=== PATIENT | male | born 1960 | race Caucasian/White ===

== ENCOUNTER 2021-09-01 17:40 | Emergency (ER) | payer BC, SELFPAY ==
--- NOTE | ~2021-09-01 | XR_ITS ---
XR shoulder RT min 2V DATE: 09/01/2021 18:16 INDICATION: Fall. Right shoulder injury, pain TECHNIQUE: 3 views COMPARISON: None FINDINGS: No fracture or dislocation, periosteal reaction or bone destruction or abnormal soft tissue calcification is detected. Status post sternotomy and coronary bypass graft surgery. IMPRESSION: No fracture or dislocation of right shoulder is detected Reviewed, dictated and finalized at location [facility].
--- NOTE | ~2021-09-01 | CT_ITS ---
EXAMINATION: CT brain wo con DATE: 09/01/2021 18:08 INDICATION: Fall last night TECHNIQUE: Computed tomography (CT) of the head was performed without intravenous contrast. The mA wa s adjusted according to patient size. Iterative reconstruction technique was employed. Exam dose: 12 10.67 mGy-cm total exam DLP. COMPARISON: None FINDINGS: There is diminished attenuation of the right occipital lobe with irregular hemorrhage scatt ered through this area, suggesting a hemorrhagic infarct. Alternatively, hematoma and contusion would be a consideration. No intracranial mass lesion is evident. No midline shift or mass effect is noted. Bilateral carotid siphon and supraclinoid internal carotid artery calcifications and bilateral verteb ral artery and basilar artery calcifications. There is nonspecific diminished attenuation cerebral wh ite matter, likely due to chronic small vessel ischemic changes. No fracture or bone destruction of the cranial vault is detected. IMPRESSION: Right occipital hemorrhagic infarct or hematoma Cerebral atherosclerosis and chronic small vessel ischemic changes of the cerebral white matter The report was given by telephone from Dr. Watkins to emergency room physician Dr. Georges on 09/01/2021 at 1845 hours. Reviewed, dictated and finalized at [facility]. Reviewed, dictated and finalized at location A. IMPRESSION: Right occipital hemorrhagic infarct or hematoma Cerebral atherosclerosis and chronic small vessel ischemic changes of the cereb ral white matter The report was given by telephone from Dr. Watkins to emergency room physician Dr. Georges on 09/01/2021 at 1845 hours.
[2021-09-01 17:35] VITALS: BP 124/75; PULSE 94; RESP 18; TEMP 36.8; O2SAT 95
--- NOTE | 2021-09-01 17:55 | ECG_ITS ---
Measurements Intervals [place] Rate: 91 P: 34 OK: 179 QRS: -51 QRSD: 106 T: 95 QT: 366 QTc: 451 Interpretive Statements SINUS RHYTHM MARKED LEFT AXIS DEVIATION [QRS AXIS < -30] ANTERIOR MYOCARDIAL INFARCTION , OF INDETERMINATE AGE [40+ ms Q WAVE AND/OR ST/T ABNORMALITY IN V3/V4] NO PREVIOUS ECG AVAILABLE FOR COMPARISON Electronically Signed On 09-02-2021 13:00:41 CDT by Stefania Owens M.D.
--- NOTE | 2021-09-01 17:56 | ED.GENADULT ---
HPI - General Adult General Chief complaint: Altered Mental Status Stated complaint: psych Time Seen by Provider: 09/01/21 17:47 History of Present Illness HPI narrative: 61-year-old male presents emergency department by EMS for psychiatric evaluation. EMS and family states that the patient was recently at [facility] and had a negative work-up. They feel that nothing is changed but they wanted him brought here for evaluation. Patient does admit to having a fall last night, states he may have struck his head but denies any loss of consciousness. Patient does complain of right shoulder pain. Patient is alert and oriented x4. Related Data Allergies Allergy/AdvReac Type Severity Reaction Status Date / Time METOCLOPRAMIDE HCL Allergy Mild Vomiting Uncoded 09/01/21 17:45 Review of Systems Review of Systems: CONSTITUTIONAL: Denies fever, chills, or sweats. EYES: Denies visual changes, redness, or discharge. ENT: Denies rhinorrhea, congestion, sore throat, or otalgia. CARDIOVASCULAR: Denies chest pain, palpitations, or edema. RESPIRATORY: Denies cough or dyspnea. GASTROINTESTINAL: Denies abdominal pain, nausea, vomiting, or diarrhea. GENITOURINARY: Denies dysuria or hematuria. SKIN: Denies rash or itching. MUSCULOSKELETAL: Denies back pain, joint pain, or myalgia. NEUROLOGIC: Denies headache, numbness, or weakness. PMFSH Past Medical History Medical History (Updated 09/04/21 @ 19:53 by Johnny Martin MD) COPD (chronic obstructive pulmonary disease) Coronary artery disease CVA (cerebral vascular accident) Diabetes Hypertension Kidney stones Surgical History Surgical History (Updated 09/04/21 @ 19:48 by Johnny Martin MD) History of percutaneous coronary intervention x3 Family History Family History (Updated 01/16/16 @ 23:19 by DOCTOR UNKNOWN) Mother Family history of diabetes mellitus in first degree relative Other Diabetes mellitus Hypertension Social History Social History (Updated 09/04/21 @ 19:49 by Johnny Martin MD) Smoking status: Current some day smoker Alcohol intake: never Substance use type: does not use Exam Narrative: APPEARANCE: Well appearing, no pain, no distress, well-nourished. HEAD: normocephalic, atraumatic. EYES: PERRLA/EOMI, conjunctivae clear. NOSE: Normal no drainage NECK: Supple. No adenopathy, no masses. RESPIRATORY: Airway patent, respirations nonlabored. Clear to auscultation bilaterally, no rales, rhonchi, wheezing. CARDIOVASCULAR: Regular rate and rhythm without murmurs rubs or gallops. ABDOMINAL: Soft, nontender, nondistended, normal bowel sounds MUSCULOSKELETAL: Moves all extremities. Strength/ROM intact, No edema, No calf tenderness. NEURO: Alert. Cranial nerves II through XII intact. Good gait. Good coordination SKIN: Warm, dry. Normal Color PSYCHIATRIC: labile affect. confused at times and becomes tearful Course Course Emergency Course: case was discussed with neurology at [facility] due to CT finding of a possible hemorrhagic infarction. Due to the possibility of this being a result of trauma patient was accepted as an ED to ED transfer. Patient was updated on the results of his CT. Patient was requesting to sign out AMA so that he could go home to his . Patient's was requesting transfer. I had a long discussion with the patient and ultimately patient did agree to transfer. Patient was stable at time of transfer. Vital Signs Vital signs: Vital Signs Temperature 98.2 F 09/01/21 17:35 Pulse Rate 94 09/01/21 17:35 Respiratory Rate 18 09/01/21 17:35 Blood Pressure 124/75 09/01/21 17:35 Pulse Oximetry 95 09/01/21 17:35 Temperature 98.2 F 09/01/21 17:35 Pulse Rate 94 09/01/21 19:10 Respiratory Rate 18 09/01/21 19:10 Blood Pressure 128/99 H 09/01/21 19:10 Pulse Oximetry 100 09/01/21 19:10 Medical Decision Making Vital Signs Vital Signs: Vital Signs Temperature 98.2 F 09/01/21 17:35 Pulse Rate 94
[2021-09-01 18:30] LABS: Basophils Percent Auto 0.4 % (0.2-1.2); Eosinophils Absolute Auto 0.1 K/mm3 (0-0.3); Eosinophils Percent Auto 1.1 % (0-4.4); Hematocrit 34.8 % (42.0-52.0); Hemoglobin 11.4 g/dL (14.0-18.0); Immature Granulocyte Absolute 0.04 K/mm3 (0.00-0.031); Immature Granulocyte Percent A 0.4 % (0-0.5); Lymphocytes Absolute Auto 1.85 K/mm3 (0.9-3.2); Lymphocytes Percent Auto 18.1 % (18.3-44.2); Mean Corpuscular HGB Conc 32.8 g/dl (32-36); Mean Corpuscular Hemoglobin 31.1 pg (26-34); Mean Corpuscular Volume 94.8 fl (80-100); Mean Platelet Volume 11.6 fl (7.4-10.4); Monocytes Absolute Auto 1.1 K/mm3 (0.1-0.6); Monocytes Percent Auto 10.8 % (2.6-8.5); Neutrophils Absolute Auto 7.1 K/mm3 (1.3-6.7); Neutrophils Percent Auto 69.2 % (45.5-73.1); Platelet Count Result 290 k/mm3 (150-375); Red Blood Count 3.67 M/mm3 (4.6-6.20); Red Cell Distribution Width 13.8 % (11.5-14.5); White Blood Count 10.2 K/mm3 (4.5-10.0)
[2021-09-01 18:35] VITALS: O2SAT 96
[2021-09-01 18:37] VITALS: BP 123/85; PULSE 89; RESP 16; O2SAT 96
[2021-09-01 18:40] LABS: Add Urine Microscopic? YES; Appearance Urine Clear (Clear); Bacteria Urine Trace /hpf; Bilirubin Urine Negative (Negative); Blood Urine Negative (Negative); Color Urine Yellow (Yellow); Glucose Urine UA 3+ mg/dL (Negative); Ketones Urine 1+ mg/dL (Negative); Leukocyte Esterase Ur Negative LEU/UL (Negative); Mucus Urine Rare /lpf; Nitrate Urine Negative (Negative); Protein Urine Negative (Negative); RBC Urine 0-2 /hpf (0-2); Urobilinogen Urine Negative mg/dL (<2.0); WBC Urine 0-3 /hpf
[2021-09-01 18:41] LABS: Acetaminophen < 10 ug/mL (10-30); Ethanol < 10 mg/dL (<10); Salicylate < 1.0 mg/dL (2-20)
[2021-09-01 18:45] VITALS: PULSE 87; RESP 17; O2SAT 96
[2021-09-01 18:52] LABS: INR 1.1; Prothrombin Time 13.6 Seconds (11.1-14.7)
[2021-09-01 18:54] LABS: Partial Thromboplastin Time 45.7 SECONDS (22.3-36.8)
[2021-09-01 18:57] LABS: Alanine Aminotransferase 11 U/L (4-50); Albumin Level 4.1 g/dL (3.5-5.1); Alkaline Phosphatase 97 U/L (38-126); Anion Gap 11 mmol/L (8-16); Aspartate Amino Transferase 18 U/L (17-59); Bilirubin,Total 0.6 mg/dL (0.2-1.3); Blood Urea Nitrogen 8 mg/dL (9-20); Calcium 8.9 mg/dL (8.4-10.2); Carbon Dioxide 21 mmol/L (22-30); Chloride 106 mmol/L (98-107); Estimated CRCL calculation 94 ml/min; Estimated Glomerular Filt Rate > 60; Glucose 217 mg/dL (65-110); Potassium 3.5 mmol/L (3.4-5.0); Sodium 138 mmol/L (137-145)
[2021-09-01 19:10] VITALS: BP 128/99; PULSE 94; RESP 18; O2SAT 100
[2021-09-01 19:27] LABS: Thyroid Stimulating Hormone 0.903 uIU/mL (0.465-4.680)
--- NOTE | 2021-09-01 19:59 | PC.NURSE ---
1720 pt refusing transfer to [facility] states he wants to go home and will come back to hospital tomorrow. Advised to go to [facility] erp notified of patient request will talk with patient
--- NOTE | 2021-09-01 20:01 | PC.NURSE ---
pt dressed and sitting on end of stretcher requesting to leave does not have ride home
--- NOTE | 2021-09-01 20:08 | PC.NURSE ---
spoke with she agrees he should stay in the hospital and will ask him to stay
--- NOTE | 2021-09-01 20:10 | PC.NURSE ---
called [facility] for ETA update. ETA 04-03
--- NOTE | 2021-09-01 20:20 | PC.NURSE ---
pt insisting on leaving advised to stay A&O x 2 does not recall what day it is states he does not play the day game anymore. Spoke with again she wants pt to go to [facility] and will not be able to pick him up. Erp notified will talk with patient.
--- NOTE | 2021-09-01 20:27 | PC.NURSE ---
pt agrees to transfer
[2021-09-01 21:03] LABS: Amphetamine Screen Urine Negative (Negative); Barbiturate Screen Urine Negative (Negative); Benzodiazepines Screen Urine Negative (Negative); Cannabinoid Screen Urine Negative (Negative); Cocaine Screen Urine Negative (Negative); Methadone Screen Urine Negative (Negative); Opiate Screen Urine Negative (Negative); Phencyclidine Screen Urine Negative (Negative)
== END 2021-09-01 20:30 | disposition short-term general hospital (02) ==
PROVIDERS: Emergency Provider Emergency Medicine
DX: S06.360A Traumatic hemorrhage of cerebrum, unspecified, without loss of consciousness, initial encounter (principal); S49.91XA Unspecified injury of right shoulder and upper arm, initial encounter; R94.31 Abnormal electrocardiogram [ECG] [EKG]; W19.XXXA Unspecified fall, initial encounter
CPT/HCPCS: 36415; 70450; 73030; 80053; 80307; 81001; 84443; 85025; 85610; 85730; 86850; 86900; 86901; 93005; 99285

== ENCOUNTER 2021-09-04 14:47 | Observation (INO) | payer BC, SELFPAY ==
[2021-09-04] VITALS (8 sets, daily range): BP systolic 110–122; BP diastolic 69–77; PULSE 80–93; RESP 15–22; TEMP 36.6; O2SAT 97–100; BMI 23.7
--- NOTE | ~2021-09-04 | XR_ITS ---
XR chest 2V DATE: 09/04/2021 15:47 INDICATION: Hallucinations TECHNIQUE: AP and lateral views COMPARISON: 11/22/2013 PA and lateral chest FINDINGS: Status post sternotomy. Heart size is within normal range. No hilar or mediastinal enlargement. Bilateral hyperinflation. No pulmonary infiltrate or consolidation, pleural effusion or pulmonary vas cular congestion or pneumothorax is detected. There is mild dextroscoliosis of the thoracolumbar spine. Diffuse osteopenia. IMPRESSION: Status post sternotomy No active cardiopulmonary disease Moderate hyperinflation Reviewed, dictated and finalized at location A.
--- NOTE | 2021-09-04 15:29 | ED.PSYCH ---
HPI - Psych General Chief Complaint: Psychiatric Symptoms Stated Complaint: mental evaluation? Time Seen by Provider: 09/04/21 15:02 History of Present Illness HPI Narrative: Patient is a 61-year-old male who presents ER for psychiatric evaluation by his . Patient's reports that over the last 2 months since patient had a stroke in June 2021 patient has had confusion. She reports that he was wandering outside in his loss. Please keep being called by neighbors due to his generalized confusion and wandering. He has been starting to cut open pillows and sheets with scissors at night because he thinks there are people trying to sleep with his . He currently endorses that there is a clown standing against wall in the room and that there are 2 other individuals there. Patient's reports that he is also been leaving the gas on the oven on in the home and was found messing with the water heater today. Patient does not remember these instances. He was seen here on 09/01 and was found to have a hemorrhagic stroke. From what I can understand from the patient then went to [facility], they were told that this was stable and he was discharged from the hospital yesterday. She reports he did not engage on his hallucinations and they told her that he merely had cognitive decline. From conversation sounds like patient has been to multiple hospitals for this including [facility] which is where all the symptoms began several months back. Related Data Allergies Allergy/AdvReac Type Severity Reaction Status Date / Time METOCLOPRAMIDE HCL Allergy Mild Vomiting Uncoded 09/01/21 17:45 Review of Systems Review of Systems: ROS unobtainable: Yes unobtainable due to mental status PMFSH Past Medical History Medical History (Updated 09/04/21 @ 19:53 by Johnny Martin MD) COPD (chronic obstructive pulmonary disease) Coronary artery disease CVA (cerebral vascular accident) Diabetes Hypertension Kidney stones Surgical History Surgical History (Updated 09/04/21 @ 19:48 by Johnny Martin MD) History of percutaneous coronary intervention x3 Family History Family History (Updated 01/16/16 @ 23:19 by DOCTOR UNKNOWN) Mother Family history of diabetes mellitus in first degree relative Other Diabetes mellitus Hypertension Social History Social History (Updated 09/04/21 @ 19:49 by Johnny Martin MD) Smoking status: Current some day smoker Alcohol intake: never Substance use type: does not use Exam Narrative: GENERAL: Well-appearing, well-nourished, and in no acute distress. HEAD: Normocephalic, atraumatic. EYES: PERRLA and EOMI. ENT: Mucous membranes moist. CHEST: Clear to auscultation. No respiratory distress. HEART: Regular rate and rhythm. Normal peripheral pulses. ABDOMEN: Soft, nontender, nondistended. EXTREMITIES: Normal range of motion. No edema. SKIN: Warm, dry, no rash. NEURO: Patient intermittently alert and oriented x3 but usually confused after repeated questioning. No facial droop or word searching. No dysarthria. Moves all extremities well. Patient has difficulty following lines of questioning. PSYCH: Slight anxiousness, endorses seeing people in the room that are not actually there. He is not interacting with these visual hallucinations. No SI/HI. Course Course Emergency Course: Patient with some increased agitation. May be related to time of day or due to the Ativan. Patient is taken off his close was now laying on his side in the bed. Admit to hospitalist service. Vital Signs Vital signs: Vital Signs Pulse Oximetry 100 09/04/21 15:03 Temperature 98 F 09/04/21 15:45 Pulse Rate 80 09/04/21 16:00 Respiratory Rate 15 09/04/21 16:00 Blood Pressure 113/77 09/04/21 15:16 Pulse Oximetry 100 09/04/21 16:00 MDM - Psych Lab Data Result diagrams: 09/04/21 15:50 09/04/21 15:50 Labs: Lab Results 09/04
--- NOTE | 2021-09-04 15:56 | PC.NURSE ---
Records request faxed to [facility].
[2021-09-04 16:01] LABS: Add Urine Microscopic? YES; Appearance Urine Clear (Clear); Bilirubin Urine Negative (Negative); Blood Urine Negative (Negative); Color Urine Straw (Yellow); Glucose Urine UA 3+ mg/dL (Negative); Ketones Urine Negative (Negative); Leukocyte Esterase Ur Negative LEU/UL (Negative); Mucus Urine Rare /lpf; Nitrate Urine Negative (Negative); Protein Urine Negative (Negative); Squamous Epithelial Cell Urine Rare /hpf (Few); Urobilinogen Urine Negative mg/dL (<2.0); WBC Urine 0-3 /hpf
[2021-09-04 16:03] LABS: Basophils Absolute Auto 0.1 K/mm3 (0.0-0.1); Basophils Percent Auto 0.7 % (0.2-1.2); Eosinophils Absolute Auto 0.2 K/mm3 (0-0.3); Hematocrit 35.9 % (42.0-52.0); Hemoglobin 11.8 g/dL (14.0-18.0); Immature Granulocyte Absolute 0.02 K/mm3 (0.00-0.031); Immature Granulocyte Percent A 0.2 % (0-0.5); Lymphocytes Absolute Auto 1.96 K/mm3 (0.9-3.2); Lymphocytes Percent Auto 22.2 % (18.3-44.2); Mean Corpuscular HGB Conc 32.9 g/dl (32-36); Mean Corpuscular Hemoglobin 31.3 pg (26-34); Mean Corpuscular Volume 95.2 fl (80-100); Mean Platelet Volume 11.2 fl (7.4-10.4); Monocytes Percent Auto 11.8 % (2.6-8.5); Neutrophils Absolute Auto 5.6 K/mm3 (1.3-6.7); Neutrophils Percent Auto 63.1 % (45.5-73.1); Platelet Count Result 306 k/mm3 (150-375); Red Blood Count 3.77 M/mm3 (4.6-6.20); Red Cell Distribution Width 13.7 % (11.5-14.5); White Blood Count 8.8 K/mm3 (4.5-10.0)
[2021-09-04 16:04] LABS: Specific Grav Ur 1.035 (1.001-1.035)
[2021-09-04 16:07] LABS: Amphetamine Screen Urine Negative (Negative); Barbiturate Screen Urine Negative (Negative); Benzodiazepines Screen Urine Negative (Negative); Cannabinoid Screen Urine Negative (Negative); Cocaine Screen Urine Negative (Negative); Methadone Screen Urine Negative (Negative); Opiate Screen Urine Negative (Negative); Phencyclidine Screen Urine Negative (Negative)
[2021-09-04 16:13] LABS: Alanine Aminotransferase 12 U/L (4-50); Alkaline Phosphatase 93 U/L (38-126); Anion Gap 9 mmol/L (8-16); Aspartate Amino Transferase 20 U/L (17-59); Bilirubin,Total 0.3 mg/dL (0.2-1.3); Blood Urea Nitrogen 9 mg/dL (9-20); Calcium 8.6 mg/dL (8.4-10.2); Carbon Dioxide 23 mmol/L (22-30); Chloride 104 mmol/L (98-107); Estimated Glomerular Filt Rate > 60; Glucose 259 mg/dL (65-110); Potassium 3.8 mmol/L (3.4-5.0); Sodium 136 mmol/L (137-145)
[2021-09-04 16:14] LABS: Ethanol < 10 mg/dL (<10)
[2021-09-04 16:28] LABS: Valproic Acid 12.3 ug/mL (50-120)
[2021-09-04] MEDS: LORazepam INJ (*CRX) 2 MG/ML VIAL 1 MG IV PUSH (17:24)
--- NOTE | 2021-09-04 19:15 | PM.IMHP ---
H&P: HPI History of Present Illness Date/Time: 09/04/21 19:15 Chief Complaint: Behavioral issues. Narrative: This is an unfortunate 61-year-old male with coronary artery disease, hypertension, dyslipidemia, diabetes, and ischemic stroke in June 2021 with hemorrhagic conversion who presented to the emergency department via private vehicle accompanied by his for evaluation of behavioral issues. Given his current clinical condition, he is unable to provide an accurate history and as such all of the following is obtained via a review of his electronic medical records as well as lengthy discussions with his . Near the end of June he started to complain of vision changes and vertigo at which time he was seen at [place] and transferred to [facility] for what sounds like an ischemic stroke where he was admitted for a couple of days and was discharged home. A week or so thereafter he developed confusion and was once again seen in the ER and at that time he was transferred to [place] due to what sounds like hemorrhagic conversion of his stroke. He was at [place] for several days and he was started on Keppra given concerns for possible seizure related to the stroke. He was once again discharged home however since that time states he has just not been his usual self. Apparently he has been suffering from hallucinations (seeing things that are not there and imagining bizarre scenarios) and confusion (he has been turning on the gas stove in their home and has been wandering outside of the house and giving false reports to neighbors and encouraging them to call the please). Several days ago while out walking he sustained a fall and he was brought to this facility where a brain CT showed a right occipital hemorrhagic infarct or hematoma and he was transferred to [facility]. He was started on trazodone at that facility for and his Keppra dose was decreased as there were concerns that his confusion was related to this drug. He was discharged home just yesterday evening and unfortunately he continues to have behavioral disturbances. In addition to hallucinations and confusion, he is occasionally aggressive to his and teenage sons and his is just not able to handle him at home in this state. The symptoms seem to be worse in the evening and at nighttime. The patient is still continent and able to dress himself and eat without assistance. Prior to his bypass surgery in April 2021, he never demonstrated bizarre behavior though he had episodes of delirium during that stay though he was his usual self when he went home after the bypass. At the time my evaluation he is constantly trying to get out of bed and reports that he seems to be more confused after receiving Ativan in the ER. Ultimately he decided to sit cross-legged in bed and he has pulled the sheet up over his head. He gave me one-word answers to a couple of my questions and did not really participate. Review of Systems Review of Systems: A review of systems is unable to be obtained given his current clinical condition as detailed above. denies recent illnesses. He has not voiced any complaints to his . [facility] Past Medical History Medical History (Updated 09/04/21 @ 22:06 by Rosita Lyons PA-C) Cerebrovascular accident (06/2021) It sounds as though he had an ischemic stroke (symptoms include vertigo and visual changes) with hemorrhagic conversion. Chronic obstructive pulmonary disease Coronary artery disease Status post bifurcation stents to the LAD and diagonal in 2006, stent to the LAD for in-stent restenoses in 2009, and CABG in April 2021 at [facility]. Gastroesophageal reflux disease Hypertension Kidney stones Type 2 diabetes mellitus Surgical History Surgical History (Updated 09/04/21 @ 21:48 by Rosita Lyons PA-C) History of coronary artery bypass graft (04/2021) Done at [facility]. History of inguinal dane
--- NOTE | 2021-09-04 19:37 | PC.NURSE ---
1824 Called to patient's room by and tech. Patient had removed all of his clothing and had grabbed his by the shirt collar. Resettled patient in bed with bed alarm. Removed secured entrance monitor, pulse ox, and blood pressure cuff due to patient's confusion. Notified Dr. Martin.
--- NOTE | 2021-09-04 20:25 | ADMGEN ---
This patient, Baldev Qiu, was admitted to [facility] Surg Room 317-02. Patient/family oriented to hospital policies and general routines including ID bracelet, bed and alarms, visiting hours, pain management, procedures, bathroom and other care routines, personal items, smoking policy, room service/diet, and visiting hours. Information on how to activate the Rapid Response Team has been discussed. Patient/Family are encouraged to report perceived risks to care and to ask questions if they do not understand what they are told or what they should do.
[2021-09-05 05:48] VITALS: BP 117/76; PULSE 87; RESP 18; TEMP 36.2; O2SAT 96
[2021-09-05 05:59] LABS: Hematocrit 39.3 % (42.0-52.0); Hemoglobin 12.9 g/dL (14.0-18.0); Mean Corpuscular HGB Conc 32.8 g/dl (32-36); Mean Corpuscular Hemoglobin 30.4 pg (26-34); Mean Corpuscular Volume 92.7 fl (80-100); Platelet Count Result 311 k/mm3 (150-375); Red Blood Count 4.24 M/mm3 (4.6-6.20); Red Cell Distribution Width 13.4 % (11.5-14.5); White Blood Count 7.8 K/mm3 (4.5-10.0)
[2021-09-05 06:11] LABS: Hemoglobin A1C 10.5 % (<5.7)
[2021-09-05 06:13] LABS: Alanine Aminotransferase 13 U/L (4-50); Albumin Level 3.9 g/dL (3.5-5.1); Alkaline Phosphatase 90 U/L (38-126); Anion Gap 7 mmol/L (8-16); Aspartate Amino Transferase 21 U/L (17-59); Bilirubin,Total 0.3 mg/dL (0.2-1.3); Blood Urea Nitrogen 8 mg/dL (9-20); Calcium 8.7 mg/dL (8.4-10.2); Carbon Dioxide 24 mmol/L (22-30); Chloride 107 mmol/L (98-107); Estimated CRCL calculation 119 ml/min; Estimated Glomerular Filt Rate > 60; Glucose 137 mg/dL (65-110); Magnesium 1.9 mg/dL (1.6-2.3); Potassium 3.7 mmol/L (3.4-5.0); Sodium 138 mmol/L (137-145)
[2021-09-05 06:49] LABS: Ammonia < 9 umol/L (9-30)
[2021-09-05 07:57] LABS: Glucose Point of Care 142 mg/dl (65-105)
[2021-09-05 08:47] VITALS: O2SAT 96
[2021-09-05 11:42] LABS: Glucose Point of Care 185 mg/dl (65-105)
--- NOTE | 2021-09-05 12:47 | WPDNEURCNPN ---
Consult date: 09/05/21 HPI: Baldev Qiu is a 61 year old male brought to the emergency room for the mental evaluation by his reportedly over the last 2 months, ever since the patient had a stroke in June of 2021 he has confusion. He was reportedly wandering outside . He kept calling his neighbors due to his generalized confusion and wandering and has started to cut open pillows and sheets with seizures at night because he was thinking there are people trying to sleep with his he was currently in dosing that there is a prolonged standing against the wall in the room and the 2 other individuals there he has been leaving the gas on the oven and was also found messing with water heater day of admission though patient is unable to remember these instances he was found to have a hemorrhagic stroke on 09/01 then he was transferred to [facility] and was discharged after being told that he was stable from the conversation in the emergency room his sounded like patient had been to multiple hospitals including [facility] way all the symptoms began several months ago. Patient is reportedly allergic to metoclopramide, has the history of COPD, coronary artery disease, diabetes mellitus, hypertension, and cerebrovascular accident. He has also undergone percutaneous coronary intervention, he is currently some day smoker he is not alcohol consumer at present, initial lab evaluation was unrewarding valproic acid level 12.3 alcohol level less than [address] scan of the head documented right occipital hemorrhagic infarct with chronic small vessel ischemic changes, evidently shoulder x-rays revealed no fracture or dislocation of the right shoulder and chest x-ray documented status post sternotomy with no acute cardiopulmonary disease. Routine lab was consistent of only hyperglycemia and glycosuria Review of Systems Review of Systems: All systems reviewed & are unremarkable except as noted in HPI and below [facility] Past Medical History Medical History Cerebrovascular accident (06/2021) It sounds as though he had an ischemic stroke (symptoms include vertigo and visual changes) with hemorrhagic conversion. Chronic obstructive pulmonary disease Coronary artery disease Status post bifurcation stents to the LAD and diagonal in 2006, stent to the LAD for in-stent restenoses in 2009, and CABG in April 2021 at [facility]. Gastroesophageal reflux disease Hypertension Kidney stones Type 2 diabetes mellitus Surgical History Surgical History History of coronary artery bypass graft (04/2021) Done at [facility]. History of inguinal hernia repair History of myringoplasty History of percutaneous coronary intervention Bifurcation stents to LAD and diagonal in 2006. Stent to the LAD in 2009. Family History Family History Mother Family history of diabetes mellitus in first degree relative Other Diabetes mellitus Hypertension Social History Social History Social History: The patient lives with his and 2 teenage sons in [place]. 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 He smoked about a pack a day and quit at the time of his bypass in April 2021. No alcohol or illicit substance abuse. Fadumo Qiu, , is his surrogate decision maker. Code status: Full code. Years smoked: 45 Tobacco type: cigarettes Other substance usage details: Alcholic in his 20's Spiritual care concerns: No Meds Home Medications and Allergies Home Medications Medication Instructions Recorded Confirmed Type albuterol sulfate [ProAir HFA] 90 mcg INHALATION QID 09/05/21 09/05/21 History aspirin [Adult Low Dose Aspirin] 81 mg PO DAILY 09/05/21 09/05/21 History atorvastatin [Lipitor] 40 mg PO DAILY 09/05/21
--- NOTE | 2021-09-05 13:28 | PM.IMPN ---
Progress Note: A&P Assessment and Plan (1) Behavior disturbance: Code(s): F91.9 - Conduct disorder, unspecified Status: Acute Assessment and Plan: He may very well have vascular dementia though some behavioral changes may have stemmed from his stroke. reports that his confusion and hallucinations were much worse after he was started on Keppra and it may be prudent to try a different anti seizure medication thus will ask Dr. Davidson to see him in consultation. There are no focal deficits on exam and his labs are not concerning for a metabolic cause of his behavior. He seemed to get more confused with Ativan given in the ER thus I would avoid benzodiazepines in this gentleman. Trazodone is probably not the best drug if we were worried about seizures. If he is difficult to control with reorientation or becomes a harm to himself, Seroquel or another antipsychotic may be appropriate. Initiate fall precautions. (2) Delirium: Code(s): R41.0 - Disorientation, unspecified Status: Acute Assessment and Plan: An ongoing problem over the last several weeks as detailed above. Hopefully we can find a medication regimen that is beneficial for the patient and keep him safe however he is unable to go home in this state. Plan is as detailed above. (3) Hypertension: Code(s): I10 - Essential (primary) hypertension Status: Acute Assessment and Plan: Blood pressures were reviewed and they are stable. Continue antihypertensives and monitor closely. (4) Type 2 diabetes mellitus: Code(s): E11.9 - Type 2 diabetes mellitus without complications Status: Acute Assessment and Plan: Random glucose was over 200. Patient's hemoglobin A1c is 10.5. It appears the patient was on Jardiance at home, but unsure of compliance at this time. Will resume patient's home Jardiance and continue with blood glucose monitoring before meals and at bedtime sliding scale insulin. (5) Chronic obstructive pulmonary disease: Code(s): J44.9 - Chronic obstructive pulmonary disease, unspecified Status: Acute Assessment and Plan: No acute issues. (6) Recent cerebrovascular accident: Code(s): Z86.73 - Personal history of transient ischemic attack (TIA), and cerebral infarction without residual deficits Status: Acute Assessment and Plan: It sounds as though the patient suffered an ischemic stroke with hemorrhagic conversion. Records requested for review. (7) Coronary artery disease: Code(s): I25.10 - Atherosclerotic heart disease of [place] coronary artery without angina pectoris Status: Acute Assessment and Plan: Status post CABG in April 2021. No acute issues. Subjective Date/time seen: 09/05/21 13:28 Patient resting in bed states he feels fine and would like to go home. Patient remains confused thinking he is at [facility]. Patient is able to say that the year is 2021. Patient denies seeing any people in his room or having any hallucinations at this time. Review of Systems Review of Systems: Unsure of how accurate review of systems are secondary to patient's confusion. Exam Narrative: Constitutional: Patient is a cachectic unkempt 61-year-old gentleman who is in no acute distress. Patient is alert and oriented x3 HEENT: Moist mucous membranes. No scleral icterus. No lymphadenopathy. Neck: No carotid bruits noted no JVD noted Lungs: Lung sounds are clear to auscultation bilaterally. No accessory muscle use. No rhonchi, rales, or wheezes noted. Cardiovascular: Apical pulse is regular rate and rhythm. S1-S2 noted, no S3 or S4 noted. No gallops, murmurs, or rubs noted. Abdomen: Soft, round, and nontender. No palpable masses. Extremities: No edema. Nontender. Skin: No rashes or lesions. Warm and dry. Skin is intact. Neurological: No focal neurological deficits. Cranial nerves II-XII grossly intact.
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
[2021-09-05 14:00] VITALS: BP 143/79; PULSE 89; RESP 16; TEMP 36.2; O2SAT 100
[2021-09-05] MEDS: ATORVASTATIN 40 MG TABLET PO (14:14)
[2021-09-05] MEDS: ASPIRIN 81 MG ENTERIC TABLET PO (14:14)
[2021-09-05] MEDS: EMPAGLIFLOZIN 10 MG TABLET PO (14:15)
[2021-09-05] MEDS: lisinopriL 5 MG TABLET PO (14:15)
[2021-09-05] MEDS: CLOPIDOGREL BISULFATE 75 MG TABLET PO (14:15)
[2021-09-05] MEDS: DIVALPROEX SODIUM ER 500 MG TAB.24H PO (14:15)
[2021-09-05] MEDS: FENOFIBRATE 160 MG TABLET PO (14:15)
[2021-09-05] MEDS: carBAMazepine 200 MG TABLET PO ×2 (15:32→19:51)
[2021-09-05] MEDS: ALBUTEROL SULFATE (*SP) AEROSOL 1 PUFF INHALATION ×2 (16:00→21:01)
[2021-09-05 16:46] LABS: Glucose Point of Care 150 mg/dl (65-105)
[2021-09-05 19:50] VITALS: PULSE 74
[2021-09-05] MEDS: carvediloL 3.125 MG TABLET PO (19:50)
[2021-09-05] MEDS: levETIRAcetam Tablet 250 MG, levETIRAcetam Tablet 500 MG 750 MG PO (19:50)
[2021-09-05] MEDS: QUEtiapine FUMARATE 25 MG TABLET PO (20:18)
[2021-09-05 21:03] VITALS: O2SAT 97
[2021-09-05 21:35] VITALS: BP 130/82; PULSE 98; RESP 20; TEMP 36.6; O2SAT 100
[2021-09-05 23:25] LABS: Glucose Point of Care 158 mg/dl (65-105)
[2021-09-06] VITALS (7 sets, daily range): BP systolic 93–104; BP diastolic 60–65; PULSE 66–85; RESP 16–20; TEMP 36.1–36.6; O2SAT 92–99
[2021-09-06 06:08] LABS: Basophils Absolute Auto 0.1 K/mm3 (0.0-0.1); Basophils Percent Auto 0.7 % (0.2-1.2); Eosinophils Absolute Auto 0.3 K/mm3 (0-0.3); Eosinophils Percent Auto 2.6 % (0-4.4); Hematocrit 38.7 % (42.0-52.0); Hemoglobin 12.6 g/dL (14.0-18.0); Immature Granulocyte Absolute 0.04 K/mm3 (0.00-0.031); Immature Granulocyte Percent A 0.4 % (0-0.5); Lymphocytes Percent Auto 25.1 % (18.3-44.2); Mean Corpuscular HGB Conc 32.6 g/dl (32-36); Mean Corpuscular Volume 95.1 fl (80-100); Mean Platelet Volume 11.2 fl (7.4-10.4); Monocytes Absolute Auto 1.1 K/mm3 (0.1-0.6); Monocytes Percent Auto 10.9 % (2.6-8.5); Neutrophils Percent Auto 60.3 % (45.5-73.1); Platelet Count Result 306 k/mm3 (150-375); Red Blood Count 4.07 M/mm3 (4.6-6.20); Red Cell Distribution Width 13.6 % (11.5-14.5)
[2021-09-06 06:21] LABS: Anion Gap 10 mmol/L (8-16); Blood Urea Nitrogen 12 mg/dL (9-20); Calcium 8.4 mg/dL (8.4-10.2); Carbon Dioxide 22 mmol/L (22-30); Chloride 104 mmol/L (98-107); Estimated CRCL calculation 91 ml/min; Estimated Glomerular Filt Rate > 60; Glucose 183 mg/dL (65-110); Magnesium 1.9 mg/dL (1.6-2.3); Potassium 3.9 mmol/L (3.4-5.0); Sodium 136 mmol/L (137-145)
[2021-09-06] MEDS: ALBUTEROL SULFATE (*SP) AEROSOL 1 PUFF INHALATION ×4 (08:33→19:55)
[2021-09-06 08:35] LABS: Glucose Point of Care 174 mg/dl (65-105)
[2021-09-06] MEDS: carvediloL 3.125 MG TABLET PO ×2 (08:36→20:10)
[2021-09-06] MEDS: ATORVASTATIN 40 MG TABLET PO (08:36)
[2021-09-06] MEDS: lisinopriL 5 MG TABLET PO (08:36)
[2021-09-06] MEDS: carBAMazepine 200 MG TABLET PO ×2 (08:36→20:10)
[2021-09-06] MEDS: CLOPIDOGREL BISULFATE 75 MG TABLET PO (08:36)
[2021-09-06] MEDS: DIVALPROEX SODIUM ER 500 MG TAB.24H PO (08:36)
[2021-09-06] MEDS: ASPIRIN 81 MG ENTERIC TABLET PO (08:36)
[2021-09-06] MEDS: EMPAGLIFLOZIN 10 MG TABLET PO (08:36)
[2021-09-06] MEDS: FENOFIBRATE 160 MG TABLET PO (08:36)
--- NOTE | 2021-09-06 10:00 | PM.IMPN ---
Progress Note: A&P Assessment and Plan (1) Behavior disturbance: Code(s): F91.9 - Conduct disorder, unspecified Status: Acute Assessment and Plan: He may very well have vascular dementia though some behavioral changes may have stemmed from his stroke. reports that his confusion and hallucinations were much worse after he was started on Keppra and it may be prudent to try a different anti seizure medication. Neurology consulted ativan worsned his confusion. fall precautions. seroquel at night. will scheudle for this evening. he is started on tegretal with depakote. furthe rworkup per neurology. EEG in am. has undelryhing ct evdience of right temporooccipital hematoma with local mass effect and some vasogenic edema. (2) Delirium: Code(s): R41.0 - Disorientation, unspecified Status: Acute Assessment and Plan: An ongoing problem over the last several weeks as detailed above. Hopefully we can find a medication regimen that is beneficial for the patient and keep him safe however he is unable to go home in this state. Plan is as detailed above. (3) Hypertension: Code(s): I10 - Essential (primary) hypertension Status: Acute Assessment and Plan: Blood pressures were reviewed and they are stable. Continue antihypertensives and monitor closely. (4) Type 2 diabetes mellitus: Code(s): E11.9 - Type 2 diabetes mellitus without complications Status: Acute Assessment and Plan: Random glucose was over 200. Patient's hemoglobin A1c is 10.5. It appears the patient was on Jardiance at home, but unsure of compliance at this time. Will resume patient's home Jardiance and continue with blood glucose monitoring before meals and at bedtime sliding scale insulin. (5) Chronic obstructive pulmonary disease: Code(s): J44.9 - Chronic obstructive pulmonary disease, unspecified Status: Acute Assessment and Plan: No acute issues. (6) Recent cerebrovascular accident: Code(s): Z86.73 - Personal history of transient ischemic attack (TIA), and cerebral infarction without residual deficits Status: Acute Assessment and Plan: It sounds as though the patient suffered an ischemic stroke with hemorrhagic conversion. Records requested for review. (7) Coronary artery disease: Code(s): I25.10 - Atherosclerotic heart disease of [place] coronary artery without angina pectoris Status: Acute Assessment and Plan: Status post CABG in April 2021. No acute issues. on aspirin only which was restarted. plavix stopped from recent hospital stay. cotninue on atorvastatin Subjective Date/time seen: 09/06/21 10:00 Interval history: HPI:This is an unfortunate 61-year-old male with coronary artery disease, hypertension, dyslipidemia, diabetes, and ischemic stroke in June 2021 with hemorrhagic conversion who presented to the emergency department via private vehicle accompanied by his for evaluation of behavioral issues. Given his current clinical condition, he is unable to provide an accurate history and as such all of the following is obtained via a review of his electronic medical records as well as lengthy discussions with his . Near the end of June he started to complain of vision changes and vertigo at which time he was seen at [place] and transferred to [facility] for what sounds like an ischemic stroke where he was admitted for a couple of days and was discharged home. A week or so thereafter he developed confusion and was once again seen in the ER and at that time he was transferred to [place] due to what sounds like hemorrhagic conversion of his stroke. He was at [place] for several days and he was started on Keppra given concerns for possible seizure related to the stroke. He was once again discharged home however since that time states he has just not been his usual self. Apparently he has been sufferin
[2021-09-06 11:59] LABS: Glucose Point of Care 174 mg/dl (65-105)
[2021-09-06 16:55] LABS: Glucose Point of Care 157 mg/dl (65-105)
[2021-09-06 19:34] LABS: Glucose Point of Care 150 mg/dl (65-105)
[2021-09-06] MEDS: QUEtiapine FUMARATE 12.5 MG TABLET PO (20:09)
[2021-09-07 05:53] LABS: Basophils Absolute Auto 0.1 K/mm3 (0.0-0.1); Basophils Percent Auto 0.7 % (0.2-1.2); Eosinophils Absolute Auto 0.3 K/mm3 (0-0.3); Eosinophils Percent Auto 2.5 % (0-4.4); Hematocrit 41.4 % (42.0-52.0); Hemoglobin 13.5 g/dL (14.0-18.0); Immature Granulocyte Absolute 0.04 K/mm3 (0.00-0.031); Immature Granulocyte Percent A 0.4 % (0-0.5); Lymphocytes Absolute Auto 2.37 K/mm3 (0.9-3.2); Lymphocytes Percent Auto 23.8 % (18.3-44.2); Mean Corpuscular HGB Conc 32.6 g/dl (32-36); Mean Corpuscular Volume 95.2 fl (80-100); Mean Platelet Volume 11.2 fl (7.4-10.4); Monocytes Absolute Auto 1.2 K/mm3 (0.1-0.6); Monocytes Percent Auto 11.6 % (2.6-8.5); Neutrophils Absolute Auto 6.1 K/mm3 (1.3-6.7); Platelet Count Result 326 k/mm3 (150-375); Red Blood Count 4.35 M/mm3 (4.6-6.20); Red Cell Distribution Width 13.7 % (11.5-14.5)
[2021-09-07 06:00] VITALS: BP 95/62; PULSE 88; RESP 16; TEMP 36.1; O2SAT 99
[2021-09-07 06:11] LABS: Alanine Aminotransferase 12 U/L (4-50); Alkaline Phosphatase 88 U/L (38-126); Anion Gap 8 mmol/L (8-16); Aspartate Amino Transferase 19 U/L (17-59); Bilirubin,Total 0.2 mg/dL (0.2-1.3); Blood Urea Nitrogen 14 mg/dL (9-20); Calcium 8.8 mg/dL (8.4-10.2); Carbon Dioxide 24 mmol/L (22-30); Chloride 106 mmol/L (98-107); Estimated CRCL calculation 91 ml/min; Estimated Glomerular Filt Rate > 60; Glucose 161 mg/dL (65-110); Potassium 3.9 mmol/L (3.4-5.0); Sodium 138 mmol/L (137-145)
[2021-09-07 07:43] LABS: Glucose Point of Care 189 mg/dl (65-105)
[2021-09-07] MEDS: ALBUTEROL SULFATE (*SP) AEROSOL 1 PUFF INHALATION (08:57)
[2021-09-07 08:58] VITALS: O2SAT 95
[2021-09-07] MEDS: ASPIRIN 81 MG ENTERIC TABLET PO (09:27)
[2021-09-07] MEDS: DIVALPROEX SODIUM ER 500 MG TAB.24H PO (09:27)
[2021-09-07] MEDS: ATORVASTATIN 40 MG TABLET PO (09:27)
[2021-09-07] MEDS: CLOPIDOGREL BISULFATE 75 MG TABLET PO (09:28)
[2021-09-07] MEDS: EMPAGLIFLOZIN 10 MG TABLET PO (09:28)
[2021-09-07] MEDS: FENOFIBRATE 160 MG TABLET PO (09:28)
[2021-09-07 09:29] VITALS: PULSE 96
[2021-09-07] MEDS: carvediloL 3.125 MG TABLET PO (09:29)
[2021-09-07] MEDS: lisinopriL 5 MG TABLET PO (09:29)
[2021-09-07 09:34] VITALS: BP 114/68; PULSE 96; O2SAT 100
--- NOTE | 2021-09-07 10:59 | WPDNEUROPN ---
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 has been treated with carbamazepine which will be increased [id number] 3 times a day has been continued on aspirin Plavix taken off because of the hemorrhage will have an EEG this morning and subsequently will be discharge and followed up in the office in 6 weeks Time Spent With Patient Time with patient: less than 15 minutes Subjective Date/time seen: 09/07/21 10:59 history of recurrent hallucination and multiple hospital visits in addition to the history of right occipital hemorrhagic infarct considering the possibility of the localization-related recurrent epilepsy patient was started on carbamazepine and has done extremely well the medication has been increased [id number] 3 times a day he is supposed to have an EEG done this morning and after that he can be discharged Review of Systems Review of Systems: All systems reviewed & are unremarkable except as noted in HPI and below Exam Narrative: awake alert cooperative in no obvious acute distress, is speech nor dysphasic no dysarthric not dysphonic, oriented being in the hospital with the nurses and the physician and extremely pleasant at this particular time pupils round regular, extraocular movements full face symmetrical tongue midline motor examination revealed no drift of one-sided other side reflexes symmetrical plantars downgoing there is no evidence of gross cerebellar deficit. Objective Data Vital Signs Vital Signs: Vital Signs - 24 hr 09/06/21 14:00 09/06/21 19:55 09/06/21 20:10 Temperature 36.1 C L Pulse Rate 66 77 Respiratory Rate 20 Blood Pressure 104/65 Pulse Oximetry 99 97 09/06/21 22:00 09/07/21 06:00 09/07/21 08:58 Temperature 36.2 C L 36.1 C L Pulse Rate 80 88 Respiratory Rate 16 16 Blood Pressure 93/60 L 95/62 L Pulse Oximetry 96 99 95 09/07/21 09:29 09/07/21 09:34 Temperature Pulse Rate 96 96 Respiratory Rate Blood Pressure 114/68 Pulse Oximetry 100 Intake/Output Intake/Output: Intake & Output 09/04/21 09/05/21 09/06/21 09/07/21 23:59 23:59 23:59 23:59 Intake Total 1120 1630 480 Output Total 550 1340 Balance 570 290 480 Meds/Results Medications: Active Medications Generic Name Dose Route Start Last Admin Trade Name Freq PRN Reason Stop Dose Admin Acetaminophen 650 mg 09/04/21 19:03 Acetaminophen 325 Mg Tablet PO Q4H PRN Mild Pain (1-3) or Fever Albuterol 1 puff 09/05/21 16:00 09/07/21 08:57 Albuterol Sulfate (*Sp) Aerosol 1 Puff INHALATION 1 puff QIDRT LEAH Administration Aspirin 81 mg 09/05/21 09:00 09/07/21 09:27 Aspirin 81 Mg Enteric Tablet PO 81 mg DAILY LEAH Administration Atorvastatin Calcium 40 mg 09/05/21 09:00 09/07/21 09:27 Atorvastatin 40 Mg Tablet PO 40 mg DAILY LEAH Administration Carbamazepine 200 mg 09/07/21 14:00 Carbamazepine 200 Mg Tablet PO Q8HR LEAH Carvedilol 3.125 mg 09/05/21 21:00 09/07/21 09:29 Carvedilol 3.125 Mg Tablet PO 3.125 mg Q12HR LEAH Administration Dextrose 12.5 gm 09/04/21 23:38 Dextrose 50% 25 Gm/50 Ml Syringe IV PUSH PRN PRN Hypoglycemia Protocol Divalproex Sodium 500 mg 09/05/21 09:00 09/07/21 09:27 Divalproex Sodium Er 500 Mg Tab.24h PO 500 mg DAILY LEAH Administration Empagliflozin 10 mg 09/05/21 09:00 09/07/21 09:28 Empagliflozin 10 Mg Tablet PO 10 mg DAILY LEAH Administration Fenofibrate 160 mg 09/05/21 09:00 09/07/21 09:28 Fenofibrate 160 Mg Tablet PO 160 mg DAILY LEAH Administration Glucagon 1 mg 09/04/21 23:38 Glucagon For Inj 1 Mg Vial IM PRN PRN Hypoglycemia Protocol Glucose 15 gm 09/04/21 23:38 Glucose Oral Gel 15 Gm Of Glucse In 37.5 Gm Tube PO PRN PRN Hypoglycemia Protocol Dextrose 1,000 mls @ 100 mls/hr 09/04/21 23:38 Dextrose 5% 1,000 Ml IVPB PRN PRN Hypoglycemia
[2021-09-07 12:07] LABS: Glucose Point of Care 211 mg/dl (65-105)
[2021-09-07] MEDS: INSULIN ASPART (*BKC) 100 UNITS/ML SUB-Q (12:39)
--- NOTE | 2021-09-07 13:17 | PM.DS ---
DS: Admitting Diagnosis Discharge Date 09/07/2021 Admitting Diagnosis Behavioral Disturbances DS: Discharge Diagnosis Discharge Diagnosis (1) Behavior disturbance: Code(s): F91.9 - Conduct disorder, unspecified Status: Acute DS: Summary Hospital Course Reason for hospitalization: Behavioral Disturbance Hospital Course: 61-year-old male with coronary artery disease, hypertension, dyslipidemia, diabetes, and ischemic stroke in June 2021 with hemorrhagic conversion who presented to the emergency department via private vehicle accompanied by his for evaluation of behavioral issues Neurology was consulted, with history of recurrent hallucination and multiple hospital visits in addition to the history of right occipital hemorrhagic infarct the possibility of the localization-related recurrent epilepsy was high, patient was started on carbamazepine,along with continuing divalproex, EEG was done, report was pending at time of discharge, advised to follow up with Neurology as outpatient. Status at Discharge Functional status at discharge: independent ambulation Time Spent with Patient Time attestation: Total time spent providing and/or coordinating discharge services: Time spent: Greater than 30 minutes Exam Const: General: no acute distress HENMT: Mouth: Yes Abnormal oral and palatal mucosa present Eyes: Sclera: sclerae normal Pupils: Equal, round and reactive pupils present Neck: Neck: supple Resp: Auscultation: clear to auscultation bilaterally Cardio: Rate: regular rate Rhythm: regular rhythm GI: GI Palp: Yes Soft to palpation Auscultation: normal bowel sounds Skin: General skin exam: normal color Psych: Mental Status: mental status grossly normal DS: Data Data Completed and Pending Labs on day of discharge: Labs from last 24 hours 09/07/21 09/07/21 09/07/21 12:05 07:35 05:30 WBC RBC Hgb Hct MCV MCH MCHC RDW Plt Count MPV Immature Gran % (Auto) Neut % (Auto) Lymph % (Auto) [place] % (Auto) Eos % (Auto) Baso % (Auto) Lymph # (Auto) [place] # (Auto) Eos # (Auto) Baso # (Auto) Abs Immat Gran (auto) Absolute Neuts (auto) Absolute Nucleated RBC Nucleated RBC % Sodium 138 Potassium 3.9 Chloride 106 Carbon Dioxide 24 Anion Gap 8 BUN 14 Creatinine 0.80 Estim Creat Clear Calc 91 Estimated GFR > 60 Glucose 161 H POC Capillary Glucose 211 H 189 H Calcium 8.8 Total Bilirubin 0.2 AST 19 ALT 12 Alkaline Phosphatase 88 Total Protein 7.0 Albumin 4.0 09/07/21 09/06/21 09/06/21 05:30 19:24 16:53 WBC 10.0 RBC 4.35 L Hgb 13.5 L Hct 41.4 L MCV 95.2 MCH 31.0 MCHC 32.6 RDW 13.7 Plt Count 326 MPV 11.2 H Immature Gran % (Auto) 0.4 Neut % (Auto) 61.0 Lymph % (Auto) 23.8 [place] % (Auto) 11.6 H Eos % (Auto) 2.5 Baso % (Auto) 0.7 Lymph # (Auto) 2.37 [place] # (Auto) 1.2 H Eos # (Auto) 0.3 Baso # (Auto) 0.1 Abs Immat Gran (auto) 0.04 H Absolute Neuts (auto) 6.1 Absolute Nucleated RBC 0.0 Nucleated RBC % 0.0 Sodium Potassium Chloride Carbon Dioxide Anion Gap BUN Creatinine Estim Creat Clear Calc Estimated GFR Glucose POC Capillary Glucose 150 H 157 H Calcium Total Bilirubin AST ALT Alkaline Phosphatase Total Protein Albumin Discharge Plan Discharge Attending physician on discharge: Nancy Weinberg Consulting providers: Karthikeyan Davidson Discharging Clinician: Nnacy Weinberg Anticipated Discharge Date/Time: 09/07/21 13:11 Patient Disposition: Home, Self-Care Activity: no driving and as tolerated Diet: diabetic Patient Instructions: Antibiotic Form, Carbamazepine (By mouth), Pain Management (GEN), Acute Delirium (GEN), Altered Mental Status (GEN) Stand Alone Forms: General Discharge Information Follow
[2021-09-07] MEDS: carBAMazepine 200 MG TABLET PO (13:33)
--- NOTE | 2021-09-07 14:20 | PC.NURSE ---
Called Shahrzad Qiu about discharge instructions. She verbalized understanding.
--- NOTE | 2021-09-08 10:52 | WPDNEUROLOGY ---
Neurology EEG Report General Information Date of Study: 09/07/21 TEST eeg
--- NOTE | 2021-09-08 10:55 | WPDNEUROLOGY ---
Neurology EEG Report General Information Date of Study: 09/07/21 TEST eeg DIAGNOSIS Possible seizures CONDITION OF RECORDING drowsy and sleep EEG NUMBER [id number] CLINICAL HISTORY patient was admitted 3 days ago for confusion seems better at the time of EEG but does have history of seizures EEG DESCRIPTION basic resting occipital frequency consists of well-organized low to medium voltage 8 to 9 hertz per 2nd alpha admixed with low-voltage 15 to 18 hertz per 2nd beta. Low-voltage beta activity seen diffusely during drowsiness bilateral symmetrical sleep activity seen during sleep. Intermittently throughout the tracing low voltage activity is noted over the right occipital languages. hyperventilation not done. Photic stimulation not done. Non paroxysmal. Focal. Lateralizing. IMPRESSION Abnormal record due to the presence of low-voltage activity over the right occipital language as compared to the left. There is no evidence of any paroxysmal activity throughout the tracing. These abnormalities are suggestive of underlying organic or metabolic encephalopathy with focal structural lesion. clinical correlation recommended.
== END 2021-09-07 14:15 | disposition home or self-care (01) ==
LOC: ANHED 15:58 → ANH3MEDSUR 19:19
PROVIDERS: Internal Medicine; Nurse Practitioner Adult Health; Physician Assistant; Psychiatry & Neurology Neurology; Admitting Provider Family Medicine; Emergency Provider Emergency Medicine; PCP Family Medicine; Visit Provider Internal Medicine
DX: F91.9 Conduct disorder, unspecified (principal); R41.0 Disorientation, unspecified; J44.9 Chronic obstructive pulmonary disease, unspecified; I25.10 Atherosclerotic heart disease of native coronary artery without angina pectoris; I10 Essential (primary) hypertension; E11.9 Type 2 diabetes mellitus without complications; Z86.73 Personal history of transient ischemic attack (TIA), and cerebral infarction without residual deficits; E78.5 Hyperlipidemia, unspecified; Z95.1 Presence of aortocoronary bypass graft; Z95.5 Presence of coronary angioplasty implant and graft; Z79.02 Long term (current) use of antithrombotics/antiplatelets; Z79.51 Long term (current) use of inhaled steroids; Z79.82 Long term (current) use of aspirin; Z79.84 Long term (current) use of oral hypoglycemic drugs; Z79.899 Other long term (current) drug therapy
CPT/HCPCS: 36415; 71046; 80048; 80053; 80164; 80177; 80307; 81001; 82140; 82607; 82948; 83036; 83735; 84443; 85025; 85027; 94640; 95816; 96374; 97116; 97161; 97165; 99285; A9270; G0378; G0379; J1815; J2060

== ENCOUNTER 2021-09-18 08:09 | Emergency (ER) | payer BC, SELFPAY ==
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
[2021-09-18 08:18] VITALS: BP 136/87; PULSE 99; RESP 18; TEMP 36.8; O2SAT 99
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
[2021-09-18 08:46] LABS: Basophils Absolute Auto 0.1 K/mm3 (0.0-0.1); Eosinophils Absolute Auto 0.4 K/mm3 (0-0.3); Eosinophils Percent Auto 3.6 % (0-4.4); Hematocrit 38.7 % (42.0-52.0); Hemoglobin 12.5 g/dL (14.0-18.0); Immature Granulocyte Absolute 0.04 K/mm3 (0.00-0.031); Immature Granulocyte Percent A 0.4 % (0-0.5); Lymphocytes Absolute Auto 1.65 K/mm3 (0.9-3.2); Lymphocytes Percent Auto 14.5 % (18.3-44.2); Mean Corpuscular HGB Conc 32.3 g/dl (32-36); Mean Corpuscular Hemoglobin 31.1 pg (26-34); Mean Corpuscular Volume 96.3 fl (80-100); Monocytes Absolute Auto 1.2 K/mm3 (0.1-0.6); Monocytes Percent Auto 10.8 % (2.6-8.5); Neutrophils Absolute Auto 7.9 K/mm3 (1.3-6.7); Neutrophils Percent Auto 69.7 % (45.5-73.1); Platelet Count Result 282 k/mm3 (150-375); Red Blood Count 4.02 M/mm3 (4.6-6.20); Red Cell Distribution Width 13.8 % (11.5-14.5); White Blood Count 11.4 K/mm3 (4.5-10.0)
[2021-09-18 08:54] LABS: Ethanol < 10 mg/dL (<10)
[2021-09-18 08:55] LABS: Alanine Aminotransferase 15 U/L (4-50); Albumin Level 4.4 g/dL (3.5-5.1); Alkaline Phosphatase 111 U/L (38-126); Anion Gap 13 mmol/L (8-16); Aspartate Amino Transferase 18 U/L (17-59); Bilirubin,Total 0.3 mg/dL (0.2-1.3); Blood Urea Nitrogen 11 mg/dL (9-20); Calcium 8.8 mg/dL (8.4-10.2); Carbon Dioxide 19 mmol/L (22-30); Chloride 105 mmol/L (98-107); Estimated CRCL calculation 94 ml/min; Estimated Glomerular Filt Rate > 60; Glucose 351 mg/dL (65-110); Potassium 4.1 mmol/L (3.4-5.0); Sodium 137 mmol/L (137-145)
[2021-09-18 08:56] LABS: Add Urine Microscopic? YES; Appearance Urine Clear (Clear); Bilirubin Urine Negative (Negative); Blood Urine Negative (Negative); Color Urine Straw (Yellow); Glucose Urine UA 3+ mg/dL (Negative); Ketones Urine Negative (Negative); Leukocyte Esterase Ur Negative LEU/UL (Negative); Mucus Urine Rare /lpf; Nitrate Urine Negative (Negative); Protein Urine Negative (Negative); Squamous Epithelial Cell Urine Rare /hpf (Few); Urobilinogen Urine Negative mg/dL (<2.0); WBC Urine 0-3 /hpf
[2021-09-18 08:57] LABS: Specific Grav Ur 1.035 (1.001-1.035)
[2021-09-18 09:07] LABS: Amphetamine Screen Urine Negative (Negative); Barbiturate Screen Urine Negative (Negative); Benzodiazepines Screen Urine Negative (Negative); Cannabinoid Screen Urine Negative (Negative); Cocaine Screen Urine Negative (Negative); Methadone Screen Urine Negative (Negative); Opiate Screen Urine Negative (Negative); Phencyclidine Screen Urine Negative (Negative)
[2021-09-18] MEDS: DIVALPROEX SODIUM ER 500 MG TAB.24H PO (09:48)
[2021-09-18] MEDS: EMPAGLIFLOZIN 10 MG TABLET PO (09:49)
[2021-09-18] MEDS: lisinopriL 5 MG TABLET PO (09:49)
[2021-09-18] MEDS: carBAMazepine 200 MG TABLET PO (09:49)
[2021-09-18 10:06] LABS: SARS-CoV-2 RNA PCR Negative
[2021-09-18 12:15] VITALS: BP 140/82; PULSE 97; RESP 18; O2SAT 99
== END 2021-09-18 12:18 | disposition home or self-care (01) ==
PROVIDERS: Emergency Provider Emergency Medicine; PCP Family Medicine
DX: R44.1 Visual hallucinations (principal); Z20.822 Contact with and (suspected) exposure to COVID-19; E11.9 Type 2 diabetes mellitus without complications; J44.9 Chronic obstructive pulmonary disease, unspecified; I25.10 Atherosclerotic heart disease of native coronary artery without angina pectoris; I10 Essential (primary) hypertension; K21.9 Gastro-esophageal reflux disease without esophagitis; Z95.5 Presence of coronary angioplasty implant and graft; Z95.1 Presence of aortocoronary bypass graft; Z86.73 Personal history of transient ischemic attack (TIA), and cerebral infarction without residual deficits; Z87.442 Personal history of urinary calculi; Z79.84 Long term (current) use of oral hypoglycemic drugs; Z79.82 Long term (current) use of aspirin; Z87.891 Personal history of nicotine dependence; I73.9 Peripheral vascular disease, unspecified
CPT/HCPCS: 36415; 70450; 80053; 80307; 81001; 84443; 85025; 99284; A9270; C9803; U0003; U0005

== ENCOUNTER 2021-09-23 21:34 | Emergency (ER) | payer OTHER, BC, SELFPAY ==
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
[2021-09-23 21:43] VITALS: BP 154/97; PULSE 102; RESP 16; TEMP 36.2; O2SAT 100
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
[2021-09-23 22:30] VITALS: BP 129/80; PULSE 100; RESP 12
[2021-09-23 22:51] LABS: Basophils Absolute Auto 0.1 K/mm3 (0.0-0.1); Basophils Percent Auto 0.5 % (0.2-1.2); Eosinophils Absolute Auto 0.3 K/mm3 (0-0.3); Eosinophils Percent Auto 1.4 % (0-4.4); Hemoglobin 12.8 g/dL (14.0-18.0); Immature Granulocyte Absolute 0.28 K/mm3 (0.00-0.031); Immature Granulocyte Percent A 1.3 % (0-0.5); Lymphocytes Percent Auto 5.4 % (18.3-44.2); Mean Corpuscular HGB Conc 32.8 g/dl (32-36); Mean Corpuscular Hemoglobin 31.6 pg (26-34); Mean Corpuscular Volume 96.3 fl (80-100); Monocytes Absolute Auto 1.3 K/mm3 (0.1-0.6); Monocytes Percent Auto 5.8 % (2.6-8.5); Neutrophils Absolute Auto 18.9 K/mm3 (1.3-6.7); Neutrophils Percent Auto 85.6 % (45.5-73.1); Platelet Count Result 301 k/mm3 (150-375); Red Blood Count 4.05 M/mm3 (4.6-6.20); Red Cell Distribution Width 13.9 % (11.5-14.5)
[2021-09-23 22:58] LABS: Alanine Aminotransferase 20 U/L (4-50); Albumin Level 4.3 g/dL (3.5-5.1); Alkaline Phosphatase 115 U/L (38-126); Anion Gap 8 mmol/L (8-16); Aspartate Amino Transferase 29 U/L (17-59); Bilirubin,Total 0.2 mg/dL (0.2-1.3); Blood Urea Nitrogen 13 mg/dL (9-20); Calcium 8.3 mg/dL (8.4-10.2); Carbon Dioxide 23 mmol/L (22-30); Chloride 105 mmol/L (98-107); Estimated CRCL calculation 77 ml/min; Estimated Glomerular Filt Rate > 60; Glucose 207 mg/dL (65-110); Prothrombin Time 12.8 Seconds (11.1-14.7); Sodium 136 mmol/L (137-145)
[2021-09-23 22:59] LABS: Partial Thromboplastin Time 39.4 SECONDS (22.3-36.8)
[2021-09-23 23:03] VITALS: BP 107/79; PULSE 105; PULSE 106; RESP 18; O2SAT 98
[2021-09-23 23:15] VITALS: BP 121/85; PULSE 98; RESP 17; O2SAT 97
[2021-09-23 23:45] VITALS: BP 123/87; PULSE 93; RESP 17; O2SAT 98
--- NOTE | 2021-09-24 00:01 | PC.NURSE ---
Pt not compliant with c collar. Pt has removed it x 2 himself, reporting that it is uncomfortable and choking him. PA notified.
[2021-09-24 00:15] VITALS: BP 127/85; PULSE 94; RESP 13; O2SAT 98
[2021-09-24 00:30] VITALS: BP 123/85; PULSE 93; RESP 17; O2SAT 100
[2021-09-24 00:32] LABS: Add Urine Microscopic? YES; Appearance Urine Clear (Clear); Bilirubin Urine Negative (Negative); Blood Urine Negative (Negative); Color Urine Yellow (Yellow); Glucose Urine UA 3+ mg/dL (Negative); Ketones Urine Trace mg/dL (Negative); Leukocyte Esterase Ur Negative LEU/UL (Negative); Nitrate Urine Negative (Negative); Protein Urine Negative (Negative); RBC Urine 0-2 /hpf (0-2); Urobilinogen Urine Negative mg/dL (<2.0); WBC Urine 0-3 /hpf
[2021-09-24 00:36] LABS: Lipase 46 U/L (23-300)
[2021-09-24 00:42] LABS: Amphetamine Screen Urine Negative (Negative); Barbiturate Screen Urine Negative (Negative); Benzodiazepines Screen Urine Negative (Negative); Cannabinoid Screen Urine Negative (Negative); Cocaine Screen Urine Negative (Negative); Methadone Screen Urine Negative (Negative); Opiate Screen Urine Negative (Negative); Phencyclidine Screen Urine Negative (Negative)
[2021-09-24 00:45] VITALS: BP 105/61; PULSE 93; RESP 15; O2SAT 98
[2021-09-24 00:54] LABS: Specific Grav Ur 1.037 (1.001-1.035)
[2021-09-24 01:01] VITALS: BP 125/94; PULSE 86; RESP 20
--- NOTE | 2021-09-24 01:37 | PC.NURSE ---
Pt has been re directed to stay in bed multiple times. This RN and HEIDY Worthy at the bedside telling pt we still need imaging results. Pt returned to bed.
--- NOTE | 2021-09-24 01:42 | PC.NURSE ---
HEIDY Worthy just spoke with on the phone to update her of imaging and lab findings. Pt concerned about hallucinations he has been having which he thinks are related to new medications. Pt has been advised to follow up with his neurologist about any medication changes.
[2021-09-24 01:54] VITALS: BP 131/85; PULSE 93; RESP 18; O2SAT 100
== END 2021-09-24 01:55 | disposition home or self-care (01) ==
PROVIDERS: Physician Assistant; Emergency Provider General Practice; PCP Family Medicine
DX: S01.111A Laceration without foreign body of right eyelid and periocular area, initial encounter (principal); R44.1 Visual hallucinations; J44.9 Chronic obstructive pulmonary disease, unspecified; I10 Essential (primary) hypertension; E11.9 Type 2 diabetes mellitus without complications; I25.10 Atherosclerotic heart disease of native coronary artery without angina pectoris; K21.9 Gastro-esophageal reflux disease without esophagitis; F17.210 Nicotine dependence, cigarettes, uncomplicated; Z86.73 Personal history of transient ischemic attack (TIA), and cerebral infarction without residual deficits; Z95.1 Presence of aortocoronary bypass graft; Z95.5 Presence of coronary angioplasty implant and graft; Z87.442 Personal history of urinary calculi; Z79.84 Long term (current) use of oral hypoglycemic drugs; Z79.82 Long term (current) use of aspirin; R90.82 White matter disease, unspecified; E27.9 Disorder of adrenal gland, unspecified; M47.816 Spondylosis without myelopathy or radiculopathy, lumbar region; M47.814 Spondylosis without myelopathy or radiculopathy, thoracic region; M47.812 Spondylosis without myelopathy or radiculopathy, cervical region; V13.4XXA Pedal cycle driver injured in collision with car, pick-up truck or van in traffic accident, initial encounter; Y93.55 Activity, bike riding
CPT/HCPCS: 36415; 70450; 71260; 72125; 72129; 72132; 73564; 74177; 80053; 80307; 81001; 83690; 85025; 85610; 85730; 96374; 99284; J0131; L0140; Q9967

== ENCOUNTER 2021-10-16 13:50 | Outpatient (RCR) | payer BC, SELFPAY ==
--- NOTE | 2021-10-16 16:47 | STOPEVAL ---
SPEECH THERAPY EVALUATION FOR COGNITION AND VISUAL SCANNING Thank you for referring Baldev Qiu to [facility].? The patient is scheduled to be seen for therapy? 1-2x/week for 4 weeks. Please review, sign, date and return this plan of care PARISH. I agree with and certify that the following plan of care is medically necessary. Referring Physician Date Attending Provider: Rylee Islas, Therapy Assessment Status Assessment Status Assessment Status Evaluation Outpatient Past Medical History Neurological History Hx Cerebrovascular Accident (CVA) Yes Cardiovascular History Hx Cardiac Catheterization Yes Hx Coronary Artery Disease Yes Hx Coronary Stent Yes Hx Hypertension Yes Respiratory History Hx Chronic Obstructive Pulmonary Disease Yes (COPD) Gastrointestinal History Hx Gastroesophageal Reflux Disease Yes Endocrine History Hx Diabetes Yes Evaluation Information Problem Subjective Information See Clinical Summary. Query Text:As Reported By Patient/ Family Pain Assessment Timing of Pain Assessment Timing of Pain Assessment Assessment Self Report Self Report Pain Level 0 Pain Score Pain Score 0: Self Report ST Clinical Summary Clinical Summary ST Clinical Summary COGNITIVE AND VISUAL SCANNING EVALUATION This patient reported a history of bladder tumor/ surgery, heart attack with stents placed, quadruple bypass and while he was recovering from these issues, began to have a small brain bleed in the back of his head that eventually resolved. He stated this occurred in June of 2021. Patient reports that in the past he has had visions that are improved but aggravating to him; he indicates he knows they are not real but also at least two remaining visions that frustrate him. He wondered if this could be addressed within the confines of a Speech Therapy setting as he finds the visions frustrating. None of this patient's history and backgroun could be confirmed with or family members
--- NOTE | 2021-11-12 16:17 | PCSTNOTE ---
Attending Provider: Rylee Islas, Patient:Baldev Qiu Date of :1960 Patient was evaluated initially for Speech Therapy on 10/16/21 and has not returned for any further treatments since 10/16/2021, therefore he will be discharged at this time. The goals have been not been addressed or met. He may return in the future for a re-evaluation and further Speech Therapy if indicated and if interested. Thank you for referring this patient to [facility]. Please review, sign, date and return this discharge summary PARISH. I have been updated about the patient's current status and I agree with discharge from the above service at this time. Referring Physician Date
== END 2021-11-13 11:06 | disposition home or self-care (01) ==
LOC: ANHST 13:50
PROVIDERS: PCP Family Medicine; Visit Provider Family Medicine
DX: I63.9 Cerebral infarction, unspecified (principal)
CPT/HCPCS: 92523

== ENCOUNTER 2021-11-01 12:10 | Emergency (ER) | payer BC, SELFPAY ==
[2021-11-01] VITALS (15 sets, daily range): BP systolic 88–114; BP diastolic 64–80; PULSE 77–89; RESP 14–24; TEMP 36.2; O2SAT 97–99
--- NOTE | ~2021-11-01 | CT_ITS ---
EXAMINATION: CT brain wo con DATE: 11/01/2021 12:37 INDICATION: Altered mental state. Slurred speech. TECHNIQUE: Computed tomography (CT) of the head was performed without intravenous contrast. The mA wa s adjusted according to patient size. Iterative reconstruction technique was employed. Exam dose: 60 5.33 mGy-cm total exam DLP. COMPARISON: 09/23/2021 CT head FINDINGS: Bilateral vertebral artery, basilar artery and carotid siphon internal carotid artery promi nent calcifications. There is nonspecific diminished attenuation cerebral white matter, likely due to chronic small vessel ischemic changes. Right occipital encephalomalacia consistent with recent infarct. No intracranial hemorrhage, midline shift or mass effect is noted. There is moderate cerebral volume loss. No subdural or epidural hematoma is detected. No fracture or bone destruction of the cranial vault. Included mastoid air cells and paranasal sinuses are normally developed and aerated. IMPRESSION: Recent right occipital cerebrovascular accident. Cerebral atherosclerosis and chronic small vessel ischemic changes of the cerebral white matter Reviewed, dictated and finalized at Location A. Reviewed, dictated and finalized at location A. IMPRESSION: Recent right occipital cerebrovascular accident. Cerebral atherosclerosis and chronic small vessel ischemic changes of the cereb ral white matter
--- NOTE | ~2021-11-01 | XR_ITS ---
XR chest 1V portable DATE: 11/01/2021 12:23 INDICATION: Altered mental status TECHNIQUE: Portable upright AP chest on 10/30/2021 at 1219 hours COMPARISON: 09/04/2021 AP and lateral chest FINDINGS: Status post sternotomy and coronary artery bypass graft surgery. Heart size appears within normal range. Mild infiltrate or atelectasis is suggested in the lower lung zones primarily. No pleural effusion. No pneumothorax. IMPRESSION: Mild infiltrate or atelectasis involving primarily the lower lung zones Reviewed, dictated and finalized at location A. IMPRESSION: Mild infiltrate or atelectasis involving primarily the lower lung z ones
--- NOTE | 2021-11-01 12:14 | ECG_ITS ---
Measurements Intervals [place] Rate: 74 P: 72 HI: 199 QRS: -42 QRSD: 108 T: 114 QT: 385 QTc: 429 Interpretive Statements SINUS RHYTHM LEFT AXIS DEVIATION MINIMAL Q WAVES- HIGH LATERAL LEADS ANTEROSEPTAL INFARCT, AGE INDETERMINATE ST-T WAVE ABNORMALITY IN HIGH LATERAL LEADS- CONSIDER ISCHEMIA ABNORMAL ECG Electronically Signed On 11-01-2021 13:34:20 CDT by Cole Roland D.O.
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
[2021-11-01 12:28] LABS: Basophils Absolute Auto 0.1 K/mm3 (0.0-0.1); Basophils Percent Auto 0.4 % (0.2-1.2); Eosinophils Absolute Auto 1.2 K/mm3 (0-0.3); Eosinophils Percent Auto 9.1 % (0-4.4); Hematocrit 34.1 % (42.0-52.0); Hemoglobin 10.8 g/dL (14.0-18.0); Immature Granulocyte Absolute 0.05 K/mm3 (0.00-0.031); Immature Granulocyte Percent A 0.4 % (0-0.5); Mean Corpuscular HGB Conc 31.7 g/dl (32-36); Mean Corpuscular Hemoglobin 30.9 pg (26-34); Mean Corpuscular Volume 97.7 fl (80-100); Mean Platelet Volume 9.9 fl (7.4-10.4); Monocytes Absolute Auto 1.1 K/mm3 (0.1-0.6); Monocytes Percent Auto 8.3 % (2.6-8.5); Neutrophils Absolute Auto 10.1 K/mm3 (1.3-6.7); Neutrophils Percent Auto 73.8 % (45.5-73.1); Platelet Count Result 271 k/mm3 (150-375); Red Blood Count 3.49 M/mm3 (4.6-6.20); Red Cell Distribution Width 15.5 % (11.5-14.5); White Blood Count 13.7 K/mm3 (4.5-10.0)
[2021-11-01 12:42] LABS: Alanine Aminotransferase 9 U/L (6-50); Albumin Level 3.8 g/dL (3.5-5.1); Alkaline Phosphatase 88 U/L (38-126); Anion Gap 7 mmol/L (8-16); Aspartate Amino Transferase 14 U/L (17-59); Bilirubin,Total 0.3 mg/dL (0.2-1.3); Blood Urea Nitrogen 10 mg/dL (9-20); Calcium 8.1 mg/dL (8.4-10.2); Carbon Dioxide 23 mmol/L (22-30); Chloride 109 mmol/L (98-107); Estimated CRCL calculation 106 ml/min; Estimated Glomerular Filt Rate > 60; Glucose 165 mg/dL (65-110); INR 1.1; Potassium 4.1 mmol/L (3.4-5.0); Prothrombin Time 13.7 Seconds (11.1-14.7); Sodium 139 mmol/L (137-145)
[2021-11-01 12:43] LABS: Partial Thromboplastin Time 42.1 SECONDS (22.3-36.8)
[2021-11-01 12:54] LABS: Troponin I < 0.012 ng/mL (0.000-0.034)
[2021-11-01 13:21] LABS: Appearance Urine Clear (Clear); Bilirubin Urine Negative (Negative); Blood Urine Negative (Negative); Color Urine Yellow (Yellow); Glucose Urine UA 3+ mg/dL (Negative); Ketones Urine Negative (Negative); Leukocyte Esterase Ur Negative LEU/UL (Negative); Nitrate Urine Negative (Negative); Protein Urine Negative (Negative); Urobilinogen Urine 0.2 mg/dL (<2.0); pH Urine 5.5 (5.0-9.0)
[2021-11-01 13:27] LABS: Amphetamine Screen Urine Negative (Negative); Barbiturate Screen Urine Negative (Negative); Benzodiazepines Screen Urine Negative (Negative); Cannabinoid Screen Urine Negative (Negative); Cocaine Screen Urine Negative (Negative); Methadone Screen Urine Negative (Negative); Opiate Screen Urine Negative (Negative); Phencyclidine Screen Urine Negative (Negative)
[2021-11-01 13:43] LABS: Mucus Urine Rare /lpf; RBC Urine 0-2 /hpf (0-2); Squamous Epithelial Cell Urine Rare /hpf (Few); WBC Urine 0-3 /hpf
[2021-11-01 13:51] LABS: Add Urine Microscopic? YES
[2021-11-01 13:55] LABS: SARS-CoV-2 RNA PCR Negative
[2021-11-01] MEDS: SODIUM CHLORIDE 0.9% IV 1,000 ML 999 ML IV CONT (14:31)
[2021-11-01] MEDS: levoFLOXacin 750 MG TABLET PO (14:31)
== END 2021-11-01 14:49 | disposition home or self-care (01) ==
PROVIDERS: Emergency Medicine; Emergency Provider Emergency Medicine; PCP Family Medicine
DX: T67.5XXA Heat exhaustion, unspecified, initial encounter (principal); J18.9 Pneumonia, unspecified organism; Z20.822 Contact with and (suspected) exposure to COVID-19; E78.5 Hyperlipidemia, unspecified; E11.9 Type 2 diabetes mellitus without complications; I69.912 Visuospatial deficit and spatial neglect following unspecified cerebrovascular disease; I69.928 Other speech and language deficits following unspecified cerebrovascular disease; R26.89 Other abnormalities of gait and mobility; R44.1 Visual hallucinations; J44.9 Chronic obstructive pulmonary disease, unspecified; I10 Essential (primary) hypertension; I25.10 Atherosclerotic heart disease of native coronary artery without angina pectoris; K21.9 Gastro-esophageal reflux disease without esophagitis; Z95.5 Presence of coronary angioplasty implant and graft; Z79.84 Long term (current) use of oral hypoglycemic drugs; Z79.82 Long term (current) use of aspirin; Z87.442 Personal history of urinary calculi; Z87.891 Personal history of nicotine dependence; I67.2 Cerebral atherosclerosis; R94.31 Abnormal electrocardiogram [ECG] [EKG]
CPT/HCPCS: 36415; 70450; 71045; 80053; 80307; 81001; 84484; 85025; 85610; 85730; 93005; 99284; A9270; C9803; J7030; U0003; U0005

== ENCOUNTER 2022-03-10 21:29 | Inpatient (IN) | payer BC, SELFPAY ==
--- NOTE | ~2022-03-10 | XR_ITS ---
EXAMINATION: XR foot LT min 3V DATE: 03/19/2022 10:13 INDICATION: Worsening wound at the left foot TECHNIQUE: Dorsoplantar, two oblique and lateral views of the left foot were obtained. COMPARISON: 03/10/2022 FINDINGS: Bone alignment is normal. No fracture. Again seen is osteolysis involving the head of the fourth midd le phalanx and significant portion of the third and fourth distal phalanges consistent with osteomyel itis. The cortical margin at the medial aspect of the head of the second metatarsal and base of the s econd proximal phalanx appears indistinct and there is some gas projecting over the second metatarsop halangeal joint space raising concern for septic arthritis and additional associated osteomyelitis. S evere osteoarthritis at the first metatarsophalangeal joint. Mild osteoarthritis at a few of the prof iled interphalangeal joints. IMPRESSION: 1. No significant change in osteolysis consistent with osteolysis involving the third distal phalanx and the fourth middle and distal phalanges. 2. Suggestion of early osteolysis and small amount of adjacent soft tissue gas at the medial aspect o f the head of the second metatarsal and base of the second proximal phalanx suspicious for new region of osteomyelitis. Reviewed, dictated and finalized at location A. IMPRESSION: 1. No significant change in osteolysis consistent with osteolysis involving the third distal phalanx and the fourth middle and distal phalanges. 2. Suggestion of early osteolysis and small amount of adjacent soft tissue gas at the medial aspect of the head of the second metatarsal and base of the secon d proximal phalanx suspicious for new region of osteomyelitis.
--- NOTE | ~2022-03-10 | XR_ITS ---
EXAM: XR foot LT 2V DATE: 03/10/2022 22:28 HISTORY: swelling . COMPARISON: None available. FINDINGS: Decreased mineralization. No fracture or dislocation. No lytic or blastic lesion. Severe d egenerative change at the first MTP. Moderate degenerative change at the tibiotalar joint. Osseous er osions involving the distal phalange of the third digit and the middle and distal phalanges of the fo urth digit. Soft tissue swelling over the dorsum of the foot and the third and fourth toes. Vascular calcifications. IMPRESSION: Osteomyelitis of the right third and fourth toes. Reviewed, dictated and finalized at location K.
--- NOTE | ~2022-03-10 | CT_ITS ---
EXAMINATION: CT brain wo con DATE: 03/10/2022 23:10 INDICATION: Confusion. TECHNIQUE: Computed tomography (CT) of the head was performed without intravenous contrast. The mA wa s adjusted according to patient size. Iterative reconstruction technique was employed. The dose-lengt h product was 605.33 mGy-cm. COMPARISON: Head CT 11/01/2021 FINDINGS: There are small old infarcts in the cerebellum bilaterally. There is an old infarct in righ t temporal occipital region in the expected distribution of right posterior cerebral artery. There ar e scattered areas of low attenuation in the cerebral white matter, which is within normal limits for the patient's age. There is no intracranial hemorrhage, acute infarction, or abnormal intracranial ma ss lesion. There is ex vacuo dilatation of occipital horn of right lateral ventricle. The orbits are normal. There is mild mucosal thickening in the ethmoid sinuses. The mastoid air cells are normal. IMPRESSION: 1. Old infarcts in the cerebellum and right temporal occipital region. Reviewed, dictated and finalized at location A.
--- NOTE | ~2022-03-10 | XR_ITS ---
EXAMINATION: XR surgery orthopedic DATE: 03/20/2022 8:35 CDT INDICATION: LEFT FOOT DEBRIDEMENT, OSTEOMYELITIS . TECHNIQUE: 3 fluoroscopic images of the left foot were obtained during left foot debridement for oste omyelitis, performed by the surgeon. I was not present in the operating room. Fluoroscopy exposure ti me was 5 seconds. Air Kerma 0.0444 mGy. DAP 0.6705 mGym2. COMPARISON: X-ray foot 03/19/2022 FINDINGS: Partial resection of the distal second metatarsal and proximal aspect of the second proximal phalange . Cross joint osteolysis in the fourth DIP. IMPRESSION: Fluoroscopic documentation of left foot debridement for osteomyelitis. Please refer to the operative note for complete procedural details. Reviewed, dictated and finalized at location K. IMPRESSION: Fluoroscopic documentation of left foot debridement for osteomyelitis. Please r efer to the operative note for complete procedural details.
--- NOTE | ~2022-03-10 | XR_ITS ---
EXAMINATION: XR surgery orthopedic DATE: 03/25/2022 07:38 INDICATION: Planned debridement versus amputation post recent osteotomies at both sides of the second metatarsophalangeal joint TECHNIQUE: A fluoroscopic images of the left forefoot were obtained during procedure performed by Dr. Flower. Radiologist was not present for the imaging or procedure. The amount of fluoroscopy time us ed during this procedure was 0.1 minutes. COMPARISON: 03/20/2022 and 03/19/2022 FINDINGS: Again seen are osteotomies of the head of the second metatarsal and base of the second proximal phala nx. There is been some additional debridement along both osteotomy margins. Interval placement of a p ercutaneous fixation pin which extends across the second distal, middle and proximal phalanges and th roughout the second metatarsal with distal tip at the proximal metaphyseal region. There is some resi dual postoperative gas at the widened second metatarsophalangeal joint space. Moderate osteoarthritis at the first metatarsophalangeal joint. There is also a chronically widened fourth distal interphala ngeal joint with change of likely osteotomies involving the head of the fourth middle phalanx and haley ority of the distal phalanx. No acute fracture. IMPRESSION: 1. Fluoroscopy utilized during debridement of second metatarsal and second proximal phalangeal osteot omies for treatment of second metatarsophalangeal septic arthritis and with placement of a percutaneo us fixation pin along the axis of the second ray. Reviewed, dictated and finalized at location A. IMPRESSION: 1. Fluoroscopy utilized during debridement of second metatarsal and second prox imal phalangeal osteotomies for treatment of second metatarsophalangeal septic arthritis and with placement of a percutaneous fixation pin along the axis of t he second ray.
--- NOTE | ~2022-03-10 | MR_ITS ---
EXAMINATION: MR foot LT wo/w con DATE: 03/11/2022 10:56 INDICATION: Left foot osteomyelitis. Wound at plantar aspect of second metatarsal. TECHNIQUE: Magnetic resonance imaging (MRI) of the left foot was performed without and with 18 mL Mul tiHance intravenous contrast. COMPARISON: Left foot radiographs 03/10/2022 FINDINGS: Bone alignment is normal. No fracture. There is severe osteoarthritis of first metatarsopha langeal joint and mild osteoarthritis of some of the interphalangeal joints. There is an ulcer planta r to second metatarsophalangeal joint. There is edema in head of second metatarsal and second proxima l phalanx characterized by increased T2-weighted signal intensity and normal T1-weighted signal inten sity, consistent with reactive osteitis. There are erosions of third distal phalanx with bone marrow edema. There are erosions of fourth middle and distal phalanges centered at the distal interphalangea l joint with bone marrow edema. There is mild fatty atrophy of the musculature. There is diffusely in creased T2-weighted signal intensity contrast enhancement involving the musculature, consistent with subacute on chronic elevation without or with myositis. There is nonenhancement of soft tissue around second metatarsophalangeal joint and in the plantar soft tissues of the second-fifth rays. There is diffuse edema of the foot with a dorsal predominance. IMPRESSION: 1. Osteomyelitis involving third distal phalanx and fourth middle and distal phalanges. 2. Reactive osteitis involving second proximal phalanx and head of second metatarsal. Early osteomyel itis cannot be excluded. 3. Widespread cellulitis of the forefoot with nonenhancement of much of the soft tissue at the forefo ot involving the second-fifth rays with a plantar predominance, consistent with necrosis. Reviewed, dictated and finalized at location A. IMPRESSION: 1. Osteomyelitis involving third distal phalanx and fourth middle and distal ph alanges. 2. Reactive osteitis involving second proximal phalanx and head of second metat arsal. Early osteomyelitis cannot be excluded. 3. Widespread cellulitis of the forefoot with nonenhancement of much of the sof t tissue at the forefoot involving the second-fifth rays with a plantar predomi nance, consistent with necrosis.
--- NOTE | ~2022-03-10 | XR_ITS ---
EXAMINATION: XR chest 1V portable INDICATION: PICC insertion TECHNIQUE: Portable AP chest at 1158 hours COMPARISON: 03/10/2022 FINDINGS: The right upper extremity PICC has been inserted which ends with its tip at the superior ca voatrial junction. Cardiomegaly is noted. There are patchy interstitial and airspace opacities. No pl eural effusion or pneumothorax. Median sternotomy wires and mediastinal surgical clips are seen, like ly from prior coronary artery bypass grafting. IMPRESSION: 1. Right upper extremity PICC ending with its tip at the superior cavoatrial junction. 2. Diffuse lung disease, consistent with atelectasis versus pneumonia versus pulmonary edema. 3. Cardiomegaly. Reviewed, dictated and finalized at location A. IMPRESSION: 1. Right upper extremity PICC ending with its tip at the superior cavoatrial ju nction. 2. Diffuse lung disease, consistent with atelectasis versus pneumonia versus pu lmonary edema. 3. Cardiomegaly.
--- NOTE | ~2022-03-10 | XR_ITS ---
EXAMINATION: XR chest 1V portable Exam Date/Time: 03/10/2022 22:18 CDT HISTORY: altered mental status Comparison: 11/01/2021, 09/04/2021, CT 09/23/2021. RESULT: Lines, tubes, and devices: Intact sternotomy wires. Surgical clips over the mediastinum and GE junct ion.. Lungs and pleura: Emphysematous and senescent change. Bibasilar atelectasis/scar. Cardiomediastinal silhouette: Stable. Other: No acute osseous or upper abdominal finding. IMPRESSION: No acute cardiopulmonary process. Reviewed, dictated and finalized at location K.
--- NOTE | 2022-03-10 21:34 | ECG_ITS ---
Measurements Intervals [place] Rate: 109 P: 47 ND: 198 QRS: -47 QRSD: 89 T: 88 QT: 309 QTc: 417 Interpretive Statements SINUS TACHYCARDIA LEFT ANTERIOR FASCICULAR BLOCK ANTEROSEPTAL INFARCT, AGE INDETERMINATE BORDERLINE ST-T WAVE ABNORMALITY- HIGH LATERAL LEADS BASELINE ARTIFACT- I, III, AVR, AVL ABNORMAL ECG COMPARED TO ECG 11/01/2021 12:18:08 SINUS TACHYCARDIA NOW PRESENT LEFT ANTERIOR FASCICULAR BLOCK NOW PRESENT Electronically Signed On 03-11-2022 6:53:01 CDT by Cole Roland D.O.
[2022-03-10 21:44] VITALS: BP 111/59; PULSE 111; RESP 18; TEMP 37.3; O2SAT 97
--- NOTE | 2022-03-10 21:56 | ED.AMS ---
HPI - Altered Mental Status General Chief Complaint: Altered Mental Status <Anoop Zhu III, DO - Last Filed: 03/15/22 15:40> Stated Complaint: altered, drowsy <Anoop Zhu III, DO - Last Filed: 03/15/22 15:40> Time Seen by Provider: 03/10/22 21:46 <Anoop Zhu III, DO - Last Filed: 03/15/22 15:40> History of Present Illness HPI narrative: pt presents with altered mental status per family who said he has been making bizarre statements and not making sense. Family is not here at the moment. Pt says he is here because he is dizzy and has difficulty walking because he is unsteady. Pt denies BARRON or blurred vision or weakness. Pt denies pain of any type. <Anoop Zhu III, DO - Last Filed: 03/15/22 15:40> Related Data Home Medications: Home Medications Medication Instructions Recorded Confirmed albuterol sulfate 90 mcg/actuation 90 mcg inhalation QID PRN 09/05/21 03/11/22 aerosol inhaler (ProAir HFA) Shortness Of Breath aspirin 81 mg tablet,delayed 81 mg PO DAILY 09/05/21 03/11/22 release (Adult Low Dose Aspirin) atorvastatin 40 mg tablet (Lipitor) 40 mg PO DAILY 09/05/21 03/11/22 carvedilol 3.125 mg tablet (Coreg) 3.125 mg PO Q12H 09/05/21 03/11/22 empagliflozin 10 mg tablet 10 mg PO DAILY 09/05/21 03/11/22 (Jardiance) fenofibrate 160 mg tablet 160 mg PO DAILY 09/05/21 03/11/22 lisinopril 5 mg tablet (Zestril) 5 mg PO DAILY 09/05/21 03/11/22 acetaminophen 300 mg-codeine 30 mg 1 tablet PO Q12H PRN Pain 03/11/22 03/11/22 tablet doxycycline monohydrate 100 mg 100 mg Q12H 03/11/22 03/11/22 capsule insulin glargine 100 unit/mL (3 45 unit subcut HS 03/11/22 03/11/22 mL) subcutaneous pen (Lantus Solostar U-100 Insulin) olanzapine 20 mg tablet 10 mg PO Q12H 03/11/22 03/11/22 <Anoop Zhu III, DO - Last Filed: 03/15/22 15:40> Allergies/Adverse Reactions: Allergies Allergy/AdvReac Type Severity Reaction Status Date / Time metoclopramide AdvReac Mild Vomiting Verified 03/10/22 21:31 <Anoop Zhu III, DO - Last Filed: 03/15/22 15:40> Review of Systems Review of Systems: All systems reviewed & are unremarkable except as noted in HPI and below <Anoop Zhu III, DO - Last Filed: 03/15/22 15:40> [facility] Past Medical History Medical History: Medical History Cerebrovascular accident (06/2021) It sounds as though he had an ischemic stroke (symptoms include vertigo and visual changes) with hemorrhagic conversion. Chronic anemia Chronic obstructive pulmonary disease Coronary artery disease Status post bifurcation stents to the LAD and diagonal in 2006, stent to the LAD for in-stent restenoses in 2009, and CABG in April 2021 at [facility]. Diabetic foot ulcer Gastroesophageal reflux disease Hypertension Kidney stones Seizure disorder Type 2 diabetes mellitus <Anoop Zhu III, DO - Last Filed: 03/15/22 15:40> Surgical History Surgical History: Surgical History History of coronary artery bypass graft (04/2021) Done at [facility]. History of inguinal hernia repair History of myringoplasty History of percutaneous coronary intervention Bifurcation stents to LAD and diagonal in 2006. Stent to the LAD in 2009. <Anoop Zhu III, DO - Last Filed: 03/15/22 15:40> Family History Family History: Family History Mother Family history of diabetes mellitus in first degree relative Other Diabetes mellitus Hypertension <Anoop Zhu III, DO - Last Filed: 03/15/22 15:40> Social History Social History: Social History Social History: The patient lives with his and 2 teenage sons in [place]. 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 He smoked a
[2022-03-10 22:06] VITALS: BP 125/77; PULSE 111; RESP 20; TEMP 38.8; O2SAT 95
[2022-03-10 22:17] LABS: Hematocrit 31.2 % (42.0-52.0); Hemoglobin 10.2 g/dL (14.0-18.0); Mean Corpuscular HGB Conc 32.7 g/dl (32-36); Mean Corpuscular Volume 97.8 fl (80-100); Mean Platelet Volume 10.9 fl (7.4-10.4); Platelet Count Result 332 k/mm3 (150-375); Red Blood Count 3.19 M/mm3 (4.6-6.20); Red Cell Distribution Width 13.4 % (11.5-14.5); White Blood Count 21.2 K/mm3 (4.5-10.0)
[2022-03-10 22:26] LABS: Alanine Aminotransferase 31 U/L (6-50); Albumin Level 4.3 g/dL (3.5-5.1); Alkaline Phosphatase 87 U/L (38-126); Anion Gap 16 mmol/L (8-16); Aspartate Amino Transferase 27 U/L (17-59); Bilirubin,Total 0.5 mg/dL (0.2-1.3); Blood Urea Nitrogen 11 mg/dL (9-20); Calcium 8.7 mg/dL (8.4-10.2); Carbon Dioxide 21 mmol/L (22-30); Chloride 101 mmol/L (98-107); Estimated CRCL calculation 70 ml/min; Estimated Glomerular Filt Rate > 60; Glucose 226 mg/dL (65-110); Potassium 3.4 mmol/L (3.4-5.0); Sodium 138 mmol/L (137-145)
[2022-03-10 22:27] LABS: Lactic Acid Reflex 1.3 mmol/L (0.7-2.0)
[2022-03-10 22:38] LABS: INR 1.2
[2022-03-10 22:39] LABS: Partial Thromboplastin Time 56.5 SECONDS (22.3-36.8)
[2022-03-10 22:47] LABS: Band Neutrophils Percent 4 % (0-6); Eosinophils Absolute Manual 0.84 K/mm3 (0.02-0.5); Eosinophils Percent Manual 4 % (0-4); Lymphocytes Absolute Manual 0.84 K/mm3 (1.1-4.5); Monocytes Absolute Manual 0.63 K/mm3 (0.1-0.90); Monocytes Percent Manual 3 % (3-9); Neutrophils Absolute Manual 18.86 K/mm3 (1.3-6.7); Neutrophils Percent Manual 85 % (46-73); Total Cells Counted 100
[2022-03-10 22:48] LABS: Anisocytosis 1+ (NORMAL); Macrocytosis 1+ (NORMAL); Microcytosis 1+ (NORMAL); Platelet Clumps Present; Poikilocytosis 2+ (NORMAL); Spherocytes 1+ (NORMAL)
[2022-03-10 22:49] LABS: Hypochromasia 1+ (NORMAL); Schistocytes None Seen (NORMAL)
[2022-03-10] MEDS: SODIUM CHLORIDE 0.9% IV 1,000 ML 999 ML IV CONT ×2 (23:40→23:51)
--- NOTE | 2022-03-10 23:52 | PC.NURSE ---
Cefepime not scanning RN and Chantel RN verified medicaiton and dosage.
[2022-03-11] VITALS (20 sets, daily range): BP systolic 105–128; BP diastolic 61–67; PULSE 78–90; RESP 16–30; TEMP 36.7–37.6; O2SAT 90–95; BMI 27.1
--- NOTE | 2022-03-11 00:10 | PC.NURSE ---
Pt unable to provide urine sample after 2x attempts. This RN and Siobhan RN tried 3 separate straight catheter attempts without success. [place] as if was hitting a wall half way during insertion with no urine return. 15 malagasy 15 malagasy coude 10 malagasy
--- NOTE | 2022-03-11 00:30 | PM.IMHP ---
H&P: HPI History of Present Illness Date/Time: 03/11/22 00:30 Chief Complaint: Confusion, fever. Narrative: This is a 61-year-old male with type 2 diabetes, hypertension, dyslipidemia, coronary artery disease, and history of ischemic stroke in June 2021 with hemorrhagic conversion who presented to the ED from home for evaluation of confusion and fever. He has a wound on the plantar aspect of his left foot which is being tended to by a glazier supervisor in [place]. A couple of days ago he was prescribed doxycycline after the wound was debrided but unfortunately since that time, the area has become increasingly red, swollen, and painful. His reports that he seems to be increasingly confused (making unusual statements) and he has been febrile with a temperature up to 102?. Left foot x-ray shoes osteomyelitis of the right third and fourth toes and he is being admitted in this setting for IV antibiotics. At the time of my evaluation, he complains of only mild pain in the foot as he has neuropathy. Review of Systems Review of Systems: Twelve systems were reviewed. He has not had any falls or head trauma. No cold or flu symptoms. No sick contacts. He denies chest pain shortness a breath. No nausea, vomiting, diarrhea, or dysuria. No blurry vision. Glucose is historically poorly controlled. Except as documented, all other systems were reviewed and are negative. [facility] Past Medical History Medical History (Updated 03/11/22 @ 02:39 by Rosita Lyons PA-C) Cerebrovascular accident (06/2021) It sounds as though he had an ischemic stroke (symptoms include vertigo and visual changes) with hemorrhagic conversion. Chronic anemia Chronic obstructive pulmonary disease Coronary artery disease Status post bifurcation stents to the LAD and diagonal in 2006, stent to the LAD for in-stent restenoses in 2009, and CABG in April 2021 at [facility]. Gastroesophageal reflux disease Hypertension Kidney stones Seizure disorder Type 2 diabetes mellitus Surgical History Surgical History History of coronary artery bypass graft (04/2021) Done at [facility]. History of inguinal hernia repair History of myringoplasty History of percutaneous coronary intervention Bifurcation stents to LAD and diagonal in 2006. Stent to the LAD in 2009. Family History Family History Mother Family history of diabetes mellitus in first degree relative Other Diabetes mellitus Hypertension Social History Social History (Updated 03/11/22 @ 02:37 by Rosita Lyons PA-C) Social History: The patient lives with his and 2 teenage sons in [place]. 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 He smoked about a pack a day for nearly 45 years and he quit at the time of his bypass in April 2021. He was a heavier drinker in his younger years. No illicit substance use. Surrogate medical decision maker: Shahrzad Qiu, . Code status: Full code. Spiritual care concerns: No Meds Home Medications and Allergies Home Medications Medication Instructions Recorded Confirmed Type albuterol sulfate 90 mcg/actuation 90 mcg inhalation QID 09/05/21 09/18/21 History aerosol inhaler (ProAir HFA) aspirin 81 mg tablet,delayed 81 mg PO DAILY 09/05/21 09/18/21 History release (Adult Low Dose Aspirin) atorvastatin 40 mg tablet (Lipitor) 40 mg PO DAILY 09/05/21 09/18/21 History carvedilol 3.125 mg tablet (Coreg) 3.125 mg PO BID 09/05/21 09/18/21 History divalproex 500 mg tablet,extended 500 mg PO DAILY 09/05/21 09/18/21 History release 24 hr (Depakote ER) empagliflozin 10 mg tablet 10 mg PO DAILY 09/05/21 09/18/21 History (Jardiance) fenofibrate 160 mg tablet 160 mg PO DAILY 09/05/21 09/18/21 History lisinopril 5 mg tablet (Zestril) 5 mg PO DAILY 09/05/21 09/18/21 History carbamazepine 200 mg t
[2022-03-11 00:57] LABS: SARS-CoV-2 RNA PCR Negative
--- NOTE | 2022-03-11 01:27 | PC.NURSE ---
pt given sandwich, chips, and diet farzaneh mist
--- NOTE | 2022-03-11 01:34 | PC.NURSE ---
pt report called to [facility] POE room 254
[2022-03-11 01:47] LABS: Valproic Acid < 10.0 ug/mL (50-120)
[2022-03-11] MEDS: SODIUM CHLORIDE 0.9% IV 1,000 ML 125 ML IV CONT (02:18)
[2022-03-11 03:40] LABS: Hemoglobin A1C 6.9 % (<5.7)
[2022-03-11] MEDS: metroNIDAZOLE 500 MG/ISO 100ML 500 MG/100 ML BAG 100 MG IVPB ×3 (03:41→22:07)
[2022-03-11 04:42] LABS: CRP 34.6 mg/dL (<1.0)
[2022-03-11 05:41] LABS: Estimated CRCL calculation 76 ml/min; Estimated Glomerular Filt Rate > 60
[2022-03-11 07:38] LABS: Basophils Absolute Auto 0.1 K/mm3 (0.0-0.1); Basophils Percent Auto 0.3 % (0.2-1.2); Eosinophils Absolute Auto 0.1 K/mm3 (0-0.3); Eosinophils Percent Auto 0.4 % (0-4.4); Hematocrit 28.9 % (42.0-52.0); Hemoglobin 9.3 g/dL (14.0-18.0); Immature Granulocyte Percent A 0.5 % (0-0.5); Lymphocytes Absolute Auto 1.21 K/mm3 (0.9-3.2); Lymphocytes Percent Auto 6.4 % (18.3-44.2); Mean Corpuscular HGB Conc 32.2 g/dl (32-36); Mean Corpuscular Hemoglobin 31.8 pg (26-34); Mean Platelet Volume 11.5 fl (7.4-10.4); Monocytes Absolute Auto 2.5 K/mm3 (0.1-0.6); Monocytes Percent Auto 13.2 % (2.6-8.5); Neutrophils Absolute Auto 14.9 K/mm3 (1.3-6.7); Neutrophils Percent Auto 79.2 % (45.5-73.1); Platelet Count Result 311 k/mm3 (150-375); Red Blood Count 2.92 M/mm3 (4.6-6.20); Red Cell Distribution Width 13.6 % (11.5-14.5); White Blood Count 18.8 K/mm3 (4.5-10.0)
[2022-03-11 07:47] LABS: Alanine Aminotransferase 31 U/L (6-50); Albumin Level 3.5 g/dL (3.5-5.1); Alkaline Phosphatase 89 U/L (38-126); Anion Gap 12 mmol/L (8-16); Aspartate Amino Transferase 37 U/L (17-59); Bilirubin,Total 0.6 mg/dL (0.2-1.3); Blood Urea Nitrogen 11 mg/dL (9-20); Calcium 8.3 mg/dL (8.4-10.2); Carbon Dioxide 19 mmol/L (22-30); Chloride 109 mmol/L (98-107); Estimated CRCL calculation 76 ml/min; Estimated Glomerular Filt Rate > 60; Glucose 144 mg/dL (65-110); Potassium 3.2 mmol/L (3.4-5.0); Sodium 140 mmol/L (137-145)
[2022-03-11 07:49] LABS: Immature Reticulocyte Fraction 12.6 % (3.0-15.9); Reticulocyte Hemoglobin Conten 27.7 pg (28.2-35.7); Reticulocyte Percent 1.18 % (0.7-4.3); Reticulocytes Absolute 0.03 B/L (32.2-175.7)
[2022-03-11 07:56] LABS: Iron 11 ug/dL (49-181)
[2022-03-11 08:05] LABS: Percent Iron Saturation 5 % (20-50); Transferrin 138 mg/dL (206-381)
--- NOTE | 2022-03-11 08:15 | PM.IMPN ---
Progress Note: A&P Assessment and Plan (1) Severe sepsis: Code(s): A41.9 - Sepsis, unspecified organism; R65.20 - Severe sepsis without septic shock Status: Acute Assessment and Plan: Meets sepsis criteria with tachycardia, tachypnea, fever, leukocytosis, mental changes Source of infection is his left foot wound Lactic acid 1.3 Blood cultures pending Wound culture pending Continue vanc, cefepime, and Flagyl at this time White blood cells 21.2 upon arrival, currently 18.8 IV fluids 2L bolus and continuous IV fluid Trend labs Adjust therapy as indicated (2) Cellulitis of foot, left: Code(s): L03.116 - Cellulitis of left lower limb Status: Acute Assessment and Plan: See above (3) Acute osteomyelitis of foot: Code(s): M86.179 - Other acute osteomyelitis, unspecified ankle and foot Status: Acute Assessment and Plan: X-rays left foot shows osteomyelitis of the left 3rd and 4th toes Ortho consulted thank you for your help Will probably need to be on termite control representative antibiotics Wound care consult Continue recommended dressing changes ID Pharm Consult Wound culture pending adjust antibiotics to sensitivities MRI osteomyelitis of the third distal phalanx, and fourth middle distal phalanges, osteitis involving second proximal phalanx an head of second metatarsal, wide spread cellulitis of the forefoot with nonenhancement of much of the soft tissue Continue cefepime and vaco (4) Chronic anemia: Code(s): D64.9 - Anemia, unspecified Status: Acute Assessment and Plan: Current H/H 9.3/28.9 Anemia labs Supplement as indicated trend H/H Transfuse as as indicated (5) Coronary artery disease: Code(s): I25.10 - Atherosclerotic heart disease of [place] coronary artery without angina pectoris Status: Acute Assessment and Plan: No active chest pain Continue Jardiance, aspirin, and carvedilol Telemonitor for now EKG No significant changes (6) Hypertension: Code(s): I10 - Essential (primary) hypertension Status: Acute Assessment and Plan: Current BP 128/67 Continue home carvedilol and lisinopril Trend BP adjust therapy as indicated (7) Type 2 diabetes mellitus: Code(s): E11.9 - Type 2 diabetes mellitus without complications Status: Acute Assessment and Plan: Current glucose 144 A1c 6.9 Continue home Jardiance, and lantus Trend glucose Hypoglycemia protocol Accu-cheks AC/HS ISS Adjust as indicated (8) Seizure disorder: Code(s): G40.909 - Epilepsy, unspecified, not intractable, without status epilepticus Status: Acute Assessment and Plan: Continue home medications Seems to be ok (9) Chronic obstructive pulmonary disease: Code(s): J44.9 - Chronic obstructive pulmonary disease, unspecified Status: Acute Assessment and Plan: Not in acute exacerbation Continue home medications Stable (10) Acute metabolic encephalopathy: Code(s): G93.41 - Metabolic encephalopathy Status: Acute Assessment and Plan: Head CT does not show any acute findings, does show some old infarcts Probably related to infection Has a foot wound WBC elevated at 21.1 upon admission, current 18.8 continue to trend mental status (11) Diabetic foot ulcer: Qualifiers: Diabetes mellitus type: type 2 Diabetic foot ulcer location: toe Laterality: left Non-pressure ulcer stage: with muscle involvement without evidence of necrosis Qualified Code(s): E11.621 - Type 2 diabetes mellitus with foot ulcer; L97.525 - Non-pressure chronic ulcer of other part of left foot with muscle involvement without evidence of necrosis Code(s): E11.621 - Type 2 diabetes mellitus with foot ulcer; L97.509 - Non-pressure chronic u
--- NOTE | 2022-03-11 08:15 | P.PNIM_ITS ---
Progress Note: A&P Assessment and Plan (1) Severe sepsis: Code(s): A41.9 - Sepsis, unspecified organism; R65.20 - Severe sepsis without septic shock Status: Acute Assessment and Plan: * Meets sepsis criteria with tachycardia, tachypnea, fever, leukocytosis, mental changes * Source of infection is his left foot wound * Lactic acid 1.3 * Blood cultures pending * Wound culture pending * Continue vanc, cefepime, and Flagyl at this time * White blood cells 21.2 upon arrival, currently 18.8 * IV fluids 2L bolus and continuous IV fluid * Trend labs * Adjust therapy as indicated (2) Cellulitis of foot, left: Code(s): L03.116 - Cellulitis of left lower limb Status: Acute Assessment and Plan: * See above (3) Acute osteomyelitis of foot: Code(s): M86.179 - Other acute osteomyelitis, unspecified ankle and foot Status: Acute Assessment and Plan: * X-rays left foot shows osteomyelitis of the left 3rd and 4th toes * Ortho consulted thank you for your help * Will probably need to be on terminal makeup operator antibiotics * Wound care consult * Continue recommended dressing changes * ID Pharm Consult * Wound culture pending * adjust antibiotics to sensitivities * MRI osteomyelitis of the third distal phalanx, and fourth middle distal phalanges, osteitis involving second proximal phalanx an head of second metatarsal, wide spread cellulitis of the forefoot with nonenhancement of much of the soft tissue * Continue cefepime and vaco (4) Chronic anemia: Code(s): D64.9 - Anemia, unspecified Status: Acute Assessment and Plan: * Current H/H 9.3/28.9 * Anemia labs * Supplement as indicated * trend H/H * Transfuse as as indicated (5) Coronary artery disease: Code(s): I25.10 - Atherosclerotic heart disease of [place] coronary artery without angina pectoris Status: Acute Assessment and Plan: * No active chest pain * Continue Jardiance, aspirin, and carvedilol * Telemonitor for now * EKG No significant changes (6) Hypertension: Code(s): I10 - Essential (primary) hypertension Status: Acute Assessment and Plan: * Current BP 128/67 * Continue home carvedilol and lisinopril * Trend BP * adjust therapy as indicated (7) Type 2 diabetes mellitus: Code(s): E11.9 - Type 2 diabetes mellitus without complications Status: Acute Assessment and Plan: * Current glucose 144 * A1c 6.9 * Continue home Jardiance, and lantus * Trend glucose * Hypoglycemia protocol * Accu-cheks AC/HS * ISS * Adjust as indicated (8) Seizure disorder: Code(s): G40.909 - Epilepsy, unspecified, not intractable, without status epilepticus Status: Acute Assessment and Plan: * Continue home medications * Seems to be ok (9) Chronic obstructive pulmonary disease: Code(s): J44.9 - Chronic obstructive pulmonary disease, unspecified Status: Acute Assessment and Plan: * Not in acute exacerbation * Continue home medications * Stable (10) Acute metabolic encephalopathy: Code(s): G93.41 - Metabolic encephalopathy Status: Acute Assessment and Plan: * Head CT does not show any acute findings, does show some old i
[2022-03-11 08:39] LABS: Appearance Urine Slightly Cloudy (Clear); Bilirubin Urine Negative (Negative); Blood Urine Negative (Negative); Color Urine Yellow (Yellow); Glucose Urine UA 3+ mg/dL (Negative); Ketones Urine Negative (Negative); Leukocyte Esterase Ur Negative LEU/UL (Negative); Nitrate Urine Negative (Negative); Protein Urine Negative (Negative); Specific Grav Ur 1.015 (1.001-1.035); Urobilinogen Urine 0.2 mg/dL (<2.0); pH Urine 5.5 (5.0-9.0)
[2022-03-11] MEDS: POTASSIUM CHLORIDE 20 MEQ TABLET 40 MEQ PO (08:43)
[2022-03-11] MEDS: ENOXAPARIN 40 MG/0.4 ML SYRINGE SUB-Q (08:44)
[2022-03-11 08:48] LABS: Add Urine Microscopic? YES; Mucus Urine Rare /lpf; RBC Urine 0-2 /hpf (0-2)
[2022-03-11 09:03] LABS: Folic Acid 6.6 ng/mL (2.76->20)
[2022-03-11 09:19] LABS: Glucose Point of Care 121 mg/dl (65-105)
--- NOTE | 2022-03-11 09:19 | PM.CNOR ---
Assessment and Plan Assessment and plan (1) Diabetic foot ulcer: Qualifiers: Diabetic foot ulcer location: toe Diabetes mellitus type: type 2 Laterality: left Non-pressure ulcer stage: with muscle involvement without evidence of necrosis Qualified Code(s): E11.621 - Type 2 diabetes mellitus with foot ulcer; L97.525 - Non-pressure chronic ulcer of other part of left foot with muscle involvement without evidence of necrosis Code(s): E11.621 - Type 2 diabetes mellitus with foot ulcer; L97.509 - Non-pressure chronic ulcer of other part of unspecified foot with unspecified severity Status: Acute Assessment and Plan: Orthopedic consult for this 61-year-old male with an acute onset worsening left diabetic foot ulcer. Patient is followed by a political researcher in [place]. He has a wound on the plantar aspect of the left foot which measures 1.0 x 0.5 x 1.5 cm with tunneling at the 12 o'clock position towards the 2nd metatarsal to 2 cm. Unable to palpate bone. Hallux with significant swelling and erythema. Small dorsal ulcer over the MTP joint which measures 0.5 x 0.2 x 0.2 cm. Malodor noted. Blistering between the 1st and 2nd ray noted. Recommended MRI of the left foot at this time for further evaluation. Patient may also require ABIs given inability to palpate pedal pulses bilaterally, pulses Doppler at the bedside. In the interim, continue IV antibiotics under the direction of the medicine team. Covered dry with gauze and Kerlix. We will determine further plan of care, conservative vs. operative, pending MRI results and evaluation by Dr. Flower. (2) Cellulitis of foot, left: Code(s): L03.116 - Cellulitis of left lower limb Status: Acute Assessment and Plan: IV antibiotics initiated. Wound cultures pending. (3) Severe sepsis: Code(s): A41.9 - Sepsis, unspecified organism; R65.20 - Severe sepsis without septic shock Status: Acute Assessment and Plan: IV antibiotics initiated. Wound and blood cultures pending. (4) Acute osteomyelitis of foot: Code(s): M86.179 - Other acute osteomyelitis, unspecified ankle and foot Status: Acute Assessment and Plan: Radiographs the left foot revealed osseous erosions at the distal phalange of the 3rd and middle and distal phalanges of the 4th digit. No open wounds at these sites. Concern for osteomyelitis of these toes; however no open wounds or signs of infection arising from these areas. Yellow thickened toenails noted. (5) Acute metabolic encephalopathy: Code(s): G93.41 - Metabolic encephalopathy Status: Acute History of Present Illness HPI Consult date: 03/11/22 Chief complaint: Severe Sepsis,Left Foot Cellulitis,Osteomyelitis Narrative: 61-year-old male admitted through the emergency room for left foot osteomyelitis and cellulitis. The patient is a mildly confused today in a poor historian in regards to his foot. History of ulcer obtained from the medical chart as no family is at bedside currently. Per the patient's , the patient was seen by a political researcher in [place]. He had a wound debrided with started on oral antibiotics. His foot became increasingly red and warm and the patient became confused at home. These symptoms prompted his arrival to the emergency room for further evaluation. Radiographs in the emergency room revealed osteomyelitis of the 3rd and 4th toes. Orthopedic consult requested. Review of Systems Review of Systems: All systems reviewed & are unremarkable except as noted in HPI and below ROS unobtainable: Yes unobtainable due to mental status ( Patient mildly confused today, denied recent fevers previously reported ) [facility] Past Medical History Medical History (Updated 03/11/22 @ 10:05 by MARIPOSA Payton) Cerebrovascular accident (06/2021) It sounds as though he had an ischemic stroke (symptoms include vertigo and visual changes) with hemorrhagic conversion. Chron
[2022-03-11] MEDS: EMPAGLIFLOZIN 10 MG TABLET PO (09:32)
[2022-03-11] MEDS: OLANZapine 5 MG TABLET 10 MG PO ×2 (09:32→20:32)
[2022-03-11] MEDS: lisinopriL 5 MG TABLET PO (09:32)
[2022-03-11] MEDS: ATORVASTATIN 40 MG TABLET PO (09:32)
[2022-03-11] MEDS: carvediloL 3.125 MG TABLET PO ×2 (09:33→20:32)
[2022-03-11] MEDS: ASPIRIN 81 MG ENTERIC TABLET PO (09:33)
[2022-03-11] MEDS: FENOFIBRATE 160 MG TABLET PO (09:33)
[2022-03-11 12:24] LABS: Glucose Point of Care 123 mg/dl (65-105)
--- NOTE | 2022-03-11 14:05 | WPDURCON ---
Assessment and Plan Assessment and plan (1) BPH (benign prostatic hyperplasia): Code(s): N40.0 - Benign prostatic hyperplasia without lower urinary tract symptoms Status: Acute Assessment and Plan: Start Finasteride and Flomax. (2) Retention of urine: Code(s): R33.9 - Retention of urine, unspecified Status: Acute (3) Difficult Osorio catheter placement: Code(s): T83.9XXA - Unspecified complication of genitourinary prosthetic device, implant and graft, initial encounter Status: Acute Assessment and Plan: I attempted to place both a 16fr and 18fr coude catheter and was unable to pass it. The patient experienced moderate pain and refused to let me continue without sedation. I have discussed this with Dr. Hinojosa and he agrees to do a Cystoscopy with urethral dilation and catheter placement in the OR under sedation. Keep NPO. Obtain Consent: Cystoscopy, possible urethral dilation and difficult catheter insertion. Urology Consult Note HPI Date Seen: 03/11/22 Time Seen: 12:30 Requesting Physician: Brice Byrne MD Primary Care Provider: Rylee Islas, Consult Narrative Reason for consult: Retention/Difficult Catheter insertion Narrative: Baldev Qiu is a 61 year old male who presented to the ER with symptoms of dizziness and confusion and was found to be septic d/t osteomyelitis in his foot. Upon admission in the ER his bladder scan was 1200cc, but the ER was unable to straight catheterize him. He was then transferred to the floor where he was able to urinate >400cc independently this morning, however his bladder scan was still 600cc. The nursing staff and hospitalist have all tried and failed attempts at placing an 18fr coude catheter. The patient is uncomfortable and states he is having urgency, incontinence, frequency and pelvic pain as well as dysuria. He states he has never been diagnosed with BPH, but was seen in 06/09 at [facility] for a bladder tumor removal that was found secondary to gross hematuria. He is unsure of the Urologist he see's there. He has never had retention or required a catheter in the past. WBC is 18.8 and creatinine is 1.00. No abdominal scans have been done this admission. Review of Systems Cardiovascular: Cardiovascular: Denies chest pain Respiratory: Respiratory: Reports no additional respiratory complaints Gastrointestinal: Gastrointestinal: Reports abdominal pain, Denies nausea and Denies vomiting Genitourinary: Genitourinary: Denies hematuria, Reports dysuria, Denies flank pain, Reports urinary frequency, Reports urinary hesitancy, Reports urinary incontinence and Reports urinary urgency [facility] Past Medical History Medical History Cerebrovascular accident (06/2021) It sounds as though he had an ischemic stroke (symptoms include vertigo and visual changes) with hemorrhagic conversion. Chronic anemia Chronic obstructive pulmonary disease Coronary artery disease Status post bifurcation stents to the LAD and diagonal in 2006, stent to the LAD for in-stent restenoses in 2009, and CABG in April 2021 at [facility]. Diabetic foot ulcer Gastroesophageal reflux disease Hypertension Kidney stones Seizure disorder Type 2 diabetes mellitus Surgical History Surgical History History of coronary artery bypass graft (04/2021) Done at [facility]. History of inguinal hernia repair History of myringoplasty History of percutaneous coronary intervention Bifurcation stents to LAD and diagonal in 2006. Stent to the LAD in 2009. Family History Family History Mother Family history of diabetes mellitus in first degree relative Other Diabetes mellitus Hypertension Social History Social History Social
--- NOTE | 2022-03-11 14:28 | WPDHPUPDATE1 ---
History and Physical Update Update Date/Time: 03/11/22 14:28 Chart reviewed, discussed with pt. and Brandi Buitrago NP. Agree with plans for cysto/catheterization under sedation. History and Physical has been reviewed, including an updated exam of the patient. There are NO changes in the patient's condition. Risks, benefits, and alternatives have been discussed and questions answered. Patient agrees to proceed with procedure.
[2022-03-11] MEDS: LACTATED RINGERS 1,000 ML 30 ML IV CONT (15:00)
[2022-03-11 15:06] LABS: Glucose Point of Care 114 mg/dl (65-105)
--- NOTE | 2022-03-11 15:06 | WPDANESEPPF ---
Anes - Initial Pre Proc Eval Procedure: Operation Date: 03/11/22 14:30 Proposed Procedures p Cystoscopy, Urethral Dilatation, Osorio Catheter Placement - Omero Hinojosa MD Date/Time: 03/11/22 15:06 Surgeon: Brice Byrne MD Pre Op Diagnosis: Severe Sepsis,Left Foot Cellulitis,Osteomyelitis Patient Data Age: 61 Gender: M Height: 1.83 m Weight: 89.8 kg Last Vital Signs Temp 37.1 C 03/11/22 14:11 Pulse 81 03/11/22 14:11 Resp 18 03/11/22 14:11 BP 109/63 03/11/22 14:11 Pulse Ox 95 03/11/22 14:11 O2 Del Method Room Air 03/11/22 08:52 Allergies Allergy/AdvReac Type Severity Reaction Status Date / Time metoclopramide AdvReac Mild Vomiting Verified 03/10/22 21:31 Home Medications Medication Instructions Recorded Confirmed Type albuterol sulfate 90 mcg/actuation 90 mcg inhalation QID PRN 09/05/21 03/11/22 History aerosol inhaler (ProAir HFA) Shortness Of Breath aspirin 81 mg tablet,delayed 81 mg PO DAILY 09/05/21 03/11/22 History release (Adult Low Dose Aspirin) atorvastatin 40 mg tablet (Lipitor) 40 mg PO DAILY 09/05/21 03/11/22 History carvedilol 3.125 mg tablet (Coreg) 3.125 mg PO Q12H 09/05/21 03/11/22 History empagliflozin 10 mg tablet 10 mg PO DAILY 09/05/21 03/11/22 History (Jardiance) fenofibrate 160 mg tablet 160 mg PO DAILY 09/05/21 03/11/22 History lisinopril 5 mg tablet (Zestril) 5 mg PO DAILY 09/05/21 03/11/22 History carbamazepine 200 mg tablet 200 mg PO Q8HR #90 tabs 09/07/21 03/11/22 Rx acetaminophen 300 mg-codeine 30 mg 1 tablet PO Q12H PRN Pain 03/11/22 03/11/22 History tablet doxycycline monohydrate 100 mg 100 mg Q12H 03/11/22 03/11/22 History capsule insulin glargine 100 unit/mL (3 45 unit subcut HS 03/11/22 03/11/22 History mL) subcutaneous pen (Lantus Solostar U-100 Insulin) olanzapine 20 mg tablet 10 mg PO Q12H 03/11/22 03/11/22 History Laboratory Tests 03/10/22 03/10/22 03/10/22 22:07 22:08 22:08 WBC Cancelled RBC Cancelled Hgb Cancelled Hct Cancelled MCV Cancelled MCH Cancelled MCHC Cancelled RDW Cancelled Plt Count Cancelled MPV Cancelled Immature Gran % (Auto) Cancelled Neut % (Auto) Cancelled Lymph % (Auto) Cancelled [place] % (Auto) Cancelled Eos % (Auto) Cancelled Baso % (Auto) Cancelled Lymph # (Auto) Cancelled [place] # (Auto) Cancelled Eos # (Auto) Cancelled Baso # (Auto) Cancelled Abs Immat Gran (auto) Cancelled Absolute Neuts (auto) Cancelled Absolute Nucleated RBC Cancelled Total Counted Neutrophils % (Manual) Band Neutrophils % Lymphocytes % (Manual) Monocytes % (Manual) Eosinophils % (Manual) Nucleated RBC % Cancelled Abs Neuts (Manual) Abs Lymphs (Manual) Abs Monocytes (Manual) Absolute Eos (Manual) Platelet Estimate Clumped Platelets % Immature Plt Fraction Cancelled Hypochromasia Poikilocytosis Anisocytosis Microcytosis Macrocytosis Spherocytes Schistocytes Absolute Retic Percent Retic Immature Retic Fraction Retic Hgb Content PT INR APTT Sodium 138 mmol/L mmol/L (137-145) Potassium 3.4 mmol/L mmol/L (3.4-5.0) Chloride 101 mmol/L mmol/L (98-107) Carbon Dioxide 21 mmol/L L mmol/L (22-30) Anion Gap 16 mmol/L mmol/L (8-16) BUN 11 mg/dL mg/dL (9-20) Creatinine 1.10 mg/dL mg/dL (0.7-1.3) Estim Creat Clear Calc 70 m
[2022-03-11] MEDS: FAMOTIDINE 20 MG/2 ML VIAL IV PUSH (15:14)
[2022-03-11] MEDS: ONDANSETRON INJ 4 MG/2 ML VIAL IV PUSH (15:14)
--- NOTE | 2022-03-11 15:18 | PC.NURSE ---
Patient to OR per bed at 1455.
[2022-03-11] MEDS: LIDOCAINE HCL 2% GEL UROJET 10 ML PKG MUCOUS MEM (15:39)
--- NOTE | 2022-03-11 15:53 | W.PM.PROC2 ---
Procedure Note - Detailed Date of Procedure 03/11/22 Pre-op Diagnosis Severe Sepsis,Left Foot Cellulitis,Osteomyelitis, Urinary Retention Post-op Diagnosis Same (Urinary retention due to BPH) Procedure Performed Cystoscopy, urethral dilatation Surgeon Omero Hinojosa MD Findings Very tight bulbous urethral stricture Description of Procedure The patient was brought to the operative suite where he was prepped and draped in a routine sterile fashion while in a dorsal lithotomy position after the uneventful administration of systemic sedation. 2% Lidocaine gel is introduced into the urethra and allowed to stand for an appropriate period of time. Cystoscopy was undertaken with a 16F flexible cystoscope. Ther is a very tight (~8F) stricture of the bulbous urethral. The prostatic urethral estimated length was 2.0cm. There was mild obstruction of the prostatic urethra with no median lobe enlargement. The bladder itself was endoscopically normal without foreign body or neoplasm. The bladder mucosa was without hyperemia. There was a single orthotopic ureteral orifice bilaterally with clear efflux of urine. Using the Amplatz dilators over a 0.035 glidewire I dilated the urethra and bladder neck from 8->22F. An 18F [place]-tip catheter was introduced into the bladder and clear urine drained. He was taken to PACU having tolerated well. Urine Output 0 Drains Yes Packing Yes Pathology None sent Complications No immediate complications Condition Stable
[2022-03-11 16:04] LABS: Glucose Point of Care 99 mg/dl (65-105)
[2022-03-11] MEDS: carBAMazepine 200 MG TABLET PO ×2 (17:24→20:33)
[2022-03-11] MEDS: TAMSULOSIN HCL 0.4 MG CAPSULE PO (17:24)
[2022-03-11 17:32] LABS: Glucose Point of Care 88 mg/dl (65-105)
[2022-03-11] MEDS: SODIUM CHLORIDE 0.9% IV 1,000 ML 100 ML IV CONT (20:32)
[2022-03-11 21:51] LABS: Glucose Point of Care 99 mg/dl (65-105)
[2022-03-12] VITALS (9 sets, daily range): BP systolic 116–155; BP diastolic 62–80; PULSE 81–92; RESP 18–20; TEMP 36.8–37.2; O2SAT 95
[2022-03-12] MEDS: metroNIDAZOLE 500 MG/ISO 100ML 500 MG/100 ML BAG 100 MG IVPB ×3 (03:57→20:45)
[2022-03-12] MEDS: SODIUM CHLORIDE 0.9% IV 1,000 ML 100 ML IV CONT ×2 (05:45→23:07)
[2022-03-12] MEDS: carBAMazepine 200 MG TABLET PO ×3 (05:46→22:08)
[2022-03-12 07:12] LABS: Basophils Absolute Auto 0.1 K/mm3 (0.0-0.1); Basophils Percent Auto 0.3 % (0.2-1.2); Eosinophils Absolute Auto 0.2 K/mm3 (0-0.3); Eosinophils Percent Auto 1.1 % (0-4.4); Hematocrit 27.1 % (42.0-52.0); Hemoglobin 8.9 g/dL (14.0-18.0); Immature Granulocyte Absolute 0.08 K/mm3 (0.00-0.031); Immature Granulocyte Percent A 0.5 % (0-0.5); Lymphocytes Absolute Auto 1.08 K/mm3 (0.9-3.2); Lymphocytes Percent Auto 6.3 % (18.3-44.2); Mean Corpuscular HGB Conc 32.8 g/dl (32-36); Mean Corpuscular Volume 97.5 fl (80-100); Mean Platelet Volume 11.3 fl (7.4-10.4); Monocytes Absolute Auto 2.1 K/mm3 (0.1-0.6); Monocytes Percent Auto 12.1 % (2.6-8.5); Neutrophils Absolute Auto 13.6 K/mm3 (1.3-6.7); Neutrophils Percent Auto 79.7 % (45.5-73.1); Platelet Count Result 333 k/mm3 (150-375); Red Blood Count 2.78 M/mm3 (4.6-6.20); Red Cell Distribution Width 13.4 % (11.5-14.5)
--- NOTE | 2022-03-12 07:22 | WPDUROPN2 ---
Progress Note: A&P Assessment and Plan (1) Difficult Osorio catheter placement: Code(s): T83.9XXA - Unspecified complication of genitourinary prosthetic device, implant and graft, initial encounter Status: Acute (2) Urethral stricture: Code(s): N35.919 - Unspecified urethral stricture, male, unspecified site Status: Acute Assessment and Plan: S/P dilatation tight urethral stricture Thur. 03/11 Would leave indwelling catheter until Tuesday morning -> can be discharge with leg bag if otherwise ready. Subjective Subjective Date/Time Seen: 03/12/22 07:22 Tolerating catheter well Review of Systems Cardiovascular: Cardiovascular: Denies chest pain, Denies lightheadedness, Denies palpitations and Denies dyspnea Respiratory: Respiratory: Denies dyspnea Gastrointestinal: Gastrointestinal: Denies diarrhea, Denies nausea and Denies vomiting Genitourinary: Genitourinary: Denies hematuria and Denies dysuria Endocrine: Endocrine: Denies palpitations Exam Const: General: no acute distress Resp: Effort & Inspection: normal respiratory effort GI: Inspection: non-distended GI Palp: No abdominal tenderness and No Guarding due to palpation present (GI) Auscultation: normal bowel sounds Urinary Catheter: Urinary Catheter: patent and draining and urine clear Objective Data Vital Signs Vital Signs: Vital Signs - 24 hr 03/11/22 09:33 03/11/22 08:52 03/11/22 14:11 Temperature 98.8 F Pulse Rate 87 81 Respiratory Rate 18 Blood Pressure 109/63 Pulse Oximetry 95 Oxygen Delivery Room Air 03/11/22 15:17 03/11/22 15:53 03/11/22 16:05 Temperature 99.6 F 99.2 F Pulse Rate 81 89 86 Respiratory Rate 16 22 H 22 H Blood Pressure 109/64 107/61 105/63 Pulse Oximetry 93 91 93 Oxygen Delivery Room Air Room Air Room Air 03/11/22 16:20 03/11/22 16:35 03/11/22 16:50 Temperature Pulse Rate 83 88 82 Respiratory Rate 21 H 21 H 24 H Blood Pressure 110/63 106/65 116/67 Pulse Oximetry 93 93 93 Oxygen Delivery Room Air Room Air Room Air 03/11/22 17:05 03/11/22 09:36 03/11/22 12:04 Temperature Pulse Rate 83 88 80 Respiratory Rate 24 H Blood Pressure 116/65 Pulse Oximetry 92 Oxygen Delivery Room Air 03/11/22 17:25 03/11/22 17:14 03/11/22 19:47 Temperature 98.7 F Pulse Rate 88 88 Respiratory Rate 30 H 16 Blood Pressure 114/61 Pulse Oximetry 90 94 Oxygen Delivery Room Air 03/11/22 20:32 03/11/22 20:00 03/11/22 20:00 Temperature Pulse Rate 78 78 Respiratory Rate Blood Pressure Pulse Oximetry Oxygen Delivery Room Air 03/12/22 04:21 03/12/22 00:00 03/12/22 04:00 Temperature 98.9 F Pulse Rate 89 88 86 Respiratory Rate 20 Blood Pressure 116/64 Pulse Oximetry 95 Oxygen Delivery Intake/Output Intake/Output: Intake & Output 03/09/22 03/10/22 03/11/22 03/12/22 23:59 23:59 23:59 23:59 Intake Total 5420 1270 Output Total 1395 3100 Balance 4025 -1830 Meds/Results Medications: Active Medications Generic Name Dose Route Start Last Admin Trade Name Freq PRN Reason Stop Dose Admin Albuterol 1 puff 03/11/22 07:50 Albuterol Sulfate (*Sp) Aerosol 1 Puff INHALATION QIDRT PRN Shortness Of Breath Aspirin 81 mg 03/11/22 09:00 03/11/22 09:33 Aspirin 81 Mg Enteric Tablet PO 81 mg DAILY LEAH Administration Atorvastatin Calcium 40 mg 03/11/22 09:00 03/11/22 09:32 Atorvastatin 40 Mg Tablet PO 40 mg DAILY LEAH Administration Carbamazepine 200 mg 03/11/22 14:00 03/12/22 05:46 Carbamazepine 200 Mg Tablet PO 200 mg Q8HR LEAH Administration Carvedilol 3.125 mg 03/11/22 09:00 03/11/22 20:32 Carvedilol 3.125 Mg Tablet PO 3.125 mg Q12HR LEAH Administration Dextrose 12.5 gm 03/11/22 02:45 Dextrose 50% 25 Gm/50 Ml Syringe IV PUSH PRN PRN Hypoglycemia Protocol Empagliflozin 10 mg 03/11/22 09:00 03/11/22 09:32 Empagliflozin 10 Mg Ta
[2022-03-12 07:49] LABS: Alanine Aminotransferase 39 U/L (6-50); Albumin Level 3.1 g/dL (3.5-5.1); Alkaline Phosphatase 125 U/L (38-126); Anion Gap 11 mmol/L (8-16); Aspartate Amino Transferase 42 U/L (17-59); Bilirubin,Total 0.7 mg/dL (0.2-1.3); Blood Urea Nitrogen 8 mg/dL (9-20); Calcium 8.2 mg/dL (8.4-10.2); Carbon Dioxide 18 mmol/L (22-30); Chloride 108 mmol/L (98-107); Estimated CRCL calculation 94 ml/min; Estimated Glomerular Filt Rate > 60; Glucose 65 mg/dL (65-110); Magnesium 1.8 mg/dL (1.6-2.3); Potassium 3.4 mmol/L (3.4-5.0); Sodium 137 mmol/L (137-145)
[2022-03-12 08:06] LABS: Glucose Point of Care 71 mg/dl (65-105)
[2022-03-12] MEDS: carvediloL 3.125 MG TABLET PO ×2 (08:29→20:50)
[2022-03-12] MEDS: FINASTERIDE 5 MG TABLET PO (08:29)
[2022-03-12] MEDS: ATORVASTATIN 40 MG TABLET PO (08:29)
[2022-03-12] MEDS: FENOFIBRATE 160 MG TABLET PO (08:30)
[2022-03-12] MEDS: lisinopriL 5 MG TABLET PO (08:30)
[2022-03-12] MEDS: ENOXAPARIN 40 MG/0.4 ML SYRINGE SUB-Q (08:30)
[2022-03-12] MEDS: ASPIRIN 81 MG ENTERIC TABLET PO (08:30)
[2022-03-12] MEDS: EMPAGLIFLOZIN 10 MG TABLET PO (08:30)
[2022-03-12] MEDS: TAMSULOSIN HCL 0.4 MG CAPSULE PO (08:30)
--- NOTE | 2022-03-12 10:45 | PM.IMPN ---
Progress Note: A&P Assessment and Plan (1) Severe sepsis: Code(s): A41.9 - Sepsis, unspecified organism; R65.20 - Severe sepsis without septic shock Status: Acute Assessment and Plan: Meets sepsis criteria with tachycardia, tachypnea, fever, leukocytosis, mental changes Source of infection is his left foot wound Lactic acid 1.3 Blood cultures grew Staphylococcus aureus with sensitivities pending Wound culture gram positive cocci in clusters Continue vanc, cefepime, and Flagyl at this time White blood cells 21.2 upon arrival, currently 17.0 IV fluids 2L bolus and continuous IV fluid Trend labs Adjust therapy as indicated (2) Cellulitis of foot, left: Code(s): L03.116 - Cellulitis of left lower limb Status: Acute Assessment and Plan: See above (3) Acute osteomyelitis of foot: Code(s): M86.179 - Other acute osteomyelitis, unspecified ankle and foot Status: Acute Assessment and Plan: X-rays left foot shows osteomyelitis of the left 3rd and 4th toes Ortho consulted thank you for your help Will probably need to be on product management analyst antibiotics Wound care consult Continue recommended dressing changes ID Pharm Consult Wound culture gram positive cocci in clusters adjust antibiotics to sensitivities MRI osteomyelitis of the third distal phalanx, and fourth middle distal phalanges, osteitis involving second proximal phalanx an head of second metatarsal, wide spread cellulitis of the forefoot with nonenhancement of much of the soft tissue Continue cefepime, flagyl, and vaco (4) Chronic anemia: Code(s): D64.9 - Anemia, unspecified Status: Acute Assessment and Plan: Current H/H 8.9/27.1 Anemia labs iron 11, TIBC 216, % sat 138, ferritin 348, B12 261, folate 6.6 Supplement as indicated Initiate ferrous sulfate PO trend H/H Transfuse as as indicated (5) Coronary artery disease: Code(s): I25.10 - Atherosclerotic heart disease of [place] coronary artery without angina pectoris Status: Acute Assessment and Plan: No active chest pain Continue Jardiance, aspirin, and carvedilol Telemonitor for now EKG No significant changes (6) Hypertension: Code(s): I10 - Essential (primary) hypertension Status: Acute Assessment and Plan: Current BP 116/64 Continue home carvedilol and lisinopril Trend BP adjust therapy as indicated (7) Type 2 diabetes mellitus: Code(s): E11.9 - Type 2 diabetes mellitus without complications Status: Acute Assessment and Plan: Current glucose 65 A1c 6.9 Continue home Jardiance, and lantus Trend glucose Hypoglycemia protocol Accu-cheks AC/HS ISS Adjust as indicated (8) Seizure disorder: Code(s): G40.909 - Epilepsy, unspecified, not intractable, without status epilepticus Status: Acute Assessment and Plan: Continue home medications Seems to be ok (9) Chronic obstructive pulmonary disease: Code(s): J44.9 - Chronic obstructive pulmonary disease, unspecified Status: Acute Assessment and Plan: Not in acute exacerbation Continue home medications Stable (10) Acute metabolic encephalopathy: Code(s): G93.41 - Metabolic encephalopathy Status: Acute Assessment and Plan: Head CT does not show any acute findings, does show some old infarcts Probably related to infection Has a foot wound WBC elevated at 21.1 upon admission, current 17.0 continue to trend mental status (11) Diabetic foot ulcer: Qualifiers: Diabetes mellitus type: type 2 Diabetic foot ulcer location: toe Laterality: left Non-pressure ulcer stage: with muscle involvement without evidence of necrosis Qualified Code(s): E11.621 - Type 2 diabetes mellitus with foot ulcer; L97.525 - Non-pressu
--- NOTE | 2022-03-12 10:45 | P.PNIM_ITS ---
Progress Note: A&P Assessment and Plan (1) Severe sepsis: Code(s): A41.9 - Sepsis, unspecified organism; R65.20 - Severe sepsis without septic shock Status: Acute Assessment and Plan: * Meets sepsis criteria with tachycardia, tachypnea, fever, leukocytosis, mental changes * Source of infection is his left foot wound * Lactic acid 1.3 * Blood cultures grew Staphylococcus aureus with sensitivities pending * Wound culture gram positive cocci in clusters * Continue vanc, cefepime, and Flagyl at this time * White blood cells 21.2 upon arrival, currently 17.0 * IV fluids 2L bolus and continuous IV fluid * Trend labs * Adjust therapy as indicated (2) Cellulitis of foot, left: Code(s): L03.116 - Cellulitis of left lower limb Status: Acute Assessment and Plan: * See above (3) Acute osteomyelitis of foot: Code(s): M86.179 - Other acute osteomyelitis, unspecified ankle and foot Status: Acute Assessment and Plan: * X-rays left foot shows osteomyelitis of the left 3rd and 4th toes * Ortho consulted thank you for your help * Will probably need to be on top hat body maker antibiotics * Wound care consult * Continue recommended dressing changes * ID Pharm Consult * Wound culture gram positive cocci in clusters * adjust antibiotics to sensitivities * MRI osteomyelitis of the third distal phalanx, and fourth middle distal phalanges, osteitis involving second proximal phalanx an head of second metatarsal, wide spread cellulitis of the forefoot with nonenhancement of much of the soft tissue * Continue cefepime, flagyl, and vaco (4) Chronic anemia: Code(s): D64.9 - Anemia, unspecified Status: Acute Assessment and Plan: * Current H/H 8.9/27.1 * Anemia labs iron 11, TIBC 216, % sat 138, ferritin 348, B12 261, folate 6.6 * Supplement as indicated * Initiate ferrous sulfate PO * trend H/H * Transfuse as as indicated (5) Coronary artery disease: Code(s): I25.10 - Atherosclerotic heart disease of [place] coronary artery without angina pectoris Status: Acute Assessment and Plan: * No active chest pain * Continue Jardiance, aspirin, and carvedilol * Telemonitor for now * EKG No significant changes (6) Hypertension: Code(s): I10 - Essential (primary) hypertension Status: Acute Assessment and Plan: * Current BP 116/64 * Continue home carvedilol and lisinopril * Trend BP * adjust therapy as indicated (7) Type 2 diabetes mellitus: Code(s): E11.9 - Type 2 diabetes mellitus without complications Status: Acute Assessment and Plan: * Current glucose 65 * A1c 6.9 * Continue home Jardiance, and lantus * Trend glucose * Hypoglycemia protocol * Accu-cheks AC/HS * ISS * Adjust as indicated (8) Seizure disorder: Code(s): G40.909 - Epilepsy, unspecified, not intractable, without status epilepticus Status: Acute Assessment and Plan: * Continue home medications * Seems to be ok (9) Chronic obstructive pulmonary disease: Code(s): J44.9 - Chronic obstructive pulmonary disease, unspecified Status: Acute Assessment and Plan: * Not in acute exacerbation * Continue home medications * Stable (10) Acute metabolic
--- NOTE | 2022-03-12 11:28 | WPDANESPN ---
Anes - Prog Note Post-Op Date/Time: 03/12/22 11:28 Cardiovascular status: normal Respiratory status: normal Airway patency: baseline Mental status: baseline Post-Op hydration status: normal Vital Signs: Last Vital Signs Temp 37.2 C 03/12/22 04:21 Pulse 87 03/12/22 08:29 Resp 20 03/12/22 04:21 BP 116/64 03/12/22 04:21 Pulse Ox 95 03/12/22 04:21 O2 Del Method Room Air 03/11/22 20:00 Pain Score (VAS): 0/10 I/O: Intake & Output 03/11/22 03/12/22 03/12/22 23:59 07:59 15:59 Intake Total 1290 1270 290 Output Total 1395 3100 Balance -105 -1830 290 Laboratory Tests 03/12/22 06:10 03/12/22 06:10 03/11/22 03/11/22 03/11/22 12:17 15:03 16:01 WBC RBC Hgb Hct MCV MCH MCHC RDW Plt Count MPV Immature Gran % (Auto) Neut % (Auto) Lymph % (Auto) [place] % (Auto) Eos % (Auto) Baso % (Auto) Lymph # (Auto) [place] # (Auto) Eos # (Auto) Baso # (Auto) Abs Immat Gran (auto) Absolute Neuts (auto) Absolute Nucleated RBC Nucleated RBC % Sodium Potassium Chloride Carbon Dioxide Anion Gap BUN Creatinine Estim Creat Clear Calc Estimated GFR Glucose POC Capillary Glucose 123 H 114 H 99 Calcium Magnesium Total Bilirubin AST ALT Alkaline Phosphatase Total Protein Albumin 03/11/22 03/11/22 03/12/22 17:29 20:27 06:10 WBC 17.0 H RBC 2.78 L Hgb 8.9 L Hct 27.1 L MCV 97.5 MCH 32.0 MCHC 32.8 RDW 13.4 Plt Count 333 MPV 11.3 H Immature Gran % (Auto) 0.5 Neut % (Auto) 79.7 H Lymph % (Auto) 6.3 L [place] % (Auto) 12.1 H Eos % (Auto) 1.1 Baso % (Auto) 0.3 Lymph # (Auto) 1.08 [place] # (Auto) 2.1 H Eos # (Auto) 0.2 Baso # (Auto) 0.1 Abs Immat Gran (auto) 0.08 H Absolute Neuts (auto) 13.6 H Absolute Nucleated RBC 0.0 Nucleated RBC % 0.0 Sodium Potassium Chloride Carbon Dioxide Anion Gap BUN Creatinine Estim Creat Clear Calc Estimated GFR Glucose POC Capillary Glucose 88 99 Calcium Magnesium Total Bilirubin AST ALT Alkaline Phosphatase Total Protein Albumin 03/12/22 03/12/22 06:10 08:04 WBC RBC Hgb Hct MCV MCH MCHC RDW Plt Count MPV Immature Gran % (Auto) Neut % (Auto) Lymph % (Auto) [place] % (Auto) Eos % (Auto) Baso % (Auto) Lymph # (Auto) [place] # (Auto) Eos # (Auto) Baso # (Auto) Abs Immat Gran (auto) Absolute Neuts (auto) Absolute Nucleated RBC Nucleated RBC % Sodium 137 Potassium 3.4 Chloride 108 H Carbon Dioxide 18 L Anion Gap 11 BUN 8 L Creatinine 0.80 Estim Creat Clear Calc 94 Estimated GFR > 60 Glucose 65 POC Capillary Glucose 71 Calcium 8.2 L Magnesium 1.8 Total Bilirubin 0.7 AST 42 ALT 39 Alkaline Phosphatase 125 Total Protein 6.0 L Albumin 3.1 L Microbiology 03/10/22 22:40 Blood Blood Culture - Preliminary 03/10/22 22:08 Blood Blood Culture - Preliminary 03/11/22 00:16 Foot Left Wound Culture - Preliminary Post-procedural complaints: none Patient Feedback: Patient satisfied with anesthetic care.
[2022-03-12 12:17] LABS: Glucose Point of Care 115 mg/dl (65-105)
--- NOTE | 2022-03-12 14:18 | PM.PNORT ---
Progress Note: A&P Assessment and Plan (1) Diabetic foot ulcer: Qualifiers: Diabetic foot ulcer location: toe Diabetes mellitus type: type 2 Laterality: left Non-pressure ulcer stage: with muscle involvement without evidence of necrosis Qualified Code(s): E11.621 - Type 2 diabetes mellitus with foot ulcer; L97.525 - Non-pressure chronic ulcer of other part of left foot with muscle involvement without evidence of necrosis Code(s): E11.621 - Type 2 diabetes mellitus with foot ulcer; L97.509 - Non-pressure chronic ulcer of other part of unspecified foot with unspecified severity Status: Acute Assessment and Plan: Wound on the plantar aspect of the left foot which measures 1.0 x 0.5 x 1.5 cm with tunneling at the 12 o'clock position towards the 2nd metatarsal to 2 cm. Unable to palpate bone. Hallux with improvement in swelling and erythema. Small dorsal ulcer over the MTP joint which measures 0.5 x 0.2 x 0.2 cm. Malodor noted. Blistering between the 1st and 2nd ray resolved today. MRI of the left foot reveals reactive changes at the 2nd metatarsophalangeal joint which may be early osteomyelitis versus cellulitis with reactive osteitis. Changes seen on the radiographs/MRI at the distal 3rd and 4th toe as well as on the MRI. Do not correlate with the clinical picture has there is no swelling, erythema or skin break at the 3rd or 4th toe. May be auto necrosis due to poor blood flow and neuropathy. Wound cultures with staph, pending sensitivities. Blood cultures with preliminary results of Staph, pending final results. Continue IV antibiotics under the direction of the medicine team. Begin daily dressing changes with Aquacel AG rope and cover dry. Patient may require operative treatment if he does not continue to show signs of improvement in the overall appearance of the left foot/wounds. May need debridement of the 2nd metatarsophalangeal joint. (2) Cellulitis of foot, left: Code(s): L03.116 - Cellulitis of left lower limb Status: Acute Assessment and Plan: IV antibiotics continued. (3) Severe sepsis: Code(s): A41.9 - Sepsis, unspecified organism; R65.20 - Severe sepsis without septic shock Status: Acute Assessment and Plan: IV antibiotics continued. Subjective Subjective Date/Time Seen: 03/12/22 14:18 Interval history: No new complaints. No complaints of pain. Review of Systems Review of Systems: All systems reviewed & are unremarkable except as noted in HPI and below (HPI ) Exam Const: General: comfortable and no acute distress HENMT: Mouth: Yes moist mucous membranes Eyes: General: appearance normal, both eyes and all related structures Neck: Neck: supple and no JVD Resp: Effort & Inspection: normal respiratory effort Cardio: Rate: regular rate Rhythm: regular rhythm GI: Inspection: non-distended GI Palp: Yes Soft to palpation and No Tenderness to palpation present (GI) Neuro: General: gait normal Speech: normal speech Extrem: Right lower extremity: foot ( no open wounds, sluggish capillary refill. No erythema or swelling. ) Details: motor-sensory exam Details: light-touch abnormal Left lower extremity: foot ( Yellow thickened toenails) Details: toes with normal ROM, warmth, edema ( entire foot, 4+ pitting edema), vascular exam Details: dorsalis pedis pulse present ( unable to be palpated, required Doppler) and abnormal capillary refill Location: of all toes and motor-sensory exam light-touch abnormal ( to ankle) in all toes; no tenderness ( neuropathic) Other: wound on the plantar aspect of the left foot at the 2nd metatarsal measures 1.0 x 0.5 x 1.5 cm with a 2 cm tunnel in the 12 o'clock position. Slough tissue covering wound bed. Purulence drainage. Mild malodor. Wound on the dorsal aspect of the 1st MTP joint measures 0.5 x 0.2 x 0.2 cm. 100% red/ pink wound bed. Sanguinous drainage. Scant. Entire left foot has 2+ pitting ed
[2022-03-12 17:33] LABS: Glucose Point of Care 71 mg/dl (65-105)
[2022-03-12] MEDS: OLANZapine 5 MG TABLET 10 MG PO (20:49)
[2022-03-12] MEDS: INSULIN GLARGINE (*BKC) 100 UNITS/ML 45 UNITS SUB-Q (20:50)
[2022-03-13] VITALS (10 sets, daily range): BP systolic 107–150; BP diastolic 49–89; PULSE 76–92; RESP 16–20; TEMP 36.3–37.2; O2SAT 94–99
[2022-03-13] MEDS: metroNIDAZOLE 500 MG/ISO 100ML 500 MG/100 ML BAG 100 MG IVPB ×3 (04:31→20:09)
[2022-03-13 05:54] LABS: Glucose Point of Care 74 mg/dl (65-105)
--- NOTE | 2022-03-13 06:42 | PC.NURSE ---
Patient had two emesis at 0600, notified Hospitalist about patient and patient was given Zofran, Will continue to monitor.
[2022-03-13] MEDS: ONDANSETRON INJ 4 MG/2 ML VIAL IV PUSH (06:52)
[2022-03-13 06:56] LABS: Basophils Absolute Auto 0.1 K/mm3 (0.0-0.1); Basophils Percent Auto 0.3 % (0.2-1.2); Eosinophils Absolute Auto 0.3 K/mm3 (0-0.3); Hematocrit 26.9 % (42.0-52.0); Hemoglobin 8.9 g/dL (14.0-18.0); Immature Granulocyte Absolute 0.07 K/mm3 (0.00-0.031); Immature Granulocyte Percent A 0.4 % (0-0.5); Lymphocytes Absolute Auto 0.71 K/mm3 (0.9-3.2); Lymphocytes Percent Auto 4.5 % (18.3-44.2); Mean Corpuscular HGB Conc 33.1 g/dl (32-36); Mean Corpuscular Hemoglobin 32.1 pg (26-34); Mean Corpuscular Volume 97.1 fl (80-100); Mean Platelet Volume 10.6 fl (7.4-10.4); Monocytes Percent Auto 12.5 % (2.6-8.5); Neutrophils Absolute Auto 12.7 K/mm3 (1.3-6.7); Neutrophils Percent Auto 80.3 % (45.5-73.1); Platelet Count Result 361 k/mm3 (150-375); Red Blood Count 2.77 M/mm3 (4.6-6.20); Red Cell Distribution Width 13.4 % (11.5-14.5); White Blood Count 15.9 K/mm3 (4.5-10.0)
[2022-03-13 07:07] LABS: Alanine Aminotransferase 34 U/L (6-50); Albumin Level 3.1 g/dL (3.5-5.1); Alkaline Phosphatase 116 U/L (38-126); Anion Gap 12 mmol/L (8-16); Aspartate Amino Transferase 38 U/L (17-59); Bilirubin,Total 0.4 mg/dL (0.2-1.3); Blood Urea Nitrogen 8 mg/dL (9-20); Calcium 7.8 mg/dL (8.4-10.2); Carbon Dioxide 20 mmol/L (22-30); Chloride 104 mmol/L (98-107); Estimated CRCL calculation 106 ml/min; Estimated Glomerular Filt Rate > 60; Glucose 75 mg/dL (65-110); Magnesium 1.8 mg/dL (1.6-2.3); Potassium 3.1 mmol/L (3.4-5.0); Sodium 136 mmol/L (137-145)
[2022-03-13 08:47] LABS: Glucose Point of Care 85 mg/dl (65-105)
[2022-03-13] MEDS: SODIUM CHLORIDE 0.9% IV 1,000 ML 100 ML IV CONT ×2 (09:12→20:09)
[2022-03-13] MEDS: ASPIRIN 81 MG ENTERIC TABLET PO (09:20)
[2022-03-13] MEDS: EMPAGLIFLOZIN 10 MG TABLET PO (09:20)
[2022-03-13] MEDS: carvediloL 3.125 MG TABLET PO ×2 (09:20→20:10)
[2022-03-13] MEDS: ATORVASTATIN 40 MG TABLET PO (09:20)
[2022-03-13] MEDS: lisinopriL 5 MG TABLET PO (09:21)
[2022-03-13] MEDS: ENOXAPARIN 40 MG/0.4 ML SYRINGE SUB-Q (09:21)
[2022-03-13] MEDS: OLANZapine 5 MG TABLET 10 MG PO ×2 (09:21→20:10)
[2022-03-13] MEDS: FENOFIBRATE 160 MG TABLET PO (09:21)
[2022-03-13] MEDS: FINASTERIDE 5 MG TABLET PO (09:21)
[2022-03-13] MEDS: TAMSULOSIN HCL 0.4 MG CAPSULE PO (09:21)
--- NOTE | 2022-03-13 09:45 | PM.IMPN ---
Progress Note: A&P Assessment and Plan (1) Severe sepsis: Code(s): A41.9 - Sepsis, unspecified organism; R65.20 - Severe sepsis without septic shock Status: Acute Assessment and Plan: Meets sepsis criteria with tachycardia, tachypnea, fever, leukocytosis, mental changes Source of infection is his left foot wound Lactic acid 1.3 Blood cultures grew Staphylococcus epidermis, which is likely a contaminate Wound culture grew Staphylococcus aureus and pseudomonas aeruginosa Continue vanc, cefepime, and Flagyl at this time White blood cells 21.2 upon arrival, currently 15.9 IV fluids 2L bolus and continuous IV fluid Trend labs Adjust therapy as indicated (2) Cellulitis of foot, left: Code(s): L03.116 - Cellulitis of left lower limb Status: Acute Assessment and Plan: See above (3) Acute osteomyelitis of foot: Code(s): M86.179 - Other acute osteomyelitis, unspecified ankle and foot Status: Acute Assessment and Plan: X-rays left foot shows osteomyelitis of the left 3rd and 4th toes Ortho consulted thank you for your help Will probably need to be on long term acute care registered nurse antibiotics Wound care consult Continue recommended dressing changes ID Pharm Consult Wound culture Staphylococcus aureus, Pseudomonas aeruginosa adjust antibiotics to sensitivities MRI osteomyelitis of the third distal phalanx, and fourth middle distal phalanges, osteitis involving second proximal phalanx an head of second metatarsal, wide spread cellulitis of the forefoot with nonenhancement of much of the soft tissue Continue cefepime, flagyl, and vaco (4) Chronic anemia: Code(s): D64.9 - Anemia, unspecified Status: Acute Assessment and Plan: Current H/H 8.9/26.9 Anemia labs iron 11, TIBC 216, % sat 138, ferritin 348, B12 261, folate 6.6 Supplement as indicated Initiate ferrous sulfate PO trend H/H Transfuse as as indicated (5) Coronary artery disease: Code(s): I25.10 - Atherosclerotic heart disease of [place] coronary artery without angina pectoris Status: Acute Assessment and Plan: No active chest pain Continue Jardiance, aspirin, and carvedilol Telemonitor for now EKG No significant changes (6) Hypertension: Code(s): I10 - Essential (primary) hypertension Status: Acute Assessment and Plan: Current BP 149/89 Continue home carvedilol and lisinopril Trend BP adjust therapy as indicated (7) Type 2 diabetes mellitus: Code(s): E11.9 - Type 2 diabetes mellitus without complications Status: Acute Assessment and Plan: Current glucose 74 A1c 6.9 Continue home Jardiance, and lantus Trend glucose Hypoglycemia protocol Accu-cheks AC/HS ISS Adjust as indicated (8) Seizure disorder: Code(s): G40.909 - Epilepsy, unspecified, not intractable, without status epilepticus Status: Acute Assessment and Plan: Continue home medications Seems to be ok (9) Chronic obstructive pulmonary disease: Code(s): J44.9 - Chronic obstructive pulmonary disease, unspecified Status: Acute Assessment and Plan: Not in acute exacerbation Continue home medications Stable (10) Acute metabolic encephalopathy: Code(s): G93.41 - Metabolic encephalopathy Status: Acute Assessment and Plan: Head CT does not show any acute findings, does show some old infarcts Probably related to infection Has a foot wound WBC elevated at 21.1 upon admission, current 15.9 continue to trend mental status Wound culture has multiple organisms growing (11) Diabetic foot ulcer: Qualifiers: Diabetes mellitus type: type 2 Diabetic foot ulcer location: toe Laterality: left Non-pressure ulcer stage: with muscle involvement without evidence of necrosis Qual
--- NOTE | 2022-03-13 09:45 | P.PNIM_ITS ---
Progress Note: A&P Assessment and Plan (1) Severe sepsis: Code(s): A41.9 - Sepsis, unspecified organism; R65.20 - Severe sepsis without septic shock Status: Acute Assessment and Plan: * Meets sepsis criteria with tachycardia, tachypnea, fever, leukocytosis, mental changes * Source of infection is his left foot wound * Lactic acid 1.3 * Blood cultures grew Staphylococcus epidermis, which is likely a contaminate * Wound culture grew Staphylococcus aureus and pseudomonas aeruginosa * Continue vanc, cefepime, and Flagyl at this time * White blood cells 21.2 upon arrival, currently 15.9 * IV fluids 2L bolus and continuous IV fluid * Trend labs * Adjust therapy as indicated (2) Cellulitis of foot, left: Code(s): L03.116 - Cellulitis of left lower limb Status: Acute Assessment and Plan: * See above (3) Acute osteomyelitis of foot: Code(s): M86.179 - Other acute osteomyelitis, unspecified ankle and foot Status: Acute Assessment and Plan: * X-rays left foot shows osteomyelitis of the left 3rd and 4th toes * Ortho consulted thank you for your help * Will probably need to be on group home antibiotics * Wound care consult * Continue recommended dressing changes * ID Pharm Consult * Wound culture Staphylococcus aureus, Pseudomonas aeruginosa * adjust antibiotics to sensitivities * MRI osteomyelitis of the third distal phalanx, and fourth middle distal phalanges, osteitis involving second proximal phalanx an head of second metatarsal, wide spread cellulitis of the forefoot with nonenhancement of much of the soft tissue * Continue cefepime, flagyl, and vaco (4) Chronic anemia: Code(s): D64.9 - Anemia, unspecified Status: Acute Assessment and Plan: * Current H/H 8.9/26.9 * Anemia labs iron 11, TIBC 216, % sat 138, ferritin 348, B12 261, folate 6.6 * Supplement as indicated * Initiate ferrous sulfate PO * trend H/H * Transfuse as as indicated (5) Coronary artery disease: Code(s): I25.10 - Atherosclerotic heart disease of [place] coronary artery without angina pectoris Status: Acute Assessment and Plan: * No active chest pain * Continue Jardiance, aspirin, and carvedilol * Telemonitor for now * EKG No significant changes (6) Hypertension: Code(s): I10 - Essential (primary) hypertension Status: Acute Assessment and Plan: * Current BP 149/89 * Continue home carvedilol and lisinopril * Trend BP * adjust therapy as indicated (7) Type 2 diabetes mellitus: Code(s): E11.9 - Type 2 diabetes mellitus without complications Status: Acute Assessment and Plan: * Current glucose 74 * A1c 6.9 * Continue home Jardiance, and lantus * Trend glucose * Hypoglycemia protocol * Accu-cheks AC/HS * ISS * Adjust as indicated (8) Seizure disorder: Code(s): G40.909 - Epilepsy, unspecified, not intractable, without status epilepticus Status: Acute Assessment and Plan: * Continue home medications * Seems to be ok (9) Chronic obstructive pulmonary disease: Code(s): J44.9 - Chronic obstructive pulmonary disease, unspecified Status: Acute Assessment and Plan: * Not in acute exacerbation * Continue home medications * Stable
[2022-03-13 12:02] LABS: Glucose Point of Care 112 mg/dl (65-105)
[2022-03-13] MEDS: carBAMazepine 200 MG TABLET PO ×2 (13:04→21:11)
[2022-03-13 17:04] LABS: Glucose Point of Care 62 mg/dl (65-105)
[2022-03-13 17:43] LABS: Glucose Point of Care 73 mg/dl (65-105)
[2022-03-13 18:48] LABS: Glucose Point of Care 129 mg/dl (65-105)
[2022-03-13 19:21] LABS: Vancomycin Trough 13.6 ug/mL (10.0-20.0)
[2022-03-13] MEDS: ACETAMINOPHEN 325 MG TABLET 650 MG PO (20:08)
[2022-03-13 20:58] LABS: Glucose Point of Care 117 mg/dl (65-105)
[2022-03-14] VITALS (12 sets, daily range): BP systolic 112–116; BP diastolic 55–70; PULSE 73–85; RESP 16–20; TEMP 36.6–37.2; O2SAT 91–96
[2022-03-14] MEDS: ONDANSETRON INJ 4 MG/2 ML VIAL IV PUSH (00:10)
[2022-03-14] MEDS: metroNIDAZOLE 500 MG/ISO 100ML 500 MG/100 ML BAG 100 MG IVPB ×3 (03:33→20:47)
[2022-03-14] MEDS: carBAMazepine 200 MG TABLET PO ×3 (05:28→21:45)
[2022-03-14 06:22] LABS: Estimated CRCL calculation 106 ml/min; Estimated Glomerular Filt Rate > 60
--- NOTE | 2022-03-14 07:45 | P.PNIM_ITS ---
Progress Note: A&P Assessment and Plan (1) Severe sepsis: Code(s): A41.9 - Sepsis, unspecified organism; R65.20 - Severe sepsis without septic shock Status: Acute Assessment and Plan: * Meets sepsis criteria with tachycardia, tachypnea, fever, leukocytosis, mental changes * Source of infection is his left foot wound * Lactic acid 1.3 * Blood cultures grew Staphylococcus epidermis, which is likely a contaminate * Wound culture grew Staphylococcus aureus and pseudomonas aeruginosa * Continue vanc, cefepime, and Flagyl at this time * White blood cells 21.2 upon arrival, currently 14.2 * IV fluids 2L bolus * continuous IV fluid DC'd as the patient is eating and drinking well * Trend labs * Adjust therapy as indicated (2) Cellulitis of foot, left: Code(s): L03.116 - Cellulitis of left lower limb Status: Acute Assessment and Plan: * See above (3) Acute osteomyelitis of foot: Code(s): M86.179 - Other acute osteomyelitis, unspecified ankle and foot Status: Acute Assessment and Plan: * X-rays left foot shows osteomyelitis of the left 3rd and 4th toes * Ortho consulted thank you for your help * Will probably need to be on intermediate antibiotics * Wound care consult * Continue recommended dressing changes * ID Pharm Consult * Wound culture Staphylococcus aureus, Pseudomonas aeruginosa * adjust antibiotics to sensitivities * MRI osteomyelitis of the third distal phalanx, and fourth middle distal phalanges, osteitis involving second proximal phalanx an head of second metatarsal, wide spread cellulitis of the forefoot with nonenhancement of much of the soft tissue * Continue cefepime, flagyl, and vaco (4) Chronic anemia: Code(s): D64.9 - Anemia, unspecified Status: Acute Assessment and Plan: * Current H/H 8.7/26.7 * Anemia labs iron 11, TIBC 216, % sat 138, ferritin 348, B12 261, folate 6.6 * Supplement as indicated * Initiate ferrous sulfate PO * trend H/H * Transfuse as as indicated (5) Coronary artery disease: Code(s): I25.10 - Atherosclerotic heart disease of [place] coronary artery without angina pectoris Status: Acute Assessment and Plan: * No active chest pain * Continue Jardiance, aspirin, and carvedilol * Telemonitor for now * EKG No significant changes (6) Hypertension: Code(s): I10 - Essential (primary) hypertension Status: Acute Assessment and Plan: * Current BP 116/63 * Continue home carvedilol and lisinopril * Trend BP * adjust therapy as indicated (7) Type 2 diabetes mellitus: Code(s): E11.9 - Type 2 diabetes mellitus without complications Status: Acute Assessment and Plan: * Current glucose 86 * A1c 6.9 * Continue home Jardiance, and lantus * Trend glucose * Hypoglycemia protocol * Accu-cheks AC/HS * ISS * Adjust as indicated (8) Seizure disorder: Code(s): G40.909 - Epilepsy, unspecified, not intractable, without status epilepticus Status: Acute Assessment and Plan: * Continue home medications * Seems to be ok (9) Chronic obstructive pulmonary disease: Code(s): J44.9 - Chronic obstructive pulmonary disease, unspecified Status: Acute Assessment and Plan: * Not in acute exacerbation * Co
--- NOTE | 2022-03-14 07:45 | PM.IMPN ---
Progress Note: A&P Assessment and Plan (1) Severe sepsis: Code(s): A41.9 - Sepsis, unspecified organism; R65.20 - Severe sepsis without septic shock Status: Acute Assessment and Plan: Meets sepsis criteria with tachycardia, tachypnea, fever, leukocytosis, mental changes Source of infection is his left foot wound Lactic acid 1.3 Blood cultures grew Staphylococcus epidermis, which is likely a contaminate Wound culture grew Staphylococcus aureus and pseudomonas aeruginosa Continue vanc, cefepime, and Flagyl at this time White blood cells 21.2 upon arrival, currently 14.2 IV fluids 2L bolus continuous IV fluid DC'd as the patient is eating and drinking well Trend labs Adjust therapy as indicated (2) Cellulitis of foot, left: Code(s): L03.116 - Cellulitis of left lower limb Status: Acute Assessment and Plan: See above (3) Acute osteomyelitis of foot: Code(s): M86.179 - Other acute osteomyelitis, unspecified ankle and foot Status: Acute Assessment and Plan: X-rays left foot shows osteomyelitis of the left 3rd and 4th toes Ortho consulted thank you for your help Will probably need to be on tank terminal gauger antibiotics Wound care consult Continue recommended dressing changes ID Pharm Consult Wound culture Staphylococcus aureus, Pseudomonas aeruginosa adjust antibiotics to sensitivities MRI osteomyelitis of the third distal phalanx, and fourth middle distal phalanges, osteitis involving second proximal phalanx an head of second metatarsal, wide spread cellulitis of the forefoot with nonenhancement of much of the soft tissue Continue cefepime, flagyl, and vaco (4) Chronic anemia: Code(s): D64.9 - Anemia, unspecified Status: Acute Assessment and Plan: Current H/H 8.7/26.7 Anemia labs iron 11, TIBC 216, % sat 138, ferritin 348, B12 261, folate 6.6 Supplement as indicated Initiate ferrous sulfate PO trend H/H Transfuse as as indicated (5) Coronary artery disease: Code(s): I25.10 - Atherosclerotic heart disease of [place] coronary artery without angina pectoris Status: Acute Assessment and Plan: No active chest pain Continue Jardiance, aspirin, and carvedilol Telemonitor for now EKG No significant changes (6) Hypertension: Code(s): I10 - Essential (primary) hypertension Status: Acute Assessment and Plan: Current BP 116/63 Continue home carvedilol and lisinopril Trend BP adjust therapy as indicated (7) Type 2 diabetes mellitus: Code(s): E11.9 - Type 2 diabetes mellitus without complications Status: Acute Assessment and Plan: Current glucose 86 A1c 6.9 Continue home Jardiance, and lantus Trend glucose Hypoglycemia protocol Accu-cheks AC/HS ISS Adjust as indicated (8) Seizure disorder: Code(s): G40.909 - Epilepsy, unspecified, not intractable, without status epilepticus Status: Acute Assessment and Plan: Continue home medications Seems to be ok (9) Chronic obstructive pulmonary disease: Code(s): J44.9 - Chronic obstructive pulmonary disease, unspecified Status: Acute Assessment and Plan: Not in acute exacerbation Continue home medications Stable (10) Acute metabolic encephalopathy: Code(s): G93.41 - Metabolic encephalopathy Status: Acute Assessment and Plan: Head CT does not show any acute findings, does show some old infarcts Probably related to infection Has a foot wound WBC elevated at 21.1 upon admission, current 14.2 continue to trend mental status Wound culture has multiple organisms growing Not getting better nor is this getting worse (11) Diabetic foot ulcer: Qualifiers: Diabetes mellitus type: type 2 Diabetic foot ulcer location: toe Lateral
[2022-03-14 08:34] LABS: Glucose Point of Care 86 mg/dl (65-105)
[2022-03-14 09:09] LABS: Basophils Absolute Auto 0.1 K/mm3 (0.0-0.1); Basophils Percent Auto 0.4 % (0.2-1.2); Eosinophils Absolute Auto 0.3 K/mm3 (0-0.3); Eosinophils Percent Auto 2.4 % (0-4.4); Hematocrit 26.7 % (42.0-52.0); Hemoglobin 8.7 g/dL (14.0-18.0); Immature Granulocyte Absolute 0.06 K/mm3 (0.00-0.031); Immature Granulocyte Percent A 0.4 % (0-0.5); Lymphocytes Absolute Auto 1.14 K/mm3 (0.9-3.2); Mean Corpuscular HGB Conc 32.6 g/dl (32-36); Mean Corpuscular Hemoglobin 31.8 pg (26-34); Mean Corpuscular Volume 97.4 fl (80-100); Mean Platelet Volume 10.9 fl (7.4-10.4); Monocytes Absolute Auto 1.8 K/mm3 (0.1-0.6); Monocytes Percent Auto 12.8 % (2.6-8.5); Neutrophils Absolute Auto 10.8 K/mm3 (1.3-6.7); Platelet Count Result 414 k/mm3 (150-375); Red Blood Count 2.74 M/mm3 (4.6-6.20); Red Cell Distribution Width 13.7 % (11.5-14.5); White Blood Count 14.2 K/mm3 (4.5-10.0)
[2022-03-14 09:39] LABS: Alanine Aminotransferase 28 U/L (6-50); Albumin Level 2.8 g/dL (3.5-5.1); Alkaline Phosphatase 111 U/L (38-126); Anion Gap 9 mmol/L (8-16); Aspartate Amino Transferase 29 U/L (17-59); Bilirubin,Total 0.3 mg/dL (0.2-1.3); Blood Urea Nitrogen 8 mg/dL (9-20); Calcium 7.9 mg/dL (8.4-10.2); Carbon Dioxide 20 mmol/L (22-30); Chloride 105 mmol/L (98-107); Estimated CRCL calculation 106 ml/min; Estimated Glomerular Filt Rate > 60; Glucose 88 mg/dL (65-110); Potassium 3.3 mmol/L (3.4-5.0); Sodium 134 mmol/L (137-145)
[2022-03-14] MEDS: ASPIRIN 81 MG ENTERIC TABLET PO (09:46)
[2022-03-14] MEDS: lisinopriL 5 MG TABLET PO (09:46)
[2022-03-14] MEDS: ATORVASTATIN 40 MG TABLET PO (09:46)
[2022-03-14] MEDS: OLANZapine 5 MG TABLET 10 MG PO ×2 (09:46→21:45)
[2022-03-14] MEDS: carvediloL 3.125 MG TABLET PO ×2 (09:46→21:44)
[2022-03-14] MEDS: ENOXAPARIN 40 MG/0.4 ML SYRINGE SUB-Q (09:46)
[2022-03-14] MEDS: FENOFIBRATE 160 MG TABLET PO (09:46)
[2022-03-14] MEDS: EMPAGLIFLOZIN 10 MG TABLET PO (09:46)
[2022-03-14] MEDS: FINASTERIDE 5 MG TABLET PO (09:46)
[2022-03-14] MEDS: TAMSULOSIN HCL 0.4 MG CAPSULE PO (09:47)
[2022-03-14 12:06] LABS: Glucose Point of Care 145 mg/dl (65-105)
[2022-03-14] MEDS: ACETAMINOPHEN 325 MG TABLET 650 MG PO ×2 (13:44→22:47)
[2022-03-14] MEDS: SODIUM CHLORIDE 0.9% IV 1,000 ML 100 ML IV CONT (16:57)
[2022-03-14 17:01] LABS: Glucose Point of Care 88 mg/dl (65-105)
[2022-03-14 21:54] LABS: Glucose Point of Care 94 mg/dl (65-105)
[2022-03-15] VITALS (12 sets, daily range): BP systolic 117–127; BP diastolic 53–59; PULSE 60–98; RESP 16–18; TEMP 36.6–37; O2SAT 93–97
[2022-03-15] MEDS: metroNIDAZOLE 500 MG/ISO 100ML 500 MG/100 ML BAG 100 MG IVPB (04:15)
[2022-03-15] MEDS: carBAMazepine 200 MG TABLET PO ×3 (06:13→21:11)
[2022-03-15] MEDS: SODIUM CHLORIDE 0.9% IV 1,000 ML 100 ML IV CONT ×2 (06:13→23:40)
[2022-03-15] MEDS: lisinopriL 5 MG TABLET PO (08:14)
[2022-03-15] MEDS: carvediloL 3.125 MG TABLET PO ×2 (08:14→21:10)
[2022-03-15] MEDS: EMPAGLIFLOZIN 10 MG TABLET PO (08:14)
[2022-03-15] MEDS: TAMSULOSIN HCL 0.4 MG CAPSULE PO (08:14)
[2022-03-15] MEDS: FENOFIBRATE 160 MG TABLET PO (08:14)
[2022-03-15] MEDS: OLANZapine 5 MG TABLET 10 MG PO ×2 (08:14→21:11)
[2022-03-15] MEDS: FINASTERIDE 5 MG TABLET PO (08:14)
[2022-03-15] MEDS: ATORVASTATIN 40 MG TABLET PO (08:15)
[2022-03-15] MEDS: ENOXAPARIN 40 MG/0.4 ML SYRINGE SUB-Q (08:15)
[2022-03-15] MEDS: ASPIRIN 81 MG ENTERIC TABLET PO (08:15)
--- NOTE | 2022-03-15 08:31 | PCPTNOTE ---
Patient refused treatment this session. Patient reported he wanted to see the M.D. first and insisted he see the M.D. prior to working with PT.
[2022-03-15 08:32] LABS: Glucose Point of Care 105 mg/dl (65-105)
[2022-03-15 09:45] LABS: Basophils Absolute Auto 0.1 K/mm3 (0.0-0.1); Basophils Percent Auto 0.5 % (0.2-1.2); Eosinophils Absolute Auto 0.5 K/mm3 (0-0.3); Eosinophils Percent Auto 2.9 % (0-4.4); Hematocrit 28.5 % (42.0-52.0); Hemoglobin 9.3 g/dL (14.0-18.0); Immature Granulocyte Absolute 0.13 K/mm3 (0.00-0.031); Immature Granulocyte Percent A 0.8 % (0-0.5); Lymphocytes Absolute Auto 1.13 K/mm3 (0.9-3.2); Lymphocytes Percent Auto 7.3 % (18.3-44.2); Mean Corpuscular HGB Conc 32.6 g/dl (32-36); Mean Corpuscular Hemoglobin 31.4 pg (26-34); Mean Corpuscular Volume 96.3 fl (80-100); Mean Platelet Volume 10.5 fl (7.4-10.4); Monocytes Absolute Auto 1.8 K/mm3 (0.1-0.6); Monocytes Percent Auto 11.6 % (2.6-8.5); Neutrophils Percent Auto 76.9 % (45.5-73.1); Platelet Count Result 494 k/mm3 (150-375); Red Blood Count 2.96 M/mm3 (4.6-6.20); Red Cell Distribution Width 13.6 % (11.5-14.5); White Blood Count 15.5 K/mm3 (4.5-10.0)
[2022-03-15] MEDS: ACETAMINOPHEN 325 MG TABLET 650 MG PO (09:56)
[2022-03-15 09:58] LABS: Alanine Aminotransferase 26 U/L (6-50); Alkaline Phosphatase 113 U/L (38-126); Anion Gap 10 mmol/L (8-16); Aspartate Amino Transferase 29 U/L (17-59); Bilirubin,Total 0.4 mg/dL (0.2-1.3); Blood Urea Nitrogen 7 mg/dL (9-20); Calcium 7.8 mg/dL (8.4-10.2); Carbon Dioxide 21 mmol/L (22-30); Chloride 103 mmol/L (98-107); Estimated CRCL calculation 106 ml/min; Estimated Glomerular Filt Rate > 60; Glucose 98 mg/dL (65-110); Magnesium 1.9 mg/dL (1.6-2.3); Potassium 3.5 mmol/L (3.4-5.0); Sodium 134 mmol/L (137-145)
[2022-03-15 10:14] LABS: Vancomycin Trough 13.2 ug/mL (10.0-20.0)
--- NOTE | 2022-03-15 11:30 | P.PNIM_ITS ---
Progress Note: A&P Assessment and Plan (1) Severe sepsis: Code(s): A41.9 - Sepsis, unspecified organism; R65.20 - Severe sepsis without septic shock Status: Acute Assessment and Plan: * Meets sepsis criteria with tachycardia, tachypnea, fever, leukocytosis, mental changes * Source of infection is his left foot wound * Lactic acid 1.3 * Blood cultures grew Staphylococcus epidermis, which is likely a contaminate * Wound culture grew Staphylococcus aureus and pseudomonas aeruginosa * Change vanc, cefepime, and Flagyl, levaquin and ancef for now * White blood cells 21.2 upon arrival, currently 15.5 * IV fluids 2L bolus * continuous IV fluid DC'd as the patient is eating and drinking well * Trend labs * Adjust therapy as indicated (2) Cellulitis of foot, left: Code(s): L03.116 - Cellulitis of left lower limb Status: Acute Assessment and Plan: * See above (3) Acute osteomyelitis of foot: Code(s): M86.179 - Other acute osteomyelitis, unspecified ankle and foot Status: Acute Assessment and Plan: * X-rays left foot shows osteomyelitis of the left 3rd and 4th toes * Ortho consulted thank you for your help * Will probably need to be on senior care antibiotics * Wound care consult * Continue recommended dressing changes * ID Pharm Consult * Wound culture Staphylococcus aureus, Pseudomonas aeruginosa * adjust antibiotics to sensitivities * MRI osteomyelitis of the third distal phalanx, and fourth middle distal phalanges, osteitis involving second proximal phalanx an head of second metatarsal, wide spread cellulitis of the forefoot with nonenhancement of much of the soft tissue * Change vanc, cefepime, and Flagyl, to Levaquin and Ancef for now (4) Chronic anemia: Code(s): D64.9 - Anemia, unspecified Status: Acute Assessment and Plan: * Current H/H 9.3/28.5 * Anemia labs iron 11, TIBC 216, % sat 138, ferritin 348, B12 261, folate 6.6 * Supplement as indicated * Initiate ferrous sulfate PO * trend H/H * Transfuse as as indicated (5) Coronary artery disease: Code(s): I25.10 - Atherosclerotic heart disease of [place] coronary artery without angina pectoris Status: Acute Assessment and Plan: * No active chest pain * Continue Jardiance, aspirin, and carvedilol * Telemonitor for now * EKG No significant changes (6) Hypertension: Code(s): I10 - Essential (primary) hypertension Status: Acute Assessment and Plan: * Current BP 122/53 * Continue home carvedilol and lisinopril * Trend BP * adjust therapy as indicated (7) Type 2 diabetes mellitus: Code(s): E11.9 - Type 2 diabetes mellitus without complications Status: Acute Assessment and Plan: * Current glucose 105 * A1c 6.9 * Continue home Jardiance, and lantus * Trend glucose * Hypoglycemia protocol * Accu-cheks AC/HS * ISS * Adjust as indicated (8) Seizure disorder: Code(s): G40.909 - Epilepsy, unspecified, not intractable, without status epilepticus Status: Acute Assessment and Plan: * Continue home medications * Seems to be ok (9) Chronic obstructive pulmonary disease: Code(s): J44.9 - Chronic obstructive pulmonary disease, unspecified Status: Acute Assessment and Plan:
--- NOTE | 2022-03-15 11:30 | PM.IMPN ---
Progress Note: A&P Assessment and Plan (1) Severe sepsis: Code(s): A41.9 - Sepsis, unspecified organism; R65.20 - Severe sepsis without septic shock Status: Acute Assessment and Plan: Meets sepsis criteria with tachycardia, tachypnea, fever, leukocytosis, mental changes Source of infection is his left foot wound Lactic acid 1.3 Blood cultures grew Staphylococcus epidermis, which is likely a contaminate Wound culture grew Staphylococcus aureus and pseudomonas aeruginosa Change vanc, cefepime, and Flagyl, levaquin and ancef for now White blood cells 21.2 upon arrival, currently 15.5 IV fluids 2L bolus continuous IV fluid DC'd as the patient is eating and drinking well Trend labs Adjust therapy as indicated (2) Cellulitis of foot, left: Code(s): L03.116 - Cellulitis of left lower limb Status: Acute Assessment and Plan: See above (3) Acute osteomyelitis of foot: Code(s): M86.179 - Other acute osteomyelitis, unspecified ankle and foot Status: Acute Assessment and Plan: X-rays left foot shows osteomyelitis of the left 3rd and 4th toes Ortho consulted thank you for your help Will probably need to be on halfway antibiotics Wound care consult Continue recommended dressing changes ID Pharm Consult Wound culture Staphylococcus aureus, Pseudomonas aeruginosa adjust antibiotics to sensitivities MRI osteomyelitis of the third distal phalanx, and fourth middle distal phalanges, osteitis involving second proximal phalanx an head of second metatarsal, wide spread cellulitis of the forefoot with nonenhancement of much of the soft tissue Change vanc, cefepime, and Flagyl, to Levaquin and Ancef for now (4) Chronic anemia: Code(s): D64.9 - Anemia, unspecified Status: Acute Assessment and Plan: Current H/H 9.3/28.5 Anemia labs iron 11, TIBC 216, % sat 138, ferritin 348, B12 261, folate 6.6 Supplement as indicated Initiate ferrous sulfate PO trend H/H Transfuse as as indicated (5) Coronary artery disease: Code(s): I25.10 - Atherosclerotic heart disease of [place] coronary artery without angina pectoris Status: Acute Assessment and Plan: No active chest pain Continue Jardiance, aspirin, and carvedilol Telemonitor for now EKG No significant changes (6) Hypertension: Code(s): I10 - Essential (primary) hypertension Status: Acute Assessment and Plan: Current BP 122/53 Continue home carvedilol and lisinopril Trend BP adjust therapy as indicated (7) Type 2 diabetes mellitus: Code(s): E11.9 - Type 2 diabetes mellitus without complications Status: Acute Assessment and Plan: Current glucose 105 A1c 6.9 Continue home Jardiance, and lantus Trend glucose Hypoglycemia protocol Accu-cheks AC/HS ISS Adjust as indicated (8) Seizure disorder: Code(s): G40.909 - Epilepsy, unspecified, not intractable, without status epilepticus Status: Acute Assessment and Plan: Continue home medications Seems to be ok (9) Chronic obstructive pulmonary disease: Code(s): J44.9 - Chronic obstructive pulmonary disease, unspecified Status: Acute Assessment and Plan: Not in acute exacerbation Continue home medications Stable (10) Acute metabolic encephalopathy: Code(s): G93.41 - Metabolic encephalopathy Status: Acute Assessment and Plan: Head CT does not show any acute findings, 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
--- NOTE | 2022-03-15 12:03 | PM.PNORT ---
Progress Note: A&P Assessment and Plan (1) Diabetic foot ulcer: Qualifiers: Diabetic foot ulcer location: toe Diabetes mellitus type: type 2 Laterality: left Non-pressure ulcer stage: with muscle involvement without evidence of necrosis Qualified Code(s): E11.621 - Type 2 diabetes mellitus with foot ulcer; L97.525 - Non-pressure chronic ulcer of other part of left foot with muscle involvement without evidence of necrosis Code(s): E11.621 - Type 2 diabetes mellitus with foot ulcer; L97.509 - Non-pressure chronic ulcer of other part of unspecified foot with unspecified severity Status: Acute Assessment and Plan: Wound on the plantar aspect of the left foot which measures 1.0 x 0.5 x 1.5 cm with tunneling at the 12 o'clock position towards the 2nd metatarsal to 2 cm and now between the 1st and 2nd interspace of the left foot. Still unable to palpate bone. Hallux with continued improvement in swelling and erythema. Small dorsal ulcer over the MTP joint which measures 0.5 x 0.2 x 0.2 cm, now with scab. Mild malodor noted. MRI of the left foot revealed reactive changes at the 2nd metatarsophalangeal joint which may be early osteomyelitis versus cellulitis with reactive osteitis. Changes seen on the radiographs/MRI at the distal 3rd and 4th toe as well as on the MRI. Do not correlate with the clinical picture as there is no swelling, erythema or skin break at the 3rd or 4th toe. May be auto necrosis due to poor blood flow and neuropathy. Wound cultures with staph and Pseudomonas aeruginosa. Initial blood cultures revealed staphylococcus epidermis. Continue IV antibiotics under the direction of the medicine team and PharmID. Continue daily dressing changes with Aquacel AG rope and cover dry. Patient may require operative treatment for debridement. May also need debridement of the 2nd metatarsophalangeal joint. Will await evaluation by Dr. Flower to determine final plan of care. Continue current care. (2) Bacteremia: Code(s): R78.81 - Bacteremia Status: Acute (3) Severe sepsis: Code(s): A41.9 - Sepsis, unspecified organism; R65.20 - Severe sepsis without septic shock Status: Acute Assessment and Plan: IV antibiotics continued. (4) Cellulitis of foot, left: Code(s): L03.116 - Cellulitis of left lower limb Status: Acute Assessment and Plan: IV antibiotics continued. (5) Acute osteomyelitis of foot: Code(s): M86.179 - Other acute osteomyelitis, unspecified ankle and foot Status: Acute Subjective Subjective Date/Time Seen: 03/15/22 12:03 Interval history: Patient states he feels generally unwell. No complaints of pain to the left foot. Review of Systems Review of Systems: All systems reviewed & are unremarkable except as noted in HPI and below (HPI ) Exam Const: General: comfortable and no acute distress HENMT: Mouth: Yes moist mucous membranes Eyes: General: appearance normal, both eyes and all related structures Neck: Neck: supple and no JVD Resp: Effort & Inspection: normal respiratory effort Cardio: Rate: regular rate Rhythm: regular rhythm GI: Inspection: non-distended GI Palp: Yes Soft to palpation and No Tenderness to palpation present (GI) Neuro: General: gait normal Speech: normal speech Extrem: Right lower extremity: foot ( no open wounds, sluggish capillary refill. No erythema or swelling. ) Details: motor-sensory exam Details: light-touch abnormal Left lower extremity: foot ( Yellow thickened toenails) Details: toes with normal ROM, warmth, edema ( entire foot, 4+ pitting edema), vascular exam Details: dorsalis pedis pulse present ( unable to be palpated, required Doppler) and abnormal capillary refill Location: of all toes and motor-sensory exam light-touch abnormal ( to ankle) in all toes; no tenderness ( neuropathic) Other: Wound on the plantar aspect of the left foot at the 2nd metatarsal measures 1.0
[2022-03-15 12:20] LABS: Glucose Point of Care 114 mg/dl (65-105)
--- NOTE | 2022-03-15 12:29 | WPDUROPN2 ---
Progress Note: A&P Assessment and Plan (1) Urethral stricture: Code(s): N35.919 - Unspecified urethral stricture, male, unspecified site Status: Acute Assessment and Plan: Dilated to a 22fr on 03/11/[address] Hinojosa. Ok to remove saldaña and do a voiding trial today. Bladder scan after first void and call with results. (2) Retention of urine: Code(s): R33.9 - Retention of urine, unspecified Status: Acute Assessment and Plan: Continue Flomax and Finasteride d/t BPH which was likely also contributing to retention. (3) Difficult Saldaña catheter placement: Code(s): T83.9XXA - Unspecified complication of genitourinary prosthetic device, implant and graft, initial encounter Status: Acute Subjective Subjective Date/Time Seen: 03/15/22 12:29 S/P Cystoscopy with urethral dilation to 22F. Patient doing well, urine is clear. Will do a voiding trial today. Post Op day: 4 Review of Systems Respiratory: Respiratory: Reports no additional respiratory complaints Gastrointestinal: Gastrointestinal: Denies abdominal pain, Denies nausea and Denies vomiting Genitourinary: Genitourinary: Denies hematuria and Denies flank pain Exam Const: General: cooperative Resp: Effort & Inspection: normal respiratory effort Cardio: Rate: regular rate GI: GI Palp: Yes Soft to palpation and No Tenderness to palpation present (GI) : General: Yes no CVA tenderness Extrem: Right lower extremity: no edema Left lower extremity: no edema Objective Data Vital Signs Vital Signs: Vital Signs - 24 hr 03/14/22 14:00 03/14/22 16:00 03/14/22 19:31 Temperature 99 F 98.3 F Pulse Rate 79 73 82 Respiratory Rate 20 18 Blood Pressure 113/58 L 114/55 L Pulse Oximetry 96 96 Oxygen Delivery 03/14/22 21:44 03/15/22 03:12 03/14/22 20:00 Temperature 97.9 F Pulse Rate 85 60 77 Respiratory Rate 17 Blood Pressure 122/53 L Pulse Oximetry 93 Oxygen Delivery 03/15/22 00:00 03/15/22 04:00 03/15/22 08:14 Temperature Pulse Rate 81 72 72 Respiratory Rate Blood Pressure Pulse Oximetry Oxygen Delivery 03/15/22 08:25 03/15/22 08:00 03/15/22 09:40 Temperature Pulse Rate 89 Respiratory Rate Blood Pressure Pulse Oximetry 94 Oxygen Delivery Room Air Room Air 03/15/22 12:00 Temperature Pulse Rate 83 Respiratory Rate Blood Pressure Pulse Oximetry Oxygen Delivery Intake/Output Intake/Output: Intake & Output 03/12/22 03/13/22 03/14/22 03/15/22 23:59 23:59 23:59 23:59 Intake Total 3370 3990 2940 1750 Output Total 4275 3400 2875 2800 Balance -905 590 65 -1050 Meds/Results Medications: Active Medications Generic Name Dose Route Start Last Admin Trade Name Freq PRN Reason Stop Dose Admin Acetaminophen 650 mg 03/12/22 21:33 03/15/22 09:56 Acetaminophen 325 Mg Tablet PO 650 mg Q4H PRN Administration Mild Pain (1-3) or Fever Albuterol 1 puff 03/11/22 07:50 Albuterol Sulfate (*Sp) Aerosol 1 Puff INHALATION QIDRT PRN Shortness Of Breath Aspirin 81 mg 03/11/22 09:00 03/15/22 08:15 Aspirin 81 Mg Enteric Tablet PO 81 mg DAILY LEAH Administration Atorvastatin Calcium 40 mg 03/11/22 09:00 03/15/22 08:15 Atorvastatin 40 Mg Tablet PO 40 mg DAILY LEAH Administration Carbamazepine 200 mg 03/11/22 14:00 03/15/22 06:13 Carbamazepine 200 Mg Tablet PO 200 mg Q8HR LEAH Administration Carvedilol 3.125 mg 03/11/22 09:00 03/15/22 08:14 Carvedilol 3.125 Mg Tablet PO 3.125 mg Q12HR LEAH Administration Dextrose 12.5 gm 03/11/22 02:45 Dextrose 50% 25 Gm/50 Ml Syringe IV PUSH PRN PRN Hypoglycemia Protocol Empagliflozin 10 mg 03/11/22 09:00 03/15/22 08:14 Empagliflozin 10 Mg Tablet PO 10 mg DAILY LEAH Administration Enoxaparin Sodium 40 mg 03/11/22 09:00 03/15/22 08:15 Enoxaparin 40 Mg/0.4 Ml Syringe SUB-Q 40 mg DAILY LEAH Adm
--- NOTE | 2022-03-15 14:19 | PCPTNOTE ---
Attempted to see patient for PT this afternoon, however patient with OT for treatment. PT will continue to follow per plan of care.
[2022-03-15] MEDS: ceFAZolin 2 GM/D5W 50 ML 2 GM/50 ML BAG IVPB ×2 (16:05→21:08)
[2022-03-15 17:00] LABS: Glucose Point of Care 140 mg/dl (65-105)
[2022-03-15] MEDS: ALBUTEROL SULFATE (*SP) AEROSOL 1 PUFF INHALATION (17:49)
[2022-03-15] MEDS: INSULIN GLARGINE (*BKC) 100 UNITS/ML 45 UNITS SUB-Q (21:18)
[2022-03-15 21:21] LABS: Glucose Point of Care 135 mg/dl (65-105)
[2022-03-15] MEDS: ONDANSETRON INJ 4 MG/2 ML VIAL IV PUSH (21:24)
[2022-03-16] VITALS (12 sets, daily range): BP systolic 116–137; BP diastolic 59–72; PULSE 78–92; RESP 14–21; TEMP 36.2–36.9; O2SAT 92–100
[2022-03-16] MEDS: ceFAZolin 2 GM/D5W 50 ML 2 GM/50 ML BAG IVPB ×3 (05:44→22:17)
[2022-03-16] MEDS: carBAMazepine 200 MG TABLET PO ×3 (05:45→22:18)
[2022-03-16] MEDS: CALCIUM CARBONATE (TUMS) 500 MG (200 MG ELEMENTAL) PO ×2 (06:20→17:18)
[2022-03-16] MEDS: ONDANSETRON INJ 4 MG/2 ML VIAL IV PUSH ×2 (06:32→13:12)
[2022-03-16 08:04] LABS: Alanine Aminotransferase 24 U/L (6-50); Alkaline Phosphatase 105 U/L (38-126); Anion Gap 10 mmol/L (8-16); Aspartate Amino Transferase 33 U/L (17-59); Bilirubin,Total 0.2 mg/dL (0.2-1.3); Blood Urea Nitrogen 7 mg/dL (9-20); Carbon Dioxide 22 mmol/L (22-30); Chloride 103 mmol/L (98-107); Estimated CRCL calculation 138 ml/min; Estimated Glomerular Filt Rate > 60; Glucose 116 mg/dL (65-110); Magnesium 1.8 mg/dL (1.6-2.3); Potassium 3.5 mmol/L (3.4-5.0); Sodium 135 mmol/L (137-145)
[2022-03-16 08:09] LABS: Glucose Point of Care 119 mg/dl (65-105)
--- NOTE | 2022-03-16 08:22 | PM.PNORT ---
Progress Note: A&P Assessment and Plan (1) Diabetic foot ulcer: Qualifiers: Diabetic foot ulcer location: toe Diabetes mellitus type: type 2 Laterality: left Non-pressure ulcer stage: with muscle involvement without evidence of necrosis Qualified Code(s): E11.621 - Type 2 diabetes mellitus with foot ulcer; L97.525 - Non-pressure chronic ulcer of other part of left foot with muscle involvement without evidence of necrosis Code(s): E11.621 - Type 2 diabetes mellitus with foot ulcer; L97.509 - Non-pressure chronic ulcer of other part of unspecified foot with unspecified severity Status: Acute Assessment and Plan: Wound on the plantar aspect of the left foot which measures 1.0 x 0.5 x 1.5 cm with tunneling at the 12 o'clock position towards the 2nd metatarsal to 2 cm and now between the 1st and 2nd interspace of the left foot. Still unable to palpate bone. Hallux with continued improvement in swelling and erythema. Small dorsal ulcer over the MTP joint which measures 0.5 x 0.2 x 0.2 cm, now with scab. Mild malodor noted. MRI of the left foot revealed reactive changes at the 2nd metatarsophalangeal joint which may be early osteomyelitis versus cellulitis with reactive osteitis. Changes seen on the radiographs/MRI at the distal 3rd and 4th toe as well as on the MRI. Do not correlate with the clinical picture as there is no swelling, erythema or skin break at the 3rd or 4th toe. May be auto necrosis due to poor blood flow and neuropathy. Wound cultures with staph and Pseudomonas aeruginosa. Initial blood cultures revealed staphylococcus epidermis. Continue IV antibiotics under the direction of the medicine team and PharmID. Continue daily dressing changes with Aquacel AG rope and cover dry. Left foot continues to show improvement with IV antibiotic and local wound care. Recommend continue with same. No operative plans at this time. Regard to left foot may be discharged when medically stable. Recommend fracture boot at time of discharge. (2) Bacteremia: Code(s): R78.81 - Bacteremia Status: Acute (3) Severe sepsis: Code(s): A41.9 - Sepsis, unspecified organism; R65.20 - Severe sepsis without septic shock Status: Acute Assessment and Plan: IV antibiotics continued. (4) Cellulitis of foot, left: Code(s): L03.116 - Cellulitis of left lower limb Status: Acute Assessment and Plan: IV antibiotics continued. (5) Acute osteomyelitis of foot: Code(s): M86.179 - Other acute osteomyelitis, unspecified ankle and foot Status: Acute Subjective Subjective Date/Time Seen: 03/16/22 08:22 Principal diagnosis: Left diabetic foot ulcer Interval history: patient resting comfortably. Awakens to voice. No new complaints. Review of Systems Constitutional: Constitutional: Denies fever(s) Eyes: Eyes: Denies blurry vision ENT: Reports Normal hearing present Cardiovascular: Cardiovascular: Denies chest pain and Denies dyspnea Respiratory: Respiratory: Denies dyspnea and Denies wheezing Gastrointestinal: Gastrointestinal: Denies abdominal pain Genitourinary: Genitourinary: Denies urinary urgency Musculoskeletal: Musculoskeletal: Reports as per HPI and Denies numbness Integumentary/Breasts: Skin/Breast: Denies changing lesions and Denies sores Neurologic: Reports Normal hearing present, Denies behavioral changes, Denies confusion, Denies numbness and Denies convulsions Psychiatric: Psychiatric: Denies behavioral changes, Denies confusion and Denies hallucinations Endocrine: Endocrine: Denies heat intolerance Hematologic/Lymphatic: Hematologic/Lymphatic: Denies easy bleeding Allergic/Immunologic: Allergic/Immunologic: Denies wheezing Exam Const: General: comfortable and no acute distress HENMT: Mouth: Yes moist mucous membranes Eyes: General: appearance normal, both eyes and all related structures Neck: Neck: supple and
[2022-03-16 08:23] LABS: Basophils Absolute Auto 0.1 K/mm3 (0.0-0.1); Basophils Percent Auto 0.3 % (0.2-1.2); Eosinophils Absolute Auto 0.4 K/mm3 (0-0.3); Eosinophils Percent Auto 2.1 % (0-4.4); Hematocrit 26.7 % (42.0-52.0); Hemoglobin 8.8 g/dL (14.0-18.0); Immature Granulocyte Absolute 0.16 K/mm3 (0.00-0.031); Immature Granulocyte Percent A 0.9 % (0-0.5); Lymphocytes Absolute Auto 1.04 K/mm3 (0.9-3.2); Mean Corpuscular Hemoglobin 31.4 pg (26-34); Mean Corpuscular Volume 95.4 fl (80-100); Mean Platelet Volume 10.2 fl (7.4-10.4); Monocytes Absolute Auto 1.9 K/mm3 (0.1-0.6); Monocytes Percent Auto 10.8 % (2.6-8.5); Neutrophils Absolute Auto 13.8 K/mm3 (1.3-6.7); Neutrophils Percent Auto 79.9 % (45.5-73.1); Platelet Count Result 541 k/mm3 (150-375); Red Cell Distribution Width 13.7 % (11.5-14.5); White Blood Count 17.3 K/mm3 (4.5-10.0)
[2022-03-16] MEDS: ASPIRIN 81 MG ENTERIC TABLET PO (08:34)
[2022-03-16] MEDS: carvediloL 3.125 MG TABLET PO ×2 (08:34→20:26)
[2022-03-16] MEDS: ATORVASTATIN 40 MG TABLET PO (08:34)
[2022-03-16] MEDS: EMPAGLIFLOZIN 10 MG TABLET PO (08:35)
[2022-03-16] MEDS: FENOFIBRATE 160 MG TABLET PO (08:35)
[2022-03-16] MEDS: ENOXAPARIN 40 MG/0.4 ML SYRINGE SUB-Q (08:35)
[2022-03-16] MEDS: FINASTERIDE 5 MG TABLET PO (08:35)
[2022-03-16] MEDS: lisinopriL 5 MG TABLET PO (08:35)
[2022-03-16] MEDS: OLANZapine 5 MG TABLET 10 MG PO ×2 (08:35→20:26)
[2022-03-16] MEDS: TAMSULOSIN HCL 0.4 MG CAPSULE PO (08:35)
--- NOTE | 2022-03-16 10:12 | PCOTNOTE ---
Attempted to see patient for OT, patient sleeping upon entry with nose sitting on tray table. Patient encouraged to participate with therapy for improved strength and wellness, patient reports not sleeping last night and requested therapist try again later to see patient. Patient told no opportunities to return to see patient likely this PM due to caseload and again encouraged patient to participate in therapy at this time. Patient continued to refuse and was assisted to reposition for improved comfort in bed. Will attempt to see patient this PM and continue plan of care for OT.
[2022-03-16] MEDS: SODIUM CHLORIDE 0.9% IV 1,000 ML 100 ML IV CONT (10:27)
--- NOTE | 2022-03-16 10:27 | PCPTNOTE ---
Patient refused treatment this session. Patient reported he did not sleep good last night and that he is not doing anything today. Gave patient encouragement to participate, patient continued to refuse.
--- NOTE | 2022-03-16 11:30 | P.PNIM_ITS ---
Progress Note: A&P Assessment and Plan (1) Severe sepsis: Code(s): A41.9 - Sepsis, unspecified organism; R65.20 - Severe sepsis without septic shock Status: Acute Assessment and Plan: * Meets sepsis criteria with tachycardia, tachypnea, fever, leukocytosis, mental changes * Source of infection is his left foot wound * Lactic acid 1.3 * Blood cultures grew Staphylococcus epidermis, which is likely a contaminate * Wound culture grew Staphylococcus aureus and pseudomonas aeruginosa * Continue levaquin and ancef for now * White blood cells 21.2 upon arrival, currently 17.3 * Trend labs * Adjust therapy as indicated * Will need adjunct faculty for medical terminology antibiotics (2) Cellulitis of foot, left: Code(s): L03.116 - Cellulitis of left lower limb Status: Acute Assessment and Plan: * See above (3) Acute osteomyelitis of foot: Code(s): M86.179 - Other acute osteomyelitis, unspecified ankle and foot Status: Acute Assessment and Plan: * X-rays left foot shows osteomyelitis of the left 3rd and 4th toes * Ortho consulted thank you for your help * Will probably need to be on custodial antibiotics * Wound care consult * Continue recommended dressing changes * ID Pharm Consult * Wound culture Staphylococcus aureus, Pseudomonas aeruginosa * adjust antibiotics to sensitivities * MRI osteomyelitis of the third distal phalanx, and fourth middle distal phalanges, osteitis involving second proximal phalanx an head of second metatarsal, wide spread cellulitis of the forefoot with nonenhancement of much of the soft tissue * Continue Levaquin and Ancef for now (4) Chronic anemia: Code(s): D64.9 - Anemia, unspecified Status: Acute Assessment and Plan: * Current H/H 8.8/26.7 * Anemia labs iron 11, TIBC 216, % sat 138, ferritin 348, B12 261, folate 6.6 * Supplement as indicated * Initiate ferrous sulfate PO * trend H/H * Transfuse as as indicated (5) Coronary artery disease: Code(s): I25.10 - Atherosclerotic heart disease of [place] coronary artery without angina pectoris Status: Acute Assessment and Plan: * No active chest pain * Continue Jardiance, aspirin, and carvedilol * Telemonitor for now * EKG No significant changes (6) Hypertension: Code(s): I10 - Essential (primary) hypertension Status: Acute Assessment and Plan: * Current BP 124/61 * Continue home carvedilol and lisinopril * Trend BP * adjust therapy as indicated (7) Type 2 diabetes mellitus: Code(s): E11.9 - Type 2 diabetes mellitus without complications Status: Acute Assessment and Plan: * Current glucose 116 * A1c 6.9 * Continue home Jardiance, and lantus * Trend glucose * Hypoglycemia protocol * Accu-cheks AC/HS * ISS * Adjust as indicated (8) Seizure disorder: Code(s): G40.909 - Epilepsy, unspecified, not intractable, without status epilepticus Status: Acute Assessment and Plan: * Continue home medications * Seems to be ok (9) Chronic obstructive pulmonary disease: Code(s): J44.9 - Chronic obstructive pulmonary disease, unspecified Status: Acute Assessment and Plan: * Not in acute exacerbation * Continue home medications * Stable (10) Acu
--- NOTE | 2022-03-16 11:30 | PM.IMPN ---
Progress Note: A&P Assessment and Plan (1) Severe sepsis: Code(s): A41.9 - Sepsis, unspecified organism; R65.20 - Severe sepsis without septic shock Status: Acute Assessment and Plan: Meets sepsis criteria with tachycardia, tachypnea, fever, leukocytosis, mental changes Source of infection is his left foot wound Lactic acid 1.3 Blood cultures grew Staphylococcus epidermis, which is likely a contaminate Wound culture grew Staphylococcus aureus and pseudomonas aeruginosa Continue levaquin and ancef for now White blood cells 21.2 upon arrival, currently 17.3 Trend labs Adjust therapy as indicated Will need retirement antibiotics (2) Cellulitis of foot, left: Code(s): L03.116 - Cellulitis of left lower limb Status: Acute Assessment and Plan: See above (3) Acute osteomyelitis of foot: Code(s): M86.179 - Other acute osteomyelitis, unspecified ankle and foot Status: Acute Assessment and Plan: X-rays left foot shows osteomyelitis of the left 3rd and 4th toes Ortho consulted thank you for your help Will probably need to be on machine long goods helper antibiotics Wound care consult Continue recommended dressing changes ID Pharm Consult Wound culture Staphylococcus aureus, Pseudomonas aeruginosa adjust antibiotics to sensitivities MRI osteomyelitis of the third distal phalanx, and fourth middle distal phalanges, osteitis involving second proximal phalanx an head of second metatarsal, wide spread cellulitis of the forefoot with nonenhancement of much of the soft tissue Continue Levaquin and Ancef for now (4) Chronic anemia: Code(s): D64.9 - Anemia, unspecified Status: Acute Assessment and Plan: Current H/H 8.8/26.7 Anemia labs iron 11, TIBC 216, % sat 138, ferritin 348, B12 261, folate 6.6 Supplement as indicated Initiate ferrous sulfate PO trend H/H Transfuse as as indicated (5) Coronary artery disease: Code(s): I25.10 - Atherosclerotic heart disease of [place] coronary artery without angina pectoris Status: Acute Assessment and Plan: No active chest pain Continue Jardiance, aspirin, and carvedilol Telemonitor for now EKG No significant changes (6) Hypertension: Code(s): I10 - Essential (primary) hypertension Status: Acute Assessment and Plan: Current BP 124/61 Continue home carvedilol and lisinopril Trend BP adjust therapy as indicated (7) Type 2 diabetes mellitus: Code(s): E11.9 - Type 2 diabetes mellitus without complications Status: Acute Assessment and Plan: Current glucose 116 A1c 6.9 Continue home Jardiance, and lantus Trend glucose Hypoglycemia protocol Accu-cheks AC/HS ISS Adjust as indicated (8) Seizure disorder: Code(s): G40.909 - Epilepsy, unspecified, not intractable, without status epilepticus Status: Acute Assessment and Plan: Continue home medications Seems to be ok (9) Chronic obstructive pulmonary disease: Code(s): J44.9 - Chronic obstructive pulmonary disease, unspecified Status: Acute Assessment and Plan: Not in acute exacerbation Continue home medications Stable (10) Acute metabolic encephalopathy: Code(s): G93.41 - Metabolic encephalopathy Status: Acute Assessment and Plan: Head CT does not show any acute findings, does show some old infarcts Probably related to infection Has a foot wound WBC elevated at 21.1 upon admission, current 17.3 continue to trend mental status Wound culture has multiple organisms growing Not getting better nor is this getting worse He knows where he is and who he is, however he does not know why he is here (11) Diabetic foot ulcer: Qualifiers: Diabetes mellitus type: type 2 Diabetic foot ulcer location: toe L
[2022-03-16 12:14] LABS: Glucose Point of Care 107 mg/dl (65-105)
[2022-03-16] MEDS: ACETAMINOPHEN 325 MG TABLET 650 MG PO ×2 (13:12→20:25)
[2022-03-16 17:13] LABS: Glucose Point of Care 78 mg/dl (65-105)
[2022-03-16] MEDS: INSULIN GLARGINE (*BKC) 100 UNITS/ML 45 UNITS SUB-Q (20:28)
[2022-03-16 20:42] LABS: Glucose Point of Care 142 mg/dl (65-105)
[2022-03-17] VITALS (12 sets, daily range): BP systolic 121–134; BP diastolic 60–74; PULSE 68–85; RESP 18–20; TEMP 36.3–36.6; O2SAT 92–98
[2022-03-17] MEDS: ACETAMINOPHEN 325 MG TABLET 650 MG PO ×2 (01:00→04:59)
[2022-03-17 01:31] LABS: Carbamazepine Tegretol 5.7 mcg/mL (4.0-12.0)
[2022-03-17 04:53] LABS: Basophils Absolute Auto 0.1 K/mm3 (0.0-0.1); Basophils Percent Auto 0.3 % (0.2-1.2); Eosinophils Absolute Auto 0.4 K/mm3 (0-0.3); Eosinophils Percent Auto 2.7 % (0-4.4); Hematocrit 28.6 % (42.0-52.0); Hemoglobin 9.3 g/dL (14.0-18.0); Immature Granulocyte Percent A 1.3 % (0-0.5); Lymphocytes Absolute Auto 1.97 K/mm3 (0.9-3.2); Lymphocytes Percent Auto 13.1 % (18.3-44.2); Mean Corpuscular HGB Conc 32.5 g/dl (32-36); Mean Corpuscular Volume 98.3 fl (80-100); Mean Platelet Volume 9.8 fl (7.4-10.4); Monocytes Absolute Auto 1.7 K/mm3 (0.1-0.6); Monocytes Percent Auto 11.6 % (2.6-8.5); Neutrophils Absolute Auto 10.7 K/mm3 (1.3-6.7); Platelet Count Result 555 k/mm3 (150-375); Red Blood Count 2.91 M/mm3 (4.6-6.20); Red Cell Distribution Width 13.7 % (11.5-14.5)
[2022-03-17 05:12] LABS: Alanine Aminotransferase 25 U/L (6-50); Albumin Level 3.1 g/dL (3.5-5.1); Alkaline Phosphatase 104 U/L (38-126); Anion Gap 9 mmol/L (8-16); Aspartate Amino Transferase 39 U/L (17-59); Bilirubin,Total 0.2 mg/dL (0.2-1.3); Blood Urea Nitrogen 5 mg/dL (9-20); Calcium 8.5 mg/dL (8.4-10.2); Carbon Dioxide 24 mmol/L (22-30); Chloride 104 mmol/L (98-107); Estimated CRCL calculation 106 ml/min; Estimated Glomerular Filt Rate > 60; Glucose 70 mg/dL (65-110); Potassium 3.6 mmol/L (3.4-5.0); Sodium 137 mmol/L (137-145)
[2022-03-17] MEDS: ceFAZolin 2 GM/D5W 50 ML 2 GM/50 ML BAG IVPB ×3 (05:30→22:27)
[2022-03-17] MEDS: carBAMazepine 200 MG TABLET PO ×3 (05:31→20:58)
--- NOTE | 2022-03-17 08:33 | PM.IMPN ---
Progress Note: A&P Assessment and Plan (1) Severe sepsis: Code(s): A41.9 - Sepsis, unspecified organism; R65.20 - Severe sepsis without septic shock Status: Acute Assessment and Plan: Resolved, place PICC line, continue Levaquin and Ancef (2) Cellulitis of foot, left: Code(s): L03.116 - Cellulitis of left lower limb Status: Acute Assessment and Plan: as above (3) Acute osteomyelitis of foot: Code(s): M86.179 - Other acute osteomyelitis, unspecified ankle and foot Status: Acute Assessment and Plan: Appreciate orthopedic surgery consultation, infectious disease pharmacist consult as well, PICC line being placed for long-term antibiotics, will need to follow up with Orthopedics versus podiatry outpatient for debridement and possible surgical intervention if necessary (4) Chronic anemia: Code(s): D64.9 - Anemia, unspecified Status: Acute Assessment and Plan: Iron deficiency anemia, continue ferrous sulfate, stable (5) Coronary artery disease: Code(s): I25.10 - Atherosclerotic heart disease of [place] coronary artery without angina pectoris Status: Acute Assessment and Plan: Stable, continue current management (6) Hypertension: Code(s): I10 - Essential (primary) hypertension Status: Acute Assessment and Plan: Stable, continue current management (7) Type 2 diabetes mellitus: Code(s): E11.9 - Type 2 diabetes mellitus without complications Status: Acute Assessment and Plan: Controlled, continue current management (8) Seizure disorder: Code(s): G40.909 - Epilepsy, unspecified, not intractable, without status epilepticus Status: Acute Assessment and Plan: Stable on no medications (9) Chronic obstructive pulmonary disease: Code(s): J44.9 - Chronic obstructive pulmonary disease, unspecified Status: Acute Assessment and Plan: Stable (10) Acute metabolic encephalopathy: Code(s): G93.41 - Metabolic encephalopathy Status: Acute Assessment and Plan: Improving, likely secondary to osteomyelitis, essentially resolved, reassess tomorrow (11) Diabetic foot ulcer: Qualifiers: Diabetic foot ulcer location: toe Diabetes mellitus type: type 2 Laterality: left Non-pressure ulcer stage: with muscle involvement without evidence of necrosis Qualified Code(s): E11.621 - Type 2 diabetes mellitus with foot ulcer; L97.525 - Non-pressure chronic ulcer of other part of left foot with muscle involvement without evidence of necrosis Code(s): E11.621 - Type 2 diabetes mellitus with foot ulcer; L97.509 - Non-pressure chronic ulcer of other part of unspecified foot with unspecified severity Status: Acute Assessment and Plan: Stable (12) BPH (benign prostatic hyperplasia): Code(s): N40.0 - Benign prostatic hyperplasia without lower urinary tract symptoms Status: Acute Assessment and Plan: Osorio removed, voiding okay (13) Bacteremia: Code(s): R78.81 - Bacteremia Status: Acute Assessment and Plan: Continue IV antibiotics, follow-up repeat blood cultures Plan DVT prophylaxis with SCDs GI prophylaxis not indicated Code status full code Subjective Date/time seen: 03/17/22 08:33 Interval history: Patient resting comfortably, here to go home. No complaints. No overnight events noted. No chest pain or shortness of breath. No nausea, vomiting or diarrhea. No fevers or chills. Review of Systems Review of Systems: No overnight events noted. No chest pain or shortness of breath. No nausea, vomiting or diarrhea. No fevers or chills. Exam Narrative: General: No acute distress, alert and oriented per baseline HEENT: Atraumatic, normocephalic, mucous membranes moist CV: Regular rate and rhythm, S1, S2 Lungs: [place]
[2022-03-17 09:35] LABS: Glucose Point of Care 98 mg/dl (65-105)
[2022-03-17] MEDS: OLANZapine 5 MG TABLET 10 MG PO ×2 (09:52→20:58)
[2022-03-17] MEDS: ATORVASTATIN 40 MG TABLET PO (09:52)
[2022-03-17] MEDS: TAMSULOSIN HCL 0.4 MG CAPSULE PO (09:53)
[2022-03-17] MEDS: FENOFIBRATE 160 MG TABLET PO (09:53)
[2022-03-17] MEDS: ASPIRIN 81 MG ENTERIC TABLET PO (09:53)
[2022-03-17] MEDS: EMPAGLIFLOZIN 10 MG TABLET PO (09:53)
[2022-03-17] MEDS: FINASTERIDE 5 MG TABLET PO (09:53)
[2022-03-17] MEDS: lisinopriL 5 MG TABLET PO (09:53)
[2022-03-17] MEDS: carvediloL 3.125 MG TABLET PO ×2 (09:53→20:57)
[2022-03-17] MEDS: ENOXAPARIN 40 MG/0.4 ML SYRINGE SUB-Q (09:55)
[2022-03-17 11:56] LABS: Glucose Point of Care 87 mg/dl (65-105)
--- NOTE | 2022-03-17 14:59 | PC.NURSE ---
On 03/17/22, the student, [Anastasiia Ruvalcaba], provided care and completed [facility] documentation on this patient. I have reviewed the student's documentation and agree with the findings.
[2022-03-17] MEDS: CALCIUM CARBONATE (TUMS) 500 MG (200 MG ELEMENTAL) PO (15:07)
[2022-03-17] MEDS: HYDROcodone/acetaminophen (*CRX) 5-325 MG TABLET 1 TAB PO (16:07)
[2022-03-17 16:48] LABS: Glucose Point of Care 87 mg/dl (65-105)
[2022-03-17] MEDS: LIDOCAINE 5% PATCH 1 PATCH TRANSDERM (17:17)
[2022-03-17 20:57] LABS: Glucose Point of Care 128 mg/dl (65-105)
[2022-03-17] MEDS: INSULIN GLARGINE (*BKC) 100 UNITS/ML 45 UNITS SUB-Q (20:58)
[2022-03-18] VITALS (9 sets, daily range): BP systolic 115–123; BP diastolic 63–74; PULSE 72–85; RESP 16–18; TEMP 36.6–36.9; O2SAT 94–98
[2022-03-18] MEDS: ceFAZolin 2 GM/D5W 50 ML 2 GM/50 ML BAG IVPB ×3 (05:47→23:49)
[2022-03-18] MEDS: carBAMazepine 200 MG TABLET PO ×3 (05:48→23:49)
--- NOTE | 2022-03-18 07:08 | WPDUROPN2 ---
Progress Note: A&P Assessment and Plan (1) Urethral stricture: Code(s): N35.919 - Unspecified urethral stricture, male, unspecified site Status: Acute Assessment and Plan: Voiding well after dilatation tight urethral stricture. No need for f/u with us after discharge from hospital. Subjective Subjective Date/Time Seen: 03/18/22 07:08 V[place] very well, no complaints Review of Systems Cardiovascular: Cardiovascular: Denies chest pain, Denies lightheadedness, Denies palpitations and Denies dyspnea Respiratory: Respiratory: Denies dyspnea Gastrointestinal: Gastrointestinal: Denies diarrhea, Denies nausea and Denies vomiting Genitourinary: Genitourinary: Denies hematuria and Denies dysuria Endocrine: Endocrine: Denies palpitations Exam Const: General: no acute distress Resp: Effort & Inspection: normal respiratory effort GI: Inspection: non-distended GI Palp: No abdominal tenderness and No Guarding due to palpation present (GI) Auscultation: normal bowel sounds Objective Data Vital Signs Vital Signs: Vital Signs - 24 hr 03/17/22 07:31 03/17/22 08:30 03/17/22 09:53 Temperature 97.3 F L 97.8 F Pulse Rate 69 84 68 Respiratory Rate 20 19 Blood Pressure 121/60 131/74 Pulse Oximetry 98 92 Oxygen Delivery 03/17/22 08:35 03/17/22 08:00 03/17/22 12:00 Temperature Pulse Rate 70 84 Respiratory Rate Blood Pressure Pulse Oximetry Oxygen Delivery Room Air 03/17/22 13:54 03/17/22 16:00 03/17/22 20:57 Temperature 98 F Pulse Rate 81 84 84 Respiratory Rate 20 Blood Pressure 134/71 Pulse Oximetry 98 Oxygen Delivery 03/17/22 21:33 03/17/22 20:00 03/18/22 00:00 Temperature 97.7 F Pulse Rate 85 84 85 Respiratory Rate 18 Blood Pressure 130/72 Pulse Oximetry 97 Oxygen Delivery 03/18/22 04:00 03/18/22 06:14 Temperature 97.8 F Pulse Rate 81 72 Respiratory Rate 16 Blood Pressure 119/63 Pulse Oximetry 94 Oxygen Delivery Intake/Output Intake/Output: Intake & Output 03/15/22 03/16/22 03/17/22 03/18/22 23:59 23:59 23:59 23:59 Intake Total 4830 2250 1950 300 Output Total 3900 3000 1500 1400 Balance 930 -750 450 -1100 Meds/Results Medications: Active Medications Generic Name Dose Route Start Last Admin Trade Name Freq PRN Reason Stop Dose Admin Acetaminophen 650 mg 03/12/22 21:33 03/17/22 04:59 Acetaminophen 325 Mg Tablet PO 650 mg Q4H PRN Administration Mild Pain (1-3) or Fever Hydrocodone Bitart/Acetaminophen 1 tab 03/17/22 15:55 03/17/22 16:07 Hydrocodone/Acetaminophen (*Crx) 5-325 Mg Tablet PO 1 tab Q6H PRN Administration Pain Rated 4-10 Albuterol 1 puff 03/11/22 07:50 03/15/22 17:49 Albuterol Sulfate (*Sp) Aerosol 1 Puff INHALATION 1 puff QIDRT PRN Administration Shortness Of Breath Aspirin 81 mg 03/11/22 09:00 03/17/22 09:53 Aspirin 81 Mg Enteric Tablet PO 81 mg DAILY LEAH Administration Atorvastatin Calcium 40 mg 03/11/22 09:00 03/17/22 09:52 Atorvastatin 40 Mg Tablet PO 40 mg DAILY LEAH Administration Calcium Carbonate 200 mg 03/15/22 23:44 03/17/22 15:07 Calcium Carbonate (Tums) 500 Mg (200 Mg Elemental) PO 200 mg Q6H PRN Administration Indigestion Carbamazepine 200 mg 03/11/22 14:00 03/18/22 05:48 Carbamazepine 200 Mg Tablet PO 200 mg Q8HR LEAH Administration Carvedilol 3.125 mg 03/11/22 09:00 03/17/22 20:57 Carvedilol 3.125 Mg Tablet PO 3.125 mg Q12HR LEAH Administration Dextrose 12.5 gm 03/11/22 02:45 Dextrose 50% 25 Gm/50 Ml Syringe IV PUSH PRN PRN Hypoglycemia Protocol Empagliflozin 10 mg 03/11/22 09:00 03/17/22 09:53 Empagliflozin 10 Mg Tablet PO 10 mg DAILY LEAH Administration Enoxaparin Sodium 40 mg 03/11/22 09:00 03/17/22 09:55 Enoxaparin 40 Mg/0.4 Ml Syringe SUB-Q 40 mg DAILY LEAH Administration Fenofibrate 160 mg 03/11/22 09:00 09
[2022-03-18 08:08] LABS: Glucose Point of Care 75 mg/dl (65-105)
[2022-03-18] MEDS: LIDOCAINE 5% PATCH 1 PATCH TRANSDERM (08:10)
[2022-03-18] MEDS: ENOXAPARIN 40 MG/0.4 ML SYRINGE SUB-Q (08:10)
[2022-03-18] MEDS: FINASTERIDE 5 MG TABLET PO (08:11)
[2022-03-18] MEDS: carvediloL 3.125 MG TABLET PO ×2 (08:11→20:29)
[2022-03-18] MEDS: FENOFIBRATE 160 MG TABLET PO (08:11)
[2022-03-18] MEDS: ATORVASTATIN 40 MG TABLET PO (08:11)
[2022-03-18] MEDS: TAMSULOSIN HCL 0.4 MG CAPSULE PO (08:11)
[2022-03-18] MEDS: ASPIRIN 81 MG ENTERIC TABLET PO (08:11)
[2022-03-18] MEDS: OLANZapine 5 MG TABLET 10 MG PO ×2 (08:11→20:30)
[2022-03-18] MEDS: lisinopriL 5 MG TABLET PO (08:12)
[2022-03-18 08:16] LABS: Basophils Absolute Auto 0.1 K/mm3 (0.0-0.1); Basophils Percent Auto 0.4 % (0.2-1.2); Eosinophils Absolute Auto 0.3 K/mm3 (0-0.3); Eosinophils Percent Auto 1.9 % (0-4.4); Hematocrit 30.9 % (42.0-52.0); Hemoglobin 10.1 g/dL (14.0-18.0); Immature Granulocyte Percent A 1.9 % (0-0.5); Lymphocytes Absolute Auto 1.84 K/mm3 (0.9-3.2); Lymphocytes Percent Auto 11.5 % (18.3-44.2); Mean Corpuscular HGB Conc 32.7 g/dl (32-36); Mean Corpuscular Hemoglobin 31.9 pg (26-34); Mean Corpuscular Volume 97.5 fl (80-100); Mean Platelet Volume 9.7 fl (7.4-10.4); Monocytes Absolute Auto 1.7 K/mm3 (0.1-0.6); Monocytes Percent Auto 10.3 % (2.6-8.5); Neutrophils Absolute Auto 11.8 K/mm3 (1.3-6.7); Platelet Count Result 665 k/mm3 (150-375); Red Blood Count 3.17 M/mm3 (4.6-6.20); Red Cell Distribution Width 13.8 % (11.5-14.5)
[2022-03-18 08:30] LABS: Alanine Aminotransferase 25 U/L (6-50); Albumin Level 3.4 g/dL (3.5-5.1); Alkaline Phosphatase 116 U/L (38-126); Anion Gap 11 mmol/L (8-16); Aspartate Amino Transferase 39 U/L (17-59); Bilirubin,Total 0.3 mg/dL (0.2-1.3); Blood Urea Nitrogen 6 mg/dL (9-20); Calcium 8.5 mg/dL (8.4-10.2); Carbon Dioxide 22 mmol/L (22-30); Chloride 103 mmol/L (98-107); Estimated CRCL calculation 114 ml/min; Estimated Glomerular Filt Rate > 60; Glucose 67 mg/dL (65-110); Potassium 3.5 mmol/L (3.4-5.0); Sodium 136 mmol/L (137-145)
[2022-03-18 12:00] LABS: Glucose Point of Care 94 mg/dl (65-105)
--- NOTE | 2022-03-18 13:10 | PCNWS ---
Weekly nutritional screen. Patient is tolerating current diet with adequate intake. No weight loss reported. No nutritional needs at this time.
--- NOTE | 2022-03-18 13:14 | PCNSR ---
On 03/18/22, the student, Andrew Lovelace, provided care and completed [employer] documentation on this patient. I have reviewed the student's documentation and agree with the findings.
[2022-03-18] MEDS: CENTRAL LINE FLUSH 10 ML IV PUSH ×2 (14:04→23:50)
--- NOTE | 2022-03-18 16:00 | PM.IMPN ---
Progress Note: A&P Assessment and Plan (1) Severe sepsis: Code(s): A41.9 - Sepsis, unspecified organism; R65.20 - Severe sepsis without septic shock Status: Acute Assessment and Plan: Resolved, place PICC line, continue Levaquin for an additional 5 weeks, discontinue Ancef (2) Cellulitis of foot, left: Code(s): L03.116 - Cellulitis of left lower limb Status: Acute Assessment and Plan: as above (3) Acute osteomyelitis of foot: Code(s): M86.179 - Other acute osteomyelitis, unspecified ankle and foot Status: Acute Assessment and Plan: Appreciate orthopedic surgery consultation, infectious disease pharmacist consult as well, PICC line being placed for long-term antibiotics, will need to follow up with Orthopedics versus podiatry outpatient for debridement and possible surgical intervention if necessary (4) Chronic anemia: Code(s): D64.9 - Anemia, unspecified Status: Acute Assessment and Plan: Iron deficiency anemia, continue ferrous sulfate, stable (5) Coronary artery disease: Code(s): I25.10 - Atherosclerotic heart disease of [place] coronary artery without angina pectoris Status: Acute Assessment and Plan: Stable, continue current management (6) Hypertension: Code(s): I10 - Essential (primary) hypertension Status: Acute Assessment and Plan: Stable, continue current management (7) Type 2 diabetes mellitus: Code(s): E11.9 - Type 2 diabetes mellitus without complications Status: Acute Assessment and Plan: Controlled, continue current management (8) Seizure disorder: Code(s): G40.909 - Epilepsy, unspecified, not intractable, without status epilepticus Status: Acute Assessment and Plan: Stable on no medications (9) Chronic obstructive pulmonary disease: Code(s): J44.9 - Chronic obstructive pulmonary disease, unspecified Status: Acute Assessment and Plan: Stable (10) Acute metabolic encephalopathy: Code(s): G93.41 - Metabolic encephalopathy Status: Acute Assessment and Plan: Improving, likely secondary to osteomyelitis, essentially resolved, reassess tomorrow (11) Diabetic foot ulcer: Qualifiers: Diabetic foot ulcer location: toe Diabetes mellitus type: type 2 Laterality: left Non-pressure ulcer stage: with muscle involvement without evidence of necrosis Qualified Code(s): E11.621 - Type 2 diabetes mellitus with foot ulcer; L97.525 - Non-pressure chronic ulcer of other part of left foot with muscle involvement without evidence of necrosis Code(s): E11.621 - Type 2 diabetes mellitus with foot ulcer; L97.509 - Non-pressure chronic ulcer of other part of unspecified foot with unspecified severity Status: Acute Assessment and Plan: Stable (12) BPH (benign prostatic hyperplasia): Code(s): N40.0 - Benign prostatic hyperplasia without lower urinary tract symptoms Status: Acute Assessment and Plan: Osorio removed, voiding okay (13) Bacteremia: Code(s): R78.81 - Bacteremia Status: Acute Assessment and Plan: Continue IV antibiotics, follow-up repeat blood cultures Plan DVT prophylaxis with SCDs GI prophylaxis not indicated Code status full code Subjective Date/time seen: 03/18/22 16:00 Interval history: Patient resting comfortably, here to go home. No complaints. No overnight events noted. No chest pain or shortness of breath. No nausea, vomiting or diarrhea. No fevers or chills. Exam Narrative: General: No acute distress, alert and oriented per baseline HEENT: Atraumatic, normocephalic, mucous membranes moist CV: Regular rate and rhythm, S1, S2 Lungs: Clear to auscultation bilaterally, no rales or crackles noted, no wheezes, good air entry Abdomen: Soft, nontender, nondistended Ex
[2022-03-18] MEDS: HYDROcodone/acetaminophen (*CRX) 5-325 MG TABLET 1 TAB PO (16:33)
[2022-03-18 16:44] LABS: Glucose Point of Care 153 mg/dl (65-105)
[2022-03-18] MEDS: CALCIUM CARBONATE (TUMS) 500 MG (200 MG ELEMENTAL) PO (17:39)
[2022-03-18] MEDS: INSULIN GLARGINE (*BKC) 100 UNITS/ML 45 UNITS SUB-Q (20:28)
[2022-03-18 20:55] LABS: Glucose Point of Care 188 mg/dl (65-105)
[2022-03-19 06:00] VITALS: BP 117/57; PULSE 90; RESP 18; TEMP 36.5; O2SAT 93
[2022-03-19] MEDS: ceFAZolin 2 GM/D5W 50 ML 2 GM/50 ML BAG IVPB ×3 (06:58→22:03)
[2022-03-19] MEDS: carBAMazepine 200 MG TABLET PO ×3 (06:59→21:59)
[2022-03-19] MEDS: CENTRAL LINE FLUSH 10 ML IV PUSH ×3 (06:59→22:05)
[2022-03-19 07:04] LABS: Basophils Absolute Auto 0.1 K/mm3 (0.0-0.1); Basophils Percent Auto 0.4 % (0.2-1.2); Eosinophils Absolute Auto 0.3 K/mm3 (0-0.3); Eosinophils Percent Auto 1.7 % (0-4.4); Hematocrit 29.2 % (42.0-52.0); Hemoglobin 9.3 g/dL (14.0-18.0); Immature Granulocyte Percent A 2.3 % (0-0.5); Lymphocytes Absolute Auto 1.94 K/mm3 (0.9-3.2); Lymphocytes Percent Auto 11.3 % (18.3-44.2); Mean Corpuscular HGB Conc 31.8 g/dl (32-36); Mean Corpuscular Hemoglobin 30.9 pg (26-34); Mean Platelet Volume 9.7 fl (7.4-10.4); Monocytes Absolute Auto 1.7 K/mm3 (0.1-0.6); Monocytes Percent Auto 9.6 % (2.6-8.5); Neutrophils Absolute Auto 12.9 K/mm3 (1.3-6.7); Neutrophils Percent Auto 74.7 % (45.5-73.1); Platelet Count Result 671 k/mm3 (150-375); Red Blood Count 3.01 M/mm3 (4.6-6.20); Red Cell Distribution Width 14.2 % (11.5-14.5); White Blood Count 17.2 K/mm3 (4.5-10.0)
[2022-03-19 07:14] LABS: Alanine Aminotransferase 21 U/L (6-50); Albumin Level 3.2 g/dL (3.5-5.1); Alkaline Phosphatase 103 U/L (38-126); Anion Gap 9 mmol/L (8-16); Aspartate Amino Transferase 29 U/L (17-59); Bilirubin,Total 0.2 mg/dL (0.2-1.3); Blood Urea Nitrogen 7 mg/dL (9-20); Calcium 8.4 mg/dL (8.4-10.2); Carbon Dioxide 24 mmol/L (22-30); Chloride 104 mmol/L (98-107); Estimated CRCL calculation 129 ml/min; Estimated Glomerular Filt Rate > 60; Glucose 78 mg/dL (65-110); Potassium 3.6 mmol/L (3.4-5.0); Sodium 137 mmol/L (137-145)
[2022-03-19 08:24] LABS: Glucose Point of Care 77 mg/dl (65-105)
[2022-03-19 08:56] VITALS: BP 124/74; PULSE 91; RESP 18; O2SAT 94
[2022-03-19] MEDS: ASPIRIN 81 MG ENTERIC TABLET PO (09:04)
[2022-03-19 09:05] VITALS: PULSE 90
[2022-03-19] MEDS: EMPAGLIFLOZIN 10 MG TABLET PO (09:05)
[2022-03-19] MEDS: FINASTERIDE 5 MG TABLET PO (09:05)
[2022-03-19] MEDS: ATORVASTATIN 40 MG TABLET PO (09:05)
[2022-03-19] MEDS: FENOFIBRATE 160 MG TABLET PO (09:05)
[2022-03-19] MEDS: lisinopriL 5 MG TABLET PO (09:05)
[2022-03-19] MEDS: OLANZapine 5 MG TABLET 10 MG PO ×2 (09:05→21:59)
[2022-03-19] MEDS: TAMSULOSIN HCL 0.4 MG CAPSULE PO (09:05)
[2022-03-19] MEDS: carvediloL 3.125 MG TABLET PO ×2 (09:05→21:59)
[2022-03-19] MEDS: LIDOCAINE 5% PATCH 1 PATCH TRANSDERM (09:05)
[2022-03-19] MEDS: ENOXAPARIN 40 MG/0.4 ML SYRINGE SUB-Q (09:05)
--- NOTE | 2022-03-19 09:27 | PCOTNOTE ---
Attempted to see patient for OT treatment this AM. Patient refusing any/all activity stating he just got bad news and he isn't doing any therapy today.
--- NOTE | 2022-03-19 09:33 | PM.PNORT ---
Progress Note: A&P Assessment and Plan (1) Diabetic foot ulcer: Qualifiers: Diabetes mellitus type: type 2 Diabetic foot ulcer location: toe Laterality: left Non-pressure ulcer stage: with muscle involvement without evidence of necrosis Qualified Code(s): E11.621 - Type 2 diabetes mellitus with foot ulcer; L97.525 - Non-pressure chronic ulcer of other part of left foot with muscle involvement without evidence of necrosis <Apryl Calzadajunito, AUTHOR AGENT - Last Filed: 03/19/22 09:39> Code(s): E11.621 - Type 2 diabetes mellitus with foot ulcer; L97.509 - Non-pressure chronic ulcer of other part of unspecified foot with unspecified severity <Apryl Ludy Calzadajunito, AUTHOR AGENT - Last Filed: 03/19/22 09:39> Status: Acute <Apryl TcAldo Zhengjunito, AUTHOR AGENT - Last Filed: 03/19/22 09:39> Assessment and Plan: Wound on the plantar aspect of the left foot which measures 1.0 x 0.5 x 1.5 cm with tunneling at the 12 o'clock position towards the 2nd metatarsal to 2 cm and now between the 1st and 2nd interspace of the left foot. Still unable to palpate bone. New fluctuance on the dorsal forefoot concerning for abscess. Wound cultures with staph and Pseudomonas aeruginosa. Initial blood cultures revealed staphylococcus epidermis. Continue IV antibiotics under the direction of the medicine team and [facility]. Continue daily dressing changes with Aquacel AG rope and cover dry. Given new fluctuance, increasing purulent drainage and rising WBC, would recommend repeat radiographs of the left foot. Patient will likely need to return to OR for debridement. Patient has eaten already today. <Apryl MAldo Zhengjunito, AUTHOR AGENT - Last Filed: 03/19/22 09:39> (2) Severe sepsis: Code(s): A41.9 - Sepsis, unspecified organism; R65.20 - Severe sepsis without septic shock <Apryl TcAldo Joyce, AUTHOR AGENT - Last Filed: 03/19/22 09:39> Status: Acute <Apryl TcAldo Zhengjunito, AUTHOR AGENT - Last Filed: 03/19/22 09:39> Assessment and Plan: WBC rising today. <Apryl TcAldo Joyce, AUTHOR AGENT - Last Filed: 03/19/22 09:39> (3) Cellulitis of foot, left: Code(s): L03.116 - Cellulitis of left lower limb <LOBO PaytonP - Last Filed: 03/19/22 09:39> Status: Acute <Apryl Joyce AUTHOR AGENT - Last Filed: 03/19/22 09:39> (4) Acute osteomyelitis of foot: Code(s): M86.179 - Other acute osteomyelitis, unspecified ankle and foot <Apryl Ludy Joyce, AUTHOR AGENT - Last Filed: 03/19/22 09:39> Status: Acute <Apryl Joyce, AUTHOR AGENT - Last Filed: 03/19/22 09:39> Assessment and Plan: MRI of the left foot revealed reactive changes at the 2nd metatarsophalangeal joint which may be early osteomyelitis versus cellulitis with reactive osteitis. Changes seen on the radiographs/MRI at the distal 3rd and 4th toe as well as on the MRI. Do not correlate with the clinical picture as there is no swelling, erythema or skin break at the 3rd or 4th toe. May be auto necrosis due to poor blood flow and neuropathy. <Apryl Joyce, AUTHOR AGENT - Last Filed: 03/19/22 09:39> (5) Bacteremia: Code(s): R78.81 - Bacteremia <Apryl Joyce, AUTHOR AGENT - Last Filed: 03/19/22 09:39> Status: Acute <Apryl Joyce, AUTHOR AGENT - Last Filed: 03/19/22 09:39> Assessment and Plan: patient seen and examined. Dressing change left foot. New purulence drainage able to be expressed from the plantar ulcer. Increased fluctuance and erythema on the dorsum of the foot. Given change in condition would recommend I&D of left foot when stable. <Rashid Flower MD - Last Filed: 03/19/22 10:04> Subjective Subjective Date/Time Seen: 03/19/22 09:33 <Apryl MontezAldo Zhengjunito AUTHOR AGENT - Last Filed: 03/19/22 09:39> Interval history: Patient awake/alert. Sitting up in bed. No new concerns today. <Apryl MontezAldo Zhengjunito AUTHOR AGENT - Last Filed: 03/19/22 09:39> Review of Systems Review of Systems: All systems reviewed & are unremarkable except as noted in HPI and below (HPI ) <Apryl Joyce, MARIPOSA - Last Filed: 03/19/22
[2022-03-19 11:48] LABS: Glucose Point of Care 105 mg/dl (65-105)
[2022-03-19 14:00] VITALS: BP 115/72; PULSE 88; RESP 18; TEMP 36.6; O2SAT 97
[2022-03-19] MEDS: HYDROcodone/acetaminophen (*CRX) 5-325 MG TABLET 1 TAB PO (14:18)
--- NOTE | 2022-03-19 16:35 | PC.NURSE ---
Spoke with Dr. Gallego about patient discharge. Patient to have debridement done tomorrow per Dr. Flower. Dr. Gallego okay with me cancelling discharge
[2022-03-19] MEDS: CALCIUM CARBONATE (TUMS) 500 MG (200 MG ELEMENTAL) PO (17:00)
[2022-03-19 17:03] LABS: Glucose Point of Care 105 mg/dl (65-105)
[2022-03-19] MEDS: ACETAMINOPHEN 325 MG TABLET 650 MG PO (18:36)
[2022-03-19 20:15] VITALS: BP 114/75; PULSE 82; RESP 16; TEMP 36.8; O2SAT 96
[2022-03-19 20:34] LABS: Glucose Point of Care 146 mg/dl (65-105)
[2022-03-19 21:59] VITALS: PULSE 82
[2022-03-19] MEDS: INSULIN GLARGINE (*BKC) 100 UNITS/ML 45 UNITS SUB-Q (22:03)
[2022-03-20] VITALS (14 sets, daily range): BP systolic 104–132; BP diastolic 63–82; PULSE 75–92; RESP 13–20; TEMP 36.3–36.9; O2SAT 95–100
[2022-03-20 05:19] LABS: Basophils Absolute Auto 0.1 K/mm3 (0.0-0.1); Basophils Percent Auto 0.5 % (0.2-1.2); Eosinophils Absolute Auto 0.4 K/mm3 (0-0.3); Eosinophils Percent Auto 2.7 % (0-4.4); Hemoglobin 9.8 g/dL (14.0-18.0); Immature Granulocyte Absolute 0.48 K/mm3 (0.00-0.031); Lymphocytes Absolute Auto 2.11 K/mm3 (0.9-3.2); Mean Corpuscular HGB Conc 32.7 g/dl (32-36); Mean Corpuscular Hemoglobin 32.1 pg (26-34); Mean Corpuscular Volume 98.4 fl (80-100); Mean Platelet Volume 9.3 fl (7.4-10.4); Monocytes Absolute Auto 1.8 K/mm3 (0.1-0.6); Neutrophils Absolute Auto 11.3 K/mm3 (1.3-6.7); Neutrophils Percent Auto 69.8 % (45.5-73.1); Platelet Count Result 676 k/mm3 (150-375); Red Blood Count 3.05 M/mm3 (4.6-6.20); Red Cell Distribution Width 14.3 % (11.5-14.5); White Blood Count 16.2 K/mm3 (4.5-10.0)
[2022-03-20 05:30] LABS: Alanine Aminotransferase 18 U/L (6-50); Albumin Level 3.4 g/dL (3.5-5.1); Alkaline Phosphatase 99 U/L (38-126); Anion Gap 9 mmol/L (8-16); Aspartate Amino Transferase 23 U/L (17-59); Bilirubin,Total 0.2 mg/dL (0.2-1.3); Blood Urea Nitrogen 8 mg/dL (9-20); Calcium 8.6 mg/dL (8.4-10.2); Carbon Dioxide 23 mmol/L (22-30); Chloride 103 mmol/L (98-107); Estimated CRCL calculation 112 ml/min; Estimated Glomerular Filt Rate > 60; Glucose 74 mg/dL (65-110); Potassium 3.6 mmol/L (3.4-5.0); Sodium 135 mmol/L (137-145)
[2022-03-20] MEDS: ceFAZolin 2 GM/D5W 50 ML 2 GM/50 ML BAG IVPB ×3 (05:30→21:33)
[2022-03-20] MEDS: CENTRAL LINE FLUSH 10 ML IV PUSH ×3 (05:30→21:36)
[2022-03-20 07:44] LABS: Glucose Point of Care 60 mg/dl (65-105)
--- NOTE | 2022-03-20 07:48 | PM.IMPN ---
Progress Note: A&P Assessment and Plan (1) Severe sepsis: Code(s): A41.9 - Sepsis, unspecified organism; R65.20 - Severe sepsis without septic shock Status: Acute Assessment and Plan: Resolved, place PICC line, continue Levaquin for an additional 5 weeks, discontinue Ancef (2) Cellulitis of foot, left: Code(s): L03.116 - Cellulitis of left lower limb Status: Acute Assessment and Plan: as above (3) Acute osteomyelitis of foot: Code(s): M86.179 - Other acute osteomyelitis, unspecified ankle and foot Status: Acute Assessment and Plan: Appreciate orthopedic surgery consultation, infectious disease pharmacist consult as well, PICC line being placed for long-term antibiotics, will need to follow up with Orthopedics versus podiatry outpatient for debridement and possible surgical intervention if necessary Leukocytosis still fluctuating, plan for debridement of wound today in the OR, agree with this, will monitor after surgery (4) Chronic anemia: Code(s): D64.9 - Anemia, unspecified Status: Acute Assessment and Plan: Iron deficiency anemia, continue ferrous sulfate, stable (5) Coronary artery disease: Code(s): I25.10 - Atherosclerotic heart disease of [place] coronary artery without angina pectoris Status: Acute Assessment and Plan: Stable, continue current management (6) Hypertension: Code(s): I10 - Essential (primary) hypertension Status: Acute Assessment and Plan: Stable, continue current management (7) Type 2 diabetes mellitus: Code(s): E11.9 - Type 2 diabetes mellitus without complications Status: Acute Assessment and Plan: Controlled, continue current management (8) Seizure disorder: Code(s): G40.909 - Epilepsy, unspecified, not intractable, without status epilepticus Status: Acute Assessment and Plan: Stable on no medications (9) Chronic obstructive pulmonary disease: Code(s): J44.9 - Chronic obstructive pulmonary disease, unspecified Status: Acute Assessment and Plan: Stable (10) Acute metabolic encephalopathy: Code(s): G93.41 - Metabolic encephalopathy Status: Acute Assessment and Plan: resolved (11) Diabetic foot ulcer: Qualifiers: Diabetes mellitus type: type 2 Diabetic foot ulcer location: toe Laterality: left Non-pressure ulcer stage: with muscle involvement without evidence of necrosis Qualified Code(s): E11.621 - Type 2 diabetes mellitus with foot ulcer; L97.525 - Non-pressure chronic ulcer of other part of left foot with muscle involvement without evidence of necrosis Code(s): E11.621 - Type 2 diabetes mellitus with foot ulcer; L97.509 - Non-pressure chronic ulcer of other part of unspecified foot with unspecified severity Status: Acute Assessment and Plan: as above (12) BPH (benign prostatic hyperplasia): Code(s): N40.0 - Benign prostatic hyperplasia without lower urinary tract symptoms Status: Acute Assessment and Plan: Osorio removed, voiding okay (13) Bacteremia: Code(s): R78.81 - Bacteremia Status: Acute Assessment and Plan: Continue IV antibiotics, repeat blood cx from 03/14 NGTD Plan DVT prophylaxis with SCDs GI prophylaxis not indicated Code status full code Subjective Date/time seen: 03/20/22 07:48 Interval history: Somnolent after the OR today. No overnight events noted. No chest pain or shortness of breath. No nausea, vomiting or diarrhea. No fevers or chills. Review of Systems Review of Systems: 12 point review of systems was assessed and was negative except as noted in the HPI Exam Narrative: General: No acute distress, alert and oriented per baseline HEENT: Atraumatic, normocephalic, mucous membranes moist CV: Regular rate and rhythm, S1, S2
--- NOTE | 2022-03-20 07:51 | WPDHPUPDATE1 ---
History and Physical Update Update Date/Time: 03/20/22 07:51 History and Physical has been reviewed, including an updated exam of the patient. There are NO changes in the patient's condition. Risks, benefits, and alternatives have been discussed and questions answered. Patient agrees to proceed with procedure.
[2022-03-20] MEDS: DEXTROSE 50% 25 GM/50 ML SYRINGE IV PUSH (07:56)
--- NOTE | 2022-03-20 08:04 | WPDANESEPPF ---
Anes - Initial Pre Proc Eval Procedure: Operation Date: 03/20/22 08:00 Proposed Procedures p Incision and Drainage Left Foot, Pinning Left Second Toe - Rashid Flower MD Date/Time: 03/20/22 08:04 Surgeon: Celestino Pre Op Diagnosis: Severe Sepsis,Left Foot Cellulitis,Osteomyelitis Patient Data Age: 61 Gender: M Height: 1.83 m Weight: 114.4 kg Last Vital Signs Temp 36.4 C 03/20/22 05:28 Pulse 79 03/20/22 05:28 Resp 20 03/20/22 05:28 BP 109/65 03/20/22 05:28 Pulse Ox 97 03/20/22 05:28 O2 Del Method Room Air 03/19/22 19:50 Allergies Allergy/AdvReac Type Severity Reaction Status Date / Time metoclopramide AdvReac Mild Vomiting Verified 03/10/22 21:31 Home Medications Medication Instructions Recorded Confirmed Type albuterol sulfate 90 mcg/actuation 90 mcg inhalation QID PRN 09/05/21 03/11/22 History aerosol inhaler (ProAir HFA) Shortness Of Breath aspirin 81 mg tablet,delayed 81 mg PO DAILY 09/05/21 03/11/22 History release (Adult Low Dose Aspirin) atorvastatin 40 mg tablet (Lipitor) 40 mg PO DAILY 09/05/21 03/11/22 History carvedilol 3.125 mg tablet (Coreg) 3.125 mg PO Q12H 09/05/21 03/11/22 History empagliflozin 10 mg tablet 10 mg PO DAILY 09/05/21 03/11/22 History (Jardiance) fenofibrate 160 mg tablet 160 mg PO DAILY 09/05/21 03/11/22 History lisinopril 5 mg tablet (Zestril) 5 mg PO DAILY 09/05/21 03/11/22 History carbamazepine 200 mg tablet 200 mg PO Q8HR #90 tabs 09/07/21 03/11/22 Rx acetaminophen 300 mg-codeine 30 mg 1 tablet PO Q12H PRN Pain 03/11/22 03/11/22 History tablet doxycycline monohydrate 100 mg 100 mg Q12H 03/11/22 03/11/22 History capsule insulin glargine 100 unit/mL (3 45 unit subcut HS 03/11/22 03/11/22 History mL) subcutaneous pen (Lantus Solostar U-100 Insulin) olanzapine 20 mg tablet 10 mg PO Q12H 03/11/22 03/11/22 History levofloxacin 750 mg/150 mL in 5 % 750 mg IV Q24H 5 weeks #3,600 mL 03/18/22 Rx dextrose intravenous piggyback Laboratory Tests 03/19/22 03/19/22 03/19/22 08:21 11:45 16:59 WBC RBC Hgb Hct MCV MCH MCHC RDW Plt Count MPV Immature Gran % (Auto) Neut % (Auto) Lymph % (Auto) [place] % (Auto) Eos % (Auto) Baso % (Auto) Lymph # (Auto) [place] # (Auto) Eos # (Auto) Baso # (Auto) Abs Immat Gran (auto) Absolute Neuts (auto) Absolute Nucleated RBC Nucleated RBC % Sodium Potassium Chloride Carbon Dioxide Anion Gap BUN Creatinine Estim Creat Clear Calc Estimated GFR Glucose POC Capillary Glucose 77 mg/dl mg/dl 105 mg/dl mg/dl 105 mg/dl mg/dl (65-105) (65-105) (65-105) Calcium Total Bilirubin AST ALT Alkaline Phosphatase Total Protein Albumin 03/19/22 03/20/22 03/20/22 20:23 04:59 04:59 WBC 16.2 K/mm3 H K/mm3 (4.5-10.0) RBC 3.05 M/mm3 L M/mm3 (4.6-6.20) Hgb 9.8 g/dL L g/dL (14.0-18.0) Hct 30.0 % L % (42.0-52.0) MCV 98.4 fl fl (80-100) MCH 32.1 pg pg (26-34) MCHC 32.7 g/dl g/dl (32-36) RDW 14.3 % % (11.5-14.5) Plt Count 676 k/mm3 H k/mm3 (150-375) MPV 9.3 fl fl (7.4-10.4) Immature Gran % (Auto) 3.0 % H % (0-0.5) Neut % (Auto) 69.8 % % (45.5-73.1) Lymph % (Auto) 13.0 % L % (18.3-44.2) [place] % (Auto) 11.0 % H % (2.6-8.5) Eos % (Auto) 2.7 % % (0-4.4) Baso % (Auto) 0.5 % % (0.2-1.2) Lymph # (Auto) 2.11 K/mm3 K/mm3
[2022-03-20 08:13] LABS: Glucose Point of Care 133 mg/dl (65-105)
[2022-03-20 08:32] LABS: Glucose Point of Care 113 mg/dl (65-105)
[2022-03-20] MEDS: LACTATED RINGERS 1,000 ML 30 ML IV CONT (08:36)
[2022-03-20] MEDS: VANCOMYCIN HCL 1,000 MG VIAL 1000 MG TOPICAL (09:27)
[2022-03-20 09:52] LABS: Glucose Point of Care 91 mg/dl (65-105)
--- NOTE | 2022-03-20 10:09 | P.OP_ITS ---
Procedure Note - Detailed Date of Procedure 03/20/22 Pre-op Diagnosis Severe Sepsis,Left Foot Cellulitis,Osteomyelitis Post-op Diagnosis Same Procedure Performed Left foot excision osteomyelitis, excisional debridement diabetic foot ulcer muscle layer Surgeon Rashid Flower MD Production Clerk assistant health educator Anesthesia General Indications 61-year-old gentleman with uncontrolled diabetes, peripheral neuropathy and peripheral vascular disease has been in the hospital with left foot diabetic ulcer and cellulitis. Foot noted to be worse despite IV antibiotics with increased swelling, redness and purulent drainage. Brought to the operating room for debridement of left foot and treatment of infection. Findings Abscess in the 1st web space extending to the dorsum of the foot over the 2nd metatarsal. Involvement of the 2nd metatarsophalangeal joint with septic arthritis. Extension under the hallux to the interphalangeal joint plantar surface. Description of Procedure Patient identified in the preoperative holding. Informed consent given. Operative extremity marked. Patient received intravenous antibiotics. Patient brought to the operating room where underwent general anesthetic by anesthesia team. Positioned supine on operating room table. Time-out performed confirming the patient, site of the surgery and the plan. Left foot prepped and draped in the usual sterile surgical fashion using a Betadine prep solution. A calf tourniquet was inflated to 250 mmHg without exsanguination. There is a 1.5 cm ulcer on the plantar aspect of the left foot under the 2nd metatarsal head. This had purulent drainage and probed through the webspace to the dorsum of the foot. Cultures from the purulent material were taken and passed off. Dorsal longitudinal incision made with a 15 blade knife over the 2nd metatarsophalangeal joint. A subcutaneous abscess was encountered with purulent material extending over the 2nd metatarsal and metatarsophalangeal joint, 1st webspace and plantar word under the hallux proximal phalanx to the interphalangeal level. Did not appear to involve the hallux metatarsophalangeal or interphalangeal joints. There was involvement of the 2nd metatarsophalangeal joint. Necrotic material was excised. Dorsal capsulotomy of the 2nd metatarsophalangeal joint performed. Sagittal saw used to resect the distal end of the 2nd metatarsal and the proximal phalangeal articular surfaces. These were removed with a rongeur. There was noted to be gross purulence involving the articular surface and the bone. Wound thoroughly irrigated and closed with 0 Prolene interrupted suture over vancomycin powder applied to the soft tissue. Plantar ulcer was extended proximally and distally. Fifteen blade knife used to sharply excise skin, subcutaneous tissue and muscle that was infected. This was excised and passed off. Rongeur and curette used to debride the soft tissue. This extended under the hallux as noted. This was thoroughly irrigated with saline. Vancomycin powder was applied to the wound and the wound was packed with a Betadine gauze. Sterile dressing applied. The patient was then woken from anesthesia, extubated and taken to the recovery room in stable condition. All sponge, needle, instrument counts were correct at the end of the case. Estimated Blood Loss 10 Tourniquet Time 45 Urine Output 450 Drains No Packing Yes (Plantar left foot) Pathology Other (Wound cultures and stat Gram stain) Complications None Condition Stable Disposition PACU
--- NOTE | 2022-03-20 10:44 | PCOTNOTE ---
Pt is currently out of room having a procedure completed at this time. Will continue per poc duration/frequency tomorrow.
[2022-03-20 12:13] LABS: Glucose Point of Care 79 mg/dl (65-105)
[2022-03-20] MEDS: ATORVASTATIN 40 MG TABLET PO (12:35)
[2022-03-20] MEDS: EMPAGLIFLOZIN 10 MG TABLET PO (12:35)
[2022-03-20] MEDS: carvediloL 3.125 MG TABLET PO ×2 (12:35→21:32)
[2022-03-20] MEDS: ASPIRIN 81 MG ENTERIC TABLET PO (12:35)
[2022-03-20] MEDS: FINASTERIDE 5 MG TABLET PO (12:36)
[2022-03-20] MEDS: OLANZapine 5 MG TABLET 10 MG PO ×2 (12:36→21:33)
[2022-03-20] MEDS: FENOFIBRATE 160 MG TABLET PO (12:36)
[2022-03-20] MEDS: LIDOCAINE 5% PATCH 1 PATCH TRANSDERM (12:36)
[2022-03-20] MEDS: ENOXAPARIN 40 MG/0.4 ML SYRINGE SUB-Q (12:36)
[2022-03-20] MEDS: KCL 20MEQ/0.9% SOD CHL 1,000 ML 125 ML IV CONT (12:37)
[2022-03-20] MEDS: lisinopriL 5 MG TABLET PO (12:37)
[2022-03-20] MEDS: TAMSULOSIN HCL 0.4 MG CAPSULE PO (12:37)
[2022-03-20] MEDS: HYDROcodone/acetaminophen (*CRX) 5-325 MG TABLET 1 TAB PO ×2 (14:40→21:34)
[2022-03-20] MEDS: carBAMazepine 200 MG TABLET PO ×2 (14:41→21:32)
[2022-03-20 17:16] LABS: Glucose Point of Care 147 mg/dl (65-105)
[2022-03-20] MEDS: ACETAMINOPHEN 325 MG TABLET 650 MG PO (17:34)
[2022-03-20 20:39] LABS: Glucose Point of Care 102 mg/dl (65-105)
[2022-03-21] VITALS (8 sets, daily range): BP systolic 101–127; BP diastolic 57–70; PULSE 80–91; RESP 17–19; TEMP 36.5–36.9; O2SAT 94–97
[2022-03-21] MEDS: ceFAZolin 2 GM/D5W 50 ML 2 GM/50 ML BAG IVPB ×3 (06:56→21:28)
[2022-03-21] MEDS: carBAMazepine 200 MG TABLET PO ×3 (06:56→21:28)
[2022-03-21] MEDS: CENTRAL LINE FLUSH 10 ML IV PUSH ×3 (06:57→21:29)
--- NOTE | 2022-03-21 07:32 | PM.PNORT ---
Progress Note: A&P Assessment and Plan (1) Diabetic foot ulcer: Qualifiers: Diabetic foot ulcer location: toe Diabetes mellitus type: type 2 Laterality: left Non-pressure ulcer stage: with necrosis of bone Qualified Code(s): E11.621 - Type 2 diabetes mellitus with foot ulcer; L97.524 - Non-pressure chronic ulcer of other 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 Code(s): E11.621 - Type 2 diabetes mellitus with foot ulcer; L97.509 - Non-pressure chronic ulcer of other part of unspecified foot with unspecified severity Status: Acute Assessment and Plan: Postoperative day 1 left foot debridement and excision of osteo. Discussed with patient and his . Operative findings reviewed. Concern for adequate blood flow to the left foot. Will leave sterile dressing in place. Discussed plan for return to the operating room tomorrow for debridement and possible toe amputation. Risks, benefits and alternatives reviewed. Questions answered. Discussed nonoperative and operative treatment options with the patient. Risks and benefits of each as well as alternatives were reviewed. All of the patient's questions were answered. The risks of surgery reviewed including but not limited to: Neurovascular damage, wound complication, infection, blood clot, pulmonary embolus, stroke, myocardial infarction, and anesthetic risks up to and including . Continued pain and possible dysfunction were explained. Specific risks of the procedure including later recurrence of deformity. No guarantees were offered. If complications occur, the patient understands the need for further treatment, possible further surgery. Patient verbalizes understanding and wishes to proceed. PLAN: Left foot debridement with possible transmetatarsal amputation (2) Cellulitis of foot, left: Code(s): L03.116 - Cellulitis of left lower limb Status: Acute Assessment and Plan: Cultures pending from operating room. Continue with IV antibiotics. (3) Acute osteomyelitis of foot: Code(s): M86.179 - Other acute osteomyelitis, unspecified ankle and foot Status: Acute (4) Peripheral arterial occlusive disease: Code(s): I77.9 - Disorder of arteries and arterioles, unspecified Status: Acute Assessment and Plan: Discussed poor blood flow contributing to wound healing and continued infection. We will reassess at the time of surgery tomorrow. Subjective Subjective Date/Time Seen: 03/21/22 07:32 Post Op day: 1 Principal diagnosis: Left diabetic foot ulcer with infection Interval history: Patient awake and alert. Complains of some mild pain at the toes. No problems overnight. Exam Const: General: comfortable and no acute distress HENMT: Mouth: Yes moist mucous membranes Eyes: General: appearance normal, both eyes and all related structures Neck: Neck: supple and no JVD Resp: Effort & Inspection: normal respiratory effort Cardio: Rate: regular rate Rhythm: regular rhythm GI: Inspection: non-distended GI Palp: Yes Soft to palpation and No Tenderness to palpation present (GI) Neuro: General: gait normal Speech: normal speech Extrem: Right lower extremity: foot ( no open wounds, sluggish capillary refill. No erythema or swelling. ) Details: motor-sensory exam Details: light-touch abnormal Left lower extremity: foot Details: edema ( entire foot, 4+ pitting edema) and other (Dressing in place left foot. Clean dry and intact. No drainage or bleeding noted.) Psych: Affect: normal affect Objective Data Vital Signs Vital Signs: Vital Signs - 24 hr 03/20/22 08:00 03/20/22 08:25 03/20/22 09:50 Temperature 98.4 F 97.8 F Pulse Rate 86 80 Respiratory Rate 20 13 Blood Pressure 132/82 116/79 Pulse Oximetry 96 99 Oxygen Delivery Room Air Room Air Simple Face Mask Oxygen Flow Rate 8 03/20/22 10:05 03/20/22 10:20 03/20/22 10:35 Temperature Pulse Rate 79 77 80 Respiratory Ra
[2022-03-21 08:03] LABS: Basophils Absolute Auto 0.1 K/mm3 (0.0-0.1); Basophils Percent Auto 0.5 % (0.2-1.2); Eosinophils Absolute Auto 0.5 K/mm3 (0-0.3); Eosinophils Percent Auto 3.4 % (0-4.4); Hematocrit 30.8 % (42.0-52.0); Immature Granulocyte Absolute 0.44 K/mm3 (0.00-0.031); Immature Granulocyte Percent A 2.8 % (0-0.5); Lymphocytes Percent Auto 12.9 % (18.3-44.2); Mean Corpuscular HGB Conc 32.5 g/dl (32-36); Mean Corpuscular Hemoglobin 31.7 pg (26-34); Mean Corpuscular Volume 97.8 fl (80-100); Mean Platelet Volume 9.1 fl (7.4-10.4); Monocytes Absolute Auto 1.6 K/mm3 (0.1-0.6); Monocytes Percent Auto 10.1 % (2.6-8.5); Neutrophils Absolute Auto 10.9 K/mm3 (1.3-6.7); Neutrophils Percent Auto 70.3 % (45.5-73.1); Platelet Count Result 711 k/mm3 (150-375); Red Blood Count 3.15 M/mm3 (4.6-6.20); Red Cell Distribution Width 14.5 % (11.5-14.5); White Blood Count 15.5 K/mm3 (4.5-10.0)
[2022-03-21 08:18] LABS: Alanine Aminotransferase 15 U/L (6-50); Albumin Level 3.6 g/dL (3.5-5.1); Alkaline Phosphatase 101 U/L (38-126); Anion Gap 9 mmol/L (8-16); Aspartate Amino Transferase 22 U/L (17-59); Bilirubin,Total 0.2 mg/dL (0.2-1.3); Blood Urea Nitrogen 7 mg/dL (9-20); Calcium 8.7 mg/dL (8.4-10.2); Carbon Dioxide 22 mmol/L (22-30); Chloride 104 mmol/L (98-107); Estimated CRCL calculation 126 ml/min; Estimated Glomerular Filt Rate > 60; Glucose 106 mg/dL (65-110); Potassium 4.1 mmol/L (3.4-5.0); Sodium 135 mmol/L (137-145)
[2022-03-21 08:28] LABS: Glucose Point of Care 114 mg/dl (65-105)
[2022-03-21] MEDS: carvediloL 3.125 MG TABLET PO ×2 (08:50→20:01)
[2022-03-21] MEDS: SENNA/DOCUSATE SODIUM TABLET 2 TAB PO (08:50)
[2022-03-21] MEDS: OLANZapine 5 MG TABLET 10 MG PO ×2 (08:50→20:02)
[2022-03-21] MEDS: FINASTERIDE 5 MG TABLET PO (08:50)
[2022-03-21] MEDS: ATORVASTATIN 40 MG TABLET PO (08:50)
[2022-03-21] MEDS: lisinopriL 5 MG TABLET PO (08:50)
[2022-03-21] MEDS: EMPAGLIFLOZIN 10 MG TABLET PO (08:50)
[2022-03-21] MEDS: TAMSULOSIN HCL 0.4 MG CAPSULE PO (08:50)
[2022-03-21] MEDS: ASPIRIN 81 MG ENTERIC TABLET PO (08:50)
[2022-03-21] MEDS: FENOFIBRATE 160 MG TABLET PO (08:50)
[2022-03-21] MEDS: ENOXAPARIN 40 MG/0.4 ML SYRINGE SUB-Q (08:51)
[2022-03-21] MEDS: LIDOCAINE 5% PATCH 1 PATCH TRANSDERM (08:52)
[2022-03-21] MEDS: polyethylene glycoL 3350 17 GM POWD.PACK PO (08:52)
[2022-03-21 11:46] LABS: Glucose Point of Care 148 mg/dl (65-105)
--- NOTE | 2022-03-21 15:47 | PCPTNOTE ---
Patient refused therapy at this time due to not feeling up to it. Patient was educated on the benefits of therapy however continues to decline services.
[2022-03-21] MEDS: HYDROcodone/acetaminophen (*CRX) 5-325 MG TABLET 1 TAB PO ×2 (15:53→21:29)
--- NOTE | 2022-03-21 16:05 | PM.IMPN ---
Progress Note: A&P Assessment and Plan (1) Severe sepsis: Code(s): A41.9 - Sepsis, unspecified organism; R65.20 - Severe sepsis without septic shock Status: Acute Assessment and Plan: Resolved, place PICC line, continue Levaquin for an additional 5 weeks, discontinue Ancef (2) Cellulitis of foot, left: Code(s): L03.116 - Cellulitis of left lower limb Status: Acute Assessment and Plan: as above (3) Acute osteomyelitis of foot: Code(s): M86.179 - Other acute osteomyelitis, unspecified ankle and foot Status: Acute Assessment and Plan: Appreciate orthopedic surgery consultation, infectious disease pharmacist consult as well, PICC line being placed for long-term antibiotics, will need to follow up with Orthopedics versus podiatry outpatient for debridement and possible surgical intervention if necessary Debridement went well, plan to go back to the OR for further revision and possible amputation (4) Chronic anemia: Code(s): D64.9 - Anemia, unspecified Status: Acute Assessment and Plan: Iron deficiency anemia, continue ferrous sulfate, stable (5) Coronary artery disease: Code(s): I25.10 - Atherosclerotic heart disease of [place] coronary artery without angina pectoris Status: Acute Assessment and Plan: Stable, continue current management (6) Hypertension: Code(s): I10 - Essential (primary) hypertension Status: Acute Assessment and Plan: Stable, continue current management (7) Type 2 diabetes mellitus: Code(s): E11.9 - Type 2 diabetes mellitus without complications Status: Acute Assessment and Plan: Controlled, continue current management (8) Seizure disorder: Code(s): G40.909 - Epilepsy, unspecified, not intractable, without status epilepticus Status: Acute Assessment and Plan: Stable on no medications (9) Chronic obstructive pulmonary disease: Code(s): J44.9 - Chronic obstructive pulmonary disease, unspecified Status: Acute Assessment and Plan: Stable (10) Acute metabolic encephalopathy: Code(s): G93.41 - Metabolic encephalopathy Status: Acute Assessment and Plan: resolved (11) Diabetic foot ulcer: Qualifiers: Diabetic foot ulcer location: toe Diabetes mellitus type: type 2 Laterality: left Non-pressure ulcer stage: with necrosis of bone Qualified Code(s): E11.621 - Type 2 diabetes mellitus with foot ulcer; L97.524 - Non-pressure chronic ulcer of other 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 Code(s): E11.621 - Type 2 diabetes mellitus with foot ulcer; L97.509 - Non-pressure chronic ulcer of other part of unspecified foot with unspecified severity Status: Acute Assessment and Plan: as above (12) BPH (benign prostatic hyperplasia): Code(s): N40.0 - Benign prostatic hyperplasia without lower urinary tract symptoms Status: Acute Assessment and Plan: Osorio removed, voiding okay (13) Bacteremia: Code(s): R78.81 - Bacteremia Status: Acute Assessment and Plan: Continue IV antibiotics, repeat blood cx from 03/14 NGTD Plan DVT prophylaxis with SCDs GI prophylaxis not indicated Code status full code Subjective Date/time seen: 03/21/22 16:05 Interval history: Patient states he is worried that they were going to take his whole foot is that of just his toe. No overnight events noted. No chest pain or shortness of breath. No nausea, vomiting or diarrhea. No fevers or chills. Review of Systems Review of Systems: 12 point review of systems was assessed and was negative except as noted in the HPI Exam Narrative: General: No acute distress, alert and oriented per baseline HEENT: Atraumatic, normocephalic, mucous membranes moist CV: Regular rate and rhythm, S1, S2 Lungs: Clear to auscul
[2022-03-21] MEDS: CALCIUM CARBONATE (TUMS) 500 MG (200 MG ELEMENTAL) PO ×2 (16:35→21:28)
[2022-03-21 16:52] LABS: Glucose Point of Care 102 mg/dl (65-105)
[2022-03-21] MEDS: INSULIN GLARGINE (*BKC) 100 UNITS/ML 45 UNITS SUB-Q (20:01)
[2022-03-21 21:09] LABS: Glucose Point of Care 161 mg/dl (65-105)
[2022-03-22] VITALS (15 sets, daily range): BP systolic 91–118; BP diastolic 57–83; PULSE 74–98; RESP 12–20; TEMP 36.3–37.1; O2SAT 95–100
[2022-03-22] MEDS: HYDROcodone/acetaminophen (*CRX) 5-325 MG TABLET 1 TAB PO ×3 (03:52→19:53)
[2022-03-22] MEDS: ceFAZolin 2 GM/D5W 50 ML 2 GM/50 ML BAG IVPB ×3 (05:40→21:00)
[2022-03-22] MEDS: CENTRAL LINE FLUSH 10 ML IV PUSH ×3 (05:40→21:00)
[2022-03-22 05:43] LABS: Basophils Absolute Auto 0.1 K/mm3 (0.0-0.1); Basophils Percent Auto 0.7 % (0.2-1.2); Eosinophils Absolute Auto 0.6 K/mm3 (0-0.3); Hematocrit 29.9 % (42.0-52.0); Hemoglobin 9.7 g/dL (14.0-18.0); Immature Granulocyte Absolute 0.48 K/mm3 (0.00-0.031); Immature Granulocyte Percent A 4.3 % (0-0.5); Lymphocytes Absolute Auto 2.42 K/mm3 (0.9-3.2); Lymphocytes Percent Auto 21.5 % (18.3-44.2); Mean Corpuscular HGB Conc 32.4 g/dl (32-36); Mean Corpuscular Hemoglobin 31.2 pg (26-34); Mean Corpuscular Volume 96.1 fl (80-100); Mean Platelet Volume 9.2 fl (7.4-10.4); Monocytes Absolute Auto 1.5 K/mm3 (0.1-0.6); Monocytes Percent Auto 13.1 % (2.6-8.5); Neutrophils Absolute Auto 6.3 K/mm3 (1.3-6.7); Neutrophils Percent Auto 55.4 % (45.5-73.1); Platelet Count Result 682 k/mm3 (150-375); Red Blood Count 3.11 M/mm3 (4.6-6.20); Red Cell Distribution Width 14.2 % (11.5-14.5); White Blood Count 11.3 K/mm3 (4.5-10.0)
[2022-03-22 06:08] LABS: Alanine Aminotransferase 15 U/L (6-50); Albumin Level 3.5 g/dL (3.5-5.1); Alkaline Phosphatase 90 U/L (38-126); Anion Gap 11 mmol/L (8-16); Aspartate Amino Transferase 19 U/L (17-59); Bilirubin,Total 0.2 mg/dL (0.2-1.3); Blood Urea Nitrogen 9 mg/dL (9-20); Calcium 8.3 mg/dL (8.4-10.2); Carbon Dioxide 20 mmol/L (22-30); Chloride 105 mmol/L (98-107); Estimated CRCL calculation 112 ml/min; Estimated Glomerular Filt Rate > 60; Glucose 102 mg/dL (65-110); Potassium 3.9 mmol/L (3.4-5.0); Sodium 136 mmol/L (137-145)
--- NOTE | 2022-03-22 06:52 | PC.NURSE ---
0630 PT WAS TRANSFERRED TO PRE OP IN BED. CHART WITH PT. CONSENT SIGNED AND FAMILY NOTIFIED. SURGICAL SBAR GIVEN TO PRE OP NURSES
--- NOTE | 2022-03-22 07:08 | WPDANESEPPF ---
Anes - Initial Pre Proc Eval Procedure: Operation Date: 03/11/22 14:30 Proposed Procedures p Cystoscopy, Urethral Dilatation, Osorio Catheter Placement - Omero Hinojosa MD Operation Date: 03/20/22 08:00 Proposed Procedures p Incision and Drainage Left Foot, Pinning Left Second Toe - Rashid Flower MD Operation Date: 03/22/22 07:30 Proposed Procedures p Left Foot Debridement With Possible Transmetatarsal Amputation - Rashid Flower MD Date/Time: 03/22/22 07:08 Surgeon: Brice Byrne MD Pre Op Diagnosis: Severe Sepsis,Left Foot Cellulitis,Osteomyelitis Patient Data Age: 61 Gender: M Height: 1.83 m Weight: 114.8 kg Last Vital Signs Temp 37.1 C 03/22/22 06:50 Pulse 80 03/22/22 06:50 Resp 16 03/22/22 06:50 BP 115/71 03/22/22 06:50 Pulse Ox 98 03/22/22 06:50 O2 Del Method Room Air 03/22/22 06:50 O2 Flow Rate 8 03/20/22 10:05 Allergies Allergy/AdvReac Type Severity Reaction Status Date / Time metoclopramide AdvReac Mild Vomiting Verified 03/10/22 21:31 Home Medications Medication Instructions Recorded Confirmed Type albuterol sulfate 90 mcg/actuation 90 mcg inhalation QID PRN 09/05/21 03/11/22 History aerosol inhaler (ProAir HFA) Shortness Of Breath aspirin 81 mg tablet,delayed 81 mg PO DAILY 09/05/21 03/11/22 History release (Adult Low Dose Aspirin) atorvastatin 40 mg tablet (Lipitor) 40 mg PO DAILY 09/05/21 03/11/22 History carvedilol 3.125 mg tablet (Coreg) 3.125 mg PO Q12H 09/05/21 03/11/22 History empagliflozin 10 mg tablet 10 mg PO DAILY 09/05/21 03/11/22 History (Jardiance) fenofibrate 160 mg tablet 160 mg PO DAILY 09/05/21 03/11/22 History lisinopril 5 mg tablet (Zestril) 5 mg PO DAILY 09/05/21 03/11/22 History carbamazepine 200 mg tablet 200 mg PO Q8HR #90 tabs 09/07/21 03/11/22 Rx acetaminophen 300 mg-codeine 30 mg 1 tablet PO Q12H PRN Pain 03/11/22 03/11/22 History tablet doxycycline monohydrate 100 mg 100 mg Q12H 03/11/22 03/11/22 History capsule insulin glargine 100 unit/mL (3 45 unit subcut HS 03/11/22 03/11/22 History mL) subcutaneous pen (Lantus Solostar U-100 Insulin) olanzapine 20 mg tablet 10 mg PO Q12H 03/11/22 03/11/22 History levofloxacin 750 mg/150 mL in 5 % 750 mg IV Q24H 5 weeks #3,600 mL 03/18/22 Rx dextrose intravenous piggyback Laboratory Tests 03/21/22 03/21/22 03/21/22 07:51 07:51 08:24 WBC 15.5 K/mm3 H K/mm3 (4.5-10.0) RBC 3.15 M/mm3 L M/mm3 (4.6-6.20) Hgb 10.0 g/dL L g/dL (14.0-18.0) Hct 30.8 % L % (42.0-52.0) MCV 97.8 fl fl (80-100) MCH 31.7 pg pg (26-34) MCHC 32.5 g/dl g/dl (32-36) RDW 14.5 % % (11.5-14.5) Plt Count 711 k/mm3 H k/mm3 (150-375) MPV 9.1 fl fl (7.4-10.4) Immature Gran % (Auto) 2.8 % H % (0-0.5) Neut % (Auto) 70.3 % % (45.5-73.1) Lymph % (Auto) 12.9 % L % (18.3-44.2) [place] % (Auto) 10.1 % H % (2.6-8.5) Eos % (Auto) 3.4 % % (0-4.4) Baso % (Auto) 0.5 % % (0.2-1.2) Lymph # (Auto) 2.00 K/mm3 K/mm3 (0.9-3.2) [place] # (Auto) 1.6 K/mm3 H K/mm3 (0.1-0.6) Eos # (Auto) 0.5 K/mm3 H K/mm3 (0-0.3) Baso # (Auto) 0.1 K/mm3 K/mm3 (0.0-0.1) Abs Immat Gran (auto) 0.44 K/mm3 H K/mm3 (0.00-0.031) Absolute Neuts (auto) 10.9 K/mm3 H K/mm3 (1.3-6.7) Absolute Nucleated RBC 0.0 K/mm3 K/mm3 (0.0-0.012) Nucleated RBC % 0.0 % % (0.0-0.2) Sodium 135 mmol/L L mmol/L (137-145) Potassium 4.1 mmol/L mmol/L (3.4-5.0) Chloride 104 mmol/L mmol/L (98-107) Carbon Dioxide 22 mmol/L mmol/L (22-30) Anion Gap 9 mmol/L mmol/L (8-16) BUN 7 mg/dL L mg/dL (9-20) Creatinine 0.70 mg/dL mg/dL (0.7-1.3) Estim Creat Clear Calc 126 ml/min ml/min Estimated GFR
[2022-03-22] MEDS: LACTATED RINGERS 1,000 ML 30 ML IV CONT (07:13)
--- NOTE | 2022-03-22 07:36 | PCOTNOTE ---
Patient in procedure, will try to see patient for OT this PM.
--- NOTE | 2022-03-22 07:48 | WPDHPUPDATE1 ---
History and Physical Update Update Date/Time: 03/22/22 07:48 History and Physical has been reviewed, including an updated exam of the patient. There are NO changes in the patient's condition. Risks, benefits, and alternatives have been discussed and questions answered. Patient agrees to proceed with procedure.
[2022-03-22 08:45] LABS: Glucose Point of Care 94 mg/dl (65-105)
--- NOTE | 2022-03-22 08:59 | W.PM.PROC2 ---
Procedure Note - Detailed Date of Procedure 03/22/22 Pre-op Diagnosis Severe Sepsis,Left Foot Cellulitis,Osteomyelitis Post-op Diagnosis Same Procedure Performed Excisional Debridement left foot including bone. Percutaneous pin fixation 2nd toe. Surgeon Rashid Flower MD Telegraphic Service Dispatcher assistant unit forester Anesthesia General Indications 61-year-old gentleman with diabetes, neuropathy and peripheral arterial disease. Underwent debridement of his left foot 2 days prior. Noted to have extensive purulence and deep infection as well as osteomyelitis. Brought back today for repeat debridement evaluation of the wound and decision as to limb salvage versus amputation. Findings No areas of purulence or new infection noted. Good capillary refill in the toes. Description of Procedure Patient identified in the preoperative holding. Informed consent given. Operative extremity marked. Patient received intravenous antibiotics. Patient brought to the operating room where underwent general anesthetic by anesthesia team. Positioned supine on operating room table. Time-out performed confirming the patient, site of the surgery and the plan. Left foot prepped draped usual sterile surgical fashion using a Betadine prep solution. The previous sutures that were placed at surgery 2 days ago were removed with a suture scissor. The wound was then inspected. There was no purulent fluid or new areas of infection noted in the wound itself. There was some necrotic tissue including the subcutaneous tissue and muscle as well as the end of the 2nd metatarsal. Excisional debridement done with a rongeur and 15 blade knife. Any loose or nonviable tissue was sharply excised and passed off. The distal end of the 2nd metatarsal in the proximal end of the 2nd toe proximal phalanx was debrided with a rongeur. Wound thoroughly irrigated with saline solution. 0.062 in K-wire then used to fix the 2nd toe. This was placed antegrade fashion from the proximal phalanx out the end of the toe and then retrograded into the intramedullary canal of the 2nd metatarsal. This was verified with image intensification. Wound then closed with 0 Prolene interrupted suture. Sterile dressing applied. The patient was then woken from anesthesia, extubated and taken to the recovery room in stable condition. All sponge, needle, instrument counts were correct at the end of the case. Estimated Blood Loss 10 Tourniquet Time 0 Urine Output 350 Drains No Packing No Pathology None sent Complications None Condition Stable Disposition PACU
--- NOTE | 2022-03-22 09:35 | PC.NURSE ---
patient returned from surgery
[2022-03-22] MEDS: SENNA/DOCUSATE SODIUM TABLET 2 TAB PO (09:42)
[2022-03-22] MEDS: ATORVASTATIN 40 MG TABLET PO (09:43)
[2022-03-22] MEDS: OLANZapine 5 MG TABLET 10 MG PO ×2 (09:43→20:11)
[2022-03-22] MEDS: polyethylene glycoL 3350 17 GM POWD.PACK PO (09:43)
[2022-03-22] MEDS: FINASTERIDE 5 MG TABLET PO (09:43)
[2022-03-22] MEDS: LIDOCAINE 5% PATCH 1 PATCH TRANSDERM (09:43)
[2022-03-22] MEDS: carvediloL 3.125 MG TABLET PO ×2 (09:43→20:12)
[2022-03-22] MEDS: TAMSULOSIN HCL 0.4 MG CAPSULE PO (09:44)
[2022-03-22] MEDS: FENOFIBRATE 160 MG TABLET PO (09:44)
[2022-03-22] MEDS: lisinopriL 5 MG TABLET PO (09:44)
[2022-03-22 11:49] LABS: Glucose Point of Care 189 mg/dl (65-105)
--- NOTE | 2022-03-22 13:00 | PCOTNOTE ---
Attempted to see patient, too groggy post debridement procedure earlier in order to actively participate. Will continue per plan of care to see for OT.
[2022-03-22] MEDS: carBAMazepine 200 MG TABLET PO ×2 (13:32→21:00)
[2022-03-22 16:40] LABS: Glucose Point of Care 153 mg/dl (65-105)
--- NOTE | 2022-03-22 16:42 | PM.IMPN ---
Progress Note: A&P Assessment and Plan (1) Severe sepsis: Code(s): A41.9 - Sepsis, unspecified organism; R65.20 - Severe sepsis without septic shock Status: Acute Assessment and Plan: Resolved, place PICC line, continue Levaquin for an additional 5 weeks (2) Cellulitis of foot, left: Code(s): L03.116 - Cellulitis of left lower limb Status: Acute Assessment and Plan: as above (3) Acute osteomyelitis of foot: Code(s): M86.179 - Other acute osteomyelitis, unspecified ankle and foot Status: Acute Assessment and Plan: Appreciate orthopedic surgery consultation, infectious disease pharmacist consult as well, PICC line being placed for long-term antibiotics, has gone to the OR twice for debridement, washout and pin fixation (4) Chronic anemia: Code(s): D64.9 - Anemia, unspecified Status: Acute Assessment and Plan: Iron deficiency anemia, continue ferrous sulfate, stable (5) Coronary artery disease: Code(s): I25.10 - Atherosclerotic heart disease of [place] coronary artery without angina pectoris Status: Acute Assessment and Plan: Stable, continue current management (6) Hypertension: Code(s): I10 - Essential (primary) hypertension Status: Acute Assessment and Plan: Stable, continue current management (7) Type 2 diabetes mellitus: Code(s): E11.9 - Type 2 diabetes mellitus without complications Status: Acute Assessment and Plan: Controlled, continue current management (8) Seizure disorder: Code(s): G40.909 - Epilepsy, unspecified, not intractable, without status epilepticus Status: Acute Assessment and Plan: Stable on no medications (9) Chronic obstructive pulmonary disease: Code(s): J44.9 - Chronic obstructive pulmonary disease, unspecified Status: Acute Assessment and Plan: Stable (10) Acute metabolic encephalopathy: Code(s): G93.41 - Metabolic encephalopathy Status: Acute Assessment and Plan: resolved (11) Diabetic foot ulcer: Qualifiers: Diabetic foot ulcer location: toe Diabetes mellitus type: type 2 Laterality: left Non-pressure ulcer stage: with necrosis of bone Qualified Code(s): E11.621 - Type 2 diabetes mellitus with foot ulcer; L97.524 - Non-pressure chronic ulcer of other 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 Code(s): E11.621 - Type 2 diabetes mellitus with foot ulcer; L97.509 - Non-pressure chronic ulcer of other part of unspecified foot with unspecified severity Status: Acute Assessment and Plan: as above (12) BPH (benign prostatic hyperplasia): Code(s): N40.0 - Benign prostatic hyperplasia without lower urinary tract symptoms Status: Acute Assessment and Plan: Osorio removed, voiding okay (13) Bacteremia: Code(s): R78.81 - Bacteremia Status: Acute Assessment and Plan: Continue IV antibiotics, repeat blood cx from 03/14 NGTD Plan DVT prophylaxis with SCDs GI prophylaxis not indicated Code status full code Subjective Date/time seen: 03/22/22 16:42 Interval history: Patient back to the OR today. No overnight events noted. No chest pain or shortness of breath. No nausea, vomiting or diarrhea. No fevers or chills. Review of Systems Review of Systems: 12 point review of systems was assessed and was negative except as noted in the HPI Exam Narrative: General: No acute distress, alert and oriented per baseline HEENT: Atraumatic, normocephalic, mucous membranes moist CV: Regular rate and rhythm, S1, S2 Lungs: Clear to auscultation bilaterally, no rales or crackles noted, no wheezes, good air entry Abdomen: Soft, nontender, nondistended Extremities: Normal to inspection, left lower extremity in wrapping, dressing is clean dry and intact Psych: Euthymic, candy
[2022-03-22] MEDS: INSULIN GLARGINE (*BKC) 100 UNITS/ML 45 UNITS SUB-Q (20:12)
[2022-03-22 20:49] LABS: Glucose Point of Care 141 mg/dl (65-105)
[2022-03-22] MEDS: ACETAMINOPHEN 325 MG TABLET 650 MG PO (21:31)
[2022-03-23] VITALS (7 sets, daily range): BP systolic 96–109; BP diastolic 54–62; PULSE 71–84; RESP 16–18; TEMP 36.1–36.9; O2SAT 94–97
[2022-03-23] MEDS: ceFAZolin 2 GM/D5W 50 ML 2 GM/50 ML BAG IVPB ×3 (05:07→21:24)
[2022-03-23] MEDS: CENTRAL LINE FLUSH 10 ML IV PUSH ×3 (05:08→22:25)
[2022-03-23] MEDS: carBAMazepine 200 MG TABLET PO ×3 (06:30→21:22)
[2022-03-23 06:37] LABS: Basophils Absolute Auto 0.1 K/mm3 (0.0-0.1); Basophils Percent Auto 0.7 % (0.2-1.2); Eosinophils Absolute Auto 0.4 K/mm3 (0-0.3); Hematocrit 31.8 % (42.0-52.0); Hemoglobin 10.2 g/dL (14.0-18.0); Immature Granulocyte Absolute 0.37 K/mm3 (0.00-0.031); Immature Granulocyte Percent A 3.9 % (0-0.5); Lymphocytes Absolute Auto 2.61 K/mm3 (0.9-3.2); Lymphocytes Percent Auto 27.8 % (18.3-44.2); Mean Corpuscular HGB Conc 32.1 g/dl (32-36); Mean Corpuscular Hemoglobin 31.3 pg (26-34); Mean Corpuscular Volume 97.5 fl (80-100); Mean Platelet Volume 9.1 fl (7.4-10.4); Monocytes Absolute Auto 1.2 K/mm3 (0.1-0.6); Monocytes Percent Auto 12.7 % (2.6-8.5); Neutrophils Absolute Auto 4.8 K/mm3 (1.3-6.7); Neutrophils Percent Auto 50.9 % (45.5-73.1); Platelet Count Result 725 k/mm3 (150-375); Red Blood Count 3.26 M/mm3 (4.6-6.20); Red Cell Distribution Width 14.1 % (11.5-14.5); White Blood Count 9.4 K/mm3 (4.5-10.0)
[2022-03-23 06:49] LABS: Alanine Aminotransferase 15 U/L (6-50); Albumin Level 3.6 g/dL (3.5-5.1); Alkaline Phosphatase 88 U/L (38-126); Anion Gap 8 mmol/L (8-16); Aspartate Amino Transferase 22 U/L (17-59); Bilirubin,Total 0.2 mg/dL (0.2-1.3); Blood Urea Nitrogen 8 mg/dL (9-20); Calcium 8.5 mg/dL (8.4-10.2); Carbon Dioxide 23 mmol/L (22-30); Chloride 102 mmol/L (98-107); Estimated CRCL calculation 111 ml/min; Estimated Glomerular Filt Rate > 60; Glucose 95 mg/dL (65-110); Potassium 3.7 mmol/L (3.4-5.0); Sodium 133 mmol/L (137-145)
[2022-03-23 08:35] LABS: Glucose Point of Care 105 mg/dl (65-105)
[2022-03-23] MEDS: LIDOCAINE 5% PATCH 1 PATCH TRANSDERM (08:54)
[2022-03-23] MEDS: ATORVASTATIN 40 MG TABLET PO (08:54)
[2022-03-23] MEDS: FENOFIBRATE 160 MG TABLET PO (08:54)
[2022-03-23] MEDS: TAMSULOSIN HCL 0.4 MG CAPSULE PO (08:54)
[2022-03-23] MEDS: carvediloL 3.125 MG TABLET PO ×2 (08:54→21:22)
[2022-03-23] MEDS: ENOXAPARIN 40 MG/0.4 ML SYRINGE SUB-Q (08:54)
[2022-03-23] MEDS: FINASTERIDE 5 MG TABLET PO (08:55)
[2022-03-23] MEDS: EMPAGLIFLOZIN 10 MG TABLET PO (08:55)
[2022-03-23] MEDS: OLANZapine 5 MG TABLET 10 MG PO ×2 (08:55→21:23)
[2022-03-23] MEDS: lisinopriL 5 MG TABLET PO (08:55)
[2022-03-23] MEDS: ASPIRIN 81 MG ENTERIC TABLET PO (08:55)
[2022-03-23] MEDS: SENNA/DOCUSATE SODIUM TABLET 2 TAB PO (08:55)
--- NOTE | 2022-03-23 09:40 | PM.PNORT ---
Progress Note: A&P Assessment and Plan (1) Diabetic foot ulcer: Qualifiers: Diabetic foot ulcer location: toe Diabetes mellitus type: type 2 Laterality: left Non-pressure ulcer stage: with necrosis of bone Qualified Code(s): E11.621 - Type 2 diabetes mellitus with foot ulcer; L97.524 - Non-pressure chronic ulcer of other 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 Code(s): E11.621 - Type 2 diabetes mellitus with foot ulcer; L97.509 - Non-pressure chronic ulcer of other part of unspecified foot with unspecified severity Status: Acute Assessment and Plan: POD #1: Excisional Debridement left foot including bone.? Percutaneous pin fixation 2nd toe. POD #3: Left foot excision osteomyelitis, excisional debridement diabetic foot ulcer muscle layer WBC with improvement today. Post op shoe with weight bearing on heel if needed. Continue IV antibiotics. Intraoperative cultures pending, preliminary results with no organisms. Await final. Plan for incisional wound VAC placement today by [facility] wound care nurses. Keep in place until discharge. Will plan for transition to dry dressings with Transfer at discharge. Plan: SNF for dressing assistance and IV antibiotics pending wound culture results to ensure appropriate antibiotic choice. Patient will require follow up in the outpatient orthopedic clinic and eventual transfer back to [facility] due to insurance constraints. (2) Cellulitis of foot, left: Code(s): L03.116 - Cellulitis of left lower limb Status: Acute Assessment and Plan: Improved redness/warmth/swelling s/p operative intervention by Dr. Flower. Incision and plantar wound support at this time. (3) Bacteremia: Code(s): R78.81 - Bacteremia Status: Acute Assessment and Plan: IV Levaquin currently. Awaiting intraoperative cultures. (4) Peripheral arterial occlusive disease: Code(s): I77.9 - Disorder of arteries and arterioles, unspecified Status: Acute Assessment and Plan: Will benefit from vascular workup and evaluation as an outpatient. (5) Osteomyelitis of toe of left foot: Code(s): M86.9 - Osteomyelitis, unspecified Status: Acute Assessment and Plan: s/p surgical intervention. IV antibiotics. Subjective Subjective Date/Time Seen: 03/23/22 09:40 Post Op day: 1 Interval history: POD #1: Excisional Debridement left foot including bone. Percutaneous pin fixation 2nd toe. POD #3: Left foot excision osteomyelitis, excisional debridement diabetic foot ulcer muscle layer Patient doing well. States he feels better, pain well controlled. Sitting up at the side of the bed. Concerned about long-term outcome of his left foot. Review of Systems Review of Systems: All systems reviewed & are unremarkable except as noted in HPI and below (HPI ) Exam Const: General: comfortable and no acute distress Resp: Effort & Inspection: normal respiratory effort GI: Inspection: non-distended GI Palp: Yes Soft to palpation Skin: Wounds: wounds noted (See extremity ) Extrem: Left lower extremity: foot Details: vascular exam Details: dorsalis pedis pulse present (requires doppler ) and abnormal capillary refill (sluggish ) Location: of all toes and motor-sensory exam two point discrimination abnormal and light-touch abnormal Other: Incision on the dorsal aspect of the forefoot over the 2nd metatarsal, well-approximated. Sutures intact. Mild serosanguineous drainage. No purulence. Wound/ulcer on the plantar aspect approximated with sutures. Pin fixation in the 2nd toe in place. Pin site cleaned. Psych: Mental Status: mental status grossly normal Affect: normal affect Objective Data Vital Signs Vital Signs: Vital Signs - 24 hr 03/22/22 09:43 03/22/22 09:50 03/22/22 10:20 Temperature 36.3 C L 36.3 C L Pulse Rate 86 78 87 Respiratory Rate 14 14 Blood Pressure 104/68 102/73 Pulse Oximetry 97 98 Oxygen D
--- NOTE | 2022-03-23 10:29 | PM.IMPN ---
Progress Note: A&P Assessment and Plan (1) Acute osteomyelitis of foot: Code(s): M86.179 - Other acute osteomyelitis, unspecified ankle and foot Status: Acute Assessment and Plan: Appreciate orthopedic surgery consultation, infectious disease pharmacist consult as well, PICC line being placed for long-term antibiotics due to osteomyelitis POD #1: Excisional Debridement left foot including bone.? Percutaneous pin fixation 2nd toe. POD #3: Left foot excision osteomyelitis, excisional debridement diabetic foot ulcer muscle layer PICC line placed, continue Levaquin for a total of 6 weeks from negative blood cultures follow-up intraoperative cultures to confirm appropriate antibiotic leukocytosis down to 9 today (2) Chronic anemia: Code(s): D64.9 - Anemia, unspecified Status: Acute Assessment and Plan: Iron deficiency anemia, continue ferrous sulfate, stable (3) Coronary artery disease: Code(s): I25.10 - Atherosclerotic heart disease of [place] coronary artery without angina pectoris Status: Acute Assessment and Plan: Stable, continue current management (4) Hypertension: Code(s): I10 - Essential (primary) hypertension Status: Acute Assessment and Plan: Stable, continue current management (5) Type 2 diabetes mellitus: Code(s): E11.9 - Type 2 diabetes mellitus without complications Status: Acute Assessment and Plan: Controlled, continue current management (6) Seizure disorder: Code(s): G40.909 - Epilepsy, unspecified, not intractable, without status epilepticus Status: Acute Assessment and Plan: Stable on no medications (7) Severe sepsis: Code(s): A41.9 - Sepsis, unspecified organism; R65.20 - Severe sepsis without septic shock Status: Acute Assessment and Plan: Resolved (8) Chronic obstructive pulmonary disease: Code(s): J44.9 - Chronic obstructive pulmonary disease, unspecified Status: Acute Assessment and Plan: Stable (9) Acute metabolic encephalopathy: Code(s): G93.41 - Metabolic encephalopathy Status: Acute Assessment and Plan: resolved (10) Diabetic foot ulcer: Qualifiers: Diabetes mellitus type: type 2 Diabetic foot ulcer location: toe Laterality: left Non-pressure ulcer stage: with necrosis of bone Qualified Code(s): E11.621 - Type 2 diabetes mellitus with foot ulcer; L97.524 - Non-pressure chronic ulcer of other 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 Code(s): E11.621 - Type 2 diabetes mellitus with foot ulcer; L97.509 - Non-pressure chronic ulcer of other part of unspecified foot with unspecified severity Status: Acute Assessment and Plan: as above (11) BPH (benign prostatic hyperplasia): Code(s): N40.0 - Benign prostatic hyperplasia without lower urinary tract symptoms Status: Acute Assessment and Plan: Osorio removed, voiding okay (12) Bacteremia: Code(s): R78.81 - Bacteremia Status: Acute Assessment and Plan: Continue IV antibiotics, repeat blood cx from 03/14 NGTD Intraoperative cultures pending Wound culture from March 20 gram stain shows no organisms seen (13) Hyponatremia: Code(s): E87.1 - Hypo-osmolality and hyponatremia Status: Acute Assessment and Plan: Sodium down to 133 from 136 today, suspect this is due to fluid infused during the OR, will hold IV fluids and reassess later today Plan DVT prophylaxis with SCDs GI prophylaxis not indicated Code status full code Subjective Date/time seen: 03/23/22 10:29 Interval history: Patient resting comfortably, no complaints. No overnight events noted. No chest pain or shortness of breath. No nausea, vomiting or diarrhea. No fevers or chills. Review of Systems Review of Systems: 12 point review of systems was assessed and was negative except as noted in the HPI Exam Narrat
--- NOTE | 2022-03-23 11:01 | PCOTNOTE ---
Attempted to see patient this AM, patient unable to arouse. Will continue OT per plan of care.
--- NOTE | 2022-03-23 11:31 | PCPTNOTE ---
Patient refused treatment this session. Patient reported the orthopedic [facility] PA told him not to put any weight on his (L) foot so he is not getting up. RN aware.
[2022-03-23 12:05] LABS: Glucose Point of Care 119 mg/dl (65-105)
[2022-03-23 12:42] LABS: Creatinine Urine 61.5 mg/dL
[2022-03-23 12:44] LABS: Sodium Urine Random 81 meq/L
--- NOTE | 2022-03-23 14:37 | WPDANESPN ---
Anes - Prog Note Post-Op Date/Time: 03/23/22 14:37 Cardiovascular status: normal Respiratory status: normal Airway patency: baseline Mental status: baseline Post-Op hydration status: normal Vital Signs: Last Vital Signs Temp 98.5 F 03/23/22 14:04 Pulse 77 03/23/22 14:04 Resp 16 03/23/22 14:04 BP 109/54 L 03/23/22 14:04 Pulse Ox 97 03/23/22 14:04 O2 Del Method Room Air 03/23/22 08:50 O2 Flow Rate 6 03/22/22 08:50 Pain Score (VAS): 06/29 I/O: Intake & Output 03/22/22 03/23/22 03/23/22 23:59 07:59 15:59 Intake Total 710 50 540 Output Total 1300 500 200 Balance -590 -450 340 Laboratory Tests 03/23/22 06:29 03/22/22 03/22/22 03/23/22 16:34 20:10 06:29 WBC 9.4 RBC 3.26 L Hgb 10.2 L Hct 31.8 L MCV 97.5 MCH 31.3 MCHC 32.1 RDW 14.1 Plt Count 725 H MPV 9.1 Immature Gran % (Auto) 3.9 H Neut % (Auto) 50.9 Lymph % (Auto) 27.8 Cloud % (Auto) 12.7 H Eos % (Auto) 4.0 Baso % (Auto) 0.7 Lymph # (Auto) 2.61 Cloud # (Auto) 1.2 H Eos # (Auto) 0.4 H Baso # (Auto) 0.1 Abs Immat Gran (auto) 0.37 H Absolute Neuts (auto) 4.8 Absolute Nucleated RBC 0.0 Nucleated RBC % 0.0 Sodium Potassium Chloride Carbon Dioxide Anion Gap BUN Creatinine Estim Creat Clear Calc Estimated GFR Glucose POC Capillary Glucose 153 H 141 H Calcium Total Bilirubin AST ALT Alkaline Phosphatase Total Protein Albumin Ur Random Sodium Urine Creatinine 03/23/22 03/23/22 03/23/22 06:29 08:31 12:00 WBC RBC Hgb Hct MCV MCH MCHC RDW Plt Count MPV Immature Gran % (Auto) Neut % (Auto) Lymph % (Auto) Cloud % (Auto) Eos % (Auto) Baso % (Auto) Lymph # (Auto) Cloud # (Auto) Eos # (Auto) Baso # (Auto) Abs Immat Gran (auto) Absolute Neuts (auto) Absolute Nucleated RBC Nucleated RBC % Sodium 133 L Potassium 3.7 Chloride 102 Carbon Dioxide 23 Anion Gap 8 BUN 8 L Creatinine 0.80 Estim Creat Clear Calc 111 Estimated GFR > 60 Glucose 95 POC Capillary Glucose 105 119 H Calcium 8.5 Total Bilirubin 0.2 AST 22 ALT 15 Alkaline Phosphatase 88 Total Protein 7.0 Albumin 3.6 Ur Random Sodium Urine Creatinine 03/23/22 03/23/22 12:02 12:02 WBC RBC Hgb Hct MCV MCH MCHC RDW Plt Count MPV Immature Gran % (Auto) Neut % (Auto) Lymph % (Auto) Cloud % (Auto) Eos % (Auto) Baso % (Auto) Lymph # (Auto) Cloud # (Auto) Eos # (Auto) Baso # (Auto) Abs Immat Gran (auto) Absolute Neuts (auto) Absolute Nucleated RBC Nucleated RBC % Sodium Pending Potassium Pending Chloride Pending Carbon Dioxide Pending Anion Gap Pending BUN Pending Creatinine Pending Estim Creat Clear Calc Pending Estimated GFR Pending Glucose Pending POC Capillary Glucose Calcium Pending Total Bilirubin AST ALT Alkaline Phosphatase Total Protein Albumin Ur Random Sodium 81 Urine Creatinine 61.5 Microbiology 03/20/22 09:00 Foot Left Wound Culture - Preliminary Staphylococcus aureus Post-procedural complaints: none Patient Feedback: Patient satisfied with anesthetic care.
[2022-03-23] MEDS: HYDROcodone/acetaminophen (*CRX) 5-325 MG TABLET 1 TAB PO ×2 (15:29→21:23)
[2022-03-23] MEDS: CENTRAL LINE FLUSH 20 ML IV PUSH (15:29)
[2022-03-23 15:49] LABS: Anion Gap 14 mmol/L (8-16); Blood Urea Nitrogen 11 mg/dL (9-20); Carbon Dioxide 23 mmol/L (22-30); Chloride 99 mmol/L (98-107); Estimated CRCL calculation 90 ml/min; Estimated Glomerular Filt Rate > 60; Glucose 138 mg/dL (65-110); Potassium 4.3 mmol/L (3.4-5.0); Sodium 136 mmol/L (137-145)
[2022-03-23 16:33] LABS: Glucose Point of Care 119 mg/dl (65-105)
[2022-03-23 20:07] LABS: Glucose Point of Care 171 mg/dl (65-105)
[2022-03-23] MEDS: CALCIUM CARBONATE (TUMS) 500 MG (200 MG ELEMENTAL) PO (21:22)
[2022-03-23] MEDS: INSULIN GLARGINE (*BKC) 100 UNITS/ML 45 UNITS SUB-Q (21:24)
[2022-03-24] VITALS (8 sets, daily range): BP systolic 95–120; BP diastolic 59–83; PULSE 76–94; RESP 14–18; TEMP 36.5–36.8; O2SAT 97–99
[2022-03-24] MEDS: carBAMazepine 200 MG TABLET PO ×3 (05:50→21:16)
[2022-03-24] MEDS: ceFAZolin 2 GM/D5W 50 ML 2 GM/50 ML BAG IVPB ×3 (05:50→21:17)
[2022-03-24 06:14] LABS: Basophils Absolute Auto 0.1 K/mm3 (0.0-0.1); Basophils Percent Auto 0.8 % (0.2-1.2); Eosinophils Absolute Auto 0.4 K/mm3 (0-0.3); Eosinophils Percent Auto 4.5 % (0-4.4); Hematocrit 32.6 % (42.0-52.0); Hemoglobin 10.6 g/dL (14.0-18.0); Immature Granulocyte Absolute 0.22 K/mm3 (0.00-0.031); Immature Granulocyte Percent A 2.6 % (0-0.5); Lymphocytes Absolute Auto 2.32 K/mm3 (0.9-3.2); Lymphocytes Percent Auto 26.9 % (18.3-44.2); Mean Corpuscular HGB Conc 32.5 g/dl (32-36); Mean Corpuscular Hemoglobin 31.5 pg (26-34); Mean Corpuscular Volume 96.7 fl (80-100); Mean Platelet Volume 9.2 fl (7.4-10.4); Monocytes Absolute Auto 1.2 K/mm3 (0.1-0.6); Monocytes Percent Auto 13.4 % (2.6-8.5); Neutrophils Absolute Auto 4.5 K/mm3 (1.3-6.7); Neutrophils Percent Auto 51.8 % (45.5-73.1); Platelet Count Result 686 k/mm3 (150-375); Red Blood Count 3.37 M/mm3 (4.6-6.20); Red Cell Distribution Width 14.2 % (11.5-14.5); White Blood Count 8.6 K/mm3 (4.5-10.0)
[2022-03-24 06:25] LABS: Alanine Aminotransferase 14 U/L (6-50); Albumin Level 3.8 g/dL (3.5-5.1); Alkaline Phosphatase 85 U/L (38-126); Anion Gap 10 mmol/L (8-16); Aspartate Amino Transferase 23 U/L (17-59); Bilirubin,Total 0.2 mg/dL (0.2-1.3); Blood Urea Nitrogen 15 mg/dL (9-20); Calcium 8.8 mg/dL (8.4-10.2); Carbon Dioxide 22 mmol/L (22-30); Chloride 102 mmol/L (98-107); Estimated CRCL calculation 99 ml/min; Estimated Glomerular Filt Rate > 60; Glucose 104 mg/dL (65-110); Potassium 4.2 mmol/L (3.4-5.0); Sodium 134 mmol/L (137-145)
[2022-03-24 08:34] LABS: Glucose Point of Care 102 mg/dl (65-105)
[2022-03-24] MEDS: ENOXAPARIN 40 MG/0.4 ML SYRINGE SUB-Q (08:57)
[2022-03-24] MEDS: polyethylene glycoL 3350 17 GM POWD.PACK PO (08:57)
[2022-03-24] MEDS: CENTRAL LINE FLUSH 10 ML IV PUSH ×3 (08:57→21:17)
[2022-03-24] MEDS: carvediloL 3.125 MG TABLET PO ×2 (08:58→21:15)
[2022-03-24] MEDS: SENNA/DOCUSATE SODIUM TABLET 2 TAB PO ×2 (08:58→17:38)
[2022-03-24] MEDS: ASPIRIN 81 MG ENTERIC TABLET PO (08:58)
[2022-03-24] MEDS: OLANZapine 5 MG TABLET 10 MG PO ×2 (08:58→21:15)
[2022-03-24] MEDS: ATORVASTATIN 40 MG TABLET PO (08:58)
[2022-03-24] MEDS: FENOFIBRATE 160 MG TABLET PO (08:58)
[2022-03-24] MEDS: TAMSULOSIN HCL 0.4 MG CAPSULE PO (08:59)
[2022-03-24] MEDS: FINASTERIDE 5 MG TABLET PO (08:59)
[2022-03-24] MEDS: LIDOCAINE 5% PATCH 1 PATCH TRANSDERM (08:59)
[2022-03-24] MEDS: lisinopriL 5 MG TABLET PO (08:59)
[2022-03-24] MEDS: EMPAGLIFLOZIN 10 MG TABLET PO (09:00)
[2022-03-24 11:49] LABS: Glucose Point of Care 132 mg/dl (65-105)
[2022-03-24] MEDS: ALTEPLASE 2 MG VIAL (CATHFLO) IV PUSH ×2 (12:21→14:47)
[2022-03-24] MEDS: HYDROcodone/acetaminophen (*CRX) 5-325 MG TABLET 1 TAB PO ×2 (12:26→18:28)
--- NOTE | 2022-03-24 12:37 | PM.IMPN ---
Progress Note: A&P Assessment and Plan (1) Acute osteomyelitis of foot: Code(s): M86.179 - Other acute osteomyelitis, unspecified ankle and foot Status: Acute Assessment and Plan: Appreciate orthopedic surgery consultation, infectious disease pharmacist consult as well, PICC line being placed for long-term antibiotics due to osteomyelitis POD #1: Excisional Debridement left foot including bone.? Percutaneous pin fixation 2nd toe. POD #3: Left foot excision osteomyelitis, excisional debridement diabetic foot ulcer muscle layer PICC line placed, continue Levaquin for a total of 6 weeks from negative blood cultures cx noted will need to speak with ortho re procedure to make decision regarding abx (2) Chronic anemia: Code(s): D64.9 - Anemia, unspecified Status: Acute Assessment and Plan: Iron deficiency anemia, continue ferrous sulfate, stable (3) Coronary artery disease: Code(s): I25.10 - Atherosclerotic heart disease of [place] coronary artery without angina pectoris Status: Acute Assessment and Plan: Stable, continue current management (4) Hypertension: Code(s): I10 - Essential (primary) hypertension Status: Acute Assessment and Plan: Stable, continue current management (5) Type 2 diabetes mellitus: Code(s): E11.9 - Type 2 diabetes mellitus without complications Status: Acute Assessment and Plan: Controlled, continue current management (6) Seizure disorder: Code(s): G40.909 - Epilepsy, unspecified, not intractable, without status epilepticus Status: Acute Assessment and Plan: Stable on no medications (7) Severe sepsis: Code(s): A41.9 - Sepsis, unspecified organism; R65.20 - Severe sepsis without septic shock Status: Acute Assessment and Plan: Resolved (8) Chronic obstructive pulmonary disease: Code(s): J44.9 - Chronic obstructive pulmonary disease, unspecified Status: Acute Assessment and Plan: Stable (9) Acute metabolic encephalopathy: Code(s): G93.41 - Metabolic encephalopathy Status: Acute Assessment and Plan: resolved (10) Diabetic foot ulcer: Qualifiers: Diabetic foot ulcer location: toe Diabetes mellitus type: type 2 Laterality: left Non-pressure ulcer stage: with necrosis of bone Qualified Code(s): E11.621 - Type 2 diabetes mellitus with foot ulcer; L97.524 - Non-pressure chronic ulcer of other 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 Code(s): E11.621 - Type 2 diabetes mellitus with foot ulcer; L97.509 - Non-pressure chronic ulcer of other part of unspecified foot with unspecified severity Status: Acute Assessment and Plan: as above (11) BPH (benign prostatic hyperplasia): Code(s): N40.0 - Benign prostatic hyperplasia without lower urinary tract symptoms Status: Acute Assessment and Plan: Osorio removed, voiding okay (12) Bacteremia: Code(s): R78.81 - Bacteremia Status: Acute Assessment and Plan: Continue IV antibiotics, repeat blood cx from 03/14 NGTD Intraoperative cultures pending Wound culture from March 20 gram stain shows no organisms seen (13) Hyponatremia: Code(s): E87.1 - Hypo-osmolality and hyponatremia Status: Acute Assessment and Plan: Sodium down to 133 from 136 today, suspect this is due to fluid infused during the OR, will hold IV fluids and reassess later today Plan DVT prophylaxis with SCDs GI prophylaxis not indicated Code status full code Subjective Date/time seen: 03/24/22 12:37 no new complaints Exam Narrative: General: No acute distress, alert and oriented per baseline HEENT: Atraumatic, normocephalic, mucous membranes moist CV: Regular rate and rhythm, S1, S2 Lungs: Clear to auscultation bilaterally, no rales or crackles noted, no wheezes, good air entry Abdomen: Soft, nontender, nondistended Extre
[2022-03-24] MEDS: CALCIUM CARBONATE (TUMS) 500 MG (200 MG ELEMENTAL) PO ×2 (15:51→21:23)
[2022-03-24 16:55] LABS: Glucose Point of Care 151 mg/dl (65-105)
--- NOTE | 2022-03-24 17:10 | PM.PNORT ---
Progress Note: A&P Assessment and Plan (1) Diabetic foot ulcer: Qualifiers: Diabetic foot ulcer location: toe Diabetes mellitus type: type 2 Laterality: left Non-pressure ulcer stage: with necrosis of bone Qualified Code(s): E11.621 - Type 2 diabetes mellitus with foot ulcer; L97.524 - Non-pressure chronic ulcer of other 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 Code(s): E11.621 - Type 2 diabetes mellitus with foot ulcer; L97.509 - Non-pressure chronic ulcer of other part of unspecified foot with unspecified severity Status: Acute Assessment and Plan: POD #1: Excisional Debridement left foot including bone.? Percutaneous pin fixation 2nd toe. POD #3: Left foot excision osteomyelitis, excisional debridement diabetic foot ulcer muscle layer Wound VAC placed yesterday. Cultures reviewed. Staph aureus on repeat cultures from wound March 20. Sensitivities pending. Continue Ancef and Levaquin until sensitivities resulted. (2) Cellulitis of foot, left: Code(s): L03.116 - Cellulitis of left lower limb Status: Acute Assessment and Plan: Improved redness/warmth/swelling s/p operative intervention by Dr. Flower. Incision and plantar wound support at this time. (3) Bacteremia: Code(s): R78.81 - Bacteremia Status: Acute Assessment and Plan: IV Levaquin currently. Awaiting intraoperative cultures. (4) Peripheral arterial occlusive disease: Code(s): I77.9 - Disorder of arteries and arterioles, unspecified Status: Acute Assessment and Plan: Will benefit from vascular workup and evaluation as an outpatient. (5) Osteomyelitis of toe of left foot: Code(s): M86.9 - Osteomyelitis, unspecified Status: Acute Assessment and Plan: s/p surgical intervention. IV antibiotics. Subjective Subjective Date/Time Seen: 03/24/22 17:10 Post Op day: 2 Principal diagnosis: Left diabetic foot ulcer with osteo Interval history: wound VAC yesterday. No new complaints. Exam Const: General: comfortable and no acute distress Resp: Effort & Inspection: normal respiratory effort GI: Inspection: non-distended GI Palp: Yes Soft to palpation Skin: Wounds: wounds noted (See extremity ) Extrem: Left lower extremity: foot Details: vascular exam Details: dorsalis pedis pulse present (requires doppler ) and abnormal capillary refill (sluggish ) Location: of all toes and motor-sensory exam two point discrimination abnormal and light-touch abnormal Other: Incision on the dorsal aspect of the forefoot over the 2nd metatarsal, well-approximated. Sutures intact. Mild serosanguineous drainage. No purulence. Wound/ulcer on the plantar aspect approximated with sutures. Pin fixation in the 2nd toe in place. Pin site cleaned. Psych: Mental Status: mental status grossly normal Affect: normal affect Objective Data Vital Signs Vital Signs: Vital Signs - 24 hr 03/23/22 18:00 03/23/22 20:41 03/23/22 21:22 Temperature 97 F L 97.7 F Pulse Rate 71 81 81 Respiratory Rate 16 16 Blood Pressure 104/55 L 101/57 L Pulse Oximetry 94 96 Oxygen Delivery 03/24/22 01:01 03/24/22 05:56 03/24/22 08:58 Temperature 97.8 F 98.1 F Pulse Rate 76 82 82 Respiratory Rate 18 18 Blood Pressure 109/59 L 100/68 Pulse Oximetry 97 98 Oxygen Delivery 03/24/22 09:40 03/24/22 09:17 03/24/22 13:39 Temperature 98.2 F 97.9 F Pulse Rate 94 90 Respiratory Rate 16 16 Blood Pressure 120/83 95/60 L Pulse Oximetry 97 99 Oxygen Delivery Room Air Intake/Output Intake/Output: Intake & Output 03/21/22 03/22/22 03/23/22 03/24/22 23:59 23:59 23:59 23:59 Intake Total 1220 1620 1600 1130 Output Total 3300 2800 1100 950 Balance -2080 -1180 500 180 Meds/Results Medications: Active Medications Generic Name Dose Route Start Last Admin Trade Name Freq PRN Reason Stop Dose Admin Acetaminophen 650 mg 03/20/22 10:43 03/22/22 21:31 Ac
[2022-03-24] MEDS: ONDANSETRON INJ 4 MG/2 ML VIAL IV PUSH (18:27)
[2022-03-24] MEDS: ACETAMINOPHEN 325 MG TABLET 650 MG PO (21:00)
[2022-03-24] MEDS: INSULIN GLARGINE (*BKC) 100 UNITS/ML 45 UNITS SUB-Q (21:09)
[2022-03-25 00:05] LABS: Glucose Point of Care 175 mg/dl (65-105)
[2022-03-25 01:00] VITALS: BP 112/60; PULSE 78; RESP 16; TEMP 36.9; O2SAT 97
[2022-03-25] MEDS: CENTRAL LINE FLUSH 10 ML IV PUSH (05:27)
[2022-03-25] MEDS: carBAMazepine 200 MG TABLET PO (05:27)
[2022-03-25] MEDS: ceFAZolin 2 GM/D5W 50 ML 2 GM/50 ML BAG IVPB (05:27)
[2022-03-25 05:38] LABS: Basophils Absolute Auto 0.1 K/mm3 (0.0-0.1); Eosinophils Absolute Auto 0.3 K/mm3 (0-0.3); Eosinophils Percent Auto 3.3 % (0-4.4); Hematocrit 31.2 % (42.0-52.0); Hemoglobin 10.2 g/dL (14.0-18.0); Immature Granulocyte Absolute 0.13 K/mm3 (0.00-0.031); Immature Granulocyte Percent A 1.6 % (0-0.5); Lymphocytes Absolute Auto 2.41 K/mm3 (0.9-3.2); Lymphocytes Percent Auto 30.5 % (18.3-44.2); Mean Corpuscular HGB Conc 32.7 g/dl (32-36); Mean Corpuscular Hemoglobin 31.7 pg (26-34); Mean Corpuscular Volume 96.9 fl (80-100); Mean Platelet Volume 9.2 fl (7.4-10.4); Monocytes Absolute Auto 1.1 K/mm3 (0.1-0.6); Monocytes Percent Auto 13.7 % (2.6-8.5); Neutrophils Absolute Auto 3.9 K/mm3 (1.3-6.7); Neutrophils Percent Auto 49.9 % (45.5-73.1); Platelet Count Result 645 k/mm3 (150-375); Red Blood Count 3.22 M/mm3 (4.6-6.20); White Blood Count 7.9 K/mm3 (4.5-10.0)
[2022-03-25 05:39] VITALS: BP 118/76; PULSE 60; RESP 14; TEMP 36.5; O2SAT 94
[2022-03-25 05:54] LABS: Alanine Aminotransferase 13 U/L (6-50); Albumin Level 3.7 g/dL (3.5-5.1); Alkaline Phosphatase 77 U/L (38-126); Anion Gap 14 mmol/L (8-16); Aspartate Amino Transferase 23 U/L (17-59); Bilirubin,Total 0.2 mg/dL (0.2-1.3); Blood Urea Nitrogen 17 mg/dL (9-20); Calcium 8.5 mg/dL (8.4-10.2); Carbon Dioxide 22 mmol/L (22-30); Chloride 98 mmol/L (98-107); Estimated CRCL calculation 81 ml/min; Estimated Glomerular Filt Rate > 60; Glucose 120 mg/dL (65-110); Potassium 4.1 mmol/L (3.4-5.0); Sodium 134 mmol/L (137-145)
--- NOTE | 2022-03-25 08:29 | PCNWS ---
Weekly nutritional screen. Patient is tolerating current diet with adequate intake. No weight loss reported. No nutritional needs at this time.
[2022-03-25 09:01] LABS: Glucose Point of Care 110 mg/dl (65-105)
[2022-03-25] MEDS: ASPIRIN 81 MG ENTERIC TABLET PO (09:12)
[2022-03-25] MEDS: ATORVASTATIN 40 MG TABLET PO (09:12)
[2022-03-25] MEDS: SENNA/DOCUSATE SODIUM TABLET 2 TAB PO (09:12)
[2022-03-25] MEDS: TAMSULOSIN HCL 0.4 MG CAPSULE PO (09:13)
[2022-03-25] MEDS: FENOFIBRATE 160 MG TABLET PO (09:13)
[2022-03-25] MEDS: lisinopriL 5 MG TABLET PO (09:13)
[2022-03-25] MEDS: ENOXAPARIN 40 MG/0.4 ML SYRINGE SUB-Q (09:13)
[2022-03-25] MEDS: LIDOCAINE 5% PATCH 1 PATCH TRANSDERM (09:13)
[2022-03-25] MEDS: FINASTERIDE 5 MG TABLET PO (09:13)
[2022-03-25] MEDS: EMPAGLIFLOZIN 10 MG TABLET PO (09:13)
[2022-03-25] MEDS: OLANZapine 5 MG TABLET 10 MG PO (09:13)
[2022-03-25 09:14] VITALS: PULSE 93
[2022-03-25] MEDS: carvediloL 3.125 MG TABLET PO (09:14)
[2022-03-25 09:15] VITALS: O2SAT 92
--- NOTE | 2022-03-25 09:32 | PM.PNORT ---
Progress Note: A&P Assessment and Plan (1) Diabetic foot ulcer: Qualifiers: Diabetic foot ulcer location: toe Diabetes mellitus type: type 2 Laterality: left Non-pressure ulcer stage: with necrosis of bone Qualified Code(s): E11.621 - Type 2 diabetes mellitus with foot ulcer; L97.524 - Non-pressure chronic ulcer of other 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 Code(s): E11.621 - Type 2 diabetes mellitus with foot ulcer; L97.509 - Non-pressure chronic ulcer of other part of unspecified foot with unspecified severity Status: Acute Assessment and Plan: POD #3: Excisional Debridement left foot including bone.? Percutaneous pin fixation 2nd toe. POD #5: Left foot excision osteomyelitis, excisional debridement diabetic foot ulcer muscle layer Wound VAC removed. Plan to transition to daily dressings at this time with discharge planning. Cultures reviewed. Staph aureus on repeat cultures from wound March 20. Sensitivities final. Sensitive to Levaquin which was previously planned for discharge with IV antibiotics. Appreciate pharm ID and medicine team final decision. Dispo: SNF for wound care and IV antibiotics at discharge. Will arrange for outpatient follow up and suture/pin removal. (2) Cellulitis of foot, left: Code(s): L03.116 - Cellulitis of left lower limb Status: Acute Assessment and Plan: Improved redness/warmth/swelling s/p operative intervention by Dr. Flower. Incision and plantar wound support at this time. (3) Bacteremia: Code(s): R78.81 - Bacteremia Status: Acute Assessment and Plan: IV Levaquin currently. Intraoperative cultures with Staph Aureus, sensitive to Levaquin (4) Peripheral arterial occlusive disease: Code(s): I77.9 - Disorder of arteries and arterioles, unspecified Status: Acute Assessment and Plan: Will benefit from vascular workup and evaluation as an outpatient. (5) Osteomyelitis of toe of left foot: Code(s): M86.9 - Osteomyelitis, unspecified Status: Acute Assessment and Plan: s/p surgical intervention. IV antibiotics. Subjective Subjective Date/Time Seen: 03/25/22 09:32 Post Op day: 3 Principal diagnosis: Left diabetic foot ulcer with osteo Interval history: No new complaints. Still with concern about his foot. No complaints of pain. Review of Systems Review of Systems: All systems reviewed & are unremarkable except as noted in HPI and below (HPI ) Exam Const: General: comfortable and no acute distress Resp: Effort & Inspection: normal respiratory effort GI: Inspection: non-distended GI Palp: Yes Soft to palpation Skin: Wounds: wounds noted (See extremity ) Extrem: Left lower extremity: foot Details: vascular exam Details: dorsalis pedis pulse present (requires doppler ) and abnormal capillary refill (sluggish ) Location: of all toes and motor-sensory exam two point discrimination abnormal and light-touch abnormal Other: Wound VAC removed. Serosanguineous drainage in the chamber. Incision on the dorsal aspect of the forefoot over the 2nd metatarsal, well-approximated. Sutures intact. Mild serosanguineous drainage. No purulence. Wound/ulcer on the plantar aspect approximated with sutures. Pin fixation in the 2nd toe in place. Pin site cleaned. Psych: Mental Status: mental status grossly normal Affect: normal affect Objective Data Vital Signs Vital Signs: Vital Signs - 24 hr 03/24/22 09:40 03/24/22 13:39 03/24/22 17:00 Temperature 36.8 C 36.6 C 36.6 C Pulse Rate 94 90 94 Respiratory Rate 16 16 16 Blood Pressure 120/83 95/60 L 101/71 Pulse Oximetry 97 99 97 Oxygen Delivery 03/24/22 21:15 03/24/22 21:00 03/25/22 01:00 Temperature 36.5 C 36.9 C Pulse Rate 90 88 78 Respiratory Rate 14 16 Blood Pressure 99/61 L 112/60 Pulse Oximetry 97 97 Oxygen Delivery 03/24/22 21:00 03/25/22 05:39 03/25/22 09:14 Temperature 36.5 C Pulse Rate 60
[2022-03-25 10:33] VITALS: BP 105/71; PULSE 86; RESP 18; TEMP 36.4; O2SAT 98
--- NOTE | 2022-03-25 10:47 | PM.DS ---
DS: Admitting Diagnosis Discharge Date March 25, 2022 Admitting Diagnosis foot cellulitis/osteomyelitis DS: Discharge Diagnosis Discharge Diagnosis (1) Acute osteomyelitis of foot: Code(s): M86.179 - Other acute osteomyelitis, unspecified ankle and foot Status: Acute Assessment and Plan: Appreciate orthopedic surgery consultation, infectious disease pharmacist consult as well, PICC line being placed for long-term antibiotics due to osteomyelitis POD #1: Excisional Debridement left foot including bone.? Percutaneous pin fixation 2nd toe. POD #3: Left foot excision osteomyelitis, excisional debridement diabetic foot ulcer muscle layer PICC line placed, continue Levaquin for a total of 6 weeks from negative blood cultures cx noted will need to speak with ortho re procedure to make decision regarding abx (2) Chronic anemia: Code(s): D64.9 - Anemia, unspecified Status: Acute Assessment and Plan: Iron deficiency anemia, continue ferrous sulfate, stable (3) Coronary artery disease: Code(s): I25.10 - Atherosclerotic heart disease of [place] coronary artery without angina pectoris Status: Acute Assessment and Plan: Stable, continue current management (4) Hypertension: Code(s): I10 - Essential (primary) hypertension Status: Acute Assessment and Plan: Stable, continue current management (5) Type 2 diabetes mellitus: Code(s): E11.9 - Type 2 diabetes mellitus without complications Status: Acute Assessment and Plan: Controlled, continue current management (6) Seizure disorder: Code(s): G40.909 - Epilepsy, unspecified, not intractable, without status epilepticus Status: Acute Assessment and Plan: Stable on no medications (7) Severe sepsis: Code(s): A41.9 - Sepsis, unspecified organism; R65.20 - Severe sepsis without septic shock Status: Acute Assessment and Plan: Resolved (8) Chronic obstructive pulmonary disease: Code(s): J44.9 - Chronic obstructive pulmonary disease, unspecified Status: Acute Assessment and Plan: Stable (9) Acute metabolic encephalopathy: Code(s): G93.41 - Metabolic encephalopathy Status: Acute Assessment and Plan: resolved (10) Diabetic foot ulcer: Qualifiers: Diabetic foot ulcer location: toe Diabetes mellitus type: type 2 Laterality: left Non-pressure ulcer stage: with necrosis of bone Qualified Code(s): E11.621 - Type 2 diabetes mellitus with foot ulcer; L97.524 - Non-pressure chronic ulcer of other 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 Code(s): E11.621 - Type 2 diabetes mellitus with foot ulcer; L97.509 - Non-pressure chronic ulcer of other part of unspecified foot with unspecified severity Status: Acute Assessment and Plan: as above (11) BPH (benign prostatic hyperplasia): Code(s): N40.0 - Benign prostatic hyperplasia without lower urinary tract symptoms Status: Acute Assessment and Plan: Osorio removed, voiding okay (12) Bacteremia: Code(s): R78.81 - Bacteremia Status: Acute Assessment and Plan: Continue IV antibiotics, repeat blood cx from 03/14 NGTD Intraoperative cultures pending Wound culture from March 20 gram stain shows no organisms seen (13) Hyponatremia: Code(s): E87.1 - Hypo-osmolality and hyponatremia Status: Acute Assessment and Plan: Sodium down to 133 from 136 today, suspect this is due to fluid infused during the OR, will hold IV fluids and reassess later today Plan DVT prophylaxis with SCDs GI prophylaxis not indicated Code status full code DS: Summary Hospital Course Hospital Course: patient was admitted for cellulitis and osteomyelitis of the left foot. He did have surgical debridement. He will need 6 weeks of antibiotics on discharge. He will be continued on Levaquin per cultures. Stop date for Le
[2022-03-25 12:15] LABS: EDCOVIDSCREEN Negative (Negative)
[2022-03-25 12:20] LABS: Glucose Point of Care 125 mg/dl (65-105)
[2022-03-25] MEDS: HYDROcodone/acetaminophen (*CRX) 5-325 MG TABLET 1 TAB PO (12:42)
== END 2022-03-25 14:20 | DRG 710 ==
LOC: ANHED 23:24 → ANH3MED 03-11 01:09 → ANH2MED 03-11 01:45
PROVIDERS: Emergency Medicine; Nurse Practitioner; Orthopaedic Surgery; Physician Assistant; Student in an Organized Health Care Education/Training Program; Urology; Admitting Provider Internal Medicine; Emergency Provider General Practice; PCP Family Medicine; Visit Provider Chiropractor
PROC: 0T7D8ZZ Dilation of Urethra, Via Natural or Artificial Opening Endoscopic (ICD-10-PCS; CPT 52281; principal; 2022-03-11 14:30)
PROC: 0KBW0ZZ Excision of Left Foot Muscle, Open Approach (ICD-10-PCS; principal; 2022-03-20 08:00)
PROC: 0QBP0ZZ Excision of Left Metatarsal, Open Approach (ICD-10-PCS; CPT 28805; principal; 2022-03-22 07:30)
DX: A41.9 Sepsis, unspecified organism (principal); G93.41 Metabolic encephalopathy; E11.42 Type 2 diabetes mellitus with diabetic polyneuropathy; M00.072 Staphylococcal arthritis, left ankle and foot; M86.172 Other acute osteomyelitis, left ankle and foot; E11.621 Type 2 diabetes mellitus with foot ulcer; L03.116 Cellulitis of left lower limb; E87.1 Hypo-osmolality and hyponatremia; R65.20 Severe sepsis without septic shock; E11.69 Type 2 diabetes mellitus with other specified complication; E11.628 Type 2 diabetes mellitus with other skin complications; B95.61 Methicillin susceptible Staphylococcus aureus infection as the cause of diseases classified elsewhere; L97.529 Non-pressure chronic ulcer of other part of left foot with unspecified severity; J44.9 Chronic obstructive pulmonary disease, unspecified; Z20.822 Contact with and (suspected) exposure to COVID-19; K21.9 Gastro-esophageal reflux disease without esophagitis; G40.909 Epilepsy, unspecified, not intractable, without status epilepticus; I25.10 Atherosclerotic heart disease of native coronary artery without angina pectoris; N40.1 Benign prostatic hyperplasia with lower urinary tract symptoms; B96.5 Pseudomonas (aeruginosa) (mallei) (pseudomallei) as the cause of diseases classified elsewhere; R33.8 Other retention of urine; I10 Essential (primary) hypertension; E78.5 Hyperlipidemia, unspecified; I73.9 Peripheral vascular disease, unspecified; N35.819 Other urethral stricture, male, unspecified site; Z79.82 Long term (current) use of aspirin; Z86.73 Personal history of transient ischemic attack (TIA), and cerebral infarction without residual deficits; Z95.5 Presence of coronary angioplasty implant and graft; Z87.442 Personal history of urinary calculi; Z95.1 Presence of aortocoronary bypass graft; Z87.891 Personal history of nicotine dependence; E66.9 Obesity, unspecified; Z68.38 Body mass index [BMI] 38.0-38.9, adult; D50.9 Iron deficiency anemia, unspecified
CPT/HCPCS: 36415; 36569; 51701; 70450; 71045; 73620; 73630; 73720; 80048; 80053; 80156; 80164; 80202; 81001; 82565; 82570; 82607; 82728; 82746; 82948; 83036; 83540; 83550; 83605; 83735; 84300; 84443; 84466; 85025; 85046; 85610; 85730; 86140; 87040; 87070; 87077; 87147; 87181; 87186; 87205; 87426; 93005; 94640; 96365; 97110; 97116; 97162; 97165; 97530; 97535; 99199; 99285; A9270; A9577; C1713; C1726; C1751; C1769; C9803; J0131; J0690; J0692; J1100; J1580; J1650; J1815; J1956; J2250; J2405; J2704; J2997; J3010; J3370; J3480; J7030; J7120; U0003; U0005

== ENCOUNTER 2022-04-24 19:20 | Emergency (ER) | payer BC, SELFPAY ==
[2022-04-24 19:26] VITALS: BP 111/70; PULSE 68; RESP 19; TEMP 37.1; O2SAT 97
--- NOTE | 2022-04-24 19:59 | PC.NURSE ---
this nurse has tried to call facility of the pt many, many times. no answer there. have attempted to speak with arts administrator, again no answer. tried to speak with director- no answer supercharger repair supervisor to call [facility], to do drive by and inform facility of patient return, when DC order is in
--- NOTE | 2022-04-24 20:09 | ED.RECABL ---
HPI - Recheck/Abnormal Lab/Rx General Chief Complaint: Recheck/Abnormal Lab/Rx <Brielle Worthy PA-C - Last Filed: 04/24/22 20:23> Stated Complaint: NON WORKING PICC LINE <Brielle Worthy PA-C - Last Filed: 04/24/22 20:23> Time Seen by Provider: 04/24/22 20:09 <Brielle Worthy PA-C - Last Filed: 04/24/22 20:23> Source: patient <CHASITY King Last Filed: 04/24/22 20:23> Mode of arrival: EMS <CHASITY King Last Filed: 04/24/22 20:23> Limitations: no limitations <CHASITY King Last Filed: 04/24/22 20:23> History of Present Illness HPI narrative: This is a 61-year-old male that presents emergency department for PICC line issues. Reports that he sentiment because they were having trouble flushing his PICC line. He is receiving IV antibiotics for an infection in his foot. Currently resides at [facility]. He has no complaints currently. Denies fevers, erythema, edema, or abnormal drainage from the area. <Brielle Worthy PA-C - Last Filed: 04/24/22 20:23> Related Data Home Medications: Home Medications Medication Instructions Recorded Confirmed albuterol sulfate 90 mcg/actuation 90 mcg inhalation QID PRN 09/05/21 04/20/22 aerosol inhaler (ProAir HFA) Shortness Of Breath aspirin 81 mg tablet,delayed 81 mg PO DAILY 09/05/21 04/20/22 release (Adult Low Dose Aspirin) atorvastatin 40 mg tablet (Lipitor) 40 mg PO DAILY 09/05/21 04/20/22 carvedilol 3.125 mg tablet (Coreg) 3.125 mg PO Q12H 09/05/21 04/20/22 empagliflozin 10 mg tablet 10 mg PO DAILY 09/05/21 04/20/22 (Jardiance) fenofibrate 160 mg tablet 160 mg PO DAILY 09/05/21 04/20/22 lisinopril 5 mg tablet (Zestril) 5 mg PO DAILY 09/05/21 04/20/22 insulin glargine 100 unit/mL (3 45 unit subcut HS 03/11/22 04/20/22 mL) subcutaneous pen (Lantus Solostar U-100 Insulin) olanzapine 20 mg tablet 10 mg PO Q12H 03/11/22 04/20/22 <CHASITY King Last Filed: 04/24/22 20:23> Allergies/Adverse Reactions: Allergies Allergy/AdvReac Type Severity Reaction Status Date / Time metoclopramide AdvReac Mild Vomiting Verified 04/20/22 09:10 <CHASITY King Last Filed: 04/24/22 20:23> Review of Systems Review of Systems: CONSTITUTIONAL: Denies fever SKIN: Denies rash <CHASITY King Last Filed: 04/24/22 20:23> All systems reviewed & are unremarkable except as noted in HPI and below <CHASITY King Last Filed: 04/24/22 20:23> [facility] Past Medical History Medical History: Medical History Cerebrovascular accident (06/2021) It sounds as though he had an ischemic stroke (symptoms include vertigo and visual changes) with hemorrhagic conversion. Chronic anemia Chronic obstructive pulmonary disease Coronary artery disease Status post bifurcation stents to the LAD and diagonal in 2006, stent to the LAD for in-stent restenoses in 2009, and CABG in April 2021 at [facility]. Diabetic foot ulcer Gastroesophageal reflux disease Hypertension Kidney stones Peripheral arterial occlusive disease Seizure disorder Type 2 diabetes mellitus <CHASITY King Last Filed: 04/24/22 20:23> Surgical History Surgical History: Surgical History History of coronary artery bypass graft (04/2021) Done at [facility]. History of inguinal hernia repair History of myringoplasty History of percutaneous coronary intervention Bifurcation stents to LAD and diagonal in 2006. Stent to the LAD in 2009. <CHASITY King Last Filed: 04/24/22 20:23> Family History Family History: Family History Mother Family history of diabetes mellitus in first degree relative Other Diabetes mellitus Hypertension <Brielle Worthy PA-C - Last Filed: 04/24/22 20:2
--- NOTE | 2022-04-24 20:09 | PC.NURSE ---
[facility] attempted to be notified that pt would be returning to facility. Multiple phone calls made over last 40 minutes with no answer at facility. This RN called [place] [employer] non-emergency phone line to request that officer perform wellness check on facility and inform them that pt would be returning.
--- NOTE | 2022-04-24 20:16 | PC.NURSE ---
[facility] at [facility] called the ER, spoke with this RN. I informed her that pt would be returning to facility.
--- NOTE | 2022-04-24 20:44 | PC.NURSE ---
[facility] ETA 1045 to 11pm for transport back to facility.
--- NOTE | 2022-04-24 20:46 | PC.NURSE ---
called [facility] to request transport. ETA [id number]
--- NOTE | 2022-04-24 21:30 | PC.NURSE ---
[facility] here
== END 2022-04-24 21:30 ==
LOC: ANHED 20:29
PROVIDERS: Emergency Provider Emergency Medicine; PCP Family Medicine
DX: Z45.2 Encounter for adjustment and management of vascular access device (principal); J44.9 Chronic obstructive pulmonary disease, unspecified; I25.10 Atherosclerotic heart disease of native coronary artery without angina pectoris; I10 Essential (primary) hypertension; E11.9 Type 2 diabetes mellitus without complications; G40.909 Epilepsy, unspecified, not intractable, without status epilepticus; D64.9 Anemia, unspecified; I77.9 Disorder of arteries and arterioles, unspecified; K21.9 Gastro-esophageal reflux disease without esophagitis; Z87.442 Personal history of urinary calculi; Z86.73 Personal history of transient ischemic attack (TIA), and cerebral infarction without residual deficits; Z95.1 Presence of aortocoronary bypass graft; Z95.5 Presence of coronary angioplasty implant and graft; Z87.891 Personal history of nicotine dependence; Z79.4 Long term (current) use of insulin; Z79.82 Long term (current) use of aspirin
CPT/HCPCS: 99282

== ENCOUNTER 2023-01-22 12:02 | Inpatient (IN) | payer BC, SELFPAY ==
[2023-01-22] VITALS (14 sets, daily range): BP systolic 109–124; BP diastolic 73–79; PULSE 66–77; RESP 12–20; TEMP 36.3–36.6; O2SAT 95–100
--- NOTE | ~2023-01-22 | XR_ITS ---
EXAMINATION: XR foot LT min 3V DATE: 01/22/2023 12:26 INDICATION: Diabetic presenting with left foot wounds TECHNIQUE: Dorsoplantar, two oblique and lateral views of the left foot were obtained. COMPARISON: None. FINDINGS: Smooth osteotomy margins at the neck of the left first metatarsal and base of the third proximal phal anx. Additional smooth corticated margins at the site of prior osteolysis at the head of the fourth m iddle phalanx and base of the fourth distal phalanx. There are also cortical margins and increased jacques ne density of the head of the third distal phalanx. Each of these findings likely related to chronic osteomyelitis. There is marked osteolysis and fragmentation of all but the base of the first distal p halanx. Consistent with advanced osteomyelitis. Secondary minimally displaced pathologic fracture at the lateral margin of the remaining base of the distal phalanx. Unchanged moderate to severe osteoart hritis at the first metatarsophalangeal joint and mild osteoarthritis at the ankle and a few tarsal m etatarsal joints.. No fractures. Small plantar calcaneal spur. Soft tissue swelling about the distal lower leg, ankle and foot. No radiopaque foreign bodies. IMPRESSION: 1. Advanced osteomyelitis with osteolysis involving the majority the mid to distal left first distal phalanx with secondary likely pathologic the intra-articular fracture at the lateral side of the gosia ining base of the first distal phalanx. 2. Changes consistent with chronic osteomyelitis at the third and fourth toes and with osteotomies ap ical size of a now widened second metatarsophalangeal joint. Reviewed, dictated and finalized at location A. IMPRESSION: 1. Advanced osteomyelitis with osteolysis involving the majority the mid to dis carmen left first distal phalanx with secondary likely pathologic the intra-articu lar fracture at the lateral side of the remaining base of the first distal phal anx. 2. Changes consistent with chronic osteomyelitis at the third and fourth toes a nd with osteotomies apical size of a now widened second metatarsophalangeal tono nt.
--- NOTE | ~2023-01-22 | US_ITS ---
EXAMINATION: US art doppler w press LE BI DATE: 01/23/2023 09:24 INDICATION: Osteomyelitis at the left foot TECHNIQUE: Segmental pressures and plethysmographic and Doppler waveforms of the brachial and lower e xtremity arteries were obtained. COMPARISON: None. FINDINGS: Right and left brachial artery pressures of 95 mm Hg and 107 mm Hg, respectively, are concordant (nor mal difference <= 30 mmHg). The right and left high-thigh pressure indices are 1.32 and 1.27, respect ively (normal > 1.2). The right ankle-brachial index (PRETTY) is 1.09 (normal >= 0.9-1). The right great toe-brachial index (T BI) is 0.35 (normal >= 0.6-0.8). The right lower extremity segmental pressure gradients are normal (n ormal gradients <= 20-30 mmHg between adjacent levels on the same leg or the same levels on the two l egs). Arterial waveforms are biphasic with brisk systolic upstrokes throughout the arteries of the ri ght lower limb. The left PRETTY is 0.80. The left TBI is unable to be obtained due to wound at the great toe. The left l ower extremity segmental pressure gradients are increased between the left [id number] popliteal a rtery and the arteries at the left ankle. Arterial waveforms are biphasic with brisk systolic upstrok es at the left common femoral, superficial femoral and dorsalis pedis arteries. Biphasic waveform wit h mildly delayed upstrokes and broadened systolic peaks at the left posterior tibial artery. The wave form recorded for the left popliteal artery does not demonstrate definitively repetitive arterial wav eform and remains indeterminate. IMPRESSION: 1. Mild arterial occlusive disease to the right lower limb with normal right PRETTY but decreased right TBI. 2. Arterial occlusive disease to the left lower limb with mildly decreased left PRETTY and significant p ressure gradient between the left [id number]-pde-ljsu popliteal artery and the arteries at the left ankle. Reviewed, dictated and finalized at location A. IMPRESSION: 1. Mild arterial occlusive disease to the right lower limb with normal right AB I but decreased right TBI. 2. Arterial occlusive disease to the left lower limb with mildly decreased left PRETTY and significant pressure gradient between the left cfzzh-ewx-zmzr poplitea l artery and the arteries at the left ankle.
--- NOTE | ~2023-01-22 | XR_ITS ---
EXAMINATION: XR urethrocystogram DATE: 01/26/2023 13:50 CDT INDICATION: Urethrogram. TECHNIQUE: 2 fluoroscopic images of the urethra were obtained during retrograde urethrography for ure thral stricture performed by the surgeon. I was not present in the operating room. Fluoroscopy exposu re time was 9 seconds. Air Kerma 1.59 mGy. DAP [id number] mGym2. COMPARISON: None FINDINGS: Contrast fills a normal penile, distal bulbous, membranous, and prostatic urethra. Focal narrowing at the proximal bulbous urethra/bulbomembranous junction likely representing a stricture. IMPRESSION: Fluoroscopic documentation of retrograde urethrography. Please refer to the operative note for comple te procedural details . Reviewed, dictated and finalized at location K. IMPRESSION: Fluoroscopic documentation of retrograde urethrography. Please refer to the ope rative note for complete procedural details .
--- NOTE | 2023-01-22 12:21 | ED.EXTPRO ---
HPI - Extremity Problem General Chief complaint: Extremity Problem,Nontraumatic Stated complaint: L toe injury Time Seen by Provider: 01/22/23 12:20 Source: patient and family Mode of arrival: ambulatory Limitations: no limitations History of Present Illness HPI Narrative: 62 years old white male came to the emergency room with his son was telling me that patient been having swelling left lower leg over the last few days, last night had complete left big toe nail avulsion spontaneously without trauma. The son is telling me that he had a hole at the plantar side of the left big toe for unknown duration. Also history me that the patient takes his medication occasionally when he remembers. History of hypertension, hyperlipidemia, diabetes, COPD, coronary artery disease, diabetic foot ulcer and metabolic encephalopathy. Patient denies any fever, chills, nausea, vomiting, any pain, patient is awake, alert oriented x4. Related Data Home Medications Medication Instructions Recorded Confirmed albuterol sulfate 90 mcg/actuation 90 mcg inhalation QID PRN 09/05/21 05/25/22 aerosol inhaler (ProAir HFA) Shortness Of Breath aspirin 81 mg tablet,delayed 81 mg PO DAILY 09/05/21 05/25/22 release (Adult Low Dose Aspirin) atorvastatin 40 mg tablet (Lipitor) 40 mg PO DAILY 09/05/21 05/25/22 carvedilol 3.125 mg tablet (Coreg) 3.125 mg PO Q12H 09/05/21 05/25/22 empagliflozin 10 mg tablet 10 mg PO DAILY 09/05/21 05/25/22 (Jardiance) fenofibrate 160 mg tablet 160 mg PO DAILY 09/05/21 05/25/22 lisinopril 5 mg tablet (Zestril) 5 mg PO DAILY 09/05/21 05/25/22 insulin glargine 100 unit/mL (3 45 unit subcut HS 03/11/22 05/25/22 mL) subcutaneous pen (Lantus Solostar U-100 Insulin) olanzapine 20 mg tablet 10 mg PO Q12H 03/11/22 05/25/22 Allergies Allergy/AdvReac Type Severity Reaction Status Date / Time metoclopramide AdvReac Mild Vomiting Verified 05/25/22 13:14 Review of Systems Review of Systems: All systems reviewed & are unremarkable except as noted in HPI and below PMFSH Past Medical History Medical History Cerebrovascular accident (06/2021) It sounds as though he had an ischemic stroke (symptoms include vertigo and visual changes) with hemorrhagic conversion. Chronic anemia Chronic obstructive pulmonary disease Coronary artery disease Status post bifurcation stents to the LAD and diagonal in 2006, stent to the LAD for in-stent restenoses in 2009, and CABG in April [address] [facility]. Diabetic foot ulcer Gastroesophageal reflux disease Hypertension Kidney stones Peripheral arterial occlusive disease Seizure disorder Type 2 diabetes mellitus Surgical History Surgical History History of coronary artery bypass graft (04/2021) Done at [facility]. History of inguinal hernia repair History of myringoplasty History of percutaneous coronary intervention Bifurcation stents to LAD and diagonal in 2006. Stent to the LAD in 2009. Family History Family History Mother Family history of diabetes mellitus in first degree relative Other Diabetes mellitus Hypertension Social History Social History Social History: The patient lives with his and 2 teenage sons in [place]. 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 He smoked about a pack a day for nearly 45 years and he quit at the time of his bypass in April 2021. He was a heavier drinker in his younger years. No illicit substance use. Surrogate medical decision maker: Shahrzad Qiu, . Code status: Full code. Smoking status: Former smoker Spiritual care concerns: No Exam Narrative: General appearance: Well-developed, well-nourished, looks ill Skin: Normal color Head: Normocephalic, nontraumatic Eyes: Jett
[2023-01-22] MEDS: SODIUM CHLORIDE 0.9% IV 1,000 ML 999 ML IV CONT (12:44)
[2023-01-22 12:58] LABS: Basophils Absolute Auto 0.1 K/mm3 (0.0-0.1); Basophils Percent Auto 0.6 % (0.2-1.2); Eosinophils Absolute Auto 0.5 K/mm3 (0-0.3); Eosinophils Percent Auto 3.4 % (0-4.4); Hemoglobin 12.5 g/dL (14.0-18.0); Immature Granulocyte Absolute 0.06 K/mm3 (0.00-0.031); Immature Granulocyte Percent A 0.4 % (0-0.5); Lymphocytes Absolute Auto 1.35 K/mm3 (0.9-3.2); Lymphocytes Percent Auto 9.9 % (18.3-44.2); Mean Corpuscular HGB Conc 32.1 g/dl (32-36); Mean Corpuscular Hemoglobin 30.6 pg (26-34); Mean Corpuscular Volume 95.6 fl (80-100); Mean Platelet Volume 10.2 fl (7.4-10.4); Monocytes Absolute Auto 1.2 K/mm3 (0.1-0.6); Monocytes Percent Auto 9.1 % (2.6-8.5); Neutrophils Absolute Auto 10.5 K/mm3 (1.3-6.7); Neutrophils Percent Auto 76.6 % (45.5-73.1); Platelet Count Result 426 k/mm3 (150-375); Red Blood Count 4.08 M/mm3 (4.6-6.20); Red Cell Distribution Width 13.5 % (11.5-14.5); White Blood Count 13.7 K/mm3 (4.5-10.0)
[2023-01-22 13:01] LABS: Alveolar/Arterial O2 Gradient 33.6 mmHg; Base Excess ABG -4.4 mEq/l (+/-2.0); Fractional Inspired Oxygen 21 %; HCO3 ABG 19.3 mEq/l (22.0-26.0); Oxygen Content ABG 16.7 %vol (16.0-22.0); Oxygen Saturation ABG 95.9 % (95.0-100.0); Oxyhemoglobin 94.5 % THb (90.0-100.0); PCO2 ABG 31.3 mmHg (35.0-45.0); PO2 ABG 78.7 mmHg (80.0-100.0); PO2 FiO2 Ratio Arterial Blood 3.75 %; Total Hemoglobin 12.5 g/dL (12.0-18.0); pH ABG 7.407 (7.350-7.450)
[2023-01-22 13:02] LABS: Device ROOM AIR; Modified Allen's Test Pass; Site Drawn RIGHT RADIAL
[2023-01-22 13:05] LABS: Lactic Acid Reflex 0.7 mmol/L (0.7-2.0)
[2023-01-22 13:08] LABS: INR 1.1; Prothrombin Time 14.9 Seconds (11.1-14.7)
[2023-01-22 13:09] LABS: Alanine Aminotransferase 13 U/L (6-50); Albumin Level 4.4 g/dL (3.5-5.1); Alkaline Phosphatase 67 U/L (38-126); Anion Gap 7 mmol/L (8-16); Aspartate Amino Transferase 19 U/L (17-59); Bilirubin,Total 0.4 mg/dL (0.2-1.3); Blood Urea Nitrogen 12 mg/dL (9-20); CRP 1.7 mg/dL (<1.0); Carbon Dioxide 23 mmol/L (22-30); Chloride 103 mmol/L (98-107); Estimated CRCL calculation 75 ml/min; Estimated Glomerular Filt Rate > 60; Glucose 114 mg/dL (65-110); Potassium 4.5 mmol/L (3.4-5.0); Sodium 133 mmol/L (137-145)
[2023-01-22 13:10] LABS: Partial Thromboplastin Time 52.3 SECONDS (22.3-36.8)
[2023-01-22] MEDS: PIPERACILLN/TAZ 3.375GM/NS50ML 3.375 GM/50 ML BAG IVPB ×2 (13:48→18:40)
--- NOTE | 2023-01-22 16:12 | PM.IMHP ---
H&P: HPI History of Present Illness Date/Time: 01/22/23 16:12 Chief Complaint: Infection to left hip Narrative: This is a 62-year-old male patient came to the emergency room complaining of swelling to his left lower leg or last few days. The patient has had the entire left big toenail evolution spontaneously without trauma. He has a history of hypertension, hyperlipidemia diabetes COPD coronary artery disease and diabetic foot ulcer. The patient denies any fevers or chills. His white count is 13.7. H&H is 12.5 and 39.0. Sodium 133 today with a previous level of 134 in the past. C reactive protein 1.7. Foot x-ray read as. Advanced osteomyelitis with osteolysis involving the majority the mid to distal left first distal phalanx with secondary likely pathologic the intra-articular fracture at the lateral side of the remaining base of the first distal phalanx. 2. Changes consistent with chronic osteomyelitis at the third and fourth toes and with osteotomies apical size of a now widened second metatarsophalangeal joint. The patient had previously been treated for osteomyelitis and had a PICC line in the past. However the patient stated that he does not want a PICC line again. He has been seeing Dr. Flower. The patient had difficulty answering questions for us. Dr. Barron has been consulted for today's left great toe osteomyelitis. The patient was started on Zosyn and vanco. Blood cultures are pending. The patient is being admitted to inpatient status on the date of service of 01/22/2023. Review of Systems Review of Systems: All systems reviewed & are unremarkable except as noted in HPI and below Constitutional: Constitutional: Reports as per HPI and Reports no additional constitutional complaints Eyes: Eyes: Reports as per HPI and Reports no additional eye complaints ENT: Reports system reviewed and no additional complaints, except as documented and Reports Normal hearing present Cardiovascular: Cardiovascular: Reports no additional cardiovascular complaints Respiratory: Respiratory: Reports no additional respiratory complaints and Reports no additional respiratory complaints Gastrointestinal: Gastrointestinal: Reports as per HPI and Reports no additional gastrointestinal complaints Musculoskeletal: Musculoskeletal: Reports no additional musculoskeletal complaints Integumentary/Breasts: Skin/Breast: Reports system reviewed and no additional complaints, except as docu and Reports as per HPI Neurologic: Reports system reviewed and no additional complaints, except as documented, Reports as per HPI and Reports Normal hearing present Psychiatric: Psychiatric: Reports no additional psychiatric complaints and Reports as per HPI Endocrine: Endocrine: Reports no additional endocrine complaints Hematologic/Lymphatic: Hematologic/Lymphatic: Reports no additional hematologic/lymphatic complaints Allergic/Immunologic: Allergic/Immunologic: Reports no additional allergic/immunologic complaints [facility] Past Medical History Medical History (Updated 01/23/23 @ 00:09 by Mahsa Maher NP) Cerebrovascular accident (06/2021) It sounds as though he had an ischemic stroke (symptoms include vertigo and visual changes) with hemorrhagic conversion. Chronic anemia Chronic obstructive pulmonary disease Coronary artery disease Status post bifurcation stents to the LAD and diagonal in 2006, stent to the LAD for in-stent restenoses in 2009, and CABG in April 2021 at [facility]. Diabetic foot ulcer Gastroesophageal reflux disease Hypertension Kidney stones ILANA on CPAP Peripheral arterial occlusive disease Seizure disorder Type 2 diabetes mellitus Surgical History Surgical History (Updated 01/23/23 @ 00:09 by Mahsa Maher NP) History of coronary artery bypass graft (04/2021) Done at [facility]. History of inguinal hernia repair times 2 History of myringoplasty History of percutaneous coronary intervention Bifurc
--- NOTE | 2023-01-22 16:29 | ADMGEN ---
This patient, Baldev Qiu, was admitted to Medical Room 240-01. Patient/family oriented to hospital policies and general routines including ID bracelet, bed and alarms, visiting hours, pain management, procedures, bathroom and other care routines, personal items, smoking policy, room service/diet, and visiting hours. Information on how to activate the Rapid Response Team has been discussed. Patient/Family are encouraged to report perceived risks to care and to ask questions if they do not understand what they are told or what they should do.
[2023-01-23] VITALS (8 sets, daily range): BP systolic 105–116; BP diastolic 69–74; PULSE 74–82; RESP 16–17; TEMP 36.4; O2SAT 93–100
[2023-01-23] MEDS: PIPERACILLN/TAZ 3.375GM/NS50ML 3.375 GM/50 ML BAG IVPB ×4 (00:34→17:46)
--- NOTE | 2023-01-23 00:37 | PCRCNOTE ---
Pt states he does not have CPAP at home and has never had a sleep study, does not want one
[2023-01-23] MEDS: carvediloL 3.125 MG TABLET PO ×3 (00:38→21:07)
[2023-01-23] MEDS: lisinopriL 5 MG TABLET PO ×2 (00:40→09:29)
[2023-01-23] MEDS: OLANZapine 5 MG TABLET 10 MG PO ×3 (00:40→21:07)
[2023-01-23] MEDS: carBAMazepine 200 MG TABLET PO ×4 (00:41→21:07)
[2023-01-23] MEDS: INSULIN GLARGINE (*BKC) 100 UNITS/ML 45 UNITS SUB-Q ×2 (00:44→21:08)
[2023-01-23 00:52] LABS: Glucose Point of Care 126 mg/dl (65-105)
[2023-01-23 08:06] LABS: Glucose Point of Care 108 mg/dl (65-105)
[2023-01-23] MEDS: ATORVASTATIN 40 MG TABLET PO (09:29)
[2023-01-23] MEDS: FENOFIBRATE 160 MG TABLET PO (09:29)
[2023-01-23] MEDS: ASPIRIN 81 MG ENTERIC TABLET PO (09:29)
[2023-01-23] MEDS: EMPAGLIFLOZIN 10 MG TABLET PO (09:29)
[2023-01-23 11:34] LABS: Basophils Absolute Auto 0.1 K/mm3 (0.0-0.1); Basophils Percent Auto 0.5 % (0.2-1.2); Eosinophils Absolute Auto 0.4 K/mm3 (0-0.3); Eosinophils Percent Auto 3.2 % (0-4.4); Hematocrit 38.8 % (42.0-52.0); Hemoglobin 12.3 g/dL (14.0-18.0); Immature Granulocyte Absolute 0.06 K/mm3 (0.00-0.031); Immature Granulocyte Percent A 0.5 % (0-0.5); Lactic Acid Reflex 1.1 mmol/L (0.7-2.0); Lymphocytes Absolute Auto 1.25 K/mm3 (0.9-3.2); Lymphocytes Percent Auto 10.1 % (18.3-44.2); Mean Corpuscular HGB Conc 31.7 g/dl (32-36); Mean Corpuscular Hemoglobin 30.1 pg (26-34); Mean Corpuscular Volume 95.1 fl (80-100); Mean Platelet Volume 10.3 fl (7.4-10.4); Monocytes Absolute Auto 1.2 K/mm3 (0.1-0.6); Monocytes Percent Auto 9.3 % (2.6-8.5); Neutrophils Absolute Auto 9.4 K/mm3 (1.3-6.7); Neutrophils Percent Auto 76.4 % (45.5-73.1); Platelet Count Result 421 k/mm3 (150-375); Red Blood Count 4.08 M/mm3 (4.6-6.20); Red Cell Distribution Width 13.3 % (11.5-14.5); White Blood Count 12.3 K/mm3 (4.5-10.0)
[2023-01-23 11:38] LABS: Alanine Aminotransferase 13 U/L (6-50); Albumin Level 4.1 g/dL (3.5-5.1); Alkaline Phosphatase 58 U/L (38-126); Anion Gap 7 mmol/L (8-16); Aspartate Amino Transferase 19 U/L (17-59); Bilirubin,Total 0.4 mg/dL (0.2-1.3); Blood Urea Nitrogen 11 mg/dL (9-20); CRP 1.9 mg/dL (<1.0); Calcium 8.3 mg/dL (8.4-10.2); Carbon Dioxide 21 mmol/L (22-30); Chloride 102 mmol/L (98-107); Estimated CRCL calculation 83 ml/min; Estimated Glomerular Filt Rate > 60; Glucose 158 mg/dL (65-110); Potassium 4.2 mmol/L (3.4-5.0); Sodium 130 mmol/L (137-145)
[2023-01-23 11:55] LABS: Hemoglobin A1C 7.4 % (<5.7)
[2023-01-23 12:05] LABS: Glucose Point of Care 148 mg/dl (65-105)
--- NOTE | 2023-01-23 12:35 | PM.IMPN ---
Progress Note: A&P Assessment and Plan (1) Osteomyelitis of great toe of left foot: Code(s): M86.9 - Osteomyelitis, unspecified Status: Acute Assessment and Plan: The patient was started on Zosyn and vancomycin. Blood cultures are pending. Dr. Flower has been consulted. Check arterial Dopplers. His white count is 13.7. History of having osteomyelitis in the past and had a PICC line in the past. The patient stated that he would not have another PICC line. Foot X-Ray 01/22/23 12:44 IMPRESSION: 1. Advanced osteomyelitis with osteolysis involving the majority the mid to distal left first distal phalanx with secondary likely pathologic the intra-articular fracture at the lateral side of the remaining base of the first distal phalanx. 2. Changes consistent with chronic osteomyelitis at the third and fourth toes and with osteotomies apical size of a now widened second metatarsophalangeal joint. Continue with analgesics. Monitor CBC lactic. (2) ILANA on CPAP: Code(s): G47.33 - Obstructive sleep apnea (adult) (pediatric) Status: Acute Assessment and Plan: Continue with home settings. (3) Peripheral arterial occlusive disease: Code(s): I77.9 - Disorder of arteries and arterioles, unspecified Status: Acute Assessment and Plan: Arterial Dopplers were ordered. (4) BPH (benign prostatic hyperplasia): Code(s): N40.0 - Benign prostatic hyperplasia without lower urinary tract symptoms Status: Acute Assessment and Plan: Continue with home medications. (5) Coronary artery disease: Code(s): I25.10 - Atherosclerotic heart disease of [place] coronary artery without angina pectoris Status: Acute Assessment and Plan: Continue with aspirin Coreg and fenofibrate (6) Hypertension: Code(s): I10 - Essential (primary) hypertension Status: Acute Assessment and Plan: Continue with Coreg (7) Type 2 diabetes mellitus: Code(s): E11.9 - Type 2 diabetes mellitus without complications Status: Acute Assessment and Plan: Accu-Cheks AC and HS check A1c. Sliding scale insulin with hypoglycemic protocol. Continue with glargine. Continue Jardiance (8) Chronic obstructive pulmonary disease: Code(s): J44.9 - Chronic obstructive pulmonary disease, unspecified Status: Acute Assessment and Plan: P.r.n. albuterol Subjective Date/time seen: 01/23/23 12:35 Interval history: No new complaints Exam Const: General: cooperative, healthy appearing, comfortable, no acute distress, well developed, alert, awake, Physically active, average body habitus and well nourished Nutritional Appearance: average body habitus and well nourished Orientation/consciousness: oriented to person, oriented to place, oriented to time and patient oriented x3 Limitations: no limitations Other: The patient is a poor historian. HENMT: Head: normal to inspection, No palpable skull fracture present, normocephalic and atraumatic Ears: hearing grossly normal bilaterally and external ears normal Face/Nose/Sinus: Normal external nose present and Normal nares present Eyes: General: appearance normal, both eyes and all related structures Alignment and Position: alignment normal Periorbital: periorbital findings normal Eyelids: eyelids normal Sclera: sclerae normal Pupils: Equal, round and reactive pupils present EOM: EOMs intact bilaterally Neck: Neck: normal visual inspection, full ROM, no lymphadenopathy, trachea midline and supple Chest: Chest palpation & inspection: normal inspection of the chest Resp: Effort & Inspection: normal respiratory effort Auscultation: clear to auscultation bilaterally Cardio: Palpation: normal PMI Rate: tachycardic Rhythm: regular rhythm Heart sounds: S1 normal heart sound present and S2 normal heart sound present Peripheral pulses: Peripheral pulses 2+ throughout GI: Inspection: normal to inspecti
--- NOTE | 2023-01-23 13:57 | PM.CNOR ---
Assessment and Plan Assessment and plan (1) Osteomyelitis of great toe of left foot: Code(s): M86.9 - Osteomyelitis, unspecified Status: Acute Assessment and Plan: DEEPAK IS HERE LEFT GREAT TOE ULCER AND PROBABLE OSTEOMYELITIS OF THE DISTAL PHALANX PER XRAY EVALUATION. HE HAS UNCONTROLLED DM. HE WILL REQUIRE IV ABX AND DEBRIDEMENT OF THE FIRST TOE AND MOST LIKELY AMPUTATION OF THE GREAT TOE AND POSSIBLY PART OF THE FIRST RAY. HE WILL REEVALUATED IN THE TOMORROW FOR PREOP PLANNING. AGREE WITH CURRENT TREATMENT PLAN. WILL FOLLOW. HISTORY, EXAM AND RADIOGRAPHS REVIEWED WITH THE PATIENT. REFERRING PHYSICIAN RECORDS AND IMAGES REVIEWED. CONDITION, NATURE, ETIOLOGY AND COURSE OF NATURAL HISTORY REVIEWED. CONSERVATIVE AND OPERATIVE TREATMENT OPTIONS REVIEWED WELL THE RISKS AND BENEFITS OF EACH. DISCUSSED NONOPERATIVE AND OPERATIVE TREATMENT OPTIONS WITH THE PATIENT. THE PATIENT'S QUESTIONS WERE ANSWERED. THE PATIENT DESIRES OPERATIVE TREATMENT. RISKS OF SURGERY INCLUDING BUT NOT LIMITED TO NEUROVASCULAR DAMAGE, WOUND COMPLICATIONS, BLOOD CLOT, PULMONARY EMBOLUS, STROKE, GA, ANESTHETIC RISKS UP TO AND INCLUDING WERE REVIEWED. CONTINUED PAIN AND POSSIBLE DYSFUNCTION WERE EXPLAINED. NO GUARANTEES WERE OFFERED. THE PATIENT UNDERSTANDS AND WISHES TO PROCEED. History of Present Illness HPI Consult date: 01/23/23 Chief complaint: diabetic foot,left big toe osteomyelitis Narrative: 61-year-old male admitted through the emergency room for left foot and cellulitis. The patient is a mildly confused today in a poor historian in regards to his foot. History of left great toe osteotomy in the past. Per the patient's , the patient was recently seen by a [employer] in [place]. He had developed an ulcer and wound then debrided and started on oral antibiotics. His left great toe started to get red and warm. he was taken to the ED for evaluation. Xrays in the ED showed suspicion osteomyelitis of the great toe. There was an obvious wound and ulceration as well. Orthopedic consultation was requested from the ED physician. Today the patient does not appear confused which he apparently was in the ED and with elevated wbc count. Review of Systems Review of Systems: All systems reviewed & are unremarkable except as noted in HPI and below PMFSH Past Medical History Medical History Cerebrovascular accident (06/2021) It sounds as though he had an ischemic stroke (symptoms include vertigo and visual changes) with hemorrhagic conversion. Chronic anemia Chronic obstructive pulmonary disease Coronary artery disease Status post bifurcation stents to the LAD and diagonal in 2006, stent to the LAD for in-stent restenoses in 2009, and CABG in April 2021 at [facility]. Diabetic foot ulcer Gastroesophageal reflux disease Hypertension Kidney stones ILANA on CPAP Peripheral arterial occlusive disease Seizure disorder Type 2 diabetes mellitus Surgical History Surgical History History of coronary artery bypass graft (04/2021) Done at [facility]. History of inguinal hernia repair times 2 History of myringoplasty History of percutaneous coronary intervention Bifurcation stents to LAD and diagonal in 2006. Stent to the LAD in 2009. (three stents) Family History Family History Mother Family history of diabetes mellitus in first degree relative Other Diabetes mellitus Hypertension Social History Social History Social History: The patient lives with his and 2 sons in [place]. His sons help him out. 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 He smoked about a pack a day for nearly 45 years and he quit at the time of his bypass in April 2021. He was a heavier
[2023-01-23 16:59] LABS: Glucose Point of Care 136 mg/dl (65-105)
[2023-01-23 20:31] LABS: Glucose Point of Care 183 mg/dl (65-105)
[2023-01-24] MEDS: PIPERACILLN/TAZ 3.375GM/NS50ML 3.375 GM/50 ML BAG IVPB ×4 (00:50→19:30)
[2023-01-24 03:11] LABS: Estimated CRCL calculation 75 ml/min; Estimated Glomerular Filt Rate > 60
[2023-01-24 03:28] LABS: Vancomycin Trough 11.3 ug/mL (10.0-20.0)
[2023-01-24 06:00] VITALS: BP 103/58; PULSE 72; RESP 16; TEMP 36.8; O2SAT 99
[2023-01-24] MEDS: carBAMazepine 200 MG TABLET PO ×3 (06:45→21:00)
[2023-01-24 07:55] LABS: Glucose Point of Care 95 mg/dl (65-105)
[2023-01-24 09:15] VITALS: PULSE 84
[2023-01-24] MEDS: carvediloL 3.125 MG TABLET PO ×2 (09:15→21:00)
[2023-01-24] MEDS: FENOFIBRATE 160 MG TABLET PO (09:17)
[2023-01-24] MEDS: OLANZapine 5 MG TABLET 10 MG PO ×2 (09:18→21:00)
[2023-01-24] MEDS: lisinopriL 5 MG TABLET PO (09:18)
[2023-01-24] MEDS: EMPAGLIFLOZIN 10 MG TABLET PO (09:18)
[2023-01-24] MEDS: ASPIRIN 81 MG ENTERIC TABLET PO (09:18)
[2023-01-24] MEDS: ATORVASTATIN 40 MG TABLET PO (09:18)
--- NOTE | 2023-01-24 10:27 | PM.IMPN ---
Progress Note: A&P Assessment and Plan (1) Osteomyelitis of great toe of left foot: Code(s): M86.9 - Osteomyelitis, unspecified Status: Acute Assessment and Plan: The patient was started on Zosyn and vancomycin. Blood cultures are pending. Dr. Flower has been consulted. Check arterial Dopplers. His white count is 13.7. History of having osteomyelitis in the past and had a PICC line in the past. The patient stated that he would not have another PICC line. Foot X-Ray 01/22/23 12:44 IMPRESSION: 1. Advanced osteomyelitis with osteolysis involving the majority the mid to distal left first distal phalanx with secondary likely pathologic the intra-articular fracture at the lateral side of the remaining base of the first distal phalanx. 2. Changes consistent with chronic osteomyelitis at the third and fourth toes and with osteotomies apical size of a now widened second metatarsophalangeal joint. Continue with analgesics. Await surgical plan (2) ILANA on CPAP: Code(s): G47.33 - Obstructive sleep apnea (adult) (pediatric) Status: Acute Assessment and Plan: Continue with home settings. (3) Peripheral arterial occlusive disease: Code(s): I77.9 - Disorder of arteries and arterioles, unspecified Status: Acute Assessment and Plan: Arterial Dopplers were ordered. (4) BPH (benign prostatic hyperplasia): Code(s): N40.0 - Benign prostatic hyperplasia without lower urinary tract symptoms Status: Acute Assessment and Plan: Continue with home medications. (5) Coronary artery disease: Code(s): I25.10 - Atherosclerotic heart disease of [place] coronary artery without angina pectoris Status: Acute Assessment and Plan: Continue with aspirin Coreg and fenofibrate (6) Hypertension: Code(s): I10 - Essential (primary) hypertension Status: Acute Assessment and Plan: Continue with Coreg (7) Type 2 diabetes mellitus: Code(s): E11.9 - Type 2 diabetes mellitus without complications Status: Acute Assessment and Plan: Accu-Cheks AC and HS check A1c. Sliding scale insulin with hypoglycemic protocol. Continue with glargine. Continue Jardiance (8) Chronic obstructive pulmonary disease: Code(s): J44.9 - Chronic obstructive pulmonary disease, unspecified Status: Acute Assessment and Plan: P.r.n. albuterol Subjective Date/time seen: 01/24/23 10:27 Interval history: No complaints Exam Const: General: cooperative, healthy appearing, comfortable, no acute distress, well developed, alert, awake, Physically active, average body habitus and well nourished Nutritional Appearance: average body habitus and well nourished Orientation/consciousness: oriented to person, oriented to place, oriented to time and patient oriented x3 Limitations: no limitations Other: The patient is a poor historian. HENMT: Head: normal to inspection, No palpable skull fracture present, normocephalic and atraumatic Ears: hearing grossly normal bilaterally and external ears normal Face/Nose/Sinus: Normal external nose present and Normal nares present Eyes: General: appearance normal, both eyes and all related structures Alignment and Position: alignment normal Periorbital: periorbital findings normal Eyelids: eyelids normal Sclera: sclerae normal Pupils: Equal, round and reactive pupils present EOM: EOMs intact bilaterally Neck: Neck: normal visual inspection, full ROM, no lymphadenopathy, trachea midline and supple Chest: Chest palpation & inspection: normal inspection of the chest Resp: Effort & Inspection: normal respiratory effort Auscultation: clear to auscultation bilaterally Cardio: Palpation: normal PMI Rate: tachycardic Rhythm: regular rhythm Heart sounds: S1 normal heart sound present and S2 normal heart sound present Peripheral pulses: Peripheral pulses 2+ throughout GI: Inspection: normal to inspection
--- NOTE | 2023-01-24 11:52 | PC.NURSE ---
I reviewed the License Pending Nurse's documentation, Manuela Young, and agree with the findings.
[2023-01-24 12:00] VITALS: BMI 25.3
[2023-01-24 12:14] LABS: Glucose Point of Care 117 mg/dl (65-105)
[2023-01-24 14:45] VITALS: BP 114/66; PULSE 68; RESP 18; TEMP 36.3; O2SAT 98
[2023-01-24 17:00] LABS: Glucose Point of Care 152 mg/dl (65-105)
[2023-01-24 19:26] LABS: Glucose Point of Care 168 mg/dl (65-105)
--- NOTE | 2023-01-24 19:43 | PC.NURSE ---
On 01/24/23, the graduate nurse, Manuela Patino, provided care and completed [facility] documentation on this patient. I have reviewed the student's documentation and agree with the findings.
[2023-01-24 20:16] VITALS: BP 111/69; PULSE 80; RESP 18; TEMP 36.4; O2SAT 100
[2023-01-24 21:00] VITALS: PULSE 80
[2023-01-24] MEDS: INSULIN GLARGINE (*BKC) 100 UNITS/ML 45 UNITS SUB-Q (21:00)
[2023-01-25] VITALS (7 sets, daily range): BP systolic 102–129; BP diastolic 65–82; PULSE 78–95; RESP 14–20; TEMP 36.1–36.4; O2SAT 94–99
[2023-01-25] MEDS: PIPERACILLN/TAZ 3.375GM/NS50ML 3.375 GM/50 ML BAG IVPB ×4 (00:21→17:53)
[2023-01-25] MEDS: carBAMazepine 200 MG TABLET PO ×3 (05:03→20:55)
[2023-01-25 05:56] LABS: Estimated CRCL calculation 69 ml/min; Estimated Glomerular Filt Rate > 60
[2023-01-25 09:11] LABS: Glucose Point of Care 80 mg/dl (65-105)
[2023-01-25] MEDS: EMPAGLIFLOZIN 10 MG TABLET PO (10:33)
[2023-01-25] MEDS: OLANZapine 5 MG TABLET 10 MG PO ×2 (10:34→20:50)
[2023-01-25] MEDS: FENOFIBRATE 160 MG TABLET PO (10:37)
[2023-01-25] MEDS: lisinopriL 5 MG TABLET PO (10:37)
[2023-01-25] MEDS: ASPIRIN 81 MG ENTERIC TABLET PO (10:37)
[2023-01-25] MEDS: ATORVASTATIN 40 MG TABLET PO (10:37)
--- NOTE | 2023-01-25 11:22 | PM.IMPN ---
Progress Note: A&P Assessment and Plan (1) Osteomyelitis of great toe of left foot: Code(s): M86.9 - Osteomyelitis, unspecified Status: Acute Assessment and Plan: The patient was started on Zosyn and vancomycin. Blood cultures are pending. Ortho consulted, awaiting surgical plan. Foot X-Ray 01/22/23 12:44 IMPRESSION: 1. Advanced osteomyelitis with osteolysis involving the majority the mid to distal left first distal phalanx with secondary likely pathologic the intra-articular fracture at the lateral side of the remaining base of the first distal phalanx. 2. Changes consistent with chronic osteomyelitis at the third and fourth toes and with osteotomies apical size of a now widened second metatarsophalangeal joint. Continue with analgesics. Await surgical plan (2) ILANA on CPAP: Code(s): G47.33 - Obstructive sleep apnea (adult) (pediatric) Status: Acute Assessment and Plan: Continue with home settings. (3) Peripheral arterial occlusive disease: Code(s): I77.9 - Disorder of arteries and arterioles, unspecified Status: Acute Assessment and Plan: Arterial Dopplers were ordered. (4) BPH (benign prostatic hyperplasia): Code(s): N40.0 - Benign prostatic hyperplasia without lower urinary tract symptoms Status: Acute Assessment and Plan: Continue with home medications. (5) Coronary artery disease: Code(s): I25.10 - Atherosclerotic heart disease of [place] coronary artery without angina pectoris Status: Acute Assessment and Plan: Continue with aspirin Coreg and fenofibrate (6) Hypertension: Code(s): I10 - Essential (primary) hypertension Status: Acute Assessment and Plan: Continue with Coreg (7) Type 2 diabetes mellitus: Code(s): E11.9 - Type 2 diabetes mellitus without complications Status: Acute Assessment and Plan: Accu-Cheks AC and HS check A1c. Sliding scale insulin with hypoglycemic protocol. Continue with glargine. Continue Jardiance (8) Chronic obstructive pulmonary disease: Code(s): J44.9 - Chronic obstructive pulmonary disease, unspecified Status: Acute Assessment and Plan: P.r.n. albuterol Subjective Date/time seen: 01/25/23 11:22 Interval history: no new complaints doing ok today Exam Const: General: cooperative, healthy appearing, comfortable, no acute distress, well developed, alert, awake, Physically active, average body habitus and well nourished Nutritional Appearance: average body habitus and well nourished Orientation/consciousness: oriented to person, oriented to place, oriented to time and patient oriented x3 Limitations: no limitations Other: The patient is a poor historian. HENMT: Head: normal to inspection, No palpable skull fracture present, normocephalic and atraumatic Ears: hearing grossly normal bilaterally and external ears normal Face/Nose/Sinus: Normal external nose present and Normal nares present Eyes: General: appearance normal, both eyes and all related structures Alignment and Position: alignment normal Periorbital: periorbital findings normal Eyelids: eyelids normal Sclera: sclerae normal Pupils: Equal, round and reactive pupils present EOM: EOMs intact bilaterally Neck: Neck: normal visual inspection, full ROM, no lymphadenopathy, trachea midline and supple Chest: Chest palpation & inspection: normal inspection of the chest Resp: Effort & Inspection: normal respiratory effort Auscultation: clear to auscultation bilaterally Cardio: Palpation: normal PMI Rate: tachycardic Rhythm: regular rhythm Heart sounds: S1 normal heart sound present and S2 normal heart sound present Peripheral pulses: Peripheral pulses 2+ throughout GI: Inspection: normal to inspection Auscultation: normal bowel sounds Rectal Exam: deferred Back/Spine/Pelvis: Cervical Spine: cervical ROM normal Skin: General skin exam: normal color Lesions:
[2023-01-25 11:48] LABS: Glucose Point of Care 155 mg/dl (65-105)
--- NOTE | 2023-01-25 14:04 | PM.CNOR ---
Assessment and Plan Assessment and plan (1) Osteomyelitis of great toe of left foot: Code(s): M86.9 - Osteomyelitis, unspecified Status: Acute Assessment and Plan: Orthopedic consultation reviewed. Patient is known to the Orthopedic service for previous left foot osteomyelitis and diabetic foot ulcer appears to be doing well. He has a new ulcer and osteo of the hallux. He was started on IV antibiotics. Limited ability for healing without surgical treatment. Discussed with patient. Risks, benefits and alternatives reviewed. He would like to proceed. Discussed nonoperative and operative treatment options with the patient. Risks and benefits of each as well as alternatives were reviewed. All of the patient's questions were answered. The risks of surgery reviewed including but not limited to: Neurovascular damage, wound complication, infection, blood clot, pulmonary embolus, stroke, myocardial infarction, and anesthetic risks up to and including . Continued pain and possible dysfunction were explained. Specific risks of the procedure including later recurrence of deformity. No guarantees were offered. If hardware used, discussed risk of failure/ breakage and possible need for removal. If complications occur, the patient understands the need for further treatment, possible further surgery. Patient verbalizes understanding and wishes to proceed. PLAN: Left hallux amputation. (2) Diabetic foot ulcer: Qualifiers: Diabetic foot ulcer location: toe Diabetes mellitus type: type 2 Laterality: left Non-pressure ulcer stage: with necrosis of bone Qualified Code(s): E11.621 - Type 2 diabetes mellitus with foot ulcer; L97.524 - Non-pressure chronic ulcer of other 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 Code(s): E11.621 - Type 2 diabetes mellitus with foot ulcer; L97.509 - Non-pressure chronic ulcer of other part of unspecified foot with unspecified severity Status: Acute (3) Type 2 diabetes mellitus: Qualifiers: Diabetes mellitus fpc insulin use: with fpc use Diabetes mellitus complication status: with circulatory complication Diabetes mellitus complication detail: with other circulatory complications Qualified Code(s): E11.59 - Type 2 diabetes mellitus with other circulatory complications; Z79.4 - intermediate designer (current) use of insulin Code(s): E11.9 - Type 2 diabetes mellitus without complications Status: Acute History of Present Illness HPI Consult date: 01/25/23 Requesting physician: Darci Rodriguez MD Chief complaint: diabetic foot,left big toe osteomyelitis Narrative: 62-year-old with peripheral neuropathy history of previous osteomyelitis left foot was admitted through the emergency room with the chronic ulcer of the hallux. Patient difficult with history with states he and his noticed it several weeks ago. He had been on oral antibiotics. Denies pain. Noticed increased drainage and foul odor and presented to the emergency room. Review of Systems Constitutional: Constitutional: Denies fever(s) Eyes: Eyes: Denies blurry vision ENT: Reports Normal hearing present Cardiovascular: Cardiovascular: Denies chest pain and Denies dyspnea Respiratory: Respiratory: Denies dyspnea and Denies wheezing Gastrointestinal: Gastrointestinal: Denies abdominal pain Genitourinary: Genitourinary: Denies urinary urgency Musculoskeletal: Musculoskeletal: Reports as per HPI and Denies numbness Integumentary/Breasts: Skin/Breast: Denies changing lesions and Denies sores Neurologic: Reports Normal hearing present, Denies behavioral changes, Denies confusion, Denies numbness and Denies convulsions Psychiatric: Psychiatric: Denies behavioral changes, Denies confusion and Denies hallucinations Endocrine: Endocrine: Denies heat intolerance Hematologic/Lymphatic: Hematologic/Lymphatic: Denies easy bleeding Allergic/Immunologic: Allergic/Immunologic:
[2023-01-25 15:22] LABS: Vancomycin Trough 20.7 ug/mL (10.0-20.0)
[2023-01-25 17:13] LABS: Glucose Point of Care 117 mg/dl (65-105)
--- NOTE | 2023-01-25 19:00 | PC.NURSE ---
01/25/[address] Malik for unsuccessful attempts to straight catheterize patient. Asked to use a coude catheter. Myself and other nurses had many unsuccessful attempts using a coude tip catheter. Had to call Dr. Malik again for further orders. He ordered to consult Urology.
--- NOTE | 2023-01-25 19:05 | PC.NURSE ---
1845 01/25/23 Shahrzad who is the of patient gave consent over the phone to perform the surgical procedure scheduled for 01/26/23. Consent was verified by another nurse.
[2023-01-25] MEDS: VANCOMYCIN 1,250 MG/NS 250 ML 1,250 MG/250 ML BAG 166.67 MG IVPB (19:31)
[2023-01-25] MEDS: carvediloL 3.125 MG TABLET PO (20:50)
[2023-01-25] MEDS: INSULIN GLARGINE (*BKC) 100 UNITS/ML 45 UNITS SUB-Q (20:51)
[2023-01-25 20:59] LABS: Glucose Point of Care 137 mg/dl (65-105)
[2023-01-26] VITALS (24 sets, daily range): BP systolic 87–120; BP diastolic 57–81; PULSE 74–95; RESP 14–20; TEMP 36.1–36.8; O2SAT 93–100
[2023-01-26] MEDS: PIPERACILLN/TAZ 3.375GM/NS50ML 3.375 GM/50 ML BAG IVPB ×5 (00:57→23:28)
[2023-01-26 06:23] LABS: Glucose Point of Care 72 mg/dl (65-105)
[2023-01-26] MEDS: LACTATED RINGERS 1,000 ML 30 ML IV CONT ×2 (06:27→12:49)
[2023-01-26] MEDS: VANCOMYCIN 1,250 MG/NS 250 ML 1,250 MG/250 ML BAG 166.67 MG IVPB (06:38)
--- NOTE | 2023-01-26 07:03 | WPDHPUPDATE1 ---
History and Physical Update Update Date/Time: 01/26/23 07:03 History and Physical has been reviewed, including an updated exam of the patient. There are NO changes in the patient's condition. Risks, benefits, and alternatives have been discussed and questions answered. Patient agrees to proceed with procedure.
--- NOTE | 2023-01-26 07:13 | WPDANESEPPF ---
Anes - Initial Pre Proc Eval Procedure: Operation Date: 01/26/23 07:30 Proposed Procedures p Left Hallux Amputation - Rashid Flower MD Date/Time: 01/26/23 07:13 Surgeon: Jeffrey Tran MD Pre Op Diagnosis: diabetic foot,left big toe osteomyelitis Patient Data Age: 62 Gender: M Height: 1.83 m Weight: 84.8 kg Last Vital Signs Temp 97.7 F 01/26/23 03:57 Pulse 77 01/26/23 03:57 Resp 18 01/26/23 03:57 BP 109/76 01/26/23 03:57 Pulse Ox 97 01/26/23 03:57 O2 Del Method Room Air 01/25/23 10:35 Allergies Allergy/AdvReac Type Severity Reaction Status Date / Time metoclopramide AdvReac Mild Vomiting Verified 01/26/23 06:27 Home Medications Medication Instructions Recorded Confirmed Type aspirin 81 mg tablet,delayed 81 mg PO DAILY 09/05/21 01/22/23 History release (Adult Low Dose Aspirin) atorvastatin 40 mg tablet (Lipitor) 40 mg PO DAILY 09/05/21 01/22/23 History carvedilol 3.125 mg tablet (Coreg) 3.125 mg PO Q12H 09/05/21 01/22/23 History empagliflozin 10 mg tablet 10 mg PO DAILY 09/05/21 01/22/23 History (Jardiance) fenofibrate 160 mg tablet 160 mg PO DAILY 09/05/21 01/22/23 History lisinopril 5 mg tablet (Zestril) 5 mg PO DAILY 09/05/21 01/22/23 History carbamazepine 200 mg tablet 200 mg PO Q8HR #90 tabs 09/07/21 01/22/23 Rx insulin glargine 100 unit/mL (3 45 unit subcut HS 03/11/22 01/22/23 History mL) subcutaneous pen (Lantus Solostar U-100 Insulin) olanzapine 20 mg tablet 10 mg PO Q12H 03/11/22 01/22/23 History Laboratory Tests 01/25/23 01/25/23 01/25/23 09:03 11:43 14:49 POC Capillary Glucose 80 mg/dl 155 H mg/dl (65-105) (65-105) Vancomycin Trough 20.7 H ug/mL (10.0-20.0) 01/25/23 01/25/23 01/26/23 16:56 19:59 06:19 POC Capillary Glucose 117 H mg/dl 137 H mg/dl 72 mg/dl (65-105) (65-105) (65-105) Vancomycin Trough Patient hx anesthesia problems: none Family hx anesthesia problems: none Results Review: All pre-operative results and documents have been reviewed as part of the pre-operative evaluation. [facility] Past Medical History Medical History Cerebrovascular accident (06/2021) It sounds as though he had an ischemic stroke (symptoms include vertigo and visual changes) with hemorrhagic conversion. Chronic anemia Chronic obstructive pulmonary disease Coronary artery disease Status post bifurcation stents to the LAD and diagonal in 2006, stent to the LAD for in-stent restenoses in 2009, and CABG in [place] [facility]. Diabetic foot ulcer Gastroesophageal reflux disease Hypertension Kidney stones ILANA on CPAP Peripheral arterial occlusive disease Seizure disorder Type 2 diabetes mellitus Surgical History Surgical History History of coronary artery bypass graft (04/2021) Done at [facility]. History of inguinal hernia repair times 2 History of myringoplasty History of percutaneous coronary intervention Bifurcation stents to LAD and diagonal in 2006. Stent to the LAD in 2009. (three stents) Family History Family History Mother Family history of diabetes mellitus in first degree relative Other Diabetes mellitus Hypertension Social History Social History Social History: The patient lives with his and 2 sons in [place]. His sons help him out. 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 He smoked about a pack a day for nearly 45 years and he quit at the time of his bypass in April 2021. He was a heavier drinker in his younger years. No illicit substance use. Surrogate medical decision maker: Shahrzad Qiu, . Code status: Full code. Smoking packs per day: 1.5 Smoking cigarettes per day: 30.0 Years s
[2023-01-26] MEDS: DEXTROSE 50% 25 GM/50 ML SYRINGE IV PUSH ×2 (07:25→14:36)
[2023-01-26] MEDS: BUPivacaine HCL 0.5% 10 ML AMP INFILTRATE (07:57)
--- NOTE | 2023-01-26 08:08 | W.PM.PROC2 ---
Procedure Note - Detailed Date of Procedure 01/26/23 Pre-op Diagnosis diabetic foot,left big toe osteomyelitis Post-op Diagnosis Same Procedure Performed Left hallux amputation Surgeon Rashid Flower MD Manager Corporate Strategy 1st assist Anesthesia General Indications 62-year-old with diabetes, peripheral neuropathy admitted with osteomyelitis left hallux with diabetic toe ulcer. Presents for operative treatment with hallux amputation. Findings Osteomyelitis distal phalanx of the hallux which did not proceed proximal to the interphalangeal joint. Description of Procedure Patient identified in the preoperative holding. Informed consent given. Operative extremity marked. Patient received intravenous antibiotics. Patient brought to the operating room where underwent general anesthetic by anesthesia team. Positioned supine on operating room table. Time-out performed confirming the patient, site of the surgery and the plan. Left foot prepped and draped in usual sterile surgical fashion using Betadine prep solution. foot exsanguinated with an Esmarch bandage which was secured at the ankle as a tourniquet. There was an 2.5cm ulcer over the plantar distal aspect of the hallux which revealed full-thickness necrosis with exposed bone of the distal phalanx. No ability to heal the wound and no soft tissue coverage of the bone, amputation of the hallux was indicated. Fifteen blade knife used to make fishmouth shaped incision at the base of the hallux. Hemostasis controlled with electrocautery. Interphalangeal-Joint incised circumferentially with a 15 blade knife and hallux removed and passed off the table. Distal end of the proximal phalanx removed with bone cutter and smoothed with a rongeur. Thorough irrigation done. Wound thoroughly irrigated again. Wound closed with 2 0 Vicryl interrupted suture for the deep tissue, 3 O Monocryl interrupted suture for the subcutaneous tissue and O Prolene interrupted sutures for the skin. Sterile dressings applied. Patient awoke from anesthesia, extubated and taken to the recovery room in stable condition. All sponge needle and instrument counts correct at the end the case. Estimated Blood Loss 2 Tourniquet Time 20 Drains No Packing No Pathology Yes ( distal hallux left foot) Complications None Condition Stable Disposition PACU [facility] Billing Surgery - Charge Forward: Surgery Billing ([id number])
[2023-01-26 08:13] LABS: Glucose Point of Care 95 mg/dl (65-105)
--- NOTE | 2023-01-26 09:08 | WPDURCON ---
Assessment and Plan Assessment and plan (1) BPH (benign prostatic hyperplasia): Code(s): N40.0 - Benign prostatic hyperplasia without lower urinary tract symptoms Status: Acute Assessment and Plan: Start Flomax and Finasteride. (2) Retention of urine: Code(s): R33.9 - Retention of urine, unspecified Status: Acute Assessment and Plan: PVR on bladder scan was >600cc. Straight cath unable to be placed. (3) Difficult Saldaña catheter placement: Code(s): T83.9XXA - Unspecified complication of genitourinary prosthetic device, implant and graft, initial encounter Status: Acute Assessment and Plan: I attempted a 16fr coude and straight catheter placement at the bedside but was unsuccessful. The patient tolerated well. He will go to the OR today with Dr. Morales for: Cystoscopy with urethral dilation and complex catheter placement. Obtain consent. Keep NPO. Urology Consult Note HPI Date Seen: 01/26/23 Time Seen: 09:08 Requesting Physician: Jeffrey Tran MD Primary Care Provider: Rylee Islas, Consult Narrative Reason for consult: Retention/BPH Narrative: Baldev Qiu is a 62 year old male who was initially seen for osteomyelitis of the left great toe in the ER on 01/22/23. Since his admission he has developed difficulty with urination. He strains and has the urge to urinate but cannot. He had a bladder scan last night that measured about 600cc but is only able to urinate 50cc at a time. He was attempted to be straight catheterized several times overnight with a coude catheter, but they were unsuccessful d/t obstruction in the urethra from what is believed to be BPH. His WBC is 12.3, creatinine is 1.10, blood cultures are preliminarily negative, no symptoms of a UTI at this time. He had a left Hallux Amputation this morning with Dr. Tirado secondary to his osteomyelitis and continued to have difficultly urinating in a urinal in recovery this morning. Dr. Hinojosa performed a dilation of a urethral stricture in 03/11 on the patient d/t a similar incident while hospitalized at that time. The patient states that he has struggled with urination for years, but has never taken any BPH medications. He is reluctant to have a saldaña catheter at this time, but has a strong urge to urinate although he cannot. Review of Systems Cardiovascular: Cardiovascular: Denies chest pain Respiratory: Respiratory: Reports no additional respiratory complaints Gastrointestinal: Gastrointestinal: Denies abdominal pain, Denies nausea and Denies vomiting Genitourinary: Genitourinary: Denies hematuria, Reports oliguria, Denies dysuria, Denies flank pain, Reports urinary frequency, Reports urinary hesitancy, Denies urinary incontinence and Reports urinary urgency [facility] Past Medical History Medical History Cerebrovascular accident (06/2021) It sounds as though he had an ischemic stroke (symptoms include vertigo and visual changes) with hemorrhagic conversion. Chronic anemia Chronic obstructive pulmonary disease Coronary artery disease Status post bifurcation stents to the LAD and diagonal in 2006, stent to the LAD for in-stent restenoses in 2009, and CABG in April 2021 at [facility]. Diabetic foot ulcer Gastroesophageal reflux disease Hypertension Kidney stones ILANA on CPAP Peripheral arterial occlusive disease Seizure disorder Type 2 diabetes mellitus Surgical History Surgical History History of coronary artery bypass graft (04/2021) Done at [facility]. History of inguinal hernia repair times 2 History of myringoplasty History of percutaneous coronary intervention Bifurcation stents to LAD and diagonal in 2006. Stent to the LAD in 2009. (three stents) Family History Family History Mother Fam
[2023-01-26] MEDS: FENOFIBRATE 160 MG TABLET PO (09:18)
[2023-01-26] MEDS: lisinopriL 5 MG TABLET PO (09:18)
[2023-01-26] MEDS: OLANZapine 5 MG TABLET 10 MG PO ×2 (09:18→20:13)
[2023-01-26] MEDS: ASPIRIN 81 MG ENTERIC TABLET PO (09:18)
[2023-01-26] MEDS: EMPAGLIFLOZIN 10 MG TABLET PO (09:18)
[2023-01-26] MEDS: ATORVASTATIN 40 MG TABLET PO (09:18)
[2023-01-26] MEDS: carvediloL 3.125 MG TABLET PO ×2 (09:19→20:13)
--- NOTE | 2023-01-26 10:33 | PM.IMPN ---
Progress Note: A&P Assessment and Plan (1) Osteomyelitis of great toe of left foot: Code(s): M86.9 - Osteomyelitis, unspecified Status: Acute Assessment and Plan: The patient was started on Zosyn and vancomycin. Blood cultures are pending. Ortho consulted, awaiting surgical plan. Foot X-Ray 01/22/23 12:44 IMPRESSION: 1. Advanced osteomyelitis with osteolysis involving the majority the mid to distal left first distal phalanx with secondary likely pathologic the intra-articular fracture at the lateral side of the remaining base of the first distal phalanx. 2. Changes consistent with chronic osteomyelitis at the third and fourth toes and with osteotomies apical size of a now widened second metatarsophalangeal joint. Continue with analgesics. Await surgical plan (2) ILANA on CPAP: Code(s): G47.33 - Obstructive sleep apnea (adult) (pediatric) Status: Acute Assessment and Plan: Continue with home settings. (3) Peripheral arterial occlusive disease: Code(s): I77.9 - Disorder of arteries and arterioles, unspecified Status: Acute Assessment and Plan: Arterial Dopplers were ordered. (4) BPH (benign prostatic hyperplasia): Code(s): N40.0 - Benign prostatic hyperplasia without lower urinary tract symptoms Status: Acute Assessment and Plan: Continue with home medications. (5) Coronary artery disease: Code(s): I25.10 - Atherosclerotic heart disease of [place] coronary artery without angina pectoris Status: Acute Assessment and Plan: Continue with aspirin Coreg and fenofibrate (6) Hypertension: Code(s): I10 - Essential (primary) hypertension Status: Acute Assessment and Plan: Continue with Coreg (7) Type 2 diabetes mellitus: Qualifiers: Diabetes mellitus technician terminal and repeater insulin use: with technician terminal and repeater use Diabetes mellitus complication status: with circulatory complication Diabetes mellitus complication detail: with other circulatory complications Qualified Code(s): E11.59 - Type 2 diabetes mellitus with other circulatory complications; Z79.4 - continuous churn buttermaker (current) use of insulin Code(s): E11.9 - Type 2 diabetes mellitus without complications Status: Acute Assessment and Plan: Accu-Cheks AC and HS check A1c. Sliding scale insulin with hypoglycemic protocol. Continue with glargine. Continue Jardiance (8) Chronic obstructive pulmonary disease: Code(s): J44.9 - Chronic obstructive pulmonary disease, unspecified Status: Acute Assessment and Plan: P.r.n. albuterol Subjective Date/time seen: 01/26/23 10:33 Interval history: no complaints Exam Narrative: General appearance: Well-developed, well-nourished, looks ill Skin: Normal color Head: Normocephalic, nontraumatic Eyes: Clear conjunctiva ENT: Oropharynx normal, ears normal, nose normal Neck: Supple, nontender Chest and respiratory: Airway patent, no respiratory distress, no accessory muscle use Heart: Regular rate/rhythm Abdomen: Soft, nontender, no organomegaly, quiet bowel sounds Vascular: Decreased capillary refill, peripheral pulses, intact Musculoskeletal: Left foot exam showed swelling, erythematous changes around the big toe, complete big toe nail avulsion, 1 x 1 cm deep ulcer with black necrotic tissue. Neurologic: Alert and oriented ?3, HIGH S[employer] ACADEMIC COACH is normal as tested, no gross motor deficit Const: General: cooperative, healthy appearing, comfortable, no acute distress, well developed, alert, awake, Physically active, average body habitus and well nourished Nutritional Appearance: average body habitus and well nourished Orientation/consciou
--- NOTE | 2023-01-26 11:00 | PCOTNOTE ---
Per RN and chart, pt is going back to the OR later today due to urinary retention. Will continue to follow for OT evaluation.
--- NOTE | 2023-01-26 11:18 | PCPTNOTE ---
PER OT: Per RN and chart, pt is going back to the OR later today due to urinary retention. Will follow.
[2023-01-26 11:43] LABS: Glucose Point of Care 86 mg/dl (65-105)
--- NOTE | 2023-01-26 12:26 | WPDHPUPDATE1 ---
History and Physical Update Update Date/Time: 01/26/23 12:26 History and Physical has been reviewed, including an updated exam of the patient. There are NO changes in the patient's condition. Risks, benefits, and alternatives have been discussed and questions answered. Patient agrees to proceed with procedure. Proceed with cystoscopy, retrograde, urethrogram, urethral dilation , saldaña placement.
--- NOTE | 2023-01-26 12:49 | WPDANESEPPF ---
Anes - Initial Pre Proc Eval Procedure: Operation Date: 01/26/23 07:30 Proposed Procedures p Left Hallux Amputation - Rashid Flower MD Operation Date: 01/26/23 14:15 Proposed Procedures p Cystoscopy, Urethral Dilatation, Complex Catheter Insertion - Manuel Morales MD Date/Time: 01/26/23 12:49 Surgeon: Jeffrey Tran MD Pre Op Diagnosis: diabetic foot,left big toe osteomyelitis Patient Data Age: 62 Gender: M Height: 1.83 m Weight: 84.8 kg Last Vital Signs Temp 97.6 F 01/26/23 08:08 Pulse 95 01/26/23 09:19 Resp 14 01/26/23 09:00 BP 112/74 01/26/23 09:00 Pulse Ox 93 01/26/23 09:00 O2 Del Method Room Air 01/26/23 09:00 O2 Flow Rate 6 01/26/23 08:20 Allergies Allergy/AdvReac Type Severity Reaction Status Date / Time metoclopramide AdvReac Mild Vomiting Verified 01/26/23 06:27 Home Medications Medication Instructions Recorded Confirmed Type aspirin 81 mg tablet,delayed 81 mg PO DAILY 09/05/21 01/22/23 History release (Adult Low Dose Aspirin) atorvastatin 40 mg tablet (Lipitor) 40 mg PO DAILY 09/05/21 01/22/23 History carvedilol 3.125 mg tablet (Coreg) 3.125 mg PO Q12H 09/05/21 01/22/23 History empagliflozin 10 mg tablet 10 mg PO DAILY 09/05/21 01/22/23 History (Jardiance) fenofibrate 160 mg tablet 160 mg PO DAILY 09/05/21 01/22/23 History lisinopril 5 mg tablet (Zestril) 5 mg PO DAILY 09/05/21 01/22/23 History carbamazepine 200 mg tablet 200 mg PO Q8HR #90 tabs 09/07/21 01/22/23 Rx insulin glargine 100 unit/mL (3 45 unit subcut HS 03/11/22 01/22/23 History mL) subcutaneous pen (Lantus Solostar U-100 Insulin) olanzapine 20 mg tablet 10 mg PO Q12H 03/11/22 01/22/23 History Laboratory Tests 01/25/23 01/25/23 01/25/23 14:49 16:56 19:59 POC Capillary Glucose 117 H mg/dl 137 H mg/dl (65-105) (65-105) Vancomycin Trough 20.7 H ug/mL (10.0-20.0) 01/26/23 01/26/23 01/26/23 06:19 08:11 11:37 POC Capillary Glucose 72 mg/dl 95 mg/dl 86 mg/dl (65-105) (65-105) (65-105) Vancomycin Trough Patient hx anesthesia problems: none Family hx anesthesia problems: none Results Review: All pre-operative results and documents have been reviewed as part of the pre-operative evaluation. [facility] Past Medical History Medical History Cerebrovascular accident (06/2021) It sounds as though he had an ischemic stroke (symptoms include vertigo and visual changes) with hemorrhagic conversion. Chronic anemia Chronic obstructive pulmonary disease Coronary artery disease Status post bifurcation stents to the LAD and diagonal in 2006, stent to the LAD for in-stent restenoses in 2009, and CABG in April 2021 at [facility]. Diabetic foot ulcer Gastroesophageal reflux disease Hypertension Kidney stones ILANA on CPAP Peripheral arterial occlusive disease Seizure disorder Type 2 diabetes mellitus Surgical History Surgical History History of coronary artery bypass graft (04/2021) Done at [facility]. History of inguinal hernia repair times 2 History of myringoplasty History of percutaneous coronary intervention Bifurcation stents to LAD and diagonal in 2006. Stent to the LAD in 2009. (three stents) Family History Family History Mother Family history of diabetes mellitus in first degree relative Other Diabetes mellitus Hypertension Social History Social History Social History: The patient lives with his and 2 sons in [place]. His sons help him out. 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 He smoked about a pack a day for nearly 45 years and he quit at the time of his bypass in April 2021. He was a heavier drinker in his younger y
--- NOTE | 2023-01-26 12:54 | SUR.PREOP ---
RIGHT LOWER LEG ELEVATED ON 2 PILLOWS
--- NOTE | 2023-01-26 14:17 | P.OP_ITS ---
Procedure Note - Detailed Date of Procedure 01/26/23 Pre-op Diagnosis Urinary retention with urethral stricture Post-op Diagnosis Same Procedure Performed Retrograde urethrogram, urethral dilation using Amplantz dilators to 24 fr, cystoscopy, complex Osorio catheter placement 18 [place] tip Surgeon Manuel Morales MD Anesthesia General Findings Approximately 8 [place] bulbar urethral stricture Description of Procedure Patient was taken to the operative suite correctly identified. Once anesthesia was obtained was placed in dorsal lithotomy position and prepped draped usual sterile fashion. Twenty-two [place] scope was inserted into the urethra. He has a bulbar urethral stricture measuring approximately 8 [place]. [place] tip catheter was then placed in meatus and retrograde was performed. Contrast made its way into the bladder. Sensor wire was then inserted through the stricture. Using Amplantz dilators the stricture was dilated up to 24 [place]. Cysto was then performed. The urethra was patent. Prostate was nonobstructive. Bladder is without any evidence of tumors but does have 1+ trabeculation. 2% viscous lidocaine was inserted into urethra. Eighteen [place] tip catheter was inserted over the guidewire into the bladder. Balloon was inflated with 10 cc of sterile water. Patient is taken recovery stable condition. Will recommend leaving the Osorio catheter in until Tuesday for a voiding trial at that time. He should follow-up in the office with our nurse practitioner in 3-4 weeks time. This completes to take a daley on this patient. Please send a copy of op note to my office Estimated Blood Loss 0 Drains Yes Packing No Pathology None sent Complications No immediate complications Condition Stable Disposition PACU
[2023-01-26 14:32] LABS: Glucose Point of Care 72 mg/dl (65-105)
[2023-01-26 15:12] LABS: Glucose Point of Care 97 mg/dl (65-105)
--- NOTE | 2023-01-26 15:36 | PC.NURSE ---
Patient to floor from recovery @ 1419.
[2023-01-26 17:04] LABS: Glucose Point of Care 94 mg/dl (65-105)
[2023-01-26] MEDS: VANCOMYCIN 1,250 MG/NS 250 ML 1,250 MG/250 ML BAG 125 MG IVPB (18:16)
[2023-01-26] MEDS: ACETAMINOPHEN 325 MG TABLET 650 MG PO (20:16)
[2023-01-26] MEDS: carBAMazepine 200 MG TABLET PO (20:16)
[2023-01-26 20:21] LABS: Glucose Point of Care 128 mg/dl (65-105)
[2023-01-26] MEDS: INSULIN GLARGINE (*BKC) 100 UNITS/ML 45 UNITS SUB-Q (20:22)
[2023-01-26] MEDS: HYDROcodone/acetaminophen (*CRX) 5-325 MG TABLET 1 TAB PO (23:36)
[2023-01-27] MEDS: carBAMazepine 200 MG TABLET PO ×3 (05:03→20:53)
[2023-01-27] MEDS: PIPERACILLN/TAZ 3.375GM/NS50ML 3.375 GM/50 ML BAG IVPB ×2 (05:03→12:06)
[2023-01-27 05:15] VITALS: BP 118/65; PULSE 68; RESP 16; TEMP 36.6; O2SAT 98
[2023-01-27 05:40] LABS: Estimated CRCL calculation 39 ml/min; Estimated Glomerular Filt Rate 34
[2023-01-27 05:58] LABS: Vancomycin Trough 26.9 ug/mL (10.0-20.0)
--- NOTE | 2023-01-27 07:21 | PM.PNORT ---
Progress Note: A&P Assessment and Plan (1) Osteomyelitis of great toe of left foot: Code(s): M86.9 - Osteomyelitis, unspecified Status: Acute Assessment and Plan: Postoperative day 1 left hallux amputation. Patient comfortable. Dressing in place. Plan dressing change tomorrow. Partial weight-bearing with postoperative shoe. Continue IV antibiotics. Subjective Subjective Date/Time Seen: 01/27/23 07:21 Post Op day: 1 Principal diagnosis: LT hallux osteo Interval history: Resting comfortably. No new complaints. Exam Const: General: No in distress Orientation/consciousness: patient oriented x3 HENMT: Head: normal to inspection, normocephalic and atraumatic Eyes: Conjunctivae: conjunctivae normal Sclera: sclerae normal Resp: Effort & Inspection: normal respiratory effort and no audible wheezes Extrem: Other: left foot dressing clean and dry. Objective Data Vital Signs Vital Signs: Vital Signs - 24 hr 01/26/23 08:08 01/26/23 08:20 01/26/23 08:35 Temperature 97.6 F Pulse Rate 74 76 74 Respiratory Rate 14 16 14 Blood Pressure 114/70 115/81 113/74 Pulse Oximetry 100 100 100 Oxygen Delivery Simple Face Mask Simple Face Mask Room Air Oxygen Flow Rate 6 6 01/26/23 08:50 01/26/23 09:00 01/26/23 09:19 Temperature Pulse Rate 76 74 95 Respiratory Rate 14 14 Blood Pressure 113/76 112/74 Pulse Oximetry 95 93 Oxygen Delivery Room Air Room Air Oxygen Flow Rate 01/26/23 12:41 01/26/23 14:20 01/26/23 14:30 Temperature 97.5 F L 97.6 F Pulse Rate 82 75 75 Respiratory Rate 18 17 15 Blood Pressure 119/70 87/62 L 89/64 L Pulse Oximetry 99 100 100 Oxygen Delivery Room Air Simple Face Mask Simple Face Mask Oxygen Flow Rate 10 10 01/26/23 14:45 01/26/23 15:00 01/26/23 15:10 Temperature Pulse Rate 77 78 79 Respiratory Rate 14 16 14 Blood Pressure 95/63 L 102/65 106/77 Pulse Oximetry 99 96 96 Oxygen Delivery Room Air Room Air Room Air Oxygen Flow Rate 01/26/23 15:15 01/26/23 15:22 01/26/23 16:00 Temperature 97.5 F L Pulse Rate 80 77 74 Respiratory Rate 14 16 18 Blood Pressure 114/77 110/71 94/57 L Pulse Oximetry 95 98 98 Oxygen Delivery Room Air Room Air Oxygen Flow Rate 01/26/23 16:30 01/26/23 16:45 01/26/23 17:00 Temperature 97.6 F 97.5 F L 97.5 F L Pulse Rate 78 80 78 Respiratory Rate 16 16 16 Blood Pressure 113/71 104/64 118/75 Pulse Oximetry 94 95 95 Oxygen Delivery Oxygen Flow Rate 01/26/23 20:00 01/26/23 20:13 01/26/23 23:16 Temperature 97.6 F 97.6 F Pulse Rate 91 84 88 Respiratory Rate 14 16 Blood Pressure 101/64 120/63 Pulse Oximetry 93 95 Oxygen Delivery Oxygen Flow Rate 01/27/23 05:15 Temperature 97.8 F Pulse Rate 68 Respiratory Rate 16 Blood Pressure 118/65 Pulse Oximetry 98 Oxygen Delivery Oxygen Flow Rate Intake/Output Intake/Output: Intake & Output 01/24/23 01/25/23 01/26/23 01/27/23 23:59 23:59 23:59 23:59 Intake Total 2980 1780 1340 350 Output Total 0 500 1200 Balance 2980 1780 840 -850 Meds/Results Medications: Active Medications Generic Name Dose Route Start Last Admin Trade Name Freq PRN Reason Stop Dose Admin Acetaminophen 650 mg 01/22/23 13:39 01/26/23 20:16 Acetaminophen 325 Mg Tablet PO 650 mg Q4H PRN Administration Mild Pain (1-3) or Fever Hydrocodone Bitart/Acetaminophen 1 tab 01/26/23 18:43 01/26/23 23:36 Hydrocodone/Acetaminophen (*Crx) 5-325 Mg Tablet PO 1 tab Q4H PRN Administration Pain Rated 4-6 Albuterol 2 puff 01/23/23 00:18 Albuterol Sulfate (*Sp) Aerosol 1 Puff INHALATION Q6HRT PRN Shortness Of Breath Aspirin 81 mg 01/23/23 09:00 01/26/23 09:18 Aspirin 81 Mg Enteric Tablet PO 81 mg DAILY LEAH Administration Atorvastatin Calcium 40 mg 01/23/23 09:00 01/26/23 09:18 Atorvastatin 40 Mg Tablet PO 40 mg DAILY LEAH Administration Carbamazepine 200 mg 01/23/23 00:10
[2023-01-27 08:00] VITALS: BP 107/50; PULSE 85; RESP 18; TEMP 36.6; O2SAT 94
[2023-01-27] MEDS: GLUCOSE ORAL GEL 15 GM OF GLUCSE IN 37.5 GM TUBE PO (08:38)
[2023-01-27] MEDS: FINASTERIDE 5 MG TABLET PO (08:44)
[2023-01-27] MEDS: ASPIRIN 81 MG ENTERIC TABLET PO (08:45)
[2023-01-27] MEDS: ATORVASTATIN 40 MG TABLET PO (08:45)
[2023-01-27] MEDS: lisinopriL 5 MG TABLET PO (08:45)
[2023-01-27] MEDS: FENOFIBRATE 160 MG TABLET PO (08:45)
[2023-01-27 08:46] VITALS: PULSE 72
[2023-01-27] MEDS: TAMSULOSIN HCL 0.4 MG CAPSULE PO (08:46)
[2023-01-27] MEDS: OLANZapine 5 MG TABLET 10 MG PO ×2 (08:46→20:51)
[2023-01-27] MEDS: carvediloL 3.125 MG TABLET PO ×2 (08:46→20:52)
[2023-01-27 09:00] LABS: Glucose Point of Care 75 mg/dl (65-105)
[2023-01-27 09:00] LABS: Glucose Point of Care 62 mg/dl (65-105)
--- NOTE | 2023-01-27 11:10 | PM.IMPN ---
Progress Note: A&P Assessment and Plan (1) Osteomyelitis of great toe of left foot: Code(s): M86.9 - Osteomyelitis, unspecified Status: Acute Assessment and Plan: The patient was started on Zosyn and vancomycin. sp amputation - per ortho (2) ILANA on CPAP: Code(s): G47.33 - Obstructive sleep apnea (adult) (pediatric) Status: Acute Assessment and Plan: Continue with home settings. (3) Peripheral arterial occlusive disease: Code(s): I77.9 - Disorder of arteries and arterioles, unspecified Status: Acute Assessment and Plan: Arterial Dopplers were ordered. (4) BPH (benign prostatic hyperplasia): Code(s): N40.0 - Benign prostatic hyperplasia without lower urinary tract symptoms Status: Acute Assessment and Plan: Continue with home medications. (5) Coronary artery disease: Code(s): I25.10 - Atherosclerotic heart disease of [place] coronary artery without angina pectoris Status: Acute Assessment and Plan: Continue with aspirin Coreg and fenofibrate (6) Hypertension: Code(s): I10 - Essential (primary) hypertension Status: Acute Assessment and Plan: Continue with Coreg (7) Type 2 diabetes mellitus: Qualifiers: Diabetes mellitus assistant terminal manager insulin use: with assistant terminal manager use Diabetes mellitus complication status: with circulatory complication Diabetes mellitus complication detail: with other circulatory complications Qualified Code(s): E11.59 - Type 2 diabetes mellitus with other circulatory complications; Z79.4 - extermination supervisor (current) use of insulin Code(s): E11.9 - Type 2 diabetes mellitus without complications Status: Acute Assessment and Plan: Accu-Cheks AC and HS check A1c. Sliding scale insulin with hypoglycemic protocol. Continue with glargine. Continue Jardiance (8) Chronic obstructive pulmonary disease: Code(s): J44.9 - Chronic obstructive pulmonary disease, unspecified Status: Acute Assessment and Plan: P.r.n. albuterol Subjective Date/time seen: 01/27/23 11:10 Interval history: No new complaints Exam Narrative: General appearance: Well-developed, well-nourished, looks ill Skin: Normal color Head: Normocephalic, nontraumatic Eyes: Clear conjunctiva ENT: Oropharynx normal, ears normal, nose normal Neck: Supple, nontender Chest and respiratory: Airway patent, no respiratory distress, no accessory muscle use Heart: Regular rate/rhythm Abdomen: Soft, nontender, no organomegaly, quiet bowel sounds Vascular: Decreased capillary refill, peripheral pulses, intact Musculoskeletal: Left foot exam showed swelling, erythematous changes around the big toe, complete big toe nail avulsion, 1 x 1 cm deep ulcer with black necrotic tissue. Neurologic: Alert and oriented ?3, LAWN CARETAKER is normal as tested, no gross motor deficit Objective Data Vital Signs Vital Signs: Vital Signs - 24 hr 01/26/23 12:41 01/26/23 14:20 01/26/23 14:30 Temperature 97.5 F L 97.6 F Pulse Rate 82 75 75 Respiratory Rate 18 17 15 Blood Pressure 119/70 87/62 L 89/64 L Pulse Oximetry 99 100 100 Oxygen Delivery Room Air Simple Face Mask Simple Face Mask Oxygen Flow Rate 10 10 01/26/23 14:45 01/26/23 15:00 01/26/23 15:10 Temperature Pulse Rate 77 78 79 Respiratory Rate 14 16 14 Blood Pressure 95/63 L 102/65 106/77 Pulse Oximetry 99 96 96 Oxygen Delivery Room Air Room Air Room Air Oxygen Flow Rate 01/26/23 15:15 01/26/23 15:22 01/26/23 16:00 Temperature 97.5 F L Pulse Rate 80 77 74 Respiratory Rate 14 16 18 Blood Pressure 114/77 110/71 94/57 L Pulse Oximetry 95 98 98 Oxygen De
[2023-01-27 12:01] LABS: Glucose Point of Care 109 mg/dl (65-105)
[2023-01-27] MEDS: VANCOMYCIN 1,250 MG/NS 250 ML 1,250 MG/250 ML BAG 166.67 MG IVPB (12:49)
--- NOTE | 2023-01-27 13:39 | WPDUROPN2 ---
Progress Note: A&P Assessment and Plan (1) Bacteremia: Code(s): R78.81 - Bacteremia Status: Acute (2) Urethral stricture: Code(s): N35.919 - Unspecified urethral stricture, male, unspecified site Status: Acute Assessment and Plan: Dilated to 24fr. yesterday. Leave saldaña in place for 7-10 days then remove in the office. No further follow up needed at this time. (3) Difficult Saldaña catheter placement: Code(s): T83.9XXA - Unspecified complication of genitourinary prosthetic device, implant and graft, initial encounter Status: Acute (4) Retention of urine: Code(s): R33.9 - Retention of urine, unspecified Status: Acute Assessment and Plan: Continue FInasteride and Flomax. Pt. c/o urethral itching, will try Pyridium. (5) BPH (benign prostatic hyperplasia): Code(s): N40.0 - Benign prostatic hyperplasia without lower urinary tract symptoms Status: Acute Subjective Subjective Date/Time Seen: 01/27/23 13:39 Interval history: POD #1 Retrograde Urethrogram, Urethral Dilation to 24fr, cystoscopy, complex saldaña placement. Patient is doing well, urine is clear and draining to gravity. He c/o urethral itching, internally. Review of Systems Cardiovascular: Cardiovascular: Denies chest pain Respiratory: Respiratory: Reports no additional respiratory complaints Gastrointestinal: Gastrointestinal: Denies abdominal pain, Denies nausea and Denies vomiting Genitourinary: Genitourinary: Denies hematuria, Reports genital pain, Reports dysuria, Denies flank pain, Denies scrotal swelling, Denies urinary frequency, Denies urinary hesitancy, Denies urinary incontinence and Denies urinary urgency Exam Const: General: cooperative and comfortable Resp: Effort & Inspection: normal respiratory effort Cardio: Rate: regular rate GI: GI Palp: Yes Soft to palpation and No Tenderness to palpation present (GI) : General: Yes no CVA tenderness Meatus: meatus normal Urinary Catheter: Urinary Catheter: patent and draining and urine clear Objective Data Vital Signs Vital Signs: Vital Signs - 24 hr 01/26/23 14:20 01/26/23 14:30 01/26/23 14:45 Temperature 97.6 F Pulse Rate 75 75 77 Respiratory Rate 17 15 14 Blood Pressure 87/62 L 89/64 L 95/63 L Pulse Oximetry 100 100 99 Oxygen Delivery Simple Face Mask Simple Face Mask Room Air Oxygen Flow Rate 10 10 01/26/23 15:00 01/26/23 15:10 01/26/23 15:15 Temperature Pulse Rate 78 79 80 Respiratory Rate 16 14 14 Blood Pressure 102/65 106/77 114/77 Pulse Oximetry 96 96 95 Oxygen Delivery Room Air Room Air Room Air Oxygen Flow Rate 01/26/23 15:22 01/26/23 16:00 01/26/23 16:30 Temperature 97.5 F L 97.6 F Pulse Rate 77 74 78 Respiratory Rate 16 18 16 Blood Pressure 110/71 94/57 L 113/71 Pulse Oximetry 98 98 94 Oxygen Delivery Room Air Oxygen Flow Rate 01/26/23 16:45 01/26/23 17:00 01/26/23 20:00 Temperature 97.5 F L 97.5 F L 97.6 F Pulse Rate 80 78 91 Respiratory Rate 16 16 14 Blood Pressure 104/64 118/75 101/64 Pulse Oximetry 95 95 93 Oxygen Delivery Oxygen Flow Rate 01/26/23 20:13 01/26/23 23:16 01/27/23 05:15 Temperature 97.6 F 97.8 F Pulse Rate 84 88 68 Respiratory Rate 16 16 Blood Pressure 120/63 118/65 Pulse Oximetry 95 98 Oxygen Delivery Oxygen Flow Rate 01/27/23 08:46 01/27/23 08:00 01/27/23 12:03 Temperature 97.9 F Pulse Rate 72 85 Respiratory Rate 18 Blood Pressure 107/50 L Pulse Oximetry 94 Oxygen Delivery Room Air Oxygen Flow Rate Intake/Output Intake/Output: Intake & Output 01/24/23 01/25/23 01/26/23 01/27/23 23:59 23:59 23:59 23:59 Intake Total 2980 1780 1340 790 Output Total 0 500 1200 Balance 2980 1780 840 -410 Meds/Results Medications: Active Medications Generic Name Dose Route Start Last Admin Trade Name Freq PRN Reason Stop Dose Admin Acetaminophen 650 mg 01/22/23 13:39 01/26/23 20
[2023-01-27 14:09] VITALS: BP 112/62; PULSE 61; RESP 18; TEMP 36.4; O2SAT 95
--- NOTE | 2023-01-27 15:07 | WPDANESPN ---
Anes - Prog Note Post-Op Date/Time: 01/27/23 15:07 Cardiovascular status: normal Respiratory status: normal Airway patency: baseline Mental status: baseline Post-Op hydration status: normal Vital Signs: Last Vital Signs Temp 36.4 C L 01/27/23 14:09 Pulse 61 01/27/23 14:09 Resp 18 01/27/23 14:09 BP 112/62 01/27/23 14:09 Pulse Ox 95 01/27/23 14:09 O2 Del Method Room Air 01/27/23 12:03 O2 Flow Rate 10 01/26/23 14:30 Pain Score (VAS): 08/27 I/O: Intake & Output 01/26/23 01/27/23 01/27/23 23:59 07:59 15:59 Intake Total 420 350 440 Output Total 1200 Balance 420 -850 440 Laboratory Tests 01/23/23 11:12 01/27/23 04:59 01/26/23 01/26/23 01/26/23 15:09 17:00 20:07 Creatinine Estim Creat Clear Calc Estimated GFR POC Capillary Glucose 97 94 128 H Vancomycin Trough 01/27/23 01/27/23 01/27/23 04:59 08:29 08:58 Creatinine 2.00 H Estim Creat Clear Calc 39 Estimated GFR 34 L POC Capillary Glucose 62 L 75 Vancomycin Trough 26.9 H 01/27/23 11:57 Creatinine Estim Creat Clear Calc Estimated GFR POC Capillary Glucose 109 H Vancomycin Trough Post-procedural complaints: none Patient Feedback: Patient satisfied with anesthetic care.
[2023-01-27 16:51] LABS: Glucose Point of Care 80 mg/dl (65-105)
[2023-01-27] MEDS: PHENAZOPYRIDINE HCL 100 MG TABLET 200 MG PO (17:12)
--- NOTE | 2023-01-27 18:16 | PC.NURSE ---
On 01/27/23, the Licence pending nurse, Manuela Patino, provided care and completed [facility] documentation on this patient. I have reviewed the nurse's documentation and agree with the findings.
[2023-01-27 20:39] VITALS: BP 114/72; PULSE 80; RESP 16; TEMP 36.4; O2SAT 98
[2023-01-27 20:52] VITALS: PULSE 76
[2023-01-27] MEDS: DOXYCYCLINE HYCLATE 100 MG TABLET PO (20:52)
[2023-01-27] MEDS: AMOXICILLIN/CLAVULANATE K 875-125 MG TAB 1 TABLET PO (20:52)
[2023-01-27 22:19] LABS: Glucose Point of Care 118 mg/dl (65-105)
[2023-01-28] MEDS: carBAMazepine 200 MG TABLET PO ×3 (05:28→20:46)
--- NOTE | 2023-01-28 07:46 | PM.PNORT ---
Progress Note: A&P Assessment and Plan (1) Osteomyelitis of great toe of left foot: Code(s): M86.9 - Osteomyelitis, unspecified Status: Acute Assessment and Plan: Postoperative day 2 left hallux amputation. Patient comfortable. Dressing changed. Dressing change daily. Partial weight-bearing with postoperative shoe. Continue IV antibiotics. Subjective Subjective Date/Time Seen: 01/28/23 07:46 Post Op day: 2 Principal diagnosis: LT hallux osteo Interval history: Awake, no complaints Exam Const: General: No in distress Orientation/consciousness: patient oriented x3 HENMT: Head: normal to inspection, normocephalic and atraumatic Eyes: Conjunctivae: conjunctivae normal Sclera: sclerae normal Resp: Effort & Inspection: normal respiratory effort and no audible wheezes Extrem: Other: left foot dressing removed. Incision dry. Objective Data Vital Signs Vital Signs: Vital Signs - 24 hr 01/27/23 08:46 01/27/23 08:00 01/27/23 12:03 Temperature 97.9 F Pulse Rate 72 85 Respiratory Rate 18 Blood Pressure 107/50 L Pulse Oximetry 94 Oxygen Delivery Room Air 01/27/23 14:09 01/27/23 20:39 01/27/23 20:52 Temperature 97.5 F L 97.6 F Pulse Rate 61 80 76 Respiratory Rate 18 16 Blood Pressure 112/62 114/72 Pulse Oximetry 95 98 Oxygen Delivery Intake/Output Intake/Output: Intake & Output 01/25/23 01/26/23 01/27/23 01/28/23 23:59 23:59 23:59 23:59 Intake Total 1780 1340 1530 300 Output Total 0 500 2250 1450 Balance 1780 840 -720 -1150 Meds/Results Medications: Active Medications Generic Name Dose Route Start Last Admin Trade Name Freq PRN Reason Stop Dose Admin Acetaminophen 650 mg 01/22/23 13:39 01/26/23 20:16 Acetaminophen 325 Mg Tablet PO 650 mg Q4H PRN Administration Mild Pain (1-3) or Fever Hydrocodone Bitart/Acetaminophen 1 tab 01/26/23 18:43 01/26/23 23:36 Hydrocodone/Acetaminophen (*Crx) 5-325 Mg Tablet PO 1 tab Q4H PRN Administration Pain Rated 4-6 Albuterol 2 puff 01/23/23 00:18 Albuterol Sulfate (*Sp) Aerosol 1 Puff INHALATION Q6HRT PRN Shortness Of Breath Amoxicillin/Clavulanate Potassium 1 tablet 01/27/23 21:00 01/27/23 20:52 Amoxicillin/Clavulanate K 875-125 Mg Tab PO 1 tablet Q12HR LEAH Administration Aspirin 81 mg 01/23/23 09:00 01/27/23 08:45 Aspirin 81 Mg Enteric Tablet PO 81 mg DAILY LEAH Administration Atorvastatin Calcium 40 mg 01/23/23 09:00 01/27/23 08:45 Atorvastatin 40 Mg Tablet PO 40 mg DAILY LEAH Administration Carbamazepine 200 mg 01/23/23 00:10 01/28/23 05:28 Carbamazepine 200 Mg Tablet PO 200 mg Q8HR LEAH Administration Carvedilol 3.125 mg 01/22/23 23:45 01/27/23 20:52 Carvedilol 3.125 Mg Tablet PO 3.125 mg Q12HR LEAH Administration Doxycycline Hyclate 100 mg 01/27/23 21:00 01/27/23 20:52 Doxycycline Hyclate 100 Mg Tablet PO 100 mg Q12HR LEAH Administration Empagliflozin 10 mg 01/23/23 09:00 01/27/23 08:52 Empagliflozin 10 Mg Tablet PO Not Given DAILY [facility] Fenofibrate 160 mg 01/23/23 09:00 01/27/23 08:45 Fenofibrate 160 Mg Tablet PO 160 mg DAILY LEAH Administration Fentanyl Citrate 25 mcg 01/26/23 12:43 Fentanyl Citrate Inj (*Crx) 100 Mcg/2 Ml Vial IV PUSH Q2M PRN Pain Finasteride 5 mg 01/27/23 09:00 01/27/23 08:44 Finasteride 5 Mg Tablet PO 5 mg QAM LEAH Administration Glucagon 1 mg 01/23/23 00:00 Glucagon For Inj 1 Mg Vial IM PRN PRN Hypoglycemia Protocol Glucose 15 gm 01/23/23 00:00 01/27/23 08:38 Glucose Oral Gel 15 Gm Of Glucse In 37.5 Gm Tube PO 15 gm PRN PRN Administration Hypoglycemia Protocol Dextrose 1,000 mls @ 100 mls/hr 01/23/23 00:00 Dextrose 5% 1,000 Ml IVPB PRN PRN Hypoglycemia Protocol Insulin Aspart 2 - 5 units 01/23/23 08:00 01/27/23 17:08 Insulin Aspart (*Bkc) 10
[2023-01-28 08:00] VITALS: PULSE 81; RESP 16; O2SAT 98
[2023-01-28 08:29] LABS: Anion Gap 4 mmol/L (8-16); Blood Urea Nitrogen 15 mg/dL (9-20); Calcium 8.4 mg/dL (8.4-10.2); Carbon Dioxide 22 mmol/L (22-30); Chloride 108 mmol/L (98-107); Estimated CRCL calculation 45 ml/min; Estimated Glomerular Filt Rate 41; Glucose 78 mg/dL (65-110); Potassium 3.8 mmol/L (3.4-5.0); Sodium 134 mmol/L (137-145)
[2023-01-28 08:31] LABS: Glucose Point of Care 78 mg/dl (65-105)
--- NOTE | 2023-01-28 08:44 | PCPTNOTE ---
Attempted to see patient for PT, however patient refused. Patient asleep prior to PT, patient woke up and reported no to therapy and went back to sleep.
[2023-01-28] MEDS: AMOXICILLIN/CLAVULANATE K 875-125 MG TAB 1 TABLET PO ×2 (09:21→20:43)
[2023-01-28] MEDS: ASPIRIN 81 MG ENTERIC TABLET PO (09:21)
[2023-01-28] MEDS: OLANZapine 5 MG TABLET 10 MG PO ×2 (09:21→20:43)
[2023-01-28 09:22] VITALS: PULSE 85
[2023-01-28] MEDS: ATORVASTATIN 40 MG TABLET PO (09:22)
[2023-01-28] MEDS: DOXYCYCLINE HYCLATE 100 MG TABLET PO ×2 (09:22→20:44)
[2023-01-28] MEDS: TAMSULOSIN HCL 0.4 MG CAPSULE PO (09:22)
[2023-01-28] MEDS: EMPAGLIFLOZIN 10 MG TABLET PO (09:22)
[2023-01-28] MEDS: carvediloL 3.125 MG TABLET PO ×2 (09:22→20:43)
[2023-01-28] MEDS: lisinopriL 5 MG TABLET PO (09:22)
[2023-01-28] MEDS: PHENAZOPYRIDINE HCL 100 MG TABLET 200 MG PO ×3 (09:22→16:59)
[2023-01-28] MEDS: FENOFIBRATE 160 MG TABLET PO (09:22)
[2023-01-28] MEDS: FINASTERIDE 5 MG TABLET PO (09:23)
--- NOTE | 2023-01-28 09:51 | PCNWS ---
Weekly nutritional screen. Patient is tolerating current diet with adequate intake. No weight loss reported. No nutritional needs at this time.
[2023-01-28 12:16] LABS: Glucose Point of Care 94 mg/dl (65-105)
--- NOTE | 2023-01-28 13:17 | PM.IMPN ---
Progress Note: A&P Assessment and Plan (1) Osteomyelitis of great toe of left foot: Code(s): M86.9 - Osteomyelitis, unspecified Status: Acute Assessment and Plan: The patient was started on oral antibiotics sp amputation - per ortho (2) ILANA on CPAP: Code(s): G47.33 - Obstructive sleep apnea (adult) (pediatric) Status: Acute Assessment and Plan: Continue with home settings. (3) Peripheral arterial occlusive disease: Code(s): I77.9 - Disorder of arteries and arterioles, unspecified Status: Acute Assessment and Plan: Arterial Dopplers were ordered. (4) BPH (benign prostatic hyperplasia): Code(s): N40.0 - Benign prostatic hyperplasia without lower urinary tract symptoms Status: Acute Assessment and Plan: Continue with home medications. (5) Coronary artery disease: Code(s): I25.10 - Atherosclerotic heart disease of [place] coronary artery without angina pectoris Status: Acute Assessment and Plan: Continue with aspirin Coreg and fenofibrate (6) Hypertension: Code(s): I10 - Essential (primary) hypertension Status: Acute Assessment and Plan: Continue with Coreg (7) Type 2 diabetes mellitus: Qualifiers: Diabetes mellitus medical terminologist insulin use: with senior living use Diabetes mellitus complication status: with circulatory complication Diabetes mellitus complication detail: with other circulatory complications Qualified Code(s): E11.59 - Type 2 diabetes mellitus with other circulatory complications; Z79.4 - nursing home (current) use of insulin Code(s): E11.9 - Type 2 diabetes mellitus without complications Status: Acute Assessment and Plan: Accu-Cheks AC and HS check A1c. Sliding scale insulin with hypoglycemic protocol. Continue with glargine. Continue Jardiance (8) Chronic obstructive pulmonary disease: Code(s): J44.9 - Chronic obstructive pulmonary disease, unspecified Status: Acute Assessment and Plan: P.r.n. albuterol Subjective Date/time seen: 01/28/23 13:17 Interval history: No complaints Exam Narrative: General appearance: Well-developed, well-nourished, looks ill Skin: Normal color Head: Normocephalic, nontraumatic Eyes: Clear conjunctiva ENT: Oropharynx normal, ears normal, nose normal Neck: Supple, nontender Chest and respiratory: Airway patent, no respiratory distress, no accessory muscle use Heart: Regular rate/rhythm Abdomen: Soft, nontender, no organomegaly, quiet bowel sounds Vascular: Decreased capillary refill, peripheral pulses, intact Musculoskeletal: Left foot exam showed swelling, erythematous changes around the big toe, complete big toe nail avulsion, 1 x 1 cm deep ulcer with black necrotic tissue. Neurologic: Alert and oriented ?3, TEA TASTER is normal as tested, no gross motor deficit Objective Data Vital Signs Vital Signs: Vital Signs - 24 hr 01/27/23 14:09 01/27/23 20:39 01/27/23 20:52 Temperature 97.5 F L 97.6 F Pulse Rate 61 80 76 Respiratory Rate 18 16 Blood Pressure 112/62 114/72 Pulse Oximetry 95 98 01/28/23 09:22 Temperature Pulse Rate 85 Respiratory Rate Blood Pressure Pulse Oximetry Intake/Output Intake/Output: Intake & Output 01/25/23 01/26/23 01/27/23 01/28/23 23:59 23:59 23:59 23:59 Intake Total 1780 1340 1530 780 Output Total 0 500 2250 1450 Balance 1780 840 -720 -670 Meds/Results Medications: Active Medications Generic Name Dose Route Start Last Admin Trade Name Hansq PRN Reason Stop Dose Admin Acetaminophen 650 mg 01/22/23 13:39 01/26/23 20:16 Acetaminophen 325 Mg Tablet PO 650 m
[2023-01-28 14:12] VITALS: BP 109/75; PULSE 81; RESP 16; TEMP 36.1; O2SAT 98
[2023-01-28 14:52] LABS: Hematocrit 35.1 % (42.0-52.0); Hemoglobin 11.2 g/dL (14.0-18.0); Mean Corpuscular HGB Conc 31.9 g/dl (32-36); Mean Corpuscular Hemoglobin 30.7 pg (26-34); Mean Corpuscular Volume 96.2 fl (80-100); Mean Platelet Volume 10.2 fl (7.4-10.4); Platelet Count Result 329 k/mm3 (150-375); Red Blood Count 3.65 M/mm3 (4.6-6.20); Red Cell Distribution Width 14.3 % (11.5-14.5); White Blood Count 11.3 K/mm3 (4.5-10.0)
[2023-01-28 16:57] LABS: Glucose Point of Care 94 mg/dl (65-105)
[2023-01-28 20:00] VITALS: PULSE 81; RESP 16; O2SAT 98
[2023-01-28 20:25] LABS: Glucose Point of Care 231 mg/dl (65-105)
[2023-01-28] MEDS: HYDROcodone/acetaminophen (*CRX) 5-325 MG TABLET 1 TAB PO (20:43)
[2023-01-28] MEDS: CALCIUM CARBONATE (TUMS) 500 MG (200 MG ELEMENTAL) PO (20:44)
[2023-01-28] MEDS: INSULIN GLARGINE (*BKC) 100 UNITS/ML 45 UNITS SUB-Q (20:46)
[2023-01-28] MEDS: INSULIN ASPART (*BKC) 100 UNITS/ML SUB-Q (20:47)
[2023-01-28 21:50] VITALS: BP 112/72; PULSE 78; RESP 16; TEMP 36.6; O2SAT 97
[2023-01-29] MEDS: HYDROcodone/acetaminophen (*CRX) 5-325 MG TABLET 1 TAB PO (04:01)
[2023-01-29] MEDS: carBAMazepine 200 MG TABLET PO ×2 (06:52→13:41)
[2023-01-29 07:00] VITALS: BP 104/65; PULSE 69; RESP 16; TEMP 36.4; O2SAT 98
[2023-01-29 08:22] LABS: Glucose Point of Care 81 mg/dl (65-105)
[2023-01-29] MEDS: OLANZapine 5 MG TABLET 10 MG PO (09:22)
[2023-01-29] MEDS: ATORVASTATIN 40 MG TABLET PO (09:22)
[2023-01-29 09:23] VITALS: PULSE 88
[2023-01-29] MEDS: DOXYCYCLINE HYCLATE 100 MG TABLET PO (09:23)
[2023-01-29] MEDS: carvediloL 3.125 MG TABLET PO (09:23)
[2023-01-29] MEDS: EMPAGLIFLOZIN 10 MG TABLET PO (09:23)
[2023-01-29] MEDS: PHENAZOPYRIDINE HCL 100 MG TABLET 200 MG PO ×2 (09:23→13:41)
[2023-01-29] MEDS: FENOFIBRATE 160 MG TABLET PO (09:23)
[2023-01-29] MEDS: AMOXICILLIN/CLAVULANATE K 875-125 MG TAB 1 TABLET PO (09:23)
[2023-01-29] MEDS: ASPIRIN 81 MG ENTERIC TABLET PO (09:24)
[2023-01-29] MEDS: FINASTERIDE 5 MG TABLET PO (09:24)
[2023-01-29] MEDS: lisinopriL 5 MG TABLET PO (09:25)
[2023-01-29] MEDS: TAMSULOSIN HCL 0.4 MG CAPSULE PO (09:25)
[2023-01-29 11:36] LABS: Glucose Point of Care 121 mg/dl (65-105)
--- NOTE | 2023-01-29 13:09 | PM.DS ---
DS: Admitting Diagnosis Discharge Date 1222 Admitting Diagnosis Diabetic foot ulcer DS: Discharge Diagnosis Discharge Diagnosis (1) Osteomyelitis of great toe of left foot: Code(s): M86.9 - Osteomyelitis, unspecified Status: Acute Assessment and Plan: The patient was started on oral antibiotics sp amputation - per ortho (2) ILANA on CPAP: Code(s): G47.33 - Obstructive sleep apnea (adult) (pediatric) Status: Acute Assessment and Plan: Continue with home settings. (3) Peripheral arterial occlusive disease: Code(s): I77.9 - Disorder of arteries and arterioles, unspecified Status: Acute Assessment and Plan: Arterial Dopplers were ordered. (4) BPH (benign prostatic hyperplasia): Code(s): N40.0 - Benign prostatic hyperplasia without lower urinary tract symptoms Status: Acute Assessment and Plan: Continue with home medications. (5) Coronary artery disease: Code(s): I25.10 - Atherosclerotic heart disease of [place] coronary artery without angina pectoris Status: Acute Assessment and Plan: Continue with aspirin Coreg and fenofibrate (6) Hypertension: Code(s): I10 - Essential (primary) hypertension Status: Acute Assessment and Plan: Continue with Coreg (7) Type 2 diabetes mellitus: Qualifiers: Diabetes mellitus long term care phlebotomist insulin use: with long term care phlebotomist use Diabetes mellitus complication status: with circulatory complication Diabetes mellitus complication detail: with other circulatory complications Qualified Code(s): E11.59 - Type 2 diabetes mellitus with other circulatory complications; Z79.4 - long term care phlebotomist (current) use of insulin Code(s): E11.9 - Type 2 diabetes mellitus without complications Status: Acute Assessment and Plan: Accu-Cheks AC and HS check A1c. Sliding scale insulin with hypoglycemic protocol. Continue with glargine. Continue Jardiance (8) Chronic obstructive pulmonary disease: Code(s): J44.9 - Chronic obstructive pulmonary disease, unspecified Status: Acute Assessment and Plan: P.r.n. albuterol DS: Summary Hospital Course Hospital Course: Patient was admitted for diabetic foot ulcer status post amputation. Antibiotics on discharge. Follow-up with orthopedics. Time Spent with Patient Time attestation: Total time spent providing and/or coordinating discharge services: Exam Narrative: General appearance: Well-developed, well-nourished, looks ill Skin: Normal color Head: Normocephalic, nontraumatic Eyes: Clear conjunctiva ENT: Oropharynx normal, ears normal, nose normal Neck: Supple, nontender Chest and respiratory: Airway patent, no respiratory distress, no accessory muscle use Heart: Regular rate/rhythm Abdomen: Soft, nontender, no organomegaly, quiet bowel sounds Vascular: Decreased capillary refill, peripheral pulses, intact Musculoskeletal: Left foot exam showed swelling, erythematous changes around the big toe, complete big toe nail avulsion, 1 x 1 cm deep ulcer with black necrotic tissue. Neurologic: Alert and oriented ?3, ECOMMER[employer] MANAGER is normal as tested, no gross motor deficit DS: Data Data Completed and Pending Pending studies at discharge: Pending at discharge 01/26/23 07:54 Surgical [PTH] Routine Labs on day of discharge: Labs from last 24 hours 01/29/23 01/29/23 01/28/23 11:30 08:20 20:17 WBC RBC Hgb Hct MCV MCH MCHC RDW Plt Count MPV POC Capillary Glucose 121 H 81 231 H 01/28/23 01/28/23 16:54 14:39 WBC 11.3 H RBC 3.65 L Hgb 11.2 L Hct 35.1 L MCV 96.2 MCH 30.7 MCHC
[2023-01-29] MEDS: CALCIUM CARBONATE (TUMS) 500 MG (200 MG ELEMENTAL) PO (14:11)
--- NOTE | 2023-01-29 15:43 | PC.NURSE ---
On 01/29/23, the Licence pending nurse, Manuela Patino, provided care and completed [facility] documentation on this patient. I have reviewed the Licence pending nurse's documentation and agree with the findings.
== END 2023-01-29 14:40 | disposition home or self-care (01) | DRG 314 ==
LOC: ANHED 13:38 → ANH2MED 14:31
PROVIDERS: Nurse Practitioner; Orthopaedic Surgery; Urology; Admitting Provider Family Medicine; Emergency Provider Emergency Medicine; PCP Family Medicine; Visit Provider Chiropractor
PROC: 0Y6Q0Z3 Detachment at Left 1st Toe, Low, Open Approach (ICD-10-PCS; principal; 2023-01-26 07:30)
PROC: 0T7D8ZZ Dilation of Urethra, Via Natural or Artificial Opening Endoscopic (ICD-10-PCS; CPT 52281; principal; 2023-01-26 14:15)
DX: E11.621 Type 2 diabetes mellitus with foot ulcer (principal); G93.41 Metabolic encephalopathy; M86.172 Other acute osteomyelitis, left ankle and foot; L97.524 Non-pressure chronic ulcer of other 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; E11.51 Type 2 diabetes mellitus with diabetic peripheral angiopathy without gangrene; E11.65 Type 2 diabetes mellitus with hyperglycemia; D64.9 Anemia, unspecified; N35.919 Unspecified urethral stricture, male, unspecified site; N40.1 Benign prostatic hyperplasia with lower urinary tract symptoms; R33.8 Other retention of urine; E78.5 Hyperlipidemia, unspecified; G40.909 Epilepsy, unspecified, not intractable, without status epilepticus; G47.33 Obstructive sleep apnea (adult) (pediatric); I10 Essential (primary) hypertension; I25.10 Atherosclerotic heart disease of native coronary artery without angina pectoris; J44.9 Chronic obstructive pulmonary disease, unspecified; K21.9 Gastro-esophageal reflux disease without esophagitis; M89.572 Osteolysis, left ankle and foot; Z79.4 Long term (current) use of insulin; Z86.73 Personal history of transient ischemic attack (TIA), and cerebral infarction without residual deficits; Z95.5 Presence of coronary angioplasty implant and graft; Z95.1 Presence of aortocoronary bypass graft; Z99.89 Dependence on other enabling machines and devices; Z87.891 Personal history of nicotine dependence; Z79.82 Long term (current) use of aspirin
CPT/HCPCS: 36415; 36600; 51610; 73630; 74450; 80048; 80053; 80202; 82565; 82805; 82948; 83036; 83605; 83735; 85025; 85027; 85610; 85730; 86140; 87040; 88305; 88311; 93923; 96360; 97116; 97162; 97165; 97530; 97535; 99285; A9270; C1726; C1769; J1100; J1815; J2250; J2371; J2405; J2543; J2704; J3010; J3370; J7030; J7120; Q9966

== ENCOUNTER 2023-03-09 19:30 | Emergency (ER) | payer BC, SELFPAY ==
[2023-03-09 19:50] VITALS: BP 118/67; PULSE 89; RESP 13; TEMP 36.7; O2SAT 100
--- NOTE | 2023-03-09 22:02 | PC.NURSE ---
Patient came up to triage area with family member and stated that they were leaving.
== END 2023-03-09 22:02 | disposition left against medical advice (07) ==
PROVIDERS: PCP Family Medicine
DX: M79.675 Pain in left toe(s) (principal)
CPT/HCPCS: 99199

== ENCOUNTER 2023-03-10 13:45 | Inpatient (IN) | payer BC, SELFPAY ==
[2023-03-10] VITALS (22 sets, daily range): BP systolic 101–121; BP diastolic 64–80; PULSE 72–81; RESP 17–20; TEMP 36.6–36.8; O2SAT 93–100; BMI 28.7
--- NOTE | ~2023-03-10 | US_ITS ---
US venous doppler LE RT DATE: 03/10/2023 19:58 INDICATION: Diffuse lower leg swelling and erythema. Open lesion at right great toe. TECHNIQUE: Real-time and color flow imaging and Doppler analysis of the veins of the right lower extr emity COMPARISON: None FINDINGS: The right greater saphenous vein is patent. There is spontaneous and phasic flow and normal augmentation and color flow signal and normal compression of the deep veins of the right lower extre mity. IMPRESSION: No evidence of deep venous thrombosis of right lower extremity Reviewed, dictated and finalized at [facility]. Reviewed, dictated and finalized at location [facility].
--- NOTE | ~2023-03-10 | XR_ITS ---
EXAMINATION: XR toe 1st RT min 2V INDICATION: Pain and redness of the first toe TECHNIQUE: Three views of the right first toe are obtained. COMPARISON: None available FINDINGS: Bone alignment is normal. There is no fracture. There is mild osteoarthritis. There is swel ling of soft tissue gas in the distal aspect of the first toe. There is a questionable laceration in the plantar aspect of the tip of the toe. IMPRESSION: 1. Soft tissue gas and swelling and possible laceration in the distal aspect of the first toe without definite osseous abnormality identified. Reviewed, dictated and finalized at location [facility].
[2023-03-10 16:45] LABS: Basophils Absolute Auto 0.1 K/mm3 (0.0-0.1); Basophils Percent Auto 0.6 % (0.2-1.2); Eosinophils Absolute Auto 0.6 K/mm3 (0-0.3); Hemoglobin 9.2 g/dL (14.0-18.0); Immature Granulocyte Absolute 0.06 K/mm3 (0.00-0.031); Immature Granulocyte Percent A 0.5 % (0-0.5); Lymphocytes Absolute Auto 1.62 K/mm3 (0.9-3.2); Lymphocytes Percent Auto 12.9 % (18.3-44.2); Mean Corpuscular HGB Conc 31.7 g/dl (32-36); Mean Corpuscular Hemoglobin 30.2 pg (26-34); Mean Corpuscular Volume 95.1 fl (80-100); Mean Platelet Volume 11.1 fl (7.4-10.4); Monocytes Absolute Auto 1.7 K/mm3 (0.1-0.6); Monocytes Percent Auto 13.5 % (2.6-8.5); Neutrophils Absolute Auto 8.4 K/mm3 (1.3-6.7); Neutrophils Percent Auto 67.5 % (45.5-73.1); Platelet Count Result 361 k/mm3 (150-375); Red Blood Count 3.05 M/mm3 (4.6-6.20); Red Cell Distribution Width 14.6 % (11.5-14.5); White Blood Count 12.5 K/mm3 (4.5-10.0)
[2023-03-10 16:49] LABS: Lactic Acid Reflex 0.9 mmol/L (0.7-2.0)
[2023-03-10 16:59] LABS: Alanine Aminotransferase 28 U/L (6-50); Albumin Level 3.9 g/dL (3.5-5.1); Alkaline Phosphatase 72 U/L (38-126); Anion Gap 11 mmol/L (8-16); Aspartate Amino Transferase 22 U/L (17-59); Bilirubin,Total 0.5 mg/dL (0.2-1.3); Blood Urea Nitrogen 16 mg/dL (9-20); Calcium 8.9 mg/dL (8.4-10.2); Carbon Dioxide 22 mmol/L (22-30); Chloride 104 mmol/L (98-107); Estimated CRCL calculation 63 ml/min; Estimated Glomerular Filt Rate > 60; Glucose 114 mg/dL (65-110); Potassium 3.9 mmol/L (3.4-5.0); Sodium 137 mmol/L (137-145)
[2023-03-10 17:10] LABS: CRP 17.5 mg/dL (<1.0)
[2023-03-10 17:17] LABS: Erythrocyte Sedimentation Rate > 140 mm/hr (0-20)
--- NOTE | 2023-03-10 17:17 | ED.WOUNDLAC ---
HPI - Wound/Laceration General Chief Complaint: Wound/Laceration <Varsha Dewey PA-C - Last Filed: 03/10/23 19:35> Stated Complaint: right great toe infection <Varsha Dewey PA-C - Last Filed: 03/10/23 19:35> Time Seen by Provider: 03/10/23 16:18 <CHASITY Delvalle Last Filed: 03/10/23 19:35> Source: patient and old records reviewed <Varsha Dewey PA-C - Last Filed: 03/10/23 19:35> Mode of arrival: ambulatory <CHASITY Delvalle Last Filed: 03/10/23 19:35> Limitations: no limitations <CHASITY Delvalle Last Filed: 03/10/23 19:35> History of Present Illness HPI narrative: Patient is a 62-year-old male, with past medical history of CVA and DM, presents ED with report of right foot and first toe infection. Patient reports he first noticed his right foot and lower leg to be swollen on Tuesday. He states since then, the swelling has continued to worsen and his leg and foot have become red and warm. He has also noticed some sloughing of the skin to his first toe. He denies any known direct injury to his toe or foot. He has previously seen Dr. Flower last month when he underwent partial amputation of his left first toe for similar symptoms. Patient does not check his blood sugars and is unsure what they have been running. He is unsure what medication he takes for his diabetes. He denies any fever, nausea, vomiting. He does still have sensation to his right foot. Denies significant pain. Patient has documented noncompliance with his records. Previously stated that he only takes his diabetic medications when he remembers. <CHASITY Delvalle Last Filed: 03/10/23 19:35> Related Data Home Medications: Home Medications Medication Instructions Recorded Confirmed aspirin 81 mg tablet,delayed 81 mg PO DAILY 09/05/21 03/10/23 release (Adult Low Dose Aspirin) atorvastatin 40 mg tablet (Lipitor) 40 mg PO DAILY 09/05/21 03/10/23 carvedilol 3.125 mg tablet (Coreg) 3.125 mg PO Q12H 09/05/21 03/10/23 empagliflozin 10 mg tablet 10 mg PO DAILY 09/05/21 03/10/23 (Jardiance) fenofibrate 160 mg tablet 160 mg PO DAILY 09/05/21 03/10/23 lisinopril 5 mg tablet (Zestril) 5 mg PO DAILY 09/05/21 03/10/23 insulin glargine 100 unit/mL (3 45 unit subcut HS 03/11/22 03/10/23 mL) subcutaneous pen (Lantus Solostar U-100 Insulin) olanzapine 20 mg tablet 10 mg PO Q12H 03/11/22 03/10/23 <Varsha Dewey PA-C - Last Filed: 03/10/23 19:35> Allergies/Adverse Reactions: Allergies Allergy/AdvReac Type Severity Reaction Status Date / Time metoclopramide AdvReac Mild Vomiting Verified 03/11/23 13:07 <Varsha Dewey PA-C - Last Filed: 03/10/23 19:35> Review of Systems Review of Systems: CONSTITUTIONAL: Denies fever, chills, or sweats. CARDIOVASCULAR: Denies chest pain. RESPIRATORY: Denies dyspnea. GASTROINTESTINAL: Denies nausea, vomiting. SKIN: See HPI. MUSCULOSKELETAL: See HPI. NEUROLOGIC: Denies headache, numbness, or weakness. <CHASITY Delvalle Last Filed: 03/10/23 19:35> All systems reviewed & are unremarkable except as noted in HPI and below <Varsha Dewey PA-C - Last Filed: 03/10/23 19:35> [facility] Past Medical History Medical History: Medical History Cerebrovascular accident (06/2021) It sounds as though he had an ischemic stroke (symptoms include vertigo and visual changes) with hemorrhagic conversion. Chronic anemia Chronic obstructive pulmonary disease Coronary artery disease Status post bifurcation stents to the LAD and diagonal in 2006, stent to the LAD for in-stent restenoses in 2009, and CABG in April 2021 at [facility]. Diabetic foot ulcer Encounter for postoperative care Gastroesophageal reflux disease Hypertension Kidney stones ILANA on CPAP Peripheral arterial occlusive disease Personal history of noncom
[2023-03-10] MEDS: CEFEPIME 2 GM/NS 50 ML 2 GM/50 ML BAG IVPB (18:34)
[2023-03-10] MEDS: metroNIDAZOLE 500 MG/ISO 100ML 500 MG/100 ML BAG 100 MG IVPB (18:35)
[2023-03-10 18:40] LABS: Hemoglobin A1C 6.7 % (<5.7)
--- NOTE | 2023-03-10 19:10 | PC.NURSE ---
This RN assumed care of patient. This RN took patient report from DEEPIKA Regan.
[2023-03-10 19:27] LABS: INR 1.1; Prothrombin Time 14.8 Seconds (11.1-14.7)
[2023-03-10 19:28] LABS: Partial Thromboplastin Time 47.4 SECONDS (22.3-36.8)
--- NOTE | 2023-03-10 19:49 | PM.IMHP ---
H&P: HPI History of Present Illness Date/Time: 03/10/23 19:49 Chief Complaint: Patient presents to the ED for evaluation for his right 1st toe and foot infection Narrative: Our patient is a very unfortunate 62 years old white male with diabetes and chronic medical issues with a history of noncompliance. He came to the ER for evaluation complaining of right foot and 1st toe infection. He noticed a swelling of the right big toe and the foot on Tuesday, and since then it has continued to worsen. The foot and lower leg has become red and warm. He also noticed some sloughing of his 1st toe. He denies any injury to the foot or toe. He underwent partial amputation of the left 1st toe last month. He has been diagnosed with diabetic foot ulcer and cellulitis, and was started on IV antibiotics. General surgery was consulted who want to keep him NPO for wound debridement or amputation in a.m. Review of Systems Review of Systems: denies any chest pain palpitations fever rigor chills nausea vomiting dizziness loss of consciousness All systems reviewed & are unremarkable except as noted in HPI and below PMFSH Past Medical History Medical History (Updated 03/10/23 @ 21:47 by Alonso Santo MD) Cerebrovascular accident (06/2021) It sounds as though he had an ischemic stroke (symptoms include vertigo and visual changes) with hemorrhagic conversion. Chronic anemia Chronic obstructive pulmonary disease Coronary artery disease Status post bifurcation stents to the LAD and diagonal in 2006, stent to the LAD for in-stent restenoses in 2009, and CABG in April 2021 at [facility]. Diabetic foot ulcer Encounter for postoperative care Gastroesophageal reflux disease Hypertension Kidney stones ILANA on CPAP Peripheral arterial occlusive disease Personal history of noncompliance with medical treatment and regimen Seizure disorder Type 2 diabetes mellitus Surgical History Surgical History History of coronary artery bypass graft (04/2021) Done at [facility]. History of inguinal hernia repair times 2 History of myringoplasty History of percutaneous coronary intervention Bifurcation stents to LAD and diagonal in 2006. Stent to the LAD in 2009. (three stents) Family History Family History Mother Family history of diabetes mellitus in first degree relative Other Diabetes mellitus Hypertension Social History Social History Social History: The patient lives with his and 2 sons in [place]. His sons help him out. 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 He smoked about a pack a day for nearly 45 years and he quit at the time of his bypass in April 2021. He was a heavier drinker in his younger years. No illicit substance use. Surrogate medical decision maker: Shahrzad Qiu, . Code status: Full code. Smoking packs per day: 1.5 Smoking cigarettes per day: 30.0 Years smoked: 30 Smoking pack-years: 45.00 Smoking status: Former smoker Tobacco type: cigarettes Second hand tobacco smoke exposure: Yes Alcohol intake: never Substance use: never Substance use type: does not use Lack of Transportation: No Lack of Food: Never True Current Housing: I Have Housing Concerned About Future Housing: No Difficulty Paying Gas/Electric Bills: No Difficulty Paying for Meds: No Currently Unemployed: No Education: High School Diploma/GED Difficulty w/ Childcare or Family Care: No Spiritual care concerns: No Meds Home Medications and Allergies Home Medications Medication Instructions Recorded Confirmed Type aspirin 81 mg tablet,delayed 81 mg PO DAILY 09/05/21 03/10/23 History release (Adult Low Dose Aspirin) atorvastatin 40 mg tablet (Lipitor) 40 mg PO DAILY 09/05/21 03/10/23 History carvedilol 3
[2023-03-10] MEDS: SODIUM CHLORIDE 0.9% IV 1,000 ML 100 ML IV CONT (22:13)
[2023-03-10 22:25] LABS: Glucose Point of Care 219 mg/dl (65-105)
--- NOTE | 2023-03-10 23:07 | PC.NURSE ---
Pt demanding a shower and when arrived to room went into the shower before allowing staff to admit her.
[2023-03-11] VITALS (16 sets, daily range): BP systolic 96–118; BP diastolic 58–78; PULSE 69–85; RESP 14–20; TEMP 36.1–38.1; O2SAT 93–100
[2023-03-11] MEDS: metroNIDAZOLE 500 MG/ISO 100ML 500 MG/100 ML BAG 100 MG IVPB ×3 (01:55→17:43)
[2023-03-11] MEDS: CEFEPIME 2 GM/NS 50 ML 2 GM/50 ML BAG IVPB ×2 (05:03→17:14)
[2023-03-11 06:06] LABS: Basophils Absolute Auto 0.1 K/mm3 (0.0-0.1); Basophils Percent Auto 0.7 % (0.2-1.2); Eosinophils Absolute Auto 0.6 K/mm3 (0-0.3); Eosinophils Percent Auto 4.6 % (0-4.4); Hematocrit 30.1 % (42.0-52.0); Hemoglobin 9.7 g/dL (14.0-18.0); Immature Granulocyte Absolute 0.05 K/mm3 (0.00-0.031); Immature Granulocyte Percent A 0.4 % (0-0.5); Lymphocytes Absolute Auto 0.94 K/mm3 (0.9-3.2); Lymphocytes Percent Auto 7.6 % (18.3-44.2); Mean Corpuscular HGB Conc 32.2 g/dl (32-36); Mean Corpuscular Hemoglobin 30.2 pg (26-34); Mean Corpuscular Volume 93.8 fl (80-100); Mean Platelet Volume 10.8 fl (7.4-10.4); Monocytes Absolute Auto 1.5 K/mm3 (0.1-0.6); Monocytes Percent Auto 12.4 % (2.6-8.5); Neutrophils Absolute Auto 9.2 K/mm3 (1.3-6.7); Neutrophils Percent Auto 74.3 % (45.5-73.1); Platelet Count Result 367 k/mm3 (150-375); Red Blood Count 3.21 M/mm3 (4.6-6.20); Red Cell Distribution Width 14.4 % (11.5-14.5); White Blood Count 12.4 K/mm3 (4.5-10.0)
[2023-03-11 06:16] LABS: Anion Gap 9 mmol/L (8-16); Blood Urea Nitrogen 14 mg/dL (9-20); Calcium 8.5 mg/dL (8.4-10.2); Carbon Dioxide 22 mmol/L (22-30); Chloride 107 mmol/L (98-107); Estimated CRCL calculation 63 ml/min; Estimated Glomerular Filt Rate > 60; Glucose 103 mg/dL (65-110); Phosphorus 3.9 mg/dL (2.5-4.5); Potassium 4.5 mmol/L (3.4-5.0); Sodium 138 mmol/L (137-145)
--- NOTE | 2023-03-11 07:23 | PCWOUND ---
Received wound consult for right 1st toe. Patient being followed by Dr. Ram who is planning to take patient to surgery for I&D possible amputation of the right 1st toe today 03/11/23. Will not assess patient at this time. Will follow as needed post surgical.
[2023-03-11 08:18] LABS: Glucose Point of Care 99 mg/dl (65-105)
[2023-03-11] MEDS: SODIUM CHLORIDE 0.9% IV 1,000 ML 100 ML IV CONT (09:29)
--- NOTE | 2023-03-11 10:15 | P.PNIM_ITS ---
Progress Note: A&P Assessment and Plan (1) Cellulitis of right lower extremity: Code(s): L03.115 - Cellulitis of right lower limb Status: Acute Assessment and Plan: * Presented to the ED with complaints of right foot and toe infection * Toe xray shows soft tissue and swelling and possible laceration in the distal aspect of the first toe without definite osseous abnormality * Venous doppler: no DVT noted * Continue IV antibiotics vanco, flagyl, cefepime * WBC slightly elevated at 12.5 on admission currently 12.4 * General surgery consulted thank you for your help * Surgical intervention scheduled for this afternoon * Pain medications ordered * PT/OT when appropriate * NPO for now (2) Diabetic ulcer of toe associated with type 2 diabetes mellitus: Qualifiers: Laterality: right Non-pressure ulcer stage: unspecified non-pressure ulcer stage Qualified Code(s): E11.621 - Type 2 diabetes mellitus with foot ulcer; L97.519 - Non-pressure chronic ulcer of other part of right foot with unspecified severity Code(s): E11.621 - Type 2 diabetes mellitus with foot ulcer; L97.509 - Non-pressure chronic ulcer of other part of unspecified foot with unspecified severity Status: Acute Assessment and Plan: * Presented for a foot/toe infection * Glucose is stable at 114 * A1c 6.7 * Continue home Jardiance * ISS * Hypoglycemia protocol * Trend glucose * Adjust therapy as indicated (3) ILANA on CPAP: Code(s): G47.33 - Obstructive sleep apnea (adult) (pediatric) Status: Chronic Assessment and Plan: * Continue CPAP/BiPAP at home settings (4) BPH (benign prostatic hyperplasia): Qualifiers: Lower urinary tract symptom detail: unspecified Lower urinary tract symptom presence: symptoms present Qualified Code(s): N40.1 - Benign prostatic hyperplasia with lower urinary tract symptoms Code(s): N40.0 - Benign prostatic hyperplasia without lower urinary tract symptoms Status: Acute Assessment and Plan: * Recent cystoscopy * Continue home tamsulosin, and finasteride * Trend urine output * Bladder scan PRN if needed (5) Seizure disorder: Code(s): G40.909 - Epilepsy, unspecified, not intractable, without status epilepticus Status: Acute Assessment and Plan: * Continue home carbamazepine * Seizure precautions * stable (6) Hypertension: Qualifiers: Hypertension type: primary hypertension Qualified Code(s): I10 - Essential (primary) hypertension Code(s): I10 - Essential (primary) hypertension Status: Acute Assessment and Plan: * Current BP 113/62 * Continue Home carvedilol, lisinopril * Trend Blood pressure * Adjust therapy as indicated (7) Chronic obstructive pulmonary disease: Qualifiers: COPD type: unspecified COPD Qualified Code(s): J44.9 - Chronic obstructive pulmonary disease, unspecified Code(s): J44.9 - Chronic obstructive pulmonary disease, unspecified Status: Acute Assessment and Plan: * Chronic, not in acute exacerbation * No home medications * Consider neb treatments if problems arise * stable (8) Personal history of noncompliance with medical treatment and regimen: Code(s): Z91.199 - Patient's noncompliance with other medical treatment and regimen due to unspecified reason Sta
--- NOTE | 2023-03-11 10:15 | PM.IMPN ---
Progress Note: A&P Assessment and Plan (1) Cellulitis of right lower extremity: Code(s): L03.115 - Cellulitis of right lower limb Status: Acute Assessment and Plan: Presented to the ED with complaints of right foot and toe infection Toe xray shows soft tissue and swelling and possible laceration in the distal aspect of the first toe without definite osseous abnormality Venous doppler: no DVT noted Continue IV antibiotics vanco, flagyl, cefepime WBC slightly elevated at 12.5 on admission currently 12.4 General surgery consulted thank you for your help Surgical intervention scheduled for this afternoon Pain medications ordered PT/OT when appropriate NPO for now (2) Diabetic ulcer of toe associated with type 2 diabetes mellitus: Qualifiers: Laterality: right Non-pressure ulcer stage: unspecified non-pressure ulcer stage Qualified Code(s): E11.621 - Type 2 diabetes mellitus with foot ulcer; L97.519 - Non-pressure chronic ulcer of other part of right foot with unspecified severity Code(s): E11.621 - Type 2 diabetes mellitus with foot ulcer; L97.509 - Non-pressure chronic ulcer of other part of unspecified foot with unspecified severity Status: Acute Assessment and Plan: Presented for a foot/toe infection Glucose is stable at 114 A1c 6.7 Continue home Jardiance ISS Hypoglycemia protocol Trend glucose Adjust therapy as indicated (3) ILANA on CPAP: Code(s): G47.33 - Obstructive sleep apnea (adult) (pediatric) Status: Chronic Assessment and Plan: Continue CPAP/BiPAP at home settings (4) BPH (benign prostatic hyperplasia): Qualifiers: Lower urinary tract symptom detail: unspecified Lower urinary tract symptom presence: symptoms present Qualified Code(s): N40.1 - Benign prostatic hyperplasia with lower urinary tract symptoms Code(s): N40.0 - Benign prostatic hyperplasia without lower urinary tract symptoms Status: Acute Assessment and Plan: Recent cystoscopy Continue home tamsulosin, and finasteride Trend urine output Bladder scan PRN if needed (5) Seizure disorder: Code(s): G40.909 - Epilepsy, unspecified, not intractable, without status epilepticus Status: Acute Assessment and Plan: Continue home carbamazepine Seizure precautions stable (6) Hypertension: Qualifiers: Hypertension type: primary hypertension Qualified Code(s): I10 - Essential (primary) hypertension Code(s): I10 - Essential (primary) hypertension Status: Acute Assessment and Plan: Current BP 113/62 Continue Home carvedilol, lisinopril Trend Blood pressure Adjust therapy as indicated (7) Chronic obstructive pulmonary disease: Qualifiers: COPD type: unspecified COPD Qualified Code(s): J44.9 - Chronic obstructive pulmonary disease, unspecified Code(s): J44.9 - Chronic obstructive pulmonary disease, unspecified Status: Acute Assessment and Plan: Chronic, not in acute exacerbation No home medications Consider neb treatments if problems arise stable (8) Personal history of noncompliance with medical treatment and regimen: Code(s): Z91.199 - Patient's noncompliance with other medical treatment and regimen due to unspecified reason Status: Chronic Assessment and Plan: Education given for greater than 15 minutes (9) Anxiety: Code(s): F41.9 - Anxiety disorder, unspecified Status: Acute Assessment and Plan: Anxious about his procedure Will give a one time dose of Ativan for comfort Time Spent With Patient Time: 53 minutes Time with patient: Greater than 35 minutes Subjective Date/time seen: 03/11/23 1015 Interval history: 03/11/23 1015 Patient was lying in bed. Patient stated that he is very anx
--- NOTE | 2023-03-11 10:22 | PM.CNGS ---
Assessment and Plan Assessment and plan (1) Type 2 diabetes mellitus with right diabetic foot infection: Code(s): E11.628 - Type 2 diabetes mellitus with other skin complications; L08.9 - Local infection of the skin and subcutaneous tissue, unspecified Status: Acute Assessment and Plan: Patient has evidence of a gas-forming infection in the distal right 1st toe. On exam it appears that only the distal portion of the toe is involved. Will proceed to surgery today for debridement. Cultures will be obtained. I explained that the wound will be left open. There is also the possibility of further amputation being necessary depending on his vascular perfusion and extent of the infection. (2) Cellulitis of right lower extremity: Code(s): L03.115 - Cellulitis of right lower limb Status: Acute Assessment and Plan: Should improve with antibiotics and debridement of the toe. (3) Peripheral arterial occlusive disease: Code(s): I77.9 - Disorder of arteries and arterioles, unspecified Status: Chronic Assessment and Plan: No pulses palpable in the right foot. Could be because patient has severe edema but will need segmental Dopplers eventually. (4) Coronary artery disease: Code(s): I25.10 - Atherosclerotic heart disease of [place] coronary artery without angina pectoris Status: Chronic Assessment and Plan: Has had stenting with restenoses and eventually had coronary artery bypass grafting in 2020. (5) Cerebrovascular accident: Onset Date: 06/2021 Code(s): I63.9 - Cerebral infarction, unspecified Status: Chronic Assessment and Plan: Occurred in June 2021 (6) Personal history of noncompliance with medical treatment and regimen: Code(s): Z91.199 - Patient's noncompliance with other medical treatment and regimen due to unspecified reason Status: Chronic Assessment and Plan: Blood sugars surprisingly good considering he does not follow diabetic diet or monitor his blood sugars. (7) ILANA on CPAP: Code(s): G47.33 - Obstructive sleep apnea (adult) (pediatric) Status: Chronic History of Present Illness Consult details Consult date: 03/11/23 Reason for consult: other (Infection right great toe) Requesting physician: Varsha Dewey PA-C Narrative: Patient is a 62-year-old man who came to the emergency room yesterday with a swollen right foot and changes consistent with infection of his right great toe. Plain films of the toe showed subcutaneous gas. He reports that this started about 5 days ago. He had an infection of his left great toe that was managed by Dr. Tirado. This was eventually treated with a distal left toe amputation that was closed primarily. Patient is a diabetic but does not follow was blood sugar nor follow a special diet. He also has a history of previous stroke in 2021, coronary artery disease with stenting and eventual coronary artery bypass grafting in 2020, COPD and obstructive sleep apnea. He does use CPAP. He has been admitted and started on broad-spectrum antibiotics. He is seen now in consultation regarding his diabetic foot infection focused on the right great toe. Plain films of the right great toe did not show evidence of osteomyelitis. Review of Systems Review of Systems: All systems reviewed & are unremarkable except as noted in HPI and below (Per HPI and those items noted below) Constitutional: Constitutional: Denies chills and Denies fever(s) Cardiovascular: Cardiovascular: Denies chest pain, Denies diaphoresis, Denies dyspnea and Denies paroxysmal nocturnal dyspnea Respiratory: Respiratory: Denies chest congestion, Denies cough and Denies dyspnea Integumentary/Breasts: Skin/Breast: Denies lesions and Denies rash [facility] Past Medical History Medical History (Updated 03/11/23 @ 10:43 by Aubrey Ram MD) Cerebrovascular accident (06/2021) It sounds as though he had an isch
--- NOTE | 2023-03-11 10:43 | WPDHPUPDATE1 ---
History and Physical Update Update Date/Time: 03/11/23 10:43 History and Physical has been reviewed, including an updated exam of the patient. There are NO changes in the patient's condition. Risks, benefits, and alternatives have been discussed and questions answered. Patient agrees to proceed with procedure.
[2023-03-11] MEDS: LORazepam INJ (*CRX) 2 MG/ML VIAL 0.5 MG IV PUSH (12:09)
[2023-03-11 12:53] LABS: Glucose Point of Care 83 mg/dl (65-105)
[2023-03-11] MEDS: LACTATED RINGERS 1,000 ML 30 ML IV CONT (13:00)
--- NOTE | 2023-03-11 13:09 | WPDANESEPPF ---
Anes - Initial Pre Proc Eval Procedure: Operation Date: 03/11/23 13:15 Proposed Procedures p Incision and Debridement Right Great Toe, Possible Amputation Right Great Toe(Right) - Aubrey Ram MD Date/Time: 03/11/23 13:09 Surgeon: Alonso Santo MD Pre Op Diagnosis: DIABETIC FOOT ULCER,CELLULITIS RLE Patient Data Age: 62 Gender: M Height: 1.75 m Weight: 88.2 kg Last Vital Signs Temp 38.1 C H 03/11/23 12:39 Pulse 85 03/11/23 12:39 Resp 14 03/11/23 12:39 BP 113/78 03/11/23 12:39 Pulse Ox 98 03/11/23 12:39 O2 Del Method Room Air 03/11/23 12:39 Allergies Allergy/AdvReac Type Severity Reaction Status Date / Time metoclopramide AdvReac Mild Vomiting Verified 03/11/23 13:07 Home Medications Medication Instructions Recorded Confirmed Type aspirin 81 mg tablet,delayed 81 mg PO DAILY 09/05/21 03/10/23 History release (Adult Low Dose Aspirin) atorvastatin 40 mg tablet (Lipitor) 40 mg PO DAILY 09/05/21 03/10/23 History carvedilol 3.125 mg tablet (Coreg) 3.125 mg PO Q12H 09/05/21 03/10/23 History empagliflozin 10 mg tablet 10 mg PO DAILY 09/05/21 03/10/23 History (Jardiance) fenofibrate 160 mg tablet 160 mg PO DAILY 09/05/21 03/10/23 History lisinopril 5 mg tablet (Zestril) 5 mg PO DAILY 09/05/21 03/10/23 History carbamazepine 200 mg tablet 200 mg PO Q8HR #90 tabs 09/07/21 03/10/23 Rx insulin glargine 100 unit/mL (3 45 unit subcut HS 03/11/22 03/10/23 History mL) subcutaneous pen (Lantus Solostar U-100 Insulin) olanzapine 20 mg tablet 10 mg PO Q12H 03/11/22 03/10/23 History finasteride 5 mg tablet (Proscar) 5 mg PO QAM 30 days #30 tabs 01/29/23 03/10/23 Rx tamsulosin 0.4 mg capsule 0.4 mg PO QAM 30 days #30 caps 01/29/23 03/10/23 Rx Laboratory Tests 03/10/23 03/10/23 03/11/23 16:19 22:22 05:21 WBC 12.5 H K/mm3 12.4 H K/mm3 (4.5-10.0) (4.5-10.0) RBC 3.05 L M/mm3 3.21 L M/mm3 (4.6-6.20) (4.6-6.20) Hgb 9.2 L g/dL 9.7 L g/dL (14.0-18.0) (14.0-18.0) Hct 29.0 L % 30.1 L % (42.0-52.0) (42.0-52.0) MCV 95.1 fl 93.8 fl (80-100) (80-100) MCH 30.2 pg 30.2 pg (26-34) (26-34) MCHC 31.7 L g/dl 32.2 g/dl (32-36) (32-36) RDW 14.6 H % 14.4 % (11.5-14.5) (11.5-14.5) Plt Count 361 k/mm3 367 k/mm3 (150-375) (150-375) MPV 11.1 H fl 10.8 H fl (7.4-10.4) (7.4-10.4) Immature Gran % (Auto) 0.5 % 0.4 % (0-0.5) (0-0.5) Neut % (Auto) 67.5 % 74.3 H % (45.5-73.1) (45.5-73.1) Lymph % (Auto) 12.9 L % 7.6 L % (18.3-44.2) (18.3-44.2) Payne % (Auto) 13.5 H % 12.4 H % (2.6-8.5) (2.6-8.5) Eos % (Auto) 5.0 H % 4.6 H % (0-4.4) (0-4.4) Baso % (Auto) 0.6 % 0.7 % (0.2-1.2) (0.2-1.2) Lymph # (Auto) 1.62 K/mm3 0.94 K/mm3 (0.9-3.2) (0.9-3.2) Payne # (Auto) 1.7 H K/mm3 1.5 H K/mm3 (0.1-0.6) (0.1-0.6) Eos # (Auto) 0.6 H K/mm3 0.6 H K/mm3 (0-0.3) (0-0.3) Baso # (Auto) 0.1 K/mm3 0.1 K/mm3 (0.0-0.1) (0.0-0.1) Abs Immat Gran (auto) 0.06 H K/mm3 0.05 H K/mm3 (0.00-0.031) (0.00-0.031) Absolute Neuts (auto) 8.4 H K/mm3 9.2 H K/mm3 (1.3-6.7) (1.3-6.7) Absolute Nucleated RBC 0.0 K/mm3 0.0 K/mm3 (0.0-0.012) (0.0-0.012) Nucleated RBC % 0.0 % 0.0 % (0.0-0.2) (0.0-0.2) ESR > 140 H mm/hr (0-20) PT 14.8 H Seconds (11.1-14.7) INR 1.1 APTT 47.4 H SECONDS (22.3-36.8) Sodium 137 mmol/L 138 mmol/L (137-145) (137-145) Potassium 3.9 mmol/L 4.5 mmol/L (3.4-5.0) (3.4-5.0) Chloride 104 mmol/L 107 mmol/L (98-107) (98-107) Carbon Dioxide 22 mmol/L 22 mmol/L (22-30) (22-30) Anion Gap 11 mmol/L 9 mmol/L (8-16) (8-16) BUN 16 mg/dL 14 mg/dL (9-20) (9-20) Creatinine 1.10 mg/dL 1.10 mg/dL (0.7-1.3) (0.7-1.3) Estim Creat Clear Calc 63 ml/min 63 m
[2023-03-11] MEDS: BUPivacaine HCL 0.5% 10 ML AMP 20 ML INFILTRATE (13:56)
[2023-03-11 15:03] LABS: Glucose Point of Care 108 mg/dl (65-105)
--- NOTE | 2023-03-11 15:14 | W.PM.PROC2 ---
Procedure Note - Detailed Date of Procedure 03/11/23 Pre-op Diagnosis Diabetic foot infection right great toe with abscess and necrosis Post-op Diagnosis Same Procedure Performed Open amputation distal right 1st toe Surgeon Aubrey Ram MD Repulping Supervisor Nawaf panchal [employer]PER[employer] Anesthesia MAC and Local (0.5% Marcaine) Indications Patient presented to the emergency room yesterday with a swollen and foul-smelling right great toe with some purulent drainage. The right foot and ankle were also swollen and warm. Plain films were negative for osteomyelitis. He has probably had some mental status changes associated with this as well. Plain films did show some gas in the soft tissues of the distal toe as well. He is taken to surgery now for debridement and possible amputation of part or all of the right 1st toe. Findings Patient did have a triphasic Doppler signal at the right posterior tibial artery. However there was very little bleeding associated with the dissection so perfusion of the great toe is suspect. He had purulent fluid and necrotic tissue over all of the posterior or plantar great toe. This extended anteriorly leaving only a little bit of skin on each side of the most proximal aspect of the cuticle. Additional debridement showed extensive necrotic change in infection. To eradicate the infection, distal open 1st toe amputation was required. Description of Procedure The patient was taken to surgery and IV sedation was administered. The right foot and great toe were prepped and draped as were the other toes. Local anesthetic was infiltrated to anesthetize the right 1st toe. I then started debriding some of the superficial skin slough. The great toenail was very loose and was easily removed. There was an area at the very into the toe the reach to cross the lateral to medial aspect and was obviously necrotic tissue. There was also necrotic ulcer at the medial but a slightly more proximal area of the toe. I excised this necrotic tissue and all connected. Was more necrotic tissue on posterior in mostly the plantar but also some of them anterior aspect the toe. I had to continued dissecting proximally to try to remove all this tissue. I ran into a couple of purulent collections. I cultured this abscess. I also sent some affected tissue for tissue culture. As I continued debriding, it was obvious that at least the distal phalanx would need to be removed. I used a periosteal elevator and then a bone cutter to remove the distal phalanx. I still had debrided a bit more proximal and then removed the proximal phalanx distal aspect. By this time I was able to remove all the infected tissue and debride skin that had no residual subcutaneous tissue. This resulted in an open amputation that had skin flaps anterior and superior. All of the nail bed had to be removed. I notice there was very little bleeding and we brought a Doppler or into the sterile field. The posterior tibial signal was only monophasic. The ankle had a reasonable posterior tibial biphasic signal. The right posterior tibial artery however had a triphasic brisk a signal indicating good perfusion. I had not had to use any cautery on the wound as there was little or no bleeding. I packed the wound with 1 in iodoform Nu gauze and then dressed over the top with fluffs. The foot was wrapped with Kerlix roll. Patient was awakened and taken to recovery in good condition. Estimated Blood Loss -2 Urine Output 275 Drains No Packing Yes (1 in iodoform Nu Gauze) Pathology Yes (Distal phalanx and distal proximal phalanx right 1st toe, cultures) Complications No immediate complications Condition Stable Disposition PACU [facility] Billing Surgery - Charge Forward: Surgery Billing (Open amputation distal right 1st toe)
[2023-03-11] MEDS: carBAMazepine 200 MG TABLET PO ×2 (15:46→21:32)
[2023-03-11 16:59] LABS: Glucose Point of Care 119 mg/dl (65-105)
[2023-03-11 20:58] LABS: Glucose Point of Care 125 mg/dl (65-105)
[2023-03-11] MEDS: ENOXAPARIN 30 MG/0.3 ML SYRINGE SUB-Q (21:32)
[2023-03-11] MEDS: carvediloL 3.125 MG TABLET PO (21:32)
[2023-03-11] MEDS: OLANZapine 5 MG TABLET 10 MG PO (21:32)
[2023-03-11] MEDS: SENNA/DOCUSATE SODIUM TABLET 2 TAB PO (21:32)
[2023-03-12] MEDS: metroNIDAZOLE 500 MG/ISO 100ML 500 MG/100 ML BAG 100 MG IVPB ×3 (01:51→19:04)
[2023-03-12 03:49] VITALS: BP 125/69; PULSE 73; RESP 20; TEMP 36.6; O2SAT 96
[2023-03-12] MEDS: carBAMazepine 200 MG TABLET PO ×3 (05:16→21:59)
[2023-03-12] MEDS: CEFEPIME 2 GM/NS 50 ML 2 GM/50 ML BAG IVPB ×2 (05:17→17:13)
[2023-03-12] MEDS: SODIUM CHLORIDE 0.9% IV 1,000 ML 100 ML IV CONT (05:22)
[2023-03-12 06:53] LABS: Basophils Absolute Auto 0.1 K/mm3 (0.0-0.1); Basophils Percent Auto 0.4 % (0.2-1.2); Eosinophils Absolute Auto 0.6 K/mm3 (0-0.3); Eosinophils Percent Auto 4.6 % (0-4.4); Hemoglobin 9.4 g/dL (14.0-18.0); Immature Granulocyte Absolute 0.05 K/mm3 (0.00-0.031); Immature Granulocyte Percent A 0.4 % (0-0.5); Lymphocytes Absolute Auto 0.85 K/mm3 (0.9-3.2); Lymphocytes Percent Auto 6.9 % (18.3-44.2); Mean Corpuscular HGB Conc 31.3 g/dl (32-36); Mean Corpuscular Hemoglobin 29.9 pg (26-34); Mean Corpuscular Volume 95.5 fl (80-100); Mean Platelet Volume 10.3 fl (7.4-10.4); Monocytes Absolute Auto 1.4 K/mm3 (0.1-0.6); Monocytes Percent Auto 11.1 % (2.6-8.5); Neutrophils Absolute Auto 9.4 K/mm3 (1.3-6.7); Neutrophils Percent Auto 76.6 % (45.5-73.1); Platelet Count Result 419 k/mm3 (150-375); Red Blood Count 3.14 M/mm3 (4.6-6.20); Red Cell Distribution Width 14.4 % (11.5-14.5); White Blood Count 12.2 K/mm3 (4.5-10.0)
[2023-03-12 07:07] LABS: Anion Gap 7 mmol/L (8-16); Blood Urea Nitrogen 10 mg/dL (9-20); Calcium 8.1 mg/dL (8.4-10.2); Carbon Dioxide 22 mmol/L (22-30); Chloride 106 mmol/L (98-107); Estimated CRCL calculation 84 ml/min; Estimated Glomerular Filt Rate > 60; Glucose 101 mg/dL (65-110); Potassium 4.2 mmol/L (3.4-5.0); Sodium 135 mmol/L (137-145)
[2023-03-12 07:21] LABS: Vancomycin Trough 14.7 ug/mL (10.0-20.0)
[2023-03-12 08:45] VITALS: BP 129/52; PULSE 88; RESP 16; TEMP 37; O2SAT 97
[2023-03-12 08:46] VITALS: PULSE 88
[2023-03-12] MEDS: TAMSULOSIN HCL 0.4 MG CAPSULE PO (08:46)
[2023-03-12] MEDS: carvediloL 3.125 MG TABLET PO ×2 (08:46→21:59)
[2023-03-12] MEDS: OLANZapine 5 MG TABLET 10 MG PO ×2 (08:46→21:59)
[2023-03-12] MEDS: FINASTERIDE 5 MG TABLET PO (08:46)
[2023-03-12] MEDS: lisinopriL 5 MG TABLET PO (08:46)
[2023-03-12] MEDS: FENOFIBRATE 160 MG TABLET PO (08:46)
[2023-03-12] MEDS: EMPAGLIFLOZIN 10 MG TABLET PO (08:46)
[2023-03-12] MEDS: ATORVASTATIN 40 MG TABLET PO (08:46)
[2023-03-12] MEDS: ENOXAPARIN 30 MG/0.3 ML SYRINGE SUB-Q ×2 (08:47→21:59)
[2023-03-12 08:58] LABS: Glucose Point of Care 101 mg/dl (65-105)
--- NOTE | 2023-03-12 10:41 | P.PNIM_ITS ---
Progress Note: A&P Assessment and Plan (1) Cellulitis of right lower extremity: Code(s): L03.115 - Cellulitis of right lower limb Status: Acute Assessment and Plan: * Presented to the ED with complaints of right foot and toe infection * Toe xray shows soft tissue and swelling and possible laceration in the distal aspect of the first toe without definite osseous abnormality * Venous doppler: no DVT noted * Continue IV antibiotics vanco, flagyl, cefepime * WBC slightly elevated at 12.5 on admission currently 12.4 * Will continue with IV antibiotics. 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 (3) ILANA on CPAP: Code(s): G47.33 - Obstructive sleep apnea (adult) (pediatric) Status: Chronic Assessment and Plan: * Continue CPAP/BiPAP at home settings (4) BPH (benign prostatic hyperplasia): Qualifiers: Lower urinary tract symptom presence: symptoms present Lower urinary tract symptom detail: unspecified Qualified Code(s): N40.1 - Benign prostatic hyperplasia with lower urinary tract symptoms Code(s): N40.0 - Benign prostatic hyperplasia without lower urinary tract symptoms Status: Acute Assessment and Plan: * Recent cystoscopy * Continue home tamsulosin, and finasteride * Trend urine output * Bladder scan PRN if needed (5) Seizure disorder: Code(s): G40.909 - Epilepsy, unspecified, not intractable, without status epilepticus Status: Acute Assessment and Plan: * Continue home carbamazepine * Seizure precautions * stable (6) Hypertension: Qualifiers: Hypertension type: primary hypertension Qualified Code(s): I10 - Essential (primary) hypertension Code(s): I10 - Essential (primary) hypertension Status: Acute Assessment and Plan: * Current BP 113/62 * Continue Home carvedilol, lisinopril * Trend Blood pressure * Adjust therapy as indicated (7) Chronic obstructive pulmonary disease: Qualifiers: COPD type: unspecified COPD Qualified Code(s): J44.9 - Chronic obstructive pulmonary disease, unspecified Code(s): J44.9 - Chronic obstructive pulmonary disease, unspecified Status: Acute Assessment and Plan: * Chronic, not in acute exacerbation * No home medications * Consider neb treatments if problems arise * stable (8) Personal history of noncompliance with medical treatment and regimen: Code(s): Z91.199 - Patient's noncompliance with other medical treatment and regimen due to unspecified reason Status: Chronic Assessment and Plan: * Education given for greater than 15 minutes (9) Anxiety: Code(s):
--- NOTE | 2023-03-12 10:41 | PM.IMPN ---
Progress Note: A&P Assessment and Plan (1) Cellulitis of right lower extremity: Code(s): L03.115 - Cellulitis of right lower limb Status: Acute Assessment and Plan: Presented to the ED with complaints of right foot and toe infection Toe xray shows soft tissue and swelling and possible laceration in the distal aspect of the first toe without definite osseous abnormality Venous doppler: no DVT noted Continue IV antibiotics vanco, flagyl, cefepime WBC slightly elevated at 12.5 on admission currently 12.4 Will continue with IV antibiotics. 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 (3) ILANA on CPAP: Code(s): G47.33 - Obstructive sleep apnea (adult) (pediatric) Status: Chronic Assessment and Plan: Continue CPAP/BiPAP at home settings (4) BPH (benign prostatic hyperplasia): Qualifiers: Lower urinary tract symptom presence: symptoms present Lower urinary tract symptom detail: unspecified Qualified Code(s): N40.1 - Benign prostatic hyperplasia with lower urinary tract symptoms Code(s): N40.0 - Benign prostatic hyperplasia without lower urinary tract symptoms Status: Acute Assessment and Plan: Recent cystoscopy Continue home tamsulosin, and finasteride Trend urine output Bladder scan PRN if needed (5) Seizure disorder: Code(s): G40.909 - Epilepsy, unspecified, not intractable, without status epilepticus Status: Acute Assessment and Plan: Continue home carbamazepine Seizure precautions stable (6) Hypertension: Qualifiers: Hypertension type: primary hypertension Qualified Code(s): I10 - Essential (primary) hypertension Code(s): I10 - Essential (primary) hypertension Status: Acute Assessment and Plan: Current BP 113/62 Continue Home carvedilol, lisinopril Trend Blood pressure Adjust therapy as indicated (7) Chronic obstructive pulmonary disease: Qualifiers: COPD type: unspecified COPD Qualified Code(s): J44.9 - Chronic obstructive pulmonary disease, unspecified Code(s): J44.9 - Chronic obstructive pulmonary disease, unspecified Status: Acute Assessment and Plan: Chronic, not in acute exacerbation No home medications Consider neb treatments if problems arise stable (8) Personal history of noncompliance with medical treatment and regimen: Code(s): Z91.199 - Patient's noncompliance with other medical treatment and regimen due to unspecified reason Status: Chronic Assessment and Plan: Education given for greater than 15 minutes (9) Anxiety: Code(s): F41.9 - Anxiety disorder, unspecified Status: Acute Assessment and Plan: Stable, continue current treatment. Subjective Date/time seen: 03/12/23 10:41 Interval history: Patient was seen during morning rounds today. Patient pain is under control. No shortness of breath or chest pain. No abdominal pain, nausea, no vomiting. Mood stable. Review of Systems Review of Systems: denies any chest pain palpitations fever rigor chills nausea vomiting dizziness loss of consciousness All systems reviewed & are unremarkable
[2023-03-12 12:28] LABS: Glucose Point of Care 136 mg/dl (65-105)
--- NOTE | 2023-03-12 14:00 | WPDANESPN ---
Anes - Prog Note Post-Op Date/Time: 03/12/23 14:00 Cardiovascular status: normal Respiratory status: normal Airway patency: baseline Mental status: baseline Post-Op hydration status: normal Vital Signs: Last Vital Signs Temp 98.6 F 03/12/23 08:45 Pulse 88 03/12/23 08:46 Resp 16 03/12/23 08:45 BP 129/52 L 03/12/23 08:45 Pulse Ox 97 03/12/23 08:45 O2 Del Method Room Air 03/12/23 08:40 O2 Flow Rate 8 03/11/23 15:00 Pain Score (VAS): 0 I/O: Intake & Output 03/11/23 03/12/23 03/12/23 23:59 07:59 15:59 Intake Total 3858 656 8926 Output Total 900 1650 Balance 1231 -522 -439 Laboratory Tests 03/12/23 06:40 03/12/23 06:40 03/11/23 03/11/23 03/11/23 14:49 16:53 20:55 WBC RBC Hgb Hct MCV MCH MCHC RDW Plt Count MPV Immature Gran % (Auto) Neut % (Auto) Lymph % (Auto) [place] % (Auto) Eos % (Auto) Baso % (Auto) Lymph # (Auto) [place] # (Auto) Eos # (Auto) Baso # (Auto) Abs Immat Gran (auto) Absolute Neuts (auto) Absolute Nucleated RBC Nucleated RBC % Sodium Potassium Chloride Carbon Dioxide Anion Gap BUN Creatinine Estim Creat Clear Calc Estimated GFR Glucose POC Capillary Glucose 108 H 119 H 125 H Calcium Vancomycin Trough 03/12/23 03/12/23 03/12/23 06:40 06:41 08:23 WBC 12.2 H RBC 3.14 L Hgb 9.4 L Hct 30.0 L MCV 95.5 MCH 29.9 MCHC 31.3 L RDW 14.4 Plt Count 419 H MPV 10.3 Immature Gran % (Auto) 0.4 Neut % (Auto) 76.6 H Lymph % (Auto) 6.9 L [place] % (Auto) 11.1 H Eos % (Auto) 4.6 H Baso % (Auto) 0.4 Lymph # (Auto) 0.85 L [place] # (Auto) 1.4 H Eos # (Auto) 0.6 H Baso # (Auto) 0.1 Abs Immat Gran (auto) 0.05 H Absolute Neuts (auto) 9.4 H Absolute Nucleated RBC 0.0 Nucleated RBC % 0.0 Sodium 135 L Potassium 4.2 Chloride 106 Carbon Dioxide 22 Anion Gap 7 L BUN 10 Creatinine 0.80 Estim Creat Clear Calc 84 Estimated GFR > 60 Glucose 101 POC Capillary Glucose 101 Calcium 8.1 L Vancomycin Trough 14.7 03/12/23 12:17 WBC RBC Hgb Hct MCV MCH MCHC RDW Plt Count MPV Immature Gran % (Auto) Neut % (Auto) Lymph % (Auto) [place] % (Auto) Eos % (Auto) Baso % (Auto) Lymph # (Auto) [place] # (Auto) Eos # (Auto) Baso # (Auto) Abs Immat Gran (auto) Absolute Neuts (auto) Absolute Nucleated RBC Nucleated RBC % Sodium Potassium Chloride Carbon Dioxide Anion Gap BUN Creatinine Estim Creat Clear Calc Estimated GFR Glucose POC Capillary Glucose 136 H Calcium Vancomycin Trough Microbiology 03/11/23 14:04 Toe Right Great Wound Culture - Preliminary 03/11/23 14:09 Toe Right Great Anaerobic Culture - Preliminary Post-procedural complaints: none Patient Feedback: Patient satisfied with anesthetic care.
[2023-03-12 15:14] VITALS: BP 130/80; PULSE 78; RESP 18; TEMP 36.9; O2SAT 97
--- NOTE | 2023-03-12 16:26 | PM.PNGS ---
Progress Note: A&P Assessment and Plan (1) Type 2 diabetes mellitus with right diabetic foot infection: Code(s): E11.628 - Type 2 diabetes mellitus with other skin complications; L08.9 - Local infection of the skin and subcutaneous tissue, unspecified Status: Acute Assessment and Plan: Great toe amputation site looks good. No purulence or additional necrotic tissue in the wound. Anterior skin flap may not be viable but will watch. Foot is lot less edematous than yesterday. Gram-negative rods growing in wound culture. Follow for identification and antibiotic sensitivities. Continue broad-spectrum antibiotics for now (2) Peripheral arterial occlusive disease: Code(s): I77.9 - Disorder of arteries and arterioles, unspecified Status: Chronic Assessment and Plan: Has triphasic posterior tibial Doppler signal. Appears to have adequate blood supply by exam today (3) Cellulitis of right lower extremity: Code(s): L03.115 - Cellulitis of right lower limb Status: Acute Assessment and Plan: Improving. Continue antibiotics. Subjective Subjective Date/Time Seen: 03/12/23 16:26 Post Op day: 1 Patient reports: feels better, tolerating a regular diet and afebrile Exam Const: General: cooperative, comfortable, no acute distress, alert and awake Extrem: General: no calf tenderness and no edema Right lower extremity: foot (Amputation wound clean and well vascularized. No purulence.) Details: tenderness, warmth, edema (Less edema of the foot than yesterday) Location: diffusely and other (Anterior flap questionably viable); no crepitus Objective Data Vital Signs Vital Signs: Vital Signs - 24 hr 03/11/23 17:20 03/11/23 19:32 03/11/23 21:32 Temperature 36.4 C L 36.6 C Pulse Rate 75 73 73 Respiratory Rate 18 20 Blood Pressure 102/66 118/58 L Pulse Oximetry 95 97 Oxygen Delivery 03/11/23 21:15 03/11/23 23:47 03/12/23 03:49 Temperature 36.4 C 36.6 C Pulse Rate 69 73 Respiratory Rate 20 20 Blood Pressure 102/60 125/69 Pulse Oximetry 95 96 Oxygen Delivery Room Air 03/12/23 08:45 03/12/23 08:46 03/12/23 08:40 Temperature 37.0 C Pulse Rate 88 88 Respiratory Rate 16 Blood Pressure 129/52 L Pulse Oximetry 97 Oxygen Delivery Room Air 03/12/23 15:14 Temperature 36.9 C Pulse Rate 78 Respiratory Rate 18 Blood Pressure 130/80 Pulse Oximetry 97 Oxygen Delivery Intake/Output Intake/Output: Intake & Output 03/09/23 03/10/23 03/11/23 03/12/23 23:59 23:59 23:59 23:59 Intake Total 150 3390 1920 Output Total 2125 3450 Balance 150 1265 -1530 Meds/Results Medications: Active Medications Generic Name Dose Route Start Last Admin Trade Name Freq PRN Reason Stop Dose Admin Acetaminophen 500 mg 03/11/23 15:25 Acetaminophen 500 Mg Tablet PO Q6H PRN Mild Pain (1-3) or Fever Hydrocodone Bitart/Acetaminophen 1 tab 03/11/23 15:25 Hydrocodone/Acetaminophen (*Crx) 5-325 Mg Tablet PO Q4H PRN Pain Rated 4-6 Al Hydrox/Mg Hydrox/Simethicone 30 ml 03/10/23 21:42 Mag Hydrox/Al Hydrox/Simeth 30 Ml Udc PO QID PRN Dyspepsia Atorvastatin Calcium 40 mg 03/11/23 09:00 03/12/23 08:46 Atorvastatin 40 Mg Tablet PO 40 mg DAILY LEAH Administration Carbamazepine 200 mg 03/10/23 22:00 03/12/23 15:16 Carbamazepine 200 Mg Tablet PO 200 mg Q8HR LEAH Administration Carvedilol 3.125 mg 03/10/23 21:50 03/12/23 08:46 Carvedilol 3.125 Mg Tablet PO 3.125 mg Q12HR LEAH Administration Dextrose 12.5 gm 03/10/23 21:50 Dextrose 50% 25 Gm/50 Ml Syringe IV PUSH PRN PRN Hypoglycemia Protocol Empagliflozin 10 mg 03/11/23 09:00 03/12/23 08:46 Empagliflozin 10 Mg Tablet PO 10 mg DAILY LEAH Administration Enoxaparin Sodium 30 mg 03/11/23 21:00 03/12/23 08:47 Enoxaparin 30 Mg/0.3 Ml Syringe SUB-Q 30 mg Q12HR LEAH Administration Fenofibrate
[2023-03-12 16:42] LABS: Glucose Point of Care 114 mg/dl (65-105)
[2023-03-12 19:47] VITALS: BP 104/65; PULSE 77; RESP 16; TEMP 37.1; O2SAT 94
[2023-03-12 21:07] LABS: Glucose Point of Care 111 mg/dl (65-105)
[2023-03-12 21:59] VITALS: PULSE 77
[2023-03-12] MEDS: SENNA/DOCUSATE SODIUM TABLET 2 TAB PO (21:59)
[2023-03-13] VITALS (8 sets, daily range): BP systolic 94–147; BP diastolic 54–87; PULSE 63–78; RESP 14–20; TEMP 36.1–37.2; O2SAT 94–100
[2023-03-13] MEDS: SODIUM CHLORIDE 0.9% IV 1,000 ML 100 ML IV CONT ×2 (01:40→16:10)
[2023-03-13] MEDS: metroNIDAZOLE 500 MG/ISO 100ML 500 MG/100 ML BAG 100 MG IVPB ×3 (02:02→18:23)
[2023-03-13 05:57] LABS: Basophils Absolute Auto 0.1 K/mm3 (0.0-0.1); Basophils Percent Auto 0.6 % (0.2-1.2); Eosinophils Absolute Auto 0.5 K/mm3 (0-0.3); Eosinophils Percent Auto 5.2 % (0-4.4); Hematocrit 29.1 % (42.0-52.0); Hemoglobin 9.5 g/dL (14.0-18.0); Immature Granulocyte Absolute 0.07 K/mm3 (0.00-0.031); Immature Granulocyte Percent A 0.7 % (0-0.5); Lymphocytes Absolute Auto 1.19 K/mm3 (0.9-3.2); Lymphocytes Percent Auto 11.4 % (18.3-44.2); Mean Corpuscular HGB Conc 32.6 g/dl (32-36); Mean Corpuscular Hemoglobin 30.4 pg (26-34); Mean Corpuscular Volume 93.3 fl (80-100); Mean Platelet Volume 10.6 fl (7.4-10.4); Monocytes Absolute Auto 1.3 K/mm3 (0.1-0.6); Monocytes Percent Auto 12.2 % (2.6-8.5); Neutrophils Absolute Auto 7.3 K/mm3 (1.3-6.7); Neutrophils Percent Auto 69.9 % (45.5-73.1); Platelet Count Result 441 k/mm3 (150-375); Red Blood Count 3.12 M/mm3 (4.6-6.20); White Blood Count 10.4 K/mm3 (4.5-10.0)
[2023-03-13 06:08] LABS: Anion Gap 9 mmol/L (8-16); Blood Urea Nitrogen 10 mg/dL (9-20); Calcium 8.3 mg/dL (8.4-10.2); Carbon Dioxide 21 mmol/L (22-30); Chloride 104 mmol/L (98-107); Estimated CRCL calculation 76 ml/min; Estimated Glomerular Filt Rate > 60; Glucose 125 mg/dL (65-110); Sodium 134 mmol/L (137-145)
[2023-03-13] MEDS: carBAMazepine 200 MG TABLET PO ×3 (06:42→21:45)
[2023-03-13] MEDS: CEFEPIME 2 GM/NS 50 ML 2 GM/50 ML BAG IVPB ×2 (06:42→17:40)
[2023-03-13 08:30] LABS: Glucose Point of Care 105 mg/dl (65-105)
[2023-03-13] MEDS: FENOFIBRATE 160 MG TABLET PO (08:49)
[2023-03-13] MEDS: carvediloL 3.125 MG TABLET PO ×2 (08:49→21:41)
[2023-03-13] MEDS: FINASTERIDE 5 MG TABLET PO (08:49)
[2023-03-13] MEDS: TAMSULOSIN HCL 0.4 MG CAPSULE PO (08:49)
[2023-03-13] MEDS: OLANZapine 5 MG TABLET 10 MG PO ×2 (08:49→21:42)
[2023-03-13] MEDS: EMPAGLIFLOZIN 10 MG TABLET PO (08:49)
[2023-03-13] MEDS: ATORVASTATIN 40 MG TABLET PO (08:49)
[2023-03-13] MEDS: ENOXAPARIN 30 MG/0.3 ML SYRINGE SUB-Q ×2 (08:49→21:42)
[2023-03-13] MEDS: lisinopriL 5 MG TABLET PO (08:54)
--- NOTE | 2023-03-13 11:11 | PM.IMPN ---
Progress Note: A&P Assessment and Plan (1) Cellulitis of right lower extremity: Code(s): L03.115 - Cellulitis of right lower limb Status: Acute Assessment and Plan: Presented to the ED with complaints of right foot and toe infection Toe xray shows soft tissue and swelling and possible laceration in the distal aspect of the first toe without definite osseous abnormality Venous doppler: no DVT noted Continue IV antibiotics vanco, flagyl, cefepime WBC slightly elevated at 12.5 on admission currently 12.4 Will continue with IV antibiotics. 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 (3) ILANA on CPAP: Code(s): G47.33 - Obstructive sleep apnea (adult) (pediatric) Status: Chronic Assessment and Plan: Continue CPAP/BiPAP at home settings (4) BPH (benign prostatic hyperplasia): Qualifiers: Lower urinary tract symptom presence: symptoms present Lower urinary tract symptom detail: unspecified Qualified Code(s): N40.1 - Benign prostatic hyperplasia with lower urinary tract symptoms Code(s): N40.0 - Benign prostatic hyperplasia without lower urinary tract symptoms Status: Acute Assessment and Plan: Recent cystoscopy Continue home tamsulosin, and finasteride (5) Seizure disorder: Code(s): G40.909 - Epilepsy, unspecified, not intractable, without status epilepticus Status: Acute Assessment and Plan: Continue home carbamazepine Seizure precautions stable (6) Hypertension: Qualifiers: Hypertension type: primary hypertension Qualified Code(s): I10 - Essential (primary) hypertension Code(s): I10 - Essential (primary) hypertension Status: Acute Assessment and Plan: Current BP 113/62 Continue Home carvedilol, lisinopril Trend Blood pressure Adjust therapy as indicated (7) Chronic obstructive pulmonary disease: Qualifiers: COPD type: unspecified COPD Qualified Code(s): J44.9 - Chronic obstructive pulmonary disease, unspecified Code(s): J44.9 - Chronic obstructive pulmonary disease, unspecified Status: Acute Assessment and Plan: Chronic, not in acute exacerbation No home medications Consider neb treatments if problems arise stable (8) Personal history of noncompliance with medical treatment and regimen: Code(s): Z91.199 - Patient's noncompliance with other medical treatment and regimen due to unspecified reason Status: Chronic Assessment and Plan: Education given for greater than 15 minutes (9) Anxiety: Code(s): F41.9 - Anxiety disorder, unspecified Status: Acute Assessment and Plan: Stable, continue current treatment. Subjective Date/time seen: 03/13/23 11:11 Interval history: Patient was seen during morning rounds today. No new overnight complaints. Patient pain is under control. No shortness of breath or chest pain. No abdominal pain, nausea, no vomiting. Mood stable. Review of Systems Review of Systems: denies any chest pain palpitations fever rigor chills nausea vomiting dizziness loss of consciousness All systems reviewed & are unremarkable except as noted in
[2023-03-13 12:30] LABS: Glucose Point of Care 175 mg/dl (65-105)
--- NOTE | 2023-03-13 13:22 | PM.PNGS ---
Subjective Subjective Date/Time Seen: 03/13/23 13:22 Post Op day: 2 Patient reports: no new complaints, pain is less and afebrile Exam Extrem: Right lower extremity: foot (1st toe amputation wound clean and granulating) Details: warmth and edema (Improved again from yesterday) Location: diffusely; no crepitus Objective Data Vital Signs Vital Signs: Vital Signs - 24 hr 03/12/23 15:14 03/12/23 19:47 03/12/23 21:59 Temperature 36.9 C 37.1 C Pulse Rate 78 77 77 Respiratory Rate 18 16 Blood Pressure 130/80 104/65 Pulse Oximetry 97 94 Oxygen Delivery 03/13/23 00:03 03/13/23 04:11 03/12/23 21:40 Temperature 37.2 C 36.8 C Pulse Rate 68 73 Respiratory Rate 20 16 Blood Pressure 111/65 123/84 Pulse Oximetry 94 98 Oxygen Delivery Room Air 03/13/23 08:49 03/13/23 08:56 03/13/23 08:00 Temperature 36.3 C L Pulse Rate 73 77 Respiratory Rate 18 Blood Pressure 147/87 H Pulse Oximetry 100 Oxygen Delivery Room Air Intake/Output Intake/Output: Intake & Output 03/10/23 03/11/23 03/12/23 03/13/23 23:59 23:59 23:59 23:59 Intake Total 150 3390 3540 1380 Output Total 2125 4350 1250 Balance 150 1265 -810 130 Meds/Results Medications: Active Medications Generic Name Dose Route Start Last Admin Trade Name Freq PRN Reason Stop Dose Admin Acetaminophen 500 mg 03/11/23 15:25 Acetaminophen 500 Mg Tablet PO Q6H PRN Mild Pain (1-3) or Fever Hydrocodone Bitart/Acetaminophen 1 tab 03/11/23 15:25 Hydrocodone/Acetaminophen (*Crx) 5-325 Mg Tablet PO Q4H PRN Pain Rated 4-6 Al Hydrox/Mg Hydrox/Simethicone 30 ml 03/10/23 21:42 Mag Hydrox/Al Hydrox/Simeth 30 Ml Udc PO QID PRN Dyspepsia Atorvastatin Calcium 40 mg 03/11/23 09:00 03/13/23 08:49 Atorvastatin 40 Mg Tablet PO 40 mg DAILY LEAH Administration Carbamazepine 200 mg 03/10/23 22:00 03/13/23 13:12 Carbamazepine 200 Mg Tablet PO 200 mg Q8HR LEAH Administration Carvedilol 3.125 mg 03/10/23 21:50 03/13/23 08:49 Carvedilol 3.125 Mg Tablet PO 3.125 mg Q12HR LEAH Administration Dextrose 12.5 gm 03/10/23 21:50 Dextrose 50% 25 Gm/50 Ml Syringe IV PUSH PRN PRN Hypoglycemia Protocol Empagliflozin 10 mg 03/11/23 09:00 03/13/23 08:49 Empagliflozin 10 Mg Tablet PO 10 mg DAILY LEAH Administration Enoxaparin Sodium 30 mg 03/11/23 21:00 03/13/23 08:49 Enoxaparin 30 Mg/0.3 Ml Syringe SUB-Q 30 mg Q12HR LEAH Administration Fenofibrate 160 mg 03/11/23 09:00 03/13/23 08:49 Fenofibrate 160 Mg Tablet PO 160 mg DAILY LEAH Administration Finasteride 5 mg 03/11/23 09:00 03/13/23 08:49 Finasteride 5 Mg Tablet PO 5 mg QAM LEAH Administration Glucagon 1 mg 03/10/23 21:50 Glucagon For Inj 1 Mg Vial IM PRN PRN Hypoglycemia Protocol Glucose 15 gm 03/10/23 21:50 Glucose Oral Gel 15 Gm Of Glucse In 37.5 Gm Tube PO PRN PRN Hypoglycemia Protocol Cefepime HCl 2 gm in 50 mls @ 100 mls/hr 03/11/23 06:00 03/13/23 07:12 Maxipime 2 Gm/Ns 50 Ml IVPB Infused Q12H [facility] Infusion Metronidazole 500 mg in 100 mls @ 100 mls/hr 03/11/23 02:00 03/13/23 10:00 Flagyl 500 Mg/Iso Soln 100 Ml IVPB Infused Q8H [facility] Infusion Sodium Chloride 1,000 mls @ 100 mls/hr 03/10/23 21:50 03/13/23 01:40 Normal Saline Iv IV CONT 100 mls/hr .Q10H LEAH Administration Dextrose 1,000 mls @ 100 mls/hr 03/10/23 21:50 Dextrose 5% 1,000 Ml IVPB PRN PRN Hypoglycemia Protocol Vancomycin HCl 1,750 mg in 500 mls @ 250 mls/hr 03/12/23 08:00 03/13/23 05:02 Vancomycin 1,750 Mg/D5w 500 Ml IVPB Infused Q18H [facility] Infusion Insulin Aspart 2 - 5 units 03/11/23 08:00 03/13/23 08:48 Insulin Aspart (*Bk) 100 Units/Ml SUB-Q Not Given TIDWM [facility] Protocol Lisinopril 5 mg 03/11/23 09:00 03/13/23 08:54 Lisinopril 5 Mg Tablet PO 5 mg DAILY [facility] Administrat
[2023-03-13 17:42] LABS: Glucose Point of Care 134 mg/dl (65-105)
[2023-03-13 19:46] LABS: Vancomycin Trough 16.9 ug/mL (10.0-20.0)
[2023-03-14] MEDS: metroNIDAZOLE 500 MG/ISO 100ML 500 MG/100 ML BAG 100 MG IVPB ×2 (02:30→09:35)
[2023-03-14] MEDS: carBAMazepine 200 MG TABLET PO ×3 (05:21→20:48)
[2023-03-14] MEDS: CEFEPIME 2 GM/NS 50 ML 2 GM/50 ML BAG IVPB (05:21)
[2023-03-14] MEDS: SODIUM CHLORIDE 0.9% IV 1,000 ML 100 ML IV CONT ×2 (07:49→20:01)
[2023-03-14 07:58] LABS: Glucose Point of Care 121 mg/dl (65-105)
[2023-03-14 08:00] VITALS: BP 132/72; PULSE 70; RESP 14; TEMP 36.4; O2SAT 99
[2023-03-14 09:24] VITALS: PULSE 65
[2023-03-14] MEDS: FENOFIBRATE 160 MG TABLET PO (09:24)
[2023-03-14] MEDS: lisinopriL 5 MG TABLET PO (09:24)
[2023-03-14] MEDS: carvediloL 3.125 MG TABLET PO ×2 (09:24→20:48)
[2023-03-14] MEDS: OLANZapine 5 MG TABLET 10 MG PO ×2 (09:24→20:47)
[2023-03-14] MEDS: EMPAGLIFLOZIN 10 MG TABLET PO (09:24)
[2023-03-14] MEDS: ENOXAPARIN 30 MG/0.3 ML SYRINGE SUB-Q ×2 (09:26→20:49)
[2023-03-14] MEDS: TAMSULOSIN HCL 0.4 MG CAPSULE PO (09:26)
[2023-03-14] MEDS: ATORVASTATIN 40 MG TABLET PO (09:26)
[2023-03-14] MEDS: FINASTERIDE 5 MG TABLET PO (09:26)
--- NOTE | 2023-03-14 10:30 | PM.PNGS ---
Progress Note: A&P Assessment and Plan (1) Type 2 diabetes mellitus with right diabetic foot infection: Code(s): E11.628 - Type 2 diabetes mellitus with other skin complications; L08.9 - Local infection of the skin and subcutaneous tissue, unspecified Status: Acute Assessment and Plan: S/p right distal great toe amputation and healing well. Wound looks clean today. Wound care nurses were consulted and recommend silver gel dressing changes and packing with dry gauze. No purulent or additional necrotic tissue in the wound. Cellulitis continues to improve. Post-op shoe ordered for ambulation and transfers. Will switch to silver gel dressing changes. Patient plans to have his son help him with daily dressing changes at home, which is who helped him when he had surgery on his left great toe. Okay from a surgical standpoint to discharge the patient when medically stable and transition to oral antibiotics for another 7 days. (2) Peripheral arterial occlusive disease: Code(s): I77.9 - Disorder of arteries and arterioles, unspecified Status: Chronic (3) Cellulitis of right lower extremity: Code(s): L03.115 - Cellulitis of right lower limb Status: Acute Assessment and Plan: Improving. See plan above. Plan I have discussed the patient's case and plan of care with Dr. Ram. Subjective Subjective Date/Time Seen: 03/14/23 10:30 Post Op day: 3 (Open amputation distal right 1st toe) Patient reports: no new complaints and afebrile Interval history: This is a 62-year-old male who presented to the ER with a swollen and foul-smelling right great toe. He was admitted for the toe wound and cellulitis. Plain films were negative for osteomyelitis. He underwent open amputation distal right first toe on 03/11/2023. Chart reviewed. He is now seen this morning. Patient reports ambulating in the room without any issues. Denies any pain in his right foot. Reports the swelling and redness in his right foot has improved significantly since admission. Wound care has evaluated the patient today and recommended silver gel dressing changes and packed with dry gauze. Patient reports his son will be able to help with dressing changes at home daily. His son helps take care of his left foot when he had a great toe amputation in the past. Exam Const: General: comfortable, no acute distress and awake Orientation/consciousness: patient oriented x3 Extrem: Other: Right foot dressing removed. Right great toe amputation healing well with granulating tissue, no purulent drainage or necrotic tissue noted. Unable to palpate DP or PT pulses, but there are mccormick where they have been dopplered. Overall erythema and edema appears to be improving, minimal if any erythema remaining. Objective Data Vital Signs Vital Signs: Vital Signs - 24 hr 03/13/23 15:05 03/13/23 18:38 03/13/23 19:22 Temperature 97.8 F 98.2 F 97.0 F L Pulse Rate 73 78 67 Respiratory Rate 20 14 18 Blood Pressure 111/72 111/68 94/54 L Pulse Oximetry 94 96 97 Oxygen Delivery 03/13/23 21:41 03/13/23 20:00 03/14/23 08:00 Temperature 97.5 F L Pulse Rate 63 70 Respiratory Rate 14 Blood Pressure 132/72 Pulse Oximetry 99 Oxygen Delivery Room Air 03/14/23 09:24 Temperature Pulse Rate 65 Respiratory Rate Blood Pressure Pulse Oximetry Oxygen Delivery Intake/Output Intake/Output: Intake & Output 03/11/23 03/12/23 03/13/23 03/14/23 23:59 23:59 23:59 23:59 Intake Total 3390 3540 3510 1340 Output Total 2125 4350 2750 4530 Balance 1265 -810 760 -3190 Meds/Results Medications: Active Medications Generic Name Dose Route Start Last Admin Trade Name Freq PRN Reason Stop Dose Admin Acetaminophen 500 mg 03/11/23 15:25 Acetaminophen 500 Mg Tablet PO Q6H PRN Mild Pain (1-3) or Fever Hydrocodone Bitart/Acetaminophen 1 tab 03/11/23 15:25 Hydrocodone/Acetaminophen (*Crx) 5-325 Mg
[2023-03-14] MEDS: SILVERGEL (ELTA) 45 ML 1 APPLIC TOPICAL (11:16)
--- NOTE | 2023-03-14 11:41 | PC.NURSE ---
Physical assessment by Student Nurse Rashmi Vizcaino/[facility] reviewed. Agree with same. Any procedures, care or medications that were given by student nurse were completed under direct supervision of this instructor or assigned staff nurse
[2023-03-14 12:05] LABS: Glucose Point of Care 125 mg/dl (65-105)
[2023-03-14 13:38] VITALS: BP 119/68; PULSE 77; RESP 16; TEMP 36.3; O2SAT 97
--- NOTE | 2023-03-14 14:13 | P.PNIM_ITS ---
Progress Note: A&P Assessment and Plan (1) Cellulitis of right lower extremity: Code(s): L03.115 - Cellulitis of right lower limb Status: Acute Assessment and Plan: * Presented to the ED with complaints of right foot and toe infection * Toe xray shows soft tissue and swelling and possible laceration in the distal aspect of the first toe without definite osseous abnormality * Venous doppler: no DVT noted * Continue IV antibiotics vanco, flagyl, cefepime * WBC slightly elevated at 12.5 on admission currently 12.4 * Will continue with IV antibiotics. 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 03/14: Status post open distal phalanx amputation, improving cellulitis, deescalting to Levaquin and Bactrim oral today, pending sensitivities for Myroides (3) ILANA on CPAP: Code(s): G47.33 - Obstructive sleep apnea (adult) (pediatric) Status: Chronic Assessment and Plan: * Continue CPAP/BiPAP at home settings (4) BPH (benign prostatic hyperplasia): Qualifiers: Lower urinary tract symptom presence: symptoms present Lower urinary tract symptom detail: unspecified Qualified Code(s): N40.1 - Benign prostatic hyperplasia with lower urinary tract symptoms Code(s): N40.0 - Benign prostatic hyperplasia without lower urinary tract symptoms Status: Acute Assessment and Plan: * Recent cystoscopy * Continue home tamsulosin, and finasteride (5) Seizure disorder: Code(s): G40.909 - Epilepsy, unspecified, not intractable, without status epilepticus Status: Acute Assessment and Plan: * Continue home carbamazepine * Seizure precautions * stable (6) Hypertension: Qualifiers: Hypertension type: primary hypertension Qualified Code(s): I10 - Essential (primary) hypertension Code(s): I10 - Essential (primary) hypertension Status: Acute Assessment and Plan: Stable, Blood pressure reviewed 03/14 (7) Chronic obstructive pulmonary disease: Qualifiers: COPD type: unspecified COPD Qualified Code(s): J44.9 - Chronic obstructive pulmonary disease, unspecified Code(s): J44.9 - Chronic obstructive pulmonary disease, unspecified Status: Acute Assessment and Plan: * Chronic, not in acute exacerbation * No home medications * Consider neb treatments if problems arise * stable (8) Personal history of noncompliance with medical treatment and regimen: Code(s): Z91.199 - Patient's noncompliance with other medical treatment and regimen due to unspecified reason
--- NOTE | 2023-03-14 14:13 | PM.IMPN ---
Progress Note: A&P Assessment and Plan (1) Cellulitis of right lower extremity: Code(s): L03.115 - Cellulitis of right lower limb Status: Acute Assessment and Plan: Presented to the ED with complaints of right foot and toe infection Toe xray shows soft tissue and swelling and possible laceration in the distal aspect of the first toe without definite osseous abnormality Venous doppler: no DVT noted Continue IV antibiotics vanco, flagyl, cefepime WBC slightly elevated at 12.5 on admission currently 12.4 Will continue with IV antibiotics. 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 03/14: Status post open distal phalanx amputation, improving cellulitis, deescalting to Levaquin and Bactrim oral today, pending sensitivities for Myroides (3) ILANA on CPAP: Code(s): G47.33 - Obstructive sleep apnea (adult) (pediatric) Status: Chronic Assessment and Plan: Continue CPAP/BiPAP at home settings (4) BPH (benign prostatic hyperplasia): Qualifiers: Lower urinary tract symptom presence: symptoms present Lower urinary tract symptom detail: unspecified Qualified Code(s): N40.1 - Benign prostatic hyperplasia with lower urinary tract symptoms Code(s): N40.0 - Benign prostatic hyperplasia without lower urinary tract symptoms Status: Acute Assessment and Plan: Recent cystoscopy Continue home tamsulosin, and finasteride (5) Seizure disorder: Code(s): G40.909 - Epilepsy, unspecified, not intractable, without status epilepticus Status: Acute Assessment and Plan: Continue home carbamazepine Seizure precautions stable (6) Hypertension: Qualifiers: Hypertension type: primary hypertension Qualified Code(s): I10 - Essential (primary) hypertension Code(s): I10 - Essential (primary) hypertension Status: Acute Assessment and Plan: Stable, Blood pressure reviewed 03/14 (7) Chronic obstructive pulmonary disease: Qualifiers: COPD type: unspecified COPD Qualified Code(s): J44.9 - Chronic obstructive pulmonary disease, unspecified Code(s): J44.9 - Chronic obstructive pulmonary disease, unspecified Status: Acute Assessment and Plan: Chronic, not in acute exacerbation No home medications Consider neb treatments if problems arise stable (8) Personal history of noncompliance with medical treatment and regimen: Code(s): Z91.199 - Patient's noncompliance with other medical treatment and regimen due to unspecified reason Status: Chronic Assessment and Plan: Education given for greater than 15 minutes (9) Anxiety: Code(s): F41.9 - Anxiety disorder, unspecified Status: Acute Assessment and Plan: Stable, continue current treatment. Plan OK for discharge per surgery Wound culture is now growing Myroides with sensitivities to come, MRSA, Group G Strep and Psuedomonas aeruginosa Deescalate to oral Levaquin and Bactrim pending Myroides sensitivities Confusion reported by bipin
[2023-03-14] MEDS: levoFLOXacin 750 MG TABLET PO (14:59)
[2023-03-14 17:01] LABS: Glucose Point of Care 112 mg/dl (65-105)
[2023-03-14 19:38] VITALS: BP 113/71; PULSE 75; RESP 18; TEMP 36.7; O2SAT 94
[2023-03-14 20:48] VITALS: PULSE 75
[2023-03-14] MEDS: SENNA/DOCUSATE SODIUM TABLET 2 TAB PO (20:48)
[2023-03-14] MEDS: SULFAMETHOXAZOLE/TRIMETHOPRIM 800/160 MG DS TABLET 1 TAB PO (20:48)
[2023-03-15] MEDS: carBAMazepine 200 MG TABLET PO (06:21)
[2023-03-15 06:22] LABS: Basophils Absolute Auto 0.1 K/mm3 (0.0-0.1); Basophils Percent Auto 0.7 % (0.2-1.2); Eosinophils Absolute Auto 0.6 K/mm3 (0-0.3); Eosinophils Percent Auto 6.7 % (0-4.4); Hematocrit 32.6 % (42.0-52.0); Hemoglobin 10.4 g/dL (14.0-18.0); Immature Granulocyte Absolute 0.09 K/mm3 (0.00-0.031); Immature Granulocyte Percent A 1.1 % (0-0.5); Lymphocytes Absolute Auto 1.37 K/mm3 (0.9-3.2); Lymphocytes Percent Auto 16.3 % (18.3-44.2); Mean Corpuscular HGB Conc 31.9 g/dl (32-36); Mean Corpuscular Hemoglobin 30.2 pg (26-34); Mean Corpuscular Volume 94.8 fl (80-100); Mean Platelet Volume 10.3 fl (7.4-10.4); Monocytes Percent Auto 11.4 % (2.6-8.5); Neutrophils Absolute Auto 5.4 K/mm3 (1.3-6.7); Neutrophils Percent Auto 63.8 % (45.5-73.1); Platelet Count Result 524 k/mm3 (150-375); Red Blood Count 3.44 M/mm3 (4.6-6.20); Red Cell Distribution Width 14.3 % (11.5-14.5); White Blood Count 8.4 K/mm3 (4.5-10.0)
[2023-03-15] MEDS: SODIUM CHLORIDE 0.9% IV 1,000 ML 100 ML IV CONT (06:26)
[2023-03-15 06:28] LABS: Alanine Aminotransferase 27 U/L (6-50); Albumin Level 3.6 g/dL (3.5-5.1); Alkaline Phosphatase 66 U/L (38-126); Anion Gap 10 mmol/L (8-16); Aspartate Amino Transferase 44 U/L (17-59); Bilirubin,Total 0.3 mg/dL (0.2-1.3); Blood Urea Nitrogen 10 mg/dL (9-20); Calcium 8.5 mg/dL (8.4-10.2); Carbon Dioxide 20 mmol/L (22-30); Chloride 106 mmol/L (98-107); Estimated CRCL calculation 84 ml/min; Estimated Glomerular Filt Rate > 60; Glucose 111 mg/dL (65-110); Potassium 4.2 mmol/L (3.4-5.0); Sodium 136 mmol/L (137-145)
[2023-03-15 08:13] LABS: Glucose Point of Care 97 mg/dl (65-105)
[2023-03-15 09:35] VITALS: BP 128/86; PULSE 78; O2SAT 97
[2023-03-15] MEDS: OLANZapine 5 MG TABLET 10 MG PO (09:37)
[2023-03-15] MEDS: lisinopriL 5 MG TABLET PO (09:37)
[2023-03-15] MEDS: SULFAMETHOXAZOLE/TRIMETHOPRIM 800/160 MG DS TABLET 1 TAB PO (09:37)
[2023-03-15] MEDS: SILVERGEL (ELTA) 45 ML 1 APPLIC TOPICAL (09:37)
[2023-03-15 09:38] VITALS: PULSE 78
[2023-03-15] MEDS: EMPAGLIFLOZIN 10 MG TABLET PO (09:38)
[2023-03-15] MEDS: carvediloL 3.125 MG TABLET PO (09:38)
[2023-03-15] MEDS: TAMSULOSIN HCL 0.4 MG CAPSULE PO (09:38)
[2023-03-15] MEDS: FENOFIBRATE 160 MG TABLET PO (09:38)
[2023-03-15] MEDS: FINASTERIDE 5 MG TABLET PO (09:39)
[2023-03-15] MEDS: ATORVASTATIN 40 MG TABLET PO (09:39)
--- NOTE | 2023-03-15 11:17 | PM.PNGS ---
Progress Note: A&P Assessment and Plan (1) Type 2 diabetes mellitus with right diabetic foot infection: Code(s): E11.628 - Type 2 diabetes mellitus with other skin complications; L08.9 - Local infection of the skin and subcutaneous tissue, unspecified Status: Acute Assessment and Plan: S/p right distal great toe amputation and healing well. Cultures growing staph aureus and myroides species. Final sensitivities came back this morning and appears he could be discharged on a fluoroquinolone with sensitivity of both organisms to levofloxacin. Continue silver gel dressing changes, which his son will help with at home. Ambulate with postop shoe. Okay to transition to oral antibiotics and discharge from our standpoint. Follow-up with Dr. Ram in 2 weeks. (2) Peripheral arterial occlusive disease: Code(s): I77.9 - Disorder of arteries and arterioles, unspecified Status: Chronic (3) Cellulitis of right lower extremity: Code(s): L03.115 - Cellulitis of right lower limb Status: Acute Assessment and Plan: Nearly resolved. Plan I have discussed the patient's case and plan of care with Dr. Ram. Subjective Subjective Date/Time Seen: 03/15/23 11:17 Patient reports: no new complaints and afebrile Interval history: Patient seen today. No acute events overnight. He has his postop shoe and is doing well using this. He was kept yesterday due to his wound cultures showing growth of an additional organism and waiting sensitivities. Review of Systems Review of Systems: ROS unchanged Exam Const: General: comfortable Orientation/consciousness: patient oriented x3 Extrem: Other: Right foot dressing removed. Right great toe amputation healing well with granulating tissue, no purulent drainage or necrotic tissue noted. Unable to palpate DP or PT pulses, but there are mccormick where they have been dopplered. Erythema resolved, edema resolving Objective Data Vital Signs Vital Signs: Vital Signs - 24 hr 03/14/23 13:38 03/14/23 19:38 03/14/23 20:48 Temperature 97.4 F L 98.0 F Pulse Rate 77 75 75 Respiratory Rate 16 18 Blood Pressure 119/68 113/71 Pulse Oximetry 97 94 Oxygen Delivery 03/14/23 20:00 03/15/23 09:35 03/15/23 09:38 Temperature Pulse Rate 78 78 Respiratory Rate Blood Pressure 128/86 Pulse Oximetry 97 Oxygen Delivery Room Air Intake/Output Intake/Output: Intake & Output 03/12/23 03/13/23 03/14/23 03/15/23 23:59 23:59 23:59 23:59 Intake Total 3540 3510 4130 1240 Output Total 4350 2759 0836 3400 Balance -810 817 -1370 -2094 Meds/Results Medications: Active Medications Generic Name Dose Route Start Last Admin Trade Name Freq PRN Reason Stop Dose Admin Acetaminophen 500 mg 03/11/23 15:25 Acetaminophen 500 Mg Tablet PO Q6H PRN Mild Pain (1-3) or Fever Hydrocodone Bitart/Acetaminophen 1 tab 03/11/23 15:25 Hydrocodone/Acetaminophen (*Crx) 5-325 Mg Tablet PO Q4H PRN Pain Rated 4-6 Al Hydrox/Mg Hydrox/Simethicone 30 ml 03/10/23 21:42 Mag Hydrox/Al Hydrox/Simeth 30 Ml Udc PO QID PRN Dyspepsia Atorvastatin Calcium 40 mg 03/11/23 09:00 03/15/23 09:39 Atorvastatin 40 Mg Tablet PO 40 mg DAILY LEAH Administration Carbamazepine 200 mg 03/10/23 22:00 03/15/23 06:21 Carbamazepine 200 Mg Tablet PO 200 mg Q8HR LEAH Administration Carvedilol 3.125 mg 03/10/23 21:50 03/15/23 09:38 Carvedilol 3.125 Mg Tablet PO 3.125 mg Q12HR LEAH Administration Dextrose 12.5 gm 03/10/23 21:50 Dextrose 50% 25 Gm/50 Ml Syringe IV PUSH PRN PRN Hypoglycemia Protocol Empagliflozin 10 mg 03/11/23 09:00 03/15/23 09:38 Empagliflozin 10 Mg Tablet PO 10 mg DAILY LEAH Administration Enoxaparin Sodium 30 mg 03/11/23 21:00 03/14/23 20:49 Enoxaparin 30 Mg/0.3 Ml Syringe SUB-Q 30 mg Q12HR LEAH Administration Fenofibrate 160 mg 03/11/23 0
[2023-03-15 11:44] LABS: Glucose Point of Care 103 mg/dl (65-105)
--- NOTE | 2023-03-15 12:09 | PM.DS ---
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: Qualifiers: Laterality: right Non-pressure ulcer stage: unspecified non-pressure ulcer stage Qualified Code(s): E11.621 - Type 2 diabetes mellitus with foot ulcer; L97.519 - Non-pressure chronic ulcer of other part of right foot with unspecified severity Code(s): E11.621 - Type 2 diabetes mellitus with foot ulcer; L97.509 - Non-pressure chronic ulcer of other part of unspecified foot with unspecified severity Status: Acute (3) ILANA on CPAP: Code(s): G47.33 - Obstructive sleep apnea (adult) (pediatric) Status: Chronic (4) BPH (benign prostatic hyperplasia): Qualifiers: Lower urinary tract symptom presence: symptoms present Lower urinary tract symptom detail: unspecified Qualified Code(s): N40.1 - Benign prostatic hyperplasia with lower urinary tract symptoms Code(s): N40.0 - Benign prostatic hyperplasia without lower urinary tract symptoms Status: Acute (5) Seizure disorder: Code(s): G40.909 - Epilepsy, unspecified, not intractable, without status epilepticus Status: Acute (6) Hypertension: Qualifiers: Hypertension type: primary hypertension Qualified Code(s): I10 - Essential (primary) hypertension Code(s): I10 - Essential (primary) hypertension Status: Acute (7) Chronic obstructive pulmonary disease: Qualifiers: COPD type: unspecified COPD Qualified Code(s): J44.9 - Chronic obstructive pulmonary disease, unspecified Code(s): J44.9 - Chronic obstructive pulmonary disease, unspecified Status: Acute (8) Personal history of noncompliance with medical treatment and regimen: Code(s): Z91.199 - Patient's noncompliance with other medical treatment and regimen due to unspecified reason Status: Chronic (9) Anxiety: Code(s): F41.9 - Anxiety disorder, unspecified Status: Acute DS: Summary Hospital Course Reason for hospitalization: patient was admitted for right foot cellulitis and diabetic ulcer on right great toe Hospital Course: Patient was admitted treated with broad-spectrum antibiotics for diabetic foot infection. General surgery was consulted and proceeded with an open partial amputation the distal phalanx of the right great toe. Patient instructed on wound care. Patient Instructed on diabetes care. patient instructed on the importance of medical compliance. He was continued on IV antibiotics pending wound culture. Ultimately culture was positive for MRSA, MSSA, Pseudomonas, Myroides and group G Streptococcus. he was transitioned to Levaquin and Bactrim for oral antibiotics and discharged home with wound care instructions. Patient is to see the surgeon in 2 weeks. Status at Discharge Cognitive/behavioral status at discharge: awake alert seems oriented Functional status at discharge: independent ambulation Overall status at discharge: patient is progressing back to baseline Time Spent with Patient Time attestation: Total time spent providing and/or coordinating discharge services:35 minutes Time spent: Greater than 30 minutes Exam Narrative: General: well-nourished, chronically ill appearing 62-year-old male, seated in bed, comfortable, NARD Neuro: awake, alert and oriented x2-3, speech clear, no focal neuro deficits noted HEENMT: normocephalic, atraumatic, EOMI, sclerae an
[2023-03-15] MEDS: levoFLOXacin 750 MG TABLET PO (12:22)
[2023-03-15] MEDS: ENOXAPARIN 30 MG/0.3 ML SYRINGE SUB-Q (12:22)
--- NOTE | 2023-03-15 13:27 | PC.NURSE ---
On 03/15/23, the student, [Norma Bonds], provided care and completed [facility] documentation on this patient. I have reviewed the student's documentation and agree with the findings.
== END 2023-03-15 13:30 | disposition home or self-care (01) | DRG 314 ==
LOC: ANHED 19:03 → ANH2MED 20:29
PROVIDERS: Surgery; Admitting Provider Family Medicine; Emergency Provider Physician Assistant; PCP Family Medicine; Visit Provider Nurse Practitioner
PROC: 0Y6P0Z3 Detachment at Right 1st Toe, Low, Open Approach (ICD-10-PCS; principal; 2023-03-11 13:15)
DX: E11.628 Type 2 diabetes mellitus with other skin complications (principal); L97.519 Non-pressure chronic ulcer of other part of right foot with unspecified severity; E11.621 Type 2 diabetes mellitus with foot ulcer; F41.9 Anxiety disorder, unspecified; D64.9 Anemia, unspecified; L03.031 Cellulitis of right toe; G40.909 Epilepsy, unspecified, not intractable, without status epilepticus; G47.33 Obstructive sleep apnea (adult) (pediatric); N40.0 Benign prostatic hyperplasia without lower urinary tract symptoms; I10 Essential (primary) hypertension; I25.10 Atherosclerotic heart disease of native coronary artery without angina pectoris; J44.9 Chronic obstructive pulmonary disease, unspecified; I73.9 Peripheral vascular disease, unspecified; K21.9 Gastro-esophageal reflux disease without esophagitis; B96.5 Pseudomonas (aeruginosa) (mallei) (pseudomallei) as the cause of diseases classified elsewhere; B95.4 Other streptococcus as the cause of diseases classified elsewhere; B95.61 Methicillin susceptible Staphylococcus aureus infection as the cause of diseases classified elsewhere; Z91.199 Patient's noncompliance with other medical treatment and regimen due to unspecified reason; Z95.5 Presence of coronary angioplasty implant and graft; Z95.1 Presence of aortocoronary bypass graft; Z79.82 Long term (current) use of aspirin; Z86.73 Personal history of transient ischemic attack (TIA), and cerebral infarction without residual deficits; Z87.891 Personal history of nicotine dependence
CPT/HCPCS: 36415; 73660; 80048; 80053; 80202; 82948; 83036; 83605; 83735; 84100; 85025; 85610; 85652; 85730; 86140; 86850; 86900; 86901; 87070; 87075; 87077; 87147; 87181; 87186; 87205; 88305; 88311; 93971; 96365; 96375; 99285; A9270; J0692; J1170; J1650; J1836; J2060; J2250; J2704; J3010; J3370; J7030; J7120

== ENCOUNTER 2023-06-27 07:12 | Outpatient (RCR) | payer BC, SELFPAY ==
[2023-04-11 08:45] VITALS: BMI 28.7
--- NOTE | 2023-05-16 08:48 | PCWOUND ---
WOCN NOTE patient called and cancelled due to ride issues. notified surgeon and will let patient know of new appointment date and time.
--- NOTE | 2023-05-19 09:20 | PCWOUND ---
WOCN NOTE patient did not show up for appointment
== END 2023-07-10 23:59 | disposition home or self-care (01) ==
LOC: ANHWOC 07:12
PROVIDERS: PCP Family Medicine; Visit Provider Surgery
DX: S98.131D Complete traumatic amputation of one right lesser toe, subsequent encounter (principal); M86.9 Osteomyelitis, unspecified
CPT/HCPCS: 99213; 99214; G0463

== ENCOUNTER 2023-07-20 08:40 | Outpatient (RCR) | payer BC, SELFPAY ==
[2023-07-11 00:02] VITALS: BMI 28.7
--- NOTE | 2023-07-20 10:29 | WPDWOUNDNOTE ---
Wound Care Note Date/Time: 07/20/23 10:29 History: Baldev returns to the wound clinic for another recheck following open amputation distal right 1st toe performed 03/11/2023 and delayed closure with placement 1/2 [place] drain in the office 04/21/2023. Patient states he is feeling well. He denies any pain and is not currently taking any prescribed pain medication. He has been cleaning the wound daily with soap and water. Denies any redness or drainage. Wound approximation: Yes Drainage: None Surrounding tissue appearance: Normal and healthy Dressings: Open to air Assessment and Plan Assessment and plan (1) Open wound of right great toe: Qualifiers: Encounter type: sequela Qualified Code(s): S91.101S - Unspecified open wound of right great toe without damage to nail, sequela Code(s): S91.101A - Unspecified open wound of right great toe without damage to nail, initial encounter Status: Acute Assessment and Plan: Patient returns to the wound clinic for wound recheck following open amputation distal right 1st toe performed 03/11/2023 and delayed closure with placement 1/2 [place] drain in the office 04/21/2023. His right great toe wound has healed and is completely closed. Instructed him to continue to wash with soap and water daily. Follow-up only as needed. (2) History of amputation of right great toe: Code(s): Z89.411 - Acquired absence of right great toe Status: Acute (3) Osteomyelitis of toe of right foot: Code(s): M86.9 - Osteomyelitis, unspecified Status: Acute Exam Narrative: Right 1st toe wound is completely closed with all surrounding skin appearing healthy. No erythema or swelling. Const: General: comfortable and no acute distress Orientation/consciousness: patient oriented x3
== END 2023-09-06 14:07 | disposition home or self-care (01) ==
LOC: ANHWOC 08:40
PROVIDERS: PCP Family Medicine; Visit Provider Surgery
DX: S98.131D Complete traumatic amputation of one right lesser toe, subsequent encounter (principal); M86.9 Osteomyelitis, unspecified
CPT/HCPCS: 99213; G0463

== ENCOUNTER 2023-07-31 16:32 | Emergency (ER) | payer BC, SELFPAY ==
--- NOTE | ~2023-07-31 | XR_ITS ---
Right foot Technique: AP, oblique, and lateral views were obtained. Clinical History: Diabetic ulcer Findings: No acute fracture or dislocation is seen. Patient is status post prior partial limitation t he great toe at the level of the midportion of the proximal phalanx. Joint spaces are preserved witho ut erosive or degenerative change. Soft tissues are unremarkable. Impression: No acute abnormality evident. Prior partial indication of the great toe, as detailed above. Reviewed, dictated and finalized at location M. Y LEVEL ACCOUNT EXECUTIVE Impression: No acute abnormality evident. Prior partial indication of the great toe, as detailed above.
[2023-07-31 16:34] VITALS: BP 130/79; PULSE 81; RESP 18; TEMP 36.4; O2SAT 100
--- NOTE | 2023-07-31 17:32 | ED.GENADULT ---
HPI - General Adult General Chief complaint: Skin/Abscess/Foreign Body Stated complaint: Rt foot pain Time Seen by Provider: 07/31/23 17:10 Source: patient Mode of arrival: ambulatory Limitations: no limitations History of Present Illness HPI narrative: This is a 63-year-old male with PMH of T2 dm, CAD, COPD, PAD who presents to the ED with chief complaint of right heel pain for the past couple of days. Patient is with his family member who is concerned that the foot may be infected. Family states the area around the heel and ankle looks a little more swollen than normal. Patient reports that he saw Dr. Ram earlier this year for right great toe infection and partial amputation. Today he states he just has a sore to the heel that is mildly painful. Patient's son states that the patient almost never takes his boot soft. Denies fevers, chills, nausea, vomiting. States he has felt otherwise fine. Denies any drainage from the wound or redness or swelling. Denies numbness or weakness. Related Data Home Medications Medication Instructions Recorded Confirmed aspirin 81 mg tablet,delayed 81 mg PO DAILY 09/05/21 05/02/23 release (Adult Low Dose Aspirin) atorvastatin 40 mg tablet (Lipitor) 40 mg PO DAILY 09/05/21 05/02/23 carvedilol 3.125 mg tablet (Coreg) 3.125 mg PO Q12H 09/05/21 05/02/23 empagliflozin 10 mg tablet 10 mg PO DAILY 09/05/21 05/02/23 (Jardiance) fenofibrate 160 mg tablet 160 mg PO DAILY 09/05/21 05/02/23 lisinopril 5 mg tablet (Zestril) 5 mg PO DAILY 09/05/21 05/02/23 insulin glargine 100 unit/mL (3 45 unit subcut HS 03/11/22 05/02/23 mL) subcutaneous pen (Lantus Solostar U-100 Insulin) Allergies Allergy/AdvReac Type Severity Reaction Status Date / Time metoclopramide AdvReac Mild Vomiting Verified 05/02/23 10:02 Review of Systems Review of Systems: All systems as dictated in [facility] Past Medical History Medical History Cerebrovascular accident (06/2021) It sounds as though he had an ischemic stroke (symptoms include vertigo and visual changes) with hemorrhagic conversion. Chronic anemia Chronic obstructive pulmonary disease Coronary artery disease Status post bifurcation stents to the LAD and diagonal in 2006, stent to the LAD for in-stent restenoses in 2009, and CABG in April 2021 at [facility]. Diabetic foot ulcer Encounter for postoperative care Gastroesophageal reflux disease Hypertension Kidney stones ILANA on CPAP Osteomyelitis of toe of right foot Peripheral arterial occlusive disease Personal history of noncompliance with medical treatment and regimen Seizure disorder Type 2 diabetes mellitus Surgical History Surgical History History of amputation of right great toe History of coronary artery bypass graft (04/2021) Done at [facility]. History of inguinal hernia repair times 2 History of myringoplasty History of percutaneous coronary intervention Bifurcation stents to LAD and diagonal in 2006. Stent to the LAD in 2009. (three stents) Family History Family History Mother Family history of diabetes mellitus in first degree relative Other Diabetes mellitus Hypertension Social History Social History Social History: The patient lives with his and 2 sons in [place]. His sons help him out. 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 He smoked about a pack a day for nearly 45 years and he quit at the time of his bypass in April 2021. He was a heavier drinker in his younger years. No illicit substance use. Surrogate medical decision maker: Shahrzad Qiu, . Code status: Full code. Smoking packs per day: 1.5 Smoking cigarettes per day: 30.0 Years smoked: 30 Smoking pack-years: 45.00 Smoking status
[2023-07-31 17:45] LABS: Basophils Absolute Auto 0.1 K/mm3 (0.0-0.1); Basophils Percent Auto 0.5 % (0.2-1.2); Eosinophils Absolute Auto 0.5 K/mm3 (0-0.3); Eosinophils Percent Auto 3.6 % (0-4.4); Hematocrit 35.1 % (42.0-52.0); Hemoglobin 11.3 g/dL (14.0-18.0); Immature Granulocyte Absolute 0.05 K/mm3 (0.00-0.031); Immature Granulocyte Percent A 0.4 % (0-0.5); Lymphocytes Absolute Auto 1.48 K/mm3 (0.9-3.2); Lymphocytes Percent Auto 11.3 % (18.3-44.2); Mean Corpuscular HGB Conc 32.2 g/dl (32-36); Mean Corpuscular Hemoglobin 30.5 pg (26-34); Mean Corpuscular Volume 94.9 fl (80-100); Mean Platelet Volume 9.9 fl (7.4-10.4); Monocytes Absolute Auto 1.7 K/mm3 (0.1-0.6); Monocytes Percent Auto 12.8 % (2.6-8.5); Neutrophils Absolute Auto 9.4 K/mm3 (1.3-6.7); Neutrophils Percent Auto 71.4 % (45.5-73.1); Platelet Count Result 319 k/mm3 (150-375); Red Cell Distribution Width 14.3 % (11.5-14.5); White Blood Count 13.2 K/mm3 (4.5-10.0)
[2023-07-31 18:07] LABS: Alanine Aminotransferase 25 U/L (6-50); Albumin Level 4.2 g/dL (3.5-5.1); Alkaline Phosphatase 69 U/L (38-126); Anion Gap 9 mmol/L (8-16); Aspartate Amino Transferase 39 U/L (17-59); Bilirubin,Total 0.4 mg/dL (0.2-1.3); Blood Urea Nitrogen 25 mg/dL (9-20); Calcium 9.1 mg/dL (8.4-10.2); Carbon Dioxide 22 mmol/L (22-30); Chloride 106 mmol/L (98-107); Estimated CRCL calculation 58 ml/min; Estimated Glomerular Filt Rate 56; Glucose 174 mg/dL (65-110); Potassium 4.2 mmol/L (3.4-5.0); Sodium 137 mmol/L (137-145)
== END 2023-07-31 18:50 | disposition home or self-care (01) ==
PROVIDERS: Emergency Provider Physician Assistant; PCP Family Medicine
DX: L89.612 Pressure ulcer of right heel, stage 2 (principal); E11.628 Type 2 diabetes mellitus with other skin complications; I25.10 Atherosclerotic heart disease of native coronary artery without angina pectoris; J44.9 Chronic obstructive pulmonary disease, unspecified; E11.51 Type 2 diabetes mellitus with diabetic peripheral angiopathy without gangrene; I73.9 Peripheral vascular disease, unspecified; G40.909 Epilepsy, unspecified, not intractable, without status epilepticus; G47.33 Obstructive sleep apnea (adult) (pediatric); D64.9 Anemia, unspecified; K21.9 Gastro-esophageal reflux disease without esophagitis; Z95.1 Presence of aortocoronary bypass graft; Z95.5 Presence of coronary angioplasty implant and graft; Z86.73 Personal history of transient ischemic attack (TIA), and cerebral infarction without residual deficits; Z87.442 Personal history of urinary calculi; Z87.891 Personal history of nicotine dependence; Z79.4 Long term (current) use of insulin; Z79.82 Long term (current) use of aspirin; Z89.411 Acquired absence of right great toe
CPT/HCPCS: 36415; 73630; 80053; 85025; 99283

== ENCOUNTER 2023-09-16 22:19 | Inpatient (IN) | payer BC, SELFPAY ==
--- NOTE | ~2023-09-16 | XR_ITS ---
EXAMINATION: XR lumbar puncture diagnostic DATE: 09/22/2023 15:17 INDICATION: Altered mental status. TECHNIQUE: Consent was provided by the family. The skin overlying the L4-L5 level was prepped and nguyễn ped in usual sterile fashion. Subcutaneous 1% lidocaine was used for local anesthesia. A 20 gauge s moreno needle was advanced under fluoroscopic guidance. The needle was removed and the entry site was cleaned and dressed. There were no immediate complications. Fluoroscopy exposure time was 0.1 minute s. The total number of images was 1. FINDINGS: Real-time fluoroscopy demonstrates the needle at the L4-L5 level. The opening pressure was 11 cm water (Normal range is variably defined as 6-20 cm water and up to 25 cm water in obese patient s. Pressure >25 cm water is one of the modified Dandy criteria for idiopathic intracranial hypertensi on). 12 mL of clear, colorless fluid was collected in 4 tubes. IMPRESSION: 1. Successful fluoro-guided lumbar puncture. Reviewed, dictated and finalized at location A.
--- NOTE | ~2023-09-16 | XR_ITS ---
XR fluoroscopy no charge Indication: Urethral dilation TECHNIQUE: Fluoroscopy used during Urethral dilation performed by [Kisha Taylor MD] on 2023. 20 seconds of fluoroscopy with 52 fluoroscopic images captured. FINDINGS: Correlate with procedure note. IMPRESSION: Fluoroscopy used during Urethral dilation. Reviewed, dictated and finalized at location A.
--- NOTE | ~2023-09-16 | CT_ITS ---
EXAMINATION: CT brain wo con DATE: 09/20/2023 18:12 INDICATION: ALTERED MENTAL STATUS . TECHNIQUE: Computed tomography (CT) of the head was performed without intravenous contrast. The mA wa s adjusted according to patient size. Iterative reconstruction technique was employed. The dose-lengt h product was 756.67 mGy-cm. COMPARISON: None. FINDINGS: Moderate motion artifact. No acute intracranial hemorrhage or extra-axial fluid collection. No hydrocephalus, mass, or herniation. No acute ischemic infarct. Unremarkable dural venous sinus attenuation. No acute osseous abnormality. The aerated spaces are clear. Mild atrophy and chronic white matter change. Atherosclerotic intracranial calcification. 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 IMPRESSION: No acute intracranial process. Reviewed, dictated and finalized at location K.
--- NOTE | ~2023-09-16 | XR_ITS ---
XR foot RT min 3V DATE: 09/17/2023 02:13 INDICATION: History of osteomyelitis, amputations TECHNIQUE: 3 views COMPARISON: July 31, 2023 right foot FINDINGS: Prominent posterior tibial artery calcification. There is soft tissue swelling particularly at the dorsum of the forefoot. Moderate plantar calcaneal enthesopathy. There is prominent subcutaneous emphysema at the heel, suggestion of possible soft tissue ulceration of the heel. No fracture, dislocation, periosteal reaction or bone destruction is evident. Status post amputation of the first digit at the shaft of the proximal phalanx. IMPRESSION: Subcutaneous emphysema of the heel suggesting cellulitis, possible inferior heel soft tis richmond ulceration Plantar calcaneal enthesopathy Prominent posterior tibial artery calcifications suggesting diabetes Status post partial amputation of first digit Reviewed, dictated and finalized at location A. IMPRESSION: Subcutaneous emphysema of the heel suggesting cellulitis, possible inferior heel soft tissue ulceration Plantar calcaneal enthesopathy Prominent posterior tibial artery calcifications suggesting diabetes Status post partial amputation of first digit
--- NOTE | ~2023-09-16 | MR_ITS ---
EXAMINATION: MR brain/brain stem wo con DATE: 09/21/2023 15:02 INDICATION: Altered mental status. TECHNIQUE: Magnetic resonance imaging (MRI) of the brain and brainstem was performed without intraven ous contrast. COMPARISON: Head CT 09/20/2023 FINDINGS: There are old infarcts in the cerebellum bilaterally. There is an old infarct in right temp oral occipital region with old blood products. There is no acute ischemic infarct or abnormal mass le otto. There is an old infarct in right thalamus. There are scattered areas of nonspecific increased T 2-weighted signal intensity in the cerebral white matter and westley. There is ex vacuo dilatation of oc cipital horn of right lateral ventricle. The paranasal sinuses are clear. There is are normal. There is a trace left mastoid effusion. IMPRESSION: 1. Old infarcts involving the right temporal occipital region, right thalamus, and bilateral cerebell um. 2. Mild nonspecific cerebral white matter disease and pontine disease, which likely represents chroni c small vessel ischemic disease. Reviewed, dictated and finalized at location A. IMPRESSION: 1. Old infarcts involving the right temporal occipital region, right thalamus, and bilateral cerebellum. 2. Mild nonspecific cerebral white matter disease and pontine disease, which scooter grimm represents chronic small vessel ischemic disease.
--- NOTE | ~2023-09-16 | CT_ITS ---
EXAMINATION: CT brain wo con DATE: 09/23/2023 12:57 INDICATION: Mental status change. TECHNIQUE: Computed tomography (CT) of the head was performed without intravenous contrast. The mA wa s adjusted according to patient size. Iterative reconstruction technique was employed. The dose-lengt h product was 1059.33 mGy-cm. COMPARISON: Head CT 09/20/2023 FINDINGS: There are old infarcts in the cerebellum bilaterally. There is an old infarct involving rig ht temporal occipital region. There is an old infarct in right thalamus. There is an old infarct in t he left basal ganglia. There are scattered areas of low attenuation in the cerebral white matter. The re is no intracranial hemorrhage, acute infarction, or abnormal intracranial mass lesion. There is ex vacuo dilatation of occipital right lateral ventricle. The orbits are normal. There is mild mucosal thickening in the ethmoid sinuses. The mastoid air cells are normal. IMPRESSION: 1. Old infarcts in the brain. 2. Mild nonspecific cerebral white matter disease, which likely represents chronic small vessel ische dilma disease. Reviewed, dictated and finalized at location A. IMPRESSION: 1. Old infarcts in the brain. 2. 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
--- NOTE | ~2023-09-16 | XR_ITS ---
Clinical Indication: Aspiration PA and lateral views of the chest: Comparison: 09/22/2023 Findings: Hazy left basilar airspace disease present. Right lung clear. Cardiomediastinal silhouette is stable, status post CABG. Bones and soft tissues are unremarkable. Impression: Hazy left basilar airspace disease, which could reflect pneumonia. Reviewed, dictated and finalized at location . Impression: Hazy left basilar airspace disease, which could reflect pneumonia.
--- NOTE | ~2023-09-16 | XR_ITS ---
Portable chest x-ray Comparison: 03/18/2022 Clinical History: Shortness of breath Findings: Possible minimal central congestive change. No consolidation or pleural effusion. Cardiom ediastinal silhouette is stable. Bones and soft tissues are unremarkable. Impression: Possible minimal central congestive change. Reviewed, dictated and finalized at location . Impression: Possible minimal central congestive change.
--- NOTE | ~2023-09-16 | CT_ITS ---
EXAMINATION: CT chest abdomen pelvis w con DATE: 09/23/2023 12:59 INDICATION: Change in mental status. Sepsis. TECHNIQUE: Computed tomography (CT) of the chest, abdomen, and pelvis was performed with 100 mL Omnip aque 350 intravenous contrast. Automated exposure control and iterative reconstruction technique were employed. The dose-length product was 1507.17 mGy-cm. COMPARISON: CT chest, abdomen, and pelvis 09/23/2021 FINDINGS: CHEST CT: There is mild emphysema. There is mild atelectasis in the lungs. There are mild airspace opacities in the lower lobes. There are small pleural effusions. Cardiomegaly is noted. There is a large old infa rct in left ventricle. There are coronary artery calcifications. There are changes of coronary bypass grafting. No pericardial effusion. There is a small sliding hiatal hernia. There is mild thoracic sp ondylosis. There is mild chronic anterior wedging of multiple vertebral bodies. ABDOMEN/PELVIS CT: The liver, gallbladder, spleen, and pancreas and normal. There is chronic thickening of the adrenal g lands, likely benign. There are cysts in the kidneys measuring up to 2.7 cm on the left. There is cor tical thinning of left kidney. There is a striated contrast nephrogram on the left. The prostate is m ildly enlarged. There are no dilated loops of bowel. The appendix is normal. Aortic atherosclerosis i s noted. There are no pathologically enlarged lymph nodes. There is no free intraperitoneal fluid. Th ere is mild lumbar spondylosis. IMPRESSION: 1. Mild airspace opacities in the lower lobes, consistent with atelectasis versus pneumonia. 2. Mild emphysema. 3. Small pleural effusions. 4. Small sliding hiatal hernia. 5. Striated contrast nephrogram in left kidney, which may be seen with pyelonephritis or infarcts. Reviewed, dictated and finalized at location A. IMPRESSION: 1. Mild airspace opacities in the lower lobes, consistent with atelectasis vers us pneumonia. 2. Mild emphysema. 3. Small pleural effusions. 4. Small sliding hiatal hernia. 5. Striated contrast nephrogram in left kidney, which may be seen with pyelonep hritis or infarcts.
--- NOTE | ~2023-09-16 | US_ITS ---
EXAMINATION: US venous doppler LE RT DATE: 09/19/2023 15:38 INDICATION: Swallowing, need to rule out DVT . TECHNIQUE: Grayscale images without and with compression and Doppler images of the right lower extrem ity veins were obtained. COMPARISON: None FINDINGS: The right common femoral vein, profunda (deep) femoral vein, femoral vein, popliteal vein, proximal p osterior tibial veins, gastrocnemius vein, and greater saphenous vein are patent. Peroneal and distal posterior tibial veins not visualized due to overlying wound suction and bandage material. IMPRESSION: Peroneal and distal posterior tibial veins not visualized, otherwise patent right lower extremity vei ns, without evidence of deep venous thrombosis. Reviewed, dictated and finalized at location K. IMPRESSION: Peroneal and distal posterior tibial veins not visualized, otherwise patent rig ht lower extremity veins, without evidence of deep venous thrombosis.
--- NOTE | ~2023-09-16 | MR_ITS ---
EXAMINATION: MR brain/brain stem wo con DATE: 10/06/2023 15:03 INDICATION: AMS TECHNIQUE: Magnetic resonance imaging (MRI) of the brain and brainstem was performed without intraven ous contrast. Sequences included sagittal and axial T1-weighted SE, axial diffusion-weighted FS EPI A SSET, axial T2*-weighted GRE, axial T2-weighted FLAIR Propeller, and axial T2-weighted Propeller. Lisbet arent diffusion coefficient (ADC) maps were created. COMPARISON: 09/21/2023, CT brain 09/23/2023. FINDINGS: Multiple sequences are motion limited. No abnormal restricted diffusion to suggest acute ischemic inf arct. Old focal bilateral cerebellar hemisphere infarcts. Right occipital lobe encephalomalacia with associated blood products, likely prior infarct. No MRI evidence of hemorrhage or extra-axial collect ion. Scattered foci of white matter hyperintensity, likely representing mild-moderate small vessel is chemic disease. No evidence of advanced or lobar predominant parenchymal volume loss. The basilar cis terns are patent. Flow voids are preserved. Paranasal sinuses are within normal limits. Globes and or bital contents are within normal limits. IMPRESSION: No acute intracranial process. Reviewed, dictated and finalized at location K.
[2023-09-16 22:26] VITALS: BP 114/68; PULSE 103; RESP 20; TEMP 36.6; O2SAT 96
[2023-09-16 23:38] VITALS: BP 129/70; PULSE 99; RESP 16; O2SAT 94
[2023-09-17] VITALS (12 sets, daily range): BP systolic 102–154; BP diastolic 57–81; PULSE 76–90; RESP 14–24; TEMP 36.6–36.9; O2SAT 90–100; BMI 28.5
--- NOTE | 2023-09-17 00:33 | PC.NURSE ---
Pt requesting pain medication. Pt educated that pain medication cannot be given without an order from EDP, who has not seen pt yet. EDP barba notified of pt request.
--- NOTE | 2023-09-17 00:38 | ED.WOUNDLAC ---
HPI - Wound/Laceration General Chief Complaint: Wound/Laceration Stated Complaint: wound right foot Time Seen by Provider: 09/17/23 00:15 Source: patient and family (son) Mode of arrival: ambulatory Limitations: no limitations History of Present Illness HPI narrative: Pt presents with R foot wound at the bottom of heel. Seen for the same in July 2023. Had been advised at that time to follow up with Dr Ram but that did not occur. Prior to that, he had been followed in wound care clinic. Denies fevers. Son helps care for patient. States patient wears the same pair of shoes all the time. Had been on a course of PO antibiotics. Son does state he helps give dad insulin injections but has been busy so hasn't been available to do so all the time so there have been some missed doses. Supposed to be on 40U of a long acting insulin QHS. Related Data Home Medications Medication Instructions Recorded Confirmed aspirin 81 mg tablet,delayed 81 mg PO DAILY 09/05/21 09/17/23 release (Adult Low Dose Aspirin) atorvastatin 40 mg tablet (Lipitor) 40 mg PO DAILY 09/05/21 09/17/23 carvedilol 3.125 mg tablet (Coreg) 3.125 mg PO Q12H 09/05/21 09/17/23 empagliflozin 10 mg tablet 10 mg PO DAILY 09/05/21 09/17/23 (Jardiance) fenofibrate 160 mg tablet 160 mg PO DAILY 09/05/21 09/17/23 lisinopril 5 mg tablet (Zestril) 5 mg PO DAILY 09/05/21 09/17/23 insulin glargine 100 unit/mL (3 45 unit subcut HS 03/11/22 09/17/23 mL) subcutaneous pen (Lantus Solostar U-100 Insulin) Allergies Allergy/AdvReac Type Severity Reaction Status Date / Time metoclopramide AdvReac Mild Vomiting Verified 09/16/23 23:39 [facility] Past Medical History Medical History (Updated 09/18/23 @ 10:02 by Alondra Onofre MD) Cerebrovascular accident (06/2021) It sounds as though he had an ischemic stroke (symptoms include vertigo and visual changes) with hemorrhagic conversion. Chronic anemia Chronic obstructive pulmonary disease Coronary artery disease Status post bifurcation stents to the LAD and diagonal in 2006, stent to the LAD for in-stent restenoses in 2009, and CABG in April 2021 at [facility]. Diabetic foot ulcer Diabetic ulcer of right heel Encounter for postoperative care Gastroesophageal reflux disease Hypertension Kidney stones ILANA on CPAP Osteomyelitis of toe of right foot Peripheral arterial occlusive disease Personal history of noncompliance with medical treatment and regimen Seizure disorder Type 2 diabetes mellitus Surgical History Surgical History (Updated 09/18/23 @ 10:02 by Alondra Onofre MD) History of amputation of left great toe History of amputation of right great toe 03/11/23 History of coronary artery bypass graft (04/2021) Done at [facility]. History of inguinal hernia repair times 2 History of myringoplasty History of percutaneous coronary intervention Bifurcation stents to LAD and diagonal in 2006. Stent to the LAD in 2009. (three stents) Family History Family History Mother Family history of diabetes mellitus in first degree relative Other Diabetes mellitus Hypertension Social History Social History Social History: The patient lives with his and 2 sons in [place]. His sons help him out. 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 He smoked about a pack a day for nearly 45 years and he quit at the time of his bypass in April 2021. He was a heavier drinker in his younger years. No illicit substance use. Surrogate medical decision maker: Shahrzad Qiu, . Code status: Full code. Smoking packs per day: 1.5 Smoking cigarettes per day: 30.0 Years smoked: 30 Smoking pack-years: 45.00 Smoking status: Former smoker Second hand tobacco smoke exposure: Yes Alcohol intake: never Substance use: never Substance use type: does not use
[2023-09-17] MEDS: ACETAMINOPHEN 325 MG TABLET 650 MG PO ×2 (00:50→09:32)
[2023-09-17] MEDS: HYDROcodone/acetaminophen (*CRX) 5-325 MG TABLET 1 TAB PO (00:50)
[2023-09-17 01:06] LABS: Hematocrit 30.5 % (42.0-52.0); Mean Corpuscular HGB Conc 32.8 g/dl (32-36); Mean Corpuscular Hemoglobin 30.6 pg (26-34); Mean Corpuscular Volume 93.3 fl (80-100); Mean Platelet Volume 10.2 fl (7.4-10.4); Platelet Count Result 344 k/mm3 (150-375); Red Blood Count 3.27 M/mm3 (4.6-6.20); Red Cell Distribution Width 14.6 % (11.5-14.5); White Blood Count 26.3 K/mm3 (4.5-10.0)
[2023-09-17 01:23] LABS: Anisocytosis 1+; Band Neutrophils Percent 11 % (0-6); Lymphocytes Absolute Manual 1.84 K/mm3 (1.1-4.5); Monocytes Absolute Manual 0.78 K/mm3 (0.1-0.90); Monocytes Percent Manual 3 % (3-9); Neutrophils Absolute Manual 23.67 K/mm3 (1.3-6.7); Neutrophils Percent Manual 79 % (46-73); Platelet Estimate Slightly Increased (Adequate); Total Cells Counted 100
[2023-09-17 01:24] LABS: Hypochromasia 1+; Schistocytes Rare
[2023-09-17 01:28] LABS: Alanine Aminotransferase 24 U/L (6-50); Albumin Level 3.8 g/dL (3.5-5.1); Alkaline Phosphatase 67 U/L (38-126); Anion Gap 11 mmol/L (4-12); Aspartate Amino Transferase 29 U/L (17-59); Bilirubin,Total 0.7 mg/dL (0.2-1.3); Blood Urea Nitrogen 16 mg/dL (9-20); Calcium 8.6 mg/dL (8.4-10.2); Carbon Dioxide 19 mmol/L (22-30); Chloride 109 mmol/L (98-107); Estimated CRCL calculation 54 ml/min; Estimated Glomerular Filt Rate 51; Glucose 171 mg/dL (65-110); Potassium 3.2 mmol/L (3.4-5.0); Sodium 139 mmol/L (137-145)
[2023-09-17 01:32] LABS: Erythrocyte Sedimentation Rate > 140 mm/hr (0-20)
[2023-09-17 01:44] LABS: CRP 19.1 mg/dL (<1.0)
[2023-09-17] MEDS: KETOROLAC 15 MG/ML VIAL (*BKC) IV PUSH (02:19)
[2023-09-17] MEDS: SODIUM CHLORIDE 0.9% IV 1,000 ML 999 ML IV CONT (02:19)
[2023-09-17] MEDS: POTASSIUM BICARBONATE 25 MEQ TABEF 50 MEQ PO (02:20)
[2023-09-17] MEDS: CEFEPIME 1 GM/NS 50 ML 1 GM/50 ML BAG IVPB (06:27)
--- NOTE | 2023-09-17 07:20 | PM.IMHP ---
H&P: HPI History of Present Illness Date/Time: 09/17/23 07:20 Chief Complaint: Right foot wound Narrative: 63years old gentleman with history of CAD status post stent, and bypass, right toe amputation, type 2 diabetes, hypertension, COPD, present ED with a chief complaint of right foot wound. Patient has been having on healed ulcer of right heel more than 2 weeks. In passive days, patient has worsening pain of right heel, and also has worsening swelling, erythema around the ulcer. In past 2 days, patient noticed black skin around ulcer and deep tissue. Patient denies fever, chills. Patient also denies chest pain, shortness a breath, abdomen pain, nausea vomiting diarrhea dysuria. Patient came to ED for evaluation treatment. Upon arrival in ED, patient was afebrile, but has tachypnea tachycardia, blood pressure soft 102/57, lab showed white blood cell 26,300 with left shift, 11% band neutrophil,, hypokalemia potassium 3 .2 creatinine 1.4 PMFSH Past Medical History Medical History (Updated 09/17/23 @ 09:39 by Rashid Flower MD) Cerebrovascular accident (06/2021) It sounds as though he had an ischemic stroke (symptoms include vertigo and visual changes) with hemorrhagic conversion. Chronic anemia Chronic obstructive pulmonary disease Coronary artery disease Status post bifurcation stents to the LAD and diagonal in 2006, stent to the LAD for in-stent restenoses in 2009, and CABG in April 2021 at [facility]. Diabetic foot ulcer Diabetic ulcer of right heel Encounter for postoperative care Gastroesophageal reflux disease Hypertension Kidney stones ILANA on CPAP Osteomyelitis of toe of right foot Peripheral arterial occlusive disease Personal history of noncompliance with medical treatment and regimen Seizure disorder Type 2 diabetes mellitus Surgical History Surgical History History of amputation of right great toe History of coronary artery bypass graft (04/2021) Done at [facility]. History of inguinal hernia repair times 2 History of myringoplasty History of percutaneous coronary intervention Bifurcation stents to LAD and diagonal in 2006. Stent to the LAD in 2009. (three stents) Family History Family History Mother Family history of diabetes mellitus in first degree relative Other Diabetes mellitus Hypertension Social History Social History Social History: The patient lives with his and 2 sons in [place]. His sons help him out. 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 He smoked about a pack a day for nearly 45 years and he quit at the time of his bypass in April 2021. He was a heavier drinker in his younger years. No illicit substance use. Surrogate medical decision maker: Shahrzad Qiu, . Code status: Full code. Smoking packs per day: 1.5 Smoking cigarettes per day: 30.0 Years smoked: 30 Smoking pack-years: 45.00 Smoking status: Former smoker Second hand tobacco smoke exposure: Yes Alcohol intake: never Substance use: never Substance use type: does not use Do You Feel Safe in your Home?: Yes Lack of Transportation: No Lack of Food: Never True Current Housing: I Have Housing Concerned About Future Housing: No Difficulty Paying Gas/Electric Bills: No Difficulty Paying for Meds: No Currently Unemployed: No Education: High School Diploma/GED Difficulty w/ Childcare or Family Care: No Spiritual care concerns: No Meds Home Medications and Allergies Home Medications Medication Instructions Recorded Confirmed Type aspirin 81 mg tablet,delayed 81 mg PO DAILY 09/05/21 09/17/23 History release (Adult Low Dose Aspirin) atorvastatin 40 mg tablet (Lipitor) 40 mg PO DAILY 09/05/21 09/17/23 History carvedilol 3.125 mg tablet (Coreg) 3.125
[2023-09-17] MEDS: VANCOMYCIN 1,250 MG/NS 250 ML 1,250 MG/250 ML BAG 166.67 MG IVPB ×2 (07:28→09:29)
--- NOTE | 2023-09-17 09:30 | PM.CNOR ---
Assessment and Plan Assessment and plan (1) Type 2 diabetes mellitus with right diabetic foot infection: Code(s): E11.628 - Type 2 diabetes mellitus with other skin complications; L08.9 - Local infection of the skin and subcutaneous tissue, unspecified Status: Acute (2) Diabetic ulcer of right heel: Qualifiers: Diabetes mellitus type: type 2 Non-pressure ulcer stage: with necrosis of muscle Qualified Code(s): E11.621 - Type 2 diabetes mellitus with foot ulcer; L97.413 - Non-pressure chronic ulcer of right heel and midfoot with necrosis of muscle Code(s): E11.621 - Type 2 diabetes mellitus with foot ulcer; L97.419 - Non-pressure chronic ulcer of right heel and midfoot with unspecified severity Status: Acute Assessment and Plan: New evaluation for chief complaint Worsening right heel ulcer. History, physical exam and radiographs reviewed with the patient. patient known to service for previous left hallux osteomyelitis and amputation. Also subsequent right hallux amputation by general surgical team. Peripheral vascular and central vascular disease, peripheral neuropathy, poorly controlled diabetes. Discussed the condition, nature, etiology and course of natural history with the patient. Treatment options including surgical and nonoperative treatment were reviewed. Risks and benefits of each as well as alternatives reviewed. The patient's questions were answered. Pressure reduction. Start dressing changes with silver gel. Wound care consult. Allow antibiotics to circulate for 24 hours. Will re-evaluate. May require surgical debridement. Discussed with patient. Questions answered. History of Present Illness HPI Consult date: 09/17/23 Requesting physician: Alondra Onofre MD Chief complaint: Diabetic Foot Wound/Hypokalemia Narrative: 63-year-old gentleman with history of diabetes, peripheral neuropathy and peripheral as well as central vascular disease admitted for worsening right heel ulcer. Patient states he noticed heel ulcer from shoe wear 6 weeks ago. Was seen in the emergency room at that time. Since then he states ulcer worse with increased size and depth. Increased pain and patient presented to emergency room. History of bilateral hallux amputations. Review of Systems Constitutional: Constitutional: Denies fever(s) Eyes: Eyes: Denies blurry vision ENT: Reports Normal hearing present Cardiovascular: Cardiovascular: Denies chest pain and Denies dyspnea Respiratory: Respiratory: Denies dyspnea and Denies wheezing Gastrointestinal: Gastrointestinal: Denies abdominal pain Genitourinary: Genitourinary: Denies urinary urgency Musculoskeletal: Musculoskeletal: Reports as per HPI and Denies numbness Integumentary/Breasts: Skin/Breast: Denies changing lesions and Denies sores Neurologic: Reports Normal hearing present, Denies behavioral changes, Denies confusion, Denies numbness and Denies convulsions Psychiatric: Psychiatric: Denies behavioral changes, Denies confusion and Denies hallucinations Endocrine: Endocrine: Denies heat intolerance Hematologic/Lymphatic: Hematologic/Lymphatic: Denies easy bleeding Allergic/Immunologic: Allergic/Immunologic: Denies wheezing [facility] Past Medical History Medical History (Updated 09/17/23 @ 09:39 by Rashid Flower MD) Cerebrovascular accident (06/2021) It sounds as though he had an ischemic stroke (symptoms include vertigo and visual changes) with hemorrhagic conversion. Chronic anemia Chronic obstructive pulmonary disease Coronary artery disease Status post bifurcation stents to the LAD and diagonal in 2006, stent to the LAD for in-stent restenoses in 2009, and CABG in April 2021 at [facility]. Diabetic foot ulcer Diabetic ulcer of right heel Encounter for postoperative care Gastroesophageal reflux disease Hypertension Kidney stones ILANA on CPAP Osteomyelitis of toe of right foot Peripheral arterial occ
[2023-09-17] MEDS: HYDROcodone/acetaminophen (*CRX) 7.5-325 MG TABLET 1 TAB PO ×3 (10:01→20:49)
--- NOTE | 2023-09-17 10:05 | ADMGEN ---
This patient, Baldev Qiu, was admitted to [facility] Surg Room 311-01. Patient/family oriented to hospital policies and general routines including ID bracelet, bed and alarms, visiting hours, pain management, procedures, bathroom and other care routines, personal items, smoking policy, room service/diet, and visiting hours. Information on how to activate the Rapid Response Team has been discussed. Patient/Family are encouraged to report perceived risks to care and to ask questions if they do not understand what they are told or what they should do.
--- NOTE | 2023-09-17 11:20 | PC.NURSE ---
Called patient's Shahrzad per patient's request and updated her on patient's room number and current plan of care.
[2023-09-17 11:47] LABS: Glucose Point of Care 180 mg/dl (65-105)
[2023-09-17] MEDS: carBAMazepine 200 MG TABLET PO ×2 (16:40→20:49)
[2023-09-17] MEDS: CEFEPIME 2 GM/NS 50 ML 2 GM/50 ML BAG IVPB (16:40)
[2023-09-17 16:44] LABS: Glucose Point of Care 141 mg/dl (65-105)
[2023-09-17] MEDS: carvediloL 3.125 MG TABLET PO (20:49)
[2023-09-17 22:16] LABS: Glucose Point of Care 116 mg/dl (65-105)
[2023-09-18] MEDS: HYDROcodone/acetaminophen (*CRX) 7.5-325 MG TABLET 1 TAB PO ×3 (02:00→10:11)
[2023-09-18] MEDS: carBAMazepine 200 MG TABLET PO ×3 (06:11→22:07)
[2023-09-18] MEDS: CEFEPIME 2 GM/NS 50 ML 2 GM/50 ML BAG IVPB ×2 (06:11→18:24)
[2023-09-18] MEDS: VANCOMYCIN 1,500 MG/NS 500 ML 1,500 MG/500 ML BAG 250 MG IVPB (06:12)
[2023-09-18 06:15] VITALS: BP 122/98; PULSE 95; RESP 20; TEMP 36.3; O2SAT 93
[2023-09-18] MEDS: MORPHINE SULFATE (*CRX) 4 MG/ML INJ IV PUSH (06:24)
[2023-09-18 07:19] LABS: Estimated CRCL calculation 68 ml/min; Estimated Glomerular Filt Rate > 60
[2023-09-18 08:23] LABS: Glucose Point of Care 84 mg/dl (65-105)
[2023-09-18 08:30] VITALS: PULSE 90; RESP 20; O2SAT 93
--- NOTE | 2023-09-18 08:50 | PM.IMPN ---
Progress Note: A&P Assessment and Plan (1) Hypokalemia: Code(s): E87.6 - Hypokalemia Status: Acute (2) Osteomyelitis of toe of right foot: Code(s): M86.9 - Osteomyelitis, unspecified Status: Acute (3) Amputation of toe of right foot: Code(s): S98.131A - Complete traumatic amputation of one right lesser toe, initial encounter Status: Acute (4) Type 2 diabetes mellitus with right diabetic foot infection: Code(s): E11.628 - Type 2 diabetes mellitus with other skin complications; L08.9 - Local infection of the skin and subcutaneous tissue, unspecified Status: Acute (5) Cellulitis of right lower extremity: Code(s): L03.115 - Cellulitis of right lower limb Status: Acute (6) Sepsis: Code(s): A41.9 - Sepsis, unspecified organism Status: Acute (7) Coronary artery disease: Code(s): I25.10 - Atherosclerotic heart disease of [place] coronary artery without angina pectoris Status: Chronic (8) Chronic obstructive pulmonary disease: Qualifiers: COPD type: unspecified COPD Qualified Code(s): J44.9 - Chronic obstructive pulmonary disease, unspecified Code(s): J44.9 - Chronic obstructive pulmonary disease, unspecified Status: Acute Plan Cellulitis, nonhealing ulcer of right heel Patient has been having a nonhealing ulcer of right heel more than 2 weeks, daily cellulitis in past few days, xr of right foot unremarkable Recent wound culture grows a staphylococcal aureus, Pseudomonas aeruginosa, susceptible to cefepime and vancomycin Continue cefepime and vancomycin IV Consult Wound Care, orthopedic surgeon Plan debridement Sepsis Patient has leukocytosis, white blood cell 26.3K with a left shift, tachycardia tachypnea, meeting criteria of sepsis Follow-up wound culture, Start fluid resuscitation [place], hypokalemia Follow-up urinalysis, replete potassium chloride Fluid resuscitation Avoid nephrotoxic patient Follow-up BMP Essential hypertension Continue home medication lisinopril 5 mg daily p.o., carvedilol 3.125 mg b.i.d. p.o. Blood pressure is better controlled Diabetes Continue Lantus 45 units q.h.s. Start insulin sliding scale to a.c. and q.h.s. Continue Jardiance 10 mg daily p.o. BPH Continue tamsulosin 0.4 mg daily p.o. Patient may stay more than 2 midnights in the hospital Subjective Date/time seen: 09/18/23 08:50 Interval history: I saw exam patient today, patient still has severe right foot pain, patient is afebrile, blood pressure stable. Patient denies chest pain, shortness of breath abdomen pain, nausea vomiting diarrhea Exam Narrative: GENERAL: Pleasant, in no acute distress. Well-nourished. - EYES: EOMI. Anicteric. - HENT: Moist mucous membranes. - LUNGS: Clear to auscultation bilaterally, no wheezing, rhonchi, or rales. - CARDIOVASCULAR: Regular rate and rhythm. No murmur. No JVD. - ABDOMEN: Soft, non-tender and non-distended. No palpable masses. - EXTREMITIES: No edema. Peripheral pulses 2+. Non-tender. - NEUROLOGIC: No focal neurological deficits. CN II-XII grossly intact. - PSYCHIATRIC: Awake, Alert and oriented x 3. Appropriate mood and affect. - SKIN: Nonhealing right heel ulcer on the plantar, erythema, swelling around wound, dark skin and tissue of nonhealing wound - LYMPH: No cervical lymphadenopathy. Objective Data Vital Signs Vital Signs: Vital Signs - 24 hr 09/17/23 10:40 09/17/23 10:36 09/17/23 10:59 Temperature 98.2 F Pulse Rate 87 Respiratory Rate 19 Blood Pressure 121/59 L Pulse Oximetry 96 90 Oxygen Delivery Room Air Room Air 09/17/23 14:32 09/17/23 20:49 09/17/23 20:00 Temperature 98.3 F Pulse Rate 78 87 Respiratory Rate 16 Blood Pressure 124/68 Pulse Oximetry 100 Oxygen Delivery Room Air 09/17/23 20:45 09/18/23 06:15 Temperature 98.4 F 97.3 F L Pulse Rate 87 95 Respiratory Rate 24 H 20 Blood Pressure 154/76 H 1
[2023-09-18 09:42] VITALS: PULSE 90
[2023-09-18] MEDS: EMPAGLIFLOZIN 10 MG TABLET PO (09:42)
[2023-09-18] MEDS: TAMSULOSIN HCL 0.4 MG CAPSULE PO (09:42)
[2023-09-18] MEDS: carvediloL 3.125 MG TABLET PO ×2 (09:42→22:06)
[2023-09-18] MEDS: FINASTERIDE 5 MG TABLET PO (09:43)
[2023-09-18] MEDS: ASPIRIN 81 MG ENTERIC TABLET PO (09:43)
[2023-09-18] MEDS: lisinopriL 5 MG TABLET PO (09:43)
[2023-09-18] MEDS: ATORVASTATIN 40 MG TABLET PO (09:43)
[2023-09-18] MEDS: FENOFIBRATE 160 MG TABLET PO (09:43)
[2023-09-18] MEDS: ENOXAPARIN 40 MG/0.4 ML SYRINGE SUB-Q (09:43)
[2023-09-18] MEDS: ONDANSETRON INJ 4 MG/2 ML VIAL IV PUSH (10:18)
[2023-09-18] MEDS: CALCIUM CARBONATE (TUMS) 500 MG (200 MG ELEMENTAL) 400 MG PO (11:11)
[2023-09-18 12:05] LABS: Glucose Point of Care 104 mg/dl (65-105)
--- NOTE | 2023-09-18 12:05 | PCOTNOTE ---
Attmepted OT eval. Pt refuses stating that he has been throwing up and is having heart burn. Benefits of OT explained and pt asks to check back later. Will follow.
[2023-09-18 14:26] VITALS: BP 125/66; PULSE 84; RESP 17; TEMP 36.8; O2SAT 100
[2023-09-18 17:17] LABS: Glucose Point of Care 126 mg/dl (65-105)
[2023-09-18 20:50] LABS: Glucose Point of Care 117 mg/dl (65-105)
[2023-09-18 21:14] VITALS: BP 142/73; PULSE 82; RESP 18; TEMP 36.7; O2SAT 100
[2023-09-18 22:06] VITALS: PULSE 84
[2023-09-19] VITALS (9 sets, daily range): BP systolic 104–130; BP diastolic 55–77; PULSE 64–91; RESP 12–20; TEMP 36.2–37.7; O2SAT 92–100
[2023-09-19] MEDS: MORPHINE SULFATE (*CRX) 4 MG/ML INJ IV PUSH ×2 (01:32→05:56)
[2023-09-19] MEDS: CALCIUM CARBONATE (TUMS) 500 MG (200 MG ELEMENTAL) 400 MG PO (01:35)
[2023-09-19] MEDS: ONDANSETRON INJ 4 MG/2 ML VIAL IV PUSH (01:37)
[2023-09-19] MEDS: carBAMazepine 200 MG TABLET PO ×3 (05:33→19:37)
[2023-09-19] MEDS: CEFEPIME 2 GM/NS 50 ML 2 GM/50 ML BAG IVPB ×2 (05:33→17:07)
[2023-09-19] MEDS: HYDROcodone/acetaminophen (*CRX) 7.5-325 MG TABLET 1 TAB PO ×2 (05:33→19:37)
[2023-09-19 06:22] LABS: Estimated CRCL calculation 68 ml/min; Estimated Glomerular Filt Rate > 60
[2023-09-19 06:55] LABS: Vancomycin Trough 12.5 ug/mL (10.0-20.0)
--- NOTE | 2023-09-19 07:35 | PM.PNORT ---
Progress Note: A&P Assessment and Plan (1) Diabetic ulcer of right heel: Qualifiers: Diabetes mellitus type: type 2 Non-pressure ulcer stage: with necrosis of muscle Qualified Code(s): E11.621 - Type 2 diabetes mellitus with foot ulcer; L97.413 - Non-pressure chronic ulcer of right heel and midfoot with necrosis of muscle Code(s): E11.621 - Type 2 diabetes mellitus with foot ulcer; L97.419 - Non-pressure chronic ulcer of right heel and midfoot with unspecified severity Status: Acute Assessment and Plan: Discussed nonoperative and operative treatment options with the patient. Risks and benefits of each as well as alternatives were reviewed. All of the patient's questions were answered. The risks of surgery reviewed including but not limited to: Neurovascular damage, wound complication, infection, blood clot, pulmonary embolus, stroke, myocardial infarction, and anesthetic risks up to and including . Continued pain and possible dysfunction were explained. Specific risks of the procedure including later recurrence of deformity. No guarantees were offered. Patient verbalizes understanding and wishes to proceed. PLAN:Right foot debridement Subjective Subjective Date/Time Seen: 09/19/23 07:35 Principal diagnosis: RT heel ulcer Interval history: No new c/o Exam Const: General: No in distress or confusion Orientation/consciousness: oriented to person, oriented to place, oriented to time and No confusion HENMT: Head: normal to inspection, normocephalic and atraumatic Eyes: Conjunctivae: conjunctivae normal Sclera: sclerae normal Neck: Neck: supple and nontender Resp: Effort & Inspection: normal respiratory effort and no audible wheezes Cardio: Rhythm: regular rhythm Neuro: General: oriented to person, oriented to place, oriented to time and No confusion Extrem: Right upper extremity: normal to inspection Left upper extremity: normal to inspection Right lower extremity: edema Details: pitting and 3+, ankle Details: normal to inspection, abnormal ROM Details: with range as follows (ankle dorsiflexion -10 degrees, plantar flexion 40?, inversion 15?, eversion 15?) and other ( good stability all directions); no tenderness, no swelling and no ecchymosis and foot Details: abnormal to inspection ( Heel ulcer, hallux amputation), tenderness Location: of the calcaneus Details: point tenderness, abnormal ROM of toe ( hallux MTP dorsiflexion 40, plantar flexion 20?), vascular exam Details: abnormal capillary refill Location: of all toes; dorsalis pedis pulse absent, posterior tibial pulse absent and capillary refill abnormal, tendon exam Details: active flexion abnormal and active extension abnormal, motor-sensory exam Details: two point discrimination abnormal Location: in all toes and light-touch abnormal Location: in all toes and other (Hallux metatarsophalangeal motion 20? dorsiflexion/10? plantar flexion) Left lower extremity: edema Details: pitting and 3+, ankle Details: normal to inspection and abnormal ROM Details: with range as follows (ankle dorsiflexion -10 degrees, plantar flexion 40?, inversion 15?, eversion 15?); no tenderness and no swelling and foot Details: abnormal to inspection ( hallux amputation), abnormal ROM of toe, vascular exam Details: abnormal capillary refill Location: of all toes; dorsalis pedis pulse absent, posterior tivial pulse absent and capillary refill abnormal, tendon exam active flexion abnormal of the great toe and active extension abnormal of the great toe and motor-sensory exam two point discrimination abnormal and light-touch abnormal in all toes; no tenderness and no crepitus Other: nickel sized ulcer plantar right heel. No active drainage. Minimal surrounding erythema. Probes to sub fascial layer. No exposed bone or tendon Psych: Affect: normal affect Objective Data Vital Signs Vital Signs: Vital Signs - 24 hr 09/18/23 09:41 09/18/23 09:42 09/18/23 0
--- NOTE | 2023-09-19 07:37 | WPDHPUPDATE1 ---
History and Physical Update Update Date/Time: 09/19/23 07:37 History and Physical has been reviewed, including an updated exam of the patient. There are NO changes in the patient's condition. Risks, benefits, and alternatives have been discussed and questions answered. Patient agrees to proceed with procedure.
[2023-09-19 07:46] LABS: Glucose Point of Care 117 mg/dl (65-105)
[2023-09-19] MEDS: FINASTERIDE 5 MG TABLET PO (08:02)
[2023-09-19] MEDS: ATORVASTATIN 40 MG TABLET PO (08:02)
[2023-09-19] MEDS: lisinopriL 5 MG TABLET PO (08:02)
[2023-09-19] MEDS: EMPAGLIFLOZIN 10 MG TABLET PO (08:02)
[2023-09-19] MEDS: VANCOMYCIN 1,750 MG/NS 500 ML 1,750 MG/500 ML BAG 250 MG IVPB (08:02)
[2023-09-19] MEDS: TAMSULOSIN HCL 0.4 MG CAPSULE PO (08:02)
[2023-09-19] MEDS: carvediloL 3.125 MG TABLET PO ×2 (08:02→19:37)
[2023-09-19] MEDS: FENOFIBRATE 160 MG TABLET PO (08:02)
--- NOTE | 2023-09-19 08:26 | WPDANESEPPF ---
Anes - Initial Pre Proc Eval Procedure: Operation Date: 09/19/23 10:00 Proposed Procedures p Debridement Right Foot Ulcer - Rashdi Flower MD Date/Time: 09/19/23 08:26 Surgeon: Marivel Roberson DO Pre Op Diagnosis: Diabetic Foot Wound/Hypokalemia Patient Data Age: 63 Gender: M Height: 1.83 m Weight: 95.4 kg Last Vital Signs Temp 36.9 C 09/19/23 06:00 Pulse 64 09/19/23 06:00 Resp 18 09/19/23 06:00 BP 104/62 09/19/23 06:00 Pulse Ox 94 09/19/23 06:00 O2 Del Method Room Air 09/18/23 20:00 Allergies Allergy/AdvReac Type Severity Reaction Status Date / Time metoclopramide AdvReac Mild Vomiting Verified 09/16/23 23:39 Home Medications Medication Instructions Recorded Confirmed Type aspirin 81 mg tablet,delayed 81 mg PO DAILY 09/05/21 09/17/23 History release (Adult Low Dose Aspirin) atorvastatin 40 mg tablet (Lipitor) 40 mg PO DAILY 09/05/21 09/17/23 History carvedilol 3.125 mg tablet (Coreg) 3.125 mg PO Q12H 09/05/21 09/17/23 History empagliflozin 10 mg tablet 10 mg PO DAILY 09/05/21 09/17/23 History (Jardiance) fenofibrate 160 mg tablet 160 mg PO DAILY 09/05/21 09/17/23 History lisinopril 5 mg tablet (Zestril) 5 mg PO DAILY 09/05/21 09/17/23 History carbamazepine 200 mg tablet 200 mg PO Q8HR #90 tabs 09/07/21 09/17/23 Rx insulin glargine 100 unit/mL (3 45 unit subcut HS 03/11/22 09/17/23 History mL) subcutaneous pen (Lantus Solostar U-100 Insulin) finasteride 5 mg tablet (Proscar) 5 mg PO QAM 30 days #30 tabs 01/29/23 09/17/23 Rx tamsulosin 0.4 mg capsule 0.4 mg PO QAM 30 days #30 caps 01/29/23 09/17/23 Rx Laboratory Tests 09/18/23 09/18/23 09/18/23 11:55 17:04 20:18 Creatinine Estim Creat Clear Calc Estimated GFR POC Capillary Glucose 104 mg/dl 126 H mg/dl 117 H mg/dl (65-105) (65-105) (65-105) Vancomycin Trough 09/19/23 09/19/23 06:05 07:45 Creatinine 1.10 mg/dL (0.7-1.3) Estim Creat Clear Calc 68 ml/min Estimated GFR > 60 (59 - ) POC Capillary Glucose 117 H mg/dl (65-105) Vancomycin Trough 12.5 ug/mL (10.0-20.0) Patient hx anesthesia problems: none Family hx anesthesia problems: none Results Review: All pre-operative results and documents have been reviewed as part of the pre-operative evaluation. [facility] Past Medical History Medical History (Updated 09/19/23 @ 07:36 by Rashid Flower MD) Cerebrovascular accident (06/2021) It sounds as though he had an ischemic stroke (symptoms include vertigo and visual changes) with hemorrhagic conversion. Chronic anemia Chronic obstructive pulmonary disease Coronary artery disease Status post bifurcation stents to the LAD and diagonal in 2006, stent to the LAD for in-stent restenoses in 2009, and CABG in April 2021 at [facility]. Diabetic foot ulcer Diabetic ulcer of right heel Encounter for postoperative care Gastroesophageal reflux disease Hypertension Kidney stones ILANA on CPAP Osteomyelitis of toe of right foot Peripheral arterial occlusive disease Personal history of noncompliance with medical treatment and regimen Seizure disorder Type 2 diabetes mellitus Surgical History Surgical History (Updated 09/18/23 @ 10:02 by Alondra Onofre MD) History of amputation of left great toe History of amputation of right great toe 03/11/23 History of coronary artery bypass graft (04/2021) Done at [facility]. History of inguinal hernia repair times 2 History of myringoplasty History of percutaneous coronary intervention Bifurcation stents to LAD and diagonal in 2006. Stent to the LAD in 2009. (three stents) Family History Family History Mother Family history of diabetes mellitus in first degree relative Other Diabetes mellitus Hypertension Social History Social History (Reviewed 09/17/23 @ 09:32 by
--- NOTE | 2023-09-19 08:41 | PM.IMPN ---
Progress Note: A&P Assessment and Plan (1) Hypokalemia: Code(s): E87.6 - Hypokalemia Status: Acute (2) Osteomyelitis of toe of right foot: Code(s): M86.9 - Osteomyelitis, unspecified Status: Acute (3) Amputation of toe of right foot: Code(s): S98.131A - Complete traumatic amputation of one right lesser toe, initial encounter Status: Acute (4) Type 2 diabetes mellitus with right diabetic foot infection: Code(s): E11.628 - Type 2 diabetes mellitus with other skin complications; L08.9 - Local infection of the skin and subcutaneous tissue, unspecified Status: Acute (5) Cellulitis of right lower extremity: Code(s): L03.115 - Cellulitis of right lower limb Status: Acute (6) Sepsis: Code(s): A41.9 - Sepsis, unspecified organism Status: Acute (7) Coronary artery disease: Code(s): I25.10 - Atherosclerotic heart disease of [place] coronary artery without angina pectoris Status: Chronic (8) Chronic obstructive pulmonary disease: Qualifiers: COPD type: unspecified COPD Qualified Code(s): J44.9 - Chronic obstructive pulmonary disease, unspecified Code(s): J44.9 - Chronic obstructive pulmonary disease, unspecified Status: Acute Plan Cellulitis, nonhealing ulcer of right heel Patient has been having a nonhealing ulcer of right heel more than 2 weeks, daily cellulitis in past few days, xr of right foot unremarkable Recent wound culture grows a staphylococcal aureus, Pseudomonas aeruginosa, susceptible to cefepime and vancomycin Continue cefepime and vancomycin IV Consult Wound Care, orthopedic surgeon Status post debridement day 0, on Hemovac 09/18 Sepsis Patient has leukocytosis, white blood cell 26.3K with a left shift, tachycardia tachypnea, meeting criteria of sepsis Follow-up wound culture, Start fluid resuscitation now afeb wbc trends down [place], hypokalemia Follow-up urinalysis, replete potassium chloride Fluid resuscitation Avoid nephrotoxic patient Follow-up BMP, Cr down to 1.0 resolves Essential hypertension Continue home medication lisinopril 5 mg daily p.o., carvedilol 3.125 mg b.i.d. p.o. Blood pressure is better controlled Diabetes Continue Lantus 45 units q.h.s. Start insulin sliding scale to a.c. and q.h.s. Continue Jardiance 10 mg daily p.o. BPH Continue tamsulosin 0.4 mg daily p.o. Patient may stay more than 2 midnights in the hospital Subjective Date/time seen: 09/19/23 08:41 Interval history: Debridement Right Foot Ulcer D0, patient is somnolent arousable, no obvious distress Afebrile, blood pressure stable, pulse of 94 on room air Exam Narrative: GENERAL: Pleasant, in no acute distress. Well-nourished. - EYES: EOMI. Anicteric. - HENT: Moist mucous membranes. - LUNGS: Clear to auscultation bilaterally, no wheezing, rhonchi, or rales. - CARDIOVASCULAR: Regular rate and rhythm. No murmur. No JVD. - ABDOMEN: Soft, non-tender and non-distended. No palpable masses. - EXTREMITIES: No edema. Peripheral pulses 2+. Non-tender. - NEUROLOGIC: No focal neurological deficits. CN II-XII grossly intact. - PSYCHIATRIC: Awake, Alert and oriented x 3. Appropriate mood and affect. - SKIN: Nonhealing right heel ulcer on the plantar, status post debridement, on Hemovac - LYMPH: No cervical lymphadenopathy. Objective Data Vital Signs Vital Signs: Vital Signs - 24 hr 09/18/23 09:41 09/18/23 09:42 09/18/23 14:26 Temperature 98.3 F Pulse Rate 90 84 Respiratory Rate 17 Blood Pressure 125/66 Pulse Oximetry 100 Oxygen Delivery Room Air 09/18/23 21:14 09/18/23 22:06 09/18/23 20:00 Temperature 98.1 F Pulse Rate 82 84 Respiratory Rate 18 Blood Pressure 142/73 H Pulse Oximetry 100 Oxygen Delivery Room Air 09/19/23 06:00 Temperature 98.4 F Pulse Rate 64 Respiratory Rate 18 Blood Pressure 104/62 Pulse Oximetry 94 Oxygen Delivery Intak
--- NOTE | 2023-09-19 08:41 | PCOTNOTE ---
Attempted to see pt. for occupational therapy evaluation. Pt. being taken for surgery at this time. Nursing aware.
[2023-09-19] MEDS: LACTATED RINGERS 1,000 ML 30 ML IV CONT ×2 (09:03→10:31)
[2023-09-19 09:11] LABS: Glucose Point of Care 95 mg/dl (65-105)
[2023-09-19 09:19] LABS: Basophils Absolute Auto 0.1 K/mm3 (0.0-0.1); Basophils Percent Auto 0.2 % (0.2-1.2); Eosinophils Percent Auto 0.1 % (0-4.4); Hematocrit 32.4 % (42.0-52.0); Hemoglobin 10.2 g/dL (14.0-18.0); Immature Granulocyte Absolute 0.14 K/mm3 (0.00-0.031); Immature Granulocyte Percent A 0.7 % (0-0.5); Lymphocytes Absolute Auto 1.06 K/mm3 (0.9-3.2); Lymphocytes Percent Auto 4.9 % (18.3-44.2); Mean Corpuscular HGB Conc 31.5 g/dl (32-36); Mean Corpuscular Hemoglobin 30.8 pg (26-34); Mean Corpuscular Volume 97.9 fl (80-100); Mean Platelet Volume 11.5 fl (7.4-10.4); Monocytes Absolute Auto 1.9 K/mm3 (0.1-0.6); Monocytes Percent Auto 8.7 % (2.6-8.5); Neutrophils Absolute Auto 18.3 K/mm3 (1.3-6.7); Neutrophils Percent Auto 85.4 % (45.5-73.1); Platelet Count Result 416 k/mm3 (150-375); Red Blood Count 3.31 M/mm3 (4.6-6.20); Red Cell Distribution Width 14.8 % (11.5-14.5); White Blood Count 21.4 K/mm3 (4.5-10.0)
[2023-09-19 09:21] LABS: Anion Gap 15 mmol/L (4-12); Blood Urea Nitrogen 17 mg/dL (9-20); Calcium 8.6 mg/dL (8.4-10.2); Carbon Dioxide 12 mmol/L (22-30); Chloride 108 mmol/L (98-107); Estimated CRCL calculation 68 ml/min; Estimated Glomerular Filt Rate > 60; Glucose 120 mg/dL (65-110); Potassium 4.2 mmol/L (3.4-5.0); Sodium 135 mmol/L (137-145)
--- NOTE | 2023-09-19 10:16 | SUR.OPER ---
Culture taken to lab by Brielle Forbes RN. Delivered to and received by Xiomy.
[2023-09-19] MEDS: VANCOMYCIN HCL 1,000 MG VIAL 1000 MG TOPICAL (10:17)
[2023-09-19] MEDS: fentaNYL CITRATE INJ (*CRX) 100 MCG/2 ML VIAL 25 MCG IV PUSH ×3 (10:40→10:52)
[2023-09-19 10:46] LABS: Glucose Point of Care 104 mg/dl (65-105)
--- NOTE | 2023-09-19 11:22 | W.PM.PROC2 ---
Procedure Note - Detailed Date of Procedure 09/19/23 Pre-op Diagnosis Diabetic Foot Wound/Hypokalemia Post-op Diagnosis Same Procedure Performed Right foot excisional debridement Surgeon Rashid Flower MD [employer] Anesthesia General Indications 63-year-old with diabetes, peripheral neuropathy, peripheral vascular disease with right plantar heel ulcer which is worsening. Extending now with fluctuation over the medial heel pad. Presents for operative treatment. Findings 1.5 cm plantar heel ulcer right foot with necrotic tissue extending to the plantar calcaneus periosteum. Medial heel pad blister with purulent material and necrotic tissue underlying extending to the medial posterior calcaneum. Finished debridement ulcer size 5 x 4.5 cm x 1.2 cm. Necrotic tissue involving the periosteum but no erosion of the calcaneus bone. Description of Procedure Patient identified in the preoperative holding. Informed consent given. Operative extremity marked. Patient received intravenous antibiotics. Patient brought to the operating room where underwent general anesthetic by anesthesia team. Positioned supine on operating room table. Time-out performed confirming the patient, site of the surgery and the plan. Right foot prepped draped usual sterile surgical fashion using a Betadine prep solution. Tourniquet placed at the calf level and inflated to 250 mmHg. Plantar ulcer evaluated. 1.5 cm original ulcer with central necrotic tissue and purulent drainage extending to the plantar calcaneus bone. Communication with a large medial heel pad blister containing purulent material. Blister unroofed and noted to have necrotic tissue underlying the blister. Cultures taken. 15 blade knife used to sharply excise skin, subcutaneous tissue, muscle from the plantar ulcer and the medial heel. Finished wound 5 x 4.5 cm extending to the plantar calcaneus and medial calcaneus. Osteotome used to resect the plantar and medial calcaneal cortical bone. Smoothed with a rongeur. Thorough irrigation with vancomycin saline. Wound VAC dressing at continues 150 mmHg applied with black foam. Tourniquet released. The patient was then woken from anesthesia, extubated and taken to the recovery room in stable condition. All sponge, needle, instrument counts were correct at the end of the case. Estimated Blood Loss 20 Tourniquet Time Total Tourniquet Time: 45 Urine Output 350 Drains Yes Packing Yes (wound vac) Pathology Other (cultures) Complications None Condition Stable Disposition PACU [facility] Billing Surgery - Charge Forward: Surgery Billing ([id number])
[2023-09-19 12:02] LABS: Glucose Point of Care 93 mg/dl (65-105)
[2023-09-19] MEDS: polyethylene glycoL 3350 17 GM POWD.PACK PO (13:29)
[2023-09-19 16:42] LABS: Glucose Point of Care 97 mg/dl (65-105)
[2023-09-19] MEDS: SENNA/DOCUSATE SODIUM TABLET 2 TAB PO (17:07)
[2023-09-19 21:08] LABS: Glucose Point of Care 127 mg/dl (65-105)
[2023-09-20] VITALS (7 sets, daily range): BP systolic 127–139; BP diastolic 62–72; PULSE 79–96; RESP 16–18; TEMP 36.1–36.8; O2SAT 93–100
[2023-09-20] MEDS: CEFEPIME 2 GM/NS 50 ML 2 GM/50 ML BAG IVPB ×2 (05:20→16:33)
[2023-09-20 06:54] LABS: Basophils Absolute Auto 0.1 K/mm3 (0.0-0.1); Basophils Percent Auto 0.4 % (0.2-1.2); Eosinophils Absolute Auto 0.3 K/mm3 (0-0.3); Eosinophils Percent Auto 1.8 % (0-4.4); Hematocrit 32.2 % (42.0-52.0); Hemoglobin 9.9 g/dL (14.0-18.0); Immature Granulocyte Percent A 0.6 % (0-0.5); Lymphocytes Absolute Auto 1.17 K/mm3 (0.9-3.2); Lymphocytes Percent Auto 6.9 % (18.3-44.2); Mean Corpuscular HGB Conc 30.7 g/dl (32-36); Mean Corpuscular Hemoglobin 29.8 pg (26-34); Mean Platelet Volume 11.1 fl (7.4-10.4); Monocytes Absolute Auto 1.8 K/mm3 (0.1-0.6); Monocytes Percent Auto 10.9 % (2.6-8.5); Neutrophils Absolute Auto 13.4 K/mm3 (1.3-6.7); Neutrophils Percent Auto 79.4 % (45.5-73.1); Platelet Count Result 440 k/mm3 (150-375); Red Blood Count 3.32 M/mm3 (4.6-6.20); White Blood Count 16.9 K/mm3 (4.5-10.0)
[2023-09-20 07:12] LABS: Anion Gap 15 mmol/L (4-12); Blood Urea Nitrogen 16 mg/dL (9-20); Calcium 8.5 mg/dL (8.4-10.2); Carbon Dioxide 14 mmol/L (22-30); Chloride 109 mmol/L (98-107); Estimated CRCL calculation 82 ml/min; Estimated Glomerular Filt Rate > 60; Glucose 103 mg/dL (65-110); Potassium 4.1 mmol/L (3.4-5.0); Sodium 138 mmol/L (137-145)
--- NOTE | 2023-09-20 07:48 | WPDANESPN ---
Anes - Prog Note Post-Op Date/Time: 09/20/23 07:48 Cardiovascular status: normal Respiratory status: normal Airway patency: baseline Mental status: baseline Post-Op hydration status: normal Vital Signs: Last Vital Signs Temp 98.2 F 09/20/23 03:33 Pulse 80 09/20/23 03:33 Resp 17 09/20/23 03:33 BP 129/68 09/20/23 03:33 Pulse Ox 97 09/20/23 03:33 O2 Del Method Room Air 09/19/23 20:00 O2 Flow Rate 10 09/19/23 10:30 Pain Score (VAS): 0/10 I/O: Intake & Output 09/19/23 09/19/23 09/20/23 15:59 23:59 07:59 Intake Total 50 160 Output Total 350 Balance -300 160 Laboratory Tests 09/20/23 05:59 09/20/23 05:59 09/19/23 09/19/23 09/19/23 06:05 09:08 10:44 WBC 21.4 H RBC 3.31 L Hgb 10.2 L Hct 32.4 L MCV 97.9 MCH 30.8 MCHC 31.5 L RDW 14.8 H Plt Count 416 H MPV 11.5 H Immature Gran % (Auto) 0.7 H Neut % (Auto) 85.4 H Lymph % (Auto) 4.9 L Bent % (Auto) 8.7 H Eos % (Auto) 0.1 Baso % (Auto) 0.2 Lymph # (Auto) 1.06 Bent # (Auto) 1.9 H Eos # (Auto) 0.0 Baso # (Auto) 0.1 Abs Immat Gran (auto) 0.14 H Absolute Neuts (auto) 18.3 H Absolute Nucleated RBC 0.000 Nucleated RBC % 0.0 Sodium 135 L Potassium 4.2 Chloride 108 H Carbon Dioxide 12 L Anion Gap 15 BUN 17 Creatinine 1.10 Estim Creat Clear Calc 68 Estimated GFR > 60 Glucose 120 H POC Capillary Glucose 95 104 Calcium 8.6 09/19/23 09/19/23 09/19/23 11:57 16:37 21:05 WBC RBC Hgb Hct MCV MCH MCHC RDW Plt Count MPV Immature Gran % (Auto) Neut % (Auto) Lymph % (Auto) Bent % (Auto) Eos % (Auto) Baso % (Auto) Lymph # (Auto) Bent # (Auto) Eos # (Auto) Baso # (Auto) Abs Immat Gran (auto) Absolute Neuts (auto) Absolute Nucleated RBC Nucleated RBC % Sodium Potassium Chloride Carbon Dioxide Anion Gap BUN Creatinine Estim Creat Clear Calc Estimated GFR Glucose POC Capillary Glucose 93 97 127 H Calcium 09/20/23 05:59 WBC 16.9 H RBC 3.32 L Hgb 9.9 L Hct 32.2 L MCV 97.0 MCH 29.8 MCHC 30.7 L RDW 15.0 H Plt Count 440 H MPV 11.1 H Immature Gran % (Auto) 0.6 H Neut % (Auto) 79.4 H Lymph % (Auto) 6.9 L Bent % (Auto) 10.9 H Eos % (Auto) 1.8 Baso % (Auto) 0.4 Lymph # (Auto) 1.17 Bent # (Auto) 1.8 H Eos # (Auto) 0.3 Baso # (Auto) 0.1 Abs Immat Gran (auto) 0.10 H Absolute Neuts (auto) 13.4 H Absolute Nucleated RBC 0.000 Nucleated RBC % 0.0 Sodium 138 Potassium 4.1 Chloride 109 H Carbon Dioxide 14 L Anion Gap 15 BUN 16 Creatinine 0.90 Estim Creat Clear Calc 82 Estimated GFR > 60 Glucose 103 POC Capillary Glucose Calcium 8.5 Post-procedural complaints: none Patient Feedback: Patient satisfied with anesthetic care.
[2023-09-20 08:04] LABS: Glucose Point of Care 120 mg/dl (65-105)
--- NOTE | 2023-09-20 08:36 | PCOTNOTE ---
Attempted to see pt. for occupational therapy evaluation. Pt. sleeping and unable to be aroused to alertness for therapy services. Nursing aware. Following,
[2023-09-20] MEDS: VANCOMYCIN 1,750 MG/NS 500 ML 1,750 MG/500 ML BAG 250 MG IVPB (09:23)
[2023-09-20] MEDS: carvediloL 3.125 MG TABLET PO ×2 (09:29→22:03)
[2023-09-20] MEDS: lisinopriL 5 MG TABLET PO (09:29)
[2023-09-20] MEDS: TAMSULOSIN HCL 0.4 MG CAPSULE PO (09:30)
[2023-09-20] MEDS: FENOFIBRATE 160 MG TABLET PO (09:30)
[2023-09-20] MEDS: EMPAGLIFLOZIN 10 MG TABLET PO (09:30)
[2023-09-20] MEDS: FINASTERIDE 5 MG TABLET PO (09:30)
[2023-09-20] MEDS: ASPIRIN 81 MG ENTERIC TABLET PO (09:30)
[2023-09-20] MEDS: ATORVASTATIN 40 MG TABLET PO (09:30)
[2023-09-20] MEDS: polyethylene glycoL 3350 17 GM POWD.PACK PO (09:32)
[2023-09-20 11:15] LABS: Glucose Point of Care 109 mg/dl (65-105)
--- NOTE | 2023-09-20 13:10 | PM.PNORT ---
Progress Note: A&P Assessment and Plan (1) Diabetic ulcer of right heel: Qualifiers: Diabetes mellitus type: type 2 Non-pressure ulcer stage: with necrosis of muscle Qualified Code(s): E11.621 - Type 2 diabetes mellitus with foot ulcer; L97.413 - Non-pressure chronic ulcer of right heel and midfoot with necrosis of muscle Code(s): E11.621 - Type 2 diabetes mellitus with foot ulcer; L97.419 - Non-pressure chronic ulcer of right heel and midfoot with unspecified severity Status: Acute Assessment and Plan: POD #1: Right foot excisional debridement Wound VAC removed. Wound appears viable. Surrounding tissue with minimal cellulitis. Patient would benefit from reapplicaiton of wound VAC at this time. He would also benefit from graft application in the OR by Dr. Flower. The patients questions were answered. The patient desires operative treatment. Discussed Return to OR for debridement and graft application of the right heel as well repeat wound VAC application. Risks of surgery including but not limited to neurovascular damage, wound complications, blood clot, pulmonary embolus, stroke, myocardial infarction, anesthetic risks up to and including were reviewed. Continued pain and possible dysfunction were explained. No guarantees were offered. The patient understands and wishes to proceed. Plan: OR for debridement and graft application of the right heel as well repeat wound VAC application NPO at midnight . IV antibiotics per the medicine team. Pain control. NWB RLE. Plan Reviewed history, exam, radiographs and current labs with attending MD and covering surgeon, Dr. Flower, who agrees with current plan as indicated above. No further recommendations from Dr. Flower at this time. Subjective Subjective Date/Time Seen: 09/20/23 13:10 Post Op day: 1 Interval history: POD #1: Right foot excisional debridement Patient lethargic. He does respond to painful stimuli. Not following commands or answering questions appropriately. Per RN, patient was agitated overnight. RN reports patient has been somewhat lethargic throughout the day. No narcotics given today. Vitals requested while at bedside, stable. RN to discuss with medicine team as well. Review of Systems Review of Systems: ROS unobtainable: Yes unobtainable due to mental status Exam Const: General: lethargic and average body habitus; No combative or diaphoretic Orientation/consciousness: oriented to person Resp: Effort & Inspection: normal respiratory effort Other: Yawning frequently. GI: GI Palp: Yes Soft to palpation Skin: Wounds: wounds noted (RIGHT Medial Heel Wound ) Extrem: Other: Wound VAC removed right medial heel wound. Wound is 100% red/pink. Bone exposure noted but covered with thin layer of tissue. Psych: Speech and movement: Slowed movement present (Neuro) Objective Data Vital Signs Vital Signs: Vital Signs - 24 hr 09/19/23 19:37 09/19/23 21:08 09/20/23 00:01 Temperature 36.9 C 36.5 C Pulse Rate 91 91 84 Respiratory Rate 16 16 Blood Pressure 130/77 127/62 Pulse Oximetry 96 93 Oxygen Delivery 09/19/23 20:00 09/20/23 03:33 09/20/23 09:29 Temperature 36.8 C Pulse Rate 80 80 Respiratory Rate 17 Blood Pressure 129/68 Pulse Oximetry 97 Oxygen Delivery Room Air 09/20/23 09:32 Temperature Pulse Rate 80 Respiratory Rate 18 Blood Pressure Pulse Oximetry 97 Oxygen Delivery Room Air Intake/Output Intake/Output: Intake & Output 09/17/23 09/18/23 09/19/23 09/20/23 23:59 23:59 23:59 23:59 Intake Total 2660 2900 760 500 Output Total 500 350 350 Balance 2160 2550 410 500 Meds/Results Medications: Active Medications Generic Name Dose Route Start Last Admin Trade Name Freq PRN Reason Stop Dose Admin Acetaminophen 650 mg 09/17/23 06:25 09/17/23 09:32 Acetaminophen 325 Mg Tablet PO 650 mg Q4H PRN Administration Mild Pain (1-3
--- NOTE | 2023-09-20 13:28 | PCWOUND ---
LEONARDO NOTE Walked into patients room with Apryl Knox BREADING MACHINE TENDER for orthopedics to assess patient and his Right heel ulcer. Patient very confused, just staring off. Patient unable to follow simple commands when asked, just keeps yawning and sporadically sitting up. Patient very familiar to wound care as we followed him from end of 2022 to July of 2023 for a Right 1st toe amputation. Patient normally alert and oriented x3. Today patient can't say what his name is, when asked to smile, patient unable to perform task. When dressing was taken off, patient yelled out It's cold . BREADING MACHINE TENDER requested that patient's RN come to room due to patient's confusion, RN arrived and states that he has been drowsy all day but did work with therapy and received his morning medications at 0930. When asked if any neurological checks or tests have been performed, she stated no. BREADING MACHINE TENDER to reach out to hospitalist for further discussion on care.
[2023-09-20] MEDS: carBAMazepine 200 MG TABLET PO ×2 (13:29→22:03)
[2023-09-20 16:34] LABS: Glucose Point of Care 100 mg/dl (65-105)
--- NOTE | 2023-09-20 17:07 | PM.IMPN ---
Progress Note: A&P Assessment and Plan (1) Hypokalemia: Code(s): E87.6 - Hypokalemia Status: Acute (2) Osteomyelitis of toe of right foot: Code(s): M86.9 - Osteomyelitis, unspecified Status: Acute (3) Amputation of toe of right foot: Code(s): S98.131A - Complete traumatic amputation of one right lesser toe, initial encounter Status: Acute (4) Type 2 diabetes mellitus with right diabetic foot infection: Code(s): E11.628 - Type 2 diabetes mellitus with other skin complications; L08.9 - Local infection of the skin and subcutaneous tissue, unspecified Status: Acute (5) Cellulitis of right lower extremity: Code(s): L03.115 - Cellulitis of right lower limb Status: Acute (6) Sepsis: Code(s): A41.9 - Sepsis, unspecified organism Status: Acute (7) Coronary artery disease: Code(s): I25.10 - Atherosclerotic heart disease of [place] coronary artery without angina pectoris Status: Chronic (8) Chronic obstructive pulmonary disease: Qualifiers: COPD type: unspecified COPD Qualified Code(s): J44.9 - Chronic obstructive pulmonary disease, unspecified Code(s): J44.9 - Chronic obstructive pulmonary disease, unspecified Status: Acute Plan Cellulitis, nonhealing ulcer of right heel Patient has been having a nonhealing ulcer of right heel more than 2 weeks, daily cellulitis in past few days, xr of right foot unremarkable Recent wound culture grows a staphylococcal aureus, Pseudomonas aeruginosa, susceptible to cefepime and vancomycin Continue cefepime and vancomycin IV Consult Wound Care, orthopedic surgeon Status post debridement day 1, on Hemovac 09/19, scant sanguinous fluid drained out Sepsis Patient has leukocytosis, white blood cell 26.3K with a left shift, tachycardia tachypnea, meeting criteria of sepsis Follow-up wound culture, Start fluid resuscitation now afeb wbc trends down 16.9 Altered mental status Patient is somnolent, arousable, moving all extremities Patient is afebrile, no hypoglycemia Patient was agitated when patient was sent back to patient from PACU. Patient will work closely with a sitter. And today patient was somnolent, but not agitated, suspecting postop delirium Order CT head of brain Neuro check [place], hypokalemia Follow-up urinalysis, replete potassium chloride Fluid resuscitation Avoid nephrotoxic patient Follow-up BMP, Cr down to 1.0 resolves Essential hypertension Continue home medication lisinopril 5 mg daily p.o., carvedilol 3.125 mg b.i.d. p.o. Blood pressure is better controlled Diabetes Continue Lantus 45 units q.h.s. Start insulin sliding scale to a.c. and q.h.s. Continue Jardiance 10 mg daily p.o. BPH Continue tamsulosin 0.4 mg daily p.o. Patient may stay more than 2 midnights in the hospital Subjective Date/time seen: 09/20/23 17:07 Interval history: I saw and examined patient today. Patient was somnolent, arousable, moving all extremities, denies chest pain, abdomen pain nausea vomiting Exam Narrative: GENERAL: Sleepy in no acute distress. Well-nourished. - EYES: EOMI. Anicteric. - HENT: Moist mucous membranes. - LUNGS: Clear to auscultation bilaterally, no wheezing, rhonchi, or rales. - CARDIOVASCULAR: Regular rate and rhythm. No murmur. No JVD. - ABDOMEN: Soft, non-tender and non-distended. No palpable masses. - EXTREMITIES: No edema. Peripheral pulses 2+. Non-tender. - NEUROLOGIC: Somnolent, arousable, unable to evaluate orientation, patient moving all extremities - PSYCHIATRIC: Awake, Alert and oriented x 3. Appropriate mood and affect. - SKIN: Nonhealing right heel ulcer on the plantar, status post debridement, on Hemovac - LYMPH: No cervical lymphadenopathy. Objective Data Vital Signs Vital Signs: Vital Signs - 24 hr 09/19/23 19:37 09/19/23 21:08 09/20/23 00:01 Temperature 98.4 F 97.7 F Pulse Rate 91 91 84 Respiratory Rate
[2023-09-20 20:57] LABS: Glucose Point of Care 130 mg/dl (65-105)
[2023-09-20] MEDS: MORPHINE SULFATE (*CRX) 4 MG/ML INJ IV PUSH (23:11)
[2023-09-21] MEDS: MORPHINE SULFATE (*CRX) 4 MG/ML INJ IV PUSH ×3 (02:54→21:44)
[2023-09-21 05:26] VITALS: BP 142/75; PULSE 85; RESP 22; TEMP 36.5; O2SAT 95
[2023-09-21 06:41] LABS: Basophils Absolute Auto 0.1 K/mm3 (0.0-0.1); Basophils Percent Auto 0.3 % (0.2-1.2); Eosinophils Percent Auto 0.1 % (0-4.4); Hematocrit 35.1 % (42.0-52.0); Hemoglobin 11.1 g/dL (14.0-18.0); Immature Granulocyte Absolute 0.31 K/mm3 (0.00-0.031); Immature Granulocyte Percent A 1.7 % (0-0.5); Lymphocytes Absolute Auto 1.14 K/mm3 (0.9-3.2); Lymphocytes Percent Auto 6.3 % (18.3-44.2); Mean Corpuscular HGB Conc 31.6 g/dl (32-36); Mean Corpuscular Hemoglobin 30.2 pg (26-34); Mean Corpuscular Volume 95.6 fl (80-100); Mean Platelet Volume 10.7 fl (7.4-10.4); Monocytes Absolute Auto 1.4 K/mm3 (0.1-0.6); Monocytes Percent Auto 7.4 % (2.6-8.5); Neutrophils Absolute Auto 15.3 K/mm3 (1.3-6.7); Neutrophils Percent Auto 84.2 % (45.5-73.1); Platelet Count Result 549 k/mm3 (150-375); Red Blood Count 3.67 M/mm3 (4.6-6.20); Red Cell Distribution Width 15.1 % (11.5-14.5); White Blood Count 18.2 K/mm3 (4.5-10.0)
[2023-09-21] MEDS: CEFEPIME 2 GM/NS 50 ML 2 GM/50 ML BAG IVPB (06:46)
[2023-09-21] MEDS: carBAMazepine 200 MG TABLET PO ×2 (06:46→21:43)
[2023-09-21 06:48] LABS: Anion Gap 21 mmol/L (4-12); Blood Urea Nitrogen 17 mg/dL (9-20); Calcium 8.9 mg/dL (8.4-10.2); Carbon Dioxide 11 mmol/L (22-30); Chloride 111 mmol/L (98-107); Estimated CRCL calculation 74 ml/min; Estimated Glomerular Filt Rate > 60; Glucose 128 mg/dL (65-110); Sodium 143 mmol/L (137-145)
[2023-09-21 07:43] LABS: Glucose Point of Care 128 mg/dl (65-105)
--- NOTE | 2023-09-21 07:58 | PM.IMPN ---
Progress Note: A&P Assessment and Plan (1) Hypokalemia: Code(s): E87.6 - Hypokalemia Status: Acute (2) Osteomyelitis of toe of right foot: Code(s): M86.9 - Osteomyelitis, unspecified Status: Acute (3) Amputation of toe of right foot: Code(s): S98.131A - Complete traumatic amputation of one right lesser toe, initial encounter Status: Acute (4) Type 2 diabetes mellitus with right diabetic foot infection: Code(s): E11.628 - Type 2 diabetes mellitus with other skin complications; L08.9 - Local infection of the skin and subcutaneous tissue, unspecified Status: Acute (5) Cellulitis of right lower extremity: Code(s): L03.115 - Cellulitis of right lower limb Status: Acute (6) Sepsis: Code(s): A41.9 - Sepsis, unspecified organism Status: Acute (7) Coronary artery disease: Code(s): I25.10 - Atherosclerotic heart disease of [place] coronary artery without angina pectoris Status: Chronic (8) Chronic obstructive pulmonary disease: Qualifiers: COPD type: unspecified COPD Qualified Code(s): J44.9 - Chronic obstructive pulmonary disease, unspecified Code(s): J44.9 - Chronic obstructive pulmonary disease, unspecified Status: Acute (9) Metabolic acidosis: Code(s): E87.20 - Acidosis, unspecified Status: Acute Plan Cellulitis, nonhealing ulcer of right heel Patient has been having a nonhealing ulcer of right heel more than 2 weeks, daily cellulitis in past few days, xr of right foot unremarkable Recent wound culture grows a staphylococcal aureus, Pseudomonas aeruginosa, susceptible to cefepime and vancomycin Continue cefepime and vancomycin IV Consult Wound Care, orthopedic surgeon Status post debridement day 1, on Hemovac 09/19, scant sanguinous fluid drained out Wound culture on 09/18 grows mixed bacteria Sepsis Patient has leukocytosis, white blood cell 26.3K with a left shift, tachycardia tachypnea, meeting criteria of sepsis Follow-up wound culture, Start fluid resuscitation now afeb, leukocytosis persists Altered mental status Patient somnolent, arousable, moving all extremities Patient is afebrile, no hypoglycemia Patient was agitated when patient was sent back to patient from PACU. Patient will work closely with a sitter. And today patient was somnolent, but not agitated, suspecting postop delirium Order CT head of brain: no acute issues Neuro check Appreciate neurology's consultation, consider possible postop encephalopathy [place], hypokalemia Follow-up urinalysis, replete potassium chloride Fluid resuscitation Avoid nephrotoxic patient Follow-up BMP, Cr down to 1.0 resolves Metabolic acidosis ABG suggests decompensated metabolic acidosis, Bicarb P 11, is trending down gradually Lactic acid within normal limit, renal function within normal limit ? Possible lactic acidosis due to medications do general anaesthesia s/w sodium bicarbonate 150 mg went 50 mL/hour Follow-up BMP q.6 hours Consult putty mixer Essential hypertension Continue home medication lisinopril 5 mg daily p.o., carvedilol 3.125 mg b.i.d. p.o. Blood pressure is better controlled Diabetes Continue Lantus 45 units q.h.s. Start insulin sliding scale to a.c. and q.h.s. Continue Jardiance 10 mg daily p.o. BPH Continue tamsulosin 0.4 mg daily p.o. Patient may stay more than 2 midnights in the hospital Subjective Date/time seen: 09/21/23 07:58 Interval history: I saw and examined the patient in presents of neurologist and patient's nurse. Patient was confused, not oriented x3, patient moving all extremities, tried to climb out of bed. Patient does not have obvious distress. Patient is afebrile, blood pressure stable. Labs reviewed, patient still has leukocytosis 18,200, lactic acid within normal limit, ammonia level normal. Bicarbonate 11 Exam Narrative: GENERAL: Sleepy in no acute distress.
[2023-09-21 08:00] VITALS: PULSE 85; RESP 22; O2SAT 95
[2023-09-21 09:18] LABS: Procalcitonin 0.1 ng/mL
[2023-09-21] MEDS: VANCOMYCIN 1,750 MG/NS 500 ML 1,750 MG/500 ML BAG 125 MG IVPB (09:23)
--- NOTE | 2023-09-21 10:19 | PC.NURSE ---
Patient is very altered this AM, not able to answer questions or make eye contact when asked. Upon neuro exam, pt has no hand size worker bilaterally, cannot push/dorsiflex, pupils are mostly non-reactive. No facial drooping or drooling is noted. Unable to assess speech due to lack of communication. Pt tries to sit straight up in bed but quickly lays back down and goes to sleep. bed bug exterminator and MD Baez notified, Nestor informed RN to consult neurology. Neuro has been notified, VS stable. Will continue to monitor. Code stroke protocol has been reviewed and will be called if necessary.
--- NOTE | 2023-09-21 11:25 | WPDNEURCNPN ---
Assessment and Plan Assessment and plan (1) Encephalopathy: Code(s): G93.40 - Encephalopathy, unspecified Status: Acute Plan Encephalopathy, post anesthesia, will need observation being continued on all his medication including carbamazepine 200mg p.o. Q 8hours but he was taking for initially, will reexamine him again to see whether we need to have the EEG are not or any further intervention. Consult date: 09/21/23 HPI: Baldev Qiu is a 63 year old maleAdmitted to the hospital through the emergency room for the complaints of right foot Lavina at the bottom of the for which he was seen in July of 2023 as well and was advised to follow with Dr. Ram which he did not do so. His medications were listed aspirin 81mg daily, atorvastatin 40mg daily, carvedilol 3.125mg q.12 hours Jardiance 10mg daily, lisinopril 5mg daily, and insulin 45units subQ at night. He carries the diagnosis of stroke in the past, chronic obstructive pulmonary disease, coronary artery disease with history of stenting and subsequently CABG in April 2021, diabetic foot ulcer history of osteomyelitis of the toe of the right foot peripheral vascular disease and seizure disorder as well he has also undergone myringoplasty, he has history of 1.5 smoking packs per day ears smoke 30 with pack-years 45 no alcohol intake and initial exam in the emergency room was without any acute distress and he was oriented x3 with normal vital signs CBC with WBC is 26.3 and hemoglobin 10.0 C-reactive protein 19.[address] scan of the head on 4 2- for the bleed or space-occupying lesion, seen by orthopedic physician and underwent right foot excision and debridement, treated with the antibiotic for the possible wound culture, underwent debridement and graft application of right heel and wound VAC application, neuro consult obtained because not waking up initially he was agitated and CT scan of the head was obtained on 09/19 which is without any space-occupying lesion or bleed. [facility] Past Medical History Medical History (Updated 09/21/23 @ 11:37 by Karthikeyan Davidson MD) Cerebrovascular accident (06/2021) It sounds as though he had an ischemic stroke (symptoms include vertigo and visual changes) with hemorrhagic conversion. Chronic anemia Chronic obstructive pulmonary disease Coronary artery disease Status post bifurcation stents to the LAD and diagonal in 2006, stent to the LAD for in-stent restenoses in 2009, and CABG in April 2021 at [facility]. Diabetic foot ulcer Diabetic ulcer of right heel Encounter for postoperative care Gastroesophageal reflux disease Hypertension Kidney stones ILANA on CPAP Osteomyelitis of toe of right foot Peripheral arterial occlusive disease Personal history of noncompliance with medical treatment and regimen Seizure disorder Type 2 diabetes mellitus Surgical History Surgical History (Updated 09/18/23 @ 10:02 by Alondra Onofre MD) History of amputation of left great toe History of amputation of right great toe 03/11/23 History of coronary artery bypass graft (04/2021) Done at [facility]. History of inguinal hernia repair times 2 History of myringoplasty History of percutaneous coronary intervention Bifurcation stents to LAD and diagonal in 2006. Stent to the LAD in 2009. (three stents) Family History Family History Mother Family history of diabetes mellitus in first degree relative Other Diabetes mellitus Hypertension Social History Social History Social History: The patient lives with his and 2 sons in [place]. His sons help him out. 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 He smoked about a pack a day for nearly 45 years and he quit at the time of his bypass in April 2021. He was a heavier drinker in his younger years. No illicit substance use.
[2023-09-21 11:30] LABS: Glucose Point of Care 125 mg/dl (65-105)
[2023-09-21 11:57] LABS: Alveolar/Arterial O2 Gradient 59.4 mmHg; Base Excess ABG -11.9 mEq/l (+/-2.0); Fractional Inspired Oxygen 21 %; HCO3 ABG 12.3 mEq/l (22.0-26.0); Oxygen Content ABG 15.1 %vol (16.0-22.0); Oxygen Saturation ABG 90.7 % (95.0-100.0); Oxyhemoglobin 89.5 % THb (90.0-100.0); PO2 ABG 61.8 mmHg (80.0-100.0); PO2 FiO2 Ratio Arterial Blood 2.94 %
[2023-09-21 12:05] LABS: Modified Allen's Test Pass; PCO2 ABG 23.8 mmHg (35.0-45.0); Site Drawn LEFT RADIAL
[2023-09-21 12:07] LABS: Ammonia < 9 umol/L (9-30)
[2023-09-21 13:52] VITALS: BP 138/64; PULSE 84; RESP 16; TEMP 36.6; O2SAT 97
--- NOTE | 2023-09-21 15:14 | PM.CNNEP ---
Assessment and Plan Assessment and plan (1) Metabolic acidosis: Code(s): E87.20 - Acidosis, unspecified Status: Acute Assessment and Plan: etiology not clear... 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 Code(s): E11.621 - Type 2 diabetes mellitus with foot ulcer; L97.419 - Non-pressure chronic ulcer of right heel and midfoot with unspecified severity Status: Acute Assessment and Plan: s/p excisional debridement on 09/19/23 on antibiotics local wound care may require further surgical intervention Orthopedics following (3) Altered mental status: Code(s): R41.82 - Altered mental status, unspecified Status: Acute Assessment and Plan: etiology not clear Neurology following imaging to date noted continue supportive therapy I will continue to follow the patient with you while he remains hospitalized and make further recommendations as deemed necessary. Thank you for allowing me to participate in the care of this patient. History of Present Illness Reason for Consult Consult date: 09/21/23 Reason for consult: metabolic acidosis Chief Complaint Chief complaint: Diabetic Foot Wound/Hypokalemia History of Present Illness Narrative: All of the information of obtained is from review of the electronic medical record as well as discussion with the physician / nurses involved in the patient's care as the patient is unable to provide me with any meaningful history due to his current altered mentation. The patient is a 63-year-old male with a past medical history as outlined below who presented to [facility] Emergency Room for further evaluation of a right foot wound. The patient apparently has had a right heel ulcer that has been present for the last few weeks. He actually presented to the emergency room previously for this issue and was recommended that he follow-up with General surgery for further wound management but this apparently has not really occurred. In the past few days, he reportedly had increasing pain in his right heel area in association with worsening swelling and erythema around the ulceration. He apparently has noted more black skin around the ulcer and in the deep tissue as well. No reported fevers or chills or for that matter chest pain, shortness of breath, nausea, vomiting, or diarrhea. Given the nature of the wound and the worsening appearance in association with pain, he came to the emergency room for further assessment. Workup and evaluation emergency room demonstrated the patient be hemodynamically stable and afebrile but was noted be tachycardic and mildly tachypneic. His blood pressure was on the soft side in the 100 systolic range but he appeared to be mentating fairly well. Routine blood test demonstrated an elevated white blood cell count of 26 with a left shift in association with mild hypokalemia and a mildly elevated creatinine at 1.4 mg/dL. Given the worsening appearance of the wound in the emergency room in association with the high white blood cell count, orthopedic surgery was consulted in the emergency room and after appropriate cultures were obtained, IV fluids and IV antibiotics were initiated and he was subsequently admitted to the hospital for further evaluation and therapy. Since his admission, he was taken to the OR for right foot excisional debridement on 09/19/2023. He tolerated this procedure reasonably well but since that operative intervention, he has been having ongoing issues and problems
[2023-09-21 15:42] LABS: Anion Gap 17 mmol/L (4-12); Blood Urea Nitrogen 19 mg/dL (9-20); Carbon Dioxide 14 mmol/L (22-30); Chloride 111 mmol/L (98-107); Estimated CRCL calculation 82 ml/min; Estimated Glomerular Filt Rate > 60; Glucose 141 mg/dL (65-110); Potassium 4.4 mmol/L (3.4-5.0); Sodium 142 mmol/L (137-145)
[2023-09-21] MEDS: SODIUM BICARBONATE 8.4% 150 MEQ in WATER, STERILE FOR INJECTION 950 ML 50 MEQ IV CONT (16:21)
[2023-09-21 16:30] LABS: Glucose Point of Care 146 mg/dl (65-105)
[2023-09-21 21:19] LABS: Anion Gap 19 mmol/L (4-12); Blood Urea Nitrogen 20 mg/dL (9-20); Calcium 9.4 mg/dL (8.4-10.2); Carbon Dioxide 13 mmol/L (22-30); Chloride 111 mmol/L (98-107); Estimated CRCL calculation 74 ml/min; Estimated Glomerular Filt Rate > 60; Glucose 164 mg/dL (65-110); Potassium 4.7 mmol/L (3.4-5.0); Sodium 143 mmol/L (137-145)
[2023-09-21 21:35] VITALS: BP 142/78; PULSE 89; RESP 28; TEMP 37.1; O2SAT 98
[2023-09-21 21:40] VITALS: PULSE 88
[2023-09-21] MEDS: carvediloL 3.125 MG TABLET PO (21:40)
[2023-09-21] MEDS: INSULIN GLARGINE (*BKC) 100 UNITS/ML 45 UNITS SUB-Q (21:44)
[2023-09-21 21:52] LABS: Glucose Point of Care 154 mg/dl (65-105)
[2023-09-21 22:57] VITALS: RESP 20
[2023-09-22] VITALS (8 sets, daily range): BP systolic 140–162; BP diastolic 72–86; PULSE 78–95; RESP 12–22; TEMP 36.8–37.9; O2SAT 92–97
[2023-09-22 00:40] LABS: Glucose Point of Care 147 mg/dl (65-105)
[2023-09-22 02:36] LABS: Anion Gap 17 mmol/L (4-12); Blood Urea Nitrogen 20 mg/dL (9-20); Carbon Dioxide 15 mmol/L (22-30); Chloride 111 mmol/L (98-107); Estimated CRCL calculation 82 ml/min; Estimated Glomerular Filt Rate > 60; Glucose 147 mg/dL (65-110); Potassium 4.2 mmol/L (3.4-5.0); Sodium 143 mmol/L (137-145)
[2023-09-22] MEDS: CEFEPIME 2 GM/NS 50 ML 2 GM/50 ML BAG IVPB ×2 (06:00→18:02)
--- NOTE | 2023-09-22 06:55 | PC.NURSE ---
Pt transported to pre op via bed.
[2023-09-22 07:13] LABS: Glucose Point of Care 116 mg/dl (65-105)
--- NOTE | 2023-09-22 07:20 | SUR.PREOP ---
0720- Per Dr. Flower and Dr. Kramer patient procedure cancelled for today due to current medical status after evaluation of patient at bedside. Patient vitals at 0658- temperature 100.2, HR 81, RR 20, BP 151/73 and oxygen saturation 97% on room air. 0722- Call to DEEPIKA Rivera to notify that patient is cancelled for today. 0740- Patient transported via bed on room air with hard chart by DEEPIKA Roche and MARISA Hannah with wound vac in place and sodium bicarb infusing via IV pump.
--- NOTE | 2023-09-22 07:35 | PM.PNORT ---
Progress Note: A&P Assessment and Plan (1) Metabolic acidosis: Code(s): E87.20 - Acidosis, unspecified Status: Acute (2) Encephalopathy: Code(s): G93.40 - Encephalopathy, unspecified Status: Acute Assessment and Plan: Presented to preoperative holding unresponsive to verbal questioning. Arterial blood gas shows acidosis. Breath sounds coarse. MRI yesterday negative. CT of the head negative. Discussed with Anesthesiology. Not medically stable to proceed with surgery at this time. Plan for patient to return to floor to continue medical workup. Continue with wound vac to right foot. Possible return to operating for debridement and application graft when medically stable (3) Diabetic ulcer of right heel: Qualifiers: Diabetes mellitus type: type 2 Non-pressure ulcer stage: with necrosis of muscle Qualified Code(s): E11.621 - Type 2 diabetes mellitus with foot ulcer; L97.413 - Non-pressure chronic ulcer of right heel and midfoot with necrosis of muscle Code(s): E11.621 - Type 2 diabetes mellitus with foot ulcer; L97.419 - Non-pressure chronic ulcer of right heel and midfoot with unspecified severity Status: Acute Assessment and Plan: Delay surgery until medically stable. Continue with wound VAC in the interim. Planned wound VAC dressing tomorrow. Subjective Subjective Date/Time Seen: 09/22/23 07:35 Post Op day: 3 Principal diagnosis: Right foot diabetic foot ulcer Interval history: patient brought to preop holding for planned surgical debridement of the right foot. Patient noted to be in no acute distress but not responsive to questions or surrounding. Breathing on own. Exam Const: General: lethargic and average body habitus; No combative or diaphoretic Resp: Effort & Inspection: normal respiratory effort Skin: Wounds: wounds noted (RIGHT Medial Heel Wound ) Extrem: Other: Wound VAC In place right heel. Dressing clean. Remaining toes with capillary refill. Objective Data Vital Signs Vital Signs: Vital Signs - 24 hr 09/21/23 08:00 09/21/23 13:52 09/21/23 21:40 Temperature 97.9 F Pulse Rate 85 84 88 Respiratory Rate 22 H 16 Blood Pressure 138/64 Pulse Oximetry 95 97 Oxygen Delivery Room Air 09/21/23 21:35 09/21/23 22:57 09/22/23 04:45 Temperature 98.8 F 98.3 F Pulse Rate 89 83 Respiratory Rate 28 H 20 22 H Blood Pressure 142/78 H 148/72 H Pulse Oximetry 98 96 Oxygen Delivery Intake/Output Intake/Output: Intake & Output 09/19/23 09/20/23 09/21/23 09/22/23 23:59 23:59 23:59 23:59 Intake Total 760 600 50 0 Output Total 350 Balance 410 600 50 0 Meds/Results Medications: Active Medications Generic Name Dose Route Start Last Admin Trade Name Freq PRN Reason Stop Dose Admin Acetaminophen 650 mg 09/17/23 06:25 09/17/23 09:32 Acetaminophen 325 Mg Tablet PO 650 mg Q4H PRN Administration Mild Pain (1-3) or Fever Hydrocodone Bitart/Acetaminophen 1 tab 09/17/23 09:27 09/19/23 19:37 Hydrocodone/Acetaminophen (*Crx) 7.5-325 Mg Tablet PO 1 tab Q4H PRN Administration Pain Rated 4-6 Aspirin 81 mg 09/18/23 09:00 09/21/23 15:17 Aspirin 81 Mg Enteric Tablet PO Not Given DAILY [facility] Atorvastatin Calcium 40 mg 09/18/23 09:00 09/21/23 15:17 Atorvastatin 40 Mg Tablet PO Not Given DAILY LEAH Calcium Carbonate 400 mg 09/18/23 11:04 09/19/23 01:35 Calcium Carbonate (Tums) 500 Mg (200 Mg Elemental) PO 400 mg Q6H PRN Administration Indigestion Carbamazepine 200 mg 09/21/23 06:30 09/22/23 05:31 Carbamazepine 200 Mg Tablet PO Not Given Q8HR LEAH Carvedilol 3.125 mg 09/17/23 21:00 09/21/23 21:40 Carvedilol 3.125 Mg Tablet PO 3.125 mg Q12HR LEAH Administration Dextrose 12.5 gm 09/17/23 06:25 Dextrose 50% 25 Gm/50 Ml Syringe IV PUSH PRN PRN Hypoglycemia Protocol Empagliflozin 10 mg 09/18/23 09:00
--- NOTE | 2023-09-22 07:40 | PC.NURSE ---
Pt returned to floor due to procedure cancellation
--- NOTE | 2023-09-22 07:59 | PM.IMPN ---
Progress Note: A&P Assessment and Plan (1) Hypokalemia: Code(s): E87.6 - Hypokalemia Status: Acute (2) Osteomyelitis of toe of right foot: Code(s): M86.9 - Osteomyelitis, unspecified Status: Acute (3) Amputation of toe of right foot: Code(s): S98.131A - Complete traumatic amputation of one right lesser toe, initial encounter Status: Acute (4) Type 2 diabetes mellitus with right diabetic foot infection: Code(s): E11.628 - Type 2 diabetes mellitus with other skin complications; L08.9 - Local infection of the skin and subcutaneous tissue, unspecified Status: Acute (5) Cellulitis of right lower extremity: Code(s): L03.115 - Cellulitis of right lower limb Status: Acute (6) Sepsis: Code(s): A41.9 - Sepsis, unspecified organism Status: Acute (7) Coronary artery disease: Code(s): I25.10 - Atherosclerotic heart disease of [place] coronary artery without angina pectoris Status: Chronic (8) Chronic obstructive pulmonary disease: Qualifiers: COPD type: unspecified COPD Qualified Code(s): J44.9 - Chronic obstructive pulmonary disease, unspecified Code(s): J44.9 - Chronic obstructive pulmonary disease, unspecified Status: Acute (9) Metabolic acidosis: Code(s): E87.20 - Acidosis, unspecified Status: Acute Plan Cellulitis, nonhealing ulcer of right heel Patient has been having a nonhealing ulcer of right heel more than 2 weeks, daily cellulitis in past few days, xr of right foot unremarkable Recent wound culture grows a staphylococcal aureus, Pseudomonas aeruginosa, susceptible to cefepime and vancomycin Continue cefepime and vancomycin IV Consult Wound Care, orthopedic surgeon Status post debridement day 1, on Hemovac 09/19, scant sanguinous fluid drained out Wound culture on 09/18 grows mixed bacteria Sepsis Patient has leukocytosis, white blood cell 26.3K with a left shift, tachycardia tachypnea, meeting criteria of sepsis Follow-up wound culture, Start fluid resuscitation now afeb, leukocytosis persists 09/21: fever 100.2 WBC 18K, chest x-ray shows minimal congestion, UA unremarkable, repeated blood culture pending Altered mental status Patient somnolent, arousable, moving all extremities Patient is afebrile, no hypoglycemia Patient was agitated when patient was sent back to patient from PACU. Patient will work closely with a sitter. And today patient was somnolent, but not agitated, suspecting postop delirium Order CT head of brain: no acute issues Brain MRI shows no acute issues Neuro check Appreciate neurology's consultation, consider possible postop encephalopathy 4:4; given fever and persisted confusion, request lumbar puncture today, studies of CSF pending. pt does not have nausea vomiting Continue vancomycin cefepime Flagyl add ampicillin 2 g q.4 hours IV waiting for neurologist evaluation [place], hypokalemia Follow-up urinalysis, replete potassium chloride Fluid resuscitation Avoid nephrotoxic patient Follow-up BMP, Cr down to 1.0 resolves Metabolic acidosis ABG suggests decompensated metabolic acidosis, Bicarb P 11, is trending down gradually Lactic acid within normal limit, renal function within normal limit ? Possible lactic acidosis due to medications do general anaesthesia s/w sodium bicarbonate 150 mg went 50 mL/hour Follow-up BMP q.6 hours Consult spinner hand 09/21: Sodium bicarbonate 15 a.m., continue sodium bicarbonate IV drip, Essential hypertension Continue home medication lisinopril 5 mg daily p.o., carvedilol 3.125 mg b.i.d. p.o. Blood pressure is better controlled Diabetes No hypoglycemia since admission dc Lantus 45 units q.h.s. because of poor oral intake dc Jardiance 10 mg daily p.o. Continue insulin sliding scale to a.c. and q.h.s. BPH Continue tamsulosin 0.4 mg daily p.o. Patient may stay more than 2 midnights in the hospital Subjective Date/t
[2023-09-22 08:02] LABS: Glucose Point of Care 128 mg/dl (65-105)
--- NOTE | 2023-09-22 08:07 | PC.NURSE ---
SNT at bedside to get BG, SNT asked this rn to see patient as he was slow to respond. Upon assessment patient is laying still, not responsive to verbal, this rn began light sternal rub to get patient response, patient opened eyes and moved head. pt has pinpoint unreactive pupils. pulse 89, o2 98 at this time. Pt unable to swallow or follow instruction, no oral medications given. MD notified, new orders put in my MD.
[2023-09-22 08:58] LABS: Basophils Absolute Auto 0.1 K/mm3 (0.0-0.1); Basophils Percent Auto 0.3 % (0.2-1.2); Eosinophils Percent Auto 0.1 % (0-4.4); Hematocrit 32.2 % (42.0-52.0); Hemoglobin 10.7 g/dL (14.0-18.0); Immature Granulocyte Absolute 0.33 K/mm3 (0.00-0.031); Immature Granulocyte Percent A 1.8 % (0-0.5); Lymphocytes Absolute Auto 1.36 K/mm3 (0.9-3.2); Lymphocytes Percent Auto 7.5 % (18.3-44.2); Mean Corpuscular HGB Conc 33.2 g/dl (32-36); Mean Corpuscular Hemoglobin 30.7 pg (26-34); Mean Corpuscular Volume 92.5 fl (80-100); Mean Platelet Volume 10.2 fl (7.4-10.4); Monocytes Absolute Auto 1.6 K/mm3 (0.1-0.6); Neutrophils Absolute Auto 14.7 K/mm3 (1.3-6.7); Neutrophils Percent Auto 81.3 % (45.5-73.1); Platelet Count Result 564 k/mm3 (150-375); Red Blood Count 3.48 M/mm3 (4.6-6.20); Red Cell Distribution Width 15.1 % (11.5-14.5); White Blood Count 18.1 K/mm3 (4.5-10.0)
[2023-09-22 09:00] LABS: Alveolar/Arterial O2 Gradient 41.7 mmHg; Base Excess ABG -3.5 mEq/l (+/-2.0); Fractional Inspired Oxygen 21 %; HCO3 ABG 19.1 mEq/l (22.0-26.0); Oxygen Content ABG 15.9 %vol (16.0-22.0); Oxyhemoglobin 94.6 % THb (90.0-100.0); PCO2 ABG 27.4 mmHg (35.0-45.0); PO2 ABG 75.2 mmHg (80.0-100.0); PO2 FiO2 Ratio Arterial Blood 3.58 %; Total Hemoglobin 11.9 g/dL (12.0-18.0); pH ABG 7.461 (7.350-7.450)
[2023-09-22 09:00] LABS: Lactic Acid Reflex 0.9 mmol/L (0.7-2.0)
[2023-09-22 09:02] LABS: Modified Allen's Test Pass; Site Drawn LEFT RADIAL
[2023-09-22 09:05] LABS: Anion Gap 12 mmol/L (4-12); Blood Urea Nitrogen 21 mg/dL (9-20); Calcium 8.9 mg/dL (8.4-10.2); Carbon Dioxide 19 mmol/L (22-30); Chloride 111 mmol/L (98-107); Estimated CRCL calculation 91 ml/min; Estimated Glomerular Filt Rate > 60; Glucose 132 mg/dL (65-110); Magnesium 2.3 mg/dL (1.6-2.3); Phosphorus 1.4 mg/dL (2.5-4.5); Potassium 3.9 mmol/L (3.4-5.0); Sodium 142 mmol/L (137-145)
[2023-09-22 09:18] LABS: Vancomycin Trough 12.1 ug/mL (10.0-20.0)
[2023-09-22 09:33] LABS: Alanine Aminotransferase 17 U/L (6-50); Albumin Level 3.5 g/dL (3.5-5.1); Alkaline Phosphatase 68 U/L (38-126); Anion Gap 13 mmol/L (4-12); Aspartate Amino Transferase 21 U/L (17-59); Bilirubin,Total 0.5 mg/dL (0.2-1.3); Blood Urea Nitrogen 21 mg/dL (9-20); Carbon Dioxide 18 mmol/L (22-30); Chloride 111 mmol/L (98-107); Estimated CRCL calculation 91 ml/min; Estimated Glomerular Filt Rate > 60; Glucose 131 mg/dL (65-110); Sodium 142 mmol/L (137-145)
[2023-09-22] MEDS: VANCOMYCIN 1,750 MG/NS 500 ML 1,750 MG/500 ML BAG 250 MG IVPB (09:58)
[2023-09-22 10:14] LABS: Procalcitonin 0.1 ng/mL
[2023-09-22 12:03] LABS: Glucose Point of Care 126 mg/dl (65-105)
--- NOTE | 2023-09-22 12:08 | PCOTNOTE ---
Per RN, Patient not to be seen this date. Patient unable to participate in services
[2023-09-22 13:48] LABS: Anion Gap 12 mmol/L (4-12); Blood Urea Nitrogen 20 mg/dL (9-20); Calcium 9.1 mg/dL (8.4-10.2); Carbon Dioxide 21 mmol/L (22-30); Chloride 110 mmol/L (98-107); Estimated CRCL calculation 91 ml/min; Estimated Glomerular Filt Rate > 60; Glucose 131 mg/dL (65-110); Potassium 3.9 mmol/L (3.4-5.0); Sodium 143 mmol/L (137-145)
--- NOTE | 2023-09-22 13:51 | PM.PNNEP ---
Progress Note: A&P Assessment and Plan (1) Metabolic acidosis: Code(s): E87.20 - Acidosis, unspecified Status: Acute Assessment and Plan: resolving etiology not clear... 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 Code(s): E11.621 - Type 2 diabetes mellitus with foot ulcer; L97.419 - Non-pressure chronic ulcer of right heel and midfoot with unspecified severity Status: Acute Assessment and Plan: s/p excisional debridement on 09/19/23 on antibiotics local wound care may require further surgical intervention Orthopedics following (3) Altered mental status: Code(s): R41.82 - Altered mental status, unspecified Status: Acute Assessment and Plan: etiology not clear Neurology following imaging to date noted continue supportive therapy Will continueto follow Subjective Date/time seen: 09/22/23 13:51 Interval history: Follow-up for metabolic acidosis. Scheduled repeat surgical debridement of right foot canceled today due to ongoing altered mental status/encephalopathy; mentation remains the same -- noncommunicative/nonverbal but awake; no apparent distress noted. Exam Narrative: General: ill appearing male - sleepy/lethargic (and difficult to arouse) Heart: normal S1 and S2; no rub Lungs: clear to auscultation Abdomen: soft, nontender, nondistended, positive bowel sounds Extremities: no cyanosis or clubbing; no edema Skin: right heel wound vac noted Objective Data Vital Signs Vital Signs: Vital Signs Temp Pulse Resp BP Pulse Ox O2 Del Method 09/22/23 13:09 95 20 140/82 92 09/22/23 08:10 98.6 F 86 12 162/80 H 97 09/22/23 06:57 100.2 F H 81 20 151/73 H 97 Room Air 09/22/23 04:45 98.3 F 83 22 H 148/72 H 96 09/21/23 22:57 20 09/21/23 21:35 98.8 F 89 28 H 142/78 H 98 09/21/23 21:40 88 Intake/Output Intake/Output: Intake & Output 09/19/23 09/20/23 09/21/23 09/22/23 23:59 23:59 23:59 23:59 Intake Total 760 600 50 500 Output Total 350 Balance 410 600 50 500 Meds/Results Medications: Active Medications Generic Name Dose Route Start Last Admin Trade Name Freq PRN Reason Stop Dose Admin Acetaminophen 650 mg 09/17/23 06:25 09/17/23 09:32 Acetaminophen 325 Mg Tablet PO 650 mg Q4H PRN Administration Mild Pain (1-3) or Fever Hydrocodone Bitart/Acetaminophen 1 tab 09/17/23 09:27 09/19/23 19:37 Hydrocodone/Acetaminophen (*Crx) 7.5-325 Mg Tablet PO 1 tab Q4H PRN Administration Pain Rated 4-6 Aspirin 81 mg 09/18/23 09:00 09/22/23 10:08 Aspirin 81 Mg Enteric Tablet PO Not Given DAILY LEAH Atorvastatin Calcium 40 mg 09/18/23 09:00 09/22/23 10:07 Atorvastatin 40 Mg Tablet PO Not Given DAILY LEAH Calcium Carbonate 400 mg 09/18/23 11:04 09/19/23 01:35 Calcium Carbonate (Tums) 500 Mg (200 Mg Elemental) PO 400 mg Q6H PRN Administration Indigestion Carbamazepine 200 mg 09/21/23 06:30 09/22/23 14:00 Carbamazepine 200 Mg Tablet PO Not Given Q8HR LEAH Carvedilol 3.125 mg 09/17/23 21:00 09/22/23 10:08 Carvedilol 3.125 Mg Tablet PO Not Given Q12HR LEAH Dextrose 12.5 gm 09/17/23 06:25 Dextrose 50% 25 Gm/50 Ml Syringe IV PUSH PRN PRN Hypoglycemia Protocol Fenofibrate 160 mg 09/18/23 09:00 09/22/23 10:07 Fenofibrate 160 Mg Tablet PO Not Given DAILY LEAH Fentanyl Citrate 25 mcg 09/21/23 16:02 Fentanyl Citrate Inj
[2023-09-22 13:57] LABS: INR 1.3; Prothrombin Time 16.9 Seconds (11.1-14.7)
[2023-09-22 13:58] LABS: Partial Thromboplastin Time 49.4 Seconds (22.3-36.8)
[2023-09-22 15:21] LABS: Appearance Urine Clear (Clear); Bacteria Urine None Seen /hpf; Bilirubin Urine Negative (Negative); Blood Urine Non-Hemolyzed Trace (Negative); Color Urine Yellow (Yellow); Glucose Urine UA 3+ mg/dL (Negative); Ketones Urine 2+ mg/dL (Negative); Leukocyte Esterase Ur Negative LEU/UL (Negative); Nitrate Urine Negative (Negative); Protein Urine Trace mg/dL (Negative); RBC Urine 0-2 /hpf (0-2); Specific Grav Ur 1.024 (1.001-1.035); Squamous Epithelial Cell Urine None Seen /hpf (Few); Urobilinogen Urine 0.2 mg/dL (<2.0); WBC Urine 0-5 /hpf (0-3); pH Urine 5.5 (5.0-9.0)
[2023-09-22 15:40] LABS: Add Urine Microscopic? YES
[2023-09-22 15:51] LABS: Glucose CSF 94 mg/dL (40-70); Total Protein CSF 38 mg/dL (12-60)
[2023-09-22 16:22] LABS: Appearance CSF Clear (Clear); CSF source CSF; Color CSF Colorless (Colorless); Lymphocytes CSF 90 % (40-80); Nucleated Cell CSF 1 /uL (0-5); Red Blood Cell CSF 60 (0-2)
[2023-09-22 16:23] LABS: Monocytes CSF 3 % (15-45); Neutrophils CSF 7 % (0-6)
[2023-09-22 16:41] LABS: Glucose Point of Care 137 mg/dl (65-105)
[2023-09-22] MEDS: AMPICILLIN 2 GM/NS 100 ML 2 GM/100 ML BAG IVPB ×2 (18:11→20:20)
--- NOTE | 2023-09-22 18:11 | WPDNEUROPN ---
Progress Note: A&P Assessment and Plan (1) Seizure disorder: Code(s): G40.909 - Epilepsy, unspecified, not intractable, without status epilepticus Status: Acute (2) Coronary artery disease: Code(s): I25.10 - Atherosclerotic heart disease of [place] coronary artery without angina pectoris Status: Chronic (3) Type 2 diabetes mellitus: Qualifiers: Diabetes mellitus manager long term care insulin use: with manager long term care use Diabetes mellitus complication status: with circulatory complication Diabetes mellitus complication detail: with other circulatory complications Qualified Code(s): E11.59 - Type 2 diabetes mellitus with other circulatory complications; Z79.4 - intermediate teacher (current) use of insulin Code(s): E11.9 - Type 2 diabetes mellitus without complications Status: Acute (4) Delirium: Code(s): R41.0 - Disorientation, unspecified Status: Acute (5) Chronic obstructive pulmonary disease: Qualifiers: COPD type: unspecified COPD Qualified Code(s): J44.9 - Chronic obstructive pulmonary disease, unspecified Code(s): J44.9 - Chronic obstructive pulmonary disease, unspecified Status: Acute Plan I advised the nursing staff find out of if he there is any history of alcoholism. Dramatic treatment of the underlying sepsis and follow-up the results of the spinal fluid. So far the protein and WBC count in the spinal fluid appeared to within normal range. I doubt this to be encephalitis or meningitis. White cell count was very high at 18.2. I suspect sepsis as the predominantly culprit for the encephalopathy. The differential diagnosis in case there is any history of alcoholism would be with the alcohol withdrawal syndrome, but we do not have any clear history such as this. Subjective Date/time seen: 09/22/23 18:11 Interval history: History of surgery on the right great toe on 09/19/2023 and thereafter he was the somewhat unresponsive and now very confused. The patient rises from the bed and looks around the right side but did not make any eye contact or talk to anyone. There is history of for seizure disorder however details were not available. He is on Tegretol 200 mg 3 times a day. His is disabled unable to come to visit. She is trying to convince her son visits him but apparently this has not been successful yet. 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 He also smokes heavily. He has history of diabetes mellitus and coronary artery bypass grafting. 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 Spinal tap has been done the primary findings are unremarkable. Review of Systems Review of Systems: ROS unobtainable: Yes unobtainable due to mental status Exam Narrative: Awake but confused does not make any verbalization no respond to questions asked. Difficult evaluation. No posturing was noted. He does tend to moving both sides and had no apparent facial asymmetry. Eye movements appear to be in all directions during the course of observation. Objective Data Vital Signs Vital Signs: Vital Signs - 24 hr 09/21/23 21:40 09/21/23 21:35 09/21/23 22:57 Temperature 37.1 C Pulse Rate 88 89 Respiratory Rate 28 H 20 Blood Pressure 142/78 H Pulse Oximetry 98 Oxygen Delivery 09/22/23 04:45 09/22/23 06:57 09/22/23 08:10 Temperature 36.8 C 37.9 C H 37.0 C Pulse Rate 83 81 86 Respiratory Rate 22 H 20 12 Blood Pressure 148/72 H 151/73 H 162/80 H Pulse Oximetry 96 97 97 Oxygen Delivery Room Air 09/22/23 15:09 09/22/23 15:11 09/22/23 15:14 Temperature 37.0 C Pulse Rate 95 88 88 Respiratory Rate 20 20 20 Blood Pressure 140/82 140/73 154/86 H Pulse Oximetry 92 94 97 Oxygen Delivery Intake/Output Intake/Output: Intake & Outpu
[2023-09-22 19:51] LABS: Glucose Point of Care 126 mg/dl (65-105)
--- NOTE | 2023-09-22 20:47 | PCRCNOTE ---
Pt very confused and tries to climb out of bed. Unable to do Vest therapy at this time.
[2023-09-22] MEDS: POTASSIUM PHOS,M-BASIC-D-BASIC 20 MMOL in SODIUM CHLORIDE 0.9% IV 250 ML 64.17 MMOL IVPB (21:05)
[2023-09-22 23:32] LABS: Beta-Hydroxybutyrate/Acetoacetate 4.88 mmol/L (0.02-0.27)
[2023-09-23] MEDS: MORPHINE SULFATE (*CRX) 4 MG/ML INJ IV PUSH (00:18)
[2023-09-23] MEDS: AMPICILLIN 2 GM/NS 100 ML 2 GM/100 ML BAG IVPB ×5 (01:10→20:46)
[2023-09-23] MEDS: VANCOMYCIN 1,750 MG/NS 500 ML 1,750 MG/500 ML BAG 250 MG IVPB ×2 (02:00→21:46)
[2023-09-23 05:41] VITALS: BP 137/71; PULSE 84; RESP 24; TEMP 36.7; O2SAT 95
[2023-09-23] MEDS: CEFEPIME 2 GM/NS 50 ML 2 GM/50 ML BAG IVPB ×2 (06:33→20:36)
[2023-09-23 07:22] LABS: Alanine Aminotransferase 17 U/L (6-50); Albumin Level 3.6 g/dL (3.5-5.1); Alkaline Phosphatase 65 U/L (38-126); Anion Gap 12 mmol/L (4-12); Aspartate Amino Transferase 25 U/L (17-59); Bilirubin,Total 0.6 mg/dL (0.2-1.3); Blood Urea Nitrogen 20 mg/dL (9-20); Calcium 8.8 mg/dL (8.4-10.2); Carbon Dioxide 19 mmol/L (22-30); Chloride 112 mmol/L (98-107); Estimated CRCL calculation 103 ml/min; Estimated Glomerular Filt Rate > 60; Glucose 121 mg/dL (65-110); Magnesium 2.4 mg/dL (1.6-2.3); Potassium 3.5 mmol/L (3.4-5.0); Sodium 143 mmol/L (137-145)
[2023-09-23 07:28] LABS: Glucose Point of Care 124 mg/dl (65-105)
[2023-09-23 08:00] VITALS: PULSE 66; RESP 19; O2SAT 90
--- NOTE | 2023-09-23 08:06 | WPDANESPN ---
Anes - Prog Note Post-Op Date/Time: 09/23/23 08:06 Cardiovascular status: normal Respiratory status: normal Airway patency: baseline Mental status: other (Patient not alert and oriented, sitter at bedside) Post-Op hydration status: normal Vital Signs: Last Vital Signs Temp 36.7 C 09/23/23 05:41 Pulse 84 09/23/23 05:41 Resp 24 H 09/23/23 05:41 BP 137/71 09/23/23 05:41 Pulse Ox 95 09/23/23 05:41 O2 Del Method Room Air 09/22/23 20:15 O2 Flow Rate 10 09/19/23 10:30 Pain Score (VAS): No nonverbal signs of pain present at this time. I/O: Intake & Output 09/22/23 09/23/23 09/23/23 23:59 07:59 15:59 Intake Total 250 700 Output Total 900 Balance 250 -200 Laboratory Tests 09/23/23 06:53 09/22/23 09/22/23 09/22/23 08:38 08:39 09:13 WBC 18.1 H RBC 3.48 L Hgb 10.7 L Hct 32.2 L MCV 92.5 MCH 30.7 MCHC 33.2 RDW 15.1 H Plt Count 564 H MPV 10.2 Immature Gran % (Auto) 1.8 H Neut % (Auto) 81.3 H Lymph % (Auto) 7.5 L Fleming % (Auto) 9.0 H Eos % (Auto) 0.1 Baso % (Auto) 0.3 Lymph # (Auto) 1.36 Fleming # (Auto) 1.6 H Eos # (Auto) 0.0 Baso # (Auto) 0.1 Abs Immat Gran (auto) 0.33 H Absolute Neuts (auto) 14.7 H Absolute Nucleated RBC 0.000 Nucleated RBC % 0.0 PT INR APTT Puncture Site Left radial ABG pH 7.461 H ABG pCO2 27.4 L ABG pO2 75.2 L ABG PO2/FiO2 Ratio 3.58 ABG HCO3 19.1 L ABG O2 Saturation 96.0 ABG O2 Content 15.9 L ABG Base Excess -3.5 A-a Gradient 41.7 Oxyhemoglobin 94.6 Total Hemoglobin 11.9 L O2 Delivery Device Not Reportable O2 Liters/Min Not Reportable FiO2 21 Sodium 142 142 Potassium 3.9 4.0 Chloride 111 H 111 H Carbon Dioxide 19 L 18 L Anion Gap 12 13 H BUN 21 H 21 H Creatinine 0.80 0.80 Estim Creat Clear Calc 91 91 Estimated GFR > 60 > 60 Glucose 132 H 131 H POC Capillary Glucose Lactic Acid 0.9 Calcium 8.9 9.0 Phosphorus 1.4 L Magnesium 2.3 Total Bilirubin 0.5 AST 21 ALT 17 Alkaline Phosphatase 68 Total Protein 7.0 Albumin 3.5 Beta-Hydroxybutyrate/Acetoacetate 4.88 H Procalcitonin 0.1 Urine Color Urine Appearance Urine pH Ur Specific [place] Urine Protein Urine Glucose (UA) Urine Ketones Ur Blood (Man) Urine Nitrate Urine Bilirubin Urine Urobilinogen Ur Leukocyte Esterase Urine RBC Urine WBC Ur Squamous Epith Cells Urine Bacteria Urine Casts Fluid EBV Source CSF Source CSF Appearance CSF Color CSF RBC CSF Tot Nucleated Cells CSF Neutrophils CSF Lymphocytes CSF Monocytes CSF Glucose CSF Lactic Acid CSF Total Protein CSF VDRL CSF Lyme IgG Antibody CSF Lyme IgG (Immblot) CSF Lyme IgM Antibody CSF Lyme IgM (Immblot) CSF EBV DNA (PCR) CSF Herpes I DNA (PCR) CSF Herpes II DNA (PCR) Vancomycin Trough 12.1 Lyme IgG Bands Present Lyme IgM Bands Present HSV (PCR) Source VZV IgG Antibody VZV IgM Antibody 09/22/23 09/22/23 09/22/23 12:00 13:29 14:02 WBC RBC Hgb Hct MCV MCH MCHC RDW Plt Count MPV Immature Gran % (Auto) Neut % (Auto) Lymph % (Auto) Fleming % (Auto) Eos % (Auto) Baso % (Auto) Lymph # (Auto) Fleming # (Auto) Eos # (Auto) Baso # (Auto) Abs Immat Gran (auto) Absolute Neuts (auto) Absolute Nucleated RBC Nucleated RBC % PT 16.9 H INR 1.3 APTT 49.4 H Puncture Site ABG pH ABG pCO2 ABG pO2 ABG PO2/FiO2 Ratio ABG HCO3 ABG O2 Saturation ABG O2 Content ABG Base Excess A-a Gradient Oxyhemoglobin Total Hemoglobin O2 Delivery Device O2 Liters/Min FiO2 Sodium 143 Potassium 3.9 Chloride 110 H Carbon Dioxide 21 L Anion Gap 12 BUN 20 Creatinine 0.80
[2023-09-23 08:09] LABS: Procalcitonin 0.1 ng/mL
--- NOTE | 2023-09-23 08:33 | PM.IMPN ---
Progress Note: A&P Assessment and Plan (1) Hypokalemia: Code(s): E87.6 - Hypokalemia Status: Acute (2) Osteomyelitis of toe of right foot: Code(s): M86.9 - Osteomyelitis, unspecified Status: Acute (3) Amputation of toe of right foot: Code(s): S98.131A - Complete traumatic amputation of one right lesser toe, initial encounter Status: Acute (4) Type 2 diabetes mellitus with right diabetic foot infection: Code(s): E11.628 - Type 2 diabetes mellitus with other skin complications; L08.9 - Local infection of the skin and subcutaneous tissue, unspecified Status: Acute (5) Cellulitis of right lower extremity: Code(s): L03.115 - Cellulitis of right lower limb Status: Acute (6) Sepsis: Code(s): A41.9 - Sepsis, unspecified organism Status: Acute (7) Coronary artery disease: Code(s): I25.10 - Atherosclerotic heart disease of [place] coronary artery without angina pectoris Status: Chronic (8) Chronic obstructive pulmonary disease: Qualifiers: COPD type: unspecified COPD Qualified Code(s): J44.9 - Chronic obstructive pulmonary disease, unspecified Code(s): J44.9 - Chronic obstructive pulmonary disease, unspecified Status: Acute (9) Metabolic acidosis: Code(s): E87.20 - Acidosis, unspecified Status: Acute Plan Cellulitis, nonhealing ulcer of right heel Patient has been having a nonhealing ulcer of right heel more than 2 weeks, daily cellulitis in past few days, xr of right foot unremarkable Recent wound culture grows a staphylococcal aureus, Pseudomonas aeruginosa, susceptible to cefepime and vancomycin Continue cefepime and vancomycin IV Consult Wound Care, orthopedic surgeon Status post debridement day 1, on Hemovac 09/19, scant sanguinous fluid drained out Wound culture on 09/18 grows mixed bacteria Sepsis Patient has leukocytosis, white blood cell 26.3K with a left shift, tachycardia tachypnea, meeting criteria of sepsis Follow-up wound culture, Start fluid resuscitation now afeb, leukocytosis persists 09/21: fever 100.2 WBC 18K, chest x-ray shows minimal congestion, UA unremarkable, repeated blood culture pending 09/22: Cerebral fluid culture negative of bacteria, leukocytosis 20,000 Follow-up CT chest, abdomen pelvis, need to rule out possible source of sepsis in chest abdomen pelvis Altered mental status Patient somnolent, arousable, moving all extremities Patient is afebrile, no hypoglycemia Patient was agitated when patient was sent back to patient from PACU. Patient will work closely with a sitter. And today patient was somnolent, but not agitated, suspecting postop delirium Order CT head of brain: no acute issues Brain MRI shows no acute issues Neuro check Appreciate neurology's consultation, consider possible postop encephalopathy 4:4; given fever and persisted confusion, request lumbar puncture today, studies of CSF pending. pt does not have nausea vomiting Continue vancomycin cefepime Flagyl add ampicillin 2 g q.4 hours IV waiting for neurologist evaluation 09/22. CSF culture pending, Gram stain shows no bacteria, rest of CSF study pending. Not sure if patient has alcohol abuse history. Start folic acid thiamine IV. Continue current antibiotics, start acyclovir IV per neurologist recommendation [place], hypokalemia Follow-up urinalysis, replete potassium chloride Fluid resuscitation Avoid nephrotoxic patient Follow-up BMP, Cr down to 1.0 resolves Metabolic acidosis ABG suggests decompensated metabolic acidosis, Bicarb P 11, is trending down gradually Lactic acid within normal limit, renal function within normal limit ? Possible lactic acidosis due to medications do general anaesthesia s/w sodium bicarbonate 150 mg went 50 mL/hour Follow-up BMP q.6 hours Consult web production designer 09/21: Sodium bicarbonate 15 a.m., continue sodium bicarbonate IV drip, 09/22: Bicarbonate level is improving, disc
[2023-09-23 08:56] LABS: Basophils Absolute Auto 0.1 K/mm3 (0.0-0.1); Basophils Percent Auto 0.4 % (0.2-1.2); Eosinophils Percent Auto 0.1 % (0-4.4); Hemoglobin 10.7 g/dL (14.0-18.0); Immature Granulocyte Absolute 0.45 K/mm3 (0.00-0.031); Immature Granulocyte Percent A 2.2 % (0-0.5); Lymphocytes Absolute Auto 1.77 K/mm3 (0.9-3.2); Lymphocytes Percent Auto 8.8 % (18.3-44.2); Mean Corpuscular HGB Conc 32.4 g/dl (32-36); Mean Corpuscular Hemoglobin 30.2 pg (26-34); Mean Corpuscular Volume 93.2 fl (80-100); Mean Platelet Volume 10.2 fl (7.4-10.4); Monocytes Absolute Auto 2.4 K/mm3 (0.1-0.6); Monocytes Percent Auto 11.8 % (2.6-8.5); Neutrophils Absolute Auto 15.4 K/mm3 (1.3-6.7); Neutrophils Percent Auto 76.7 % (45.5-73.1); Platelet Count Result 565 k/mm3 (150-375); Red Blood Count 3.54 M/mm3 (4.6-6.20); White Blood Count 20.1 K/mm3 (4.5-10.0)
--- NOTE | 2023-09-23 09:25 | PCOTNOTE ---
Attempted to see Patient at this time. Per RN and MD at this time, Patient is unarousable, not appropriate for services at this time. Patient will be getting testing done.
[2023-09-23] MEDS: FOLIC ACID 1 MG/0.2 ML INJ IV PUSH (09:36)
[2023-09-23] MEDS: THIAMINE HCL 200 MG/2 ML VIAL 100 MG IV PUSH (09:36)
--- NOTE | 2023-09-23 09:47 | PM.PNORT ---
Progress Note: A&P Assessment and Plan (1) Metabolic acidosis: Code(s): E87.20 - Acidosis, unspecified Status: Acute (2) Encephalopathy: Code(s): G93.40 - Encephalopathy, unspecified Status: Acute Assessment and Plan: Continues to be nonverbal and unresponsive. No purposeful extremity movement. Medical team planning EEG today. Nothing significant on workup to date including lumbar puncture, brain MRI and CT scan, urinalysis. Wound culture growing peptostreptococcus. Other cultures pending. Altered mental status noted prior to surgery September 18. 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 Ulcer stable at this point with no signs of active infection. Continue IV antibiotics. Continue wound VAC. Will follow. Subjective Subjective Date/Time Seen: 09/23/23 09:47 Post Op day: 4 Principal diagnosis: Right diabetic foot ulcer with infection Interval history: patient in bed. Eyes open but no response to verbal stimuli. Nonverbal. No purposeful extremity movement. Exam Const: General: lethargic and average body habitus; No combative or diaphoretic Resp: Effort & Inspection: normal respiratory effort Skin: Wounds: wounds noted (RIGHT Medial Heel Wound ) Extrem: Other: Wound VAC In place right heel. Dressing clean. Remaining toes with capillary refill. Wound VAC dressing removed. Right heel ulcer clean, no signs of purulence or drainage. Viable surrounding tissue. Objective Data Vital Signs Vital Signs: Vital Signs - 24 hr 09/22/23 15:09 09/22/23 15:11 09/22/23 15:14 Temperature 98.6 F Pulse Rate 95 88 88 Respiratory Rate 20 20 20 Blood Pressure 140/82 140/73 154/86 H Pulse Oximetry 92 94 97 Oxygen Delivery 09/22/23 20:53 09/22/23 22:04 09/22/23 20:15 Temperature 98.4 F Pulse Rate 78 78 Respiratory Rate 20 Blood Pressure 151/75 H Pulse Oximetry 97 Oxygen Delivery Room Air 09/23/23 05:41 Temperature 98.0 F Pulse Rate 84 Respiratory Rate 24 H Blood Pressure 137/71 Pulse Oximetry 95 Oxygen Delivery Intake/Output Intake/Output: Intake & Output 09/20/23 09/21/23 09/22/23 09/23/23 23:59 23:59 23:59 23:59 Intake Total 928 43 7374 700 Output Total 900 Balance 005 95 9549 -200 Meds/Results Medications: Active Medications Generic Name Dose Route Start Last Admin Trade Name Freq PRN Reason Stop Dose Admin Acetaminophen 650 mg 09/17/23 06:25 09/17/23 09:32 Acetaminophen 325 Mg Tablet PO 650 mg Q4H PRN Administration Mild Pain (1-3) or Fever Hydrocodone Bitart/Acetaminophen 1 tab 09/17/23 09:27 09/19/23 19:37 Hydrocodone/Acetaminophen (*Crx) 7.5-325 Mg Tablet PO 1 tab Q4H PRN Administration Pain Rated 4-6 Aspirin 81 mg 09/18/23 09:00 09/23/23 07:57 Aspirin 81 Mg Enteric Tablet PO Not Given DAILY [facility] Atorvastatin Calcium 40 mg 09/18/23 09:00 09/23/23 07:57 Atorvastatin 40 Mg Tablet PO Not Given DAILY [facility] Calcium Carbonate 400 mg 09/18/23 11:04 09/19/23 01:35 Calcium Carbonate (Tums) 500 Mg (200 Mg Elemental) PO 400 mg Q6H PRN Administration Indigestion Carbamazepine 200 mg 09/21/23 06:30 09/23/23 05:48 Carbamazepine 200 Mg Tablet PO Not Given Q8HR [facility] Carvedilol 3.125 mg 09/17/23 21:00 09/23/23 07:57 Carvedilol 3.125 Mg Tablet PO Not Given Q12HR [facility] Dextrose 12.5 gm 09/17/23 06:25 Dextrose 50% 25 Gm/50 Ml Syringe IV PUSH P
--- NOTE | 2023-09-23 10:15 | WPDNEUROPN ---
Progress Note: A&P Assessment and Plan (1) Encephalopathy: Code(s): G93.40 - Encephalopathy, unspecified Status: Acute (2) Leukocytosis: Code(s): D72.829 - Elevated white blood cell count, unspecified Status: Acute Plan Mr. Qiu is a 63 year old male with a history of diabetes, prior stroke, ILANA, peripheral artery disease, BPH, HTN, COPD, epilepsy. He underwent debridement of R foot wound on 09/19/23 with general anesthesia. He has had MRI brain which did not show any acute changes, LP with CSF evaluation with only cell count of 1 and normal protein/negative culture, and routine EEG which showed nonspecific diffuse slowing. Etiology is unclear but concern is infectious. His WBC is uptrending again (20 today). Blood cultures pending. I have low suspicion for meningitic process given CSF results. However, considering lack of improvement with triple antibiotics, and persistent encephalopathy, would empirically start acyclovir as HSV PCR is still pending. Would also recommend discontinuation of any sedating medications such as current PRN pain medications ordered. Subjective Date/time seen: 09/23/23 10:15 Interval history: Mr. Qiu is a 63 year old male with a history of diabetes, prior stroke, ILANA, peripheral artery disease, BPH, HTN, COPD, epilepsy. He underwent debridement of R foot wound on 09/19/23 with general anesthesia. Since then he has been kathie confused. Work-up so far includes MRI of the brain which shows an old infarct in the R thalamic and occpital regions as well as bilateral cerebellar. Spinal tap has been done -- CSF cell count only 1 and normal protein. CSF culture negative for organism. Blood culture has not grown anything yet. He is currently being treated for presumed underlying infection with ampicillin, cefepime, vancomycin. I also see some PRN pain medications listed including fentanyl, hydrocodone, and oxycodone. He has received morphine PRN the past few days. Review of Systems Review of Systems: ROS unobtainable: Yes unobtainable due to mental status Exam Narrative: Awake but confused does not make any verbalization, does not follow commands or respond to any questions asked. He appears to be moving all extremities equally against gravity, trying to get out of bed. Gaze appears to be conjugate, face appears to be symmetric. Const: General: comfortable Eyes: Pupils: Equal, round and reactive pupils present Resp: Effort & Inspection: normal respiratory effort Skin: General skin exam: normal color Extrem: Other: R foot bandaged Objective Data Vital Signs Vital Signs: Vital Signs - 24 hr 09/22/23 15:09 09/22/23 15:11 09/22/23 15:14 Temperature 37.0 C Pulse Rate 95 88 88 Respiratory Rate 20 20 20 Blood Pressure 140/82 140/73 154/86 H Pulse Oximetry 92 94 97 Oxygen Delivery 09/22/23 20:53 09/22/23 22:04 09/22/23 20:15 Temperature 36.9 C Pulse Rate 78 78 Respiratory Rate 20 Blood Pressure 151/75 H Pulse Oximetry 97 Oxygen Delivery Room Air 09/23/23 05:41 Temperature 36.7 C Pulse Rate 84 Respiratory Rate 24 H Blood Pressure 137/71 Pulse Oximetry 95 Oxygen Delivery Intake/Output Intake/Output: Intake & Output 09/20/23 09/21/23 09/22/23 09/23/23 23:59 23:59 23:59 23:59 Intake Total 764 88 2602 700 Output Total 900 Balance 796 52 5628 -200 Meds/Results Medications: Active Medications Generic Name Dose Route Start Last Admin Trade Name Freq PRN Reason Stop Dose Admin Acetaminophen 650 mg 09/17/23 06:25 09/17/23 09:32 Acetaminophen 325 Mg Tablet PO 650 mg Q4H PRN Administration Mild Pain (1-3) or Fever Hydrocodone Bitart/Acetaminophen 1 tab 09/17/23 09:27 09/19/23 19:37 Hydrocodone/Acetaminophen (*Crx) 7.5-325 Mg Tablet PO 1 tab Q4H PRN Administration Pain Rated 4-6 Aspirin 81 mg 09/18/23 09:00 09/23/23 07:57 Aspirin 81 Mg Enteric Tablet PO Not Given DAILY [facility]
--- NOTE | 2023-09-23 10:32 | P.PNNP_ITS ---
Progress Note: A&P Assessment and Plan (1) Metabolic acidosis: Code(s): E87.20 - Acidosis, unspecified Status: Acute Assessment and Plan: * resolving * etiology not clear... * + gap noted initially * no history of intoxication * lactic acid normal * no evidence of DKA * however elevated BHOB -- due to poor/limited oral intake * anesthesia (?) and/or infection (?) contributing factors * s/p bicarb fluids to compensate * follow repeat labs (2) Diabetic ulcer of right heel: Qualifiers: Diabetes mellitus type: type 2 Non-pressure ulcer stage: with necrosis of muscle Qualified Code(s): E11.621 - Type 2 diabetes mellitus with foot ulcer; L97.413 - Non-pressure chronic ulcer of right heel and midfoot with necrosis of muscle Code(s): E11.621 - Type 2 diabetes mellitus with foot ulcer; L97.419 - Non-pressure chronic ulcer of right heel and midfoot with unspecified severity Status: Acute Assessment and Plan: * s/p excisional debridement on 09/19/23 * on antibiotics * local wound care * may require further surgical intervention * Orthopedics following (3) Altered mental status: Code(s): R41.82 - Altered mental status, unspecified Status: Acute Assessment and Plan: * etiology not clear * Neurology following * imaging to date noted * CSF/LP done -- cultures pending * on antibiotics * continue supportive therapy Will continue to follow Subjective Date/time seen: 09/23/23 10:32 Interval history: Follow-up for metabolic acidosis. Mentation seems about the same as when I saw him yesterday -- awake but not responding to questions or simple commands; s/p lumbar puncture yesterday with findings noted; acidosis is better s/p bicarbonate IVFs (but has since been discontinued); no apparent distress. Exam Narrative: General: ill appearing male - awake but non-communication/nonverbal Heart: normal S1 and S2; no rub Lungs: clear to auscultation Abdomen: soft, nontender, nondistended, positive bowel sounds Extremities: no cyanosis or clubbing; no edema Skin: right heel wound vac noted Objective Data Vital Signs Vital Signs: Vital Signs Temp Pulse Resp BP Pulse Ox O2 Del Method 09/23/23 05:41 98.0 F 84 24 H 137/71 95 09/22/23 20:15 Room Air 04/04/24 22:04 78 09/22/23 20:53 98.4 F 78 20 151/75 H 97 09/22/23 15:14 98.6 F 88 20 154/86 H 97 09/22/23 15:11 88 20 140/73 94 09/22/23 15:09 95 20 140/82 92 Intake/Output Intake/Output: Intake & Output 09/20/23 09/21/23 09/22/23 09/23/23 23:59 23:59 23:59 23:59 Intake Total 144 92 7225 700 Output Total 900 Balance 483 11 9164 -200 Meds/Results Medications: Active Medications Generic Name Dose Route Start Last Admin Trade Name Freq PRN Reason Stop Dose Admin Acetaminophen 650 mg 09/17/23 06:25 09/17/23 09:32 Acetaminophen 325 Mg Tablet PO 650 mg Q4H PRN Administration Mild Pain (1-3) or Fever Hydrocodone Bitart/Acetaminophen 1 tab 09/17/23 09:27 09/19/23 19:37 Hydrocodone/Acetaminophen (*Crx) 7.5-325 Mg Tablet PO 1 tab Q4H PRN Administration
--- NOTE | 2023-09-23 10:32 | PM.PNNEP ---
Progress Note: A&P Assessment and Plan (1) Metabolic acidosis: Code(s): E87.20 - Acidosis, unspecified Status: Acute Assessment and Plan: resolving etiology not clear... 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 Code(s): E11.621 - Type 2 diabetes mellitus with foot ulcer; L97.419 - Non-pressure chronic ulcer of right heel and midfoot with unspecified severity Status: Acute Assessment and Plan: s/p excisional debridement on 09/19/23 on antibiotics local wound care may require further surgical intervention Orthopedics following (3) Altered mental status: Code(s): R41.82 - Altered mental status, unspecified Status: Acute Assessment and Plan: etiology not clear Neurology following imaging to date noted CSF/LP done -- cultures pending on antibiotics continue supportive therapy Will continue to follow Subjective Date/time seen: 09/23/23 10:32 Interval history: Follow-up for metabolic acidosis. Mentation seems about the same as when I saw him yesterday -- awake but not responding to questions or simple commands; s/p lumbar puncture yesterday with findings noted; acidosis is better s/p bicarbonate IVFs (but has since been discontinued); no apparent distress. Exam Narrative: General: ill appearing male - awake but non-communication/nonverbal Heart: normal S1 and S2; no rub Lungs: clear to auscultation Abdomen: soft, nontender, nondistended, positive bowel sounds Extremities: no cyanosis or clubbing; no edema Skin: right heel wound vac noted Objective Data Vital Signs Vital Signs: Vital Signs Temp Pulse Resp BP Pulse Ox O2 Del Method 09/23/23 05:41 98.0 F 84 24 H 137/71 95 09/22/23 20:15 Room Air 09/22/23 22:04 78 09/22/23 20:53 98.4 F 78 20 151/75 H 97 09/22/23 15:14 98.6 F 88 20 154/86 H 97 09/22/23 15:11 88 20 140/73 94 09/22/23 15:09 95 20 140/82 92 Intake/Output Intake/Output: Intake & Output 09/20/23 09/21/23 09/22/23 09/23/23 23:59 23:59 23:59 23:59 Intake Total 045 49 0870 700 Output Total 900 Balance 920 08 3322 -200 Meds/Results Medications: Active Medications Generic Name Dose Route Start Last Admin Trade Name Freq PRN Reason Stop Dose Admin Acetaminophen 650 mg 09/17/23 06:25 09/17/23 09:32 Acetaminophen 325 Mg Tablet PO 650 mg Q4H PRN Administration Mild Pain (1-3) or Fever Hydrocodone Bitart/Acetaminophen 1 tab 09/17/23 09:27 09/19/23 19:37 Hydrocodone/Acetaminophen (*Crx) 7.5-325 Mg Tablet PO 1 tab Q4H PRN Administration Pain Rated 4-6 Aspirin 81 mg 09/18/23 09:00 09/23/23 07:57 Aspirin 81 Mg Enteric Tablet PO Not Given DAILY [facility] Atorvastatin Calcium 40 mg 09/18/23 09:00 09/23/23 07:57 Atorvastatin 40 Mg Tablet PO Not Given DAILY [facility] Calcium Carbonate 400 mg 09/18/23 11:04 09/19/23 01:35 Calcium Carbonate (Tums) 500 Mg (200 Mg Elemental) PO 400 mg Q6H PRN Administration Indigestion Carbamazepine 200 mg 09/21/23 06:30 09/23/23 05:48 Carbamazepine 200 Mg Tablet PO Not Given Q8HR [facility] Carvedilol 3.125 mg 09/17/23 21:00 09/23/23 07:57 Carvedilol 3.125 Mg Tablet PO Not Given Q12HR [facility] Dextrose 12.5 gm 09/17/23 06:25 Dextrose 50% 25 Gm/50 Ml Syringe IV PUSH PRN PRN Hypoglycemia Protocol Fenofibrate 160 mg 03
[2023-09-23 11:25] LABS: Glucose Point of Care 142 mg/dl (65-105)
[2023-09-23] MEDS: NALOXONE HCL 0.4 MG/ML VIAL IV PUSH (11:32)
[2023-09-23] MEDS: POTASSIUM PHOS,M-BASIC-D-BASIC 20 MMOL in SODIUM CHLORIDE 0.9% IV 250 ML 64.17 MMOL IVPB (11:34)
--- NOTE | 2023-09-23 11:44 | P.NEURO_ITS ---
Neurology EEG Report General Information Date of Study: 09/23/23 TEST Routine EEG DIAGNOSIS Altered mental status CONDITION OF RECORDING Awake, confused, trying to get out of bed EEG NUMBER [id number] CLINICAL HISTORY Patient underwent surgerical debridement of R foot on 09/19/23. Since the procedur e he has been altered. EEG DESCRIPTION The recording is continuous. The background consists of theta and delta range rhythm. No posterior dominant rhythm is observed. Well formed anterior-posterior gradient is also not observed. Normal sleep architecture not present during the recording. No epileptiform discharges or electrographic seizures noted. IMPRESSION This is an abnormal routine EEG due to the presence of diffuse slowing of background. These findings can be seen in the setting of encephalopathy due to unspecified etiology. No electrographic seizures were noted. Clinical correlation recommended.
[2023-09-23 13:55] VITALS: BP 145/54; PULSE 80; RESP 22; TEMP 37.8; O2SAT 93
[2023-09-23 14:08] VITALS: BP 144/78; PULSE 66; RESP 19; TEMP 37.1; O2SAT 90
[2023-09-23 16:34] LABS: Glucose Point of Care 134 mg/dl (65-105)
[2023-09-23 18:00] LABS: Amphetamine Screen Urine Negative (Negative); Barbiturate Screen Urine Negative (Negative); Benzodiazepines Screen Urine Negative (Negative); Cannabinoid Screen Urine Negative (Negative); Cocaine Screen Urine Negative (Negative); Methadone Screen Urine Negative (Negative); Opiate Screen Urine Positive (Negative); Phencyclidine Screen Urine Negative (Negative)
[2023-09-23 21:33] LABS: Glucose Point of Care 138 mg/dl (65-105)
[2023-09-23 21:51] VITALS: BP 133/59; PULSE 81; RESP 22; TEMP 37; O2SAT 94
[2023-09-24] MEDS: AMPICILLIN 2 GM/NS 100 ML 2 GM/100 ML BAG IVPB ×4 (00:03→12:43)
[2023-09-24] MEDS: CEFEPIME 2 GM/NS 50 ML 2 GM/50 ML BAG IVPB ×2 (05:06→18:18)
[2023-09-24 05:41] LABS: Basophils Absolute Auto 0.1 K/mm3 (0.0-0.1); Basophils Percent Auto 0.4 % (0.2-1.2); Eosinophils Percent Auto 0.2 % (0-4.4); Hematocrit 34.5 % (42.0-52.0); Immature Granulocyte Absolute 0.38 K/mm3 (0.00-0.031); Lymphocytes Absolute Auto 2.17 K/mm3 (0.9-3.2); Lymphocytes Percent Auto 11.2 % (18.3-44.2); Mean Corpuscular HGB Conc 31.9 g/dl (32-36); Mean Corpuscular Hemoglobin 29.6 pg (26-34); Mean Platelet Volume 10.3 fl (7.4-10.4); Monocytes Absolute Auto 2.4 K/mm3 (0.1-0.6); Monocytes Percent Auto 12.3 % (2.6-8.5); Neutrophils Absolute Auto 14.3 K/mm3 (1.3-6.7); Neutrophils Percent Auto 73.9 % (45.5-73.1); Platelet Count Result 517 k/mm3 (150-375); Red Blood Count 3.71 M/mm3 (4.6-6.20); Red Cell Distribution Width 15.3 % (11.5-14.5); White Blood Count 19.3 K/mm3 (4.5-10.0)
[2023-09-24 05:56] LABS: Alanine Aminotransferase 21 U/L (6-50); Albumin Level 3.6 g/dL (3.5-5.1); Alkaline Phosphatase 68 U/L (38-126); Anion Gap 7 mmol/L (4-12); Aspartate Amino Transferase 35 U/L (17-59); Bilirubin,Total 0.6 mg/dL (0.2-1.3); Blood Urea Nitrogen 19 mg/dL (9-20); Calcium 8.9 mg/dL (8.4-10.2); Carbon Dioxide 28 mmol/L (22-30); Chloride 110 mmol/L (98-107); Estimated CRCL calculation 82 ml/min; Estimated Glomerular Filt Rate > 60; Glucose 121 mg/dL (65-110); Magnesium 2.2 mg/dL (1.6-2.3); Phosphorus 1.9 mg/dL (2.5-4.5); Potassium 3.3 mmol/L (3.4-5.0); Sodium 145 mmol/L (137-145)
[2023-09-24 06:16] VITALS: BP 140/60; PULSE 93; RESP 22; TEMP 36.9; O2SAT 95
[2023-09-24 07:35] LABS: Glucose Point of Care 175 mg/dl (65-105)
[2023-09-24 08:00] VITALS: PULSE 93; RESP 22; O2SAT 95
--- NOTE | 2023-09-24 08:48 | PM.PNNEP ---
Progress Note: A&P Assessment and Plan (1) Metabolic acidosis: Code(s): E87.20 - Acidosis, unspecified Status: Acute Assessment and Plan: Mixed acidosis: delta bicarb about 15 and delta AG was about 5. beta hydroxry butyrate was 4, explaining the AG part of the issue. etiology of NAGMA part is not clear. anesthesia (?) and/or infection (?) contributing factors CO2 is now back to normal. 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 low grade temp yesterday. WBC still 19. local wound care may require further surgical intervention Orthopedics following (3) Altered mental status: Code(s): R41.82 - Altered mental status, unspecified Status: Acute Assessment and Plan: etiology not clear Neurology following imaging to date noted CSF/LP done -- cultures pending on antibiotics continue supportive therapy (4) Hypokalemia: Code(s): E87.6 - Hypokalemia Status: Acute Assessment and Plan: K is low. as is the phosphorus. probably related to correction of acidosis. Phos low as well, maybe due to same thing. Ca is on low side of normal. will check vit d will supplement again. Subjective Date/time seen: 09/24/23 08:48 Interval history: Pt is resting in bed, lying on his left side. no complaints but not very verbal. in with a sitter who says he has been like this. Exam Narrative: General: ill appearing male - awake but non-communication/nonverbal Heart: normal S1 and S2; no rub Lungs: clear to auscultation Abdomen: soft, nontender, nondistended, positive bowel sounds Extremities: no cyanosis or clubbing; no edema Skin: right heel wound vac noted Objective Data Vital Signs Vital Signs: Vital Signs - 24 hr 09/23/23 13:55 09/23/23 14:08 09/23/23 21:51 Temperature 100.0 F H 98.8 F 98.6 F Pulse Rate 80 66 81 Respiratory Rate 22 H 19 22 H Blood Pressure 145/54 H 144/78 H 133/59 L Pulse Oximetry 93 90 94 Oxygen Delivery 09/23/23 20:00 09/24/23 06:16 Temperature 98.4 F Pulse Rate 93 Respiratory Rate 22 H Blood Pressure 140/60 Pulse Oximetry 95 Oxygen Delivery Room Air Intake/Output Intake/Output: Intake & Output 09/21/23 09/22/23 09/23/23 09/24/23 23:59 23:59 23:59 23:59 Intake Total 50 1900 1638.2 100 Output Total 1999 925 Balance 50 1900 -361.8 -825 Meds/Results Medications: Active Medications Generic Name Dose Route Start Last Admin Trade Name Freq PRN Reason Stop Dose Admin Acetaminophen 650 mg 09/17/23 06:25 09/17/23 09:32 Acetaminophen 325 Mg Tablet PO 650 mg Q4H PRN Administration Mild Pain (1-3) or Fever Hydrocodone Bitart/Acetaminophen 1 tab 09/17/23 09:27 09/19/23 19:37 Hydrocodone/Acetaminophen (*Crx) 7.5-325 Mg Tablet PO 1 tab Q4H PRN Administration Pain Rated 4-6 Aspirin 81 mg 09/18/23 09:00 09/24/23 07:41 Aspirin 81 Mg Enteric Tablet PO Not Given DAILY [facility] BEDS AT [facility] Atorvastatin Calcium 40 mg 09/18/23 09:00 09/24/23 07:41 Atorvastatin 40 Mg Tablet PO Not Given DAILY [facility] INCLUDE 234 BEDS AT [facility] Calcium Carbonate 400 mg 09/18/23 11:04 09/19/23 01:35 Calcium Carbonate (Tums) 500 Mg (200 Mg Elemental) PO 400 mg Q6H PRN Administration Indigestion Carbamazepine 200 mg 09/21/23 06:30 09/24/23 05:29 Carbamazepine 200 Mg Tablet PO Not Given Q8HR COUNTS INCLUDE 234 BEDS AT [facility] Carvedilol 3.125 mg 09/17/23 21:00
[2023-09-24] MEDS: THIAMINE HCL 200 MG/2 ML VIAL 100 MG IV PUSH (08:59)
--- NOTE | 2023-09-24 09:48 | PCOTNOTE ---
Attempted to see pt for Occupational therapy. Per RN, pt is not appropriate for therapy today.
[2023-09-24 11:12] LABS: Glucose Point of Care 178 mg/dl (65-105)
[2023-09-24] MEDS: FOLIC ACID 1 MG/0.2 ML INJ IV PUSH (11:40)
[2023-09-24 14:00] VITALS: BP 154/78; PULSE 72; RESP 18; TEMP 36.8; O2SAT 96
--- NOTE | 2023-09-24 14:02 | PM.IMPN ---
Progress Note: A&P Assessment and Plan (1) Acute metabolic encephalopathy: Code(s): G93.41 - Metabolic encephalopathy Status: Acute Assessment and Plan: Await viral PCR's Continue acyclovir / clinically improved, so began clear liquids with Ensure Clear QID, ST eval and tx (2) Osteomyelitis of toe of right foot: Code(s): M86.9 - Osteomyelitis, unspecified Status: Acute Assessment and Plan: Continue vancomycin and cefepime (3) Amputation of toe of right foot: Code(s): S98.131A - Complete traumatic amputation of one right lesser toe, initial encounter Status: Acute Assessment and Plan: Per ortho (4) Type 2 diabetes mellitus with right diabetic foot infection: Code(s): E11.628 - Type 2 diabetes mellitus with other skin complications; L08.9 - Local infection of the skin and subcutaneous tissue, unspecified Status: Acute Assessment and Plan: Continue glycemic management (5) Cellulitis of right lower extremity: Code(s): L03.115 - Cellulitis of right lower limb Status: Acute Assessment and Plan: Responded to cefepime, vancomycin (6) Sepsis: Code(s): A41.9 - Sepsis, unspecified organism Status: Acute Assessment and Plan: Resolved (7) Coronary artery disease: Code(s): I25.10 - Atherosclerotic heart disease of [place] coronary artery without angina pectoris Status: Chronic Assessment and Plan: Clinicall stable (8) Chronic obstructive pulmonary disease: Qualifiers: COPD type: unspecified COPD Qualified Code(s): J44.9 - Chronic obstructive pulmonary disease, unspecified Code(s): J44.9 - Chronic obstructive pulmonary disease, unspecified Status: Acute Assessment and Plan: Clinically stable (9) Metabolic acidosis: Code(s): E87.20 - Acidosis, unspecified Status: Acute Assessment and Plan: Resolved (10) Diabetic foot ulcer: Qualifiers: Diabetic foot ulcer location: toe Diabetes mellitus type: type 2 Laterality: left Non-pressure ulcer stage: with necrosis of bone Qualified Code(s): E11.621 - Type 2 diabetes mellitus with foot ulcer; L97.524 - Non-pressure chronic ulcer of other 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 Code(s): E11.621 - Type 2 diabetes mellitus with foot ulcer; L97.509 - Non-pressure chronic ulcer of other part of unspecified foot with unspecified severity Status: Acute Assessment and Plan: Continue would care (11) History of completed stroke: Code(s): Z86.73 - Personal history of transient ischemic attack (TIA), and cerebral infarction without residual deficits Status: Acute Assessment and Plan: Focal neuro findings likely due to old strokes (12) Seizure disorder: Code(s): G40.909 - Epilepsy, unspecified, not intractable, without status epilepticus Status: Acute Assessment and Plan: No observed seizures recently Carbamazepine level Subjective Date/time seen: 09/24/23 14:02 Interval history: More alert this afternoon. Tolerated drinking fluid through a straw. Review of Systems Review of Systems: ROS unobtainable: Yes unobtainable due to medical condition Exam Narrative: Late middle-aged gentleman appears older than his stated age is lying comfortably in his hospital bed. Pupils round reactive light. Sclerae nonicteric. Oral mucosa dry. Neck without JVD. Chest with coarse of breath sounds. Normal effort. Heart normal S1 and S2. Rate regular. No audible murmur or gallop. Abdomen bowel sounds active soft nontender no palpable mass. Extremities no edema. Musculoskeletal multiple surgically removed digits bilateral lower extremities. Neurologic cranial nerves symmetric to inspection. Does not respond to noxious stimuli right upper extremity. Does respond to noxious stimuli left upper extremity. Babinski's negative. Minimal
[2023-09-24 14:38] LABS: Vancomycin Trough 16.1 ug/mL (10.0-20.0)
[2023-09-24] MEDS: POTASSIUM PHOS,M-BASIC-D-BASIC 20 MMOL in SODIUM CHLORIDE 0.9% IV 250 ML 64.17 MMOL IVPB (15:25)
[2023-09-24 17:14] LABS: Glucose Point of Care 182 mg/dl (65-105)
[2023-09-24] MEDS: VANCOMYCIN 1,750 MG/NS 500 ML 1,750 MG/500 ML BAG 250 MG IVPB (18:18)
[2023-09-24] MEDS: carvediloL 3.125 MG TABLET PO (20:24)
[2023-09-24] MEDS: ACETAMINOPHEN 325 MG TABLET 650 MG PO (20:24)
[2023-09-24 21:22] LABS: Glucose Point of Care 199 mg/dl (65-105)
[2023-09-24 21:30] VITALS: BP 148/93; PULSE 82; RESP 22; TEMP 37.1; O2SAT 94
[2023-09-24] MEDS: SODIUM CHLORIDE 0.9% IV 100 ML (22:37)
[2023-09-25] MEDS: CEFEPIME 2 GM/NS 50 ML 2 GM/50 ML BAG IVPB ×2 (04:45→17:52)
[2023-09-25 06:00] VITALS: BP 163/74; PULSE 75; RESP 20; TEMP 36.8; O2SAT 95
[2023-09-25 06:21] LABS: Basophils Absolute Auto 0.1 K/mm3 (0.0-0.1); Basophils Percent Auto 0.5 % (0.2-1.2); Eosinophils Absolute Auto 0.1 K/mm3 (0-0.3); Eosinophils Percent Auto 0.8 % (0-4.4); Hematocrit 34.7 % (42.0-52.0); Immature Granulocyte Absolute 0.35 K/mm3 (0.00-0.031); Lymphocytes Percent Auto 11.9 % (18.3-44.2); Mean Corpuscular HGB Conc 31.7 g/dl (32-36); Mean Corpuscular Hemoglobin 30.3 pg (26-34); Mean Corpuscular Volume 95.6 fl (80-100); Mean Platelet Volume 10.3 fl (7.4-10.4); Monocytes Absolute Auto 1.8 K/mm3 (0.1-0.6); Monocytes Percent Auto 10.3 % (2.6-8.5); Neutrophils Absolute Auto 13.2 K/mm3 (1.3-6.7); Neutrophils Percent Auto 74.5 % (45.5-73.1); Platelet Count Result 490 k/mm3 (150-375); Red Blood Count 3.63 M/mm3 (4.6-6.20); Red Cell Distribution Width 15.2 % (11.5-14.5); White Blood Count 17.7 K/mm3 (4.5-10.0)
[2023-09-25 06:31] LABS: Alanine Aminotransferase 23 U/L (6-50); Albumin Level 3.6 g/dL (3.5-5.1); Alkaline Phosphatase 65 U/L (38-126); Anion Gap 5 mmol/L (4-12); Aspartate Amino Transferase 33 U/L (17-59); Bilirubin,Total 0.6 mg/dL (0.2-1.3); Blood Urea Nitrogen 17 mg/dL (9-20); Calcium 8.7 mg/dL (8.4-10.2); Carbon Dioxide 29 mmol/L (22-30); Chloride 109 mmol/L (98-107); Estimated CRCL calculation 91 ml/min; Estimated Glomerular Filt Rate > 60; Glucose 160 mg/dL (65-110); Magnesium 2.1 mg/dL (1.6-2.3); Potassium 3.2 mmol/L (3.4-5.0); Sodium 143 mmol/L (137-145)
[2023-09-25 07:09] LABS: Vitamin D 25 Hydroxy < 12.8 ng/mL
[2023-09-25 07:39] LABS: Glucose Point of Care 169 mg/dl (65-105)
[2023-09-25] MEDS: polyethylene glycoL 3350 17 GM POWD.PACK PO (07:58)
[2023-09-25] MEDS: POTASSIUM CHLORIDE 20 MEQ PACKET (FOR LIQUID) 40 MEQ PO ×2 (07:58→14:33)
[2023-09-25] MEDS: ASPIRIN 81 MG ENTERIC TABLET PO (07:58)
[2023-09-25] MEDS: ATORVASTATIN 40 MG TABLET PO (07:58)
[2023-09-25] MEDS: carvediloL 3.125 MG TABLET PO ×2 (07:58→21:09)
[2023-09-25 08:00] VITALS: PULSE 75; RESP 20; O2SAT 95
[2023-09-25] MEDS: THIAMINE HCL 200 MG/2 ML VIAL 100 MG IV PUSH (08:03)
[2023-09-25] MEDS: FOLIC ACID 1 MG/0.2 ML INJ IV PUSH (08:03)
--- NOTE | 2023-09-25 10:14 | PCSTNOTE ---
Please refer to the Bedside Swallow Evaluation in the EMR. Please note, silent aspiration cannot be ruled out at bedside.
[2023-09-25] MEDS: VANCOMYCIN 1,750 MG/NS 500 ML 1,750 MG/500 ML BAG 250 MG IVPB (11:40)
[2023-09-25 12:44] LABS: Herpes Simplex Type 1 DNA PCR Not Detected (Not Detected); Herpes Simplex Type 2 DNA PCR Not Detected (Not Detected)
[2023-09-25 12:54] LABS: Glucose Point of Care 174 mg/dl (65-105)
[2023-09-25 14:00] VITALS: BP 152/78; PULSE 73; RESP 24; TEMP 36.6; O2SAT 95
[2023-09-25] MEDS: carBAMazepine 200 MG TABLET PO ×2 (15:07→21:09)
--- NOTE | 2023-09-25 16:03 | P.PNIM_ITS ---
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: Code(s): E11.628 - Type 2 diabetes mellitus with other skin complications; L08.9 - Local infection of the skin and subcutaneous tissue, unspecified Status: Acute Assessment and Plan: * Continue glycemic management * /7 FBS 160 (5) Cellulitis of right lower extremity: Code(s): L03.115 - Cellulitis of right lower limb Status: Acute Assessment and Plan: * Responded to cefepime, vancomycin (6) Sepsis: Code(s): A41.9 - Sepsis, unspecified organism Status: Acute Assessment and Plan: * Resolved (7) Coronary artery disease: Code(s): I25.10 - Atherosclerotic heart disease of [place] coronary artery without angina pectoris Status: Chronic Assessment and Plan: * Clinicall stable (8) Chronic obstructive pulmonary disease: Qualifiers: COPD type: unspecified COPD Qualified Code(s): J44.9 - Chronic obstructive pulmonary disease, unspecified Code(s): J44.9 - Chronic obstructive pulmonary disease, unspecified Status: Acute Assessment and Plan: * Clinically stable (9) Metabolic acidosis: Code(s): E87.20 - Acidosis, unspecified Status: Acute Assessment and Plan: * Resolved (10) Diabetic foot ulcer: Qualifiers: Diabetic foot ulcer location: toe Diabetes mellitus type: type 2 Laterality: left Non-pressure ulcer stage: with necrosis of bone Qualified Code(s): E11.621 - Type 2 diabetes mellitus with foot ulcer; L97.524 - Non- pressure chronic ulcer of other 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 Code(s): E11.621 - Type 2 diabetes mellitus with foot ulcer; L97.509 - Non-pressure chronic ulcer of other part of unspecified foot with unspecified severity Status: Acute Assessment and Plan: * Continue would care (11) History of completed stroke: Code(s): Z86.73 - Personal history of transient ischemic attack (TIA), and cerebral infarction without residual deficits Status: Acute Assessment and Plan: * Focal neuro findings likely due to old strokes (right side weakness) (12) Seizure disorder: Code(s): G40.909 - Epilepsy, unspecified, not intractable, without status epilepticus Status: Acute Assessment and Plan: * No observed seizures recently * Carbamazepine level pending Subjective Date/time seen: 09/25/23 16:03 Interval history: Tolerating pureed diet with thin liquids as recommended by ST. Wants to get out of bed. Denied pain. Review of Systems Review of Systems: ROS unobtainable: Yes unobtainable due to medical condition Exam Narrative: Late middle-aged gentleman appears older than his stated age is sitting comfortably in his hospital bed. Pupils round reactive light. Sclerae nonicteric.
--- NOTE | 2023-09-25 16:03 | PM.IMPN ---
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: Code(s): E11.628 - Type 2 diabetes mellitus with other skin complications; L08.9 - Local infection of the skin and subcutaneous tissue, unspecified Status: Acute Assessment and Plan: Continue glycemic management 09/24 FBS 160 (5) Cellulitis of right lower extremity: Code(s): L03.115 - Cellulitis of right lower limb Status: Acute Assessment and Plan: Responded to cefepime, vancomycin (6) Sepsis: Code(s): A41.9 - Sepsis, unspecified organism Status: Acute Assessment and Plan: Resolved (7) Coronary artery disease: Code(s): I25.10 - Atherosclerotic heart disease of [place] coronary artery without angina pectoris Status: Chronic Assessment and Plan: Clinicall stable (8) Chronic obstructive pulmonary disease: Qualifiers: COPD type: unspecified COPD Qualified Code(s): J44.9 - Chronic obstructive pulmonary disease, unspecified Code(s): J44.9 - Chronic obstructive pulmonary disease, unspecified Status: Acute Assessment and Plan: Clinically stable (9) Metabolic acidosis: Code(s): E87.20 - Acidosis, unspecified Status: Acute Assessment and Plan: Resolved (10) Diabetic foot ulcer: Qualifiers: Diabetic foot ulcer location: toe Diabetes mellitus type: type 2 Laterality: left Non-pressure ulcer stage: with necrosis of bone Qualified Code(s): E11.621 - Type 2 diabetes mellitus with foot ulcer; L97.524 - Non-pressure chronic ulcer of other 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 Code(s): E11.621 - Type 2 diabetes mellitus with foot ulcer; L97.509 - Non-pressure chronic ulcer of other part of unspecified foot with unspecified severity Status: Acute Assessment and Plan: Continue would care (11) History of completed stroke: Code(s): Z86.73 - Personal history of transient ischemic attack (TIA), and cerebral infarction without residual deficits Status: Acute Assessment and Plan: Focal neuro findings likely due to old strokes (right side weakness) (12) Seizure disorder: Code(s): G40.909 - Epilepsy, unspecified, not intractable, without status epilepticus Status: Acute Assessment and Plan: No observed seizures recently Carbamazepine level pending Subjective Date/time seen: 09/25/23 16:03 Interval history: Tolerating pureed diet with thin liquids as recommended by ST. Wants to get out of bed. Denied pain. Review of Systems Review of Systems: ROS unobtainable: Yes unobtainable due to medical condition Exam Narrative: Late middle-aged gentleman appears older than his stated age is sitting comfortably in his hospital bed. Pupils round reactive light. Sclerae nonicteric. Oral mucosa dry. Neck without JVD. Chest with coarse of breath sounds. Normal effort. Heart normal S1 and S2. Rate regular. No audible murmur or gallop. Abdomen bowel sounds active soft nontender no palpable mass. Extremities no edema. Musculoskeletal multiple surgically removed digits bilateral lower extremities. Neurologic Mild right facial droop, speech slightly slurred. Psych Alert. Ox1. Objective Data Vital Signs Vital Signs: Vital Signs - 24 h
--- NOTE | 2023-09-25 16:39 | P.PNNP_ITS ---
Progress Note: A&P Assessment and Plan (1) Metabolic acidosis: Code(s): E87.20 - Acidosis, unspecified Status: Acute Assessment and Plan: * Mixed acidosis: delta bicarb about 15 and delta AG was about 5. beta hydroxry butyrate was 4, explaining the AG part of the issue. * etiology of NAGMA part is not clear. * anesthesia (?) and/or infection (?) contributing factors * CO2 is now normal (2) Diabetic ulcer of right heel: Qualifiers: Diabetes mellitus type: type 2 Non-pressure ulcer stage: with necrosis of muscle Qualified Code(s): E11.621 - Type 2 diabetes mellitus with foot ulcer; L97.413 - Non-pressure chronic ulcer of right heel and midfoot with necr osis of muscle Code(s): E11.621 - Type 2 diabetes mellitus with foot ulcer; L97.419 - Non-pressure chronic ulcer of right heel and midfoot with unspecified severity Status: Acute Assessment and Plan: * s/p excisional debridement on 09/19/23 * on ampicillin, cefipime, and vanco. * low grade temp yesterday. WBC still 19. * local wound care * may require further surgical intervention * Orthopedics following (3) Altered mental status: Code(s): R41.82 - Altered mental status, unspecified Status: Acute Assessment and Plan: * etiology not clear * Neurology following * imaging to date noted * CSF/LP done -- cultures pending * on antibiotics * continue supportive therapy (4) Hypokalemia: Code(s): E87.6 - Hypokalemia Status: Acute Assessment and Plan: Radha saini. supplemented Subjective Date/time seen: 09/25/23 16:39 Interval history: not interactive verbally. Exam Narrative: General: ill appearing male - awake but non-communication/nonverbal Heart: normal S1 and S2; no rub Lungs: clear bilaterally Abdomen: soft, nontender, nondistended, positive bowel sounds Extremities: no edema Skin: right heel wound vac noted Objective Data Vital Signs Vital Signs: Vital Signs - 24 hr 09/24/23 21:30 09/24/23 20:00 09/25/23 06:00 Temperature 98.7 F 98.2 F Pulse Rate 82 75 Respiratory Rate 22 H 20 Blood Pressure 148/93 H 163/74 H Pulse Oximetry 94 95 Oxygen Delivery Room Air 09/25/23 08:00 09/25/23 14:00 Temperature 97.8 F Pulse Rate 75 73 Respiratory Rate 20 24 H Blood Pressure 152/78 H Pulse Oximetry 95 95 Oxygen Delivery Room Air Intake/Output Intake/Output: Intake & Output 09/22/23 09/23/23 09/24/23 09/25/23 23:59 23:59 23:59 23:59 Intake Total 1899 1638.2 2407.3 450 Output Total 19995 Balance 1900 -361.8 182.3 450 Meds/Results Medications: Active Medications Generic Name Dose Route Start Last Admin Trade Name Freq PRN Reason Stop Dose Admin Acetaminophen 650 mg 09/17/23 06:25 09/24/23 20:24 Acetaminophen 325 Mg Tablet PO 650 mg Q4H PRN Administration Mild Pain (1-3) or Fever Aspirin 81 mg 09/18/23 09:00 09/25/23 07:58 Aspirin 81 Mg Enteric Tablet PO 81 mg DAILY LEAH Administration Atorvastatin Calcium 40 mg 09/18/23 09:00 09/25/23 07:58 Atorvastatin 40 Mg Table
--- NOTE | 2023-09-25 16:39 | PM.PNNEP ---
Progress Note: A&P Assessment and Plan (1) Metabolic acidosis: Code(s): E87.20 - Acidosis, unspecified Status: Acute Assessment and Plan: Mixed acidosis: delta bicarb about 15 and delta AG was about 5. beta hydroxry butyrate was 4, explaining the AG part of the issue. etiology of NAGMA part is not clear. anesthesia (?) and/or infection (?) contributing factors CO2 is now normal (2) Diabetic ulcer of right heel: Qualifiers: Diabetes mellitus type: type 2 Non-pressure ulcer stage: with necrosis of muscle Qualified Code(s): E11.621 - Type 2 diabetes mellitus with foot ulcer; L97.413 - Non-pressure chronic ulcer of right heel and midfoot with necrosis of muscle Code(s): E11.621 - Type 2 diabetes mellitus with foot ulcer; L97.419 - Non-pressure chronic ulcer of right heel and midfoot with unspecified severity Status: Acute Assessment and Plan: s/p excisional debridement on 09/19/23 on ampicillin, cefipime, and vanco. low grade temp yesterday. WBC still 19. local wound care may require further surgical intervention Orthopedics following (3) Altered mental status: Code(s): R41.82 - Altered mental status, unspecified Status: Acute Assessment and Plan: etiology not clear Neurology following imaging to date noted CSF/LP done -- cultures pending on antibiotics continue supportive therapy (4) Hypokalemia: Code(s): E87.6 - Hypokalemia Status: Acute Assessment and Plan: K slt low. supplemented Subjective Date/time seen: 09/25/23 16:39 Interval history: not interactive verbally. Exam Narrative: General: ill appearing male - awake but non-communication/nonverbal Heart: normal S1 and S2; no rub Lungs: clear bilaterally Abdomen: soft, nontender, nondistended, positive bowel sounds Extremities: no edema Skin: right heel wound vac noted Objective Data Vital Signs Vital Signs: Vital Signs - 24 hr 09/24/23 21:30 09/24/23 20:00 09/25/23 06:00 Temperature 98.7 F 98.2 F Pulse Rate 82 75 Respiratory Rate 22 H 20 Blood Pressure 148/93 H 163/74 H Pulse Oximetry 94 95 Oxygen Delivery Room Air 09/25/23 08:00 09/25/23 14:00 Temperature 97.8 F Pulse Rate 75 73 Respiratory Rate 20 24 H Blood Pressure 152/78 H Pulse Oximetry 95 95 Oxygen Delivery Room Air Intake/Output Intake/Output: Intake & Output 09/22/23 09/23/23 09/24/23 09/25/23 23:59 23:59 23:59 23:59 Intake Total 1900 1638.2 2407.3 450 Output Total 1999 2225 Balance 1900 -361.8 182.3 450 Meds/Results Medications: Active Medications Generic Name Dose Route Start Last Admin Trade Name Freq PRN Reason Stop Dose Admin Acetaminophen 650 mg 09/17/23 06:25 09/24/23 20:24 Acetaminophen 325 Mg Tablet PO 650 mg Q4H PRN Administration Mild Pain (1-3) or Fever Aspirin 81 mg 09/18/23 09:00 09/25/23 07:58 Aspirin 81 Mg Enteric Tablet PO 81 mg DAILY LEAH Administration Atorvastatin Calcium 40 mg 09/18/23 09:00 09/25/23 07:58 Atorvastatin 40 Mg Tablet PO 40 mg DAILY LEAH Administration Calcium Carbonate 400 mg 09/18/23 11:04 09/19/23 01:35 Calcium Carbonate (Tums) 500 Mg (200 Mg Elemental) PO 400 mg Q6H PRN Administration Indigestion Carbamazepine 200 mg 09/21/23 06:30 09/25/23 15:07 Carbamazepine 200 Mg Tablet PO 200 mg Q8HR LEAH Administration Carvedilol 3.125 mg 09/17/23 21:00 09/25/23 07:58 Carvedilol 3.125 Mg Tablet PO 3.125 mg Q12HR LEAH Administration Dextrose 12.5 gm 09/17/23 06:25 Dextrose 50% 25 Gm/50 Ml Syringe IV PUSH PRN PRN Hypoglycemia Protocol Glucagon 1 mg 09/17/23 06:25 Glucagon For Inj 1 Mg Vial IM PRN PRN Hypoglycemia Protocol Glucose 15 gm 09/17/23 06:25 Glucose Oral Gel 15 Gm Of Glucse In 37.5 Gm Tube PO PRN PRN Hypoglycemia Protocol Dextrose 1,00
[2023-09-25 16:58] LABS: Glucose Point of Care 151 mg/dl (65-105)
[2023-09-25 21:09] VITALS: PULSE 72
[2023-09-25 22:00] VITALS: BP 142/76; PULSE 74; RESP 18; TEMP 37; O2SAT 95
[2023-09-26] MEDS: ACETAMINOPHEN 325 MG TABLET 650 MG PO ×2 (00:42→23:34)
[2023-09-26 01:30] LABS: Epstein Barr Virus DNA PCR Not Detected (Not Detected); Source Epstein Barr Virus CSF
[2023-09-26] MEDS: traMADol HCL (*CRX) 50 MG TABLET PO (02:31)
[2023-09-26] MEDS: HYDROmorphone HCL INJ (*CRX) 1 MG/ML SYR IV PUSH (02:32)
[2023-09-26] MEDS: VANCOMYCIN 1,750 MG/NS 500 ML 1,750 MG/500 ML BAG 250 MG IVPB (03:20)
[2023-09-26] MEDS: CEFEPIME 2 GM/NS 50 ML 2 GM/50 ML BAG IVPB (05:00)
[2023-09-26 05:54] VITALS: BP 144/64; PULSE 64; RESP 18; TEMP 36.8; O2SAT 93
[2023-09-26] MEDS: carBAMazepine 200 MG TABLET PO ×3 (06:16→20:06)
[2023-09-26 06:33] LABS: Basophils Absolute Auto 0.1 K/mm3 (0.0-0.1); Basophils Percent Auto 0.4 % (0.2-1.2); Eosinophils Absolute Auto 0.4 K/mm3 (0-0.3); Eosinophils Percent Auto 2.2 % (0-4.4); Hematocrit 31.6 % (42.0-52.0); Immature Granulocyte Absolute 0.31 K/mm3 (0.00-0.031); Immature Granulocyte Percent A 1.8 % (0-0.5); Lymphocytes Absolute Auto 3.33 K/mm3 (0.9-3.2); Lymphocytes Percent Auto 19.7 % (18.3-44.2); Mean Corpuscular HGB Conc 31.6 g/dl (32-36); Mean Corpuscular Hemoglobin 29.9 pg (26-34); Mean Corpuscular Volume 94.3 fl (80-100); Mean Platelet Volume 10.4 fl (7.4-10.4); Monocytes Absolute Auto 1.6 K/mm3 (0.1-0.6); Monocytes Percent Auto 9.7 % (2.6-8.5); Neutrophils Absolute Auto 11.2 K/mm3 (1.3-6.7); Neutrophils Percent Auto 66.2 % (45.5-73.1); Platelet Count Result 375 k/mm3 (150-375); Red Blood Count 3.35 M/mm3 (4.6-6.20); Red Cell Distribution Width 15.2 % (11.5-14.5); White Blood Count 16.9 K/mm3 (4.5-10.0)
[2023-09-26 06:39] LABS: Alanine Aminotransferase 21 U/L (6-50); Albumin Level 3.2 g/dL (3.5-5.1); Alkaline Phosphatase 59 U/L (38-126); Anion Gap 3 mmol/L (4-12); Aspartate Amino Transferase 33 U/L (17-59); Bilirubin,Total 0.6 mg/dL (0.2-1.3); Blood Urea Nitrogen 16 mg/dL (9-20); Calcium 8.4 mg/dL (8.4-10.2); Carbon Dioxide 29 mmol/L (22-30); Chloride 104 mmol/L (98-107); Estimated CRCL calculation 91 ml/min; Estimated Glomerular Filt Rate > 60; Glucose 125 mg/dL (65-110); Magnesium 2.1 mg/dL (1.6-2.3); Phosphorus 2.4 mg/dL (2.5-4.5); Potassium 3.5 mmol/L (3.4-5.0); Sodium 136 mmol/L (137-145)
[2023-09-26 06:59] LABS: Glucose Point of Care 119 mg/dl (65-105)
[2023-09-26] MEDS: polyethylene glycoL 3350 17 GM POWD.PACK PO (09:18)
--- NOTE | 2023-09-26 09:18 | PM.PNORT ---
Progress Note: A&P Assessment and Plan (1) Diabetic ulcer of right heel: Qualifiers: Diabetes mellitus type: type 2 Non-pressure ulcer stage: with necrosis of muscle Qualified Code(s): E11.621 - Type 2 diabetes mellitus with foot ulcer; L97.413 - Non-pressure chronic ulcer of right heel and midfoot with necrosis of muscle Code(s): E11.621 - Type 2 diabetes mellitus with foot ulcer; L97.419 - Non-pressure chronic ulcer of right heel and midfoot with unspecified severity Status: Acute Assessment and Plan: Wound VAC dressing change today. Ulcer stable at this point with no signs of active infection. Continue IV antibiotics. Continue wound VAC. Will follow. May be a candidate for graft application pending improvement in overall medical condition. Could be performed as an outpatient as well. (2) Encephalopathy: Code(s): G93.40 - Encephalopathy, unspecified Status: Acute Assessment and Plan: Medicine team following. Neurology following. (3) Metabolic acidosis: Code(s): E87.20 - Acidosis, unspecified Status: Acute Assessment and Plan: Medicine team following. Nephrology following. Subjective Subjective Date/Time Seen: 09/26/23 09:18 Post Op day: 7 Principal diagnosis: Right diabetic foot ulcer with infection Interval history: Patient in bed. Responds to verbal cues. Still not following commands. Mild improvement in mentation. Review of Systems Review of Systems: ROS unobtainable: Yes unobtainable due to medical condition Exam Const: General: lethargic and average body habitus; No combative or diaphoretic Resp: Effort & Inspection: normal respiratory effort Skin: Wounds: wounds noted (RIGHT Medial Heel Wound ) Extrem: Other: Wound VAC dressing removed. Right heel ulcer clean, no signs of purulence or drainage. Viable surrounding tissue. Objective Data Vital Signs Vital Signs: Vital Signs - 24 hr 09/25/23 14:00 09/25/23 21:09 09/25/23 20:00 Temperature 36.6 C Pulse Rate 73 72 Respiratory Rate 24 H Blood Pressure 152/78 H Pulse Oximetry 95 Oxygen Delivery Room Air 09/25/23 22:00 09/26/23 05:54 Temperature 37.0 C 36.8 C Pulse Rate 74 64 Respiratory Rate 18 18 Blood Pressure 142/76 H 144/64 H Pulse Oximetry 95 93 Oxygen Delivery Intake/Output Intake/Output: Intake & Output 09/23/23 09/24/23 09/25/23 09/26/23 23:59 23:59 23:59 23:59 Intake Total 1638.2 2407.3 3930 1250 Output Total 1999 2225 750 400 Balance -361.8 182.3 3180 850 Meds/Results Medications: Active Medications Generic Name Dose Route Start Last Admin Trade Name Freq PRN Reason Stop Dose Admin Acetaminophen 650 mg 09/17/23 06:25 09/26/23 00:42 Acetaminophen 325 Mg Tablet PO 650 mg Q4H PRN Administration Mild Pain (1-3) or Fever Aspirin 81 mg 09/18/23 09:00 09/25/23 07:58 Aspirin 81 Mg Enteric Tablet PO 81 mg DAILY LEAH Administration Atorvastatin Calcium 40 mg 09/18/23 09:00 09/25/23 07:58 Atorvastatin 40 Mg Tablet PO 40 mg DAILY LEAH Administration Calcium Carbonate 400 mg 09/18/23 11:04 09/19/23 01:35 Calcium Carbonate (Tums) 500 Mg (200 Mg Elemental) PO 400 mg Q6H PRN Administration Indigestion Carbamazepine 200 mg 09/21/23 06:30 09/26/23 06:16 Carbamazepine 200 Mg Tablet PO 200 mg Q8HR LEAH Administration Carvedilol 3.125 mg 09/17/23 21:00 09/25/23 21:09 Carvedilol 3.125 Mg Tablet PO 3.125 mg Q12HR LEAH Administration Dextrose 12.5 gm 09/17/23 06:25 Dextrose 50% 25 Gm/50 Ml Syringe IV PUSH PRN PRN Hypoglycemia Protocol Glucagon 1 mg 09/17/23 06:25 Glucagon For Inj 1 Mg Vial IM PRN PRN Hypoglycemia Protocol Glucose 15 gm 09/17/23 06:25 Glucose Oral Gel 15 Gm Of Glucse In 37.5 Gm Tube PO PRN PRN Hypoglycemia Protocol Dextrose 1,000 mls @ 100 mls/hr 09/17/23 06:25 Dext
[2023-09-26 09:19] VITALS: PULSE 72
[2023-09-26] MEDS: ASPIRIN 81 MG ENTERIC TABLET PO (09:19)
[2023-09-26] MEDS: ATORVASTATIN 40 MG TABLET PO (09:19)
[2023-09-26] MEDS: THERAPEUTIC MULTIVITAMINS/MINERALS TAB (*BKC) 1 TABLET PO (09:19)
[2023-09-26] MEDS: carvediloL 3.125 MG TABLET PO ×2 (09:19→20:06)
--- NOTE | 2023-09-26 09:45 | PM.PNNEP ---
Progress Note: A&P Assessment and Plan (1) Metabolic acidosis: Code(s): E87.20 - Acidosis, unspecified Status: Acute Assessment and Plan: resolved noted combination of [place] and gap metabolic acidosis delta bicarb about 15 and delta AG was about 5 gap acidosis due to elevated BHOB etiology of NAGMA part is not clear anesthesia (?) and/or infection (?) contributing factors CO2 is now normalized (2) Diabetic ulcer of right heel: Qualifiers: Diabetes mellitus type: type 2 Non-pressure ulcer stage: with necrosis of muscle Qualified Code(s): E11.621 - Type 2 diabetes mellitus with foot ulcer; L97.413 - Non-pressure chronic ulcer of right heel and midfoot with necrosis of muscle Code(s): E11.621 - Type 2 diabetes mellitus with foot ulcer; L97.419 - Non-pressure chronic ulcer of right heel and midfoot with unspecified severity Status: Acute Assessment and Plan: s/p excisional debridement on 09/19/23 on antibiotics local wound care may require further surgical intervention Orthopedics following (3) Altered mental status: Code(s): R41.82 - Altered mental status, unspecified Status: Acute Assessment and Plan: etiology not clear Neurology following imaging to date noted CSF/LP done -- cultures pending on antibiotics continue supportive therapy Not much else to add -- will continue to follow from a distance. Subjective Date/time seen: 09/26/23 09:45 Interval history: Follow-up for metabolic acidosis. Chart reviewed since last seen -- mentation seems about the same as when I last saw him -- sitting up in chair asleep; remains nonverbal and noncommunicative; per sitter, was able to eat breakfast with assistance; no apparent distress. Exam Narrative: General: ill appearing male - non-communicative/nonverbal Heart: normal S1 and S2; no rub Lungs: clear bilaterally Abdomen: soft, nontender, nondistended, positive bowel sounds Extremities: no edema Skin: right heel wound present Objective Data Vital Signs Vital Signs: Vital Signs Temp Pulse Resp BP Pulse Ox O2 Del Method 09/26/23 09:38 Room Air 09/26/23 09:19 72 09/26/23 05:54 98.3 F 64 18 144/64 H 93 09/25/23 22:00 98.6 F 74 18 142/76 H 95 09/25/23 20:00 Room Air 09/25/23 21:09 72 09/25/23 14:00 97.8 F 73 24 H 152/78 H 95 Intake/Output Intake/Output: Intake & Output 09/23/23 09/24/23 09/25/23 09/26/23 23:59 23:59 23:59 23:59 Intake Total 1638.2 2407.3 3930 1250 Output Total 1999 2225 750 400 Balance -361.8 182.3 3180 850 Meds/Results Medications: Active Medications Generic Name Dose Route Start Last Admin Trade Name Freq PRN Reason Stop Dose Admin Acetaminophen 650 mg 09/17/23 06:25 09/26/23 00:42 Acetaminophen 325 Mg Tablet PO 650 mg Q4H PRN Administration Mild Pain (1-3) or Fever Aspirin 81 mg 09/18/23 09:00 09/26/23 09:19 Aspirin 81 Mg Enteric Tablet PO 81 mg DAILY LEAH Administration Atorvastatin Calcium 40 mg 09/18/23 09:00 09/26/23 09:19 Atorvastatin 40 Mg Tablet PO 40 mg DAILY LEAH Administration Calcium Carbonate 400 mg 09/18/23 11:04 09/19/23 01:35 Calcium Carbonate (Tums) 500 Mg (200 Mg Elemental) PO 400 mg Q6H PRN Administration Indigestion Carbamazepine 200 mg 09/21/23 06:30 09/26/23 06:16 Carbamazepine 200 Mg Tablet PO 200 mg Q8HR LEAH Administration Carvedilol 3.125 mg 09/17/23 21:00 09/26/23 09:19 Carvedilol 3.125 Mg Tablet PO 3.125 mg Q12HR LEAH Administration Dextrose 12.5 gm 09/17/23 06:25 Dextrose 50% 25 Gm/50 Ml Syringe IV PUSH PRN PRN Hypoglycemia Protocol Glucagon 1 mg 09/17/23 06:25 Glucagon For Inj 1 Mg Vial IM PRN PRN Hypoglycemia Protocol Glucose 15 gm 09/17/23 06:25 Glucose Oral Gel 15 Gm Of Glucse In 37.5 Gm Tube PO PRN PRN
[2023-09-26 11:16] LABS: Glucose Point of Care 172 mg/dl (65-105)
[2023-09-26 12:38] VITALS: BMI 28.5
[2023-09-26 12:55] LABS: VDRL Quantitative CSF Nonreactive (Nonreactive)
[2023-09-26 14:00] VITALS: BP 138/79; PULSE 69; RESP 24; TEMP 36.3; O2SAT 100
[2023-09-26 14:32] LABS: Varicella IgM Antibody <=0.90 (<=0.90)
[2023-09-26 16:29] LABS: Glucose Point of Care 169 mg/dl (65-105)
[2023-09-26] MEDS: AMPICILLIN SULB 3 GM/NS 100 ML 3 GM/100 ML VIAL IVPB (17:18)
[2023-09-26 20:06] VITALS: PULSE 73
[2023-09-26 20:38] VITALS: BP 127/76; PULSE 70; RESP 16; TEMP 36.4; O2SAT 98
[2023-09-26 20:44] LABS: Glucose Point of Care 186 mg/dl (65-105)
--- NOTE | 2023-09-26 21:20 | PM.IMPN ---
Progress Note: A&P Assessment and Plan (1) History of completed stroke: Code(s): Z86.73 - Personal history of transient ischemic attack (TIA), and cerebral infarction without residual deficits Status: Acute (2) Coronary artery disease: Code(s): I25.10 - Atherosclerotic heart disease of samish coronary artery without angina pectoris Status: Chronic (3) Hypertension: Qualifiers: Hypertension type: primary hypertension Qualified Code(s): I10 - Essential (primary) hypertension Code(s): I10 - Essential (primary) hypertension Status: Acute (4) Delirium: Code(s): R41.0 - Disorientation, unspecified Status: Acute (5) Chronic obstructive pulmonary disease: Qualifiers: COPD type: unspecified COPD Qualified Code(s): J44.9 - Chronic obstructive pulmonary disease, unspecified Code(s): J44.9 - Chronic obstructive pulmonary disease, unspecified Status: Acute (6) Cerebrovascular accident: Onset Date: 06/2021 Code(s): I63.9 - Cerebral infarction, unspecified Status: Chronic (7) Type 2 diabetes mellitus: Qualifiers: 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 use Diabetes mellitus complication status: with circulatory complication Diabetes mellitus complication detail: with other circulatory complications Qualified Code(s): E11.59 - Type 2 diabetes mellitus with other circulatory complications; Z79.4 - terminal make up operator (current) use of insulin Code(s): E11.9 - Type 2 diabetes mellitus without complications Status: Acute (8) Osteomyelitis of toe of left foot: Code(s): M86.9 - Osteomyelitis, unspecified Status: Acute Plan #osteomylelitis, cellulitis -descalate to unasyn 09/25 -continue antibiotics, will need to f/u with ortho for length of treatment -cultures pending -PT/OT/SP #dysphagia -worsening symptoms from old CVA? -advance to pureed diet with thin liquids today #chronic conditions -HLD: aspirin, statin -seizure disorder? on tegretol. maybe his aphasia, will see if he still has episodes tomorrow -HTN: coreg -DMII: sliding scale insulin, accucheck ACHS, hypoglycemia protocol, a1c 6.7 last checked Diet: advance to pureed diet with thin liquids as per speech therapy DVT ppx: will reassess and likely start DVTppx in AM Code status: Full code Disposition: >3 days Subjective Date/time seen: 09/26/23 21:20 Interval history: Patient seen and examined. He is doing well. We are advancing to pureed diet as he did well with speech therapy yesterday. His mentation continues to wax and wane. He does have brief episodes of aphasia which apparently has been happening. Otherwise on vanc, cefepime for osteomyelitis and cellulitis which we will de-escalate to unasyn. He denies fever, chills, N/V/D, chest pain. Review of Systems Review of Systems: 10 point ROS complete, negative other than what is specified in HPI. Exam Narrative: - GENERAL: Pleasant male in no acute distress. Well-nourished. - EYES: EOMI. Anicteric. - HENT: Moist mucous membranes. - LUNGS: Clear to auscultation bilaterally, no wheezing, rhonchi, or rales. - CARDIOVASCULAR: Regular rate and rhythm. No murmur. No JVD. - ABDOMEN: Soft, non-tender and non-distended. No palpable masses. - EXTREMITIES: right heel wrapped, appears to have dry gangrene near heel - NEUROLOGIC: No focal neurological deficits. CN II-XII grossly intact. - PSYCHIATRIC: Awake, Alert and oriented. Appropriate mood and affect, brief moments of aphasia - SKIN: No rashes or lesions. Warm. - LYMPH: No cervical lymphadenopathy. Objective Data Vital Signs Vital Signs: Vital Signs - 24 hr 09/25/23 22:00 09/26/23 05:54 09/26/23 09:19 Temperature 37.0 C 36.8 C Pulse Rate 74 64 72 Respiratory Rate 18 18 Blood Pressure 142/76 H 144/64 H Pulse Oximetry 95 93 Oxygen Delivery 09/26/23 09:38 09/26/23 08:00 09/26/23 14:00 Temperature
[2023-09-27] MEDS: AMPICILLIN SULB 3 GM/NS 100 ML 3 GM/100 ML VIAL IVPB ×5 (00:50→23:56)
[2023-09-27 04:55] VITALS: BP 110/54; PULSE 77; RESP 14; TEMP 36.6; O2SAT 98
[2023-09-27] MEDS: carBAMazepine 200 MG TABLET PO ×3 (05:21→20:17)
[2023-09-27 06:31] LABS: Hematocrit 35.6 % (42.0-52.0); Hemoglobin 11.3 g/dL (14.0-18.0); Mean Corpuscular HGB Conc 31.7 g/dl (32-36); Mean Corpuscular Hemoglobin 29.8 pg (26-34); Mean Corpuscular Volume 93.9 fl (80-100); Mean Platelet Volume 10.7 fl (7.4-10.4); Platelet Count Result 369 k/mm3 (150-375); Red Blood Count 3.79 M/mm3 (4.6-6.20); Red Cell Distribution Width 15.1 % (11.5-14.5); White Blood Count 15.1 K/mm3 (4.5-10.0)
[2023-09-27 07:16] LABS: Anion Gap 7 mmol/L (4-12); Blood Urea Nitrogen 14 mg/dL (9-20); Calcium 8.3 mg/dL (8.4-10.2); Carbon Dioxide 22 mmol/L (22-30); Chloride 104 mmol/L (98-107); Estimated CRCL calculation 103 ml/min; Estimated Glomerular Filt Rate > 60; Glucose 165 mg/dL (65-110); Potassium 3.4 mmol/L (3.4-5.0); Sodium 133 mmol/L (137-145)
[2023-09-27 08:09] LABS: Glucose Point of Care 169 mg/dl (65-105)
[2023-09-27] MEDS: ASPIRIN 81 MG ENTERIC TABLET PO (10:42)
[2023-09-27] MEDS: ACETAMINOPHEN 325 MG TABLET 650 MG PO (10:42)
[2023-09-27] MEDS: THERAPEUTIC MULTIVITAMINS/MINERALS TAB (*BKC) 1 TABLET PO (10:42)
[2023-09-27] MEDS: ATORVASTATIN 40 MG TABLET PO (10:42)
[2023-09-27 10:51] VITALS: PULSE 77
[2023-09-27] MEDS: carvediloL 3.125 MG TABLET PO ×2 (10:51→20:17)
[2023-09-27] MEDS: polyethylene glycoL 3350 17 GM POWD.PACK PO (10:51)
[2023-09-27 11:54] LABS: Glucose Point of Care 194 mg/dl (65-105)
[2023-09-27] MEDS: HYDROcodone/acetaminophen (*CRX) 5-325 MG TABLET 1 TAB PO ×2 (13:11→20:17)
[2023-09-27 14:00] VITALS: BP 126/54; PULSE 77; RESP 18; TEMP 36.6; O2SAT 98
--- NOTE | 2023-09-27 15:20 | PM.PNORT ---
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 Ulcer stable at this point with no signs of active infection. Continue IV antibiotics. Continue wound VAC. Will follow. May be a candidate for graft application pending improvement in overall medical condition. Could be performed as an outpatient as well. (2) Encephalopathy: Code(s): G93.40 - Encephalopathy, unspecified Status: Acute Assessment and Plan: Medicine team following. Neurology following. (3) Metabolic acidosis: Code(s): E87.20 - Acidosis, unspecified Status: Acute Assessment and Plan: Medicine team following. Nephrology following. Subjective Subjective Date/Time Seen: 09/27/23 15:20 Post Op day: 8 Principal diagnosis: Right diabetic foot ulcer with infection Interval history: Patient sitting up in chair. Response to name but not answering questions appropriately. does not speak. Review of Systems Review of Systems: ROS unobtainable: Yes unobtainable due to mental status Exam Const: General: lethargic and average body habitus; No combative or diaphoretic Resp: Effort & Inspection: normal respiratory effort Skin: Wounds: wounds noted (RIGHT Medial Heel Wound ) Extrem: Other: Wound VAC dressing intact. Right heel ulcer clean, no signs of purulence or drainage. Viable surrounding tissue. Objective Data Vital Signs Vital Signs: Vital Signs - 24 hr 09/26/23 20:06 09/26/23 20:38 09/26/23 20:00 Temperature 36.4 C L Pulse Rate 73 70 Respiratory Rate 16 Blood Pressure 127/76 Pulse Oximetry 98 Oxygen Delivery Room Air 09/27/23 04:55 09/27/23 10:51 09/27/23 14:00 Temperature 36.6 C 36.6 C Pulse Rate 77 77 77 Respiratory Rate 14 18 Blood Pressure 110/54 L 126/54 L Pulse Oximetry 98 98 Oxygen Delivery Intake/Output Intake/Output: Intake & Output 09/24/23 09/25/23 09/26/23 09/27/23 23:59 23:59 23:59 23:59 Intake Total 2407.3 3930 1701 920 Output Total 2225 750 1200 350 Balance 182.3 3180 501 570 Meds/Results Medications: Active Medications Generic Name Dose Route Start Last Admin Trade Name Freq PRN Reason Stop Dose Admin Acetaminophen 650 mg 09/17/23 06:25 09/27/23 10:42 Acetaminophen 325 Mg Tablet PO 650 mg Q4H PRN Administration Mild Pain (1-3) or Fever Hydrocodone Bitart/Acetaminophen 1 tab 09/27/23 12:41 09/27/23 13:11 Hydrocodone/Acetaminophen (*Crx) 5-325 Mg Tablet PO 1 tab Q6H PRN Administration Pain Rated 4-6 Aspirin 81 mg 09/18/23 09:00 09/27/23 10:42 Aspirin 81 Mg Enteric Tablet PO 81 mg DAILY LEAH Administration Atorvastatin Calcium 40 mg 09/18/23 09:00 09/27/23 10:42 Atorvastatin 40 Mg Tablet PO 40 mg DAILY LEAH Administration Calcium Carbonate 400 mg 09/18/23 11:04 09/19/23 01:35 Calcium Carbonate (Tums) 500 Mg (200 Mg Elemental) PO 400 mg Q6H PRN Administration Indigestion Carbamazepine 200 mg 09/21/23 06:30 09/27/23 13:11 Carbamazepine 200 Mg Tablet PO 200 mg Q8HR LEAH Administration Carvedilol 3.125 mg 09/17/23 21:00 09/27/23 10:51 Carvedilol 3.125 Mg Tablet PO 3.125 mg Q12HR LEAH Administration Dextrose 12.5 gm 09/17/23 06:25 Dextrose 50% 25 Gm/50 Ml Syringe IV PUSH PRN PRN Hypoglycemia Protocol Glucagon 1 mg 09/17/23 06:25 Glucagon For Inj 1 Mg Vial IM PRN PRN Hypoglycemia Protocol Glu
--- NOTE | 2023-09-27 16:06 | PM.IMPN ---
Progress Note: A&P Assessment and Plan (1) Delirium: Code(s): R41.0 - Disorientation, unspecified Status: Acute (2) Hypertension: Qualifiers: Hypertension type: primary hypertension Qualified Code(s): I10 - Essential (primary) hypertension Code(s): I10 - Essential (primary) hypertension Status: Acute (3) Chronic obstructive pulmonary disease: Qualifiers: COPD type: unspecified COPD Qualified Code(s): J44.9 - Chronic obstructive pulmonary disease, unspecified Code(s): J44.9 - Chronic obstructive pulmonary disease, unspecified Status: Acute (4) Diabetic foot ulcer: Qualifiers: Diabetic foot ulcer location: toe Diabetes mellitus type: type 2 Laterality: left Non-pressure ulcer stage: with necrosis of bone Qualified Code(s): E11.621 - Type 2 diabetes mellitus with foot ulcer; L97.524 - Non-pressure chronic ulcer of other 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 Code(s): E11.621 - Type 2 diabetes mellitus with foot ulcer; L97.509 - Non-pressure chronic ulcer of other part of unspecified foot with unspecified severity Status: Acute (5) Osteomyelitis of toe of right foot: Code(s): M86.9 - Osteomyelitis, unspecified Status: Acute Plan #right heel osteomylelitis, cellulitis -ABx: unasyn 09/25 -continue antibiotics IV, we have deescalated -with continue wound VAC dressing changes -patient may need a graft application right heel in the future -cultures pending -PT/OT/SP # delirium -patient appears to have increasing confusion today -we have done delirium workup with LP cultures -patient removing his gown, continue with sitter -will continue monitor with delirium precautions -patient's be negative, acyclovir was discontinued #dysphagia -worsening symptoms from old CVA? -yesterday was advanced to pureed diet, will continue monitor #chronic conditions -HLD: aspirin, statin -seizure disorder: on tegretol -HTN: coreg -DMII: sliding scale insulin, accucheck ACHS, hypoglycemia protocol, a1c 6.7 last checked Diet:?pureed diet with thin liquids as per speech therapy DVT ppx:?SQ heparin Code status:?Full code Disposition:?>3 days Subjective Date/time seen: 09/27/23 16:06 Interval history: Patient seen and examined. Is not very easy understand, garbled speech. he does want to advance his diet however we will to wait for speech therapy to re-evaluate. He wishes change a pureed diet yesterday. But speaking continuing follow-up with VAC. patient may need an outpatient graft application. Appears to be getting increasingly confused, removing gown. Patient denies fever, chills, nausea, vomiting or diarrhea. Review of Systems Review of Systems: 10 point ROS complete, negative other than what is specified in HPI. Exam Narrative: - GENERAL:? Confused male in no acute distress. - EYES: EOMI. Anicteric. - HENT: Moist mucous membranes. - LUNGS: Clear to auscultation bilaterally, no wheezing, rhonchi, or rales. - CARDIOVASCULAR: Regular rate and rhythm. No murmur. No JVD. - ABDOMEN: Soft, non-tender and non-distended. No palpable masses. - EXTREMITIES: right heel wrapped, appears to have dry gangrene near heel. Status post history of right great toe amputation, wound VAC in play - NEUROLOGIC: No obvious neurological deficits. Patient - PSYCHIATRIC: Awake, Alert, disoriented. brief moments of aphasia, flat affect - SKIN: No rashes or lesions. Warm. - LYMPH: No cervical lymphadenopathy. Objective Data Vital Signs Vital Signs: Vital Signs - 24 hr 09/26/23 20:06 09/26/23 20:38 09/26/23 20:00 Temperature 36.4 C L Pulse Rate 73 70 Respiratory Rate 16 Blood Pressure 127/76 Pulse Oximetry 98 Oxygen Delivery Room Air 09/27/23 04:55 09/27/23 10:51 09/27/23 14:00 Temperature 36.6 C 36.6 C Pulse Rate 77 77 77 Respiratory Rate 14 18 Blood Pressure 110/54 L 126/54 L Pulse Oximetry 98 98 Oxygen De
[2023-09-27 16:08] LABS: Glucose Point of Care 221 mg/dl (65-105)
[2023-09-27] MEDS: INSULIN ASPART (*BKC) 100 UNITS/ML SUB-Q (17:09)
[2023-09-27 18:45] LABS: Carbamazepine Tegretol 0.4 mcg/mL (4.0-12.0)
[2023-09-27 20:17] VITALS: PULSE 86
[2023-09-27 20:30] VITALS: BP 125/60; PULSE 75; RESP 40; TEMP 36.3; O2SAT 97
[2023-09-27 21:49] LABS: Glucose Point of Care 208 mg/dl (65-105)
[2023-09-27] MEDS: HEPARIN SODIUM 5,000 UNITS/ML VIAL 5000 UNITS SUB-Q (23:55)
[2023-09-28 06:00] VITALS: BP 115/54; PULSE 73; RESP 24; TEMP 36.3; O2SAT 100
[2023-09-28 06:07] LABS: Basophils Absolute Auto 0.1 K/mm3 (0.0-0.1); Basophils Percent Auto 0.6 % (0.2-1.2); Eosinophils Absolute Auto 0.4 K/mm3 (0-0.3); Eosinophils Percent Auto 3.2 % (0-4.4); Hematocrit 33.4 % (42.0-52.0); Hemoglobin 10.7 g/dL (14.0-18.0); Immature Granulocyte Absolute 0.21 K/mm3 (0.00-0.031); Immature Granulocyte Percent A 1.8 % (0-0.5); Lymphocytes Absolute Auto 2.38 K/mm3 (0.9-3.2); Lymphocytes Percent Auto 20.3 % (18.3-44.2); Mean Corpuscular Hemoglobin 30.3 pg (26-34); Mean Corpuscular Volume 94.6 fl (80-100); Mean Platelet Volume 11.1 fl (7.4-10.4); Monocytes Absolute Auto 1.3 K/mm3 (0.1-0.6); Monocytes Percent Auto 11.4 % (2.6-8.5); Neutrophils Absolute Auto 7.3 K/mm3 (1.3-6.7); Neutrophils Percent Auto 62.7 % (45.5-73.1); Platelet Count Result 289 k/mm3 (150-375); Red Blood Count 3.53 M/mm3 (4.6-6.20); Red Cell Distribution Width 15.6 % (11.5-14.5); White Blood Count 11.7 K/mm3 (4.5-10.0)
[2023-09-28] MEDS: AMPICILLIN SULB 3 GM/NS 100 ML 3 GM/100 ML VIAL IVPB ×3 (06:11→18:06)
[2023-09-28] MEDS: HEPARIN SODIUM 5,000 UNITS/ML VIAL 5000 UNITS SUB-Q ×3 (06:11→21:56)
[2023-09-28] MEDS: carBAMazepine 200 MG TABLET PO ×3 (06:11→21:56)
[2023-09-28 06:18] LABS: Alanine Aminotransferase 20 U/L (6-50); Albumin Level 3.3 g/dL (3.5-5.1); Alkaline Phosphatase 61 U/L (38-126); Anion Gap 7 mmol/L (4-12); Aspartate Amino Transferase 26 U/L (17-59); Bilirubin,Total 0.4 mg/dL (0.2-1.3); Blood Urea Nitrogen 14 mg/dL (9-20); Calcium 8.2 mg/dL (8.4-10.2); Carbon Dioxide 23 mmol/L (22-30); Chloride 106 mmol/L (98-107); Estimated CRCL calculation 91 ml/min; Estimated Glomerular Filt Rate > 60; Glucose 149 mg/dL (65-110); Potassium 3.5 mmol/L (3.4-5.0); Sodium 136 mmol/L (137-145)
--- NOTE | 2023-09-28 09:06 | PCPTNOTE ---
Attempted to se patient for PT however patient sleeping soundly and briefly opens eyes before falling back asleep. VIDEO EFFECTS EDITOR states patient woke up for vitals but went back to sleep. PT will continue to follow per plan of care.
--- NOTE | 2023-09-28 11:27 | PCSTNOTE ---
Dr. Walker requested Speech Therapy follow up with this patient secondary to possible new issues swallowing and reduced verbal expression.
--- NOTE | 2023-09-28 11:32 | PM.IMPN ---
Progress Note: A&P Assessment and Plan (1) Delirium: Code(s): R41.0 - Disorientation, unspecified Status: Acute (2) Hypertension: Qualifiers: Hypertension type: primary hypertension Qualified Code(s): I10 - Essential (primary) hypertension Code(s): I10 - Essential (primary) hypertension Status: Acute (3) Chronic obstructive pulmonary disease: Qualifiers: COPD type: unspecified COPD Qualified Code(s): J44.9 - Chronic obstructive pulmonary disease, unspecified Code(s): J44.9 - Chronic obstructive pulmonary disease, unspecified Status: Acute (4) Diabetic foot ulcer: Qualifiers: Diabetic foot ulcer location: toe Diabetes mellitus type: type 2 Laterality: left Non-pressure ulcer stage: with necrosis of bone Qualified Code(s): E11.621 - Type 2 diabetes mellitus with foot ulcer; L97.524 - Non-pressure chronic ulcer of other 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 Code(s): E11.621 - Type 2 diabetes mellitus with foot ulcer; L97.509 - Non-pressure chronic ulcer of other part of unspecified foot with unspecified severity Status: Acute (5) Osteomyelitis of toe of right foot: Code(s): M86.9 - Osteomyelitis, unspecified Status: Acute Plan #right heel osteomylelitis, cellulitis -ABx: unasyn 09/25 -continue antibiotics IV, leukocytosis improving -continue wound VAC dressing changes with Ortho team -patient may need a graft application right heel in the future -cultures NGTD -PT/OT/SP # delirium - confusion may be better than yesterday - his mentation appears to be waxing and waning, continue delirium precautions - I ordered labs for delirium work up: ammonia, vit d, hep, LA, procal, RPR, VBG, B12/folic #dysphagia -worsening symptoms from old CVA? - speech therapy will follow up today # constipation - patient has MiraLax, bowel recently -patient does have some bowel sounds -Added senna and Dulcolax supp #chronic conditions -HLD: aspirin, statin -seizure disorder: on tegretol -HTN: coreg -DMII: sliding scale insulin, accucheck ACHS, hypoglycemia protocol, a1c 6.7 last checked Diet:?pureed diet with thin liquids DVT ppx:?SQ heparin Code status:?Full code Disposition:?>3 days Subjective Date/time seen: 09/28/23 11:32 Interval history: patient seen and examined. He still confused, I have ordered delirium workup. With IV antibiotics his leukocytosis is improving. I will add some more laxatives to his regimen as he has not had a bowel movement documented. He does have some bowel sounds. I have requested speech therapy to follow-up on his diet as he is on a pureed diet. patient denies fever, chills, nausea, vomiting, diarrhea. He answers some questions appropriately. Review of Systems Review of Systems: 10 point ROS complete, negative other than what is specified in HPI. Exam Narrative: - GENERAL:? Confused male in no acute distress. - EYES: EOMI. Anicteric. - HENT: Moist mucous membranes. - LUNGS: Clear to auscultation bilaterally, no wheezing, rhonchi, or rales. - CARDIOVASCULAR: Regular rate and rhythm. No murmur. No JVD. - ABDOMEN: Soft, non-tender and non-distended. No palpable masses. - EXTREMITIES: right heel wrapped, appears to have dry gangrene near heel. Status post history of right great toe amputation, wound VAC in place - NEUROLOGIC: No obvious neurological deficits. - PSYCHIATRIC: Awake, Alert, disoriented. brief moments of aphasia - SKIN: No rashes or lesions. Warm. - LYMPH: No cervical lymphadenopathy. Objective Data Vital Signs Vital Signs: Vital Signs - 24 hr 09/27/23 14:00 09/27/23 20:17 09/27/23 20:30 Temperature 36.6 C 36.3 C L Pulse Rate 77 86 75 Respiratory Rate 18 40 H Blood Pressure 126/54 L 125/60 Pulse Oximetry 98 97 Oxygen Delivery 09/27/23 20:00 09/28/23 06:00 Temperature 36.3 C L Pulse Rate 73 Respiratory Rate 24 H Blood Pressure 115/54
[2023-09-28 11:58] LABS: Procalcitonin 0.1 ng/mL
--- NOTE | 2023-09-28 12:06 | PM.PNORT ---
Progress Note: A&P Assessment and Plan (1) Diabetic ulcer of right heel: Qualifiers: Diabetes mellitus type: type 2 Non-pressure ulcer stage: with necrosis of muscle Qualified Code(s): E11.621 - Type 2 diabetes mellitus with foot ulcer; L97.413 - Non-pressure chronic ulcer of right heel and midfoot with necrosis of muscle Code(s): E11.621 - Type 2 diabetes mellitus with foot ulcer; L97.419 - Non-pressure chronic ulcer of right heel and midfoot with unspecified severity Status: Acute Assessment and Plan: Postoperative day 9 right heel debridement. Wound VAC dressing intact. Ulcer stable at this point with no signs of active infection. Continue IV antibiotics. Wound VAC dressing change today. Continue with Tuesday regimen this week. Will continue to wait for mental status to improve prior to proceeding with more surgery. May be up to chair as tolerated. (2) Encephalopathy: Code(s): G93.40 - Encephalopathy, unspecified Status: Acute Assessment and Plan: Medicine team following. Neurology following. (3) Metabolic acidosis: Code(s): E87.20 - Acidosis, unspecified Status: Acute Assessment and Plan: Medicine team following. Nephrology following. Subjective Subjective Date/Time Seen: 09/28/23 12:06 Post Op day: 9 Principal diagnosis: Right diabetic heel ulcer Interval history: patient in bed. Continues to be nonverbal but more active at this time. Per nurse report shows some purposeful movement and has been eating since the weekend. Exam Const: General: lethargic and average body habitus; No combative or diaphoretic Resp: Effort & Inspection: normal respiratory effort Skin: Wounds: wounds noted (RIGHT Medial Heel Wound ) Extrem: Other: Wound VAC dressing intact. Right heel ulcer clean, no signs of purulence or drainage. Viable surrounding tissue. Dressing removed. Exposed bone appears viable. No evidence of active infection or drainage. Moderate increased slough soft tissue surrounding bone. 50% granulation tissue. Objective Data Vital Signs Vital Signs: Vital Signs - 24 hr 09/27/23 14:00 09/27/23 20:17 09/27/23 20:30 Temperature 97.8 F 97.4 F L Pulse Rate 77 86 75 Respiratory Rate 18 40 H Blood Pressure 126/54 L 125/60 Pulse Oximetry 98 97 Oxygen Delivery 09/27/23 20:00 09/28/23 06:00 Temperature 97.3 F L Pulse Rate 73 Respiratory Rate 24 H Blood Pressure 115/54 L Pulse Oximetry 100 Oxygen Delivery Room Air Intake/Output Intake/Output: Intake & Output 09/25/23 09/26/23 09/27/23 09/28/23 23:59 23:59 23:59 23:59 Intake Total 3930 1701 1799 200 Output Total 750 1200 350 Balance 3180 501 1449 200 Meds/Results Medications: Active Medications Generic Name Dose Route Start Last Admin Trade Name Freq PRN Reason Stop Dose Admin Acetaminophen 650 mg 09/17/23 06:25 09/27/23 10:42 Acetaminophen 325 Mg Tablet PO 650 mg Q4H PRN Administration Mild Pain (1-3) or Fever Hydrocodone Bitart/Acetaminophen 1 tab 09/27/23 12:41 09/27/23 20:17 Hydrocodone/Acetaminophen (*Crx) 5-325 Mg Tablet PO 1 tab Q6H PRN Administration Pain Rated 4-6 Aspirin 81 mg 09/18/23 09:00 09/27/23 10:42 Aspirin 81 Mg Enteric Tablet PO 81 mg DAILY LEAH Administration Atorvastatin Calcium 40 mg 09/18/23 09:00 09/27/23 10:42 Atorvastatin 40 Mg Tablet PO 40 mg DAILY LEAH Administration Calcium Carbonate 400 mg 09/18/23 11:04 09/19/23 01:35 Calcium Carbonate (Tums) 500 Mg (200 Mg Elemental) PO 400 mg Q6H PRN Administration Indigestion Carbamazepine 200 mg 09/21/23 06:30 09/28/23 06:11 Carbamazepine 200 Mg Tablet PO 200 mg Q8HR LEAH Administration Carvedilol 3.125 mg 09/17/23 21:00 09/27/23 20:17 Carvedilol 3.125 Mg Tablet PO 3.125 mg Q12HR LEAH Administration Dextrose 12.5 gm 09/17/23 06:25 Dextrose 50% 25 Gm/
[2023-09-28 12:16] LABS: Hepatitis B Surface Antigen Negative (Negative)
[2023-09-28 12:21] LABS: Ammonia < 9 umol/L (9-30)
[2023-09-28 12:22] LABS: Fractional Inspired Oxygen 24 %; HCO3 VBG 26.4 mEq/l (24.0-30.0); PCO2 VBG 41.8 mmHg (42.0-48.0)
[2023-09-28 12:22] LABS: HAV RESULT Negative (Negative); Hepatitis B Core IgM Result Negative (Negative)
[2023-09-28 12:23] LABS: Device NASAL CANNULA; PO2 VBG < 27.0 mmHg (35.0-45.0); pH VBG 7.419 (7.300-7.400)
[2023-09-28 12:34] LABS: Hepatitis C Virus Antibody Negative (Negative)
[2023-09-28 12:43] VITALS: PULSE 84
[2023-09-28] MEDS: ATORVASTATIN 40 MG TABLET PO (12:43)
[2023-09-28] MEDS: polyethylene glycoL 3350 17 GM POWD.PACK PO (12:43)
[2023-09-28] MEDS: ASPIRIN 81 MG ENTERIC TABLET PO (12:43)
[2023-09-28] MEDS: carvediloL 3.125 MG TABLET PO ×2 (12:43→21:56)
[2023-09-28] MEDS: THERAPEUTIC MULTIVITAMINS/MINERALS TAB (*BKC) 1 TABLET PO (12:43)
[2023-09-28] MEDS: BISACODYL 10 MG SUPPOSITORY RECTAL (12:47)
[2023-09-28 12:48] LABS: Folic Acid 10.8 ng/mL (2.76->20)
[2023-09-28] MEDS: HYDROcodone/acetaminophen (*CRX) 5-325 MG TABLET 1 TAB PO (13:52)
[2023-09-28 14:00] VITALS: BP 112/59; PULSE 68; RESP 20; TEMP 36.3; O2SAT 98
[2023-09-28 14:40] LABS: Rapid Plasma Reagin Non-Reactive (NonReactive)
--- NOTE | 2023-09-28 15:50 | PCSTNOTE ---
Please refer to the Bedside Swallow Evaluation in the EMR. Please note, silent aspiration cannot be ruled out at bedside.
[2023-09-28 16:38] LABS: Glucose Point of Care 163 mg/dl (65-105)
[2023-09-28 16:38] LABS: Glucose Point of Care 154 mg/dl (65-105)
[2023-09-28 16:38] LABS: Glucose Point of Care 229 mg/dl (65-105)
[2023-09-28] MEDS: MORPHINE SULFATE (*CRX) 2 MG/ML INJ IV PUSH ×2 (16:41→21:57)
[2023-09-28] MEDS: INSULIN ASPART (*BKC) 100 UNITS/ML SUB-Q (16:50)
[2023-09-28] MEDS: LORazepam INJ (*CRX) 2 MG/ML VIAL (19:02)
[2023-09-28 20:00] VITALS: PULSE 73; RESP 20; O2SAT 98
[2023-09-28 21:20] VITALS: BP 155/82; PULSE 73; RESP 20; TEMP 36.3; O2SAT 98
[2023-09-28 21:51] LABS: Glucose Point of Care 181 mg/dl (65-105)
[2023-09-28] MEDS: SENNA/DOCUSATE SODIUM TABLET 1 TAB PO (21:57)
[2023-09-29] MEDS: LORazepam INJ (*CRX) 2 MG/ML VIAL 0.5 MG IV PUSH (00:30)
[2023-09-29] MEDS: HYDROcodone/acetaminophen (*CRX) 10-325 MG TABLET 1 TAB PO (00:31)
[2023-09-29] MEDS: AMPICILLIN SULB 3 GM/NS 100 ML 3 GM/100 ML VIAL IVPB ×5 (00:31→23:09)
[2023-09-29] MEDS: HEPARIN SODIUM 5,000 UNITS/ML VIAL 5000 UNITS SUB-Q ×3 (05:16→21:42)
[2023-09-29] MEDS: carBAMazepine 200 MG TABLET PO ×3 (05:16→21:40)
[2023-09-29 05:55] VITALS: BP 133/82; PULSE 75; RESP 18; TEMP 36.1; O2SAT 99
[2023-09-29 06:53] LABS: Hematocrit 35.4 % (42.0-52.0); Hemoglobin 11.2 g/dL (14.0-18.0); Mean Corpuscular HGB Conc 31.6 g/dl (32-36); Mean Corpuscular Hemoglobin 29.9 pg (26-34); Mean Corpuscular Volume 94.4 fl (80-100); Mean Platelet Volume 11.4 fl (7.4-10.4); Platelet Count Result 277 k/mm3 (150-375); Red Blood Count 3.75 M/mm3 (4.6-6.20); Red Cell Distribution Width 16.4 % (11.5-14.5); White Blood Count 11.4 K/mm3 (4.5-10.0)
[2023-09-29 07:02] LABS: Anion Gap 4 mmol/L (4-12); Blood Urea Nitrogen 10 mg/dL (9-20); Calcium 8.5 mg/dL (8.4-10.2); Carbon Dioxide 25 mmol/L (22-30); Chloride 103 mmol/L (98-107); Estimated CRCL calculation 82 ml/min; Estimated Glomerular Filt Rate > 60; Glucose 140 mg/dL (65-110); Potassium 3.9 mmol/L (3.4-5.0); Sodium 132 mmol/L (137-145)
[2023-09-29 07:41] VITALS: BP 120/77; PULSE 82; O2SAT 96
[2023-09-29] MEDS: carvediloL 3.125 MG TABLET PO ×2 (07:41→21:41)
[2023-09-29] MEDS: ASPIRIN 81 MG ENTERIC TABLET PO (07:41)
[2023-09-29] MEDS: THERAPEUTIC MULTIVITAMINS/MINERALS TAB (*BKC) 1 TABLET PO (07:41)
[2023-09-29] MEDS: ATORVASTATIN 40 MG TABLET PO (07:41)
[2023-09-29] MEDS: polyethylene glycoL 3350 17 GM POWD.PACK PO (07:42)
[2023-09-29 08:41] LABS: Glucose Point of Care 138 mg/dl (65-105)
--- NOTE | 2023-09-29 08:45 | PCOTNOTE ---
Attempted to see Patient at this time. Patient having difficulty staying aroused/alert. Patient unable to assist in feeding himself or being fed at this time. RN present and aware
--- NOTE | 2023-09-29 11:42 | PCNFU ---
Nutrition Follow-Up Complete: Inadequate energy intake related to diet order as evidenced by clear liquid status Goal:Diet advanced PO intake 75% of meals Pt meeting goals, continue with same goal of 75% intake of meals. Pt current nutrition is Minced and moist level 5, Ensure Clear QID. Nutrition recommendation: continue with current plan of care Last recorded weight is 95.4 kg. Bowel Motility: +BM 09/27 Labs Reviewed: Hgb:11.2, HCT:35.4, NA:132 Meds Noted: novolog, zofran, heparin Skin: no skin issues noted Additional Notes: Pt diet advanced to minced and moist level 5 per TECHNICAL OPERATIONS MANAGER recommendations. Ensure clear QID ordered. Intake 75-100% most meals at this time. Agree with diet orders Monitor diet orders, intake, wt, labs. Follow up in 5 days
--- NOTE | 2023-09-29 11:58 | PM.IMPN ---
Progress Note: A&P Assessment and Plan (1) Delirium: Code(s): R41.0 - Disorientation, unspecified Status: Acute (2) Hypertension: Qualifiers: Hypertension type: primary hypertension Qualified Code(s): I10 - Essential (primary) hypertension Code(s): I10 - Essential (primary) hypertension Status: Acute (3) Chronic obstructive pulmonary disease: Qualifiers: COPD type: unspecified COPD Qualified Code(s): J44.9 - Chronic obstructive pulmonary disease, unspecified Code(s): J44.9 - Chronic obstructive pulmonary disease, unspecified Status: Acute (4) Diabetic foot ulcer: Qualifiers: Diabetic foot ulcer location: toe Diabetes mellitus type: type 2 Laterality: left Non-pressure ulcer stage: with necrosis of bone Qualified Code(s): E11.621 - Type 2 diabetes mellitus with foot ulcer; L97.524 - Non-pressure chronic ulcer of other 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 Code(s): E11.621 - Type 2 diabetes mellitus with foot ulcer; L97.509 - Non-pressure chronic ulcer of other part of unspecified foot with unspecified severity Status: Acute (5) Osteomyelitis of toe of right foot: Code(s): M86.9 - Osteomyelitis, unspecified Status: Acute Plan #right heel osteomylelitis, cellulitis -ABx: unasyn 09/25 -continue antibiotics IV, leukocytosis improving -continue wound VAC dressing changes with Ortho team, MWF. ortho anticipating possible repeat debridement -patient may need a graft application right heel in the future -cultures NGTD -PT/OT/SP # delirium - persistent confusion - his mentation appears to be waxing and waning, continue delirium precautions - I ordered labs for delirium work up: ammonia, vit d, hep, LA, procal, RPR, VBG, B12/folic - started PRN ativan #dysphagia -worsening symptoms from old CVA? -evaluated by speech 09/27, advanced to minced and moist diet # constipation - patient has MiraLax, senna, responded to dulcolax #chronic conditions -HLD: aspirin, statin -seizure disorder: on tegretol -HTN: coreg -DMII: sliding scale insulin, accucheck ACHS, hypoglycemia protocol, a1c 6.7 last checked Diet: minced and moist diet DVT ppx:?SQ heparin Code status:?Full code Disposition:?>3 days, possibly further debridement Subjective Date/time seen: 09/29/23 11:58 Interval history: patient seen and examined. his delirium appears to be stable. Wound dressing changes again tomorrow. he is tolerating his meds and moist diet. He was getting increasing confused overnight the needed p.r.n. Ativan. We will continue IV antibiotics. Patient's mentation waxes and wanes. He denies fever, chills, nausea vomiting, diarrhea. Review of Systems Review of Systems: 10 point ROS complete, negative other than what is specified in HPI. Exam Narrative: - GENERAL:? Confused male in no acute distress. - EYES: EOMI. Anicteric. - HENT: Moist mucous membranes. - LUNGS: Clear to auscultation bilaterally, no wheezing, rhonchi, or rales. - CARDIOVASCULAR: Regular rate and rhythm. No murmur. No JVD. - ABDOMEN: Soft, non-tender and non-distended. No palpable masses. - EXTREMITIES: right heel wrapped, appears to have dry gangrene near heel. Status post history of right great toe amputation, wound VAC in place - NEUROLOGIC: No obvious neurological deficits. - PSYCHIATRIC: Awake, Alert, disoriented. brief moments of aphasia continue to happen - SKIN: No rashes or lesions. Warm. - LYMPH: No cervical lymphadenopathy. Objective Data Vital Signs Vital Signs: Vital Signs - 24 hr 09/28/23 12:43 09/28/23 14:00 09/28/23 21:20 Temperature 36.3 C L 36.3 C L Pulse Rate 84 68 73 Respiratory Rate 20 20 Blood Pressure 112/59 L 155/82 H Pulse Oximetry 98 98 Oxygen Delivery 09/28/23 20:00 09/29/23 07:41 09/29/23 07:41 Temperature Pulse Rate 73 82 82 Respiratory Rate 20 Blood Pressure 120/77 Pulse Oximetry 98 96
[2023-09-29 12:08] LABS: Glucose Point of Care 169 mg/dl (65-105)
--- NOTE | 2023-09-29 12:27 | PM.PNORT ---
Progress Note: A&P Assessment and Plan (1) Diabetic ulcer of right heel: Qualifiers: Diabetes mellitus type: type 2 Non-pressure ulcer stage: with necrosis of muscle Qualified Code(s): E11.621 - Type 2 diabetes mellitus with foot ulcer; L97.413 - Non-pressure chronic ulcer of right heel and midfoot with necrosis of muscle Code(s): E11.621 - Type 2 diabetes mellitus with foot ulcer; L97.419 - Non-pressure chronic ulcer of right heel and midfoot with unspecified severity Status: Acute Assessment and Plan: Postoperative day 10 right heel debridement. Wound VAC dressing intact. Ulcer stable at this point with no signs of active infection. Continue IV antibiotics. Wound VAC dressing change Tuesday regimen. Will continue to wait for mental status to improve prior to proceeding with more surgery. May be up to chair as tolerated. (2) Encephalopathy: Code(s): G93.40 - Encephalopathy, unspecified Status: Acute Assessment and Plan: Medicine team following. Neurology following. (3) Metabolic acidosis: Code(s): E87.20 - Acidosis, unspecified Status: Acute Assessment and Plan: Medicine team following. Nephrology following. Subjective Subjective Date/Time Seen: 09/29/23 12:27 Post Op day: 10 Principal diagnosis: Right diabetic heel ulcer Interval history: Patient is in bed. He remains lethargic but did respond to verbal stimuli and reported that he was thirsty to me today. Otherwise, not answering questions appropriately. Review of Systems Review of Systems: ROS unobtainable: Yes unobtainable due to mental status Exam Const: General: lethargic and average body habitus; No combative or diaphoretic Resp: Effort & Inspection: normal respiratory effort Skin: Wounds: wounds noted (RIGHT Medial Heel Wound ) Extrem: Other: Wound VAC dressing intact. Right heel ulcer clean, no signs of purulence or drainage. Viable surrounding tissue. Objective Data Vital Signs Vital Signs: Vital Signs - 24 hr 09/28/23 12:43 09/28/23 14:00 09/28/23 21:20 Temperature 36.3 C L 36.3 C L Pulse Rate 84 68 73 Respiratory Rate 20 20 Blood Pressure 112/59 L 155/82 H Pulse Oximetry 98 98 Oxygen Delivery 09/28/23 20:00 09/29/23 07:41 09/29/23 07:41 Temperature Pulse Rate 73 82 82 Respiratory Rate 20 Blood Pressure 120/77 Pulse Oximetry 98 96 Oxygen Delivery Room Air 09/29/23 05:55 Temperature 36.1 C L Pulse Rate 75 Respiratory Rate 18 Blood Pressure 133/82 Pulse Oximetry 99 Oxygen Delivery Intake/Output Intake/Output: Intake & Output 09/26/23 09/27/23 09/28/23 09/29/23 23:59 23:59 23:59 23:59 Intake Total 1701 1799 1510 200 Output Total 1200 350 475 Balance 501 1449 1510 -275 Meds/Results Medications: Active Medications Generic Name Dose Route Start Last Admin Trade Name Freq PRN Reason Stop Dose Admin Acetaminophen 650 mg 09/17/23 06:25 09/27/23 10:42 Acetaminophen 325 Mg Tablet PO 650 mg Q4H PRN Administration Mild Pain (1-3) or Fever Hydrocodone Bitart/Acetaminophen 1 tab 09/27/23 12:41 09/28/23 13:52 Hydrocodone/Acetaminophen (*Crx) 5-325 Mg Tablet PO 1 tab Q6H PRN Administration Pain Rated 4-6 Hydrocodone Bitart/Acetaminophen 1 tab 09/28/23 16:16 09/29/23 00:31 Hydrocodone/Acetaminophen (*Crx) 10-325 Mg Tablet PO 1 tab Q6H PRN Administration Pain Rated 7-10 Aspirin 81 mg 09/18/23 09:00 09/29/23 07:41 Aspirin 81 Mg Enteric Tablet PO 81 mg DAILY LEAH Administration Atorvastatin Calcium 40 mg 09/18/23 09:00 09/29/23 07:41 Atorvastatin 40 Mg Tablet PO 40 mg DAILY LEAH Administration Calcium Carbonate 400 mg 09/18/23 11:04 09/19/23 01:35 Calcium Carbonate (Tums) 500 Mg (200 Mg Elemental) PO 400 mg Q6H PRN Administration Indigestion Carbamazepine 200 mg 09/21/23 06:30 09/29/23 05:16 Carbamazepine 2
--- NOTE | 2023-09-29 12:48 | PCSTNOTE ---
Attempted to see patient for speech therapy at bedside. He appeared confused and was unable to answer questions. Will remain on schedule to be seen tomorrow.
[2023-09-29 14:00] VITALS: BP 158/57; PULSE 78; RESP 18; TEMP 35.9; O2SAT 100
[2023-09-29 16:21] LABS: Glucose Point of Care 199 mg/dl (65-105)
[2023-09-29] MEDS: HALOPERIDOL LACTATE 5 MG/ML VIAL IV PUSH (19:00)
[2023-09-29] MEDS: diphenhydrAMINE HCl INJ 50 MG/ML VIAL IV PUSH (19:38)
[2023-09-29] MEDS: LORazepam INJ (*CRX) 2 MG/ML VIAL 1 MG IV PUSH (19:39)
[2023-09-29 20:00] VITALS: PULSE 113; RESP 24; O2SAT 97
--- NOTE | 2023-09-29 20:03 | PC.NURSE ---
Pt frequently non-redirectable throughout day. Approx 1600, pt became agitated, on all fours in bed. Sitter to bedside. Dose of PRN ativan given. Called MD as pt still trying to climb out of bed. Received order for 1 time dose IV haldol and start of seroquel. Pt asleep approx 90 minutes. 1850 pt awakened again trying to climb out bed and pulling at wound vac. Pt yelling and fighting. Call to MD for soft restraints; order received. Handed over to night charge who called for additional meds.
[2023-09-29] MEDS: SENNA/DOCUSATE SODIUM TABLET 1 TAB PO (21:40)
[2023-09-29 21:41] VITALS: PULSE 90
[2023-09-29] MEDS: QUEtiapine FUMARATE 25 MG TABLET PO (21:42)
[2023-09-29 22:00] VITALS: PULSE 113; RESP 24; TEMP 36.1; O2SAT 97
--- NOTE | 2023-09-29 23:33 | PC.NURSE ---
Pt was bladder scanned after urination. Bladder scan read 390. Straight cath attempted by this rn, another rn, and the house detective all were unable to advance the catheter passed the prostate to relieve the urine. Will attempt again with another size straight cath.
[2023-09-30] VITALS (8 sets, daily range): BP systolic 102–140; BP diastolic 77–87; PULSE 66–98; RESP 13–21; TEMP 36.4–36.8; O2SAT 97–100
--- NOTE | 2023-09-30 02:45 | PC.NURSE ---
Pt bladder scanned by pct. Pt retaining 670 mL of urine. Will attempt straight cath once more before obtaining urology consult and calling online marketing manager urologist.
--- NOTE | 2023-09-30 03:56 | PC.NURSE ---
Urology consult order obtained. Urology exchange was called by this RN. Dr Levine returned the phone call and stated that he will pass the pt along to the day team. Dr requested urojet be ordered and urology cart placed at bedside. front desk supervisor aware.
[2023-09-30] MEDS: AMPICILLIN SULB 3 GM/NS 100 ML 3 GM/100 ML VIAL IVPB ×4 (05:13→23:15)
[2023-09-30] MEDS: carBAMazepine 200 MG TABLET PO ×2 (05:13→21:10)
[2023-09-30] MEDS: HEPARIN SODIUM 5,000 UNITS/ML VIAL 5000 UNITS SUB-Q ×2 (05:13→21:09)
[2023-09-30 07:13] LABS: Hematocrit 36.7 % (42.0-52.0); Hemoglobin 11.9 g/dL (14.0-18.0); Mean Corpuscular HGB Conc 32.4 g/dl (32-36); Mean Corpuscular Hemoglobin 30.1 pg (26-34); Mean Corpuscular Volume 92.9 fl (80-100); Mean Platelet Volume 11.7 fl (7.4-10.4); Platelet Count Result 293 k/mm3 (150-375); Red Blood Count 3.95 M/mm3 (4.6-6.20); Red Cell Distribution Width 16.2 % (11.5-14.5); White Blood Count 14.9 K/mm3 (4.5-10.0)
[2023-09-30 07:24] LABS: Anion Gap 9 mmol/L (4-12); Blood Urea Nitrogen 11 mg/dL (9-20); Calcium 8.9 mg/dL (8.4-10.2); Carbon Dioxide 19 mmol/L (22-30); Chloride 107 mmol/L (98-107); Estimated CRCL calculation 82 ml/min; Estimated Glomerular Filt Rate > 60; Glucose 171 mg/dL (65-110); Potassium 3.9 mmol/L (3.4-5.0); Sodium 135 mmol/L (137-145)
--- NOTE | 2023-09-30 07:57 | PC.NURSE ---
Per report, urology was consulted last PM due to unsuccessful attempts at straight cath. Will hold AM medications until contact with urology is made.
[2023-09-30 08:01] LABS: Glucose Point of Care 167 mg/dl (65-105)
--- NOTE | 2023-09-30 08:15 | WPDURCON ---
Assessment and Plan Assessment and plan (1) Retention of urine: Code(s): R33.9 - Retention of urine, unspecified Status: Acute Assessment and Plan: Bladder scan >[address] catheter at bedside He will go to OR today for cystoscopy, urethral dilation, and complex catheter placement with Dr. Taylor. Obtain consent. Continue NPO diet. (2) Urethral stricture: Code(s): N35.919 - Unspecified urethral stricture, male, unspecified site Status: Acute Assessment and Plan: History of urethral stricture requiring dilation in 02/2022 and 01/2023 Plan for OR today for urethral dilation (3) BPH (benign prostatic hyperplasia): Qualifiers: Lower urinary tract symptom detail: unspecified Lower urinary tract symptom presence: symptoms present Qualified Code(s): N40.1 - Benign prostatic hyperplasia with lower urinary tract symptoms Code(s): N40.0 - Benign prostatic hyperplasia without lower urinary tract symptoms Status: Acute Assessment and Plan: Maintained on tamsulosin and finasteride; discontinued during this admission on 09/24/23. Will resume Urology Consult Note HPI Date Seen: 09/30/23 Requesting Physician: Marivel Roberson DO Primary Care Provider: Rylee IslasMD Consult Narrative Narrative: Baldev Qiu is a 63 year old male with complex medical history who is admitted for osteomyelitis and altered mental status and is being seen in consultation for evauation of urinary retention. He is poorly responsive and not able to provide any history. Review of EMR demonstrates a history of urethral stricture requiring dilation in 02/2022 and 01/2023 as well as a history of BPH, maintained on tamsulosin and finasteride. He has reportedly had difficulty urinating for several days and had been monitored with q6h bladder scans. It was noted that his last bladder scan showed 600 cc of urine. Several attempts were made at catheterization by nursing staff which were unsuccessful. The patient has not indicated any pain or discomfort and has been sleeping. His WBC is 14.9. Creatinine 0.9. UA on admission was unremarkable. CT on presentation showed mildly enlarged prostate. I was unable to place a 16 Fr coude catheter at the bedside. Review of Systems Review of Systems: ROS unobtainable: Yes unobtainable due to mental status PMFSH Past Medical History Medical History (Updated 04/06/24 @ 15:12 by Sal Mnote MD) Cerebrovascular accident (06/2021) It sounds as though he had an ischemic stroke (symptoms include vertigo and visual changes) with hemorrhagic conversion. Chronic anemia Chronic obstructive pulmonary disease Coronary artery disease Status post bifurcation stents to the LAD and diagonal in 2006, stent to the LAD for in-stent restenoses in 2009, and CABG in April 2021 at [facility]. Diabetic foot ulcer Diabetic ulcer of right heel Encounter for postoperative care Gastroesophageal reflux disease Hypertension Kidney stones ILANA on CPAP Osteomyelitis of toe of right foot Peripheral arterial occlusive disease Personal history of noncompliance with medical treatment and regimen Seizure disorder Type 2 diabetes mellitus Surgical History Surgical History (Updated 09/18/23 @ 10:02 by Alondra Onofre MD) History of amputation of left great toe History of amputation of right great toe 03/11/23 History of coronary artery bypass graft (04/2021) Done at [facility]. History of inguinal hernia repair times 2 History of myringoplasty History of percutaneous coronary intervention Bifurcation stents to LAD and diagonal in 2006. Stent to the LAD in 2009. (three stents) Family History Family History Mother Family history of diabetes mellitus in first degree relative Other Diabetes mellitus Hypertension Social History Social History (Reviewed 09/17/23 @
--- NOTE | 2023-09-30 09:35 | ECG_ITS ---
SEE SCANNED COPY FOR CONFIRMED REPORT MTDD
[2023-09-30 12:02] LABS: Glucose Point of Care 178 mg/dl (65-105)
--- NOTE | 2023-09-30 12:04 | PC.NURSE ---
Surgery in to take patient to OR
--- NOTE | 2023-09-30 12:12 | PCPTNOTE ---
The patient treatment was not able to be completed at this time due to going to surgery to have catheter placed. Will plan to continue treatment per plan of care.
--- NOTE | 2023-09-30 12:13 | PC.NURSE ---
Patient off of unit to surgery
[2023-09-30] MEDS: LACTATED RINGERS 1,000 ML 30 ML IV CONT (12:15)
--- NOTE | 2023-09-30 12:44 | WPDANESEPPF ---
Anes - Initial Pre Proc Eval Procedure: Operation Date: 09/19/23 10:00 Proposed Procedures p Debridement Right Foot Ulcer - Rashid Flower MD Operation Date: 09/22/23 07:30 Proposed Procedures p Right Foot Debridement, Graft Application - Rashid Flower MD Operation Date: 09/30/23 13:00 Proposed Procedures p Cystoscopy, Urethral Dilatation - Kisha Taylor MD Date/Time: 09/30/23 12:44 Surgeon: Marivel Roberson DO Pre Op Diagnosis: Diabetic Foot Wound/Hypokalemia Patient Data Age: 63 Gender: M Height: 1.83 m Weight: 95.4 kg Last Vital Signs Temp 36.4 C L 09/30/23 06:00 Pulse 78 09/30/23 06:00 Resp 20 09/30/23 06:00 BP 132/79 09/30/23 06:00 Pulse Ox 97 09/30/23 06:00 O2 Del Method Room Air 09/29/23 20:00 O2 Flow Rate 10 09/19/23 10:30 Allergies Allergy/AdvReac Type Severity Reaction Status Date / Time metoclopramide AdvReac Mild Vomiting Verified 09/16/23 23:39 Home Medications Medication Instructions Recorded Confirmed Type aspirin 81 mg tablet,delayed 81 mg PO DAILY 09/05/21 09/17/23 History release (Adult Low Dose Aspirin) atorvastatin 40 mg tablet (Lipitor) 40 mg PO DAILY 09/05/21 09/17/23 History carvedilol 3.125 mg tablet (Coreg) 3.125 mg PO Q12H 09/05/21 09/17/23 History empagliflozin 10 mg tablet 10 mg PO DAILY 09/05/21 09/17/23 History (Jardiance) fenofibrate 160 mg tablet 160 mg PO DAILY 09/05/21 09/17/23 History lisinopril 5 mg tablet (Zestril) 5 mg PO DAILY 09/05/21 09/17/23 History carbamazepine 200 mg tablet 200 mg PO Q8HR #90 tabs 09/07/21 09/17/23 Rx insulin glargine 100 unit/mL (3 45 unit subcut HS 03/11/22 09/17/23 History mL) subcutaneous pen (Lantus Solostar U-100 Insulin) finasteride 5 mg tablet (Proscar) 5 mg PO QAM 30 days #30 tabs 01/29/23 09/17/23 Rx tamsulosin 0.4 mg capsule 0.4 mg PO QAM 30 days #30 caps 01/29/23 09/17/23 Rx Laboratory Tests 09/22/23 09/29/23 09/30/23 14:55 16:18 06:49 WBC RBC Hgb Hct MCV MCH MCHC RDW Plt Count MPV Sodium Potassium Chloride Carbon Dioxide Anion Gap BUN Creatinine Estim Creat Clear Calc Estimated GFR Glucose POC Capillary Glucose 199 H mg/dl (65-105) Calcium Magnesium Vitamin B1 TSH 2.280 uIU/mL (0.465-4.680) CSF Lyme IgG Antibody see below CSF Lyme IgG (Immblot) see below CSF Lyme IgM Antibody see below CSF Lyme IgM (Immblot) see below Lyme IgG Bands Present Not Reportable Lyme IgM Bands Present 09/30/23 09/30/23 09/30/23 06:51 07:54 10:13 WBC 14.9 H K/mm3 (4.5-10.0) RBC 3.95 L M/mm3 (4.6-6.20) Hgb 11.9 L g/dL (14.0-18.0) Hct 36.7 L % (42.0-52.0) MCV 92.9 fl (80-100) MCH 30.1 pg (26-34) MCHC 32.4 g/dl (32-36) RDW 16.2 H % (11.5-14.5) Plt Count 293 k/mm3 (150-375) MPV 11.7 H fl (7.4-10.4) Sodium 135 L mmol/L (137-145) Potassium 3.9 mmol/L (3.4-5.0) Chloride 107 mmol/L (98-107) Carbon Dioxide 19 L mmol/L (22-30) Anion Gap 9 mmol/L (4-12) BUN 11 mg/dL (9-20) Creatinine 0.90 mg/dL (0.7-1.3) Estim Creat Clear Calc 82 ml/min Estimated GFR > 60 (59 - ) Glucose 171 H mg/dL (65-110) POC Capillary Glucose 167 H mg/dl (65-105) Calcium 8.9 mg/dL (8.4-10.2) Magnesium 2.0 mg/dL (1.6-2.3) Vitamin B1 Pending TSH CSF Lyme IgG Antibody CSF Lyme IgG (Immblot) CSF Lyme IgM Antibody CS
--- NOTE | 2023-09-30 12:46 | WPDHPUPDATE1 ---
History and Physical Update Update Date/Time: 09/30/23 12:46 History and Physical has been reviewed, including an updated exam of the patient. There are NO changes in the patient's condition. Risks, benefits, and alternatives have been discussed and questions answered. Patient agrees to proceed with procedure.
--- NOTE | 2023-09-30 13:18 | PM.PNORT ---
Progress Note: A&P Assessment and Plan (1) Diabetic ulcer of right heel: Qualifiers: Diabetes mellitus type: type 2 Non-pressure ulcer stage: with necrosis of muscle Qualified Code(s): E11.621 - Type 2 diabetes mellitus with foot ulcer; L97.413 - Non-pressure chronic ulcer of right heel and midfoot with necrosis of muscle Code(s): E11.621 - Type 2 diabetes mellitus with foot ulcer; L97.419 - Non-pressure chronic ulcer of right heel and midfoot with unspecified severity Status: Acute Assessment and Plan: Postoperative day 11 right heel debridement. Wound VAC dressing changed today. Ulcer stable at this point with no signs of active infection. Continue IV antibiotics. Wound VAC dressing to be changed Tuesday. Will continue to wait for mental status to improve prior to proceeding with more surgery. May be up to chair as tolerated. Antibiotics to be determined by medicine team in regards to discharge planning. (2) Encephalopathy: Code(s): G93.40 - Encephalopathy, unspecified Status: Acute Assessment and Plan: Medicine team following. Neurology following. (3) Metabolic acidosis: Code(s): E87.20 - Acidosis, unspecified Status: Acute Assessment and Plan: Medicine team following. Nephrology following. Subjective Subjective Date/Time Seen: 09/30/23 13:18 Post Op day: 11 Principal diagnosis: Right diabetic heel ulcer Interval history: Patient is in bed. Now in restraints. Awake but not responding to questions appropriately. Review of Systems Review of Systems: ROS unobtainable: Yes unobtainable due to mental status Exam Const: General: lethargic and average body habitus; No combative or diaphoretic Resp: Effort & Inspection: normal respiratory effort Skin: Wounds: wounds noted (RIGHT Medial Heel Wound ) Extrem: Other: Wound VAC dressing intact. Dressing changed. Right heel ulcer clean, no signs of purulence or drainage. Viable surrounding tissue. Objective Data Vital Signs Vital Signs: Vital Signs - 24 hr 09/29/23 14:00 09/29/23 21:41 09/29/23 22:00 Temperature 35.9 C L 36.1 C L Pulse Rate 78 90 113 H Respiratory Rate 18 24 H Blood Pressure 158/57 H Pulse Oximetry 100 97 Oxygen Delivery 09/29/23 20:00 09/30/23 06:00 09/30/23 12:17 Temperature 36.4 C L 36.8 C Pulse Rate 113 H 78 87 Respiratory Rate 24 H 20 18 Blood Pressure 132/79 137/77 Pulse Oximetry 97 97 97 Oxygen Delivery Room Air Room Air Intake/Output Intake/Output: Intake & Output 09/27/23 09/28/23 09/29/23 09/30/23 23:59 23:59 23:59 23:59 Intake Total 1799 1510 1100 100 Output Total 350 475 Balance 1449 1510 625 100 Meds/Results Medications: Active Medications Generic Name Dose Route Start Last Admin Trade Name Freq PRN Reason Stop Dose Admin Acetaminophen 650 mg 09/17/23 06:25 09/27/23 10:42 Acetaminophen 325 Mg Tablet PO 650 mg Q4H PRN Administration Mild Pain (1-3) or Fever Hydrocodone Bitart/Acetaminophen 1 tab 09/27/23 12:41 09/28/23 13:52 Hydrocodone/Acetaminophen (*Crx) 5-325 Mg Tablet PO 1 tab Q6H PRN Administration Pain Rated 4-6 Hydrocodone Bitart/Acetaminophen 1 tab 09/28/23 16:16 09/29/23 00:31 Hydrocodone/Acetaminophen (*Crx) 10-325 Mg Tablet PO 1 tab Q6H PRN Administration Pain Rated 7-10 Aspirin 81 mg 09/18/23 09:00 09/30/23 10:40 Aspirin 81 Mg Enteric Tablet PO Not Given DAILY LEAH Atorvastatin Calcium 40 mg 09/18/23 09:00 09/30/23 10:40 Atorvastatin 40 Mg Tablet PO Not Given DAILY LEAH Calcium Carbonate 400 mg 09/18/23 11:04 09/19/23 01:35 Calcium Carbonate (Tums) 500 Mg (200 Mg Elemental) PO 400 mg Q6H PRN Administration Indigestion Carbamazepine 200 mg 09/21/23 06:30 09/30/23 05:13 Carbamazepine 200 Mg Tablet PO 200 mg Q8HR LEAH Administration Carvedilol 3.125 mg 09/17/23 21:00 09/30/23 09:
[2023-09-30] MEDS: LIDOCAINE HCL 2% GEL UROJET 10 ML PKG MUCOUS MEM (13:28)
--- NOTE | 2023-09-30 13:44 | W.PM.PROC2 ---
Procedure Note - Detailed Date of Procedure 09/30/23 Pre-op Diagnosis Urethral stricture Post-op Diagnosis Same Procedure Performed Cystoscopy, urethral dilation, complex Osorio catheter insertion, retrograde urethrogram, cystogram Surgeon Kisha Taylor MD Anesthesia MAC Findings 8 F bulbar urethral stricture Description of Procedure Informed consent was obtained. Patient taken the operating room. He was given sedation. A lidocaine Uro jet was used. We then performed a retrograde urethrogram that revealed a bulbar urethral stricture. We then advanced a flexible cystoscope to the level of the stricture which is approximately 8 F. we were able to manipulate a wire through the stricture into the bladder confirmed on fluoroscopy. Over the wire we used Amplatz urethral dilating set to dilate from 8 F to 20 F. We then inserted a flexible cystoscope and were able to be placed into the bladder. The patient had mild bladder trabeculation, mild prostatic hyperplasia, bulbar urethral stricture was noted to be dilated and have a length of approximately 1 to 2 cm. Over the wire we then advanced a 16 F Osorio catheter. Catheter placement was confirmed with a cystogram. The catheter was then left to gravity drainage patient was taken to recovery room in stable condition Estimated Blood Loss 20 Urine Output 475 Drains Yes (Sixteen F [place] tip catheter) Complications No immediate complications Condition Stable Disposition PACU
--- NOTE | 2023-09-30 15:08 | PM.IMPN ---
Progress Note: A&P Assessment and Plan (1) Delirium: Code(s): R41.0 - Disorientation, unspecified Status: Acute (2) Hypertension: Qualifiers: Hypertension type: primary hypertension Qualified Code(s): I10 - Essential (primary) hypertension Code(s): I10 - Essential (primary) hypertension Status: Acute (3) Chronic obstructive pulmonary disease: Qualifiers: COPD type: unspecified COPD Qualified Code(s): J44.9 - Chronic obstructive pulmonary disease, unspecified Code(s): J44.9 - Chronic obstructive pulmonary disease, unspecified Status: Acute (4) Diabetic foot ulcer: Qualifiers: Diabetic foot ulcer location: toe Diabetes mellitus type: type 2 Laterality: left Non-pressure ulcer stage: with necrosis of bone Qualified Code(s): E11.621 - Type 2 diabetes mellitus with foot ulcer; L97.524 - Non-pressure chronic ulcer of other 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 Code(s): E11.621 - Type 2 diabetes mellitus with foot ulcer; L97.509 - Non-pressure chronic ulcer of other part of unspecified foot with unspecified severity Status: Acute (5) Osteomyelitis of toe of right foot: Code(s): M86.9 - Osteomyelitis, unspecified Status: Acute Plan #right heel osteomylelitis, cellulitis -ABx: unasyn 09/25 -continue antibiotics IV, with worsening leukocytosis may need to re-assess ABx -continue wound VAC dressing changes with Ortho team, MWF. ortho anticipating possible repeat debridement -patient may need a graft application right heel in the future -cultures NGTD -PT/OT/SP # delirium - persistent confusion - his mentation appears to be waxing and waning, continue delirium precautions - I ordered labs for delirium work up: ammonia, vit d, hep, LA, procal, RPR, VBG, B12/folic - started seroquel nightly will increase dose to 50mg, PRN ativan. At times needs a sitter and/or restraints #dysphagia -worsening symptoms from old CVA? -evaluated by speech 09/27, advanced to minced and moist diet # constipation - patient has MiraLax, senna, responded to dulcolax #chronic conditions -HLD: aspirin, statin -seizure disorder: on tegretol -HTN: coreg -DMII: sliding scale insulin, accucheck ACHS, hypoglycemia protocol, a1c 6.7 last checked Diet: minced and moist diet DVT ppx:?SQ heparin Code status:?Full code Disposition:?SNF in >3 days Subjective Date/time seen: 09/30/23 15:08 Interval history: Patient seen and examined. Patient having urinary retention and urology team was unable to place Osorio catheter. Plan for OR for ureteral dilation, cystoscopy, Osorio catheter placement. We are resuming finasterid and flomax. patient's leukocytosis is worsening up to 14,000, he still is very confused and delirious. Will need to continue trending leukocytosis over the weekend to evaluate which antibiotics are most appropriate for long-term management. Patient is currently on unasyn. Review of Systems Review of Systems: 10 point ROS complete, negative other than what is specified in HPI. Exam Narrative: - GENERAL:? Confused male in no acute distress. - EYES: EOMI. Anicteric. - HENT: Moist mucous membranes. - LUNGS: Clear to auscultation bilaterally, no wheezing, rhonchi, or rales. - CARDIOVASCULAR: Regular rate and rhythm. No murmur. No JVD. - ABDOMEN: Soft, non-tender and non-distended. No palpable masses. - EXTREMITIES: right heel wrapped, appears to have dry gangrene near heel. Status post history of right great toe amputation, wound VAC in place - NEUROLOGIC: No obvious neurological deficits. - PSYCHIATRIC: Awake, Alert, disoriented. brief moments of aphasia continue to happen - SKIN: No rashes or lesions. Warm. - LYMPH: No cervical lymphadenopathy. Objective Data Vital Signs Vital Signs: Vital Signs - 24 hr 09/29/23 21:41 09/29/23 22:00 09/29/23 20:00 Temperature 36.1 C L Pulse Rate 90 113 H 113 H Respiratory Rate 2
--- NOTE | 2023-09-30 15:25 | PC.NURSE ---
Patient returned from the OR at this time patient alert and oriented x 2, bed bath given at this time.
[2023-09-30 16:28] LABS: Glucose Point of Care 160 mg/dl (65-105)
[2023-09-30] MEDS: HYDROcodone/acetaminophen (*CRX) 5-325 MG TABLET 1 TAB PO (20:55)
[2023-09-30] MEDS: LORazepam INJ (*CRX) 2 MG/ML VIAL 0.5 MG IV PUSH (20:56)
[2023-09-30] MEDS: SENNA/DOCUSATE SODIUM TABLET 1 TAB PO (21:10)
[2023-09-30] MEDS: carvediloL 3.125 MG TABLET PO (21:10)
[2023-09-30] MEDS: QUEtiapine FUMARATE 25 MG TABLET 50 MG PO (21:11)
[2023-09-30 21:18] LABS: Glucose Point of Care 195 mg/dl (65-105)
[2023-10-01] MEDS: MORPHINE SULFATE (*CRX) 2 MG/ML INJ IV PUSH (01:53)
[2023-10-01 05:15] VITALS: BP 124/80; PULSE 78; RESP 24; TEMP 36.2; O2SAT 98
[2023-10-01] MEDS: AMPICILLIN SULB 3 GM/NS 100 ML 3 GM/100 ML VIAL IVPB ×3 (05:30→16:56)
[2023-10-01] MEDS: carBAMazepine 200 MG TABLET PO ×3 (05:31→20:49)
[2023-10-01] MEDS: HEPARIN SODIUM 5,000 UNITS/ML VIAL 5000 UNITS SUB-Q ×3 (05:31→20:50)
[2023-10-01 06:37] LABS: Hematocrit 36.1 % (42.0-52.0); Hemoglobin 11.6 g/dL (14.0-18.0); Mean Corpuscular HGB Conc 32.1 g/dl (32-36); Mean Corpuscular Hemoglobin 30.4 pg (26-34); Mean Corpuscular Volume 94.5 fl (80-100); Mean Platelet Volume 12.2 fl (7.4-10.4); Platelet Count Result 281 k/mm3 (150-375); Red Blood Count 3.82 M/mm3 (4.6-6.20); Red Cell Distribution Width 16.8 % (11.5-14.5); White Blood Count 12.3 K/mm3 (4.5-10.0)
[2023-10-01 06:56] LABS: Anion Gap 11 mmol/L (4-12); Blood Urea Nitrogen 13 mg/dL (9-20); Calcium 8.8 mg/dL (8.4-10.2); Carbon Dioxide 18 mmol/L (22-30); Chloride 106 mmol/L (98-107); Estimated CRCL calculation 74 ml/min; Estimated Glomerular Filt Rate > 60; Glucose 140 mg/dL (65-110); Magnesium 2.1 mg/dL (1.6-2.3); Potassium 3.9 mmol/L (3.4-5.0); Sodium 135 mmol/L (137-145)
[2023-10-01 07:47] LABS: Glucose Point of Care 147 mg/dl (65-105)
[2023-10-01] MEDS: THERAPEUTIC MULTIVITAMINS/MINERALS TAB (*BKC) 1 TABLET PO (08:49)
[2023-10-01] MEDS: ASPIRIN 81 MG ENTERIC TABLET PO (08:49)
[2023-10-01] MEDS: ATORVASTATIN 40 MG TABLET PO (08:49)
[2023-10-01] MEDS: TAMSULOSIN HCL 0.4 MG CAPSULE PO (08:49)
[2023-10-01] MEDS: FINASTERIDE 5 MG TABLET PO (08:49)
[2023-10-01] MEDS: polyethylene glycoL 3350 17 GM POWD.PACK PO (08:49)
[2023-10-01 08:50] VITALS: PULSE 78
[2023-10-01] MEDS: carvediloL 3.125 MG TABLET PO ×2 (08:50→20:50)
[2023-10-01 08:52] VITALS: PULSE 78; O2SAT 93
--- NOTE | 2023-10-01 09:39 | PC.NURSE ---
Patient placed in soft wrist restraints overnight at 0200 due to impulsiveness, pulling out IV lines and attempting to pull out saldaña catheter/wound vac.
--- NOTE | 2023-10-01 10:49 | PCPTNOTE ---
Attempted to see pt- pt was unable to follow any cues for participation at this time. Will cont per POC
[2023-10-01 11:10] LABS: Glucose Point of Care 174 mg/dl (65-105)
--- NOTE | 2023-10-01 12:43 | PCOTNOTE ---
Per RN, pt is not appropriate at this time for participation in therapy treatment due to poor alertness/awareness. Will attempt tomorrow if appropriate.
[2023-10-01 14:00] VITALS: BP 122/103; PULSE 82; RESP 14; TEMP 36.3; O2SAT 96
--- NOTE | 2023-10-01 16:14 | PM.IMPN ---
Progress Note: A&P Assessment and Plan (1) Delirium: Code(s): R41.0 - Disorientation, unspecified Status: Acute (2) Sepsis: Code(s): A41.9 - Sepsis, unspecified organism Status: Acute (3) Altered mental status: Code(s): R41.82 - Altered mental status, unspecified Status: Acute Plan Leukocytosis down trending. His delirium is improved since 1st onset but not yet resolved. Continue to treat with antibiotics and consider expanding the differential and workup tomorrow if no better. Have also discontinued his [place] and morphine as these can precipitate and worsen delirium. Seroquel had been started nightly at 50 mg we can continue that for now. Full code. Stable. Heparin subcutaneous. Subjective Date/time seen: 10/01/23 16:14 Interval history: No acute overnight events. The patient remains in restraints. He reports he would like to eat dinner otherwise has no complaints. Review of Systems Review of Systems: All systems reviewed & are unremarkable except as noted in HPI and below (Subjective) Exam Const: General: comfortable and no acute distress Other: At times can be agitated and has outbursts. Has to be redirected often Eyes: Pupils: Equal, round and reactive pupils present Resp: Effort & Inspection: normal respiratory effort Auscultation: clear to auscultation bilaterally Cardio: Rate: regular rate Rhythm: regular rhythm GI: GI Palp: Yes Soft to palpation and No Tenderness to palpation present (GI) Extrem: General: no edema Objective Data Vital Signs Vital Signs: Vital Signs - 24 hr 09/30/23 21:10 09/30/23 21:15 10/01/23 05:15 Temperature 97.5 F L 97.2 F L Pulse Rate 66 91 78 Respiratory Rate 16 24 H Blood Pressure 132/84 124/80 Pulse Oximetry 98 98 Oxygen Delivery 10/01/23 08:50 10/01/23 08:52 10/01/23 08:00 Temperature Pulse Rate 78 78 Respiratory Rate Blood Pressure Pulse Oximetry 93 Oxygen Delivery Room Air Room Air 10/01/23 14:00 Temperature 97.4 F L Pulse Rate 82 Respiratory Rate 14 Blood Pressure 122/103 H Pulse Oximetry 96 Oxygen Delivery Intake/Output Intake/Output: Intake & Output 09/28/23 09/29/23 09/30/23 10/01/23 23:59 23:59 23:59 23:59 Intake Total 1510 1100 1152 640 Output Total 475 605 500 Balance 1510 625 547 140 Meds/Results Medications: Active Medications Generic Name Dose Route Start Last Admin Trade Name Freq PRN Reason Stop Dose Admin Acetaminophen 650 mg 09/17/23 06:25 09/27/23 10:42 Acetaminophen 325 Mg Tablet PO 650 mg Q4H PRN Administration Mild Pain (1-3) or Fever Aspirin 81 mg 09/18/23 09:00 10/01/23 08:49 Aspirin 81 Mg Enteric Tablet PO 81 mg DAILY LEAH Administration Atorvastatin Calcium 40 mg 09/18/23 09:00 10/01/23 08:49 Atorvastatin 40 Mg Tablet PO 40 mg DAILY LEAH Administration Calcium Carbonate 400 mg 09/18/23 11:04 09/19/23 01:35 Calcium Carbonate (Tums) 500 Mg (200 Mg Elemental) PO 400 mg Q6H PRN Administration Indigestion Carbamazepine 200 mg 09/21/23 06:30 10/01/23 14:02 Carbamazepine 200 Mg Tablet PO 200 mg Q8HR LEAH Administration Carvedilol 3.125 mg 09/17/23 21:00 10/01/23 08:50 Carvedilol 3.125 Mg Tablet PO 3.125 mg Q12HR LEAH Administration Dextrose 12.5 gm 09/17/23 06:25 Dextrose 50% 25 Gm/50 Ml Syringe IV PUSH PRN PRN Hypoglycemia Protocol Finasteride 5 mg 10/01/23 09:00 10/01/23 08:49 Finasteride 5 Mg Tablet PO 5 mg QAM LEAH Administration Glucagon 1 mg 09/17/23 06:25 Glucagon For Inj 1 Mg Vial IM PRN PRN Hypoglycemia Protocol Glucose 15 gm 09/17/23 06:25 Glucose Oral Gel 15 Gm Of Glucse In 37.5 Gm Tube PO PRN PRN Hypoglycemia Protocol Heparin Sodium (Porcine) 5,000 units 09/27/23 22:00 10/01/23 14:02 Heparin Sodium 5,000 Units/Ml Vial SUB-Q 5,000 units Q8HR LEAH Administr
[2023-10-01 16:24] LABS: Glucose Point of Care 221 mg/dl (65-105)
[2023-10-01] MEDS: INSULIN ASPART (*BKC) 100 UNITS/ML SUB-Q (16:56)
--- NOTE | 2023-10-01 17:32 | PC.NURSE ---
Verbal order obtained from Dr. Mead at 1730 on 10/01/2023 to renew order for soft restraints.
[2023-10-01] MEDS: SENNA/DOCUSATE SODIUM TABLET 1 TAB PO (20:50)
[2023-10-01] MEDS: QUEtiapine FUMARATE 25 MG TABLET 50 MG PO (20:50)
[2023-10-01 21:00] LABS: Glucose Point of Care 127 mg/dl (65-105)
[2023-10-01 22:00] VITALS: BP 104/69; PULSE 88; RESP 18; TEMP 36.6; O2SAT 97
[2023-10-02] MEDS: AMPICILLIN SULB 3 GM/NS 100 ML 3 GM/100 ML VIAL IVPB ×5 (00:54→23:38)
[2023-10-02 05:49] LABS: Basophils Absolute Auto 0.1 K/mm3 (0.0-0.1); Basophils Percent Auto 0.7 % (0.2-1.2); Eosinophils Absolute Auto 0.4 K/mm3 (0-0.3); Eosinophils Percent Auto 3.1 % (0-4.4); Hematocrit 37.5 % (42.0-52.0); Hemoglobin 11.8 g/dL (14.0-18.0); Immature Granulocyte Absolute 0.09 K/mm3 (0.00-0.031); Immature Granulocyte Percent A 0.7 % (0-0.5); Lymphocytes Absolute Auto 3.25 K/mm3 (0.9-3.2); Lymphocytes Percent Auto 26.9 % (18.3-44.2); Mean Corpuscular HGB Conc 31.5 g/dl (32-36); Mean Corpuscular Hemoglobin 30.3 pg (26-34); Mean Corpuscular Volume 96.4 fl (80-100); Mean Platelet Volume 12.1 fl (7.4-10.4); Monocytes Percent Auto 16.3 % (2.6-8.5); Neutrophils Absolute Auto 6.3 K/mm3 (1.3-6.7); Neutrophils Percent Auto 52.3 % (45.5-73.1); Platelet Count Result 300 k/mm3 (150-375); Red Blood Count 3.89 M/mm3 (4.6-6.20); Red Cell Distribution Width 17.2 % (11.5-14.5); White Blood Count 12.1 K/mm3 (4.5-10.0)
[2023-10-02 06:00] VITALS: BP 112/70; PULSE 87; RESP 18; TEMP 36.3; O2SAT 98
[2023-10-02 06:08] LABS: Alanine Aminotransferase 39 U/L (6-50); Albumin Level 3.7 g/dL (3.5-5.1); Alkaline Phosphatase 82 U/L (38-126); Anion Gap 10 mmol/L (4-12); Aspartate Amino Transferase 38 U/L (17-59); Bilirubin,Total 0.5 mg/dL (0.2-1.3); Blood Urea Nitrogen 16 mg/dL (9-20); Calcium 9.2 mg/dL (8.4-10.2); Carbon Dioxide 19 mmol/L (22-30); Chloride 107 mmol/L (98-107); Estimated CRCL calculation 74 ml/min; Estimated Glomerular Filt Rate > 60; Glucose 141 mg/dL (65-110); Magnesium 2.1 mg/dL (1.6-2.3); Potassium 4.2 mmol/L (3.4-5.0); Sodium 136 mmol/L (137-145)
[2023-10-02] MEDS: carBAMazepine 200 MG TABLET PO ×3 (06:11→22:14)
[2023-10-02] MEDS: HEPARIN SODIUM 5,000 UNITS/ML VIAL 5000 UNITS SUB-Q ×3 (06:11→22:14)
[2023-10-02 06:32] LABS: Procalcitonin 0.1 ng/mL
[2023-10-02 07:25] LABS: Glucose Point of Care 140 mg/dl (65-105)
[2023-10-02 08:00] VITALS: PULSE 95; RESP 18; O2SAT 98
[2023-10-02 09:30] VITALS: BP 112/55; PULSE 95
[2023-10-02] MEDS: FINASTERIDE 5 MG TABLET PO (09:30)
[2023-10-02] MEDS: ATORVASTATIN 40 MG TABLET PO (09:30)
[2023-10-02] MEDS: THERAPEUTIC MULTIVITAMINS/MINERALS TAB (*BKC) 1 TABLET PO (09:30)
[2023-10-02] MEDS: carvediloL 3.125 MG TABLET PO ×2 (09:30→20:23)
[2023-10-02] MEDS: polyethylene glycoL 3350 17 GM POWD.PACK PO (09:31)
[2023-10-02] MEDS: TAMSULOSIN HCL 0.4 MG CAPSULE PO (09:31)
[2023-10-02] MEDS: ASPIRIN 81 MG ENTERIC TABLET PO (09:32)
--- NOTE | 2023-10-02 10:59 | PC.NURSE ---
On 10/02/23, the student, Brielle, provided care and completed [facility] on [facility]. I have reviewed the student's documentation and agree with the findings.
[2023-10-02 11:30] LABS: Glucose Point of Care 240 mg/dl (65-105)
--- NOTE | 2023-10-02 11:33 | WPDNEUROPN ---
Progress Note: A&P Assessment and Plan (1) Encephalopathy: Code(s): G93.40 - Encephalopathy, unspecified Status: Acute (2) Leukocytosis: Code(s): D72.829 - Elevated white blood cell count, unspecified Status: Acute Plan Mr. Qiu is a 63 year old male with a history of diabetes, prior stroke, ILANA, peripheral artery disease, BPH, HTN, COPD, epilepsy. He underwent debridement of R foot wound on 09/19/23 with general anesthesia. He has had MRI brain which did not show any acute changes, LP with CSF evaluation with only cell count of 1 and normal protein/negative culture, and routine EEG which showed nonspecific diffuse slowing. CSF HSV PCR was negative. Overall he appears to have improved since the last time I saw him on 09/22, but not completely back to baseline. He denied any daily alcohol use to me today, so alcohol withdrawal encephalopathy unlikely. Seems most consistent with delirium and possibly medication effect (had still been receiving pain meds until yesterday). If mental status does not continue to improve, consider repeating MRI and routine EEG. CSF results can be unrevealing in autoimmune encephalitis panel, which I think is less likely in him given the improvement so far, but still a a consideration. Subjective Date/time seen: 10/02/23 11:33 Interval history: Mr. Qiu is a 63 year old male with a history of diabetes, prior stroke, ILANA, peripheral artery disease, BPH, HTN, COPD, epilepsy. He underwent debridement of R foot wound on 09/19/23 with general anesthesia. Since then he has been veryconfused. Work-up so far includes MRI of the brain which shows an old infarct in the R thalamic and occpital regions as well as bilateral cerebellar. Spinal tap has been done -- CSF cell count only 1 and normal protein. CSF culture negative for organism. HSV PCR negative as well. Routine EEG showed diffuse slowing, but non specific. Pain medications were recommended to be discontinued at the time of my last evaluation, but in the past week it seems he has received PRN morphine and hydrocodone. Review of Systems Review of Systems: ROS unobtainable: Yes unobtainable due to mental status Exam Const: General: comfortable and no acute distress HENMT: Mouth: Yes moist mucous membranes Eyes: Other: conjugate gaze Resp: Effort & Inspection: normal respiratory effort Skin: General skin exam: normal color Neuro: Other: Awake, alert, sitting up in bed, eating lunch, oriented to self and location. Able to follow commands with some redirection, speech somewhat slurred but understandable. Mentioned that he was still hungry after his lunch and that he has to go to the bathroom. Moving upper and lower extremities against gravity. Extrem: Other: R foot bandaged Objective Data Vital Signs Vital Signs: Vital Signs - 24 hr 10/01/23 14:00 10/01/23 22:00 10/02/23 06:00 Temperature 36.3 C L 36.6 C 36.3 C L Pulse Rate 82 88 87 Respiratory Rate 14 18 18 Blood Pressure 122/103 H 104/69 112/70 Pulse Oximetry 96 97 98 Oxygen Delivery 10/02/23 09:30 10/02/23 08:00 Temperature Pulse Rate 95 95 Respiratory Rate 18 Blood Pressure Pulse Oximetry 98 Oxygen Delivery Room Air Intake/Output Intake/Output: Intake & Output 09/29/23 09/30/23 10/01/23 10/02/23 23:59 23:59 23:59 23:59 Intake Total 1100 1152 980 420 Output Total 734 746 3302 975 Balance 625 440 -428 -946 Meds/Results Medications: Active Medications Generic Name Dose Route Start Last Admin Trade Name Freq PRN Reason Stop Dose Admin Acetaminophen 650 mg 09/17/23 06:25 09/27/23 10:42 Acetaminophen 325 Mg Tablet PO 650 mg Q4H PRN Administration Mild Pain (1-3) or Fever Aspirin 81 mg 09/18/23 09:00 10/02/23 09:32 Aspirin 81 Mg Enteric Tablet PO 81 mg DAILY LEAH Administration Atorvastatin Calcium 40 mg 09/18/23 09:00 10/02/23 09:30 Atorvastatin 40 Mg Tablet PO 40 mg DAILY LEAH
[2023-10-02] MEDS: INSULIN ASPART (*BKC) 100 UNITS/ML SUB-Q ×2 (11:45→18:11)
--- NOTE | 2023-10-02 13:21 | PM.IMPN ---
Progress Note: A&P Assessment and Plan (1) Delirium: Code(s): R41.0 - Disorientation, unspecified Status: Acute (2) Cerebrovascular accident: Onset Date: 06/2021 Code(s): I63.9 - Cerebral infarction, unspecified Status: Chronic Plan This is a 63-year-old male with history of CAD status post stent and bypass, right toe amputation, insulin-dependent diabetes mellitus, hypertension, COPD, ILANA, peripheral artery disease, BPH, epilepsy. Patient presented with right foot pain. He is status post debridement of right foot wound on 09/18 with general anesthesia and now has a wound VAC. the patient has no previously recorded dementia or cognitive disturbance and has had delirium while inpatient. #Delirium -improved status post discontinuation of narcotics and sedatives. He was also started on Seroquel 50 mg q.h.s.. Avoid pharmacological restraints at all cause. Use physical restraints 1st. -neurology following. Appreciate recommendations. Due to monitoring consider repeat MRI an EEG. -promote good sleep-wake cycle. Instructions have been placed in the system for the nursing team. #Right heel osteomyelitis/cellulitis -leukocytosis down trending. -culture from debridement on 09/18 demonstrating mixed bacterial timoteo with heavy growth of peptostreptococcus species. Continue ampicillin. -continue wound VAC and wound care per surgery and Wound Care team. Dressing to be changed Tuesday. May need repeat surgery. -continue PT OT #Urinary retention -status post cystoscopy urethral dilation complex Osorio catheter insertion retrograde urethrogram cystogram on 09/30/2023. Urology plans to keep Osorio in for 7 in 10 days and voiding trial in the outpatient setting. -continue Flomax and Proscar #Dysphagia -unclear etiology although may be worsening symptoms from old CVA. -evaluated by speech therapy on 09/27. Advanced amidst a moist diet #Constipation -continue bowel regimen with MiraLax and Senokot S tablet #Seizure disorder -continue carbamazepine. -carbamazepine serum level low. Likely to be causing his delirium #Hypertension -currently controlled #Insulin-dependent type 2 diabetes mellitus -blood sugars controlled. Continue Accu-Cheks with sliding scale and hypoglycemia protocol FEN: Diet. Saline lock IV. GI prophylaxis: Not indicated DVT prophylaxis: Heparin subQ 5000 units t.i.d. Lines: Peripheral IV. Osorio catheter Code Status: Full code Dispo: Stable. Previously lived at home with his and son and was independent. Likely will go for group home placement for wound VAC care and the antibiotics. Subjective Date/time seen: 10/02/23 13:21 Interval history: No acute overnight events. Patient is slow to respond to questions but eventually gets there. No complaints. He was able to transfer to the chair with guard assist from the [employer]. He is eating and feeding himself. Review of Systems Review of Systems: All systems reviewed & are unremarkable except as noted in HPI and below (Subjective) Exam Const: General: comfortable and no acute distress Other: Follows commands. A&O x1. Delayed cognitive response Eyes: Pupils: Equal, round and reactive pupils present Resp: Effort & Inspection: normal respiratory effort Auscultation: clear to auscultation bilaterally Cardio: Rate: regular rate Rhythm: regular rhythm GI: GI Palp: Yes Soft to palpation and No Tenderness to palpation present (GI) Extrem: General: no edema Objective Data Vital Signs Vital Signs: Vital Signs - 24 hr 10/01/23 14:00 10/01/23 22:00 10/02/23 06:00 Temperature 97.4 F L 97.8 F 97.3 F L Pulse Rate 82 88 87 Respiratory Rate 14 18 18 Blood Pressure 122/103 H 104/69 112/70 Pulse Oximetry 96 97 98 Oxygen Delivery 10/02/23 09:30 10/02/23 08:00 Temperature Pulse Rate 95 95 Respiratory Rate 18 Blood Pressure Pulse Oximetry 98 Oxygen Delivery Room Air Intake/O
[2023-10-02 14:47] VITALS: BP 112/55; PULSE 82; RESP 20; TEMP 36.4; O2SAT 98
[2023-10-02 16:10] LABS: Glucose Point of Care 207 mg/dl (65-105)
[2023-10-02] MEDS: ACETAMINOPHEN 325 MG TABLET 650 MG PO (20:22)
[2023-10-02 20:23] VITALS: PULSE 80
[2023-10-02] MEDS: QUEtiapine FUMARATE 25 MG TABLET 50 MG PO (20:23)
[2023-10-02] MEDS: SENNA/DOCUSATE SODIUM TABLET 1 TAB PO (20:23)
[2023-10-02 21:12] LABS: Glucose Point of Care 116 mg/dl (65-105)
[2023-10-02 22:00] VITALS: BP 118/76; PULSE 79; RESP 22; TEMP 36.5; O2SAT 97
[2023-10-03] MEDS: AMPICILLIN SULB 3 GM/NS 100 ML 3 GM/100 ML VIAL IVPB (05:25)
[2023-10-03] MEDS: carBAMazepine 200 MG TABLET PO ×3 (05:25→20:39)
[2023-10-03] MEDS: HEPARIN SODIUM 5,000 UNITS/ML VIAL 5000 UNITS SUB-Q ×3 (05:25→20:39)
[2023-10-03 06:00] VITALS: BP 116/65; PULSE 97; RESP 20; TEMP 36.4; O2SAT 100
[2023-10-03 06:01] LABS: Basophils Absolute Auto 0.1 K/mm3 (0.0-0.1); Basophils Percent Auto 0.6 % (0.2-1.2); Eosinophils Absolute Auto 0.4 K/mm3 (0-0.3); Eosinophils Percent Auto 3.4 % (0-4.4); Hemoglobin 11.6 g/dL (14.0-18.0); Immature Granulocyte Percent A 0.9 % (0-0.5); Lymphocytes Absolute Auto 2.62 K/mm3 (0.9-3.2); Lymphocytes Percent Auto 23.2 % (18.3-44.2); Mean Corpuscular HGB Conc 31.4 g/dl (32-36); Mean Corpuscular Hemoglobin 29.9 pg (26-34); Mean Corpuscular Volume 95.4 fl (80-100); Mean Platelet Volume 12.5 fl (7.4-10.4); Monocytes Absolute Auto 2.3 K/mm3 (0.1-0.6); Monocytes Percent Auto 20.2 % (2.6-8.5); Neutrophils Absolute Auto 5.8 K/mm3 (1.3-6.7); Neutrophils Percent Auto 51.7 % (45.5-73.1); Platelet Count Result 306 k/mm3 (150-375); Red Blood Count 3.88 M/mm3 (4.6-6.20); Red Cell Distribution Width 16.9 % (11.5-14.5); White Blood Count 11.3 K/mm3 (4.5-10.0)
[2023-10-03 06:10] LABS: Alanine Aminotransferase 33 U/L (6-50); Alkaline Phosphatase 90 U/L (38-126); Anion Gap 10 mmol/L (4-12); Aspartate Amino Transferase 30 U/L (17-59); Bilirubin,Total 0.4 mg/dL (0.2-1.3); Blood Urea Nitrogen 13 mg/dL (9-20); Calcium 9.3 mg/dL (8.4-10.2); Carbon Dioxide 20 mmol/L (22-30); Chloride 107 mmol/L (98-107); Estimated CRCL calculation 74 ml/min; Estimated Glomerular Filt Rate > 60; Glucose 167 mg/dL (65-110); Magnesium 2.1 mg/dL (1.6-2.3); Potassium 4.6 mmol/L (3.4-5.0); Sodium 137 mmol/L (137-145)
[2023-10-03 07:48] LABS: Glucose Point of Care 164 mg/dl (65-105)
[2023-10-03 09:23] VITALS: PULSE 100
[2023-10-03] MEDS: TAMSULOSIN HCL 0.4 MG CAPSULE PO (09:23)
[2023-10-03] MEDS: ASPIRIN 81 MG ENTERIC TABLET PO (09:23)
[2023-10-03] MEDS: FINASTERIDE 5 MG TABLET PO (09:23)
[2023-10-03] MEDS: carvediloL 3.125 MG TABLET PO ×2 (09:23→20:40)
[2023-10-03] MEDS: ATORVASTATIN 40 MG TABLET PO (09:23)
[2023-10-03] MEDS: THERAPEUTIC MULTIVITAMINS/MINERALS TAB (*BKC) 1 TABLET PO (09:23)
[2023-10-03] MEDS: polyethylene glycoL 3350 17 GM POWD.PACK PO (09:24)
[2023-10-03 11:34] LABS: Glucose Point of Care 246 mg/dl (65-105)
[2023-10-03] MEDS: levoFLOXacin 750 MG TABLET PO (12:24)
[2023-10-03] MEDS: DOXYCYCLINE HYCLATE 100 MG TABLET PO ×2 (12:24→20:39)
--- NOTE | 2023-10-03 13:27 | PM.PNORT ---
Progress Note: A&P Assessment and Plan (1) Diabetic ulcer of right heel: Qualifiers: Diabetes mellitus type: type 2 Non-pressure ulcer stage: with necrosis of muscle Qualified Code(s): E11.621 - Type 2 diabetes mellitus with foot ulcer; L97.413 - Non-pressure chronic ulcer of right heel and midfoot with necrosis of muscle Code(s): E11.621 - Type 2 diabetes mellitus with foot ulcer; L97.419 - Non-pressure chronic ulcer of right heel and midfoot with unspecified severity Status: Acute Assessment and Plan: 2 weeks s/p right heel debridement. Wound VAC dressing changed today. Ulcer stable at this point with no signs of active infection. Continue antibiotics, defer treatment to the medicine team given overall medical status. Wound VAC dressing to be changed Tuesday, Tuesday, Tuesday. May be up to chair as tolerated. Antibiotics to be determined by medicine team in regards to discharge planning. Will continue to follow wound in the outpatient setting in the [facility] wound clinic follow up. (2) Encephalopathy: Code(s): G93.40 - Encephalopathy, unspecified Status: Acute Assessment and Plan: Medicine team following. Neurology following. (3) Metabolic acidosis: Code(s): E87.20 - Acidosis, unspecified Status: Acute Assessment and Plan: Medicine team following. Nephrology following. Subjective Subjective Date/Time Seen: 10/03/23 13:27 Post Op day: 2 weeks Principal diagnosis: Right diabetic heel ulcer Interval history: Patient awake, alert. Not answering questions appropriately but talking now. Review of Systems Review of Systems: ROS unobtainable: Yes unobtainable due to mental status Exam Const: General: lethargic and average body habitus; No combative or diaphoretic Resp: Effort & Inspection: normal respiratory effort Skin: Wounds: wounds noted (RIGHT Medial Heel Wound ) Extrem: Other: Wound VAC dressing intact. Dressing changed. Right heel ulcer clean, no signs of purulence or drainage. Viable surrounding tissue. Objective Data Vital Signs Vital Signs: Vital Signs - 24 hr 10/02/23 14:47 10/02/23 20:23 10/02/23 22:00 Temperature 36.4 C 36.5 C Pulse Rate 82 80 79 Respiratory Rate 20 22 H Blood Pressure 112/55 L 118/76 Pulse Oximetry 98 97 Oxygen Delivery 10/02/23 20:00 10/03/23 06:00 10/03/23 09:23 Temperature 36.4 C Pulse Rate 97 100 Respiratory Rate 20 Blood Pressure 116/65 Pulse Oximetry 100 Oxygen Delivery Room Air Intake/Output Intake/Output: Intake & Output 09/30/23 10/01/23 10/02/23 10/03/23 23:59 23:59 23:59 23:59 Intake Total 3197 786 5196 440 Output Total 605 1300 1375 2700 Balance 547 320 205 -5410 Meds/Results Medications: Active Medications Generic Name Dose Route Start Last Admin Trade Name Freq PRN Reason Stop Dose Admin Acetaminophen 650 mg 09/17/23 06:25 10/02/23 20:22 Acetaminophen 325 Mg Tablet PO 650 mg Q4H PRN Administration Mild Pain (1-3) or Fever Aspirin 81 mg 09/18/23 09:00 10/03/23 09:23 Aspirin 81 Mg Enteric Tablet PO 81 mg DAILY LEAH Administration Atorvastatin Calcium 40 mg 09/18/23 09:00 10/03/23 09:23 Atorvastatin 40 Mg Tablet PO 40 mg DAILY LEAH Administration Calcium Carbonate 400 mg 09/18/23 11:04 09/19/23 01:35 Calcium Carbonate (Tums) 500 Mg (200 Mg Elemental) PO 400 mg Q6H PRN Administration Indigestion Carbamazepine 200 mg 09/21/23 06:30 10/03/23 12:24 Carbamazepine 200 Mg Tablet PO 200 mg Q8HR LEAH Administration Carvedilol 3.125 mg 09/17/23 21:00 10/03/23 09:23 Carvedilol 3.125 Mg Tablet PO 3.125 mg Q12HR LEAH Administration Dextrose 12.5 gm 09/17/23 06:25 Dextrose 50% 25 Gm/50 Ml Syringe IV PUSH PRN PRN Hypoglycemia Protocol Doxycycline Hyclate 100 mg 10/03/23 12:00 10/03/23 12:24 Doxycycline Hyclate 100 Mg Tablet PO 10/31/23 23:5
[2023-10-03 14:00] VITALS: BP 123/62; PULSE 88; RESP 16; TEMP 37.1; O2SAT 98
--- NOTE | 2023-10-03 15:33 | PCSTNOTE ---
Therapist observed at breakfast meal. Patient required patient care staff to feed patient as he tended to look around or get distracted in between each bite. No difficulty with mastication or swallowing was noted however patient did not appear to be independent at all with feedings.
--- NOTE | 2023-10-03 16:13 | PM.IMPN ---
Progress Note: A&P Assessment and Plan (1) Delirium: Code(s): R41.0 - Disorientation, unspecified Status: Acute (2) Cerebrovascular accident: Onset Date: 06/2021 Code(s): I63.9 - Cerebral infarction, unspecified Status: Chronic Plan This is a 63-year-old male with history of CAD status post stent and bypass, right toe amputation, insulin-dependent diabetes mellitus, hypertension, COPD, ILANA, peripheral artery disease, BPH, epilepsy. Patient presented with right foot pain. He is status post debridement of right foot wound on 09/18 with general anesthesia and now has a wound VAC. the patient has no previously recorded dementia or cognitive disturbance and has had delirium while inpatient. October 02 update: While over the past few weeks the patient's mentation has slowly improved from anesthesia, past 24 hours have worsened. He now requires physical restraints. He is still aggressive with staff and is a harm to himself while being in restraints. At this point in time it is prudent to calm him. Haldol 1 mg IV x1 and held all 1 mg IM x1. Continue to give antipsychotics and sedatives as necessary but judiciously. Neurology returns tomorrow and we can consider repeat MRI and other studies. Psychiatry consult pending will attempt to call Dr. Cesar again. His encephalopathy appears to be most likely related to osteomyelitis, fortunately his leukocytosis is improving and almost back to normal. The other important consideration is prolonged emergence delirium from seizure. He had anesthesia 3 years ago and reportedly this same episode happened. Continue to appreciate surgery recommendations. Antibiotics from IV to p.o. levofloxacin and doxycycline. He will need to be on this for another 4 weeks which will be 6 weeks post debridement. #Delirium -improved status post discontinuation of narcotics and sedatives. He was also started on Seroquel 50 mg q.h.s.. Avoid pharmacological restraints at all cause. Use physical restraints 1st. -neurology following. Appreciate recommendations. Due to monitoring consider repeat MRI an EEG. -promote good sleep-wake cycle. Instructions have been placed in the system for the nursing team. #Right heel osteomyelitis/cellulitis -leukocytosis down trending. -culture from debridement on 09/18 demonstrating mixed bacterial timoteo with heavy growth of peptostreptococcus species. Continue ampicillin. -continue wound VAC and wound care per surgery and Wound Care team. Dressing to be changed Tuesday. May need repeat surgery. -continue PT OT #Urinary retention -status post cystoscopy urethral dilation complex Osorio catheter insertion retrograde urethrogram cystogram on 09/30/2023. Urology plans to keep Osorio in for 7 in 10 days and voiding trial in the outpatient setting. -continue Flomax and Proscar #Dysphagia -unclear etiology although may be worsening symptoms from old CVA. -evaluated by speech therapy on 09/27. Advanced amidst a moist diet #Constipation -continue bowel regimen with MiraLax and Senokot S tablet #Seizure disorder -continue carbamazepine. -carbamazepine serum level low. Likely to be causing his delirium #Hypertension -currently controlled #Insulin-dependent type 2 diabetes mellitus -blood sugars controlled. Continue Accu-Cheks with sliding scale and hypoglycemia protocol FEN: Diet. Saline lock IV. GI prophylaxis: Not indicated DVT prophylaxis: Heparin subQ 5000 units t.i.d. Lines: Peripheral IV. Osorio catheter Code Status: Full code Dispo: Stable. Previously lived at home with his and son and was independent. Likely will go for [facility] placement for wound VAC care and the antibiotics. Subjective Date/time seen: 10/03/23 16:13 Interval history: Patient becoming increasingly more aggressive and agitated. In spite of being placed on physical restraints he is still trying to climb out of bed. Patient is confused and he wa
[2023-10-03] MEDS: HALOPERIDOL LACTATE 5 MG/ML VIAL 1 MG IV PUSH (16:20)
[2023-10-03] MEDS: HALOPERIDOL LACTATE 5 MG/ML VIAL 1 MG IM (16:20)
[2023-10-03 16:42] LABS: Glucose Point of Care 213 mg/dl (65-105)
[2023-10-03] MEDS: HALOPERIDOL LACTATE 5 MG/ML VIAL 2 MG IV PUSH (18:35)
[2023-10-03] MEDS: INSULIN ASPART (*BKC) 100 UNITS/ML SUB-Q (18:35)
--- NOTE | 2023-10-03 18:40 | PC.NURSE ---
Pt had a sitter until 1500. He had become increasingly more non-redirectable. This RN applied pt restraints to keep him from pulling his saldaña, his wound vac, and climbing out of bed. Physician came by and heard pt yelling for help, attempting to get out of bed, and pulling on tubes/lines. Received order for 1mg IVP AND 1mg IM of haldol one time dose. Sitter still needed at pt bedside. Called MD again. Received order for 2mg haldol IVP one time dose again. At time of administration, pt having visual hallucinations. MD made aware and came to pt bedside.
[2023-10-03 20:19] VITALS: BP 111/75; PULSE 95; RESP 18; TEMP 36.7; O2SAT 99
[2023-10-03 20:24] LABS: Glucose Point of Care 89 mg/dl (65-105)
[2023-10-03] MEDS: QUEtiapine FUMARATE 25 MG TABLET 50 MG PO (20:39)
[2023-10-03] MEDS: SENNA/DOCUSATE SODIUM TABLET 1 TAB PO (20:39)
[2023-10-03 20:40] VITALS: PULSE 95
[2023-10-04 05:31] VITALS: BP 114/72; PULSE 84; RESP 18; TEMP 36.7; O2SAT 96
[2023-10-04] MEDS: HEPARIN SODIUM 5,000 UNITS/ML VIAL 5000 UNITS SUB-Q ×3 (05:54→21:36)
[2023-10-04] MEDS: carBAMazepine 200 MG TABLET PO ×3 (05:54→21:36)
[2023-10-04 06:42] LABS: Basophils Absolute Auto 0.1 K/mm3 (0.0-0.1); Basophils Percent Auto 0.4 % (0.2-1.2); Eosinophils Absolute Auto 0.2 K/mm3 (0-0.3); Eosinophils Percent Auto 1.7 % (0-4.4); Hematocrit 33.8 % (42.0-52.0); Hemoglobin 11.1 g/dL (14.0-18.0); Immature Granulocyte Absolute 0.05 K/mm3 (0.00-0.031); Immature Granulocyte Percent A 0.4 % (0-0.5); Lymphocytes Absolute Auto 1.67 K/mm3 (0.9-3.2); Lymphocytes Percent Auto 13.1 % (18.3-44.2); Mean Corpuscular HGB Conc 32.8 g/dl (32-36); Mean Corpuscular Hemoglobin 30.6 pg (26-34); Mean Corpuscular Volume 93.1 fl (80-100); Mean Platelet Volume 12.1 fl (7.4-10.4); Monocytes Absolute Auto 2.1 K/mm3 (0.1-0.6); Monocytes Percent Auto 16.4 % (2.6-8.5); Neutrophils Absolute Auto 8.7 K/mm3 (1.3-6.7); Platelet Count Result 322 k/mm3 (150-375); Red Blood Count 3.63 M/mm3 (4.6-6.20); Red Cell Distribution Width 16.7 % (11.5-14.5); White Blood Count 12.7 K/mm3 (4.5-10.0)
[2023-10-04 06:57] LABS: Alanine Aminotransferase 27 U/L (6-50); Albumin Level 3.9 g/dL (3.5-5.1); Alkaline Phosphatase 90 U/L (38-126); Anion Gap 12 mmol/L (4-12); Aspartate Amino Transferase 24 U/L (17-59); Bilirubin,Total 0.6 mg/dL (0.2-1.3); Blood Urea Nitrogen 13 mg/dL (9-20); Calcium 9.1 mg/dL (8.4-10.2); Carbon Dioxide 17 mmol/L (22-30); Chloride 106 mmol/L (98-107); Estimated CRCL calculation 74 ml/min; Estimated Glomerular Filt Rate > 60; Glucose 153 mg/dL (65-110); Magnesium 1.9 mg/dL (1.6-2.3); Potassium 3.9 mmol/L (3.4-5.0); Sodium 135 mmol/L (137-145)
[2023-10-04 07:46] LABS: Glucose Point of Care 168 mg/dl (65-105)
--- NOTE | 2023-10-04 09:11 | PM.PNORT ---
Progress Note: A&P Assessment and Plan (1) Diabetic ulcer of right heel: Qualifiers: Diabetes mellitus type: type 2 Non-pressure ulcer stage: with necrosis of muscle Qualified Code(s): E11.621 - Type 2 diabetes mellitus with foot ulcer; L97.413 - Non-pressure chronic ulcer of right heel and midfoot with necrosis of muscle Code(s): E11.621 - Type 2 diabetes mellitus with foot ulcer; L97.419 - Non-pressure chronic ulcer of right heel and midfoot with unspecified severity Status: Acute Assessment and Plan: 2 weeks s/p right heel debridement. Wound VAC dressing changed yesterday. Continue wound VAC and IV antibiotics. Consider plan for debridement with graft application when medically and mentally stable. (2) Encephalopathy: Code(s): G93.40 - Encephalopathy, unspecified Status: Acute Assessment and Plan: Slowly showing signs of improvement including awake and alert, answering questions. Subjective Subjective Date/Time Seen: 10/04/23 09:11 Post Op day: 15 Principal diagnosis: Right diabetic heel ulcer Interval history: patient more awake this morning. Answering questions appropriately. Minimal complaints of right heel pain. Feeding self but oral intake decreased. Exam Const: General: lethargic and average body habitus; No combative or diaphoretic Resp: Effort & Inspection: normal respiratory effort Skin: Wounds: wounds noted (RIGHT Medial Heel Wound ) Extrem: Other: Wound VAC dressing intact. Right heel ulcer clean, no signs of purulence or drainage. Viable surrounding tissue. Foot/ leg without erythema, mild swelling. Objective Data Vital Signs Vital Signs: Vital Signs - 24 hr 10/03/23 09:23 10/03/23 14:00 10/03/23 20:19 Temperature 98.7 F 98.0 F Pulse Rate 100 88 95 Respiratory Rate 16 18 Blood Pressure 123/62 111/75 Pulse Oximetry 98 99 Oxygen Delivery 10/03/23 20:40 10/03/23 20:00 10/04/23 05:31 Temperature 98.0 F Pulse Rate 95 84 Respiratory Rate 18 Blood Pressure 114/72 Pulse Oximetry 96 Oxygen Delivery Room Air Intake/Output Intake/Output: Intake & Output 10/01/23 10/02/23 10/03/23 10/04/23 23:59 23:59 23:59 23:59 Intake Total 980 1580 600 Output Total 1300 1375 3400 450 Balance -320 205 -2800 -450 Meds/Results Medications: Active Medications Generic Name Dose Route Start Last Admin Trade Name Freq PRN Reason Stop Dose Admin Acetaminophen 650 mg 09/17/23 06:25 10/02/23 20:22 Acetaminophen 325 Mg Tablet PO 650 mg Q4H PRN Administration Mild Pain (1-3) or Fever Aspirin 81 mg 09/18/23 09:00 10/03/23 09:23 Aspirin 81 Mg Enteric Tablet PO 81 mg DAILY LEAH Administration Atorvastatin Calcium 40 mg 09/18/23 09:00 10/03/23 09:23 Atorvastatin 40 Mg Tablet PO 40 mg DAILY LEAH Administration Calcium Carbonate 400 mg 09/18/23 11:04 09/19/23 01:35 Calcium Carbonate (Tums) 500 Mg (200 Mg Elemental) PO 400 mg Q6H PRN Administration Indigestion Carbamazepine 200 mg 09/21/23 06:30 10/04/23 05:54 Carbamazepine 200 Mg Tablet PO 200 mg Q8HR LEAH Administration Carvedilol 3.125 mg 09/17/23 21:00 10/03/23 20:40 Carvedilol 3.125 Mg Tablet PO 3.125 mg Q12HR LEAH Administration Dextrose 12.5 gm 09/17/23 06:25 Dextrose 50% 25 Gm/50 Ml Syringe IV PUSH PRN PRN Hypoglycemia Protocol Doxycycline Hyclate 100 mg 10/03/23 12:00 10/03/23 20:39 Doxycycline Hyclate 100 Mg Tablet PO 10/31/23 23:59 100 mg Q12HR LEAH Administration Finasteride 5 mg 10/01/23 09:00 10/03/23 09:23 Finasteride 5 Mg Tablet PO 5 mg QAM LEAH Administration Glucagon 1 mg 09/17/23 06:25 Glucagon For Inj 1 Mg Vial IM PRN PRN Hypoglycemia Protocol Glucose 15 gm 09/17/23 06:25 Glucose Oral Gel 15 Gm Of Glucse In 37.5 Gm Tube PO PRN PRN Hypoglycemia Protocol Heparin Sodium (Porcine) 5
[2023-10-04 09:39] VITALS: PULSE 80
[2023-10-04] MEDS: carvediloL 3.125 MG TABLET PO ×2 (09:39→21:36)
[2023-10-04] MEDS: levoFLOXacin 750 MG TABLET PO (09:40)
[2023-10-04] MEDS: FINASTERIDE 5 MG TABLET PO (09:40)
[2023-10-04] MEDS: DOXYCYCLINE HYCLATE 100 MG TABLET PO ×2 (09:40→21:36)
[2023-10-04] MEDS: ATORVASTATIN 40 MG TABLET PO (09:40)
[2023-10-04 11:33] LABS: Glucose Point of Care 198 mg/dl (65-105)
--- NOTE | 2023-10-04 12:11 | PCNFU ---
Nutrition Follow-Up Complete: Inadequate energy intake related to diet order as evidenced by clear liquid status Goal:Diet advanced PO intake 75% of meals Pt was meeting goal, has since become more agitated and confused Pt current nutrition is Minced and Moist level 5, Ensure compact BID. Nutrition recommendation: continue with current plan of care Last recorded weight is 95.4 kg. Bowel Motility: No BM recorded at this time - on miralax and senakot Labs Reviewed: Hgb:11.1, HCT:33.8, NA:135, Glu:153 Meds Noted: novolog, zofran, heparin Skin: WNL Additional Notes: Pt was upgraded to a soft and bite sized level 6 diet, now downgraded to a minced and moist level 5 today / Diabetic consistent carb diet. Intake was good, has reduced some as of yesterday due to increased confusion and agitation. Encourage intake of meals and supplements. Monitor diet orders, intake, wt, labs. Follow up in 3 days
--- NOTE | 2023-10-04 12:53 | ECG_ITS ---
SEE SCANNED COPY FOR CONFIRMED REPORT MTDD
--- NOTE | 2023-10-04 13:00 | PM.IMPN ---
Progress Note: A&P Assessment and Plan (1) History of completed stroke: Code(s): Z86.73 - Personal history of transient ischemic attack (TIA), and cerebral infarction without residual deficits Status: Acute (2) Coronary artery disease: Code(s): I25.10 - Atherosclerotic heart disease of [place] coronary artery without angina pectoris Status: Chronic (3) Hypertension: Qualifiers: Hypertension type: primary hypertension Qualified Code(s): I10 - Essential (primary) hypertension Code(s): I10 - Essential (primary) hypertension Status: Acute (4) Delirium: Code(s): R41.0 - Disorientation, unspecified Status: Acute (5) Cerebrovascular accident: Onset Date: 06/2021 Code(s): I63.9 - Cerebral infarction, unspecified Status: Chronic (6) Type 2 diabetes mellitus: Qualifiers: Diabetes mellitus half-way insulin use: with intermodal customer service use Diabetes mellitus complication status: with circulatory complication Diabetes mellitus complication detail: with other circulatory complications Qualified Code(s): E11.59 - Type 2 diabetes mellitus with other circulatory complications; Z79.4 - parts counterman (current) use of insulin Code(s): E11.9 - Type 2 diabetes mellitus without complications Status: Acute (7) Seizure disorder: Code(s): G40.909 - Epilepsy, unspecified, not intractable, without status epilepticus Status: Acute (8) BPH (benign prostatic hyperplasia): Qualifiers: Lower urinary tract symptom presence: symptoms present Lower urinary tract symptom detail: unspecified Qualified Code(s): N40.1 - Benign prostatic hyperplasia with lower urinary tract symptoms Code(s): N40.0 - Benign prostatic hyperplasia without lower urinary tract symptoms Status: Acute (9) Encephalopathy: Code(s): G93.40 - Encephalopathy, unspecified Status: Acute (10) Leukocytosis: Code(s): D72.829 - Elevated white blood cell count, unspecified Status: Acute Plan This is a 63-year-old male with history of CAD status post stent and bypass, right toe amputation, history of CVA, insulin-dependent diabetes mellitus, hypertension, COPD, ILANA, peripheral artery disease, BPH, epilepsy.? Patient presented with right foot pain.? He is status post debridement of right foot wound on 09/18 with general anesthesia and now has a wound VAC. the patient became increasingly agitated and delirious post debridement on 09/18. He also underwent urethral dilation with Urology on 09/29 with MAC. #Delirium -reported history of prolonged postop delirium anesthesia many years ago. Underwent foot debridement and urethral dilation on 09/18 and 09/29 respectively. Of course, patient has osteomyelitis and that is a confounding factor. -neurology consulted. Exhaustive workup conducted, they continue to follow. -Seroquel 50 mg q.h.s. started on 09/29. On 09/30 [place] was discontinued and the patient appeared to become more lucid however that did not last long. He was not requiring restraints 10/02 became increasingly aggressive and due to potential harm to himself he has required physical restraints and Haldol. -on 10/03 the patient's delirium has not improved. Dr. Cesar has been contacted, recommendations given: Start sertraline 25 mg p.o. q.day increase Seroquel from 50 mg to 100 mg q.h.s. repeat wide workup for the evaluation of delirium: RPR, UA, blood cultures, hepatitis panel, HIV, ammonia level, B12 and folate, vitamin D, carbamazepine level, repeat MRI if possible. -the differential remains wide. Check EKG again ensure the QTC is still low enough to administer the above medications. He also continues require Haldol in spite of the risk to ensure the benefit of patient and staff safety. Avoid sedatives if possible, antipsychotics are more beneficial for postop delirium. Continue to promote good sleep-wake cycle. Continue to treat osteomyelitis. Please
[2023-10-04] MEDS: HALOPERIDOL LACTATE 5 MG/ML VIAL 4 MG IM (13:29)
[2023-10-04 13:57] LABS: Ammonia < 9 umol/L (9-30)
[2023-10-04 14:00] VITALS: BP 123/79; PULSE 96; RESP 16; TEMP 36.1; O2SAT 100
[2023-10-04 14:38] LABS: HIV 1/2 Ab P24 Ag Result Negative (Negative)
[2023-10-04 14:40] LABS: Hepatitis B Surface Antigen Negative (Negative)
[2023-10-04 14:46] LABS: HAV RESULT Negative (Negative); Hepatitis B Core IgM Result Negative (Negative)
[2023-10-04 14:48] LABS: Vitamin D 25 Hydroxy < 12.8 ng/mL
[2023-10-04 14:58] LABS: Hepatitis C Virus Antibody Negative (Negative)
[2023-10-04] MEDS: SERTRALINE HCL 25 MG TABLET PO (15:14)
[2023-10-04 15:22] LABS: Folic Acid 8.9 ng/mL (2.76->20)
[2023-10-04 15:40] LABS: Appearance Urine Clear (Clear); Bacteria Urine None Seen /hpf; Bilirubin Urine Negative (Negative); Blood Urine 2+ (Negative); Color Urine Yellow (Yellow); Glucose Urine UA 2+ mg/dL (Negative); Ketones Urine Trace mg/dL (Negative); Leukocyte Esterase Ur 1+ LEU/UL (Negative); Need Manual Microscopic Reviewed; Nitrate Urine Negative (Negative); Non Pathogenic Casts 0-2; Protein Urine Trace mg/dL (Negative); RBC Urine 51-100 /hpf (0-2); Squamous Epithelial Cell Urine None Seen /hpf (Few); WBC Urine 0-5 /hpf (0-3); pH Urine 5.5 (5.0-9.0)
[2023-10-04 15:41] LABS: Add Urine Microscopic? YES
[2023-10-04 16:06] LABS: Influenza A QL RT-PCR Negative (Negative); Influenza B QL RT-PCR Negative (Negative); RSV RNA, RT-PCR Negative (Negative); SARS-CoV-2 RNA PCR Negative (Negative)
--- NOTE | 2023-10-04 16:24 | PCPTNOTE ---
Patient demonstrates increased confusion today and unable to participate in PT. PT will continue to follow per plan of care.
[2023-10-04 16:38] LABS: Glucose Point of Care 218 mg/dl (65-105)
[2023-10-04 21:36] VITALS: PULSE 94
[2023-10-04] MEDS: QUEtiapine FUMARATE 100 MG TABLET PO (21:36)
[2023-10-04] MEDS: SENNA/DOCUSATE SODIUM TABLET 1 TAB PO (21:36)
[2023-10-04 21:45] LABS: Glucose Point of Care 211 mg/dl (65-105)
[2023-10-04 22:00] VITALS: BP 120/74; PULSE 96; RESP 20; TEMP 36.4; O2SAT 97
[2023-10-05] MEDS: HEPARIN SODIUM 5,000 UNITS/ML VIAL 5000 UNITS SUB-Q ×3 (05:43→21:53)
[2023-10-05] MEDS: carBAMazepine 200 MG TABLET PO ×2 (05:44→21:52)
[2023-10-05 06:00] VITALS: BP 96/60; PULSE 87; RESP 18; TEMP 36.1; O2SAT 98
[2023-10-05 06:36] LABS: Basophils Absolute Auto 0.1 K/mm3 (0.0-0.1); Basophils Percent Auto 0.6 % (0.2-1.2); Eosinophils Absolute Auto 0.3 K/mm3 (0-0.3); Hematocrit 35.7 % (42.0-52.0); Hemoglobin 11.5 g/dL (14.0-18.0); Immature Granulocyte Absolute 0.07 K/mm3 (0.00-0.031); Immature Granulocyte Percent A 0.6 % (0-0.5); Lymphocytes Percent Auto 19.4 % (18.3-44.2); Mean Corpuscular HGB Conc 32.2 g/dl (32-36); Mean Corpuscular Hemoglobin 30.8 pg (26-34); Mean Corpuscular Volume 95.7 fl (80-100); Monocytes Absolute Auto 2.3 K/mm3 (0.1-0.6); Monocytes Percent Auto 18.5 % (2.6-8.5); Neutrophils Absolute Auto 7.3 K/mm3 (1.3-6.7); Neutrophils Percent Auto 58.9 % (45.5-73.1); Platelet Count Result 338 k/mm3 (150-375); Red Blood Count 3.73 M/mm3 (4.6-6.20); Red Cell Distribution Width 17.1 % (11.5-14.5); White Blood Count 12.4 K/mm3 (4.5-10.0)
[2023-10-05 06:37] VITALS: BP 118/80
[2023-10-05 06:51] LABS: Alanine Aminotransferase 25 U/L (6-50); Alkaline Phosphatase 96 U/L (38-126); Anion Gap 9 mmol/L (4-12); Aspartate Amino Transferase 25 U/L (17-59); Bilirubin,Total 0.6 mg/dL (0.2-1.3); Blood Urea Nitrogen 14 mg/dL (9-20); Calcium 9.2 mg/dL (8.4-10.2); Carbon Dioxide 19 mmol/L (22-30); Chloride 107 mmol/L (98-107); Estimated CRCL calculation 74 ml/min; Estimated Glomerular Filt Rate > 60; Glucose 174 mg/dL (65-110); Potassium 3.9 mmol/L (3.4-5.0); Sodium 135 mmol/L (137-145)
[2023-10-05 07:12] LABS: Procalcitonin 0.1 ng/mL
[2023-10-05 07:35] LABS: Glucose Point of Care 172 mg/dl (65-105)
[2023-10-05 08:00] VITALS: PULSE 77; RESP 16; O2SAT 99
[2023-10-05] MEDS: levoFLOXacin 750 MG TABLET PO (08:32)
[2023-10-05] MEDS: TAMSULOSIN HCL 0.4 MG CAPSULE PO (08:32)
[2023-10-05] MEDS: DOXYCYCLINE HYCLATE 100 MG TABLET PO ×2 (08:32→21:53)
[2023-10-05] MEDS: ASPIRIN 81 MG ENTERIC TABLET PO (08:32)
[2023-10-05] MEDS: FINASTERIDE 5 MG TABLET PO (08:32)
[2023-10-05] MEDS: SERTRALINE HCL 25 MG TABLET PO (08:32)
[2023-10-05] MEDS: ATORVASTATIN 40 MG TABLET PO (08:32)
[2023-10-05] MEDS: THERAPEUTIC MULTIVITAMINS/MINERALS TAB (*BKC) 1 TABLET PO (08:32)
[2023-10-05] MEDS: carvediloL 3.125 MG TABLET PO ×2 (08:32→21:52)
--- NOTE | 2023-10-05 09:03 | PM.IMPN ---
Progress Note: A&P Assessment and Plan (1) History of completed stroke: Code(s): Z86.73 - Personal history of transient ischemic attack (TIA), and cerebral infarction without residual deficits Status: Acute (2) Coronary artery disease: Code(s): I25.10 - Atherosclerotic heart disease of [place] coronary artery without angina pectoris Status: Chronic (3) Hypertension: Qualifiers: Hypertension type: primary hypertension Qualified Code(s): I10 - Essential (primary) hypertension Code(s): I10 - Essential (primary) hypertension Status: Acute (4) Delirium: Code(s): R41.0 - Disorientation, unspecified Status: Acute (5) Cerebrovascular accident: Onset Date: 06/2021 Code(s): I63.9 - Cerebral infarction, unspecified Status: Chronic (6) Type 2 diabetes mellitus: Qualifiers: Diabetes mellitus complication detail: with other circulatory complications Diabetes mellitus complication status: with circulatory complication Diabetes mellitus intermediate insulin use: with intermediate use Qualified Code(s): E11.59 - Type 2 diabetes mellitus with other circulatory complications; Z79.4 - buttermaker (current) use of insulin Code(s): E11.9 - Type 2 diabetes mellitus without complications Status: Acute (7) Seizure disorder: Code(s): G40.909 - Epilepsy, unspecified, not intractable, without status epilepticus Status: Acute (8) BPH (benign prostatic hyperplasia): Qualifiers: Lower urinary tract symptom detail: unspecified Lower urinary tract symptom presence: symptoms present Qualified Code(s): N40.1 - Benign prostatic hyperplasia with lower urinary tract symptoms Code(s): N40.0 - Benign prostatic hyperplasia without lower urinary tract symptoms Status: Acute (9) Encephalopathy: Code(s): G93.40 - Encephalopathy, unspecified Status: Acute (10) Leukocytosis: Code(s): D72.829 - Elevated white blood cell count, unspecified Status: Acute Plan This is a 63-year-old male with history of CAD status post stent and bypass, right toe amputation, history of CVA, insulin-dependent diabetes mellitus, hypertension, COPD, ILANA, peripheral artery disease, BPH, epilepsy.? Patient presented with right foot pain.? He is status post debridement of right foot wound on 09/18 with general anesthesia and now has a wound VAC. the patient became increasingly agitated and delirious post debridement on 09/18. He also underwent urethral dilation with Urology on 09/29 with MAC. #Delirium -reported history of prolonged postop delirium anesthesia many years ago. Underwent foot debridement and urethral dilation on 09/18 and 09/29 respectively. Of course, patient has osteomyelitis and that is a confounding factor. -neurology consulted. Exhaustive workup conducted, they continue to follow. -Seroquel 50 mg q.h.s. started on 09/29. On 09/30 [place] was discontinued and the patient appeared to become more lucid however that did not last long. He was not requiring restraints 10/02 became increasingly aggressive and due to potential harm to himself he has required physical restraints and Haldol. -on 10/03 the patient's delirium has not improved. Dr. Cesar has been contacted, recommendations given: Start sertraline 25 mg p.o. q.day increase Seroquel from 50 mg to 100 mg q.h.s. repeat wide workup for the evaluation of delirium: RPR, UA, blood cultures, hepatitis panel, HIV, ammonia level, B12 and folate, vitamin D, carbamazepine level, repeat MRI if possible. -the differential remains wide. Check EKG again ensure the QTC is still low enough to administer the above medications. He also continues require Haldol in spite of the risk to ensure the benefit of patient and staff safety. Avoid sedatives if possible, antipsychotics are more beneficial for postop delirium. Continue to promote good sleep-wake cycle. Continue to treat osteomyelitis. Please
[2023-10-05 11:51] LABS: Glucose Point of Care 201 mg/dl (65-105)
--- NOTE | 2023-10-05 12:35 | PM.PNORT ---
Progress Note: A&P Assessment and Plan (1) Diabetic ulcer of right heel: Qualifiers: Diabetes mellitus type: type 2 Non-pressure ulcer stage: with necrosis of muscle Qualified Code(s): E11.621 - Type 2 diabetes mellitus with foot ulcer; L97.413 - Non-pressure chronic ulcer of right heel and midfoot with necrosis of muscle Code(s): E11.621 - Type 2 diabetes mellitus with foot ulcer; L97.419 - Non-pressure chronic ulcer of right heel and midfoot with unspecified severity Status: Acute Assessment and Plan: 2 weeks s/p right heel debridement. Wound VAC dressing changed today. Indicated for debridement with application of graft to assist with wound healing. And decrease risk of osteomyelitis. Labs improved. Good protein and albumin consistent with proper nutrition. Discussed nonoperative and operative treatment options with the patient. Risks and benefits of each as well as alternatives were reviewed. All of the patient's questions were answered. The risks of surgery reviewed including but not limited to: Neurovascular damage, wound complication, infection, blood clot, pulmonary embolus, stroke, myocardial infarction, and anesthetic risks up to and including . Continued pain and possible dysfunction were explained. Specific risks of the procedure including later recurrence of deformity. No guarantees were offered. If hardware used, discussed risk of failure/ breakage and possible need for removal. If complications occur, the patient understands the need for further treatment, possible further surgery. Patient verbalizes understanding and wishes to proceed. PLAN: Right foot debridement with application of graft. (2) Encephalopathy: Code(s): G93.40 - Encephalopathy, unspecified Status: Acute Assessment and Plan: Slowly showing signs of improvement including awake and alert, answering questions. Subjective Subjective Date/Time Seen: 10/05/23 12:35 Post Op day: 16 (16) Principal diagnosis: Right diabetic heel ulcer Interval history: patient more awake this morning. Answering questions appropriately. Minimal complaints of right heel pain. Feeding self but oral intake decreased. Soft restraints in place. Review of Systems Constitutional: Constitutional: Denies fever(s) Eyes: Eyes: Denies blurry vision ENT: Reports Normal hearing present Cardiovascular: Cardiovascular: Denies chest pain and Denies dyspnea Respiratory: Respiratory: Denies dyspnea and Denies wheezing Gastrointestinal: Gastrointestinal: Denies abdominal pain Genitourinary: Genitourinary: Denies urinary urgency Musculoskeletal: Musculoskeletal: Reports as per HPI and Denies numbness Integumentary/Breasts: Skin/Breast: Denies changing lesions and Denies sores Neurologic: Reports Normal hearing present, Denies behavioral changes, Denies confusion, Denies numbness and Denies convulsions Psychiatric: Psychiatric: Denies behavioral changes, Denies confusion and Denies hallucinations Endocrine: Endocrine: Denies heat intolerance Hematologic/Lymphatic: Hematologic/Lymphatic: Denies easy bleeding Allergic/Immunologic: Allergic/Immunologic: Denies wheezing Exam Const: General: lethargic and average body habitus; No combative or diaphoretic Resp: Effort & Inspection: normal respiratory effort Skin: Wounds: wounds noted (RIGHT Medial Heel Wound ) Extrem: Other: Wound VAC dressing intact. Right heel ulcer clean, no signs of purulence or drainage. Viable surrounding tissue. Foot/ leg without erythema, mild swelling. Objective Data Vital Signs Vital Signs: Vital Signs - 24 hr 10/04/23 14:00 10/04/23 21:36 10/04/23 22:00 Temperature 97.0 F L 97.6 F Pulse Rate 96 94 96 Respiratory Rate 16 20 Blood Pressure 123/79 120/74 Pulse Oximetry 100 97 10/05/23 06:00 10/05/23 06:37 Temperature 97.0 F L Pulse Rate 87 Respiratory Rate 18 Blood Pressure 96/60 L 118/
[2023-10-05 13:52] LABS: Rapid Plasma Reagin Non-Reactive (NonReactive)
[2023-10-05 14:00] VITALS: BP 94/67; PULSE 77; RESP 16; TEMP 36.7; O2SAT 99
[2023-10-05 16:55] LABS: Glucose Point of Care 180 mg/dl (65-105)
[2023-10-05 20:00] LABS: Glucose Point of Care 182 mg/dl (65-105)
[2023-10-05 21:39] VITALS: BP 106/79; PULSE 87; RESP 18; TEMP 36.4; O2SAT 99
[2023-10-05 21:52] VITALS: PULSE 87
[2023-10-05] MEDS: QUEtiapine FUMARATE 100 MG TABLET PO (21:52)
[2023-10-05] MEDS: SENNA/DOCUSATE SODIUM TABLET 1 TAB PO (21:53)
[2023-10-06] VITALS (9 sets, daily range): BP systolic 92–124; BP diastolic 70–80; PULSE 64–85; RESP 13–18; TEMP 35.9–36.3; O2SAT 99–100
[2023-10-06] MEDS: carBAMazepine 200 MG TABLET PO ×3 (05:47→21:00)
[2023-10-06 08:04] LABS: Glucose Point of Care 153 mg/dl (65-105)
--- NOTE | 2023-10-06 08:30 | PCOTNOTE ---
Pt. expected to undergo surgery today. Pt. to be reevaluatied by occupaitonal therapy when medically and psychologically appropriate. Following
--- NOTE | 2023-10-06 09:29 | PC.NURSE ---
pt NPO for scheduled procedure, sleeping soundly, will continue to monitor
--- NOTE | 2023-10-06 09:45 | P.PNIM_ITS ---
Progress Note: A&P Assessment and Plan (1) History of completed stroke: Code(s): Z86.73 - Personal history of transient ischemic attack (TIA), and cerebral infarction without residual deficits Status: Acute (2) Coronary artery disease: Code(s): I25.10 - Atherosclerotic heart disease of [place] coronary artery without angina pectoris Status: Chronic (3) Hypertension: Qualifiers: Hypertension type: primary hypertension Qualified Code(s): I10 - Essential (primary) hypertension Code(s): I10 - Essential (primary) hypertension Status: Acute (4) Delirium: Code(s): R41.0 - Disorientation, unspecified Status: Acute (5) Cerebrovascular accident: Onset Date: 06/2021 Code(s): I63.9 - Cerebral infarction, unspecified Status: Chronic (6) Type 2 diabetes mellitus: Qualifiers: Diabetes mellitus complication detail: with other circulatory complications Diabetes mellitus complication status: with circulatory complication Diabetes mellitus long-term insulin use: with long-term use Qualified Code(s): E11.59 - Type 2 diabetes mellitus with other circulatory complications; Z79.4 - intermediate project manager (current) use of insulin Code(s): E11.9 - Type 2 diabetes mellitus without complications Status: Acute (7) Seizure disorder: Code(s): G40.909 - Epilepsy, unspecified, not intractable, without status epilepticus Status: Acute (8) BPH (benign prostatic hyperplasia): Qualifiers: Lower urinary tract symptom detail: unspecified Lower urinary tract symptom presence: symptoms present Qualified Code(s): N40.1 - Benign prostatic hyperplasia with lower urinary tract symptoms Code(s): N40.0 - Benign prostatic hyperplasia without lower urinary tract symptoms Status: Acute (9) Encephalopathy: Code(s): G93.40 - Encephalopathy, unspecified Status: Acute (10) Leukocytosis: Code(s): D72.829 - Elevated white blood cell count, unspecified Status: Acute Plan This is a 63-year-old male with history of CAD status post stent and bypass, right toe amputation, history of CVA, insulin-dependent diabetes mellitus, hypertension, COPD, ILANA, peripheral artery disease, BPH, epilepsy.? Patient presented with right foot pain.? He is status post debridement of right foot wound on 09/18 with general anesthesia and now has a wound VAC. the patient became increasingly agitated and delirious post debridement on 09/18. He also underwent urethral dilation with Urology on 09/29 with MAC. #Delirium -reported history of prolonged postop delirium anesthesia many years ago. Underwent foot debridement and urethral dilation on 09/18 and 09/29 respectively. Of course, patient has osteomyelitis and that is a confounding factor. -neurology consulted. Exhaustive workup conducted, they continue to follow. -Seroquel 50 mg q.h.s. started on 09/29. On 09/30 [place] was discontinued and the patient appeared to become more lucid however that did not last long. He was not requiring restraints 10/02 became increasingly aggressive and due to potential harm to himself he has required physical restraints and Haldol. -on 10/03 the patient's delirium has not improved. Dr. Cesar has been contacted, recommendations given: Start sertraline 25 mg p.o. q.day increase Seroquel from 50 mg to 100 mg q.h.s. repeat wide workup for the evaluation of delirium: RPR, UA, blood cultures, hepatitis panel, HIV, ammonia level, B12 and folate, vitamin D, carbamazepine level, repeat MRI if possible. -the differential remains wide. Check EKG again ensure the QTC is still low enou
--- NOTE | 2023-10-06 10:50 | WPDHPUPDATE1 ---
History and Physical Update Update Date/Time: 10/06/23 10:50 History and Physical has been reviewed, including an updated exam of the patient. There are NO changes in the patient's condition. Risks, benefits, and alternatives have been discussed and questions answered. Patient agrees to proceed with procedure.
--- NOTE | 2023-10-06 10:54 | WPDANESEPPF ---
Anes - Initial Pre Proc Eval Procedure: Operation Date: 09/19/23 10:00 Proposed Procedures p Debridement Right Foot Ulcer - Rashid Flower MD Operation Date: 09/22/23 07:30 Proposed Procedures p Right Foot Debridement, Graft Application - Rashid Flower MD Operation Date: 09/30/23 13:00 Proposed Procedures p Cystoscopy, Urethral Dilatation - Kisha Taylor MD Operation Date: 10/06/23 11:00 Proposed Procedures p Debridement of Right Foot with Application Graft - Rashid Flower MD Date/Time: 10/06/23 10:54 Surgeon: Marivel Roberson DO Pre Op Diagnosis: Diabetic Foot Wound/Hypokalemia Patient Data Age: 63 Gender: M Height: 1.83 m Weight: 95.4 kg Last Vital Signs Temp 97.3 F L 10/06/23 06:00 Pulse 79 10/06/23 06:00 Resp 18 10/06/23 06:00 BP 112/77 10/06/23 06:00 Pulse Ox 100 10/06/23 06:00 O2 Del Method Room Air 10/05/23 08:00 O2 Flow Rate 10 09/30/23 13:49 Allergies Allergy/AdvReac Type Severity Reaction Status Date / Time metoclopramide AdvReac Mild Vomiting Verified 09/16/23 23:39 Home Medications Medication Instructions Recorded Confirmed Type aspirin 81 mg tablet,delayed 81 mg PO DAILY 09/05/21 09/17/23 History release (Adult Low Dose Aspirin) atorvastatin 40 mg tablet (Lipitor) 40 mg PO DAILY 09/05/21 09/17/23 History carvedilol 3.125 mg tablet (Coreg) 3.125 mg PO Q12H 09/05/21 09/17/23 History empagliflozin 10 mg tablet 10 mg PO DAILY 09/05/21 09/17/23 History (Jardiance) fenofibrate 160 mg tablet 160 mg PO DAILY 09/05/21 09/17/23 History lisinopril 5 mg tablet (Zestril) 5 mg PO DAILY 09/05/21 09/17/23 History carbamazepine 200 mg tablet 200 mg PO Q8HR #90 tabs 09/07/21 09/17/23 Rx insulin glargine 100 unit/mL (3 45 unit subcut HS 03/11/22 09/17/23 History mL) subcutaneous pen (Lantus Solostar U-100 Insulin) finasteride 5 mg tablet (Proscar) 5 mg PO QAM 30 days #30 tabs 01/29/23 09/17/23 Rx tamsulosin 0.4 mg capsule 0.4 mg PO QAM 30 days #30 caps 01/29/23 09/17/23 Rx Laboratory Tests 10/04/23 10/05/23 10/05/23 13:27 11:31 16:53 POC Capillary Glucose 201 H mg/dl 180 H mg/dl (65-105) (65-105) RPR Non-reactive (NonReactive) 10/05/23 10/06/23 19:57 07:58 POC Capillary Glucose 182 H mg/dl 153 H mg/dl (65-105) (65-105) RPR Patient hx anesthesia problems: none Family hx anesthesia problems: none Results Review: All pre-operative results and documents have been reviewed as part of the pre-operative evaluation. [facility] Past Medical History Medical History Cerebrovascular accident (06/2021) It sounds as though he had an ischemic stroke (symptoms include vertigo and visual changes) with hemorrhagic conversion. Chronic anemia Chronic obstructive pulmonary disease Coronary artery disease Status post bifurcation stents to the LAD and diagonal in 2006, stent to the LAD for in-stent restenoses in 2009, and CABG in April 2021 at [facility]. Diabetic foot ulcer Diabetic ulcer of right heel Encounter for postoperative care Gastroesophageal reflux disease Hypertension Kidney stones ILANA on CPAP Osteomyelitis of toe of right foot Peripheral arterial occlusive disease Personal history of noncompliance with medical treatment and regimen Seizure disorder Type 2 diabetes mellitus Surgical History Surgical History History of amputation of left great toe History of amputation of right great toe 03/11/23 History of coronary artery bypass graft (04/2021) Done at [facility]. History of inguinal hernia repair times 2 History of myringoplasty History of percutaneous coronary intervention Bifurcation stents to LAD and diagonal in 2006. Stent to the LAD in 2009. (three stents) Family History Family History Mother F
[2023-10-06] MEDS: LACTATED RINGERS 1,000 ML 30 ML IV CONT (11:40)
--- NOTE | 2023-10-06 11:52 | P.OP_ITS ---
Procedure Note - Detailed Date of Procedure 10/06/23 Pre-op Diagnosis Diabetic Foot Wound/Hypokalemia Post-op Diagnosis Same Procedure Performed Right foot excisional debridement down to bone, wound 5 x 5.5 cm. Application graft Surgeon Rashid Flower MD Ecdis N Navigation Operator 1st sugar laboratory assistant Anesthesia MAC Indications 63-year-old with diabetes, peripheral neuropathy and diabetic heel ulcer. Has been on the wound VAC. Wound VAC assisted improvement in overall wound appearance. Now presents for further debridement application graft. Findings Wound 5 x 5.5 cm with 1.5 cm depth. Good granulation tissue. 10% slough noted. surrounding tissue with good vascularity. Description of Procedure Patient identified in the preoperative holding.? Informed consent given.? Operative extremity marked.? Patient received intravenous antibiotics.? Patient brought to the operating room where underwent general anesthetic by anesthesia team.? Positioned supine on operating room table.? Time-out performed confirming the patient, site of the surgery and the plan.? Right foot prepped draped usual sterile surgical fashion using a Betadine prep solution.? Plantar ulcer evaluated. 5 x 5.5 cm ulcer with central bone exposed from the medial calcaneal tuberosity no active drainage.? 15 blade knife used to sharply excise skin, subcutaneous tissue, muscle from the plantar ulcer and the medial heel. bone d ebrided with rongeur. Devitalized bone tissue excised and passed off.? Finished wound 5 x 5.5 cm extending to the plantar calcaneus and medial calcaneus With 1.5 cm depth. Thorough irrigation with vancomycin saline.? graph then applied. micronized particulate micro matrix prepared on the back table with saline. This was applied to the bed. This was covered with the amnio XL layer. Mashed dermal regenerative template then positioned and secured with patricia. Sterile dressing applied. Patient taken recovery room in stable condition. Implants Integra micro matrix flex 1 g, 5 cc lot [id number], expiration 03/19/2026. Integra amnio XL +5 x 8 cm, lot [id number], expiration 08/01/2028. Integra meshed dermal regenerative template lot [id number], expiration 07/20/2025. Estimated Blood Loss 2 Tourniquet Time Total Tourniquet Time: 0 Urine Output 475 Drains No Packing No Pathology None sent Complications None Condition Stable Disposition PACU [facility] Billing Surgery - Charge Forward: Surgery Billing ([id number], [id number])
[2023-10-06] MEDS: fentaNYL CITRATE INJ (*CRX) 100 MCG/2 ML VIAL 25 MCG IV PUSH (11:56)
[2023-10-06 12:11] LABS: Glucose Point of Care 184 mg/dl (65-105)
--- NOTE | 2023-10-06 12:45 | PC.NURSE ---
pt returned from surgery via bed
[2023-10-06] MEDS: DOXYCYCLINE HYCLATE 100 MG TABLET PO ×2 (14:05→20:01)
[2023-10-06] MEDS: FINASTERIDE 5 MG TABLET PO (14:05)
[2023-10-06] MEDS: SERTRALINE HCL 25 MG TABLET PO (14:05)
[2023-10-06] MEDS: TAMSULOSIN HCL 0.4 MG CAPSULE PO (14:05)
[2023-10-06] MEDS: ATORVASTATIN 40 MG TABLET PO (14:05)
[2023-10-06] MEDS: carvediloL 3.125 MG TABLET PO ×2 (14:05→20:08)
--- NOTE | 2023-10-06 14:05 | PCPTNOTE ---
The patient treatment was not able to be completed due to out of room for surgey this A.M. and then eating lunch this afternoon. Will plan to continue treatment per plan of care. Patient has new order for CHARLEY BAIG
[2023-10-06] MEDS: HEPARIN SODIUM 5,000 UNITS/ML VIAL 5000 UNITS SUB-Q ×2 (14:06→21:00)
[2023-10-06] MEDS: THERAPEUTIC MULTIVITAMINS/MINERALS TAB (*BKC) 1 TABLET PO (14:06)
[2023-10-06] MEDS: ASPIRIN 81 MG ENTERIC TABLET PO (14:09)
[2023-10-06 17:02] LABS: Glucose Point of Care 187 mg/dl (65-105)
[2023-10-06] MEDS: ACETAMINOPHEN 325 MG TABLET 650 MG PO (20:00)
[2023-10-06] MEDS: QUEtiapine FUMARATE 100 MG TABLET PO (20:01)
[2023-10-06] MEDS: SENNA/DOCUSATE SODIUM TABLET 1 TAB PO (20:01)
[2023-10-06 20:31] LABS: Glucose Point of Care 176 mg/dl (65-105)
[2023-10-06 21:17] LABS: Hematocrit 36.9 % (42.0-52.0); Mean Corpuscular HGB Conc 32.5 g/dl (32-36); Mean Corpuscular Hemoglobin 30.6 pg (26-34); Mean Corpuscular Volume 94.1 fl (80-100); Mean Platelet Volume 11.8 fl (7.4-10.4); Platelet Count Result 340 k/mm3 (150-375); Red Blood Count 3.92 M/mm3 (4.6-6.20); Red Cell Distribution Width 17.4 % (11.5-14.5); White Blood Count 9.3 K/mm3 (4.5-10.0)
[2023-10-06 21:28] LABS: Alanine Aminotransferase 23 U/L (6-50); Albumin Level 4.1 g/dL (3.5-5.1); Alkaline Phosphatase 97 U/L (38-126); Anion Gap 10 mmol/L (4-12); Aspartate Amino Transferase 23 U/L (17-59); Bilirubin,Total 0.4 mg/dL (0.2-1.3); Blood Urea Nitrogen 21 mg/dL (9-20); Calcium 9.2 mg/dL (8.4-10.2); Carbon Dioxide 21 mmol/L (22-30); Chloride 104 mmol/L (98-107); Estimated CRCL calculation 63 ml/min; Estimated Glomerular Filt Rate > 60; Glucose 156 mg/dL (65-110); Potassium 4.4 mmol/L (3.4-5.0); Sodium 135 mmol/L (137-145)
[2023-10-07] VITALS (7 sets, daily range): BP systolic 105–125; BP diastolic 55–68; PULSE 80–99; RESP 18–20; TEMP 36.2–36.9; O2SAT 97–99
[2023-10-07] MEDS: HEPARIN SODIUM 5,000 UNITS/ML VIAL 5000 UNITS SUB-Q ×3 (06:32→22:58)
[2023-10-07] MEDS: carBAMazepine 200 MG TABLET PO ×3 (06:32→20:20)
--- NOTE | 2023-10-07 08:15 | WPDANESPN ---
Anes - Prog Note Post-Op Date/Time: 10/07/23 08:15 Cardiovascular status: normal Respiratory status: normal Airway patency: baseline Mental status: other (Patient not alert and oriented, sitter at bedside) Post-Op hydration status: normal Vital Signs: Last Vital Signs Temp 36.2 C L 10/07/23 06:10 Pulse 99 10/07/23 06:10 Resp 20 10/07/23 06:10 BP 125/58 L 10/07/23 06:10 Pulse Ox 97 10/07/23 06:10 O2 Del Method Room Air 10/06/23 12:38 O2 Flow Rate 8 10/06/23 11:40 Pain Score (VAS): 0/10, resting quietly in bed I/O: Intake & Output 10/06/23 10/07/23 10/07/23 23:59 07:59 15:59 Intake Total 118 210 Output Total 150 400 Balance -32 -190 Laboratory Tests 10/06/23 20:59 10/06/23 20:59 10/06/23 10/06/23 10/06/23 12:07 16:54 20:16 WBC RBC Hgb Hct MCV MCH MCHC RDW Plt Count MPV Sodium Potassium Chloride Carbon Dioxide Anion Gap BUN Creatinine Estim Creat Clear Calc Estimated GFR Glucose POC Capillary Glucose 184 H 187 H 176 H Calcium Total Bilirubin AST ALT Alkaline Phosphatase Total Protein Albumin 10/06/23 20:59 WBC 9.3 RBC 3.92 L Hgb 12.0 L Hct 36.9 L MCV 94.1 MCH 30.6 MCHC 32.5 RDW 17.4 H Plt Count 340 MPV 11.8 H Sodium 135 L Potassium 4.4 Chloride 104 Carbon Dioxide 21 L Anion Gap 10 BUN 21 H Creatinine 1.20 Estim Creat Clear Calc 63 Estimated GFR > 60 Glucose 156 H POC Capillary Glucose Calcium 9.2 Total Bilirubin 0.4 AST 23 ALT 23 Alkaline Phosphatase 97 Total Protein 7.0 Albumin 4.1 Post-procedural complaints: none Patient Feedback: Patient satisfied with anesthetic care.
[2023-10-07] MEDS: THERAPEUTIC MULTIVITAMINS/MINERALS TAB (*BKC) 1 TABLET PO (08:21)
[2023-10-07] MEDS: ASPIRIN 81 MG ENTERIC TABLET PO (08:21)
[2023-10-07] MEDS: ATORVASTATIN 40 MG TABLET PO (08:21)
[2023-10-07] MEDS: FINASTERIDE 5 MG TABLET PO (08:21)
[2023-10-07] MEDS: levoFLOXacin 750 MG TABLET PO (08:21)
[2023-10-07] MEDS: DOXYCYCLINE HYCLATE 100 MG TABLET PO ×2 (08:21→20:20)
[2023-10-07] MEDS: TAMSULOSIN HCL 0.4 MG CAPSULE PO (08:21)
[2023-10-07] MEDS: polyethylene glycoL 3350 17 GM POWD.PACK PO (08:21)
[2023-10-07] MEDS: carvediloL 3.125 MG TABLET PO ×2 (08:21→20:20)
[2023-10-07] MEDS: SERTRALINE HCL 25 MG TABLET PO (08:22)
[2023-10-07 08:41] LABS: Glucose Point of Care 165 mg/dl (65-105)
--- NOTE | 2023-10-07 09:02 | PM.IMPN ---
Progress Note: A&P Assessment and Plan (1) History of completed stroke: Code(s): Z86.73 - Personal history of transient ischemic attack (TIA), and cerebral infarction without residual deficits Status: Acute (2) Coronary artery disease: Code(s): I25.10 - Atherosclerotic heart disease of [place] coronary artery without angina pectoris Status: Chronic (3) Hypertension: Qualifiers: Hypertension type: primary hypertension Qualified Code(s): I10 - Essential (primary) hypertension Code(s): I10 - Essential (primary) hypertension Status: Acute (4) Delirium: Code(s): R41.0 - Disorientation, unspecified Status: Acute (5) Cerebrovascular accident: Onset Date: 06/2021 Code(s): I63.9 - Cerebral infarction, unspecified Status: Chronic (6) Type 2 diabetes mellitus: Qualifiers: Diabetes mellitus complication detail: with other circulatory complications Diabetes mellitus complication status: with circulatory complication Diabetes mellitus alf insulin use: with alf use Qualified Code(s): E11.59 - Type 2 diabetes mellitus with other circulatory complications; Z79.4 - terminal make up operator (current) use of insulin Code(s): E11.9 - Type 2 diabetes mellitus without complications Status: Acute (7) Seizure disorder: Code(s): G40.909 - Epilepsy, unspecified, not intractable, without status epilepticus Status: Acute (8) BPH (benign prostatic hyperplasia): Qualifiers: Lower urinary tract symptom detail: unspecified Lower urinary tract symptom presence: symptoms present Qualified Code(s): N40.1 - Benign prostatic hyperplasia with lower urinary tract symptoms Code(s): N40.0 - Benign prostatic hyperplasia without lower urinary tract symptoms Status: Acute (9) Encephalopathy: Code(s): G93.40 - Encephalopathy, unspecified Status: Acute (10) Leukocytosis: Code(s): D72.829 - Elevated white blood cell count, unspecified Status: Acute Plan This is a 63-year-old male with history of CAD status post stent and bypass, right toe amputation, history of CVA, insulin-dependent diabetes mellitus, hypertension, COPD, ILANA, peripheral artery disease, BPH, epilepsy.? Patient presented with right foot pain.? He is status post debridement of right foot wound on 09/18 with general anesthesia and now has a wound VAC. the patient became increasingly agitated and delirious post debridement on 09/18. He also underwent urethral dilation with Urology on 09/29 with MAC. #Delirium -reported history of prolonged postop delirium anesthesia many years ago. Underwent foot debridement and urethral dilation on 09/18 and 09/29 respectively. Of course, patient has osteomyelitis and that is a confounding factor. -neurology consulted. Exhaustive workup conducted, they continue to follow. -Seroquel 50 mg q.h.s. started on 09/29. On 09/30 [place] was discontinued and the patient appeared to become more lucid however that did not last long. He was not requiring restraints 10/02 became increasingly aggressive and due to potential harm to himself he has required physical restraints and Haldol. -on 10/03 the patient's delirium has not improved. Dr. Cesar has been contacted, recommendations given: Start sertraline 25 mg p.o. q.day increase Seroquel from 50 mg to 100 mg q.h.s. repeat wide workup for the evaluation of delirium: RPR, UA, blood cultures, hepatitis panel, HIV, ammonia level, B12 and folate, vitamin D, carbamazepine level, repeat MRI if possible. -the differential remains wide. Check EKG again ensure the QTC is still low enough to administer the above medications. He also continues require Haldol in spite of the risk to ensure the benefit of patient and staff safety. Avoid sedatives if possible, antipsychotics are more beneficial for postop delirium. Continue to promote good sleep-wake cycle. Continue to treat osteomyelitis. Please
--- NOTE | 2023-10-07 10:03 | PM.PNORT ---
Progress Note: A&P Assessment and Plan (1) Diabetic foot ulcer: Qualifiers: Diabetic foot ulcer location: heel Diabetes mellitus type: type 2 Laterality: right Non-pressure ulcer stage: with necrosis of muscle Qualified Code(s): E11.621 - Type 2 diabetes mellitus with foot ulcer; L97.413 - Non-pressure chronic ulcer of right heel and midfoot with necrosis of muscle Code(s): E11.621 - Type 2 diabetes mellitus with foot ulcer; L97.509 - Non-pressure chronic ulcer of other part of unspecified foot with unspecified severity Status: Acute Assessment and Plan: Postoperative day 1 right diabetic heel ulcer debridement with application graft. Operative findings and treatment reviewed with the patient. Plan to reapply wound VAC to right foot. Nonweightbearing activity restrictions. Continue medical care. Patient mental status appears to be improving. Oral antibiotics. Subjective Subjective Date/Time Seen: 10/07/23 10:03 Post Op day: 1 Principal diagnosis: right diabetic foot ulcer Interval history: patient more awake and alert today. Oriented to self and place, time. No complaints of pain. Reviewed treatment yesterday with patient. Exam Const: General: lethargic and average body habitus; No combative or diaphoretic Orientation/consciousness: oriented to person, oriented to place and oriented to time Resp: Effort & Inspection: normal respiratory effort Skin: Wounds: wounds noted (RIGHT Medial Heel Wound ) Extrem: Other: Right heel ulcer Dressing in place. Foot/ leg without erythema, mild swelling. Objective Data Vital Signs Vital Signs: Vital Signs - 24 hr 10/06/23 11:40 10/06/23 11:55 10/06/23 12:10 Temperature 96.7 F L Pulse Rate 84 76 75 Respiratory Rate 15 15 13 Blood Pressure 100/80 99/70 L 92/73 L Pulse Oximetry 100 99 99 Oxygen Delivery Simple Face Mask Room Air Room Air Oxygen Flow Rate 8 10/06/23 12:25 10/06/23 12:38 10/06/23 14:05 Temperature Pulse Rate 77 83 83 Respiratory Rate 14 14 Blood Pressure 98/72 L 112/74 Pulse Oximetry 99 99 Oxygen Delivery Room Air Room Air Oxygen Flow Rate 10/06/23 20:08 10/06/23 21:05 10/07/23 06:10 Temperature 97.4 F L 97.2 F L Pulse Rate 64 85 99 Respiratory Rate 18 20 Blood Pressure 124/74 125/58 L Pulse Oximetry 100 97 Oxygen Delivery Oxygen Flow Rate 10/07/23 08:00 Temperature Pulse Rate Respiratory Rate Blood Pressure Pulse Oximetry Oxygen Delivery Room Air Oxygen Flow Rate Intake/Output Intake/Output: Intake & Output 10/04/23 10/05/23 10/06/23 10/07/23 23:59 23:59 23:59 23:59 Intake Total 340 0 288 210 Output Total 203 655 1680 400 Balance -640 -675 -737 -190 Meds/Results Medications: Active Medications Generic Name Dose Route Start Last Admin Trade Name Freq PRN Reason Stop Dose Admin Acetaminophen 650 mg 09/17/23 06:25 10/06/23 20:00 Acetaminophen 325 Mg Tablet PO 650 mg Q4H PRN Administration Mild Pain (1-3) or Fever Aspirin 81 mg 09/18/23 09:00 10/07/23 08:21 Aspirin 81 Mg Enteric Tablet PO 81 mg DAILY LEAH Administration Atorvastatin Calcium 40 mg 09/18/23 09:00 10/07/23 08:21 Atorvastatin 40 Mg Tablet PO 40 mg DAILY LEAH Administration Calcium Carbonate 400 mg 09/18/23 11:04 09/19/23 01:35 Calcium Carbonate (Tums) 500 Mg (200 Mg Elemental) PO 400 mg Q6H PRN Administration Indigestion Carbamazepine 200 mg 09/21/23 06:30 10/07/23 06:32 Carbamazepine 200 Mg Tablet PO 200 mg Q8HR LEAH Administration Carvedilol 3.125 mg 09/17/23 21:00 10/07/23 08:21 Carvedilol 3.125 Mg Tablet PO 3.125 mg Q12HR LEAH Administration Dextrose 12.5 gm 09/17/23 06:25 Dextrose 50% 25 Gm/50 Ml Syringe IV PUSH PRN PRN Hypoglycemia Protocol Doxycycline Hyclate 100 mg 10/03/23 12:00 10/07/23 08:21 Doxycycline Hyclate 100 Mg Tablet PO 10/31/23 23:59 100 mg Q1
[2023-10-07 12:14] LABS: Glucose Point of Care 225 mg/dl (65-105)
[2023-10-07] MEDS: INSULIN ASPART (*BKC) 100 UNITS/ML SUB-Q (12:46)
[2023-10-07 14:08] LABS: Vitamin D 1,25 (OH)2 Total 38 pg/mL (18-72); Vitamin D2 1,25 (OH)2 <8 pg/mL; Vitamin D3 1,25 (OH)2 38 pg/mL
[2023-10-07 16:50] LABS: Glucose Point of Care 165 mg/dl (65-105)
[2023-10-07] MEDS: ACETAMINOPHEN 325 MG TABLET 650 MG PO (18:19)
--- NOTE | 2023-10-07 18:54 | ECG_ITS ---
SEE SCANNED COPY FOR CONFIRMED REPORT MTDD
[2023-10-07 19:32] LABS: Troponin I < 0.012 ng/mL (0.000-0.034)
--- NOTE | 2023-10-07 19:43 | ECG_ITS ---
SEE SCANNED COPY FOR CONFIRMED REPORT MTDD
[2023-10-07] MEDS: QUEtiapine FUMARATE 100 MG TABLET PO (20:20)
[2023-10-07] MEDS: SENNA/DOCUSATE SODIUM TABLET 1 TAB PO (20:20)
[2023-10-07 20:47] LABS: Glucose Point of Care 203 mg/dl (65-105)
[2023-10-07 22:39] LABS: Troponin I < 0.012 ng/mL (0.000-0.034)
[2023-10-08] VITALS (9 sets, daily range): BP systolic 101–123; BP diastolic 60–74; PULSE 72–87; RESP 12–18; TEMP 36.4–36.9; O2SAT 99–100
[2023-10-08] MEDS: traZODone HCL 50 MG TABLET PO (00:10)
[2023-10-08 01:40] LABS: Troponin I < 0.012 ng/mL (0.000-0.034)
[2023-10-08 07:28] LABS: Glucose Point of Care 162 mg/dl (65-105)
[2023-10-08] MEDS: ATORVASTATIN 40 MG TABLET PO (08:58)
[2023-10-08] MEDS: DOXYCYCLINE HYCLATE 100 MG TABLET PO ×2 (08:58→19:58)
[2023-10-08] MEDS: carBAMazepine 200 MG TABLET PO ×3 (08:58→19:58)
[2023-10-08] MEDS: FINASTERIDE 5 MG TABLET PO (08:58)
[2023-10-08] MEDS: SERTRALINE HCL 25 MG TABLET PO (08:58)
[2023-10-08] MEDS: levoFLOXacin 750 MG TABLET PO (08:58)
[2023-10-08] MEDS: HEPARIN SODIUM 5,000 UNITS/ML VIAL 5000 UNITS SUB-Q ×3 (08:58→19:58)
[2023-10-08] MEDS: ASPIRIN 81 MG ENTERIC TABLET PO (08:58)
[2023-10-08] MEDS: THERAPEUTIC MULTIVITAMINS/MINERALS TAB (*BKC) 1 TABLET PO (08:58)
[2023-10-08] MEDS: TAMSULOSIN HCL 0.4 MG CAPSULE PO (08:58)
[2023-10-08] MEDS: carvediloL 3.125 MG TABLET PO ×2 (08:59→19:57)
[2023-10-08 09:49] LABS: Carbamazepine Tegretol 6.6 mcg/mL (4.0-12.0)
[2023-10-08 11:21] LABS: Glucose Point of Care 230 mg/dl (65-105)
[2023-10-08] MEDS: INSULIN ASPART (*BKC) 100 UNITS/ML SUB-Q (11:55)
[2023-10-08 16:34] LABS: Glucose Point of Care 177 mg/dl (65-105)
--- NOTE | 2023-10-08 16:38 | PM.IMPN ---
Progress Note: A&P Assessment and Plan (1) History of completed stroke: Code(s): Z86.73 - Personal history of transient ischemic attack (TIA), and cerebral infarction without residual deficits Status: Acute (2) Coronary artery disease: Code(s): I25.10 - Atherosclerotic heart disease of [place] coronary artery without angina pectoris Status: Chronic (3) Hypertension: Qualifiers: Hypertension type: primary hypertension Qualified Code(s): I10 - Essential (primary) hypertension Code(s): I10 - Essential (primary) hypertension Status: Acute (4) Delirium: Code(s): R41.0 - Disorientation, unspecified Status: Acute (5) Cerebrovascular accident: Onset Date: 06/2021 Code(s): I63.9 - Cerebral infarction, unspecified Status: Chronic (6) Type 2 diabetes mellitus: Qualifiers: Diabetes mellitus detention insulin use: with loft worker head use Diabetes mellitus complication status: with circulatory complication Diabetes mellitus complication detail: with other circulatory complications Qualified Code(s): E11.59 - Type 2 diabetes mellitus with other circulatory complications; Z79.4 - button sawyer (current) use of insulin Code(s): E11.9 - Type 2 diabetes mellitus without complications Status: Acute (7) Seizure disorder: Code(s): G40.909 - Epilepsy, unspecified, not intractable, without status epilepticus Status: Acute (8) BPH (benign prostatic hyperplasia): Qualifiers: Lower urinary tract symptom presence: symptoms present Lower urinary tract symptom detail: unspecified Qualified Code(s): N40.1 - Benign prostatic hyperplasia with lower urinary tract symptoms Code(s): N40.0 - Benign prostatic hyperplasia without lower urinary tract symptoms Status: Acute (9) Encephalopathy: Code(s): G93.40 - Encephalopathy, unspecified Status: Acute (10) Leukocytosis: Code(s): D72.829 - Elevated white blood cell count, unspecified Status: Acute Plan This is a 63-year-old male with history of CAD status post stent and bypass, right toe amputation, history of CVA, insulin-dependent diabetes mellitus, hypertension, COPD, ILANA, peripheral artery disease, BPH, epilepsy.? Patient presented with right foot pain.? He is status post debridement of right foot wound on 09/18 with general anesthesia and now has a wound VAC. the patient became increasingly agitated and delirious post debridement on 09/18. He also underwent urethral dilation with Urology on 09/29 with MAC. #Delirium -reported history of prolonged postop delirium anesthesia many years ago. Underwent foot debridement and urethral dilation on 09/18 and 09/29 respectively. Of course, patient has osteomyelitis and that is a confounding factor. -neurology consulted. Exhaustive workup conducted, they continue to follow. -Seroquel 50 mg q.h.s. started on 09/29. On 09/30 [place] was discontinued and the patient appeared to become more lucid however that did not last long. He was not requiring restraints 10/02 became increasingly aggressive and due to potential harm to himself he has required physical restraints and Haldol. -on 10/03 the patient's delirium has not improved. Dr. Cesar has been contacted, recommendations given: Start sertraline 25 mg p.o. q.day increase Seroquel from 50 mg to 100 mg q.h.s. repeat wide workup for the evaluation of delirium: RPR, UA, blood cultures, hepatitis panel, HIV, ammonia level, B12 and folate, vitamin D, carbamazepine level, repeat MRI if possible. -the differential remains wide. Check EKG again ensure the QTC is still low enough to administer the above medications. He also continues require Haldol in spite of the risk to ensure the benefit of patient and staff safety. Avoid sedatives if possible, antipsychotics are more beneficial for postop delirium. Continue to promote good sleep-wake cycle. Continue to treat osteomyelitis. Please
[2023-10-08 19:40] LABS: Glucose Point of Care 192 mg/dl (65-105)
[2023-10-08] MEDS: QUEtiapine FUMARATE 100 MG TABLET PO (19:58)
[2023-10-09 05:54] VITALS: BP 113/68; PULSE 78; RESP 18; TEMP 36.1; O2SAT 99
[2023-10-09] MEDS: HEPARIN SODIUM 5,000 UNITS/ML VIAL 5000 UNITS SUB-Q ×3 (05:55→19:57)
[2023-10-09] MEDS: carBAMazepine 200 MG TABLET PO ×3 (05:55→19:57)
[2023-10-09 06:23] LABS: Basophils Absolute Auto 0.1 K/mm3 (0.0-0.1); Basophils Percent Auto 0.8 % (0.2-1.2); Eosinophils Absolute Auto 0.4 K/mm3 (0-0.3); Eosinophils Percent Auto 4.2 % (0-4.4); Hematocrit 37.3 % (42.0-52.0); Immature Granulocyte Absolute 0.03 K/mm3 (0.00-0.031); Immature Granulocyte Percent A 0.3 % (0-0.5); Lymphocytes Absolute Auto 2.48 K/mm3 (0.9-3.2); Lymphocytes Percent Auto 28.4 % (18.3-44.2); Mean Corpuscular HGB Conc 32.2 g/dl (32-36); Mean Corpuscular Hemoglobin 30.8 pg (26-34); Mean Corpuscular Volume 95.9 fl (80-100); Mean Platelet Volume 11.3 fl (7.4-10.4); Monocytes Absolute Auto 0.9 K/mm3 (0.1-0.6); Monocytes Percent Auto 10.7 % (2.6-8.5); Neutrophils Absolute Auto 4.9 K/mm3 (1.3-6.7); Neutrophils Percent Auto 55.6 % (45.5-73.1); Platelet Count Result 304 k/mm3 (150-375); Red Blood Count 3.89 M/mm3 (4.6-6.20); Red Cell Distribution Width 16.8 % (11.5-14.5); White Blood Count 8.7 K/mm3 (4.5-10.0)
[2023-10-09 06:47] LABS: Anion Gap 9 mmol/L (4-12); Blood Urea Nitrogen 14 mg/dL (9-20); Calcium 9.5 mg/dL (8.4-10.2); Carbon Dioxide 21 mmol/L (22-30); Chloride 105 mmol/L (98-107); Estimated CRCL calculation 68 ml/min; Estimated Glomerular Filt Rate > 60; Glucose 140 mg/dL (65-110); Potassium 4.3 mmol/L (3.4-5.0); Sodium 135 mmol/L (137-145)
[2023-10-09 07:40] LABS: Glucose Point of Care 134 mg/dl (65-105)
[2023-10-09 08:00] VITALS: PULSE 78; RESP 18; O2SAT 99
[2023-10-09] MEDS: ASPIRIN 81 MG ENTERIC TABLET PO (08:12)
[2023-10-09] MEDS: SERTRALINE HCL 25 MG TABLET PO (08:12)
[2023-10-09] MEDS: levoFLOXacin 750 MG TABLET PO (08:12)
[2023-10-09] MEDS: THERAPEUTIC MULTIVITAMINS/MINERALS TAB (*BKC) 1 TABLET PO (08:12)
[2023-10-09] MEDS: ATORVASTATIN 40 MG TABLET PO (08:12)
[2023-10-09] MEDS: FINASTERIDE 5 MG TABLET PO (08:12)
[2023-10-09] MEDS: TAMSULOSIN HCL 0.4 MG CAPSULE PO (08:12)
[2023-10-09] MEDS: carvediloL 3.125 MG TABLET PO ×2 (08:18→20:35)
[2023-10-09] MEDS: polyethylene glycoL 3350 17 GM POWD.PACK PO (08:18)
[2023-10-09] MEDS: DOXYCYCLINE HYCLATE 100 MG TABLET PO ×2 (08:18→19:57)
[2023-10-09] MEDS: ONDANSETRON INJ 4 MG/2 ML VIAL IV PUSH ×2 (08:34→19:52)
--- NOTE | 2023-10-09 09:58 | PCOTNOTE ---
Attempted to see pt for Occupational Therapy treatment. Pt was sleeping upon arrival and was able to wake up with therapist arrival. Pt is reporting increase nausea and states he is waiting for RN to give him anti-nausea meds. Pt states that all he wants is to sleep. Will attempt at a later time per poc duration/frequency.
--- NOTE | 2023-10-09 11:00 | PCPTNOTE ---
11:00 Pt refused treatment due to feel sick. Pt is in bed with emesis bag. Pt stated he has been sick all morning.
[2023-10-09 11:16] LABS: Glucose Point of Care 190 mg/dl (65-105)
--- NOTE | 2023-10-09 12:21 | PCOTNOTE ---
2nd attempt was made to have pt participate in Occupational therapy treatment. Pt reports continued nausea and states that anti-nausea meds made it worse for him. Pt also declined any white soda and/or crackers as well as sitting up in the recline. Pt expresses that he was to continued taking his nap. Pt is educated on the importance of continued therapy participation for independence with daily tasks. Will attempt tomorrow per POC duration/frequency.
--- NOTE | 2023-10-09 13:44 | PCSTNOTE ---
Attempted to see patient for speech therapy during lunch to assess appropriateness of diet texture change, but he refused therapy and lunch, states he feels to sick to eat today. Will remain on list to be seen tomorrow.
[2023-10-09 14:00] VITALS: BP 116/61; PULSE 68; RESP 18; TEMP 36.1; O2SAT 98
--- NOTE | 2023-10-09 15:41 | PM.IMPN ---
Progress Note: A&P Assessment and Plan (1) History of completed stroke: Code(s): Z86.73 - Personal history of transient ischemic attack (TIA), and cerebral infarction without residual deficits Status: Acute (2) Coronary artery disease: Code(s): I25.10 - Atherosclerotic heart disease of [place] coronary artery without angina pectoris Status: Chronic (3) Hypertension: Qualifiers: Hypertension type: primary hypertension Qualified Code(s): I10 - Essential (primary) hypertension Code(s): I10 - Essential (primary) hypertension Status: Acute (4) Delirium: Code(s): R41.0 - Disorientation, unspecified Status: Acute (5) Cerebrovascular accident: Onset Date: 06/2021 Code(s): I63.9 - Cerebral infarction, unspecified Status: Chronic (6) Type 2 diabetes mellitus: Qualifiers: Diabetes mellitus fdc insulin use: with truck terminal manager use Diabetes mellitus complication status: with circulatory complication Diabetes mellitus complication detail: with other circulatory complications Qualified Code(s): E11.59 - Type 2 diabetes mellitus with other circulatory complications; Z79.4 - petroleum terminal plant operator (current) use of insulin Code(s): E11.9 - Type 2 diabetes mellitus without complications Status: Acute (7) Seizure disorder: Code(s): G40.909 - Epilepsy, unspecified, not intractable, without status epilepticus Status: Acute (8) BPH (benign prostatic hyperplasia): Qualifiers: Lower urinary tract symptom presence: symptoms present Lower urinary tract symptom detail: unspecified Qualified Code(s): N40.1 - Benign prostatic hyperplasia with lower urinary tract symptoms Code(s): N40.0 - Benign prostatic hyperplasia without lower urinary tract symptoms Status: Acute (9) Encephalopathy: Code(s): G93.40 - Encephalopathy, unspecified Status: Acute (10) Leukocytosis: Code(s): D72.829 - Elevated white blood cell count, unspecified Status: Acute Plan This is a 63-year-old male with history of CAD status post stent and bypass, right toe amputation, history of CVA, insulin-dependent diabetes mellitus, hypertension, COPD, ILANA, peripheral artery disease, BPH, epilepsy.? Patient presented with right foot pain.? He is status post debridement of right foot wound on 09/18 with general anesthesia and now has a wound VAC. the patient became increasingly agitated and delirious post debridement on 09/18. He also underwent urethral dilation with Urology on 09/29 with MAC. October 08: He is doing great relative to his prior delirium. He has slow movement can carry a conversation and at times is A&O x3. Continue oral antibiotics and continue to appreciate surgery recommendations. Leukocytosis has resolved. Continue oral antibiotics for at least 6 weeks status post debridement. He complains of constipation so Senokot S tablet 1 tab b.i.d. has been added. Continue to monitor for improvement. #Delirium -reported history of prolonged postop delirium anesthesia many years ago. Underwent foot debridement and urethral dilation on 09/18 and 09/29 respectively. Of course, patient has osteomyelitis and that is a confounding factor. -neurology consulted. Exhaustive workup conducted, they continue to follow. -Seroquel 50 mg q.h.s. started on 09/29. On 09/30 [place] was discontinued and the patient appeared to become more lucid however that did not last long. He was not requiring restraints 10/02 became increasingly aggressive and due to potential harm to himself he has required physical restraints and Haldol. -on 10/03 the patient's delirium has not improved. Dr. Cesar has been contacted, recommendations given: Start sertraline 25 mg p.o. q.day increase Seroquel from 50 mg to 100 mg q.h.s. repeat wide workup for the evaluation of delirium: RPR, UA, blood cultures, hepatitis panel, HIV, ammonia level, B12 and folate, vitamin D, carbamazep
[2023-10-09] MEDS: SENNA/DOCUSATE SODIUM TABLET 1 TAB BY MOUTH (15:45)
[2023-10-09 16:24] LABS: Glucose Point of Care 189 mg/dl (65-105)
[2023-10-09] MEDS: ZOLPIDEM TARTRATE (*CRX) 5 MG TABLET PO (19:57)
[2023-10-09] MEDS: QUEtiapine FUMARATE 100 MG TABLET PO (19:57)
[2023-10-09] MEDS: SENNA/DOCUSATE SODIUM TABLET 1 TAB PO (19:57)
[2023-10-09 19:58] LABS: Glucose Point of Care 203 mg/dl (65-105)
[2023-10-09 20:05] VITALS: BP 119/77; PULSE 85; RESP 18; TEMP 36.9; O2SAT 100
[2023-10-09] MEDS: CALCIUM CARBONATE (TUMS) 500 MG (200 MG ELEMENTAL) 400 MG PO (22:38)
[2023-10-09] MEDS: traZODone HCL 50 MG TABLET PO (23:22)
[2023-10-10 05:31] VITALS: BP 110/58; PULSE 75; RESP 16; TEMP 36.4; O2SAT 100
[2023-10-10] MEDS: HEPARIN SODIUM 5,000 UNITS/ML VIAL 5000 UNITS SUB-Q (05:56)
[2023-10-10] MEDS: carBAMazepine 200 MG TABLET PO (05:56)
[2023-10-10 07:54] LABS: Glucose Point of Care 156 mg/dl (65-105)
[2023-10-10 08:00] VITALS: PULSE 75; RESP 16; O2SAT 100
[2023-10-10] MEDS: levoFLOXacin 750 MG TABLET PO (09:03)
[2023-10-10] MEDS: SENNA/DOCUSATE SODIUM TABLET 1 TAB BY MOUTH (09:04)
[2023-10-10] MEDS: FINASTERIDE 5 MG TABLET PO (09:04)
[2023-10-10] MEDS: polyethylene glycoL 3350 17 GM POWD.PACK PO (09:04)
[2023-10-10] MEDS: THERAPEUTIC MULTIVITAMINS/MINERALS TAB (*BKC) 1 TABLET PO (09:04)
[2023-10-10] MEDS: TAMSULOSIN HCL 0.4 MG CAPSULE PO (09:04)
[2023-10-10] MEDS: ATORVASTATIN 40 MG TABLET PO (09:04)
[2023-10-10] MEDS: carvediloL 3.125 MG TABLET PO (09:04)
[2023-10-10] MEDS: ASPIRIN 81 MG ENTERIC TABLET PO (09:04)
[2023-10-10] MEDS: DOXYCYCLINE HYCLATE 100 MG TABLET PO (09:04)
[2023-10-10] MEDS: SERTRALINE HCL 25 MG TABLET PO (09:04)
--- NOTE | 2023-10-10 09:20 | PM.PNORT ---
Progress Note: A&P Assessment and Plan (1) Diabetic foot ulcer: Qualifiers: Diabetic foot ulcer location: heel Diabetes mellitus type: type 2 Laterality: right Non-pressure ulcer stage: with necrosis of muscle Qualified Code(s): E11.621 - Type 2 diabetes mellitus with foot ulcer; L97.413 - Non-pressure chronic ulcer of right heel and midfoot with necrosis of muscle Code(s): E11.621 - Type 2 diabetes mellitus with foot ulcer; L97.509 - Non-pressure chronic ulcer of other part of unspecified foot with unspecified severity Status: Acute Assessment and Plan: Postop day 3, right diabetic foot ulcer debridement with graft application. Wound VAC dressing removed today. Graft appears viable and appears to be incorporating. Remains intact. Plan to remove wound VAC dressing today and place patient in a total contact cast. Patient should continue nonweightbearing activities. Continue medical care. Patient plans to be [facility]. Will follow in the outpatient wound care setting for serial cast changes and post graft care. Subjective Subjective Date/Time Seen: 10/10/23 09:20 Post Op day: 3 Principal diagnosis: right diabetic foot ulcer Interval history: Patient with continued improvement in mentation but still not answering all questions appropriately. Denies pain. Reviewed treatment plan for the right diabetic foot ulcer Review of Systems Constitutional: Constitutional: Denies fever(s) Eyes: Eyes: Denies blurry vision ENT: Reports Normal hearing present Cardiovascular: Cardiovascular: Denies chest pain and Denies dyspnea Respiratory: Respiratory: Denies dyspnea and Denies wheezing Gastrointestinal: Gastrointestinal: Denies abdominal pain Genitourinary: Genitourinary: Denies urinary urgency Musculoskeletal: Musculoskeletal: Reports as per HPI and Denies numbness Integumentary/Breasts: Skin/Breast: Denies changing lesions and Denies sores Neurologic: Reports Normal hearing present, Denies behavioral changes, Denies confusion, Denies numbness and Denies convulsions Psychiatric: Psychiatric: Denies behavioral changes, Denies confusion and Denies hallucinations Endocrine: Endocrine: Denies heat intolerance Hematologic/Lymphatic: Hematologic/Lymphatic: Denies easy bleeding Allergic/Immunologic: Allergic/Immunologic: Denies wheezing Exam Const: General: lethargic and average body habitus; No combative or diaphoretic Orientation/consciousness: oriented to person, oriented to place and oriented to time Resp: Effort & Inspection: normal respiratory effort Skin: Wounds: wounds noted (RIGHT Medial Heel Wound ) Extrem: Other: Right heel ulcer Dressing in place. Foot/ leg without erythema, mild swelling. Objective Data Vital Signs Vital Signs: Vital Signs - 24 hr 10/09/23 14:00 10/09/23 20:05 10/09/23 20:00 Temperature 36.1 C L 36.9 C Pulse Rate 68 85 Respiratory Rate 18 18 Blood Pressure 116/61 119/77 Pulse Oximetry 98 100 Oxygen Delivery Room Air 10/10/23 05:31 Temperature 36.4 C Pulse Rate 75 Respiratory Rate 16 Blood Pressure 110/58 L Pulse Oximetry 100 Oxygen Delivery Intake/Output Intake/Output: Intake & Output 10/07/23 10/08/23 10/09/23 10/10/23 23:59 23:59 23:59 23:59 Intake Total 1290 1144 950 684 Output Total 543 718 4628 600 Balance 540 244 -1250 84 Meds/Results Medications: Active Medications Generic Name Dose Route Start Last Admin Trade Name Freq PRN Reason Stop Dose Admin Acetaminophen 650 mg 09/17/23 06:25 10/07/23 18:19 Acetaminophen 325 Mg Tablet PO 650 mg Q4H PRN Administration Mild Pain (1-3) or Fever Aspirin 81 mg 09/18/23 09:00 10/10/23 09:04 Aspirin 81 Mg Enteric Tablet PO 81 mg DAILY LEAH Administration Atorvastatin Calcium 40 mg 09/18/23 09:00 10/10/23 09:04 Atorvastatin 40 Mg Tablet PO 40 mg DAILY LEAH Administration Calcium Car
--- NOTE | 2023-10-10 10:30 | PM.IMPN ---
Progress Note: A&P Assessment and Plan (1) History of completed stroke: Code(s): Z86.73 - Personal history of transient ischemic attack (TIA), and cerebral infarction without residual deficits Status: Acute (2) Coronary artery disease: Code(s): I25.10 - Atherosclerotic heart disease of [place] coronary artery without angina pectoris Status: Chronic (3) Hypertension: Qualifiers: Hypertension type: primary hypertension Qualified Code(s): I10 - Essential (primary) hypertension Code(s): I10 - Essential (primary) hypertension Status: Acute (4) Delirium: Code(s): R41.0 - Disorientation, unspecified Status: Acute (5) Cerebrovascular accident: Onset Date: 06/2021 Code(s): I63.9 - Cerebral infarction, unspecified Status: Chronic (6) Type 2 diabetes mellitus: Qualifiers: Diabetes mellitus complication detail: with other circulatory complications Diabetes mellitus complication status: with circulatory complication Diabetes mellitus care home insulin use: with care home use Qualified Code(s): E11.59 - Type 2 diabetes mellitus with other circulatory complications; Z79.4 - roasterman (current) use of insulin Code(s): E11.9 - Type 2 diabetes mellitus without complications Status: Acute (7) Seizure disorder: Code(s): G40.909 - Epilepsy, unspecified, not intractable, without status epilepticus Status: Acute (8) BPH (benign prostatic hyperplasia): Qualifiers: Lower urinary tract symptom detail: unspecified Lower urinary tract symptom presence: symptoms present Qualified Code(s): N40.1 - Benign prostatic hyperplasia with lower urinary tract symptoms Code(s): N40.0 - Benign prostatic hyperplasia without lower urinary tract symptoms Status: Acute (9) Encephalopathy: Code(s): G93.40 - Encephalopathy, unspecified Status: Acute (10) Leukocytosis: Code(s): D72.829 - Elevated white blood cell count, unspecified Status: Acute Plan This is a 63-year-old male with history of CAD status post stent and bypass, right toe amputation, history of CVA, insulin-dependent diabetes mellitus, hypertension, COPD, ILANA, peripheral artery disease, BPH, epilepsy.? Patient presented with right foot pain.? He is status post debridement of right foot wound on 09/18 with general anesthesia and now has a wound VAC. the patient became increasingly agitated and delirious post debridement on 09/18. He also underwent urethral dilation with Urology on 09/29 with MAC. October 08: He is doing great relative to his prior delirium. He has slow movement can carry a conversation and at times is A&O x3. Continue oral antibiotics and continue to appreciate surgery recommendations. Leukocytosis has resolved. Continue oral antibiotics for at least 6 weeks status post debridement. He complains of constipation so Senokot S tablet 1 tab b.i.d. has been added. Continue to monitor for improvement. #Delirium -reported history of prolonged postop delirium anesthesia many years ago. Underwent foot debridement and urethral dilation on 09/18 and 09/29 respectively. Of course, patient has osteomyelitis and that is a confounding factor. -neurology consulted. Exhaustive workup conducted, they continue to follow. -Seroquel 50 mg q.h.s. started on 09/29. On 09/30 [place] was discontinued and the patient appeared to become more lucid however that did not last long. He was not requiring restraints 10/02 became increasingly aggressive and due to potential harm to himself he has required physical restraints and Haldol. -on 10/03 the patient's delirium has not improved. Dr. Cesar has been contacted, recommendations given: Start sertraline 25 mg p.o. q.day increase Seroquel from 50 mg to 100 mg q.h.s. repeat wide workup for the evaluation of delirium: RPR, UA, blood cultures, hepatitis panel, HIV, ammonia level, B12 and folate, vitamin D, carbamazep
[2023-10-10 10:54] LABS: Basophils Absolute Auto 0.1 K/mm3 (0.0-0.1); Basophils Percent Auto 0.8 % (0.2-1.2); Eosinophils Absolute Auto 0.2 K/mm3 (0-0.3); Eosinophils Percent Auto 2.2 % (0-4.4); Hematocrit 36.1 % (42.0-52.0); Hemoglobin 11.7 g/dL (14.0-18.0); Immature Granulocyte Absolute 0.02 K/mm3 (0.00-0.031); Immature Granulocyte Percent A 0.2 % (0-0.5); Lymphocytes Percent Auto 17.6 % (18.3-44.2); Mean Corpuscular HGB Conc 32.4 g/dl (32-36); Mean Corpuscular Hemoglobin 30.5 pg (26-34); Mean Platelet Volume 11.2 fl (7.4-10.4); Monocytes Absolute Auto 0.9 K/mm3 (0.1-0.6); Monocytes Percent Auto 10.6 % (2.6-8.5); Neutrophils Absolute Auto 5.8 K/mm3 (1.3-6.7); Neutrophils Percent Auto 68.6 % (45.5-73.1); Platelet Count Result 299 k/mm3 (150-375); Red Blood Count 3.84 M/mm3 (4.6-6.20); Red Cell Distribution Width 16.8 % (11.5-14.5); White Blood Count 8.5 K/mm3 (4.5-10.0)
[2023-10-10 11:14] LABS: Anion Gap 8 mmol/L (4-12); Blood Urea Nitrogen 14 mg/dL (9-20); Calcium 9.5 mg/dL (8.4-10.2); Carbon Dioxide 20 mmol/L (22-30); Chloride 103 mmol/L (98-107); Estimated CRCL calculation 68 ml/min; Estimated Glomerular Filt Rate > 60; Glucose 222 mg/dL (65-110); Potassium 4.4 mmol/L (3.4-5.0); Sodium 131 mmol/L (137-145)
[2023-10-10 11:25] LABS: Glucose Point of Care 229 mg/dl (65-105)
--- NOTE | 2023-10-10 11:41 | PCNFU ---
Nutrition Follow-Up Complete: Inadequate energy intake related to diet order as evidenced by clear liquid status Goal:Diet advanced PO intake 75% of meals Pt meeting goals at this time. Continue with same goals. Pt current nutrition is Diabetic consistent carb/ minced and moist level 5. Nutrition recommendation: Add Glucerna shakes BID Last recorded weight is 81 kg. Bowel Motility: No BM recorded at this time Labs Reviewed: Hgb:12, HCT:37.5, NA:135, Glu:140 Meds Noted: novolog, zofran, heparin, MVI Skin: WNL Additional Notes: pt continues on a minced and moist level 5 diabetic diet. Pt is more alert and oriented now, intake improved some. Agreed to Glucerna shakes BID. Will order Monitor diet orders, intake, wt, labs. Follow up in 5 days
[2023-10-10 14:00] VITALS: BP 113/75; PULSE 82; RESP 16; TEMP 36; O2SAT 99
[2023-10-10 14:05] LABS: SARS-CoV-2 RNA PCR Negative (Negative)
--- NOTE | 2023-10-11 07:34 | PM.DS ---
DS: Admitting Diagnosis Discharge Date 10/10/23 Admitting Diagnosis (1) History of completed stroke: ?Code(s): Z86.73 - Personal history of transient ischemic attack (TIA), and cerebral infarction without residual deficits ?Status:?Acute (2) Coronary artery disease: ?Code(s): I25.10 - Atherosclerotic heart disease of [place] coronary artery without angina pectoris ?Status:?Chronic (3) Hypertension: ?Qualifiers: ?Hypertension type:?primary hypertension? Qualified Code(s):?I10 - Essential (primary) hypertension ?Code(s): I10 - Essential (primary) hypertension ?Status:?Acute (4) Delirium: ?Code(s): R41.0 - Disorientation, unspecified ?Status:?Acute (5) Cerebrovascular accident: ?Onset Date:?06/2021 ?Code(s): I63.9 - Cerebral infarction, unspecified ?Status:?Chronic (6) Type 2 diabetes mellitus: ?Qualifiers: ?Diabetes mellitus complication detail:?with other circulatory complications??Diabetes mellitus complication status:?with circulatory complication??Diabetes mellitus watermelon harvesting supervisor insulin use:?with custodial use? Qualified Code(s):?E11.59 - Type 2 diabetes mellitus with other circulatory complications; Z79.4 - continuous churn buttermaker (current) use of insulin ?Code(s): E11.9 - Type 2 diabetes mellitus without complications ?Status:?Acute (7) Seizure disorder: ?Code(s): G40.909 - Epilepsy, unspecified, not intractable, without status epilepticus ?Status:?Acute (8) BPH (benign prostatic hyperplasia): ?Qualifiers: ?Lower urinary tract symptom detail:?unspecified??Lower urinary tract symptom presence:?symptoms present? Qualified Code(s):?N40.1 - Benign prostatic hyperplasia with lower urinary tract symptoms ?Code(s): N40.0 - Benign prostatic hyperplasia without lower urinary tract symptoms ?Status:?Acute (9) Encephalopathy: ?Code(s): G93.40 - Encephalopathy, unspecified ?Status:?Acute (10) Leukocytosis: ?Code(s): D72.829 - Elevated white blood cell count, unspecified ?Status:?Acute DS: Discharge Diagnosis Discharge Diagnosis (1) History of completed stroke: Code(s): Z86.73 - Personal history of transient ischemic attack (TIA), and cerebral infarction without residual deficits Status: Acute (2) Coronary artery disease: Code(s): I25.10 - Atherosclerotic heart disease of [place] coronary artery without angina pectoris Status: Chronic (3) Hypertension: Qualifiers: Hypertension type: primary hypertension Qualified Code(s): I10 - Essential (primary) hypertension Code(s): I10 - Essential (primary) hypertension Status: Acute (4) Delirium: Code(s): R41.0 - Disorientation, unspecified Status: Acute (5) Cerebrovascular accident: Onset Date: 06/2021 Code(s): I63.9 - Cerebral infarction, unspecified Status: Chronic (6) Type 2 diabetes mellitus: Qualifiers: Diabetes mellitus watermelon harvesting supervisor insulin use: with custodial use Diabetes mellitus complication status: with circulatory complication Diabetes mellitus complication detail: with other circulatory complications Qualified Code(s): E11.59 - Type 2 diabetes mellitus with other circulatory complications; Z79.4 - continuous churn buttermaker (current) use of insulin Code(s): E11.9 - Type 2 diabetes mellitus without complications Status: Acute (7) Seizure disorder: Code(s): G40.909 - Epilepsy, unspecified, not intractable, without status epilepticus Status: Acute (8) BPH (benign prostatic hyperplasia): Qualifiers: Lower urinary tract symptom presence: symptoms present Lower urinary tract symptom detail: unspecified Qualified Code(s): N40.1 - Benign prostatic hyperplasia with lower urinary tract symptoms Code(s): N40.0 - Benign prostatic hyperplasia without lower urinary tract symptoms Status: Acute (9) Encephalopathy: Code(s): G93.40
[2023-10-23 22:04] LABS: Vitamin B1 14 nmol/L (8-30)
== END 2023-10-10 15:04 | DRG 710 ==
LOC: ANHED 09-17 01:25 → ANH3MEDSUR 09-17 08:48
PROVIDERS: General Practice; Internal Medicine; Internal Medicine Nephrology; Orthopaedic Surgery; Physician Assistant; Student in an Organized Health Care Education/Training Program; Urology; Admitting Provider Internal Medicine; Emergency Provider Student in an Organized Health Care Education/Training Program; PCP Family Medicine; Visit Provider Hospitalist
PROC: 0KBV0ZZ Excision of Right Foot Muscle, Open Approach (ICD-10-PCS; principal; 2023-09-19 10:00)
PROC: 0T7D8ZZ Dilation of Urethra, Via Natural or Artificial Opening Endoscopic (ICD-10-PCS; CPT 52281; principal; 2023-09-30 13:00)
PROC: 0QBL0ZZ Excision of Right Tarsal, Open Approach (ICD-10-PCS; principal; 2023-10-06 11:00)
DX: A41.9 Sepsis, unspecified organism (principal); E11.621 Type 2 diabetes mellitus with foot ulcer; L97.419 Non-pressure chronic ulcer of right heel and midfoot with unspecified severity; Z20.822 Contact with and (suspected) exposure to COVID-19; J44.9 Chronic obstructive pulmonary disease, unspecified; D64.9 Anemia, unspecified; K21.9 Gastro-esophageal reflux disease without esophagitis; G93.41 Metabolic encephalopathy; G47.33 Obstructive sleep apnea (adult) (pediatric); B95.4 Other streptococcus as the cause of diseases classified elsewhere; L03.115 Cellulitis of right lower limb; I10 Essential (primary) hypertension; E87.6 Hypokalemia; D72.829 Elevated white blood cell count, unspecified; N40.0 Benign prostatic hyperplasia without lower urinary tract symptoms; M86.9 Osteomyelitis, unspecified; E11.628 Type 2 diabetes mellitus with other skin complications; G40.909 Epilepsy, unspecified, not intractable, without status epilepticus; E11.42 Type 2 diabetes mellitus with diabetic polyneuropathy; K59.00 Constipation, unspecified; I73.9 Peripheral vascular disease, unspecified; R45.1 Restlessness and agitation; R41.0 Disorientation, unspecified; I69.398 Other sequelae of cerebral infarction; N35.919 Unspecified urethral stricture, male, unspecified site; R33.9 Retention of urine, unspecified; H53.9 Unspecified visual disturbance; R42 Dizziness and giddiness; I69.391 Dysphagia following cerebral infarction; Z95.5 Presence of coronary angioplasty implant and graft; Z95.1 Presence of aortocoronary bypass graft; Z89.412 Acquired absence of left great toe; Z89.411 Acquired absence of right great toe; Z87.891 Personal history of nicotine dependence; Z79.4 Long term (current) use of insulin; Z78.1 Physical restraint status
CPT/HCPCS: 36415; 36600; 62328; 70450; 70551; 71045; 71046; 71260; 73630; 74177; 80048; 80053; 80074; 80156; 80202; 80307; 81001; 82010; 82140; 82306; 82565; 82607; 82652; 82746; 82803; 82805; 82945; 82948; 83605; 83735; 84100; 84145; 84157; 84425; 84443; 84484; 85025; 85027; 85610; 85652; 85730; 86140; 86592; 86617; 86703; 86787; 87040; 87070; 87075; 87102; 87205; 87206; 87529; 87635; 87637; 87798; 89051; 92610; 93005; 93971; 94669; 95816; 96361; 96365; 96366; 96367; 96375; 97110; 97161; 97162; 97164; 97166; 97530; 97535; 99199; 99285; A9270; C1726; C1769; G0378; G0379; G0432; J0133; J0290; J0295; J0692; J1170; J1200; J1630; J1644; J1650; J1815; J1885; J2001; J2060; J2250; J2270; J2310; J2405; J2704; J3010; J3370; J3411; J7030; J7050; J7060; J7120; Q9967

== ENCOUNTER 2023-10-13 22:15 | Observation (INO) | payer BC, SELFPAY ==
--- NOTE | ~2023-10-13 | XR_ITS ---
XR foot RT 2V 10/14/2023 01:22 Indication: Osteomyelitis. Recent foot surgery. Procedure: 3 views right foot pain Comparison: 09/17/2023 Findings: Status post recent partial resection of the calcaneus posteriorly inferiorly with overlying staple lines and soft tissue irregularity. Cannot exclude underlying osteomyelitis. Status post part ial amputation of the right first toe. There is atherosclerosis. Impression: 1: Postoperative changes of the calcaneus. Cannot exclude underlying osteomyelitis. Consider correlat ion with MRI with contrast. Reviewed, dictated and finalized at location B. Impression: 1: Postoperative changes of the calcaneus. Cannot exclude underlying osteomyeli tis. Consider correlation with MRI with contrast.
--- NOTE | ~2023-10-13 | CT_ITS ---
EXAMINATION: CT brain wo con DATE: 10/13/2023 23:48 INDICATION: Altered mental status. TECHNIQUE: Computed tomography (CT) of the head was performed without intravenous contrast. The mA wa s adjusted according to patient size. Iterative reconstruction technique was employed. The dose-lengt h product was 605.33 mGy-cm. COMPARISON: Head CT 09/23/2023 FINDINGS: There is an old infarct in right cerebellum. There is an old infarct in left cerebellum. Th ere is an old infarct in the left basal ganglia. There is an old infarct involving right temporal occ ipital region. There are scattered areas of low attenuation in the cerebral white matter. There is an old infarct in right thalamus. There is no intracranial hemorrhage, acute infarction, or abnormal in tracranial mass lesion. There is ex vacuo dilatation of occipital horn of right lateral ventricle. Th e orbits are normal. There is mild mucosal thickening in the paranasal sinuses. The mastoid air cells are normal. There is cerumen in left external auditory canal. IMPRESSION: 1. Old infarcts in the brain. 2. Stable mild nonspecific cerebral white matter disease, which likely represents chronic small vesse l ischemic disease. Reviewed, dictated and finalized at location E. IMPRESSION: 1. Old infarcts in the brain. 2. Stable mild nonspecific cerebral white matter disease, which likely represen ts chronic small vessel ischemic disease.
--- NOTE | ~2023-10-13 | XR_ITS ---
EXAMINATION: XR chest 2V DATE: 10/13/2023 23:52 INDICATION: Weakness. TECHNIQUE: Frontal and lateral views of the chest were obtained. COMPARISON: Chest 2 views 10/05/2023, chest CT 09/23/2023 FINDINGS: There are airspace opacities in left lower lung zone. No pleural effusion or pneumothorax. Cardiomegaly is noted. Median sternotomy wires and mediastinal surgical clips are seen, likely from p rior coronary artery bypass grafting. IMPRESSION: 1. Airspace opacities in left lower lung zone, consistent with atelectasis versus pneumonia. 2. Cardiomegaly. Reviewed, dictated and finalized at location E. IMPRESSION: 1. Airspace opacities in left lower lung zone, consistent with atelectasis vers us pneumonia. 2. Cardiomegaly.
[2023-10-13 22:25] VITALS: BP 91/57; PULSE 90; RESP 19; TEMP 36.8; O2SAT 99
[2023-10-13 23:16] VITALS: BP 100/64; PULSE 93; RESP 21; O2SAT 98
[2023-10-13 23:40] LABS: Basophils Absolute Auto 0.1 K/mm3 (0.0-0.1); Basophils Percent Auto 0.4 % (0.2-1.2); Eosinophils Absolute Auto 0.3 K/mm3 (0-0.3); Eosinophils Percent Auto 2.3 % (0-4.4); Hematocrit 32.4 % (42.0-52.0); Hemoglobin 10.8 g/dL (14.0-18.0); Immature Granulocyte Absolute 0.03 K/mm3 (0.00-0.031); Immature Granulocyte Percent A 0.2 % (0-0.5); Lymphocytes Absolute Auto 2.17 K/mm3 (0.9-3.2); Lymphocytes Percent Auto 15.9 % (18.3-44.2); Mean Corpuscular HGB Conc 33.3 g/dl (32-36); Mean Corpuscular Hemoglobin 31.2 pg (26-34); Mean Corpuscular Volume 93.6 fl (80-100); Mean Platelet Volume 11.2 fl (7.4-10.4); Monocytes Absolute Auto 1.6 K/mm3 (0.1-0.6); Monocytes Percent Auto 11.7 % (2.6-8.5); Neutrophils Absolute Auto 9.5 K/mm3 (1.3-6.7); Neutrophils Percent Auto 69.5 % (45.5-73.1); Platelet Count Result 218 k/mm3 (150-375); Red Blood Count 3.46 M/mm3 (4.6-6.20); Red Cell Distribution Width 17.5 % (11.5-14.5); White Blood Count 13.7 K/mm3 (4.5-10.0)
[2023-10-13 23:50] LABS: Alanine Aminotransferase 17 U/L (6-50); Albumin Level 3.9 g/dL (3.5-5.1); Alkaline Phosphatase 90 U/L (38-126); Anion Gap 8 mmol/L (4-12); Aspartate Amino Transferase 18 U/L (17-59); Bilirubin,Total 0.4 mg/dL (0.2-1.3); Blood Urea Nitrogen 25 mg/dL (9-20); Calcium 8.6 mg/dL (8.4-10.2); Carbon Dioxide 22 mmol/L (22-30); Chloride 105 mmol/L (98-107); Estimated CRCL calculation 47 ml/min; Estimated Glomerular Filt Rate 44; Glucose 137 mg/dL (65-110); Potassium 4.2 mmol/L (3.4-5.0); Sodium 135 mmol/L (137-145)
[2023-10-13 23:50] LABS: INR 1.1; Prothrombin Time 14.5 Seconds (11.1-14.7)
[2023-10-13 23:51] LABS: Partial Thromboplastin Time 43.8 Seconds (22.3-36.8)
[2023-10-13 23:54] LABS: Appearance Urine Clear (Clear); Bacteria Urine None Seen /hpf; Bilirubin Urine Negative (Negative); Blood Urine 2+ (Negative); Budding Yeast Urine Present /hpf; Color Urine Yellow (Yellow); Glucose Urine UA 3+ mg/dL (Negative); Ketones Urine Negative (Negative); Leukocyte Esterase Ur 1+ LEU/UL (Negative); Need Manual Microscopic Reviewed; Nitrate Urine Negative (Negative); Protein Urine 1+ mg/dL (Negative); RBC Urine 21-50 /hpf (0-2); Specific Grav Ur 1.022 (1.001-1.035); Squamous Epithelial Cell Urine None Seen /hpf (Few); Urobilinogen Urine 0.2 mg/dL (<2.0); WBC Urine 51-100 /hpf (0-3); pH Urine 5.5 (5.0-9.0)
[2023-10-13 23:55] LABS: Add Urine Microscopic? YES
[2023-10-14] VITALS (11 sets, daily range): BP systolic 92–149; BP diastolic 59–76; PULSE 70–93; RESP 15–18; TEMP 36.2–36.5; O2SAT 97–100; BMI 24.4
[2023-10-14] MEDS: SODIUM CHLORIDE 0.9% IV 1,000 ML 999 ML IV CONT ×2 (00:01→01:53)
--- NOTE | 2023-10-14 00:42 | ED.GENADULT ---
HPI - General Adult General Chief complaint: Unspecified <Lisbeth Gonzales PA-C - Last Filed: 10/14/23 03:41> Stated complaint: low bp <Lisbeth Gonzales PA-C - Last Filed: 10/14/23 03:41> Time Seen by Provider: 10/13/23 23:43 <Lisbeth Gonzales PA-C - Last Filed: 10/14/23 03:41> History of Present Illness HPI narrative: 63-year-old male with history of CAD, s/p stenting and bypass, right toe amputation, CVA, insulin-dependent diabetes, hypertension, COPD, ILANA and PUD, BPH and epilepsy presents via ED from [facility] for low blood pressure. Facility staff states the patient was admitted there recovering from a foot ulcer. He was found to be hypotensive 70s over 30s. Upon arrival to our ER he is 91/57 after receiving 250 mL of normal saline EN route. He is A&O x1 upon my evaluation, is normally A&O x3. He denies any complaints. He arrives with a hard cast on his right lower extremity. Per chart review, the patient was admitted to our hospital on 09/17/2023 for a infected diabetic foot ulcer and osteomyelitis. Patient had a debridement of the foot wound on 09/18 and had a wound VAC placed. He became delirious after debridement and after many days in the hospital his delirium improved of around October 08. On October 05, the orthopedic surgeon performed a foot debridement with application of the graft. Patient was discharged home with p.o. Levaquin and doxycycline. Patient also arrived with a Osorio. Per chart review he had a cystoscopy and urethral dilation with plans to have a Osorio in for 7-10 days. Osorio changed by nursing staff upon arrival. Patient has received total of 1700 cc of normal saline upon my evaluation. <Lisbeth Gonzales PA-C - Last Filed: 10/14/23 03:41> Related Data Home medications: Home Medications Medication Instructions Recorded Confirmed aspirin 81 mg tablet,delayed 81 mg PO DAILY 09/05/21 09/17/23 release (Adult Low Dose Aspirin) atorvastatin 40 mg tablet (Lipitor) 40 mg PO DAILY 09/05/21 09/17/23 carvedilol 3.125 mg tablet (Coreg) 3.125 mg PO Q12H 09/05/21 09/17/23 empagliflozin 10 mg tablet 10 mg PO DAILY 09/05/21 09/17/23 (Jardiance) fenofibrate 160 mg tablet 160 mg PO DAILY 09/05/21 09/17/23 lisinopril 5 mg tablet (Zestril) 5 mg PO DAILY 09/05/21 09/17/23 insulin glargine 100 unit/mL (3 45 unit subcut HS 03/11/22 09/17/23 mL) subcutaneous pen (Lantus Solostar U-100 Insulin) <Lisbeth Gonzales PA-C - Last Filed: 10/14/23 03:41> Allergies/adverse reactions: Allergies Allergy/AdvReac Type Severity Reaction Status Date / Time metoclopramide AdvReac Mild Vomiting Verified 09/16/23 23:39 <Lisbeth Gonzales PA-C - Last Filed: 10/14/23 03:41> Review of Systems Review of Systems: ROS unobtainable: Yes unobtainable due to mental status <Lisbeth Gonzales PA-C - Last Filed: 10/14/23 03:41> [facility] Past Medical History Medical History: Medical History Cerebrovascular accident (06/2021) It sounds as though he had an ischemic stroke (symptoms include vertigo and visual changes) with hemorrhagic conversion. Chronic anemia Chronic obstructive pulmonary disease Coronary artery disease Status post bifurcation stents to the LAD and diagonal in 2006, stent to the LAD for in-stent restenoses in 2009, and CABG in April 2021 at [facility]. Diabetic foot ulcer Diabetic ulcer of right heel Encounter for postoperative care Gastroesophageal reflux disease Hypertension Kidney stones ILANA on CPAP Osteomyelitis of toe of right foot Peripheral arterial occlusive disease Personal history of noncompliance with medical treatment and regimen Seizure disorder Type 2 diabetes mellitus <Lisbeth Gonzales PA-C - Last Filed: 10/14/23 03:41> Surgical History Surgical History: Surgical History History of amputation of lef
[2023-10-14] MEDS: LORazepam INJ (*CRX) 2 MG/ML VIAL 1 MG IV PUSH ×2 (00:46→01:40)
[2023-10-14 01:09] LABS: Creatine Kinase 93 U/L (55-170)
[2023-10-14 01:13] LABS: CRP 2.3 mg/dL (<1.0)
[2023-10-14 01:22] LABS: Troponin I < 0.012 ng/mL (0.000-0.034)
[2023-10-14] MEDS: HALOPERIDOL LACTATE 5 MG/ML VIAL IM (01:38)
--- NOTE | 2023-10-14 01:49 | PC.NURSE ---
Pt has continued to try to get out of bed several times. Orders for ativan, haldol, and zyprexa have been obtained and administered. Blood cultures and EKG have not been completed because of pt's agitattion/non-compliance. Provider aware of all of this. Sitter is at bedside. Pt's vitals stable at this time.
[2023-10-14] MEDS: OLANZapine 5 MG, WATER, STERILE FOR INJECTION 2.1 ML IM (02:30)
--- NOTE | 2023-10-14 03:35 | ECG_ITS ---
SEE SCANNED COPY FOR CONFIRMED REPORT MTDD
[2023-10-14] MEDS: PIPERACILLN/TAZ 3.375GM/NS50ML 3.375 GM/50 ML BAG IVPB (03:53)
--- NOTE | 2023-10-14 04:43 | ADMGEN ---
This patient, Baldev Qiu, was admitted to Medical Room 260-01. Patient/family oriented to hospital policies and general routines including ID bracelet, bed and alarms, visiting hours, pain management, procedures, bathroom and other care routines, personal items, smoking policy, room service/diet, and visiting hours. Information on how to activate the Rapid Response Team has been discussed. Patient/Family are encouraged to report perceived risks to care and to ask questions if they do not understand what they are told or what they should do.
[2023-10-14] MEDS: VANCOMYCIN 2,000 MG/NS 500 ML 2,000 MG/500 ML BAG 250 MG IVPB (05:00)
[2023-10-14 08:05] LABS: Glucose Point of Care 121 mg/dl (65-105)
[2023-10-14] MEDS: FINASTERIDE 5 MG TABLET PO (09:07)
[2023-10-14] MEDS: FENOFIBRATE 160 MG TABLET PO (09:07)
[2023-10-14] MEDS: TAMSULOSIN HCL 0.4 MG CAPSULE PO (09:07)
[2023-10-14] MEDS: SENNA/DOCUSATE SODIUM TABLET 1 TAB BY MOUTH ×2 (09:07→18:28)
[2023-10-14] MEDS: polyethylene glycoL 3350 17 GM POWD.PACK PO (09:08)
[2023-10-14] MEDS: ATORVASTATIN 40 MG TABLET PO (09:08)
[2023-10-14] MEDS: carvediloL 3.125 MG TABLET PO ×2 (09:08→20:17)
[2023-10-14] MEDS: ASPIRIN 81 MG ENTERIC TABLET PO (09:08)
--- NOTE | 2023-10-14 11:05 | PM.CNOR ---
Assessment and Plan Assessment and plan (1) Abnormal urinalysis: Code(s): R82.90 - Unspecified abnormal findings in urine Status: Acute Assessment and Plan: discussed with hospitalist. Empirically start Rocephin. Follow cultures for results. Discontinue Levaquin as his labs show decreased renal function. We will plan to change oral antibiotics at the time of discharge if needed. (2) Right foot ulcer: Qualifiers: Non-pressure ulcer stage: unspecified non-pressure ulcer stage Qualified Code(s): L97.519 - Non-pressure chronic ulcer of other part of right foot with unspecified severity Code(s): L97.519 - Non-pressure chronic ulcer of other part of right foot with unspecified severity Status: Acute Assessment and Plan: Status post debridement and graft application. Dressing changed today. Graft in place and wound appears as expected. No evidence of infection. Plan to leave dressing in place and recast right lower extremity when appropriate. (3) Type 2 diabetes mellitus: Qualifiers: Diabetes mellitus custodial insulin use: with extermination supervisor use Diabetes mellitus complication status: with circulatory complication Diabetes mellitus complication detail: with other circulatory complications Qualified Code(s): E11.59 - Type 2 diabetes mellitus with other circulatory complications; Z79.4 - predatory animal exterminator (current) use of insulin Code(s): E11.9 - Type 2 diabetes mellitus without complications Status: Acute (4) Behavior disturbance: Code(s): F91.9 - Conduct disorder, unspecified Status: Acute Assessment and Plan: Patient at baseline from when discharged 3 days ago. Oriented to self. Minimally verbal. Continue to monitor and limit medication that alters mentation. History of Present Illness HPI Consult date: 10/14/23 Requesting physician: Lisbeth Gonzales PA-C Chief complaint: Osteomyelitis Narrative: 63-year-old gentleman known to the Orthopedic service for right diabetic foot ulcer. Discharged earlier this week to correction. Return to the ER last night with hypotension. Cast on the right lower extremity which had been placed at the last admission was removed in the emergency room. Graft over the ulcer Visualized. By history, patient originally admitted 4 weeks ago with right diabetic foot ulcer that did not involve the calcaneus or bone. He underwent 2 debridements of the foot and application of graft without evidence of bone involvement. Mental status changes noted prior to the 1st surgery and continued for approximately 1 week after the surgery. At the time of discharge 3 days ago he was oriented to self and intermittently oriented to place and time. Minimally verbal. Wound VAC was initially started after the debridement and graft application and was transition to a cast prior to discharge. Review of Systems Constitutional: Constitutional: Denies fever(s) Eyes: Eyes: Denies blurry vision ENT: Reports Normal hearing present Cardiovascular: Cardiovascular: Denies chest pain and Denies dyspnea Respiratory: Respiratory: Denies dyspnea and Denies wheezing Gastrointestinal: Gastrointestinal: Denies abdominal pain Genitourinary: Genitourinary: Denies urinary urgency Musculoskeletal: Musculoskeletal: Reports as per HPI and Denies numbness Integumentary/Breasts: Skin/Breast: Denies changing lesions and Denies sores Neurologic: Reports Normal hearing present, Denies behavioral changes, Denies confusion, Denies numbness and Denies convulsions Psychiatric: Psychiatric: Denies behavioral changes, Denies confusion and Denies hallucinations Endocrine: Endocrine: Denies heat intolerance Hematologic/Lymphatic: Hematologic/Lymphatic: Denies easy bleeding Allergic/Immunologic: Allergic/Immunologic: Denies wheezing PMFSH Past Medical History Medical History Cerebrovascular acc
--- NOTE | 2023-10-14 11:06 | PM.IMHP ---
H&P: HPI History of Present Illness Date/Time: 10/14/23 11:06 Chief Complaint: Hypotension Narrative: This is a 63-year-old male with history of CAD, s/p stenting and bypass, right toe amputation, CVA, insulin-dependent diabetes, hypertension, COPD, ILANA and PUD, BPH and epilepsy presents via ED from [facility] for low blood pressure.? Patient was recently hospitalized from 09/17/2023 fruit 10/11/2023 due to a diabetic foot ulcer.?Patient had a debridement of the foot wound on 09/18 and had a wound VAC placed.? He became delirious after debridement and after many days in the hospital his delirium improved of around October 08.? On October 05, the orthopedic surgeon performed a foot debridement with application of the graft.? Patient was discharged home with p.o. Levaquin and doxycycline.?I have discussed with with orthopedic surgeon and he stated that patient did not have osteomyelitis during his last hospitalization. Also according to orthopedic surgeon during his approximate 1 month of treating him patient is typically alert oriented x1-2. Patient was brought into the hospital on 10/14/2023 due to hypotension. He was found to be 70s over 30s at his facility and 91/57 in the ED. Patient was given a bolus of fluids and repeat blood pressure was improved. Patient had a hard cast on his right lower extremity and when this was removed there was a foul odor coming from a surgical site as well as some drainage. When I discussed this with the orthopedic surgeon he said that this is typical for graft placement and he does not believe that it is currently infected at this time. Vitals in the ED: BP 91/57, pulse 90, respirations 19, temp 98.3?, O2 saturation 99 Workup in the ED: white blood cell count 13.7, H&H 10.8/32.4, BUN and creatinine 25/1.6 (above patient's baseline), elevated CRP 2.3, troponin WNL, CK 93, UA 1+ protein, 3+ glucose, 2+ blood, 1+ LE, 21-50 rbc's, 51-100 wbc's, yeast present. head CT old infarcts in the brain, nonspecific white matter disease. Chest x-ray consistent with atelectasis versus pneumonia foot x-ray postoperative changes of the calcaneus. Most of this HPI was taken from previous medical records and discussion with orthopedic surgeon as the patient was not alert nor oriented upon my examination. [facility] Past Medical History Medical History Cerebrovascular accident (06/2021) It sounds as though he had an ischemic stroke (symptoms include vertigo and visual changes) with hemorrhagic conversion. Chronic anemia Chronic obstructive pulmonary disease Coronary artery disease Status post bifurcation stents to the LAD and diagonal in 2006, stent to the LAD for in-stent restenoses in 2009, and CABG in April 2021 at [facility]. Diabetic foot ulcer Diabetic ulcer of right heel Encounter for postoperative care Gastroesophageal reflux disease Hypertension Kidney stones ILANA on CPAP Osteomyelitis of toe of right foot Peripheral arterial occlusive disease Personal history of noncompliance with medical treatment and regimen Seizure disorder Type 2 diabetes mellitus Surgical History Surgical History History of amputation of left great toe History of amputation of right great toe 03/11/23 History of coronary artery bypass graft (04/2021) Done at [facility]. History of inguinal hernia repair times 2 History of myringoplasty History of percutaneous coronary intervention Bifurcation stents to LAD and diagonal in 2006. Stent to the LAD in 2009. (three stents) Family History Family History Mother Family history of diabetes mellitus in first degree relative Other Diabetes mellitus Hypertension Social History Social History Social History: The patient lives with his
[2023-10-14 12:20] LABS: Glucose Point of Care 133 mg/dl (65-105)
[2023-10-14] MEDS: carBAMazepine 200 MG TABLET PO ×2 (13:41→21:35)
[2023-10-14] MEDS: SODIUM CHLORIDE 0.9% IV 1,000 ML 100 ML IV CONT (13:44)
[2023-10-14] MEDS: ZOLPIDEM TARTRATE (*CRX) 5 MG TABLET PO (20:17)
[2023-10-14] MEDS: DOXYCYCLINE HYCLATE 100 MG TABLET PO (20:17)
[2023-10-14] MEDS: INSULIN GLARGINE (*BKC) 100 UNITS/ML 45 UNITS SUB-Q (20:17)
[2023-10-14 20:57] LABS: Glucose Point of Care 109 mg/dl (65-105)
[2023-10-15] MEDS: SODIUM CHLORIDE 0.9% IV 1,000 ML 100 ML IV CONT ×2 (03:08→20:20)
[2023-10-15 05:23] VITALS: BP 105/61; PULSE 81; RESP 18; TEMP 36.1; O2SAT 99
[2023-10-15 05:25] LABS: Basophils Absolute Auto 0.1 K/mm3 (0.0-0.1); Basophils Percent Auto 0.8 % (0.2-1.2); Eosinophils Absolute Auto 0.5 K/mm3 (0-0.3); Eosinophils Percent Auto 5.9 % (0-4.4); Hematocrit 33.5 % (42.0-52.0); Hemoglobin 10.7 g/dL (14.0-18.0); Immature Granulocyte Absolute 0.03 K/mm3 (0.00-0.031); Immature Granulocyte Percent A 0.4 % (0-0.5); Immature Platelet Fraction Pct 8.6 % (0.9-11.2); Lymphocytes Absolute Auto 1.98 K/mm3 (0.9-3.2); Lymphocytes Percent Auto 23.4 % (18.3-44.2); Mean Corpuscular HGB Conc 31.9 g/dl (32-36); Mean Corpuscular Hemoglobin 30.7 pg (26-34); Mean Corpuscular Volume 96.3 fl (80-100); Mean Platelet Volume 11.5 fl (7.4-10.4); Monocytes Percent Auto 11.6 % (2.6-8.5); Neutrophils Absolute Auto 4.9 K/mm3 (1.3-6.7); Neutrophils Percent Auto 57.9 % (45.5-73.1); Platelet Count Result 173 k/mm3 (150-375); Red Blood Count 3.48 M/mm3 (4.6-6.20); Red Cell Distribution Width 17.5 % (11.5-14.5); White Blood Count 8.5 K/mm3 (4.5-10.0)
[2023-10-15 05:38] LABS: Alanine Aminotransferase 15 U/L (6-50); Albumin Level 3.4 g/dL (3.5-5.1); Alkaline Phosphatase 71 U/L (38-126); Anion Gap 6 mmol/L (4-12); Aspartate Amino Transferase 18 U/L (17-59); Bilirubin,Total 0.4 mg/dL (0.2-1.3); Blood Urea Nitrogen 16 mg/dL (9-20); Calcium 8.4 mg/dL (8.4-10.2); Carbon Dioxide 18 mmol/L (22-30); Chloride 110 mmol/L (98-107); Estimated CRCL calculation 82 ml/min; Estimated Glomerular Filt Rate > 60; Glucose 156 mg/dL (65-110); Magnesium 1.9 mg/dL (1.6-2.3); Potassium 4.4 mmol/L (3.4-5.0); Sodium 134 mmol/L (137-145)
[2023-10-15 08:04] LABS: Glucose Point of Care 108 mg/dl (65-105)
[2023-10-15] MEDS: polyethylene glycoL 3350 17 GM POWD.PACK PO (09:32)
[2023-10-15] MEDS: carvediloL 3.125 MG TABLET PO ×2 (09:32→20:20)
[2023-10-15] MEDS: TAMSULOSIN HCL 0.4 MG CAPSULE PO (09:33)
[2023-10-15] MEDS: DOXYCYCLINE HYCLATE 100 MG TABLET PO ×2 (09:33→20:20)
[2023-10-15] MEDS: FINASTERIDE 5 MG TABLET PO (09:33)
[2023-10-15] MEDS: FENOFIBRATE 160 MG TABLET PO (09:33)
[2023-10-15] MEDS: ASPIRIN 81 MG ENTERIC TABLET PO (09:33)
[2023-10-15] MEDS: SENNA/DOCUSATE SODIUM TABLET 1 TAB BY MOUTH (09:33)
[2023-10-15] MEDS: ATORVASTATIN 40 MG TABLET PO (09:33)
[2023-10-15 12:17] LABS: Glucose Point of Care 112 mg/dl (65-105)
--- NOTE | 2023-10-15 12:30 | P.PNIM_ITS ---
Progress Note: A&P Assessment and Plan (1) Abnormal urinalysis: Code(s): R82.90 - Unspecified abnormal findings in urine Status: Acute Assessment and Plan: UA 1+ protein, 3+ glucose, 2+ blood, 1+ LE, 21-50 rbc's, 51-100 wbc's, yeast present. * Patient was originally started on vanc and Zosyn on 10/13, this was transition to Rocephin 10/13 * Urine culture pending * No previous urine cultures for comparison. * Adjust antibiotic therapy to culture results (2) Pneumonia: Qualifiers: Laterality: left Lung location: lower lobe of lung Pneumonia type: due to unspecified organism Qualified Code(s): J18.9 - Pneumonia, unspecified organ ism Code(s): J18.9 - Pneumonia, unspecified organism Status: Acute Assessment and Plan: Chest x-ray consistent with atelectasis versus pneumonia. * Obtain sputum culture if possible. * Blood cultures pending. * Patient was originally started on vanc and Zosyn on 10/13, this was transition to Rocephin and Doxycycline 10/13 * Albuterol p.r.n. (3) Acute kidney injury: Code(s): N17.9 - Acute kidney failure, unspecified Status: Acute Assessment and Plan: BUN and creatinine of 25/1.6. * Patient's urine does look infected this could be cause of his ISR[place]. * Patient could also be having some dehydration. * IV fluids initiated on 10/13 * Continue to trend BMP * 10/14 BUN and creatinine 16/0 point Resolved. (4) Type 2 diabetes mellitus: Qualifiers: Diabetes mellitus chcf insulin use: with intermodal customer service use Diabetes mellitus complication status: with circulatory complication Diabetes mellitus complication detail: with other circulatory complications Qualified Code(s): E11.59 - Type 2 diabetes mellitus with other circulatory complications; Z79.4 - termite treater helper (current) use of insulin Code(s): E11.9 - Type 2 diabetes mellitus without complications Status: Acute Assessment and Plan: Insulin Lispro sliding scale, Accu-checks qAc and HS and Hold oral hypoglycemics Initiate hypoglycemic precautions (5) Diabetic foot ulcer: Qualifiers: Diabetic foot ulcer location: heel Diabetes mellitus type: type 2 Laterality: right Non-pressure ulcer stage: with necrosis of muscle Qualified Code(s): E11.621 - Type 2 diabetes mellitus with foot ulcer; L97.413 - 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 Patient had a hard cast on his right lower extremity and when this was removed there was a foul odor coming from a surgical site as well as some drainage. When I discussed this with the orthopedic surgeon he said that this is typical for graft placement and he does not believe that it is currently infected at this time. * Orthopedic surgeon consulted and has agreed to follow. * Plan to re-cast patient's foot in the next couple days. * Due to [place] will stop Levaquin. Will add adjunct therapy to doxycycline at discharge. (6) ILANA on CPAP: Code(s): G47.33 - Obstructive sleep apnea (adult) (pediatric) Status: Chronic Assessment and Plan: Home CPAP settings (7) Hypertension: Qualifiers: Hypertension type: primary hypertension Qualified Code(s): I10 -
--- NOTE | 2023-10-15 12:30 | PM.IMPN ---
Progress Note: A&P Assessment and Plan (1) Abnormal urinalysis: Code(s): R82.90 - Unspecified abnormal findings in urine Status: Acute Assessment and Plan: UA 1+ protein, 3+ glucose, 2+ blood, 1+ LE, 21-50 rbc's, 51-100 wbc's, yeast present. Patient was originally started on vanc and Zosyn on 10/13, this was transition to Rocephin 10/13 Urine culture pending No previous urine cultures for comparison. Adjust antibiotic therapy to culture results (2) Pneumonia: Qualifiers: Laterality: left Lung location: lower lobe of lung Pneumonia type: due to unspecified organism Qualified Code(s): J18.9 - Pneumonia, unspecified organism Code(s): J18.9 - Pneumonia, unspecified organism Status: Acute Assessment and Plan: Chest x-ray consistent with atelectasis versus pneumonia. Obtain sputum culture if possible. Blood cultures pending. Patient was originally started on vanc and Zosyn on 10/13, this was transition to Rocephin and Doxycycline 10/13 Albuterol p.r.n. (3) Acute kidney injury: Code(s): N17.9 - Acute kidney failure, unspecified Status: Acute Assessment and Plan: BUN and creatinine of 25/1.6. Patient's urine does look infected this could be cause of his [place]. Patient could also be having some dehydration. IV fluids initiated on 10/13 Continue to trend BMP 10/14 BUN and creatinine 16/0 point Resolved. 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: with laborer marine terminal use Diabetes mellitus complication status: with circulatory complication Diabetes mellitus complication detail: with other circulatory complications Qualified Code(s): E11.59 - Type 2 diabetes mellitus with other circulatory complications; Z79.4 - prison (current) use of insulin Code(s): E11.9 - Type 2 diabetes mellitus without complications Status: Acute Assessment and Plan: Insulin Lispro sliding scale, Accu-checks qAc and HS and Hold oral hypoglycemics Initiate hypoglycemic precautions (5) Diabetic foot ulcer: Qualifiers: Diabetic foot ulcer location: heel Diabetes mellitus type: type 2 Laterality: right Non-pressure ulcer stage: with necrosis of muscle Qualified Code(s): E11.621 - Type 2 diabetes mellitus with foot ulcer; L97.413 - Non-pressure chronic ulcer of right heel and midfoot with necrosis of muscle Code(s): E11.621 - Type 2 diabetes mellitus with foot ulcer; L97.509 - Non-pressure chronic ulcer of other part of unspecified foot with unspecified severity Status: Acute Assessment and Plan: Foot x-ray showing postoperative changes. Patient had a hard cast on his right lower extremity and when this was removed there was a foul odor coming from a surgical site as well as some drainage. When I discussed this with the orthopedic surgeon he said that this is typical for graft placement and he does not believe that it is currently infected at this time. Orthopedic surgeon consulted and has agreed to follow. Plan to re-cast patient's foot in the next couple days. Due to [place] will stop Levaquin. Will add adjunct therapy to doxycycline at discharge. (6) ILANA on CPAP: Code(s): G47.33 - Obstructive sleep apnea (adult) (pediatric) Status: Chronic Assessment and Plan: Home CPAP settings (7) Hypertension: Qualifiers: Hypertension type: primary hypertension Qualified Code(s): I10 - Essential (primary) hypertension Code(s): I10 - Essential (primary) hypertension Status: Acute Assessment and Plan: Hold antihypertensive medications due to hypotension. Subjective Date/time seen: 10/15/23 12:30 Interval history: patient is alert oriented x3. His mental status is much improved. He denies any pain, coughing, dysuria, chest pain shortness a breath. We are waiting for cultures to
[2023-10-15] MEDS: carBAMazepine 200 MG TABLET PO ×2 (12:46→20:20)
[2023-10-15 14:00] VITALS: BP 119/67; PULSE 74; RESP 18; TEMP 35.9; O2SAT 100
[2023-10-15 17:09] LABS: Glucose Point of Care 136 mg/dl (65-105)
[2023-10-15 20:00] VITALS: PULSE 84; RESP 18; O2SAT 100
[2023-10-15 20:00] LABS: Glucose Point of Care 174 mg/dl (65-105)
[2023-10-15] MEDS: ZOLPIDEM TARTRATE (*CRX) 5 MG TABLET PO (20:20)
[2023-10-15] MEDS: hydrOXYzine pamoate 25 MG CAPSULE 50 MG PO (20:20)
[2023-10-15] MEDS: INSULIN GLARGINE (*BKC) 100 UNITS/ML 45 UNITS SUB-Q (20:21)
[2023-10-15 20:35] VITALS: BP 125/72; PULSE 84; RESP 18; TEMP 35.9; O2SAT 100
[2023-10-16] MEDS: ONDANSETRON INJ 4 MG/2 ML VIAL IV PUSH (00:28)
[2023-10-16 05:05] LABS: Glucose Point of Care 145 mg/dl (65-105)
[2023-10-16 05:28] VITALS: BP 130/77; PULSE 76; RESP 16; TEMP 36.1; O2SAT 98
[2023-10-16 05:32] VITALS: BP 130/77; PULSE 76; RESP 16; TEMP 36.1; O2SAT 98
[2023-10-16] MEDS: SODIUM CHLORIDE 0.9% IV 1,000 ML 100 ML IV CONT ×2 (05:41→08:04)
[2023-10-16 05:46] LABS: Hematocrit 32.7 % (42.0-52.0); Hemoglobin 10.6 g/dL (14.0-18.0); Mean Corpuscular HGB Conc 32.4 g/dl (32-36); Mean Corpuscular Hemoglobin 31.1 pg (26-34); Mean Corpuscular Volume 95.9 fl (80-100); Mean Platelet Volume 11.5 fl (7.4-10.4); Platelet Count Result 197 k/mm3 (150-375); Red Blood Count 3.41 M/mm3 (4.6-6.20); Red Cell Distribution Width 17.5 % (11.5-14.5)
[2023-10-16 06:14] LABS: Anion Gap 7 mmol/L (4-12); Blood Urea Nitrogen 18 mg/dL (9-20); Calcium 8.7 mg/dL (8.4-10.2); Carbon Dioxide 18 mmol/L (22-30); Chloride 108 mmol/L (98-107); Estimated CRCL calculation 82 ml/min; Estimated Glomerular Filt Rate > 60; Glucose 142 mg/dL (65-110); Potassium 4.3 mmol/L (3.4-5.0); Sodium 133 mmol/L (137-145)
[2023-10-16] MEDS: carBAMazepine 200 MG TABLET PO ×3 (07:34→21:30)
[2023-10-16] MEDS: SODIUM BICARBONATE TAB 650 MG TABLET PO ×2 (07:59→16:25)
[2023-10-16] MEDS: FENOFIBRATE 160 MG TABLET PO (07:59)
[2023-10-16] MEDS: FINASTERIDE 5 MG TABLET PO (07:59)
[2023-10-16] MEDS: DOXYCYCLINE HYCLATE 100 MG TABLET PO ×2 (07:59→21:30)
[2023-10-16] MEDS: TAMSULOSIN HCL 0.4 MG CAPSULE PO (07:59)
[2023-10-16] MEDS: ATORVASTATIN 40 MG TABLET PO (07:59)
[2023-10-16] MEDS: polyethylene glycoL 3350 17 GM POWD.PACK PO (07:59)
[2023-10-16] MEDS: ASPIRIN 81 MG ENTERIC TABLET PO (07:59)
[2023-10-16] MEDS: SENNA/DOCUSATE SODIUM TABLET 1 TAB BY MOUTH ×2 (07:59→16:25)
[2023-10-16] MEDS: carvediloL 3.125 MG TABLET PO ×2 (07:59→21:30)
[2023-10-16 08:44] LABS: Glucose Point of Care 128 mg/dl (65-105)
[2023-10-16 11:56] LABS: Glucose Point of Care 137 mg/dl (65-105)
--- NOTE | 2023-10-16 12:00 | P.PNIM_ITS ---
Progress Note: A&P Assessment and Plan (1) Abnormal urinalysis: Code(s): R82.90 - Unspecified abnormal findings in urine Status: Acute Assessment and Plan: UA 1+ protein, 3+ glucose, 2+ blood, 1+ LE, 21-50 rbc's, 51-100 wbc's, yeast present. * Patient was originally started on vanc and Zosyn on 10/13, this was transition to Rocephin 10/13 * Urine culture pending * No previous urine cultures for comparison. * Adjust antibiotic therapy to culture results (2) Pneumonia: Qualifiers: Laterality: left Lung location: lower lobe of lung Pneumonia type: due to unspecified organism Qualified Code(s): J18.9 - Pneumonia, unspecified organ ism Code(s): J18.9 - Pneumonia, unspecified organism Status: Acute Assessment and Plan: Chest x-ray consistent with atelectasis versus pneumonia. * Obtain sputum culture if possible. * Blood cultures pending. * Patient was originally started on vanc and Zosyn on 10/13, this was transition to Rocephin and Doxycycline 10/13 * Albuterol p.r.n. (3) Acute kidney injury: Code(s): N17.9 - Acute kidney failure, unspecified Status: Acute Assessment and Plan: BUN and creatinine of 25/1.6. * Patient's urine does look infected this could be cause of his [place]. * Patient could also be having some dehydration. * IV fluids initiated on 10/13, IV fluids discontinued on 10/15 * Continue to trend BMP * 10/14 BUN and creatinine 16/0 point Resolved. (4) Type 2 diabetes mellitus: Qualifiers: Diabetes mellitus terminal clerk insulin use: with terminal clerk use Diabetes mellitus complication status: with circulatory complication Diabetes mellitus complication detail: with other circulatory complications Qualified Code(s): E11.59 - Type 2 diabetes mellitus with other circulatory complications; Z79.4 - [facility] (current) use of insulin Code(s): E11.9 - Type 2 diabetes mellitus without complications Status: Acute Assessment and Plan: Insulin Lispro sliding scale, Accu-checks qAc and HS and Hold oral hypoglycemics Initiate hypoglycemic precautions (5) Diabetic foot ulcer: Qualifiers: Diabetic foot ulcer location: heel Diabetes mellitus type: type 2 Late rality: right Non-pressure ulcer stage: with necrosis of muscle Qualified Code(s): E11.621 - Type 2 diabetes mellitus with foot ulcer; L97.413 - 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 Patient had a hard cast on his right lower extremity and when this was removed there was a foul odor coming from a surgical site as well as some drainage. When I discussed this with the orthopedic surgeon he said that this is typical for graft placement and he does not believe that it is currently infected at this time. * Orthopedic surgeon consulted and has agreed to follow. * Due to [place] will stop Levaquin. Will add adjunct therapy to doxycycline at discharge. * Hopefully can re-cast foot tomorrow. (6) ILANA on CPAP: Code(s): G47.33 - Obstructive sleep apnea (adult) (pediatric) Status: Chronic Assessment and Plan: Home CPAP settings (7) Hypertension: Qualifiers: Hypertension type: primary hypertension Qualified Code
--- NOTE | 2023-10-16 12:00 | PM.IMPN ---
Progress Note: A&P Assessment and Plan (1) Abnormal urinalysis: Code(s): R82.90 - Unspecified abnormal findings in urine Status: Acute Assessment and Plan: UA 1+ protein, 3+ glucose, 2+ blood, 1+ LE, 21-50 rbc's, 51-100 wbc's, yeast present. Patient was originally started on vanc and Zosyn on 10/13, this was transition to Rocephin 10/13 Urine culture pending No previous urine cultures for comparison. Adjust antibiotic therapy to culture results (2) Pneumonia: Qualifiers: Laterality: left Lung location: lower lobe of lung Pneumonia type: due to unspecified organism Qualified Code(s): J18.9 - Pneumonia, unspecified organism Code(s): J18.9 - Pneumonia, unspecified organism Status: Acute Assessment and Plan: Chest x-ray consistent with atelectasis versus pneumonia. Obtain sputum culture if possible. Blood cultures pending. Patient was originally started on vanc and Zosyn on 10/13, this was transition to Rocephin and Doxycycline 10/13 Albuterol p.r.n. (3) Acute kidney injury: Code(s): N17.9 - Acute kidney failure, unspecified Status: Acute Assessment and Plan: BUN and creatinine of 25/1.6. Patient's urine does look infected this could be cause of his [place]. Patient could also be having some dehydration. IV fluids initiated on 10/13, IV fluids discontinued on 10/15 Continue to trend BMP 10/14 BUN and creatinine 16/0 point Resolved. (4) Type 2 diabetes mellitus: Qualifiers: Diabetes mellitus alf insulin use: with long term care social worker use Diabetes mellitus complication status: with circulatory complication Diabetes mellitus complication detail: with other circulatory complications Qualified Code(s): E11.59 - Type 2 diabetes mellitus with other circulatory complications; Z79.4 - termite control servicer (current) use of insulin Code(s): E11.9 - Type 2 diabetes mellitus without complications Status: Acute Assessment and Plan: Insulin Lispro sliding scale, Accu-checks qAc and HS and Hold oral hypoglycemics Initiate hypoglycemic precautions (5) Diabetic foot ulcer: Qualifiers: Diabetic foot ulcer location: heel Diabetes mellitus type: type 2 Laterality: right Non-pressure ulcer stage: with necrosis of muscle Qualified Code(s): E11.621 - Type 2 diabetes mellitus with foot ulcer; L97.413 - Non-pressure chronic ulcer of right heel and midfoot with necrosis of muscle Code(s): E11.621 - Type 2 diabetes mellitus with foot ulcer; L97.509 - Non-pressure chronic ulcer of other part of unspecified foot with unspecified severity Status: Acute Assessment and Plan: Foot x-ray showing postoperative changes. Patient had a hard cast on his right lower extremity and when this was removed there was a foul odor coming from a surgical site as well as some drainage. When I discussed this with the orthopedic surgeon he said that this is typical for graft placement and he does not believe that it is currently infected at this time. Orthopedic surgeon consulted and has agreed to follow. Due to [place] will stop Levaquin. Will add adjunct therapy to doxycycline at discharge. Hopefully can re-cast foot tomorrow. (6) ILANA on CPAP: Code(s): G47.33 - Obstructive sleep apnea (adult) (pediatric) Status: Chronic Assessment and Plan: Home CPAP settings (7) Hypertension: Qualifiers: Hypertension type: primary hypertension Qualified Code(s): I10 - Essential (primary) hypertension Code(s): I10 - Essential (primary) hypertension Status: Acute Assessment and Plan: Hold antihypertensive medications due to hypotension. Subjective Date/time seen: 10/16/23 12:00 Interval history: patient's urine and blood cultures still not returned. He is alert and oriented x3. He is doing much better and denies any pain. He states that he is re
[2023-10-16 13:49] VITALS: BP 117/76; PULSE 78; RESP 18; TEMP 36.4; O2SAT 100
[2023-10-16 17:14] LABS: Glucose Point of Care 153 mg/dl (65-105)
[2023-10-16] MEDS: ACETAMINOPHEN 325 MG TABLET 650 MG PO (18:51)
[2023-10-16 19:50] LABS: Glucose Point of Care 183 mg/dl (65-105)
[2023-10-16 20:02] VITALS: BP 114/68; PULSE 84; RESP 16; TEMP 35.9; O2SAT 98
[2023-10-16 21:30] VITALS: PULSE 84
[2023-10-16] MEDS: ZOLPIDEM TARTRATE (*CRX) 5 MG TABLET PO (21:30)
[2023-10-16] MEDS: INSULIN GLARGINE (*BKC) 100 UNITS/ML 45 UNITS SUB-Q (21:31)
[2023-10-17 05:34] VITALS: BP 106/65; PULSE 74; RESP 18; TEMP 36; O2SAT 97
[2023-10-17 05:45] LABS: Hemoglobin 10.7 g/dL (14.0-18.0); Mean Corpuscular HGB Conc 32.4 g/dl (32-36); Mean Corpuscular Hemoglobin 30.8 pg (26-34); Mean Corpuscular Volume 95.1 fl (80-100); Platelet Count Result 204 k/mm3 (150-375); Red Blood Count 3.47 M/mm3 (4.6-6.20); Red Cell Distribution Width 17.5 % (11.5-14.5)
[2023-10-17 05:55] LABS: Anion Gap 6 mmol/L (4-12); Blood Urea Nitrogen 17 mg/dL (9-20); Calcium 8.9 mg/dL (8.4-10.2); Carbon Dioxide 19 mmol/L (22-30); Chloride 108 mmol/L (98-107); Estimated CRCL calculation 82 ml/min; Estimated Glomerular Filt Rate > 60; Glucose 117 mg/dL (65-110); Potassium 4.3 mmol/L (3.4-5.0); Sodium 133 mmol/L (137-145)
[2023-10-17] MEDS: carBAMazepine 200 MG TABLET PO ×2 (06:00→13:11)
[2023-10-17 08:10] LABS: Glucose Point of Care 85 mg/dl (65-105)
[2023-10-17] MEDS: SODIUM BICARBONATE TAB 650 MG TABLET PO ×2 (08:53→16:42)
[2023-10-17] MEDS: SENNA/DOCUSATE SODIUM TABLET 1 TAB BY MOUTH (08:53)
[2023-10-17] MEDS: ASPIRIN 81 MG ENTERIC TABLET PO (08:53)
[2023-10-17] MEDS: carvediloL 3.125 MG TABLET PO (08:53)
[2023-10-17] MEDS: TAMSULOSIN HCL 0.4 MG CAPSULE PO (08:53)
[2023-10-17] MEDS: DOXYCYCLINE HYCLATE 100 MG TABLET PO (08:53)
[2023-10-17] MEDS: FENOFIBRATE 160 MG TABLET PO (08:53)
[2023-10-17] MEDS: FINASTERIDE 5 MG TABLET PO (08:53)
[2023-10-17] MEDS: ATORVASTATIN 40 MG TABLET PO (08:54)
--- NOTE | 2023-10-17 09:08 | PM.PNORT ---
Progress Note: A&P Assessment and Plan (1) Diabetic foot ulcer: Qualifiers: Diabetic foot ulcer location: heel Diabetes mellitus type: type 2 Laterality: right Non-pressure ulcer stage: with necrosis of muscle Qualified Code(s): E11.621 - Type 2 diabetes mellitus with foot ulcer; L97.413 - Non-pressure chronic ulcer of right heel and midfoot with necrosis of muscle Code(s): E11.621 - Type 2 diabetes mellitus with foot ulcer; L97.509 - Non-pressure chronic ulcer of other part of unspecified foot with unspecified severity Status: Acute (2) Abnormal urinalysis: Code(s): R82.90 - Unspecified abnormal findings in urine Status: Acute Assessment and Plan: Discussed with hospitalist. Empirically start Rocephin. Follow cultures for results. Discontinue Levaquin as his labs show decreased renal function. We will plan to change oral antibiotics at the time of discharge, likely Keflex (3) Right foot ulcer: Qualifiers: Non-pressure ulcer stage: unspecified non-pressure ulcer stage Qualified Code(s): L97.519 - Non-pressure chronic ulcer of other part of right foot with unspecified severity Code(s): L97.519 - Non-pressure chronic ulcer of other part of right foot with unspecified severity Status: Acute Assessment and Plan: Status post debridement and graft application. Dressing changed today. Graft in place and wound appears as expected. No evidence of infection. Plan to leave dressing in place and recast right lower extremity prior to discharge. (4) Type 2 diabetes mellitus: Qualifiers: Diabetes mellitus termite technician insulin use: with termite technician use Diabetes mellitus complication status: with circulatory complication Diabetes mellitus complication detail: with other circulatory complications Qualified Code(s): E11.59 - Type 2 diabetes mellitus with other circulatory complications; Z79.4 - petroleum terminal plant operator (current) use of insulin Code(s): E11.9 - Type 2 diabetes mellitus without complications Status: Acute (5) Behavior disturbance: Code(s): F91.9 - Conduct disorder, unspecified Status: Acute Assessment and Plan: Patient at baseline from when discharged previously. Oriented to self, place today. Continue to monitor and limit medication that alters mentation. Subjective Subjective Date/Time Seen: 10/17/23 09:08 Interval history: Patient alert and oriented to person and place today. Confused to time and situation. Review of Systems Review of Systems: All systems reviewed & are unremarkable except as noted in HPI and below Exam Const: General: lethargic and average body habitus; No combative or diaphoretic Orientation/consciousness: oriented to person, No oriented to place and No oriented to time Limitations: altered mental status HENMT: Head: normal to inspection, normocephalic and atraumatic Ears: hearing grossly normal bilaterally Neck: Neck: normal visual inspection, supple and other ( Nontender) Resp: Effort & Inspection: normal respiratory effort Skin: Wounds: wounds noted (RIGHT Medial Heel Wound ) Extrem: Other: Right heel ulcer Dressing in place. dressing changed. Graft in place. Minimal serous drainage. No purulence. Odor consistent with the type of graft in place. No erythema. Previous hallux amputation. Foot/ leg without erythema, mild swelling. Objective Data Vital Signs Vital Signs: Vital Signs - 24 hr 10/16/23 13:49 10/16/23 20:02 10/16/23 21:30 Temperature 36.4 C L 35.9 C L Pulse Rate 78 84 84 Respiratory Rate 18 16 Blood Pressure 117/76 114/68 Pulse Oximetry 100 98 Oxygen Delivery 10/16/23 21:30 10/17/23 05:34 Temperature 36.0 C L Pulse Rate 74 Respiratory Rate 18 Blood Pressure 106/65 Pulse Oximetry 97 Oxygen Delivery Room Air Intake/Output Intake/Output: Intake & Output 10/14/23 10/15/23 10/16/23 10/17/23 23:59 23:59 23:59 23:59 Intake
[2023-10-17] MEDS: ACETAMINOPHEN 325 MG TABLET 650 MG PO (11:41)
[2023-10-17 11:48] LABS: Glucose Point of Care 146 mg/dl (65-105)
[2023-10-17] MEDS: hydrOXYzine pamoate 25 MG CAPSULE 50 MG PO (13:12)
--- NOTE | 2023-10-17 13:49 | PM.DS ---
DS: Admitting Diagnosis Discharge Date 10/17/23 Admitting Diagnosis UTI, PNA DS: Discharge Diagnosis Discharge Diagnosis (1) Abnormal urinalysis: Code(s): R82.90 - Unspecified abnormal findings in urine Status: Acute (2) Pneumonia: Qualifiers: Laterality: left Lung location: lower lobe of lung Pneumonia type: due to unspecified organism Qualified Code(s): J18.9 - Pneumonia, unspecified organism Code(s): J18.9 - Pneumonia, unspecified organism Status: Acute (3) Acute kidney injury: Code(s): N17.9 - Acute kidney failure, unspecified Status: Acute (4) Type 2 diabetes mellitus: Qualifiers: Diabetes mellitus complication detail: with other circulatory complications Diabetes mellitus complication status: with circulatory complication Diabetes mellitus terminal operations supervisor insulin use: with usp use Qualified Code(s): E11.59 - Type 2 diabetes mellitus with other circulatory complications; Z79.4 - terminal operations supervisor (current) use of insulin Code(s): E11.9 - Type 2 diabetes mellitus without complications Status: Acute (5) Diabetic foot ulcer: Qualifiers: Diabetes mellitus type: type 2 Diabetic foot ulcer location: heel Laterality: right Non-pressure ulcer stage: with necrosis of muscle Qualified Code(s): E11.621 - Type 2 diabetes mellitus with foot ulcer; L97.413 - Non-pressure chronic ulcer of right heel and midfoot with necrosis of muscle Code(s): E11.621 - Type 2 diabetes mellitus with foot ulcer; L97.509 - Non-pressure chronic ulcer of other part of unspecified foot with unspecified severity Status: Acute (6) ILANA on CPAP: Code(s): G47.33 - Obstructive sleep apnea (adult) (pediatric) Status: Chronic (7) Hypertension: Qualifiers: Hypertension type: primary hypertension Qualified Code(s): I10 - Essential (primary) hypertension Code(s): I10 - Essential (primary) hypertension Status: Acute DS: Summary Hospital Course Hospital Course: This is a 63-year-old male with history of CAD, s/p stenting and bypass, right toe amputation, CVA, insulin-dependent diabetes, hypertension, COPD, ILANA and PUD, BPH and epilepsy presents via ED from [facility] for low blood pressure.? Patient was recently hospitalized from 09/17/2023 fruit 10/11/2023 due to a diabetic foot ulcer.?Patient had a debridement of the foot wound on 09/18 and had a wound VAC placed.? He became delirious after debridement and after many days in the hospital his delirium improved of around October 08.? On October 05, the orthopedic surgeon performed a foot debridement with application of the graft.? Patient was discharged home with p.o. Levaquin and doxycycline.?I have discussed with with orthopedic surgeon and he stated that patient did not have osteomyelitis during his last hospitalization.? Also according to orthopedic surgeon during his approximate 1 month of treating him patient is typically alert oriented x1-2.? Patient was brought into the hospital on 10/14/2023 due to hypotension.? He was found to be 70s over 30s at his facility and 91/57 in the ED.? Patient was given a bolus of fluids and repeat blood pressure was improved.? Patient had a hard cast on his right lower extremity and when this was removed there was a foul odor coming from a surgical site as well as some drainage.? When I discussed this with the orthopedic surgeon he said that this is typical for graft placement and he does not believe that it is currently infected at this time. Workup in the ED: white blood cell count 13.7, H&H 10.8/32.4, BUN and creatinine 25/1.6 (above patient's baseline), elevated CRP 2.3, troponin WNL, CK 93, UA 1+ protein, 3+ glucose, 2+ blood, 1+ LE, 21-50 rbc's, 51-100 wbc's, yeast present. head CT old infarcts in the brain, nonspecific white matter disease.? Chest x-ray consistent with atelectasis versus pneumonia foot x-ray postoperative changes of the calcaneus.
[2023-10-17 15:55] LABS: SARS-CoV-2 RNA PCR Negative (Negative)
[2023-10-17 16:30] VITALS: BP 123/75; PULSE 85; RESP 16; TEMP 37.1; O2SAT 99
== END 2023-10-17 17:45 ==
LOC: ANHED 10-14 03:27 → ANH2MED 10-14 05:56
PROVIDERS: Emergency Medicine; Internal Medicine Critical Care Medicine; Admitting Provider Internal Medicine; Emergency Provider Physician Assistant; PCP Family Medicine; Visit Provider Internal Medicine
DX: J18.9 Pneumonia, unspecified organism (principal); N17.9 Acute kidney failure, unspecified; E11.621 Type 2 diabetes mellitus with foot ulcer; L97.419 Non-pressure chronic ulcer of right heel and midfoot with unspecified severity; L97.519 Non-pressure chronic ulcer of other part of right foot with unspecified severity; R82.90 Unspecified abnormal findings in urine; F91.9 Conduct disorder, unspecified; I25.10 Atherosclerotic heart disease of native coronary artery without angina pectoris; E11.51 Type 2 diabetes mellitus with diabetic peripheral angiopathy without gangrene; I10 Essential (primary) hypertension; J44.9 Chronic obstructive pulmonary disease, unspecified; G47.33 Obstructive sleep apnea (adult) (pediatric); D64.9 Anemia, unspecified; K21.9 Gastro-esophageal reflux disease without esophagitis; N40.0 Benign prostatic hyperplasia without lower urinary tract symptoms; G40.909 Epilepsy, unspecified, not intractable, without status epilepticus; Z11.52 Encounter for screening for COVID-19; Z95.5 Presence of coronary angioplasty implant and graft; Z95.1 Presence of aortocoronary bypass graft; Z89.421 Acquired absence of other right toe(s); Z86.73 Personal history of transient ischemic attack (TIA), and cerebral infarction without residual deficits; Z79.82 Long term (current) use of aspirin; Z79.84 Long term (current) use of oral hypoglycemic drugs; Z79.4 Long term (current) use of insulin
CPT/HCPCS: 36415; 70450; 71046; 73620; 80048; 80053; 81001; 82550; 82948; 83605; 83735; 84484; 85025; 85027; 85055; 85610; 85730; 86140; 87040; 87086; 87088; 87106; 87635; 93005; 96361; 96365; 96367; 96372; 96374; 96375; 99285; A9270; G0378; G0379; J0696; J1630; J1815; J2060; J2359; J2405; J2543; J3370; J7030

== ENCOUNTER 2023-10-20 01:28 | Emergency (ER) | payer BC, SELFPAY ==
--- NOTE | ~2023-10-20 | CT_ITS ---
Noncontrast CT scan of the cervical spine Technique: Multiple contiguous axial [address] images of the cervical spine were obtained and rec onstructed in 2D sagittal and coronal planes on the acquisition scanner. Dose reduction technique was used on this scan by utilizing automated exposure control, adjustment of the mA and/or kV according to patient size. The dose-length product (DLP) was 509.25 mGy-cm. Clinical History: Pain COMPARISON: 09/23/2021 Findings: No fractures or dislocations. Osseous alignment is unchanged. There is partial fusion acro ss the C2-C3 disc space. There is fusion of the bilateral C2-C3 facet joints. There is mild to modera te facet arthropathy bilaterally at C3-C4 and C4-C5. There is left neural foraminal narrowing at C3-C 4. No prevertebral soft tissue swelling. There is moderate emphysema in the lung apices. Impression: No fracture or subluxation of the cervical spine. Reviewed, dictated and finalized at [facility]. Impression: No fracture or subluxation of the cervical spine.
--- NOTE | ~2023-10-20 | CT_ITS ---
Non-contrast Head CT History: Status post fall COMPARISON: 10/13/2023 Technique: Axial non-contrast imaging of the brain was performed. Dose reduction technique was used on this scan by utilizing automated exposure control and iterative reconstruction technique. The dose -length product (DLP) was 681.00 mGy-cm. Findings: There is no evidence of intracranial hemorrhage, mass lesion, or acute infarct. Stable rig ht occipital lobe encephalomalacia. The ventricles and subarachnoid spaces are normal in size. The calvarium appears normal. The visualized paranasal sinuses and mastoid air cells are clear. Impression: No acute abnormality seen. Stable right occipital lobe encephalomalacia. Reviewed, dictated and finalized at location . Impression: No acute abnormality seen. Stable right occipital lobe encephalomalacia.
[2023-10-20 01:35] VITALS: BP 98/57; PULSE 88; RESP 15; TEMP 36.6; O2SAT 100
--- NOTE | 2023-10-20 02:44 | ED.GENADULT ---
HPI - General Adult General Chief complaint: Fall Stated complaint: fall, hit head Time Seen by Provider: 10/20/23 01:33 History of Present Illness HPI narrative: This is a 63-year-old male with history dementia from a memory care center presenting after a ground level fall. Patient says he fell out of bed and struck his head on the ground. He then got up and put himself back into bed. He has no other complaints at this time other than groin pain. When I asked where he points at the Osorio sticker attached to his thigh. Related Data Home Medications Medication Instructions Recorded Confirmed aspirin 81 mg tablet,delayed 81 mg PO DAILY 09/05/21 10/14/23 release (Adult Low Dose Aspirin) atorvastatin 40 mg tablet (Lipitor) 40 mg PO DAILY 09/05/21 10/14/23 carvedilol 3.125 mg tablet (Coreg) 3.125 mg PO Q12H 09/05/21 10/14/23 empagliflozin 10 mg tablet 10 mg PO DAILY 09/05/21 10/14/23 (Jardiance) fenofibrate 160 mg tablet 160 mg PO DAILY 09/05/21 10/14/23 lisinopril 5 mg tablet (Zestril) 5 mg PO DAILY 09/05/21 10/14/23 insulin glargine 100 unit/mL (3 45 unit subcut HS 03/11/22 10/14/23 mL) subcutaneous pen (Lantus Solostar U-100 Insulin) bisacodyl 10 mg rectal suppository 10 mg RECTAL DAILY PRN Constipation 10/14/23 10/14/23 hydroxyzine pamoate 50 mg capsule 50 mg PO Q6H PRN Anxiety 10/14/23 10/14/23 insulin lispro 100 unit/mL 0 sliding scale dose subcut QID 10/14/23 10/14/23 subcutaneous pen (Humalog KwikPen PRN Hyperglycemia (U-100) Insulin) magnesium citrate 300 ml PO DAILY PRN Constipation 10/14/23 10/14/23 magnesium hydroxide 400 mg/5 mL 30 ml PO HS PRN Constipation 10/14/23 10/14/23 oral suspension (Milk of Magnesia) Allergies Allergy/AdvReac Type Severity Reaction Status Date / Time metoclopramide AdvReac Mild Vomiting Verified 09/16/23 23:39 [facility] Past Medical History Medical History Cerebrovascular accident (06/2021) It sounds as though he had an ischemic stroke (symptoms include vertigo and visual changes) with hemorrhagic conversion. Chronic anemia Chronic obstructive pulmonary disease Coronary artery disease Status post bifurcation stents to the LAD and diagonal in 2006, stent to the LAD for in-stent restenoses in 2009, and CABG in April [address] [facility]. Diabetic foot ulcer Diabetic ulcer of right heel Encounter for postoperative care Gastroesophageal reflux disease Hypertension Kidney stones ILANA on CPAP Osteomyelitis of toe of right foot Peripheral arterial occlusive disease Personal history of noncompliance with medical treatment and regimen Seizure disorder Type 2 diabetes mellitus Surgical History Surgical History History of amputation of left great toe History of amputation of right great toe 03/11/23 History of coronary artery bypass graft (04/2021) Done at [facility]. History of inguinal hernia repair times 2 History of myringoplasty History of percutaneous coronary intervention Bifurcation stents to LAD and diagonal in 2006. Stent to the LAD in 2009. (three stents) Family History Family History Mother Family history of diabetes mellitus in first degree relative Other Diabetes mellitus Hypertension Social History Social History Social History: The patient lives with his and 2 sons in [place]. His sons help him out. 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 He smoked about a pack a day for nearly 45 years and he quit at the time of his bypass in April 2021. He was a heavier drinker in his younger years. No illicit substance use. Surrogate medical decision maker: Shahrzad Qiu, . Code status: Full code. Smoking packs per day: 1.5 Smoking cigarettes per day: 30.0 Years smoked: 30 Smokin
== END 2023-10-20 03:33 ==
PROVIDERS: Emergency Provider Emergency Medicine; PCP Family Medicine
DX: S09.90XA Unspecified injury of head, initial encounter (principal); F03.90 Unspecified dementia, unspecified severity, without behavioral disturbance, psychotic disturbance, mood disturbance, and anxiety; J44.9 Chronic obstructive pulmonary disease, unspecified; I25.10 Atherosclerotic heart disease of native coronary artery without angina pectoris; E11.51 Type 2 diabetes mellitus with diabetic peripheral angiopathy without gangrene; I73.9 Peripheral vascular disease, unspecified; G40.909 Epilepsy, unspecified, not intractable, without status epilepticus; G47.33 Obstructive sleep apnea (adult) (pediatric); D64.9 Anemia, unspecified; K21.9 Gastro-esophageal reflux disease without esophagitis; Z95.5 Presence of coronary angioplasty implant and graft; Z95.1 Presence of aortocoronary bypass graft; Z86.73 Personal history of transient ischemic attack (TIA), and cerebral infarction without residual deficits; Z87.442 Personal history of urinary calculi; Z87.891 Personal history of nicotine dependence; Z89.412 Acquired absence of left great toe; Z89.411 Acquired absence of right great toe; Z79.4 Long term (current) use of insulin; Z79.82 Long term (current) use of aspirin; W06.XXXA Fall from bed, initial encounter
CPT/HCPCS: 70450; 72125; 99284

== ENCOUNTER 2023-11-06 15:02 | Emergency (ER) | payer BC, SELFPAY ==
--- NOTE | ~2023-11-06 | XR_ITS ---
EXAMINATION: XR chest 1V portable Exam Date/Time: 11/06/2023 15:55 CDT HISTORY: shortness of breath Comparison: 10/13/2023. RESULT: Lines, tubes, and devices: Intact sternotomy wires. Mediastinal surgical clips. Lungs and pleura: Moderate diffuse reticular opacities. Subsegmental left basilar airspace disease. Cardiomediastinal silhouette: Stable. Other: No acute osseous or upper abdominal finding. IMPRESSION: Subsegmental right basilar atelectasis/consolidation. Moderate interstitial edema. Reviewed, dictated and finalized at location K. IMPRESSION: Subsegmental right basilar atelectasis/consolidation. Moderate interstitial dusty cordoba
--- NOTE | ~2023-11-06 | CT_ITS ---
EXAMINATION: CT brain wo con DATE: 11/06/2023 16:13 INDICATION: headache . TECHNIQUE: Computed tomography (CT) of the head was performed without intravenous contrast. The mA wa s adjusted according to patient size. Iterative reconstruction technique was employed. The dose-lengt h product was 605.33 mGy-cm. COMPARISON: 10/20/2023. FINDINGS: No acute intracranial hemorrhage or extra-axial fluid collection. No hydrocephalus, mass, or herniation. No acute ischemic infarct. Unremarkable dural venous sinus attenuation. No acute osseous abnormality. The aerated spaces are clear. Mild atrophy and chronic white matter change. Atherosclerotic intracranial calcification. Focal bilat eral basal ganglia and right thalamic lacunar infarcts. Right occipital lobe encephalomalacia. Old ri ght cerebellar infarct. IMPRESSION: No acute intracranial process. Reviewed, dictated and finalized at location K.
[2023-11-06 15:11] VITALS: BP 127/73; PULSE 92; RESP 18; O2SAT 100
--- NOTE | 2023-11-06 15:42 | ECG_ITS ---
SEE SCANNED COPY FOR CONFIRMED REPORT. MTDD
[2023-11-06] MEDS: ACETAMINOPHEN 500 MG TABLET 1000 MG PO (15:53)
[2023-11-06 15:59] LABS: Basophils Absolute Auto 0.1 K/mm3 (0.0-0.1); Basophils Percent Auto 0.2 % (0.2-1.2); Eosinophils Absolute Auto 0.3 K/mm3 (0-0.3); Eosinophils Percent Auto 1.4 % (0-4.4); Hematocrit 28.9 % (42.0-52.0); Hemoglobin 9.6 g/dL (14.0-18.0); Immature Granulocyte Absolute 0.17 K/mm3 (0.00-0.031); Immature Granulocyte Percent A 0.8 % (0-0.5); Lymphocytes Absolute Auto 1.79 K/mm3 (0.9-3.2); Lymphocytes Percent Auto 8.6 % (18.3-44.2); Mean Corpuscular HGB Conc 33.2 g/dl (32-36); Mean Corpuscular Hemoglobin 31.6 pg (26-34); Mean Corpuscular Volume 95.1 fl (80-100); Mean Platelet Volume 10.2 fl (7.4-10.4); Monocytes Absolute Auto 1.6 K/mm3 (0.1-0.6); Monocytes Percent Auto 7.7 % (2.6-8.5); Neutrophils Absolute Auto 16.9 K/mm3 (1.3-6.7); Neutrophils Percent Auto 81.3 % (45.5-73.1); Platelet Count Result 319 k/mm3 (150-375); Red Blood Count 3.04 M/mm3 (4.6-6.20); Red Cell Distribution Width 17.6 % (11.5-14.5); White Blood Count 20.8 K/mm3 (4.5-10.0)
[2023-11-06 16:12] LABS: Ethanol < 10 mg/dL (<10)
[2023-11-06 16:13] LABS: Alanine Aminotransferase 13 U/L (6-50); Albumin Level 3.9 g/dL (3.5-5.1); Alkaline Phosphatase 63 U/L (38-126); Anion Gap 8 mmol/L (4-12); Aspartate Amino Transferase 17 U/L (17-59); Bilirubin,Total 0.5 mg/dL (0.2-1.3); Blood Urea Nitrogen 17 mg/dL (9-20); Calcium 8.8 mg/dL (8.4-10.2); Carbon Dioxide 21 mmol/L (22-30); Chloride 108 mmol/L (98-107); Estimated CRCL calculation 74 ml/min; Estimated Glomerular Filt Rate > 60; Glucose 118 mg/dL (65-110); Potassium 3.8 mmol/L (3.4-5.0); Sodium 137 mmol/L (137-145)
--- NOTE | 2023-11-06 16:19 | ED.GENADULT ---
HPI - General Adult General Chief complaint: Headache Stated complaint: headache Time Seen by Provider: 11/06/23 15:29 History of Present Illness HPI narrative: Baldev Qiu is a 63 y/o male with PMHx of CVA/ dementia / DM / HLD/ BPH/ who is brought in today by his son. Son states that pt does have some confusion off and on but seems to be getting better since the stroke [id number]- He was d/c from a rehab facility this past Tuesday after having an operation to his right foot wound to home and son states things have been going well but he states that the pt woke up this morning at 0400 with hallucinations / complained of a headache and he feels that his speech might be a little more slurred Previous charts - states pt is oriented X1 On exam here he is alert and oriented to self/ place/ year/ situation - he states he does have a headache but otherwise feels well - no hallucinations at this time but son states its been off and on today and he had hallucinations about a year ago that lasted a long time but went away. Denies chest pain/ SOB/ fever/chills Related Data Home Medications Medication Instructions Recorded Confirmed aspirin 81 mg tablet,delayed 81 mg PO DAILY 09/05/21 10/25/23 release (Adult Low Dose Aspirin) atorvastatin 40 mg tablet (Lipitor) 40 mg PO DAILY 09/05/21 10/25/23 carvedilol 3.125 mg tablet (Coreg) 3.125 mg PO Q12H 09/05/21 10/25/23 empagliflozin 10 mg tablet 10 mg PO DAILY 09/05/21 10/25/23 (Jardiance) fenofibrate 160 mg tablet 160 mg PO DAILY 09/05/21 10/25/23 lisinopril 5 mg tablet (Zestril) 5 mg PO DAILY 09/05/21 10/25/23 insulin glargine 100 unit/mL (3 45 unit subcut HS 03/11/22 10/25/23 mL) subcutaneous pen (Lantus Solostar U-100 Insulin) bisacodyl 10 mg rectal suppository 10 mg RECTAL DAILY PRN Constipation 10/14/23 10/25/23 hydroxyzine pamoate 50 mg capsule 50 mg PO Q6H PRN Anxiety 10/14/23 10/25/23 insulin lispro 100 unit/mL 0 sliding scale dose subcut QID 10/14/23 10/25/23 subcutaneous pen (Humalog KwikPen PRN Hyperglycemia (U-100) Insulin) magnesium citrate 300 ml PO DAILY PRN Constipation 10/14/23 10/25/23 magnesium hydroxide 400 mg/5 mL 30 ml PO HS PRN Constipation 10/14/23 10/25/23 oral suspension (Milk of Magnesia) zolpidem 5 mg tablet 5 mg PO HS Insomnia 10/25/23 10/25/23 ergocalciferol (vitamin D2) 1,250 1,250 mcg PO WEEKLY 11/01/23 11/01/23 mcg (50,000 unit) capsule Allergies Allergy/AdvReac Type Severity Reaction Status Date / Time metoclopramide AdvReac Mild Vomiting Verified 11/06/23 15:25 Review of Systems Review of Systems: CONSTITUTIONAL: Denies fever, chills, or sweats. EYES: Denies visual changes, redness, or discharge. ENT: Denies rhinorrhea, congestion, sore throat, or otalgia. CARDIOVASCULAR: Denies chest pain, palpitations, or edema. RESPIRATORY: Denies cough or dyspnea. GASTROINTESTINAL: Denies abdominal pain, nausea, vomiting, or diarrhea. GENITOURINARY: Denies dysuria or hematuria. SKIN: Denies rash or itching. MUSCULOSKELETAL: Denies back pain, joint pain, or myalgia. NEUROLOGIC: Reports headache that started today PSYCHIATRIC: Denies anxiety or depression. [facility] Past Medical History Medical History Cerebrovascular accident (06/2021) It sounds as though he had an ischemic stroke (symptoms include vertigo and visual changes) with hemorrhagic conversion. Chronic anemia Chronic obstructive pulmonary disease Coronary artery disease Status post bifurcation stents to the LAD and diagonal in 2006, stent to the LAD for in-stent restenoses in 2009, and CABG in April 2021 at [facility]. Diabetic foot ulcer Diabetic ulcer of right heel Encounter for postoperative care Gastroesophageal reflux disease Hypertension Kidney stones ILANA on CPAP Osteomyelitis of toe of right foot Peripheral arterial occlusive disease Personal history of noncompliance with medical treatment and regimen [place]
[2023-11-06 16:24] LABS: Troponin I < 0.012 ng/mL (0.000-0.034)
[2023-11-06 16:44] LABS: Appearance Urine Clear (Clear); Bilirubin Urine Negative (Negative); Blood Urine Negative (Negative); Color Urine Yellow (Yellow); Glucose Urine UA 2+ mg/dL (Negative); Ketones Urine Negative (Negative); Leukocyte Esterase Ur Negative LEU/UL (Negative); Nitrate Urine Negative (Negative); Protein Urine Negative (Negative); Specific Grav Ur 1.023 (1.001-1.035); Urobilinogen Urine 0.2 mg/dL (<2.0); pH Urine 7.5 (5.0-9.0)
[2023-11-06 16:50] LABS: Add Urine Microscopic? NO
[2023-11-06 17:02] LABS: Amphetamine Screen Urine Negative (Negative); Barbiturate Screen Urine Negative (Negative); Benzodiazepines Screen Urine Negative (Negative); Cannabinoid Screen Urine Negative (Negative); Cocaine Screen Urine Negative (Negative); Methadone Screen Urine Negative (Negative); Opiate Screen Urine Negative (Negative); Phencyclidine Screen Urine Negative (Negative)
== END 2023-11-06 19:42 | disposition home or self-care (01) ==
PROVIDERS: Emergency Provider Nurse Practitioner Family; PCP Family Medicine
DX: D72.829 Elevated white blood cell count, unspecified (principal); Z86.73 Personal history of transient ischemic attack (TIA), and cerebral infarction without residual deficits; D64.9 Anemia, unspecified; J44.9 Chronic obstructive pulmonary disease, unspecified; K21.9 Gastro-esophageal reflux disease without esophagitis; I10 Essential (primary) hypertension; Z87.442 Personal history of urinary calculi; G47.30 Sleep apnea, unspecified; G40.909 Epilepsy, unspecified, not intractable, without status epilepticus; E11.9 Type 2 diabetes mellitus without complications; Z79.4 Long term (current) use of insulin
CPT/HCPCS: 36415; 70450; 71045; 80053; 80307; 81003; 84484; 85025; 93005; 99284; A9270

== ENCOUNTER 2023-11-15 07:15 | Outpatient (RCR) | payer BC, MEDICAID, SELFPAY ==
[2023-10-25 08:01] VITALS: BMI 21.7
--- NOTE | 2023-10-25 09:07 | PM.PNORT ---
Progress Note: A&P Assessment and Plan (1) Diabetic foot ulcer: Qualifiers: Diabetic foot ulcer location: heel Diabetes mellitus type: type 2 Laterality: right Non-pressure ulcer stage: with necrosis of muscle Qualified Code(s): E11.621 - Type 2 diabetes mellitus with foot ulcer; L97.413 - Non-pressure chronic ulcer of right heel and midfoot with necrosis of muscle Code(s): E11.621 - Type 2 diabetes mellitus with foot ulcer; L97.509 - Non-pressure chronic ulcer of other part of unspecified foot with unspecified severity Status: Acute Assessment and Plan: Patient returns to outpatient [facility] wound clinic today for TCC removal. Graft covering removed. Incorporating well. Recommended repeat TCC application today. Patient would benefit from outpatient grafting. Will begin insurance authorization. Continue PWB with TCC in the interim. Follow up in 1 week. (2) Right foot ulcer: Qualifiers: Non-pressure ulcer stage: unspecified non-pressure ulcer stage Qualified Code(s): L97.519 - Non-pressure chronic ulcer of other part of right foot with unspecified severity Code(s): L97.519 - Non-pressure chronic ulcer of other part of right foot with unspecified severity Status: Acute (3) Type 2 diabetes mellitus: Qualifiers: Diabetes mellitus custodial insulin use: with custodial use Diabetes mellitus complication status: with circulatory complication Diabetes mellitus complication detail: with other circulatory complications Qualified Code(s): E11.59 - Type 2 diabetes mellitus with other circulatory complications; Z79.4 - half-way (current) use of insulin Code(s): E11.9 - Type 2 diabetes mellitus without complications Status: Acute Assessment and Plan: Discussed importance of proper nutrition, diabetic diet and medication compliance for optimal healing. Reviewed signs and symptoms of infection including fever, chills, night sweats, nausea, vomiting, diarrhea, changes to the wound bed or purulent drainage to report to the ED immediately. Patient verbalized understanding. (4) Behavior disturbance: Code(s): F91.9 - Conduct disorder, unspecified Status: Acute Plan Reviewed history, exam, radiographs and current labs with attending MD and covering surgeon, Dr. Flower, who agrees with current plan as indicated above. No further recommendations from Dr. Flower at this time. Subjective Subjective Date/Time Seen: 10/25/23 09:07 Interval history: 2 weeks, 5 days s/p Right foot excisional debridement down to bone, wound 5 x 5.5 cm and application of graft. No new complaints. Tolerating TCC well. Review of Systems Review of Systems: All systems reviewed & are unremarkable except as noted in HPI and below Exam Const: General: lethargic and average body habitus; No combative or diaphoretic Orientation/consciousness: oriented to person, No oriented to place and No oriented to time Limitations: altered mental status HENMT: Head: normal to inspection, normocephalic and atraumatic Ears: hearing grossly normal bilaterally Neck: Neck: normal visual inspection, supple and other ( Nontender) Resp: Effort & Inspection: normal respiratory effort Skin: Wounds: wounds noted (RIGHT Medial Heel Wound ) Extrem: Other: Right heel ulcer dressing in place. Dressing removed. Graft covering removed. [place] removed. Wound with 100% red/pink tissue. Wound measuring 5x6x0.7cm. Graft incorporating well. Moderate serosanguineous drainage. No purulence. Odor consistent with the type of graft in place. No erythema. Previous hallux amputation. Foot/leg without erythema, mild swelling. Recommended repeat silver gel, chintan, transfer and Xtrasorb. Repeat TCC Graft Application. Follow up in 1 week for TCC change. Begin outpatient grafting authorization. Psych: Mental Status: mental status grossly normal Affect: normal affect Fracture/Casting/Strapping Pre Pro
--- NOTE | 2023-11-01 08:58 | PM.PNORT ---
Progress Note: A&P Assessment and Plan (1) Diabetic foot ulcer: Qualifiers: Diabetic foot ulcer location: heel Diabetes mellitus type: type 2 Laterality: right Non-pressure ulcer stage: with necrosis of muscle Qualified Code(s): E11.621 - Type 2 diabetes mellitus with foot ulcer; L97.413 - Non-pressure chronic ulcer of right heel and midfoot with necrosis of muscle Code(s): E11.621 - Type 2 diabetes mellitus with foot ulcer; L97.509 - Non-pressure chronic ulcer of other part of unspecified foot with unspecified severity Status: Acute Assessment and Plan: Patient returns to outpatient [facility] wound clinic today for TCC removal. Graft covering removed. Incorporating well. Recommended repeat TCC application today. Patient would benefit from outpatient grafting. Will begin insurance authorization. Continue PWB with TCC in the interim. Follow up in 1 week. (2) Right foot ulcer: Qualifiers: Non-pressure ulcer stage: unspecified non-pressure ulcer stage Qualified Code(s): L97.519 - Non-pressure chronic ulcer of other part of right foot with unspecified severity Code(s): L97.519 - Non-pressure chronic ulcer of other part of right foot with unspecified severity Status: Acute (3) Type 2 diabetes mellitus: Qualifiers: Diabetes mellitus group home insulin use: with group home use Diabetes mellitus complication status: with circulatory complication Diabetes mellitus complication detail: with other circulatory complications Qualified Code(s): E11.59 - Type 2 diabetes mellitus with other circulatory complications; Z79.4 - alf (current) use of insulin Code(s): E11.9 - Type 2 diabetes mellitus without complications Status: Acute Assessment and Plan: Discussed importance of proper nutrition, diabetic diet and medication compliance for optimal healing. Reviewed signs and symptoms of infection including fever, chills, night sweats, nausea, vomiting, diarrhea, changes to the wound bed or purulent drainage to report to the ED immediately. Patient verbalized understanding. (4) Behavior disturbance: Code(s): F91.9 - Conduct disorder, unspecified Status: Acute Plan Reviewed history, exam, radiographs and current labs with attending MD and covering surgeon, Dr. Flower, who agrees with current plan as indicated above. No further recommendations from Dr. Flower at this time. Subjective Subjective Date/Time Seen: 11/01/23 08:58 Interval history: 3 weeks, 5 days s/p Right foot excisional debridement down to bone and application of graft. No new complaints. Tolerating TCC well. Review of Systems Review of Systems: All systems reviewed & are unremarkable except as noted in HPI and below Exam Const: General: lethargic and average body habitus; No combative or diaphoretic Orientation/consciousness: oriented to person, No oriented to place and No oriented to time Limitations: altered mental status HENMT: Head: normal to inspection, normocephalic and atraumatic Ears: hearing grossly normal bilaterally Neck: Neck: normal visual inspection, supple and other ( Nontender) Resp: Effort & Inspection: normal respiratory effort Skin: Wounds: wounds noted (RIGHT Medial Heel Wound ) Extrem: Other: Right heel ulcer dressing in place. Dressing removed. Graft covering removed. [place] removed. Wound with 100% red/pink tissue. Wound measuring 4.8x5.2x1.0 cm. Graft incorporating well. Moderate serosanguineous drainage. No purulence. Odor improved. No erythema. Previous hallux amputation. Foot/leg without erythema, mild swelling. Recommended repeat silver gel, chintan, transfer and Xtrasorb. Repeat TCC Graft Application. Psych: Mental Status: mental status grossly normal Affect: normal affect Fracture/Casting/Strapping Pre Procedure Consent was obtained, Procedures/risks were explained, Questions were answered, Correct patient identified and Corre
--- NOTE | 2023-11-08 09:10 | PM.PNORT ---
Progress Note: A&P Assessment and Plan (1) Diabetic foot ulcer: Qualifiers: Diabetic foot ulcer location: heel Diabetes mellitus type: type 2 Laterality: right Non-pressure ulcer stage: with necrosis of muscle Qualified Code(s): E11.621 - Type 2 diabetes mellitus with foot ulcer; L97.413 - Non-pressure chronic ulcer of right heel and midfoot with necrosis of muscle Code(s): E11.621 - Type 2 diabetes mellitus with foot ulcer; L97.509 - Non-pressure chronic ulcer of other part of unspecified foot with unspecified severity Status: Acute Assessment and Plan: Patient returns to outpatient [facility] wound clinic today for TCC removal. Graft incorporating well. Recommended repeat TCC application today. Patient would benefit from outpatient grafting. Will begin insurance authorization. Continue PWB with TCC in the interim. Follow up in 1 week. (2) Right foot ulcer: Qualifiers: Non-pressure ulcer stage: unspecified non-pressure ulcer stage Qualified Code(s): L97.519 - Non-pressure chronic ulcer of other part of right foot with unspecified severity Code(s): L97.519 - Non-pressure chronic ulcer of other part of right foot with unspecified severity Status: Acute (3) Type 2 diabetes mellitus: Qualifiers: Diabetes mellitus fdc insulin use: with fdc use Diabetes mellitus complication status: with circulatory complication Diabetes mellitus complication detail: with other circulatory complications Qualified Code(s): E11.59 - Type 2 diabetes mellitus with other circulatory complications; Z79.4 - moth exterminator (current) use of insulin Code(s): E11.9 - Type 2 diabetes mellitus without complications Status: Acute Assessment and Plan: Discussed importance of proper nutrition, diabetic diet and medication compliance for optimal healing. Reviewed signs and symptoms of infection including fever, chills, night sweats, nausea, vomiting, diarrhea, changes to the wound bed or purulent drainage to report to the ED immediately. Patient verbalized understanding. (4) Behavior disturbance: Code(s): F91.9 - Conduct disorder, unspecified Status: Acute Plan Subjective Subjective Date/Time Seen: 11/08/23 09:10 Principal diagnosis: RT DFU Interval history: 4 weeks, 5 days s/p Right foot excisional debridement down to bone and application of graft. Tolerating TCC well. Was admitted to the hospital over the weekend overnight for mental status changes. Apparently stabilized and was cleared for discharge home. Review of Systems Constitutional: Constitutional: Denies fever(s) Eyes: Eyes: Denies blurry vision ENT: Reports Normal hearing present Cardiovascular: Cardiovascular: Denies chest pain and Denies dyspnea Respiratory: Respiratory: Denies dyspnea and Denies wheezing Gastrointestinal: Gastrointestinal: Denies abdominal pain Genitourinary: Genitourinary: Denies urinary urgency Musculoskeletal: Musculoskeletal: Reports as per HPI and Denies numbness Integumentary/Breasts: Skin/Breast: Denies changing lesions and Denies sores Neurologic: Reports Normal hearing present, Denies behavioral changes, Denies confusion, Denies numbness and Denies convulsions Psychiatric: Psychiatric: Denies behavioral changes, Denies confusion and Denies hallucinations Endocrine: Endocrine: Denies heat intolerance Hematologic/Lymphatic: Hematologic/Lymphatic: Denies easy bleeding Allergic/Immunologic: Allergic/Immunologic: Denies wheezing Exam Const: General: lethargic and average body habitus; No combative or diaphoretic Orientation/consciousness: oriented to person, No oriented to place and No oriented to time Limitations: altered mental status HENMT: Head: normal to inspection, normocephalic and atraumatic Ears: hearing grossly normal bilaterally Neck: Neck: normal visual inspection, supple and other ( Nontender) Resp: Effort & Inspection: normal re
--- NOTE | 2023-11-15 09:40 | PM.IMHP ---
H&P: HPI History of Present Illness Date/Time: 11/15/23 09:40 Chief Complaint: 5 weeks, 5 days s/p right foot excisional debridement with graft application Narrative: 63-year-old male returns today for re-evaluation of his right foot status post excisional debridement with graft application and total contact casting. Patient is now residing at home. He is losing his health insurance and will not be able to return to the Wound Clinic after today until further insurance verification. He denies fever, chills, night sweats, nausea, vomiting or diarrhea. He notes an increase in left lower extremity swelling since being sent home from the halfway facility. Review of Systems Constitutional: Constitutional: Denies fever(s) Eyes: Eyes: Denies blurry vision ENT: Reports Normal hearing present Cardiovascular: Cardiovascular: Denies chest pain and Denies dyspnea Respiratory: Respiratory: Denies dyspnea and Denies wheezing Gastrointestinal: Gastrointestinal: Denies abdominal pain Genitourinary: Genitourinary: Denies urinary urgency Musculoskeletal: Musculoskeletal: Reports as per HPI and Denies numbness Integumentary/Breasts: Skin/Breast: Denies changing lesions and Denies sores Neurologic: Reports Normal hearing present, Denies behavioral changes, Denies confusion, Denies numbness and Denies convulsions Psychiatric: Psychiatric: Denies behavioral changes, Denies confusion and Denies hallucinations Endocrine: Endocrine: Denies heat intolerance Hematologic/Lymphatic: Hematologic/Lymphatic: Denies easy bleeding Allergic/Immunologic: Allergic/Immunologic: Denies wheezing [facility] Past Medical History Medical History Cerebrovascular accident (06/2021) It sounds as though he had an ischemic stroke (symptoms include vertigo and visual changes) with hemorrhagic conversion. Chronic anemia Chronic obstructive pulmonary disease Coronary artery disease Status post bifurcation stents to the LAD and diagonal in 2006, stent to the LAD for in-stent restenoses in 2009, and CABG in April 2021 at [facility]. Diabetic foot ulcer Diabetic ulcer of right heel Encounter for postoperative care Gastroesophageal reflux disease Hypertension Kidney stones ILANA on CPAP Osteomyelitis of toe of right foot Peripheral arterial occlusive disease Personal history of noncompliance with medical treatment and regimen Seizure disorder Swelling of lower extremity Type 2 diabetes mellitus Surgical History Surgical History History of amputation of left great toe History of amputation of right great toe 03/11/23 History of coronary artery bypass graft (04/2021) Done at [facility]. History of inguinal hernia repair times 2 History of myringoplasty History of percutaneous coronary intervention Bifurcation stents to LAD and diagonal in 2006. Stent to the LAD in 2009. (three stents) Family History Family History Mother Family history of diabetes mellitus in first degree relative Other Diabetes mellitus Hypertension Social History Social History Social History: The patient lives with his and 2 sons in [place]. His sons help him out. 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 He smoked about a pack a day for nearly 45 years and he quit at the time of his bypass in April 2021. He was a heavier drinker in his younger years. No illicit substance use. Surrogate medical decision maker: Shahrzad Qiu, . Code status: Full code. Smoking packs per day: 1.5 Smoking cigarettes per day: 30.0 Years smoked: 30 Smoking pack-years: 45.00 Smoking status: Former smoker Second hand tobacco smoke exposure: Yes Alcohol intake: never Substance use: never Substance use
== END 2023-12-08 14:59 | disposition home or self-care (01) ==
LOC: ANHWOC 07:15
PROVIDERS: PCP Family Medicine; Visit Provider Orthopaedic Surgery
DX: E11.621 Type 2 diabetes mellitus with foot ulcer (principal); E11.59 Type 2 diabetes mellitus with other circulatory complications; L97.413 Non-pressure chronic ulcer of right heel and midfoot with necrosis of muscle; Z79.4 Long term (current) use of insulin
CPT/HCPCS: 29445; 99214; G0463; L2116

== ENCOUNTER 2023-11-15 13:49 | Outpatient (CLI) | payer BC, SELFPAY ==
--- NOTE | ~2023-11-15 | US_ITS ---
EXAMINATION: US venous doppler [facility] DATE: 11/15/2023 14:17 INDICATION: Left lower limb swelling. TECHNIQUE: Grayscale ultrasound images without and with compression and Doppler ultrasound images of the left lower extremity veins were obtained. COMPARISON: None. FINDINGS: The visualized portions of left common femoral vein, profunda (deep) femoral vein, femoral vein, popl iteal vein, peroneal veins, and greater saphenous vein outflow are patent. There is deep vein thrombo sis of a left posterior tibial vein. IMPRESSION: 1. Deep vein thrombosis involving a left posterior tibial vein. Reviewed, dictated and finalized at location A.
== END 2023-11-15 13:50 | disposition home or self-care (01) ==
PROVIDERS: PCP Family Medicine; Visit Provider Nurse Practitioner Family
DX: I82.442 Acute embolism and thrombosis of left tibial vein (principal); M79.89 Other specified soft tissue disorders
CPT/HCPCS: 93971

== ENCOUNTER 2023-11-15 15:02 | Emergency (ER) | payer BC, SELFPAY ==
[2023-11-15 15:06] VITALS: BP 118/98; PULSE 80; RESP 16; TEMP 36.4; O2SAT 97
--- NOTE | 2023-11-15 16:07 | ED.EXTPRO ---
HPI - Extremity Problem General Chief complaint: Extremity Problem,Nontraumatic Stated complaint: blood clot Time Seen by Provider: 11/15/23 15:25 Source: patient Mode of arrival: ambulatory Limitations: no limitations History of Present Illness HPI Narrative: This is a 63-year-old male with PMH of DM, CAD, COPD, CVA, HTN who presents today from the wound care clinic for chief complaint of DVT seen on ultrasound. They ordered an ultrasound today after seeing that his leg was swollen. Patient reports that his leg has been red and swollen for the past 5 days. He is insulin-dependent and receiving wound care for diabetic foot ulcer. He denies any chest pain, shortness of breath, cough, back pain. Not on a blood thinners. Related Data Home Medications Medication Instructions Recorded Confirmed aspirin 81 mg tablet,delayed 81 mg PO DAILY 09/05/21 10/25/23 release (Adult Low Dose Aspirin) atorvastatin 40 mg tablet (Lipitor) 40 mg PO DAILY 09/05/21 10/25/23 carvedilol 3.125 mg tablet (Coreg) 3.125 mg PO Q12H 09/05/21 10/25/23 empagliflozin 10 mg tablet 10 mg PO DAILY 09/05/21 10/25/23 (Jardiance) fenofibrate 160 mg tablet 160 mg PO DAILY 09/05/21 10/25/23 lisinopril 5 mg tablet (Zestril) 5 mg PO DAILY 09/05/21 10/25/23 insulin glargine 100 unit/mL (3 45 unit subcut HS 03/11/22 10/25/23 mL) subcutaneous pen (Lantus Solostar U-100 Insulin) bisacodyl 10 mg rectal suppository 10 mg RECTAL DAILY PRN Constipation 10/14/23 10/25/23 hydroxyzine pamoate 50 mg capsule 50 mg PO Q6H PRN Anxiety 10/14/23 10/25/23 insulin lispro 100 unit/mL 0 sliding scale dose subcut QID 10/14/23 10/25/23 subcutaneous pen (Humalog KwikPen PRN Hyperglycemia (U-100) Insulin) magnesium citrate 300 ml PO DAILY PRN Constipation 10/14/23 10/25/23 magnesium hydroxide 400 mg/5 mL 30 ml PO HS PRN Constipation 10/14/23 10/25/23 oral suspension (Milk of Magnesia) zolpidem 5 mg tablet 5 mg PO HS Insomnia 10/25/23 10/25/23 ergocalciferol (vitamin D2) 1,250 1,250 mcg PO WEEKLY 11/01/23 11/01/23 mcg (50,000 unit) capsule Allergies Allergy/AdvReac Type Severity Reaction Status Date / Time metoclopramide AdvReac Mild Vomiting Verified 11/15/23 15:06 Review of Systems Review of Systems: All systems as dictated in [facility] Past Medical History Medical History Cerebrovascular accident (06/2021) It sounds as though he had an ischemic stroke (symptoms include vertigo and visual changes) with hemorrhagic conversion. Chronic anemia Chronic obstructive pulmonary disease Coronary artery disease Status post bifurcation stents to the LAD and diagonal in 2006, stent to the LAD for in-stent restenoses in 2009, and CABG in April 2021 at [facility]. Diabetic foot ulcer Diabetic ulcer of right heel Encounter for postoperative care Gastroesophageal reflux disease Hypertension Kidney stones ILANA on CPAP Osteomyelitis of toe of right foot Peripheral arterial occlusive disease Personal history of noncompliance with medical treatment and regimen Seizure disorder Swelling of lower extremity Type 2 diabetes mellitus Surgical History Surgical History History of amputation of left great toe History of amputation of right great toe 03/11/23 History of coronary artery bypass graft (04/2021) Done at [facility]. History of inguinal hernia repair times 2 History of myringoplasty History of percutaneous coronary intervention Bifurcation stents to LAD and diagonal in 2006. Stent to the LAD in 2009. (three stents) Family History Family History Mother Family history of diabetes mellitus in first degree relative Other Diabetes mellitus Hypertension Social History Social History Social History: The patient lives with his
[2023-11-15 16:35] LABS: Basophils Percent Auto 0.4 % (0.2-1.2); Eosinophils Absolute Auto 0.6 K/mm3 (0-0.3); Eosinophils Percent Auto 5.6 % (0-4.4); Hematocrit 31.3 % (42.0-52.0); Immature Granulocyte Absolute 0.08 K/mm3 (0.00-0.031); Immature Granulocyte Percent A 0.8 % (0-0.5); Lymphocytes Absolute Auto 1.29 K/mm3 (0.9-3.2); Lymphocytes Percent Auto 12.9 % (18.3-44.2); Mean Corpuscular HGB Conc 31.9 g/dl (32-36); Mean Corpuscular Hemoglobin 31.3 pg (26-34); Mean Corpuscular Volume 98.1 fl (80-100); Mean Platelet Volume 9.8 fl (7.4-10.4); Monocytes Absolute Auto 1.2 K/mm3 (0.1-0.6); Monocytes Percent Auto 11.7 % (2.6-8.5); Neutrophils Absolute Auto 6.9 K/mm3 (1.3-6.7); Neutrophils Percent Auto 68.6 % (45.5-73.1); Platelet Count Result 300 k/mm3 (150-375); Red Blood Count 3.19 M/mm3 (4.6-6.20); Red Cell Distribution Width 17.2 % (11.5-14.5)
[2023-11-15 16:45] LABS: Anion Gap 6 mmol/L (4-12); Blood Urea Nitrogen 15 mg/dL (9-20); Calcium 9.1 mg/dL (8.4-10.2); Carbon Dioxide 23 mmol/L (22-30); Chloride 109 mmol/L (98-107); Estimated CRCL calculation 68 ml/min; Estimated Glomerular Filt Rate > 60; Glucose 190 mg/dL (65-110); Potassium 4.1 mmol/L (3.4-5.0); Sodium 138 mmol/L (137-145)
[2023-11-15 16:59] LABS: INR 1.1; Prothrombin Time 14.5 Seconds (11.1-14.7)
[2023-11-15 17:00] LABS: Partial Thromboplastin Time 44.9 Seconds (22.3-36.8)
[2023-11-15 17:23] VITALS: BP 111/70; PULSE 82; RESP 20; O2SAT 98
== END 2023-11-15 17:24 | disposition home or self-care (01) ==
PROVIDERS: Emergency Provider Physician Assistant
DX: I82.442 Acute embolism and thrombosis of left tibial vein (principal); E11.621 Type 2 diabetes mellitus with foot ulcer; L97.419 Non-pressure chronic ulcer of right heel and midfoot with unspecified severity; I25.10 Atherosclerotic heart disease of native coronary artery without angina pectoris; I10 Essential (primary) hypertension; E11.51 Type 2 diabetes mellitus with diabetic peripheral angiopathy without gangrene; I73.9 Peripheral vascular disease, unspecified; J44.9 Chronic obstructive pulmonary disease, unspecified; G40.909 Epilepsy, unspecified, not intractable, without status epilepticus; G47.33 Obstructive sleep apnea (adult) (pediatric); D64.9 Anemia, unspecified; K21.9 Gastro-esophageal reflux disease without esophagitis; Z95.1 Presence of aortocoronary bypass graft; Z87.442 Personal history of urinary calculi; Z87.891 Personal history of nicotine dependence; Z89.412 Acquired absence of left great toe; Z89.411 Acquired absence of right great toe; Z79.82 Long term (current) use of aspirin; Z79.84 Long term (current) use of oral hypoglycemic drugs; Z79.4 Long term (current) use of insulin; Z79.899 Other long term (current) drug therapy
CPT/HCPCS: 36415; 80048; 85025; 85610; 85730; 93971; 99283

== ENCOUNTER 2023-12-31 19:53 | Emergency (ER) | payer BC, SELFPAY ==
[2023-12-31 20:09] VITALS: BP 134/76; PULSE 83; RESP 16; TEMP 36.5; O2SAT 99
--- NOTE | 2023-12-31 20:52 | ED.GENADULT ---
HPI - General Adult General Chief complaint: Wound/Laceration Stated complaint: foot pain Time Seen by Provider: 12/31/23 20:37 History of Present Illness HPI narrative: 63-year-old male presenting to the emergency department for evaluation for wound care. Patient has had a chronic wound on his right foot for approximately 3 months. Patient had been having follow-up with wound care. Patient states he had an issue with his insurance over the course of the last week and had not seen wound care for approximately 1 week and did not change his dressing. Patient states he now does have insurance again, he will have follow-up with Wound Care but he wanted the wound evaluated today. patient is currently on Xarelto Related Data Home Medications Medication Instructions Recorded Confirmed aspirin 81 mg tablet,delayed 81 mg PO DAILY 09/05/21 11/25/23 release (Adult Low Dose Aspirin) atorvastatin 40 mg tablet (Lipitor) 40 mg PO DAILY 09/05/21 11/25/23 carvedilol 3.125 mg tablet (Coreg) 3.125 mg PO Q12H 09/05/21 11/25/23 empagliflozin 10 mg tablet 10 mg PO DAILY 09/05/21 11/25/23 (Jardiance) fenofibrate 160 mg tablet 160 mg PO DAILY 09/05/21 11/25/23 lisinopril 5 mg tablet (Zestril) 5 mg PO DAILY 09/05/21 11/25/23 insulin glargine 100 unit/mL (3 45 unit subcut HS 03/11/22 11/25/23 mL) subcutaneous pen (Lantus Solostar U-100 Insulin) Allergies Allergy/AdvReac Type Severity Reaction Status Date / Time metoclopramide AdvReac Mild Vomiting Verified 12/31/23 20:12 Review of Systems Review of Systems: All systems reviewed & are unremarkable except as noted in HPI and below PMFSH Past Medical History Medical History Cerebrovascular accident (06/2021) It sounds as though he had an ischemic stroke (symptoms include vertigo and visual changes) with hemorrhagic conversion. Chronic anemia Chronic obstructive pulmonary disease Coronary artery disease Status post bifurcation stents to the LAD and diagonal in 2006, stent to the LAD for in-stent restenoses in 2009, and CABG in April 2021 at [facility]. Diabetic foot ulcer Diabetic ulcer of right heel Encounter for postoperative care Gastroesophageal reflux disease Hypertension Kidney stones ILANA on CPAP Osteomyelitis of toe of right foot Peripheral arterial occlusive disease Personal history of noncompliance with medical treatment and regimen Seizure disorder Swelling of lower extremity Type 2 diabetes mellitus Surgical History Surgical History History of amputation of left great toe History of amputation of right great toe 03/11/23 History of coronary artery bypass graft (04/2021) Done at [facility]. History of inguinal hernia repair times 2 History of myringoplasty History of percutaneous coronary intervention Bifurcation stents to LAD and diagonal in 2006. Stent to the LAD in 2009. (three stents) Family History Family History Mother Family history of diabetes mellitus in first degree relative Other Diabetes mellitus Hypertension Social History Social History Social History: The patient lives with his and 2 sons in [place]. His sons help him out. 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 He smoked about a pack a day for nearly 45 years and he quit at the time of his bypass in April 2021. He was a heavier drinker in his younger years. No illicit substance use. Surrogate medical decision maker: Shahrzad Qiu, . Code status: Full code. Smoking packs per day: 1.5 Smoking cigarettes per day: 30.0 Years smoked: 30 Smoking pack-years: 45.00 Smoking status: Former smoker Second hand tobacco smoke exposure: Yes Alcohol intake: never Substance use: never Substance use type: d
--- NOTE | 2023-12-31 21:12 | PC.NURSE ---
patient educated on dressing care. wound cleansed with wound cleanser- tefla guaze applied, 4x4 guaze applied, wrapped in kerlex. and walking shoe placed. patient denies any discomfort.
[2023-12-31 21:32] VITALS: BP 137/82; PULSE 84; RESP 18; TEMP 36.4; O2SAT 97
== END 2023-12-31 21:34 | disposition home or self-care (01) ==
PROVIDERS: Emergency Provider Emergency Medicine
DX: E11.621 Type 2 diabetes mellitus with foot ulcer (principal); L97.419 Non-pressure chronic ulcer of right heel and midfoot with unspecified severity; I25.10 Atherosclerotic heart disease of native coronary artery without angina pectoris; I10 Essential (primary) hypertension; E11.51 Type 2 diabetes mellitus with diabetic peripheral angiopathy without gangrene; I73.9 Peripheral vascular disease, unspecified; G40.909 Epilepsy, unspecified, not intractable, without status epilepticus; J44.9 Chronic obstructive pulmonary disease, unspecified; K21.9 Gastro-esophageal reflux disease without esophagitis; D64.9 Anemia, unspecified; G47.33 Obstructive sleep apnea (adult) (pediatric); Z95.1 Presence of aortocoronary bypass graft; Z95.5 Presence of coronary angioplasty implant and graft; Z86.73 Personal history of transient ischemic attack (TIA), and cerebral infarction without residual deficits; Z87.442 Personal history of urinary calculi; Z87.891 Personal history of nicotine dependence; Z89.412 Acquired absence of left great toe; Z89.411 Acquired absence of right great toe; Z79.82 Long term (current) use of aspirin; Z79.4 Long term (current) use of insulin; Z79.84 Long term (current) use of oral hypoglycemic drugs; Z79.01 Long term (current) use of anticoagulants
CPT/HCPCS: 99282

== ENCOUNTER 2024-03-04 20:53 | Emergency (ER) | payer OTHER, SELFPAY ==
--- NOTE | ~2024-03-04 | CT_ITS ---
CT head without contrast Indication: Slurred speech COMPARISON: 11/06/2023 Technique: Serial scans were obtained through the brain without the administration of contrast. Dose reduction technique was used on this scan by utilizing automated exposure control and iterative recon struction technique. The dose-length product (DLP) was 681.00 mGy-cm. Findings: There is no evidence of intracranial hemorrhage, mass lesion, or acute infarct. Chronic rig ht occipital/posterior temporal infarct is unchanged. The ventricles and subarachnoid spaces are othe rwise unremarkable. Low attenuation regions are seen within the periventricular white matter bilater ally, likely representing changes from chronic microvascular ischemic disease. There is no evidence o f edema, mass effect or midline shift. The visualized paranasal sinuses and mastoid air cells are c lear. Impression: No intracranial hemorrhage, mass, or acute infarct. Stable chronic right occipital/posterior temporal infarct. Stable chronic microvascular ischemic changes. Reviewed, dictated and finalized at location . Impression: No intracranial hemorrhage, mass, or acute infarct. Stable chronic right occipital/posterior temporal infarct. Stable chronic microvascular ischemic changes.
--- NOTE | ~2024-03-04 | CT_ITS ---
CT ANGIOGRAM NECK AND HEAD History: Slurred speech, unsteady gait. Technique: Serial spiral axial images through the head and neck were obtained during arterial phase I V injection of 100 cc of Omnipaque 350. 3-D postprocessing and MIP images were then reconstructed on the remote workstation. Dose reduction technique was used on this scan by utilizing automated exposur e control and iterative reconstruction technique. The dose-length product (DLP) was 989.76 mGy-cm. CTA neck findings: Bilateral vertebral arteries are patent. Bilateral common carotid, internal carot id, and external carotid arteries are patent. No large vessel occlusion. There are small calcified pl aques at the proximal internal carotid arteries bilaterally, but no significant stenosis. No aneurysm evident. The proximal right internal carotid artery demonstrates 0% stenosis relative to the normal distal artery lumen diameter. The proximal left internal carotid artery demonstrates 0% stenosis rela tive to the normal distal artery lumen diameter. CTA head findings: Distal vertebral, basilar artery, and posterior cerebral arteries are patent. Dist al internal carotid arteries, middle cerebral arteries, and anterior cerebral arteries are patent. Th ere are moderate calcifications of the cavernous portions of the distal internal carotid arteries homar aterally. No significant stenosis or large vessel occlusion seen. No aneurysm. Impression: No significant vascular abnormality evident. Reviewed, dictated and finalized at location . Impression: No significant vascular abnormality evident.
[2024-03-04 21:42] VITALS: BP 114/65; PULSE 79; RESP 18; TEMP 36.6; O2SAT 98
[2024-03-04 22:28] LABS: INR 1.3; Prothrombin Time 16.4 Seconds (11.1-14.7)
[2024-03-04 22:29] LABS: Partial Thromboplastin Time 47.4 Seconds (22.3-36.8)
[2024-03-04 22:30] LABS: Alanine Aminotransferase 16 U/L (6-50); Albumin Level 4.4 g/dL (3.5-5.1); Alkaline Phosphatase 58 U/L (38-126); Anion Gap 13 mmol/L (4-12); Aspartate Amino Transferase 20 U/L (17-59); Bilirubin,Total 0.2 mg/dL (0.2-1.3); Blood Urea Nitrogen 34 mg/dL (9-20); Calcium 9.1 mg/dL (8.4-10.2); Carbon Dioxide 20 mmol/L (22-30); Chloride 104 mmol/L (98-107); Estimated CRCL calculation 54 ml/min; Estimated Glomerular Filt Rate 51; Ethanol < 10 mg/dL (<10); Glucose 204 mg/dL (65-110); Lactic Acid Reflex 0.9 mmol/L (0.7-2.0); Magnesium 2.1 mg/dL (1.6-2.3); Potassium 4.3 mmol/L (3.4-5.0); Sodium 137 mmol/L (137-145)
--- NOTE | 2024-03-04 22:32 | PC.NURSE ---
Patient in CT at this time.
[2024-03-04 22:41] LABS: Troponin I < 0.012 ng/mL (0.000-0.034)
[2024-03-04 23:03] LABS: Basophils Absolute Auto 0.1 K/mm3 (0.0-0.1); Basophils Percent Auto 0.7 % (0.2-1.2); Eosinophils Absolute Auto 0.3 K/mm3 (0-0.3); Eosinophils Percent Auto 3.3 % (0-4.4); Hemoglobin 11.3 g/dL (14.0-18.0); Immature Granulocyte Absolute 0.03 K/mm3 (0.00-0.031); Immature Granulocyte Percent A 0.3 % (0-0.5); Lymphocytes Absolute Auto 1.85 K/mm3 (0.9-3.2); Lymphocytes Percent Auto 21.2 % (18.3-44.2); Mean Corpuscular HGB Conc 33.2 g/dl (32-36); Mean Corpuscular Volume 93.4 fl (80-100); Mean Platelet Volume 10.7 fl (7.4-10.4); Monocytes Percent Auto 11.1 % (2.6-8.5); Neutrophils Absolute Auto 5.5 K/mm3 (1.3-6.7); Neutrophils Percent Auto 63.4 % (45.5-73.1); Platelet Count Result 292 k/mm3 (150-375); Red Blood Count 3.64 M/mm3 (4.6-6.20); Red Cell Distribution Width 15.4 % (11.5-14.5); White Blood Count 8.7 K/mm3 (4.5-10.0)
[2024-03-04 23:56] VITALS: BP 112/72; PULSE 79; RESP 16; O2SAT 99
--- NOTE | 2024-03-05 00:15 | ED.GENADULT ---
HPI - General Adult General Chief complaint: Neuro Symptoms/Deficit Stated complaint: Slurred speech for 2 days Time Seen by Provider: 03/04/24 23:57 History of Present Illness HPI narrative: Patient is a 61-year-old gentleman who presents emergency department chief complaint of slurred speech and unsteady gait. The family reports that his symptoms have been going since yesterday but then also states that since 5:00 p.m. christiano dean had significant difficulty with speech. The patient has prior history of stroke is on daily aspirin and has been on Xarelto in the past. Related Data Home Medications Medication Instructions Recorded Confirmed aspirin 81 mg tablet,delayed 81 mg PO DAILY 09/05/21 02/24/24 release (Adult Low Dose Aspirin) atorvastatin 40 mg tablet (Lipitor) 40 mg PO DAILY 09/05/21 02/24/24 carvedilol 3.125 mg tablet (Coreg) 3.125 mg PO Q12H 09/05/21 02/24/24 empagliflozin 10 mg tablet 10 mg PO DAILY 09/05/21 02/24/24 (Jardiance) fenofibrate 160 mg tablet 160 mg PO DAILY 09/05/21 02/24/24 lisinopril 5 mg tablet (Zestril) 5 mg PO DAILY 09/05/21 02/24/24 insulin glargine 100 unit/mL (3 45 unit subcut HS 03/11/22 02/24/24 mL) subcutaneous pen (Lantus Solostar U-100 Insulin) famotidine 40 mg tablet mg PO 02/24/24 02/24/24 olanzapine 20 mg tablet mg PO 02/24/24 02/24/24 Allergies Allergy/AdvReac Type Severity Reaction Status Date / Time metoclopramide AdvReac Mild Vomiting Verified 03/04/24 21:51 Review of Systems Review of Systems: A 10 system review of systems was completed on the patient and is negative except for what is stated in the HPI. Nursing and ancillary documentation was reviewed. [facility] Past Medical History Medical History Cerebrovascular accident (06/2021) It sounds as though he had an ischemic stroke (symptoms include vertigo and visual changes) with hemorrhagic conversion. Chronic anemia Chronic obstructive pulmonary disease Coronary artery disease Status post bifurcation stents to the LAD and diagonal in 2006, stent to the LAD for in-stent restenoses in 2009, and CABG in April 2021 at [facility]. Diabetic foot ulcer Diabetic ulcer of right heel Encounter for postoperative care Gastroesophageal reflux disease Hypertension Kidney stones ILANA on CPAP Osteomyelitis of toe of right foot Peripheral arterial occlusive disease Personal history of noncompliance with medical treatment and regimen Seizure disorder Swelling of lower extremity Type 2 diabetes mellitus Surgical History Surgical History History of amputation of left great toe History of amputation of right great toe 03/11/23 History of coronary artery bypass graft (04/2021) Done at [facility]. History of inguinal hernia repair times 2 History of myringoplasty History of percutaneous coronary intervention Bifurcation stents to LAD and diagonal in 2006. Stent to the LAD in 2009. (three stents) Family History Family History Mother Family history of diabetes mellitus in first degree relative Other Diabetes mellitus Hypertension Social History Social History Social History: The patient lives with his and 2 sons in [place]. His sons help him out. 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 He smoked about a pack a day for nearly 45 years and he quit at the time of his bypass in April 2021. He was a heavier drinker in his younger years. No illicit substance use. Surrogate medical decision maker: Shahrzad Qiu, . Code status: Full code. Smoking packs per day: 1.5 Smoking cigarettes per day: 30.0 Years smoked: 30 Smoking pack-years: 45.00 Smoking status: Former smoker Second hand tobacco smoke exposure:
[2024-03-05 00:28] VITALS: BP 122/79; PULSE 72; RESP 16; O2SAT 97
[2024-03-05 00:44] LABS: Add Urine Microscopic? YES; Appearance Urine Clear (Clear); Bacteria Urine None Seen /hpf; Bilirubin Urine Negative (Negative); Blood Urine Negative (Negative); Color Urine Yellow (Yellow); Glucose Urine UA 3+ mg/dL (Negative); Ketones Urine Negative (Negative); Leukocyte Esterase Ur Trace LEU/UL (Negative); Nitrate Urine Negative (Negative); Non Pathogenic Casts 0-2; Protein Urine Negative (Negative); RBC Urine 0-2 /hpf (0-2); Specific Grav Ur 1.038 (1.001-1.035); Squamous Epithelial Cell Urine None Seen /hpf (Few); Urobilinogen Urine 0.2 mg/dL (<2.0); WBC Urine 0-5 /hpf (0-3); pH Urine 6.5 (5.0-9.0)
[2024-03-05 00:55] LABS: Amphetamine Screen Urine Negative (Negative); Barbiturate Screen Urine Negative (Negative); Benzodiazepines Screen Urine Negative (Negative); Cannabinoid Screen Urine Negative (Negative); Cocaine Screen Urine Negative (Negative); Methadone Screen Urine Negative (Negative); Opiate Screen Urine Negative (Negative); Phencyclidine Screen Urine Negative (Negative)
[2024-03-09 12:51] LABS: Estimated CRCL calculation 47 ml/min; Estimated Glomerular Filt Rate 44
== END 2024-03-05 00:30 | disposition left against medical advice (07) ==
PROVIDERS: Emergency Provider Emergency Medicine; PCP Family Medicine
DX: R47.1 Dysarthria and anarthria (principal); Z86.73 Personal history of transient ischemic attack (TIA), and cerebral infarction without residual deficits; D64.9 Anemia, unspecified; J44.9 Chronic obstructive pulmonary disease, unspecified; I25.10 Atherosclerotic heart disease of native coronary artery without angina pectoris; K21.9 Gastro-esophageal reflux disease without esophagitis; I10 Essential (primary) hypertension; Z87.442 Personal history of urinary calculi; G47.30 Sleep apnea, unspecified; G40.909 Epilepsy, unspecified, not intractable, without status epilepticus; E11.9 Type 2 diabetes mellitus without complications; Z79.4 Long term (current) use of insulin
CPT/HCPCS: 36415; 70450; 70496; 70498; 80053; 80307; 81001; 82565; 83605; 83735; 84484; 85025; 85610; 85730; 99284; Q9967

== ENCOUNTER 2024-04-13 07:29 | Outpatient (RCR) | payer OTHER, SELFPAY ==
[2024-03-08 10:04] VITALS: BMI 24.4
== END 2024-05-02 12:48 | disposition home or self-care (01) ==
LOC: ANHWOC 07:29
PROVIDERS: PCP Family Medicine; Visit Provider Family Medicine
DX: L97.519 Non-pressure chronic ulcer of other part of right foot with unspecified severity (principal)
CPT/HCPCS: 99212; 99213; 99214; G0463; L2116

== ENCOUNTER 2024-04-17 22:58 | Emergency (ER) | payer OTHER, SELFPAY ==
--- NOTE | ~2024-04-17 | CT_ITS ---
EXAMINATION: CT brain wo con DATE: 04/17/2024 23:26 INDICATION: headache . TECHNIQUE: Computed tomography (CT) of the head was performed without intravenous contrast. The mA wa s adjusted according to patient size. Iterative reconstruction technique was employed. The dose-lengt h product was 756.67 mGy-cm. COMPARISON: CT brain 03/04/2024. FINDINGS: No acute intracranial hemorrhage or extra-axial fluid collection. No hydrocephalus, mass, or herniation. No acute ischemic infarct. Unremarkable dural venous sinus attenuation. No acute osseous abnormality. Mild ethmoid mucosal thickening, the remaining aerated spaces are clear. Moderate atrophy and chronic white matter change. Atherosclerotic intracranial calcification. Old rig ht occipital/posterior temporal infarct. Old right cerebellar infarct. Small old lacunar infarct in t he right thalamus. IMPRESSION: No acute intracranial process. Results reported telephonically to Dr. Wallace by Dr. Ray at 11:32 PM on 04/17/2024. Reviewed, dictated and finalized at location K. IMPRESSION: No acute intracranial process. Results reported telephonically to Dr. Wallace by Dr. Ray at 11:32 PM on .
--- NOTE | ~2024-04-17 | XR_ITS ---
EXAMINATION: XR chest 1V portable Exam Date/Time: 04/17/2024 23:37 CDT HISTORY: weakness Comparison: 11/06/2023. RESULT: Lines, tubes, and devices: Intact sternotomy wires. Surgical clips and ostial markers. Lungs and pleura: Emphysematous change. Moderate diffuse reticular opacities. Indistinct vascular ma rgins. Subsegmental left basilar airspace disease with mild left arthritic angle blunting. Cardiomediastinal silhouette: Stable. Other: No acute osseous or upper abdominal finding. IMPRESSION: Moderate interstitial edema. Subsegmental left basilar atelectasis/consolidation. Possible small left pleural effusion. Reviewed, dictated and finalized at location K. IMPRESSION: Moderate interstitial edema. Subsegmental left basilar atelectasis/consolidatio n. Possible small left pleural effusion.
--- NOTE | ~2024-04-17 | CT_ITS ---
EXAMINATION: CTA brain carotid DATE: 04/17/2024 23:34 INDICATION: severe headache, hx of CVA TECHNIQUE: Computed tomographic angiography (CTA) of the head and neck was performed without and with 100 mL Omnipaque-350 intravenous contrast. Automated exposure control and iterative reconstruction t echnique were employed. The dose-length product was 1084.90 mGy-cm. Maximum intensity projection and volume rendered 3D-reconstructions were created by the technologist on a separate workstation. COMPARISON: CT brain, same date; CTA brain carotid 03/04/2024. FINDINGS: CTA HEAD: No large vessel occlusion, aneurysm, high flow vascular malformation, nidus or extravasation. Moderat e calcifications in the cavernous carotids, without significant stenosis. Small old right thalamic an d cerebellar infarcts. Old right occipital/posterior temporal infarct. Otherwise symmetric parenchyma l enhancement. Patent cerebral veins. CTA NECK: Aortic arch and proximal great vessels: Normal arch anatomy. Mild arch calcification. Right common carotid, carotid bifurcation, and internal carotid artery: Mild calcification at the bif urcation.There is 0% stenosis of the proximal right internal carotid artery relative to normal distal artery lumen diameter (NASCET criteria). Left common carotid, carotid bifurcation, and internal carotid artery: Mild consultation at the bifur cation.There is 0% stenosis of the proximal left internal carotid artery relative to normal distal ar mag lumen diameter (NASCET criteria). Vertebral arteries: No significant plaque or stenosis. Left vertebral artery is dominant. Other findings: Multiple missing teeth. Cervical spondylosis. Biapical pleural scarring. Emphysematou s change. Mild pulmonary edema. Status post CABG. IMPRESSION: No large vessel intracranial occlusion, high-grade intracranial stenosis, or aneurysm. No carotid or vertebral artery occlusion, dissection, or significant stenosis. Emphysematous change with mild pulmonary edema. Reviewed, dictated and finalized at location K. IMPRESSION: No large vessel intracranial occlusion, high-grade intracranial stenosis, or an eurysm. No carotid or vertebral artery occlusion, dissection, or significant stenosis. Emphysematous change with mild pulmonary edema.
[2024-04-17 23:03] VITALS: BP 122/65; PULSE 77; RESP 14; TEMP 36.4; O2SAT 96
--- NOTE | 2024-04-17 23:15 | ECG_ITS ---
Test Date: 2024-04-17 23:54:15 Measurements Intervals [place] Rate: 72 P: 24 RI: 228 QRS: -49 QRSD: 103 T: 109 QT: 369 QTc: 404 Interpretive Statements SINUS RHYTHM WITH FIRST DEGREE AV BLOCK LOW QRS VOLTAGE IN PRECORDIAL LEADS [QRS DEFLECTION < 1.0 mV IN CHEST LEADS] LEFT ANTERIOR FASCICULAR BLOCK [QRS AXIS <= -45, QR IN I, RS IN II] ANTEROSEPTAL MYOCARDIAL INFARCTION , OF INDETERMINATE AGE [40+ ms Q WAVE IN V1-V4] MODERATE T-WAVE ABNORMALITY, CONSIDER LATERAL ISCHEMIA [-0.1+ mV T WAVE IN I/aVL/V5/V6] No previous ECG available for comparison Electronically Signed On 04-18-2024 14:29:07 CDT by Richard Fletcher M.D.
[2024-04-17 23:17] LABS: Glucose Point of Care 183 mg/dl (65-105)
[2024-04-17 23:26] LABS: Estimated CRCL calculation 47 ml/min; Estimated Glomerular Filt Rate 47
[2024-04-17 23:39] VITALS: BP 108/66; PULSE 72; PULSE 74; RESP 17; O2SAT 96
[2024-04-17] MEDS: SODIUM CHLORIDE 0.9% IV 1,000 ML 999 ML IV CONT (23:39)
[2024-04-17 23:40] LABS: Basophils Absolute Auto 0.1 K/mm3 (0.0-0.1); Basophils Percent Auto 0.5 % (0.2-1.2); Eosinophils Absolute Auto 0.3 K/mm3 (0-0.3); Eosinophils Percent Auto 2.9 % (0-4.4); Hematocrit 32.4 % (42.0-52.0); Hemoglobin 10.7 g/dL (14.0-18.0); Immature Granulocyte Absolute 0.04 K/mm3 (0.00-0.031); Immature Granulocyte Percent A 0.4 % (0-0.5); Lymphocytes Absolute Auto 2.13 K/mm3 (0.9-3.2); Lymphocytes Percent Auto 22.1 % (18.3-44.2); Mean Corpuscular Hemoglobin 31.4 pg (26-34); Mean Platelet Volume 10.7 fl (7.4-10.4); Monocytes Absolute Auto 1.2 K/mm3 (0.1-0.6); Monocytes Percent Auto 12.5 % (2.6-8.5); Neutrophils Absolute Auto 5.9 K/mm3 (1.3-6.7); Neutrophils Percent Auto 61.6 % (45.5-73.1); Platelet Count Result 272 k/mm3 (150-375); Red Blood Count 3.41 M/mm3 (4.6-6.20); Red Cell Distribution Width 15.6 % (11.5-14.5); White Blood Count 9.6 K/mm3 (4.5-10.0)
[2024-04-17 23:41] VITALS: BP 108/66; PULSE 75; RESP 15; O2SAT 97
[2024-04-17 23:51] LABS: INR 1.1; Prothrombin Time 14.1 Seconds (11.1-14.7)
[2024-04-17 23:52] LABS: Partial Thromboplastin Time 47.7 Seconds (22.3-36.8)
[2024-04-17 23:53] LABS: Alanine Aminotransferase 13 U/L (6-50); Albumin Level 4.3 g/dL (3.5-5.1); Alkaline Phosphatase 53 U/L (38-126); Anion Gap 9 mmol/L (4-12); Aspartate Amino Transferase 14 U/L (17-59); Bilirubin,Total 0.3 mg/dL (0.2-1.3); Blood Urea Nitrogen 22 mg/dL (9-20); Calcium 8.8 mg/dL (8.4-10.2); Carbon Dioxide 22 mmol/L (22-30); Chloride 105 mmol/L (98-107); Estimated CRCL calculation 51 ml/min; Estimated Glomerular Filt Rate 51; Glucose 159 mg/dL (65-110); Potassium 4.3 mmol/L (3.4-5.0); Sodium 136 mmol/L (137-145)
[2024-04-18 00:05] LABS: Troponin I < 0.012 ng/mL (0.000-0.034)
[2024-04-18] MEDS: dexAMETHasone SOD PHOS INJ 10 MG/ML 1 ML VIAL IV PUSH (00:25)
[2024-04-18] MEDS: PROCHLORPERAZINE EDISYLATE 10 MG/2 ML VIAL IV PUSH (00:25)
[2024-04-18] MEDS: diphenhydrAMINE HCl INJ 50 MG/ML VIAL 25 MG IV PUSH (00:25)
[2024-04-18 00:41] LABS: Add Urine Microscopic? NO; Appearance Urine Clear (Clear); Bilirubin Urine Negative (Negative); Blood Urine Negative (Negative); Color Urine Yellow (Yellow); Glucose Urine UA Trace mg/dL (Negative); Ketones Urine Negative (Negative); Leukocyte Esterase Ur Negative LEU/UL (Negative); Nitrate Urine Negative (Negative); Protein Urine Negative (Negative); Specific Grav Ur 1.022 (1.001-1.035); Urobilinogen Urine 0.2 mg/dL (<2.0)
--- NOTE | 2024-04-18 00:55 | ED_ITS ---
HPI - Neuro Symptoms/Deficit General Chief Complaint: Suspected CVA Stated Complaint: headache in my head ; pounding Time Seen by Provider: 04/17/24 23:16 History of Present Illness HPI Narrative: Patient is a 61-year-old gentleman presents emergency department with chief complaint of headache. Patient reports that he has had a prior history of a stroke about 2 years ago reports that since then he has difficulty with remembering what the date and time are patient states that this evening he started having severe headache and was concerned that he may have a bleed in his brain as his mother had a cerebral aneurysm. Patient reports no trauma reports no weakness in his arms or legs the patient reports symptoms began around 7 or 8:00 a.m. this evening. Related Data Home Medications Medication Instructions Recorded Confirmed aspirin 81 mg tablet,delayed 81 mg PO DAILY 09/05/21 03/23/24 release (Adult Low Dose Aspirin) atorvastatin 40 mg tablet (Lipitor) 40 mg PO DAILY 09/05/21 03/23/24 carvedilol 3.125 mg tablet (Coreg) 3.125 mg PO Q12H 09/05/21 03/23/24 fenofibrate 160 mg tablet 160 mg PO DAILY 09/05/21 03/23/24 lisinopril 5 mg tablet (Zestril) 5 mg PO DAILY 09/05/21 03/23/24 insulin glargine 100 unit/mL (3 45 unit subcut HS 03/11/22 03/23/24 mL) subcutaneous pen (Lantus Solostar U-100 Insulin) famotidine 40 mg tablet mg PO 02/24/24 03/23/24 olanzapine 20 mg tablet mg PO 02/24/24 03/23/24 Allergies Allergy/AdvReac Type Severity Reaction Status Date / Time metoclopramide AdvReac Mild Vomiting Verified 04/17/24 23:43 Review of Systems Review of Systems: A 10 system review of systems was completed on the patient and is negative except for what is stated in the HPI. Nursing and ancillary documentation was reviewed. [facility] Past Medical History Medical History Cerebrovascular accident (06/2021) It sounds as though he had an ischemic stroke (symptoms include vertigo and visual changes) with hemorrhagic conversion. Chronic anemia Chronic obstructive pulmonary disease Coronary artery disease Status post bifurcation stents to the LAD and diagonal in 2006, stent to the LAD for in-stent restenoses in 2009, and CABG in April 2021 at [facility]. Diabetic foot ulcer Diabetic ulcer of right heel Encounter for postoperative care Gastroesophageal reflux disease Hypertension Kidney stones ILANA on CPAP Osteomyelitis of toe of right foot Peripheral arterial occlusive disease Personal history of noncompliance with medical treatment and regimen Seizure disorder Swelling of lower extremity Type 2 diabetes mellitus Surgical History Surgical History History of amputation of left great toe History of amputation of right great toe 03/11/23 History of coronary artery bypass graft (04/2021) Done at [facility]. History of inguinal hernia repair times 2 History of myringoplasty History of percutaneous coronary intervention Bifurcation stents to LAD and diagonal in 2006. Stent to the LAD in 2009. (three stents) Family History Family History Mother Family history of diabetes mellitus in first degree relative Other Diabetes mellitus Hypertension Social History Social History Social History: The patient lives with his and 2 sons in [place]. His sons help him out. 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 He smoked about a pack a day for nearly 45 years and he quit at the time of his bypass in April 2021. He was a heavier drinker in his younger years. No illicit substance use. Surrogate medical decision maker: Shahrzad Qiu, . Code status: Full code. Smoking packs per day: 1.5 Smoking cigarettes per day: 30.0 Years smoked: 30 Smoking pack-years: 45.00 Smoking status: Former smoker Second hand tobacco smoke exposure: Yes Alcohol intake: never Substance use: never Substance use type: does not use Do You Feel Safe in your Home?: Yes Lack of Transportation: No Lack of Food: Never True Current Housing: I Have Housing Concerned About Future Housing: No Difficulty Paying Gas/Electric Bills: No Difficulty Paying for Meds: No Currently Unemployed: No Education: High School Diploma/GED Difficulty w/ Childcare or Family Care: No Spiritual care concerns: No Exam Narrative: GENERAL: Well-appearing, well-nourished, and in no acute distress. HEAD: Normocephalic, atraumatic. EYES: PERRLA and EOMI. ENT: Nares clear, no rhinorrhea or epistaxis. Mucous membranes moist. NECK: Supple. CHEST: Clear to auscultation. No respiratory distress. HEART: Regular rate and rhythm. No murmur heard. Normal peripheral pulses. ABDOMEN: Soft, nontender, nondistended, normal active bowel sounds. EXTREMITIES: Normal range of motion. No edema. SKIN: Warm, dry, no rash. NEURO: No focal deficits. Alert and oriented x3. PSYCH: Normal mood and affect. Course Vital Signs Vital signs: Vital Signs Temperature 36.4 C 04/17/24 23:03 Pulse Rate 77 04/17/24 23:03 Respiratory Rate 14 04/17/24 23:03 Blood Pressure 122/65 04/17/24 23:03 Pulse Oximetry 96 04/17/24 23:03 Temperature 36.4 C 04/17/24 23:03 Pulse Rate 75 04/17/24 23:41 Respiratory Rate 15 04/17/24 23:41 Blood Pressure 108/66 04/17/24 23:41 Pulse Oximetry 97 04/17/24 23:41 MDM - Neuro Symptoms/Deficit MDM Narrative Medical decision making narrative: Differential diagnosis includes intracranial hemorrhage, subarachnoid hemorrhage, cerebral aneurysm, migraine headache, headache Patient currently has no focal motor deficits. The patient is at his baseline neurological status only complaining of headache. The patient is outside of the window from a thrombolytics standpoint CT head showed no evidence of hemorrhage CT angiography of the head and neck showed no evidence of aneurysm The patient was treated with a classic migraine cocktail and is feeling much better and his symptoms have completely resolved at this time Lab Data 04/17/24 23:25 04/17/24 23:25 Labs: Lab Results 04/17/24 04/17/24 04/17/24 Range/Units 23:14 23:24 23:25 WBC 9.6 (4.5-10.0) K/mm3 RBC 3.41 L (4.6-6.20) M/mm3 Hgb 10.7 L (14.0-18.0) g/dL Hct 32.4 L (42.0-52.0) % MCV 95.0 (80-100) fl MCH 31.4 (26-34) pg MCHC 33.0 (32-36) g/dl RDW 15.6 H (11.5-14.5) % Plt Count 272 (150-375) k/mm3 MPV 10.7 H (7.4-10.4) fl Immature Gran % (Auto) 0.4 (0-0.5) % Neut % (Auto) 61.6 (45.5-73.1) % Lymph % (Auto) 22.1 (18.3-44.2) % [place] % (Auto) 12.5 H (2.6-8.5) % Eos % (Auto) 2.9 (0-4.4) % Baso % (Auto) 0.5 (0.2-1.2) % Lymph # (Auto) 2.13 (0.9-3.2) K/mm3 [place] # (Auto) 1.2 H (0.1-0.6) K/mm3 Eos # (Auto) 0.3 (0-0.3) K/mm3 Baso # (Auto) 0.1 (0.0-0.1) K/mm3 Abs Immat Gran (auto) 0.04 H (0.00-0.031) K/mm3 Absolute Neuts (auto) 5.9 (1.3-6.7) K/mm3 Absolute Nucleated RBC 0.000 (0.0-0.012) K/mm3 Nucleated RBC % 0.0 (0.0-0.2) % PT 14.1 (11.1-14.7) Seconds INR 1.1 APTT 47.7 H (22.3-36.8) Seconds Sodium 136 L (137-145) mmol/L Potassium 4.3 (3.4-5.0) mmol/L Chloride 105 (98-107) mmol/L Carbon Dioxide 22 (22-30) mmol/L Anion Gap 9 (4-12) mmol/L BUN 22 H D (9-20) mg/dL Creatinine 1.50 1.40 H (0.8-1.5) mg/dL Estim Creat Clear Calc 47 51 ml/min Estimated GFR 47 L 51 L (59 - ) Glucose 159 H (65-110) mg/dL POC Capillary Glucose 183 H (65-105) mg/dl Lactic Acid Pending Calcium 8.8 (8.4-10.2) mg/dL Magnesium 2.0 (1.6-2.3) mg/dL Total Bilirubin 0.3 (0.2-1.3) mg/dL AST 14 L (17-59) U/L ALT 13 (6-50) U/L Alkaline Phosphatase 53 (38-126) U/L Troponin I < 0.012 (0.000-0.034) ng/mL Total Protein 8.0 (6.3-8.2) g/dL Albumin 4.3 (3.5-5.1) g/dL Urine Color (Yellow) Urine Appearance (Clear) Urine pH (5.0-9.0) Ur Specific [place] (1.001-1.035) Urine Protein (Negative) mg/dL Urine Glucose (UA) (Negative) mg/dL Urine Ketones (Negative) mg/dL Ur Blood (Man) (Negative) Urine Nitrate (Negative) Urine Bilirubin (Negative) Urine Urobilinogen (<2.0) mg/dL Leukocyte Esterase Rfl (Negative) STEVEN/UL 04/18/24 Range/Units 00:30 WBC (4.5-10.0) K/mm3 RBC (4.6-6.20) M/mm3 Hgb (14.0-18.0) g/dL Hct (42.0-52.0) % MCV (80-100) fl MCH (26-34) pg MCHC (32-36) g/dl RDW (11.5-14.5) % Plt Count (150-375) k/mm3 MPV (7.4-10.4) fl Immature Gran % (Auto) (0-0.5) % Neut % (Auto) (45.5-73.1) % Lymph % (Auto) (18.3-44.2) % [place] % (Auto) (2.6-8.5) % Eos % (Auto) (0-4.4) % Baso % (Auto) (0.2-1.2) % Lymph # (Auto) (0.9-3.2) K/mm3 [place] # (Auto) (0.1-0.6) K/mm3 Eos # (Auto) (0-0.3) K/mm3 Baso # (Auto) (0.0-0.1) K/mm3 Abs Immat Gran (auto) (0.00-0.031) K/mm3 Absolute Neuts (auto) (1.3-6.7) K/mm3 Absolute Nucleated RBC (0.0-0.012) K/mm3 Nucleated RBC % (0.0-0.2) % PT (11.1-14.7) Seconds INR APTT (22.3-36.8) Seconds Sodium (137-145) mmol/L Potassium (3.4-5.0) mmol/L Chloride (98-107) mmol/L Carbon Dioxide (22-30) mmol/L Anion Gap (4-12) mmol/L BUN (9-20) mg/dL Creatinine (0.8-1.5) mg/dL Estim Creat Clear Calc ml/min Estimated GFR (59 - ) Glucose (65-110) mg/dL POC Capillary Glucose (65-105) mg/dl Lactic Acid Calcium (8.4-10.2) mg/dL Magnesium (1.6-2.3) mg/dL Total Bilirubin (0.2-1.3) mg/dL AST (17-59) U/L ALT (6-50) U/L Alkaline Phosphatase (38-126) U/L Troponin I (0.000-0.034) ng/mL Total Protein (6.3-8.2) g/dL Albumin (3.5-5.1) g/dL Urine Color Yellow (Yellow) Urine Appearance Clear (Clear) Urine pH 7.0 (5.0-9.0) Ur Specific [place] 1.022 (1.001-1.035) Urine Protein Negative (Negative) mg/dL Urine Glucose (UA) Trace H (Negative) mg/dL Urine Ketones Negative (Negative) mg/dL Ur Blood (Man) Negative (Negative) Urine Nitrate Negative (Negative) Urine Bilirubin Negative (Negative) Urine Urobilinogen 0.2 (<2.0) mg/dL Leukocyte Esterase Rfl Negative (Negative) STEVEN/UL Discharge Plan Discharge Clinical Impression: Headache Patient Disposition: Home, Self-Care Condition: Stable Instructions: Antibiotic Form, Acute Headache (ED) Prescriptions: No Action famotidine 40 mg tablet PO olanzapine 20 mg tablet PO atorvastatin [Lipitor] 40 mg tablet 40 mg PO DAILY aspirin [Adult Low Dose Aspirin] 81 mg tablet,delayed release (DR/EC) 81 mg PO DAILY carvedilol [Coreg] 3.125 mg tablet 3.125 mg PO Q12H lisinopril [Zestril] 5 mg tablet 5 mg PO DAILY fenofibrate 160 mg tablet 160 mg PO DAILY carbamazepine 200 mg Tablet 200 mg PO Q8HR Qty: 90 0RF insulin glargine [Lantus Solostar U-100 Insulin] 100 unit/mL (3 mL) insulin pen 45 unit SUBCUT HS Jardiance 10 mg tablet 10 mg PO DAILY Qty: 90 0RF Follow-up/Referrals: Evangelina Lazo DO [Primary Care Provider] - Time of Disposition: 00:58
[2024-04-18 00:59] LABS: Lactic Acid Reflex 0.9 mmol/L (0.7-2.0)
== END 2024-04-18 01:35 | disposition home or self-care (01) ==
PROVIDERS: Emergency Provider Emergency Medicine; PCP Family Medicine
DX: R51.9 Headache, unspecified (principal); I25.10 Atherosclerotic heart disease of native coronary artery without angina pectoris; I77.9 Disorder of arteries and arterioles, unspecified; J44.9 Chronic obstructive pulmonary disease, unspecified; E11.9 Type 2 diabetes mellitus without complications; G40.909 Epilepsy, unspecified, not intractable, without status epilepticus; D64.9 Anemia, unspecified; K21.9 Gastro-esophageal reflux disease without esophagitis; G47.33 Obstructive sleep apnea (adult) (pediatric); Z95.1 Presence of aortocoronary bypass graft; Z95.5 Presence of coronary angioplasty implant and graft; Z87.891 Personal history of nicotine dependence; Z87.442 Personal history of urinary calculi; Z89.412 Acquired absence of left great toe; Z89.411 Acquired absence of right great toe; Z79.4 Long term (current) use of insulin; Z79.84 Long term (current) use of oral hypoglycemic drugs; Z79.82 Long term (current) use of aspirin; Z79.899 Other long term (current) drug therapy
CPT/HCPCS: 36415; 70450; 70496; 70498; 71045; 80053; 81003; 82948; 83605; 83735; 84484; 85025; 85610; 85730; 93005; 96361; 96374; 96375; 99284; J0780; J1100; J1200; J7030; Q9967

== ENCOUNTER 2024-04-30 09:38 | Outpatient (CLI) | payer OTHER, SELFPAY ==
--- NOTE | 2024-04-30 09:54 | ECHO_ITS ---
Patient Info Name: Baldev Qiu Age: 63 years : 1960 Gender: Male Ht: 72 in Wt: 190 lbs BSA: 2.10 m2 HR: 85 bpm BP: 106 / 72 mmHg Technical Quality: Fair Exam Date: 04/30/2024 10:14 AM Exam Location: Echo Lab Patient Status: Outpatient Admit Date: 04/30/2024 Staff Ordering Physician: Cole Roland DO Chin Strap Maker: Lilly Reese RDCS Attending Provider: Cole Roland DO Referring Physician: Luan ROLAND; Exam Type: CA echo doppler color flow Study Info Indications Z125.810 - ATHEROSCLEROSIS OF CORONARY ARTHER BYPASS GRAFT Complete two-dimensional, color flow and Doppler transthoracic echocardiogram is performed. Strain analysis performed. Summary 1. Complete two-dimensional, color flow and Doppler transthoracic echocardiogram is performed. 2. Left ventricular chamber dimension is normal. 3. There is mildly increased left ventricular wall thickness. 4. Entire apex including inferoapex, apical lateral segments are akinetic. 5. Left ventricular systolic function is normal, estimated at 55-60%. 6. The left ventricular diastolic function is grade I diastolic dysfunction. 7. E/e' 10 is mildly elevated. 8. Global longitudinal strain is abnormal at -12.4%. 9. Left atrial chamber dimension is moderately enlarged. 10. There is mild aortic valve sclerosis. 11. There is trace mitral valve regurgitation. 12. No pulmonary hypertension, estimated pulmonary arterial systolic pressure is 27 mmHg. Left Ventricle Entire apex including inferoapex, apical lateral segments are akinetic. Global longitudinal strain is abnormal at -12.4%. E/e' 10 is mildly elevated. Left ventricular chamber dimension is normal. Left ventricular systolic function is normal, estimated at 55-60%. There is mildly increased left ventricular wall thickness. The left ventricular diastolic function is grade I diastolic dysfunction. Right Ventricle Right ventricular chamber dimension is normal. Right ventricular systolic function is normal. Left Atria Left atrial chamber dimension is moderately enlarged. Right Atria Right atrial chamber dimension is normal. Aortic Valve The aortic valve is trileaflet. There is mild aortic valve sclerosis. There is no aortic valve stenosis. There is no aortic valve regurgitation. Pulmonic Valve There is no pulmonic regurgitation. Mitral Valve There is no mitral valve stenosis. There is trace mitral valve regurgitation. Tricuspid Valve There is no tricuspid valve regurgitation. No pulmonary hypertension, estimated pulmonary arterial systolic pressure is 27 mmHg. Pericardium/Pleural There is no pericardial effusion. Inferior Vena Cava Normal inferior vena cava with >50% collapse upon inspiration consistent with normal right atrial pressure, 5 mmHg. Aorta The aortic root size at the sinus of Valsalva is normal. Left Ventricular Outflow Tract Name Value Normal LVOT 2D LVOT Diameter 2.0 cm LVOT Doppler LVOT Peak Gradient 4 mmHg LVOT Mean Gradient 2 mmHg LVOT VTI 20 cm LVOT VTI/AV VTI Ratio 0.9 LVOT Stroke Volume 63 ml LVOT CO 3.9 l/min LVOT CI 1.9 l/min/m2 Pulmonic Valve Name Value Normal RVOT Doppler RVOT Peak Gradient 2 mmHg PV Doppler PV Peak Gradient 6 mmHg Mitral Valve Name Value Normal MV Doppler MV Decel Terry 322 cm/s2 MV PHT 63 ms MV Area (PHT) 3.5 cm2 4.0-5.0 MV Diastolic Function MV E Peak Velocity 70 cm/s MV A Peak Velocity 105 cm/s MV E/A 0.7 MV Decel Time 219 ms Tricuspid Valve Name Value Normal TV Regurgitation Doppler TR Peak Velocity 235 cm/s TR Peak Gradient 22 mmHg Estimated PAP/RSVP RA Pressure 5 mmHg <=5 PA Systolic Pressure 27 mmHg <36 RV Systolic Pressure 27 mmHg <36 Aorta Name Value Normal Ascending Aorta Ao Root Diameter (MM) 3.4 cm Ao Root Diam Index (MM) 1.6 cm/m2 Aortic Valve Name Value Normal AV Doppler AV Peak Velocity 106 cm/s AV Peak Gradient 4 mmHg AV Mean Gradient 2 mmHg AV VTI 22 cm AV Area (Cont Eq VTI) 2.8 cm2 >=3.0 AV Area (Cont Eq Ramesh) 2.9 cm2 AV Regurgitation 2D LVOT Area 3.2 cm2 Ventricles Name Value Normal LV Dimensions 2D/MM IVS Diastolic Thickness (2D) 1.1 cm 0.6-1.0 IVS Diastole Thickness (MM) 0.6 cm 0.6-1.0 LVID Diastole (2D) 4.7 cm 4.2-5.8 LVID Diastole (MM) 6.0 cm 4.2-5.8 LVIW Diastolic Thickness (2D) 1.3 cm 0.6-1.0 LVIW Diastolic Thickness (MM) 1.0 cm 0.6-1.0 LVID Systole (2D) 3.5 cm 2.5-4.0 LVID Systole (MM) 4.3 cm 2.5-4.0 LVOT Diameter 2.0 cm LV Mass (2D Cubed) 212.27 g 88.00-224.00 LV Mass Index (2D Cubed) 101 g/m2 49-115 Relative Wall Thickness (2D) 0.55 LV Mass (MM Cubed) 187.46 g 88.00-224.00 LV Mass Index (MM Cubed) 89 g/m2 49-115 Relative Wall Thickness (MM) 0.34 LV Fractional Shortening/Ejection Fraction 2D/MM LV Fractional Shortening (2D) 27 % 25-43 LV Fractional Shortening (MM) 28 % 25-43 LV EF (MM Teicholz) 53 % 52-72 LV EF (2D Teicholz) 52 % 52-72 LV Diastolic Volume (4C MOD) 117 ml LV EF (4C MOD) 46 % LV Diastolic Volume (2C MOD) 116 ml LV EF (2C MOD) 57 % LV Diastolic Volume (BP MOD) 118 ml 62-150 LV Diastolic Volume Index (BP MOD) 56 ml/m2 34-74 LV Systolic Volume (BP MOD) 58 ml 21-61 LV Systolic Volume Index (BP MOD) 28 ml/m2 11-31 LV EF (BP MOD) 50 % 52-72 LV Diastolic Length (4C) 8.7 cm LV Systolic Length (4C) 8.2 cm LV Stroke Volume (4C MOD) 54 ml Atria Name Value Normal LA Dimensions LA Dimension (MM) 5.0 cm 3.0-4.1 LA Volume (4C A-L) 96 ml LA Volume (BP A-L) 92 ml RA Dimensions RA Area (4C) 18.7 cm2 <=18.0 EchoPAC Name Value Normal AutoEF LVCO_BiP_Q (Yavm7FLO) 3.9 l/min LVEF_BiP_Q (Eygu7UPD) 52 % LVSV_BiP_Q (Uxjn6OXX) 64 ml LVVED_BiP_Q (Nhsj8QZL) 122 ml LVVES_BiP_Q (Bhks3FMI) 58 ml HR_4Ch_Q (Bzkj3GIT) 62 bpm LVCO_4Ch_Q (Txdz5JUQ) 3.7 l/min LVEF_4Ch_Q (Dgxg9UOZ) 47 % LVLd_4Ch_Q (Fppl9VNG) 8.5 cm LVLs_4Ch_Q (Qgux0MQK) 7.7 cm LVSV_4Ch_Q (Nsup7CNT) 60 ml LVVED_4Ch_Q (Fswu4AFG) 127 ml LVVES_4Ch_Q (Rivl6GJY) 68 ml HR_2Ch_Q (Envv6IRN) 62 bpm LVCO_2Ch_Q (Yuti6NWZ) 4.1 l/min LVEF_2Ch_Q (Vskn1LSU) 57 % LVLd_2Ch_Q (Ftkr9PGL) 8.4 cm LVLs_2Ch_Q (Fvnp6GET) 7.4 cm LVSV_2Ch_Q (Fcvv6BZG) 66 ml LVVED_2Ch_Q (Qbnm2NNZ) 115 ml LVVES_2Ch_Q (Czop3ROM) 49 ml THOMAS AA peak sys SL (AWMA) 13.3 % AAS peak sys SL (AWMA) 5.3 % AI peak sys SL (AWMA) 13.5 % AL peak sys SL (AWMA) 10.1 % AP peak sys SL (AWMA) 14.3 % peak sys SL (AWMA) 6.3 % AVC (AWMA) 457 ms BA peak sys SL (AWMA) 13.7 % BAS peak sys SL (AWMA) 11.8 % BI peak sys SL (AWMA) 20.9 % BL peak sys SL (AWMA) 12.8 % BP peak sys SL (AWMA) 13.7 % BS peak sys SL (AWMA) 14.9 % G peak SL(A2C) (AWMA) 13.0 % G peak SL(A4C) (AWMA) 11.0 % G peak SL(APLAX) (AWMA) 13.4 % G peak SL(Avg) (AWMA) 12.5 % MA peak sys SL (AWMA) 16.8 % MAS peak sys SL (AWMA) 7.2 % MO peak sys SL (AWMA) 14.5 % ML peak sys SL (AWMA) 12.3 % MP peak sys SL (AWMA) 16.7 % MS peak sys SL (AWMA) 13.3 % Report Signatures
== END 2024-04-30 09:39 | disposition home or self-care (01) ==
LOC: ANHCARD 09:41
PROVIDERS: PCP Family Medicine; Visit Provider Internal Medicine Cardiovascular Disease
DX: I25.810 Atherosclerosis of coronary artery bypass graft(s) without angina pectoris (principal)
CPT/HCPCS: 93306

== ENCOUNTER 2024-05-24 23:41 | Emergency (ER) | payer OTHER, SELFPAY ==
--- NOTE | 2024-05-25 02:14 | PC.NURSE ---
3 calls for ed room, no answer
== END 2024-05-25 02:31 | disposition left against medical advice (07) ==
LOC: ANHED 05-25 02:27
PROVIDERS: PCP Family Medicine
DX: R41.82 Altered mental status, unspecified (principal)
CPT/HCPCS: 99199

== ENCOUNTER 2024-06-14 08:47 | Emergency (ER) | payer OTHER, SELFPAY ==
--- NOTE | ~2024-06-14 | US_ITS ---
EXAMINATION: US venous doppler [facility] DATE: 06/14/2024 11:00 INDICATION: Left lower limb swelling TECHNIQUE: Grayscale ultrasound images without and with compression and Doppler ultrasound images of the left lower extremity veins were obtained. COMPARISON: None. FINDINGS: The visualized portions of left common femoral vein, profunda (deep) femoral vein, femoral vein, popl iteal vein, peroneal veins, posterior tibial veins, gastrocnemius vein and greater saphenous vein out flow are patent. IMPRESSION: 1. No deep venous thrombosis in the left lower limb. Reviewed, dictated and finalized at location B. 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
--- NOTE | ~2024-06-14 | CT_ITS ---
EXAMINATION: CT brain wo con DATE: 06/14/2024 10:32 INDICATION: Fall TECHNIQUE: Computed tomography (CT) of the head was performed without intravenous contrast. Sagittal and coronal reconstructions were performed. The mA was adjusted according to patient size. Iterative reconstruction technique was employed. The dose-length product was 605.33 mGy-cm. COMPARISON: head CT dated 04/17/2024 and 10/13/2023 FINDINGS: No fracture. Multiple chronic infarcts largest in the right temporal occipital region with smaller in farcts in the left and right cerebellar hemispheres, right thalamus and left basal ganglia. No acute intracranial hemorrhage, acute infarction or abnormal extra axial fluid collection. There is mild sca ttered white matter hypoattenuation consistent with chronic small vessel ischemic disease. Mild ex va cuo dilation of the occipital horn of the right lateral ventricle. Ventricles are otherwise normal an d symmetric. No mass/mass effect. Intracranial calcified cerebral atherosclerosis is noted. The orbit s, paranasal sinuses and mastoid air cells are normal. IMPRESSION: 1. . No fracture or acute intracranial process. 2. Stable appearance of multiple chronic infarcts in the brain and mild scattered white matter hypoat tenuation consistent with chronic small vessel ischemic disease. Reviewed, dictated and finalized at location B. GATIONIST IMPRESSION: 1. . No fracture or acute intracranial process. 2. Stable appearance of multiple chronic infarcts in the brain and mild scatter ed white matter hypoattenuation consistent with chronic small vessel ischemic d isease.
--- NOTE | ~2024-06-14 | XR_ITS ---
EXAMINATION: XR pelvis 1-2V DATE: 06/14/2024 10:22 INDICATION: Fall TECHNIQUE: An anteroposterior view of the pelvis was obtained. COMPARISON: None. FINDINGS: Bone alignment is normal. No fracture or osteonecrosis. Mild osteoarthritis at the bilateral hip and sacroiliac joints. Atherosclerotic calcifications and a few prominent phleboliths in the pelvis. IMPRESSION: 1. Mild bilateral hip and sacral iliac osteoarthritis. No acute osseous abnormality. Reviewed, dictated and finalized at location B. 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 Mild bilateral hip and sacral iliac osteoarthritis. No acute osseous abnorma lity.
--- NOTE | ~2024-06-14 | CT_ITS ---
EXAMINATION: CT cervical spine wo con DATE: 06/14/2024 10:32 INDICATION: Neck injury. Fall. TECHNIQUE: Computed tomography (CT) of the cervical spine was performed without intravenous contrast. Automated exposure control and iterative reconstruction technique were employed. The dose-length pro duct was 462.67 mGy-cm. COMPARISON: CT cervical spine 10/20/2023 FINDINGS: There is mild emphysema. There is a 10 mm subcutaneous mass in the right posterior neck, li alfa a sebaceous cyst. There is 9 degrees levocurvature of cervicothoracic spine. There is developmen carmen anterior and posterior fusion at C2-C3. There is moderately decreased disc height at C3-C4 and mi ldly decreased disc height at C6-C7. The following disc levels are specifically discussed: C2-C3: There is no uncovertebral joint hypertrophy. There is no facet joint hypertrophy. There is no neural foraminal stenosis. There is no central canal stenosis. C3-C4: There is moderate right and severe left uncovertebral joint osteoarthritis. There is severe bi lateral facet joint osteoarthritis. There is mild right and moderate left neural foraminal stenosis. There is mild central canal stenosis. C4-C5: There is no uncovertebral joint osteoarthritis. There is mild bilateral facet joint osteoarthr itis. There is no neural foraminal stenosis. There is no central canal stenosis. C5-C6: There is mild right uncovertebral joint osteoarthritis. There is no facet joint osteoarthritis . There is no neural foraminal stenosis. There is no central canal stenosis. C6-C7: There is no uncovertebral joint osteoarthritis. There is no facet joint osteoarthritis. There is no neural foraminal stenosis. There is no central canal stenosis. C7-T1: There is no uncovertebral joint osteoarthritis. There is mild bilateral facet joint osteoarthr itis. There is no neural foraminal stenosis. There is no central canal stenosis. IMPRESSION: 1. No fracture. 2. Moderate cervical spondylosis. Reviewed, dictated and finalized at location A. CTOR OF GUIDANCE
--- NOTE | ~2024-06-14 | XR_ITS ---
EXAMINATION: XR knee LT min 4V DATE: 06/14/2024 10:22 INDICATION: Left knee pain. Fall. TECHNIQUE: 4 views of left knee were obtained. COMPARISON: Left knee radiographs 09/23/2021 FINDINGS: Alignment is normal. There is a nondisplaced fracture involving intercondylar eminence and lateral tibial plateau. There is mild tricompartmental osteoarthritis. There is a moderate-sized knee joint effusion. IMPRESSION: 1. Nondisplaced fracture involving intercondylar eminence and lateral tibial plateau. 2. Mild left knee osteoarthritis. 3. Moderate-sized left knee joint effusion. Reviewed, dictated and finalized at location A. ER AND SORTER LOAD AND UNLOAD IMPRESSION: 1. Nondisplaced fracture involving intercondylar eminence and lateral tibial pl ateau. 2. Mild left knee osteoarthritis. 3. Moderate-sized left knee joint effusion.
--- NOTE | ~2024-06-14 | XR_ITS ---
EXAMINATION: XR chest 2V DATE: 06/14/2024 10:21 INDICATION: Fall. TECHNIQUE: Frontal and lateral views of the chest were obtained. COMPARISON: Chest view 04/17/2024 FINDINGS: There is no pneumonia, pleural effusion, or pneumothorax. The heart size is normal. Median sternotomy wires and mediastinal surgical clips are seen, likely from prior coronary artery bypass gr afting. IMPRESSION: 1. No acute cardiopulmonary disease. Reviewed, dictated and finalized at location A. EAU DEVELOPER
[2024-06-14 08:52] VITALS: BP 113/65; PULSE 88; RESP 20; TEMP 36.6; O2SAT 99
--- NOTE | 2024-06-14 09:54 | ED_ITS ---
HPI - Extremity Injury (Lower) General Chief Complaint: Extremity Injury, Lower Stated Complaint: fall, L leg pain Time Seen by Provider: 06/14/24 09:55 Focused HPI: This is a 63-year-old male that presents to the emergency department after a fall today with left knee pain. Reports swelling in the lower extremity. Unsure how he fell. He does not believe he hit his head. The pain in his knees is causing it to be difficult for him to ambulate. This happened 2 days ago. GENERAL: Well-appearing, well-nourished, and in no acute distress. HEAD: Normocephalic, atraumatic. CHEST: No respiratory distress. HEART: Regular rate NEURO: ?Alert and oriented x3. EXTREMITY: Left lower extremity 1+ pitting edema. 1+ DP pulses bilaterally. Normal sensation. Normal range of motion Patient screened in triage and initial orders placed.? ?Additional care and disposition to be based upon?diagnostic testing and treatment. Related Data Home Medications ?Medication ?Instructions ?Recorded ?Confirmed ?Last Taken ?Type aspirin 81 mg tablet,delayed 81 mg PO DAILY 09/05/21 06/05/24 09/16/23 History release (Adult Low Dose Aspirin) carvedilol 3.125 mg tablet (Coreg) 3.125 mg PO Q12H 09/05/21 06/05/24 09/16/23 History lisinopril 5 mg tablet (Zestril) 5 mg PO DAILY 09/05/21 06/05/24 09/16/23 History insulin glargine 100 unit/mL (3 45 unit subcut HS 03/11/22 06/05/24 09/16/23 History mL) subcutaneous pen (Lantus Solostar U-100 Insulin) famotidine 40 mg tablet mg PO 02/24/24 06/05/24 Unknown History olanzapine 20 mg tablet mg PO 02/24/24 06/05/24 Unknown History Allergies Allergy/AdvReac Type Severity Reaction Status Date / Time metoclopramide AdvReac Mild Vomiting Verified 06/05/24 13:21 Review of Systems Review of Systems: CONSTITUTIONAL: Denies fever MUSCULOSKELETAL: Reports joint pain, and myalgia. NEUROLOGIC: Denies numbness All systems reviewed & are unremarkable except as noted in HPI and below PMFSH Past Medical History Medical History Swelling of lower extremity Diabetic ulcer of right heel Osteomyelitis of toe of right foot Personal history of noncompliance with medical treatment and regimen Encounter for postoperative care ILANA on CPAP Peripheral arterial occlusive disease Diabetic foot ulcer Chronic anemia Seizure disorder Gastroesophageal reflux disease Type 2 diabetes mellitus Cerebrovascular accident (06/2021) It sounds as though he had an ischemic stroke (symptoms include vertigo and visual changes) with hemorrhagic conversion. Chronic obstructive pulmonary disease Kidney stones Hypertension Coronary artery disease Status post bifurcation stents to the LAD and diagonal in 2006, stent to the LAD for in-stent restenoses in 2009, and CABG in April 2021 at [facility]. Surgical History Surgical History History of amputation of left great toe History of amputation of right great toe 03/11/23 History of myringoplasty History of inguinal hernia repair times 2 History of coronary artery bypass graft (04/2021) Done at [facility]. History of percutaneous coronary intervention Bifurcation stents to LAD and diagonal in 2006. Stent to the LAD in 2009. (three stents) Family History Family History Mother Family history of diabetes mellitus in first degree relative Other Diabetes mellitus Hypertension Social History Social History Social History: The patient lives with his and 2 sons in [place]. His sons help him out. 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 He smoked about a pack a day for nearly 45 years and he quit at the time of his bypass in April 2021. He was a heavier drinker in his younger years. No illicit substance use. Surrogate medical decision maker: Shahrzad Qiu, . Code status: Full code. Smoking packs per day: 1.5 Smoking cigarettes per day: 30.0 Years smoked: 30 Smoking pack-years: 45.00 Smoking status: Former smoker Second hand tobacco smoke exposure: Yes Alcohol intake: never Substance use: never Substance use type: does not use Do You Feel Safe in your Home?: Yes Lack of Transportation: No Lack of Food: Never True Current Housing: I Have Housing Concerned About Future Housing: No Difficulty Paying Gas/Electric Bills: No Difficulty Paying for Meds: No Currently Unemployed: No Education: High School Diploma/GED Difficulty w/ Childcare or Family Care: No Spiritual care concerns: No Exam Narrative: GENERAL: Well-appearing, well-nourished, and in no acute distress. HEAD: Normocephalic, atraumatic. EYES: EOMI. CHEST: Clear to auscultation. No respiratory distress. No wheezes rales or rhon chi HEART: Regular rate and rhythm. No murmur heard. Normal peripheral pulses. EXTREMITIES: Normal range of motion. Left lower extremity with 1+ pitting edema. No overlying redness. Normal peripheral pulses SKIN: Warm, dry, no rash. NEURO: No focal deficits. Alert and oriented x3. PSYCH: Normal mood and affect Course Course Emergency Course: Patient did well with ambulation with walker, will be discharged for outpatient follow-up Vital Signs Vital signs: Vital Signs Temperature 97.8 F 06/14/24 08:52 Pulse Rate 88 06/14/24 08:52 Respiratory Rate 20 06/14/24 08:52 Blood Pressure 113/65 06/14/24 08:52 Pulse Oximetry 99 06/14/24 08:52 Oxygen Delivery Room Air 06/14/24 08:52 Temperature 98.1 F 06/14/24 13:51 Pulse Rate 71 06/14/24 13:51 Respiratory Rate 16 06/14/24 13:51 Blood Pressure 115/72 06/14/24 13:51 Pulse Oximetry 99 06/14/24 13:51 Oxygen Delivery Room Air 06/14/24 08:52 MDM - Extremity Injury (Lower) MDM Narrative Medical decision making narrative: Patient presents to the emergency department after a fall 2 days ago with left knee injury. Patient did not remember what caused him to fall. His vitals are stable. He is neurologically intact at his baseline. CT brain, cervical spine without acute findings. Chest and pelvis x-rays without acute posttraumatic findings. Left knee x-ray shows a nondisplaced tibial plateau fracture. Patient did well with ambulation with walker, will be discharged for outpatient follow- up. They were given warnings to return to the ER Differential Diagnosis Differential diagnosis: Likely acute internal derangement of knee and other (tibial plateau fracture) Imaging Data Radiologist's impression: ITS Impressions Chest X-Ray 06/14/24 10:23 IMPRESSION: 1. No acute cardiopulmonary disease. Knee X-Ray 06/14/24 10:25 IMPRESSION: 1. Nondisplaced fracture involving intercondylar eminence and lateral tibial plateau. 2. Mild left knee osteoarthritis. 3. Moderate-sized left knee joint effusion. Pelvis X-Ray 06/14/24 10:30 IMPRESSION: 1. Mild bilateral hip and sacral iliac osteoarthritis. No acute osseous abnormality. Head CT 06/14/24 10:32 IMPRESSION: 1. . No fracture or acute intracranial process. 2. Stable appearance of multiple chronic infarcts in the brain and mild scattered white matter hypoattenuation consistent with chronic small vessel ischemic disease. Cervical Spine CT 06/14/24 10:34 IMPRESSION: 1. No fracture. 2. Moderate cervical spondylosis. Venous Doppler Study 06/14/24 11:01 IMPRESSION: 1. No deep venous thrombosis in the left lower limb. Critical Care Time Critical Care Time Critical Care Time: No Discharge Plan Discharge Clinical Impression: Fracture of tibial plateau Qualifiers: Encounter type: initial encounter Fracture type: closed Laterality: left Qualified Code(s): S82.142A - Displaced bicondylar fracture of left tibia, initial encounter for closed fracture Patient Disposition: Home, Self-Care Condition: Stable Instructions: Leg Fracture (ED) Additional Instructions: Return to the ER if you experience fever, redness and swelling of your leg, weakness, numbness, or any other symptoms that are concerning to you Rest, use ice, take anti-inflammatories (Aleve, Ibuprofen, Naproxen, etc) or Tylenol as needed for pain as well as prescribed pain medication as needed. This medication can make you sleepy, take caution if you take this Follow up with orthopedics for further care Patient Language: Lithuanian Prescriptions: New hydrocodone-acetaminophen 5-325 mg tablet 1 tablet PO Q6H PRN (Reason: pain) Qty: 14 0RF No Action famotidine 40 mg tablet PO olanzapine 20 mg tablet PO aspirin [Adult Low Dose Aspirin] 81 mg tablet,delayed release (DR/EC) 81 mg PO DAILY carvedilol [Coreg] 3.125 mg tablet 3.125 mg PO Q12H lisinopril [Zestril] 5 mg tablet 5 mg PO DAILY carbamazepine 200 mg Tablet 200 mg PO Q8HR Qty: 90 0RF insulin glargine [Lantus Solostar U-100 Insulin] 100 unit/mL (3 mL) insulin pen 45 unit SUBCUT HS Jardiance 10 mg tablet 10 mg PO DAILY Qty: 90 0RF atorvastatin [Lipitor] 40 mg tablet 40 mg PO DAILY Qty: 90 1RF fenofibrate 160 mg tablet 160 mg PO DAILY Qty: 90 1RF Follow-up/Referrals: Deandre Greenfield MD [Physician] - Evangelina Lazo DO [Primary Care Provider] -
--- NOTE | 2024-06-14 13:29 | PC.NURSE ---
Pt ambulated with walker per request by Deacon MOODY. Pt did very well, able to stand with minimal assist, ambulated down ornelas and back with stand-by assistance. Pt denied any pain, had steady gait entire time. Provider witnessed this as well.
[2024-06-14 13:51] VITALS: BP 115/72; PULSE 71; RESP 16; TEMP 36.7; O2SAT 99
--- OUTSIDE RECORDS SUMMARY | 2024-06-21 19:49 | XMS_ITS | Patient Health Summary ---
Author Organization [facility] Address [address] [place] [address] Care Team Providers Care Parks Recreation Coordinator Name Role Phone Unavailable Primary Care Provider Unavailabl e Note from [facility],non-owned Affiliates and Associated Physician Practices is amultiple site organization consisting of ambulatory clinics and hospital sitesin [place], [place], [place] and [place]. This disclosure is being madepursuant to the Care Everywhere program and may not contain all information available regarding this patient. Last updated 18.[facility] Allergies * metaclopramide [Other](Nausea and/or Vomiting) -Low Criticality Medications * Be aware that medications may not be up to date on this document. Alwaysverify current medications with the patient. * carvedilol (COREG) 3.125 MG tablet Take 3.125 mg by mouth 2 times daily with morning and evening meal * albuterol HFA (PROVENTIL; VENTOLIN; PROAIR) 108 (90 Base) MCG/ACT inhaler Inhale 2 puffs by mouth every 6 hours as needed * insulin glargine (Lantus/Semglee) 100 units/ml injection Inject 60 Units subcutaneously at bedtime * empagliflozin (JARDIANCE) 10 MG tablet Take 10 mg by mouth once daily * pantoprazole EC (PROTONIX) 40 MG tablet Take 40 mg by mouth once daily * atorvastatin (LIPITOR) 40 MG tablet Take 40 mg by mouth at bedtime * lisinopril (PRINIVIL;ZESTRIL) 5 MG tablet(Started 09/03/2021) Take 1 (one) tablet by mouth once daily 4 refills by 09/03/2022 Active Problems Problem Noted Date Diagnosed Date History of ischemic stroke 09/02/2021 Diabetes mellitus 09/02/2021 Acute cystitis without hematuria 09/02/2021 Hypokalemia 09/02/2021 Cerebral brain hemorrhage 09/01/2021 Cerebrovascular accident (CVA) 07/27/2021 Immunizations * PNEUMOCOCCAL PPSV23(Given 06/19/2015) * TDAP (7yrs+)(Given 06/20/2010) Social History Tobacco Use Types Packs/Day Years Used Date Smoking Tobacco: Former Smokeless Tobacco: Never Alcohol Use Standard Drinks/Week Comments Not Currently 0 (1 standard drink = 0.6 oz pur e alcohol) AUDIT-C Answer Date Recorded Q1: How often do you have a drink containing alc ohol? Monthly or less 09/01/2021 Average Number of Drinks Not on file 022 Frequency of Binge Drinking Not on file 08/18 PHQ-2 Answer Date Recorded PHQ2 TOTAL SCORE 0 09/02/2021 Hunger Vital Sign Answer Date Recorded Within the past 12 months, y ou worried that your food would run out before you got the money to buy more. Sometimes true Within the past 12 months, t he food you bought just didn't last and you didn't have money to get more. Sometimes true Sex and Gender Information Value Date Recorded Sex Assigned at Not on file Gender Identity Not on file Sexual Orientation Not on file Last Filed Vital Signs Vital Sign Reading Time Taken Comments Blood Pressure 107/71 09/03/2021 11:51 AM CDT Pulse 80 09/03/2021 11:51 AM CDT Temperature 36.9 ??C (98.4 ??F) 09/03/2021 11:51 AM C DT Respiratory Rate 18 09/03/2021 11:51 AM CDT Oxygen Saturation 97% 09/03/2021 11:51 AM CDT Inhaled Oxygen Concentration - - Weight 80.9 kg (178 lb 6.4 oz) 09/01/2021 9:00 P M CDT Height 180.3 cm (5' 11 ) 09/01/2021 10:57 PM CDT Body Mass Index 24.88 09/01/2021 9:00 PM CDT Procedures * CARDIAC EKG ORDER(Performed 09/08/2021) * GLUCOSE - POINT OF CARE(Performed 09/03/2021) * GLUCOSE - POINT OF CARE(Performed 09/03/2021) * HEMOGLOBIN A1C(Performed 09/03/2021) Performed for Cerebral brain hemorrhage (HCC) * PT-INR [facility](Performed 09/03/2021) Performed for Cerebral brain hemorrhage (HCC) * BASIC METABOLIC PANEL (CALCIUM TOTAL)(Performed 09/03/2021) Performed for Cerebral brain hemorrhage (HCC) * CBC W/O DIFFERENTIAL(Performed 09/03/2021) Performed for Cerebral brain hemorrhage (HCC) * GLUCOSE - POINT OF CARE(Performed 09/02/2021) * GLUCOSE - POINT OF CARE(Performed 09/02/2021) * CT BRAIN STROKE(Performed 09/02/2021) Performed for Cerebrovascular accident (CVA), unspecified mechanism (HCC) * GLUCOSE - POINT OF CARE(Performed 09/02/2021) * GLUCOSE - POINT OF CARE(Performed 09/02/2021) * ECHO COMPLETE(Performed 09/02/2021) Performed for Cerebrovascular accident (CVA), unspecified mechanism (HCC), Cerebral brain hemorrhage (HCC) * GLUCOSE - POINT OF CARE(Performed 09/02/2021) * GLUCOSE - POINT OF CARE(Performed 09/02/2021) * MRI ANGIO NECK W CONTRAST(Performed 09/02/2021) Performed for Cerebrovascular accident (CVA), unspecified mechanism (HCC) * MRI BRAIN WO CONTRAST(Performed 09/02/2021) Performed for Cerebrovascular accident (CVA), unspecified mechanism (HCC) * TROPONIN I(Performed 09/02/2021) Performed for Cerebral brain hemorrhage (HCC) * URINALYSIS REFLEX TO MICROSCOPIC NO CULTURE(Performed 09/02/2021) Performed for Cerebral brain hemorrhage (HCC) * URINE DRUG SCREEN IMMUNOASSAY(Performed 09/02/2021) Performed for Cerebral brain hemorrhage (HCC) * PHOSPHORUS BLOOD(Performed 09/02/2021) Performed for Cerebral brain hemorrhage (HCC) * MAGNESIUM BLOOD(Performed 09/02/2021) Performed for Cerebral brain hemorrhage (HCC) * TROPONIN I(Performed 09/02/2021) Performed for Cerebral brain hemorrhage (HCC) * PT-INR [facility](Performed 09/02/2021) Performed for Cerebral brain hemorrhage (HCC) * BASIC METABOLIC PANEL (CALCIUM TOTAL)(Performed 09/02/2021) Performed for Cerebral brain hemorrhage (HCC) * CBC W/O DIFFERENTIAL(Performed 09/02/2021) Performed for Cerebral brain hemorrhage (HCC) * COMPREHENSIVE METABOLIC PANEL(Performed 09/01/2021) Performed for Cerebral brain hemorrhage (HCC) * CBC W/O DIFFERENTIAL(Performed 09/01/2021) Performed for Cerebral brain hemorrhage (HCC) * PHOSPHORUS BLOOD(Performed 09/01/2021) Performed for Cerebral brain hemorrhage (HCC) * MAGNESIUM BLOOD(Performed 09/01/2021) Performed for Cerebral brain hemorrhage (HCC) * TROPONIN I(Performed 09/01/2021) Performed for Cerebral brain hemorrhage (HCC) * EKG 12-LEAD(Performed 09/01/2021) Performed for Cerebrovascular accident (CVA), unspecified mechanism (HCC), Cerebral brain hemorrhage (HCC) * CT ANGIO BRAIN(Performed 09/01/2021) Performed for Cerebrovascular accident (CVA), unspecified mechanism (HCC) * CT BRAIN STROKE(Performed 09/01/2021) Performed for Cerebrovascular accident (CVA), unspecified mechanism (HCC) Results * CARDIAC EKG ORDER (09/08/2021 2:17 PM CDT) Narrative 09/08/2021 2:17 PM CDT Ordered by an unspecified provider. Scanned Document CARDIAC SERVICES ORD ERABLES * (ABNORMAL) GLUCOSE - POINT OF CARE (09/03/2021 11:49 AM CDT) Only the most recent of8 resultswithin the time period is included. [facility] Glucose WB/POC 197(H) 70 - 115 mg/dL 09/03/2021 11:53 AM CDT [facility] Specimen Type Venous 09/03/2021 11:53 AM CDT [facility] Blood BLOOD SPECIMEN / Unknown 09/03/2021 11:49 AM CDT 09/03/2021 11:53 AM CDT Jeremy Palomino MD LAB - POINT OF CARE ORDERABLES [facility] [address] [place] [address], [facility] [phone] * PT-INR [facility] (09/03/2021 2:48 AM CDT) Only the most recent of2 resultswithin the time period is included. PT 13.4 12.1 - 14.8 Seconds 09/03/2021 3:20 AM [facility] INR 1.0 See Comment 09/03/2021 3:20 AM [facility] Comment:The suggested therap eutic range for standard coumadin (warfarin) therapy is an INR of 2.0-3.0. For high-risk patients (Mechanical Mitral Valve Prosthesis, etc.), the suggested prophylactic therapeutic range is an INR of 2.5-3.5. Blood BLOOD SPECIMEN / Unknown Lab Venipuncture / Unknown 09/03/2021 2:48 AM CDT 09/03/2021 2:58 AM CDT Jeremy Palomino MD LAB - COAGULATION O RDERABLES [facility] [address] [place] [address], [facility] [phone] * (ABNORMAL) HEMOGLOBIN A1C (09/03/2021 2:48 AM CDT) Hemoglobin A1c 11.5(H) <=5.6 % 09/03/2021 10:28 AM [facility] Estimated Average Glucose 283 mg/dL 09/03/2021 10:28 AM [facility] Comment: HbA1c Interpretation: Normal : < 5.7% Pre-diabetes: 5.7-6.4% Diabetes: Equal to or greater than 6.5% Test results diagnostic of diabetes should be repeated for confirmation. Treatment target values recommended by ADA and other clinical organizations should be used to evaluate metabolic control in patients. Reference: [place] [employer], Standards of Care in Diabetes -2020 In patients 70 years and older consider HbA1c target range of 7.0-7.5% (Reference: Sam Benson et al. JAMDA. 2012) The Sebia assay for the measurement of HbA1c is a National Glycohemoglobin Standardization Program (NGSP) certified method. Blood BLOOD SPECIMEN / Unknown Lab Venipuncture / Unknown 09/03/2021 2:48 AM CDT 09/03/2021 3:04 AM CDT Jeremy Palomino MD LAB - CHEMISTRY ORD ERABLES [facility] [address] [place] [address], [facility] [phone] * (ABNORMAL) CBC W/O DIFFERENTIAL (09/03/2021 2:48 AM CDT) Only the most recent of3 resultswithin the time period is included. WBC 9.9 3.5 - 10.5 10? 3 /uL 09/03/2021 3:13 AM [facility] RBC 3.76(L) 4.30 - 5.70 10? 6 /uL 09/03/2021 3:13 AM [facility] Hemoglobin 11.4(L) 12.0 - 17.6 g/dL 09/03/2021 3:13 AM [facility] Hematocrit 34.8(L) 35.2 - 51.7 % 09/03/2021 3:13 AM [facility] MCV 92.6 80.7 - 98.3 fL 09/03/2021 3:13 AM [facility] MCH 30.3 26.7 - 34.0 pg 09/03/2021 3:13 AM [facility] MCHC 32.8 30.8 - 35.9 g/dL 09/03/2021 3:13 AM [facility] Platelet Count 287 150 - 400 10? 3 /uL 09/03/2021 3:13 AM [facility] RDW-SD 46.2 36.0 - 50.0 fL 09/03/2021 3:13 AM [facility] RDW-CV 13.6 11.2 - 14.8 % 09/03/2021 3:13 AM [facility] MPV 11.3 9.4 - 12.9 fL 09/03/2021 3:13 AM [facility] nRBC Absolute 0.00 0 10? 3 /uL 09/03/2021 3:13 AM [facility] nRBC Auto 0.0 0 /100 WBC 09/03/2021 3:13 AM [facility] Blood BLOOD SPECIMEN / Unknown Lab Venipuncture / Unknown 09/03/2021 2:48 AM CDT 09/03/2021 3:04 AM CDT Jeremy Palomino MD LAB - HEMATOLOGY OR DERABLES [facility] [address] [place] [address], [facility] [phone] * (ABNORMAL) BASIC METABOLIC PANEL (CALCIUM TOTAL) (09/03/2021 2:48 AM CDT) Only the most recent of2 resultswithin the time period is included. BUN 7 7 - 26 mg/dL 09/03/2021 3:40 AM [facility] Creatinine 0.68(L) 0.71 - 1.16 mg/dL 09/03/2021 3:40 AM [facility] Sodium 138 136 - 145 mmol/L 09/03/2021 3:40 AM [facility] Potassium 3.6 3.5 - 4.5 mmol/L 09/03/2021 3:40 AM [facility] Chloride 107 98 - 107 mmol/L 09/03/2021 3:40 AM [facility] CO2 20(L) 22 - 29 mmol/L 09/03/2021 3:40 AM [facility] Glucose 161(H) 70 - 115 mg/dL 09/03/2021 3:40 AM [facility] Calcium 8.5 8.4 - 10.2 mg/dL 09/03/2021 3:40 AM [facility] Anion Gap 15 8 - 18 09/03/2021 3:40 AM [facility] BUN/Creatinine Ratio 10 7 - 23 09/03/2021 3:40 AM [facility] Osmolality Calculated 287 270 - 300 mOsm/kg 09/03/2021 3:40 AM [facility] eGFR by CKD-EPI >90 >=90 mL/min/1.7 3 m2 09/03/2021 3:40 AM [facility] Blood BLOOD SPECIMEN / Unknown Lab Venipuncture / Unknown 09/03/2021 2:48 AM CDT 09/03/2021 3:04 AM CDT Jeremy Palomino MD LAB - CHEMISTRY ORD ERABLES [facility] [address] [place] [address], [facility] [phone] * CT BRAIN STROKE (09/02/2021 2:25 PM CDT) Only the most recent of2 resultswithin the time period is included. Anatomical Region Laterality Modality Head Computed Tomogra phy 09/02/2021 2:39 PM CDT Impressions 09/02/2021 3:51 PM CDT IMPRESSION: 1.No significant change in the right occipital lobe infarction and hemorrhagic transformation. 2.No new acute intra or extra-axial hemorrhage identified. 3.No significant change in the size of the ventricles. 4.No obvious new territorial infarct identified. Dictated by Vini Reyes MD, [employer] I, Dr. VALENTINE CESPEDES have personally reviewed and interpreted this examination/study. This report was electronically signed by VALENTINE CESPEDES ??on 09/02/2021 3:51 PM . Narrative 09/02/2021 3:51 PM CDT EXAM: HEAD CT WITHOUT CONTRAST HISTORY: ??I63.9: Cerebrovascular accident (CVA), unspecified mechanism. COMPARISON: ??MRI brain 09/02/2021, CT brain 09/01/2021. TECHNIQUE: ??Using a multidetector scanner, axial images were acquired from the vertex through the skull base without contrast. Coronal reconstructed images were made from the axial data set. All CT scans at this location are performed using dose optimization techniques as appropriate to a performed exam including the following: automated exposure control, adjustment of the mA and/or kV according to patient size (this includes techniques or standardized protocols for targeted exams where dose is matched to indication/reason for exam), or use of iterative reconstruction technique. FINDINGS: No significant change in the right temporal and occipital lobe subacute infarction and the hemorrhage in the site of the infarction and the amount of hemorrhage in the right lateral ventricle. No new parenchymal or extra-axial hemorrhage is identified. Unchanged partial effacement of the posterior aspect of the right lateral ventricle. Otherwise, the thorne-white matter differentiation is normal. The basilar cisterns are patent. No mass effect or midline shift is seen. There is moderate vascular calcification of the carotid siphons and V4 segments of the bilateral vertebral arteries. No acute calvarial fracture is identified. The orbits appear normal. Mild mucosal thickening of the anterior ethmoidal air cells, remaining paranasal sinuses are clear The mastoid air cells are clear. No soft tissue abnormality is identified. Procedure Note Valentine Cesepdes MD - 09/02/2021 EXAM: HEAD CT WITHOUT CONTRAST HISTORY: I63.9: Cerebrovascular accident (CVA), unspecified mechanism. COMPARISON: MRI brain 09/02/2021, CT brain 09/01/2021. TECHNIQUE: Using a multidetector scanner, axial images were acquiredfrom the vertex through the skull base without contrast. Coronalreconstructed images were made from the axial data set. All CT scans at this location are performed using dose optimization techniques as appropriate to a performed exam including the following: automated exposure control, adjustment of the mA and/or kV according to patient size (this includes techniques or standardized protocols for targeted exams where dose is matched to indication/reason for exam), or use of iterative reconstruction technique. FINDINGS: No significant change in the right temporal and occipital lobe subacute infarction and the hemorrhage in the site of the infarction and theamount of hemorrhage in the right lateral ventricle. No new parenchymal or extra-axial hemorrhage is identified. Unchanged partial effacement ofthe posterior aspect of the right lateral ventricle. Otherwise, thegray-white matter differentiation is normal. The basilar cisterns are patent. No mass effect or midline shift isseen. There is moderate vascular calcification of the carotid siphons and V4 segments of the bilateral vertebral arteries. No acute calvarialfracture is identified. The orbits appear normal. Mild mucosal thickening of the anterior ethmoidal air cells, remaining paranasal sinuses are clear The mastoid air cells are clear. No soft tissue abnormality is identified. IMPRESSION: 1.No significant change in the right occipital lobe infarction and hemorrhagic transformation. 2.No new acute intra or extra-axial hemorrhage identified. 3.No significant change in the size of the ventricles. 4.No obvious new territorial infarct identified. Dictated by Vini Reyes MD, [employer], . VALENTINE CESPEDES have personally reviewed and interpreted this examination/study. This report was electronically signed by VALENTINE CESPEDES on09/02/2021 3:51 PM . Jeremy Palomino MD CT ORDERABLES * ECHO COMPLETE (09/02/2021 1:19 PM CDT) Anatomical Region Laterality Modality Chest Echo 09/02/2021 11:1 4 AM CDT Narrative Procedure Note Marcelina Barrios MD - 09/02/2021 Jeremy Palomino MD ECHOCARDIOGRAPHY RA DIANT * MRI ANGIO NECK W CONTRAST (09/02/2021 9:06 AM CDT) Anatomical Region Laterality Modality Head Magnetic Resonan ce 09/02/2021 11:1 1 AM CDT Impressions 09/02/2021 11:27 AM CDT FINDINGS-IMPRESSION: The aortic arch is unremarkable. The common and internal carotid arteries are widely patent without focal stenosis. The vertebral arteries are unremarkable other than mild narrowing at the left vertebral artery origin. This report was electronically signed by JAQUI CULP ??on 09/02/2021 11:27 AM . Narrative 09/02/2021 11:27 AM CDT MR angiography of the neck with intravenous contrast INDICATION: Subacute infarct in right [employer] territory. TECHNIQUE: MR angiogram of the neck was performed according to standard protocol after administration of 8 mL of Gadavist intravenously. MIP reformatted images were obtained. COMPARISON: CT angiogram of the brain from 09/01/2021 was reviewed. Procedure Note Jaqui Culp MD - 09/02/2021 MR angiography of the neck with intravenous contrast INDICATION: Subacute infarct in right [employer] territory. TECHNIQUE: MR angiogram of the neck was performed according to standard protocol after administration of 8 mL of Gadavist intravenously. MIP reformatted images were obtained. COMPARISON: CT angiogram of the brain from 09/01/2021 was reviewed. FINDINGS-IMPRESSION: The aortic arch is unremarkable. The common and internal carotidarteries are widely patent without focal stenosis. The vertebral arteries are unremarkable other than mild narrowing at the left vertebral artery origin. This report was electronically signed by JAQUI CULP on 09/02/2021 11:27 AM . Jeremy Palomino MD MR ORDERABLES * MRI BRAIN WO CONTRAST (09/02/2021 9:05 AM CDT) Anatomical Region Laterality Modality Head Magnetic Resonan ce 09/02/2021 11:0 4 AM CDT Impressions 09/02/2021 11:11 AM CDT IMPRESSION: 1.Subacute infarct in right [employer] territory with small-volume hemorrhagic transformation. Mild noncritical mass effect. 2.Intraventricular extension of hemorrhage. No hydrocephalus. 3.No significant change since CT from 09/01/2021. This report was electronically signed by JAQUI CULP ??on 09/02/2021 11:11 AM . Narrative 09/02/2021 11:11 AM CDT MRI BRAIN WITHOUT CONTRAST CLINICAL INFORMATION: I63.9: Cerebrovascular accident (CVA), unspecified mechanism TECHNIQUE: MRI of the brain was performed without intravenous contrast according to standard protocol. COMPARISON: CT head from 09/01/2021 was reviewed. FINDINGS: As seen on the CT scan, there is a moderate to large volume area of mildly restricted diffusion in the right temporal occipital lobe with gyral pattern hemorrhagic conversion, compatible with subacute infarct. Extension of hemorrhage is seen in the right occipital horn. There is mild noncritical mass effect. No other areas of acute or subacute infarction are seen. Small old infarcts is seen in the posterior limb of left internal capsule, anterior body of corpus callosum, left cerebral peduncle, right thalamus and bilateral cerebellar hemispheres. There are mild to moderate chronic microvascular ischemic changes in the supratentorial white matter and westley. Moderate generalized volume loss is noted with moderate dilation of the lateral and third ventricles. There is no extra axial fluid collection. The sella is unremarkable. Flow voids of major intracranial vessels are noted. The paranasal sinuses and mastoid air cells are clear. ??The orbits are unremarkable. Procedure Note Jaqui Culp MD - 09/02/2021 MRI BRAIN WITHOUT CONTRAST CLINICAL INFORMATION: I63.9: Cerebrovascular accident (CVA), unspecified mechanism TECHNIQUE: MRI of the brain was performed without intravenous contrast according to standard protocol. COMPARISON: CT head from 09/01/2021 was reviewed. FINDINGS: As seen on the CT scan, there is a moderate to large volume area ofmildly restricted diffusion in the right temporal occipital lobe with gyral pattern hemorrhagic conversion, compatible with subacute infarct. Extension of hemorrhage is seen in the right occipital horn. There ismild noncritical mass effect. No other areas of acute or subacute infarction are seen. Small old infarcts is seen in the posterior limb of left internalcapsule, anterior body of corpus callosum, left cerebral peduncle, right thalamus and bilateral cerebellar hemispheres. There are mild to moderate chronic microvascular ischemic changes in the supratentorial white matter and westley. Moderate generalized volume loss is noted with moderate dilationof the lateral and third ventricles. There is no extra axial fluid collection. The sella is unremarkable. Flow voids of major intracranial vessels are noted. The paranasal sinuses and mastoid air cells are clear. The orbits are unremarkable. IMPRESSION: 1.Subacute infarct in right [employer] territory with small-volume hemorrhagic transformation. Mild noncritical mass effect. 2.Intraventricular extension of hemorrhage. No hydrocephalus. 3.No significant change since CT from 09/01/2021. This report was electronically signed by JAQUI CULP on 09/02/2021 11:11 AM . Jeremy Palomino MD MR ORDERABLES * (ABNORMAL) TROPONIN I (09/02/2021 4:20 AM CDT) Only the most recent of3 resultswithin the time period is included. Troponin I 0.035(H) <0.032 ng/mL 09/02/2021 5:13 AM CDT [facility] Blood BLOOD SPECIMEN / Unknown Lab Venipuncture / Unknown 09/02/2021 4:20 AM CDT 09/02/2021 4:42 AM CDT Jeremy Palomino MD LAB - CHEMISTRY ORD ERABLES [address] [address] [phone] * (ABNORMAL) URINALYSIS REFLEX TO MICROSCOPIC NO CULTURE (09/02/2021 3:33 AM CDT) Color UA Yellow Straw, Yellow 09/02/2021 3:48 AM [facility] Clarity UA Clear Clear 09/02/2021 3:48 AM [facility] Specific [place] UA 1.047(H) 1.005 - 1.030 09/02/2021 3:48 AM [facility] pH UA 7.0 5.0 - 8.0 pH 09/02/2021 3:48 AM [facility] Protein UA Negative Negative 09/02/2021 3:48 AM [facility] Glucose UA 3+(A) Negative 09/02/2021 3:48 AM [facility] Ketone UA 1+(A) Negative 09/02/2021 3:48 AM [facility] Bilirubin UA Negative Negative 09/02/2021 3:48 AM [facility] Blood UA Negative Negative 09/02/2021 3:48 AM [facility] Nitrite UA Negative Negative 09/02/2021 3:48 AM [facility] Leukocyte Esterase 2+(A) Negative 09/02/2021 3:48 AM [facility] Urobilinogen UA Negative Negative mg/dL 09/02/2021 3:48 AM [facility] RBC UA 6-10(A) None Seen, 0-2, 3-5 /HPF 09/02/2021 3:48 AM [facility] WBC UA 6-10(A) None Seen, 0-5 /HPF 09/02/2021 3:48 AM [facility] Bacteria UA Trace(A) None /HPF 09/02/2021 3:48 AM [facility] Squamous Epithelial Cells UA 0-2 None Seen, 0-2, 3-5 /HPF 09/02/2021 3:48 AM [facility] Mucus UA 1+ /LPF 09/02/2021 3:48 AM [facility] Urine URINE SPECIMEN OBTAINED BY CLEAN CATCH PROCEDURE / Unknown Collection / Unknown 09/02/2021 3:33 AM CDT 09/02/2021 3:38 AM CDT Narrative [facility] - 09/02/2021 3:48 AM CDT Jeremy Palomino MD LAB - URINALYSIS OR DERABLES [facility] [address] [place] [address], [facility] [phone] * URINE DRUG SCREEN IMMUNOASSAY (09/02/2021 3:33 AM CDT) [facility] Amphetamines Screen Urine Negative Negative: < 1000 ng/mL 09/02/2021 3:57 AM CDT [facility] Barbiturates Screen Urine Negative Negative: < 200 ng/mL 09/02/2021 3:57 AM T [facility] Benzodiazepine Screen Urine Negative Negative: < 200 ng/mL 09/02/2021 3:57 AM T [facility] Opiates Urine Negative Negative: < 300 ng/mL 09/02/2021 3:57 AM CDT [facility] Cocaine Metabolites Urine Negative Negative: < 300 ng/mL 09/02/2021 3:57 AM [facility] Phencyclidine Screen Urine Negative Negative: < 25 ng/ml 09/02/2021 3:57 AM T [facility] Cannabinoids Screen Urine Negative Negative: <50 ng/mL 09/02/2021 3:57 AM T [facility] Methadone Screen Urine Negative Negative: < 300 ng/mL 09/02/2021 3:57 AM T [facility] Fentanyl Screen Urine Negative Negative: <1.0 ng/mL 09/02/2021 3:57 AM T [facility] Urine URINE / Unknown Collection / Unknown 09/02/2021 3:33 AM CDT 09/02/2021 3:38 AM CDT Narrative [facility] - 09/02/2021 3:57 AM CDT The Urine Toxicology Screening Panel does not screen for Propoxyphene, Meprobamate, Carisoprodol, Trazodone, [id number]-[id number] medications and/or volatiles (Acetone, Isopropanol, Methanol or Ethylene Glycol). Ethanol, Salicylate, Acetaminophen, Tricyclic Antidepressants and several therapeutic drugs may be individually assayed in serum or plasma specimen. Toxicology testing by the [facility] is an aid to medical diagnosis and treatment of patients. No documented chain of custody was maintained. Results are intended to be used for clinical purposes only. ? Jeremy Palomino MD LAB - URINE [employer] RY ORDERABLES Performing Organization Address [facility] de Phone Number [address] [address], [place] [phone] * PHOSPHORUS BLOOD (09/02/2021 2:08 AM CDT) Only the most recent of2 resultswithin the time period is included. [facility] Phosphorus 3.2 2.8 - 5.1 mg/dL 09/02/2021 3:17 AM CDT [facility] Blood BLOOD SPECIMEN / Unknown Lab Venipuncture / Unknown 09/02/2021 2:08 AM CDT 09/02/2021 2:49 AM CDT Jeremy Palomino MD LAB - CHEMISTRY ORD ERABLES Performing Organization Address [facility] de Phone Number [address] [address], [place] [phone] * MAGNESIUM BLOOD (09/02/2021 2:08 AM CDT) Only the most recent of2 resultswithin the time period is included. [facility] Magnesium 1.8 1.6 - 2.6 mg/dL 09/02/2021 3:17 AM [facility] Blood BLOOD SPECIMEN / Unknown Lab Venipuncture / Unknown 09/02/2021 2:08 AM CDT 09/02/2021 2:49 AM CDT Jeremy Palomino MD LAB - CHEMISTRY ORD ERABLES Performing Organization Address City/[facility]/ZIP Co de Phone Number [address] [phone] [phone] * (ABNORMAL) COMPREHENSIVE METABOLIC PANEL (09/01/2021 10:59 PM CDT) Pathologist [facility] BUN 7 7 - 26 mg/dL 09/02/2021 12:21 AM [facility] Creatinine 0.67(L) 0.71 - 1.16 mg/dL 09/02/2021 12:21 AM [facility] Sodium 140 136 - 145 mmol/L 09/02/2021 12:21 AM [facility] Potassium 3.6 3.5 - 4.5 mmol/L 09/02/2021 12:21 AM [facility] Chloride 105 98 - 107 mmol/L 09/02/2021 12:21 AM [facility] CO2 25 22 - 29 mmol/L 09/02/2021 12:21 AM [facility] Glucose 136(H) 70 - 115 mg/dL 09/02/2021 12:21 AM [facility] Calcium 9.3 8.4 - 10.2 mg/dL 09/02/2021 12:21 AM [facility] Protein Total 7.3 6.0 - 8.3 g/dL 09/02/2021 12:21 AM [facility] Albumin 3.6 3.4 - 5.0 g/dL 09/02/2021 12:21 AM [facility] Bilirubin Total 0.6 0.2 - 1.2 mg/dL 09/02/2021 12:21 AM [facility] Alkaline Phosphatase 92 40 - 150 U/L 09/02/2021 12:21 AM [facility] ALT 9 5 - 55 U/L 09/02/2021 12:21 AM [facility] AST 11 5 - 34 U/L 09/02/2021 12:21 AM [facility] Anion Gap 14 8 - 18 09/02/2021 12:21 AM [facility] BUN/Creatinine Ratio 10 7 - 23 09/02/2021 12:21 AM [facility] Osmolality Calculated 290 270 - 300 mOsm/kg 09/02/2021 12:21 AM [facility] Albumin/Globulin Ratio 1.0(L) 1.1 - 2.3 09/02/2021 12:21 AM [facility] eGFR by CKD-EPI >90 >=90 mL/min/1.7 3 m2 09/02/2021 12:21 AM [facility] Blood BLOOD SPECIMEN / Unknown Lab Venipuncture / Unknown 09/01/2021 10:59 PM CDT 09/01/2021 11:55 PM CDT Jeremy Palomino MD LAB - CHEMISTRY ORD ERABLES [facility] [address] [place] [id number], [facility] [phone] * EKG 12-LEAD (09/01/2021 10:46 PM CDT) Ventricular Rate 87 BPM [facility] Atrial Rate 87 BPM [facility] P-R Interval 194 ms [facility] QRS Duration ms 90 ms [facility] Q-T Interval ms 366 ms [facility] QTC Calculation (Bezet) 440 ms [facility] Calculated P [place] 54 degrees [facility] Calculated R [place] -35 degrees [facility] Calculated T [place] 85 degrees [facility] Interpretation EKG NORMAL SINUS RHYTHM LEFT AXIS DEVIATION ANTEROLATERAL INFARCT , AGE UNDETERMINED ABNORMAL ECG WHEN COMPARED WITH ECG OF 30-AUG-2006 06:00, QRS AXIS SHIFTED LEFT ANTERIOR INFARCT IS NOW PRESENT ANTEROLATERAL INFARCT IS NOW PRESENT Confirmed by Rian Mcfarland ([id number]) on 09/06/2021 11:27:36 PM [facility] M[facility] 09/01/2021 10:4 6 PM CDT 09/06/2021 11:27 PM CDT Jeremy Palomino MD ECG ORDERABLES [facility] * CT ANGIO BRAIN (09/01/2021 9:18 PM CDT) Anatomical Region Laterality Modality Head Computed Tomogra phy 09/01/2021 11:3 0 PM CDT Impressions 09/02/2021 8:20 AM CDT IMPRESSION: 1.No aneurysms, spot sign, or signs of a high flow vascular malformation identified to account for the patient's right [employer] infarct with hemorrhagic transformation. 2.The dural venous sinuses are not well opacified with contrast and cannot be evaluated. These findings were discussed in detail with the patient's care provider, Dr. Victoria by Dr. Sebastian via telephone at 9:35 PM on 09/01/2021 with readback comprehension and verification. Dictated by Coco Sebastian MD (group president). I, Dr. VALENTINE CESPEDES have personally reviewed and interpreted this examination/study. This report was electronically signed by VALENTINE CESPEDES ??on 09/02/2021 8:20 AM . Narrative 09/02/2021 8:[address] ANGIO BRAIN DATE: 09/01/2021 9:18 PM EXAMINATION: Computed tomographic (CT) angiography of the head with contrast HISTORY: I63.9: Cerebrovascular accident (CVA), unspecified mechanism TECHNIQUE: CT angiography of the head was obtained after the uneventful administration of 75 mL Isovue-370 intravenous contrast. Three dimensional postprocessing was performed by the technologist and sent to the workstation for review. COMPARISON: CT brain stroke dated 09/01/2021 9:07 PM FINDINGS: There is no evidence of active contrast extravasation in the known region of intraparenchymal hemorrhage. There is atherosclerotic disease involving the distal internal carotid arteries stenosis measuring up to 50%. The anterior and middle cerebral arteries appear normal. No aneurysm is demonstrated in the expected location of the anterior communicating artery. The left vertebral artery is dominant. There is atherosclerotic disease involving the distal vertebral arteries without high-grade stenosis. There is mild atherosclerotic disease of the basilar artery without stenosis. The superior cerebral arteries are patent. The bilateral P1 and P2 segments are patent without high-grade stenosis. Posterior communicating arteries are not seen. No aneurysms or vascular malformation are identified. The dural venous sinuses are not well opacified with contrast and cannot be evaluated. Procedure Note Valentine Cespedes MD - 09/02/2021 CT ANGIO BRAIN DATE: 09/01/2021 9:18 PM EXAMINATION: Computed tomographic (CT) angiography of the head with contrast HISTORY: I63.9: Cerebrovascular accident (CVA), unspecified mechanism TECHNIQUE: CT angiography of the head was obtained after the uneventful administration of 75 mL Isovue-370 intravenous contrast. Threedimensional postprocessing was performed by the technologist and sent to the workstation for review. COMPARISON: CT brain stroke dated 09/01/2021 9:07 PM FINDINGS: There is no evidence of active contrast extravasation in the knownregion of intraparenchymal hemorrhage. There is atherosclerotic disease involving the distal internal carotid arteries stenosis measuring up to 50%. The anterior and middle cerebral arteries appear normal. No aneurysm is demonstrated in the expected location of the anterior communicating artery. The left vertebral artery is dominant. There is atherosclerotic disease involving the distal vertebral arteries without high-grade stenosis.There is mild atherosclerotic disease of the basilar artery without stenosis. The superior cerebral arteries are patent. The bilateral P1 and P2 segments are patent without high-grade stenosis. Posterior communicating arteries are not seen. No aneurysms or vascular malformation are identified. The dural venous sinuses are not well opacified with contrast and cannot be evaluated. IMPRESSION: 1.No aneurysms, spot sign, or signs of a high flow vascular malformation identified to account for the patient's right [employer] infarct withhemorrhagic transformation. 2.The dural venous sinuses are not well opacified with contrast andcannot be evaluated. These findings were discussed in detail with the patient's careprovider, Dr. Victoria by Dr. Sebastian via telephone at 9:35 PM on 09/01/2021 with readback comprehension and verification. Dictated by Coco Sebastian MD (group president). I, Dr. VALENTINE CESPEDES have personally reviewed and interpreted this examination/study. This report was electronically signed by VALENTINE CESPEDES on09/02/2021 8:20 AM . Jeremy Palomino MD CT ORDERABLES
--- OUTSIDE RECORDS SUMMARY | 2024-06-21 19:49 | XMS_ITS | Referral Summary ---
Author Organization [facility] Address [address] [place] [address] Care Team Providers Care 3D Specialist Name Role Phone Unavailable Primary Care Provider Unavailabl e Source Comments [facility],non-owned Affiliates and Associated Physician Practices is amultiple site organization consisting of ambulatory clinics and hospital sitesin [place], [place], [place] and [place]. This disclosure is being madepursuant to the Care Everywhere program and may not contain all information available regarding this patient. Last updated 18.[facility] Allergies Active Allergy Reactions Criticality Noted Date Comments metaclopramide [Other] Nausea and/or Vomiting Low Medications * Be aware that medications may not be up to date on this document. Alwaysverify current medications with the patient. Medication Sig Dispensed Refills Start Date End Date Status carvedilol (COREG) 3.125 MG tablet Take 3.125 mg by mouth 2 times daily with morning and evening meal Active albuterol HFA (PROVENTIL; VENTOLIN; PROAIR) 108 (90 Base) MCG/ACT inhaler Inhale 2 puffs by mouth every 6 hours as needed Active insulin glargine (Lantus/Semglee) 100 units/ml injection Inject 60 Units subcutaneously at bedtime Active empagliflozin (JARDIANCE) 10 MG tablet Take 10 mg by mouth once daily Active pantoprazole EC (PROTONIX) 40 MG tablet Take 40 mg by mouth once daily Active atorvastatin (LIPITOR) 40 MG tablet Take 40 mg by mouth at bedtime Active lisinopril (PRINIVIL;ZESTRIL ) 5 MG tablet Take 1 (one) tablet by mouth once daily 90 tablet 4 09/03/2021 Active Active Problems Problem Noted Date Diagnosed Date History of ischemic stroke 09/02/2021 Diabetes mellitus 09/02/2021 Acute cystitis without hematuria 09/02/2021 Hypokalemia 09/02/2021 Cerebral brain hemorrhage 09/01/2021 Cerebrovascular accident (CVA) 07/27/2021 Immunizations Name Administration Dates Next Due PNEUMOCOCCAL PPSV23 06/19/2015 TDAP (7yrs+) 06/20/2010 Social History Tobacco Use Types Packs/Day Years [...] Mass Index 24.88 09/01/2021 9:00 PM CDT Functional Status Functional Status Response Date of Assess ment Is person deaf or have serious hearing difficult y? No 09/03/2021 Is person blind or have serious difficulty seein g? No 09/03/2021 Does person have serious dif ficulty walking/climbing stairs? No 09/03/2021 Does person have difficulty dressing/bathing? No 09/03/2021 Does person have difficulty doing errands alone? No 09/03/2021 Cognitive Status Response Date of Assessm ent Does person have difficulty concentrating/remembering/making decisions? No 09/03/2021 Plan of Treatment Not on file Procedures Procedure Name Priority Date/Time Associated Diagnosis Comments BASIC METABOLIC PANEL (CALCIUM TOTAL) Routine 09/03/2021 2:48 AM CDT Cerebral brain hemorrhage (HCC) HEMOGLOBIN A1C Routine 09/03/2021 2:48 AM CDT Cerebral brain hemorrhage (HCC) from Last 3 Months or Most Recently Relevant to Health Maintenance Results * (ABNORMAL) HEMOGLOBIN A1C (09/03/2021 2:48 AM CDT) Hemoglobin A1c 11.5(H) <=5.6 % 09/03/2021 10:28 AM CDT [facility] Estimated Average Glucose 283 mg/dL 09/03/2021 10:[address] AM CDT [facility] Comment: HbA1c Interpretation: Normal : < 5.7% Pre-diabetes: 5.7-6.4% Diabetes: Equal to or greater than 6.5% Test results diagnostic of diabetes should be repeated for confirmation. Treatment target values recommended by ADA and other clinical organizations should be used to evaluate metabolic control in patients. Reference: [place] [employer], Standards of Care in Diabetes [...] Palomino MD LAB - CHEMISTRY ORD ERABLES [facility] [address] [place] [address], [facility] [phone] * (ABNORMAL) BASIC METABOLIC PANEL (CALCIUM TOTAL) (09/03/2021 2:48 AM CDT) BUN 7 7 - 26 mg/dL 09/03/2021 3:40 AM [facility] Creatinine 0.68(L) 0.71 - 1.16 mg/dL 09/03/2021 3:40 AM [facility] Sodium 138 136 - 145 mmol/L 09/03/2021 3:40 AM [facility] Potassium 3.6 3.5 - 4.5 mmol/L 09/03/2021 3:40 AM [facility] Chloride 107 98 - 107 mmol/L 09/03/2021 3:40 AM [facility] CO2 20(L) 22 - 29 mmol/L 09/03/2021 3:40 AM [facility] Glucose 161(H) 70 - 115 mg/dL 09/03/2021 3:40 AM [facility] Calcium 8.5 8.4 - 10.2 mg/dL 09/03/2021 3:40 AM [facility] Anion Gap 15 8 - 18 09/03/2021 3:40 AM [facility] BUN/Creatinine Ratio 10 7 - 23 09/03/2021 3:40 AM [facility] Osmolality Calculated 287 270 - 300 mOsm/kg 09/03/2021 3:40 AM [facility] eGFR by CKD-EPI >90 >=90 mL/min/1.7 3 m2 09/03/2021 3:40 AM [facility] Blood BLOOD SPECIMEN / Unknown Lab Venipuncture / Unknown 09/03/2021 2:48 AM CDT 09/03/2021 3:04 AM [facility] Jeremy Palomino MD LAB - CHEMISTRY ORD ERABLES [facility] [address] [place] [address], [facility] [phone] from Last 3 Months or Most Recently Relevant to Health Maintenance Advance Directives * Full Code (Latest Code Status on File) Date Activated Date Inactivated Comments 09/01/2021 10:29 PM 09/03/2021 5:42 PM
--- OUTSIDE RECORDS SUMMARY | 2024-06-21 19:49 | XMS_ITS | Encounter Summary ---
Author Organization [facility] Health Address [address] [place] [address] Care Team Providers Care Watcher Lookout Tower Name Role Phone Grecia Bravo OPERATIONS STAFF SPECIALIST SECURITY-INSTRUCTIONAL DESIGNER Unavailable [phone] Reason for Visit * Reason Comments Altered mental status Pt BIBEMS from OSH d/t finding a hemorrhagic bleed on his head CT. Pt was origianally brought to the OSH by his family that he lives with d/t acting erratic for the past 2-3days. Pt has no confusion at baseline but started walking around the house turning on the gas and doing things with no purpose. Pt has had no known injury. Pt has no c/o pain and feels normal to himself. Pt does have hx of a previous bleed, HTN, and stents but is unsure if he is on a blood thinner. * Auth/Cert Specialty Diagnoses / Procedures Referred By Humberto t Referred To Contact Referral ID Status Reason Start Date Expiration Date Visits Re quested Visits Authorized [id number] 1 1 Encounter Details Date Type Department Care Team (Latest Contact Info) Description 09/01/2021 9:00 PM CDT - 09/03/2021 4:42 PM CDT Hospital Encounter [facility] 5N ACUTE [address] [place] [id number] Yovani Hollingsworth MD [address] [place] [address] Jeremy Palomino MD [address] [place] [address] Neurology Discharge Disposition: Home or Self Care Social History Tobacco Use Types Packs/Day Years [...] on file Sexual Orientation Not on file documented as of this encounter Last Filed Vital Signs Vital Sign Reading [...] Mass Index 24.88 09/01/2021 9:00 PM CDT documented in this encounter Functional Status Functional Status Response Date of [...] person have difficulty concentrating/remembering/making decisions? No 09/03/2021 documented as of this encounter Discharge Summaries * Naisma Gibson MD - 09/03/2021 4:00 PM CDT [facility] DISCHARGE SUMMARY PATIENT: Baldev Qiu 61 year old male : 1960 ADMISSION INFO ADMISSION DISCHARGE Date: 09/01/2021 Date: 09/03/2021 Adm. Physician Jeremy Palomino MD Disch. Physician: Jeremy Palomino MD Reason for Admission: At OSH he was found to have hemorrhagic infarct in the right occipital lobe. He was transferred to [facility] for higher level of care. Encounter Diagnoses: 1. Cerebrovascular accident (CVA), unspecified mechanism 2. Cerebral brain hemorrhage HOSPITAL COURSE 61 year old gentleman who was taken to OSH by his family because he was behaving abnormally per family; turning on the stove and ding purposeless acts. At OSH he was found to have hemorrhagic infarctin the right occipital lobe. He was transferred to [facility] for higher level of care. ?? On arrival to [facility], his NIHSS was 0, neurologic exam was non-focal. 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 CTA showed no spot sign, aneurysm or vascular malformation. Showed a right P3 occlusion. Hemodynamically stable, GCS 15. 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 Brain MRI showed Subacute infarct in right NATIONAL SALES MANAGER territory with small-volume hemorrhagic transformation. Mild noncritical mass effect.Intraventricular extensionof hemorrhage. No hydrocephalus. ?? His UA is concerning for UTI, he completed a 3-day course of ceftriaxone. TTE showed reduced ejection fraction of 38% in addition to PFO (ROPE Score 2). Cardiology recommended starting the patient on therapeutic anticoagulation in light of his stroke in presence of PFO. The decision was made to start the patient on aspirin and to repeat CT head in 2 weeks to monitor bleeding. If no re-bleeding was identified, the patient can be started on therapeutic anticoagulation. Lastly, the patient was discharged on keppra 1000mg BID. PT/OT recommended home-health. On 09/03/2021, he is being discharged to home. CONSULTS IP CONSULT TO VASCULAR NEUROLOGY IP CONSULT TO CASE MANAGEMENT IP CONSULT TO NUTRITIONAL SERV IP CONSULT TO RESEARCH CHEF IP CONSULT TO PHYSICAL MED AND REHAB IP CONSULT TO CARDIOLOGY DIAGNOSTIC STUDIES CT head without contrast MRI neck with contrast MRI brain without contrast CTA brain DISCHARGE EXAM BP 107/71 Pulse 80 Temp 98.4 ??F (36.9 ??C) (Oral) Resp 18 Ht 5' 11 (1.803 m) Wt 178 lb 6.4 oz (80.9 kg) SpO2 97% BMI 24.88 kg/m2 General: A&Ox3, follows commands, NAD HEENT: HC/AT Heart: RRR Lungs: NLB on RA Abdomen: Non-tender, non-distended. ?? Neuro Exam: Mental Status: Awake, alert oriented to person, place, and time, speech is fluent and without dysarthria Cranial Nerves: PERRL, EOMI, L homonymous hemianopia, facial sensation intact, facial expression symmetric, hearing intact to finger rub bilaterally, symmetric palate elevation, shoulder shrug intactand symmetric, tongue protrudes midline Motor: Normal muscle bulk Normal muscle tone 5/5 upper and lower extremity strength ?? Reflexes: 2+ throughout Sensory: Intact to LT Cerebellar: FNF intact /bl Gait and Station: deferred DISCHARGE PLANNING Disposition: Home Diet: Cardiac diet Activity Level: as tolerated Monitoring: home health Follow-up appointments: Future Appointments August Imaging: CT HEAD WO CONTRAST Medications: Current Discharge Medication List START taking these medications Instructions Authorizing Provider levETIRAcetam 1000 MG tablet Commonly known as: Keppra Quantity Dispensed: 60 tablet Take 1 (one) tablet by mouth 2 times daily for 30 days Nasima Gibson MD lisinopril 5 MG tablet Commonly known as: Prinivil;Zestril Quantity Dispensed: 90 tablet Take 1 (one) tablet by mouth once daily Nasima Gibson MD CONTINUE taking these medications which have NOT CHANGED Instructions Authorizing Provider albuterol HFA 108 (90 Base) MCG/ACT inhaler Commonly known as: Proventil; Ventolin; Proair Inhale 2 puffs by mouth every 6 hours as needed Aspirin 81 81 MG chew tablet Generic drug: aspirin Take 81 mg by mouth once daily atorvastatin 40 MG tablet Commonly known as: Lipitor Take 40 mg by mouth at bedtime Coreg 3.125 MG tablet Generic drug: carvedilol Take 3.125 mg by mouth 2 times daily with morning and evening meal empagliflozin 10 MG tablet Commonly known as: Jardiance Take 10 mg by mouth once daily Lantus vial Generic drug: insulin glargine Inject 60 Units subcutaneously at bedtime pantoprazole EC 40 MG tablet Commonly known as: Protonix Take 40 mg by mouth once daily Nasima Gibson MD Neurology, PGY-1 09/03/2021 4:01 PM Associated attestation - Jeremy Palomino MD - 09/08/2021 9:43 AM CDT NEUROVASCULAR SERVICE ATTESTATION I saw and examined the patient with the Resident. I have verified all details of the Resident's note and agree with the Resident's documentation with additions and modifications as listed below. I spent more than 30 minutes of time in direct coordination of care related to this patient's discharge including medications, coordination with other health care providers and communication with thepatient and family. Jeremy Palomino MD documented in this encounter Discharge Instructions * Discharge Instructions* Nasima Gibson MD - 09/03/2021 3:56 PM CDT Images from the original note were not included. Patient Education Intracerebral Hemorrhage WHAT YOU NEED TO KNOW: An intracerebral hemorrhage (ICH) is a type of stroke with bleeding in the brain. An ICH happens when a blood vessel tears or bursts. Blood then leaks out of the vessel and slows or stops blood flow to the brain. The leaked blood may also collect in one area. This is called a hematoma. A hematoma can create pressure that keeps oxygen from flowing to the brain. Brain damage may happen within a fewminutes if the brain cannot get enough oxygen. An ICH is a medical emergency that needs immediate care. DISCHARGE INSTRUCTIONS: Have someone call your local emergency number (911 in the ) if: ?? You have any of the following signs of a stroke: ? Numbness or drooping on one side of your face ? Weakness in an arm or leg ? Confusion or difficulty speaking ? Dizziness, a severe headache, or vision loss ?? You have a seizure. ?? You have chest pain or shortness of breath. ?? You cough up blood. Seek care immediately if: ?? Your arm or leg feels warm, tender, and painful. It may look swollen and red. ?? You have unusual or heavy bleeding. Call your doctor or neurologist if: ?? You have trouble swallowing. ?? Your blood pressure or blood sugar level is higher or lower than you were told it should be. ?? You have questions or concerns about your condition or care. Medicines: ?? Medicines may be given to treat high cholesterol, high blood pressure, or diabetes. You may alsoneed medicine to prevent seizures. ?? Take your medicine as directed. Contact your healthcare provider if you think your medicine is not helping or if you have side effects. Tell him or her if you are allergic to any medicine. Keep a list of the medicines, vitamins, and herbs you take. Include the amounts, and when and why you take them. Bring the list or the pill bottles to follow-up visits. Carry your medicine list with you in case of an emergency. Warning signs of a stroke: The words BE FAST can help you remember and recognize warning signs of astroke: ?? B = Balance: Sudden loss of balance ?? E = Eyes: Loss of vision in one or both eyes ?? F = Face: Face droops on one side ?? A = Arms: Arm drops when both arms are raised ?? S = Speech: Speech is slurred or sounds different ?? T = Time: Time to get help immediately Go to stroke rehabilitation (rehab) if directed: Rehab is a program run by specialists who will help you recover abilities you may have lost. Specialists include physical, occupational, and speech therapists. Physical therapists help you gain strength or keep your balance. Occupational therapists teach you new ways to do daily activities, such as getting dressed. Your therapy may include movements for everyday activities. An example is being able to raise yourself from a chair. A speech therapist helps you improve your ability to talk and swallow. Manage or prevent an ICH: Healthcare providers will help you create goals for your recovery. The following lifestyle changes can help you reach your goals and lower your risk for another ICH: ?? Manage health conditions. A condition such as diabetes can increase your risk for a stroke. Control your blood sugar level if you have hyperglycemia or diabetes. Take your prescribed medicines andcheck your blood sugar level as directed. ?? Check your blood pressure as directed. High blood pressure can increase your risk for a stroke. Follow your healthcare provider's directions for controlling your blood pressure. ?? Do not use nicotine products or illegal drugs. Nicotine and other chemicals in cigarettes and cigars can cause blood vessel damage. Nicotine and illegal drugs both increase your risk for a stroke.Ask your healthcare provider for information if you currently smoke or use drugs and need help to quit. E- cigarettes or smokeless tobacco still contain nicotine. Talk to your healthcare provider before you use these products. ?? Do not drink alcohol. Alcohol increases your risk for a stroke. Alcohol may also raise your blood pressure or thin your blood. Blood thinning can cause a hemorrhagic stroke. ?? Eat a variety of healthy foods. Healthy foods include whole-grain breads, low-fat dairy products, beans, lean meats, and fish. Eat at least 5 servings of fruits and vegetables each day. Choose foods that are low in fat, cholesterol, salt, and sugar. Eat foods that are high in potassium, such as potatoes and bananas. A cake maker can help you create healthy meal plans. ?? Maintain a healthy weight. Ask your healthcare provider what a healthy weight is for you. Ask him or her to help you create a weight loss plan if you are overweight. He or she can help you create small goals if you have a lot of weight to lose. ?? Exercise as directed. Exercise can lower your blood pressure, cholesterol, weight, and blood sugar levels. Healthcare providers will help you create exercise goals. They can also help you make a plan to reach your goals. For example, you can break exercise into 10 minute periods, 3 times in a day. Find an exercise that you enjoy. This will make it easier for you to reach your exercise goals. ?? Manage stress. Stress can raise your blood pressure. Find new ways to relax, such as deep breathing or listening to music. What you need to know about depression after a stroke: Talk to your healthcare provider if you havedepression that continues or is getting worse. Your provider may be able to help treat your depression. Your provider can also recommend support groups for you to join. A support group is a place to talk with others who have had a stroke. It may also help to talk to friends and family members abouthow you are feeling. Tell your family and friends to let your healthcare provider know if they see signs of depression: ?? Extreme sadness ?? Avoiding social interaction with family or friends ?? A lack of interest in things you once enjoyed ?? Irritability ?? Trouble sleeping ?? Low energy levels ?? A change in eating habits or sudden weight gain or loss Follow up with your doctor or neurologist as directed: You may need regular tests of your brain function. Your doctor can also refer you for other kinds of care, such as palliative or comfort care. Write down your questions so you remember to ask them during your visits. For support and more information: ?? [employer] and [place] [facility] [place] [address] Phone: Web Address: http://www.[employer].org ?? Copyright [employer] 2020 Information is for End User's use only and may not be sold, redistributed or otherwise used for commercial purposes. All illustrations and images included in CareNotes?? are the copyrighted property of [employer]. or [employer] The above information is an clinical laboratory aides teacher only. It is not intended as medical advice for individual conditions or treatments. Talk to your doctor, nurse or pharmacist before following any medical regimen to see if it is safe and effective for you. ~~~~~~~~~~~~~IMPORTANT MESSAGE FROM YOUR DOCTORS~~~~~~~~~~~~~ Baldev Qiu, You were transferred to [facility] ([facility] as an intracranial bleeding was identified on CAT scan imaging. During your hospital stay, you underwent further investigations to determine the source of your stroke. Also, it was noticed on admission that you have a urinary tract infection, for which you received a 3-day antibiotic course. Our inpatient cardiologists was consulted for recommendations on your echocardiogram findings: you were started on lisinopril 5mg once a day. Lastly, per our inpatient physical and occupational therapists, it was recommended for you to undergo physical and occupational therapy at your home. In two weeks, you'll have a follow up appointment with stroke/neurology in two weeks from your discharge date. In addition an appointment with radiology department to repeat head CAT scan. Thank you. FOLLOW-UP APPOINTMENTS: You should receive a call to schedule your follow-up appointments. If you do not receive a call within the one week, please call the number below. If you need to call [facility] for any reason, you may reach us at [phone] and dial [phone] for the well services operator. You can see your list of medications below. Please discuss these changes with your Primary Care Physician Lifestyle Modifications It is very important for your health to STOP smoking cigarettes. Please use Nicotine patches and gum to help you quit and discuss other methods of quitting smoking with your primary care physician. Please include plenty of fruits and vegetables in your diet, and maintain a healthy diet, includinga low-salt and low-calorie diet to help you lose weight, and as specified by your primary doctor. Discuss an exercise program with your primary care physician. It is recommended that most individuals should exercise for 20 minutes at least 5 times per week. Please call your physician or report to the nearest emergency room if you develop new or concerningsymptoms, including, but not limited to, chest pain, palpitations, numbness, tingling, or shortnessof breath. CONCERNING SYMPTOMS: Call your healthcare provider immediately if you have any of the following: - Dizziness - Weakness in arms/legs - Fever of 101??F or higher - Shaking chills - Intractable (difficult to control) nausea and vomiting - Severe headache - Confusion/altered mental status - Seizures (convulsions) If you are unable to reach your primary provider, please go to the nearest emergency room or call EMS ([phone]). Thank you for choosing [facility] for your medical care. Internal Medicine Department [address] [address] Medication List START taking these medications levETIRAcetam 1000 MG tablet Commonly known as: Keppra Take 1 (one) tablet by mouth 2 times daily for 30 days lisinopril 5 MG tablet Commonly known as: Prinivil;Zestril Take 1 (one) tablet by mouth once daily CONTINUE taking these medications albuterol HFA 108 (90 Base) MCG/ACT inhaler Commonly known as: Proventil; Ventolin; Proair Aspirin 81 81 MG chew tablet Generic drug: aspirin atorvastatin 40 MG tablet Commonly known as: Lipitor Coreg 3.125 MG tablet Generic drug: carvedilol empagliflozin 10 MG tablet Commonly known as: Jardiance Lantus vial Generic drug: insulin glargine pantoprazole EC 40 MG tablet Commonly known as: Protonix Where to Get Your Medications These medications were [facility] to [facility] - [address] [facility] [address] [address] [facility] [id number] ?? lisinopril 5 MG tablet You can get these medications from any pharmacy Bring a paper prescription for each of these medications ?? levETIRAcetam 1000 MG tablet documented in this encounter Medications at Time of Discharge Medication Sig Dispensed Refills Start Date End Date albuterol HFA (PROVENTIL; VENTOLIN; PROAIR) 108 (90 Base) MCG/ACT inhaler Inhale 2 puffs by mouth every 6 hours as needed atorvastatin (LIPITOR) 40 MG tablet Take 40 mg by mouth at bedtime carvedilol (COREG) 3.125 MG tablet Take 3.125 mg by mouth 2 times daily with morning and evening meal empagliflozin (JARDIANCE) 10 MG tablet Take 10 mg by mouth once daily insulin glargine (Lantus/Semglee) 100 units/ml injection Inject 60 Units subcutaneously at bedtime lisinopril (PRINIVIL;ZESTRIL) 5 MG tablet Take 1 (one) tablet by mouth once daily 90 tablet 4 09/03/2021 pantoprazole EC (PROTONIX) 40 MG tablet Take 40 mg by mouth once daily aspirin (ASPIRIN 81) 81 MG chew tablet Take 1 (one) tablet by mouth once daily 30 tablet 11 09/03/2021 09/03/2022 levETIRAcetam (KEPPRA) 1000 MG tablet Take 1 (one) tablet by mouth 2 times daily for 30 days 60 tablet 09/03/2021 10/03/2021 documented as of this encounter Progress Notes * Butch Archer CPhT - 09/03/2021 4:42 PM CDT MEDICATION TO BEDSIDE DELIVERY: COMPLETE Medication to Bedside delivery was completed for Baldev Qiu. ??? A total of 1 prescriptions were delivered to the patient for discharge. ??? Medications were given to NURSE (ELENA) ??? This delivery included a controlled substance: NO ??? This delivery included medication that should be stored in the fridge: NO Thank you for allowing the outpatient pharmacy to participate in the care of Baldev Qiu. If you have any questions, please contact the outpatient pharmacy at [phone]. Butch Archer CPhT [facility] [address] [place], [place] [address] Hours of Operation Tuesday - Tuesday: 8:00am to 6:00pm Tuesday: 9:00am to 1:00pm Epic: [facility] *Ensure the patient and clinic's nearby ZIP codes box is unchecked* * Aleida Du RN - 09/03/2021 4:15 PM CDT Case Management Progress Note Anticipated level of care at discharge: Home, Acute Rehab Facility Discharge Plan: Patient planned to discharge to home. Patient's notified that health benefits do not cover HHC PT/OT or outpatient therapy. Patient to be discharged home, no other case management needs, primary team is aware. Basic Needs Assessment (BNA) Score: Anticipated Discharge Date: Anticipated Discharge Date: 09/05/21 Patient/Family provided with list of resources? Unknown @[email or web address]@ Reason for provider choice: Unknown Transportation at Discharge: (to be determined by disposition) Transportation to MD: Equipment at Home: Equipment At Home: Cane-Pro Stream + Quad Additional DME needed: Hunger Screening: Within the past 12 months, you worried that your food would run out before you got the money to buymore.: Sometimes true Within the past 12 months, the food you bought just didn???t last and you didn???t have money to get more.: Sometimes true Medication affordability concerns: Auth Number (if required) NH: DME: Medications: Transportation: Name: Aleida Du RN Phone: [phone] * Zeina Ma - 09/03/2021 1:39 PM CDT [facility] Cognitive Evaluation Patient: Baldev Qiu [facility] Record Number: [id number] Date of : 1960 Age: [age] year old In addition to the 1:1 evaluation of the patient, additional eval time was spent completing the chart review prior to the assessment, completing the multidisciplinary plan of care and education plan post evaluation and communicating results of the eval to other treatment team members. PPE: PPE donned by FEEDER OPERATOR during this session - N95 mask, eye protection and gloves. Impressions: Pt was initially agreeable to participate in the [facility] evaluation this visit. Pt was A&Ox3 and aware of his brain bleed that brought him into the hospital; however, pt presented with lack of awareness of rational for visit. As the screener progressed pt grew uncooperative and refused to continue given he did not have time to answer these stupid questions. FEEDER OPERATOR educated pt on reason of visit and potential cog treatments. Screener was terminated at question 5 due to pt refusal. FEEDER OPERATOR observed pt with thin liquids this visit and pt showed no s/s of aspiration. Per conversation with nurse, there are no swallow concerns at this time. FEEDER OPERATOR will d/c all services at this time. Please re consult if concerns arise. Discharge Recommendations: Speech therapy is recommended to improve cognition/language. Subjective: Mental Status: Pt was agreeable to screener questions however, as screener progressed pt reported I have a lot on my mind right now. I can't be answering these stupid questions. Get my doctor in here. Pt was observed with foul language. Patient Goals: Per discussion with pt, he is not interested in continuing FEEDER OPERATOR services. Pain: Patient has 0/10 Objective: Cognitive-Linguistic Assessment: Patient completed the [facility] Mental Status ([facility])Examination with the following results: Orientation: 3/3 Math Reasonin/3 Fluency Namin/3 Delayed Recall: 0/5 Working Memory: Not completed Clock Drawing Task: Not completed Visual spatial: Not completed Paragraph Recall: Not completed Scoring: NA, completed score: 12/01 ??? High School Education: 27-30=Normal, 21-26= MNDC*, 1-20=Dementia. ??? Less than High School Education: 25-30=Normal, 20=24=MNCD*,1-19=Dementia. * Mild Neurocognitive Disorder Assessment: Behavioral: uncooperative/irritable Cognitive-Communication: It should be noted that this evaluation was not completed. Nevertheless, pt presents with difficulty in math reasoning, fluency naming, and delayed recall. During discourse, pt perseverated on the idea of needing his doctor (I.e. he needs to get me out of here ). While pt was aware of his brain bleed, he did not have insight nor understand that the reason the FEEDER OPERATOR was doing the screener was because of the brain bleed. Education: Patient instructed in recommedations and indicated understanding. Goals: Short Term Goals: Patient to demonstrate no clinical signs/symptoms of aspiration or difficulty swallowing with recommended diet. [facility] Goals: Patient to be independent/baseline with speech/language/cognitive/swallowing to beable to safely discharge to prior level of care. If patient is discharged from the facility, this note serves as a discharge note if further speech therapy visits did not occur. Zeina Ma B.A. Speech Language Pathology Student * Josy Wadsworth, PT - 09/03/2021 1:14 PM CDT [facility] Physical Medicine and Rehabilitation PhysicalTherapy Progress Note Patient: Baldev Qiu Med Record Number: [id number] Date of : 1960 Age: [age] year old Face Mask: procedural mask worn by therapist entire session and by patient in hallway Tech: No Discharge Recommendation: Patient will benefit from home health physical therapy. Subjective: States he wants to go home Patient currently using no assistive device. Mental Status: alert,oriented,follows commands At start of therapy session, patient found in bed and with bed alarm on. Pain: Patient has 0/10 pain Follow-up for pain: No follow-up for pain indicated and patient agreed to proceed with treatment Weight Bearing Status: WBAT Mobility: Rolling: Independent Supine to Sit:Stand By Assist Sit to Supine: not tested Sit to Stand:Stand By Assist Bed to Chair: Stand By Assist Gait: Device:none and non-slip socks and gait belt Assistance: Stand By Assist Distance: 325ft Deviations: minimal decreased attention Also ambulated ~ 100ft with standard cane and SB to independent Balance: Static Sitting: good Dynamic sitting: good Static Standing: good Dynamic Standing: good minus Stairs : up/down 5 stairs with 1 railing and SB assist Vitals: (*Assess the 3 levels of oxygen saturations both for room air and 02 unless rest on room air is 88% or less). Rest BP: 120/78 (89) HR: 80 Sp02 Sp02 99 Room Air L O2 RA Ex/Gait/Activity Without 02 BP: HR: Sp02 Room Air Ex/Gait/Activity With 02 BP: HR: Sp02 L O2 Post Activity BP: 122/78 (92) HR: 84 Sp02 Sp02 100 L O2 Room Air RA Observations: denied dizziness Activity Tolerance: Patient's activity tolerance: good Modified Lanier Score:3 Current Modified Sterling Score: 4 Treatment/therapeutic Exercise: Bed mobility,supine to sit, sit to stand x 3,gait/stair training. Also performed standing balance activities including side-stepping,marching,braiding. EDUCATION: While performing PT, Patient was instructed in:Functional mobility training/weight bearing status, Safety awareness/fall precaution, Home exercise program and Discharge plan Patient demonstrated Good understanding of instructions given. GOALS: Short Term Goals: Goal Formation With patient Patient will perform bed mobility: Independent Patient will transfer sit to/from stand: Independent Patient will transfer bed to/from chair: Stand By Assist Patient will ambulate 300 feet independently and appropriate AD Patient will perform home exercise program independently ?? [facility] Goal(s): Patient to discharge home with family assist. Would recommend home PT Update Treatment Plan: Continue PT If patient is discharged from the facility, this note serves as a discharge note if further physical therapy visits did not occur. Following therapy session, patient left in patient bedside chair, with chair alarm on, with call light within reach and RN aware. * Stefania Jaeger OT - 09/03/2021 12:10 PM CDT [facility] Physical Medicine and Rehabilitation Occupational Therapy Progress Note Patient: Baldev Qiu [facility] Record Number: [id number] Date of : 1960 Age: [age] year old Face Mask: yes- therapist wore KF94 and procedural mask with protective eyewear Tech: no Discharge Recommendation: Patient will benefit from home health OT. * pt is doing much better this date and would be OK to D/C home with HHOT Precautions: Subjective: I am going home At start of therapy session, patient found in bed. Pain: Patient has 0/10 pain Follow-up for pain: No follow-up for pain indicated and patient agreed to proceed with treatment Activities of Daily Living Feeding:n/a Grooming/Bathing: Stand By Assist with washing face Upper Extremity Dressing: not tested Lower Extremity Dressing: not tested Toileting/Transfers: Stand By Assist Mobility: Assist device: none Rolling: Stand By Assist Supine to/from Sit:Stand By Assist Sit to/from Stand: Stand By Assist Bed to/from Chair: Stand By Assist Balance: Static Sitting: good Dynamic Sitting: good Static Standing: good Dynamic Standing: good Activity tolerance: fair Modified Lanier Score: 3 Current Modified Sterling Score: 4 Cognitive/Perceptual: Pt alert Ox3 and following simple 1-2 step commands. Pt attention is good. Safety awareness and problem solving intact. Treatment/Therapeutic Exercise: Treatment session this date focused on ADL training Functional transfer training Endurance training EDUCATION: While performing mobility, exercise and self care, Patient was instructed in: Functional mobility training/weight bearing status, Safety awareness/fall precaution and Home exercise program Presented to patient who demonstrates Good understanding of instructions given. Equipment Issued: none Update Treatment Plan/Goals : Pt continues to benefit from skilled OT to improve independence with activities of daily living, increase strength, endurance, range of motion and decrease pain. Short Term Goals: Patient will perform lower extremity dressing With stand by assist Patient will perform sit to stand With stand by assist Patient will tolerate AROM Bilateral UE, 15 reps and with good endurance Patient will tolerate treatment 25 minutes and with good endurance Education: good, safety education and HEP education ?? [facility] Goal: Patient to discharge to appropriate next level of inpatient care If patient is discharged from the facility, this note serves as a discharge note if further occupational therapy visits did not occur. Following therapy session, patient left in patient bedside chair, with chair alarm on and with calllight within reach. * Yancy Huddleston - 09/03/2021 8:14 AM CDT Social Work Progress Note Discharge Plan Disposition: SW reviewed Pt's chart and attended Stroke Rounds. PT/OT have recommended rehab for patient however Pt's disposition is that he would prefer to return home. SW submitted referrals to rehab facilities near Pt's home. SW will continue to follow and assist with disposition. UPDATE: ABRAHAM met with Pt at bedside following consult with cardiology. Pt indicated he would like to go home and does not want a facility. Pt's spouse was notified and will discharge home. SW notified NCM of the recommendation for HHOT/HHPT. NCM to follow up. Continued Care and Services - Admitted Since 09/01/2021 Destination Service Provider Request Status Selected Services Address Phone Fax Patient [facility] Pending - Request Sent N/A [phone] [facility] [facility] [phone] -- [facility] Pending - Request Sent N/A [id number] [facility] [address] [phone] -- [facility] Pending - Request Sent N/A [id number] [facility] [phone] -- [facility] Pending - Request Sent N/A [id number] [address] [phone] -- [facility] Pending - Request Sent N/A [id number] [facility] [phone] -- [facility] Pending - Request Sent N/A [id number] [facility] [phone] -- Transportation (if ambulance rationale): Transportation at discharge: (to be determined by disposition) Anticipated Discharge Date: Anticipated Discharge Date: 09/05/21 Contacts: Extended Emergency Contact Information Primary Emergency Contact: Kallie Qiune Relation: Other Have they been contacted? PARKER Meza MBA Doctor Of Podiatric Medicine [phone] 09/03/2021 8:14 AM * Adriana Contreras RN - 09/02/2021 11:25 PM CDT Problem: Fall Risk Goal: Fall risk and fall related injury risk are minimized (interventions related to the fall risk can be found in the flowsheet documentation) Outcome: Progressing Problem: Neurological Deficit Goal: Neurological status is stable or improving Outcome: Progressing Problem: Mobility Goal: Patient's mobility/activity will be maintained as optimum level for age, diagnosis and physical limitations Outcome: Progressing Goal: Continuum of care needs are further met through referral to outpatient services when appropriate. Outcome: Progressing Goal: Patient reports the ability to perform Activities of Daily Living. Outcome: Progressing * Nasima Gibson MD - 09/02/2021 7:37 PM CDT Family Notification Documentation Contact made: 09/02/2021 2:15 PM Person(s) contacted: Geno Qiu () Method of communication: Phone Phone number: [phone] Duration of discussion: 7 minutes Summary of discussion was called to be updated with the patient's clinical condition. It was explained that due to sudden alteration in the patient's mental status, a CT head was warranted to rule out any worsening of the already present hemorrhagic stroke. Fortunately, no change or worsening was noted when compared to CT-head done on admission. Furthermore, it was clarified that the patient is at high risk of seizures due to his hemorrhagic stroke, therefore, he was started on anti-seizure medications. Lastly, she was informed that based on PT/OT recs, inpatient rehab was recommended but has refused and would prefer to receive home health. All questions were answered and all concerns were addressed. Nasima Gibson MD Neurology,PGY-1 * Brian Warren RN - 09/02/2021 2:48 PM CDT Case Management Stroke Psychosocial Assessment Case Management screen completed & Welcome Letter given. Diagnosis: The primary encounter diagnosis was Cerebrovascular accident (CVA), unspecified mechanism. A diagnosis of Cerebral brain hemorrhage was also pertinent to this visit. Met with spouse Discharge Goals and Plans Plans: No discharge needs identified at this time. Consult Case Management if discharge planning needs arrise. Anticipated Discharge Date: 09/05/21 Lives with:: Spouse;Son Spouse states he uses a cane to ambulate, but has needed more assistance with ADLs lately. He does not drive due to worsening eyesight. Family Support (name and phone): Extended Emergency Contact Information Primary Emergency Contact: LazarusGeno Relation: Other Anticipated level of care at discharge: Home, Acute Rehab Facility, Care Home - Skilled Facility For patients discharging home with Home Health, [facility] [place] or other outpatient services, has thefamily or caregiver been assessed to determine their skills, capacity and resources available to meet the patient needs: No If patient requires HHC at discharge, he/she requests: Transportation at Discharge: Transportation at discharge: (to be determined by disposition) Equipment at Home: Equipment At Home: Cane-Small Base Quad Additional equipment needed at home but does not have: Pharmacy benefit: Yes Medication affordability concerns: No Hunger Screening: Within the past 12 months, you worried that your food would run out before you got the money to buymore.: Sometimes true Within the past 12 months, the food you bought just didn???t last and you didn???t have money to get more.: Sometimes true Doctor Of Podiatric Medicine Referral: No Community Resources provided: Patient and/or Family Questions/Concerns: none Will continue to follow. For any questions or needs please contact: [place] Name/Phone number: Brian Warren RN [phone] * Loree Sullivan SLP - 09/02/2021 1:40 PM CDT [facility] Department of Physical Medicine & Rehabilitation Progress Note Patient: Baldev Qiu [facility] Record Number: [id number] Date of : 1960 Age: [age] year old 09/02/21 1030 Missed Visit Missed Visit MD at the bedside at time of visit, will attempt to follow up later today pending schedule. Loree Olmedo M.S., [facility] OPERATOR Speech Language Pathologist [phone] * Stefania Jaeger, OT - 09/02/2021 9:39 AM CDT [facility] Physical Medicine and Rehabilitation Occupational Therapy Initial Evaluation Note Patient: Baldev Alva Record Number: [id number] Date of : 1960 Age: [age] year old Co eval with PT Face Mask: yes- therapist wore 2 procedure masks and protective eyewear Tech: no Discharge Recommendation: Patient will benefit from intense 3 hour per day multidisciplinary inpatient therapies due to decrease awareness of deficits and poor safety awareness. In addition to the 1:1 evaluation of the patient, additional eval time was spent completing the chart review prior to the assessment, completing the multidisciplinary plan of care and education plan post evaluation and communicating results of the eval to other treatment team members. Plan: ADL training Cognitive retraining Functional transfer training Endurance training Bed mobility Safety awareness HEP training Physician Orders: Evaluation and Treat Precautions: DIAGNOSIS: Patient Active Problem List: Cerebrovascular accident (CVA) Cerebral brain hemorrhage History of ischemic stroke Diabetes mellitus Acute cystitis without hematuria Hypokalemia Past Medical History: Diagnosis Date ??? HTN (hypertension) SUBJECTIVE: I will get up PATIENT GOALS: To go home Home living: Type of Residence: Private Residence Lives with:: Spouse;Son Steps to Enter: 2 Home Structure: One Story Primary Bedroom: First Floor Primary Bathroom: First Floor Bathroom : Tub/Shower Combo Equipment At Home: Cane-Small Base Quad;Walker-2 Wheeled Prior Function: Mobility: Independent (pt states that he uses cane and wh w at times ) Fallen Within 6 Mos: 1 Have Help at Home?: Yes, there is help at home now Who manages medications?: (pt does medication) At start of therapy session, patient found in bed. Pain: Patient has 0/10 pain Follow-up for pain: No follow-up for pain indicated and patient agreed to proceed with treatment OBJECTIVE: General Appearance: Pt is older male in NAD willing to work with therapy Precautions: IV's: Peripheral line Edema: No abnormal edema There was no vital cart available and the manual cuff was not in working order Cognitive: pt alert Ox3 but periods of confusion and limited ability to recall information. Pt attention is limited. Pt with poor problem solving skills as well as decreased safety awareness Perceptual: Pt with L hemianopsia Upper extremity range of motion: BUE WFL Upper extremity strength: BUE WFL Tone: No abnormal tone Coordination: Serial opp- BUE intact Sensation: No c/o numbness and tingling- BUE intact Patient's activity tolerance: fair FUNCTIONAL MOBILITY Not tested Independent Stand by Assist Minimal Moderate Maximum Dependent Rolling x Supine to/from sit x x Sit to/from Standing x x Bed to/from chair x Functional mobility of ambulation to sink/bathroom with: SBA-min assist using no device . A gait belt and non-slip socks were used for all out of bed mobility. Balance: Static Sitting: good Dynamic Sitting: good minus Static Standing: fair Dynamic Standing: fair minus Activities of Daily Living Feeding:n/a Grooming/Bathing: Stand By Assist Upper Extremity Dressing: Minimal assist with hospital gown Lower Extremity Dressing: SBA with socks Toileting/Transfers: not tested Splint Issued/Checked: none TREATMENT / EDUCATION / EVALUATION: Purpose of Occupational Therapy evaluation explained. While performing mobility, exercise and self care, Patient was instructed in: Functional mobility training/weight bearing status, Pulmonary education and Safety awareness/fall precaution Presented to patient who demonstrates Good understanding of instructions given. INFORMED CONSENT TO TREATMENT: Plan of care including recommended therapy, goals and frequency, as well as potential risks and benefits of treatment/assessment explained to patient. Patient understands and agrees to proceed. ASSESSMENT: Pt continues to benefit from skilled OT to improve independence with activities of daily living, increase strength, endurance, range of motion and decrease pain. Functional performance limited due to: limited activities of daily living, pain, decreased mobility, decreased cognition, upper extremity function, endurance and decreased safety awareness Current Modified Lanier Score: 4 Physician and PT contacted regarding patient status and/or discharge plan. Short Term Goals: Patient will perform lower extremity dressing With stand by assist Patient will perform sit to stand With stand by assist Patient will tolerate AROM Bilateral UE, 15 reps and with good endurance Patient will tolerate treatment 25 minutes and with good endurance Education: good, safety education and HEP education [facility] Goal: Patient to discharge to appropriate next level of inpatient care If patient is discharged from the facility, this note serves as a discharge summary if further occupational therapy visits did not occur. Following therapy session, patient left in bed, with chair alarm on and with call light within reach. * Josy Wadsworth, PT - 09/02/2021 9:39 AM CDT [facility] Physical Medicine and Rehabilitation Physical Therapy Initial Evaluation Note Patient: Baldev Qiu [facility] Record Number: [id number] Date of : 1960 Age: [age] year old Co-eval with OT due to unknown level of assist Face mask: procedural mask and eye protection worn by therapists Tech: No Discharge Recommendation: Patient will benefit from intense 3 hour per day multidisciplinary inpatient therapies In addition to the 1:1 evaluation of the patient, additional eval time was spent completing the chart review prior to the assessment, completing the multidisciplinary plan of care and education plan post evaluation and communicating results of the eval to other treatment team members. Patient currently using no assistive device. Nurse and Occupational Therapy contacted regarding patient status and/or discharge plan. Physician Orders: Evaluation and Treat PRECAUTIONS: Fall Activity Level as tolerated DIAGNOSIS: Patient Active Problem List: Cerebrovascular accident (CVA) Cerebral brain hemorrhage History of ischemic stroke Diabetes mellitus Acute cystitis without hematuria Hypokalemia Past Medical History: Diagnosis Date ??? HTN (hypertension) SUBJECTIVE: States he is on disability due to cardiac surgery PATIENT GOALS: go home Home living: Type of Residence: Private Residence Lives with:: Spouse;Son Steps to Enter: 2 Home Structure: One Story Primary Bedroom: First Floor Primary Bathroom: First Floor Bathroom : Tub/Shower Combo Equipment At Home: Cane-Small Base Quad;Walker-2 Wheeled Prior Function: Mobility: Independent (pt states that he uses cane and wh w at times ) Fallen Within 6 Mos: 1 Have Help at Home?: Yes, there is help at home now Who manages medications?: (pt does medication) At start of therapy session, patient found in bed and with bed alarm on Pain: Patient has 0/10 pain Follow-up for pain: No follow-up for pain indicated and patient agreed to proceed with treatment OBJECTIVE: General Appearance: Middle-aged,male in bed Precautions: IV's: Peripheral line Skin, Incisions, Edema: No edema noted Other: Vitals: (*Assess the 3 levels of oxygen saturations both for room air and 02 unless rest on room air is 88% or less). Rest BP: HR: 86 Sp02 Sp02 99 Room Air L O2 RA Ex/Gait/Activity Without 02 BP: HR: Sp02 Room Air Ex/Gait/Activity With 02 BP: HR: Sp02 L O2 Post Activity BP: HR: 88 Sp02 Sp02 100 L O2 Room Air RA Observations: denied dizziness and SOB MENTAL STATUS: Alert and oriented times 3. Patient with decreased safety awareness and insight. Patient with decreased attention DIRECTION FOLLOWING: Able to follow multi-step commands 100% ROM: LEs WFl STRENGTH: LEs WFL SENSATION:intact to light touch TONE: WFL NEGLECT: minimal L neglect COORDINATION: intact FUNCTIONAL MOBILITY Not Tested Not Applicable Independent Stand by Assist Minimal Moderate Maximum Dependent Rolling x Scooting x x Supine to/from sit x x Sit to/from Stand x x Bed to/ chair x Observation: BALANCE: Sitting Static: good Dynamic: good minus Standing Static: fair Dynamic: fair minus Observation: GAIT: Weight Bearing: WBAT Distance: 100ft x 2 feet Device: gait belt, non-slip socks and none Assistance: Minimal assist Balance: fair minus Steps: NT good minus endurance Observation: unsteady,decreased attention,varied JAZMYN ACTIVITY TOLERANCE: Patient's activity tolerance: good TREATMENT/INTERVENTIONS: evaluation, bed mobility training and gait training EDUCATION: While performing PT, Patient was instructed in:Functional mobility training/weight bearing status and Safety awareness/fall precaution Patient demonstrated Fair understanding of instructions given. INFORMED CONSENT TO TREATMENT: Plan of care including recommended therapy, goals and frequency, discussed with patient who understands and agrees to proceed. ASSESSMENT: Patient's functional performance presently limited due to: medical condition, gait, safety awareness, balance and cognition and Patient would benefit from additional Physical Therapy to achieve the following functional goals to enhance independence. Modified Lanier Score:4 Current Modified Lanier Score: 4 Short Term Goals: Goal Formation With patient Patient will perform bed mobility: Independent Patient will transfer sit to/from stand: Independent Patient will transfer bed to/from chair: Stand By Assist Patient will ambulate 150 feet with Stand By Assist and appropriate AD Patient will perform home exercise program independently Millinery Designer Goal(s): Patient to discharge to appropriate next level of inpatient care Equipment Issued: gait belt Plan:Continue PT If patient is discharged from the facility, this note serves as a discharge summary if further physical therapy visits did not occur. Following therapy session, patient left in bed, with bed alarm on, with call light within reach andwith RNLadi aware * Stefania Jaeger OT - 09/02/2021 9:21 AM CDT [facility] Department of Physical Medicine & Rehabilitation Progress Note Patient: Baldev Qiu Med Record Number: [id number] Date of : 1960 Age: [age] year old 09/02/21 0900 Missed Visit Missed Visit Procedure Off Floor Patient off the floor Medical Imaging Pt also on bedrest for 24 hours. Please update order when appropriate * Yancy Huddleston - 09/02/2021 8:52 AM CDT Social Work Progress Note Discharge Plan Disposition: SW reviewed Pt's chart and attended Stroke Rounds. Pt to received ST/OT/PT to determine recommendations upon discharge. Pt is not medically ready to discharge at this time. SW will continue to follow and assist with disposition until discharge. Transportation (if ambulance rationale): TBD Anticipated Discharge Date: TBD PARKER Meza MBA Doctor Of Podiatric Medicine [phone] 09/02/2021 8:53 AM documented in this encounter H&P Notes * Jocelyn Victoria MD - 09/01/2021 9:07 PM CDT [facility] Stroke History and Physical Baldev Qiu Age: [age] year old Date of : 1960 Date of Admission: 09/01/2021 Hospital Day: 1 Subjective COVID-19 Screening questionnaire for Code Stroke 1. Do you have a fever, cough, shortness of breath or other respiratory complaints? a. Yes b. No 2. Do you have nausea, vomiting, diarrhea or any other GI symptoms? a. Yes b. No 3. Have you recently traveled? (interstate or international) a. Yes b. No 4. Have you been around anyone who has been ill with similar symptoms? a. Yes b. No 5. Have you been in close contact with someone suspected or known to be positive for COVID-19? a. Yes b. No In addition to this list: Is this a young patient with few comorbidities that presents as an atypical candidate for acute stroke? N/A Patient is a 61 year old white male presents with known R occipital bleed from OSH. Date last known well: 3 days ago Time last known well: [facility] Blood Glucose: 136 Blood Pressure: 126/82 Timeline EMS called N/A Code Stroke Paged 2053 Arrival at [facility] ED 2058 NIHSS/GCS Completed 2102 First Imaging Slice 2107 History of Present Illness 61 year old gentleman who was taken to OSH by his family because he was behaving abnormally per family; turning on the stove and ding purposeless acts. At OSH he was found to have hemorrhagic infarctin the right occipital lobe. He was transferred to [facility] for higher level of care. On arrival his NIHSS was 0, neurologic exam was non-focal. 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 CTA showed no spot sign, aneurysm or vascular malformation. Showed a right P3 occlusion. Hemodynamically stable, GCS 15. His UA is concerning for UTI. UDS is negative. He denies any BARRON, dizziness, numbness or tingling. 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 ICH score on arrival was 0. Medical history significant for HTN Past Medical History: Diagnosis Date ??? HTN (hypertension) No past surgical history on file. No medications prior to admission. Allergy No Known Allergies Family History No family history on file. Social History Social History Socioeconomic History ??? Marital status: Spouse name: Not on file ??? Number of children: Not on file ??? Years of education: Not on file ??? Highest education level: Not on file Occupational History ??? Not on file Tobacco Use ??? Smoking status: Former Smoker ??? Smokeless tobacco: Not on file Substance and Sexual Activity ??? Alcohol use: Not Currently ??? Drug use: Never ??? Sexual activity: Not on file Other Topics Concern ??? Not on file Social History Narrative ??? Not on file Review of Systems General - Denies changes in weight or appetite ENT - Denies dental or swallowing difficulties Cardiac - Denies chest pain or palpitations Pulmonary - Denies shortness of breath, cough, or sputum production Gastrointestinal - Denies abdominal pain or changes in bowel habits Genitourinary - Denies changes in bladder habits Endocrine - Denies heat or cold intolerance Musculoskeletal - Denies myalgias or arthralgias Hematological - Denies history of malignancy or blood abnormalities Neurological - See HPI Psychiatric - Denies depression or mood difficulties Objective Patient Vitals for the past 8 hrs: BP Temp Temp src Pulse Resp SpO2 Height Weight 09/02/21 0337 120/84 97.8 ??F (36.6 ??C) Oral 101 18 98 % -- -- 09/01/21 2353 130/71 97.3 ??F (36.3 ??C) Oral 91 18 94 % -- -- 09/01/21 2257 -- -- -- -- -- -- 5' 11 (1.803 m) -- 09/01/21 2206 122/94 -- -- 92 15 100 % -- -- 09/01/212150 -- -- -- 82 10 99 % -- -- 09/01/21 2130 111/61 -- -- 89 20 100 % -- -- 09/01/219 -- -- -- -- 15 -- -- -- 09/01/21 2103 126/82 98.4 ??F (36.9 ??C) Temporal 93 18 98 % -- -- 09/01/21 2100 -- -- -- -- -- -- -- 178 lb 6.4 oz (80.9 kg) Exam: General: A&Ox3, follows commands, NAD HEENT: HC/AT Heart: RRR Lungs: NLB on RA Abdomen: Non-tender, non-distended. Neuro Exam: Mental Status: Awake, alert oriented to person, place, and time, speech is fluent and without dysarthria Cranial Nerves: PERRL, EOMI, L homonymous hemianopia, facial sensation intact, facial expression symmetric, hearing intact to finger rub bilaterally, symmetric palate elevation, shoulder shrug intactand symmetric, tongue protrudes midline Motor: Normal muscle bulk Normal muscle tone 5/5 upper and lower extremity strength Reflexes: 2+ throughout Sensory: Intact to LT Cerebellar: FNF intact /bl Gait and Station: deferred ECG: NSR Hemorrhagic Stroke Documentation Cardiovascular/Cerebrovascular Comorbidities Congestive Heart Failure Hypertensive Heart Disease The ICH Score Age: 0 = Less than 80 GCS score at presentation: 0 = 13-15 ICH volume (cm3): 0 = less than 30 IVH: 0 = No Origin of ICH: 0 = Supratentorial Total ICH Score on Arrival: 0 Problem List: History of ischemic stroke POA: Yes Diabetes mellitus POA: Yes Acute cystitis without hematuria POA: Yes Hypokalemia POA: Yes Cerebral brain hemorrhage POA: Yes Assessment Baldev Qiu is a 61 year old male presenting for hemorrhagic infarct in the right occipital lobe that is acute. Stroke Type: Hemorrhagic stroke Stroke Mechanism: HTN vs Large artery vs ESUS Plan [R occipital stroke with hemorrhagic conversion, ICH score 0]; active - Stroke team will be primary - q4h vitals and neurological checks - Stat CT head for any change in neurological examination - Head of bed > 30?? - Avoid hypoglycemia, hyponatremia, and hyperthermia - Sodium goals: Normonatremia -MRI brain wo contrast -MRA neck w/ contrast -TTE -HOLD ASA for now due to hemorrhage. LDL pending #DM-II -Hemoglobin A1c pending -SSI 0-6 units -Accuchecks ACHS -Hypoglycemia protocol #UA concerning for UTI/Cystitis -Urine culture pending -IV ceftriaxone 2 gram Q24H x3 days #HTN -Denies taking any home medications Core Measures (bleed) tPA administration: no Anti-thrombotic: holding Statin: N/A DVT prophylaxis: holding, SCD Swallow Evaluation: passed PT/OT Evaluation: pending Smoking cessation: will travel counselor Individual Modifiable Risk Factors Hypertension: no Hyperlipidemia: no Diabetes: yes Atrial Fibrillation: no Tobacco: no Banks Radha Victoria MD Neurology Resident Associated attestation - Jeremy Palomino MD - 09/02/2021 1:29 PM CDT Images from the original note were not included. NEUROVASCULAR SERVICE ATTESTATION I saw and examined the patient with the Resident. I have verified all details of the Resident's note and agree with the Resident's documentation with additions and modifications as listed below. Date of Service: 09/02/2021 Length of stay in days: 1 Disposition: TBD Date Estimated to be Medically Ready for Discharge: 09/03/21 Problem List Present on Admission History of ischemic stroke POA: Yes Diabetes mellitus POA: Yes Acute cystitis without hematuria POA: Yes Hypokalemia POA: Yes Cerebral brain hemorrhage POA: Yes There is hemorrhage into the infarct bed. We still have to review the echocardiogram. Jeremy Palomino MD documented in this encounter Procedure Notes * Loree Acevedo - 09/03/2021 8:13 AM CDTProcedure(s): EEG VIDEO MONITORING Called and spoke to Elena his nurse and she is going to go and talk to him and try to get him to agree to the LTM since the order is active. * Loree Acevedo - 09/03/2021 8:04 AM CDTProcedure(s): EEG VIDEO MONITORING At 1600 yesterday 09/02/2021 I went to set up for a LTM on Mr Qiu and at that time he was very angry demanding to go home and refused my test. The nurse tried talking him into it as well with no success. The nurse ultimately call a physician to come and talke to him, so I waited around. Once the doctor came in and tried talking him in to his answer was still the same. Mr Qiu signed my order form saying that he refused testing at the time was then 1617. As I was leaving the room a did hear thedoctor say she was going to draw up AMA papers. This morning I was surprised to see that Mr Qiu isstill admitted. I will call and speak with the nursing staff to see if I can do the test today. documented in this encounter Consult Notes * Gigi Charles, DO - 09/03/2021 2:47 PM CDTAssociated Order(s): IP CONSULT TO CARDIOLOGY [facility] Inpatient Cardiology Consultation Baldev Qiu, 61 year old male : 1960 Admission: 09/01/2021 LOS: 2 History Of Present Illness: Baldev Qiu is a 61 year old male with a past medical history CAD, OH s/p PCI and CABG, HTN, HLD, PVD, COPD, tobacco abuse, T2DM and CVA who presented as a transfer from OSH on 09/01 for a hemorrhagicinfarct in the right occipital lobe seen in consultation for PFO and new reduced EF found on TTE. Patient was initially non focal. On 09/02, patient developed new expressive aphasia and dysarthria forwhich a code stroke was called. CT head showed no new hemorrhage or significant changes. TTE on 09/02 was remarkable for a LV systolic function moderately decreased with a EF of 38%, diffuse wall motion abnormalities, and a intracardiac shunt most consistent with a PFO. Per chart review, patient has a recent OH in 05/01/2021 requiring 4 vessel CABG on 05/04/2021 (MAE to LAD, saphenous to diagonal and obtuse, and saphenous to PDA). Prior to CABG patient was taken to brine room laborer for whichLAD in stent thrombosis was discovered. Patient currently hemodynamically stable saturating 95% on RA. Patient currently on metoprolol succinate XL 25 mg daily and Lovenox 40 mg daily. Patient currently denying any dyspnea, orthopnea, or chest pain. Review of Systems: Pertinent positives include: As listed in HPI. A comprehensive 12 point review of systems was performed and was otherwise negative. Past Medical/Surgical History: Past Medical History: Diagnosis Date ??? HTN (hypertension) No past surgical history on file. Family History: No family history on file. No history of premature coronary artery disease or sudden cardiac Social History: Social History Tobacco Use ??? Smoking status: Former Smoker ??? Smokeless tobacco: Not on file Substance Use Topics ??? Alcohol use: Not Currently ??? Drug use: Never Medications/Allergies: Scheduled: ??? 0.9% NaCl 3 mL Intracatheter q8h ??? cefTRIAXone 2 g Intravenous q24h ??? enoxaparin 40 mg Subcutaneous QDAY ??? gadobutrol Intravenous Contrast - Once ??? insulin aspart 0-6 Units Subcutaneous TID WC ??? iopamidol Intravenous Contrast - Once ??? levETIRAcetam 1,000 mg Oral BID ??? melatonin 3 mg Oral AT BEDTIME ??? metoprolol succinate XL 24hr 25 mg Oral QDAY ??? perflutren lipid microsphere 0.5 mL Intravenous intra-Procedure multiple PRN: ??? SALINE LOCK, INSERT AND MAINTAIN AND 0.9% NaCl AND 0.9% NaCl ??? dextrose IV for hypoglycemia OR dextrose IV for hypoglycemia ??? glucagon ??? glucose (Diabetic Use) ??? glucose (Diabetic Use) gel ??? labetalol OR hydrALAZINE Allergies: Allergies Allergen Reactions ??? Metaclopramide [Other] Nausea and/or Vomiting I have reviewed all medications and allergies. Physical Exam: Vitals: 09/02/21 1551 09/02/21200909/03/21 0408 09/03/21 0750 BP: 134/90 120/79 110/62 110/77 Pulse: 87 95 90 75 Resp: 20 18 19 18 Temp: 98.2 ??F (36.8 ??C) 98.1 ??F (36.7 ??C) 98.2 ??F (36.8 ??C) 98.3 ??F (36.8 ??C) SpO2: 100% 97% 98% 95% Weight: Height: Body mass index is 24.88 kg/m??. Intake/Output Summary (Last 24 hours) at 09/03/2021 0911 Last data filed at 09/02/20212009 Gross per 24 hour Intake 280 ml Output 600 ml Net -320 ml General: Comfortable, in no acute distress. Head: Normocephalic, without obvious abnormality, atraumatic Eyes: Conjunctivae/corneas clear, EOM's intact. Nose: Mucosa normal. No drainage. Throat: Moist mucous membranes, normal dentition Neck: Supple, no JVD noted. Heart: RRR, normal S1& S2. No murmurs/gallop. No JVD or carotid bruits. Lungs: Rhonchi present bilaterally Abdomen: Soft, Nontender, Nondistended, +BS Extremities: Warm, no edema, peripheral pulses +2 throughout Neuro: A&Ox3, grossly non-focal. Skin: Skin color, texture, turgor normal. No rashes or lesions Data Review Labs: Hematology: Recent Labs Component Name 09/03/2124709/02/2120709/01/212258 WBC 9.9 9.5 9.9 HGB 11.4* 11.8* 11.6* HCT 34.8* 35.4 36.3 PLTCOUNT 287 295 295 MCV 92.6 91.9 94.5 MCH 30.3 30.6 30.2 MCHC 32.8 33.3 32.0 Chemistry: Recent Labs Component Name 09/03/2124709/02/2120709/01/212258 NA 138 138 140 POTASSIUM 3.6 3.4* 3.6 CL 107 106 105 CO2 20* 20* 25 ANIONGAP 15 15 14 BUN 7 7 7 CREATININE 0.68* 0.60* 0.67* EGFR >90 >90 >90 GLUCOSE 161* 208* 136* CALCIUM 8.5 8.7 9.3 MAGNESIUM - 1.8 1.9 PHOS - 3.2 3.2 BCR 10 12 10 OSMOLALITY 287 290 290 AGRATIO - - 1.0* Liver and Pancreatic Function: Recent Labs Component Name 09/01/212258 PROT 7.3 ALB 3.6 TBILI 0.6 ALT 9 AST 11 ALKPHOS 92 Coagulation: Recent Labs Component Name 09/03/2124709/02/21207 PT 13.4 13.5 INR 1.0 1.0 Cardiac Enzymes: Recent Labs Component Name 09/02/210 09/02/2120709/01/212258 TROPONINI 0.035* 0.032* 0.042* Arterial Blood Gas: No results for input(s): PH, PCO2, PO2, ESK6RED, BE, FIO2 in the last 39876 hours. Drug Levels: No results for input(s): TACROLIMUS, VANCTROUGH, DIGOXIN in the last 51745 hours. Virology: No results for input(s): SARSCOV2 in the last 28911 hours. Assessment/Recommendations: Baldev Qiu is a 61 year old male with a past medical history CAD, [place] s/p PCI and CABG, HTN, HLD, PVD, COPD, tobacco abuse, T2DM and CVA who presented as a transfer from H on 09/01 for a hemorrhagicinfarct in the right occipital lobe seen in consultation for PFO and new reduced EF found on TTE. - RoPE Score of 2 (0% chance stroke due to embolism) - No evidence of afib per chart and telemetry review. - Ideally patient would be on DAPT for 1 year post OH s/p CABG, but due to ischemic stroke with hemorrhagic conversion, we will defer restarting DAPT to primary team when deemed appropriate. - Recommend starting Entresto 24-26 mg BID or Lisinopril 5 mg daily if there is an insurance coverage issue - Recommend restarting home Coreg - Please see attending attestation for additional recommendations Thank you for involving us in the care of this patient. Please do not hesitate to contact us at anytime for questions or concerns. Gigi Charles D.O. Meteorological Aide, PGY-1 09/03/2021 2:47 PM Associated attestation - Baldev Rousseau MD - 09/03/2021 9:11 PM CDT ATTENDING PHYSICIAN NOTE Patient seen and examined with the resident. I confirm the history, exam, assessment and plan. In addition I note: Chief complaint: CAD, CABG and PCIs. History: past medical history CAD, [place] s/p PCI and CABG, HTN, HLD, PVD, COPD, tobacco abuse, T2DM and CVA who was transferred for Rx of hemorrhagic stroke. New aphasia. CABG x 4 on 05/04/2021. MAE to LAD with ECHO showing occluded LAD and injury. Moderate septal and apical LV infarction (possible source of stroke). Also PFO on bubble ECHO. Modest shuntof 20-50 bubbles per cycle. Dysarthric and Aware. No weakness. Limited to talking. Suspect LV source with embolus and then conversion to hemorrhage. PFO may also be factor. AC when possible . Loop in place. Follow. No Afib but at risk. Follow status, weight, vitals and edema, Titrate meds prn. Keep K > 4, Mg > 2, SaO2 > 92% and Hgb > 9. Social History Socioeconomic History Marital status: Spouse name: Not on file Number of children: Not on file Years of education: Not on file Highest education level: Not on file Occupational History Not on file Tobacco Use Smoking status: Former Smoker Smokeless tobacco: Never Used Substance and Sexual Activity Alcohol use: Not Currently Drug use: Never Sexual activity: Not on file Other Topics Concerns: Not on file Social History Narrative Not on file family history is not on file. -- Metaclopramide [Other] -- Nausea and/or Vomiting Past Medical History: No date: HTN (hypertension) A full 12 point review of systems was performed and was otherwise negative besides what was mentioned in the HPI. Exam: BP 107/71 Pulse 80 Temp 98.4 ??F (36.9 ??C) (Oral) Resp 18 Ht 5' 11 (1.803 m) Wt 178 lb 6.4 oz (80.9 kg) SpO2 97% BMI 24.88 kg/m2 NAD. HEENT: neck supple. Atraumatic. Cor: RRR. No JVD. S4, no murmur, PMI sustained No S3 Resp: clear bilaterally. GI: soft. NT. Ext: no edema Medications were reviewed; please see the resident's note for complete list. Data Review: pertinent lab and cardiac data reviewed Lab Results: Recent Labs Component Name 09/03/21 0248 09/02/21 0208 09/01/21 2259 WBC 9.9 9.5 9.9 HGB 11.4* 11.8* 11.6* HCT 34.8* 35.4 36.3 PLTCOUNT 287 295 295 Recent Labs Component Name 09/03/21 0248 09/02/21 0208 09/01/21 2259 POTASSIUM 3.6 3.4* 3.6 CO2 20* 20* 25 BUN 7 7 7 CREATININE 0.68* 0.60* 0.67* GLUCOSE 161* 208* 136* CALCIUM 8.5 8.7 9.3 Recent Labs Component Name 09/03/21 0248 09/02/21 0208 INR 1.0 1.0 PT 13.4 13.5 Recent Labs Component Name 09/01/21 2259 ALKPHOS 92 ALT 9 AST 11 No results for input(s): TSH in the last 11952 hours. No results for input(s): CKMB, TROPONIN, MYOGLOBIN in the last 28256 hours. No results for input(s): PHART, JVU1WLG, PO2ART, G5OCNMCM, TDG7RBO, BEART, FIO2 in the last 37445 hours. No results for input(s): CHOL, HDL, TRIG, LDLCALC in the last 50368 hours. ECG reviewed: NSR, LAE, :LAD, Anteroseptal infarction with KENNY. CXR reviewed: as reported. Assessment/Plan: CAD, CABG and PCIs. History: past medical history CAD, [place] s/p PCI and CABG, HTN, HLD, PVD, COPD, tobacco abuse, T2DM and CVA who was transferred for Rx of hemorrhagic stroke. New aphasia. CABG x 4 on 05/04/2021. MAE to LAD with ECHO showing occluded LAD and injury. Moderate septal and apical LV infarction (possible source of stroke). Also PFO on bubble ECHO. Modest shuntof 20-50 bubbles per cycle. Dysarthric and Aware. No weakness. Limited to talking. Suspect LV source with embolus and then conversion to hemorrhage. PFO may also be factor. AC when possible . Loop in place. Follow. No Afib but at risk. Follow status, weight, vitals and edema, Titrate meds prn. Keep K > 4, Mg > 2, SaO2 > 92% and Hgb > 9. Please see the resident's note for further details. Baldev Rousseau MD, F.A.C.C. director of rehabilitation and wellness 09/03/2021 2:48 PM * Sherita Avila RD/SARAN - 09/02/2021 2:45 PM CDTAssociated Order(s): IP CONSULT TO NUTRITIONAL SERV Initial Nutrition Assessment Brief Synopsis: Patient is at Nutrition Risk; Specific criteria can be found in assessment below Nutrition Plan: Cardiac Diet Recommendations to Physician: + No new recommendations Comments: RD consulted per stroke protocol. Provided patient with education on the Mediterranean diet. He has been following this diet for awhile per patient. Patient diagnosed with a hemorrhagic stroke. Patient reports having an okay appetite. Only one meal percentage documented at 20%. Last BM PROGRAM DIRECTOR SUBSTANCE ABUSE. RD to follow and monitor any significant changes in nutritional status. Assessment: Med/Surg History and Clinical Diagnoses: dx: CVA, cerebral brain hemmorhage; PMH: behaving abnormally per family; turning on the stove and ding purposeless acts. At OSH he was found to have hemorrhagic infarct in the right occipital lobe, HTN Height: 5' 11 (180.3 cm) Weight: 178 lb 6.4 oz (80.9 kg) BMI: Body mass index is 24.88 kg/m??. BMI Range: Normal (BMI of 24.8) IBW/lb (Calculated) Male: 172 , Recent Weights/Methods 09/01/2021 2100 Weight: 178 lb 6.4 oz (80.9 kg) Weight Method (Utilize Scales): Bedscale Wt Comments: Monitoring for any significant changes in weight fluctuations. Diet order accuracy Current diet order: Cardiac Standard Current supplement order: none Nutrition recommendation: agree with current nutrition order P.O.Intake for the past 48 hrs: % Meal Taken Av % Min: 20 % Max: 20 % Supplement Consumed (mL) last 48 hrs None Food Allergies: No known food allergies GI Concerns: None Chewing/Swallowing: None Pain affecting intake: No Estimated Needs: KCAL: 2430 calories (30 kcal/kg ABW) Protein (g): 122 grams (1.5 g/kg ABW) Fluid (ml): 1 ml/kcal (81 kg) Needs based on: Kcal/kg- (Comment) Recommended Access Route: PO Laboratory values: Recent Labs Component Name 09/02/21 0208 09/01/21 2259 BUN 7 7 CREATININE 0.60* 0.67* NA 138 140 POTASSIUM 3.4* 3.6 CL 106 105 CO2 20* 25 GLUCOSE 208* 136* CALCIUM 8.7 9.3 PROT - 7.3 ALB - 3.6 TBILI - 0.6 ALKPHOS - 92 ALT - 9 AST - 11 ANIONGAP 15 14 BCR 12 10 OSMOLALITY 290 290 AGRATIO - 1.0* EGFR >90 >90 Medications: Current Facility-Administered Medications Medication ??? 0.9% NaCl injection 3 mL And ??? 0.9% NaCl injection 1-10 mL ??? 0.9% NaCl injection 10 mL ??? cefTRIAXone (Rocephin) 2,000 mg in 0.9% NaCl IV 50 mL IVPB ??? dextrose IV 12.5 g Or ??? dextrose IV 25 g ??? gadobutrol (Gadavist) injection ??? glucagon (Glucagen) injection 1 mg ??? glucose (Diabetic Use) (Dex4 Glucose) oral liquid ??? glucose (Diabetic Use) oral gel ??? labetalol (Normodyne; Trandate) injection 10 mg Or ??? hydrALAZINE (Apresoline) injection 10 mg ??? insulin lispro (HumaLOG;ADMelog) 100 UNIT/ML pen 0-6 Units ??? iopamidol (Isovue 370) 76 % contrast ??? levETIRAcetam (Keppra) 3,000 mg in 0.9% NaCl IV 280 mL IVPB ??? perflutren lipid microsphere (Definity) injection 0.5 mL Skin/Wound: WDl per nursing Education needed: Stroke Nutrition Therapy Education Provided: Yes Expected level of compliance: Needs reinforcement Nutrition Care Process (1) Nutrition Diagnostic Statement: Inadequate oral intake related to:: decreased ability to consume or tolerate food and/or fluids due to illness as evidenced by:: oral intake insufficient to meet estimated requirements Nutrition Diagnostic Statement Progress: New diagnostic statement established Nutrition Intervention: Meals and snacks:;Nutrition Education - Content Monitoring: PO intake, labs, weight, BM Evaluation: Nutrition Goal: Total intake will meet estimated nutrient needs Nutrition Goal Timeframe: Throughout stay Nutrition Goal Progress: New goal established Ascom x [phone] * Macy Knight RN - 09/02/2021 1:08 PM CDTAssociated Order(s): IP CONSULT TO PHYSICAL MED AND REHAB [facility] Rehab has initiated an evaluation per stroke protocol. Will continue to follow for medical stability and tolerance/participation in therapies. Thank you for the referral. Macy Knight, RN, BSN Clinical Liaison [facility] [phone] documented in this encounter ED Notes * Yovani Hollingsworth MD - 09/01/2021 9:22 PM CDT Emergency Medicine Attending Note Interval History : Chief Complaint Patient presents with ??? Altered mental status Pt BIBEMS from OSH d/t finding a hemorrhagic bleed on his head CT. Pt was origianally brought to the OSH by his family that he lives with d/t acting erratic for the past 2-3days. Pt has no confusion at baseline but started walking around the house turning on the gas and doing things with no purpose. Pt has had no known injury. Pt has no c/o pain and feels normal to himself. Pt does have hx of aprevious bleed, HTN, and stents but is unsure if he is on a blood thinner. Baldev Qiu is a 61 year old male presenting to the ED as transfer from OSH after CT Head revealed hemorrhagic infarct. Patient's family reports patient began acting erratic 2-3 days ago. Patient denies any associated pain, feels that he is in a normal state of health. Patient endorses BARRON when his symptoms began, but no longer endorses BARRON. No other complaints or modifying factors at this time. Past Medical History: Diagnosis Date ??? HTN (hypertension) No past surgical history on file. Social History Socioeconomic History ??? Marital status: Spouse name: Not on file ??? Number of children: Not on file ??? Years of education: Not on file ??? Highest education level: Not on file Occupational History ??? Not on file Tobacco Use ??? Smoking status: Former Smoker ??? Smokeless tobacco: Not on file Substance and Sexual Activity ??? Alcohol use: Not Currently ??? Drug use: Never ??? Sexual activity: Not on file Other Topics Concern ??? Not on file Social History Narrative ??? Not on file Social Determinants of Health Financial Resource Strain: Not on file Food Insecurity: Not on file Transportation Needs: Not on file Physical Activity: Not on file Stress: Not on file Social Connections: Not on file Intimate Partner Violence: Not on file Housing Stability: Not on file No Known Allergies Review of Systems: (+) positive Review of Systems Constitutional: Negative for chills, diaphoresis and fever. HENT: Negative for congestion and nosebleeds. Eyes: Negative for photophobia and pain. Respiratory: Negative for cough, hemoptysis, sputum production, shortness of breath, wheezing and stridor. Cardiovascular: Negative for chest pain, palpitations, orthopnea and leg swelling. Gastrointestinal: Negative for abdominal pain, constipation, diarrhea, nausea and vomiting. Genitourinary: Negative for dysuria and frequency. Musculoskeletal: Negative for back pain and myalgias. Skin: Negative for rash. Neurological: Positive for headaches. Negative for dizziness, sensory change, focal weakness, loss of consciousness and weakness. Physical Exam Vitals: 09/01/21 2129 09/01/21 2130 09/01/21 2151 09/01/21 2206 BP: 111/61 122/94 Pulse: 89 82 92 Resp: 15 20 10 15 Temp: SpO2: 100% 99% 100% Weight: Physical Exam Constitutional: General: He is not in acute distress. Appearance: Normal appearance. He is not ill-appearing, toxic-appearing or diaphoretic. HENT: Head: Normocephalic and atraumatic. Nose: Nose normal. Mouth/Throat: Mouth: Mucous membranes are moist. Pharynx: Oropharynx is clear. Eyes: Pupils: Pupils are equal, round, and reactive to light. Cardiovascular: Rate and Rhythm: Normal rate and regular rhythm. Pulses: Normal pulses. Pulmonary: Effort: Pulmonary effort is normal. Breath sounds: Normal breath sounds. Abdominal: General: Abdomen is flat. There is no distension. Tenderness: There is no abdominal tenderness. There is no guarding. Musculoskeletal: General: No tenderness. Normal range of motion. Cervical back: Normal range of motion and neck supple. Skin: General: Skin is warm and dry. Neurological: General: No focal deficit present. Mental Status: He is alert and oriented to person, place, and time. Mental status is at baseline. Psychiatric: Mood and Affect: Mood normal. Behavior: Behavior normal. Medical Decision Making: Problem List: 1. AMS - Ddx: CVA vs TIA vs ICH vs other - PLAN: Code Stroke see below for further orders/plan. Orders Placed This Encounter ??? CT BRAIN STROKE ??? CT ANGIO BRAIN ??? MRI BRAIN WO CONTRAST ??? CBC W/O DIFFERENTIAL ??? BASIC METABOLIC PANEL (CALCIUM TOTAL) ??? PT-INR [facility] ??? TROPONIN I ??? URINE DRUG SCREEN IMMUNOASSAY ??? URINALYSIS REFLEX TO MICROSCOPIC NO CULTURE ??? MAGNESIUM BLOOD ??? PHOSPHORUS BLOOD ??? MAGNESIUM BLOOD ??? PHOSPHORUS BLOOD ??? CBC W/O DIFFERENTIAL ??? COMPREHENSIVE METABOLIC PANEL ??? IP CONSULT TO VASCULAR NEUROLOGY (if not already completed in the ED) ??? IP CONSULT TO CASE MANAGEMENT ??? IP CONSULT TO NUTRITIONAL SERV ??? IP CONSULT TO RESEARCH CHEF ??? CONSULT TO REHAB ??? PULSE OXIMETRY, CONTINUOUS ??? EKG 12-LEAD ??? iopamidol (Isovue 370) 76 % contrast ??? AND Linked Order Group ??? 0.9% NaCl injection 3 mL ??? 0.9% NaCl injection 1-10 mL ??? OR Linked Order Group ??? labetalol (Normodyne; Trandate) injection 10 mg ??? hydrALAZINE (Apresoline) injection 10 mg Data Review: (All Labs/Imaging/ECG, other diagnostics independently interpreted by me.) - MONITORING: The patient's Oxygen Saturation Monitor was interpreted by me. The reading was 100%. The patient was on RA at the time of the reading. This is interpreted as normal. - LABS: Labs Reviewed CBC W/O DIFFERENTIAL BASIC METABOLIC PANEL (CALCIUM TOTAL) PT-INR [facility] TROPONIN I TROPONIN I TROPONIN I URINE DRUG SCREEN IMMUNOASSAY URINALYSIS REFLEX TO MICROSCOPIC NO CULTURE MAGNESIUM BLOOD PHOSPHORUS BLOOD MAGNESIUM BLOOD PHOSPHORUS BLOOD CBC W/O DIFFERENTIAL COMPREHENSIVE METABOLIC PANEL - IMAGING: CT BRAIN STROKE (Results Pending) CT ANGIO BRAIN (Results Pending) MRI BRAIN WO CONTRAST (Results Pending) No results found. - MEDS: Medications iopamidol (Isovue 370) 76 % contrast (75 mL Intravenous $ Given - Contrast 09/01/212110) 0.9% NaCl injection 3 mL (has no administration in time range) And 0.9% NaCl injection 1-10 mL (has no administration in time range) labetalol (Normodyne; Trandate) injection 10 mg (has no administration in time range) Or hydrALAZINE (Apresoline) injection 10 mg (has no administration in time range) ED COURSE Patient arrives as Code Stroke, ED and Stroke team present on arrival. CT Angio showed ICH, known prior to patient arrival from OSH. 10:05 PM: After discussion with Stroke floor, the patient will be admitted to their service for further management of care. -I have reviewed the diagnostic findings with the patient and they have had an opportunity to ask me any questions they have about care, diagnosis, and reason for admission. The patient states understanding and agrees to admission. This patient was evaluated during the COVID-19 pandemic. Orders and Medicine administered during this encounter: Orders Placed This Encounter ??? CT BRAIN STROKE ??? CT ANGIO BRAIN ??? MRI BRAIN WO CONTRAST ??? CBC W/O DIFFERENTIAL ??? BASIC METABOLIC PANEL (CALCIUM TOTAL) ??? PT-INR [facility] ??? TROPONIN I ??? URINE DRUG SCREEN IMMUNOASSAY ??? URINALYSIS REFLEX TO MICROSCOPIC NO CULTURE ??? MAGNESIUM BLOOD ??? PHOSPHORUS BLOOD ??? MAGNESIUM BLOOD ??? PHOSPHORUS BLOOD ??? CBC W/O DIFFERENTIAL ??? COMPREHENSIVE METABOLIC PANEL ??? IP CONSULT TO VASCULAR NEUROLOGY (if not already completed in the ED) ??? IP CONSULT TO CASE MANAGEMENT ??? IP CONSULT TO NUTRITIONAL SERV ??? IP CONSULT TO RESEARCH CHEF ??? CONSULT TO REHAB ??? PULSE OXIMETRY, CONTINUOUS ??? EKG 12-LEAD ??? iopamidol (Isovue 370) 76 % contrast ??? AND Linked Order Group ??? 0.9% NaCl injection 3 mL ??? 0.9% NaCl injection 1-10 mL ??? OR Linked Order Group ??? labetalol (Normodyne; Trandate) injection 10 mg ??? hydrALAZINE (Apresoline) injection 10 mg Medications iopamidol (Isovue 370) 76 % contrast (75 mL Intravenous $ Given - Contrast 09/01/21 7600) 0.9% NaCl injection 3 mL (has no administration in time range) And 0.9% NaCl injection 1-10 mL (has no administration in time range) labetalol (Normodyne; Trandate) injection 10 mg (has no administration in time range) Or hydrALAZINE (Apresoline) injection 10 mg (has no administration in time range) Clinical Impression: 1. Cerebrovascular accident (CVA), unspecified mechanism 2. Cerebral brain hemorrhage Disposition: Admit to Stroke floor By signing my name below, I, Raleigh Sharp, attest that this documentation has been prepared under the direction and in the presence of Dr. Hollingsworth. Signed: Mackenzie Moraes. Date: 09/01/2021. I, Dr. Hollingsworth, personally performed the services described in this documentation. All medical record entries made by the scribe were at my direction and in my presence. I have reviewed the chart and agree that the record reflects my personal performance and is accurate and complete. Electronically signed: Dr. Hollingsworth * Lazarus Lopez RN - 09/01/2021 9:20 PM CDT Bed: AC19 Expected date: Expected time: Means of arrival: Comments: Parr 1T * Manuela Lambert RN - 09/01/2021 9:07 PM CDT First slice in code stroke complete * Manuela Lambert RN - 09/01/2021 9:03 PM CDT Pt BIBEMS from OSH d/t finding a hemorrhagic bleed on his head CT. Pt was origianally brought to the OSH by his family that he lives with d/t acting erratic for the past 2-3days. Pt has no confusion at baseline but started walking around the house turning on the gas and doing things with no purpose. Pt has had no known injury. Pt has no c/o pain and feels normal to himself. Pt does have hx of aprevious bleed, HTN, and stents but is unsure if he is on a blood thinner. 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 He developed new expressive aphasia and dysarthria this afternoonof 09/02/2021. Code stroke was paged. Timeline Code Stroke Paged [phone] NIHSS Completed 1414 First Imaging Slice 1425 tPA orders placed N/A tPA begun N/A NIHSS Stroke Scale: Interval: Baseline Time: 1414 Person Administering Scale: Dre Quan MD 1a Level of consciousness 0 = Alert; keenly responsive. 1b LOC questions 2 = Answers neither question correctly. 1c LOC commands 0 = Performs both tasks correctly. 2 Best gaze 0 = Normal. 3 Visual 0 = No visual loss. 4 Facial Palsy 0 = Symmetrical movements. 5a Motor Left Arm 0 = No drift; limb holds 90 (or 45) degrees for full 10 seconds. 5b Motor Right Arm 0 = No drift; limb holds 90 (or 45) degrees for full 10 seconds. 6a Motor Left Leg 0 = No drift; leg holds 30 degree position for full 5 seconds. 6b Motor Right Leg 0 = No drift; leg holds 30 degree position for full 5 seconds. 7 Limb Ataxia 0 = Absent. 8 Sensory 0 = Normal; no sensory loss. 9 Best Language 1 = Ilyz-qa-vkjgsdlw aphasia; some obvious loss of fluency or facility of comprehension, without significant limitation on ideas expressed or form of expression. Reduction of speech and/or comprehension. 10 Dysarthria 1 = Hnqm-da-gvmburfv dysarthria; patient slurs at least some words and, at worst, canbe understood with some difficulty. 11 Extinction/Inattention 1 = Visual, tactile, auditory, spatial, or personal inattention, or extinction to bilateral simultaneous stimulation in one of the sensory modalities. Total - 5 CT head was done and it showed No new hemorrhage, no significant change from prior, no expansion ofprior hemorrhage. He was also noted to have urinary incontinence which raised the suspicion of seizure (he also have a history of UTI) He was loaded with Keppra 3g(40 mg/kg). Ordered cEEG and started patient on Keppra 1000 mg BID. Patient's assessment and plan discussed with Dr Palomino and Stroke Fellow Dr. Ellsworth. Signed: Dre Quan. PGY-1 Neurology documented in this encounter Plan of Treatment Scheduled Orders Name Type Priority Associated Diagnoses Orde r Schedule EEG VIDEO MONITORING Neurology Routine ONCE for 1 Occurrences starting 09/02/2021 until 09/02/2021 documented as of this encounter Procedures Procedure Name Priority Date/Time Associated Diagnosis Comments CARDIAC EKG ORDER 09/08/2021 2:1 7 PM CDT GLUCOSE - POINT OF CARE Routine 09/03/2021 11:49 AM CDT GLUCOSE - POINT OF CARE Routine 09/03/2021 7:48 AM CDT PT-INR [facility] Routine 09/03/2021 2:48 AM CDT Cerebral brain hemorrhage (HCC) HEMOGLOBIN A1C Routine 09/03/2021 2:48 AM CDT Cerebral brain hemorrhage (HCC) CBC W/O DIFFERENTIAL Routine 09/03/2021 2:48 AM CDT Cerebral brain hemorrhage (HCC) BASIC METABOLIC PANEL (CALCIUM TOTAL) Routine 09/03/2021 2:48 AM CDT Cerebral brain hemorrhage (HCC) GLUCOSE - POINT OF CARE Routine 09/02/2021 8:39 PM CDT GLUCOSE - POINT OF CARE Routine 09/02/2021 4:[address] BRAIN STROKE Routine 09/02/2021 2:25 PM CDT Cerebrovascular accident (CVA), unspecified mechanism (HCC) GLUCOSE - POINT OF CARE Routine 09/02/2021 2:08 PM CDT GLUCOSE - POINT OF CARE Routine 09/02/2021 1:47 PM CDT ECHO COMPLETE STAT 09/02/2021 1:19 PM CDT Cerebrovascular accident (CVA), unspecified mechanism (HCC) Cerebral brain hemorrhage (HCC) GLUCOSE - POINT OF CARE Routine 09/02/2021 11:22 AM CDT GLUCOSE - POINT OF CARE Routine 09/02/2021 9:13 AM CDT MRI ANGIO NECK W CONTRAST STAT 09/02/2021 9:06 AM CDT Cerebrovascular accident (CVA), unspecified mechanism (HCC) MRI BRAIN WO CONTRAST STAT 09/02/2021 9:05 AM CDT Cerebrovascular accident (CVA), unspecified mechanism (HCC) TROPONIN I Routine 09/02/2021 4:20 AM CDT Cerebral brain hemorrhage (HCC) URINALYSIS REFLEX TO MICROSCOPIC NO CULTURE Routine 09/02/2021 3:33 AM CDT Cerebral brain hemorrhage (HCC) URINE DRUG SCREEN IMMUNOASSAY STAT 09/02/2021 3:33 AM CDT Cerebral brain hemorrhage (HCC) PT-INR [facility] Routine 09/02/2021 2:08 AM CDT Cerebral brain hemorrhage (HCC) TROPONIN I Routine 09/02/2021 2:08 AM CDT Cerebral brain hemorrhage (HCC) CBC W/O DIFFERENTIAL Routine 09/02/2021 2:08 AM CDT Cerebral brain hemorrhage (HCC) BASIC METABOLIC PANEL (CALCIUM TOTAL) Routine 09/02/2021 2:08 AM CDT Cerebral brain hemorrhage (HCC) PHOSPHORUS BLOOD Routine 09/02/2021 2:08 AM CDT Cerebral brain hemorrhage (HCC) MAGNESIUM BLOOD Routine 09/02/2021 2:08 AM CDT Cerebral brain hemorrhage (HCC) TROPONIN I Routine 09/01/2021 10:59 PM CDT Cerebral brain hemorrhage (HCC) CBC W/O DIFFERENTIAL STAT 09/01/2021 10:59 PM CDT Cerebral brain hemorrhage (HCC) COMPREHENSIVE METABOLIC PANEL STAT 09/01/2021 10:59 PM CDT Cerebral brain hemorrhage (HCC) PHOSPHORUS BLOOD STAT 09/01/2021 10:5 9 PM CDT Cerebral brain hemorrhage (HCC) MAGNESIUM BLOOD STAT 09/01/2021 10:59 PM CDT Cerebral brain hemorrhage (HCC) EKG 12-LEAD STAT 09/01/2021 10:46 PM CDT Cerebrovascular accident (CVA), unspecified mechanism (HCC) Cerebral brain hemorrhage (HCC) CT ANGIO BRAIN STAT 09/01/2021 9:18 PM CDT Cerebrovascular accident (CVA), unspecified mechanism (HCC) CT BRAIN STROKE STAT 09/01/2021 9:09 PM CDT Cerebrovascular accident (CVA), unspecified mechanism (HCC) documented in this encounter Results * CARDIAC EKG ORDER (09/08/2021 2:17 PM CDT) Narrative 09/08/2021 2:17 PM CDT Ordered by an unspecified provider. Scanned Document CARDIAC SERVICES ORD ERABLES * (ABNORMAL) GLUCOSE - POINT OF CARE (09/03/2021 11:49 AM CDT) Glucose WB/POC 197(H) 70 - 115 mg/dL 09/03/2021 11:53 AM CDT [facility] Specimen Type Venous 09/03/2021 11:53 AM CDT [facility] Blood BLOOD SPECIMEN / Unknown 09/03/2021 11:49 AM CDT 09/03/2021 11:53 AM CDT Jeremy Palomino MD LAB - POINT OF CARE ORDERABLES [facility] [address] [place] [address], [place] [phone] * (ABNORMAL) GLUCOSE - POINT OF CARE (09/03/2021 7:48 AM CDT) Glucose WB/POC 186(H) 70 - 115 mg/dL 09/03/2021 7:53 AM CDT [facility] Specimen Type Venous 09/03/2021 7:53 AM CDT [facility] Blood BLOOD SPECIMEN / Unknown 09/03/2021 7:48 AM CDT 09/03/2021 7:53 AM CDT Jeremy Palomino MD LAB - POINT OF CARE ORDERABLES [facility] [address] [place] [address], [place] [phone] * PT-INR [facility] (09/03/2021 2:48 AM CDT) PT 13.4 12.1 - 14.8 Seconds 09/03/2021 3:20 AM CDT [facility] INR 1.0 See Comment 09/03/2021 3:20 AM CDT [facility] Comment:The suggested therap eutic range for standard coumadin (warfarin) therapy is an INR of 2.0-3.0. For high-risk patients (Mechanical Mitral Valve Prosthesis, etc.), the suggested prophylactic therapeutic range is an INR of 2.5-3.5. Blood BLOOD SPECIMEN / Unknown Lab Venipuncture / Unknown 09/03/2021 2:48 AM CDT 09/03/2021 2:58 AM CDT Jeremy Palomino MD LAB - COAGULATION O RDERABLES [facility] [address] [place] [address], [facility] [phone] * (ABNORMAL) BASIC METABOLIC PANEL (CALCIUM TOTAL) (09/03/2021 2:48 AM CDT) BUN 7 7 - 26 mg/dL 09/03/2021 3:[address] [facility] Creatinine 0.68(L) 0.71 - 1.16 mg/dL 09/03/2021 3:[address] [facility] Sodium 138 136 - 145 mmol/L 09/03/2021 3:[address] [facility] Potassium 3.6 3.5 - 4.5 mmol/L 09/03/2021 3:[address] [facility] Chloride 107 98 - 107 mmol/L 09/03/2021 3:[address] [facility] CO2 20(L) 22 - 29 mmol/L 09/03/2021 3:[address] [facility] Glucose 161(H) 70 - 115 mg/dL 09/03/2021 3:[address] [facility] Calcium 8.5 8.4 - 10.2 mg/dL 09/03/2021 3:[address] [facility] Anion Gap 15 8 - 18 09/03/2021 3:[address] [facility] BUN/Creatinine Ratio 10 7 - 23 09/03/2021 3:[address] [facility] Osmolality Calculated 287 270 - 300 mOsm/kg 09/03/2021 3:[address] [facility] eGFR by CKD-EPI >90 >=90 mL/min/1.7 3 m2 09/03/2021 3:[address] [facility] Blood BLOOD SPECIMEN / Unknown Lab Venipuncture / Unknown 09/03/2021 2:48 AM CDT 09/03/2021 3:04 AM CDT Jeremy Palomino MD LAB - CHEMISTRY ORD ERABLES [facility] [address] [place] [address], [facility] [phone] * (ABNORMAL) CBC W/O DIFFERENTIAL (09/03/2021 2:48 AM CDT) WBC 9.9 3.5 - 10.5 10? 3 /uL 09/03/2021 3:13 AM T [facility] RBC 3.76(L) 4.30 - 5.70 10? 6 /uL 09/03/2021 3:[address] [facility] Hemoglobin 11.4(L) 12.0 - 17.6 g/dL 09/03/2021 3:[address] [facility] Hematocrit 34.8(L) 35.2 - 51.7 % 09/03/2021 3:[address] [facility] MCV 92.6 80.7 - 98.3 fL 09/03/2021 3:[address] [facility] MCH 30.3 26.7 - 34.0 pg 09/03/2021 3:[address] [facility] MCHC 32.8 30.8 - 35.9 g/dL 09/03/2021 3:[address] [facility] Platelet Count 287 150 - 400 10? 3 /uL 09/03/2021 3:[address] [facility] RDW-SD 46.2 36.0 - 50.0 fL 09/03/2021 3:[address] [facility] RDW-CV 13.6 11.2 - 14.8 % 09/03/2021 3:[address] [facility] MPV 11.3 9.4 - 12.9 fL 09/03/2021 3:[address] [facility] nRBC Absolute 0.00 0 10? 3 /uL 09/03/2021 3:[address] [facility] nRBC Auto 0.0 0 /100 WBC 09/03/2021 3:13 AM CDT [facility] Blood BLOOD SPECIMEN / Unknown Lab Venipuncture / Unknown 09/03/2021 2:48 AM CDT 09/03/2021 3:04 AM CDT Jeremy Palomino MD LAB - HEMATOLOGY OR DERABLES Performing Organization Address [facility] Co de Phone Number [address] [address], [facility] [phone] * (ABNORMAL) HEMOGLOBIN A1C (09/03/2021 2:48 AM CDT) Hemoglobin A1c 11.5(H) <=5.6 % 09/03/2021 10:28 AM T [facility] Estimated Average Glucose 283 mg/dL 09/03/2021 10:28 AM T [facility] Comment: HbA1c Interpretation: Normal : < 5.7% Pre-diabetes: 5.7-6.4% Diabetes: Equal to or greater than 6.5% Test results diagnostic of diabetes should be repeated for confirmation. Treatment target values recommended by ADA and other clinical organizations should be used to evaluate metabolic control in patients. Reference: [place] [employer], Standards of Care in Diabetes -2020 In patients 70 years and older consider HbA1c target range of 7.0-7.5% (Reference: Sam Besnon et al. JAMDA. 2012) The Sebia assay for the measurement of HbA1c is a National Glycohemoglobin Standardization Program (NGSP) certified method. Blood BLOOD SPECIMEN / Unknown Lab Venipuncture / Unknown 09/03/2021 2:48 AM CDT 09/03/2021 3:04 AM CDT Jeremy Palomino MD LAB - CHEMISTRY ORD ERABLES Performing Organization Address City/[facility]/ZIP Co de Phone Number [facility] [address] [place] [address], [facility] [phone] * (ABNORMAL) GLUCOSE - POINT OF CARE (09/02/2021 8:39 PM CDT) Glucose WB/POC 201(H) 70 - 115 mg/dL 09/02/2021 8:52 PM CDT [facility] Specimen Type Cap Fingerstick 2021 8:52 PM CDT [facility] Blood BLOOD SPECIMEN / Unknown 09/02/2021 8:39 PM CDT 09/02/2021 8:52 PM CDT Jeremy Palomino MD LAB - POINT OF CARE ORDERABLES Performing Organization Address City/[facility]/ZIP Co de Phone Number [address] [address], [facility] [phone] * (ABNORMAL) GLUCOSE - POINT OF CARE (09/02/2021 4:15 PM CDT) Glucose WB/POC 147(H) 70 - 115 mg/dL 09/02/2021 4:16 PM CDT [facility] Specimen Type Cap Fingerstick 2021 4:16 PM CDT [facility] Blood BLOOD SPECIMEN / Unknown 09/02/2021 4:15 PM CDT 09/02/2021 4:16 PM CDT Jeremy Palomino MD LAB - POINT OF CARE ORDERABLES Performing Organization Address [facility] Co de Phone Number [address] [address], [facility] [phone] * CT BRAIN STROKE (09/02/2021 2:25 PM CDT) Anatomical Region Laterality Modality Head Computed Tomogra phy 09/02/2021 2:39 PM CDT Impressions 09/02/2021 3:51 PM CDT IMPRESSION: 1.No significant change in the right occipital lobe infarction and hemorrhagic transformation. 2.No new acute intra or extra-axial hemorrhage identified. 3.No significant change in the size of the ventricles. 4.No obvious new territorial infarct identified. Dictated by Vini Reyes MD, Trade Promotion Analyst I, Dr. VALENTINE CESPEDES have personally reviewed [...] tissue abnormality is identified. Procedure Note Valentine Cespedes MD - 09/02/2021 EXAM: HEAD CT WITHOUT [...] infarct identified. Dictated by Vini Reyes MD, Trade Promotion Analyst I, Dr. VALENTINE CESPEDES have personally reviewed and interpreted this examination/study. This report was electronically signed by VALENTINE CESPEDES on09/02/2021 3:51 PM . Jeremy Palomino MD CT ORDERABLES * (ABNORMAL) GLUCOSE - POINT OF CARE (09/02/2021 2:08 PM CDT) [facility] Signature Glucose WB/POC 258(H) 70 - 115 mg/dL 09/02/2021 2:13 PM CDT [facility] Specimen Type Cap Fingerstick 2021 2:13 PM CDT [facility] Blood BLOOD SPECIMEN / Unknown 09/02/2021 2:08 PM CDT 09/02/2021 2:13 PM CDT Jeremy Palomino MD LAB - POINT OF CARE ORDERABLES [facility] [address] [place] [address], [facility] [phone] * (ABNORMAL) GLUCOSE - POINT OF CARE (09/02/2021 1:47 PM CDT) Glucose WB/POC 222(H) 70 - 115 mg/dL 09/02/2021 1:48 PM CDT [facility] Specimen Type Cap Fingerstick 2021 1:48 PM CDT [facility] Blood BLOOD SPECIMEN / Unknown 09/02/2021 1:47 PM CDT 09/02/2021 1:48 PM CDT Jeremy Palomino MD LAB - POINT OF CARE ORDERABLES [facility] [address] [place] [address], [place] [phone] * ECHO COMPLETE (09/02/2021 1:19 PM CDT) Anatomical Region Laterality Modality Chest Echo 09/02/2021 11:1 4 AM CDT Narrative Procedure Note Marcelina Barrios MD - 09/02/2021 Jeremy Palomino MD ECHOCARDIOGRAPHY RA DIANT * (ABNORMAL) GLUCOSE - POINT OF CARE (09/02/2021 11:22 AM CDT) Glucose WB/POC 254(H) 70 - 115 mg/dL 09/02/2021 11:23 AM CDT [facility] Specimen Type Cap Fingerstick 2021 11:23 AM CDT [facility] Blood BLOOD SPECIMEN / Unknown 09/02/2021 11:22 AM CDT 09/02/2021 11:23 AM CDT Jeremy Palomino MD LAB - POINT OF CARE ORDERABLES [facility] [address] [place] [address], [place] [phone] * (ABNORMAL) GLUCOSE - POINT OF CARE (09/02/2021 9:13 AM CDT) Glucose WB/POC 200(H) 70 - 115 mg/dL 09/02/2021 9:15 AM CDT [facility] Specimen Type Cap Fingerstick 2021 9:15 AM CDT [facility] Blood BLOOD SPECIMEN / Unknown 09/02/2021 9:13 AM CDT 09/02/2021 9:15 AM CDT Jeremy Palomino MD LAB - POINT OF CARE ORDERABLES [facility] [address] [place] [address], [facility] [phone] * MRI ANGIO NECK W CONTRAST (09/02/2021 [...] intravenous contrast INDICATION: Subacute infarct in right NATIONAL SALES MANAGER territory. TECHNIQUE: MR angiogram of the neck was performed according to standard protocol after administration of 8 mL of Gadavist intravenously. MIP reformatted images were obtained. COMPARISON: CT angiogram of the brain from 09/01/2021 was reviewed. Procedure Note Jaqui Culp MD - 09/02/2021 MR angiography of the neck with intravenous contrast INDICATION: Subacute infarct in right NATIONAL SALES MANAGER territory. TECHNIQUE: MR angiogram of the neck [...] AM CDT IMPRESSION: 1.Subacute infarct in right NATIONAL SALES MANAGER territory with small-volume hemorrhagic transformation. Mild noncritical [...] are unremarkable. IMPRESSION: 1.Subacute infarct in right NATIONAL SALES MANAGER territory with small-volume hemorrhagic transformation. Mild noncritical mass effect. 2.Intraventricular extension of hemorrhage. No hydrocephalus. 3.No significant change since CT from 09/01/2021. This report was electronically signed by JAQUI CULP on 09/02/2021 11:11 AM . Jeremy Palomino MD MR ORDERABLES * (ABNORMAL) TROPONIN I (09/02/2021 4:20 AM CDT) Troponin I 0.035(H) <0.032 ng/mL 09/02/2021 5:13 AM CDT [facility] Blood BLOOD SPECIMEN / Unknown Lab Venipuncture / Unknown 09/02/2021 4:20 AM CDT 09/02/2021 4:42 AM CDT Jeremy Palomino MD LAB - CHEMISTRY ORD ERABLES [address] [address], [facility] [phone] * (ABNORMAL) URINALYSIS REFLEX TO MICROSCOPIC NO CULTURE (09/02/2021 3:33 AM CDT) Color UA Yellow Straw, Yellow 09/02/2021 3:[address] [facility] Clarity UA Clear Clear 09/02/2021 3:[address] [facility] Specific [place]onal[place] UA 1.047(H) 1.005 - 1.030 09/02/2021 3:[address] [facility] pH UA 7.0 5.0 - 8.0 pH 09/02/2021 3:[address] [facility] Protein UA Negative Negative 09/02/2021 3:[address] [facility] Glucose UA 3+(A) Negative 09/02/2021 3:[address] [facility] Ketone UA 1+(A) Negative 09/02/2021 3:[address] [facility] Bilirubin UA Negative Negative 09/02/2021 3:[address] [facility] Blood UA Negative Negative 09/02/2021 3:[address] [facility] Nitrite UA Negative Negative 09/02/2021 3:[address] [facility] Leukocyte Esterase 2+(A) Negative 09/02/2021 3:[address] [facility] Urobilinogen UA Negative Negative mg/dL 09/02/2021 3:[address] [facility] RBC UA 6-10(A) None Seen, 0-2, 3-5 /HPF 09/02/2021 3:[address] [facility] WBC UA 6-10(A) None Seen, 0-5 /HPF 09/02/2021 3:[address] [facility] Bacteria UA Trace(A) None /HPF 09/02/2021 3:[address] [facility] Squamous Epithelial Cells UA 0-2 None Seen, 0-2, 3-5 /HPF 09/02/2021 3:[address] [facility] Mucus UA 1+ /LPF 09/02/2021 3:[address] [facility] Urine URINE SPECIMEN OBTAINED BY CLEAN CATCH PROCEDURE / Unknown Collection / Unknown 09/02/2021 3:33 AM CDT 09/02/2021 3:38 AM CDT [facility] - 09/02/2021 3:48 AM T Jeremy Palomino MD LAB - URINALYSIS OR DERABLES [facility] [address] [place] [address], [facility] [phone] * URINE DRUG SCREEN IMMUNOASSAY (09/02/2021 3:33 AM CDT) [facility] Amphetamines Screen Urine Negative Negative: < 1000 ng/mL 09/02/2021 3:[address] [facility] Barbiturates Screen Urine Negative Negative: < 200 ng/mL 09/02/2021 3:57 AM T [facility] Benzodiazepine Screen Urine Negative Negative: < 200 ng/mL 09/02/2021 3:[address] [facility] Opiates Urine Negative Negative: < 300 ng/mL 09/02/2021 3:[address] [facility] Cocaine Metabolites Urine Negative Negative: < 300 ng/mL 09/02/2021 3:[address] [facility] Phencyclidine Screen Urine Negative Negative: < 25 ng/ml 09/02/2021 3:[address] [facility] Cannabinoids Screen Urine Negative Negative: <50 ng/mL 09/02/2021 3:[address] [facility] Methadone Screen Urine Negative Negative: < 300 ng/mL 09/02/2021 3:[address] [facility] Fentanyl Screen Urine Negative Negative: <1.0 ng/mL 09/02/2021 3:[address] [facility] Urine URINE / Unknown Collection / Unknown 09/02/2021 3:33 AM CDT 09/02/2021 3:38 AM CDT [facility] - 09/02/2021 3:57 AM CDT The Urine Toxicology Screening Panel does not screen for Propoxyphene, Meprobamate, Carisoprodol, Trazodone, hslh-ctn-pwkadmg medications and/or volatiles (Acetone, Isopropanol, Methanol or Ethylene Glycol). Ethanol, Salicylate, Acetaminophen, Tricyclic Antidepressants and several therapeutic drugs may be individually assayed in serum or plasma specimen. Toxicology testing by the [facility] is an aid to medical diagnosis and treatment of patients. No documented chain of custody was maintained. Results are intended to be used for clinical purposes only. ? Jeremy Palomino MD LAB - URINE FIRE RANGER RY ORDERABLES Performing Organization Address [facility] Co de Phone Number [facility] [address] [place] [address], [place] [phone] * PHOSPHORUS BLOOD (09/02/2021 2:08 AM CDT) Phosphorus 3.2 2.8 - 5.1 mg/dL 09/02/2021 3:17 AM CDT [facility] Blood BLOOD SPECIMEN / Unknown Lab Venipuncture / Unknown 09/02/2021 2:08 AM CDT 09/02/2021 2:49 AM CDT Jeremy Palomino MD LAB - CHEMISTRY ORD ERABLES Performing Organization Address City/[facility] Co de Phone Number [facility] [address] [place] [address], [place] [phone] * MAGNESIUM BLOOD (09/02/2021 2:08 AM CDT) Magnesium 1.8 1.6 - 2.6 mg/dL 09/02/2021 3:17 AM CDT [facility] Blood BLOOD SPECIMEN / Unknown Lab Venipuncture / Unknown 09/02/2021 2:08 AM CDT 09/02/2021 2:49 AM CDT Jeremy Palomino MD LAB - CHEMISTRY ORD ERABLES [address] [address], [facility] [phone] * PT-INR [facility] (09/02/2021 2:08 AM CDT) PT 13.5 12.1 - 14.8 Seconds 09/02/2021 3:01 AM CDT [facility] INR 1.0 See Comment 09/02/2021 3:[address] [facility] Comment:The suggested therap eutic range for standard coumadin (warfarin) therapy is an INR of 2.0-3.0. For high-risk patients (Mechanical Mitral Valve Prosthesis, etc.), the suggested prophylactic therapeutic range is an INR of 2.5-3.5. Blood BLOOD SPECIMEN / Unknown Lab Venipuncture / Unknown 09/02/2021 2:08 AM CDT 09/02/2021 2:45 AM CDT Jeremy Palomino MD LAB - COAGULATION O RDERABLES [address] [address], [facility] [phone] * (ABNORMAL) BASIC METABOLIC PANEL (CALCIUM TOTAL) (09/02/2021 2:08 AM CDT) BUN 7 7 - 26 mg/dL 09/02/2021 3:17 AM [facility] Creatinine 0.60(L) 0.71 - 1.16 mg/dL 09/02/2021 3:17 AM [facility] Sodium 138 136 - 145 mmol/L 09/02/2021 3:[address] [facility] Potassium 3.4(L) 3.5 - 4.5 mmol/L 09/02/2021 3:17 AM [facility] Chloride 106 98 - 107 mmol/L 09/02/2021 3:17 AM [facility] CO2 20(L) 22 - 29 mmol/L 09/02/2021 3:[address] [facility] Glucose 208(H) 70 - 115 mg/dL 09/02/2021 3:[address] [facility] Calcium 8.7 8.4 - 10.2 mg/dL 09/02/2021 3:[address] [facility] Anion Gap 15 8 - 18 09/02/2021 3:[address] [facility] BUN/Creatinine Ratio 12 7 - 23 09/02/2021 3:[address] [facility] Osmolality Calculated 290 270 - 300 mOsm/kg 09/02/2021 3:[address] [facility] eGFR by CKD-EPI >90 >=90 mL/min/1.7 3 m2 09/02/2021 3:[address] [facility] Blood BLOOD SPECIMEN / Unknown Lab Venipuncture / Unknown 09/02/2021 2:08 AM CDT 09/02/2021 2:49 AM CDT Jeremy Palomino MD LAB - CHEMISTRY ORD ERABLES [facility] [address] [place] [id number], [facility] [phone] * (ABNORMAL) CBC W/O DIFFERENTIAL (09/02/2021 2:08 AM CDT) WBC 9.5 3.5 - 10.5 10? 3 /uL 09/02/2021 3:[address] [facility] RBC 3.85(L) 4.30 - 5.70 10? 6 /uL 09/02/2021 3:[address] [facility] Hemoglobin 11.8(L) 12.0 - 17.6 g/dL 09/02/2021 3:[address] [facility] Hematocrit 35.4 35.2 - 51.7 % 09/02/2021 3:[address] [facility] MCV 91.9 80.7 - 98.3 fL 09/02/2021 3:[address] [facility] MCH 30.6 26.7 - 34.0 pg 09/02/2021 3:[address] [facility] MCHC 33.3 30.8 - 35.9 g/dL 09/02/2021 3:19 AM T [facility] Platelet Count 295 150 - 400 10? 3 /uL 09/02/2021 3:19 AM T [facility] RDW-SD 46.1 36.0 - 50.0 fL 09/02/2021 3:19 AM T [facility] RDW-CV 13.6 11.2 - 14.8 % 09/02/2021 3:19 AM T [facility] MPV 11.6 9.4 - 12.9 fL 09/02/2021 3:19 AM T [facility] nRBC Absolute 0.00 0 10? 3 /uL 09/02/2021 3:19 AM T [facility] nRBC Auto 0.0 0 /100 WBC 09/02/2021 3:19 AM T [facility] Blood BLOOD SPECIMEN / Unknown Lab Venipuncture / Unknown 09/02/2021 2:08 AM CDT 09/02/2021 2:49 AM CDT Jeremy Palomino MD LAB - HEMATOLOGY OR DERABLES [address] [address], [facility] [phone] * (ABNORMAL) TROPONIN I (09/02/2021 2:08 AM CDT) [facility] Troponin I 0.032(H) <0.032 ng/mL 09/02/2021 3:19 AM CDT [facility] Blood BLOOD SPECIMEN / Unknown Lab Venipuncture / Unknown 09/02/2021 2:08 AM CDT 09/02/2021 2:49 AM CDT Jeremy Palomino MD LAB - CHEMISTRY ORD ERABLES [address] [address], [place] [phone] * (ABNORMAL) COMPREHENSIVE METABOLIC PANEL (09/01/2021 10:59 PM CDT) BUN 7 7 - 26 mg/dL 09/02/2021 12:[address] [facility] Creatinine 0.67(L) 0.71 - 1.16 mg/dL 09/02/2021 12:[address] [facility] Sodium 140 136 - 145 mmol/L 09/02/2021 12:[address] [facility] Potassium 3.6 3.5 - 4.5 mmol/L 09/02/2021 12:[address] [facility] Chloride 105 98 - 107 mmol/L 09/02/2021 12:[address] [facility] CO2 25 22 - 29 mmol/L 09/02/2021 12:[address] [facility] Glucose 136(H) 70 - 115 mg/dL 09/02/2021 12:[address] [facility] Calcium 9.3 8.4 - 10.2 mg/dL 09/02/2021 12:[address] [facility] Protein Total 7.3 6.0 - 8.3 g/dL 09/02/2021 12:[address] [facility] Albumin 3.6 3.4 - 5.0 g/dL 09/02/2021 12:[address] [facility] Bilirubin Total 0.6 0.2 - 1.2 mg/dL 09/02/2021 12:[address] [facility] Alkaline Phosphatase 92 40 - 150 U/L 09/02/2021 12:[address] [facility] ALT 9 5 - 55 U/L 09/02/2021 12:[address] [facility] AST 11 5 - 34 U/L 09/02/2021 12:[address] [facility] Anion Gap 14 8 - 18 09/02/2021 12:[address] [facility] BUN/Creatinine Ratio 10 7 - 23 09/02/2021 12:[address] [facility] Osmolality Calculated 290 270 - 300 mOsm/kg 09/02/2021 12:[address] [facility] Albumin/Globulin Ratio 1.0(L) 1.1 - 2.3 09/02/2021 12:[address] [facility] eGFR by CKD-EPI >90 >=90 mL/min/1.7 3 m2 09/02/2021 12:[address] [facility] Blood BLOOD SPECIMEN / Unknown Lab Venipuncture / Unknown 09/01/2021 10:59 PM CDT 09/01/2021 11:55 PM CDT Jeremy Palomino MD LAB - CHEMISTRY ORD ERABLES [facility] [address] [place] [address] [phone] * (ABNORMAL) CBC W/O DIFFERENTIAL (09/01/2021 10:59 PM CDT) WBC 9.9 3.5 - 10.5 10? 3 /uL 09/02/2021 12:[address] [facility] RBC 3.84(L) 4.30 - 5.70 10? 6 /uL 09/02/2021 12:[address] [facility] Hemoglobin 11.6(L) 12.0 - 17.6 g/dL 09/02/2021 12:[address] [facility] Hematocrit 36.3 35.2 - 51.7 % 09/02/2021 12:[address] [facility] MCV 94.5 80.7 - 98.3 fL 09/02/2021 12:[address] [facility] MCH 30.2 26.7 - 34.0 pg 09/02/2021 12:[address] [facility] MCHC 32.0 30.8 - 35.9 g/dL 09/02/2021 12:[address] [facility] Platelet Count 295 150 - 400 10? 3 /uL 09/02/2021 12:[address] [facility] RDW-SD 47.8 36.0 - 50.0 fL 09/02/2021 12:[address] [facility] RDW-CV 13.7 11.2 - 14.8 % 09/02/2021 12:[address] [facility] MPV 11.7 9.4 - 12.9 fL 09/02/2021 12:[address] [facility] nRBC Absolute 0.00 0 10? 3 /uL 09/02/2021 12:01 AM CDT [facility] nRBC Auto 0.0 0 /100 WBC 09/02/2021 12:01 AM CDT [facility] Blood BLOOD SPECIMEN / Unknown Lab Venipuncture / Unknown 09/01/2021 10:59 PM CDT 09/01/2021 11:55 PM CDT Jeremy Palomino MD LAB - HEMATOLOGY OR DERABLES [address] [address], [place] [phone] * PHOSPHORUS BLOOD (09/01/2021 10:59 PM CDT) Phosphorus 3.2 2.8 - 5.1 mg/dL 09/02/2021 12:21 AM CDT [facility] Blood BLOOD SPECIMEN / Unknown Lab Venipuncture / Unknown 09/01/2021 10:59 PM CDT 09/01/2021 11:55 PM CDT Jeremy Palomino MD LAB - CHEMISTRY ORD ERABLES Performing Organization Address [facility]/ZIP Co de Phone Number [address] [address], [place] [phone] * MAGNESIUM BLOOD (09/01/2021 10:59 PM CDT) Magnesium 1.9 1.6 - 2.6 mg/dL 09/02/2021 12:21 AM CDT [facility] Blood BLOOD SPECIMEN / Unknown Lab Venipuncture / Unknown 09/01/2021 10:59 PM CDT 09/01/2021 11:55 PM CDT Jeremy Palomino MD LAB - CHEMISTRY ORD ERABLES Performing Organization Address City/[facility]/ZIP Co de Phone Number [address] [address], [place] [phone] * (ABNORMAL) TROPONIN I (09/01/2021 10:59 PM CDT) Pathologist [facility] Troponin I 0.042(H) <0.032 ng/mL 09/02/2021 12:25 AM CDT [facility] Blood BLOOD SPECIMEN / Unknown Lab Venipuncture / Unknown 09/01/2021 10:59 PM CDT 09/01/2021 11:55 PM CDT Jeremy Palomino MD LAB - CHEMISTRY ORD ERABLES [facility] [address] [place] [address], [facility] [phone] * EKG 12-LEAD (09/01/2021 10:46 PM CDT) Pathologist [facility] Ventricular Rate 87 BPM [facility] MUSE Atrial Rate 87 BPM [facility] MUSE P-R Interval 194 ms [facility] MUSE QRS Duration ms 90 ms [facility] MUSE Q-T Interval ms 366 ms [facility] MUSE QTC Calculation (Bezet) 440 ms [facility] MUSE Calculated P [place] 54 degrees SL MUSE Calculated R [place] -35 degrees [facility] MUSE Calculated T [place] 85 degrees [facility] MUSE Interpretation EKG NORMAL SINUS RHYTHM LEFT AXIS DEVIATION ANTEROLATERAL INFARCT , AGE UNDETERMINED ABNORMAL ECG WHEN COMPARED WITH ECG OF 30-AUG-2006 06:00, QRS AXIS SHIFTED LEFT ANTERIOR INFARCT IS NOW PRESENT ANTEROLATERAL INFARCT IS NOW PRESENT Confirmed by Rian Mcfarland ([id number]) on 09/06/2021 11:27:36 PM [facility] MUSE 09/01/2021 10:4 6 PM CDT 09/06/2021 11:27 PM CDT Jeremy Palomino MD ECG ORDERABLES Performing Organization Address [facility] Co de Phone Number [facility] MUSE * CT ANGIO BRAIN (09/01/2021 9:18 PM CDT) Anatomical Region Laterality Modality Head Computed Tomogra phy 09/01/2021 11:3 0 PM CDT Impressions 09/02/2021 8:20 AM CDT IMPRESSION: 1.No aneurysms, spot sign, or signs of a high flow vascular malformation identified to account for the patient's right [employer] infarct with hemorrhagic transformation. 2.The dural venous sinuses are not well opacified with contrast and cannot be evaluated. These findings were discussed in detail with the patient's care provider, Dr. Victoria by Dr. Sebastian via telephone at 9:35 PM on 09/01/2021 with readback comprehension and verification. Dictated by Coco Sebastian MD (head resident). I, Dr. VALENTINE CESPEDES have personally reviewed [...] identified to account for the patient's right [employer] infarct withhemorrhagic transformation. 2.The dural venous sinuses are not well opacified with contrast andcannot be evaluated. These findings were discussed in detail with the patient's careprovider, Dr. Victoria by Dr. Sebastian via telephone at 9:35 PM on 09/01/2021 with readback comprehension and verification. Dictated by Coco Sebastian MD (head resident). I, Dr. VALENTINE CESPEDES have personally reviewed and interpreted this examination/study. This report was electronically signed by VALENTINE CESPEDES on09/02/2021 8:20 AM . Jeremy Palomino MD CT ORDERABLES * CT BRAIN STROKE (09/01/2021 9:09 PM CDT) Anatomical Region Laterality Modality Head Computed Tomogra phy 09/01/2021 10:0 3 PM CDT Impressions 09/02/2021 8:11 AM CDT IMPRESSION: 1.The large area of hypoattenuation in the right temporal occipital lobe most likely represents is compatible with a subacute right [employer] territory infarct with hemorrhagic transformation. 2.Suspect intraventricular extension to the adjacent right lateral ventricle. There is no midline shift or hydrocephalus. These findings were discussed in detail with the patient's care provider, Dr. Victoria by Dr. Sebastian via telephone at 9:17 PM on 09/01/2021 with readback comprehension and verification. Dictated by Coco Sebastian MD (head resident). I, Dr. VALENTINE CESPEDES have personally reviewed and interpreted this examination/study. This report was electronically signed by VALENTINE CESPEDES ??on 09/02/2021 8:11 AM . Narrative 09/02/2021 8:[address] BRAIN STROKE EXAMINATION: Computed tomography (CT) of the head without contrast DATE: 09/01/2021 9:18 PM HISTORY: I63.9: Cerebrovascular accident (CVA), unspecified mechanism history of acute stroke one month ago TECHNIQUE: CT of the head was performed without contrast according to standard protocol. COMPARISON: No prior study is available for comparison at the time of this dictation. FINDINGS: There is a large area of hypoattenuation with internal scattered areas of hyperdensity in the right temporal occipital lobe, compatible with a subacute infarct with hemorrhagic conversion. This is associated with partial effacement of the adjacent cerebral sulci and posterior aspect of the right lateral ventricle. The thorne-white matter differentiation otherwise appears normal. Mild periventricular white matter hypoattenuation is indicative of chronic small vessel ischemic disease. There is suggestion of extension of hemorrhage to the right lateral ventricle (series 5 image 55). There is moderate cerebral volume loss with associated ex vacuo dilatation of the remaining ventricles. The basilar cisterns are patent. No midline shift is seen. There is also a chronic lacunar infarct in the left cerebellar hemisphere (series 3 image 27, series 5 image 57). There is moderate vascular calcification of the carotid siphons and V4 segments of bilateral vertebral arteries. No acute calvarial fracture is identified. The orbits appear normal. The paranasal sinuses are clear. The mastoid air cells are clear. No soft tissue abnormality is identified. Procedure Note Valentine Cespedes MD - 09/02/2021 CT BRAIN STROKE EXAMINATION: Computed tomography (CT) of the head without contrast DATE: 09/01/2021 9:18 PM HISTORY: I63.9: Cerebrovascular accident (CVA), unspecified mechanism history of acute stroke one month ago TECHNIQUE: CT of the head was performed without contrast according to standard protocol. COMPARISON: No prior study is available for comparison at the time ofthis dictation. FINDINGS: There is a large area of hypoattenuation with internal scattered areasof hyperdensity in the right temporal occipital lobe, compatible with a subacute infarct with hemorrhagic conversion. This is associated with partial effacement of the adjacent cerebral sulci and posterior aspectof the right lateral ventricle. The thorne-white matter differentiation otherwise appears normal. Mild periventricular white matter hypoattenuation is indicative of chronic small vessel ischemic disease. There is suggestion of extension of hemorrhage to the right lateral ventricle (series 5 image 55). There is moderate cerebral volume losswith associated ex vacuo dilatation of the remaining ventricles. The basilar cisterns are patent. No midline shift is seen. There is also a chronic lacunar infarct in the left cerebellar hemisphere (series 3 image 27, series 5 image 57). There is moderate vascular calcification of the carotid siphons and V4 segments of bilateral vertebral arteries. No acute calvarial fracture is identified. The orbits appear normal. The paranasal sinuses are clear.The mastoid air cells are clear. No soft tissue abnormality is identified. IMPRESSION: 1.The large area of hypoattenuation in the right temporal occipital lobe most likely represents is compatible with a subacute right [employer] territory infarct with hemorrhagic transformation. 2.Suspect intraventricular extension to the adjacent right lateral ventricle. There is no midline shift or hydrocephalus. These findings were discussed in detail with the patient's careprovider, Dr. Victoria by Dr. Sebastian via telephone at 9:17 PM on 09/01/2021 with readback comprehension and verification. Dictated by Coco Sebastian MD (head resident). I, Dr. VALENTINE CESPEDES have personally reviewed and interpreted this examination/study. This report was electronically signed by VALENTINE CESPEDES on09/02/2021 8:11 AM . Jeremy Palomino MD CT ORDERABLES documented in this encounter Visit Diagnoses Diagnosis Cerebrovascular accident (CVA), unspecified mechanism (HCC)- Primary Cerebral brain hemorrhage (HCC) Intracerebral hemorrhage Essential (primary) hypertension Unspecified essential hypertension Cerebral brain hemorrhage (HCC) Intracerebral hemorrhage History of ischemic stroke Diabetes mellitus (HCC) Acute cystitis without hematuria Acute cystitis Hypokalemia Hypopotassemia documented in this encounter Administered Medications Inactive Administered Medications - up to 3 most recent administrations Medication Order MAR Action Action Date Dose Rate Site 0.9% NaCl injection 1-10 mL 1-10 mL, Intracatheter, PRN, Other, peripheral line flush, Starting on Tue09/01/21 at 2224, Until Tue09/03/21 at 1742, Flush peripheral IV catheter with 1-10 mL of normal saline before and after medications and prn to clear blood from the line or to verify patency. 0.9% NaCl injection 10 mL 10 mL, Intracatheter, INTRA-PROCEDURE MULTIPLE, Starting on Tue09/02/21 at 1252, Until Tue09/02/21 at 1651, For Echo Procedure - Per Protocol Agitate saline before administration. $ Given 09/02/2021 1:03 PM CDT 10 mL $ Given 09/02/2021 1:02 PM CDT 10 mL 0.9% NaCl injection 3 mL 3 mL, Intracatheter, EVERY 8 HOURS, First dose on Tue09/01/21 at 2300, Until Discontinued, Flush peripheral IV catheter with 3 mL of normal saline every 8 hours. $ Given 09/03/2021 2:00 PM CDT 3 mL $ Given 09/02/2021 8:21 PM CDT 3 mL $ Given 09/02/2021 1:58 PM CDT 3 mL cefTRIAXone (Rocephin) 2,000 mg in 0.9% NaCl IV 50 mL IVPB 2,000 mg (2 g), at 100 mL/hr, Intravenous, EVERY 24 HOURS, 3 doses, First dose on Tue09/02/21 at 0500, Last dose on Tue09/04/21 at 0500, Ceftriaxone can cause precipitation when administered with calcium-containing fluids, including LR. Flush lines with a compatible fluid, such as D5W or NS before and after ceftriaxone dose. Admin through separate lumens is acceptable. , Indication for anti-infective therapy: Documented infection, Site of anti-infective therapy: Urine/Genitourinary $ New Bag/Syringe 09/03/2021 5:29 AM CDT 2,000 mg 100 mL/hr $ New Bag/Syringe 09/02/2021 4:48 AM CDT 2,000 mg 100 mL /hr dextrose IV 12.5 g 12.5 g, Intravenous, PRN, Other, Bedside Glucose less than 70 mg/dL -If NOT able to eat and/or NPO and with IV Access, Starting on Tue09/02/21 at 0425, Until Kristina 09/03/21 at 1742, If NOT able to eat and/or NPO and with IV Access: For Bedside Glucose 54-69 mg/dL give 12.5 g Dextrose IV STAT For Bedside Glucose LESS than 54 mg/dl verify with a second Bedside Glucose (from a different site) and give 25 g Dextrose IV STAT Re-check and Re-treat blood glucose EVERY , 10-25 minutes until blood glucose GREATER than or equal to 80 mg/dl. NOTIFY PROVIDER OF HYPOGLYCEMIC EVENT. dextrose IV 25 g 25 g, Intravenous, PRN, Other, Bedside Glucose less than 70 mg/dL -If NOT able to eat and/or NPO and with IV Access, Starting on Tue09/02/21 at 0425, Until Tue09/03/21 at 1742, If NOT able to eat and/or NPO and with IV Access: For Bedside Glucose 54-69 mg/dL give 12.5 g Dextrose IV STAT For Bedside Glucose LESS than 54 mg/dl verify with a second Bedside Glucose (from a different site) and give 25 g Dextrose IV STAT Re-check and Re-treat blood glucose EVERY , 10-25 minutes until blood glucose GREATER than or equal to 80 mg/dl. NOTIFY PROVIDER OF HYPOGLYCEMIC EVENT. enoxaparin (Lovenox) injection 40 mg 40 mg, Subcutaneous, DAILY, First dose on Tue09/03/21 at 0900, Until Discontinued, (for prefilled syringes) do not expel air bubble from the syringe prior to the injection Remind Patient to not rub injection site. Could cause hematoma. gadobutrol (Gadavist) injection Intravenous, CONTRAST ONCE, Starting on Tue09/02/21 at 0906, Until Tue09/03/21 at 1742 $ Given - Contrast 09/02/2021 9:07 AM CDT 8 mL glucagon (Glucagen) injection 1 mg 1 mg, Intramuscular, PRN, Bedside Glucose less than 70 mg/dL - If NOT able to eat and/or NPO and withOUT IV Access, Starting on Tue09/02/21 at 0425, Until Kristina 09/03/21 at 1742, If NOT able to eat and/or NPO and NO IV Access: For Bedside glucose 54-69 mg/dL Give 1 mg IM or SQ For Bedside Glucose LESS than 54 mg/dl verify with a second bedside glucose (from a different site) and Give 1 mg IM or SQ Re-check and Re-treat blood glucose EVERY 10-25 minutes until blood glucose GREATER than or equal to 80 mg/dl. NOTIFY PROVIDER OF HYPOGLYCEMIC EVENT. Reconstitute vial with 1 mL of sterile water for injection for a final concentration of 1 mg/mL; shake vial gently; use immediately and discard unused portion glucose (Diabetic Use) (Dex4 Glucose) oral liquid Oral, PRN, Other, Bedside Glucose less than 70 mg/dL -If able to eat and does not have swallowing difficulties, Starting on Tue09/02/21 at 0425, Until Kristina 09/03/21 at 1742, If able to eat and can swallow thin liquids: For Bedside Glucose 54 - 69 mg/dL Give 15 grams of oral carbohydrates - 1 glucose liquid (see MAR) If patient refuses glucose liquid, then offer: - 4 ounces of fruit juice OR - 4 ounces non-diet soda OR - 8 ounces of fat-free milk For Bedside Glucose LESS than 54 mg/dL verify with a second Bedside Glucose (from a different site) - If pt is symptomatic, do not delay treatment Consider confirming the glucose with a STAT laboratory test Give 30 grams of oral carbohydrates - 2 glucose liquid (see MAR) If patient refuses glucose liquid, then offer: - 8 ounces of fruit juice OR - 8 ounces non-diet soda OR - 16 ounces of fat-free milk Re-check and Re-treat blood glucose EVERY 10-25 minutes until blood glucose GREATER than or equal to 80 mg/dl. NOTIFY PROVIDER OF HYPOGLYCEMIC EVENT. glucose (Diabetic Use) oral gel Oral, PRN, Other, Bedside Glucose less than 70 mg/dL -If able to eat and does not have swallowing difficulties, Starting on Tue09/02/21 at 0425, Until Tue09/03/21 at 1742, If able to eat and is better able to swallow gel: For Bedside Glucose 54 - 69 mg/dL Give 15 grams of oral carbohydrates - 1 glucose gel (see MAR) If patient refuses glucose gel, then offer: - 4 ounces of fruit juice OR - 4 ounces non-diet soda OR - 8 ounces of fat-free milk For Bedside Glucose LESS than 54 mg/dL verify with a second Bedside Glucose (from a different site) - If pt is symptomatic, do not delay treatment Consider confirming the glucose with a STAT laboratory test Give 30 grams of oral carbohydrates - 2 glucose gels (see MAR) If patient refuses glucose gel, then offer: - 8 ounces of fruit juice OR - 8 ounces non-diet soda OR - 16 ounces of fat-free milk Re-check and Re-treat blood glucose EVERY 10-25 minutes until blood glucose GREATER than or equal to 80 mg/dl. NOTIFY PROVIDER OF HYPOGLYCEMIC EVENT. hydrALAZINE (Apresoline) injection 10 mg 10 mg, Intravenous, EVERY 20 MIN PRN, Hypertension, For SBP > 140 and HR <70, Starting on Tue09/01/21 at 2227, Until Tue09/03/21 at 1742, Over 1-2 minutes until target BP is reached. Use if labetalol is ineffective, patient Heart Rate LESS than 60, or patient meets other exclusion criteria for labetalol. insulin lispro (HumaLOG;ADMelog) 100 UNIT/ML pen 0-6 Units 0-6 Units, Subcutaneous, 3 TIMES DAILY WITH MEALS, First dose on Tue09/02/21 at 0800, Until Discontinued, DO NOT HOLD CORRECTION BOLUS EVEN IF PATIENT IS NPO. If patient is eating meals and has orders for Mealtime Insulin Bolus, combine and give at the same time. BEDSIDE GLUCOSE MUST BE PERFORMED AND DOCUMENTED WITHIN 30-60 MINUTES OF CORRECTION INSULIN ADMINISTRATION. BG (mg/dL) LESS than 70 = follow Hypoglycemic guidelines 150-200 = give 1 unit 201-250 = give 2 units, 251-300 = give 3 units 301-350 = give 4 units 351-400 = give 5 units and notify physician GREATER than 400 = give 6 units and notify physician $ Given 09/03/2021 12:09 PM CDT 1 Units Left Arm $ Given 09/03/2021 8:00 AM CDT 1 Units Ab dominal Tissue $ Given 09/02/2021 1:59 PM CDT 2 Units Ab dominal Tissue iopamidol (Isovue 370) 76 % contrast Intravenous, CONTRAST ONCE, Starting on Tue09/01/21 at 2110, Until Tue09/03/21 at 1742 $ Given - Contrast 09/01/2021 9:11 PM CDT 75 mL labetalol (Normodyne; Trandate) injection 10 mg 10 mg, Intravenous, EVERY 15 MIN PRN, Hypertension, For SBP > 140 and HR > 70, Starting on Tue09/01/21 at 2227, Until Tue09/03/21 at 1742, IVP over 1-2 minutes until target blood pressure goal is reached. If BP out of goal range after 2 doses may use alternative agent or contact physician. Cumulative dose not to exceed 300 mg/24 hrs. Exclusion criteria for Labetolol: Asthma, Cardiac Failure, Heart Block, Heart rate less than 60, or Severe Cardiac Abnormalites. levETIRAcetam (Keppra) 3,000 mg in 0.9% NaCl IV 280 mL IVPB 3,000 mg, at 560 mL/hr, Intravenous, ONCE, 1 dose, On Tue09/02/21 at 1445 $ New Bag/Syringe 09/02/2021 4:02 PM CDT 3,000 mg 560 mL/hr levETIRAcetam (Keppra) tablet 1,000 mg 1,000 mg, Oral, 2 TIMES DAILY, First dose (after last modification) on Tue09/02/21 at 2100, Until Discontinued, Do not crush or chew because of TASTE only. $ Given 09/03/2021 8:00 AM CDT 1,000 mg $ Given 09/02/2021 8:21 PM CDT 1,000 mg melatonin tablet 3 mg 3 mg, Oral, AT BEDTIME, First dose on Tue09/02/21 at 1915, Until Discontinued $ Given 09/02/2021 8:21 PM CDT 3 mg metoprolol succinate XL 24hr (Toprol XL) tablet 25 mg 25 mg, Oral, DAILY, First dose on Tue09/03/21 at 0945, Until Discontinued, May cut in half but do not crush or chew $ Given 09/03/2021 10:18 AM CDT 25 mg perflutren lipid microsphere (Definity) injection 0.5 mL 0.5 mL, Intravenous, INTRA-PROCEDURE MULTIPLE, 6 doses, Starting on Tue09/02/21 at 1252, Until Tue09/03/21 at 1742, For Echo Procedure - Per Protocol Give slowly Shake well before using. $ Given 09/02/2021 1:06 PM CDT 0.5 mL potassium chloride (Klor-Con) packet 40 mEq 40 mEq, Oral, ONCE, 1 dose, On Tue09/02/21 at 0445, DISSOLVE IN 120 ML OF COLD WATER OR JUICE AND DRINK SLOWLY $ Given 09/02/2021 4:43 AM CDT 40 mEq documented in this encounter Active and Recently Administered Medications Times are shown in CDT. Scheduled Medication Order 09/01/2021 09/02/2021 09/03/2021 0.9% NaCl injection 10 mL () 10 mL, Intracatheter, INTRA-PROCEDURE MULTIPLE, Starting on Tue09/02/21 at 1252, Until Tue09/02/21 at 1651, For Echo Procedure - Per Protocol Agitate saline before administration. 1302 ($ Given - Provider: DI Aguirre)1303 ($ Given - Provider: DI Aguirre) 0.9% NaCl injection 3 mL(Linked Group 1) 3 mL, Intracatheter, EVERY 8 HOURS, First dose on Tue09/01/21 at 2300, Until Discontinued, Flush peripheral IV catheter with 3 mL of normal saline every 8 hours. 2315 (Not Administered - Provider: Tiana King RN - Reason: See Comments) 0400 (Not Administered - Provider: Tiana King RN - Reason: Patient sleeping)1358 ($ Given - Provider: Ladi Parr RN)2020 ($ Given - Provider: Adriana Contreras, DEEPIKA) 0621 (Not Administered - Provider: Adriana Contreras RN - Reason: Patient sleeping)1400 ($ Given - Provider: Elena Burnett RN) cefTRIAXone (Rocephin) 2,000 mg in 0.9% NaCl IV 50 mL IVPB 2,000 mg (2 g), at 100 mL/hr, Intravenous, EVERY 24 HOURS, 3 doses, First dose on Tue09/02/21 at 0500, Last dose on Tue09/04/21 at 0500, Ceftriaxone can cause precipitation when administered with calcium-containing fluids, including LR. Flush lines with a compatible fluid, such as D5W or NS before and after ceftriaxone dose. Admin through separate lumens is acceptable. , Indication for anti-infective therapy: Documented infection, Site of anti-infective therapy: Urine/Genitourinary 0448 ($ New Bag/Syringe - Provider: Tiana King, RN)0518 (Stopped - Provider: Tiana King RN) 0529 ($ New Bag/Syringe - Provider: Adriana Contreras, RN)0608 (Stopped - Provider: Adriana Contreras, RN) enoxaparin (Lovenox) injection 40 mg 40 mg, Subcutaneous, DAILY, First dose on Tue09/03/21 at 0900, Until Discontinued, (for prefilled syringes) do not expel air bubble from the syringe prior to the injection Remind Patient to not rub injection site. Could cause hematoma. 0900 (Not Administered - Provider: Elena Burnett RN - Reason: Refused-Patient) gadobutrol (Gadavist) injection Intravenous, CONTRAST ONCE, Starting on Tue09/02/21 at 0906, Until Tue09/03/21 at 1742 0907 ($ Given - Contrast - Provider: Sloane Lezama, RT(R)(MR)) insulin lispro (HumaLOG;ADMelog) 100 UNIT/ML pen 0-6 Units 0-6 Units, Subcutaneous, 3 TIMES DAILY WITH MEALS, First dose on Tue09/02/21 at 0800, Until Discontinued, DO NOT HOLD CORRECTION BOLUS EVEN IF PATIENT IS NPO. If patient is eating meals and has orders for Mealtime Insulin Bolus, combine and give at the same time. BEDSIDE GLUCOSE MUST BE PERFORMED AND DOCUMENTED WITHIN 30-60 MINUTES OF CORRECTION INSULIN ADMINISTRATION. BG (mg/dL) LESS than 70 = follow Hypoglycemic guidelines 150-200 = give 1 unit 201-250 = give 2 units, 251-300 = give 3 units 301-350 = give 4 units 351-400 = give 5 units and notify physician GREATER than 400 = give 6 units and notify physician 0925 ($ Given - Provider: Ladi Parr RN - Comment: [phone] ($ Given - Provider: Ladi Parr RN - Comment: [phone] (Not Administered - Provider: Ladi Parr RN - Reason: Per Administration Instructions) 0800 ($ Given - Provider: Elena Burnett, DEEPIKA)1209 ($ Given - Provider: Elena Burnett, RN) iopamidol (Isovue 370) 76 % contrast Intravenous, CONTRAST ONCE, Starting on Tue09/01/21 at 2110, Until Tue09/03/21 at 1742 211 ($ Given - Contrast - Provider: Dinora Smyth, RT(R)CT) levETIRAcetam (Keppra) 3,000 mg in 0.9% NaCl IV 280 mL IVPB (COMPLETED) 3,000 mg, at 560 mL/hr, Intravenous, ONCE, 1 dose, On Tue09/02/21 at 1445 1602 ($ New Bag/Syringe - Provider: Ladi Parr, DEEPIKA)1702 (Stopped - Provider: Ladi Parr, RN) levETIRAcetam (Keppra) tablet 1,000 mg 1,000 mg, Oral, 2 TIMES DAILY, First dose (after last modification) on Tue09/02/21 at 2100, Until Discontinued, Do not crush or chew because of TASTE only. 2020 ($ Given - Provider: Adriana Contreras, DEEPIKA) 0800 ($ Given - Provider: Elena Burnett, DEEPIKA) melatonin tablet 3 mg 3 mg, Oral, AT BEDTIME, First dose on Tue09/02/21 at 1915, Until Discontinued 2020 ($ Given - Provider: Adriana Contreras, DEEPIKA) metoprolol succinate XL 24hr (Toprol XL) tablet 25 mg 25 mg, Oral, DAILY, First dose on Tue09/03/21 at 0945, Until Discontinued, May cut in half but do not crush or chew 1018 ($ Given - Provider: Elena Burnett, DEEPIKA) perflutren lipid microsphere (Definity) injection 0.5 mL 0.5 mL, Intravenous, INTRA-PROCEDURE MULTIPLE, 6 doses, Starting on Tue09/02/21 at 1252, Until Tue09/03/21 at 1742, For Echo Procedure - Per Protocol Give slowly Shake well before using. 1306 ($ Given - Provider: DI Aguirre) potassium chloride (Klor-Con) packet 40 mEq (COMPLETED) 40 mEq, Oral, ONCE, 1 dose, On Tue09/02/21 at 0445, DISSOLVE IN 120 ML OF COLD WATER OR JUICE AND DRINK SLOWLY 0443 ($ Given - Provider: Tiana King RN) PRN Medication Order 09/01/2021 09/02/2021 09/03/2021 0.9% NaCl injection 1-10 mL(Linked Group 1) 1-10 mL, Intracatheter, PRN, Other, peripheral line flush, Starting on Tue09/01/21 at 2224, Until Tue09/03/21 at 1742, Flush peripheral IV catheter with 1-10 mL of normal saline before and after medications and prn to clear blood from the line or to verify patency. dextrose IV 12.5 g(Linked Group 2) 12.5 g, Intravenous, PRN, Other, Bedside Glucose less than 70 mg/dL -If NOT able to eat and/or NPO and with IV Access, Starting on Tue09/02/21 at 0425, Until Tue09/03/21 at 1742, If NOT able to eat and/or NPO and with IV Access: For Bedside Glucose 54-69 mg/dL give 12.5 g Dextrose IV STAT For Bedside Glucose LESS than 54 mg/dl verify with a second Bedside Glucose (from a different site) and give 25 g Dextrose IV STAT Re-check and Re-treat blood glucose EVERY , 10-25 minutes until blood glucose GREATER than or equal to 80 mg/dl. NOTIFY PROVIDER OF HYPOGLYCEMIC EVENT. dextrose IV 25 g(Linked Group 2) 25 g, Intravenous, PRN, Other, Bedside Glucose less than 70 mg/dL -If NOT able to eat and/or NPO and with IV Access, Starting on Tue09/02/21 at 0425, Until Tue09/03/21 at 1742, If NOT able to eat and/or NPO and with IV Access: For Bedside Glucose 54-69 mg/dL give 12.5 g Dextrose IV STAT For Bedside Glucose LESS than 54 mg/dl verify with a second Bedside Glucose (from a different site) and give 25 g Dextrose IV STAT Re-check and Re-treat blood glucose EVERY , 10-25 minutes until blood glucose GREATER than or equal to 80 mg/dl. NOTIFY PROVIDER OF HYPOGLYCEMIC EVENT. glucagon (Glucagen) injection 1 mg 1 mg, Intramuscular, PRN, Bedside Glucose less than 70 mg/dL - If NOT able to eat and/or NPO and withOUT IV Access, Starting on Tue09/02/21 at 0425, Until Tue09/03/21 at 1742, If NOT able to eat and/or NPO and NO IV Access: For Bedside glucose 54-69 mg/dL Give 1 mg IM or SQ For Bedside Glucose LESS than 54 mg/dl verify with a second bedside glucose (from a different site) and Give 1 mg IM or SQ Re-check and Re-treat blood glucose EVERY 10-25 minutes until blood glucose GREATER than or equal to 80 mg/dl. NOTIFY PROVIDER OF HYPOGLYCEMIC EVENT. Reconstitute vial with 1 mL of sterile water for injection for a final concentration of 1 mg/mL; shake vial gently; use immediately and discard unused portion glucose (Diabetic Use) (Dex4 Glucose) oral liquid Oral, PRN, Other, Bedside Glucose less than 70 mg/dL -If able to eat and does not have swallowing difficulties, Starting on Tue09/02/21 at 0425, Until Tue09/03/21 at 1742, If able to eat and can swallow thin liquids: For Bedside Glucose 54 - 69 mg/dL Give 15 grams of oral carbohydrates - 1 glucose liquid (see MAR) If patient refuses glucose liquid, then offer: - 4 ounces of fruit juice OR - 4 ounces non-diet soda OR - 8 ounces of fat-free milk For Bedside Glucose LESS than 54 mg/dL verify with a second Bedside Glucose (from a different site) - If pt is symptomatic, do not delay treatment Consider confirming the glucose with a STAT laboratory test Give 30 grams of oral carbohydrates - 2 glucose liquid (see MAR) If patient refuses glucose liquid, then offer: - 8 ounces of fruit juice OR - 8 ounces non-diet soda OR - 16 ounces of fat-free milk Re-check and Re-treat blood glucose EVERY 10-25 minutes until blood glucose GREATER than or equal to 80 mg/dl. NOTIFY PROVIDER OF HYPOGLYCEMIC EVENT. glucose (Diabetic Use) oral gel Oral, PRN, Other, Bedside Glucose less than 70 mg/dL -If able to eat and does not have swallowing difficulties, Starting on Tue09/02/21 at 0425, Until Tue09/03/21 at 1742, If able to eat and is better able to swallow gel: For Bedside Glucose 54 - 69 mg/dL Give 15 grams of oral carbohydrates - 1 glucose gel (see MAR) If patient refuses glucose gel, then offer: - 4 ounces of fruit juice OR - 4 ounces non-diet soda OR - 8 ounces of fat-free milk For Bedside Glucose LESS than 54 mg/dL verify with a second Bedside Glucose (from a different site) - If pt is symptomatic, do not delay treatment Consider confirming the glucose with a STAT laboratory test Give 30 grams of oral carbohydrates - 2 glucose gels (see MAR) If patient refuses glucose gel, then offer: - 8 ounces of fruit juice OR - 8 ounces non-diet soda OR - 16 ounces of fat-free milk Re-check and Re-treat blood glucose EVERY 10-25 minutes until blood glucose GREATER than or equal to 80 mg/dl. NOTIFY PROVIDER OF HYPOGLYCEMIC EVENT. hydrALAZINE (Apresoline) injection 10 mg(Linked Group 3) 10 mg, Intravenous, EVERY 20 MIN PRN, Hypertension, For SBP > 140 and HR <70, Starting on Tue09/01/21 at 2227, Until Kristina 09/03/21 at 1742, Over 1-2 minutes until target BP is reached. Use if labetalol is ineffective, patient Heart Rate LESS than 60, or patient meets other exclusion criteria for labetalol. labetalol (Normodyne; Trandate) injection 10 mg(Linked Group 3) 10 mg, Intravenous, EVERY 15 MIN PRN, Hypertension, For SBP > 140 and HR > 70, Starting on Tue09/01/21 at 2227, Until Kristina 09/03/21 at 1742, IVP over 1-2 minutes until target blood pressure goal is reached. If BP out of goal range after 2 doses may use alternative agent or contact physician. Cumulative dose not to exceed 300 mg/24 hrs. Exclusion criteria for Labetolol: Asthma, Cardiac Failure, Heart Block, Heart rate less than 60, or Severe Cardiac Abnormalites. Linked Groups Order Group 1: SALINE LOCK, INSERT AND MAINTAIN (CANCELED) Routine, CONTINUOUS, Starting on Tue09/01/21 at 2230, Until Specified, New collection And 0.9% NaCl injection 3 mLJump to med 3 mL, Intracatheter, EVERY 8 HOURS, First dose on Tue09/01/21 at 2300, Until Discontinued, Flush peripheral IV catheter with 3 mL of normal saline every 8 hours. And 0.9% NaCl injection 1-10 mLJump to med 1-10 mL, Intracatheter, PRN, Other, peripheral line flush, Starting on Tue09/01/21 at 2224, Until Tue09/03/21 at 1742, Flush peripheral IV catheter with 1-10 mL of normal saline before and after medications and prn to clear blood from the line or to verify patency. Group 2: dextrose IV 12.5 gJump to med 12.5 g, Intravenous, PRN, Other, Bedside Glucose less than 70 mg/dL -If NOT able to eat and/or NPO and with IV Access, Starting on Tue09/02/21 at 0425, Until Tue09/03/21 at 1742, If NOT able to eat and/or NPO and with IV Access: For Bedside Glucose 54-69 mg/dL give 12.5 g Dextrose IV STAT For Bedside Glucose LESS than 54 mg/dl verify with a second Bedside Glucose (from a different site) and give 25 g Dextrose IV STAT Re-check and Re-treat blood glucose EVERY , 10-25 minutes until blood glucose GREATER than or equal to 80 mg/dl. NOTIFY PROVIDER OF HYPOGLYCEMIC EVENT. Or dextrose IV 25 gJump to med 25 g, Intravenous, PRN, Other, Bedside Glucose less than 70 mg/dL -If NOT able to eat and/or NPO and with IV Access, Starting on Tue09/02/21 at 0425, Until Tue09/03/21 at 1742, If NOT able to eat and/or NPO and with IV Access: For Bedside Glucose 54- 69 mg/dL give 12.5 g Dextrose IV STAT For Bedside Glucose LESS than 54 mg/dl verify with a second Bedside Glucose (from a different site) and give 25 g Dextrose IV STAT Re-check and Re-treat blood glucose EVERY , 10-25 minutes until blood glucose GREATER than or equal to 80 mg/dl. NOTIFY PROVIDER OF HYPOGLYCEMIC EVENT. Group 3: labetalol (Normodyne; Trandate) injection 10 mgJump to med 10 mg, Intravenous, EVERY 15 MIN PRN, Hypertension, For SBP > 140 and HR > 70, Starting on Tue09/01/21 at 2227, Until Tue09/03/21 at 1742, IVP over 1-2 minutes until target blood pressure goal is reached. If BP out of goal range after 2 doses may use alternative agent or contact physician. Cumulative dose not to exceed 300 mg/24 hrs. Exclusion criteria for Labetolol: Asthma, Cardiac Failure, Heart Block, Heart rate less than 60, or Severe Cardiac Abnormalites. Or hydrALAZINE (Apresoline) injection 10 mgJump to med 10 mg, Intravenous, EVERY 20 MIN PRN, Hypertension, For SBP > 140 and HR <70, Starting on Tue09/01/21 at 2227, Until Kristina 09/03/21 at 1742, Over 1-2 minutes until target BP is reached. Use if labetalol is ineffective, patient Heart Rate LESS than 60, or patient meets other exclusion criteria for labetalol. documented in this encounter Care Teams Watcher [place] Relationship Specialty Start Date End Date Grecia Bravo APRN-INSTRUCTIONAL DESIGNER [id number] [place] [address] [place] [id number] PCP - Attributed-[employer] [place] 06/20/21 09/01/21 documented as of this encounter
--- OUTSIDE RECORDS SUMMARY | 2024-06-21 19:49 | XMS_ITS | Clinical Summary ---
Author Organization [facility] Address [address] [place] [id number] Care Team Providers Care Risk And Insurance Manager Name Role Phone Unavailable Primary Care Provider Unavailabl e Social History Tobacco Use Types Packs/Day Years Used Date Smoking Tobacco: Never Assessed Sex and Gender Information Value Date Recorded Sex Assigned at Not on file Legal Sex Male 12:59 PM EST Gender Identity Not on file Sexual Orientation Not on file Plan of Treatment Not on file
--- OUTSIDE RECORDS SUMMARY | 2024-06-21 19:49 | XMS_ITS | Clinical Summary ---
Author Organization [facility] [employer] Address [address] [place] [address] Care Team Providers Care Paper Box Maker Name Role Phone Unavailable Primary Care Provider Unavailabl e Source Comments [facility] [employer],non-owned Affiliates and Associated Physician Practices is amultiple site organization consisting of ambulatory clinics and hospital sitesin [place], [place], [place] and [place]. This disclosure is being madepursuant to the Care Everywhere program and may not contain all information available regarding this patient. Last updated 18.[facility] [employer] Allergies Active Allergy Reactions Criticality Noted Date [...] Mass Index 24.88 09/01/2021 9:00 PM CDT Plan of Treatment Health Maintenance Due Date Last Done Comments COLOGUARD (AGES 45-75) - COL ON CA SCREENING 1961 COLON MONITORING 1961 COLONOSCOPY - COLON CA SCREENING 1961 CT COLONOGRAPHY - COLON CA SCREENING 1961 Colorectal Cancer Screening 1961 FIT - COLON CA SCREENING 1961 FLEX SIG - COLON CA SCREENING 1961 HIV SCREENING 1976 HEPATITIS C SCREENING 07/05/1979 ZOSTER VACCINE (1 of 2) 2011 PNEUMOCOCCAL VACCINE (2 of 2 - PCV) 06/19/2016 06/19/2015 DTAP/TDAP/TD VACCINES (2 - T d or Tdap) 06/20/2020 06/20/2010 Respiratory Syncytial Virus (RSV) Vaccine Pt: or over 60 yrs (1 - Risk 60-74 years 1-dose series) 2021 DIABETES RETINOPATHY SCREENING 09/02/2021 DIABETES-FOOT EXAM WITH MONOFILAMENT 09/02/2021 DIABETES-HGB A1C 03/06/2022 09/03/2021 DIABETES-SERUM CREATININE 09/03/20222021, 09/02/2021, 09/01/2021 DEPRESSION SCREENING 06/20/2023 COVID-19 VACCINE (1 - 2023-2 5 season) 2024 INFLUENZA VACCINE (#1) 2024 HEPATITIS B VACCINE Aged Out No longe r eligible based on patient's age to complete this topic HIB VACCINE Aged Out No longer eligi ble based on patient's age to complete this topic HPV VACCINE Aged Out No longer eligi ble based on patient's age to complete this topic MENINGOCOCCAL VACCINE Aged Out No jean marie holly eligible based on patient's age to complete this topic Procedures Procedure Name Priority Date/Time Associated Diagnosis Comments BASIC METABOLIC PANEL (CALCIUM TOTAL) Routine 09/03/2021 2:48 AM CDT Cerebral brain hemorrhage (HCC) HEMOGLOBIN A1C Routine 09/03/2021 2:48 AM CDT Cerebral brain hemorrhage (HCC) from Last 3 Months or Most Recently Relevant to Health Maintenance Results * (ABNORMAL) HEMOGLOBIN A1C (09/03/2021 2:48 AM CDT) Hemoglobin A1c 11.5(H) <=5.6 % 09/03/2021 10:28 AM CDT [facility] Estimated Average Glucose 283 mg/dL 09/03/2021 10:28 AM [facility] Comment: HbA1c Interpretation: Normal : < 5.7% Pre-diabetes: 5.7-6.4% Diabetes: Equal to or greater than 6.5% Test results diagnostic of diabetes should be repeated for confirmation. Treatment target values recommended by ADA and other clinical organizations should be used to evaluate metabolic control in patients. Reference: [place] [employer], Standards of Care in Diabetes [...] Palomino MD LAB - CHEMISTRY ORD ERABLES [facility] [address] [place] [address], [facility] [phone] * (ABNORMAL) BASIC METABOLIC PANEL (CALCIUM TOTAL) (09/03/2021 2:48 AM CDT) BUN 7 7 - 26 mg/dL 09/03/2021 3:40 AM [facility] Creatinine 0.68(L) 0.71 - 1.16 mg/dL 09/03/2021 3:40 AM [facility] Sodium 138 136 - 145 mmol/L 09/03/2021 3:40 AM [facility] Potassium 3.6 3.5 - 4.5 mmol/L 09/03/2021 3:40 AM [facility] Chloride 107 98 - 107 mmol/L 09/03/2021 3:40 AM [facility] CO2 20(L) 22 - 29 mmol/L 09/03/2021 3:40 AM [facility] Glucose 161(H) 70 - 115 mg/dL 09/03/2021 3:40 AM CDT [facility] Calcium 8.5 8.4 - 10.2 mg/dL 09/03/2021 3:40 AM T [facility] Anion Gap 15 8 - 18 09/03/2021 3:40 AM T [facility] BUN/Creatinine Ratio 10 7 - 23 09/03/2021 3:40 AM T [facility] Osmolality Calculated 287 270 - 300 mOsm/kg 09/03/2021 3:40 AM T [facility] eGFR by CKD-EPI >90 >=90 mL/min/1.7 3 m2 09/03/2021 3:40 AM T [facility] Blood BLOOD SPECIMEN / Unknown Lab Venipuncture / Unknown 09/03/2021 2:48 AM CDT 09/03/2021 3:04 AM CDT Jeremy Palomino MD LAB - CHEMISTRY ORD ERABLES [facility] [address] [place] [address], [facility] [phone] from Last 3 Months or Most Recently Relevant to Health Maintenance Advance Directives * Full Code (Latest Code Status on File) Date Activated Date Inactivated Comments 09/01/2021 10:29 PM 09/03/2021 5:42 PM
--- OUTSIDE RECORDS SUMMARY | 2024-06-21 19:50 | XMS_ITS | Encounter Summary ---
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 Name Role Phone Unknown, Notinfile Primary Care Provider Unavail able Salbador Granados MD Unavailable [phone] Rubin Clayton MD Unavailable Miscellaneous, Not In File Unavailable Unava ilable Humphrey Manriquez MD Unavailable [phone] Encounter Details Date Type Department Care Team (Latest Contact Info) Description 08/19/2021 4:20 PM MARKETING LIAISON - 08/21/2021 3:20 PM MARKETING LIAISON Hospital Encounter [facility] [address] [place] [address] Ramin Christine MD [address] [place] [address] Annmarie Pittman MD [address] [place] [address] Cerebrovascular accident (CVA), unspecified mechanism (HCC) (Primary Dx); Diagnosis unknown Discharge Disposition: Discharge to home or self care Social History Tobacco Use Types Packs/Day Years Used Date Smoking Tobacco: Former Cigarettes 1 40 Smokeless Tobacco: Never Comments:Stop smoking 11/202 1 after [place] Alcohol Use Standard Drinks/Week Comments No 0 (1 standard drink = 0.6 oz pur e alcohol) AUDIT-C Answer Date Recorded Q1: How often do you have a drink containing alc ohol? Never 07/28/2021 Average Number of Drinks Not on file 022 Frequency of Binge Drinking Not on file 01/2022 PHQ-2 Answer Date Recorded PHQ-2 Total Score (If total score is 3 or more points, staff should administer the PHQ-9) 1 08/19/2021 Sex and Gender Information Value Date Recorded Sex Assigned at Not on file Legal Sex Male 11:30 PM MARKETING LIAISON Gender Identity Not on file Sexual Orientation Not on file documented as of this encounter Last Filed Vital Signs Vital Sign Reading Time Taken Comments Blood Pressure 124/80 08/21/2021 12:00 PM MARKETING LIAISON Pulse 92 08/21/2021 12:00 PM MARKETING LIAISON Temperature 36.6 ??C (97.8 ??F) 08/21/2021 6:00 AM CS T Respiratory Rate 23 08/21/2021 12:0 0 PM MARKETING LIAISON Oxygen Saturation 100% 08/21/2021 12: 00 PM MARKETING LIAISON Inhaled Oxygen Concentration - - Weight 83.9 kg (184 lb 15.5 oz) 08/19/2021 4:30 PM MARKETING LIAISON Height 180.3 cm (5' 11 ) 08/19/2021 4:30 PM MARKETING LIAISON Body Mass Index 25.8 08/19/2021 4:30 PM MARKETING LIAISON documented in this encounter Discharge Diagnoses Diagnosis Nontraumatic intracerebral hemorrhage, unspecified (HCC) - NONTRAUMATIC INTRACEREBRAL HEMORRHAGE, UNSPECIFIED Hypo-osmolality and hyponatremia - HYPO-OSMOLALITY AND HYPONATREMIA Delirium due to known physiological condition - DELIRIUM DUE TO KNOWN PHYSIOLOGICAL CONDITION Chronic systolic (congestive) heart failure (HCC) - CHRONIC SYSTOLIC (CONGESTIVE) HEART FAILURE Homonymous bilateral field defects, left side - HOMONYMOUS BILATERAL FIELD DEFECTS, LEFT SIDE Elevated white blood cell count, unspecified - ELEVATED WHITE BLOOD CELL COUNT, UNSPECIFIED Type 2 diabetes mellitus without complications (CMS/HCC) (HCC) - TYPE 2 DIABETES MELLITUS WITHOUT COMPLICATIONS Hypertensive heart disease with heart failure (CMS/HCC) (HCC) - HYPERTENSIVE HEART DISEASE WITH HEART FAILURE Unspecified hypertensive heart disease with heart failure Other seizures (HCC) - OTHER SEIZURES Chronic obstructive pulmonary disease, unspecified (HCC) - CHRONIC OBSTRUCTIVE PULMONARY DISEASE, UNSPECIFIED Atrial septal defect - ATRIAL SEPTAL DEFECT Ostium secundum type atrial septal defect Nicotine dependence, cigarettes, in remission - NICOTINE DEPENDENCE, CIGARETTES, IN REMISSION Atherosclerotic heart disease of [place] coronary artery without angina pectoris - ATHEROSCLEROTIC HEART DISEASE OF [place] CORONARY ARTERY WITHOUT ANGINA PECTORIS Pure hypercholesterolemia, unspecified - PURE HYPERCHOLESTEROLEMIA, UNSPECIFIED Hypomagnesemia - HYPOMAGNESEMIA Disorders of magnesium metabolism Vitamin D deficiency, unspecified - VITAMIN D DEFICIENCY, UNSPECIFIED Hypokalemia - HYPOKALEMIA Hypopotassemia Constipation, unspecified - CONSTIPATION, UNSPECIFIED Gastro-esophageal reflux disease without esophagitis - GASTRO-ESOPHAGEAL REFLUX DISEASE WITHOUT ESOPHAGITIS Restlessness and agitation - RESTLESSNESS AND AGITATION Other signs and symptoms involving emotional state Visual hallucinations - VISUAL HALLUCINATIONS Psychophysical visual disturbances Nihss score 2 - NIHSS SCORE 2 Other abnormalities of gait and mobility - OTHER ABNORMALITIES OF GAIT AND MOBILITY Dysarthria and anarthria - DYSARTHRIA AND ANARTHRIA Dysphagia, unspecified - DYSPHAGIA, UNSPECIFIED 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/antiplatelets - SNF (CURRENT) USE OF ANTITHROMBOTICS/ANTIPLATELETS long-term (current) use of aspirin - 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 (CURRENT) USE OF ASPIRIN Personal history of COVID-19 - PERSONAL HISTORY OF COVID-19 Presence of coronary angioplasty implant and graft - PRESENCE OF CORONARY ANGIOPLASTY IMPLANT AND GRAFT Presence of aortocoronary bypass graft - PRESENCE OF AORTOCORONARY BYPASS GRAFT Personal history of pneumonia (recurrent) - PERSONAL HISTORY OF PNEUMONIA (RECURRENT) Old myocardial infarction - OLD MYOCARDIAL INFARCTION 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) use of oral hypoglycemic drugs - SNF (CURRENT) USE OF ORAL HYPOGLYCEMIC DRUGS long-term (current) use of insulin (HCC) - SNF (CURRENT) USE OF INSULIN Other alf (current) drug therapy - OTHER 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 (CURRENT) DRUG THERAPY Personal history of transient ischemic attack (TIA), and cerebral infarction without residual deficits - PERSONAL HISTORY OF TRANSIENT ISCHEMIC ATTACK (TIA), AND CEREBRAL INFARCTION WITHOUT RESIDUAL DEFICI documented in this encounter Discharge Summaries * Александр Roger MD PhD - 08/21/2021 1:20 PM CST Inpatient Discharge Summary BRIEF OVERVIEW Admitting Provider: Annmarie Pittman MD Discharge Provider: Annmarie Pittman MD Primary Care Physician at Discharge: Unknown, Notinfile None Admission Date: 08/19/2021 Discharge Date: 08/21/2021 Admission Location: [facility] Problems/Diagnoses: Principal Problem: Diagnosis unknown Resolved Problems: No resolved hospital problems. DETAILS OF HOSPITAL STAY HPI / Hospital Course: Deepak Alvarado is a 61 year old right-handed male with PMH COPD, HTN, HLD, DM, smoker (recently quit),CAD s/p [place] & CABG. He was admitted to [facility] 05/04/21-06/03/21 with STEMI s/p 4V CABG and additionally hospital course complicated by COVID pneumonia. He was admitted to the hospital again 07/28/2021- 07/30/2021 with c/o left visual field loss and headache and found to have multifocal acute ischemic stroke. He presented to [facility] ED (08/19/2021) with complaints of hallucinations described as seeing people whoaren't there , he denies history of psychiatric illness. His states that he had been hallucinating for ~4 days and she said he had been talking to the hallucinations, punched a door and his behavior was escalating. Head CT demonstrated right occipital parietal infarction with new intraparenchym al hemorrhage. Significant lab values: INR 1.0, PTT 33, ETOH < 10, Na 132, glu 311. Vitals BP 123/94, HR 105, RR 18, sats 97% on RA. He was transfused one unit platelets and transferred via ambulance to [facility] NNICU for further workup and management of hemorrhagic conversion of ischemic stroke. [facility] Course On arrival to the ICU BP 132/101, HR 89, sats 96% on RA. He denied recent falls, weakness, numbness, tingling, pain, incontinence. On admission exam he was mildly dysarthric with a left visual field cut, moving all extremities spontaneously and equally, NIHSS 2 (1 escamilla, 1 dysarthria). Repeat HCT showed evolving intraparenchymal hemorrhage with right posterior cerebral artery territory infarct. Seen by NSGY, no plan for surgical intervention. Per NSGY CTA Head obtained which showed no evidenceof aneurysm or vascular malformation, same evolving SHIPYARD PAINTER territory IPH. The patient was observed in the NNICU and was then transferred to the [facility] Neuro stepdown. The patient was then transferred to stroke SDU. 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 The patient had routine EEG in the NNICU that did not demonstrate epileptiform abnormalities (though no hallucinations were captured), and patient was started on empiric Keppra 1g BID withplans for followup. A loop was placed on discharge as a loop had not previously been placed (the prior stroke discharge plan was to get a Holter from the patient's cardiology team). 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 The likely etiology of the hemorrhagic conversion was spontaneous hemorrhagic conversion, as CTA waswithout vascular malformation. He was endorsing visual hallucinations (formed, people) involving the L hemifield, and on conversation with the floor neurology team these were felt to be either release hallucinations (Aubrey-Bonnet syndrome) or occipital seizures. The patient was started on Keppra for seizure management and single antiplatelet therapy was re-instituted (given the fact that PH1 does not carry significant risk of neurologic deterioration) with plans to discuss DAPT in the outpatient setting with his Cardiothoracic surgeon. Etiology: The etiology of hemorrhagic conversion was likely spontaneous given absence of vascular malformation. The etiology of hallucinations was either release hallucinations in the setting of evolving infarct (the hemorrhagic conversion likely produced edema and mass effect with occipital dysfunction), or these may be seizures reflecting cortical irritability after stroke. Neurologic exam on admission: Mental Status Eyes open spont, regards, follows all commands, speech fluent, oriented x 3, naming 3/3, repetitionintact Cranial Nerves PERRL 3mm brisk, EOMI, left visual field cut, Face symmetric, mild dysarthria Motor 5/5 BUE and BLE, no drift Pertinent Work-up: CT Head without contrast: - OSH CT WO Contrast over-read: Interval development of hemorrhage within the previously noted right posterior cerebral artery territory infarct noted on MRI dated 07/29/2021. - CT Head WO Contrast 08/19/20: Evolving intraparenchymal hemorrhage within the right posterior cerebral artery territory infarct with unchanged localized mass effect. There is no midline shift. CTA Head/Neck: CTA Head/Neck W WO Contrast 08/19/20: 1. Evolving intraparenchymal hemorrhage within the right posterior cerebral artery territory infarct. 2. No evidence of aneurysm or vascular malformation. Oligemia ofthe P2 and P3 segments on the right secondary to hemorrhagic stroke best seen on image 20 series 11. Workup for stroke risk factor modification: ??? LDL: Deferred during current admission (evaluated in July 2021 stroke admission) ??? A1c: Deferred during current admission (evaluated in July 2021 stroke admission) ??? Telemetry throughout admission: NSR ??? 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 30-day event monitor (loop): 30-day event monitor was placed (to be Management: The patient was continued on atorvastatin 40 mg PO qHS (SPARCL trial). The current [place] Stroke Association guidelines recommend long-term treatment with a high-intensity statin even in patient's with LDL level <100, if tolerated. (The SPARCL trial, German et al. 2010, showed that statin treatment should not be titrated to LDL level.) The patient was on ASA 81 and Plavix 75 for a cardiac indication (recent 4V CABG). The patient's antiplatelet therapy was held on admission, and ASA 81 was restarted on admission to Neurology. The patient will be planned to discuss restarting Plavix 75 with his Cardiac Surgeon (to be seen 09/15/21),as he reports that this was started at the recommendation of his Cardiac Surgeon after his CABG. Given the possibility that the patient's hallucinations may have been seizures, the patient was started empirical on Keppra 1g BID. This will be managed in the outpatient setting by Neurology. The response of hallucinations to Keppra will provide further guidance regarding whether these are seizures or Aubrey-Bonnet syndrome. After the end-date (specified below), the patient should NOT be on dual- antiplatelet therapy. Accordingly her stroke regimen is summarized as the following: Medication Dosage Duration Clopidogrel (Plavix) 75 mg daily, held Pending discussion with CT surgery Aspirin 81 mg daily Indefinitely Atorvastatin (Lipitor) 40 mg daily Indefinitely Leviteracetam (Keppra) 1000 mg daily Indefinitely for the time being *Nikolas COLLADO et al. Comparison of warfarin and aspirin for symptomatic intracranial arterial stenosis. N. Engl. J. Med. 2005. 352:1305-16. Disposition: Per primary team evaluation, the patient was appropriate for discharge home Therapy referrals: None required Follow-up: The patient will follow-up in the outpatient [facility]. The contact information of the clinic is listed below: [address] [address] Other medical problems addressed during this hospitalization: # Visual hallucinations: As discussed above, the patient was reporting stereotyped hallucinations with fully formed people, generally lasting ~5 minutes. These had features of release hallucinations (fully-formed) and occipital seizures with intact awareness (stereotyped, recurrent, lasting brief periods). Routine EEG was unremarkable though a hallucination was not captured. The patient is planned for empiric Keppra and subsequent followup to determine response to therapy (patient will be seen in Stroke Neurology at [facility]) - Routine EE) right hemispheric slowing, maximal over the right temporoparietal region and 2) moderate generalized slowing - AEDs: Keppra 1g BID started in hospital, will be continued on discharge. Further determination ofduration of treatment will be based on response as assessed at Neuro stroke followup # Hx of HTN: The patient was managed with prn labetalol/hydral, and was planned for restarting medson discharge #CAD: The patient was s/p stents (2006 & 2009) s/p STEMI & 4V CABG 04/2021. The patient's DAPT was held on admission given hemorrhagic conversion, and ASA was restarted for stroke (given PH1). Plavix was held pending further conversation with patient's outpatient CT surgeon, as he reports that this was started at the recommendation of his Cardiac Surgeon after his CABG. We discussed the di scontinuation of Plavix with the patient's Cardiac Surgery team, and they are aware of the fact that he will be off, and do not feel that it is critical to start at this time. The patient can follow up in his CT surgery office - if the medication needs to be started urgently, it can be started at that time if the patient's neurologic exam is stable. Otherwise, recommend further discussion betweenthe patient's outpatient CT surgeon and new outpatient neurologist. #HFrEF: The patient had a repeat TTE which demonstrated LVEF 45% with apical aneurysm (no thrombus) # T2DM: The patient's home jardiance and lantus were held. The patient's BGs were managed with NPH 20 TID and SSI. A1c on admission 10.9 # Leukocytosis (resolving): Infectious workup negative, likely reactive # Vitamin D deficiency: The patient was started on cholecalciferol 400 units daily. This will be discontinued on discharge with plans for PCP to follow up on this # Hx of COPD: The patient was ordered for prn albuterol Active Issues Requiring Follow-up: - R SHIPYARD PAINTER stroke with hemorrhagic conversion (PH1): The patient will have Neurology stroke followup, which will be scheduled after discharge - S/p CABG with Plavix held: The patient will be seeing Dr. Granados and will discuss how urgently Plavix needs to be restarted. Plavix should be held until that time. If the patient's neurologic examis stable at that time, the patient's Plavix can be restarted. If Dr. Granados would prefer, he can also reach out to the patient's new Neurologist to discuss further - Vitamin D deficiency: The patient requires PCP followup to discuss further - T2DM: The patient's A1c was suggestive of inadequate control on admission. The patient requires outpatient followup Test Results Pending at Discharge: Operative Procedures Performed: Other Procedures: Pertinent Test Results: See hospital course above Discharge Details Physical Exam at Discharge: Discharge Condition: stable Pulse: 92 Resp: 23 BP: 124/80 Temp: 36.6 ??C (97.8 ??F) Weight: 83.9 kg (184 lb 15.5 oz) Pertinent Exam Findings at Discharge: NEUROLOGIC EXAM: Mental Status:The patient is alert and oriented to person, place, time and reason for visit. Attention is moderately impaired. Language: The patient has fluent speech and follows 2 step commands. Naming intact. Repetition intact. Cranial Nerves II-XII: Left homonymous hemianopia. Intermittent visual hallucination of unfamiliar elderly people. PERRL. Extraocular movements are full and without nystagmus. V1- 3 is intact to light touch bilaterally. Face is symmetric, hearing is intact bilaterally and palate is up-going bilaterally. Head turn and shoulder shrug symmetric and strong. There is no dysarthria. Motor: Strength is 5/5 throughout. Muscle tone and bulk are normal. There is no pronator drift. Finger tapping is normal bilaterally. Reflexes: Reflexes are 2+ at the biceps, brachioradialis and 1+ at patellae. Absent Wei. Bilateral mute toes. No clonus. Sensation: Light touch is normal in all four extremities. Coordination: Finger to nose is normal bilaterally. Ambulation:Gait is wide-based and somewhat unsteady, but able to walk w/o assistance. ?? Discharge Disposition: Code Status at Discharge: Full Code Discharge Instructions: You were seen at [facility] because you started seeing people that were not there in the left side of your world. The people you were seeing were likely hallucinations, either because of damage to your brain from your stroke, or because of seizures arising from your injured brain. ?? While you were admitted, we got imaging of your head that showed that there was some bleeding into your prior stroke. This is an expected finding after a stroke. However, this led us to hold your Plavix until you can be seen again by your Cardiac surgeon. ?? Please be aware of the following changes to your medications Leviteracetam (Keppra): Please take 1000 mg (1 tablet) two times per day. Possible side effects include some worsening of mood. Please do not stop taking this medicine without discussing it with the stroke Neurology team. We are giving you this medicine because the hallucinations you have been having may be seizures, as we discussed above. Plavix: Please stop taking this medicine. Please discuss whether this needs to be restarted with your Cardiothoracic surgeon - they may recommend that the medicine be restarted at your visit, or theymay recommend waiting further until you can be seen in the Stroke Neurology clinic ?? Please be aware of the following appointments Neurology ([phone]): [facility] in the [facility]. We have asked the the Stroke Clinic to call you to arrange a follow-up appointment. IF YOU DO NOT HEAR FROM THE CLINIC WITHIN THE NEXT 7 DAYS, please call them at [phone] to make an appointment. You may also call them with any questions that arise in the meantime. Cardiothoracic Surgery: You will be seeing Dr. Granados's team on 09/15/2021 at 11:45 AM. Please discuss your Plavix with Dr. Granados - it would be safer to hold this medication at this time given you have bled into your stroke. If Dr. Granados feels that this medicine needs to be restarted as soon aspossible, it can be restarted if you are neurologically stable ?? You are likely to experience ongoing vision loss in the left side of your visual world, and may have more hallucinations. ?? --- Call Your Doctor If: CALL 911 IF YOU HAVE NEW SIGNS OF A STROKE, SUCH : * Your arm, leg or face suddenly becomes numb; especially on one side of your body. * You suddenly become confused or have a hard time talking. * You began having double vision or are not able to see in one or both eyes. * You have a hard time walking, become dizzy or feel like you may fall. * Your head begins to hurt very badly. ?? Activity: Follow the instructions given to you by Physical Therapy and Occupational Therapy. ?? Follow Up: We have asked the the Stroke Clinic to call you to arrange a follow-up appointment. IF YOU DO NOT HEAR FROM THE CLINIC WITHIN THE NEXT 7 DAYS, please call them at [phone] to make an appointment.You may also call them with any questions that arise in the meantime. ?? Additional Information: LIFESTYLE CHANGES TO REDUCE STROKE / TIA RISK: * If you smoke, STOP - smoking doubles your risk of stroke. Discuss aids to quit smoking with your primary care doctor. * If you drink alcohol, no more than one drink per day - more than this increases your risk of stroke. (One drink means 1.5 ounces of hard liquor, 4 ounces of wine or 12 ounces of beer.) * High blood pressure is a leading cause of stroke. If you have it, work with your doctor to control it. * Include exercise in your daily routine. Check with your primary doctor regarding exercise restrictions. * If you are overweight, discuss weight loss with you primary doctor. This helps control high bloodpressure, diabetes, and high cholesterol. Discharge Medications: Current Medications TAKE these medications albuterol HFA 90 mcg/actuation inhaler Inhale 2 puffs every 6 (six) hours as needed for wheezing or shortness of breath Commonly known as: PROVENTIL HFA,VENTOLIN HFA,PROAIR HFA aspirin 81 mg enteric coated tablet Take 1 tablet (81 mg total) by mouth daily atorvastatin 40 mg tablet Take 1 tablet (40 mg total) by mouth daily Commonly known as: LIPITOR carvediloL 3.125 mg tablet Take 1 tablet (3.125 mg total) by mouth 2 (two) times a day with meals Commonly known as: COREG clopidogreL 75 mg tablet Take 1 tablet (75 mg total) by mouth daily Commonly known as: PLAVIX empagliflozin 10 mg tablet Take 10 mg by mouth daily For: type 2 diabetes mellitus Commonly known as: JARDIANCE insulin glargine 100 unit/mL vial for injection Inject 60 Units under the skin nightly Commonly known as: LANTUS, SEMGLEE pantoprazole DR 40 mg EC tablet Take 40 mg by mouth daily Commonly known as: PROTONIX Outpatient Follow-Up: Future Appointments Date Time Provider Department Center 09/15/2021 11:45 AM Salbador Granados MD [facility] [address] [place] Cosigned by Annmarie Pittman MD at 08/22/2021 9:39 AM MARKETING LIAISON ETING LIAISON ETING LIAISON Associated attestation - Annmarie Pittman MD - 08/22/2021 9:39 AM MARKETING LIAISON I have seen and examined the patient on 08/21/2021. I agree with the findings and plan of care as documented in the resident's/fellow's note.. documented in this encounter Discharge Instructions * Discharge Instructions* Александр Roger MD PhD - 08/21/2021 1:20 PM MARKETING LIAISON You were seen at [facility] because you started seeing people that were not there in the left side of your world. The people you were seeing were likely hallucinations, either because of damage to your brain from your stroke, or because of seizures arising from your injured brain. While you were admitted, we got imaging of your head that showed that there was some bleeding into your prior stroke. This is an expected finding after a stroke. However, this led us to hold your Plavix until you can be seen again by your Cardiac surgeon. Please be aware of the following changes to your medications Leviteracetam (Keppra): Please take 1000 mg (1 tablet) two times per day. Possible side effects include some worsening of mood. Please do not stop taking this medicine without discussing it with the stroke Neurology team. We are giving you this medicine because the hallucinations you have been having may be seizures, as we discussed above. Plavix: Please stop taking this medicine. Please discuss whether this needs to be restarted with your Cardiothoracic surgeon - they may recommend that the medicine be restarted at your visit, or theymay recommend waiting further until you can be seen in the Stroke Neurology clinic Please be aware of the following appointments Neurology ([phone]): You will be seen in the [place] for [facility]. We have asked the the Stroke Clinic to call you to arrange a follow-up appointment. IF YOU DO NOT HEAR FROM THE CLINIC WITHIN THE NEXT 7 DAYS, please call them at [phone] to make an appointment. You may also call them with any questions that arise in the meantime. Cardiothoracic Surgery: You will be seeing Dr. Granados's team on 09/15/2021 at 11:45 AM. Please discuss your Plavix with Dr. Granados - it would be safer to hold this medication at this time given you have bled into your stroke. If Dr. Granados feels that this medicine needs to be restarted as soon aspossible, it can be restarted if you are neurologically stable You are likely to experience ongoing vision loss in the left side of your visual world, and may have more hallucinations. --- Call Your Doctor If: CALL [phone] IF YOU HAVE NEW SIGNS OF A STROKE, SUCH : * Your arm, leg or face suddenly becomes numb; especially on one side of your body. * You suddenly become confused or have a hard time talking. * You began having double vision or are not able to see in one or both eyes. * You have a hard time walking, become dizzy or feel like you may fall. * Your head begins to hurt very badly. Activity: Follow the instructions given to you by Physical Therapy and Occupational Therapy. Follow Up: We have asked the the Stroke Clinic to call you to arrange a follow-up appointment. IF YOU DO NOT HEAR FROM THE CLINIC WITHIN THE NEXT 7 DAYS, please call them at [phone] to make an appointment.You may also call them with any questions that arise in the meantime. Additional Information: LIFESTYLE CHANGES TO REDUCE STROKE / TIA RISK: * If you smoke, STOP - smoking doubles your risk of stroke. Discuss aids to quit smoking with your primary care doctor. * If you drink alcohol, no more than one drink per day - more than this increases your risk of stroke. (One drink means 1.5 ounces of hard liquor, 4 ounces of wine or 12 ounces of beer.) * High blood pressure is a leading cause of stroke. If you have it, work with your doctor to control it. * Include exercise in your daily routine. Check with your primary doctor regarding exercise restrictions. * If you are overweight, discuss weight loss with you primary doctor. This helps control high bloodpressure, diabetes, and high cholesterol. ETING LIAISON documented in this encounter Medications at Time of Discharge albuterol HFA (PROVENTIL HFA,VENTOLIN HFA,PROAIR HFA) 90 mcg/actuation inhaler Inhale 2 puffs every 6 (six) hours as needed for wheezing or shortness of breath aspirin 81 mg enteric coated tablet Take 1 tablet (81 mg total) by mouth daily 30 tablet 11 06/04/2021 atorvastatin (LIPITOR) 40 mg tablet Take 1 tablet (40 mg total) by mouth daily 30 tablet 07/31/2021 carvediloL (COREG) 3.125 mg tablet Take 1 tablet (3.125 mg total) by mouth 2 (two) times a day with meals 60 tablet 3 06/03/2021 empagliflozin (JARDIANCE) 10 mg tabletIndication s:type 2 diabetes mellitus Take 10 mg by mouth daily insulin glargine (LANTUS, SEMGLEE) 100 unit/mL vial for injection Inject 60 Units under the skin nightly levETIRAcetam (KEPPRA) 1,000 mg tablet Take 1 tablet (1,000 mg total) by mouth 2 (two) times a day 60 tablet 11 08/21/[address] (PROTONIX) 40 mg EC tablet Take 40 mg by mouth daily documented as of this encounter Ordered Prescriptions Prescription Sig Dispense Quantity Refills Last Filled Start Date End Date levETIRAcetam (KEPPRA) 1,000 mg tablet Take 1 tablet (1,000 mg total) by mouth 2 (two) times a day 60 tablet 11 08/21/2021 documented in this encounter Discharge Disposition Disposition Code Departure Means Destination Discharge to home or self care documented in this encounter Progress Notes * Александр Roger MD PhD - 08/21/2021 12:16 PM CST Images from the original note were not included. Neurology Stroke Daily Progress Note ## Primary note author is Eugenia Mora, addendum placed by Александр Roger to reflect updated plan afterstaffing with Dr. Pittmna SUBJECTIVE Chief complaint: Visual Hallucinations; Hemorrhagic conversion of R occipital stroke Brief History: Deepak Alvarado is a 61 year old right-handed male with PMH COPD, HTN, HLD, DM, smoker (recently quit),CAD s/p [place] & CABG. He was recently admitted to [facility] 05/04/21-06/03/21 with STEMI s/p 4V CABG and additionally hospital course complicated by COVID pneumonia. He was then admitted [facility] 07/28/2021- 07/30/2021 with chief complaint of acute left visual field loss and headache and found to have posterior right temporal and occipital stroke in the R SHIPYARD PAINTER distribution along with right parietal small acute stroke and chronic right thalamus & left pontine infarcts. MRA showed sever focal stenosis of the distal right MCA M1 segment and motion degredation. TTE w/ EF 40%, positive PFO, and significant apical akinesis in the LV, with recommendation to repeat limited echo with contrast to evaluate thrombus. Patient was offered acute rehab but declined and was discharged to home with HH on ASA and Plavix (for his cardiac stent), and atorvastatin 40mg. He then presented to OSH on 08/19/2021 for visual hallucination described as seeing people who aren't there , he denies history ofpsychiatric illness. His states that he had been hallucinating for ~4 days and she said he hadbeen talking to the hallucinations, punched a door and his behavior was escalating. He reports on the day prior to his hallucinations, he had an unspecified BARRON and took some ibuprofen. On the following day when he was at work, he started to see 8-9 people in his left visual field that sometime appears and then disappears. These people have faces (not just shadow figures) but they are not people that he knows. He only know that these people are not real because other people tells him so. 08/[address] demonstrated right occipital parietal infarction with new intraparenchymal hemorrhage. Significant lab values: INR 1.0, PTT 33, ETOH <??10, Na 132, glu 311. Vitals BP 123/94, HR 105, RR 18, sats 97% on RA. He was transfused one unit platelets and transferred via ambulance to [facility] NNICU for further lupillo. On arrival to the ICU BP 132/101, HR 89, sats 96% on RA. He denies recent falls, weakness, numbness, tingling, pain, incontinence. On exam he was mildly dysarthric with a left visual field cut, moving all extremities spontaneously and equally NNICU Course: Repeat HCT showed evolving intraparenchymal hemorrhage with right posterior cerebral artery territory infarct. Seen by NSGY, no plan for surgical intervention. Per NSGY CTA Head obtained which showedno evidence of aneurysm or vascular malformation, same evolving SHIPYARD PAINTER territory IPH. Required seroquel 25mg x1 overnight for restlessness and agitation. Coreg 3.125mg BID was started 3/3 AM to keep hisMAP < 110. Due to his PFO from last TTE, he underwent LED today, which was neg for DVT. rEEG (08/20): right hemispheric slowing, maximal over the right temporoparietal region and moderate generalized slowing. No epileptiform abnormalities Interval History: - Patient transferred to SDU - Feeling well, not currently having visual hallucinations, but he initially saw them when he firstmoved to SDU - Mentions he has had visual hallucinations at least 10 times in the last 3-4 days. Hallucinations are brief, lasting less than 5 min. No LOC or limb shaking. Mentions he did not have any hallucinations while he had the rEEG Medications Current Facility-Administered Medications Medication Dose Route Frequency Last Rate Last Admin ??? albuterol 2.5 mg/0.5 mL nebulizer solution 2.5 mg 2.5 mg nebulization Q4H PRN (RT) ??? atorvastatin (LIPITOR) tablet 40 mg 40 mg oral Nightly 40 mg at 08/19/211999 ??? carvediloL (COREG) tablet 3.125 mg 3.125 mg oral BID with meals (bkfst, dinner) 3.125 mg at 08/20/21 1247 ??? [START ON 08/21/2021] cholecalciferol (VITAMIN D-3) tablet/capsule 400 Units 400 Units oral Daily ??? dextrose (GLUTOSE) 40 % gel 15 g 15 g oral Q15 Min PRN Or ??? dextrose (D10W) 10% bolus 250 mL 250 mL intravenous Q15 Min PRN ??? docusate sodium (COLACE) capsule 100 mg 100 mg oral BID ??? glucagon injection 1 mg 1 mg intramuscular Q30 Min PRN ??? heparin 5,000 unit/mL injection 5,000 Units 5,000 Units subcutaneous Q8H LEAH ??? labetaloL (NORMODYNE,TRANDATE) injection 10 mg 10 mg intravenous Q15 Min PRN Or ??? hydrALAZINE (APRESOLINE) injection 10 mg 10 mg intravenous Q15 Min PRN ??? insulin glargine (LANTUS, SEMGLEE) 100 unit/mL injection 10 Units 10 Units subcutaneous Daily 10 Units at 08/20/21 1144 ??? insulin lispro (HumaLOG, ADMELOG) 100 unit/mL injection 2-10 Units 2-10 Units subcutaneous QID (AC & HS) 4 Units at 08/20/21 1144 ??? ondansetron (ZOFRAN) injection 4 mg 4 mg intravenous Q6H PRN ??? pantoprazole DR (PROTONIX) extended release tablet 40 mg 40 mg oral Daily 40 mg at 08/20/21 0812 ??? QUEtiapine (SEROquel) tablet 25 mg 25 mg oral Nightly PRN 25 mg at 08/19/21 2242 ??? ramelteon (ROZEREM) tablet 8 mg 8 mg oral Nightly ??? senna (SENOKOT) tablet 1 tablet 1 tablet oral BID ??? trimethobenzamide (TIGAN) injection 200 mg 200 mg intramuscular Q6H PRN Facility-Administered Medications Ordered in Other Encounters Medication Dose Route Frequency Last Rate Last Admin ??? perflutren protein-a (OPTISON) 3 mL in sodium chloride 0.9% 8 mL syringe 1-8 mL intravenous Once in imaging OBJECTIVE Vitals: Temp: [36.3 ??C (97.4 ??F)-36.7 ??C (98.1 ??F)] 36.6 ??C (97.9 ??F) Pulse: [89-106] 98 BP: (112-145)/(50-95) 145/95 Resp: [10-26] 24 SpO2: [92 %-100 %] 99 % Input and Output: Intake/Output Summary (Last 24 hours) at 08/20/2021 1732 Last data filed at 08/20/2021 1655 Gross per 24 hour Intake 2362 ml Output 2025 ml Net 337 ml Physical Exam: GENERAL EXAMINATION CONSTITUTIONAL: The patient is well appearing/well nourished, pleasant, comfortable. HEENT & NECK: The head is normocephalic and atraumatic. Conjunctiva are clear without injection; the oropharynx is clear. CARDIOVASCULAR: Extremities are warm and well perfused; there is no peripheral edema. RESPIRATORY: Normal WOB on RA NEUROLOGIC EXAM: Mental Status:The patient is alert and oriented to person, place, time and reason for visit. Attention is moderately impaired. Language: The patient has fluent speech and follows 2 step commands. Naming intact. Repetition intact. Cranial Nerves II-XII: Left homonymous hemianopia. Intermittent visual hallucination of unfamiliar elderly people. PERRL. Extraocular movements are full and without nystagmus. V1- 3 is intact to light touch bilaterally. Face is symmetric, hearing is intact bilaterally and palate is up-going bilaterally. Head turn and shoulder shrug symmetric and strong. There is no dysarthria. Motor: Strength is 5/5 throughout. Muscle tone and bulk are normal. There is no pronator drift. Finger tapping is normal bilaterally. Reflexes: Reflexes are 2+ at the biceps, brachioradialis and 1+ at patellae. Absent Wei. Bilateral mute toes. No clonus. Sensation: Light touch is normal in all four extremities. Coordination: Finger to nose is normal bilaterally. Ambulation:Gait is wide-based and somewhat unsteady, but able to walk w/o assistance. Lab/Radiology/Diagnostic Review: I have reviewed the following: Hematology Lab History Some values may be hidden. Unless noted otherwise, only the newest values recorded on each date aredisplayed. Labs - Hematology Latest Ref Range 06/02/21 06/03/21 07/28/21 08/19/21 WBC 3.8 - 9.9 K/cumm 15.4 (A) 13.2 (A) 15.4 (A) 11.7 (A) Total Hb, POC 13.0 - 17.5 g/dL 9.8 (A) 9.2 (A) 13.2 12.3 (A) Hct 38.9 - 50.3 % 30.5 (A) 29.2 (A) 39.3 36.1 (A) Plt 150 - 400 K/cumm 434 (A) 419 (A) 394 373 Neutrophil abs 1.7 - 6.5 K/cumm 11.3 (A) Lymphocytes, abs 0.8 - 3.3 K/cumm 2.6 Some values recorded on this date have been omitted. Some abnormal values recorded on this date have been omitted. (A) Abnormal value Chem/LFT Lab History Some values may be hidden. Unless noted otherwise, only the newest values recorded on each date aredisplayed. Labs-Chem/LFT Latest Ref Range 06/02/21 06/03/21 07/28/21 08/19/21 Sodium 135 - 145 mmol/L 135 135 132 (A) 137 Creatinine 0.80 - 1.30 mg/dL 0.52 (A) 0.42 (A) 0.70 (A) 0.70 (A) Bilirubin, total 0.1 - 1.2 mg/dL 0.3 0.5 AST 10 - 50 Units/L 26 17 ALT 7 - 55 Units/L 17 19 CrCl- Actual Body Weight (Cockcroft-Gault) 165.1 204.4 136.8 133.2 Some values recorded on this date have been omitted. Some abnormal values recorded on this date have been omitted. (A) Abnormal value ASSESSMENT AND PLAN Deepak Alvarado is a 61 year old right-handed male with PMH COPD, HTN, HLD, DM, smoker (recently quit),CAD s/p [place] & CABG (04/2021), admitted 08/19 for hemorrhagic conversion of his R occipital stroke a month ago. He had an episode of unspecified headache the day prior to his visual hallucinations, and since then has been having intermittent visual hallucination of unfamiliar elderly people in his L visual field. His CTH 08/19 redemonstrated right occipital parietal infarction with new intraparenchymal hemorrhage. His exam is notable for moderate inattention and left homonymous hemianopia, as well as intermittent visual hallucination in his left visual field. His visual hallucination is suspicious for seizures iso of bleed and 2/2 location. Could also consider Aubrey Bonnet Syndrome given his significant vision loss and the location of his stroke. His hemorrhagic conversion of the 07/2020 stroke can scooter grimm be explained by him being on DAPT for his CABG procedure. His initial etiology of stroke is yet to be determined but likely cardioembolic vs. Atheroembolic given his number of risk factors. # Hemorrhagic conversion of prior R SHIPYARD PAINTER territory infarct Work Up: -- MRI/MRA (07/29): posterior R temporal and occipital AIS in R SHIPYARD PAINTER distribution, small R parietal AIS, R thalamus/left pontine chronic infarcts, mild microvascular ischemic white matter changes, ??Small focal severe stenosis along the distal right MCA M1 segment. -- TTE (07/30): EF 40%, positive PFO, and significant apical akinesis in the LV, with recommendationto repeat limited echo with contrast to evaluate thrombus -- Carotid duplex (07/29): <49% stenosis bilateral ICA, vertebrals w/ bilateral antegrade flow. -- CTH (08/19): hemorrhage within the previously noted right posterior cerebral artery territory infarct -- CTA (08/19) with no significant stenosis, aneurysm or AVM. -- UDS (08/19): negative -- Bilateral LED (08/20): negative for acute DVT -- rEEG (08/20): right hemispheric slowing, maximal over the right temporoparietal region and moderate generalized slowing. No epileptiform abnormalities. Plan: -- s/p SMART c/s -- NC q4hrs -- MAP < 110 -- hold home ASA/plavix, discuss restart date-> restart aspirin now and do plavix at cards follow up -- continue atorvastatin -- TTE pending -- loop monitor -- neuro follow up ?? # New onset visual hallucinations in setting of occipital stroke # Hyperactive delirium -- Empiric Keppra 1g BID until follow up -- delirium precautions -- Start ramelteon 8mg nightly -- Continue seroquel 25mg PRN nightly ?? # Hx of HTN -- MAP < 110 -- PRN labetalol and PRN hydralazine -- Restart home coreg 3.125mg BID (08/19) ?? #CAD -- s/p stents (2006 & 2009) s/p STEMI & 4V CABG 04/2021 -- chart history of plavix nonresponder and switched to effient in 2009, however post CABG 04/2021 he was started on ASA/plavix -- holding DAPT in setting of hemorrhagic conversion ?? #HFrEF -- TTE (07/30) mild LVH, grade I diastolic dysfunction, EF 35-40%, significant apical akinesis in the LV mild AR, mild LAE, +PFO on saline contrast study -- obtain repeat TTE with contrast (r/o thrombus in setting of significant LV apical akinesis) -- restart home coreg as above ?? # T2DM -- Holding home jardiance -- A1c (07/29/2021) 10.5, repeat (08/19/21) 10.9 -- continue SSI (insulin resistant scale) AC/HS -- begin Lantus 10 units daily (home Lantus 60u daily) -- consider adding scheduled mealtime lispro ?? # Leukocytosis (resolving) -- Likely reactive -- admission UA and CXR negative for infectious process -- PanCx if temp > 38.5 -- PRN tylenol for fever # Vitamin D deficiency -- vit D level 15 (08/19) -- started cholecalciferol 400 units daily ?? # Hx of COPD # Prior tobacco use, quit 04/2021 -- O2 sats >88% -- IS, OOB -- PRN albuterol # GERD -- continue home protonix 40mg daily # HLD -- continue statin as above ?? VTE Prophylaxis Last Venous Doppler: LED (08/20) negative for DVT Prophylaxis: SCDs, Restart SQH 5000 Q8H 08/20 night Eugenia Mora MD PGY2 - Neurology Stroke Cosigned by Annmarie Pittman MD at 08/21/2021 3:12 PM MARKETING LIAISON ETING LIAISON ETING LIAISON ETING LIAISON ETING LIAISON ETING LIAISON ETING LIAISON Associated attestation - Annmarie Pittman MD - 08/21/2021 3:12 PM MARKETING LIAISON I have seen and examined the patient on 08/21/21. I agree with the findings and plan of care as documented in the resident's/fellow's note. Reviewed MRI brain from previous encounter with right SHIPYARD PAINTER territory stroke, CT head this admission with hemorrhagic transformation. On exam patient with left Homonymous hemianopsia. Ddx includes Aubrey-Bonnet syndrome vs. Occipital seizures (suspect more Aubrey Bonnet given well-developed faces in the left visual field). Will empirically try keppra and restart aspirin given stability of symptoms today. Will discharge with 30 day event monitor to evaluate for cardiac arrythmia given cardiac disease including apical aneurysm. * Katy Ruffin RN - 08/21/2021 11:30 AM CST CM Initial Assessment Interview Note Admission Source: from outside hospital Impression: Patient is a 61 y.o male admitted for stroke Plan Includes: Echo Primary Source of Transportation: Family Health Insurance Coverage: [employer] Prescription Coverage: yes Pharmacy: [facility] Primary Care Provider[facility] Prior to Admission: Primary Caregiver: Self Support System: Spouse/Significant Other Support system contact info (name, phone, availablity): Geno Durable Medical Equipment: Home Modification Assessment (railes in bathroom), Other (Comment) (quadcane) Living Arrangements: Spouse/significant other Type of Residence: Private residence Steps in home? : Yes, Outside of home Number of steps outside:: 3 steps Potential discharge needs include: Therapy recommended outpatient therapy Patient expects to be Discharged to: Private residence Patient's Identified Problem/Goal Problem: Ensure acute medical needs are met and that patient has a safe discharge plan. Goal: Secure a discharge plan that patient/family are agreeable with and ensure patient has continuum of care. Case management will follow for discharge planning and send referrals as needed. Goals include: To assure continuity of care, To maximize coping skills, To assure patient is in a safe environment and To assure access to community resources. Plan includes: 1. Collaboration with patient, MD, direct care nurse, Highway Landscape Architect, Nurse Coordinator and other members of the health care team to assure needed interventions completed. 2. Return patient to optimal level of self-care post discharge. 3. District Commercial Superintendent will follow for Discharge Planning - interventions as needed 4. Anticipated level of care at discharge 5. Planned Discharge Disposition Based on a comprehensive family assessment, assistance with instrumental activities of daily livingafter discharge will be provided by family Through the course of our work I determined that the family possesses the skill and ability to provide and monitor the care of the patient when he or she returns home. Family has the capacity to provide/monitor/arrange for the care of the patient. Finally, we determined that family has the knowledge of available resources and that combining them with their existing resources will suffice to sustain and care for the patient when he or she returns home. The treatment team is aware of this information. All are in agreement with the aftercare plan. Katy Ruffin RN ETING LIAISON * Zane Tucker - 08/20/2021 12:25 PM CST Spiritual Care Note Chaplain Zane Tucker M.Div, [facility] 3.2.22 1138 08/20/21 1100 Time Spent Start Time 1130 Stop Time 1135 Time Calculation (min) 5 min Patient Spiritual Assessment Spirituality Assessed Focus of Care Clinical Encounter Type Visited With Patient Response Type Routine visit Routine Visit Introduction Reason for visit SMART (stroke team);Support Outcomes and Progress Demonstrating care and respect Achieved Interventions Interventions Offer emotional support;Offer spiritual/advent support ETING LIAISON * Madelyn Muñoz MD - 08/20/2021 10:39 AM CST Neuro Critical Care Progress Note CC: Hemorrhagic conversion of R occipital stroke Interval Events: Arrived to NNICU yesterday afternoon, VS on arrival were BP 133/95 MAP 107, HR 102, RR 19, sats 96%on RA. Repeat HCT showed evolving but stable intraparenchymal hemorrhage within the right posteriorcerebral artery territory infarct. Seen by NSGY, no plan for surgical intervention. Per NSGY CTA Head obtained which showed no evidence of aneurysm or vascular malformation. Required seroquel 25mg [id number] for restlessness and agitation. This morning, patient is fairly cooperative although inattentive, requiring some redirection. He seems to be having visual hallucinations this morning however had no insight. Vitals 24hr min/max vitals: Temp Min: 36.3 ??C (97.4 ??F) Max: 36.6 ??C (97.9 ??F) Pulse Min: 79 Max: 106 NIBP BP Min: 90/60 Max: 146/93 MAP (mmHg) Av.9 Min: 69 Max: 112 A-line No data recorded I/O: Intake/Output Summary (Last 24 hours) at 08/20/2021 1039 Last data filed at 08/20/2021 0926 Gross per 24 hour Intake 1762 ml Output 1325 ml Net 437 ml UOP: 1325ml LABS Recent Labs Lab Units 08/20/21 0724 08/20/21 0407 08/19/21 2339 08/19/21 1936 08/19/21 1924 08/19/21 1642 SODIUM mmol/L -- -- -- 137 -- 134* POTASSIUM PLASMA mmol/L -- -- -- 3.5 -- 4.0 CHLORIDE mmol/L -- -- -- 102 -- 99 CO2 mmol/L -- -- -- 24 -- 24 ANIONGAP mmol/L -- -- -- 11 -- 11 GLUCOSE mg/dL -- -- -- 148 -- 185 POC GLUCOSE MONITOR mg/dL 156 139 267* -- < > -- BUN SERUM mg/dL -- -- -- 8 -- 9 CREATININE mg/dL -- -- -- 0.70* -- 0.77* CALCIUM mg/dL -- -- -- 9.2 -- 9.8 MAGNESIUM mg/dL -- -- -- 2.2 -- 1.9 PHOSPHORUS PLASMA mg/dL -- -- -- -- -- 3.9 < > = values in this interval not displayed. Recent Labs Lab Units 08/19/21 1936 08/19/21 1642 WBC K/cumm 11.7* 12.0* HEMATOCRIT % 36.1* 39.0 HEMOGLOBIN g/dL 12.3* 12.8* PLATELETS K/cumm 373 398 APTT sec -- 29 INR -- 1.1 Recent Labs Lab Units 08/19/21 1642 ALK PHOS Units/L 111 BILIRUBIN TOTAL mg/dL 0.5 TOTAL PROTEIN g/dL 8.2 ALBUMIN g/dL 4.9 ALT Units/L 19 AST Units/L 17 IMAGING (Most recent) NEURO IMAGIN/2 CTA Head Neck IMPRESSION: 1. Evolving intraparenchymal hemorrhage within the right posterior cerebral artery territory infarct 2. No evidence of aneurysm or vascular malformation. 08/19 CT Head IMPRESSION: Evolving intraparenchymal hemorrhage within the right posterior cerebral artery territory infarct with unchanged localized mass effect. There is no midline shift. Noncontrast HCT at OSH 08/19 IMPRESSION: 1. Interval development of hemorrhage within the previously noted right posterior cerebral artery territory infarct noted on MRI dated07/29/2021. PHYSICAL EXAM: HEENT: Mucous membranes moist with some white film on tongue, very poor dentition. sclera anicteric Cardiac: S1, S2, + murmur, RRR, no R/G, no peripheral edema Pulmonary: Even, unlabored respirations. Symmetric chest rise and fall. Lungs clear to auscultationanterior escamilla, no wheezes. Abdomen: Non-distended and round in appearance, bowel sounds present, soft/non- tender to palpation. Skin: Warm and dry, color appropriate for ethnicity. NEURO EXAM Mental Status Awake, alert, eyes open spont, regards, inattentive, fidgety, follows all commands, speech fluent, oriented x 4 (person, place, time, situation), naming 3/3, repetition intact Cranial Nerves PERRL 3mm brisk, EOMI, left visual field cut, face symmetric, mild dysarthria Motor 5/5 BUE and BLE, no drift NEUROLOGICAL Meds: ??? Atorvastatin 40mg nightly ??? PRN seroquel 25mg nightly ??? 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 -- Carotid duplex (07/29) <49% stenosis bilateral ICA, vertebrals w/ bilateral antegrade flow. CTAwith no significant stenosis. -- s/p 1 unit platelet transfusion at OSH (08/19) -- 08/19 UDS negative -- SMART c/s -- 07/30 +PFO on TTE -> pall filters on IV tubing -- check LEDs -- neuro checks to q4hrs -- MAP < 110 -- holding home ASA/plavix, consider restarting ASA in 5-7 days after verifying stability with HCT -- cont atorva # New onset L visual field hallucinations in setting of R occipital stroke # Hyperactive delirium -- ?Aubrey Yin. No known prior psychiatric illness -- delirium precautions -- Start ramelteon. Continue seroquel 25mg PRN nightly -- Spot EEG CARDIOVASCULAR and HEME Meds: ??? PRN labetalol ??? PRN hydralazine ??? Atorvastatin 40mg nightly EK/2 NSR # Hx of HTN -- MAP < 110 -- PRN labetalol and PRN hydralazine -- Restart home coreg 3.125mg BID # Hx of CAD s/p stents (2006 & 2009) s/p STEMI & 4V CABG 04/2021 -- holding DAPT in setting of hemorrhagic conversion - consider restarting ASA in 5-7 days after verifying stability with HCT -- chart history of plavix nonresponder and swithed to effient in 2009 -- admission EKG no acute ST changes, trop negative # Hx of HFrEF -- TTE (07/30) mild LVH, grade I diastolic dysfunction, EF 35-40%, significant apical akinesis in the LV mild AR, mild LAE, +PFO on saline contrast study -- repeat TTE with contrast r/o thrombus in setting of significant LV apical akinesis -- holding BB # Hx of HLD -- cont statin # PFO -- pall filters to IV tubing PULMONARY Resp Min: 8 Max: 25 SpO2 Min: 91 % Max: 100 % Room Air CXR: 08/19 clear Secretions: none Meds: ??? PRN albuterol # Hx of COPD # Prior tobacco use, quit 04/2021 -- O2 sats >88% -- IS, OOB -- PRN albuterol RENAL Meds: ??? n/a # Hyponatremia - resolved -- Na 132 on discharge (07/28) -- daily BMP -- DC NS given adequate PO intake PO # Hypokalemia, 3.5 -- repleted with KCL 40meq q4hrs x2 doses -- BMP in am # hx Hypovitaminosis D -- check vit D level -- repleted with cholecalciferol 400 units once overnight -- start cholecalciferol 400 units daily starting tomorrow # hx hematuria s/p??cystoscopy, clot evacuation and TURBT by urology on 05/14/21 at [facility] Meds: ??? Senna BID ??? Colace BID ??? Protonix daily Diet: Adult Diet Restricted; Consistent Carbohydrate IV fluids: SLIV Flushes: n/a Last BM: LEAD GENERATOR 24 hour glucose: 102 - 267, 16 units SSI lispro # Nutrition/Dysphagia -- passed bedside swallow exam -- continue carb consistent diet -- PLANS EXAMINER eval per protocol -- senna/colace # DM -- Start Lantus 10 (home 60u daily), consider adding Leah mealtime -- Holding home jardiance -- A1c (07/29/2021) 10.5, Repeat 08/19 10.9 -- Intermediate dose AC/HS # Hx of GERD -- protonix daily INFECTION RELEVANT/MOST RECENT MICRO LAB DATA: Blood cultures: n/a Respiratory cultures: n/a Urinalysis/Urine culture: 08/19 negative Meds: ??? n/a # Leukocytosis, WBC 12, afebrile -- admission UA and CXR negative for infectious process -- PanCx T > 38.5 -- PRN tylenol for fever # COVID-recovered -- hospitalized w/ COVID-19 in May 2021 s/p remdesivir & dexamethasone ACCESS Lines ?? PIV x2 Osorio ??? n/a VTE Prophylaxis Last Venous Doppler: LED (06/01/2021) neg. Repeat LED pending Prophylaxis: SCDs, Restart SQH 5000 Q8H tonight CODE STATUS: Full Code Disposition: NNICU Madelyn Muñoz MD ETING LIAISON * Sonma Fletcher - 08/20/2021 9:29 AM CST Physical Therapy Physical Therapy Initial Assessment NOTE: This is a summary note for the begum assessments completed during the evaluation session. For full details, review chart review for all flowsheets documented on by this physical therapist on thisdate. Vital signs documented in vital signs flowsheet. Assessment Assessment Prognosis: Good Barriers to Discharge: None Plan Plan Plan : Discharge, If this is the last note, consider this the discharge summary PT Recommendation and Plan Recommendation/Plan PT Recommendation/Plan: Home with 24 hour supervision, Outpatient PT PT Recommendation/Plan Comments: Pt agrees to discharge recommendations PT Frequency: One time visit (Discharge from this service) PT - OK to Discharge: Yes PT Evaluation Complete: Yes General Information General Chart Reviewed: Yes Session Type: Evaluation (and initial discharge) PT Received On: 08/20/21 Safe Environment: Arm Band Checked, Chair Alarm placed and activated, Call Light within Reach, Notified RN, Patient found sitting in Chair, Overbed Table within Reach (Pt left sitting in chair) Subjective: Agreeable to Therapy Family/Caregiver Present: No Physical Therapy-Patient Goal: Pt wants to improve walking activities and drive again Prior Function Prior Function Level of [place]: Independent with ADLs, Independent with homemaking with ambulation, Independent functional transfers Lives With: Spouse, Family Receives Help From: Spouse/Significant other, Family (Spouse and kids are able to provide pt second time worker support) Driving: No Fall within the last 6 months: No Home Living Home Living Type of Home: House Home Layout: One level, Able to live on main level with bedroom/bathroom Home Access: Stairs to enter without rails Entrance Stairs-Rails: None Entrance Stairs-Number of Steps: 2 Home Mobility Equipment: Quad cane-large base, Quad cane-small base (Pt alternates between large base quad cane and small base quad cane at baseline) Precautions Precautions Precautions: Airway, Fall risk Pain Pain Assessment Pain Assessment: No/denies pain Cognition Cognition Arousal/Alertness: Alert Orientation : Oriented X4 (person, place, time, situation) Compliance/Behavior: Easy to engage 6 Clicks Basic Mobility - 6 Click How much difficulty does the patient have: Turning over in bed: None How much difficulty does the patient currently have: Sitting down and standing up from a chair witharms?: A little How much difficulty does the patient have: Moving from lying on back to sitting on the side of the bed?: None How much difficulty does the patient have: Moving to and from a bed to a chair including wheelchair?: A little How much help does the patient currently need: Walk in hospital room?: A little How much help from another person does the patient currently need: Climbing 3-5 steps with a railing?: A little Total 6 Click Score (range 6-24): 20 Bed Mobility Bed Mobility 1 Bed Mobility Comments 1: Not assessed due to patient found sitting in chair Transfers Transfer 1 Transfer From 1: Bed Transfer Type 1: To and from Transfer to 1: Chair with arms Technique 1: (Stand and step) Transfer Device 1: No device Transfer Level of Assistance 1: Standby Assist Trials/Comments 1: x1 trials. Pt ascends and descends with UEs. 1 small LOB when turning to sit butpt self corrects by touching bedrail and using RLE to descend onto the bed. No falls occured Transfers 2 Transfer From 2: Sit Transfer Type 2: To and from Transfer to 2: Stand Transfer Device 2: No device Transfer Level of Assistance 2: Standby Assist Trials/Comments 2: x3 trials. Pt ascends and descends with UEs. No LOB observed Balance Static Sitting Balance Static Sitting-Balance Support: No upper extremity supported Static Sitting-Sitting Surface: Chair Static Sitting-Level of Assistance: Close supervision Static Sitting-Comment/# of Minutes: Close supervision to ensure safety. No LOB noted Static Standing Balance Static Standing-Balance Support: No upper extremity supported Static Standing-Standing Surface: Floor Static Standing-Level of Assistance: Close supervision Static Standing-Comment/# of Minutes: Close supervision to ensure safety. No LOB noted Ambulation Ambulation 1 Distance (ft) 1: 122 Surface 1: Level tile Device 1: Single point cane Assistance 1: Standby Assist, Contact Guard Assist Gait: Requires verbal cues to 1: Prevent bumping into environmental barriers (alberto/furniture), Increase base of support Quality of Gait 1: Pt has decreased base of support, decreased isabell, and decreased step length. Ambulation Comments 1: Pt deviates outside the line of straight path. CGA was used with pt for 2 small LOBs when turning corners, but pt self corrects their balance by weight shiting towards cane, pausing ambulation for a few seconds, and then continues ambulating. No falls occured. Gait speed: 0.24 m/s Stairs Stairs Stair Comments: x2 trials. Trial 1: Pt ascends reciprocally and descends with LLE nonreciprocally. Trial 2: Pt cued to ascend nonreciprocally with RLE and to descend nonreciprocally with LLE. Trial 2was appropriate for patient. Pt was given stair education. No LOBs or falls occured. Stairs Number of Stairs 1: 2 Rails 1: None (Comment) Device 1: Single point cane Assistance 1: Standby Assist Curbs RLE Assessment RLE Assessment RLE Assessment: Within Functional Limits Strength RLE R Hip Flexion: 4+/5 R Knee Flexion: 5/5 R Knee Extension: 5/5 R Ankle Dorsiflexion: 5/5 R Ankle Plantar Flexion: 5/5 LLE Assessment LLE Assessment LLE Assessment: Within Functional Limits Strength LLE L Hip Flexion: 5/5 L Knee Flexion: 5/5 L Knee Extension: 5/5 L Ankle Dorsiflexion: 5/5 L Ankle Plantar Flexion: 5/5 Equipment Used Equipment Use Equipment Use Comments: gait belt used Other Comments Other Comments Other PT Comments: Pt hallucinated a few times throughout the session, but it did not disrupt PT visit. RN notified PT Goals Multi-Disciplinary Problems (from Physical Therapy) Active Problems Not on file Cosigned by Hodan Cox PT at 08/20/2021 4:33 PM MARKETING LIAISON ETING LIAISON ETING LIAISON * Deirdre Patten NP - 08/20/2021 6:46 AM CST Neuro Critical Care Progress Note CC: Hemorrhagic conversion of R occipital stroke HPI: Deepak Alvarado is a 61 year old right-handed male with PMH COPD, HTN, HLD, DM, smoker (recently quit), CAD s/p [place] & CABG. He was recently admitted to [facility] 05/04/21-06/03/21 with STEMI s/p 4V CABG and additionally hospital course complicated by COVID pneumonia. He was admitted [facility] again 07/28/2021-07/30/2021 with c/o left visual field loss and headache and found to have multifocal acute ischemic stroke, however he left AMA and returned for completion of stroke workupand was ultimately discharged home. He presented to [facility] ED today (08/19/2021) with complaints of hallucinations described as seeing people who aren't there , he denies history of psychiatric illness. His states that he had been hallucinating for ~4 days and she said he had been talking to the hallucinations, punched a door and his behavior was escalating. Head CT demonstrated right occipital parietal infarction with new intraparenchymal hemorrhage. Significant lab values: INR 1.0, PTT 33, ETOH < 10, Na 132, glu 311. VitalsBP 123/94, HR 105, RR 18, sats 97% on RA. He was transfused one unit platelets and transferred via ambulance to [facility] NNICU for further workup and management of hemorrhagic conversion of ischemic stroke. On arrival to the ICU BP 132/101, HR 89, sats 96% on RA. He denies recent falls, weakness, numbness, tingling, pain, incontinence. On exam he was mildly dysarthric with a left visual field cut, moving all extremities spontaneously and equally. Interval Events: Arrived to NNICU yesterday afternoon, VS on arrival were BP 133/95 MAP 107, HR 102, RR 19, sats 96%on RA. Repeat HCT showed evolving intraparenchymal hemorrhage with right posterior cerebral artery.Seen by NSGY, no plan for surgical intervention. Per NSGY CTA Head obtained which showed no evidence of aneurysm or vascular malformation, same evolving SHIPYARD PAINTER territory IPH. Required seroquel 25mg x1 overnight for restlessness and agitation This morning, patient is fairly cooperative although inattentive, requiring some redirection. He denies hallucinations at this time. Vitals 24hr min/max vitals: Temp Min: 36.4 ??C (97.5 ??F) Max: 36.6 ??C (97.9 ??F) Pulse Min: 79 Max: 106 NIBP BP Min: 90/60 Max: 146/93 MAP (mmHg) Av.6 Min: 69 Max: 112 A-line No data recorded I/O: Intake/Output Summary (Last 24 hours) at 08/20/2021 0646 Last data filed at 08/20/2021 0600 Gross per 24 hour Intake 1225 ml Output 1325 ml Net -100 ml UOP: 1325ml LABS Recent Labs Lab Units 08/20/21 0407 08/19/21 2339 08/19/21193508/19/21192308/19/21 1642 SODIUM mmol/L -- -- 137 -- 134* POTASSIUM PLASMA mmol/L -- -- 3.5 -- 4.0 CHLORIDE mmol/L -- -- 102 -- 99 CO2 mmol/L -- -- 24 -- 24 ANIONGAP mmol/L -- -- 11 -- 11 GLUCOSE mg/dL -- -- 148 -- 185 POC GLUCOSE MONITOR mg/dL 139 267* -- < > -- BUN SERUM mg/dL -- -- 8 -- 9 CREATININE mg/dL -- -- 0.70* -- 0.77* CALCIUM mg/dL -- -- 9.2 -- 9.8 MAGNESIUM mg/dL -- -- 2.2 -- 1.9 PHOSPHORUS PLASMA mg/dL -- -- -- -- 3.9 < > = values in this interval not displayed. Recent Labs Lab Units 08/19/21193508/19/21 164 WBC K/cumm 11.7* 12.0* HEMATOCRIT % 36.1* 39.0 HEMOGLOBIN g/dL 12.3* 12.8* PLATELETS K/cumm 373 398 APTT sec -- 29 INR -- 1.1 Recent Labs Lab Units 08/19/21 1642 ALK PHOS Units/L 111 BILIRUBIN TOTAL mg/dL 0.5 TOTAL PROTEIN g/dL 8.2 ALBUMIN g/dL 4.9 ALT Units/L 19 AST Units/L 17 IMAGING (Most recent) NEURO IMAGIN/2 CTA Head Neck IMPRESSION: 1. Evolving intraparenchymal hemorrhage within the right posterior cerebral artery territory infarct 2. No evidence of aneurysm or vascular malformation. 08/19 CT Head IMPRESSION: Evolving intraparenchymal hemorrhage within the right posterior cerebral artery territory infarct with unchanged localized mass effect. There is no midline shift. Noncontrast HCT at OSH 08/19 IMPRESSION: 1. Interval development of hemorrhage within the previously noted right posterior cerebral artery territory infarct noted on MRI dated07/29/2021. PHYSICAL EXAM: HEENT: Mucous membranes moist with some white film on tongue, very poor dentition. sclera anicteric Cardiac: S1, S2, + murmur, RRR, no R/G, no peripheral edema Pulmonary: Even, unlabored respirations. Symmetric chest rise and fall. Lungs clear to auscultationanterior escamilla, no wheezes. Abdomen: Non-distended and round in appearance, bowel sounds present, soft/non- tender to palpation. Skin: Warm and dry, color appropriate for ethnicity. NEURO EXAM Mental Status Awake, alert, eyes open spont, regards, inattentive, fidgety, follows all commands, speech fluent, oriented x 4 (person, place, time, situation), naming 3/3, repetition intact Cranial Nerves PERRL 3mm brisk, EOMI, left visual field cut, face symmetric, mild dysarthria Motor 5/5 BUE and BLE, no drift NEUROLOGICAL Meds: ??? Atorvastatin 40mg nightly ??? PRN seroquel 25mg nightly ??? PRN tylenol # Hemorrhagic conversion of R occipital ischemic stroke -- MRI/MRA (07/29) w/ posterior R temporal and occipital AIS in R SHIPYARD PAINTER distribution, small R parietal AIS, R thalamus/left pontine chronic infarcts, mild microvascular ischemic white matter changes, Small focal severe stenosis along the distal right MCA M1 segment. -- Carotid duplex (07/29) <49% stenosis bilateral ICA, vertebrals w/ bilateral antegrade flow -- s/p 1 unit platelet transfusion at OSH (08/19) -- 08/19 UDS negative -- SMART c/s -- 07/30 +PFO on TTE -> pall filters on IV tubing -- check LED (pending completion) -- change neuro checks to q4hrs -- MAP < 110 -- repeat HCT for exam changes -- hold home ASA/plavix -- cont atorva # Acute Agitation # Hallucinations in setting of occipital stroke, described as seeing people who aren't there -- denies psychiatric illness -- delirium precautions -- patient became restless and agitated yesterday evening -- given seroquel 25mg x1 overnight -- continue seroquel 25mg PRN nightly # Acute Pain -- PRN Tylenol CARDIOVASCULAR and HEME Meds: ??? PRN labetalol ??? PRN hydralazine ??? Atorvastatin 40mg nightly EK/2 NSR # Hx of HTN -- MAP < 110 -- PRN labetalol and PRN hydralazine -- holding home coreg 3.125mg BID # Hx of CAD s/p stents (2006 & 2009) s/p STEMI & 4V CABG 04/2021 -- holding DAPT in setting of hemorrhagic conversion -- chart history of plavix nonresponder and swithed to effient in 2009 -- holding home coreg -- admission EKG no acute ST changes, trop negative # Hx of HFrEF -- TTE (07/30) mild LVH, grade I diastolic dysfunction, EF 35-40%, significant apical akinesis in the LV mild AR, mild LAE, +PFO on saline contrast study -- repeat TTE r/o thrombus in setting of significant LV apical akinesis -- holding BB # Hx of HLD -- cont statin # PFO -- pall filters to IV tubing PULMONARY Resp Min: 8 Max: 25 SpO2 Min: 91 % Max: 100 % Room Air CXR: 08/19 clear Secretions: none Meds: ??? PRN albuterol # Hx of COPD # Prior tobacco use, quit 04/2021 -- O2 sats >88% -- IS, OOB -- PRN albuterol RENAL Meds: ??? n/a # Hyponatremia, 134 -- Na 132 on discharge (07/28) -- daily BMP -- improved to 137 today -- continue NS 75ml/hr, consider discontinuing if tolerating PO # Hypokalemia, 3.5 -- repleted with KCL 40meq q4hrs x2 doses -- BMP in am # hx Hypovitaminosis D -- check vit D level -- repleted with cholecalciferol 400 units once overnight -- start cholecalciferol 400 units daily starting tomorrow # hx hematuria s/p??cystoscopy, clot evacuation and TURBT by urology on 05/14/21 at [facility] Meds: ??? Senna BID ??? Colace BID ??? Protonix daily Diet: Adult Diet Restricted; Consistent Carbohydrate IV fluids: NS @ 75mL/hr Flushes: n/a Last BM: LEAD GENERATOR 24 hour glucose: 102 - 267, 16 units SSI lispro # Nutrition/Dysphagia -- passed bedside swallow exam -- continue carb consistent diet -- PLANS EXAMINER eval per protocol # DM -- holding home lantus and jardiance -- A1c (07/29/2021) 10.5, Repeat 08/19 109 -- change accuchecks/SSI to AC/HS # Contipation ppx -- senna/colace # Hx of GERD -- protonix daily INFECTION RELEVANT/MOST RECENT MICRO LAB DATA: Blood cultures: n/a Respiratory cultures: n/a Urinalysis/Urine culture: 08/19 negative Meds: ??? n/a # Leukocytosis, WBC 12, afebrile -- admission UA and CXR negative for infectious process -- PanCx T > 38.5 -- PRN tylenol for fever # COVID-recovered -- hospitalized w/ COVID-19 in May 2021 s/p remdesivir & dexamethasone ACCESS Lines ?? PIV x2 Osorio ??? n/a VTE Prophylaxis Last Venous Doppler: LED (06/01/2021) neg. Repeat LED Prophylaxis: SCDs, holding SQH in setting of hemorrhage CODE STATUS: Full Code Disposition: NNICU Deirdre Patten NP Cosigned by Albino Bowling MD PhD at 08/26/2021 5:09 PM MARKETING LIAISON ETING LIAISON ETING LIAISON ETING LIAISON ETING LIAISON * Alfa Fletcher MD - 08/20/2021 6:27 AM CST Neurosurgery Daily Progress Note 08/20/2021 Hospital Course 08/19 Admitted. Repeat HCT stable. CTA neg. Objective Physical Exam: OE, R, FC Ox3 PERRL, EOMI, FS, TML, L field cut No drift MAEW - 5/5 BUE and symmetric, >=4+/5 BLE Vitals: 24hr min/max vitals: Temp Min: 36.4 ??C (97.5 ??F) Max: 36.6 ??C (97.9 ??F) Pulse Min: 79 Max: 106 Resp Min: 8 Max: 25 SpO2 Min: 91 % Max: 100 % MAP (mmHg) Min: 69 Max: 112 Intake and output: I/O last 2 completed shifts: In: 125 [I.V.:75; IV Piggyback:50] Out: 200 [Urine:200] Medications: Scheduled Scheduled Medications Medication Dose Route Frequency ??? atorvastatin (LIPITOR) tablet 40 mg 40 mg oral Nightly ??? docusate sodium (COLACE) capsule 100 mg 100 mg oral BID ??? insulin lispro (HumaLOG, ADMELOG) 100 unit/mL injection 2-10 Units 2-10 Units subcutaneous Q4H ??? pantoprazole DR (PROTONIX) extended release tablet 40 mg 40 mg oral Daily ??? senna (SENOKOT) tablet 1 tablet 1 tablet oral BID As needed PRN Medications Medication Dose Route Frequency Last Admin ??? albuterol 2.5 mg/0.5 mL nebulizer solution 2.5 mg 2.5 mg nebulization Q4H PRN (RT) ??? dextrose (GLUTOSE) 40 % gel 15 g 15 g oral Q15 Min PRN Or ??? dextrose (D10W) 10% bolus 250 mL 250 mL intravenous Q15 Min PRN ??? glucagon injection 1 mg 1 mg intramuscular Q30 Min PRN ??? labetaloL (NORMODYNE,TRANDATE) injection 10 mg 10 mg intravenous Q15 Min PRN Or ??? hydrALAZINE (APRESOLINE) injection 10 mg 10 mg intravenous Q15 Min PRN ??? ondansetron (ZOFRAN) injection 4 mg 4 mg intravenous Q6H PRN ??? QUEtiapine (SEROquel) tablet 25 mg 25 mg oral Nightly PRN 25 mg at 08/19/212241 ??? trimethobenzamide (TIGAN) injection 200 mg 200 mg intramuscular Q6H PRN Labs: Lab Results Component Value Date SODIUM 137 08/19/2021 SODIUM 134 (L) 08/19/2021 SODIUM 132 (L) 07/28/2021 Lab Results Component Value Date GLUCOSE 139 08/20/2021 CALCIUM 9.2 08/19/2021 POTASSIUM 3.5 08/19/2021 CO2 24 08/19/2021 CHLORIDE 102 08/19/2021 BUNSER 8 08/19/2021 CREATININE 0.70 (L) 08/19/2021 Lab Results Component Value Date WBC 11.7 (H) 08/19/2021 WBC 12.0 (H) 08/19/2021 WBC 15.4 (H) 07/28/2021 HGB 12.3 (L) 08/19/2021 HGB 12.8 (L) 08/19/2021 HGB 13.2 07/28/2021 HCT 36.1 (L) 08/19/2021 HCT 39.0 08/19/2021 HCT 39.3 07/28/2021 LABPLAT 373 08/19/2021 LABPLAT 398 08/19/2021 LABPLAT 394 07/28/2021 Lab Results Component Value Date INR 1.1 08/19/2021 INR 1.3 (H) 05/12/2021 INR 1.3 (H) 05/05/2021 PT 11.7 08/19/2021 PT 14.0 (H) 05/12/2021 PT 14.4 (H) 05/05/2021 APTT 29 08/19/2021 APTT 29 05/12/2021 APTT 33 05/05/2021 No components found for: TROPONIN PT/OT assessment: Assessment/Plan Hospital Day: 2 Deepak Alvarado is a 61 y.o. year old male who presents with hemorrhagic conversion of stroke, CTA neg. Plan Transfer to ICU/stroke service No acute neurosurgical intervention Responsible team (call resident in bold with questions) Loree Manley MD (Rylan) Asif Aponte MD, PhD (Senior) Alfa Fletcher MD (Chief) Note created by Alfa Fletcher MD on 08/20/2021 at 6:28 AM. Cosigned by Ramin Christine MD at 08/21/2021 9:17 AM MARKETING LIAISON ETING LIAISON ETING LIAISON Associated attestation - Ramin Christine MD - 08/21/2021 9:17 AM MARKETING LIAISON I have seen and examined the patient on 08/20/2021. I agree with the findings and plan of care as documented in the resident's/fellow's note. documented in this encounter H&P Notes * Ronnie Pereira MD - 08/19/2021 8:42 PM CST Neurosurgery History and Physical Patient: Deepak Alvarado CSN: [id number] : 1960 Admission date: 08/19/2021 Admitting attending: Dr. Christine Chief complaint: Hemorrhagic conversion of ischemic stroke History of present illness: Deepak Alvarado is a 61 y.o. R-handed male with PMH of COPD, hypertension, diabetes, tobacco use, CADs/p [place] and CABG who presents with hemorrhagic conversion of a prior SHIPYARD PAINTER ischemic stroke. Patient was initially admitted to an outside hospital on 07/28/2021 with complaints of left visual deficits and headache and was found to have ischemic infarction of the right SHIPYARD PAINTER. He left the hospital AMA at that time but ultimately did receive a full stroke workup. He presented to the OSH on 08/19 with visual hallucinations. He describes these as seeing people who are not actually present in the room. Head CT demonstrated his prior right occipital infarction, now with new hemorrhagic conversion. He was t ransferred to [facility] for further management. Denies headache, difficulty speaking, weakness, numbness/tingling, difficulty with ambulation, N/V, or recent falls. He has no history of psychiatric illness. He is on aspirin and Plavix for his history of CABG. Review of systems: A full review of systems was completed and was negative unless otherwise stated in the HPI. Past medical/surgical history: 1. CAD s/p [place] and CABG (STEMI with 4 vessel CABG in April 2021) 2. COPD 3. HTN 4. HLD 5. DM2 6. Tobacco use Allergies: Allergies Allergen Reactions ? ? Metformin Nausea & Vomiting ??? Metoclopramide Medications: HOME MEDICATIONS : albuterol HFA (PROVENTIL HFA,VENTOLIN HFA,PROAIR HFA) 90 mcg/actuation inhaler aspirin 81 mg enteric coated tablet atorvastatin (LIPITOR) 40 mg tablet carvediloL (COREG) 3.125 mg tablet clopidogreL (PLAVIX) 75 mg tablet empagliflozin (JARDIANCE) 10 mg tablet insulin glargine (LANTUS, SEMGLEE) 100 unit/mL vial for injection pantoprazole DR (PROTONIX) 40 mg EC tablet traMADoL (ULTRAM) 50 mg tablet Social history: He has a 40 pack year smoking history. He denies alcohol use or drug use. He is retired. He lives with his Geno who may be reached at [phone]. Family history: Reviewed and noncontributory. Physical Examination: Neuro: Opens eyes spontaneously, regards, follows commands, sustains attention. A+Ox3. Answers questions appropriately, speech fluent, conversant. Naming/repetition intact. Left homonymous hemianopsia PERRL 3-->2, EOMI, FS, TML 5/5 strength in BUE and BLE No pronator drift Negative Wei's, no clonus, negative Babinski Sensation intact to light touch symmetrically in BUE and BLE Psych: No current visual hallucinations Constitutional: well developed HENT: normocephalic Cardiovascular: normal rate Pulmonary: normal respiratory effort Abdominal: non-tender Musculoskeletal: no deformity Imaging and Labs: Head CT dated 08/19/2021 demonstrates hemorrhage within areas of hypodensity corresponding to the patient's prior right occipital stroke. There is slight mass effect upon the posterior aspect of the right occipital horn. There is no midline shift. Assessment and Plan: 61 y/o male on ASA and Plavix with history of prior R occipital stroke presents with new visual hallucinations. On admission to [facility], he is not having hallucinations but does have a L homonymous hemianopsia. His head CT demonstrates hemorrhagic conversion of his prior R occipital ischemic infarction. He did not receive a CTA at the OSH, so we will obtain one now. We will also plan to hold his ASA and Plavix. No acute neurosurgical intervention is needed at this time. He is admitted to the NNICU. 1. BMP, CBC, PT, PTT, UA macro-micro, CXR, EKG, T&S, COVID 2. CTA 3. Hold ASA/Plavix 4. Stroke Neurology c/s This plan has been discussed with the chief resident and attending bacon skin lifter. Ronnie Pereira MD Resident Physician, PGY-1 Department of Neurosurgery Cosigned by Ramin Christine MD at 08/21/2021 9:13 AM MARKETING LIAISON ETING LIAISON ETING LIAISON Associated attestation - Ramin Christine MD - 08/21/2021 9:13 AM MARKETING LIAISON I have seen and examined the patient on 08/20/2021. I agree with the findings and plan of care as documented in the resident's/fellow's note.. Hemorrhagic conversion of right SHIPYARD PAINTER infarct. There is no significant mass effect. No acute neurosurgical intervention indicated. * Antonio Fisher, EFREN - 08/19/2021 4:00 PM CST Neuro Critical Care Admission H&P CC: Hemorrhagic conversion of R occipital stroke HPI: Deepak Alvarado is a 61 year old right-handed male with PMH COPD, HTN, HLD, DM, smoker (recently quit), CAD s/p [place] & CABG. He was recently admitted to [facility] 05/04/21-06/03/21 with STEMI s/p 4V CABG and additionally hospital course complicated by COVID pneumonia. He was admitted [facility] again 07/28/2021-07/30/2021 with c/o left visual field loss and headache and found to have multifocal acute ischemic stroke, however he left AMA and returned for completion of stroke workupand was ultimately discharged home. He presented to [facility] ED today (08/19/2021) with complaints of hallucinations described as seeing people who aren't there , he denies history of psychiatric illness. His states that he had been hallucinating for ~4 days and she said he had been talking to the hallucinations, punched a door and his behavior was escalating. Head CT demonstrated right occipital parietal infarction with new intraparenchymal hemorrhage. Significant lab values: INR 1.0, PTT 33, ETOH < 10, Na 132, glu 311. VitalsBP 123/94, HR 105, RR 18, sats 97% on RA. He was transfused one unit platelets and transferred via ambulance to [facility] NNICU for further workup and management of hemorrhagic conversion of ischemic stroke. On arrival to the ICU BP 132/101, HR 89, sats 96% on RA. He denies recent falls, weakness, numbness, tingling, pain, incontinence. On exam he was mildly dysarthric with a left visual field cut, moving all extremities spontaneously and equally. Past Medical History: Diagnosis Date ??? Chronic obstructive pulmonary disease (CMS/HCC) (HCC) COPD ??? Coronary artery disease ??? DM type 2 (diabetes mellitus, type 2) (HCC) ??? HLD (hyperlipidemia) ??? Hypertension Hypertension ??? ST elevation (STEMI) myocardial infarction (HCC) 05/01/2021 ??? Tobacco abuse, in remission In remission since 04/2021 Past Surgical History: Procedure Laterality Date ??? CARDIAC STENT PLACEMENT ??? CORONARY ARTERY BYPASS GRAFT 05/2021 Four-vessel [facility] Social History Tobacco Use ??? Smoking status: Former Smoker Packs/day: 1.00 Years: 40.00 Pack years: 40.00 Types: Cigarettes ??? Smokeless tobacco: Never Used ??? Tobacco comment: Stop smoking 04/2021 after [place] Substance Use Topics ??? Alcohol use: No Lives at home with and 2 sons, former smoker, quit 04/2021, denies ETOH, denies illicits, no longer working. Family History Problem Relation Age of Onset ??? COPD Father Allergies Allergen Reactions ? ? Metformin Nausea & Vomiting ??? Metoclopramide Medications Prior to Admission Medication Sig Dispense Refill Last Dose ??? albuterol HFA (PROVENTIL HFA,VENTOLIN HFA,PROAIR HFA) 90 mcg/actuation inhaler Inhale 2 puffs every 6 (six) hours as needed for wheezing or shortness of breath ??? aspirin 81 mg enteric coated tablet Take 1 tablet (81 mg total) by mouth daily 30 tablet 11 ??? atorvastatin (LIPITOR) 40 mg tablet Take 1 tablet (40 mg total) by mouth daily 30 tablet 0 ??? carvediloL (COREG) 3.125 mg tablet Take 1 tablet (3.125 mg total) by mouth 2 (two) times a day with meals 60 tablet 3 ??? clopidogreL (PLAVIX) 75 mg tablet Take 1 tablet (75 mg total) by mouth daily 30 tablet 3 ??? empagliflozin (JARDIANCE) 10 mg tablet Take 10 mg by mouth daily ??? insulin glargine (LANTUS, SEMGLEE) 100 unit/mL vial for injection Inject 60 Units under the skin nightly ??? pantoprazole DR (PROTONIX) 40 mg EC tablet Take 40 mg by mouth daily Review of Systems: All other systems negative except as indicated in HPI. Vitals 24hr min/max vitals: Temp Min: 36.6 ??C (97.9 ??F) Max: 36.6 ??C (97.9 ??F) Pulse Min: 90 Max: 102 NIBP BP Min: 133/95 Max: 146/82 MAP (mmHg) Av Min: 97 Max: 107 A-line No data recorded I/O: No intake or output data in the 24 hours ending 08/19/21 5794 LABS Recent Labs Lab Units 08/19/21 1642 SODIUM mmol/L 134* POTASSIUM PLASMA mmol/L 4.0 CHLORIDE mmol/L 99 CO2 mmol/L 24 ANIONGAP mmol/L 11 GLUCOSE mg/dL 185 BUN SERUM mg/dL 9 CREATININE mg/dL 0.77* CALCIUM mg/dL 9.8 MAGNESIUM mg/dL 1.9 PHOSPHORUS PLASMA mg/dL 3.9 Recent Labs Lab Units 08/19/21 1642 WBC K/cumm 12.0* HEMATOCRIT % 39.0 HEMOGLOBIN g/dL 12.8* PLATELETS K/cumm 398 APTT sec 29 INR 1.1 Recent Labs Lab Units 08/19/21 1642 ALK PHOS Units/L 111 BILIRUBIN TOTAL mg/dL 0.5 TOTAL PROTEIN g/dL 8.2 ALBUMIN g/dL 4.9 ALT Units/L 19 AST Units/L 17 IMAGING (Most recent) NEURO IMAGING: Noncontrast HCT at OSH 08/19 IMPRESSION: 1. Interval development of hemorrhage within the previously noted right posterior cerebral artery territory infarct noted on MRI dated07/29/2021. PHYSICAL EXAM: HEENT: Mucous membranes dry with white film on tongue, poor dentition. sclera anicteric Cardiac: RRR, no M/R/G. Pulmonary: Even, unlabored respirations. Symmetric chest rise and fall. Lungs clear to auscultationanterior escamilla, no wheezes. Abdomen: Non-distended and round in appearance, bowel sounds present, soft/non- tender to palpation. Skin: Warm and dry, color appropriate for ethnicity. NEURO EXAM Mental Status Eyes open spont, regards, follows all commands, speech fluent, oriented x 3, naming 3/3, repetitionintact Cranial Nerves PERRL 3mm brisk, EOMI, left visual field cut, Face symmetric, mild dysarthria Motor 5/5 BUE and BLE, no drift NEUROLOGICAL Meds: ??? Atorvastatin 40mg nightly ??? PRN tylenol # Hemorrhagic conversion of R occipital ischemic stroke -- MRI/MRA (07/29) w/ posterior R temporal and occipital AIS in R SHIPYARD PAINTER distribution, small R parietal AIS, R thalamus/left pontine chronic infarcts, mild microvascular ischemic white matter changes, Small focal severe stenosis along the distal right MCA M1 segment. -- Carotid duplex (07/29) <49% stenosis bilateral ICA, vertebrals w/ bilateral antegrade flow -- s/p 1 unit platelet transfusion at OSH (08/19) -- follow up UDS -- SMART c/s -- +PFO on TTE -> pall filters on IV tubing -- admission HCT pending -- check LED -- neuro checks q1h -- MAP < 110 -- repeat HCT for exam changes -- hold home ASA/plavix -- cont atorva # Hallucinations in setting of occipital stroke, described as seeing people who aren't there -- denies psychiatric illness -- delirium precuations CARDIOVASCULAR and HEME Meds: ??? PRN labetalol ??? PRN hydralazine ??? Atorvastatin 40mg nightly EK/2 NSR # HTN -- MAP < 110 -- PRN labetalol and PRN hydralazine -- hold home coreg 3.125mg BID # CAD s/p stents (2006 & 2009) s/p STEMI & 4V CABG 04/2021 -- holding DAPT in setting of hemorrhagic conversion -- chart history of plavix nonresponder and swithed to effient in 2009 -- holding coreg -- admission EKG # HFrEF -- TTE (07/30) mild LVH, grade I diastolic dysfunction, EF 35-40%, significant apical akinesis in the LV mild AR, mild LAE, +PFO on saline contrast study -- repeat TTE r/o thrombus in setting of significant LV apical akinesis -- holding BB # HLD -- cont statin # PFO -- pall filters to IV tubing PULMONARY Resp Min: 16 Max: 19 SpO2 Min: 96 % Max: 97 % Room Air CXR: 08/19 pending Secretions: none Meds: ??? PRN albuterol # COPD # Prior tobacco use, quit 04/2021 -- O2 sats >88% -- IS, OOB -- PRN albuterol -- f/up admission CXR RENAL Meds: ??? n/a # Hyponatremia -- Na 132 on discharge (07/28) -- daily BMP -- NS 75 # Hypomagnesemia -- repleted with 2g -- check AM mag # hx Hypovitaminosis D -- check vit D level # hx hematuria s/p??cystoscopy, clot evacuation and TURBT by urology on 05/14/21 at [facility] Meds: ??? Senna BID ??? Colace BID ??? Protonix daily Diet: NPO Diet IV fluids: NS @ mL/hr Flushes: n/a Last BM: LEAD GENERATOR # Nutrition/Dysphagia -- PLANS EXAMINER -- diabetic diet vs NGT # DM -- holding home lantus and jardiance -- A1c (07/29/2021) 10.5, repeat on admission -- accuchecks/SSI q4h # Contipation ppx -- senna/colace # GERD -- protonix daily INFECTION RELEVANT/MOST RECENT MICRO LAB DATA: Blood cultures: n/a Respiratory cultures: n/a Urinalysis/Urine culture: 08/19 pending Meds: ??? n/a # Leukocytosis, WBC 12, afebrile -- f/up admission UA -- PanCx T > 38.5 -- PRN tylenol for fever # COVID-recovered -- hospitalized w/ COVID-19 in May 2021 s/p remdesivir & dexamethasone ACCESS Lines ?? PIV Osorio ??? n/a VTE Prophylaxis Last Venous Doppler: LED (06/01/2021) neg. Repeat LED Prophylaxis: SCDs, holding SQH in setting of hemorrhage CODE STATUS: Full Code Disposition: [facility] Antonio Fisher NP Cosigned by German Shaffer MD at 09/01/2021 12:00 PM CDT ETING LIAISON documented in this encounter Consult Notes * Robby Archer III, RN - 08/20/2021 11:57 AM CSTAssociated Order(s): BOOM CONVEYOR OPERATOR CONSULT Smart Note for Stroke Patient presents from: home Arriving by: private transportation To: ED Patient is an inpatient in division [facility] with a clinical stroke diagnosis of right ischemic occipital stroke with hemorrhagic conversion. Patient was last known well at August 18, 2021 when he/she was noted with symptoms starting on August 19, 2021 of: Left visual field cut -BARRON-hallucination. IV TPA given: No Hemorrhagic conversion Location: [facility] ED IA intervention: No Patient stated goals: Patient hopes to return home with independence ;no BARRON's-no hallucinations-mproved vision. Recommendations: SMART will assess for rehab needs and stroke education. SMART Education Stroke warning signs , Patient instructed regarding how to activate EMS/911 and voice understanding: Yes, Discussed need to follow up after discharge for , Taught about prescribed medications: , Discussed risk factors: and Secondary stroke prevention instructions including: Discussed risk factors: hypertension diabetes mellitus elevated cholesterol age greater than 55 cardiac vavular disease Secondary stroke prevention instruction includes:Medication compliance Blood pressure monitoring Maintain regular physician appointments Stroke education provided to: patient DVT prophylaxis includes:heparin To contact the SMART nurse call [phone] [employer] cards left with education packet for additional questions Database consent information: verbal consent for stroke database given consent in person consent obtained from patient. ETING LIAISON documented in this encounter Nursing Notes * Natalie Hassan RN - 08/21/2021 3:04 PM CST Pt. IVs removed. Put in hospital elopement scrubs and a gown. Received meds from mobile pharmacy. Picked up at patient diamond picker by and son. ETING LIAISON * Jeffrey Taylor RN - 08/20/2021 4:20 PM CST Patient is transferred to [facility] with all his belonging and handover report given to Tamie POE. ETING LIAISON documented in this encounter Miscellaneous Notes * Significant Event - Deirdre Patten, EFREN - 08/20/2021 4:18 PM MARKETING LIAISON I spoke at length with the patient's , Geno Alvarado via phone. We discussed the patient's progress and plan of care as well as the pending transfer to neuro SDU. ETING LIAISON * Hospital Course - Александр Roger MD PhD - 08/20/2021 2:07 PM CST Deepak Alvarado is a 61 year old right-handed male with PMH COPD, HTN, HLD, DM, smoker (recently quit),CAD s/p [place] & CABG. He was admitted to [facility] 05/04/21-06/03/21 with STEMI s/p 4V CABG and additionally hospital course complicated by COVID pneumonia. He was admitted to the hospital again 07/28/2021- 07/30/2021 with c/o left visual field loss and headache and found to have multifocal acute ischemic stroke. He presented to [facility] (08/19/2021) with complaints of hallucinations described as seeing people whoaren't there , he denies history of psychiatric illness. His states that he had been hallucinating for ~4 days and she said he had been talking to the hallucinations, punched a door and his behavior was escalating. Head CT demonstrated right occipital parietal infarction with new intraparenchym al hemorrhage. Significant lab values: INR 1.0, PTT 33, ETOH < 10, Na 132, glu 311. Vitals BP 123/94, HR 105, RR 18, sats 97% on RA. He was transfused one unit platelets and transferred via ambulance to [facility] NNICU for further workup and management of hemorrhagic conversion of ischemic stroke. [facility] Course On arrival to the ICU BP 132/101, HR 89, sats 96% on RA. He denied recent falls, weakness, numbness, tingling, pain, incontinence. On admission exam he was mildly dysarthric with a left visual field cut, moving all extremities spontaneously and equally, NIHSS 2 (1 escamilla, 1 dysarthria). Repeat HCT showed evolving intraparenchymal hemorrhage with right posterior cerebral artery territory infarct. Seen by NSGY, no plan for surgical intervention. Per NSGY CTA Head obtained which showed no evidenceof aneurysm or vascular malformation, same evolving SHIPYARD PAINTER territory IPH. The patient was observed in the NNICU and was then transferred to the [facility] Neuro stepdown. The patient was then transferred to stroke SDU. 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 The patient had routine EEG in the NNICU that did not demonstrate epileptiform abnormalities (though no hallucinations were captured), and patient was started on empiric Keppra 1g BID withplans for followup. A loop was placed on discharge as a loop had not previously been placed (the prior stroke discharge plan was to get a Holter from the patient's cardiology team). 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 The likely etiology of the hemorrhagic conversion was spontaneous hemorrhagic conversion, as CTA waswithout vascular malformation. He was endorsing visual hallucinations (formed, people) involving the L hemifield, and on conversation with the floor neurology team these were felt to be either release hallucinations (Aubrey-Bonnet syndrome) or occipital seizures. The patient was started on Keppra for seizure management and single antiplatelet therapy was re-instituted (given the fact that PH1 does not carry significant risk of neurologic deterioration) with plans to discuss DAPT in the outpatient setting with his Cardiothoracic surgeon. Etiology: The etiology of hemorrhagic conversion was likely spontaneous given absence of vascular malformation. The etiology of hallucinations was either release hallucinations in the setting of evolving infarct (the hemorrhagic conversion likely produced edema and mass effect with occipital dysfunction), or these may be seizures reflecting cortical irritability after stroke. Neurologic exam on admission: Mental Status Eyes open spont, regards, follows all commands, speech fluent, oriented x 3, naming 3/3, repetitionintact Cranial Nerves PERRL 3mm brisk, EOMI, left visual field cut, Face symmetric, mild dysarthria Motor 5/5 BUE and BLE, no drift Pertinent Work-up: CT Head without contrast: - OSH CT WO Contrast over-read: Interval development of hemorrhage within the previously noted right posterior cerebral artery territory infarct noted on MRI dated 07/29/2021. - CT Head WO Contrast 08/19/20: Evolving intraparenchymal hemorrhage within the right posterior cerebral artery territory infarct with unchanged localized mass effect. There is no midline shift. CTA Head/Neck: CTA Head/Neck W WO Contrast 08/19/20: 1. Evolving intraparenchymal hemorrhage within the right posterior cerebral artery territory infarct. 2. No evidence of aneurysm or vascular malformation. Oligemia ofthe P2 and P3 segments on the right secondary to hemorrhagic stroke best seen on image 20 series 11. 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 The current [place] Stroke Association guidelines recommend long-term treatment with a high-intensity statin even in patient's with LDL level <100, if tolerated. (The SPARCL trial, German et al. 2010, showed that statin treatment should not be titrated to LDL level.) The patient was on ASA 81 and Plavix 75 for a cardiac indication (recent 4V CABG). The patient's antiplatelet therapy was held on admission, and ASA 81 was restarted on admission to Neurology. The patient will be planned to discuss restarting Plavix 75 with his Cardiac Surgeon (to be seen 09/15/21),as he reports that this was started at the recommendation of his Cardiac Surgeon after his CABG. Given the possibility that the patient's hallucinations may have been seizures, the patient was started empirical on Keppra 1g BID. This will be managed in the outpatient setting by Neurology. The response of hallucinations to Keppra will provide further guidance regarding whether these are seizures or Aubrey-Bonnet syndrome. After the end-date (specified below), the patient should NOT be on dual- antiplatelet therapy. Accordingly her stroke regimen is summarized as the following: Medication Dosage Duration Clopidogrel (Plavix) 75 mg daily, held Pending discussion with CT surgery Aspirin 81 mg daily Indefinitely Atorvastatin (Lipitor) 40 mg daily Indefinitely Leviteracetam (Keppra) 1000 mg daily Indefinitely for the time being *Nikolas COLLADO et al. Comparison of warfarin and aspirin for symptomatic intracranial arterial stenosis. N. Engl. J. Med. 2005. 352:1305-16. Disposition: Per primary team evaluation, the patient was appropriate for discharge home Therapy referrals: None required Follow-up: The patient will follow-up in the outpatient [facility]. The contact information of the clinic is listed below: [address] [address] Other medical problems addressed during this hospitalization: # Visual hallucinations: As discussed above, the patient was reporting stereotyped hallucinations with fully formed people, generally lasting ~5 minutes. These had features of release hallucinations (fully-formed) and occipital seizures with intact awareness (stereotyped, recurrent, lasting brief periods). Routine EEG was unremarkable though a hallucination was not captured. The patient is planned for empiric Keppra and subsequent followup to determine response to therapy (patient will be seen in Stroke Neurology at [facility]) - Routine EE) right hemispheric slowing, maximal over the right temporoparietal region and 2) moderate generalized slowing - AEDs: Keppra 1g BID started in hospital, will be continued on discharge. Further determination ofduration of treatment will be based on response as assessed at Neuro stroke followup # Hx of HTN: The patient was managed with prn labetalol/hydral, and was planned for restarting medson discharge #CAD: The patient was s/p stents (2006 & 2009) s/p STEMI & 4V CABG 04/2021. The patient's DAPT was held on admission given hemorrhagic conversion, and ASA was restarted for stroke (given PH1). Plavix was held pending further conversation with patient's outpatient CT surgeon, as he reports that this was started at the recommendation of his Cardiac Surgeon after his CABG. We discussed the di scontinuation of Plavix with the patient's Cardiac Surgery team, and they are aware of the fact that he will be off, and do not feel that it is critical to start at this time. The patient can follow up in his CT surgery office - if the medication needs to be started urgently, it can be started at that time if the patient's neurologic exam is stable. Otherwise, recommend further discussion betweenthe patient's outpatient CT surgeon and new outpatient neurologist. #HFrEF: The patient had a repeat TTE which demonstrated LVEF 45% with apical aneurysm (no thrombus) # T2DM: The patient's home jardiance and lantus were held. The patient's BGs were managed with NPH 20 TID and SSI. A1c on admission 10.9 # Leukocytosis (resolving): Infectious workup negative, likely reactive # Vitamin D deficiency: The patient was started on cholecalciferol 400 units daily. This will be discontinued on discharge with plans for PCP to follow up on this # Hx of COPD: The patient was ordered for prn albuterol ETING LIAISON ETING LIAISON ETING LIAISON ETING LIAISON ETING LIAISON ETING LIAISON ETING LIAISON ETING LIAISON ETING LIAISON ETING LIAISON ETING LIAISON ETING LIAISON ETING LIAISON ETING LIAISON ETING LIAISON ETING LIAISON ETING LIAISON ETING LIAISON ETING LIAISON ETING LIAISON ETING LIAISON ETING LIAISON ETING LIAISON ETING LIAISON ETING LIAISON * Significant Event - Deirdre Patten, OPERATING SYSTEM PROGRAMMER - 08/20/2021 1:27 PM MARKETING LIAISON Neuro Critical Care Transfer to Stroke Neurology Note CC: Hemorrhagic conversion of R occipital stroke HPI: Deepak Alvarado is a 61 year old right-handed male with PMH COPD, HTN, HLD, DM, smoker (recently quit), CAD s/p [place] & CABG. He was admitted to [facility] 05/04/21-06/03/21 with STEMI s/p 4V CABG and additionally hospital course complicated by COVID pneumonia. He was admitted to the hospital again 07/28/2021-07/30/2021 with c/o left visual field loss and headache and found to have multifocal acute ischemic stroke. 07/29 MRI/MRA head showed no large vessel occulusion, small focal severe stenosis along the distal right MCA M1 segment, posterior right temporal and occipital lobe acute infarct in the distribution of the right SHIPYARD PAINTER and small acute right parietal infarct. ?? He presented to [facility] ED (08/19/2021) with complaints of hallucinations described as seeing people whoaren't there , he denies history of psychiatric illness. His states that he had been hallucinating for ~4 days and she said he had been talking to the hallucinations, punched a door and his behavior was escalating. 08/[address] demonstrated right occipital parietal infarction with new intraparen chymal hemorrhage. Significant lab values: INR 1.0, PTT 33, ETOH < 10, Na 132, glu 311. Vitals BP 123/94, HR 105, RR 18, sats 97% on RA. ?? He was transfused one unit platelets and transferred via ambulance to [facility] NNICU for further workup and management of hemorrhagic conversion of ischemic stroke. On arrival to the ICU BP 132/101, HR 89, sats 96% on RA. He denies recent falls, weakness, numbness, tingling, pain, incontinence. On exam he was mildly dysarthric with a left visual field cut, moving all extremities spontaneously and equally NNICU Course: Arrived to ICU 08/19, VS on arrival were BP 133/95 MAP 107, HR 102, RR 19, sats 96% on RA. Repeat HCT showed evolving intraparenchymal hemorrhage with right posterior cerebral artery territory infarct. Seen by NSGY, no plan for surgical intervention. Per NSGY CTA Head obtained which showed no evidence of aneurysm or vascular malformation, same evolving SHIPYARD PAINTER territory IPH. Required seroquel 25mg [id number] for restlessness and agitation. This morning, patient is fairly cooperative although inattentive, requiring some redirection. He seems to be having visual hallucinations this morning however had no insight into this. PHYSICAL EXAM: HEENT: Mucous membranes moist with some white film on tongue, very poor dentition. sclera anicteric Cardiac: S1, S2, + murmur, RRR, no R/G, no peripheral edema Pulmonary: Even, unlabored respirations. Symmetric chest rise and fall. Lungs clear to auscultationanterior escamilla, no wheezes. Abdomen: Non-distended and round in appearance, bowel sounds present, soft/non- tender to palpation. Skin: Warm and dry, color appropriate for ethnicity. 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 -- Carotid duplex (07/29) <49% stenosis bilateral ICA, vertebrals w/ bilateral antegrade flow. 3/2CTA with no significant stenosis. -- s/p 1 unit platelet transfusion at OSH (08/19) -- 08/19 UDS negative -- SMART c/s -- 07/30 +PFO on TTE -> pall filters on IV tubing -- 08/20 Bilateral LED negative for acute DVT -- NC q4hrs -- MAP < 110 -- hold home ASA/plavix -- continue atorvastatin # New onset visual hallucinations in setting of occipital stroke # Hyperactive delirium -- ?Aubrey Yin. No known prior psychiatric illness -- delirium precautions -- Start ramelteon 8mg nightly -- Continue seroquel 25mg PRN nightly -- Will obtain routine EEG # Hx of HTN -- MAP < 110 -- PRN labetalol and PRN hydralazine -- Restart home coreg 3.125mg BID # Hx of CAD s/p stents (2006 & 2009) s/p STEMI & 4V CABG 04/2021 -- chart history of plavix nonresponder and swithed to effient in 2009, however post CABG 04/2021 he was started on ASA/plavix -- holding DAPT in setting of hemorrhagic conversion -- admission EKG no acute ST changes, trop negative # Hx of HFrEF -- TTE (07/30) mild LVH, grade I diastolic dysfunction, EF 35-40%, significant apical akinesis in the LV mild AR, mild LAE, +PFO on saline contrast study -- obtain repeat TTE with contrast (r/o thrombus in setting of significant LV apical akinesis) -- restart home coreg as above # Hx of HLD -- continue statin # PFO -- pall filters to IV tubing # Hx of COPD # Prior tobacco use, quit 04/2021 -- O2 sats >88% -- IS, OOB -- PRN albuterol # Hyponatremia - resolved -- Na 132 on discharge (07/28) -- daily BMP -- DC NS given adequate PO intake # Hypokalemia, 3.5 -- repleted with KCL 40meq q4hrs x2 doses -- BMP in am # hx Hypovitaminosis D -- check vit D level -- repleted with cholecalciferol 400 units once overnight -- start cholecalciferol 400 units daily starting tomorrow # hx hematuria s/p??cystoscopy, clot evacuation and TURBT by urology on 05/14/21 at [facility] # Nutrition/Dysphagia -- passed bedside swallow exam -- continue carb consistent diet -- PLANS EXAMINER eval per protocol -- continue bowel regimen with senna/colace # Hx of DM -- Holding home jardiance -- A1c (07/29/2021) 10.5, repeat (08/19/21) 10.9 -- continue SSI (insulin resistant scale) AC/HS -- begin Lantus 10 units daily (home Lantus 60u daily) -- consider adding scheduled mealtime lispro # Hx of GERD -- continue home protonix 40mg daily # Leukocytosis wo fever -- admission UA and CXR negative for infectious process -- PanCx if temp > 38.5 -- PRN tylenol for fever # COVID-recovered -- hospitalized w/ COVID-19 in May 2021 s/p remdesivir & dexamethasone VTE Prophylaxis Last Venous Doppler: LED (08/20) negative for DVT Prophylaxis: SCDs, Restart SQH 5000 Q8H tonight CODE STATUS: Full Code Provider Sign out given to: Stroke Neurology oncall 08/20/2021 1553 Deirdre Patten NP ETING LIAISON * ECIN Note - Liliam Khan RN - 08/20/2021 10:49 AM CST Images from the original note were not included. Ronnie Pereira MD Resident Neurosurgery H&P ?? Cosign Needed Date of Service: 08/19/2021 ??8:42 PM Cosign Needed Neurosurgery History and Physical ?? Patient: Deepak Alvarado CSN: [id number] : 1960 Admission date: 08/19/2021 Admitting attending: Dr. Christine ?? Chief complaint: Hemorrhagic conversion of ischemic stroke ?? History of present illness: Deepak Alvarado is a 61 y.o. R-handed male with PMH of COPD, hypertension, diabetes, tobacco use, CADs/p [place] and CABG who presents with hemorrhagic conversion of a prior SHIPYARD PAINTER ischemic stroke. Patient was initially admitted to an outside hospital on 07/28/2021 with complaints of left visual deficits and headache and was found to have ischemic infarction of the right SHIPYARD PAINTER. He left the hospital AMA at that time but ultimately did receive a full stroke workup. He presented to the OSH on 08/19 with visual hallucinations. He describes these as seeing people who are not actually present in the room. Head CT demonstrated his prior right occipital infarction, now with new hemorrhagic conversion. He was t ransferred to [facility] for further management. Denies headache, difficulty speaking, weakness, numbness/tingling, difficulty with ambulation, N/V, or recent falls. He has no history of psychiatric illness. He is on aspirin and Plavix for his history of CABG. ?? Review of systems: A full review of systems was completed and was negative unless otherwise stated in the HPI. ?? Past medical/surgical history: 1. CAD s/p [place] and CABG (STEMI with 4 vessel CABG in April 2021) 2. COPD 3. HTN 4. HLD 5. DM2 6. Tobacco use ?? Allergies: Allergies Allergen Reactions ? ? Metformin Nausea & Vomiting ??? Metoclopramide ? Medications: HOME MEDICATIONS : albuterol HFA (PROVENTIL HFA,VENTOLIN HFA,PROAIR HFA) 90 mcg/actuation inhaler aspirin 81 mg enteric coated tablet atorvastatin (LIPITOR) 40 mg tablet carvediloL (COREG) 3.125 mg tablet clopidogreL (PLAVIX) 75 mg tablet empagliflozin (JARDIANCE) 10 mg tablet insulin glargine (LANTUS, SEMGLEE) 100 unit/mL vial for injection pantoprazole DR (PROTONIX) 40 mg EC tablet traMADoL (ULTRAM) 50 mg tablet ? Social history: He has a 40 pack year smoking history. He denies alcohol use or drug use. He is retired. He lives with his Geno who may be reached at [phone]. ?? Family history: Reviewed and noncontributory. ?? Physical Examination: Neuro: Opens??eyes spontaneously, regards, follows commands, sustains attention. A+Ox3. Answers questions appropriately, speech fluent, conversant. Naming/repetition intact. Left homonymous hemianopsia PERRL 3-->2, EOMI, FS, TML 5/5 strength in BUE and BLE No pronator drift Negative Wei's, no clonus, negative Babinski Sensation intact to??light touch??symmetrically in BUE and BLE? Psych: No current visual hallucinations Constitutional: well developed HENT: normocephalic Cardiovascular: normal rate Pulmonary: normal respiratory effort Abdominal: non-tender Musculoskeletal: no deformity ?? Imaging and Labs: Head CT dated 08/19/2021 demonstrates hemorrhage within areas of hypodensity corresponding to the patient's prior right occipital stroke. There is slight mass effect upon the posterior aspect of the right occipital horn. There is no midline shift. ?? Assessment and Plan: 61 y/o male on ASA and Plavix with history of prior R occipital stroke presents with new visual hallucinations. On admission to [facility], he is not having hallucinations but does have a L homonymous hemianopsia. His head CT demonstrates hemorrhagic conversion of his prior R occipital ischemic infarction. He did not receive a CTA at the OSH, so we will obtain one now. We will also plan to hold his ASA and Plavix. No acute neurosurgical intervention is needed at this time. He is admitted to the NNICU. ?? 1. BMP, CBC, PT, PTT, UA macro-micro, CXR, EKG, T&S, COVID 2. CTA 3. Hold ASA/Plavix 4. Stroke Neurology c/s ?? This plan has been discussed with the chief resident and attending bacon skin lifter. ? Ronnie Pereira MD Resident Physician, PGY-1 Department of Neurosurgery ? ETING LIAISON * ECIN Note - Liliam Khan RN - 08/20/2021 10:48 AM CST Images from the original note were not included. Antonio Fisher NP Nurse Practitioner Neuro Critical Care H&P ?? Cosign Needed Date of Service: 08/19/2021 ??4:00 PM Cosign Needed Expand All Collapse All[]Expand All by Default Neuro Critical Care Admission H&P ?? CC: Hemorrhagic conversion of R occipital stroke ?? HPI: Deepak Alvarado is a 61 year old right-handed male with PMH COPD, HTN, HLD, DM, smoker (recently quit), CAD s/p [place] & CABG. He was recently admitted to [facility] 05/04/21-06/03/21 with STEMI s/p 4V CABG and additionally hospital course complicated by COVID pneumonia. He was admitted [facility] again 07/28/2021-07/30/2021 with c/o left visual field loss and headache and found to have multifocal acute ischemic stroke, however he left AMA and returned for completion of stroke workupand was ultimately discharged home. ?? He presented to [facility] ED today (08/19/2021) with complaints of hallucinations described as seeing people who aren't there , he denies history of psychiatric illness. His states that he had been hallucinating for ~4 days and she said he had been talking to the hallucinations, punched a door and his behavior was escalating. Head CT demonstrated right occipital parietal infarction with new intraparenchymal hemorrhage. Significant lab values: INR 1.0, PTT 33, ETOH < 10, Na 132, glu 311. VitalsBP 123/94, HR 105, RR 18, sats 97% on RA. ?? He was transfused one unit platelets and transferred via ambulance to [facility] NNICU for further workup and management of hemorrhagic conversion of ischemic stroke. On arrival to the ICU BP 132/101, HR 89, sats 96% on RA. He denies recent falls, weakness, numbness, tingling, pain, incontinence. On exam he was mildly dysarthric with a left visual field cut, moving all extremities spontaneously and equally. ?? Medical History Past Medical History: Diagnosis Date ??? Chronic obstructive pulmonary disease (CMS/HCC) (HCC) ? COPD ??? Coronary artery disease ? DM type 2 (diabetes mellitus, type 2) (HCC) ? HLD (hyperlipidemia) ? Hypertension ? Hypertension ??? ST elevation (STEMI) myocardial infarction (HCC) 05/01/2021 ??? Tobacco abuse, in remission ? In remission since 04/2021 ?? Surgical History Past Surgical History: Procedure Laterality Date ??? CARDIAC STENT PLACEMENT ? CORONARY ARTERY BYPASS GRAFT ?? 05/2021 ?? Four-vessel [facility] ?? Social History ?? Tobacco Use ??? Smoking status: Former Smoker ? Packs/day: 1.00 ? Years: 40.00 ? Pack years: 40.00 ? Types: Cigarettes ??? Smokeless tobacco: Never Used ??? Tobacco comment: Stop smoking 04/2021 after [place] Substance Use Topics ??? Alcohol use: No ?? Lives at home with and 2 sons, former smoker, quit 04/2021, denies ETOH, denies illicits, no longer working. ?? Family History Problem Relation Age of Onset ??? COPD Father ? Allergies Allergen Reactions ? ? Metformin Nausea & Vomiting ??? Metoclopramide ? Prescriptions Prior to Admission Medications Prior to Admission Medication Sig Dispense Refill Last Dose ??? albuterol HFA (PROVENTIL HFA,VENTOLIN HFA,PROAIR HFA) 90 mcg/actuation inhaler Inhale 2 puffs every 6 (six) hours as needed for wheezing or shortness of breath ? aspirin 81 mg enteric coated tablet Take 1 tablet (81 mg total) by mouth daily 30 tablet 11 ? atorvastatin (LIPITOR) 40 mg tablet Take 1 tablet (40 mg total) by mouth daily 30 tablet 0 ? carvediloL (COREG) 3.125 mg tablet Take 1 tablet (3.125 mg total) by mouth 2 (two) times a day with meals 60 tablet 3 ? clopidogreL (PLAVIX) 75 mg tablet Take 1 tablet (75 mg total) by mouth daily 30 tablet 3 ? empagliflozin (JARDIANCE) 10 mg tablet Take 10 mg by mouth daily ? insulin glargine (LANTUS, SEMGLEE) 100 unit/mL vial for injection Inject 60 Units under the skin nightly ? pantoprazole DR (PROTONIX) 40 mg EC tablet Take 40 mg by mouth daily ? Review of Systems: All other systems negative except as indicated in HPI. ?? Vitals 24hr min/max vitals: Temp Min: 36.6 ??C (97.9 ??F) Max: 36.6 ??C (97.9 ??F) Pulse Min: 90 Max: 102 NIBP BP Min: 133/95 Max: 146/82 MAP (mmHg) Av Min: 97 Max: 107 A-line No data recorded ?? I/O: No intake or output data in the 24 hours ending 08/19/21 1754 LABS Recent Labs Lab Units 08/19/21 1642 SODIUM mmol/L 134* POTASSIUM PLASMA mmol/L 4.0 CHLORIDE mmol/L 99 CO2 mmol/L 24 ANIONGAP mmol/L 11 GLUCOSE mg/dL 185 BUN SERUM mg/dL 9 CREATININE mg/dL 0.77* CALCIUM mg/dL 9.8 MAGNESIUM mg/dL 1.9 PHOSPHORUS PLASMA mg/dL 3.9 Recent Labs Lab Units 08/19/21 1642 WBC K/cumm 12.0* HEMATOCRIT % 39.0 HEMOGLOBIN g/dL 12.8* PLATELETS K/cumm 398 APTT sec 29 INR ?? 1.1 ?? Recent Labs Lab Units 08/19/21 1642 ALK PHOS Units/L 111 BILIRUBIN TOTAL mg/dL 0.5 TOTAL PROTEIN g/dL 8.2 ALBUMIN g/dL 4.9 ALT Units/L 19 AST Units/L 17 IMAGING (Most recent) NEURO IMAGING: Noncontrast HCT at OSH 08/19 IMPRESSION: 1. Interval development of hemorrhage within the previously noted right posterior cerebral artery territory infarct noted on MRI dated07/29/2021. ?? PHYSICAL EXAM: HEENT: Mucous membranes dry with white film on tongue, poor dentition. sclera anicteric Cardiac: RRR, no M/R/G. Pulmonary: Even, unlabored respirations. Symmetric chest rise and fall. Lungs clear to auscultationanterior escamilla, no wheezes. Abdomen: Non-distended and round in appearance, bowel sounds present, soft/non- tender to palpation. Skin: Warm and dry, color appropriate for ethnicity. ?? NEURO EXAM Mental Status Eyes open spont, regards, follows all commands, speech fluent, oriented x 3, naming 3/3, repetitionintact Cranial Nerves PERRL 3mm brisk, EOMI, left visual field cut, Face symmetric, mild dysarthria Motor 5/5 BUE and BLE, no drift ?? NEUROLOGICAL Meds: ?? Atorvastatin 40mg nightly ?? PRN tylenol ?? # Hemorrhagic conversion of R occipital ischemic stroke -- MRI/MRA (07/29) w/ posterior R temporal and occipital AIS in R SHIPYARD PAINTER distribution, small R parietal AIS, R thalamus/left pontine chronic infarcts, mild microvascular ischemic white matter changes, ??Small focal severe stenosis along the distal right MCA M1 segment. -- Carotid duplex (07/29) <49% stenosis bilateral ICA, vertebrals w/ bilateral antegrade flow -- s/p 1 unit platelet transfusion at OSH (08/19) -- follow up UDS -- SMART c/s -- +PFO on TTE -> pall filters on IV tubing -- admission HCT pending -- check LED -- neuro checks q1h -- MAP < 110 -- repeat HCT for exam changes -- hold home ASA/plavix -- cont atorva ?? # Hallucinations in setting of occipital stroke, described as seeing people who aren't there -- denies psychiatric illness -- delirium precuations ?? CARDIOVASCULAR and HEME Meds: ?? PRN labetalol ?? PRN hydralazine ?? Atorvastatin 40mg nightly ?? EK/2 NSR ?? # HTN -- MAP < 110 -- PRN labetalol and PRN hydralazine -- hold home coreg 3.125mg BID ?? # CAD s/p stents (2006 & 2009) s/p STEMI & 4V CABG 04/2021 -- holding DAPT in setting of hemorrhagic conversion -- chart history of plavix nonresponder and swithed to effient in 2009 -- holding coreg -- admission EKG ?? # HFrEF -- TTE (07/30) mild LVH, grade I diastolic dysfunction, EF 35-40%, significant apical akinesis in the LV mild AR, mild LAE, +PFO on saline contrast study -- repeat TTE r/o thrombus in setting of significant LV apical akinesis -- holding BB ?? # HLD -- cont statin ?? # PFO -- pall filters to IV tubing ?? PULMONARY Resp Min: 16 Max: 19 SpO2 Min: 96 % Max: 97 % Room Air CXR: 08/19 pending Secretions: none ?? Meds: ?? PRN albuterol ?? # COPD # Prior tobacco use, quit 04/2021 -- O2 sats >88% -- IS, OOB -- PRN albuterol -- f/up admission CXR ?? RENAL Meds: ?? n/a ?? # Hyponatremia -- Na 132 on discharge (07/28) -- daily BMP -- NS 75 ?? # Hypomagnesemia -- repleted with 2g -- check AM mag ?? # hx Hypovitaminosis D -- check vit D level ?? # hx hematuria s/p??cystoscopy, clot evacuation and TURBT by urology on 05/14/21 at [facility] ?? GI and ENDO Meds: ?? Senna BID ?? Colace BID ?? Protonix daily ?? Diet: NPO Diet IV fluids: NS @ mL/hr Flushes: n/a Last BM: LEAD GENERATOR ?? # Nutrition/Dysphagia -- PLANS EXAMINER -- diabetic diet vs NGT ?? # DM -- holding home lantus and jardiance -- A1c (07/29/2021) 10.5, repeat on admission -- accuchecks/SSI q4h ?? # Contipation ppx -- senna/colace ?? # GERD -- protonix daily ?? INFECTION RELEVANT/MOST RECENT MICRO LAB DATA: Blood cultures: n/a Respiratory cultures: n/a Urinalysis/Urine culture: 08/19 pending ?? Meds: ?? n/a ?? # Leukocytosis, WBC 12, afebrile -- f/up admission UA -- PanCx T > 38.5 -- PRN tylenol for fever ?? # COVID-recovered -- hospitalized w/ COVID-19 in May 2021 s/p remdesivir & dexamethasone ACCESS Lines ?? PIV Osorio ?? n/a ?? VTE Prophylaxis Last Venous Doppler: LED (06/01/2021) neg. Repeat LED Prophylaxis: SCDs, holding SQH in setting of hemorrhage ?? CODE STATUS: Full Code Disposition: NNICU ?? Antonioese Fisher, OPERATING SYSTEM PROGRAMMER ?? ETING LIAISON * Plan of Neelima - Jeffrey Taylor RN - 08/20/2021 10:14 AM CST Goals: Problem: Health Behavior: Goal: Understanding of discharge needs will improve Outcome: Progressing Problem: Lack of Knowledge: Goal: Ability to state ways to decrease the risk of falls will improve Outcome: Progressing Problem: Safety: Goal: Will remain free from falls Outcome: Progressing Goal: Will remain free from injury from falls Outcome: Progressing Goal: Will remain free from falls and injury in home environment Outcome: Progressing Problem: Lack of Knowledge: Goal: Expressions of a comfortable level of knowledge will increase Outcome: Progressing Goal: Knowledge of the prescribed therapeutic regimen will improve Outcome: Progressing Problem: Health Behavior: Goal: Ability to make informed decisions regarding treatment will improve Outcome: Progressing Goal: Identification of resources available to assist in meeting health care needs will improve Outcome: Progressing Clinical Goals for the Shift: Vitals, neuro checks , BP control and ambulate up ETING LIAISON * Plan of Care - Kathrin Carrion RN - 08/19/2021 8:21 PM CST Goals: Problem: Health Behavior: Goal: Understanding of discharge needs will improve Outcome: Progressing Problem: Lack of Knowledge: Goal: Ability to state ways to decrease the risk of falls will improve Outcome: Progressing Problem: Safety: Goal: Will remain free from falls Outcome: Progressing Goal: Will remain free from injury from falls Outcome: Progressing Goal: Will remain free from falls and injury in home environment Outcome: Progressing ETING LIAISON * Plan of Care - Erica Feldman - 08/19/2021 4:30 PM CST Goals: Summary: Problem: Safety: Goal: Will remain free from falls Outcome: Progressing Goal: Will remain free from injury from falls Outcome: Progressing Problem: Health Behavior: Goal: Understanding of discharge needs will improve Outcome: Not Progressing Problem: Lack of Knowledge: Goal: Ability to state ways to decrease the risk of falls will improve Outcome: Not Progressing Problem: Safety: Goal: Will remain free from falls and injury in home environment Outcome: Not Progressing ETING LIAISON documented in this encounter Plan of Treatment Not on file documented as of this encounter Procedures Procedure Name Priority Date/Time Associated Diagnosis Comments EVENT MONITOR Routine 08/21/2021 11:45 AM MARKETING LIAISON POCT GLUCOSE DEVICE Routine 08/21/2021 1 1:16 AM MARKETING LIAISON TRANSTHORACIC ECHO (TTE) COMPLETE W DOPPLER/CF W CONTRAST Routine 08/21/2021 8:40 AM MARKETING LIAISON POCT GLUCOSE DEVICE Routine 08/21/2021 8 :33 AM MARKETING LIAISON EGFR Routine 08/20/2021 8:51 PM MARKETING LIAISON CBC WITHOUT DIFFERENTIAL Routine 08/20/2021 8:51 PM MARKETING LIAISON BASIC METABOLIC PANEL Routine 08/20/2021 8:51 PM MARKETING LIAISON POCT GLUCOSE DEVICE Routine 08/20/2021 7 :55 PM MARKETING LIAISON POCT GLUCOSE DEVICE Routine 08/20/2021 6 :10 PM MARKETING LIAISON EEG Routine 08/20/2021 3:08 PM MARKETING LIAISON US VEIN DUPLEX LOWER EXTREMITY BILATERAL COMPLETE IP Routine 08/20/2021 11:43 AM MARKETING LIAISON POCT GLUCOSE DEVICE Routine 08/20/2021 1 1:01 AM MARKETING LIAISON POCT GLUCOSE DEVICE Routine 08/20/2021 7 :24 AM MARKETING LIAISON POCT GLUCOSE DEVICE Routine 08/20/2021 4 :07 AM MARKETING LIAISON POCT GLUCOSE DEVICE Routine 08/19/2021 1 1:39 PM MARKETING LIAISON CTA HEAD NECK W WO CONTRAST ED Urgent/IP Urgent 08/19/2021 9:18 PM MARKETING LIAISON EGFR Routine 08/19/2021 7:36 PM MARKETING LIAISON VITAMIN D 25 HYDROXY Routine 08/19/2021 7:36 PM MARKETING LIAISON CBC WITHOUT DIFFERENTIAL Routine 08/19/2021 7:36 PM MARKETING LIAISON MAGNESIUM Routine 08/19/2021 7:36 PM MARKETING LIAISON BASIC METABOLIC PANEL Routine 08/19/2021 7:36 PM MARKETING LIAISON POCT GLUCOSE DEVICE Routine 08/19/2021 7 :[address] HEAD WO CONTRAST Timed 08/19/2021 6 :40 PM MARKETING LIAISON XR CHEST 1 VIEW ED Urgent/IP Urgent 08/19/2021 6:10 PM MARKETING LIAISON DRUGS OF ABUSE SCREEN, URINE WITH REFLEX CONFIRMATION Routine 08/19/2021 6:09 PM MARKETING LIAISON B CHECK SAMPLE STAT 08/19/2021 6:09 PM MARKETING LIAISON TROPONIN I HIGH-SENSITIVITY SERIES (BASELINE, 2HR, 4HR, 6HR) Routine 08/19/2021 5:03 PM MARKETING LIAISON URINALYSIS AND REFLEX TO MICROSCOPIC AND CULTURE Routine 08/19/2021 5:03 PM MARKETING LIAISON TYPE AND SCREEN Timed 08/19/2021 5:03 PM MARKETING LIAISON EGFR STAT 08/19/2021 4:42 PM MARKETING LIAISON APTT STAT 08/19/2021 4:42 PM MARKETING LIAISON PROTIME-INR STAT 08/19/2021 4:42 PM MARKETING LIAISON CBC WITHOUT DIFFERENTIAL STAT 08/19/2021 4:42 PM MARKETING LIAISON PHOSPHORUS STAT 08/19/2021 4:42 PM MARKETING LIAISON MAGNESIUM STAT 08/19/2021 4:42 PM MARKETING LIAISON HEMOGLOBIN A1C STAT 08/19/2021 4:42 PM MARKETING LIAISON ETHANOL STAT 08/19/2021 4:42 PM MARKETING LIAISON COMPREHENSIVE METABOLIC PANEL STAT 08/19/2021 4:42 PM [address]ETING LIAISON NEURO [address] MR OUTSIDE CONSULT Routine 08/19/2021 4:28 PM MARKETING LIAISON Diagnosis unknown POCT GLUCOSE DEVICE Routine 08/19/2021 4 :01 PM MARKETING LIAISON documented in this encounter Results * Event Monitor, 30 Day Event (08/21/2021 11:45 AM MARKETING LIAISON) Anatomical Region Laterality Modality Electrocardiogra phy 08/21/2021 9:20 AM MARKETING LIAISON Narrative 10/30/2021 10:37 AM CDT Patient name: Deepak Alvarado Date of test: 08/21/2021 Type of Test: [place] [place] [facility] #: [id number] ?Location: [facility] : 1960 ??Age: 61 ??Sex: M Ref Physician(s): ANNMARIE PITTMAN MD Interpreted by: Yariel Arriaza MD [facility] Er-Up Tech: Elena Mayer Diagnosis: Monitoring Service: [employer] Reason for Test: R00.2: Palpitations Monitor Used: Body Guardian Heart (MCT) ??[id number] Enrollment Period: Aug 21 - Sep 19, 2021 Building [employer] comments: Patient Instructions: Understood directions and use of equipment. Number of Transmissions Sent During Enrollment Period: 1 To obtain transmission tracing contact: Rhythm Summary: Mean heart rate: 95 Pauses >= 3 seconds: 0 Tachycardia avg rate: 106 Tachycardia longest duration: 00:26:13 Tachycardia longest episode: 08/22/2021 04:54:00 Tachycardia shortest duration: 00:00:04 Tachycardia shortest episode: 08/23/2021 23:59:00 Cardiologis Review of Transmissions: I have reviewed the findings on the individual tracings for the dates noted below and I agree., The full scanned/data report is available in [employer]. labeled MONITOR STRIPS PDF . This study was interpreted by Yariel Arriaza MD Confirmed on ??10/30/2021 - 10:37:36 by Yariel Arriaza MD Summary of Transmitted Events: # ??Date ? Time ?HR ?Symptoms/Rhythm ? 1 ??08/23/21 18:04 ?? 104.6 ?? None Reported ? Sinus Tachycardia w/Artifact/Lead Loss ? I have personally reviewed and interpreted this study. Procedure Note Yariel Arriaza Jr., MD PhD - 10/30/2021 Patient name: Deepak Alvarado Date of test: 08/21/2021 Type of Test: Event Monitor ([facility] [place] [facility] #: [id number] Location: [facility] : 1960 Age: 61 Sex: M Ref Physician(s): ANNMARIE PITTMAN MD Interpreted by: Yariel Arriaza MD [employer]: Elena Mayer Diagnosis: Monitoring Service: [employer] Reason for Test: R00.2: Palpitations Monitor Used: Body Guardian Heart (MCT) [id number] Enrollment Period: Aug 21 - Sep 19, 2021 Hook-Up Tech comments: Patient Instructions: Understood directions and use of equipment. Number of Transmissions Sent During Enrollment Period: 1 To obtain transmission tracing contact: Rhythm Summary: Mean heart rate: 95 Pauses >= 3 seconds: 0 Tachycardia avg rate: 106 Tachycardia longest duration: 00:26:13 Tachycardia longest episode: 08/22/2021 04:54:00 Tachycardia shortest duration: 00:00:04 Tachycardia shortest episode: 08/23/2021 23:59:00 Cardiologis Review of Transmissions: I have reviewed the findings on the individual tracings for the dates noted below and I agree., The full scanned/data report is available in [employer]. labeled MONITOR STRIPS PDF . This study was interpreted by Yariel Arriaza MD Confirmed on 10/30/2021 - 10:37:36 by Yariel Arriaza MD Summary of Transmitted Events: # Date Time HR Symptoms/Rhythm 1 08/23/21 18:04 104.6 None Reported Sinus Tachycardia w/Artifact/Lead Loss I have personally reviewed and interpreted this study. Annmarie Pittman MD CV CARDIAC SERVICES PROCED URES Final Result * (ABNORMAL) POCT glucose (08/21/2021 11:16 AM MARKETING LIAISON) Glucose, POC 210(H) 70 - 199 mg/dL [facility] Blood 08/21/2021 11:1 6 AM MARKETING LIAISON 08/21/2021 11:16 AM MARKETING LIAISON Annmarie Pittman MD LAB POCT ORDERABLES - DAVID CE Final Result [facility] [place] [address] * TRANSTHORACIC ECHO (TTE) COMPLETE W DOPPLER/CF W CONTRAST (08/21/2021 8:40 AM MARKETING LIAISON) Anatomical Region Laterality Modality Ultrasound 08/21/2021 6:55 AM MARKETING LIAISON Narrative 08/21/2021 10:59 AM MARKETING LIAISON Patient name: Deepak Alvarado Date of test: 08/21/2021 Type of test: TTE w/Doppler [facility] #: [id number] Date of : 1960 (M) Secondary Spanish Teacher: Shereen Truong RDCS Referring Physician: ANNMARIE PITTMAN MD Contrast Agent: 0.8 ml Optison Administered, (2.2 ml wasted). Contrast Administered by: Floor RN Supervised/Interpreted by: Quoc Scruggs MD Diagnosis: Location: [facility] Reason for test: Acute ischemic stroke ? MV Structure: mildly thickened, ?MV Motion: Normal, ?? Mitral Annulus: Normal AV Structure: tricuspid and is Normal, ?? AV Motion: Normal Aotic root: Normal, ?TM: Normal, ?? PV: Normal Valvular Vegetations: none seen, ?Mass/Thrombi: none seen RA: Normal Measurements: ?M-Mode ?Normal ? Aotic Root: ? <3.8 ? LA: ? <4.0 ? RV: ? <2.8 ? LV(ED): ? <5.7 ? LV(ES): ? Variable ?2D Linear Normal ? Aotic Root: 3.7 cm ?<4.0 ? Ao Indexed: 1.8 cm/M2 <2.0 ? LA: ? <4.0 ? RV: ? 3.9 cm ?<4.2 ? LV(ED): ? 4.0 cm ?<5.9 ? LV(ES): ? 3.2 cm ?<4.0 ?2D Vol. ?? Normal ?Indexed ?? Indexed Normal RA: ? 38.0 ml ? 18.7 ml/M2 ?11-39 ? LA: ? 52.0 ml ? 25.5 ml/M2 ?16-34 ? RV: ? <12.7 ? LV(ED): ? 130.0 ml ??62-150 ?63.9 ml/M2 ?<75 ? LV(ES): ? 71.0 ml ?? 21-61 ? 34.9 ml/M2 ?<32 ?3D Vol. ? Indexed Normal LV(ED): ?<75 ? LV(ES): ?<32 ? LV EF: 45 % ?? (Normal: >=52%) ?? LV Septum: 1.3 cm ?(Normal: <1.0 cm) Wall Motion Scoring (1=Normal 2=Hypo 3=Akinetic 4=Dyskin./Aneurysm 0=Not visualized) Parasternal [place]:MAS=2 BAS=2 MIL=2 SAM=2 Parasternal [place]:MAS=2 MIS=2 [place]=2 MIL=2 MAL=2 MA=2 Apical 4 Chambers:=2 MIS=2 BIS=2 BAL=2 MAL=2 AL=2 AC=2 Apical 2 Chambers:AI=2 [place]=2 BI=2 BA=2 MA=2 AA=2 AC=2 LV Global Longitudinal Strain: -11% ??(Normal <-17%) RV Global Longitudinal Strain: -13.6% ??(Normal <-17%) LV Function: Mild Global reduction in LV Ejection Fraction (EF= 41-51%) RV Function: Normal Septal Motion: HYPOKINETIC Pericardial Effusion: none seen Atrial Septum: atrial septal aneurysm DOPPLER/COLOR FLOW DOPPLER RESULTS: Diastolic Function: Grade I, altered relax. w/N. LA pres. Tricuspid Valve: normal TV Pulmonic Valve: normal PV AV Regurgitation: No AR seen AV Stenosis: no AV Area: ??cm2 AV Pressure Gradient (mmHg): Mean: 0, Peak:0 MV Regurgitation: No MR seen MV Stenosis: ??no MS MV Area: ??cm2 MV Pressure Gradient (mmHg): Mean: 0 MV ERO: ??cm Regurg. Vol.: ??ml/beat Regurg. Frac.: ??% PA Pressure: ??mmHg DOPPLER/COLOR FOLOW DOPPLER COMMENTS: No AR seen, No MR seen, no , ??no MS, normal TV, normal PV. Diastolic function: Grade I, altered relax. w/N. LA pres. CONTRAST: 0.8 ml Optison Administered, (2.2 ml wasted). SUMMARY: LV is mildly dilated with mild moderately reduced systolic function. EF 45%. There are WMA as specified. 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 No LV thrombus seen. However, there is low flow at LV apex. RV is normal in size and function. Reduced global LV myocardial longitudinal function and strain pattern. Atrial septum is aneurysmal. No PFO/ASD by color Doppler. ??LA is normal. Concentric LV remodeling. Normal Inferior vena cava. Normal aorta. No comparison study. May consider bubble study. Confirmed on ??08/21/2021 - 10:59:35 by Quoc Scruggs MD By signing this report, the attending application manager certifies that he or she has personally supervised and interpreted the echocardiogram and has reviewed and or edited and agrees with the written comments contained within the report. Procedure Note Quoc Tomas MD - 08/21/2021 Patient name: Deepak Alvarado Date of test: 08/21/2021 Type of test: TTE w/Doppler [facility] #: [id number] Date of : 1960 (M) Secondary Spanish Teacher: Shereen Truong RDCS Referring Physician: ANNMARIE PITTMAN MD Contrast Agent: 0.8 ml Optison Administered, (2.2 ml wasted). Contrast Administered by: Tyesha POE Supervised/Interpreted by: Quoc Scruggs MD Diagnosis: Location: [facility] Reason for test: Acute ischemic stroke MV Structure: mildly thickened, MV Motion: Normal, Mitral Annulus: Normal AV Structure: tricuspid and is Normal, AV Motion: Normal Aotic root: Normal, TM: Normal, PV: Normal Valvular Vegetations: none seen, Mass/Thrombi: none seen RA: Normal Measurements: M-Mode Normal Aotic Root: <3.8 LA: <4.0 RV: <2.8 LV(ED): <5.7 LV(ES): Variable 2D Linear Normal Aotic Root: 3.7 cm <4.0 Ao Indexed: 1.8 cm/M2 <2.0 LA: <4.0 RV: 3.9 cm <4.2 LV(ED): 4.0 cm <5.9 LV(ES): 3.2 cm <4.0 2D Vol. Normal Indexed Indexed Normal RA: 38.0 ml 18.7 ml/M2 11-39 LA: 52.0 ml 25.5 ml/M2 16-34 RV: <12.7 LV(ED): 130.0 ml 62-150 63.9 ml/M2 <75 LV(ES): 71.0 ml 21-61 34.9 ml/M2 <32 3D Vol. Indexed Normal LV(ED): <75 LV(ES): <32 LV EF: 45 % (Normal: >=52%) LV Septum: 1.3 cm (Normal: <1.0 cm) Wall Motion Scoring (1=Normal 2=Hypo 3=Akinetic 4=Dyskin./Aneurysm 0=Not visualized) Parasternal [place]:MAS=2 BAS=2 MIL=2 SAM=2 Parasternal [place]:MAS=2 MIS=2 [place]=2 MIL=2 MAL=2 MA=2 Apical 4 Chambers:=2 MIS=2 BIS=2 BAL=2 MAL=2 AL=2 AC=2 Apical 2 Chambers:AI=2 [place]=2 BI=2 BA=2 MA=2 AA=2 AC=2 LV Global Longitudinal Strain: -11% (Normal <-17%) RV Global Longitudinal Strain: -13.6% (Normal <-17%) LV Function: Mild Global reduction in LV Ejection Fraction (EF= 41-51%) RV Function: Normal Septal Motion: HYPOKINETIC Pericardial Effusion: none seen Atrial Septum: atrial septal aneurysm DOPPLER/COLOR FLOW DOPPLER RESULTS: Diastolic Function: Grade I, altered relax. w/N. LA pres. Tricuspid Valve: normal TV Pulmonic Valve: normal PV AV Regurgitation: No AR seen AV Stenosis: no AV Area: cm2 AV Pressure Gradient (mmHg): Mean: 0, Peak:0 MV Regurgitation: No MR seen MV Stenosis: no MS MV Area: cm2 MV Pressure Gradient (mmHg): Mean: 0 MV ERO: cm Regurg. Vol.: ml/beat Regurg. Frac.: % PA Pressure: mmHg DOPPLER/COLOR FOLOW DOPPLER COMMENTS: No AR seen, No MR seen, no , no MS, normal TV, normal PV. Diastolic function: Grade I, altered relax. w/N. LA pres. CONTRAST: 0.8 ml Optison Administered, (2.2 ml wasted). SUMMARY: LV is mildly dilated with mild moderately reduced systolic function. EF 45%. There are WMA as specified. 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 No LV thrombus seen. However, there is low flow at LV apex. RV is normal in size and function. Reduced global LV myocardial longitudinal function and strain pattern. Atrial septum is aneurysmal. No PFO/ASD by color Doppler. LA is normal. Concentric LV remodeling. Normal Inferior vena cava. Normal aorta. No comparison study. May consider bubble study. Confirmed on 08/21/2021 - 10:59:35 by Quoc Scruggs MD By signing this report, the attending application manager certifies that he or she has personally supervised and interpreted the echocardiogram and has reviewed and or edited and agrees with the written comments contained within the report. Leigh Ann Milner OPERATING SYSTEM PROGRAMMER CV ECHO PROCEDURES Final Result * POCT glucose (08/21/2021 8:33 AM MARKETING LIAISON) Pathologist [facility] Glucose, POC 184 70 - 199 mg/dL [facility] Blood 08/21/2021 8:33 AM MARKETING LIAISON 08/21/2021 8:33 AM MARKETING LIAISON Annmarie Pittman MD LAB POCT ORDERABLES - DAVID CE Final Result Performing Organization Address City/State/[facility] Co de Phone Number [facility] Department [place] [address] * eGFR (08/20/2021 8:51 PM MARKETING LIAISON) eGFR >90 90 - 130 mL/min/1. 73 m2 [facility] Comment: Interpretive Data Reference Interval Normal ?>/= 90 mL/min/1.73m2 Mildly decreased* ? 60 - 89 mL/min/1.73m2 Mildly to moderately decreased ?45 - 59 mL/min/1.73m2 Moderately to severely decreased ??30 - 44 mL/min/1.73m2 Severely decreased ?15 - 29 mL/min/1.73m2 Kidney Failure ?< 15 ??mL/min/1.73m2 *Relative to young adult level Estimated glomerular filtration rate is determined by the 2020 CKD-EPI equation recommended by the National Kidney Foundation (A Unifying Approach to GFR Estimation: Recommendations of the NKF-ASK Task Force on Reassessing the Inclusion of Race in Diagnosing Kidney Disease, JASN 2020). The CKD-EPI equation should not be used for patients with unstable renal function and has not been validated in children and those over 70. Current interpretive data was last reviewed 2021. Blood 08/20/2021 8:51 PM MARKETING LIAISON 08/20/2021 9:36 PM MARKETING LIAISON us Alma Machado OPERATING SYSTEM PROGRAMMER LAB BLOOD ORDERABLES Fin al Result [facility] Department [place] [address] * Basic metabolic panel (08/20/2021 8:51 PM MARKETING LIAISON) Pathologist [facility] Sodium 135 135 - 145 mmol/L [facility] Potassium, pl 4.4 3.3 - 4.9 mmol/L [facility] Comment:Hemolyzed; Potassium value may be falsely elevated by as much as 0.3-0.5 mmol/L. Suggest redraw and reanalysis. Chloride 102 97 - 110 mmol/L [facility] CO2 26 22 - 32 mmol/L [facility] Anion gap 7 2 - 15 mmol/L [facility] BUN 11 8 - 25 mg/dL [facility] Creatinine 0.81 0.80 - 1.30 mg/dL [facility] Glucose 198 70 - 199 mg/dL [facility] Comment: Interpretive Data Fasting glucose >/= 126 mg/dl is diagnostic for diabetes. ?? Fasting is defined as no caloric intake for at least 8 hours. Fasting glucose between 100 mg/dl to 125 mg/dl is diagnostic of prediabetes. In a patient with classic symptoms of hyperglycemia or hyperglycemic crisis, a random glucose >/= 200 mg/dl is diagnostic for diabetes. In the absence of unequivocal hyperglycemia, results should be confirmed by repeat testing. The classification and Diagnosis of Diabetes Diabetes Care 2017;40 (Suppl. 1):S11. Current interpretive data was last revised 2017. Calcium 8.8 8.5 - 10.3 mg/dL [facility] Blood 08/20/2021 8:51 PM MARKETING LIAISON 08/20/2021 9:36 PM MARKETING LIAISON Alma Machado NP LAB BLOOD ORDERABLES Fin al Result [facility] Department [place] [address] * (ABNORMAL) CBC without differential (08/20/2021 8:51 PM MARKETING LIAISON) WBC 11.4(H) 3.8 - 9.9 K/cumm [facility] Hgb 12.4(L) 13.0 - 17.5 g/dL [facility] Hct 37.7(L) 38.9 - 50.3 % [facility] Plt 350 150 - 400 K/cumm [facility] MPV 10.9 9.1 - 12.3 fL [facility] RBC 4.05(L) 4.30 - 5.80 M/cumm [facility] MCV 93.1 81.3 - 96.4 fL [facility] MCH 30.6 27.1 - 33.3 pg [facility] MCHC 32.9 32.3 - 35.7 g/dL [facility] RDW CV 14.3 11.1 - 14.9 % [facility] RDW SD 48.5(H) 35.7 - 48.1 fL [facility] NRBC abs 0.00 0.00 - 0.01 K/cumm [facility] Blood 08/20/2021 8:51 PM MARKETING LIAISON 08/20/2021 9:37 PM MARKETING LIAISON Alma Machado NP LAB BLOOD ORDERABLES Fin al Result Performing Organization Address [facility] Co de Phone Number [facility] [place] [address] * (ABNORMAL) POCT glucose (08/20/2021 7:55 PM MARKETING LIAISON) Glucose, POC 222(H) 70 - 199 mg/dL [facility] Blood 08/20/2021 7:55 PM MARKETING LIAISON 08/20/2021 7:55 PM MARKETING LIAISON Ramin Christine MD LAB POCT ORDERABLES - DEVICE Final Result Performing Organization Address [facility] Co de Phone Number [facility] [place] [address] * (ABNORMAL) POCT glucose (08/20/2021 6:10 PM MARKETING LIAISON) Glucose, POC 275(H) 70 - 199 mg/dL [facility] Blood 08/20/2021 6:10 PM MARKETING LIAISON 08/20/2021 6:10 PM MARKETING LIAISON Ramin Christine MD LAB POCT ORDERABLES - DEVICE Final Result Performing Organization Address [facility] [place] [address] * EEG (08/20/2021 3:08 PM MARKETING LIAISON) Anatomical Region Laterality Modality EEG Narrative 08/20/2021 4:54 PM MARKETING LIAISON Extended EEG Report Patient Name: Deepak Alvarado [facility] Medical Record Number (MRN): [id number] [facility] Record: [id number] Date of (): 1960 EEG Date: 08/20/2021 Ordering Provider: Elroy Gama MD CC: Unknown, Notinfile Start Time: 08/20/2021 1:44:18 PM ? End Time: 08/20/2021 2:45:34 PM Introduction: Mr. Alvarado is a 61 y.o. 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 The EEG was performed to evaluate for seizures. This is a 32 channel EEG recording acquired on a Heyy EEG-1200 acquisition system. Scalp electrodes were placed according to the international 10-20 System. The analog EEG was filtered from 1-70 Hz and digitally sampled at 200 Hz. The record was then reformatted for review in bipolar and referential montages. EEG Description: There was no well-developed posterior rhythm. The background consisted of bilateral, diffuse, asynchronous admixed theta and delta range activity, with a predominance of lower frequency activity over the right hemisphere, most prominent over the right temporal-parietal region. The record showed variability. Hyperventilation and photic strobe stimulation were not performed. There were no epileptiform abnormalities. There was no significant EEG change during the recorded body movements. Interpretation: The EEG was abnormal due to 1) right hemispheric slowing, maximal over the right temporoparietal region and 2) moderate generalized slowing. Focal slowing indicates focal cerebral dysfunction, consistent with the patient's history. Generalized slowing indicates diffuse cerebral dysfunction as seen in metabolic, toxic, or diffuse or multifocal structural abnormalities. By signing this report, the attending Electroencephalographer certifies that he/she personally reviewed the electrodiagnostics study and has edited this report to fully conform with his/her intent. Signing Attending: Jerry Guzman MD PhD us Ramin Christine MD NEUROLOGY ORDERABLES F inal Result * US Vein Duplex Lower Extremity Bilateral Complete (08/20/2021 11:43 AM MARKETING LIAISON) Anatomical Region Laterality Modality Vascular Bilateral Ultrasound 08/20/2021 11:1 9 AM MARKETING LIAISON Narrative 08/20/2021 1:03 PM MARKETING LIAISON [facility] - Department of Vascular Surgery, Vascular Laboratory [address] [place] [id number] Lower Extremity Venous Ultrasound Report Patient Name: DEEPAK ALVARADO : 1960 (61y 1m) Study Date: 08/20/2021 11:19:42 Gender: M Tech: Location: [place] [address] Ref.Physician: ANTONIO FISHER Height(Cm): BSA: Weight(Kg): Quality: Adequate Order Physician: ANTONIO FISHER Procedures: Vascular Report: Venous Duplex imaging was performed bilaterally in the lower extremities. The common femoral, femoral, popliteal, posterior tibial, peroneal veins were evaluated for patency, spontaneity and phasicity with Doppler, compression and augmentation maneuvers. Great saphenous vein proximal at the junction was evaluated with compression maneuvers. Indications: Venous Insufficiency. Findings: Performing Secondary Spanish Teacher: Sherita Guaman RVT. Bilateral: Venous Doppler signals in the bilateral lower extremity are within normal limits for spontaneity and phasicity and respond normally to augmentation maneuvers. No evidence of deep vein thrombus by duplex, proximal to the calf. Conclusions: 1. There is no evidence of acute deep vein thrombosis in the lower extremities bilaterally. Noninvasive venous studies cannot rule out isolated calf vein obstruction. History: CVA, HLD, HTN, CABG. Previous Studies: Previous study performed on 06/01/21, negative. Disclaimer: The signing physician has reviewed all images pertaining to this test. These images and this report will be retained in the patient chart by the Vascular Laboratory for the legally required time period. This chart constitutes the legal record of any testing performed. Electronically Signed By: Balta Fay MD [facility] [phone] 2021-08-20 13:03:38 MARKETING LIAISON CC: CC: Procedure Note Balta Fay MD - 08/20/2021 [facility] - Department of Vascular Surgery,Vascular Laboratory [address] [place] [address] Lower Extremity Venous Ultrasound Report Patient Name: DEEPAK ALVARADOPatient ID: [id number] : 1960 (61y 1m)Study Date: 08/20/2021 11:19:42 Gender: MAccession #: [id number] Tech: Location: [id number] Ref.Physician: ANTONIO FISHERHeight(Cm): BSA: Weight(Kg): Quality: AdequateOrder Physician: ANTONIO FISHER Procedures: Vascular Report: Venous Duplex imaging was performed bilaterally in the lower extremities.The common femoral, femoral, popliteal, posterior tibial, peroneal veins wereevaluated for patency, spontaneity and phasicity with Doppler, compression and augmentationmaneuvers. Great saphenous vein proximal at the junction was evaluated with compressionmaneuvers. Indications: Venous Insufficiency. Findings: Performing Secondary Spanish Teacher: Sherita Guaman RVT. Bilateral: Venous Doppler signals in the bilateral lower extremity are within normallimits for spontaneity and phasicity and respond normally to augmentation maneuvers.No evidence of deep vein thrombus by duplex, proximal to the calf. Conclusions: 1. There is no evidence of acute deep vein thrombosis in the lowerextremities bilaterally. Noninvasive venous studies cannot rule out isolated calf veinobstruction. History: CVA, HLD, HTN, CABG. Previous Studies: Previous study performed on 06/01/21, negative. Disclaimer: The signing physician has reviewed all images pertaining to this test.These images and this report will be retained in the patient chart by the VascularLaboratory for the legally required time period. This chart constitutes the legal record ofany testing performed. Electronically Signed By: Balta Fay MD [facility] [phone] 2021-08-20 13:03:38 MARKETING LIAISON CC: CC: Antonio Fisher OPERATING SYSTEM PROGRAMMER IMG US PROCEDURES Final Result * POCT glucose (08/20/2021 11:01 AM MARKETING LIAISON) Glucose, POC 173 70 - 199 mg/dL [facility] Blood 08/20/2021 11:0 1 AM MARKETING LIAISON 08/20/2021 11:01 AM MARKETING LIAISON Ramin Christine MD LAB POCT ORDERABLES - DEVICE Final Result Performing Organization Address City/[facility]/ZIP Co de Phone Number [facility] [place] [address] * POCT glucose (08/20/2021 7:24 AM MARKETING LIAISON) Glucose, POC 156 70 - 199 mg/dL [facility] Blood 08/20/2021 7:24 AM MARKETING LIAISON 08/20/2021 7:24 AM MARKETING LIAISON us Ramin Christine MD LAB POCT ORDERABLES - DEVICE Final Result Performing Organization Address [facility] [place] [address] * POCT glucose (08/20/2021 4:07 AM MARKETING LIAISON) Glucose, POC 139 70 - 199 mg/dL [facility] Blood 08/20/2021 4:07 AM MARKETING LIAISON 08/20/2021 4:07 AM MARKETING LIAISON us Ramin Christine MD LAB POCT ORDERABLES - DEVICE Final Result Performing Organization Address [facility] Co de Phone Number [id number] [place] [address] * (ABNORMAL) POCT glucose (08/19/2021 11:39 PM MARKETING LIAISON) Glucose, POC 267(H) 70 - 199 mg/dL [facility] Blood 08/19/2021 11:3 9 PM MARKETING LIAISON 08/19/2021 11:39 PM MARKETING LIAISON us Ramin Christine MD LAB POCT ORDERABLES - DEVICE Final Result Performing Organization Address City/[facility]/ZIP Co de Phone Number [facility] [place] [address] * CTA Head Neck W WO Contrast (08/19/2021 9:18 PM MARKETING LIAISON) Anatomical Region Laterality Modality Head and Neck N/A Computed Tomogra phy 08/19/2021 9:29 PM MARKETING LIAISON Impressions 08/20/2021 7:33 AM MARKETING LIAISON 1. Evolving intraparenchymal hemorrhage within the right posterior cerebral artery territory infarct. 2. No evidence of aneurysm or vascular malformation. ??Oligemia of the P2 and P3 segments on the right secondary to hemorrhagic stroke best seen on image 20 series 11. Dictated by: Sia Jennings M.D. The radiology attending physician has personally reviewed this study, and had reviewed and/or edited this written report and agrees with it. Electronically signed by: Mirian Velásquez M.D. Narrative 08/20/2021 7:33 AM MARKETING LIAISON EXAMINATION: Computed tomography angiography (CTA) of the head without and with contrast Computed tomography angiography (CTA) of the neck with contrast HISTORY: Hemorrhagic conversion. TECHNIQUE: Computed tomography of the head was performed without contrast according to standard protocol. Computed tomographic angiography was then obtained from the aortic arch to the vertex following the uneventful administration of intravenous contrast. 3D images were generated on a dedicated workstation. Contrast information: 94 mL Optiray-350 COMPARISON: 08/19/2021 at 6:25 PM FINDINGS: There is evolving intraparenchymal hemorrhage within the right posterior cerebral artery ??territory involving the right occipital and posterior temporal lobe. There is surrounding vasogenic edema with unchanged mass effect on the posterior horn of the right lateral ventricle. The ventricles are unchanged. Periventricular white matter hypodensities are nonspecific but may represent chronic microvascular ischemic changes. There is atherosclerotic calcification of the carotid arteries. The visualized portions of the orbits are normal. The visualized portions of the mastoids are normal. The visualized portions of the paranasal sinuses are normal. No fractures are identified. Scattered subcentimeter lymph nodes are seen in the neck. None are pathologically enlarged or abnormally enhancing. The muscles of the neck are normal. Fascial planes are preserved and the deep spaces of the neck are normal. The visualized airway is widely patent. The spinal canal is normal in caliber. There is multilevel degenerative disc disease. Neural foramina are normal. Limited examination of the superior thorax shows no pulmonary infiltrate, suspicious nodules, or pleural effusions. Angiographic findings: The visualized aortic arch appears normal with normal configuration of the great vessels. The innominate artery and both subclavian arteries are normal in course and caliber. The common carotid arteries are normal in course and caliber with normal carotid bifurcations bilaterally. There is stenosis of the left internal carotid artery. ??Oligemia of the P2 and P3 segments on the right secondary to hemorrhagic stroke best seen on image 20 series 11. The [id number] is complete. The anterior and middle cerebral arteries are normal. The vertebral arteries are codominant. Mild atherosclerotic calcification of the vertebral arteries The basilar artery is normal. The posterior cerebral arteries are normal. There is no aneurysm or vascular malformation identified. Procedure Note Mirian Guthrie MD - 08/20/2021 EXAMINATION: Computed tomography angiography (CTA) of the head without and with contrast Computed tomography angiography (CTA) of the neck with contrast HISTORY: Hemorrhagic conversion. TECHNIQUE: Computed tomography of the head was performed without contrast according to standard protocol. Computed tomographic angiography was then obtained from the aortic arch to the vertex following the uneventful administration of intravenous contrast. 3D images were generated on a dedicated workstation. Contrast information: 94 mL Optiray-350 COMPARISON: 08/19/2021 at 6:25 PM FINDINGS: There is evolving intraparenchymal hemorrhage within the right posterior cerebral artery territory involving the right occipital and posterior temporal lobe. There is surrounding vasogenic edema with unchanged mass effect on the posterior horn of the right lateral ventricle. The ventricles are unchanged. Periventricular white matter hypodensities are nonspecific but may represent chronic microvascular ischemic changes. There is atherosclerotic calcification of the carotid arteries. The visualized portions of the orbits are normal. The visualized portions of the mastoids are normal. The visualized portions of the paranasal sinuses are normal. No fractures are identified. Scattered subcentimeter lymph nodes are seen in the neck. None are pathologically enlarged or abnormally enhancing. The muscles of the neck are normal. Fascial planes are preserved and the deep spaces of the neck are normal. The visualized airway is widely patent. The spinal canal is normal in caliber. There is multilevel degenerative disc disease. Neural foramina are normal. Limited examination of the superior thorax shows no pulmonary infiltrate, suspicious nodules, or pleural effusions. Angiographic findings: The visualized aortic arch appears normal with normal configuration of the great vessels. The innominate artery and both subclavian arteries are normal in course and caliber. The common carotid arteries are normal in course and caliber with normal carotid bifurcations bilaterally. There is stenosis of the left internal carotid artery. Oligemia of the P2 and P3 segments on the right secondary to hemorrhagic stroke best seen on image 20 series 11. The [id number] is complete. The anterior and middle cerebral arteries are normal. The vertebral arteries are codominant. Mild atherosclerotic calcification of the vertebral arteries The basilar artery is normal. The posterior cerebral arteries are normal. There is no aneurysm or vascular malformation identified. IMPRESSION: 1. Evolving intraparenchymal hemorrhage within the right posterior cerebral artery territory infarct. 2. No evidence of aneurysm or vascular malformation. Oligemia of the P2 and P3 segments on the right secondary to hemorrhagic stroke best seen on image 20 series 11. Dictated by: Sia Jennings M.D. The radiology attending physician has personally reviewed this study, and had reviewed and/or edited this written report and agrees with it. Electronically signed by: Mirian Velásquez M.D. Ramin Christine MD IMG CT PROCEDURES Luz l Result * eGFR (08/19/2021 7:36 PM MARKETING LIAISON) [facility] eGFR >90 90 - 130 mL/min/1. 73 m2 [facility] Comment: Interpretive Data Reference Interval Normal ?>/= 90 mL/min/1.73m2 Mildly decreased* ? 60 - 89 mL/min/1.73m2 Mildly to moderately decreased ?45 - 59 mL/min/1.73m2 Moderately to severely decreased ??30 - 44 mL/min/1.73m2 Severely decreased ?15 - 29 mL/min/1.73m2 Kidney Failure ?< 15 ??mL/min/1.73m2 *Relative to young adult level Estimated glomerular filtration rate is determined by the 2020 CKD-EPI equation recommended by the National Kidney Foundation (A Unifying Approach to GFR Estimation: Recommendations of the NKF-ASK Task Force on Reassessing the Inclusion of Race in Diagnosing Kidney Disease, JASN 202). The CKD-EPI equation should not be used for patients with unstable renal function and has not been validated in children and those over 70. Current interpretive data was last reviewed 2021. Blood 08/19/2021 7:36 PM MARKETING LIAISON 08/19/2021 7:56 PM MARKETING LIAISON Alma Machado [employer]PERATING SYSTEM PROGRAMMER LAB BLOOD ORDERABLES Fin al Result Performing Organization Address [facility] de Phone Number [facility] [place] [address] * Magnesium (08/19/2021 7:36 PM MARKETING LIAISON) Magnesium 2.2 1.4 - 2.5 mg/dL [facility] Blood 08/19/2021 7:36 PM MARKETING LIAISON 08/19/2021 7:56 PM MARKETING LIAISON Antonio Fisher [employer]PERATING SYSTEM PROGRAMMER LAB BLOOD ORDERABLES Fi nal Result Performing Organization Address [facility] de Phone Number [facility] [place] [address] * (ABNORMAL) Vitamin D 25 hydroxy (08/19/2021 7:36 PM MARKETING LIAISON) Vitamin D 25-OH 15(L) 30 - 80 ng/mL [facility] Blood 08/19/2021 7:36 PM MARKETING LIAISON 08/19/2021 7:56 PM MARKETING LIAISON Antonio Fisher [employer]PERATING SYSTEM PROGRAMMER LAB BLOOD ORDERABLES Fi nal Result [facility] [place] [address] * (ABNORMAL) Basic metabolic panel (08/19/2021 7:36 PM MARKETING LIAISON) Sodium 137 135 - 145 mmol/L [facility] Potassium, pl 3.5 3.3 - 4.9 mmol/L [facility] Chloride 102 97 - 110 mmol/L [facility] CO2 24 22 - 32 mmol/L [facility] Anion gap 11 2 - 15 mmol/L [facility] BUN 8 8 - 25 mg/dL [facility] Creatinine 0.70(L) 0.80 - 1.30 mg/dL [facility] Glucose 148 70 - 199 mg/dL [facility] Comment: Interpretive Data Fasting glucose >/= 126 mg/dl is diagnostic for diabetes. ?? Fasting is defined as no caloric intake for at least 8 hours. Fasting glucose between 100 mg/dl to 125 mg/dl is diagnostic of prediabetes. In a patient with classic symptoms of hyperglycemia or hyperglycemic crisis, a random glucose >/= 200 mg/dl is diagnostic for diabetes. In the absence of unequivocal hyperglycemia, results should be confirmed by repeat testing. The classification and Diagnosis of Diabetes Diabetes Care 2017;40 (Suppl. 1):S11. Current interpretive data was last revised 2017. Calcium 9.2 8.5 - 10.3 mg/dL [facility] Blood 08/19/2021 7:36 PM MARKETING LIAISON 08/19/2021 7:56 PM MARKETING LIAISON us Alma Machado [employer]PERATING SYSTEM PROGRAMMER LAB BLOOD ORDERABLES Fin al Result [facility] [place] [address] * (ABNORMAL) CBC without differential (08/19/2021 7:36 PM MARKETING LIAISON) WBC 11.7(H) 3.8 - 9.9 K/cumm [facility] Hgb 12.3(L) 13.0 - 17.5 g/dL [facility] Hct 36.1(L) 38.9 - 50.3 % [facility] Plt 373 150 - 400 K/cumm [facility] MPV 10.4 9.1 - 12.3 fL [facility] RBC 3.99(L) 4.30 - 5.80 M/cumm [facility] MCV 90.5 81.3 - 96.4 fL [facility] MCH 30.8 27.1 - 33.3 pg [facility] MCHC 34.1 32.3 - 35.7 g/dL [facility] RDW CV 13.9 11.1 - 14.9 % [facility] RDW SD 46.4 35.7 - 48.1 fL [facility] NRBC abs 0.00 0.00 - 0.01 K/cumm [facility] Blood 08/19/2021 7:36 PM MARKETING LIAISON 08/19/2021 7:56 PM MARKETING LIAISON Alma Machado [employer]PERATING SYSTEM PROGRAMMER LAB BLOOD ORDERABLES Fin al Result [facility] [place] [address] * POCT glucose (08/19/2021 7:24 PM MARKETING LIAISON) [facility] Signature Glucose, POC 159 70 - 199 mg/dL [facility] Blood 08/19/2021 7:24 PM MARKETING LIAISON 08/19/2021 7:24 PM MARKETING LIAISON Ramin Christine MD LAB POCT ORDERABLES - DEVICE Final Result [facility] [place] [place] [address] * CT Head WO Contrast (08/19/2021 6:40 PM MARKETING LIAISON) Anatomical Region Laterality Modality Head and Neck N/A Computed Tomogra phy 08/19/2021 7:32 PM MARKETING LIAISON Impressions 08/20/2021 8:01 AM MARKETING LIAISON Evolving intraparenchymal hemorrhage within the right posterior cerebral artery territory infarct with unchanged localized mass effect. There is no midline shift. Dictated by: Sia Jennings M.D. The radiology attending physician has personally reviewed this study, and had reviewed and/or edited this written report and agrees with it. Electronically signed by: Mirian Velásquez M.D. Narrative 08/20/2021 8:01 AM MARKETING LIAISON EXAMINATION: CT head without contrast HISTORY: 61-year-old man with hemorrhagic conversion of ischemic stroke. TECHNIQUE: Noncontrast CT of the brain was performed with images acquired from skull base to vertex. COMPARISON: 08/19/2021 at 11:52 AM FINDINGS: There is evolving intraparenchymal hemorrhage within the right posterior cerebral artery ??territory involving the right occipital and posterior temporal lobe. There is surrounding vasogenic edema with unchanged mass effect on the posterior horn of the right lateral ventricle. The ventricles are unchanged in size. Periventricular white matter hypodensities are nonspecific but may represent chronic microvascular ischemic changes. There is intravascular calcification of the coronary arteries. The visualized portions of the orbits are normal. The visualized portions of the mastoids are normal. The visualized portions of the paranasal sinuses are normal. No fractures are identified. Intracranial atherosclerotic disease. Procedure Note Mirian Guthrie MD - 08/20/2021 EXAMINATION: CT head without contrast HISTORY: 61-year-old man with hemorrhagic conversion of ischemic stroke. TECHNIQUE: Noncontrast CT of the brain was performed with images acquired from skull base to vertex. COMPARISON: 08/19/2021 at 11:52 AM FINDINGS: There is evolving intraparenchymal hemorrhage within the right posterior cerebral artery territory involving the right occipital and posterior temporal lobe. There is surrounding vasogenic edema with unchanged mass effect on the posterior horn of the right lateral ventricle. The ventricles are unchanged in size. Periventricular white matter hypodensities are nonspecific but may represent chronic microvascular ischemic changes. There is intravascular calcification of the coronary arteries. The visualized portions of the orbits are normal. The visualized portions of the mastoids are normal. The visualized portions of the paranasal sinuses are normal. No fractures are identified. Intracranial atherosclerotic disease. IMPRESSION: Evolving intraparenchymal hemorrhage within the right posterior cerebral artery territory infarct with unchanged localized mass effect. There is no midline shift. Dictated by: Sia Jennings M.D. The radiology attending physician has personally reviewed this study, and had reviewed and/or edited this written report and agrees with it. Electronically signed by: Mirian Velásquez M.D. Ramin Christine MD IMG CT PROCEDURES Luz l Result * XR Chest 1 View (08/19/2021 6:10 PM MARKETING LIAISON) Anatomical Region Laterality Modality Body, Chest N/A Computed Radiogr aphy 08/20/2021 9:38 AM MARKETING LIAISON Impressions 08/20/2021 11:47 AM MARKETING LIAISON The current study is compared with the prior radiograph dated ??07/28/2021. Median sternotomy wires are aligned. Numerous mediastinal clips are seen from prior coronary artery bypass graft surgery. Left upper quadrant surgical clips are present. No confluent consolidation, pleural effusion, or pneumothorax is seen. Cardiac silhouette is stable. Dictated by: Balta Saini M.D. The radiology attending physician has personally reviewed this study, and had reviewed and/or edited this written report and agrees with it. Electronically signed by: Hina Oneal M.D. Narrative 08/20/2021 11:47 AM MARKETING LIAISON EXAMINATION: 1 view chest radiograph Procedure Note Hina Oneal MD - 08/20/2021 EXAMINATION: 1 view chest radiograph IMPRESSION: The current study is compared with the prior radiograph dated 07/28/2021. Median sternotomy wires are aligned. Numerous mediastinal clips are seen from prior coronary artery bypass graft surgery. Left upper quadrant surgical clips are present. No confluent consolidation, pleural effusion, or pneumothorax is seen. Cardiac silhouette is stable. Dictated by: Balta Saini M.D. The radiology attending physician has personally reviewed this study, and had reviewed and/or edited this written report and agrees with it. Electronically signed by: Hina Oneal M.D. Alma Machado OPERATING SYSTEM PROGRAMMER IMG XR PROCEDURES Final Result * Drugs of Abuse Screen, Urine with Reflex Confirmation (08/19/2021 6:09 PM MARKETING LIAISON) Amphetamine, ur Not Detected CutOff 500ng/mL [facility] Comment: Interpretive Data - Amphetamines: ??Samples containing greater than 500 ng/mL d-methamphetamine ??or other cross-reacting amphetamine compounds are reported as positive. ??Amphetamine immunoassays are subject to significant false positive rates due to cross-reactivity of non-amphetamine drugs. Current Interpretive Data was last reviewed 2018. Barbiturates, ur Not Detected CutOff 200ng/mL [facility] Comment: Interpretive Data - Barbiturates: ??Samples containing greater than 200 ng/mL secobarbital or other cross-reacting barbiturate compounds are reported as positive. ??False positive and false negative results are possible. Current Interpretive Data was last reviewed 2018. Benzodiazepines, ur Not Detected CutOff 100ng/mL [facility] Comment: Interpretive Data - Benzodiazepines: ??Samples containing greater than 100 ng/mL nordiazepam or other cross-reacting compounds are reported as positive. ?? False positive and false negative results are possible. ?? Current Interpretive Data was last reviewed 2018. Cannabinoids, ur Not Detected CutOff 50 ng/mL [facility] Cocaine, ur Not Detected CutOff 150ng/mL [facility] Comment: Interpretive Data - Cocaine: ??Samples containing greater than 150 ng/mL benzoylecgonine or other cross-reacting compounds are reported as positive. False positive and false negative results are possible. Current Interpretive Data was last reviewed 2018. Fentanyl, Ur Not Detected Cutoff 1 ng/mL [facility] Comment: Interpretive Data - Fentanyls: ??Samples containing greater than 1 ng/mL fentanyl or other cross-reacting fentanyl compounds are reported as detected. ??False positive and false negative results are possible. Current Interpretive Data was last reviewed 2019. Methadone, ur Not Detected CutOff 300ng/mL [facility] Comment: Interpretive Data - Methadone: ??Samples containing greater than 300 ng/mL d,l-methadone or other cross-reacting compounds are reported as positive. ??False positive and false negative results are possible. Current Interpretive Data was last reviewed 2018. Opiates, ur Not Detected CutOff 300ng/mL [facility] Comment: Interpretive Data - Opiates: ??Samples containing greater than 300 ng/mL morphine or other cross-reacting compounds are reported as positive. ??False positive and false negative results are possible. Current Interpretive Data was last reviewed 2018. Oxycodone, ur Not Detected CutOff 100ng/mL [facility] Comment: Interpretive Data - Oxycodone: ??Samples containing greater than 100 ng/mL oxycodone or other cross-reacting compounds are reported as positive. ??False positive and false negative results are possible. ?? Current Interpretive Data was last reviewed 2018. Phencyclidine, ur Not Detected CutOff 25 ng/mL [facility] Comment: Interpretive Data - Phencyclidine: ??Samples containing greater than 25 ng/mL phencyclidine or other cross-reacting compounds are reported as positive. ??False positive and false negative results are possible. ?? Current Interpretive Data was last reviewed 2018. Urine Creatinine 59 mg/dL [facility] Comment: Interpretive Data Urine Creatinine: < 10 mg/dL is extremely dilute = or > 10 but < 20 mg/dL is dilute = or > 20 mg/dL is normal Current Interpretive Data was last revised on 2017. Urine 08/19/2021 6:09 PM MARKETING LIAISON 08/19/2021 6:18 PM MARKETING LIAISON Narrative [facility] - 08/19/2021 6:58 PM MARKETING LIAISON Drug of Abuse screening is performed by immunoassay for medical purposes only. ??This is not to be used for Pain Management purposes. ??If Detected, confirmation testing will be performed for Amphetamines, Cocaine, Fentanyl, Methadone, Opiates, Oxycodone or Phencyclidine. Ramin Christine MD LAB URINE ORDERABLES F inal Result [facility] [place] [address] * Check Sample (08/19/2021 6:09 PM MARKETING LIAISON) Pathologist [facility] ABO Rh A Positive [facility] HCLL OTHER 08/19/2021 6:09 PM MARKETING LIAISON 08/19/2021 6:21 PM MARKETING LIAISON Ramin Christine MD LAB BLOOD ORDERABLES F inal Result Performing Organization Address [facility] de Phone Number [facility] [place] [address] * Troponin I high-sensitivity series (baseline, 2hr, 4hr, 6hr) (08/19/2021 5:03 PM MARKETING LIAISON) [facility] Trop I hs <4 <=35 ng/L [facility] Comment: Interpretive Data For further hscTnI resources including the diagnostic algorithm and an aid in interpretation, copy and paste this link: https://bjhlab.testcatalog.org/show/[email or web address] Current Interpretive Data last revised 2019. Blood 08/19/2021 5:03 PM MARKETING LIAISON 08/19/2021 5:30 PM MARKETING LIAISON Alma Machado NP LAB BLOOD ORDERABLES Fin al Result Performing Organization Address [facility] de Phone Number [facility] [place] [address] * (ABNORMAL) Urinalysis reflex to microscopic and culture Urine (08/19/2021 5:03 PM MARKETING LIAISON) [facility] Color, ur Straw Yellow [facility] Clarity, ur Clear Clear [facility] Specific gravity, ur 1.040(H) 1.003 - 1.030 [facility] pH, urine 6.0 [facility] Protein, ur ql Negative Negative [facility] Glucose, ur ql 4+(A) Negative [facility] Ketones, ur 1+(A) Negative [facility] Bilirubin, ur Negative Negative [facility] Blood, ur Negative Negative [facility] Urobilinogen, ur <2.0 <2.0 mg/dL [facility] Nitrite, ur Negative Negative [facility] Leukocyte esterase, ur Negative Negative [facility] UA reflex comment Reflex conditions for microscopic UA and culture not met. [facility] Urine 08/19/2021 5:03 PM MARKETING LIAISON 08/19/2021 5:26 PM MARKETING LIAISON Narrative [facility] - 08/19/2021 5:39 PM MARKETING LIAISON ?? Urine pH is affected by diet, medications, systemic acid-base disturbances, and renal tubular function. ??pH may affect urinary stone formation. ??For example, urine pH below 6.0 may help reduce the tendency for calcium phosphate stones and pH greater than 6.0 may reduce the tendency for uric acid stone formation. Source: [employer] Last revised 06-30-2017 Alma Machado NP LAB MICROBIOLOGY - GENER AL ORDERABLES Final Result [facility] Department of [place] [address] * Type and screen (08/19/2021 5:03 PM MARKETING LIAISON) Pathologist [facility] [place], indirect Negative [facility] ABO Rh A Positive [facility] Blood 08/19/2021 5:03 PM MARKETING LIAISON 08/19/2021 5:53 PM MARKETING LIAISON Narrative [facility] - 08/19/2021 6:59 PM MARKETING LIAISON Has the patient had Daratumumab or Isatuximab in the past 6 months?->Unknown Alma Machado NP LAB BLOOD BANK TEST ORDE RABLES Final Result [facility] [place] [address] * eGFR (08/19/2021 4:42 PM MARKETING LIAISON) Pathologist [facility] eGFR >90 90 - 130 mL/min/1. 73 m2 [facility] Comment: Interpretive Data Reference Interval Normal ?>/= 90 mL/min/1.73m2 Mildly decreased* ? 60 - 89 mL/min/1.73m2 Mildly to moderately decreased ?45 - 59 mL/min/1.73m2 Moderately to severely decreased ??30 - 44 mL/min/1.73m2 Severely decreased ?15 - 29 mL/min/1.73m2 Kidney Failure ?< 15 ??mL/min/1.73m2 *Relative to young adult level Estimated glomerular filtration rate is determined by the 2020 CKD-EPI equation recommended by the National Kidney Foundation (A Unifying Approach to GFR Estimation: Recommendations of the NKF-ASK Task Force on Reassessing the Inclusion of Race in Diagnosing Kidney Disease, JASN 2020). The CKD-EPI equation should not be used for patients with unstable renal function and has not been validated in children and those over 70. Current interpretive data was last reviewed 2021. Blood 08/19/2021 4:42 PM MARKETING LIAISON 08/19/2021 5:04 PM MARKETING LIAISON Antonio Fisher NP LAB BLOOD ORDERABLES Fi nal Result Performing Organization Address City/State/[facility] Co de Phone Number [facility] [place] [address] * Ethanol (08/19/2021 4:42 PM MARKETING LIAISON) Ethanol <10 <=10 mg/dL [facility] Comment: Interpretive Data Legal limit of intoxication > or = 80 mg/dL Levels > or = 400 mg/dL are potentially TOXIC. Current interpretive data was last revised on 2018. Blood 08/19/2021 4:42 PM MARKETING LIAISON 08/19/2021 5:04 PM MARKETING LIAISON Ramin Christine MD LAB BLOOD ORDERABLES F inal Result Performing Organization Address [facility] Co de Phone Number [facility] [place] [address] * (ABNORMAL) Hemoglobin A1c (08/19/2021 4:42 PM MARKETING LIAISON) Hgb A1C 10.9(H) 4.0 - 5.6 % [facility] Estimated Average Glucose 266 mg/dL [facility] Comment: The ADA recommends reporting an estimated Average Glucose (eAG) with all Hemoglobin A1c results using the equation derived from a study of 507 normal and diabetic adults. ??Minority populations were underrepresented and children were not included. ?? (Diabetes Care 2020; 43(S1): S66-S76). ??The eAG is not equivalent to a fasting glucose. Blood 08/19/2021 4:42 PM MARKETING LIAISON 08/19/2021 5:04 PM MARKETING LIAISON Ramin Christine MD LAB BLOOD ORDERABLES F inal Result Performing Organization Address [facility] de Phone Number [facility] [place] [address] * aPTT (08/19/2021 4:42 PM MARKETING LIAISON) aPTT 29 27 - 37 sec [facility] Comment: Interpretive Data Therapeutic heparin range: 60.0 - 94.0 seconds. Based on correlation with therapeutic heparin activity range of 0.3-0.7 Units/mL. Current interpretive data was last revised on 2020. Blood 08/19/2021 4:42 PM MARKETING LIAISON 08/19/2021 5:06 PM MARKETING LIAISON Antonio Fisher NP LAB BLOOD ORDERABLES Fi nal Result Performing Organization Address City/[facility] Co de Phone Number [facility] [place] [address] * Protime-INR (08/19/2021 4:42 PM MARKETING LIAISON) [facility] PT 11.7 9.5 - 13.6 sec [facility] INR 1.1 0.9 - 1.2 [facility] Comment: Interpretive data Oral anticoagulant therapeutic ranges: Venous thromboembolism prophylaxis or treatment: 2.0-3.0 CARDIOLOGY Standard range: 2.0-3.0 High-intensity range: 2.5-3.5 Refer to indication-specific guidelines for appropriate target ranges for prosthetic heart valve replacement. Current interpretive data was last revised on 2019. Blood 08/19/2021 4:42 PM MARKETING LIAISON 08/19/2021 5:06 PM MARKETING LIAISON Antonio Fisher OPERATING SYSTEM PROGRAMMER LAB BLOOD ORDERABLES nal Result [facility] [place] [address] * (ABNORMAL) CBC without differential (08/19/2021 4:42 PM MARKETING LIAISON) [facility] WBC 12.0(H) 3.8 - 9.9 K/cumm [facility] Hgb 12.8(L) 13.0 - 17.5 g/dL [facility] Hct 39.0 38.9 - 50.3 % [facility] Plt 398 150 - 400 K/cumm [facility] MPV 10.6 9.1 - 12.3 fL [facility] RBC 4.23(L) 4.30 - 5.80 M/cumm [facility] MCV 92.2 81.3 - 96.4 fL [facility] MCH 30.3 27.1 - 33.3 pg [facility] MCHC 32.8 32.3 - 35.7 g/dL [facility] RDW CV 14.0 11.1 - 14.9 % [facility] RDW SD 47.2 35.7 - 48.1 fL [facility] NRBC abs 0.00 0.00 - 0.01 K/cumm [facility] Blood 08/19/2021 4:42 PM MARKETING LIAISON 08/19/2021 5:04 PM MARKETING LIAISON Antonio Fisher OPERATING SYSTEM PROGRAMMER LAB BLOOD ORDERABLES Fi nal Result Performing Organization Address City/[facility]/ZIP Co de Phone Number [facility] [place] [address] * Phosphorus (08/19/2021 4:42 PM MARKETING LIAISON) Pathologist [facility] Phosphorus, pl 3.9 2.3 - 4.5 mg/dL [facility] Blood 08/19/2021 4:42 PM MARKETING LIAISON 08/19/2021 5:04 PM MARKETING LIAISON Antonio Fisher NP LAB BLOOD ORDERABLES Fi nal Result Performing Organization Address [facility] Co de Phone Number [facility] [place] [address] * Magnesium (08/19/2021 4:42 PM MARKETING LIAISON) [facility] Magnesium 1.9 1.4 - 2.5 mg/dL [facility] Blood 08/19/2021 4:42 PM MARKETING LIAISON 08/19/2021 5:04 PM MARKETING LIAISON Antonio Fisher OPERATING SYSTEM PROGRAMMER LAB BLOOD ORDERABLES Fi nal Result Performing Organization Address City/[facility] [place] [address] * (ABNORMAL) Comprehensive metabolic panel (08/19/2021 4:42 PM MARKETING LIAISON) [facility] Sodium 134(L) 135 - 145 mmol/L [facility] Potassium, pl 4.0 3.3 - 4.9 mmol/L [facility] Chloride 99 97 - 110 mmol/L [facility] CO2 24 22 - 32 mmol/L [facility] Anion gap 11 2 - 15 mmol/L [facility] BUN 9 8 - 25 mg/dL [facility] Creatinine 0.77(L) 0.80 - 1.30 mg/dL [facility] Glucose 185 70 - 199 mg/dL [facility] Comment: Interpretive Data Fasting glucose >/= 126 mg/dl is diagnostic for diabetes. ?? Fasting is defined as no caloric intake for at least 8 hours. Fasting glucose between 100 mg/dl to 125 mg/dl is diagnostic of prediabetes. In a patient with classic symptoms of hyperglycemia or hyperglycemic crisis, a random glucose >/= 200 mg/dl is diagnostic for diabetes. In the absence of unequivocal hyperglycemia, results should be confirmed by repeat testing. The classification and Diagnosis of Diabetes Diabetes Care 2017;40 (Suppl. 1):S11. Current interpretive data was last revised 2017. Calcium 9.8 8.5 - 10.3 mg/dL [facility] Bilirubin, total 0.5 0.1 - 1.2 mg/dL [facility] Protein, pl 8.2 6.5 - 8.5 g/dL [facility] Albumin 4.9 3.5 - 5.0 g/dL [facility] Alk phos 111 40 - 130 Units/L [facility] ALT 19 7 - 55 Units/L [facility] AST 17 10 - 50 Units/L [facility] Blood 08/19/2021 4:42 PM MARKETING LIAISON 08/19/2021 5:04 PM MARKETING LIAISON Antonio Fisher OPERATING SYSTEM PROGRAMMER LAB BLOOD ORDERABLES Fi nal Result [facility] [place] [address] * Neuro CT MR Outside Consult (08/19/2021 4:28 PM MARKETING LIAISON) Anatomical Region Laterality Modality N/A Computed Tomogra phy 08/19/2021 4:45 PM MARKETING LIAISON Impressions 08/19/2021 4:47 PM MARKETING LIAISON 1. 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 The findings, conclusions and recommendations within this report do not replace the initial findings, conclusions ??and recommendations made at the facility where the study was performed based upon the imaging and clinical condition at that time. ??Comparison with the prior report and clinical history is necessary. ??The provided images may or may not represent the la posta source data set and thus may contain changes that may lower the accuracy of this second-opinion interpretation. Dictated by: Rowdy Moar MD, PHD The radiology attending physician has personally reviewed this study, and had reviewed and/or edited this written report and agrees with it. Electronically signed by: Christy Espino M.D. Narrative 08/19/2021 4:47 PM MARKETING LIAISON EXAMINATION: RADIOLOGY CONSULTATION ON OUTSIDE IMAGING STUDY STUDY INITIALLY PERFORMED: 08/19/2021 at institution name. TYPE OF STUDY: Multiple CT images of the head without contrast are provided at the time of this interpretation. The protocol was adequate to address the clinical question. The outside final report was not available at the time of this second opinion interpretation. 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 ??There is mildly increased mass effect on the posterior horn of right lateral ventricle compared to prior study of the MRI on 07/29/2021. Scattered ill-defined hypodensities in the periventricular and subcortical white matter are nonspecific, likely on the basis of chronic small vessel ischemic change. There is atherosclerotic calcification of intracranial carotid arteries. Topogram demonstrates no lytic lesions or fractures. ??Ventricles are of normal size and morphology. ??The thorne-white matter differentiation is normal. The visualized portions of the orbits are normal. The visualized portions of the mastoids are normal. The visualized portions of the paranasal sinuses are normal. No fractures are identified. Procedure Note Christy Espino MD - 08/19/2021 EXAMINATION: RADIOLOGY CONSULTATION ON OUTSIDE IMAGING STUDY STUDY INITIALLY PERFORMED: 08/19/2021 at institution name. TYPE OF STUDY: Multiple CT images of the head without contrast are provided at the time of this interpretation. The protocol was adequate to address the clinical question. The outside final report was not available at the time of this second opinion interpretation. 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 There is mildly increased mass effect on the posterior horn of right lateral ventricle compared to prior study of the MRI on 07/29/2021. Scattered ill-defined hypodensities in the periventricular and subcortical white matter are nonspecific, likely on the basis of chronic small vessel ischemic change. There is atherosclerotic calcification of intracranial carotid arteries. Topogram demonstrates no lytic lesions or fractures. Ventricles are of normal size and morphology. The thorne-white matter differentiation is normal. The visualized portions of the orbits are normal. The visualized portions of the mastoids are normal. The visualized portions of the paranasal sinuses are normal. No fractures are identified. IMPRESSION: 1. 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 The findings, conclusions and recommendations within this report do not replace the initial findings, conclusions and recommendations made at the facility where the study was performed based upon the imaging and clinical condition at that time. Comparison with the prior report and clinical history is necessary. The provided images may or may not represent the la posta source data set and thus may contain changes that may lower the accuracy of this second-opinion interpretation. Dictated by: Rowdy Mora MD, PHD The radiology attending physician has personally reviewed this study, and had reviewed and/or edited this written report and agrees with it. Electronically signed by: Christy Espino M.D. Richard Thorne MD PhD IMG CT PROCEDURES Final Result * POCT glucose (08/19/2021 4:01 PM MARKETING LIAISON) Glucose, POC 182 70 - 199 mg/dL [facility] Blood 08/19/2021 4:01 PM MARKETING LIAISON 08/19/2021 4:01 PM MARKETING LIAISON Ramin Christine MD LAB POCT ORDERABLES - DEVICE Final Result [facility] Prasad [facility] [place] [address] documented in this encounter Visit Diagnoses Diagnosis Diagnosis unknown- Primary Diagnosis unknown Cerebrovascular accident (CVA), unspecified mechanism (HCC) documented in this encounter Administered Medications Inactive Administered Medications - up to 3 most recent administrations Medication Order MAR Action Action Date Dose Rate Site albuterol 2.5 mg/0.5 mL nebulizer solution 2.5 mg 2.5 mg, nebulization, Every 4 hours PRN (therapist phys), wheezing, Starting on Tue08/19/21 at 1633 aspirin chewable tablet 81 mg 81 mg, oral, Daily, First dose on Tue08/21/21 at 0945 Given 08/21/2021 11:13 AM MARKETING LIAISON 81 mg atorvastatin (LIPITOR) tablet 40 mg 40 mg, oral, Nightly, First dose on Tue08/19/21 at 2100 Given 08/20/2021 8:21 PM MARKETING LIAISON 40 mg Given 08/19/2021 8:00 PM MARKETING LIAISON 40 mg carvediloL (COREG) tablet 3.125 mg 3.125 mg, oral, 2 times daily with meals (bkfst, dinner), First dose on Tue08/20/21 at 1130 Given 08/21/2021 8:38 AM MARKETING LIAISON 3.125 mg Given 08/20/2021 6:16 PM MARKETING LIAISON 3.125 mg Given 08/20/2021 12:47 PM MARKETING LIAISON 3.125 mg cholecalciferol (VITAMIN D-3) tablet/capsule 400 Units 400 Units, feeding tube, Once, On Tue08/20/21 at 0515, For 1 dose Given 08/20/2021 5:37 AM MARKETING LIAISON 400 Units cholecalciferol (VITAMIN D-3) tablet/capsule 400 Units 400 Units, oral, Daily, First dose (after last reorder) on Tue08/21/21 at 0900 Given 08/21/2021 8:37 AM MARKETING LIAISON 400 Units dextrose (D10W) 10% bolus 250 mL 250 mL, intravenous, at 1,000 mL/hr, Administer over 15 Minutes, Every 15 min PRN, blood glucose less than 70 mg/dL and UNABLE to swallow/take PO glucose/juice., Starting on Tue08/19/21 at 1704, After treatment for hypoglycemia, recheck BG followed by treatment every 15 minutes until the BG is greater than 100 mg/dL. Then check BG 1 hour post treatment. If BG is less than 100 mg/dL, repeat Q15 minute BG checks and treatment. Call MD for each episode of hypoglycemia., Indications: hypoglycemic disorderIndications:hypogly cemic disorder dextrose (GLUTOSE) 40 % gel 15 g 15 g, oral, Every 15 min PRN, low blood sugar, blood glucose less than 70 mg/dL, Starting on Tue08/19/21 at 1704, If patient is alert and able to eat/drink, give 15 gm glucose or one juice (4 fluid ounces) NOT ORANGE JUICE. After treatment for hypoglycemia, recheck BG followed by treatment every 15 minutes until the BG is greater than 100 mg/dL. Then check BG 1 hour post-treatment. If BG is less than 100 mg/dL, repeat Q15 minute BG checks and treatment. Call MD for each episode of hypoglycemia. WATER SUPERINTENDENT STATES GLUTOSE-15 CONTAINS GLUCOSE 40% W/W (50% W/V), Indications: hypoglycemic disorderIndications:hypogly cemic disorder glucagon injection 1 mg 1 mg, intramuscular, Every 30 min PRN, low blood sugar, blood glucose less than 70 mg/dL AND no IV access AND unable to take PO glucose/juice., Starting on Tue08/19/21 at 1704, After Glucagon is administered, position patient on side if possible to avoid aspiration. Obtain IV access. Follow glucagon treatment with glucose treatment or IV dextrose. After treatment for hypoglycemia, recheck BG followed by treatment every 15 minutes until the BG is greater than 100 mg/dL. Then check BG 1 hour post treatment. If BG is less than 100 mg/dL, repeat Q15 minute BG checks and treatment. Call MD for each episode of hypoglycemia. Reconstitute 1 mg vial with 1 mL SWFI. Use immediately following reconstitution. heparin 5,000 unit/mL injection 5,000 Units 5,000 Units, subcutaneous, Every 8 hours scheduled, First dose (after last modification) on Kristina 08/20/21 at 2200, Indications: VTE ProphylaxisIndications:VTE Prophylaxis Given 08/21/2021 5:41 AM MARKETING LIAISON 5,000 Units Right Lower Abdomen Given 08/20/2021 8:21 PM MARKETING LIAISON 5,000 Units L eft Lower Abdomen hydrALAZINE (APRESOLINE) injection 10 mg 10 mg, intravenous, Administer over 2 Minutes, Every 15 min PRN, high blood pressure, for MAP greater than 110 when HR less than 70, Starting on Tue08/19/21 at 1633, Indications: hypertensionIndications:hypert ension insulin glargine (LANTUS, SEMGLEE) 100 unit/mL injection 10 Units 10 Units, subcutaneous, Daily, First dose (after last modification) on Tue08/20/21 at 1200, Do not hold if NPO. Do not mix with other insulins, Indications: Diabetes MellitusIndications:Diabetes Mellitus Given 08/20/2021 11:44 AM MARKETING LIAISON 10 Units Left Upper Arm insulin glargine (LANTUS, SEMGLEE) 100 unit/mL injection 20 Units 20 Units, subcutaneous, Daily, First dose (after last modification) on Tue08/21/21 at 1200, Do not hold if NPO. Do not mix with other insulins, Indications: Diabetes MellitusIndications:Diabetes Mellitus Given 08/21/2021 11:38 AM MARKETING LIAISON 20 Units Left Lower Abdomen insulin lispro (HumaLOG, ADMELOG) 100 unit/mL injection 10 Units 10 Units, subcutaneous, Once, On Tue08/20/21 at 1845, For 1 dose, Indications: HyperglycemiaIndications:Hyper glycemia Given 08/20/2021 6:15 PM MARKETING LIAISON 10 Units Left Lower Abdomen insulin lispro (HumaLOG, ADMELOG) 100 unit/mL injection 2-10 Units 2-10 Units, subcutaneous, Every 4 hours, First dose on Tue08/19/21 at 2000, Blood Sugar Insulin Dose 130 or less No insulin 131 - 150 2 units 151 - 180 4 units 181 - 210 6 units 211 - 230 8 units 231 - 250 10 units Greater than 250 - Call MD for hyperglycemia management instructions Do NOT hold for NPO status. , *Administer pre-meal doses when pts food tray arrives in room. Do not administer pre-meal doses to NPO patients., Indications: HyperglycemiaIndications:Hyper glycemia Given 08/20/2021 4:09 AM MARKETING LIAISON 2 Units Left Lower Abdomen Given 08/19/2021 11:45 PM MARKETING LIAISON 10 Units L eft Upper Arm Given 08/19/2021 7:28 PM MARKETING LIAISON 4 Units Le ft Lower Abdomen insulin lispro (HumaLOG, ADMELOG) 100 unit/mL injection 2-10 Units 2-10 Units, subcutaneous, 4 times daily before meals & nightly, First dose (after last modification) on Kristina 08/20/21 at 0845, Blood Sugar Insulin Dose 130 or less No insulin 131 - 150 2 units 151 - 180 4 units 181 - 210 6 units 211 - 230 8 units 231 - 250 10 units Greater than 250 - Call MD for hyperglycemia management instructions Do NOT hold for NPO status. , *Administer pre-meal doses when pts food tray arrives in room. Do not administer pre-meal doses to NPO patients., Indications: HyperglycemiaIndications:Hyper glycemia Given 08/21/2021 11:37 AM MARKETING LIAISON 6 Units Left Lower Abdomen Given 08/21/2021 8:48 AM MARKETING LIAISON 6 Units Ri ght Lower Abdomen Given 08/20/2021 8:21 PM MARKETING LIAISON 8 Units Le ft Lower Abdomen ioversoL (OPTIRAY 350) syringe syringe 100 mL 100 mL, intravenous, Once in imaging, contrast, Starting on Tue08/19/21 at 2104, For 1 dose Contrast Given 08/19/2021 9:18 PM MARKETING LIAISON 94 mL labetaloL (NORMODYNE,TRANDATE) injection 10 mg 10 mg, intravenous, Every 15 min PRN, high blood pressure, for MAP greater than 110 when HR greater than 70, Starting on Tue08/19/21 at 1633 levETIRAcetam (KEPPRA) tablet 1,000 mg 1,000 mg, oral, 2 times daily, First dose on Tue08/21/21 at 0945, May mix with 120 mL of enteral nutrition formula or disperse crushed tablets (500 mg tablet strength studied) in 10 mL of water, shake for 5 minutes to dissolve, and administer immediately via enteral feeding tube Given 08/21/2021 11:14 AM MARKETING LIAISON 1,000 mg magnesium sulfate 2 g/50 mL in water (premix) 2 g 2 g, intravenous, Administer over 60 Minutes, Once, On Tue08/19/21 at 1830, For 1 dose New Bag 08/19/2021 5:59 PM MARKETING LIAISON 2 g ondansetron (ZOFRAN) injection 4 mg 4 mg, intravenous, Administer over 2 Minutes, Every 6 hours PRN, nausea, vomiting, Starting on Tue08/19/21 at 1642, Proceed to trimethobenzamide if no relief within 30 minutes. , Indications: Nausea and VomitingIndications:Nausea and Vomiting pantoprazole DR (PROTONIX) extended release tablet 40 mg 40 mg, oral, Daily, First dose on Tue08/19/21 at 1715, Do not crush, chew, cut, dissolve, open or otherwise manipulate tablet/capsule., Indications: Treatment of Non-Bleeding Gastric DisorderIndications:Treatment of Non-Bleeding Gastric Disorder Given 08/21/2021 8:38 AM MARKETING LIAISON 40 mg Given 08/20/2021 8:12 AM MARKETING LIAISON 40 mg Given 08/19/2021 5:59 PM MARKETING LIAISON 40 mg potassium chloride ER (KLOR-CON) extended release tablet 40 mEq 40 mEq, oral, Every 2 hours, First dose on Tue08/19/21 at 2200, For 2 doses, Total 80 mEq Do not crush, chew, cut, dissolve, open or otherwise manipulate tablet/capsule., Indications: hypokalemiaIndications:hypokalemia Given 08/19/2021 11:46 PM MARKETING LIAISON 40 mEq Given 08/19/2021 9:55 PM MARKETING LIAISON 40 mEq QUEtiapine (SEROquel) tablet 25 mg 25 mg, oral, Nightly PRN, agitation, Starting on Tue08/19/21 at 2239 Given 08/19/2021 10:42 PM MARKETING LIAISON 25 mg ramelteon (ROZEREM) tablet 8 mg 8 mg, oral, Nightly, First dose on Tue08/20/21 at 2100, Indications: Sleep-Onset InsomniaIndications:Sleep-Onset Insomnia Given 08/20/2021 8:21 PM MARKETING LIAISON 8 mg senna (SENOKOT) tablet 1 tablet 1 tablet, oral, 2 times daily, First dose on Tue08/19/21 at 2100, If able to swallow tablets. Hold for diarrhea., Indications: constipationIndications:constipat ion sodium chloride 0.9% infusion 75 mL/hr, intravenous, Continuous, Starting on Tue08/19/21 at 1730 New Bag 08/19/2021 5:59 PM MARKETING LIAISON 75 mL/hr 75 mL/hr trimethobenzamide (TIGAN) injection 200 mg 200 mg, intramuscular, Every 6 hours PRN, nausea, vomiting, Starting on Tue08/19/21 at 1642, If not relieved by ondansetron within 30 minutes., Indications: Nausea and VomitingIndications:Nausea and Vomiting documented in this encounter Discontinued Medications Medication Sig Discontinue Reason Start Date End Da te traMADoL (ULTRAM) 50 mg tablet Take 1 tablet (50 mg total) by mouth 4 (four) times a day as needed for pain for up to 10 doses 07/30/2021 08/19/2021 clopidogreL (PLAVIX) 75 mg tablet Take 1 tablet (75 mg total) by mouth daily Stop Taking at Discharge 06/04/2021 08/21/2021 documented as of this encounter Active and Recently Administered Medications Times are shown in MARKETING LIAISON. Scheduled Medication Order 08/19/2021 08/20/2021 08/21/2021 aspirin chewable tablet 81 mg 81 mg, oral, Daily, First dose on Tue08/21/21 at 0945 1113 (Given - Provider: Natalie Hassan, DEEPIKA) atorvastatin (LIPITOR) tablet 40 mg 40 mg, oral, Nightly, First dose on Tue08/19/21 at 2100 2000 (Given - Provider: Kathrin Carrion, DEEPIKA) 2020 (Given - Provider: Cherrie Snyder, DEEPIKA) carvediloL (COREG) tablet 3.125 mg 3.125 mg, oral, 2 times daily with meals (bkfst, dinner), First dose on Tue08/20/21 at 1130 1247 (Given - Provider: Jeffrey Taylor, DEEPIKA)1816 (Given - Provider: Tamie Eaton RN) 0838 (Given - Provider: Natalie Hassan, DEEPIKA) cholecalciferol (VITAMIN D-3) tablet/capsule 400 Units (COMPLETED) 400 Units, feeding tube, Once, On Kristina 08/20/21 at 0515, For 1 dose 0537 (Given - Provider: Kathrin Carrion, DEEPIKA) cholecalciferol (VITAMIN D-3) tablet/capsule 400 Units 400 Units, oral, Daily, First dose (after last reorder) on Tue08/21/21 at 0900 0837 (Given - Provider: Natalie Hassan, DEEPIKA) heparin 5,000 unit/mL injection 5,000 Units 5,000 Units, subcutaneous, Every 8 hours scheduled, First dose (after last modification) on Tue08/20/21 at 2200, Indications: VTE Prophylaxis 2020 (Given - Provider: Cherrie Snyder, DEEPIKA) 0541 (Given - Provider: Cherrie Snyder RN)1400 (Due) insulin glargine (LANTUS, SEMGLEE) 100 unit/mL injection 10 Units (CANCELED) 10 Units, subcutaneous, Daily, First dose (after last modification) on Tue08/20/21 at 1200, Do not hold if NPO. Do not mix with other insulins, Indications: Diabetes Mellitus 1144 (Given - Provider: Jeffrey Taylor RN) insulin glargine (LANTUS, SEMGLEE) 100 unit/mL injection 20 Units 20 Units, subcutaneous, Daily, First dose (after last modification) on Tue08/21/21 at 1200, Do not hold if NPO. Do not mix with other insulins, Indications: Diabetes Mellitus 1138 (Given - Provider: Natalie Hassan RN) insulin lispro (HumaLOG, ADMELOG) 100 unit/mL injection 10 Units (COMPLETED) 10 Units, subcutaneous, Once, On Tue08/20/21 at 1845, For 1 dose, Indications: Hyperglycemia 181 (Given - Provider: Tamie Etaon RN) insulin lispro (HumaLOG, ADMELOG) 100 unit/mL injection 2-10 Units (CANCELED) 2-10 Units, subcutaneous, Every 4 hours, First dose on Tue08/19/21 at 2000, Blood Sugar Insulin Dose 130 or less No insulin 131 - 150 2 units 151 - 180 4 units 181 - 210 6 units 211 - 230 8 units 231 - 250 10 units Greater than 250 - Call MD for hyperglycemia management instructions Do NOT hold for NPO status. , *Administer pre-meal doses when pts food tray arrives in room. Do not administer pre-meal doses to NPO patients., Indications: Hyperglycemia 1928 (Given - Provider: Kathrin Carrion RN - Comment: bg 159)2345 (Given - Provider: Kathrin Carrion RN - Comment: bg 267 md notified) 0409 (Given - Provider: Kathrin Carrion RN - Comment: bg 139) insulin lispro (HumaLOG, ADMELOG) 100 unit/mL injection 2-10 Units 2-10 Units, subcutaneous, 4 times daily before meals & nightly, First dose (after last modification) on Tue08/20/21 at 0845, Blood Sugar Insulin Dose 130 or less No insulin 131 - 150 2 units 151 - 180 4 units 181 - 210 6 units 211 - 230 8 units 231 - 250 10 units Greater than 250 - Call MD for hyperglycemia management instructions Do NOT hold for NPO status. , *Administer pre-meal doses when pts food tray arrives in room. Do not administer pre-meal doses to NPO patients., Indications: Hyperglycemia 08 (Given - Provider: Jeffrey Taylor RN)1144 (Given - Provider: Jeffrey Taylor RN)181 (Not Given - Provider: Tamie Eaton RN - Reason: Other - Comment: see other order)2020 (Given - Provider: Cherrie Snyder RN) 0848 (Given - Provider: Natalie Hassan RN)1137 (Given - Provider: Natalie Hassan RN) levETIRAcetam (KEPPRA) tablet 1,000 mg 1,000 mg, oral, 2 times daily, First dose on Tue08/21/21 at 0945, May mix with 120 mL of enteral nutrition formula or disperse crushed tablets (500 mg tablet strength studied) in 10 mL of water, shake for 5 minutes to dissolve, and administer immediately via enteral feeding tube 1114 (Given - Provider: Natalie Hassan RN) magnesium sulfate 2 g/50 mL in water (premix) 2 g (COMPLETED) 2 g, intravenous, Administer over 60 Minutes, Once, On Tue08/19/21 at 1830, For 1 dose 175 (New Bag - Provider: Paresh Coombs, DEEPIKA) pantoprazole DR (PROTONIX) extended release tablet 40 mg 40 mg, oral, Daily, First dose on Tue08/19/21 at 1715, Do not crush, chew, cut, dissolve, open or otherwise manipulate tablet/capsule., Indications: Treatment of Non-Bleeding Gastric Disorder 175 (Given - Provider: Paresh Coombs, DEEPIKA) 08 (Given - Provider: Jeffrey Taylor RN) 0838 (Given - Provider: Natalie Hassan, DEEPIKA) potassium chloride ER (KLOR-CON) extended release tablet 40 mEq (COMPLETED) 40 mEq, oral, Every 2 hours, First dose on Tue08/19/21 at 2200, For 2 doses, Total 80 mEq Do not crush, chew, cut, dissolve, open or otherwise manipulate tablet/capsule., Indications: hypokalemia 2154 (Given - Provider: Kathrin Carrion RN)2345 (Given - Provider: Kathrin Carrion RN) ramelteon (ROZEREM) tablet 8 mg 8 mg, oral, Nightly, First dose on Tue08/20/21 at 2100, Indications: Sleep-Onset Insomnia 2020 (Given - Provider: Cherrie Snyder, DEEPIKA) senna (SENOKOT) tablet 1 tablet(Linked Group 1) 1 tablet, oral, 2 times daily, First dose on Tue08/19/21 at 2100, If able to swallow tablets. Hold for diarrhea., Indications: constipation 1914 (Not Given - Provider: Kathrin Carrion RN - Reason: Patient/family refused) 0812 (Not Given - Provider: Jeffrey Taylor RN - Reason: Patient/family refused)2020 (Not Given - Provider: Cherrie Snyder RN - Reason: Patient/family refused) 0838 (Not Given - Provider: Natalie Hassan RN - Reason: Patient/family refused) Continuous Medication Order 08/19/2021 08/20/2021 08/21/2021 sodium chloride 0.9% infusion (CANCELED) 75 mL/hr, intravenous, Continuous, Starting on Tue08/19/21 at 1730 1759 (New Bag - Provider: Paresh Coombs, DEEPIKA) 0835 (Stopped - Provider: Jeffrey Taylor RN) PRN Medication Order 08/19/2021 08/20/2021 08/21/2021 albuterol 2.5 mg/0.5 mL nebulizer solution 2.5 mg 2.5 mg, nebulization, Every 4 hours PRN (therapist phys), wheezing, Starting on Tue08/19/21 at 1633 dextrose (D10W) 10% bolus 250 mL(Linked Group 2) 250 mL, intravenous, at 1,000 mL/hr, Administer over 15 Minutes, Every 15 min PRN, blood glucose less than 70 mg/dL and UNABLE to swallow/take PO glucose/juice., Starting on Tue08/19/21 at 1704, After treatment for hypoglycemia, recheck BG followed by treatment every 15 minutes until the BG is greater than 100 mg/dL. Then check BG 1 hour post treatment. If BG is less than 100 mg/dL, repeat Q15 minute BG checks and treatment. Call MD for each episode of hypoglycemia., Indications: hypoglycemic disorder dextrose (GLUTOSE) 40 % gel 15 g(Linked Group 2) 15 g, oral, Every 15 min PRN, low blood sugar, blood glucose less than 70 mg/dL, Starting on Tue08/19/21 at 1704, If patient is alert and able to eat/drink, give 15 gm glucose or one juice (4 fluid ounces) NOT ORANGE JUICE. After treatment for hypoglycemia, recheck BG followed by treatment every 15 minutes until the BG is greater than 100 mg/dL. Then check BG 1 hour post-treatment. If BG is less than 100 mg/dL, repeat Q15 minute BG checks and treatment. Call MD for each episode of hypoglycemia. WATER SUPERINTENDENT STATES GLUTOSE-15 CONTAINS GLUCOSE 40% W/W (50% W/V), Indications: hypoglycemic disorder glucagon injection 1 mg 1 mg, intramuscular, Every 30 min PRN, low blood sugar, blood glucose less than 70 mg/dL AND no IV access AND unable to take PO glucose/juice., Starting on Tue08/19/21 at 1704, After Glucagon is administered, position patient on side if possible to avoid aspiration. Obtain IV access. Follow glucagon treatment with glucose treatment or IV dextrose. After treatment for hypoglycemia, recheck BG followed by treatment every 15 minutes until the BG is greater than 100 mg/dL. Then check BG 1 hour post treatment. If BG is less than 100 mg/dL, repeat Q15 minute BG checks and treatment. Call MD for each episode of hypoglycemia. Reconstitute 1 mg vial with 1 mL SWFI. Use immediately following reconstitution. hydrALAZINE (APRESOLINE) injection 10 mg(Linked Group 3) 10 mg, intravenous, Administer over 2 Minutes, Every 15 min PRN, high blood pressure, for MAP greater than 110 when HR less than 70, Starting on Tue08/19/21 at 1633, Indications: hypertension ioversoL (OPTIRAY 350) syringe syringe 100 mL (COMPLETED) 100 mL, intravenous, Once in imaging, contrast, Starting on Tue08/19/21 at 2104, For 1 dose 2117 (Contrast Given - Provider: Shoshana Medina, RT) labetaloL (NORMODYNE,TRANDATE) injection 10 mg(Linked Group 3) 10 mg, intravenous, Every 15 min PRN, high blood pressure, for MAP greater than 110 when HR greater than 70, Starting on Tue08/19/21 at 1633 ondansetron (ZOFRAN) injection 4 mg 4 mg, intravenous, Administer over 2 Minutes, Every 6 hours PRN, nausea, vomiting, Starting on Tue08/19/21 at 1642, Proceed to trimethobenzamide if no relief within 30 minutes. , Indications: Nausea and Vomiting QUEtiapine (SEROquel) tablet 25 mg 25 mg, oral, Nightly PRN, agitation, Starting on Tue08/19/21 at 2239 2242 (Given - Provider: Kathrin Carrion, RN) trimethobenzamide (TIGAN) injection 200 mg 200 mg, intramuscular, Every 6 hours PRN, nausea, vomiting, Starting on Tue08/19/21 at 1642, If not relieved by ondansetron within 30 minutes., Indications: Nausea and Vomiting Linked Groups Order Group 1: senna (SENOKOT) tablet 1 tabletJump to med 1 tablet, oral, 2 times daily, First dose on Tue08/19/21 at 2100, If able to swallow tablets. Hold for diarrhea., Indications: constipation Or senna 1.76 mg/mL syrup 8.8 mg (CANCELED) 8.8 mg, feeding tube, 2 times daily, First dose on Tue08/19/21 at 2100, If able to receive medications per tube. Hold for diarrhea., Indications: constipation Group 2: dextrose (GLUTOSE) 40 % gel 15 gJump to med 15 g, oral, Every 15 min PRN, low blood sugar, blood glucose less than 70 mg/dL, Starting on Tue08/19/21 at 1704, If patient is alert and able to eat/drink, give 15 gm glucose or one juice (4 fluid ounces) NOT ORANGE JUICE. After treatment for hypoglycemia, recheck BG followed by treatment every 15 minutes until the BG is greater than 100 mg/dL. Then check BG 1 hour post-treatment. If BG is less than 100 mg/dL, repeat Q15 minute BG checks and treatment. Call MD for each episode of hypoglycemia. WATER SUPERINTENDENT STATES GLUTOSE-15 CONTAINS GLUCOSE 40% W/W (50% W/V), Indications: hypoglycemic disorder Or dextrose (D10W) 10% bolus 250 mLJump to med 250 mL, intravenous, at 1,000 mL/hr, Administer over 15 Minutes, Every 15 min PRN, blood glucose less than 70 mg/dL and UNABLE to swallow/take PO glucose/juice., Starting on Tue08/19/21 at 1704, After treatment for hypoglycemia, recheck BG followed by treatment every 15 minutes until the BG is greater than 100 mg/dL. Then check BG 1 hour post treatment. If BG is less than 100 mg/dL, repeat Q15 minute BG checks and treatment. Call MD for each episode of hypoglycemia., Indications: hypoglycemic disorder Group 3: labetaloL (NORMODYNE,TRANDATE) injection 10 mgJump to med 10 mg, intravenous, Every 15 min PRN, high blood pressure, for MAP greater than 110 when HR greater than 70, Starting on Tue08/19/21 at 1633 Or hydrALAZINE (APRESOLINE) injection 10 mgJump to med 10 mg, intravenous, Administer over 2 Minutes, Every 15 min PRN, high blood pressure, for MAP greater than 110 when HR less than 70, Starting on Tue08/19/21 at 1633, Indications: hypertension documented in this encounter Orders Medications Ordered That Hunter ht Not Have Been Administered Count Last Ordered Date First Ordered Date heparin 5,000 unit/mL inject ion 5,000 Units 1 08/20/2021 insulin glargine (LANTUS, SE MGLEE) 100 unit/mL injection 10 Units 1 08/20/2021 insulin lispro (HumaLOG, ADM ELOG) 100 unit/mL injection 2-10 Units 1 08/20/2021 albuterol 2.5 mg/0.5 mL nebu lizer solution 2.5 mg 1 08/19/2021 dextrose (D10W) 10% bolus 250 mL 08/20/19 dextrose (GLUTOSE) 40 % gel 15 g 1 08/20/19 docusate (COLACE) 10 mg/mL o ral liquid 100 mg 1 08/19/2021 docusate sodium (COLACE) capsule 100 mg 1 0 08/19/2021 glucagon injection 1 mg 1 08/19/2021 hydrALAZINE (APRESOLINE) injection 10 mg 1 08/19/2021 labetaloL (NORMODYNE,TRANDAT E) injection 10 mg 1 08/19/2021 ondansetron (ZOFRAN) injection 4 mg 1 08/19 senna (SENOKOT) tablet 1 tablet 1 senna 1.76 mg/mL syrup 8.8 mg 1 08/19/2021 trimethobenzamide (TIGAN) injection 200 mg 1 08/19/2021 Lab Orders Without Results Count Last Ordered D ate First Ordered Date POCT GLUCOSE DEVICE 9 08/20/2021 08/20/19 ETHANOL 1 08/19/2021 HEMOGLOBIN A1C 1 08/19/2021 EKG Orders Without Results Count Last Ordered D ate First Ordered Date ECG 12-LEAD 1 08/19/2021 Nursing Count Last Ordered Date First Orde red Date NURSING SWALLOW ASSESSMENT 1 08/19/2021 WEIGH PATIENT 1 08/19/2021 Consult Count Last Ordered Date First Orde red Date IP CONSULT TO SPIRITUAL CARE 1 08/19/2021 BOOM CONVEYOR OPERATOR CONSULT 1 08/19/2021 Transfer Count Last Ordered Date First Orde red Date TRANSFER PATIENT 1 08/20/2021 CORE MEASURES Count Last Ordered Date First Ord ered Date REASON FOR NO VTE PROPHYLAXI S - HOSPITAL ADMISSION - MEDICATIONS 1 08/19/2021 documented in this encounter Additional Health Concerns Infection Onset Date Last Indicated Resolved Time MRSA Comment:08/20/2021 IP Review: patient's MRSA test from outside hospital negative on 05/26 when precautions were originally placed. OK to come off of contact precautions. Regina Schmidt RN 05/26/2021 08/03/2021 1:13 PM MARKETING LIAISON COVID: Recovered Comment:Added based on recent COVID infection. 06/17/2021 06/18/2021 10/15/2021 3:05 AM C DT documented as of this encounter Care Teams Paint Mixer Relationship Specialty Start Date End Date Unknown, Notinfile PCP - General 05/01/21 [place] [id number] [address] [facility] [address] [place] [address] Surgeon Cardiothoracic Surgery 05/01/21 [place] [id number] [address] [facility] [address] [facility] [address] [place] [address] Referring Physician Cardiovascular Disease 06/03/21 Miscellaneous, Not In File 07/30/21 Humphrey Manriquez MD [address] [address] Consulting Physician Neurology 07/30/21 documented as of this encounter
--- OUTSIDE RECORDS SUMMARY | 2024-06-21 19:50 | XMS_ITS | Encounter Summary ---
Author Organization [facility] Healthcare Address [address] [place] [address] Care Team Providers Care Wood Products Manufacturer Name Role Phone Unknown, Notinfile Primary Care Provider Unavail able Salbador Granados MD Unavailable [phone] Rubin Clayton MD Unavailable Miscellaneous, Not In File Unavailable Unava ilable Humphrey Manriquez MD Unavailable [phone] Encounter Details Date Type Department Care Team (Latest Contact Info) Description 08/21/2021 6:51 AM PAINTER PLATE - 08/21/2021 9:17 AM PAINTER PLATE Hospital Encounter [facility] Cardiac Diagnostic Lab [address] [place] [address] Discharge Disposition: Discharge to home or self care Social History Tobacco Use Types Packs/Day Years Used Date Smoking Tobacco: Former Cigarettes 1 40 Smokeless Tobacco: Never Comments:Stop smoking after [place] Alcohol Use Standard Drinks/Week Comments No 0 [...] on file Legal Sex Male 11:30 PM PAINTER PLATE Gender Identity Not on file Sexual Orientation Not on file documented as of this encounter Medications at Time of Discharge [...] mouth daily documented as of this encounter Discharge Disposition Disposition Code Departure Means Destination Discharge to home or self care documented in this encounter Plan of Treatment Not on file documented as of this encounter Procedures Procedure Name Priority Date/Time Associated Diagnosis Comments TRANSTHORACIC ECHO (TTE) COMPLETE W DOPPLER/CF W CONTRAST Routine 08/21/2021 8:40 AM PAINTER PLATE documented in this encounter Visit Diagnoses Not on filedocumented in this encounter Administered Medications Inactive Administered Medications - up to 3 most recent administrations Medication Order MAR Action Action Date Dose Rate Site perflutren protein-a (OPTISON) 3 mL in sodium chloride 0.9% 8 mL syringe 1-8 mL, intravenous, Once in imaging, contrast, Starting on Tue08/21/21 at 0755, For 1 dose, Intra-Procedure (CV) Contrast Given 08/21/2021 8:40 AM PAINTER PLATE 2 mL documented in this encounter Orders Medications Ordered That Hunter ht Not Have Been Administered Count Last Ordered Date First Ordered Date perflutren protein-a (OPTISO N) 3 mL in sodium chloride 0.9% 8 mL syringe 1 08/21/2021 documented in this encounter Additional Health Concerns Infection Onset Date Last Indicated Resolved Time COVID: Recovered Comment:Added based on recent COVID infection. 06/17/2021 06/18/2021 10/15/2021 3:05 AM C DT documented as of this encounter Care Teams Wood Products Manufacturer Relationship Specialty Start Date End Date Unknown, Notinfile PCP - General 05/01/21 [place] [id number] [address] [facility] [address] [facility] [place] [address] Surgeon Cardiothoracic Surgery 05/01/21 [place] [address] [address] [facility] [address] [facility] [place] [address] Referring Physician Cardiovascular Disease 06/03/21 Miscellaneous, Not In File 07/30/21 Humphrey Manriquez MD [address] [address] Consulting Physician Neurology 07/30/21 documented as of this encounter
--- OUTSIDE RECORDS SUMMARY | 2024-06-21 19:50 | XMS_ITS | Encounter Summary ---
Author Organization [facility] Home Care Servic es Address [address] [place] [address] Phone Care Team Providers Care Die Cutter Apprentice Name Role Phone Unknown, Notinfile Primary Care Provider Unavail able Salbador Granados MD Unavailable [phone] Rubin Clayton MD Unavailable Miscellaneous, Not In File Unavailable Unava ilable Humphrey Manriquez MD Unavailable [phone] Encounter Details Date Type Department Care Team (Late st Contact Info) Description 01/27/2023 Telephone [facility] Home [facility] Services [address] [place] [address] Unknown, Notinfile Social History Tobacco Use Types Packs/Day Years Used Date Smoking Tobacco: Former Cigarettes 1 40 Smokeless Tobacco: Never Comments:Stop smoking after [place] Alcohol Use Standard Drinks/Week Comments No 0 [...] on file Legal Sex Male 11:30 PM PICKING MACHINE OPERATOR Gender Identity Not on file Sexual Orientation Not on file documented as of this encounter Miscellaneous Notes * Telephone Encounter - Tracey Duarte - 01/27/2023 4:06 PM CDT I left a message on [facility] Care Coordination line [phone] to inform that [facility] isunable to accept the patient referral becauae we are not network with the patients documented in this encounter Plan of Treatment Not on file documented as of this encounter Visit Diagnoses Not on filedocumented in this encounter Care Teams Die Cutter Apprentice Relationship Specialty Start Date End Date Unknown, Notinfile PCP - General 05/01/21 [place] [address] [address] [place] [address] Surgeon Cardiothoracic Surgery 05/01/21 [place] [address] [address] [place] [address] Referring Physician Cardiovascular Disease 06/03/21 Miscellaneous, Not In File 07/30/21 Humphrey Manriquez MD [address] [place] [address] Consulting Physician Neurology 07/30/21 documented as of this encounter
--- OUTSIDE RECORDS SUMMARY | 2024-06-21 19:50 | XMS_ITS | Encounter Summary ---
Author Organization [facility] Address [address] [facility] [address] [place] [address] Care Team Providers Care Upholstery Repairer Name Role Phone Unknown, Notinfile Primary Care Provider Unavail able Salbador Granados MD Unavailable [phone] Rubin Clayton MD Unavailable Reason for Visit * Reason Onset Date Comments Covid-19 Home Monitoring 06/04/2021 Enrollm ent Day 1 Encounter Details Date Type Department Care Team (Late st Contact Info) Description 06/04/2021 Telephone [facility] Accountable Care Organization [address] [place] [id number] Xiomy Randolph, BRITTANI [address] [place] [address] [address] [place] [address] Covid-19 Home Monitoring (Enrollment Day 1) Social History Tobacco Use Types Packs/Day Years Used Date Smoking Tobacco: Every Day Cigarettes 1 40 Comments:Smoking History Pac ks/day: 1 Packs Alcohol Use Standard Drinks/Week Comments No 0 (1 standard drink = 0.6 oz pur e alcohol) AUDIT-C Answer Date Recorded Q1: How often do you have a drink containing alc ohol? Never 06/01/2021 Average Number of Drinks Not on file Q3: How often do you have si x or more drinks on one occasion? Never 06/01/2021 Sex and Gender Information Value Date Recorded Sex Assigned at Not on file Legal Sex Male 11:30 PM ACID CORRECTION HAND Gender Identity Not on file Sexual Orientation Not on file documented as of this encounter Miscellaneous Notes * Telephone Encounter - Xiomy Randolph LPN - 06/04/2021 10:41 AM ACID CORRECTION HAND This patient is not currently a good candidate for our COVID-19 home monitoring program because patient is in SNF. By saving a note using this template, the patient will drop off our home monitoring candidate reports for two weeks. If we still consider them to have an active case of COVID-19 at that time, we willreevaluate them for home monitoring. CORRECTION HAND documented in this encounter Plan of Treatment Not on file documented as of this encounter Visit Diagnoses Not on filedocumented in this encounter Additional Health Concerns Infection Onset Date Last Indicated Resolved Time COVID19 05/19/2021 05/19/2021 06/17/2021 3:06 AM ACID CORRECTION HAND Rhino/Enterovirus 05/26/2021 05/26/2021 06/09/2021 3:05 AM ACID CORRECTION HAND documented as of this encounter Care Teams Upholstery Repairer Relationship Specialty Start Date End Date Unknown, Notinfile PCP - General 05/01/21 [place] [address] [address] [place] [address] Surgeon Cardiothoracic Surgery 05/01/21 [place] [address] [address] [place] [address] Referring Physician Cardiovascular Disease 06/03/21 documented as of this encounter
--- OUTSIDE RECORDS SUMMARY | 2024-06-21 19:50 | XMS_ITS | Clinical Summary ---
Author Organization [facility] Address [address] [place] [address] Phone Care Team Providers Care Manager Medical Name Role Phone Provider, None Primary Care Provider Unavailabl e Allergies No known active allergies Medications lisinopril (PRINIVIL, ZESTRIL) 10 MG Tablet Take 10 mg by mouth daily. Active CARVEDILOL PO Take 6.12 mg by mouth. Active aspirin 325 MG Tablet Take 325 mg by mouth daily. Active pravastatin (PRAVACHOL) 80 MG Tablet Take 80 mg by mouth daily. Active pantoprazole (PROTONIX) 40 MG Tablet Delayed Response Take 40 mg by mouth daily. Active Insulin Detemir (LEVEMIR SC) 70 Units by Subcutaneous route. Active fenofibrate 160 MG Tablet Take 160 mg by mouth daily. Active sodium chloride (OCEAN) 0.65 % Solution 1 [place] by Nasal route as needed. 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 HEEL LINING PASTER Gender Identity Not on file Sexual Orientation Not on file Last Filed Vital Signs Vital Sign Reading Time Taken Comments Blood Pressure 112/73 05/21/2016 9:40 PM HEEL LINING PASTER Pulse 99 05/21/2016 9:40 PM HEEL LINING PASTER Temperature 36.5 ??C (97.7 ??F) 05/21/2016 9:40 PM CS T Respiratory Rate 16 05/21/2016 9:40 PM HEEL LINING PASTER Oxygen Saturation 96% 05/21/2016 9:40 PM HEEL LINING PASTER Inhaled Oxygen Concentration - - Weight 99.8 kg (220 lb) 05/21/2016 9:40 PM HEEL LINING PASTER Height 182.9 cm (6') 05/21/2016 9:40 PM HEEL LINING PASTER Body Mass Index 29.84 05/21/2016 9:40 PM HEEL LINING PASTER Plan of Treatment Not on file Insurance MEDICAID [place] Care Teams Manager Medical Relationship Specialty Start Date End Date Provider, None [place] PCP - General 05/21/16
--- OUTSIDE RECORDS SUMMARY | 2024-06-21 19:50 | XMS_ITS | Encounter Summary ---
Author Organization [facility] Healthcare Address [address] [place] [address] Care Team Providers Care Analytical Lead Name Role Phone Unknown, Notinfile Primary Care Provider Unavail able Salbador Granados MD Unavailable [phone] Rubin Clayton MD Unavailable Miscellaneous, Not In File Unavailable Unava ilable Humphrey Manriquez MD Unavailable [phone] Encounter Details Date Type Department Care Team (Latest Contact Info) Description 08/19/2021 4:28 PM CHOCOLATE PRODUCTION MACHINE OPERATOR - 08/19/2021 11:59 PM CHOCOLATE PRODUCTION MACHINE OPERATOR Hospital Encounter [facility], [facility] [place], [place] [id number] Discharge Disposition: Discharge to home or self care Social History Tobacco Use Types Packs/Day Years Used Date Smoking Tobacco: Former Cigarettes 1 40 Smokeless Tobacco: Never Comments:Stop smoking after [place] Alcohol Use Standard Drinks/Week Comments No 0 [...] on file Legal Sex Male 11:30 PM CHOCOLATE PRODUCTION MACHINE OPERATOR Gender Identity Not on file [...] tablet Take 40 mg by mouth daily clopidogreL (PLAVIX) 75 mg tablet Take 1 tablet (75 mg total) by mouth daily 30 tablet 3 06/04/2021 2 documented as of this encounter Discharge Disposition Disposition Code Departure Means Destination Discharge to home or self care documented in this encounter Plan of Treatment Not on file documented as of this encounter Procedures Procedure Name Priority Date/Time Associated Diagnosis Comments NEURO CT MR OUTSIDE CONSULT Routine 08/19/2021 4:28 PM CHOCOLATE PRODUCTION MACHINE OPERATOR Diagnosis unknown documented in this encounter Results * Neuro CT MR Outside Consult (08/19/2021 4:28 PM CHOCOLATE PRODUCTION MACHINE OPERATOR) Anatomical Region Laterality Modality N/A Computed Tomogra phy 08/19/2021 4:45 PM CHOCOLATE PRODUCTION MACHINE OPERATOR Impressions 08/19/2021 4:47 PM CHOCOLATE PRODUCTION MACHINE OPERATOR 1. Interval development of hemorrhage within the [...] images may or may not represent the [place] source data set and thus may contain changes that may lower the accuracy of this second-opinion interpretation. Dictated by: Rowdy Mora MD, PHD The radiology attending physician has personally reviewed this study, and had reviewed and/or edited this written report and agrees with it. Electronically signed by: Christy Espino M.D. 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 Dictated by: Rowdy Mora MD, PHD The radiology attending physician has personally reviewed this study, and had reviewed and/or edited this written report and agrees with it. Electronically signed by: Christy Espino M.D. Richard Thorne MD PhD IMG CT PROCEDURES Final Result documented in this encounter Visit Diagnoses Not on filedocumented in this encounter Additional Health Concerns Infection Onset Date Last Indicated Resolved Time MRSA Comment:08/20/2021 IP Review: patient's MRSA test from outside hospital negative on 05/26 when precautions were originally placed. OK to come off of contact precautions. Regina Schmidt RN 05/26/2021 08/03/2021 1:13 PM CHOCOLATE PRODUCTION MACHINE OPERATOR COVID: Recovered Comment:Added based on recent COVID infection. 06/17/2021 06/18/2021 10/15/2021 3:05 AM C DT documented as of this encounter Care Teams Analytical Lead Relationship Specialty Start Date End Date Unknown, Notinfile PCP - General 05/01/21 [place] [address] [address] [facility] 1 [facility] [address], [place] [address] Surgeon Cardiothoracic Surgery 05/01/21 [place] [address] [address] [facility] 1 [facility] [address], [place] [address] Referring Physician Cardiovascular Disease 06/03/21 Miscellaneous, Not In File 07/30/21 Humphrey Manriquez MD [address] [address] Consulting Physician Neurology 07/30/21 documented as of this encounter
--- OUTSIDE RECORDS SUMMARY | 2024-06-21 19:50 | XMS_ITS | Encounter Summary ---
Author Organization [facility] Healthcare Address [address] [place] [address] Care Team Providers Care Brineyard Supervisor Name Role Phone Unknown, Notinfile Primary Care Provider Unavail able Salbador Granados MD Unavailable [phone] Rubin Clayton MD Unavailable Miscellaneous, Not In File Unavailable Unava ilable Humphrey Manriquez MD Unavailable [phone] Encounter Details Date Type Department Care Team (Latest Contact Info) Description 08/21/2021 9:18 AM VIDEO EFFECTS EDITOR - 08/21/2021 11:59 PM VIDEO EFFECTS EDITOR Hospital Encounter [facility] [address] [place] [address] Discharge Disposition: Discharge to home or self care Social History Tobacco Use Types Packs/Day Years Used Date Smoking Tobacco: Former Cigarettes 1 40 Smokeless Tobacco: Never Comments:Stop smoking after [place] Alcohol Use Standard Drinks/Week Comments No 0 [...] on file Legal Sex Male 11:30 PM VIDEO EFFECTS EDITOR Gender Identity Not on file Sexual Orientation [...] Comments EVENT MONITOR Routine 08/21/2021 11:45 AM VIDEO EFFECTS EDITOR documented in this encounter Results * Event Monitor, 30 Day Event (08/21/2021 11:45 AM VIDEO EFFECTS EDITOR) Anatomical Region Laterality Modality Electrocardiogra phy 08/21/2021 9:20 AM VIDEO EFFECTS EDITOR Narrative 10/30/2021 10:37 AM CDT Patient name: Baldev Qiu Date of test: 08/21/2021 Type of Test: Event Monitor [place] [employer] [facility] #: [id number] ?Location: [facility] : 1960 ??Age: 61 ??Sex: M Ref Physician(s): ANNMARIE PITTMAN MD Interpreted by: Yariel Arriaza MD [employer] Tech: Elena Mayer Diagnosis: Monitoring Service: [employer] Reason for Test: R00.2: Palpitations Monitor Used: Body Guardian Heart (MCT) ??[id number] Enrollment Period: Aug 21 - Sep 19, 2021 [employer] comments: Patient Instructions: Understood directions and use [...] The full scanned/data report is available in [employer]. labeled MONITOR STRIPS PDF . This study [...] Jr., MD PhD - 10/30/2021 Patient name: Baldev Qiu Date of test: 08/21/2021 Type of Test: Event Monitor [place] [employer] [facility] #: [id number] Location: [facility] : 1960 Age: 61 Sex: M Ref Physician(s): ANNMARIE PITTMAN MD Interpreted by: Yariel Arriaza MD [facility] Tech: Elena Mayer Diagnosis: Monitoring Service: [employer] Reason for Test: R00.2: Palpitations Monitor Used: Body Guardian Heart (MCT) [id number] Enrollment Period: Aug 21 - Sep 19, 2021 [employer] Tech comments: Patient Instructions: Understood directions and [...] The full scanned/data report is available in [employer]. labeled MONITOR STRIPS PDF . This study was interpreted by Yariel Arriaza MD Confirmed on 10/30/2021 - 10:37:36 by Yariel Arriaza MD Summary of Transmitted Events: # Date Time HR Symptoms/Rhythm 1 08/23/21 18:04 104.6 None Reported Sinus Tachycardia w/Artifact/Lead Loss I have personally reviewed and interpreted this study. us Annmarie Pittman MD [facility] CARDIAC SERVICES PROCED URES Final Result documented in this encounter Visit Diagnoses Not on filedocumented in this encounter Additional Health Concerns Infection Onset Date Last Indicated Resolved Time COVID: Recovered Comment:Added based on recent COVID infection. 06/17/2021 06/18/2021 10/15/2021 3:05 AM C DT documented as of this encounter Care Teams Brineyard Supervisor Relationship Specialty Start Date End Date Unknown, Notinfile PCP - General 05/01/21 [place] [address] [address] [place] [id number] Surgeon Cardiothoracic Surgery 05/01/21 [place] [address] [address] [facility] [address] [address] Referring Physician Cardiovascular Disease 06/03/21 Miscellaneous, Not In File 07/30/21 Humphrey Manriquez MD [address] [address] Consulting Physician Neurology 07/30/21 documented as of this encounter
--- OUTSIDE RECORDS SUMMARY | 2024-06-21 19:50 | XMS_ITS | Encounter Summary ---
Author Organization [facility] Address [address] [place] [address] Phone Care Team Providers Care Hospital Supervisor Name Role Phone Unknown, Notinfile Primary Care Provider Unavail able Salbador Granados MD Unavailable [phone] Rubin Clayton MD Unavailable Miscellaneous, Not In File Unavailable Unava ilable Humphrey Manriquez MD Unavailable [phone] Encounter Details Date Type Department Care Team (Late st Contact Info) Description 08/20/2021 8:35 AM CONTROL AND RECOVERY SPECIAL TACTICS Ancillary Procedure [facility] Vascular Lab IP [address] [facility] [address] [place] [address] Social History Tobacco Use Types Packs/Day Years Used Date Smoking Tobacco: Former Cigarettes 1 40 Smokeless Tobacco: Never Comments:Stop smoking after [place] Alcohol Use Standard Drinks/Week Comments No 0 [...] on file Legal Sex Male 11:30 PM CONTROL AND RECOVERY SPECIAL TACTICS Gender Identity Not on file Sexual Orientation Not on file documented as of this encounter Plan of Treatment Not on file documented as of this encounter Procedures Procedure Name Priority Date/Time Associated Diagnosis Comments US VEIN DUPLEX LOWER EXTREMITY BILATERAL COMPLETE IP Routine 08/20/2021 11:43 AM CONTROL AND RECOVERY SPECIAL TACTICS documented in this encounter Results * US Vein Duplex Lower Extremity Bilateral Complete (08/20/2021 11:43 AM CONTROL AND RECOVERY SPECIAL TACTICS) Anatomical Region Laterality Modality Vascular Bilateral Ultrasound 08/20/2021 11:1 9 AM CONTROL AND RECOVERY SPECIAL TACTICS Narrative 08/20/2021 1:03 PM CONTROL AND RECOVERY SPECIAL TACTICS [facility] - Department of Vascular Surgery, Vascular Laboratory [address] [place] [address] Lower Extremity Venous Ultrasound Report Patient Name: BALDEV ALVARADO : 1960 (61y 1m) Study Date: 08/20/2021 11:19:42 Gender: M Tech: Location: [id number] Ref.Physician: LANIE FISHER Height(Cm): BSA: Weight(Kg): Quality: Adequate Order Physician: LANIE FISHER Procedures: Vascular Report: Venous Duplex imaging was performed bilaterally in the lower extremities. The common femoral, femoral, popliteal, posterior tibial, peroneal veins were evaluated for patency, spontaneity and phasicity with Doppler, compression and augmentation maneuvers. Great saphenous vein proximal at the junction was evaluated with compression maneuvers. Indications: Venous Insufficiency. Findings: Performing Mobile Ui/Ux Designer: Sherita Guaman RVT. Bilateral: Venous Doppler signals [...] performed. Electronically Signed By: Balta Fay MD [facility] [phone] 2021-08-20 13:03:38 CONTR[facility] RECOVERY SPECIAL TACTICS CC: CC: Procedure Note Balta Fay MD - 08/20/2021 [facility] - Department of Vascular Surgery,Vascular Laboratory [address] [place] [address] Lower Extremity Venous Ultrasound Report Patient Name: BALDEV ALVARADOPatient ID: [id number] : 1960 (61y 1m)Study Date: 08/20/2021 11:19:42 Gender: MAccession #: [id number] Tech: Location: [place] [address] Ref.Physician: Carey FISHER(Cm): BSA: Weight(Kg): Quality: AdequateOrder Physician: LANIE FISHER Procedures: Vascular Report: Venous Duplex imaging was performed bilaterally in the lower extremities.The common femoral, femoral, popliteal, posterior tibial, peroneal veins wereevaluated for patency, spontaneity and phasicity with Doppler, compression and augmentationmaneuvers. Great saphenous vein proximal at the junction was evaluated with compressionmaneuvers. Indications: Venous Insufficiency. Findings: Performing Mobile Ui/Ux Designer: Sherita Guaman RVT. Bilateral: Venous Doppler signals [...] performed. Electronically Signed By: Balta Fay MD [facility] [phone] 2021-08-20 13:03:38 [facility] REC[facility] CC: CC: Lanie Sesayharvey EVENTS ADMINISTRATIVE ASSISTANT IMG US PROCEDURES Final Result documented in this encounter Visit Diagnoses Not on filedocumented in this encounter Additional Health Concerns Infection Onset Date Last Indicated Resolved Time MRSA Comment:08/20/2021 IP Review: patient's MRSA test from outside hospital negative on 05/26 when precautions were originally placed. OK to come off of contact precautions. Regina Schmidt RN 05/26/2021 08/03/2021 1:13 PM CONTROL AND RECOVERY SPECIAL TACTICS COVID: Recovered Comment:Added based on recent COVID infection. 06/17/2021 06/18/2021 10/15/2021 3:05 AM C DT documented as of this encounter Care Teams Hospital Supervisor Relationship Specialty Start Date End Date Unknown, Notinfile PCP - General 05/01/21 [place] [address] [address] [place] [address] Surgeon Cardiothoracic Surgery 05/01/21 [place] [address] [address] [place] [address] Referring Physician Cardiovascular Disease 06/03/21 Miscellaneous, Not In File 07/30/21 Humphrey Manriquez MD [address] [facility] [address] [place] [address] Consulting Physician Neurology 07/30/21 documented as of this encounter
--- OUTSIDE RECORDS SUMMARY | 2024-06-21 19:50 | XMS_ITS | Encounter Summary ---
Author Organization [facility] Healthcare Address [address] [place] [address] Care Team Providers Care Wind Project Manager Name Role Phone Unknown, Notinfile Primary Care Provider Unavail able Salbador Granados MD Unavailable Rubin Clayton MD Unavailable Miscellaneous, Not In File Unavailable Unava ilable Humphrey Manriquez MD Unavailable [phone] Encounter Details Date Type Department Care Team (Late st Contact Info) Description 07/27/2021 Orders Only [place] [id number] [place] [address] Alexandru Osman MD [address] [place] [address] [place] [address] Social History Tobacco Use Types Packs/Day Years [...] of Binge Drinking Not on file 01/2022 Sex and Gender Information Value Date Recorded Sex Assigned at Not on file Legal Sex Male 11:30 PM SENIOR ENGINEERING TECHNICIAN Gender Identity Not on file Sexual Orientation [...] documented as of this encounter Care Teams Wind Project Manager Relationship Specialty Start Date End Date Unknown, Notinfile PCP - General 05/01/21 [place] [address] [address] [place] [address] Surgeon Cardiothoracic Surgery 05/01/21 [place] [address] [address] [place] [address] Referring Physician Cardiovascular Disease 06/03/21 Miscellaneous, Not In File 07/30/21 Humphrey Manriquez MD [address] [address] Consulting Physician Neurology 07/30/21 documented as of this encounter
--- OUTSIDE RECORDS SUMMARY | 2024-06-21 19:50 | XMS_ITS | Referral Summary ---
Author Organization [facility] [address] [facility] Address [address] [place] [address] Care Team Providers Care Java Support Engineer Name Role Phone Unknown, Notinfile Primary Care Provider Unavail able Salbador Granados MD Unavailable [phone] Rubin Clayton MD Unavailable Miscellaneous, Not In File Unavailable Unava ilable Humphrey Manriquez MD Unavailable [phone] Allergies Active Allergy Reactions Criticality Noted Date Comments Metformin Nausea & Vomiting High 09/20/2018 Metoclopramide Medications aspirin 81 mg enteric coated tablet Take 1 tablet (81 mg total) by mouth daily 30 tablet 11 1 Active carvediloL (COREG) 3.125 mg tablet Take 1 tablet (3.125 mg total) by mouth 2 (two) times a day with meals 60 tablet 3 1 Active albuterol HFA (PROVENTIL HFA,VENTOLIN HFA,PROAIR HFA) 90 mcg/actuation inhaler Inhale 2 puffs every 6 (six) hours as needed for wheezing or shortness of breath Active insulin glargine (LANTUS, SEMGLEE) 100 unit/mL vial for injection Inject 60 Units under the skin nightly Active empagliflozin (JARDIANCE) 10 mg tabletIndicatio ns:type 2 diabetes mellitus Take 10 mg by mouth daily Active pantoprazole DR (PROTONIX) 40 mg EC tablet Take 40 mg by mouth daily Active atorvastatin (LIPITOR) 40 mg tablet Take 1 tablet (40 mg total) by mouth daily 30 tablet 2 Active levETIRAcetam (KEPPRA) 1,000 mg tablet Take 1 tablet (1,000 mg total) by mouth 2 (two) times a day 60 tablet 11 2 Active Active Problems Problem Noted Date Diagnosed Date Diagnosis unknown 08/19/2021 Cerebrovascular accident (CV A) due to embolism of left middle cerebral artery 08/04/2021 Cerebrovascular accident (CV A) due to embolism of posterior cerebral artery with infarctions of both occipital lobes 07/30/2021 Blurry vision 07/29/2021 CVA, old, disturbances of vision 07/28/2021 ST elevation myocardial infarction (STEMI) 05/01 Overview (05/01/2021): Added automatically from request for surgery [id number] Cerebrovascular accident (CVA) Social History Tobacco Use Types Packs/Day Years Used Date Smoking Tobacco: Former Cigarettes 1 40 Smokeless Tobacco: Never Tobacco Cessation:Ready to Q uit: Yes; Counseling Given: Yes Comments:Stop smoking 04/2021 after [place] Alcohol Use Standard Drinks/Week Comments No 0 [...] on file Legal Sex Male 11:30 PM AMMUNITION SUPERVISOR Gender Identity Not on file Sexual Orientation Not on file Last Filed Vital Signs Vital Sign Reading Time Taken Comments Blood Pressure 129/84 09/15/2021 12:18 PM CDT Pulse 80 09/15/2021 12:18 PM CDT Temperature 36.6 ??C (97.8 ??F) 08/21/2021 6:00 AM CS T Respiratory Rate 14 09/15/2021 12:18 PM CDT Oxygen Saturation 97% 09/15/2021 12:18 PM CDT Inhaled Oxygen Concentration - - Weight 84.8 kg (187 lb) 09/15/2021 12:18 PM CDT Height 167.6 cm (5' 6 ) 09/15/2021 12:18 PM CDT Body Mass Index 30.18 09/15/2021 12:18 PM CDT Plan of Treatment Not on file Medical Devices Implanted Type Area Director Of Education Device Identifier Shelf Expiration Date Model / Serial / Lot [employer] Cardiovascular [employer] [id number] Sensation Plus Statlock 8fr 17.4mm .027in 6in 258mm Fiber Optic - [id number] Implanted:Qty: 1 on 05/01/2021 [facility] [employer] 08/14/2023 [id number] / / [id number] Procedures Procedure Name Priority Date/Time Associated Diagnosis Comments HEPATITIS PANEL, ACUTE Routine 05/24/2021 3:48 AM AMMUNITION SUPERVISOR from Last 3 Months or Most Recently Relevant to Health Maintenance Results * Hepatitis panel, acute (05/24/2021 3:48 AM AMMUNITION SUPERVISOR) Hep A IgM Nonreactive Nonreactive [facility] Comment: Interpretive Data: If Hep A IgM Ab is reported as Equivocal, a new sample should be drawn in two weeks for testing. Current interpretive data was last revised on 19. Hep B core IgM Nonreactive Nonreactive [facility] Comment: Interpretive Data If HepB Core IgM Ab is reported as Equivocal, a new sample should be drawn in two weeks for testing. Current interpretive data was last revised on 19. Hep C Ab Nonreactive Nonreactive [facility] Comment: Interpretive Data Nonreactive: Antibodies to HCV not detected. Does NOT exclude the possibility of recent exposure to HCV. Equivocal: Equivocal for HCV antibodies. Supplemental molecular testing will be automatically performed to determine infection status in accordance with current CDC screening recommendations. ?? Reactive: Positive for HCV antibodies. ??This may represent current or past HCV infection. Supplemental molecular testing will be automatically performed to determine ??current infection status in accordance with current CDC screening recommendations. Interpretive data was last revised on 2019. HepBsAg Nonreactive Nonreactive [facility] Blood 05/24/2021 3:48 AM AMMUNITION SUPERVISOR 05/24/2021 4:16 AM AMMUNITION SUPERVISOR us Stephen Melgar MD LAB MICROBIOLOGY - GENERAL FAVIO KAUR Final Result [facility] [id number] Department [place] [address] from Last 3 Months or Most Recently Relevant to Health Maintenance Insurance PLAN HEIDY ALVAREZ [id number] PLAN PLAN Advance Directives For more information, please contact: [phone] * Full Code (Latest Code Status on File) Date Activated Date Inactivated Comments 08/19/2021 4:45 PM 08/21/2021 7:26 PM * Full Code Date Activated Date Inactivated Comments 07/29/2021 4:33 AM 07/30/2021 9:59 PM * Full Code Date Activated Date Inactivated Comments 05/09/2021 11:04 AM 06/03/2021 7:39 PM * Full Code Date Activated Date Inactivated Comments 05/01/2021 10:48 PM 05/08/2021 10:11 AM Care Teams Java Support Engineer Relationship Specialty Start Date End Date Unknown, Notinfile PCP - General 05/01/21 [place] [address] [address] [place] [address] Surgeon Cardiothoracic Surgery 05/01/21 [place] [address] [address] [facility] [address] [place] [address] Referring Physician Cardiovascular Disease 06/03/21 Miscellaneous, Not In File 07/30/21 Humphrey Manriquez MD [address] [address] Consulting Physician Neurology 07/30/21
--- OUTSIDE RECORDS SUMMARY | 2024-06-21 19:50 | XMS_ITS | Encounter Summary ---
Author Organization [facility] Address [address] [place] [address] Phone Care Team Providers Care Cook Jelly Name Role Phone Unknown, Notinfile Primary Care Provider Unavail able Salbador Granados MD Unavailable [phone] Rubin Clayton MD Unavailable Encounter Details Date Type Department Care Team (Late st Contact Info) Description 06/16/2021 2:00 PM HAND BASEBALL SEWER Office Visit [facility] Surgery [id number] [place] [address] [address] [place] [address] Salbador Granados MD [address] [place] [address] [address] [place] [id number] Follow-up examination following surgery (Primary Dx) Social History Tobacco Use Types Packs/Day Years Used Date Smoking Tobacco: Every Day Cigarettes 1 40 Comments:Smoking History Pac ks/day: 1 Packs Alcohol Use Standard Drinks/Week Comments No 0 (1 standard drink = 0.6 oz pur e alcohol) AUDIT-C Answer Date Recorded Q1: How often do you have a drink containing alc ohol? Never 06/01/2021 Average Number of Drinks Not on file 021 Q3: How often do you have si x or more drinks on one occasion? Never 06/01/2021 Sex and Gender Information Value Date Recorded Sex Assigned at Not on file Legal Sex Male 11:30 PM HAND BASEBALL SEWER Gender Identity Not on file Sexual Orientation Not on file documented as of this encounter Last Filed Vital Signs Vital Sign Reading Time Taken Comments Blood Pressure 115/83 06/16/2021 2:37 PM HAND BASEBALL SEWER Pulse 98 06/16/2021 2:37 PM HAND BASEBALL SEWER Temperature - - Respiratory Rate - - Oxygen Saturation - - Inhaled Oxygen Concentration - - Weight 77.1 kg (170 lb) 06/16/2021 2:37 PM HAND BASEBALL SEWER Height - - Body Mass Index 25.09 05/25/2021 5:55 PM HAND BASEBALL SEWER documented in this encounter Progress Notes * Eleonora Duarte, EFREN - 06/16/2021 2:00 PM CST Cardiothoracic Surgery Office Visit Baldev Qiu 1960 -Reason for Visit: Post-op visit -Date of Surgical Procedure: 05/04/2021 -Surgical Procedure: Coronary artery bypass grafting x4, placement of left QUINN to the LAD,??saphenous vein graft to the??diagonal artery and obtuse marginal??in a sequential fashion,??saphenous vein graft to the PDA Doctors: Malik Clayton Interval History: Mr. Qiu presents today for one month follow up from CABG x4 performed by Dr. Granados. Postoperatively he developed Covid-19 infection and had prolonged hospitalization due to this and was discharged home on 06/03/21. Since being home Mr. Qiu reports feeling much better and denies any hospitalizations. He denies significant shortness of breath but continues to have a mild occasional cough. He has mild, brief bilateral shoulder pain with certain movements which is well controlled with PRN Tylenol. His sternal incision appears well healed and his sternum is stable with cough.He does have steri strips remaining on his RLE SVG incisions which I removed today. There is a small ~3mm open area on the upper incision which I cleansed with Betadine and left open to air. I provided him with Betadine swabs and instructed him to paint this area daily after showering. We discussedall of his current medications and Mr. Qiu is unsure about his diabetes regimen-states he believeshe's taking 60units of Lantus nightly but has been unable to check his blood sugars at home due to not having test strips. I advised him to make an appointment with his PCP within the next week regarding this, and said that I would provide a prescription for new testing strips if he let me know what kind of device he has at home. He has also been taking both Midodrine and Coreg-his blood pressureis stable in the office today. HOME MEDICATIONS : aspirin 81 mg enteric coated tablet carvediloL (COREG) 3.125 mg tablet clopidogreL (PLAVIX) 75 mg tablet fenofibrate (TRIGLIDE) 160 mg tablet guaiFENesin (ROBITUSSIN) syrup 100 mg/5 mL insulin glargine (LANTUS) 100 unit/mL cartridge midodrine (PROAMATINE) [address] (PROTONIX) 40 mg EC tablet pravastatin (PRAVACHOL) 80 mg tablet senna-docusate (PERICOLACE) 8.6-50 mg sodium bicarbonate 650 mg tablet albuterol HFA (PROVENTIL HFA,VENTOLIN HFA,PROAIR HFA) 90 mcg/actuation inhaler dapagliflozin (FARXIGA) 10 mg tablet glimepiride (AMARYL) 2 mg tablet phenazopyridine (PYRIDIUM) 100 mg tablet Allergies Allergen Reactions ? ? Metformin Nausea & Vomiting ??? Metoclopramide Vital Signs: Vitals BP 115/83 (BP Location: Left arm, Patient Position: Sitting) Pulse 98 Wt 77.1 kg (170 lb) BMI 25.09 kg/m?? Physical Exam Vitals reviewed. Constitutional: Appearance: Normal appearance. HENT: Head: Normocephalic. Nose: Nose normal. Eyes: Pupils: Pupils are equal, round, and reactive to light. Cardiovascular: Rate and Rhythm: Normal rate and regular rhythm. Pulmonary: Effort: Pulmonary effort is normal. Breath sounds: Normal breath sounds. Abdominal: Palpations: Abdomen is soft. Musculoskeletal: Cervical back: Normal range of motion. Right lower leg: No edema. Left lower leg: No edema. Skin: General: Skin is warm and dry. Comments: Sternum well healed. R SVG site with ~3mm open area, no drainage Neurological: General: No focal deficit present. Mental Status: He is alert and oriented to person, place, and time. Psychiatric: Mood and Affect: Mood normal. Behavior: Behavior normal. Tests Ordered: None Treatment Plan: Overall Mr. Qiu has done well in the postoperative setting. His sternal incisions appears well healed. We can liberalize his lifting restriction by increasing 5lbs per week, and he may drive. He should Betadine his right leg incision daily. He should follow up with his cardiologistin the next 1-2 weeks for further medication management-I provided him with the phone number to call and make an appointment today. He can stop this Midodrine and continue Coreg 3.125mg BID, continueholding POLINA-I for now. Continue ASA, Plavix, Pravastatin. Follow up with Dr. Granados for one final check in 3 months. Follow up with PCP in 1-2 weeks for blood glucose management. Varsha Crowder NP 13:01 PM BASEBALL SEWER documented in this encounter Plan of Treatment Not on file documented as of this encounter Visit Diagnoses Diagnosis Follow-up examination following surgery- Primary documented in this encounter Additional Health Concerns Infection Onset Date Last Indicated Resolved Time COVID19 05/19/2021 05/19/2021 06/17/2021 3:06 AM HAND BASEBALL SEWER documented as of this encounter Care Teams Cook Jelly Relationship Specialty Start Date End Date Unknown, Notinfile PCP - General 05/01/21 [place] [id number] [address] [facility] [address] [address] Surgeon Cardiothoracic Surgery 05/01/21 [place] [id number] [address] [address] Referring Physician Cardiovascular Disease 06/03/21 documented as of this encounter
--- OUTSIDE RECORDS SUMMARY | 2024-06-21 19:50 | XMS_ITS | Clinical Summary ---
Author Organization [facility] [address] [facility] Address [address] [place] [address] Care Team Providers Care Gear Hobber Operator Name Role Phone Unknown, Notinfile Primary Care Provider Unavail able Salbador Granados MD Unavailable [phone] Rubin Clayton MD Unavailable Miscellaneous, Not In File Unavailable Unava ilable Humphrey Manriquez MD Unavailable [phone] Allergies Active Allergy Reactions Criticality Noted Date [...] (05/01/2021): Added automatically from request for surgery [id number] Cerebrovascular accident (CVA) Surgical History Surgery Date Site/Laterality Comments CARDIAC STENT PLACEMENT CORONARY ARTERY BYPASS GRAFT 05/20/2021 - 06/19/2021 Four-vessel [facility] Medical History Medical History Date Comments Hypertension Hypertension Chronic obstructive pulmonary disease (HCC) COPD Coronary artery disease ST elevation (STEMI) myocard ial infarction (HCC) 05/01/2021 DM type 2 (diabetes mellitus, type 2) (HCC) HLD (hyperlipidemia) Tobacco abuse, in remission In r emission since 04/2021 Family History Medical History Relation Name Comments COPD Father Relation Name Status Comments Father Social History Tobacco Use Types Packs/Day Years Used Date Smoking Tobacco: Former Cigarettes 1 40 Smokeless Tobacco: Never Tobacco Cessation:Ready to Q uit: Yes; Counseling Given: Yes Comments:Stop smoking 04/2021 after [place] Alcohol Use Standard Drinks/Week Comments No 0 [...] on file 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 Gender Identity Not on file Sexual Orientation Not on file Obstetrics History Last Filed Vital Signs Vital Sign Reading [...] 09/15/2021 12:18 PM CDT Plan of Treatment Health Maintenance Due Date Last Done Comments Colon Cancer Screening-Colonoscopy 1960 Prostate Cancer Screening-PSA 1960 Hepatitis B Screening 1979 Regular Well Visit/Exam 18-64 1979 Zoster Vaccine (1 of 2) 2011 Pneumococcal vaccine <65 (2 of 2 - PCV) 06/19/2016 1 DTaP/Tdap/Td Vaccine (2 - Td or Tdap) 06/20/202006/2010 Depression Screening 08/19/2022 08/19/2021, 08/20/19 22 Influenza Vaccine (#1) 2024 Hepatitis C Screening Completed 05/24/2021 Medical Devices Implanted Type Area Finish Specialist Device Identifier Shelf Expiration Date Model / Serial / Lot [employer] Cardiovascular Brain Parade [id number] Sensation Plus Statlock 8fr 17.4mm .027in 6in 258mm Fiber Optic - [id number] Implanted:Qty: 1 on 05/01/2021 by Rubin Clayton MD at [facility] 08/14/2023 [id number] / / [id number] Procedures Procedure Name Priority Date/Time Associated Diagnosis Comments HEPATITIS PANEL, ACUTE Routine 05/24/2021 3:48 AM 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 Current interpretive data was last revised on 19. Hep B core IgM Nonreactive Nonreactive [facility] Comment: Interpretive Data If HepB Core IgM Ab is reported as Equivocal, a new sample should be drawn in two weeks for testing. Current interpretive data was last revised on 19. Hep C Ab Nonreactive Nonreactive [facility] Comment: Interpretive Data Nonreactive: Antibodies to HCV [...] last revised on 2019. HepBsAg Nonreactive Nonreactive [facility] Blood 05/24/2021 3:48 AM GENERAL UTILITY MACHINE OPERATOR 05/24/2021 4:16 AM GENERAL UTILITY MACHINE OPERATOR Stephen Melgra MD LAB MICROBIOLOGY - GENERAL FAVIO KAUR Final Result [facility] [address] Department [place] [address] from Last 3 Months or Most Recently Relevant to Health Maintenance Insurance [facility] [employer] PLAN HEIDY ALVAREZ [facility] Advance Directives For more information, please contact: [phone] * Full Code (Latest Code Status on File) Date Activated Date Inactivated Comments 08/19/2021 4:45 PM 08/21/2021 7:26 PM * Full Code Date Activated Date Inactivated Comments 07/29/2021 4:33 AM 07/30/2021 9:59 PM * Full Code Date Activated Date Inactivated Comments 05/09/2021 11:04 AM 06/03/2021 7:39 PM * Full Code Date Activated Date Inactivated Comments 05/01/2021 10:48 PM 05/08/2021 10:11 AM Care Teams Gear Hobber Operator Relationship Specialty Start Date End Date Unknown, Notinfile PCP - General 05/01/21 [place] [address] [address] [place] [address] Surgeon Cardiothoracic Surgery 05/01/21 [place] [address] [address] [place] [address] Referring Physician Cardiovascular Disease 06/03/21 Miscellaneous, Not In File 07/30/21 Humphrey Manriquez MD [address] [facility] [address] [place] [address] Consulting Physician Neurology 07/30/21
--- OUTSIDE RECORDS SUMMARY | 2024-06-21 19:50 | XMS_ITS | Encounter Summary ---
Author Organization [facility] Healthcare Address [address] [place] [address] Care Team Providers Care Tail Edger Name Role Phone Unknown, Notinfile Primary Care Provider Unavail able Rhina Granados MD Unavailable [phone] Rubin Clayton MD Unavailable Miscellaneous, Not In File Unavailable Unava ilable Juliane Landis MD Unavailable [phone] Reason for Visit * Reason Comments Loss of Vision * Auth/Cert Specialty Diagnoses / Procedures Referred By Contjuarez t Referred To Contact Diagnoses CVA, old, disturbances of vision Blurry vision Procedures N/A Referral ID Status Reason Start Date Expiration Date Visits Re quested Visits Authorized [id number] 1 1 Encounter Details Date Type Department Care Team (Late st Contact Info) Description 07/28/2021 6:09 PM LOG MANAGER - 07/30/2021 5:59 PM LOG MANAGER Emergency [facility] [address] [place] [address] Shailesh Harper MD [address] [place] [address] Sunil Perez MD [address] [facility] [place] [address] Ras Pierson MD [address] [facility] [place] [address] Cerebrovascular accident (CVA), unspecified mechanism (HCC) (Primary Dx) Discharge Disposition: Discharge to home or self care Social History Tobacco Use Types Packs/Day Years Used Date Smoking Tobacco: Former Cigarettes 1 40 Smokeless Tobacco: Never Comments:Stop smoking after NH Alcohol Use Standard Drinks/Week Comments No 0 [...] on file Legal Sex Male 11:30 PM LOG MANAGER Gender Identity Not on file Sexual Orientation Not on file documented as of this encounter Last Filed Vital Signs Vital Sign Reading Time Taken Comments Blood Pressure 130/73 07/30/2021 4:15 PM LOG MANAGER Pulse 86 07/30/2021 4:15 PM LOG MANAGER Temperature 36.3 ??C (97.4 ??F) 07/30/2021 4:[address] Respiratory Rate 20 07/30/2021 4:15 PM LOG MANAGER Oxygen Saturation 100% 07/30/2021 4:15 PM LOG MANAGER Inhaled Oxygen Concentration - - Weight 86.2 kg (190 lb) 07/28/2021 3:38 PM LOG MANAGER Height 167.6 cm (5' 6 ) 07/28/2021 3:38 PM LOG MANAGER Body Mass Index 30.67 07/28/2021 3:38 PM LOG MANAGER documented in this encounter Discharge Summaries * Ras Pierson MD - 07/30/2021 5:22 PM CST Inpatient Discharge Summary BRIEF OVERVIEW Patient Name - Baldev Alvarado Patient Age - 61 yrs Patient - [id number] [facility] - [id number] Document Creation Date: 07/30/2021 Admitting Provider, : Sunil Perez MD Discharge Provider, MD: Ras Pierson MD Primary Care Physician at Discharge: Unknown, Notinfile None Treatment Team: Consulting Physician: Juliane Landis MD Admission Date: 07/28/2021 Discharge Date/time: 07/30/2021 Admission Location: [facility] LOS - LOS: 2 days DETAILS OF HOSPITAL STAY Hospital Problems/Diagnoses Principal Problem: CVA, old, disturbances of vision Active Problems: Blurry vision 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 (CMS/HCC) (HCC) Reason for Hospitalization: Vision loss Hospital Course: Patient is a 61 yo patient with an underlying cardiac history, prior smoker recently quit who presented with acute left visual field loss. Patient had a ct head at an outlying facility concerning forstroke, and presented for further care. While here, patient underwent MRI brain and MRA showing a posterior right temporal and occipital stroke in the rPCA distribution along with right parietal small acute stroke and chronic right thalamus and left pontine infarcts. MRA showed sever focal stenosis of the distal right MCA M1 segment and motion degredation. Active Issues & Recommended Plan for Follow-up: Follow up with wire machine cutter for holter Time Spent in Discharge Process: I have spent more than 35 minutes on discharge Test Results Pending at Discharge (If Blank, None Found): Operative Procedures Performed (If Blank, None Found): Other Procedures & Diagnostic Tests: ECG 12 lead Result Date: 07/29/2021 Vent Rate: 93 bpm RR Interval: 642 msec OH Interval: 190 msec QRS Duration: 104 msec QT Interval: 355 msec QTC Interval: 406 msec P-R-T [place]: 68 - 99 - 103 degrees SINUS RHYTHM BORDERLINE RIGHT AXIS DEVIATION ANTEROSEPTAL MYOCARDIAL INFARCTION , probably old; clinical correlation advised ABNORMAL ECG Electronically Signed By: Laly Sánchez MD, [facility] XR Chest Pa Lateral 2 Vw Result Date: 07/29/2021 EXAMINATION: 2 view chest radiograph Comparison made to 05/31/2021. Sternotomy wires are midline. There are multiple surgical clips within the mediastinum. Multifocal airspace opacities as seen on chest radiograph from May 2021 have resolved. No new areas of consolidation. There is no pleural effusion. No pneumothorax. Changes of emphysema are noted in the lung apices. Stable cardiomediastinal silhouette. Electronically signed by: Ailyn German M.D. CT Outside Consult Result Date: 07/29/2021 CT OUTSIDE CONSULT 07/28/2021 7:35 PM CLINICAL INDICATION: Stroke. COMPARISON:None. TECHNIQUE: CT of the head was performed without contrast. Coronal and sagittal reformatted images were generated. FINDINGS: CEREBRAL PARENCHYMA: Loss of thorne-white white differentiation in the right temporal-occipitallobe suggestive of evolving infarct in the distribution of the right posterior cerebral artery. Small bilateral basal ganglia hypodensities may represent chronic lacunar infarcts. No intracranial hemorrhage, mass or mass effect. CSF SPACES: Mildly dilated ventricles. Cortical sulci normal in size and configuration. WHITE MATTER: Mild subcortical and periventricular hypodensities likely represent microvascular ischemic white matter change. VASCULAR STRUCTURES: Calcification along the carotid siphons and intracranial vertebral arteries. POSTERIOR FOSSA: Small round hypodensity along the left side of the [place]ley (axial image 11); infarct not excluded. Otherwise, no acute abnormality identified inthe posterior fossa. SELLA AND SUPRASELLAR STRUCTURES: Normal. BONES/SCALP: Calvarium intact. VISUALIZED PARANASAL SINUSES/MASTOID AIR CELLS: Clear. ORBITS: Normal. OTHER: None. 1. Loss of thorne-white differentiation in the right temporal-occipital lobe suggestive of evolving infarct. 2. Small bilateral hypodensities may represent chronic lacunar infarcts. 3. Possible small left pontine infarct. 4. No intracranial hemorrhage. For the purposes of quality systems manager, this study was initially interpreted by teleradiology. There is no significant discrepancy. Electronically signed by: Wally Perez M.D. CT Outside Reference Result Date: 07/28/2021 This order has been auto-finalized and does not contain a result. MRA Head WO Contrast Result Date: 07/30/2021 MRA HEAD WITHOUT CONTRAST 07/29/2021. CLINICAL INDICATION: Stroke, follow up. COMPARISON:MRI brain dated 07/29/2021. TECHNIQUE: MR arteriography of the head was performed without contrast utilizing time of flight technique. 3D/MIP reformatted images were generated. Study is degraded by motion FINDINGS: The distal internal carotid arteries are patent. The anterior cerebral arteries are patent. Theleft MCA M1 segment is patent. The proximal left MCA M2 segments are patent. There is a small focalarea of severe stenosis along the distal right MCA M1 segment. The proximal right MCA M2 segments are patent. The distal vertebral arteries are patent. The basilar artery is patent. Both posterior cerebral arteries arise from the basilar artery. The proximal segments of the posterior cerebral arteries are patent. Evaluation of the P4 segments is limited. No aneurysm or vascular malformation is identified. 1. Motion degraded exam. 2. No large vessel occlusion. 3. Small focal severe stenosis along the distal right MCA M1 segment. 4. Evaluation of the distal posterior cerebral arteries is limited by motion. Electronically signed by: Wally Perez M.D. MRI Brain WO Contrast Result Date: 07/30/2021 MRI BRAIN WO CONTRAST 07/29/2021 10:35 PM CLINICAL INDICATION: Stroke, follow up. COMPARISON: CT headdated 07/27/2021. TECHNIQUE: Multiplanar multisequence MRI of the brain was performed without contrast. Portions of the study are degraded by motion. FINDINGS: CEREBRAL PARENCHYMA: Acute infarct in the posterior right temporal and occipital lobes in the distribution of the right HEALTH SCIENCES PROGRAM COORDINATOR. Small acute infarct in the right parietal lobe. No intracranial hemorrhage or midline shift. Punctate right thalamus chronic infarct. CSF SPACES: Mildly dilated ventricles and cortical sulci. Mild mass effect on the trigone of the right lateral ventricle, likely from adjacent vasogenic edema. Basal cisterns patent. WHITE MATTER: Mild subcortical and periventricular FLAIR/T2 signal intensities likely represent microvascular ischemic white matter change. VASCULAR STRUCTURES: Preservation of normal flow voids inthe major intracranial vessels. POSTERIOR FOSSA: Left pontine chronic infarct. No acute findings inthe posterior fossa. SELLA AND SUPRASELLAR STRUCTURES: Normal. BONES/SCALP: Normal. VISUALIZED PARAN [place]ARA SINUSES/MASTOID AIR CELLS: Minimal scattered paranasal sinus mucosal thickening. Mastoid air cells clear. ORBITS: Visualized orbits are normal. OTHER: None. 1. Posterior right temporal and occipital lobe acute infarct in the distribution of the right HEALTH SCIENCES PROGRAM COORDINATOR. 2. Right parietal small acute infarct. 3. 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 4. Mild microvascular ischemic white matter change. Electronically signed by: Wally Perez M.D. Echo:Results for orders placed during the hospital encounter of 05/01/21 Transthoracic Echo Complete W Doppler/CF 05/17/2021 05/18/2021 8:55 AM (Final) Status: Normal 05/18/2021 8:55 [place] [address] Echocardiogram Report Patient Name: BALDEV ALVARADO W : 1960 Study Date: 05/17/2021 3:34:31 PM Gender: M Tech: NA Location: [id number] Ref Provider: RHINA GRANADOSHeight(Cm): 175 BSA: 1.96 Weight(Kg): 79 Heart Rate: 82 BP: 92/61 Quality: Good Order Provider: RHINA GRANADOS PROCEDURES: Echocardiographic Report: Transthoracic echocardiogram with complete 2D, M-Mode, and color Doppler examination. INDICATIONS: F/U CABG. Measurements: 2D/M Mode Doppler Measurement Value Normal Range Measurement Value Normal Range EF Teich 2D 32.4 [ 55.0 - 70.0 ] percent CHRISTINA Vmax 2.58 [ 2.00 - 4.00 ] cm2 EF Mod 4C 36.6 [ 55.0 - 70.0 ] percent AV Mean PG 2 [ 2 - 4 ] mmHg LVIDd 2D 4.61 [ 4.20 - 5.90 ] cm AV Peak Ramesh 1.05 [ 1.00 - 1.70 ] m/s LVIDs 2D 3.91 [ 2.30 - 3.90 ] cm AV VTI 18.72 cm LVPWd 2D 0.98 [ 0.60 - 1.00 ] cm LVOT Diam 2.02 [ 1.70 - 2.10 ] cm IVSd 2D 0.83 [ 0.60 - 0.90 ] cm LVOT Peak Ramesh 0.85 [ 0.70 - 1.10 ] m/s ACS MM 2.05 [ 1.50 - 2.60 ] cm LVOT VTI 13.90 [ 20.00 - 30.00 ] cm MV E Peak Ramesh 0.51 [ 0.60 - 1.30 ] m/s MV A Peak Ramesh 0.86 [ 1.00 - 1.20 ] m/s MV PHT 55 [ 20 - 100 ] msec MV Decel Time 181 [ 104 - 258 ] msec PV Peak Ramesh 0.96 [ 0.40 - 0.80 ] m/s TR Peak Ramesh 2.50 [ 1.00 - 2.80 ] m/s TR Peak PG 25 mmHg RVSP 28.00 [ 10.00 - 36.00 ] mmHg E' 0.05 E/E' 9.00 Measurement Value Normal Range Measurement Value Normal Range 2D/M Mode Doppler - FINDINGS: Atrial Septum: The atrial septum is not well visualized. Left Ventricle: Normal left ventricular size. Left ventricle not well visualized. Consider repeat echo with contrast for better visualization of endocardial border, and measurement of EF. Mild concentric left ventricular hypertrophy. Impaired diastolic relaxation Grade I. Ejection fraction is visually estimated at 35-40 %. Left Atrium: Left atrium is not well visualized. Right Ventricle: Normal right ventricular systolic function. Right Atrium: Right atrium is not well visualized. Aortic Valve: Aortic cusps appear mildly sclerotic. No evidence of hemodynamically significant aortic stenosis by Doppler. No aortic regurgitation. Mitral Valve: Normal structure of the mitral valve. Trivial regurgitation of the mitral valve. Pulmonic Valve: Pulmonic valve not well visualized. Tricuspid Valve: Tricuspid valve not well visualized. Estimated peak RVSP is 25 mmHg. Trivial regurgitation in the tricuspid valve. Pericardium: Normal pericardium with no significant pericardial effusion. Aorta: Aortic root is mildly dilated at 3.7cm. IVC: Normal size and normal respiratory collapse consistent with normal right atrial pressure (<5 mmHg). CONCLUSIONS: Technically difficult study with limited views. Normal left ventricular size. Left ventricle not well visualized. Consider repeat echo with contrast for better visualization of endocardial border, and measurement of EF. Mild concentric left ventricular hypertrophy. Impaired diastolic relaxation Grade I. Ejection fraction is visually estimated at 35-40 %. Normal structure of the mitral valve. Trivial regurgitation of the mitral valve. Tricuspid valve not well visualized. Estimated peak RVSP is 25 mmHg. Trivial regurgitation in the tricuspid valve. Electronically Signed By: Rylee Brito DO, FACJustyna, FAISAL ESPARZA 2021-05-18 08:55:09 LOG MANAGER CC: CC: CC: Recent Labs: Recent Labs Lab Units 07/28/21 170 WBC K/cumm 15.4* HEMOGLOBIN g/dL 13.2 HEMATOCRIT % 39.3 PLATELETS K/cumm 394 Recent Labs Lab Units 07/28/21 1707 WBC K/cumm 15.4* HEMOGLOBIN g/dL 13.2 HEMATOCRIT % 39.3 PLATELETS K/cumm 394 NEUTROS PCT % 73.0 LYMPHS PCT % 17.1 MONOS PCT % 8.6 EOS PCT % 0.5 Recent Labs Lab Units 07/30/21 1702 07/29/21 0814 07/28/21 1707 SODIUM mmol/L -- -- 132* POTASSIUM PLASMA mmol/L -- -- 3.9 CHLORIDE mmol/L -- -- 102 CO2 mmol/L -- -- 18* BUN SERUM mg/dL -- -- 14 CREATININE mg/dL -- -- 0.70* [id number] mL/min/1.73 m2 -- -- 105 GLUCOSE mg/dL -- -- 207* POC GLUCOSE MONITOR mg/dL 118 < > -- CALCIUM mg/dL -- -- 9.3 ALBUMIN g/dL -- -- 4.5 < > = values in this interval not displayed. Recent Labs Lab Units 07/30/21 1702 07/30/21 1208 07/30/21 0611 07/29/21 0807/28/211706 SODIUM mmol/L -- -- -- -- 132* POTASSIUM PLASMA mmol/L -- -- -- -- 3.9 CHLORIDE mmol/L -- -- -- -- 102 CO2 mmol/L -- -- -- -- 18* ANIONGAP mmol/L -- -- -- -- 12 GLUCOSE mg/dL -- -- -- -- 207* POC GLUCOSE MONITOR mg/dL 118 102 97 < > -- BUN SERUM mg/dL -- -- -- -- 14 CREATININE mg/dL -- -- -- -- 0.70* CALCIUM mg/dL -- -- -- -- 9.3 ALBUMIN g/dL -- -- -- -- 4.5 ALK PHOS Units/L -- -- -- -- 95 ALT Units/L -- -- -- -- 17 AST Units/L -- -- -- -- 26 BILIRUBIN TOTAL mg/dL -- -- -- -- 0.3 < > = values in this interval not displayed. Recent Labs Lab Units 07/28/211706 ALK PHOS Units/L 95 BILIRUBIN TOTAL mg/dL 0.3 TOTAL PROTEIN g/dL 7.6 ALT Units/L 17 AST Units/L 26 Lab Results Component Value Date GLUCOSE 118 07/30/2021 GLUCOSE 102 07/30/2021 GLUCOSE 97 07/30/2021 Discharge Details Physical Exam at Discharge: Discharge Condition: fair Pulse: 86 Resp: 20 BP: 130/73 Temp: 36.3 ??C (97.4 ??F) Weight: 86.2 kg (190 lb) Pertinent Exam Findings at Discharge ongoing visual disturbances Discharge Disposition: acute rehab offered and declined. Due to his insurance, no other option is available. This was discussed with the patient Code Status at Discharge: Full Code Discharge Orders General Precautions: Precautions: None Nutritional Status and in-house recommendations: Dietary Orders (From admission, onward) Start Ordered 07/29/21 2100 Bedtime snack At bedtime Comments: If bedtime BG is less than 100mg/dl, give patient a 15 gram carbohydrate snack. 07/29/21 0516 07/29/21 0745 Adult Diet Restricted; Low Fat, Low Chol, Low Na; Consistent Carbohydrate Diet effective now Question Answer Comment ([facility]) Diet type Restricted Fat / Sodium Restriction: Low Fat, Low Chol, Low Na Diabetic: Consistent Carbohydrate 07/29/21 0746 Allergies: Metformin and Metoclopramide Discharge Medications: Your medication list START taking these medications Instructions Last Dose Given Next Dose Due atorvastatin 40 mg tablet Commonly known as: LIPITOR Start taking on: July 31, 2021 Take 1 tablet (40 mg total) by mouth daily traMADoL 50 mg tablet Commonly known as: ULTRAM Take 1 tablet (50 mg total) by mouth 4 (four) times a day as needed for pain for up to 10 doses CONTINUE taking these medications Instructions Last Dose Given Next Dose Due albuterol HFA 90 mcg/actuation inhaler Commonly known as: PROVENTIL HFA,VENTOLIN HFA,PROAIR HFA aspirin 81 mg enteric coated tablet Take 1 tablet (81 mg total) by mouth daily carvediloL 3.125 mg tablet Commonly known as: COREG Take 1 tablet (3.125 mg total) by mouth 2 (two) times a day with meals clopidogreL 75 mg tablet Commonly known as: PLAVIX Take 1 tablet (75 mg total) by mouth daily empagliflozin 10 mg tablet Commonly known as: JARDIANCE insulin glargine 100 unit/mL vial for injection Commonly known as: LANTUS, SEMGLEE pantoprazole DR 40 mg EC tablet Commonly known as: PROTONIX STOP taking these medications fenofibrate nanocrystallized 160 mg tablet Commonly known as: TRIGLIDE pravastatin 80 mg tablet Commonly known as: PRAVACHOL Where to Get Your Medications These medications were sent to [address] - [facility] [address] [facility], [facility] [address] ?? atorvastatin 40 mg tablet ?? traMADoL 50 mg tablet Outpatient Follow-Up: Future Appointments Date Time Provider Department Center 09/15/2021 11:45 AM Rhina Granados MD [facility] Anticoagulation Indication: INR: No results found for requested labs within last 720 hours. Warfarin Administrations (last 168 hours) None Oxygen Status O2 Therapy for the past 12 hrs: O2 Therapy 07/30/21 0804 None (Room air) Wound Care Instructions Patient Lines/Drains/Airways Status Active Wound / Pressure ulcer / Jerry / Negative Pressure Wound None Other Instructions Ambulatory referral to Home Health Service Line: Home Health Primary disciplines requested: Physical Therapy Secondary disciplines requested: Occupational Therapy Home Health Services: Strengenthing/ Balance Physician to follow patient's care (the person listed here will be responsible for signing ongoing orders): PCP Requested Start of Care Date: Within 2 - 3 Days I attest that I or another qualified licensed provider saw the patient 90 days prior to or 30 days post admission and this face to face encounter meets the necessary Home Health requirements. The face to face encounter occurred on (date): 07/30/2021 The encounter with the patient was in whole, or in part, for the following medical condition, whichis the primary reason for home health care. (List medical condition): cva I certify that, based on my findings, the following services are medically necessary skilled home health services: Strengenthing/ Balance Clinical findings that support the need for home care: Medical condition requiring skilled assessment/education I certify that my clinical findings support patient's homebound status. Homebound criteria met because: Poor endurance Active LDAs (If Blank, None Found): END OF ORDERS Patient Emergency Contact: Primary Emergency Contact: Geno Alvarado, Ezequiel Immunization Status at Discharge There is no immunization history on file for this patient. Ras Pierson MD MANAGER documented in this encounter Discharge Instructions * Attachments The following attachments cannot be sent through Care Everywhere. * Meal Planning with the Plate Method (General Information) (Algerian) documented in this encounter Medications at Time [...] Inject 60 Units under the skin nightly pantoprazole DR (PROTONIX) 40 mg EC tablet Take 40 mg by mouth daily clopidogreL (PLAVIX) 75 mg tablet Take 1 tablet (75 mg total) by mouth daily 30 tablet 3 06/04/2021 traMADoL (ULTRAM) 50 mg tablet Take 1 tablet (50 mg total) by mouth 4 (four) times a day as needed for pain for up to 10 doses 10 tablet 07/30/2021 2 documented as of this encounter Ordered Prescriptions Prescription Sig Dispense Quantity Refills Last Filled Start Date End Date atorvastatin (LIPITOR) 40 mg tablet Take 1 tablet (40 mg total) by mouth daily 30 tablet 07/31/2021 traMADoL (ULTRAM) 50 mg tablet Take 1 tablet (50 mg total) by mouth 4 (four) times a day as needed for pain for up to 10 doses 10 tablet 07/30/2021 08/19/2021 traMADoL (ULTRAM) 50 mg tablet Take 1 tablet (50 mg total) by mouth 4 (four) times a day as needed for pain for up to 10 doses 10 tablet 07/30/2021 07/30/2021 documented in this encounter Discharge Disposition Disposition Code Departure Means Destination Discharge to home or self care documented in this encounter Progress Notes * Lanie Fierro, OT - 07/30/2021 8:30 AM CST Occupational Therapy Evaluation 07/30/21 0830 General Chart Reviewed Yes Session Type Evaluation OT Received On 07/30/21 Safe Environment Arm Band Checked;Bed Alarm placed and activated;Call Light within Reach;Session Completed Bedside;Patient found sitting in Chair;Overbed Table within Reach Subjective Agreeable to Therapy Additional Pertinent History 61 yo presented to OSH with vision changes, [place], right occipital CVA; left AMA while awaiting transfer here; went home and fell so family brought him here; Head CT reveals: Loss of thorne-white differentiation in the right temporal-occipital lobe suggestive of evolving infarct. 2. Small bilateral hypodensities may represent chronic lacunar infarcts. 3. Possible small left pontine infarct. Hx of including but not limited to covid 06/17, DM, HLD, HTN, CAD, cardiac stent,STEMI, tobacco abuse, COPD Treatment Duration 53 Minutes Family/Caregiver Present No Occupational Therapy-Patient Goal Get back to health. 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 Leisure (guitar) Fall within the last 6 months No Grooming Grooming: Where assessed Standing at sink Grooming: Level of assistance Contact Guard Assist Grooming: Assistance with Wash/dry hands;Safety Bathing Bathing: Where assessed (declines) LE Dressing LE Dressing: Where assessed Standing;Sitting;Edge of bed LE Dressing: Level of assistance Contact Guard Assist (pants, socks SBA) LE Dressing: Assistance with Verbal cueing;Supervision/safety;Pull up over hips;Safety Toileting Toileting: Where assessed Toilet Toileting: Level of assistance Contact Guard Assist Toileting: Assistance with Clothing management down;Clothing management up Pain Assessment Pain Score 0 - No pain Clinical Progression Not changed Vision - Complex Assessment Visual Griffiths Difficulty detecting stimulus to left Visual Screen Results Left homonymous hemianopsia Cognition Overall Cognitive Status Impaired Arousal/Alertness Alert Memory Decreased short term memory Orientation Oriented X4 (person, place, time, situation) Following Commands Follows all commands and directions without difficulty Safety Judgment Decreased awareness of need for safety Awareness of Errors Decreased awareness of errors Insight Decreased awareness of deficits Problem Solving Assistance required to implement solutions;Assistance required to generate solutions;Assistance required to identify errors made Compliance/Behavior Easy to engage Motor Planning Motor Planning (apraxia screening passed) Coordination Fine Motor WFL Hand Preference Hand Preference Right Bed Mobility 1 Bed Mobility Comments 1 supine to sit SBA Transfer 1 Trials/Comments 1 minimal assist/CGA toilet, shower chair, ambulation to/from restroom with no device; verbal and tactile cues for navigation due to visual deficits RUE Assessment RUE Assessment (shoulder flexion 90, strength 3-) LUE Assessment LUE Assessment (shoulder flexion 90, strength 3-) Assessment Prognosis Good Problem List Decreased safe judgment during ADL;Decreased upper extremity strength;Decreased upper extremity range of motion;Decreased cognition;Decreased endurance;Decreased balance;Visual deficit;Decreased functional mobility;Decreased IADL independence;Decreased ADL independence Plan Plan If this is the last note, consider this the discharge summary;Plan of care initiated Recommendation/Plan OT Recommendation (S) Inpatient Rehab Facility OT Frequency 3-5x/wk Treatment/Interventions Balance Training;ADL/IADL retraining;Cognitive retraining;Compensatory technique education;Functional activity;Functional transfer training;Functional mobility training;Transfer training;Therapeutic activity;Strengthening;Therapeutic exercise OT Evaluation Complete Yes Education: Patient has been educated on the role of OT, safety, precautions, ADL training, and mobility training. Education completed via verbal instruction. Patient needs ongoing reinforcement Short Blessed What year is it now? 0=correct What month is it now? 0=correct Repeat this name and address after me Padilla Huddleston, [address] [place] [address] Without looking at the clock, tell me what time it is. 3=incorrect within one hour Count aloud backwards from 20-1. 0=0 errors Say the months of the year backwards in reverse order. 4=2 errors Repeat the name and address I asked you to remember. 8=4 errors Short Blessed Total Score 15 Short Blessed Comments impaired 0-4: Normal Cognition 5-9: Questionable Impairment 10 or more: Impairment Consistent with Dementia Mesulam Cancellation Test Left Omissions 30 Right Omissions 21 Total Omissions 51 Time to Complete 5:18 Organization: systematic or unsystematic Does not scan past far right Progression of search See above Mesulam Comments Impaired homar Pevely Making Test A and B Pevely Making A time to complete 3:00 with 3 errors to 7 Pevely Making B time to complete 5:00 to 3 with one error Pevely Making Comments Impaired executive functioning Apraxia screen results: Apraxia not present Multi-Disciplinary Problems (from Occupational Therapy) Active Problems Problem: OT Misc Start Date: 07/30/21 Goal Start Date Expected End Date End Date OT LTG - Mis 1 07/30/21 08/06/21 -- Goal Details: Pt to complete toilet transfer with SBA Goal Start Date Expected End Date End Date OT LTG - Mis 2 07/30/21 08/06/21 -- Goal Details: Pt to groom with SBA standing at the sink Goal Start Date Expected End Date End Date OT G - Mis 3 07/30/21 08/06/21 -- Goal Details: Pt to dress LEs with SBA Goal Start Date Expected End Date End Date OT LTG - Mis 4 07/30/21 08/06/21 -- Goal Details: Pt to bathe with SBA Goal Start Date Expected End Date End Date OT G - Mis 5 07/30/21 08/06/21 -- Goal Details: Pt to utilize compensatory strategies for visual field deficits during ADLs and functional mobility without verbal cues MANAGER * Ras Pierson MD - 07/29/2021 5:34 PM CST Patient seen after mn by colleague Neuro consulted and patient seen by their service as well Patient now agreeable to MRI Will add ativan for claustrophobia MANAGER * Monica Cesar OT - 07/29/2021 2:19 PM CST Occupational Therapy 07/29/21 1418 General OT Received On 07/29/21 Subjective Comment Pt getting into for transfer to neuro floor. Will follow. MANAGER * Maria Eugenia Jeffery, PT - 07/29/2021 12:01 PM CST Physical Therapy Evaluation 07/29/21 0909 General Chart Reviewed Yes Session Type Evaluation PT Received On 07/29/21 Safe Environment Arm Band Checked;Call Light within Reach Subjective Agreeable to Therapy Additional Pertinent History Pt admitted w/ headache. Pt had been in ER 24 hrs prior w/ blurred vision and headache and left AMA, head CT taken then showing acute or subacute right occipital lobe infarct in right posterior cerebral artery. Pt other PMHx includes CABG 4 wks ago, COPD, HTN, HLD, DM, COVID recovered, and CAD. Family/Caregiver Present No Physical Therapy-Patient Goal Return home Home Living Type of Home House Home Layout One level Home Access Level entry Bathroom Shower/Tub Tub/shower unit Bathroom Toilet Standard Bathroom Equipment Grab bars in shower/tub;Shower chair;Grab bars around toilet Home Mobility Equipment Wheeled walker;Single point cane Additional Comments Pt amb no device, pt did use ww following his CABG Prior Function Level of [place] Independent with ADLs;Independent functional transfers;Independent with homemaking with ambulation Lives With Spouse (has teenage children) Receives Help From Family Driving Yes ADL Assistance Independent Instrumental ADL (IADL) Assistance Independent Vocational/Occupation (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, 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) Fall within the last 6 months No Pain Assessment Pain Score 8 Clinical Progression Not changed Pain Interventions Medication (See MAR);RN Notified Vision - Complex Assessment Visual Griffiths Difficulty detecting stimulus to left Visual Screen Results Left homonymous peripheral visual field deficit Cognition Arousal/Alertness Alert Following Commands Follows all commands and directions without difficulty Compliance/Behavior Reluctant to participate Sensation Light Touch WFL Coordination Heel to Daley Intact Finger Nose Finger Intact Static Sitting Balance Static Sitting-Balance Support Feet supported Static Sitting-Sitting Surface Bed Static Sitting-Level of Assistance Independent Static Standing Balance Static Standing-Balance Support No upper extremity supported Static Standing-Standing Surface Floor Static Standing-Comment/# of Minutes Pt w/ GILMORE balance assessment score of 40/56 indicating need for assistive device Bed Mobility 1 Bed Mobility Comments 1 Pt supine<->sit IND from flat bed, no rail Transfer 1 Trials/Comments 1 Pt sit<->stand SBA/IND Ambulation Functional Ambulation Category 2 Ambulation 1 Ambulation Comments 1 Pt agreed to limited distance ambulation, 30' no device CGA. Pt is unsteady w/ moderate path deviation no gross LOB. RUE Strength R Shoulder Flexion 4/5 R Shoulder ABduction 4/5 LUE Strength L Shoulder ABduction 4/5 L Elbow Flexion 4/5 Strength RLE R Hip Flexion 4/5 R Knee Extension 4+/5 R Ankle Dorsiflexion 4+/5 Strength LLE L Hip Flexion 4/5 L Knee Extension 4+/5 L Ankle Dorsiflexion 4+/5 Other Comments Other PT Comments Pt Modified Sterling Scale=4.Pt does demonstrate visual deficits and gait instability. Pt states he does not want to be admitted, pt instructed to use ww once returns home. Pt would benefit from continued PT upon discharge to address balance and visual deficits to improve pt overallsafety. Due to pt headache and unwilling to amb further, unable to continue w/ gait assessment. Will attempt to see pt again for gait training as able Plan Plan Continue with current plan;If this is the last note, consider this the discharge summary Recommendation/Plan PT Recommendation/Plan Home with family;Post-Acute Therapy PT Frequency 3-5x/wk Treatment/Interventions Bed mobility;Functional transfer training;Gait training PT Evaluation Complete Yes Education: Patient has been educated on the role of PT, safety , precautions, and mobility training. Education completed via explanation. Patient needs ongoing reinforcement Multi-Disciplinary Problems (from Physical Therapy) Active Problems Problem: PT Misc Start Date: 07/29/21 Goal Start Date Expected End Date End Date Pt amb w/ least restrictive device 200' modified ind 07/29/21 08/05/21 -- Goal Start Date Expected End Date End Date Pt improve GILMORE score by 7 pts for decreased fall risk 07/29/21 08/05/21 -- Goal Start Date Expected End Date End Date Pt sit<->stand from varied surfaces modified ind 07/29/21 08/05/21 -- MANAGER * Shruthi Nicole - 07/29/2021 10:35 AM CST Images from the original note were not included. Speech Language/Pathology Evaluation 07/29/21 1030 General Chart Reviewed Yes Session Type Evaluation DISTILLERY WORKER Received On 07/29/21 Safe Environment Arm Band Checked Subjective Agreeable to Therapy Additional Pertinent History 61 y.o. year old male with a pmhx of CAD s/p CABG, HTN, DM, who presented to the ED with complaints of visual loss that started 2 days ago. He went to [facility], where he was dx with a Rt occipital lobe infarct. He was suppose to be transferred forfurther stroke workup but due to the long transfer time, pt left AMA. He states that family convinced him to come back to complete work up. CT: IMPRESSION: Loss of thorne- white differentiation in the right temporal-occipital lobe suggestive of evolving infarct. Small bilateral hypodensities may represent chronic lacunar infarcts. Possible small left pontine infarct. No intracranial hemorrhage. 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 Standard aspiration precautions DISTILLERY WORKER Cognition Impaired; suspect pt may be close to cognitive baseline though. DISTILLERY WORKER Communication Mild dysarthria; pt reports speech is his baselin; may be affected by very poor dentition/missing teeth Pain Assessment Pain Assessment No/denies pain Pain Score 0 - No pain Tracheostomy Tracheostomy No Comments Comments Eval completed. Pt oriented x4. Speech is slightly slurred, however, pt reports this is his baseline due to poor/missing dentition. Pt tolerated p.o trials without s/s of aspiration. Continue a regular diet with thin liquids. BSNT: 04/03. Pt uses explicative throughout the evaluation and is adamant that he is going home vs being admitted today. Speech Therapy Prognosis Services Skilled DISTILLERY WORKER services to address the above deficits Prognosis Fair Prognosis Considerations Potential;Participation level Plan Plan Plan of care initiated Recommendations DISTILLERY WORKER Recommendation (Add'l Services) Defer at this time Treatment/Interventions Cognition/Memory DISTILLERY WORKER Frequency of Services 1-2x/wk DISTILLERY WORKER - Next Appointment 08/01/21 DISTILLERY WORKER - OK to Discharge No Speech Evaluation Complete Yes Past Medical History: Diagnosis Date ??? Chronic obstructive pulmonary disease (CMS/HCC) (HCC) COPD ??? Coronary artery disease ??? DM type 2 (diabetes mellitus, type 2) (HCC) ??? HLD (hyperlipidemia) ??? Hypertension Hypertension ??? ST elevation (STEMI) myocardial infarction ([facility]) 05/01/2021 ??? Tobacco abuse, in remission In remission since 04/2021 RECOMMENDATIONS: Thin Liquids and Regular Diet INSTRUMENTAL: Not indicated at this time ASPIRATION PRECAUTIONS: Supervision: Independent Medications:Whole and As tolerated Compensatory Strategies: Small bites/sips, Up at 90 for meals and Remain upright for 30 min after meals Multi-Disciplinary Problems (from Speech Therapy) Active Problems Problem: Swallowing Start Date: 07/29/21 Problem: Cognitive/Linguistics Start Date: 07/29/21 Goal Start Date Expected End Date End Date STG - Patient will participate in further assessment of cognitive-linguistic skills 07/29/21 08/05/21 -- Education: Patient has been educated on modified diet training and oral care. Education completed via verbal instruction. Patient verbalized understanding Mosher Assessment of Swallowing Ability (MASA) Alertness: Alert Cooperation: Cooperative Auditory Comprehension: No abnormality detected Respiration: Chest clear Respiratory Rate (for swallow): Able to control breath rate for swallow Aphasia: Mild difficulty finding words or expressing ideas Apraxia: Speech accurate after trial and error/minor searching movements Dysarthria: Slow with occasional hesitation or blurring Saliva: No abnormality detected Lip Seal: No abnormality detected Tongue Movement: Full range of motion Tongue Strength: No abnormality detected Tongue Coordination: No abnormality detected Gag: Hyperreflexive/no abnormality detected Palate: No abnormality detected Cough Reflex: No deficit noted Voluntary Cough: No abnormality detected Voice: No abnormality detected Trach: No trach Oral Preparation: No deficits noted Bolus Clearance: Fully cleared Oral Transit: No deficits note Pharyngeal Phase: Immediate laryngeal elevation Pharyngeal Response: No deficits noted MASA Score: 197 Dysphagia: No dysphagia detected (178-200) Aspiration Risk: No aspiration risk (170-200) The Oral Health Assessment Tool (O-HAT) Lips: Healthy-Smooth, pink, moist Tongue: Healthy-Normal, moist, roughness, pink Gums and Tissues: Healthy-Bonita, moist, smooth, no bleeding Saliva: Healthy-Moist tissues, watery and free flowing saliva Natural Teeth-Yes/NO: Yes Natural Teeth: Unhealthy-4+ decayed or broken teeth or roots, or very worn down teeth, or less than4 teeth Dentures-Yes/NO: No Dentures: Healthy-No broken areas or teeth, dentures regularly worn, and named Oral Cleanliness: Healthy-Clean and no food particles or tartar in mouth or dentures Dental Pain: Healthy-No behavioural, verbal, or physical signs of dental pain O-HAT Total Score (out of 16): 2 Consistencies Assessed: 3oz Water Test: Passed Thin: Presentation: Cup Oral:WFL Pharyngeal: WFL Regular: Presentation: Self fed Oral:WFL Pharyngeal: WFL Airway and Oxygen Information: Oxygen:room air Tracheostomy:no Secretion management:WFL Voice:WFL Cough:WFL MANAGER MANAGER documented in this encounter H&P Notes * Sunil Perez MD - 07/29/2021 4:29 AM CST History & Physical Date of service: 07/29/21 Primary care provider: Unknown, Notinfile Chief Complaint: Visual loss HPI: 61 y.o. year old male with a pmhx of CAD s/p CABG, HTN, DM, who presented to the ED with complaintsof visual loss that started 2 days ago. He went to [facility], where he was dxwith a Rt occipital lobe infarct. He was suppose to be transferred for further stroke workup but due to the long transfer time, pt left AMA. He states that family convinced him to come back to complete work up. In regards to his complaints, he states that he woke up with left vidual field loss but now feelingbetter. Associated with frontal headache. Denies any other weakness in his extremities. Past Medical History: Diagnosis Date ??? Chronic [...] ??? CORONARY ARTERY BYPASS GRAFT 05/2021 Four-vessel [facility] (Not in a hospital admission) Allergies Allergen Reactions ? ? Metformin Nausea & Vomiting ??? Metoclopramide Social History Tobacco Use ??? Smoking status: Former Smoker Packs/day: 1.00 Years: 40.00 Pack years: 40.00 Types: Cigarettes ??? Smokeless tobacco: Never Used ??? Tobacco comment: Stop smoking 04/2021 after [facility] Substance Use Topics ??? Alcohol use: No Family History Problem Relation Age of Onset ??? COPD Father Review of Systems Constitutional: Negative for appetite change, chills, diaphoresis, fatigue and fever. HENT: Negative for congestion, rhinorrhea, sinus pain and sore throat. Eyes: Positive for visual disturbance. Negative for discharge and itching. Respiratory: Negative for apnea, cough, chest tightness and shortness of breath. Cardiovascular: Negative for chest pain, palpitations and leg swelling. Gastrointestinal: Negative for abdominal pain, constipation, diarrhea, nausea and vomiting. Endocrine: Negative for cold intolerance and heat intolerance. Genitourinary: Negative for dysuria, frequency and urgency. Musculoskeletal: Negative for arthralgias, back pain and myalgias. Neurological: Positive for headaches. Negative for dizziness, syncope, weakness, light-headedness and numbness. Psychiatric/Behavioral: Negative for agitation and confusion. Objective: Vitals: 07/28/21 1538 07/28/21201407/28/21 2315 07/29/21 0045 BP: 123/74 120/70 123/80 109/69 Pulse: 107 100 89 82 Resp: 16 16 17 14 Temp: 36.8 ??C (98.3 ??F) TempSrc: Oral SpO2: 98% 98% 99% 99% Weight: 86.2 kg (190 lb) Height: 167.6 cm (5' 6 ) 24hr Min/Max: Temp Min: 36.8 ??C (98.3 ??F) Max: 36.8 ??C (98.3 ??F) Pulse Min: 82 Max: 107 BP Min: 109/69 Max: 123/80 Resp Min: 14 Max: 17 SpO2 Min: 98 % Max: 99 % No intake/output data recorded. No intake/output data recorded. Physical Exam Vitals and nursing note reviewed. Constitutional: Appearance: Normal appearance. HENT: Head: Normocephalic and atraumatic. Nose: Nose normal. No congestion. Mouth/Throat: Mouth: Mucous membranes are moist. Pharynx: Oropharynx is clear. Eyes: Extraocular Movements: Extraocular movements intact. Pupils: Pupils are equal, round, and reactive to light. Cardiovascular: Rate and Rhythm: Normal rate and regular rhythm. Pulses: Normal pulses. Heart sounds: Normal heart sounds. No murmur heard. Pulmonary: Effort: Pulmonary effort is normal. Breath sounds: Normal breath sounds. Abdominal: General: Bowel sounds are normal. Palpations: Abdomen is soft. Tenderness: There is no abdominal tenderness. Musculoskeletal: General: Normal range of motion. Cervical back: Normal range of motion and neck supple. Right lower leg: No edema. Left lower leg: No edema. Skin: General: Skin is warm and dry. Capillary Refill: Capillary refill takes less than 2 seconds. Neurological: General: No focal deficit present. Mental Status: He is alert and oriented to person, place, and time. Psychiatric: Mood and Affect: Mood normal. Lab/Radiology/Diagnostic Review: Labs personally reviewed: Images reviewed: CT Outside Consult ED Interpretation Addendum created by Jean Saucedo MD on 07/28/2021 9:21:48 PM LOG MANAGER: THIS REPORT CONTAINS FINDINGS THAT MAY BE CRITICAL TO PATIENT CARE. The findings were verbally communicated via telephone conference with SHAILESH HAREPR at 9:21 PM LOG MANAGER on 07/28/2021. The findings were acknowledged and understood. Initial report created on 07/28/2021 9:06:03 PM LOG MANAGER: PROCEDURE INFORMATION: Exam: CT Head Without Contrast Exam date and time: 07/28/2021 8:36 PM Age: 61 years old Clinical indication: Symptoms: May 2021 had quad bypass, work up today with headache and unable to focus vision TECHNIQUE: Imaging protocol: Computed tomography of the head without contrast. COMPARISON: No relevant prior studies available. FINDINGS: Brain: Mild cortical volume loss. Large wedge-shaped hypodensity in the right occipital lobe. Moderate hypodensities in supratentorial periventricular and subcortical white matter, consistent with microangiopathy. No intracranial hemorrhage. Cerebral ventricles: No ventriculomegaly. Paranasal sinuses: Visualized sinuses are unremarkable. No fluid levels. Mastoid air cells: Visualized mastoid air cells are well aerated. Vasculature: No hyperdense artery. Bones/joints: Unremarkable. No acute fracture. Soft tissues: Unremarkable. IMPRESSION: 1. Acute versus subacute infarct in the right occipital lobe, in the right posterior cerebral artery territory. THIS DOCUMENT HAS BEEN ELECTRONICALLY SIGNED BY JEAN SAUCEDO MD THIS DOCUMENT WAS READ BY A AD RADIOLOGIST, ANY QUESTIONS PLEASE CALL [phone] XR Chest Pa Lateral 2 Vw ED Interpretation Nothing acute. Some atelectasis in the bases. CT Outside Reference Final Result MRI Brain WO Contrast (Results Pending) EKG/tele personally reviewed: NSR, no acute ST changes. Assessment/Plan Acute CVA- Rt occipital lobe infarct Neurology c/s in the AM ASA 325mg given Antiplatelet therapy prior to admission - plavix for hx of CAD LDL pending, changed pravastatin to atorvastatin for high intensity Hemoglobin A1C pending MRI brain w/o contrast ordered (pt reports being claustrophobic) CTA head and neck done at OSH which was supposedly unremarkable. 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 male. Admit Dx: Blurry vision [H53.8] CVA, old, disturbances of vision [I69.398, H53.9] Cerebrovascular accident (CVA), unspecified mechanism (HCC) [I63.9] 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 (CMS/HCC) (HCC) [I63.439]. Admitted on 07/28/2021, current LOS is 2 days. Patient's intake is adequate. Objective Past Medical History: Diagnosis Date ??? Chronic [...] ??? CORONARY ARTERY BYPASS GRAFT 05/2021 Four-vessel [facility] Anthropometrics Weight: 86.2 kg (190 lb) Admission Weight : 86.2 kg Weight Change: 9.07 kg (20.00 lbs) IBW/kg (Calculated) : 64.4 kg Height: 167.6 cm (5' 6 ) Weight in (lb) to have BMI = 25: 154.6 BMI (Calculated): 30.7 Intake/Output Summary (Last 24 hours) at 07/30/2021 1415 Last data filed at 07/30/2021 0810 Gross per 24 hour Intake 480 ml Output 300 ml Net 180 ml Medications and Lab Review: Scheduled Meds: aspirin, 81 mg, oral, Daily atorvastatin, 40 mg, oral, Daily carvediloL, 3.125 mg, oral, BID with meals (bkfst, dinner) clopidogreL, 75 mg, oral, Daily insulin glargine, 0.25 Units/kg, subcutaneous, Nightly insulin lispro, 0-10 Units, subcutaneous, TID with meals insulin lispro, 0-5 Units, subcutaneous, Nightly insulin lispro, 0.083 Units/kg, subcutaneous, TID with meals pantoprazole DR, 40 mg, oral, Daily Continuous Infusions: PRN Meds: ??? acetaminophen ??? dextrose OR dextrose ??? glucagon ??? ondansetron ODT OR ondansetron ??? oxyCODONE ??? polyethylene glycol ??? ramelteon ??? traMADoL Sodium Date Value Ref Range Status 07/28/2021 132 (L) 135 - 145 mmol/L Final Potassium, pl Date Value Ref Range Status 07/28/2021 3.9 3.3 - 4.9 mmol/L Final BUN Date Value Ref Range Status 07/28/2021 14 8 - 25 mg/dL Final Creatinine Date Value Ref Range Status 07/28/2021 0.70 (L) 0.80 - 1.30 mg/dL Final Albumin Date Value Ref Range Status 07/28/2021 4.5 3.5 - 5.0 g/dL Final Calcium Date Value Ref Range Status 07/28/2021 9.3 8.5 - 10.3 mg/dL Final HDL Date Value Ref Range Status 07/29/2021 40 >=40 mg/dL Final Comment: Interpretive Data Ages < or = 19 years Acceptable: >45 mg/dL Borderline low: 40-45 mg/dL Low: <40 mg/dL Ages > or = 20 years Desirable: >or= 60 mg/dL Low: <40 mg/dL Literature References: 1. Expert Panel on Integrated Guidelines for Cardiovascular Health and Risk Reduction in Children and Adolescents. Pediatrics 2011;128:S213 2. NCEP Expert Panel. Circulation 2004;110:227 Current Interpretive Data was last revised on 2018. ALT Date Value Ref Range Status 07/28/2021 17 7 - 55 Units/L Final AST Date Value Ref Range Status 07/28/2021 26 10 - 50 Units/L Final Alk phos Date Value Ref Range Status 07/28/2021 95 40 - 130 Units/L Final Lab Results Component Value Date HGBA1C 10.5 (H) 07/29/2021 Nursing Assessment: Marko Scale Score: 19 Dietary Orders (From admission, onward) Start Ordered 07/29/21 2100 Bedtime snack At bedtime Comments: If bedtime BG is less than 100mg/dl, give patient a 15 gram carbohydrate snack. 07/29/21 0516 07/29/21 0745 Adult Diet Restricted; Low Fat, Low Chol, Low Na; Consistent Carbohydrate Diet effective now Question Answer Comment ([facility]) Diet type Restricted Fat / Sodium Restriction: Low Fat, Low Chol, Low Na Diabetic: Consistent Carbohydrate 07/29/21 0746 Nutrition Needs Calculations: Calculated Energy Needs Using Equations Weight: 86.2 kg (190 lb) Height: 167.6 cm (5' 6 ) Estimated Protein Needs Type of Weight Used for Estimated Protein : Current Protein Needs Based on g/k.8 Total Protein Estimated Needs (gm): 68.95 Kcal/kg Type of Weight Used for Estimated Kcals: Current Kcal/k Total Kcal/kg Estimated Needs : 1896.03 Nutritional Needs and Diagnosis: Nutrition Diagnosis 1: Limited adherence to nutrition-related recommendations Related to: Food choices, Low health literacy Evidenced by: Patient interview, Lab abnormality Wt Readings from Last 5 Encounters: 07/28/21 86.2 kg (190 lb) 06/16/21 77.1 kg (170 lb) 05/29/21 76.3 kg (168 lb 3.4 oz) 08/27/13 114.3 kg (252 lb) 10/19/12 111.6 kg (246 lb) Impression: Stroke consult received. Posterior right temporal and occipital lobe acute infarct in the distribution of the right HEALTH SCIENCES PROGRAM COORDINATOR; right parietal small acute infarct per MRI. H/o T2DM (A1c 10.5%), HTN, HLD, CAD s/p CABG 05/2021, COPD. Pt reports good appetite and intake. Missing several teeth; tooth decay; yellowish/ white coating on tongue. Denies issues with chewing/swallowing. Able to eat meatand breads fine. Pt stated several times that he loves mashed potatoes. Eats out at [facility]. Was told to take the skin off the chicken post CABG. Pt does not do this; this is the best part . Drinks lightly sweet tea. Discussed blood sugars. Pt states he checks at home; cannot give a usual range. Discussed limiting CHO foods and filling plate with veggies; pt states he likes all veggies. Provided handout with visual plate diagram. Plan: Attached DM diet information to discharge paperwork for reference. Review frequently as able. Intervention and Monitoring: Goals: Adequate nutrition to meet estimated needs by next assessment, Patient/caregiver able to teach back understanding of role of diet in disease process prior to discharge Interventions: Initial assessment, Education, nutrition, Follow up per policy Monitoring and Evaluation: Diet-related questions, Blood glucoses, Labs, Plan of care, PO intake Kendal Scanlon RD,LD MANAGER * Juliane Landis MD - 07/29/2021 5:25 PM CSTAssociated Order(s): IP CONSULT TO NEUROLOGY Neurology Consult CHIEF COMPLAINT Patient is being seen as a new consult at the request of Dr. Pierson for stroke w/u ASSESSMENT / PLAN 1. Cerebral ischemia Today's neurologic exam is indicative left visual field deficits which suggests a right occipital infarct. His CT scan from [facility] is compatible With findings suggestive a right temporal occipital evolving infarct as well as evidence other more diffuse small-vessel disease Historically, Baldev manages with dual anti-platelet therapy and pravastatin for cardiac issues. Agree with the need for further evaluation of his treatment regimen with full stroke risk stratification Plan: - Agree with present management, - PT/OT/speech - Continue present medications for now - Full stroke risk stratification with: MRI/MRA brain 2D echo carotid Doppler 2. Headache likely associated with the above Plan: - Agree with present management - Further neuro imaging as per above - Begin p.r.n. tramadol HPI: Baldev is a 61-year-old male with multiple medical problems including hypertension, hyperlipidemia,and CAD (status post CABG) who presented to the emergency room initially a [facility]. Apparently, he states that he had a severe headache along with dizziness and blurred vision. Per report, he left AMA but came back to the hospital within 24 hours by family members after he suffered from a fall. At [place], he underwent CT scanning at that time, there was consideration for a new right temporal occipital lobe infarct as well as possible small left pontine infarct. Because of all the above, he was transferred to the emergency room here [facility] for further assessment including neurology consultation. Here, he was assessed and appropriately admitted to the neurology floor for further workup Past Medical History: Diagnosis Date ??? Chronic [...] PLACEMENT ??? CORONARY ARTERY BYPASS GRAFT 05/2021 [facility] Allergies Allergen Reactions ? ? Metformin Nausea & Vomiting ??? Metoclopramide HOME MEDICATIONS : aspirin 81 mg enteric coated tablet clopidogreL (PLAVIX) 75 mg tablet albuterol HFA (PROVENTIL HFA,VENTOLIN HFA,PROAIR HFA) 90 mcg/actuation inhaler carvediloL (COREG) 3.125 mg tablet empagliflozin (JARDIANCE) 10 mg tablet fenofibrate nanocrystallized (TRIGLIDE) 160 mg tablet insulin glargine (LANTUS, SEMGLEE) 100 unit/mL vial for injection pantoprazole DR (PROTONIX) 40 mg EC tablet pravastatin (PRAVACHOL) 80 mg tablet Current Facility-Administered Medications Medication Dose Route Frequency Provider Last Rate Last Admin ??? acetaminophen (TYLENOL) tablet 650 mg 650 mg oral Q4H PRN Alexandru Osman MD 650 mg at 07/29/21 2253 ??? aspirin enteric coated tablet 81 mg 81 mg oral Daily Alexandru Osman MD 81 mg at 07/29/21 0441 ??? atorvastatin (LIPITOR) tablet 40 mg 40 mg oral Daily Sunil Perez MD 40 mg at 07/29/21 0815 ??? carvediloL (COREG) tablet 3.125 mg 3.125 mg oral BID with meals (bkfst, dinner) Sunil Perez MD 3.125 mg at 07/29/21 1657 ??? clopidogreL (PLAVIX) tablet 75 mg 75 mg oral Daily Sunil Perez MD 75 mg at 07/29/21 0815 ??? dextrose (GLUTOSE) 40 % gel 15 g 15 g oral Q15 Min PRN Sunil Perez MD Or ??? dextrose (D10W) 10% bolus 250 mL 250 mL intravenous Q15 Min PRN Sunil Perez MD ??? glucagon injection 1 mg 1 mg intramuscular Q30 Min PRN Sunil Perez MD ??? insulin glargine (LANTUS, SEMGLEE) 100 unit/mL injection 22 Units 0.25 Units/kg subcutaneous Nightly Sunil Perez MD 22 Units at 07/29/212041 ??? insulin lispro (HumaLOG, ADMELOG) 100 unit/mL injection 0-10 Units 0-10 Units subcutaneous TID with meals Sunil Perez MD ??? insulin lispro (HumaLOG, ADMELOG) 100 unit/mL injection 0-5 Units 0-5 Units subcutaneous Nightly Sunil Perez MD ??? insulin lispro (HumaLOG, ADMELOG) 100 unit/mL injection 7 Units 0.083 Units/kg subcutaneous TIDwith meals Sunil Perez MD 7 Units at 07/29/21 1229 ??? ondansetron ODT (ZOFRAN-ODT) disintegrating tablet 4 mg 4 mg oral Q6H PRN Alexandru Osman MD 4 mg at 07/29/21 0441 Or ??? ondansetron (ZOFRAN) injection 4 mg 4 mg intravenous Q6H PRN Alexandru Osman MD 4 mg at 07/29/21 1802 ??? oxyCODONE (ROXICODONE) tablet 2.5 mg 2.5 mg oral Q6H PRN Ras Pierson MD 2.5 mg at 07/29/21 2041 ??? pantoprazole DR (PROTONIX) extended release tablet 40 mg 40 mg oral Daily Sunil Perez MD 40 mg at 07/29/21 0815 ??? polyethylene glycol (MIRALAX) packet 17 g 17 g oral Daily PRN Alexandru Osman MD ??? ramelteon (ROZEREM) tablet 8 mg 8 mg oral Nightly PRN Ras Pierson MD ??? traMADoL (ULTRAM) tablet 50 mg 50 mg oral QID PRN Juliane Landis MD 50 mg at 07/29/21 1657 Social History Socioeconomic History ??? Marital status: Tobacco Use ??? Smoking status: Former Smoker Packs/day: 1.00 Years: 40.00 Pack years: 40.00 Types: Cigarettes ??? Smokeless tobacco: Never Used ??? Tobacco comment: Stop smoking 04/2021 after NH Substance and Sexual Activity ??? Alcohol use: No ??? Drug use: Not Currently Frequency: 1.0 times per week Comment: 1 ppd current smoker ??? Sexual activity: Defer Social History Narrative Patient is . Lives with his and 2 children. 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 Family History Problem Relation Age of Onset ??? COPD Father Review of Systems Constitutional: No fevers, chills, No fatigue Eyes: No visual disturbances HEENT: No throat pain, No hearing disturbances Cardiology: No Chest Pain, +CAD Respiratory: +COPD, + SOB Gastrointestinal: No N,V,D Neurologic: No paresthesias, No weakness Skin: No rashes or itching Musculoskeletal: No joint pains Psychiatric: No depression or anxiety Objective Vitals: Arrival Vitals Temp 07/28/21 1538 36.8 ??C (98.3 ??F) Pulse 07/28/21 1538 107 Resp 07/28/21 1538 16 BP 07/28/21 1538 123/74 SpO2 07/28/21 1538 98 % Temp src 07/28/21 1538 Oral Heart Rate Source 07/29/21 1420 Monitor Patient Position 07/29/21 1350 Lying BP Location 07/29/21 1420 Right arm FiO2 (%) -- 24 hr Min/Max: Temp Min: 36.3 ??C (97.4 ??F) Max: 36.8 ??C (98.2 ??F) Pulse Min: 79 Max: 109 BP Min: 96/77 Max: 126/73 Resp Min: 16 Max: 20 SpO2 Min: 92 % Max: 100 % Most Recent : Vitals: 07/30/21 0415 BP: 123/73 Pulse: 81 Resp: 20 Temp: 36.7 ??C (98 ??F) SpO2: 97% Height: 167.6 cm (5' 6 ) Weight: 86.2 kg (190 lb) BMI (Calculated): 30.7 Physical exam: Constitutional: Appears well and in no acute distress Mental Status: Alert and oriented times three, Language is fluent and approp, Good naming, Good repeats, Good attention, Good concentration, Recent and remote memory intact, Fund of knowledge is appropriate Cranial Nerves: CN's II-XII grossly intact Except for inconsistent findings when testing the left visual field suggesting hemianopia Motor: Normal bulk and tone noted Strength: 5-/5 throughout Sensory: Intact to LT and pain bilat Coordination: Good FNF, No obvious invol mvmts Gait: not tested secondary to fall risks Reflexes: trace throughout, Babinski's are neg Extremities: No noted edema Thank you for allowing me to participate in care of this patient. Will follow. Juliane Landis MD [facility] Office: MANAGER documented in this encounter ED Notes * Sal Cabello EMT-P - 07/29/2021 2:09 PM CST Patient belonging conversation was held with the patient and or family. Understanding verbalized. Sal Cabello EMT-P 07/29/21 1409 MANAGER * Shailesh Harper MD - 07/28/2021 7:28 PM CST HPI Chief Complaint Patient presents with ??? Loss of Vision HPI 61-year-old male patient with a history of DM type 2, HLD, HTN, CAD with stent after STEMI 04/2021 followed by CABG 05/2021 at [facility], and COPD with prior tobacco abuse having quit 04/2021, presenting for evaluation apparently in transfer from [facility] he was seen prior to arrival with concerns for a stroke. Patient is a very difficult and challenging historian. It seems that he had been doing fairly well,at his recent baseline until yesterday morning when he woke up with a ???severe?? headache, rated 5/10 at the worst, described as ???just an ache?? in the bifrontal/supraorbital region of his head,which did resolve temporarily with ibuprofen but kept recurring. He noted no associated nausea, vomiting, photophobia or phonophobia. Prior history of similar headaches is denied. Denies history of migraines, although he called this ???a migraine headache?? . After several hours of this headache yesterday, he noted the onset of blurred vision in both eyes diffusely, which persisted until mid day today, about 24 hours. He denied any diplopia or an obvious visual field cut. It no ocular pain. Vision is normal currently. The patient denies any lateralizing neurologic symptoms including numbness,tingling, weakness or any gait instability, speech difficulty, or difficulty with his thinking/confusion/etc.. On further discussion with other staff members, apparently he did leave the emergency department yesterday, AMA as he did not want for a bed to be assigned here since there was a call to the transfercenter for direct admit. He must of gone home, and then fell members decided to bring her directly today, 24 hours later. Records are not available for review in Care Everywhere at this time. Patienttells me that he did not receive any medication or except Tylenol for his headache which did help for several hours but the headache has recurred. Patient remains on 1 baby aspirin a day and Plavix 75 mg daily. Patient History: Patient Active Problem List Diagnosis Date Noted ??? CVA, old, disturbances of vision 07/28/2021 ??? ST elevation myocardial infarction (STEMI) ([facility]) 05/01/2021 Past Medical History: Diagnosis Date ??? Chronic obstructive pulmonary disease (CMS/HCC) ([facility]) COPD ??? Coronary artery disease ??? DM type 2 (diabetes mellitus, type 2) ([facility]) ??? HLD (hyperlipidemia) ??? Hypertension Hypertension ??? ST elevation (STEMI) myocardial infarction ([facility]) 05/01/2021 ??? Tobacco abuse, in remission In remission since 04/2021 Past Surgical History: Procedure Laterality Date ??? CARDIAC STENT PLACEMENT ??? CORONARY ARTERY BYPASS GRAFT 05/2021 [facility] Family History Problem Relation Age of Onset ??? COPD Father Social History Tobacco Use ??? Smoking status: Former Smoker Packs/day: 1.00 Years: 40.00 Pack years: 40.00 Types: Cigarettes ??? Smokeless tobacco: Never Used ??? Tobacco comment: Stop smoking 04/2021 after NH Substance Use Topics ??? Alcohol use: No ??? Drug use: Not Currently Frequency: 1.0 times per week Comment: 1 ppd current smoker Social History Social History Narrative Patient is . Lives with his and 2 children. 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 Review of Systems Review of Systems Constitutional: No recent fever, chills, or sweats. No significant malaise or fatigue recently. Weight stable. No COVID vaccinations. No history of COVID. No recent contacts . No COVID symptoms except for headache. EENT: No cold or flu symptoms. No sore throat or earache. No visual changes except as above for about 24 hours now resolved. Cardiac: No chest pain, SOB/AGUIRRE or edema. No chest pain with exertion or any other exertional intolerance. No palpitations. Pulmonary: No change in chronic mild cough or recent wheezing. History of perhaps mild COPD and was giving an inhaler back in April, a after his NH, but used it once and denies any wheezing or history of asthma. GI: No nausea, vomiting, or diarrhea. No abdominal pain. No melena or hematochezia : No change in bladder habits including no hematuria Otherwise, the remainder of the extensive review of systems in this patient is unremarkable/negative, except for that mentioned above and in the HPI Physical Exam Physical Exam CONSTITUTIONAL: Vital signs were reviewed. Somewhat chronically ill-appearing middle-aged white male of moderate build, who appears somewhat unkempt. Currently he is in no apparent distress. Complaining of a mild headache. Tylenol ordered. Grooming is lacking somewhat. Here alone currently, claiming that he was dropped off by his . Mentating clearly. Oriented x4. HEAD: Normocephalic; Atraumatic. No sinus or scalp tenderness. No rash or redness. EYES: PERRL; EOM intact with lots of ever getting him to look to the left side. There seemed to be a component of neglect regarding his left side; Conjunctiva and sclera are clear bilaterally. Visualfields are very difficult to evaluate due to patient's cooperation and what appears to be his baseline mental status. He may have some underlying baseline cognitive impairment. Nonetheless, there didappear to be some difficulty with him using his left eye to read. There may be a left visual field cut. ENT: There is no rhinorrhea. He has a fairly normal pharynx with no erythema/exudate. Mucous membranes pink/somewhat dry. NECK: Supple without evidence of meningismus/rigidity; Non-tender; No cervical lymphadenopathy. No carotid bruits. No JVD. No thyromegaly CARD: Normal S1, S2. No murmurs, rubs, or gallops. Rate is normal and rhythm is regular. Brisk capillary refill noted CHEST: Nontender. No rash or redness. RESP: Normal respiratory effort; breath sounds are diminished bilaterally but fairly clear and equal bilaterally; No wheezes, rhonchi, or rales. ABD: Normal bowel sounds; His abdomen is non-distended; Soft and non-tender. I cannot detect any palpable organomegaly or masses. No bruits. No hernias. BACK: Nontender over the thoracic and lumbar spinous processes. No CVAT. EXT: Normal ROM. Non-tender to palpation. Distal pulses are normal, no edema . SKIN: Normal for age and race; warm; dry. He has good skin turgor. No unusual rashes/lesions are present. NEUROLOGIC: NIH stroke scale score was 2 based on visual changes involving either the left eye or the left half of both visual griffiths. The patient is awake, alert, and oriented x four Speech is clear. Conversation is appropriate. Follows commands with encouragement. Cranial Nerve examination 2-12 is intact without deficit. Motor examination shows 5/5 strength bilaterally. Sensory examination is normal and symmetric. Reflexes are 2+/4+ and symmetric. Cerebellar is intact as tested with the [id number] maneuver and heel to daley. Gait is steady PSYCHIATRIC: Patient appears to have a unusual affect. No agitation. Perhaps minimal anxiety evident. A&O x4 [facility] ED Course as of 07/28/212230 Time: 07/28 1934 Comment: Differential diagnosis in this patient would primarily be a stroke based on what he tells me about the CT scan at the other facility. There is a incomplete note written by a neurologist, butit does not appear that the neurologist actually saw the patient. The diagnosis on the note was CVA. It is unclear whether this presentation is truly a stroke or not. It is somewhat atypical. The visual abnormality for 24 hours seemed to be bilateral and diffuse. There was no obvious visual field cut base description. Will evaluate for other potential causes of headache but certainly does not sound to be related to a tumor or hemorrhagic event. Vasculitis is a possibility but not likely. Sed rate and CRP have been sent. He could be having a migraine headache as well but although he has no history. By: Shailesh Harper MD Time: 07/28 2049 Comment: CT scan was interpreted by virtual neuro radiology here. It showed what appeared to be in acute versus subacute infarct in the right occipital lobe in the right posterior cerebral artery distribution. The CT scan was apparently dated yesterday, 07/27/2019 to despite with the patient told me about the scan being done earlier today. By: Shailesh Harper MD Time: 07/28 2201 Comment: Further review of records from [facility] in April of 2021 showed that the patient was diagnosed with COVID-19. There for repeat testing will not be done today. This has been lessthan 90 days. COVID recovered By: Shailesh Harper MD Vitals: 07/28/212014 BP: 120/70 Pulse: 100 Resp: 16 Temp: SpO2: 98% CT Outside Consult ED Interpretation Addendum created by Jean Saucedo MD on 07/28/2021 9:21:48 PM LOG MANAGER: THIS REPORT CONTAINS FINDINGS THAT MAY BE CRITICAL TO PATIENT CARE. The findings were verbally communicated via telephone conference with SHAILESH HARPER at 9:21 PM LOG MANAGER on 07/28/2021. The findings were acknowledged and understood. Initial report created on 07/28/2021 9:06:03 PM LOG MANAGER: PROCEDURE INFORMATION: Exam: CT Head Without Contrast Exam date and time: 07/28/2021 8:36 PM Age: 61 years old Clinical indication: Symptoms: May 2021 had quad bypass, work up today with headache and unable to focus vision TECHNIQUE: Imaging protocol: Computed tomography of the head without contrast. COMPARISON: No relevant prior studies available. FINDINGS: Brain: Mild cortical volume loss. Large wedge-shaped hypodensity in the right occipital lobe. Moderate hypodensities in supratentorial periventricular and subcortical white matter, consistent with microangiopathy. No intracranial hemorrhage. Cerebral ventricles: No ventriculomegaly. Paranasal sinuses: Visualized sinuses are unremarkable. No fluid levels. Mastoid air cells: Visualized mastoid air cells are well aerated. Vasculature: No hyperdense artery. Bones/joints: Unremarkable. No acute fracture. Soft tissues: Unremarkable. IMPRESSION: 1. Acute versus subacute infarct in the right occipital lobe, in the right posterior cerebral artery territory. THIS DOCUMENT HAS BEEN ELECTRONICALLY SIGNED BY JEAN SAUCEDO MD THIS DOCUMENT WAS READ BY A [facility] RADIOLOGIST, ANY QUESTIONS PLEASE CALL [phone] XR Chest Pa Lateral 2 Vw ED Interpretation Nothing acute. Some atelectasis in the bases. CT Outside Reference Final Result Labs Reviewed CBC WITH AUTO DIFFERENTIAL - Abnormal Result Value WBC 15.4 (*) Hgb 13.2 Hct 39.3 Plt 394 MPV 11.1 RBC 4.26 (*) MCV 92.3 MCH 31.0 MCHC 33.6 RDW CV 14.6 RDW SD 49.3 (*) NRBC abs 0.00 COMPREHENSIVE METABOLIC PANEL - Abnormal Sodium 132 (*) Potassium, pl 3.9 Chloride 102 CO2 18 (*) Anion gap 12 BUN 14 Creatinine 0.70 (*) Glucose 207 (*) Calcium 9.3 Bilirubin, total 0.3 Protein, pl 7.6 Albumin 4.5 Alk phos 95 ALT 17 AST 26 DIFFERENTIAL AUTO - Abnormal Neutrophil abs 11.3 (*) Imm gran abs 0.1 Lymphocyte abs 2.6 Monocyte abs 1.3 (*) Eosinophil abs 0.1 Basophil abs 0.1 Neutrophil pct 73.0 Imm gran pct 0.5 Lymphocyte pct 17.1 Monocyte pct 8.6 Eosinophil pct 0.5 Basophil pct 0.3 EGFR eGFR 105 ERYTHROCYTE SEDIMENTATION RATE Erythrocyte sedimentation rate 18 CRP (ACUTE PHASE) CRP 3.6 MDM MEDICAL DECISION MAKING CLINICAL PICTURE: Patient presents on his own after an AMA discharge from the emergency department at a hospital in [place] yesterday, apparently not wanting to wait for direct admit transfer to this hospital. Likely 2 days ago, he noted the onset of a severe bifrontal headache with some visual disturbance, perhaps a left visual field cut which is hard to evaluate. Perhaps some left-sided neglect. CT scan done yesterday did show a subacute/acute infarct in the right occipital lobe. There is no evidence of any progression of his symptoms. Patient has not had a CVA in the past. He does need further evaluation to include carotid ultrasonography, echocardiography, and ongoing cardiac monitoring. He will need neurologic evaluation. He is on dual anti-platelet therapy at this point time which may be adjusted to full-dose aspirin therapy instead of 81 mg. Admission has been arranged on the service of Dr. Perez who was notified. Patient has a full code status which I clarified with him. Patient is COVID recovered with COVID diagnosed mid April of last year. I did personally review the patient's lab work available today, and any available lab work from previous visits for comparison. I did personally review the patient's EKG and if possible, compared it with a previous EKG on file here. I did personally review the patient's radiographic studies, as well as the available radiologist interpretation. I did review significant amounts of information in the patient's [facility] EMR regarding their PMH. We do not expect the patient to stay two midnights. INTERPRETATION OF CLINICAL STUDIES: Refer to the orders and results documented in the chart. PREVIOUS MEDICAL RECORDS: Reviewed if available. DISCUSSION OF CASE: The patient's H&P and the results of studies and treatments were discussed with the physician(s) above. TREATMENT PLAN: See Above Cerebrovascular accident (CVA), unspecified mechanism (HCC) Shailesh Harper MD 07/28/211934 Shailesh Harper MD 07/28/212051 Shailesh Harper MD 07/28/212233 MANAGER MANAGER MANAGER * Benjie Diaz RN - 07/28/2021 3:26 PM CST Patient stated he was sent from [facility] for further treatment. His last known normal was Tuesday07/26/21, he woke up on Tuesday07/27/21 with a headache/vision changes. MANAGER documented in this encounter Miscellaneous Notes * Plan of Care - Dinorah Tinajero RN - 07/30/2021 3:48 PM CST Spoke w/. Agreeable to take him home from hospital. She will transport MANAGER * Plan of Care - Destiny Wyman RN - 07/30/2021 3:22 PM CST Problem: Health Behavior: Goal: Understanding of discharge needs will improve Outcome: Progressing Problem: Activity: Goal: Capacity to carry out activities will improve Outcome: Progressing Goal: Mobility will improve Outcome: Progressing Goal: Range of joint motion will improve Outcome: Progressing Problem: Lack of Knowledge: Goal: Verbalization of understanding the information provided will improve Outcome: Progressing Problem: Health Behavior: Goal: Ability to manage health-related needs will improve Outcome: Progressing Problem: Role Relationship: Goal: Ability to communicate needs accurately will improve Outcome: Progressing Goal: Ability to reevaluate and adapt role responsibilities will improve Outcome: Progressing Problem: Safety: Goal: Ability to remain free from injury will improve Outcome: Progressing Problem: Self-Care: Goal: Ability to participate in self-care as condition permits will improve Outcome: Progressing Goal: Verbalization of feelings and concerns over difficulty with self-care will improve Outcome: Progressing Problem: Lack of Knowledge: Goal: Ability to state ways to decrease the risk of falls will improve Outcome: Progressing Problem: Safety: Goal: Will remain free from falls Outcome: Progressing Goal: Will remain free from injury from falls Outcome: Progressing Goal: Will remain free from falls and injury in home environment Outcome: Progressing Goals: Clinical Goals for the Shift: vss, neuro checks, rest, comfort, safety Summary: vss, pt resting throughout shift. MRI completed, ECHO pending. Reports headache often. Neuro checks remain unchanged, glucose stable. Currently awaiting [facility] or acute rehab. Will continue to monitor and offer support as needed. MANAGER * Plan of Care - Dinorah Tinajero RN - 07/30/2021 2:56 PM CST Multiple referrals for acute rehab-out of network with all but [facility]. Unable to get auth from insurance. Referrals made to [facility] agencies. None in network with insurance plan. 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 year old male with a pmhx of CAD s/p CABG, HTN, DM, who presented to the ED with complaints of visual loss that started 2 days ago. He went to [facility], where he was dx with a Rt occipital lobe infarct. He was suppose to be transferred forfurther stroke workup but due to the long transfer time, pt left AMA. He states that family convinced him to come back to complete work up. CT: IMPRESSION: Loss of thorne- white differentiation in the right temporal-occipital lobe suggestive of evolving infarct. Small bilateral hypodensities may represent chronic lacunar infarcts. Possible small left pontine infarct. No intracranial hemorrhage. 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 Standard aspiration precautions DISTILLERY WORKER Cognition Impaired; suspect pt may be close to cognitive baseline though. DISTILLERY WORKER Communication Mild dysarthria; pt reports speech is his baselin; may be affected by very poor dentition/missing teeth Pain Assessment Pain Assessment No/denies pain Pain Score 0 - No pain Tracheostomy Tracheostomy No Comments Comments Eval completed. Pt oriented x4. Speech is slightly slurred, however, pt reports this is his baseline due to poor/missing dentition. Pt tolerated p.o trials without s/s of aspiration. Continue a regular diet with thin liquids. BSNT: 04/03. Pt uses explicative throughout the evaluation and is adamant that he is going home vs being admitted today. Speech Therapy Prognosis Services Skilled DISTILLERY WORKER services to address the above deficits Prognosis Fair Prognosis Considerations Potential;Participation level Plan Plan Plan of care initiated Recommendations DISTILLERY WORKER Recommendation (Add'l Services) Defer at this time Treatment/Interventions Cognition/Memory DISTILLERY WORKER Frequency of Services 1-2x/wk DISTILLERY WORKER - Next Appointment 08/01/21 DISTILLERY WORKER - OK to Discharge No Speech Evaluation Complete Yes Physical Therapy Evaluation 07/29/21 0935 General Chart Reviewed Yes Session Type Evaluation PT Received On 07/29/21 Safe Environment Arm Band Checked;Call Light within Reach Subjective Agreeable to Therapy Additional Pertinent History Pt admitted w/ headache. Pt had been in ER 24 hrs prior w/ blurred vision and headache and left AMA, head CT taken then showing acute or subacute right occipital lobe infarct in right posterior cerebral artery. Pt other PMHx includes CABG 4 wks ago, COPD, HTN, HLD, DM, COVID recovered, and CAD. Family/Caregiver Present No Physical Therapy-Patient Goal Return home Home Living Type of Home House Home Layout One level Home Access Level entry Bathroom Shower/Tub Tub/shower unit Bathroom Toilet Standard Bathroom Equipment Grab bars in shower/tub;Shower chair;Grab bars around toilet Home Mobility Equipment Wheeled walker;Single point cane Additional Comments Pt amb no device, pt did use ww following his CABG Prior Function Level of [place] Independent with ADLs;Independent functional transfers;Independent with homemaking with ambulation Lives With Spouse (has teenage children) Receives Help From Family Driving Yes ADL Assistance Independent Instrumental ADL (IADL) Assistance Independent Vocational/Occupation (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, 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) Fall within the last 6 months No Pain Assessment Pain Score 8 Clinical Progression Not changed Pain Interventions Medication (See MAR);RN Notified Vision - Complex Assessment Visual Griffiths Difficulty detecting stimulus to left Visual Screen Results Left homonymous peripheral visual field deficit Cognition Arousal/Alertness Alert Following Commands Follows all commands and directions without difficulty Compliance/Behavior Reluctant to participate Sensation Light Touch WFL Coordination Heel to [place] Intact Finger Nose Finger Intact Static Sitting Balance Static Sitting-Balance Support Feet supported Static Sitting-Sitting Surface Bed Static Sitting-Level of Assistance Independent Static Standing Balance Static Standing-Balance Support No upper extremity supported Static Standing-Standing Surface Floor Static Standing-Comment/# of Minutes Pt w/ GILMORE balance assessment score of 40/56 indicating need for assistive device Bed Mobility 1 Bed Mobility Comments 1 Pt supine<->sit IND from flat bed, no rail Transfer 1 Trials/Comments 1 Pt sit<->stand SBA/IND Ambulation Functional Ambulation Category 2 Ambulation 1 Ambulation Comments 1 Pt agreed to limited distance ambulation, 30' no device CGA. Pt is unsteady w/ moderate path deviation no gross LOB. RUE Strength R Shoulder Flexion 4/5 R Shoulder ABduction 4/5 LUE Strength L Shoulder ABduction 4/5 L Elbow Flexion 4/5 Strength RLE R Hip Flexion 4/5 R Knee Extension 4+/5 R Ankle Dorsiflexion 4+/5 Strength LLE L Hip Flexion 4/5 L Knee Extension 4+/5 L Ankle Dorsiflexion 4+/5 Other Comments Other PT Comments Pt Modified Sterling Scale=4.Pt does demonstrate visual deficits and gait instability. Pt states he does not want to be admitted, pt instructed to use ww once returns home. Pt would benefit from continued PT upon discharge to address balance and visual deficits to improve pt overallsafety. Due to pt headache and unwilling to amb further, unable to continue w/ gait assessment. Will attempt to see pt again for gait training as able Plan Plan Continue with current plan;If this is the last note, consider this the discharge summary Recommendation/Plan PT Recommendation/Plan Home with family;Post-Acute Therapy PT Frequency 3-5x/wk Treatment/Interventions Bed mobility;Functional transfer training;Gait training PT Evaluation Complete Yes Occupational Therapy Evaluation 07/30/21 0830 General Chart Reviewed Yes Session Type Evaluation OT Received On 07/30/21 Safe Environment Arm Band Checked;Bed Alarm placed and activated;Call Light within Reach;Session Completed Bedside;Patient found sitting in Chair;Overbed Table within Reach Subjective Agreeable to Therapy Additional Pertinent History 61 yo presented to OSH with vision changes, [place], right occipital CVA; left AMA while awaiting transfer here; went home and fell so family brought him here; Head CT reveals: Loss of thorne-white differentiation in the right temporal-occipital lobe suggestive of evolving infarct. 2. Small bilateral hypodensities may represent chronic lacunar infarcts. 3. Possible small left pontine infarct. Hx of including but not limited to covid 06/17, DM, HLD, HTN, CAD, cardiac stent,STEMI, tobacco abuse, COPD Treatment Duration 53 Minutes Family/Caregiver Present No Occupational Therapy-Patient Goal Get back to health. 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 Leisure (guitar) Fall within the last 6 months No Grooming Grooming: Where assessed Standing at sink Grooming: Level of assistance Contact Guard Assist Grooming: Assistance with Wash/dry hands;Safety Bathing Bathing: Where assessed (declines) LE Dressing LE Dressing: Where assessed Standing;Sitting;Edge of bed LE Dressing: Level of assistance Contact Guard Assist (pants, socks SBA) LE Dressing: Assistance with Verbal cueing;Supervision/safety;Pull up over hips;Safety Toileting Toileting: Where assessed Toilet Toileting: Level of assistance Contact Guard Assist Toileting: Assistance with Clothing management down;Clothing management up Pain Assessment Pain Score 0 - No pain Clinical Progression Not changed Vision - Complex Assessment Visual Griffiths Difficulty detecting stimulus to left Visual Screen Results Left homonymous hemianopsia Cognition Overall Cognitive Status Impaired Arousal/Alertness Alert Memory Decreased short term memory Orientation Oriented X4 (person, place, time, situation) Following Commands Follows all commands and directions without difficulty Safety Judgment Decreased awareness of need for safety Awareness of Errors Decreased awareness of errors Insight Decreased awareness of deficits Problem Solving Assistance required to implement solutions;Assistance required to generate solutions;Assistance required to identify errors made Compliance/Behavior Easy to engage Motor Planning Motor Planning (apraxia screening passed) Coordination Fine Motor WFL Hand Preference Hand Preference Right Bed Mobility 1 Bed Mobility Comments 1 supine to sit SBA Transfer 1 Trials/Comments 1 minimal assist/CGA toilet, shower chair, ambulation to/from restroom with no device; verbal and tactile cues for navigation due to visual deficits RUE Assessment RUE Assessment (shoulder flexion 90, strength 3-) LUE Assessment LUE Assessment (shoulder flexion 90, strength 3-) Assessment Prognosis Good Problem List Decreased safe judgment during ADL;Decreased upper extremity strength;Decreased upper extremity range of motion;Decreased cognition;Decreased endurance;Decreased balance;Visual deficit;Decreased functional mobility;Decreased IADL independence;Decreased ADL independence Plan Plan If this is the last note, consider this the discharge summary;Plan of care initiated Recommendation/Plan OT Recommendation (S) Inpatient Rehab Facility OT Frequency 3-5x/wk Treatment/Interventions Balance Training;ADL/IADL retraining;Cognitive retraining;Compensatory technique education;Functional activity;Functional transfer training;Functional mobility training;Transfer training;Therapeutic activity;Strengthening;Therapeutic exercise OT Evaluation Complete Yes MANAGER * Plan of Care - Alex Gutierrez RN - 07/30/2021 4:58 AM CST Problem: Health Behavior: Goal: Understanding of discharge needs will improve Outcome: Progressing Problem: Activity: Goal: Capacity to carry out activities will improve Outcome: Progressing Goal: Mobility will improve Outcome: Progressing Goal: Range of joint motion will improve Outcome: Progressing Problem: Lack of Knowledge: Goal: Verbalization of understanding the information provided will improve Outcome: Progressing Problem: Health Behavior: Goal: Ability to manage health-related needs will improve Outcome: Progressing Problem: Role Relationship: Goal: Ability to communicate needs accurately will improve Outcome: Progressing Goal: Ability to reevaluate and adapt role responsibilities will improve Outcome: Progressing Problem: Safety: Goal: Ability to remain free from injury will improve Outcome: Progressing Problem: Self-Care: Goal: Ability to participate in self-care as condition permits will improve Outcome: Progressing Goal: Verbalization of feelings and concerns over difficulty with self-care will improve Outcome: Progressing Goals: Clinical Goals for the Shift: monitor pain, neuro checks, VSS, rest/safety Summary: Patient pain managed with tylenol and oxycodone patient stating improvement in headache atthis time. Neuro checks stable. VSS. Patient resting in bed throughout the night. MRI completed tolerated well with pre-medication. Will continue to monitor MANAGER * Plan of Care - Destiny Wyman RN - 07/29/2021 5:49 PM CST Problem: Health Behavior: Goal: Understanding of discharge needs will improve Outcome: Progressing Problem: Activity: Goal: Capacity to carry out activities will improve Outcome: Progressing Goal: Mobility will improve Outcome: Progressing Goal: Range of joint motion will improve Outcome: Progressing Problem: Lack of Knowledge: Goal: Verbalization of understanding the information provided will improve Outcome: Progressing Problem: Health Behavior: Goal: Ability to manage health-related needs will improve Outcome: Progressing Problem: Role Relationship: Goal: Ability to communicate needs accurately will improve Outcome: Progressing Goal: Ability to reevaluate and adapt role responsibilities will improve Outcome: Progressing Problem: Safety: Goal: Ability to remain free from injury will improve Outcome: Progressing Problem: Self-Care: Goal: Ability to participate in self-care as condition permits will improve Outcome: Progressing Goal: Verbalization of feelings and concerns over difficulty with self-care will improve Outcome: Progressing Goals: Summary: vss, complains of headache not relieved by anything other than oxycodone. Neuro checks unchanged. Pt needed extensive education on managing stroke and risk factors. Glucose stable. NIH 1- ptwaxes and wanes on left visual neglect and blurriness. MRI ordered-checklist complete. Will continue to monitor and offer support as needed. MANAGER * ED Procedure Note - Shailesh Harper MD - 07/28/2021 8:50 PM CSTAssociated Order(s): ECG 12 lead Procedure ECG 12 lead Date/Time: 07/28/2021 8:50 PM Performed by: Shailesh Harper MD Authorized by: Shailesh Harper MD Comments: EKG shows sinus rhythm with a rate of 93. RAD present. There is evidence of an old anterior NH. Possible high lateral damage as well. Shailesh Harper MD 07/28/212049 MANAGER documented in this encounter Plan of Treatment Not on file documented as of this encounter Procedures Procedure Name Priority Date/Time Associated Diagnosis Comments TRANSTHORACIC ECHO (TTE) COMPLETE W DOPPLER/CF WO CONTRAST W BUBBLE Routine 07/30/2021 5:41 PM LOG MANAGER POCT GLUCOSE DEVICE Routine 07/30/2021 5 :02 PM LOG MANAGER POCT GLUCOSE DEVICE Routine 07/30/2021 1 2:08 PM LOG MANAGER US CAROTIDS DUPLEX BILATERAL IP Routine 07/30/2021 10:32 AM LOG MANAGER POCT GLUCOSE DEVICE Routine 07/30/2021 6 :11 AM LOG MANAGER MRI BRAIN WO CONTRAST IP Routine 07/29/2021 11:33 PM LOG MANAGER MRA HEAD WO CONTRAST IP Routine 07/29/2021 11:19 PM LOG MANAGER POCT GLUCOSE DEVICE Routine 07/29/2021 8 :42 PM LOG MANAGER POCT GLUCOSE DEVICE Routine 07/29/2021 4 :54 PM LOG MANAGER POCT GLUCOSE DEVICE Routine 07/29/2021 1 2:27 PM LOG MANAGER POCT GLUCOSE DEVICE Routine 07/29/2021 8 :14 AM LOG MANAGER HEMOGLOBIN A1C Routine 07/29/2021 6:11 AM LOG MANAGER LIPID PANEL Routine 07/29/2021 6:11 AM LOG MANAGER INFLUENZA A/B, RSV, AND COVID-19 PCR Routine 07/28/2021 10:[address] OUTSIDE CONSULT ED 07/28/2021 8: 36 PM LOG MANAGER ECG 12-LEAD STAT 07/28/2021 8:03 PM LOG MANAGER XR CHEST PA LATERAL 2 VIEWS ED 07/28/2021 7:[address] OUTSIDE REFERENCE ED 07/28/2021 7:25 PM LOG MANAGER EGFR STAT 07/28/2021 5:07 PM LOG MANAGER DIFFERENTIAL AUTO STAT 07/28/2021 5:0 7 PM LOG MANAGER CBC WITH AUTO DIFFERENTIAL STAT 07/28/2021 5:07 PM LOG MANAGER ERYTHROCYTE SEDIMENTATION RATE STAT 07/28/2021 5:07 PM LOG MANAGER CRP (ACUTE PHASE) STAT 07/28/2021 5:0 7 PM LOG MANAGER COMPREHENSIVE METABOLIC PANEL STAT 07/28/2021 5:07 PM LOG MANAGER documented in this encounter Results * TRANSTHORACIC ECHO (TTE) COMPLETE W DOPPLER/CF WO CONTRAST W BUBBLE (07/30/2021 5:41 PM LOG MANAGER) Anatomical Region Laterality Modality Ultrasound 07/30/2021 4:13 PM LOG MANAGER Narrative 07/30/2021 5:32 PM LOG MANAGER [facility] [address] [place] [address] ECHOCARDIOGRAM Patient Name: BALDEV ALVARADO : 1960 Study Date: 07/30/2021 4:13:32 PM Gender: M Tech: Location: [id number] Ref.Provider: JULIANE LANDIS Height(Cm): 168 BSA: 2.01 Weight(Kg): 86.2 Order Provider: JULIANE LANDIS Procedures: Echocardiographic Report: Transthoracic Echocardiogram with 2D, M-Mode, Spectral and Color Flow Doppler examination and saline contrast study. Indications: Cerebrovascular accident. Measurements: 2D/M Mode ? Doppler ? Measurement ?Value ?Normal Range ?Measurement ?Value ?Normal Range ? IVSd 2D ?1.14 ? [ 0.60 - 0.90 ] cm ?AV Peak Ramesh ?1.3 ?[ 1.0 - 1.7 ] m/s ? LVIDd 2D ? 4.47 ? [ 4.20 - 5.90 ] cm ?AV Peak PG ? 7 ?[ 2 - 9 ] mmHg ? LVIDs 2D ? 3.59 ? [ 2.30 - 3.90 ] cm ?AV Mean PG ? 4 ?[ 2 - 4 ] mmHg ? LVPWd 2D ? 1.12 ? [ 0.60 - 1.00 ] cm ?AV VTI ? 24.9 ? cm ? Estimated EF ? 40.00 ?% ? CHRISTINA VTI ?3.0 ?[ 2.0 - 4.0 ] cm2 ? LA Dimension 2D ?3.96 ? [ 3.00 - 4.00 ] cm ?LVOT Peak Ramesh ?1.26 ? [ 0.70 - 1.10 ] m/s ? AoR Diam 2D ?3.43 ? [ 2.60 - 3.70 ] cm ?LVOT Diam ?2.0 ?[ 1.7 - 2.1 ] cm ? TAPSE ?1.23 ? [ 1.60 - 3.00 ] cm ?LVOT VTI ? 24.8 ? [ 20.0 - 30.0 ] cm ?MV Peak PG ? 5 ?[ 1 - 10 ] mmHg ?MV Mean PG ? 2 ?[ <= 5 ] mmHg ?MV E Peak Ramesh ?0.8 ?[ 0.6 - 1.3 ] m/s ?MV A Peak Ramesh ?1.0 ?[ 1.0 - 1.2 ] m/s ?MV PHT ? 95.0 ? [ 20.0 - 100.0 ] ms ?MV Decel Time ?220.2 ?[ 104.0 - 258.0 ] ms ?MVA PHT ?2.3 ?[ 2.0 - 4.0 ] ms ?MV E/A Ratio ? 0.8 ?PV Peak Ramesh ?1.0 ?[ 0.4 - 0.8 ] m/s ?PV Peak PG ? 4 ?mmHg ?Lat E` Ramesh ? 0.08 ? [ 0.10 - 0.15 ] m/s ?Sept E' Ramesh ?0.04 ? [ 0.08 - 0.15 ] m/s ?E/E` ? 10.00 ?RV S' ?0.09 ? m/s ? - Findings: Study Quality: The study was technically adequate. BP: Blood pressure: 140/85 mmHg. Left Ventricle: Moderate left ventricular systolic dysfunction. Ejection Fraction is estimated at 40 %. Diastolic indices overall most consistent with Grade I diastolic dysfunction (impaired myocardial relaxation without elevated filling pressures). Normal left ventricular cavity size. LV wall thickness is within normal limits. Resting Segmental Wall Motion Analysis: Total wall motion score is 1.53. There is akinesis of the apical cap. There is akinesis of the apical inferior to apical inferoseptal wall. There is akinesis of the mid anteroseptal wall. There is mild hypokinesis of the apical anterior wall. The remaining left ventricular segments demonstrate normal wall motion. Right Ventricle: Normal right ventricular systolic function. Normal right ventricular size. Left Atrium: There is mild enlargement of the left atrium. Right Atrium: The right atrium is normal in size. Atrial Septum: Saline contrast study positive for R to L shunt consistent with PFO. Mitral Valve: Normal appearance of the mitral valve leaflets. There is no mitral regurgitation. Aortic Valve: Normal appearance of the aortic valve. Aortic valve appears tricuspid in configuration. There is no aortic stenosis. Mild aortic valve regurgitation. Tricuspid Valve: Grossly normal appearing tricuspid valve. Trace tricuspid regurgitation. TR envelope inadequate to estimate RVSP. Pulmonic Valve: Grossly normal appearing pulmonic valve. There is no pulmonic stenosis. Pericardium: No significant pericardial effusion. Aortic Root and Aorta: The sinuses of Valsalva are normal. Aortic Arch: There is mild aortic arch enlargement (3.8 cm). IVC: Normal appearance of the inferior vena cava. Exam Interpreted: Read by Ele[employer]ator [employer] of the day to expedite patient care. Conclusions: 1. Moderate left ventricular systolic dysfunction. Ejection Fraction is estimated at 40 %. Diastolic indices overall most consistent with Grade I diastolic dysfunction (impaired myocardial relaxation without elevated filling pressures). Normal left ventricular cavity size. LV wall thickness is within normal limits. 2. Resting Segmental Wall Motion Analysis: Total wall motion score is 1.53. There is akinesis of the apical cap. There is akinesis of the apical inferior to apical inferoseptal wall. There is akinesis of the mid anteroseptal wall. There is mild hypokinesis of the apical anterior wall. The remaining left ventricular segments demonstrate normal wall motion. 3. Normal right ventricular systolic function. Normal right ventricular size. 4. There is mild enlargement of the left atrium. 5. Saline contrast study positive for R to L shunt consistent with PFO. 6. Mild aortic valve regurgitation. 7. Trace tricuspid regurgitation. TR envelope inadequate to estimate RVSP. 8. There is mild aortic arch enlargement (3.8 cm). 9. Given indication is CVA, and significant apical akinesis in the LV, consider repeat limited echo with contrast to evaluate thrombus. Electronically Signed By: Singh Akers MD [facility] 2021-07-30 17:32:43 LOG MANAGER CC: CC: Wall Motion Analysis - Resting Procedure Note Singh Akers MD - 07/30/2021 [facility] [address] [place] [address] ECHOCARDIOGRAM Patient Name: BALDEV ALVARADOPatient ID: [id number] : [id number] Date: 07/30/2021 4:13:32 PM Gender: MAccession #: [id number] Tech: GMLocation: [id number] Ref.Provider: JULIANE LANDISHeight(Cm): 168 BSA: 2.01Weight(Kg): 86.2 Order Provider: JULIANE LANDIS Procedures: Echocardiographic Report: Transthoracic Echocardiogram with 2D, M-Mode, Spectral and Color FlowDoppler examination and saline contrast study. Indications: Cerebrovascular accident. Measurements: 2D/M Mode Doppler Measurement Value Normal Range Measurement ValueNormal Range IVSd 2D 1.14 [ 0.60 - 0.90 ] cm AV Peak Ramesh 1.3[ 1.0 - 1.7 ] m/s LVIDd 2D 4.47 [ 4.20 - 5.90 ] cm AV Peak PG 7[ 2 - 9 ] mmHg LVIDs 2D 3.59 [ 2.30 - 3.90 ] cm AV Mean PG 4[ 2 - 4 ] mmHg LVPWd 2D 1.12 [ 0.60 - 1.00 ] cm AV VTI 24.9cm Estimated EF 40.00 % CHRISTINA VTI 3.0[ 2.0 - 4.0 ] cm2 LA Dimension 2D 3.96 [ 3.00 - 4.00 ] cm LVOT Peak Ramesh 1.26[ 0.70 - 1.10 ] m/s AoR Diam 2D 3.43 [ 2.60 - 3.70 ] cm LVOT Diam 2.0[ 1.7 - 2.1 ] cm TAPSE 1.23 [ 1.60 - 3.00 ] cm LVOT VTI 24.8[ 20.0 - 30.0 ] cm MV Peak PG 5[ 1 - 10 ] mmHg MV Mean PG 2[ <= 5 ] mmHg MV E Peak Ramesh 0.8[ 0.6 - 1.3 ] m/s MV A Peak Ramesh 1.0[ 1.0 - 1.2 ] m/s MV PHT 95.0[ 20.0 - 100.0 ] ms MV Decel Time 220.2[ 104.0 - 258.0 ] ms MVA PHT 2.3[ 2.0 - 4.0 ] ms MV E/A Ratio 0.8 PV Peak Ramesh 1.0[ 0.4 - 0.8 ] m/s PV Peak PG 4mmHg Lat E` Ramesh 0.08[ 0.10 - 0.15 ] m/s Sept E' Ramesh 0.04[ 0.08 - 0.15 ] m/s E/E` 10.00 RV S' 0.09m/s - Findings: Study Quality: The study was technically adequate. BP: Blood pressure: 140/85 mmHg. Left Ventricle: Moderate left ventricular systolic dysfunction. Ejection Fraction isestimated at 40 %. Diastolic indices overall most consistent with Grade I diastolicdysfunction (impaired myocardial relaxation without elevated filling pressures). Normal leftventricular cavity size. LV wall thickness is within normal limits. Resting Segmental Wall Motion Analysis: Total wall motion score is 1.53. There is akinesis of the apical cap.There is akinesis of the apical inferior to apical inferoseptal wall. There is akinesis ofthe mid anteroseptal wall. There is mild hypokinesis of the apical anterior wall.The remaining left ventricular segments demonstrate normal wall motion. Right Ventricle: Normal right ventricular systolic function. Normal right ventricularsize. Left Atrium: There is mild enlargement of the left atrium. Right Atrium: The right atrium is normal in size. Atrial Septum: Saline contrast study positive for R to L shunt consistent with PFO. Mitral Valve: Normal appearance of the mitral valve leaflets. There is no mitralregurgitation. Aortic Valve: Normal appearance of the aortic valve. Aortic valve appears tricuspid inconfiguration. There is no aortic stenosis. Mild aortic valve regurgitation. Tricuspid Valve: Grossly normal appearing tricuspid valve. Trace tricuspid regurgitation.TR envelope inadequate to estimate RVSP. Pulmonic Valve: Grossly normal appearing pulmonic valve. There is no pulmonic stenosis. Pericardium: No significant pericardial effusion. Aortic Root and Aorta: The sinuses of Valsalva are normal. Aortic Arch: There is mild aortic arch enlargement (3.8 cm). IVC: Normal appearance of the inferior vena cava. Exam Interpreted: Read by [employer] of the day to expedite patient care. Conclusions: 1. Moderate left ventricular systolic dysfunction. Ejection Fraction isestimated at 40 %. Diastolic indices overall most consistent with Grade I diastolicdysfunction (impaired myocardial relaxation without elevated filling pressures). Normal leftventricular cavity size. LV wall thickness is within normal limits. 2. Resting Segmental Wall Motion Analysis: Total wall motion score is1.53. There is akinesis of the apical cap. There is akinesis of the apical inferior toapical inferoseptal wall. There is akinesis of the mid anteroseptal wall. Thereis mild hypokinesis of the apical anterior wall. The remaining left ventricularsegments demonstrate normal wall motion. 3. Normal right ventricular systolic function. Normal right ventricularsize. 4. There is mild enlargement of the left atrium. 5. Saline contrast study positive for R to L shunt consistent with PFO. 6. Mild aortic valve regurgitation. 7. Trace tricuspid regurgitation. TR envelope inadequate to estimateRVSP. 8. There is mild aortic arch enlargement (3.8 cm). 9. Given indication is CVA, and significant apical akinesis in the LV,consider repeat limited echo with contrast to evaluate thrombus. Electronically Signed By: Singh Akers MD [facility] 2021-07-30 17:32:43 LOG MANAGER CC: CC: Wall Motion Analysis - Resting us Juliane Landis MD CV ECHO PROCEDURES Final Resu lt * POCT glucose (07/30/2021 5:02 PM LOG MANAGER) [facility] Glucose, POC 118 70 - 140 mg/dL [facility] Comment: For Glucose values <35 mg/dl when Hematocrit is >60 mg/dl,the test may not accurately detect significant hypoglycemia,and testing in the Laboratory should be considered if clinically indicated. Blood 07/30/2021 5:02 PM LOG MANAGER 07/30/2021 5:02 PM LOG MANAGER Ras Pierson MD LAB POCT ORDERABLES - DEVICE Final Result [facility] [address] Department [place] [address] * POCT glucose (07/30/2021 12:08 PM LOG MANAGER) [facility] Glucose, POC 102 70 - 140 mg/dL [facility] Comment: For Glucose values <35 mg/dl when Hematocrit is >60 mg/dl,the test may not accurately detect significant hypoglycemia,and testing in the Laboratory should be considered if clinically indicated. Blood 07/30/2021 12:0 8 PM LOG MANAGER 07/30/2021 12:08 PM LOG MANAGER us Ras Pierson MD LAB POCT ORDERABLES - DEVICE Final Result [facility] [address] Department [place] [address] * US Carotids Duplex Bilateral (07/30/2021 10:32 AM LOG MANAGER) Anatomical Region Laterality Modality Vascular Bilateral Ultrasound 07/31/2021 1:35 PM LOG MANAGER Impressions 07/31/2021 1:35 PM LOG MANAGER 1) ??Right carotid system demonstrates 0-49% diameter stenosis of the internal carotid artery. 2) ??Left carotid system demonstrates 0-49% diameter stenosis of the internal carotid artery. 3) ??Vertebral arteries demonstrate antegrade flow on the right, and antegrade flow on the left. 4) ??No comparision available. Electronically signed by: Robby Harvey M.D. Narrative 07/31/2021 1:35 PM LOG MANAGER DATE:07/30/2021 2:45 PM EXAM: Duplex imaging of the carotid arteries. INDICATION: Stroke. COMPARISON STUDY DATE: None available IMAGE QUALITY: Good FINDINGS: RIGHT SIDE: B/P: 140 Right: B-mode imaging demonstrates dense plaque formation within the right common carotid artery. Peak systolic velocity was 66 cm/sec. Then plaque is noted in the right proximal internal carotid artery with a peak systolic velocity of 69 cm/ sec, end diastolic velocity of 20 and ICA/CCA ratio of 1.0. The right external carotid artery has a peak systolic velocity of 87 cm/sec. The right vertebral artery demonstrates antegrade flow. Incidental findings: None LEFT SIDE: B/P: Not recorded Left: B-mode imaging demonstrates dense plaque formation within the left common carotid artery. Peak systolic velocity is 70 cm/sec. Dense plaque is noted in the left proximal internal carotid artery with a peak systolic velocity of 63 cm/sec, end diastolic velocity of 22 cm/sec and ICA/CCA ratio of 0.9. The left external carotid artery has a peak systolic velocity of 84 cm/sec. The left vertebral artery demonstrates antegrade flow. Incidental findings:None Procedure Note Robby Harvey MD - 07/31/2021 DATE:07/30/2021 2:45 PM EXAM: Duplex imaging of the carotid arteries. INDICATION: Stroke. COMPARISON STUDY DATE: None available IMAGE QUALITY: Good FINDINGS: RIGHT SIDE: B/P: 140 Right: B-mode imaging demonstrates dense plaque formation within the right common carotid artery. Peak systolic velocity was 66 cm/sec. Then plaque is noted in the right proximal internal carotid artery with a peak systolic velocity of 69 cm/ sec, end diastolic velocity of 20 and ICA/CCA ratio of 1.0. The right external carotid artery has a peak systolic velocity of 87 cm/sec. The right vertebral artery demonstrates antegrade flow. Incidental findings: None LEFT SIDE: B/P: Not recorded Left: B-mode imaging demonstrates dense plaque formation within the left common carotid artery. Peak systolic velocity is 70 cm/sec. Dense plaque is noted in the left proximal internal carotid artery with a peak systolic velocity of 63 cm/sec, end diastolic velocity of 22 cm/sec and ICA/CCA ratio of 0.9. The left external carotid artery has a peak systolic velocity of 84 cm/sec. The left vertebral artery demonstrates antegrade flow. Incidental findings:None IMPRESSION: 1) Right carotid system demonstrates 0-49% diameter stenosis of the internal carotid artery. 2) Left carotid system demonstrates 0-49% diameter stenosis of the internal carotid artery. 3) Vertebral arteries demonstrate antegrade flow on the right, and antegrade flow on the left. 4) No comparision available. Electronically signed by: Robby Harvey M.D. us Juliane Landis MD IMG US PROCEDURES Final Resul t * POCT glucose (07/30/2021 6:11 AM LOG MANAGER) [facility] Signature Glucose, POC 97 70 - 140 mg/dL [facility] Comment: For Glucose values <35 mg/dl when Hematocrit is >60 mg/dl,the test may not accurately detect significant hypoglycemia,and testing in the Laboratory should be considered if clinically indicated. Blood 07/30/2021 6:11 AM LOG MANAGER 07/30/2021 6:11 AM LOG MANAGER Ras Pierson MD LAB POCT ORDERABLES - DEVICE Final Result [facility] [address] Department [place] [address] * MRI Brain WO Contrast (07/29/2021 11:33 PM LOG MANAGER) Anatomical Region Laterality Modality Head and Neck N/A Magnetic Resonan ce 07/30/2021 9:23 AM LOG MANAGER Impressions 07/30/2021 9:23 AM LOG MANAGER 1. ??Posterior right temporal and occipital lobe acute infarct in the distribution of the right [employer] PROGRAM COORDINATOR. 2. ??Right parietal small acute infarct. 3. ??Right thalamus and left pontine chronic infarcts. 4. ??Mild microvascular ischemic white matter change. Electronically signed by: Wally Perez M.D. Narrative 07/30/2021 9:23 AM LOG MANAGER MRI BRAIN WO CONTRAST 07/29/2021 10:35 PM CLINICAL INDICATION: Stroke, follow up. ?? COMPARISON: CT head dated 07/27/2021. TECHNIQUE: Multiplanar multisequence MRI of the brain was performed without contrast. ??Portions of the study are degraded by motion. FINDINGS: CEREBRAL PARENCHYMA: Acute infarct in the posterior right temporal and occipital lobes in the distribution of the right [employer] SCI[employer]ES PROGRAM COORDINATOR. ??Small acute infarct in the right parietal lobe. ??No intracranial hemorrhage or midline shift. ??Punctate right thalamus chronic infarct. CSF SPACES: Mildly dilated ventricles and cortical sulci. ??Mild mass effect on the trigone of the right lateral ventricle, likely from adjacent vasogenic edema. ??Basal cisterns patent. WHITE MATTER: Mild subcortical and periventricular FLAIR/T2 signal intensities likely represent microvascular ischemic white matter change. VASCULAR STRUCTURES: Preservation of normal flow voids in the major intracranial vessels. POSTERIOR FOSSA: Left pontine chronic infarct. ??No acute findings in the posterior fossa. SELLA AND SUPRASELLAR STRUCTURES: Normal. BONES/SCALP: Normal. VISUALIZED PARANASAL SINUSES/MASTOID AIR CELLS: Minimal scattered paranasal sinus mucosal thickening. ??Mastoid air cells clear. ORBITS: Visualized orbits are normal. OTHER: None. Procedure Note Wally Perez MD - 07/30/2021 MRI BRAIN WO CONTRAST 07/29/2021 10:35 PM CLINICAL INDICATION: Stroke, follow up. COMPARISON: CT head dated 07/27/2021. TECHNIQUE: Multiplanar multisequence MRI of the brain was performed without contrast. Portions of the study are degraded by motion. FINDINGS: CEREBRAL PARENCHYMA: Acute infarct in the posterior right temporal and occipital lobes in the distribution of the right [employer] SCI[employer]ES PROGRAM COORDINATOR. Small acute infarct in the right parietal lobe. No intracranial hemorrhage or midline shift. Punctate right thalamus chronic infarct. CSF SPACES: Mildly dilated ventricles and cortical sulci. Mild mass effect on the trigone of the right lateral ventricle, likely from adjacent vasogenic edema. Basal cisterns patent. WHITE MATTER: Mild subcortical and periventricular FLAIR/T2 signal intensities likely represent microvascular ischemic white matter change. VASCULAR STRUCTURES: Preservation of normal flow voids in the major intracranial vessels. POSTERIOR FOSSA: Left pontine chronic infarct. No acute findings in the posterior fossa. SELLA AND SUPRASELLAR STRUCTURES: Normal. BONES/SCALP: Normal. VISUALIZED PARANASAL SINUSES/MASTOID AIR CELLS: Minimal scattered paranasal sinus mucosal thickening. Mastoid air cells clear. ORBITS: Visualized orbits are normal. OTHER: None. IMPRESSION: 1. Posterior right temporal and occipital lobe acute infarct in the distribution of the right HE[employer] SCIENCES PROGRAM COORDINATOR. 2. Right parietal small acute infarct. 3. 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 4. Mild microvascular ischemic white matter change. Electronically signed by: Wally Perez M.D. us Juliane Landis MD IM MRI PROCEDURES Final Resu lt * MRA Head WO Contrast (07/29/2021 11:19 PM LOG MANAGER) Anatomical Region Laterality Modality Head and Neck N/A Magnetic Resonan ce 07/30/2021 9:31 AM LOG MANAGER Impressions 07/30/2021 9:31 AM LOG MANAGER 1. ??Motion degraded exam. 2. ??No large vessel occlusion. 3. ??Small focal severe stenosis along the distal right MCA M1 segment. 4. ??Evaluation of the distal posterior cerebral arteries is limited by motion. Electronically signed by: Wally Perez M.D. Narrative 07/30/2021 9:31 AM LOG MANAGER MRA HEAD WITHOUT CONTRAST 07/29/2021. CLINICAL INDICATION: Stroke, follow up. ?? COMPARISON:MRI brain dated 07/29/2021. ?? TECHNIQUE: MR arteriography of the head was performed without contrast utilizing time of flight technique. 3D/MIP reformatted images were generated. ??Study is degraded by motion FINDINGS: The distal internal carotid arteries are patent. The anterior cerebral arteries are patent. ??The left MCA M1 segment is patent. The proximal left MCA M2 segments are patent. ??There is a small focal area of severe stenosis along the distal right MCA M1 segment. ??The proximal right MCA M2 segments are patent. The distal vertebral arteries are patent. The basilar artery is patent. ??Both posterior cerebral arteries arise from the basilar artery. ??The proximal segments of the posterior cerebral arteries are patent. Evaluation of the P4 segments is limited. ??No aneurysm or vascular malformation is identified. ?? Procedure Note Wally Perez MD - 07/30/2021 MRA HEAD WITHOUT CONTRAST 07/29/2021. CLINICAL INDICATION: Stroke, follow up. COMPARISON:MRI brain dated 07/29/2021. TECHNIQUE: MR arteriography of the head was performed without contrast utilizing time of flight technique. 3D/MIP reformatted images were generated. Study is degraded by motion FINDINGS: The distal internal carotid arteries are patent. The anterior cerebral arteries are patent. The left MCA M1 segment is patent. The proximal left MCA M2 segments are patent. There is a small focal area of severe stenosis along the distal right MCA M1 segment. The proximal right MCA M2 segments are patent. The distal vertebral arteries are patent. The basilar artery is patent. Both posterior cerebral arteries arise from the basilar artery. The proximal segments of the posterior cerebral arteries are patent. Evaluation of the P4 segments is limited. No aneurysm or vascular malformation is identified. IMPRESSION: 1. Motion degraded exam. 2. No large vessel occlusion. 3. Small focal severe stenosis along the distal right MCA M1 segment. 4. Evaluation of the distal posterior cerebral arteries is limited by motion. Electronically signed by: Wally Perez M.D. Juliane Landis MD IMG MRI PROCEDURES Final Resu lt * POCT glucose (07/29/2021 8:42 PM LOG MANAGER) Glucose, POC 113 70 - 140 mg/dL [facility] Comment: For Glucose values <35 mg/dl when Hematocrit is >60 mg/dl,the test may not accurately detect significant hypoglycemia,and testing in the Laboratory should be considered if clinically indicated. Blood 07/29/2021 8:42 PM LOG MANAGER 07/29/2021 8:42 PM LOG MANAGER Ras Pierson MD LAB POCT ORDERABLES - DEVICE Final Result Performing Organization Address [facility] Co de Phone Number [facility] [email or web address] [place], [place] [id number] * POCT glucose (07/29/2021 4:54 PM LOG MANAGER) Glucose, POC 121 70 - 140 mg/dL [facility] Comment: For Glucose values <35 mg/dl when Hematocrit is >60 mg/dl,the test may not accurately detect significant hypoglycemia,and testing in the Laboratory should be considered if clinically indicated. Blood 07/29/2021 4:54 PM LOG MANAGER 07/29/2021 4:54 PM LOG MANAGER Ras Pierson MD LAB POCT ORDERABLES - DEVICE Final Result Performing Organization Address [facility]/ZIP Co de Phone Number [facility] [address] [facility] [place], [place] [id number] * POCT glucose (07/29/2021 12:27 PM LOG MANAGER) Glucose, POC 130 70 - 140 mg/dL [facility] Comment: For Glucose values <35 mg/dl when Hematocrit is >60 mg/dl,the test may not accurately detect significant hypoglycemia,and testing in the Laboratory should be considered if clinically indicated. Blood 07/29/2021 12:2 7 PM LOG MANAGER 07/29/2021 12:27 PM LOG MANAGER Result [facility] Ras Pierson MD LAB POCT ORDERABLES - DEVICE Final Result Performing Organization Address [facility] de Phone Number [facility] [address] [facility] [place] [address] * POCT glucose (07/29/2021 8:14 AM LOG MANAGER) Glucose, POC 110 70 - 140 mg/dL [facility] Comment: For Glucose values <35 mg/dl when Hematocrit is >60 mg/dl,the test may not accurately detect significant hypoglycemia,and testing in the Laboratory should be considered if clinically indicated. Blood 07/29/2021 8:14 AM LOG MANAGER 07/29/2021 8:14 AM LOG MANAGER Result [facility] Ras Pierson MD LAB POCT ORDERABLES - DEVICE Final Result Performing Organization Address [facility] de Phone Number [facility] [address] [facility] [place] [address] * (ABNORMAL) Hemoglobin A1c (07/29/2021 6:11 AM LOG MANAGER) Pathologist [facility] Hgb A1C 10.5(H) 4.0 - 5.6 % [facility] Estimated Average Glucose 255 mg/dL [facility] Comment: The ADA recommends reporting an estimated Average Glucose (eAG) with all Hemoglobin A1c results using the equation derived from a study of 507 normal and diabetic adults. ??Minority populations were underrepresented and children were not included. ?? (Diabetes Care 31:6995-5174, 2008). ??The eAG is not equivalent to a fasting glucose. Blood 07/29/2021 6:11 AM LOG MANAGER 07/29/2021 6:34 AM LOG MANAGER Result [facility] Alexandru Osman MD LAB BLOOD ORDERABLES Final Result Performing Organization Address [facility] Co de Phone Number [facility] [address] Department [place] [address] * (ABNORMAL) Lipid panel (07/29/2021 6:11 AM LOG MANAGER) Cholesterol 173 30 - 199 mg/dL [facility] Comment: Interpretive Data Ages < or = 19 years ??Acceptable: ? <170 mg/dL ??Borderline high: ??170-199 mg/dL ??High: ? >or= 200 mg/dL Ages > or = 20 years ??Desirable: ?<200 mg/dL ??Borderline high: ??200-239 mg/dL ??High: ? >or= 240 mg/dL Literature References: 1. Expert Panel on Integrated Guidelines for Cardiovascular Health and Risk Reduction in Children and Adolescents. Pediatrics 2011;128:S213 2. NCEP Expert Panel. Circulation 2004;110:227 Current Interpretive Data was last revised on 2018. Triglycerides 160(H) <=149 mg/dL [facility] Comment: Interpretive Data Ages < or = 9 years ??Acceptable: ? <75 mg/dL ??Borderline high: ??75-99 mg/dL ??High: ? >or= 100 mg/dL Ages 10 to 20 years ??Acceptable: ? <90 mg/dL ??Borderline high: ??90-129 mg/dL ??High: ? >or= 130 mg/dL Ages > or = 20 years ??Desirable: ?<150 mg/dL ??Borderline high: ??150-199 mg/dL ??High: ? 200-499 mg/dL ?Very high: ?? >or= 499 mg/dL Literature References: 1. Expert Panel on Integrated Guidelines for Cardiovascular Health and Risk Reduction in Children and Adolescents. Pediatrics 2011;128:S213 2. NCEP Expert Panel. Circulation 2004;110:227 Current Interpretive Data was last revised on 2018. HDL 40 >=40 mg/dL [facility] Comment: Interpretive Data Ages < or = 19 years ??Acceptable: ? >45 mg/dL ??Borderline low: ?? 40-45 mg/dL ??Low: ? <40 mg/dL Ages > or = 20 years ??Desirable: ?>or= 60 mg/dL ??Low: ? <40 mg/dL Literature References: 1. Expert Panel on Integrated Guidelines for Cardiovascular Health and Risk Reduction in Children and Adolescents. Pediatrics 2011;128:S213 2. NCEP Expert Panel. Circulation 2004;110:227 Current Interpretive Data was last revised on 2018. LDL, calculated 101 <=129 mg/dL [facility] Comment: Interpretive Data Ages < or = 19 years ??Acceptable: ? <110 mg/dL ??Borderline high: ??110-129 mg/dL ??High: ?>or= 130 mg/dL Ages > or = 20 years ??Optimal: ? <100 mg/dL ??Near optimal: ?100-129 mg/dL ??Borderline high: ?? 130-159 mg/dL ??High: ?>160 mg/dL Literature References: 1. Expert Panel on Integrated Guidelines for Cardiovascular Health and Risk Reduction in Children and Adolescents. Pediatrics 2011;128:S213 2. NCEP Expert Panel. Circulation 2004;110:227 Current Interpretive Data was last revised on 2018. Non-HDL Cholesterol 133 mg/dL [facility] Comment: Interpretive Data Ages < or = 19 years ??Acceptable: ?<120 mg/dL ??Borderline high: ??120-144 mg/dL ??High: ?>145 mg/dL Ages > or = 20 years ??When triglycerides are >200 mg/dL, Non-HDL cholesterol is a secondary target of ? therapy with treatment goals that are 30 mg/dL greater than the LDL cholesterol target. ? Literature References: 1. Expert Panel on Integrated Guidelines for Cardiovascular Health and Risk Reduction in Children and Adolescents. Pediatrics 2011;128:S213 2. NCEP Expert Panel. Circulation 2004;110:227 Current Interpretive Data was last revised on 2018. Chol/HDL ratio 4 [facility] Blood 07/29/2021 6:11 AM LOG MANAGER 07/29/2021 6:34 AM LOG MANAGER us Alexandru Osman MD LAB BLOOD ORDERABLES Final Result [facility] [address] Department [place] [address] * Influenza A/B, RSV, and COVID-19 PCR Nasopharyngeal (07/28/2021 10:31 PM LOG MANAGER) COVID-19 RNA Negative Negative [facility] Influenza A RNA Negative Negative [facility] Influenza B RNA Negative Negative [facility] RSV RNA Negative Negative [facility] Comment: Interpretive data: This test is performed using the [employer] Xpert Xpress CoV-2/Flu/RSV plus assay. This is a multiplex, real-time reverse transcriptase PCR assay intended for the qualitative detection of nucleic acid from SARS-CoV-2, influenza A, influenza B, and respiratory syncytial virus. This assay has been reviewed by the FDA for Emergency Use Authorization (EUA). The performance characteristics have been verified by the performing laboratory. Results must be considered in the clinical context, and a negative result does not rule out infection. Interpretive Data last revised 2021. First COVID-19 test? No [facility] Employeed in healthcare? No [facility] Group care resident? Unknown [facility] Hospitalized? Yes [facility] Is patient in ICU? No [facility] Symptomatic as defined by CDC? No [facility] Nasopharyngeal 07/28/2021 10 :31 PM LOG MANAGER 07/28/2021 11:02 PM LOG MANAGER Narrative [facility] - 07/28/2021 11:46 PM LOG MANAGER Reason for testing?->Bed placement or semi-private room Known exposure to confirmed or suspected COVID-19 case?->No us Shailesh Harper MD LAB MICROBIOLOGY - GENERAL O RDERABLES Final Result [facility] [address] Department [place] [address] * CT Outside Consult (07/28/2021 8:36 PM LOG MANAGER) Anatomical Region Laterality Modality N/A Computed Tomogra phy 07/28/2021 8:36 PM LOG MANAGER Impressions 07/29/2021 7:32 AM LOG MANAGER 1. ??Loss of thorne-white differentiation in the right temporal-occipital lobe suggestive of evolving infarct. 2. ??Small bilateral hypodensities may represent chronic lacunar infarcts. 3. ??Possible small left pontine infarct. 4. ??No intracranial hemorrhage. For the purposes of quality systems manager, this study was initially interpreted by teleradiology. ??There is no significant discrepancy. Electronically signed by: Wally Perez M.D. Narrative 07/29/2021 7:[address] OUTSIDE CONSULT 07/28/2021 7:35 PM CLINICAL INDICATION: Stroke. ?? COMPARISON:None. TECHNIQUE: CT of the head was performed without contrast. Coronal and sagittal reformatted images were generated. FINDINGS: CEREBRAL PARENCHYMA: Loss of thorne-white white differentiation in the right temporal-occipital lobe suggestive of evolving infarct in the distribution of the right posterior cerebral artery. ??Small bilateral basal ganglia hypodensities may represent chronic lacunar infarcts. No intracranial hemorrhage, mass or mass effect. CSF SPACES: Mildly dilated ventricles. ??Cortical sulci normal in size and configuration. WHITE MATTER: Mild subcortical and periventricular hypodensities likely represent microvascular ischemic white matter change. VASCULAR STRUCTURES: Calcification along the carotid siphons and intracranial vertebral arteries. POSTERIOR FOSSA: Small round hypodensity along the left side of the westley (axial image 11); infarct not excluded. ??Otherwise, no acute abnormality identified in the posterior fossa. SELLA AND SUPRASELLAR STRUCTURES: Normal. BONES/SCALP: Calvarium intact. VISUALIZED PARANASAL SINUSES/MASTOID AIR CELLS: Clear. ORBITS: Normal. OTHER: None. Procedure Note Wally Perez MD - 07/29/2021 CT OUTSIDE CONSULT 07/28/2021 7:35 PM CLINICAL INDICATION: Stroke. COMPARISON:None. TECHNIQUE: CT of the head was performed without contrast. Coronal and sagittal reformatted images were generated. FINDINGS: CEREBRAL PARENCHYMA: Loss of thorne-white white differentiation in the right temporal-occipital lobe suggestive of evolving infarct in the distribution of the right posterior cerebral artery. Small bilateral basal ganglia hypodensities may represent chronic lacunar infarcts. No intracranial hemorrhage, mass or mass effect. CSF SPACES: Mildly dilated ventricles. Cortical sulci normal in size and configuration. WHITE MATTER: Mild subcortical and periventricular hypodensities likely represent microvascular ischemic white matter change. VASCULAR STRUCTURES: Calcification along the carotid siphons and intracranial vertebral arteries. POSTERIOR FOSSA: Small round hypodensity along the left side of the westley (axial image 11); infarct not excluded. Otherwise, no acute abnormality identified in the posterior fossa. SELLA AND SUPRASELLAR STRUCTURES: Normal. BONES/SCALP: Calvarium intact. VISUALIZED PARANASAL SINUSES/MASTOID AIR CELLS: Clear. ORBITS: Normal. OTHER: None. IMPRESSION: 1. Loss of thorne-white differentiation in the right temporal-occipital lobe suggestive of evolving infarct. 2. Small bilateral hypodensities may represent chronic lacunar infarcts. 3. Possible small left pontine infarct. 4. No intracranial hemorrhage. For the purposes of quality systems manager, this study was initially interpreted by teleradiology. There is no significant discrepancy. Electronically signed by: Wally Perez M.D. Shailesh Harper MD IM CT PROCEDURES Final Resu lt * ECG 12 lead (07/28/2021 8:03 PM LOG MANAGER) 07/28/2021 8:03 PM LOG MANAGER Narrative [facility] - 07/29/2021 10:27 AM LOG MANAGER Vent Rate: 93 bpm RR Interval: 642 msec [place] Interval: 190 msec QRS Duration: 104 msec QT Interval: 355 msec QTC Interval: 406 msec P-R-T [place]: 68 - 99 - 103 degrees SINUS RHYTHM BORDERLINE RIGHT AXIS DEVIATION ANTEROSEPTAL MYOCARDIAL INFARCTION , probably old; clinical correlation advised ABNORMAL ECG Electronically Signed By: Laly Sánchez MD, [facility] Shailesh Harper MD ECG ORDERABLES Final Result [facility] * XR Chest Pa Lateral 2 Vw (07/28/2021 7:50 PM LOG MANAGER) Anatomical Region Laterality Modality Body, Chest N/A Computed Radiogr aphy 07/29/2021 8:18 AM LOG MANAGER Impressions 07/29/2021 8:18 AM LOG MANAGER Comparison made to 05/31/2021. Sternotomy wires are midline. ??There are multiple surgical clips within the mediastinum. Multifocal airspace opacities as seen on chest radiograph from May 2021 have resolved. ??No new areas of consolidation. ??There is no pleural effusion. ??No pneumothorax. ??Changes of emphysema are noted in the lung apices. ??Stable cardiomediastinal silhouette. Electronically signed by: Ailyn German M.D. Narrative 07/29/2021 8:18 AM LOG MANAGER EXAMINATION: 2 view chest radiograph Procedure Note Ailyn German MD - 07/29/2021 EXAMINATION: 2 view chest radiograph IMPRESSION: Comparison made to 05/31/2021. Sternotomy wires are midline. There are multiple surgical clips within the mediastinum. Multifocal airspace opacities as seen on chest radiograph from May 2021 have resolved. No new areas of consolidation. There is no pleural effusion. No pneumothorax. Changes of emphysema are noted in the lung apices. Stable cardiomediastinal silhouette. Electronically signed by: Ailyn German M.D. Shailesh Harper MD IMG XR PROCEDURES Final Resu lt * CT Outside Reference (07/28/2021 7:25 PM LOG MANAGER) Narrative RAD_PACS_OUTSIDE_FILM_[facility] - 07/28/2021 7:25 PM LOG MANAGER This order has been auto-finalized and does not contain a result. Shailesh Harper MD IMG CT PROCEDURES Final Resu lt Performing Organization Address [facility] de Phone Number [email or web address]_[facility] * CRP (acute phase) (07/28/2021 5:07 PM LOG MANAGER) CRP 3.6 <=10.0 mg/L [facility] Blood 07/28/2021 5:07 PM LOG MANAGER 07/28/2021 5:12 PM LOG MANAGER Shailesh Harper MD LAB BLOOD ORDERABLES Final R esult Performing Organization Address [facility] de Phone Number [facility] [address] [facility] [place] [address] * Erythrocyte sedimentation rate (07/28/2021 5:07 PM LOG MANAGER) Pathologist [facility] Erythrocyte sedimentation rate 18 1 - 20 mm/hr [facility] Blood 07/28/2021 5:07 PM LOG MANAGER 07/28/2021 5:12 PM LOG MANAGER Shailesh Harper MD LAB BLOOD ORDERABLES Final R esult Performing Organization Address [facility] de Phone Number [facility] [address] [place] [address] * eGFR (07/28/2021 5:07 PM LOG MANAGER) eGFR 105 mL/min/1. 73 m2 [facility] Comment: Interpretive Data Reference Interval [...] interpretive data was last reviewed 2021. Blood 07/28/2021 5:07 PM LOG MANAGER 07/28/2021 5:12 PM LOG MANAGER us Sal Arguello MD LAB BLOOD ORDERABLES Final Result [facility] [address] Department [place] [address] * (ABNORMAL) Differential, auto (07/28/2021 5:07 PM LOG MANAGER) Neutrophil abs 11.3(H) 1.7 - 6.5 K/cumm [facility] Imm gran abs 0.1 0.0 - 0.1 K/cumm [facility] Lymphocyte abs 2.6 0.8 - 3.3 K/cumm [facility] Monocyte abs 1.3(H) 0.2 - 0.8 K/cumm [facility] Eosinophil abs 0.1 0.0 - 0.5 K/cumm [facility] Basophil abs 0.1 0.0 - 0.1 K/cumm [facility] Neutrophil pct 73.0 % [facility] Comment: Interpretive Data Percent cell count reference ranges are not reported, since discordance with absolute values may lead to misinterpretation of CBC data. Current Interpretive Data was last revised on 2017. Imm gran pct 0.5 % [facility] Comment: Interpretive Data Percent cell count reference ranges are not reported, since discordance with absolute values may lead to misinterpretation of CBC data. Current Interpretive Data was last revised on 2017. Lymphocyte pct 17.1 % [facility] Comment: Interpretive Data Percent cell count reference ranges are not reported, since discordance with absolute values may lead to misinterpretation of CBC data. Current Interpretive Data was last revised on 2017. Monocyte pct 8.6 % [facility] Comment: Interpretive Data Percent cell count reference ranges are not reported, since discordance with absolute values may lead to misinterpretation of CBC data. Current Interpretive Data was last revised on 2017. Eosinophil pct 0.5 % [facility] Comment: Interpretive Data Percent cell count reference ranges are not reported, since discordance with absolute values may lead to misinterpretation of CBC data. Current Interpretive Data was last revised on 2017. Basophil pct 0.3 % [facility] Comment: Interpretive Data Percent cell count reference ranges are not reported, since discordance with absolute values may lead to misinterpretation of CBC data. Current Interpretive Data was last revised on 2017. Blood 07/28/2021 5:07 PM LOG MANAGER 07/28/2021 5:12 PM LOG MANAGER us Sal Arguello MD LAB BLOOD ORDERABLES Final Result [facility] [address] Department [place] [address] * (ABNORMAL) Comprehensive metabolic panel (07/28/2021 5:07 PM LOG MANAGER) Sodium 132(L) 135 - 145 mmol/L [facility] Potassium, pl 3.9 3.3 - 4.9 mmol/L [facility] Chloride 102 97 - 110 mmol/L [facility] CO2 18(L) 22 - 32 mmol/L [facility] Anion gap 12 2 - 15 mmol/L [facility] BUN 14 8 - 25 mg/dL [facility] Creatinine 0.70(L) 0.80 - 1.30 mg/dL [facility] Glucose 207(H) 70 - 199 mg/dL [facility] Comment: Interpretive Data Fasting glucose [...] interpretive data was last revised 2017. Calcium 9.3 8.5 - 10.3 mg/dL [facility] Bilirubin, total 0.3 0.1 - 1.2 mg/dL [facility] Protein, pl 7.6 6.5 - 8.5 g/dL [facility] Albumin 4.5 3.5 - 5.0 g/dL [facility] Alk phos 95 40 - 130 Units/L [facility] ALT 17 7 - 55 Units/L [facility] AST 26 10 - 50 Units/L [facility] Blood 07/28/2021 5:07 PM LOG MANAGER 07/28/2021 5:12 PM LOG MANAGER us Sal Arguello MD LAB BLOOD ORDERABLES Final Result [facility] [address] Department [place] [address] * (ABNORMAL) CBC with auto differential (07/28/2021 5:07 PM LOG MANAGER) WBC 15.4(H) 3.8 - 9.9 K/cumm [facility] Hgb 13.2 13.0 - 17.5 g/dL [facility] Hct 39.3 38.9 - 50.3 % [facility] Plt 394 150 - 400 K/cumm [facility] MPV 11.1 9.1 - 12.3 fL [facility] RBC 4.26(L) 4.30 - 5.80 M/cumm [facility] MCV 92.3 81.3 - 96.4 fL [facility] MCH 31.0 27.1 - 33.3 pg [facility] MCHC 33.6 32.3 - 35.7 g/dL [facility] RDW CV 14.6 11.1 - 14.9 % [facility] RDW SD 49.3(H) 35.7 - 48.1 fL [facility] NRBC abs 0.00 0.00 - 0.01 K/cumm [facility] Blood 07/28/2021 5:07 PM LOG MANAGER 07/28/2021 5:12 PM LOG MANAGER Sal Arguello MD LAB BLOOD ORDERABLES Final Result [facility] [address] Department [place] [address] documented in this encounter Visit Diagnoses Diagnosis CVA, old, disturbances of vision- Primary Cerebrovascular accident (CVA), unspecified mechanism (HCC) Blurry vision Other specified visual disturbances 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 (HCC) documented in this encounter Admitting Diagnoses Diagnosis CVA, old, disturbances of vision Blurry vision Other specified visual disturbances 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 (HCC) Cerebrovascular accident (CVA) (HCC) documented in this encounter Administered Medications Inactive Administered Medications - up to 3 most recent administrations Medication Order MAR Action Action Date Dose Rate Site acetaminophen (TYLENOL) tablet 1,000 mg 1,000 mg, oral, Once, On Tue07/28/21 at 1657, For 1 dose Given 07/28/2021 5:02 PM LOG MANAGER 1,000 mg acetaminophen (TYLENOL) tablet 1,000 mg 1,000 mg, oral, Once, On Tue07/28/21 at 1937, For 1 dose Given 07/28/2021 8:08 PM LOG MANAGER 1,000 mg acetaminophen (TYLENOL) tablet 650 mg 650 mg, oral, Every 4 hours PRN, 1st line for pain, fever, fever greater than 38.3 C, Starting on Tue07/29/21 at 0433, Indications: Fever, PainIndications:Fever,Pain Given 07/30/2021 5:03 PM LOG MANAGER 650 mg Given 07/30/2021 12:09 PM LOG MANAGER 650 mg Given 07/30/2021 6:41 AM LOG MANAGER 650 mg aspirin enteric coated tablet 81 mg 81 mg, oral, Daily, First dose on Tue07/29/21 at 0434, Do not crush, chew, cut, dissolve, open or otherwise manipulate tablet/capsule., Indications: cerebral ischemiaIndications:cerebral ischemia Given 07/30/2021 8:05 AM LOG MANAGER 81 mg Given 07/29/2021 4:41 AM LOG MANAGER 81 mg atorvastatin (LIPITOR) tablet 40 mg 40 mg, oral, Daily, First dose on Tue07/29/21 at 0900 Given 07/30/2021 8:05 AM LOG MANAGER 40 mg Given 07/29/2021 8:15 AM LOG MANAGER 40 mg carvediloL (COREG) tablet 3.125 mg 3.125 mg, oral, 2 times daily with meals (bkfst, dinner), First dose on Tue07/29/21 at 0800 Given 07/30/2021 5:46 PM LOG MANAGER 3.125 mg Given 07/30/2021 8:05 AM LOG MANAGER 3.125 mg Given 07/29/2021 4:57 PM LOG MANAGER 3.125 mg clopidogreL (PLAVIX) tablet 75 mg 75 mg, oral, Daily, First dose on Tue07/29/21 at 0900 Given 07/30/2021 8:05 AM LOG MANAGER 75 mg Given 07/29/2021 8:15 AM LOG MANAGER 75 mg dextrose (D10W) 10% bolus 250 mL 250 mL, intravenous, at 1,000 mL/hr, Administer over 15 Minutes, Every 15 min PRN, blood glucose less than 70 mg/dL and UNABLE to swallow/take PO glucose/juice., Starting on Tue07/29/21 at 0516, After treatment for hypoglycemia, recheck BG followed by treatment every 15 minutes until the BG is greater than 100 mg/dL. Then check BG 1 hour post treatment. If BG is less than 100 mg/dL, repeat Q15 minute BG checks and treatment. Call MD for each episode of hypoglycemia., Indications: hypoglycemic disorderIndications:hypoglyce dilma disorder dextrose (GLUTOSE) 40 % gel 15 g 15 g, oral, Every 15 min PRN, low blood sugar, blood glucose less than 70 mg/dL, Starting on Tue07/29/21 at 0516, If patient is alert and able to [...] Call MD for each episode of hypoglycemia. CLINICAL LABORATORY ASSISTANT STATES GLUTOSE-15 CONTAINS GLUCOSE 40% W/W (50% W/V), Indications: hypoglycemic disorderIndications:hypoglyce dilma disorder insulin glargine (LANTUS, SEMGLEE) 100 unit/mL injection 22 Units 22 Units (rounded from 21.55 Units = 0.25 Units/kg ? 86.2 kg), subcutaneous, Nightly, First dose on Tue07/29/21 at 2100, Do not hold if NPO. Do not mix with other insulins, Indications: Diabetes MellitusIndications:Diabetes Mellitus Given 07/29/2021 8:42 PM LOG MANAGER 22 Units Left Lower Abdomen insulin lispro (HumaLOG, ADMELOG) 100 unit/mL injection 7 Units 7 Units (rounded from 7.1546 Units = 0.083 Units/kg ? 86.2 kg), subcutaneous, 3 times daily with meals, First dose on Tue07/29/21 at 0800, If BG greater than or equal to 100 mg/dL, give dose with meals when tray arrives in the room. If BG less than 100 mg/dL or history of poor intake, give after meals. If patient eating less than 50% of meal, call MD for holding or reducing meal insulin dose. Hold prandial insulin if NPO, unable to eat, or if BG less than 70 mg/dL., Indications: Diabetes MellitusIndications:Diabetes Mellitus Given 07/30/2021 1:15 PM LOG MANAGER 7 Units Left Lower Abdomen Given 07/30/2021 8:42 AM LOG MANAGER 7 Units Le ft Lower Abdomen Given 07/29/2021 12:29 PM LOG MANAGER 7 Units R ight Upper Arm LORazepam (ATIVAN) injection 0.5 mg 0.5 mg, intravenous, Once, On Tue07/29/21 at 1815, For 1 dose, Before MRI For IV administration, dilute with equal volume of 0.9% sodium chloride to a final concentration of 1 mg/mL. Do not exceed a rate of 2 mg/minute Given 07/29/2021 10:38 PM LOG MANAGER 0.5 mg ondansetron (ZOFRAN) injection 4 mg 4 mg, intravenous, Administer over 2 Minutes, Every 6 hours PRN, nausea, vomiting, if not tolerating PO, Starting on Tue07/29/21 at 0433, Indications: Nausea and VomitingIndications:Nausea and Vomiting Given 07/29/2021 6:02 PM LOG MANAGER 4 mg ondansetron ODT (ZOFRAN-ODT) disintegrating tablet 4 mg 4 mg, oral, Every 6 hours PRN, nausea, vomiting, Starting on Tue07/29/21 at 0433, Indications: Nausea and VomitingIndications:Nausea and Vomiting Given 07/29/2021 4:41 AM LOG MANAGER 4 mg oxyCODONE (ROXICODONE) tablet 2.5 mg 2.5 mg, oral, Every 6 hours PRN, breakthrough pain, Starting on Tue07/29/21 at 1211, Indications: PainIndications:Pain Given 07/30/2021 8:05 AM LOG MANAGER 2.5 mg Given 07/29/2021 8:41 PM LOG MANAGER 2.5 mg Given 07/29/2021 12:28 PM LOG MANAGER 2.[address] (PROTONIX) extended release tablet 40 mg 40 mg, oral, Daily, First dose on Tue07/29/21 at 0900, Do not crush, chew, cut, dissolve, open or otherwise manipulate tablet/capsule., Indications: Treatment of Non-Bleeding Gastric DisorderIndications:Treatment of Non-Bleeding Gastric Disorder Given 07/30/2021 8:05 AM LOG MANAGER 40 mg Given 07/29/2021 8:15 AM LOG MANAGER 40 mg polyethylene glycol (MIRALAX) packet 17 g 17 g, oral, Daily PRN, constipation, Starting on Tue07/29/21 at 0433, Indications: constipationIndications:constip ation ramelteon (ROZEREM) tablet 8 mg 8 mg, oral, Nightly PRN, sleep, Starting on Tue07/29/21 at 1843, Indications: Sleep-Onset InsomniaIndications:Sleep-Onset Insomnia sodium chloride 0.9% bolus 1,000 mL 1,000 mL, intravenous, at 1,000 mL/hr, Administer over 1 Hours, Once, On Tue07/28/21 at 2204, For 1 dose New Bag 07/28/2021 10:10 PM LOG MANAGER 1,000 mL 1000 mL/hr traMADoL (ULTRAM) tablet 50 mg 50 mg, oral, 4 times daily PRN, 2nd line for pain, headache, Starting on Tue07/29/21 at 1505 Given 07/29/2021 4:57 PM LOG MANAGER 50 mg documented in this encounter Discontinued Medications Medication Sig Discontinue Reason Start Date End Da te albuterol HFA (PROVENTIL HFA,VENTOLIN HFA,PROAIR HFA) 90 mcg/actuation inhaler Inhale 8 puffs every 6 (six) hours as needed for wheezing Error 06/03/2021 07/28/2021 blood glucose diagnostic strip Check blood glucose daily Error 06/18/2021 07/28/2021 dapagliflozin (FARXIGA) 10 mg tabletIndications:heart failure with reduced ejection fraction Take 1 tablet (10 mg total) by mouth daily Error 06/04/2021 07/28/2021 glimepiride (AMARYL) 2 mg tablet take 1 tablet (2MG) by oral route every day Error 04/13/2012 07/28/2021 guaiFENesin (ROBITUSSIN) syrup 100 mg/5 mL Take 10 mL (200 mg total) by mouth 4 (four) times a day as needed for cough Error 06/03/2021 07/28/2021 insulin glargine (LANTUS) 100 unit/mL cartridge inject by subcutaneous route as per insulin protocol Error 04/13/2012 07/28/2021 phenazopyridine (PYRIDIUM) 100 mg tablet Error 05/01/2021 022 midodrine (PROAMATINE) 5 mg tabletIndications:Sympto matic Orthostatic Hypotension Take 3 tablets (15 mg total) by mouth 3 (three) times a day Error 06/03/2021 07/28/2021 senna-docusate (PERICOLACE) 8.6-50 mg Take 2 tablets by mouth every 12 (twelve) hours Error 06/03/2021 07/28/2021 fenofibrate (TRIGLIDE) 160 mg tablet take 1 tablet (160MG) by oral route every day 04/13/2012 07/29/[address] (PROTONIX) 40 mg EC tablet take 1 tablet (40MG) by oral route every day Error 04/13/2012 07/29/2021 pravastatin (PRAVACHOL) 80 mg tablet take 1 tablet (80MG) by oral route every day 04/13/2012 07/29/2021 traMADoL (ULTRAM) 50 mg tablet Take 1 tablet (50 mg total) by mouth 4 (four) times a day as needed for pain for up to 10 doses 07/30/2021 07/30/2021 fenofibrate nanocrystallized (TRIGLIDE) 160 mg tablet Take 160 mg by mouth daily Stop Taking at Discharge 07/30/2021 pravastatin (PRAVACHOL) 80 mg tablet Take 80 mg by mouth nightly Stop Taking at Discharge 07/30/2021 documented as of this encounter Historical Medications * This list may reflect changes made after this encounter. pantoprazole DR (PROTONIX) 40 mg EC tablet Take 40 mg by mouth daily empagliflozin (JARDIANCE) 10 mg tabletIndications:typ e 2 diabetes mellitus Take 10 mg by mouth daily insulin glargine (LANTUS, SEMGLEE) 100 unit/mL vial for injection Inject 60 Units under the skin nightly albuterol HFA (PROVENTIL HFA,VENTOLIN HFA,PROAIR HFA) 90 mcg/actuation inhaler Inhale 2 puffs every 6 (six) hours as needed for wheezing or shortness of breath pravastatin (PRAVACHOL) 80 mg tablet Take 80 mg by mouth nightly 07/30/19 fenofibrate nanocrystallized (TRIGLIDE) 160 mg tablet Take 160 mg by mouth daily 07/30/19 added in this encounter Active and Recently Administered Medications Times are shown in LOG MANAGER. Scheduled Medication Order 07/28/2021 07/29/2021 07/30/2021 acetaminophen (TYLENOL) tablet 1,000 mg (COMPLETED) 1,000 mg, oral, Once, On Tue07/28/21 at 1657, For 1 dose 1702 (Given - Provider: Xiomy Hameed RN) acetaminophen (TYLENOL) tablet 1,000 mg (COMPLETED) 1,000 mg, oral, Once, On Tue07/28/21 at 1937, For 1 dose 2007 (Given - Provider: Richard Jones RN) aspirin enteric coated tablet 81 mg 81 mg, oral, Daily, First dose on Tue07/29/21 at 0434, Do not crush, chew, cut, dissolve, open or otherwise manipulate tablet/capsule., Indications: cerebral ischemia 440 (Given - Provider: Lazarus Morelos RN) 08 (Given - Provider: Destiny Wyman RN) atorvastatin (LIPITOR) tablet 40 mg 40 mg, oral, Daily, First dose on Tue07/29/21 at 0900 0815 (Given - Provider: Xavi Davila RN) 08 (Given - Provider: Destiny Wyman RN) carvediloL (COREG) tablet 3.125 mg 3.125 mg, oral, 2 times daily with meals (bkfst, dinner), First dose on Tue07/29/21 at 0800 0815 (Given - Provider: Xavi Davila RN)1657 (Given - Provider: Destiny Wyman RN) 08 (Given - Provider: Destiny Wyman RN)1746 (Given - Provider: Destiny Wyman RN) clopidogreL (PLAVIX) tablet 75 mg 75 mg, oral, Daily, First dose on Tue07/29/21 at 0900 0815 (Given - Provider: Xavi Davila RN) 804 (Given - Provider: Destiny Wyman RN) insulin glargine (LANTUS, SEMGLEE) 100 unit/mL injection 22 Units 22 Units (rounded from 21.55 Units = 0.25 Units/kg ? 86.2 kg), subcutaneous, Nightly, First dose on Tue07/29/21 at 2100, Do not hold if NPO. Do not mix with other insulins, Indications: Diabetes Mellitus 2041 (Given - Provider: Alex Gutierrez RN) insulin lispro (HumaLOG, ADMELOG) 100 unit/mL injection 0-10 Units 0-10 Units, subcutaneous, 3 times daily with meals, First dose on Tue07/29/21 at 0800, Blood glucose mg/dL: 149 or less: No insulin 150-199: add 2 unit 200-249: add 4 units 250-299: add 6 units 300-349: add 8 units and notify physician for adjustment of insulin orders. 350-399: add 10 units and notify physician for adjustment of insulin orders. Over 400: Notify physician for adjustment of insulin orders. Do NOT hold for NPO Status, Indications: Diabetes Mellitus 0817 (Not Given - Provider: Xavi Davila RN - Reason: Order parameters not met - Comment: bg = 110)1228 (Not Given - Provider: Xavi Davila RN - Reason: Order parameters not met - Comment: bg = 130)1656 (Not Given - Provider: Destiny Wyman RN - Reason: Order parameters not met) 0705 (Not Given - Provider: Destiny Wyman RN - Reason: Order parameters not met)1208 (Not Given - Provider: Destiny Wyman RN - Reason: Order parameters not met)1703 (Not Given - Provider: Destiny Wyman RN - Reason: Order parameters not met) insulin lispro (HumaLOG, ADMELOG) 100 unit/mL injection 0-5 Units 0-5 Units, subcutaneous, Nightly, First dose on Tue07/29/21 at 2100, Blood glucose mg/dL: 149 or less: No insulin 150-199: add 1 unit 200-249: add 2 units 250-299: add 3 units 300-349: add 4 units and notify physician for adjustment of insulin orders. 350-399: add 5 units and notify physician for adjustment of insulin orders. Over 400: Notify physician for adjustment of insulin orders. Do NOT hold for NPO Status, Indications: Diabetes Mellitus 2045 (Not Given - Provider: Alex Gutierrez RN - Reason: Order parameters not met - Comment: bg 113) insulin lispro (HumaLOG, ADMELOG) 100 unit/mL injection 7 Units 7 Units (rounded from 7.1546 Units = 0.083 Units/kg ? 86.2 kg), subcutaneous, 3 times daily with meals, First dose on Tue07/29/21 at 0800, If BG greater than or equal to 100 mg/dL, give dose with meals when tray arrives in the room. If BG less than 100 mg/dL or history of poor intake, give after meals. If patient eating less than 50% of meal, call MD for holding or reducing meal insulin dose. Hold prandial insulin if NPO, unable to eat, or if BG less than 70 mg/dL., Indications: Diabetes Mellitus 0818 (Given - Provider: Xavi Davila RN)1229 (Given - Provider: Xavi Davila RN)1805 (Not Given - Provider: Destiny Wyman RN - Reason: Order parameters not met) 0842 (Given - Provider: Destiny Wyman RN)1315 (Given - Provider: Destiny Wyman RN) LORazepam (ATIVAN) injection 0.5 mg (COMPLETED) 0.5 mg, intravenous, Once, On Tue07/29/21 at 1815, For 1 dose, Before MRI For IV administration, dilute with equal volume of 0.9% sodium chloride to a final concentration of 1 mg/mL. Do not exceed a rate of 2 mg/minute 2238 (Given - Provider: Alex Gutierrez RN) pantoprazole DR (PROTONIX) extended release tablet 40 mg 40 mg, oral, Daily, First dose on Tue07/29/21 at 0900, Do not crush, chew, cut, dissolve, open or otherwise manipulate tablet/capsule., Indications: Treatment of Non-Bleeding Gastric Disorder 0815 (Given - Provider: Xavi Davila RN) 0805 (Given - Provider: Destiny Wyman RN) sodium chloride 0.9% bolus 1,000 mL (COMPLETED) 1,000 mL, intravenous, at 1,000 mL/hr, Administer over 1 Hours, Once, On Tue07/28/21 at 2204, For 1 dose 2210 (New Bag - Provider: Richard Jones RN) 0428 (Stopped - Provider: Lazarus Morelos RN) PRN Medication Order 07/28/2021 07/29/2021 07/30/2021 acetaminophen (TYLENOL) tablet 650 mg 650 mg, oral, Every 4 hours PRN, 1st line for pain, fever, fever greater than 38.3 C, Starting on Tue07/29/21 at 0433, Indications: Fever, Pain 0441 (Given - Provider: Lazarus Morelos RN)0837 (Given - Provider: Xavi Davila RN)1441 (Given - Provider: Destiny Wyman RN)2253 (Given - Provider: Alex Gutierrez RN) 0631 (Given - Provider: Alex Gutierrez RN)1209 (Given - Provider: Destiny Wyman, RN)1703 (Given - Provider: Destiny Wyman RN) dextrose (D10W) 10% bolus 250 mL(Linked Group 1) 250 mL, intravenous, at 1,000 mL/hr, Administer over 15 Minutes, Every 15 min PRN, blood glucose less than 70 mg/dL and UNABLE to swallow/take PO glucose/juice., Starting on Tue07/29/21 at 0516, After treatment for hypoglycemia, recheck BG followed by treatment every 15 minutes until the BG is greater than 100 mg/dL. Then check BG 1 hour post treatment. If BG is less than 100 mg/dL, repeat Q15 minute BG checks and treatment. Call MD for each episode of hypoglycemia., Indications: hypoglycemic disorder dextrose (GLUTOSE) 40 % gel 15 g(Linked Group 1) 15 g, oral, Every 15 min PRN, low blood sugar, blood glucose less than 70 mg/dL, Starting on Tue07/29/21 at 0516, If patient is alert and able to [...] Call MD for each episode of hypoglycemia. CLINICAL LABORATORY ASSISTANT STATES GLUTOSE-15 CONTAINS GLUCOSE 40% W/W (50% W/V), Indications: hypoglycemic disorder glucagon injection 1 mg 1 mg, intramuscular, Every 30 min PRN, low blood sugar, blood glucose less than 70 mg/dL AND no IV access AND unable to take PO glucose/juice., Starting on Tue07/29/21 at 0516, After Glucagon is administered, position patient on [...] 1 mL SWFI. Use immediately following reconstitution. ondansetron (ZOFRAN) injection 4 mg(Linked Group 2) 4 mg, intravenous, Administer over 2 Minutes, Every 6 hours PRN, nausea, vomiting, if not tolerating PO, Starting on Tue07/29/21 at 0433, Indications: Nausea and Vomiting 0441 (See Alternative - Provider: Lazarus Morelos RN)1802 (Given - Provider: Destiny Wyman, DEEPIKA) ondansetron ODT (ZOFRAN-ODT) disintegrating tablet 4 mg(Linked Group 2) 4 mg, oral, Every 6 hours PRN, nausea, vomiting, Starting on Tue07/29/21 at 0433, Indications: Nausea and Vomiting 0441 (Given - Provider: Lazarus Morelos RN)1802 (See Alternative - Provider: Destiny Wyman RN) oxyCODONE (ROXICODONE) tablet 2.5 mg 2.5 mg, oral, Every 6 hours PRN, breakthrough pain, Starting on Tue07/29/21 at 1211, Indications: Pain 1228 (Given - Provider: Xavi Davila RN)2041 (Given - Provider: Alex Gutierrez RN) 0805 (Given - Provider: Destiny Wyman, DEEPIKA) polyethylene glycol (MIRALAX) packet 17 g 17 g, oral, Daily PRN, constipation, Starting on Tue07/29/21 at 0433, Indications: constipation ramelteon (ROZEREM) tablet 8 mg 8 mg, oral, Nightly PRN, sleep, Starting on Tue07/29/21 at 1843, Indications: Sleep-Onset Insomnia traMADoL (ULTRAM) tablet 50 mg 50 mg, oral, 4 times daily PRN, 2nd line for pain, headache, Starting on Tue07/29/21 at 1505 1657 (Given - Provider: Destiny Wyman, DEEPIKA) Linked Groups Order Group 1: dextrose (GLUTOSE) 40 % gel 15 gJump to med 15 g, oral, Every 15 min PRN, low blood sugar, blood glucose less than 70 mg/dL, Starting on Tue07/29/21 at 0516, If patient is alert and able to [...] Call MD for each episode of hypoglycemia. CLINICAL LABORATORY ASSISTANT STATES GLUTOSE-15 CONTAINS GLUCOSE 40% W/W (50% W/V), Indications: hypoglycemic disorder Or dextrose (D10W) 10% bolus 250 mLJump to med 250 mL, intravenous, at 1,000 mL/hr, Administer over 15 Minutes, Every 15 min PRN, blood glucose less than 70 mg/dL and UNABLE to swallow/take PO glucose/juice., Starting on Tue07/29/21 at 0516, After treatment for hypoglycemia, recheck BG followed by treatment every 15 minutes until the BG is greater than 100 mg/dL. Then check BG 1 hour post treatment. If BG is less than 100 mg/dL, repeat Q15 minute BG checks and treatment. Call MD for each episode of hypoglycemia., Indications: hypoglycemic disorder Group 2: ondansetron ODT (ZOFRAN-ODT) disintegrating tablet 4 mgJump to med 4 mg, oral, Every 6 hours PRN, nausea, vomiting, Starting on Tue07/29/21 at 0433, Indications: Nausea and Vomiting Or ondansetron (ZOFRAN) injection 4 mgJump to med 4 mg, intravenous, Administer over 2 Minutes, Every 6 hours PRN, nausea, vomiting, if not tolerating PO, Starting on Tue07/29/21 at 0433, Indications: Nausea and Vomiting documented in this encounter Orders Medications Ordered That Hunter ht Not Have Been Administered Count Last Ordered Date First Ordered Date dextrose (D10W) 10% bolus 250 mL 07/29/19 dextrose (GLUTOSE) 40 % gel 15 g 07/29/19 glucagon injection 1 mg 07/29/2021 insulin lispro (HumaLOG, ADM ELOG) 100 unit/mL injection 0-10 Units 07/29/2021 insulin lispro (HumaLOG, ADM ELOG) 100 unit/mL injection 0-5 Units 1 07/29/2021 polyethylene glycol (MIRALAX) packet 17 g 07/29/2021 ramelteon (ROZEREM) tablet 8 mg 2 Lab Orders Without Results Count Last Ordered D ate First Ordered Date POCT GLUCOSE DEVICE 7 07/30/2021 07/29/19 Diet Count Last Ordered Date First Orde red Date ADULT DISCHARGE DIET 1 07/30/2021 Nursing Count Last Ordered Date First Orde red Date DISCHARGE ACTIVITY 2 07/30/2021 FOLLOW UP WITH ESTABLISHED PROVIDER 3 07/30 ACTIVITY 1 07/29/2021 NOTIFY PROVIDER (SPECIFY) 1 07/29/2021 NURSING SWALLOW ASSESSMENT 1 07/29/2021 TELEMETRY MONITORING 1 07/29/2021 NIH STROKE SCALE 1 07/28/2021 Consult Count Last Ordered Date First Orde red Date IP CONSULT TO NEUROLOGY 1 07/29/2021 IP CONSULT TO NUTRITION SERVICES 1 07/29/19 Admission Count Last Ordered Date First Orde red Date INITIATE OBSERVATION SERVICES 2 08/04/2021 07/29/2021 ADMIT TO INPATIENT 2 07/30/2021 Discharge Count Last Ordered Date First Orde red Date DISCHARGE PATIENT 1 07/30/2021 CORE MEASURES Count Last Ordered Date First Ord ered Date REASON FOR NO VTE PROPHYLAXIS AT ADMISSION 1 07/29/2021 REASON FOR NOT INITIATING IV THROMBOLYTIC 1 07/29/2021 documented in this encounter Additional Health Concerns Infection Onset Date Last Indicated Resolved Time COVID: Recovered Comment:Added based on recent COVID infection. 06/17/2021 06/18/2021 10/15/2021 3:05 AM C DT documented as of this encounter Care Teams Tail Edger Relationship Specialty Start Date End Date Unknown, Notinfile PCP - General 05/01/21 [place] [address] [place] [address] Surgeon Cardiothoracic Surgery 05/01/21 [place] [address] [address] [place] [address] Referring Physician Cardiovascular Disease 06/03/21 Miscellaneous, Not In File 07/30/21 Juliane Landis MD [address] [address] Consulting Physician Neurology 07/30/21 documented as of this encounter
--- OUTSIDE RECORDS SUMMARY | 2024-06-21 19:50 | XMS_ITS | Encounter Summary ---
Author Organization [facility] Address [address] [place] [address] Phone Care Team Providers Care Furniture Sprayer Name Role Phone Unknown, Notinfile Primary Care Provider Unavail able Salbador Granados MD Unavailable [phone] Rubin Clayton MD Unavailable Miscellaneous, Not In File Unavailable Unava ilable Humphrey Manriquez MD Unavailable [phone] Reason for Referral * Consultation (Routine) - Closed Specialty Diagnoses / Procedures Referred By Contjuarez t Referred To Contact Cardiothoracic Surgery Diagnoses ST elevation myocardial infarction involving left circumflex coronary artery (H[place]) [place] [address] [facility] [address] [place] [address] Phone: tel: fax: [facility] (All Locations) Referral ID Status Reason Start Date Expiration Date V isits Requested Visits Authorized [id number] Closed Specialty Services Required 09/15/2021 09/15/2022 12 12 Question Answer Please select the performing region: [facility] (All Locations) [[id number]] # of visits: 1 Reason for Visit * Consultation (Routine) - Closed Specialty Diagnoses / Procedures Referred By Contac t Referred To Contact Cardiothoracic Surgery Diagnoses ST elevation myocardial infarction involving left circumflex coronary artery (HCC) [place] [address] [facility] [address] [place] [address] Phone: tel: fax: [facility] (All Locations) Referral ID Status Reason Start Date Expiration Date V isits Requested Visits Authorized [id number] Closed Specialty Services Required 09/15/2021 09/15/2022 12 12 Encounter Details Date Type Department Care Team (Late st Contact Info) Description 09/15/2021 11:45 AM CDT Office Visit [facility] Surgery [address] [place] [address] [address] [place] [address] Eleonora Duarte NP [address] [facility] [id number] [place] [address] ST elevation myocardial infarction involving left circumflex coronary artery (HCC) (Primary Dx) Social History Tobacco Use Types Packs/Day Years Used Date Smoking Tobacco: Former Cigarettes 1 40 Smokeless Tobacco: Never Comments:Stop smoking after [place] Alcohol Use Standard Drinks/Week Comments [...] on file Legal Sex Male 11:30 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 Gender Identity Not on file Sexual Orientation Not on file documented as of this encounter Last Filed Vital Signs Vital Sign Reading Time Taken Comments Blood Pressure 129/84 09/15/2021 12:18 PM CDT Pulse 80 09/15/2021 12:18 PM CDT Temperature - - Respiratory Rate 14 09/15/2021 12:18 PM CDT Oxygen Saturation 97% 09/15/2021 12:18 PM CDT Inhaled Oxygen Concentration - - Weight 84.8 kg (187 lb) 09/15/2021 12:18 PM CDT Height 167.6 cm (5' 6 ) 09/15/2021 12:18 PM CDT Body Mass Index 30.18 09/15/2021 12:18 PM CDT documented in this encounter Progress Notes * Eleonora Duarte, CRIMINOLOGY TEACHER - 09/15/2021 11:45 AM CDT Cardiothoracic Surgery Office Visit Baldev Qiu 1960 -Reason for Visit: Post-op visit -Date of Surgical Procedure: 05/04/2021 -Surgical Procedure: ??Coronary artery bypass grafting x4, placement of left QUINN to the LAD,??saphenous vein graft to the??diagonal artery and obtuse marginal??in a sequential fashion,??saphenous vein graft to the PDA Doctors: Malik Watson-- PCP Roshan Interval History: Patient here for his final postop visit status post CABG that was done in April of last year. Unfortunately patient had a mild stroke that affected his peripheral vision on the left side couple months ago at [facility]. Unsure of cause. Patient has been seeing Neurology.Patient is well healed from CABG in all of his incisions are healed. He denies sternal discomfort. Of note patient is how he was prior to surgery, inattentive, impulsive and conversations do not makea lot of sense-patient ambulate with cane to room without difficulty. We discussed that he has no restrictions per the sternum at this time. They are aware to follow up with all the consultants. HOME MEDICATIONS : albuterol HFA (PROVENTIL HFA,VENTOLIN HFA,PROAIR HFA) 90 mcg/actuation inhaler aspirin 81 mg enteric coated tablet atorvastatin (LIPITOR) 40 mg tablet carvediloL (COREG) 3.125 mg tablet empagliflozin (JARDIANCE) 10 mg tablet insulin glargine (LANTUS, SEMGLEE) 100 unit/mL vial for injection levETIRAcetam (KEPPRA) 1,[address] (PROTONIX) 40 mg EC tablet Allergies Allergen Reactions ? ? Metformin Nausea & Vomiting ??? Metoclopramide Vital Signs: Vitals BP 129/84 Pulse 80 Resp 14 Ht 167.6 cm (5' 6 ) Wt 84.8 kg (187 lb) SpO2 97% BMI 30.18 kg/m?? Physical Exam Constitutional: General: He is not in acute distress. Appearance: Normal appearance. He is not ill-appearing, toxic-appearing or diaphoretic. HENT: Head: Normocephalic. Cardiovascular: Rate and Rhythm: Normal rate and regular rhythm. Heart sounds: No murmur heard. Pulmonary: Effort: Pulmonary effort is normal. Breath sounds: Normal breath sounds. Abdominal: Palpations: Abdomen is soft. Musculoskeletal: Right lower leg: No edema. Left lower leg: No edema. Skin: Comments: Sternum is stable to cough. Sternal incision is well approximated and healed. Neurological: General: No focal deficit present. Mental Status: He is alert and oriented to person, place, and time. Psychiatric: Attention and Perception: He is inattentive. Mood and Affect: Affect is labile. Speech: Speech is slurred. Thought Content: Thought content is paranoid. Judgment: Judgment is impulsive. Tests Ordered: None Treatment Plan: Patient has healed well status post CABG that was done last fall. Patient to continue to follow-up with Cardiology and primary care as well as Neurology. Patient to follow up with us p.r.n.. No medication changes today Eleonora Duarte NP 2:16 PM documented in this encounter Plan of Treatment Scheduled Referrals Name Type Priority Associated Diagnoses Order Schedule Ambulatory referral to Cardiothoracic Surgery Outpatient Referral Routine ST elevation myocardial infarction involving left circumflex coronary artery (HCC) Expected: 09/14/2021 (Approximate), Expires: 08/31/2022 documented as of this encounter Visit Diagnoses Diagnosis ST elevation myocardial infarction involving left circumflex coronary artery (HCC)- Primary documented in this encounter Additional Health Concerns Infection Onset Date Last Indicated Resolved Time COVID: Recovered Comment:Added based on recent COVID infection. 06/17/2021 06/18/2021 10/15/2021 3:05 AM C DT documented as of this encounter Care Teams Furniture Sprayer Relationship Specialty Start Date End Date Unknown, Notinfile PCP - General 05/01/21 [place] [address], [place] [address] Surgeon Cardiothoracic Surgery 05/01/21 [place] [address] [address] [facility] [address], [place] [address] Referring Physician Cardiovascular Disease 06/03/21 Miscellaneous, Not In File 07/30/21 Humphrey Manriquez MD [address] [address] Consulting Physician Neurology 07/30/21 documented as of this encounter
--- OUTSIDE RECORDS SUMMARY | 2024-06-21 19:50 | XMS_ITS | Encounter Summary ---
Author Organization [facility] Healthcare Address [address] [place] [address] Care Team Providers Care Food Service Specialist Name Role Phone Unknown, Notinfile Primary Care Provider Unavail able Salbador Granados MD Unavailable Rubin Clayton MD Unavailable Miscellaneous, Not In File Unavailable Unava ilable Humphrey Manriquez MD Unavailable [phone] Encounter Details Date Type Department Care Team (Late st Contact Info) Description 08/24/2021 Telephone [facility] [address] [place] [id number] Robby Arcehr III, RN Social History Tobacco Use Types Packs/Day Years Used Date Smoking Tobacco: Former Cigarettes 1 40 Smokeless Tobacco: Never Comments:Stop smoking after [place] Alcohol Use Standard Drinks/Week Comments No 0 [...] on file Legal Sex Male 11:30 PM AUTOMATED WEAVER Gender Identity Not on file Sexual Orientation Not on file documented as of this encounter Miscellaneous Notes * Telephone Encounter - Robby Archer III, RN - 08/24/2021 9:50 AM AUTOMATED WEAVER Stroke Follow Up Spoke with: Answering machines x2 different numbers;left message to call back @[phone]. MATED WEAVER documented in this encounter Plan of Treatment Not on file documented as of this encounter Visit Diagnoses Not on filedocumented in this encounter Additional Health Concerns Infection Onset Date Last Indicated Resolved Time COVID: Recovered Comment:Added based on recent COVID infection. 06/17/2021 06/18/2021 10/15/2021 3:05 AM C DT documented as of this encounter Care Teams Food Service Specialist Relationship Specialty Start Date End Date Unknown, Notinfile PCP - General 05/01/21 [place] [address] [address] [address] Surgeon Cardiothoracic Surgery 05/01/21 [place] [address] [address] [address] Referring Physician Cardiovascular Disease 06/03/21 Miscellaneous, Not In File 07/30/21 Humphrey Manriquez MD [address] [address] Consulting Physician Neurology 07/30/21 documented as of this encounter
--- OUTSIDE RECORDS SUMMARY | 2024-06-21 19:50 | XMS_ITS | Encounter Summary ---
Author Organization [facility] Address [address] [place] [address] Phone Care Team Providers Care Edge Bander Hand Name Role Phone Unknown, Notinfile Primary Care Provider Unavail able Salbador Granados MD Unavailable Rubin Clayton MD Unavailable Encounter Details Date Type Department Care Team (Late st Contact Info) Description 06/18/2021 Orders Only [facility] Surgery [address] [place] [address] Varsha Crowder, EFREN [address] [facility] [address] [facility] [address] [place] [address] Social History Tobacco Use Types Packs/Day Years [...] on file 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 06/17/2021 06/18/2021 10/15/2021 3:05 AM C DT documented as of this encounter Care Teams Edge Bander Hand Relationship Specialty Start Date End Date Unknown, Notinfile PCP - General 05/01/21 [place] [address] [address] [address] Surgeon Cardiothoracic Surgery 05/01/21 [place] [address] [address] [address] Referring Physician Cardiovascular Disease 06/03/21 documented as of this encounter
--- OUTSIDE RECORDS SUMMARY | 2024-06-21 19:51 | XMS_ITS | Encounter Summary ---
Author Organization [facility] Healthcare Address [address] [place] [address] Care Team Providers Care Health Workers Name Role Phone Unknown, Notinfile Primary Care Provider Unavail able Salbador Granados MD Unavailable [phone] Encounter Details Date Type Department Care Team (Latest Contact Info) Description 06/01/2021 7:45 AM STYLIST ASSISTANT - 06/01/2021 11:59 PM STYLIST ASSISTANT Hospital Encounter [facility] [address] [place] [address] Discharge Disposition: Discharge to home or self [...] on file Legal Sex Male 11:30 PM STYLIST ASSISTANT Gender Identity Not on file Sexual Orientation Not on file documented as of this encounter Medications at Time of Discharge aspirin 81 mg enteric coated tablet Take 1 tablet (81 mg total) by mouth daily 30 tablet 11 06/04/2021 carvediloL (COREG) 3.125 mg tablet Take 1 tablet (3.125 mg total) by mouth 2 (two) times a day with meals 60 tablet 3 06/03/2021 cefdinir (OMNICEF) 300 mg capsule Take 1 capsule (300 mg total) by mouth 2 (two) times a day for 3 days 6 capsule 06/03/2021 1 sodium bicarbonate 650 mg tablet Take 2 tablets (1,300 mg total) by mouth 2 (two) times a day 120 tablet 06/03/2021 2 albuterol HFA (PROVENTIL HFA,VENTOLIN HFA,PROAIR HFA) 90 mcg/actuation inhaler Inhale 8 puffs every 6 (six) hours as needed for wheezing 1 each 06/03/2021 2 aspirin 325 mg tablet take 1 Tablet (325MG) by oral route every day 0 04/13/2012 1 carvediloL (COREG) 12.5 mg tablet 03/13/2021 1 cefdinir (OMNICEF) 300 mg capsule 05/01/2021 1 clopidogreL (PLAVIX) 75 mg tablet Take 1 tablet (75 mg total) by mouth daily 30 tablet 3 06/04/2021 2 dapagliflozin (FARXIGA) 10 mg tabletIndications :heart failure with reduced ejection fraction Take 1 tablet (10 mg total) by mouth daily 30 tablet 3 06/04/2021 2 fenofibrate (TRIGLIDE) 160 mg tablet take 1 tablet (160MG) by oral route every day 0 04/13/2012 2 glimepiride (AMARYL) 2 mg tablet take 1 tablet (2MG) by oral route every day 0 04/13/2012 2 guaiFENesin (ROBITUSSIN) syrup 100 mg/5 mL Take 10 mL (200 mg total) by mouth 4 (four) times a day as needed for cough 120 mL 06/03/2021 2 insulin glargine (LANTUS) 100 unit/mL cartridge inject by subcutaneous route as per insulin protocol 0 04/13/2012 2 lisinopril (PRINIVIL,ZESTRIL ) 10 mg tablet take 1 Tablet (10MG) by oral route every day 0 04/13/2012 1 midodrine (PROAMATINE) 5 mg tabletIndications :Symptomatic Orthostatic Hypotension Take 3 tablets (15 mg total) by mouth 3 (three) times a day 270 tablet 06/03/[address] (PROTONIX) 40 mg EC tablet take 1 tablet (40MG) by oral route every day 0 04/13/2012 2 phenazopyridine (PYRIDIUM) 100 mg tablet 05/01/2021 2 prasugrel (EFFIENT) tablet take 1 tablet (10MG) by oral route every day 30 6 04/13/2012 1 pravastatin (PRAVACHOL) 80 mg tablet take 1 tablet (80MG) by oral route every day 0 04/13/2012 2 senna-docusate (PERICOLACE) 8.6-50 mg Take 2 tablets by mouth every 12 (twelve) hours 30 tablet 06/03/2021 2 documented as of this encounter Discharge Disposition Disposition Code Departure Means Destination Discharge to home or self care documented in this encounter Plan of Treatment Not on file documented as of this encounter Procedures Procedure Name Priority Date/Time Associated Diagnosis Comments US VEIN DUPLEX LOWER EXTREMITY BILATERAL COMPLETE IP Routine 06/01/2021 9:20 AM STYLIST ASSISTANT documented in this encounter Results * US Vein Duplex Lower Extremity Bilateral Complete (06/01/2021 9:20 AM STYLIST ASSISTANT) Anatomical Region Laterality Modality Vascular Bilateral Ultrasound 06/01/2021 9:55 AM STYLIST ASSISTANT Impressions 06/01/2021 9:55 AM STYLIST ASSISTANT No evidence of deep vein thrombosis in bilateral lower extremities. Electronically signed by: Todd Hicks 06/01/2021 9:55 AM STYLIST ASSISTANT EXAMINATION: BILATERAL LOWER EXTREMITY VENOUS DUPLEX EXAM DATE: 06/01/2021 7:45 AM HISTORY: Bilateral lower extremity swelling. ??Covid positive. TECHNIQUE: A limited ultrasound of the deep veins in both legs was performed using real-time imaging. FINDINGS: There is normal compressibility in the common femoral, deep femoral, femoral, popliteal, peroneal, posterior tibial and proximal great saphenous veins bilaterally. ??No evidence of thrombus. Procedure Note Humphrey Mojica MD - 06/01/2021 EXAMINATION: BILATERAL LOWER EXTREMITY VENOUS DUPLEX EXAM DATE: 06/01/2021 7:45 AM HISTORY: Bilateral lower extremity swelling. Covid positive. TECHNIQUE: A limited ultrasound of the deep veins in both legs was performed using real-time imaging. FINDINGS: There is normal compressibility in the common femoral, deep femoral, femoral, popliteal, peroneal, posterior tibial and proximal great saphenous veins bilaterally. No evidence of thrombus. IMPRESSION: No evidence of deep vein thrombosis in bilateral lower extremities. Electronically signed by: Humphrey Mojica M.D. us Silviano Huddleston EDUCATIONAL PROGRAM ASSISTANT IMG US PROCEDURES Final Re sult documented in this encounter Visit Diagnoses Not on filedocumented in this encounter Additional Health Concerns Infection Onset Date Last Indicated Resolved Time COVID19 05/19/2021 05/19/2021 06/17/2021 3:06 AM STYLIST ASSISTANT Rhino/Enterovirus 05/26/2021 05/26/2021 06/09/2021 3:05 AM STYLIST ASSISTANT documented as of this encounter Care Teams Health Workers Relationship Specialty Start Date End Date Unknown, Notinfile PCP - General 05/01/21 [place] [id number] [address] [address] Surgeon Cardiothoracic Surgery 05/01/21 documented as of this encounter
--- OUTSIDE RECORDS SUMMARY | 2024-06-21 19:51 | XMS_ITS | Encounter Summary ---
Author Organization [facility] Healthcare Address [address] [place] [address] Care Team Providers Care Grant Officer Name Role Phone Unknown, Notinfile Primary Care Provider Unavail able Salbador Granados MD Unavailable [phone] Encounter Details Date Type Department Care Team (Latest Contact Info) Description 05/31/2021 2:20 AM CHUTE WORKER - 05/31/2021 11:59 PM CHUTE WORKER Hospital Encounter [facility] Diagnostic Imaging [address] [place] [address] Discharge Disposition: Discharge to home [...] on file Legal Sex Male 11:30 PM CHUTE WORKER Gender Identity Not on file Sexual Orientation [...] carvediloL (COREG) 12.5 mg tablet 03/13/2021 1 carvedilol (COREG) 6.25 mg tablet TAKE 1 TABLET (6.25MG) BY ORAL ROUTE 2 TIMES EVERY DAY WITH FOOD 60 0 04/13/2012 1 cefdinir (OMNICEF) 300 mg capsule 05/01/2021 [...] Procedure Name Priority Date/Time Associated Diagnosis Comments XR CHEST 1 VIEW IP Routine 05/31/2021 6:39 AM CHUTE WORKER documented in this encounter Results * XR Chest 1 Vw Portable (05/31/2021 6:39 AM CHUTE WORKER) Anatomical Region Laterality Modality Body, Chest N/A Computed Radiogr aphy 05/31/2021 7:02 AM CHUTE WORKER Impressions 05/31/2021 7:02 AM CHUTE WORKER 1. ??No significant interval change from prior. 2. ??Multifocal bilateral airspace opacities most suggestive of Covid 19 pneumonia. 2. ??Stable mild cardiomegaly. Electronically signed by: Erma Russell II 05/31/2021 7:02 AM CHUTE WORKER EXAMINATION: XR CHEST 1 VIEW DATE: 05/31/2021 2:25 AM INDICATION: History of failure. COMPARISON: 05/28/2021. FINDINGS: Limited evaluation of the bilateral costophrenic angles. ??No pneumothorax. ??Right upper extremity PICC terminates in the superior cavoatrial junction, unchanged. ??Stable appearance of the cardiac mediastinal silhouette with poststernotomy changes and mild cardiomegaly. ??Relatively similar bilateral patchy airspace opacities most suggestive of multifocal Covid 19 pneumonia. ??No acute osseous abnormality. Procedure Note Richard Lopez II, - 05/31/2021 EXAMINATION: XR CHEST 1 VIEW DATE: 05/31/2021 2:25 AM INDICATION: History of failure. COMPARISON: 05/28/2021. FINDINGS: Limited evaluation of the bilateral costophrenic angles. No pneumothorax. Right upper extremity PICC terminates in the superior cavoatrial junction, unchanged. Stable appearance of the cardiac mediastinal silhouette with poststernotomy changes and mild cardiomegaly. Relatively similar bilateral patchy airspace opacities most suggestive of multifocal Covid 19 pneumonia. No acute osseous abnormality. IMPRESSION: 1. No significant interval change from prior. 2. Multifocal bilateral airspace opacities most suggestive of Covid 19 pneumonia. 2. Stable mild cardiomegaly. Electronically signed by: Richard Lopez II, D.O. Erika Mayer IT HELP DESK ANALYST IMG XR PROCEDURES Luz l Result documented in this encounter Visit Diagnoses Not on filedocumented in this encounter Additional Health Concerns Infection Onset Date Last Indicated Resolved Time COVID19 05/19/2021 05/19/2021 06/17/2021 3:06 AM CHUTE WORKER Rhino/Enterovirus 05/26/2021 05/26/2021 06/09/2021 3:05 AM CHUTE WORKER documented as of this encounter Care Teams Grant Officer Relationship Specialty Start Date End Date Unknown, Notinfile PCP - General 05/01/21 [place] [id number] [address] [facility] [address] [address] Surgeon Cardiothoracic Surgery 05/01/21 documented as of this encounter
--- OUTSIDE RECORDS SUMMARY | 2024-06-21 19:52 | XMS_ITS | Encounter Summary ---
Author Organization [facility] Healthcare Address [address] [place] [address] Care Team Providers Care Blunger Machine Operator Name Role Phone Unknown, Notinfile Primary Care Provider Unavail able Salbador Granados MD Unavailable [phone] Encounter Details Date Type Department Care Team (Latest Contact Info) Description 05/27/2021 4:40 AM OVERHEAD CRANE INSPECTOR - 05/27/2021 11:59 PM OVERHEAD CRANE INSPECTOR Hospital Encounter [facility] Diagnostic Imaging [address] [place] [address] Discharge Disposition: Discharge to home or self care Social History Tobacco Use Types Packs/Day Years Used Date Smoking Tobacco: Every Day Cigarettes 1 40 Comments:Smoking History Pac ks/day: 1 Packs Alcohol Use Standard Drinks/Week Comments No 0 (1 standard drink = 0.6 oz pur e alcohol) Sex and Gender Information Value Date Recorded Sex Assigned at Not on file Legal Sex Male 11:30 PM OVERHEAD CRANE INSPECTOR Gender Identity Not on file Sexual Orientation [...] Comments XR CHEST 1 VIEW IP Routine 05/27/2021 5:40 AM OVERHEAD CRANE INSPECTOR documented in this encounter Results * XR Chest 1 Vw Portable (05/27/2021 5:40 AM OVERHEAD CRANE INSPECTOR) Anatomical Region Laterality Modality Body, Chest N/A Computed Radiogr aphy 05/27/2021 8:09 AM OVERHEAD CRANE INSPECTOR Impressions 05/27/2021 8:09 AM OVERHEAD CRANE INSPECTOR Persistent bilateral infiltrates unchanged, worse on the left than the right. Electronically signed by: Deacon Cummings M.D. Narrative 05/27/2021 8:09 AM OVERHEAD CRANE INSPECTOR EXAMINATION: XR CHEST 1 VIEW DATE: 05/27/2021 4:45 AM HISTORY: 60-year-old man Covid pneumonia FINDINGS:Compared with the study of the prior day, extensive left lung infiltrate persists. Mild cardiomegaly with postsurgical changes. Ill-defined densities in the right lung unchanged. No definite failure Procedure Note Deacon Cummings MD - 05/27/2021 EXAMINATION: XR CHEST 1 VIEW DATE: 05/27/2021 4:45 AM HISTORY: 60-year-old man Covid pneumonia FINDINGS:Compared with the study of the prior day, extensive left lung infiltrate persists. Mild cardiomegaly with postsurgical changes. Ill-defined densities in the right lung unchanged. No definite failure IMPRESSION: Persistent bilateral infiltrates unchanged, worse on the left than the right. Electronically signed by: Deacon Cummings M.D. Salbador Granados MD IMG XR PROCEDURES Final Resu lt documented in this encounter Visit Diagnoses Not on filedocumented in this encounter Additional Health Concerns Infection Onset Date Last Indicated Resolved Time COVID19 05/19/2021 05/19/2021 06/17/2021 3:06 AM OVERHEAD CRANE INSPECTOR Rhino/Enterovirus 05/26/2021 05/26/2021 06/09/2021 3:05 AM OVERHEAD CRANE INSPECTOR documented as of this encounter Care Teams Blunger Machine Operator Relationship Specialty Start Date End Date Unknown, Notinfile PCP - General 05/01/21 [place] [address] [address] [facility] [address] [address] Surgeon Cardiothoracic Surgery 05/01/21 documented as of this encounter
--- OUTSIDE RECORDS SUMMARY | 2024-06-21 19:52 | XMS_ITS | Encounter Summary ---
Author Organization [facility] Healthcare Address [address] [place] [address] Care Team Providers Care Mechanics Supervisor Name Role Phone Unknown, Notinfile Primary Care Provider Unavail able Salbador Granados MD Unavailable [phone] Encounter Details Date Type Department Care Team (Latest Contact Info) Description 05/17/2021 9:21 PM DOOR PULLER - 05/17/2021 11:59 PM DOOR PULLER Hospital Encounter [facility] Diagnostic Imaging [address] [place] [address] Discharge Disposition: Discharge to home [...] on file Legal Sex Male 11:30 PM DOOR PULLER Gender Identity Not on file Sexual Orientation [...] Associated Diagnosis Comments XR CHEST 1 VIEW Critical/Life-Th reatening 05/17/2021 9:34 PM DOOR PULLER documented in this encounter Results * XR Chest 1 View (05/17/2021 9:34 PM DOOR PULLER) Anatomical Region Laterality Modality Body, Chest N/A Computed Radiogr aphy 05/17/2021 10:3 1 PM DOOR PULLER Impressions 05/17/2021 10:31 PM DOOR PULLER Mild vascular congestion. Electronically signed by: Elvira Blackman M.D. Narrative 05/17/2021 10:31 PM DOOR PULLER EXAMINATION: XR CHEST 1 VIEW HISTORY: The patient is a 60-year-old male who presents with hypoxia. Comparison is made with the previous study dated 05/09/2021. TECHNIQUE: AP portable view of the chest. FINDINGS: Borderline Cardiomegaly with aortic atherosclerosis. ??Mild degree of vascular congestion. ??No focal infiltrate. ??The tip of a retracted Walpole-Radha catheter is in the superior vena cava. Procedure Note Elvira Blackman MD - 05/17/2021 EXAMINATION: XR CHEST 1 VIEW HISTORY: The patient is a 60-year-old male who presents with hypoxia. Comparison is made with the previous study dated 05/09/2021. TECHNIQUE: AP portable view of the chest. FINDINGS: Borderline Cardiomegaly with aortic atherosclerosis. Mild degree of vascular congestion. No focal infiltrate. The tip of a retracted Walpole-Radha catheter is in the superior vena cava. IMPRESSION: Mild vascular congestion. Electronically signed by: Elvira Blackman M.D. Elena Kelly INGREDIENT SCALER HELPER IMG XR PROCEDURES Final Res ult documented in this encounter Visit Diagnoses Not on filedocumented in this encounter Care Teams Mechanics Supervisor Relationship Specialty Start Date End Date Unknown, Notinfile PCP - General 05/01/21 [place] [address] [address] [facility] [address] [address] Surgeon Cardiothoracic Surgery 05/01/21 documented as of this encounter
--- OUTSIDE RECORDS SUMMARY | 2024-06-21 19:52 | XMS_ITS | Encounter Summary ---
Author Organization [facility] Healthcare Address [address] [place] [address] Care Team Providers Care Art Professor Name Role Phone Unknown, Notinfile Primary Care Provider Unavail able Salbador Granados MD Unavailable [phone] Encounter Details Date Type Department Care Team (Latest Contact Info) Description 05/15/2021 4:04 AM LINE PATROLLER - 05/15/2021 11:59 PM LINE PATROLLER Hospital Encounter [facility] Diagnostic Imaging [address] [place] [id number] Discharge Disposition: Discharge to home or self [...] on file Legal Sex Male 11:30 PM LINE PATROLLER Gender Identity Not on file Sexual Orientation [...] Comments XR CHEST 1 VIEW IP Routine 05/15/2021 6:02 AM LINE PATROLLER documented in this encounter Results * XR Chest 1 View (05/15/2021 6:02 AM LINE PATROLLER) Anatomical Region Laterality Modality Body, Chest N/A Computed Radiogr aphy 05/15/2021 9:02 AM LINE PATROLLER Impressions 05/15/2021 9:02 AM LINE PATROLLER Borderline cardiomegaly with no failure. Electronically signed by: Elvira Blackman M.D. Narrative 05/15/2021 9:02 AM LINE PATROLLER EXAMINATION: XR CHEST 1 VIEW HISTORY: The patient is a 60-year-old male who has had prior cardiac surgery. Comparison made with the previous study dated 05/14/2021. TECHNIQUE: AP portable view of the chest. FINDINGS: Borderline cardiomegaly with aortic atherosclerosis. ??No failure. ??No active infiltrate. ??The distal tip of a retracted Sturgeon-Radha catheter is in the proximal superior vena cava. Procedure Note Elvira Blackman MD - 05/15/2021 EXAMINATION: XR CHEST 1 VIEW HISTORY: The patient is a 60-year-old male who has had prior cardiac surgery. Comparison made with the previous study dated 05/14/2021. TECHNIQUE: AP portable view of the chest. FINDINGS: Borderline cardiomegaly with aortic atherosclerosis. No failure. No active infiltrate. The distal tip of a retracted Sturgeon-Radha catheter is in the proximal superior vena cava. IMPRESSION: Borderline cardiomegaly with no failure. Electronically signed by: Elvira Blackman M.D. Varsha Crowder LITIGATION ASSOCIATE IMG XR PROCEDURES Final Re sult documented in this encounter Visit Diagnoses Not on filedocumented in this encounter Care Teams Art Professor Relationship Specialty Start Date End Date Unknown, Notinfile PCP - General 05/01/21 [place] [address] [address] [facility] [address] [address] Surgeon Cardiothoracic Surgery 05/01/21 documented as of this encounter
--- OUTSIDE RECORDS SUMMARY | 2024-06-21 19:52 | XMS_ITS | Encounter Summary ---
Author Organization [facility] Healthcare Address [address] [place] [address] Care Team Providers Care Vp Strategy Name Role Phone Unknown, Notinfile Primary Care Provider Unavail able Salbador Granados MD Unavailable [phone] Encounter Details Date Type Department Care Team (Latest Contact Info) Description 05/24/2021 2:35 AM BOARDER MACHINE - 05/24/2021 11:59 PM BOARDER MACHINE Hospital Encounter [facility] Diagnostic Imaging [address] [place], [place] [id number] Discharge Disposition: Discharge to home or self [...] on file Legal Sex Male 11:30 PM BOARDER MACHINE Gender Identity Not on file Sexual Orientation [...] Comments XR CHEST 1 VIEW IP Routine 05/24/2021 6:58 AM BOARDER MACHINE documented in this encounter Results * XR Chest 1 Vw Portable (05/24/2021 6:58 AM BOARDER MACHINE) Anatomical Region Laterality Modality Body, Chest N/A Computed Radiogr aphy 05/24/2021 9:37 AM BOARDER MACHINE Impressions 05/24/2021 9:37 AM BOARDER MACHINE Persistent bilateral ill-defined alveolar infiltrate unchanged. Electronically signed by: Joie Bernardo M.D. Narrative 05/24/2021 9:37 AM BOARDER MACHINE Examination: XR CHEST 1 VIEW Date: 05/24/2021 2:40 AM History: f/u COVID pneumonia Comparison: 05/23/2021. Findings: Extensive ill-defined alveolar infiltrate is again seen throughout both hemithoraces worse in the left midlung. Normal heart size with sternotomy is seen. ??Right upper extremity PICC line is at the SVC. Procedure Note Joie Bernardo MD - 05/24/2021 Examination: XR CHEST 1 VIEW Date: 05/24/2021 2:40 AM History: f/u COVID pneumonia Comparison: 05/23/2021. Findings: Extensive ill-defined alveolar infiltrate is again seen throughout both hemithoraces worse in the left midlung. Normal heart size with sternotomy is seen. Right upper extremity PICC line is at the SVC. IMPRESSION: Persistent bilateral ill-defined alveolar infiltrate unchanged. Electronically signed by: Joie Bernardo M.D. Salbador Granados MD IMG XR PROCEDURES Final Resu lt documented in this encounter Visit Diagnoses Not on filedocumented in this encounter Additional Health Concerns Infection Onset Date Last Indicated Resolved Time COVID19 05/19/2021 05/19/2021 06/17/2021 3:06 AM BOARDER MACHINE documented as of this encounter Care Teams Vp Strategy Relationship Specialty Start Date End Date Unknown, Notinfile PCP - General 05/01/21 [place] [id number] [address] [facility] [address] [address] Surgeon Cardiothoracic Surgery 05/01/21 documented as of this encounter
--- OUTSIDE RECORDS SUMMARY | 2024-06-21 19:52 | XMS_ITS | Encounter Summary ---
Author Organization [facility] Healthcare Address [address] [place] [address] Care Team Providers Care Surgical Garment Assembly Supervisor Name Role Phone Unknown, Notinfile Primary Care Provider Unavail able Salbador Granados MD Unavailable [phone] Encounter Details Date Type Department Care Team (Latest Contact Info) Description 05/25/2021 2:23 AM FLUSH TESTER - 05/25/2021 11:59 PM FLUSH TESTER Hospital Encounter [facility] Diagnostic Imaging [address] [place] [address] Discharge Disposition: Discharge to home [...] on file Legal Sex Male 11:30 PM FLUSH TESTER Gender Identity Not on file Sexual Orientation [...] Comments XR CHEST 1 VIEW IP Routine 05/25/2021 6:25 AM FLUSH TESTER documented in this encounter Results * XR Chest 1 Vw Portable (05/25/2021 6:25 AM FLUSH TESTER) Anatomical Region Laterality Modality Body, Chest N/A Computed Radiogr aphy 05/25/2021 7:59 AM FLUSH TESTER Impressions 05/25/2021 7:59 AM FLUSH TESTER Worsening pneumonic changes in the left lung. Electronically signed by: Deacon Cummings M.D. Narrative 05/25/2021 7:59 AM FLUSH TESTER EXAMINATION: XR CHEST 1 VIEW DATE: 05/25/2021 2:25 AM HISTORY: 60-year-old man Covid pneumonia heart disease FINDINGS:Compared with the study of the previous day, worsening left lung infiltrate is seen. There is some improvement in the pulmonary vascularity. Cardiomegaly with postsurgical changes stable. Procedure Note Deacon Cummings MD - 05/25/2021 EXAMINATION: XR CHEST 1 VIEW DATE: 05/25/2021 2:25 AM HISTORY: 60-year-old man Covid pneumonia heart disease FINDINGS:Compared with the study of the previous day, worsening left lung infiltrate is seen. There is some improvement in the pulmonary vascularity. Cardiomegaly with postsurgical changes stable. IMPRESSION: Worsening pneumonic changes in the left lung. Electronically signed by: Deacon uCmmings M.D. Salbador Granados MD IMG XR PROCEDURES Final Resu lt documented in this encounter Visit Diagnoses Not on filedocumented in this encounter Additional Health Concerns Infection Onset Date Last Indicated Resolved Time COVID19 05/19/2021 05/19/2021 06/17/2021 3:06 AM FLUSH TESTER documented as of this encounter Care Teams Surgical Garment Assembly Supervisor Relationship Specialty Start Date End Date Unknown, Notinfile PCP - General 05/01/21 [place] [address] [address] Surgeon Cardiothoracic Surgery 05/01/21 documented as of this encounter
--- OUTSIDE RECORDS SUMMARY | 2024-06-21 19:52 | XMS_ITS | Encounter Summary ---
Author Organization [facility] Healthcare Address [address] [place] [address] Care Team Providers Care Staple Processing Machine Operator Name Role Phone Unknown, Notinfile Primary Care Provider Unavail able Salbador Granados MD Unavailable [phone] Encounter Details Date Type Department Care Team (Latest Contact Info) Description 05/26/2021 5:11 AM MARINE PROPULSION TECHNICIAN - 05/26/2021 11:59 PM MARINE PROPULSION TECHNICIAN Hospital Encounter [facility] Diagnostic Imaging [address] [place] [address] Discharge Disposition: Discharge to home [...] on file Legal Sex Male 11:30 PM MARINE PROPULSION TECHNICIAN Gender Identity Not on file Sexual [...] Comments XR CHEST 1 VIEW IP Routine 05/26/2021 6:07 AM MARINE PROPULSION TECHNICIAN documented in this encounter Results * XR Chest 1 Vw Portable (05/26/2021 6:07 AM MARINE PROPULSION TECHNICIAN) Anatomical Region Laterality Modality Body, Chest N/A Computed Radiogr aphy 05/26/2021 7:27 AM MARINE PROPULSION TECHNICIAN Impressions 05/26/2021 7:27 AM MARINE PROPULSION TECHNICIAN Decreasing infiltrate left lung. Electronically signed by: Deacon Cummings M.D. Narrative 05/26/2021 7:27 AM MARINE PROPULSION TECHNICIAN EXAMINATION: XR CHEST 1 VIEW DATE: 05/26/2021 5:15 AM HISTORY: Covid pneumonia follow-up, heart disease FINDINGS:Compared with study the previous day, slight improvement in the aeration of the left lung with continued infiltrate. Cardiomegaly with postsurgical changes. Suspect COPD. Procedure Note Deacon Cummings MD - 12/07/2021 EXAMINATION: XR CHEST 1 VIEW DATE: 05/26/2021 5:15 AM HISTORY: Covid pneumonia follow-up, heart disease FINDINGS:Compared with study the previous day, slight improvement in the aeration of the left lung with continued infiltrate. Cardiomegaly with postsurgical changes. Suspect COPD. IMPRESSION: Decreasing infiltrate left lung. Electronically signed by: Deacon Cummings M.D. Salbador Granados MD IMG XR PROCEDURES Final Resu lt documented in this encounter Visit Diagnoses Not on filedocumented in this encounter Additional Health Concerns Infection Onset Date Last Indicated Resolved Time COVID19 05/19/2021 05/19/2021 06/17/2021 3:06 AM MARINE PROPULSION TECHNICIAN Rhino/Enterovirus 05/26/2021 05/26/2021 06/09/2021 3:05 AM MARINE PROPULSION TECHNICIAN documented as of this encounter Care Teams Staple Processing Machine Operator Relationship Specialty Start Date End Date Unknown, Notinfile PCP - General 05/01/21 [place] [address] [address] Surgeon Cardiothoracic Surgery 05/01/21 documented as of this encounter
--- OUTSIDE RECORDS SUMMARY | 2024-06-21 19:52 | XMS_ITS | Encounter Summary ---
Author Organization [facility] Healthcare Address [address] [place] [address] Care Team Providers Care Belt Sewer Name Role Phone Unknown, Notinfile Primary Care Provider Unavail able Salbador Granados MD Unavailable [phone] Encounter Details Date Type Department Care Team (Latest Contact Info) Description 05/28/2021 5:18 AM PLANT CONTROLLER - 05/28/2021 11:59 PM PLANT CONTROLLER Hospital Encounter [facility] Diagnostic Imaging [address] [place] [address] Discharge Disposition: Discharge to home [...] on file Legal Sex Male 11:30 PM PLANT CONTROLLER Gender Identity Not on file Sexual Orientation [...] Comments XR CHEST 1 VIEW IP Routine 05/28/2021 6:13 AM PLANT CONTROLLER documented in this encounter Results * XR Chest 1 Vw Portable (05/28/2021 6:13 AM PLANT CONTROLLER) Anatomical Region Laterality Modality Body, Chest N/A Computed Radiogr aphy 05/28/2021 8:29 AM PLANT CONTROLLER Impressions 05/28/2021 8:29 AM PLANT CONTROLLER Slight improved aeration especially in the left lung.. Electronically signed by: Deacon Cummings M.D. Narrative 05/28/2021 8:29 AM PLANT CONTROLLER EXAMINATION: XR CHEST 1 VIEW DATE: 05/28/2021 5:20 AM HISTORY: 60-year-old man Covid pneumonia follow-up, coronary artery disease and diabetes FINDINGS:Compared with the study of the previous day, postsurgical changes in the heart and mediastinum with cardiomegaly stable. Infiltrates bilaterally are again seen with slight improvement in the left upper lung. No visible pneumothorax. Procedure Note Deacon Cummings MD - 05/28/2021 EXAMINATION: XR CHEST 1 VIEW DATE: 05/28/2021 5:20 AM HISTORY: 60-year-old man Covid pneumonia follow-up, coronary artery disease and diabetes FINDINGS:Compared with the study of the previous day, postsurgical changes in the heart and mediastinum with cardiomegaly stable. Infiltrates bilaterally are again seen with slight improvement in the left upper lung. No visible pneumothorax. IMPRESSION: Slight improved aeration especially in the left lung.. Electronically signed by: Deacon Cummings M.D. us Salbador Granados MD IMG XR PROCEDURES Final Resu lt documented in this encounter Visit Diagnoses Not on filedocumented in this encounter Additional Health Concerns Infection Onset Date Last Indicated Resolved Time COVID19 05/19/2021 05/19/2021 06/17/2021 3:06 AM PLANT CONTROLLER Rhino/Enterovirus 05/26/2021 05/26/2021 06/09/2021 3:05 AM PLANT CONTROLLER documented as of this encounter Care Teams Belt Sewer Relationship Specialty Start Date End Date Unknown, Notinfile PCP - General 05/01/21 [place] [address] [address] [facility] [address] [address] Surgeon Cardiothoracic Surgery 05/01/21 documented as of this encounter
--- OUTSIDE RECORDS SUMMARY | 2024-06-21 19:52 | XMS_ITS | Encounter Summary ---
Author Organization [facility] Healthcare Address [address] [place] [address] Care Team Providers Care Firer Glost Kiln Name Role Phone Unknown, Notinfile Primary Care Provider Unavail able Salbador Granados MD Unavailable Encounter Details Date Type Department Care Team (Latest Contact Info) Description 05/18/2021 2:55 AM COMPUTER AIDED DESIGN TECHNICIAN - 05/18/2021 11:59 PM COMPUTER AIDED DESIGN TECHNICIAN Hospital Encounter [facility] Diagnostic Imaging [address] [id number] Discharge Disposition: Discharge to home or self [...] on file Legal Sex Male 11:30 PM COMPUTER AIDED DESIGN TECHNICIAN Gender Identity Not on file Sexual [...] Comments XR CHEST 1 VIEW IP Routine 05/18/2021 5:48 AM COMPUTER AIDED DESIGN TECHNICIAN documented in this encounter Results * XR Chest 1 View (05/18/2021 5:48 AM COMPUTER AIDED DESIGN TECHNICIAN) Anatomical Region Laterality Modality Body, Chest N/A Computed Radiogr aphy 05/18/2021 3:15 PM COMPUTER AIDED DESIGN TECHNICIAN Impressions 05/18/2021 3:15 PM COMPUTER AIDED DESIGN TECHNICIAN Postoperative and chronic changes. Electronically signed by: Deandre Lomeli M.D. Narrative 05/18/2021 3:15 PM COMPUTER AIDED DESIGN TECHNICIAN EXAMINATION: XR CHEST 1 VIEW HISTORY: The patient is a 60-year-old male who presents with hypoxia. Comparison is made with the previous study dated 05/17/2021 TECHNIQUE: AP portable view of the chest. FINDINGS: Borderline Cardiomegaly with aortic atherosclerosis and postsurgical change. ??No significant vascular congestion. ??Patchy peripheral infiltrate or scar slightly more on the left.. ??The tip of a retracted Norris-Radha catheter is in the superior vena cava. Procedure Note Deandre Lomeli MD - 05/18/2021 EXAMINATION: XR CHEST 1 VIEW HISTORY: The patient is a 60-year-old male who presents with hypoxia. Comparison is made with the previous study dated 05/17/2021 TECHNIQUE: AP portable view of the chest. FINDINGS: Borderline Cardiomegaly with aortic atherosclerosis and postsurgical change. No significant vascular congestion. Patchy peripheral infiltrate or scar slightly more on the left.. The tip of a retracted Norris-Radha catheter is in the superior vena cava. IMPRESSION: Postoperative and chronic changes. Electronically signed by: Deandre Lomeli M.D. Varsha Crowder SHEETMETAL PATTERNMAKER IMG XR PROCEDURES Final Re sult documented in this encounter Visit Diagnoses Not on filedocumented in this encounter Care Teams Firer Glost Kiln Relationship Specialty Start Date End Date Unknown, Notinfile PCP - General 05/01/21 [place] [id number] [address] [facility] [address] [address] Surgeon Cardiothoracic Surgery 05/01/21 documented as of this encounter
--- OUTSIDE RECORDS SUMMARY | 2024-06-21 19:52 | XMS_ITS | Encounter Summary ---
Author Organization [facility] Healthcare Address [address] [place] [address] Care Team Providers Care Telegraphic Instrument Supervisor Name Role Phone Unknown, Notinfile Primary Care Provider Unavail able Salbador Granados MD Unavailable [phone] Encounter Details Date Type Department Care Team (Latest Contact Info) Description 05/22/2021 8:16 AM DAY CAMP COUNSELOR - 05/22/2021 11:59 PM DAY CAMP COUNSELOR Hospital Encounter [facility] Diagnostic Imaging [address] [place], [place] [phone] Discharge Disposition: Discharge to home or self [...] on file Legal Sex Male 11:30 PM DAY CAMP COUNSELOR Gender Identity Not on file Sexual Orientation [...] Comments XR CHEST 1 VIEW IP Routine 05/22/2021 8:36 AM DAY CAMP COUNSELOR documented in this encounter Results * XR Chest 1 Vw Portable (05/22/2021 8:36 AM DAY CAMP COUNSELOR) Anatomical Region Laterality Modality Body, Chest N/A Computed Radiogr aphy 05/22/2021 9:56 AM DAY CAMP COUNSELOR Impressions 05/22/2021 9:56 AM DAY CAMP COUNSELOR Persistent near confluent alveolar infiltrate throughout the left lower lobe with milder involvement of the left upper lobe and right hemithorax.. Electronically signed by: Joie Bernardo M.D. Narrative 05/22/2021 9:56 AM DAY CAMP COUNSELOR Examination: XR CHEST 1 VIEW Date: 05/22/2021 8:20 AM History: f/u COVID pneumonia Comparison: 05/19/2021. Findings: Persistent ill-defined near confluent alveolar infiltrate is seen in the left lower lobe and perihilar infiltrate with milder involvement of the left upper lobe and periphery of the right upper and lower lobe . ??Abnormal heart size with sternotomy seen with tortuous aorta. ??A right upper extremity PICC line is seen in the SVC. ??Osteopenia and moderate dextroscoliosis is present. Procedure Note Joie Bernardo MD - 05/22/2021 Examination: XR CHEST 1 VIEW Date: 05/22/2021 8:20 AM History: f/u COVID pneumonia Comparison: 05/19/2021. Findings: Persistent ill-defined near confluent alveolar infiltrate is seen in the left lower lobe and perihilar infiltrate with milder involvement of the left upper lobe and periphery of the right upper and lower lobe . Abnormal heart size with sternotomy seen with tortuous aorta. A right upper extremity PICC line is seen in the SVC. Osteopenia and moderate dextroscoliosis is present. IMPRESSION: Persistent near confluent alveolar infiltrate throughout the left lower lobe with milder involvement of the left upper lobe and right hemithorax.. Electronically signed by: Joie Bernardo M.D. Salbador Granados MD IMG XR PROCEDURES Final Resu lt documented in this encounter Visit Diagnoses Not on filedocumented in this encounter Additional Health Concerns Infection Onset Date Last Indicated Resolved Time COVID19 05/19/2021 05/19/2021 06/17/2021 3:06 AM DAY CAMP COUNSELOR documented as of this encounter Care Teams Telegraphic Instrument Supervisor Relationship Specialty Start Date End Date Unknown, Notinfile PCP - General 05/01/21 [place] [id number] [address] [facility] [address] [address] Surgeon Cardiothoracic Surgery 05/01/21 documented as of this encounter
--- OUTSIDE RECORDS SUMMARY | 2024-06-21 19:52 | XMS_ITS | Encounter Summary ---
Author Organization [facility] Healthcare Address [address] [place] [address] Care Team Providers Care Yarn Rewinder Name Role Phone Unknown, Notinfile Primary Care Provider Unavail able Salbador Granados MD Unavailable [phone] Encounter Details Date Type Department Care Team (Latest Contact Info) Description 05/19/2021 3:45 AM TUBE WRAPPER - 05/19/2021 3:13 PM TUBE WRAPPER Hospital Encounter [facility] Diagnostic Imaging [address] [phone] Discharge Disposition: Discharge to home or self [...] on file Legal Sex Male 11:30 PM TUBE WRAPPER Gender Identity Not on file Sexual Orientation [...] Comments XR CHEST 1 VIEW IP Routine 05/19/2021 6:09 AM TUBE WRAPPER documented in this encounter Results * XR Chest 1 View (05/19/2021 6:09 AM TUBE WRAPPER) Anatomical Region Laterality Modality Body, Chest N/A Computed Radiogr aphy 05/19/2021 1:10 PM TUBE WRAPPER Impressions 05/19/2021 1:10 PM TUBE WRAPPER Persistent ill-defined patchy left perihilar upper and lower lobe alveolar infiltrate and mild on the right. Electronically signed by: [place] Rios 05/19/2021 1:10 PM TUBE WRAPPER Examination: XR CHEST 1 VIEW Date: 05/19/2021 3:50 AM History: s/p CABG Comparison: 05/18/2021. Findings: Normal heart size, tortuous aorta and sternotomy is seen. Persistent ill-defined patchy left perihilar lingular/lower lobe alveolar infiltrate with mild peripheral right upper involvement is unchanged. There is no interval consolidation or effusion. ??Perihilar bronchovascular thickening is unchanged. Procedure Note Joie Bernardo MD - 05/19/2021 Examination: XR CHEST 1 VIEW Date: 05/19/2021 3:50 AM History: s/p CABG Comparison: 05/18/2021. Findings: Normal heart size, tortuous aorta and sternotomy is seen. Persistent ill-defined patchy left perihilar lingular/lower lobe alveolar infiltrate with mild peripheral right upper involvement is unchanged. There is no interval consolidation or effusion. Perihilar bronchovascular thickening is unchanged. IMPRESSION: Persistent ill-defined patchy left perihilar upper and lower lobe alveolar infiltrate and mild on the right. Electronically signed by: Joie Bernardo M.D. Varsha Crowder HVAC SALES ENGINEER IMG XR PROCEDURES Final Re sult documented in this encounter Visit Diagnoses Not on filedocumented in this encounter Care Teams Yarn Rewinder Relationship Specialty Start Date End Date Unknown, Notinfile PCP - General 05/01/21 [place] [id number] [address] [facility] [address] [address] Surgeon Cardiothoracic Surgery 05/01/21 documented as of this encounter
--- OUTSIDE RECORDS SUMMARY | 2024-06-21 19:52 | XMS_ITS | Encounter Summary ---
Author Organization [facility] Healthcare Address [address] [place] [address] Care Team Providers Care Director Post Name Role Phone Unknown, Notinfile Primary Care Provider Unavail able Salbador Granados MD Unavailable [phone] Encounter Details Date Type Department Care Team (Latest Contact Info) Description 05/16/2021 4:08 AM STRUCTURAL ENGINEERING TECHNICIAN - 05/16/2021 11:59 PM STRUCTURAL ENGINEERING TECHNICIAN Hospital Encounter [facility] Diagnostic Imaging [address] [phone] Discharge Disposition: Discharge to home or self [...] on file Legal Sex Male 11:30 PM STRUCTURAL ENGINEERING TECHNICIAN Gender Identity Not on file [...] Comments XR CHEST 1 VIEW IP Routine 05/16/2021 5:29 AM STRUCTURAL ENGINEERING TECHNICIAN documented in this encounter Results * XR Chest 1 View (05/16/2021 5:29 AM STRUCTURAL ENGINEERING TECHNICIAN) Anatomical Region Laterality Modality Body, Chest N/A Computed Radiogr aphy 05/16/2021 9:16 AM STRUCTURAL ENGINEERING TECHNICIAN Impressions 05/16/2021 9:16 AM STRUCTURAL ENGINEERING TECHNICIAN No change from previous. Electronically signed by: Humphrey Mojica M.D. Narrative 05/16/2021 9:16 AM STRUCTURAL ENGINEERING TECHNICIAN EXAM: ?? XR CHEST 1 VIEW DATE: ?? 05/16/2021 4:10 AM CLINICAL HISTORY: ?? Coronary artery bypass grafting. COMPARISON: ?? 05/15/2021 FINDINGS: ?? Portable AP radiograph of the chest was obtained. ??There are postsurgical changes from a median sternotomy. ??Right jugular venous catheter remains in place with tip in the superior vena cava. There is borderline cardiomegaly. ??There is mild pulmonary vascular congestion. ??No evidence of a confluent pulmonary infiltrate or pleural effusion. Procedure Note Humphrey Mojica MD - 05/16/2021 EXAM: XR CHEST 1 VIEW DATE: 05/16/2021 4:10 AM CLINICAL HISTORY: Coronary artery bypass grafting. COMPARISON: 05/15/2021 FINDINGS: Portable AP radiograph of the chest was obtained. There are postsurgical changes from a median sternotomy. Right jugular venous catheter remains in place with tip in the superior vena cava. There is borderline cardiomegaly. There is mild pulmonary vascular congestion. No evidence of a confluent pulmonary infiltrate or pleural effusion. IMPRESSION: No change from previous. Electronically signed by: Humphrey Mojica M.D. Varsha Crowder CUSTOMER RELATIONSHIP SPECIALIST IMG XR PROCEDURES Final Re sult documented in this encounter Visit Diagnoses Not on filedocumented in this encounter Care Teams Director Post Relationship Specialty Start Date End Date Unknown, Notinfile PCP - General 05/01/21 [place] [id number] [address] Surgeon Cardiothoracic Surgery 05/01/21 documented as of this encounter
--- OUTSIDE RECORDS SUMMARY | 2024-06-21 19:52 | XMS_ITS | Encounter Summary ---
Author Organization [facility] Healthcare Address [address] [place] [address] Care Team Providers Care Digital Proofing And Platemaker Name Role Phone Unknown, Notinfile Primary Care Provider Unavail able Salbador Granados MD Unavailable [phone] Encounter Details Date Type Department Care Team (Latest Contact Info) Description 05/19/2021 3:14 PM ELECTRICAL PRODUCTS ENGINEER - 05/19/2021 11:59 PM ELECTRICAL PRODUCTS ENGINEER Hospital Encounter [facility] Diagnostic Imaging [address] [place] [address] Discharge Disposition: Discharge to home [...] on file Legal Sex Male 11:30 PM ELECTRICAL PRODUCTS ENGINEER Gender Identity Not on file Sexual Orientation [...] Procedure Name Priority Date/Time Associated Diagnosis Comments SNIFF TEST ED Urgent/IP Urgent 05/19/2021 4:05 PM ELECTRICAL PRODUCTS ENGINEER documented in this encounter Results * FL Sniff Test (05/19/2021 4:05 PM ELECTRICAL PRODUCTS ENGINEER) Anatomical Region Laterality Modality Head and Neck N/A Computed Radiogr aphy 05/20/2021 4:47 PM ELECTRICAL PRODUCTS ENGINEER Impressions 05/20/2021 4:47 PM ELECTRICAL PRODUCTS ENGINEER FINDINGS/IMPRESSION: Fluoroscopy was used while patient attempted deep inspiration and expiration with a single image obtained at each extreme and there was no significant diaphragm motion. Electronically signed by: Deandre Lomeli M.D. Narrative 05/20/2021 4:47 PM ELECTRICAL PRODUCTS ENGINEER EXAMINATION: FL SNIFF TEST HISTORY: Evaluate diaphragm motion ORDER DATE: 05/19/2021 3:15 PM Procedure Note Deandre Lomeli MD - 05/20/2021 EXAMINATION: FL SNIFF TEST HISTORY: Evaluate diaphragm motion ORDER DATE: 05/19/2021 3:15 PM IMPRESSION: FINDINGS/IMPRESSION: Fluoroscopy was used while patient attempted deep inspiration and expiration with a single image obtained at each extreme and there was no significant diaphragm motion. Electronically signed by: Deandre Lomeli M.D. us Caleb MOODY IMG FLUOROSCOPY RADHA AGARWAL Final Result documented in this encounter Visit Diagnoses Not on filedocumented in this encounter Additional Health Concerns Infection Onset Date Last Indicated Resolved Time COVID: Suspected 05/19/2021 05/19/2021 05/19/2021 10:03 PM ELECTRICAL PRODUCTS ENGINEER COVID19 05/19/2021 05/19/2021 06/17/2021 3:06 AM ELECTRICAL PRODUCTS ENGINEER documented as of this encounter Care Teams Digital Proofing And Platemaker Relationship Specialty Start Date End Date Unknown, Notinfile PCP - General 05/01/21 [place] [address] [address] Surgeon Cardiothoracic Surgery 05/01/21 documented as of this encounter
--- OUTSIDE RECORDS SUMMARY | 2024-06-21 19:52 | XMS_ITS | Encounter Summary ---
Author Organization [facility] Healthcare Address [address] [place] [address] Care Team Providers Care Antique Finisher Name Role Phone Unknown, Notinfile Primary Care Provider Unavail able Salbador Granados MD Unavailable [phone] Encounter Details Date Type Department Care Team (Latest Contact Info) Description 05/23/2021 3:49 AM TYPE ROLLING MACHINE OPERATOR - 05/23/2021 11:59 PM TYPE ROLLING MACHINE OPERATOR Hospital Encounter [facility] Diagnostic Imaging [address] [place] [address] Discharge Disposition: Discharge to home [...] on file Legal Sex Male 11:30 PM TYPE ROLLING MACHINE OPERATOR Gender Identity Not on file [...] Comments XR CHEST 1 VIEW IP Routine 05/23/2021 5:19 AM TYPE ROLLING MACHINE OPERATOR documented in this encounter Results * XR Chest 1 Vw Portable (05/23/2021 5:19 AM TYPE ROLLING MACHINE OPERATOR) Anatomical Region Laterality Modality Body, Chest N/A Computed Radiogr aphy 05/23/2021 8:19 AM TYPE ROLLING MACHINE OPERATOR Impressions 05/23/2021 8:19 AM TYPE ROLLING MACHINE OPERATOR Persistent bilateral perihilar mid and lower lung predominant alveolar infiltrate with progression on the right. Electronically signed by: Joie Bernardo M.D. Narrative 05/23/2021 8:19 AM TYPE ROLLING MACHINE OPERATOR Examination: XR CHEST 1 VIEW Date: 05/23/2021 3:50 AM History: f/u COVID pneumonia Comparison: 05/22/2021. Findings: There is persistent ill-defined alveolar infiltrate throughout the left mid and lower lung with increasing involvement of the right midlung and perihilar region extending into the upper lobe. Normal heart size and sternotomy is seen. ??Right upper extremity PICC line is at the SVC. Procedure Note Joie Bernardo MD - 05/23/2021 Examination: XR CHEST 1 VIEW Date: 05/23/2021 3:50 AM History: f/u COVID pneumonia Comparison: 05/22/2021. Findings: There is persistent ill-defined alveolar infiltrate throughout the left mid and lower lung with increasing involvement of the right midlung and perihilar region extending into the upper lobe. Normal heart size and sternotomy is seen. Right upper extremity PICC line is at the SVC. IMPRESSION: Persistent bilateral perihilar mid and lower lung predominant alveolar infiltrate with progression on the right. Electronically signed by: Joie Bernardo M.D. Salbador Granados MD IMG XR PROCEDURES Final Resu lt documented in this encounter Visit Diagnoses Not on filedocumented in this encounter Additional Health Concerns Infection Onset Date Last Indicated Resolved Time COVID19 05/19/2021 05/19/2021 06/17/2021 3:06 AM TYPE ROLLING MACHINE OPERATOR documented as of this encounter Care Teams Antique Finisher Relationship Specialty Start Date End Date Unknown, Notinfile PCP - General 05/01/21 [place] [id number] [address] [address] Surgeon Cardiothoracic Surgery 05/01/21 documented as of this encounter
--- OUTSIDE RECORDS SUMMARY | 2024-06-21 19:52 | XMS_ITS | Encounter Summary ---
Author Organization [facility] Healthcare Address [address] [place] [address] Care Team Providers Care Baton Twirler Name Role Phone Unknown, Notinfile Primary Care Provider Unavail able Salbador Granados MD Unavailable [phone] Encounter Details Date Type Department Care Team (Latest Contact Info) Description 05/17/2021 7:31 AM RIVETER PNEUMATIC - 05/17/2021 9:20 PM RIVETER PNEUMATIC Hospital Encounter [facility] Diagnostic Imaging [address] [phone] Discharge Disposition: Discharge to home or self [...] on file Legal Sex Male 11:30 PM RIVETER PNEUMATIC Gender Identity Not on file Sexual Orientation [...] Associated Diagnosis Comments XR CHEST 1 VIEW ED Urgent/IP Urgent 05/17/2021 7:41 AM RIVETER PNEUMATIC documented in this encounter Results * XR Chest 1 Vw Portable (05/17/2021 7:41 AM RIVETER PNEUMATIC) Anatomical Region Laterality Modality Body, Chest N/A Computed Radiogr aphy 05/17/2021 1:45 PM RIVETER PNEUMATIC Impressions 05/17/2021 1:45 PM RIVETER PNEUMATIC No change from previous. Electronically signed by: Humphrey Mojica M.D. Narrative 05/17/2021 1:45 PM RIVETER PNEUMATIC EXAM: ?? XR CHEST 1 VIEW DATE: ?? 05/17/2021 7:35 AM CLINICAL HISTORY: ?? Postoperative care. COMPARISON: ?? Previous study from 05/17/2021. FINDINGS: ?? Portable AP radiograph of the chest was obtained. ??There are postsurgical changes from a median sternotomy. ??A right jugular venous catheter remains in place with tip in the superior vena cava. There is borderline cardiomegaly. ??There is pulmonary vascular congestion. ??Infiltrate in the left lower lobe appears unchanged from previous. ??The right lung remains clear. ??A small left pleural effusion cannot be excluded. Procedure Note Humphrey Mojica MD - 05/17/2021 EXAM: XR CHEST 1 VIEW DATE: 05/17/2021 7:35 AM CLINICAL HISTORY: Postoperative care. COMPARISON: Previous study from 05/17/2021. FINDINGS: Portable AP radiograph of the chest was obtained. There are postsurgical changes from a median sternotomy. A right jugular venous catheter remains in place with tip in the superior vena cava. There is borderline cardiomegaly. There is pulmonary vascular congestion. Infiltrate in the left lower lobe appears unchanged from previous. The right lung remains clear. A small left pleural effusion cannot be excluded. IMPRESSION: No change from previous. Electronically signed by: Humphrey Mojica M.D. Salbador Granadso MD IMG XR PROCEDURES Final Resu lt documented in this encounter Visit Diagnoses Not on filedocumented in this encounter Care Teams Baton Twirler Relationship Specialty Start Date End Date Unknown, Notinfile PCP - General 05/01/21 [place] [address] [facility] [facility] [address] [address] Surgeon Cardiothoracic Surgery 05/01/21 documented as of this encounter
--- OUTSIDE RECORDS SUMMARY | 2024-06-21 19:52 | XMS_ITS | Encounter Summary ---
Author Organization [facility] Healthcare Address [address] [place] [address] Care Team Providers Care Physician Advisor Name Role Phone Unknown, Notinfile Primary Care Provider Unavail able Salbador Granados MD Unavailable [phone] Encounter Details Date Type Department Care Team (Latest Contact Info) Description 05/17/2021 2:20 AM TITLE ASSISTANT - 05/17/2021 7:30 AM TITLE ASSISTANT Hospital Encounter [facility] Diagnostic Imaging [address] [phone] Discharge Disposition: Discharge to home or self [...] on file Legal Sex Male 11:30 PM TITLE ASSISTANT Gender Identity Not on file Sexual [...] XR CHEST 1 VIEW Critical/Life-Th reatening 05/17/2021 2:34 AM TITLE ASSISTANT documented in this encounter Results * XR Chest 1 Vw Portable (05/17/2021 2:34 AM TITLE ASSISTANT) Anatomical Region Laterality Modality Body, Chest N/A Computed Radiogr aphy 05/17/2021 11:3 5 AM TITLE ASSISTANT Impressions 05/17/2021 11:35 AM TITLE ASSISTANT 1. ??Status post median sternotomy. 2. ??Right jugular venous catheter in place. 3. ??Pulmonary vascular congestion. 4. ??Mild infiltrate in the left lower lobe and possible small left pleural effusion. Electronically signed by: Humphrey Mojica M.D. Narrative 05/17/2021 11:35 AM TITLE ASSISTANT EXAM: ?? XR CHEST 1 VIEW DATE: ?? 05/17/2021 2:25 AM CLINICAL HISTORY: ?? Shortness of breath. COMPARISON: ?? 05/16/2021. FINDINGS: ?? Portable AP radiograph of the chest was obtained. ??There are postsurgical changes from a median sternotomy. ??Right jugular venous catheter remains in place with tip in the superior vena cava. There is borderline cardiomegaly. ??There is mild pulmonary vascular congestion. ??There is mild infiltrate in the left perihilar region. The right lung remains clear. ??A small left pleural effusion cannot be excluded. Procedure Note Humphrey Mojica MD - 05/17/2021 EXAM: XR CHEST 1 VIEW DATE: 05/17/2021 2:25 AM CLINICAL HISTORY: Shortness of breath. COMPARISON: 05/16/2021. FINDINGS: Portable AP radiograph of the chest was obtained. There are postsurgical changes from a median sternotomy. Right jugular venous catheter remains in place with tip in the superior vena cava. There is borderline cardiomegaly. There is mild pulmonary vascular congestion. There is mild infiltrate in the left perihilar region. The right lung remains clear. A small left pleural effusion cannot be excluded. IMPRESSION: 1. Status post median sternotomy. 2. Right jugular venous catheter in place. 3. Pulmonary vascular congestion. 4. Mild infiltrate in the left lower lobe and possible small left pleural effusion. Electronically signed by: Humphrey Mojica M.D. Laly Lopes MD IMG XR PROCEDURES Final Res ult documented in this encounter Visit Diagnoses Not on filedocumented in this encounter Care Teams Physician Advisor Relationship Specialty Start Date End Date Unknown, Notinfile PCP - General 05/01/21 [place] [address] [facility] [facility] [id number] [place] [address] Surgeon Cardiothoracic Surgery 05/01/21 documented as of this encounter
--- OUTSIDE RECORDS SUMMARY | 2024-06-21 19:55 | XMS_ITS | Encounter Summary ---
Author Organization [facility] Healthcare Address [address] [place] [address] Care Team Providers Care Senior Property Accountant Name Role Phone Unknown, Notinfile Primary Care Provider Unavail able Rhina Granados MD Unavailable [phone] Encounter Details Date Type Department Care Team (Late st Contact Info) Description 05/14/2021 11:35 AM STAFF FORESTER - 05/14/2021 12:35 PM STAFF FORESTER Surgery [facility] Operating Room [address] [place] [address] Braulio Ortega MD [address] [facility] [address] [place] [address] CYSTOSCOPY with clot evacuation and fulguration Surgery Details Date/Time Status Location OR Service Patient Class Case Class Case Type Trauma Case? 05/14/2021 11:35 AM Posted OPERATING ROOM OR Urology Inpatient Urgent - 24 hours Panel 1 Procedure LRB Anes Op Region Wound Class Comments CYSTOSCOPY with clot evacuation and fulguration N/A General Urethra Class II - Clean Contaminated Surgeon Surgeon Role Service Panel Braulio Ortega MD Primary Urology 1 documented in this encounter Social History Tobacco Use Types Packs/Day Years Used Date Smoking Tobacco: Every Day Cigarettes 1 40 Tobacco Cessation:Ready to Q uit: Yes; Counseling Given: Yes Comments:Smoking History Packs/day: 1 Packs Alcohol Use Standard Drinks/Week Comments No 0 (1 standard drink = 0.6 oz pur e alcohol) Sex and Gender Information Value Date Recorded Sex Assigned at Not on file Legal Sex Male 11:30 PM STAFF FORESTER Gender Identity Not on file Sexual Orientation Not on file documented as of this encounter Last Filed Vital Signs Vital Sign Reading Time Taken Comments Blood Pressure 86/60 05/14/2021 12:03 PM STAFF FORESTER Pulse 86 05/14/2021 12:03 PM STAFF FORESTER Temperature 37 ??C (98.6 ??F) 05/14/2021 12:03 PM STAFF FORESTER Respiratory Rate 18 05/14/2021 12:03 PM STAFF FORESTER Oxygen Saturation 91% 05/14/2021 12:03 PM STAFF FORESTER Inhaled Oxygen Concentration - - Weight 79 kg (174 lb 2.6 oz) 05/14/2021 6:00 AM STAFF FORESTER Height 175.3 cm (5' 9.02 ) 05/05/2021 3:47 PM CS T Body Mass Index 24.83 05/25/2021 5:55 PM STAFF FORESTER documented in this encounter Discharge Summaries * Anibal Lara MD - 06/03/2021 11:26 AM CST Inpatient Discharge Summary BRIEF OVERVIEW Admitting Provider: Nalini Clayton MD Discharge Provider: Robbie Celeste MD Primary Care Physician at Discharge: Unknown, Notinfile None Admission Date: 05/01/2021 Discharge Date: 06/03/2021 Admission Location: [facility] Problems/Diagnoses: Principal Problem: ST elevation myocardial infarction (STEMI) ([facility]) Resolved Problems: No resolved hospital problems. DETAILS OF HOSPITAL STAY Presenting Problem/History of Present Illness: Chest pain Hospital Course: Patient is a 60 y.o. male with past medical history of CAD status post MT, hypertension, hyperlipidemia, PVD, COPD and tobacco abuse who presented to the hospital due to chest pain. Per review of therecords patient had bladder surgery yesterday at [facility]. He was dischargedhome but returned back to the hospital due to dizziness. He states he was trying to go home when hesuddenly felt dizzy and broke out in a sweat. After arrival to [facility] patient complained chest pain and repeat EKG was performed which showed ST elevation in anterior chest leads. Due to the above patient was transferred to [facility] for further evaluation and care. On arrival to the emergency room patient was seen by Cardiology and taken for cardiac catheterization and per review of the records he was found to have rethrombosis a previous LAD stents. PTCA of the LAD was done and patient was placed on IABP and admitted to CVU for further management and care. Pt admitted and treated for : 1. Acute anterior STEMI: CAD, post LHC, post CABG 05/04, IABP p;aced, removed 05/06. CTS consulted.Continue ASA, statin, plavix, beta octavia 2. Acute hypoxemic respiratory failure: 2/ COVID-19. Transferred to ICU 05/17 for worsening hypoxemia/increased O2 requirements. CTPE neg for PE 3. chronic systolic HF; EF 37% 4. COVID-19 PNA: completed remdesivoir, decadron. 5. Possible bacterial PNA: continue cefepime + vancomycin. ID saw, Omnicef at dc to complete 7 days 6. RSV +ve: respiratory precautions 7. Cardiogenic Shock, post CABG: resolved. was on levophed and dobutamine. Now on midodrine. 8. Gross hematuria: Post cystoscopy, clot evacuation by urology on 05/14. TURBT at [place]. Osorio catheter in place. Voiding trial today. 9. V.fib 05/03: brief. Received amiodarone, dobutamine gtt. 10. DM2: continue SSI 11. Acute blood loss anemia: received blood transfusion 12. Tobacco smoking Active Issues Requiring Follow-up: Test Results Pending at Discharge: Operative Procedures Performed: Procedure(s): CYSTOSCOPY with clot evacuation and fulguration Other Procedures: Pertinent Test Results: Discharge Details Physical Exam at Discharge: Discharge Condition: stable Pulse: 87 Resp: 18 BP: 115/77 Temp: 36.6 ??C (97.8 ??F) Weight: 76.3 kg (168 lb 3.4 oz) Pertinent Exam Findings at Discharge: Gen: In no apparent distress Neuro: Alert, oriented in time place and person. weakness. Pulmonary: Not dyspneic. No crackles or rhonchi. Cardiovascular: HS 1, 2 . regular rhythm. No murmurs heard. GI: abdomen not distended, soft, non-tender. Musculoskeletal: No joint swelling, tenderness or warmth. : Osorio catheter in place. Urine clear Discharge Disposition: home Code Status at Discharge: full Discharge Instructions: Activity Instructions Discharge activity: Resume normal activity Diet Instructions Adult Discharge Diet Diet Type: Low fat intake Restrict salt intake to less than 2000 mg per day Instructions for follow-up (appointment date and time): [id number] Recommend to eat a generally healthy diet that includes a variety of fruits, vegetables, whole-grain breads, low-fat dairy products, beans, lean meats, and fish. Avoid saturated and trans fats and limit sodium to less than 2,300 mg per day. Avoid foods like desserts, fast food, fried/breaded foods,deli meats, sausage, ruiz, and gravies/sauces. For a Consistent Carbohydrate Diet: Aim to consume 3 meals each day with 60-75 grams of carbohydrate at each one, avoid skipping meals. Avoid sugary drinks like lemonade, regular soda, gatorade, and sweet tea and drink water throughout the day.Monitor your blood sugar and take insulin and medication as directed by your doctor. Call [phone] to speak with a dietitian about any diet related concerns. Recommend to follow up with outpatient nutrition counseling, ask your doctor for a referral and call [phone] to make an appointment. Other Instructions Ambulatory referral to Home Health Service Line: Home Health Primary disciplines requested: Shelter Home Health Services: Wound/ Ostomy Care Physician to follow patient's care (the person listed here will be responsible for signing ongoing orders): Referring Provider Requested Start of Care Date: Within 2 - 3 Days Special instructions (labs, wound care, etc.): CBC, CMP in 7 days. Remove chest tube sutures in 7 days I attest that I or another qualified licensed provider saw the patient 90 days prior to or 30 days post admission and this face to face encounter meets the necessary Home Health requirements. The face to face encounter occurred on (date): 05/11/2021 The encounter with the patient was in whole, or in part, for the following medical condition, whichis the primary reason for home health care. (List medical condition): s/p CABG I certify that, based on my findings, the following services are medically necessary skilled home health services: Wound/ Ostomy Care Clinical findings that support the need for home care: Medical condition requiring skilled assessment/education Wound requiring care, assessment, and instruction I certify that my clinical findings support patient's homebound status. Homebound criteria met because: Shortness of breath with minimal exertion Pain and impaired mobility post-op Discharge Medications: Current Medications TAKE these medications albuterol HFA 90 mcg/actuation inhaler Inhale 8 puffs every 6 (six) hours as needed for wheezing Commonly known as: PROVENTIL HFA,VENTOLIN HFA,PROAIR HFA aspirin 81 mg enteric coated tablet Take 1 tablet (81 mg total) by mouth daily Start taking on: June 04, 2021 carvediloL 3.125 mg tablet Take 1 tablet (3.125 mg total) by mouth 2 (two) times a day with meals Commonly known as: COREG cefdinir 300 mg capsule Take 1 capsule (300 mg total) by mouth 2 (two) times a day for 3 days Commonly known as: OMNICEF clopidogreL 75 mg tablet Take 1 tablet (75 mg total) by mouth daily Commonly known as: PLAVIX Start taking on: June 04, 2021 dapagliflozin 10 mg tablet Take 1 tablet (10 mg total) by mouth daily For: heart failure with reduced ejection fraction Commonly known as: FARXIGA Start taking on: June 04, 2021 fenofibrate 160 mg tablet take 1 tablet (160MG) by oral route every day Commonly known as: TRIGLIDE glimepiride 2 mg tablet take 1 tablet (2MG) by oral route every day Commonly known as: AMARYL guaiFENesin 20 mg/mL syrup Take 10 mL (200 mg total) by mouth 4 (four) times a day as needed for cough Commonly known as: ROBITUSSIN Lantus U-100 Insulin 100 unit/mL cartridge inject by subcutaneous route as per insulin protocol Generic drug: insulin glargine midodrine 5 mg tablet Take 3 tablets (15 mg total) by mouth 3 (three) times a day For: a feeling of dizziness upon standing due to a drop in blood pressure Commonly known as: PROAMATINE phenazopyridine 100 mg tablet Commonly known as: PYRIDIUM pravastatin 80 mg tablet take 1 tablet (80MG) by oral route every day Commonly known as: PRAVACHOL Protonix 40 mg EC tablet take 1 tablet (40MG) by oral route every day Generic drug: pantoprazole DR zakia-docusate 8.6-50 mg Take 2 tablets by mouth every 12 (twelve) hours Commonly known as: PERICOLACE sodium bicarbonate 650 mg tablet Take 2 tablets (1,300 mg total) by mouth 2 (two) times a day Outpatient Follow-Up: Future Appointments Date Time Provider Department Center 06/16/2021 2:00 PM Rhina Granados MD [facility] Contact Information for Follow-ups [facility] Home Care Services Specialty: Home Health and Hospice [address] [place] [address] Next Steps: Follow up Questions: Service Line: Home Health Primary disciplines requested: Shelter Home Health Services: Wound/ Ostomy Care Physician to follow patient's care (the person listed here will be responsible for signing ongoing orders): Referring Provider Requested Start of Care Date: Within 2 - 3 Days Special instructions (labs, wound care, etc.): CBC, CMP in 7 days. Remove chest tube sutures in 7 days I attest that I or another qualified licensed provider saw the patient 90 days prior to or 30 days post admission and this face to face encounter meets the necessary Home Health requirements. The face to face encounter occurred on (date): 05/11/2021 The encounter with the patient was in whole, or in part, for the following medical condition, whichis the primary reason for home health care. (List medical condition): s/p CABG I certify that, based on my findings, the following services are medically necessary skilled home health services: Wound/ Ostomy Care Clinical findings that support the need for home care: Medical condition requiring skilled assessment/education Wound requiring care, assessment, and instruction I certify that my clinical findings support patient's homebound status. Homebound criteria met because: Shortness of breath with minimal exertion Pain and impaired mobility post-op Referral Status: External - Ready to Schedule Nalini Clayton MD Specialty: Cardiovascular Disease, Internal Medicine Relationship: Referring Physician Lashawn [facility] [id number] Next Steps: Follow up Instructions: 2 weeks Questions: Instructions for follow-up (appointment date and time): 2 weeks To provider: NALINI CLAYTON F FORESTER documented in this encounter Discharge Instructions * Discharge Instr - Diet* Cristina Anaya RD - 05/05/2021 3:50 PM STAFF FORESTER Recommend to eat a generally healthy diet that includes a variety of fruits, vegetables, whole-grain breads, low-fat dairy products, beans, lean meats, and fish. Avoid saturated and trans fats and limit sodium to less than 2,300 mg per day. Avoid foods like desserts, fast food, fried/breaded foods,deli meats, sausage, ruiz, and gravies/sauces. For a Consistent Carbohydrate Diet: Aim to consume 3 meals each day with 60-75 grams of carbohydrate at each one, avoid skipping meals. Avoid sugary drinks like lemonade, regular soda, gatorade, and sweet tea and drink water throughout the day.Monitor your blood sugar and take insulin and medication as directed by your doctor. Call [phone] to speak with a dietitian about any diet related concerns. Recommend to follow up with outpatient nutrition counseling, ask your doctor for a referral and call [phone] to make an appointment. F FORESTER documented in this encounter Medications at Time [...] needed for wheezing 1 each 06/03/2021 2 clopidogreL (PLAVIX) 75 mg tablet Take 1 [...] as per insulin protocol 0 04/13/2012 2 midodrine (PROAMATINE) 5 mg tabletIndications :Symptomatic Orthostatic Hypotension Take 3 tablets (15 mg total) by mouth 3 (three) times a day 270 tablet 06/03/[address] (PROTONIX) 40 mg EC tablet take 1 tablet (40MG) by oral route every day 0 04/13/2012 2 phenazopyridine (PYRIDIUM) 100 mg tablet 05/01/2021 2 pravastatin (PRAVACHOL) 80 mg tablet take 1 tablet (80MG) by oral route every day 0 04/13/2012 2 senna-docusate (PERICOLACE) 8.6-50 mg Take 2 tablets by mouth every 12 (twelve) hours 30 tablet 06/03/2021 2 documented as of this encounter Ordered Prescriptions Prescription Sig Dispense Quantity Refills Last Filled Start Date End Date carvediloL (COREG) 3.125 mg tablet Take 1 tablet (3.125 mg total) by mouth 2 (two) times a day with meals 60 tablet 3 06/03/2021 aspirin 81 mg enteric coated tablet Take 1 tablet (81 mg total) by mouth daily 30 tablet 11 06/04/2021 cefdinir (OMNICEF) 300 mg capsule Take 1 capsule (300 mg total) by mouth 2 (two) times a day for 3 days 6 capsule 06/03/2021 1 sodium bicarbonate 650 mg tablet Take 2 tablets (1,300 mg total) by mouth 2 (two) times a day 120 tablet 06/03/2021 2 senna-docusate (PERICOLACE) 8.6-50 mg Take 2 tablets by mouth every 12 (twelve) hours 30 tablet 06/03/2021 2 midodrine (PROAMATINE) 5 mg tabletIndications: Symptomatic Orthostatic Hypotension Take 3 tablets (15 mg total) by mouth 3 (three) times a day 270 tablet 06/03/2021 2 guaiFENesin (ROBITUSSIN) syrup 100 mg/5 mL Take 10 mL (200 mg total) by mouth 4 (four) times a day as needed for cough 120 mL 06/03/2021 2 dapagliflozin (FARXIGA) 10 mg tabletIndications: heart failure with reduced ejection fraction Take 1 tablet (10 mg total) by mouth daily 30 tablet 3 06/04/2021 2 clopidogreL (PLAVIX) 75 mg tablet Take 1 tablet (75 mg total) by mouth daily 30 tablet 3 06/04/2021 2 albuterol HFA (PROVENTIL HFA,VENTOLIN HFA,PROAIR HFA) 90 mcg/actuation inhaler Inhale 8 puffs every 6 (six) hours as needed for wheezing 1 each 06/03/2021 2 documented in this encounter Discharge Disposition Disposition Code Departure Means Destination Discharge to home, home health skilled care documented in this encounter Progress Notes * Yves Weinberg MD - 06/03/2021 3:39 PM CST Nephrology Progress Note [facility] SUBJECTIVE 06/03/21 Weak but better. DC planning ongoing. Getting PT. Very deconditioned. 06/02/21 Cough and dyspnea better. Good UO. Weak. Na 135, cr nl. Mild NAGMA. 06/01 Doing a little better. All labs reviewed. Stable renal fn and lytes. 05/31 Na 132, Cr normal. To be transferred to today. Good UO. All labs reviewed. Bicarb better. Very deconditioned. Agreeable to SNF. 05/29/21 Remains frail. BP soft, on hi dose midodrine. Still requiring sig oxygen. Very deconditioned. May need SNF vs LTAC. Na 130, bicarb 18. Cr normal. 05/28/21 Appears better. All labs and data reviewed. Na and CR stable. Started on lisinopril. Will DC. On high dose midodrine. O2 sats still not Acceptable. Na 135, bicarb 17. Cr normal. Mg low, being replaced. 05/27/21 Doing about the same. Has completed tx for COVID. Still in ICU. All labs reviewed. 05/26/21 Doing fair. Appears comfortable. Some dyspnea. All labs and data reviewed. Na and Cr stable. Good UO. 05/25/21 Doing fair. All labs reviewed. Renal fn nl. Na 132. Overall slowly improving. 05/24/21 Pt seen/examined. All labs and data reviewed. Getting IV lasix PRN. Na 133, lytes and renal fn stable. 05/23/21 Pt seen/examined. All labs reviewed. Receiving K phos. BP soft, on hi dose midodrine. Na 132. I gave lasix 40 iv times 1 for falling UO. Remains in ICU. 05/22/21 Pt seen/examined. All labs and data reviewed. Na 134, Cr 0.62. Dyspnea better. Eager to go home but remains in ICU. Stable renal fn and lytes. OK for loop diuretics PRN. Avoid thiazides. 05/21/21 Pt seen/examined. All labs reviewed. Off lasix drip. Still dyspneic. Renal fn better. Na 135. 05/20/21 Pt seen/examined. All labs and data reviewed. COVID pos. On Dex and remdisivir. On lasix drip. Na 130, Cr 1.44. 05/19 Cr 1.41 Na 130. Started on Corlanor. Appears stable. BP remains very soft. UO not accurate. 05/17 Transferred to ICU for hi O2 requirements. Has left nostril epistaxis. On low dose pressors and lasix and insulin drip. Na 128, should improve with loop diuresis. Cr 1.2. 05/16 Creatinine stable and sodium trending up.On IV lasix,lytes wnl.Osorio out,having some problems with retention- nurses in contact with urology,doing bladder scans. 05/15/21 Doing fair. Osorio out. Has not voided yet. Na 131 with loop diuresis and improved. All labs and data reviewed. Excellent UO. Doing fair. Some flank pain and mild dyspnea. Na 127 and a little lower. BP better. Agreeable to cysto, but urology planning on conservative tx. Will start loop diuresis. OBJECTIVE Vitals: Vitals: 06/03/21 0300 06/03/21 0800 06/03/21 0815 06/03/21 0900 BP: 109/70 115/77 BP Location: Left arm Left arm Patient Position: Lying Lying Pulse: 82 95 87 Resp: 18 18 Temp: 36.3 ??C (97.3 ??F) 36.6 ??C (97.8 ??F) TempSrc: Oral Oral SpO2: 95% 93% 95% Weight: Height: Intake/Output Summary (Last 24 hours) at 06/03/2021 2018 Last data filed at 06/03/2021 1300 Gross per 24 hour Intake 480 ml Output 650 ml Net -170 ml REVIEW OF SYSTEMS Review of Systems Epistaxis, dyspnea. Constitutional: Negative. HENT: Negative. Eyes: Negative. Respiratory: Negative. Cardiovascular: Negative. Gastrointestinal: Negative. Genitourinary: Negative. Musculoskeletal: Negative. Skin: Negative. Allergic/Immunologic: Negative. Hematological: Negative. All other systems reviewed and are negative. PHYSICAL EXAM Physical Exam Constitutional: Appears well-developed. O2 on HENT: wnl Head: Normocephalic. Eyes: Pupils are equal, round, and reactive to light. Neck: Normal range of motion. Neck supple. Cardiovascular: Normal rate. Pulmonary/Chest: Effort normal and breath sounds normal. Abdominal: Soft. NT,active BS Musculoskeletal: Normal range of motion. Neurological: Alert, oriented. Skin: Skin is warm. Nursing note and vitals reviewed. MEDICATIONS No current facility-administered medications for this encounter. Current Outpatient Medications: ??? albuterol HFA (PROVENTIL HFA,VENTOLIN HFA,PROAIR HFA) 90 mcg/actuation inhaler, Inhale 8 puffs every 6 (six) hours as needed for wheezing, Disp: 1 each, Rfl: 0 ??? [START ON 06/04/2021] aspirin 81 mg enteric coated tablet, Take 1 tablet (81 mg total) by mouthdaily, Disp: 30 tablet, Rfl: 11 ??? carvediloL (COREG) 3.125 mg tablet, Take 1 tablet (3.125 mg total) by mouth 2 (two) times a daywith meals, Disp: 60 tablet, Rfl: 3 ??? cefdinir (OMNICEF) 300 mg capsule, Take 1 capsule (300 mg total) by mouth 2 (two) times a day for 3 days, Disp: 6 capsule, Rfl: 0 ??? [START ON 06/04/2021] clopidogreL (PLAVIX) 75 mg tablet, Take 1 tablet (75 mg total) by mouth daily, Disp: 30 tablet, Rfl: 3 ??? [START ON 06/04/2021] dapagliflozin (FARXIGA) 10 mg tablet, Take 1 tablet (10 mg total) by mouth daily, Disp: 30 tablet, Rfl: 3 ??? fenofibrate (TRIGLIDE) 160 mg tablet, take 1 tablet (160MG) by oral route every day, Disp: , Rfl: 0 ??? glimepiride (AMARYL) 2 mg tablet, take 1 tablet (2MG) by oral route every day, Disp: , Rfl: 0 ??? guaiFENesin (ROBITUSSIN) syrup 100 mg/5 mL, Take 10 mL (200 mg total) by mouth 4 (four) times aday as needed for cough, Disp: 120 mL, Rfl: 0 ??? insulin glargine (LANTUS) 100 unit/mL cartridge, inject by subcutaneous route as per insulin protocol, Disp: , Rfl: 0 ??? midodrine (PROAMATINE) 5 mg tablet, Take 3 tablets (15 mg total) by mouth 3 (three) times a day, Disp: 270 tablet, Rfl: 0 ??? pantoprazole DR (PROTONIX) 40 mg EC tablet, take 1 tablet (40MG) by oral route every day, Disp:, Rfl: 0 ??? phenazopyridine (PYRIDIUM) 100 mg tablet, , Disp: , Rfl: ??? pravastatin (PRAVACHOL) 80 mg tablet, take 1 tablet (80MG) by oral route every day, Disp: , Rfl: 0 ??? senna-docusate (PERICOLACE) 8.6-50 mg, Take 2 tablets by mouth every 12 (twelve) hours, Disp: 30 tablet, Rfl: 0 ??? sodium bicarbonate 650 mg tablet, Take 2 tablets (1,300 mg total) by mouth 2 (two) times a day,Disp: 120 tablet, Rfl: 0 Lab/Radiology/Diagnostic Review: Recent Results (from the past 24 hour(s)) POCT glucose Collection Time: 06/02/21 8:34 PM Result Value Ref Range Glucose, POC 193 70 - 199 mg/dL Phosphorus Collection Time: 06/03/21 3:04 AM Result Value Ref Range Phosphorus, pl 3.0 2.3 - 4.5 mg/dL Magnesium Collection Time: 06/03/21 3:04 AM Result Value Ref Range Magnesium 1.8 1.4 - 2.5 mg/dL CBC without differential Collection Time: 06/03/21 3:04 AM Result Value Ref Range WBC 13.2 (H) 3.8 - 9.9 K/cumm Hgb 9.2 (L) 13.0 - 17.5 g/dL Hct 29.2 (L) 38.9 - 50.3 % Plt 419 (H) 150 - 400 K/cumm MPV 11.5 9.1 - 12.3 fL RBC 3.10 (L) 4.30 - 5.80 M/cumm MCV 94.2 81.3 - 96.4 fL MCH 29.7 27.1 - 33.3 pg MCHC 31.5 (L) 32.3 - 35.7 g/dL RDW CV 15.0 (H) 11.1 - 14.9 % RDW SD 49.8 (H) 35.7 - 48.1 fL NRBC abs 0.00 0.00 - 0.01 K/cumm Basic metabolic panel Collection Time: 06/03/21 3:04 AM Result Value Ref Range Sodium 135 135 - 145 mmol/L Potassium, pl 3.7 3.3 - 4.9 mmol/L Chloride 105 97 - 110 mmol/L CO2 18 (L) 22 - 32 mmol/L Anion gap 12 2 - 15 mmol/L BUN 11 8 - 25 mg/dL Creatinine 0.42 (L) 0.80 - 1.30 mg/dL Glucose 140 70 - 199 mg/dL Calcium 8.5 8.5 - 10.3 mg/dL eGFR Collection Time: 06/03/21 3:04 AM Result Value Ref Range eGFR 124 mL/min/1.73 m2 POCT glucose Collection Time: 06/03/21 6:33 AM Result Value Ref Range Glucose, POC 211 (H) 70 - 199 mg/dL POCT glucose Collection Time: 06/03/21 12:21 PM Result Value Ref Range Glucose, POC 200 (H) 70 - 199 mg/dL XR Chest 1 View - Portable - in AM Result Date: 05/11/2021 Narrative: EXAMINATION: XR CHEST 1 VIEW HISTORY: The patient is a 60-year-old male who has had cardiac surgery. Comparison made with the previous study dated 05/10/2021. TECHNIQUE: AP portable view of the chest. FINDINGS: Lungs clear. Heart not enlarged. Aortic atherosclerosis. No failure. The right IJ [place] catheter has been retracted with its tip in the distal superior vena cava. Impression: IMPRESSION: No failure. Electronically signed by: Elvira Blackman M.D. XR Chest 1 View - Portable - in AM Result Date: 05/10/2021 Narrative: EXAMINATION: XR CHEST 1 VIEW DATE: 05/10/2021 2:40 AM COMPARISON: 05/09/2021 HISTORY: 60-year-old man cardiac surgery follow-up FINDINGS:Compared with study the previous day, significant improvement. There is cardiomegaly with postsurgical changes with continued and decreasing failure. Bibasilar atelectasis with left pleural fluid decreasing. No pneumothorax. [place] catheter remainsin place Impression: Decreasing failure, atelectasis and left effusion. Electronically signed by: Deandre Lomeli M.D. XR Chest 1 View - Portable - in AM Result Date: 05/09/2021 Narrative: EXAMINATION: XR CHEST 1 VIEW DATE: 05/09/2021 4:10 AM HISTORY: 60-year-old man cardiac surgery follow-up FINDINGS:Compared with study the previous day, significant improvement. There is cardiomegaly with postsurgical changes with continued but decreasing failure. Bibasilar atelectasis with left pleural fluid decreasing. No pneumothorax. [place] catheter remains in place Impression: Decreasing failure, atelectasis and left effusion. Electronically signed by: Deandre Lomeli M.D. XR Chest 1 View - Portable - in AM Result Date: 05/08/2021 Narrative: EXAMINATION: XR CHEST 1 VIEW DATE: 05/08/2021 4:15 AM HISTORY: 60-year-old man cardiac surgery follow-up FINDINGS:Compared with study the previous day, significant improvement. There is cardiomegaly with postsurgical changes with continued but decreasing failure. Bibasilar atelectasis with left pleural fluid. No pneumothorax. [place] catheter remains in place Impression: Decreasing failure. No pneumothorax. Electronically signed by: Deacon Cummings M.D. XR Chest 1 View - Portable - in AM Result Date: 05/07/2021 Narrative: EXAMINATION: XR CHEST 1 VIEW DATE: 05/07/2021 3:55 AM HISTORY: 60-year-old man follow-upcardiac surgery FINDINGS:Compared with study of the previous day, postsurgical changes in the heartand mediastinum with cardiomegaly are stable. [place] catheter remains in place. Left thoracostomy tube remains in place. No pneumothorax. Pulmonary vascular congestion with interstitial lung disease remain prominent. Impression: Persistent prominent interstitial lung disease with failure. Electronically signed by: Deacon Cummings M.D. XR Chest 1 View - Portable - in AM Result Date: 05/06/2021 Narrative: EXAMINATION: XR CHEST 1 VIEW DATE: 05/06/2021 4:05 AM INDICATION: Cardiac surgery. COMPARISON: 05/05/2021. FINDINGS: No pneumothorax or pleural effusion. Similar-appearing pulmonary vascular congestion and interstitial opacities most notable in the bilateral upper lobes consistent with pulmonary edema. Pulmonary catheter catheter, left thoracostomy tube, and mediastinal drain are appropriately position. Intra-aortic balloon pump is appropriately positioned. Interval removal of endotracheal tube. Impression: 1. Interval removal of endotracheal tube. Remaining tubes and lines are appropriately positioned. 2. Similar-appearing cardiomegaly, pulmonary vascular congestion, and prominent bilateralinterstitial markings suggestive of interstitial pulmonary edema. Electronically signed by: Richard Zhao II, D.O. XR Chest 1 View - Portable - in AM Result Date: 05/05/2021 Narrative: EXAMINATION: XR CHEST 1 VIEW DATE: 05/05/2021 4:15 AM HISTORY: 60-year-old man cardiac surgery follow-up FINDINGS:Compared with the study of the prior day, tubes and catheters remain satisfactorily positioned. Worsening pulmonary vascular congestive changes are seen. Cardiomegaly with postsurgical changes stable. No pneumothorax. Impression: Increasing failure. Electronically signed by: Deacon Cummings M.D. XR Chest 1 Vw Portable Result Date: 05/05/2021 Narrative: EXAMINATION: XR CHEST 1 VIEW DATE: 05/04/2021 8:40 PM HISTORY: 60-year-old man coronary artery bypass follow-up FINDINGS:Compared with the study of earlier the same day, postsurgical changes now evident within the heart and mediastinum with cardiomegaly. Interval placement of endotracheal tube, nasogastric tube, [place] catheter, left thoracostomy tube and mediastinal drain all in satisfactory position. No pneumothorax. Interstitial lung disease with mild pulmonary vascular congestive changes. Aortic balloon pump is no longer seen. Impression: Tube placements with postsurgical changes with cardiomegaly with interstitial lung disease and mild failure with no pneumothorax. Electronically signed by: Deacon Cummings M.D. XR Chest 1 Vw Portable Result Date: 05/04/2021 Narrative: EXAMINATION: XR CHEST 1 VIEW DATE: 05/04/2021 9:05 AM HISTORY: Coronary artery disease FINDINGS:Comparison is made with study of 2 days earlier. Cardiomegaly, COPD with interstitial lung disease stable. Mild failure. Aortic balloon pump stable in position at the proximal descending aorta. No pneumothorax. No new infiltrates. Impression: Stable appearance. COPD cardiomegaly, with mild failure suspected. Electronically signed by: Deacon Cummings M.D. XR Chest 1 Vw Portable Result Date: 05/02/2021 Narrative: EXAMINATION: XR CHEST 1 VIEW DATE: 05/02/2021 5:15 AM INDICATION: Intra-aortic balloon pump. COMPARISON: 05/01/2021. FINDINGS: Appropriately positioned intra-aortic balloon pump appears unchanged. No pneumothorax or pleural effusion. Mixed reticular and alveolar opacities demonstrated inall lung lobes appear most significant in the upper lobes and perihilar regions, unchanged. Impression: 1. Appropriately positioned intra-aortic balloon pump. 2. Similar mixed reticular and alveolar opacities most notable in the bilateral upper lobes and perihilar region. Electronically signed by: Richard Lopez II, D.O. XR Chest 1 Vw Portable Result Date: 05/02/2021 Narrative: EXAMINATION: XR CHEST 1 VIEW DATE: 05/01/2021 8:15 PM INDICATION: Hypoxia. COMPARISON: None. FINDINGS: No pneumothorax. No pleural effusion. Mixed reticular and alveolar opacities are demonstrated in all lung lobes but demonstrate an upper lobe and perihilar predominance. Findings may represent pulmonary edema on background of centrilobular emphysematous changes. Underlying infectious process not entirely excludable. Cardiac mediastinal silhouette is stable in appearance. No acute osseous abnormality. Impression: Mixed reticular and alveolar opacities are demonstrated in all lung lobes but demonstrate an upper lobe and perihilar predominance. Findings may represent pulmonary edema on background ofcentrilobular emphysematous changes. Electronically signed by: Richard Lopez II, D.O. Transthoracic Echo (TTE) Limited Result Date: 05/07/2021 Narrative: [place] [address] Limited Echocardiogram Report Patient Name: DEEPAK ALVARADO : 1960 StudyDate: 05/07/2021 12:16:52 PM Gender: M Tech: Location: [place] [address] Ref.Provider: RHINA GRANADOS Height(Cm): 175 BSA: 2.1 Weight(Kg): 91 Heart Rate: 82 BP: 127/44 Quality: Good Order Provider: Dr. Sutton Procedures: Echocardiographic Report: Limited transthoracic echocardiogram with 2D and M-Mode. Measurements: 2D/M Mode Measurement Value Normal Range LVIDd 2D 3.43 [ 4.20 -5.90 ] cm LVIDs 2D 2.59 [ 2.30 - 3.90 ] cm LVPWd 2D 1.01 [ 0.60 - 1.00 ] cm IVSd 2D 0.71 [ 0.60 - 0.90 ] cm Findings: Left Ventricle: Reduced left ventricular cavity size. Mild global left ventricular systolic dysfunction. Ejection fraction is measured at 42 %. These segments of the LV are hypokinetic: apical anterior segment. Pericardium: Trivial pericardial effusion. No echocardiographic evidence to suggest pericardial tamponade. Conclusions: Reduced left ventricular cavity size. Mild globalleft ventricular systolic dysfunction. Ejection fraction is measured at 42 %. These segments of theLV are hypokinetic: apical anterior segment. Trivial pericardial effusion. No echocardiographic evidence to suggest pericardial tamponade. Electronically Signed By: Gianni Francois MD, [facility] 2021-05-07 12:54:09 STAFF FORESTER Transthoracic Echo Complete W Doppler/CF Result Date: 05/02/2021 Narrative: [place] [address] Echocardiogram Report Patient Name: DEEPAK ALVARADO W : 1960 Study Date: 05/02/2021 8:50:02 AM Gender: M Tech: Location: [place] [address] Ref Provider: NALINI CLAYTONHeight(Cm): 175 BSA: 2.11 Weight(Kg): 92 Heart Rate: 89 BP: 102/52 Quality: Good Order Provider: NALINI CLAYTON PROCEDURES: Echocardiographic Report: Transthoracic echocardiogram with complete 2D, M-Mode, and color Doppler examination. INDICATIONS: Free Text. Measurements: 2D/M Mode Doppler Measurement Value Normal Range Measurement Value Normal Range EF Teich 2D 30.0 [ 55.0 - 70.0 ] percent CHRISTINA Vmax 2.04 [ 2.00 - 4.00 ] cm2 EF Mod 4C 42.2 [ 55.0 - 70.0 ] percent AV Mean PG 5 [ 2 - 4 ] mmHg LVIDd 2D 4.54 [ 4.20 - 5.90 ] cm AV Peak Ramesh 1.54 [ 1.00 - 1.70 ] m/s LVIDs 2D 3.91 [ 2.30 -3.90 ] cm AV VTI 26.93 cm LVPWd 2D 0.92 [ 0.60 - 1.00 ] cm LVOT Diam 2.20 [ 1.70 - 2.10 ] cm IVSd 2D 0.76 [ 0.60 - 0.90 ] cm LVOT Peak Ramesh 0.83 [ 0.70 - 1.10 ] m/s LA Dimension MM 5.08 [ 3.00 - 4.00 ] cm LVOT VTI 13.82 [ 20.00 - 30.00 ] cm AoR Diam MM 4.12 [ 2.60 - 3.70 ] cm MV E Peak Ramesh 0.85 [ 0.60 - 1.30 ] m/s LA Volume Index 20.83 [ 16.00 - 28.00 ] cc/m2 MV A Peak Ramesh 1.14 [ 1.00 - 1.20 ] m/sACS MM 1.91 [ 1.50 - 2.60 ] cm MV Mean PG 1 [ <= 5 ] mmHg MV PHT 43 [ 20 - 100 ] msec MVA 2.20MV Decel Time 137 [ 104 - 258 ] msec PV Peak Ramesh 1.10 [ 0.40 - 0.80 ] m/s TR Peak Ramesh 1.32 [ 1.00 - 2.80 ] m/s TR Peak PG 7 mmHg RVSP 16.93 [ 10.00 - 36.00 ] mmHg E' 0.06 E/E' 14.00 Measurement Value Normal Range Measurement Value Normal Range 2D/M Mode Doppler - FINDINGS: Atrial Septum: Normal atrial septum. Left Ventricle: Normal left ventricular size. Left ventricle not well visualized. There is severe hypokinesis of the mid anteroseptal, anterior, and apical mancilla. Normal left ventricularwall thickness. Impaired diastolic relaxation Grade I. Ejection fraction is visually estimated at 40 %. Left Atrium: The left atrium is normal in size. Right Ventricle: Normal right ventricular size.Normal right ventricular systolic function. Right Atrium: The right atrium is normal in size. Aortic Valve: Normal structure of the aortic valve. No evidence of hemodynamically significant aortic stenosis by Doppler. No aortic regurgitation. Mitral Valve: Normal structure of the mitral valve. Trivial regurgitation of the mitral valve. Pulmonic Valve: Pulmonic valve not well visualized. Trivial regurgitation in the pulmonic valve. Tricuspid Valve: Normal structure of the tricuspid valve. Trivialregurgitation in the tricuspid valve. Pericardium: Normal pericardium with no significant pericardial effusion. Aorta: Normal aortic root. IVC: Normal size and normal respiratory collapse consistent with normal right atrial pressure (<5 mmHg). CONCLUSIONS: Technically difficult study with limited views. Normal left ventricular size. Left ventricle not well visualized. There is severe hypokinesis of the mid anteroseptal, anterior, and apical mancilla. Normal left ventricular wall thickness. Impaired diastolic relaxation Grade I. Ejection fraction is visually estimated at 40 %. Normal right ventricular size. Normal right ventricular systolic function. Normal structure of the mitral valve. Triv ial regurgitation of the mitral valve. Normal structure of the tricuspid valve. Trivial regurgitation in the tricuspid valve. Electronically Signed By: Rylee Brito DO, FACJustyna, VILMA, FAISAL 2021-05-02 14:07:25 STAFF FORESTER CC: CC: CC: ASSESSMENT/PLAN Hyponatremia from SIADH and possibly from zaroxylyn use. Work up for hyponatremia ongoing. PO FR If in clinical fluid overload, can use tolvaptan. Renal fn is better. Na better with loop diuresis, use PRN. Daily BMP. Na 135 and acceptable. Midodrine for hypotension. DC lisinopril. NAGMA noted Continue oral bicarb, is helping normonatremia as well, DOSE NEEDS INCREASED. ?? Recent bladder tumor removal with hematuria. ?? -??Urology is following.H/H stable -Cysto vs conservative tx. -Voiding trial, hematuria has stopped. -Epistaxis Use nasal pillows. -CHF with decompensation Continue diuresis, diuretics stopped by audio director. RHC not done. Agree with Chandu. ?? Hypokalemia from diuresis. Replace PRN. ?? 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 COVID positive. Per protocol. On Remdisivir and Dex, course completed. Resp failure Acute on chronic, needs close monitoring, still on high flow oxygen. ?? Syncopal episode -(+) orthostasis -receiving albumin -IV lasix was discontinued. ??There is a 1x order for zaroxolyn 10mg this am- recommend holding fornow. ??D/w RN ?? Coronary artery disease -s/p CABG post STEMI -??underwent four-vessel bypass ??MAE to the LAD, sequential saphenous vein graft to diagonal and obtuse marginal and a vein graft to the PDA. -s/p??low dose dobutamine -paced rhythm ?? Moderate LV dysfunction -s/p IV??lasix??and??low dose??dobutamine -Beta blockers, ??[place] once off dobutamine-would hold off adding given syncopal episode this am -repeat ECHO 05/07 EF 42% (see above) ?Nonsustained ventricular tachycardia -no recurrence of VT -K 3.7, Mg??2.0. ??Supplement to keep K >/= 4.0, Mg >/= 2.0 ?Diabetes mellitus -?on lantus and SSI ?? COPD: ?? -on?O2 NC??4L (dried blood to L nare humidified o2 ordered) ?? Dyslipidemia -?Continue atorvastatin. ?PAD -?Stable ? Anemia -Hb??11.4 (10.5)??(8.6) -monitor ?? I can be reached at [phone] with any concerns. Thank you No att. providers found for the consult. Yves Weinberg MD [employer] [phone] F FORESTER * Shruthi Hu COTA - 06/03/2021 3:13 PM CST Occupational Therapy NO THERAPY OR OT CHARGES GIVEN THIS AFTERNOON D/T PATIENT TO BE D/C SOON. PATIENT STATES, WITH ALLDUE RESPECT, I DON'T WANT ANY THERAPY RIGHT NOW. I'M ALL PACKED AND DRESSED AND WANT TO GET OUT OF HERE SOON POSSIBLE. I'M WAITING ON THE PAPERWORK FROM THEM NOW. CAITIE Tinsley 06/03/21 3:18 PM F FORESTER * Joes Garner MD - 06/03/2021 2:46 PM CST Infectious Disease Deepak Alvarado Admit Date: 05/01/2021 LOS: 33 Days Subjective No new issues. Patient about the same ROS Denies n/v/d/f/chills/sob/cp. States feeling better Anti-infectives (From admission, onward) Start Dose/Rate Route Frequency Ordered Stop 06/03/21 0000 cefdinir (OMNICEF) 300 mg capsule 300 mg oral 2 times daily 06/03/21 1126 06/06/21 2359 05/30/21 1718 cefepime (MAXIPIME) 2,000 mg in sodium chloride 0.9% 100 mL IVPB 2,000 mg 200 mL/hr over 30 Minutes intravenous Every 12 hours 05/30/21 1008 05/30/21 0600 vancomycin (VANCOCIN) 1,750 mg in sodium chloride 0.9% 500 mL IVPB 1,750 mg 258.8 mL/hr over 120 Minutes intravenous Every 12 hours 05/29/21 1919 06/04/21 0559 05/17/216 al & mag hydroxide jyojyahimne-excdowrmquqpepe-egystkmsq-nystatin (MAGIC MOUTHWASH) suspension 1-1-1-1 20 mL swish & spit Every 4 hours PRN 05/17/212116 Data Vitals: 06/03/21 0300 06/03/21 0800 06/03/21 0815 06/03/21 0900 BP: 109/70 115/77 BP Location: Left arm Left arm Patient Position: Lying Lying Pulse: 82 95 87 Resp: 18 18 Temp: 36.3 ??C (97.3 ??F) 36.6 ??C (97.8 ??F) TempSrc: Oral Oral SpO2: 95% 93% 95% Weight: Height: Temp (24hrs), Av.5 ??C (97.7 ??F), Min:36.3 ??C (97.3 ??F), Max:36.7 ??C (98 ??F) Recent Labs Lab Units 06/03/21 0304 06/02/21 0537 06/01/21 1132 WBC K/cumm 13.2* 15.4* 16.3* HEMOGLOBIN g/dL 9.2* 9.8* 10.3* HEMATOCRIT % 29.2* 30.5* 33.0* PLATELETS K/cumm 419* 434* 508* Recent Labs Lab Units 06/03/21 0304 06/02/21 0537 06/02/21 0537 06/01/21 1132 06/01/21 1132 BUN SERUM mg/dL -- -- CREATININE mg/dL 0.42* < > 0.52* < > 0.47* < > = values in this interval not displayed. Scheduled Meds:aspirin, 81 mg, oral, Daily atorvastatin, 80 mg, oral, Nightly carvediloL, 3.125 mg, oral, BID with meals (bkfst, dinner) cefepime, 2,000 mg, intravenous, Q12H clopidogreL, 75 mg, oral, Daily dapagliflozin, 10 mg, oral, Daily enoxaparin, 40 mg, subcutaneous, Daily-2100 insulin lispro, 0-10 Units, subcutaneous, TID with meals insulin lispro, 0-5 Units, subcutaneous, Nightly midodrine, 15 mg, oral, TID pantoprazole DR, 40 mg, oral, Daily polyethylene glycol, 17 g, oral, Q12H QUEtiapine, 50 mg, oral, Nightly senna-docusate, 2 tablet, oral, Q12H sodium bicarbonate, 1,300 mg, oral, BID sodium chloride 0.9%, 0.5-20 mL, intra-catheter, Q8H LEAH vancomycin, 1,750 mg, intravenous, Q12H Continuous Infusions: PRN Meds:.??? acetaminophen ? ? al & mag hydroxide eyvltlkblnu-txzkdzadshmddvo-gxxoivtvt-nystatin ??? albuterol HFA ??? dextrose OR dextrose ??? dextrose OR [DISCONTINUED] dextrose ??? glucagon ??? guaiFENesin ??? ondansetron Exam General appearance: alert, cooperative, no distress HEENT: (-)icterus, Oropharnyx is normal, NCAT Neck: No palpable LN Lungs: Course breath sounds and symmetric; minimal to moderate respiratory effort Heart: regular rhythm, normal S1 and S2, no m/r/g Abdomen: soft without mass, non-tender, +bowel sounds, no HSM Skin: (-)new rashes, no ulcerations MSK: no gross deformities, FROM Vascular: no Edema, pulses present bilaterally Neuro: No focal deficits Psych: Appropriate mood and affect ?? Cultures 05/02 COVID 19- 05/19 COVID 19 positive 05/26 blood cultures negative ?? 05/05 tracheal aspirate culture with yeast 05/26 pneumonia sputum culture PCR with Moraxella/Haemophilus/MRSA/rhino virus/enterovirus ?? Assessment: 1. Acute respiratory failure 2. COVID-19 infection 3. Status post CABG 4. Hematuria 5. Pneumonia 6. Rhino virus ?? Plan: 1. Continue vanc and cefepime until 06/05. Can dc on PO atbx if discharged earlier 2. Continue treatment for COVID per attending 3. Rhino virus may have been present on admission 4. Continue monitor labs and vs trends. Follow WBC 5. Continue supportive care Jose Garner MD [place] Infectious Disease Call [phone] 06/03/2021 2:46 PM F FORESTER * Roya Marquez PTA - 06/03/2021 11:38 AM CST Physical Therapy Patient refused therapy secondary to being discharged today. Asked if he would like to ambulate before he left and he states no , Reviewed sternal precautions and energy conservation w/patient. Cosigned by Hammad Camara, PT at 06/03/2021 4:03 PM STAFF FORESTER F FORESTER F FORESTER * Lc Perez MD - 06/03/2021 10:34 AM CST Pulmonary Daily Progress Chief complaint/reason for consult: Respiratory failure. Interval History: Patient wean down to room air. Afebrile no other significant distress. COVID positive 05/19/21 Presenting History: 60 yo man w COPD, DM, CAD/stents admitted 05/01/21 with chest pain. Had recent hematuria as well. Workup revealed an acute MT. Cath showed multi-vessel CAD. Had balloon pump placed. CABG x 4 done on 05/04/21. He was continued on mechanical ventilation and self extubated this AM (05/05/21). He is on multiple pressors. Sedated with precedex. Some tachypnea. A balloon pump is in place. Current tobacco use. COPD listed as prior diagnosis. No inhalers on home med list. Allergies: Allergies Allergen Reactions ? ? Metformin Nausea & Vomiting ??? Metoclopramide Medications: Scheduled Meds:albuterol HFA, 8 puff, inhalation, Q6H While awake (RT) aspirin, 81 mg, oral, Daily atorvastatin, 80 mg, oral, Nightly carvediloL, 3.125 mg, oral, BID with meals (bkfst, dinner) cefepime, 2,000 mg, intravenous, Q12H clopidogreL, 75 mg, oral, Daily dapagliflozin, 10 mg, oral, Daily enoxaparin, 40 mg, subcutaneous, Daily-2100 insulin lispro, 0-10 Units, subcutaneous, TID with meals insulin lispro, 0-5 Units, subcutaneous, Nightly magnesium sulfate, 2 g, intravenous, Once midodrine, 15 mg, oral, TID pantoprazole DR, 40 mg, oral, Daily polyethylene glycol, 17 g, oral, Q12H QUEtiapine, 50 mg, oral, Nightly senna-docusate, 2 tablet, oral, Q12H sodium bicarbonate, 1,300 mg, oral, BID sodium chloride 0.9%, 0.5-20 mL, intra-catheter, Q8H LEAH vancomycin, 1,750 mg, intravenous, Q12H Continuous Infusions: PRN Meds:.??? acetaminophen ? ? al & mag hydroxide jpblyiygirb-pmhkxgjqspbimgf-uqduxciov-nystatin ??? albuterol ??? dextrose OR dextrose ??? dextrose OR [DISCONTINUED] dextrose ??? glucagon ??? guaiFENesin ??? ondansetron ROS Above review of system reviewed on 06/03/2021 Vitals: Vitals: 06/02/21 2300 06/03/21 0300 06/03/21 0815 06/03/21 0900 BP: 148/82 109/70 115/77 BP Location: Left arm Left arm Left arm Patient Position: Lying Lying Lying Pulse: 75 82 87 Resp: 18 18 18 Temp: 36.7 ??C (98 ??F) 36.3 ??C (97.3 ??F) 36.6 ??C (97.8 ??F) TempSrc: Oral Oral Oral SpO2: 98% 95% 93% 95% Weight: Height: Temp (24hrs), Av.5 ??C (97.7 ??F), Min:36.3 ??C (97.3 ??F), Max:36.7 ??C (98 ??F) Intake/Output Summary (Last 24 hours) at 06/03/2021 1035 Last data filed at 06/02/2021 1758 Gross per 24 hour Intake 1117 ml Output 1250 ml Net -133 ml Physical Exam Constitutional: General: He is not in acute distress. Appearance: He is well-developed. HENT: Head: Normocephalic and atraumatic. Eyes: General: No scleral icterus. Conjunctiva/sclera: Conjunctivae normal. Neck: Thyroid: No thyromegaly. Cardiovascular: Rate and Rhythm: Normal rate and regular rhythm. Heart sounds: No murmur heard. Pulmonary: Effort: Pulmonary effort is normal. No respiratory distress. Breath sounds: Normal breath sounds. No wheezing, rhonchi or rales. Chest: Comments: Sternotomy incision Abdominal: General: Bowel sounds are normal. Palpations: Abdomen is soft. Skin: General: Skin is warm and dry. Neurological: Mental Status: He is alert. Lab/Radiology/Diagnostic Review: Labs: Recent Labs Lab Units 06/03/21 0304 06/02/21 0537 06/01/21 1132 WBC K/cumm 13.2* 15.4* 16.3* HEMOGLOBIN g/dL 9.2* 9.8* 10.3* HEMATOCRIT % 29.2* 30.5* 33.0* PLATELETS K/cumm 419* 434* 508* Recent Labs Lab Units 06/03/21 0633 06/03/21 0304 06/02/21 2034 06/02/21 0646 06/02/21 0537 06/01/21 1145 06/01/21 1132 SODIUM mmol/L -- 135 -- -- 135 -- 135 POTASSIUM PLASMA mmol/L -- 3.7 -- -- 4.2 -- 3.8 CHLORIDE mmol/L -- 105 -- -- 104 -- 101 CO2 mmol/L -- 18* -- -- 21* -- 20* ANIONGAP mmol/L -- 12 -- -- 10 -- 14 GLUCOSE mg/dL -- 140 -- -- 139 < > 144 POC GLUCOSE MONITOR mg/dL 211* -- 193 < > -- < > -- BUN SERUM mg/dL -- 11 -- -- 13 -- 13 CREATININE mg/dL -- 0.42* -- -- 0.52* -- 0.47* CALCIUM mg/dL -- 8.5 -- -- 8.7 -- 8.7 < > = values in this interval not displayed. Respiratory pathogen pcr 05/26: + rhinovirus Legionella Ag: negative Pneumococcal Ag: negative Imaging: CXR 05/31: CM, increased PVC, similar bilateral infiltrates CT chest 05/19/21: b gg inf, severe emphysema CT chest 05/25/21: b inf, emphysema, no PE Other diagnostic tests: I have personally reviewed above laboratory findings, chest imaging, and diagnostic tests 06/03/2021 Assessment and Plan: Acute respiratory failure Acute MT w CAD s/p CABG x 4 on 05/04/21, past hx multiple stents Cardiogenic shock, resolved Cardiomyopathy EF 40% V fib COPD: severe emphysematous changes on CT Anemia Hematuria s/p cystoscopy/fulguration COVID 19, diagnosed 05/19/21, resp status began worsening 05/15/21 Possible bacterial pneumonia Rhinovirus ?? Recs: Oxygen support, adjust as needed Check ambulatory needs when off iv antibiotics Dexamethasone: completed Baricitinib: stopped 05/26 Remdesivir: completed On cefepime and vancomycin as per ID Incentive spirometry Scheduled albuterol Increase activity as tolerated perspective F FORESTER * Nalini Clayton MD - 06/03/2021 10:04 AM CST [facility] - Cardiology [facility] Progress Note Admit Date: 05/01/2021 5:20 PM @HDAYS@ PCP: Unknown, Notinfile Patient seen and examined Chart , telemtry reviewed Symptoms Patient denies chest pain, dyspnea, palpitations, sweating or syncope.Is off O2 Data Vitals: 06/02/21 2300 06/03/21 0300 06/03/21 0815 06/03/21 0900 BP: 148/82 109/70 115/77 BP Location: Left arm Left arm Left arm Patient Position: Lying Lying Lying Pulse: 75 82 87 Resp: 18 18 18 Temp: 36.7 ??C (98 ??F) 36.3 ??C (97.3 ??F) 36.6 ??C (97.8 ??F) TempSrc: Oral Oral Oral SpO2: 98% 95% 93% 95% Weight: Height: Intake/Output Summary (Last 24 hours) at 06/03/2021 1004 Last data filed at 06/02/2021 1758 Gross per 24 hour Intake 1117 ml Output 1250 ml Net -133 ml Lab Results Component Value Date WBC 13.2 (H) 06/03/2021 WBC 15.4 (H) 06/02/2021 WBC 16.3 (H) 06/01/2021 HGB 9.2 (L) 06/03/2021 HGB 9.8 (L) 06/02/2021 HGB 10.3 (L) 06/01/2021 HCT 29.2 (L) 06/03/2021 HCT 30.5 (L) 06/02/2021 HCT 33.0 (L) 06/01/2021 Lab Results Component Value Date SODIUM 135 06/03/2021 SODIUM 135 06/02/2021 SODIUM 135 06/01/2021 POTASSIUM 3.7 06/03/2021 POTASSIUM 4.2 06/02/2021 POTASSIUM 3.8 06/01/2021 CHLORIDE 105 06/03/2021 CHLORIDE 104 06/02/2021 CHLORIDE 101 06/01/2021 CO2 18 (L) 06/03/2021 CO2 21 (L) 06/02/2021 CO2 20 (L) 06/01/2021 CREATININE 0.42 (L) 06/03/2021 CREATININE 0.52 (L) 06/02/2021 CREATININE 0.47 (L) 06/01/2021 GLUCOSE 211 (H) 06/03/2021 GLUCOSE 140 06/03/2021 GLUCOSE 193 06/02/2021 GLUCOSE 259 (H) 06/02/2021 GLUCOSE 139 06/02/2021 GLUCOSE 144 06/01/2021 CALCIUM 8.5 06/03/2021 CALCIUM 8.7 06/02/2021 CALCIUM 8.7 06/01/2021 No results found for: PTT No results found for: PT No results found for: INR No results found for: BNP No components found for: TROPONIN No results found for: CHOL, TRIG, HDL, LDLCALC No results found for: ALBUMIN, ALKPHOS, ALT, AST No components found for: MAGMGDL No results found for: TSH No results found for: T3FREE No results found for: [id number] Meds MEDICATIONS FOR CURRENT ENCOUNTER: SCHEDULED MEDICATIONS: Scheduled Medications Medication Dose Route Frequency ??? albuterol HFA (PROVENTIL HFA,VENTOLIN HFA,PROAIR HFA) 90 mcg/actuation inhaler 8 puff 8 puff inhalation Q6H While awake (RT) ??? aspirin enteric coated tablet 81 mg 81 mg oral Daily ??? atorvastatin (LIPITOR) tablet 80 mg 80 mg oral Nightly ??? carvediloL (COREG) tablet 3.125 mg 3.125 mg oral BID with meals (bkfst, dinner) ??? cefepime (MAXIPIME) 2,000 mg in sodium chloride 0.9% 100 mL IVPB 2,000 mg intravenous Q12H ??? clopidogreL (PLAVIX) tablet 75 mg 75 mg oral Daily ??? dapagliflozin (FARXIGA) tablet 10 mg 10 mg oral Daily ??? enoxaparin (LOVENOX) syringe 40 mg 40 mg subcutaneous Daily-2100 ??? insulin lispro (HumaLOG, ADMELOG) 100 unit/mL injection 0-10 Units 0-10 Units subcutaneous TID with meals ??? insulin lispro (HumaLOG, ADMELOG) 100 unit/mL injection 0-5 Units 0-5 Units subcutaneous Nightly ??? midodrine (PROAMATINE) tablet 15 mg 15 mg oral TID ??? pantoprazole DR (PROTONIX) extended release tablet 40 mg 40 mg oral Daily ??? polyethylene glycol (MIRALAX) packet 17 g 17 g oral Q12H ??? QUEtiapine (SEROquel) tablet 50 mg 50 mg oral Nightly ??? senna-docusate (PERICOLACE) 8.6-50 mg per tablet 2 tablet 2 tablet oral Q12H ??? sodium bicarbonate tablet 1,300 mg 1,300 mg oral BID ??? sodium chloride 0.9% flush 0.5-20 mL 0.5-20 mL intra-catheter Q8H LEAH ??? vancomycin (VANCOCIN) 1,750 mg in sodium chloride 0.9% 500 mL IVPB 1,750 mg intravenous Q12H ?? CONTINUOUS MEDICATIONS: Continuous Medications Medication Dose Last Rate ? PRN MEDICATIONS: PRN Medications Medication Dose Route Frequency Last Admin ??? acetaminophen (TYLENOL) tablet 650 mg 650 mg oral Q6H PRN 650 mg at 05/29/21 1429 ? ? al & mag hydroxide nvhwirqngou-kgfiasxietsjlbq-npmqqokfq-nystatin (MAGIC MOUTHWASH) suspension 1-1-1-1 20 mL swish & spit Q4H PRN ??? albuterol 2.5 mg /3 mL (0.083 %) nebulizer solution 2.5 mg 2.5 mg nebulization Q4H PRN (RT) 2.5mg at 05/17/21 0224 ??? dextrose oral liquid liquid 15 g 15 g oral Q15 Min PRN Or ??? dextrose (D10W) 10% bolus 250 mL 250 mL intravenous Q15 Min PRN ??? dextrose oral liquid liquid 15 g 15 g oral Q15 Min PRN ??? glucagon injection 1 mg 1 mg intramuscular Q30 Min PRN ??? guaiFENesin (ROBITUSSIN) 20 mg/mL oral liquid 200 mg 200 mg oral QID PRN 200 mg at 05/25/21 8343 ??? ondansetron (ZOFRAN) injection 4 mg 4 mg intravenous Q6H PRN Allergies Allergen Reactions ? ? Metformin Nausea & Vomiting ??? Metoclopramide Review of Systems: All systems were reviewed. Pertinent positives are mentioned above. Exam Not done Assessment /Plan CAD/STEMI s/p CABG - Cardiac cath 05/01 with 40% distal LM, 100% prox LAD, 90% prox Cx, 50% prox and distal RCA - Echo 05/02 EF??37% -VF (brief) on 05/03 treated with Amiodarone -CABG x4 05/04/2021 -continue ASA/Statin -low dose Coreg??resumed monitoring closely, occasional low B.P readings ?? COVID 19 - dx 05/19/21 - Remdesivir and dexamethasone -on??n/c??O2??at 2L -Pulmonology following ?? Acute Respiratory failure - Lung infiltrates per CXR on 05/19, completed Abx, COVID + - transferred to ICU 05/17 for increasing oxygen requirments - CT PE negative? Hypomagnesemia -low at 1.8 -will replace today ?? Hematuria -resolved -cysto 05/14 ?? Urinary retention -urology following ?? S/p Cardiogenic shock + Hypotension -off pressors -midodrine TID -BP improved ?? HLD -stable??on Statin ?? Nalini Clayton MD [facility] * Deirdre Hoskins RRT - 06/03/2021 9:58 AM CST Patient did not walk far at all as he said he was light headed when standing up. We did walk in place as well. SPO2 did not drop below 90% with exertion on room air. Patient eager to go home. Recommendation: No oxygen needed for discharge. 06/03/21 0940 Resting Information Resting HR. 83 bpm Resting SPO2 96 % Oxygen Setting Room Air Delivery Device N/A Ambulation Trials to Assess Desaturation to 88% Activity 1: Ambulated (feet) 25 feet Oxygen Setting #1 RA SPO2 (%) #1 93 % Activity 2: Ambulated (feet) 50 feet Oxygen Setting #2 RA SPO2 (%) #2 91 % Activity 3: Ambulated (feet) 100 feet Oxygen Setting #3 RA SPO2 (%) #3 90 % Post Ambulation Assessment HR Post Assessment 93 bpm (SPO2 94% on RA post walk) RR Post Assessment 20 breaths/m Post Assessment Recommendation No supplemental O2 needed at this time. SPO2 did not drop below 90% with exertion. $ Pulmonary Stress Test Pulm Stress Test F FORESTER * Angelo Vance MD - 06/02/2021 9:27 PM CST Infectious Disease Deepak Adair Lazarus Admit Date: 05/01/2021 LOS: 32 Days Subjective No new issues. Patient about the same ROS Denies n/v/d/f/chills/sob/cp. States feeling better Anti-infectives (From admission, onward) Start Dose/Rate Route Frequency Ordered Stop 05/30/21 1718 cefepime (MAXIPIME) 2,000 mg in sodium chloride 0.9% 100 mL IVPB 2,000 mg 200 mL/hr over 30 Minutes intravenous Every 12 hours 05/30/21 1008 05/30/21 0600 vancomycin (VANCOCIN) 1,750 mg in sodium chloride 0.9% 500 mL IVPB 1,750 mg 258.8 mL/hr over 120 Minutes intravenous Every 12 hours 05/29/21 1919 06/04/21 0559 05/17/212115 al & mag hydroxide zdswxuzvzmn-abgwnaguxwmrnmy-wvghpmryk-nystatin (MAGIC MOUTHWASH) suspension 1-1-1-1 20 mL swish & spit Every 4 hours PRN 05/17/212116 Data Vitals: 06/02/21 1500 06/02/21 1600 06/02/21 1800 06/02/21 1900 BP: 111/75 (!) 84/49 BP Location: Left arm Left arm Patient Position: Lying Pulse: 86 98 Resp: 18 18 Temp: 36.6 ??C (97.9 ??F) 36.5 ??C (97.7 ??F) TempSrc: Oral Oral SpO2: 91% 92% 91% 94% Weight: Height: Temp (24hrs), Av.6 ??C (97.9 ??F), Min:36.4 ??C (97.5 ??F), Max:36.8 ??C (98.2 ??F) Recent Labs Lab Units 06/02/21 0537 06/01/21 1132 05/31/21 0539 WBC K/cumm 15.4* 16.3* 18.4* HEMOGLOBIN g/dL 9.8* 10.3* 10.4* HEMATOCRIT % 30.5* 33.0* 32.1* PLATELETS K/cumm 434* 508* 470* Recent Labs Lab Units 06/02/21 0537 06/01/21 1132 06/01/21 1132 05/31/21 0539 05/31/21 0539 BUN SERUM mg/dL -- -- 16 CREATININE mg/dL 0.52* < > 0.47* < > 0.46* < > = values in this interval not displayed. Scheduled Meds:albuterol HFA, 8 puff, inhalation, Q6H While awake (RT) aspirin, 81 mg, oral, Daily atorvastatin, 80 mg, oral, Nightly carvediloL, 3.125 mg, oral, BID with meals (bkfst, dinner) cefepime, 2,000 mg, intravenous, Q12H clopidogreL, 75 mg, oral, Daily dapagliflozin, 10 mg, oral, Daily enoxaparin, 40 mg, subcutaneous, Daily-2100 insulin lispro, 0-10 Units, subcutaneous, TID with meals insulin lispro, 0-5 Units, subcutaneous, Nightly midodrine, 15 mg, oral, TID pantoprazole DR, 40 mg, oral, Daily polyethylene glycol, 17 g, oral, Q12H QUEtiapine, 50 mg, oral, Nightly senna-docusate, 2 tablet, oral, Q12H sodium bicarbonate, 1,300 mg, oral, BID sodium chloride 0.9%, 0.5-20 mL, intra-catheter, Q8H LEAH vancomycin, 1,750 mg, intravenous, Q12H Continuous Infusions: PRN Meds:.??? acetaminophen ? ? al & mag hydroxide neenwguvtpi-qdxqbxghnoshrjs-afledhfuk-nystatin ??? albuterol ??? dextrose OR dextrose ??? dextrose OR [DISCONTINUED] dextrose ??? glucagon ??? guaiFENesin ??? ondansetron Exam General appearance: alert, cooperative, no distress HEENT: (-)icterus, Oropharnyx is normal, NCAT Neck: No palpable LN Lungs: Course breath sounds and symmetric; minimal to moderate respiratory effort Heart: regular rhythm, normal S1 and S2, no m/r/g Abdomen: soft without mass, non-tender, +bowel sounds, no HSM Skin: (-)new rashes, no ulcerations MSK: no gross deformities, FROM Vascular: no Edema, pulses present bilaterally Neuro: No focal deficits Psych: Appropriate mood and affect ?? Cultures 05/02 COVID 19- 05/19 COVID 19 positive 05/26 blood cultures negative ?? 05/05 tracheal aspirate culture with yeast 05/26 pneumonia sputum culture PCR with Moraxella/Haemophilus/MRSA/rhino virus/enterovirus ?? Assessment: 1. Acute respiratory failure 2. COVID-19 infection 3. Status post CABG 4. Hematuria 5. Pneumonia 6. Rhino virus ?? Plan: 1. Continue vanc and cefepime until 06/05. Can dc on PO atbx if discharged earlier 2. Continue treatment for COVID per attending 3. Rhino virus may have been present on admission 4. Continue monitor labs and vs trends. Follow WBC 5. Continue supportive care Angelo Vance MD [place] Infectious Disease Call [phone] 06/02/2021 9:27 PM F FORESTER * Yves Weinberg MD - 06/02/2021 8:49 PM CST Nephrology Progress Note [facility] SUBJECTIVE 06/02/21 Cough and dyspnea better. Good UO. Weak. Na 135, cr nl. Mild NAGMA. 06/01 Doing a little better. All labs reviewed. Stable renal fn and lytes. 05/31 Na 132, Cr normal. To be transferred to today. Good UO. All labs reviewed. Bicarb better. Very deconditioned. Agreeable to SNF. 05/29/21 Remains frail. BP soft, on hi dose midodrine. Still requiring sig oxygen. Very deconditioned. May need SNF vs LTAC. Na 130, bicarb 18. Cr normal. 05/28/21 Appears better. All labs and data reviewed. Na and CR stable. Started on lisinopril. Will DC. On high dose midodrine. O2 sats still not Acceptable. Na 135, bicarb 17. Cr normal. Mg low, being replaced. 05/27/21 Doing about the same. Has completed tx for COVID. Still in ICU. All labs reviewed. 05/26/21 Doing fair. Appears comfortable. Some dyspnea. All labs and data reviewed. Na and Cr stable. Good UO. 05/25/21 Doing fair. All labs reviewed. Renal fn nl. Na 132. Overall slowly improving. 05/24/21 Pt seen/examined. All labs and data reviewed. Getting IV lasix PRN. Na 133, lytes and renal fn stable. 05/23/21 Pt seen/examined. All labs reviewed. Receiving K phos. BP soft, on hi dose midodrine. Na 132. I gave lasix 40 iv times 1 for falling UO. Remains in ICU. 05/22/21 Pt seen/examined. All labs and data reviewed. Na 134, Cr 0.62. Dyspnea better. Eager to go home but remains in ICU. Stable renal fn and lytes. OK for loop diuretics PRN. Avoid thiazides. 05/21/21 Pt seen/examined. All labs reviewed. Off lasix drip. Still dyspneic. Renal fn better. Na 135. 05/20/21 Pt seen/examined. All labs and data reviewed. COVID pos. On Dex and remdisivir. On lasix drip. Na 130, Cr 1.44. 05/19 Cr 1.41 Na 130. Started on Corlanor. Appears stable. BP remains very soft. UO not accurate. 05/17 Transferred to ICU for hi O2 requirements. Has left nostril epistaxis. On low dose pressors and lasix and insulin drip. Na 128, should improve with loop diuresis. Cr 1.2. 05/16 Creatinine stable and sodium trending up.On IV lasix,lytes wnl.Osorio out,having some problems with retention- nurses in contact with urology,doing bladder scans. 05/15/21 Doing fair. Osorio out. Has not voided yet. Na 131 with loop diuresis and improved. All labs and data reviewed. Excellent UO. Doing fair. Some flank pain and mild dyspnea. Na 127 and a little lower. BP better. Agreeable to cysto, but urology planning on conservative tx. Will start loop diuresis. OBJECTIVE Vitals: Vitals: 06/02/21 1400 06/02/21 1500 06/02/21 1600 06/02/21 1800 BP: 111/75 BP Location: Left arm Patient Position: Pulse: 86 Resp: 18 Temp: 36.6 ??C (97.9 ??F) TempSrc: Oral SpO2: 98% 91% 92% 91% Weight: Height: Intake/Output Summary (Last 24 hours) at 06/02/20212048 Last data filed at 06/02/2021 1758 Gross per 24 hour Intake 1367 ml Output 2250 ml Net -883 ml REVIEW OF SYSTEMS Review of Systems Epistaxis, dyspnea. Constitutional: Negative. HENT: Negative. Eyes: Negative. Respiratory: Negative. Cardiovascular: Negative. Gastrointestinal: Negative. Genitourinary: Negative. Musculoskeletal: Negative. Skin: Negative. Allergic/Immunologic: Negative. Hematological: Negative. All other systems reviewed and are negative. PHYSICAL EXAM Physical Exam Constitutional: Appears well-developed. O2 on HENT: wnl Head: Normocephalic. Eyes: Pupils are equal, round, and reactive to light. Neck: Normal range of motion. Neck supple. Cardiovascular: Normal rate. Pulmonary/Chest: Effort normal and breath sounds normal. Abdominal: Soft. NT,active BS Musculoskeletal: Normal range of motion. Neurological: Alert, oriented. Skin: Skin is warm. Nursing note and vitals reviewed. MEDICATIONS Current Facility-Administered Medications: ??? acetaminophen (TYLENOL) tablet 650 mg, 650 mg, oral, Q6H PRN, Silviano Huddleston NP, 650 mg at 05/29/21 1429 ? ? al & mag hydroxide uietgvpywgc-ggehwhvjylhiiwx-tmyleurnm-nystatin (MAGIC MOUTHWASH) suspension 1-1-1-1, 20 mL, swish & spit, Q4H PRN, Silviano Huddleston NP ??? albuterol 2.5 mg /3 mL (0.083 %) nebulizer solution 2.5 mg, 2.5 mg, nebulization, Q4H PRN (RT),Silviano Huddleston NP, 2.5 mg at 05/17/21 0224 ??? albuterol HFA (PROVENTIL HFA,VENTOLIN HFA,PROAIR HFA) 90 mcg/actuation inhaler 8 puff, 8 puff, inhalation, Q6H While awake (RT), Ralf Tomlinson MD ??? aspirin enteric coated tablet 81 mg, 81 mg, oral, Daily, Silviano Huddleston NP, 81 mg at 06/02/21 0907 ??? atorvastatin (LIPITOR) tablet 80 mg, 80 mg, oral, Nightly, Silviano Huddleston NP, 80 mg at 06/02/212034 ??? carvediloL (COREG) tablet 3.125 mg, 3.125 mg, oral, BID with meals (bkfst, dinner), Silviano Huddleston NP, 3.125 mg at 06/02/21 1758 ??? cefepime (MAXIPIME) 2,000 mg in sodium chloride 0.9% 100 mL IVPB, 2,000 mg, intravenous, Q12H, Silviano Huddleston NP, Last Rate: 200 mL/hr at 06/02/21 1707, 2,000 mg at 06/02/21 1707 ??? clopidogreL (PLAVIX) tablet 75 mg, 75 mg, oral, Daily, Silviano Huddleston NP, 75 mg at 06/02/21 0907 ??? dapagliflozin (FARXIGA) tablet 10 mg, 10 mg, oral, Daily, Silviano Huddleston NP, 10 mg at 06/02/21 1346 ??? dextrose oral liquid liquid 15 g, 15 g, oral, Q15 Min PRN OR dextrose (D10W) 10% bolus 250 mL, 250 mL, intravenous, Q15 Min PRN, Sivliano Huddleston NP ??? dextrose oral liquid liquid 15 g, 15 g, oral, Q15 Min PRN OR [DISCONTINUED] dextrose (D10W)10% bolus 250 mL, 250 mL, intravenous, Q15 Min PRN, Anibal Lara MD ??? enoxaparin (LOVENOX) syringe 40 mg, 40 mg, subcutaneous, Daily-2100, Silviano Huddleston NP, 40 mg at 06/01/212111 ??? glucagon injection 1 mg, 1 mg, intramuscular, Q30 Min PRN, Silviano Huddleston NP ??? guaiFENesin (ROBITUSSIN) 20 mg/mL oral liquid 200 mg, 200 mg, oral, QID PRN, Silviano Huddleston NP, 200 mg at 05/25/21 2353 ??? insulin lispro (HumaLOG, ADMELOG) 100 unit/mL injection 0-10 Units, 0-10 Units, subcutaneous, TID with meals, Silviano Huddleston NP, 6 Units at 06/02/21 1707 ??? insulin lispro (HumaLOG, ADMELOG) 100 unit/mL injection 0-5 Units, 0-5 Units, subcutaneous, Nightly, Silviano Huddleston NP, 1 Units at 06/02/212043 ??? midodrine (PROAMATINE) tablet 15 mg, 15 mg, oral, TID, Silviano Huddleston NP, 15 mg at 06/02/21 1509 ??? ondansetron (ZOFRAN) injection 4 mg, 4 mg, intravenous, Q6H PRN, Silviano Huddleston NP ??? pantoprazole DR (PROTONIX) extended release tablet 40 mg, 40 mg, oral, Daily, Silviano Huddleston NP, 40 mg at 06/02/21906 ??? polyethylene glycol (MIRALAX) packet 17 g, 17 g, oral, Q12H, Silviano Huddleston NP, 17 g at 06/02/21907 ??? QUEtiapine (SEROquel) tablet 50 mg, 50 mg, oral, Nightly, Silviano Huddleston NP, 50 mg at 06/02/212034 ??? senna-docusate (PERICOLACE) 8.6-50 mg per tablet 2 tablet, 2 tablet, oral, Q12H, Silviano Huddleston NP, 2 tablet at 06/02/21906 ??? sodium bicarbonate tablet 1,300 mg, 1,300 mg, oral, BID, Silviano Huddleston NP, 1,300 mg at 06/02/212034 ??? sodium chloride 0.9% flush 0.5-20 mL, 0.5-20 mL, intra-catheter, Q8H LEAH, Silviano Huddleston NP, 10 mL at 06/02/212037 ??? vancomycin (VANCOCIN) 1,750 mg in sodium chloride 0.9% 500 mL IVPB, 1,750 mg, intravenous, Q12H, Silviano Huddleston NP, Last Rate: 258.8 mL/hr at 06/02/211757, 1,750 mg at 06/02/211757 Lab/Radiology/Diagnostic Review: Recent Results (from the past 24 hour(s)) POCT glucose Collection Time: 06/01/21 9:18 PM Result Value Ref Range Glucose, POC 166 70 - 199 mg/dL POCT glucose Collection Time: 06/02/21 2:07 AM Result Value Ref Range Glucose, POC 120 70 - 199 mg/dL Phosphorus Collection Time: 06/02/21 5:37 AM Result Value Ref Range Phosphorus, pl 2.7 2.3 - 4.5 mg/dL Magnesium Collection Time: 06/02/21 5:37 AM Result Value Ref Range Magnesium 1.6 1.4 - 2.5 mg/dL CBC without differential Collection Time: 06/02/21 5:37 AM Result Value Ref Range WBC 15.4 (H) 3.8 - 9.9 K/cumm Hgb 9.8 (L) 13.0 - 17.5 g/dL Hct 30.5 (L) 38.9 - 50.3 % Plt 434 (H) 150 - 400 K/cumm MPV 11.0 9.1 - 12.3 fL RBC 3.25 (L) 4.30 - 5.80 M/cumm MCV 93.8 81.3 - 96.4 fL MCH 30.2 27.1 - 33.3 pg MCHC 32.1 (L) 32.3 - 35.7 g/dL RDW CV 14.6 11.1 - 14.9 % RDW SD 49.0 (H) 35.7 - 48.1 fL NRBC abs 0.00 0.00 - 0.01 K/cumm Basic metabolic panel Collection Time: 06/02/21 5:37 AM Result Value Ref Range Sodium 135 135 - 145 mmol/L Potassium, pl 4.2 3.3 - 4.9 mmol/L Chloride 104 97 - 110 mmol/L CO2 21 (L) 22 - 32 mmol/L Anion gap 10 2 - 15 mmol/L BUN 13 8 - 25 mg/dL Creatinine 0.52 (L) 0.80 - 1.30 mg/dL Glucose 139 70 - 199 mg/dL Calcium 8.7 8.5 - 10.3 mg/dL Vancomycin level trough Collection Time: 06/02/21 5:37 AM Result Value Ref Range Vancomycin trough 18.8 10.0 - 20.0 mcg/mL eGFR Collection Time: 06/02/21 5:37 AM Result Value Ref Range eGFR 116 mL/min/1.73 m2 POCT glucose Collection Time: 06/02/21 6:46 AM Result Value Ref Range Glucose, POC 137 70 - 199 mg/dL POCT glucose Collection Time: 06/02/21 11:37 AM Result Value Ref Range Glucose, POC 251 (H) 70 - 199 mg/dL POCT glucose Collection Time: 06/02/21 4:21 PM Result Value Ref Range Glucose, POC 259 (H) 70 - 199 mg/dL POCT glucose Collection Time: 06/02/21 8:34 PM Result Value Ref Range Glucose, POC 193 70 - 199 mg/dL XR Chest 1 View - Portable - in AM Result Date: 05/11/2021 Narrative: EXAMINATION: XR CHEST 1 VIEW HISTORY: The patient is a 60-year-old male who has had cardiac surgery. Comparison made with the previous study dated 05/10/2021. TECHNIQUE: AP portable view of the chest. FINDINGS: Lungs clear. Heart not enlarged. Aortic atherosclerosis. No failure. The right IJ [place] catheter has been retracted with its tip in the distal superior vena cava. Impression: IMPRESSION: No failure. Electronically signed by: Elvira Blackman M.D. XR Chest 1 View - Portable - in AM Result Date: 05/10/2021 Narrative: EXAMINATION: XR CHEST 1 VIEW DATE: 05/10/2021 2:40 AM COMPARISON: 05/09/2021 HISTORY: 60-year-old man cardiac surgery follow-up FINDINGS:Compared with study the previous day, significant improvement. There is cardiomegaly with postsurgical changes with continued and decreasing failure. Bibasilar atelectasis with left pleural fluid decreasing. No pneumothorax. [place] catheter remainsin place Impression: Decreasing failure, atelectasis and left effusion. Electronically signed by: Deandre Lomeli M.D. XR Chest 1 View - Portable - in AM Result Date: 05/09/2021 Narrative: EXAMINATION: XR CHEST 1 VIEW DATE: 05/09/2021 4:10 AM HISTORY: 60-year-old man cardiac surgery follow-up FINDINGS:Compared with study the previous day, significant improvement. There is cardiomegaly with postsurgical changes with continued but decreasing failure. Bibasilar atelectasis with left pleural fluid decreasing. No pneumothorax. [place] catheter remains in place Impression: Decreasing failure, atelectasis and left effusion. Electronically signed by: Deandre Lomeli M.D. XR Chest 1 View - Portable - in AM Result Date: 05/08/2021 Narrative: EXAMINATION: XR CHEST 1 VIEW DATE: 05/08/2021 4:15 AM HISTORY: 60-year-old man cardiac surgery follow-up FINDINGS:Compared with study the previous day, significant improvement. There is cardiomegaly with postsurgical changes with continued but decreasing failure. Bibasilar atelectasis with left pleural fluid. No pneumothorax. [place] catheter remains in place Impression: Decreasing failure. No pneumothorax. Electronically signed by: Deacon Cummings M.D. XR Chest 1 View - Portable - in AM Result Date: 05/07/2021 Narrative: EXAMINATION: XR CHEST 1 VIEW DATE: 05/07/2021 3:55 AM HISTORY: 60-year-old man follow-upcardiac surgery FINDINGS:Compared with study of the previous day, postsurgical changes in the heartand mediastinum with cardiomegaly are stable. [place] catheter remains in place. Left thoracostomy tube remains in place. No pneumothorax. Pulmonary vascular congestion with interstitial lung disease remain prominent. Impression: Persistent prominent interstitial lung disease with failure. Electronically signed by: Deacon Cummings M.D. XR Chest 1 View - Portable - in AM Result Date: 05/06/2021 Narrative: EXAMINATION: XR CHEST 1 VIEW DATE: 05/06/2021 4:05 AM INDICATION: Cardiac surgery. COMPARISON: 05/05/2021. FINDINGS: No pneumothorax or pleural effusion. Similar-appearing pulmonary vascular congestion and interstitial opacities most notable in the bilateral upper lobes consistent with pulmonary edema. Pulmonary catheter catheter, left thoracostomy tube, and mediastinal drain are appropriately position. Intra-aortic balloon pump is appropriately positioned. Interval removal of endotracheal tube. Impression: 1. Interval removal of endotracheal tube. Remaining tubes and lines are appropriately positioned. 2. Similar-appearing cardiomegaly, pulmonary vascular congestion, and prominent bilateralinterstitial markings suggestive of interstitial pulmonary edema. Electronically signed by: Richard Zhao II, D.O. XR Chest 1 View - Portable - in AM Result Date: 05/05/2021 Narrative: EXAMINATION: XR CHEST 1 VIEW DATE: 05/05/2021 4:15 AM HISTORY: 60-year-old man cardiac surgery follow-up FINDINGS:Compared with the study of the prior day, tubes and catheters remain satisfactorily positioned. Worsening pulmonary vascular congestive changes are seen. Cardiomegaly with postsurgical changes stable. No pneumothorax. Impression: Increasing failure. Electronically signed by: Deacon Cummings M.D. XR Chest 1 Vw Portable Result Date: 05/05/2021 Narrative: EXAMINATION: XR CHEST 1 VIEW DATE: 05/04/2021 8:40 PM HISTORY: 60-year-old man coronary artery bypass follow-up FINDINGS:Compared with the study of earlier the same day, postsurgical changes now evident within the heart and mediastinum with cardiomegaly. Interval placement of endotracheal tube, nasogastric tube, [place] catheter, left thoracostomy tube and mediastinal drain all in satisfactory position. No pneumothorax. Interstitial lung disease with mild pulmonary vascular congestive changes. Aortic balloon pump is no longer seen. Impression: Tube placements with postsurgical changes with cardiomegaly with interstitial lung disease and mild failure with no pneumothorax. Electronically signed by: Deacon Cummings M.D. XR Chest 1 Vw Portable Result Date: 05/04/2021 Narrative: EXAMINATION: XR CHEST 1 VIEW DATE: 05/04/2021 9:05 AM HISTORY: Coronary artery disease FINDINGS:Comparison is made with study of 2 days earlier. Cardiomegaly, COPD with interstitial lung disease stable. Mild failure. Aortic balloon pump stable in position at the proximal descending aorta. No pneumothorax. No new infiltrates. Impression: Stable appearance. COPD cardiomegaly, with mild failure suspected. Electronically signed by: Deacon Cummings M.D. XR Chest 1 Vw Portable Result Date: 05/02/2021 Narrative: EXAMINATION: XR CHEST 1 VIEW DATE: 05/02/2021 5:15 AM INDICATION: Intra-aortic balloon pump. COMPARISON: 05/01/2021. FINDINGS: Appropriately positioned intra-aortic balloon pump appears unchanged. No pneumothorax or pleural effusion. Mixed reticular and alveolar opacities demonstrated inall lung lobes appear most significant in the upper lobes and perihilar regions, unchanged. Impression: 1. Appropriately positioned intra-aortic balloon pump. 2. Similar mixed reticular and alveolar opacities most notable in the bilateral upper lobes and perihilar region. Electronically signed by: Richard Lopez II, D.O. XR Chest 1 Vw Portable Result Date: 05/02/2021 Narrative: EXAMINATION: XR CHEST 1 VIEW DATE: 05/01/2021 8:15 PM INDICATION: Hypoxia. COMPARISON: None. FINDINGS: No pneumothorax. No pleural effusion. Mixed reticular and alveolar opacities are demonstrated in all lung lobes but demonstrate an upper lobe and perihilar predominance. Findings may represent pulmonary edema on background of centrilobular emphysematous changes. Underlying infectious process not entirely excludable. Cardiac mediastinal silhouette is stable in appearance. No acute osseous abnormality. Impression: Mixed reticular and alveolar opacities are demonstrated in all lung lobes but demonstrate an upper lobe and perihilar predominance. Findings may represent pulmonary edema on background ofcentrilobular emphysematous changes. Electronically signed by: Richard Lopez II, D.O. Transthoracic Echo (TTE) Limited Result Date: 05/07/2021 Narrative: [place] [address] Limited Echocardiogram Report Patient Name: DEEPAK ALVARADO : 1960 StudyDate: 05/07/2021 12:16:52 PM Gender: M Tech: SR Location: [id number] Ref.Provider: RHINA GRANADOS Height(Cm): 175 BSA: 2.1 Weight(Kg): 91 Heart Rate: 82 BP: 127/44 Quality: Good Order Provider: Dr. Sutton Procedures: Echocardiographic Report: Limited transthoracic echocardiogram with 2D and M-Mode. Measurements: 2D/M Mode Measurement Value Normal Range LVIDd 2D 3.43 [ 4.20 -5.90 ] cm LVIDs 2D 2.59 [ 2.30 - 3.90 ] cm LVPWd 2D 1.01 [ 0.60 - 1.00 ] cm IVSd 2D 0.71 [ 0.60 - 0.90 ] cm Findings: Left Ventricle: Reduced left ventricular cavity size. Mild global left ventricular systolic dysfunction. Ejection fraction is measured at 42 %. These segments of the LV are hypokinetic: apical anterior segment. Pericardium: Trivial pericardial effusion. No echocardiographic evidence to suggest pericardial tamponade. Conclusions: Reduced left ventricular cavity size. Mild global left ventricular systolic dysfunction. Ejection fraction is measured at 42 %. These segments of the LV are hypokinetic: apical anterior segment. Trivial pericardial effusion. No echocardiographic evidence to suggest pericardial tamponade. Electronically Signed By: Gianni Francois MD, [facility] :54:09 STAFF FORESTER Transthoracic Echo Complete W Doppler/CF Result Date: 05/02/2021 Narrative: [address] [address] Echocardiogram Report Patient Name: DEEPAK ALVARADO W : 1960 Study Date: 05/02/2021 8:50:02 AM Gender: M Tech: SR Location: [id number] Ref Provider: NALINI CLAYTONHeight(Cm): 175 BSA: 2.11 Weight(Kg): 92 Heart Rate: 89 BP: 102/52 Quality: Good Order Provider: NALINI CLAYTON PROCEDURES: Echocardiographic Report: Transthoracic echocardiogram with complete 2D, M-Mode, and color Doppler examination. INDICATIONS: Free Text. Measurements: 2D/M Mode DopplerMeasurement Value Normal Range Measurement Value Normal Range EF Teich 2D 30.0 [ 55.0 - 70.0 ] percent CHRISTINA Vmax 2.04 [ 2.00 - 4.00 ] cm2 EF Mod 4C 42.2 [ 55.0 - 70.0 ] percent AV Mean PG 5 [ 2 - 4 ] mmHg LVIDd 2D 4.54 [ 4.20 - 5.90 ] cm AV Peak Ramesh 1.54 [ 1.00 - 1.70 ] m/s LVIDs 2D 3.91 [ 2.30 - 3.90 ] cm AV VTI 26.93 cm LVPWd 2D 0.92 [ 0.60 - 1.00 ] cm LVOT Diam 2.20 [ 1.70 - 2.10 ] cm IVSd 2D0.76 [ 0.60 - 0.90 ] cm LVOT Peak Ramesh 0.83 [ 0.70 - 1.10 ] m/s LA Dimension MM 5.08 [ 3.00 - 4.00 ]cm LVOT VTI 13.82 [ 20.00 - 30.00 ] cm AoR Diam MM 4.12 [ 2.60 - 3.70 ] cm MV E Peak Ramesh 0.85 [ 0.60 - 1.30 ] m/s LA Volume Index 20.83 [ 16.00 - 28.00 ] cc/m2 MV A Peak Ramesh 1.14 [ 1.00 - 1.20 ] m/sACS MM 1.91 [ 1.50 - 2.60 ] cm MV Mean PG 1 [ <= 5 ] mmHg MV PHT 43 [ 20 - 100 ] msec MVA 2.20 MV Decel Time 137 [ 104 - 258 ] msec PV Peak Ramesh 1.10 [ 0.40 - 0.80 ] m/s TR Peak Ramesh 1.32 [ 1.00 -2.80 ] m/s TR Peak PG 7 mmHg RVSP 16.93 [ 10.00 - 36.00 ] mmHg E' 0.06 E/E' 14.00 Measurement Value Normal Range Measurement Value Normal Range 2D/M Mode Doppler - FINDINGS: Atrial Septum: Normal atrial septum. Left Ventricle: Normal left ventricular size. Left ventricle not well visualized. There is severe hypokinesis of the mid anteroseptal, anterior, and apical mancilla. Normal left ventricularwall thickness. Impaired diastolic relaxation Grade I. Ejection fraction is visually estimated at 40 %. Left Atrium: The left atrium is normal in size. Right Ventricle: Normal right ventricular size.Normal right ventricular systolic function. Right Atrium: The right atrium is normal in size. Aortic Valve: Normal structure of the aortic valve. No evidence of hemodynamically significant aortic stenosis by Doppler. No aortic regurgitation. Mitral Valve: Normal structure of the mitral valve. Trivial regurgitation of the mitral valve. Pulmonic Valve: Pulmonic valve not well visualized. Trivial regurgitation in the pulmonic valve. Tricuspid Valve: Normal structure of the tricuspid valve. Trivialregurgitation in the tricuspid valve. Pericardium: Normal pericardium with no significant pericardial effusion. Aorta: Normal aortic root. IVC: Normal size and normal respiratory collapse consistent with normal right atrial pressure (<5 mmHg). CONCLUSIONS: Technically difficult study with limited views. Normal left ventricular size. Left ventricle not well visualized. There is severe hypokinesis of the mid anteroseptal, anterior, and apical mancilla. Normal left ventricular wall thickness. Impaired diastolic relaxation Grade I. Ejection fraction is visually estimated at 40 %. Normal right ventricular size. Normal right ventricular systolic function. Normal structure of the mitral valve. Triv ial regurgitation of the mitral valve. Normal structure of the tricuspid valve. Trivial regurgitation in the tricuspid valve. Electronically Signed By: Rylee Brito, , FACC, VILMA, FAISAL 2021-05-02 14:07:25 STAFF FORESTER CC: CC: CC: ASSESSMENT/PLAN Hyponatremia from SIADH and possibly from zaroxylyn use. Work up for hyponatremia ongoing. PO FR If in clinical fluid overload, can use tolvaptan. Renal fn is better. Na better with loop diuresis, use PRN. Daily BMP. Na 135 and acceptable. Midodrine for hypotension. DC lisinopril. NAGMA noted Continue oral bicarb, is helping normonatremia as well. ?? Recent bladder tumor removal with hematuria. ?? -??Urology is following.H/H stable -Cysto vs conservative tx. -Voiding trial, hematuria has stopped. -Epistaxis Use nasal pillows. -CHF with decompensation Continue diuresis, diuretics stopped by audio director. RHC not done. Agree with Chandu. ?? Hypokalemia from diuresis. Replace PRN. ?? 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 COVID positive. Per protocol. On Remdisivir and Dex, course completed. Resp failure Acute on chronic, needs close monitoring, still on high flow oxygen. ?? Syncopal episode -(+) orthostasis -receiving albumin -IV lasix was discontinued. ??There is a 1x order for zaroxolyn 10mg this am- recommend holding fornow. ??D/w RN ?? Coronary artery disease -s/p CABG post STEMI -??underwent four-vessel bypass ??MAE to the LAD, sequential saphenous vein graft to diagonal and obtuse marginal and a vein graft to the PDA. -s/p??low dose dobutamine -paced rhythm ?? Moderate LV dysfunction -s/p IV??lasix??and??low dose??dobutamine -Beta blockers, ??[place] once off dobutamine-would hold off adding given syncopal episode this am -repeat ECHO 05/07 EF 42% (see above) ?Nonsustained ventricular tachycardia -no recurrence of VT -K 3.7, Mg??2.0. ??Supplement to keep K >/= 4.0, Mg >/= 2.0 ?Diabetes mellitus -?on lantus and SSI ?? COPD: ?? -on?O2 NC??4L (dried blood to L nare humidified o2 ordered) ?? Dyslipidemia -?Continue atorvastatin. ?PAD -?Stable ? Anemia -Hb??11.4 (10.5)??(8.6) -monitor ?? I can be reached at [phone] with any concerns. Thank you Robbie Celeste MD for the consult. Yves Weinberg MD [employer] [phone] F FORESTER * Robbie Celeste MD - 06/02/2021 3:34 PM CST General Medicine Daily Progress Patient is a 60 y.o. male who presented with a chief complaint of chest pain. Interval History: Subjective: States he would like to have his Osorio catheter removed. Objective: Vitals: 24hr Min/Max: Temp Min: 36.4 ??C (97.5 ??F) Max: 36.8 ??C (98.2 ??F) Pulse Min: 80 Max: 96 BP Min: 97/68 Max: 137/79 Resp Min: 18 Max: 18 SpO2 Min: 91 % Max: 98 % Most Recent : Vitals: 06/02/21 0800 06/02/21 1014 06/02/21 1100 06/02/21 1400 BP: 97/68 BP Location: Left arm Patient Position: Pulse: 90 Resp: 18 Temp: 36.4 ??C (97.5 ??F) TempSrc: Oral SpO2: 95% 94% 96% 98% Weight: Height: I/O last 2 completed shifts: In: - Out: 1500 [Urine:1500] I/O this shift: In: 10 [I.V.:10] Out: - Physical Exam: Gen: In no apparent distress Neuro: Alert, oriented in time place and person. weakness. Pulmonary: Not dyspneic. No crackles or rhonchi. Cardiovascular: HS 1, 2 . regular rhythm. No murmurs heard. GI: abdomen not distended, soft, non-tender. Musculoskeletal: No joint swelling, tenderness or warmth. : Osorio catheter in place. Urine clear Current Meds: albuterol HFA, 8 puff, inhalation, Q6H While awake (RT) aspirin, 81 mg, oral, Daily atorvastatin, 80 mg, oral, Nightly carvediloL, 3.125 mg, oral, BID with meals (bkfst, dinner) cefepime, 2,000 mg, intravenous, Q12H clopidogreL, 75 mg, oral, Daily dapagliflozin, 10 mg, oral, Daily enoxaparin, 40 mg, subcutaneous, Daily-2100 insulin lispro, 0-10 Units, subcutaneous, TID with meals insulin lispro, 0-5 Units, subcutaneous, Nightly midodrine, 15 mg, oral, TID pantoprazole DR, 40 mg, oral, Daily polyethylene glycol, 17 g, oral, Q12H QUEtiapine, 50 mg, oral, Nightly senna-docusate, 2 tablet, oral, Q12H sodium bicarbonate, 1,300 mg, oral, BID sodium chloride 0.9%, 0.5-20 mL, intra-catheter, Q8H LEAH vancomycin, 1,750 mg, intravenous, Q12H PRN Medications Medication Dose Route Frequency Last Admin ??? acetaminophen (TYLENOL) tablet 650 mg 650 mg oral Q6H PRN 650 mg at 05/29/21 1429 ? ? al & mag hydroxide mdyuqoxifki-zoilszdugurxuso-ffdyttbmb-nystatin (MAGIC MOUTHWASH) suspension 1-1-1-1 20 mL swish & spit Q4H PRN ??? albuterol 2.5 mg /3 mL (0.083 %) nebulizer solution 2.5 mg 2.5 mg nebulization Q4H PRN (RT) 2.5mg at 05/17/21 0224 ??? dextrose oral liquid liquid 15 g 15 g oral Q15 Min PRN Or ??? dextrose (D10W) 10% bolus 250 mL 250 mL intravenous Q15 Min PRN ??? dextrose oral liquid liquid 15 g 15 g oral Q15 Min PRN ??? glucagon injection 1 mg 1 mg intramuscular Q30 Min PRN ??? guaiFENesin (ROBITUSSIN) 20 mg/mL oral liquid 200 mg 200 mg oral QID PRN 200 mg at 05/25/21 1843 ??? ondansetron (ZOFRAN) injection 4 mg 4 mg intravenous Q6H PRN Lab/Radiology/Diagnostic Review: Recent Labs Lab Units 06/02/21 0537 06/01/21 1132 05/31/21 0539 WBC K/cumm 15.4* 16.3* 18.4* HEMOGLOBIN g/dL 9.8* 10.3* 10.4* HEMATOCRIT % 30.5* 33.0* 32.1* MCV fL 93.8 94.3 92.8 PLATELETS K/cumm 434* 508* 470* Recent Labs Lab Units 06/02/21 1137 06/02/21 0646 06/02/21 0537 06/01/21 1145 06/01/21 1132 05/31/21 0804 05/31/21 0539 SODIUM mmol/L -- -- 135 -- 135 -- 132* POTASSIUM PLASMA mmol/L -- -- 4.2 -- 3.8 -- 4.2 CHLORIDE mmol/L -- -- 104 -- 101 -- 102 CO2 mmol/L -- -- 21* -- 20* -- 18* ANIONGAP mmol/L -- -- 10 -- 14 -- 12 GLUCOSE mg/dL -- -- 139 < > 144 < > 118 POC GLUCOSE MONITOR mg/dL 251* 137 -- < > -- < > -- BUN SERUM mg/dL -- -- 13 -- 13 -- 16 CREATININE mg/dL -- -- 0.52* -- 0.47* -- 0.46* CALCIUM mg/dL -- -- 8.7 -- 8.7 -- 8.7 MAGNESIUM mg/dL -- -- 1.6 -- 1.7 -- 2.0 < > = values in this interval not displayed. No results found for: BNP No results found for: TROPONINT Recent Labs Lab Units 05/26/21 1601 COLOR U Yellow CLARITY U Clear SPEC GRAV U 1.028 PH, URINE 7.0 PROTEIN UR QL Negative GLUCOSE URQL 3+* KETONES UR Negative BLOOD UR 2+* NITRITE UR Negative LEUKOCYTE ESTERASE UR 1+* Estimated Creatinine Clearance: 153 mL/min (A) (by C-G formula based on SCr of 0.52 mg/dL (L)). Patient Active Problem List Diagnosis Date Noted ??? ST elevation myocardial infarction (STEMI) ([facility]) 05/01/2021 Assessment/Plan: 1. Acute anterior STEMI: CAD, post LHC, post CABG 05/04, IABP p;aced, removed 05/06. CTS consulted.Continue ASA, statin, plavix, beta octavia 2. Acute hypoxemic respiratory failure: / COVID-19. Transferred to ICU 05/17 for worsening hypoxemia/increased O2 requirements. CTPE neg for PE 3. chronic systolic HF; EF 37% 4. COVID-19 PNA: completed remdesivoir, decadron. 5. Possible bacterial PNA: continue cefepime + vancomycin. ID consulted. 6. RSV +ve: respiratory precautions 7. Cardiogenic Shock, post CABG: resolved. was on levophed and dobutamine. Now on midodrine. 8. Gross hematuria: Post cystoscopy, clot evacuation by urology on 05/14. TURBT at [place]. Osorio catheter in place. Voiding trial today. 9. V.fib 05/03: brief. Received amiodarone, dobutamine gtt. 10. DM2: continue SSI 11. Acute blood loss anemia: received blood transfusion 12. Tobacco smoking 13. Code status: Full code. 14. PT and OT evaluation. Robbie Celeste MD [facility] Pager #: [phone] This note is dictated and transcribed by [email or web address] Direct direct software. Court Monitor variances may occur. Despite proof reading, typographical errors may occur. F FORESTER * Narciso Mayer MD - 06/02/2021 11:50 AM CST Pulmonary Daily Progress Chief complaint/reason for consult: Respiratory failure. Interval History: Oxygen at 2 liters and sat of 94 to 96% Denies dyspnea; cough improved Afebrile alert No sputum production No NVD Day 8 cefepime / vancomycin today COVID positive 05/19/21 Presenting History: 60 yo man w COPD, DM, CAD/stents admitted 05/01/21 with chest pain. Had recent hematuria as well. Workup revealed an acute MT. Cath showed multi-vessel CAD. Had balloon pump placed. CABG x 4 done on 05/04/21. He was continued on mechanical ventilation and self extubated this AM (05/05/21). He is on multiple pressors. Sedated with precedex. Some tachypnea. A balloon pump is in place. Current tobacco use. COPD listed as prior diagnosis. No inhalers on home med list. Allergies: Allergies Allergen Reactions ? ? Metformin Nausea & Vomiting ??? Metoclopramide Medications: Scheduled Meds:albuterol HFA, 8 puff, inhalation, Q4H While awake (RT) aspirin, 81 mg, oral, Daily atorvastatin, 80 mg, oral, Nightly carvediloL, 3.125 mg, oral, BID with meals (bkfst, dinner) cefepime, 2,000 mg, intravenous, Q12H clopidogreL, 75 mg, oral, Daily dapagliflozin, 10 mg, oral, Daily enoxaparin, 40 mg, subcutaneous, Daily-2100 insulin lispro, 0-10 Units, subcutaneous, TID with meals insulin lispro, 0-5 Units, subcutaneous, Nightly magnesium sulfate, 2 g, intravenous, Once midodrine, 15 mg, oral, TID pantoprazole DR, 40 mg, oral, Daily polyethylene glycol, 17 g, oral, Q12H QUEtiapine, 50 mg, oral, Nightly senna-docusate, 2 tablet, oral, Q12H sodium bicarbonate, 1,300 mg, oral, BID sodium chloride 0.9%, 0.5-20 mL, intra-catheter, Q8H LEAH vancomycin, 1,750 mg, intravenous, Q12H Continuous Infusions: PRN Meds:.??? acetaminophen ? ? al & mag hydroxide xmlwubelzyk-vymclzawayuwrzr-puhgvvune-nystatin ??? albuterol ??? dextrose OR dextrose ??? dextrose OR [DISCONTINUED] dextrose ??? glucagon ??? guaiFENesin ??? ondansetron ROS Above review of system reviewed on 06/02/2021 Vitals: Vitals: 06/02/21 0700 06/02/21 0800 06/02/21 1014 06/02/21 1100 BP: 129/85 97/68 BP Location: Left arm Left arm Patient Position: Lying Pulse: 80 90 Resp: 18 18 Temp: 36.7 ??C (98.1 ??F) 36.4 ??C (97.5 ??F) TempSrc: Oral Oral SpO2: 95% 95% 94% 96% Weight: Height: Temp (24hrs), Av.7 ??C (98.1 ??F), Min:36.4 ??C (97.5 ??F), Max:37 ??C (98.6 ??F) Intake/Output Summary (Last 24 hours) at 06/02/2021 1150 Last data filed at 06/01/2021 2030 Gross per 24 hour Intake -- Output 1500 ml Net -1500 ml Physical Exam Constitutional: General: He is not in acute distress. Appearance: He is well-developed. HENT: Head: Normocephalic and atraumatic. Eyes: General: No scleral icterus. Conjunctiva/sclera: Conjunctivae normal. Neck: Thyroid: No thyromegaly. Cardiovascular: Rate and Rhythm: Normal rate and regular rhythm. Heart sounds: No murmur heard. Pulmonary: Effort: Pulmonary effort is normal. No respiratory distress. Breath sounds: Normal breath sounds. No wheezing, rhonchi or rales. Chest: Comments: Sternotomy incision Abdominal: General: Bowel sounds are normal. Palpations: Abdomen is soft. Skin: General: Skin is warm and dry. Neurological: Mental Status: He is alert. Lab/Radiology/Diagnostic Review: Labs: Recent Labs Lab Units 06/02/21 0537 06/01/21 1132 05/31/21 0539 WBC K/cumm 15.4* 16.3* 18.4* HEMOGLOBIN g/dL 9.8* 10.3* 10.4* HEMATOCRIT % 30.5* 33.0* 32.1* PLATELETS K/cumm 434* 508* 470* Recent Labs Lab Units 06/02/21 0646 06/02/21 0537 06/02/21 0207 06/01/21 1145 06/01/21 1132 05/31/21 0804 05/31/21 0539 SODIUM mmol/L -- 135 -- -- 135 -- 132* POTASSIUM PLASMA mmol/L -- 4.2 -- -- 3.8 -- 4.2 CHLORIDE mmol/L -- 104 -- -- 101 -- 102 CO2 mmol/L -- 21* -- -- 20* -- 18* ANIONGAP mmol/L -- 10 -- -- 14 -- 12 GLUCOSE mg/dL -- 139 -- -- 144 < > 118 POC GLUCOSE MONITOR mg/dL 137 -- 120 < > -- < > -- BUN SERUM mg/dL -- 13 -- -- 13 -- 16 CREATININE mg/dL -- 0.52* -- -- 0.47* -- 0.46* CALCIUM mg/dL -- 8.7 -- -- 8.7 -- 8.7 < > = values in this interval not displayed. Respiratory pathogen pcr 05/26: + rhinovirus Legionella Ag: negative Pneumococcal Ag: negative Imaging: CXR 05/31: CM, increased PVC, similar bilateral infiltrates CT chest 05/19/21: b gg inf, severe emphysema CT chest 05/25/21: b inf, emphysema, no PE Other diagnostic tests: I have personally reviewed above laboratory findings, chest imaging, and diagnostic tests 06/02/2021 Assessment and Plan: Acute respiratory failure Acute MT w CAD s/p CABG x 4 on 05/04/21, past hx multiple stents Cardiogenic shock, resolved Cardiomyopathy EF 40% V fib COPD: severe emphysematous changes on CT Anemia Hematuria s/p cystoscopy/fulguration COVID 19, diagnosed 05/19/21, resp status began worsening 05/15/21 Possible bacterial pneumonia Rhinovirus ?? Recs: Oxygen support, adjust as needed Check ambulatory needs when off iv antibiotics Dexamethasone: completed Baricitinib: stopped 05/26 Remdesivir: completed On cefepime and vancomycin as per ID Incentive spirometry Scheduled albuterol Increase activity as tolerated perspective F FORESTER * Amie Downey [facility] - 06/02/2021 11:37 AM CST Pharmacokinetic Consult - Vancomycin Dosing Deepak Alvarado is a 60 y.o. male who has been consulted for vancomycin dosing for HAP. Relevant clinical data and objective history reviewed: Creatinine Date Value Ref Range Status 06/02/2021 0.52 (L) 0.80 - 1.30 mg/dL Final 06/01/2021 0.47 (L) 0.80 - 1.30 mg/dL Final 05/31/2021 0.46 (L) 0.80 - 1.30 mg/dL Final BUN Date Value Ref Range Status 06/02/2021 13 8 - 25 mg/dL Final 06/01/2021 13 8 - 25 mg/dL Final 05/31/2021 16 8 - 25 mg/dL Final Estimated Creatinine Clearance: 153 mL/min (A) (by C-G formula based on SCr of 0.52 mg/dL (L)). I/O last 3 completed shifts: In: 0 Out: 2750 [Urine:2750] Lab Results Component Value Date/Time WBC 15.4 (H) 06/02/2021 05:37 AM HGB 9.8 (L) 06/02/2021 05:37 AM HGB 7.8 (L) 05/04/2021 07:28 PM HCT 30.5 (L) 06/02/2021 05:37 AM MCV 93.8 06/02/2021 05:37 AM LABPLAT 434 (H) 06/02/2021 05:37 AM Temp Readings from Last 3 Encounters: 06/02/21 36.7 ??C (98.1 ??F) (Oral) Patient Weight 05/29/21 76.3 kg (168 lb 3.4 oz) Assessment/Plan The patient has been receiving vancomycin 1750 mg every 12 hours. Vancomycin trough level returned as 18.8 on 06/02/21 at 0537. No adjustment to dose or frequency necessary. Per ID note 06/01/21 abx to 06/05/21. No more levels needed. Pharmacy will continue to follow the patient???s culture results and clinical progress daily. Day 8 of therapy Amie Downey RPh F FORESTER * Shruthi Hu COTA - 06/02/2021 10:35 AM CST Occupational Therapy NOTE / SESSION TYPE: DAILY PROGRESS / TREATMENT Patient's Name: Deepak Alvarado Age / Sex: 60 y.o. / male Room: [place] [id number] : 1960 Date of service: 06/02/21 TIME IN: 10:38 TIME OUT: 11:48 Patient Active Problem List Diagnosis ??? ST elevation myocardial infarction (STEMI) (HCC) Past Medical History: Diagnosis Date ??? Chronic obstructive pulmonary disease (CMS/HCC) (HCC) COPD ??? Coronary artery disease ??? Diabetes mellitus (HCC) ??? H/O heart artery stent 2006 ??? Hypertension Hypertension ??? ST elevation (STEMI) myocardial infarction (HCC) 05/01/2021 History reviewed. No pertinent surgical history. Precautions (including weight-bearing): Fall risk, Bed / chair alarm, Sternal precautions, Cardiac precautions, Contact isolation: COVID and Airborne precautions: COVID Subjective: NO, NOT YET. IN REFERENCE TO CURRENTLY BEING IN ANY PAIN PER THERAPIST REQUEST Therapy Pain: Pre-therapy pain level: 0 /10 Pain location: No pain - Location N/A Pain Intervention(s): No pain - Intervention N/A Post-therapy pain level: 0 /10 Pain scale reference: 0-10 SCALE Objective: Appearance: Presentation upon OT arrival: Patient Supine with head of bed elevated Presentation upon OT departure: Patient Sitting in bedside chair Bed / Chair alarm in place and activated upon OT departure: Yes Call light within arms reach of patient at end of session: Yes Completed patient handoff and notified MANAGER RENTAL / RN, name: REGINA, of patient's location and functional status upon completion of session VITAL SIGNS: Heart rate at rest: 101 BPM Heart rate with activity: 118 BPM O2 saturations at rest on 2 LPM: 95 % O2 saturations with activity on 3 LPM: 90-91 % Oxygen LPM: REMAINED ON 3 LPM OF O2 DURING COMPLETION OF SHOWER ADL. HOWEVER, REMAINED ON 2 LPM OF O2 OUTSIDE OF ALL SHOWER TASKS Cognitive / Perceptual: FOLLOWED ONE-STEP COMMANDS WITHOUT ANY SIGNS OF DIFFICULTY THIS A.M. Mobility / Transfers: Bed Mobility: SBA WITH INCREASED TIME FROM SUPINE WITH HOB ELEVATED > SEATED AT EOB Transfer(s): CGA FROM SEATED AT EOB > STANDING AT EOB WITH STEAM ROLLER OPERATOR PER THERAPIST CGA AND INTERMITTENT MOD ASSIST FOR CORRECTION OF X 1 MODERATE LOB DURING FUNCTIONAL MOBILITY TRANSFER FROM STANDING AT EOB > SEATED AT STANDARD TOILET WITH STEAM ROLLER OPERATOR AND UTILIZATION OF MANCILLA VS. GRAB BARS FOR EXTRA STABILITY/BALANCE CGA FROM SEATED AT STANDARD TOILET > STANDING AT STANDARD TOILET WITH TOILET GRAB BARS CGA FOR SIT <> STAND FROM SEATED AT FOLD-DOWN SHOWER BENCH <> STANDING AT SHOWER GRAB BARS TO COMPLETE BATHING TASKS CGA WITH STEAM ROLLER OPERATOR FOR FUNCTIONAL MOBILITY TRANSFER FROM STANDING AT SHOWER GRAB BARS > SEATED AT BEDSIDE CHAIR TUB / SHOWER TRANSFER LOCATION: WET WALK-IN SHOWER OVERALL ASSIST LEVEL: INCIDENTAL TOUCHING ASSISTANCE DEVICE: GRAB BARS ADDITIONAL DOCUMENTATION: REQUIRED CGA WITH STEAM ROLLER OPERATOR FROM STANDING AT STANDARD TOILET > SEATED AT FOLD-DOWN SHOWER BENCH WITH UTILIZATION OF GRAB BARS. Living Skills / Other Activities: SHOWER / BATHE SELF TYPE OF BATHING: WET WALK-IN SHOWER LOCATION OF SHOWER / BATHE SELF: Sitting on fold-down shower bench and Standing at SHOWER GRAB BARS TASKS COMPLETED: ALL COMPONENTS COMPONENTS THAT REQUIRED ASSISTANCE (IF APPLICABLE): NONE OVERALL ASSIST LEVEL: INCIDENTAL TOUCHING ASSISTANCE ADAPTIVE EQUIPMENT (IF APPLICABLE): handheld shower nozzle and fold-down shower bench ADDITIONAL DOCUMENTATION: UTILIZED LEG-CROSSOVER TECHNIQUE TO BATHE BLEs INCLUDING BILATERAL FEET. REQUIRED CGA WHILE STANDING AT GRAB BARS TO COMPLETE TAMIKA/BUTTOCK COMPONENTS UE DRESSING LOCATION OF UE DRESSING: Sitting on fold-down shower bench TASKS COMPLETED: Hospital gown OVERALL ASSIST LEVEL: PARTIAL / MODERATE ASSISTANCE: LESS THAN HALF (1% - 49%) ADDITIONAL DOCUMENTATION: REQUIRED MIN ASSIST TO UNTIE/TIE GOWNS IN BACK WHEN DOFFING/DONNING HOSPITAL GOWNS PUTTING ON / TAKING OFF FOOTWEAR LOCATION OF PUTTING ON / TAKING OFF FOOTWEAR: Sitting on fold-down shower bench TASKS COMPLETED: Footie(s) OVERALL ASSIST LEVEL: SET-UP / CLEAN-UP ASSISTANCE ADDITIONAL DOCUMENTATION: PATIENT DOFFED/DONNED BILATERAL LE FOOTIES WITH UTILIZATION OF LEG-CROSSOVER TECHNIQUE AND SET-UP Caregiver Present: No Education & Training Provided: Role of OT, OT plan of care, ADL training, Compensatory ADL strategies, Bed mobility training, Functional transfer training, Balance training and Safety education Assessment: Activity tolerance / response to OT session: GOOD PARTICIPATION, GOOD MOTIVATION, RECEPTIVE TO EDUCATION / TRAINING and PRN REST BREAKS REQUIRED Progress towards goals: Please refer to care plan from this date for progress towards individual goals Plan: Therapy Plan: Rehab Potential (Prognosis): good OT Recommendations This Date: Location: Inpatient rehabilitation pending qualify criteria Supervision: 24 hour Follow-up Therapy Recommendations: SKILLED OT IN INPATIENT REHABILITATION SETTING OT Consultation in Regards to Discharge Recommendations: N/A Frequency of therapy: 3-5 times / week If this is the last note, consider this the discharge summary CAITIE Tinsley 06/02/21 Cosigned by Chiara Fonseca OT at 06/02/2021 4:10 PM STAFF FORESTER F FORESTER F FORESTER F FORESTER * Cristina Serrano, EFREN - 06/02/2021 9:55 AM CST Daily Progress SUBJECTIVE: Mr. Alvarado is resting in bed, states he is feeling better. Eating better, no chest pain or sob. OBJECTIVE: Vitals: 06/01/21 2319 06/02/21 0000 06/02/21 0400 06/02/21 0700 BP: 110/70 129/85 BP Location: Left arm Left arm Patient Position: Lying Lying Pulse: 90 92 93 80 Resp: 18 18 Temp: 36.8 ??C (98.2 ??F) 36.7 ??C (98.1 ??F) TempSrc: Oral Oral SpO2: 94% 95% Weight: Height: Intake/Output Summary (Last 24 hours) at 06/02/2021 0959 Last data filed at 06/01/20212029 Gross per 24 hour Intake -- Output 1500 ml Net -1500 ml Scheduled Medications Medication Dose Route Frequency ??? albuterol HFA (PROVENTIL HFA,VENTOLIN HFA,PROAIR HFA) 90 mcg/actuation inhaler 8 puff 8 puff inhalation Q4H While awake (RT) ??? aspirin enteric coated tablet 81 mg 81 mg oral Daily ??? atorvastatin (LIPITOR) tablet 80 mg 80 mg oral Nightly ??? carvediloL (COREG) tablet 3.125 mg 3.125 mg oral BID with meals (bkfst, dinner) ??? cefepime (MAXIPIME) 2,000 mg in sodium chloride 0.9% 100 mL IVPB 2,000 mg intravenous Q12H ??? clopidogreL (PLAVIX) tablet 75 mg 75 mg oral Daily ??? dapagliflozin (FARXIGA) tablet 10 mg 10 mg oral Daily ??? enoxaparin (LOVENOX) syringe 40 mg 40 mg subcutaneous Daily-2100 ??? insulin lispro (HumaLOG, ADMELOG) 100 unit/mL injection 0-10 Units 0-10 Units subcutaneous TID with meals ??? insulin lispro (HumaLOG, ADMELOG) 100 unit/mL injection 0-5 Units 0-5 Units subcutaneous Nightly ??? midodrine (PROAMATINE) tablet 15 mg 15 mg oral TID ??? pantoprazole DR (PROTONIX) extended release tablet 40 mg 40 mg oral Daily ??? polyethylene glycol (MIRALAX) packet 17 g 17 g oral Q12H ??? QUEtiapine (SEROquel) tablet 50 mg 50 mg oral Nightly ??? senna-docusate (PERICOLACE) 8.6-50 mg per tablet 2 tablet 2 tablet oral Q12H ??? sodium bicarbonate tablet 1,300 mg 1,300 mg oral BID ??? sodium chloride 0.9% flush 0.5-20 mL 0.5-20 mL intra-catheter Q8H LEAH ??? vancomycin (VANCOCIN) 1,750 mg in sodium chloride 0.9% 500 mL IVPB 1,750 mg intravenous Q12H LABS: Recent Labs Lab Units 06/02/21 0537 WBC K/cumm 15.4* HEMOGLOBIN g/dL 9.8* HEMATOCRIT % 30.5* PLATELETS K/cumm 434* Recent Labs Lab Units 06/02/21 0646 06/02/21 0537 06/02/21 0207 SODIUM mmol/L -- 135 -- POTASSIUM PLASMA mmol/L -- 4.2 -- CHLORIDE mmol/L -- 104 -- CO2 mmol/L -- 21* -- ANIONGAP mmol/L -- 10 -- GLUCOSE mg/dL -- 139 -- POC GLUCOSE MONITOR mg/dL 137 -- < > BUN SERUM mg/dL -- 13 -- CREATININE mg/dL -- 0.52* -- CALCIUM mg/dL -- 8.7 -- < > = values in this interval not displayed. No results found for: BNP No results found for: TROPONINI Exam General: in no apparent distress Neuro: Alert and oriented x 3, HEENT: normocephalic, atraumatic, Lungs: symmetric, unlabored,decreased BS post to auscultation bilaterally Heart: S1,S2, regular rate & rhythm, no murmurs, rubs, or gallops Abdomen: soft, non-tender, non-distended, bowel sounds present Extremities: no LE edema, ASSESSMENT/PLAN: CAD/STEMI s/p CABG - Cardiac cath 05/01 with 40% distal LM, 100% prox LAD, 90% prox Cx, 50% prox and distal RCA - Echo 05/02 EF??37% -VF (brief) on 05/03 treated with Amiodarone -CABG x4 05/04/2021 -continue ASA/Statin -low dose Coreg resumed monitoring closely, had lower BP ?? COVID 19 - dx 05/19/21 - Remdesivir and dexamethasone -on??n/c??O2??at 2L -Pulmonology following ?? Acute Respiratory failure - Lung infiltrates per CXR on 05/19, completed Abx, COVID + - transferred to ICU 05/17 for increasing oxygen requirments - CT PE negative? Hypomagnesemia -low at 1.6 -will replace today Hematuria -resolved -cysto 05/14 ?? Urinary retention -urology following ?? S/p Cardiogenic shock + Hypotension -off pressors -midodrine TID -BP improved ?? HLD -stable??on Statin ?? PLAN: No CV recs, pending SNF placement Cristina Serrano, ESCROW CLERK, MSN, ANP-[facility] 06/02/2021 9:59 AM Cosigned by Lester Batista MD at 06/02/2021 10:10 AM STAFF FORESTER F FORESTER F FORESTER * Narciso Mayer MD - 06/01/2021 3:24 PM CST Pulmonary Daily Progress Chief complaint/reason for consult: Respiratory failure. Interval History: Oxygen weaned from 10 lpm yesterday to 4 lpm yesterday, today on RA with sat of 93% laying in bed. Today is day 7 of cefepime/vanc Denies dyspnea; cough improved Afebrile alert No sputum production No NVD COVID positive 05/19/21 Presenting History: 60 yo man w COPD, DM, CAD/stents admitted 05/01/21 with chest pain. Had recent hematuria as well. Workup revealed an acute MT. Cath showed multi-vessel CAD. Had balloon pump placed. CABG x 4 done on 05/04/21. He was continued on mechanical ventilation and self extubated this AM (05/05/21). He is on multiple pressors. Sedated with precedex. Some tachypnea. A balloon pump is in place. Current tobacco use. COPD listed as prior diagnosis. No inhalers on home med list. Allergies: Allergies Allergen Reactions ? ? Metformin Nausea & Vomiting ??? Metoclopramide Medications: Scheduled Meds:albuterol HFA, 8 puff, inhalation, Q4H While awake (RT) aspirin, 81 mg, oral, Daily atorvastatin, 80 mg, oral, Nightly carvediloL, 3.125 mg, oral, BID with meals (bkfst, dinner) cefepime, 2,000 mg, intravenous, Q12H clopidogreL, 75 mg, oral, Daily dapagliflozin, 10 mg, oral, Daily enoxaparin, 40 mg, subcutaneous, Daily-2100 insulin lispro, 0-10 Units, subcutaneous, TID with meals insulin lispro, 0-5 Units, subcutaneous, Nightly midodrine, 15 mg, oral, TID pantoprazole DR, 40 mg, oral, Daily polyethylene glycol, 17 g, oral, Q12H QUEtiapine, 50 mg, oral, Nightly senna-docusate, 2 tablet, oral, Q12H sodium bicarbonate, 1,300 mg, oral, BID sodium chloride 0.9%, 0.5-20 mL, intra-catheter, Q8H LEAH vancomycin, 1,750 mg, intravenous, Q12H Continuous Infusions: PRN Meds:.??? acetaminophen ? ? al & mag hydroxide hayhowqyqdz-hjiuanhqojqcbcj-ivcpvwsbn-nystatin ??? albuterol ??? dextrose OR dextrose ??? dextrose OR [DISCONTINUED] dextrose ??? glucagon ??? guaiFENesin ??? ondansetron ROS Above review of system reviewed on 06/01/2021 Vitals: Vitals: 06/01/21 0813 06/01/21 1200 06/01/21 1202 06/01/21 1438 BP: 104/77 126/70 BP Location: Patient Position: Pulse: 90 (!) 31 Resp: 18 Temp: 37 ??C (98.6 ??F) TempSrc: SpO2: 97% (!) 84% Weight: Height: Temp (24hrs), Av.7 ??C (98 ??F), Min:36.3 ??C (97.4 ??F), Max:37.1 ??C (98.7 ??F) Intake/Output Summary (Last 24 hours) at 06/01/2021 1524 Last data filed at 06/01/2021 0655 Gross per 24 hour Intake 0 ml Output 1440 ml Net -1440 ml Physical Exam Constitutional: General: He is not in acute distress. Appearance: He is well-developed. HENT: Head: Normocephalic and atraumatic. Eyes: General: No scleral icterus. Conjunctiva/sclera: Conjunctivae normal. Neck: Thyroid: No thyromegaly. Cardiovascular: Rate and Rhythm: Normal rate and regular rhythm. Heart sounds: No murmur heard. Pulmonary: Effort: Pulmonary effort is normal. No respiratory distress. Breath sounds: Normal breath sounds. No wheezing, rhonchi or rales. Chest: Comments: Sternotomy incision Abdominal: General: Bowel sounds are normal. Palpations: Abdomen is soft. Skin: General: Skin is warm and dry. Neurological: Mental Status: He is alert. Lab/Radiology/Diagnostic Review: Labs: Recent Labs Lab Units 06/01/21 1132 05/31/21 0539 05/30/21 0405 WBC K/cumm 16.3* 18.4* 14.4* HEMOGLOBIN g/dL 10.3* 10.4* 10.0* HEMATOCRIT % 33.0* 32.1* 29.8* PLATELETS K/cumm 508* 470* 467* Recent Labs Lab Units 06/01/21 1145 06/01/21 1132 06/01/21 0630 05/31/21 0804 05/31/21 0539 05/30/21 0754 05/30/21 0405 SODIUM mmol/L -- 135 -- -- 132* -- 131* POTASSIUM PLASMA mmol/L -- 3.8 -- -- 4.2 -- 4.0 CHLORIDE mmol/L -- 101 -- -- 102 -- 100 CO2 mmol/L -- 20* -- -- 18* -- 20* ANIONGAP mmol/L -- 14 -- -- 12 -- 11 GLUCOSE mg/dL -- 144 -- -- 118 < > 144 POC GLUCOSE MONITOR mg/dL 155 -- 116 < > -- < > -- BUN SERUM mg/dL -- 13 -- -- 16 -- 20 CREATININE mg/dL -- 0.47* -- -- 0.46* -- 0.47* CALCIUM mg/dL -- 8.7 -- -- 8.7 -- 8.6 < > = values in this interval not displayed. Respiratory pathogen pcr 05/26: + rhinovirus Legionella Ag: negative Pneumococcal Ag: negative Imaging: CXR 05/31: CM, increased PVC, similar bilateral infiltrates CT chest 05/19/21: b gg inf, severe emphysema CT chest 05/25/21: b inf, emphysema, no PE Other diagnostic tests: I have personally reviewed above laboratory findings, chest imaging, and diagnostic tests 06/01/2021 Assessment and Plan: Acute respiratory failure Acute MT w CAD s/p CABG x 4 on 05/04/21, past hx multiple stents Cardiogenic shock, resolved Cardiomyopathy EF 40% V fib COPD: severe emphysematous changes on CT Anemia Hematuria s/p cystoscopy/fulguration COVID 19, diagnosed 05/19/21, resp status began worsening 05/15/21 Possible bacterial pneumonia Rhinovirus ?? Recs: Oxygen support, adjust as needed Check ambulatory needs when off iv antibiotics Dexamethasone: completed Baricitinib: stopped 05/26 Remdesivir: completed On cefepime and vancomycin as per ID Incentive spirometry Scheduled albuterol Increase activity as tolerated perspective F FORESTER * Yves Weinberg MD - 06/01/2021 1:30 PM CST Nephrology Progress Note [facility] SUBJECTIVE 06/01 Doing a little better. All labs reviewed. Stable renal fn and lytes. 05/31 Na 132, Cr normal. To be transferred to today. Good UO. All labs reviewed. Bicarb better. Very deconditioned. Agreeable to SNF. 05/29/21 Remains frail. BP soft, on hi dose midodrine. Still requiring sig oxygen. Very deconditioned. May need SNF vs LTAC. Na 130, bicarb 18. Cr normal. 05/28/21 Appears better. All labs and data reviewed. Na and CR stable. Started on lisinopril. Will DC. On high dose midodrine. O2 sats still not Acceptable. Na 135, bicarb 17. Cr normal. Mg low, being replaced. 05/27/21 Doing about the same. Has completed tx for COVID. Still in ICU. All labs reviewed. 05/26/21 Doing fair. Appears comfortable. Some dyspnea. All labs and data reviewed. Na and Cr stable. Good UO. 05/25/21 Doing fair. All labs reviewed. Renal fn nl. Na 132. Overall slowly improving. 05/24/21 Pt seen/examined. All labs and data reviewed. Getting IV lasix PRN. Na 133, lytes and renal fn stable. 05/23/21 Pt seen/examined. All labs reviewed. Receiving K phos. BP soft, on hi dose midodrine. Na 132. I gave lasix 40 iv times 1 for falling UO. Remains in ICU. 05/22/21 Pt seen/examined. All labs and data reviewed. Na 134, Cr 0.62. Dyspnea better. Eager to go home but remains in ICU. Stable renal fn and lytes. OK for loop diuretics PRN. Avoid thiazides. 05/21/21 Pt seen/examined. All labs reviewed. Off lasix drip. Still dyspneic. Renal fn better. Na 135. 05/20/21 Pt seen/examined. All labs and data reviewed. COVID pos. On Dex and remdisivir. On lasix drip. Na 130, Cr 1.44. 05/19 Cr 1.41 Na 130. Started on Corlanor. Appears stable. BP remains very soft. UO not accurate. 05/17 Transferred to ICU for hi O2 requirements. Has left nostril epistaxis. On low dose pressors and lasix and insulin drip. Na 128, should improve with loop diuresis. Cr 1.2. 05/16 Creatinine stable and sodium trending up.On IV lasix,lytes wnl.Osorio out,having some problems with retention- nurses in contact with urology,doing bladder scans. 05/15/21 Doing fair. Osorio out. Has not voided yet. Na 131 with loop diuresis and improved. All labs and data reviewed. Excellent UO. Doing fair. Some flank pain and mild dyspnea. Na 127 and a little lower. BP better. Agreeable to cysto, but urology planning on conservative tx. Will start loop diuresis. OBJECTIVE Vitals: Vitals: 06/01/21 0800 06/01/21 0813 06/01/21 1200 06/01/21 1202 BP: 104/77 BP Location: Patient Position: Pulse: 90 90 (!) 31 Resp: 18 Temp: 37 ??C (98.6 ??F) TempSrc: SpO2: 97% (!) 84% Weight: Height: Intake/Output Summary (Last 24 hours) at 06/01/2021 1330 Last data filed at 06/01/2021 0655 Gross per 24 hour Intake 0 ml Output 1440 ml Net -1440 ml REVIEW OF SYSTEMS Review of Systems Epistaxis, dyspnea. Constitutional: Negative. HENT: Negative. Eyes: Negative. Respiratory: Negative. Cardiovascular: Negative. Gastrointestinal: Negative. Genitourinary: Negative. Musculoskeletal: Negative. Skin: Negative. Allergic/Immunologic: Negative. Hematological: Negative. All other systems reviewed and are negative. PHYSICAL EXAM Physical Exam Constitutional: Appears well-developed. O2 on HENT: wnl Head: Normocephalic. Eyes: Pupils are equal, round, and reactive to light. Neck: Normal range of motion. Neck supple. Cardiovascular: Normal rate. Pulmonary/Chest: Effort normal and breath sounds normal. Abdominal: Soft. NT,active BS Musculoskeletal: Normal range of motion. Neurological: Alert, oriented. Skin: Skin is warm. Nursing note and vitals reviewed. MEDICATIONS Current Facility-Administered Medications: ??? acetaminophen (TYLENOL) tablet 650 mg, 650 mg, oral, Q6H PRN, Silviano Huddleston NP, 650 mg at 05/29/21 1429 ? ? al & mag hydroxide nghnpyjxifl-fzagnneeaaxbzsi-gjhecdoaz-nystatin (MAGIC MOUTHWASH) suspension 1-1-1-1, 20 mL, swish & spit, Q4H PRN, Silviano Huddleston NP ??? albuterol 2.5 mg /3 mL (0.083 %) nebulizer solution 2.5 mg, 2.5 mg, nebulization, Q4H PRN (RT),Silviano Huddleston NP, 2.5 mg at 05/17/21 0224 ??? albuterol HFA (PROVENTIL HFA,VENTOLIN HFA,PROAIR HFA) 90 mcg/actuation inhaler 8 puff, 8 puff, inhalation, Q4H While awake (RT), Silviano Huddleston NP, 8 puff at 06/01/21 0813 ??? aspirin enteric coated tablet 81 mg, 81 mg, oral, Daily, Silviano Huddleston NP, 81 mg at 06/01/21 09 ??? atorvastatin (LIPITOR) tablet 80 mg, 80 mg, oral, Nightly, Silviano Huddleston NP, 80 mg at 05/31/212148 ??? carvediloL (COREG) tablet 3.125 mg, 3.125 mg, oral, BID with meals (bkfst, dinner), Silviano Huddleston NP, 3.125 mg at 06/01/21900 ??? cefepime (MAXIPIME) 2,000 mg in sodium chloride 0.9% 100 mL IVPB, 2,000 mg, intravenous, Q12H, Silviano Huddleston NP, Last Rate: 200 mL/hr at 06/01/21 0525, 2,000 mg at 06/01/21 0525 ??? clopidogreL (PLAVIX) tablet 75 mg, 75 mg, oral, Daily, Silviano Huddleston NP, 75 mg at 06/01/21900 ??? dapagliflozin (FARXIGA) tablet 10 mg, 10 mg, oral, Daily, Silviano Huddleston NP, 10 mg at 06/01/21 09 ??? dextrose oral liquid liquid 15 g, 15 g, oral, Q15 Min PRN OR dextrose (D10W) 10% bolus 250 mL, 250 mL, intravenous, Q15 Min PRN, Silviano Huddleston NP ??? dextrose oral liquid liquid 15 g, 15 g, oral, Q15 Min PRN OR [DISCONTINUED] dextrose (D10W)10% bolus 250 mL, 250 mL, intravenous, Q15 Min PRN, Anibal Lara MD ??? enoxaparin (LOVENOX) syringe 40 mg, 40 mg, subcutaneous, Daily-2100, Silviano Huddleston NP, 40 mg at 05/31/21 2200 ??? glucagon injection 1 mg, 1 mg, intramuscular, Q30 Min PRN, Silviano Huddleston NP ??? guaiFENesin (ROBITUSSIN) 20 mg/mL oral liquid 200 mg, 200 mg, oral, QID PRN, Silviano Huddleston NP, 200 mg at 05/25/21 2353 ??? insulin lispro (HumaLOG, ADMELOG) 100 unit/mL injection 0-10 Units, 0-10 Units, subcutaneous, TID with meals, Silviano Huddleston NP, 2 Units at 06/01/21 1147 ??? insulin lispro (HumaLOG, ADMELOG) 100 unit/mL injection 0-5 Units, 0-5 Units, subcutaneous, Nightly, Silviano Huddleston NP, 1 Units at 05/31/21 2200 ??? midodrine (PROAMATINE) tablet 15 mg, 15 mg, oral, TID, Silviano Huddleston NP, 15 mg at 06/01/21 0900 ??? ondansetron (ZOFRAN) injection 4 mg, 4 mg, intravenous, Q6H PRN, Silviano Huddleston NP ??? pantoprazole DR (PROTONIX) extended release tablet 40 mg, 40 mg, oral, Daily, Silviano Huddleston NP, 40 mg at 06/01/21 0901 ??? polyethylene glycol (MIRALAX) packet 17 g, 17 g, oral, Q12H, Silviano Huddleston NP, 17 g at 06/01/21 0902 ??? QUEtiapine (SEROquel) tablet 50 mg, 50 mg, oral, Nightly, Silviano Huddleston NP, 50 mg at 05/31/21 2149 ??? senna-docusate (PERICOLACE) 8.6-50 mg per tablet 2 tablet, 2 tablet, oral, Q12H, Silviano Huddleston NP, 2 tablet at 06/01/21 0901 ??? sodium bicarbonate tablet 1,300 mg, 1,300 mg, oral, BID, Silviano Huddleston NP, 1,300 mg at 06/01/21 0901 ??? sodium chloride 0.9% flush 0.5-20 mL, 0.5-20 mL, intra-catheter, Q8H LEAH, Silviano Huddleston, ESCROW CLERK, 10 mL at 06/01/21 0526 ??? vancomycin (VANCOCIN) 1,750 mg in sodium chloride 0.9% 500 mL IVPB, 1,750 mg, intravenous, Q12H, Silviano Huddleston, ESCROW CLERK, Last Rate: 258.8 mL/hr at 06/01/21 0645, 1,750 mg at 06/01/21 0645 Lab/Radiology/Diagnostic Review: Recent Results (from the past 24 hour(s)) POCT glucose Collection Time: 05/31/21 6:05 PM Result Value Ref Range Glucose, POC 138 70 - 199 mg/dL POCT glucose Collection Time: 05/31/21 9:47 PM Result Value Ref Range Glucose, POC 171 70 - 199 mg/dL POCT glucose Collection Time: 06/01/21 2:52 AM Result Value Ref Range Glucose, POC 114 70 - 199 mg/dL POCT glucose Collection Time: 06/01/21 6:30 AM Result Value Ref Range Glucose, POC 116 70 - 199 mg/dL Phosphorus Collection Time: 06/01/21 11:32 AM Result Value Ref Range Phosphorus, pl 2.6 2.3 - 4.5 mg/dL Magnesium Collection Time: 06/01/21 11:32 AM Result Value Ref Range Magnesium 1.7 1.4 - 2.5 mg/dL CBC without differential Collection Time: 06/01/21 11:32 AM Result Value Ref Range WBC 16.3 (H) 3.8 - 9.9 K/cumm Hgb 10.3 (L) 13.0 - 17.5 g/dL Hct 33.0 (L) 38.9 - 50.3 % Plt 508 (H) 150 - 400 K/cumm MPV 11.4 9.1 - 12.3 fL RBC 3.50 (L) 4.30 - 5.80 M/cumm MCV 94.3 81.3 - 96.4 fL MCH 29.4 27.1 - 33.3 pg MCHC 31.2 (L) 32.3 - 35.7 g/dL RDW CV 14.5 11.1 - 14.9 % RDW SD 48.3 (H) 35.7 - 48.1 fL NRBC abs 0.00 0.00 - 0.01 K/cumm Basic metabolic panel Collection Time: 06/01/21 11:32 AM Result Value Ref Range Sodium 135 135 - 145 mmol/L Potassium, pl 3.8 3.3 - 4.9 mmol/L Chloride 101 97 - 110 mmol/L CO2 20 (L) 22 - 32 mmol/L Anion gap 14 2 - 15 mmol/L BUN 13 8 - 25 mg/dL Creatinine 0.47 (L) 0.80 - 1.30 mg/dL Glucose 144 70 - 199 mg/dL Calcium 8.7 8.5 - 10.3 mg/dL eGFR Collection Time: 06/01/21 11:32 AM Result Value Ref Range eGFR 120 mL/min/1.73 m2 POCT glucose Collection Time: 06/01/21 11:45 AM Result Value Ref Range Glucose, POC 155 70 - 199 mg/dL Recent Labs Lab Units 05/26/21 1601 CLARITY U Clear COLOR U Yellow KETONES UR Negative NITRITE UR Negative SPEC GRAV U 1.028 UROBILINOGEN UR mg/dL <2.0 WBC UR QT /HPF 11-* XR Chest 1 View - Portable - in AM Result Date: 05/11/2021 Narrative: EXAMINATION: XR CHEST 1 VIEW HISTORY: The patient is a 60-year-old male who has had cardiac surgery. Comparison made with the previous study dated 05/10/2021. TECHNIQUE: AP portable view of the chest. FINDINGS: Lungs clear. Heart not enlarged. Aortic atherosclerosis. No failure. The right IJ [place] catheter has been retracted with its tip in the distal superior vena cava. Impression: IMPRESSION: No failure. Electronically signed by: Elvira Blackman M.D. XR Chest 1 View - Portable - in AM Result Date: 05/10/2021 Narrative: EXAMINATION: XR CHEST 1 VIEW DATE: 05/10/2021 2:40 AM COMPARISON: 05/09/2021 HISTORY: 60-year-old man cardiac surgery follow-up FINDINGS:Compared with study the previous day, significant improvement. There is cardiomegaly with postsurgical changes with continued and decreasing failure. Bibasilar atelectasis with left pleural fluid decreasing. No pneumothorax. [place] catheter remainsin place Impression: Decreasing failure, atelectasis and left effusion. Electronically signed by: Deandre Lomeli M.D. XR Chest 1 View - Portable - in AM Result Date: 05/09/2021 Narrative: EXAMINATION: XR CHEST 1 VIEW DATE: 05/09/2021 4:10 AM HISTORY: 60-year-old man cardiac surgery follow-up FINDINGS:Compared with study the previous day, significant improvement. There is cardiomegaly with postsurgical changes with continued but decreasing failure. Bibasilar atelectasis with left pleural fluid decreasing. No pneumothorax. [place] catheter remains in place Impression: Decreasing failure, atelectasis and left effusion. Electronically signed by: Deandre Lomeli M.D. XR Chest 1 View - Portable - in AM Result Date: 05/08/2021 Narrative: EXAMINATION: XR CHEST 1 VIEW DATE: 05/08/2021 4:15 AM HISTORY: 60-year-old man cardiac surgery follow-up FINDINGS:Compared with study the previous day, significant improvement. There is cardiomegaly with postsurgical changes with continued but decreasing failure. Bibasilar atelectasis with left pleural fluid. No pneumothorax. [place] catheter remains in place Impression: Decreasing failure. No pneumothorax. Electronically signed by: Deacon Cummings M.D. XR Chest 1 View - Portable - in AM Result Date: 05/07/2021 Narrative: EXAMINATION: XR CHEST 1 VIEW DATE: 05/07/2021 3:55 AM HISTORY: 60-year-old man follow-upcardiac surgery FINDINGS:Compared with study of the previous day, postsurgical changes in the heartand mediastinum with cardiomegaly are stable. [place] catheter remains in place. Left thoracostomy tube remains in place. No pneumothorax. Pulmonary vascular congestion with interstitial lung disease remain prominent. Impression: Persistent prominent interstitial lung disease with failure. Electronically signed by: Deacon Cummings M.D. XR Chest 1 View - Portable - in AM Result Date: 05/06/2021 Narrative: EXAMINATION: XR CHEST 1 VIEW DATE: 05/06/2021 4:05 AM INDICATION: Cardiac surgery. COMPARISON: 05/05/2021. FINDINGS: No pneumothorax or pleural effusion. Similar-appearing pulmonary vascular congestion and interstitial opacities most notable in the bilateral upper lobes consistent with pulmonary edema. Pulmonary catheter catheter, left thoracostomy tube, and mediastinal drain are appropriately position. Intra-aortic balloon pump is appropriately positioned. Interval removal of endotracheal tube. Impression: 1. Interval removal of endotracheal tube. Remaining tubes and lines are appropriately positioned. 2. Similar-appearing cardiomegaly, pulmonary vascular congestion, and prominent bilateralinterstitial markings suggestive of interstitial pulmonary edema. Electronically signed by: Richard Zhao II, D.O. XR Chest 1 View - Portable - in AM Result Date: 05/05/2021 Narrative: EXAMINATION: XR CHEST 1 VIEW DATE: 05/05/2021 4:15 AM HISTORY: 60-year-old man cardiac surgery follow-up FINDINGS:Compared with the study of the prior day, tubes and catheters remain satisfactorily positioned. Worsening pulmonary vascular congestive changes are seen. Cardiomegaly with postsurgical changes stable. No pneumothorax. Impression: Increasing failure. Electronically signed by: Deacon Cummings M.D. XR Chest 1 Vw Portable Result Date: 05/05/2021 Narrative: EXAMINATION: XR CHEST 1 VIEW DATE: 05/04/2021 8:40 PM HISTORY: 60-year-old man coronary artery bypass follow-up FINDINGS:Compared with the study of earlier the same day, postsurgical changes now evident within the heart and mediastinum with cardiomegaly. Interval placement of endotracheal tube, nasogastric tube, [place] catheter, left thoracostomy tube and mediastinal drain all in satisfactory position. No pneumothorax. Interstitial lung disease with mild pulmonary vascular congestive changes. Aortic balloon pump is no longer seen. Impression: Tube placements with postsurgical changes with cardiomegaly with interstitial lung disease and mild failure with no pneumothorax. Electronically signed by: Deacon Cummings M.D. XR Chest 1 Vw Portable Result Date: 05/04/2021 Narrative: EXAMINATION: XR CHEST 1 VIEW DATE: 05/04/2021 9:05 AM HISTORY: Coronary artery disease FINDINGS:Comparison is made with study of 2 days earlier. Cardiomegaly, COPD with interstitial lung disease stable. Mild failure. Aortic balloon pump stable in position at the proximal descending aorta. No pneumothorax. No new infiltrates. Impression: Stable appearance. COPD cardiomegaly, with mild failure suspected. Electronically signed by: Deacon Cummings M.D. XR Chest 1 Vw Portable Result Date: 05/02/2021 Narrative: EXAMINATION: XR CHEST 1 VIEW DATE: 05/02/2021 5:15 AM INDICATION: Intra-aortic balloon pump. COMPARISON: 05/01/2021. FINDINGS: Appropriately positioned intra-aortic balloon pump appears unchanged. No pneumothorax or pleural effusion. Mixed reticular and alveolar opacities demonstrated inall lung lobes appear most significant in the upper lobes and perihilar regions, unchanged. Impression: 1. Appropriately positioned intra-aortic balloon pump. 2. Similar mixed reticular and alveolar opacities most notable in the bilateral upper lobes and perihilar region. Electronically signed by: Richard Lopez II, D.O. XR Chest 1 Vw Portable Result Date: 05/02/2021 Narrative: EXAMINATION: XR CHEST 1 VIEW DATE: 05/01/2021 8:15 PM INDICATION: Hypoxia. COMPARISON: None. FINDINGS: No pneumothorax. No pleural effusion. Mixed reticular and alveolar opacities are demonstrated in all lung lobes but demonstrate an upper lobe and perihilar predominance. Findings may represent pulmonary edema on background of centrilobular emphysematous changes. Underlying infectious process not entirely excludable. Cardiac mediastinal silhouette is stable in appearance. No acute osseous abnormality. Impression: Mixed reticular and alveolar opacities are demonstrated in all lung lobes but demonstrate an upper lobe and perihilar predominance. Findings may represent pulmonary edema on background ofcentrilobular emphysematous changes. Electronically signed by: Richard Lopez II, D.O. Transthoracic Echo (TTE) Limited Result Date: 05/07/2021 Narrative: [place] [address] Limited Echocardiogram Report Patient Name: DEEPAK ALVARADO : 1960 StudyDate: 05/07/2021 12:16:52 PM Gender: M Tech: Location: [id number] Ref.Provider: RHINA GRANADOS Height(Cm): 175 BSA: 2.1 Weight(Kg): 91 Heart Rate: 82 BP: 127/44 Quality: Good Order Provider: Dr. Sutton Procedures: Echocardiographic Report: Limited transthoracic echocardiogram with 2D and M-Mode. Measurements: 2D/M Mode Measurement Value Normal Range LVIDd 2D 3.43 [ 4.20 -5.90 ] cm LVIDs 2D 2.59 [ 2.30 - 3.90 ] cm LVPWd 2D 1.01 [ 0.60 - 1.00 ] cm IVSd 2D 0.71 [ 0.60 - 0.90 ] cm Findings: Left Ventricle: Reduced left ventricular cavity size. Mild global left ventricular systolic dysfunction. Ejection fraction is measured at 42 %. These segments of the LV are hypokinetic: apical anterior segment. Pericardium: Trivial pericardial effusion. No echocardiographic evidence to suggest pericardial tamponade. Conclusions: Reduced left ventricular cavity size. Mild global left ventricular systolic dysfunction. Ejection fraction is measured at 42 %. These segments of the LV are hypokinetic: apical anterior segment. Trivial pericardial effusion. No echocardiographic evidence to suggest pericardial tamponade. Electronically Signed By: Gianni Francois MD, [facility] :54:09 STAFF FORESTER Transthoracic Echo Complete W Doppler/CF Result Date: 05/02/2021 Narrative: [place] [address] Echocardiogram Report Patient Name: DEEPAK ALVARADO W : 1960 Study Date: 05/02/2021 8:50:02 AM Gender: M Tech: Location: [id number] Ref Provider: NALINI CLAYTONHeight(Cm): 175 BSA: 2.11 Weight(Kg): 92 Heart Rate: 89 BP: 102/52 Quality: Good Order Provider: NALINI CLAYTON PROCEDURES: Echocardiographic Report: Transthoracic echocardiogram with complete 2D, M-Mode, and color Doppler examination. INDICATIONS: Free Text. Measurements: 2D/M Mode Doppler Measurement Value Normal Range Measurement Value Normal Range EF Teich 2D 30.0 [ 55.0 - 70.0 ] percent CHRISTINA Vmax 2.04 [ 2.00 - 4.00 ] cm2 EF Mod 4C 42.2 [ 55.0 - 70.0 ] percent AV Mean PG 5 [ 2 - 4 ] mmHg LVIDd 2D 4.54 [ 4.20 - 5.90 ] cm AV Peak Ramesh 1.54 [ 1.00 - 1.70 ] m/s LVIDs 2D 3.91 [ 2.30 - 3.90 ] cm AV VTI 26.93 cm LVPWd 2D 0.92 [ 0.60 - 1.00 ] cm LVOT Diam 2.20 [ 1.70 - 2.10 ] cm IVSd 2D 0.76 [ 0.60 - 0.90 ] cm LVOT Peak Ramesh 0.83 [ 0.70 - 1.10 ] m/s LA Dimension MM 5.08 [ 3.00 - 4.00 ] cm LVOT VTI 13.82 [ 20.00 - 30.00 ] cm AoR Diam MM 4.12 [ 2.60 - 3.70 ] cm MV E Peak Ramesh 0.85 [ 0.60 - 1.30 ] m/s LA Volume Index 20.83 [ 16.00 - 28.00 ] cc/m2 MV A Peak Ramesh 1.14 [ 1.00 - 1.20 ] m/s ACS MM 1.91 [ 1.50 - 2.60 ] cm MV Mean PG 1 [ <= 5 ] mmHg MV PHT 43 [ 20 - 100 ] msec MVA 2.20MV Decel Time 137 [ 104 - 258 ] msec PV Peak Ramesh 1.10 [ 0.40 - 0.80 ] m/s TR Peak Ramesh 1.32 [ 1.00 - 2.80 ] m/s TR Peak PG 7 mmHg RVSP 16.93 [ 10.00 - 36.00 ] mmHg E' 0.06 E/E' 14.00 Measurement Value Normal Range Measurement Value Normal Range 2D/M Mode Doppler - FINDINGS: Atrial Septum: Normal atrial septum. Left Ventricle: Normal left ventricular size. Left ventricle not well visualized. There is severe hypokinesis of the mid anteroseptal, anterior, and apical mancilla. Normal left ventricular wall thickness. Impaired diastolic relaxation Grade I. Ejection fraction is visually estimated at 40 %. Left Atrium: The left atrium is normal in size. Right Ventricle: Normal right ventricular size. Normal right ventricular systolic function. Right Atrium: The right atrium is normal in size. Aortic Valve: Normal structure of the aortic valve. No evidence of hemodynamically significant aortic stenosis by Doppler. No aortic regurgitation. Mitral Valve: Normal structure of the mitral valve. Tri vial regurgitation of the mitral valve. Pulmonic Valve: Pulmonic valve not well visualized. Trivialregurgitation in the pulmonic valve. Tricuspid Valve: Normal structure of the tricuspid valve. Trivial regurgitation in the tricuspid valve. Pericardium: Normal pericardium with no significant pericardial effusion. Aorta: Normal aortic root. IVC: Normal size and normal respiratory collapse consistent with normal right atrial pressure (<5 mmHg). CONCLUSIONS: Technically difficult study with limited views. Normal left ventricular size. Left ventricle not well visualized. There is severe hypokinesis of the mid anteroseptal, anterior, and apical amncilla. Normal left ventricular wall thickness. Impaired diastolic relaxation Grade I. Ejection fraction is visually estimated at 40 %. Normal right ventricular size. Normal right ventricular systolic function. Normal structure of the mitral valve. Trivial regurgitation of the mitral valve. Normal structure of the tricuspid valve. Trivial regurgitation in the tricuspid valve. Electronically Signed By: Rylee Brito, , FACJustyna, VILMA, FAISAL 2021-05-02 14:07:25 STAFF FORESTER CC: CC: CC: ASSESSMENT/PLAN Hyponatremia from SIADH and possibly from zaroxylyn use. Work up for hyponatremia ongoing. PO FR If in clinical fluid overload, can use tolvaptan. Renal fn is better. Na better with loop diuresis, use PRN. Daily BMP. Na 135 and acceptable. Midodrine for hypotension. DC lisinopril. NAGMA noted Increase oral bicarb ?? Recent bladder tumor removal with hematuria. ?? -??Urology is following.H/H stable -Cysto vs conservative tx. -Voiding trial, hematuria has stopped. -Epistaxis Use nasal pillows. -CHF with decompensation Continue diuresis, diuretics stopped by audio director. RHC not done. Agree with Corlanor. ?? Hypokalemia from diuresis. Replace PRN. ?? 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 COVID positive. Per protocol. On Remdisivir and Dex, course completed. Resp failure Acute on chronic, needs close monitoring, still on high flow oxygen. ?? Syncopal episode -(+) orthostasis -receiving albumin -IV lasix was discontinued. ??There is a 1x order for zaroxolyn 10mg this am- recommend holding fornow. ??D/w RN ?? Coronary artery disease -s/p CABG post STEMI -??underwent four-vessel bypass ??MAE to the LAD, sequential saphenous vein graft to diagonal and obtuse marginal and a vein graft to the PDA. -s/p??low dose dobutamine -paced rhythm ?? Moderate LV dysfunction -s/p IV??lasix??and??low dose??dobutamine -Beta blockers, ??[place] once off dobutamine-would hold off adding given syncopal episode this am -repeat ECHO 05/07 EF 42% (see above) ?Nonsustained ventricular tachycardia -no recurrence of VT -K 3.7, Mg??2.0. ??Supplement to keep K >/= 4.0, Mg >/= 2.0 ?Diabetes mellitus -?on lantus and SSI ?? COPD: ?? -on?O2 NC??4L (dried blood to L nare humidified o2 ordered) ?? Dyslipidemia -?Continue atorvastatin. ?PAD -?Stable ? Anemia -Hb??11.4 (10.5)??(8.6) -monitor ?? I can be reached at [phone] with any concerns. Thank you Rhina Granados MD for the consult. Yves Weinberg MD [employer] [phone] F FORESTER * Roya Marquez, COMPRESSOR HOUSE OPERATOR - 06/01/2021 11:26 AM CST Physical Therapy PT PROGRESS NOTE Deepak Giovany Alvarado 60 y.o. 1960 Past Medical History: Diagnosis Date ??? Chronic obstructive pulmonary disease (CMS/HCC) (HCC) COPD ??? Coronary artery disease ??? Diabetes mellitus (HCC) ??? H/O heart artery stent 2006 ??? Hypertension Hypertension ??? ST elevation (STEMI) myocardial infarction (HCC) 05/01/2021 History reviewed. No pertinent surgical history. Patient Active Problem List Diagnosis ??? ST elevation myocardial infarction (STEMI) (HCC) TIME IN: 11:26 TIME OUT: 11:57 SUBJECTIVE Patient stated I want coffee. I have been asking for it and nobody has brought any. (I brought coffee to him at end of tx.) Patient initially refused therapy but easily coaxed into participation MENTAL STATUS/ORIENTATION: Alert and oriented x4 PAIN: Pre-therapy pain level: 0/10 Pain location: NA Pain intervention: NA Post-therapy pain level/response to intervention: 0/10 OBJECTIVE PRECAUTIONS: Fall, chair alarm, air borne isolation COVID 19+ APPEARANCE/POSTURE: Patient sitting in b/s chair w/chair alarm in place and activated VITAL SIGNS: Resting heart rate: 100 Post-activity heart rate: 104 Resting O2 sat: 97% on 6L/HFNC Post-activity O2 sat: 92% however difficult getting reading MOBILITY DOCUMENTATION: Bed Mobility/Transfers: Bed mobility-NT Transfers- sit to/from stand w/SBA w/decreased safety Gait: Patient ambulated 40'x1 w/CGA w/slow isabell, decreased step length TREATMENT: Attempted ex's but patient did not want to perform APPEARANCE/POSTURE (end of session): Patient sitting in b/s chair w/chair alarm in place and activated EDUCATION: Transfers, gait, increasing activity, sternal precautions RESPONSE TO EDUCATION: needs reinforcement and verbalizes understanding ASSESSMENT Activity tolerance/response to P.T.: Patient tolerated therapy w/o complaints. Barriers to learning: Physical Barriers to discharge: Limited safety awareness, Limited participation, Decreased endurance, Lower extremity weakness and Medical complications Patient continues progressing toward previously set goals which remain appropriate at this time. PLAN Patient to be seen for P.T. 3/5 times per week to address previously established deficits and goals. DISCHARGE LOCATION RECOMMENDATIONS: [facility] If this is the last note, please consider this the discharge summary. F FORESTER * Lc Simons MD - 06/01/2021 11:05 AM CST General Medicine Daily Progress Patient is a 60 y.o. male who presented with a chief complaint of chest pain. Interval History: Subjective: No complaints. Eating. Currently on 5L O2 Objective: Vitals: 24hr Min/Max: Temp Min: 36.3 ??C (97.4 ??F) Max: 37.1 ??C (98.7 ??F) Pulse Min: 87 Max: 108 BP Min: 96/53 Max: 132/87 Resp Min: 14 Max: 24 SpO2 Min: 91 % Max: 98 % Most Recent : Vitals: 06/01/21 0400 06/01/21 0735 06/01/21 0800 06/01/21 0813 BP: 113/71 BP Location: Patient Position: Pulse: 88 93 90 Resp: 18 Temp: 36.3 ??C (97.4 ??F) TempSrc: SpO2: 96% 97% Weight: Height: I/O last 2 completed shifts: In: 0 Out: 2480 [Urine:2480] No intake/output data recorded. Physical Exam: Gen: In no apparent distress Neuro: Alert, oriented in time place and person. weakness. Pulmonary: Not dyspneic. No crackles or rhonchi. Cardiovascular: HS 1, 2 . regular rhythm. No murmurs heard. No JVD, No lower extremity edema. GI: abdomen not distended, soft, non-tender. Musculoskeletal: No joint swelling, tenderness or warmth. : Osorio catheter in place. Blood stained urine in urine bag Current Meds: albuterol HFA, 8 puff, inhalation, Q4H While awake (RT) aspirin, 81 mg, oral, Daily atorvastatin, 80 mg, oral, Nightly carvediloL, 3.125 mg, oral, BID with meals (bkfst, dinner) cefepime, 2,000 mg, intravenous, Q12H clopidogreL, 75 mg, oral, Daily dapagliflozin, 10 mg, oral, Daily enoxaparin, 40 mg, subcutaneous, Daily-2100 insulin lispro, 0-10 Units, subcutaneous, TID with meals insulin lispro, 0-5 Units, subcutaneous, Nightly midodrine, 15 mg, oral, TID pantoprazole DR, 40 mg, oral, Daily polyethylene glycol, 17 g, oral, Q12H QUEtiapine, 50 mg, oral, Nightly senna-docusate, 2 tablet, oral, Q12H sodium bicarbonate, 1,300 mg, oral, BID sodium chloride 0.9%, 0.5-20 mL, intra-catheter, Q8H LEAH vancomycin, 1,750 mg, intravenous, Q12H PRN Medications Medication Dose Route Frequency Last Admin ??? acetaminophen (TYLENOL) tablet 650 mg 650 mg oral Q6H PRN 650 mg at 05/29/21 1429 ? ? al & mag hydroxide cwsqpepdtbe-vpgbxvqusdhonuc-bhhyrapid-nystatin (MAGIC MOUTHWASH) suspension 1-1-1-1 20 mL swish & spit Q4H PRN ??? albuterol 2.5 mg /3 mL (0.083 %) nebulizer solution 2.5 mg 2.5 mg nebulization Q4H PRN (RT) 2.5mg at 05/17/21 0224 ??? dextrose oral liquid liquid 15 g 15 g oral Q15 Min PRN Or ??? dextrose (D10W) 10% bolus 250 mL 250 mL intravenous Q15 Min PRN ??? dextrose oral liquid liquid 15 g 15 g oral Q15 Min PRN ??? glucagon injection 1 mg 1 mg intramuscular Q30 Min PRN ??? guaiFENesin (ROBITUSSIN) 20 mg/mL oral liquid 200 mg 200 mg oral QID PRN 200 mg at 05/25/21 2353 ??? ondansetron (ZOFRAN) injection 4 mg 4 mg intravenous Q6H PRN Lab/Radiology/Diagnostic Review: Recent Labs Lab Units 05/31/21 0539 05/30/21 0405 05/29/21 0528 WBC K/cumm 18.4* 14.4* 16.1* HEMOGLOBIN g/dL 10.4* 10.0* 10.1* HEMATOCRIT % 32.1* 29.8* 31.3* MCV fL 92.8 92.3 91.8 PLATELETS K/cumm 470* 467* 508* Recent Labs Lab Units 06/01/21 0630 06/01/21 0252 05/31/21 2147 05/31/21 0804 05/31/21 0539 05/30/21 0754 05/30/21 0405 05/29/21 0801 05/29/21 0528 SODIUM mmol/L -- -- -- -- 132* -- 131* -- 130* POTASSIUM PLASMA mmol/L -- -- -- -- 4.2 -- 4.0 -- 4.1 CHLORIDE mmol/L -- -- -- -- 102 -- 100 -- 101 CO2 mmol/L -- -- -- -- 18* -- 20* -- 18* ANIONGAP mmol/L -- -- -- -- 12 -- 11 -- 11 GLUCOSE mg/dL -- -- -- -- 118 < > 144 < > 105 POC GLUCOSE MONITOR mg/dL 116 114 171 < > -- < > -- < > -- BUN SERUM mg/dL -- -- -- -- 16 -- 20 -- 18 CREATININE mg/dL -- -- -- -- 0.46* -- 0.47* -- 0.38* CALCIUM mg/dL -- -- -- -- 8.7 -- 8.6 -- 8.6 MAGNESIUM mg/dL -- -- -- -- 2.0 -- 1.9 -- 1.8 < > = values in this interval not displayed. No results found for: BNP No results found for: TROPONINT Recent Labs Lab Units 05/26/21 1601 COLOR U Yellow CLARITY U Clear SPEC GRAV U 1.028 PH, URINE 7.0 PROTEIN UR QL Negative GLUCOSE URQL 3+* KETONES UR Negative BLOOD UR 2+* NITRITE UR Negative LEUKOCYTE ESTERASE UR 1+* Estimated Creatinine Clearance: 172.9 mL/min (A) (by C-G formula based on SCr of 0.46 mg/dL (L)). Patient Active Problem List Diagnosis Date Noted ??? ST elevation myocardial infarction (STEMI) ([facility]) 05/01/2021 Assessment/Plan: 1. Acute anterior STEMI: CAD, post LHC, post CABG 05/04, IABP p;aced, removed 05/06. CTS consulted.Continue ASA, statin, plavix, beta octavia 2. Acute hypoxemic respiratory failure: 2/ COVID-19. Transferred to ICU 05/17 for worsening hypoxemia/increased O2 requirements. CTPE neg for PE 3. chtonic systolic HF; EF 37% 4. COVID-19 PNA: completed remdesivoir, decadron. 5. Possible bacterial PNA: continue cefepime + vancomycin. ID consulted. 6. RSV +ve: respiratory precautions 7. Cardiogenic Shock, post CABG: resolved. was on levophed and dobutamine. 8. Gross hematuria: Posy cystoscopy, clot evacuation by urology on 05/14. TURBT at [place]. Osorio catheter in place. p 9. V.fib 05/03: brief. Received amiodarone, dobutamine gtt. 10. DM2: continue SSI 11. Acute blood loss anemia: received blood transfusion 12. Tobacco smoking Lc Simons MD [facility] Pager #: [phone] This note is dictated and transcribed by M*[employer] Direct direct software. Court Monitor variances may occur. Despite proof reading, typographical errors may occur. F FORESTER * Angelo Vance MD - 06/01/2021 10:50 AM CST Infectious Disease Deepak Alvarado Admit Date: 05/01/2021 LOS: 31 Days Subjective No new issues ROS Denies n/v/d/f/chills/sob/cp. States feeling better Anti-infectives (From admission, onward) Start Dose/Rate Route Frequency Ordered Stop 05/30/21 1718 cefepime (MAXIPIME) 2,000 mg in sodium chloride 0.9% 100 mL IVPB 2,000 mg 200 mL/hr over 30 Minutes intravenous Every 12 hours 05/30/21 1008 05/30/21 0600 vancomycin (VANCOCIN) 1,750 mg in sodium chloride 0.9% 500 mL IVPB 1,750 mg 258.8 mL/hr over 120 Minutes intravenous Every 12 hours 05/29/21 1919 06/04/21 0559 05/17/212115 al & mag hydroxide uuphkdtcbqq-nmgiafkfltzqcyp-tdjqjttrh-nystatin (MAGIC MOUTHWASH) suspension 1-1-1-1 20 mL swish & spit Every 4 hours PRN 05/17/212116 Data Vitals: 06/01/21 0400 06/01/21 0735 06/01/21 0800 06/01/21 0813 BP: 113/71 BP Location: Patient Position: Pulse: 88 93 90 Resp: 18 Temp: 36.3 ??C (97.4 ??F) TempSrc: SpO2: 96% 97% Weight: Height: Temp (24hrs), Av.6 ??C (97.9 ??F), Min:36.3 ??C (97.4 ??F), Max:37.1 ??C (98.7 ??F) Recent Labs Lab Units 05/31/21 0539 05/30/21 0405 05/29/21 0528 WBC K/cumm 18.4* 14.4* 16.1* HEMOGLOBIN g/dL 10.4* 10.0* 10.1* HEMATOCRIT % 32.1* 29.8* 31.3* PLATELETS K/cumm 470* 467* 508* Recent Labs Lab Units 05/31/21 0539 05/30/21 0405 05/30/21 0405 05/29/21 0528 05/29/21 0528 BUN SERUM mg/dL 16 -- 20 -- 18 CREATININE mg/dL 0.46* < > 0.47* < > 0.38* < > = values in this interval not displayed. Scheduled Meds:albuterol HFA, 8 puff, inhalation, Q4H While awake (RT) aspirin, 81 mg, oral, Daily atorvastatin, 80 mg, oral, Nightly carvediloL, 3.125 mg, oral, BID with meals (bkfst, dinner) cefepime, 2,000 mg, intravenous, Q12H clopidogreL, 75 mg, oral, Daily dapagliflozin, 10 mg, oral, Daily enoxaparin, 40 mg, subcutaneous, Daily-2100 insulin lispro, 0-10 Units, subcutaneous, TID with meals insulin lispro, 0-5 Units, subcutaneous, Nightly midodrine, 15 mg, oral, TID pantoprazole DR, 40 mg, oral, Daily polyethylene glycol, 17 g, oral, Q12H QUEtiapine, 50 mg, oral, Nightly senna-docusate, 2 tablet, oral, Q12H sodium bicarbonate, 1,300 mg, oral, BID sodium chloride 0.9%, 0.5-20 mL, intra-catheter, Q8H LEAH vancomycin, 1,750 mg, intravenous, Q12H Continuous Infusions: PRN Meds:.??? acetaminophen ? ? al & mag hydroxide seqvvrynozo-exiputkfbedmiuc-qbuojwdxe-nystatin ??? albuterol ??? dextrose OR dextrose ??? dextrose OR [DISCONTINUED] dextrose ??? glucagon ??? guaiFENesin ??? ondansetron Exam General appearance: alert, cooperative, no distress HEENT: (-)icterus, Oropharnyx is normal, NCAT Neck: No palpable LN Lungs: Course breath sounds and symmetric; minimal to moderate respiratory effort Heart: regular rhythm, normal S1 and S2, no m/r/g Abdomen: soft without mass, non-tender, +bowel sounds, no HSM Skin: (-)new rashes, no ulcerations MSK: no gross deformities, FROM Vascular: no Edema, pulses present bilaterally Neuro: No focal deficits Psych: Appropriate mood and affect ?? Cultures 05/02 COVID 19- 05/19 COVID 19 positive 05/26 blood cultures negative ?? 05/05 tracheal aspirate culture with yeast 05/26 pneumonia sputum culture PCR with Moraxella/Haemophilus/MRSA/rhino virus/enterovirus ?? Assessment: 1. Acute respiratory failure 2. COVID-19 infection 3. Status post CABG 4. Hematuria 5. Pneumonia 6. Rhino virus ?? Plan: 1. Continue vanc and cefepime until 06/05. Can dc on PO atbx if discharged earlier 2. Continue treatment for COVID per attending 3. Rhino virus may have been present on admission 4. Continue monitor labs and vs trends. Follow WBC 5. Continue supportive care Angelo Vance MD [place] Infectious Disease Call [phone] 06/01/2021 10:50 AM F FORESTER * Xiomy Hidalgo, RD - 06/01/2021 10:44 AM CST Nutrition Assessment Reason for Assessment: Follow Up Encounter Date: 06/01/21 10:44 AM Nutrition Assessment and Plan: Patient is a 60 y.o. male. Admit Dx: STEMI. Admitted on 05/01/2021, current LOS is 31 days. Pt did not answer phone call during time of assessment, unable to obtain further subjective information at this time. [facility] soft diet with varied intakes (average 81%,adequate). Will continue to send ONS to help meet increased nutritional needs d/t COVID+. Per boiler installer, last BM documented (05/28). Pt currently receiving scheduled medication of miralax. Consider more aggressive bowel regimen if current documentation is accurate. Pertinent labs: Vitamin D: 10 (L)- consider supplementing appropriately Current weight (05/29)-168# via bed scale, 05/20-175# via bed scale. Weights vary throughout limitedweight hx, difficult to monitor trend. Unable to obtain UBW at this time and noted weight changes. MST report=0, no report of poor PO intake or unintentional weight loss. Wt Readings from Last 10 Encounters: 05/29/21 76.3 kg (168 lb 3.4 oz) 08/27/13 114.3 kg (252 lb) 10/19/12 111.6 kg (246 lb) Current diet order: Adult Diet Modified Consistency; Mechanical Soft; Consistent Carb 2000 maggie Pt intake is adequate. PO intakes: 100%x9, 75%x4, 50%x1, 25%x2 [address] assessment (05/25) Supplement order: Ensure HP tid, 100%x1 last documented (05/30) Nutrition Diagnosis 1: Increased nutrient needs (protein) Related to: Acute illness/injury Evidenced by: Other (comment) (COVID-19+) ?? Interventions: Communication,Other (comment) (continue Ensure High Protein tid) ?? Monitoring and Evaluation: Appetite,Blood glucoses,Discharge plans,Labs,Plan of care,PO intake,Supplement tolerance,Weight changes ?? Goals: Adequate nutrition to meet estimated needs by next assessment,Diet consistency appropriate for patient needs during stay,Oral intake to meet 75% estimated nutritional needs by next assessment,Tolerance of medical food supplement by next assessment Estimated needs: ?? Total Kcal/kg Estimated Needs : based on Kcal/k. Type of Weight Used for Estimated Kcals: Current ?? [facility] Total Energy Needs: 2000.25 kcal using Activity Factor: 1.25 ?? [facility] Total Energy Needs + Fever Factor: 2001.25 ?? Total Protein Estimated Needs (gm): 103.35 Protein Needs Based on g/k.3 Type of Weight Used for Estimated Protein : Current. ?? Estimated Fluid Needs ?? Type of Weight Used for Estimated Fluid Needs: Current ?? Fluid Needs Based on : 1 ml/kcal ?? Total Fluid Estimated Needs: 0 Objective Anthropometrics Weight: 76.3 kg (168 lb 3.4 oz) Admission Weight : 86.2 kg Weight Change: -3.19 kg (-7.05 lbs) IBW/kg (Calculated) : 72.6 kg Height: 175.3 cm (5' 9.02 ) Weight in (lb) to have BMI = 25: 169 BMI (Calculated): 24.8 BMI Classification: BMI 25.0 - 29.9 Overweight 3 Day I/O Summary 05/30 1900 - 06/01 0659 In: 0 Out: 2970 [Urine:2970] Temp: 36.3 ??C (97.4 ??F) Minute Ventilation (L/min): 12.7 L/min Past Medical History: Diagnosis Date ??? Chronic obstructive pulmonary disease (CMS/HCC) (HCC) COPD ??? Coronary artery disease ??? Diabetes mellitus (HCC) ??? H/O heart artery stent 2006 ??? Hypertension Hypertension ??? ST elevation (STEMI) myocardial infarction (HCC) 05/01/2021 Medications and Lab Review: Scheduled Meds: albuterol HFA, 8 puff, inhalation, Q4H While awake (RT) aspirin, 81 mg, oral, Daily atorvastatin, 80 mg, oral, Nightly carvediloL, 3.125 mg, oral, BID with meals (bkfst, dinner) cefepime, 2,000 mg, intravenous, Q12H clopidogreL, 75 mg, oral, Daily dapagliflozin, 10 mg, oral, Daily enoxaparin, 40 mg, subcutaneous, Daily-2100 insulin lispro, 0-10 Units, subcutaneous, TID with meals insulin lispro, 0-5 Units, subcutaneous, Nightly midodrine, 15 mg, oral, TID pantoprazole DR, 40 mg, oral, Daily polyethylene glycol, 17 g, oral, Q12H QUEtiapine, 50 mg, oral, Nightly senna-docusate, 2 tablet, oral, Q12H sodium bicarbonate, 1,300 mg, oral, BID sodium chloride 0.9%, 0.5-20 mL, intra-catheter, Q8H LEAH vancomycin, 1,750 mg, intravenous, Q12H Continuous Infusions: Sodium Date Value Ref Range Status 05/31/2021 132 (L) 135 - 145 mmol/L Final Potassium, pl Date Value Ref Range Status 05/31/2021 4.2 3.3 - 4.9 mmol/L Final BUN Date Value Ref Range Status 05/31/2021 16 8 - 25 mg/dL Final Creatinine Date Value Ref Range Status 05/31/2021 0.46 (L) 0.80 - 1.30 mg/dL Final Phosphorus, pl Date Value Ref Range Status 05/31/2021 2.7 2.3 - 4.5 mg/dL Final Magnesium Date Value Ref Range Status 05/31/2021 2.0 1.4 - 2.5 mg/dL Final Calcium Date Value Ref Range Status 05/31/2021 8.7 8.5 - 10.3 mg/dL Final Lab Results Component Value Date HGBA1C 13.5 (H) 05/03/2021 Lab Results Component Value Date GLUCOSE 116 06/01/2021 GLUCOSE 114 06/01/2021 GLUCOSE 171 05/31/2021 GLUCOSE 138 05/31/2021 GLUCOSE 157 05/31/2021 GLUCOSE 118 05/31/2021 GLUCOSE 144 05/30/2021 Nursing Assessment: Last BM Date: 05/31/21 Bowel Sounds (All Quadrants): Active Emesis Assessment Emesis Color/Appearance: Brown Marko Scale Score: 18 Skin Integrity: Surgical incision Diet Instructions Recommend to eat a generally healthy diet that includes a variety of fruits, vegetables, whole-grain breads, low-fat dairy products, beans, lean meats, and fish. Avoid saturated and trans fats and limit sodium to less than 2,300 mg per day. Avoid foods like desserts, fast food, fried/breaded foods,deli meats, sausage, ruiz, and gravies/sauces. For a Consistent Carbohydrate Diet: Aim to consume 3 meals each day with 60-75 grams of carbohydrate at each one, avoid skipping meals. Avoid sugary drinks like lemonade, regular soda, gatorade, and sweet tea and drink water throughout the day.Monitor your blood sugar and take insulin and medication as directed by your doctor. Call [phone] to speak with a dietitian about any diet related concerns. Recommend to follow up with outpatient nutrition counseling, ask your doctor for a referral and call [phone] to make an appointment. Nutrition Follow-Up : 06/08/[address],LD F FORESTER * Shruthi Hu COTA - 06/01/2021 10:38 AM CST Occupational Therapy NOTE / SESSION TYPE: DAILY PROGRESS / TREATMENT Patient's Name: Deepak Alvarado Age / Sex: 60 y.o. / male Room: [id number] : 1960 Date of service: 06/01/21 TIME IN: 10:39 TIME OUT: 11:21 Patient Active Problem List Diagnosis ??? ST elevation myocardial infarction (STEMI) (HCC) Past Medical History: Diagnosis Date ??? Chronic obstructive pulmonary disease (CMS/HCC) (HCC) COPD ??? Coronary artery disease ??? Diabetes mellitus (HCC) ??? H/O heart artery stent 2006 ??? Hypertension Hypertension ??? ST elevation (STEMI) myocardial infarction (HCC) 05/01/2021 History reviewed. No pertinent surgical history. Precautions (including weight-bearing): Fall risk, Bed / chair alarm, Sternal precautions, Cardiac precautions, Contact isolation: RHINO/ENTEROVIRUS/COVID19 and Airborne precautions: COVID Subjective: PATIENT STATES, I'M READY TO BE OUT OF HERE. Therapy Pain: Pre-therapy pain level: 0 /10 Pain location: No pain - Location N/A Pain Intervention(s): No pain - Intervention N/A Post-therapy pain level: 0 /10 Pain scale reference: 0-10 SCALE Objective: Appearance: Presentation upon OT arrival: Patient Supine with head of bed elevated Presentation upon OT departure: Patient Sitting in bedside chair Bed / Chair alarm in place and activated upon OT departure: Yes Call light within arms reach of patient at end of session: Yes Completed patient handoff and notified MANAGER RENTAL / RN, name: SUZIE, of patient's location and functionalstatus upon completion of session VITAL SIGNS: Heart rate at rest: 90 BPM Heart rate with activity: 103 BPM O2 saturations at rest: 99 % O2 saturations with activity: 89-94 % Oxygen LPM: REMAINED ON 6 LPM OF O2 DURING ENTIRE MORNING SESSION WITH O2 LEVEL REMAINING ABOVE 89% Cognitive / Perceptual: FOLLOWED ONE-STEP COMMANDS WITHOUT ANY SIGNS OF DIFFICULTY Mobility / Transfers: Bed Mobility: MIN [id number] ASSIST FROM SUPINE WITH HOB ELEVATED > SEATED AT EOB WITH UTILIZATION OF LOG-ROLL TECHNIQUE TO MAINTAIN STERNAL PRECAUTIONS Transfer(s): CGA FROM SEATED AT EOB > STANDING AT EOB WITH [id number] ASSIST PER THERAPIST CGA/ [id number] ASSIST FROM STANDING AT EOB > SEATED AT BEDSIDE CHAIR WITH UTILIZATION OF NO DEVICE Living Skills / Other Activities: SHOWER / BATHE SELF TYPE OF BATHING: SPONGEBATHING LOCATION OF SHOWER / BATHE SELF: Sitting on EOB and Standing at EOB WITHOUT DEVICE VS. HAND-HELD ASSISTANCE TASKS COMPLETED: FACE, CHEST, ABDOMEN, RIGHT ARM, LEFT ARM, PERINEAL AREA, BUTTOCKS, LEFT UPPER LEGand RIGHT UPPER LEG COMPONENTS THAT REQUIRED ASSISTANCE (IF APPLICABLE): NONE OVERALL ASSIST LEVEL: INCIDENTAL TOUCHING ASSISTANCE ADAPTIVE EQUIPMENT (IF APPLICABLE): no assistive device ADDITIONAL DOCUMENTATION: PATIENT UTILIZED LEG-CROSSOVER TECHNIQUE TO BATHE BLEs EXCLUDING BILATERAL FEET PER PATIENT REQUEST. REQUIRED CGA WHILE STANDING AT EOB WITHOUT DEVICE VS. HAND-HELD ASSISTANCE TO COMPLETE BUTTOCK COMPONENTS UE DRESSING LOCATION OF UE DRESSING: Sitting on EOB TASKS COMPLETED: Hospital gown OVERALL ASSIST LEVEL: PARTIAL / MODERATE ASSISTANCE: LESS THAN HALF (1% - 49%) ADDITIONAL DOCUMENTATION: REQUIRED MAX ASSIST TO UNTIE/TIE GOWNS IN BACK WHEN DOFFING/DONNING HOSPITAL GOWNS D/T PATIENT REFUSING TO ADDRESS TASK COMPONENTS GROOMING TASKS (INCLUDING ORAL HYGIENE) LOCATION OF GROOMING TASKS: Sitting in bedside chair / recliner TASKS COMPLETED: COMBING HAIR and APPLYING DEODORANT OVERALL ASSIST LEVEL: SUPERVISION ASSISTANCE / VERBAL CUES ADDITIONAL DOCUMENTATION: PATIENT APPLIED DEODORANT TO BUEs AND COMBED HAIR WITH SPV THIS A.M. D/T PATIENT SUCCESSFULLY MAINTAINING STERNAL PRECAUTIONS DURING COMPLETION OF TASKS Caregiver Present: No Education & Training Provided: Role of OT, OT plan of care, ADL training, Compensatory ADL strategies, Bed mobility training, Functional transfer training, Balance training, Safety education and STERNAL AND CARDIAC precautions Assessment: Activity tolerance / response to OT session: GOOD PARTICIPATION, GOOD MOTIVATION and RECEPTIVE TO EDUCATION / TRAINING Progress towards goals: Please refer to care plan from this date for progress towards individual goals Plan: Therapy Plan: Rehab Potential (Prognosis): good OT Recommendations This Date: Location: Inpatient rehabilitation pending qualify criteria Supervision: 24 hour Follow-up Therapy Recommendations: SKILLED OT IN INPATIENT REHABILITATION SETTING OT Consultation in Regards to Discharge Recommendations: N/A Frequency of therapy: 3-5 times / week If this is the last note, consider this the discharge summary CAITIE Tinsley 06/01/21 Cosigned by Chiara Fonseca OT at 06/01/2021 5:18 PM STAFF FORESTER F FORESTER F FORESTER F FORESTER * Shima Paulson NP - 06/01/2021 9:20 AM CST Daily Progress SUBJECTIVE: Mr. Alvarado lying in bed comfortably, denies cp, sob, palpitations or dizziness. +Cough, weakness. OBJECTIVE: Vitals: 06/01/21 0352 06/01/21 0400 06/01/21 0735 06/01/21 0813 BP: 108/67 113/71 BP Location: Left arm Patient Position: Lying Pulse: 89 88 93 Resp: 20 18 Temp: 37.1 ??C (98.7 ??F) 36.3 ??C (97.4 ??F) TempSrc: Oral SpO2: 94% 96% 97% Weight: Height: Intake/Output Summary (Last 24 hours) at 06/01/2021 0920 Last data filed at 06/01/2021 0655 Gross per 24 hour Intake 0 ml Output 1850 ml Net -1850 ml Scheduled Medications Medication Dose Route Frequency ??? albuterol HFA (PROVENTIL HFA,VENTOLIN HFA,PROAIR HFA) 90 mcg/actuation inhaler 8 puff 8 puff inhalation Q4H While awake (RT) ??? aspirin enteric coated tablet 81 mg 81 mg oral Daily ??? atorvastatin (LIPITOR) tablet 80 mg 80 mg oral Nightly ??? carvediloL (COREG) tablet 3.125 mg 3.125 mg oral BID with meals (bkfst, dinner) ??? cefepime (MAXIPIME) 2,000 mg in sodium chloride 0.9% 100 mL IVPB 2,000 mg intravenous Q12H ??? clopidogreL (PLAVIX) tablet 75 mg 75 mg oral Daily ??? dapagliflozin (FARXIGA) tablet 10 mg 10 mg oral Daily ??? enoxaparin (LOVENOX) syringe 40 mg 40 mg subcutaneous Daily-2100 ??? insulin lispro (HumaLOG, ADMELOG) 100 unit/mL injection 0-10 Units 0-10 Units subcutaneous TID with meals ??? insulin lispro (HumaLOG, ADMELOG) 100 unit/mL injection 0-5 Units 0-5 Units subcutaneous Nightly ??? midodrine (PROAMATINE) tablet 15 mg 15 mg oral TID ??? pantoprazole DR (PROTONIX) extended release tablet 40 mg 40 mg oral Daily ??? polyethylene glycol (MIRALAX) packet 17 g 17 g oral Q12H ??? QUEtiapine (SEROquel) tablet 50 mg 50 mg oral Nightly ??? senna-docusate (PERICOLACE) 8.6-50 mg per tablet 2 tablet 2 tablet oral Q12H ??? sodium bicarbonate tablet 1,300 mg 1,300 mg oral BID ??? sodium chloride 0.9% flush 0.5-20 mL 0.5-20 mL intra-catheter Q8H LEAH ??? vancomycin (VANCOCIN) 1,750 mg in sodium chloride 0.9% 500 mL IVPB 1,750 mg intravenous Q12H LABS: Recent Labs Lab Units 05/31/21 0539 WBC K/cumm 18.4* HEMOGLOBIN g/dL 10.4* HEMATOCRIT % 32.1* PLATELETS K/cumm 470* Recent Labs Lab Units 06/01/21 0630 05/31/21 0804 05/31/21 0539 SODIUM mmol/L -- -- 132* POTASSIUM PLASMA mmol/L -- -- 4.2 CHLORIDE mmol/L -- -- 102 CO2 mmol/L -- -- 18* ANIONGAP mmol/L -- -- 12 GLUCOSE mg/dL -- -- 118 POC GLUCOSE MONITOR mg/dL 116 < > -- BUN SERUM mg/dL -- -- 16 CREATININE mg/dL -- -- 0.46* CALCIUM mg/dL -- -- 8.7 < > = values in this interval not displayed. No results found for: BNP No results found for: TROPONINI Exam General: weak Neuro: Alert and oriented x 3, moves all extremities well HEENT: normocephalic, atraumatic Lungs: symmetric, unlabored, clear to auscultation bilaterally Heart: S1,S2, regular rate & rhythm, no murmurs, rubs, or gallops Abdomen: soft, non-tender, non-distended, bowel sounds present Extremities: no LE edema, palpable peripheral pulses BL ASSESSMENT/PLAN: CAD/STEMI s/p CABG - Cardiac cath 05/01 with 40% distal LM, 100% prox LAD, 90% prox Cx, 50% prox and distal RCA - Echo 05/02 EF??37% -VF (brief) on 05/03 treated with Amiodarone -CABG x4 05/04/2021 -continue ASA/Statin -low dose Coreg resumed monitoring closely, had lower BP ?? COVID 19 - dx 05/19/21 - Remdesivir and dexamethasone -on n/c O2 at 2L -Pulmonology following ?? Acute Respiratory failure - Lung infiltrates per CXR on 05/19, completed Abx, COVID + - transferred to ICU 05/17 for increasing oxygen requirments - CT PE negative? Hematuria -resolved -cysto 05/14 ?? Urinary retention -urology following ?? S/p Cardiogenic shock + Hypotension -off pressors -midodrine TID -BP improved ?? HLD -stable on Statin PLAN: No CV recs, pending SNF placement [facility] 06/01/2021 9:20 AM Cosigned by Blue Cooley Jr., MD at 06/01/2021 9:35 AM STAFF FORESTER F FORESTER F FORESTER * Mae Covington, [facility] - 06/01/2021 12:10 AM CST Pharmacokinetic Consult - Vancomycin Dosing Deepak Alvarado is a 60 y.o. male who has been consulted for vancomycin dosing for HAP. Relevant clinical data and objective history reviewed: Creatinine Date Value Ref Range Status 05/31/2021 0.46 (L) 0.80 - 1.30 mg/dL Final 05/30/2021 0.47 (L) 0.80 - 1.30 mg/dL Final 05/29/2021 0.38 (L) 0.80 - 1.30 mg/dL Final BUN Date Value Ref Range Status 05/31/2021 16 8 - 25 mg/dL Final 05/30/2021 20 8 - 25 mg/dL Final 05/29/2021 18 8 - 25 mg/dL Final Estimated Creatinine Clearance: 172.9 mL/min (A) (by C-G formula based on SCr of 0.46 mg/dL (L)). Lab Results Component Value Date/Time WBC 18.4 (H) 05/31/2021 05:39 AM HGB 10.4 (L) 05/31/2021 05:39 AM HGB 7.8 (L) 05/04/2021 07:28 PM HCT 32.1 (L) 05/31/2021 05:39 AM MCV 92.8 05/31/2021 05:39 AM LABPLAT 470 (H) 05/31/2021 05:39 AM Patient Weight 05/29/21 76.3 kg (168 lb 3.4 oz) Assessment/Plan Current regimen is vancomycin 1750 mg IV Q12H. Trough evel this morning returned 19.0 mcg/mL (result was not reported until this evening). Continue same dose and interval. Next trough 06/02 05:30. Pharmacy will continue to follow the patient???s culture results and clinical progress daily. Day 6 of therapy Mae Covington RPh F FORESTER * Yves Weinberg MD - 05/31/2021 2:12 PM CST Nephrology Progress Note [facility] SUBJECTIVE 05/31 Na 132, Cr normal. To be transferred to today. Good UO. All labs reviewed. Bicarb better. Very deconditioned. Agreeable to SNF. 05/29/21 Remains frail. BP soft, on hi dose midodrine. Still requiring sig oxygen. Very deconditioned. May need SNF vs LTAC. Na 130, bicarb 18. Cr normal. 05/28/21 Appears better. All labs and data reviewed. Na and CR stable. Started on lisinopril. Will DC. On high dose midodrine. O2 sats still not Acceptable. Na 135, bicarb 17. Cr normal. Mg low, being replaced. 05/27/21 Doing about the same. Has completed tx for COVID. Still in ICU. All labs reviewed. 05/26/21 Doing fair. Appears comfortable. Some dyspnea. All labs and data reviewed. Na and Cr stable. Good UO. 05/25/21 Doing fair. All labs reviewed. Renal fn nl. Na 132. Overall slowly improving. 05/24/21 Pt seen/examined. All labs and data reviewed. Getting IV lasix PRN. Na 133, lytes and renal fn stable. 05/23/21 Pt seen/examined. All labs reviewed. Receiving K phos. BP soft, on hi dose midodrine. Na 132. I gave lasix 40 iv times 1 for falling UO. Remains in ICU. 05/22/21 Pt seen/examined. All labs and data reviewed. Na 134, Cr 0.62. Dyspnea better. Eager to go home but remains in ICU. Stable renal fn and lytes. OK for loop diuretics PRN. Avoid thiazides. 05/21/21 Pt seen/examined. All labs reviewed. Off lasix drip. Still dyspneic. Renal fn better. Na 135. 05/20/21 Pt seen/examined. All labs and data reviewed. COVID pos. On Dex and remdisivir. On lasix drip. Na 130, Cr 1.44. 05/19 Cr 1.41 Na 130. Started on Corlanor. Appears stable. BP remains very soft. UO not accurate. 05/17 Transferred to ICU for hi O2 requirements. Has left nostril epistaxis. On low dose pressors and lasix and insulin drip. Na 128, should improve with loop diuresis. Cr 1.2. 05/16 Creatinine stable and sodium trending up.On IV lasix,lytes wnl.Osorio out,having some problems with retention- nurses in contact with urology,doing bladder scans. 05/15/21 Doing fair. Soorio out. Has not voided yet. Na 131 with loop diuresis and improved. All labs and data reviewed. Excellent UO. Doing fair. Some flank pain and mild dyspnea. Na 127 and a little lower. BP better. Agreeable to cysto, but urology planning on conservative tx. Will start loop diuresis. OBJECTIVE Vitals: Vitals: 05/31/21 1008 05/31/21 1200 05/31/21 1300 05/31/21 1325 BP: 106/70 108/70 Pulse: 90 98 Resp: 20 14 Temp: 36.5 ??C (97.7 ??F) TempSrc: SpO2: 94% Weight: Height: Intake/Output Summary (Last 24 hours) at 05/31/2021 1412 Last data filed at 05/31/2021 1300 Gross per 24 hour Intake 1615 ml Output 2555 ml Net -940 ml REVIEW OF SYSTEMS Review of Systems Epistaxis, dyspnea. Constitutional: Negative. HENT: Negative. Eyes: Negative. Respiratory: Negative. Cardiovascular: Negative. Gastrointestinal: Negative. Genitourinary: Negative. Musculoskeletal: Negative. Skin: Negative. Allergic/Immunologic: Negative. Hematological: Negative. All other systems reviewed and are negative. PHYSICAL EXAM Physical Exam Constitutional: Appears well-developed. O2 on HENT: wnl Head: Normocephalic. Eyes: Pupils are equal, round, and reactive to light. Neck: Normal range of motion. Neck supple. Cardiovascular: Normal rate. Pulmonary/Chest: Effort normal and breath sounds normal. Abdominal: Soft. NT,active BS Musculoskeletal: Normal range of motion. Neurological: Alert, oriented. Skin: Skin is warm. Nursing note and vitals reviewed. MEDICATIONS Current Facility-Administered Medications: ??? acetaminophen (TYLENOL) tablet 650 mg, 650 mg, oral, Q6H PRN, Eleonora Duarte NP, 650 mg at 05/29/21 1429 ? ? al & mag hydroxide axpcakmxydx-nbgrznppwgaeruq-eulofgfxj-nystatin (MAGIC MOUTHWASH) suspension 1-1-1-1, 20 mL, swish & spit, Q4H PRN, Elena Kelly NP ??? albuterol 2.5 mg /3 mL (0.083 %) nebulizer solution 2.5 mg, 2.5 mg, nebulization, Q4H PRN (RT),Ralf Tomlinson MD, 2.5 mg at 05/17/21 0224 ??? albuterol HFA (PROVENTIL HFA,VENTOLIN HFA,PROAIR HFA) 90 mcg/actuation inhaler 8 puff, 8 puff, inhalation, Q4H While awake (RT), Ralf Tomlinson MD, 8 puff at 05/31/21 1325 ??? aspirin enteric coated tablet 81 mg, 81 mg, oral, Daily, Varsha Crowder NP, 81 mg at 05/31/21757 ??? atorvastatin (LIPITOR) tablet 80 mg, 80 mg, oral, Nightly, Rhina Granados MD, 80 mg at 05/30/212112 ??? carvediloL (COREG) tablet 3.125 mg, 3.125 mg, oral, BID with meals (bkfst, dinner), Nalini Clayton MD, 3.125 mg at 05/29/211731 ??? cefepime (MAXIPIME) 2,000 mg in sodium chloride 0.9% 100 mL IVPB, 2,000 mg, intravenous, Q12H, Angelo Vance MD, Last Rate: 200 mL/hr at 05/31/21551, 2,000 mg at 05/31/21551 ??? clopidogreL (PLAVIX) tablet 75 mg, 75 mg, oral, Daily, Alejandro Gonzalez NP, 75 mg at 05/31/21757 ??? dapagliflozin (FARXIGA) tablet 10 mg, 10 mg, oral, Daily, Stephen Melgar MD, 10 mg at ??? dextrose oral liquid liquid 15 g, 15 g, oral, Q15 Min PRN OR dextrose (D10W) 10% bolus 250 mL, 250 mL, intravenous, Q15 Min PRN, Silviano Huddleston NP ??? dextrose oral liquid liquid 15 g, 15 g, oral, Q15 Min PRN OR [DISCONTINUED] dextrose (D10W)10% bolus 250 mL, 250 mL, intravenous, Q15 Min PRN, Anibal Lara MD ??? enoxaparin (LOVENOX) syringe 40 mg, 40 mg, subcutaneous, Daily-2100, Rhina Granados MD, 40 mg at 05/30/212112 ??? glucagon injection 1 mg, 1 mg, intramuscular, Q30 Min PRN, Silviano Huddleston NP ??? guaiFENesin (ROBITUSSIN) 20 mg/mL oral liquid 200 mg, 200 mg, oral, QID PRN, Caleb Toth PA, 200 mg at 05/25/21 2353 ??? insulin lispro (HumaLOG, ADMELOG) 100 unit/mL injection 0-10 Units, 0-10 Units, subcutaneous, TID with meals, Silviano Huddleston NP, 2 Units at 05/31/21 1319 ??? insulin lispro (HumaLOG, ADMELOG) 100 unit/mL injection 0-5 Units, 0-5 Units, subcutaneous, Nightly, Silviano Huddleston NP, 1 Units at 05/30/212113 ??? midodrine (PROAMATINE) tablet 15 mg, 15 mg, oral, TID, Silviano Huddleston NP, 15 mg at 05/31/21757 ??? ondansetron (ZOFRAN) injection 4 mg, 4 mg, intravenous, Q6H PRN, Rhina Granados MD ??? pantoprazole DR (PROTONIX) extended release tablet 40 mg, 40 mg, oral, Daily, hRina Granados MD, 40 mg at 05/31/21757 ??? polyethylene glycol (MIRALAX) packet 17 g, 17 g, oral, Q12H, Elena Kelly NP, 17 g at 05/30/212111 ??? QUEtiapine (SEROquel) tablet 50 mg, 50 mg, oral, Nightly, Silviano Huddleston NP, 50 mg at 05/30/212112 ??? senna-docusate (PERICOLACE) 8.6-50 mg per tablet 2 tablet, 2 tablet, oral, Q12H, Martin Kelly NP, 2 tablet at 05/30/212112 ??? sodium bicarbonate tablet 1,300 mg, 1,300 mg, oral, BID, Yves Weinberg MD, 1,300 mg at 05/31/21757 ??? sodium chloride 0.9% 0.9% infusion - ADS Override Pull, , , , ??? sodium chloride 0.9% flush 0.5-20 mL, 0.5-20 mL, intra-catheter, Q8H LEAH, Rhina Granados MD, 10 mL at 05/31/21 0552 ??? tamsulosin (FLOMAX) extended release capsule 0.4 mg, 0.4 mg, oral, Daily with dinner, Elena Kelly NP, 0.4 mg at 05/30/21 1710 ??? vancomycin (VANCOCIN) 1,750 mg in sodium chloride 0.9% 500 mL IVPB, 1,750 mg, intravenous, Q12H, Lc Simons MD, Last Rate: 258.8 mL/hr at 05/31/21 0757, 1,750 mg at 05/31/21 0757 Lab/Radiology/Diagnostic Review: Recent Results (from the past 24 hour(s)) POCT glucose Collection Time: 05/30/21 5:17 PM Result Value Ref Range Glucose, POC 162 70 - 199 mg/dL POCT glucose Collection Time: 05/30/21 8:09 PM Result Value Ref Range Glucose, POC 193 70 - 199 mg/dL Phosphorus Collection Time: 05/31/21 5:39 AM Result Value Ref Range Phosphorus, pl 2.7 2.3 - 4.5 mg/dL Magnesium Collection Time: 05/31/21 5:39 AM Result Value Ref Range Magnesium 2.0 1.4 - 2.5 mg/dL CBC without differential Collection Time: 05/31/21 5:39 AM Result Value Ref Range WBC 18.4 (H) 3.8 - 9.9 K/cumm Hgb 10.4 (L) 13.0 - 17.5 g/dL Hct 32.1 (L) 38.9 - 50.3 % Plt 470 (H) 150 - 400 K/cumm MPV 11.3 9.1 - 12.3 fL RBC 3.46 (L) 4.30 - 5.80 M/cumm MCV 92.8 81.3 - 96.4 fL MCH 30.1 27.1 - 33.3 pg MCHC 32.4 32.3 - 35.7 g/dL RDW CV 14.1 11.1 - 14.9 % RDW SD 46.8 35.7 - 48.1 fL NRBC abs 0.00 0.00 - 0.01 K/cumm Basic metabolic panel Collection Time: 05/31/21 5:39 AM Result Value Ref Range Sodium 132 (L) 135 - 145 mmol/L Potassium, pl 4.2 3.3 - 4.9 mmol/L Chloride 102 97 - 110 mmol/L CO2 18 (L) 22 - 32 mmol/L Anion gap 12 2 - 15 mmol/L BUN 16 8 - 25 mg/dL Creatinine 0.46 (L) 0.80 - 1.30 mg/dL Glucose 118 70 - 199 mg/dL Calcium 8.7 8.5 - 10.3 mg/dL eGFR Collection Time: 05/31/21 5:39 AM Result Value Ref Range eGFR 123 mL/min/1.73 m2 POCT glucose Collection Time: 05/31/21 8:04 AM Result Value Ref Range Glucose, POC 126 70 - 199 mg/dL POCT glucose Collection Time: 05/31/21 12:59 PM Result Value Ref Range Glucose, POC 157 70 - 199 mg/dL Recent Labs Lab Units 05/26/21 1601 CLARITY U Clear COLOR U Yellow KETONES UR Negative NITRITE UR Negative SPEC GRAV U 1.028 UROBILINOGEN UR mg/dL <2.0 WBC UR QT /HPF 11-* XR Chest 1 View - Portable - in AM Result Date: 05/11/2021 Narrative: EXAMINATION: XR CHEST 1 VIEW HISTORY: The patient is a 60-year-old male who has had cardiac surgery. Comparison made with the previous study dated 05/10/2021. TECHNIQUE: AP portable view of the chest. FINDINGS: Lungs clear. Heart not enlarged. Aortic atherosclerosis. No failure. The right IJ [place] catheter has been retracted with its tip in the distal superior vena cava. Impression: IMPRESSION: No failure. Electronically signed by: Elvira Blackman M.D. XR Chest 1 View - Portable - in AM Result Date: 05/10/2021 Narrative: EXAMINATION: XR CHEST 1 VIEW DATE: 05/10/2021 2:40 AM COMPARISON: 05/09/2021 HISTORY: 60-year-old man cardiac surgery follow-up FINDINGS:Compared with study the previous day, significant improvement. There is cardiomegaly with postsurgical changes with continued and decreasing failure. Bibasilar atelectasis with left pleural fluid decreasing. No pneumothorax. [place] catheter remainsin place Impression: Decreasing failure, atelectasis and left effusion. Electronically signed by: Deandre Lomeli M.D. XR Chest 1 View - Portable - in AM Result Date: 05/09/2021 Narrative: EXAMINATION: XR CHEST 1 VIEW DATE: 05/09/2021 4:10 AM HISTORY: 60-year-old man cardiac surgery follow-up FINDINGS:Compared with study the previous day, significant improvement. There is cardiomegaly with postsurgical changes with continued but decreasing failure. Bibasilar atelectasis with left pleural fluid decreasing. No pneumothorax. [place] catheter remains in place Impression: Decreasing failure, atelectasis and left effusion. Electronically signed by: Deandre Lomeli M.D. XR Chest 1 View - Portable - in AM Result Date: 05/08/2021 Narrative: EXAMINATION: XR CHEST 1 VIEW DATE: 05/08/2021 4:15 AM HISTORY: 60-year-old man cardiac surgery follow-up FINDINGS:Compared with study the previous day, significant improvement. There is cardiomegaly with postsurgical changes with continued but decreasing failure. Bibasilar atelectasis with left pleural fluid. No pneumothorax. [place] catheter remains in place Impression: Decreasing failure. No pneumothorax. Electronically signed by: Deacon Cummings M.D. XR Chest 1 View - Portable - in AM Result Date: 05/07/2021 Narrative: EXAMINATION: XR CHEST 1 VIEW DATE: 05/07/2021 3:55 AM HISTORY: 60-year-old man follow-upcardiac surgery FINDINGS:Compared with study of the previous day, postsurgical changes in the heartand mediastinum with cardiomegaly are stable. [place] catheter remains in place. Left thoracostomy tube remains in place. No pneumothorax. Pulmonary vascular congestion with interstitial lung disease remain prominent. Impression: Persistent prominent interstitial lung disease with failure. Electronically signed by: Deacon Cummings M.D. XR Chest 1 View - Portable - in AM Result Date: 05/06/2021 Narrative: EXAMINATION: XR CHEST 1 VIEW DATE: 05/06/2021 4:05 AM INDICATION: Cardiac surgery. COMPARISON: 05/05/2021. FINDINGS: No pneumothorax or pleural effusion. Similar-appearing pulmonary vascular congestion and interstitial opacities most notable in the bilateral upper lobes consistent with pulmonary edema. Pulmonary catheter catheter, left thoracostomy tube, and mediastinal drain are appropriately position. Intra-aortic balloon pump is appropriately positioned. Interval removal of endotracheal tube. Impression: 1. Interval removal of endotracheal tube. Remaining tubes and lines are appropriately positioned. 2. Similar-appearing cardiomegaly, pulmonary vascular congestion, and prominent bilateralinterstitial markings suggestive of interstitial pulmonary edema. Electronically signed by: Richard Zhao II, D.O. XR Chest 1 View - Portable - in AM Result Date: 05/05/2021 Narrative: EXAMINATION: XR CHEST 1 VIEW DATE: 05/05/2021 4:15 AM HISTORY: 60-year-old man cardiac surgery follow-up FINDINGS:Compared with the study of the prior day, tubes and catheters remain satisfactorily positioned. Worsening pulmonary vascular congestive changes are seen. Cardiomegaly with postsurgical changes stable. No pneumothorax. Impression: Increasing failure. Electronically signed by: Deacon Cummings M.D. XR Chest 1 Vw Portable Result Date: 05/05/2021 Narrative: EXAMINATION: XR CHEST 1 VIEW DATE: 05/04/2021 8:40 PM HISTORY: 60-year-old man coronary artery bypass follow-up FINDINGS:Compared with the study of earlier the same day, postsurgical changes now evident within the heart and mediastinum with cardiomegaly. Interval placement of endotracheal tube, nasogastric tube, [place] catheter, left thoracostomy tube and mediastinal drain all in satisfactory position. No pneumothorax. Interstitial lung disease with mild pulmonary vascular congestive changes. Aortic balloon pump is no longer seen. Impression: Tube placements with postsurgical changes with cardiomegaly with interstitial lung disease and mild failure with no pneumothorax. Electronically signed by: Deacon Cummings M.D. XR Chest 1 Vw Portable Result Date: 05/04/2021 Narrative: EXAMINATION: XR CHEST 1 VIEW DATE: 05/04/2021 9:05 AM HISTORY: Coronary artery disease FINDINGS:Comparison is made with study of 2 days earlier. Cardiomegaly, COPD with interstitial lung disease stable. Mild failure. Aortic balloon pump stable in position at the proximal descending aorta. No pneumothorax. No new infiltrates. Impression: Stable appearance. COPD cardiomegaly, with mild failure suspected. Electronically signed by: Deacon Cummings M.D. XR Chest 1 Vw Portable Result Date: 05/02/2021 Narrative: EXAMINATION: XR CHEST 1 VIEW DATE: 05/02/2021 5:15 AM INDICATION: Intra-aortic balloon pump. COMPARISON: 05/01/2021. FINDINGS: Appropriately positioned intra-aortic balloon pump appears unchanged. No pneumothorax or pleural effusion. Mixed reticular and alveolar opacities demonstrated inall lung lobes appear most significant in the upper lobes and perihilar regions, unchanged. Impression: 1. Appropriately positioned intra-aortic balloon pump. 2. Similar mixed reticular and alveolar opacities most notable in the bilateral upper lobes and perihilar region. Electronically signed by: Richard Lopez II, D.O. XR Chest 1 Vw Portable Result Date: 05/02/2021 Narrative: EXAMINATION: XR CHEST 1 VIEW DATE: 05/01/2021 8:15 PM INDICATION: Hypoxia. COMPARISON: None. FINDINGS: No pneumothorax. No pleural effusion. Mixed reticular and alveolar opacities are demonstrated in all lung lobes but demonstrate an upper lobe and perihilar predominance. Findings may represent pulmonary edema on background of centrilobular emphysematous changes. Underlying infectious process not entirely excludable. Cardiac mediastinal silhouette is stable in appearance. No acute osseous abnormality. Impression: Mixed reticular and alveolar opacities are demonstrated in all lung lobes but demonstrate an upper lobe and perihilar predominance. Findings may represent pulmonary edema on background ofcentrilobular emphysematous changes. Electronically signed by: Richard Lopez II, D.O. Transthoracic Echo (TTE) Limited Result Date: 05/07/2021 Narrative: [place] [address] Limited Echocardiogram Report Patient Name: DEEPAK ALVARADO : 1960 StudyDate: 05/07/2021 12:16:52 PM Gender: M Tech: Location: [place] [address] Ref.Provider: RHINA GRANADOS Height(Cm): 175 BSA: 2.1 Weight(Kg): 91 Heart Rate: 82 BP: 127/44 Quality: Good Order Provider: Dr. Sutton Procedures: Echocardiographic Report: Limited transthoracic echocardiogram with 2D and M-Mode. Measurements: 2D/M Mode Measurement Value Normal Range LVIDd 2D 3.43 [ 4.20 -5.90 ] cm LVIDs 2D 2.59 [ 2.30 - 3.90 ] cm LVPWd 2D 1.01 [ 0.60 - 1.00 ] cm IVSd 2D 0.71 [ 0.60 - 0.90 ] cm Findings: Left Ventricle: Reduced left ventricular cavity size. Mild global left ventricular systolic dysfunction. Ejection fraction is measured at 42 %. These segments of the LV are hypokinetic: apical anterior segment. Pericardium: Trivial pericardial effusion. No echocardiographic evidence to suggest pericardial tamponade. Conclusions: Reduced left ventricular cavity size. Mild global left ventricular systolic dysfunction. Ejection fraction is measured at 42 %. These segments of the LV are hypokinetic: apical anterior segment. Trivial pericardial effusion. No echocardiographic evidence to suggest pericardial tamponade. Electronically Signed By: Gianni Francois MD, [facility] :54:09 STAFF FORESTER Transthoracic Echo Complete W Doppler/CF Result Date: 05/02/2021 Narrative: [place] [address] Echocardiogram Report Patient Name: DEEPAK ALVARADO W : 1960 Study Date: 05/02/2021 8:50:02 AM Gender: M Tech: Location: [place] [address] Ref Provider: NALINI CLAYTONHeight(Cm): 175 BSA: 2.11 Weight(Kg): 92 Heart Rate: 89 BP: 102/52 Quality: Good Order Provider: NALINI CLAYTON PROCEDURES: Echocardiographic Report: Transthoracic echocardiogram with complete 2D, M-Mode, and color Doppler examination. INDICATIONS: Free Text. Measurements: 2D/M Mode Doppler Measurement Value Normal Range Measurement Value Normal Range EF Teich 2D 30.0 [ 55.0 - 70.0 ] percent CHRISTINA Vmax 2.04 [ 2.00 - 4.00 ] cm2 EF Mod 4C 42.2 [ 55.0 - 70.0 ] percent AV Mean PG 5 [ 2 - 4 ]mmHg LVIDd 2D 4.54 [ 4.20 - 5.90 ] cm AV Peak Ramesh 1.54 [ 1.00 - 1.70 ] m/s LVIDs 2D 3.91 [ 2.30 - 3.90 ] cm AV VTI 26.93 cm LVPWd 2D 0.92 [ 0.60 - 1.00 ] cm LVOT Diam 2.20 [ 1.70 - 2.10 ] cm IVSd 2D 0.76 [ 0.60 - 0.90 ] cm LVOT Peak Ramesh 0.83 [ 0.70 - 1.10 ] m/s LA Dimension MM 5.08 [ 3.00 - 4.00 ] cm LVOT VTI 13.82 [ 20.00 - 30.00 ] cm AoR Diam MM 4.12 [ 2.60 - 3.70 ] cm MV E Peak Ramesh 0.85 [ 0.60 - 1.30 ] m/s LA Volume Index 20.83 [ 16.00 - 28.00 ] cc/m2 MV A Peak Ramesh 1.14 [ 1.00 - 1.20 ] m/sACS MM 1.91 [ 1.50 - 2.60 ] cm MV Mean PG 1 [ <= 5 ] mmHg MV PHT 43 [ 20 - 100 ] msec MVA 2.20 MV Decel Time 137 [ 104 - 258 ] msec PV Peak Ramesh 1.10 [ 0.40 - 0.80 ] m/s TR Peak Ramesh 1.32 [ 1.00 -2.80 ] m/s TR Peak PG 7 mmHg RVSP 16.93 [ 10.00 - 36.00 ] mmHg E' 0.06 E/E' 14.00 Measurement Value Normal Range Measurement Value Normal Range 2D/M Mode Doppler - FINDINGS: Atrial Septum: Normal atrial septum. Left Ventricle: Normal left ventricular size. Left ventricle not well visualized. There is severe hypokinesis of the mid anteroseptal, anterior, and apical mancilla. Normal left ventricular wall thickness. Impaired diastolic relaxation Grade I. Ejection fraction is visually estimated at 40 %. Left Atrium: The left atrium is normal in size. Right Ventricle: Normal right ventricular size. Normal right ventricular systolic function. Right Atrium: The right atrium is normal in size. Aortic Valve: Normal structure of the aortic valve. No evidence of hemodynamically significant aortic stenosis by Doppler. No aortic regurgitation. Mitral Valve: Normal structure of the mitral valve. Trivial regurgitation of the mitral valve. Pulmonic Valve: Pulmonic valve not well visualized. Trivial re gurgitation in the pulmonic valve. Tricuspid Valve: Normal structure of the tricuspid valve. Trivial regurgitation in the tricuspid valve. Pericardium: Normal pericardium with no significant pericardial effusion. Aorta: Normal aortic root. IVC: Normal size and normal respiratory collapse consistentwith normal right atrial pressure (<5 mmHg). CONCLUSIONS: Technically difficult study with limited views. Normal left ventricular size. Left ventricle not well visualized. There is severe hypokinesis of the mid anteroseptal, anterior, and apical mancilla. Normal left ventricular wall thickness. Impaired diastolic relaxation Grade I. Ejection fraction is visually estimated at 40 %. Normal right ventricular size. Normal right ventricular systolic function. Normal structure of the mitral valve. Trivial regurgitation of the mitral valve. Normal structure of the tricuspid valve. Trivial regurgitation in the tricuspid valve. Electronically Signed By: Rylee Brito, , [facility], [place], [place] 2021-05-02 14:07:25 STAFF FORESTER CC: CC: CC: ASSESSMENT/PLAN Hyponatremia from SIADH and possibly from zaroxylyn use. Work up for hyponatremia ongoing. PO FR If in clinical fluid overload, can use tolvaptan. Renal fn is better. Na better with loop diuresis, use PRN. Daily BMP. Na 132 and acceptable. Midodrine for hypotension. DC lisinopril. NAGMA noted Increase oral bicarb ?? Recent bladder tumor removal with hematuria. ?? -??Urology is following.H/H stable -Cysto vs conservative tx. -Voiding trial, hematuria has stopped. -Epistaxis Use nasal pillows. -CHF with decompensation Continue diuresis, diuretics stopped by audio director. RHC not done. Agree with Corlanor. ?? Hypokalemia from diuresis. Replace PRN. ?? 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 COVID positive. Per protocol. On Remdisivir and Dex. Resp failure Acute on chronic, needs close monitoring, still on high flow oxygen. ?? Syncopal episode -(+) orthostasis -receiving albumin -IV lasix was discontinued. ??There is a 1x order for zaroxolyn 10mg this am- recommend holding fornow. ??D/w RN ?? Coronary artery disease -s/p CABG post STEMI -??underwent four-vessel bypass ??MAE to the LAD, sequential saphenous vein graft to diagonal and obtuse marginal and a vein graft to the PDA. -s/p??low dose dobutamine -paced rhythm ?? Moderate LV dysfunction -s/p IV??lasix??and??low dose??dobutamine -Beta blockers, ??[place] once off dobutamine-would hold off adding given syncopal episode this am -repeat ECHO 05/07 EF 42% (see above) ?Nonsustained ventricular tachycardia -no recurrence of VT -K 3.7, Mg??2.0. ??Supplement to keep K >/= 4.0, Mg >/= 2.0 ?Diabetes mellitus -?on lantus and SSI ?? COPD: ?? -on?O2 NC??4L (dried blood to L nare humidified o2 ordered) ?? Dyslipidemia -?Continue atorvastatin. ?PAD -?Stable ? Anemia -Hb??11.4 (10.5)??(8.6) -monitor ?? I can be reached at [phone] with any concerns. Thank you Rhina Granados MD for the consult. Yves Weinberg MD [employer] [phone] F FORESTER * Ochoa Encinas MD - 05/31/2021 1:12 PM CST Cardiology Inpatient Progress Note [facility] SUBJECTIVE: Pt had no acute events overnight. He is feeling better overall and denies chest pain and shortness of breath. Nursing reports O2 requirements have decreased to 2L n/c. OBJECTIVE: Vitals: 05/31/21 0753 05/31/21 0853 05/31/21 0953 05/31/21 1008 BP: 95/56 110/72 118/65 106/70 Pulse: 93 Resp: 20 Temp: 36.6 ??C (97.8 ??F) TempSrc: Oral SpO2: 95% Weight: Height: General: AOx3, No acute distress. Cardiac: RRR without murmur or gallop. Normal S1 and S2. No JVD. Vascular: Pulses are palpable in all extremities. No carotid bruits. Lungs: +Scattered rhonchi (B). Abdomen: Soft, NT/ND, +BS Ext: Warm without edema. No cyanosis or clubbing. ASSESSMENT/PLAN: CAD/STEMI s/p CABG - Cardiac cath 05/01 with 40% distal LM, 100% prox LAD, 90% prox Cx, 50% prox and distal RCA - Echo 05/02 EF??37% -VF (brief) on 05/03 treated with Amiodarone -CABG x4 05/04/2021 -continue ASA/Statin -low dose Coreg on hold due to lower BP ?? COVID 19 - dx 05/19/21 - Remdesivir and dexamethasone -on n/c O2 at 2L -Pulmonology following ?? Acute Respiratory failure - Lung infiltrates per CXR on 05/19, completed Abx, COVID + - transferred to ICU 05/17 for increasing oxygen requirments - CT PE negative? Hematuria -resolved -cysto 05/14 Urinary retention -urology following ?? S/p Cardiogenic shock + Hypotension -off pressors -midodrine TID -BP improved ?? HLD -stable on Statin Ochoa Encinas MD, [facility] 05/31/2021 1:12 PM F FORESTER * Jose Garner MD - 05/31/2021 8:57 AM CST Infectious Disease Deepak Adair Lazarus Admit Date: 05/01/2021 LOS: 30 Days Subjective Afebrile. In bed, NAD. Pt currently on 2 lpm per NC. No new issues per RN ROS Denies n/v/d/f/chills/sob/cp. States feeling better Anti-infectives (From admission, onward) Start Dose/Rate Route Frequency Ordered Stop 05/30/21 1718 cefepime (MAXIPIME) 2,000 mg in sodium chloride 0.9% 100 mL IVPB 2,000 mg 200 mL/hr over 30 Minutes intravenous Every 12 hours 05/30/21 1008 05/30/21 0600 vancomycin (VANCOCIN) 1,750 mg in sodium chloride 0.9% 500 mL IVPB 1,750 mg 258.8 mL/hr over 120 Minutes intravenous Every 12 hours 05/29/21 1919 06/04/21 0559 05/17/212115 al & mag hydroxide wnaettzaizz-gaxzrwbvgpznhvu-sclmqczhx-nystatin (MAGIC MOUTHWASH) suspension 1-1-1-1 20 mL swish & spit Every 4 hours PRN 05/17/212116 Data Vitals: 05/31/21 0538 05/31/21 0543 05/31/21 0553 05/31/21 0608 BP: 95/51 91/52 90/52 Pulse: 95 86 91 89 Resp: Temp: TempSrc: SpO2: Weight: Height: Temp (24hrs), Av ??C (98.6 ??F), Min:36.4 ??C (97.6 ??F), Max:37.7 ??C (99.9 ??F) Recent Labs Lab Units 05/31/21 0539 05/30/21 0405 05/29/21 0528 WBC K/cumm 18.4* 14.4* 16.1* HEMOGLOBIN g/dL 10.4* 10.0* 10.1* HEMATOCRIT % 32.1* 29.8* 31.3* PLATELETS K/cumm 470* 467* 508* Recent Labs Lab Units 05/31/21 0539 05/30/215 05/30/21 04005/29/21 0528 05/29/21 0528 BUN SERUM mg/dL 16 -- 20 -- 18 CREATININE mg/dL 0.46* < > 0.47* < > 0.38* < > = values in this interval not displayed. Scheduled Meds:albuterol HFA, 8 puff, inhalation, Q4H While awake (RT) aspirin, 81 mg, oral, Daily atorvastatin, 80 mg, oral, Nightly carvediloL, 3.125 mg, oral, BID with meals (bkfst, dinner) cefepime, 2,000 mg, intravenous, Q12H clopidogreL, 75 mg, oral, Daily dapagliflozin, 10 mg, oral, Daily enoxaparin, 40 mg, subcutaneous, Daily-2100 insulin lispro, 0-10 Units, subcutaneous, TID with meals insulin lispro, 0-5 Units, subcutaneous, Nightly midodrine, 15 mg, oral, TID pantoprazole DR, 40 mg, oral, Daily polyethylene glycol, 17 g, oral, Q12H QUEtiapine, 50 mg, oral, Nightly senna-docusate, 2 tablet, oral, Q12H sodium bicarbonate, 1,300 mg, oral, BID sodium chloride 0.9%, 0.5-20 mL, intra-catheter, Q8H LEAH tamsulosin, 0.4 mg, oral, Daily with dinner vancomycin, 1,750 mg, intravenous, Q12H Continuous Infusions:sodium chloride 0.9%, PRN Meds:.??? acetaminophen ? ? al & mag hydroxide aqlecylsvkx-xvocoaddkqxlawc-ryrvszdap-nystatin ??? albuterol ??? dextrose OR dextrose ??? dextrose OR [DISCONTINUED] dextrose ??? glucagon ??? guaiFENesin ??? ondansetron Exam General appearance: alert, cooperative, no distress HEENT: (-)icterus, Oropharnyx is normal, NCAT Neck: No palpable LN Lungs: Course breath sounds and symmetric; minimal to moderate respiratory effort Heart: regular rhythm, normal S1 and S2, no m/r/g Abdomen: soft without mass, non-tender, +bowel sounds, no HSM Skin: (-)new rashes, no ulcerations MSK: no gross deformities, FROM Vascular: no Edema, pulses present bilaterally Neuro: No focal deficits Psych: Appropriate mood and affect ?? Cultures 05/02 COVID 19- 05/19 COVID 19 positive 05/26 blood cultures negative ?? 05/05 tracheal aspirate culture with yeast 05/26 pneumonia sputum culture PCR with Moraxella/Haemophilus/MRSA/rhino virus/enterovirus ?? Assessment: 1. Acute respiratory failure 2. COVID-19 infection 3. Status post CABG 4. Hematuria 5. Pneumonia 6. Rhino virus ?? Plan: 1. Continue vanc and cefepime until 06/05 2. Continue treatment for COVID per attending 3. Rhino virus may have been present on admission 4. Continue monitor labs and vs trends. Follow WBC 5. Continue supportive care Gorge Posadas NP-C [place] Infectious Disease Call [phone] 05/31/2021 8:58 AM F FORESTER F FORESTER * Alejandro Pratt MD - 05/31/2021 6:42 AM CST Pulmonary Daily Progress Chief complaint/reason for consult: Respiratory failure. Interval History: Oxygen weaned from 10 lpm yesterday to 4 lpm this am SaO2 95% Denies dyspnea; cough improved Afebrile alert No sputum production No NVD COVID positive 05/19/21 Presenting History: 60 yo man w COPD, DM, CAD/stents admitted 05/01/21 with chest pain. Had recent hematuria as well. Workup revealed an acute MT. Cath showed multi-vessel CAD. Had balloon pump placed. CABG x 4 done on 05/04/21. He was continued on mechanical ventilation and self extubated this AM (05/05/21). He is on multiple pressors. Sedated with precedex. Some tachypnea. A balloon pump is in place. Current tobacco use. COPD listed as prior diagnosis. No inhalers on home med list. Allergies: Allergies Allergen Reactions ??? Metoclopramide Medications: Scheduled Meds:albuterol HFA, 8 puff, inhalation, Q4H While awake (RT) aspirin, 81 mg, oral, Daily atorvastatin, 80 mg, oral, Nightly carvediloL, 3.125 mg, oral, BID with meals (bkfst, dinner) cefepime, 2,000 mg, intravenous, Q12H clopidogreL, 75 mg, oral, Daily dapagliflozin, 10 mg, oral, Daily enoxaparin, 40 mg, subcutaneous, Daily-2100 insulin lispro, 0-10 Units, subcutaneous, TID with meals insulin lispro, 0-5 Units, subcutaneous, Nightly midodrine, 15 mg, oral, TID pantoprazole DR, 40 mg, oral, Daily polyethylene glycol, 17 g, oral, Q12H QUEtiapine, 50 mg, oral, Nightly senna-docusate, 2 tablet, oral, Q12H sodium bicarbonate, 1,300 mg, oral, BID sodium chloride 0.9%, 0.5-20 mL, intra-catheter, Q8H LEAH tamsulosin, 0.4 mg, oral, Daily with dinner vancomycin, 1,750 mg, intravenous, Q12H Continuous Infusions:sodium chloride 0.9%, PRN Meds:.??? acetaminophen ? ? al & mag hydroxide anwqfhsyjfg-chpbdnpikikvvmk-dywhibvcz-nystatin ??? albuterol ??? dextrose OR dextrose ??? dextrose OR [DISCONTINUED] dextrose ??? glucagon ??? guaiFENesin ??? ondansetron ROS Above review of system reviewed on 05/31/2021 Vitals: Vitals: 05/31/21 0538 05/31/21 0543 05/31/21 0553 05/31/21 0608 BP: 95/51 91/52 90/52 Pulse: 95 86 91 89 Resp: Temp: TempSrc: SpO2: Weight: Height: Temp (24hrs), Av.9 ??C (98.4 ??F), Min:36.3 ??C (97.4 ??F), Max:37.7 ??C (99.9 ??F) Intake/Output Summary (Last 24 hours) at 05/31/2021 0642 Last data filed at 05/31/2021 0600 Gross per 24 hour Intake 1855 ml Output 2370 ml Net -515 ml Physical Exam Constitutional: General: He is not in acute distress. Appearance: He is well-developed. HENT: Head: Normocephalic and atraumatic. Eyes: General: No scleral icterus. Conjunctiva/sclera: Conjunctivae normal. Neck: Thyroid: No thyromegaly. Cardiovascular: Rate and Rhythm: Normal rate and regular rhythm. Heart sounds: No murmur heard. Pulmonary: Effort: Pulmonary effort is normal. No respiratory distress. Breath sounds: Normal breath sounds. No wheezing, rhonchi or rales. Chest: Comments: Sternotomy incision Abdominal: General: Bowel sounds are normal. Palpations: Abdomen is soft. Skin: General: Skin is warm and dry. Neurological: Mental Status: He is alert. Lab/Radiology/Diagnostic Review: Labs: Recent Labs Lab Units 05/31/21 0539 05/30/215 05/29/21 0528 WBC K/cumm 18.4* 14.4* 16.1* HEMOGLOBIN g/dL 10.4* 10.0* 10.1* HEMATOCRIT % 32.1* 29.8* 31.3* PLATELETS K/cumm 470* 467* 508* Recent Labs Lab Units 05/31/21 0539 05/30/21200805/30/21 1717 05/30/21 0754 05/30/21 0405 05/29/21 0801 05/29/21 0528 SODIUM mmol/L 132* -- -- -- 131* -- 130* POTASSIUM PLASMA mmol/L 4.2 -- -- -- 4.0 -- 4.1 CHLORIDE mmol/L 102 -- -- -- 100 -- 101 CO2 mmol/L 18* -- -- -- 20* -- 18* ANIONGAP mmol/L 12 -- -- -- 11 -- 11 GLUCOSE mg/dL 118 -- -- -- 144 < > 105 POC GLUCOSE MONITOR mg/dL -- 193 162 < > -- < > -- BUN SERUM mg/dL 16 -- -- -- 20 -- 18 CREATININE mg/dL 0.46* -- -- -- 0.47* -- 0.38* CALCIUM mg/dL 8.7 -- -- -- 8.6 -- 8.6 < > = values in this interval not displayed. Recent Labs Lab Units 05/25/21 0951 PH ART 7.47* PCO2 ART mmHg 32* PO2 ART mmHg 72* HCO3 ART (CALC) mmol/L 24 BASE EXC ART mmol/L 0 O2 SAT ART (JOELLE) % 95 Respiratory pathogen pcr 05/26: + rhinovirus Legionella Ag: negative Pneumococcal Ag: negative Imaging: CXR 05/31: CM, increased PVC, similar bilateral infiltrates CT chest 05/19/21: b gg inf, severe emphysema CT chest 05/25/21: b inf, emphysema, no PE Other diagnostic tests: I have personally reviewed above laboratory findings, chest imaging, and diagnostic tests 05/31/2021 Assessment and Plan: Acute respiratory failure Acute MT w CAD s/p CABG x 4 on 05/04/21, past hx multiple stents Cardiogenic shock, resolved Cardiomyopathy EF 40% V fib COPD: severe emphysematous changes on CT Anemia Hematuria s/p cystoscopy/fulguration COVID 19, diagnosed 05/19/21, resp status began worsening 05/15/21 Possible bacterial pneumonia Rhinovirus ?? Recs: Oxygen support, adjust as needed Dexamethasone: completed Baricitinib: stopped 05/26 Remdesivir: completed On cefepime and vancomycin as per ID Incentive spirometry Scheduled albuterol Increase activity as tolerated OK to move out of ICU from pulmonary perspective Chart reviewed F FORESTER * Robbie Celeste MD - 05/31/2021 6:23 AM CST General Medicine Daily Progress Patient is a 60 y.o. male who presented with a chief complaint of chest pain. Interval History: Uneventful night On 2L O2 Subjective: No complaints Objective: Vitals: 24hr Min/Max: Temp Min: 36.3 ??C (97.4 ??F) Max: 37.7 ??C (99.9 ??F) Pulse Min: 76 Max: 99 BP Min: 87/64 Max: 126/74 Resp Min: 14 Max: 26 SpO2 Min: 88 % Max: 96 % Most Recent : Vitals: 05/31/21 0538 05/31/21 0543 05/31/21 0553 05/31/21 0608 BP: 95/51 91/52 90/52 Pulse: 95 86 91 89 Resp: 19 19 20 17 Temp: TempSrc: SpO2: Weight: Height: I/O last 2 completed shifts: In: 1985 [P.O.:370; I.V.:1615] Out: 2905 [Urine:2905] I/O this shift: In: - Out: 165 [Urine:165] Physical Exam: Gen: In no apparent distress Neuro: Alert, oriented in time place and person. weakness. Pulmonary: Not dyspneic. No crackles or rhonchi. Cardiovascular: HS 1, 2 . regular rhythm. No murmurs heard. No JVD, No lower extremity edema. GI: abdomen not distended, soft, non-tender. Musculoskeletal: No joint swelling, tenderness or warmth. : Osorio catheter in place. Blood stained urine in urine bag Current Meds: albuterol HFA, 8 puff, inhalation, Q4H While awake (RT) aspirin, 81 mg, oral, Daily atorvastatin, 80 mg, oral, Nightly carvediloL, 3.125 mg, oral, BID with meals (bkfst, dinner) cefepime, 2,000 mg, intravenous, Q12H clopidogreL, 75 mg, oral, Daily dapagliflozin, 10 mg, oral, Daily enoxaparin, 40 mg, subcutaneous, Daily-2100 insulin lispro, 0-10 Units, subcutaneous, TID with meals insulin lispro, 0-5 Units, subcutaneous, Nightly midodrine, 15 mg, oral, TID pantoprazole DR, 40 mg, oral, Daily polyethylene glycol, 17 g, oral, Q12H QUEtiapine, 50 mg, oral, Nightly senna-docusate, 2 tablet, oral, Q12H sodium bicarbonate, 1,300 mg, oral, BID sodium chloride 0.9%, 0.5-20 mL, intra-catheter, Q8H LEAH tamsulosin, 0.4 mg, oral, Daily with dinner vancomycin, 1,750 mg, intravenous, Q12H PRN Medications Medication Dose Route Frequency Last Admin ??? acetaminophen (TYLENOL) tablet 650 mg 650 mg oral Q6H PRN 650 mg at 05/29/21 1429 ? ? al & mag hydroxide jcfbtfohfvu-asrezwpaemakpqk-tattwvwjl-nystatin (MAGIC MOUTHWASH) suspension 1-1-1-1 20 mL swish & spit Q4H PRN ??? albuterol 2.5 mg /3 mL (0.083 %) nebulizer solution 2.5 mg 2.5 mg nebulization Q4H PRN (RT) 2.5mg at 05/17/21 0224 ??? dextrose oral liquid liquid 15 g 15 g oral Q15 Min PRN Or ??? dextrose (D10W) 10% bolus 250 mL 250 mL intravenous Q15 Min PRN ??? dextrose oral liquid liquid 15 g 15 g oral Q15 Min PRN ??? glucagon injection 1 mg 1 mg intramuscular Q30 Min PRN ??? guaiFENesin (ROBITUSSIN) 20 mg/mL oral liquid 200 mg 200 mg oral QID PRN 200 mg at 05/25/21 9413 ??? ondansetron (ZOFRAN) injection 4 mg 4 mg intravenous Q6H PRN Lab/Radiology/Diagnostic Review: Recent Labs Lab Units 05/30/21 0405 05/29/21 0528 05/28/21 0247 WBC K/cumm 14.4* 16.1* 12.1* HEMOGLOBIN g/dL 10.0* 10.1* 11.2* HEMATOCRIT % 29.8* 31.3* 34.3* MCV fL 92.3 91.8 91.7 PLATELETS K/cumm 467* 508* 468* Recent Labs Lab Units 05/30/21200805/30/21 1717 05/30/21 1208 05/30/21 0754 05/30/21 0405 05/29/21 0801 05/29/21 0528 05/28/21 0440 05/28/21 0247 SODIUM mmol/L -- -- -- -- 131* -- 130* -- 135 POTASSIUM PLASMA mmol/L -- -- -- -- 4.0 -- 4.1 -- 3.7 CHLORIDE mmol/L -- -- -- -- 100 -- 101 -- 107 CO2 mmol/L -- -- -- -- 20* -- 18* -- 17* ANIONGAP mmol/L -- -- -- -- 11 -- 11 -- 11 GLUCOSE mg/dL -- -- -- -- 144 < > 105 < > 68* POC GLUCOSE MONITOR mg/dL 193 162 190 < > -- < > -- < > -- BUN SERUM mg/dL -- -- -- -- 20 -- 18 -- 19 CREATININE mg/dL -- -- -- -- 0.47* -- 0.38* -- 0.40* CALCIUM mg/dL -- -- -- -- 8.6 -- 8.6 -- 7.7* MAGNESIUM mg/dL -- -- -- -- 1.9 -- 1.8 -- 1.5 < > = values in this interval not displayed. No results found for: BNP No results found for: TROPONINT Recent Labs Lab Units 05/26/21 1601 COLOR U Yellow CLARITY U Clear SPEC GRAV U 1.028 PH, URINE 7.0 PROTEIN UR QL Negative GLUCOSE URQL 3+* KETONES UR Negative BLOOD UR 2+* NITRITE UR Negative LEUKOCYTE ESTERASE UR 1+* Estimated Creatinine Clearance: 169.2 mL/min (A) (by C-G formula based on SCr of 0.47 mg/dL (L)). Patient Active Problem List Diagnosis Date Noted ??? ST elevation myocardial infarction (STEMI) ([facility]) 05/01/2021 Assessment/Plan: 1. Acute anterior STEMKI: CAD, post LHC, post CABG 05/04, IABP p;aced, removed 05/06. CTS consulted. Continue ASA, statin, plavix, beta octavia 2. Acute hypoxemic respiratory failure: / COVID-19. Transferred to ICU 05/17 for worsening hypoxemia/increased O2 requirements. CTPE neg for PE 3. chtonic systolic HF; EF 37% 4. COVID-19 PNA: completed remdesivoir, decadron. 5. Possible bacterial PNA: continue cefepime + vancomycin. ID consulted. 6. RSV +ve: respiratory precautions 7. Cardiogenic Shock, post CABG: resolved. was on levophed and dobutamine. 8. Gross hematuria: Posy cystoscopy, clot evacuation by urology on 05/14. TURBT at [place]. Osorio catheter in place. p 9. V.fib 05/03: brief. Received amiodarone, dobutamine gtt. 10. DM2: continue SSI 11. Acute blood loss anemia: received blood transfusion 12. Tobacco smoking 13. Code status: 14. Stable for transfer to telemetry Robbie Celeste MD Team Health Pager #: [phone] This note is dictated and transcribed by Rad Direct direct software. Court Monitor variances may occur. Despite proof reading, typographical errors may occur. F FORESTER * Marek Mei NP - 05/30/2021 8:03 PM CST Images from the original note were not included. Critical Care Medicine Daily Progress Team: Community PM Subjective Patient is a 60 y.o. y/o male admitted on 05/01/2021 5:20 PM with the following indication(s) for ICU care hypoxemic respiratory failure, pulmonary edema, hypokalemia, shock Interval History: - on high flow NC - Aggressive pulmonary hygiene - Vanc/Cefe for 10 day course per ID - LED pending HPI (05/17) 60M smoker hx copd, obesity, pvd, htn, hld, dm2 & CAD s/p multiple LAD stents who p/w anterior STEMI after bladder procedure on 04/29. [facility] was [facility] on [facility] where they found in-stent thrombosis and an angioplasty was performed but stent could not be placed. A balloon pump was placed and the patient was transferred to the CVU. CT-surgery was consulted for CABG. The patie nt underwent a 4 vessel cabg on 05/04 w/ Dr. Granados (MAE->LAD, Saph vein->diag & obtuse, Saph->PDA). He developed rebleeding from his bladder tumor and this was adressed by urology. Heself extubated the next day after his CABG. His osorio was removed yesterday and he is currently post op day 11 from the CABG. He has been getting diuresed on the floor but has unfortunately had increasing oxygen requirement for the last 24 hours despite diuresis. He is currently on a non-rebreatherand being transferred to the ICU. Hospital Course 04/29 Cystoscopy at [facility] 04/30 STEMI, [facility] -> instent thrombosis, angioplasty, IABP, transfer to [facility] 05/04/21: Increased blood clot from osorio and obstruction with pain. 05/05/21: Brief asystole o/n w turning. Stable after. Self extubated in AM. 05/06/21: NAEON. Maintained on CPAP and optiflow. 05/07/21: NAEON. Up in chair at time of exam. TTF 05/10 near syncopal episode 05/14 cystoscopy with clot removal and fulguration of bleeding 05/17 readmit to ICU with pulmonary edema, lasix drip 05/18 Nasal cannula, on/off pressors, Negative VQ, ACTH Stim unremarkable 05/19 COVID positive, 15 L/NC, Remdesivir, dexamethasone 05/21 coude catheter placed, remains on optiflow, updated 05/22 increase seroquel, on optiflow 40L 75% 05/23 HF meds started, Lasix 40mg?? 05/24 FiO2 at 60% 05/25 PE protocol 05/26 pneumonia PCR ++++, start Vancomycin and Cefepime 05/27 Plavix resumed, overnight mild hematuria, Optiflow 05/28: Plavix, Optiflow, hypoxia x 1 getting up to chair 05/29 Optiflow, decadron ended 05/30 HFNC Scheduled Medications: albuterol HFA, 8 puff, inhalation, Q4H While awake (RT) aspirin, 81 mg, oral, Daily atorvastatin, 80 mg, oral, Nightly carvediloL, 3.125 mg, oral, BID with meals (bkfst, dinner) cefepime, 2,000 mg, intravenous, Q12H clopidogreL, 75 mg, oral, Daily dapagliflozin, 10 mg, oral, Daily enoxaparin, 40 mg, subcutaneous, Daily-2100 insulin lispro, 0-10 Units, subcutaneous, TID with meals insulin lispro, 0-5 Units, subcutaneous, Nightly midodrine, 15 mg, oral, TID pantoprazole DR, 40 mg, oral, Daily polyethylene glycol, 17 g, oral, Q12H QUEtiapine, 50 mg, oral, Nightly senna-docusate, 2 tablet, oral, Q12H sodium bicarbonate, 1,300 mg, oral, BID sodium chloride 0.9%, 0.5-20 mL, intra-catheter, Q8H LEAH tamsulosin, 0.4 mg, oral, Daily with dinner vancomycin, 1,750 mg, intravenous, Q12H PRN Medications: ??? acetaminophen ? ? al & mag hydroxide dnxfjdpzuyw-wckmppiidmhwgnl-nejoijnrc-nystatin ??? albuterol ??? dextrose OR dextrose ??? dextrose OR [DISCONTINUED] dextrose ??? glucagon ??? guaiFENesin ??? ondansetron Objective Vitals: Most Recent: Vitals: 05/30/211899 BP: 115/76 Pulse: 84 Resp: 21 Temp: SpO2: 24hr Min/Max: Temp Min: 36.3 ??C (97.4 ??F) Max: 37 ??C (98.6 ??F) Pulse Min: 74 Max: 97 BP Min: 85/54 Max: 124/74 Resp Min: 16 Max: 34 SpO2 Min: 90 % Max: 100 % LDA: Introducer 05/04/21 Right Internal jugular (Active) Placement Date/Time: 05/04/21 (c) 1441 Hand Hygiene Performed: Yes Orientation: Right Location: Internal jugular Description (optional): multi-lumen access catheter (MAC) Number of days: 12 I/O: Date 05/29/21 1900 - 05/30/21 0659 05/30/21 0700 - 05/31/2159 Shift 2977-5961 24 Hour Total 8554-4014 5504-4677 24 Hour Total INTAKE P.O. 130 970 240 240 I.V.(mL/kg) 1615(21.2) 1615(21.2) Shift Total(mL/kg) 130(1.7) 970(12.7) 1855(24.3) 1855(24.3) OUTPUT Urine(mL/kg/hr) 1025 2550 1880(2.1) 1880 Shift Total(mL/kg) 1025(13.4) 2550(33.4) 1880(24.6) 1880(24.6) NET -895 -1580 - - Weight (kg) 76.3 76.3 76.3 76.3 76.3 Physical Exam: General appearance: ill appearing male lying in bed HEENT: Normocephalic, without obvious abnormality, atraumatic, PERRLA Lungs: coarse to auscultation bilaterally Heart: regular rate and rhythm, S1, S2 normal, no murmur, click, rub or gallop Abdomen: soft, non-tender; bowel sounds normal; no masses, no organomegaly Extremities: extremities normal, warm and well-perfused Pulses: radial, DP, PT 2+ and symmetric Skin: Skin color, texture, turgor normal. No rashes or lesions Neurologic: A&Ox3, following commands Lab/Radiology/Diagnostic Review: Laboratory review: Lab results in the last 24 hours: Recent Results (from the past 24 hour(s)) POCT glucose Collection Time: 05/29/21 9:43 PM Result Value Ref Range Glucose, POC 220 (H) 70 - 199 mg/dL Phosphorus Collection Time: 05/30/21 4:05 AM Result Value Ref Range Phosphorus, pl 2.4 2.3 - 4.5 mg/dL Magnesium Collection Time: 05/30/21 4:05 AM Result Value Ref Range Magnesium 1.9 1.4 - 2.5 mg/dL CBC without differential Collection Time: 05/30/21 4:05 AM Result Value Ref Range WBC 14.4 (H) 3.8 - 9.9 K/cumm Hgb 10.0 (L) 13.0 - 17.5 g/dL Hct 29.8 (L) 38.9 - 50.3 % Plt 467 (H) 150 - 400 K/cumm MPV 11.2 9.1 - 12.3 fL RBC 3.23 (L) 4.30 - 5.80 M/cumm MCV 92.3 81.3 - 96.4 fL MCH 31.0 27.1 - 33.3 pg MCHC 33.6 32.3 - 35.7 g/dL RDW CV 14.0 11.1 - 14.9 % RDW SD 46.5 35.7 - 48.1 fL NRBC abs 0.00 0.00 - 0.01 K/cumm Basic metabolic panel Collection Time: 05/30/21 4:05 AM Result Value Ref Range Sodium 131 (L) 135 - 145 mmol/L Potassium, pl 4.0 3.3 - 4.9 mmol/L Chloride 100 97 - 110 mmol/L CO2 20 (L) 22 - 32 mmol/L Anion gap 11 2 - 15 mmol/L BUN 20 8 - 25 mg/dL Creatinine 0.47 (L) 0.80 - 1.30 mg/dL Glucose 144 70 - 199 mg/dL Calcium 8.6 8.5 - 10.3 mg/dL eGFR Collection Time: 05/30/21 4:05 AM Result Value Ref Range eGFR 122 mL/min/1.73 m2 POCT glucose Collection Time: 05/30/21 7:54 AM Result Value Ref Range Glucose, POC 125 70 - 199 mg/dL POCT glucose Collection Time: 05/30/21 12:08 PM Result Value Ref Range Glucose, POC 190 70 - 199 mg/dL POCT glucose Collection Time: 05/30/21 5:17 PM Result Value Ref Range Glucose, POC 162 70 - 199 mg/dL XR Chest 1 Vw Portable Result Date: 05/28/2021 Slight improved aeration especially in the left lung.. Electronically signed by: Deacon Cummings M.D. Plan: Neuro: #Acute pain - Tylenol PRN - Lidocaine patches #Insomnia - Seroquel CV: #Severe multivessel CAD s/p CABG #STEMI #HFrEF, chronic - S/p CABG by MD Granados - [facility] (04/30) -> in-stent restenosis, unsuccessful angioplasty, IABP placed, IABP removed 05/06 - ASA/Atorvastatin/Plavix - Coreg and lisinopril - Cardiology following - CTS following - TTE (05/17) -> EF 35-40% Pulmonary: #Acute hypoxic respiratory failure 2/2 #COVID 19 pneumonia #HCAP, H. Flu, moraxilla, and MRSA - HFNC - COVID 19 positive (05/19) - s/p Remdesivir and decadron - Aggressive pulmonary hygiene, IS, OOBTC in am - Maintain sats> 92% - Vanc/Cefe for 10 day course GI: Diet: Mechanical soft PUD PPx: Pantoprazole Bowel regimen: Docusate/Senna/Urvashi Endo: #Hyperglycemia, likely 2/2 stress response - Glycemic control - SSI Currently on farxiga (Consider d/c if procedure upcoming or if NPO for some time) - Frequent accuchecks - Endocrine managing Renal: - BUN/Cr 20/0.47 - FBG net negative - trend renal function, avoid nephrotoxins, renal dose medications - optimize electrolytes with caution to renal function -goal K ~4, Mg > 2.2, phos > 3, iCAL > 4.5 -provide supplement as needed -AM BMP and electrolytes check #Hematuria 2/2 #Bladder tumor - (05/14) Cystoscopy for clot evacuation and cessation of bleeding sites - Mild hematuria improving - Urology following - Flomax Heme: #ABLA 2/2 surgery H&H 04/17.8 plt 467 - No active signs of bleeding - Transfuse for hgb < 8 - CBC in am DVT PPX: SCD's/Lovenox ID: #COVID 19 pneumonia #HCAP, H. Flu, Moraxella, MRSA, Enterovirus and Rhinovirus - WBC: 14.1 - s/p Remdesivir and Dexamethasone - Vanc/Cefe for 10 day course - ID Following - CBC in am - CXR in am for evaluation of lung escamilla - Trend WBC and fever curve ICU standards of care: Physical therapy/Activity: PT/OT Access: RUE PICC (05/18) Goals of care: Full code Community PM Assessment and plan has been reviewed with attending, Dr. Dalton Mei, ACNP [phone], [place] 1 Critical Care Medicine [facility] Cosigned by Austin Hoffman MD at 06/09/2021 1:01 PM STAFF FORESTER F FORESTER F FORESTER * Cristina Serrano NP - 05/30/2021 2:48 PM CST Daily Progress SUBJECTIVE: Mr. Alvarado is resting in bed, O2 now at 4 L OBJECTIVE: Vitals: 05/30/21 1100 05/30/21 1200 05/30/21 1300 05/30/21 1400 BP: 110/68 106/68 105/72 104/63 Pulse: 79 80 91 82 Resp: 18 19 22 19 Temp: TempSrc: SpO2: Weight: Height: Intake/Output Summary (Last 24 hours) at 05/30/2021 1448 Last data filed at 05/30/2021 1200 Gross per 24 hour Intake 610 ml Output 2030 ml Net -1420 ml Scheduled Medications Medication Dose Route Frequency ??? albuterol HFA (PROVENTIL HFA,VENTOLIN HFA,PROAIR HFA) 90 mcg/actuation inhaler 8 puff 8 puff inhalation Q4H While awake (RT) ??? aspirin enteric coated tablet 81 mg 81 mg oral Daily ??? atorvastatin (LIPITOR) tablet 80 mg 80 mg oral Nightly ??? carvediloL (COREG) tablet 3.125 mg 3.125 mg oral BID with meals (bkfst, dinner) ??? cefepime (MAXIPIME) 2,000 mg in sodium chloride 0.9% 100 mL IVPB 2,000 mg intravenous Q12H ??? clopidogreL (PLAVIX) tablet 75 mg 75 mg oral Daily ??? dapagliflozin (FARXIGA) tablet 10 mg 10 mg oral Daily ??? enoxaparin (LOVENOX) syringe 40 mg 40 mg subcutaneous Daily-2100 ??? insulin lispro (HumaLOG, ADMELOG) 100 unit/mL injection 0-10 Units 0-10 Units subcutaneous TID with meals ??? insulin lispro (HumaLOG, ADMELOG) 100 unit/mL injection 0-5 Units 0-5 Units subcutaneous Nightly ??? midodrine (PROAMATINE) tablet 15 mg 15 mg oral TID ??? pantoprazole DR (PROTONIX) extended release tablet 40 mg 40 mg oral Daily ??? polyethylene glycol (MIRALAX) packet 17 g 17 g oral Q12H ??? QUEtiapine (SEROquel) tablet 50 mg 50 mg oral Nightly ??? senna-docusate (PERICOLACE) 8.6-50 mg per tablet 2 tablet 2 tablet oral Q12H ??? sodium bicarbonate tablet 1,300 mg 1,300 mg oral BID ??? sodium chloride 0.9% flush 0.5-20 mL 0.5-20 mL intra-catheter Q8H LEAH ??? tamsulosin (FLOMAX) extended release capsule 0.4 mg 0.4 mg oral Daily with dinner ??? vancomycin (VANCOCIN) 1,750 mg in sodium chloride 0.9% 500 mL IVPB 1,750 mg intravenous Q12H LABS: Recent Labs Lab Units 05/30/21 0405 WBC K/cumm 14.4* HEMOGLOBIN g/dL 10.0* HEMATOCRIT % 29.8* PLATELETS K/cumm 467* Recent Labs Lab Units 05/30/21 1208 05/30/21 0754 05/30/21 0405 SODIUM mmol/L -- -- 131* POTASSIUM PLASMA mmol/L -- -- 4.0 CHLORIDE mmol/L -- -- 100 CO2 mmol/L -- -- 20* ANIONGAP mmol/L -- -- 11 GLUCOSE mg/dL -- -- 144 POC GLUCOSE MONITOR mg/dL 190 < > -- BUN SERUM mg/dL -- -- 20 CREATININE mg/dL -- -- 0.47* CALCIUM mg/dL -- -- 8.6 < > = values in this interval not displayed. Recent Labs Lab Units 05/24/21 0348 CHOLESTEROL mg/dL 131 TRIGLYCERIDES mg/dL 133 HDL mg/dL 31* No results found for: BNP No results found for: TROPONINI Exam PE: not done ASSESSMENT/PLAN: CAD + STEMI s/p CABG - Cardiac cath 05/01 with 40% distal LM, 100% prox LAD, 90% prox Cx, 50% prox and distal RCA - Echo 05/02 EF??37%, CABGx4 05/04/2021 - SR 80s on Sedicii -Pro 2233 -CTS following ?? COVID 19 - dx 05/19/2021 - on Remdesivir and dexamethasone -on O2 at 4L today -pulmonology following ?? Acute Respiratory failure - Lung infiltrates per CXR on 05/19, completed Abx, COVID + - transferred to ICU 05/17 for increasing oxygen requirments - on Optiflow??with decreased O2 requirements - Pulm following - CT PE negative? Hematuria - cysto 05/14 - resolved ?? Urinary retention -urology following ?? S/p Cardiogenic shock + Hypotension - off pressors -midodrine TID -BP improving ?? Hypokalemia - on K supplemented -??improved ??Started low dose coreg, lisinopril for LV dysfunction ??Tachycardia present ?? Hx V. Fib - brief on 05/03 - treated w/ Amiodarone and Dobutamine gtt, resolved -4 beat episode of NSVT 05/23 ?? HLD - on Statin ?? Cristina Serrano NP, MSN, ANP-[facility] 05/30/2021 2:48 PM F FORESTER * Lc Simons MD - 05/30/2021 12:00 PM CST Hospitalist Progress Note Name: Deepak Alvarado Admission Date: 05/01/2021 Today's Date: 05/30/2021 Subjective: Pt seen and examined 05/16: feels ok today, on 5L per NC 05/17: transferred to ICU for worsening respiratory distress requiring more O2 05/20: remains in the ICU, on Optiflow today 05/21: about the same today, Optiflow 05/22: still on Optiflow, back on Insulin gtt 05/23: no major changes , still on Optiflow 05/24: remains on Optiflow 05/25: about the same 05/26: optiflow, back on antibiotics 05/27: Patient remains on OptiFlow. No events overnight. Patient appears comfortable 05/28: Patient has no complaints other than just wanting to be out of here. Appears comfortable. 05/29: Patient remains on OptiFlow, still wanting to go home 05/30: Pt off Optiflow, still on 8L O2. Objective: Vitals: 05/30/21 0823 05/30/21 0900 05/30/21 1000 05/30/21 1100 BP: 105/66 113/93 110/68 Pulse: 97 95 79 Resp: Temp: TempSrc: SpO2: 93% Weight: Height: Wt Readings from Last 3 Encounters: 05/29/21 76.3 kg (168 lb 3.4 oz) 08/27/13 114.3 kg (252 lb) 10/19/12 111.6 kg (246 lb) I/O last 3 completed shifts: In: 2505 [P.O.:970; I.V.:1535] Out: 3850 [Urine:3850] I/O this shift: In: 240 [P.O.:240] Out: 545 [Urine:545] Scheduled Meds Current Facility-Administered Medications Medication Dose Route Frequency Provider Last Rate Last Admin ??? acetaminophen (TYLENOL) tablet 650 mg 650 mg oral Q6H PRN Eleonora Duarte NP 650 mg at 05/29/21 1429 ? ? al & mag hydroxide cgusplwlcet-whhwpdlvqjpgqya-ymgwnbsgt-nystatin (MAGIC MOUTHWASH) suspension 1-1-1-1 20 mL swish & spit Q4H PRN Elena Kelly NP ??? albuterol 2.5 mg /3 mL (0.083 %) nebulizer solution 2.5 mg 2.5 mg nebulization Q4H PRN (RT) Ralf Tomlinson MD 2.5 mg at 05/17/21 0224 ??? albuterol HFA (PROVENTIL HFA,VENTOLIN HFA,PROAIR HFA) 90 mcg/actuation inhaler 8 puff 8 puff inhalation Q4H While awake (RT) Ralf Tomlinson MD 8 puff at 05/30/21 0823 ??? aspirin enteric coated tablet 81 mg 81 mg oral Daily Varsha Crowder NP 81 mg at 05/30/21 0947 ??? atorvastatin (LIPITOR) tablet 80 mg 80 mg oral Nightly Rhina Granados MD 80 mg at 05/29/212132 ??? carvediloL (COREG) tablet 3.125 mg 3.125 mg oral BID with meals (bkfst, dinner) Nalini Clayton MD 3.125 mg at 05/29/21 173 ??? cefepime (MAXIPIME) 2,000 mg in sodium chloride 0.9% 100 mL IVPB 2,000 mg intravenous Q12H Angelo Vance MD ??? clopidogreL (PLAVIX) tablet 75 mg 75 mg oral Daily Alejandro Gonzalez NP 75 mg at ??? dapagliflozin (FARXIGA) tablet 10 mg 10 mg oral Daily Stephen Melgar MD 10 mg at 05/30/21 0947 ??? dextrose oral liquid liquid 15 g 15 g oral Q15 Min PRN Silviano Hudldeston NP Or ??? dextrose (D10W) 10% bolus 250 mL 250 mL intravenous Q15 Min PRN Silviano Huddleston NP ??? dextrose oral liquid liquid 15 g 15 g oral Q15 Min PRN Anibal Lara MD ??? enoxaparin (LOVENOX) syringe 40 mg 40 mg subcutaneous Daily-2100 Rhina Granados MD 40 mg at107/30/202132 ??? glucagon injection 1 mg 1 mg intramuscular Q30 Min PRN Silviano Huddleston NP ??? guaiFENesin (ROBITUSSIN) 20 mg/mL oral liquid 200 mg 200 mg oral QID PRN Caleb Toth PA 200 mg at 05/25/21 2353 ??? insulin lispro (HumaLOG, ADMELOG) 100 unit/mL injection 0-10 Units 0-10 Units subcutaneous TID with meals Silviano Huddleston NP 4 Units at 05/29/21 173 ??? insulin lispro (HumaLOG, ADMELOG) 100 unit/mL injection 0-5 Units 0-5 Units subcutaneous Nightly Silviano Huddleston NP 2 Units at 05/29/212148 ??? midodrine (PROAMATINE) tablet 15 mg 15 mg oral TID Silviano Huddleston NP 15 mg at 05/30/21 0947 ??? ondansetron (ZOFRAN) injection 4 mg 4 mg intravenous Q6H PRN Rhina Granados MD ??? pantoprazole DR (PROTONIX) extended release tablet 40 mg 40 mg oral Daily Rhina Granados MD40 mg at 05/30/2147 ??? polyethylene glycol (MIRALAX) packet 17 g 17 g oral Q12H Elena Kelly NP 17 g at 05/30/21 0947 ??? QUEtiapine (SEROquel) tablet 50 mg 50 mg oral Nightly Silviano Huddleston NP 50 mg at 133 ??? senna-docusate (PERICOLACE) 8.6-50 mg per tablet 2 tablet 2 tablet oral Q12H Elena Kelly NP 2 tablet at 05/30/21946 ??? sodium bicarbonate tablet 1,300 mg 1,300 mg oral BID Yves Weinberg MD 1,300 mg at 05/30/21 09 ??? sodium chloride 0.9% flush 0.5-20 mL 0.5-20 mL intra-catheter Q8H LEAH Rhina Granados MD 10 mL at 05/30/21 0519 ??? tamsulosin (FLOMAX) extended release capsule 0.4 mg 0.4 mg oral Daily with dinner Elena Kelly NP 0.4 mg at 05/29/21 1732 ??? vancomycin (VANCOCIN) 1,750 mg in sodium chloride 0.9% 500 mL IVPB 1,750 mg intravenous Q12H Lc Simons MD 258.8 mL/hr at 05/30/21 0518 1,750 mg at 05/30/21 0518 ??? acetaminophen ? ? al & mag hydroxide yidzaxgcjnp-mzdrrlnkrzjiyup-znnguachd-nystatin ??? albuterol ??? dextrose OR dextrose ??? dextrose OR [DISCONTINUED] dextrose ??? glucagon ??? guaiFENesin ??? ondansetron Physical Exam: General: alert, cooperative, no distress, appears stated age HEENT: Head:normacephalic, Eyes: Perrla, EOMI bilaterally, nasal and oral mucosal pink and moist Heart: normal rate, regular rhythm, normal S1, S2, no murmurs, rubs, clicks or gallops Lungs: clear to auscultation, no wheezes or rales and unlabored breathing Abdomen: soft, nontender, nondistended, no masses or organomegaly Extremities: peripheral pulses normal, no pedal edema, no clubbing or cyanosis Neuro: alert, oriented x 3, no defects noted in general exam. Lab Data Laboratory review: Chemistry CMP: Lab Results Component Value Date BUNSER 20 05/30/2021 CALCIUM 8.6 05/30/2021 CO2 20 (L) 05/30/2021 CHLORIDE 100 05/30/2021 CREATININE 0.47 (L) 05/30/2021 GLUCOSE 125 05/30/2021 GLUCOSE 144 05/30/2021 POTASSIUM 4.0 05/30/2021 SODIUM 131 (L) 05/30/2021 , CBC: Lab Results Component Value Date WBC 14.4 (H) 05/30/2021 RBC 3.23 (L) 05/30/2021 HGB 10.0 (L) 05/30/2021 HCT 29.8 (L) 05/30/2021 MCV 92.3 05/30/2021 MCH 31.0 05/30/2021 MCHC 33.6 05/30/2021 RDWCV 14.0 05/30/2021 RDWSD 46.5 05/30/2021 MPV 11.2 05/30/2021 NRBCABS 0.00 05/30/2021 , Coags: No results found for: PT, PTT, APTT, FFN, FIBRINOGEN, INR, ACTIVATEDCL, Lipids: No results found for: CHOL, CHLPL, HDL, LDLCALC, TRIG, CHOLHDL, Cardiac Enzymes: No results found for: CKTOTAL, CKMB, CKMBINDEX, TROPONINT and POC Glucose: Lab Results Component Value Date GLUCOSE 125 05/30/2021 GLUCOSE 144 05/30/2021 Home Medications have been reviewed and updated on pt's list Assessment and Plan Acute resp failure - self ext 05/05/21 -Lung infiltrates - pulm vascular congestion/CHF, and suspected pneumonia - completed Zosyn -COVID19 (+) 05/19 -started on Decadron and Remdesivir 05/19 -PRN IV Lasix -pt cont on O2 - wean as tolerated -pulmonology follows -per cards added Farxiga -continue Cefepime and Vancomycin Near syncope/Syncope episode, probable vaso vagal, stable at this time-monitor ?? Acute anterior STEMI with CAD , s/p PCI to LAD -s/p CABG x 4 05/04 given re thrombosis of existing stents -s/p IABP, removed 05/06 - ASA, ??statins, off Plavix due to hematuria, low-dose BB, monitor blood pressure ?? Post CABG cardiogenic shock, hypotensive again - s/p??Dobutamine gtt and Levophed -now on Midodrine ?? Ventricular fibrillation - briefly on 05/03 - treated with Amiodarone and Dobutamine gtt, off them now ?? Gross Hematuria ?- in a pt with hx of ??cystoscopy, -clot evacuation and transurethral resection of bladder tumor at [facility] -s/p 20??German three way catheter -holding Plavix -cysto 05/14 with clot evacuation and fulguration ? Type 2 diabetes.??- SSI proocol ?? Acute blood loss anemia ; -s/p PRBC transfusions in ICU - monitor HH ?? Mild hyponatremia, monitor ?? Hx of ??Tobacco use. ?? DVT prophylaxis :Lovenox Pt will need continued inpatient management for the above medical issues. Code status: full Lc Simons MD [facility] Hospitalist 05/30/2021 12:00 PM F FORESTER * Angelo Vance MD - 05/30/2021 10:06 AM CST Infectious Disease Deepak Alvarado Admit Date: 05/01/2021 LOS: 29 Days Clinical Cours Patient about the same New Symptoms Positive SOB, no Cp, no nvd, no rashes Data Vitals: 05/30/21 0630 05/30/21 0700 05/30/21 0800 05/30/21 0823 BP: 99/64 108/74 124/74 Pulse: 76 80 97 Resp: 18 18 20 Temp: TempSrc: SpO2: 93% 93% Weight: Height: Temp (24hrs), Av.9 ??C (98.4 ??F), Min:36.8 ??C (98.2 ??F), Max:37 ??C (98.6 ??F) Recent Labs Lab Units 05/30/2140405/29/2152705/28/21246 WBC K/cumm 14.4* 16.1* 12.1* HEMOGLOBIN g/dL 10.0* 10.1* 11.2* HEMATOCRIT % 29.8* 31.3* 34.3* PLATELETS K/cumm 467* 508* 468* Recent Labs Lab Units 05/30/2140405/29/2152705/29/2152705/28/2124605/28/21246 BUN SERUM mg/dL 20 -- 18 -- 19 CREATININE mg/dL 0.47* < > 0.38* < > 0.40* < > = values in this interval not displayed. Scheduled Meds:albuterol HFA, 8 puff, inhalation, Q4H While awake (RT) aspirin, 81 mg, oral, Daily atorvastatin, 80 mg, oral, Nightly carvediloL, 3.125 mg, oral, BID with meals (bkfst, dinner) cefepime, 2,000 mg, intravenous, Q8H LEAH clopidogreL, 75 mg, oral, Daily dapagliflozin, 10 mg, oral, Daily enoxaparin, 40 mg, subcutaneous, Daily-2100 insulin lispro, 0-10 Units, subcutaneous, TID with meals insulin lispro, 0-5 Units, subcutaneous, Nightly magnesium sulfate, 2 g, intravenous, Once midodrine, 15 mg, oral, TID pantoprazole DR, 40 mg, oral, Daily polyethylene glycol, 17 g, oral, Q12H QUEtiapine, 50 mg, oral, Nightly senna-docusate, 2 tablet, oral, Q12H sodium bicarbonate, 1,300 mg, oral, BID sodium chloride 0.9%, 0.5-20 mL, intra-catheter, Q8H LEAH tamsulosin, 0.4 mg, oral, Daily with dinner vancomycin, 1,750 mg, intravenous, Q12H Continuous Infusions: PRN Meds:.??? acetaminophen ? ? al & mag hydroxide eivbmydbqpz-dheqbdjzphqtuiv-ywesxqxwf-nystatin ??? albuterol ??? dextrose OR dextrose ??? dextrose OR [DISCONTINUED] dextrose ??? glucagon ??? guaiFENesin ??? ondansetron Exam General appearance: alert, cooperative, no distress HEENT: (-)icterus, Oropharnyx is normal, NCAT Neck: No palpable LN Lungs: Course breath sounds and symmetric; minimal to moderate respiratory effort Heart: regular rhythm, normal S1 and S2, no m/r/g Abdomen: soft without mass, non-tender, +bowel sounds, no HSM Skin: (-)new rashes, no ulcerations MSK: no gross deformities, FROM Vascular: no Edema, pulses present bilaterally Neuro: No focal deficits Psych: Appropriate mood and affect ?? Cultures 05/02 COVID 19- 05/19 COVID 19 positive 05/26 blood cultures negative ?? 05/05 tracheal aspirate culture with yeast 05/26 pneumonia sputum culture PCR with Moraxella/Haemophilus/MRSA/rhino virus/enterovirus ?? Assessment: 1. Acute respiratory failure 2. COVID-19 infection 3. Status post CABG 4. Hematuria 5. Pneumonia 6. Rhino virus ?? Plan: 1. Continue treatment for COVID 2. Continue supportive care 3. Continue cefepime and vanc to complete till 06/05 4. Rhino virus may have been present on admission 5. Continue supportive care Angelo Vance MD 05/30/2021 F FORESTER * Tereza Mccullough NP - 05/30/2021 8:40 AM CST Nephrology Progress Note [facility] SUBJECTIVE 05/30 WBC trending down.Na 131,creatinine stable.Co2 18- up from 17.Other lytes stable.BP stable.I discussed the pt. with [employer] and his ICU nurse.Pt. has significant pneumonia.O2 being weaned- was on optiflo yesterday,now on 8L.No hematuria,hgb stable;minimal edema.Lung sounds decreased.Completed COVID charlene atment,according to notes. 05/29/21 Remains frail. BP soft, on hi dose midodrine. Still requiring sig oxygen. Very deconditioned. May need SNF vs LTAC. Na 130, bicarb 18. Cr normal. 05/28/21 Appears better. All labs and data reviewed. Na and CR stable. Started on lisinopril. Will DC. On high dose midodrine. O2 sats still not Acceptable. Na 135, bicarb 17. Cr normal. Mg low, being replaced. 05/27/21 Doing about the same. Has completed tx for COVID. Still in ICU. All labs reviewed. 05/26/21 Doing fair. Appears comfortable. Some dyspnea. All labs and data reviewed. Na and Cr stable. Good UO. 05/25/21 Doing fair. All labs reviewed. Renal fn nl. Na 132. Overall slowly improving. 05/24/21 Pt seen/examined. All labs and data reviewed. Getting IV lasix PRN. Na 133, lytes and renal fn stable. 05/23/21 Pt seen/examined. All labs reviewed. Receiving K phos. BP soft, on hi dose midodrine. Na 132. I gave lasix 40 iv times 1 for falling UO. Remains in ICU. 05/22/21 Pt seen/examined. All labs and data reviewed. Na 134, Cr 0.62. Dyspnea better. Eager to go home but remains in ICU. Stable renal fn and lytes. OK for loop diuretics PRN. Avoid thiazides. 05/21/21 Pt seen/examined. All labs reviewed. Off lasix drip. Still dyspneic. Renal fn better. Na 135. 05/20/21 Pt seen/examined. All labs and data reviewed. COVID pos. On Dex and remdisivir. On lasix drip. Na 130, Cr 1.44. 05/19 Cr 1.41 Na 130. Started on Corlanor. Appears stable. BP remains very soft. UO not accurate. 05/17 Transferred to ICU for hi O2 requirements. Has left nostril epistaxis. On low dose pressors and lasix and insulin drip. Na 128, should improve with loop diuresis. Cr 1.2. 05/16 Creatinine stable and sodium trending up.On IV lasix,lytes wnl.Osorio out,having some problems with retention- nurses in contact with urology,doing bladder scans. 05/15/21 Doing fair. Osorio out. Has not voided yet. Na 131 with loop diuresis and improved. All labs and data reviewed. Excellent UO. Doing fair. Some flank pain and mild dyspnea. Na 127 and a little lower. BP better. Agreeable to cysto, but urology planning on conservative tx. Will start loop diuresis. OBJECTIVE Vitals: Vitals: 05/30/21 0630 05/30/21 0700 05/30/21 0800 05/30/21 0823 BP: 99/64 108/74 124/74 Pulse: 76 80 97 Resp: 18 18 20 Temp: TempSrc: SpO2: 93% 93% Weight: Height: Intake/Output Summary (Last 24 hours) at 05/30/2021 0840 Last data filed at 05/30/2021 0800 Gross per 24 hour Intake 730 ml Output 2300 ml Net -1570 ml REVIEW OF SYSTEMS Review of Systems Epistaxis, dyspnea. Constitutional: Negative. HENT: Negative. Eyes: Negative. Respiratory: SOB Cardiovascular: Negative. Gastrointestinal: Negative. Genitourinary: Negative. Musculoskeletal: Negative. Skin: Negative. Allergic/Immunologic: Negative. Hematological: Negative. All other systems reviewed and are negative. PHYSICAL EXAM Not done due to PPE concerns;nurse says pt. Has minimal edema and decreased breath sounds. Prior exam- Physical Exam Constitutional: Appears well-developed. O2 on HENT: wnl Head: Normocephalic. Eyes: Pupils are equal, round, and reactive to light. Neck: Normal range of motion. Neck supple. Cardiovascular: Normal rate. Pulmonary/Chest: Effort normal and breath sounds normal. Abdominal: Soft. NT,active BS Musculoskeletal: Normal range of motion. Neurological: Alert, oriented. Skin: Skin is warm. Nursing note and vitals reviewed. MEDICATIONS Current Facility-Administered Medications: ??? acetaminophen (TYLENOL) tablet 650 mg, 650 mg, oral, Q6H PRN, Eleonora Duarte NP, 650 mg at 05/29/21 1429 ? ? al & mag hydroxide qisercgcfzx-vlvrfgubauuhfqi-jwcuxvnbu-nystatin (MAGIC MOUTHWASH) suspension 1-1-1-1, 20 mL, swish & spit, Q4H PRN, Elena Kelly NP ??? albuterol 2.5 mg /3 mL (0.083 %) nebulizer solution 2.5 mg, 2.5 mg, nebulization, Q4H PRN (RT),Ralf Tomlinson MD, 2.5 mg at 05/17/21 0224 ??? albuterol HFA (PROVENTIL HFA,VENTOLIN HFA,PROAIR HFA) 90 mcg/actuation inhaler 8 puff, 8 puff, inhalation, Q4H While awake (RT), Ralf Tomlinson MD, 8 puff at 05/30/2123 ??? aspirin enteric coated tablet 81 mg, 81 mg, oral, Daily, Varsha Crowder NP, 81 mg at 05/29/21821 ??? atorvastatin (LIPITOR) tablet 80 mg, 80 mg, oral, Nightly, Rhina Granados MD, 80 mg at 05/29/212132 ??? carvediloL (COREG) tablet 3.125 mg, 3.125 mg, oral, BID with meals (bkfst, dinner), Nalini Clayton MD, 3.125 mg at 05/29/21 173 ??? cefepime (MAXIPIME) 2,000 mg in sodium chloride 0.9% 100 mL IVPB, 2,000 mg, intravenous, Q8H LEAH, Angelo Vance MD, Last Rate: 200 mL/hr at 05/30/21 0518, 2,000 mg at 05/30/21 0518 ??? clopidogreL (PLAVIX) tablet 75 mg, 75 mg, oral, Daily, Alejandro Gonzalez NP, 75 mg at 05/29/2121 ??? dapagliflozin (FARXIGA) tablet 10 mg, 10 mg, oral, Daily, Stephen Melgar MD, 10 mg at ??? dextrose oral liquid liquid 15 g, 15 g, oral, Q15 Min PRN OR dextrose (D10W) 10% bolus 250 mL, 250 mL, intravenous, Q15 Min PRN, Silviano Huddleston NP ??? dextrose oral liquid liquid 15 g, 15 g, oral, Q15 Min PRN OR [DISCONTINUED] dextrose (D10W)10% bolus 250 mL, 250 mL, intravenous, Q15 Min PRN, Anibal Lara MD ??? enoxaparin (LOVENOX) syringe 40 mg, 40 mg, subcutaneous, Daily-2100, Rhina Granados MD, 40 mg at 05/29/21 2133 ??? glucagon injection 1 mg, 1 mg, intramuscular, Q30 Min PRN, Silviano Huddleston NP ??? guaiFENesin (ROBITUSSIN) 20 mg/mL oral liquid 200 mg, 200 mg, oral, QID PRN, Caleb Toth PA, 200 mg at 05/25/21 2353 ??? insulin lispro (HumaLOG, ADMELOG) 100 unit/mL injection 0-10 Units, 0-10 Units, subcutaneous, TID with meals, Silviano Huddleston NP, 4 Units at 05/29/21 1733 ??? insulin lispro (HumaLOG, ADMELOG) 100 unit/mL injection 0-5 Units, 0-5 Units, subcutaneous, Nightly, Silviano Huddleston NP, 2 Units at 05/29/21 2149 ??? lidocaine (LIDODERM) 5 % patch 1 patch, 1 patch, transdermal, Daily, Rosy Muñoz NP, Medication Removed at 05/27/21 2221 ??? lisinopriL (PRINIVIL,ZESTRIL) tablet 5 mg, 5 mg, oral, Daily, Nalini Clayton MD, 5 mg at 05/29/21 0946 ??? magnesium sulfate 2 g/50 mL in water (premix) 2 g, 2 g, intravenous, Once, Erika Mayer, EFREN ??? midodrine (PROAMATINE) tablet 15 mg, 15 mg, oral, TID, Silviano Huddleston NP, 15 mg at 05/29/21 2320 ??? ondansetron (ZOFRAN) injection 4 mg, 4 mg, intravenous, Q6H PRN, Rhina Granados MD ??? pantoprazole DR (PROTONIX) extended release tablet 40 mg, 40 mg, oral, Daily, Rhina Granados MD, 40 mg at 05/29/21 0817 ??? polyethylene glycol (MIRALAX) packet 17 g, 17 g, oral, Q12H, Elena Kelly NP, 17 g at 05/29/212131 ??? QUEtiapine (SEROquel) tablet 50 mg, 50 mg, oral, Nightly, Silviano Huddleston NP, 50 mg at 05/29/212132 ??? senna-docusate (PERICOLACE) 8.6-50 mg per tablet 2 tablet, 2 tablet, oral, Q12H, Martin Kelly NP, 2 tablet at 05/29/212132 ??? sodium bicarbonate tablet 1,300 mg, 1,300 mg, oral, BID, Yves Weinberg MD, 1,300 mg at 05/29/212132 ??? sodium chloride 0.9% flush 0.5-20 mL, 0.5-20 mL, intra-catheter, Q8H LEAH, Rhina Granados MD, 10 mL at 05/30/21518 ??? tamsulosin (FLOMAX) extended release capsule 0.4 mg, 0.4 mg, oral, Daily with dinner, Elena Kelly NP, 0.4 mg at 05/29/211731 ??? vancomycin (VANCOCIN) 1,750 mg in sodium chloride 0.9% 500 mL IVPB, 1,750 mg, intravenous, Q12H, Lc Simons MD, Last Rate: 258.8 mL/hr at 05/30/2118, 1,750 mg at 05/30/2118 Lab/Radiology/Diagnostic Review: Recent Results (from the past 24 hour(s)) POCT glucose Collection Time: 05/29/21 11:55 AM Result Value Ref Range Glucose, POC 274 (H) 70 - 199 mg/dL Beta-hydroxybutyrate Collection Time: 05/29/21 2:42 PM Result Value Ref Range Beta-Hydroxybutyrate <0.2 <=0.5 mmol/L POCT glucose Collection Time: 05/29/21 4:56 PM Result Value Ref Range Glucose, POC 234 (H) 70 - 199 mg/dL Vancomycin level trough Draw trough 30 minutes prior to 4th dose. Collection Time: 05/29/21 5:09 PM Result Value Ref Range Vancomycin trough 13.8 10.0 - 20.0 mcg/mL POCT glucose Collection Time: 05/29/21 9:43 PM Result Value Ref Range Glucose, POC 220 (H) 70 - 199 mg/dL Phosphorus Collection Time: 05/30/21 4:05 AM Result Value Ref Range Phosphorus, pl 2.4 2.3 - 4.5 mg/dL Magnesium Collection Time: 05/30/21 4:05 AM Result Value Ref Range Magnesium 1.9 1.4 - 2.5 mg/dL CBC without differential Collection Time: 05/30/21 4:05 AM Result Value Ref Range WBC 14.4 (H) 3.8 - 9.9 K/cumm Hgb 10.0 (L) 13.0 - 17.5 g/dL Hct 29.8 (L) 38.9 - 50.3 % Plt 467 (H) 150 - 400 K/cumm MPV 11.2 9.1 - 12.3 fL RBC 3.23 (L) 4.30 - 5.80 M/cumm MCV 92.3 81.3 - 96.4 fL MCH 31.0 27.1 - 33.3 pg MCHC 33.6 32.3 - 35.7 g/dL RDW CV 14.0 11.1 - 14.9 % RDW SD 46.5 35.7 - 48.1 fL NRBC abs 0.00 0.00 - 0.01 K/cumm Basic metabolic panel Collection Time: 05/30/21 4:05 AM Result Value Ref Range Sodium 131 (L) 135 - 145 mmol/L Potassium, pl 4.0 3.3 - 4.9 mmol/L Chloride 100 97 - 110 mmol/L CO2 20 (L) 22 - 32 mmol/L Anion gap 11 2 - 15 mmol/L BUN 20 8 - 25 mg/dL Creatinine 0.47 (L) 0.80 - 1.30 mg/dL Glucose 144 70 - 199 mg/dL Calcium 8.6 8.5 - 10.3 mg/dL eGFR Collection Time: 05/30/21 4:05 AM Result Value Ref Range eGFR 122 mL/min/1.73 m2 POCT glucose Collection Time: 05/30/21 7:54 AM Result Value Ref Range Glucose, POC 125 70 - 199 mg/dL Recent Labs Lab Units 05/26/21 1601 CLARITY U Clear COLOR U Yellow KETONES UR Negative NITRITE UR Negative SPEC GRAV U 1.028 UROBILINOGEN UR mg/dL <2.0 WBC UR QT /HPF 11-* XR Chest 1 View - Portable - in AM Result Date: 05/11/2021 Narrative: EXAMINATION: XR CHEST 1 VIEW HISTORY: The patient is a 60-year-old male who has had cardiac surgery. Comparison made with the previous study dated 05/10/2021. TECHNIQUE: AP portable view of the chest. FINDINGS: Lungs clear. Heart not enlarged. Aortic atherosclerosis. No failure. The right IJ [place] catheter has been retracted with its tip in the distal superior vena cava. Impression: IMPRESSION: No failure. Electronically signed by: Elvira Blackman M.D. XR Chest 1 View - Portable - in AM Result Date: 05/10/2021 Narrative: EXAMINATION: XR CHEST 1 VIEW DATE: 05/10/2021 2:40 AM COMPARISON: 05/09/2021 HISTORY: 60-year-old man cardiac surgery follow-up FINDINGS:Compared with study the previous day, significant improvement. There is cardiomegaly with postsurgical changes with continued and decreasing failure. Bibasilar atelectasis with left pleural fluid decreasing. No pneumothorax. [place] catheter remainsin place Impression: Decreasing failure, atelectasis and left effusion. Electronically signed by: Deandre Lomeli M.D. XR Chest 1 View - Portable - in AM Result Date: 05/09/2021 Narrative: EXAMINATION: XR CHEST 1 VIEW DATE: 05/09/2021 4:10 AM HISTORY: 60-year-old man cardiac surgery follow-up FINDINGS:Compared with study the previous day, significant improvement. There is cardiomegaly with postsurgical changes with continued but decreasing failure. Bibasilar atelectasis with left pleural fluid decreasing. No pneumothorax. [place] catheter remains in place Impression: Decreasing failure, atelectasis and left effusion. Electronically signed by: Deandre Lomeli M.D. XR Chest 1 View - Portable - in AM Result Date: 05/08/2021 Narrative: EXAMINATION: XR CHEST 1 VIEW DATE: 05/08/2021 4:15 AM HISTORY: 60-year-old man cardiac surgery follow-up FINDINGS:Compared with study the previous day, significant improvement. There is cardiomegaly with postsurgical changes with continued but decreasing failure. Bibasilar atelectasis with left pleural fluid. No pneumothorax. [place] catheter remains in place Impression: Decreasing failure. No pneumothorax. Electronically signed by: Deacon Cummings M.D. XR Chest 1 View - Portable - in AM Result Date: 05/07/2021 Narrative: EXAMINATION: XR CHEST 1 VIEW DATE: 05/07/2021 3:55 AM HISTORY: 60-year-old man follow-upcardiac surgery FINDINGS:Compared with study of the previous day, postsurgical changes in the heartand mediastinum with cardiomegaly are stable. [place] catheter remains in place. Left thoracostomy tube remains in place. No pneumothorax. Pulmonary vascular congestion with interstitial lung disease remain prominent. Impression: Persistent prominent interstitial lung disease with failure. Electronically signed by: Deacon Cummings M.D. XR Chest 1 View - Portable - in AM Result Date: 05/06/2021 Narrative: EXAMINATION: XR CHEST 1 VIEW DATE: 05/06/2021 4:05 AM INDICATION: Cardiac surgery. COMPARISON: 05/05/2021. FINDINGS: No pneumothorax or pleural effusion. Similar-appearing pulmonary vascular congestion and interstitial opacities most notable in the bilateral upper lobes consistent with pulmonary edema. Pulmonary catheter catheter, left thoracostomy tube, and mediastinal drain are appropriately position. Intra-aortic balloon pump is appropriately positioned. Interval removal of endotracheal tube. Impression: 1. Interval removal of endotracheal tube. Remaining tubes and lines are appropriately positioned. 2. Similar-appearing cardiomegaly, pulmonary vascular congestion, and prominent bilateralinterstitial markings suggestive of interstitial pulmonary edema. Electronically signed by: Richard Zhao II, D.O. XR Chest 1 View - Portable - in AM Result Date: 05/05/2021 Narrative: EXAMINATION: XR CHEST 1 VIEW DATE: 05/05/2021 4:15 AM HISTORY: 60-year-old man cardiac surgery follow-up FINDINGS:Compared with the study of the prior day, tubes and catheters remain satisfactorily positioned. Worsening pulmonary vascular congestive changes are seen. Cardiomegaly with postsurgical changes stable. No pneumothorax. Impression: Increasing failure. Electronically signed by: Deacon Cummings M.D. XR Chest 1 Vw Portable Result Date: 05/05/2021 Narrative: EXAMINATION: XR CHEST 1 VIEW DATE: 05/04/2021 8:40 PM HISTORY: 60-year-old man coronary artery bypass follow-up FINDINGS:Compared with the study of earlier the same day, postsurgical changes now evident within the heart and mediastinum with cardiomegaly. Interval placement of endotracheal tube, nasogastric tube, [place] catheter, left thoracostomy tube and mediastinal drain all in satisfactory position. No pneumothorax. Interstitial lung disease with mild pulmonary vascular congestive changes. Aortic balloon pump is no longer seen. Impression: Tube placements with postsurgical changes with cardiomegaly with interstitial lung disease and mild failure with no pneumothorax. Electronically signed by: Deacon Cummings M.D. XR Chest 1 Vw Portable Result Date: 05/04/2021 Narrative: EXAMINATION: XR CHEST 1 VIEW DATE: 05/04/2021 9:05 AM HISTORY: Coronary artery disease FINDINGS:Comparison is made with study of 2 days earlier. Cardiomegaly, COPD with interstitial lung disease stable. Mild failure. Aortic balloon pump stable in position at the proximal descending aorta. No pneumothorax. No new infiltrates. Impression: Stable appearance. COPD cardiomegaly, with mild failure suspected. Electronically signed by: Deacon Cummings M.D. XR Chest 1 Vw Portable Result Date: 05/02/2021 Narrative: EXAMINATION: XR CHEST 1 VIEW DATE: 05/02/2021 5:15 AM INDICATION: Intra-aortic balloon pump. COMPARISON: 05/01/2021. FINDINGS: Appropriately positioned intra-aortic balloon pump appears unchanged. No pneumothorax or pleural effusion. Mixed reticular and alveolar opacities demonstrated inall lung lobes appear most significant in the upper lobes and perihilar regions, unchanged. Impression: 1. Appropriately positioned intra-aortic balloon pump. 2. Similar mixed reticular and alveolar opacities most notable in the bilateral upper lobes and perihilar region. Electronically signed by: Richard Lopez II, D.O. XR Chest 1 Vw Portable Result Date: 05/02/2021 Narrative: EXAMINATION: XR CHEST 1 VIEW DATE: 05/01/2021 8:15 PM INDICATION: Hypoxia. COMPARISON: None. FINDINGS: No pneumothorax. No pleural effusion. Mixed reticular and alveolar opacities are demonstrated in all lung lobes but demonstrate an upper lobe and perihilar predominance. Findings may represent pulmonary edema on background of centrilobular emphysematous changes. Underlying infectious process not entirely excludable. Cardiac mediastinal silhouette is stable in appearance. No acute osseous abnormality. Impression: Mixed reticular and alveolar opacities are demonstrated in all lung lobes but demonstrate an upper lobe and perihilar predominance. Findings may represent pulmonary edema on background ofcentrilobular emphysematous changes. Electronically signed by: Richard Lopez II, D.O. Transthoracic Echo (TTE) Limited Result Date: 05/07/2021 Narrative: [place] [address] Limited Echocardiogram Report Patient Name: DEEPAK ALVARADO : 1960 StudyDate: 05/07/2021 12:16:52 PM Gender: M Tech: Location: [place] [address] Ref.Provider: RHINA GRANADOS Height(Cm): 175 BSA: 2.1 Weight(Kg): 91 Heart Rate: 82 BP: 127/44 Quality: Good Order Provider: Dr. Sutton Procedures: Echocardiographic Report: Limited transthoracic echocardiogram with 2D and M-Mode. Measurements: 2D/M Mode Measurement Value Normal Range LVIDd 2D 3.43 [ 4.20 -5.90 ] cm LVIDs 2D 2.59 [ 2.30 - 3.90 ] cm LVPWd 2D 1.01 [ 0.60 - 1.00 ] cm IVSd 2D 0.71 [ 0.60 - 0.90 ] cm Findings: Left Ventricle: Reduced left ventricular cavity size. Mild global left ventricular systolic dysfunction. Ejection fraction is measured at 42 %. These segments of the LV are hypokinetic: apical anterior segment. Pericardium: Trivial pericardial effusion. No echocardiographic evidence to suggest pericardial tamponade. Conclusions: Reduced left ventricular cavity size. Mild globalleft ventricular systolic dysfunction. Ejection fraction is measured at 42 %. These segments of theLV are hypokinetic: apical anterior segment. Trivial pericardial effusion. No echocardiographic evidence to suggest pericardial tamponade. Electronically Signed By: Gianni Francois MD, [facility] 2021-05-07 12:54:09 [employer]AFF [employer]ESTER Transthoracic Echo Complete W Doppler/CF Result Date: 05/02/2021 Narrative: [place] [address] Echocardiogram Report Patient Name: DEEPAK ALVARADO W : 1960 Study Date: 05/02/2021 8:50:02 AM Gender: M Tech: Location: [place] [address] Ref Provider: NALINI CLAYTONHeight(Cm): 175 BSA: 2.11 Weight(Kg): 92 Heart Rate: 89 BP: 102/52 Quality: Good Order Provider: NALINI CLAYTON PROCEDURES: Echocardiographic Report: Transthoracic echocardiogram with complete 2D, M-Mode, and color Doppler examination. INDICATIONS: Free Text. Measurements: 2D/M Mode DopplerMeasurement Value Normal Range Measurement Value Normal Range EF Teich 2D 30.0 [ 55.0 - 70.0 ] percent CHRISTINA Vmax 2.04 [ 2.00 - 4.00 ] cm2 EF Mod 4C 42.2 [ 55.0 - 70.0 ] percent AV Mean PG 5 [ 2 - 4 ]mmHg LVIDd 2D 4.54 [ 4.20 - 5.90 ] cm AV Peak Ramesh 1.54 [ 1.00 - 1.70 ] m/s LVIDs 2D 3.91 [ 2.30 - 3.90 ] cm AV VTI 26.93 cm LVPWd 2D 0.92 [ 0.60 - 1.00 ] cm LVOT Diam 2.20 [ 1.70 - 2.10 ] cm IVSd 2D0.76 [ 0.60 - 0.90 ] cm LVOT Peak Ramesh 0.83 [ 0.70 - 1.10 ] m/s LA Dimension MM 5.08 [ 3.00 - 4.00 ]cm LVOT VTI 13.82 [ 20.00 - 30.00 ] cm AoR Diam MM 4.12 [ 2.60 - 3.70 ] cm MV E Peak Ramesh 0.85 [ 0.60 - 1.30 ] m/s LA Volume Index 20.83 [ 16.00 - 28.00 ] cc/m2 MV A Peak Ramesh 1.14 [ 1.00 - 1.20 ] m/s ACS MM 1.91 [ 1.50 - 2.60 ] cm MV Mean PG 1 [ <= 5 ] mmHg MV PHT 43 [ 20 - 100 ] msec MVA 2.20 MV Decel Time 137 [ 104 - 258 ] msec PV Peak Ramesh 1.10 [ 0.40 - 0.80 ] m/s TR Peak Ramesh 1.32 [ 1.00- 2.80 ] m/s TR Peak PG 7 mmHg RVSP 16.93 [ 10.00 - 36.00 ] mmHg E' 0.06 E/E' 14.00 Measurement Value Normal Range Measurement Value Normal Range 2D/M Mode Doppler - FINDINGS: Atrial Septum: Normalatrial septum. Left Ventricle: Normal left ventricular size. Left ventricle not well visualized. There is severe hypokinesis of the mid anteroseptal, anterior, and apical [place]. Normal left ventricular wall thickness. Impaired diastolic relaxation Grade I. Ejection fraction is visually estimated at40 %. Left Atrium: The left atrium is normal in size. Right Ventricle: Normal right ventricular size. Normal right ventricular systolic function. Right Atrium: The right atrium is normal in size. Aortic Valve: Normal structure of the aortic valve. No evidence of hemodynamically significant aortic stenosis by Doppler. No aortic regurgitation. Mitral Valve: Normal structure of the mitral valve. Trivial regurgitation of the mitral valve. Pulmonic Valve: Pulmonic valve not well visualized. Trivial regurgitation in the pulmonic valve. Tricuspid Valve: Normal structure of the tricuspid valve. Trivia l regurgitation in the tricuspid valve. Pericardium: Normal pericardium with no significant pericardial effusion. Aorta: Normal aortic root. IVC: Normal size and normal respiratory collapse consistent with normal right atrial pressure (<5 mmHg). CONCLUSIONS: Technically difficult study with limited views. Normal left ventricular size. Left ventricle not well visualized. There is severe hypokine sis of the mid anteroseptal, anterior, and apical [place]. Normal left ventricular wall thickness. Impaired diastolic relaxation Grade I. Ejection fraction is visually estimated at 40 %. Normal right ventricular size. Normal right ventricular systolic function. Normal structure of the mitral valve. Trivial regurgitation of the mitral valve. Normal structure of the tricuspid valve. Trivial regurgitation in the tricuspid valve. Electronically Signed By: Rylee Brito DO, FACJustyna, VILMA, FAISAL 2021-05-02 14:07:25 STAFF FORESTER CC: CC: CC: ASSESSMENT/PLAN Hyponatremia from SIADH and possibly from zaroxylyn use. Work up for hyponatremia ongoing. PO FR If in clinical fluid overload, can use tolvaptan. Renal fn is better. Na better with loop diuresis, use PRN. Daily BMP. Na 130 and acceptable. Midodrine for hypotension. DC lisinopril. NAGMA noted Continue oral bicarb, monitor CO2 ?? Recent bladder tumor removal with hematuria. ?? -??Urology is following.H/H stable -Cysto vs conservative tx. -Voiding trial, hematuria has stopped. -Epistaxis Use nasal pillows. -CHF with decompensation Continue diuresis, diuretics stopped by audio director. RHC not done. Agree with Chandu. ?? Hypokalemia from diuresis. Replace PRN. ?? 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 COVID positive. Per protocol. On Remdisivir and Dex. Resp failure Acute on chronic, needs close monitoring, O2 being weaned ?? Syncopal episode -(+) orthostasis -receiving albumin -IV lasix was discontinued. ??There is a 1x order for zaroxolyn 10mg this am- recommend holding fornow. ??D/w RN -Midodrine for BP Coronary artery disease -s/p CABG post STEMI -??underwent four-vessel bypass ??MAE to the LAD, sequential saphenous vein graft to diagonal and obtuse marginal and a vein graft to the PDA. -s/p??low dose dobutamine -paced rhythm ?? Moderate LV dysfunction -s/p IV??lasix??and??low dose??dobutamine -Beta blockers, ??[place] once off dobutamine-would hold off adding given syncopal episode this am -repeat ECHO 05/07 EF 42% (see above) ?Nonsustained ventricular tachycardia -no recurrence of VT -K 3.7, Mg??2.0. ??Supplement to keep K >/= 4.0, Mg >/= 2.0 ?Diabetes mellitus -?on lantus and SSI ?? COPD: ?? -on?O2 NC??4L (dried blood to L nare humidified o2 ordered) ?? Dyslipidemia -?Continue atorvastatin. ?PAD -?Stable ? Anemia -Hb??11.4 (10.5)??(8.6) -monitor-continues to be stable today ?? I can be reached at [phone] with any concerns. Thank you Lc Simons MD for the consult. Tereza Mccullough NP [employer] [facility] [phone] Cosigned by Ashley Fox MD at 06/24/2021 3:21 PM STAFF FORESTER F FORESTER F FORESTER * Erika Mayer NP - 05/30/2021 7:00 AM CST Images from the original note were not included. Critical Care Medicine Daily Progress Team: Community AM Subjective Patient is a 60 y.o. y/o male admitted on 05/01/2021 5:20 PM with the following indication(s) for ICU care hypoxemic respiratory failure, pulmonary edema, hypokalemia, shock Interval History: -high flow NC -aggressive pulmonary hygiene -cont Vanc/Cefe for 10 day course per ID -LEDs pending -auto-diuresing well -replace electrolytes HPI (05/17) 60M smoker hx copd, obesity, pvd, htn, hld, dm2 & CAD s/p multiple LAD stents who p/w anterior STEMI after bladder procedure on 04/29. [facility] was taken to [facility] on 04/30 where they found in-stent thrombosis and an angioplasty was performed but stent could not be placed. A balloon pump was placed and the patient was transferred to the CVU. CT-surgery was consulted for CABG. The patie nt underwent a 4 vessel cabg on 05/04 w/ Dr. Granados (MAE->LAD, Saph vein->diag & obtuse, Saph->PDA). He developed rebleeding from his bladder tumor and this was adressed by urology. Heself extubated the next day after his CABG. His osorio was removed yesterday and he is currently post op day 11 from the CABG. He has been getting diuresed on the floor but has unfortunately had increasing oxygen requirement for the last 24 hours despite diuresis. He is currently on a non-rebreatherand being transferred to the ICU. Hospital Course 04/29 Cystoscopy at [facility] 04/30 STEMI, [facility] -> instent thrombosis, angioplasty, IABP, transfer to [facility] 05/04/21: Increased blood clot from osorio and obstruction with pain. 05/05/21: Brief asystole o/n w turning. Stable after. Self extubated in AM. 05/06/21: NAEON. Maintained on CPAP and optiflow. 05/07/21: NAEON. Up in chair at time of exam. TTF 05/10 near syncopal episode 05/14 cystoscopy with clot removal and fulguration of bleeding 05/17 readmit to ICU with pulmonary edema, lasix drip 05/18 Nasal cannula, on/off pressors, Negative VQ, ACTH Stim unremarkable 05/19 COVID positive, 15 L/NC, Remdesivir, dexamethasone 05/21 coude catheter placed, remains on optiflow, updated 05/22 increase seroquel, on optiflow 40L 75% 05/23 HF meds started, Lasix 40mg?? 05/24 FiO2 at 60% 05/25 PE protocol 05/26 pneumonia PCR ++++, start Vancomycin and Cefepime 05/27 Plavix resumed, overnight mild hematuria, Optiflow 05/28: Plavix, Optiflow, hypoxia x 1 getting up to chair 05/29 Optiflow, decadron ended 05/30 HF NC Scheduled Medications: albuterol HFA, 8 puff, inhalation, Q4H While awake (RT) aspirin, 81 mg, oral, Daily atorvastatin, 80 mg, oral, Nightly carvediloL, 3.125 mg, oral, BID with meals (bkfst, dinner) cefepime, 2,000 mg, intravenous, Q8H LEAH clopidogreL, 75 mg, oral, Daily dapagliflozin, 10 mg, oral, Daily enoxaparin, 40 mg, subcutaneous, Daily-2100 insulin lispro, 0-10 Units, subcutaneous, TID with meals insulin lispro, 0-5 Units, subcutaneous, Nightly lidocaine, 1 patch, transdermal, Daily lisinopriL, 5 mg, oral, Daily midodrine, 15 mg, oral, TID pantoprazole DR, 40 mg, oral, Daily polyethylene glycol, 17 g, oral, Q12H QUEtiapine, 50 mg, oral, Nightly senna-docusate, 2 tablet, oral, Q12H sodium bicarbonate, 1,300 mg, oral, BID sodium chloride 0.9%, 0.5-20 mL, intra-catheter, Q8H LEAH tamsulosin, 0.4 mg, oral, Daily with dinner vancomycin, 1,750 mg, intravenous, Q12H PRN Medications: ??? acetaminophen ? ? al & mag hydroxide aojcfsprsoo-qwejfwqfupxlidl-tsmraakjl-nystatin ??? albuterol ??? dextrose OR dextrose ??? dextrose OR [DISCONTINUED] dextrose ??? glucagon ??? guaiFENesin ??? ondansetron Objective Vitals: Most Recent: Vitals: 05/30/21 0700 BP: 108/74 Pulse: 80 Resp: 18 Temp: SpO2: 93% 24hr Min/Max: Temp Min: 36.8 ??C (98.2 ??F) Max: 37 ??C (98.6 ??F) Pulse Min: 74 Max: 119 BP Min: 84/56 Max: 118/67 Resp Min: 16 Max: 34 SpO2 Min: 90 % Max: 100 % LDA: Introducer 05/04/21 Right Internal jugular (Active) Placement Date/Time: 05/04/21 (c) 1441 Hand Hygiene Performed: Yes Orientation: Right Location: Internal jugular Description (optional): multi-lumen access catheter (MAC) Number of days: 12 I/O: Date 05/29/21 07 - 05/30/21 0659 05/30/21 07 - 05/31/21 0659 Shift [id number] 0992-6286 24 Hour Total 0299-1917 8325-6493 24 Hour Total INTAKE P.O. 840 130 970 Shift Total(mL/kg) 840(11) 130(1.7) 970(12.7) OUTPUT Urine(mL/kg/hr) 1525(1.7) 1025(1.1) 2550(1.4) Shift Total(mL/kg) 1525(20) 1025(13.4) 2550(33.4) [facility] -058 -178 -5282 Weight (kg) 76.3 76.3 76.3 76.3 76.3 76.3 Physical Exam: General appearance: ill appearing male lying in bed HEENT: Normocephalic, without obvious abnormality, atraumatic, PERRLA Lungs: coarse to auscultation bilaterally Heart: regular rate and rhythm, S1, S2 normal, no murmur, click, rub or gallop Abdomen: soft, non-tender; bowel sounds normal; no masses, no organomegaly Extremities: extremities normal, warm and well-perfused Pulses: radial, DP, PT 2+ and symmetric Skin: Skin color, texture, turgor normal. No rashes or lesions Neurologic: A&Ox 2-3, following commands. Knows year and month, not date. Knows at hospital, but wrong name Lab/Radiology/Diagnostic Review: Laboratory review: Lab results in the last 24 hours: Recent Results (from the past 24 hour(s)) POCT glucose Collection Time: 05/29/21 11:55 AM Result Value Ref Range Glucose, POC 274 (H) 70 - 199 mg/dL Beta-hydroxybutyrate Collection Time: 05/29/21 2:42 PM Result Value Ref Range Beta-Hydroxybutyrate <0.2 <=0.5 mmol/L POCT glucose Collection Time: 05/29/21 4:56 PM Result Value Ref Range Glucose, POC 234 (H) 70 - 199 mg/dL Vancomycin level trough Draw trough 30 minutes prior to 4th dose. Collection Time: 05/29/21 5:09 PM Result Value Ref Range Vancomycin trough 13.8 10.0 - 20.0 mcg/mL POCT glucose Collection Time: 05/29/21 9:43 PM Result Value Ref Range Glucose, POC 220 (H) 70 - 199 mg/dL Phosphorus Collection Time: 05/30/21 4:05 AM Result Value Ref Range Phosphorus, pl 2.4 2.3 - 4.5 mg/dL Magnesium Collection Time: 05/30/21 4:05 AM Result Value Ref Range Magnesium 1.9 1.4 - 2.5 mg/dL CBC without differential Collection Time: 05/30/21 4:05 AM Result Value Ref Range WBC 14.4 (H) 3.8 - 9.9 K/cumm Hgb 10.0 (L) 13.0 - 17.5 g/dL Hct 29.8 (L) 38.9 - 50.3 % Plt 467 (H) 150 - 400 K/cumm MPV 11.2 9.1 - 12.3 fL RBC 3.23 (L) 4.30 - 5.80 M/cumm MCV 92.3 81.3 - 96.4 fL MCH 31.0 27.1 - 33.3 pg MCHC 33.6 32.3 - 35.7 g/dL RDW CV 14.0 11.1 - 14.9 % RDW SD 46.5 35.7 - 48.1 fL NRBC abs 0.00 0.00 - 0.01 K/cumm Basic metabolic panel Collection Time: 05/30/21 4:05 AM Result Value Ref Range Sodium 131 (L) 135 - 145 mmol/L Potassium, pl 4.0 3.3 - 4.9 mmol/L Chloride 100 97 - 110 mmol/L CO2 20 (L) 22 - 32 mmol/L Anion gap 11 2 - 15 mmol/L BUN 20 8 - 25 mg/dL Creatinine 0.47 (L) 0.80 - 1.30 mg/dL Glucose 144 70 - 199 mg/dL Calcium 8.6 8.5 - 10.3 mg/dL eGFR Collection Time: 05/30/21 4:05 AM Result Value Ref Range eGFR 122 mL/min/1.73 m2 POCT glucose Collection Time: 05/30/21 7:54 AM Result Value Ref Range Glucose, POC 125 70 - 199 mg/dL No results found. Plan: Neuro: #Acute pain - Tylenol PRN - Lidocaine patches #Insomnia - Seroquel CV: #Severe multivessel CAD s/p CABG #STEMI #HFrEF, chronic - S/p CABG by MD Granados 05/04 - CCL (04/30) -> in-stent restenosis, unsuccessful angioplasty, IABP placed, IABP removed 05/06 - ASA/Atorvastatin/Plavix - Coreg and lisinopril --> hold - Cardiology following - CTS following - TTE (05/17) -> EF 35-40% #hypotension -hold lisinopril and coreg this am Pulmonary: #Acute hypoxic respiratory failure 2/2 #COVID 19 pneumonia #HCAP, H. Flu, moraxilla, and MRSA - currently HF NC 10L - COVID 19 positive (05/19) - s/p Remdesivir and decadron - Aggressive pulmonary hygiene, IS, OOBTC in am - Maintain sats> 92% - Vanc/Cefe for 10 day course - unable to self prone d/t recent open heart surgery (usually wait ~8 weeks before can lay on stomach) -unable to receive Baricitinib d/t multi-infection GI: Diet: Mechanical soft PUD PPx: Pantoprazole Bowel regimen: Docusate/Senna/Urvashi Endo: #Hyperglycemia, likely 2/2 stress response - Glycemic control - SSI Currently on farxiga (Consider d/c if procedure upcoming or if NPO for some time) - Frequent accuchecks - Endocrine managing Renal: - FBG net negative 500 to 1L - trend renal function, avoid nephrotoxins, renal dose medications - optimize electrolytes with caution to renal function -goal K ~4, Mg > 2.2, phos > 3, iCAL > 4.5 -provide supplement as needed -AM BMP and electrolytes check #Hematuria 2/2 #Bladder tumor - (05/14) Cystoscopy for clot evacuation and cessation of bleeding sites - Mild hematuria improving - Urology following - Flomax Heme: #ABLA 2/2 surgery - No active signs of bleeding - Transfuse for hgb < 8 - CBC as indicated -DVT PPX: SCD's/Lovenox #high risk for coagulopathy 2/2 covid 19 pneumonia -d-dimer rising -LEDs pending -05/25 CTPE neg ID: #leukocytosis 2/2 COVID 19 pneumonia #HCAP, H. Flu, Moraxella, MRSA, Enterovirus and Rhinovirus - s/p Remdesivir and Dexamethasone - Vanc/Cefe for 10 day course (day 4) - ID Following - CBC in am - CXR in am for evaluation of lung escamilla - Trend WBC and fever curve ICU standards of care: Restraints: NA Physical therapy/Activity: PT/OT- progressive mobility Access: RUE PICC (05/18) Other: piotr Goals of care: Full code Community AM Assessment and plan has been reviewed with attending, Dr. Rao Mayer NP [phone], [place] 1 Critical Care Medicine [facility] in [facility] Cosigned by Trinh Yeh MD at 06/01/2021 8:34 AM STAFF FORESTER F FORESTER F FORESTER * Alejandro Pratt MD - 05/30/2021 6:25 AM CST Pulmonary Daily Progress Chief complaint/reason for consult: Respiratory failure. Interval History: Pt transitioned from Optiflow to 10L HFNC SaO2 90%, readily desaturates when talking Denies dyspnea; cough improved Afebrile alert No sputum production No NVD COVID positive 05/19/21 Presenting History: 60 yo man w COPD, DM, CAD/stents admitted 05/01/21 with chest pain. Had recent hematuria as well. Workup revealed an acute MT. Cath showed multi-vessel CAD. Had balloon pump placed. CABG x 4 done on 05/04/21. He was continued on mechanical ventilation and self extubated this AM (05/05/21). He is on multiple pressors. Sedated with precedex. Some tachypnea. A balloon pump is in place. Current tobacco use. COPD listed as prior diagnosis. No inhalers on home med list. Allergies: Allergies Allergen Reactions ??? Metoclopramide Medications: Scheduled Meds:albuterol HFA, 8 puff, inhalation, Q4H While awake (RT) aspirin, 81 mg, oral, Daily atorvastatin, 80 mg, oral, Nightly carvediloL, 3.125 mg, oral, BID with meals (bkfst, dinner) cefepime, 2,000 mg, intravenous, Q8H LEAH clopidogreL, 75 mg, oral, Daily dapagliflozin, 10 mg, oral, Daily enoxaparin, 40 mg, subcutaneous, Daily-2100 insulin lispro, 0-10 Units, subcutaneous, TID with meals insulin lispro, 0-5 Units, subcutaneous, Nightly lidocaine, 1 patch, transdermal, Daily lisinopriL, 5 mg, oral, Daily midodrine, 15 mg, oral, TID pantoprazole DR, 40 mg, oral, Daily polyethylene glycol, 17 g, oral, Q12H QUEtiapine, 50 mg, oral, Nightly senna-docusate, 2 tablet, oral, Q12H sodium bicarbonate, 1,300 mg, oral, BID sodium chloride 0.9%, 0.5-20 mL, intra-catheter, Q8H LEAH tamsulosin, 0.4 mg, oral, Daily with dinner vancomycin, 1,750 mg, intravenous, Q12H Continuous Infusions: PRN Meds:.??? acetaminophen ? ? al & mag hydroxide hemlaelcvxn-ypaheqgpawyzytw-qszjprqsy-nystatin ??? albuterol ??? dextrose OR dextrose ??? dextrose OR [DISCONTINUED] dextrose ??? glucagon ??? guaiFENesin ??? ondansetron ROS Above review of system reviewed on 05/30/2021 Vitals: Vitals: 05/30/21 0230 05/30/21 0300 05/30/21 0330 05/30/21 0400 BP: 108/65 101/68 (!) 86/50 94/57 Pulse: 83 85 84 84 Resp: 17 17 17 16 Temp: TempSrc: SpO2: 90% Weight: Height: Temp (24hrs), Av.8 ??C (98.3 ??F), Min:36.8 ??C (98.2 ??F), Max:36.9 ??C (98.4 ??F) FiO2 (%): [35 %-50 %] 35 % Intake/Output Summary (Last 24 hours) at 05/30/2021 0625 Last data filed at 05/29/2021 1800 Gross per 24 hour Intake 840 ml Output 1525 ml Net -685 ml Physical Exam Constitutional: General: He is not in acute distress. Appearance: He is well-developed. HENT: Head: Normocephalic and atraumatic. Eyes: General: No scleral icterus. Conjunctiva/sclera: Conjunctivae normal. Neck: Thyroid: No thyromegaly. Cardiovascular: Rate and Rhythm: Normal rate and regular rhythm. Heart sounds: No murmur heard. Pulmonary: Effort: Pulmonary effort is normal. No respiratory distress. Breath sounds: Normal breath sounds. No wheezing, rhonchi or rales. Chest: Comments: Sternotomy incision Abdominal: General: Bowel sounds are normal. Palpations: Abdomen is soft. Skin: General: Skin is warm and dry. Neurological: Mental Status: He is alert. Lab/Radiology/Diagnostic Review: Labs: Recent Labs Lab Units 05/30/21 0405 05/29/21 0528 05/28/21 0247 WBC K/cumm 14.4* 16.1* 12.1* HEMOGLOBIN g/dL 10.0* 10.1* 11.2* HEMATOCRIT % 29.8* 31.3* 34.3* PLATELETS K/cumm 467* 508* 468* Recent Labs Lab Units 05/30/21 0405 05/29/21 2143 05/29/21 1656 05/29/21 0801 05/29/21 0528 05/28/21 0440 05/28/21 0247 SODIUM mmol/L 131* -- -- -- 130* -- 135 POTASSIUM PLASMA mmol/L 4.0 -- -- -- 4.1 -- 3.7 CHLORIDE mmol/L 100 -- -- -- 101 -- 107 CO2 mmol/L 20* -- -- -- 18* -- 17* ANIONGAP mmol/L 11 -- -- -- 11 -- 11 GLUCOSE mg/dL 144 -- -- -- 105 < > 68* POC GLUCOSE MONITOR mg/dL -- 220* 234* < > -- < > -- BUN SERUM mg/dL 20 -- -- -- 18 -- 19 CREATININE mg/dL 0.47* -- -- -- 0.38* -- 0.40* CALCIUM mg/dL 8.6 -- -- -- 8.6 -- 7.7* < > = values in this interval not displayed. Recent Labs Lab Units 05/25/21 0951 PH ART 7.47* PCO2 ART mmHg 32* PO2 ART mmHg 72* HCO3 ART (CALC) mmol/L 24 BASE EXC ART mmol/L 0 O2 SAT ART (JOELLE) % 95 Respiratory pathogen pcr 05/26: + rhinovirus Legionella Ag: negative Pneumococcal Ag: negative Imaging: CT chest 05/19/21: b gg inf, severe emphysema CT chest 05/25/21: b inf, emphysema, no PE Other diagnostic tests: I have personally reviewed above laboratory findings, chest imaging, and diagnostic tests 05/30/2021 Assessment and Plan: Acute respiratory failure Acute MT w CAD s/p CABG x 4 on 05/04/21, past hx multiple stents Cardiogenic shock, resolved Cardiomyopathy EF 40% V fib COPD: severe emphysematous changes on CT Anemia Hematuria s/p cystoscopy/fulguration COVID 19, diagnosed 05/19/21, resp status began worsening 05/15/21 Possible bacterial pneumonia Rhinovirus ?? Recs: Oxygen support, adjust as needed Dexamethasone: completed Baricitinib: stopped 05/26 Remdesivir: completed On cefepime and vancomycin as per ID Incentive spirometry Scheduled albuterol Increase activity as tolerated Chart reviewed F FORESTER * Yves Weinberg MD - 05/29/2021 9:03 PM CST Nephrology Progress Note [facility] SUBJECTIVE 05/29/21 Remains frail. BP soft, on hi dose midodrine. Still requiring sig oxygen. Very deconditioned. May need SNF vs LTAC. Na 130, bicarb 18. Cr normal. 05/28/21 Appears better. All labs and data reviewed. Na and CR stable. Started on lisinopril. Will DC. On high dose midodrine. O2 sats still not Acceptable. Na 135, bicarb 17. Cr normal. Mg low, being replaced. 05/27/21 Doing about the same. Has completed tx for COVID. Still in ICU. All labs reviewed. 05/26/21 Doing fair. Appears comfortable. Some dyspnea. All labs and data reviewed. Na and Cr stable. Good UO. 05/25/21 Doing fair. All labs reviewed. Renal fn nl. Na 132. Overall slowly improving. 05/24/21 Pt seen/examined. All labs and data reviewed. Getting IV lasix PRN. Na 133, lytes and renal fn stable. 05/23/21 Pt seen/examined. All labs reviewed. Receiving K phos. BP soft, on hi dose midodrine. Na 132. I gave lasix 40 iv times 1 for falling UO. Remains in ICU. 05/22/21 Pt seen/examined. All labs and data reviewed. Na 134, Cr 0.62. Dyspnea better. Eager to go home but remains in ICU. Stable renal fn and lytes. OK for loop diuretics PRN. Avoid thiazides. 05/21/21 Pt seen/examined. All labs reviewed. Off lasix drip. Still dyspneic. Renal fn better. Na 135. 05/20/21 Pt seen/examined. All labs and data reviewed. COVID pos. On Dex and remdisivir. On lasix drip. Na 130, Cr 1.44. 05/19 Cr 1.41 Na 130. Started on Corlanor. Appears stable. BP remains very soft. UO not accurate. 05/17 Transferred to ICU for hi O2 requirements. Has left nostril epistaxis. On low dose pressors and lasix and insulin drip. Na 128, should improve with loop diuresis. Cr 1.2. 05/16 Creatinine stable and sodium trending up.On IV lasix,lytes wnl.Osorio out,having some problems with retention- nurses in contact with urology,doing bladder scans. 05/15/21 Doing fair. Osorio out. Has not voided yet. Na 131 with loop diuresis and improved. All labs and data reviewed. Excellent UO. Doing fair. Some flank pain and mild dyspnea. Na 127 and a little lower. BP better. Agreeable to cysto, but urology planning on conservative tx. Will start loop diuresis. OBJECTIVE Vitals: Vitals: 05/29/21 1500 05/29/21 1600 05/29/21 1640 05/29/21 1700 BP: 106/78 105/64 113/67 BP Location: Right arm Patient Position: HOB 30 degrees Pulse: 91 79 96 Resp: Temp: 36.9 ??C (98.4 ??F) TempSrc: Oral SpO2: 96% Weight: Height: Intake/Output Summary (Last 24 hours) at 05/29/2021 2103 Last data filed at 05/29/2021 1800 Gross per 24 hour Intake 2375 ml Output 2575 ml Net -200 ml REVIEW OF SYSTEMS Review of Systems Epistaxis, dyspnea. Constitutional: Negative. HENT: Negative. Eyes: Negative. Respiratory: Negative. Cardiovascular: Negative. Gastrointestinal: Negative. Genitourinary: Negative. Musculoskeletal: Negative. Skin: Negative. Allergic/Immunologic: Negative. Hematological: Negative. All other systems reviewed and are negative. PHYSICAL EXAM Physical Exam Constitutional: Appears well-developed. O2 on HENT: wnl Head: Normocephalic. Eyes: Pupils are equal, round, and reactive to light. Neck: Normal range of motion. Neck supple. Cardiovascular: Normal rate. Pulmonary/Chest: Effort normal and breath sounds normal. Abdominal: Soft. NT,active BS Musculoskeletal: Normal range of motion. Neurological: Alert, oriented. Skin: Skin is warm. Nursing note and vitals reviewed. MEDICATIONS Current Facility-Administered Medications: ??? acetaminophen (TYLENOL) tablet 650 mg, 650 mg, oral, Q6H PRN, Eleonora Duarte NP, 650 mg at 05/29/21 1429 ? ? al & mag hydroxide ufxmwfwkjmp-zfybjlqelpwvrgn-qxdfeamjd-nystatin (MAGIC MOUTHWASH) suspension 1-1-1-1, 20 mL, swish & spit, Q4H PRN, Elena Kelly NP ??? albuterol 2.5 mg /3 mL (0.083 %) nebulizer solution 2.5 mg, 2.5 mg, nebulization, Q4H PRN (RT),Ralf Tomlinson MD, 2.5 mg at 05/17/21 0224 ??? albuterol HFA (PROVENTIL HFA,VENTOLIN HFA,PROAIR HFA) 90 mcg/actuation inhaler 8 puff, 8 puff, inhalation, Q4H While awake (RT), Ralf Tomlinson MD, 8 puff at 05/29/21 1155 ??? aspirin enteric coated tablet 81 mg, 81 mg, oral, Daily, Varsha Crowder NP, 81 mg at 05/29/21 0822 ??? atorvastatin (LIPITOR) tablet 80 mg, 80 mg, oral, Nightly, Rhina Granados MD, 80 mg at 05/28/21 2107 ??? carvediloL (COREG) tablet 3.125 mg, 3.125 mg, oral, BID with meals (bkfst, dinner), Nalini Clayton MD, 3.125 mg at 05/29/21 1732 ??? cefepime (MAXIPIME) 2,000 mg in sodium chloride 0.9% 100 mL IVPB, 2,000 mg, intravenous, Q8H LEAH, Angelo Vance MD, Last Rate: 200 mL/hr at 05/29/21 1415, 2,000 mg at 05/29/21 1415 ??? clopidogreL (PLAVIX) tablet 75 mg, 75 mg, oral, Daily, Alejandro Gonzalez NP, 75 mg at 05/29/21 0821 ??? dapagliflozin (FARXIGA) tablet 10 mg, 10 mg, oral, Daily, Stephen Melgar MD, 10 mg at ??? dextrose oral liquid liquid 15 g, 15 g, oral, Q15 Min PRN OR dextrose (D10W) 10% bolus 250 mL, 250 mL, intravenous, Q15 Min PRN, Silviano Huddleston NP ??? dextrose oral liquid liquid 15 g, 15 g, oral, Q15 Min PRN OR [DISCONTINUED] dextrose (D10W)10% bolus 250 mL, 250 mL, intravenous, Q15 Min PRN, Anibal Lara MD ??? enoxaparin (LOVENOX) syringe 40 mg, 40 mg, subcutaneous, Daily-2100, Rhina Granados MD, 40 mg at 05/28/212106 ??? glucagon injection 1 mg, 1 mg, intramuscular, Q30 Min PRN, Silviano Huddleston NP ??? guaiFENesin (ROBITUSSIN) 20 mg/mL oral liquid 200 mg, 200 mg, oral, QID PRN, Caleb Toth PA, 200 mg at 05/25/21 2353 ??? insulin lispro (HumaLOG, ADMELOG) 100 unit/mL injection 0-10 Units, 0-10 Units, subcutaneous, TID with meals, Silviano Huddleston NP, 4 Units at 05/29/21 1733 ??? insulin lispro (HumaLOG, ADMELOG) 100 unit/mL injection 0-5 Units, 0-5 Units, subcutaneous, Nightly, Silviano Huddleston NP, 2 Units at 05/28/212109 ??? lidocaine (LIDODERM) 5 % patch 1 patch, 1 patch, transdermal, Daily, Rosy Muñoz NP, Medication Removed at 05/27/212220 ??? lisinopriL (PRINIVIL,ZESTRIL) tablet 5 mg, 5 mg, oral, Daily, Nalini Clayton MD, 5 mg at 05/29/21 0946 ??? midodrine (PROAMATINE) tablet 15 mg, 15 mg, oral, TID, Silviano Huddleston NP, 15 mg at 05/29/21 1415 ??? ondansetron (ZOFRAN) injection 4 mg, 4 mg, intravenous, Q6H PRN, Rhina Granados MD ??? pantoprazole DR (PROTONIX) extended release tablet 40 mg, 40 mg, oral, Daily, Rhina Granados MD, 40 mg at 05/29/21 0817 ??? polyethylene glycol (MIRALAX) packet 17 g, 17 g, oral, Q12H, Elena Kelly NP, 17 g at 05/29/21 0946 ??? QUEtiapine (SEROquel) tablet 50 mg, 50 mg, oral, Nightly, Silviano Huddleston NP, 50 mg at 05/28/21 2107 ??? senna-docusate (PERICOLACE) 8.6-50 mg per tablet 2 tablet, 2 tablet, oral, Q12H, Martin Kelly NP, 2 tablet at 05/29/21 0946 ??? sodium bicarbonate tablet 1,300 mg, 1,300 mg, oral, BID, Yves Weinberg MD, 1,300 mg at 05/29/21 0822 ??? sodium chloride 0.9% flush 0.5-20 mL, 0.5-20 mL, intra-catheter, Q8H ELAH, Rhina Granados MD, 20 mL at 05/29/21 1400 ??? tamsulosin (FLOMAX) extended release capsule 0.4 mg, 0.4 mg, oral, Daily with dinner, Elena Kelly NP, 0.4 mg at 05/29/21 1732 ??? [START ON 05/30/2021] vancomycin (VANCOCIN) 1,750 mg in sodium chloride 0.9% 500 mL IVPB, 1,750mg, intravenous, Q12H, Lc Simons MD Lab/Radiology/Diagnostic Review: Recent Results (from the past 24 hour(s)) Phosphorus Collection Time: 12/10/21 5:28 AM Result Value Ref Range Phosphorus, pl 2.7 2.3 - 4.5 mg/dL Magnesium Collection Time: 05/29/21 5:28 AM Result Value Ref Range Magnesium 1.8 1.4 - 2.5 mg/dL CBC without differential Collection Time: 05/29/21 5:28 AM Result Value Ref Range WBC 16.1 (H) 3.8 - 9.9 K/cumm Hgb 10.1 (L) 13.0 - 17.5 g/dL Hct 31.3 (L) 38.9 - 50.3 % Plt 508 (H) 150 - 400 K/cumm MPV 11.3 9.1 - 12.3 fL RBC 3.41 (L) 4.30 - 5.80 M/cumm MCV 91.8 81.3 - 96.4 fL MCH 29.6 27.1 - 33.3 pg MCHC 32.3 32.3 - 35.7 g/dL RDW CV 13.7 11.1 - 14.9 % RDW SD 45.6 35.7 - 48.1 fL NRBC abs 0.00 0.00 - 0.01 K/cumm Basic metabolic panel Collection Time: 05/29/21 5:28 AM Result Value Ref Range Sodium 130 (L) 135 - 145 mmol/L Potassium, pl 4.1 3.3 - 4.9 mmol/L Chloride 101 97 - 110 mmol/L CO2 18 (L) 22 - 32 mmol/L Anion gap 11 2 - 15 mmol/L BUN 18 8 - 25 mg/dL Creatinine 0.38 (L) 0.80 - 1.30 mg/dL Glucose 105 70 - 199 mg/dL Calcium 8.6 8.5 - 10.3 mg/dL eGFR Collection Time: 05/29/21 5:28 AM Result Value Ref Range eGFR 133 mL/min/1.73 m2 POCT glucose Collection Time: 05/29/21 8:01 AM Result Value Ref Range Glucose, POC 91 70 - 199 mg/dL POCT glucose Collection Time: 05/29/21 11:55 AM Result Value Ref Range Glucose, POC 274 (H) 70 - 199 mg/dL Beta-hydroxybutyrate Collection Time: 05/29/21 2:42 PM Result Value Ref Range Beta-Hydroxybutyrate <0.2 <=0.5 mmol/L POCT glucose Collection Time: 05/29/21 4:56 PM Result Value Ref Range Glucose, POC 234 (H) 70 - 199 mg/dL Vancomycin level trough Draw trough 30 minutes prior to 4th dose. Collection Time: 05/29/21 5:09 PM Result Value Ref Range Vancomycin trough 13.8 10.0 - 20.0 mcg/mL Recent Labs Lab Units 05/26/21 1601 CLARITY U Clear COLOR U Yellow KETONES UR Negative NITRITE UR Negative SPEC GRAV U 1.028 UROBILINOGEN UR mg/dL <2.0 WBC UR QT /HPF 05-09* XR Chest 1 View - Portable - in AM Result Date: 05/11/2021 Narrative: EXAMINATION: XR CHEST 1 VIEW HISTORY: The patient is a 60-year-old male who has had cardiac surgery. Comparison made with the previous study dated 05/10/2021. TECHNIQUE: AP portable view of the chest. FINDINGS: Lungs clear. Heart not enlarged. Aortic atherosclerosis. No failure. The right IJ [place] catheter has been retracted with its tip in the distal superior vena cava. Impression: IMPRESSION: No failure. Electronically signed by: Elvira Blackman M.D. XR Chest 1 View - Portable - in AM Result Date: 05/10/2021 Narrative: EXAMINATION: XR CHEST 1 VIEW DATE: 05/10/2021 2:40 AM COMPARISON: 05/09/2021 HISTORY: 60-year-old man cardiac surgery follow-up FINDINGS:Compared with study the previous day, significant improvement. There is cardiomegaly with postsurgical changes with continued and decreasing failure. Bibasilar atelectasis with left pleural fluid decreasing. No pneumothorax. [place] catheter remainsin place Impression: Decreasing failure, atelectasis and left effusion. Electronically signed by: Deandre Lomeli M.D. XR Chest 1 View - Portable - in AM Result Date: 05/09/2021 Narrative: EXAMINATION: XR CHEST 1 VIEW DATE: 05/09/2021 4:10 AM HISTORY: 60-year-old man cardiac surgery follow-up FINDINGS:Compared with study the previous day, significant improvement. There is cardiomegaly with postsurgical changes with continued but decreasing failure. Bibasilar atelectasis with left pleural fluid decreasing. No pneumothorax. [place] catheter remains in place Impression: Decreasing failure, atelectasis and left effusion. Electronically signed by: Deandre Lomeli M.D. XR Chest 1 View - Portable - in AM Result Date: 05/08/2021 Narrative: EXAMINATION: XR CHEST 1 VIEW DATE: 05/08/2021 4:15 AM HISTORY: 60-year-old man cardiac surgery follow-up FINDINGS:Compared with study the previous day, significant improvement. There is cardiomegaly with postsurgical changes with continued but decreasing failure. Bibasilar atelectasis with left pleural fluid. No pneumothorax. [place] catheter remains in place Impression: Decreasing failure. No pneumothorax. Electronically signed by: Deacon Cummings M.D. XR Chest 1 View - Portable - in AM Result Date: 05/07/2021 Narrative: EXAMINATION: XR CHEST 1 VIEW DATE: 05/07/2021 3:55 AM HISTORY: 60-year-old man follow-upcardiac surgery FINDINGS:Compared with study of the previous day, postsurgical changes in the heartand mediastinum with cardiomegaly are stable. [place] catheter remains in place. Left thoracostomy tube remains in place. No pneumothorax. Pulmonary vascular congestion with interstitial lung disease remain prominent. Impression: Persistent prominent interstitial lung disease with failure. Electronically signed by: Deacon Cummings M.D. XR Chest 1 View - Portable - in AM Result Date: 05/06/2021 Narrative: EXAMINATION: XR CHEST 1 VIEW DATE: 05/06/2021 4:05 AM INDICATION: Cardiac surgery. COMPARISON: 05/05/2021. FINDINGS: No pneumothorax or pleural effusion. Similar-appearing pulmonary vascular congestion and interstitial opacities most notable in the bilateral upper lobes consistent with pulmonary edema. Pulmonary catheter catheter, left thoracostomy tube, and mediastinal drain are appropriately position. Intra-aortic balloon pump is appropriately positioned. Interval removal of endotracheal tube. Impression: 1. Interval removal of endotracheal tube. Remaining tubes and lines are appropriately positioned. 2. Similar-appearing cardiomegaly, pulmonary vascular congestion, and prominent bilateralinterstitial markings suggestive of interstitial pulmonary edema. Electronically signed by: Richard Zhao II, D.O. XR Chest 1 View - Portable - in AM Result Date: 05/05/2021 Narrative: EXAMINATION: XR CHEST 1 VIEW DATE: 05/05/2021 4:15 AM HISTORY: 60-year-old man cardiac surgery follow-up FINDINGS:Compared with the study of the prior day, tubes and catheters remain satisfactorily positioned. Worsening pulmonary vascular congestive changes are seen. Cardiomegaly with postsurgical changes stable. No pneumothorax. Impression: Increasing failure. Electronically signed by: Deacon Cummings M.D. XR Chest 1 Vw Portable Result Date: 05/05/2021 Narrative: EXAMINATION: XR CHEST 1 VIEW DATE: 05/04/2021 8:40 PM HISTORY: 60-year-old man coronary artery bypass follow-up FINDINGS:Compared with the study of earlier the same day, postsurgical changes now evident within the heart and mediastinum with cardiomegaly. Interval placement of endotracheal tube, nasogastric tube, [place] catheter, left thoracostomy tube and mediastinal drain all in satisfactory position. No pneumothorax. Interstitial lung disease with mild pulmonary vascular congestive changes. Aortic balloon pump is no longer seen. Impression: Tube placements with postsurgical changes with cardiomegaly with interstitial lung disease and mild failure with no pneumothorax. Electronically signed by: Deacon Cummings M.D. XR Chest 1 Vw Portable Result Date: 05/04/2021 Narrative: EXAMINATION: XR CHEST 1 VIEW DATE: 05/04/2021 9:05 AM HISTORY: Coronary artery disease FINDINGS:Comparison is made with study of 2 days earlier. Cardiomegaly, COPD with interstitial lung disease stable. Mild failure. Aortic balloon pump stable in position at the proximal descending aorta. No pneumothorax. No new infiltrates. Impression: Stable appearance. COPD cardiomegaly, with mild failure suspected. Electronically signed by: Deacon Cummings M.D. XR Chest 1 Vw Portable Result Date: 05/02/2021 Narrative: EXAMINATION: XR CHEST 1 VIEW DATE: 05/02/2021 5:15 AM INDICATION: Intra-aortic balloon pump. COMPARISON: 05/01/2021. FINDINGS: Appropriately positioned intra-aortic balloon pump appears unchanged. No pneumothorax or pleural effusion. Mixed reticular and alveolar opacities demonstrated inall lung lobes appear most significant in the upper lobes and perihilar regions, unchanged. Impression: 1. Appropriately positioned intra-aortic balloon pump. 2. Similar mixed reticular and alveolar opacities most notable in the bilateral upper lobes and perihilar region. Electronically signed by: Richard Lopez II, D.O. XR Chest 1 Vw Portable Result Date: 05/02/2021 Narrative: EXAMINATION: XR CHEST 1 VIEW DATE: 05/01/2021 8:15 PM INDICATION: Hypoxia. COMPARISON: None. FINDINGS: No pneumothorax. No pleural effusion. Mixed reticular and alveolar opacities are demonstrated in all lung lobes but demonstrate an upper lobe and perihilar predominance. Findings may represent pulmonary edema on background of centrilobular emphysematous changes. Underlying infectious process not entirely excludable. Cardiac mediastinal silhouette is stable in appearance. No acute osseous abnormality. Impression: Mixed reticular and alveolar opacities are demonstrated in all lung lobes but demonstrate an upper lobe and perihilar predominance. Findings may represent pulmonary edema on background ofcentrilobular emphysematous changes. Electronically signed by: Richard Lopez II, D.O. Transthoracic Echo (TTE) Limited Result Date: 05/07/2021 Narrative: [place] [address] Limited Echocardiogram Report Patient Name: DEEPAK ALVARADO : 1960 StudyDate: 05/07/2021 12:16:52 PM Gender: M Tech: Location: [place] [address] Ref.Provider: RHINA GRANADOS Height(Cm): 175 BSA: 2.1 Weight(Kg): 91 Heart Rate: 82 BP: 127/44 Quality: Good Order Provider: Dr. Sutton Procedures: Echocardiographic Report: Limited transthoracic echocardiogram with 2D and M-Mode. Measurements: 2D/M Mode Measurement Value Normal Range LVIDd 2D 3.43 [ 4.20 -5.90 ] cm LVIDs 2D 2.59 [ 2.30 - 3.90 ] cm LVPWd 2D 1.01 [ 0.60 - 1.00 ] cm IVSd 2D 0.71 [ 0.60 - 0.90 ] cm Findings: Left Ventricle: Reduced left ventricular cavity size. Mild global left ventricular systolic dysfunction. Ejection fraction is measured at 42 %. These segments of the LV are hypokinetic: apical anterior segment. Pericardium: Trivial pericardial effusion. No echocardiographic evidence to suggest pericardial tamponade. Conclusions: Reduced left ventricular cavity size. Mild global left ventricular systolic dysfunction. Ejection fraction is measured at 42 %. These segments of the LV are hypokinetic: apical anterior segment. Trivial pericardial effusion. No echocardiographic evidence to suggest pericardial tamponade. Electronically Signed By: Gianni Francois MD, [facility] :54:09 STAFF FORESTER Transthoracic Echo Complete W Doppler/CF Result Date: 05/02/2021 Narrative: [place] [address] Echocardiogram Report Patient Name: DEEPAK ALVARADO W : 1960 Study Date: 05/02/2021 8:50:02 AM Gender: M Tech: Location: [id number] Ref Provider: NALINI CLAYTONHeight(Cm): 175 BSA: 2.11 Weight(Kg): 92 Heart Rate: 89 BP: 102/52 Quality: Good Order Provider: NALINI CLAYTON PROCEDURES: Echocardiographic Report: Transthoracic echocardiogram with complete 2D, M-Mode, and color Doppler examination. INDICATIONS: Free Text. Measurements: 2D/M Mode Doppler Measurement Value Normal Range Measurement Value Normal Range EF Teich 2D 30.0 [ 55.0 - 70.0 ] percent CHRISTINA Vmax 2.04 [ 2.00 - 4.00 ] cm2 EF Mod 4C 42.2 [ 55.0 - 70.0 ] percent AV Mean PG 5 [ 2 - 4 ]mmHg LVIDd 2D 4.54 [ 4.20 - 5.90 ] cm AV Peak Ramesh 1.54 [ 1.00 - 1.70 ] m/s LVIDs 2D 3.91 [ 2.30 - 3.90 ] cm AV VTI 26.93 cm LVPWd 2D 0.92 [ 0.60 - 1.00 ] cm LVOT Diam 2.20 [ 1.70 - 2.10 ] cm IVSd 2D 0.76 [ 0.60 - 0.90 ] cm LVOT Peak Ramesh 0.83 [ 0.70 - 1.10 ] m/s LA Dimension MM 5.08 [ 3.00 - 4.00 ]cm LVOT VTI 13.82 [ 20.00 - 30.00 ] cm AoR Diam MM 4.12 [ 2.60 - 3.70 ] cm MV E Peak Ramesh 0.85 [ 0.60 - 1.30 ] m/s LA Volume Index 20.83 [ 16.00 - 28.00 ] cc/m2 MV A Peak Ramesh 1.14 [ 1.00 - 1.20 ] m/s ACS MM 1.91 [ 1.50 - 2.60 ] cm MV Mean PG 1 [ <= 5 ] mmHg MV PHT 43 [ 20 - 100 ] msec MVA 2.20 MV Decel Time 137 [ 104 - 258 ] msec PV Peak Ramesh 1.10 [ 0.40 - 0.80 ] m/s TR Peak Ramesh 1.32 [ 1.00 -2.80 ] m/s TR Peak PG 7 mmHg RVSP 16.93 [ 10.00 - 36.00 ] mmHg E' 0.06 E/E' 14.00 Measurement Value Normal Range Measurement Value Normal Range 2D/M Mode Doppler - FINDINGS: Atrial Septum: Normalatrial septum. Left Ventricle: Normal left ventricular size. Left ventricle not well visualized. The re is severe hypokinesis of the mid anteroseptal, anterior, and apical mancilla. Normal left ventricular wall thickness. Impaired diastolic relaxation Grade I. Ejection fraction is visually estimated at40 %. Left Atrium: The left atrium is normal in size. Right Ventricle: Normal right ventricular size. Normal right ventricular systolic function. Right Atrium: The right atrium is normal in size. Aortic Valve: Normal structure of the aortic valve. No evidence of hemodynamically significant aortic stenosis by Doppler. No aortic regurgitation. Mitral Valve: Normal structure of the mitral valve. Trivial regurgitation of the mitral valve. Pulmonic Valve: Pulmonic valve not well visualized. Trivial r egurgitation in the pulmonic valve. Tricuspid Valve: Normal structure of the tricuspid valve. Trivial regurgitation in the tricuspid valve. Pericardium: Normal pericardium with no significant pericardial effusion. Aorta: Normal aortic root. IVC: Normal size and normal respiratory collapse consistent with normal right atrial pressure (<5 mmHg). CONCLUSIONS: Technically difficult study with limited views. Normal left ventricular size. Left ventricle not well visualized. There is severe hypokinesis of the mid anteroseptal, anterior, and apical mancilla. Normal left ventricular wall thickness. Impaired diastolic relaxation Grade I. Ejection fraction is visually estimated at 40 %. Normal right ventricular size. Normal right ventricular systolic function. Normal structure of the mitral valve. Trivial regurgitation of the mitral valve. Normal structure of the tricuspid valve. Trivial regurgitation in the tricuspid valve. Electronically Signed By: Rylee Brito DO, FACC, FAISAL ESPARZA 2021-05-02 14:07:25 STAFF FORESTER CC: CC: CC: ASSESSMENT/PLAN Hyponatremia from SIADH and possibly from zaroxylyn use. Work up for hyponatremia ongoing. PO FR If in clinical fluid overload, can use tolvaptan. Renal fn is better. Na better with loop diuresis, use PRN. Daily BMP. Na 130 and acceptable. Midodrine for hypotension. DC lisinopril. NAGMA noted Increase oral bicarb ?? Recent bladder tumor removal with hematuria. ?? -??Urology is following.H/H stable -Cysto vs conservative tx. -Voiding trial, hematuria has stopped. -Epistaxis Use nasal pillows. -CHF with decompensation Continue diuresis, diuretics stopped by audio director. RHC not done. Agree with Chandu. ?? Hypokalemia from diuresis. Replace PRN. ?? 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 COVID positive. Per protocol. On Remdisivir and Dex. Resp failure Acute on chronic, needs close monitoring, still on high flow oxygen. ?? Syncopal episode -(+) orthostasis -receiving albumin -IV lasix was discontinued. ??There is a 1x order for zaroxolyn 10mg this am- recommend holding fornow. ??D/w RN ?? Coronary artery disease -s/p CABG post STEMI -??underwent four-vessel bypass ??MAE to the LAD, sequential saphenous vein graft to diagonal and obtuse marginal and a vein graft to the PDA. -s/p??low dose dobutamine -paced rhythm ?? Moderate LV dysfunction -s/p IV??lasix??and??low dose??dobutamine -Beta blockers, ??[place] once off dobutamine-would hold off adding given syncopal episode this am -repeat ECHO 05/07 EF 42% (see above) ?Nonsustained ventricular tachycardia -no recurrence of VT -K 3.7, Mg??2.0. ??Supplement to keep K >/= 4.0, Mg >/= 2.0 ?Diabetes mellitus -?on lantus and SSI ?? COPD: ?? -on?O2 NC??4L (dried blood to L nare humidified o2 ordered) ?? Dyslipidemia -?Continue atorvastatin. ?PAD -?Stable ? Anemia -Hb??11.4 (10.5)??(8.6) -monitor ?? I can be reached at [phone] with any concerns. Thank you Lc Simons MD for the consult. Yves Weinberg MD [employer] [phone] F FORESTER * Marek Mei NP - 05/29/2021 8:51 PM CST Images from the original note were not included. Critical Care Medicine Daily Progress Team: Community PM Subjective Patient is a 60 y.o. y/o male admitted on 05/01/2021 5:20 PM with the following indication(s) for ICU care hypoxemic respiratory failure, pulmonary edema, hypokalemia, shock Interval History: - Opiflow - Aggressive pulmonary hygiene - Vanc/Cefe for 10 day course per ID HPI (05/17) 60M smoker hx copd, obesity, pvd, htn, hld, dm2 & CAD s/p multiple LAD stents who p/w anterior STEMI after bladder procedure on 04/29. [facility] where they found in-stent thrombosis and an angioplasty was performed but stent could not be placed. A balloon pump was placed and the patient was transferred to the CVU. CT-surgery was consulted for CABG. The patie nt underwent a 4 vessel cabg on 05/04 w/ Dr. Granados (MAE->LAD, Saph vein->diag & obtuse, Saph->PDA). He developed rebleeding from his bladder tumor and this was adressed by urology. Heself extubated the next day after his CABG. His osorio was removed yesterday and he is currently post op day 11 from the CABG. He has been getting diuresed on the floor but has unfortunately had increasing oxygen requirement for the last 24 hours despite diuresis. He is currently on a non-rebreatherand being transferred to the ICU. Hospital Course 04/29 Cystoscopy [facility] 11/11 STEMI, [facility] -> instent thrombosis, angioplasty, IABP, transfer to [facility] 05/04/21: Increased blood clot from osorio and obstruction with pain. 05/05/21: Brief asystole o/n w turning. Stable after. Self extubated in AM. 05/06/21: NAEON. Maintained on CPAP and optiflow. 05/07/21: NAEON. Up in chair at time of exam. TTF 05/10 near syncopal episode 05/14 cystoscopy with clot removal and fulguration of bleeding 05/17 readmit to ICU with pulmonary edema, lasix drip 05/18 Nasal cannula, on/off pressors, Negative VQ, ACTH Stim unremarkable 05/19 COVID positive, 15 L/NC, Remdesivir, dexamethasone 05/21 coude catheter placed, remains on optiflow, updated 05/22 increase seroquel, on optiflow 40L 75% 05/23 HF meds started, Lasix 40mg?? 05/24 FiO2 at 60% 05/25 PE protocol 05/26 pneumonia PCR ++++, start Vancomycin and Cefepime 05/27 Plavix resumed, overnight mild hematuria, Optiflow 05/28: Plavix, Optiflow, hypoxia x 1 getting up to chair 05/29 Optiflow, decadron ended Scheduled Medications: albuterol HFA, 8 puff, inhalation, Q4H While awake (RT) aspirin, 81 mg, oral, Daily atorvastatin, 80 mg, oral, Nightly carvediloL, 3.125 mg, oral, BID with meals (bkfst, dinner) cefepime, 2,000 mg, intravenous, Q8H LEAH clopidogreL, 75 mg, oral, Daily dapagliflozin, 10 mg, oral, Daily enoxaparin, 40 mg, subcutaneous, Daily-2100 insulin lispro, 0-10 Units, subcutaneous, TID with meals insulin lispro, 0-5 Units, subcutaneous, Nightly lidocaine, 1 patch, transdermal, Daily lisinopriL, 5 mg, oral, Daily midodrine, 15 mg, oral, TID pantoprazole DR, 40 mg, oral, Daily polyethylene glycol, 17 g, oral, Q12H QUEtiapine, 50 mg, oral, Nightly senna-docusate, 2 tablet, oral, Q12H sodium bicarbonate, 1,300 mg, oral, BID sodium chloride 0.9%, 0.5-20 mL, intra-catheter, Q8H LEAH tamsulosin, 0.4 mg, oral, Daily with dinner [START ON 05/30/2021] vancomycin, 1,750 mg, intravenous, Q12H PRN Medications: ??? acetaminophen ? ? al & mag hydroxide sywtokqrcxp-qjdpflxbmfppnhx-umygugrph-nystatin ??? albuterol ??? dextrose OR dextrose ??? dextrose OR [DISCONTINUED] dextrose ??? glucagon ??? guaiFENesin ??? ondansetron Objective Vitals: Most Recent: Vitals: 05/29/21 1700 BP: 113/67 Pulse: 96 Resp: 19 Temp: 36.9 ??C (98.4 ??F) SpO2: 24hr Min/Max: Temp Min: 36.8 ??C (98.2 ??F) Max: 37 ??C (98.6 ??F) Pulse Min: 72 Max: 119 BP Min: 84/56 Max: 118/67 Resp Min: 14 Max: 27 SpO2 Min: 94 % Max: 99 % LDA: Introducer 05/04/21 Right Internal jugular (Active) Placement Date/Time: 05/04/21 (c) 1441 Hand Hygiene Performed: Yes Orientation: Right Location: Internal jugular Description (optional): multi-lumen access catheter (MAC) Number of days: 12 I/O: Date 05/28/211899 - 05/29/21 0659 05/29/21 0700 - 05/30/21 0659 Shift 5281-8451 24 Hour Total 6725-2516 0473-4987 24 Hour Total INTAKE P.O. 1440 840 840 I.V.(mL/kg) 1535(20.1) 1648.8(21.6) IV Piggyback 450 Shift Total(mL/kg) 1535(20.1) 3538.8(46.4) 840(11) 840(11) OUTPUT Urine(mL/kg/hr) 1300 3050 1525(1.7) 1525 Shift Total(mL/kg) 1300(17) 3050(40) 1525(20) 1525(20) NET 235 488.8 -983 -680 Weight (kg) 76.3 76.3 76.3 76.3 76.3 Physical Exam: General appearance: ill appearing male lying in bed HEENT: Normocephalic, without obvious abnormality, atraumatic, PERRLA Lungs: coarse to auscultation bilaterally Heart: regular rate and rhythm, S1, S2 normal, no murmur, click, rub or gallop Abdomen: soft, non-tender; bowel sounds normal; no masses, no organomegaly Extremities: extremities normal, warm and well-perfused Pulses: radial, DP, PT 2+ and symmetric Skin: Skin color, texture, turgor normal. No rashes or lesions Neurologic: A&Ox3, following commands Lab/Radiology/Diagnostic Review: Laboratory review: Lab results in the last 24 hours: Recent Results (from the past 24 hour(s)) Phosphorus Collection Time: 05/29/21 5:28 AM Result Value Ref Range Phosphorus, pl 2.7 2.3 - 4.5 mg/dL Magnesium Collection Time: 05/29/21 5:28 AM Result Value Ref Range Magnesium 1.8 1.4 - 2.5 mg/dL CBC without differential Collection Time: 05/29/21 5:28 AM Result Value Ref Range WBC 16.1 (H) 3.8 - 9.9 K/cumm Hgb 10.1 (L) 13.0 - 17.5 g/dL Hct 31.3 (L) 38.9 - 50.3 % Plt 508 (H) 150 - 400 K/cumm MPV 11.3 9.1 - 12.3 fL RBC 3.41 (L) 4.30 - 5.80 M/cumm MCV 91.8 81.3 - 96.4 fL MCH 29.6 27.1 - 33.3 pg MCHC 32.3 32.3 - 35.7 g/dL RDW CV 13.7 11.1 - 14.9 % RDW SD 45.6 35.7 - 48.1 fL NRBC abs 0.00 0.00 - 0.01 K/cumm Basic metabolic panel Collection Time: 05/29/21 5:28 AM Result Value Ref Range Sodium 130 (L) 135 - 145 mmol/L Potassium, pl 4.1 3.3 - 4.9 mmol/L Chloride 101 97 - 110 mmol/L CO2 18 (L) 22 - 32 mmol/L Anion gap 11 2 - 15 mmol/L BUN 18 8 - 25 mg/dL Creatinine 0.38 (L) 0.80 - 1.30 mg/dL Glucose 105 70 - 199 mg/dL Calcium 8.6 8.5 - 10.3 mg/dL eGFR Collection Time: 05/29/21 5:28 AM Result Value Ref Range eGFR 133 mL/min/1.73 m2 POCT glucose Collection Time: 05/29/21 8:01 AM Result Value Ref Range Glucose, POC 91 70 - 199 mg/dL POCT glucose Collection Time: 05/29/21 11:55 AM Result Value Ref Range Glucose, POC 274 (H) 70 - 199 mg/dL Beta-hydroxybutyrate Collection Time: 05/29/21 2:42 PM Result Value Ref Range Beta-Hydroxybutyrate <0.2 <=0.5 mmol/L POCT glucose Collection Time: 05/29/21 4:56 PM Result Value Ref Range Glucose, POC 234 (H) 70 - 199 mg/dL Vancomycin level trough Draw trough 30 minutes prior to 4th dose. Collection Time: 05/29/21 5:09 PM Result Value Ref Range Vancomycin trough 13.8 10.0 - 20.0 mcg/mL XR Chest 1 Vw Portable Result Date: 05/28/2021 Slight improved aeration especially in the left lung.. Electronically signed by: Deacon Cummings M.D. Plan: Neuro: #Acute pain - Tylenol PRN - Lidocaine patches #Insomnia - Seroquel CV: #Severe multivessel CAD s/p CABG #STEMI #HFrEF, chronic - S/p CABG by MD Granados - CCL (04/30) -> in-stent restenosis, unsuccessful angioplasty, IABP placed, IABP removed 05/06 - ASA/Atorvastatin/Plavix - Coreg and lisinopril - Cardiology following - CTS following - TTE (05/17) -> EF 35-40% Pulmonary: #Acute hypoxic respiratory failure 2/2 #COVID 19 pneumonia #HCAP, H. Flu, moraxilla, and MRSA - Optiflow 35L/40% - COVID 19 positive (05/19) - s/p Remdesivir and decadron - Aggressive pulmonary hygiene, IS, OOBTC in am - Maintain sats> 92% - Vanc/Cefe for 10 day course GI: Diet: Mechanical soft PUD PPx: Pantoprazole Bowel regimen: Docusate/Senna/Urvashi Endo: #Hyperglycemia, likely 2/2 stress response - Glycemic control - SSI Currently on farxiga (Consider d/c if procedure upcoming or if NPO for some time) - Frequent accuchecks - Endocrine managing Renal: - BUN/Cr 18/0.38 - FBG net negative - trend renal function, avoid nephrotoxins, renal dose medications - optimize electrolytes with caution to renal function -goal K ~4, Mg > 2.2, phos > 3, iCAL > 4.5 -provide supplement as needed -AM BMP and electrolytes check #Hematuria 2/2 #Bladder tumor - (05/14) Cystoscopy for clot evacuation and cessation of bleeding sites - Mild hematuria improving - Urology following - Flomax Heme: #ABLA 2/2 surgery H&H 10.1/31.3 plt 508 - No active signs of bleeding - Transfuse for hgb < 8 - CBC in am DVT PPX: SCD's/Lovenox ID: #COVID 19 pneumonia #HCAP, H. Flu, Moraxella, MRSA, Enterovirus and Rhinovirus - WBC: 16.1 - s/p Remdesivir and Dexamethasone - Vanc/Cefe for 10 day course (day 4) - ID Following - CBC in am - CXR in am for evaluation of lung escamilla - Trend WBC and fever curve ICU standards of care: Physical therapy/Activity: PT/OT Access: RUE PICC (05/18) Goals of care: Full code [facility] PM Assessment and plan has been reviewed with attending, Dr. Dalton Mei, [facility] [phone], [place] 1 Critical Care Medicine [facility] Cosigned by Austin Hoffman MD at 06/09/2021 1:01 PM STAFF FORESTER F FORESTER F FORESTER * Se Godoy [facility] - 05/29/2021 7:21 PM CST Pharmacokinetic Consult - Vancomycin Dosing Deepak Alvarado is a 60 y.o. male who has been consulted for vancomycin dosing for HAP. Relevant clinical data and objective history reviewed: Creatinine Date Value Ref Range Status 05/29/2021 0.38 (L) 0.80 - 1.30 mg/dL Final 05/28/2021 0.40 (L) 0.80 - 1.30 mg/dL Final 05/27/2021 0.42 (L) 0.80 - 1.30 mg/dL Final BUN Date Value Ref Range Status 05/29/2021 18 8 - 25 mg/dL Final 05/28/2021 19 8 - 25 mg/dL Final 05/27/2021 22 8 - 25 mg/dL Final Estimated Creatinine Clearance: 209.3 mL/min (A) (by C-G formula based on SCr of 0.38 mg/dL (L)). I/O last 3 completed shifts: In: 4378.8 [P.O.:2280; I.V.:1648.8; IV Piggyback:450] Out: 4575 [Urine:4575] Lab Results Component Value Date/Time WBC 16.1 (H) 05/29/2021 05:28 AM HGB 10.1 (L) 05/29/2021 05:28 AM HGB 7.8 (L) 05/04/2021 07:28 PM HCT 31.3 (L) 05/29/2021 05:28 AM MCV 91.8 05/29/2021 05:28 AM LABPLAT 508 (H) 05/29/2021 05:28 AM Temp Readings from Last 3 Encounters: 05/29/21 36.9 ??C (98.4 ??F) (Oral) Patient Weight 05/29/21 76.3 kg (168 lb 3.4 oz) Baseline culture/source/susceptibility: 05/26/21 - sputum cx - MRSA. Assessment/Plan The patient has been receiving vancomycin 1500 every 12 hours. Vancomycin trough level returned as 13.8 on 05/29/21 at 1709. Interval/Dose adjustment will be made. Will change dose to 1750 mg IV every 12 hours. Next vancomycin trough level ordered to be drawn 05/31/21 at 0530 Pharmacy will continue to follow the patient???s culture results and clinical progress daily. Day 4 of therapy Se Godoy RPh F FORESTER * Lc Simons MD - 05/29/2021 10:49 AM CST Hospitalist Progress Note Name: Deepak Alvarado Admission Date: 05/01/2021 Today's Date: 05/29/2021 Subjective: Pt seen and examined Clinical course: Overall pt condition has improved. Still on 4L per NC today 05/16: feels ok today, on 5L per NC 05/17: transferred to ICU for worsening respiratory distress requiring more O2 05/20: remains in the ICU, on Optiflow today 05/21: about the same today, Optiflow 05/22: still on Optiflow, back on Insulin gtt 05/23: no major changes , still on Optiflow 05/24: remains on Optiflow 05/25: about the same 05/26: optiflow, back on antibiotics 05/27: Patient remains on OptiFlow. No events overnight. Patient appears comfortable 05/28: Patient has no complaints other than just wanting to be out of here. Appears comfortable. 05/29: Patient remains on OptiFlow, still wanting to go home Objective: Vitals: 05/29/21 0906 05/29/21 0913 05/29/21 0930 05/29/21 1000 BP: (!) 84/56 100/62 BP Location: Patient Position: Pulse: 119 94 Resp: 24 22 Temp: TempSrc: SpO2: 99% 97% Weight: Height: Wt Readings from Last 3 Encounters: 05/29/21 76.3 kg (168 lb 3.4 oz) 08/27/13 114.3 kg (252 lb) 10/19/12 111.6 kg (246 lb) I/O last 3 completed shifts: In: 3538.8 [P.O.:1440; I.V.:1648.8; IV Piggyback:450] Out: 3800 [Urine:3800] No intake/output data recorded. Scheduled Meds Current Facility-Administered Medications Medication Dose Route Frequency Provider Last Rate Last Admin ??? acetaminophen (TYLENOL) tablet 650 mg 650 mg oral Q6H PRN Eleonora Duarte NP 650 mg at 05/21/21 1545 ? ? al & mag hydroxide muzmefihlqm-vcyilntefoqwoqt-jyuzvupqw-nystatin (MAGIC MOUTHWASH) suspension 1-1-1-1 20 mL swish & spit Q4H PRN Elena Kelly NP ??? albuterol 2.5 mg /3 mL (0.083 %) nebulizer solution 2.5 mg 2.5 mg nebulization Q4H PRN (RT) Ralf Tomlinson MD 2.5 mg at 05/17/21 0224 ??? albuterol HFA (PROVENTIL HFA,VENTOLIN HFA,PROAIR HFA) 90 mcg/actuation inhaler 8 puff 8 puff inhalation Q4H While awake (RT) Ralf Tomlinson MD 8 puff at 05/29/21 0907 ??? aspirin enteric coated tablet 81 mg 81 mg oral Daily Varsha Crowder NP 81 mg at ??? atorvastatin (LIPITOR) tablet 80 mg 80 mg oral Nightly Rhina Granados MD 80 mg at 05/28/212106 ??? carvediloL (COREG) tablet 3.125 mg 3.125 mg oral BID with meals (bkfst, dinner) Nalini Clayton MD 3.125 mg at 05/29/21821 ??? cefepime (MAXIPIME) 2,000 mg in sodium chloride 0.9% 100 mL IVPB 2,000 mg intravenous Q8H [facility] Angelo Vance MD ??? clopidogreL (PLAVIX) tablet 75 mg 75 mg oral Daily Alejandro Gonzalez NP 75 mg at ??? dapagliflozin (FARXIGA) tablet 10 mg 10 mg oral Daily Stephen Melgar MD 10 mg at 05/29/21821 ??? dextrose oral liquid liquid 15 g 15 g oral Q15 Min PRN Silviano Huddleston NP Or ??? dextrose (D10W) 10% bolus 250 mL 250 mL intravenous Q15 Min PRN Silviano Huddleston NP ??? dextrose oral liquid liquid 15 g 15 g oral Q15 Min PRN Anibal Lara MD ??? enoxaparin (LOVENOX) syringe 40 mg 40 mg subcutaneous Daily-2100 Rhina Granados MD 40 mg at107/29/202106 ??? glucagon injection 1 mg 1 mg intramuscular Q30 Min PRN Silviano Huddleston NP ??? guaiFENesin (ROBITUSSIN) 20 mg/mL oral liquid 200 mg 200 mg oral QID PRN Caleb Toth PA 200 mg at 05/25/21 2353 ??? insulin lispro (HumaLOG, ADMELOG) 100 unit/mL injection 0-10 Units 0-10 Units subcutaneous TID with meals Silviano Huddleston NP 4 Units at 05/28/21 1759 ??? insulin lispro (HumaLOG, ADMELOG) 100 unit/mL injection 0-5 Units 0-5 Units subcutaneous Nightly Silviano Huddleston NP 2 Units at 05/28/212109 ??? lidocaine (LIDODERM) 5 % patch 1 patch 1 patch transdermal Daily Rosy Muñoz NPMedication Removed at 05/27/212220 ??? lisinopriL (PRINIVIL,ZESTRIL) tablet 5 mg 5 mg oral Daily Nalini Clayton MD 5 mg at 05/29/21 0946 ??? midodrine (PROAMATINE) tablet 15 mg 15 mg oral TID Silviano Huddleston NP 15 mg at 05/29/21 0822 ??? ondansetron (ZOFRAN) injection 4 mg 4 mg intravenous Q6H PRN Rhina Granados MD ??? pantoprazole DR (PROTONIX) extended release tablet 40 mg 40 mg oral Daily Rhina Granados MD40 mg at 05/29/21 0817 ??? polyethylene glycol (MIRALAX) packet 17 g 17 g oral Q12H Elena Kelly NP 17 g at 05/29/21 0946 ??? QUEtiapine (SEROquel) tablet 50 mg 50 mg oral Nightly Silviano Huddleston NP 50 mg at 12/09/278934 ??? senna-docusate (PERICOLACE) 8.6-50 mg per tablet 2 tablet 2 tablet oral Q12H Elena Kelly NP 2 tablet at 05/29/21 0946 ??? sodium bicarbonate tablet 1,300 mg 1,300 mg oral BID Yves Weinberg MD 1,300 mg at 05/29/21 0822 ??? sodium chloride 0.9% flush 0.5-20 mL 0.5-20 mL intra-catheter Q8H Rhina Flores MD 10 mL at 05/29/21 0513 ??? tamsulosin (FLOMAX) extended release capsule 0.4 mg 0.4 mg oral Daily with dinner Elena Kelly NP 0.4 mg at 05/28/21 1751 ??? vancomycin 1500 mg/250 mL in sodium chloride 0.9% (premix) 1,500 mg 1,500 mg intravenous Q12H Rosy Muñoz NP 1,500 mg at 05/29/21 0516 ??? acetaminophen ? ? al & mag hydroxide lhyculyoaoe-gxcnybtxlgebwxi-euyhbdauk-nystatin ??? albuterol ??? dextrose OR dextrose ??? dextrose OR [DISCONTINUED] dextrose ??? glucagon ??? guaiFENesin ??? ondansetron Physical Exam: General: alert, cooperative, no distress, appears stated age HEENT: Head:normacephalic, Eyes: Perrla, EOMI bilaterally, nasal and oral mucosal pink and moist Heart: normal rate, regular rhythm, normal S1, S2, no murmurs, rubs, clicks or gallops Lungs: clear to auscultation, no wheezes or rales and unlabored breathing Abdomen: soft, nontender, nondistended, no masses or organomegaly Extremities: peripheral pulses normal, no pedal edema, no clubbing or cyanosis Neuro: alert, oriented x 3, no defects noted in general exam. Lab Data Laboratory review: Chemistry CMP: Lab Results Component Value Date BUNSER 18 05/29/2021 CALCIUM 8.6 05/29/2021 CO2 18 (L) 05/29/2021 CHLORIDE 101 05/29/2021 CREATININE 0.38 (L) 05/29/2021 GLUCOSE 91 05/29/2021 GLUCOSE 105 05/29/2021 POTASSIUM 4.1 05/29/2021 SODIUM 130 (L) 05/29/2021 , CBC: Lab Results Component Value Date WBC 16.1 (H) 05/29/2021 RBC 3.41 (L) 05/29/2021 HGB 10.1 (L) 05/29/2021 HCT 31.3 (L) 05/29/2021 MCV 91.8 05/29/2021 MCH 29.6 05/29/2021 MCHC 32.3 05/29/2021 RDWCV 13.7 05/29/2021 RDWSD 45.6 05/29/2021 MPV 11.3 05/29/2021 NRBCABS 0.00 05/29/2021 , Coags: No results found for: PT, PTT, APTT, FFN, FIBRINOGEN, INR, ACTIVATEDCL, Lipids: No results found for: CHOL, CHLPL, HDL, LDLCALC, TRIG, CHOLHDL, Cardiac Enzymes: No results found for: CKTOTAL, CKMB, CKMBINDEX, TROPONINT and POC Glucose: Lab Results Component Value Date GLUCOSE 91 05/29/2021 GLUCOSE 105 05/29/2021 Home Medications have been reviewed and updated on pt's list Assessment and Plan Acute resp failure - self ext 05/05/21 -Lung infiltrates - pulm vascular congestion/CHF, and suspected pneumonia - completed Zosyn -COVID19 (+) 05/19 -started on Decadron and Remdesivir 05/19 -PRN IV Lasix -pt cont on Optiflow - wean as tolerated -pulmonology follows -per cards added Farxiga, Aldactone, and Corlanor 05/23 -continue Cefepime and Vancomycin Near syncope/Syncope episode, probable vaso vagal, stable at this time-monitor ?? Acute anterior STEMI with CAD , s/p PCI to LAD -s/p CABG x 4 05/04 given re thrombosis of existing stents -s/p IABP, removed 05/06 - ASA, ??statins, off Plavix due to hematuria, low-dose BB, monitor blood pressure ?? Post CABG cardiogenic shock, hypotensive again - s/p??Dobutamine gtt and Levophed -now on Midodrine ?? Ventricular fibrillation - briefly on 05/03 - treated with Amiodarone and Dobutamine gtt, off them now ?? Gross Hematuria ?- in a pt with hx of ??cystoscopy, -clot evacuation and transurethral resection of bladder tumor at [facility] -s/p 20??German three way catheter -holding Plavix -cysto 05/14 with clot evacuation and fulguration ? Type 2 diabetes.??- SSI proocol ?? Acute blood loss anemia ; -s/p PRBC transfusions in ICU - monitor HH ?? Mild hyponatremia, monitor ?? Hx of ??Tobacco use. ?? DVT prophylaxis :Lovenox Pt will need continued inpatient management for the above medical issues. Code status: full Lc Simons MD [facility] Hospitalist 05/29/2021 10:49 AM F FORESTER * Angelo Vance MD - 05/29/2021 9:45 AM CST Infectious Disease Deepak Alvarado Admit Date: 05/01/2021 LOS: 28 Days Clinical Cours Patient about the same New Symptoms Positive SOB, no Cp, no nvd, no rashes Data Vitals: 05/29/21 0630 05/29/21 0700 05/29/21 0906 05/29/21 0913 BP: 101/73 106/64 BP Location: Patient Position: Pulse: 83 96 Resp: 23 25 Temp: TempSrc: SpO2: 99% 97% Weight: Height: Temp (24hrs), Av.6 ??C (97.9 ??F), Min:36.1 ??C (97 ??F), Max:37 ??C (98.6 ??F) Recent Labs Lab Units 05/29/21 0528 05/28/21 0247 05/27/21 0640 WBC K/cumm 16.1* 12.1* 13.5* HEMOGLOBIN g/dL 10.1* 11.2* 9.9* HEMATOCRIT % 31.3* 34.3* 29.8* PLATELETS K/cumm 508* 468* 519* Recent Labs Lab Units 05/29/21 0528 05/28/21 0247 05/28/21 0247 05/27/21 0640 05/27/21 0640 BUN SERUM mg/dL 18 -- 19 -- 22 CREATININE mg/dL 0.38* < > 0.40* < > 0.42* < > = values in this interval not displayed. Scheduled Meds:albuterol HFA, 8 puff, inhalation, Q4H While awake (RT) aspirin, 81 mg, oral, Daily atorvastatin, 80 mg, oral, Nightly carvediloL, 3.125 mg, oral, BID with meals (bkfst, dinner) cefepime, 2,000 mg, intravenous, Q8H LEAH clopidogreL, 75 mg, oral, Daily dapagliflozin, 10 mg, oral, Daily enoxaparin, 40 mg, subcutaneous, Daily-2100 insulin lispro, 0-10 Units, subcutaneous, TID with meals insulin lispro, 0-5 Units, subcutaneous, Nightly lidocaine, 1 patch, transdermal, Daily lisinopriL, 5 mg, oral, Daily magnesium sulfate, 2 g, intravenous, Once midodrine, 15 mg, oral, TID pantoprazole DR, 40 mg, oral, Daily polyethylene glycol, 17 g, oral, Q12H QUEtiapine, 50 mg, oral, Nightly senna-docusate, 2 tablet, oral, Q12H sodium bicarbonate, 1,300 mg, oral, BID sodium chloride 0.9%, 0.5-20 mL, intra-catheter, Q8H LEAH tamsulosin, 0.4 mg, oral, Daily with dinner vancomycin, 1,500 mg, intravenous, Q12H Continuous Infusions: PRN Meds:.??? acetaminophen ? ? al & mag hydroxide dslaxfmxqxy-zrobfoysbjcudwf-fvpxvnujr-nystatin ??? albuterol ??? dextrose OR dextrose ??? dextrose OR [DISCONTINUED] dextrose ??? glucagon ??? guaiFENesin ??? ondansetron Exam General appearance: alert, cooperative, no distress HEENT: (-)icterus, Oropharnyx is normal, NCAT Neck: No palpable LN Lungs: Course breath sounds and symmetric; minimal to moderate respiratory effort Heart: regular rhythm, normal S1 and S2, no m/r/g Abdomen: soft without mass, non-tender, +bowel sounds, no HSM Skin: (-)new rashes, no ulcerations MSK: no gross deformities, FROM Vascular: no Edema, pulses present bilaterally Neuro: No focal deficits Psych: Appropriate mood and affect ?? Cultures 05/02 COVID 19- 05/19 COVID 19 positive 05/26 blood cultures negative ?? 05/05 tracheal aspirate culture with yeast 05/26 pneumonia sputum culture PCR with Moraxella/Haemophilus/MRSA/rhino virus/enterovirus ?? Assessment: 1. Acute respiratory failure 2. COVID-19 infection 3. Status post CABG 4. Hematuria 5. Pneumonia 6. Rhino virus ?? Plan: 1. Continue treatment for COVID 2. Continue supportive care 3. Continue cefepime and vanc to complete 10 day course 4. Rhino virus may have been present on admission 5. Continue supportive care Angelo Vance MD 05/29/2021 F FORESTER * Chiara Fonseca OT - 05/29/2021 9:11 AM CST Occupational Therapy NOTE / SESSION TYPE: Weekly Progress / Interim Patient Name: Deepak Alvarado Date of : 1960 Age / Sex: 60 y.o. / male Room: [place] [address] Admit Date: 05/01/2021 Date of Service: 05/29/21 Time In: 09:11 Time Out: 09:37 Primary Diagnosis: ST elevation myocardial infarction (STEMI) ([facility]) HPI:??Deepak Alvarado??is a 60 y.o.??male??who presents with ??retrosternal chest pain accompanied bysweating and shortness of breath. Patient underwent bladder surgery (cystoscopy, clot evacuation, and transurethral resection of bladder tumor) ??at [facility] 04/30/2021 and was discharged 05/01/2021. Patient transferred to for emergent cardiac catheterization. Patient admitted with acute anterior wall MT, s/p cardiac cath with PTCA of the LAD and diagonal, intra-aortic balloonpump placement 05/01, CAD, s/p CABG x4 on 05/04/2021 - Dr. Granados. Patient self-extubated on 05/05/2021, post-op tachypnea, acute respiratory failure, cardiogenic shock, cardiomyopathy, EF 40%, s/p IABP removal 05/06/2021 ?? INTERVAL HOSPITAL COURSE 05/07/21 - 05/18/21: Patient transferred out of ICU on 05/08/21. ??Pacemaker wires removed on 05/13/21. Patient noted to have hematuria, s/p cystoscopy with clot evacuation and fulguration on 05/14/21, osorio catheter dislodged on 05/15/21. ??Patient developed acute respiratory failure with increasing O2 requirements, transferred to ICU on 05/17/21, found to have pulmonaryedema.? 05/26 ADDITIONAL MEDICAL INFO SINCE RE-EVAL ON 05/19/21: 05/20: remains in the ICU, on Optiflow today 05/21: about the same today, Optiflow 05/22: still on Optiflow, back on Insulin gtt 05/23: no major changes , still on Optiflow 05/24: remains on Optiflow 05/25: about the same 05/26 pneumonia PCR ++++, start Vancomycin and Cefepime 05/27 Plavix resumed, overnight mild hematuria, Optiflow 05/28: Plavix, Optiflow, hypoxia x 1 getting up to chair ?? CT chest 05/19/21: b gg inf, severe emphysema ?? CT chest 05/25/21: b inf, emphysema, no PE Notable History:?CAD, s/p multiple stents, HTN, hyperlipidemia, DM, PVD, obesity, tobacco use Past Medical History: Diagnosis Date ??? Chronic obstructive pulmonary disease (CMS/HCC) (HCC) COPD ??? Coronary artery disease ??? Diabetes mellitus (HCC) ??? H/O heart artery stent 2006 ??? Hypertension Hypertension ??? ST elevation (STEMI) myocardial infarction (HCC) 05/01/2021 History reviewed. No pertinent surgical history. Precautions (Including Weight-Bearing): Fall risk, Bed / chair alarm, Sternal precautions, Cardiac precautions, Contact isolation: COVID, Airborne precautions: COVID and Droplet precautions (RHINO/ENTEROVIRUS) Caregiver Present for Session (Yes or No): No SUBJECTIVE: Patient Comment: I'M WAITING FOR THE TRAINING AND DEVELOPMENT SPECIALIST TO COME Pain Assessment: Pre-therapy pain level: 0 / 10 Pain location: No pain - Location N/A Pain intervention(s): No pain - Intervention N/A Post-therapy pain level: 0 / 10 Pain scale used: 0-10 SCALE Prior Living Environment and Level of Function: PLEASE REFER TO OT NOTE ON 05/19 FOR PLOF INFO OBJECTIVE: Appearance: Presentation upon OT arrival: Patient Supine with head of bed elevated Presentation upon OT departure: Patient Supine with head of bed elevated Bed / chair alarm in place and activated upon OT departure: N/A Call light within arms reach of patient at end of session: Yes Completed patient handoff and notified MANAGER RENTAL / RN, name: MARCEL, of patient's location and functional status upon completion of session Vital Signs: Heart rate at rest: 120 bpm SPO2 at rest: 105 % Heart rate with activity: 95 bpm SPO2 with activity: 92 % Oxygen LPM: OPTIFLOW 40%/30L Blood pressure at rest: 105/62, 74 MAP SUPINE WITH HEAD OF BED ELEVATED Cognitive / Perceptual Assessment: WFL; ALERT UE ROM / Strength / Coordination: (A)ROM - Right: WFL THROUGHOUT EXCEPT SHOULDER FLEXION/ABDUCTION UP TO 90 DEGREES TO MAINTAIN STERNAL PRECAUTIONS Strength - Right: 4/5 THROUGHOUT EXCEPT 3-/5 SHOULDER FLEXION/ABDUCTION (A)ROM - Left: WFL THROUGHOUT EXCEPT SHOULDER FLEXION/ABDUCTION UP TO 90 DEGREES TO MAINTAIN STERNAL PRECAUTIONS Strength - Left: 4/5 THROUGHOUT EXCEPT 3-/5 SHOULDER FLEXION/ABDUCTION Hand Dominance: Right Hogshead Builder Strength (Right) GOOD Hogshead Builder Strength (Left): GOOD Right Serial Opposition: Decreased rate Left Serial Opposition: Decreased rate Balance: Static sitting balance: GOOD SUPPORTED EOB Dynamic sitting balance: GOOD- SUPPORTED EOB Static standing balance: GOOD-/FAIR+ Mobility / Transfers: Bed mobility (Components & Assistance): SUPINE TO SEATED EOB- MINIMAL ASSIST SEATED EOB TO RETURN TO SUPINE- SUPERVISION ASSIST Transfer(s): INITIAL SIT TO STAND FROM EOB- MINIMAL ASSIST SECOND SIT TO STAND FROM EOB- CONTACT GUARD ASSIST Activities of Daily Living / Living Skills: UE dressing: Patient completed upper body dressing of Hospital gown while Sitting on EOB with overall Minimal assistance. Patient required assistance for MANAGE LINES/LEADS, TIE AROUND BACK. Lower Body Dressing: PATIENT DECLINED Footwear: Patient completed footwear of Footie(s) while Sitting on EOB with overall Supervision assistance. Patient required assistance for increased time to complete Other: GROOMING TASKS LOCATION OF GROOMING TASKS: Sitting on EOB TASKS COMPLETED: WASHING FACE OVERALL ASSIST LEVEL: SUPERVISION ASSISTANCE / VERBAL CUES ADDITIONAL DOCUMENTATION: N/A ASSESSMENT: Rehab Potential (Prognosis): good Problem List: Patient has impairments including: Decreased UE ROM , Decreased UE strength, Decreased balance, Decreased mobility, Decreased endurance and Decreased ADL independence. Barriers to Discharge: Decreased endurance, Upper extremity weakness, Lower extremity weakness, Medical complications, Wound Care and DECREASED MOBILITY PLAN: OT Discharge Recommendations this date: Location: Inpatient rehabilitation pending qualify criteria Supervision: 24 hour Follow-up therapy recommendations: Skilled OT in Inpatient Rehabilitation setting Frequency of therapy: 3-5 times / week Intervention / Education needs: ADL training, Compensatory ADL strategies, Durable medical equipment education, Balance activities, Functional transfer training, Safety education, Precautions education, Pursed lip breathing / Relaxation techniques, UE home exercise program education and Energy conse rvation techniques Education provided: Patient has been educated on Role of OT, OT plan of care, ADL training, Bed mobility training, Functional transfer training, Safety education and STERNAL/CARDIAC precautions. Individual(s) verbalized understanding and needs ongoing reinforcement. UPDATED Short Term Goals / Care Plan: Multi-Disciplinary Problems (from Occupational Therapy) Active Problems Problem[place] [facility] [place]: 05/07/21 Goal Start Date Expected End Date End Date [facility] 3 05/07/21 06/05/21 -- Goal Details: Patient will complete LE dressing with MOD I using compensatory strategies one time (GOAL CONTINUED AT TIME OF WEEKLY INTERIM ON ) Goal Start Date Expected End Date End Date [facility] 5 05/07/21 06/05/21 -- Goal Details: Patient will complete chest mobilization exercises with MINIMAL verbal cues one time to increase tolerance for ADLs GOAL UPDATED AT TIME OF WEEKLY INTERIM ON 05/29- ) Goal Start Date Expected End Date End Date [facility] 7 05/15/21 06/05/21 -- Goal Details: Patient will complete UE dress with set up x1 (GOAL CONTINUED AT TIME OF WEEKLY INTERIM ON ) Goal Start Date Expected End Date End Date [facility] 8 05/15/21 06/05/21 -- Goal Details: Patient will complete transfers to bed/toilet/chair with SBA one time using least restrictive device (GOAL CONTINUED AT TIME OF WEEKLY INTERIM ON 05/29- ) Goal Start Date Expected End Date End Date OT [facility] [place] [facility] [place] 05/19/21 06/05/21 -- Goal Details: Patient will complete bathing with SBA one time (GOAL CONTINUED AT TIME OF WEEKLY INTERIM ON 05/29- ) Reviewed By Deepak Bills RN 05/28/21 0733 Deepak Bills RN 05/28/21 0725 Devonte Ward RN 05/17/21 0047 Devonte Ward RN 05/11/21 0408 Devonte Ward RN 05/10/21 0257 If this is the last note, consider this the discharge summary Chiara Fonseca OT 05/29/21 9:42 AM F FORESTER * Padilla Baker RPh - 05/29/2021 8:35 AM CST Pharmacy Renal Dose Adjustment Deepak Alvarado meets P&T-approved criteria for renal dose adjustment of medication therapy for CrCl > 60. The initial order was timed to end in 3 days, and this was kept when the order was modified. CEFEPIME Current regimen: 2000mg q 12 h New regimen: 2000mg q 8 h Lab Results Component Value Date/Time CREATININE 0.38 (L) 05/29/2021 05:28 AM BUNSER 18 05/29/2021 05:28 AM Estimated Creatinine Clearance: 209.3 mL/min (A) (by C-G formula based on SCr of 0.38 mg/dL (L)). Padilla Baker, Pharm.D F FORESTER * Nalini Clayton MD - 05/29/2021 8:23 AM CST [facility] - Cardiology [facility] Progress Note Admit Date: 05/01/2021 5:20 PM @HDAYS@ PCP: Unknown, Notinfile Patient seen and examined Chart , telemtry reviewed Symptoms Patient denies chest pain, dyspnea, palpitations, sweating or syncope.On optiflo Data Vitals: 05/29/21 0600 05/29/21 0610 05/29/21 0630 05/29/21 0700 BP: 101/62 101/73 106/64 BP Location: Patient Position: Pulse: 86 83 96 Resp: 23 25 Temp: TempSrc: SpO2: 98% 99% Weight: Height: Intake/Output Summary (Last 24 hours) at 05/29/2021 0823 Last data filed at 05/29/2021 0605 Gross per 24 hour Intake 3538.83 ml Output 2700 ml Net 838.83 ml Lab Results Component Value Date WBC 16.1 (H) 05/29/2021 WBC 12.1 (H) 05/28/2021 WBC 13.5 (H) 05/27/2021 HGB 10.1 (L) 05/29/2021 HGB 11.2 (L) 05/28/2021 HGB 9.9 (L) 05/27/2021 HCT 31.3 (L) 05/29/2021 HCT 34.3 (L) 05/28/2021 HCT 29.8 (L) 05/27/2021 Lab Results Component Value Date SODIUM 130 (L) 05/29/2021 SODIUM 135 05/28/2021 SODIUM 130 (L) 05/27/2021 POTASSIUM 4.1 05/29/2021 POTASSIUM 3.7 05/28/2021 POTASSIUM 4.6 05/27/2021 CHLORIDE 101 05/29/2021 CHLORIDE 107 05/28/2021 CHLORIDE 100 05/27/2021 CO2 18 (L) 05/29/2021 CO2 17 (L) 05/28/2021 CO2 20 (L) 05/27/2021 CREATININE 0.38 (L) 05/29/2021 CREATININE 0.40 (L) 05/28/2021 CREATININE 0.42 (L) 05/27/2021 GLUCOSE 91 05/29/2021 GLUCOSE 105 05/29/2021 GLUCOSE 205 (H) 05/28/2021 GLUCOSE 244 (H) 05/28/2021 GLUCOSE 68 (L) 05/28/2021 GLUCOSE 183 05/27/2021 CALCIUM 8.6 05/29/2021 CALCIUM 7.7 (L) 05/28/2021 CALCIUM 8.9 05/27/2021 No results found for: PTT No results found for: PT No results found for: INR No results found for: BNP No components found for: TROPONIN No results found for: CHOL, TRIG, HDL, LDLCALC No results found for: ALBUMIN, ALKPHOS, ALT, AST No components found for: MAGMGDL No results found for: TSH No results found for: T3FREE No results found for: [id number] Pain Assessment: No/denies pain Meds MEDICATIONS FOR CURRENT ENCOUNTER: SCHEDULED MEDICATIONS: Scheduled Medications Medication Dose Route Frequency ??? albuterol HFA (PROVENTIL HFA,VENTOLIN HFA,PROAIR HFA) 90 mcg/actuation inhaler 8 puff 8 puff inhalation Q4H While awake (RT) ??? aspirin enteric coated tablet 81 mg 81 mg oral Daily ??? atorvastatin (LIPITOR) tablet 80 mg 80 mg oral Nightly ??? carvediloL (COREG) tablet 3.125 mg 3.125 mg oral BID with meals (bkfst, dinner) ??? cefepime (MAXIPIME) 2,000 mg in sodium chloride 0.9% 100 mL IVPB 2,000 mg intravenous Q12H LEAH ??? clopidogreL (PLAVIX) tablet 75 mg 75 mg oral Daily ??? dapagliflozin (FARXIGA) tablet 10 mg 10 mg oral Daily ??? dexAMETHasone (DECADRON) 4 mg/mL injection 6 mg 6 mg intravenous Daily ??? docusate sodium (COLACE) capsule 100 mg 100 mg oral BID ??? enoxaparin (LOVENOX) syringe 40 mg 40 mg subcutaneous Daily-2100 ??? insulin lispro (HumaLOG, ADMELOG) 100 unit/mL injection 0-10 Units 0-10 Units subcutaneous TID with meals ??? insulin lispro (HumaLOG, ADMELOG) 100 unit/mL injection 0-5 Units 0-5 Units subcutaneous Nightly ??? lidocaine (LIDODERM) 5 % patch 1 patch 1 patch transdermal Daily ??? midodrine (PROAMATINE) tablet 15 mg 15 mg oral TID ??? pantoprazole DR (PROTONIX) extended release tablet 40 mg 40 mg oral Daily ??? QUEtiapine (SEROquel) tablet 50 mg 50 mg oral Nightly ??? sodium bicarbonate tablet 1,300 mg 1,300 mg oral BID ??? sodium chloride 0.9% flush 0.5-20 mL 0.5-20 mL intra-catheter Q8H LEAH ??? tamsulosin (FLOMAX) extended release capsule 0.4 mg 0.4 mg oral Daily with dinner ??? vancomycin 1500 mg/250 mL in sodium chloride 0.9% (premix) 1,500 mg 1,500 mg intravenous Q12H ?? CONTINUOUS MEDICATIONS: Continuous Medications Medication Dose Last Rate ? PRN MEDICATIONS: PRN Medications Medication Dose Route Frequency Last Admin ??? acetaminophen (TYLENOL) tablet 650 mg 650 mg oral Q6H PRN 650 mg at 05/21/21 1545 ? ? al & mag hydroxide pdpdonxnnno-nfejmbkqnfdrwwa-ukamenwht-nystatin (MAGIC MOUTHWASH) suspension 1-1-1-1 20 mL swish & spit Q4H PRN ??? albuterol 2.5 mg /3 mL (0.083 %) nebulizer solution 2.5 mg 2.5 mg nebulization Q4H PRN (RT) 2.5mg at 05/17/21 0224 ??? dextrose oral liquid liquid 15 g 15 g oral Q15 Min PRN Or ??? dextrose (D10W) 10% bolus 250 mL 250 mL intravenous Q15 Min PRN ??? dextrose oral liquid liquid 15 g 15 g oral Q15 Min PRN ??? glucagon injection 1 mg 1 mg intramuscular Q30 Min PRN ??? guaiFENesin (ROBITUSSIN) 20 mg/mL oral liquid 200 mg 200 mg oral QID PRN 200 mg at 05/25/21 1643 ??? ondansetron (ZOFRAN) injection 4 mg 4 mg intravenous Q6H PRN ??? polyethylene glycol (MIRALAX) packet 17 g 17 g oral Daily PRN 17 g at 05/27/21 0902 Allergies Allergen Reactions ??? Metoclopramide Review of Systems: All systems were reviewed. Pertinent positives are mentioned above. Exam Not done Assessment /Plan CAD + STEMI s/p CABG - Cardiac cath 05/01 with 40% distal LM, 100% prox LAD, 90% prox Cx, 50% prox and distal RCA - Echo 05/02 EF??37%, CABGx4 05/04/2021 - SR 80s on tele -Pro 2233 -CTS following ?? COVID 19 - dx 05/19/2021 - on Remdesivir and dexamethasone -on optiflow -pulmonology following ?? Acute Respiratory failure - Lung infiltrates per CXR on 05/19, completed Abx, COVID + - transferred to ICU 05/17 for increasing oxygen requirments - on Optiflow??with decreased O2 requirements - Pulm following - CT PE negative? Hematuria - cysto 05/14 - resolved ?? Urinary retention -urology following ?? S/p Cardiogenic shock + Hypotension - off pressors -midodrine TID -BP improving ?? Hypokalemia - on K supplemented -??improved ??Started low dose coreg, lisinopril for LV dysfunction ??Tachycardia present Hx V. Fib - brief on 05/03 - treated w/ Amiodarone and Dobutamine gtt, resolved -4 beat episode of NSVT 05/23 ?? HLD - on Statin ? Nalini Clayton MD F FORESTER * Alejandro Pratt MD - 05/29/2021 7:13 AM CST Pulmonary Daily Progress Chief complaint/reason for consult: Respiratory failure. Interval History: On optiflow 60 % 50 L SaO2 98% Denies dyspnea; cough improved Afebrile alert No sputum production No NVD COVID positive 05/19/21 Presenting History: 60 yo man w COPD, DM, CAD/stents admitted 05/01/21 with chest pain. Had recent hematuria as well. Workup revealed an acute MT. Cath showed multi-vessel CAD. Had balloon pump placed. CABG x 4 done on 05/04/21. He was continued on mechanical ventilation and self extubated this AM (05/05/21). He is on multiple pressors. Sedated with precedex. Some tachypnea. A balloon pump is in place. Current tobacco use. COPD listed as prior diagnosis. No inhalers on home med list. Allergies: Allergies Allergen Reactions ??? Metoclopramide Medications: Scheduled Meds:albuterol HFA, 8 puff, inhalation, Q4H While awake (RT) aspirin, 81 mg, oral, Daily atorvastatin, 80 mg, oral, Nightly carvediloL, 3.125 mg, oral, BID with meals (bkfst, dinner) cefepime, 2,000 mg, intravenous, Q12H LEAH clopidogreL, 75 mg, oral, Daily dapagliflozin, 10 mg, oral, Daily dexAMETHasone, 6 mg, intravenous, Daily docusate sodium, 100 mg, oral, BID enoxaparin, 40 mg, subcutaneous, Daily-2100 insulin lispro, 0-10 Units, subcutaneous, TID with meals insulin lispro, 0-5 Units, subcutaneous, Nightly lidocaine, 1 patch, transdermal, Daily midodrine, 15 mg, oral, TID pantoprazole DR, 40 mg, oral, Daily QUEtiapine, 50 mg, oral, Nightly sodium bicarbonate, 1,300 mg, oral, BID sodium chloride 0.9%, 0.5-20 mL, intra-catheter, Q8H LEAH tamsulosin, 0.4 mg, oral, Daily with dinner vancomycin, 1,500 mg, intravenous, Q12H Continuous Infusions: PRN Meds:.??? acetaminophen ? ? al & mag hydroxide wldtlnkoxyg-bnhwqjqthdkduxs-ttuujrjel-nystatin ??? albuterol ??? dextrose OR dextrose ??? dextrose OR [DISCONTINUED] dextrose ??? glucagon ??? guaiFENesin ??? ondansetron ??? polyethylene glycol ROS Above review of system reviewed on 05/29/2021 Vitals: Vitals: 05/29/21 0530 05/29/21 0600 05/29/21 0610 05/29/21 0630 BP: 106/66 101/62 101/73 BP Location: Patient Position: Pulse: 86 86 83 Resp: Temp: TempSrc: SpO2: 98% 99% Weight: Height: Temp (24hrs), Av.6 ??C (97.8 ??F), Min:36.1 ??C (97 ??F), Max:37 ??C (98.6 ??F) FiO2 (%): [60 %] 60 % Intake/Output Summary (Last 24 hours) at 05/29/2021 0713 Last data filed at 05/29/2021 0605 Gross per 24 hour Intake 3538.83 ml Output 3050 ml Net 488.83 ml Physical Exam Constitutional: General: He is not in acute distress. Appearance: He is well-developed. HENT: Head: Normocephalic and atraumatic. Eyes: General: No scleral icterus. Conjunctiva/sclera: Conjunctivae normal. Neck: Thyroid: No thyromegaly. Cardiovascular: Rate and Rhythm: Normal rate and regular rhythm. Heart sounds: No murmur heard. Pulmonary: Effort: Pulmonary effort is normal. No respiratory distress. Breath sounds: Normal breath sounds. No wheezing, rhonchi or rales. Chest: Comments: Sternotomy incision Abdominal: General: Bowel sounds are normal. Palpations: Abdomen is soft. Skin: General: Skin is warm and dry. Neurological: Mental Status: He is alert. Lab/Radiology/Diagnostic Review: Labs: Recent Labs Lab Units 05/29/21 0528 05/28/21 0247 05/27/21 0640 WBC K/cumm 16.1* 12.1* 13.5* HEMOGLOBIN g/dL 10.1* 11.2* 9.9* HEMATOCRIT % 31.3* 34.3* 29.8* PLATELETS K/cumm 508* 468* 519* Recent Labs Lab Units 05/29/21 0528 05/28/21 1955 05/28/21 1747 05/28/21 0440 05/28/21 0247 05/27/21 0647 05/27/21 0640 SODIUM mmol/L 130* -- -- -- 135 -- 130* POTASSIUM PLASMA mmol/L 4.1 -- -- -- 3.7 -- 4.6 CHLORIDE mmol/L 101 -- -- -- 107 -- 100 CO2 mmol/L 18* -- -- -- 17* -- 20* ANIONGAP mmol/L 11 -- -- -- 11 -- 10 GLUCOSE mg/dL 105 -- -- -- 68* < > 183 POC GLUCOSE MONITOR mg/dL -- 205* 244* < > -- < > -- BUN SERUM mg/dL 18 -- -- -- 19 -- 22 CREATININE mg/dL 0.38* -- -- -- 0.40* -- 0.42* CALCIUM mg/dL 8.6 -- -- -- 7.7* -- 8.9 < > = values in this interval not displayed. Recent Labs Lab Units 05/25/21 0951 PH ART 7.47* PCO2 ART mmHg 32* PO2 ART mmHg 72* HCO3 ART (CALC) mmol/L 24 BASE EXC ART mmol/L 0 O2 SAT ART (JOELLE) % 95 Respiratory pathogen pcr 05/26: + rhinovirus Legionella Ag: negative Pneumococcal Ag: negative Imaging: CT chest 05/19/21: b gg inf, severe emphysema CT chest 05/25/21: b inf, emphysema, no PE Other diagnostic tests: I have personally reviewed above laboratory findings, chest imaging, and diagnostic tests 05/29/2021 Assessment and Plan: Acute respiratory failure Acute MT w CAD s/p CABG x 4 on 05/04/21, past hx multiple stents Cardiogenic shock, resolved Cardiomyopathy EF 40% V fib COPD: severe emphysematous changes on CT Anemia Hematuria s/p cystoscopy/fulguration COVID 19, diagnosed 05/19/21, resp status began worsening 05/15/21 Possible bacterial pneumonia Rhinovirus ?? Recs: Oxygen support, adjust as needed Dexamethasone started 05/19 Baricitinib: stopped 05/26 Remdesivir: completed On cefepime and vancomycin as per ID Incentive spirometry Scheduled albuterol Increase activity as tolerated Chart reviewed D/w RN F FORESTER * Elena Kelly NP - 05/29/2021 7:00 AM CST Images from the original note were not included. Critical Care Medicine Daily Progress Team: Community AM Subjective Patient is a 60 y.o. y/o male admitted on 05/01/2021 5:20 PM with the following indication(s) for ICU care hypoxemic respiratory failure, pulmonary edema, hypokalemia, shock Interval History: - Opiflow -> will attempt to wean to 15 L/NRB after getting in chair - Dexamethasone to end today - Aggressive pulmonary hygiene - Increased BR - BHO for Farxiga administration per protocol -> WNL - Mag repletion - Continue Vanc/Cefe for 10 day course per ID HPI (05/17) 60M smoker hx copd, obesity, pvd, htn, hld, dm2 & CAD s/p multiple LAD stents who p/w anterior STEMI after bladder procedure on 04/29. [facility] where they found in-stent thrombosis and an angioplasty was performed but stent could not be placed. A balloon pump was placed and the patient was transferred to the CVU. CT-surgery was consulted for CABG. The patie nt underwent a 4 vessel cabg on 05/04 w/ Dr. Granados (MAE->LAD, Saph vein->diag & obtuse, Saph->PDA). He developed rebleeding from his bladder tumor and this was adressed by urology. Heself extubated the next day after his CABG. His osorio was removed yesterday and he is currently post op day 11 from the CABG. He has been getting diuresed on the floor but has unfortunately had increasing oxygen requirement for the last 24 hours despite diuresis. He is currently on a non-rebreatherand being transferred to the ICU. Hospital Course 04/29 Cystoscopy at [facility] 04/30 STEMI, [facility] -> instent thrombosis, angioplasty, IABP, transfer to [facility] 05/04/21: Increased blood clot from osorio and obstruction with pain. 05/05/21: Brief asystole o/n w turning. Stable after. Self extubated in AM. 05/06/21: NAEON. Maintained on CPAP and optiflow. 05/07/21: NAEON. Up in chair at time of exam. TTF 05/10 near syncopal episode 05/14 cystoscopy with clot removal and fulguration of bleeding 05/17 readmit to ICU with pulmonary edema, lasix drip 05/18 Nasal cannula, on/off pressors, Negative VQ, ACTH Stim unremarkable 05/19 COVID positive, 15 L/NC, Remdesivir, dexamethasone 05/21 coude catheter placed, remains on optiflow, updated 05/22 increase seroquel, on optiflow 40L 75% 05/23 HF meds started, Lasix 40mg?? 05/24 FiO2 at 60% 05/25 PE protocol 05/26 pneumonia PCR ++++, start Vancomycin and Cefepime 05/27 Plavix resumed, overnight mild hematuria, Optiflow 05/28: Plavix, Optiflow, hypoxia x 1 getting up to chair 05/29 Optiflow Scheduled Medications: albuterol HFA, 8 puff, inhalation, Q4H While awake (RT) aspirin, 81 mg, oral, Daily atorvastatin, 80 mg, oral, Nightly carvediloL, 3.125 mg, oral, BID with meals (bkfst, dinner) cefepime, 2,000 mg, intravenous, Q8H LEAH clopidogreL, 75 mg, oral, Daily dapagliflozin, 10 mg, oral, Daily enoxaparin, 40 mg, subcutaneous, Daily-2100 insulin lispro, 0-10 Units, subcutaneous, TID with meals insulin lispro, 0-5 Units, subcutaneous, Nightly lidocaine, 1 patch, transdermal, Daily lisinopriL, 5 mg, oral, Daily midodrine, 15 mg, oral, TID pantoprazole DR, 40 mg, oral, Daily polyethylene glycol, 17 g, oral, Q12H QUEtiapine, 50 mg, oral, Nightly senna-docusate, 2 tablet, oral, Q12H sodium bicarbonate, 1,300 mg, oral, BID sodium chloride 0.9%, 0.5-20 mL, intra-catheter, Q8H LEAH tamsulosin, 0.4 mg, oral, Daily with dinner vancomycin, 1,500 mg, intravenous, Q12H PRN Medications: ??? acetaminophen ? ? al & mag hydroxide cykbfcipcay-sbtktnbbqhxaabf-buuvikayc-nystatin ??? albuterol ??? dextrose OR dextrose ??? dextrose OR [DISCONTINUED] dextrose ??? glucagon ??? guaiFENesin ??? ondansetron Objective Vitals: Most Recent: Vitals: 05/29/21 1700 BP: 113/67 Pulse: 96 Resp: 19 Temp: 36.9 ??C (98.4 ??F) SpO2: 24hr Min/Max: Temp Min: 36.8 ??C (98.2 ??F) Max: 37 ??C (98.6 ??F) Pulse Min: 72 Max: 119 BP Min: 84/56 Max: 118/67 Resp Min: 14 Max: 27 SpO2 Min: 94 % Max: 99 % LDA: Introducer 05/04/21 Right Internal jugular (Active) Placement Date/Time: 05/04/21 (c) 1441 Hand Hygiene Performed: Yes Orientation: Right Location: Internal jugular Description (optional): multi-lumen access catheter (MAC) Number of days: 12 I/O: Date 05/28/21 0700 - 05/29/21 0659 05/29/21 07 - 05/30/21 0659 Shift 5833-0567 1712-1475 24 Hour Total 5145-8150 9854-2668 24 Hour Total INTAKE P.O. 1440 1440 I.V.(mL/kg) 113.8(1.4) 1535(20.1) 1648.8(21.6) IV Piggyback 450 450 Shift Total(mL/kg) 2003.8(25.2) 1535(20.1) 3538.8(46.4) OUTPUT Urine(mL/kg/hr) 1750(1.8) 1300(1.4) 3050(1.7) 750 750 Shift Total(mL/kg) 1750(22) 1300(17) 3050(40) 750(9.8) 750(9.8) NET 253.8 235 488.8 -750 -750 Weight (kg) 79.5 76.3 76.3 76.3 76.3 76.3 Physical Exam: Gen:Sittin in chair, ill appearing, NAD HEENT: NC/AT, PERRLA, EOMI Neck: Supple, Trachea Midline CV: NSR, S1 and S2, Distal pulses intact, Warm periphery, cap refill < 5 seconds Pulm: Diminished, on optiflow Abd: Soft, Nontender, Normoactive BS : Osorio in place Ext: No edema noted Derm: Warm, Dry, intact, surgical sites appropriately dress and C/D/I Neuro: Alert, Oriented, Moves all extremities Lab/Radiology/Diagnostic Review: Laboratory review: Lab results in the last 24 hours: Recent Results (from the past 24 hour(s)) POCT glucose Collection Time: 05/28/21 5:47 PM Result Value Ref Range Glucose, POC 244 (H) 70 - 199 mg/dL POCT glucose Collection Time: 05/28/21 7:55 PM Result Value Ref Range Glucose, POC 205 (H) 70 - 199 mg/dL Phosphorus Collection Time: 05/29/21 5:28 AM Result Value Ref Range Phosphorus, pl 2.7 2.3 - 4.5 mg/dL Magnesium Collection Time: 05/29/21 5:28 AM Result Value Ref Range Magnesium 1.8 1.4 - 2.5 mg/dL CBC without differential Collection Time: 05/29/21 5:28 AM Result Value Ref Range WBC 16.1 (H) 3.8 - 9.9 K/cumm Hgb 10.1 (L) 13.0 - 17.5 g/dL Hct 31.3 (L) 38.9 - 50.3 % Plt 508 (H) 150 - 400 K/cumm MPV 11.3 9.1 - 12.3 fL RBC 3.41 (L) 4.30 - 5.80 M/cumm MCV 91.8 81.3 - 96.4 fL MCH 29.6 27.1 - 33.3 pg MCHC 32.3 32.3 - 35.7 g/dL RDW CV 13.7 11.1 - 14.9 % RDW SD 45.6 35.7 - 48.1 fL NRBC abs 0.00 0.00 - 0.01 K/cumm Basic metabolic panel Collection Time: 05/29/21 5:28 AM Result Value Ref Range Sodium 130 (L) 135 - 145 mmol/L Potassium, pl 4.1 3.3 - 4.9 mmol/L Chloride 101 97 - 110 mmol/L CO2 18 (L) 22 - 32 mmol/L Anion gap 11 2 - 15 mmol/L BUN 18 8 - 25 mg/dL Creatinine 0.38 (L) 0.80 - 1.30 mg/dL Glucose 105 70 - 199 mg/dL Calcium 8.6 8.5 - 10.3 mg/dL eGFR Collection Time: 05/29/21 5:28 AM Result Value Ref Range eGFR 133 mL/min/1.73 m2 POCT glucose Collection Time: 05/29/21 8:01 AM Result Value Ref Range Glucose, POC 91 70 - 199 mg/dL POCT glucose Collection Time: 05/29/21 11:55 AM Result Value Ref Range Glucose, POC 274 (H) 70 - 199 mg/dL Beta-hydroxybutyrate Collection Time: 05/29/21 2:42 PM Result Value Ref Range Beta-Hydroxybutyrate <0.2 <=0.5 mmol/L POCT glucose Collection Time: 05/29/21 4:56 PM Result Value Ref Range Glucose, POC 234 (H) 70 - 199 mg/dL XR Chest 1 Vw Portable Result Date: 05/28/2021 Slight improved aeration especially in the left lung.. Electronically signed by: Deacon Cummings M.D. Plan: Neuro: #Acute pain - Tylenol PRN - Lidocaine patches #Insomnia - Seroquel CV: #Severe multivessel CAD s/p CABG #STEMI #HFrEF, chronic - S/p CABG by MD Granados - CCL (04/30) -> in-stent restenosis, unsuccessful angioplasty, IABP placed, IABP removed 05/06 - ASA/Atorvastatin/Plavix - Coreg and lisinopril - Cardiology following - CTS following - TTE (05/17) -> EF 35-40% Pulmonary: #Acute hypoxic respiratory failure 2/2 #COVID 19 pneumonia #HCAP, H. Flu, moraxilla, and MRSA - Optiflow 35L/40% - COVID 19 positive (05/19) - Dexamethasone to stop today - s/p Remdesivir - Aggressive pulmonary hygiene, IS, OOBTC in am - Maintain sats> 92% - Vanc/Cefe for 10 day course GI: Diet: Mechanical soft PUD PPx: Pantoprazole Bowel regimen: Docusate/Senna/Urvashi Endo: #Hyperglycemia, likely 2/2 stress response - Glycemic control - SSI - Frequent accuchecks - Endocrine following Renal: - BUN/Cr 18/0.38 - FBG net negative - trend renal function, avoid nephrotoxins, renal dose medications - optimize electrolytes with caution to renal function -goal K ~4, Mg > 2.2, phos > 3, iCAL > 4.5 -provide supplement as needed -AM BMP and electrolytes check #Hematuria 2/2 #Bladder tumor - (05/14) Cystoscopy for clot evacuation and cessation of bleeding sites - Mild hematuria improving - Urology following - Flomax Heme: #ABLA 2/2 surgery - No active signs of bleeding - Transfuse for hgb < 8 - CBC in am DVT PPX: SCD's/Lovenox ID: #COVID 19 pneumonia #HCAP, H. Flu, Moraxella, MRSA, Enterovirus and Rhinovirus - WBC: 16.1 - Tmax: 36.9 - s/p Remdesivir and Dexamethasone - Vanc/Cefe for 10 day course (day 4) - ID Following - CBC in am - CXR in am for evaluation of lung escamilla - Trend WBC and fever curve ICU standards of care: Physical therapy/Activity: PT/OT Access: RUE PICC (05/18) Goals of care: Full code Community AM Assessment and plan has been reviewed with attending, MD Jaja Kelly, [facility] [phone], [place] 1 Critical Care Medicine [facility] Cosigned by Dominique Wilkinson MD at 05/31/2021 11:59 AM STAFF FORESTER F FORESTER F FORESTER Associated attestation - Dominique Wilkinson MD - 05/31/2021 11:59 AM STAFF FORESTER I have seen and examined the patient on 05/29/21. I agree with or have edited the findings and planof care as documented in the [place] note. G: Appears to be improving. Older male sitting up in bed N: Awake, remains appropriately conversant CV: RRR, no JVD. Well healed sternum Resp: Coarse lungs bilaterally, requiring Optiflow support, less work of breathing GI: Abd soft, nontender, nondistended : Osorio with pink tinged urine, clearing MSK: mild LE edema Int: no rashes Dominique Wilkinson MD Section of Acute and Critical Care Surgery Department of Surgery [facility] * Rosy Muñoz NP - 05/28/2021 10:34 PM CST [facility] Critical Care Medicine Daily Progress Team: Community PM Subjective Patient is a 60 y.o. y/o male admitted on 05/01/2021 5:20 PM with the following indication(s) for ICU care - s/p CABG, now with COVID 19 viral pneumonia Interval History: -Optiflow oxygen therapy for acute, multi-factorial hypoxic respiratory failure -Plavix resumed, monitor for worsening hematuria -Decadron course completed today -labile blood glucose, frequent glucose checks through the night HPI 60 year old male with copd, obesity, pvd, htn, hld, dm2 & CAD s/p multiple LAD stents who p/w anterior STEMI after bladder procedure on 04/29. [facility] where they found in-stent thrombosis and an angioplasty was performed but stent could not be placed. A balloon pump was placed and the patient was transferred to the CVU. CT-surgery was consulted for CABG. The patie nt underwent a 4 vessel cabg on 05/04 w/ Dr. Granados (MAE->LAD, Saph vein->diag & obtuse, Saph->PDA). He developed rebleeding from his bladder tumor and this was adressed by urology. Heself extubated the next day after his CABG. His osorio was removed yesterday and he is currently post op day 11 from the CABG. He has been getting diuresed on the floor but has unfortunately had increasing oxygen requirement for the last 24 hours despite diuresis. He is currently on a non-rebreatherand being transferred to the ICU.?? Hospital Course 04/29 Cystoscopy at [facility] 04/30 STEMI, [facility] -> instent thrombosis, angioplasty, IABP, transfer to [facility] 05/04/21: Increased blood clot from osorio and obstruction with pain.?? 05/05/21: Brief asystole o/n w turning. Stable after. Self extubated in AM.?? 05/06/21: NAEON. Maintained on CPAP and optiflow.?? 05/07/21: NAEON. Up in chair at time of exam. TTF 05/10 near syncopal episode 05/14 cystoscopy with clot removal and fulguration of bleeding 05/17 readmit to ICU with pulmonary edema, lasix drip 05/18 Nasal cannula, on/off pressors, Negative VQ, ACTH Stim unremarkable 05/19 COVID positive, 15 L/NC, Remdesivir, dexamethasone 05/21 coude catheter placed, remains on optiflow, updated 05/22 increase seroquel, on optiflow 40L 75% 05/23 HF meds started, Lasix 40mg 05/24 FiO2 at 60% 05/25 PE protocol 05/26 pneumonia PCR ++++, start Vancomycin and Cefepime 05/27 Plavix resumed, overnight mild hematuria, Optiflow 05/28: Plavix, Optiflow, hypoxia x 1 getting up to chair Scheduled Medications: albuterol HFA, 8 puff, inhalation, Q4H While awake (RT) aspirin, 81 mg, oral, Daily atorvastatin, 80 mg, oral, Nightly carvediloL, 3.125 mg, oral, BID with meals (bkfst, dinner) cefepime, 2,000 mg, intravenous, Q12H LEAH clopidogreL, 75 mg, oral, Daily dapagliflozin, 10 mg, oral, Daily dexAMETHasone, 6 mg, intravenous, Daily docusate sodium, 100 mg, oral, BID enoxaparin, 40 mg, subcutaneous, Daily-2100 insulin lispro, 0-10 Units, subcutaneous, TID with meals insulin lispro, 0-5 Units, subcutaneous, Nightly lidocaine, 1 patch, transdermal, Daily midodrine, 15 mg, oral, TID pantoprazole DR, 40 mg, oral, Daily QUEtiapine, 50 mg, oral, Nightly [START ON 05/29/2021] sodium bicarbonate, 1,300 mg, oral, BID sodium chloride 0.9%, 0.5-20 mL, intra-catheter, Q8H LEAH tamsulosin, 0.4 mg, oral, Daily with dinner vancomycin, 1,500 mg, intravenous, Q12H Continuous Medications: PRN Medications: ??? acetaminophen ? ? al & mag hydroxide lflpgcfnsck-bamnlwdhgtgihyn-zpmfbjrgl-nystatin ??? albuterol ??? dextrose OR dextrose ??? dextrose OR [DISCONTINUED] dextrose ??? glucagon ??? guaiFENesin ??? ondansetron ??? polyethylene glycol Objective Vitals: Most Recent: Vitals: 05/28/21 2200 BP: 113/71 Pulse: 75 Resp: 18 Temp: SpO2: 24hr Min/Max: Temp Min: 36.1 ??C (96.9 ??F) Max: 36.9 ??C (98.4 ??F) Pulse Min: 66 Max: 101 BP Min: 94/61 Max: 119/70 Resp Min: 14 Max: 35 SpO2 Min: 91 % Max: 100 % LDA: PICC Double Lumen 05/18/21 Non-tunneled Power #1 Red, #2 Purple, Right Upper arm;Brachial (Active) Placement Date/Time: 05/18/21 1200 Catheter Time Out Checklist Completed: Yes Hand Hygiene Performed: Yes Site Prep: Alcohol;Betadine;Chlorhexidine Site Prep Agent has Completely Dried Before Insertion: Yes All 5 Sterile Barriers or Appropriate ... Number of days: 7 Urethral Catheter Coude (Active) Placement Date/Time: 05/21/21 1103 Inserted by: vanessa Catheter Type: Coude Tube Size (Fr.): 18 Fr Catheter Balloon Size: 5 mL Urine Returned: Yes Number of days: 4 Vent settings: FiO2 (%): [35 %-60 %] 60 % I/O: Date 05/27/21 1900 - 05/28/21 0659 05/28/21 0700 - 05/29/21 0659 Shift 0141-7596 24 Hour Total 5636-0816 6112-2494 24 Hour Total INTAKE P.O. 1445 1440 1440 I.V.(mL/kg) 425(5.3) 113.8(1.4) 113.8(1.4) IV Piggyback 450 450 Shift Total(mL/kg) 1870(23.5) 2003.8(25.2) 2003.8(25.2) OUTPUT Urine(mL/kg/hr) 750 2220 1750(1.8) 250 2000 Shift Total(mL/kg) 750(9.4) 2220(27.9) 1750(22) 250(3.1) 2000(25.2) NET -750 -350 253.8 -250 3.8 Weight (kg) 79.5 79.5 79.5 79.5 79.5 Physical Exam: General: ill appearing patient, frail Neurologic: awake, following commands HEENT: neck supple Cardiovascular: S1, S2; RRR Pulmonary: respirations slightly labored, Optiflow therapy Abdomen: + bowel sounds, soft, NT/ND Extremities: warm, dry, +pulses, no edema Drains: Osorio catheter - mild hematuria - improved Skin: without rashes or lesions Lab/Radiology/Diagnostic Review: Laboratory review: Lab results in the last 24 hours: Recent Results (from the past 24 hour(s)) POCT glucose Collection Time: 05/28/21 1:22 AM Result Value Ref Range Glucose, POC 109 70 - 199 mg/dL Vancomycin level trough Draw trough 30 minutes prior to dose. Collection Time: 05/28/21 2:47 AM Result Value Ref Range Vancomycin trough 9.3 (L) 10.0 - 20.0 mcg/mL Phosphorus Collection Time: 05/28/21 2:47 AM Result Value Ref Range Phosphorus, pl 2.7 2.3 - 4.5 mg/dL Magnesium Collection Time: 05/28/21 2:47 AM Result Value Ref Range Magnesium 1.5 1.4 - 2.5 mg/dL CBC without differential Collection Time: 05/28/21 2:47 AM Result Value Ref Range WBC 12.1 (H) 3.8 - 9.9 K/cumm Hgb 11.2 (L) 13.0 - 17.5 g/dL Hct 34.3 (L) 38.9 - 50.3 % Plt 468 (H) 150 - 400 K/cumm MPV 11.0 9.1 - 12.3 fL RBC 3.74 (L) 4.30 - 5.80 M/cumm MCV 91.7 81.3 - 96.4 fL MCH 29.9 27.1 - 33.3 pg MCHC 32.7 32.3 - 35.7 g/dL RDW CV 13.3 11.1 - 14.9 % RDW SD 43.7 35.7 - 48.1 fL NRBC abs 0.00 0.00 - 0.01 K/cumm Basic metabolic panel Collection Time: 05/28/21 2:47 AM Result Value Ref Range Sodium 135 135 - 145 mmol/L Potassium, pl 3.7 3.3 - 4.9 mmol/L Chloride 107 97 - 110 mmol/L CO2 17 (L) 22 - 32 mmol/L Anion gap 11 2 - 15 mmol/L BUN 19 8 - 25 mg/dL Creatinine 0.40 (L) 0.80 - 1.30 mg/dL Glucose 68 (L) 70 - 199 mg/dL Calcium 7.7 (L) 8.5 - 10.3 mg/dL eGFR Collection Time: 05/28/21 2:47 AM Result Value Ref Range eGFR 130 mL/min/1.73 m2 POCT glucose Collection Time: 05/28/21 4:40 AM Result Value Ref Range Glucose, POC 116 70 - 199 mg/dL POCT glucose Collection Time: 05/28/21 6:42 AM Result Value Ref Range Glucose, POC 121 70 - 199 mg/dL POCT glucose Collection Time: 05/28/21 9:49 AM Result Value Ref Range Glucose, POC 117 70 - 199 mg/dL POCT glucose Collection Time: 05/28/21 11:53 AM Result Value Ref Range Glucose, POC 131 70 - 199 mg/dL POCT glucose Collection Time: 05/28/21 5:47 PM Result Value Ref Range Glucose, POC 244 (H) 70 - 199 mg/dL POCT glucose Collection Time: 05/28/21 7:55 PM Result Value Ref Range Glucose, POC 205 (H) 70 - 199 mg/dL Assessment/Plan NEURO: #Insomnia: -Seroquel -encourage day/night cycle CV: #Acute anterior STEMI with CAD s/p PCI to the LAD #HFrEF -s/p CABG x 4 with CTS, Dr. 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 -supportive care PULM: #Acute Hypoxic Respiratory Failure: 2/2 Confirmed Positive COVID-19 viral pneumonia, improved sincestarting antibiotics Pulmonary Support: O2 Therapy: Supplemental oxygen O2 Del Method: High humidity nasal cannula i.e.Optiflow, Airvo FiO2 (%): 60 % O2 Flow Rate (L/min): 50 L/min FiO2 (%): 60 % -requiring Optiflow therapy -encourage aggressive pulmonary toilet -goal SPO2 > 88% -COVID medical management, Decadron completed today -start empiric antibiotic therapy 05/26/21 Diagnostics: (05/25) STAT PE protocol CT negative, + COVID 19 changes Consults: Cuff Matcher, ID physician Endo: #Hyperglycemia, labile blood glucose, NPH and scheduled Lispro discontinued -frequent glucose checks with SSI, D10 stopped -HgbA1c > 13 this admission Consults: Endocrinology GI: -Nutrition plan: ADAT, encourage PO intake, supplements RENAL: Lab Results Component Value Date CREATININE 0.40 (L) 05/28/2021 #History of gross hematuria s/p cystoscopy with clot evacuation and transurethral resection of bladder tumor at [place] -Plavix resumed today, mild hematuria improved -Cystoscopy 05/14/21 with clot evacuation and fulguration for reported tumor -05/21/21 Coude placed, keep Osorio catheter today / worsening hypoxia with exertion Date 05/27/21 1900 - 05/28/21 0659 05/28/21 0700 - 05/29/21 0659 Shift 3421-0575 24 Hour Total 0537-2367 8563-1952 24 Hour Total INTAKE P.O. 1445 1440 1440 I.V.(mL/kg) 425(5.3) 113.8(1.4) 113.8(1.4) IV Piggyback 450 450 Shift Total(mL/kg) 1870(23.5) 2003.8(25.2) 2003.8(25.2) OUTPUT Urine(mL/kg/hr) 750 2220 1750(1.8) 250 2000 Shift Total(mL/kg) 750(9.4) 2220(27.9) 1750(22) 250(3.1) 2000(25.2) NET -750 -350 253.8 -250 3.8 Weight (kg) 79.5 79.5 79.5 79.5 79.5 HEME: Lab Results Component Value Date HGB 11.2 (L) 05/28/2021 #ABLA 2/2 surgical procedure, critical illness -CBC in the AM -no indication for transfusion -transfuse for Hbg <7 -DVT prophylaxis: Lovenox ID: Lab Results Component Value Date WBC 12.1 (H) 05/28/2021 #Confirmed Positive COVID-19 pneumonia -Decadron x 10 days - completed today -Remdesivir course completed -baricitinib x 1 dose then discontinued 2/2 + culture results -trend WBC and fever curve -supportive COVID care #MRSA pneumonia, Moraxella, H Influenzea -Vancomycin and Cefepime started 05/26/21 Consults: ID physician Culture Results: No flowsheet data found. Lab Results Component Value Date MICROBIOLOGY Preliminary Report: No growth to date. 05/26/2021 MICROBIOLOGY Preliminary Report: No growth to date. 05/26/2021 MICROBIOLOGY (.) 05/26/2021 Preliminary Report - Final Review Pending: Growth indicates upper respiratory tirso. MICROBIOLOGY (.) 05/05/2021 Final Report: Greater than or equal to 100,000 colonies/ml of Yeast Britta pneumonia is very rare and requires a histopathological diagnosis. The recovery of these organisms in routine culture, in most cases, only represents overgrowth of the organism secondary to antimicrobial therapy. Please contact the microbiology laboratory at [phone] if identification or susceptibility testing is clinically indicated. Access: Right brachial PICC (05/18) --> place PIV in the AM and discontinue PPx: SCD, Lovenox Assessment and plan has been reviewed with attending, Dr. Dalton Muñoz NP [phone], [place] [facility] Department of Anesthesiology Division of Critical Care Medicine Cosigned by Austin Hoffman MD at 06/09/2021 1:01 PM STAFF FORESTER F FORESTER F FORESTER * Yves Weinberg MD - 05/28/2021 8:58 PM CST Nephrology Progress Note [facility] SUBJECTIVE 05/28/21 Appears better. All labs and data reviewed. Na and CR stable. Started on lisinopril. Will DC. On high dose midodrine. O2 sats still not Acceptable. Na 135, bicarb 17. Cr normal. Mg low, being replaced. 05/27/21 Doing about the same. Has completed tx for COVID. Still in ICU. All labs reviewed. 05/26/21 Doing fair. Appears comfortable. Some dyspnea. All labs and data reviewed. Na and Cr stable. Good UO. 05/25/21 Doing fair. All labs reviewed. Renal fn nl. Na 132. Overall slowly improving. 05/24/21 Pt seen/examined. All labs and data reviewed. Getting IV lasix PRN. Na 133, lytes and renal fn stable. 05/23/21 Pt seen/examined. All labs reviewed. Receiving K phos. BP soft, on hi dose midodrine. Na 132. I gave lasix 40 iv times 1 for falling UO. Remains in ICU. 05/22/21 Pt seen/examined. All labs and data reviewed. Na 134, Cr 0.62. Dyspnea better. Eager to go home but remains in ICU. Stable renal fn and lytes. OK for loop diuretics PRN. Avoid thiazides. 05/21/21 Pt seen/examined. All labs reviewed. Off lasix drip. Still dyspneic. Renal fn better. Na 135. 05/20/21 Pt seen/examined. All labs and data reviewed. COVID pos. On Dex and remdisivir. On lasix drip. Na 130, Cr 1.44. 05/19 Cr 1.41 Na 130. Started on Corlanor. Appears stable. BP remains very soft. UO not accurate. 05/17 Transferred to ICU for hi O2 requirements. Has left nostril epistaxis. On low dose pressors and lasix and insulin drip. Na 128, should improve with loop diuresis. Cr 1.2. 05/16 Creatinine stable and sodium trending up.On IV lasix,lytes wnl.Osorio out,having some problems with retention- nurses in contact with urology,doing bladder scans. 05/15/21 Doing fair. Osorio out. Has not voided yet. Na 131 with loop diuresis and improved. All labs and data reviewed. Excellent UO. Doing fair. Some flank pain and mild dyspnea. Na 127 and a little lower. BP better. Agreeable to cysto, but urology planning on conservative tx. Will start loop diuresis. OBJECTIVE Vitals: Vitals: 05/28/21 1700 05/28/21 1800 05/28/21 1900 05/28/211999 BP: 107/68 107/70 101/68 104/69 BP Location: Left arm Patient Position: HOB 30 degrees Pulse: 80 94 94 76 Resp: Temp: 36.9 ??C (98.4 ??F) TempSrc: Oral SpO2: 98% 96% 98% Weight: Height: Intake/Output Summary (Last 24 hours) at 05/28/20212057 Last data filed at 05/28/20211999 Gross per 24 hour Intake 2003.83 ml Output 2400 ml Net -396.17 ml REVIEW OF SYSTEMS Review of Systems Epistaxis, dyspnea. Constitutional: Negative. HENT: Negative. Eyes: Negative. Respiratory: Negative. Cardiovascular: Negative. Gastrointestinal: Negative. Genitourinary: Negative. Musculoskeletal: Negative. Skin: Negative. Allergic/Immunologic: Negative. Hematological: Negative. All other systems reviewed and are negative. PHYSICAL EXAM Physical Exam Constitutional: Appears well-developed. O2 on HENT: wnl Head: Normocephalic. Eyes: Pupils are equal, round, and reactive to light. Neck: Normal range of motion. Neck supple. Cardiovascular: Normal rate. Pulmonary/Chest: Effort normal and breath sounds normal. Abdominal: Soft. NT,active BS Musculoskeletal: Normal range of motion. Neurological: Alert, oriented. Skin: Skin is warm. Nursing note and vitals reviewed. MEDICATIONS Current Facility-Administered Medications: ??? acetaminophen (TYLENOL) tablet 650 mg, 650 mg, oral, Q6H PRN, Eleonora Duarte NP, 650 mg at 05/21/21 1545 ? ? al & mag hydroxide vbngtubkiqd-mnkcnqxeczriicc-cdwhcedoy-nystatin (MAGIC MOUTHWASH) suspension 1-1-1-1, 20 mL, swish & spit, Q4H PRN, Elena Kelly NP ??? albuterol 2.5 mg /3 mL (0.083 %) nebulizer solution 2.5 mg, 2.5 mg, nebulization, Q4H PRN (RT),Ralf Tomlinson MD, 2.5 mg at 05/17/21 0224 ??? albuterol HFA (PROVENTIL HFA,VENTOLIN HFA,PROAIR HFA) 90 mcg/actuation inhaler 8 puff, 8 puff, inhalation, Q4H While awake (RT), Ralf Tomlinson MD, 8 puff at 05/28/21 1158 ??? aspirin enteric coated tablet 81 mg, 81 mg, oral, Daily, Varsha Crowder NP, 81 mg at 05/28/21 1004 ??? atorvastatin (LIPITOR) tablet 80 mg, 80 mg, oral, Nightly, Rhina Granados MD, 80 mg at 05/27/21 2220 ??? carvediloL (COREG) tablet 3.125 mg, 3.125 mg, oral, BID with meals (bkfst, dinner), Nalini Clayton MD ??? cefepime (MAXIPIME) 2,000 mg in sodium chloride 0.9% 100 mL IVPB, 2,000 mg, intravenous, Q12H LEAH, Rosy Muñoz NP, Last Rate: 200 mL/hr at 05/28/21 1042, 2,000 mg at 05/28/21 1042 ??? clopidogreL (PLAVIX) tablet 75 mg, 75 mg, oral, Daily, Alejandro Gonzalez NP, 75 mg at 05/28/21 1154 ??? dapagliflozin (FARXIGA) tablet 10 mg, 10 mg, oral, Daily, Stephen Melgar MD, 10 mg at 005 ??? dexAMETHasone (DECADRON) 4 mg/mL injection 6 mg, 6 mg, intravenous, Daily, Silviano Huddleston NP, 6 mg at 05/28/21 1017 ??? dextrose oral liquid liquid 15 g, 15 g, oral, Q15 Min PRN OR dextrose (D10W) 10% bolus 250 mL, 250 mL, intravenous, Q15 Min PRN, Silviano Huddleston NP ??? dextrose oral liquid liquid 15 g, 15 g, oral, Q15 Min PRN OR [DISCONTINUED] dextrose (D10W)10% bolus 250 mL, 250 mL, intravenous, Q15 Min PRN, Anibal Lara MD ??? docusate sodium (COLACE) capsule 100 mg, 100 mg, oral, BID, 100 mg at 05/28/21 1005 OR [DISCONTINUED] docusate (COLACE) 10 mg/mL oral liquid 100 mg, 100 mg, feeding tube, BID, Rhina Granados MD, 100 mg at 05/05/21 0842 ??? enoxaparin (LOVENOX) syringe 40 mg, 40 mg, subcutaneous, Daily-2100, Rhina Granados MD, 40 mg at 05/27/212220 ??? glucagon injection 1 mg, 1 mg, intramuscular, Q30 Min PRN, Silviano Huddleston NP ??? guaiFENesin (ROBITUSSIN) 20 mg/mL oral liquid 200 mg, 200 mg, oral, QID PRN, Caleb Toth, HEIDY, 200 mg at 05/25/21 2353 ??? insulin lispro (HumaLOG, ADMELOG) 100 unit/mL injection 0-10 Units, 0-10 Units, subcutaneous, TID with meals, Silviano Huddleston NP, 4 Units at 05/28/21 1759 ??? insulin lispro (HumaLOG, ADMELOG) 100 unit/mL injection 0-5 Units, 0-5 Units, subcutaneous, Nightly, Silviano Huddleston NP, 1 Units at 05/25/21 2103 ??? lidocaine (LIDODERM) 5 % patch 1 patch, 1 patch, transdermal, Daily, Rosy Muñoz NP, Medication Removed at 05/27/212220 ??? lisinopriL (PRINIVIL,ZESTRIL) tablet 5 mg, 5 mg, oral, Daily, Nalini Clayton MD, 5 mg at 05/28/21 1100 ??? midodrine (PROAMATINE) tablet 15 mg, 15 mg, oral, TID, Silviano Huddleston NP, 15 mg at 05/28/21 1551 ??? ondansetron (ZOFRAN) injection 4 mg, 4 mg, intravenous, Q6H PRN, Rhina Granados MD ??? pantoprazole DR (PROTONIX) extended release tablet 40 mg, 40 mg, oral, Daily, Rhina Granados MD, 40 mg at 05/28/21 1008 ??? polyethylene glycol (MIRALAX) packet 17 g, 17 g, oral, Daily PRN, Rhina Granados MD, 17 g at 05/27/21 0902 ??? QUEtiapine (SEROquel) tablet 50 mg, 50 mg, oral, Nightly, Silviano Huddleston NP, 50 mg at 05/27/21 2219 ??? sodium bicarbonate tablet 650 mg, 650 mg, oral, BID, Yves Weinberg MD, 650 mg at 05/28/21 1016 ??? sodium chloride 0.9% flush 0.5-20 mL, 0.5-20 mL, intra-catheter, Q8H [facility], Rhina Granados MD, 10 mL at 05/28/21 1335 ??? tamsulosin (FLOMAX) extended release capsule 0.4 mg, 0.4 mg, oral, Daily with dinner, Elena Kelly, EFREN, 0.4 mg at 05/28/21 1751 ??? vancomycin 1500 mg/250 mL in sodium chloride 0.9% (premix) 1,500 mg, 1,500 mg, intravenous, Q12H, Rosy Muñoz NP, 1,500 mg at 05/28/21 1752 Lab/Radiology/Diagnostic Review: Recent Results (from the past 24 hour(s)) POCT glucose Collection Time: 05/27/21 10:17 PM Result Value Ref Range Glucose, POC 83 70 - 199 mg/dL POCT glucose Collection Time: 05/28/21 1:22 AM Result Value Ref Range Glucose, POC 109 70 - 199 mg/dL Vancomycin level trough Draw trough 30 minutes prior to dose. Collection Time: 05/28/21 2:47 AM Result Value Ref Range Vancomycin trough 9.3 (L) 10.0 - 20.0 mcg/mL Phosphorus Collection Time: 05/28/21 2:47 AM Result Value Ref Range Phosphorus, pl 2.7 2.3 - 4.5 mg/dL Magnesium Collection Time: 05/28/21 2:47 AM Result Value Ref Range Magnesium 1.5 1.4 - 2.5 mg/dL CBC without differential Collection Time: 05/28/21 2:47 AM Result Value Ref Range WBC 12.1 (H) 3.8 - 9.9 K/cumm Hgb 11.2 (L) 13.0 - 17.5 g/dL Hct 34.3 (L) 38.9 - 50.3 % Plt 468 (H) 150 - 400 K/cumm MPV 11.0 9.1 - 12.3 fL RBC 3.74 (L) 4.30 - 5.80 M/cumm MCV 91.7 81.3 - 96.4 fL MCH 29.9 27.1 - 33.3 pg MCHC 32.7 32.3 - 35.7 g/dL RDW CV 13.3 11.1 - 14.9 % RDW SD 43.7 35.7 - 48.1 fL NRBC abs 0.00 0.00 - 0.01 K/cumm Basic metabolic panel Collection Time: 05/28/21 2:47 AM Result Value Ref Range Sodium 135 135 - 145 mmol/L Potassium, pl 3.7 3.3 - 4.9 mmol/L Chloride 107 97 - 110 mmol/L CO2 17 (L) 22 - 32 mmol/L Anion gap 11 2 - 15 mmol/L BUN 19 8 - 25 mg/dL Creatinine 0.40 (L) 0.80 - 1.30 mg/dL Glucose 68 (L) 70 - 199 mg/dL Calcium 7.7 (L) 8.5 - 10.3 mg/dL eGFR Collection Time: 05/28/21 2:47 AM Result Value Ref Range eGFR 130 mL/min/1.73 m2 POCT glucose Collection Time: 05/28/21 4:40 AM Result Value Ref Range Glucose, POC 116 70 - 199 mg/dL POCT glucose Collection Time: 05/28/21 6:42 AM Result Value Ref Range Glucose, POC 121 70 - 199 mg/dL POCT glucose Collection Time: 05/28/21 9:49 AM Result Value Ref Range Glucose, POC 117 70 - 199 mg/dL POCT glucose Collection Time: 05/28/21 11:53 AM Result Value Ref Range Glucose, POC 131 70 - 199 mg/dL POCT glucose Collection Time: 05/28/21 5:47 PM Result Value Ref Range Glucose, POC 244 (H) 70 - 199 mg/dL POCT glucose Collection Time: 05/28/21 7:55 PM Result Value Ref Range Glucose, POC 205 (H) 70 - 199 mg/dL Recent Labs Lab Units 05/26/21 1601 CLARITY U Clear COLOR U Yellow KETONES UR Negative NITRITE UR Negative SPEC GRAV U 1.028 UROBILINOGEN UR mg/dL <2.0 WBC UR QT /HPF 11-20* XR Chest 1 View - Portable - in AM Result Date: 05/11/2021 Narrative: EXAMINATION: XR CHEST 1 VIEW HISTORY: The patient is a 60-year-old male who has had cardiac surgery. Comparison made with the previous study dated 05/10/2021. TECHNIQUE: AP portable view of the chest. FINDINGS: Lungs clear. Heart not enlarged. Aortic atherosclerosis. No failure. The right IJ [place] catheter has been retracted with its tip in the distal superior vena cava. Impression: IMPRESSION: No failure. Electronically signed by: Elvira Blackman M.D. XR Chest 1 View - Portable - in AM Result Date: 05/10/2021 Narrative: EXAMINATION: XR CHEST 1 VIEW DATE: 05/10/2021 2:40 AM COMPARISON: 05/09/2021 HISTORY: 60-year-old man cardiac surgery follow-up FINDINGS:Compared with study the previous day, significant improvement. There is cardiomegaly with postsurgical changes with continued and decreasing failure. Bibasilar atelectasis with left pleural fluid decreasing. No pneumothorax. [place] catheter remainsin place Impression: Decreasing failure, atelectasis and left effusion. Electronically signed by: Deandre Lomeli M.D. XR Chest 1 View - Portable - in AM Result Date: 05/09/2021 Narrative: EXAMINATION: XR CHEST 1 VIEW DATE: 05/09/2021 4:10 AM HISTORY: 60-year-old man cardiac surgery follow-up FINDINGS:Compared with study the previous day, significant improvement. There is cardiomegaly with postsurgical changes with continued but decreasing failure. Bibasilar atelectasis with left pleural fluid decreasing. No pneumothorax. [place] catheter remains in place Impression: Decreasing failure, atelectasis and left effusion. Electronically signed by: Deandre Lomeli M.D. XR Chest 1 View - Portable - in AM Result Date: 05/08/2021 Narrative: EXAMINATION: XR CHEST 1 VIEW DATE: 05/08/2021 4:15 AM HISTORY: 60-year-old man cardiac surgery follow-up FINDINGS:Compared with study the previous day, significant improvement. There is cardiomegaly with postsurgical changes with continued but decreasing failure. Bibasilar atelectasis with left pleural fluid. No pneumothorax. [place] catheter remains in place Impression: Decreasing failure. No pneumothorax. Electronically signed by: Deacon Cummings M.D. XR Chest 1 View - Portable - in AM Result Date: 05/07/2021 Narrative: EXAMINATION: XR CHEST 1 VIEW DATE: 05/07/2021 3:55 AM HISTORY: 60-year-old man follow-upcardiac surgery FINDINGS:Compared with study of the previous day, postsurgical changes in the heartand mediastinum with cardiomegaly are stable. [place] catheter remains in place. Left thoracostomy tube remains in place. No pneumothorax. Pulmonary vascular congestion with interstitial lung disease remain prominent. Impression: Persistent prominent interstitial lung disease with failure. Electronically signed by: Deacon Cummings M.D. XR Chest 1 View - Portable - in AM Result Date: 05/06/2021 Narrative: EXAMINATION: XR CHEST 1 VIEW DATE: 05/06/2021 4:05 AM INDICATION: Cardiac surgery. COMPARISON: 05/05/2021. FINDINGS: No pneumothorax or pleural effusion. Similar-appearing pulmonary vascular congestion and interstitial opacities most notable in the bilateral upper lobes consistent with pulmonary edema. Pulmonary catheter catheter, left thoracostomy tube, and mediastinal drain are appropriately position. Intra-aortic balloon pump is appropriately positioned. Interval removal of endotracheal tube. Impression: 1. Interval removal of endotracheal tube. Remaining tubes and lines are appropriately positioned. 2. Similar-appearing cardiomegaly, pulmonary vascular congestion, and prominent bilateralinterstitial markings suggestive of interstitial pulmonary edema. Electronically signed by: Richard Zhao II, D.O. XR Chest 1 View - Portable - in AM Result Date: 05/05/2021 Narrative: EXAMINATION: XR CHEST 1 VIEW DATE: 05/05/2021 4:15 AM HISTORY: 60-year-old man cardiac surgery follow-up FINDINGS:Compared with the study of the prior day, tubes and catheters remain satisfactorily positioned. Worsening pulmonary vascular congestive changes are seen. Cardiomegaly with postsurgical changes stable. No pneumothorax. Impression: Increasing failure. Electronically signed by: Deacon Cummings M.D. XR Chest 1 Vw Portable Result Date: 05/05/2021 Narrative: EXAMINATION: XR CHEST 1 VIEW DATE: 05/04/2021 8:40 PM HISTORY: 60-year-old man coronary artery bypass follow-up FINDINGS:Compared with the study of earlier the same day, postsurgical changes now evident within the heart and mediastinum with cardiomegaly. Interval placement of endotracheal tube, nasogastric tube, [place] catheter, left thoracostomy tube and mediastinal drain all in satisfactory position. No pneumothorax. Interstitial lung disease with mild pulmonary vascular congestive changes. Aortic balloon pump is no longer seen. Impression: Tube placements with postsurgical changes with cardiomegaly with interstitial lung disease and mild failure with no pneumothorax. Electronically signed by: Deacon Cummings M.D. XR Chest 1 Vw Portable Result Date: 05/04/2021 Narrative: EXAMINATION: XR CHEST 1 VIEW DATE: 05/04/2021 9:05 AM HISTORY: Coronary artery disease FINDINGS:Comparison is made with study of 2 days earlier. Cardiomegaly, COPD with interstitial lung disease stable. Mild failure. Aortic balloon pump stable in position at the proximal descending aorta. No pneumothorax. No new infiltrates. Impression: Stable appearance. COPD cardiomegaly, with mild failure suspected. Electronically signed by: Deacon Cummings M.D. XR Chest 1 Vw Portable Result Date: 05/02/2021 Narrative: EXAMINATION: XR CHEST 1 VIEW DATE: 05/02/2021 5:15 AM INDICATION: Intra-aortic balloon pump. COMPARISON: 05/01/2021. FINDINGS: Appropriately positioned intra-aortic balloon pump appears unchanged. No pneumothorax or pleural effusion. Mixed reticular and alveolar opacities demonstrated inall lung lobes appear most significant in the upper lobes and perihilar regions, unchanged. Impression: 1. Appropriately positioned intra-aortic balloon pump. 2. Similar mixed reticular and alveolar opacities most notable in the bilateral upper lobes and perihilar region. Electronically signed by: Richard Lopez II, D.O. XR Chest 1 Vw Portable Result Date: 05/02/2021 Narrative: EXAMINATION: XR CHEST 1 VIEW DATE: 05/01/2021 8:15 PM INDICATION: Hypoxia. COMPARISON: None. FINDINGS: No pneumothorax. No pleural effusion. Mixed reticular and alveolar opacities are demonstrated in all lung lobes but demonstrate an upper lobe and perihilar predominance. Findings may represent pulmonary edema on background of centrilobular emphysematous changes. Underlying infectious process not entirely excludable. Cardiac mediastinal silhouette is stable in appearance. No acute osseous abnormality. Impression: Mixed reticular and alveolar opacities are demonstrated in all lung lobes but demonstrate an upper lobe and perihilar predominance. Findings may represent pulmonary edema on background ofcentrilobular emphysematous changes. Electronically signed by: Richard Lopez II, D.O. Transthoracic Echo (TTE) Limited Result Date: 05/07/2021 Narrative: [place] [address] Limited Echocardiogram Report Patient Name: DEEPAK ALVARADO : 1960 StudyDate: 05/07/2021 12:16:52 PM Gender: M Tech: SR Location: [id number] Ref.Provider: RHINA GRANADOS Height(Cm): 175 BSA: 2.1 Weight(Kg): 91 Heart Rate: 82 BP: 127/44 Quality: Good Order Provider: Dr. Sutton Procedures: Echocardiographic Report: Limited transthoracic echocardiogram with 2D and M-Mode. Measurements: 2D/M Mode Measurement Value Normal Range LVIDd 2D 3.43 [ 4.20 - 5.90 ] cm LVIDs 2D 2.59 [ 2.30 - 3.90 ] cm LVPWd 2D 1.01 [ 0.60 - 1.00 ] cm IVSd 2D 0.71 [ 0.60 -0.90 ] cm Findings: Left Ventricle: Reduced left ventricular cavity size. Mild global left ventricular systolic dysfunction. Ejection fraction is measured at 42 %. These segments of the LV are hypokinetic: apical anterior segment. Pericardium: Trivial pericardial effusion. No echocardiographic evidence to suggest pericardial tamponade. Conclusions: Reduced left ventricular cavity size. Mild global left ventricular systolic dysfunction. Ejection fraction is measured at 42 %. These segments of the LV are hypokinetic: apical anterior segment. Trivial pericardial effusion. No echocardiographic evidence to suggest pericardial tamponade. Electronically Signed By: Gianni Francois MD, [facility] 2021-05-07 12:54:09 STAFF FORESTER Transthoracic Echo Complete W Doppler/CF Result Date: 05/02/2021 Narrative: [address] [address] Echocardiogram Report Patient Name: DEEPAK ALVARADO W : 1960 Study Date: 05/02/2021 8:50:02 AM Gender: M Tech: SR Location: [id number] Ref Provider: KATYAL, ALOKHeight(Cm): 175 BSA: 2.11 Weight(Kg): 92 Heart Rate: 89 BP: 102/52 Quality: Good Order Provider: NALINI CLAYTON PROCEDURES: Echocardiographic Report: Transthoracic echocardiogram with complete 2D, M-Mode, and color Doppler examination. INDICATIONS: Free Text. Measurements: 2D/M Mode DopplerMeasurement Value Normal Range Measurement Value Normal Range EF Teich 2D 30.0 [ 55.0 - 70.0 ] percent CHRISTINA Vmax 2.04 [ 2.00 - 4.00 ] cm2 EF Mod 4C 42.2 [ 55.0 - 70.0 ] percent AV Mean PG 5 [ 2 - 4 ] mmHg LVIDd 2D 4.54 [ 4.20 - 5.90 ] cm AV Peak Ramesh 1.54 [ 1.00 - 1.70 ] m/s LVIDs 2D 3.91 [ 2.30 - 3.90 ] cm AV VTI 26.93 cm LVPWd 2D 0.92 [ 0.60 - 1.00 ] cm LVOT Diam 2.20 [ 1.70 - 2.10 ] cm IVSd 2D 0.76 [ 0.60 - 0.90 ] cm LVOT Peak Ramesh 0.83 [ 0.70 - 1.10 ] m/s LA Dimension MM 5.08 [ 3.00 - 4.00 ] cm LVOT VTI 13.82 [ 20.00 - 30.00 ] cm AoR Diam MM 4.12 [ 2.60 - 3.70 ] cm MV E Peak Ramesh 0.85 [ 0.60- 1.30 ] m/s LA Volume Index 20.83 [ 16.00 - 28.00 ] cc/m2 MV A Peak Ramesh 1.14 [ 1.00 - 1.20 ] m/s ACS MM 1.91 [ 1.50 - 2.60 ] cm MV Mean PG 1 [ <= 5 ] mmHg MV PHT 43 [ 20 - 100 ] msec MVA 2.20 MV Decel Time 137 [ 104 - 258 ] msec PV Peak Ramesh 1.10 [ 0.40 - 0.80 ] m/s TR Peak Ramesh 1.32 [ 1.00 - 2.80 ] m/s TR Peak PG 7 mmHg RVSP 16.93 [ 10.00 - 36.00 ] mmHg E' 0.06 E/E' 14.00 Measurement Value Normal Range Measurement Value Normal Range 2D/M Mode Doppler - FINDINGS: Atrial Septum: Normal atrial septum. Left Ventricle: Normal left ventricular size. Left ventricle not well visualized. There is severe hypokinesis of the mid anteroseptal, anterior, and apical mancilla. Normal left ventricular wall thickness. Impaired diastolic relaxation Grade I. Ejection fraction is visually estimated at 40 %. Left Atrium: The left atrium is normal in size. Right Ventricle: Normal right ventricular size. Normal right ventricular systolic function. Right Atrium: The right atrium is normal in size. Aortic Valve: Normal structure of the aortic valve. No evidence of hemodynamically significant aortic stenosis by Doppler. No aortic regurgitation. Mitral Valve: Normal structure of the mitral valve. Trivialregurgitation of the mitral valve. Pulmonic Valve: Pulmonic valve not well visualized. Trivial regur gitation in the pulmonic valve. Tricuspid Valve: Normal structure of the tricuspid valve. Trivial regurgitation in the tricuspid valve. Pericardium: Normal pericardium with no significant pericardialeffusion. Aorta: Normal aortic root. IVC: Normal size and normal respiratory collapse consistent with normal right atrial pressure (<5 mmHg). CONCLUSIONS: Technically difficult study with limited views. Normal left ventricular size. Left ventricle not well visualized. There is severe hypokinesisof the mid anteroseptal, anterior, and apical mancilla. Normal left ventricular wall thickness. Impaired diastolic relaxation Grade I. Ejection fraction is visually estimated at 40 %. Normal right ventricular size. Normal right ventricular systolic function. Normal structure of the mitral valve. Trivial regurgitation of the mitral valve. Normal structure of the tricuspid valve. Trivial regurgitationin the tricuspid valve. Electronically Signed By: Rylee Brito DO, FACJustyna, [place], [facility] 2021-05-02 14:07:25 STAFF FORESTER CC: CC: CC: ASSESSMENT/PLAN Hyponatremia from SIADH and possibly from zaroxylyn use. Work up for hyponatremia ongoing. PO FR. No normotonic fluids yet. Urine lytes and osm. If in clinical fluid overload, can use tolvaptan. Renal fn is better. Na better with loop diuresis, use PRN. Daily BMP. Na 135 and acceptable. Midodrine for hypotension. DC lisinopril. NAGMA noted Increase oral bicarb ?? Recent bladder tumor removal with hematuria. ?? -??Urology is following.H/H stable -Cysto vs conservative tx. -Voiding trial, hematuria has stopped. -Epistaxis Use nasal pillows. -CHF with decompensation Continue diuresis. RHC not done. Agree with Corlanor. ?? Hypokalemia from diuresis. Replace PRN. ?? 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 COVID positive. Per protocol. On Remdisivir and Dex. ?? Syncopal episode -(+) orthostasis -receiving albumin -IV lasix was discontinued. ??There is a 1x order for zaroxolyn 10mg this am- recommend holding fornow. ??D/w RN ?? Coronary artery disease -s/p CABG post STEMI -??underwent four-vessel bypass ??MAE to the LAD, sequential saphenous vein graft to diagonal and obtuse marginal and a vein graft to the PDA. -s/p??low dose dobutamine -paced rhythm ?? Moderate LV dysfunction -s/p IV??lasix??and??low dose??dobutamine -Beta blockers, ??[place] once off dobutamine-would hold off adding given syncopal episode this am -repeat ECHO 05/07 EF 42% (see above) ?Nonsustained ventricular tachycardia -no recurrence of VT -K 3.7, Mg??2.0. ??Supplement to keep K >/= 4.0, Mg >/= 2.0 ?Diabetes mellitus -?on lantus and SSI ?? COPD: ?? -on?O2 NC??4L (dried blood to L nare humidified o2 ordered) ?? Dyslipidemia -?Continue atorvastatin. ?PAD -?Stable ? Anemia -Hb??11.4 (10.5)??(8.6) -monitor ?? I can be reached at [phone] with any concerns. Thank you Lc Simons MD for the consult. Yves Weinberg MD [employer] [phone] F FORESTER * Angelo Vance MD - 05/28/2021 3:16 PM CST Infectious Disease Deepak Alvarado Admit Date: 05/01/2021 LOS: 27 Days Clinical Course Improvingin New Symptoms Positive SOB, no Cp, no nvd, no rashes Data Vitals: 05/28/21 1000 05/28/21 1100 05/28/21 1200 05/28/21 1300 BP: 115/73 119/70 106/63 105/61 Pulse: 89 83 87 89 Resp: 18 18 24 (!) 35 Temp: TempSrc: SpO2: 91% 91% 96% 100% Weight: Height: Temp (24hrs), Av.4 ??C (97.5 ??F), Min:36.1 ??C (96.9 ??F), Max:36.7 ??C (98 ??F) Recent Labs Lab Units 05/28/21 0247 05/27/21 0640 05/26/21 0623 WBC K/cumm 12.1* 13.5* 14.0* HEMOGLOBIN g/dL 11.2* 9.9* 10.7* HEMATOCRIT % 34.3* 29.8* 32.6* PLATELETS K/cumm 468* 519* 535* Recent Labs Lab Units 05/28/21 0247 05/27/21 0640 05/27/21 0640 05/26/21 0623 05/26/21 0623 BUN SERUM mg/dL -- 22 -- 22 CREATININE mg/dL 0.40* < > 0.42* < > 0.48* < > = values in this interval not displayed. Scheduled Meds:albuterol HFA, 8 puff, inhalation, Q4H While awake (RT) aspirin, 81 mg, oral, Daily atorvastatin, 80 mg, oral, Nightly carvediloL, 3.125 mg, oral, BID with meals (bkfst, dinner) cefepime, 2,000 mg, intravenous, Q12H LEAH clopidogreL, 75 mg, oral, Daily dapagliflozin, 10 mg, oral, Daily dexAMETHasone, 6 mg, intravenous, Daily docusate sodium, 100 mg, oral, BID enoxaparin, 40 mg, subcutaneous, Daily-2100 insulin lispro, 0-10 Units, subcutaneous, TID with meals insulin lispro, 0-5 Units, subcutaneous, Nightly lidocaine, 1 patch, transdermal, Daily lisinopriL, 5 mg, oral, Daily midodrine, 15 mg, oral, TID pantoprazole DR, 40 mg, oral, Daily QUEtiapine, 50 mg, oral, Nightly sodium bicarbonate, 650 mg, oral, BID sodium chloride 0.9%, 0.5-20 mL, intra-catheter, Q8H LEAH tamsulosin, 0.4 mg, oral, Daily with dinner vancomycin, 1,500 mg, intravenous, Q12H Continuous Infusions:dextrose 10%, 10 mL/hr, Last Rate: 10 mL/hr (05/28/21 1127) PRN Meds:.??? acetaminophen ? ? al & mag hydroxide rmjnnmhqesr-uzkltqdlrnzyqha-uodkdwhcx-nystatin ??? albuterol ??? dextrose OR dextrose ??? dextrose OR [DISCONTINUED] dextrose ??? glucagon ??? guaiFENesin ??? ondansetron ??? polyethylene glycol Exam General appearance: alert, cooperative, no distress HEENT: (-)icterus, Oropharnyx is normal, NCAT Neck: No palpable LN Lungs: Course breath sounds and symmetric; minimal to moderate respiratory effort Heart: regular rhythm, normal S1 and S2, no m/r/g Abdomen: soft without mass, non-tender, +bowel sounds, no HSM Skin: (-)new rashes, no ulcerations MSK: no gross deformities, FROM Vascular: no Edema, pulses present bilaterally Neuro: No focal deficits Psych: Appropriate mood and affect ?? Cultures 05/02 COVID 19- 05/19 COVID 19 positive 05/26 blood cultures negative ?? 05/05 tracheal aspirate culture with yeast 05/26 pneumonia sputum culture PCR with Moraxella/Haemophilus/MRSA/rhino virus/enterovirus ?? Assessment: 1. Acute respiratory failure 2. COVID-19 infection 3. Status post CABG 4. Hematuria 5. Pneumonia 6. Rhino virus ?? Plan: 1. Continue treatment for COVID 2. Continue supportive care 3. Continue cefepime and vanc to complete 10 day course 4. Rhino virus may have been present on admission 5. Continue supportive care Angelo Vance MD 05/28/2021 F FORESTER * Shruthi Hu COTA - 05/28/2021 2:26 PM CST Occupational Therapy NOTE / SESSION TYPE: DAILY PROGRESS / TREATMENT Patient's Name: Deepak Alvarado Age / Sex: 60 y.o. / male Room: [place] [id number] : 1960 Date of service: 05/28/21 TIME IN: 14:27 TIME OUT: 15:09 Patient Active Problem List Diagnosis ??? ST elevation myocardial infarction (STEMI) (HCC) Past Medical History: Diagnosis Date ??? Chronic obstructive pulmonary disease (CMS/HCC) (HCC) COPD ??? Coronary artery disease ??? Diabetes mellitus (HCC) ??? H/O heart artery stent 2006 ??? Hypertension Hypertension ??? ST elevation (STEMI) myocardial infarction (HCC) 05/01/2021 History reviewed. No pertinent surgical history. Precautions (including weight-bearing): Fall risk, Bed / chair alarm, Sternal precautions, Cardiac precautions, Contact isolation: RHINO/ENTEROVIRUS AND COVID and Airborne precautions: COVID Subjective: PATIENT REPORTS, I'M SICK OF LAYING IN THIS BED, I'M JUST READY TO GO HOME ALREADY. Therapy Pain: Pre-therapy pain level: 0 /10 Pain location: No pain - Location N/A Pain Intervention(s): No pain - Intervention N/A Post-therapy pain level: 0 /10 Pain scale reference: 0-10 SCALE Objective: Appearance: Presentation upon OT arrival: Patient Supine with head of bed elevated Presentation upon OT departure: Patient Sitting in bedside chair Bed / Chair alarm in place and activated upon OT departure: Yes Call light within arms reach of patient at end of session: Yes Completed patient handoff and notified MANAGER RENTAL / RN, name: DEEPAK, of patient's location and functionalstatus upon completion of session VITAL SIGNS: Heart rate at rest: 89 BPM Heart rate with activity: 99 BPM O2 saturations at rest: 100 % O2 saturations with activity: 91 % Oxygen LPM: REMAINED ON CONTINUOUS OPTIFLOW @ 50% PER 30 LPM Blood pressure at rest: 106 / 61 Blood pressure with activity: 107 / 78 Cognitive / Perceptual: A&O X 4, INTACT Mobility / Transfers: Bed Mobility: MIN [id number] ASSIST FOR TRUNK COMPONENT FROM [place] WITH HOB ELEVATED > SEATED AT EOB PATIENT REQUIRED INCREASED TIME TO GUIDE BLEs OUT OF BED D/T INCREASED STIFFNESS THIS AFTERNOON Transfer(s): SBA FROM SEATED AT EOB > STANDING AT EOB WITHOUT DEVICE SBA FROM STANDING AT EOB > SEATED AT BEDSIDE CHAIR WITH UTILIZATION OF STAND- PIVOT TRANSFER TECHNIQUE AND NO DEVICE Living Skills / Other Activities: (PATIENT WAS ABLE TO STATE 4/6 STERNAL PRECAUTIONS WITH 100% ACCURACY AND MIN VCS UPON INITIAL THERAPIST REQUEST. PATIENT MAINTAINED PRECAUTIONS DURING COMPLETION OF ALL TASKS THIS AFTERNOON WITH 100% ACCURACY AND NO VCS.) PUTTING ON / TAKING OFF FOOTWEAR LOCATION OF PUTTING ON / TAKING OFF FOOTWEAR: Sitting in bedside chair / recliner TASKS COMPLETED: Footie(s) OVERALL ASSIST LEVEL: SET-UP / CLEAN-UP ASSISTANCE ADDITIONAL DOCUMENTATION: PATIENT DOFFED/DONNED BILATERAL FOOTIES WITH UTILIZATION OF LEG-CROSSOVERTECHNIQUE AND SET-UP ASSIST ONLY D/T DEMONSTRATION OF PATIENT UTILIZING PLB TECHNIQUE INTO ADL TASK, WELL TAKING TIME TO COMPLETE TASK IN ORDER TO NOT DESATURATE O2 LEVEL Caregiver Present: No Education & Training Provided: Role of OT, OT plan of care, ADL training, Compensatory ADL strategies, Bed mobility training, Functional transfer training, Safety education, Pursed lip breathing / Relaxation techniques and CARDIAC AND STERNAL precautions Assessment: Activity tolerance / response to OT session: GOOD PARTICIPATION, GOOD MOTIVATION, RECEPTIVE TO EDUCATION / TRAINING, PRN REST BREAKS REQUIRED and INCREASED TIME FOR TASK COMPLETION SECONDARY TO INCREASED STIFFNESS IN BILATERAL LEs Progress towards goals: Please refer to care plan from this date for progress towards individual goals Plan: Therapy Plan: Rehab Potential (Prognosis): good OT Recommendations This Date: Location: Inpatient rehabilitation pending qualify criteria Supervision: 24 hour Follow-up Therapy Recommendations: SKILLED OT IN INPATIENT REHABILITATION SETTING OT Consultation in Regards to Discharge Recommendations: N/A Frequency of therapy: 3-5 times / week If this is the last note, consider this the discharge summary CAITIE Tinsley 05/28/21 Cosigned by Mariaelena Person OT at 05/28/2021 4:53 PM STAFF FORESTER F FORESTER F FORESTER * Narciso Mayre MD - 05/28/2021 1:25 PM CST Pulmonary Daily Progress Chief complaint/reason for consult: Respiratory failure. Interval History: On optiflow 50 % 45 L Afebrile alert Appears comf States breathing feels ok No sputum production No NVD COVID positive 05/19/21 Presenting History: 60 yo man w COPD, DM, CAD/stents admitted 05/01/21 with chest pain. Had recent hematuria as well. Workup revealed an acute MT. Cath showed multi-vessel CAD. Had balloon pump placed. CABG x 4 done on 05/04/21. He was continued on mechanical ventilation and self extubated this AM (05/05/21). He is on multiple pressors. Sedated with precedex. Some tachypnea. A balloon pump is in place. Current tobacco use. COPD listed as prior diagnosis. No inhalers on home med list. Allergies: Allergies Allergen Reactions ??? Metoclopramide Medications: Scheduled Meds:albuterol HFA, 8 puff, inhalation, Q4H While awake (RT) aspirin, 81 mg, oral, Daily atorvastatin, 80 mg, oral, Nightly carvediloL, 3.125 mg, oral, BID with meals (bkfst, dinner) cefepime, 2,000 mg, intravenous, Q12H LEAH clopidogreL, 75 mg, oral, Daily dapagliflozin, 10 mg, oral, Daily dexAMETHasone, 6 mg, intravenous, Daily docusate sodium, 100 mg, oral, BID enoxaparin, 40 mg, subcutaneous, Daily-2100 insulin lispro, 0-10 Units, subcutaneous, TID with meals insulin lispro, 0-5 Units, subcutaneous, Nightly lidocaine, 1 patch, transdermal, Daily lisinopriL, 5 mg, oral, Daily midodrine, 15 mg, oral, TID pantoprazole DR, 40 mg, oral, Daily QUEtiapine, 50 mg, oral, Nightly sodium bicarbonate, 650 mg, oral, BID sodium chloride 0.9%, 0.5-20 mL, intra-catheter, Q8H LEAH tamsulosin, 0.4 mg, oral, Daily with dinner vancomycin, 1,500 mg, intravenous, Q12H Continuous Infusions:dextrose 10%, 10 mL/hr, Last Rate: 10 mL/hr (05/28/21 1127) PRN Meds:.??? acetaminophen ? ? al & mag hydroxide arxcgjprwbv-kfptdvbackywknz-cczxnvibx-nystatin ??? albuterol ??? dextrose OR dextrose ??? dextrose OR [DISCONTINUED] dextrose ??? glucagon ??? guaiFENesin ??? ondansetron ??? polyethylene glycol ROS Above review of system reviewed on 05/28/2021 Vitals: Vitals: 05/28/21 0400 05/28/21 0414 05/28/21 0500 05/28/21 0600 BP: 107/73 101/66 117/83 Pulse: 91 75 66 Resp: 23 20 19 Temp: TempSrc: SpO2: 91% Weight: Height: Temp (24hrs), Av.4 ??C (97.5 ??F), Min:36.1 ??C (96.9 ??F), Max:36.7 ??C (98 ??F) FiO2 (%): [35 %-60 %] 60 % Intake/Output Summary (Last 24 hours) at 05/28/2021 1325 Last data filed at 05/28/2021 0200 Gross per 24 hour Intake 620 ml Output 1495 ml Net -875 ml Physical Exam Constitutional: General: He is not in acute distress. Appearance: He is well-developed. HENT: Head: Normocephalic and atraumatic. Eyes: General: No scleral icterus. Conjunctiva/sclera: Conjunctivae normal. Neck: Thyroid: No thyromegaly. Cardiovascular: Rate and Rhythm: Normal rate and regular rhythm. Heart sounds: No murmur heard. Pulmonary: Effort: Pulmonary effort is normal. No respiratory distress. Breath sounds: Normal breath sounds. No wheezing, rhonchi or rales. Chest: Comments: Sternotomy incision Abdominal: General: Bowel sounds are normal. Palpations: Abdomen is soft. Skin: General: Skin is warm and dry. Neurological: Mental Status: He is alert. Lab/Radiology/Diagnostic Review: Labs: Recent Labs Lab Units 05/28/21 0247 05/27/21 0640 05/26/21 0623 WBC K/cumm 12.1* 13.5* 14.0* HEMOGLOBIN g/dL 11.2* 9.9* 10.7* HEMATOCRIT % 34.3* 29.8* 32.6* PLATELETS K/cumm 468* 519* 535* Recent Labs Lab Units 05/28/21 1153 05/28/21 0949 05/28/21 0642 05/28/21 0440 05/28/21 0247 05/27/21 0647 05/27/21 0640 05/26/21 0632 05/26/21 0623 SODIUM mmol/L -- -- -- -- 135 -- 130* -- 136 POTASSIUM PLASMA mmol/L -- -- -- -- 3.7 -- 4.6 -- 4.4 CHLORIDE mmol/L -- -- -- -- 107 -- 100 -- 101 CO2 mmol/L -- -- -- -- 17* -- 20* -- 22 ANIONGAP mmol/L -- -- -- -- 11 -- 10 -- 13 GLUCOSE mg/dL -- -- -- -- 68* < > 183 < > 77 POC GLUCOSE MONITOR mg/dL 131 117 121 < > -- < > -- < > -- BUN SERUM mg/dL -- -- -- -- 19 -- 22 -- 22 CREATININE mg/dL -- -- -- -- 0.40* -- 0.42* -- 0.48* CALCIUM mg/dL -- -- -- -- 7.7* -- 8.9 -- 9.1 < > = values in this interval not displayed. Recent Labs Lab Units 05/25/21 0951 PH ART 7.47* PCO2 ART mmHg 32* PO2 ART mmHg 72* HCO3 ART (CALC) mmol/L 24 BASE EXC ART mmol/L 0 O2 SAT ART (JOELLE) % 95 Imaging: CT chest 05/19/21: b gg inf, severe emphysema CT chest 05/25/21: b inf, emphysema, no PE Other diagnostic tests: I have personally reviewed above laboratory findings, chest imaging, and diagnostic tests 05/28/2021 Assessment and Plan: Acute respiratory failure Acute MT w CAD s/p CABG x 4 on 05/04/21, past hx multiple stents Cardiogenic shock, resolved Cardiomyopathy EF 40% V fib COPD: severe emphysematous changes on CT Anemia Hematuria s/p cystoscopy/fulguration COVID 19, diagnosed 05/19/21, resp status began worsening 05/15/21 Possible bacterial pneumonia, treated ?? Recs: Oxygen support, adjust as needed Dexamethasone started 05/19 On baricitinib On cefepime and vancomycin Incentive spirometry Scheduled albuterol Scheduled bronchodilators Increase activity as tolerated Chart reviewed F FORESTER * Lc Simons MD - 05/28/2021 12:40 PM CST Hospitalist Progress Note Name: Deepak Alvarado Admission Date: 05/01/2021 Today's Date: 05/28/2021 Subjective: Pt seen and examined Clinical course: Overall pt condition has improved. Still on 4L per NC today 05/16: feels ok today, on 5L per NC 05/17: transferred to ICU for worsening respiratory distress requiring more O2 05/20: remains in the ICU, on Optiflow today 05/21: about the same today, Optiflow 05/22: still on Optiflow, back on Insulin gtt 05/23: no major changes , still on Optiflow 05/24: remains on Optiflow 05/25: about the same 05/26: optiflow, back on antibiotics 05/27: Patient remains on OptiFlow. No events overnight. Patient appears comfortable 05/28: Patient has no complaints other than just wanting to be out of here. Appears comfortable. Objective: Vitals: 05/28/21 0400 05/28/21 0414 05/28/21 0500 05/28/21 0600 BP: 107/73 101/66 117/83 Pulse: 91 75 66 Resp: 23 20 19 Temp: TempSrc: SpO2: 91% Weight: Height: Wt Readings from Last 3 Encounters: 05/23/21 79.5 kg (175 lb 4.3 oz) 08/27/13 114.3 kg (252 lb) 10/19/12 111.6 kg (246 lb) I/O last 3 completed shifts: In: 2185 [P.O.:1445; I.V.:740] Out: 2740 [Urine:2740] No intake/output data recorded. Scheduled Meds Current Facility-Administered Medications Medication Dose Route Frequency Provider Last Rate Last Admin ??? acetaminophen (TYLENOL) tablet 650 mg 650 mg oral Q6H PRN Eleonora Duarte NP 650 mg at 05/21/21 1545 ? ? al & mag hydroxide kfhmdufvyxo-ipxsyvgiofvalma-jttyxlfth-nystatin (MAGIC MOUTHWASH) suspension 1-1-1-1 20 mL swish & spit Q4H PRN Elena Kelly NP ??? albuterol 2.5 mg /3 mL (0.083 %) nebulizer solution 2.5 mg 2.5 mg nebulization Q4H PRN (RT) Ralf Tomlinson MD 2.5 mg at 05/17/21 0224 ??? albuterol HFA (PROVENTIL HFA,VENTOLIN HFA,PROAIR HFA) 90 mcg/actuation inhaler 8 puff 8 puff inhalation Q4H While awake (RT) Ralf Tomlinson MD 8 puff at 05/28/21 1158 ??? aspirin enteric coated tablet 81 mg 81 mg oral Daily Varsha Crowder NP 81 mg at 05/28/21 1004 ??? atorvastatin (LIPITOR) tablet 80 mg 80 mg oral Nightly Rhina Granados MD 80 mg at 05/27/21 2220 ??? carvediloL (COREG) tablet 3.125 mg 3.125 mg oral BID with meals (bkfst, dinner) Nalini Clayton MD ??? cefepime (MAXIPIME) 2,000 mg in sodium chloride 0.9% 100 mL IVPB 2,000 mg intravenous Q12H Rosy Healy NP 200 mL/hr at 05/28/21 1042 2,000 mg at 05/28/21 1042 ??? clopidogreL (PLAVIX) tablet 75 mg 75 mg oral Daily Alejandro Gonzalez NP 75 mg at 154 ??? dapagliflozin (FARXIGA) tablet 10 mg 10 mg oral Daily Stephen Melgar MD 10 mg at 05/28/21 1005 ??? dexAMETHasone (DECADRON) 4 mg/mL injection 6 mg 6 mg intravenous Daily Silviano Huddleston NP 6 mg at 05/28/21 1017 ??? dextrose oral liquid liquid 15 g 15 g oral Q15 Min PRN Silviano Huddleston NP Or ??? dextrose (D10W) 10% bolus 250 mL 250 mL intravenous Q15 Min PRN Silviano Huddleston NP ??? dextrose 10% infusion 10 mL/hr intravenous Continuous Alejandro Gonzalez NP 10 mL/hr at 05/28/21 1127 10 mL/hr at 05/28/21 1127 ??? dextrose oral liquid liquid 15 g 15 g oral Q15 Min PRN Anibal Lara MD ??? docusate sodium (COLACE) capsule 100 mg 100 mg oral BID Rhina Granados MD 100 mg at 05/28/21 1005 ??? enoxaparin (LOVENOX) syringe 40 mg 40 mg subcutaneous Daily-2100 Rhina Granados MD 40 mg at107/28/202220 ??? glucagon injection 1 mg 1 mg intramuscular Q30 Min PRN Silviano Huddleston NP ??? guaiFENesin (ROBITUSSIN) 20 mg/mL oral liquid 200 mg 200 mg oral QID PRN Caleb Toth PA 200 mg at 05/25/21 2353 ??? insulin lispro (HumaLOG, ADMELOG) 100 unit/mL injection 0-10 Units 0-10 Units subcutaneous TID with meals Silviano Huddleston NP 2 Units at 05/27/21 1830 ??? insulin lispro (HumaLOG, ADMELOG) 100 unit/mL injection 0-5 Units 0-5 Units subcutaneous Nightly Silviano Huddleston NP 1 Units at 05/25/21 2103 ??? lidocaine (LIDODERM) 5 % patch 1 patch 1 patch transdermal Daily Rosy Muñoz NPMedication Removed at 05/27/21 222 ??? lisinopriL (PRINIVIL,ZESTRIL) tablet 5 mg 5 mg oral Daily Nalini Clayton MD 5 mg at 05/28/21 1100 ??? midodrine (PROAMATINE) tablet 15 mg 15 mg oral TID Silviano Huddleston NP 15 mg at 05/28/21 1008 ??? ondansetron (ZOFRAN) injection 4 mg 4 mg intravenous Q6H PRN Rhina Granados MD ??? pantoprazole DR (PROTONIX) extended release tablet 40 mg 40 mg oral Daily Rhina Granados MD40 mg at 05/28/21 1008 ??? polyethylene glycol (MIRALAX) packet 17 g 17 g oral Daily PRN Rhina Granados MD 17 g at 05/27/21 0902 ??? QUEtiapine (SEROquel) tablet 50 mg 50 mg oral Nightly Silviano Huddleston NP 50 mg at 219 ??? sodium bicarbonate tablet 650 mg 650 mg oral BID Yves Weinberg MD 650 mg at 05/28/21 1016 ??? sodium chloride 0.9% flush 0.5-20 mL 0.5-20 mL intra-catheter Q8H [facility] Rhina Granados MD 20 mL at 05/28/21 0745 ??? tamsulosin (FLOMAX) extended release capsule 0.4 mg 0.4 mg oral Daily with dinner Elena Kelly NP 0.4 mg at 05/27/21 1743 ??? vancomycin 1500 mg/250 mL in sodium chloride 0.9% (premix) 1,500 mg 1,500 mg intravenous Q12H Rosy Muñoz NP 1,500 mg at 05/28/21 0436 dextrose 10%, 10 mL/hr, Last Rate: 10 mL/hr (05/28/21 1127) ??? acetaminophen ? ? al & mag hydroxide aaoencgahvp-mafayydqxhmjuue-cftfechgg-nystatin ??? albuterol ??? dextrose OR dextrose ??? dextrose OR [DISCONTINUED] dextrose ??? glucagon ??? guaiFENesin ??? ondansetron ??? polyethylene glycol Physical Exam: General: alert, cooperative, no distress, appears stated age HEENT: Head:normacephalic, Eyes: Perrla, EOMI bilaterally, nasal and oral mucosal pink and moist Heart: normal rate, regular rhythm, normal S1, S2, no murmurs, rubs, clicks or gallops Lungs: clear to auscultation, no wheezes or rales and unlabored breathing Abdomen: soft, nontender, nondistended, no masses or organomegaly Extremities: peripheral pulses normal, no pedal edema, no clubbing or cyanosis Neuro: alert, oriented x 3, no defects noted in general exam. Lab Data Laboratory review: Chemistry CMP: Lab Results Component Value Date BUNSER 19 05/28/2021 CALCIUM 7.7 (L) 05/28/2021 CO2 17 (L) 05/28/2021 CHLORIDE 107 05/28/2021 CREATININE 0.40 (L) 05/28/2021 GLUCOSE 131 05/28/2021 GLUCOSE 68 (L) 05/28/2021 POTASSIUM 3.7 05/28/2021 SODIUM 135 05/28/2021 , CBC: Lab Results Component Value Date WBC 12.1 (H) 05/28/2021 RBC 3.74 (L) 05/28/2021 HGB 11.2 (L) 05/28/2021 HCT 34.3 (L) 05/28/2021 MCV 91.7 05/28/2021 MCH 29.9 05/28/2021 MCHC 32.7 05/28/2021 RDWCV 13.3 05/28/2021 RDWSD 43.7 05/28/2021 MPV 11.0 05/28/2021 NRBCABS 0.00 05/28/2021 , Coags: No results found for: PT, PTT, APTT, FFN, FIBRINOGEN, INR, ACTIVATEDCL, Lipids: No results found for: CHOL, CHLPL, HDL, LDLCALC, TRIG, CHOLHDL, Cardiac Enzymes: No results found for: CKTOTAL, CKMB, CKMBINDEX, TROPONINT and POC Glucose: Lab Results Component Value Date GLUCOSE 131 05/28/2021 GLUCOSE 68 (L) 05/28/2021 Home Medications have been reviewed and updated on pt's list Assessment and Plan Acute resp failure - self ext 05/05/21 -Lung infiltrates - pulm vascular congestion/CHF, and suspected pneumonia - completed Zosyn -COVID19 (+) 05/19 -started on Decadron and Remdesivir 05/19 -PRN IV Lasix -pt cont on Optiflow - wean as tolerated -pulmonology follows -per cards added Farxiga, Aldactone, and Corlanor 05/23 -continue Cefepime and Vancomycin Near syncope/Syncope episode, probable vaso vagal, stable at this time-monitor ?? Acute anterior STEMI with CAD , s/p PCI to LAD -s/p CABG x 4 05/04 given re thrombosis of existing stents -s/p IABP, removed 05/06 - ASA, ??statins, off Plavix due to hematuria, low-dose BB, monitor blood pressure ?? Post CABG cardiogenic shock, hypotensive again - s/p??Dobutamine gtt and Levophed -now on Midodrine ?? Ventricular fibrillation - briefly on 05/03 - treated with Amiodarone and Dobutamine gtt, off them now ?? Gross Hematuria ?- in a pt with hx of ??cystoscopy, -clot evacuation and transurethral resection of bladder tumor at [facility] -s/p 20??German three way catheter -holding Plavix -cysto 05/14 with clot evacuation and fulguration ? Type 2 diabetes.??- SSI proocol ?? Acute blood loss anemia ; -s/p PRBC transfusions in ICU - monitor HH ?? Mild hyponatremia, monitor ?? Hx of ??Tobacco use. ?? DVT prophylaxis :Lovenox Pt will need continued inpatient management for the above medical issues. Code status: full Lc Simons MD Team [facility] Hospitalist 05/28/2021 12:40 PM F FORESTER * Varsha Lee NP - 05/28/2021 11:18 AM CST Cardiothoracic Surgery Note 24 days postop Urgent Coronary Artery Bypass Graft x4 Patient chart reviewed. No acute issues per staffing administrator. CTS will continue to follow patient on an as needed basis. Sternal incision is healed and sternum stable to cough. Please let CTS know if you have any questions. LTAC planning in process. Okay for discharge per CTS. Follow up appointment scheduled for patient. Varsha Lee NP Cardiothoracic Surgery [place] [facility]: [phone] [facility] Cosigned by Rhina Granados MD at 05/29/2021 1:44 PM STAFF FORESTER F FORESTER F FORESTER * Alejandro Gonzalez NP - 05/28/2021 11:04 AM CST [facility] Critical Care Medicine Daily Progress Subjective Patient is a 60 y.o. y/o male admitted on 05/01/2021 5:20 PM with the following indication(s) for ICU care - s/p CABG, now with COVID 19 viral pneumonia Interval History: - patient had mild hematuria overnight in the setting of pulling at his Osorio + Plavix had been restarted, but Hgb rising >> Plavix restarted - hypoglycemic to 68 overnight (asymptomatic) >>> stopped scheduled Lispro & NPH. Continued SSI & D10 & will monitor BG for now - if BG continues to be difficult to control, will consider Endo c/s - CXR w/ improvement in left-sided infiltrates - Dexamethasone to stop today - plan for an empiric 7 day course of antibiotics for suspected bacterial pneumonia - one episode of desaturation to the high 80's when getting OOB & increased oxygen requirement >>> now coming back down HPI 60 year old male with copd, obesity, pvd, htn, hld, dm2 & CAD s/p multiple LAD stents who p/w anterior STEMI after bladder procedure on 04/29. [facility] where they found in-stent thrombosis and an angioplasty was performed but stent could not be placed. A balloon pump was placed and the patient was transferred to the CVU. CT-surgery was consulted for CABG. The patie nt underwent a 4 vessel cabg on 05/04 w/ Dr. Granados (MAE->LAD, Saph vein->diag & obtuse, Saph->PDA). He developed rebleeding from his bladder tumor and this was adressed by urology. Heself extubated the next day after his CABG. His osorio was removed yesterday and he is currently post op day 11 from the CABG. He has been getting diuresed on the floor but has unfortunately had increasing oxygen requirement for the last 24 hours despite diuresis. He is currently on a non-rebreatherand being transferred to the ICU.?? Hospital Course 04/29 Cystoscopy at [facility] 04/30 STEMI, [facility] -> instent thrombosis, angioplasty, IABP, transfer to [facility] 05/04/21: Increased blood clot from osorio and obstruction with pain.?? 05/05/21: Brief asystole o/n w turning. Stable after. Self extubated in AM.?? 05/06/21: NAEON. Maintained on CPAP and optiflow.?? 05/07/21: NAEON. Up in chair at time of exam. TTF 05/10 near syncopal episode 05/14 cystoscopy with clot removal and fulguration of bleeding 05/17 readmit to ICU with pulmonary edema, lasix drip 05/18 Nasal cannula, on/off pressors, Negative VQ, ACTH Stim unremarkable 05/19 COVID positive, 15 L/NC, Remdesivir, dexamethasone 05/21 coude catheter placed, remains on optiflow, updated 05/22 increase seroquel, on optiflow 40L 75% 05/23 HF meds started, Lasix 40mg 05/24 FiO2 at 60% 05/25 PE protocol 05/26 pneumonia PCR ++++, start Vancomycin and Cefepime 05/27: ID c/s, weaning Optiflow, Vanc/Cefe 05/28: completed dexamethasone, stopped scheduled lispro & NPH Scheduled Medications: albuterol HFA, 8 puff, inhalation, Q4H While awake (RT) aspirin, 81 mg, oral, Daily atorvastatin, 80 mg, oral, Nightly carvediloL, 3.125 mg, oral, BID with meals (bkfst, dinner) cefepime, 2,000 mg, intravenous, Q12H LEAH clopidogreL, 75 mg, oral, Daily dapagliflozin, 10 mg, oral, Daily dexAMETHasone, 6 mg, intravenous, Daily docusate sodium, 100 mg, oral, BID enoxaparin, 40 mg, subcutaneous, Daily-2100 insulin lispro, 0-10 Units, subcutaneous, TID with meals insulin lispro, 0-5 Units, subcutaneous, Nightly insulin lispro, 0.083 Units/kg, subcutaneous, TID with meals insulin NPH, 4 Units, subcutaneous, Q6H LEAH lidocaine, 1 patch, transdermal, Daily lisinopriL, 5 mg, oral, Daily magnesium sulfate, 4 g, intravenous, Once midodrine, 15 mg, oral, TID pantoprazole DR, 40 mg, oral, Daily QUEtiapine, 50 mg, oral, Nightly sodium bicarbonate, 650 mg, oral, BID sodium chloride 0.9%, 0.5-20 mL, intra-catheter, Q8H LEAH tamsulosin, 0.4 mg, oral, Daily with dinner vancomycin, 1,500 mg, intravenous, Q12H Continuous Medications: - n/a PRN Medications: ??? acetaminophen ? ? al & mag hydroxide fajhjgljeir-uulcxhrkhuhwmwx-lduagnjgv-nystatin ??? albuterol ??? dextrose OR dextrose ??? dextrose OR [DISCONTINUED] dextrose ??? glucagon ??? guaiFENesin ??? ondansetron ??? polyethylene glycol Objective Vitals: Most Recent: Vitals: 05/28/21 0600 BP: 117/83 Pulse: 66 Resp: 19 Temp: SpO2: 24hr Min/Max: Temp Min: 36.1 ??C (96.9 ??F) Max: 36.8 ??C (98.2 ??F) Pulse Min: 66 Max: 95 BP Min: 94/61 Max: 117/83 Resp Min: 16 Max: 29 SpO2 Min: 91 % Max: 96 % LDA: PICC Double Lumen 05/18/21 Non-tunneled Power #1 Red, #2 Purple, Right Upper arm;Brachial (Active) Placement Date/Time: 05/18/21 1200 Catheter Time Out Checklist Completed: Yes Hand Hygiene Performed: Yes Site Prep: Alcohol;Betadine;Chlorhexidine Site Prep Agent has Completely Dried Before Insertion: Yes All 5 Sterile Barriers or Appropriate ... Number of days: 7 Urethral Catheter Coude (Active) Placement Date/Time: 05/21/21 1103 Inserted by: vanessa Catheter Type: Coude Tube Size (Fr.): 18 Fr Catheter Balloon Size: 5 mL Urine Returned: Yes Number of days: 4 Vent settings: FiO2 (%): [35 %-40 %] 40 % Hemodynamic parameters for last 24 hours: - hemodynamically unsupported I/O: Date 05/27/21 0700 - 05/28/21 0659 05/28/21 07 - 05/29/21 0659 Shift 2683-1168 6866-6052 24 Hour Total 9965-0172 1092-1679 24 Hour Total INTAKE P.O. 1445 1445 I.V.(mL/kg) 425(5.3) 425(5.3) Shift Total(mL/kg) 1870(23.5) 1870(23.5) OUTPUT Urine(mL/kg/hr) 1470(1.5) 750(0.8) 2220(1.2) Shift Total(mL/kg) 1470(18.5) 750(9.4) 2220(27.9) NET 400 -750 -350 Weight (kg) 79.5 79.5 79.5 79.5 79.5 79.5 Physical Exam: General: ill appearing patient, frail Neurologic: awake, following commands, regarding examiner, interactive HEENT: PERRL, neck supple Cardiovascular: S1, S2; RRR Pulmonary: bilateral slightly coarse, respirations labored at times, Optiflow Abdomen: round, hypoactive bowel sounds, soft, NT/ND Extremities: warm, dry, +pulses, no edema Drains: Osorio catheter Skin: without rashes or lesions Lab/Radiology/Diagnostic Review: Laboratory review: Lab results in the last 24 hours: Recent Results (from the past 24 hour(s)) POCT glucose Collection Time: 05/27/21 12:19 PM Result Value Ref Range Glucose, POC 164 70 - 199 mg/dL POCT glucose Collection Time: 05/27/21 5:56 PM Result Value Ref Range Glucose, POC 186 70 - 199 mg/dL POCT glucose Collection Time: 05/27/21 10:17 PM Result Value Ref Range Glucose, POC 83 70 - 199 mg/dL POCT glucose Collection Time: 05/28/21 1:22 AM Result Value Ref Range Glucose, POC 109 70 - 199 mg/dL Vancomycin level trough Draw trough 30 minutes prior to dose. Collection Time: 05/28/21 2:47 AM Result Value Ref Range Vancomycin trough 9.3 (L) 10.0 - 20.0 mcg/mL Phosphorus Collection Time: 05/28/21 2:47 AM Result Value Ref Range Phosphorus, pl 2.7 2.3 - 4.5 mg/dL Magnesium Collection Time: 05/28/21 2:47 AM Result Value Ref Range Magnesium 1.5 1.4 - 2.5 mg/dL CBC without differential Collection Time: 05/28/21 2:47 AM Result Value Ref Range WBC 12.1 (H) 3.8 - 9.9 K/cumm Hgb 11.2 (L) 13.0 - 17.5 g/dL Hct 34.3 (L) 38.9 - 50.3 % Plt 468 (H) 150 - 400 K/cumm MPV 11.0 9.1 - 12.3 fL RBC 3.74 (L) 4.30 - 5.80 M/cumm MCV 91.7 81.3 - 96.4 fL MCH 29.9 27.1 - 33.3 pg MCHC 32.7 32.3 - 35.7 g/dL RDW CV 13.3 11.1 - 14.9 % RDW SD 43.7 35.7 - 48.1 fL NRBC abs 0.00 0.00 - 0.01 K/cumm Basic metabolic panel Collection Time: 05/28/21 2:47 AM Result Value Ref Range Sodium 135 135 - 145 mmol/L Potassium, pl 3.7 3.3 - 4.9 mmol/L Chloride 107 97 - 110 mmol/L CO2 17 (L) 22 - 32 mmol/L Anion gap 11 2 - 15 mmol/L BUN 19 8 - 25 mg/dL Creatinine 0.40 (L) 0.80 - 1.30 mg/dL Glucose 68 (L) 70 - 199 mg/dL Calcium 7.7 (L) 8.5 - 10.3 mg/dL eGFR Collection Time: 05/28/21 2:47 AM Result Value Ref Range eGFR 130 mL/min/1.73 m2 POCT glucose Collection Time: 05/28/21 4:40 AM Result Value Ref Range Glucose, POC 116 70 - 199 mg/dL POCT glucose Collection Time: 05/28/21 6:42 AM Result Value Ref Range Glucose, POC 121 70 - 199 mg/dL POCT glucose Collection Time: 05/28/21 9:49 AM Result Value Ref Range Glucose, POC 117 70 - 199 mg/dL Assessment/Plan NEURO: -encourage day/night cycle CV: #Acute Anterior STEMI with CAD s/p PCI to the LAD #HFrEF -s/p CABG x 4 with CTS, Dr. 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 - off both Amiodarone & dobutmaine - supportive care - keep electrolytes optimized PULM: #Acute Hypoxic Respiratory Failure: 2/2 Confirmed Positive COVID-19 viral pneumonia, worsened on 05/26 Pulmonary Support: O2 Therapy: Supplemental oxygen O2 Del Method: High humidity nasal cannula i.e.Optiflow, Airvo FiO2 (%): 40 % O2 Flow Rate (L/min): 45 L/min FiO2 (%): 40 % - requiring Optiflow therapy with intermittent BiPAP 2/2 worsened respiratory distress - encourage aggressive pulmonary toilet - goal SPO2 > 88% - CT Chest PE protocol (05/25) = negative for PE, but with changes consistent with COVID 19 - COVID medical management - continue antibiotics for empiric 7 day course Consults: Cuff Matcher & Infectious Disease Endo: #Hyperglycemia, labile blood glucose #Hypoglycemia - hypoglycemic overnight to 68 (asymptomatic) & D10 restarted - frequent glucose checks, NPH/SSI - HgbA1c > 13 this admission - will continue D10, stop NPH & scheduled lispro & continue SSI Consults: Endocrinology (last saw the patient on 05/18 >> if BG continues to be labile, will re-consult) GI: -Nutrition plan: Mechanical Soft, Consistent Carb + supplements RENAL: Lab Results Component Value Date CREATININE 0.40 (L) 05/28/2021 #History of gross hematuria s/p cystoscopy with clot evacuation and transurethral resection of bladder tumor at [place] - Plavix was stopped again overnight for only mild hematuria, but in the setting of the patient pulling on the Osorio & H/H actually increased >>> restarted Plavix - Cystoscopy 05/14/21 with clot evacuation and fulguration for reported tumor - 05/21/21 Coude placed, keep Osorio catheter today 2/2 worsening hypoxia with exertion Date 05/27/21 0700 - 05/28/21 0659 05/28/21 0700 - 05/29/21 0659 Shift 2436-5674 2378-6079 24 Hour Total 0876-5203 9836-1662 24 Hour Total INTAKE P.O. 1445 1445 I.V.(mL/kg) 425(5.3) 425(5.3) Shift Total(mL/kg) 1870(23.5) 1870(23.5) OUTPUT Urine(mL/kg/hr) 1470(1.5) 750(0.8) 2220(1.2) Shift Total(mL/kg) 1470(18.5) 750(9.4) 2220(27.9) NET 400 -750 -350 Weight (kg) 79.5 79.5 79.5 79.5 79.5 79.5 HEME: Lab Results Component Value Date HGB 11.2 (L) 05/28/2021 #ABLA 2/2 surgical procedure, critical illness - no s/s active bleeding - no indication for transfusion - transfuse as indicated DVT prophylaxis: Lovenox ID: Lab Results Component Value Date WBC 12.1 (H) 05/28/2021 #Confirmed Positive COVID-19 pneumonia -Decadron x 10 days (completes today) -Remdesivir course completed -spoke with CTS re: baricitinib, discontinued on 12/24 2 pneumonia PCR +++ -trend WBC and fever curve -supportive COVID care #MRSA pneumonia, Moraxella, H Influenza #Leukocytosis - Vancomycin and Cefepime started 05/26 & will plan for an empiric 7 day course - re-consult ID team (left message for Dr Vance today on [employer]) - follow sensitivities - WBC trending down Consults: Infectious Disease Culture Results: No flowsheet data found. Lab Results Component Value Date MICROBIOLOGY Preliminary Report: No growth to date. 05/26/2021 MICROBIOLOGY Preliminary Report: No growth to date. 05/26/2021 MICROBIOLOGY (.) 05/26/2021 Preliminary Report: Growth indicates upper respiratory tirso. MICROBIOLOGY (.) 05/05/2021 Final Report: Greater than or equal to 100,000 colonies/ml of Yeast Britta pneumonia is very rare and requires a histopathological diagnosis. The recovery of these organisms in routine culture, in most cases, only represents overgrowth of the organism secondary to antimicrobial therapy. Please contact the microbiology laboratory at [phone] if identification or susceptibility testing is clinically indicated. Access: Right brachial PICC (05/18) PPx: SCD, Lovenox Dispo planning for LTACH Assessment and plan has been reviewed with attending, Dr. Jaja Gonzalez NP [phone], [place] [facility] Department of Anesthesiology Division of Critical Care Medicine Cosigned by Dominique Wilkinson MD at 05/28/2021 2:18 PM STAFF FORESTER F FORESTER F FORESTER Associated attestation - Dominique Wilkinson MD - 05/28/2021 2:18 PM STAFF FORESTER I have seen and examined the patient on 05/28/21. I agree with or have edited the findings and plan of care as documented in the [place] note. G: Appears to be improving. Older male sitting up in bed N: Awake, remains appropriately conversant CV: RRR, no JVD. Well healed sternum Resp: Coarse lungs bilaterally, requiring Optiflow support, less work of breathing GI: Abd soft, nontender, nondistended : Osorio with pink tinged urine MSK: mild LE ext edema Int: no rashes Continue plavix. No major concerns for active bleeding. Blood glucose continues to go low, will adjust insulin today. Dominique Wilkinson MD Section of Acute and Critical Care Surgery Department of Surgery [facility] * Nalini Clayton MD - 05/28/2021 10:06 AM CST [facility] - Cardiology [facility] Progress Note Admit Date: 05/01/2021 5:20 PM @HDAYS@ PCP: Unknown, Notinfile Patient seen and examined Chart , telemtry reviewed Symptoms Patient denies chest pain, palpitations, sweating or syncope.Dyspnea persists on optiflo,eating breakfast Data Vitals: 05/28/21 0400 05/28/21 0414 05/28/21 0500 05/28/21 0600 BP: 107/73 101/66 117/83 Pulse: 91 75 66 Resp: 23 20 19 Temp: TempSrc: SpO2: 91% Weight: Height: Intake/Output Summary (Last 24 hours) at 05/28/2021 1007 Last data filed at 05/28/2021 0200 Gross per 24 hour Intake 1370 ml Output 1720 ml Net -350 ml Lab Results Component Value Date WBC 12.1 (H) 05/28/2021 WBC 13.5 (H) 05/27/2021 WBC 14.0 (H) 05/26/2021 HGB 11.2 (L) 05/28/2021 HGB 9.9 (L) 05/27/2021 HGB 10.7 (L) 05/26/2021 HCT 34.3 (L) 05/28/2021 HCT 29.8 (L) 05/27/2021 HCT 32.6 (L) 05/26/2021 Lab Results Component Value Date SODIUM 135 05/28/2021 SODIUM 130 (L) 05/27/2021 SODIUM 136 05/26/2021 POTASSIUM 3.7 05/28/2021 POTASSIUM 4.6 05/27/2021 POTASSIUM 4.4 05/26/2021 CHLORIDE 107 05/28/2021 CHLORIDE 100 05/27/2021 CHLORIDE 101 05/26/2021 CO2 17 (L) 05/28/2021 CO2 20 (L) 05/27/2021 CO2 22 05/26/2021 CREATININE 0.40 (L) 05/28/2021 CREATININE 0.42 (L) 05/27/2021 CREATININE 0.48 (L) 05/26/2021 GLUCOSE 117 05/28/2021 GLUCOSE 121 05/28/2021 GLUCOSE 116 05/28/2021 GLUCOSE 68 (L) 05/28/2021 GLUCOSE 183 05/27/2021 GLUCOSE 77 05/26/2021 CALCIUM 7.7 (L) 05/28/2021 CALCIUM 8.9 05/27/2021 CALCIUM 9.1 05/26/2021 No results found for: PTT No results found for: PT No results found for: INR No results found for: BNP No components found for: TROPONIN No results found for: CHOL, TRIG, HDL, LDLCALC No results found for: ALBUMIN, ALKPHOS, ALT, AST No components found for: MAGMGDL No results found for: TSH No results found for: T3FREE No results found for: B2TTUVP Pain Assessment: No/denies pain Pain Score: 0 - No pain Meds MEDICATIONS FOR CURRENT ENCOUNTER: SCHEDULED MEDICATIONS: Scheduled Medications Medication Dose Route Frequency ??? albuterol HFA (PROVENTIL HFA,VENTOLIN HFA,PROAIR HFA) 90 mcg/actuation inhaler 8 puff 8 puff inhalation Q4H While awake (RT) ??? aspirin enteric coated tablet 81 mg 81 mg oral Daily ??? atorvastatin (LIPITOR) tablet 80 mg 80 mg oral Nightly ??? cefepime (MAXIPIME) 2,000 mg in sodium chloride 0.9% 100 mL IVPB 2,000 mg intravenous Q12H LEAH ??? dapagliflozin (FARXIGA) tablet 10 mg 10 mg oral Daily ??? dexAMETHasone (DECADRON) 4 mg/mL injection 6 mg 6 mg intravenous Daily ??? docusate sodium (COLACE) capsule 100 mg 100 mg oral BID ??? enoxaparin (LOVENOX) syringe 40 mg 40 mg subcutaneous Daily-2100 ??? insulin lispro (HumaLOG, ADMELOG) 100 unit/mL injection 0-10 Units 0-10 Units subcutaneous TID with meals ??? insulin lispro (HumaLOG, ADMELOG) 100 unit/mL injection 0-5 Units 0-5 Units subcutaneous Nightly ??? insulin lispro (HumaLOG, ADMELOG) 100 unit/mL injection 7 Units 0.083 Units/kg subcutaneous TIDwith meals ??? insulin NPH (HumuLIN N, NovoLIN N) 100 unit/mL injection 6 Units 6 Units subcutaneous Q6H LEAH ??? ivabradine (CORLANOR) tablet 5 mg 5 mg oral BID with meals (bkfst, dinner) ??? lidocaine (LIDODERM) 5 % patch 1 patch 1 patch transdermal Daily ??? magnesium sulfate 4 g/100 mL in water (premix) 4 g 4 g intravenous Once ??? midodrine (PROAMATINE) tablet 15 mg 15 mg oral TID ??? pantoprazole DR (PROTONIX) extended release tablet 40 mg 40 mg oral Daily ??? QUEtiapine (SEROquel) tablet 50 mg 50 mg oral Nightly ??? sodium bicarbonate tablet 650 mg 650 mg oral BID ??? sodium chloride 0.9% flush 0.5-20 mL 0.5-20 mL intra-catheter Q8H LEAH ??? sodium phosphate - potassium phosphate (K-PHOS NEUTRAL) tablet 500 mg 500 mg feeding tube Once ??? tamsulosin (FLOMAX) extended release capsule 0.4 mg 0.4 mg oral Daily with dinner ??? vancomycin 1500 mg/250 mL in sodium chloride 0.9% (premix) 1,500 mg 1,500 mg intravenous Q12H ?? CONTINUOUS MEDICATIONS: Continuous Medications Medication Dose Last Rate ??? dextrose 10% infusion 10 mL/hr 10 mL/hr (05/28/21 0744) ? PRN MEDICATIONS: PRN Medications Medication Dose Route Frequency Last Admin ??? acetaminophen (TYLENOL) tablet 650 mg 650 mg oral Q6H PRN 650 mg at 05/21/21 1545 ? ? al & mag hydroxide ijmbppprxjt-iaqbzauvnkikfml-rpcmgeknu-nystatin (MAGIC MOUTHWASH) suspension 1-1-1-1 20 mL swish & spit Q4H PRN ??? albuterol 2.5 mg /3 mL (0.083 %) nebulizer solution 2.5 mg 2.5 mg nebulization Q4H PRN (RT) 2.5mg at 05/17/21 0224 ??? dextrose oral liquid liquid 15 g 15 g oral Q15 Min PRN Or ??? dextrose (D10W) 10% bolus 250 mL 250 mL intravenous Q15 Min PRN ??? dextrose oral liquid liquid 15 g 15 g oral Q15 Min PRN ??? glucagon injection 1 mg 1 mg intramuscular Q30 Min PRN ??? guaiFENesin (ROBITUSSIN) 20 mg/mL oral liquid 200 mg 200 mg oral QID PRN 200 mg at 05/25/21 8493 ??? ondansetron (ZOFRAN) injection 4 mg 4 mg intravenous Q6H PRN ??? polyethylene glycol (MIRALAX) packet 17 g 17 g oral Daily PRN 17 g at 05/27/21 0902 Allergies Allergen Reactions ??? Metoclopramide Review of Systems: All systems were reviewed. Pertinent positives are mentioned above. Exam Not done Assessment /Plan CAD + STEMI s/p CABG - Cardiac cath 05/01 with 40% distal LM, 100% prox LAD, 90% prox Cx, 50% prox and distal RCA - Echo 05/02 EF??37%, CABGx4 05/04/2021 - SR 80s on tele -Pro 2233 -CTS following ?? COVID 19 - dx 05/19/2021 - on Remdesivir and dexamethasone -on optiflow -pulmonology following ?? Acute Respiratory failure - Lung infiltrates per CXR on 05/19, completed Abx, COVID + - transferred to ICU 05/17 for increasing oxygen requirments - on Optiflow with decreased O2 requirements - Pulm following - CT PE negative? Hematuria - cysto 05/14 - resolved ?? Urinary retention -urology following ?? S/p Cardiogenic shock + Hypotension - off pressors -midodrine TID -BP improving ?? Hypokalemia - on K supplemented -??improved ??Starting lowdose coreg, lisinopril for LV dysfunction Hx V. Fib - brief on 05/03 - treated w/ Amiodarone and Dobutamine gtt, resolved -4 beat episode of NSVT 05/23 ?? HLD - on Statin ? Nalini Clayton MD F FORESTER * Natan Urias, [facility] - 05/28/2021 4:42 AM CST Pharmacokinetic Consult - Vancomycin Dosing Deepak Alvarado is a 60 y.o. male who has been consulted for vancomycin dosing for HAP. Relevant clinical data and objective history reviewed: Creatinine Date Value Ref Range Status 05/28/2021 0.40 (L) 0.80 - 1.30 mg/dL Final 05/27/2021 0.42 (L) 0.80 - 1.30 mg/dL Final 05/26/2021 0.48 (L) 0.80 - 1.30 mg/dL Final BUN Date Value Ref Range Status 05/28/2021 19 8 - 25 mg/dL Final 05/27/2021 22 8 - 25 mg/dL Final 05/26/2021 22 8 - 25 mg/dL Final Estimated Creatinine Clearance: 198.8 mL/min (A) (by C-G formula based on SCr of 0.4 mg/dL (L)). I/O last 3 completed shifts: In: 3485 [P.O.:2745; I.V.:740] Out: 2880 [Urine:2880] Lab Results Component Value Date/Time WBC 12.1 (H) 05/28/2021 02:47 AM HGB 11.2 (L) 05/28/2021 02:47 AM HGB 7.8 (L) 05/04/2021 07:28 PM HCT 34.3 (L) 05/28/2021 02:47 AM MCV 91.7 05/28/2021 02:47 AM LABPLAT 468 (H) 05/28/2021 02:47 AM Temp Readings from Last 3 Encounters: 05/28/21 36.1 ??C (96.9 ??F) Patient Weight 05/23/21 79.5 kg (175 lb 4.3 oz) Assessment/Plan The patient has been receiving vancomycin 1250 mg every 12 hours. Vancomycin trough level returned as 9.3 mcg/ml on 05/28 at 0247. Interval/Dose adjustment will be made. Trough level drawn ~3 hours late d/t shortage of blood draw tubes. Would expect trough to still be subtherapeutic if drawn appropriately. Will increase dose to 1500mg IV q12h with a f/u trough on 05/29 @ 1630 Pharmacy will continue to follow the patient???s culture results and clinical progress daily. Day 3 of therapy Natan Urias RPh F FORESTER * Rosy Muñoz NP - 05/27/2021 10:37 PM CST [facility] Critical Care Medicine Daily Progress Team: Community PM Subjective Patient is a 60 y.o. y/o male admitted on 05/01/2021 5:20 PM with the following indication(s) for ICU care - s/p CABG, now with COVID 19 viral pneumonia Interval History: -7 day course antibiotic for bacterial pneumonia -COVID 19 medical management -Optiflow at 35%, BiPAP if needed for increased work of breathing -hold Plavix 2/2 mild hematuria HPI 60 year old male with copd, obesity, pvd, htn, hld, dm2 & CAD s/p multiple LAD stents who p/w anterior STEMI after bladder procedure on 04/29. [facility] where they found in-stent thrombosis and an angioplasty was performed but stent could not be placed. A balloon pump was placed and the patient was transferred to the CVU. CT-surgery was consulted for CABG. The patie nt underwent a 4 vessel cabg on 05/04 w/ Dr. Granados (MAE->LAD, Saph vein->diag & obtuse, Saph->PDA). He developed rebleeding from his bladder tumor and this was adressed by urology. Heself extubated the next day after his CABG. His osorio was removed yesterday and he is currently post op day 11 from the CABG. He has been getting diuresed on the floor but has unfortunately had increasing oxygen requirement for the last 24 hours despite diuresis. He is currently on a non-rebreatherand being transferred to the ICU.?? Hospital Course 04/29 Cystoscopy at [facility] 04/30 STEMI, [facility] -> instent thrombosis, angioplasty, IABP, transfer to [facility] 05/04/21: Increased blood clot from osorio and obstruction with pain.?? 05/05/21: Brief asystole o/n w turning. Stable after. Self extubated in AM.?? 05/06/21: NAEON. Maintained on CPAP and optiflow.?? 05/07/21: NAEON. Up in chair at time of exam. TTF 05/10 near syncopal episode 05/14 cystoscopy with clot removal and fulguration of bleeding 05/17 readmit to ICU with pulmonary edema, lasix drip 05/18 Nasal cannula, on/off pressors, Negative VQ, ACTH Stim unremarkable 05/19 COVID positive, 15 L/NC, Remdesivir, dexamethasone 05/21 coude catheter placed, remains on optiflow, updated 05/22 increase seroquel, on optiflow 40L 75% 05/23 HF meds started, Lasix 40mg 05/24 FiO2 at 60% 05/25 PE protocol 05/26 pneumonia PCR ++++, start Vancomycin and Cefepime 05/27 Plavix resumed, overnight mild hematuria, Optiflow Scheduled Medications: albuterol HFA, 8 puff, inhalation, Q4H While awake (RT) aspirin, 81 mg, oral, Daily atorvastatin, 80 mg, oral, Nightly calcium gluconate, 2 g, intravenous, Once cefepime, 2,000 mg, intravenous, Q12H LEAH dapagliflozin, 10 mg, oral, Daily dexAMETHasone, 6 mg, intravenous, Daily docusate sodium, 100 mg, oral, BID enoxaparin, 40 mg, subcutaneous, Daily-2100 insulin lispro, 0-10 Units, subcutaneous, TID with meals insulin lispro, 0-5 Units, subcutaneous, Nightly insulin lispro, 0.083 Units/kg, subcutaneous, TID with meals insulin NPH, 6 Units, subcutaneous, Q6H LEAH ivabradine, 5 mg, oral, BID with meals (bkfst, dinner) lidocaine, 1 patch, transdermal, Daily magnesium sulfate, 4 g, intravenous, Once midodrine, 15 mg, oral, TID pantoprazole DR, 40 mg, oral, Daily QUEtiapine, 50 mg, oral, Nightly sodium bicarbonate, 650 mg, oral, BID sodium chloride 0.9%, 0.5-20 mL, intra-catheter, Q8H LEAH sodium phosphate - potassium phosphate, 500 mg, feeding tube, Once tamsulosin, 0.4 mg, oral, Daily with dinner vancomycin, 1,500 mg, intravenous, Q12H Continuous Medications: dextrose 10%, 10 mL/hr PRN Medications: ??? acetaminophen ? ? al & mag hydroxide qpqvmntjnem-cxsiarqpqerqjgg-itpwprprj-nystatin ??? albuterol ??? dextrose OR dextrose ??? dextrose OR [DISCONTINUED] dextrose ??? glucagon ??? guaiFENesin ??? ondansetron ??? polyethylene glycol Objective Vitals: Most Recent: Vitals: 05/28/21 0414 BP: Pulse: Resp: Temp: SpO2: 91% 24hr Min/Max: Temp Min: 36.1 ??C (96.9 ??F) Max: 36.8 ??C (98.2 ??F) Pulse Min: 69 Max: 95 BP Min: 94/61 Max: 117/77 Resp Min: 15 Max: 29 SpO2 Min: 91 % Max: 97 % LDA: PICC Double Lumen 05/18/21 Non-tunneled Power #1 Red, #2 Purple, Right Upper arm;Brachial (Active) Placement Date/Time: 05/18/21 1200 Catheter Time Out Checklist Completed: Yes Hand Hygiene Performed: Yes Site Prep: Alcohol;Betadine;Chlorhexidine Site Prep Agent has Completely Dried Before Insertion: Yes All 5 Sterile Barriers or Appropriate ... Number of days: 7 Urethral Catheter Coude (Active) Placement Date/Time: 05/21/21 1103 Inserted by: vanessa Catheter Type: Coude Tube Size (Fr.): 18 Fr Catheter Balloon Size: 5 mL Urine Returned: Yes Number of days: 4 Vent settings: FiO2 (%): [35 %-40 %] 40 % Hemodynamic parameters for last 24 hours: I/O: Date 05/27/21699 - 05/28/21 0659 05/28/21 07 - 05/29/21 0659 Shift 3631-1930 4381-1085 24 Hour Total 3543-8020 7540-6741 24 Hour Total INTAKE P.O. 1445 1445 I.V.(mL/kg) 425(5.3) 425(5.3) Shift Total(mL/kg) 1870(23.5) 1870(23.5) OUTPUT Urine(mL/kg/hr) 1470(1.5) 1470 Shift Total(mL/kg) 1470(18.5) 1470(18.5) NET 400 400 Weight (kg) 79.5 79.5 79.5 79.5 79.5 79.5 Physical Exam: General: ill appearing patient, frail Neurologic: awake, following commands, regarding examiner HEENT: PERRL, neck supple Cardiovascular: S1, S2; RRR Pulmonary: bilateral diminished, respirations slightly labored, Optiflow therapy Abdomen: + bowel sounds, soft, NT/ND Extremities: warm, dry, +pulses, no edema Drains: Osorio catheter - mild hematuria Skin: without rashes or lesions Lab/Radiology/Diagnostic Review: Laboratory review: Lab results in the last 24 hours: Recent Results (from the past 24 hour(s)) Phosphorus Collection Time: 05/27/21 6:40 AM Result Value Ref Range Phosphorus, pl 3.0 2.3 - 4.5 mg/dL Magnesium Collection Time: 05/27/21 6:40 AM Result Value Ref Range Magnesium 1.7 1.4 - 2.5 mg/dL CBC without differential Collection Time: 05/27/21 6:40 AM Result Value Ref Range WBC 13.5 (H) 3.8 - 9.9 K/cumm Hgb 9.9 (L) 13.0 - 17.5 g/dL Hct 29.8 (L) 38.9 - 50.3 % Plt 519 (H) 150 - 400 K/cumm MPV 11.0 9.1 - 12.3 fL RBC 3.23 (L) 4.30 - 5.80 M/cumm MCV 92.3 81.3 - 96.4 fL MCH 30.7 27.1 - 33.3 pg MCHC 33.2 32.3 - 35.7 g/dL RDW CV 13.5 11.1 - 14.9 % RDW SD 45.3 35.7 - 48.1 fL NRBC abs 0.00 0.00 - 0.01 K/cumm Basic metabolic panel Collection Time: 05/27/21 6:40 AM Result Value Ref Range Sodium 130 (L) 135 - 145 mmol/L Potassium, pl 4.6 3.3 - 4.9 mmol/L Chloride 100 97 - 110 mmol/L CO2 20 (L) 22 - 32 mmol/L Anion gap 10 2 - 15 mmol/L BUN 22 8 - 25 mg/dL Creatinine 0.42 (L) 0.80 - 1.30 mg/dL Glucose 183 70 - 199 mg/dL Calcium 8.9 8.5 - 10.3 mg/dL eGFR Collection Time: 05/27/21 6:40 AM Result Value Ref Range eGFR 127 mL/min/1.73 m2 POCT glucose Collection Time: 05/27/21 6:47 AM Result Value Ref Range Glucose, POC 102 70 - 199 mg/dL POCT glucose Collection Time: 05/27/21 8:11 AM Result Value Ref Range Glucose, POC 87 70 - 199 mg/dL POCT glucose Collection Time: 05/27/21 12:19 PM Result Value Ref Range Glucose, POC 164 70 - 199 mg/dL POCT glucose Collection Time: 05/27/21 5:56 PM Result Value Ref Range Glucose, POC 186 70 - 199 mg/dL POCT glucose Collection Time: 05/27/21 10:17 PM Result Value Ref Range Glucose, POC 83 70 - 199 mg/dL POCT glucose Collection Time: 05/28/21 1:22 AM Result Value Ref Range Glucose, POC 109 70 - 199 mg/dL Vancomycin level trough Draw trough 30 minutes prior to dose. Collection Time: 05/28/21 2:47 AM Result Value Ref Range Vancomycin trough 9.3 (L) 10.0 - 20.0 mcg/mL Phosphorus Collection Time: 05/28/21 2:47 AM Result Value Ref Range Phosphorus, pl 2.7 2.3 - 4.5 mg/dL Magnesium Collection Time: 05/28/21 2:47 AM Result Value Ref Range Magnesium 1.5 1.4 - 2.5 mg/dL CBC without differential Collection Time: 05/28/21 2:47 AM Result Value Ref Range WBC 12.1 (H) 3.8 - 9.9 K/cumm Hgb 11.2 (L) 13.0 - 17.5 g/dL Hct 34.3 (L) 38.9 - 50.3 % Plt 468 (H) 150 - 400 K/cumm MPV 11.0 9.1 - 12.3 fL RBC 3.74 (L) 4.30 - 5.80 M/cumm MCV 91.7 81.3 - 96.4 fL MCH 29.9 27.1 - 33.3 pg MCHC 32.7 32.3 - 35.7 g/dL RDW CV 13.3 11.1 - 14.9 % RDW SD 43.7 35.7 - 48.1 fL NRBC abs 0.00 0.00 - 0.01 K/cumm Basic metabolic panel Collection Time: 05/28/21 2:47 AM Result Value Ref Range Sodium 135 135 - 145 mmol/L Potassium, pl 3.7 3.3 - 4.9 mmol/L Chloride 107 97 - 110 mmol/L CO2 17 (L) 22 - 32 mmol/L Anion gap 11 2 - 15 mmol/L BUN 19 8 - 25 mg/dL Creatinine 0.40 (L) 0.80 - 1.30 mg/dL Glucose 68 (L) 70 - 199 mg/dL Calcium 7.7 (L) 8.5 - 10.3 mg/dL eGFR Collection Time: 05/28/21 2:47 AM Result Value Ref Range eGFR 130 mL/min/1.73 m2 POCT glucose Collection Time: 05/28/21 4:40 AM Result Value Ref Range Glucose, POC 116 70 - 199 mg/dL Assessment/Plan NEURO: -encourage day/night cycle CV: #Acute anterior STEMI with CAD s/p PCI to the LAD #HFrEF -s/p CABG x 4 with CTS, Dr. 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 care PULM: #Acute Hypoxic Respiratory Failure: 2/2 Confirmed Positive COVID-19 viral pneumonia, improved sincestarting antibiotics Pulmonary Support: O2 Therapy: Supplemental oxygen O2 Del Method: High humidity nasal cannula i.e.Optiflow, Airvo FiO2 (%): 40 % O2 Flow Rate (L/min): 45 L/min FiO2 (%): 40 % -requiring Optiflow therapy --> place on BiPAP if worsened respiratory distress -encourage aggressive pulmonary toilet -goal SPO2 > 88% -STAT PE protocol CT scan completed 05/25/21 2/2 hypoxia, negative, + COVID 19 changes -COVID medical management -start empiric antibiotic therapy 05/26/21, de-escalate based on susceptibilities Consults: Cuff Matcher, ID physician Endo: #Hyperglycemia, labile blood glucose --> glucose 68 tonight, treated, resume low dose D10 -frequent glucose checks, NPH/SSI -HgbA1c > 13 this admission Consults: Endocrinology GI: -Nutrition plan: ADAT, encourage PO intake RENAL: Lab Results Component Value Date CREATININE 0.40 (L) 05/28/2021 #History of gross hematuria s/p cystoscopy with clot evacuation and transurethral resection of bladder tumor at [place] -Plavix resumed today, however, noted to have mild hematuria overnight, Plavix on hold for now -Cystoscopy 05/14/21 with clot evacuation and fulguration for reported tumor -05/21/21 Coude placed, keep Osorio catheter today 2/2 worsening hypoxia with exertion Date 05/27/21 07 - 05/28/21 0659 05/28/21 07 - 05/29/21 0659 Shift 2510-8405 9176-6012 24 Hour Total 8558-8602 1647-4431 24 Hour Total INTAKE P.O. 1445 1445 I.V.(mL/kg) 425(5.3) 425(5.3) Shift Total(mL/kg) 1870(23.5) 1870(23.5) OUTPUT Urine(mL/kg/hr) 1470(1.5) 1470 Shift Total(mL/kg) 1470(18.5) 1470(18.5) NET 400 400 Weight (kg) 79.5 79.5 79.5 79.5 79.5 79.5 HEME: Lab Results Component Value Date HGB 11.2 (L) 05/28/2021 #ABLA 2/2 surgical procedure, critical illness -CBC in the AM -no indication for transfusion -transfuse for Hbg <7 -DVT prophylaxis: Lovenox ID: Lab Results Component Value Date WBC 12.1 (H) 05/28/2021 #Confirmed Positive COVID-19 pneumonia -Decadron x 10 days -Remdesivir course completed -baricitinib x 1 dose then discontinued 2/2 + culture results -trend WBC and fever curve -supportive COVID care #MRSA pneumonia, Moraxella, H Influenzea -Vancomycin and Cefepime started 05/26/21, plan for 7 day course -follow sensitivities Consults: ID physician Culture Results: No flowsheet data found. Lab Results Component Value Date MICROBIOLOGY Preliminary Report: No growth to date. 05/26/2021 MICROBIOLOGY Preliminary Report: No growth to date. 05/26/2021 MICROBIOLOGY (.) 05/26/2021 Preliminary Report: Growth indicates upper respiratory tirso. MICROBIOLOGY (.) 05/05/2021 Final Report: Greater than or equal to 100,000 colonies/ml of Yeast Britta pneumonia is very rare and requires a histopathological diagnosis. The recovery of these organisms in routine culture, in most cases, only represents overgrowth of the organism secondary to antimicrobial therapy. Please contact the microbiology laboratory at [phone] if identification or susceptibility testing is clinically indicated. Access: Right brachial PICC (11/29) --> place PIV in the AM and discontinue PPx: SCD, Lovenox Assessment and plan has been reviewed with attending, Dr. Dalton Muñoz NP [phone], [place] [facility] Department of Anesthesiology Division of Critical Care Medicine Cosigned by Austin Hoffman MD at 06/09/2021 1:01 PM STAFF FORESTER F FORESTER F FORESTER * Ralf Tomlinson MD - 05/27/2021 1:43 PM CST Pulmonary Daily Progress Chief complaint/reason for consult: Respiratory failure. Interval History: On optiflow 40%/55L Afebrile alert Appears comf COVID positive 05/19/21 Presenting History: 60 yo man w COPD, DM, CAD/stents admitted 05/01/21 with chest pain. Had recent hematuria as well. Workup revealed an acute MT. Cath showed multi-vessel CAD. Had balloon pump placed. CABG x 4 done on 05/04/21. He was continued on mechanical ventilation and self extubated this AM (05/05/21). He is on multiple pressors. Sedated with precedex. Some tachypnea. A balloon pump is in place. Current tobacco use. COPD listed as prior diagnosis. No inhalers on home med list. Allergies: Allergies Allergen Reactions ??? Metoclopramide Medications: Scheduled Meds:albuterol HFA, 8 puff, inhalation, Q4H While awake (RT) aspirin, 81 mg, oral, Daily atorvastatin, 80 mg, oral, Nightly cefepime, 2,000 mg, intravenous, Q12H LEAH clopidogreL, 75 mg, oral, Daily dapagliflozin, 10 mg, oral, Daily dexAMETHasone, 6 mg, intravenous, Daily docusate sodium, 100 mg, oral, BID enoxaparin, 40 mg, subcutaneous, Daily-2100 insulin lispro, 0-10 Units, subcutaneous, TID with meals insulin lispro, 0-5 Units, subcutaneous, Nightly insulin lispro, 0.083 Units/kg, subcutaneous, TID with meals insulin NPH, 6 Units, subcutaneous, Q6H LEAH ivabradine, 5 mg, oral, BID with meals (bkfst, dinner) lidocaine, 1 patch, transdermal, Daily midodrine, 15 mg, oral, TID pantoprazole DR, 40 mg, oral, Daily QUEtiapine, 50 mg, oral, Nightly sodium bicarbonate, 650 mg, oral, BID sodium chloride 0.9%, 0.5-20 mL, intra-catheter, Q8H LEAH tamsulosin, 0.4 mg, oral, Daily with dinner vancomycin, 15 mg/kg, intravenous, Q12H Continuous Infusions: PRN Meds:.??? acetaminophen ? ? al & mag hydroxide qdekphrbedc-qbkotayucwkcscr-vjtiimvxt-nystatin ??? albuterol ??? dextrose OR dextrose ??? dextrose OR [DISCONTINUED] dextrose ??? glucagon ??? glucagon ??? guaiFENesin ??? ondansetron ??? polyethylene glycol ROS Above review of system reviewed on 05/27/2021 Vitals: Vitals: 05/27/21 0530 05/27/21 0545 05/27/21 0734 05/27/21 1026 BP: 112/66 Pulse: 83 69 Resp: 18 15 Temp: TempSrc: SpO2: 93% 97% Weight: Height: Temp (24hrs), Av.6 ??C (97.8 ??F), Min:36.6 ??C (97.8 ??F), Max:36.6 ??C (97.9 ??F) FiO2 (%): [40 %-100 %] 40 % Intake/Output Summary (Last 24 hours) at 05/27/2021 1343 Last data filed at 05/27/2021 1300 Gross per 24 hour Intake 1965 ml Output 1820 ml Net 145 ml Physical Exam Constitutional: General: He is not in acute distress. Appearance: He is well-developed. HENT: Head: Normocephalic and atraumatic. Eyes: General: No scleral icterus. Conjunctiva/sclera: Conjunctivae normal. Neck: Thyroid: No thyromegaly. Cardiovascular: Rate and Rhythm: Normal rate and regular rhythm. Heart sounds: No murmur heard. Pulmonary: Effort: Pulmonary effort is normal. No respiratory distress. Breath sounds: Normal breath sounds. No wheezing, rhonchi or rales. Chest: Comments: Sternotomy incision Abdominal: General: Bowel sounds are normal. Palpations: Abdomen is soft. Skin: General: Skin is warm and dry. Neurological: Mental Status: He is alert. Lab/Radiology/Diagnostic Review: Labs: Recent Labs Lab Units 05/27/21 0640 05/26/21 0623 05/25/21 0300 WBC K/cumm 13.5* 14.0* 11.2* HEMOGLOBIN g/dL 9.9* 10.7* 10.0* HEMATOCRIT % 29.8* 32.6* 31.6* PLATELETS K/cumm 519* 535* 459* Recent Labs Lab Units 05/27/21 1219 05/27/21 0811 05/27/21 0647 05/27/21 0640 05/27/21 0041 05/26/21 0632 05/26/21 0623 05/25/21 0920 05/25/21 0300 SODIUM mmol/L -- -- -- 130* -- -- 136 -- 132* POTASSIUM PLASMA mmol/L -- -- -- 4.6 -- -- 4.4 -- 4.2 CHLORIDE mmol/L -- -- -- 100 -- -- 101 -- 96* CO2 mmol/L -- -- -- 20* -- -- 22 -- 23 ANIONGAP mmol/L -- -- -- 10 -- -- 13 -- 13 GLUCOSE mg/dL -- -- -- 183 -- < > 77 -- 222* POC GLUCOSE MONITOR mg/dL 164 87 102 -- < > < > -- < > -- BUN SERUM mg/dL -- -- -- 22 -- -- 22 -- 24 CREATININE mg/dL -- -- -- 0.42* -- -- 0.48* -- 0.58* CALCIUM mg/dL -- -- -- 8.9 -- -- 9.1 -- 9.0 < > = values in this interval not displayed. Recent Labs Lab Units 05/25/21 0951 PH ART 7.47* PCO2 ART mmHg 32* PO2 ART mmHg 72* HCO3 ART (CALC) mmol/L 24 BASE EXC ART mmol/L 0 O2 SAT ART (JOELLE) % 95 Imaging: CT chest 05/19/21: b gg inf, severe emphysema CT chest 05/25/21: b inf, emphysema, no PE Other diagnostic tests: I have personally reviewed above laboratory findings, chest imaging, and diagnostic tests 05/27/2021 Assessment and Plan: Acute respiratory failure Acute MT w CAD s/p CABG x 4 on 05/04/21, past hx multiple stents Cardiogenic shock, resolved Cardiomyopathy EF 40% V fib COPD: severe emphysematous changes on CT Anemia Hematuria s/p cystoscopy/fulguration COVID 19, diagnosed 05/19/21, resp status began worsening 05/15/21 Possible bacterial pneumonia, treated ?? Recs: Oxygen support, adjust as needed Dexamethasone started 05/19 On baricitinib On cefepime and vancomycin Incentive spirometry Scheduled albuterol Scheduled bronchodilators Increase activity as tolerated Chart reviewed F FORESTER * Yves Weinberg MD - 05/27/2021 1:16 PM CST Nephrology Progress Note [facility] SUBJECTIVE 05/27/21 Doing about the same. Has completed tx for COVID. Still in ICU. All labs reviewed. 05/26/21 Doing fair. Appears comfortable. Some dyspnea. All labs and data reviewed. Na and Cr stable. Good UO. 05/25/21 Doing fair. All labs reviewed. Renal fn nl. Na 132. Overall slowly improving. 05/24/21 Pt seen/examined. All labs and data reviewed. Getting IV lasix PRN. Na 133, lytes and renal fn stable. 05/23/21 Pt seen/examined. All labs reviewed. Receiving K phos. BP soft, on hi dose midodrine. Na 132. I gave lasix 40 iv times 1 for falling UO. Remains in ICU. 05/22/21 Pt seen/examined. All labs and data reviewed. Na 134, Cr 0.62. Dyspnea better. Eager to go home but remains in ICU. Stable renal fn and lytes. OK for loop diuretics PRN. Avoid thiazides. 05/21/21 Pt seen/examined. All labs reviewed. Off lasix drip. Still dyspneic. Renal fn better. Na 135. 05/20/21 Pt seen/examined. All labs and data reviewed. COVID pos. On Dex and remdisivir. On lasix drip. Na 130, Cr 1.44. 05/19 Cr 1.41 Na 130. Started on Corlanor. Appears stable. BP remains very soft. UO not accurate. 05/17 Transferred to ICU for hi O2 requirements. Has left nostril epistaxis. On low dose pressors and lasix and insulin drip. Na 128, should improve with loop diuresis. Cr 1.2. 05/16 Creatinine stable and sodium trending up.On IV lasix,lytes wnl.Osorio out,having some problems with retention- nurses in contact with urology,doing bladder scans. 05/15/21 Doing fair. Osorio out. Has not voided yet. Na 131 with loop diuresis and improved. All labs and data reviewed. Excellent UO. Doing fair. Some flank pain and mild dyspnea. Na 127 and a little lower. BP better. Agreeable to cysto, but urology planning on conservative tx. Will start loop diuresis. OBJECTIVE Vitals: Vitals: 05/27/21 0530 05/27/21 0545 05/27/21 0734 05/27/21 1026 BP: 112/66 Pulse: 83 69 Resp: 18 15 Temp: TempSrc: SpO2: 93% 97% Weight: Height: Intake/Output Summary (Last 24 hours) at 05/27/2021 1316 Last data filed at 05/27/2021 1000 Gross per 24 hour Intake 1215 ml Output 1595 ml Net -380 ml REVIEW OF SYSTEMS Review of Systems Epistaxis, dyspnea. Constitutional: Negative. HENT: Negative. Eyes: Negative. Respiratory: Negative. Cardiovascular: Negative. Gastrointestinal: Negative. Genitourinary: Negative. Musculoskeletal: Negative. Skin: Negative. Allergic/Immunologic: Negative. Hematological: Negative. All other systems reviewed and are negative. PHYSICAL EXAM Physical Exam Constitutional: Appears well-developed. O2 on HENT: wnl Head: Normocephalic. Eyes: Pupils are equal, round, and reactive to light. Neck: Normal range of motion. Neck supple. Cardiovascular: Normal rate. Pulmonary/Chest: Effort normal and breath sounds normal. Abdominal: Soft. NT,active BS Musculoskeletal: Normal range of motion. Neurological: Alert, oriented. Skin: Skin is warm. Nursing note and vitals reviewed. MEDICATIONS Current Facility-Administered Medications: ??? acetaminophen (TYLENOL) tablet 650 mg, 650 mg, oral, Q6H PRN, Eleonora Duarte NP, 650 mg at 05/21/21 1545 ? ? al & mag hydroxide kksjckquscx-gufylqgyltrbftk-uviglspul-nystatin (MAGIC MOUTHWASH) suspension 1-1-1-1, 20 mL, swish & spit, Q4H PRN, Elena Kelly NP ??? albuterol 2.5 mg /3 mL (0.083 %) nebulizer solution 2.5 mg, 2.5 mg, nebulization, Q4H PRN (RT),Ralf Tomlinson MD, 2.5 mg at 05/17/21 0224 ??? albuterol HFA (PROVENTIL HFA,VENTOLIN HFA,PROAIR HFA) 90 mcg/actuation inhaler 8 puff, 8 puff, inhalation, Q4H While awake (RT), Ralf Tomlinson MD, 8 puff at 05/27/21 0734 ??? aspirin enteric coated tablet 81 mg, 81 mg, oral, Daily, Varsha Crowder NP, 81 mg at 05/27/21 0903 ??? atorvastatin (LIPITOR) tablet 80 mg, 80 mg, oral, Nightly, Rhina Granados MD, 80 mg at 05/26/21 2216 ??? cefepime (MAXIPIME) 2,000 mg in sodium chloride 0.9% 100 mL IVPB, 2,000 mg, intravenous, Q12H LEAH, Rhina Granados MD, Last Rate: 200 mL/hr at 05/27/21 09, 2,000 mg at 05/27/21 0903 ??? clopidogreL (PLAVIX) tablet 75 mg, 75 mg, oral, Daily, Alejandro Gonzalez NP, 75 mg at 05/27/21 1009 ??? dapagliflozin (FARXIGA) tablet 10 mg, 10 mg, oral, Daily, Stephen Melgar MD, 10 mg at ??? dexAMETHasone (DECADRON) 4 mg/mL injection 6 mg, 6 mg, intravenous, Daily, Silviano Huddleston NP, 6 mg at 05/27/21 0903 ??? dextrose oral liquid liquid 15 g, 15 g, oral, Q15 Min PRN OR dextrose (D10W) 10% bolus 250 mL, 250 mL, intravenous, Q15 Min PRN, Silviano Huddleston NP ??? dextrose oral liquid liquid 15 g, 15 g, oral, Q15 Min PRN OR [DISCONTINUED] dextrose (D10W)10% bolus 250 mL, 250 mL, intravenous, Q15 Min PRN, Anibal Lara MD ??? docusate sodium (COLACE) capsule 100 mg, 100 mg, oral, BID, 100 mg at 05/27/21 09 OR [DISCONTINUED] docusate (COLACE) 10 mg/mL oral liquid 100 mg, 100 mg, feeding tube, BID, Rhina Granados MD, 100 mg at 05/05/21 0842 ??? enoxaparin (LOVENOX) syringe 40 mg, 40 mg, subcutaneous, Daily-2100, Rhina Granados MD, 40 mg at 05/26/21 2216 ??? glucagon injection 1 mg, 1 mg, intramuscular, Q30 Min PRN, Anibal Lara MD ??? glucagon injection 1 mg, 1 mg, intramuscular, Q30 Min PRN, Silviano Huddleston NP ??? guaiFENesin (ROBITUSSIN) 20 mg/mL oral liquid 200 mg, 200 mg, oral, QID PRN, Caleb Toth PA, 200 mg at 05/25/21 9683 ??? insulin lispro (HumaLOG, ADMELOG) 100 unit/mL injection 0-10 Units, 0-10 Units, subcutaneous, TID with meals, Silviano Huddleston NP, 2 Units at 05/27/21 1220 ??? insulin lispro (HumaLOG, ADMELOG) 100 unit/mL injection 0-5 Units, 0-5 Units, subcutaneous, Nightly, Silviano Huddleston NP, 1 Units at 05/25/212102 ??? insulin lispro (HumaLOG, ADMELOG) 100 unit/mL injection 7 Units, 0.083 Units/kg, subcutaneous, TID with meals, Silviano Huddleston NP, 7 Units at 05/27/21 1221 ??? insulin NPH (HumuLIN N, NovoLIN N) 100 unit/mL injection 6 Units, 6 Units, subcutaneous, Q6H LEAH, Rosy Muñoz NP, 6 Units at 05/27/21 1221 ??? ivabradine (CORLANOR) tablet 5 mg, 5 mg, oral, BID with meals (bkfst, dinner), Stephen Melgar MD, 5 mg at 05/27/21902 ??? lidocaine (LIDODERM) 5 % patch 1 patch, 1 patch, transdermal, Daily, Rosy Muñoz NP, Last Rate: 0 mL/hr at 05/26/21 2240, 1 patch at 05/27/21901 ??? midodrine (PROAMATINE) tablet 15 mg, 15 mg, oral, TID, Silviano Huddleston NP, 15 mg at 05/27/21902 ??? ondansetron (ZOFRAN) injection 4 mg, 4 mg, intravenous, Q6H PRN, Rhina Granados MD ??? pantoprazole DR (PROTONIX) extended release tablet 40 mg, 40 mg, oral, Daily, Rhina Granados MD, 40 mg at 05/27/21902 ??? polyethylene glycol (MIRALAX) packet 17 g, 17 g, oral, Daily PRN, Rhina Granados MD, 17 g at 05/27/21901 ??? QUEtiapine (SEROquel) tablet 50 mg, 50 mg, oral, Nightly, Silviano Huddleston NP, 50 mg at 05/26/21 2216 ??? sodium chloride 0.9% flush 0.5-20 mL, 0.5-20 mL, intra-catheter, Q8H LEAH, Rhina Granados MD, 10 mL at 05/27/21 0702 ??? spironolactone (ALDACTONE) tablet 25 mg, 25 mg, oral, Daily, Stephen Melgar MD, 25 mg at 05/27/21 0903 ??? tamsulosin (FLOMAX) extended release capsule 0.4 mg, 0.4 mg, oral, Daily with dinner, Elena Kelly, EFREN, 0.4 mg at 05/26/21 1715 ??? vancomycin (VANCOCIN) 1,250 mg in sodium chloride 0.9% 250 mL IVPB, 15 mg/kg, intravenous, Q12H, Rosy Muñoz NP, Last Rate: 262.5 mL/hr at 05/27/21 1224, 1,250 mg at 05/27/21 1224 Lab/Radiology/Diagnostic Review: Recent Results (from the past 24 hour(s)) POCT glucose Collection Time: 05/26/21 1:19 PM Result Value Ref Range Glucose, POC 237 (H) 70 - 199 mg/dL MRSA Only (Staphylococcs aureus) PCR Nasal Collection Time: 05/26/21 1:31 PM Specimen: Nasal Result Value Ref Range PCR Scrn, Methicillin resistant Staphylococcus aureus (MRSA) Not Detected Not Detected Blood culture Blood Antecubital, left Collection Time: 05/26/21 1:43 PM Specimen: Antecubital, left; Blood Result Value Ref Range Report Preliminary Report: No growth to date. Blood culture Blood Antecubital, right Collection Time: 05/26/21 1:43 PM Specimen: Antecubital, right; Blood Result Value Ref Range Report Preliminary Report: No growth to date. Legionella antigen Urine Collection Time: 05/26/21 4:01 PM Specimen: Urine Result Value Ref Range Legionella Ag Negative Negative Strep pneumoniae antigen, urine Urine Collection Time: 05/26/21 4:01 PM Specimen: Urine Result Value Ref Range S. pneumoniae Ag Negative Negative Urinalysis reflex to microscopic Collection Time: 05/26/21 4:01 PM Result Value Ref Range Color, ur Yellow Yellow Clarity, ur Clear Clear Specific gravity, ur 1.028 1.003 - 1.030 pH, urine 7.0 Protein, ur ql Negative Negative Glucose, ur ql 3+ (A) Negative Ketones, ur Negative Negative Bilirubin, ur Negative Negative Blood, ur 2+ (A) Negative Urobilinogen, ur <2.0 <2.0 mg/dL Nitrite, ur Negative Negative Leukocyte esterase, ur 1+ (A) Negative UA reflex comment Reflex to microscopic UA will be performed. Urinalysis, microscopic only Collection Time: 05/26/21 4:01 PM Result Value Ref Range WBC, ur 11-20 (A) 0 - 5 /HPF RBC, ur >50 (A) 0 - 2 /HPF Bacteria, ur Trace (A) Yeast, ur 4+ (A) POCT glucose Collection Time: 05/26/21 5:03 PM Result Value Ref Range Glucose, POC 159 70 - 199 mg/dL POCT glucose Collection Time: 05/26/21 10:24 PM Result Value Ref Range Glucose, POC 93 70 - 199 mg/dL POCT glucose Collection Time: 05/27/21 12:41 AM Result Value Ref Range Glucose, POC 118 70 - 199 mg/dL Phosphorus Collection Time: 05/27/21 6:40 AM Result Value Ref Range Phosphorus, pl 3.0 2.3 - 4.5 mg/dL Magnesium Collection Time: 05/27/21 6:40 AM Result Value Ref Range Magnesium 1.7 1.4 - 2.5 mg/dL CBC without differential Collection Time: 05/27/21 6:40 AM Result Value Ref Range WBC 13.5 (H) 3.8 - 9.9 K/cumm Hgb 9.9 (L) 13.0 - 17.5 g/dL Hct 29.8 (L) 38.9 - 50.3 % Plt 519 (H) 150 - 400 K/cumm MPV 11.0 9.1 - 12.3 fL RBC 3.23 (L) 4.30 - 5.80 M/cumm MCV 92.3 81.3 - 96.4 fL MCH 30.7 27.1 - 33.3 pg MCHC 33.2 32.3 - 35.7 g/dL RDW CV 13.5 11.1 - 14.9 % RDW SD 45.3 35.7 - 48.1 fL NRBC abs 0.00 0.00 - 0.01 K/cumm Basic metabolic panel Collection Time: 05/27/21 6:40 AM Result Value Ref Range Sodium 130 (L) 135 - 145 mmol/L Potassium, pl 4.6 3.3 - 4.9 mmol/L Chloride 100 97 - 110 mmol/L CO2 20 (L) 22 - 32 mmol/L Anion gap 10 2 - 15 mmol/L BUN 22 8 - 25 mg/dL Creatinine 0.42 (L) 0.80 - 1.30 mg/dL Glucose 183 70 - 199 mg/dL Calcium 8.9 8.5 - 10.3 mg/dL eGFR Collection Time: 05/27/21 6:40 AM Result Value Ref Range eGFR 127 mL/min/1.73 m2 POCT glucose Collection Time: 05/27/21 6:47 AM Result Value Ref Range Glucose, POC 102 70 - 199 mg/dL POCT glucose Collection Time: 05/27/21 8:11 AM Result Value Ref Range Glucose, POC 87 70 - 199 mg/dL POCT glucose Collection Time: 05/27/21 12:19 PM Result Value Ref Range Glucose, POC 164 70 - 199 mg/dL Recent Labs Lab Units 05/26/21 1601 CLARITY U Clear COLOR U Yellow KETONES UR Negative NITRITE UR Negative SPEC GRAV U 1.028 UROBILINOGEN UR mg/dL <2.0 WBC UR QT /HPF 05-09* XR Chest 1 View - Portable - in AM Result Date: 05/11/2021 Narrative: EXAMINATION: XR CHEST 1 VIEW HISTORY: The patient is a 60-year-old male who has had cardiac surgery. Comparison made with the previous study dated 05/10/2021. TECHNIQUE: AP portable view of the chest. FINDINGS: Lungs clear. Heart not enlarged. Aortic atherosclerosis. No failure. The right IJ [place] catheter has been retracted with its tip in the distal superior vena cava. Impression: IMPRESSION: No failure. Electronically signed by: Elvira Blackman M.D. XR Chest 1 View - Portable - in AM Result Date: 05/10/2021 Narrative: EXAMINATION: XR CHEST 1 VIEW DATE: 05/10/2021 2:40 AM COMPARISON: 05/09/2021 HISTORY: 60-year-old man cardiac surgery follow-up FINDINGS:Compared with study the previous day, significant improvement. There is cardiomegaly with postsurgical changes with continued and decreasing failure. Bibasilar atelectasis with left pleural fluid decreasing. No pneumothorax. [place] catheter remainsin place Impression: Decreasing failure, atelectasis and left effusion. Electronically signed by: Deandre Lomeli M.D. XR Chest 1 View - Portable - in AM Result Date: 05/09/2021 Narrative: EXAMINATION: XR CHEST 1 VIEW DATE: 05/09/2021 4:10 AM HISTORY: 60-year-old man cardiac surgery follow-up FINDINGS:Compared with study the previous day, significant improvement. There is cardiomegaly with postsurgical changes with continued but decreasing failure. Bibasilar atelectasis with left pleural fluid decreasing. No pneumothorax. [place] catheter remains in place Impression: Decreasing failure, atelectasis and left effusion. Electronically signed by: Deandre Lomeli M.D. XR Chest 1 View - Portable - in AM Result Date: 05/08/2021 Narrative: EXAMINATION: XR CHEST 1 VIEW DATE: 05/08/2021 4:15 AM HISTORY: 60-year-old man cardiac surgery follow-up FINDINGS:Compared with study the previous day, significant improvement. There is cardiomegaly with postsurgical changes with continued but decreasing failure. Bibasilar atelectasis with left pleural fluid. No pneumothorax. [place] catheter remains in place Impression: Decreasing failure. No pneumothorax. Electronically signed by: Deacon Cummings M.D. XR Chest 1 View - Portable - in AM Result Date: 05/07/2021 Narrative: EXAMINATION: XR CHEST 1 VIEW DATE: 05/07/2021 3:55 AM HISTORY: 60-year-old man follow-upcardiac surgery FINDINGS:Compared with study of the previous day, postsurgical changes in the heartand mediastinum with cardiomegaly are stable. [place] catheter remains in place. Left thoracostomy tube remains in place. No pneumothorax. Pulmonary vascular congestion with interstitial lung disease remain prominent. Impression: Persistent prominent interstitial lung disease with failure. Electronically signed by: Deacon Cummings M.D. XR Chest 1 View - Portable - in AM Result Date: 05/06/2021 Narrative: EXAMINATION: XR CHEST 1 VIEW DATE: 05/06/2021 4:05 AM INDICATION: Cardiac surgery. COMPARISON: 05/05/2021. FINDINGS: No pneumothorax or pleural effusion. Similar-appearing pulmonary vascular congestion and interstitial opacities most notable in the bilateral upper lobes consistent with pulmonary edema. Pulmonary catheter catheter, left thoracostomy tube, and mediastinal drain are appropriately position. Intra-aortic balloon pump is appropriately positioned. Interval removal of endotracheal tube. Impression: 1. Interval removal of endotracheal tube. Remaining tubes and lines are appropriately positioned. 2. Similar-appearing cardiomegaly, pulmonary vascular congestion, and prominent bilateralinterstitial markings suggestive of interstitial pulmonary edema. Electronically signed by: Richard Zhao II, D.O. XR Chest 1 View - Portable - in AM Result Date: 05/05/2021 Narrative: EXAMINATION: XR CHEST 1 VIEW DATE: 05/05/2021 4:15 AM HISTORY: 60-year-old man cardiac surgery follow-up FINDINGS:Compared with the study of the prior day, tubes and catheters remain satisfactorily positioned. Worsening pulmonary vascular congestive changes are seen. Cardiomegaly with postsurgical changes stable. No pneumothorax. Impression: Increasing failure. Electronically signed by: Deacon Cummings M.D. XR Chest 1 Vw Portable Result Date: 05/05/2021 Narrative: EXAMINATION: XR CHEST 1 VIEW DATE: 05/04/2021 8:40 PM HISTORY: 60-year-old man coronary artery bypass follow-up FINDINGS:Compared with the study of earlier the same day, postsurgical changes now evident within the heart and mediastinum with cardiomegaly. Interval placement of endotracheal tube, nasogastric tube, [place] catheter, left thoracostomy tube and mediastinal drain all in satisfactory position. No pneumothorax. Interstitial lung disease with mild pulmonary vascular congestive changes. Aortic balloon pump is no longer seen. Impression: Tube placements with postsurgical changes with cardiomegaly with interstitial lung disease and mild failure with no pneumothorax. Electronically signed by: Deacon Cummings M.D. XR Chest 1 Vw Portable Result Date: 05/04/2021 Narrative: EXAMINATION: XR CHEST 1 VIEW DATE: 05/04/2021 9:05 AM HISTORY: Coronary artery disease FINDINGS:Comparison is made with study of 2 days earlier. Cardiomegaly, COPD with interstitial lung disease stable. Mild failure. Aortic balloon pump stable in position at the proximal descending aorta. No pneumothorax. No new infiltrates. Impression: Stable appearance. COPD cardiomegaly, with mild failure suspected. Electronically signed by: Deacon Cummings M.D. XR Chest 1 Vw Portable Result Date: 05/02/2021 Narrative: EXAMINATION: XR CHEST 1 VIEW DATE: 05/02/2021 5:15 AM INDICATION: Intra-aortic balloon pump. COMPARISON: 05/01/2021. FINDINGS: Appropriately positioned intra-aortic balloon pump appears unchanged. No pneumothorax or pleural effusion. Mixed reticular and alveolar opacities demonstrated inall lung lobes appear most significant in the upper lobes and perihilar regions, unchanged. Impression: 1. Appropriately positioned intra-aortic balloon pump. 2. Similar mixed reticular and alveolar opacities most notable in the bilateral upper lobes and perihilar region. Electronically signed by: Richard Lopez II, D.O. XR Chest 1 Vw Portable Result Date: 05/02/2021 Narrative: EXAMINATION: XR CHEST 1 VIEW DATE: 05/01/2021 8:15 PM INDICATION: Hypoxia. COMPARISON: None. FINDINGS: No pneumothorax. No pleural effusion. Mixed reticular and alveolar opacities are demonstrated in all lung lobes but demonstrate an upper lobe and perihilar predominance. Findings may represent pulmonary edema on background of centrilobular emphysematous changes. Underlying infectious process not entirely excludable. Cardiac mediastinal silhouette is stable in appearance. No acute osseous abnormality. Impression: Mixed reticular and alveolar opacities are demonstrated in all lung lobes but demonstrate an upper lobe and perihilar predominance. Findings may represent pulmonary edema on background ofcentrilobular emphysematous changes. Electronically signed by: Richard Lopez II, D.O. Transthoracic Echo (TTE) Limited Result Date: 05/07/2021 Narrative: [place] [address] Limited Echocardiogram Report Patient Name: DEEPAK ALVARADO : 1960 StudyDate: 05/07/2021 12:16:52 PM Gender: M Tech: Location: [place] [address] Ref.Provider: RHINA GRANADOS Height(Cm): 175 BSA: 2.1 Weight(Kg): 91 Heart Rate: 82 BP: 127/44 Quality: Good Order Provider: Dr. Sutton Procedures: Echocardiographic Report: Limited transthoracic echocardiogram with 2D and M-Mode. Measurements: 2D/M Mode Measurement Value Normal Range LVIDd 2D 3.43 [ 4.20 -5.90 ] cm LVIDs 2D 2.59 [ 2.30 - 3.90 ] cm LVPWd 2D 1.01 [ 0.60 - 1.00 ] cm IVSd 2D 0.71 [ 0.60 - 0.90 ] cm Findings: Left Ventricle: Reduced left ventricular cavity size. Mild global left ventricular systolic dysfunction. Ejection fraction is measured at 42 %. These segments of the LV are hypokinetic: apical anterior segment. Pericardium: Trivial pericardial effusion. No echocardiographic evidence to suggest pericardial tamponade. Conclusions: Reduced left ventricular cavity size. Mild global left ventricular systolic dysfunction. Ejection fraction is measured at 42 %. These segments of the LV are hypokinetic: apical anterior segment. Trivial pericardial effusion. No echocardiographic evidence to suggest pericardial tamponade. Electronically Signed By: Gianni Francois MD, [facility] :54:09 STAFF FORESTER Transthoracic Echo Complete W Doppler/CF Result Date: 05/02/2021 Narrative: [place] [address] Echocardiogram Report Patient Name: DEEPAK ALVARADO W : 1960 Study Date: 05/02/2021 8:50:02 AM Gender: M Tech: Location: [place] [address] Ref Provider: NALINI CLAYTONHeight(Cm): 175 BSA: 2.11 Weight(Kg): 92 Heart Rate: 89 BP: 102/52 Quality: Good Order Provider: NALINI CLAYTON PROCEDURES: Echocardiographic Report: Transthoracic echocardiogram with complete 2D, M-Mode, and color Doppler examination. INDICATIONS: Free Text. Measurements: 2D/M Mode DopplerMeasurement Value Normal Range Measurement Value Normal Range EF Teich 2D 30.0 [ 55.0 - 70.0 ] percent CHRISTINA Vmax 2.04 [ 2.00 - 4.00 ] cm2 EF Mod 4C 42.2 [ 55.0 - 70.0 ] percent AV Mean PG 5 [ 2 - 4 ]mmHg LVIDd 2D 4.54 [ 4.20 - 5.90 ] cm AV Peak Ramehs 1.54 [ 1.00 - 1.70 ] m/s LVIDs 2D 3.91 [ 2.30 - 3.90 ] cm AV VTI 26.93 cm LVPWd 2D 0.92 [ 0.60 - 1.00 ] cm LVOT Diam 2.20 [ 1.70 - 2.10 ] cm IVSd 2D 0.76 [ 0.60 - 0.90 ] cm LVOT Peak Ramesh 0.83 [ 0.70 - 1.10 ] m/s LA Dimension MM 5.08 [ 3.00 - 4.00 ] cm LVOT VTI 13.82 [ 20.00 - 30.00 ] cm AoR Diam MM 4.12 [ 2.60 - 3.70 ] cm MV E Peak Ramesh 0.85 [ 0.60- 1.30 ] m/s LA Volume Index 20.83 [ 16.00 - 28.00 ] cc/m2 MV A Peak Ramesh 1.14 [ 1.00 - 1.20 ] m/s ACS MM 1.91 [ 1.50 - 2.60 ] cm MV Mean PG 1 [ <= 5 ] mmHg MV PHT 43 [ 20 - 100 ] msec MVA 2.20 MV Decel Time 137 [ 104 - 258 ] msec PV Peak Ramesh 1.10 [ 0.40 - 0.80 ] m/s TR Peak Ramesh 1.32 [ 1.00 - 2.80 ] m/s TR Peak PG 7 mmHg RVSP 16.93 [ 10.00 - 36.00 ] mmHg E' 0.06 E/E' 14.00 Measurement ValueNormal Range Measurement Value Normal Range 2D/M Mode Doppler - FINDINGS: Atrial Septum: Normal atrial septum. Left Ventricle: Normal left ventricular size. Left ventricle not well visualized. Thereis severe hypokinesis of the mid anteroseptal, anterior, and apical mancilla. Normal left ventricular wall thickness. Impaired diastolic relaxation Grade I. Ejection fraction is visually estimated at 40%. Left Atrium: The left atrium is normal in size. Right Ventricle: Normal right ventricular size. Normal right ventricular systolic function. Right Atrium: The right atrium is normal in size. Aortic Valve: Normal structure of the aortic valve. No evidence of hemodynamically significant aortic stenosis by Doppler. No aortic regurgitation. Mitral Valve: Normal structure of the mitral valve. Trivial regurgitation of the mitral valve. Pulmonic Valve: Pulmonic valve not well visualized. Trivial regurgitation in the pulmonic valve. Tricuspid Valve: Normal structure of the tricuspid valve. Trivial regurgitation in the tricuspid valve. Pericardium: Normal pericardium with no significant pericardial effusion. Aorta: Normal aortic root. IVC: Normal size and normal respiratory collapse consistent with normal right atrial pressure (<5 mmHg). CONCLUSIONS: Technically difficult study with limitedviews. Normal left ventricular size. Left ventricle not well visualized. There is severe hypokinesis of the mid anteroseptal, anterior, and apical mancilla. Normal left ventricular wall thickness. Impaired diastolic relaxation Grade I. Ejection fraction is visually estimated at 40 %. Normal right ventricular size. Normal right ventricular systolic function. Normal structure of the mitral valve. Trivi al regurgitation of the mitral valve. Normal structure of the tricuspid valve. Trivial regurgitation in the tricuspid valve. Electronically Signed By: Rylee Brito, , FACJustyna, VILMA, FAISAL 2021-05-02 14:07:25 STAFF FORESTER CC: CC: CC: ASSESSMENT/PLAN Hyponatremia from SIADH and possibly from zaroxylyn use. Work up for hyponatremia ongoing. PO FR. No normotonic fluids yet. Urine lytes and osm. If in clinical fluid overload, can use tolvaptan. Renal fn is better. Na better with loop diuresis, use PRN. Daily BMP. Na 130 and acceptable. Midodrine for hypotension. No med change by me today. NAGMA noted Start oral bicarb ?? Recent bladder tumor removal with hematuria. ?? -??Urology is following.H/H stable -Cysto vs conservative tx. -Voiding trial, hematuria has stopped. -Epistaxis Use nasal pillows. -CHF with decompensation Continue diuresis. RHC not done. Agree with Chandu. ?? Hypokalemia from diuresis. Replace PRN. ?? 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 COVID positive. Per protocol. On Remdisivir and Dex. ?? Syncopal episode -(+) orthostasis -receiving albumin -IV lasix was discontinued. ??There is a 1x order for zaroxolyn 10mg this am- recommend holding fornow. ??D/w RN ?? Coronary artery disease -s/p CABG post STEMI -??underwent four-vessel bypass ??MAE to the LAD, sequential saphenous vein graft to diagonal and obtuse marginal and a vein graft to the PDA. -s/p??low dose dobutamine -paced rhythm ?? Moderate LV dysfunction -s/p IV??lasix??and??low dose??dobutamine -Beta blockers, ??[place] once off dobutamine-would hold off adding given syncopal episode this am -repeat ECHO 11/18 EF 42% (see above) ?Nonsustained ventricular tachycardia -no recurrence of VT -K 3.7, Mg??2.0. ??Supplement to keep K >/= 4.0, Mg >/= 2.0 ?Diabetes mellitus -?on lantus and SSI ?? COPD: ?? -on?O2 NC??4L (dried blood to L nare humidified o2 ordered) ?? Dyslipidemia -?Continue atorvastatin. ?PAD -?Stable ? Anemia -Hb??11.4 (10.5)??(8.6) -monitor ?? I can be reached at [phone] with any concerns. Thank you Lc Simons MD for the consult. Yves Weinberg MD [employer] [phone] F FORESTER * Alejandro Gonzalez NP - 05/27/2021 12:41 PM CST [facility] Critical Care Medicine Daily Progress Subjective Patient is a 60 y.o. y/o male admitted on 05/01/2021 5:20 PM with the following indication(s) for ICU care - s/p CABG, now with COVID 19 viral pneumonia Interval History: - restarted Plavix > monitor for hematuria - reached out to Dr. Vance via [employer] and left a message asking him to see the patient - Optiflow weaned down to 35% & 45 liters - leukocytosis improved after starting broad spectrum antibiotics yesterday and the patient clinically looks better - stopped D10 - stopped low sodium portion of diet given hyponatremia w/ Na to 130 today HPI 60 year old male with copd, obesity, pvd, htn, hld, dm2 & CAD s/p multiple LAD stents who p/w anterior STEMI after bladder procedure on 04/29. [facility] was [facility] where they found in-stent thrombosis and an angioplasty was performed but stent could not be placed. A balloon pump was placed and the patient was transferred to the CVU. CT-surgery was consulted for CABG. The patie nt underwent a 4 vessel cabg on 05/04 w/ Dr. Granados (MAE->LAD, Saph vein->diag & obtuse, Saph->PDA). He developed rebleeding from his bladder tumor and this was adressed by urology. Heself extubated the next day after his CABG. His osorio was removed yesterday and he is currently post op day 11 from the CABG. He has been getting diuresed on the floor but has unfortunately had increasing oxygen requirement for the last 24 hours despite diuresis. He is currently on a non-rebreatherand being transferred to the ICU.?? Hospital Course 04/29 Cystoscopy [facility] 04/30 STEMI, [facility] -> instent thrombosis, angioplasty, IABP, transfer to [facility] 05/04/21: Increased blood clot from osorio and obstruction with pain.?? 05/05/21: Brief asystole o/n w turning. Stable after. Self extubated in AM.?? 05/06/21: NAEON. Maintained on CPAP and optiflow.?? 05/07/21: NAEON. Up in chair at time of exam. TTF 05/10 near syncopal episode 05/14 cystoscopy with clot removal and fulguration of bleeding 05/17 readmit to ICU with pulmonary edema, lasix drip 05/18 Nasal cannula, on/off pressors, Negative VQ, ACTH Stim unremarkable 05/19 COVID positive, 15 L/NC, Remdesivir, dexamethasone 05/21 coude catheter placed, remains on optiflow, updated 05/22 increase seroquel, on optiflow 40L 75% 05/23 HF meds started, Lasix 40mg 05/24 FiO2 at 60% 05/25 PE protocol 05/26 pneumonia PCR ++++, start Vancomycin and Cefepime 05/27: ID c/s, weaning Optiflow Scheduled Medications: albuterol HFA, 8 puff, inhalation, Q4H While awake (RT) aspirin, 81 mg, oral, Daily atorvastatin, 80 mg, oral, Nightly cefepime, 2,000 mg, intravenous, Q12H LEAH clopidogreL, 75 mg, oral, Daily dapagliflozin, 10 mg, oral, Daily dexAMETHasone, 6 mg, intravenous, Daily docusate sodium, 100 mg, oral, BID enoxaparin, 40 mg, subcutaneous, Daily-2100 insulin lispro, 0-10 Units, subcutaneous, TID with meals insulin lispro, 0-5 Units, subcutaneous, Nightly insulin lispro, 0.083 Units/kg, subcutaneous, TID with meals insulin NPH, 6 Units, subcutaneous, Q6H LEAH ivabradine, 5 mg, oral, BID with meals (bkfst, dinner) lidocaine, 1 patch, transdermal, Daily midodrine, 15 mg, oral, TID pantoprazole DR, 40 mg, oral, Daily QUEtiapine, 50 mg, oral, Nightly sodium chloride 0.9%, 0.5-20 mL, intra-catheter, Q8H LEAH spironolactone, 25 mg, oral, Daily tamsulosin, 0.4 mg, oral, Daily with dinner vancomycin, 15 mg/kg, intravenous, Q12H Continuous Medications: - n/a PRN Medications: ??? acetaminophen ? ? al & mag hydroxide lhdyvhjayjh-gdgmpmxlmikwlfy-rjbirurvb-nystatin ??? albuterol ??? dextrose OR dextrose ??? dextrose OR [DISCONTINUED] dextrose ??? glucagon ??? glucagon ??? guaiFENesin ??? ondansetron ??? polyethylene glycol Objective Vitals: Most Recent: Vitals: 05/27/21 1026 BP: Pulse: Resp: Temp: SpO2: 97% 24hr Min/Max: Temp Min: 36.6 ??C (97.8 ??F) Max: 36.6 ??C (97.9 ??F) Pulse Min: 67 Max: 99 BP Min: 95/59 Max: 123/75 Resp Min: 12 Max: 41 SpO2 Min: 92 % Max: 100 % LDA: PICC Double Lumen 05/18/21 Non-tunneled Power #1 Red, #2 Purple, Right Upper arm;Brachial (Active) Placement Date/Time: 05/18/21 1200 Catheter Time Out Checklist Completed: Yes Hand Hygiene Performed: Yes Site Prep: Alcohol;Betadine;Chlorhexidine Site Prep Agent has Completely Dried Before Insertion: Yes All 5 Sterile Barriers or Appropriate ... Number of days: 7 Urethral Catheter Coude (Active) Placement Date/Time: 05/21/21 1103 Inserted by: vanessa Catheter Type: Coude Tube Size (Fr.): 18 Fr Catheter Balloon Size: 5 mL Urine Returned: Yes Number of days: 4 Vent settings: FiO2 (%): [40 %-100 %] 40 % Hemodynamic parameters for last 24 hours: I/O: Date 05/26/21 07 - 05/27/21 0659 05/27/21 07 - 05/28/21 0659 Shift 24 Hour Total [id number] 24 Hour Total INTAKE P.O. 1300 1300 500 500 I.V.(mL/kg) 315(4) 315(4) Shift Total(mL/kg) 1300(16.4) 315(4) 1615(20.3) 500(6.3) 500(6.3) OUTPUT Urine(mL/kg/hr) 890(0.9) 520(0.5) 1410(0.7) 500 500 Shift Total(mL/kg) 890(11.2) 520(6.5) 1410(17.7) 500(6.3) 500(6.3) NET 410 -205 205 0 0 Weight (kg) 79.5 79.5 79.5 79.5 79.5 79.5 Physical Exam: General: ill appearing patient, frail Neurologic: awake, following commands, regarding examiner, interactive HEENT: PERRL, neck supple Cardiovascular: S1, S2; RRR Pulmonary: bilateral slightly coarse, respirations labored at times, Optiflow Abdomen: round, hypoactive bowel sounds, soft, NT/ND Extremities: warm, dry, +pulses, no edema Drains: Osorio catheter Skin: without rashes or lesions Lab/Radiology/Diagnostic Review: Laboratory review: Lab results in the last 24 hours: Recent Results (from the past 24 hour(s)) POCT glucose Collection Time: 05/26/21 1:19 PM Result Value Ref Range Glucose, POC 237 (H) 70 - 199 mg/dL MRSA Only (Staphylococcs aureus) PCR Nasal Collection Time: 05/26/21 1:31 PM Specimen: Nasal Result Value Ref Range PCR Scrn, Methicillin resistant Staphylococcus aureus (MRSA) Not Detected Not Detected Blood culture Blood Antecubital, left Collection Time: 05/26/21 1:43 PM Specimen: Antecubital, left; Blood Result Value Ref Range Report Preliminary Report: No growth to date. Blood culture Blood Antecubital, right Collection Time: 05/26/21 1:43 PM Specimen: Antecubital, right; Blood Result Value Ref Range Report Preliminary Report: No growth to date. Legionella antigen Urine Collection Time: 05/26/21 4:01 PM Specimen: Urine Result Value Ref Range Legionella Ag Negative Negative Strep pneumoniae antigen, urine Urine Collection Time: 05/26/21 4:01 PM Specimen: Urine Result Value Ref Range S. pneumoniae Ag Negative Negative Urinalysis reflex to microscopic Collection Time: 05/26/21 4:01 PM Result Value Ref Range Color, ur Yellow Yellow Clarity, ur Clear Clear Specific gravity, ur 1.028 1.003 - 1.030 pH, urine 7.0 Protein, ur ql Negative Negative Glucose, ur ql 3+ (A) Negative Ketones, ur Negative Negative Bilirubin, ur Negative Negative Blood, ur 2+ (A) Negative Urobilinogen, ur <2.0 <2.0 mg/dL Nitrite, ur Negative Negative Leukocyte esterase, ur 1+ (A) Negative UA reflex comment Reflex to microscopic UA will be performed. Urinalysis, microscopic only Collection Time: 05/26/21 4:01 PM Result Value Ref Range WBC, ur 11-20 (A) 0 - 5 /HPF RBC, ur >50 (A) 0 - 2 /HPF Bacteria, ur Trace (A) Yeast, ur 4+ (A) POCT glucose Collection Time: 05/26/21 5:03 PM Result Value Ref Range Glucose, POC 159 70 - 199 mg/dL POCT glucose Collection Time: 05/26/21 10:24 PM Result Value Ref Range Glucose, POC 93 70 - 199 mg/dL POCT glucose Collection Time: 05/27/21 12:41 AM Result Value Ref Range Glucose, POC 118 70 - 199 mg/dL Phosphorus Collection Time: 05/27/21 6:40 AM Result Value Ref Range Phosphorus, pl 3.0 2.3 - 4.5 mg/dL Magnesium Collection Time: 05/27/21 6:40 AM Result Value Ref Range Magnesium 1.7 1.4 - 2.5 mg/dL CBC without differential Collection Time: 05/27/21 6:40 AM Result Value Ref Range WBC 13.5 (H) 3.8 - 9.9 K/cumm Hgb 9.9 (L) 13.0 - 17.5 g/dL Hct 29.8 (L) 38.9 - 50.3 % Plt 519 (H) 150 - 400 K/cumm MPV 11.0 9.1 - 12.3 fL RBC 3.23 (L) 4.30 - 5.80 M/cumm MCV 92.3 81.3 - 96.4 fL MCH 30.7 27.1 - 33.3 pg MCHC 33.2 32.3 - 35.7 g/dL RDW CV 13.5 11.1 - 14.9 % RDW SD 45.3 35.7 - 48.1 fL NRBC abs 0.00 0.00 - 0.01 K/cumm Basic metabolic panel Collection Time: 05/27/21 6:40 AM Result Value Ref Range Sodium 130 (L) 135 - 145 mmol/L Potassium, pl 4.6 3.3 - 4.9 mmol/L Chloride 100 97 - 110 mmol/L CO2 20 (L) 22 - 32 mmol/L Anion gap 10 2 - 15 mmol/L BUN 22 8 - 25 mg/dL Creatinine 0.42 (L) 0.80 - 1.30 mg/dL Glucose 183 70 - 199 mg/dL Calcium 8.9 8.5 - 10.3 mg/dL eGFR Collection Time: 05/27/21 6:40 AM Result Value Ref Range eGFR 127 mL/min/1.73 m2 POCT glucose Collection Time: 05/27/21 6:47 AM Result Value Ref Range Glucose, POC 102 70 - 199 mg/dL POCT glucose Collection Time: 05/27/21 8:11 AM Result Value Ref Range Glucose, POC 87 70 - 199 mg/dL POCT glucose Collection Time: 05/27/21 12:19 PM Result Value Ref Range Glucose, POC 164 70 - 199 mg/dL Assessment/Plan NEURO: -encourage day/night cycle CV: #Acute Anterior STEMI with CAD s/p PCI to the LAD #HFrEF -s/p CABG x 4 with CTS, Dr. 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 - off both Amiodarone & dobutmaine - supportive care - keep electrolytes optimized PULM: #Acute Hypoxic Respiratory Failure: 2/2 Confirmed Positive COVID-19 viral pneumonia, worsened today Pulmonary Support: O2 Therapy: Supplemental oxygen O2 Del Method: High humidity nasal cannula i.e.Optiflow, Airvo FiO2 (%): 40 % O2 Flow Rate (L/min): 55 L/min FiO2 (%): 40 % - requiring Optiflow therapy with intermittent BiPAP 2/2 worsened respiratory distress - encourage aggressive pulmonary toilet - goal SPO2 > 88% - CT Chest PE protocol (05/25) = negative for PE, but with changes consistent with COVID 19 - COVID medical management - continue antibiotics and f/u ID recs Consults: Cuff Matcher & Infectious Disease Endo: #Hyperglycemia, labile blood glucose - frequent glucose checks, NPH/SSI - HgbA1c > 13 this admission - labile blood glucose, decrease NPH - stopped D10 as blood glucose has been stable Consults: Endocrinology GI: -Nutrition plan: Mechanical Soft, Consistent Carb + supplements RENAL: Lab Results Component Value Date CREATININE 0.42 (L) 05/27/2021 #History of gross hematuria s/p cystoscopy with clot evacuation and transurethral resection of bladder tumor at [place] - Plavix was on hold >>> resumed today > monitor for hematuria - Cystoscopy 05/14/21 with clot evacuation and fulguration for reported tumor - 05/21/21 Coude placed, keep Osorio catheter today 2/2 worsening hypoxia with exertion Date 05/26/21699 - 05/27/21 0659 05/27/21 07 - 05/28/21 0659 Shift [id number] 7135-7444 24 Hour Total 3897-1889 8166-9283 24 Hour Total INTAKE P.O. 1300 1300 500 500 I.V.(mL/kg) 315(4) 315(4) Shift Total(mL/kg) 1300(16.4) 315(4) 1615(20.3) 500(6.3) 500(6.3) OUTPUT Urine(mL/kg/hr) 890(0.9) 520(0.5) 1410(0.7) 500 500 Shift Total(mL/kg) 890(11.2) 520(6.5) 1410(17.7) 500(6.3) 500(6.3) NET 410 -205 205 0 0 Weight (kg) 79.5 79.5 79.5 79.5 79.5 79.5 HEME: Lab Results Component Value Date HGB 9.9 (L) 05/27/2021 #ABLA 2/2 surgical procedure, critical illness - no s/s active bleeding - no indication for transfusion - transfuse as indicated DVT prophylaxis: Lovenox ID: Lab Results Component Value Date WBC 13.5 (H) 05/27/2021 #Confirmed Positive COVID-19 pneumonia -Decadron x 10 days -Remdesivir course completed -spoke with CTS re: baricitinib, plan to start tonight, confirmed w/ Dr. Whiting --> discontinued this evening 2 pneumonia PCR +++ -trend WBC and fever curve -supportive COVID care #MRSA pneumonia, Moraxella, H Influenza #Leukocytosis - Vancomycin and Cefepime started 05/26 - re-consult ID team (left message for Dr Vance today on [employer]) - follow sensitivities - WBC trending down Culture Results: No flowsheet data found. Lab Results Component Value Date MICROBIOLOGY Preliminary Report: No growth to date. 05/26/2021 MICROBIOLOGY Preliminary Report: No growth to date. 05/26/2021 MICROBIOLOGY (.) 05/26/2021 Preliminary Report: Growth indicates upper respiratory tirso. MICROBIOLOGY (.) 05/05/2021 Final Report: Greater than or equal to 100,000 colonies/ml of Yeast Britta pneumonia is very rare and requires a histopathological diagnosis. The recovery of these organisms in routine culture, in most cases, only represents overgrowth of the organism secondary to antimicrobial therapy. Please contact the microbiology laboratory at [phone] if identification or susceptibility testing is clinically indicated. Access: Right brachial PICC (05/18) PPx: SCD, Lovenox Assessment and plan has been reviewed with attending, Dr. Jaja Gonzalez NP [phone], [place] [facility] in [facility] Department of Anesthesiology Division of Critical Care Medicine Cosigned by Dominique Wilkinson MD at 05/28/2021 2:16 PM STAFF FORESTER F FORESTER F FORESTER Associated attestation - Dominique Wilkinson MD - 05/28/2021 2:16 PM STAFF FORESTER I have seen and examined the patient on 05/27/21. I agree with or have edited the findings and plan of care as documented in the [place] note. G: Appears ill, more comfortable N: Awake, remains appropriately conversant CV: RRR, no JVD. Well healed sternum Resp: Coarse lungs bilaterally, requiring Optiflow support GI: Abd soft, nontender, nondistended : Osorio non bloody MSK: mild LE ext edema Int: no rashes Improving on antibiotics. Decreased support. Dominique Wilkinson MD Section of Acute and Critical Care Surgery Department of [facility] * Nalini Clayton MD - 05/27/2021 12:31 PM CST [facility] - Cardiology [facility] Progress Note Admit Date: 05/01/2021 5:20 PM @HDAYS@ PCP: Unknown, Notinfile Patient seen and examined Chart , telemtry reviewed Symptoms Patient denies chest pain, dyspnea, palpitations, sweating or syncope.On optiflo at lower O2 Data Vitals: 05/27/21 0530 05/27/21 0545 05/27/21 0734 05/27/21 1026 BP: 112/66 Pulse: 83 69 Resp: 18 15 Temp: TempSrc: SpO2: 93% 97% Weight: Height: Intake/Output Summary (Last 24 hours) at 05/27/2021 1231 Last data filed at 05/27/2021 1000 Gross per 24 hour Intake 1715 ml Output 1735 ml Net -20 ml Lab Results Component Value Date WBC 13.5 (H) 05/27/2021 WBC 14.0 (H) 05/26/2021 WBC 11.2 (H) 05/25/2021 HGB 9.9 (L) 05/27/2021 HGB 10.7 (L) 05/26/2021 HGB 10.0 (L) 05/25/2021 HCT 29.8 (L) 05/27/2021 HCT 32.6 (L) 05/26/2021 HCT 31.6 (L) 05/25/2021 Lab Results Component Value Date SODIUM 130 (L) 05/27/2021 SODIUM 136 05/26/2021 SODIUM 132 (L) 05/25/2021 POTASSIUM 4.6 05/27/2021 POTASSIUM 4.4 05/26/2021 POTASSIUM 4.2 05/25/2021 CHLORIDE 100 05/27/2021 CHLORIDE 101 05/26/2021 CHLORIDE 96 (L) 05/25/2021 CO2 20 (L) 05/27/2021 CO2 22 05/26/2021 CO2 23 05/25/2021 CREATININE 0.42 (L) 05/27/2021 CREATININE 0.48 (L) 05/26/2021 CREATININE 0.58 (L) 05/25/2021 GLUCOSE 164 05/27/2021 GLUCOSE 87 05/27/2021 GLUCOSE 102 05/27/2021 GLUCOSE 183 05/27/2021 GLUCOSE 77 05/26/2021 GLUCOSE 222 (H) 05/25/2021 CALCIUM 8.9 05/27/2021 CALCIUM 9.1 05/26/2021 CALCIUM 9.0 05/25/2021 No results found for: PTT No results found for: PT No results found for: INR No results found for: BNP No components found for: TROPONIN No results found for: CHOL, TRIG, HDL, LDLCALC No results found for: ALBUMIN, ALKPHOS, ALT, AST No components found for: MAGMGDL No results found for: TSH No results found for: T3FREE No results found for: B6ODEAZ Meds MEDICATIONS FOR CURRENT ENCOUNTER: SCHEDULED MEDICATIONS: Scheduled Medications Medication Dose Route Frequency ??? albuterol HFA (PROVENTIL HFA,VENTOLIN HFA,PROAIR HFA) 90 mcg/actuation inhaler 8 puff 8 puff inhalation Q4H While awake (RT) ??? aspirin enteric coated tablet 81 mg 81 mg oral Daily ??? atorvastatin (LIPITOR) tablet 80 mg 80 mg oral Nightly ??? cefepime (MAXIPIME) 2,000 mg in sodium chloride 0.9% 100 mL IVPB 2,000 mg intravenous Q12H LEAH ??? clopidogreL (PLAVIX) tablet 75 mg 75 mg oral Daily ??? dapagliflozin (FARXIGA) tablet 10 mg 10 mg oral Daily ??? dexAMETHasone (DECADRON) 4 mg/mL injection 6 mg 6 mg intravenous Daily ??? docusate sodium (COLACE) capsule 100 mg 100 mg oral BID ??? enoxaparin (LOVENOX) syringe 40 mg 40 mg subcutaneous Daily-2100 ??? insulin lispro (HumaLOG, ADMELOG) 100 unit/mL injection 0-10 Units 0-10 Units subcutaneous TID with meals ??? insulin lispro (HumaLOG, ADMELOG) 100 unit/mL injection 0-5 Units 0-5 Units subcutaneous Nightly ??? insulin lispro (HumaLOG, ADMELOG) 100 unit/mL injection 7 Units 0.083 Units/kg subcutaneous TIDwith meals ??? insulin NPH (HumuLIN N, NovoLIN N) 100 unit/mL injection 6 Units 6 Units subcutaneous Q6H LEAH ??? ivabradine (CORLANOR) tablet 5 mg 5 mg oral BID with meals (bkfst, dinner) ??? lidocaine (LIDODERM) 5 % patch 1 patch 1 patch transdermal Daily ??? midodrine (PROAMATINE) tablet 15 mg 15 mg oral TID ??? pantoprazole DR (PROTONIX) extended release tablet 40 mg 40 mg oral Daily ??? QUEtiapine (SEROquel) tablet 50 mg 50 mg oral Nightly ??? sodium chloride 0.9% flush 0.5-20 mL 0.5-20 mL intra-catheter Q8H LEAH ??? spironolactone (ALDACTONE) tablet 25 mg 25 mg oral Daily ??? tamsulosin (FLOMAX) extended release capsule 0.4 mg 0.4 mg oral Daily with dinner ??? vancomycin (VANCOCIN) 1,250 mg in sodium chloride 0.9% 250 mL IVPB 15 mg/kg intravenous Q12H ?? CONTINUOUS MEDICATIONS: Continuous Medications Medication Dose Last Rate ??? dextrose 10% infusion 10 mL/hr 10 mL/hr (05/26/21 1013) ? PRN MEDICATIONS: PRN Medications Medication Dose Route Frequency Last Admin ??? acetaminophen (TYLENOL) tablet 650 mg 650 mg oral Q6H PRN 650 mg at 05/21/21 1545 ? ? al & mag hydroxide oymqlvnsfph-fxxxvdzkyybhqjc-ekvqvrpsq-nystatin (MAGIC MOUTHWASH) suspension 1-1-1-1 20 mL swish & spit Q4H PRN ??? albuterol 2.5 mg /3 mL (0.083 %) nebulizer solution 2.5 mg 2.5 mg nebulization Q4H PRN (RT) 2.5mg at 05/17/21 0224 ??? dextrose oral liquid liquid 15 g 15 g oral Q15 Min PRN Or ??? dextrose (D10W) 10% bolus 250 mL 250 mL intravenous Q15 Min PRN ??? dextrose oral liquid liquid 15 g 15 g oral Q15 Min PRN ??? glucagon injection 1 mg 1 mg intramuscular Q30 Min PRN ??? glucagon injection 1 mg 1 mg intramuscular Q30 Min PRN ??? guaiFENesin (ROBITUSSIN) 20 mg/mL oral liquid 200 mg 200 mg oral QID PRN 200 mg at 05/25/21 2353 ??? ondansetron (ZOFRAN) injection 4 mg 4 mg intravenous Q6H PRN ??? polyethylene glycol (MIRALAX) packet 17 g 17 g oral Daily PRN 17 g at 05/27/21 0902 Allergies Allergen Reactions ??? Metoclopramide Review of Systems: All systems were reviewed. Pertinent positives are mentioned above. Exam Not done Assessment /Plan CAD + STEMI s/p CABG - Cardiac cath 05/01 with 40% distal LM, 100% prox LAD, 90% prox Cx, 50% prox and distal RCA - Echo 05/02 EF??37%, CABGx4 05/04/2021 - SR 80s on tele -Pro 2233 -CTS following ?? COVID 19 - dx 05/19/2021 - on Remdesivir and dexamethasone -on optiflow -pulmonology following ?? Acute Respiratory failure - Lung infiltrates per CXR on 05/19, completed Abx, COVID + - transferred to ICU 05/17 for increasing oxygen requirments - on Optiflow with decreased O2 requirements - Pulm following - CT PE negative ?? Hematuria - cysto 05/14 - resolved ?? Urinary retention -urology following ?? S/p Cardiogenic shock + Hypotension - off pressors -midodrine TID -BP improving ?? Hypokalemia - on K supplemented -??improved ?? Hx V. Fib - brief on 05/03 - treated w/ Amiodarone and Dobutamine gtt, resolved -4 beat episode of NSVT 05/23 ?? HLD - on Statin ? Nalini Clayton MD F FORESTER * Angelo Vance MD - 05/27/2021 10:52 AM CST Infectious Disease Deepak Alvarado Admit Date: 05/01/2021 LOS: 26 Days Clinical Course Os to see patient again for worsening respiratory status and increasing leukocytosis. Patient had respiratory PCR done which is positive for rhino virus. Started on antibiotics as patient's sputum culture shows MRSA and Moraxella on Gram stain New Symptoms Positive SOB, no Cp, no nvd, no rashes Data Vitals: 05/27/21 0530 05/27/21 0545 05/27/21 0734 05/27/21 1026 BP: 112/66 Pulse: 83 69 Resp: 18 15 Temp: TempSrc: SpO2: 93% 97% Weight: Height: Temp (24hrs), Av.6 ??C (97.9 ??F), Min:36.6 ??C (97.8 ??F), Max:36.7 ??C (98 ??F) Recent Labs Lab Units 05/27/21 0640 05/26/21 0623 05/25/21 0300 WBC K/cumm 13.5* 14.0* 11.2* HEMOGLOBIN g/dL 9.9* 10.7* 10.0* HEMATOCRIT % 29.8* 32.6* 31.6* PLATELETS K/cumm 519* 535* 459* Recent Labs Lab Units 05/27/21 0640 05/26/21 0623 05/26/21 0623 05/25/21 0300 05/25/21 0300 BUN SERUM mg/dL 22 -- 22 -- 24 CREATININE mg/dL 0.42* < > 0.48* < > 0.58* < > = values in this interval not displayed. Scheduled Meds:albuterol HFA, 8 puff, inhalation, Q4H While awake (RT) aspirin, 81 mg, oral, Daily atorvastatin, 80 mg, oral, Nightly cefepime, 2,000 mg, intravenous, Q12H LEAH clopidogreL, 75 mg, oral, Daily dapagliflozin, 10 mg, oral, Daily dexAMETHasone, 6 mg, intravenous, Daily docusate sodium, 100 mg, oral, BID enoxaparin, 40 mg, subcutaneous, Daily-2100 insulin lispro, 0-10 Units, subcutaneous, TID with meals insulin lispro, 0-5 Units, subcutaneous, Nightly insulin lispro, 0.083 Units/kg, subcutaneous, TID with meals insulin NPH, 6 Units, subcutaneous, Q6H LEAH ivabradine, 5 mg, oral, BID with meals (bkfst, dinner) lidocaine, 1 patch, transdermal, Daily midodrine, 15 mg, oral, TID pantoprazole DR, 40 mg, oral, Daily QUEtiapine, 50 mg, oral, Nightly sodium chloride 0.9%, 0.5-20 mL, intra-catheter, Q8H LEAH spironolactone, 25 mg, oral, Daily tamsulosin, 0.4 mg, oral, Daily with dinner vancomycin, 15 mg/kg, intravenous, Q12H Continuous Infusions:dextrose 10%, 10 mL/hr, Last Rate: 10 mL/hr (05/26/21 1013) PRN Meds:.??? acetaminophen ? ? al & mag hydroxide gxqymyfbuzj-yjkqpdgoxjkoylh-akcgqioti-nystatin ??? albuterol ??? dextrose OR dextrose ??? dextrose OR [DISCONTINUED] dextrose ??? glucagon ??? glucagon ??? guaiFENesin ??? ondansetron ??? polyethylene glycol Exam General appearance: alert, cooperative, no distress HEENT: (-)icterus, Oropharnyx is normal, NCAT Neck: No palpable LN Lungs: Course breath sounds and symmetric; minimal to moderate respiratory effort Heart: regular rhythm, normal S1 and S2, no m/r/g Abdomen: soft without mass, non-tender, +bowel sounds, no HSM Skin: (-)new rashes, no ulcerations MSK: no gross deformities, FROM Vascular: no Edema, pulses present bilaterally Neuro: No focal deficits Psych: Appropriate mood and affect ?? Cultures 05/02 COVID 19- 05/19 COVID 19 positive 05/26 blood cultures negative ?? 05/05 tracheal aspirate culture with yeast 05/26 pneumonia sputum culture PCR with Moraxella/Haemophilus/MRSA/rhino virus/enterovirus ?? Assessment: 1. Acute respiratory failure 2. COVID-19 infection 3. Status post CABG 4. Hematuria 5. Pneumonia 6. Rhino virus ?? Plan: 1. Continue treatment for COVID 2. Continue supportive care 3. Continue cefepime and vanc 4. Rhino virus may have been present on admission 5. Continue supportive care Angelo Vance MD 05/27/2021 F FORESTER F FORESTER * Lc Simons MD - 05/27/2021 10:34 AM CST Hospitalist Progress Note Name: Deepak Alvarado Admission Date: 05/01/2021 Today's Date: 05/27/2021 Subjective: Pt seen and examined Clinical course: Overall pt condition has improved. Still on 4L per NC today 05/16: feels ok today, on 5L per NC 05/17: transferred to ICU for worsening respiratory distress requiring more O2 05/20: remains in the ICU, on Optiflow today 05/21: about the same today, Optiflow 05/22: still on Optiflow, back on Insulin gtt 05/23: no major changes , still on Optiflow 05/24: remains on Optiflow 05/25: about the same 05/26: optiflow, back on antibiotics 05/27: Patient remains on OptiFlow. No events overnight. Patient appears comfortable Objective: Vitals: 05/27/21 0530 05/27/21 0545 05/27/21 0734 05/27/21 1026 BP: 112/66 Pulse: 83 69 Resp: 18 15 Temp: TempSrc: SpO2: 93% 97% Weight: Height: Wt Readings from Last 3 Encounters: 05/23/21 79.5 kg (175 lb 4.3 oz) 08/27/13 114.3 kg (252 lb) 10/19/12 111.6 kg (246 lb) I/O last 3 completed shifts: In: 1615 [P.O.:1300; I.V.:315] Out: 2069 [Urine:2069] I/O this shift: In: 500 [P.O.:500] Out: 500 [Urine:500] Scheduled Meds Current Facility-Administered Medications Medication Dose Route Frequency Provider Last Rate Last Admin ??? acetaminophen (TYLENOL) tablet 650 mg 650 mg oral Q6H PRN Eleonora Duatre NP 650 mg at 05/21/21 1545 ? ? al & mag hydroxide sqxeusgkicv-kymvuzstxvrcyqc-swngjaqsu-nystatin (MAGIC MOUTHWASH) suspension 1-1-1-1 20 mL swish & spit Q4H PRN Elena Kelly NP ??? albuterol 2.5 mg /3 mL (0.083 %) nebulizer solution 2.5 mg 2.5 mg nebulization Q4H PRN (RT) Ralf Tomlinson MD 2.5 mg at 05/17/21 0224 ??? albuterol HFA (PROVENTIL HFA,VENTOLIN HFA,PROAIR HFA) 90 mcg/actuation inhaler 8 puff 8 puff inhalation Q4H While awake (RT) Ralf Tomlinson MD 8 puff at 05/27/21 0734 ??? aspirin enteric coated tablet 81 mg 81 mg oral Daily Varsha Crowder NP 81 mg at 05/27/21 0903 ??? atorvastatin (LIPITOR) tablet 80 mg 80 mg oral Nightly Rhina Granados MD 80 mg at 05/26/21 2216 ??? cefepime (MAXIPIME) 2,000 mg in sodium chloride 0.9% 100 mL IVPB 2,000 mg intravenous Q12H LEAH Rhina Granados MD 200 mL/hr at 05/27/21902 2,000 mg at 05/27/21902 ??? clopidogreL (PLAVIX) tablet 75 mg 75 mg oral Daily Alejandro Gonzalez NP 75 mg at ??? dapagliflozin (FARXIGA) tablet 10 mg 10 mg oral Daily Stephen Melgar MD 10 mg at 05/27/21902 ??? dexAMETHasone (DECADRON) 4 mg/mL injection 6 mg 6 mg intravenous Daily Silviano Huddleston NP 6 mg at 05/27/21902 ??? dextrose oral liquid liquid 15 g 15 g oral Q15 Min PRN Silviano Huddleston NP Or ??? dextrose (D10W) 10% bolus 250 mL 250 mL intravenous Q15 Min PRN Silviano Huddleston NP ??? dextrose 10% infusion 10 mL/hr intravenous Continuous Rosy Muñoz NP 10 mL/hr at 05/26/21 1013 10 mL/hr at 05/26/21 1013 ??? dextrose oral liquid liquid 15 g 15 g oral Q15 Min PRN Anibal Lara MD ??? docusate sodium (COLACE) capsule 100 mg 100 mg oral BID Rhina Granados MD 100 mg at 05/27/21902 ??? enoxaparin (LOVENOX) syringe 40 mg 40 mg subcutaneous Daily-2100 Rhina Granados MD 40 mg at107/27/20 2216 ??? glucagon injection 1 mg 1 mg intramuscular Q30 Min PRN Anibal Lara MD ??? glucagon injection 1 mg 1 mg intramuscular Q30 Min PRN Silviano Huddleston NP ??? guaiFENesin (ROBITUSSIN) 20 mg/mL oral liquid 200 mg 200 mg oral QID PRN Caleb Toth PA 200 mg at 05/25/21 2353 ??? insulin lispro (HumaLOG, ADMELOG) 100 unit/mL injection 0-10 Units 0-10 Units subcutaneous TID with meals Silviano Huddleston NP 2 Units at 05/26/21 1716 ??? insulin lispro (HumaLOG, ADMELOG) 100 unit/mL injection 0-5 Units 0-5 Units subcutaneous Nightly Silviano Huddleston NP 1 Units at 05/25/212102 ??? insulin lispro (HumaLOG, ADMELOG) 100 unit/mL injection 7 Units 0.083 Units/kg subcutaneous TIDwith meals Silviano Huddleston NP 7 Units at 05/27/21904 ??? insulin NPH (HumuLIN N, NovoLIN N) 100 unit/mL injection 6 Units 6 Units subcutaneous Q6H [facility] Rosy Muñzo NP 6 Units at 05/27/21 0036 ??? ivabradine (CORLANOR) tablet 5 mg 5 mg oral BID with meals (bkfst, dinner) Stephen Melgar MD 5mg at 05/27/21902 ??? lidocaine (LIDODERM) 5 % patch 1 patch 1 patch transdermal Daily Rosy Muñoz NP0 mL/hr at 05/26/21 2240 1 patch at 05/27/21901 ??? midodrine (PROAMATINE) tablet 15 mg 15 mg oral TID Silviano Huddleston NP 15 mg at 05/27/21902 ??? ondansetron (ZOFRAN) injection 4 mg 4 mg intravenous Q6H PRN Rhina Granados MD ??? pantoprazole DR (PROTONIX) extended release tablet 40 mg 40 mg oral Daily Rhina Granados MD40 mg at 05/27/21902 ??? polyethylene glycol (MIRALAX) packet 17 g 17 g oral Daily PRN Rhina Granados MD 17 g at 05/27/21901 ??? QUEtiapine (SEROquel) tablet 50 mg 50 mg oral Nightly Silviano Huddleston, EFREN 50 mg at ??? sodium chloride 0.9% flush 0.5-20 mL 0.5-20 mL intra-catheter Q8H [facility] Rhina Granados MD 10 mL at 05/27/21701 ??? spironolactone (ALDACTONE) tablet 25 mg 25 mg oral Daily Stephen Melgar MD 25 mg at 05/27/21902 ??? tamsulosin (FLOMAX) extended release capsule 0.4 mg 0.4 mg oral Daily with dinner Elena Kelly ESCROW CLERK 0.4 mg at 05/26/21 1715 ??? vancomycin (VANCOCIN) 1,250 mg in sodium chloride 0.9% 250 mL IVPB 15 mg/kg intravenous Q12H Rosy Mñuoz, EFREN 262.5 mL/hr at 05/27/21 0036 1,250 mg at 05/27/21 0036 dextrose 10%, 10 mL/hr, Last Rate: 10 mL/hr (05/26/21 1013) ??? acetaminophen ? ? al & mag hydroxide oihozwhkojh-ebfbzwibrgqeaar-qoizylzna-nystatin ??? albuterol ??? dextrose OR dextrose ??? dextrose OR [DISCONTINUED] dextrose ??? glucagon ??? glucagon ??? guaiFENesin ??? ondansetron ??? polyethylene glycol Physical Exam: General: alert, cooperative, no distress, appears stated age HEENT: Head:normacephalic, Eyes: Perrla, EOMI bilaterally, nasal and oral mucosal pink and moist Heart: normal rate, regular rhythm, normal S1, S2, no murmurs, rubs, clicks or gallops Lungs: clear to auscultation, no wheezes or rales and unlabored breathing Abdomen: soft, nontender, nondistended, no masses or organomegaly Extremities: peripheral pulses normal, no pedal edema, no clubbing or cyanosis Neuro: alert, oriented x 3, no defects noted in general exam. Lab Data Laboratory review: Chemistry CMP: Lab Results Component Value Date BUNSER 22 05/27/2021 CALCIUM 8.9 05/27/2021 CO2 20 (L) 05/27/2021 CHLORIDE 100 05/27/2021 CREATININE 0.42 (L) 05/27/2021 GLUCOSE 87 05/27/2021 GLUCOSE 183 05/27/2021 POTASSIUM 4.6 05/27/2021 SODIUM 130 (L) 05/27/2021 , CBC: Lab Results Component Value Date WBC 13.5 (H) 05/27/2021 RBC 3.23 (L) 05/27/2021 HGB 9.9 (L) 05/27/2021 HCT 29.8 (L) 05/27/2021 MCV 92.3 05/27/2021 MCH 30.7 05/27/2021 MCHC 33.2 05/27/2021 RDWCV 13.5 05/27/2021 RDWSD 45.3 05/27/2021 MPV 11.0 05/27/2021 NRBCABS 0.00 05/27/2021 , Coags: No results found for: PT, PTT, APTT, FFN, FIBRINOGEN, INR, ACTIVATEDCL, Lipids: No results found for: CHOL, CHLPL, HDL, LDLCALC, TRIG, CHOLHDL, Cardiac Enzymes: No results found for: CKTOTAL, CKMB, CKMBINDEX, TROPONINT and POC Glucose: Lab Results Component Value Date GLUCOSE 87 05/27/2021 GLUCOSE 183 05/27/2021 Home Medications have been reviewed and updated on pt's list Assessment and Plan Acute resp failure - self ext 05/05/21 -Lung infiltrates - pulm vascular congestion/CHF, and suspected pneumonia - completed Zosyn -COVID19 (+) 05/19 -started on Decadron and Remdesivir 05/19 -PRN IV Lasix -pt cont on Optiflow - wean as tolerated -pulmonology follows -per cards added Farxiga, Aldactone, and Corlanor 05/23 -back on antibiotics with Cefepime and Vancomycin Near syncope/Syncope episode, probable vaso vagal, stable at this time-monitor ?? Acute anterior STEMI with CAD , s/p PCI to LAD -s/p CABG x 4 05/04 given re thrombosis of existing stents -s/p IABP, removed 05/06 - ASA, ??statins, off Plavix due to hematuria, BBs on hold due to hypotension ?? Post CABG cardiogenic shock, hypotensive again - s/p??Dobutamine gtt and Levophed -now on Midodrine ?? Ventricular fibrillation - briefly on 05/03 - treated with Amiodarone and Dobutamine gtt, off them now ?? Gross Hematuria ?- in a pt with hx of ??cystoscopy, -clot evacuation and transurethral resection of bladder tumor at [facility] -s/p 20??German three way catheter -holding Plavix -cysto 05/14 with clot evacuation and fulguration ? Type 2 diabetes.??- SSI proocol ?? Acute blood loss anemia ; -s/p PRBC transfusions in ICU - monitor HH ?? Mild hyponatremia, monitor ?? Hx of ??Tobacco use. ?? DVT prophylaxis :Lovenox Pt will need continued inpatient management for the above medical issues. Code status: full Lc Simons MD [facility] Hospitalist 05/27/2021 10:34 AM F FORESTER * Varsha Lee NP - 05/27/2021 9:45 AM CST Cardiothoracic Surgery Progress Note Deepak Alvarado 1960 Hospital DAY#26 23 days postop Urgent Coronary Artery Bypass Graft x4 Subjective: Resting in bed. No acute issues overnight. OBJECTIVE: Vitals: Temp: [36.6 ??C (97.8 ??F)-36.7 ??C (98 ??F)] 36.6 ??C (97.8 ??F) Pulse: [67-99] 69 BP: (95-123)/(55-77) 112/66 Resp: [12-41] 15 SpO2: [91 %-100 %] 97 % FiO2 (%): [40 %-100 %] 40 % Wt Readings from Last 3 Encounters: 05/23/21 79.5 kg (175 lb 4.3 oz) 08/27/13 114.3 kg (252 lb) 10/19/12 111.6 kg (246 lb) I/O last 2 completed shifts: In: 1615 [P.O.:1300; I.V.:315] Out: 1410 [Urine:1410] Physical Exam Vitals and nursing note reviewed. Constitutional: General: He is not in acute distress. Appearance: Normal appearance. HENT: Head: Normocephalic and atraumatic. Nose: Nose normal. Mouth/Throat: Pharynx: Oropharynx is clear. Eyes: Conjunctiva/sclera: Conjunctivae normal. Cardiovascular: Rate and Rhythm: Normal rate and regular rhythm. Heart sounds: No murmur heard. Comments: NSR 95 Pulmonary: Effort: Pulmonary effort is normal. Tachypnea present. No accessory muscle usage. Breath sounds: Decreased breath sounds present. Abdominal: Palpations: Abdomen is soft. Musculoskeletal: Cervical back: Neck supple. Right lower leg: No edema. Left lower leg: No edema. Skin: General: Skin is warm and dry. Comments: Sternal incision is well healed and approximated Sternum is stable to cough Rt SVG site HOME CARE PROVIDER with steri-strips C/D/I Neurological: General: No focal deficit present. Mental Status: He is alert and oriented to person, place, and time. Psychiatric: Mood and Affect: Mood normal. Access: picc Recent Labs Lab Units 05/27/21 0640 05/26/21 0623 05/25/21 0300 WBC K/cumm 13.5* 14.0* 11.2* HEMOGLOBIN g/dL 9.9* 10.7* 10.0* HEMATOCRIT % 29.8* 32.6* 31.6* PLATELETS K/cumm 519* 535* 459* Recent Labs Lab Units 05/27/21 0640 05/26/21 0623 05/25/21 0300 SODIUM mmol/L 130* 136 132* POTASSIUM PLASMA mmol/L 4.6 4.4 4.2 CHLORIDE mmol/L 100 101 96* CO2 mmol/L 20* 22 23 BUN SERUM mg/dL 22 22 24 CREATININE mg/dL 0.42* 0.48* 0.58* CALCIUM mg/dL 8.9 9.1 9.0 Recent Labs Lab Units 05/25/21 0951 PH ART 7.47* PCO2 ART mmHg 32* PO2 ART mmHg 72* BASE EXC ART mmol/L 0 Drips: None Imaging: Today's CXR: Continued patchy infiltrates. Assessment and Plan: 60 y.o. male 23 Days Post-Op s/p urgent Coronary Artery Bypass Graft x4 by Dr. Granados CVS: No acute issues over night. Blood gas 05/25/21 7.47/32/72 Pulm: Continued optiflow. Pulmonology following. CoVID (+) 05/19/2021--started on Remdesivir and IVsteroids. CCP believes he has additional viral infections. Cefepime/Vanc started GI: Bowel Regimen. Regular diet +supplements. Renal: BUN/Scr 22/0.48 ID: ID following. Continue remdesivir and IV steroids. D/L/T: PICC Prophylaxis: Protonix and Lovenox Dispo: ICU, LTAC? Varsha Lee NP Cardiothoracic [facility] [place] C: [phone] [facility] [employer] Cosigned by Rhina Granados MD at 05/29/2021 1:44 PM STAFF FORESTER F FORESTER F FORESTER * Yves Weinberg MD - 05/26/2021 8:36 PM CST Nephrology Progress Note [facility] SUBJECTIVE 05/26/21 Doing fair. Appears comfortable. Some dyspnea. All labs and data reviewed. Na and Cr stable. Good UO. 05/25/21 Doing fair. All labs reviewed. Renal fn nl. Na 132. Overall slowly improving. 05/24/21 Pt seen/examined. All labs and data reviewed. Getting IV lasix PRN. Na 133, lytes and renal fn stable. 05/23/21 Pt seen/examined. All labs reviewed. Receiving K phos. BP soft, on hi dose midodrine. Na 132. I gave lasix 40 iv times 1 for falling UO. Remains in ICU. 05/22/21 Pt seen/examined. All labs and data reviewed. Na 134, Cr 0.62. Dyspnea better. Eager to go home but remains in ICU. Stable renal fn and lytes. OK for loop diuretics PRN. Avoid thiazides. 05/21/21 Pt seen/examined. All labs reviewed. Off lasix drip. Still dyspneic. Renal fn better. Na 135. 05/20/21 Pt seen/examined. All labs and data reviewed. COVID pos. On Dex and remdisivir. On lasix drip. Na 130, Cr 1.44. 05/19 Cr 1.41 Na 130. Started on Corlanor. Appears stable. BP remains very soft. UO not accurate. 05/17 Transferred to ICU for hi O2 requirements. Has left nostril epistaxis. On low dose pressors and lasix and insulin drip. Na 128, should improve with loop diuresis. Cr 1.2. 05/16 Creatinine stable and sodium trending up.On IV lasix,lytes wnl.Osorio out,having some problems with retention- nurses in contact with urology,doing bladder scans. 05/15/21 Doing fair. Osorio out. Has not voided yet. Na 131 with loop diuresis and improved. All labs and data reviewed. Excellent UO. Doing fair. Some flank pain and mild dyspnea. Na 127 and a little lower. BP better. Agreeable to cysto, but urology planning on conservative tx. Will start loop diuresis. OBJECTIVE Vitals: Vitals: 05/26/21 1651 05/26/21 1700 05/26/21 1800 05/26/211999 BP: 111/75 BP Location: Patient Position: Pulse: 82 Resp: 24 Temp: TempSrc: SpO2: 100% 97% 94% 94% Weight: Height: Intake/Output Summary (Last 24 hours) at 05/26/20212035 Last data filed at 05/26/2021 1700 Gross per 24 hour Intake 400 ml Output 1415 ml Net -1015 ml REVIEW OF SYSTEMS Review of Systems Epistaxis, dyspnea. Constitutional: Negative. HENT: Negative. Eyes: Negative. Respiratory: Negative. Cardiovascular: Negative. Gastrointestinal: Negative. Genitourinary: Negative. Musculoskeletal: Negative. Skin: Negative. Allergic/Immunologic: Negative. Hematological: Negative. All other systems reviewed and are negative. PHYSICAL EXAM Physical Exam Constitutional: Appears well-developed. O2 on HENT: wnl Head: Normocephalic. Eyes: Pupils are equal, round, and reactive to light. Neck: Normal range of motion. Neck supple. Cardiovascular: Normal rate. Pulmonary/Chest: Effort normal and breath sounds normal. Abdominal: Soft. NT,active BS Musculoskeletal: Normal range of motion. Neurological: Alert, oriented. Skin: Skin is warm. Nursing note and vitals reviewed. MEDICATIONS Current Facility-Administered Medications: ??? acetaminophen (TYLENOL) tablet 650 mg, 650 mg, oral, Q6H PRN, Eleonora Duarte NP, 650 mg at 05/21/21 1545 ? ? al & mag hydroxide zxfoyghrmta-gnplwqapfgwlaew-bxclflelk-nystatin (MAGIC MOUTHWASH) suspension 1-1-1-1, 20 mL, swish & spit, Q4H PRN, Elena Kelly NP ??? albuterol 2.5 mg /3 mL (0.083 %) nebulizer solution 2.5 mg, 2.5 mg, nebulization, Q4H PRN (RT),Ralf Tomlinson MD, 2.5 mg at 05/17/21 0224 ??? albuterol HFA (PROVENTIL HFA,VENTOLIN HFA,PROAIR HFA) 90 mcg/actuation inhaler 8 puff, 8 puff, inhalation, Q4H While awake (RT), Ralf Tomlinson MD, 8 puff at 05/26/21 1651 ??? aspirin enteric coated tablet 81 mg, 81 mg, oral, Daily, Varsha Crowder NP, 81 mg at 05/26/21 1011 ??? atorvastatin (LIPITOR) tablet 80 mg, 80 mg, oral, Nightly, Rhina Granados MD, 80 mg at 05/25/212104 ??? cefepime (MAXIPIME) 2,000 mg in sodium chloride 0.9% 100 mL IVPB, 2,000 mg, intravenous, Q12H LEAH, Rhina Granados MD, Last Rate: 200 mL/hr at 05/26/21 1546, 2,000 mg at 05/26/21 1546 ??? dapagliflozin (FARXIGA) tablet 10 mg, 10 mg, oral, Daily, Stephen Melgar MD, 10 mg at ??? dexAMETHasone (DECADRON) 4 mg/mL injection 6 mg, 6 mg, intravenous, Daily, Silviano Huddleston NP, 6 mg at 05/26/21 1011 ??? dextrose oral liquid liquid 15 g, 15 g, oral, Q15 Min PRN OR dextrose (D10W) 10% bolus 250 mL, 250 mL, intravenous, Q15 Min PRN, Silviano Huddleston NP ??? dextrose 10% infusion, 10 mL/hr, intravenous, Continuous, Rosy Muñoz NP, Last Rate: 10 mL/hr at 05/26/21 1013, 10 mL/hr at 05/26/21 1013 ??? dextrose oral liquid liquid 15 g, 15 g, oral, Q15 Min PRN OR [DISCONTINUED] dextrose (D10W)10% bolus 250 mL, 250 mL, intravenous, Q15 Min PRN, Anibal Lara MD ??? docusate sodium (COLACE) capsule 100 mg, 100 mg, oral, BID, 100 mg at 05/26/21 1011 OR [DISCONTINUED] docusate (COLACE) 10 mg/mL oral liquid 100 mg, 100 mg, feeding tube, BID, Rhina Granados MD, 100 mg at 05/05/21 0842 ??? enoxaparin (LOVENOX) syringe 40 mg, 40 mg, subcutaneous, Daily-2100, Rhina Granados MD, 40 mg at 05/25/212104 ??? glucagon injection 1 mg, 1 mg, intramuscular, Q30 Min PRN, Anibal Lara MD ??? glucagon injection 1 mg, 1 mg, intramuscular, Q30 Min PRN, Silviano Huddleston NP ??? guaiFENesin (ROBITUSSIN) 20 mg/mL oral liquid 200 mg, 200 mg, oral, QID PRN, Caleb Toth PA, 200 mg at 05/25/21 2353 ??? insulin lispro (HumaLOG, ADMELOG) 100 unit/mL injection 0-10 Units, 0-10 Units, subcutaneous, TID with meals, Silviano Huddleston NP, 2 Units at 05/26/21 1716 ??? insulin lispro (HumaLOG, ADMELOG) 100 unit/mL injection 0-5 Units, 0-5 Units, subcutaneous, Nightly, Silviano Huddleston NP, 1 Units at 05/25/212102 ??? insulin lispro (HumaLOG, ADMELOG) 100 unit/mL injection 7 Units, 0.083 Units/kg, subcutaneous, TID with meals, Silviano Huddleston NP, 7 Units at 05/26/21 1717 ??? insulin NPH (HumuLIN N, NovoLIN N) 100 unit/mL injection 6 Units, 6 Units, subcutaneous, Q6H LEAH, Rosy Muñoz NP, 6 Units at 05/26/21 1721 ??? ivabradine (CORLANOR) tablet 5 mg, 5 mg, oral, BID with meals (bkfst, dinner), Stephen Melgar MD, 5 mg at 05/26/21 1715 ??? lidocaine (LIDODERM) 5 % patch 1 patch, 1 patch, transdermal, Daily, Rosy Muñoz, EFREN, Last Rate: 0 mL/hr at 05/25/217, 1 patch at 05/26/21 1011 ??? midodrine (PROAMATINE) tablet 15 mg, 15 mg, oral, TID, Silviano Huddleston NP, 15 mg at 05/26/21 1546 ??? ondansetron (ZOFRAN) injection 4 mg, 4 mg, intravenous, Q6H PRN, Rhina Granados MD ??? pantoprazole DR (PROTONIX) extended release tablet 40 mg, 40 mg, oral, Daily, Rhina Granados MD, 40 mg at 05/26/21 1011 ??? polyethylene glycol (MIRALAX) packet 17 g, 17 g, oral, Daily PRN, Rhina Granados MD ??? QUEtiapine (SEROquel) tablet 50 mg, 50 mg, oral, Nightly, Silviano Huddleston NP, 50 mg at 05/25/21 2105 ??? sodium chloride 0.9% flush 0.5-20 mL, 0.5-20 mL, intra-catheter, Q8H LEAH, Rhina Granados MD, 20 mL at 05/26/21 1400 ??? spironolactone (ALDACTONE) tablet 25 mg, 25 mg, oral, Daily, Stephen Melgar MD, 25 mg at 05/26/21 1011 ??? tamsulosin (FLOMAX) extended release capsule 0.4 mg, 0.4 mg, oral, Daily with dinner, Elena Kelly NP, 0.4 mg at 05/26/21 1715 ??? [START ON 05/27/2021] vancomycin (VANCOCIN) 1,250 mg in sodium chloride 0.9% 250 mL IVPB, 15 mg/kg, intravenous, Q12H, Rosy Muñoz NP Lab/Radiology/Diagnostic Review: Recent Results (from the past 24 hour(s)) POCT glucose Collection Time: 05/25/21 11:59 PM Result Value Ref Range Glucose, POC 101 70 - 199 mg/dL Phosphorus Collection Time: 05/26/21 6:23 AM Result Value Ref Range Phosphorus, pl 3.7 2.3 - 4.5 mg/dL Magnesium Collection Time: 05/26/21 6:23 AM Result Value Ref Range Magnesium 2.1 1.4 - 2.5 mg/dL CBC without differential Collection Time: 05/26/21 6:23 AM Result Value Ref Range WBC 14.0 (H) 3.8 - 9.9 K/cumm Hgb 10.7 (L) 13.0 - 17.5 g/dL Hct 32.6 (L) 38.9 - 50.3 % Plt 535 (H) 150 - 400 K/cumm MPV 11.6 9.1 - 12.3 fL RBC 3.56 (L) 4.30 - 5.80 M/cumm MCV 91.6 81.3 - 96.4 fL MCH 30.1 27.1 - 33.3 pg MCHC 32.8 32.3 - 35.7 g/dL RDW CV 13.5 11.1 - 14.9 % RDW SD 44.8 35.7 - 48.1 fL NRBC abs 0.00 0.00 - 0.01 K/cumm Basic metabolic panel Collection Time: 05/26/21 6:23 AM Result Value Ref Range Sodium 136 135 - 145 mmol/L Potassium, pl 4.4 3.3 - 4.9 mmol/L Chloride 101 97 - 110 mmol/L CO2 22 22 - 32 mmol/L Anion gap 13 2 - 15 mmol/L BUN 22 8 - 25 mg/dL Creatinine 0.48 (L) 0.80 - 1.30 mg/dL Glucose 77 70 - 199 mg/dL Calcium 9.1 8.5 - 10.3 mg/dL D-dimer, quantitative Collection Time: 05/26/21 6:23 AM Result Value Ref Range D-Dimer 3,194 (H) <=499 ng/mL FEU CRP (acute phase) Collection Time: 05/26/21 6:23 AM Result Value Ref Range CRP 16.0 (H) <=10.0 mg/L eGFR Collection Time: 05/26/21 6:23 AM Result Value Ref Range eGFR 121 mL/min/1.73 m2 POCT glucose Collection Time: 05/26/21 6:32 AM Result Value Ref Range Glucose, POC 74 70 - 199 mg/dL POCT glucose Collection Time: 05/26/21 8:42 AM Result Value Ref Range Glucose, POC 95 70 - 199 mg/dL Pneumonia PCR with aerobic culture and Gram stain Sputum Lung Collection Time: 05/26/21 11:32 AM Specimen: Lung; Sputum Result Value Ref Range Direct Specimen Exam (.) Molecular Analysis: Greater than or equal to 10^7 copies/mL Moraxella catarrhalis 10^5 copies/mL Haemophilus influenzae 10^4 copies/mL Staphylococcus aureus Methicillin resistant Staphylococcus aureus (MRSA) detected by molecular analysis. Correlation of molecular analysis with final culture results is recommended. Direct Specimen Exam Stain: Few polymorphonuclear leukocytes seen. Few squamous epithelial cells seen. Abundant mixed bacterial tirso seen on Gram stain. Pneumonia PCR Sputum Lung Collection Time: 05/26/21 11:32 AM Specimen: Lung; Sputum Result Value Ref Range C. pneumoniae DNA Not Detected Not Detected Legionella pneumophila DNA Not Detected Not Detected M. pneumoniae DNA Not Detected Not Detected Adenovirus DNA Not Detected Not Detected Coronavirus (229E, OC43, HKU1, NL63) RNA Not Detected Not Detected Metapneumovirus RNA Not Detected Not Detected Rhinovirus/Enterovirus RNA Detected (A) Not Detected Influenza A RNA Not Detected Not Detected Influenza B RNA Not Detected Not Detected Parainfluenza virus (1-4) RNA Not Detected Not Detected RSV RNA Not Detected Not Detected POCT glucose Collection Time: 05/26/21 1:19 PM Result Value Ref Range Glucose, POC 237 (H) 70 - 199 mg/dL MRSA Only (Staphylococcs aureus) PCR Nasal Collection Time: 05/26/21 1:31 PM Specimen: Nasal Result Value Ref Range PCR Scrn, Methicillin resistant Staphylococcus aureus (MRSA) Not Detected Not Detected Legionella antigen Urine Collection Time: 05/26/21 4:01 PM Specimen: Urine Result Value Ref Range Legionella Ag Negative Negative Strep pneumoniae antigen, urine Urine Collection Time: 05/26/21 4:01 PM Specimen: Urine Result Value Ref Range S. pneumoniae Ag Negative Negative Urinalysis reflex to microscopic Collection Time: 05/26/21 4:01 PM Result Value Ref Range Color, ur Yellow Yellow Clarity, ur Clear Clear Specific gravity, ur 1.028 1.003 - 1.030 pH, urine 7.0 Protein, ur ql Negative Negative Glucose, ur ql 3+ (A) Negative Ketones, ur Negative Negative Bilirubin, ur Negative Negative Blood, ur 2+ (A) Negative Urobilinogen, ur <2.0 <2.0 mg/dL Nitrite, ur Negative Negative Leukocyte esterase, ur 1+ (A) Negative UA reflex comment Reflex to microscopic UA will be performed. Urinalysis, microscopic only Collection Time: 05/26/21 4:01 PM Result Value Ref Range WBC, ur 11-20 (A) 0 - 5 /HPF RBC, ur >50 (A) 0 - 2 /HPF Bacteria, ur Trace (A) Yeast, ur 4+ (A) POCT glucose Collection Time: 05/26/21 5:03 PM Result Value Ref Range Glucose, POC 159 70 - 199 mg/dL Recent Labs Lab Units 05/26/21 1601 CLARITY U Clear COLOR U Yellow KETONES UR Negative NITRITE UR Negative SPEC GRAV U 1.028 UROBILINOGEN UR mg/dL <2.0 WBC UR QT /HPF 11-20* XR Chest 1 View - Portable - in AM Result Date: 05/11/2021 Narrative: EXAMINATION: XR CHEST 1 VIEW HISTORY: The patient is a 60-year-old male who has had cardiac surgery. Comparison made with the previous study dated 05/10/2021. TECHNIQUE: AP portable view of the chest. FINDINGS: Lungs clear. Heart not enlarged. Aortic atherosclerosis. No failure. The right IJ [place] catheter has been retracted with its tip in the distal superior vena cava. Impression: IMPRESSION: No failure. Electronically signed by: Elvira Blackman M.D. XR Chest 1 View - Portable - in AM Result Date: 05/10/2021 Narrative: EXAMINATION: XR CHEST 1 VIEW DATE: 05/10/2021 2:40 AM COMPARISON: 05/09/2021 HISTORY: 60-year-old man cardiac surgery follow-up FINDINGS:Compared with study the previous day, significant improvement. There is cardiomegaly with postsurgical changes with continued and decreasing failure. Bibasilar atelectasis with left pleural fluid decreasing. No pneumothorax. [place] catheter remainsin place Impression: Decreasing failure, atelectasis and left effusion. Electronically signed by: Deandre Lomeli M.D. XR Chest 1 View - Portable - in AM Result Date: 05/09/2021 Narrative: EXAMINATION: XR CHEST 1 VIEW DATE: 05/09/2021 4:10 AM HISTORY: 60-year-old man cardiac surgery follow-up FINDINGS:Compared with study the previous day, significant improvement. There is cardiomegaly with postsurgical changes with continued but decreasing failure. Bibasilar atelectasis with left pleural fluid decreasing. No pneumothorax. [place] catheter remains in place Impression: Decreasing failure, atelectasis and left effusion. Electronically signed by: Deandre Lomeli M.D. XR Chest 1 View - Portable - in AM Result Date: 05/08/2021 Narrative: EXAMINATION: XR CHEST 1 VIEW DATE: 05/08/2021 4:15 AM HISTORY: 60-year-old man cardiac surgery follow-up FINDINGS:Compared with study the previous day, significant improvement. There is cardiomegaly with postsurgical changes with continued but decreasing failure. Bibasilar atelectasis with left pleural fluid. No pneumothorax. [place] catheter remains in place Impression: Decreasing failure. No pneumothorax. Electronically signed by: Deacon Cummings M.D. XR Chest 1 View - Portable - in AM Result Date: 05/07/2021 Narrative: EXAMINATION: XR CHEST 1 VIEW DATE: 05/07/2021 3:55 AM HISTORY: 60-year-old man follow-upcardiac surgery FINDINGS:Compared with study of the previous day, postsurgical changes in the heartand mediastinum with cardiomegaly are stable. [place] catheter remains in place. Left thoracostomy tube remains in place. No pneumothorax. Pulmonary vascular congestion with interstitial lung disease remain prominent. Impression: Persistent prominent interstitial lung disease with failure. Electronically signed by: Deacon Cummings M.D. XR Chest 1 View - Portable - in AM Result Date: 05/06/2021 Narrative: EXAMINATION: XR CHEST 1 VIEW DATE: 05/06/2021 4:05 AM INDICATION: Cardiac surgery. COMPARISON: 05/05/2021. FINDINGS: No pneumothorax or pleural effusion. Similar-appearing pulmonary vascular congestion and interstitial opacities most notable in the bilateral upper lobes consistent with pulmonary edema. Pulmonary catheter catheter, left thoracostomy tube, and mediastinal drain are appropriately position. Intra-aortic balloon pump is appropriately positioned. Interval removal of endotracheal tube. Impression: 1. Interval removal of endotracheal tube. Remaining tubes and lines are appropriately positioned. 2. Similar-appearing cardiomegaly, pulmonary vascular congestion, and prominent bilateralinterstitial markings suggestive of interstitial pulmonary edema. Electronically signed by: Richard Zhao II, D.O. XR Chest 1 View - Portable - in AM Result Date: 05/05/2021 Narrative: EXAMINATION: XR CHEST 1 VIEW DATE: 05/05/2021 4:15 AM HISTORY: 60-year-old man cardiac surgery follow-up FINDINGS:Compared with the study of the prior day, tubes and catheters remain satisfactorily positioned. Worsening pulmonary vascular congestive changes are seen. Cardiomegaly with postsurgical changes stable. No pneumothorax. Impression: Increasing failure. Electronically signed by: Deacon Cummings M.D. XR Chest 1 Vw Portable Result Date: 05/05/2021 Narrative: EXAMINATION: XR CHEST 1 VIEW DATE: 05/04/2021 8:40 PM HISTORY: 60-year-old man coronary artery bypass follow-up FINDINGS:Compared with the study of earlier the same day, postsurgical changes now evident within the heart and mediastinum with cardiomegaly. Interval placement of endotracheal tube, nasogastric tube, [place] catheter, left thoracostomy tube and mediastinal drain all in satisfactory position. No pneumothorax. Interstitial lung disease with mild pulmonary vascular congestive changes. Aortic balloon pump is no longer seen. Impression: Tube placements with postsurgical changes with cardiomegaly with interstitial lung disease and mild failure with no pneumothorax. Electronically signed by: Deacon Cummings M.D. XR Chest 1 Vw Portable Result Date: 05/04/2021 Narrative: EXAMINATION: XR CHEST 1 VIEW DATE: 05/04/2021 9:05 AM HISTORY: Coronary artery disease FINDINGS:Comparison is made with study of 2 days earlier. Cardiomegaly, COPD with interstitial lung disease stable. Mild failure. Aortic balloon pump stable in position at the proximal descending aorta. No pneumothorax. No new infiltrates. Impression: Stable appearance. COPD cardiomegaly, with mild failure suspected. Electronically signed by: Deacon Cummings M.D. XR Chest 1 Vw Portable Result Date: 05/02/2021 Narrative: EXAMINATION: XR CHEST 1 VIEW DATE: 05/02/2021 5:15 AM INDICATION: Intra-aortic balloon pump. COMPARISON: 05/01/2021. FINDINGS: Appropriately positioned intra-aortic balloon pump appears unchanged. No pneumothorax or pleural effusion. Mixed reticular and alveolar opacities demonstrated inall lung lobes appear most significant in the upper lobes and perihilar regions, unchanged. Impression: 1. Appropriately positioned intra-aortic balloon pump. 2. Similar mixed reticular and alveolar opacities most notable in the bilateral upper lobes and perihilar region. Electronically signed by: Richard Lopez II, D.O. XR Chest 1 Vw Portable Result Date: 05/02/2021 Narrative: EXAMINATION: XR CHEST 1 VIEW DATE: 05/01/2021 8:15 PM INDICATION: Hypoxia. COMPARISON: None. FINDINGS: No pneumothorax. No pleural effusion. Mixed reticular and alveolar opacities are demonstrated in all lung lobes but demonstrate an upper lobe and perihilar predominance. Findings may represent pulmonary edema on background of centrilobular emphysematous changes. Underlying infectious process not entirely excludable. Cardiac mediastinal silhouette is stable in appearance. No acute osseous abnormality. Impression: Mixed reticular and alveolar opacities are demonstrated in all lung lobes but demonstrate an upper lobe and perihilar predominance. Findings may represent pulmonary edema on background ofcentrilobular emphysematous changes. Electronically signed by: Richard Lopez II, D.O. Transthoracic Echo (TTE) Limited Result Date: 05/07/2021 Narrative: [place] [address] Limited Echocardiogram Report Patient Name: DEEPAK ALVARADO : 1960 StudyDate: 05/07/2021 12:16:52 PM Gender: M Tech: Location: [place] [address] Ref.Provider: RHINA GRANADOS Height(Cm): 175 BSA: 2.1 Weight(Kg): 91 Heart Rate: 82 BP: 127/44 Quality: Good Order Provider: Dr. Sutton Procedures: Echocardiographic Report: Limited transthoracic echocardiogram with 2D and M-Mode. Measurements: 2D/M Mode Measurement Value Normal Range LVIDd 2D 3.43 [ 4.20 -5.90 ] cm LVIDs 2D 2.59 [ 2.30 - 3.90 ] cm LVPWd 2D 1.01 [ 0.60 - 1.00 ] cm IVSd 2D 0.71 [ 0.60 - 0.90 ] cm Findings: Left Ventricle: Reduced left ventricular cavity size. Mild global left ventricular systolic dysfunction. Ejection fraction is measured at 42 %. These segments of the LV are hypokinetic: apical anterior segment. Pericardium: Trivial pericardial effusion. No echocardiographic evidence to suggest pericardial tamponade. Conclusions: Reduced left ventricular cavity size. Mild global left ventricular systolic dysfunction. Ejection fraction is measured at 42 %. These segments of the LV are hypokinetic: apical anterior segment. Trivial pericardial effusion. No echocardiographic evidence to suggest pericardial tamponade. Electronically Signed By: Ginani Francois MD, [facility] :54:09 STAFF FORESTER Transthoracic Echo Complete W Doppler/CF Result Date: 05/02/2021 Narrative: [place] [address] Echocardiogram Report Patient Name: DEEPAK ALVARADO W : 1960 Study Date: 05/02/2021 8:50:02 AM Gender: M Tech: Location: [place] [address] Ref Provider: NALINI CLAYTONHeight(Cm): 175 BSA: 2.11 Weight(Kg): 92 Heart Rate: 89 BP: 102/52 Quality: Good Order Provider: NALINI CLAYTON PROCEDURES: Echocardiographic Report: Transthoracic echocardiogram with complete 2D, M-Mode, and color Doppler examination. INDICATIONS: Free Text. Measurements: 2D/M Mode DopplerMeasurement Value Normal Range Measurement Value Normal Range EF Teich 2D 30.0 [ 55.0 - 70.0 ] percent CHRISTINA Vmax 2.04 [ 2.00 - 4.00 ] cm2 EF Mod 4C 42.2 [ 55.0 - 70.0 ] percent AV Mean PG 5 [ 2 - 4 ] mmHg LVIDd 2D 4.54 [ 4.20 - 5.90 ] cm AV Peak Ramesh 1.54 [ 1.00 - 1.70 ] m/s LVIDs 2D 3.91 [ 2.30 - 3.90 ] cm AV VTI 26.93 cm LVPWd 2D 0.92 [ 0.60 - 1.00 ] cm LVOT Diam 2.20 [ 1.70 - 2.10 ] cm IVSd 2D 0.76 [ 0.60 - 0.90 ] cm LVOT Peak Ramesh 0.83 [ 0.70 - 1.10 ] m/s LA Dimension MM 5.08 [ 3.00 - 4.00 ] cm LVOT VTI 13.82 [ 20.00 - 30.00 ] cm AoR Diam MM 4.12 [ 2.60 - 3.70 ] cm MV E Peak Ramesh 0.85 [ 0.60 - 1.30 ] m/s LA Volume Index 20.83 [ 16.00 - 28.00 ] cc/m2 MV A Peak Ramesh 1.14 [ 1.00 - 1.20 ] m/s ACS MM 1.91 [ 1.50 - 2.60 ] cm MV Mean PG 1 [ <= 5 ] mmHg MV PHT 43 [ 20 - 100 ] msec MVA 2.20 MV Decel Time 137 [ 104 - 258 ] msec PV Peak Ramesh 1.10 [ 0.40 - 0.80 ] m/s TR Peak Ramesh 1.32 [ 1.00 - 2.80 ] m/s TR Peak PG 7 mmHg RVSP 16.93 [ 10.00 - 36.00 ] mmHg E' 0.06 E/E' 14.00 Measurement Value Normal Range Measurement Value Normal Range 2D/M Mode Doppler - FINDINGS: Atrial Septum: Normal atrial septum. Left Ventricle: Normal left ventricular size. Left ventricle not well visualized. There is severe hypokinesis of the mid anteroseptal, anterior, and apical mancilla. Normal left ventricular wall thickness. Impaired diastolic relaxation Grade I. Ejection fraction is visually estimated at 40 %. Left Atrium: The left atrium is normal in size. Right Ventricle: Normal right ventricular size. Normal right ventricular systolic function. Right Atrium: The right atrium is normal in size. Aortic Valve: Normal structure of the aortic valve. No evidence of hemodynamically significant aortic stenosis by Doppler. No aortic regurgitation. Mitral Valve: Normal structure of the mitral valve. Trivial regurgitation of the mitral valve. Pulmonic Valve: Pulmonic valve not well visualized. Trivial re gurgitation in the pulmonic valve. Tricuspid Valve: Normal structure of the tricuspid valve. Trivial regurgitation in the tricuspid valve. Pericardium: Normal pericardium with no significant pericardial effusion. Aorta: Normal aortic root. IVC: Normal size and normal respiratory collapse consistentwith normal right atrial pressure (<5 mmHg). CONCLUSIONS: Technically difficult study with limited views. Normal left ventricular size. Left ventricle not well visualized. There is severe hypokinesis of the mid anteroseptal, anterior, and apical mancilla. Normal left ventricular wall thickness. Impaired diastolic relaxation Grade I. Ejection fraction is visually estimated at 40 %. Normal right ventricular size. Normal right ventricular systolic function. Normal structure of the mitral valve. Trivial regurgitation of the mitral valve. Normal structure of the tricuspid valve. Trivial regurgitation in the tricuspid valve. Electronically Signed By: Rylee Brito, , FACJustyna, [place], [facility] 2021-05-02 14:07:25 STAFF FORESTER CC: CC: CC: ASSESSMENT/PLAN Hyponatremia from SIADH and possibly from zaroxylyn use. Work up for hyponatremia ongoing. PO FR. No normotonic fluids yet. Urine lytes and osm. If in clinical fluid overload, can use tolvaptan. Renal fn is better. Na better with loop diuresis, use PRN. Daily BMP. Na 136 and acceptable. Midodrine for hypotension. No med change by me today. ?? Recent bladder tumor removal with hematuria. ?? -??Urology is following.H/H stable -Cysto vs conservative tx. -Voiding trial, hematuria has stopped. -Epistaxis Use nasal pillows. -CHF with decompensation Continue diuresis. RHC not done. Agree with Chandu. ?? Hypokalemia from diuresis. Replace PRN. ?? 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 COVID positive. Per protocol. On Remdisivir and Dex. ?? Syncopal episode -(+) orthostasis -receiving albumin -IV lasix was discontinued. ??There is a 1x order for zaroxolyn 10mg this am- recommend holding fornow. ??D/w RN ?? Coronary artery disease -s/p CABG post STEMI -??underwent four-vessel bypass ??MAE to the LAD, sequential saphenous vein graft to diagonal and obtuse marginal and a vein graft to the PDA. -s/p??low dose dobutamine -paced rhythm ?? Moderate LV dysfunction -s/p IV??lasix??and??low dose??dobutamine -Beta blockers, ??[place] once off dobutamine-would hold off adding given syncopal episode this am -repeat ECHO 05/07 EF 42% (see above) ?Nonsustained ventricular tachycardia -no recurrence of VT -K 3.7, Mg??2.0. ??Supplement to keep K >/= 4.0, Mg >/= 2.0 ?Diabetes mellitus -?on lantus and SSI ?? COPD: ?? -on?O2 NC??4L (dried blood to L nare humidified o2 ordered) ?? Dyslipidemia -?Continue atorvastatin. ?PAD -?Stable ? Anemia -Hb??11.4 (10.5)??(8.6) -monitor ?? I can be reached at [phone] with any concerns. Thank you Rhina Granados MD for the consult. Yves Weinberg MD [employer] [phone] F FORESTER * Rosy Muñoz NP - 05/26/2021 4:40 PM CST [facility] Critical Care Medicine Daily Progress Team: Community AM Subjective Patient is a 60 y.o. y/o male admitted on 05/01/2021 5:20 PM with the following indication(s) for ICU care - s/p CABG, now with COVID 19 viral pneumonia Interval History: PE protocol negative 05/25 Worsening COVID pneumonia Okay to resume Plavix from cardiovascular standpoint, reach out to Dr. Trejo in setting of recent gross hematuria Started Vanc and Cefepime, sam culture, sputum culture grossly positive --> re- consult ID team -discussed with patient, possible need for intubation, and then subsequent tracheostomy, patient remains a Full Code HPI 60 year old male with copd, obesity, pvd, htn, hld, dm2 & CAD s/p multiple LAD stents who p/w anterior STEMI after bladder procedure on 04/29. [facility] where they found in-stent thrombosis and an angioplasty was performed but stent could not be placed. A balloon pump was placed and the patient was transferred to the CVU. CT-surgery was consulted for CABG. The patie nt underwent a 4 vessel cabg on 05/04 w/ Dr. Granados (MAE->LAD, Saph vein->diag & obtuse, Saph->PDA). He developed rebleeding from his bladder tumor and this was adressed by urology. Heself extubated the next day after his CABG. His osorio was removed yesterday and he is currently post op day 11 from the CABG. He has been getting diuresed on the floor but has unfortunately had increasing oxygen requirement for the last 24 hours despite diuresis. He is currently on a non-rebreatherand being transferred to the ICU.?? Hospital Course 04/29 Cystoscopy at [facility] 04/30 STEMI, [facility] -> instent thrombosis, angioplasty, IABP, transfer to [facility] 05/04/21: Increased blood clot from osorio and obstruction with pain.?? 05/05/21: Brief asystole o/n w turning. Stable after. Self extubated in AM.?? 05/06/21: NAEON. Maintained on CPAP and optiflow.?? 05/07/21: NAEON. Up in chair at time of exam. TTF 05/10 near syncopal episode 05/14 cystoscopy with clot removal and fulguration of bleeding 05/17 readmit to ICU with pulmonary edema, lasix drip 05/18 Nasal cannula, on/off pressors, Negative VQ, ACTH Stim unremarkable 05/19 COVID positive, 15 L/NC, Remdesivir, dexamethasone 05/21 coude catheter placed, remains on optiflow, updated 05/22 increase seroquel, on optiflow 40L 75% 05/23 HF meds started, Lasix 40mg 05/24 FiO2 at 60% 05/25 PE protocol 05/26 pneumonia PCR ++++, start Vancomycin and Cefepime Scheduled Medications: albuterol HFA, 8 puff, inhalation, Q4H While awake (RT) aspirin, 81 mg, oral, Daily atorvastatin, 80 mg, oral, Nightly cefepime, 2,000 mg, intravenous, Q12H LEAH dapagliflozin, 10 mg, oral, Daily dexAMETHasone, 6 mg, intravenous, Daily docusate sodium, 100 mg, oral, BID enoxaparin, 40 mg, subcutaneous, Daily-2100 insulin lispro, 0-10 Units, subcutaneous, TID with meals insulin lispro, 0-5 Units, subcutaneous, Nightly insulin lispro, 0.083 Units/kg, subcutaneous, TID with meals insulin NPH, 6 Units, subcutaneous, Q6H LEAH ivabradine, 5 mg, oral, BID with meals (bkfst, dinner) lidocaine, 1 patch, transdermal, Daily midodrine, 15 mg, oral, TID pantoprazole DR, 40 mg, oral, Daily QUEtiapine, 50 mg, oral, Nightly sodium chloride 0.9%, 0.5-20 mL, intra-catheter, Q8H LEAH spironolactone, 25 mg, oral, Daily tamsulosin, 0.4 mg, oral, Daily with dinner [START ON 05/27/2021] vancomycin, 15 mg/kg, intravenous, Q12H Continuous Medications: dextrose 10%, 10 mL/hr, Last Rate: 10 mL/hr (05/26/21 1013) PRN Medications: ??? acetaminophen ? ? al & mag hydroxide xtfppewllrp-kjyxggwqyzmvpco-blviqxlmr-nystatin ??? albuterol ??? dextrose OR dextrose ??? dextrose OR [DISCONTINUED] dextrose ??? glucagon ??? glucagon ??? guaiFENesin ??? ondansetron ??? polyethylene glycol Objective Vitals: Most Recent: Vitals: 05/26/21 1700 BP: 111/75 Pulse: 82 Resp: 24 Temp: SpO2: 24hr Min/Max: Temp Min: 36.5 ??C (97.7 ??F) Max: 36.7 ??C (98.1 ??F) Pulse Min: 68 Max: 101 BP Min: 97/68 Max: 131/74 Resp Min: 13 Max: 40 SpO2 Min: 88 % Max: 100 % LDA: PICC Double Lumen 05/18/21 Non-tunneled Power #1 Red, #2 Purple, Right Upper arm;Brachial (Active) Placement Date/Time: 05/18/21 1200 Catheter Time Out Checklist Completed: Yes Hand Hygiene Performed: Yes Site Prep: Alcohol;Betadine;Chlorhexidine Site Prep Agent has Completely Dried Before Insertion: Yes All 5 Sterile Barriers or Appropriate ... Number of days: 7 Urethral Catheter Coude (Active) Placement Date/Time: 05/21/21 1103 Inserted by: vanessa Catheter Type: Coude Tube Size (Fr.): 18 Fr Catheter Balloon Size: 5 mL Urine Returned: Yes Number of days: 4 Vent settings: FiO2 (%): [55 %-100 %] 55 % Hemodynamic parameters for last 24 hours: I/O: Date 05/25/211899 - 05/26/2165805/26/21699 - 05/27/2159 Shift 5329-6336 24 Hour Total 4391-6254 1906-0997 24 Hour Total INTAKE P.O. 0 785 400 400 Shift Total(mL/kg) 0(0) 785(9.9) 400(5) 400(5) OUTPUT Urine(mL/kg/hr) 660 1425 815(0.9) 815 Shift Total(mL/kg) 660(8.3) 1425(17.9) 815(10.3) 815(10.3) NET -660 -640 -415 -415 Weight (kg) 79.5 79.5 79.5 79.5 79.5 Physical Exam: General: ill appearing patient, frail Neurologic: awake, following commands, regarding examiner, interactive HEENT: PERRL, neck supple Cardiovascular: S1, S2; RRR Pulmonary: bilateral slightly coarse, respirations labored at times, Optiflow and BiPAP as needed Abdomen: round, hypoactive bowel sounds, soft, NT/ND Extremities: warm, dry, +pulses, no edema Drains: Osorio catheter Skin: without rashes or lesions Lab/Radiology/Diagnostic Review: Laboratory review: Lab results in the last 24 hours: Recent Results (from the past 24 hour(s)) POCT glucose Collection Time: 05/25/21 8:15 PM Result Value Ref Range Glucose, POC 192 70 - 199 mg/dL POCT glucose Collection Time: 05/25/21 11:59 PM Result Value Ref Range Glucose, POC 101 70 - 199 mg/dL Phosphorus Collection Time: 05/26/21 6:23 AM Result Value Ref Range Phosphorus, pl 3.7 2.3 - 4.5 mg/dL Magnesium Collection Time: 05/26/21 6:23 AM Result Value Ref Range Magnesium 2.1 1.4 - 2.5 mg/dL CBC without differential Collection Time: 05/26/21 6:23 AM Result Value Ref Range WBC 14.0 (H) 3.8 - 9.9 K/cumm Hgb 10.7 (L) 13.0 - 17.5 g/dL Hct 32.6 (L) 38.9 - 50.3 % Plt 535 (H) 150 - 400 K/cumm MPV 11.6 9.1 - 12.3 fL RBC 3.56 (L) 4.30 - 5.80 M/cumm MCV 91.6 81.3 - 96.4 fL MCH 30.1 27.1 - 33.3 pg MCHC 32.8 32.3 - 35.7 g/dL RDW CV 13.5 11.1 - 14.9 % RDW SD 44.8 35.7 - 48.1 fL NRBC abs 0.00 0.00 - 0.01 K/cumm Basic metabolic panel Collection Time: 05/26/21 6:23 AM Result Value Ref Range Sodium 136 135 - 145 mmol/L Potassium, pl 4.4 3.3 - 4.9 mmol/L Chloride 101 97 - 110 mmol/L CO2 22 22 - 32 mmol/L Anion gap 13 2 - 15 mmol/L BUN 22 8 - 25 mg/dL Creatinine 0.48 (L) 0.80 - 1.30 mg/dL Glucose 77 70 - 199 mg/dL Calcium 9.1 8.5 - 10.3 mg/dL D-dimer, quantitative Collection Time: 05/26/21 6:23 AM Result Value Ref Range D-Dimer 3,194 (H) <=499 ng/mL FEU CRP (acute phase) Collection Time: 05/26/21 6:23 AM Result Value Ref Range CRP 16.0 (H) <=10.0 mg/L eGFR Collection Time: 05/26/21 6:23 AM Result Value Ref Range eGFR 121 mL/min/1.73 m2 POCT glucose Collection Time: 05/26/21 6:32 AM Result Value Ref Range Glucose, POC 74 70 - 199 mg/dL POCT glucose Collection Time: 05/26/21 8:42 AM Result Value Ref Range Glucose, POC 95 70 - 199 mg/dL Pneumonia PCR with aerobic culture and Gram stain Sputum Lung Collection Time: 05/26/21 11:32 AM Specimen: Lung; Sputum Result Value Ref Range Direct Specimen Exam (.) Molecular Analysis: Greater than or equal to 10^7 copies/mL Moraxella catarrhalis 10^5 copies/mL Haemophilus influenzae 10^4 copies/mL Staphylococcus aureus Methicillin resistant Staphylococcus aureus (MRSA) detected by molecular analysis. Correlation of molecular analysis with final culture results is recommended. Direct Specimen Exam Stain: Few polymorphonuclear leukocytes seen. Few squamous epithelial cells seen. Abundant mixed bacterial tirso seen on Gram stain. Pneumonia PCR Sputum Lung Collection Time: 05/26/21 11:32 AM Specimen: Lung; Sputum Result Value Ref Range C. pneumoniae DNA Not Detected Not Detected Legionella pneumophila DNA Not Detected Not Detected M. pneumoniae DNA Not Detected Not Detected Adenovirus DNA Not Detected Not Detected Coronavirus (229E, OC43, HKU1, NL63) RNA Not Detected Not Detected Metapneumovirus RNA Not Detected Not Detected Rhinovirus/Enterovirus RNA Detected (A) Not Detected Influenza A RNA Not Detected Not Detected Influenza B RNA Not Detected Not Detected Parainfluenza virus (1-4) RNA Not Detected Not Detected RSV RNA Not Detected Not Detected POCT glucose Collection Time: 05/26/21 1:19 PM Result Value Ref Range Glucose, POC 237 (H) 70 - 199 mg/dL MRSA Only (Staphylococcs aureus) PCR Nasal Collection Time: 05/26/21 1:31 PM Specimen: Nasal Result Value Ref Range PCR Scrn, Methicillin resistant Staphylococcus aureus (MRSA) Not Detected Not Detected Legionella antigen Urine Collection Time: 05/26/21 4:01 PM Specimen: Urine Result Value Ref Range Legionella Ag Negative Negative Strep pneumoniae antigen, urine Urine Collection Time: 05/26/21 4:01 PM Specimen: Urine Result Value Ref Range S. pneumoniae Ag Negative Negative Urinalysis reflex to microscopic Collection Time: 05/26/21 4:01 PM Result Value Ref Range Color, ur Yellow Yellow Clarity, ur Clear Clear Specific gravity, ur 1.028 1.003 - 1.030 pH, urine 7.0 Protein, ur ql Negative Negative Glucose, ur ql 3+ (A) Negative Ketones, ur Negative Negative Bilirubin, ur Negative Negative Blood, ur 2+ (A) Negative Urobilinogen, ur <2.0 <2.0 mg/dL Nitrite, ur Negative Negative Leukocyte esterase, ur 1+ (A) Negative UA reflex comment Reflex to microscopic UA will be performed. Urinalysis, microscopic only Collection Time: 05/26/21 4:01 PM Result Value Ref Range WBC, ur 11-20 (A) 0 - 5 /HPF RBC, ur >50 (A) 0 - 2 /HPF Bacteria, ur Trace (A) Yeast, ur 4+ (A) POCT glucose Collection Time: 05/26/21 5:03 PM Result Value Ref Range Glucose, POC 159 70 - 199 mg/dL Assessment/Plan NEURO: -encourage day/night cycle CV: #Acute anterior STEMI with CAD s/p PCI to the LAD #HFrEF -s/p CABG x 4 with CTS, Dr. 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 -supportive care PULM: #Acute Hypoxic Respiratory Failure: 2/2 Confirmed Positive COVID-19 viral pneumonia, worsened today Pulmonary Support: O2 Therapy: Supplemental oxygen O2 Del Method: High humidity nasal cannula i.e.Optiflow, Airvo FiO2 (%): 55 % O2 Flow Rate (L/min): 55 L/min FiO2 (%): 55 % -requiring Optiflow therapy with intermittent BiPAP 2/2 worsened respiratory distress -encourage aggressive pulmonary toilet -goal SPO2 > 88% -STAT PE protocol CT scan completed 05/25/21 2/2 hypoxia, negative, + COVID 19 changes -COVID medical management -start empiric antibiotic therapy today, de-escalate based on susceptibilities Consults: Cuff Matcher Endo: #Hyperglycemia, labile blood glucose -frequent glucose checks, NPH/SSI -HgbA1c > 13 this admission -labile blood glucose, decrease NPH, and adjust D10 as indicated Consults: Endocrinology GI: -Nutrition plan: ADAT, encourage PO intake RENAL: Lab Results Component Value Date CREATININE 0.48 (L) 05/26/2021 #History of gross hematuria s/p cystoscopy with clot evacuation and transurethral resection of bladder tumor at [place] -Plavix on hold, likely can resume, verify with Dr. Trejo in the AM -Cystoscopy 05/14/21 with clot evacuation and fulguration for reported tumor -05/21/21 Coude placed, keep Osorio catheter today 2/2 worsening hypoxia with exertion Date 05/25/21 1900 - 05/26/21 0659 05/26/21 0700 - 05/27/21 0659 Shift 6654-3941 24 Hour Total 3292-5252 5581-5204 24 Hour Total INTAKE P.O. 0 785 400 400 Shift Total(mL/kg) 0(0) 785(9.9) 400(5) 400(5) OUTPUT Urine(mL/kg/hr) 660 1425 815(0.9) 815 Shift Total(mL/kg) 660(8.3) 1425(17.9) 815(10.3) 815(10.3) NET -660 -640 -415 -415 Weight (kg) 79.5 79.5 79.5 79.5 79.5 HEME: Lab Results Component Value Date HGB 10.7 (L) 05/26/2021 #ABLA 2/2 surgical procedure, critical illness -CBC in the AM -no indication for transfusion -transfuse for Hbg <7 -DVT prophylaxis: Lovenox ID: Lab Results Component Value Date WBC 14.0 (H) 05/26/2021 #Confirmed Positive COVID-19 pneumonia -Decadron x 10 days -Remdesivir course completed -spoke with CTS re: baricitinib, plan to start tonight, confirmed w/ Dr. Whiting --> discontinued this evening 2/2 pneumonia PCR +++ -trend WBC and fever curve -supportive COVID care #MRSA pneumonia, Moraxella, H Influenza -Vancomycin and Cefepime started today -re-consult ID team -follow sensitivities Culture Results: No flowsheet data found. Lab Results Component Value Date MICROBIOLOGY (.) 05/05/2021 Final Report: Greater than or equal to 100,000 colonies/ml of Yeast Britta pneumonia is very rare and requires a histopathological diagnosis. The recovery of these organisms in routine culture, in most cases, only represents overgrowth of the organism secondary to antimicrobial therapy. Please contact the microbiology laboratory at [phone] if identification or susceptibility testing is clinically indicated. Access: Right brachial PICC (05/18) PPx: SCD, Lovenox Assessment and plan has been reviewed with attending, Dr. Jaja Muñoz NP [phone], [place] [facility] Department of Anesthesiology Division of Critical Care Medicine Cosigned by Dominique Wilkinson MD at 05/27/2021 8:39 AM STAFF FORESTER F FORESTER F FORESTER Associated attestation - Dominique Wilkinson MD - 05/27/2021 8:39 AM STAFF FORESTER I have seen and examined the patient on 05/26/21. I agree with or have edited the findings and plan of care as documented in the [place] note. G: Appears ill, but breathing more comfortably today N: Awake, remains appropriately conversant CV: RRR, no JVD. Well healed sternum Resp: Coarse lungs bilaterally, requiring Optiflow support GI: Abd soft, nontender, nondistended : Osorio non bloody MSK: mild LE ext edema Int: no rashes Sputum sample polymicrobial/viral. Will consult ID for assistance in treatment. Initially presumedCovid to be worsening but likely secondary to superinfection. Will stop baricitinib. Dominique Wilkinson MD Section of Acute and Critical Care Surgery Department of Surgery [facility] * Chiara Fonseca, STACI - 05/26/2021 3:27 PM CST Occupational Therapy NOTE / SESSION TYPE: Weekly Progress / Interim ATTEMPT Patient Name: Deepak Alvarado Date of : 1960 Age / Sex: 60 y.o. / male Room: [place] [address] [address] Admit Date: 05/01/2021 Date of Service: 05/26/21 Time In: 15:27 Time Out: 15:37 Primary Diagnosis: ST elevation myocardial infarction (STEMI) ([facility]) HPI: Deepak Alvarado is a 60 y.o. male who presents with ??retrosternal chest pain accompanied by sweating and shortness of breath. Patient underwent bladder surgery (cystoscopy, clot evacuation, and transurethral resection of bladder tumor) ??at [facility] 04/30/2021 and was discharged 05/01/2021. Patient transferred to for emergent cardiac catheterization. Patient admitted with acute anterior wall MT, s/p cardiac cath with PTCA of the LAD and diagonal, intra-aortic balloon pump placement 05/01, CAD, s/p CABG x4 on 05/04/2021 - Dr. Granados. Patient self-extubated on 05/05/2021, post-op tachypnea, acute respiratory failure, cardiogenic shock, cardiomyopathy, EF 40%, s/p IABPremoval 05/06/2021 ?? INTERVAL HOSPITAL COURSE 05/07/21 - 05/18/21: Patient transferred out of ICU on 05/08/21. ??Pacemaker wires removed on 05/13/21. Patient noted to have hematuria, s/p cystoscopy with clot evacuation and fulguration on 05/14/21, osorio catheter dislodged on 05/15/21. ??Patient developed acute respiratory failure with increasing O2 requirements, transferred to ICU on 05/17/21, found to have pulmonaryedema. ? 05/26 ADDITIONAL MEDICAL INFO SINCE RE-EVAL ON 05/19/21: 05/20: remains in the ICU, on Optiflow today 05/21: about the same today, Optiflow 05/22: still on Optiflow, back on Insulin gtt 05/23: no major changes , still on Optiflow 05/24: remains on Optiflow 05/25: about the same ?? CT chest 05/19/21: b gg inf, severe emphysema ?? CT chest 05/25/21: b inf, emphysema, no PE Notable History: CAD, s/p multiple stents, HTN, hyperlipidemia, DM, PVD, obesity, tobacco use Past Medical History: Diagnosis Date ??? Chronic obstructive pulmonary disease (CMS/HCC) (HCC) COPD ??? Coronary artery disease ??? Diabetes mellitus (HCC) ??? H/O heart artery stent 2006 ??? Hypertension Hypertension ??? ST elevation (STEMI) myocardial infarction (HCC) 05/01/2021 History reviewed. No pertinent surgical history. Precautions (Including Weight-Bearing): Fall risk, Bed / chair alarm, Sternal precautions, Cardiac precautions, Contact isolation: COVID and Airborne precautions: COVID Caregiver Present for Session (Yes or No): No SUBJECTIVE: Patient Comment: I'LL GET UP TOMORROW Pain Assessment: Pre-therapy pain level: 0 / 10 Pain location: No pain - Location N/A Pain intervention(s): No pain - Intervention N/A Post-therapy pain level: 0 / 10 Pain scale used: 0-10 SCALE Prior Living Environment and Level of Function: PLEASE SEE OT RE-EVAL ON 05/19/21 FOR PLOF INFO OBJECTIVE: Appearance: Presentation upon OT arrival: Patient Supine with head of bed elevated Presentation upon OT departure: Patient Supine with head of bed elevated Bed / chair alarm in place and activated upon OT departure: N/A; CONSTANT MONITORING IN ICU Call light within arms reach of patient at end of session: Yes Completed patient handoff and notified MANAGER RENTAL / RN, name: EVELYN, of patient's location and functional status upon completion of session Vital Signs: Heart rate at rest: 89 bpm SPO2 at rest: 100 % Oxygen LPM: OPTIFLOW 63%/55L Blood pressure at rest: 107/70 SUPINE WITH HEAD OF BED ELEVATED Cognitive / Perceptual Assessment: WFL UE ROM / Strength / Coordination: (A)ROM - Right: WFL THROUGHOUT; PATIENT REPORTS HAS BEEN GOING PAST 90 DEGREES SHOULDER FLEXION/ABDUCTION DESPITE STERNAL PRECAUTIONS, NO C/O PAIN Strength - Right: 4/5 THROUGHOUT (A)ROM - Left: WFL THROUGHOUT Strength - Left: 4/5 THROUGHOUT Hand Dominance: Right Hogshead Builder Strength (Right) GOOD Hogshead Builder Strength (Left): GOOD PATIENT NOT RECEPTIVE TO OUT OF BED ACTIVITY/ADLs AT THIS TIME DESPITE MAX ENCOURAGEMENT, SAYING, I'LL TAKE A BATH TOMORROW MORNING, BUT I JUST WANT SOME TEA RIGHT NOW. If this is the last note, consider this the discharge summary Chiara Fonseca OT 05/26/21 3:42 PM F FORESTER * Roya Marquez, COMPRESSOR HOUSE OPERATOR - 05/26/2021 3:19 PM CST Physical Therapy PT PROGRESS NOTE Patient refused to participate in therapy repeatedly, states tomorrow morning he will be willing towork with therapy Cosigned by Marcel Cervantes, PT at 05/26/2021 3:55 PM STAFF FORESTER F FORESTER F FORESTER * Anibal Lara MD - 05/26/2021 1:52 PM CST Hospitalist Progress Note Name: Deepak Alvarado Admission Date: 05/01/2021 Today's Date: 05/26/2021 Subjective: Pt seen and examined Clinical course: Overall pt condition has improved. Still on 4L per NC today 05/16: feels ok today, on 5L per NC 05/17: transferred to ICU for worsening respiratory distress requiring more O2 05/20: remains in the ICU, on Optiflow today 05/21: about the same today, Optiflow 05/22: still on Optiflow, back on Insulin gtt 05/23: no major changes , still on Optiflow 05/24: remains on Optiflow 05/25: about the same 05/26: optiflow, back on antibiotics Objective: Vitals: 05/26/21 0800 05/26/21 0900 05/26/21 1000 05/26/21 1100 BP: 117/73 121/69 109/70 112/57 BP Location: Patient Position: Pulse: 85 91 85 101 Resp: 24 28 22 20 Temp: TempSrc: SpO2: 90% Weight: Height: Wt Readings from Last 3 Encounters: 05/23/21 79.5 kg (175 lb 4.3 oz) 08/27/13 114.3 kg (252 lb) 10/19/12 111.6 kg (246 lb) I/O last 3 completed shifts: In: 1085 [P.O.:1085] Out: 2350 [Urine:2350] I/O this shift: In: 400 [P.O.:400] Out: 175 [Urine:175] Scheduled Meds Current Facility-Administered Medications Medication Dose Route Frequency Provider Last Rate Last Admin ??? acetaminophen (TYLENOL) tablet 650 mg 650 mg oral Q6H PRN Eleonora Duarte NP 650 mg at 05/21/21 1545 ? ? al & mag hydroxide gljmupoyddr-uwerjtzmacepntq-srxjhcpyq-nystatin (MAGIC MOUTHWASH) suspension 1-1-1-1 20 mL swish & spit Q4H PRN Elena Kelly NP ??? albuterol 2.5 mg /3 mL (0.083 %) nebulizer solution 2.5 mg 2.5 mg nebulization Q4H PRN (RT) Ralf Tomlinson MD 2.5 mg at 05/17/21 0224 ??? albuterol HFA (PROVENTIL HFA,VENTOLIN HFA,PROAIR HFA) 90 mcg/actuation inhaler 8 puff 8 puff inhalation Q4H While awake (RT) Ralf Tomlinson MD 8 puff at 05/26/21 0918 ??? aspirin enteric coated tablet 81 mg 81 mg oral Daily Varsha Crowder NP 81 mg at 05/26/21 1011 ??? atorvastatin (LIPITOR) tablet 80 mg 80 mg oral Nightly Rhina Granados MD 80 mg at 05/25/21 2105 ??? baricitinib (OLUMIANT) tablet EUA 4 mg 4 mg oral Daily Frank Dugan MD 4 mg at 05/26/21 1040 ??? cefepime (MAXIPIME) 2,000 mg in sodium chloride 0.9% 100 mL IVPB 2,000 mg intravenous Q12H LEAH Rhina Granados MD ??? dapagliflozin (FARXIGA) tablet 10 mg 10 mg oral Daily Stephen Melgar MD 10 mg at 05/26/21 1011 ??? dexAMETHasone (DECADRON) 4 mg/mL injection 6 mg 6 mg intravenous Daily Silviano Huddleston NP 6 mg at 05/26/21 1011 ??? dextrose oral liquid liquid 15 g 15 g oral Q15 Min PRN Silviano Huddleston NP Or ??? dextrose (D10W) 10% bolus 250 mL 250 mL intravenous Q15 Min PRN Silviano Huddleston NP ??? dextrose 10% infusion 10 mL/hr intravenous Continuous Rosy Muñoz NP 10 mL/hr at 05/26/21 1013 10 mL/hr at 05/26/21 1013 ??? dextrose oral liquid liquid 15 g 15 g oral Q15 Min PRN Anibal Lara MD ??? docusate sodium (COLACE) capsule 100 mg 100 mg oral BID Rhina Granados MD 100 mg at 05/26/21 1011 ??? enoxaparin (LOVENOX) syringe 40 mg 40 mg subcutaneous Daily-2100 Rhina Granados MD 40 mg at107/26/20 2105 ??? glucagon injection 1 mg 1 mg intramuscular Q30 Min PRN Anibal Lara MD ??? glucagon injection 1 mg 1 mg intramuscular Q30 Min PRN Silviano Huddleston NP ??? guaiFENesin (ROBITUSSIN) 20 mg/mL oral liquid 200 mg 200 mg oral QID PRN Caleb Toth PA 200 mg at 05/25/21 2353 ??? insulin lispro (HumaLOG, ADMELOG) 100 unit/mL injection 0-10 Units 0-10 Units subcutaneous TID with meals Silviano Huddleston NP 4 Units at 05/26/21 1321 ??? insulin lispro (HumaLOG, ADMELOG) 100 unit/mL injection 0-5 Units 0-5 Units subcutaneous Nightly Silviano Huddleston NP 1 Units at 05/25/21 2103 ??? insulin lispro (HumaLOG, ADMELOG) 100 unit/mL injection 7 Units 0.083 Units/kg subcutaneous TIDwith meals Silviano Huddleston NP 7 Units at 05/26/21 1322 ??? insulin NPH (HumuLIN N, NovoLIN N) 100 unit/mL injection 6 Units 6 Units subcutaneous Q6H LEAH Rosy Muñoz NP 6 Units at 05/26/21 1323 ??? ivabradine (CORLANOR) tablet 5 mg 5 mg oral BID with meals (bkfst, dinner) Stephen Melgar MD 5mg at 05/26/21 1040 ??? lidocaine (LIDODERM) 5 % patch 1 patch 1 patch transdermal Daily Rosy Muñoz NP0 mL/hr at 05/25/217 1 patch at 05/26/21 1011 ??? midodrine (PROAMATINE) tablet 15 mg 15 mg oral TID Silviano Huddleston NP 15 mg at 05/26/21 1011 ??? ondansetron (ZOFRAN) injection 4 mg 4 mg intravenous Q6H PRN Rhina Granados MD ??? pantoprazole DR (PROTONIX) extended release tablet 40 mg 40 mg oral Daily Rhina Granados MD40 mg at 05/26/21 1011 ??? polyethylene glycol (MIRALAX) packet 17 g 17 g oral Daily PRN Rhina Granados MD ??? QUEtiapine (SEROquel) tablet 50 mg 50 mg oral Nightly Silviano Huddleston NP 50 mg at 105 ??? sodium chloride 0.9% flush 0.5-20 mL 0.5-20 mL intra-catheter Q8H LEAH Rhina Granados MD 10 mL at 05/26/21 0626 ??? spironolactone (ALDACTONE) tablet 25 mg 25 mg oral Daily Stephen Melgar MD 25 mg at 05/26/21 1011 ??? tamsulosin (FLOMAX) extended release capsule 0.4 mg 0.4 mg oral Daily with dinner Elena Kelly NP 0.4 mg at 05/25/21 1750 ??? [START ON 05/27/2021] vancomycin (VANCOCIN) 1,250 mg in sodium chloride 0.9% 250 mL IVPB 15 mg/kg intravenous Q12H Rosy Muñoz NP ??? vancomycin (VANCOCIN) 2,000 mg in sodium chloride 0.9% 500 mL IVPB 25 mg/kg intravenous Once Rosy Muñoz NP dextrose 10%, 10 mL/hr, Last Rate: 10 mL/hr (05/26/21 1013) ??? acetaminophen ? ? al & mag hydroxide ncktsfeisqm-yzojjnuomstmnzu-rcgwmswdt-nystatin ??? albuterol ??? dextrose OR dextrose ??? dextrose OR [DISCONTINUED] dextrose ??? glucagon ??? glucagon ??? guaiFENesin ??? ondansetron ??? polyethylene glycol Physical Exam: General: alert, cooperative, no distress, appears stated age HEENT: Head:normacephalic, Eyes: Perrla, EOMI bilaterally, nasal and oral mucosal pink and moist Heart: normal rate, regular rhythm, normal S1, S2, no murmurs, rubs, clicks or gallops Lungs: clear to auscultation, no wheezes or rales and unlabored breathing Abdomen: soft, nontender, nondistended, no masses or organomegaly Extremities: peripheral pulses normal, no pedal edema, no clubbing or cyanosis Neuro: alert, oriented x 3, no defects noted in general exam. Lab Data Laboratory review: Chemistry CMP: Lab Results Component Value Date BUNSER 22 05/26/2021 CALCIUM 9.1 05/26/2021 CO2 22 05/26/2021 CHLORIDE 101 05/26/2021 CREATININE 0.48 (L) 05/26/2021 GLUCOSE 237 (H) 05/26/2021 GLUCOSE 77 05/26/2021 POTASSIUM 4.4 05/26/2021 SODIUM 136 05/26/2021 , CBC: Lab Results Component Value Date WBC 14.0 (H) 05/26/2021 RBC 3.56 (L) 05/26/2021 HGB 10.7 (L) 05/26/2021 HCT 32.6 (L) 05/26/2021 MCV 91.6 05/26/2021 MCH 30.1 05/26/2021 MCHC 32.8 05/26/2021 RDWCV 13.5 05/26/2021 RDWSD 44.8 05/26/2021 MPV 11.6 05/26/2021 NRBCABS 0.00 05/26/2021 , Coags: No results found for: PT, PTT, APTT, FFN, FIBRINOGEN, INR, ACTIVATEDCL, Lipids: Lab Results Component Value Date CHOL 131 05/24/2021 HDL 31 (L) 05/24/2021 LDLCALC 73 05/24/2021 TRIG 133 05/24/2021 CHOLHDL 4 05/24/2021 , Cardiac Enzymes: No results found for: CKTOTAL, CKMB, CKMBINDEX, TROPONINT and POC Glucose: Lab Results Component Value Date GLUCOSE 237 (H) 05/26/2021 GLUCOSE 77 05/26/2021 Home Medications have been reviewed and updated on pt's list Assessment and Plan Acute resp failure - self ext 05/05/21 -Lung infiltrates - pulm vascular congestion/CHF, and suspected pneumonia - completed Zosyn -COVID19 (+) 05/19 -started on Decadron and Remdesivir 05/19 -PRN IV Lasix -pt cont on Optiflow -pulmonology follows -per cards added Farxiga, Aldactone, and Corlanor 05/23 -back on antibiotics with Cefepime and Vancomycin Near syncope/Syncope episode, probable vaso vagal, monitor ?? Acute anterior STEMI with CAD , s/p PCI to LAD -s/p CABG x 4 05/04 given re thrombosis of existing stents -s/p IABP, removed 05/06 - ASA, ??statins, off Plavix due to hematuria, BBs on hold due to hypotension ?? Post CABG cardiogenic shock, hypotensive again - s/p??Dobutamine gtt and Levophed -now on Midodrine ?? Ventricular fibrillation - briefly on 05/03 - treated with Amiodarone and Dobutamine gtt, off them ?? Gross Hematuria ?- in a pt with hx of ??cystoscopy, -clot evacuation and transurethral resection of bladder tumor at [facility] -s/p 20??German three way catheter -holding Plavix -cysto 05/14 with clot evacuation and fulguration ? Type 2 diabetes.??- SSI proocol ?? Acute blood loss anemia ; -s/p PRBC transfusions in ICU - monitor HH, today 10.7 ?? Mild hyponatremia, monitor ?? Hx of ??Tobacco use. ?? DVT prophylaxis :Lovenox Pt will need continued inpatient management for the above medical issues. Code status: full Anibal Hughes MD [facility] Hospitalist 05/26/2021 1:52 PM F FORESTER * Ralf Tomlinson MD - 05/26/2021 12:36 PM CST Pulmonary Daily Progress Chief complaint/reason for consult: Respiratory failure. Interval History: On optiflow 100%/60L afebrile Appears comf COVID positive 05/19/21 Presenting History: 60 yo man w COPD, DM, CAD/stents admitted 05/01/21 with chest pain. Had recent hematuria as well. Workup revealed an acute MT. Cath showed multi-vessel CAD. Had balloon pump placed. CABG x 4 done on 05/04/21. He was continued on mechanical ventilation and self extubated this AM (05/05/21). He is on multiple pressors. Sedated with precedex. Some tachypnea. A balloon pump is in place. Current tobacco use. COPD listed as prior diagnosis. No inhalers on home med list. Allergies: Allergies Allergen Reactions ??? Metoclopramide Medications: Scheduled Meds:albuterol HFA, 8 puff, inhalation, Q4H While awake (RT) aspirin, 81 mg, oral, Daily atorvastatin, 80 mg, oral, Nightly baricitinib, 4 mg, oral, Daily cefepime, 2,000 mg, intravenous, Q12H LEAH dapagliflozin, 10 mg, oral, Daily dexAMETHasone, 6 mg, intravenous, Daily docusate sodium, 100 mg, oral, BID enoxaparin, 40 mg, subcutaneous, Daily-2100 insulin lispro, 0-10 Units, subcutaneous, TID with meals insulin lispro, 0-5 Units, subcutaneous, Nightly insulin lispro, 0.083 Units/kg, subcutaneous, TID with meals insulin NPH, 6 Units, subcutaneous, Q6H LEAH ivabradine, 5 mg, oral, BID with meals (bkfst, dinner) lidocaine, 1 patch, transdermal, Daily midodrine, 15 mg, oral, TID pantoprazole DR, 40 mg, oral, Daily QUEtiapine, 50 mg, oral, Nightly sodium chloride 0.9%, 0.5-20 mL, intra-catheter, Q8H LEAH spironolactone, 25 mg, oral, Daily tamsulosin, 0.4 mg, oral, Daily with dinner [START ON 05/27/2021] vancomycin, 15 mg/kg, intravenous, Q12H vancomycin, 25 mg/kg, intravenous, Once Continuous Infusions:dextrose 10%, 10 mL/hr, Last Rate: 10 mL/hr (05/26/21 1013) PRN Meds:.??? acetaminophen ? ? al & mag hydroxide cvhbgjzdvtq-sgfqskllfybzpui-tlvkcysjs-nystatin ??? albuterol ??? dextrose OR dextrose ??? dextrose OR [DISCONTINUED] dextrose ??? glucagon ??? glucagon ??? guaiFENesin ??? ondansetron ??? polyethylene glycol ROS Above review of system reviewed on 05/26/2021 Vitals: Vitals: 05/26/21 0800 05/26/21 0900 05/26/21 1000 05/26/21 1100 BP: 117/73 121/69 109/70 112/57 BP Location: Patient Position: Pulse: 85 91 85 101 Resp: 24 28 22 20 Temp: TempSrc: SpO2: 90% Weight: Height: Temp (24hrs), Av.5 ??C (97.7 ??F), Min:36.5 ??C (97.7 ??F), Max:36.5 ??C (97.7 ??F) FiO2 (%): [55 %-100 %] 100 % Intake/Output Summary (Last 24 hours) at 05/26/2021 1236 Last data filed at 05/26/2021 1100 Gross per 24 hour Intake 1185 ml Output 1375 ml Net -190 ml Physical Exam Constitutional: General: He is not in acute distress. Appearance: He is well-developed. HENT: Head: Normocephalic and atraumatic. Eyes: General: No scleral icterus. Conjunctiva/sclera: Conjunctivae normal. Neck: Thyroid: No thyromegaly. Cardiovascular: Rate and Rhythm: Normal rate and regular rhythm. Heart sounds: No murmur heard. Pulmonary: Effort: Pulmonary effort is normal. No respiratory distress. Breath sounds: Normal breath sounds. No wheezing, rhonchi or rales. Chest: Comments: Sternotomy incision Abdominal: General: Bowel sounds are normal. Palpations: Abdomen is soft. Skin: General: Skin is warm and dry. Neurological: Mental Status: He is alert. Lab/Radiology/Diagnostic Review: Labs: Recent Labs Lab Units 05/26/21 0623 05/25/21 0300 05/24/21 0348 WBC K/cumm 14.0* 11.2* 10.7* HEMOGLOBIN g/dL 10.7* 10.0* 9.6* HEMATOCRIT % 32.6* 31.6* 29.5* PLATELETS K/cumm 535* 459* 457* Recent Labs Lab Units 05/26/21 0842 05/26/21 0632 05/26/21 0623 05/25/21 0920 05/25/21 0300 05/24/21 0646 05/24/21 0348 SODIUM mmol/L -- -- 136 -- 132* -- 133* POTASSIUM PLASMA mmol/L -- -- 4.4 -- 4.2 -- 4.3 CHLORIDE mmol/L -- -- 101 -- 96* -- 96* CO2 mmol/L -- -- 22 -- 23 -- 24 ANIONGAP mmol/L -- -- 13 -- 13 -- 13 GLUCOSE mg/dL -- -- 77 -- 222* < > 142 POC GLUCOSE MONITOR mg/dL 95 74 -- < > -- < > -- BUN SERUM mg/dL -- -- 22 -- 24 -- 23 CREATININE mg/dL -- -- 0.48* -- 0.58* -- 0.60* CALCIUM mg/dL -- -- 9.1 -- 9.0 -- 8.8 < > = values in this interval not displayed. Recent Labs Lab Units 05/25/21 0951 PH ART 7.47* PCO2 ART mmHg 32* PO2 ART mmHg 72* HCO3 ART (CALC) mmol/L 24 BASE EXC ART mmol/L 0 O2 SAT ART (JOELLE) % 95 Imaging: CT chest 05/19/21: b gg inf, severe emphysema CT chest 05/25/21: b inf, emphysema, no PE Other diagnostic tests: I have personally reviewed above laboratory findings, chest imaging, and diagnostic tests 05/26/2021 Assessment and Plan: Acute respiratory failure Acute MT w CAD s/p CABG x 4 on 05/04/21, past hx multiple stents Cardiogenic shock, resolved Cardiomyopathy EF 40% V fib COPD: severe emphysematous changes on CT Anemia Hematuria s/p cystoscopy/fulguration COVID 19, diagnosed 05/19/21, resp status began worsening 05/15/21 Possible bacterial pneumonia, treated ?? Recs: Oxygen support, adjust as needed Dexamethasone started 05/19 On remdesivir On baricitinib Incentive spirometry Scheduled albuterol Scheduled bronchodilators Increase activity as tolerated Chart reviewed F FORESTER * Walt Se, [facility] - 05/26/2021 12:18 PM CST Pharmacokinetic Consult - Vancomycin Dosing Deepak Alvarado is a 60 y.o. male who has been consulted for vancomycin dosing for HAP. Relevant clinical data and objective history reviewed: Creatinine Date Value Ref Range Status 05/26/2021 0.48 (L) 0.80 - 1.30 mg/dL Final 05/25/2021 0.58 (L) 0.80 - 1.30 mg/dL Final 05/24/2021 0.60 (L) 0.80 - 1.30 mg/dL Final BUN Date Value Ref Range Status 05/26/2021 22 8 - 25 mg/dL Final 05/25/2021 24 8 - 25 mg/dL Final 05/24/2021 23 8 - 25 mg/dL Final Estimated Creatinine Clearance: 165.7 mL/min (A) (by C-G formula based on SCr of 0.48 mg/dL (L)). I/O last 3 completed shifts: In: 1085 [P.O.:1085] Out: 2350 [Urine:2350] Lab Results Component Value Date/Time WBC 14.0 (H) 05/26/2021 06:23 AM HGB 10.7 (L) 05/26/2021 06:23 AM HGB 7.8 (L) 05/04/2021 07:28 PM HCT 32.6 (L) 05/26/2021 06:23 AM MCV 91.6 05/26/2021 06:23 AM LABPLAT 535 (H) 05/26/2021 06:23 AM Temp Readings from Last 3 Encounters: 05/25/21 36.5 ??C (97.7 ??F) (Oral) Patient Weight 05/23/21 79.5 kg (175 lb 4.3 oz) Assessment/Plan The patient will be started on vancomycin utilizing scheduled dosing based on actual body weight. Will initiate loading dose at 2000 mg IV once followed by 1250 gm every 12 hours. Pharmacy will also follow closely for signs and symptoms of toxicity. Serum creatinine will be ordered per policy. Vancomycin trough level has been ordered to be drawn on 05/27/21 at 2330. Goal trough is 15-20. Pharmacy will continue to follow the patient???s culture results and clinical progress daily. Day 1 of therapy. Se Godoy RPh F FORESTER * Se Godoy RPh - 05/26/2021 11:44 AM CST Pharmacy Renal Dose Adjustment Deepak Alvarado meets P&T-approved criteria for renal dose adjustment of medication therapy. CEFEPIME Current regimen: 1 gm Q12H New regimen: 2 gm Q12H Lab Results Component Value Date/Time CREATININE 0.48 (L) 05/26/2021 06:23 AM BUNSER 22 05/26/2021 06:23 AM Estimated Creatinine Clearance: 165.7 mL/min (A) (by C-G formula based on SCr of 0.48 mg/dL (L)). Se Godoy RPh F FORESTER * Shima Paulson NP - 05/26/2021 10:57 AM CST Daily Progress SUBJECTIVE: Mr. Alvarado remains on optiflow. BP stable. SR. Discussed with bedsideRN. OBJECTIVE: Vitals: 05/26/21 0715 05/26/21 0730 05/26/21 0745 05/26/21 0900 BP: 108/72 BP Location: Patient Position: Pulse: 85 85 77 Resp: 25 19 19 Temp: TempSrc: SpO2: 90% Weight: Height: Intake/Output Summary (Last 24 hours) at 05/26/2021 1057 Last data filed at 05/26/2021 1000 Gross per 24 hour Intake 785 ml Output 1430 ml Net -645 ml Scheduled Medications Medication Dose Route Frequency ??? albuterol HFA (PROVENTIL HFA,VENTOLIN HFA,PROAIR HFA) 90 mcg/actuation inhaler 8 puff 8 puff inhalation Q4H While awake (RT) ??? aspirin enteric coated tablet 81 mg 81 mg oral Daily ??? atorvastatin (LIPITOR) tablet 80 mg 80 mg oral Nightly ??? baricitinib (OLUMIANT) tablet EUA 4 mg 4 mg oral Daily ??? dapagliflozin (FARXIGA) tablet 10 mg 10 mg oral Daily ??? dexAMETHasone (DECADRON) 4 mg/mL injection 6 mg 6 mg intravenous Daily ??? docusate sodium (COLACE) capsule 100 mg 100 mg oral BID ??? enoxaparin (LOVENOX) syringe 40 mg 40 mg subcutaneous Daily-2100 ??? insulin lispro (HumaLOG, ADMELOG) 100 unit/mL injection 0-10 Units 0-10 Units subcutaneous TID with meals ??? insulin lispro (HumaLOG, ADMELOG) 100 unit/mL injection 0-5 Units 0-5 Units subcutaneous Nightly ??? insulin lispro (HumaLOG, ADMELOG) 100 unit/mL injection 7 Units 0.083 Units/kg subcutaneous TIDwith meals ??? insulin NPH (HumuLIN N, NovoLIN N) 100 unit/mL injection 6 Units 6 Units subcutaneous Q6H LEAH ??? ivabradine (CORLANOR) tablet 5 mg 5 mg oral BID with meals (bkfst, dinner) ??? lidocaine (LIDODERM) 5 % patch 1 patch 1 patch transdermal Daily ??? midodrine (PROAMATINE) tablet 15 mg 15 mg oral TID ??? pantoprazole DR (PROTONIX) extended release tablet 40 mg 40 mg oral Daily ??? QUEtiapine (SEROquel) tablet 50 mg 50 mg oral Nightly ??? sodium chloride 0.9% flush 0.5-20 mL 0.5-20 mL intra-catheter Q8H LEAH ??? spironolactone (ALDACTONE) tablet 25 mg 25 mg oral Daily ??? tamsulosin (FLOMAX) extended release capsule 0.4 mg 0.4 mg oral Daily with dinner LABS: Recent Labs Lab Units 05/26/21 0623 WBC K/cumm 14.0* HEMOGLOBIN g/dL 10.7* HEMATOCRIT % 32.6* PLATELETS K/cumm 535* Recent Labs Lab Units 05/26/21 0842 05/26/21 0632 05/26/21 0623 SODIUM mmol/L -- -- 136 POTASSIUM PLASMA mmol/L -- -- 4.4 CHLORIDE mmol/L -- -- 101 CO2 mmol/L -- -- 22 ANIONGAP mmol/L -- -- 13 GLUCOSE mg/dL -- -- 77 POC GLUCOSE MONITOR mg/dL 95 < > -- BUN SERUM mg/dL -- -- 22 CREATININE mg/dL -- -- 0.48* CALCIUM mg/dL -- -- 9.1 < > = values in this interval not displayed. Recent Labs Lab Units 05/24/21 0348 CHOLESTEROL mg/dL 131 TRIGLYCERIDES mg/dL 133 HDL mg/dL 31* No results found for: BNP No results found for: TROPONINI ASSESSMENT/PLAN: CAD + STEMI s/p CABG - Cardiac cath 05/01 with 40% distal LM, 100% prox LAD, 90% prox Cx, 50% prox and distal RCA - Echo 05/02 EF??37%, CABGx4 05/04/2021 - SR 80s on Sedicii -Pro 2233 -CTS following ?? COVID 19 - dx 05/19/2021 - on Remdesivir and dexamethasone -on optiflow -pulmonology following ?? Acute Respiratory failure - Lung infiltrates per CXR on 05/19, completed Abx, COVID + - transferred to ICU 05/17 for increasing oxygen requirments - on Optiflow - Pulm following - CT PE negative ?? Hematuria - cysto 05/14 - resolved ?? Urinary retention -urology following ?? S/p Cardiogenic shock + Hypotension - off pressors -midodrine TID -BP improving ?? Hypokalemia - on K supplemented -??improved ?? Hx V. Fib - brief on 05/03 - treated w/ Amiodarone and Dobutamine gtt, resolved -4 beat episode of NSVT 05/23 ?? HLD - on Statin ?? [facility]OL[facility] 05/26/2021 10:57 AM Cosigned by Lester Batista MD at 05/26/2021 11:24 AM STAFF FORESTER F FORESTER F FORESTER * Varsha Lee NP - 05/26/2021 9:06 AM CST Cardiothoracic Surgery Progress Note Deepak Alvarado 1960 Hospital DAY#25 22 days postop Urgent Coronary Artery Bypass Graft x4 Subjective: Resting in bed. Currently on optiflow, pulse ox 93% with deep breaths. Repositioned cannula of optiflow as it was out of his nose. No acute complaints from patient. OBJECTIVE: Vitals: Temp: [36.5 ??C (97.7 ??F)-36.8 ??C (98.2 ??F)] 36.5 ??C (97.7 ??F) Pulse: [68-101] 77 BP: (97-131)/(58-83) 108/72 Resp: [13-40] 19 SpO2: [88 %-99 %] 90 % FiO2 (%): [50 %-100 %] 100 % Wt Readings from Last 3 Encounters: 05/23/21 79.5 kg (175 lb 4.3 oz) 08/27/13 114.3 kg (252 lb) 10/19/12 111.6 kg (246 lb) I/O last 2 completed shifts: In: 785 [P.O.:785] Out: 1425 [Urine:1425] Physical Exam Vitals and nursing note reviewed. Constitutional: General: He is not in acute distress. Appearance: Normal appearance. HENT: Head: Normocephalic and atraumatic. Nose: Nose normal. Mouth/Throat: Pharynx: Oropharynx is clear. Eyes: Conjunctiva/sclera: Conjunctivae normal. Cardiovascular: Rate and Rhythm: Normal rate and regular rhythm. Heart sounds: No murmur heard. Comments: NSR 97 Pulmonary: Effort: Pulmonary effort is normal. Tachypnea present. No accessory muscle usage. Breath sounds: Decreased breath sounds present. Abdominal: Palpations: Abdomen is soft. Musculoskeletal: Cervical back: Neck supple. Right lower leg: No edema. Left lower leg: No edema. Skin: General: Skin is warm and dry. Comments: Sternal incision is well healed and approximated Sternum is stable to cough Rt SVG site HOME CARE PROVIDER with steri-strips C/D/I Neurological: General: No focal deficit present. Mental Status: He is alert and oriented to person, place, and time. Psychiatric: Mood and Affect: Mood normal. Access: picc Recent Labs Lab Units 05/26/21 0605/25/21 0300 05/24/21 0348 WBC K/cumm 14.0* 11.2* 10.7* HEMOGLOBIN g/dL 10.7* 10.0* 9.6* HEMATOCRIT % 32.6* 31.6* 29.5* PLATELETS K/cumm 535* 459* 457* Recent Labs Lab Units 05/26/21 0605/25/21 0300 05/24/21 0348 SODIUM mmol/L 136 132* 133* POTASSIUM PLASMA mmol/L 4.4 4.2 4.3 CHLORIDE mmol/L 101 96* 96* CO2 mmol/L 22 23 24 BUN SERUM mg/dL 22 24 23 CREATININE mg/dL 0.48* 0.58* 0.60* CALCIUM mg/dL 9.1 9.0 8.8 Recent Labs Lab Units 05/25/21 0951 PH ART 7.47* PCO2 ART mmHg 32* PO2 ART mmHg 72* BASE EXC ART mmol/L 0 Drips: None Imaging: Today's CXR: Continued patchy infiltrates. Assessment and Plan: 60 y.o. male 22 Days Post-Op s/p urgent Coronary Artery Bypass Graft x4 by Dr. Granados CVS: No acute issues over night. Blood gas 05/25 7.47/32/72 Pulm: Continued optiflow. Pulmonology following. CoVID (+) 05/19/2021--started on Remdesivir and IVsteroids. Started on baricitinib 05/25/2021. GI: Bowel Regimen. Regular diet +supplements. Renal: BUN/Scr 22/0.48 ID: ID following. Continue remdesivir and IV steroids. D/L/T: PICC Prophylaxis: Protonix and Lovenox Dispo: ICU Varsha Lee NP Cardiothoracic Surgery [place] C: [phone] [facility] [employer] Cosigned by Rhina Granados MD at 05/26/2021 12:47 PM STAFF FORESTER F FORESTER F FORESTER * Chiara Fonseca, OT - 05/26/2021 8:18 AM CST Occupational Therapy 05/26/21 0818 General Session Type Other (comment) (NO OT PROVIDED, NO OT CHARGED) OT Missed Visit Reason Other (comment) MED CANCEL- PATIENT SEEN FAST ASLEEP ON OPTIFLOW 80%/10L, O2 LEVEL AT 79% UPON THERAPIST ARRIVAL; RN AWARE. WILL RE-ATTEMPT OT SESSION PENDING O2 SATS. Chiara Fonseca OT 05/26/21 8:26 AM F FORESTER F FORESTER * Cristina Anaya RD - 05/25/2021 5:58 PM CST Nutrition Assessment Reason for Assessment: Follow Up Encounter Date: 05/25/21 5:59 PM Nutrition Assessment and Plan: Patient is a 60 y.o. male. Admit Dx: STEMI. Admitted on 05/01/2021, current LOS is 24 days. Patientremains in the ICU, POD#21 S/P CABG x 4. Diagnosed COVID-19+ on 05/19, now on isolation. Surgical incision to chest and right leg. BM 05/22. On opti-flow. PO intakes improving since last admission. Drinking oral supplement, will continue. Weight remains stable. Current diet order: Adult Diet Modified Consistency; Mechanical Soft; Low Fat, Low Chol, Low Na; Consistent Carb 2000 maggie Pt intake is inconsistent. PO intakes since 05/22: 25% x 5, 50% x 2, 75% x 1; Snacks 100% x 6, 0% x 1 Ensure High Protein tid, intakes since 05/22: refuse x 1, 100% x 3 Nutrition Diagnosis 1: Increased nutrient needs (protein) Related to: Acute illness/injury Evidenced by: Other (comment) (COVID-19+) ?? Interventions: Communication,Other (comment) (continue Ensure High Protein tid) ?? Monitoring and Evaluation: Appetite,Blood glucoses,Discharge plans,Labs,Plan of care,PO intake,Supplement tolerance,Weight changes ?? Goals: Adequate nutrition to meet estimated needs by next assessment,Diet consistency appropriate for patient needs during stay,Oral intake to meet 75% estimated nutritional needs by next assessment,Tolerance of medical food supplement by next assessment Estimated needs: ?? MSJ Total Energy Needs: 2001.25 kcal using Activity Factor: 1.25 ?? Total Protein Estimated Needs (gm): 103.35 Protein Needs Based on g/k.3 Type of Weight Used for Estimated Protein : Current. ?? Estimated Fluid Needs ?? Type of Weight Used for Estimated Fluid Needs: Current ?? Fluid Needs Based on : 1 ml/kcal ?? Total Fluid Estimated Needs: 2001 mL/day Objective Anthropometrics Weight: 79.5 kg (175 lb 4.3 oz) Admission Weight : 86.2 kg Weight Change: 0.00 kg (0.00 lbs) IBW/kg (Calculated) : 72.6 kg Height: 175.3 cm (5' 9.02 ) Weight in (lb) to have BMI = 25: 169 BMI (Calculated): 25.9 BMI Classification: BMI 25.0 - 29.9 Overweight 3 Day I/O Summary 05/23 1900 - 05/25 0659 In: 1304 [P.O.:777; I.V.:527] Out: 2590 [Urine:2590] Temp: 36.8 ??C (98.2 ??F) Minute Ventilation (L/min): 12.7 L/min Past Medical History: Diagnosis Date ??? Chronic obstructive pulmonary disease (CMS/HCC) (HCC) COPD ??? Coronary artery disease ??? Diabetes mellitus (HCC) ??? H/O heart artery stent 2006 ??? Hypertension Hypertension ??? ST elevation (STEMI) myocardial infarction ([facility]) 05/01/2021 Medications and Lab Review: Scheduled Meds: albuterol HFA, 8 puff, inhalation, Q4H While awake (RT) aspirin, 81 mg, oral, Daily atorvastatin, 80 mg, oral, Nightly dapagliflozin, 10 mg, oral, Daily dexAMETHasone, 6 mg, intravenous, Daily docusate sodium, 100 mg, oral, BID enoxaparin, 40 mg, subcutaneous, Daily-2100 insulin lispro, 0-10 Units, subcutaneous, TID with meals insulin lispro, 0-5 Units, subcutaneous, Nightly insulin lispro, 0.083 Units/kg, subcutaneous, TID with meals insulin NPH, 10 Units, subcutaneous, Q6H LEAH ivabradine, 5 mg, oral, BID with meals (bkfst, dinner) lidocaine, 1 patch, transdermal, Daily midodrine, 15 mg, oral, TID pantoprazole DR, 40 mg, oral, Daily QUEtiapine, 50 mg, oral, Nightly sodium chloride 0.9%, 0.5-20 mL, intra-catheter, Q8H LEAH spironolactone, 25 mg, oral, Daily tamsulosin, 0.4 mg, oral, Daily with dinner Continuous Infusions: Sodium Date Value Ref Range Status 05/25/2021 132 (L) 135 - 145 mmol/L Final Potassium, pl Date Value Ref Range Status 05/25/2021 4.2 3.3 - 4.9 mmol/L Final BUN Date Value Ref Range Status 05/25/2021 24 8 - 25 mg/dL Final Creatinine Date Value Ref Range Status 05/25/2021 0.58 (L) 0.80 - 1.30 mg/dL Final Phosphorus, pl Date Value Ref Range Status 05/25/2021 3.0 2.3 - 4.5 mg/dL Final Magnesium Date Value Ref Range Status 05/25/2021 1.7 1.4 - 2.5 mg/dL Final Calcium Date Value Ref Range Status 05/25/2021 9.0 8.5 - 10.3 mg/dL Final HDL Date Value Ref Range Status 05/24/2021 31 (L) >=40 mg/dL Final Comment: Interpretive Data Ages [...] Interpretive Data was last revised on 2018. Lab Results Component Value Date HGBA1C 13.5 (H) 05/03/2021 Lab Results Component Value Date GLUCOSE 134 05/25/2021 GLUCOSE 158 05/25/2021 GLUCOSE 97 05/25/2021 GLUCOSE 222 (H) 05/25/2021 GLUCOSE 135 05/24/2021 GLUCOSE 179 05/24/2021 GLUCOSE 142 05/24/2021 GLUCOSE 141 05/23/2021 Nursing Assessment: Last BM Date: 05/22/21 Bowel Sounds (All Quadrants): Active,Present Emesis Assessment Emesis Color/Appearance: Brown Marko Scale Score: 18 Skin Integrity: Surgical incision Diet Instructions Recommend to eat a generally healthy diet that includes a variety of fruits, vegetables, whole-grain breads, low-fat dairy products, beans, lean meats, and fish. Avoid saturated and trans fats and limit sodium to less than 2,300 mg per day. Avoid foods like desserts, fast food, fried/breaded foods,deli meats, sausage, ruiz, and gravies/sauces. For a Consistent Carbohydrate Diet: Aim to consume 3 meals each day with 60-75 grams of carbohydrate at each one, avoid skipping meals. Avoid sugary drinks like lemonade, regular soda, gatorade, and sweet tea and drink water throughout the day.Monitor your blood sugar and take insulin and medication as directed by your doctor. Call [phone] to speak with a dietitian about any diet related concerns. Recommend to follow up with outpatient nutrition counseling, ask your doctor for a referral and call [phone] to make an appointment. Nutrition Follow-Up : 06/01/[address],LD F FORESTER * Rosy Muñoz NP - 05/25/2021 3:59 PM CST [facility] Critical Care Medicine Daily Progress Team: Community AM Subjective Patient is a 60 y.o. y/o male admitted on 05/01/2021 5:20 PM with the following indication(s) for ICU care - s/p CABG, now with COVID 19 viral pneumonia Interval History: -worsening respiratory distress, PE protocol CT scan negative -BiPAP / Optiflow -aggressive pulmonary toilet -watch glucose, labile HPI 60 year old male with copd, obesity, pvd, htn, hld, dm2 & CAD s/p multiple LAD stents who p/w anterior STEMI after bladder procedure on 04/29. [facility] where they found in-stent thrombosis and an angioplasty was performed but stent could not be placed. A balloon pump was placed and the patient was transferred to the CVU. CT-surgery was consulted for CABG. The patie nt underwent a 4 vessel cabg on 05/04 w/ Dr. Granados (MAE->LAD, Saph vein->diag & obtuse, Saph->PDA). He developed rebleeding from his bladder tumor and this was adressed by urology. Heself extubated the next day after his CABG. His osorio was removed yesterday and he is currently post op day 11 from the CABG. He has been getting diuresed on the floor but has unfortunately had increasing oxygen requirement for the last 24 hours despite diuresis. He is currently on a non-rebreatherand being transferred to the ICU.?? Hospital Course 04/29 Cystoscopy [place] [facility] 04/30 STEMI, [facility] -> instent thrombosis, angioplasty, IABP, transfer to [facility] 05/04/21: Increased blood clot from osorio and obstruction with pain.?? 05/05/21: Brief asystole o/n w turning. Stable after. Self extubated in AM.?? 05/06/21: NAEON. Maintained on CPAP and optiflow.?? 05/07/21: NAEON. Up in chair at time of exam. TTF 05/10 near syncopal episode 05/14 cystoscopy with clot removal and fulguration of bleeding 05/17 readmit to ICU with pulmonary edema, lasix drip 05/18 Nasal cannula, on/off pressors, Negative VQ, ACTH Stim unremarkable 05/19 COVID positive, 15 L/NC, Remdesivir, dexamethasone 05/21 coude catheter placed, remains on optiflow, updated 05/22 increase seroquel, on optiflow 40L 75% 05/23 HF meds started, Lasix 40mg 05/24 FiO2 at 60% 05/25 PE protocol Scheduled Medications: albuterol HFA, 8 puff, inhalation, Q4H While awake (RT) aspirin, 81 mg, oral, Daily atorvastatin, 80 mg, oral, Nightly dapagliflozin, 10 mg, oral, Daily dexAMETHasone, 6 mg, intravenous, Daily docusate sodium, 100 mg, oral, BID enoxaparin, 40 mg, subcutaneous, Daily-2100 insulin lispro, 0-10 Units, subcutaneous, TID with meals insulin lispro, 0-5 Units, subcutaneous, Nightly insulin lispro, 0.083 Units/kg, subcutaneous, TID with meals insulin NPH, 10 Units, subcutaneous, Q6H LEAH ivabradine, 5 mg, oral, BID with meals (bkfst, dinner) lidocaine, 1 patch, transdermal, Daily midodrine, 15 mg, oral, TID pantoprazole DR, 40 mg, oral, Daily QUEtiapine, 50 mg, oral, Nightly sodium chloride 0.9%, 0.5-20 mL, intra-catheter, Q8H LEAH spironolactone, 25 mg, oral, Daily tamsulosin, 0.4 mg, oral, Daily with dinner Continuous Medications: PRN Medications: ??? acetaminophen ? ? al & mag hydroxide rvkvwkuyogr-xbofkgppvdrrler-smruvcwig-nystatin ??? albuterol ??? dextrose OR dextrose ??? dextrose OR [DISCONTINUED] dextrose ??? glucagon ??? glucagon ??? guaiFENesin ??? ondansetron ??? polyethylene glycol Objective Vitals: Most Recent: Vitals: 05/25/21 1822 BP: Pulse: Resp: Temp: SpO2: 96% 24hr Min/Max: Temp Min: 35.8 ??C (96.5 ??F) Max: 36.8 ??C (98.2 ??F) Pulse Min: 73 Max: 101 BP Min: 97/67 Max: 125/82 Resp Min: 16 Max: 39 SpO2 Min: 92 % Max: 99 % LDA: PICC Double Lumen 05/18/21 Non-tunneled Power #1 Red, #2 Purple, Right Upper arm;Brachial (Active) Placement Date/Time: 05/18/21 1200 Catheter Time Out Checklist Completed: Yes Hand Hygiene Performed: Yes Site Prep: Alcohol;Betadine;Chlorhexidine Site Prep Agent has Completely Dried Before Insertion: Yes All 5 Sterile Barriers or Appropriate ... Number of days: 7 Urethral Catheter Coude (Active) Placement Date/Time: 05/21/21 1103 Inserted by: vanessa Catheter Type: Coude Tube Size (Fr.): 18 Fr Catheter Balloon Size: 5 mL Urine Returned: Yes Number of days: 4 Vent settings: FiO2 (%): [50 %-60 %] 60 % Hemodynamic parameters for last 24 hours: I/O: Date 05/24/211899 - 05/25/21 0659 05/25/21 0700 - 05/26/21 0659 Shift 6679-6655 24 Hour Total 3106-4021 6020-8776 24 Hour Total INTAKE P.O. 300 657 425 425 Shift Total(mL/kg) 300(3.8) 657(8.3) 425(5.3) 425(5.3) OUTPUT Urine(mL/kg/hr) 925 1800 550(0.6) 550 Shift Total(mL/kg) 925(11.6) 1800(22.6) 550(6.9) 550(6.9) NET -625 -1143 -125 -125 Weight (kg) 79.5 79.5 79.5 79.5 79.5 Physical Exam: General: ill appearing patient Neurologic: awake, following commands, regarding examiner HEENT: PERRL, neck supple Cardiovascular: S1, S2; RRR Pulmonary: bilateral slightly coarse, respirations labored at times Abdomen: round, hypoactive bowel sounds, soft, NT/ND Extremities: warm, dry, +pulses, no edema Drains: Osorio catheter Skin: without rashes or lesions Lab/Radiology/Diagnostic Review: Laboratory review: Lab results in the last 24 hours: Recent Results (from the past 24 hour(s)) POCT glucose Collection Time: 05/24/21 7:52 PM Result Value Ref Range Glucose, POC 179 70 - 199 mg/dL POCT glucose Collection Time: 05/24/21 11:31 PM Result Value Ref Range Glucose, POC 135 70 - 199 mg/dL Phosphorus Collection Time: 05/25/21 3:00 AM Result Value Ref Range Phosphorus, pl 3.0 2.3 - 4.5 mg/dL Magnesium Collection Time: 05/25/21 3:00 AM Result Value Ref Range Magnesium 1.7 1.4 - 2.5 mg/dL CBC without differential Collection Time: 05/25/21 3:00 AM Result Value Ref Range WBC 11.2 (H) 3.8 - 9.9 K/cumm Hgb 10.0 (L) 13.0 - 17.5 g/dL Hct 31.6 (L) 38.9 - 50.3 % Plt 459 (H) 150 - 400 K/cumm MPV 11.7 9.1 - 12.3 fL RBC 3.46 (L) 4.30 - 5.80 M/cumm MCV 91.3 81.3 - 96.4 fL MCH 28.9 27.1 - 33.3 pg MCHC 31.6 (L) 32.3 - 35.7 g/dL RDW CV 13.2 11.1 - 14.9 % RDW SD 44.2 35.7 - 48.1 fL NRBC abs 0.00 0.00 - 0.01 K/cumm Basic metabolic panel Collection Time: 05/25/21 3:00 AM Result Value Ref Range Sodium 132 (L) 135 - 145 mmol/L Potassium, pl 4.2 3.3 - 4.9 mmol/L Chloride 96 (L) 97 - 110 mmol/L CO2 23 22 - 32 mmol/L Anion gap 13 2 - 15 mmol/L BUN 24 8 - 25 mg/dL Creatinine 0.58 (L) 0.80 - 1.30 mg/dL Glucose 222 (H) 70 - 199 mg/dL Calcium 9.0 8.5 - 10.3 mg/dL eGFR Collection Time: 05/25/21 3:00 AM Result Value Ref Range eGFR 112 mL/min/1.73 m2 POCT glucose Collection Time: 05/25/21 9:20 AM Result Value Ref Range Glucose, POC 97 70 - 199 mg/dL Blood gas, arterial Collection Time: 05/25/21 9:51 AM Result Value Ref Range pH, Art 7.47 (H) 7.35 - 7.45 PCO2, Arterial 32 (L) 35 - 45 mmHg PO2, Arterial 72 (L) 83 - 108 mmHg HCO3 Art (Calculated) 24 20 - 30 mmol/L BE, art 0 mmol/L O2 Sat Art (Measured) 95 90 - 95 % POCT glucose Collection Time: 05/25/21 12:23 PM Result Value Ref Range Glucose, POC 158 70 - 199 mg/dL POCT glucose Collection Time: 05/25/21 5:39 PM Result Value Ref Range Glucose, POC 134 70 - 199 mg/dL Assessment/Plan NEURO: -encourage day/night cycle CV: #Acute anterior STEMI with CAD s/p PCI to the LAD #HFrEF -s/p CABG x 4 with CTS, Dr. 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 -supportive care PULM: #Acute Hypoxic Respiratory Failure: 2/2 Confirmed Positive COVID-19 viral pneumonia, worsened today Pulmonary Support: O2 Therapy: Supplemental oxygen O2 Del Method: High humidity nasal cannula i.e.Optiflow, Airvo FiO2 (%): 60 % O2 Flow Rate (L/min): 60 L/min FiO2 (%): 60 % -requiring Optiflow therapy with intermittent BiPAP 2/2 worsened respiratory distress -encourage aggressive pulmonary toilet -goal SPO2 > 88% -STAT PE protocol CT scan completed today 2/2 hypoxia, negative, + COVID 19 changes -COVID medical management Consults: Cuff Matcher Endo: #Hyperglycemia, labile blood glucose -frequent glucose checks, NPH/SSI -HgbA1c > 13 this admission Consults: Endocrinology GI: -Nutrition plan: ADAT, encourage PO intake RENAL: Lab Results Component Value Date CREATININE 0.58 (L) 05/25/2021 #History of gross hematuria s/p cystoscopy with clot evacuation and [facility] [place] [facility] -Cystoscopy 05/14/21 with clot evacuation and fulguration -05/21/21 Coude placed, keep Osorio catheter today 2/2 worsening hypoxia with exertion Date 05/24/21 190 - 05/25/21 0659 05/25/21 0700 - 05/26/21 0659 Shift 1069-5127 24 Hour Total 4412-7522 0041-5022 24 Hour Total INTAKE P.O. 300 657 425 425 Shift Total(mL/kg) 300(3.8) 657(8.3) 425(5.3) 425(5.3) OUTPUT Urine(mL/kg/hr) 925 1800 550(0.6) 550 Shift Total(mL/kg) 925(11.6) 1800(22.6) 550(6.9) 550(6.9) NET -625 -1143 -125 -125 Weight (kg) 79.5 79.5 79.5 79.5 79.5 HEME: Lab Results Component Value Date HGB 10.0 (L) 05/25/2021 #ABLA 2/2 surgical procedure, critical illness -CBC in the AM -no indication for transfusion -transfuse for Hbg <7 -DVT prophylaxis: Lovenox ID: Lab Results Component Value Date WBC 11.2 (H) 05/25/2021 #Confirmed Positive COVID-19 pneumonia -Decadron x 10 days -Remdesivir course completed -spoke with CTS re: baricitinib, plan to start tonight, confirmed w/ Dr. Whiting -trend WBC and fever curve -supportive COVID care Culture Results: No flowsheet data found. Lab Results Component Value Date MICROBIOLOGY (.) 05/05/2021 Final Report: Greater than or equal to 100,000 colonies/ml of Yeast Britta pneumonia is very rare and requires a histopathological diagnosis. The recovery of these organisms in routine culture, in most cases, only represents overgrowth of the organism secondary to antimicrobial therapy. Please contact the microbiology laboratory at [phone] if identification or susceptibility testing is clinically indicated. Access: Right brachial PICC (05/18) PPx: SCD, Lovenox Assessment and plan has been reviewed with attending, Dr. Jaja Muñoz NP [phone], [place] 1 [facility] [employer] Department of Anesthesiology Division of Critical Care Medicine Cosigned by Dominique Wilkinson MD at 05/26/2021 5:38 PM STAFF FORESTER F FORESTER F FORESTER Associated attestation - Dominique Wilkinson MD - 05/26/2021 5:38 PM STAFF FORESTER I have seen and examined the patient on 05/25/21. I agree with or have edited the findings and plan of care as documented in the [place] note. G: Appears ill, more uncomfortable N: Awake, remains conversant CV: RRR, no JVD. Well healed sternum Resp: Coarse lungs bilaterally, requiring intermittent BiPap for resp insufficiency and desats GI: Abd soft, nontender, nondistended : Osorio non bloody MSK: mild LE ext edema Int: no rashes Dominique Wilkinson MD Section of Acute and Critical Care Surgery Department of [facility] * Shruthi Hu COTA - 05/25/2021 3:27 PM CST Occupational Therapy NO THERAPY OR OT CHARGES GIVEN THIS AFTERNOON D/T PATIENT STATING, I CANNOT DEAR, I'M TOO TIRED. PATIENT WAS EDUCATED PER THERAPIST THE IMPORTANCE BEHIND SESSIONS/ THERAPY NOTES FOR INSURANCE PURPOSES. PATIENT WAS RECEPTIVE OF INFORMATION BEING GIVEN, HOWEVER, STILL POLITELY DECLINED TO PARTICIPATE THIS AFTERNOON. CAITIE Tinsley 05/25/21 3:45 PM Cosigned by Chiara Fonseca, OT at 05/25/2021 5:44 PM STAFF FORESTER F FORESTER F FORESTER F FORESTER * Sandee Paez, PT - 05/25/2021 2:55 PM CST Physical Therapy PT PROGRESS NOTE Deepak Alvarado 60 y.o. 1960 Past Medical History: Diagnosis Date ??? Chronic obstructive pulmonary disease (CMS/HCC) (HCC) COPD ??? Coronary artery disease ??? Diabetes mellitus (HCC) ??? H/O heart artery stent 2006 ??? Hypertension Hypertension ??? ST elevation (STEMI) myocardial infarction (HCC) 05/01/2021 History reviewed. No pertinent surgical history. Patient Active Problem List Diagnosis ??? ST elevation myocardial infarction (STEMI) (HCC) TIME IN: 1455 TIME OUT: 1525 IHospital Course 04/29 Cystoscopy [facility] 04/30 STEMI, [facility] -> instent thrombosis, angioplasty, IABP, transfer to [facility] 05/04/21: Increased blood clot from osorio and obstruction with pain.?? 05/05/21: Brief asystole o/n w turning. Stable after. Self extubated in AM.?? 05/06/21: NAEON. Maintained on CPAP and optiflow.?? 05/07/21: NAEON. Up in chair at time of exam. TTF 05/10 near syncopal episode 05/14 cystoscopy with clot removal and fulguration of bleeding 05/17 readmit to ICU with pulmonary edema, lasix drip 05/18 Nasal cannula, on/off pressors, Negative VQ, ACTH Stim unremarkable 05/19 COVID positive, 15 L/NC, Remdesivir, dexamethasone 05/21 coude catheter placed, remains on optiflow, updated 05/22 increase seroquel, on optiflow 40L 75% 05/23 HF meds started, Lasix 40mg 05/24 FiO2 at 60% ?? ' SUBJECTIVE 'I am so tired - I don't think I can do it today.' 'I just want hot coffee'. MENTAL STATUS/ORIENTATION: lethargic this - difficult keeping eyes open. Required coaxing evento perform LE supine exercises PAIN: Pre-therapy pain level: 0/10 Pain location: Pain intervention: Post-therapy pain level/response to intervention: 0/10 OBJECTIVE PRECAUTIONS: fall, sternal, contact/airborne - COVID APPEARANCE/POSTURE: patient lying in bed with Optiflow VITAL SIGNS: Resting BP: 107/65 Post-activity BP: 109/58 Resting heart rate: 96 Post-activity heart rate: 90 Resting O2 sat: 94% Optiflow Post-activity O2 sat: 96% MOBILITY DOCUMENTATION: Bed Mobility/Transfers: too lethargic for mobility this - coaxing just to perform LE exercise. Gait: not appropriate this date. TREATMENT: Supine bilateral LE ankle DF/PF, SAQ, SLR, hip abd/adduction, hip IR/ER 10-20 reps max assist. APPEARANCE/POSTURE (end of session): patient repositioned in bed with call light. RN aware of session and hand-off given to BLOOD. EDUCATION: HEP RESPONSE TO EDUCATION: needs reinforcement ASSESSMENT Activity tolerance/response to P.T.: needed coaxing to participate, c/o fatigue and lethargy Barriers to learning: Physical Barriers to discharge: Limited participation, Decreased endurance and Medical complications Patient continues progressing toward previously set goals which remain appropriate at this time. PLAN Patient to be seen for P.T. daily 3-5x times per week to address previously established deficits and goals. DISCHARGE LOCATION RECOMMENDATIONS: INPATIENT REHABILITATION PENDING QUALIFYING CRITERIA when medically appropriate. If this is the last note, please consider this the discharge summary. F FORESTER * Anibal Lara MD - 05/25/2021 1:43 PM CST Hospitalist Progress Note Name: Deepak Alvarado Admission Date: 05/01/2021 Today's Date: 05/25/2021 Subjective: Pt seen and examined Clinical course: Overall pt condition has improved. Still on 4L per NC today 05/16: feels ok today, on 5L per NC 05/17: transferred to ICU for worsening respiratory distress requiring more O2 05/20: remains in the ICU, on Optiflow today 05/21: about the same today, Optiflow 05/22: still on Optiflow, back on Insulin gtt 05/23: no major changes , still on Optiflow 05/24: remains on Optiflow 05/25: about the same Objective: Vitals: 05/25/21 0806 05/25/21 0900 05/25/21 1000 05/25/21 1100 BP: 116/76 108/75 105/64 BP Location: Patient Position: Pulse: 85 87 91 Resp: 25 24 25 Temp: TempSrc: SpO2: 93% 94% 96% 96% Weight: Height: Wt Readings from Last 3 Encounters: 05/23/21 79.5 kg (175 lb 4.3 oz) 08/27/13 114.3 kg (252 lb) 10/19/12 111.6 kg (246 lb) I/O last 3 completed shifts: In: 1304 [P.O.:777; I.V.:527] Out: 2590 [Urine:2590] I/O this shift: In: - Out: 225 [Urine:225] Scheduled Meds Current Facility-Administered Medications Medication Dose Route Frequency Provider Last Rate Last Admin ??? acetaminophen (TYLENOL) tablet 650 mg 650 mg oral Q6H PRN Eleonora Duarte NP 650 mg at 05/21/21 1545 ? ? al & mag hydroxide tjkwmiwwgxs-ixbeqvvognsojsq-trnqlmscz-nystatin (MAGIC MOUTHWASH) suspension 1-1-1-1 20 mL swish & spit Q4H PRN Elena Kelly NP ??? albuterol 2.5 mg /3 mL (0.083 %) nebulizer solution 2.5 mg 2.5 mg nebulization Q4H PRN (RT) Ralf Tomlinson MD 2.5 mg at 05/17/21 0224 ??? albuterol HFA (PROVENTIL HFA,VENTOLIN HFA,PROAIR HFA) 90 mcg/actuation inhaler 8 puff 8 puff inhalation Q4H While awake (RT) Ralf Tomlinson MD 8 puff at 05/25/21 0805 ??? aspirin enteric coated tablet 81 mg 81 mg oral Daily Varsha Crowder NP 81 mg at 05/25/21 0855 ??? atorvastatin (LIPITOR) tablet 80 mg 80 mg oral Nightly Rhina Granados MD 80 mg at 05/24/21 2048 ??? dapagliflozin (FARXIGA) tablet 10 mg 10 mg oral Daily Stephen Melgar MD 10 mg at 05/25/21 0855 ??? dexAMETHasone (DECADRON) 4 mg/mL injection 6 mg 6 mg intravenous Daily Silviano Huddleston NP 6 mg at 05/25/21 0854 ??? dextrose oral liquid liquid 15 g 15 g oral Q15 Min PRN Silviano Huddleston NP Or ??? dextrose (D10W) 10% bolus 250 mL 250 mL intravenous Q15 Min PRN Silviano Huddleston NP ??? dextrose oral liquid liquid 15 g 15 g oral Q15 Min PRN Anibal Lara MD ??? docusate sodium (COLACE) capsule 100 mg 100 mg oral BID Rhina Granados MD 100 mg at 05/25/21 0855 ??? enoxaparin (LOVENOX) syringe 40 mg 40 mg subcutaneous Daily-2100 Rhina Granados MD 40 mg at107/25/202047 ??? glucagon injection 1 mg 1 mg intramuscular Q30 Min PRN Anibal Lara MD ??? glucagon injection 1 mg 1 mg intramuscular Q30 Min PRN Silviano Huddleston NP ??? guaiFENesin (ROBITUSSIN) 20 mg/mL oral liquid 200 mg 200 mg oral QID PRN Caleb Toth PA 200 mg at 05/21/21 0810 ??? insulin lispro (HumaLOG, ADMELOG) 100 unit/mL injection 0-10 Units 0-10 Units subcutaneous TID with meals Silviano Huddleston NP 2 Units at 05/24/21 173 ??? insulin lispro (HumaLOG, ADMELOG) 100 unit/mL injection 0-5 Units 0-5 Units subcutaneous Nightly Silviano Huddleston NP 1 Units at 05/24/212048 ??? insulin lispro (HumaLOG, ADMELOG) 100 unit/mL injection 7 Units 0.083 Units/kg subcutaneous TIDwith meals Silviano Huddleston NP 7 Units at 05/24/21 173 ??? insulin NPH (HumuLIN N, NovoLIN N) 100 unit/mL injection 10 Units 10 Units subcutaneous Q6H [facility] NP 10 Units at 05/25/21 1251 ??? ivabradine (CORLANOR) tablet 5 mg 5 mg oral BID with meals (bkfst, dinner) Stephen Melgar MD 5mg at 05/25/21 0856 ??? lidocaine (LIDODERM) 5 % patch 1 patch 1 patch transdermal Daily Rosy Muñoz NP1 patch at 05/25/21 0936 ??? midodrine (PROAMATINE) tablet 15 mg 15 mg oral TID Silviano Huddleston NP 15 mg at 05/25/21 0855 ??? ondansetron (ZOFRAN) injection 4 mg 4 mg intravenous Q6H PRN Rhina Granados, MD ??? pantoprazole DR (PROTONIX) extended release tablet 40 mg 40 mg oral Daily Rhina Granados MD40 mg at 05/25/21 0855 ??? polyethylene glycol (MIRALAX) packet 17 g 17 g oral Daily PRN Rhina Granados MD ??? QUEtiapine (SEROquel) tablet 50 mg 50 mg oral Nightly Silviano Huddleston NP 50 mg at ??? sodium chloride 0.9% flush 0.5-20 mL 0.5-20 mL intra-catheter Q8H [facility] Rhina Granados MD 20 mL at 05/25/21 0515 ??? spironolactone (ALDACTONE) tablet 25 mg 25 mg oral Daily Stephen Melgar MD 25 mg at 05/25/21 0855 ??? tamsulosin (FLOMAX) extended release capsule 0.4 mg 0.4 mg oral Daily with dinner Elena Kelly NP 0.4 mg at 05/24/21 1730 ??? acetaminophen ? ? al & mag hydroxide vpuslscmnbm-gtzgcqvjyimfjty-bviwkggow-nystatin ??? albuterol ??? dextrose OR dextrose ??? dextrose OR [DISCONTINUED] dextrose ??? glucagon ??? glucagon ??? guaiFENesin ??? ondansetron ??? polyethylene glycol Physical Exam: General: alert, cooperative, no distress, appears stated age HEENT: Head:normacephalic, Eyes: Perrla, EOMI bilaterally, nasal and oral mucosal pink and moist Heart: normal rate, regular rhythm, normal S1, S2, no murmurs, rubs, clicks or gallops Lungs: clear to auscultation, no wheezes or rales and unlabored breathing Abdomen: soft, nontender, nondistended, no masses or organomegaly Extremities: peripheral pulses normal, no pedal edema, no clubbing or cyanosis Neuro: alert, oriented x 3, no defects noted in general exam. Lab Data Laboratory review: Chemistry CMP: Lab Results Component Value Date BUNSER 24 05/25/2021 CALCIUM 9.0 05/25/2021 CO2 23 05/25/2021 CHLORIDE 96 (L) 05/25/2021 CREATININE 0.58 (L) 05/25/2021 GLUCOSE 158 05/25/2021 GLUCOSE 222 (H) 05/25/2021 POTASSIUM 4.2 05/25/2021 SODIUM 132 (L) 05/25/2021 , CBC: Lab Results Component Value Date WBC 11.2 (H) 05/25/2021 RBC 3.46 (L) 05/25/2021 HGB 10.0 (L) 05/25/2021 HCT 31.6 (L) 05/25/2021 MCV 91.3 05/25/2021 MCH 28.9 05/25/2021 MCHC 31.6 (L) 05/25/2021 RDWCV 13.2 05/25/2021 RDWSD 44.2 05/25/2021 MPV 11.7 05/25/2021 NRBCABS 0.00 05/25/2021 , Coags: No results found for: PT, PTT, APTT, FFN, FIBRINOGEN, INR, ACTIVATEDCL, Lipids: Lab Results Component Value Date CHOL 131 05/24/2021 HDL 31 (L) 05/24/2021 LDLCALC 73 05/24/2021 TRIG 133 05/24/2021 CHOLHDL 4 05/24/2021 , Cardiac Enzymes: No results found for: CKTOTAL, CKMB, CKMBINDEX, TROPONINT and POC Glucose: Lab Results Component Value Date GLUCOSE 158 05/25/2021 GLUCOSE 222 (H) 05/25/2021 Home Medications have been reviewed and updated on pt's list Assessment and Plan Acute resp failure - self ext 05/05/21 -Lung infiltrates - pulm vascular congestion/CHF, and suspected pneumonia - completed Zosyn -COVID19 (+) 05/19 -started on Decadron and Remdesivir 05/19 -PRN IV Lasix -pt was on BiPAP last night, today on Optiflow -pulmonology follows -per cards added Farxiga, Aldactone, and Corlanor 05/23 Near syncope/Syncope episode, probable vaso vagal, monitor ?? Acute anterior STEMI with CAD , s/p PCI to LAD -s/p CABG x 4 05/04 given re thrombosis of existing stents -s/p IABP, removed 05/06 - ASA, ??statins, off Plavix due to hematuria, BBs on hold due to hypotension ?? Post CABG cardiogenic shock, hypotensive again - s/p??Dobutamine gtt and Levophed -now on Midodrine ?? Ventricular fibrillation - briefly on 05/03 - treated with Amiodarone and Dobutamine gtt, off them ?? Gross Hematuria ?- in a pt with hx of ??cystoscopy, -clot evacuation and transurethral resection of bladder tumor at [facility] -s/p 20??German three way catheter -holding Plavix -cysto 05/14 with clot evacuation and fulguration ? Type 2 diabetes.??- Back on Insulin gtt ?? Acute blood loss anemia ; -s/p PRBC transfusions in ICU - monitor HH, today 10.0 ?? Mild hyponatremia, monitor ?? Hx of ??Tobacco use. ?? DVT prophylaxis :Lovenox Pt will need continued inpatient management for the above medical issues. Code status: full Anibal Hughes MD [facility] Hospitalist 05/25/2021 1:43 PM F FORESTER * Ralf Tomlinson MD - 05/25/2021 1:37 PM CST Pulmonary Daily Progress Chief complaint/reason for consult: Respiratory failure. Interval History: On optiflow 50%/50L afebrile occ dyspnea Remains on dexamethasone and remdesivir. COVID positive 05/19/21 Presenting History: 60 yo man w COPD, DM, CAD/stents admitted 05/01/21 with chest pain. Had recent hematuria as well. Workup revealed an acute MT. Cath showed multi-vessel CAD. Had balloon pump placed. CABG x 4 done on 05/04/21. He was continued on mechanical ventilation and self extubated this AM (05/05/21). He is on multiple pressors. Sedated with precedex. Some tachypnea. A balloon pump is in place. Current tobacco use. COPD listed as prior diagnosis. No inhalers on home med list. Allergies: Allergies Allergen Reactions ??? Metoclopramide Medications: Scheduled Meds:albuterol HFA, 8 puff, inhalation, Q4H While awake (RT) aspirin, 81 mg, oral, Daily atorvastatin, 80 mg, oral, Nightly dapagliflozin, 10 mg, oral, Daily dexAMETHasone, 6 mg, intravenous, Daily docusate sodium, 100 mg, oral, BID enoxaparin, 40 mg, subcutaneous, Daily-2100 insulin lispro, 0-10 Units, subcutaneous, TID with meals insulin lispro, 0-5 Units, subcutaneous, Nightly insulin lispro, 0.083 Units/kg, subcutaneous, TID with meals insulin NPH, 10 Units, subcutaneous, Q6H LEAH ivabradine, 5 mg, oral, BID with meals (bkfst, dinner) lidocaine, 1 patch, transdermal, Daily midodrine, 15 mg, oral, TID pantoprazole DR, 40 mg, oral, Daily QUEtiapine, 50 mg, oral, Nightly sodium chloride 0.9%, 0.5-20 mL, intra-catheter, Q8H LEAH spironolactone, 25 mg, oral, Daily tamsulosin, 0.4 mg, oral, Daily with dinner Continuous Infusions: PRN Meds:.??? acetaminophen ? ? al & mag hydroxide mgauatrmnvu-rcsugudxmaazcdm-fvjwjtxfr-nystatin ??? albuterol ??? dextrose OR dextrose ??? dextrose OR [DISCONTINUED] dextrose ??? glucagon ??? glucagon ??? guaiFENesin ??? ondansetron ??? polyethylene glycol ROS Above review of system reviewed on 05/25/2021 Vitals: Vitals: 05/25/21 0806 05/25/21 0900 05/25/21 1000 05/25/21 1100 BP: 116/76 108/75 105/64 BP Location: Patient Position: Pulse: 85 87 91 Resp: 25 24 25 Temp: TempSrc: SpO2: 93% 94% 96% 96% Weight: Height: Temp (24hrs), Av.3 ??C (97.4 ??F), Min:35.8 ??C (96.5 ??F), Max:36.9 ??C (98.4 ??F) FiO2 (%): [50 %-60 %] 50 % Intake/Output Summary (Last 24 hours) at 05/25/2021 1337 Last data filed at 05/25/2021 1100 Gross per 24 hour Intake 300 ml Output 1825 ml Net -1525 ml Physical Exam Constitutional: General: He is not in acute distress. Appearance: He is well-developed. HENT: Head: Normocephalic and atraumatic. Eyes: Conjunctiva/sclera: Conjunctivae normal. Neck: Thyroid: No thyromegaly. Cardiovascular: Rate and Rhythm: Normal rate and regular rhythm. Heart sounds: No murmur heard. Pulmonary: Effort: Pulmonary effort is normal. No respiratory distress. Breath sounds: Normal breath sounds. No wheezing, rhonchi or rales. Chest: Comments: Sternotomy incision Abdominal: General: Bowel sounds are normal. Palpations: Abdomen is soft. Skin: General: Skin is warm and dry. Neurological: Mental Status: He is alert. Lab/Radiology/Diagnostic Review: Labs: Recent Labs Lab Units 05/25/21 0300 05/24/21 0348 05/23/21 0318 WBC K/cumm 11.2* 10.7* 10.0* HEMOGLOBIN g/dL 10.0* 9.6* 9.0* HEMATOCRIT % 31.6* 29.5* 27.8* PLATELETS K/cumm 459* 457* 408* Recent Labs Lab Units 05/25/21 1223 05/25/21 0920 05/25/21 0300 05/24/21 0646 05/24/21 0348 05/23/21 0402 05/23/21 0318 05/19/21 0143 05/18/21 2137 SODIUM mmol/L -- -- 132* -- 133* -- 132* < > -- POTASSIUM PLASMA mmol/L -- -- 4.2 -- 4.3 -- 3.5 < > -- CHLORIDE mmol/L -- -- 96* -- 96* -- 95* < > -- CO2 mmol/L -- -- 23 -- 24 -- 23 < > -- ANIONGAP mmol/L -- -- 13 -- 13 -- 14 < > -- GLUCOSE mg/dL -- -- 222* < > 142 < > 141 < > -- POC GLUCOSE MONITOR mg/dL 158 97 -- < > -- < > 137 < > -- BUN SERUM mg/dL -- -- 24 -- 23 -- 21 < > -- CREATININE mg/dL -- -- 0.58* -- 0.60* -- 0.48* < > -- CALCIUM mg/dL -- -- 9.0 -- 8.8 -- 8.4* < > -- ALBUMIN g/dL -- -- -- -- -- -- -- -- 3.6 ALK PHOS Units/L -- -- -- -- -- -- -- -- 86 ALT Units/L -- -- -- -- -- -- -- -- 18 AST Units/L -- -- -- -- -- -- -- -- 60* BILIRUBIN TOTAL mg/dL -- -- -- -- -- -- -- -- 0.6 < > = values in this interval not displayed. Recent Labs Lab Units 05/25/21 0951 05/18/211952 PH ART 7.47* 7.45 PCO2 ART mmHg 32* 32* PO2 ART mmHg 72* 58* HCO3 ART (CALC) mmol/L 24 23 BASE EXC ART mmol/L 0 -2 O2 SAT ART (JOELLE) % 95 89* Imaging: CT chest 05/19/21: b gg inf, severe emphysema CT chest 05/25/21: b inf, emphysema, no PE Other diagnostic tests: I have personally reviewed above laboratory findings, chest imaging, and diagnostic tests 05/25/2021 Assessment and Plan: Acute respiratory failure Acute MT w CAD s/p CABG x 4 on 05/04/21, past hx multiple stents Cardiogenic shock, resolved Cardiomyopathy EF 40% V fib COPD: severe emphysematous changes on CT Anemia Hematuria s/p cystoscopy/fulguration COVID 19, diagnosed 05/19/21, resp status began worsening 05/15/21 Possible bacterial pneumonia, treated ?? Recs: Oxygen support, adjust as needed Dexamethasone started 05/19 On remdesivir Incentive spirometry Scheduled albuterol Scheduled bronchodilators Increase activity as tolerated Chart reviewed F FORESTER * Yves Weinberg MD - 05/25/2021 12:09 PM CST Nephrology Progress Note [facility] SUBJECTIVE 05/25/21 Doing fair. All labs reviewed. Renal fn nl. Na 132. Overall slowly improving. 05/24/21 Pt seen/examined. All labs and data reviewed. Getting IV lasix PRN. Na 133, lytes and renal fn stable. 05/23/21 Pt seen/examined. All labs reviewed. Receiving K phos. BP soft, on hi dose midodrine. Na 132. I gave lasix 40 iv times 1 for falling UO. Remains in ICU. 05/22/21 Pt seen/examined. All labs and data reviewed. Na 134, Cr 0.62. Dyspnea better. Eager to go home but remains in ICU. Stable renal fn and lytes. OK for loop diuretics PRN. Avoid thiazides. 05/21/21 Pt seen/examined. All labs reviewed. Off lasix drip. Still dyspneic. Renal fn better. Na 135. 05/20/21 Pt seen/examined. All labs and data reviewed. COVID pos. On Dex and remdisivir. On lasix drip. Na 130, Cr 1.44. 05/19 Cr 1.41 Na 130. Started on Corlanor. Appears stable. BP remains very soft. UO not accurate. 05/17 Transferred to ICU for hi O2 requirements. Has left nostril epistaxis. On low dose pressors and lasix and insulin drip. Na 128, should improve with loop diuresis. Cr 1.2. 05/16 Creatinine stable and sodium trending up.On IV lasix,lytes wnl.Osoroi out,having some problems with retention- nurses in contact with urology,doing bladder scans. 05/15/21 Doing fair. Osorio out. Has not voided yet. Na 131 with loop diuresis and improved. All labs and data reviewed. Excellent UO. Doing fair. Some flank pain and mild dyspnea. Na 127 and a little lower. BP better. Agreeable to cysto, but urology planning on conservative tx. Will start loop diuresis. OBJECTIVE Vitals: Vitals: 05/25/21 0806 05/25/21 0900 05/25/21 1000 05/25/21 1100 BP: 116/76 108/75 105/64 BP Location: Patient Position: Pulse: 85 87 91 Resp: 25 24 25 Temp: TempSrc: SpO2: 93% 94% 96% 96% Weight: Height: Intake/Output Summary (Last 24 hours) at 05/25/2021 1209 Last data filed at 05/25/2021 1100 Gross per 24 hour Intake 300 ml Output 1825 ml Net -1525 ml REVIEW OF SYSTEMS Review of Systems Epistaxis, dyspnea. Constitutional: Negative. HENT: Negative. Eyes: Negative. Respiratory: Negative. Cardiovascular: Negative. Gastrointestinal: Negative. Genitourinary: Negative. Musculoskeletal: Negative. Skin: Negative. Allergic/Immunologic: Negative. Hematological: Negative. All other systems reviewed and are negative. PHYSICAL EXAM Physical Exam Constitutional: Appears well-developed. O2 on HENT: wnl Head: Normocephalic. Eyes: Pupils are equal, round, and reactive to light. Neck: Normal range of motion. Neck supple. Cardiovascular: Normal rate. Pulmonary/Chest: Effort normal and breath sounds normal. Abdominal: Soft. NT,active BS Musculoskeletal: Normal range of motion. Neurological: Alert, oriented. Skin: Skin is warm. Nursing note and vitals reviewed. MEDICATIONS Current Facility-Administered Medications: ??? acetaminophen (TYLENOL) tablet 650 mg, 650 mg, oral, Q6H PRN, Eleonora Duarte, EFREN, 650 mg at 05/21/21 1545 ? ? al & mag hydroxide iqyuycighef-xgasfkkcehemrsv-tcwqpxrye-nystatin (MAGIC MOUTHWASH) suspension 1-1-1-1, 20 mL, swish & spit, Q4H PRN, Elena Kelly NP ??? albuterol 2.5 mg /3 mL (0.083 %) nebulizer solution 2.5 mg, 2.5 mg, nebulization, Q4H PRN (RT),Ralf Tomlinson MD, 2.5 mg at 05/17/21 0224 ??? albuterol HFA (PROVENTIL HFA,VENTOLIN HFA,PROAIR HFA) 90 mcg/actuation inhaler 8 puff, 8 puff, inhalation, Q4H While awake (RT), Ralf Tomlinson MD, 8 puff at 05/25/21 0805 ??? aspirin enteric coated tablet 81 mg, 81 mg, oral, Daily, Varsha Crowder NP, 81 mg at 05/25/21 0855 ??? atorvastatin (LIPITOR) tablet 80 mg, 80 mg, oral, Nightly, Rhina Granados MD, 80 mg at 05/24/212047 ??? dapagliflozin (FARXIGA) tablet 10 mg, 10 mg, oral, Daily, Stephen Melgar MD, 10 mg at ??? dexAMETHasone (DECADRON) 4 mg/mL injection 6 mg, 6 mg, intravenous, Daily, Silviano Huddleston NP, 6 mg at 05/25/21 0854 ??? dextrose oral liquid liquid 15 g, 15 g, oral, Q15 Min PRN OR dextrose (D10W) 10% bolus 250 mL, 250 mL, intravenous, Q15 Min PRN, Silviano Huddleston NP ??? dextrose oral liquid liquid 15 g, 15 g, oral, Q15 Min PRN OR [DISCONTINUED] dextrose (D10W)10% bolus 250 mL, 250 mL, intravenous, Q15 Min PRN, Anibal Lara MD ??? docusate sodium (COLACE) capsule 100 mg, 100 mg, oral, BID, 100 mg at 05/25/21 08 OR [DISCONTINUED] docusate (COLACE) 10 mg/mL oral liquid 100 mg, 100 mg, feeding tube, BID, Rhina Granados MD, 100 mg at 05/05/21 0842 ??? enoxaparin (LOVENOX) syringe 40 mg, 40 mg, subcutaneous, Daily-2100, Rhina Granados MD, 40 mg at 05/24/212047 ??? glucagon injection 1 mg, 1 mg, intramuscular, Q30 Min PRN, Anibal Lara MD ??? glucagon injection 1 mg, 1 mg, intramuscular, Q30 Min PRN, Silviano Huddleston NP ??? guaiFENesin (ROBITUSSIN) 20 mg/mL oral liquid 200 mg, 200 mg, oral, QID PRN, Caleb Toth PA, 200 mg at 05/21/21 0810 ??? insulin lispro (HumaLOG, ADMELOG) 100 unit/mL injection 0-10 Units, 0-10 Units, subcutaneous, TID with meals, Silviano Huddleston NP, 2 Units at 05/24/211730 ??? insulin lispro (HumaLOG, ADMELOG) 100 unit/mL injection 0-5 Units, 0-5 Units, subcutaneous, Nightly, Silviano Huddleston NP, 1 Units at 05/24/212048 ??? insulin lispro (HumaLOG, ADMELOG) 100 unit/mL injection 7 Units, 0.083 Units/kg, subcutaneous, TID with meals, Silviano Huddleston, EFREN, 7 Units at 05/24/211730 ??? insulin NPH (HumuLIN N, NovoLIN N) 100 unit/mL injection 10 Units, 10 Units, subcutaneous, Q6H LEAH, Rosy Muñoz NP ??? ivabradine (CORLANOR) tablet 5 mg, 5 mg, oral, BID with meals (bkfst, dinner), Stephen Melgar MD, 5 mg at 05/25/21 0856 ??? lidocaine (LIDODERM) 5 % patch 1 patch, 1 patch, transdermal, Daily, Rosy Muñoz NP, 1 patch at 05/25/21 0936 ??? midodrine (PROAMATINE) tablet 15 mg, 15 mg, oral, TID, Silviano Huddleston NP, 15 mg at 05/25/21 0855 ??? ondansetron (ZOFRAN) injection 4 mg, 4 mg, intravenous, Q6H PRN, Rhina Granados MD ??? pantoprazole DR (PROTONIX) extended release tablet 40 mg, 40 mg, oral, Daily, Rhina Granados MD, 40 mg at 05/25/21 0855 ??? polyethylene glycol (MIRALAX) packet 17 g, 17 g, oral, Daily PRN, Rhina Granados MD ??? QUEtiapine (SEROquel) tablet 50 mg, 50 mg, oral, Nightly, Silviano Huddleston NP, 50 mg at 05/24/212047 ??? sodium chloride 0.9% flush 0.5-20 mL, 0.5-20 mL, intra-catheter, Q8H [facility], Rhina Granados MD, 20 mL at 05/25/21 0515 ??? spironolactone (ALDACTONE) tablet 25 mg, 25 mg, oral, Daily, Stephen Melgar MD, 25 mg at 05/25/21 0855 ??? tamsulosin (FLOMAX) extended release capsule 0.4 mg, 0.4 mg, oral, Daily with dinner, Elena Kelly NP, 0.4 mg at 05/24/21 1730 Lab/Radiology/Diagnostic Review: Recent Results (from the past 24 hour(s)) POCT glucose Collection Time: 05/24/21 12:18 PM Result Value Ref Range Glucose, POC 157 70 - 199 mg/dL POCT glucose Collection Time: 05/24/21 5:04 PM Result Value Ref Range Glucose, POC 164 70 - 199 mg/dL POCT glucose Collection Time: 05/24/21 7:52 PM Result Value Ref Range Glucose, POC 179 70 - 199 mg/dL POCT glucose Collection Time: 05/24/21 11:31 PM Result Value Ref Range Glucose, POC 135 70 - 199 mg/dL Phosphorus Collection Time: 05/25/21 3:00 AM Result Value Ref Range Phosphorus, pl 3.0 2.3 - 4.5 mg/dL Magnesium Collection Time: 05/25/21 3:00 AM Result Value Ref Range Magnesium 1.7 1.4 - 2.5 mg/dL CBC without differential Collection Time: 05/25/21 3:00 AM Result Value Ref Range WBC 11.2 (H) 3.8 - 9.9 K/cumm Hgb 10.0 (L) 13.0 - 17.5 g/dL Hct 31.6 (L) 38.9 - 50.3 % Plt 459 (H) 150 - 400 K/cumm MPV 11.7 9.1 - 12.3 fL RBC 3.46 (L) 4.30 - 5.80 M/cumm MCV 91.3 81.3 - 96.4 fL MCH 28.9 27.1 - 33.3 pg MCHC 31.6 (L) 32.3 - 35.7 g/dL RDW CV 13.2 11.1 - 14.9 % RDW SD 44.2 35.7 - 48.1 fL NRBC abs 0.00 0.00 - 0.01 K/cumm Basic metabolic panel Collection Time: 05/25/21 3:00 AM Result Value Ref Range Sodium 132 (L) 135 - 145 mmol/L Potassium, pl 4.2 3.3 - 4.9 mmol/L Chloride 96 (L) 97 - 110 mmol/L CO2 23 22 - 32 mmol/L Anion gap 13 2 - 15 mmol/L BUN 24 8 - 25 mg/dL Creatinine 0.58 (L) 0.80 - 1.30 mg/dL Glucose 222 (H) 70 - 199 mg/dL Calcium 9.0 8.5 - 10.3 mg/dL eGFR Collection Time: 05/25/21 3:00 AM Result Value Ref Range eGFR 112 mL/min/1.73 m2 POCT glucose Collection Time: 05/25/21 9:20 AM Result Value Ref Range Glucose, POC 97 70 - 199 mg/dL Blood gas, arterial Collection Time: 05/25/21 9:51 AM Result Value Ref Range pH, Art 7.47 (H) 7.35 - 7.45 PCO2, Arterial 32 (L) 35 - 45 mmHg PO2, Arterial 72 (L) 83 - 108 mmHg HCO3 Art (Calculated) 24 20 - 30 mmol/L BE, art 0 mmol/L O2 Sat Art (Measured) 95 90 - 95 % XR Chest 1 View - Portable - in AM Result Date: 05/11/2021 Narrative: EXAMINATION: XR CHEST 1 VIEW HISTORY: The patient is a 60-year-old male who has had cardiac surgery. Comparison made with the previous study dated 05/10/2021. TECHNIQUE: AP portable view of the chest. FINDINGS: Lungs clear. Heart not enlarged. Aortic atherosclerosis. No failure. The right IJ [place] catheter has been retracted with its tip in the distal superior vena cava. Impression: IMPRESSION: No failure. Electronically signed by: Elvira Blackman M.D. XR Chest 1 View - Portable - in AM Result Date: 05/10/2021 Narrative: EXAMINATION: XR CHEST 1 VIEW DATE: 05/10/2021 2:40 AM COMPARISON: 05/09/2021 HISTORY: 60-year-old man cardiac surgery follow-up FINDINGS:Compared with study the previous day, significant improvement. There is cardiomegaly with postsurgical changes with continued and decreasing failure. Bibasilar atelectasis with left pleural fluid decreasing. No pneumothorax. [place] catheter remainsin place Impression: Decreasing failure, atelectasis and left effusion. Electronically signed by: Deandre Lomeli M.D. XR Chest 1 View - Portable - in AM Result Date: 05/09/2021 Narrative: EXAMINATION: XR CHEST 1 VIEW DATE: 05/09/2021 4:10 AM HISTORY: 60-year-old man cardiac surgery follow-up FINDINGS:Compared with study the previous day, significant improvement. There is cardiomegaly with postsurgical changes with continued but decreasing failure. Bibasilar atelectasis with left pleural fluid decreasing. No pneumothorax. [place] catheter remains in place Impression: Decreasing failure, atelectasis and left effusion. Electronically signed by: Deandre Lomeli M.D. XR Chest 1 View - Portable - in AM Result Date: 05/08/2021 Narrative: EXAMINATION: XR CHEST 1 VIEW DATE: 05/08/2021 4:15 AM HISTORY: 60-year-old man cardiac surgery follow-up FINDINGS:Compared with study the previous day, significant improvement. There is cardiomegaly with postsurgical changes with continued but decreasing failure. Bibasilar atelectasis with left pleural fluid. No pneumothorax. [place] catheter remains in place Impression: Decreasing failure. No pneumothorax. Electronically signed by: Deacon Cummings M.D. XR Chest 1 View - Portable - in AM Result Date: 05/07/2021 Narrative: EXAMINATION: XR CHEST 1 VIEW DATE: 05/07/2021 3:55 AM HISTORY: 60-year-old man follow-upcardiac surgery FINDINGS:Compared with study of the previous day, postsurgical changes in the heartand mediastinum with cardiomegaly are stable. [place] catheter remains in place. Left thoracostomy tube remains in place. No pneumothorax. Pulmonary vascular congestion with interstitial lung disease remain prominent. Impression: Persistent prominent interstitial lung disease with failure. Electronically signed by: Deacon Cummings M.D. XR Chest 1 View - Portable - in AM Result Date: 05/06/2021 Narrative: EXAMINATION: XR CHEST 1 VIEW DATE: 05/06/2021 4:05 AM INDICATION: Cardiac surgery. COMPARISON: 05/05/2021. FINDINGS: No pneumothorax or pleural effusion. Similar-appearing pulmonary vascular congestion and interstitial opacities most notable in the bilateral upper lobes consistent with pulmonary edema. Pulmonary catheter catheter, left thoracostomy tube, and mediastinal drain are appropriately position. Intra-aortic balloon pump is appropriately positioned. Interval removal of endotracheal tube. Impression: 1. Interval removal of endotracheal tube. Remaining tubes and lines are appropriately positioned. 2. Similar-appearing cardiomegaly, pulmonary vascular congestion, and prominent bilateralinterstitial markings suggestive of interstitial pulmonary edema. Electronically signed by: Richard Zhao II, D.O. XR Chest 1 View - Portable - in AM Result Date: 05/05/2021 Narrative: EXAMINATION: XR CHEST 1 VIEW DATE: 05/05/2021 4:15 AM HISTORY: 60-year-old man cardiac surgery follow-up FINDINGS:Compared with the study of the prior day, tubes and catheters remain satisfactorily positioned. Worsening pulmonary vascular congestive changes are seen. Cardiomegaly with postsurgical changes stable. No pneumothorax. Impression: Increasing failure. Electronically signed by: Deacon Cummings M.D. XR Chest 1 Vw Portable Result Date: 05/05/2021 Narrative: EXAMINATION: XR CHEST 1 VIEW DATE: 05/04/2021 8:40 PM HISTORY: 60-year-old man coronary artery bypass follow-up FINDINGS:Compared with the study of earlier the same day, postsurgical changes now evident within the heart and mediastinum with cardiomegaly. Interval placement of endotracheal tube, nasogastric tube, [place] catheter, left thoracostomy tube and mediastinal drain all in satisfactory position. No pneumothorax. Interstitial lung disease with mild pulmonary vascular congestive changes. Aortic balloon pump is no longer seen. Impression: Tube placements with postsurgical changes with cardiomegaly with interstitial lung disease and mild failure with no pneumothorax. Electronically signed by: Deacon Cummings M.D. XR Chest 1 Vw Portable Result Date: 05/04/2021 Narrative: EXAMINATION: XR CHEST 1 VIEW DATE: 05/04/2021 9:05 AM HISTORY: Coronary artery disease FINDINGS:Comparison is made with study of 2 days earlier. Cardiomegaly, COPD with interstitial lung disease stable. Mild failure. Aortic balloon pump stable in position at the proximal descending aorta. No pneumothorax. No new infiltrates. Impression: Stable appearance. COPD cardiomegaly, with mild failure suspected. Electronically signed by: Deacon Cummings M.D. XR Chest 1 Vw Portable Result Date: 05/02/2021 Narrative: EXAMINATION: XR CHEST 1 VIEW DATE: 05/02/2021 5:15 AM INDICATION: Intra-aortic balloon pump. COMPARISON: 05/01/2021. FINDINGS: Appropriately positioned intra-aortic balloon pump appears unchanged. No pneumothorax or pleural effusion. Mixed reticular and alveolar opacities demonstrated inall lung lobes appear most significant in the upper lobes and perihilar regions, unchanged. Impression: 1. Appropriately positioned intra-aortic balloon pump. 2. Similar mixed reticular and alveolar opacities most notable in the bilateral upper lobes and perihilar region. Electronically signed by: Richard Lopez II, D.O. XR Chest 1 Vw Portable Result Date: 05/02/2021 Narrative: EXAMINATION: XR CHEST 1 VIEW DATE: 05/01/2021 8:15 PM INDICATION: Hypoxia. COMPARISON: None. FINDINGS: No pneumothorax. No pleural effusion. Mixed reticular and alveolar opacities are demonstrated in all lung lobes but demonstrate an upper lobe and perihilar predominance. Findings may represent pulmonary edema on background of centrilobular emphysematous changes. Underlying infectious process not entirely excludable. Cardiac mediastinal silhouette is stable in appearance. No acute osseous abnormality. Impression: Mixed reticular and alveolar opacities are demonstrated in all lung lobes but demonstrate an upper lobe and perihilar predominance. Findings may represent pulmonary edema on background ofcentrilobular emphysematous changes. Electronically signed by: Richard Lopez II, D.O. Transthoracic Echo (TTE) Limited Result Date: 05/07/2021 Narrative: [place] [address] Limited Echocardiogram Report Patient Name: DEEPAK ALVARADO : 1960 StudyDate: 05/07/2021 12:16:52 PM Gender: M Tech: Location: [place] [address] Ref.Provider: RHINA GRANADOS Height(Cm): 175 BSA: 2.1 Weight(Kg): 91 Heart Rate: 82 BP: 127/44 Quality: Good Order Provider: Dr. Sutton Procedures: Echocardiographic Report: Limited transthoracic echocardiogram with 2D and M-Mode. Measurements: 2D/M Mode Measurement Value Normal Range LVIDd 2D 3.43 [ 4.20 -5.90 ] cm LVIDs 2D 2.59 [ 2.30 - 3.90 ] cm LVPWd 2D 1.01 [ 0.60 - 1.00 ] cm IVSd 2D 0.71 [ 0.60 - 0.90 ] cm Findings: Left Ventricle: Reduced left ventricular cavity size. Mild global left ventricular systolic dysfunction. Ejection fraction is measured at 42 %. These segments of the LV are hypokinetic: apical anterior segment. Pericardium: Trivial pericardial effusion. No echocardiographic evidence to suggest pericardial tamponade. Conclusions: Reduced left ventricular cavity size. Mild global left ventricular systolic dysfunction. Ejection fraction is measured at 42 %. These segments of the LV are hypokinetic: apical anterior segment. Trivial pericardial effusion. No echocardiographic evidence to suggest pericardial tamponade. Electronically Signed By: Gianni Francois MD, [facility] :54:09 STAFF FORESTER Transthoracic Echo Complete W Doppler/CF Result Date: 05/02/2021 Narrative: [place] [address] Echocardiogram Report Patient Name: DEEPAK ALVARADO W : 1960 Study Date: 05/02/2021 8:50:02 AM Gender: M Tech: Location: [place] [address] Ref Provider: NALINI CLAYTONHeight(Cm): 175 BSA: 2.11 Weight(Kg): 92 Heart Rate: 89 BP: 102/52 Quality: Good Order Provider: NALINI CLAYTON PROCEDURES: Echocardiographic Report: Transthoracic echocardiogram with complete 2D, M-Mode, and color Doppler examination. INDICATIONS: Free Text. Measurements: 2D/M Mode DopplerMeasurement Value Normal Range Measurement Value Normal Range EF Teich 2D 30.0 [ 55.0 - 70.0 ] percent CHRISTINA Vmax 2.04 [ 2.00 - 4.00 ] cm2 EF Mod 4C 42.2 [ 55.0 - 70.0 ] percent AV Mean PG 5 [ 2 - 4 ]mmHg LVIDd 2D 4.54 [ 4.20 - 5.90 ] cm AV Peak Ramesh 1.54 [ 1.00 - 1.70 ] m/s LVIDs 2D 3.91 [ 2.30 - 3.90 ] cm AV VTI 26.93 cm LVPWd 2D 0.92 [ 0.60 - 1.00 ] cm LVOT Diam 2.20 [ 1.70 - 2.10 ] cm IVSd 2D 0.76 [ 0.60 - 0.90 ] cm LVOT Peak Ramesh 0.83 [ 0.70 - 1.10 ] m/s LA Dimension MM 5.08 [ 3.00 - 4.00 ] cm LVOT VTI 13.82 [ 20.00 - 30.00 ] cm AoR Diam MM 4.12 [ 2.60 - 3.70 ] cm MV E Peak Ramesh 0.85 [ 0.60 - 1.30 ] m/s LA Volume Index 20.83 [ 16.00 - 28.00 ] cc/m2 MV A Peak Ramesh 1.14 [ 1.00 - 1.20 ] m/s ACS MM 1.91 [ 1.50 - 2.60 ] cm MV Mean PG 1 [ <= 5 ] mmHg MV PHT 43 [ 20 - 100 ] msec MVA 2.20MV Decel Time 137 [ 104 - 258 ] msec PV Peak Ramesh 1.10 [ 0.40 - 0.80 ] m/s TR Peak Ramesh 1.32 [ 1.00 - 2.80 ] m/s TR Peak PG 7 mmHg RVSP 16.93 [ 10.00 - 36.00 ] mmHg E' 0.06 E/E' 14.00 Measurement Value Normal Range Measurement Value Normal Range 2D/M Mode Doppler - FINDINGS: Atrial Septum: Normalatrial septum. Left Ventricle: Normal left ventricular size. Left ventricle not well visualized. The re is severe hypokinesis of the mid anteroseptal, anterior, and apical mancilla. Normal left ventricular wall thickness. Impaired diastolic relaxation Grade I. Ejection fraction is visually estimated at40 %. Left Atrium: The left atrium is normal in size. Right Ventricle: Normal right ventricular size. Normal right ventricular systolic function. Right Atrium: The right atrium is normal in size. Aortic Valve: Normal structure of the aortic valve. No evidence of hemodynamically significant aortic stenosis by Doppler. No aortic regurgitation. Mitral Valve: Normal structure of the mitral valve. Trivial regurgitation of the mitral valve. Pulmonic Valve: Pulmonic valve not well visualized. Trivial r egurgitation in the pulmonic valve. Tricuspid Valve: Normal structure of the tricuspid valve. Trivial regurgitation in the tricuspid valve. Pericardium: Normal pericardium with no significant pericardial effusion. Aorta: Normal aortic root. IVC: Normal size and normal respiratory collapse consistent with normal right atrial pressure (<5 mmHg). CONCLUSIONS: Technically difficult study with limited views. Normal left ventricular size. Left ventricle not well visualized. There is severe hypokinesis of the mid anteroseptal, anterior, and apical mancilla. Normal left ventricular wall thickness. Impaired diastolic relaxation Grade I. Ejection fraction is visually estimated at 40 %. Normal right ventricular size. Normal right ventricular systolic function. Normal structure of the mitral valve. Trivial regurgitation of the mitral valve. Normal structure of the tricuspid valve. Trivial regurgitation in the tricuspid valve. Electronically Signed By: Rylee Brito DO, FACJustyna, [place], [facility] 2021-05-02 14:07:25 STAFF FORESTER CC: CC: CC: ASSESSMENT/PLAN Hyponatremia from SIADH and possibly from zaroxylyn use. Work up for hyponatremia ongoing. PO FR. No normotonic fluids yet. Urine lytes and osm. If in clinical fluid overload, can use tolvaptan. Renal fn is better. Na better with loop diuresis, use PRN. Daily BMP. Na 132 and acceptable. Midodrine for hypotension. ?? Recent bladder tumor removal with hematuria. ?? -??Urology is following.H/H stable -Cysto vs conservative tx. -Voiding trial, hematuria has stopped. -Epistaxis Use nasal pillows. -CHF with decompensation Continue diuresis. RHC not done. Agree with Chandu. ?? Hypokalemia from diuresis. Replace PRN. ?? 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 COVID positive. Per protocol. On Remdisivir and Dex. ?? Syncopal episode -(+) orthostasis -receiving albumin -IV lasix was discontinued. ??There is a 1x order for zaroxolyn 10mg this am- recommend holding fornow. ??D/w RN ?? Coronary artery disease -s/p CABG post STEMI -??underwent four-vessel bypass ??MAE to the LAD, sequential saphenous vein graft to diagonal and obtuse marginal and a vein graft to the PDA. -s/p??low dose dobutamine -paced rhythm ?? Moderate LV dysfunction -s/p IV??lasix??and??low dose??dobutamine -Beta blockers, ??[place] once off dobutamine-would hold off adding given syncopal episode this am -repeat ECHO 05/07 EF 42% (see above) ?Nonsustained ventricular tachycardia -no recurrence of VT -K 3.7, Mg??2.0. ??Supplement to keep K >/= 4.0, Mg >/= 2.0 ?Diabetes mellitus -?on lantus and SSI ?? COPD: ?? -on?O2 NC??4L (dried blood to L nare humidified o2 ordered) ?? Dyslipidemia -?Continue atorvastatin. ?PAD -?Stable ? Anemia -Hb??11.4 (10.5)??(8.6) -monitor ?? I can be reached at [phone] with any concerns. Thank you Rhina Granados MD for the consult. Yves Weinberg MD [employer] [phone] F FORESTER * Nalini Clayton MD - 05/25/2021 9:44 AM CST [facility] - Cardiology [facility] Progress Note Admit Date: 05/01/2021 5:20 PM @HDAYS@ PCP: Unknown, Notinfile Patient seen and examined Chart , telemtry reviewed Symptoms Patient denies chest pain, palpitations, sweating or syncope.Increasing dyspnea Data Vitals: 05/25/21 0345 05/25/21 0400 05/25/21 0415 05/25/21 0806 BP: 112/78 BP Location: Left arm Patient Position: HOB 30 degrees Pulse: 79 73 73 Resp: 25 22 23 Temp: 36.1 ??C (96.9 ??F) TempSrc: Oral SpO2: 93% Weight: Height: Intake/Output Summary (Last 24 hours) at 05/25/2021 0944 Last data filed at 05/25/2021 0600 Gross per 24 hour Intake 657 ml Output 1800 ml Net -1143 ml Lab Results Component Value Date WBC 11.2 (H) 05/25/2021 WBC 10.7 (H) 05/24/2021 WBC 10.0 (H) 05/23/2021 HGB 10.0 (L) 05/25/2021 HGB 9.6 (L) 05/24/2021 HGB 9.0 (L) 05/23/2021 HCT 31.6 (L) 05/25/2021 HCT 29.5 (L) 05/24/2021 HCT 27.8 (L) 05/23/2021 Lab Results Component Value Date SODIUM 132 (L) 05/25/2021 SODIUM 133 (L) 05/24/2021 SODIUM 132 (L) 05/23/2021 POTASSIUM 4.2 05/25/2021 POTASSIUM 4.3 05/24/2021 POTASSIUM 3.5 05/23/2021 CHLORIDE 96 (L) 05/25/2021 CHLORIDE 96 (L) 05/24/2021 CHLORIDE 95 (L) 05/23/2021 CO2 23 05/25/2021 CO2 24 05/24/2021 CO2 23 05/23/2021 CREATININE 0.58 (L) 05/25/2021 CREATININE 0.60 (L) 05/24/2021 CREATININE 0.48 (L) 05/23/2021 GLUCOSE 97 05/25/2021 GLUCOSE 222 (H) 05/25/2021 GLUCOSE 135 05/24/2021 GLUCOSE 179 05/24/2021 GLUCOSE 142 05/24/2021 GLUCOSE 141 05/23/2021 CALCIUM 9.0 05/25/2021 CALCIUM 8.8 05/24/2021 CALCIUM 8.4 (L) 05/23/2021 No results found for: PTT No results found for: PT No results found for: INR No results found for: BNP No components found for: TROPONIN Lab Results Component Value Date CHOL 131 05/24/2021 TRIG 133 05/24/2021 HDL 31 (L) 05/24/2021 LDLCALC 73 05/24/2021 No results found for: ALBUMIN, ALKPHOS, ALT, AST No components found for: MAGMGDL No results found for: TSH No results found for: T3FREE No results found for: [id number] Pain Assessment: No/denies pain Meds MEDICATIONS FOR CURRENT ENCOUNTER: SCHEDULED MEDICATIONS: Scheduled Medications Medication Dose Route Frequency ??? albuterol HFA (PROVENTIL HFA,VENTOLIN HFA,PROAIR HFA) 90 mcg/actuation inhaler 8 puff 8 puff inhalation Q4H While awake (RT) ??? aspirin enteric coated tablet 81 mg 81 mg oral Daily ??? atorvastatin (LIPITOR) tablet 80 mg 80 mg oral Nightly ??? dapagliflozin (FARXIGA) tablet 10 mg 10 mg oral Daily ??? dexAMETHasone (DECADRON) 4 mg/mL injection 6 mg 6 mg intravenous Daily ??? docusate sodium (COLACE) capsule 100 mg 100 mg oral BID ??? enoxaparin (LOVENOX) syringe 40 mg 40 mg subcutaneous Daily-2100 ??? insulin lispro (HumaLOG, ADMELOG) 100 unit/mL injection 0-10 Units 0-10 Units subcutaneous TID with meals ??? insulin lispro (HumaLOG, ADMELOG) 100 unit/mL injection 0-5 Units 0-5 Units subcutaneous Nightly ??? insulin lispro (HumaLOG, ADMELOG) 100 unit/mL injection 7 Units 0.083 Units/kg subcutaneous TIDwith meals ??? insulin NPH (HumuLIN N, NovoLIN N) 100 unit/mL injection 10 Units 10 Units subcutaneous Q6H LEAH ??? ivabradine (CORLANOR) tablet 5 mg 5 mg oral BID with meals (bkfst, dinner) ??? lidocaine (LIDODERM) 5 % patch 1 patch 1 patch transdermal Daily ??? magnesium sulfate 4 g/100 mL in water (premix) 4 g 4 g intravenous Once ??? midodrine (PROAMATINE) tablet 15 mg 15 mg oral TID ??? pantoprazole DR (PROTONIX) extended release tablet 40 mg 40 mg oral Daily ??? QUEtiapine (SEROquel) tablet 50 mg 50 mg oral Nightly ??? sodium chloride 0.9% flush 0.5-20 mL 0.5-20 mL intra-catheter Q8H LEAH ??? spironolactone (ALDACTONE) tablet 25 mg 25 mg oral Daily ??? tamsulosin (FLOMAX) extended release capsule 0.4 mg 0.4 mg oral Daily with dinner ?? CONTINUOUS MEDICATIONS: Continuous Medications Medication Dose Last Rate ? PRN MEDICATIONS: PRN Medications Medication Dose Route Frequency Last Admin ??? acetaminophen (TYLENOL) tablet 650 mg 650 mg oral Q6H PRN 650 mg at 05/21/21 1545 ? ? al & mag hydroxide exunvjldgdc-heakzdmefnzvuyq-bfhrgnyip-nystatin (MAGIC MOUTHWASH) suspension 1-1-1-1 20 mL swish & spit Q4H PRN ??? albuterol 2.5 mg /3 mL (0.083 %) nebulizer solution 2.5 mg 2.5 mg nebulization Q4H PRN (RT) 2.5mg at 05/17/21 0224 ??? dextrose oral liquid liquid 15 g 15 g oral Q15 Min PRN Or ??? dextrose (D10W) 10% bolus 250 mL 250 mL intravenous Q15 Min PRN ??? dextrose oral liquid liquid 15 g 15 g oral Q15 Min PRN ??? glucagon injection 1 mg 1 mg intramuscular Q30 Min PRN ??? glucagon injection 1 mg 1 mg intramuscular Q30 Min PRN ??? guaiFENesin (ROBITUSSIN) 20 mg/mL oral liquid 200 mg 200 mg oral QID PRN 200 mg at 05/21/21 0810 ??? ondansetron (ZOFRAN) injection 4 mg 4 mg intravenous Q6H PRN ??? polyethylene glycol (MIRALAX) packet 17 g 17 g oral Daily PRN Allergies Allergen Reactions ??? Metoclopramide Review of Systems: All systems were reviewed. Pertinent positives are mentioned above. Exam Not done Assessment /Plan CAD + STEMI s/p CABG - Cardiac cath 05/01 with 40% distal LM, 100% prox LAD, 90% prox Cx, 50% prox and distal RCA - Echo 05/02 EF??37%, CABGx4 05/04/2021 - SR 80s on tele -Pro 3 -CTS following ? COVID 19 - dx 05/19/2021 - on Remdesivir and dexamethasone -on optiflow -pulmonology following ?? Acute Respiratory failure - Lung infiltrates per CXR on 05/19, completed Abx, COVID + - transferred to ICU 05/17 for increasing oxygen requirments - on Optiflow - Pulm following ??Getting CT for PE as increased O2 requirements Hematuria - cysto 05/14 - resolved ?? Urinary retention -urology following ?? S/p Cardiogenic shock + Hypotension - off pressors -midodrine TID -BP improving ?? Hypokalemia - on K supplement - improved ?? Hx V. Fib - brief on 05/03 - treated w/ Amiodarone and Dobutamine gtt, resolved - SR 80s on tele -4 beat episode of NSVT 05/23 ?? HLD - on Statin ?? Nalini Clayton MD F FORESTER * Varsha Lee NP - 05/25/2021 9:40 AM CST Cardiothoracic Surgery Progress Note Deepak Alvarado 1960 Hospital DAY#24 21 days postop Urgent Coronary Artery Bypass Graft x4 Subjective: Resting in bed. Recently placed on Bi-pap for tachynpnea . Patient denies worsening SOB for me and denies anxiety. OBJECTIVE: Vitals: Temp: [35.8 ??C (96.5 ??F)-36.9 ??C (98.4 ??F)] 36.1 ??C (96.9 ??F) Pulse: [73-95] 73 BP: (91-136)/(56-87) 112/78 Resp: [15-39] 23 SpO2: [93 %-98 %] 93 % FiO2 (%): [50 %-60 %] 50 % Wt Readings from Last 3 Encounters: 05/23/21 79.5 kg (175 lb 4.3 oz) 08/27/13 114.3 kg (252 lb) 10/19/12 111.6 kg (246 lb) I/O last 2 completed shifts: In: 657 [P.O.:657] Out: 1800 [Urine:1800] Physical Exam Vitals and nursing note reviewed. Constitutional: General: He is not in acute distress. Appearance: Normal appearance. HENT: Head: Normocephalic and atraumatic. Nose: Nose normal. Mouth/Throat: Pharynx: Oropharynx is clear. Eyes: Conjunctiva/sclera: Conjunctivae normal. Cardiovascular: Rate and Rhythm: Normal rate and regular rhythm. Heart sounds: No murmur heard. Comments: NSR 97 Pulmonary: Effort: Pulmonary effort is normal. Tachypnea present. No accessory muscle usage. Breath sounds: Decreased breath sounds present. Abdominal: Palpations: Abdomen is soft. Musculoskeletal: Cervical back: Neck supple. Right lower leg: No edema. Left lower leg: No edema. Skin: General: Skin is warm and dry. Comments: Sternal incision is well healed and approximated Sternum is stable to cough Rt SVG site HOME CARE PROVIDER with steri-strips C/D/I Neurological: General: No focal deficit present. Mental Status: He is alert and oriented to person, place, and time. Psychiatric: Mood and Affect: Mood normal. Access: picc Recent Labs Lab Units 05/25/21 0300 05/24/21 0348 05/23/21 0318 WBC K/cumm 11.2* 10.7* 10.0* HEMOGLOBIN g/dL 10.0* 9.6* 9.0* HEMATOCRIT % 31.6* 29.5* 27.8* PLATELETS K/cumm 459* 457* 408* Recent Labs Lab Units 05/25/21 0300 05/24/21 0348 05/23/21 0318 SODIUM mmol/L 132* 133* 132* POTASSIUM PLASMA mmol/L 4.2 4.3 3.5 CHLORIDE mmol/L 96* 96* 95* CO2 mmol/L 23 24 23 BUN SERUM mg/dL 24 23 21 CREATININE mg/dL 0.58* 0.60* 0.48* CALCIUM mg/dL 9.0 8.8 8.4* Recent Labs Lab Units 05/25/21 0951 05/18/211952 PH ART 7.47* 7.45 PCO2 ART mmHg 32* 32* PO2 ART mmHg 72* 58* BASE EXC ART mmol/L 0 -2 Drips: None Imaging: Today's CXR: Continued patchy infiltrates. Poorly penetrated Assessment and Plan: 60 y.o. male 21 Days Post-Op s/p urgent Coronary Artery Bypass Graft x4 by Dr. Granados CVS: No acute issues over night. Blood gas this morning 7.47/32/72 Pulm: Started on bi-pap this morning. Pulmonology following. CoVID (+) 05/19/2021--started on Remdesivir and IV steroids. CCP planning to start baricitinib. GI: Bowel Regimen. Regular diet +supplements. Renal: BUN/Scr 24/0.62 ID: ID following. Continue remdesivir and IV steroids. D/L/T: PICC Prophylaxis: Protonix and Lovenox Dispo: ICU Varsha Lee NP Cardiothoracic Surgery [place] C: [phone] [facility] [employer] Cosigned by Rhina Granados MD at 05/25/2021 3:02 PM STAFF FORESTER F FORESTER F FORESTER * Yves Weinberg MD - 05/24/2021 2:04 PM CST Nephrology Progress Note [facility] SUBJECTIVE 05/24/21 Pt seen/examined. All labs and data reviewed. Getting IV lasix PRN. Na 133, lytes and renal fn stable. 05/23/21 Pt seen/examined. All labs reviewed. Receiving K phos. BP soft, on hi dose midodrine. Na 132. I gave lasix 40 iv times 1 for falling UO. Remains in ICU. 05/22/21 Pt seen/examined. All labs and data reviewed. Na 134, Cr 0.62. Dyspnea better. Eager to go home but remains in ICU. Stable renal fn and lytes. OK for loop diuretics PRN. Avoid thiazides. 05/21/21 Pt seen/examined. All labs reviewed. Off lasix drip. Still dyspneic. Renal fn better. Na 135. 05/20/21 Pt seen/examined. All labs and data reviewed. COVID pos. On Dex and remdisivir. On lasix drip. Na 130, Cr 1.44. 05/19 Cr 1.41 Na 130. Started on Corlanor. Appears stable. BP remains very soft. UO not accurate. 05/17 Transferred to ICU for hi O2 requirements. Has left nostril epistaxis. On low dose pressors and lasix and insulin drip. Na 128, should improve with loop diuresis. Cr 1.2. 05/16 Creatinine stable and sodium trending up.On IV lasix,lytes wnl.Osorio out,having some problems with retention- nurses in contact with urology,doing bladder scans. 05/15/21 Doing fair. Osorio out. Has not voided yet. Na 131 with loop diuresis and improved. All labs and data reviewed. Excellent UO. Doing fair. Some flank pain and mild dyspnea. Na 127 and a little lower. BP better. Agreeable to cysto, but urology planning on conservative tx. Will start loop diuresis. OBJECTIVE Vitals: Vitals: 05/24/21 0415 05/24/21 0430 05/24/21 0802 05/24/21 1349 BP: 105/68 115/69 BP Location: Patient Position: Pulse: 72 71 Resp: 23 25 Temp: TempSrc: SpO2: 95% 98% Weight: Height: Intake/Output Summary (Last 24 hours) at 05/24/2021 1404 Last data filed at 05/24/2021 0955 Gross per 24 hour Intake 1769 ml Output 2535 ml Net -766 ml REVIEW OF SYSTEMS Review of Systems Epistaxis, dyspnea. Constitutional: Negative. HENT: Negative. Eyes: Negative. Respiratory: Negative. Cardiovascular: Negative. Gastrointestinal: Negative. Genitourinary: Negative. Musculoskeletal: Negative. Skin: Negative. Allergic/Immunologic: Negative. Hematological: Negative. All other systems reviewed and are negative. PHYSICAL EXAM Physical Exam Constitutional: Appears well-developed. O2 on HENT: wnl Head: Normocephalic. Eyes: Pupils are equal, round, and reactive to light. Neck: Normal range of motion. Neck supple. Cardiovascular: Normal rate. Pulmonary/Chest: Effort normal and breath sounds normal. Abdominal: Soft. NT,active BS Musculoskeletal: Normal range of motion. Neurological: Alert, oriented. Skin: Skin is warm. Nursing note and vitals reviewed. MEDICATIONS Current Facility-Administered Medications: ??? acetaminophen (TYLENOL) tablet 650 mg, 650 mg, oral, Q6H PRN, Eleonora Duarte, EFREN, 650 mg at 05/21/21 1545 ? ? al & mag hydroxide kyvpopgckmu-oncadwvxfqmczcw-vlkdfoxgw-nystatin (MAGIC MOUTHWASH) suspension 1-1-1-1, 20 mL, swish & spit, Q4H PRN, Elena Kelly NP ??? albuterol 2.5 mg /3 mL (0.083 %) nebulizer solution 2.5 mg, 2.5 mg, nebulization, Q4H PRN (RT),Ralf Tomlinson MD, 2.5 mg at 05/17/21 0224 ??? albuterol HFA (PROVENTIL HFA,VENTOLIN HFA,PROAIR HFA) 90 mcg/actuation inhaler 8 puff, 8 puff, inhalation, Q4H While awake (RT), Ralf Tomlinson MD, 8 puff at 05/24/21 1327 ??? aspirin enteric coated tablet 81 mg, 81 mg, oral, Daily, Varsha Crowder NP, 81 mg at 05/24/21 0846 ??? atorvastatin (LIPITOR) tablet 80 mg, 80 mg, oral, Nightly, Rhina Granados MD, 80 mg at 05/23/212057 ??? dapagliflozin (FARXIGA) tablet 10 mg, 10 mg, oral, Daily, Stephen Melgar MD, 10 mg at ??? dexAMETHasone (DECADRON) 4 mg/mL injection 6 mg, 6 mg, intravenous, Daily, Silviano Huddleston,EFREN, 6 mg at 05/24/21 0846 ??? dextrose oral liquid liquid 15 g, 15 g, oral, Q15 Min PRN OR dextrose (D10W) 10% bolus 250 mL, 250 mL, intravenous, Q15 Min PRN, Silviano Huddleston NP ??? dextrose oral liquid liquid 15 g, 15 g, oral, Q15 Min PRN OR [DISCONTINUED] dextrose (D10W)10% bolus 250 mL, 250 mL, intravenous, Q15 Min PRN, Anibal Lara MD ??? docusate sodium (COLACE) capsule 100 mg, 100 mg, oral, BID, 100 mg at 05/24/21 0846 OR [DISCONTINUED] docusate (COLACE) 10 mg/mL oral liquid 100 mg, 100 mg, feeding tube, BID, Rhina Granados MD, 100 mg at 05/05/21 0842 ??? enoxaparin (LOVENOX) syringe 40 mg, 40 mg, subcutaneous, Daily-2100, Rhina Granados MD, 40 mg at 05/23/212057 ??? glucagon injection 1 mg, 1 mg, intramuscular, Q30 Min PRN, Anibal Lara MD ??? glucagon injection 1 mg, 1 mg, intramuscular, Q30 Min PRN, Silviano Huddleston NP ??? guaiFENesin (ROBITUSSIN) 20 mg/mL oral liquid 200 mg, 200 mg, oral, QID PRN, Caleb Toth PA, 200 mg at 05/21/21 0810 ??? insulin lispro (HumaLOG, ADMELOG) 100 unit/mL injection 0-10 Units, 0-10 Units, subcutaneous, TID with meals, Silviano Huddleston NP, 2 Units at 05/24/21 1242 ??? insulin lispro (HumaLOG, ADMELOG) 100 unit/mL injection 0-5 Units, 0-5 Units, subcutaneous, Nightly, Silviano Huddleston NP, 1 Units at 05/23/212130 ??? insulin lispro (HumaLOG, ADMELOG) 100 unit/mL injection 7 Units, 0.083 Units/kg, subcutaneous, TID with meals, Silviano Huddleston NP, 7 Units at 05/24/21 1241 ??? insulin NPH (HumuLIN N, NovoLIN N) 100 unit/mL injection 8 Units, 8 Units, subcutaneous, Q6H LEAH, Silviano Huddleston NP, 8 Units at 05/24/21 1239 ??? ivabradine (CORLANOR) tablet 5 mg, 5 mg, oral, BID with meals (bkfst, dinner), Stephen Melgar MD, 5 mg at 05/24/21 0846 ??? midodrine (PROAMATINE) tablet 15 mg, 15 mg, oral, TID, Silviano Huddleston NP, 15 mg at 05/24/21 0846 ??? ondansetron (ZOFRAN) injection 4 mg, 4 mg, intravenous, Q6H PRN, Rhina Granados MD ??? pantoprazole DR (PROTONIX) extended release tablet 40 mg, 40 mg, oral, Daily, Rhina Granados MD, 40 mg at 05/24/21 0846 ??? polyethylene glycol (MIRALAX) packet 17 g, 17 g, oral, Daily PRN, Rhina Granados MD ??? QUEtiapine (SEROquel) tablet 50 mg, 50 mg, oral, Nightly, Silviano Huddleston NP, 50 mg at 05/23/21 2058 ??? sodium chloride 0.9% flush 0.5-20 mL, 0.5-20 mL, intra-catheter, Q8H LEAH, Rhina Granados MD, 10 mL at 05/24/21 1242 ??? sodium phosphate - potassium phosphate (K-PHOS NEUTRAL) tablet 250 mg, 250 mg, oral, TID with meals, Silviano Huddleston NP, 250 mg at 05/24/21 1239 ??? spironolactone (ALDACTONE) tablet 25 mg, 25 mg, oral, Daily, Stephen Melgar MD, 25 mg at 05/24/21 0846 ??? tamsulosin (FLOMAX) extended release capsule 0.4 mg, 0.4 mg, oral, Daily with dinner, Elena Kelly NP, 0.4 mg at 05/23/21 1806 Lab/Radiology/Diagnostic Review: Recent Results (from the past 24 hour(s)) POCT glucose Collection Time: 05/23/21 2:43 PM Result Value Ref Range Glucose, POC 276 (H) 70 - 199 mg/dL POCT glucose Collection Time: 05/23/21 6:14 PM Result Value Ref Range Glucose, POC 226 (H) 70 - 199 mg/dL POCT glucose Collection Time: 05/23/21 9:11 PM Result Value Ref Range Glucose, POC 162 70 - 199 mg/dL POCT glucose Collection Time: 05/23/21 11:21 PM Result Value Ref Range Glucose, POC 179 70 - 199 mg/dL Albumin Creatinine Ratio, Urine Collection Time: 05/24/21 3:48 AM Result Value Ref Range Albumin Ur <12.0 mg/L Creatinine Ur 55.2 mg/dL Albumin Creatinine Ratio, Ur <22 1 - 29 mg/g Phosphorus Collection Time: 05/24/21 3:48 AM Result Value Ref Range Phosphorus, pl 3.3 2.3 - 4.5 mg/dL Magnesium Collection Time: 05/24/21 3:48 AM Result Value Ref Range Magnesium 2.1 1.4 - 2.5 mg/dL CBC without differential Collection Time: 05/24/21 3:48 AM Result Value Ref Range WBC 10.7 (H) 3.8 - 9.9 K/cumm Hgb 9.6 (L) 13.0 - 17.5 g/dL Hct 29.5 (L) 38.9 - 50.3 % Plt 457 (H) 150 - 400 K/cumm MPV 11.6 9.1 - 12.3 fL RBC 3.24 (L) 4.30 - 5.80 M/cumm MCV 91.0 81.3 - 96.4 fL MCH 29.6 27.1 - 33.3 pg MCHC 32.5 32.3 - 35.7 g/dL RDW CV 13.2 11.1 - 14.9 % RDW SD 43.6 35.7 - 48.1 fL NRBC abs 0.00 0.00 - 0.01 K/cumm Basic metabolic panel Collection Time: 05/24/21 3:48 AM Result Value Ref Range Sodium 133 (L) 135 - 145 mmol/L Potassium, pl 4.3 3.3 - 4.9 mmol/L Chloride 96 (L) 97 - 110 mmol/L CO2 24 22 - 32 mmol/L Anion gap 13 2 - 15 mmol/L BUN 23 8 - 25 mg/dL Creatinine 0.60 (L) 0.80 - 1.30 mg/dL Glucose 142 70 - 199 mg/dL Calcium 8.8 8.5 - 10.3 mg/dL Vitamin D 25 hydroxy Collection Time: 05/24/21 3:48 AM Result Value Ref Range Vitamin D, 25-hydroxy 10 (L) 30 - 80 ng/mL Lipid panel Collection Time: 05/24/21 3:48 AM Result Value Ref Range Cholesterol 131 30 - 199 mg/dL Triglycerides 133 <=149 mg/dL HDL 31 (L) >=40 mg/dL LDL, calculated 73 <=129 mg/dL Non-HDL Cholesterol 100 mg/dL Chol/HDL ratio 4 Ferritin Collection Time: 05/24/21 3:48 AM Result Value Ref Range Ferritin 1,861 (H) 30 - 400 ng/mL Folate Collection Time: 05/24/21 3:48 AM Result Value Ref Range Folic acid 10.2 >=5.0 ng/mL Hepatitis panel, acute Collection Time: 05/24/21 3:48 AM Result Value Ref Range Hep A IgM Nonreactive Nonreactive Hep B core IgM Nonreactive Nonreactive Hep C Ab Nonreactive Nonreactive HepBsAg Nonreactive Nonreactive Iron profile w/ IBC Collection Time: 05/24/21 3:48 AM Result Value Ref Range Iron 26 (L) 50 - 150 mcg/dl TIBC 174 (L) 250 - 400 mcg/dL Transferrin saturation 15 (L) 20 - 50 % Vitamin B12 Collection Time: 05/24/21 3:48 AM Result Value Ref Range Vitamin B12 879 230 - 1,250 pg/mL eGFR Collection Time: 05/24/21 3:48 AM Result Value Ref Range eGFR 110 mL/min/1.73 m2 POCT glucose Collection Time: 05/24/21 6:46 AM Result Value Ref Range Glucose, POC 119 70 - 199 mg/dL POCT glucose Collection Time: 05/24/21 8:51 AM Result Value Ref Range Glucose, POC 109 70 - 199 mg/dL POCT glucose Collection Time: 05/24/21 12:18 PM Result Value Ref Range Glucose, POC 157 70 - 199 mg/dL XR Chest 1 View - Portable - in AM Result Date: 05/11/2021 Narrative: EXAMINATION: XR CHEST 1 VIEW HISTORY: The patient is a 60-year-old male who has had cardiac surgery. Comparison made with the previous study dated 05/10/2021. TECHNIQUE: AP portable view of the chest. FINDINGS: Lungs clear. Heart not enlarged. Aortic atherosclerosis. No failure. The right IJ [place] catheter has been retracted with its tip in the distal superior vena cava. Impression: IMPRESSION: No failure. Electronically signed by: Elvira Blackman M.D. XR Chest 1 View - Portable - in AM Result Date: 05/10/2021 Narrative: EXAMINATION: XR CHEST 1 VIEW DATE: 05/10/2021 2:40 AM COMPARISON: 05/09/2021 HISTORY: 60-year-old man cardiac surgery follow-up FINDINGS:Compared with study the previous day, significant improvement. There is cardiomegaly with postsurgical changes with continued and decreasing failure. Bibasilar atelectasis with left pleural fluid decreasing. No pneumothorax. [place] catheter remainsin place Impression: Decreasing failure, atelectasis and left effusion. Electronically signed by: Deandre Lomeli M.D. XR Chest 1 View - Portable - in AM Result Date: 05/09/2021 Narrative: EXAMINATION: XR CHEST 1 VIEW DATE: 05/09/2021 4:10 AM HISTORY: 60-year-old man cardiac surgery follow-up FINDINGS:Compared with study the previous day, significant improvement. There is cardiomegaly with postsurgical changes with continued but decreasing failure. Bibasilar atelectasis with left pleural fluid decreasing. No pneumothorax. [place] catheter remains in place Impression: Decreasing failure, atelectasis and left effusion. Electronically signed by: Deandre Lomeli M.D. XR Chest 1 View - Portable - in AM Result Date: 05/08/2021 Narrative: EXAMINATION: XR CHEST 1 VIEW DATE: 05/08/2021 4:15 AM HISTORY: 60-year-old man cardiac surgery follow-up FINDINGS:Compared with study the previous day, significant improvement. There is cardiomegaly with postsurgical changes with continued but decreasing failure. Bibasilar atelectasis with left pleural fluid. No pneumothorax. [place] catheter remains in place Impression: Decreasing failure. No pneumothorax. Electronically signed by: Deacon Cummings M.D. XR Chest 1 View - Portable - in AM Result Date: 05/07/2021 Narrative: EXAMINATION: XR CHEST 1 VIEW DATE: 05/07/2021 3:55 AM HISTORY: 60-year-old man follow-upcardiac surgery FINDINGS:Compared with study of the previous day, postsurgical changes in the heartand mediastinum with cardiomegaly are stable. [place] catheter remains in place. Left thoracostomy tube remains in place. No pneumothorax. Pulmonary vascular congestion with interstitial lung disease remain prominent. Impression: Persistent prominent interstitial lung disease with failure. Electronically signed by: Deacon Cummings M.D. XR Chest 1 View - Portable - in AM Result Date: 05/06/2021 Narrative: EXAMINATION: XR CHEST 1 VIEW DATE: 05/06/2021 4:05 AM INDICATION: Cardiac surgery. COMPARISON: 05/05/2021. FINDINGS: No pneumothorax or pleural effusion. Similar-appearing pulmonary vascular congestion and interstitial opacities most notable in the bilateral upper lobes consistent with pulmonary edema. Pulmonary catheter catheter, left thoracostomy tube, and mediastinal drain are appropriately position. Intra-aortic balloon pump is appropriately positioned. Interval removal of endotracheal tube. Impression: 1. Interval removal of endotracheal tube. Remaining tubes and lines are appropriately positioned. 2. Similar-appearing cardiomegaly, pulmonary vascular congestion, and prominent bilateralinterstitial markings suggestive of interstitial pulmonary edema. Electronically signed by: Richard Zhao II, D.O. XR Chest 1 View - Portable - in AM Result Date: 05/05/2021 Narrative: EXAMINATION: XR CHEST 1 VIEW DATE: 05/05/2021 4:15 AM HISTORY: 60-year-old man cardiac surgery follow-up FINDINGS:Compared with the study of the prior day, tubes and catheters remain satisfactorily positioned. Worsening pulmonary vascular congestive changes are seen. Cardiomegaly with postsurgical changes stable. No pneumothorax. Impression: Increasing failure. Electronically signed by: Deacon Cummings M.D. XR Chest 1 Vw Portable Result Date: 05/05/2021 Narrative: EXAMINATION: XR CHEST 1 VIEW DATE: 05/04/2021 8:40 PM HISTORY: 60-year-old man coronary artery bypass follow-up FINDINGS:Compared with the study of earlier the same day, postsurgical changes now evident within the heart and mediastinum with cardiomegaly. Interval placement of endotracheal tube, nasogastric tube, [place] catheter, left thoracostomy tube and mediastinal drain all in satisfactory position. No pneumothorax. Interstitial lung disease with mild pulmonary vascular congestive changes. Aortic balloon pump is no longer seen. Impression: Tube placements with postsurgical changes with cardiomegaly with interstitial lung disease and mild failure with no pneumothorax. Electronically signed by: Deacon Cummings M.D. XR Chest 1 Vw Portable Result Date: 05/04/2021 Narrative: EXAMINATION: XR CHEST 1 VIEW DATE: 05/04/2021 9:05 AM HISTORY: Coronary artery disease FINDINGS:Comparison is made with study of 2 days earlier. Cardiomegaly, COPD with interstitial lung disease stable. Mild failure. Aortic balloon pump stable in position at the proximal descending aorta. No pneumothorax. No new infiltrates. Impression: Stable appearance. COPD cardiomegaly, with mild failure suspected. Electronically signed by: Deacon Cummings M.D. XR Chest 1 Vw Portable Result Date: 05/02/2021 Narrative: EXAMINATION: XR CHEST 1 VIEW DATE: 05/02/2021 5:15 AM INDICATION: Intra-aortic balloon pump. COMPARISON: 05/01/2021. FINDINGS: Appropriately positioned intra-aortic balloon pump appears unchanged. No pneumothorax or pleural effusion. Mixed reticular and alveolar opacities demonstrated inall lung lobes appear most significant in the upper lobes and perihilar regions, unchanged. Impression: 1. Appropriately positioned intra-aortic balloon pump. 2. Similar mixed reticular and alveolar opacities most notable in the bilateral upper lobes and perihilar region. Electronically signed by: Richard Lopez II, D.O. XR Chest 1 Vw Portable Result Date: 05/02/2021 Narrative: EXAMINATION: XR CHEST 1 VIEW DATE: 05/01/2021 8:15 PM INDICATION: Hypoxia. COMPARISON: None. FINDINGS: No pneumothorax. No pleural effusion. Mixed reticular and alveolar opacities are demonstrated in all lung lobes but demonstrate an upper lobe and perihilar predominance. Findings may represent pulmonary edema on background of centrilobular emphysematous changes. Underlying infectious process not entirely excludable. Cardiac mediastinal silhouette is stable in appearance. No acute osseous abnormality. Impression: Mixed reticular and alveolar opacities are demonstrated in all lung lobes but demonstrate an upper lobe and perihilar predominance. Findings may represent pulmonary edema on background ofcentrilobular emphysematous changes. Electronically signed by: Richard Lopez II, D.O. Transthoracic Echo (TTE) Limited Result Date: 05/07/2021 Narrative: [place] [address] Limited Echocardiogram Report Patient Name: DEEPAK ALVARADO : 1960 StudyDate: 05/07/2021 12:16:52 PM Gender: M Tech: Location: [place] [address] Ref.Provider: RHINA GRANADOS Height(Cm): 175 BSA: 2.1 Weight(Kg): 91 Heart Rate: 82 BP: 127/44 Quality: Good Order Provider: Dr. Sutton Procedures: Echocardiographic Report: Limited transthoracic echocardiogram with 2D and M-Mode. Measurements: 2D/M Mode Measurement Value Normal Range LVIDd 2D 3.43 [ 4.20 -5.90 ] cm LVIDs 2D 2.59 [ 2.30 - 3.90 ] cm LVPWd 2D 1.01 [ 0.60 - 1.00 ] cm IVSd 2D 0.71 [ 0.60 - 0.90 ] cm Findings: Left Ventricle: Reduced left ventricular cavity size. Mild global left ventricular systolic dysfunction. Ejection fraction is measured at 42 %. These segments of the LV are hypokinetic: apical anterior segment. Pericardium: Trivial pericardial effusion. No echocardiographic evidence to suggest pericardial tamponade. Conclusions: Reduced left ventricular cavity size. Mild globalleft ventricular systolic dysfunction. Ejection fraction is measured at 42 %. These segments of theLV are hypokinetic: apical anterior segment. Trivial pericardial effusion. No echocardiographic evidence to suggest pericardial tamponade. Electronically Signed By: Gianni Francois MD, [facility] 2021-05-07 12:54:09 STAFF FORESTER Transthoracic Echo Complete W Doppler/CF Result Date: 05/02/2021 Narrative: [place] [address] Echocardiogram Report Patient Name: DEEPAK ALVARADO W : 1960 Study Date: 05/02/2021 8:50:02 AM Gender: M Tech: Location: [place] [address] Ref Provider: NALINI CLAYTONHeight(Cm): 175 BSA: 2.11 Weight(Kg): 92 Heart Rate: 89 BP: 102/52 Quality: Good Order Provider: NALINI CLAYTON PROCEDURES: Echocardiographic Report: Transthoracic echocardiogram with complete 2D, M-Mode, and color Doppler examination. INDICATIONS: Free Text. Measurements: 2D/M Mode Doppler Measurement Value Normal Range Measurement Value Normal Range EF Teich 2D 30.0 [ 55.0 - 70.0 ] percent CHRISTINA Vmax 2.04 [ 2.00 - 4.00 ] cm2 EF Mod 4C 42.2 [ 55.0 - 70.0 ] percent AV Mean PG 5 [ 2 - 4 ]mmHg LVIDd 2D 4.54 [ 4.20 - 5.90 ] cm AV Peak Ramesh 1.54 [ 1.00 - 1.70 ] m/s LVIDs 2D 3.91 [ 2.30 - 3.90 ] cm AV VTI 26.93 cm LVPWd 2D 0.92 [ 0.60 - 1.00 ] cm LVOT Diam 2.20 [ 1.70 - 2.10 ] cm IVSd 2D0.76 [ 0.60 - 0.90 ] cm LVOT Peak Ramesh 0.83 [ 0.70 - 1.10 ] m/s LA Dimension MM 5.08 [ 3.00 - 4.00 ]cm LVOT VTI 13.82 [ 20.00 - 30.00 ] cm AoR Diam MM 4.12 [ 2.60 - 3.70 ] cm MV E Peak Ramesh 0.85 [ 0.60 - 1.30 ] m/s LA Volume Index 20.83 [ 16.00 - 28.00 ] cc/m2 MV A Peak Ramesh 1.14 [ 1.00 - 1.20 ] m/sACS MM 1.91 [ 1.50 - 2.60 ] cm MV Mean PG 1 [ <= 5 ] mmHg MV PHT 43 [ 20 - 100 ] msec MVA 2.20MV Decel Time 137 [ 104 - 258 ] msec PV Peak Ramesh 1.10 [ 0.40 - 0.80 ] m/s TR Peak Ramesh 1.32 [ 1.00 - 2.80 ] m/s TR Peak PG 7 mmHg RVSP 16.93 [ 10.00 - 36.00 ] mmHg E' 0.06 E/E' 14.00 Measurement Value Normal Range Measurement Value Normal Range 2D/M Mode Doppler - FINDINGS: Atrial Septum: Normal atrial septum. Left Ventricle: Normal left ventricular size. Left ventricle not well visualized. Thereis severe hypokinesis of the mid anteroseptal, anterior, and apical mancilla. Normal left ventricular wall thickness. Impaired diastolic relaxation Grade I. Ejection fraction is visually estimated at 40%. Left Atrium: The left atrium is normal in size. Right Ventricle: Normal right ventricular size. Normal right ventricular systolic function. Right Atrium: The right atrium is normal in size. Aortic Valve: Normal structure of the aortic valve. No evidence of hemodynamically significant aortic stenosis by Doppler. No aortic regurgitation. Mitral Valve: Normal structure of the mitral valve. Trivial regurgitation of the mitral valve. Pulmonic Valve: Pulmonic valve not well visualized. Trivial regurgitation in the pulmonic valve. Tricuspid Valve: Normal structure of the tricuspid valve. Trivial regurgitation in the tricuspid valve. Pericardium: Normal pericardium with no significant pericardial effusion. Aorta: Normal aortic root. IVC: Normal size and normal respiratory collapse consistent with normal right atrial pressure (<5 mmHg). CONCLUSIONS: Technically difficult study with limitedviews. Normal left ventricular size. Left ventricle not well visualized. There is severe hypokinesis of the mid anteroseptal, anterior, and apical mancilla. Normal left ventricular wall thickness. Impaired diastolic relaxation Grade I. Ejection fraction is visually estimated at 40 %. Normal right ventricular size. Normal right ventricular systolic function. Normal structure of the mitral valve. Trivi al regurgitation of the mitral valve. Normal structure of the tricuspid valve. Trivial regurgitation in the tricuspid valve. Electronically Signed By: Rylee Brito DO, FACJustyna, [place], [facility] 2021-05-02 14:07:25 STAFF FORESTER CC: CC: CC: ASSESSMENT/PLAN Hyponatremia from SIADH and possibly from zaroxylyn use. Work up for hyponatremia ongoing. PO FR. No normotonic fluids yet. Urine lytes and osm. If in clinical fluid overload, can use tolvaptan. Renal fn is better. Na better with loop diuresis, use PRN. Daily BMP. Na 133 and acceptable. ?? Recent bladder tumor removal with hematuria. ?? -??Urology is following.H/H stable -Cysto vs conservative tx. -Voiding trial, hematuria has stopped. -Epistaxis Use nasal pillows. -CHF with decompensation Continue diuresis. RHC not done. Agree with Chandu. ?? Hypokalemia from diuresis. Replace PRN. ?? 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 COVID positive. Per protocol. On Remdisivir and Dex. ?? Syncopal episode -(+) orthostasis -receiving albumin -IV lasix was discontinued. ??There is a 1x order for zaroxolyn 10mg this am- recommend holding fornow. ??D/w RN ?? Coronary artery disease -s/p CABG post STEMI -??underwent four-vessel bypass ??MAE to the LAD, sequential saphenous vein graft to diagonal and obtuse marginal and a vein graft to the PDA. -s/p??low dose dobutamine -paced rhythm ?? Moderate LV dysfunction -s/p IV??lasix??and??low dose??dobutamine -Beta blockers, ??POL[place] once off dobutamine-would hold off adding given syncopal episode this am -repeat ECHO 05/07 EF 42% (see above) ?Nonsustained ventricular tachycardia -no recurrence of VT -K 3.7, Mg??2.0. ??Supplement to keep K >/= 4.0, Mg >/= 2.0 ?Diabetes mellitus -?on lantus and SSI ?? COPD: ?? -on?O2 NC??4L (dried blood to L nare humidified o2 ordered) ?? Dyslipidemia -?Continue atorvastatin. ?PAD -?Stable ? Anemia -Hb??11.4 (10.5)??(8.6) -monitor ?? I can be reached at [phone] with any concerns. Thank you Rhina Granados MD for the consult. Yves Weinberg [facility] [employer] [phone] F FORESTER * Natalie Castañeda NP - 05/24/2021 1:20 PM CST Daily Progress SUBJECTIVE: Mr. Alvarado is in no distress, remains on optiflow, alert and oriented per RN, no complaints stressed to RN OBJECTIVE: Vitals: 05/24/21 0400 05/24/21 0415 05/24/21 0430 05/24/21 0802 BP: 112/78 105/68 115/69 BP Location: Left arm Patient Position: HOB 30 degrees Pulse: 71 72 71 Resp: 18 23 25 Temp: 36.7 ??C (98.1 ??F) TempSrc: Oral SpO2: 95% Weight: Height: Intake/Output Summary (Last 24 hours) at 05/24/2021 1320 Last data filed at 05/24/2021 0955 Gross per 24 hour Intake 1769 ml Output 2535 ml Net -766 ml Scheduled Medications Medication Dose Route Frequency ??? albuterol HFA (PROVENTIL HFA,VENTOLIN HFA,PROAIR HFA) 90 mcg/actuation inhaler 8 puff 8 puff inhalation Q4H While awake (RT) ??? aspirin enteric coated tablet 81 mg 81 mg oral Daily ??? atorvastatin (LIPITOR) tablet 80 mg 80 mg oral Nightly ??? dapagliflozin (FARXIGA) tablet 10 mg 10 mg oral Daily ??? dexAMETHasone (DECADRON) 4 mg/mL injection 6 mg 6 mg intravenous Daily ??? docusate sodium (COLACE) capsule 100 mg 100 mg oral BID ??? enoxaparin (LOVENOX) syringe 40 mg 40 mg subcutaneous Daily-2100 ??? insulin lispro (HumaLOG, ADMELOG) 100 unit/mL injection 0-10 Units 0-10 Units subcutaneous TID with meals ??? insulin lispro (HumaLOG, ADMELOG) 100 unit/mL injection 0-5 Units 0-5 Units subcutaneous Nightly ??? insulin lispro (HumaLOG, ADMELOG) 100 unit/mL injection 7 Units 0.083 Units/kg subcutaneous TIDwith meals ??? insulin NPH (HumuLIN N, NovoLIN N) 100 unit/mL injection 8 Units 8 Units subcutaneous Q6H LEAH ??? ivabradine (CORLANOR) tablet 5 mg 5 mg oral BID with meals (bkfst, dinner) ??? midodrine (PROAMATINE) tablet 15 mg 15 mg oral TID ??? pantoprazole DR (PROTONIX) extended release tablet 40 mg 40 mg oral Daily ??? QUEtiapine (SEROquel) tablet 50 mg 50 mg oral Nightly ??? sodium chloride 0.9% flush 0.5-20 mL 0.5-20 mL intra-catheter Q8H LEAH ??? sodium phosphate - potassium phosphate (K-PHOS NEUTRAL) tablet 250 mg 250 mg oral TID with meals ??? spironolactone (ALDACTONE) tablet 25 mg 25 mg oral Daily ??? tamsulosin (FLOMAX) extended release capsule 0.4 mg 0.4 mg oral Daily with dinner LABS: Recent Labs Lab Units 05/24/21 0348 WBC K/cumm 10.7* HEMOGLOBIN g/dL 9.6* HEMATOCRIT % 29.5* PLATELETS K/cumm 457* Recent Labs Lab Units 05/24/21 1218 05/24/21 0646 05/24/21 0348 05/19/21 0143 05/18/21 2137 SODIUM mmol/L -- -- 133* < > -- POTASSIUM PLASMA mmol/L -- -- 4.3 < > -- CHLORIDE mmol/L -- -- 96* < > -- CO2 mmol/L -- -- 24 < > -- ANIONGAP mmol/L -- -- 13 < > -- GLUCOSE mg/dL -- -- 142 < > -- POC GLUCOSE MONITOR mg/dL 157 < > -- < > -- BUN SERUM mg/dL -- -- 23 < > -- CREATININE mg/dL -- -- 0.60* < > -- CALCIUM mg/dL -- -- 8.8 < > -- ALBUMIN g/dL -- -- -- -- 3.6 ALK PHOS Units/L -- -- -- -- 86 ALT Units/L -- -- -- -- 18 AST Units/L -- -- -- -- 60* BILIRUBIN TOTAL mg/dL -- -- -- -- 0.6 < > = values in this interval not displayed. Recent Labs Lab Units 05/24/21 0348 CHOLESTEROL mg/dL 131 TRIGLYCERIDES mg/dL 133 HDL mg/dL 31* Exam Physical exam deferred 07/22, examined at window, case discussed with RN and Dr Cooley TTE 05/18/21 CONCLUSIONS: Technically difficult study with limited views. [...] mmHg. Trivial regurgitation in the tricuspid valve. ASSESSMENT/PLAN: CAD + STEMI s/p CABG - Cardiac cath 05/01 with 40% distal LM, 100% prox LAD, 90% prox Cx, 50% prox and distal RCA - Echo 05/02 EF 37%, CABGx4 05/04/2021 - SR 80s on built.io -CTS following COVID 19 - dx 05/19/2021 - on Remdesivir and dexamethasone -on optiflow -pulmonology following ?? Acute Respiratory failure - Lung infiltrates per CXR on 05/19, completed Abx, COVID + - transferred to ICU 05/17 for increasing oxygen requirments - on Optiflow - Pulm following ?? Hematuria - cysto 05/14 - resolved ?? Urinary retention -urology following S/p Cardiogenic shock + Hypotension - off pressors -midodrine TID -BP improving ?? Hypokalemia - on K supplement - improved ?? Hx V. Fib - brief on 05/03 - treated w/ Amiodarone and Dobutamine gtt, resolved - SR 80s on tele -4 beat episode of NSVT 05/23 ?? HLD - on Statin Natalie Castañeda NP [facility] 05/24/2021 1:20 PM Cosigned by Blue Cooley Jr., MD at 05/24/2021 1:31 PM STAFF FORESTER F FORESTER F FORESTER * Anibal Lara MD - 05/24/2021 11:53 AM CST Hospitalist Progress Note Name: Deepak Alvarado Admission Date: 05/01/2021 Today's Date: 05/24/2021 Subjective: Pt seen and examined Clinical course: Overall pt condition has improved. Still on 4L per NC today 05/16: feels ok today, on 5L per NC 05/17: transferred to ICU for worsening respiratory distress requiring more O2 05/20: remains in the ICU, on Optiflow today 05/21: about the same today, Optiflow 05/22: still on Optiflow, back on Insulin gtt 05/23: no major changes , still on Optiflow 05/24: remains on Optiflow Objective: Vitals: 05/24/21 0400 05/24/21 0415 05/24/21 0430 05/24/21 0802 BP: 112/78 105/68 115/69 BP Location: Left arm Patient Position: HOB 30 degrees Pulse: 71 72 71 Resp: 18 23 25 Temp: 36.7 ??C (98.1 ??F) TempSrc: Oral SpO2: 95% Weight: Height: Wt Readings from Last 3 Encounters: 05/23/21 79.5 kg (175 lb 4.3 oz) 08/27/13 114.3 kg (252 lb) 10/19/12 111.6 kg (246 lb) I/O last 3 completed shifts: In: 2817 [P.O.:1200; I.V.:1617] Out: 3485 [Urine:3485] I/O this shift: In: 357 [P.O.:357] Out: 200 [Urine:200] Scheduled Meds Current Facility-Administered Medications Medication Dose Route Frequency Provider Last Rate Last Admin ??? acetaminophen (TYLENOL) tablet 650 mg 650 mg oral Q6H PRN Eleonora Duarte NP 650 mg at 05/21/21 1545 ? ? al & mag hydroxide orqrawaawat-kyaugficgormbdm-vzxtzyxmh-nystatin (MAGIC MOUTHWASH) suspension 1-1-1-1 20 mL swish & spit Q4H PRN Elena Kelly NP ??? albuterol 2.5 mg /3 mL (0.083 %) nebulizer solution 2.5 mg 2.5 mg nebulization Q4H PRN (RT) Ralf Tomlinson MD 2.5 mg at 05/17/21 0224 ??? albuterol HFA (PROVENTIL HFA,VENTOLIN HFA,PROAIR HFA) 90 mcg/actuation inhaler 8 puff 8 puff inhalation Q4H While awake (RT) Ralf Tomlinson MD 8 puff at 05/24/21 08 ??? aspirin enteric coated tablet 81 mg 81 mg oral Daily Varsha Crowder NP 81 mg at 05/24/21845 ??? atorvastatin (LIPITOR) tablet 80 mg 80 mg oral Nightly Rhina Granados MD 80 mg at 05/23/212057 ??? dapagliflozin (FARXIGA) tablet 10 mg 10 mg oral Daily Stephen Melgar MD 10 mg at 12/05/21 0846 ??? dexAMETHasone (DECADRON) 4 mg/mL injection 6 mg 6 mg intravenous Daily Silviano Huddleston NP 6 mg at 05/24/21 0846 ??? dextrose oral liquid liquid 15 g 15 g oral Q15 Min PRN Silviano Huddleston NP Or ??? dextrose (D10W) 10% bolus 250 mL 250 mL intravenous Q15 Min PRN Silviano Huddleston NP ??? dextrose oral liquid liquid 15 g 15 g oral Q15 Min PRN Anibal Lara MD ??? docusate sodium (COLACE) capsule 100 mg 100 mg oral BID Rhina Granados MD 100 mg at 05/24/21 0846 ??? enoxaparin (LOVENOX) syringe 40 mg 40 mg subcutaneous Daily-2100 Rhina Granados MD 40 mg at107/24/202057 ??? glucagon injection 1 mg 1 mg intramuscular Q30 Min PRN Anibal Lara MD ??? glucagon injection 1 mg 1 mg intramuscular Q30 Min PRN Silviano Huddleston NP ??? guaiFENesin (ROBITUSSIN) 20 mg/mL oral liquid 200 mg 200 mg oral QID PRN Caleb Toth PA 200 mg at 05/21/21 0810 ??? insulin lispro (HumaLOG, ADMELOG) 100 unit/mL injection 0-10 Units 0-10 Units subcutaneous TID with meals Silviano Huddleston NP 4 Units at 05/23/21 1819 ??? insulin lispro (HumaLOG, ADMELOG) 100 unit/mL injection 0-5 Units 0-5 Units subcutaneous Nightly Silviano Huddleston NP 1 Units at 05/23/21 2131 ??? insulin lispro (HumaLOG, ADMELOG) 100 unit/mL injection 7 Units 0.083 Units/kg subcutaneous TIDwith meals Silviano Huddleston NP 7 Units at 05/24/21 0958 ??? insulin NPH (HumuLIN N, NovoLIN N) 100 unit/mL injection 8 Units 8 Units subcutaneous Q6H LEAH Silviano Huddleston, EFREN 8 Units at 05/24/21 0639 ??? ivabradine (CORLANOR) tablet 5 mg 5 mg oral BID with meals (bkfst, dinner) Stephen Melgar MD 5mg at 05/24/21845 ??? midodrine (PROAMATINE) tablet 15 mg 15 mg oral TID Silviano Huddleston NP 15 mg at 05/24/21 0846 ??? ondansetron (ZOFRAN) injection 4 mg 4 mg intravenous Q6H PRN Rhina Granados MD ??? pantoprazole DR (PROTONIX) extended release tablet 40 mg 40 mg oral Daily Rhina Granados MD40 mg at 05/24/21845 ??? polyethylene glycol (MIRALAX) packet 17 g 17 g oral Daily PRN Rhina Granados MD ??? QUEtiapine (SEROquel) tablet 50 mg 50 mg oral Nightly Silviano Huddleston NP 50 mg at ??? sodium chloride 0.9% flush 0.5-20 mL 0.5-20 mL intra-catheter Q8H LEAH hRina Granados MD 10 mL at 05/24/21640 ??? sodium phosphate - potassium phosphate (K-PHOS NEUTRAL) tablet 250 mg 250 mg oral TID with meals Silviano Huddleston NP 250 mg at 05/24/21845 ??? spironolactone (ALDACTONE) tablet 25 mg 25 mg oral Daily Stephen Melgar MD 25 mg at 05/24/21845 ??? tamsulosin (FLOMAX) extended release capsule 0.4 mg 0.4 mg oral Daily with dinner Elena Kelly NP 0.4 mg at 05/23/21 1806 ??? acetaminophen ? ? al & mag hydroxide njneomsjdmu-bvthawekqwlkfju-rhiijcjia-nystatin ??? albuterol ??? dextrose OR dextrose ??? dextrose OR [DISCONTINUED] dextrose ??? glucagon ??? glucagon ??? guaiFENesin ??? ondansetron ??? polyethylene glycol Physical Exam: General: alert, cooperative, no distress, appears stated age HEENT: Head:normacephalic, Eyes: Perrla, EOMI bilaterally, nasal and oral mucosal pink and moist Heart: normal rate, regular rhythm, normal S1, S2, no murmurs, rubs, clicks or gallops Lungs: clear to auscultation, no wheezes or rales and unlabored breathing Abdomen: soft, nontender, nondistended, no masses or organomegaly Extremities: peripheral pulses normal, no pedal edema, no clubbing or cyanosis Neuro: alert, oriented x 3, no defects noted in general exam. Lab Data Laboratory review: Chemistry CMP: Lab Results Component Value Date BUNSER 23 05/24/2021 CALCIUM 8.8 05/24/2021 CO2 24 05/24/2021 CHLORIDE 96 (L) 05/24/2021 CREATININE 0.60 (L) 05/24/2021 GLUCOSE 109 05/24/2021 GLUCOSE 142 05/24/2021 POTASSIUM 4.3 05/24/2021 SODIUM 133 (L) 05/24/2021 , CBC: Lab Results Component Value Date WBC 10.7 (H) 05/24/2021 RBC 3.24 (L) 05/24/2021 HGB 9.6 (L) 05/24/2021 HCT 29.5 (L) 05/24/2021 MCV 91.0 05/24/2021 MCH 29.6 05/24/2021 MCHC 32.5 05/24/2021 RDWCV 13.2 05/24/2021 RDWSD 43.6 05/24/2021 MPV 11.6 05/24/2021 NRBCABS 0.00 05/24/2021 , Coags: No results found for: PT, PTT, APTT, FFN, FIBRINOGEN, INR, ACTIVATEDCL, Lipids: Lab Results Component Value Date CHOL 131 05/24/2021 HDL 31 (L) 05/24/2021 LDLCALC 73 05/24/2021 TRIG 133 05/24/2021 CHOLHDL 4 05/24/2021 , Cardiac Enzymes: No results found for: CKTOTAL, CKMB, CKMBINDEX, TROPONINT and POC Glucose: Lab Results Component Value Date GLUCOSE 109 05/24/2021 GLUCOSE 142 05/24/2021 Home Medications have been reviewed and updated on pt's list Assessment and Plan Acute resp failure - self ext 05/05/21 -Lung infiltrates - pulm vascular congestion/CHF, and suspected pneumonia - completed Zosyn -COVID19 (+) 05/19 -started on Decadron and Remdesivir 05/19 -PRN IV Lasix -pt was on BiPAP last night, today on Optiflow -pulmonology follows -per cards added Farxiga, Aldactone, and Corlanor 05/23 Near syncope/Syncope episode, probable vaso vagal, monitor ?? Acute anterior STEMI with CAD , s/p PCI to LAD -s/p CABG x 4 05/04 given re thrombosis of existing stents -s/p IABP, removed 05/06 - ASA, ??statins, off Plavix due to hematuria, BBs on hold due to hypotension ?? Post CABG cardiogenic shock, hypotensive again - s/p??Dobutamine gtt and Levophed -now on Midodrine ?? Ventricular fibrillation - briefly on 05/03 - treated with Amiodarone and Dobutamine gtt, off them ?? Gross Hematuria ?- in a pt with hx of ??cystoscopy, -clot evacuation and transurethral resection of bladder tumor at [facility] -s/p 20??German three way catheter -holding Plavix -cysto 05/14 with clot evacuation and fulguration ? Type 2 diabetes.??- Back on Insulin gtt ?? Acute blood loss anemia ; -s/p PRBC transfusions in ICU - monitor HH, today 9.5 ?? Mild hyponatremia, monitor ?? Hx of ??Tobacco use. ?? DVT prophylaxis :Lovenox Pt will need continued inpatient management for the above medical issues. Code status: full Anibal Hughes MD [facility] Hospitalist 05/24/2021 11:53 AM F FORESTER * Lc Perez MD - 05/24/2021 9:14 AM CST Pulmonary Daily Progress Chief complaint/reason for consult: Respiratory failure. Interval History: Patient with improved oxygenation. Currently on 60% FiO2 45 liters/minute. Remains on dexamethasoneand remdesivir. COVID positive 05/19/21 Presenting History: 60 yo man w COPD, DM, CAD/stents admitted 05/01/21 with chest pain. Had recent hematuria as well. Workup revealed an acute MT. Cath showed multi-vessel CAD. Had balloon pump placed. CABG x 4 done on 05/04/21. He was continued on mechanical ventilation and self extubated this AM (05/05/21). He is on multiple pressors. Sedated with precedex. Some tachypnea. A balloon pump is in place. Current tobacco use. COPD listed as prior diagnosis. No inhalers on home med list. Allergies: Allergies Allergen Reactions ??? Metoclopramide Medications: Scheduled Meds:albuterol HFA, 8 puff, inhalation, Q4H While awake (RT) aspirin, 81 mg, oral, Daily atorvastatin, 80 mg, oral, Nightly dapagliflozin, 10 mg, oral, Daily dexAMETHasone, 6 mg, intravenous, Daily docusate sodium, 100 mg, oral, BID enoxaparin, 40 mg, subcutaneous, Daily-2100 insulin lispro, 0-10 Units, subcutaneous, TID with meals insulin lispro, 0-5 Units, subcutaneous, Nightly insulin lispro, 0.083 Units/kg, subcutaneous, TID with meals insulin NPH, 8 Units, subcutaneous, Q6H LEAH ivabradine, 5 mg, oral, BID with meals (bkfst, dinner) midodrine, 15 mg, oral, TID pantoprazole DR, 40 mg, oral, Daily QUEtiapine, 50 mg, oral, Nightly sodium chloride 0.9%, 0.5-20 mL, intra-catheter, Q8H LEAH sodium phosphate - potassium phosphate, 250 mg, oral, TID with meals spironolactone, 25 mg, oral, Daily tamsulosin, 0.4 mg, oral, Daily with dinner Continuous Infusions: PRN Meds:.??? acetaminophen ? ? al & mag hydroxide kdnzuzpfysu-bbdbsicwmssdrji-iakiyryzr-nystatin ??? albuterol ??? dextrose OR dextrose ??? dextrose OR [DISCONTINUED] dextrose ??? glucagon ??? glucagon ??? guaiFENesin ??? ondansetron ??? polyethylene glycol ROS Above review of system reviewed on 05/24/2021 Vitals: Vitals: 05/24/21 0400 05/24/21 0415 05/24/21 0430 05/24/21 0802 BP: 112/78 105/68 115/69 BP Location: Left arm Patient Position: HOB 30 degrees Pulse: 71 72 71 Resp: 18 23 25 Temp: 36.7 ??C (98.1 ??F) TempSrc: Oral SpO2: 95% Weight: Height: Temp (24hrs), Av.7 ??C (98 ??F), Min:36.4 ??C (97.6 ??F), Max:36.9 ??C (98.5 ??F) FiO2 (%): [60 %-85 %] 60 % Intake/Output Summary (Last 24 hours) at 05/24/2021 0914 Last data filed at 05/24/2021 0600 Gross per 24 hour Intake 1892 ml Output 2510 ml Net -618 ml Physical Exam Constitutional: General: He is not in acute distress. Appearance: He is well-developed. HENT: Head: Normocephalic and atraumatic. Eyes: Conjunctiva/sclera: Conjunctivae normal. Neck: Thyroid: No thyromegaly. Cardiovascular: Rate and Rhythm: Normal rate and regular rhythm. Heart sounds: No murmur heard. Pulmonary: Effort: Pulmonary effort is normal. No respiratory distress. Breath sounds: Normal breath sounds. No wheezing or rales. Chest: Comments: Sternotomy incision Abdominal: General: Bowel sounds are normal. Palpations: Abdomen is soft. Skin: General: Skin is warm and dry. Neurological: Mental Status: He is alert. Lab/Radiology/Diagnostic Review: Labs: Recent Labs Lab Units 05/24/21 0348 05/23/21 0318 05/22/21 0349 WBC K/cumm 10.7* 10.0* 7.3 HEMOGLOBIN g/dL 9.6* 9.0* 9.2* HEMATOCRIT % 29.5* 27.8* 28.0* PLATELETS K/cumm 457* 408* 381 Recent Labs Lab Units 05/24/21 0851 05/24/21 0646 05/24/21 0348 05/23/21 0402 05/23/21 0318 05/22/21 0625 05/22/21 0349 05/19/21 0143 05/18/21 2137 SODIUM mmol/L -- -- 133* -- 132* -- 134* < > -- POTASSIUM PLASMA mmol/L -- -- 4.3 -- 3.5 -- 3.5 < > -- CHLORIDE mmol/L -- -- 96* -- 95* -- 98 < > -- CO2 mmol/L -- -- 24 -- 23 -- 22 < > -- ANIONGAP mmol/L -- -- 13 -- 14 -- 14 < > -- GLUCOSE mg/dL -- -- 142 < > 141 < > 227* < > -- POC GLUCOSE MONITOR mg/dL 109 119 -- < > 137 < > -- < > -- BUN SERUM mg/dL -- -- 23 -- 21 -- 24 < > -- CREATININE mg/dL -- -- 0.60* -- 0.48* -- 0.62* < > -- CALCIUM mg/dL -- -- 8.8 -- 8.4* -- 8.6 < > -- ALBUMIN g/dL -- -- -- -- -- -- -- -- 3.6 ALK PHOS Units/L -- -- -- -- -- -- -- -- 86 ALT Units/L -- -- -- -- -- -- -- -- 18 AST Units/L -- -- -- -- -- -- -- -- 60* BILIRUBIN TOTAL mg/dL -- -- -- -- -- -- -- -- 0.6 < > = values in this interval not displayed. Recent Labs Lab Units 05/18/211952 PH ART 7.45 PCO2 ART mmHg 32* PO2 ART mmHg 58* HCO3 ART (CALC) mmol/L 23 BASE EXC ART mmol/L -2 O2 SAT ART (JOELLE) % 89* Imaging: CT chest 05/19/21: b gg inf, severe emphysema Other diagnostic tests: I have personally reviewed above laboratory findings, chest imaging, and diagnostic tests 05/24/2021 Assessment and Plan: Acute respiratory failure Acute MT w CAD s/p CABG x 4 on 05/04/21, past hx multiple stents Cardiogenic shock, resolved Cardiomyopathy EF 40% V fib COPD: severe emphysematous changes on CT Anemia Hematuria s/p cystoscopy/fulguration COVID 19, diagnosed 05/19/21, resp status began worsening 05/15/21 ?? Recs: Oxygen support, wean as able Dexamethasone started 05/19 On remdesivir Incentive spirometry Scheduled albuterol abx coverage for pna: Zosyn, completed Scheduled bronchodilators Increase activity as tolerated Chart reviewed F FORESTER * Silviano Huddleston NP - 05/24/2021 8:09 AM CST Images from the original note were not included. Critical Care Medicine Daily Progress Team: Community AM Subjective Patient is a 60 y.o. y/o male admitted on 05/01/2021 5:20 PM with the following indication(s) for ICU care COVID PNA. Interval History: -continue to wean fiO2 -OOBTC HPI (05/17) 60M smoker hx copd, obesity, pvd, htn, hld, dm2 & CAD s/p multiple LAD stents who p/w anterior STEMI after bladder procedure on 04/29. [facility] was [facility] to [facility] where they found in-stent thrombosis and an angioplasty was performed but stent could not be placed. A balloon pump was placed and the patient was transferred to the CVU. CT-surgery was consulted for CABG. The patie nt underwent a 4 vessel cabg on 05/04 w/ Dr. Granados (MAE->LAD, Saph vein->diag & obtuse, Saph->PDA). He developed rebleeding from his bladder tumor and this was adressed by urology. Heself extubated the next day after his CABG. His osorio was removed yesterday and he is currently post op day 11 from the CABG. He has been getting diuresed on the floor but has unfortunately had increasing oxygen requirement for the last 24 hours despite diuresis. He is currently on a non-rebreatherand being transferred to the ICU.? Hospital Course 04/29 Cystoscopy at [facility] 04/30 STEMI, [facility] -> instent thrombosis, angioplasty, IABP, transfer to [facility] 05/04/21: Increased blood clot from osorio and obstruction with pain.?? 05/05/21: Brief asystole o/n w turning. Stable after. Self extubated in AM.?? 05/06/21: NAEON. Maintained on CPAP and optiflow.?? 05/07/21: NAEON. Up in chair at time of exam. TTF 05/10 near syncopal episode 05/14 cystoscopy with clot removal and fulguration of bleeding 05/17 readmit to ICU with pulmonary edema, lasix drip 05/18 Nasal cannula, on/off pressors, Negative VQ, ACTH Stim unremarkable 05/19 COVID positive, 15 L/NC, Remdesivir, dexamethasone 05/21 coude catheter placed, remains on optiflow, updated 05/22 increase seroquel, on optiflow 40L 75% 05/23 HF meds started, Lasix 40mg 05/24 FiO2 at 60% Scheduled Medications: albuterol HFA, 8 puff, inhalation, Q4H While awake (RT) aspirin, 81 mg, oral, Daily atorvastatin, 80 mg, oral, Nightly dapagliflozin, 10 mg, oral, Daily dexAMETHasone, 6 mg, intravenous, Daily docusate sodium, 100 mg, oral, BID enoxaparin, 40 mg, subcutaneous, Daily-2100 insulin lispro, 0-10 Units, subcutaneous, TID with meals insulin lispro, 0-5 Units, subcutaneous, Nightly insulin lispro, 0.083 Units/kg, subcutaneous, TID with meals insulin NPH, 8 Units, subcutaneous, Q6H LEAH ivabradine, 5 mg, oral, BID with meals (bkfst, dinner) midodrine, 15 mg, oral, TID pantoprazole DR, 40 mg, oral, Daily QUEtiapine, 50 mg, oral, Nightly sodium chloride 0.9%, 0.5-20 mL, intra-catheter, Q8H LEAH sodium phosphate - potassium phosphate, 250 mg, oral, TID with meals spironolactone, 25 mg, oral, Daily tamsulosin, 0.4 mg, oral, Daily with dinner Continuous Medications: PRN Medications: ??? acetaminophen ? ? al & mag hydroxide utkdtawgfab-uxscrczkzieqlaj-riudeexbt-nystatin ??? albuterol ??? dextrose OR dextrose ??? dextrose OR [DISCONTINUED] dextrose ??? glucagon ??? glucagon ??? guaiFENesin ??? ondansetron ??? polyethylene glycol Objective Vitals: Most Recent: Vitals: 05/24/21 1552 BP: Pulse: Resp: Temp: SpO2: 95% 24hr Min/Max: Temp Min: 36.6 ??C (97.8 ??F) Max: 36.9 ??C (98.5 ??F) Pulse Min: 70 Max: 107 BP Min: 83/55 Max: 115/69 Resp Min: 15 Max: 32 SpO2 Min: 91 % Max: 98 % LDA: PICC Double Lumen 05/18/21 Non-tunneled Power #1 Red, #2 Purple, Right Upper arm;Brachial (Active) Placement Date/Time: 05/18/21 1200 Catheter Time Out Checklist Completed: Yes Hand Hygiene Performed: Yes Site Prep: Alcohol;Betadine;Chlorhexidine Site Prep Agent has Completely Dried Before Insertion: Yes All 5 Sterile Barriers or Appropriate ... Number of days: 2 Vent settings: FiO2 (%): [55 %-60 %] 60 % Hemodynamic parameters for last 24 hours: I/O: Date 05/23/21 0700 - 05/24/21 0659 05/24/21 0700 - 05/25/21 0659 Shift 8447-5997 9933-3488 24 Hour Total 1028-1556 5409-2262 24 Hour Total INTAKE P.O. 9585 284 9394 357 357 I.V.(mL/kg) 165(2.1) 527(6.6) 692(8.7) Shift Total(mL/kg) 1245(15.7) 647(8.1) 1892(23.8) 357(4.5) 357(4.5) OUTPUT Urine(mL/kg/hr) 1845(1.9) 790(0.8) 2635(1.4) 200 200 Shift Total(mL/kg) 1845(23.2) 790(9.9) 2635(33.1) 200(2.5) 200(2.5) [facility] -957 -070 -972 157 157 Weight (kg) 79.5 79.5 79.5 79.5 79.5 79.5 Physical Exam: Neuro- A&Ox4, FC, PERRL, weak CV- NSR, normotensive Resp- Diminished to auscultation, on optiflow GI- soft, n/d, n/t Msk- warm, palpable pulses Drain- none Wound- sternotomy, R leg incision Lab/Radiology/Diagnostic Review: Laboratory review: Lab results in the last 24 hours: Recent Results (from the past 24 hour(s)) POCT glucose Collection Time: 05/23/21 6:14 PM Result Value Ref Range Glucose, POC 226 (H) 70 - 199 mg/dL POCT glucose Collection Time: 05/23/21 9:11 PM Result Value Ref Range Glucose, POC 162 70 - 199 mg/dL POCT glucose Collection Time: 05/23/21 11:21 PM Result Value Ref Range Glucose, POC 179 70 - 199 mg/dL Albumin Creatinine Ratio, Urine Collection Time: 05/24/21 3:48 AM Result Value Ref Range Albumin Ur <12.0 mg/L Creatinine Ur 55.2 mg/dL Albumin Creatinine Ratio, Ur <22 1 - 29 mg/g Phosphorus Collection Time: 05/24/21 3:48 AM Result Value Ref Range Phosphorus, pl 3.3 2.3 - 4.5 mg/dL Magnesium Collection Time: 05/24/21 3:48 AM Result Value Ref Range Magnesium 2.1 1.4 - 2.5 mg/dL CBC without differential Collection Time: 05/24/21 3:48 AM Result Value Ref Range WBC 10.7 (H) 3.8 - 9.9 K/cumm Hgb 9.6 (L) 13.0 - 17.5 g/dL Hct 29.5 (L) 38.9 - 50.3 % Plt 457 (H) 150 - 400 K/cumm MPV 11.6 9.1 - 12.3 fL RBC 3.24 (L) 4.30 - 5.80 M/cumm MCV 91.0 81.3 - 96.4 fL MCH 29.6 27.1 - 33.3 pg MCHC 32.5 32.3 - 35.7 g/dL RDW CV 13.2 11.1 - 14.9 % RDW SD 43.6 35.7 - 48.1 fL NRBC abs 0.00 0.00 - 0.01 K/cumm Basic metabolic panel Collection Time: 05/24/21 3:48 AM Result Value Ref Range Sodium 133 (L) 135 - 145 mmol/L Potassium, pl 4.3 3.3 - 4.9 mmol/L Chloride 96 (L) 97 - 110 mmol/L CO2 24 22 - 32 mmol/L Anion gap 13 2 - 15 mmol/L BUN 23 8 - 25 mg/dL Creatinine 0.60 (L) 0.80 - 1.30 mg/dL Glucose 142 70 - 199 mg/dL Calcium 8.8 8.5 - 10.3 mg/dL Vitamin D 25 hydroxy Collection Time: 05/24/21 3:48 AM Result Value Ref Range Vitamin D, 25-hydroxy 10 (L) 30 - 80 ng/mL Lipid panel Collection Time: 05/24/21 3:48 AM Result Value Ref Range Cholesterol 131 30 - 199 mg/dL Triglycerides 133 <=149 mg/dL HDL 31 (L) >=40 mg/dL LDL, calculated 73 <=129 mg/dL Non-HDL Cholesterol 100 mg/dL Chol/HDL ratio 4 Ferritin Collection Time: 05/24/21 3:48 AM Result Value Ref Range Ferritin 1,861 (H) 30 - 400 ng/mL Folate Collection Time: 05/24/21 3:48 AM Result Value Ref Range Folic acid 10.2 >=5.0 ng/mL Hepatitis panel, acute Collection Time: 05/24/21 3:48 AM Result Value Ref Range Hep A IgM Nonreactive Nonreactive Hep B core IgM Nonreactive Nonreactive Hep C Ab Nonreactive Nonreactive HepBsAg Nonreactive Nonreactive Iron profile w/ IBC Collection Time: 05/24/21 3:48 AM Result Value Ref Range Iron 26 (L) 50 - 150 mcg/dl TIBC 174 (L) 250 - 400 mcg/dL Transferrin saturation 15 (L) 20 - 50 % Vitamin B12 Collection Time: 05/24/21 3:48 AM Result Value Ref Range Vitamin B12 879 230 - 1,250 pg/mL eGFR Collection Time: 05/24/21 3:48 AM Result Value Ref Range eGFR 110 mL/min/1.73 m2 POCT glucose Collection Time: 05/24/21 6:46 AM Result Value Ref Range Glucose, POC 119 70 - 199 mg/dL POCT glucose Collection Time: 05/24/21 8:51 AM Result Value Ref Range Glucose, POC 109 70 - 199 mg/dL POCT glucose Collection Time: 05/24/21 12:18 PM Result Value Ref Range Glucose, POC 157 70 - 199 mg/dL POCT glucose Collection Time: 05/24/21 5:04 PM Result Value Ref Range Glucose, POC 164 70 - 199 mg/dL CT Chest WO Contrast Result Date: 05/19/2021 1. STATUS POST MEDIAN STERNOTOMY. 2. RIGHT-SIDED PICC CATHETER IN PLACE. 3. CORONARY ARTERY DISEASE. 4. MODERATE EMPHYSEMATOUS CHANGES IN THE LUNGS. 5. PATCHY ALVEOLAR INFILTRATE IN BOTH LUNGS. THISCAN BE SEEN WITH A VIRAL-TYPE PNEUMONITIS. Electronically signed by: Humphrey Mojica M.D. XR Chest 1 View Result Date: 05/19/2021 Persistent ill-defined patchy left perihilar upper and lower lobe alveolar infiltrate and mild on the right. Electronically signed by: Joie Bernardo M.D. Plan: Neuro: #Acute pain - Tylenol ?? #Insomnia - Seroquel 50 mg CV: #Severe multivessel CAD s/p CABG #STEMI #HFrEF, chronic - S/p CABG by MD Granados - CCL (04/30) -> in-stent restenosis, unsuccessful angioplasty, IABP placed - ASA/Atorvastatin, holding plavix - Unable to tolerate ACEi or BB at this time, HF meds started 05/23 - Cardiology following - CTS following - TTE (05/17) -> EF 35-40% ?? Pulmonary: #Acute hypoxic respiratory failure 2/2 #COVID 19 pneumonia - Increasing O2 overnight -> up to 15L/NC, NPPV as needed - V/Q (05/18) -> low probability for PE - CT Chest (05/19) -> c/f viral pneumonia - COVID 19 positive (05/19) - Dexamethasone day 10/27 - Remdesivir end today - Aggressive pulmonary hygiene, IS, OOBTC in am - Maintain sats> 92% -optiflow 40L , 60% - Sniff test pending ?? GI: Diet: Heart healthy PUD PPx: Pantoprazole Bowel regimen: Docusate ?? Endo: #Hyperglycemia, likely 2/2 stress response - NPH 8units q6h with H resistant SSI AIC > 13.0 on admission - Frequent accuchecks - Endocrine following ?? Renal: #ISRRAEL - BUN/Cr 21/0.48 - FBG euvolemic, heavily diuresis previous days - trend renal function, avoid nephrotoxins, renal dose medications - optimize electrolytes with caution to renal function ?-goal K ~4, Mg >??2.2, phos >??3, iCAL >??4.5 ?-provide supplement as needed ?-AM BMP and electrolytes check ?? #Hematuria 07/22 #Bladder tumor - (05/14) Cystoscopy for clot evacuation and cessation of bleeding sites - 05/21 Coud?? placed, Consider removing osorio in AM - Urology following - Flomax ?? Heme: #ABLA 07/22 surgery - No active signs of bleeding - Transfuse for hgb < 8 - CBC in am, current hgb 9.6 ?? DVT PPX: SCD's/Lovenox ?? ID: #COVID 19 pneumonia - WBC: 10.7 - Tmax: 36.4 - Remdesivir ends today - Dexamethasone - CBC in am - Trend WBC and fever curve ICU standards of care: Physical therapy/Activity: OOBTC Access: PICC Goals of care: Full code Community AM Assessment and plan has been reviewed with attending, Dr. Jaja Huddleston NP Cosigned by Dominique Wilkinson MD at 05/25/2021 1:39 PM STAFF FORESTER F FORESTER F FORESTER * Yves Weinberg MD - 05/23/2021 5:15 PM CST Nephrology Progress Note [facility] SUBJECTIVE 05/23/21 Pt seen/examined. All labs reviewed. Receiving K phos. BP soft, on hi dose midodrine. Na 132. I gave lasix 40 iv times 1 for falling UO. Remains in ICU. 05/22/21 Pt seen/examined. All labs and data reviewed. Na 134, Cr 0.62. Dyspnea better. Eager to go home but remains in ICU. Stable renal fn and lytes. OK for loop diuretics PRN. Avoid thiazides. 05/21/21 Pt seen/examined. All labs reviewed. Off lasix drip. Still dyspneic. Renal fn better. Na 135. 05/20/21 Pt seen/examined. All labs and data reviewed. COVID pos. On Dex and remdisivir. On lasix drip. Na 130, Cr 1.44. 05/19 Cr 1.41 Na 130. Started on Corlanor. Appears stable. BP remains very soft. UO not accurate. 05/17 Transferred to ICU for hi O2 requirements. Has left nostril epistaxis. On low dose pressors and lasix and insulin drip. Na 128, should improve with loop diuresis. Cr 1.2. 05/16 Creatinine stable and sodium trending up.On IV lasix,lytes wnl.Osorio out,having some problems with retention- nurses in contact with urology,doing bladder scans. 05/15/21 Doing fair. Osorio out. Has not voided yet. Na 131 with loop diuresis and improved. All labs and data reviewed. Excellent UO. Doing fair. Some flank pain and mild dyspnea. Na 127 and a little lower. BP better. Agreeable to cysto, but urology planning on conservative tx. Will start loop diuresis. OBJECTIVE Vitals: Vitals: 05/23/21 1615 05/23/21 1630 05/23/21 1645 05/23/21 1700 BP: 112/62 100/60 102/58 97/57 BP Location: Patient Position: Pulse: 87 87 89 95 Resp: 28 Temp: TempSrc: SpO2: Weight: Height: Intake/Output Summary (Last 24 hours) at 05/23/2021 1715 Last data filed at 05/23/2021 1605 Gross per 24 hour Intake 1525 ml Output 1480 ml Net 45 ml REVIEW OF SYSTEMS Review of Systems Epistaxis, dyspnea. Constitutional: Negative. HENT: Negative. Eyes: Negative. Respiratory: Negative. Cardiovascular: Negative. Gastrointestinal: Negative. Genitourinary: Negative. Musculoskeletal: Negative. Skin: Negative. Allergic/Immunologic: Negative. Hematological: Negative. All other systems reviewed and are negative. PHYSICAL EXAM Physical Exam Constitutional: Appears well-developed. O2 on HENT: wnl Head: Normocephalic. Eyes: Pupils are equal, round, and reactive to light. Neck: Normal range of motion. Neck supple. Cardiovascular: Normal rate. Pulmonary/Chest: Effort normal and breath sounds normal. Abdominal: Soft. NT,active BS Musculoskeletal: Normal range of motion. Neurological: Alert, oriented. Skin: Skin is warm. Nursing note and vitals reviewed. MEDICATIONS Current Facility-Administered Medications: ??? acetaminophen (TYLENOL) tablet 650 mg, 650 mg, oral, Q6H PRN, Eleonora Duarte NP, 650 mg at 05/21/21 1545 ? ? al & mag hydroxide fqixsxllaju-sxqwguxnblresmn-bgfjawcxk-nystatin (MAGIC MOUTHWASH) suspension 1-1-1-1, 20 mL, swish & spit, Q4H PRN, Elena Kelly NP ??? albuterol 2.5 mg /3 mL (0.083 %) nebulizer solution 2.5 mg, 2.5 mg, nebulization, Q4H PRN (RT),Ralf Tomlinson MD, 2.5 mg at 05/17/21 0224 ??? albuterol HFA (PROVENTIL HFA,VENTOLIN HFA,PROAIR HFA) 90 mcg/actuation inhaler 8 puff, 8 puff, inhalation, Q4H While awake (RT), Ralf Tomlinson MD, 8 puff at 05/23/21 1415 ??? aspirin enteric coated tablet 81 mg, 81 mg, oral, Daily, Varsha Crowder NP, 81 mg at 05/23/21851 ??? atorvastatin (LIPITOR) tablet 80 mg, 80 mg, oral, Nightly, Rhina Granados MD, 80 mg at 05/22/212019 ??? dapagliflozin (FARXIGA) tablet 10 mg, 10 mg, oral, Daily, Stephen Melgar MD, 10 mg at ??? dexAMETHasone (DECADRON) 4 mg/mL injection 6 mg, 6 mg, intravenous, Daily, Silviano Huddleston NP, 6 mg at 12/04/21 0852 ??? dextrose oral liquid liquid 15 g, 15 g, oral, Q15 Min PRN OR dextrose (D10W) 10% bolus 250 mL, 250 mL, intravenous, Q15 Min PRN, Silviano Huddleston NP ??? dextrose oral liquid liquid 15 g, 15 g, oral, Q15 Min PRN OR [DISCONTINUED] dextrose (D10W)10% bolus 250 mL, 250 mL, intravenous, Q15 Min PRN, Anibal Lara MD ??? docusate sodium (COLACE) capsule 100 mg, 100 mg, oral, BID, 100 mg at 05/22/212020 OR [DISCONTINUED] docusate (COLACE) 10 mg/mL oral liquid 100 mg, 100 mg, feeding tube, BID, Rhina Granados MD, 100 mg at 05/05/21 0842 ??? enoxaparin (LOVENOX) syringe 40 mg, 40 mg, subcutaneous, Daily-2100, Rhina Granados MD, 40 mg at 05/22/212019 ??? glucagon injection 1 mg, 1 mg, intramuscular, Q30 Min PRN, Anibal Lara MD ??? glucagon injection 1 mg, 1 mg, intramuscular, Q30 Min PRN, Silviano Huddleston NP ??? guaiFENesin (ROBITUSSIN) 20 mg/mL oral liquid 200 mg, 200 mg, oral, QID PRN, Caleb Toth PA, 200 mg at 05/21/21 0810 ??? insulin lispro (HumaLOG, ADMELOG) 100 unit/mL injection 0-10 Units, 0-10 Units, subcutaneous, TID with meals, Silviano Huddleston NP, 6 Units at 05/23/21 1451 ??? insulin lispro (HumaLOG, ADMELOG) 100 unit/mL injection 0-5 Units, 0-5 Units, subcutaneous, Nightly, Silviano Huddleston NP ??? insulin lispro (HumaLOG, ADMELOG) 100 unit/mL injection 7 Units, 0.083 Units/kg, subcutaneous, TID with meals, Silviano Huddleston NP ??? insulin NPH (HumuLIN N, NovoLIN N) 100 unit/mL injection 8 Units, 8 Units, subcutaneous, Q6H LEAH, Silviano Huddleston NP, 8 Units at 05/23/21 1452 ??? ivabradine (CORLANOR) tablet 5 mg, 5 mg, oral, BID with meals (bkfst, dinner), Stephen Melgar MD ??? midodrine (PROAMATINE) tablet 15 mg, 15 mg, oral, TID, Silviano Huddleston NP, 15 mg at 05/23/21 1438 ??? ondansetron (ZOFRAN) injection 4 mg, 4 mg, intravenous, Q6H PRN, Rhina Granados MD ??? pantoprazole DR (PROTONIX) extended release tablet 40 mg, 40 mg, oral, Daily, Rhina Granados MD, 40 mg at 05/23/21 0852 ??? polyethylene glycol (MIRALAX) packet 17 g, 17 g, oral, Daily PRN, Rhina Granados MD ??? QUEtiapine (SEROquel) tablet 50 mg, 50 mg, oral, Nightly, Silviano Huddleston NP, 50 mg at 05/22/21 2020 ??? remdesivir (VEKLURY) 100 mg in sodium chloride 0.9% 250 mL IVPB, 100 mg, intravenous, Q24H, Elena Kelly, ESCROW CLERK, Last Rate: 270 mL/hr at 05/22/21 2311, 100 mg at 05/22/21 2311 ??? sodium chloride 0.9% flush 0.5-20 mL, 0.5-20 mL, intra-catheter, Q8H LEAH, Rhina Granados MD, 10 mL at 05/23/21 1438 ??? sodium phosphate - potassium phosphate (K-PHOS NEUTRAL) tablet 250 mg, 250 mg, oral, TID with meals, Silviano Huddleston NP, 250 mg at 05/23/21 1152 ??? spironolactone (ALDACTONE) tablet 25 mg, 25 mg, oral, Daily, Stephen Melgar MD, 25 mg at 05/23/21 1439 ??? tamsulosin (FLOMAX) extended release capsule 0.4 mg, 0.4 mg, oral, Daily with dinner, Elena Kelly NP, 0.4 mg at 05/22/21 1708 Lab/Radiology/Diagnostic Review: Recent Results (from the past 24 hour(s)) POCT glucose Collection Time: 05/22/21 5:56 PM Result Value Ref Range Glucose, POC 157 70 - 199 mg/dL POCT glucose Collection Time: 05/22/21 8:18 PM Result Value Ref Range Glucose, POC 184 70 - 199 mg/dL POCT glucose Collection Time: 05/22/21 9:21 PM Result Value Ref Range Glucose, POC 160 70 - 199 mg/dL POCT glucose Collection Time: 05/22/21 10:04 PM Result Value Ref Range Glucose, POC 124 70 - 199 mg/dL POCT glucose Collection Time: 05/22/21 11:06 PM Result Value Ref Range Glucose, POC 125 70 - 199 mg/dL POCT glucose Collection Time: 05/22/21 11:59 PM Result Value Ref Range Glucose, POC 105 70 - 199 mg/dL POCT glucose Collection Time: 05/23/21 1:10 AM Result Value Ref Range Glucose, POC 134 70 - 199 mg/dL POCT glucose Collection Time: 05/23/21 2:05 AM Result Value Ref Range Glucose, POC 155 70 - 199 mg/dL Phosphorus Collection Time: 05/23/21 3:18 AM Result Value Ref Range Phosphorus, pl 3.0 2.3 - 4.5 mg/dL Magnesium Collection Time: 05/23/21 3:18 AM Result Value Ref Range Magnesium 1.7 1.4 - 2.5 mg/dL CBC without differential Collection Time: 05/23/21 3:18 AM Result Value Ref Range WBC 10.0 (H) 3.8 - 9.9 K/cumm Hgb 9.0 (L) 13.0 - 17.5 g/dL Hct 27.8 (L) 38.9 - 50.3 % Plt 408 (H) 150 - 400 K/cumm MPV 11.4 9.1 - 12.3 fL RBC 3.06 (L) 4.30 - 5.80 M/cumm MCV 90.8 81.3 - 96.4 fL MCH 29.4 27.1 - 33.3 pg MCHC 32.4 32.3 - 35.7 g/dL RDW CV 13.3 11.1 - 14.9 % RDW SD 44.3 35.7 - 48.1 fL NRBC abs 0.00 0.00 - 0.01 K/cumm Basic metabolic panel Collection Time: 05/23/21 3:18 AM Result Value Ref Range Sodium 132 (L) 135 - 145 mmol/L Potassium, pl 3.5 3.3 - 4.9 mmol/L Chloride 95 (L) 97 - 110 mmol/L CO2 23 22 - 32 mmol/L Anion gap 14 2 - 15 mmol/L BUN 21 8 - 25 mg/dL Creatinine 0.48 (L) 0.80 - 1.30 mg/dL Glucose 141 70 - 199 mg/dL Calcium 8.4 (L) 8.5 - 10.3 mg/dL POCT glucose Collection Time: 05/23/21 3:18 AM Result Value Ref Range Glucose, POC 137 70 - 199 mg/dL eGFR Collection Time: 05/23/21 3:18 AM Result Value Ref Range eGFR 121 mL/min/1.73 m2 POCT glucose Collection Time: 05/23/21 4:02 AM Result Value Ref Range Glucose, POC 140 70 - 199 mg/dL POCT glucose Collection Time: 05/23/21 4:58 AM Result Value Ref Range Glucose, POC 130 70 - 199 mg/dL POCT glucose Collection Time: 05/23/21 6:09 AM Result Value Ref Range Glucose, POC 144 70 - 199 mg/dL POCT glucose Collection Time: 05/23/21 7:12 AM Result Value Ref Range Glucose, POC 144 70 - 199 mg/dL POCT glucose Collection Time: 05/23/21 9:26 AM Result Value Ref Range Glucose, POC 114 70 - 199 mg/dL POCT glucose Collection Time: 05/23/21 10:37 AM Result Value Ref Range Glucose, POC 109 70 - 199 mg/dL POCT glucose Collection Time: 05/23/21 11:56 AM Result Value Ref Range Glucose, POC 129 70 - 199 mg/dL POCT glucose Collection Time: 05/23/21 1:12 PM Result Value Ref Range Glucose, POC 239 (H) 70 - 199 mg/dL POCT glucose Collection Time: 05/23/21 2:43 PM Result Value Ref Range Glucose, POC 276 (H) 70 - 199 mg/dL XR Chest 1 View - Portable - in AM Result Date: 05/11/2021 Narrative: EXAMINATION: XR CHEST 1 VIEW HISTORY: The patient is a 60-year-old male who has had cardiac surgery. Comparison made with the previous study dated 05/10/2021. TECHNIQUE: AP portable view of the chest. FINDINGS: Lungs clear. Heart not enlarged. Aortic atherosclerosis. No failure. The right IJ [place] catheter has been retracted with its tip in the distal superior vena cava. Impression: IMPRESSION: No failure. Electronically signed by: Elvira Blackman M.D. XR Chest 1 View - Portable - in AM Result Date: 05/10/2021 Narrative: EXAMINATION: XR CHEST 1 VIEW DATE: 05/10/2021 2:40 AM COMPARISON: 05/09/2021 HISTORY: 60-year-old man cardiac surgery follow-up FINDINGS:Compared with study the previous day, significant improvement. There is cardiomegaly with postsurgical changes with continued and decreasing failure. Bibasilar atelectasis with left pleural fluid decreasing. No pneumothorax. [place] catheter remainsin place Impression: Decreasing failure, atelectasis and left effusion. Electronically signed by: Deandre Lomeli M.D. XR Chest 1 View - Portable - in AM Result Date: 05/09/2021 Narrative: EXAMINATION: XR CHEST 1 VIEW DATE: 05/09/2021 4:10 AM HISTORY: 60-year-old man cardiac surgery follow-up FINDINGS:Compared with study the previous day, significant improvement. There is cardiomegaly with postsurgical changes with continued but decreasing failure. Bibasilar atelectasis with left pleural fluid decreasing. No pneumothorax. [place] catheter remains in place Impression: Decreasing failure, atelectasis and left effusion. Electronically signed by: Deandre Lomeli M.D. XR Chest 1 View - Portable - in AM Result Date: 05/08/2021 Narrative: EXAMINATION: XR CHEST 1 VIEW DATE: 05/08/2021 4:15 AM HISTORY: 60-year-old man cardiac surgery follow-up FINDINGS:Compared with study the previous day, significant improvement. There is cardiomegaly with postsurgical changes with continued but decreasing failure. Bibasilar atelectasis with left pleural fluid. No pneumothorax. [place] catheter remains in place Impression: Decreasing failure. No pneumothorax. Electronically signed by: Deacon Cummings M.D. XR Chest 1 View - Portable - in AM Result Date: 05/07/2021 Narrative: EXAMINATION: XR CHEST 1 VIEW DATE: 05/07/2021 3:55 AM HISTORY: 60-year-old man follow-upcardiac surgery FINDINGS:Compared with study of the previous day, postsurgical changes in the heartand mediastinum with cardiomegaly are stable. [place] catheter remains in place. Left thoracostomy tube remains in place. No pneumothorax. Pulmonary vascular congestion with interstitial lung disease remain prominent. Impression: Persistent prominent interstitial lung disease with failure. Electronically signed by: Deacon Cummings M.D. XR Chest 1 View - Portable - in AM Result Date: 05/06/2021 Narrative: EXAMINATION: XR CHEST 1 VIEW DATE: 05/06/2021 4:05 AM INDICATION: Cardiac surgery. COMPARISON: 05/05/2021. FINDINGS: No pneumothorax or pleural effusion. Similar-appearing pulmonary vascular congestion and interstitial opacities most notable in the bilateral upper lobes consistent with pulmonary edema. Pulmonary catheter catheter, left thoracostomy tube, and mediastinal drain are appropriately position. Intra-aortic balloon pump is appropriately positioned. Interval removal of endotracheal tube. Impression: 1. Interval removal of endotracheal tube. Remaining tubes and lines are appropriately positioned. 2. Similar-appearing cardiomegaly, pulmonary vascular congestion, and prominent bilateralinterstitial markings suggestive of interstitial pulmonary edema. Electronically signed by: Richard Zhao II, D.O. XR Chest 1 View - Portable - in AM Result Date: 05/05/2021 Narrative: EXAMINATION: XR CHEST 1 VIEW DATE: 05/05/2021 4:15 AM HISTORY: 60-year-old man cardiac surgery follow-up FINDINGS:Compared with the study of the prior day, tubes and catheters remain satisfactorily positioned. Worsening pulmonary vascular congestive changes are seen. Cardiomegaly with postsurgical changes stable. No pneumothorax. Impression: Increasing failure. Electronically signed by: Deacon Cummings M.D. XR Chest 1 Vw Portable Result Date: 05/05/2021 Narrative: EXAMINATION: XR CHEST 1 VIEW DATE: 05/04/2021 8:40 PM HISTORY: 60-year-old man coronary artery bypass follow-up FINDINGS:Compared with the study of earlier the same day, postsurgical changes now evident within the heart and mediastinum with cardiomegaly. Interval placement of endotracheal tube, nasogastric tube, [place] catheter, left thoracostomy tube and mediastinal drain all in satisfactory position. No pneumothorax. Interstitial lung disease with mild pulmonary vascular congestive changes. Aortic balloon pump is no longer seen. Impression: Tube placements with postsurgical changes with cardiomegaly with interstitial lung disease and mild failure with no pneumothorax. Electronically signed by: Deacon Cummings M.D. XR Chest 1 Vw Portable Result Date: 05/04/2021 Narrative: EXAMINATION: XR CHEST 1 VIEW DATE: 05/04/2021 9:05 AM HISTORY: Coronary artery disease FINDINGS:Comparison is made with study of 2 days earlier. Cardiomegaly, COPD with interstitial lung disease stable. Mild failure. Aortic balloon pump stable in position at the proximal descending aorta. No pneumothorax. No new infiltrates. Impression: Stable appearance. COPD cardiomegaly, with mild failure suspected. Electronically signed by: Deacon Cummings M.D. XR Chest 1 Vw Portable Result Date: 05/02/2021 Narrative: EXAMINATION: XR CHEST 1 VIEW DATE: 05/02/2021 5:15 AM INDICATION: Intra-aortic balloon pump. COMPARISON: 05/01/2021. FINDINGS: Appropriately positioned intra-aortic balloon pump appears unchanged. No pneumothorax or pleural effusion. Mixed reticular and alveolar opacities demonstrated inall lung lobes appear most significant in the upper lobes and perihilar regions, unchanged. Impression: 1. Appropriately positioned intra-aortic balloon pump. 2. Similar mixed reticular and alveolar opacities most notable in the bilateral upper lobes and perihilar region. Electronically signed by: Richard Lopez II, D.O. XR Chest 1 Vw Portable Result Date: 05/02/2021 Narrative: EXAMINATION: XR CHEST 1 VIEW DATE: 05/01/2021 8:15 PM INDICATION: Hypoxia. COMPARISON: None. FINDINGS: No pneumothorax. No pleural effusion. Mixed reticular and alveolar opacities are demonstrated in all lung lobes but demonstrate an upper lobe and perihilar predominance. Findings may represent pulmonary edema on background of centrilobular emphysematous changes. Underlying infectious process not entirely excludable. Cardiac mediastinal silhouette is stable in appearance. No acute osseous abnormality. Impression: Mixed reticular and alveolar opacities are demonstrated in all lung lobes but demonstrate an upper lobe and perihilar predominance. Findings may represent pulmonary edema on background ofcentrilobular emphysematous changes. Electronically signed by: Richard Loepz II, D.O. Transthoracic Echo (TTE) Limited Result Date: 05/07/2021 Narrative: [place] [id number] Limited Echocardiogram Report Patient Name: DEEPAK ALVARADO : 1960 StudyDate: 05/07/2021 12:16:52 PM Gender: M Tech: Location: [place] [address] Ref.Provider: RHINA GRANADOS Height(Cm): 175 BSA: 2.1 Weight(Kg): 91 Heart Rate: 82 BP: 127/44 Quality: Good Order Provider: Dr. Sutton Procedures: Echocardiographic Report: Limited transthoracic echocardiogram with 2D and M-Mode. Measurements: 2D/M Mode Measurement Value Normal Range LVIDd 2D 3.43 [ 4.20 -5.90 ] cm LVIDs 2D 2.59 [ 2.30 - 3.90 ] cm LVPWd 2D 1.01 [ 0.60 - 1.00 ] cm IVSd 2D 0.71 [ 0.60 - 0.90 ] cm Findings: Left Ventricle: Reduced left ventricular cavity size. Mild global left ventricular systolic dysfunction. Ejection fraction is measured at 42 %. These segments of the LV are hypokinetic: apical anterior segment. Pericardium: Trivial pericardial effusion. No echocardiographic evidence to suggest pericardial tamponade. Conclusions: Reduced left ventricular cavity size. Mild global left ventricular systolic dysfunction. Ejection fraction is measured at 42 %. These segments of the LV are hypokinetic: apical anterior segment. Trivial pericardial effusion. No echocardiographic evidence to suggest pericardial tamponade. Electronically Signed By: Gianni Francois MD, [facility] :54:09 STAFF FORESTER Transthoracic Echo Complete W Doppler/CF Result Date: 05/02/2021 Narrative: [address] [address] Echocardiogram Report Patient Name: DEEPAK ALVARADO W : 1960 Study Date: 05/02/2021 8:50:02 AM Gender: M Tech: Location: [id number] Ref Provider: NALINI CLAYTONHeight(Cm): 175 BSA: 2.11 Weight(Kg): 92 Heart Rate: 89 BP: 102/52 Quality: Good Order Provider: NALINI CLAYTON PROCEDURES: Echocardiographic Report: Transthoracic echocardiogram with complete 2D, M-Mode, and color Doppler examination. INDICATIONS: Free Text. Measurements: 2D/M Mode DopplerMeasurement Value Normal Range Measurement Value Normal Range EF Teich 2D 30.0 [ 55.0 - 70.0 ] percent CHRISTINA Vmax 2.04 [ 2.00 - 4.00 ] cm2 EF Mod 4C 42.2 [ 55.0 - 70.0 ] percent AV Mean PG 5 [ 2 - 4 ]mmHg LVIDd 2D 4.54 [ 4.20 - 5.90 ] cm AV Peak Ramesh 1.54 [ 1.00 - 1.70 ] m/s LVIDs 2D 3.91 [ 2.30 - 3.90 ] cm AV VTI 26.93 cm LVPWd 2D 0.92 [ 0.60 - 1.00 ] cm LVOT Diam 2.20 [ 1.70 - 2.10 ] cm IVSd 2D 0.76 [ 0.60 - 0.90 ] cm LVOT Peak Ramesh 0.83 [ 0.70 - 1.10 ] m/s LA Dimension MM 5.08 [ 3.00 - 4.00 ]cm LVOT VTI 13.82 [ 20.00 - 30.00 ] cm AoR Diam MM 4.12 [ 2.60 - 3.70 ] cm MV E Peak Ramesh 0.85 [ 0.60 - 1.30 ] m/s LA Volume Index 20.83 [ 16.00 - 28.00 ] cc/m2 MV A Peak Ramesh 1.14 [ 1.00 - 1.20 ] m/s ACS MM 1.91 [ 1.50 - 2.60 ] cm MV Mean PG 1 [ <= 5 ] mmHg MV PHT 43 [ 20 - 100 ] msec MVA 2.20 MV Decel Time 137 [ 104 - 258 ] msec PV Peak Ramesh 1.10 [ 0.40 - 0.80 ] m/s TR Peak Ramesh 1.32 [ 1.00 - 2.80 ] m/s TR Peak PG 7 mmHg RVSP 16.93 [ 10.00 - 36.00 ] mmHg E' 0.06 E/E' 14.00 Measurement Value Normal Range Measurement Value Normal Range 2D/M Mode Doppler - FINDINGS: Atrial Septum: Normal atrial septum. Left Ventricle: Normal left ventricular size. Left ventricle not well visualized. There is severe hypokinesis of the mid anteroseptal, anterior, and apical [place]illa. Normal left ventricularwall thickness. Impaired diastolic relaxation Grade I. Ejection fraction is visually estimated at 40 %. Left Atrium: The left atrium is normal in size. Right Ventricle: Normal right ventricular size.Normal right ventricular systolic function. Right Atrium: The right atrium is normal in size. Aortic Valve: Normal structure of the aortic valve. No evidence of hemodynamically significant aortic stenosis by Doppler. No aortic regurgitation. Mitral Valve: Normal structure of the mitral valve. Trivial regurgitation of the mitral valve. Pulmonic Valve: Pulmonic valve not well visualized. Trivial reg urgitation in the pulmonic valve. Tricuspid Valve: Normal structure of the tricuspid valve. Trivialregurgitation in the tricuspid valve. Pericardium: Normal pericardium with no significant pericardial effusion. Aorta: Normal aortic root. IVC: Normal size and normal respiratory collapse consistent with normal right atrial pressure (<5 mmHg). CONCLUSIONS: Technically difficult study with limited views. Normal left ventricular size. Left ventricle not well visualized. There is severe hypokinesis of the mid anteroseptal, anterior, and apical mancilla. Normal left ventricular wall thickness. Impaired diastolic relaxation Grade I. Ejection fraction is visually estimated at 40 %. Normal right ventricular size. Normal right ventricular systolic function. Normal structure of the mitral valve. Trivial regurgitation of the mitral valve. Normal structure of the tricuspid valve. Trivial regurgitation in the tricuspid valve. Electronically Signed By: Rylee Brito DO, FACJustyna, [place], [facility] 2021-05-02 14:07:25 STAFF FORESTER CC: CC: CC: ASSESSMENT/PLAN Hyponatremia from SIADH and possibly from zaroxylyn use. Work up for hyponatremia ongoing. PO FR. No normotonic fluids yet. Urine lytes and osm. If in clinical fluid overload, can use tolvaptan. Renal fn is better. Na better with loop diuresis, use PRN. Daily BMP. Na 132 and acceptable. ?? Recent bladder tumor removal with hematuria. ?? -??Urology is following.H/H stable -Cysto vs conservative tx. -Voiding trial, hematuria has stopped. -Epistaxis Use nasal pillows. -CHF with decompensation Continue diuresis. RHC not done. Agree with Corlanor. ?? Hypokalemia from diuresis. Replace PRN. ?? 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 COVID positive. Per protocol. On Remdisivir and Dex. ?? Syncopal episode -(+) orthostasis -receiving albumin -IV lasix was discontinued. ??There is a 1x order for zaroxolyn 10mg this am- recommend holding fornow. ??D/w RN ?? Coronary artery disease -s/p CABG post STEMI -??underwent four-vessel bypass ??MAE to the LAD, sequential saphenous vein graft to diagonal and obtuse marginal and a vein graft to the PDA. -s/p??low dose dobutamine -paced rhythm -??IV??diuretics??discontinued d/t syncopal episode today (see above) ?? Moderate LV dysfunction -s/p IV??lasix??and??low dose??dobutamine -Beta blockers, ??[place] once off dobutamine-would hold off adding given syncopal episode this am -repeat ECHO 05/07 EF 42% (see above) ?Nonsustained ventricular tachycardia -no recurrence of VT -K 3.7, Mg??2.0. ??Supplement to keep K >/= 4.0, Mg >/= 2.0 ?Diabetes mellitus -?on lantus and SSI ?? COPD: ?? -on?O2 NC??4L (dried blood to L nare humidified o2 ordered) ?? Dyslipidemia -?Continue atorvastatin. ?PAD -?Stable ? Anemia -Hb??11.4 (10.5)??(8.6) -monitor ?? I can be reached at [phone] with any concerns. Thank you Rhina Granados MD for the consult. Yves Weinberg MD [employer] [phone] F FORESTER * Silviano Huddleston NP - 05/23/2021 1:42 PM CST Images from the original note were not included. Critical Care Medicine Daily Progress Team: Community AM Subjective Patient is a 60 y.o. y/o male admitted on 05/01/2021 5:20 PM with the following indication(s) for ICU care COVID PNA. Interval History: -insulin gtt -add end date to dexamethasone -updated -midodrine spaced out to reduce administration over night -talked to dietary to withhold supplements with high carbs and sugars -lasix 40mg x1 per CTS, pBNP 2233 HPI (05/17) 60M smoker hx copd, obesity, pvd, htn, hld, dm2 & CAD s/p multiple LAD stents who p/w anterior STEMI after bladder procedure on 04/29. [facility] where they found in-stent thrombosis and an angioplasty was performed but stent could not be placed. A balloon pump was placed and the patient was transferred to the CVU. CT-surgery was consulted for CABG. The patie nt underwent a 4 vessel cabg on 05/04 w/ Dr. Granados (MAE->LAD, Saph vein->diag & obtuse, Saph->PDA). He developed rebleeding from his bladder tumor and this was adressed by urology. Heself extubated the next day after his CABG. His osorio was removed yesterday and he is currently post op day 11 from the CABG. He has been getting diuresed on the floor but has unfortunately had increasing oxygen requirement for the last 24 hours despite diuresis. He is currently on a non-rebreatherand being transferred to the ICU.? Hospital Course 04/29 Cystoscopy [facility] 04/30 STEMI, [facility] -> instent thrombosis, angioplasty, IABP, transfer to [facility] 05/04/21: Increased blood clot from osorio and obstruction with pain.?? 05/05/21: Brief asystole o/n w turning. Stable after. Self extubated in AM.?? 05/06/21: NAEON. Maintained on CPAP and optiflow.?? 05/07/21: NAEON. Up in chair at time of exam. TTF 05/10 near syncopal episode 05/14 cystoscopy with clot removal and fulguration of bleeding 05/17 readmit to ICU with pulmonary edema, lasix drip 05/18 Nasal cannula, on/off pressors, Negative VQ, ACTH Stim unremarkable 05/19 COVID positive, 15 L/NC, Remdesivir, dexamethasone 05/21 coude catheter placed, remains on optiflow, updated 05/22 increase seroquel, on optiflow 40L 75% 05/23 HF meds started, Lasix 40mg Scheduled Medications: albuterol HFA, 8 puff, inhalation, Q4H While awake (RT) aspirin, 81 mg, oral, Daily atorvastatin, 80 mg, oral, Nightly dapagliflozin, 10 mg, oral, Daily dexAMETHasone, 6 mg, intravenous, Daily docusate sodium, 100 mg, oral, BID enoxaparin, 40 mg, subcutaneous, Daily-2100 insulin lispro, 0-10 Units, subcutaneous, TID with meals insulin lispro, 0-5 Units, subcutaneous, Nightly insulin lispro, 0.083 Units/kg, subcutaneous, TID with meals insulin NPH, 10 Units, subcutaneous, Q6H LEAH ivabradine, 5 mg, oral, BID with meals (bkfst, dinner) midodrine, 15 mg, oral, TID pantoprazole DR, 40 mg, oral, Daily QUEtiapine, 50 mg, oral, Nightly remdesivir, 100 mg, intravenous, Q24H sodium chloride 0.9%, 0.5-20 mL, intra-catheter, Q8H LEAH sodium phosphate - potassium phosphate, 250 mg, oral, TID with meals spironolactone, 25 mg, oral, Daily tamsulosin, 0.4 mg, oral, Daily with dinner Continuous Medications: PRN Medications: ??? acetaminophen ? ? al & mag hydroxide nmmluukwhkn-addflwcckvutlsd-gsngdjaxs-nystatin ??? albuterol ??? dextrose OR dextrose ??? dextrose OR [DISCONTINUED] dextrose ??? glucagon ??? glucagon ??? guaiFENesin ??? ondansetron ??? polyethylene glycol Objective Vitals: Most Recent: Vitals: 05/23/21 1300 BP: 108/65 Pulse: 93 Resp: 27 Temp: SpO2: 24hr Min/Max: Temp Min: 36.4 ??C (97.5 ??F) Max: 36.8 ??C (98.2 ??F) Pulse Min: 71 Max: 108 BP Min: 84/52 Max: 126/98 Resp Min: 12 Max: 32 SpO2 Min: 92 % Max: 93 % LDA: PICC Double Lumen 05/18/21 Non-tunneled Power #1 Red, #2 Purple, Right Upper arm;Brachial (Active) Placement Date/Time: 05/18/21 1200 Catheter Time Out Checklist Completed: Yes Hand Hygiene Performed: Yes Site Prep: Alcohol;Betadine;Chlorhexidine Site Prep Agent has Completely Dried Before Insertion: Yes All 5 Sterile Barriers or Appropriate ... Number of days: 2 Vent settings: FiO2 (%): [60 %-85 %] 60 % Hemodynamic parameters for last 24 hours: I/O: Date 05/22/21 0700 - 05/23/21 0659 05/23/21 0700 - 05/24/21 0659 Shift 0322-0540 9023-6249 24 Hour Total 4542-5011 1556-1662 24 Hour Total INTAKE P.O. 740 740 480 480 I.V.(mL/kg) 925(11.6) 925(11.6) Shift Total(mL/kg) 740(9.3) 925(11.6) 1665(20.9) 480(6) 480(6) OUTPUT Urine(mL/kg/hr) 1085(1.1) 850(0.9) 1935(1) 300 300 Shift Total(mL/kg) 1085(13.6) 850(10.7) 1935(24.3) 300(3.8) 300(3.8) NET -345 75 -270 180 180 Weight (kg) 79.5 79.5 79.5 79.5 79.5 79.5 Physical Exam: Neuro- A&Ox4, FC, PERRL, weak CV- NSR, normotensive Resp- Diminished to auscultation, on optiflow GI- soft, n/d, n/t Msk- warm, palpable pulses Drain- none Wound- sternotomy, R leg incision Lab/Radiology/Diagnostic Review: Laboratory review: Lab results in the last 24 hours: Recent Results (from the past 24 hour(s)) POCT glucose Collection Time: 05/22/21 2:35 PM Result Value Ref Range Glucose, POC 153 70 - 199 mg/dL POCT glucose Collection Time: 05/22/21 3:47 PM Result Value Ref Range Glucose, POC 140 70 - 199 mg/dL POCT glucose Collection Time: 05/22/21 4:55 PM Result Value Ref Range Glucose, POC 160 70 - 199 mg/dL POCT glucose Collection Time: 05/22/21 5:56 PM Result Value Ref Range Glucose, POC 157 70 - 199 mg/dL POCT glucose Collection Time: 05/22/21 8:18 PM Result Value Ref Range Glucose, POC 184 70 - 199 mg/dL POCT glucose Collection Time: 05/22/21 9:21 PM Result Value Ref Range Glucose, POC 160 70 - 199 mg/dL POCT glucose Collection Time: 05/22/21 10:04 PM Result Value Ref Range Glucose, POC 124 70 - 199 mg/dL POCT glucose Collection Time: 05/22/21 11:06 PM Result Value Ref Range Glucose, POC 125 70 - 199 mg/dL POCT glucose Collection Time: 05/22/21 11:59 PM Result Value Ref Range Glucose, POC 105 70 - 199 mg/dL POCT glucose Collection Time: 05/23/21 1:10 AM Result Value Ref Range Glucose, POC 134 70 - 199 mg/dL POCT glucose Collection Time: 05/23/21 2:05 AM Result Value Ref Range Glucose, POC 155 70 - 199 mg/dL Phosphorus Collection Time: 05/23/21 3:18 AM Result Value Ref Range Phosphorus, pl 3.0 2.3 - 4.5 mg/dL Magnesium Collection Time: 05/23/21 3:18 AM Result Value Ref Range Magnesium 1.7 1.4 - 2.5 mg/dL CBC without differential Collection Time: 05/23/21 3:18 AM Result Value Ref Range WBC 10.0 (H) 3.8 - 9.9 K/cumm Hgb 9.0 (L) 13.0 - 17.5 g/dL Hct 27.8 (L) 38.9 - 50.3 % Plt 408 (H) 150 - 400 K/cumm MPV 11.4 9.1 - 12.3 fL RBC 3.06 (L) 4.30 - 5.80 M/cumm MCV 90.8 81.3 - 96.4 fL MCH 29.4 27.1 - 33.3 pg MCHC 32.4 32.3 - 35.7 g/dL RDW CV 13.3 11.1 - 14.9 % RDW SD 44.3 35.7 - 48.1 fL NRBC abs 0.00 0.00 - 0.01 K/cumm Basic metabolic panel Collection Time: 05/23/21 3:18 AM Result Value Ref Range Sodium 132 (L) 135 - 145 mmol/L Potassium, pl 3.5 3.3 - 4.9 mmol/L Chloride 95 (L) 97 - 110 mmol/L CO2 23 22 - 32 mmol/L Anion gap 14 2 - 15 mmol/L BUN 21 8 - 25 mg/dL Creatinine 0.48 (L) 0.80 - 1.30 mg/dL Glucose 141 70 - 199 mg/dL Calcium 8.4 (L) 8.5 - 10.3 mg/dL POCT glucose Collection Time: 05/23/21 3:18 AM Result Value Ref Range Glucose, POC 137 70 - 199 mg/dL eGFR Collection Time: 05/23/21 3:18 AM Result Value Ref Range eGFR 121 mL/min/1.73 m2 POCT glucose Collection Time: 05/23/21 4:02 AM Result Value Ref Range Glucose, POC 140 70 - 199 mg/dL POCT glucose Collection Time: 05/23/21 4:58 AM Result Value Ref Range Glucose, POC 130 70 - 199 mg/dL POCT glucose Collection Time: 05/23/21 6:09 AM Result Value Ref Range Glucose, POC 144 70 - 199 mg/dL POCT glucose Collection Time: 05/23/21 7:12 AM Result Value Ref Range Glucose, POC 144 70 - 199 mg/dL POCT glucose Collection Time: 05/23/21 9:26 AM Result Value Ref Range Glucose, POC 114 70 - 199 mg/dL POCT glucose Collection Time: 05/23/21 10:37 AM Result Value Ref Range Glucose, POC 109 70 - 199 mg/dL POCT glucose Collection Time: 05/23/21 11:56 AM Result Value Ref Range Glucose, POC 129 70 - 199 mg/dL POCT glucose Collection Time: 05/23/21 1:12 PM Result Value Ref Range Glucose, POC 239 (H) 70 - 199 mg/dL CT Chest WO Contrast Result Date: 05/19/2021 1. STATUS POST MEDIAN STERNOTOMY. 2. RIGHT-SIDED PICC CATHETER IN PLACE. 3. CORONARY ARTERY DISEASE. 4. MODERATE EMPHYSEMATOUS CHANGES IN THE LUNGS. 5. PATCHY ALVEOLAR INFILTRATE IN BOTH LUNGS. THIS CAN BE SEEN WITH A VIRAL-TYPE PNEUMONITIS. Electronically signed by: Humphrey Mojica M.D. XR Chest 1 View Result Date: 05/19/2021 Persistent ill-defined patchy left perihilar upper and lower lobe alveolar infiltrate and mild on the right. Electronically signed by: Joie Bernardo M.D. Plan: Neuro: #Acute pain - Tylenol ?? #Insomnia - Seroquel 50 mg CV: #Severe multivessel CAD s/p CABG #STEMI #HFrEF, chronic - S/p CABG by MD Granados - CCL (04/30) -> in-stent restenosis, unsuccessful angioplasty, IABP placed - ASA/Atorvastatin, holding plavix - Unable to tolerate ACEi or BB at this time, HF meds started today -Lasix 40mg per cards - Cardiology following - CTS following - TTE (05/17) -> EF 35-40% ?? Pulmonary: #Acute hypoxic respiratory failure 2/2 #COVID 19 pneumonia - Increasing O2 overnight -> up to 15L/NC, NPPV as needed - V/Q (05/18) -> low probability for PE - CT Chest (05/19) -> c/f viral pneumonia - COVID 19 positive (05/19) - Dexamethasone day 09/27 - Remdesivir end today - Aggressive pulmonary hygiene, IS, OOBTC in am - Maintain sats> 92% -optiflow 40L , 75% - Sniff test pending ?? GI: Diet: Heart healthy PUD PPx: Pantoprazole Bowel regimen: Docusate ?? Endo: #Hyperglycemia, likely 2/2 stress response - Insulin gtt d/c, 24 hour insulin requirement 70 units 80% of this is 56 units. Started on NPH 10 units q6h and High resistant SSI. AIC > 13.0 on admission - Frequent accuchecks - Endocrine following ?? Renal: #ISRRAEL - BUN/Cr 21/0.48 - FBG euvolemic, heavily diuresis previous days - trend renal function, avoid nephrotoxins, renal dose medications - optimize electrolytes with caution to renal function ?-goal K ~4, Mg >??2.2, phos >??3, iCAL >??4.5 ?-provide supplement as needed ?-AM BMP and electrolytes check ?? #Hematuria 07/22 #Bladder tumor - (05/14) Cystoscopy for clot evacuation and cessation of bleeding sites - 05/21 Coud?? placed - Urology following - Flomax ?? Heme: #ABLA 07/22 surgery - No active signs of bleeding - Transfuse for hgb < 8 - CBC in am, current hgb 9.0 ?? DVT PPX: SCD's/Lovenox ?? ID: #COVID 19 pneumonia - WBC: 10.0 - Tmax: 36.4 - Remdesivir ends today - Dexamethasone - CBC in am - Trend WBC and fever curve ICU standards of care: Physical therapy/Activity: OOBTC Access: PICC Goals of care: Full code Community AM Assessment and plan has been reviewed with attending, Dr. Jaja Huddleston NP Cosigned by Dominique Wilkinson MD at 05/25/2021 7:57 AM STAFF FORESTER F FORESTER F FORESTER Associated attestation - Dominique Wilkinson MD - 05/25/2021 7:57 AM STAFF FORESTER I have seen and examined the patient on 05/23/21. I agree with or have edited the findings and plan of care as documented in the [facility] note. G: Elderly gentleman, mildly ill appearing N: Awake, alert, conversant CV: tachycardic but regular, no JVD Resp: Coarse lungs. On Optiflow GI: Abd soft, nontender, nondistended : Voids MSK: mild LE ext edema Int: no rashes Dominique Wilkinson MD Section of Acute and Critical Care Surgery Department of Surgery [facility] [employer] * Anibal Lara MD - 05/23/2021 1:19 PM CST Hospitalist Progress Note Name: Deepak Alvarado Admission Date: 05/01/2021 Today's Date: 05/23/2021 Subjective: Pt seen and examined Clinical course: Overall pt condition has improved. Still on 4L per NC today 05/16: feels ok today, on 5L per NC 05/17: transferred to ICU for worsening respiratory distress requiring more O2 05/20: remains in the ICU, on Optiflow today 05/21: about the same today, Optiflow 05/22: still on Optiflow, back on Insulin gtt 05/23: no major changes , still on Optiflow Objective: Vitals: 05/23/21 1045 05/23/21 1100 05/23/21 1115 05/23/21 1130 BP: 108/66 101/67 97/71 98/68 BP Location: Patient Position: Pulse: 106 84 86 87 Resp: 12 26 25 17 Temp: TempSrc: SpO2: Weight: Height: Wt Readings from Last 3 Encounters: 05/23/21 79.5 kg (175 lb 4.3 oz) 08/27/13 114.3 kg (252 lb) 10/19/12 111.6 kg (246 lb) I/O last 3 completed shifts: In: 2165 [P.O.:1240; I.V.:925] Out: 2835 [Urine:2835] I/O this shift: In: 240 [P.O.:240] Out: 205 [Urine:205] Scheduled Meds Current Facility-Administered Medications Medication Dose Route Frequency Provider Last Rate Last Admin ??? acetaminophen (TYLENOL) tablet 650 mg 650 mg oral Q6H PRN Eleonora Duarte NP 650 mg at 05/21/21 1545 ? ? al & mag hydroxide kbekiptcfio-mixracjhlhmqeye-raykdgbyq-nystatin (MAGIC MOUTHWASH) suspension 1-1-1-1 20 mL swish & spit Q4H PRN Elena Kelly NP ??? albuterol 2.5 mg /3 mL (0.083 %) nebulizer solution 2.5 mg 2.5 mg nebulization Q4H PRN (RT) Ralf Tomlinson MD 2.5 mg at 05/17/21 0224 ??? albuterol HFA (PROVENTIL HFA,VENTOLIN HFA,PROAIR HFA) 90 mcg/actuation inhaler 8 puff 8 puff inhalation Q4H While awake (RT) Rafl Tomlinson MD 8 puff at 05/23/21 0805 ??? aspirin enteric coated tablet 81 mg 81 mg oral Daily Varsha Crowder NP 81 mg at 05/23/21 08 ??? atorvastatin (LIPITOR) tablet 80 mg 80 mg oral Nightly Rhina Granados MD 80 mg at 05/22/212019 ??? dapagliflozin (FARXIGA) tablet 10 mg 10 mg oral Daily Stephen Melgar MD ??? dexAMETHasone (DECADRON) 4 mg/mL injection 6 mg 6 mg intravenous Daily Silviano Huddleston NP 6 mg at 05/23/21 0852 ??? dextrose (D10W) 10% bolus 1-500 mL 1-500 mL intravenous PRN Silviano Huddleston NP ??? dextrose oral liquid liquid 15 g 15 g oral Q15 Min PRN Anibal Lara MD ??? docusate sodium (COLACE) capsule 100 mg 100 mg oral BID Rhina Granados MD 100 mg at 05/22/212020 ??? enoxaparin (LOVENOX) syringe 40 mg 40 mg subcutaneous Daily-2100 Rhina Granados MD 40 mg at107/23/202019 ??? glucagon injection 1 mg 1 mg intramuscular Q30 Min PRN Anibal Lara MD ??? guaiFENesin (ROBITUSSIN) 20 mg/mL oral liquid 200 mg 200 mg oral QID PRN Caleb Toth PA 200 mg at 05/21/21 0810 ??? insulin regular bolus from bag 1-10 Units 1-10 Units intravenous PRN Silviano Huddleston NP ??? insulin regular in 0.9% sodium chloride 100 units/100 mL infusion (premix) 0-30 Units/hr intravenous Titrated Silviano Huddleston NP Stopped at 05/23/21 1043 ??? ivabradine (CORLANOR) tablet 5 mg 5 mg oral BID with meals (bkfst, dinner) Stephen Melgar MD ??? midodrine (PROAMATINE) tablet 15 mg 15 mg oral TID Silviano Huddleston NP 15 mg at 05/23/21 0851 ??? ondansetron (ZOFRAN) injection 4 mg 4 mg intravenous Q6H PRN Rhina Granados MD ??? pantoprazole DR (PROTONIX) extended release tablet 40 mg 40 mg oral Daily Rhina Granados MD40 mg at 05/23/21 0852 ??? polyethylene glycol (MIRALAX) packet 17 g 17 g oral Daily PRN Rhina Granados MD ??? QUEtiapine (SEROquel) tablet 50 mg 50 mg oral Nightly Silviano Huddleston NP 50 mg at 0 ??? remdesivir (VEKLURY) 100 mg in sodium chloride 0.9% 250 mL IVPB 100 mg intravenous Q24H Elena Kelly NP 270 mL/hr at 05/22/21 2311 100 mg at 05/22/21 2311 ??? sodium chloride 0.9% flush 0.5-20 mL 0.5-20 mL intra-catheter Q8H LEAH Rhina Granados MD 10 mL at 05/23/21 0549 ??? sodium phosphate - potassium phosphate (K-PHOS NEUTRAL) tablet 250 mg 250 mg oral TID with meals Silviano Huddleston NP 250 mg at 05/23/21 1152 ??? spironolactone (ALDACTONE) tablet 25 mg 25 mg oral Daily Stephen Melgar MD ??? tamsulosin (FLOMAX) extended release capsule 0.4 mg 0.4 mg oral Daily with dinner Elena Kelly NP 0.4 mg at 05/22/21 1708 insulin regular, 0-30 Units/hr, Last Rate: Stopped (12/04/21 1043) ??? acetaminophen ? ? al & mag hydroxide lvwfrcxazet-dviisukskqrarzg-pegkbsynn-nystatin ??? albuterol ??? dextrose ??? dextrose OR [DISCONTINUED] dextrose ??? glucagon ??? guaiFENesin ??? insulin regular ??? ondansetron ??? polyethylene glycol Physical Exam: General: alert, cooperative, no distress, appears stated age HEENT: Head:normacephalic, Eyes: Perrla, EOMI bilaterally, nasal and oral mucosal pink and moist Heart: normal rate, regular rhythm, normal S1, S2, no murmurs, rubs, clicks or gallops Lungs: clear to auscultation, no wheezes or rales and unlabored breathing Abdomen: soft, nontender, nondistended, no masses or organomegaly Extremities: peripheral pulses normal, no pedal edema, no clubbing or cyanosis Neuro: alert, oriented x 3, no defects noted in general exam. Lab Data Laboratory review: Chemistry CMP: Lab Results Component Value Date BUNSER 21 05/23/2021 CALCIUM 8.4 (L) 05/23/2021 CO2 23 05/23/2021 CHLORIDE 95 (L) 05/23/2021 CREATININE 0.48 (L) 05/23/2021 GLUCOSE 239 (H) 05/23/2021 GLUCOSE 141 05/23/2021 POTASSIUM 3.5 05/23/2021 SODIUM 132 (L) 05/23/2021 , CBC: Lab Results Component Value Date WBC 10.0 (H) 05/23/2021 RBC 3.06 (L) 05/23/2021 HGB 9.0 (L) 05/23/2021 HCT 27.8 (L) 05/23/2021 MCV 90.8 05/23/2021 MCH 29.4 05/23/2021 MCHC 32.4 05/23/2021 RDWCV 13.3 05/23/2021 RDWSD 44.3 05/23/2021 MPV 11.4 05/23/2021 NRBCABS 0.00 05/23/2021 , Coags: No results found for: PT, PTT, APTT, FFN, FIBRINOGEN, INR, ACTIVATEDCL, Lipids: No resultsfound for: CHOL, CHLPL, HDL, LDLCALC, TRIG, CHOLHDL, Cardiac Enzymes: No results found for: CKTOTAL, CKMB, CKMBINDEX, TROPONINT and POC Glucose: Lab Results Component Value Date GLUCOSE 239 (H) 05/23/2021 GLUCOSE 141 05/23/2021 Home Medications have been reviewed and updated on pt's list Assessment and Plan Acute resp failure - self ext 05/05/21 -Lung infiltrates - pulm vascular congestion/CHF, and suspected pneumonia - completed Zosyn -COVID19 (+) 05/19 -started on Decadron and Remdesivir 05/19 -PRN IV Lasix -pt was on BiPAP last night, today on Optiflow -pulmonology follows -per cards added Farxiga, Aldactone, and Corlanor 05/23 Near syncope/Syncope episode, probable vaso vagal, monitor ?? Acute anterior STEMI with CAD , s/p PCI to LAD -s/p CABG x 4 05/04 given re thrombosis of existing stents -s/p IABP, removed 05/06 - ASA, ??statins, off Plavix due to hematuria, BBs on hold due to hypotension ?? Post CABG cardiogenic shock, hypotensive again - s/p??Dobutamine gtt and Levophed -now on Midodrine ?? Ventricular fibrillation - briefly on 05/03 - treated with Amiodarone and Dobutamine gtt, off them ?? Gross Hematuria ?- in a pt with hx of ??cystoscopy, -clot evacuation and transurethral resection of bladder tumor at [facility] -s/p 20??German three way catheter -holding Plavix -cysto 05/14 with clot evacuation and fulguration ? Type 2 diabetes.??- Back on Insulin gtt ?? Acute blood loss anemia ; -s/p PRBC transfusions in ICU - monitor HH, today 9.5 ?? Mild hyponatremia, monitor ?? Hx of ??Tobacco use. ?? DVT prophylaxis :Lovenox Pt will need continued inpatient management for the above medical issues. Code status: full Anibal Hughes MD [facility] Hospitalist 05/23/2021 1:19 PM F FORESTER * Stephen Melgar MD - 05/23/2021 11:59 AM CST Cardiology Daily Progress Chief complaint/reason for consult: Respiratory failure. Interval History: Patient is afebrile still significant hypoxemia currently on 85% FiO2 at 50 liters/minute. Remains on dexamethasone and remdesivir. COVID positive 05/19/21 Presenting History: 60 yo man w COPD, DM, CAD/stents admitted 05/01/21 with chest pain. Had recent hematuria as well. Workup revealed an acute MT. Cath showed multi-vessel CAD. Had balloon pump placed. CABG x 4 done on 05/04/21. He was continued on mechanical ventilation and self extubated this AM (05/05/21). He is on multiple pressors. Sedated with precedex. Some tachypnea. A balloon pump is in place. Current tobacco use. COPD listed as prior diagnosis. No inhalers on home med list. Allergies: Allergies Allergen Reactions ??? Metoclopramide Medications: Scheduled Meds:albuterol HFA, 8 puff, inhalation, Q4H While awake (RT) aspirin, 81 mg, oral, Daily atorvastatin, 80 mg, oral, Nightly dexAMETHasone, 6 mg, intravenous, Daily docusate sodium, 100 mg, oral, BID enoxaparin, 40 mg, subcutaneous, Daily-2100 midodrine, 15 mg, oral, TID pantoprazole DR, 40 mg, oral, Daily QUEtiapine, 50 mg, oral, Nightly remdesivir, 100 mg, intravenous, Q24H sodium chloride 0.9%, 0.5-20 mL, intra-catheter, Q8H LEAH sodium phosphate - potassium phosphate, 250 mg, oral, TID with meals tamsulosin, 0.4 mg, oral, Daily with dinner Continuous Infusions:insulin regular, 0-30 Units/hr, Last Rate: Stopped (05/23/21 1043) PRN Meds:.??? acetaminophen ? ? al & mag hydroxide rlzalyduiwq-lipssmjixqqjlqt-hfpbyojry-nystatin ??? albuterol ??? dextrose ??? dextrose OR [DISCONTINUED] dextrose ??? glucagon ??? guaiFENesin ??? insulin regular ??? ondansetron ??? polyethylene glycol ROS Above review of system reviewed on 05/23/2021 Vitals: Vitals: 05/23/21 1045 05/23/21 1100 05/23/21 1115 05/23/21 1130 BP: 108/66 101/67 97/71 98/68 BP Location: Patient Position: Pulse: 106 84 86 87 Resp: Temp: TempSrc: SpO2: Weight: Height: Temp (24hrs), Av.6 ??C (97.8 ??F), Min:36.4 ??C (97.5 ??F), Max:36.8 ??C (98.2 ??F) FiO2 (%): [85 %] 85 % Intake/Output Summary (Last 24 hours) at 05/23/2021 1159 Last data filed at 05/23/2021 1040 Gross per 24 hour Intake 1165 ml Output 1915 ml Net -750 ml Per others Physical Exam Constitutional: General: He is not in acute distress. Appearance: He is well-developed. HENT: Head: Normocephalic and atraumatic. Eyes: Conjunctiva/sclera: Conjunctivae normal. Neck: Thyroid: No thyromegaly. Cardiovascular: Rate and Rhythm: Normal rate and regular rhythm. Heart sounds: No murmur heard. Pulmonary: Effort: Pulmonary effort is normal. No respiratory distress. Breath sounds: Normal breath sounds. No wheezing or rales. Chest: Comments: Sternotomy incision Abdominal: General: Bowel sounds are normal. Palpations: Abdomen is soft. Skin: General: Skin is warm and dry. Neurological: Mental Status: He is alert. Lab/Radiology/Diagnostic Review: Labs: Recent Labs Lab Units 05/23/21 0318 05/22/21 0349 05/21/21 0357 05/18/21 0204 05/17/21 0333 WBC K/cumm 10.0* 7.3 8.3 < > 8.7 HEMOGLOBIN g/dL 9.0* 9.2* 9.5* < > 11.3* HEMATOCRIT % 27.8* 28.0* 28.7* < > 33.8* PLATELETS K/cumm 408* 381 355 < > 267 NEUTROS PCT % -- -- -- -- 78.4 LYMPHS PCT % -- -- -- -- 11.7 MONOS PCT % -- -- -- -- 9.0 EOS PCT % -- -- -- -- 0.1 < > = values in this interval not displayed. Recent Labs Lab Units 05/23/21 1156 05/23/21 1037 05/23/21 0926 05/23/21 0402 05/23/21 0318 05/22/21 0625 05/22/21 0349 05/21/21 2141 05/21/218 05/19/21 0143 05/18/21 2137 05/17/21 0936 05/17/21 0333 SODIUM mmol/L -- -- -- -- 132* -- 134* -- 135 < > -- < > 133* POTASSIUM PLASMA mmol/L -- -- -- -- 3.5 -- 3.5 -- 4.3 < > -- < > 2.6* CHLORIDE mmol/L -- -- -- -- 95* -- 98 -- 97 < > -- < > 92* CO2 mmol/L -- -- -- -- 23 -- 22 -- 22 < > -- < > 22 ANIONGAP mmol/L -- -- -- -- 14 -- 14 -- 16* < > -- < > 19* GLUCOSE mg/dL -- -- -- -- 141 < > 227* < > 257* < > -- < > 157 POC GLUCOSE MONITOR mg/dL 129 109 114 < > 137 < > -- < > -- < > -- < > -- BUN SERUM mg/dL -- -- -- -- 21 -- 24 -- 31* < > -- < > 25 CREATININE mg/dL -- -- -- -- 0.48* -- 0.62* -- 0.72* < > -- < > 1.06 CALCIUM mg/dL -- -- -- -- 8.4* -- 8.6 -- 8.6 < > -- < > 8.3* ALBUMIN g/dL -- -- -- -- -- -- -- -- -- -- 3.6 -- 3.5 ALK PHOS Units/L -- -- -- -- -- -- -- -- -- -- 86 -- 94 ALT Units/L -- -- -- -- -- -- -- -- -- -- 18 -- 20 AST Units/L -- -- -- -- -- -- -- -- -- -- 60* -- 64* BILIRUBIN TOTAL mg/dL -- -- -- -- -- -- -- -- -- -- 0.6 -- 0.7 < > = values in this interval not displayed. Recent Labs Lab Units 05/18/21195205/17/21219 PH ART 7.45 7.50* PCO2 ART mmHg 32* 27* PO2 ART mmHg 58* 72* HCO3 ART (CALC) mmol/L 23 24 BASE EXC ART mmol/L -2 -2 O2 SAT ART (JOELLE) % 89* 96* Imaging: CT chest 05/19/21: b gg inf, severe emphysema Other diagnostic tests: I have personally reviewed above laboratory findings, chest imaging, and diagnostic tests 05/23/2021 CONCLUSIONS: Technically difficult study with limited views. [...] 25 mmHg. Trivial regurgitation in the tricuspid valve Assessment /Plan CAD + STEMI s/p CABG -- Cardiac cath 05/01 with 40% distal LM, 100% prox LAD, 90% prox Cx, 50% prox and distal RCA -- Echo 05/02 EF 37%, CABGx4 05/04/2021 -- SR 80s on Sedicii Pro 2232 -- stable, follow ?? COVID 19 -- dx 05/20/2021 -- on Remdesivir and dexamethason ?? Acute Respiratory failure -- Lung infiltrates per CXR on 05/19, completed Abx -- transferred to ICU 05/17 for increasing oxygen requirments -- on Optiflow -- Increased O2 requirement check BNP to exclude contribution of CHF -- Pulm following ?? Hematuria -- cysto 05/14 -- resolved ?? Urinary retention -- osorio replaced today -- on Tamsulosin ?? S/p Cardiogenic shock + Hypotension -- off pressors -- BP 91/61 -- on Midodrine q6 -- follow ?? Hypokalemia -- on K supplement -- follow ?? Hx V. Fib -- brief on 05/03 -- treated w/ AMiodarone and Dobutamine gtt, ??resolved -- SR 80s on tele ?? HLD -- on Statin ?? DM 13.5 -- glycemic protocol w/ SSI ?? COPD ?? DVT prophylaxis high dd, neg v/q --, SCDs Na 132 ast 60 ?? tsh ok ?? Recs: aldactone farxiga good for chf corlanor for chf F FORESTER * Lc Perez MD - 05/23/2021 8:50 AM CST Pulmonary Daily Progress Chief complaint/reason for consult: Respiratory failure. Interval History: Patient is afebrile still significant hypoxemia currently on 85% FiO2 at 50 liters/minute. Remains on dexamethasone and remdesivir. COVID positive 05/19/21 Presenting History: 60 yo man w COPD, DM, CAD/stents admitted 05/01/21 with chest pain. Had recent hematuria as well. Workup revealed an acute MT. Cath showed multi-vessel CAD. Had balloon pump placed. CABG x 4 done on 05/04/21. He was continued on mechanical ventilation and self extubated this AM (05/05/21). He is on multiple pressors. Sedated with precedex. Some tachypnea. A balloon pump is in place. Current tobacco use. COPD listed as prior diagnosis. No inhalers on home med list. Allergies: Allergies Allergen Reactions ??? Metoclopramide Medications: Scheduled Meds:albuterol HFA, 8 puff, inhalation, Q4H While awake (RT) aspirin, 81 mg, oral, Daily atorvastatin, 80 mg, oral, Nightly dexAMETHasone, 6 mg, intravenous, Daily docusate sodium, 100 mg, oral, BID enoxaparin, 40 mg, subcutaneous, Daily-2100 midodrine, 15 mg, oral, TID pantoprazole DR, 40 mg, oral, Daily QUEtiapine, 50 mg, oral, Nightly remdesivir, 100 mg, intravenous, Q24H sodium chloride 0.9%, 0.5-20 mL, intra-catheter, Q8H LEAH sodium phosphate - potassium phosphate, 250 mg, oral, TID with meals tamsulosin, 0.4 mg, oral, Daily with dinner Continuous Infusions:insulin regular, 0-30 Units/hr, Last Rate: 1.7 Units/hr (05/23/21 0828) PRN Meds:.??? acetaminophen ? ? al & mag hydroxide qunhsnrthvr-hpzpkimerodesnv-isvlkhfsz-nystatin ??? albuterol ??? dextrose ??? dextrose OR [DISCONTINUED] dextrose ??? glucagon ??? guaiFENesin ??? insulin regular ??? ondansetron ??? polyethylene glycol ROS Above review of system reviewed on 05/23/2021 Vitals: Vitals: 05/23/21 0546 05/23/21 0600 05/23/21 0615 05/23/21 0759 BP: 97/65 104/71 Pulse: 75 73 Resp: 25 21 Temp: TempSrc: SpO2: 93% Weight: 79.5 kg (175 lb 4.3 oz) Height: Temp (24hrs), Av.6 ??C (97.9 ??F), Min:36.4 ??C (97.5 ??F), Max:36.8 ??C (98.2 ??F) FiO2 (%): [75 %-85 %] 85 % Intake/Output Summary (Last 24 hours) at 05/23/2021 0850 Last data filed at 05/23/2021 0615 Gross per 24 hour Intake 925 ml Output 1710 ml Net -785 ml Physical Exam Constitutional: General: He is not in acute distress. Appearance: He is well-developed. HENT: Head: Normocephalic and atraumatic. Eyes: Conjunctiva/sclera: Conjunctivae normal. Neck: Thyroid: No thyromegaly. Cardiovascular: Rate and Rhythm: Normal rate and regular rhythm. Heart sounds: No murmur heard. Pulmonary: Effort: Pulmonary effort is normal. No respiratory distress. Breath sounds: Normal breath sounds. No wheezing or rales. Chest: Comments: Sternotomy incision Abdominal: General: Bowel sounds are normal. Palpations: Abdomen is soft. Skin: General: Skin is warm and dry. Neurological: Mental Status: He is alert. Lab/Radiology/Diagnostic Review: Labs: Recent Labs Lab Units 05/23/21 0318 05/22/21 0349 05/21/21 0357 05/18/21 0204 05/17/21 0333 WBC K/cumm 10.0* 7.3 8.3 < > 8.7 HEMOGLOBIN g/dL 9.0* 9.2* 9.5* < > 11.3* HEMATOCRIT % 27.8* 28.0* 28.7* < > 33.8* PLATELETS K/cumm 408* 381 355 < > 267 NEUTROS PCT % -- -- -- -- 78.4 LYMPHS PCT % -- -- -- -- 11.7 MONOS PCT % -- -- -- -- 9.0 EOS PCT % -- -- -- -- 0.1 < > = values in this interval not displayed. Recent Labs Lab Units 05/23/21 0712 05/23/21 0609 05/23/21 0458 05/23/21 0402 05/23/21 0318 05/22/21 0625 05/22/21 0349 05/21/21214005/21/218 05/19/21 0143 05/18/217 05/17/21 0936 05/17/21 0333 SODIUM mmol/L -- -- -- -- 132* -- 134* -- 135 < > -- < > 133* POTASSIUM PLASMA mmol/L -- -- -- -- 3.5 -- 3.5 -- 4.3 < > -- < > 2.6* CHLORIDE mmol/L -- -- -- -- 95* -- 98 -- 97 < > -- < > 92* CO2 mmol/L -- -- -- -- 23 -- 22 -- 22 < > -- < > 22 ANIONGAP mmol/L -- -- -- -- 14 -- 14 -- 16* < > -- < > 19* GLUCOSE mg/dL -- -- -- -- 141 < > 227* < > 257* < > -- < > 157 POC GLUCOSE MONITOR mg/dL 144 144 130 < > 137 < > -- < > -- < > -- < > -- BUN SERUM mg/dL -- -- -- -- 21 -- 24 -- 31* < > -- < > 25 CREATININE mg/dL -- -- -- -- 0.48* -- 0.62* -- 0.72* < > -- < > 1.06 CALCIUM mg/dL -- -- -- -- 8.4* -- 8.6 -- 8.6 < > -- < > 8.3* ALBUMIN g/dL -- -- -- -- -- -- -- -- -- -- 3.6 -- 3.5 ALK PHOS Units/L -- -- -- -- -- -- -- -- -- -- 86 -- 94 ALT Units/L -- -- -- -- -- -- -- -- -- -- 18 -- 20 AST Units/L -- -- -- -- -- -- -- -- -- -- 60* -- 64* BILIRUBIN TOTAL mg/dL -- -- -- -- -- -- -- -- -- -- 0.6 -- 0.7 < > = values in this interval not displayed. Recent Labs Lab Units 05/18/21195205/17/21219 PH ART 7.45 7.50* PCO2 ART mmHg 32* 27* PO2 ART mmHg 58* 72* HCO3 ART (CALC) mmol/L 23 24 BASE EXC ART mmol/L -2 -2 O2 SAT ART (JOELLE) % 89* 96* Imaging: CT chest 05/19/21: b gg inf, severe emphysema Other diagnostic tests: I have personally reviewed above laboratory findings, chest imaging, and diagnostic tests 05/23/2021 Assessment and Plan: Acute respiratory failure Acute MT w CAD s/p CABG x 4 on 05/04/21, past hx multiple stents Cardiogenic shock, resolved Cardiomyopathy EF 40% V fib COPD: severe emphysematous changes on CT Anemia Hematuria s/p cystoscopy/fulguration COVID 19, diagnosed 05/19/21, resp status began worsening 05/15/21 ?? Recs: Oxygen support, wean as able Dexamethasone started 05/19 Consider baricitinib On remdesivir Incentive spirometry Scheduled albuterol abx coverage for pna: Zosyn, completed Scheduled bronchodilators Increase activity as tolerated Chart reviewed F FORESTER * Yves Weinberg MD - 05/22/2021 9:12 PM CST Nephrology Progress Note [facility] SUBJECTIVE 05/22/21 Pt seen/examined. All labs and data reviewed. Na 134, Cr 0.62. Dyspnea better. Eager to go home but remains in ICU. Stable renal fn and lytes. OK for loop diuretics PRN. Avoid thiazides. 05/21/21 Pt seen/examined. All labs reviewed. Off lasix drip. Still dyspneic. Renal fn better. Na 135. 05/20/21 Pt seen/examined. All labs and data reviewed. COVID pos. On Dex and remdisivir. On lasix drip. Na 130, Cr 1.44. 05/19 Cr 1.41 Na 130. Started on Corlanor. Appears stable. BP remains very soft. UO not accurate. 05/17 Transferred to ICU for hi O2 requirements. Has left nostril epistaxis. On low dose pressors and lasix and insulin drip. Na 128, should improve with loop diuresis. Cr 1.2. 05/16 Creatinine stable and sodium trending up.On IV lasix,lytes wnl.Osorio out,having some problems with retention- nurses in contact with urology,doing bladder scans. 05/15/21 Doing fair. Osorio out. Has not voided yet. Na 131 with loop diuresis and improved. All labs and data reviewed. Excellent UO. Doing fair. Some flank pain and mild dyspnea. Na 127 and a little lower. BP better. Agreeable to cysto, but urology planning on conservative tx. Will start loop diuresis. OBJECTIVE Vitals: Vitals: 05/22/21 1900 05/22/21 1915 05/22/21 1930 05/22/211944 BP: 108/65 112/63 99/64 102/63 Pulse: 85 88 82 80 Resp: 23 17 27 22 Temp: TempSrc: SpO2: Weight: Height: Intake/Output Summary (Last 24 hours) at 05/22/20212111 Last data filed at 05/22/2021 1805 Gross per 24 hour Intake 1240 ml Output 1985 ml Net -745 ml REVIEW OF SYSTEMS Review of Systems Epistaxis, dyspnea. Constitutional: Negative. HENT: Negative. Eyes: Negative. Respiratory: Negative. Cardiovascular: Negative. Gastrointestinal: Negative. Genitourinary: Negative. Musculoskeletal: Negative. Skin: Negative. Allergic/Immunologic: Negative. Hematological: Negative. All other systems reviewed and are negative. PHYSICAL EXAM Physical Exam Constitutional: Appears well-developed. O2 on HENT: wnl Head: Normocephalic. Eyes: Pupils are equal, round, and reactive to light. Neck: Normal range of motion. Neck supple. Cardiovascular: Normal rate. Pulmonary/Chest: Effort normal and breath sounds normal. Abdominal: Soft. NT,active BS Musculoskeletal: Normal range of motion. Neurological: Alert, oriented. Skin: Skin is warm. Nursing note and vitals reviewed. MEDICATIONS Current Facility-Administered Medications: ??? acetaminophen (TYLENOL) tablet 650 mg, 650 mg, oral, Q6H PRN, Eleonora Duarte NP, 650 mg at 05/21/21 1545 ? ? al & mag hydroxide isccyoauppb-xzojixhurpkatng-vlomcvvem-nystatin (MAGIC MOUTHWASH) suspension 1-1-1-1, 20 mL, swish & spit, Q4H PRN, Elena Kelly NP ??? albuterol 2.5 mg /3 mL (0.083 %) nebulizer solution 2.5 mg, 2.5 mg, nebulization, Q4H PRN (RT),Ralf Tomlinson MD, 2.5 mg at 05/17/21 0224 ??? albuterol HFA (PROVENTIL HFA,VENTOLIN HFA,PROAIR HFA) 90 mcg/actuation inhaler 8 puff, 8 puff, inhalation, Q4H While awake (RT), Ralf Tomlinson MD, 8 puff at 05/22/21 1418 ??? aspirin enteric coated tablet 81 mg, 81 mg, oral, Daily, Varsha Crowder NP, 81 mg at 05/22/21 0836 ??? atorvastatin (LIPITOR) tablet 80 mg, 80 mg, oral, Nightly, Munfakh, Rhina A., MD, 80 mg at 05/22/212019 ??? dexAMETHasone (DECADRON) 4 mg/mL injection 6 mg, 6 mg, intravenous, Daily, Silviano Huddleston NP, 6 mg at 05/22/21 0836 ??? dextrose (D10W) 10% bolus 1-500 mL, 1-500 mL, intravenous, PRN, Jose Conti MD ??? dextrose oral liquid liquid 15 g, 15 g, oral, Q15 Min PRN OR dextrose (D10W) 10% bolus 250 mL, 250 mL, intravenous, Q15 Min PRN, Anibal Lara MD ??? docusate sodium (COLACE) capsule 100 mg, 100 mg, oral, BID, 100 mg at 05/22/212020 OR [DISCONTINUED] docusate (COLACE) 10 mg/mL oral liquid 100 mg, 100 mg, feeding tube, BID, Rhina Granados MD, 100 mg at 05/05/21 0842 ??? enoxaparin (LOVENOX) syringe 40 mg, 40 mg, subcutaneous, Daily-2100, Rhina Granados MD, 40 mg at 05/22/212019 ??? glucagon injection 1 mg, 1 mg, intramuscular, Q30 Min PRN, Anibal Lara MD ??? guaiFENesin (ROBITUSSIN) 20 mg/mL oral liquid 200 mg, 200 mg, oral, QID PRN, Caleb Toth PA, 200 mg at 05/21/21 0810 ??? insulin regular bolus from bag 1-10 Units, 1-10 Units, intravenous, PRN, Jose Conti MD ??? insulin regular in 0.9% sodium chloride 100 units/100 mL infusion (premix), 0-30 Units/hr, intravenous, Titrated, Jose Conti MD, Last Rate: 6.2 mL/hr at 05/22/212018, 6.2 Units/hr at 05/22/212018 ??? midodrine (PROAMATINE) tablet 15 mg, 15 mg, oral, TID, Silviano Huddleston NP, 15 mg at 05/22/21 1432 ??? ondansetron (ZOFRAN) injection 4 mg, 4 mg, intravenous, Q6H PRN, Rhina Granados MD ??? pantoprazole DR (PROTONIX) extended release tablet 40 mg, 40 mg, oral, Daily, Rhina Granados MD, 40 mg at 05/22/21 0836 ??? polyethylene glycol (MIRALAX) packet 17 g, 17 g, oral, Daily PRN, Rhina Granados MD ??? QUEtiapine (SEROquel) tablet 50 mg, 50 mg, oral, Nightly, Silviano Huddleston NP, 50 mg at 05/22/21 2020 ??? remdesivir (VEKLURY) 100 mg in sodium chloride 0.9% 250 mL IVPB, 100 mg, intravenous, Q24H, Elena Kelly NP, Last Rate: 270 mL/hr at 05/21/21 2357, 100 mg at 05/21/21 2357 ??? sodium chloride 0.9% flush 0.5-20 mL, 0.5-20 mL, intra-catheter, Q8H LEAH, Rhina Granados MD, 10 mL at 05/22/21 1344 ??? sodium phosphate - potassium phosphate (K-PHOS NEUTRAL) tablet 250 mg, 250 mg, oral, TID with meals, Silviano Huddleston NP, 250 mg at 05/22/21 1708 ??? tamsulosin (FLOMAX) extended release capsule 0.4 mg, 0.4 mg, oral, Daily with dinner, Elena Kelly NP, 0.4 mg at 05/22/21 1708 Lab/Radiology/Diagnostic Review: Recent Results (from the past 24 hour(s)) Calcium, ionized Collection Time: 05/21/21 9:18 PM Result Value Ref Range Ca, ionized, bld 4.70 4.60 - 5.20 mg/dL Ca, ionized, bld, calc 4.75 4.60 - 5.20 mg/dL Magnesium Collection Time: 05/21/21 9:18 PM Result Value Ref Range Magnesium 2.3 1.4 - 2.5 mg/dL Phosphorus Collection Time: 05/21/21 9:18 PM Result Value Ref Range Phosphorus, pl 2.7 2.3 - 4.5 mg/dL Basic metabolic panel Collection Time: 05/21/21 9:18 PM Result Value Ref Range Sodium 135 135 - 145 mmol/L Potassium, pl 4.3 3.3 - 4.9 mmol/L Chloride 97 97 - 110 mmol/L CO2 22 22 - 32 mmol/L Anion gap 16 (H) 2 - 15 mmol/L BUN 31 (H) 8 - 25 mg/dL Creatinine 0.72 (L) 0.80 - 1.30 mg/dL Glucose 257 (H) 70 - 199 mg/dL Calcium 8.6 8.5 - 10.3 mg/dL eGFR Collection Time: 05/21/21 9:18 PM Result Value Ref Range eGFR 102 mL/min/1.73 m2 POCT glucose Collection Time: 05/21/21 9:41 PM Result Value Ref Range Glucose, POC 224 (H) 70 - 199 mg/dL POCT glucose Collection Time: 05/21/21 11:39 PM Result Value Ref Range Glucose, POC 268 (H) 70 - 199 mg/dL POCT glucose Collection Time: 05/22/21 2:27 AM Result Value Ref Range Glucose, POC 266 (H) 70 - 199 mg/dL Phosphorus Collection Time: 05/22/21 3:49 AM Result Value Ref Range Phosphorus, pl 2.2 (L) 2.3 - 4.5 mg/dL Magnesium Collection Time: 05/22/21 3:49 AM Result Value Ref Range Magnesium 2.1 1.4 - 2.5 mg/dL CBC without differential Collection Time: 05/22/21 3:49 AM Result Value Ref Range WBC 7.3 3.8 - 9.9 K/cumm Hgb 9.2 (L) 13.0 - 17.5 g/dL Hct 28.0 (L) 38.9 - 50.3 % Plt 381 150 - 400 K/cumm MPV 11.8 9.1 - 12.3 fL RBC 3.05 (L) 4.30 - 5.80 M/cumm MCV 91.8 81.3 - 96.4 fL MCH 30.2 27.1 - 33.3 pg MCHC 32.9 32.3 - 35.7 g/dL RDW CV 13.3 11.1 - 14.9 % RDW SD 44.4 35.7 - 48.1 fL NRBC abs 0.00 0.00 - 0.01 K/cumm Basic metabolic panel Collection Time: 05/22/21 3:49 AM Result Value Ref Range Sodium 134 (L) 135 - 145 mmol/L Potassium, pl 3.5 3.3 - 4.9 mmol/L Chloride 98 97 - 110 mmol/L CO2 22 22 - 32 mmol/L Anion gap 14 2 - 15 mmol/L BUN 24 8 - 25 mg/dL Creatinine 0.62 (L) 0.80 - 1.30 mg/dL Glucose 227 (H) 70 - 199 mg/dL Calcium 8.6 8.5 - 10.3 mg/dL eGFR Collection Time: 05/22/21 3:49 AM Result Value Ref Range eGFR 109 mL/min/1.73 m2 Pro B-type natriuretic peptide Collection Time: 05/22/21 3:49 AM Result Value Ref Range NT-proBNP 2,233 (H) <=300 pg/mL POCT glucose Collection Time: 05/22/21 6:25 AM Result Value Ref Range Glucose, POC 163 70 - 199 mg/dL POCT glucose Collection Time: 05/22/21 8:28 AM Result Value Ref Range Glucose, POC 225 (H) 70 - 199 mg/dL POCT glucose Collection Time: 05/22/21 9:32 AM Result Value Ref Range Glucose, POC 284 (H) 70 - 199 mg/dL POCT glucose Collection Time: 05/22/21 10:35 AM Result Value Ref Range Glucose, POC 252 (H) 70 - 199 mg/dL POCT glucose Collection Time: 05/22/21 11:30 AM Result Value Ref Range Glucose, POC 194 70 - 199 mg/dL POCT glucose Collection Time: 05/22/21 12:27 PM Result Value Ref Range Glucose, POC 156 70 - 199 mg/dL POCT glucose Collection Time: 05/22/21 1:32 PM Result Value Ref Range Glucose, POC 140 70 - 199 mg/dL POCT glucose Collection Time: 05/22/21 2:35 PM Result Value Ref Range Glucose, POC 153 70 - 199 mg/dL POCT glucose Collection Time: 05/22/21 3:47 PM Result Value Ref Range Glucose, POC 140 70 - 199 mg/dL POCT glucose Collection Time: 05/22/21 4:55 PM Result Value Ref Range Glucose, POC 160 70 - 199 mg/dL POCT glucose Collection Time: 05/22/21 5:56 PM Result Value Ref Range Glucose, POC 157 70 - 199 mg/dL POCT glucose Collection Time: 05/22/21 8:18 PM Result Value Ref Range Glucose, POC 184 70 - 199 mg/dL XR Chest 1 View - Portable - in AM Result Date: 05/11/2021 Narrative: EXAMINATION: XR CHEST 1 VIEW HISTORY: The patient is a 60-year-old male who has had cardiac surgery. Comparison made with the previous study dated 05/10/2021. TECHNIQUE: AP portable view of the chest. FINDINGS: Lungs clear. Heart not enlarged. Aortic atherosclerosis. No failure. The right IJ [place] catheter has been retracted with its tip in the distal superior vena cava. Impression: IMPRESSION: No failure. Electronically signed by: Elvira Blackman M.D. XR Chest 1 View - Portable - in AM Result Date: 05/10/2021 Narrative: EXAMINATION: XR CHEST 1 VIEW DATE: 05/10/2021 2:40 AM COMPARISON: 05/09/2021 HISTORY: 60-year-old man cardiac surgery follow-up FINDINGS:Compared with study the previous day, significant improvement. There is cardiomegaly with postsurgical changes with continued and decreasing failure. Bibasilar atelectasis with left pleural fluid decreasing. No pneumothorax. [place] catheter remainsin place Impression: Decreasing failure, atelectasis and left effusion. Electronically signed by: Deandre Lomeli M.D. XR Chest 1 View - Portable - in AM Result Date: 05/09/2021 Narrative: EXAMINATION: XR CHEST 1 VIEW DATE: 05/09/2021 4:10 AM HISTORY: 60-year-old man cardiac surgery follow-up FINDINGS:Compared with study the previous day, significant improvement. There is cardiomegaly with postsurgical changes with continued but decreasing failure. Bibasilar atelectasis with left pleural fluid decreasing. No pneumothorax. [place] catheter remains in place Impression: Decreasing failure, atelectasis and left effusion. Electronically signed by: Deandre Lomeli M.D. XR Chest 1 View - Portable - in AM Result Date: 05/08/2021 Narrative: EXAMINATION: XR CHEST 1 VIEW DATE: 05/08/2021 4:15 AM HISTORY: 60-year-old man cardiac surgery follow-up FINDINGS:Compared with study the previous day, significant improvement. There is cardiomegaly with postsurgical changes with continued but decreasing failure. Bibasilar atelectasis with left pleural fluid. No pneumothorax. [place] catheter remains in place Impression: Decreasing failure. No pneumothorax. Electronically signed by: Deacon Cummings M.D. XR Chest 1 View - Portable - in AM Result Date: 05/07/2021 Narrative: EXAMINATION: XR CHEST 1 VIEW DATE: 05/07/2021 3:55 AM HISTORY: 60-year-old man follow-upcardiac surgery FINDINGS:Compared with study of the previous day, postsurgical changes in the heartand mediastinum with cardiomegaly are stable. [place] catheter remains in place. Left thoracostomy tube remains in place. No pneumothorax. Pulmonary vascular congestion with interstitial lung disease remain prominent. Impression: Persistent prominent interstitial lung disease with failure. Electronically signed by: Deacon Cummings M.D. XR Chest 1 View - Portable - in AM Result Date: 05/06/2021 Narrative: EXAMINATION: XR CHEST 1 VIEW DATE: 05/06/2021 4:05 AM INDICATION: Cardiac surgery. COMPARISON: 05/05/2021. FINDINGS: No pneumothorax or pleural effusion. Similar-appearing pulmonary vascular congestion and interstitial opacities most notable in the bilateral upper lobes consistent with pulmonary edema. Pulmonary catheter catheter, left thoracostomy tube, and mediastinal drain are appropriately position. Intra-aortic balloon pump is appropriately positioned. Interval removal of endotracheal tube. Impression: 1. Interval removal of endotracheal tube. Remaining tubes and lines are appropriately positioned. 2. Similar-appearing cardiomegaly, pulmonary vascular congestion, and prominent bilateralinterstitial markings suggestive of interstitial pulmonary edema. Electronically signed by: Richard Zhao II, D.O. XR Chest 1 View - Portable - in AM Result Date: 05/05/2021 Narrative: EXAMINATION: XR CHEST 1 VIEW DATE: 05/05/2021 4:15 AM HISTORY: 60-year-old man cardiac surgery follow-up FINDINGS:Compared with the study of the prior day, tubes and catheters remain satisfactorily positioned. Worsening pulmonary vascular congestive changes are seen. Cardiomegaly with postsurgical changes stable. No pneumothorax. Impression: Increasing failure. Electronically signed by: Deacon Cummings M.D. XR Chest 1 Vw Portable Result Date: 05/05/2021 Narrative: EXAMINATION: XR CHEST 1 VIEW DATE: 05/04/2021 8:40 PM HISTORY: 60-year-old man coronary artery bypass follow-up FINDINGS:Compared with the study of earlier the same day, postsurgical changes now evident within the heart and mediastinum with cardiomegaly. Interval placement of endotracheal tube, nasogastric tube, [place] catheter, left thoracostomy tube and mediastinal drain all in satisfactory position. No pneumothorax. Interstitial lung disease with mild pulmonary vascular congestive changes. Aortic balloon pump is no longer seen. Impression: Tube placements with postsurgical changes with cardiomegaly with interstitial lung disease and mild failure with no pneumothorax. Electronically signed by: Deacon Cummings M.D. XR Chest 1 Vw Portable Result Date: 05/04/2021 Narrative: EXAMINATION: XR CHEST 1 VIEW DATE: 05/04/2021 9:05 AM HISTORY: Coronary artery disease FINDINGS:Comparison is made with study of 2 days earlier. Cardiomegaly, COPD with interstitial lung disease stable. Mild failure. Aortic balloon pump stable in position at the proximal descending aorta. No pneumothorax. No new infiltrates. Impression: Stable appearance. COPD cardiomegaly, with mild failure suspected. Electronically signed by: Deacon Cummings M.D. XR Chest 1 Vw Portable Result Date: 05/02/2021 Narrative: EXAMINATION: XR CHEST 1 VIEW DATE: 05/02/2021 5:15 AM INDICATION: Intra-aortic balloon pump. COMPARISON: 05/01/2021. FINDINGS: Appropriately positioned intra-aortic balloon pump appears unchanged. No pneumothorax or pleural effusion. Mixed reticular and alveolar opacities demonstrated inall lung lobes appear most significant in the upper lobes and perihilar regions, unchanged. Impression: 1. Appropriately positioned intra-aortic balloon pump. 2. Similar mixed reticular and alveolar opacities most notable in the bilateral upper lobes and perihilar region. Electronically signed by: Richard Lopez II, D.O. XR Chest 1 Vw Portable Result Date: 05/02/2021 Narrative: EXAMINATION: XR CHEST 1 VIEW DATE: 05/01/2021 8:15 PM INDICATION: Hypoxia. COMPARISON: None. FINDINGS: No pneumothorax. No pleural effusion. Mixed reticular and alveolar opacities are demonstrated in all lung lobes but demonstrate an upper lobe and perihilar predominance. Findings may represent pulmonary edema on background of centrilobular emphysematous changes. Underlying infectious process not entirely excludable. Cardiac mediastinal silhouette is stable in appearance. No acute osseous abnormality. Impression: Mixed reticular and alveolar opacities are demonstrated in all lung lobes but demonstrate an upper lobe and perihilar predominance. Findings may represent pulmonary edema on background ofcentrilobular emphysematous changes. Electronically signed by: Richard Lopez II, D.O. Transthoracic Echo (TTE) Limited Result Date: 05/07/2021 Narrative: [place] [address] Limited Echocardiogram Report Patient Name: DEEPAK ALVARADO : 1960 StudyDate: 05/07/2021 12:16:52 PM Gender: M Tech: Location: [id number] Ref.Provider: RHINA GRANADOS Height(Cm): 175 BSA: 2.1 Weight(Kg): 91 Heart Rate: 82 BP: 127/44 Quality: Good Order Provider: Dr. Sutton Procedures: Echocardiographic Report: Limited transthoracic echocardiogram with 2D and M-Mode. Measurements: 2D/M Mode Measurement Value Normal Range LVIDd 2D 3.43 [ 4.20 -5.90 ] cm LVIDs 2D 2.59 [ 2.30 - 3.90 ] cm LVPWd 2D 1.01 [ 0.60 - 1.00 ] cm IVSd 2D 0.71 [ 0.60 - 0.90 ] cm Findings: Left Ventricle: Reduced left ventricular cavity size. Mild global left ventricular systolic dysfunction. Ejection fraction is measured at 42 %. These segments of the LV are hypokinetic: apical anterior segment. Pericardium: Trivial pericardial effusion. No echocardiographic evidence to suggest pericardial tamponade. Conclusions: Reduced left ventricular cavity size. Mild global left ventricular systolic dysfunction. Ejection fraction is measured at 42 %. These segments of the LV are hypokinetic: apical anterior segment. Trivial pericardial effusion. No echocardiographic evidence to suggest pericardial tamponade. Electronically Signed By: Gianni Francois MD, [facility] :54:09 STAFF FORESTER Transthoracic Echo Complete W Doppler/CF Result Date: 05/02/2021 Narrative: [place] [address] Echocardiogram Report Patient Name: DEEPAK ALVARADO W : 1960 Study Date: 05/02/2021 8:50:02 AM Gender: M Tech: Location: [place] [address] Ref Provider: NALINI CLAYTONHeight(Cm): 175 BSA: 2.11 Weight(Kg): 92 Heart Rate: 89 BP: 102/52 Quality: Good Order Provider: NALINI CLAYTON PROCEDURES: Echocardiographic Report: Transthoracic echocardiogram with complete 2D, M-Mode, and color Doppler examination. INDICATIONS: Free Text. Measurements: 2D/M Mode Doppler Measurement Value Normal Range Measurement Value Normal Range EF Teich 2D 30.0 [ 55.0 - 70.0 ] percent CHRISTINA Vmax 2.04 [ 2.00 - 4.00 ] cm2 EF Mod 4C 42.2 [ 55.0 - 70.0 ] percent AV Mean PG 5 [ 2 - 4 ] mmHg LVIDd 2D 4.54 [ 4.20 - 5.90 ] cm AV Peak Ramesh 1.54 [ 1.00 - 1.70 ] m/s LVIDs 2D 3.91 [ 2.30 - 3.90 ] cm AV VTI 26.93 cm LVPWd 2D 0.92 [ 0.60 - 1.00 ] cm LVOT Diam 2.20 [ 1.70 - 2.10 ] cm IVSd 2D 0.76 [ 0.60 - 0.90 ] cm LVOT Peak Ramesh 0.83 [ 0.70 - 1.10 ] m/s LA Dimension MM 5.08 [ 3.00 - 4.00 ] cm LVOT VTI 13.82 [ 20.00 - 30.00 ] cm AoR Diam MM 4.12 [ 2.60 - 3.70 ] cm MV E Peak Ramesh 0.85 [ 0.60 - 1.30 ] m/s LA Volume Index 20.83 [ 16.00 - 28.00 ] cc/m2 MV A Peak Ramesh 1.14 [ 1.00 - 1.20 ] m/sACS MM 1.91 [ 1.50 - 2.60 ] cm MV Mean PG 1 [ <= 5 ] mmHg MV PHT 43 [ 20 - 100 ] msec MVA 2.20MV Decel Time 137 [ 104 - 258 ] msec PV Peak Ramesh 1.10 [ 0.40 - 0.80 ] m/s TR Peak Ramesh 1.32 [ 1.00 -2.80 ] m/s TR Peak PG 7 mmHg RVSP 16.93 [ 10.00 - 36.00 ] mmHg E' 0.06 E/E' 14.00 Measurement Value Normal Range Measurement Value Normal Range 2D/M Mode Doppler - FINDINGS: Atrial Septum: Normal atrial septum. Left Ventricle: Normal left ventricular size. Left ventricle not well visualized. There is severe hypokinesis of the mid anteroseptal, anterior, and apical [place]. Normal left ventricularwall thickness. Impaired diastolic relaxation Grade I. Ejection fraction is visually estimated at 40 %. Left Atrium: The left atrium is normal in size. Right Ventricle: Normal right ventricular size.Normal right ventricular systolic function. Right Atrium: The right atrium is normal in size. Aortic Valve: Normal structure of the aortic valve. No evidence of hemodynamically significant aortic stenosis by Doppler. No aortic regurgitation. Mitral Valve: Normal structure of the mitral valve. Trivial regurgitation of the mitral valve. Pulmonic Valve: Pulmonic valve not well visualized. Trivial regurgitation in the pulmonic valve. Tricuspid Valve: Normal structure of the tricuspid valve. Trivialregurgitation in the tricuspid valve. Pericardium: Normal pericardium with no significant pericardial effusion. Aorta: Normal aortic root. IVC: Normal size and normal respiratory collapse consistent with normal right atrial pressure (<5 mmHg). CONCLUSIONS: Technically difficult study with limited views. Normal left ventricular size. Left ventricle not well visualized. There is severe hypokinesis of the mid anteroseptal, anterior, and apical [place]. Normal left ventricular wall thickness. Impaired diastolic relaxation Grade I. Ejection fraction is visually estimated at 40 %. Normal right ventricular size. Normal right ventricular systolic function. Normal structure of the mitral valve. Triv ial regurgitation of the mitral valve. Normal structure of the tricuspid valve. Trivial regurgitation in the tricuspid valve. Electronically Signed By: Rylee Brito DO, FACJustyna, VILMA, FAISAL 2021-05-02 14:07:25 STAFF FORESTER CC: CC: CC: ASSESSMENT/PLAN Hyponatremia from SIADH and possibly from zaroxylyn use. Work up for hyponatremia ongoing. PO FR. No normotonic fluids yet. Urine lytes and osm. If in clinical fluid overload, can use tolvaptan. Renal fn is better. Na better with loop diuresis, but currently acceptable off it. Daily BMP. No med changes by me today. ?? Recent bladder tumor removal with hematuria. ?? -??Urology is following.H/H stable -Cysto vs conservative tx. -Voiding trial, hematuria has stopped. -Epistaxis Use nasal pillows. -CHF with decompensation Continue diuresis. RHC not done. Agree with Corlanor. ?? Hypokalemia from diuresis. Replace PRN. ?? 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 COVID positive. Per protocol. On Remdisivir and Dex. ?? Syncopal episode -(+) orthostasis -receiving albumin -IV lasix was discontinued. ??There is a 1x order for zaroxolyn 10mg this am- recommend holding fornow. ??D/w RN ?? Coronary artery disease -s/p CABG post STEMI -??underwent four-vessel bypass ??MAE to the LAD, sequential saphenous vein graft to diagonal and obtuse marginal and a vein graft to the PDA. -s/p??low dose dobutamine -paced rhythm -??IV??diuretics??discontinued d/t syncopal episode today (see above) ?? Moderate LV dysfunction -s/p IV??lasix??and??low dose??dobutamine -Beta blockers, ??[place] once off dobutamine-would hold off adding given syncopal episode this am -repeat ECHO 05/07 EF 42% (see above) ?Nonsustained ventricular tachycardia -no recurrence of VT -K 3.7, Mg??2.0. ??Supplement to keep K >/= 4.0, Mg >/= 2.0 ?Diabetes mellitus -?on lantus and SSI ?? COPD: ?? -on?O2 NC??4L (dried blood to L nare humidified o2 ordered) ?? Dyslipidemia -?Continue atorvastatin. ?PAD -?Stable ? Anemia -Hb??11.4 (10.5)??(8.6) -monitor ?? I can be reached at [phone] with any concerns. Thank you Rhina Granados MD for the consult. Yves Weinberg MD [employer] [phone] F FORESTER * Ellen Shore, COMPRESSOR HOUSE OPERATOR - 05/22/2021 4:07 PM CST Physical Therapy PT PROGRESS NOTE Deepak Alvarado 60 y.o. 1960 Past Medical History: Diagnosis Date ??? Chronic obstructive pulmonary disease (CMS/HCC) (HCC) COPD ??? Coronary artery disease ??? Diabetes mellitus (HCC) ??? H/O heart artery stent 2006 ??? Hypertension Hypertension ??? ST elevation (STEMI) myocardial infarction ([facility]) 05/01/2021 History reviewed. No pertinent surgical history. Patient Active Problem List Diagnosis ??? ST elevation myocardial infarction (STEMI) ([facility]) TIME IN: 1607 TIME OUT: 1630 SUBJECTIVE Okay, whatever you want me to do. MENTAL STATUS/ORIENTATION: alert PAIN: Pre-therapy pain level: denies pain Pain location: n/a Pain intervention: n/a Post-therapy pain level/response to intervention: unchanged OBJECTIVE PRECAUTIONS: fall, cardiac, sternal, contact + airborne for COVID19+ APPEARANCE/POSTURE: male patient seated in chair with IV, monitor lines, urinary catheter, optiflow. VITAL SIGNS: Resting BP: 107/61 Post-activity BP: - Resting heart rate: 107 BPM Post-activity heart rate: 118 BPM highest noted with activity; 108 BPM at end of session Resting O2 sat: 100% on optiflow. Post-activity O2 sat: 88-96% during standing activity MOBILITY DOCUMENTATION: Bed Mobility/Transfers: sit to/from stand with min assist. Gait: stand/march in place 10 steps bilat with w/w with CGA/min; performed 2x for 1 minute each. TREATMENT: Seated bilat LE exercises x10 reps each. APPEARANCE/POSTURE (end of session): seated in chair with lines as upon entering room, call light in reach. EDUCATION: Transfers, pre-gait, strengthening RESPONSE TO EDUCATION: needs reinforcement ASSESSMENT Activity tolerance/response to P.T.: Patient was able to march in place with w/w for 1 minute x2 Barriers to learning: Physical and Cognitive Barriers to discharge: Limited family support, Limited safety awareness, Decreased endurance, Lowerextremity weakness, Medical complications and sternal precautions Patient continues progressing toward previously set goals which remain appropriate at this time. PLAN Patient to be seen for P.T. 3-5 times per week to address previously established deficits and goals. DISCHARGE LOCATION RECOMMENDATIONS: INPATIENT REHABILITATION PENDING QUALIFYING CRITERIA If this is the last note, please consider this the discharge summary. Cosigned by Sandee Paez, PT at 05/25/2021 7:46 AM STAFF FORESTER F FORESTER F FORESTER * Shruthi Hu COTA - 05/22/2021 3:09 PM CST Occupational Therapy NOTE / SESSION TYPE: DAILY PROGRESS / TREATMENT Patient's Name: Deepak Alvarado Age / Sex: 60 y.o. / male Room: [place] [address] : 1960 Date of service: 05/22/21 TIME IN: 15:20 TIME OUT: 16:01 Patient Active Problem List Diagnosis ??? ST elevation myocardial infarction (STEMI) (HCC) Past Medical History: Diagnosis Date ??? Chronic obstructive pulmonary disease (CMS/HCC) (HCC) COPD ??? Coronary artery disease ??? Diabetes mellitus (HCC) ??? H/O heart artery stent 2006 ??? Hypertension Hypertension ??? ST elevation (STEMI) myocardial infarction (HCC) 05/01/2021 History reviewed. No pertinent surgical history. Precautions (including weight-bearing): Fall risk, Bed / chair alarm, Sternal precautions, Cardiac precautions, Contact isolation: COVID and Airborne precautions: COVID Subjective: PATIENT STATES, MY TEETH ARE NOT GOOD, SO THEY HURT ME SOMETIMES. Therapy Pain: Pre-therapy pain level: 3 /10 Pain location: MY TEETH Pain Intervention(s): RN Notified and Pain medication administered prior to session Post-therapy pain level: 3 /10 Pain scale reference: 0-10 SCALE Objective: Appearance: Presentation upon OT arrival: Patient Supine with head of bed elevated Presentation upon OT departure: Patient Sitting in bedside chair Bed / Chair alarm in place and activated upon OT departure: N/A- PER RN REQUEST Call light within arms reach of patient at end of session: Yes Completed patient handoff and notified MANAGER RENTAL / RN, name: TIANA, of patient's location and functional status upon completion of session VITAL SIGNS: Heart rate at rest: 94 BPM Heart rate with activity: 90 BPM O2 saturations at rest: 99 % O2 saturations with activity: 93 % Oxygen LPM: REMAINED ON CONTINUOUS OPTIFLOW @ 80% PER 70 LPM Blood pressure at rest: 99 / 55 Blood pressure immediately after sitting up: 102 / 74 Blood pressure with activity: 107 / 61 Cognitive / Perceptual: FOLLOWED ONE-STEP COMMANDS THIS AFTERNOON WITHOUT ANY SIGNS OF DIFFICULTY Mobility / Transfers: Bed Mobility: MOD ASSIST FROM SUPINE WITH HOB ELEVATED > SEATED AT EOB D/T DECREASED STRENGTH IN CORE REGION DURING COMPLETION OF TASK Transfer(s): CGA FROM SEATED AT EOB > STANDING AT EOB WITHOUT DEVICE AND [id number] ASSIST ONLY CGA WITH [id number] ASSISTANCE FROM STANDING AT EOB > SEATED AT BEDSIDE CHAIR WITH UTILIZATIONOF NO DEVICE Living Skills / Other Activities: PUTTING ON / TAKING OFF FOOTWEAR LOCATION OF PUTTING ON / TAKING OFF FOOTWEAR: Sitting in bedside chair / recliner TASKS COMPLETED: Footie(s) OVERALL ASSIST LEVEL: SUPERVISION ASSISTANCE / VERBAL CUES ADDITIONAL DOCUMENTATION: PATIENT DOFFED/DONNED BILATERAL LE FOOTIES WITH UTILIZATION OF LEG-CROSSOVER TECHNIQUE WITH SBA AFTER INITIAL VERBAL/VISUAL DEMONSTRATION PER THERAPIST IN ORDER TO MAINTAIN CARDIAC PRECAUTIONS Caregiver Present: No Education & Training Provided: Role of OT, OT plan of care, ADL training, Compensatory ADL strategies, Bed mobility training, Functional transfer training, Balance training, Safety education and CARDIAC AND STERNAL precautions Assessment: Activity tolerance / response to OT session: GOOD PARTICIPATION, GOOD MOTIVATION, RECEPTIVE TO EDUCATION / TRAINING, PRN REST BREAKS REQUIRED and FATIGUED Progress towards goals: Please refer to care plan from this date for progress towards individual goals Plan: Therapy Plan: Rehab Potential (Prognosis): good OT Recommendations This Date: Location: Inpatient rehabilitation pending qualify criteria Supervision: 24 hour Follow-up Therapy Recommendations: SKILLED OT IN INPATIENT REHABILITATION SETTING OT Consultation in Regards to Discharge Recommendations: N/A Frequency of therapy: 3-5 times / week If this is the last note, consider this the discharge summary CAITIE Tinsley 05/22/21 Cosigned by Chiara Fonseca OT at 05/22/2021 5:19 PM STAFF FORESTER F FORESTER F FORESTER * Anibal Lara MD - 05/22/2021 1:21 PM CST Hospitalist Progress Note Name: Deepak Alvarado Admission Date: 05/01/2021 Today's Date: 05/22/2021 Subjective: Pt seen and examined Clinical course: Overall pt condition has improved. Still on 4L per NC today 05/16: feels ok today, on 5L per NC 05/17: transferred to ICU for worsening respiratory distress requiring more O2 05/20: remains in the ICU, on Optiflow today 05/21: about the same today, Optiflow 05/22: still on Optiflow, back on Insulin gtt Objective: Vitals: 05/22/21 0900 05/22/21 0917 05/22/21 0930 05/22/21 1000 BP: 108/63 113/67 108/66 Pulse: 90 103 87 Resp: 25 15 26 Temp: TempSrc: SpO2: 100% Weight: Height: Wt Readings from Last 3 Encounters: 05/20/21 79.5 kg (175 lb 4.3 oz) 08/27/13 114.3 kg (252 lb) 10/19/12 111.6 kg (246 lb) I/O last 3 completed shifts: In: 1000 [P.O.:1000] Out: 2350 [Urine:2350] I/O this shift: In: 740 [P.O.:740] Out: 575 [Urine:575] Scheduled Meds Current Facility-Administered Medications Medication Dose Route Frequency Provider Last Rate Last Admin ??? acetaminophen (TYLENOL) tablet 650 mg 650 mg oral Q6H PRN Eleonora Duarte NP 650 mg at 05/21/21 1545 ? ? al & mag hydroxide mxhobzljtje-fccynwhqryzifuh-uhzurfplq-nystatin (MAGIC MOUTHWASH) suspension 1-1-1-1 20 mL swish & spit Q4H PRN Elena Kelly NP ??? albuterol 2.5 mg /3 mL (0.083 %) nebulizer solution 2.5 mg 2.5 mg nebulization Q4H PRN (RT) Ralf Tomlinson MD 2.5 mg at 05/17/21 0224 ??? albuterol HFA (PROVENTIL HFA,VENTOLIN HFA,PROAIR HFA) 90 mcg/actuation inhaler 8 puff 8 puff inhalation Q4H While awake (RT) Ralf Tomlinson MD 8 puff at 05/22/21 0916 ??? aspirin enteric coated tablet 81 mg 81 mg oral Daily Varsha Crowder NP 81 mg at 05/22/21 0836 ??? atorvastatin (LIPITOR) tablet 80 mg 80 mg oral Nightly Rhina Granados MD 80 mg at 05/21/212019 ??? dexAMETHasone (DECADRON) 4 mg/mL injection 6 mg 6 mg intravenous Daily Silviano Huddleston NP 6 mg at 05/22/21 0836 ??? dextrose (D10W) 10% bolus 1-500 mL 1-500 mL intravenous PRN Jose Conti MD ??? dextrose oral liquid liquid 15 g 15 g oral Q15 Min PRN Anibal Lara MD Or ??? dextrose (D10W) 10% bolus 250 mL 250 mL intravenous Q15 Min PRN Anibal Mon MD ??? docusate sodium (COLACE) capsule 100 mg 100 mg oral BID Rhina Granados MD 100 mg at 05/21/212019 ??? enoxaparin (LOVENOX) syringe 40 mg 40 mg subcutaneous Daily-2100 Rhina Granados MD 40 mg at107/22/202019 ??? glucagon injection 1 mg 1 mg intramuscular Q30 Min PRN Anibal Lara MD ??? guaiFENesin (ROBITUSSIN) 20 mg/mL oral liquid 200 mg 200 mg oral QID PRN Caleb Toth PA 200 mg at 05/21/21 0810 ??? insulin regular bolus from bag 1-10 Units 1-10 Units intravenous PRN Jose Conti MD ??? insulin regular in 0.9% sodium chloride 100 units/100 mL infusion (premix) 0-30 Units/hr intravenous Titrated Jose Conti MD 4.8 mL/hr at 05/22/21 1231 4.8 Units/hr at 05/22/21 1231 ??? midodrine (PROAMATINE) tablet 15 mg 15 mg oral TID Silviano Huddleston NP ??? ondansetron (ZOFRAN) injection 4 mg 4 mg intravenous Q6H PRN Rhina Granados MD ??? pantoprazole DR (PROTONIX) extended release tablet 40 mg 40 mg oral Daily Rhina Granados MD40 mg at 05/22/21 0836 ??? polyethylene glycol (MIRALAX) packet 17 g 17 g oral Daily PRN Rhina Granados MD ??? QUEtiapine (SEROquel) tablet 50 mg 50 mg oral Nightly Silviano Huddleston NP ??? remdesivir (VEKLURY) 100 mg in sodium chloride 0.9% 250 mL IVPB 100 mg intravenous Q24H Elena Kelly NP 270 mL/hr at 05/21/21 2357 100 mg at 05/21/21 2357 ??? sodium chloride 0.9% flush 0.5-20 mL 0.5-20 mL intra-catheter Q8H [facility] Rhina Granados MD 10 mL at 05/22/21 0506 ??? sodium phosphate - potassium phosphate (K-PHOS NEUTRAL) tablet 250 mg 250 mg oral TID with meals Silviano Huddleston NP 250 mg at 05/22/21 1220 ??? tamsulosin (FLOMAX) extended release capsule 0.4 mg 0.4 mg oral Daily with dinner Elena Kelly NP 0.4 mg at 05/21/21 1823 insulin regular, 0-30 Units/hr, Last Rate: 4.8 Units/hr (05/22/21 1231) ??? acetaminophen ? ? al & mag hydroxide inquqwnyzgx-rniqeikkwnjdjhe-yuqhrvyxf-nystatin ??? albuterol ??? dextrose ??? dextrose OR dextrose ??? glucagon ??? guaiFENesin ??? insulin regular ??? ondansetron ??? polyethylene glycol Physical Exam: General: alert, cooperative, no distress, appears stated age HEENT: Head:normacephalic, Eyes: Perrla, EOMI bilaterally, nasal and oral mucosal pink and moist Heart: normal rate, regular rhythm, normal S1, S2, no murmurs, rubs, clicks or gallops Lungs: clear to auscultation, no wheezes or rales and unlabored breathing Abdomen: soft, nontender, nondistended, no masses or organomegaly Extremities: peripheral pulses normal, no pedal edema, no clubbing or cyanosis Neuro: alert, oriented x 3, no defects noted in general exam. Lab Data Laboratory review: Chemistry CMP: Lab Results Component Value Date BUNSER 24 05/22/2021 CALCIUM 8.6 05/22/2021 CO2 22 05/22/2021 CHLORIDE 98 05/22/2021 CREATININE 0.62 (L) 05/22/2021 GLUCOSE 156 05/22/2021 GLUCOSE 227 (H) 05/22/2021 POTASSIUM 3.5 05/22/2021 SODIUM 134 (L) 05/22/2021 , CBC: Lab Results Component Value Date WBC 7.3 05/22/2021 RBC 3.05 (L) 05/22/2021 HGB 9.2 (L) 05/22/2021 HCT 28.0 (L) 05/22/2021 MCV 91.8 05/22/2021 MCH 30.2 05/22/2021 MCHC 32.9 05/22/2021 RDWCV 13.3 05/22/2021 RDWSD 44.4 05/22/2021 MPV 11.8 05/22/2021 NRBCABS 0.00 05/22/2021 , Coags: No results found for: PT, PTT, APTT, FFN, FIBRINOGEN, INR, ACTIVATEDCL, Lipids: No resultsfound for: CHOL, CHLPL, HDL, LDLCALC, TRIG, CHOLHDL, Cardiac Enzymes: No results found for: CKTOTAL, CKMB, CKMBINDEX, TROPONINT and POC Glucose: Lab Results Component Value Date GLUCOSE 156 05/22/2021 GLUCOSE 227 (H) 05/22/2021 Home Medications have been reviewed and updated on pt's list Assessment and Plan Acute resp failure - self ext 05/05/21 -Lung infiltrates - pulm vascular congestion versus pneumonia - completed Zosyn -COVID19 (+) 05/19 -started on Decadron and Remdesivir 05/19 -PRN IV Lasix -pt was on BiPAP last night, today on Optiflow -pulmonology follows Near syncope/Syncope episode, probable vaso vagal, monitor ?? Acute anterior STEMI with CAD , s/p PCI to LAD -s/p CABG x 4 05/04 given re thrombosis of existing stents -s/p IABP, removed 05/06 - ASA, ??statins, off Plavix due to hematuria, BBs on hold due to hypotension ?? Post CABG cardiogenic shock, hypotensive again - s/p??Dobutamine gtt and Levophed -now on Midodrine ?? Ventricular fibrillation - briefly on 05/03 - treated with Amiodarone and Dobutamine gtt, off them ?? Gross Hematuria ?- in a pt with hx of ??cystoscopy, -clot evacuation and transurethral resection of bladder tumor at [facility] -s/p 20??German three way catheter -holding Plavix -cysto 05/14 with clot evacuation and fulguration ? Type 2 diabetes.??- Back on Insulin gtt ?? Acute blood loss anemia ; -s/p PRBC transfusions in ICU - monitor HH, today 9.5 ?? Mild hyponatremia, monitor ?? Hx of ??Tobacco use. ?? DVT prophylaxis :Lovenox Pt will need continued inpatient management for the above medical issues. Code status: full Anibal Hughes MD [facility] Hospitalist 05/22/2021 1:21 PM F FORESTER * Ralf Tomlinson MD - 05/22/2021 11:25 AM CST Pulmonary Daily Progress Chief complaint/reason for consult: Respiratory failure. Interval History: on optiflow 75%/50L, sats 100% Alert but confused Afebrile No sputum or chest pain COVID positive 05/19/21 Presenting History: 60 yo man w COPD, DM, CAD/stents admitted 05/01/21 with chest pain. Had recent hematuria as well. Workup revealed an acute MT. Cath showed multi-vessel CAD. Had balloon pump placed. CABG x 4 done on 05/04/21. He was continued on mechanical ventilation and self extubated this AM (05/05/21). He is on multiple pressors. Sedated with precedex. Some tachypnea. A balloon pump is in place. Current tobacco use. COPD listed as prior diagnosis. No inhalers on home med list. Allergies: Allergies Allergen Reactions ??? Metoclopramide Medications: Scheduled Meds:albuterol HFA, 8 puff, inhalation, Q4H While awake (RT) aspirin, 81 mg, oral, Daily atorvastatin, 80 mg, oral, Nightly dexAMETHasone, 6 mg, intravenous, Daily docusate sodium, 100 mg, oral, BID enoxaparin, 40 mg, subcutaneous, Daily-2100 furosemide, 40 mg, intravenous, Once midodrine, 15 mg, oral, TID AC pantoprazole DR, 40 mg, oral, Daily QUEtiapine, 25 mg, oral, Nightly remdesivir, 100 mg, intravenous, Q24H sodium chloride 0.9%, 0.5-20 mL, intra-catheter, Q8H LEAH sodium phosphate - potassium phosphate, 250 mg, oral, TID with meals tamsulosin, 0.4 mg, oral, Daily with dinner Continuous Infusions:insulin regular, 0-30 Units/hr, Last Rate: 7.7 Units/hr (05/22/21 1038) PRN Meds:.??? acetaminophen ? ? al & mag hydroxide ffoavljbokw-vudcraeftugsrdc-vdaqaniqy-nystatin ??? albuterol ??? dextrose ??? dextrose OR dextrose ??? glucagon ??? guaiFENesin ??? insulin regular ??? ondansetron ??? polyethylene glycol ROS Above review of system reviewed on 05/22/2021 Vitals: Vitals: 05/22/21 0900 05/22/21 0917 05/22/21 0930 05/22/21 1000 BP: 108/63 113/67 108/66 Pulse: 90 103 87 Resp: 25 15 26 Temp: TempSrc: SpO2: 100% Weight: Height: Temp (24hrs), Av.7 ??C (98 ??F), Min:36.4 ??C (97.5 ??F), Max:36.9 ??C (98.4 ??F) FiO2 (%): [70 %-75 %] 75 % Intake/Output Summary (Last 24 hours) at 05/22/2021 1125 Last data filed at 05/22/2021 0840 Gross per 24 hour Intake 1690 ml Output 1975 ml Net -285 ml Physical Exam Constitutional: General: He is not in acute distress. Appearance: He is well-developed. HENT: Head: Normocephalic and atraumatic. Eyes: Conjunctiva/sclera: Conjunctivae normal. Neck: Thyroid: No thyromegaly. Cardiovascular: Rate and Rhythm: Normal rate and regular rhythm. Heart sounds: No murmur heard. Pulmonary: Effort: Pulmonary effort is normal. No respiratory distress. Breath sounds: Normal breath sounds. No wheezing or rales. Chest: Comments: Sternotomy incision Abdominal: General: Bowel sounds are normal. Palpations: Abdomen is soft. Skin: General: Skin is warm and dry. Neurological: Mental Status: He is alert. Lab/Radiology/Diagnostic Review: Labs: Recent Labs Lab Units 05/22/21 0349 05/21/21 0357 05/20/21 0328 05/18/21 0204 05/17/21 0333 WBC K/cumm 7.3 8.3 9.3 < > 8.7 HEMOGLOBIN g/dL 9.2* 9.5* 10.6* < > 11.3* HEMATOCRIT % 28.0* 28.7* 32.5* < > 33.8* PLATELETS K/cumm 381 355 381 < > 267 NEUTROS PCT % -- -- -- -- 78.4 LYMPHS PCT % -- -- -- -- 11.7 MONOS PCT % -- -- -- -- 9.0 EOS PCT % -- -- -- -- 0.1 < > = values in this interval not displayed. Recent Labs Lab Units 05/22/21 1035 05/22/21 0932 05/22/21 0828 05/22/21 0625 05/22/21 0349 05/21/21 2141 05/21/21 2118 05/21/21 0806 05/21/21 0413 05/19/21 0143 05/18/21 2137 05/17/21 0936 05/17/21 0333 SODIUM mmol/L -- -- -- -- 134* -- 135 -- 135 < > -- < > 133* POTASSIUM PLASMA mmol/L -- -- -- -- 3.5 -- 4.3 -- 3.2* < > -- < > 2.6* CHLORIDE mmol/L -- -- -- -- 98 -- 97 -- 97 < > -- < > 92* CO2 mmol/L -- -- -- -- 22 -- 22 -- 24 < > -- < > 22 ANIONGAP mmol/L -- -- -- -- 14 -- 16* -- 14 < > -- < > 19* GLUCOSE mg/dL -- -- -- -- 227* < > 257* < > 175 < > -- < > 157 POC GLUCOSE MONITOR mg/dL 252* 284* 225* < > -- < > -- < > -- < > -- < > -- BUN SERUM mg/dL -- -- -- -- 24 -- 31* -- 34* < > -- < > 25 CREATININE mg/dL -- -- -- -- 0.62* -- 0.72* -- 0.78* < > -- < > 1.06 CALCIUM mg/dL -- -- -- -- 8.6 -- 8.6 -- 8.6 < > -- < > 8.3* ALBUMIN g/dL -- -- -- -- -- -- -- -- -- -- 3.6 -- 3.5 ALK PHOS Units/L -- -- -- -- -- -- -- -- -- -- 86 -- 94 ALT Units/L -- -- -- -- -- -- -- -- -- -- 18 -- 20 AST Units/L -- -- -- -- -- -- -- -- -- -- 60* -- 64* BILIRUBIN TOTAL mg/dL -- -- -- -- -- -- -- -- -- -- 0.6 -- 0.7 < > = values in this interval not displayed. Recent Labs Lab Units 05/18/21195205/17/21219 PH ART 7.45 7.50* PCO2 ART mmHg 32* 27* PO2 ART mmHg 58* 72* HCO3 ART (CALC) mmol/L 23 24 BASE EXC ART mmol/L -2 -2 O2 SAT ART (JOELLE) % 89* 96* Imaging: CT chest 05/19/21: b gg inf, severe emphysema Other diagnostic tests: I have personally reviewed above laboratory findings, chest imaging, and diagnostic tests 05/22/2021 Assessment and Plan: Acute respiratory failure Acute MT w CAD s/p CABG x 4 on 05/04/21, past hx multiple stents Cardiogenic shock, resolved Cardiomyopathy EF 40% V fib COPD: severe emphysematous changes on CT Anemia Hematuria s/p cystoscopy/fulguration COVID 19, diagnosed 05/19/21, resp status began worsening 05/15/21 ?? Recs: Oxygen support, wean as able Dexamethasone started 05/19 Consider baricitinib On remdesivir Incentive spirometry Scheduled albuterol abx coverage for pna: Zosyn, completed Scheduled bronchodilators Increase activity as tolerated Chart reviewed F FORESTER * Varsha Lee, EFREN - 05/22/2021 9:15 AM CST Cardiothoracic Surgery Progress Note Deepak Alvarado 1960 Hospital DAY#21 18 days postop Urgent Coronary Artery Bypass Graft x4 Subjective: Intermittent episodes of confusion. Agitated and restless throughout the night per staff. Continues high flow oxygen via Optiflow. OBJECTIVE: Vitals: Temp: [36.4 ??C (97.5 ??F)-36.9 ??C (98.4 ??F)] 36.4 ??C (97.5 ??F) Pulse: [72-103] 87 BP: (91-122)/(56-80) 108/66 Resp: [11-36] 26 SpO2: [87 %-100 %] 100 % FiO2 (%): [70 %-75 %] 75 % Wt Readings from Last 3 Encounters: 05/20/21 79.5 kg (175 lb 4.3 oz) 08/27/13 114.3 kg (252 lb) 10/19/12 111.6 kg (246 lb) I/O last 2 completed shifts: In: 1000 [P.O.:1000] Out: 2350 [Urine:2350] Physical Exam Vitals and nursing note reviewed. Constitutional: General: He is not in acute distress. Appearance: Normal appearance. HENT: Head: Normocephalic and atraumatic. Nose: Nose normal. Cardiovascular: Rate and Rhythm: Normal rate and regular rhythm. Heart sounds: No murmur heard. Comments: NSR 97 Pulmonary: Effort: No accessory muscle usage. Skin: General: Skin is warm and dry. Comments: Sternal incision is well healed and approximated (steri-strips removed) Sternum is stable to cough Rt SVG site ZULEIKA with steri-strips C/D/I Neurological: Mental Status: He is alert. Access: picc Recent Labs Lab Units 05/22/21 0349 05/21/21 0357 05/20/21 0328 WBC K/cumm 7.3 8.3 9.3 HEMOGLOBIN g/dL 9.2* 9.5* 10.6* HEMATOCRIT % 28.0* 28.7* 32.5* PLATELETS K/cumm 381 355 381 Recent Labs Lab Units 05/22/21 0349 05/21/21 2118 05/21/21 0413 SODIUM mmol/L 134* 135 135 POTASSIUM PLASMA mmol/L 3.5 4.3 3.2* CHLORIDE mmol/L 98 97 97 CO2 mmol/L 22 22 24 BUN SERUM mg/dL 24 31* 34* CREATININE mg/dL 0.62* 0.72* 0.78* CALCIUM mg/dL 8.6 8.6 8.6 Recent Labs Lab Units 05/18/21195205/17/21 022 PH ART 7.45 7.50* PCO2 ART mmHg 32* 27* PO2 ART mmHg 58* 72* BASE EXC ART mmol/L -2 -2 Drips: None Imaging: None to review. Assessment and Plan: 60 y.o. male 18 Days Post-Op s/p urgent Coronary Artery Bypass Graft x4 by Dr. Granados [facility]: BNP 2233 this morning. Lasix 40 IV x1. Continue midodrine for BP support. SBP 105-118 Pulm: Continue optiflow as necessary. Pulmonology following. CoVID (+) 05/19/2021--started on Remdesivir and IV steroids. GI: Bowel Regimen. Regular diet +supplements. Renal: BUN/Scr 24/0.62 ID: ID following. Continue remdesivir and IV steroids. D/L/T: PICC Prophylaxis: Protonix and Lovenox Dispo: ICU Varsha Lee NP Cardiothoracic Surgery [place] C: [phone] [facility] [employer] Cosigned by Rhina Granados MD at 05/22/2021 3:15 PM STAFF FORESTER F FORESTER F FORESTER * Angelo Vance MD - 05/22/2021 9:04 AM CST Infectious Disease Deepak Alvarado Admit Date: 05/01/2021 LOS: 21 Days Clinical Course Still has shortness of breath. New Symptoms Positive SOB, no Cp, no nvd, no rashes Data Vitals: 05/22/21 0600 05/22/21 0615 05/22/21 0630 05/22/21 0645 BP: 114/66 110/67 108/80 Pulse: 82 83 79 72 Resp: 24 25 24 23 Temp: TempSrc: SpO2: 92% 93% Weight: Height: Temp (24hrs), Av.7 ??C (98.1 ??F), Min:36.4 ??C (97.6 ??F), Max:36.9 ??C (98.4 ??F) Recent Labs Lab Units 05/22/21 0349 05/21/21 0357 05/20/21 0328 WBC K/cumm 7.3 8.3 9.3 HEMOGLOBIN g/dL 9.2* 9.5* 10.6* HEMATOCRIT % 28.0* 28.7* 32.5* PLATELETS K/cumm 381 355 381 Recent Labs Lab Units 05/22/21 0349 05/21/21211705/21/21211705/21/2141205/21/21412 BUN SERUM mg/dL 24 -- 31* -- 34* CREATININE mg/dL 0.62* < > 0.72* < > 0.78* < > = values in this interval not displayed. Scheduled Meds:albuterol HFA, 8 puff, inhalation, Q4H While awake (RT) aspirin, 81 mg, oral, Daily atorvastatin, 80 mg, oral, Nightly dexAMETHasone, 6 mg, intravenous, Daily docusate sodium, 100 mg, oral, BID enoxaparin, 40 mg, subcutaneous, Daily-2100 midodrine, 15 mg, oral, TID AC pantoprazole DR, 40 mg, oral, Daily QUEtiapine, 25 mg, oral, Nightly remdesivir, 100 mg, intravenous, Q24H sodium chloride 0.9%, 0.5-20 mL, intra-catheter, Q8H LEAH sodium phosphate - potassium phosphate, 250 mg, oral, TID with meals tamsulosin, 0.4 mg, oral, Daily with dinner Continuous Infusions:insulin regular, 0-30 Units/hr, Last Rate: 3.3 Units/hr (05/22/21 0833) PRN Meds:.??? acetaminophen ? ? al & mag hydroxide mgqesxdkpev-ituylmbbhkwyxcq-wulgzxwgk-nystatin ??? albuterol ??? dextrose ??? dextrose OR dextrose ??? glucagon ??? guaiFENesin ??? insulin regular ??? ondansetron ??? polyethylene glycol Exam General appearance: alert, cooperative, no distress HEENT: (-)icterus, Oropharnyx is normal, NCAT Neck: No palpable LN Lungs: breath sounds normal and symmetric; minimal respiratory effort, no r/w/c Heart: regular rhythm, normal S1 and S2, no m/r/g Abdomen: soft without mass, non-tender, +bowel sounds, no HSM Skin: (-)new rashes, no ulcerations MSK: no gross deformities, FROM Vascular: no Edema, pulses present bilaterally Neuro: No focal deficits Psych: Appropriate mood and affect ?? Cultures 05/02 COVID 19- 05/19 COVID 19 positive ?? 05/05 tracheal aspirate culture with yeast ?? Assessment: 1. Acute respiratory failure 2. COVID-19 infection 3. Status post CABG 4. Hematuria ?? Plan: 1. Continue treatment for COVID including remdesivir and IV steroids 2. Continue supportive care Will sign off please call with any questions or changes Angelo Vance MD 05/22/2021 F FORESTER * Nalini Clayton MD - 05/22/2021 8:04 AM CST [facility] - Cardiology [facility] Progress Note Admit Date: 05/01/2021 5:20 PM @HDAYS@ PCP: Unknown, Notinfile Patient seen and examined Chart , telemtry reviewed Symptoms Patient denies chest pain, palpitations, sweating or syncope.Dyspenic , restless overnight O2 requirements increased to 80L optiflo Data Vitals: 05/22/21 0600 05/22/21 0615 05/22/21 0630 05/22/21 0645 BP: 114/66 110/67 108/80 Pulse: 82 83 79 72 Resp: 24 25 24 23 Temp: TempSrc: SpO2: 92% 93% Weight: Height: Intake/Output Summary (Last 24 hours) at 05/22/2021 0804 Last data filed at 05/22/2021 0510 Gross per 24 hour Intake 550 ml Output 2350 ml Net -1800 ml Lab Results Component Value Date WBC 7.3 05/22/2021 WBC 8.3 05/21/2021 WBC 9.3 05/20/2021 HGB 9.2 (L) 05/22/2021 HGB 9.5 (L) 05/21/2021 HGB 10.6 (L) 05/20/2021 HCT 28.0 (L) 05/22/2021 HCT 28.7 (L) 05/21/2021 HCT 32.5 (L) 05/20/2021 Lab Results Component Value Date SODIUM 134 (L) 05/22/2021 SODIUM 135 05/21/2021 SODIUM 135 05/21/2021 POTASSIUM 3.5 05/22/2021 POTASSIUM 4.3 05/21/2021 POTASSIUM 3.2 (L) 05/21/2021 CHLORIDE 98 05/22/2021 CHLORIDE 97 05/21/2021 CHLORIDE 97 05/21/2021 CO2 22 05/22/2021 CO2 22 05/21/2021 CO2 24 05/21/2021 CREATININE 0.62 (L) 05/22/2021 CREATININE 0.72 (L) 05/21/2021 CREATININE 0.78 (L) 05/21/2021 GLUCOSE 163 05/22/2021 GLUCOSE 227 (H) 05/22/2021 GLUCOSE 266 (H) 05/22/2021 GLUCOSE 268 (H) 05/21/2021 GLUCOSE 257 (H) 05/21/2021 GLUCOSE 175 05/21/2021 CALCIUM 8.6 05/22/2021 CALCIUM 8.6 05/21/2021 CALCIUM 8.6 05/21/2021 No results found for: PTT No results found for: PT No results found for: INR No results found for: BNP No components found for: TROPONIN No results found for: CHOL, TRIG, HDL, LDLCALC No results found for: ALBUMIN, ALKPHOS, ALT, AST No components found for: MAGMGDL No results found for: TSH No results found for: T3FREE No results found for: [id number] Meds MEDICATIONS FOR CURRENT ENCOUNTER: SCHEDULED MEDICATIONS: Scheduled Medications Medication Dose Route Frequency ??? albuterol HFA (PROVENTIL HFA,VENTOLIN HFA,PROAIR HFA) 90 mcg/actuation inhaler 8 puff 8 puff inhalation Q4H While awake (RT) ??? aspirin enteric coated tablet 81 mg 81 mg oral Daily ??? atorvastatin (LIPITOR) tablet 80 mg 80 mg oral Nightly ??? dexAMETHasone (DECADRON) 4 mg/mL injection 6 mg 6 mg intravenous Daily ??? docusate sodium (COLACE) capsule 100 mg 100 mg oral BID ??? enoxaparin (LOVENOX) syringe 40 mg 40 mg subcutaneous Daily-2100 ??? midodrine (PROAMATINE) tablet 15 mg 15 mg oral TID AC ??? pantoprazole DR (PROTONIX) extended release tablet 40 mg 40 mg oral Daily ??? potassium chloride (KLOR-CON) packet 40 mEq 40 mEq oral Once ??? QUEtiapine (SEROquel) tablet 25 mg 25 mg oral Nightly ??? remdesivir (VEKLURY) 100 mg in sodium chloride 0.9% 250 mL IVPB 100 mg intravenous Q24H ??? sodium chloride 0.9% flush 0.5-20 mL 0.5-20 mL intra-catheter Q8H LEAH ??? sodium phosphate - potassium phosphate (K-PHOS NEUTRAL) tablet 250 mg 250 mg oral TID with meals ??? tamsulosin (FLOMAX) extended release capsule 0.4 mg 0.4 mg oral Daily with dinner ?? CONTINUOUS MEDICATIONS: Continuous Medications Medication Dose Last Rate ??? insulin regular in 0.9% sodium chloride 100 units/100 mL infusion (premix) 0-30 Units/hr ? PRN MEDICATIONS: PRN Medications Medication Dose Route Frequency Last Admin ??? acetaminophen (TYLENOL) tablet 650 mg 650 mg oral Q6H PRN 650 mg at 05/21/21 1545 ? ? al & mag hydroxide tjmuclpyjoj-vemenrqdeslhpqu-pyoatqzyv-nystatin (MAGIC MOUTHWASH) suspension 1-1-1-1 20 mL swish & spit Q4H PRN ??? albuterol 2.5 mg /3 mL (0.083 %) nebulizer solution 2.5 mg 2.5 mg nebulization Q4H PRN (RT) 2.5mg at 05/17/21 0224 ??? dextrose (D10W) 10% bolus 1-500 mL 1-500 mL intravenous PRN ??? dextrose oral liquid liquid 15 g 15 g oral Q15 Min PRN Or ??? dextrose (D10W) 10% bolus 250 mL 250 mL intravenous Q15 Min PRN ??? glucagon injection 1 mg 1 mg intramuscular Q30 Min PRN ??? guaiFENesin (ROBITUSSIN) 20 mg/mL oral liquid 200 mg 200 mg oral QID PRN 200 mg at 05/21/21 0810 ??? insulin regular bolus from bag 1-10 Units 1-10 Units intravenous PRN ??? ondansetron (ZOFRAN) injection 4 mg 4 mg intravenous Q6H PRN ??? polyethylene glycol (MIRALAX) packet 17 g 17 g oral Daily PRN Allergies Allergen Reactions ??? Metoclopramide Review of Systems: All systems were reviewed. Pertinent positives are mentioned above. Exam Not done Assessment /Plan CAD + STEMI s/p CABG -- Cardiac cath 05/01 with 40% distal LM, 100% prox LAD, 90% prox Cx, 50% prox and distal RCA -- Echo 05/02 EF 40%, CABGx4 05/04/2021 -- SR 80s on tele -- stable, follow ?? COVID 19 -- dx 05/20/2021 -- on Remdesivir and dexamethason ?? Acute Respiratory failure -- Lung infiltrates per CXR on 05/19, completed Abx -- transferred to ICU 05/17 for increasing oxygen requirments -- on Optiflow -- Increased O2 requirement check BNP to exclude contribution of CHF -- Pulm following ?? Hematuria -- cysto 05/14 -- resolved ?? Urinary retention -- osorio replaced today -- on Tamsulosin ?? S/p Cardiogenic shock + Hypotension -- off pressors -- BP 91/61 -- on Midodrine q6 -- follow ?? Hypokalemia -- on K supplement -- follow ?? Hx V. Fib -- brief on 05/03 -- treated w/ AMiodarone and Dobutamine gtt, resolved -- SR 80s on tele ?? HLD -- on Statin ?? DM -- glycemic protocol w/ SSI ?? COPD ?? DVT prophylaxis -- Lovenox, SCDs ?? Discussed with ICU team ?? Nalini Clayton MD F FORESTER * Silviano Huddleston NP - 05/22/2021 7:44 AM CST Images from the original note were not included. Critical Care Medicine Daily Progress Team: Community AM Subjective Patient is a 60 y.o. y/o male admitted on 05/01/2021 5:20 PM with the following indication(s) for ICU care COVID PNA. Interval History: -insulin gtt -add end date to dexamethasone -updated -midodrine spaced out to reduce administration over night -talked to dietary to withhold supplements with high carbs and sugars -lasix 40mg x1 per CTS, pBNP 2233 HPI (05/17) 60M smoker hx copd, obesity, pvd, htn, hld, dm2 & CAD s/p multiple LAD stents who p/w anterior STEMI after bladder procedure on 04/29. [facility] was [facility] to [facility] where they found in-stent thrombosis and an angioplasty was performed but stent could not be placed. A balloon pump was placed and the patient was transferred to the CVU. CT-surgery was consulted for CABG. The patie nt underwent a 4 vessel cabg on 05/04 w/ Dr. Granados (MAE->LAD, Saph vein->diag & obtuse, Saph->PDA). He developed rebleeding from his bladder tumor and this was adressed by urology. Heself extubated the next day after his CABG. His osorio was removed yesterday and he is currently post op day 11 from the CABG. He has been getting diuresed on the floor but has unfortunately had increasing oxygen requirement for the last 24 hours despite diuresis. He is currently on a non-rebreatherand being transferred to the ICU.? Hospital Course 04/29 Cystoscopy at [facility] 04/30 STEMI, [facility] -> instent thrombosis, angioplasty, IABP, transfer to [facility] 05/04/21: Increased blood clot from osorio and obstruction with pain.?? 05/05/21: Brief asystole o/n w turning. Stable after. Self extubated in AM.?? 05/06/21: NAEON. Maintained on CPAP and optiflow.?? 05/07/21: NAEON. Up in chair at time of exam. TTF 05/10 near syncopal episode 05/14 cystoscopy with clot removal and fulguration of bleeding 05/17 readmit to ICU with pulmonary edema, lasix drip 05/18 Nasal cannula, on/off pressors, Negative VQ, ACTH Stim unremarkable 05/19 COVID positive, 15 L/NC, Remdesivir, dexamethasone 05/21 coude catheter placed, remains on optiflow, updated 05/22 increase seroquel, on optiflow 40L 75% Scheduled Medications: albuterol HFA, 8 puff, inhalation, Q4H While awake (RT) aspirin, 81 mg, oral, Daily atorvastatin, 80 mg, oral, Nightly dexAMETHasone, 6 mg, intravenous, Daily docusate sodium, 100 mg, oral, BID enoxaparin, 40 mg, subcutaneous, Daily-2100 insulin glargine, 8 Units, subcutaneous, QAM insulin lispro, 0-12 Units, subcutaneous, 5x daily (with meals, nightly, & 0200) insulin NPH, 10 Units, subcutaneous, Daily midodrine, 15 mg, oral, Q6H pantoprazole DR, 40 mg, oral, Daily QUEtiapine, 25 mg, oral, Nightly remdesivir, 100 mg, intravenous, Q24H sodium chloride 0.9%, 0.5-20 mL, intra-catheter, Q8H LEAH sodium phosphate - potassium phosphate, 250 mg, oral, TID with meals tamsulosin, 0.4 mg, oral, Daily with dinner Continuous Medications: insulin regular, 0-30 Units/hr PRN Medications: ??? acetaminophen ? ? al & mag hydroxide gufktminyva-logkeahstffvvev-godtswyqv-nystatin ??? albuterol ??? dextrose ??? dextrose OR dextrose ??? glucagon ??? guaiFENesin ??? insulin regular ??? ondansetron ??? polyethylene glycol Objective Vitals: Most Recent: Vitals: 05/22/21 0645 BP: 108/80 Pulse: 72 Resp: 23 Temp: SpO2: 24hr Min/Max: Temp Min: 36.4 ??C (97.6 ??F) Max: 36.9 ??C (98.4 ??F) Pulse Min: 72 Max: 95 BP Min: 83/48 Max: 122/68 Resp Min: 11 Max: 36 SpO2 Min: 87 % Max: 98 % LDA: PICC Double Lumen 05/18/21 Non-tunneled Power #1 Red, #2 Purple, Right Upper arm;Brachial (Active) Placement Date/Time: 05/18/21 1200 Catheter Time Out Checklist Completed: Yes Hand Hygiene Performed: Yes Site Prep: Alcohol;Betadine;Chlorhexidine Site Prep Agent has Completely Dried Before Insertion: Yes All 5 Sterile Barriers or Appropriate ... Number of days: 2 Vent settings: FiO2 (%): [70 %-75 %] 75 % Hemodynamic parameters for last 24 hours: I/O: Date 05/21/21699 - 05/22/2165805/22/21699 - 05/23/2159 Shift 5998-9301 9315-3808 24 Hour Total 3055-1876 8482-8449 24 Hour Total INTAKE P.O. 50 500 550 Shift Total(mL/kg) 50(0.6) 500(6.3) 550(6.9) OUTPUT Urine(mL/kg/hr) 1450(1.5) 900(0.9) 2350(1.2) Shift Total(mL/kg) 1450(18.2) 900(11.3) 2350(29.6) NET -1400 -400 -1800 Weight (kg) 79.5 79.5 79.5 79.5 79.5 79.5 Physical Exam: Neuro- A&Ox4, FC, PERRL, weak CV- NSR, normotensive Resp- Diminished to auscultation, on optiflow GI- soft, n/d, n/t Msk- warm, palpable pulses Drain- none Wound- sternotomy, R leg incision Lab/Radiology/Diagnostic Review: Laboratory review: Lab results in the last 24 hours: Recent Results (from the past 24 hour(s)) POCT glucose Collection Time: 05/21/21 8:06 AM Result Value Ref Range Glucose, POC 177 70 - 199 mg/dL POCT glucose Collection Time: 05/21/21 11:59 AM Result Value Ref Range Glucose, POC 218 (H) 70 - 199 mg/dL POCT glucose Collection Time: 05/21/21 3:46 PM Result Value Ref Range Glucose, POC 318 (H) 70 - 199 mg/dL POCT glucose Collection Time: 05/21/21 8:14 PM Result Value Ref Range Glucose, POC 312 (H) 70 - 199 mg/dL Calcium, ionized Collection Time: 05/21/21 9:18 PM Result Value Ref Range Ca, ionized, bld 4.70 4.60 - 5.20 mg/dL Ca, ionized, bld, calc 4.75 4.60 - 5.20 mg/dL Magnesium Collection Time: 05/21/21 9:18 PM Result Value Ref Range Magnesium 2.3 1.4 - 2.5 mg/dL Phosphorus Collection Time: 05/21/21 9:18 PM Result Value Ref Range Phosphorus, pl 2.7 2.3 - 4.5 mg/dL Basic metabolic panel Collection Time: 05/21/21 9:18 PM Result Value Ref Range Sodium 135 135 - 145 mmol/L Potassium, pl 4.3 3.3 - 4.9 mmol/L Chloride 97 97 - 110 mmol/L CO2 22 22 - 32 mmol/L Anion gap 16 (H) 2 - 15 mmol/L BUN 31 (H) 8 - 25 mg/dL Creatinine 0.72 (L) 0.80 - 1.30 mg/dL Glucose 257 (H) 70 - 199 mg/dL Calcium 8.6 8.5 - 10.3 mg/dL eGFR Collection Time: 05/21/21 9:18 PM Result Value Ref Range eGFR 102 mL/min/1.73 m2 POCT glucose Collection Time: 05/21/21 9:41 PM Result Value Ref Range Glucose, POC 224 (H) 70 - 199 mg/dL POCT glucose Collection Time: 05/21/21 11:39 PM Result Value Ref Range Glucose, POC 268 (H) 70 - 199 mg/dL POCT glucose Collection Time: 05/22/21 2:27 AM Result Value Ref Range Glucose, POC 266 (H) 70 - 199 mg/dL Phosphorus Collection Time: 05/22/21 3:49 AM Result Value Ref Range Phosphorus, pl 2.2 (L) 2.3 - 4.5 mg/dL Magnesium Collection Time: 05/22/21 3:49 AM Result Value Ref Range Magnesium 2.1 1.4 - 2.5 mg/dL CBC without differential Collection Time: 05/22/21 3:49 AM Result Value Ref Range WBC 7.3 3.8 - 9.9 K/cumm Hgb 9.2 (L) 13.0 - 17.5 g/dL Hct 28.0 (L) 38.9 - 50.3 % Plt 381 150 - 400 K/cumm MPV 11.8 9.1 - 12.3 fL RBC 3.05 (L) 4.30 - 5.80 M/cumm MCV 91.8 81.3 - 96.4 fL MCH 30.2 27.1 - 33.3 pg MCHC 32.9 32.3 - 35.7 g/dL RDW CV 13.3 11.1 - 14.9 % RDW SD 44.4 35.7 - 48.1 fL NRBC abs 0.00 0.00 - 0.01 K/cumm Basic metabolic panel Collection Time: 05/22/21 3:49 AM Result Value Ref Range Sodium 134 (L) 135 - 145 mmol/L Potassium, pl 3.5 3.3 - 4.9 mmol/L Chloride 98 97 - 110 mmol/L CO2 22 22 - 32 mmol/L Anion gap 14 2 - 15 mmol/L BUN 24 8 - 25 mg/dL Creatinine 0.62 (L) 0.80 - 1.30 mg/dL Glucose 227 (H) 70 - 199 mg/dL Calcium 8.6 8.5 - 10.3 mg/dL eGFR Collection Time: 05/22/21 3:49 AM Result Value Ref Range eGFR 109 mL/min/1.73 m2 POCT glucose Collection Time: 05/22/21 6:25 AM Result Value Ref Range Glucose, POC 163 70 - 199 mg/dL CT Chest WO Contrast Result Date: 05/19/2021 1. STATUS POST MEDIAN STERNOTOMY. 2. RIGHT-SIDED PICC CATHETER IN PLACE. 3. CORONARY ARTERY DISEASE. 4. MODERATE EMPHYSEMATOUS CHANGES IN THE LUNGS. 5. PATCHY ALVEOLAR INFILTRATE IN BOTH LUNGS. THIS CAN BE SEEN WITH A VIRAL-TYPE PNEUMONITIS. Electronically signed by: Humphrey Mojica M.D. XR Chest 1 View Result Date: 05/19/2021 Persistent ill-defined patchy left perihilar upper and lower lobe alveolar infiltrate and mild on the right. Electronically signed by: Joie Bernardo M.D. Plan: Neuro: #Acute pain - Tylenol ?? #Insomnia - Seroquel, increased to 50mg CV: #Severe multivessel CAD s/p CABG #STEMI #HFrEF, chronic - S/p CABG by MD Granados - CCL (04/30) -> in-stent restenosis, unsuccessful angioplasty, IABP placed - ASA/Atorvastatin, holding plavix - Unable to tolerate ACEi or BB at this time - Cardiology following - CTS following - TTE (05/17) -> EF 35-40% ?? Pulmonary: #Acute hypoxic respiratory failure 2/2 #COVID 19 pneumonia - Increasing O2 overnight -> up to 15L/NC, NPPV as needed - V/Q (05/18) -> low probability for PE - CT Chest (05/19) -> c/f viral pneumonia - COVID 19 positive (05/19) - Dexamethasone day 08/27 - Remdesivir day 08/22 - Aggressive pulmonary hygiene, IS, OOBTC in am - Maintain sats> 92% -optiflow 40L , 75% - Sniff test pending ?? GI: Diet: Heart healthy PUD PPx: Pantoprazole Bowel regimen: Docusate ?? Endo: #Hyperglycemia, likely 2/2 stress response - Glycemic control - insulin gtt - Frequent accuchecks - Endocrine following ?? Renal: #ISRRAEL - BUN/Cr 24/0.62 - FBG euvolemic, heavily diuresis previous days - trend renal function, avoid nephrotoxins, renal dose medications - optimize electrolytes with caution to renal function ?-goal K ~4, Mg >??2.2, phos >??3, iCAL >??4.5 ?-provide supplement as needed ?-AM BMP and electrolytes check ?? #Hematuria 2/2 #Bladder tumor - (05/14) Cystoscopy for clot evacuation and cessation of bleeding sites - 05/21 Coud?? placed - Bladder scan 700ml - Urology following - Flomax ?? Heme: #ABLA 2/2 surgery - No active signs of bleeding - Transfuse for hgb < 8 - CBC in am, current hgb 9.2 ?? DVT PPX: SCD's/Lovenox ?? ID: #COVID 19 pneumonia - WBC: 7.3 - Tmax: 36.9 - Remdesivir - Dexamethasone - CBC in am - Trend WBC and fever curve ICU standards of care: Physical therapy/Activity: OOBTC Access: PICC Goals of care: Full code Community AM Assessment and plan has been reviewed with attending, Dr. German Huddleston NP Cosigned by Alexandru Porter MD at 05/29/2021 6:01 PM STAFF FORESTER F FORESTER F FORESTER * Yves Weinberg MD - 05/21/2021 7:23 PM CST Nephrology Progress Note [facility] SUBJECTIVE 05/21/21 Pt seen/examined. All labs reviewed. Off lasix drip. Still dyspneic. Renal fn better. Na 135. 05/20/21 Pt seen/examined. All labs and data reviewed. COVID pos. On Dex and remdisivir. On lasix drip. Na 130, Cr 1.44. 05/19 Cr 1.41 Na 130. Started on Corlanor. Appears stable. BP remains very soft. UO not accurate. 05/17 Transferred to ICU for hi O2 requirements. Has left nostril epistaxis. On low dose pressors and lasix and insulin drip. Na 128, should improve with loop diuresis. Cr 1.2. 05/16 Creatinine stable and sodium trending up.On IV lasix,lytes wnl.Osorio out,having some problems with retention- nurses in contact with urology,doing bladder scans. 05/15/21 Doing fair. Osorio out. Has not voided yet. Na 131 with loop diuresis and improved. All labs and data reviewed. Excellent UO. Doing fair. Some flank pain and mild dyspnea. Na 127 and a little lower. BP better. Agreeable to cysto, but urology planning on conservative tx. Will start loop diuresis. OBJECTIVE Vitals: Vitals: 05/21/21 1645 05/21/21 1700 05/21/21 1730 05/21/21 1800 BP: 110/67 114/72 112/66 Pulse: 94 92 85 Resp: 30 18 17 Temp: 36.9 ??C (98.4 ??F) TempSrc: SpO2: 96% Weight: Height: Intake/Output Summary (Last 24 hours) at 05/21/2021 1923 Last data filed at 05/21/2021 1830 Gross per 24 hour Intake 50 ml Output 1450 ml Net -1400 ml REVIEW OF SYSTEMS Review of Systems Epistaxis, dyspnea. Constitutional: Negative. HENT: Negative. Eyes: Negative. Respiratory: Negative. Cardiovascular: Negative. Gastrointestinal: Negative. Genitourinary: Negative. Musculoskeletal: Negative. Skin: Negative. Allergic/Immunologic: Negative. Hematological: Negative. All other systems reviewed and are negative. PHYSICAL EXAM Physical Exam Constitutional: Appears well-developed. O2 on HENT: wnl Head: Normocephalic. Eyes: Pupils are equal, round, and reactive to light. Neck: Normal range of motion. Neck supple. Cardiovascular: Normal rate. Pulmonary/Chest: Effort normal and breath sounds normal. Abdominal: Soft. NT,active BS Musculoskeletal: Normal range of motion. Neurological: Alert, oriented. Skin: Skin is warm. Nursing note and vitals reviewed. MEDICATIONS Current Facility-Administered Medications: ??? acetaminophen (TYLENOL) tablet 650 mg, 650 mg, oral, Q6H PRN, Eleonora Duarte NP, 650 mg at 05/21/21 1545 ? ? al & mag hydroxide hdudhngtutw-vnervqjbqizutzd-kpunfykre-nystatin (MAGIC MOUTHWASH) suspension 1-1-1-1, 20 mL, swish & spit, Q4H PRN, Elena Kelly NP ??? albuterol 2.5 mg /3 mL (0.083 %) nebulizer solution 2.5 mg, 2.5 mg, nebulization, Q4H PRN (RT),Ralf Tomlinson MD, 2.5 mg at 05/17/21 0224 ??? albuterol HFA (PROVENTIL HFA,VENTOLIN HFA,PROAIR HFA) 90 mcg/actuation inhaler 8 puff, 8 puff, inhalation, Q4H While awake (RT), Ralf Tomlinson MD, 8 puff at 05/21/21 1645 ??? aspirin enteric coated tablet 81 mg, 81 mg, oral, Daily, Varsha Crowder NP, 81 mg at 05/21/21 0810 ??? atorvastatin (LIPITOR) tablet 80 mg, 80 mg, oral, Nightly, Rhina Granados MD, 80 mg at 05/20/21 2054 ??? dexAMETHasone (DECADRON) 4 mg/mL injection 6 mg, 6 mg, intravenous, Daily, Elena Kelly, EFREN, 6 mg at 05/21/21 0811 ??? dextrose oral liquid liquid 15 g, 15 g, oral, Q15 Min PRN OR dextrose (D10W) 10% bolus 250 mL, 250 mL, intravenous, Q15 Min PRN, Anibal Lara MD ??? docusate sodium (COLACE) capsule 100 mg, 100 mg, oral, BID, 100 mg at 05/21/21 0810 OR [DISCONTINUED] docusate (COLACE) 10 mg/mL oral liquid 100 mg, 100 mg, feeding tube, BID, Rhina Granados MD, 100 mg at 05/05/21 0842 ??? enoxaparin (LOVENOX) syringe 40 mg, 40 mg, subcutaneous, Daily-2100, Rhina Granados MD, 40 mg at 05/20/212053 ??? glucagon injection 1 mg, 1 mg, intramuscular, Q30 Min PRN, Anibal Lara MD ??? guaiFENesin (ROBITUSSIN) 20 mg/mL oral liquid 200 mg, 200 mg, oral, QID PRN, Caleb Toth PA, 200 mg at 05/21/21 08 ??? insulin glargine (LANTUS, SEMGLEE) 100 unit/mL injection 8 Units, 8 Units, subcutaneous, QAM, Abelino Leblanc MD, 8 Units at 05/21/21 0811 ??? insulin lispro (HumaLOG, ADMELOG) 100 unit/mL injection 0-12 Units, 0-12 Units, subcutaneous, 5x daily (with meals, nightly, & 0200), Abelino Leblanc MD, 6 Units at 05/21/211823 ??? [START ON 05/22/2021] insulin NPH (HumuLIN N, NovoLIN N) 100 unit/mL injection 10 Units, 10 Units, subcutaneous, Daily, Silviano Huddleston NP ??? midodrine (PROAMATINE) tablet 15 mg, 15 mg, oral, Q6H, Rhina Granados MD, 15 mg at ??? ondansetron (ZOFRAN) injection 4 mg, 4 mg, intravenous, Q6H PRN, Rhina Granados MD ??? pantoprazole DR (PROTONIX) extended release tablet 40 mg, 40 mg, oral, Daily, Rhina Granados MD, 40 mg at 05/21/21 0810 ??? polyethylene glycol (MIRALAX) packet 17 g, 17 g, oral, Daily PRN, Rhina Granados MD ??? QUEtiapine (SEROquel) tablet 25 mg, 25 mg, oral, Nightly, Rhina Granados MD, 25 mg at 05/20/212053 ??? remdesivir (VEKLURY) 100 mg in sodium chloride 0.9% 250 mL IVPB, 100 mg, intravenous, Q24H, Elena Kelly NP, Last Rate: 270 mL/hr at 05/20/212315, 100 mg at 05/20/212315 ??? sodium chloride 0.9% flush 0.5-20 mL, 0.5-20 mL, intra-catheter, Q8H LEAH, Rhina Granados MD, 10 mL at 05/21/21 08 ??? sodium phosphate - potassium phosphate (K-PHOS NEUTRAL) tablet 250 mg, 250 mg, oral, TID with meals, Silviano Huddleston NP, 250 mg at 05/21/211822 ??? tamsulosin (FLOMAX) extended release capsule 0.4 mg, 0.4 mg, oral, Daily with dinner, Elena Kelly NP, 0.4 mg at 05/21/211822 Lab/Radiology/Diagnostic Review: Recent Results (from the past 24 hour(s)) POCT glucose Collection Time: 05/20/21 7:55 PM Result Value Ref Range Glucose, POC 207 (H) 70 - 199 mg/dL POCT glucose Collection Time: 05/21/21 2:57 AM Result Value Ref Range Glucose, POC 169 70 - 199 mg/dL CBC without differential Collection Time: 05/21/21 3:57 AM Result Value Ref Range WBC 8.3 3.8 - 9.9 K/cumm Hgb 9.5 (L) 13.0 - 17.5 g/dL Hct 28.7 (L) 38.9 - 50.3 % Plt 355 150 - 400 K/cumm MPV 11.6 9.1 - 12.3 fL RBC 3.20 (L) 4.30 - 5.80 M/cumm MCV 89.7 81.3 - 96.4 fL MCH 29.7 27.1 - 33.3 pg MCHC 33.1 32.3 - 35.7 g/dL RDW CV 13.2 11.1 - 14.9 % RDW SD 43.7 35.7 - 48.1 fL NRBC abs 0.00 0.00 - 0.01 K/cumm Phosphorus Collection Time: 05/21/21 4:13 AM Result Value Ref Range Phosphorus, pl 2.1 (L) 2.3 - 4.5 mg/dL Magnesium Collection Time: 05/21/21 4:13 AM Result Value Ref Range Magnesium 2.3 1.4 - 2.5 mg/dL Basic metabolic panel Collection Time: 05/21/21 4:13 AM Result Value Ref Range Sodium 135 135 - 145 mmol/L Potassium, pl 3.2 (L) 3.3 - 4.9 mmol/L Chloride 97 97 - 110 mmol/L CO2 24 22 - 32 mmol/L Anion gap 14 2 - 15 mmol/L BUN 34 (H) 8 - 25 mg/dL Creatinine 0.78 (L) 0.80 - 1.30 mg/dL Glucose 175 70 - 199 mg/dL Calcium 8.6 8.5 - 10.3 mg/dL eGFR Collection Time: 05/21/21 4:13 AM Result Value Ref Range eGFR 99 mL/min/1.73 m2 POCT glucose Collection Time: 05/21/21 8:06 AM Result Value Ref Range Glucose, POC 177 70 - 199 mg/dL POCT glucose Collection Time: 05/21/21 11:59 AM Result Value Ref Range Glucose, POC 218 (H) 70 - 199 mg/dL POCT glucose Collection Time: 05/21/21 3:46 PM Result Value Ref Range Glucose, POC 318 (H) 70 - 199 mg/dL XR Chest 1 View - Portable - in AM Result Date: 05/11/2021 Narrative: EXAMINATION: XR CHEST 1 VIEW HISTORY: The patient is a 60-year-old male who has had cardiac surgery. Comparison made with the previous study dated 05/10/2021. TECHNIQUE: AP portable view of the chest. FINDINGS: Lungs clear. Heart not enlarged. Aortic atherosclerosis. No failure. The right IJ [place] catheter has been retracted with its tip in the distal superior vena cava. Impression: IMPRESSION: No failure. Electronically signed by: Elvira Blackman M.D. XR Chest 1 View - Portable - in AM Result Date: 05/10/2021 Narrative: EXAMINATION: XR CHEST 1 VIEW DATE: 05/10/2021 2:40 AM COMPARISON: 05/09/2021 HISTORY: 60-year-old man cardiac surgery follow-up FINDINGS:Compared with study the previous day, significant improvement. There is cardiomegaly with postsurgical changes with continued and decreasing failure. Bibasilar atelectasis with left pleural fluid decreasing. No pneumothorax. [place] catheter remainsin place Impression: Decreasing failure, atelectasis and left effusion. Electronically signed by: Deandre Lomeli M.D. XR Chest 1 View - Portable - in AM Result Date: 05/09/2021 Narrative: EXAMINATION: XR CHEST 1 VIEW DATE: 05/09/2021 4:10 AM HISTORY: 60-year-old man cardiac surgery follow-up FINDINGS:Compared with study the previous day, significant improvement. There is cardiomegaly with postsurgical changes with continued but decreasing failure. Bibasilar atelectasis with left pleural fluid decreasing. No pneumothorax. [place] catheter remains in place Impression: Decreasing failure, atelectasis and left effusion. Electronically signed by: Deandre Lomeli M.D. XR Chest 1 View - Portable - in AM Result Date: 05/08/2021 Narrative: EXAMINATION: XR CHEST 1 VIEW DATE: 05/08/2021 4:15 AM HISTORY: 60-year-old man cardiac surgery follow-up FINDINGS:Compared with study the previous day, significant improvement. There is cardiomegaly with postsurgical changes with continued but decreasing failure. Bibasilar atelectasis with left pleural fluid. No pneumothorax. [place] catheter remains in place Impression: Decreasing failure. No pneumothorax. Electronically signed by: Deacon Cummings M.D. XR Chest 1 View - Portable - in AM Result Date: 05/07/2021 Narrative: EXAMINATION: XR CHEST 1 VIEW DATE: 05/07/2021 3:55 AM HISTORY: 60-year-old man follow-upcardiac surgery FINDINGS:Compared with study of the previous day, postsurgical changes in the heartand mediastinum with cardiomegaly are stable. [place] catheter remains in place. Left thoracostomy tube remains in place. No pneumothorax. Pulmonary vascular congestion with interstitial lung disease remain prominent. Impression: Persistent prominent interstitial lung disease with failure. Electronically signed by: Deacon Cummings M.D. XR Chest 1 View - Portable - in AM Result Date: 05/06/2021 Narrative: EXAMINATION: XR CHEST 1 VIEW DATE: 05/06/2021 4:05 AM INDICATION: Cardiac surgery. COMPARISON: 05/05/2021. FINDINGS: No pneumothorax or pleural effusion. Similar-appearing pulmonary vascular congestion and interstitial opacities most notable in the bilateral upper lobes consistent with pulmonary edema. Pulmonary catheter catheter, left thoracostomy tube, and mediastinal drain are appropriately position. Intra-aortic balloon pump is appropriately positioned. Interval removal of endotracheal tube. Impression: 1. Interval removal of endotracheal tube. Remaining tubes and lines are appropriately positioned. 2. Similar-appearing cardiomegaly, pulmonary vascular congestion, and prominent bilateralinterstitial markings suggestive of interstitial pulmonary edema. Electronically signed by: Richard Zhao II, D.O. XR Chest 1 View - Portable - in AM Result Date: 05/05/2021 Narrative: EXAMINATION: XR CHEST 1 VIEW DATE: 05/05/2021 4:15 AM HISTORY: 60-year-old man cardiac surgery follow-up FINDINGS:Compared with the study of the prior day, tubes and catheters remain satisfactorily positioned. Worsening pulmonary vascular congestive changes are seen. Cardiomegaly with postsurgical changes stable. No pneumothorax. Impression: Increasing failure. Electronically signed by: Deacon Cummings M.D. XR Chest 1 Vw Portable Result Date: 05/05/2021 Narrative: EXAMINATION: XR CHEST 1 VIEW DATE: 05/04/2021 8:40 PM HISTORY: 60-year-old man coronary artery bypass follow-up FINDINGS:Compared with the study of earlier the same day, postsurgical changes now evident within the heart and mediastinum with cardiomegaly. Interval placement of endotracheal tube, nasogastric tube, [place] catheter, left thoracostomy tube and mediastinal drain all in satisfactory position. No pneumothorax. Interstitial lung disease with mild pulmonary vascular congestive changes. Aortic balloon pump is no longer seen. Impression: Tube placements with postsurgical changes with cardiomegaly with interstitial lung disease and mild failure with no pneumothorax. Electronically signed by: Deacon Cummings M.D. XR Chest 1 Vw Portable Result Date: 05/04/2021 Narrative: EXAMINATION: XR CHEST 1 VIEW DATE: 05/04/2021 9:05 AM HISTORY: Coronary artery disease FINDINGS:Comparison is made with study of 2 days earlier. Cardiomegaly, COPD with interstitial lung disease stable. Mild failure. Aortic balloon pump stable in position at the proximal descending aorta. No pneumothorax. No new infiltrates. Impression: Stable appearance. COPD cardiomegaly, with mild failure suspected. Electronically signed by: Deacon Cummings M.D. XR Chest 1 Vw Portable Result Date: 05/02/2021 Narrative: EXAMINATION: XR CHEST 1 VIEW DATE: 05/02/2021 5:15 AM INDICATION: Intra-aortic balloon pump. COMPARISON: 05/01/2021. FINDINGS: Appropriately positioned intra-aortic balloon pump appears unchanged. No pneumothorax or pleural effusion. Mixed reticular and alveolar opacities demonstrated inall lung lobes appear most significant in the upper lobes and perihilar regions, unchanged. Impression: 1. Appropriately positioned intra-aortic balloon pump. 2. Similar mixed reticular and alveolar opacities most notable in the bilateral upper lobes and perihilar region. Electronically signed by: Richard Lopez II, D.O. XR Chest 1 Vw Portable Result Date: 05/02/2021 Narrative: EXAMINATION: XR CHEST 1 VIEW DATE: 05/01/2021 8:15 PM INDICATION: Hypoxia. COMPARISON: None. FINDINGS: No pneumothorax. No pleural effusion. Mixed reticular and alveolar opacities are demonstrated in all lung lobes but demonstrate an upper lobe and perihilar predominance. Findings may represent pulmonary edema on background of centrilobular emphysematous changes. Underlying infectious process not entirely excludable. Cardiac mediastinal silhouette is stable in appearance. No acute osseous abnormality. Impression: Mixed reticular and alveolar opacities are demonstrated in all lung lobes but demonstrate an upper lobe and perihilar predominance. Findings may represent pulmonary edema on background ofcentrilobular emphysematous changes. Electronically signed by: Richard Lopez II, D.O. Transthoracic Echo (TTE) Limited Result Date: 05/07/2021 Narrative: [facility] [id number] [place], [place] [id number] Limited Echocardiogram Report Patient Name: DEEPAK ALVARADO : 1960 StudyDate: 05/07/2021 12:16:52 PM Gender: M Tech: SR Location: [id number] Ref.Provider: RHINA GRANADOS Height(Cm): 175 BSA: 2.1 Weight(Kg): 91 Heart Rate: 82 BP: 127/44 Quality: Good Order Provider: Dr. Sutton Procedures: Echocardiographic Report: Limited transthoracic echocardiogram with 2D and M-Mode. Measurements: 2D/M Mode Measurement Value Normal Range LVIDd 2D 3.43 [ 4.20 -5.90 ] cm LVIDs 2D 2.59 [ 2.30 - 3.90 ] cm LVPWd 2D 1.01 [ 0.60 - 1.00 ] cm IVSd 2D 0.71 [ 0.60 - 0.90 ] cm Findings: Left Ventricle: Reduced left ventricular cavity size. Mild global left ventricular systolic dysfunction. Ejection fraction is measured at 42 %. These segments of the LV are hypokinetic: apical anterior segment. Pericardium: Trivial pericardial effusion. No echocardiographic evidence to suggest pericardial tamponade. Conclusions: Reduced left ventricular cavity size. Mild global left ventricular systolic dysfunction. Ejection fraction is measured at 42 %. These segments of the LV are hypokinetic: apical anterior segment. Trivial pericardial effusion. No echocardiographic evidence to suggest pericardial tamponade. Electronically Signed By: Gianni Francois MD, [facility] :54:09 STAFF FORESTER Transthoracic Echo Complete W Doppler/CF Result Date: 05/02/2021 Narrative: [address] [address] Echocardiogram Report Patient Name: DEEPAK ALVARADO W : 1960 Study Date: 05/02/2021 8:50:02 AM Gender: M Tech: SR Location: [id number] Ref Provider: Yo CLAYTONight(Cm): 175 BSA: 2.11 Weight(Kg): 92 Heart Rate: 89 BP: 102/52 Quality: Good Order Provider: NALINI CLAYTON PROCEDURES: Echocardiographic Report: Transthoracic echocardiogram with complete 2D, M-Mode, and color Doppler examination. INDICATIONS: Free Text. Measurements: 2D/M Mode DopplerMeasurement Value Normal Range Measurement Value Normal Range EF Teich 2D 30.0 [ 55.0 - 70.0 ] percent CHRISTINA Vmax 2.04 [ 2.00 - 4.00 ] cm2 EF Mod 4C 42.2 [ 55.0 - 70.0 ] percent AV Mean PG 5 [ 2 - 4 ] mmHg LVIDd 2D 4.54 [ 4.20 - 5.90 ] cm AV Peak Ramesh 1.54 [ 1.00 - 1.70 ] m/s LVIDs 2D 3.91 [ 2.30 - 3.90 ] cm AV VTI 26.93 cm LVPWd 2D 0.92 [ 0.60 - 1.00 ] cm LVOT Diam 2.20 [ 1.70 - 2.10 ] cm IVSd 2D 0.76 [ 0.60 - 0.90 ] cm LVOT Peak Ramesh 0.83 [ 0.70 - 1.10 ] m/s LA Dimension MM 5.08 [ 3.00 - 4.00 ] cm LVOT VTI 13.82 [ 20.00 - 30.00 ] cm AoR Diam MM 4.12 [ 2.60 - 3.70 ] cm MV E Peak Ramesh 0.85 [ 0.60 - 1.30 ] m/s LA Volume Index 20.83 [ 16.00 - 28.00 ] cc/m2 MV A Peak Ramesh 1.14 [ 1.00 - 1.20 ] m/s ACS MM 1.91 [ 1.50 - 2.60 ] cm MV Mean PG 1 [ <= 5 ] mmHg MV PHT 43 [ 20 - 100 ] msec MVA 2.20 MVDecel Time 137 [ 104 - 258 ] msec PV Peak Ramesh 1.10 [ 0.40 - 0.80 ] m/s TR Peak Ramesh 1.32 [ 1.00 - 2.80 ] m/s TR Peak PG 7 mmHg RVSP 16.93 [ 10.00 - 36.00 ] mmHg E' 0.06 E/E' 14.00 Measurement ValueNormal Range Measurement Value Normal Range 2D/M Mode Doppler - FINDINGS: Atrial Septum: Normal atrial septum. Left Ventricle: Normal left ventricular size. Left ventricle not well visualized. Thereis severe hypokinesis of the mid anteroseptal, anterior, and apical mancilla. Normal left ventricular wall thickness. Impaired diastolic relaxation Grade I. Ejection fraction is visually estimated at 40%. Left Atrium: The left atrium is normal in size. Right Ventricle: Normal right ventricular size. Normal right ventricular systolic function. Right Atrium: The right atrium is normal in size. Aortic Valve: Normal structure of the aortic valve. No evidence of hemodynamically significant aortic stenosis by Doppler. No aortic regurgitation. Mitral Valve: Normal structure of the mitral valve. Trivial regurgitation of the mitral valve. Pulmonic Valve: Pulmonic valve not well visualized. Trivial regurgitation in the pulmonic valve. Tricuspid Valve: Normal structure of the tricuspid valve. Trivial regurgitation in the tricuspid valve. Pericardium: Normal pericardium with no significant pericardial effusion. Aorta: Normal aortic root. IVC: Normal size and normal respiratory collapse consistent with normal right atrial pressure (<5 mmHg). CONCLUSIONS: Technically difficult study with limitedviews. Normal left ventricular size. Left ventricle not well visualized. There is severe hypokinesis of the mid anteroseptal, anterior, and apical mancilla. Normal left ventricular wall thickness. Impaired diastolic relaxation Grade I. Ejection fraction is visually estimated at 40 %. Normal right ventricular size. Normal right ventricular systolic function. Normal structure of the mitral valve. Trivi al regurgitation of the mitral valve. Normal structure of the tricuspid valve. Trivial regurgitation in the tricuspid valve. Electronically Signed By: Rylee Brito DO, [facility] EDMONDSJustyna, VILMA, FAISAL 2021-05-02 14:07:25 STAFF FORESTER CC: CC: CC: ASSESSMENT/PLAN Hyponatremia from SIADH and possibly from zaroxylyn use. Work up for hyponatremia ongoing. PO FR. No normotonic fluids yet. Urine lytes and osm. If in clinical fluid overload, can use tolvaptan. Renal fn is better. Na better with loop diuresis, but currently acceptable off it. Daily BMP. ?? Recent bladder tumor removal with hematuria. ?? -??Urology is following.H/H stable -Cysto vs conservative tx. -Voiding trial, hematuria has stopped. -Epistaxis Use nasal pillows. -CHF with decompensation Continue diuresis. RHC not done. Agree with Chandu. ?? Hypokalemia from diuresis. Replace PRN. ?? 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 COVID positive. Per protocol. On Remdisivir and Dex. ?? Syncopal episode -(+) orthostasis -receiving albumin -IV lasix was discontinued. ??There is a 1x order for zaroxolyn 10mg this am- recommend holding fornow. ??D/w RN ?? Coronary artery disease -s/p CABG post STEMI -??underwent four-vessel bypass ??MAE to the LAD, sequential saphenous vein graft to diagonal and obtuse marginal and a vein graft to the PDA. -s/p??low dose dobutamine -paced rhythm -??IV??diuretics??discontinued d/t syncopal episode today (see above) ?? Moderate LV dysfunction -s/p IV??lasix??and??low dose??dobutamine -Beta blockers, ??[place] once off dobutamine-would hold off adding given syncopal episode this am -repeat ECHO 05/07 EF 42% (see above) ?Nonsustained ventricular tachycardia -no recurrence of VT -K 3.7, Mg??2.0. ??Supplement to keep K >/= 4.0, Mg >/= 2.0 ?Diabetes mellitus -?on lantus and SSI ?? COPD: ?? -on?O2 NC??4L (dried blood to L nare humidified o2 ordered) ?? Dyslipidemia -?Continue atorvastatin. ?PAD -?Stable ? Anemia -Hb??11.4 (10.5)??(8.6) -monitor ?? I can be reached at [phone] with any concerns. Thank you Rhnia Granados MD for the consult. Yves Weinberg MD [employer] [phone] F FORESTER * Shruthi Hu COTA - 05/21/2021 3:38 PM CST Occupational Therapy NOTE / SESSION TYPE: DAILY PROGRESS / TREATMENT Patient's Name: Deepak Alvarado Age / Sex: 60 y.o. / male Room: [place] [id number] : 1960 Date of service: 05/21/21 TIME IN: 15:08 TIME OUT: 15:39 Patient Active Problem List Diagnosis ??? ST elevation myocardial infarction (STEMI) (HCC) Past Medical History: Diagnosis Date ??? Chronic obstructive pulmonary disease (CMS/HCC) (HCC) COPD ??? Coronary artery disease ??? Diabetes mellitus (HCC) ??? H/O heart artery stent 2006 ??? Hypertension Hypertension ??? ST elevation (STEMI) myocardial infarction (HCC) 05/01/2021 History reviewed. No pertinent surgical history. Precautions (including weight-bearing): Fall risk, Bed / chair alarm, Sternal precautions, Cardiac precautions, Contact isolation: COVID and Airborne precautions: COVID Subjective: PATIENT STATES, I'M IN PAIN ALL OF THE TIME. Therapy Pain: Pre-therapy pain level: 6 /10 Pain location: [place] Pain Intervention(s): RN Notified and Other: RN ADDRESSED PAIN MEDS AFTER OT SESSION Post-therapy pain level: 8 /10 Pain scale reference: 0-10 SCALE Objective: Appearance: Presentation upon OT arrival: Patient Supine with head of bed elevated Presentation upon OT departure: Patient Supine with head of bed elevated Bed / Chair alarm in place and activated upon OT departure: Yes Call light within arms reach of patient at end of session: Yes Completed patient handoff and notified MANAGER RENTAL / RN, name: TIANA, of patient's location and functional status upon completion of session VITAL SIGNS: Heart rate at rest: 81 BPM Heart rate with activity: 81-95 BPM Heart rate after activity: 90 BPM O2 saturations at rest: 95 % O2 saturations with activity: 92-95 % O2 saturations after activity: 94 % Oxygen LPM: REMAINED ON CONTINUOUS OPTIFLOW @ 75%/ 40 LPM Blood pressure at rest: 106 / 58 Blood pressure with activity: 117 / 73 Cognitive / Perceptual: FOLLOWED ONE-STEP COMMANDS THIS AFTERNOON WITH 100% ACCURACY Mobility / Transfers: Bed Mobility: MOD ASSIST FROM SUPINE WITH HOB ELEVATED <> SEATED AT EOB Transfer(s): MIN ASSIST FOR PARTIAL SIT <> STAND FROM SEATED AT EOB <> PARTIAL STAND AT EOB WITHOUT DEVICE WITH X 2 LATERAL SIDE STEPS TOWARDS HOB Living Skills / Other Activities: UE DRESSING LOCATION OF UE DRESSING: Sitting on EOB TASKS COMPLETED: Pullover shirt OVERALL ASSIST LEVEL: PARTIAL / MODERATE ASSISTANCE: LESS THAN HALF (1% - 49%) ADDITIONAL DOCUMENTATION: PATIENT REQUIRED MIN ASSIST TO PULL SHIRT DOWN IN BACK AND MOD VCS TO UNTHREAD BILATERAL UEs WHEN DONNING/DOFFING PULLOVER SHIRT. PATIENT ADHERED TO STERNAL PRECAUTIONS [id number]% ACCURACY AND MIN VCS PRN AFTER INITIAL VERBAL/VISUAL DEMONSTRATION DURING COMPLETION OF ADL TASK Caregiver Present: No Education & Training Provided: Role of OT, OT plan of care, ADL training, Compensatory ADL strategies, Bed mobility training, Functional transfer training, Safety education and CARDIAC AND STERNAL precautions Assessment: Activity tolerance / response to OT session: GOOD PARTICIPATION, GOOD MOTIVATION, RECEPTIVE TO EDUCATION / TRAINING and PRN REST BREAKS REQUIRED Progress towards goals: Please refer to care plan from this date for progress towards individual goals Plan: Therapy Plan: Rehab Potential (Prognosis): good OT Recommendations This Date: Location: Inpatient rehabilitation pending qualify criteria Supervision: 24 hour Follow-up Therapy Recommendations: SKILLED OT IN INPATIENT REHABILITATION SETTING OT Consultation in Regards to Discharge Recommendations: N/A Frequency of therapy: 3-5 times / week If this is the last note, consider this the discharge summary CAITIE Tinsley 05/21/21 Cosigned by Rich Haynes OT at 05/21/2021 4:20 PM STAFF FORESTER F FORESTER F FORESTER * Anibal Lara MD - 05/21/2021 12:27 PM CST Hospitalist Progress Note Name: Deepak Alvarado Admission Date: 05/01/2021 Today's Date: 05/21/2021 Subjective: Pt seen and examined Clinical course: Overall pt condition has improved. Still on 4L per NC today 05/16: feels ok today, on 5L per NC 05/17: transferred to ICU for worsening respiratory distress requiring more O2 05/20: remains in the ICU, on Optiflow today 05/21: about the same today, Optiflow Objective: Vitals: 05/21/21 1000 05/21/21 1015 05/21/21 1030 05/21/21 1045 BP: 100/56 94/59 91/54 100/61 Pulse: 84 90 92 80 Resp: Temp: TempSrc: SpO2: Weight: Height: Wt Readings from Last 3 Encounters: 05/20/21 79.5 kg (175 lb 4.3 oz) 08/27/13 114.3 kg (252 lb) 10/19/12 111.6 kg (246 lb) I/O last 3 completed shifts: In: 1163 [P.O.:913; I.V.:250] Out: 1050 [Urine:1050] I/O this shift: In: 50 [P.O.:50] Out: 725 [Urine:725] Scheduled Meds Current Facility-Administered Medications Medication Dose Route Frequency Provider Last Rate Last Admin ??? acetaminophen (TYLENOL) tablet 650 mg 650 mg oral Q6H PRN Eleonora Duarte NP 650 mg at 05/21/21 0811 ? ? al & mag hydroxide wazwibsbuch-gijuokkwxkgeqzt-ashmqjzgb-nystatin (MAGIC MOUTHWASH) suspension 1-1-1-1 20 mL swish & spit Q4H PRN Elena Kelly NP ??? albuterol 2.5 mg /3 mL (0.083 %) nebulizer solution 2.5 mg 2.5 mg nebulization Q4H PRN (RT) Ralf Tomlinson MD 2.5 mg at 05/17/21 0224 ??? albuterol HFA (PROVENTIL HFA,VENTOLIN HFA,PROAIR HFA) 90 mcg/actuation inhaler 8 puff 8 puff inhalation Q4H While awake (RT) Ralf Tomlinson MD 8 puff at 05/21/21 0906 ??? aspirin enteric coated tablet 81 mg 81 mg oral Daily Varsha Crowder NP 81 mg at 05/21/21 0810 ??? atorvastatin (LIPITOR) tablet 80 mg 80 mg oral Nightly Rhina Granados MD 80 mg at 05/20/212053 ??? dexAMETHasone (DECADRON) 4 mg/mL injection 6 mg 6 mg intravenous Daily Elena Kelly NP 6mg at 05/21/21 08 ??? dextrose oral liquid liquid 15 g 15 g oral Q15 Min PRN Anibal Lara MD Or ??? dextrose (D10W) 10% bolus 250 mL 250 mL intravenous Q15 Min PRN Anibal Mon MD ??? docusate sodium (COLACE) capsule 100 mg 100 mg oral BID Rhina Granados MD 100 mg at 05/21/21 0810 ??? enoxaparin (LOVENOX) syringe 40 mg 40 mg subcutaneous Daily-2100 Rhina Granados MD 40 mg at107/21/202053 ??? glucagon injection 1 mg 1 mg intramuscular Q30 Min PRN Anibal Lara MD ??? guaiFENesin (ROBITUSSIN) 20 mg/mL oral liquid 200 mg 200 mg oral QID PRN Caleb Toth PA 200 mg at 05/21/21 08 ??? insulin glargine (LANTUS, SEMGLEE) 100 unit/mL injection 8 Units 8 Units subcutaneous QAM Abelino Leblanc MD 8 Units at 05/21/21810 ??? insulin lispro (HumaLOG, ADMELOG) 100 unit/mL injection 0-12 Units 0-12 Units subcutaneous 5x daily (with meals, nightly, & 0200) Abelino Leblanc MD 4 Units at 05/21/21 1204 ??? insulin NPH (HumuLIN N, NovoLIN N) 100 unit/mL injection 8 Units 8 Units subcutaneous Daily Silviano Huddleston NP 8 Units at 05/21/21 0811 ??? midodrine (PROAMATINE) tablet 15 mg 15 mg oral Q6H Rhina Granados MD 15 mg at 05/21/21809 ??? ondansetron (ZOFRAN) injection 4 mg 4 mg intravenous Q6H PRN Rhina Granados MD ??? pantoprazole DR (PROTONIX) extended release tablet 40 mg 40 mg oral Daily Rhina Granados MD40 mg at 12/02/21 0810 ??? polyethylene glycol (MIRALAX) packet 17 g 17 g oral Daily PRN Rhina Granados MD ??? QUEtiapine (SEROquel) tablet 25 mg 25 mg oral Nightly Rhina Granados MD 25 mg at 05/20/212053 ??? remdesivir (VEKLURY) 100 mg in sodium chloride 0.9% 250 mL IVPB 100 mg intravenous Q24H Elena Kelly NP 270 mL/hr at 05/20/21 2316 100 mg at 05/20/21 2316 ??? sodium chloride 0.9% flush 0.5-20 mL 0.5-20 mL intra-catheter Q8H LEAH Rhina Granados MD 10 mL at 05/21/21 0811 ??? sodium phosphate - potassium phosphate (K-PHOS NEUTRAL) tablet 250 mg 250 mg oral TID with meals Silviano Huddleston NP 250 mg at 05/21/21 1203 ??? tamsulosin (FLOMAX) extended release capsule 0.4 mg 0.4 mg oral Daily with dinner Elena Kelly NP 0.4 mg at 05/20/21 1706 ??? acetaminophen ? ? al & mag hydroxide mmtjrmwyknh-abanwyvbhlwclay-yldozbbff-nystatin ??? albuterol ??? dextrose OR dextrose ??? glucagon ??? guaiFENesin ??? ondansetron ??? polyethylene glycol Physical Exam: General: alert, cooperative, no distress, appears stated age HEENT: Head:normacephalic, Eyes: Perrla, EOMI bilaterally, nasal and oral mucosal pink and moist Heart: normal rate, regular rhythm, normal S1, S2, no murmurs, rubs, clicks or gallops Lungs: clear to auscultation, no wheezes or rales and unlabored breathing Abdomen: soft, nontender, nondistended, no masses or organomegaly Extremities: peripheral pulses normal, no pedal edema, no clubbing or cyanosis Neuro: alert, oriented x 3, no defects noted in general exam. Lab Data Laboratory review: Chemistry CMP: Lab Results Component Value Date ALBUMIN 3.6 05/18/2021 BUNSER 34 (H) 05/21/2021 CALCIUM 8.6 05/21/2021 CO2 24 05/21/2021 CHLORIDE 97 05/21/2021 CREATININE 0.78 (L) 05/21/2021 GLUCOSE 218 (H) 05/21/2021 GLUCOSE 175 05/21/2021 POTASSIUM 3.2 (L) 05/21/2021 SODIUM 135 05/21/2021 BILITOT 0.6 05/18/2021 PROT 7.1 05/18/2021 ALT 18 05/18/2021 AST 60 (H) 05/18/2021 ALKPHOS 86 05/18/2021 , CBC: Lab Results Component Value Date WBC 8.3 05/21/2021 RBC 3.20 (L) 05/21/2021 HGB 9.5 (L) 05/21/2021 HCT 28.7 (L) 05/21/2021 MCV 89.7 05/21/2021 MCH 29.7 05/21/2021 MCHC 33.1 05/21/2021 RDWCV 13.2 05/21/2021 RDWSD 43.7 05/21/2021 MPV 11.6 05/21/2021 NRBCABS 0.00 05/21/2021 , Coags: No results found for: PT, PTT, APTT, FFN, FIBRINOGEN, INR, ACTIVATEDCL, Lipids: No resultsfound for: CHOL, CHLPL, HDL, LDLCALC, TRIG, CHOLHDL, Cardiac Enzymes: No results found for: CKTOTAL, CKMB, CKMBINDEX, TROPONINT and POC Glucose: Lab Results Component Value Date GLUCOSE 218 (H) 05/21/2021 GLUCOSE 175 05/21/2021 Home Medications have been reviewed and updated on pt's list Assessment and Plan Acute resp failure - self ext 05/05/21 -Lung infiltrates - pulm vascular congestion versus pneumonia - completed Zosyn -COVID19 (+) 05/19 -started on Decadron and Remdesivir 05/19 -pt was on BiPAP last night, today on Optiflow -pulmonology follows Near syncope/Syncope episode, probable vaso vagal, monitor ?? Acute anterior STEMI with CAD , s/p PCI to LAD -s/p CABG x 4 05/04 given re thrombosis of existing stents -s/p IABP, removed 05/06 - ASA, ??statins, off Plavix due to hematuria, BBs on hold due to hypotension ?? Post CABG cardiogenic shock, hypotensive again - s/p??Dobutamine gtt and Levophed -now on Midodrine ?? Ventricular fibrillation - briefly on 05/03 - treated with Amiodarone and Dobutamine gtt, off them ?? Gross Hematuria ?- in a pt with hx of ??cystoscopy, -clot evacuation and transurethral resection of bladder tumor at [facility] -s/p 20??German three way catheter -holding Plavix -cysto 05/14 with clot evacuation and fulguration ? Type 2 diabetes.??- Back on SSI protocol and Lantus per Endocrine ?? Acute blood loss anemia ; -s/p PRBC transfusions in ICU - monitor HH, today 9.5 ?? Mild hyponatremia, monitor ?? Hx of ??Tobacco use. ?? DVT prophylaxis :Lovenox Pt will need continued inpatient management for the above medical issues. Code status: full Anibal Hughes MD [facility] Hospitalist 05/21/2021 12:27 PM F FORESTER * Ralf Tomlinson MD - 05/21/2021 11:21 AM CST Pulmonary Daily Progress Chief complaint/reason for consult: Respiratory failure. Interval History: on optiflow 75%/40L, sats mid 90s Alert Afebrile No sputum or chest pain Some delirium noted COVID positive 05/19/21 Presenting History: 60 yo man w COPD, DM, CAD/stents admitted 05/01/21 with chest pain. Had recent hematuria as well. Workup revealed an acute MT. Cath showed multi-vessel CAD. Had balloon pump placed. CABG x 4 done on 05/04/21. He was continued on mechanical ventilation and self extubated this AM (05/05/21). He is on multiple pressors. Sedated with precedex. Some tachypnea. A balloon pump is in place. Current tobacco use. COPD listed as prior diagnosis. No inhalers on home med list. Allergies: Allergies Allergen Reactions ??? Metoclopramide Medications: Scheduled Meds:albuterol HFA, 8 puff, inhalation, Q4H While awake (RT) aspirin, 81 mg, oral, Daily atorvastatin, 80 mg, oral, Nightly dexAMETHasone, 6 mg, intravenous, Daily docusate sodium, 100 mg, oral, BID enoxaparin, 40 mg, subcutaneous, Daily-2100 insulin glargine, 8 Units, subcutaneous, QAM insulin lispro, 0-12 Units, subcutaneous, 5x daily (with meals, nightly, & 0200) insulin NPH, 8 Units, subcutaneous, Daily midodrine, 15 mg, oral, Q6H pantoprazole DR, 40 mg, oral, Daily QUEtiapine, 25 mg, oral, Nightly remdesivir, 100 mg, intravenous, Q24H sodium chloride 0.9%, 0.5-20 mL, intra-catheter, Q8H LEAH sodium phosphate - potassium phosphate, 250 mg, oral, TID with meals tamsulosin, 0.4 mg, oral, Daily with dinner Continuous Infusions: PRN Meds:.??? acetaminophen ? ? al & mag hydroxide fhyhvovymnn-fnugvgrfiskbusg-mwwpfmznb-nystatin ??? albuterol ??? dextrose OR dextrose ??? glucagon ??? guaiFENesin ??? ondansetron ??? polyethylene glycol ROS Above review of system reviewed on 05/21/2021 Vitals: Vitals: 05/21/21 1000 05/21/21 1015 05/21/21 1030 05/21/21 1045 BP: 100/56 94/59 91/54 100/61 Pulse: 84 90 92 80 Resp: 25 27 27 Temp: TempSrc: SpO2: Weight: Height: Temp (24hrs), Av.9 ??C (98.4 ??F), Min:36.7 ??C (98.1 ??F), Max:37 ??C (98.6 ??F) FiO2 (%): [50 %-100 %] 75 % Intake/Output Summary (Last 24 hours) at 05/21/2021 1122 Last data filed at 05/21/2021 1100 Gross per 24 hour Intake 405 ml Output 600 ml Net -195 ml Physical Exam Constitutional: General: He is not in acute distress. Appearance: He is well-developed. HENT: Head: Normocephalic and atraumatic. Eyes: Conjunctiva/sclera: Conjunctivae normal. Neck: Thyroid: No thyromegaly. Cardiovascular: Rate and Rhythm: Normal rate and regular rhythm. Heart sounds: No murmur heard. Pulmonary: Effort: Pulmonary effort is normal. No respiratory distress. Breath sounds: Normal breath sounds. No wheezing, rhonchi or rales. Chest: Comments: Sternotomy incision Abdominal: General: Bowel sounds are normal. Palpations: Abdomen is soft. Skin: General: Skin is warm and dry. Neurological: Mental Status: He is alert. Lab/Radiology/Diagnostic Review: Labs: Recent Labs Lab Units 05/21/21 0357 05/20/21 0328 05/19/21 0456 05/18/21 0204 05/17/21 0333 WBC K/cumm 8.3 9.3 8.0 < > 8.7 HEMOGLOBIN g/dL 9.5* 10.6* 9.8* < > 11.3* HEMATOCRIT % 28.7* 32.5* 29.1* < > 33.8* PLATELETS K/cumm 355 381 308 < > 267 NEUTROS PCT % -- -- -- -- 78.4 LYMPHS PCT % -- -- -- -- 11.7 MONOS PCT % -- -- -- -- 9.0 EOS PCT % -- -- -- -- 0.1 < > = values in this interval not displayed. Recent Labs Lab Units 05/21/21 0806 05/21/21 0413 05/21/21 0257 05/20/21 0902 05/20/21 0328 05/20/21 0128 05/20/21 0025 05/19/21 0143 05/18/21 2137 05/17/21 0936 05/17/21 0333 SODIUM mmol/L -- 135 -- -- 132* -- 131* < > -- < > 133* POTASSIUM PLASMA mmol/L -- 3.2* -- -- 4.0 -- 3.7 < > -- < > 2.6* CHLORIDE mmol/L -- 97 -- -- 94* -- 95* < > -- < > 92* CO2 mmol/L -- 24 -- -- 21* -- 21* < > -- < > 22 ANIONGAP mmol/L -- 14 -- -- 17* -- 15 < > -- < > 19* GLUCOSE mg/dL -- 175 -- -- 186 < > 173 < > -- < > 157 POC GLUCOSE MONITOR mg/dL 177 -- 169 < > -- < > -- < > -- < > -- BUN SERUM mg/dL -- 34* -- -- 45* -- 47* < > -- < > 25 CREATININE mg/dL -- 0.78* -- -- 1.14 -- 1.05 < > -- < > 1.06 CALCIUM mg/dL -- 8.6 -- -- 8.8 -- 8.4* < > -- < > 8.3* ALBUMIN g/dL -- -- -- -- -- -- -- -- 3.6 -- 3.5 ALK PHOS Units/L -- -- -- -- -- -- -- -- 86 -- 94 ALT Units/L -- -- -- -- -- -- -- -- 18 -- 20 AST Units/L -- -- -- -- -- -- -- -- 60* -- 64* BILIRUBIN TOTAL mg/dL -- -- -- -- -- -- -- -- 0.6 -- 0.7 < > = values in this interval not displayed. Recent Labs Lab Units 05/18/21195205/17/21219 PH ART 7.45 7.50* PCO2 ART mmHg 32* 27* PO2 ART mmHg 58* 72* HCO3 ART (CALC) mmol/L 23 24 BASE EXC ART mmol/L -2 -2 O2 SAT ART (JOELLE) % 89* 96* Imaging: CT chest 05/19/21: b gg inf, severe emphysema Other diagnostic tests: I have personally reviewed above laboratory findings, chest imaging, and diagnostic tests 05/21/2021 Assessment and Plan: Acute respiratory failure Acute MT w CAD s/p CABG x 4 on 05/04/21, past hx multiple stents Cardiogenic shock, resolved Cardiomyopathy EF 40% V fib COPD: severe emphysematous changes on CT Anemia Hematuria s/p cystoscopy/fulguration COVID 19, diagnosed 05/19/21, resp status began worsening 05/15/21 ?? Recs: Oxygen support, wean as able Dexamethasone started 05/19 On remdesivir Incentive spirometry Scheduled albuterol abx coverage for pna: Zosyn, completed Scheduled bronchodilators Increase activity as tolerated Chart reviewed F FORESTER * Ellen Maynard NP - 05/21/2021 10:35 AM CST Daily Progress SUBJECTIVE: S/p CABG day 20 A&Ox4. NAD. Denies pain. States breathing is ok. In isolation room for COVID 19 positive resulton 05/19. OBJECTIVE: Vitals: 05/21/21 0900 05/21/21 0906 05/21/21 0915 05/21/21 0930 BP: 95/59 97/61 92/61 Pulse: 87 94 88 Resp: Temp: TempSrc: SpO2: 98% Weight: Height: Intake/Output Summary (Last 24 hours) at 05/21/2021 1035 Last data filed at 05/21/2021 0915 Gross per 24 hour Intake 405 ml Output -- Net 405 ml Scheduled Medications Medication Dose Route Frequency ??? albuterol HFA (PROVENTIL HFA,VENTOLIN HFA,PROAIR HFA) 90 mcg/actuation inhaler 8 puff 8 puff inhalation Q4H While awake (RT) ??? aspirin enteric coated tablet 81 mg 81 mg oral Daily ??? atorvastatin (LIPITOR) tablet 80 mg 80 mg oral Nightly ??? dexAMETHasone (DECADRON) 4 mg/mL injection 6 mg 6 mg intravenous Daily ??? docusate sodium (COLACE) capsule 100 mg 100 mg oral BID ??? enoxaparin (LOVENOX) syringe 40 mg 40 mg subcutaneous Daily-2100 ??? insulin glargine (LANTUS, SEMGLEE) 100 unit/mL injection 8 Units 8 Units subcutaneous QAM ??? insulin lispro (HumaLOG, ADMELOG) 100 unit/mL injection 0-12 Units 0-12 Units subcutaneous 5x daily (with meals, nightly, & 0200) ??? insulin NPH (HumuLIN N, NovoLIN N) 100 unit/mL injection 8 Units 8 Units subcutaneous Daily ??? midodrine (PROAMATINE) tablet 15 mg 15 mg oral Q6H ??? pantoprazole DR (PROTONIX) extended release tablet 40 mg 40 mg oral Daily ??? QUEtiapine (SEROquel) tablet 25 mg 25 mg oral Nightly ??? remdesivir (VEKLURY) 100 mg in sodium chloride 0.9% 250 mL IVPB 100 mg intravenous Q24H ??? sodium chloride 0.9% flush 0.5-20 mL 0.5-20 mL intra-catheter Q8H LEAH ??? sodium phosphate - potassium phosphate (K-PHOS NEUTRAL) tablet 250 mg 250 mg oral TID with meals ??? tamsulosin (FLOMAX) extended release capsule 0.4 mg 0.4 mg oral Daily with dinner LABS: Recent Labs Lab Units 05/21/21 0357 WBC K/cumm 8.3 HEMOGLOBIN g/dL 9.5* HEMATOCRIT % 28.7* PLATELETS K/cumm 355 Recent Labs Lab Units 05/21/21 0806 05/21/21 0413 05/21/21 0257 05/19/21 0143 05/18/21 2137 SODIUM mmol/L -- 135 -- < > -- POTASSIUM PLASMA mmol/L -- 3.2* -- < > -- CHLORIDE mmol/L -- 97 -- < > -- CO2 mmol/L -- 24 -- < > -- ANIONGAP mmol/L -- 14 -- < > -- GLUCOSE mg/dL -- 175 -- < > -- POC GLUCOSE MONITOR mg/dL 177 -- < > < > -- BUN SERUM mg/dL -- 34* -- < > -- CREATININE mg/dL -- 0.78* -- < > -- CALCIUM mg/dL -- 8.6 -- < > -- ALBUMIN g/dL -- -- -- -- 3.6 ALK PHOS Units/L -- -- -- -- 86 ALT Units/L -- -- -- -- 18 AST Units/L -- -- -- -- 60* BILIRUBIN TOTAL mg/dL -- -- -- -- 0.6 < > = values in this interval not displayed. No results found for: BNP No results found for: TROPONINI Exam General: in no respiratory distress and acyanotic and alert Neuro: Alert and oriented x 3, moves all extremities well HEENT: normocephalic, atraumatic, thyroid not enlarged. I do not appreciate JVD. Neck: There are nocarotid bruits. Lungs: symmetric, unlabored, clear to auscultation bilaterally Heart: S1,S2, regular rate & rhythm, no murmurs, rubs, or gallops Abdomen: soft, non-tender, non-distended, bowel sounds present Extremities: no LE edema, palpable peripheral pulses BL Neurologic: No focal deficits Skin: healing sternal incision wound edges well approximated ASSESSMENT/PLAN: CAD + STEMI s/p CABG -- Cardiac cath 05/01 with 40% distal LM, 100% prox LAD, 90% prox Cx, 50% prox and distal RCA -- Echo 05/02 EF 40%, CABGx4 05/04/2021 -- SR 80s on tele -- stable, follow COVID 19 -- dx 05/20/2021 -- on Remdesivir and dexamethason Acute Respiratory failure -- Lung infiltrates per CXR on 05/19, completed Abx -- transferred to ICU 05/17 for increasing oxygen requirments -- on Optiflow -- stable -- Pulm following Hematuria -- cysto 05/14 -- resolved Urinary retention -- osorio replaced today -- on Tamsulosin S/p Cardiogenic shock + Hypotension -- off pressors -- BP 91/61 -- on Midodrine q6 -- follow Hypokalemia -- on K supplement -- follow Hx V. Fib -- brief on 05/03 -- treated w/ AMiodarone and Dobutamine gtt, resolved -- SR 80s on tele HLD -- on Statin DM -- glycemic protocol w/ SSI COPD DVT prophylaxis -- Lovenox, SCDs Discussed with ICU team Ellen Maynard NP [facility] 05/21/2021 10:35 AM Cosigned by Nalini Clayton MD at 05/21/2021 11:34 AM STAFF FORESTER F FORESTER F FORESTER Associated attestation - Nalini Clayton MD - 05/21/2021 11:34 AM STAFF FORESTER PATIENT SEEN. AGREE WITH THE NOTE * Varsha Lee NP - 05/21/2021 9:20 AM CST Cardiothoracic Surgery Progress Note Deepak Alvarado 1960 Hospital DAY#20 17 days postop Urgent Coronary Artery Bypass Graft x4 Subjective: Intermittent episodes of confusion. Reoriented by staff. Continues optiflow, requirements decreased to 40 L/min. No other acute complaints. Patient states he wants to go home . OBJECTIVE: Vitals: Temp: [36.9 ??C (98.4 ??F)-37 ??C (98.6 ??F)] 37 ??C (98.6 ??F) Pulse: [76-97] 88 BP: (92-115)/(57-86) 92/61 Resp: [0-35] 23 SpO2: [93 %-98 %] 98 % FiO2 (%): [50 %-100 %] 75 % Wt Readings from Last 3 Encounters: 05/20/21 79.5 kg (175 lb 4.3 oz) 08/27/13 114.3 kg (252 lb) 10/19/12 111.6 kg (246 lb) I/O last 2 completed shifts: In: 673 [P.O.:673] Out: 250 [Urine:250] Physical Exam Vitals and nursing note reviewed. Constitutional: General: He is not in acute distress. Appearance: Normal appearance. HENT: Head: Normocephalic and atraumatic. Nose: Nose normal. Mouth/Throat: Pharynx: Oropharynx is clear. Eyes: Conjunctiva/sclera: Conjunctivae normal. Cardiovascular: Rate and Rhythm: Normal rate and regular rhythm. Heart sounds: No murmur heard. Comments: NSR 97 Pulmonary: Effort: Pulmonary effort is normal. No accessory muscle usage or respiratory distress. Breath sounds: Rhonchi present. No wheezing. Abdominal: General: There is no distension. Palpations: Abdomen is soft. Tenderness: There is no abdominal tenderness. Musculoskeletal: Cervical back: Neck supple. Right lower leg: No edema. Left lower leg: No edema. Skin: General: Skin is warm and dry. Comments: Sternal incision is well healed and approximated (steri-strips removed) Sternum is stable to cough Rt SVG site HOME CARE PROVIDER with steri-strips C/D/I Neurological: General: No focal deficit present. Mental Status: He is alert and oriented to person, place, and time. Psychiatric: Mood and Affect: Mood normal. Access: picc Recent Labs Lab Units 05/21/21 0357 05/20/218 05/19/21 0456 WBC K/cumm 8.3 9.3 8.0 HEMOGLOBIN g/dL 9.5* 10.6* 9.8* HEMATOCRIT % 28.7* 32.5* 29.1* PLATELETS K/cumm 355 381 308 Recent Labs Lab Units 05/21/21 0413 05/20/21 0328 05/20/21 0025 SODIUM mmol/L 135 132* 131* POTASSIUM PLASMA mmol/L 3.2* 4.0 3.7 CHLORIDE mmol/L 97 94* 95* CO2 mmol/L 24 21* 21* BUN SERUM mg/dL 34* 45* 47* CREATININE mg/dL 0.78* 1.14 1.05 CALCIUM mg/dL 8.6 8.8 8.4* Recent Labs Lab Units 05/18/21195205/17/21 0220 PH ART 7.45 7.50* PCO2 ART mmHg 32* 27* PO2 ART mmHg 58* 72* BASE EXC ART mmol/L -2 -2 Drips: None Imaging: None to review. Assessment and Plan: 60 y.o. male 17 Days Post-Op s/p urgent Coronary Artery Bypass Graft x4 by Dr. Granados [facility]: Albumin 500 mg yesterday. Hold diuretics. SBP 90-115 Continue midodrine for support. Replete K. Pulm: Optiflow at 40 l/min. Pulmonology following. CoVID (+) 05/19/2021--started on Remdesivir and IV steroids. GI: Bowel Regimen. Regular diet +supplements. Renal: BUN/Scr 34/0.78 today ID: ID following. Continue remdesivir and IV steroids. D/L/T: PICC Prophylaxis: Protonix and Lovenox Dispo: ICU Varsha Lee NP Cardiothoracic Surgery [place] [facility]: [phone] [facility] Cosigned by Rhina Granados MD at 05/21/2021 2:57 PM STAFF FORESTER F FORESTER F FORESTER * Angelo Vance MD - 05/21/2021 9:11 AM CST Infectious Disease Deepak Alvarado Admit Date: 05/01/2021 LOS: 20 Days Clinical Course No new changes. PATIENT ABOUT THE SAME New Symptoms Positive SOB, no Cp, no nvd, no rashes Data Vitals: 05/21/21 0800 05/21/21 0815 05/21/21 0830 05/21/21 0845 BP: 110/61 105/62 115/68 105/66 Pulse: 83 90 92 83 Resp: 24 24 17 24 Temp: TempSrc: SpO2: Weight: Height: Temp (24hrs), Av.9 ??C (98.5 ??F), Min:36.9 ??C (98.4 ??F), Max:37 ??C (98.6 ??F) Recent Labs Lab Units 05/21/21 0357 05/20/21 0328 05/19/21 0456 WBC K/cumm 8.3 9.3 8.0 HEMOGLOBIN g/dL 9.5* 10.6* 9.8* HEMATOCRIT % 28.7* 32.5* 29.1* PLATELETS K/cumm 355 381 308 Recent Labs Lab Units 05/21/21 0413 05/20/21 0328 05/20/21 0328 05/20/21 0025 05/20/21 0025 BUN SERUM mg/dL 34* -- 45* -- 47* CREATININE mg/dL 0.78* < > 1.14 < > 1.05 < > = values in this interval not displayed. Scheduled Meds:albuterol HFA, 8 puff, inhalation, Q4H While awake (RT) aspirin, 81 mg, oral, Daily atorvastatin, 80 mg, oral, Nightly dexAMETHasone, 6 mg, intravenous, Daily docusate sodium, 100 mg, oral, BID enoxaparin, 40 mg, subcutaneous, Daily-2100 insulin glargine, 8 Units, subcutaneous, QAM insulin lispro, 0-12 Units, subcutaneous, 5x daily (with meals, nightly, & 0200) insulin NPH, 8 Units, subcutaneous, Daily midodrine, 15 mg, oral, Q6H pantoprazole DR, 40 mg, oral, Daily potassium chloride, 40 mEq, oral, Once QUEtiapine, 25 mg, oral, Nightly remdesivir, 100 mg, intravenous, Q24H sodium chloride 0.9%, 0.5-20 mL, intra-catheter, Q8H LEAH sodium phosphate - potassium phosphate, 250 mg, oral, TID with meals tamsulosin, 0.4 mg, oral, Daily with dinner Continuous Infusions: PRN Meds:.??? acetaminophen ? ? al & mag hydroxide kqrfwwnjtzh-lqmkzpirbqumkah-mlhteqgfc-nystatin ??? albuterol ??? dextrose OR dextrose ??? glucagon ??? guaiFENesin ??? ondansetron ??? polyethylene glycol Exam General appearance: alert, cooperative, no distress HEENT: (-)icterus, Oropharnyx is normal, NCAT Neck: No palpable LN Lungs: breath sounds normal and symmetric; minimal respiratory effort, no r/w/c Heart: regular rhythm, normal S1 and S2, no m/r/g Abdomen: soft without mass, non-tender, +bowel sounds, no HSM Skin: (-)new rashes, no ulcerations MSK: no gross deformities, FROM Vascular: no Edema, pulses present bilaterally Neuro: No focal deficits Psych: Appropriate mood and affect ?? Cultures 05/02 COVID 19- 05/19 COVID 19 positive ?? 05/05 tracheal aspirate culture with yeast ?? Assessment: 1. Acute respiratory failure 2. COVID-19 infection 3. Status post CABG 4. Hematuria ?? Plan: 1. Continue treatment for COVID including remdesivir and IV steroids 2. Continue supportive care Angelo Vance MD 05/21/2021 F FORESTER * Silviano Huddleston NP - 05/21/2021 8:00 AM CST Images from the original note were not included. Critical Care Medicine Daily Progress Team: Community AM Subjective Patient is a 60 y.o. y/o male admitted on 05/01/2021 5:20 PM with the following indication(s) for ICU care COVID PNA. Interval History: -NPH increase to 10 -K replaced -Coude catheter placed HPI (05/17) 60M smoker hx copd, obesity, pvd, htn, hld, dm2 & CAD s/p multiple LAD stents who p/w anterior STEMI after bladder procedure on 04/29. [facility] was [facility] where they found in-stent thrombosis and an angioplasty was performed but stent could not be placed. A balloon pump was placed and the patient was transferred to the CVU. CT-surgery was consulted for CABG. The patie nt underwent a 4 vessel cabg on 05/04 w/ Dr. Granados (MAE->LAD, Saph vein->diag & obtuse, Saph->PDA). He developed rebleeding from his bladder tumor and this was adressed by urology. Heself extubated the next day after his CABG. His osorio was removed yesterday and he is currently post op day 11 from the CABG. He has been getting diuresed on the floor but has unfortunately had increasing oxygen requirement for the last 24 hours despite diuresis. He is currently on a non-rebreatherand being transferred to the ICU.? Hospital Course 04/29 Cystoscopy at [facility] 04/30 STEMI, [facility] -> instent thrombosis, angioplasty, IABP, transfer to [facility] 05/04/21: Increased blood clot from osorio and obstruction with pain.?? 05/05/21: Brief asystole o/n w turning. Stable after. Self extubated in AM.?? 05/06/21: NAEON. Maintained on CPAP and optiflow.?? 05/07/21: NAEON. Up in chair at time of exam. TTF 05/10 near syncopal episode 05/14 cystoscopy with clot removal and fulguration of bleeding 05/17 readmit to ICU with pulmonary edema, lasix drip 05/18 Nasal cannula, on/off pressors, Negative VQ, ACTH Stim unremarkable 05/19 COVID positive, 15 L/NC, Remdesivir, dexamethasone 05/21 coude catheter placed, remains on optiflow, updated Scheduled Medications: albuterol HFA, 8 puff, inhalation, Q4H While awake (RT) aspirin, 81 mg, oral, Daily atorvastatin, 80 mg, oral, Nightly dexAMETHasone, 6 mg, intravenous, Daily docusate sodium, 100 mg, oral, BID enoxaparin, 40 mg, subcutaneous, Daily-2100 insulin glargine, 8 Units, subcutaneous, QAM insulin lispro, 0-12 Units, subcutaneous, 5x daily (with meals, nightly, & 0200) [START ON 05/22/2021] insulin NPH, 10 Units, subcutaneous, Daily midodrine, 15 mg, oral, Q6H pantoprazole DR, 40 mg, oral, Daily QUEtiapine, 25 mg, oral, Nightly remdesivir, 100 mg, intravenous, Q24H sodium chloride 0.9%, 0.5-20 mL, intra-catheter, Q8H LEAH sodium phosphate - potassium phosphate, 250 mg, oral, TID with meals tamsulosin, 0.4 mg, oral, Daily with dinner Continuous Medications: PRN Medications: ??? acetaminophen ? ? al & mag hydroxide asigqxhyssh-llofsqolscftdmr-kuhycqdvn-nystatin ??? albuterol ??? dextrose OR dextrose ??? glucagon ??? guaiFENesin ??? ondansetron ??? polyethylene glycol Objective Vitals: Most Recent: Vitals: 05/21/21 1800 BP: 112/66 Pulse: 85 Resp: 17 Temp: SpO2: 24hr Min/Max: Temp Min: 36.7 ??C (98.1 ??F) Max: 37 ??C (98.6 ??F) Pulse Min: 76 Max: 96 BP Min: 83/48 Max: 115/68 Resp Min: 0 Max: 35 SpO2 Min: 94 % Max: 98 % LDA: PICC Double Lumen 05/18/21 Non-tunneled Power #1 Red, #2 Purple, Right Upper arm;Brachial (Active) Placement Date/Time: 05/18/21 1200 Catheter Time Out Checklist Completed: Yes Hand Hygiene Performed: Yes Site Prep: Alcohol;Betadine;Chlorhexidine Site Prep Agent has Completely Dried Before Insertion: Yes All 5 Sterile Barriers or Appropriate ... Number of days: 2 Vent settings: FiO2 (%): [50 %-80 %] 70 % Hemodynamic parameters for last 24 hours: I/O: Date 05/20/21 1900 - 05/21/21 0659 05/21/21 0700 - 05/22/21 0659 Shift 5855-7766 24 Hour Total 8104-2648 4338-6048 24 Hour Total INTAKE P.O. 673 50 50 Shift Total(mL/kg) 673(8.5) 50(0.6) 50(0.6) OUTPUT Urine(mL/kg/hr) 250 1450(1.5) 1450 Shift Total(mL/kg) 250(3.1) 1450(18.2) 1450(18.2) NET 423 -1400 -1400 Weight (kg) 79.5 79.5 79.5 79.5 79.5 Physical Exam: Neuro- A&Ox3, FC, PERRL CV- NSR, normotensive Resp- Diminished to auscultation, on optiflow GI- soft, n/d, n/t Msk- warm, palpable pulses Drain- none Wound- sternotomy, R leg incision Lab/Radiology/Diagnostic Review: Laboratory review: Lab results in the last 24 hours: Recent Results (from the past 24 hour(s)) POCT glucose Collection Time: 05/21/21 2:57 AM Result Value Ref Range Glucose, POC 169 70 - 199 mg/dL CBC without differential Collection Time: 05/21/21 3:57 AM Result Value Ref Range WBC 8.3 3.8 - 9.9 K/cumm Hgb 9.5 (L) 13.0 - 17.5 g/dL Hct 28.7 (L) 38.9 - 50.3 % Plt 355 150 - 400 K/cumm MPV 11.6 9.1 - 12.3 fL RBC 3.20 (L) 4.30 - 5.80 M/cumm MCV 89.7 81.3 - 96.4 fL MCH 29.7 27.1 - 33.3 pg MCHC 33.1 32.3 - 35.7 g/dL RDW CV 13.2 11.1 - 14.9 % RDW SD 43.7 35.7 - 48.1 fL NRBC abs 0.00 0.00 - 0.01 K/cumm Phosphorus Collection Time: 05/21/21 4:13 AM Result Value Ref Range Phosphorus, pl 2.1 (L) 2.3 - 4.5 mg/dL Magnesium Collection Time: 05/21/21 4:13 AM Result Value Ref Range Magnesium 2.3 1.4 - 2.5 mg/dL Basic metabolic panel Collection Time: 05/21/21 4:13 AM Result Value Ref Range Sodium 135 135 - 145 mmol/L Potassium, pl 3.2 (L) 3.3 - 4.9 mmol/L Chloride 97 97 - 110 mmol/L CO2 24 22 - 32 mmol/L Anion gap 14 2 - 15 mmol/L BUN 34 (H) 8 - 25 mg/dL Creatinine 0.78 (L) 0.80 - 1.30 mg/dL Glucose 175 70 - 199 mg/dL Calcium 8.6 8.5 - 10.3 mg/dL eGFR Collection Time: 05/21/21 4:13 AM Result Value Ref Range eGFR 99 mL/min/1.73 m2 POCT glucose Collection Time: 05/21/21 8:06 AM Result Value Ref Range Glucose, POC 177 70 - 199 mg/dL POCT glucose Collection Time: 05/21/21 11:59 AM Result Value Ref Range Glucose, POC 218 (H) 70 - 199 mg/dL POCT glucose Collection Time: 05/21/21 3:46 PM Result Value Ref Range Glucose, POC 318 (H) 70 - 199 mg/dL CT Chest WO Contrast Result Date: 05/19/2021 1. STATUS POST MEDIAN STERNOTOMY. 2. RIGHT-SIDED PICC CATHETER IN PLACE. 3. CORONARY ARTERY DISEASE. 4. MODERATE EMPHYSEMATOUS CHANGES IN THE LUNGS. 5. PATCHY ALVEOLAR INFILTRATE IN BOTH LUNGS. THIS CAN BE SEEN WITH A VIRAL-TYPE PNEUMONITIS. Electronically signed by: Humphrey Mojica M.D. XR Chest 1 View Result Date: 05/19/2021 Persistent ill-defined patchy left perihilar upper and lower lobe alveolar infiltrate and mild on the right. Electronically signed by: Joie Bernardo M.D. Plan: Neuro: #Acute pain - Tylenol ?? #Insomnia - Seroquel, sleep improving ?? CV: #Severe multivessel CAD s/p CABG #STEMI #HFrEF, chronic - S/p CABG by MD Granados - CCL (04/30) -> in-stent restenosis, unsuccessful angioplasty, IABP placed - ASA/Atorvastatin, holding plavix - Unable to tolerate ACEi or BB at this time - Cardiology following - CTS following - TTE (05/17) -> EF 35-40% ?? Pulmonary: #Acute hypoxic respiratory failure 2/2 #COVID 19 pneumonia - Increasing O2 overnight -> up to 15L/NC, NPPV as needed - V/Q (05/18) -> low probability for PE - CT Chest (05/19) -> c/f viral pneumonia - COVID 19 positive (05/19) - Dexamethasone - Remdesivir - Aggressive pulmonary hygiene, IS, OOBTC in am - Maintain sats> 92% -optiflow 40L , 75% - Sniff test pending ?? GI: Diet: Heart healthy PUD PPx: Pantoprazole Bowel regimen: Docusate ?? Endo: #Hyperglycemia, likely 2/2 stress response - Glycemic control - Lantus/SSI/NPH with steroids, increased NPH with steroids - Frequent accuchecks - Endocrine following ?? Renal: #ISRRAEL - BUN/Cr 45/1.14 - FBG euvolemic, heavily diuresis previous days - trend renal function, avoid nephrotoxins, renal dose medications - optimize electrolytes with caution to renal function ?-goal K ~4, Mg >??2.2, phos >??3, iCAL >??4.5 ?-provide supplement as needed ?-AM BMP and electrolytes check ?? #Hematuria 2/2 #Bladder tumor - (05/14) Cystoscopy for clot evacuation and cessation of bleeding sites - 05/21 Coud?? placed - Bladder scan 700ml - Urology following - Flomax ?? #High anion gap metabolic acidosis - Likely related to hypoxemia - Lactate negative - BHO negative - ABG WNL - Repeat BMP in am ?? Heme: #ABLA 2/2 surgery - No active signs of bleeding - Transfuse for hgb < 8 - CBC in am ?? DVT PPX: SCD's/Lovenox ?? ID: #COVID 19 pneumonia - WBC: 8.3 - Tmax: 36.9 -CRP 68 - Remdesivir - Dexamethasone - CBC in am - Trend WBC and fever curve ICU standards of care: Physical therapy/Activity: OOBTC Access: PICC Goals of care: Full code Community AM Assessment and plan has been reviewed with attending, Dr. German Huddleston NP Cosigned by Alexandru Porter MD at 05/22/2021 1:14 PM STAFF FORESTER F FORESTER F FORESTER * Anibal Lara MD - 05/20/2021 2:00 PM CST Hospitalist Progress Note Name: Deepak Alvarado Admission Date: 05/01/2021 Today's Date: 05/20/2021 Subjective: Pt seen and examined Clinical course: Overall pt condition has improved. Still on 4L per NC today 05/16: feels ok today, on 5L per NC 05/17: transferred to ICU for worsening respiratory distress requiring more O2 05/20: remains in the ICU, on Optiflow today Objective: Vitals: 05/20/21 1215 05/20/21 1239 05/20/21 1249 05/20/21 1300 BP: 97/58 BP Location: Patient Position: Pulse: 97 Resp: 15 Temp: TempSrc: SpO2: 93% 98% 98% Weight: Height: Wt Readings from Last 3 Encounters: 05/20/21 79.5 kg (175 lb 4.3 oz) 08/27/13 114.3 kg (252 lb) 10/19/12 111.6 kg (246 lb) I/O last 3 completed shifts: In: 1705 [P.O.:1200; I.V.:505] Out: 850 [Urine:850] I/O this shift: In: 673 [P.O.:673] Out: 250 [Urine:250] Scheduled Meds Current Facility-Administered Medications Medication Dose Route Frequency Provider Last Rate Last Admin ??? acetaminophen (TYLENOL) tablet 650 mg 650 mg oral Q6H PRN Eleonora Duarte NP 650 mg at 05/19/21 1624 ? ? al & mag hydroxide zqrwuvqlglj-swvhmkbrjrwidjv-veeeltuye-nystatin (MAGIC MOUTHWASH) suspension 1-1-1-1 20 mL swish & spit Q4H PRN Elena Kelly NP ??? albumin 5 % bottle 25 g 25 g intravenous Once Varsha Lee NP 25 g at 05/20/21 0936 ??? albuterol 2.5 mg /3 mL (0.083 %) nebulizer solution 2.5 mg 2.5 mg nebulization Q4H PRN (RT) Ralf Tomlinson MD 2.5 mg at 05/17/21 0224 ??? aspirin enteric coated tablet 81 mg 81 mg oral Daily Varsha Crowder NP 81 mg at 05/20/21 0848 ??? atorvastatin (LIPITOR) tablet 80 mg 80 mg oral Nightly Rhina Granados MD 80 mg at 05/19/212031 ??? dexAMETHasone (DECADRON) 4 mg/mL injection 6 mg 6 mg intravenous Daily Elena Kelly NP 6mg at 05/20/21 0020 ??? dextrose oral liquid liquid 15 g 15 g oral Q15 Min PRN Anibal Lara MD Or ??? dextrose (D10W) 10% bolus 250 mL 250 mL intravenous Q15 Min PRN Anibal Mon MD ??? docusate sodium (COLACE) capsule 100 mg 100 mg oral BID Rhina Granados MD 100 mg at 05/20/21 0848 ??? enoxaparin (LOVENOX) syringe 40 mg 40 mg subcutaneous Daily-2100 Rhina Granados MD 40 mg at107/19/202032 ??? glucagon injection 1 mg 1 mg intramuscular Q30 Min PRN Anibal Lara MD ??? guaiFENesin (ROBITUSSIN) 20 mg/mL oral liquid 200 mg 200 mg oral QID PRN Caleb Toth PA 200 mg at 05/19/21 1746 ??? insulin glargine (LANTUS, SEMGLEE) 100 unit/mL injection 8 Units 8 Units subcutaneous QAM Abelino Leblanc MD 8 Units at 05/20/21 0848 ??? insulin lispro (HumaLOG, ADMELOG) 100 unit/mL injection 0-12 Units 0-12 Units subcutaneous 5x daily (with meals, nightly, & 0200) Abelino Leblanc MD 11 Units at 05/20/21 1252 ??? [START ON 05/21/2021] insulin NPH (HumuLIN N, NovoLIN N) 100 unit/mL injection 8 Units 8 Units subcutaneous Daily Silviano Huddleston NP ??? ipratropium-albuteroL (DUO-NEB) 0.5-2.5 mg/3 mL nebulizer solution 3 mL 3 mL nebulization Q4H While awake (RT) Ralf Tomlinson MD 3 mL at 05/20/21 1249 ??? midodrine (PROAMATINE) tablet 15 mg 15 mg oral Q6H Rhina Granados MD 15 mg at 05/20/21 0848 ??? ondansetron (ZOFRAN) injection 4 mg 4 mg intravenous Q6H PRN Rhina Granados MD ??? pantoprazole DR (PROTONIX) extended release tablet 40 mg 40 mg oral Daily Rhina Granados MD40 mg at 05/20/21 0858 ??? polyethylene glycol (MIRALAX) packet 17 g 17 g oral Daily PRN Rhina Granados MD ??? QUEtiapine (SEROquel) tablet 25 mg 25 mg oral Nightly Rhina Granados MD 25 mg at 05/19/212031 ??? [START ON 05/21/2021] remdesivir (VEKLURY) 100 mg in sodium chloride 0.9% 250 mL IVPB 100 mg intravenous Q24H Elena Kelly, EFREN ??? sodium chloride 0.9% flush 0.5-20 mL 0.5-20 mL intra-catheter Q8H [facility] Rhina Granados MD 10 mL at 05/20/21 1356 ??? tamsulosin (FLOMAX) extended release capsule 0.4 mg 0.4 mg oral Daily with dinner Elena Kelly NP 0.4 mg at 05/19/21 1638 ??? acetaminophen ? ? al & mag hydroxide qvahbjbqoms-unwdkkedyhqghgt-rhsyxqqdx-nystatin ??? albuterol ??? dextrose OR dextrose ??? glucagon ??? guaiFENesin ??? ondansetron ??? polyethylene glycol Physical Exam: General: alert, cooperative, no distress, appears stated age HEENT: Head:normacephalic, Eyes: Perrla, EOMI bilaterally, nasal and oral mucosal pink and moist Heart: normal rate, regular rhythm, normal S1, S2, no murmurs, rubs, clicks or gallops Lungs: clear to auscultation, no wheezes or rales and unlabored breathing Abdomen: soft, nontender, nondistended, no masses or organomegaly Extremities: peripheral pulses normal, no pedal edema, no clubbing or cyanosis Neuro: alert, oriented x 3, no defects noted in general exam. Lab Data Laboratory review: Chemistry CMP: Lab Results Component Value Date ALBUMIN 3.6 05/18/2021 BUNSER 45 (H) 05/20/2021 CALCIUM 8.8 05/20/2021 CO2 21 (L) 05/20/2021 CHLORIDE 94 (L) 05/20/2021 CREATININE 1.14 05/20/2021 GLUCOSE 343 (H) 05/20/2021 GLUCOSE 186 05/20/2021 POTASSIUM 4.0 05/20/2021 SODIUM 132 (L) 05/20/2021 BILITOT 0.6 05/18/2021 PROT 7.1 05/18/2021 ALT 18 05/18/2021 AST 60 (H) 05/18/2021 ALKPHOS 86 05/18/2021 , CBC: Lab Results Component Value Date WBC 9.3 05/20/2021 RBC 3.59 (L) 05/20/2021 HGB 10.6 (L) 05/20/2021 HCT 32.5 (L) 05/20/2021 MCV 90.5 05/20/2021 MCH 29.5 05/20/2021 MCHC 32.6 05/20/2021 RDWCV 13.2 05/20/2021 RDWSD 43.9 05/20/2021 MPV 11.7 05/20/2021 NRBCABS 0.00 05/20/2021 , Coags: No results found for: PT, PTT, APTT, FFN, FIBRINOGEN, INR, ACTIVATEDCL, Lipids: No resultsfound for: CHOL, CHLPL, HDL, LDLCALC, TRIG, CHOLHDL, Cardiac Enzymes: No results found for: CKTOTAL, CKMB, CKMBINDEX, TROPONINT and POC Glucose: Lab Results Component Value Date GLUCOSE 343 (H) 05/20/2021 GLUCOSE 186 05/20/2021 Home Medications have been reviewed and updated on pt's list Assessment and Plan Acute resp failure - self ext 05/05/21 -Lung infiltrates - pulm vascular congestion versus pneumonia - completed Zosyn -COVID19 (+) 05/19 -started on Decadron and Remdesivir -pt was on BiPAP last night, today on Optiflow -pulmonology follows Near syncope/Syncope episode, probable vaso vagal, monitor ?? Acute anterior STEMI with CAD , s/p PCI to LAD -s/p CABG x 4 05/04 given re thrombosis of existing stents -s/p IABP, removed 05/06 - ASA, ??statins, off Plavix due to hematuria, BBs on hold due to hypotension ?? Post CABG cardiogenic shock, hypotensive again - s/p??Dobutamine gtt and Levophed -now on Midodrine ?? Ventricular fibrillation - briefly on 05/03 - treated with Amiodarone and Dobutamine gtt, off them ?? Gross Hematuria ?- in a pt with hx of ??cystoscopy, -clot evacuation and transurethral resection of bladder tumor at [facility] -s/p 20??German three way catheter -holding Plavix -cysto 05/14 with clot evacuation and fulguration ? Type 2 diabetes.??- Back on SSI protocol and Lantus per Endocrine ?? Acute blood loss anemia ; -s/p PRBC transfusions in ICU - monitor HH, today 10.6 ?? Mild hyponatremia, monitor ?? Hx of ??Tobacco use. ?? Vitamin-D deficiency.- stable DVT prophylaxis :Lovenox Pt will need continued inpatient management for the above medical issues. Code status: full Anibal Hughes MD [facility] Hospitalist 05/20/2021 2:00 PM F FORESTER * Yves Weinberg MD - 05/20/2021 12:33 PM CST Nephrology Progress Note [facility] SUBJECTIVE 05/20/21 Pt seen/examined. All labs and data reviewed. COVID pos. On Dex and remdisivir. On lasix drip. Na 130, Cr 1.44. 05/19 Cr 1.41 Na 130. Started on Corlanor. Appears stable. BP remains very soft. UO not accurate. 05/17 Transferred to ICU for hi O2 requirements. Has left nostril epistaxis. On low dose pressors and lasix and insulin drip. Na 128, should improve with loop diuresis. Cr 1.2. 05/16 Creatinine stable and sodium trending up.On IV lasix,lytes wnl.Osorio out,having some problems with retention- nurses in contact with urology,doing bladder scans. 05/15/21 Doing fair. Osorio out. Has not voided yet. Na 131 with loop diuresis and improved. All labs and data reviewed. Excellent UO. Doing fair. Some flank pain and mild dyspnea. Na 127 and a little lower. BP better. Agreeable to cysto, but urology planning on conservative tx. Will start loop diuresis. OBJECTIVE Vitals: Vitals: 05/20/21 1000 05/20/21 1100 05/20/21 1200 05/20/21 1215 BP: 135/81 104/61 103/65 BP Location: Patient Position: Pulse: 89 82 82 Resp: 15 28 29 Temp: TempSrc: SpO2: 93% Weight: Height: Intake/Output Summary (Last 24 hours) at 05/20/2021 1233 Last data filed at 05/20/2021 1030 Gross per 24 hour Intake 928 ml Output 1050 ml Net -122 ml REVIEW OF SYSTEMS Review of Systems Epistaxis, dyspnea. Constitutional: Negative. HENT: Negative. Eyes: Negative. Respiratory: Negative. Cardiovascular: Negative. Gastrointestinal: Negative. Genitourinary: Negative. Musculoskeletal: Negative. Skin: Negative. Allergic/Immunologic: Negative. Hematological: Negative. All other systems reviewed and are negative. PHYSICAL EXAM Physical Exam Constitutional: Appears well-developed. O2 on HENT: wnl Head: Normocephalic. Eyes: Pupils are equal, round, and reactive to light. Neck: Normal range of motion. Neck supple. Cardiovascular: Normal rate. Pulmonary/Chest: Effort normal and breath sounds normal. Abdominal: Soft. NT,active BS Musculoskeletal: Normal range of motion. Neurological: Alert, oriented. Skin: Skin is warm. Nursing note and vitals reviewed. MEDICATIONS Current Facility-Administered Medications: ??? acetaminophen (TYLENOL) tablet 650 mg, 650 mg, oral, Q6H PRN, Eleonora Duarte NP, 650 mg at 05/19/21 1624 ? ? al & mag hydroxide lioeqobcslo-yjnzblqopkvnoob-aenluykws-nystatin (MAGIC MOUTHWASH) suspension 1-1-1-1, 20 mL, swish & spit, Q4H PRN, Elena Kelly NP ??? albumin 5 % bottle 25 g, 25 g, intravenous, Once, Varsha Lee NP, 25 g at 05/20/21 0936 ??? albuterol 2.5 mg /3 mL (0.083 %) nebulizer solution 2.5 mg, 2.5 mg, nebulization, Q4H PRN (RT),Ralf Tomlinson MD, 2.5 mg at 05/17/21 0224 ??? aspirin enteric coated tablet 81 mg, 81 mg, oral, Daily, Varsha Crowder NP, 81 mg at 05/20/21 0848 ??? atorvastatin (LIPITOR) tablet 80 mg, 80 mg, oral, Nightly, Rhina Granados MD, 80 mg at 05/19/212031 ??? dexAMETHasone (DECADRON) 4 mg/mL injection 6 mg, 6 mg, intravenous, Daily, Elena Kelly NP, 6 mg at 05/20/21 0020 ??? dextrose oral liquid liquid 15 g, 15 g, oral, Q15 Min PRN OR dextrose (D10W) 10% bolus 250 mL, 250 mL, intravenous, Q15 Min PRN, Anibal Lara MD ??? docusate sodium (COLACE) capsule 100 mg, 100 mg, oral, BID, 100 mg at 05/20/21 0848 OR [DISCONTINUED] docusate (COLACE) 10 mg/mL oral liquid 100 mg, 100 mg, feeding tube, BID, Rhina Granados MD, 100 mg at 05/05/21 0842 ??? enoxaparin (LOVENOX) syringe 40 mg, 40 mg, subcutaneous, Daily-2100, Rhina Granados MD, 40 mg at 05/19/212032 ??? glucagon injection 1 mg, 1 mg, intramuscular, Q30 Min PRN, Anibal Lara MD ??? guaiFENesin (ROBITUSSIN) 20 mg/mL oral liquid 200 mg, 200 mg, oral, QID PRN, Caleb Toth PA, 200 mg at 05/19/21 1746 ??? insulin glargine (LANTUS, SEMGLEE) 100 unit/mL injection 8 Units, 8 Units, subcutaneous, QABenji Farid, MD, 8 Units at 05/20/21 0848 ??? insulin lispro (HumaLOG, ADMELOG) 100 unit/mL injection 0-12 Units, 0-12 Units, subcutaneous, 5x daily (with meals, nightly, & 0200), Abelino Leblanc MD, 4 Units at 05/20/21 0928 ??? insulin NPH (HumuLIN N, NovoLIN N) 100 unit/mL injection 5 Units, 5 Units, subcutaneous, Daily,Elena Kelly NP, 5 Units at 05/20/21 0021 ??? ipratropium-albuteroL (DUO-NEB) 0.5-2.5 mg/3 mL nebulizer solution 3 mL, 3 mL, nebulization, Q4H While awake (RT), Ralf Tomlinson MD, 3 mL at 05/20/21 0959 ??? midodrine (PROAMATINE) tablet 15 mg, 15 mg, oral, Q6H, Rhina Granados MD, 15 mg at 848 ??? ondansetron (ZOFRAN) injection 4 mg, 4 mg, intravenous, Q6H PRN, Rhina Granados MD ??? pantoprazole DR (PROTONIX) extended release tablet 40 mg, 40 mg, oral, Daily, Rhina Granados MD, 40 mg at 05/20/21 0858 ??? polyethylene glycol (MIRALAX) packet 17 g, 17 g, oral, Daily PRN, Rhina Granados MD ??? QUEtiapine (SEROquel) tablet 25 mg, 25 mg, oral, Nightly, Rhina Granados MD, 25 mg at 05/19/212031 ??? [START ON 05/21/2021] remdesivir (VEKLURY) 100 mg in sodium chloride 0.9% 250 mL IVPB, 100 mg, intravenous, Q24H, Elena Kelly NP ??? sodium chloride 0.9% flush 0.5-20 mL, 0.5-20 mL, intra-catheter, Q8H LEAH, Rhina Granados MD, 20 mL at 05/20/21 0620 ??? tamsulosin (FLOMAX) extended release capsule 0.4 mg, 0.4 mg, oral, Daily with dinner, Elena Kelly, EFREN, 0.4 mg at 05/19/21 1638 Lab/Radiology/Diagnostic Review: Recent Results (from the past 24 hour(s)) POCT glucose Collection Time: 05/19/21 1:00 PM Result Value Ref Range Glucose, POC 239 (H) 70 - 199 mg/dL POCT glucose Collection Time: 05/19/21 4:31 PM Result Value Ref Range Glucose, POC 203 (H) 70 - 199 mg/dL Basic metabolic panel Collection Time: 05/19/21 4:45 PM Result Value Ref Range Sodium 130 (L) 135 - 145 mmol/L Potassium, pl 4.0 3.3 - 4.9 mmol/L Chloride 91 (L) 97 - 110 mmol/L CO2 21 (L) 22 - 32 mmol/L Anion gap 18 (H) 2 - 15 mmol/L BUN 51 (H) 8 - 25 mg/dL Creatinine 1.44 (H) 0.80 - 1.30 mg/dL Glucose 213 (H) 70 - 199 mg/dL Calcium 8.8 8.5 - 10.3 mg/dL eGFR Collection Time: 05/19/21 4:45 PM Result Value Ref Range eGFR 53 mL/min/1.73 m2 POCT glucose Collection Time: 05/19/21 8:37 PM Result Value Ref Range Glucose, POC 165 70 - 199 mg/dL Influenza A/B, RSV, and COVID-19 PCR Nasopharyngeal Collection Time: 05/19/21 8:54 PM Specimen: Nasopharyngeal Result Value Ref Range COVID-19 RNA Positive (A) Negative Influenza A RNA Negative Negative Influenza B RNA Negative Negative RSV RNA Negative Negative First COVID-19 test? No Employeed in healthcare? No Group care resident? No Hospitalized? Yes Is patient in ICU? Yes Symptomatic as defined by CDC? Yes Basic metabolic panel Collection Time: 05/20/21 12:25 AM Result Value Ref Range Sodium 131 (L) 135 - 145 mmol/L Potassium, pl 3.7 3.3 - 4.9 mmol/L Chloride 95 (L) 97 - 110 mmol/L CO2 21 (L) 22 - 32 mmol/L Anion gap 15 2 - 15 mmol/L BUN 47 (H) 8 - 25 mg/dL Creatinine 1.05 0.80 - 1.30 mg/dL Glucose 173 70 - 199 mg/dL Calcium 8.4 (L) 8.5 - 10.3 mg/dL eGFR Collection Time: 05/20/21 12:25 AM Result Value Ref Range eGFR 77 mL/min/1.73 m2 POCT glucose Collection Time: 05/20/21 1:28 AM Result Value Ref Range Glucose, POC 155 70 - 199 mg/dL Phosphorus Collection Time: 05/20/21 3:28 AM Result Value Ref Range Phosphorus, pl 3.2 2.3 - 4.5 mg/dL Magnesium Collection Time: 05/20/21 3:28 AM Result Value Ref Range Magnesium 2.4 1.4 - 2.5 mg/dL CBC without differential Collection Time: 05/20/21 3:28 AM Result Value Ref Range WBC 9.3 3.8 - 9.9 K/cumm Hgb 10.6 (L) 13.0 - 17.5 g/dL Hct 32.5 (L) 38.9 - 50.3 % Plt 381 150 - 400 K/cumm MPV 11.7 9.1 - 12.3 fL RBC 3.59 (L) 4.30 - 5.80 M/cumm MCV 90.5 81.3 - 96.4 fL MCH 29.5 27.1 - 33.3 pg MCHC 32.6 32.3 - 35.7 g/dL RDW CV 13.2 11.1 - 14.9 % RDW SD 43.9 35.7 - 48.1 fL NRBC abs 0.00 0.00 - 0.01 K/cumm Basic metabolic panel Collection Time: 05/20/21 3:28 AM Result Value Ref Range Sodium 132 (L) 135 - 145 mmol/L Potassium, pl 4.0 3.3 - 4.9 mmol/L Chloride 94 (L) 97 - 110 mmol/L CO2 21 (L) 22 - 32 mmol/L Anion gap 17 (H) 2 - 15 mmol/L BUN 45 (H) 8 - 25 mg/dL Creatinine 1.14 0.80 - 1.30 mg/dL Glucose 186 70 - 199 mg/dL Calcium 8.8 8.5 - 10.3 mg/dL eGFR Collection Time: 05/20/21 3:28 AM Result Value Ref Range eGFR 70 mL/min/1.73 m2 CRP (acute phase) Collection Time: 05/20/21 3:28 AM Result Value Ref Range CRP 68.7 (H) <=10.0 mg/L POCT glucose Collection Time: 05/20/21 9:02 AM Result Value Ref Range Glucose, POC 238 (H) 70 - 199 mg/dL XR Chest 1 View - Portable - in AM Result Date: 05/11/2021 Narrative: EXAMINATION: XR CHEST 1 VIEW HISTORY: The patient is a 60-year-old male who has had cardiac surgery. Comparison made with the previous study dated 05/10/2021. TECHNIQUE: AP portable view of the chest. FINDINGS: Lungs clear. Heart not enlarged. Aortic atherosclerosis. No failure. The right IJ [place] catheter has been retracted with its tip in the distal superior vena cava. Impression: IMPRESSION: No failure. Electronically signed by: Elvira Blackman M.D. XR Chest 1 View - Portable - in AM Result Date: 05/10/2021 Narrative: EXAMINATION: XR CHEST 1 VIEW DATE: 05/10/2021 2:40 AM COMPARISON: 05/09/2021 HISTORY: 60-year-old man cardiac surgery follow-up FINDINGS:Compared with study the previous day, significant improvement. There is cardiomegaly with postsurgical changes with continued and decreasing failure. Bibasilar atelectasis with left pleural fluid decreasing. No pneumothorax. [place] catheter remainsin place Impression: Decreasing failure, atelectasis and left effusion. Electronically signed by: Deandre Lomeli M.D. XR Chest 1 View - Portable - in AM Result Date: 05/09/2021 Narrative: EXAMINATION: XR CHEST 1 VIEW DATE: 05/09/2021 4:10 AM HISTORY: 60-year-old man cardiac surgery follow-up FINDINGS:Compared with study the previous day, significant improvement. There is cardiomegaly with postsurgical changes with continued but decreasing failure. Bibasilar atelectasis with left pleural fluid decreasing. No pneumothorax. [place] catheter remains in place Impression: Decreasing failure, atelectasis and left effusion. Electronically signed by: Deandre Lomeli M.D. XR Chest 1 View - Portable - in AM Result Date: 05/08/2021 Narrative: EXAMINATION: XR CHEST 1 VIEW DATE: 05/08/2021 4:15 AM HISTORY: 60-year-old man cardiac surgery follow-up FINDINGS:Compared with study the previous day, significant improvement. There is cardiomegaly with postsurgical changes with continued but decreasing failure. Bibasilar atelectasis with left pleural fluid. No pneumothorax. [place] catheter remains in place Impression: Decreasing failure. No pneumothorax. Electronically signed by: Deacon Cummings M.D. XR Chest 1 View - Portable - in AM Result Date: 05/07/2021 Narrative: EXAMINATION: XR CHEST 1 VIEW DATE: 05/07/2021 3:55 AM HISTORY: 60-year-old man follow-upcardiac surgery FINDINGS:Compared with study of the previous day, postsurgical changes in the heartand mediastinum with cardiomegaly are stable. [place] catheter remains in place. Left thoracostomy tube remains in place. No pneumothorax. Pulmonary vascular congestion with interstitial lung disease remain prominent. Impression: Persistent prominent interstitial lung disease with failure. Electronically signed by: Deacon Cummings M.D. XR Chest 1 View - Portable - in AM Result Date: 05/06/2021 Narrative: EXAMINATION: XR CHEST 1 VIEW DATE: 05/06/2021 4:05 AM INDICATION: Cardiac surgery. COMPARISON: 05/05/2021. FINDINGS: No pneumothorax or pleural effusion. Similar-appearing pulmonary vascular congestion and interstitial opacities most notable in the bilateral upper lobes consistent with pulmonary edema. Pulmonary catheter catheter, left thoracostomy tube, and mediastinal drain are appropriately position. Intra-aortic balloon pump is appropriately positioned. Interval removal of endotracheal tube. Impression: 1. Interval removal of endotracheal tube. Remaining tubes and lines are appropriately positioned. 2. Similar-appearing cardiomegaly, pulmonary vascular congestion, and prominent bilateralinterstitial markings suggestive of interstitial pulmonary edema. Electronically signed by: Richard Zhao II, D.O. XR Chest 1 View - Portable - in AM Result Date: 05/05/2021 Narrative: EXAMINATION: XR CHEST 1 VIEW DATE: 05/05/2021 4:15 AM HISTORY: 60-year-old man cardiac surgery follow-up FINDINGS:Compared with the study of the prior day, tubes and catheters remain satisfactorily positioned. Worsening pulmonary vascular congestive changes are seen. Cardiomegaly with postsurgical changes stable. No pneumothorax. Impression: Increasing failure. Electronically signed by: Deacon Cummings M.D. XR Chest 1 Vw Portable Result Date: 05/05/2021 Narrative: EXAMINATION: XR CHEST 1 VIEW DATE: 05/04/2021 8:40 PM HISTORY: 60-year-old man coronary artery bypass follow-up FINDINGS:Compared with the study of earlier the same day, postsurgical changes now evident within the heart and mediastinum with cardiomegaly. Interval placement of endotracheal tube, nasogastric tube, [place] catheter, left thoracostomy tube and mediastinal drain all in satisfactory position. No pneumothorax. Interstitial lung disease with mild pulmonary vascular congestive changes. Aortic balloon pump is no longer seen. Impression: Tube placements with postsurgical changes with cardiomegaly with interstitial lung disease and mild failure with no pneumothorax. Electronically signed by: Deacon Cummings M.D. XR Chest 1 Vw Portable Result Date: 05/04/2021 Narrative: EXAMINATION: XR CHEST 1 VIEW DATE: 05/04/2021 9:05 AM HISTORY: Coronary artery disease FINDINGS:Comparison is made with study of 2 days earlier. Cardiomegaly, COPD with interstitial lung disease stable. Mild failure. Aortic balloon pump stable in position at the proximal descending aorta. No pneumothorax. No new infiltrates. Impression: Stable appearance. COPD cardiomegaly, with mild failure suspected. Electronically signed by: Deacon Cummings M.D. XR Chest 1 Vw Portable Result Date: 05/02/2021 Narrative: EXAMINATION: XR CHEST 1 VIEW DATE: 05/02/2021 5:15 AM INDICATION: Intra-aortic balloon pump. COMPARISON: 05/01/2021. FINDINGS: Appropriately positioned intra-aortic balloon pump appears unchanged. No pneumothorax or pleural effusion. Mixed reticular and alveolar opacities demonstrated inall lung lobes appear most significant in the upper lobes and perihilar regions, unchanged. Impression: 1. Appropriately positioned intra-aortic balloon pump. 2. Similar mixed reticular and alveolar opacities most notable in the bilateral upper lobes and perihilar region. Electronically signed by: Richard Lopez II, D.O. XR Chest 1 Vw Portable Result Date: 05/02/2021 Narrative: EXAMINATION: XR CHEST 1 VIEW DATE: 05/01/2021 8:15 PM INDICATION: Hypoxia. COMPARISON: None. FINDINGS: No pneumothorax. No pleural effusion. Mixed reticular and alveolar opacities are demonstrated in all lung lobes but demonstrate an upper lobe and perihilar predominance. Findings may represent pulmonary edema on background of centrilobular emphysematous changes. Underlying infectious process not entirely excludable. Cardiac mediastinal silhouette is stable in appearance. No acute osseous abnormality. Impression: Mixed reticular and alveolar opacities are demonstrated in all lung lobes but demonstrate an upper lobe and perihilar predominance. Findings may represent pulmonary edema on background ofcentrilobular emphysematous changes. Electronically signed by: Richard Lopez II, D.O. Transthoracic Echo (TTE) Limited Result Date: 05/07/2021 Narrative: [place] [address] Limited Echocardiogram Report Patient Name: DEEPAK ALVARADO : 1960 StudyDate: 05/07/2021 12:16:52 PM Gender: M Tech: Location: [id number] Ref.Provider: RHINA GRANADOS Height(Cm): 175 BSA: 2.1 Weight(Kg): 91 Heart Rate: 82 BP: 127/44 Quality: Good Order Provider: Dr. Sutton Procedures: Echocardiographic Report: Limited transthoracic echocardiogram with 2D and M-Mode. Measurements: 2D/M Mode Measurement Value Normal Range LVIDd 2D 3.43 [ 4.20 -5.90 ] cm LVIDs 2D 2.59 [ 2.30 - 3.90 ] cm LVPWd 2D 1.01 [ 0.60 - 1.00 ] cm IVSd 2D 0.71 [ 0.60 - 0.90 ] cm Findings: Left Ventricle: Reduced left ventricular cavity size. Mild global left ventricular systolic dysfunction. Ejection fraction is measured at 42 %. These segments of the LV are hypokinetic: apical anterior segment. Pericardium: Trivial pericardial effusion. No echocardiographic evidence to suggest pericardial tamponade. Conclusions: Reduced left ventricular cavity size. Mild global left ventricular systolic dysfunction. Ejection fraction is measured at 42 %. These segments of the LV are hypokinetic: apical anterior segment. Trivial pericardial effusion. No echocardiographic evidence to suggest pericardial tamponade. Electronically Signed By: Gianni Francois MD, [facility] :54:09 STAFF FORESTER Transthoracic Echo Complete W Doppler/CF Result Date: 05/02/2021 Narrative: [place] [address] Echocardiogram Report Patient Name: DEEPAK ALVARADO W : 1960 Study Date: 05/02/2021 8:50:02 AM Gender: M Tech: Location: [id number] Ref Provider: NALINI CLAYTONHeight(Cm): 175 BSA: 2.11 Weight(Kg): 92 Heart Rate: 89 BP: 102/52 Quality: Good Order Provider: NALINI CLAYTON PROCEDURES: Echocardiographic Report: Transthoracic echocardiogram with complete 2D, M-Mode, and color Doppler examination. INDICATIONS: Free Text. Measurements: 2D/M Mode DopplerMeasurement Value Normal Range Measurement Value Normal Range EF Teich 2D 30.0 [ 55.0 - 70.0 ] percent CHRISTINA Vmax 2.04 [ 2.00 - 4.00 ] cm2 EF Mod 4C 42.2 [ 55.0 - 70.0 ] percent AV Mean PG 5 [ 2 - 4 ]mmHg LVIDd 2D 4.54 [ 4.20 - 5.90 ] cm AV Peak Ramesh 1.54 [ 1.00 - 1.70 ] m/s LVIDs 2D 3.91 [ 2.30 - 3.90 ] cm AV VTI 26.93 cm LVPWd 2D 0.92 [ 0.60 - 1.00 ] cm LVOT Diam 2.20 [ 1.70 - 2.10 ] cm IVSd 2D 0.76 [ 0.60 - 0.90 ] cm LVOT Peak Ramesh 0.83 [ 0.70 - 1.10 ] m/s LA Dimension MM 5.08 [ 3.00 - 4.00 ] cm LVOT VTI 13.82 [ 20.00 - 30.00 ] cm AoR Diam MM 4.12 [ 2.60 - 3.70 ] cm MV E Peak Ramesh 0.85 [ 0.60- 1.30 ] m/s LA Volume Index 20.83 [ 16.00 - 28.00 ] cc/m2 MV A Peak Ramesh 1.14 [ 1.00 - 1.20 ] m/s ACS MM 1.91 [ 1.50 - 2.60 ] cm MV Mean PG 1 [ <= 5 ] mmHg MV PHT 43 [ 20 - 100 ] msec MVA 2.20 MV Decel Time 137 [ 104 - 258 ] msec PV Peak Ramesh 1.10 [ 0.40 - 0.80 ] m/s TR Peak Ramesh 1.32 [ 1.00 - 2.80 ] m/s TR Peak PG 7 mmHg RVSP 16.93 [ 10.00 - 36.00 ] mmHg E' 0.06 E/E' 14.00 Measurement Value Normal Range Measurement Value Normal Range 2D/M Mode Doppler - FINDINGS: Atrial Septum: Normal atrial septum. Left Ventricle: Normal left ventricular size. Left ventricle not well visualized. Thereis severe hypokinesis of the mid anteroseptal, anterior, and apical [place]. Normal left ventricular wall thickness. Impaired diastolic relaxation Grade I. Ejection fraction is visually estimated at 40%. Left Atrium: The left atrium is normal in size. Right Ventricle: Normal right ventricular size. Normal right ventricular systolic function. Right Atrium: The right atrium is normal in size. Aortic Valve: Normal structure of the aortic valve. No evidence of hemodynamically significant aortic stenosis by Doppler. No aortic regurgitation. Mitral Valve: Normal structure of the mitral valve. Trivial regurgitation of the mitral valve. Pulmonic Valve: Pulmonic valve not well visualized. Trivial regurgitation in the pulmonic valve. Tricuspid Valve: Normal structure of the tricuspid valve. Trivial regurgitation in the tricuspid valve. Pericardium: Normal pericardium with no significant pericardial effusion. Aorta: Normal aortic root. IVC: Normal size and normal respiratory collapse consistent with normal right atrial pressure (<5 mmHg). CONCLUSIONS: Technically difficult study with limitedviews. Normal left ventricular size. Left ventricle not well visualized. There is severe hypokinesis of the mid anteroseptal, anterior, and apical manc[place]. Normal left ventricular wall thickness. Impaired diastolic relaxation Grade I. Ejection fraction is visually estimated at 40 %. Normal right ventricular size. Normal right ventricular systolic function. Normal structure of the mitral valve. Trivi al regurgitation of the mitral valve. Normal structure of the tricuspid valve. Trivial regurgitation in the tricuspid valve. Electronically Signed By: Rylee Brito DO, FAC, [facility] 2021-05-02 14:07:25 STAFF FORESTER CC: CC: CC: ASSESSMENT/PLAN Hyponatremia from SIADH and possibly from zaroxylyn use. Work up for hyponatremia ongoing. PO FR. DC Zaroxylyn. No normotonic fluids yet. Urine lytes and osm. If in clinical fluid overload, can use tolvaptan. Renal fn is mildly worse but acceptable. Na better with loop diuresis, will continue. ?? Recent bladder tumor removal with hematuria. ?? -??Urology is following.H/H stable -Cysto vs conservative tx. -Voiding trial, hematuria has stopped. -Epistaxis Use nasal pillows. -CHF with decompensation Continue diuresis. RHC not done. Agree with Corlanor. ?? Hypokalemia from diuresis. Replace PRN. ?? 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 COVID positive. Per protocol. On Remdisivir and Dex. ?? Syncopal episode -(+) orthostasis -receiving albumin -IV lasix was discontinued. ??There is a 1x order for zaroxolyn 10mg this am- recommend holding fornow. ??D/w RN ?? Coronary artery disease -s/p CABG post STEMI -??underwent four-vessel bypass ??MAE to the LAD, sequential saphenous vein graft to diagonal and obtuse marginal and a vein graft to the PDA. -s/p??low dose dobutamine -paced rhythm -??IV??diuretics??discontinued d/t syncopal episode today (see above) ?? Moderate LV dysfunction -s/p IV??lasix??and??low dose??dobutamine -Beta blockers, ??[place] once off dobutamine-would hold off adding given syncopal episode this am -repeat ECHO 05/07 EF 42% (see above) ?Nonsustained ventricular tachycardia -no recurrence of VT -K 3.7, Mg??2.0. ??Supplement to keep K >/= 4.0, Mg >/= 2.0 ?Diabetes mellitus -?on lantus and SSI ?? COPD: ?? -on?O2 NC??4L (dried blood to L nare humidified o2 ordered) ?? Dyslipidemia -?Continue atorvastatin. ?PAD -?Stable ? Anemia -Hb??11.4 (10.5)??(8.6) -monitor ?? I can be reached at [phone] with any concerns. Thank you Rhina Granados MD for the consult. Yves Weinberg MD [employer] [phone] F FORESTER * Ralf Tomlinson MD - 05/20/2021 11:21 AM CST Pulmonary Daily Progress Chief complaint/reason for consult: Respiratory failure. Interval History: Noted to be COVID positive yesterday Oxygen requirements increased overnight, put on optiflow Alert Afebrile No sputum or chest pain Presenting History: 60 yo man w COPD, DM, CAD/stents admitted 05/01/21 with chest pain. Had recent hematuria as well. Workup revealed an acute MT. Cath showed multi-vessel CAD. Had balloon pump placed. CABG x 4 done on 05/04/21. He was continued on mechanical ventilation and self extubated this AM (05/05/21). He is on multiple pressors. Sedated with precedex. Some tachypnea. A balloon pump is in place. Current tobacco use. COPD listed as prior diagnosis. No inhalers on home med list. Allergies: Allergies Allergen Reactions ??? Metoclopramide Medications: Scheduled Meds:albumin, 25 g, intravenous, Once aspirin, 81 mg, oral, Daily atorvastatin, 80 mg, oral, Nightly dexAMETHasone, 6 mg, intravenous, Daily docusate sodium, 100 mg, oral, BID enoxaparin, 40 mg, subcutaneous, Daily-2100 insulin glargine, 8 Units, subcutaneous, QAM insulin lispro, 0-12 Units, subcutaneous, 5x daily (with meals, nightly, & 0200) insulin NPH, 5 Units, subcutaneous, Daily ipratropium-albuteroL, 3 mL, nebulization, Q4H While awake (RT) midodrine, 15 mg, oral, Q6H pantoprazole DR, 40 mg, oral, Daily QUEtiapine, 25 mg, oral, Nightly [START ON 05/21/2021] remdesivir, 100 mg, intravenous, Q24H sodium chloride 0.9%, 0.5-20 mL, intra-catheter, Q8H LEAH tamsulosin, 0.4 mg, oral, Daily with dinner Continuous Infusions: PRN Meds:.??? acetaminophen ? ? al & mag hydroxide jbqedrkqvfk-exnmxoseccafomc-nwjpxmkfv-nystatin ??? albuterol ??? dextrose OR dextrose ??? glucagon ??? guaiFENesin ??? ondansetron ??? polyethylene glycol ROS Above review of system reviewed on 05/20/2021 Vitals: Vitals: 05/20/21 0900 05/20/21 0959 05/20/21 1000 05/20/21 1100 BP: 107/68 135/81 104/61 BP Location: Patient Position: Pulse: 86 89 82 Resp: 19 15 28 Temp: TempSrc: SpO2: 98% Weight: Height: Temp (24hrs), Av.6 ??C (97.9 ??F), Min:36.4 ??C (97.5 ??F), Max:36.9 ??C (98.4 ??F) FiO2 (%): [60 %-80 %] 60 % Intake/Output Summary (Last 24 hours) at 05/20/2021 1121 Last data filed at 05/20/2021 1030 Gross per 24 hour Intake 928 ml Output 1050 ml Net -122 ml Physical Exam Constitutional: General: He is not in acute distress. Appearance: He is well-developed. HENT: Head: Normocephalic and atraumatic. Eyes: Conjunctiva/sclera: Conjunctivae normal. Neck: Thyroid: No thyromegaly. Cardiovascular: Rate and Rhythm: Normal rate and regular rhythm. Heart sounds: No murmur heard. Pulmonary: Effort: Pulmonary effort is normal. No respiratory distress. Breath sounds: Normal breath sounds. No stridor. No wheezing, rhonchi or rales. Chest: Comments: Sternotomy incision Abdominal: General: Bowel sounds are normal. Palpations: Abdomen is soft. Skin: General: Skin is warm and dry. Neurological: Mental Status: He is alert. Lab/Radiology/Diagnostic Review: Labs: Recent Labs Lab Units 05/20/21 0328 05/19/21 0456 05/18/21 0204 05/17/21 0333 05/17/21 0333 WBC K/cumm 9.3 8.0 7.6 < > 8.7 HEMOGLOBIN g/dL 10.6* 9.8* 11.2* < > 11.3* HEMATOCRIT % 32.5* 29.1* 33.0* < > 33.8* PLATELETS K/cumm 381 308 278 < > 267 NEUTROS PCT % -- -- -- -- 78.4 LYMPHS PCT % -- -- -- -- 11.7 MONOS PCT % -- -- -- -- 9.0 EOS PCT % -- -- -- -- 0.1 < > = values in this interval not displayed. Recent Labs Lab Units 05/20/21 0902 05/20/21 0328 05/20/21 0128 05/20/21 0025 05/19/21 2037 05/19/21 1645 05/19/21 0143 05/18/21 2137 05/17/21 0936 05/17/21 0333 SODIUM mmol/L -- 132* -- 131* -- 130* < > -- < > 133* POTASSIUM PLASMA mmol/L -- 4.0 -- 3.7 -- 4.0 < > -- < > 2.6* CHLORIDE mmol/L -- 94* -- 95* -- 91* < > -- < > 92* CO2 mmol/L -- 21* -- 21* -- 21* < > -- < > 22 ANIONGAP mmol/L -- 17* -- 15 -- 18* < > -- < > 19* GLUCOSE mg/dL -- 186 -- 173 < > 213* < > -- < > 157 POC GLUCOSE MONITOR mg/dL 238* -- 155 -- < > -- < > -- < > -- BUN SERUM mg/dL -- 45* -- 47* -- 51* < > -- < > 25 CREATININE mg/dL -- 1.14 -- 1.05 -- 1.44* < > -- < > 1.06 CALCIUM mg/dL -- 8.8 -- 8.4* -- 8.8 < > -- < > 8.3* ALBUMIN g/dL -- -- -- -- -- -- -- 3.6 -- 3.5 ALK PHOS Units/L -- -- -- -- -- -- -- 86 -- 94 ALT Units/L -- -- -- -- -- -- -- 18 -- 20 AST Units/L -- -- -- -- -- -- -- 60* -- 64* BILIRUBIN TOTAL mg/dL -- -- -- -- -- -- -- 0.6 -- 0.7 < > = values in this interval not displayed. Recent Labs Lab Units 05/18/21195205/17/21219 PH ART 7.45 7.50* PCO2 ART mmHg 32* 27* PO2 ART mmHg 58* 72* HCO3 ART (CALC) mmol/L 23 24 BASE EXC ART mmol/L -2 -2 O2 SAT ART (JOELLE) % 89* 96* Imaging: CT chest 05/19/21: b gg inf, severe emphysema Other diagnostic tests: I have personally reviewed above laboratory findings, chest imaging, and diagnostic tests 05/20/2021 Assessment and Plan: Acute respiratory failure Acute MT w CAD s/p CABG x 4 on 05/04/21, past hx multiple stents Cardiogenic shock, resolved Cardiomyopathy EF 40% V fib COPD: severe emphysematous changes on CT Anemia Hematuria s/p cystoscopy/fulguration COVID 19, diagnosed 05/19/21, resp status began worsening 05/15/21 ?? Recs: Oxygen support, wean as able Dexamethasone started 05/19 Incentive spirometry abx coverage for pna: Zosyn, completed Scheduled bronchodilators Increase activity as tolerated Chart reviewed F FORESTER * Nasima Watson MD - 05/20/2021 10:39 AM CST Daily Progress SUBJECTIVE: S/P CABG # 19 Sitting in bed Intermittent SOB No chest pain COVID positive In isolation room CXR - Persistent ill-defined patchy left perihilar upper and lower lobe alveolar infiltrate and mild on the right OBJECTIVE: Vitals: 05/20/21 0300 05/20/21 0400 05/20/21 0515 05/20/21 0959 BP: 93/55 108/71 Pulse: 81 83 Resp: 19 17 Temp: 36.9 ??C (98.4 ??F) TempSrc: Oral SpO2: 98% Weight: 79.5 kg (175 lb 4.3 oz) Height: Intake/Output Summary (Last 24 hours) at 05/20/2021 1039 Last data filed at 05/20/2021 0420 Gross per 24 hour Intake 610 ml Output 800 ml Net -190 ml Scheduled Medications Medication Dose Route Frequency ??? albumin 5 % bottle 25 g 25 g intravenous Once ??? aspirin enteric coated tablet 81 mg 81 mg oral Daily ??? atorvastatin (LIPITOR) tablet 80 mg 80 mg oral Nightly ??? dexAMETHasone (DECADRON) 4 mg/mL injection 6 mg 6 mg intravenous Daily ??? docusate sodium (COLACE) capsule 100 mg 100 mg oral BID ??? enoxaparin (LOVENOX) syringe 40 mg 40 mg subcutaneous Daily-2100 ??? insulin glargine (LANTUS, SEMGLEE) 100 unit/mL injection 8 Units 8 Units subcutaneous QAM ??? insulin lispro (HumaLOG, ADMELOG) 100 unit/mL injection 0-12 Units 0-12 Units subcutaneous 5x daily (with meals, nightly, & 0200) ??? insulin NPH (HumuLIN N, NovoLIN N) 100 unit/mL injection 5 Units 5 Units subcutaneous Daily ??? ipratropium-albuteroL (DUO-NEB) 0.5-2.5 mg/3 mL nebulizer solution 3 mL 3 mL nebulization Q4H While awake (RT) ??? midodrine (PROAMATINE) tablet 15 mg 15 mg oral Q6H ??? pantoprazole DR (PROTONIX) extended release tablet 40 mg 40 mg oral Daily ??? QUEtiapine (SEROquel) tablet 25 mg 25 mg oral Nightly ??? [START ON 05/21/2021] remdesivir (VEKLURY) 100 mg in sodium chloride 0.9% 250 mL IVPB 100 mg intravenous Q24H ??? sodium chloride 0.9% flush 0.5-20 mL 0.5-20 mL intra-catheter Q8H LEAH ??? tamsulosin (FLOMAX) extended release capsule 0.4 mg 0.4 mg oral Daily with dinner LABS: Recent Labs Lab Units 05/20/21 0328 WBC K/cumm 9.3 HEMOGLOBIN g/dL 10.6* HEMATOCRIT % 32.5* PLATELETS K/cumm 381 Recent Labs Lab Units 05/20/21 0902 05/20/21 0328 05/20/21 0128 05/19/21 0143 05/18/21 2137 SODIUM mmol/L -- 132* -- < > -- POTASSIUM PLASMA mmol/L -- 4.0 -- < > -- CHLORIDE mmol/L -- 94* -- < > -- CO2 mmol/L -- 21* -- < > -- ANIONGAP mmol/L -- 17* -- < > -- GLUCOSE mg/dL -- 186 -- < > -- POC GLUCOSE MONITOR mg/dL 238* -- < > < > -- BUN SERUM mg/dL -- 45* -- < > -- CREATININE mg/dL -- 1.14 -- < > -- CALCIUM mg/dL -- 8.8 -- < > -- ALBUMIN g/dL -- -- -- -- 3.6 ALK PHOS Units/L -- -- -- -- 86 ALT Units/L -- -- -- -- 18 AST Units/L -- -- -- -- 60* BILIRUBIN TOTAL mg/dL -- -- -- -- 0.6 < > = values in this interval not displayed. No results found for: BNP No results found for: TROPONINI Exam General: comfortable Neuro: Alert and oriented x 3, moves all extremities well HEENT: normocephalic, atraumatic, Lungs: symmetric, unlabored, clear to auscultation bilaterally Heart: S1,S2, regular rate & rhythm, no murmurs, rubs, or gallops Abdomen: soft, non-tender, non-distended, bowel sounds present Extremities: no LE edema, palpable peripheral pulses BL ASSESSMENT/PLAN: 1. CAD status post CABG for STEMI -Cardiac cath on 05/01 with 40% distal LM; 100% prox LAD; 90% prox Cx; 50% prox and distal RCA -Left ventriculogram:??Moderate blanka-apical hypokinesis; echo on 05/02 with EF ~40% -balloon angioplasty was performed during acute MT and subsequently patient underwent CABG x4 on 05/04/2021 - ischemic cardiomyopathy EF 42%?? -clinically stable 2. Hypotensive and not on any chf meds On midodrine Off norepi 3. Fluid overload Lasix drip ?? 2. Dyslipidemia: -stable on Atorvastatin 80mg qday ?? 3. Diabetes -stable on insulin per primary team ?? 4. COPD: -stable without any acute issues ?? 5. PAD: - stable ?? 6. Hematuria- -Plavix is currently on hold??urology following??- -S/P cystoscopy 05/14 Approximately 500-600 mL of clots in the bladder evacuated. -improved 7. Respiratory failure -clinically stable Transferred to icu on 05/17 for increased O2 requirements Pulmonary following 8. COVID positive -on dexamethasone and remdesivir Nasima Watson MD, [facility] 05/20/2021 10:39 AM F FORESTER * Rhina Granados MD - 05/20/2021 10:23 AM CST Cardiothoracic Surgery Progress Note Deepak Alvarado 1960 Hospital DAY#19 Sixteen days postop urgent Coronary Artery Bypass Graft x4 Subjective: Continues to be short of breath. Continues to have desaturation episodes. Tested positive last night for COVID and has been moved to an isolation room OBJECTIVE: Vitals: Temp: [36.4 ??C (97.5 ??F)-36.9 ??C (98.4 ??F)] 36.9 ??C (98.4 ??F) Pulse: [81-104] 83 BP: (86-123)/(44-84) 108/71 Resp: [12-37] 17 SpO2: [81 %-98 %] 98 % FiO2 (%): [60 %-80 %] 60 % Cardiac Rhythm: Normal sinus rhythm (05/20 0400) Wt Readings from Last 3 Encounters: 05/20/21 79.5 kg (175 lb 4.3 oz) 08/27/13 114.3 kg (252 lb) 10/19/12 111.6 kg (246 lb) I/O last 2 completed shifts: In: 1090 [P.O.:840; I.V.:250] Out: 800 [Urine:800] Net: +200 90 cc last 24 hours, -02466 cc since admission Physical Exam Constitutional: General: He is not in acute distress. Cardiovascular: Rate and Rhythm: Normal rate and regular rhythm. Heart sounds: No murmur heard. Comments: Sternal incision is well healed Pulmonary: Breath sounds: Rhonchi present. No wheezing. Abdominal: Tenderness: There is no abdominal tenderness. Musculoskeletal: Right lower leg: No edema. Left lower leg: No edema. Neurological: General: No focal deficit present. Mental Status: He is alert and oriented to person, place, and time. Access: picc Recent Labs Lab Units 05/20/21 0328 05/19/21 0456 05/18/21 0204 WBC K/cumm 9.3 8.0 7.6 HEMOGLOBIN g/dL 10.6* 9.8* 11.2* HEMATOCRIT % 32.5* 29.1* 33.0* PLATELETS K/cumm 381 308 278 Recent Labs Lab Units 05/20/21 0328 05/20/21 0025 05/19/21 1645 SODIUM mmol/L 132* 131* 130* POTASSIUM PLASMA mmol/L 4.0 3.7 4.0 CHLORIDE mmol/L 94* 95* 91* CO2 mmol/L 21* 21* 21* BUN SERUM mg/dL 45* 47* 51* CREATININE mg/dL 1.14 1.05 1.44* CALCIUM mg/dL 8.8 8.4* 8.8 Recent Labs Lab Units 05/18/21195205/17/21 0220 PH ART 7.45 7.50* PCO2 ART mmHg 32* 27* PO2 ART mmHg 58* 72* BASE EXC ART mmol/L -2 -2 Drips: None Imaging: Today's CXR persistent fluffy infiltrates noted worse on the left.. CT of chest done yesterday without contrast reviewed. Has patchy ground-glass densities in the lower lobes worse on the left. This is consistent with viral pneumonitis Assessment and Plan: 60 y.o. male 6 Days Post-Op s/p urgent Coronary Artery Bypass Graft x4 16 days ago CVS: Hemodynamics are okay but requiring midodrine to support his blood pressure. I suspect he is volume depleted. Will hold all diuretics and give some albumin back to slowly expand his intravascular space Pulm: Requiring BiPAP to obtain good saturations. May benefit from voluntary prone positioning. Hischest CT shows severe emphysema with overlying COVID pneumonitis changes. Continue supportive care GI: Advance diet to regular Renal: Creatinine and BUN slowly coming down as we rehydrate him and hold diuretic ID: Patient has turned COVID positive during his hospitalization. Initial COVID test on admission was negative. I suspect this occurred last week as he did not manifest any respiratory issues until May 15. Patient on Remidisvir and Decadron. Will consult ID D/L/T: All lines and tubes are out except PICC which he needs for IV access Prophylaxis: On appropriate meds. May need higher dose Lovenox Dispo: Keep in ICU Rhina Granados MD Cardiothoracic Surgery [facility] F FORESTER * Lise Suggs, ESCROW CLERK - 05/20/2021 8:59 AM CST Urology Progress Note Procedure CYSTOSCOPY with clot evacuation and fulguration on 05/14/2021 Subjective Deepak Alvarado is a 60 y.o. male that we are seeing for gross hematuria. Nursing reports that he uses the urinal and has no complaints or problems with passing urine. Lab Results Component Value Date CREATININE 1.14 05/20/2021 and CBC: Lab Results Component Value Date WBC 9.3 05/20/2021 HGB 10.6 (L) 05/20/2021 Lab/Radiology/Diagnostic Review: Most Recent: Vitals: 05/20/21 0400 BP: 108/71 Pulse: 83 Resp: 17 Temp: 36.9 ??C (98.4 ??F) SpO2: Review of Systems: All other systems except the HPI are negative. Objective Physical exam: Constitutional: Appears well-developed and well-nourished. Head: Normocephalic and atraumatic. Eyes: Conjunctivae and EOM are normal. Pulmonary/Chest: No respiratory distress noted Musculoskeletal: Normal range of motion. Neurological: Alert and oriented to person, place, and time. Psychiatric: Behavior is normal. Extremities: warm and well perfused Assessment /Plan Principal Problem: ST elevation myocardial infarction (STEMI) (HCC) 60 y.o. male with gross hematuria with clot retention. History of bladder tumor. He is urinating without obstruction or hematuria. Advised to perform a bladder scan. Call if for urine volumes greaterthan 300 cc. His urine is clear and he is passing urine without obstruction. No urological interventions are planned. Urology to sign off Thank you for allowing Urology to be a part of the care of your patient. Please call if you have any questions. Lise Suggs NP Urology Division [facility] Office [phone] 05/20/2021 9:00 AM Cosigned by Braulio Ortega MD at 05/21/2021 9:37 AM STAFF FORESTER F FORESTER F FORESTER * Silviano Huddleston NP - 05/20/2021 8:00 AM CST Images from the original note were not included. Critical Care Medicine Daily Progress Team: Community AM Subjective Patient is a 60 y.o. y/o male admitted on 05/01/2021 5:20 PM with the following indication(s) for ICU care COVID PNA. Interval History: -CPR elevated at 68 -NPH increased with steroid administration, patient was given sugar and carbs which is why afternoon glucose was 343 -continue to wean optiflow -albumin given HPI (05/17) 60M smoker hx copd, obesity, pvd, htn, hld, dm2 & CAD s/p multiple LAD stents who p/w anterior STEMI after bladder procedure on 04/29. [facility] was [facility] where they found in-stent thrombosis and an angioplasty was performed but stent could not be placed. A balloon pump was placed and the patient was transferred to the CVU. CT-surgery was consulted for CABG. The patie nt underwent a 4 vessel cabg on 05/04 w/ Dr. Granados (MAE->LAD, Saph vein->diag & obtuse, Saph->PDA). He developed rebleeding from his bladder tumor and this was adressed by urology. Heself extubated the next day after his CABG. His osorio was removed yesterday and he is currently post op day 11 from the CABG. He has been getting diuresed on the floor but has unfortunately had increasing oxygen requirement for the last 24 hours despite diuresis. He is currently on a non-rebreatherand being transferred to the ICU.? Hospital Course 04/29 Cystoscopy [place] [facility] 04/30 STEMI, [facility] -> instent thrombosis, angioplasty, IABP, transfer to [facility] 05/04/21: Increased blood clot from osorio and obstruction with pain.?? 05/05/21: Brief asystole o/n w turning. Stable after. Self extubated in AM.?? 05/06/21: NAEON. Maintained on CPAP and optiflow.?? 05/07/21: NAEON. Up in chair at time of exam. TTF 05/10 near syncopal episode 05/14 cystoscopy with clot removal and fulguration of bleeding 05/17 readmit to ICU with pulmonary edema, lasix drip 05/18 Nasal cannula, on/off pressors, Negative VQ, ACTH Stim unremarkable 05/19 COVID positive, 15 L/NC, Remdesivir, dexamethasone Scheduled Medications: albumin, 25 g, intravenous, Once aspirin, 81 mg, oral, Daily atorvastatin, 80 mg, oral, Nightly dexAMETHasone, 6 mg, intravenous, Daily docusate sodium, 100 mg, oral, BID enoxaparin, 40 mg, subcutaneous, Daily-2100 insulin glargine, 8 Units, subcutaneous, QAM insulin lispro, 0-12 Units, subcutaneous, 5x daily (with meals, nightly, & 0200) [START ON 05/21/2021] insulin NPH, 8 Units, subcutaneous, Daily ipratropium-albuteroL, 3 mL, nebulization, Q4H While awake (RT) midodrine, 15 mg, oral, Q6H pantoprazole DR, 40 mg, oral, Daily QUEtiapine, 25 mg, oral, Nightly [START ON 05/21/2021] remdesivir, 100 mg, intravenous, Q24H sodium chloride 0.9%, 0.5-20 mL, intra-catheter, Q8H LEAH tamsulosin, 0.4 mg, oral, Daily with dinner Continuous Medications: PRN Medications: ??? acetaminophen ? ? al & mag hydroxide atkkvkauklr-zlzypbdlblemnrq-ricqoeijf-nystatin ??? albuterol ??? dextrose OR dextrose ??? glucagon ??? guaiFENesin ??? ondansetron ??? polyethylene glycol Objective Vitals: Most Recent: Vitals: 05/20/21 1600 BP: 100/68 Pulse: 81 Resp: 14 Temp: SpO2: 24hr Min/Max: Temp Min: 36.4 ??C (97.5 ??F) Max: 36.9 ??C (98.4 ??F) Pulse Min: 81 Max: 97 BP Min: 86/72 Max: 135/81 Resp Min: 12 Max: 37 SpO2 Min: 81 % Max: 98 % LDA: PICC Double Lumen 05/18/21 Non-tunneled Power #1 Red, #2 Purple, Right Upper arm;Brachial (Active) Placement Date/Time: 05/18/21 1200 Catheter Time Out Checklist Completed: Yes Hand Hygiene Performed: Yes Site Prep: Alcohol;Betadine;Chlorhexidine Site Prep Agent has Completely Dried Before Insertion: Yes All 5 Sterile Barriers or Appropriate ... Number of days: 2 Vent settings: FiO2 (%): [50 %-80 %] 50 % Hemodynamic parameters for last 24 hours: I/O: Date 05/19/21699 - 05/20/21 0659 05/20/21699 - 05/21/21 0659 Shift 24 Hour Total 9605-9252 8601-8103 24 Hour Total INTAKE P.O. 600 240 840 673 673 I.V.(mL/kg) 250(3.1) 250(3.1) Shift Total(mL/kg) 600(7.6) 490(6.2) 1090(13.7) 673(8.5) 673(8.5) OUTPUT Urine(mL/kg/hr) 800(0.8) 800(0.4) 250 250 Shift Total(mL/kg) 800(10.1) 800(10.1) 250(3.1) 250(3.1) NET 600 -310 290 423 423 Weight (kg) 79 79.5 79.5 79.5 79.5 79.5 Physical Exam: Neuro- A&Ox3, FC, PERRL CV- NSR, normotensive Resp- Diminished to auscultation, on optiflow GI- soft, n/d, n/t Msk- warm, palpable pulses Drain- none Wound- sternotomy, R leg incision Lab/Radiology/Diagnostic Review: Laboratory review: Lab results in the last 24 hours: Recent Results (from the past 24 hour(s)) Basic metabolic panel Collection Time: 05/19/21 4:45 PM Result Value Ref Range Sodium 130 (L) 135 - 145 mmol/L Potassium, pl 4.0 3.3 - 4.9 mmol/L Chloride 91 (L) 97 - 110 mmol/L CO2 21 (L) 22 - 32 mmol/L Anion gap 18 (H) 2 - 15 mmol/L BUN 51 (H) 8 - 25 mg/dL Creatinine 1.44 (H) 0.80 - 1.30 mg/dL Glucose 213 (H) 70 - 199 mg/dL Calcium 8.8 8.5 - 10.3 mg/dL eGFR Collection Time: 05/19/21 4:45 PM Result Value Ref Range eGFR 53 mL/min/1.73 m2 POCT glucose Collection Time: 05/19/21 8:37 PM Result Value Ref Range Glucose, POC 165 70 - 199 mg/dL Influenza A/B, RSV, and COVID-19 PCR Nasopharyngeal Collection Time: 05/19/21 8:54 PM Specimen: Nasopharyngeal Result Value Ref Range COVID-19 RNA Positive (A) Negative Influenza A RNA Negative Negative Influenza B RNA Negative Negative RSV RNA Negative Negative First COVID-19 test? No Employeed in healthcare? No Group care resident? No Hospitalized? Yes Is patient in ICU? Yes Symptomatic as defined by CDC? Yes Basic metabolic panel Collection Time: 05/20/21 12:25 AM Result Value Ref Range Sodium 131 (L) 135 - 145 mmol/L Potassium, pl 3.7 3.3 - 4.9 mmol/L Chloride 95 (L) 97 - 110 mmol/L CO2 21 (L) 22 - 32 mmol/L Anion gap 15 2 - 15 mmol/L BUN 47 (H) 8 - 25 mg/dL Creatinine 1.05 0.80 - 1.30 mg/dL Glucose 173 70 - 199 mg/dL Calcium 8.4 (L) 8.5 - 10.3 mg/dL eGFR Collection Time: 05/20/21 12:25 AM Result Value Ref Range eGFR 77 mL/min/1.73 m2 POCT glucose Collection Time: 05/20/21 1:28 AM Result Value Ref Range Glucose, POC 155 70 - 199 mg/dL Phosphorus Collection Time: 05/20/21 3:28 AM Result Value Ref Range Phosphorus, pl 3.2 2.3 - 4.5 mg/dL Magnesium Collection Time: 05/20/21 3:28 AM Result Value Ref Range Magnesium 2.4 1.4 - 2.5 mg/dL CBC without differential Collection Time: 05/20/21 3:28 AM Result Value Ref Range WBC 9.3 3.8 - 9.9 K/cumm Hgb 10.6 (L) 13.0 - 17.5 g/dL Hct 32.5 (L) 38.9 - 50.3 % Plt 381 150 - 400 K/cumm MPV 11.7 9.1 - 12.3 fL RBC 3.59 (L) 4.30 - 5.80 M/cumm MCV 90.5 81.3 - 96.4 fL MCH 29.5 27.1 - 33.3 pg MCHC 32.6 32.3 - 35.7 g/dL RDW CV 13.2 11.1 - 14.9 % RDW SD 43.9 35.7 - 48.1 fL NRBC abs 0.00 0.00 - 0.01 K/cumm Basic metabolic panel Collection Time: 05/20/21 3:28 AM Result Value Ref Range Sodium 132 (L) 135 - 145 mmol/L Potassium, pl 4.0 3.3 - 4.9 mmol/L Chloride 94 (L) 97 - 110 mmol/L CO2 21 (L) 22 - 32 mmol/L Anion gap 17 (H) 2 - 15 mmol/L BUN 45 (H) 8 - 25 mg/dL Creatinine 1.14 0.80 - 1.30 mg/dL Glucose 186 70 - 199 mg/dL Calcium 8.8 8.5 - 10.3 mg/dL eGFR Collection Time: 05/20/21 3:28 AM Result Value Ref Range eGFR 70 mL/min/1.73 m2 CRP (acute phase) Collection Time: 05/20/21 3:28 AM Result Value Ref Range CRP 68.7 (H) <=10.0 mg/L POCT glucose Collection Time: 05/20/21 9:02 AM Result Value Ref Range Glucose, POC 238 (H) 70 - 199 mg/dL POCT glucose Collection Time: 05/20/21 12:50 PM Result Value Ref Range Glucose, POC 343 (H) 70 - 199 mg/dL CT Chest WO Contrast Result Date: 05/19/2021 1. STATUS POST MEDIAN STERNOTOMY. 2. RIGHT-SIDED PICC CATHETER IN PLACE. 3. CORONARY ARTERY DISEASE. 4. MODERATE EMPHYSEMATOUS CHANGES IN THE LUNGS. 5. PATCHY ALVEOLAR INFILTRATE IN BOTH LUNGS. THIS CAN BE SEEN WITH A VIRAL-TYPE PNEUMONITIS. Electronically signed by: Humphrey Mojica M.D. XR Chest 1 View Result Date: 05/19/2021 Persistent ill-defined patchy left perihilar upper and lower lobe alveolar infiltrate and mild on the right. Electronically signed by: Joie Bernardo M.D. Plan: Neuro: #Acute pain - Tylenol ?? #Insomnia - Seroquel, sleep improving ?? CV: #Severe multivessel CAD s/p CABG #STEMI #HFrEF, chronic - S/p CABG by MD Granados - CCL (04/30) -> in-stent restenosis, unsuccessful angioplasty, IABP placed - ASA/Atorvastatin, holding plavix - Unable to tolerate ACEi or BB at this time - Cardiology following - CTS following - TTE (05/17) -> EF 35-40% ?? Pulmonary: #Acute hypoxic respiratory failure 2/2 #COVID 19 pneumonia - Increasing O2 overnight -> up to 15L/NC, NPPV as needed - V/Q (05/18) -> low probability for PE - CT Chest (05/19) -> c/f viral pneumonia - COVID 19 positive (05/19) - Dexamethasone - Remdesivir - Aggressive pulmonary hygiene, IS, OOBTC in am - Maintain sats> 92% -Was on bi-pap overnight 80%, now weaned down to 50L 50% optiflow - Sniff test pending ?? GI: Diet: Heart healthy PUD PPx: Pantoprazole Bowel regimen: Docusate ?? Endo: #Hyperglycemia, likely 2/2 stress response - Glycemic control - Lantus/SSI/NPH with steroids, increased NPH with steroids - Frequent accuchecks - Endocrine following ?? Renal: #ISRRAEL - BUN/Cr 45/1.14 - FBG euvolemic, heavily diuresis previous days - trend renal function, avoid nephrotoxins, renal dose medications - optimize electrolytes with caution to renal function ?-goal K ~4, Mg >??2.2, phos >??3, iCAL >??4.5 ?-provide supplement as needed ?-AM BMP and electrolytes check ?? #Hematuria 2/2 #Bladder tumor - (05/14) Cystoscopy for clot evacuation and cessation of bleeding sites - Osorio removed that night - Per urology, okay to hold on osorio if patient continue to void - Bladder scan - Urology following - Flomax ?? #High anion gap metabolic acidosis - Likely related to hypoxemia - Lactate negative - BHO negative - ABG WNL - Repeat BMP in am ?? Heme: #ABLA 2/2 surgery - No active signs of bleeding - Transfuse for hgb < 8 - CBC in am ?? DVT PPX: SCD's/Lovenox ?? ID: #COVID 19 pneumonia - WBC: 9.3 - Tmax: 36.9 -CRP 68 - Remdesivir - Dexamethasone - CBC in am - Trend WBC and fever curve ICU standards of care: Physical therapy/Activity: OOBTC Access: PICC Goals of care: Full code Community AM Assessment and plan has been reviewed with attending, Dr. German Huddleston NP Cosigned by Alexandru Porter MD at 05/20/2021 6:02 PM STAFF FORESTER F FORESTER F FORESTER * Yves Weinberg MD - 05/19/2021 11:21 PM CST Nephrology Progress Note [facility] SUBJECTIVE 05/19 Cr 1.41 Na 130. Started on Corlanor. Appears stable. BP remains very soft. UO not accurate. 05/17 Transferred to ICU for hi O2 requirements. Has left nostril epistaxis. On low dose pressors and lasix and insulin drip. Na 128, should improve with loop diuresis. Cr 1.2. 05/16 Creatinine stable and sodium trending up.On IV lasix,lytes wnl.Osorio out,having some problems with retention- nurses in contact with urology,doing bladder scans. 05/15/21 Doing fair. Osorio out. Has not voided yet. Na 131 with loop diuresis and improved. All labs and data reviewed. Excellent UO. Doing fair. Some flank pain and mild dyspnea. Na 127 and a little lower. BP better. Agreeable to cysto, but urology planning on conservative tx. Will start loop diuresis. OBJECTIVE Vitals: Vitals: 05/19/21 2215 05/19/21 2230 05/19/21 2245 05/19/21 2300 BP: 120/51 96/51 (!) 88/44 115/61 BP Location: Patient Position: Pulse: 83 83 84 84 Resp: 14 (!) 33 30 27 Temp: TempSrc: SpO2: (!) 86% (!) 84% (!) 89% Weight: Height: Intake/Output Summary (Last 24 hours) at 05/19/2021 2321 Last data filed at 05/19/2021 2245 Gross per 24 hour Intake 1095 ml Output 300 ml Net 795 ml REVIEW OF SYSTEMS Review of Systems Epistaxis, dyspnea. Constitutional: Negative. HENT: Negative. Eyes: Negative. Respiratory: Negative. Cardiovascular: Negative. Gastrointestinal: Negative. Genitourinary: Negative. Musculoskeletal: Negative. Skin: Negative. Allergic/Immunologic: Negative. Hematological: Negative. All other systems reviewed and are negative. PHYSICAL EXAM Physical Exam Constitutional: Appears well-developed. O2 on HENT: wnl Head: Normocephalic. Eyes: Pupils are equal, round, and reactive to light. Neck: Normal range of motion. Neck supple. Cardiovascular: Normal rate. Pulmonary/Chest: Effort normal and breath sounds normal. Abdominal: Soft. NT,active BS Musculoskeletal: Normal range of motion. Neurological: Alert, oriented. Skin: Skin is warm. Nursing note and vitals reviewed. MEDICATIONS Current Facility-Administered Medications: ??? acetaminophen (TYLENOL) tablet 650 mg, 650 mg, oral, Q6H PRN, Eleonora Duarte NP, 650 mg at 05/19/21 1624 ? ? al & mag hydroxide iyhjspuijnc-ylhfeezowtqlxym-ksreauzxh-nystatin (MAGIC MOUTHWASH) suspension 1-1-1-1, 20 mL, swish & spit, Q4H PRN, Elena Kelly NP ??? albuterol 2.5 mg /3 mL (0.083 %) nebulizer solution 2.5 mg, 2.5 mg, nebulization, Q4H PRN (RT),Ralf Tomlinson MD, 2.5 mg at 05/17/21 0224 ??? aspirin enteric coated tablet 81 mg, 81 mg, oral, Daily, Varsha Crowder NP, 81 mg at 05/19/21 0809 ??? atorvastatin (LIPITOR) tablet 80 mg, 80 mg, oral, Nightly, Rhina Granados MD, 80 mg at 05/19/212031 ??? [START ON 05/20/2021] dexAMETHasone (DECADRON) 4 mg/mL injection 6 mg, 6 mg, intravenous, Daily,Elena Kelly NP ??? dextrose oral liquid liquid 15 g, 15 g, oral, Q15 Min PRN OR dextrose (D10W) 10% bolus 250 mL, 250 mL, intravenous, Q15 Min PRN, Anibal Lara MD ??? docusate sodium (COLACE) capsule 100 mg, 100 mg, oral, BID, 100 mg at 05/19/212032 OR [DISCONTINUED] docusate (COLACE) 10 mg/mL oral liquid 100 mg, 100 mg, feeding tube, BID, Rhina Granados MD, 100 mg at 05/05/21 0842 ??? enoxaparin (LOVENOX) syringe 40 mg, 40 mg, subcutaneous, Daily-2100, Rhina Granados MD, 40 mg at 05/19/212032 ??? glucagon injection 1 mg, 1 mg, intramuscular, Q30 Min PRN, Anibal Lara MD ??? guaiFENesin (ROBITUSSIN) 20 mg/mL oral liquid 200 mg, 200 mg, oral, QID PRN, Caleb Toth PA, 200 mg at 05/19/21 1746 ??? insulin glargine (LANTUS, SEMGLEE) 100 unit/mL injection 8 Units, 8 Units, subcutaneous, QAM, Abelino Leblanc MD, 8 Units at 05/19/21 0812 ??? insulin lispro (HumaLOG, ADMELOG) 100 unit/mL injection 0-12 Units, 0-12 Units, subcutaneous, 5x daily (with meals, nightly, & 0200), Abelino Leblanc MD, 0 Units at 05/19/212102 ??? [START ON 05/20/2021] insulin NPH (HumuLIN N, NovoLIN N) 100 unit/mL injection 5 Units, 5 Units,subcutaneous, Daily, Elena Kelly NP ??? ipratropium-albuteroL (DUO-NEB) 0.5-2.5 mg/3 mL nebulizer solution 3 mL, 3 mL, nebulization, Q4H While awake (RT), Ralf Tomlinson MD, 3 mL at 05/19/212013 ??? [Held by Provider] metoprolol tartrate (LOPRESSOR) immediate release tablet 12.5 mg, 12.5 mg, oral, BID, Eleonora Duarte NP, 12.5 mg at 05/16/21 0909 ??? midodrine (PROAMATINE) tablet 15 mg, 15 mg, oral, Q6H, Rhina Granados MD, 15 mg at ??? ondansetron (ZOFRAN) injection 4 mg, 4 mg, intravenous, Q6H PRN, Rhina Granados MD ??? pantoprazole DR (PROTONIX) extended release tablet 40 mg, 40 mg, oral, Daily, Rhina Granados MD, 40 mg at 05/19/21 0810 ??? polyethylene glycol (MIRALAX) packet 17 g, 17 g, oral, Daily PRN, Rhina Granados MD ??? [START ON 05/20/2021] potassium chloride ER (KLOR-CON) extended release tablet 40 mEq, 40 mEq, oral, Daily, Rhina Granados MD ??? QUEtiapine (SEROquel) tablet 25 mg, 25 mg, oral, Nightly, Rhina Granados MD, 25 mg at 05/19/212031 ??? [START ON 05/20/2021] remdesivir (VEKLURY) 100 mg in sodium chloride 0.9% 250 mL IVPB, 100 mg, intravenous, Q24H, Elena Kelly NP ??? [START ON 05/20/2021] remdesivir (VEKLURY) 200 mg in sodium chloride 0.9% 250 mL IVPB, 200 mg, intravenous, Q24H, Elena Kelly, EFREN ??? sodium chloride 0.9% flush 0.5-20 mL, 0.5-20 mL, intra-catheter, Q8H LEAH, Rhina Granados., MD, 10 mL at 05/19/21 1400 ??? tamsulosin (FLOMAX) extended release capsule 0.4 mg, 0.4 mg, oral, Daily with dinner, Elena Kelly NP, 0.4 mg at 05/19/21 1638 Lab/Radiology/Diagnostic Review: Recent Results (from the past 24 hour(s)) Potassium, whole blood Collection Time: 05/19/21 1:28 AM Result Value Ref Range Potassium, bld 3.8 3.3 - 4.9 mmol/L POCT glucose Collection Time: 05/19/21 1:43 AM Result Value Ref Range Glucose, POC 166 70 - 199 mg/dL Basic metabolic panel Collection Time: 05/19/21 2:05 AM Result Value Ref Range Sodium 131 (L) 135 - 145 mmol/L Potassium, pl 3.9 3.3 - 4.9 mmol/L Chloride 95 (L) 97 - 110 mmol/L CO2 21 (L) 22 - 32 mmol/L Anion gap 15 2 - 15 mmol/L BUN 49 (H) 8 - 25 mg/dL Creatinine 1.41 (H) 0.80 - 1.30 mg/dL Glucose 180 70 - 199 mg/dL Calcium 8.3 (L) 8.5 - 10.3 mg/dL Magnesium Collection Time: 05/19/21 2:05 AM Result Value Ref Range Magnesium 2.4 1.4 - 2.5 mg/dL eGFR Collection Time: 05/19/21 2:05 AM Result Value Ref Range eGFR 54 mL/min/1.73 m2 Phosphorus Collection Time: 05/19/21 4:44 AM Result Value Ref Range Phosphorus, pl 3.6 2.3 - 4.5 mg/dL Magnesium Collection Time: 05/19/21 4:44 AM Result Value Ref Range Magnesium 2.4 1.4 - 2.5 mg/dL Basic metabolic panel Collection Time: 05/19/21 4:44 AM Result Value Ref Range Sodium 132 (L) 135 - 145 mmol/L Potassium, pl 3.7 3.3 - 4.9 mmol/L Chloride 95 (L) 97 - 110 mmol/L CO2 21 (L) 22 - 32 mmol/L Anion gap 16 (H) 2 - 15 mmol/L BUN 47 (H) 8 - 25 mg/dL Creatinine 1.21 0.80 - 1.30 mg/dL Glucose 156 70 - 199 mg/dL Calcium 8.4 (L) 8.5 - 10.3 mg/dL eGFR Collection Time: 05/19/21 4:44 AM Result Value Ref Range eGFR 65 mL/min/1.73 m2 CBC without differential Collection Time: 05/19/21 4:56 AM Result Value Ref Range WBC 8.0 3.8 - 9.9 K/cumm Hgb 9.8 (L) 13.0 - 17.5 g/dL Hct 29.1 (L) 38.9 - 50.3 % Plt 308 150 - 400 K/cumm MPV 11.7 9.1 - 12.3 fL RBC 3.25 (L) 4.30 - 5.80 M/cumm MCV 89.5 81.3 - 96.4 fL MCH 30.2 27.1 - 33.3 pg MCHC 33.7 32.3 - 35.7 g/dL RDW CV 13.4 11.1 - 14.9 % RDW SD 44.2 35.7 - 48.1 fL NRBC abs 0.00 0.00 - 0.01 K/cumm POCT glucose Collection Time: 05/19/21 7:18 AM Result Value Ref Range Glucose, POC 174 70 - 199 mg/dL POCT glucose Collection Time: 05/19/21 1:00 PM Result Value Ref Range Glucose, POC 239 (H) 70 - 199 mg/dL POCT glucose Collection Time: 05/19/21 4:31 PM Result Value Ref Range Glucose, POC 203 (H) 70 - 199 mg/dL Basic metabolic panel Collection Time: 05/19/21 4:45 PM Result Value Ref Range Sodium 130 (L) 135 - 145 mmol/L Potassium, pl 4.0 3.3 - 4.9 mmol/L Chloride 91 (L) 97 - 110 mmol/L CO2 21 (L) 22 - 32 mmol/L Anion gap 18 (H) 2 - 15 mmol/L BUN 51 (H) 8 - 25 mg/dL Creatinine 1.44 (H) 0.80 - 1.30 mg/dL Glucose 213 (H) 70 - 199 mg/dL Calcium 8.8 8.5 - 10.3 mg/dL eGFR Collection Time: 05/19/21 4:45 PM Result Value Ref Range eGFR 53 mL/min/1.73 m2 POCT glucose Collection Time: 05/19/21 8:37 PM Result Value Ref Range Glucose, POC 165 70 - 199 mg/dL Influenza A/B, RSV, and COVID-19 PCR Nasopharyngeal Collection Time: 05/19/21 8:54 PM Specimen: Nasopharyngeal Result Value Ref Range COVID-19 RNA Positive (A) Negative Influenza A RNA Negative Negative Influenza B RNA Negative Negative RSV RNA Negative Negative First COVID-19 test? No Employeed in healthcare? No Group care resident? No Hospitalized? Yes Is patient in ICU? Yes Symptomatic as defined by CDC? Yes XR Chest 1 View - Portable - in AM Result Date: 05/11/2021 Narrative: EXAMINATION: XR CHEST 1 VIEW HISTORY: The patient is a 60-year-old male who has had cardiac surgery. Comparison made with the previous study dated 05/10/2021. TECHNIQUE: AP portable view of the chest. FINDINGS: Lungs clear. Heart not enlarged. Aortic atherosclerosis. No failure. The right IJ [place] catheter has been retracted with its tip in the distal superior vena cava. Impression: IMPRESSION: No failure. Electronically signed by: Elvira Blackman M.D. XR Chest 1 View - Portable - in AM Result Date: 05/10/2021 Narrative: EXAMINATION: XR CHEST 1 VIEW DATE: 05/10/2021 2:40 AM COMPARISON: 05/09/2021 HISTORY: 60-year-old man cardiac surgery follow-up FINDINGS:Compared with study the previous day, significant improvement. There is cardiomegaly with postsurgical changes with continued and decreasing failure. Bibasilar atelectasis with left pleural fluid decreasing. No pneumothorax. [place] catheter remainsin place Impression: Decreasing failure, atelectasis and left effusion. Electronically signed by: Deandre Lomeli M.D. XR Chest 1 View - Portable - in AM Result Date: 05/09/2021 Narrative: EXAMINATION: XR CHEST 1 VIEW DATE: 05/09/2021 4:10 AM HISTORY: 60-year-old man cardiac surgery follow-up FINDINGS:Compared with study the previous day, significant improvement. There is cardiomegaly with postsurgical changes with continued but decreasing failure. Bibasilar atelectasis with left pleural fluid decreasing. No pneumothorax. [place] catheter remains in place Impression: Decreasing failure, atelectasis and left effusion. Electronically signed by: Deandre Lomeli M.D. XR Chest 1 View - Portable - in AM Result Date: 05/08/2021 Narrative: EXAMINATION: XR CHEST 1 VIEW DATE: 05/08/2021 4:15 AM HISTORY: 60-year-old man cardiac surgery follow-up FINDINGS:Compared with study the previous day, significant improvement. There is cardiomegaly with postsurgical changes with continued but decreasing failure. Bibasilar atelectasis with left pleural fluid. No pneumothorax. [place] catheter remains in place Impression: Decreasing failure. No pneumothorax. Electronically signed by: Deacon Cummings M.D. XR Chest 1 View - Portable - in AM Result Date: 05/07/2021 Narrative: EXAMINATION: XR CHEST 1 VIEW DATE: 05/07/2021 3:55 AM HISTORY: 60-year-old man follow-upcardiac surgery FINDINGS:Compared with study of the previous day, postsurgical changes in the heartand mediastinum with cardiomegaly are stable. [place] catheter remains in place. Left thoracostomy tube remains in place. No pneumothorax. Pulmonary vascular congestion with interstitial lung disease remain prominent. Impression: Persistent prominent interstitial lung disease with failure. Electronically signed by: Deacon Cummings M.D. XR Chest 1 View - Portable - in AM Result Date: 05/06/2021 Narrative: EXAMINATION: XR CHEST 1 VIEW DATE: 05/06/2021 4:05 AM INDICATION: Cardiac surgery. COMPARISON: 05/05/2021. FINDINGS: No pneumothorax or pleural effusion. Similar-appearing pulmonary vascular congestion and interstitial opacities most notable in the bilateral upper lobes consistent with pulmonary edema. Pulmonary catheter catheter, left thoracostomy tube, and mediastinal drain are appropriately position. Intra-aortic balloon pump is appropriately positioned. Interval removal of endotracheal tube. Impression: 1. Interval removal of endotracheal tube. Remaining tubes and lines are appropriately positioned. 2. Similar-appearing cardiomegaly, pulmonary vascular congestion, and prominent bilateralinterstitial markings suggestive of interstitial pulmonary edema. Electronically signed by: Richard Zhao II, D.O. XR Chest 1 View - Portable - in AM Result Date: 05/05/2021 Narrative: EXAMINATION: XR CHEST 1 VIEW DATE: 05/05/2021 4:15 AM HISTORY: 60-year-old man cardiac surgery follow-up FINDINGS:Compared with the study of the prior day, tubes and catheters remain satisfactorily positioned. Worsening pulmonary vascular congestive changes are seen. Cardiomegaly with postsurgical changes stable. No pneumothorax. Impression: Increasing failure. Electronically signed by: Deacon Cummings M.D. XR Chest 1 Vw Portable Result Date: 05/05/2021 Narrative: EXAMINATION: XR CHEST 1 VIEW DATE: 05/04/2021 8:40 PM HISTORY: 60-year-old man coronary artery bypass follow-up FINDINGS:Compared with the study of earlier the same day, postsurgical changes now evident within the heart and mediastinum with cardiomegaly. Interval placement of endotracheal tube, nasogastric tube, [place] catheter, left thoracostomy tube and mediastinal drain all in satisfactory position. No pneumothorax. Interstitial lung disease with mild pulmonary vascular congestive changes. Aortic balloon pump is no longer seen. Impression: Tube placements with postsurgical changes with cardiomegaly with interstitial lung disease and mild failure with no pneumothorax. Electronically signed by: Deacon Cummings M.D. XR Chest 1 Vw Portable Result Date: 05/04/2021 Narrative: EXAMINATION: XR CHEST 1 VIEW DATE: 05/04/2021 9:05 AM HISTORY: Coronary artery disease FINDINGS:Comparison is made with study of 2 days earlier. Cardiomegaly, COPD with interstitial lung disease stable. Mild failure. Aortic balloon pump stable in position at the proximal descending aorta. No pneumothorax. No new infiltrates. Impression: Stable appearance. COPD cardiomegaly, with mild failure suspected. Electronically signed by: Deacon Cummings M.D. XR Chest 1 Vw Portable Result Date: 05/02/2021 Narrative: EXAMINATION: XR CHEST 1 VIEW DATE: 05/02/2021 5:15 AM INDICATION: Intra-aortic balloon pump. COMPARISON: 05/01/2021. FINDINGS: Appropriately positioned intra-aortic balloon pump appears unchanged. No pneumothorax or pleural effusion. Mixed reticular and alveolar opacities demonstrated inall lung lobes appear most significant in the upper lobes and perihilar regions, unchanged. Impression: 1. Appropriately positioned intra-aortic balloon pump. 2. Similar mixed reticular and alveolar opacities most notable in the bilateral upper lobes and perihilar region. Electronically signed by: Richard Lopez II, D.O. XR Chest 1 Vw Portable Result Date: 05/02/2021 Narrative: EXAMINATION: XR CHEST 1 VIEW DATE: 05/01/2021 8:15 PM INDICATION: Hypoxia. COMPARISON: None. FINDINGS: No pneumothorax. No pleural effusion. Mixed reticular and alveolar opacities are demonstrated in all lung lobes but demonstrate an upper lobe and perihilar predominance. Findings may represent pulmonary edema on background of centrilobular emphysematous changes. Underlying infectious process not entirely excludable. Cardiac mediastinal silhouette is stable in appearance. No acute osseous abnormality. Impression: Mixed reticular and alveolar opacities are demonstrated in all lung lobes but demonstrate an upper lobe and perihilar predominance. Findings may represent pulmonary edema on background ofcentrilobular emphysematous changes. Electronically signed by: Richard Lopez II, D.O. Transthoracic Echo (TTE) Limited Result Date: 05/07/2021 Narrative: [place] [address] Limited Echocardiogram Report Patient Name: DEEPAK ALVARADO : 1960 StudyDate: 05/07/2021 12:16:52 PM Gender: M Tech: Location: [id number] Ref.Provider: RHINA GRANADOS Height(Cm): 175 BSA: 2.1 Weight(Kg): 91 Heart Rate: 82 BP: 127/44 Quality: Good Order Provider: Dr. Sutton Procedures: Echocardiographic Report: Limited transthoracic echocardiogram with 2D and M-Mode. Measurements: 2D/M Mode Measurement Value Normal Range LVIDd 2D 3.43 [ 4.20 - 5.90 ] cm LVIDs 2D 2.59 [ 2.30 - 3.90 ] cm LVPWd 2D 1.01 [ 0.60 - 1.00 ] cm IVSd 2D 0.71 [ 0.60 -0.90 ] cm Findings: Left Ventricle: Reduced left ventricular cavity size. Mild global left ventricular systolic dysfunction. Ejection fraction is measured at 42 %. These segments of the LV are hypokinetic: apical anterior segment. Pericardium: Trivial pericardial effusion. No echocardiographic evidence to suggest pericardial tamponade. Conclusions: Reduced left ventricular cavity size. Mild global left ventricular systolic dysfunction. Ejection fraction is measured at 42 %. These segments of the LV are hypokinetic: apical anterior segment. Trivial pericardial effusion. No echocardiographic evidence to suggest pericardial tamponade. Electronically Signed By: Gianni Francois MD, [facility] 2021-05-07 12:54:09 STAFF FORESTER Transthoracic Echo Complete W Doppler/CF Result Date: 05/02/2021 Narrative: [place] [address] Echocardiogram Report Patient Name: DEEPAK ALVARADO W : 1960 Study Date: 05/02/2021 8:50:02 AM Gender: M Tech: Location: [place] [id number] Ref Provider: NALINI CLAYTONHeight(Cm): 175 BSA: 2.11 Weight(Kg): 92 Heart Rate: 89 BP: 102/52 Quality: Good Order Provider: NALINI CLAYTON PROCEDURES: Echocardiographic Report: Transthoracic echocardiogram with complete 2D, M-Mode, and color Doppler examination. INDICATIONS: Free Text. Measurements: 2D/M Mode DopplerMeasurement Value Normal Range Measurement Value Normal Range EF Teich 2D 30.0 [ 55.0 - 70.0 ] percent CHRISTINA Vmax 2.04 [ 2.00 - 4.00 ] cm2 EF Mod 4C 42.2 [ 55.0 - 70.0 ] percent AV Mean PG 5 [ 2 - 4 ] mmHg LVIDd 2D 4.54 [ 4.20 - 5.90 ] cm AV Peak Ramesh 1.54 [ 1.00 - 1.70 ] m/s LVIDs 2D 3.91 [ 2.30 - 3.90 ] cm AV VTI 26.93 cm LVPWd 2D 0.92 [ 0.60 - 1.00 ] cm LVOT Diam 2.20 [ 1.70 - 2.10 ] cm IVSd 2D 0.76 [ 0.60 - 0.90 ] cm LVOT Peak Ramesh 0.83 [ 0.70 - 1.10 ] m/s LA Dimension MM 5.08 [ 3.00 - 4.00 ] cm LVOT VTI 13.82 [ 20.00 - 30.00 ] cm AoR Diam MM 4.12 [ 2.60 - 3.70 ] cm MV E Peak Ramesh 0.85 [ 0.60- 1.30 ] m/s LA Volume Index 20.83 [ 16.00 - 28.00 ] cc/m2 MV A Peak Ramesh 1.14 [ 1.00 - 1.20 ] m/s ACS MM 1.91 [ 1.50 - 2.60 ] cm MV Mean PG 1 [ <= 5 ] mmHg MV PHT 43 [ 20 - 100 ] msec MVA 2.20 MV Decel Time 137 [ 104 - 258 ] msec PV Peak Ramesh 1.10 [ 0.40 - 0.80 ] m/s TR Peak Ramesh 1.32 [ 1.00 - 2.80 ] m/s TR Peak PG 7 mmHg RVSP 16.93 [ 10.00 - 36.00 ] mmHg E' 0.06 E/E' 14.00 Measurement Value Normal Range Measurement Value Normal Range 2D/M Mode Doppler - FINDINGS: Atrial Septum: Normal atrial septum. Left Ventricle: Normal left ventricular size. Left ventricle not well visualized. There is severe hypokinesis of the mid anteroseptal, anterior, and apical [place]. Normal left ventricular wall thickness. Impaired diastolic relaxation Grade I. Ejection fraction is visually estimated at 40 %. Left Atrium: The left atrium is normal in size. Right Ventricle: Normal right ventricular size. Normal right ventricular systolic function. Right Atrium: The right atrium is normal in size. Aortic Valve: Normal structure of the aortic valve. No evidence of hemodynamically significant aortic stenosis by Doppler. No aortic regurgitation. Mitral Valve: Normal structure of the mitral valve. Trivialregurgitation of the mitral valve. Pulmonic Valve: Pulmonic valve not well visualized. Trivial regur gitation in the pulmonic valve. Tricuspid Valve: Normal structure of the tricuspid valve. Trivial regurgitation in the tricuspid valve. Pericardium: Normal pericardium with no significant pericardialeffusion. Aorta: Normal aortic root. IVC: Normal size and normal respiratory collapse consistent with normal right atrial pressure (<5 mmHg). CONCLUSIONS: Technically difficult study with limited views. Normal left ventricular size. Left ventricle not well visualized. There is severe hypokinesisof the mid anteroseptal, anterior, and apical [place]. Normal left ventricular wall thickness. Impaired diastolic relaxation Grade I. Ejection fraction is visually estimated at 40 %. Normal right ventricular size. Normal right ventricular systolic function. Normal structure of the mitral valve. Trivial regurgitation of the mitral valve. Normal structure of the tricuspid valve. Trivial regurgitationin the tricuspid valve. Electronically Signed By: Rylee Brito, DO, FACC, FASMisha, FASNC 2021-05-02 14:07:25 STAFF FORESTER CC: CC: CC: ASSESSMENT/PLAN Hyponatremia from SIADH and possibly from zaroxylyn use. Work up for hyponatremia ongoing. PO FR. DC Zaroxylyn. No normotonic fluids yet. Urine lytes and osm. If in clinical fluid overload, can use tolvaptan. Renal fn is mildly worse but acceptable. Na better with loop diuresis, will continue. ?? Recent bladder tumor removal with hematuria. ?? -??Urology is following.H/H stable -Cysto vs conservative tx. -Voiding trial, hematuria has stopped. -Epistaxis Use nasal pillows. -CHF with decompensation Continue diuresis. RHC not done. Agree with Chandu. ?? Hypokalemia from diuresis. Replace PRN. ?? 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 ?? Syncopal episode -(+) orthostasis -receiving albumin -IV lasix was discontinued. ??There is a 1x order for zaroxolyn 10mg this am- recommend holding fornow. ??D/w RN ?? Coronary artery disease -s/p CABG post STEMI -??underwent four-vessel bypass ??MAE to the LAD, sequential saphenous vein graft to diagonal and obtuse marginal and a vein graft to the PDA. -s/p??low dose dobutamine -paced rhythm -??IV??diuretics??discontinued d/t syncopal episode today (see above) ?? Moderate LV dysfunction -s/p IV??lasix??and??low dose??dobutamine -Beta blockers, ??[place] once off dobutamine-would hold off adding given syncopal episode this am -repeat ECHO 05/07 EF 42% (see above) ?Nonsustained ventricular tachycardia -no recurrence of VT -K 3.7, Mg??2.0. ??Supplement to keep K >/= 4.0, Mg >/= 2.0 ?Diabetes mellitus -?on lantus and SSI ?? COPD: ?? -on?O2 NC??4L (dried blood to L nare humidified o2 ordered) ?? Dyslipidemia -?Continue atorvastatin. ?PAD -?Stable ? Anemia -Hb??11.4 (10.5)??(8.6) -monitor ?? I can be reached at [phone] with any concerns. Thank you Rhina Granados MD for the consult. Yves Weinberg MD [employer] [phone] F FORESTER * Elena Kelly NP - 05/19/2021 7:00 PM CST Images from the original note were not included. Critical Care Medicine Daily Progress Team: Community PM Subjective Patient is a 60 y.o. y/o male admitted on 05/01/2021 5:20 PM with the following indication(s) for ICU care hypoxemic respiratory failure, pulmonary edema, hypokalemia, shock Interval History: - CT Chest -> c/f viral pneumonia - COVID Positive - Started on Dexamethasone and remdesivir - Sating 83% on 4 L/NC -> increased to 15 L/NC - Sniff test pending HPI (05/17) 60M smoker hx copd, obesity, pvd, htn, hld, dm2 & CAD s/p multiple LAD stents who p/w anterior STEMI after bladder procedure on 04/29. [facility] was taken to [facility] on [facility] where they found in-stent thrombosis and an angioplasty was performed but stent could not be placed. A balloon pump was placed and the patient was transferred to the CVU. CT-surgery was consulted for CABG. The patie nt underwent a 4 vessel cabg on 05/04 w/ Dr. Granados (MAE->LAD, Saph vein->diag & obtuse, Saph->PDA). He developed rebleeding from his bladder tumor and this was adressed by urology. Heself extubated the next day after his CABG. His osorio was removed yesterday and he is currently post op day 11 from the CABG. He has been getting diuresed on the floor but has unfortunately had increasing oxygen requirement for the last 24 hours despite diuresis. He is currently on a non-rebreatherand being transferred to the ICU. Hospital Course 04/29 Cystoscopy at [facility] 04/30 STEMI, [facility] -> instent thrombosis, angioplasty, IABP, transfer to [facility] 05/04/21: Increased blood clot from osorio and obstruction with pain. 05/05/21: Brief asystole o/n w turning. Stable after. Self extubated in AM. 05/06/21: NAEON. Maintained on CPAP and optiflow. 05/07/21: NAEON. Up in chair at time of exam. TTF 05/10 near syncopal episode 05/14 cystoscopy with clot removal and fulguration of bleeding 05/17 readmit to ICU with pulmonary edema, lasix drip 05/18 Nasal cannula, on/off pressors, Negative VQ, ACTH Stim unremarkable 05/19 COVID positive, 15 L/NC, Remdesivir, dexamethasone Scheduled Medications: aspirin, 81 mg, oral, Daily atorvastatin, 80 mg, oral, Nightly dexAMETHasone, 6 mg, intravenous, Daily docusate sodium, 100 mg, oral, BID enoxaparin, 40 mg, subcutaneous, Daily-2100 insulin glargine, 8 Units, subcutaneous, QAM insulin lispro, 0-12 Units, subcutaneous, 5x daily (with meals, nightly, & 0200) insulin NPH, 5 Units, subcutaneous, Daily ipratropium-albuteroL, 3 mL, nebulization, Q4H While awake (RT) [Held by Provider] metoprolol tartrate, 12.5 mg, oral, BID midodrine, 15 mg, oral, Q6H pantoprazole DR, 40 mg, oral, Daily potassium chloride ER, 40 mEq, oral, Daily QUEtiapine, 25 mg, oral, Nightly [START ON 05/21/2021] remdesivir, 100 mg, intravenous, Q24H remdesivir, 200 mg, intravenous, Q24H sodium chloride 0.9%, 0.5-20 mL, intra-catheter, Q8H LEAH tamsulosin, 0.4 mg, oral, Daily with dinner PRN Medications: ??? acetaminophen ? ? al & mag hydroxide wsthflmuojv-gjsggiufkrkaxnr-rmlmcqonn-nystatin ??? albuterol ??? dextrose OR dextrose ??? glucagon ??? guaiFENesin ??? ondansetron ??? polyethylene glycol Objective Vitals: Most Recent: Vitals: 05/20/21 0000 BP: 103/61 Pulse: 85 Resp: 19 Temp: 36.8 ??C (98.2 ??F) SpO2: 24hr Min/Max: Temp Min: 36.4 ??C (97.5 ??F) Max: 36.8 ??C (98.2 ??F) Pulse Min: 81 Max: 112 BP Min: 86/72 Max: 151/92 Resp Min: 12 Max: 37 SpO2 Min: 81 % Max: 100 % LDA: Introducer 05/04/21 Right Internal jugular (Active) Placement Date/Time: 05/04/21 (c) 1441 Hand Hygiene Performed: Yes Orientation: Right Location: Internal jugular Description (optional): multi-lumen access catheter (MAC) Number of days: 12 I/O: Date 05/19/21 0700 - 05/20/21 0659 05/20/21 0700 - 05/21/21 0659 Shift [id number] 6417-6954 24 Hour Total 7249-9132 4661-8134 24 Hour Total INTAKE P.O. 600 240 840 Shift Total(mL/kg) 600(7.6) 240(3) 840(10.6) OUTPUT Urine(mL/kg/hr) 300 300 Shift Total(mL/kg) 300(3.8) 300(3.8) NET 600 -60 540 Weight (kg) 79 79 79 79 79 79 Physical Exam: Gen:Sittin in chair, ill appearing, NAD HEENT: NC/AT, PERRLA, EOMI Neck: Supple, Trachea Midline CV: NSR, S1 and S2, Distal pulses intact, Warm periphery, cap refill < 5 seconds Pulm: Diminished, on NC Abd: Soft, Nontender, Normoactive BS : Voiding Ext: No edema noted Derm: Warm, Dry, intact, surgical sites appropriately dress and C/D/I Neuro: Alert, Oriented, Moves all extremities Lab/Radiology/Diagnostic Review: Laboratory review: Lab results in the last 24 hours: Recent Results (from the past 24 hour(s)) Potassium, whole blood Collection Time: 05/19/21 1:28 AM Result Value Ref Range Potassium, bld 3.8 3.3 - 4.9 mmol/L POCT glucose Collection Time: 05/19/21 1:43 AM Result Value Ref Range Glucose, POC 166 70 - 199 mg/dL Basic metabolic panel Collection Time: 05/19/21 2:05 AM Result Value Ref Range Sodium 131 (L) 135 - 145 mmol/L Potassium, pl 3.9 3.3 - 4.9 mmol/L Chloride 95 (L) 97 - 110 mmol/L CO2 21 (L) 22 - 32 mmol/L Anion gap 15 2 - 15 mmol/L BUN 49 (H) 8 - 25 mg/dL Creatinine 1.41 (H) 0.80 - 1.30 mg/dL Glucose 180 70 - 199 mg/dL Calcium 8.3 (L) 8.5 - 10.3 mg/dL Magnesium Collection Time: 05/19/21 2:05 AM Result Value Ref Range Magnesium 2.4 1.4 - 2.5 mg/dL eGFR Collection Time: 05/19/21 2:05 AM Result Value Ref Range eGFR 54 mL/min/1.73 m2 Phosphorus Collection Time: 05/19/21 4:44 AM Result Value Ref Range Phosphorus, pl 3.6 2.3 - 4.5 mg/dL Magnesium Collection Time: 05/19/21 4:44 AM Result Value Ref Range Magnesium 2.4 1.4 - 2.5 mg/dL Basic metabolic panel Collection Time: 05/19/21 4:44 AM Result Value Ref Range Sodium 132 (L) 135 - 145 mmol/L Potassium, pl 3.7 3.3 - 4.9 mmol/L Chloride 95 (L) 97 - 110 mmol/L CO2 21 (L) 22 - 32 mmol/L Anion gap 16 (H) 2 - 15 mmol/L BUN 47 (H) 8 - 25 mg/dL Creatinine 1.21 0.80 - 1.30 mg/dL Glucose 156 70 - 199 mg/dL Calcium 8.4 (L) 8.5 - 10.3 mg/dL eGFR Collection Time: 05/19/21 4:44 AM Result Value Ref Range eGFR 65 mL/min/1.73 m2 CBC without differential Collection Time: 05/19/21 4:56 AM Result Value Ref Range WBC 8.0 3.8 - 9.9 K/cumm Hgb 9.8 (L) 13.0 - 17.5 g/dL Hct 29.1 (L) 38.9 - 50.3 % Plt 308 150 - 400 K/cumm MPV 11.7 9.1 - 12.3 fL RBC 3.25 (L) 4.30 - 5.80 M/cumm MCV 89.5 81.3 - 96.4 fL MCH 30.2 27.1 - 33.3 pg MCHC 33.7 32.3 - 35.7 g/dL RDW CV 13.4 11.1 - 14.9 % RDW SD 44.2 35.7 - 48.1 fL NRBC abs 0.00 0.00 - 0.01 K/cumm POCT glucose Collection Time: 05/19/21 7:18 AM Result Value Ref Range Glucose, POC 174 70 - 199 mg/dL POCT glucose Collection Time: 05/19/21 1:00 PM Result Value Ref Range Glucose, POC 239 (H) 70 - 199 mg/dL POCT glucose Collection Time: 05/19/21 4:31 PM Result Value Ref Range Glucose, POC 203 (H) 70 - 199 mg/dL Basic metabolic panel Collection Time: 05/19/21 4:45 PM Result Value Ref Range Sodium 130 (L) 135 - 145 mmol/L Potassium, pl 4.0 3.3 - 4.9 mmol/L Chloride 91 (L) 97 - 110 mmol/L CO2 21 (L) 22 - 32 mmol/L Anion gap 18 (H) 2 - 15 mmol/L BUN 51 (H) 8 - 25 mg/dL Creatinine 1.44 (H) 0.80 - 1.30 mg/dL Glucose 213 (H) 70 - 199 mg/dL Calcium 8.8 8.5 - 10.3 mg/dL eGFR Collection Time: 05/19/21 4:45 PM Result Value Ref Range eGFR 53 mL/min/1.73 m2 POCT glucose Collection Time: 05/19/21 8:37 PM Result Value Ref Range Glucose, POC 165 70 - 199 mg/dL Influenza A/B, RSV, and COVID-19 PCR Nasopharyngeal Collection Time: 05/19/21 8:54 PM Specimen: Nasopharyngeal Result Value Ref Range COVID-19 RNA Positive (A) Negative Influenza A RNA Negative Negative Influenza B RNA Negative Negative RSV RNA Negative Negative First COVID-19 test? No Employeed in healthcare? No Group care resident? No Hospitalized? Yes Is patient in ICU? Yes Symptomatic as defined by CDC? Yes Basic metabolic panel Collection Time: 05/20/21 12:25 AM Result Value Ref Range Sodium 131 (L) 135 - 145 mmol/L Potassium, pl 3.7 3.3 - 4.9 mmol/L Chloride 95 (L) 97 - 110 mmol/L CO2 21 (L) 22 - 32 mmol/L Anion gap 15 2 - 15 mmol/L BUN 47 (H) 8 - 25 mg/dL Creatinine 1.05 0.80 - 1.30 mg/dL Glucose 173 70 - 199 mg/dL Calcium 8.4 (L) 8.5 - 10.3 mg/dL eGFR Collection Time: 05/20/21 12:25 AM Result Value Ref Range eGFR 77 mL/min/1.73 m2 NM Pulmonary Perfusion Imaging Result Date: 05/18/2021 Findings described above are consistent with low probability of pulmonary embolus. The patient has mild vascular congestion. Electronically signed by: Elvira Blackman M.D. XR Chest 1 View Result Date: 05/18/2021 Postoperative and chronic changes. Electronically signed by: Deandre Lomeli M.D. XR Chest 1 View Result Date: 05/17/2021 Mild vascular congestion. Electronically signed by: Elvira Blackman M.D. XR Chest 1 Vw Portable Result Date: 05/17/2021 No change from previous. Electronically signed by: Humphrey Mojica M.D. XR Chest 1 Vw Portable Result Date: 05/17/2021 1. Status post median sternotomy. 2. Right jugular venous catheter in place. 3. Pulmonary vascular congestion. 4. Mild infiltrate in the left lower lobe and possible small left pleural effusion. Electronically signed by: Humphrey Mojica M.D. Plan: Neuro: #Acute pain - Tylenol #Insomnia - Seroquel CV: #Severe multivessel CAD s/p CABG #STEMI #HFrEF, chronic - S/p CABG by MD Granados - CCL (04/30) -> in-stent restenosis, unsuccessful angioplasty, IABP placed - ASA/Atorvastatin, holding plavix - Unable to tolerate ACEi or BB at this time - Cardiology following - CTS following - TTE (05/17) -> EF 35-40% Pulmonary: #Acute hypoxic respiratory failure 2/2 #COVID 19 pneumonia - Increasing O2 overnight -> up to 15L/NC, NPPV as needed - V/Q (05/18) -> low probability for PE - CT Chest (05/19) -> c/f viral pneumonia - COVID 19 positive (05/19) - Dexamethasone - Remdesivir - Aggressive pulmonary hygiene, IS, OOBTC in am - Maintain sats> 92% - Sniff test pending GI: Diet: Heart healthy PUD PPx: Pantoprazole Bowel regimen: Docusate Endo: #Hyperglycemia, likely 2/2 stress response - Glycemic control - Lantus/SSI/NPH with steroids - Frequent accuchecks - Endocrine following Renal: #ISRRAEL - BUN/Cr 51/1.44 - FBG net negative - trend renal function, avoid nephrotoxins, renal dose medications - optimize electrolytes with caution to renal function -goal K ~4, Mg > 2.2, phos > 3, iCAL > 4.5 -provide supplement as needed -AM BMP and electrolytes check #Hematuria 2/2 #Bladder tumor - (05/14) Cystoscopy for clot evacuation and cessation of bleeding sites - Osorio removed that night - Per urology, okay to place osorio - Bladder scan - Urology following - Flomax #High anion gap metabolic acidosis - Likely related to hypoxemia - Lactate negative - BHO negative - ABG WNL - Repeat BMP in am Heme: #ABLA 2/2 surgery - No active signs of bleeding - Transfuse for hgb < 8 - CBC in am DVT PPX: SCD's/Lovenox ID: #COVID 19 pneumonia - WBC: 8 - Tmax: 36.8 - Remdesivir - Dexamethasone - CBC in am - CXR in am for evaluation of lung escamilla - Trend WBC and fever curve ICU standards of care: Physical therapy/Activity: PT/OT Access: RIShreya introducer (05/04) Goals of care: Full code Community PM Assessment and plan has been reviewed with attending, MD Sushila Kelly, [facility] [phone], [place] 1 Critical Care Medicine [facility] in [employer] [facility] Cosigned by Jose Conti MD at 05/20/2021 2:40 AM STAFF FORESTER F FORESTER F FORESTER * Cristina Anaya RD - 05/19/2021 5:14 PM CST Nutrition Assessment Reason for Assessment: Follow Up Encounter Date: 05/19/21 5:14 PM Nutrition Assessment and Plan: Patient is a 60 y.o. male. Admit Dx: STEMI. Admitted on 05/01/2021, current LOS is 18 days. Patientremains in the ICU, POD#15 S/P CABG x 4. Surgical incision to chest and right leg. BM 05/16. Poor PO intakes continue. Patient complains of sore throat and tongue related to ET tube and self-extubation. Complains of difficulty chewing due to poor dentition, continuing mechanical soft diet. Dislikestaste of Ensure High Protein, will discontinue and modify to Boost (chocolate) TID for trial. Patient's family in room during interview. Pt reports normally skipping breakfast meal. Son? In room reports that they usually eat out, eat junk food for lunch. Food preferences include: Like - soup, mashed potatoes, iced tea, eggs, grape juice. Does not drink soda. Will update food preferences in [employer]. Pt states he has not reviewed diet education handouts left by previous RD. Education wasoffered but patient declined. Continue to encourage PO intakes. Will closely monitor weight trends as patient is at risk for malnutrition due to poor energy intake. Current diet order: Adult Diet Modified Consistency; Mechanical Soft; Low Fat, Low Chol, Low Na; Consistent Carb 2000 maggie Pt intake is inadequate. PO intakes since last admission: 0% x 6, 25% x 2, Kept Tray x 1; Snack 100% x 1 Nutrition Diagnosis 1: Inadequate oral intake Related to: Food choices Evidenced by: Patient interview,PO under 50% Nutrition Diagnosis 2: Increased nutrient needs (protein)Related to: Recent surgeryEvidenced by: Physical finding ?? Interventions: Communication,Encouragement,Modify supplement,[place] diet preferences within the limits of nutrition care order (Modifying oral supplement to Boost tid, entering more food preferences in [employer].) ?? Monitoring and Evaluation: Appetite,Blood glucoses,Discharge plans,Food preferences,Labs,Plan ofcare,PO intake,Supplement tolerance,Swallow function,Weight changes,Wound healing ?? Goals: Adequate nutrition to meet estimated needs by next assessment,Oral intake to meet 75% estimated nutritional needs by next assessment,Patient/caregiver able to teach back understanding of role of diet in disease process prior to discharge,Tolerance of medical food supplement by next assessment,Diet consistency appropriate for patient needs during stay Estimated needs: ?? MSJ Total Energy Needs: 1995 kcal using Activity Factor: 1.25 ?? Total Protein Estimated Needs (gm): 102.7 Protein Needs Based on g/k.3 Type of Weight Used for Estimated Protein : Current. ?? Estimated Fluid Needs ?? Type of Weight Used for Estimated Fluid Needs: Current ?? Fluid Needs Based on : 1 ml/kcal ?? Total Fluid Estimated Needs: 1995 mL/day Objective Anthropometrics Weight: 79 kg (174 lb 2.6 oz) Admission Weight : 86.2 kg Weight Change: -0.10 kg (-0.22 lbs) IBW/kg (Calculated) : 72.6 kg Height: 175.3 cm (5' 9.02 ) Weight in (lb) to have BMI = 25: 169 BMI (Calculated): 25.7 BMI Classification: BMI 25.0 - 29.9 Overweight 3 Day I/O Summary 05/17 1900 - 05/19 0659 In: 1392 [P.O.:720; I.V.:422] Out: 1245 [Urine:1245] Temp: 36.6 ??C (97.8 ??F) Minute Ventilation (L/min): 12.7 L/min Past Medical History: Diagnosis Date ??? Chronic obstructive pulmonary disease (CMS/HCC) (HCC) COPD ??? Coronary artery disease ??? Diabetes mellitus (HCC) ??? H/O heart artery stent 2006 ??? Hypertension Hypertension ??? ST elevation (STEMI) myocardial infarction ([facility]) 05/01/2021 Medications and Lab Review: Scheduled Meds: aspirin, 81 mg, oral, Daily atorvastatin, 80 mg, oral, Nightly docusate sodium, 100 mg, oral, BID enoxaparin, 40 mg, subcutaneous, Daily-2100 insulin glargine, 8 Units, subcutaneous, QAM insulin lispro, 0-12 Units, subcutaneous, 5x daily (with meals, nightly, & 0200) ipratropium-albuteroL, 3 mL, nebulization, Q4H While awake (RT) [Held by Provider] metoprolol tartrate, 12.5 mg, oral, BID midodrine, 15 mg, oral, Q6H pantoprazole DR, 40 mg, oral, Daily [START ON 05/20/2021] potassium chloride ER, 40 mEq, oral, Daily QUEtiapine, 25 mg, oral, Nightly sodium chloride 0.9%, 0.5-20 mL, intra-catheter, Q8H LEAH tamsulosin, 0.4 mg, oral, Daily with dinner Continuous Infusions: norepinephrine, 0-2 mcg/kg/min, Last Rate: Stopped (05/19/21 0640) Sodium Date Value Ref Range Status 05/19/2021 130 (L) 135 - 145 mmol/L Final Potassium, pl Date Value Ref Range Status 05/19/2021 4.0 3.3 - 4.9 mmol/L Final BUN Date Value Ref Range Status 05/19/2021 51 (H) 8 - 25 mg/dL Final Creatinine Date Value Ref Range Status 05/19/2021 1.44 (H) 0.80 - 1.30 mg/dL Final Phosphorus, pl Date Value Ref Range Status 05/19/2021 3.6 2.3 - 4.5 mg/dL Final Albumin Date Value Ref Range Status 05/18/2021 3.6 3.5 - 5.0 g/dL Final Magnesium Date Value Ref Range Status 05/19/2021 2.4 1.4 - 2.5 mg/dL Final Calcium Date Value Ref Range Status 05/19/2021 8.8 8.5 - 10.3 mg/dL Final Lab Results Component Value Date HGBA1C 13.5 (H) 05/03/2021 Lab Results Component Value Date GLUCOSE 213 (H) 05/19/2021 GLUCOSE 203 (H) 05/19/2021 GLUCOSE 239 (H) 05/19/2021 GLUCOSE 174 05/19/2021 GLUCOSE 156 05/19/2021 GLUCOSE 180 05/19/2021 GLUCOSE 166 05/19/2021 GLUCOSE 200 (H) 05/18/2021 GLUCOSE 143 05/18/2021 GLUCOSE 143 05/18/2021 Nursing Assessment: Last BM Date: 05/16/21 Bowel Sounds (All Quadrants): Active Emesis Assessment Emesis Color/Appearance: Brown Marko Scale Score: 18 Skin Integrity: Surgical incision Diet Instructions Recommend to eat a generally healthy diet that includes a variety of fruits, vegetables, whole-grain breads, low-fat dairy products, beans, lean meats, and fish. Avoid saturated and trans fats and limit sodium to less than 2,300 mg per day. Avoid foods like desserts, fast food, fried/breaded foods,deli meats, sausage, ruiz, and gravies/sauces. For a Consistent Carbohydrate Diet: Aim to consume 3 meals each day with 60-75 grams of carbohydrate at each one, avoid skipping meals. Avoid sugary drinks like lemonade, regular soda, gatorade, and sweet tea and drink water throughout the day.Monitor your blood sugar and take insulin and medication as directed by your doctor. Call [phone] to speak with a dietitian about any diet related concerns. Recommend to follow up with outpatient nutrition counseling, ask your doctor for a referral and call [phone] to make an appointment. Nutrition Follow-Up : 05/25/[address],LD F FORESTER * Ralf Tomlinson MD - 05/19/2021 11:59 AM CST Pulmonary Daily Progress Chief complaint/reason for consult: Respiratory failure. Interval History: Breathing comf on 2L, improving Alert Afebrile No sputum Or chest pain Presenting History: 60 yo man w COPD, DM, CAD/stents admitted 05/01/21 with chest pain. Had recent hematuria as well. Workup revealed an acute MT. Cath showed multi-vessel CAD. Had balloon pump placed. CABG x 4 done on 05/04/21. He was continued on mechanical ventilation and self extubated this AM (05/05/21). He is on multiple pressors. Sedated with precedex. Some tachypnea. A balloon pump is in place. Current tobacco use. COPD listed as prior diagnosis. No inhalers on home med list. Allergies: Allergies Allergen Reactions ??? Metoclopramide Medications: Scheduled Meds:aspirin, 81 mg, oral, Daily atorvastatin, 80 mg, oral, Nightly docusate sodium, 100 mg, oral, BID enoxaparin, 40 mg, subcutaneous, Daily-2100 [Held by Provider] fludrocortisone, 0.1 mg, oral, Daily insulin glargine, 8 Units, subcutaneous, QAM insulin lispro, 0-12 Units, subcutaneous, 5x daily (with meals, nightly, & 0200) [Held by Provider] metoprolol tartrate, 12.5 mg, oral, BID midodrine, 15 mg, oral, Q6H pantoprazole DR, 40 mg, oral, Daily [START ON 05/20/2021] potassium chloride ER, 40 mEq, oral, Daily QUEtiapine, 25 mg, oral, Nightly sodium chloride 0.9%, 0.5-20 mL, intra-catheter, Q8H LEAH tamsulosin, 0.4 mg, oral, Daily with dinner Continuous Infusions:norepinephrine, 0-2 mcg/kg/min, Last Rate: Stopped (05/19/21 0640) PRN Meds:.??? acetaminophen ? ? al & mag hydroxide ijykwqvxull-sjkehwbbajymxrp-jkbuhpnrl-nystatin ??? albuterol ??? dextrose OR dextrose ??? glucagon ??? ondansetron ??? polyethylene glycol ROS Above review of system reviewed on 05/19/2021 Vitals: Vitals: 05/19/21 0730 05/19/21 0745 05/19/21 0800 05/19/21 0815 BP: 91/46 (!) 88/59 95/82 BP Location: Patient Position: Pulse: 110 109 110 107 Resp: 20 20 22 25 Temp: 36.8 ??C (98.2 ??F) TempSrc: SpO2: 90% 97% 98% Weight: Height: Temp (24hrs), Av.7 ??C (98.1 ??F), Min:36.7 ??C (98 ??F), Max:36.8 ??C (98.2 ??F) Intake/Output Summary (Last 24 hours) at 05/19/2021 1159 Last data filed at 05/19/2021 0400 Gross per 24 hour Intake 1007 ml Output 250 ml Net 757 ml Physical Exam Constitutional: General: He is not in acute distress. Appearance: He is well-developed. HENT: Head: Normocephalic and atraumatic. Eyes: Conjunctiva/sclera: Conjunctivae normal. Neck: Thyroid: No thyromegaly. Cardiovascular: Rate and Rhythm: Normal rate and regular rhythm. Heart sounds: No murmur heard. Pulmonary: Effort: Pulmonary effort is normal. No respiratory distress. Breath sounds: Normal breath sounds. No stridor. No wheezing, rhonchi or rales. Chest: Comments: Sternotomy incision Abdominal: General: Bowel sounds are normal. Palpations: Abdomen is soft. Skin: General: Skin is warm and dry. Neurological: Mental Status: He is alert. Lab/Radiology/Diagnostic Review: Labs: Recent Labs Lab Units 05/19/21 0456 05/18/21 0204 05/17/21 0333 WBC K/cumm 8.0 7.6 8.7 HEMOGLOBIN g/dL 9.8* 11.2* 11.3* HEMATOCRIT % 29.1* 33.0* 33.8* PLATELETS K/cumm 308 278 267 NEUTROS PCT % -- -- 78.4 LYMPHS PCT % -- -- 11.7 MONOS PCT % -- -- 9.0 EOS PCT % -- -- 0.1 Recent Labs Lab Units 05/19/21 0718 05/19/21 0444 05/19/21 0205 05/19/21 0143 05/18/21 2137 05/18/21 2000 05/18/21 1730 05/17/21 0936 05/17/21 0333 SODIUM mmol/L -- 132* 131* -- -- -- 132* 133* < > 133* POTASSIUM PLASMA mmol/L -- 3.7 3.9 -- -- -- 4.3 4.4 < > 2.6* CHLORIDE mmol/L -- 95* 95* -- -- -- 94* 95* < > 92* CO2 mmol/L -- 21* 21* -- -- -- 21* 22 < > 22 ANIONGAP mmol/L -- 16* 15 -- -- -- 17* 16* < > 19* GLUCOSE mg/dL -- 156 180 -- -- < > 143 143 < > 157 POC GLUCOSE MONITOR mg/dL 174 -- -- < > -- < > -- < > -- BUN SERUM mg/dL -- 47* 49* -- -- -- 52* 51* < > 25 CREATININE mg/dL -- 1.21 1.41* -- -- -- 1.82* 1.85* < > 1.06 CALCIUM mg/dL -- 8.4* 8.3* -- -- -- 8.3* 8.3* < > 8.3* ALBUMIN g/dL -- -- -- -- 3.6 -- -- -- 3.5 ALK PHOS Units/L -- -- -- -- 86 -- -- -- 94 ALT Units/L -- -- -- -- 18 -- -- -- 20 AST Units/L -- -- -- -- 60* -- -- -- 64* BILIRUBIN TOTAL mg/dL -- -- -- -- 0.6 -- -- -- 0.7 < > = values in this interval not displayed. Recent Labs Lab Units 05/18/21195205/17/21 0220 PH ART 7.45 7.50* PCO2 ART mmHg 32* 27* PO2 ART mmHg 58* 72* HCO3 ART (CALC) mmol/L 23 24 BASE EXC ART mmol/L -2 -2 O2 SAT ART (JOELLE) % 89* 96* Imaging: CT chest 05/19/21: b gg inf, severe emphysema Other diagnostic tests: I have personally reviewed above laboratory findings, chest imaging, and diagnostic tests 05/19/2021 Assessment and Plan: Acute respiratory failure Acute MT w CAD s/p CABG x 4 on 05/04/21, past hx multiple stents Cardiogenic shock, resolved Cardiomyopathy EF 40% V fib COPD: severe emphysematous changes on CT Anemia Infiltrates: edema v pna, tracheal aspirate w yeast, treated 7 d w zosyn, no need to change therapybased on CT chest Hematuria s/p cystoscopy/fulguration ?? Recs: Oxygen support, wean as able Incentive spirometry Diurese as able abx coverage for pna: Zosyn, completed Scheduled bronchodilators Increase activity as tolerated Chart reviewed F FORESTER * Oscar Gonzalez MD - 05/19/2021 11:50 AM CST Hospitalist Progress Note Name: Deepak Alvarado Admission Date: 05/01/2021 Today's Date: 05/19/2021 Subjective: Pt seen and examined Clinical course: Overall pt condition has improved. Still on 4L per NC today 05/16: feels ok today, on 5L per NC 05/17: transferred to ICU for worsening respiratory distress requiring more O2 05/18/21 Lying in bed To have Picc line placed IV Levophed and Insulin in situ 05/19/21 Still has hypotensive episodes 88/59 to 151/92 Was dizzy briefly when he was in the upright position when being transferred to the chair He was out of bed in the chair for about 2 and 1/2 hours today On 2 liters Oxygen by nasal Cannulla Objective: Vitals: 05/19/21 0730 05/19/21 0745 05/19/21 0800 05/19/21 0815 BP: 91/46 (!) 88/59 95/82 BP Location: Patient Position: Pulse: 110 109 110 107 Resp: Temp: 36.8 ??C (98.2 ??F) TempSrc: SpO2: 90% 97% 98% Weight: Height: Wt Readings from Last 3 Encounters: 05/18/21 79 kg (174 lb 2.6 oz) 08/27/13 114.3 kg (252 lb) 10/19/12 111.6 kg (246 lb) I/O last 3 completed shifts: In: 1392 [P.O.:720; I.V.:422; IV Piggyback:250] Out: 1245 [Urine:1245] No intake/output data recorded. Scheduled Meds Current Facility-Administered Medications Medication Dose Route Frequency Provider Last Rate Last Admin ??? acetaminophen (TYLENOL) tablet 650 mg 650 mg oral Q6H PRN Eleonora Duarte NP 650 mg at 05/19/21 0932 ? ? al & mag hydroxide fmcmaforaib-uueucmhvkbbwiji-wjbpmixck-nystatin (MAGIC MOUTHWASH) suspension 1-1-1-1 20 mL swish & spit Q4H PRN Elena Kelly NP ??? albuterol 2.5 mg /3 mL (0.083 %) nebulizer solution 2.5 mg 2.5 mg nebulization Q4H PRN (RT) Ralf Tomlinson MD 2.5 mg at 05/17/21 0224 ??? aspirin enteric coated tablet 81 mg 81 mg oral Daily Varsha Crowder NP 81 mg at 05/19/21 0809 ??? atorvastatin (LIPITOR) tablet 80 mg 80 mg oral Nightly Rhina Granados MD 80 mg at 05/18/212003 ??? dextrose oral liquid liquid 15 g 15 g oral Q15 Min PRN Anibal Lara MD Or ??? dextrose (D10W) 10% bolus 250 mL 250 mL intravenous Q15 Min PRN Anibal Mon MD ??? docusate sodium (COLACE) capsule 100 mg 100 mg oral BID Rhina Granados MD 100 mg at 05/18/21 0851 ??? enoxaparin (LOVENOX) syringe 40 mg 40 mg subcutaneous Daily-2100 Rhina Granados MD 40 mg at107/18/202005 ??? [Held by Provider] fludrocortisone tablet 0.1 mg 0.1 mg oral Daily Lester Batista MD ??? glucagon injection 1 mg 1 mg intramuscular Q30 Min PRN Anibal Lara MD ??? insulin glargine (LANTUS, SEMGLEE) 100 unit/mL injection 8 Units 8 Units subcutaneous QAM Abelino Leblanc MD 8 Units at 05/19/21 0812 ??? insulin lispro (HumaLOG, ADMELOG) 100 unit/mL injection 0-12 Units 0-12 Units subcutaneous 5x daily (with meals, nightly, & 0200) Abelino Leblanc MD 4 Units at 05/19/21 0813 ??? [Held by Provider] metoprolol tartrate (LOPRESSOR) immediate release tablet 12.5 mg 12.5 mg oral BID Eleonora Duarte NP 12.5 mg at 05/16/21 0909 ??? midodrine (PROAMATINE) tablet 15 mg 15 mg oral Q6H Rhina Granados MD 15 mg at 05/19/21 0809 ??? norepinephrine in 0.9% sodium chloride (LEVOPHED) 8,000 mcg/250 mL (32 mcg/mL) infusion (premix) 0-2 mcg/kg/min intravenous Titrated Rhina Granados MD Stopped at 05/19/21 0640 ??? ondansetron (ZOFRAN) injection 4 mg 4 mg intravenous Q6H PRN Rhina Granados MD ??? pantoprazole DR (PROTONIX) extended release tablet 40 mg 40 mg oral Daily Rhnia Granados MD40 mg at 05/19/21 0810 ??? polyethylene glycol (MIRALAX) packet 17 g 17 g oral Daily PRN Rhina Granados MD ??? [START ON 05/20/2021] potassium chloride ER (KLOR-CON) extended release tablet 40 mEq 40 mEq oral Daily Rhina Granados MD ??? QUEtiapine (SEROquel) tablet 25 mg 25 mg oral Nightly Rhina Granados MD 25 mg at 05/18/212005 ??? sodium chloride 0.9% flush 0.5-20 mL 0.5-20 mL intra-catheter Q8H LEAH Rhina Granados MD 10 mL at 05/18/21 0507 ??? tamsulosin (FLOMAX) extended release capsule 0.4 mg 0.4 mg oral Daily with dinner Elena Kelly, ESCROW CLERK 0.4 mg at 05/18/21 1715 norepinephrine, 0-2 mcg/kg/min, Last Rate: Stopped (05/19/21 0640) ??? acetaminophen ? ? al & mag hydroxide qjhqysgrvqo-vhwrouvcoiaymqp-ifttmqfkp-nystatin ??? albuterol ??? dextrose OR dextrose ??? glucagon ??? ondansetron ??? polyethylene glycol Physical Exam: General: alert, cooperative, no distress, appears stated age 2 Liters of Oxygen by Nasal Cannula HEENT: Head:normacephalic, Eyes: Perrla, EOMI bilaterally, nasal and oral mucosal pink and moist Heart: normal rate, regular rhythm, normal S1, S2, no murmurs, rubs, clicks or gallops Median Sternotomy dressings In situ Lungs: clear to auscultation, no wheezes or rales and unlabored breathing Abdomen: soft, nontender, nondistended, no masses or organomegaly Extremities: peripheral pulses normal, no pedal edema, no clubbing or cyanosis Neuro: alert, oriented x 3, no defects noted in general exam. Lab Data Laboratory review: Chemistry CMP: Lab Results Component Value Date ALBUMIN 3.6 05/18/2021 BUNSER 47 (H) 05/19/2021 CALCIUM 8.4 (L) 05/19/2021 CO2 21 (L) 05/19/2021 CHLORIDE 95 (L) 05/19/2021 CREATININE 1.21 05/19/2021 GLUCOSE 174 05/19/2021 GLUCOSE 156 05/19/2021 POTASSIUM 3.7 05/19/2021 SODIUM 132 (L) 05/19/2021 BILITOT 0.6 05/18/2021 PROT 7.1 05/18/2021 ALT 18 05/18/2021 AST 60 (H) 05/18/2021 ALKPHOS 86 05/18/2021 , CBC: Lab Results Component Value Date WBC 8.0 05/19/2021 RBC 3.25 (L) 05/19/2021 HGB 9.8 (L) 05/19/2021 HCT 29.1 (L) 05/19/2021 MCV 89.5 05/19/2021 MCH 30.2 05/19/2021 MCHC 33.7 05/19/2021 RDWCV 13.4 05/19/2021 RDWSD 44.2 05/19/2021 MPV 11.7 05/19/2021 NRBCABS 0.00 05/19/2021 , Coags: No results found for: PT, PTT, APTT, FFN, FIBRINOGEN, INR, ACTIVATEDCL, Lipids: No resultsfound for: CHOL, CHLPL, HDL, LDLCALC, TRIG, CHOLHDL, Cardiac Enzymes: No results found for: CKTOTAL, CKMB, CKMBINDEX, TROPONINT and POC Glucose: Lab Results Component Value Date GLUCOSE 174 05/19/2021 GLUCOSE 156 05/19/2021 Home Medications have been reviewed and updated on pt's list Assessment and Plan Acute resp failure - self ext 05/05/21 -Lung infiltrates - pulm vascular congestion versus pneumonia - changed to Zosyn due to worsening Leukocytosis -diuresis per ICU with Lasix gtt and Metolazone -pulmonology follows -today in the ICU, back on 4L per NC today ( was up to 15L at some point) Near syncope/Syncope episode, probable vaso vagal, monitor ?? Acute anterior STEMI with CAD , s/p PCI to LAD -s/p CABG x 4 05/04 given re thrombosis of existing stents -s/p IABP, removed 05/06 - ASA, ??statins, BBs, off Plavix ?? Post CABG cardiogenic shock, hypotensive again - s/p??Dobutamine gtt -back on Levophed ?? Ventricular fibrillation - briefly on 05/03 - treated with Amiodarone and Dobutamine gtt, off them ?? Gross Hematuria ?- in a pt with hx of ??cystoscopy, -clot evacuation and transurethral resection of bladder tumor at [facility] -s/p 20??German three way catheter, urine still bloody -holding Plavix and Lovenox -cysto 05/14 with clot evacuation and fulguration ? Type 2 diabetes.??- started on Insulin gtt ?? Acute blood loss anemia ; -s/p PRBC transfusions in ICU - monitor HH, today 9.9 ?? Mild hyponatremia, monitor ?? Hx of ??Tobacco use. ?? Vitamin-D deficiency.- stable DVT prophylaxis :Lovenox Pt will need continued inpatient management for the above medical issues. Code status: full Oscar Gonzalez MD Team Health Hospitalist 05/19/2021 11:50 AM F FORESTER F FORESTER * Caleb Toth PA - 05/19/2021 10:34 AM CSTAssociated Order(s): Critical Care Post-Procedure Diagnose(s): ST elevation myocardial infarction (STEMI), unspecified artery (HCC) Images from the original note were not included. Critical Care Medicine Daily Progress Team: Community AM Subjective Patient is a 60 y.o. y/o male admitted on 05/01/2021 5:20 PM with the following indication(s) for ICU care hypoxemic respiratory failure, pulmonary edema, hypokalemia, shock Interval History: - TSH unremarkable - Intermittent low dose pressors - Check Sniff test - CT Chest - IS ~ 1 L - f/u urology regarding osorio > Okay to place if needed HPI (05/17) 60M smoker hx copd, obesity, pvd, htn, hld, dm2 & CAD s/p multiple LAD stents who p/w anterior STEMI after bladder procedure on 04/29. [facility] where they found in-stent thrombosis and an angioplasty was performed but stent could not be placed. A balloon pump was placed and the patient was transferred to the CVU. CT-surgery was consulted for CABG. The patie nt underwent a 4 vessel cabg on 05/04 w/ Dr. Granados (MAE->LAD, Saph vein->diag & obtuse, Saph->PDA). He developed rebleeding from his bladder tumor and this was adressed by urology. Heself extubated the next day after his CABG. His osorio was removed yesterday and he is currently post op day 11 from the CABG. He has been getting diuresed on the floor but has unfortunately had increasing oxygen requirement for the last 24 hours despite diuresis. He is currently on a non-rebreatherand being transferred to the ICU. Hospital Course 05/04: Increased blood clot from osorio and obstruction with pain. 05/05: Brief asystole o/n w turning. Stable after. Self extubated in AM. 05/06: NAEON. Maintained on CPAP and optiflow. 05/07: NAEON. Up in chair at time of exam. 05/08 - transfer to floor 05/17 - Readmit ICU hypoxic on pressors, lasix drip 05/18 - Nasal cannula, on/off pressors, Negative VQ, ACTH Stim unremarkable, TSH unremarkable 05/19 - Nasal cannula, on/off pressors, Scheduled Medications: aspirin, 81 mg, oral, Daily atorvastatin, 80 mg, oral, Nightly docusate sodium, 100 mg, oral, BID enoxaparin, 40 mg, subcutaneous, Daily-2100 [Held by Provider] fludrocortisone, 0.1 mg, oral, Daily insulin glargine, 8 Units, subcutaneous, QAM insulin lispro, 0-12 Units, subcutaneous, 5x daily (with meals, nightly, & 0200) [Held by Provider] metoprolol tartrate, 12.5 mg, oral, BID midodrine, 15 mg, oral, Q6H pantoprazole DR, 40 mg, oral, Daily [START ON 05/20/2021] potassium chloride ER, 40 mEq, oral, Daily QUEtiapine, 25 mg, oral, Nightly sodium chloride 0.9%, 0.5-20 mL, intra-catheter, Q8H LEAH tamsulosin, 0.4 mg, oral, Daily with dinner Continuous Medications: norepinephrine, 0-2 mcg/kg/min, Last Rate: Stopped (05/19/21 0640) PRN Medications: ??? acetaminophen ? ? al & mag hydroxide zomalpemlqs-fwhjsoaisroeshd-vchnxwrij-nystatin ??? albuterol ??? dextrose OR dextrose ??? glucagon ??? ondansetron ??? polyethylene glycol Objective Vitals: Most Recent: Vitals: 05/19/21 0815 BP: 95/82 Pulse: 107 Resp: 25 Temp: SpO2: 98% 24hr Min/Max: Temp Min: 36.7 ??C (98 ??F) Max: 36.8 ??C (98.2 ??F) Pulse Min: 84 Max: 110 BP Min: 69/46 Max: 151/92 Resp Min: 13 Max: 31 SpO2 Min: 83 % Max: 98 % LDA: Introducer 05/04/21 Right Internal jugular (Active) Placement Date/Time: 05/04/21 (c) 1441 Hand Hygiene Performed: Yes Orientation: Right Location: Internal jugular Description (optional): multi-lumen access catheter (MAC) Number of days: 12 Vent settings: Hemodynamic parameters for last 24 hours: CVP: [1 mmHg-11 mmHg] 10 mmHg I/O: Date 05/18/21 0700 - 05/19/21 0659 05/19/21 0700 - 05/20/21 0659 Shift 5658-3184 9683-5996 24 Hour Total 7461-4817 5624-8584 24 Hour Total INTAKE P.O. 180 360 540 I.V.(mL/kg) 22(0.3) 255(3.2) 277(3.5) IV Piggyback 250 250 Shift Total(mL/kg) 452(5.7) 615(7.8) 1067(13.5) OUTPUT Urine(mL/kg/hr) 200(0.2) 50(0.1) 250(0.1) Shift Total(mL/kg) 200(2.5) 50(0.6) 250(3.2) NET 252 565 817 Weight (kg) 79.1 79 79 79 79 79 Physical Exam: Gen: Sittin in chair, ill appearing, NAD HEENT: NC/AT, PERRLA, EOMI Neck: Supple, Trachea Midline CV: Sinus Tach, S1 and S2 heard, Distal pulses intact, Warm periphery, cap refill < 5 seconds Pulm: Diminished, on NC Abd: Soft, Nontender, Normoactive BS : Voiding Ext: No edema noted, Derm: Warm, Dry, intact, surgical sites appropriately dress and C/D/I Psych: Interacting appropriately, Cooperative Neuro: Alert, Oriented, Moves all extremities Lab/Radiology/Diagnostic Review: Laboratory review: Lab results in the last 24 hours: Recent Results (from the past 24 hour(s)) POCT glucose Collection Time: 05/18/21 11:06 AM Result Value Ref Range Glucose, POC 209 (H) 70 - 199 mg/dL POCT glucose Collection Time: 05/18/21 12:15 PM Result Value Ref Range Glucose, POC 230 (H) 70 - 199 mg/dL Basic metabolic panel Collection Time: 05/18/21 12:36 PM Result Value Ref Range Sodium 130 (L) 135 - 145 mmol/L Potassium, pl 3.7 3.3 - 4.9 mmol/L Chloride 93 (L) 97 - 110 mmol/L CO2 20 (L) 22 - 32 mmol/L Anion gap 17 (H) 2 - 15 mmol/L BUN 48 (H) 8 - 25 mg/dL Creatinine 1.73 (H) 0.80 - 1.30 mg/dL Glucose 239 (H) 70 - 199 mg/dL Calcium 8.3 (L) 8.5 - 10.3 mg/dL Cortisol Collection Time: 05/18/21 12:36 PM Result Value Ref Range Cortisol 25.5 (H) 4.8 - 19.5 mcg/dl eGFR Collection Time: 05/18/21 12:36 PM Result Value Ref Range eGFR 42 mL/min/1.73 m2 POCT glucose Collection Time: 05/18/21 1:21 PM Result Value Ref Range Glucose, POC 197 70 - 199 mg/dL Cortisol Collection Time: 05/18/21 1:51 PM Result Value Ref Range Cortisol 53.1 (H) 4.8 - 19.5 mcg/dl Cortisol Collection Time: 05/18/21 2:32 PM Result Value Ref Range Cortisol >63.0 (H) 4.8 - 19.5 mcg/dl POCT glucose Collection Time: 05/18/21 5:22 PM Result Value Ref Range Glucose, POC 141 70 - 199 mg/dL Basic metabolic panel Collection Time: 05/18/21 5:30 PM Result Value Ref Range Sodium 132 (L) 135 - 145 mmol/L Potassium, pl 4.3 3.3 - 4.9 mmol/L Chloride 94 (L) 97 - 110 mmol/L CO2 21 (L) 22 - 32 mmol/L Anion gap 17 (H) 2 - 15 mmol/L BUN 52 (H) 8 - 25 mg/dL Creatinine 1.82 (H) 0.80 - 1.30 mg/dL Glucose 143 70 - 199 mg/dL Calcium 8.3 (L) 8.5 - 10.3 mg/dL Basic metabolic panel Collection Time: 05/18/21 5:30 PM Result Value Ref Range Sodium 133 (L) 135 - 145 mmol/L Potassium, pl 4.4 3.3 - 4.9 mmol/L Chloride 95 (L) 97 - 110 mmol/L CO2 22 22 - 32 mmol/L Anion gap 16 (H) 2 - 15 mmol/L BUN 51 (H) 8 - 25 mg/dL Creatinine 1.85 (H) 0.80 - 1.30 mg/dL Glucose 143 70 - 199 mg/dL Calcium 8.3 (L) 8.5 - 10.3 mg/dL Magnesium Collection Time: 05/18/21 5:30 PM Result Value Ref Range Magnesium 2.5 1.4 - 2.5 mg/dL TSH reflex to free T4 Collection Time: 05/18/21 5:30 PM Result Value Ref Range TSH 1.46 0.30 - 4.20 mcIUnit/mL eGFR Collection Time: 05/18/21 5:30 PM Result Value Ref Range eGFR 39 mL/min/1.73 m2 eGFR Collection Time: 05/18/21 5:30 PM Result Value Ref Range eGFR 40 mL/min/1.73 m2 Blood gas, arterial Collection Time: 05/18/21 7:53 PM Result Value Ref Range pH, Art 7.45 7.35 - 7.45 PCO2, Arterial 32 (L) 35 - 45 mmHg PO2, Arterial 58 (L) 83 - 108 mmHg HCO3 Art (Calculated) 23 20 - 30 mmol/L BE, art -2 mmol/L O2 Sat Art (Measured) 89 (L) 90 - 95 % POCT glucose Collection Time: 05/18/21 8:00 PM Result Value Ref Range Glucose, POC 200 (H) 70 - 199 mg/dL Lactate Collection Time: 05/18/21 9:37 PM Result Value Ref Range Lactate 0.9 0.7 - 2.0 mmol/L Beta-hydroxybutyrate Collection Time: 05/18/21 9:37 PM Result Value Ref Range Beta-Hydroxybutyrate 0.4 <=0.5 mmol/L Hepatic function panel Collection Time: 05/18/21 9:37 PM Result Value Ref Range Bilirubin, total 0.6 0.1 - 1.2 mg/dL Bilirubin, direct 0.2 0.1 - 0.3 mg/dL Protein, pl 7.1 6.5 - 8.5 g/dL Albumin 3.6 3.5 - 5.0 g/dL Alk phos 86 40 - 130 Units/L ALT 18 7 - 55 Units/L AST 60 (H) 10 - 50 Units/L D-dimer, quantitative Collection Time: 05/18/21 10:01 PM Result Value Ref Range D-Dimer 1,998 (H) <=499 ng/mL FEU Potassium, whole blood Collection Time: 05/19/21 1:28 AM Result Value Ref Range Potassium, bld 3.8 3.3 - 4.9 mmol/L POCT glucose Collection Time: 05/19/21 1:43 AM Result Value Ref Range Glucose, POC 166 70 - 199 mg/dL Basic metabolic panel Collection Time: 05/19/21 2:05 AM Result Value Ref Range Sodium 131 (L) 135 - 145 mmol/L Potassium, pl 3.9 3.3 - 4.9 mmol/L Chloride 95 (L) 97 - 110 mmol/L CO2 21 (L) 22 - 32 mmol/L Anion gap 15 2 - 15 mmol/L BUN 49 (H) 8 - 25 mg/dL Creatinine 1.41 (H) 0.80 - 1.30 mg/dL Glucose 180 70 - 199 mg/dL Calcium 8.3 (L) 8.5 - 10.3 mg/dL Magnesium Collection Time: 05/19/21 2:05 AM Result Value Ref Range Magnesium 2.4 1.4 - 2.5 mg/dL eGFR Collection Time: 05/19/21 2:05 AM Result Value Ref Range eGFR 54 mL/min/1.73 m2 Phosphorus Collection Time: 05/19/21 4:44 AM Result Value Ref Range Phosphorus, pl 3.6 2.3 - 4.5 mg/dL Magnesium Collection Time: 05/19/21 4:44 AM Result Value Ref Range Magnesium 2.4 1.4 - 2.5 mg/dL Basic metabolic panel Collection Time: 05/19/21 4:44 AM Result Value Ref Range Sodium 132 (L) 135 - 145 mmol/L Potassium, pl 3.7 3.3 - 4.9 mmol/L Chloride 95 (L) 97 - 110 mmol/L CO2 21 (L) 22 - 32 mmol/L Anion gap 16 (H) 2 - 15 mmol/L BUN 47 (H) 8 - 25 mg/dL Creatinine 1.21 0.80 - 1.30 mg/dL Glucose 156 70 - 199 mg/dL Calcium 8.4 (L) 8.5 - 10.3 mg/dL eGFR Collection Time: 05/19/21 4:44 AM Result Value Ref Range eGFR 65 mL/min/1.73 m2 CBC without differential Collection Time: 05/19/21 4:56 AM Result Value Ref Range WBC 8.0 3.8 - 9.9 K/cumm Hgb 9.8 (L) 13.0 - 17.5 g/dL Hct 29.1 (L) 38.9 - 50.3 % Plt 308 150 - 400 K/cumm MPV 11.7 9.1 - 12.3 fL RBC 3.25 (L) 4.30 - 5.80 M/cumm MCV 89.5 81.3 - 96.4 fL MCH 30.2 27.1 - 33.3 pg MCHC 33.7 32.3 - 35.7 g/dL RDW CV 13.4 11.1 - 14.9 % RDW SD 44.2 35.7 - 48.1 fL NRBC abs 0.00 0.00 - 0.01 K/cumm POCT glucose Collection Time: 05/19/21 7:18 AM Result Value Ref Range Glucose, POC 174 70 - 199 mg/dL XR Chest 1 View Result Date: 05/16/2021 No change from previous. Electronically signed by: Humphrey Mojica M.D. Plan: Neuro # Insomnia - Seroquel qHS CV # HFrEF in setting of recent CABG and MT - Diuresis defered - Unable to tolerate afterload reduction agents or BB - TTE with reduced EF - Cardiology following # Shock - Undifferentiated - ACTH Stim unremarkable - TSH unremarkable - VQ low probability - NE on/off # CAD - ASA and statin Pulm # Acute Hypoxemic Respiratory Failure, Undifferentiated - Titrate FiO2 for SpO2 > 92 - Pulm hygiene, OOB, IS - CT chest - Sniff test GI Diet: ADAT PUD PPx: PPI Bowel regimen: Colace and Miralax Endo # Possible DKA - Long acting and SSI - Endo following Renal/ # [place] - Follow UOP, lytes and RFP # Hematuria s/p cystoscopy/fulguration - f/u urology regarding ability to place osorio # Electrolyte Derangements - Replacing prn Heme - No acute indication for transfusion - Daily CBC VTE PPx: SCDs and Lovenox ID - Watch off abx ICU standards of care: Restraints: N/A Physical Therapy/Activity: PT Ordered/ To chair TID Access: PICC on 05/18 Other: Goals of care: Full code Community AM Assessment and plan has been reviewed with attending, HEIDY Colon [phone], [place] , IRAIDA 2 Critical Care Medicine [facility] in [employer] Critical Care Performed by: Caleb Toth PA Authorized by: Caleb Toth PA CRITICAL CARE: Team: CHENG Shift: AM Level of Billing: Subsequent Hospital Visit Level 3 My time spent with this patient was 50 minutes: Critical Provider Statement: I have seen and examined the patient on this day of service. I have reviewed and confirmed the history, physical exam, laboratory, and radiographic data as documented in the ICU note. I have reviewed and discussed my treatment plan with the patient's team and other medical/environmental remediation consultant staff. This time was in addition to and separate from care provided by other practitioners on this day of service. Cosigned by Alexandru Porter MD at 05/19/2021 6:17 PM STAFF FORESTER F FORESTER F FORESTER * Vernon Boone MD - 05/19/2021 8:28 AM CST Daily Progress SUBJECTIVE: Pt denies c/o Sitting in chair Denies chest pains. OBJECTIVE: Vitals: 05/19/21 0730 05/19/21 0745 05/19/21 0800 05/19/21 0815 BP: 91/46 (!) 88/59 95/82 BP Location: Patient Position: Pulse: 110 109 110 107 Resp: Temp: 36.8 ??C (98.2 ??F) TempSrc: SpO2: 90% 97% 98% Weight: Height: Intake/Output Summary (Last 24 hours) at 05/19/2021 0828 Last data filed at 05/19/2021 0400 Gross per 24 hour Intake 1007 ml Output 250 ml Net 757 ml Scheduled Medications Medication Dose Route Frequency ??? aspirin enteric coated tablet 81 mg 81 mg oral Daily ??? atorvastatin (LIPITOR) tablet 80 mg 80 mg oral Nightly ??? docusate sodium (COLACE) capsule 100 mg 100 mg oral BID ??? enoxaparin (LOVENOX) syringe 40 mg 40 mg subcutaneous Daily-2100 ??? [Held by Provider] fludrocortisone tablet 0.1 mg 0.1 mg oral Daily ??? furosemide (LASIX) tablet 40 mg 40 mg oral Daily ??? insulin glargine (LANTUS, SEMGLEE) 100 unit/mL injection 8 Units 8 Units subcutaneous QAM ??? insulin lispro (HumaLOG, ADMELOG) 100 unit/mL injection 0-12 Units 0-12 Units subcutaneous 5x daily (with meals, nightly, & 0200) ??? metOLazone (ZAROXOLYN) tablet 10 mg 10 mg oral Daily ??? [Held by Provider] metoprolol tartrate (LOPRESSOR) immediate release tablet 12.5 mg 12.5 mg oral BID ??? midodrine (PROAMATINE) tablet 15 mg 15 mg oral Q6H ??? pantoprazole DR (PROTONIX) extended release tablet 40 mg 40 mg oral Daily ??? potassium chloride (KLOR-CON) packet 40 mEq 40 mEq feeding tube Daily ??? QUEtiapine (SEROquel) tablet 25 mg 25 mg oral Nightly ??? sodium chloride 0.9% flush 0.5-20 mL 0.5-20 mL intra-catheter Q8H LEAH ??? tamsulosin (FLOMAX) extended release capsule 0.4 mg 0.4 mg oral Daily with dinner LABS: Recent Labs Lab Units 05/19/21 0456 WBC K/cumm 8.0 HEMOGLOBIN g/dL 9.8* HEMATOCRIT % 29.1* PLATELETS K/cumm 308 Recent Labs Lab Units 05/19/21 0718 05/19/21 0444 05/19/21 0143 05/18/21 2137 SODIUM mmol/L -- 132* < > -- POTASSIUM PLASMA mmol/L -- 3.7 < > -- CHLORIDE mmol/L -- 95* < > -- CO2 mmol/L -- 21* < > -- ANIONGAP mmol/L -- 16* < > -- GLUCOSE mg/dL -- 156 < > -- POC GLUCOSE MONITOR mg/dL 174 -- < > -- BUN SERUM mg/dL -- 47* < > -- CREATININE mg/dL -- 1.21 < > -- CALCIUM mg/dL -- 8.4* < > -- ALBUMIN g/dL -- -- -- 3.6 ALK PHOS Units/L -- -- -- 86 ALT Units/L -- -- -- 18 AST Units/L -- -- -- 60* BILIRUBIN TOTAL mg/dL -- -- -- 0.6 < > = values in this interval not displayed. No results found for: BNP No results found for: TROPONINI Exam General: in no apparent distress Neuro: Alert and oriented x 3, moves all extremities well HEENT: normocephalic, atraumatic, Lungs: symmetric, unlabored, clear to auscultation bilaterally Heart: S1,S2, regular rate & rhythm, no murmurs, rubs, or gallops Abdomen: soft, non-tender, non-distended, bowel sounds present Extremities: no LE edema, palpable peripheral pulses BL ASSESSMENT/PLAN: 1. CAD status post CABG for STEMI -Cardiac cath on 05/01 with 40% distal LM; 100% prox LAD; 90% prox Cx; 50% prox and distal RCA -Left ventriculogram:??Moderate blanka-apical hypokinesis; echo on 05/02 with EF ~40% -balloon angioplasty was performed during acute MT and subsequently patient underwent CABG x4 on 05/04/2021 - ischemic cardiomyopathy EF 42%?? 2. Hypotensive and not on any chf meds On midodrine Off norepi 3. Fluid overload Lasix drip ?? 2. Dyslipidemia: -stable on Atorvastatin 80mg qday ?? 3. Diabetes -stable on insulin per primary team ?? 4. COPD: -stable without any acute issues ?? 5. PAD: - stable ?? 6. Hematuria- -Plavix is currently on hold??urology following??- -S/P cystoscopy 05/14 Approximately 500-600 mL of clots in the bladder evacuated. Bleeding from the previous tumor resection site approximately 3-4 cm in diameter which was fulgurated and hemostasis obtained. -still with condom cath on, but with urine retention - straight cathed overnight, and no urine in the bag with 319cc retention this am according to Bedside RN 7. Respiratory failure Transferred to icu on 05/17 for increased O2 requirements Pulmonary following Remains hypotensive and tachycardic Renal function stable Add chandu Boone MD, MSN, ANP-[facility] 05/19/2021 8:28 AM F FORESTER * Rich Haynes OT - 05/19/2021 8:02 AM CST Occupational Therapy NOTE / SESSION TYPE: Re-evaluation Patient Name: Deepak Alvarado Date of : 1960 Age / Sex: 60 y.o. / male Room: [place] [id number] Admit Date: 05/01/2021 Date of Service: 05/19/21 Time In: 0950 Time Out: 1019 Primary Diagnosis: ST elevation myocardial infarction (STEMI) (HCC) HPI: Deepak Alvarado is a 60 y.o. male who presents with retrosternal chest pain accompanied by sweating and shortness of breath. Patient underwent bladder surgery (cystoscopy, clot evacuation, and transurethral resection of bladder tumor) ??at [facility] 04/30/2021 and was discharged 05/01/2021. Patient transferred to for emergent cardiac catheterization. Patient admitted with acute anterior wall MT, s/p cardiac cath with PTCA of the LAD and diagonal, intra-aortic balloon pump placement 05/01, CAD, s/p CABG x4 on 05/04/2021 - Dr. Granados. Patient self-extubated on 05/05/2021,post-op tachypnea, acute respiratory failure, cardiogenic shock, cardiomyopathy, EF 40%, s/p IABP removal 05/06/2021 [facility]VAL [facility] COURSE 05/07/21 - 05/18/21: Patient transferred out of ICU on 05/08/21. Pacemakerwires removed on 05/13/21. Patient noted to have hematuria, s/p cystoscopy with clot evacuation andfulguration on 05/14/21, osorio catheter dislodged on 05/15/21. Patient developed acute respiratory failure with increasing O2 requirements, transferred to ICU on 05/17/21, found to have pulmonary edema. Notable History: CAD, s/p multiple stents, HTN, hyperlipidemia, DM, PVD, obesity, tobacco use Past Medical History: Diagnosis Date ??? Chronic obstructive pulmonary disease (CMS/HCC) (HCC) COPD ??? Coronary artery disease ??? Diabetes mellitus (HCC) ??? H/O heart artery stent 2006 ??? Hypertension Hypertension ??? ST elevation (STEMI) myocardial infarction (HCC) 05/01/2021 History reviewed. No pertinent surgical history. Precautions (Including Weight-Bearing): Fall risk, Bed / chair alarm, Sternal precautions and Cardiac precautions Caregiver Present for Session (Yes or No): No SUBJECTIVE: Patient Comment: My backs been hurting Pain Assessment: Pre-therapy pain level: 6 / 10 Pain location: back Pain intervention(s): Repositioned Post-therapy pain level: 6 / 10 Pain scale used: 0-10 SCALE Prior Living Environment and Level of Function: Confirmed with patient this date Lives with:?? and two children (ages 15 and 16) ?? Receives assistance from / other social supports available:??supportive family who is able to provide 24 hour assistance upon discharge as needed ?? Living environment (Type of residence / Entrance accessibility): 1-story house/ trailer, number of outside stairs:??ramped entrance without handrails, number of inside stairs:??0 steps - no basement ?? Bathroom location and setup:??Main floor and Tub/shower combination ?? Prior level of function:? Prior to admission patient independent with:??Bathing, Dressing - Upper Body, Dressing - Lower Body, Eating / Feeding, Gait, Grooming, Medication Management, Toileting and Transfers ?? Patient total assistance with:??House Cleaning - Light, House Cleaning - Heavy, Laundry, Meal Preparation - Simple, Meal Preparation - Complex, Paying Bills and Shopping ?? Mobility device used prior to admission:??No device ?? Equipment available:??Bedside commode, Straight cane and Wheeled walker ?? Community access / Driving:??Driven by others ?? Vocational / Occupation:??unemployed ?? Social roles / Hobbies:??enjoys working on cars and trucks ?? Patient / Family goal(s):?? Just to recover ?? Fall(s) within the last 6 months:??NO OBJECTIVE: Appearance: Presentation upon OT arrival: Patient Sitting in bedside recliner Presentation upon OT departure: Patient Supine with head of bed elevated Bed / chair alarm in place and activated upon OT departure: Yes Call light within arms reach of patient at end of session: Yes Completed patient handoff and notified MANAGER RENTAL / RN, name: Betty, of patient's location and functional status upon completion of session Vital Signs: Heart rate at rest: 109 bpm SPO2 at rest: 97 % Heart rate with activity: 106 bpm SPO2 with activity: 84 % after functional transfer. Increased to 90 % after 2 minutes Oxygen LPM: 3 liters Blood pressure at rest: 95/64 sitting in recliner Blood pressure with activity: 116/75 Cognitive / Perceptual Assessment: Arousal: Alert Orientation: Oriented x4 (person, place, time, and situation) Following commands: Patient follows one-step commands without difficulty, min verbal cues for safety Safety Judgement: Decreased awareness of need for assistance Problem Solving: Assistance required to identify errors made Behavior: Easy to engage Communication: WNL UE ROM / Strength / Coordination: (A)ROM - Right: WNL except shoulder flexion / abduction 90 degrees to maintain sternal precautions Strength - Right: 4/5 throughout except shoulders 3-/5 (A)ROM - Left: WNL except shoulder flexion / abduction 90 degrees to maintain sternal precautions Strength - Left: 4/5 throughout except shoulders 3-/5 Hand Dominance: Right Hogshead Builder Strength (Right) good Hogshead Builder Strength (Left): good Right Serial Opposition: Intact Left Serial Opposition: Intact Balance: Static sitting balance: good sitting in recliner Dynamic sitting balance: good sitting in recliner during ADL Static standing balance: good- standing without device Dynamic standing balance: N/A Mobility / Transfers: Bed mobility (Components & Assistance): sitting EOB > supine with SBA Transfer(s): siting in recliner > sitting EOB with CGA of 1 without device Activities of Daily Living / Living Skills: UE dressing: Not assessed - patient requesting to return to bed due to back pain Lower Body Dressing: Not assessed - patient requesting to return to bed due to back pain Footwear: Patient completed footwear of Footie(s) while Sitting in bedside chair / recliner with overall Supervision assistance. Patient required assistance for verbal cue(s) Other: Patient demonstrated ability to recall 2/4 sternal precautions. Patient recalls no lifting > 5-10 lbs and no lifting arms overhead. Patient educated on avoiding deep bending and pushing/pulling with bilateral UEs. ASSESSMENT: Rehab Potential (Prognosis): good Problem List: Patient has impairments including: Decreased UE ROM , Decreased UE strength, Decreased balance, Decreased mobility, Decreased endurance, Decreased safety awareness, Decreased ADL independence and Pain. Barriers to Discharge: Pain, Limited safety awareness, Limited insight into deficits, Decreased endurance, Upper extremity weakness and Lower extremity weakness PLAN: OT Discharge Recommendations this date: Location: Inpatient rehabilitation pending qualify criteria Supervision: 24 hour Follow-up therapy recommendations: Skilled OT in Inpatient Rehabilitation setting Frequency of therapy: 3-5 times / week Intervention / Education needs: ADL training, Compensatory ADL strategies, Adaptive equipment education, Durable medical equipment education, Balance activities, Functional transfer training, Precautions education, Pursed lip breathing / Relaxation techniques, UE home exercise program education andEnergy conservation techniques Education provided: Patient has been educated on Role of OT, OT plan of care, ADL training, Bed mobility training, Functional transfer training, Safety education, Pursed lip breathing / Relaxation techniques and sternal precautions. Individual(s) verbalized understanding. Short Term Goals / Care Plan: Multi-Disciplinary Problems (from Occupational Therapy) Active Problems Problem[place] [facility] [place]: 05/07/21 Goal Start Date Expected End Date End Date [facility] 3 05/07/21 05/26/21 -- Goal Details: Patient will complete LE dressing with MOD I using compensatory strategies one time Goal Start Date Expected End Date End Date OT [facility] 5 05/07/21 05/26/21 -- Goal Details: Patient will complete chest mobilization exercises with moderate verbal cues one timeto increase tolerance for ADLs Goal Start Date Expected End Date End Date OT [facility] 6 05/08/21 05/26/21 -- Goal Details: Patient will adhere to sternal precautions during ADLS with minimal verbal cues one time Goal Start Date Expected End Date End Date [facility] 7 05/15/21 05/26/21 -- Goal Details: Patient will complete UE dress with set up x1 Goal Start Date Expected End Date End Date [facility] 8 05/15/21 05/26/21 -- Goal Details: Patient will complete transfers to bed/toilet/chair with SBA one time using least restrictive device Reviewed By Devonte Ward RN 05/17/21 0047 Devonte Ward RN 05/11/21 0408 Devonte Ward RN 05/10/21 0257 If this is the last note, consider this the discharge summary Rich Haynes OT 05/19/21 F FORESTER * Angie Davies SALESFORCE ADMINISTRATOR - 05/19/2021 1:35 AM CST Spoke with DEEPIKA Carrera re: Patient desaturations. His oximiter has been reading in the 80s throughout the evening. ESCROW CLERK Elena wanted to try patient on BiPap to resolve issue. ?? When I went in the room, pulse ox was not in place. Placed probe on ear; patient saturating 96% with good waveform. ?? BiPap is in the room in case we need it, but it is my belief that he is simply circulating poorly after his surgery. Discussed with ESCROW CLERK and RN and they are amenable to this. ?? Will continue to monitor. F FORESTER * Yves Weinberg MD - 05/18/2021 8:46 PM CST Nephrology Progress Note [facility] SUBJECTIVE 05/19 Cr 1.6 Na 130. Appears stable. BP remains very soft. Good UO. 05/17 Transferred to ICU for hi O2 requirements. Has left nostril epistaxis. On low dose pressors and lasix and insulin drip. Na 128, should improve with loop diuresis. Cr 1.2. 05/16 Creatinine stable and sodium trending up.On IV lasix,lytes wnl.Osorio out,having some problems with retention- nurses in contact with urology,doing bladder scans. 05/15/21 Doing fair. Osorio out. Has not voided yet. Na 131 with loop diuresis and improved. All labs and data reviewed. Excellent UO. Doing fair. Some flank pain and mild dyspnea. Na 127 and a little lower. BP better. Agreeable to cysto, but urology planning on conservative tx. Will start loop diuresis. OBJECTIVE Vitals: Vitals: 05/18/21 1800 05/18/21 1815 05/18/21 1830 05/18/21 1845 BP: 107/59 100/60 95/60 Pulse: 93 93 90 92 Resp: 18 24 Temp: TempSrc: SpO2: Weight: Height: Intake/Output Summary (Last 24 hours) at 05/18/20212045 Last data filed at 05/18/2021 1900 Gross per 24 hour Intake 867 ml Output 1195 ml Net -328 ml REVIEW OF SYSTEMS Review of Systems Epistaxis, dyspnea. Constitutional: Negative. HENT: Negative. Eyes: Negative. Respiratory: Negative. Cardiovascular: Negative. Gastrointestinal: Negative. Genitourinary: Negative. Musculoskeletal: Negative. Skin: Negative. Allergic/Immunologic: Negative. Hematological: Negative. All other systems reviewed and are negative. PHYSICAL EXAM Physical Exam Constitutional: Appears well-developed. O2 on HENT: wnl Head: Normocephalic. Eyes: Pupils are equal, round, and reactive to light. Neck: Normal range of motion. Neck supple. Cardiovascular: Normal rate. Pulmonary/Chest: Effort normal and breath sounds normal. Abdominal: Soft. NT,active BS Musculoskeletal: Normal range of motion. Neurological: Alert, oriented. Skin: Skin is warm. Nursing note and vitals reviewed. MEDICATIONS Current Facility-Administered Medications: ??? acetaminophen (TYLENOL) tablet 650 mg, 650 mg, oral, Q6H PRN, Eleonora Duarte NP, 650 mg at 05/18/21 1059 ? ? al & mag hydroxide addovrzowhx-jjzkopkkbduyqyt-pehbfnhdg-nystatin (MAGIC MOUTHWASH) suspension 1-1-1-1, 20 mL, swish & spit, Q4H PRN, Elena Kelly NP ??? albumin 5 % bottle - ADS Override Pull, , , , ??? albuterol 2.5 mg /3 mL (0.083 %) nebulizer solution 2.5 mg, 2.5 mg, nebulization, Q4H PRN (RT),Ralf Tomlinson MD, 2.5 mg at 05/17/21 0224 ??? aspirin enteric coated tablet 81 mg, 81 mg, oral, Daily, Varsha Crowder NP, 81 mg at 05/18/21 0851 ??? atorvastatin (LIPITOR) tablet 80 mg, 80 mg, oral, Nightly, Rhina Granados MD, 80 mg at 05/18/212003 ??? dextrose oral liquid liquid 15 g, 15 g, oral, Q15 Min PRN OR dextrose (D10W) 10% bolus 250 mL, 250 mL, intravenous, Q15 Min PRN, Anibal Lara MD ??? docusate sodium (COLACE) capsule 100 mg, 100 mg, oral, BID, 100 mg at 05/18/21 0851 OR [DISCONTINUED] docusate (COLACE) 10 mg/mL oral liquid 100 mg, 100 mg, feeding tube, BID, Rhina Granados MD, 100 mg at 05/05/21 0842 ??? enoxaparin (LOVENOX) syringe 40 mg, 40 mg, subcutaneous, Daily-2100, Rhina Granados MD, 40 mg at 05/18/212005 ??? [Held by Provider] fludrocortisone tablet 0.1 mg, 0.1 mg, oral, Daily, Lester Batista MD ??? [START ON 05/19/2021] furosemide (LASIX) tablet 40 mg, 40 mg, oral, Daily, Rhina Granados MD ??? glucagon injection 1 mg, 1 mg, intramuscular, Q30 Min PRN, Anibal Lara MD ??? insulin glargine (LANTUS, SEMGLEE) 100 unit/mL injection 8 Units, 8 Units, subcutaneous, QAM, Abelino Leblanc MD, 8 Units at 05/18/21 1000 ??? insulin lispro (HumaLOG, ADMELOG) 100 unit/mL injection 0-12 Units, 0-12 Units, subcutaneous, 5x daily (with meals, nightly, & 0200), Abelino Leblanc MD, 3 Units at 05/18/212000 ??? metOLazone (ZAROXOLYN) tablet 10 mg, 10 mg, oral, BID DIURETIC, Jose Conti MD, 10 mg at 05/17/21 1452 ??? [Held by Provider] metoprolol tartrate (LOPRESSOR) immediate release tablet 12.5 mg, 12.5 mg, oral, BID, Eleonora Duarte NP, 12.5 mg at 05/16/21 0909 ??? midodrine (PROAMATINE) tablet 15 mg, 15 mg, oral, Q6H, Rhina Granados MD, 15 mg at 006 ??? norepinephrine in 0.9% sodium chloride (LEVOPHED) 8,000 mcg/250 mL (32 mcg/mL) infusion (premix), 0-2 mcg/kg/min, intravenous, Titrated, Rhina Granados MD, Stopped at 05/18/21 1845 ??? ondansetron (ZOFRAN) injection 4 mg, 4 mg, intravenous, Q6H PRN, Rhina Granados MD ??? pantoprazole DR (PROTONIX) extended release tablet 40 mg, 40 mg, oral, Daily, Rhina Granados MD, 40 mg at 05/18/21 0851 ??? polyethylene glycol (MIRALAX) packet 17 g, 17 g, oral, Daily PRN, Rhina Granados MD ??? potassium chloride ER (KLOR-CON) extended release tablet 40 mEq, 40 mEq, oral, BID, Moreno Whiting MD, 40 mEq at 05/18/212005 ??? QUEtiapine (SEROquel) tablet 25 mg, 25 mg, oral, Nightly, Rhina Granados MD, 25 mg at 05/18/212005 ??? sodium chloride 0.9% flush 0.5-20 mL, 0.5-20 mL, intra-catheter, Q8H LEAH, Rhina Granados MD, 10 mL at 05/18/21 0507 ??? tamsulosin (FLOMAX) extended release capsule 0.4 mg, 0.4 mg, oral, Daily with dinner, Elena Kelly, EFREN, 0.4 mg at 05/18/21 1715 Lab/Radiology/Diagnostic Review: Recent Results (from the past 24 hour(s)) Basic metabolic panel Collection Time: 05/17/21 9:35 PM Result Value Ref Range Sodium 130 (L) 135 - 145 mmol/L Potassium, pl 3.6 3.3 - 4.9 mmol/L Chloride 94 (L) 97 - 110 mmol/L CO2 21 (L) 22 - 32 mmol/L Anion gap 15 2 - 15 mmol/L BUN 43 (H) 8 - 25 mg/dL Creatinine 1.63 (H) 0.80 - 1.30 mg/dL Glucose 140 70 - 199 mg/dL Calcium 8.4 (L) 8.5 - 10.3 mg/dL eGFR Collection Time: 05/17/21 9:35 PM Result Value Ref Range eGFR 45 mL/min/1.73 m2 POCT glucose Collection Time: 05/17/21 9:45 PM Result Value Ref Range Glucose, POC 193 70 - 199 mg/dL POCT glucose Collection Time: 05/17/21 10:50 PM Result Value Ref Range Glucose, POC 82 70 - 199 mg/dL POCT glucose Collection Time: 05/17/21 11:55 PM Result Value Ref Range Glucose, POC 106 70 - 199 mg/dL POCT glucose Collection Time: 05/18/21 1:00 AM Result Value Ref Range Glucose, POC 111 70 - 199 mg/dL POCT glucose Collection Time: 05/18/21 2:03 AM Result Value Ref Range Glucose, POC 108 70 - 199 mg/dL Basic metabolic panel Collection Time: 05/18/21 2:04 AM Result Value Ref Range Sodium 132 (L) 135 - 145 mmol/L Potassium, pl 3.7 3.3 - 4.9 mmol/L Chloride 95 (L) 97 - 110 mmol/L CO2 22 22 - 32 mmol/L Anion gap 15 2 - 15 mmol/L BUN 44 (H) 8 - 25 mg/dL Creatinine 1.63 (H) 0.80 - 1.30 mg/dL Glucose 111 70 - 199 mg/dL Calcium 8.6 8.5 - 10.3 mg/dL Phosphorus Collection Time: 05/18/21 2:04 AM Result Value Ref Range Phosphorus, pl 4.6 (H) 2.3 - 4.5 mg/dL Magnesium Collection Time: 05/18/21 2:04 AM Result Value Ref Range Magnesium 2.7 (H) 1.4 - 2.5 mg/dL CBC without differential Collection Time: 05/18/21 2:04 AM Result Value Ref Range WBC 7.6 3.8 - 9.9 K/cumm Hgb 11.2 (L) 13.0 - 17.5 g/dL Hct 33.0 (L) 38.9 - 50.3 % Plt 278 150 - 400 K/cumm MPV 12.2 9.1 - 12.3 fL RBC 3.71 (L) 4.30 - 5.80 M/cumm MCV 88.9 81.3 - 96.4 fL MCH 30.2 27.1 - 33.3 pg MCHC 33.9 32.3 - 35.7 g/dL RDW CV 13.5 11.1 - 14.9 % RDW SD 44.2 35.7 - 48.1 fL NRBC abs 0.00 0.00 - 0.01 K/cumm eGFR Collection Time: 05/18/21 2:04 AM Result Value Ref Range eGFR 45 mL/min/1.73 m2 POCT glucose Collection Time: 05/18/21 3:01 AM Result Value Ref Range Glucose, POC 118 70 - 199 mg/dL POCT glucose Collection Time: 05/18/21 3:57 AM Result Value Ref Range Glucose, POC 140 70 - 199 mg/dL POCT glucose Collection Time: 05/18/21 4:58 AM Result Value Ref Range Glucose, POC 152 70 - 199 mg/dL POCT glucose Collection Time: 05/18/21 5:52 AM Result Value Ref Range Glucose, POC 140 70 - 199 mg/dL Basic metabolic panel Collection Time: 05/18/21 6:19 AM Result Value Ref Range Sodium 132 (L) 135 - 145 mmol/L Potassium, pl 3.1 (L) 3.3 - 4.9 mmol/L Chloride 95 (L) 97 - 110 mmol/L CO2 21 (L) 22 - 32 mmol/L Anion gap 16 (H) 2 - 15 mmol/L BUN 44 (H) 8 - 25 mg/dL Creatinine 1.38 (H) 0.80 - 1.30 mg/dL Glucose 145 70 - 199 mg/dL Calcium 8.1 (L) 8.5 - 10.3 mg/dL Pro B-type natriuretic peptide Collection Time: 05/18/21 6:19 AM Result Value Ref Range NT-proBNP 2,488 (H) <=300 pg/mL eGFR Collection Time: 05/18/21 6:19 AM Result Value Ref Range eGFR 56 mL/min/1.73 m2 POCT glucose Collection Time: 05/18/21 6:56 AM Result Value Ref Range Glucose, POC 131 70 - 199 mg/dL POCT glucose Collection Time: 05/18/21 8:01 AM Result Value Ref Range Glucose, POC 147 70 - 199 mg/dL POCT glucose Collection Time: 05/18/21 9:04 AM Result Value Ref Range Glucose, POC 167 70 - 199 mg/dL POCT glucose Collection Time: 05/18/21 11:06 AM Result Value Ref Range Glucose, POC 209 (H) 70 - 199 mg/dL POCT glucose Collection Time: 05/18/21 12:15 PM Result Value Ref Range Glucose, POC 230 (H) 70 - 199 mg/dL Basic metabolic panel Collection Time: 05/18/21 12:36 PM Result Value Ref Range Sodium 130 (L) 135 - 145 mmol/L Potassium, pl 3.7 3.3 - 4.9 mmol/L Chloride 93 (L) 97 - 110 mmol/L CO2 20 (L) 22 - 32 mmol/L Anion gap 17 (H) 2 - 15 mmol/L BUN 48 (H) 8 - 25 mg/dL Creatinine 1.73 (H) 0.80 - 1.30 mg/dL Glucose 239 (H) 70 - 199 mg/dL Calcium 8.3 (L) 8.5 - 10.3 mg/dL Cortisol Collection Time: 05/18/21 12:36 PM Result Value Ref Range Cortisol 25.5 (H) 4.8 - 19.5 mcg/dl eGFR Collection Time: 05/18/21 12:36 PM Result Value Ref Range eGFR 42 mL/min/1.73 m2 POCT glucose Collection Time: 05/18/21 1:21 PM Result Value Ref Range Glucose, POC 197 70 - 199 mg/dL Cortisol Collection Time: 05/18/21 1:51 PM Result Value Ref Range Cortisol 53.1 (H) 4.8 - 19.5 mcg/dl Cortisol Collection Time: 05/18/21 2:32 PM Result Value Ref Range Cortisol >63.0 (H) 4.8 - 19.5 mcg/dl POCT glucose Collection Time: 05/18/21 5:22 PM Result Value Ref Range Glucose, POC 141 70 - 199 mg/dL Basic metabolic panel Collection Time: 05/18/21 5:30 PM Result Value Ref Range Sodium 132 (L) 135 - 145 mmol/L Potassium, pl 4.3 3.3 - 4.9 mmol/L Chloride 94 (L) 97 - 110 mmol/L CO2 21 (L) 22 - 32 mmol/L Anion gap 17 (H) 2 - 15 mmol/L BUN 52 (H) 8 - 25 mg/dL Creatinine 1.82 (H) 0.80 - 1.30 mg/dL Glucose 143 70 - 199 mg/dL Calcium 8.3 (L) 8.5 - 10.3 mg/dL Basic metabolic panel Collection Time: 05/18/21 5:30 PM Result Value Ref Range Sodium 133 (L) 135 - 145 mmol/L Potassium, pl 4.4 3.3 - 4.9 mmol/L Chloride 95 (L) 97 - 110 mmol/L CO2 22 22 - 32 mmol/L Anion gap 16 (H) 2 - 15 mmol/L BUN 51 (H) 8 - 25 mg/dL Creatinine 1.85 (H) 0.80 - 1.30 mg/dL Glucose 143 70 - 199 mg/dL Calcium 8.3 (L) 8.5 - 10.3 mg/dL Magnesium Collection Time: 05/18/21 5:30 PM Result Value Ref Range Magnesium 2.5 1.4 - 2.5 mg/dL TSH reflex to free T4 Collection Time: 05/18/21 5:30 PM Result Value Ref Range TSH 1.46 0.30 - 4.20 mcIUnit/mL eGFR Collection Time: 05/18/21 5:30 PM Result Value Ref Range eGFR 39 mL/min/1.73 m2 eGFR Collection Time: 05/18/21 5:30 PM Result Value Ref Range eGFR 40 mL/min/1.73 m2 Blood gas, arterial Collection Time: 05/18/21 7:53 PM Result Value Ref Range pH, Art 7.45 7.35 - 7.45 PCO2, Arterial 32 (L) 35 - 45 mmHg PO2, Arterial 58 (L) 83 - 108 mmHg HCO3 Art (Calculated) 23 20 - 30 mmol/L BE, art -2 mmol/L O2 Sat Art (Measured) 89 (L) 90 - 95 % POCT glucose Collection Time: 05/18/21 8:00 PM Result Value Ref Range Glucose, POC 200 (H) 70 - 199 mg/dL XR Chest 1 View - Portable - in AM Result Date: 05/11/2021 Narrative: EXAMINATION: XR CHEST 1 VIEW HISTORY: The patient is a 60-year-old male who has had cardiac surgery. Comparison made with the previous study dated 05/10/2021. TECHNIQUE: AP portable view of the chest. FINDINGS: Lungs clear. Heart not enlarged. Aortic atherosclerosis. No failure. The right IJ [place] catheter has been retracted with its tip in the distal superior vena cava. Impression: IMPRESSION: No failure. Electronically signed by: Elvira Blackman M.D. XR Chest 1 View - Portable - in AM Result Date: 05/10/2021 Narrative: EXAMINATION: XR CHEST 1 VIEW DATE: 05/10/2021 2:40 AM COMPARISON: 05/09/2021 HISTORY: 60-year-old man cardiac surgery follow-up FINDINGS:Compared with study the previous day, significant improvement. There is cardiomegaly with postsurgical changes with continued and decreasing failure. Bibasilar atelectasis with left pleural fluid decreasing. No pneumothorax. [place] catheter remainsin place Impression: Decreasing failure, atelectasis and left effusion. Electronically signed by: Deandre Lomeli M.D. XR Chest 1 View - Portable - in AM Result Date: 05/09/2021 Narrative: EXAMINATION: XR CHEST 1 VIEW DATE: 05/09/2021 4:10 AM HISTORY: 60-year-old man cardiac surgery follow-up FINDINGS:Compared with study the previous day, significant improvement. There is cardiomegaly with postsurgical changes with continued but decreasing failure. Bibasilar atelectasis with left pleural fluid decreasing. No pneumothorax. [place] catheter remains in place Impression: Decreasing failure, atelectasis and left effusion. Electronically signed by: Deandre Lomeli M.D. XR Chest 1 View - Portable - in AM Result Date: 05/08/2021 Narrative: EXAMINATION: XR CHEST 1 VIEW DATE: 05/08/2021 4:15 AM HISTORY: 60-year-old man cardiac surgery follow-up FINDINGS:Compared with study the previous day, significant improvement. There is cardiomegaly with postsurgical changes with continued but decreasing failure. Bibasilar atelectasis with left pleural fluid. No pneumothorax. [place] catheter remains in place Impression: Decreasing failure. No pneumothorax. Electronically signed by: Deacon Cummings M.D. XR Chest 1 View - Portable - in AM Result Date: 05/07/2021 Narrative: EXAMINATION: XR CHEST 1 VIEW DATE: 05/07/2021 3:55 AM HISTORY: 60-year-old man follow-upcardiac surgery FINDINGS:Compared with study of the previous day, postsurgical changes in the heartand mediastinum with cardiomegaly are stable. [place] catheter remains in place. Left thoracostomy tube remains in place. No pneumothorax. Pulmonary vascular congestion with interstitial lung disease remain prominent. Impression: Persistent prominent interstitial lung disease with failure. Electronically signed by: Deacon Cummings M.D. XR Chest 1 View - Portable - in AM Result Date: 05/06/2021 Narrative: EXAMINATION: XR CHEST 1 VIEW DATE: 05/06/2021 4:05 AM INDICATION: Cardiac surgery. COMPARISON: 05/05/2021. FINDINGS: No pneumothorax or pleural effusion. Similar-appearing pulmonary vascular congestion and interstitial opacities most notable in the bilateral upper lobes consistent with pulmonary edema. Pulmonary catheter catheter, left thoracostomy tube, and mediastinal drain are appropriately position. Intra-aortic balloon pump is appropriately positioned. Interval removal of endotracheal tube. Impression: 1. Interval removal of endotracheal tube. Remaining tubes and lines are appropriately positioned. 2. Similar-appearing cardiomegaly, pulmonary vascular congestion, and prominent bilateralinterstitial markings suggestive of interstitial pulmonary edema. Electronically signed by: Richard Zhao II, D.O. XR Chest 1 View - Portable - in AM Result Date: 05/05/2021 Narrative: EXAMINATION: XR CHEST 1 VIEW DATE: 05/05/2021 4:15 AM HISTORY: 60-year-old man cardiac surgery follow-up FINDINGS:Compared with the study of the prior day, tubes and catheters remain satisfactorily positioned. Worsening pulmonary vascular congestive changes are seen. Cardiomegaly with postsurgical changes stable. No pneumothorax. Impression: Increasing failure. Electronically signed by: Deacon Cummings M.D. XR Chest 1 Vw Portable Result Date: 05/05/2021 Narrative: EXAMINATION: XR CHEST 1 VIEW DATE: 05/04/2021 8:40 PM HISTORY: 60-year-old man coronary artery bypass follow-up FINDINGS:Compared with the study of earlier the same day, postsurgical changes now evident within the heart and mediastinum with cardiomegaly. Interval placement of endotracheal tube, nasogastric tube, [place]-Radha catheter, left thoracostomy tube and mediastinal drain all in satisfactory position. No pneumothorax. Interstitial lung disease with mild pulmonary vascular congestive changes. Aortic balloon pump is no longer seen. Impression: Tube placements with postsurgical changes with cardiomegaly with interstitial lung disease and mild failure with no pneumothorax. Electronically signed by: Deacon Cummings M.D. XR Chest 1 Vw Portable Result Date: 05/04/2021 Narrative: EXAMINATION: XR CHEST 1 VIEW DATE: 05/04/2021 9:05 AM HISTORY: Coronary artery disease FINDINGS:Comparison is made with study of 2 days earlier. Cardiomegaly, COPD with interstitial lung disease stable. Mild failure. Aortic balloon pump stable in position at the proximal descending aorta. No pneumothorax. No new infiltrates. Impression: Stable appearance. COPD cardiomegaly, with mild failure suspected. Electronically signed by: Deacon Cummings M.D. XR Chest 1 Vw Portable Result Date: 05/02/2021 Narrative: EXAMINATION: XR CHEST 1 VIEW DATE: 05/02/2021 5:15 AM INDICATION: Intra-aortic balloon pump. COMPARISON: 05/01/2021. FINDINGS: Appropriately positioned intra-aortic balloon pump appears unchanged. No pneumothorax or pleural effusion. Mixed reticular and alveolar opacities demonstrated inall lung lobes appear most significant in the upper lobes and perihilar regions, unchanged. Impression: 1. Appropriately positioned intra-aortic balloon pump. 2. Similar mixed reticular and alveolar opacities most notable in the bilateral upper lobes and perihilar region. Electronically signed by: Richard Lopez II, D.O. XR Chest 1 Vw Portable Result Date: 05/02/2021 Narrative: EXAMINATION: XR CHEST 1 VIEW DATE: 05/01/2021 8:15 PM INDICATION: Hypoxia. COMPARISON: None. FINDINGS: No pneumothorax. No pleural effusion. Mixed reticular and alveolar opacities are demonstrated in all lung lobes but demonstrate an upper lobe and perihilar predominance. Findings may represent pulmonary edema on background of centrilobular emphysematous changes. Underlying infectious process not entirely excludable. Cardiac mediastinal silhouette is stable in appearance. No acute osseous abnormality. Impression: Mixed reticular and alveolar opacities are demonstrated in all lung lobes but demonstrate an upper lobe and perihilar predominance. Findings may represent pulmonary edema on background ofcentrilobular emphysematous changes. Electronically signed by: Richard Lopez II, D.O. Transthoracic Echo (TTE) Limited Result Date: 05/07/2021 Narrative: [place] [address] Limited Echocardiogram Report Patient Name: DEEPAK ALVARADO : 1960 StudyDate: 05/07/2021 12:16:52 PM Gender: M Tech: SR Location: [id number] Ref.Provider: RHINA GRANADOS Height(Cm): 175 BSA: 2.1 Weight(Kg): 91 Heart Rate: 82 BP: 127/44 Quality: Good Order Provider: Dr. Sutton Procedures: Echocardiographic Report: Limited transthoracic echocardiogram with 2D and M-Mode. Measurements: 2D/M Mode Measurement Value Normal Range LVIDd 2D 3.43 [ 4.20 -5.90 ] cm LVIDs 2D 2.59 [ 2.30 - 3.90 ] cm LVPWd 2D 1.01 [ 0.60 - 1.00 ] cm IVSd 2D 0.71 [ 0.60 - 0.90 ] cm Findings: Left Ventricle: Reduced left ventricular cavity size. Mild global left ventricular systolic dysfunction. Ejection fraction is measured at 42 %. These segments of the LV are hypokinetic: apical anterior segment. Pericardium: Trivial pericardial effusion. No echocardiographic evidence to suggest pericardial tamponade. Conclusions: Reduced left ventricular cavity size. Mild globalleft ventricular systolic dysfunction. Ejection fraction is measured at 42 %. These segments of theLV are hypokinetic: apical anterior segment. Trivial pericardial effusion. No echocardiographic evidence to suggest pericardial tamponade. Electronically Signed By: Gianni Francois MD, [facility] 2021-05-07 12:54:09 STAFF FORESTER Transthoracic Echo Complete W Doppler/CF Result Date: 05/02/2021 Narrative: [place] [address] Echocardiogram Report Patient Name: DEEPAK ALVARADO W : 1960 Study Date: 05/02/2021 8:50:02 AM Gender: M Tech: Location: [id number] Ref Provider: NALINI CLAYTONHeight(Cm): 175 BSA: 2.11 Weight(Kg): 92 Heart Rate: 89 BP: 102/52 Quality: Good Order Provider: NALINI CLAYTON PROCEDURES: Echocardiographic Report: Transthoracic echocardiogram with complete 2D, M-Mode, and color Doppler examination. INDICATIONS: Free Text. Measurements: 2D/M Mode DopplerMeasurement Value Normal Range Measurement Value Normal Range EF Teich 2D 30.0 [ 55.0 - 70.0 ] percent CHRISTINA Vmax 2.04 [ 2.00 - 4.00 ] cm2 EF Mod 4C 42.2 [ 55.0 - 70.0 ] percent AV Mean PG 5 [ 2 - 4 ] mmHg LVIDd 2D 4.54 [ 4.20 - 5.90 ] cm AV Peak Ramesh 1.54 [ 1.00 - 1.70 ] m/s LVIDs 2D 3.91 [ 2.30 - 3.90 ] cm AV VTI 26.93 cm LVPWd 2D 0.92 [ 0.60 - 1.00 ] cm LVOT Diam 2.20 [ 1.70 - 2.10 ] cm IVSd 2D 0.76 [ 0.60 - 0.90 ] cm LVOT Peak Ramesh 0.83 [ 0.70 - 1.10 ] m/s LA Dimension MM 5.08 [ 3.00 - 4.00 ] cm LVOT VTI 13.82 [ 20.00 - 30.00 ] cm AoR Diam MM 4.12 [ 2.60 - 3.70 ] cm MV E Peak Ramesh 0.85 [ 0.60 - 1.30 ] m/s LA Volume Index 20.83 [ 16.00 - 28.00 ] cc/m2 MV A Peak Ramesh 1.14 [ 1.00 - 1.20 ] m/s ACS MM 1.91 [ 1.50 - 2.60 ] cm MV Mean PG 1 [ <= 5 ] mmHg MV PHT 43 [ 20 - 100 ] msec MVA 2.20 MV Decel Time 137 [ 104 - 258 ] msec PV Peak Ramesh 1.10 [ 0.40 - 0.80 ] m/s TR Peak Ramesh 1.32 [ 1.00 - 2.80 ] m/s TR Peak PG 7 mmHg RVSP 16.93 [ 10.00 - 36.00 ] mmHg E' 0.06 E/E' 14.00 Measurement Value Normal Range Measurement Value Normal Range 2D/M Mode Doppler - FINDINGS: Atrial Septum: Normal atrial septum. Left Ventricle: Normal left ventricular size. Left ventricle not well visualized. There is severe hypokinesis of the mid anteroseptal, anterior, and apical mancilla. Normal left ventricular wall thickness. Impaired diastolic relaxation Grade I. Ejection fraction is visually estimated at 40 %. Left Atrium: The left atrium is normal in size. Right Ventricle: Normal right ventricular size. Normal right ventricular systolic function. Right Atrium: The right atrium is normal in size. Aortic Valve: Normal structure of the aortic valve. No evidence of hemodynamically significant aortic stenosis by Doppler. No aortic regurgitation. Mitral Valve: Normal structure of the mitral valve. Trivial regurgitation of the mitral valve. Pulmonic Valve: Pulmonic valve not well visualized. Trivial regurg itation in the pulmonic valve. Tricuspid Valve: Normal structure of the tricuspid valve. Trivial regurgitation in the tricuspid valve. Pericardium: Normal pericardium with no significant pericardial effusion. Aorta: Normal aortic root. IVC: Normal size and normal respiratory collapse consistent with normal right atrial pressure (<5 mmHg). CONCLUSIONS: Technically difficult study with limited views. Normal left ventricular size. Left ventricle not well visualized. There is severe hypokinesis of the mid anteroseptal, anterior, and apical mancilla. Normal left ventricular wall thickness. Impaired diastolic relaxation Grade I. Ejection fraction is visually estimated at 40 %. Normal right ventricular size. Normal right ventricular systolic function. Normal structure of the mitral valve. Trivial regurgitation of the mitral valve. Normal structure of the tricuspid valve. Trivial regurgitation in the tricuspid valve. Electronically Signed By: Rylee Brito DO, FACJustyna, FAISAL ESPARZA 2021-05-02 14:07:25 STAFF FORESTER CC: CC: CC: ASSESSMENT/PLAN Hyponatremia from SIADH and possibly from zaroxylyn use. Work up for hyponatremia ongoing. PO FR. DC Zaroxylyn. No normotonic fluids yet. Urine lytes and osm. If in clinical fluid overload, can use tolvaptan. Renal fn is mildly worse but acceptable. Na better with loop diuresis, will continue. ?? Recent bladder tumor removal with hematuria. ?? -??Urology is following.H/H stable -Cysto vs conservative tx. -Voiding trial, hematuria has stopped. -Epistaxis Use nasal pillows. -CHF with decompensation Continue diuresis. RHC tomorrow. ?? Hypokalemia from diuresis. Replace PRN. ?? 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 ?? Syncopal episode -(+) orthostasis -receiving albumin -IV lasix was discontinued. ??There is a 1x order for zaroxolyn 10mg this am- recommend holding fornow. ??D/w RN ?? Coronary artery disease -s/p CABG post STEMI -??underwent four-vessel bypass ??MAE to the LAD, sequential saphenous vein graft to diagonal and obtuse marginal and a vein graft to the PDA. -s/p??low dose dobutamine -paced rhythm -??IV??diuretics??discontinued d/t syncopal episode today (see above) ?? Moderate LV dysfunction -s/p IV??lasix??and??low dose??dobutamine -Beta blockers, ??[place] once off dobutamine-would hold off adding given syncopal episode this am -repeat ECHO 05/07 EF 42% (see above) ?Nonsustained ventricular tachycardia -no recurrence of VT -K 3.7, Mg??2.0. ??Supplement to keep K >/= 4.0, Mg >/= 2.0 ?Diabetes mellitus -?on lantus and SSI ?? COPD: ?? -on?O2 NC??4L (dried blood to L nare humidified o2 ordered) ?? Dyslipidemia -?Continue atorvastatin. ?PAD -?Stable ? Anemia -Hb??11.4 (10.5)??(8.6) -monitor ?? I can be reached at [phone] with any concerns. Thank you Rhina Granados MD for the consult. Yves Weinberg MD [employer] [phone] F FORESTER * Elena Kelly NP - 05/18/2021 7:00 PM CST Images from the original note were not included. Critical Care Medicine Daily Progress Team: [facility] PM Subjective Patient is a 60 y.o. y/o male admitted on 05/01/2021 5:20 PM with the following indication(s) for ICU care hypoxemic respiratory failure, pulmonary edema, hypokalemia, shock Interval History: - Sating 83% on 8 L/NC -> increased to 15 L/NC - ABG -> PaO2 58 - BiPAP overnight for continued hypoxia - Anion gap -> BHO negative, lactate negative - C/f covid given negative V/Q scan and continued hypoxia -> D. Dimer slightly elevated but not enough to be concerned and has negative V/Q scan, TTE without evidence of RV strain, HFP negative - Lasix gtt to daily dosing 0130: Episode of Afib with RVR up to 150's, self resolved. BMP and lytes WNL. HPI (05/17) 60M smoker hx copd, obesity, pvd, htn, hld, dm2 & CAD s/p multiple LAD stents who p/w anterior STEMI after bladder procedure on 04/29. [facility] was [facility] where they found in-stent thrombosis and an angioplasty was performed but stent could not be placed. A balloon pump was placed and the patient was transferred to the CVU. CT-surgery was consulted for CABG. The patie nt underwent a 4 vessel cabg on 05/04 w/ Dr. Granados (MAE->LAD, Saph vein->diag & obtuse, Saph->PDA). He developed rebleeding from his bladder tumor and this was adressed by urology. Heself extubated the next day after his CABG. His osorio was removed yesterday and he is currently post op day 11 from the CABG. He has been getting diuresed on the floor but has unfortunately had increasing oxygen requirement for the last 24 hours despite diuresis. He is currently on a non-rebreatherand being transferred to the ICU. Hospital Course 04/29 Cystoscopy at [facility] 04/30 STEMI, [facility] -> instent thrombosis, angioplasty, IABP, transfer to [facility] 05/04/21: Increased blood clot from osorio and obstruction with pain. 05/05/21: Brief asystole o/n w turning. Stable after. Self extubated in AM. 05/06/21: NAEON. Maintained on CPAP and optiflow. 05/07/21: NAEON. Up in chair at time of exam. TTF 05/10 near syncopal episode 05/14 cystoscopy with clot removal and fulguration of bleeding 05/17 readmit to ICU with pulmonary edema, lasix drip 05/18 Nasal cannula, on/off pressors, Negative VQ, ACTH Stim unremarkable Scheduled Medications: albumin, , , aspirin, 81 mg, oral, Daily atorvastatin, 80 mg, oral, Nightly docusate sodium, 100 mg, oral, BID enoxaparin, 40 mg, subcutaneous, Daily-2100 [Held by Provider] fludrocortisone, 0.1 mg, oral, Daily furosemide, 40 mg, oral, Daily insulin glargine, 8 Units, subcutaneous, QAM insulin lispro, 0-12 Units, subcutaneous, 5x daily (with meals, nightly, & 0200) metOLazone, 10 mg, oral, BID DIURETIC [Held by Provider] metoprolol tartrate, 12.5 mg, oral, BID midodrine, 15 mg, oral, Q6H pantoprazole DR, 40 mg, oral, Daily potassium chloride ER, 40 mEq, oral, BID QUEtiapine, 25 mg, oral, Nightly sodium chloride 0.9%, 0.5-20 mL, intra-catheter, Q8H LEAH tamsulosin, 0.4 mg, oral, Daily with dinner Continuous Medications: norepinephrine, 0-2 mcg/kg/min, Last Rate: 0.01 mcg/kg/min (05/18/21 2305) PRN Medications: ??? acetaminophen ? ? al & mag hydroxide lpbnbouzwtt-fsbidbyaznzsmia-rnvffxlem-nystatin ??? albuterol ??? dextrose OR dextrose ??? glucagon ??? ondansetron ??? polyethylene glycol Objective Vitals: Most Recent: Vitals: 05/18/211999 BP: Pulse: Resp: Temp: 36.7 ??C (98 ??F) SpO2: 24hr Min/Max: Temp Min: 36.6 ??C (97.8 ??F) Max: 36.8 ??C (98.2 ??F) Pulse Min: 86 Max: 116 BP Min: 76/53 Max: 130/68 Resp Min: 12 Max: 36 SpO2 Min: 69 % Max: 97 % LDA: Introducer 05/04/21 Right Internal jugular (Active) Placement Date/Time: 05/04/21 (c) 1441 Hand Hygiene Performed: Yes Orientation: Right Location: Internal jugular Description (optional): multi-lumen access catheter (MAC) Number of days: 12 Hemodynamic parameters for last 24 hours: CVP: [0 mmHg-22 mmHg] 10 mmHg I/O: Date 05/18/21 0700 - 05/19/21 0659 05/19/21 07 - 05/20/21 0659 Shift [id number] 24 Hour Total 5831-3198 7215-5492 24 Hour Total INTAKE P.O. 180 360 540 I.V.(mL/kg) 22(0.3) 225(2.8) 247(3.1) IV Piggyback 250 250 Shift Total(mL/kg) 452(5.7) 585(7.4) 1037(13.1) OUTPUT Urine(mL/kg/hr) 200(0.2) 50 250 Shift Total(mL/kg) 200(2.5) 50(0.6) 250(3.2) NET 252 535 787 Weight (kg) 79.1 79 79 79 79 79 Physical Exam: Gen:Sittin in chair, ill appearing, NAD HEENT: NC/AT, PERRLA, EOMI Neck: Supple, Trachea Midline CV: NSR, S1 and S2, Distal pulses intact, Warm periphery, cap refill < 5 seconds Pulm: Diminished, on NC Abd: Soft, Nontender, Normoactive BS : Voiding Ext: No edema noted Derm: Warm, Dry, intact, surgical sites appropriately dress and C/D/I Neuro: Alert, Oriented, Moves all extremities Lab/Radiology/Diagnostic Review: Laboratory review: Lab results in the last 24 hours: Recent Results (from the past 24 hour(s)) POCT glucose Collection Time: 05/18/21 1:00 AM Result Value Ref Range Glucose, POC 111 70 - 199 mg/dL POCT glucose Collection Time: 05/18/21 2:03 AM Result Value Ref Range Glucose, POC 108 70 - 199 mg/dL Basic metabolic panel Collection Time: 05/18/21 2:04 AM Result Value Ref Range Sodium 132 (L) 135 - 145 mmol/L Potassium, pl 3.7 3.3 - 4.9 mmol/L Chloride 95 (L) 97 - 110 mmol/L CO2 22 22 - 32 mmol/L Anion gap 15 2 - 15 mmol/L BUN 44 (H) 8 - 25 mg/dL Creatinine 1.63 (H) 0.80 - 1.30 mg/dL Glucose 111 70 - 199 mg/dL Calcium 8.6 8.5 - 10.3 mg/dL Phosphorus Collection Time: 05/18/21 2:04 AM Result Value Ref Range Phosphorus, pl 4.6 (H) 2.3 - 4.5 mg/dL Magnesium Collection Time: 05/18/21 2:04 AM Result Value Ref Range Magnesium 2.7 (H) 1.4 - 2.5 mg/dL CBC without differential Collection Time: 05/18/21 2:04 AM Result Value Ref Range WBC 7.6 3.8 - 9.9 K/cumm Hgb 11.2 (L) 13.0 - 17.5 g/dL Hct 33.0 (L) 38.9 - 50.3 % Plt 278 150 - 400 K/cumm MPV 12.2 9.1 - 12.3 fL RBC 3.71 (L) 4.30 - 5.80 M/cumm MCV 88.9 81.3 - 96.4 fL MCH 30.2 27.1 - 33.3 pg MCHC 33.9 32.3 - 35.7 g/dL RDW CV 13.5 11.1 - 14.9 % RDW SD 44.2 35.7 - 48.1 fL NRBC abs 0.00 0.00 - 0.01 K/cumm eGFR Collection Time: 05/18/21 2:04 AM Result Value Ref Range eGFR 45 mL/min/1.73 m2 POCT glucose Collection Time: 05/18/21 3:01 AM Result Value Ref Range Glucose, POC 118 70 - 199 mg/dL POCT glucose Collection Time: 05/18/21 3:57 AM Result Value Ref Range Glucose, POC 140 70 - 199 mg/dL POCT glucose Collection Time: 05/18/21 4:58 AM Result Value Ref Range Glucose, POC 152 70 - 199 mg/dL POCT glucose Collection Time: 05/18/21 5:52 AM Result Value Ref Range Glucose, POC 140 70 - 199 mg/dL Basic metabolic panel Collection Time: 05/18/21 6:19 AM Result Value Ref Range Sodium 132 (L) 135 - 145 mmol/L Potassium, pl 3.1 (L) 3.3 - 4.9 mmol/L Chloride 95 (L) 97 - 110 mmol/L CO2 21 (L) 22 - 32 mmol/L Anion gap 16 (H) 2 - 15 mmol/L BUN 44 (H) 8 - 25 mg/dL Creatinine 1.38 (H) 0.80 - 1.30 mg/dL Glucose 145 70 - 199 mg/dL Calcium 8.1 (L) 8.5 - 10.3 mg/dL Pro B-type natriuretic peptide Collection Time: 05/18/21 6:19 AM Result Value Ref Range NT-proBNP 2,488 (H) <=300 pg/mL eGFR Collection Time: 05/18/21 6:19 AM Result Value Ref Range eGFR 56 mL/min/1.73 m2 POCT glucose Collection Time: 05/18/21 6:56 AM Result Value Ref Range Glucose, POC 131 70 - 199 mg/dL POCT glucose Collection Time: 05/18/21 8:01 AM Result Value Ref Range Glucose, POC 147 70 - 199 mg/dL POCT glucose Collection Time: 05/18/21 9:04 AM Result Value Ref Range Glucose, POC 167 70 - 199 mg/dL POCT glucose Collection Time: 05/18/21 11:06 AM Result Value Ref Range Glucose, POC 209 (H) 70 - 199 mg/dL POCT glucose Collection Time: 05/18/21 12:15 PM Result Value Ref Range Glucose, POC 230 (H) 70 - 199 mg/dL Basic metabolic panel Collection Time: 05/18/21 12:36 PM Result Value Ref Range Sodium 130 (L) 135 - 145 mmol/L Potassium, pl 3.7 3.3 - 4.9 mmol/L Chloride 93 (L) 97 - 110 mmol/L CO2 20 (L) 22 - 32 mmol/L Anion gap 17 (H) 2 - 15 mmol/L BUN 48 (H) 8 - 25 mg/dL Creatinine 1.73 (H) 0.80 - 1.30 mg/dL Glucose 239 (H) 70 - 199 mg/dL Calcium 8.3 (L) 8.5 - 10.3 mg/dL Cortisol Collection Time: 05/18/21 12:36 PM Result Value Ref Range Cortisol 25.5 (H) 4.8 - 19.5 mcg/dl eGFR Collection Time: 05/18/21 12:36 PM Result Value Ref Range eGFR 42 mL/min/1.73 m2 POCT glucose Collection Time: 05/18/21 1:21 PM Result Value Ref Range Glucose, POC 197 70 - 199 mg/dL Cortisol Collection Time: 05/18/21 1:51 PM Result Value Ref Range Cortisol 53.1 (H) 4.8 - 19.5 mcg/dl Cortisol Collection Time: 05/18/21 2:32 PM Result Value Ref Range Cortisol >63.0 (H) 4.8 - 19.5 mcg/dl POCT glucose Collection Time: 05/18/21 5:22 PM Result Value Ref Range Glucose, POC 141 70 - 199 mg/dL Basic metabolic panel Collection Time: 05/18/21 5:30 PM Result Value Ref Range Sodium 132 (L) 135 - 145 mmol/L Potassium, pl 4.3 3.3 - 4.9 mmol/L Chloride 94 (L) 97 - 110 mmol/L CO2 21 (L) 22 - 32 mmol/L Anion gap 17 (H) 2 - 15 mmol/L BUN 52 (H) 8 - 25 mg/dL Creatinine 1.82 (H) 0.80 - 1.30 mg/dL Glucose 143 70 - 199 mg/dL Calcium 8.3 (L) 8.5 - 10.3 mg/dL Basic metabolic panel Collection Time: 05/18/21 5:30 PM Result Value Ref Range Sodium 133 (L) 135 - 145 mmol/L Potassium, pl 4.4 3.3 - 4.9 mmol/L Chloride 95 (L) 97 - 110 mmol/L CO2 22 22 - 32 mmol/L Anion gap 16 (H) 2 - 15 mmol/L BUN 51 (H) 8 - 25 mg/dL Creatinine 1.85 (H) 0.80 - 1.30 mg/dL Glucose 143 70 - 199 mg/dL Calcium 8.3 (L) 8.5 - 10.3 mg/dL Magnesium Collection Time: 05/18/21 5:30 PM Result Value Ref Range Magnesium 2.5 1.4 - 2.5 mg/dL TSH reflex to free T4 Collection Time: 05/18/21 5:30 PM Result Value Ref Range TSH 1.46 0.30 - 4.20 mcIUnit/mL eGFR Collection Time: 05/18/21 5:30 PM Result Value Ref Range eGFR 39 mL/min/1.73 m2 eGFR Collection Time: 05/18/21 5:30 PM Result Value Ref Range eGFR 40 mL/min/1.73 m2 Blood gas, arterial Collection Time: 05/18/21 7:53 PM Result Value Ref Range pH, Art 7.45 7.35 - 7.45 PCO2, Arterial 32 (L) 35 - 45 mmHg PO2, Arterial 58 (L) 83 - 108 mmHg HCO3 Art (Calculated) 23 20 - 30 mmol/L BE, art -2 mmol/L O2 Sat Art (Measured) 89 (L) 90 - 95 % POCT glucose Collection Time: 05/18/21 8:00 PM Result Value Ref Range Glucose, POC 200 (H) 70 - 199 mg/dL Lactate Collection Time: 05/18/21 9:37 PM Result Value Ref Range Lactate 0.9 0.7 - 2.0 mmol/L Beta-hydroxybutyrate Collection Time: 05/18/21 9:37 PM Result Value Ref Range Beta-Hydroxybutyrate 0.4 <=0.5 mmol/L Hepatic function panel Collection Time: 05/18/21 9:37 PM Result Value Ref Range Bilirubin, total 0.6 0.1 - 1.2 mg/dL Bilirubin, direct 0.2 0.1 - 0.3 mg/dL Protein, pl 7.1 6.5 - 8.5 g/dL Albumin 3.6 3.5 - 5.0 g/dL Alk phos 86 40 - 130 Units/L ALT 18 7 - 55 Units/L AST 60 (H) 10 - 50 Units/L D-dimer, quantitative Collection Time: 05/18/21 10:01 PM Result Value Ref Range D-Dimer 1,998 (H) <=499 ng/mL FEU NM Pulmonary Perfusion Imaging Result Date: 05/18/2021 Findings described above are consistent with low probability of pulmonary embolus. The patient has mild vascular congestion. Electronically signed by: Elvira Blackman M.D. XR Chest 1 View Result Date: 05/18/2021 Postoperative and chronic changes. Electronically signed by: Deandre Lomeli M.D. XR Chest 1 View Result Date: 05/17/2021 Mild vascular congestion. Electronically signed by: Elvira Blackman M.D. XR Chest 1 Vw Portable Result Date: 05/17/2021 No change from previous. Electronically signed by: Humphrey Mojica M.D. XR Chest 1 Vw Portable Result Date: 05/17/2021 1. Status post median sternotomy. 2. Right jugular venous catheter in place. 3. Pulmonary vascular congestion. 4. Mild infiltrate in the left lower lobe and possible small left pleural effusion. Electronically signed by: Humphrey Mojica M.D. Plan: Neuro: #Acute pain - Tylenol #Insomnia - Seroquel CV: #Severe multivessel CAD s/p CABG #STEMI #HFrEF, chronic - S/p CABG by MD Granados - CCL (04/30) -> in-stent restenosis, unsuccessful angioplasty, IABP placed - ASA/Atorvastatin, holding plavix - Unable to tolerate ACEi or BB at this time - Cardiology following - CTS following - Lasix/Metolazone - TTE (05/17) -> EF 35-40% Pulmonary: #Acute hypoxic respiratory failure 2/2 #Pulmonary edema - Increasing O2 overnight -> up to 15L/NC, NPPV at night - V/Q (05/18) -> low probability for PE - Aggressive pulmonary hygiene, IS, OOBTC in am - Lasix/Metolazone - Maintain sats> 92% - CXR with continued edema and possible infiltrate - Zosyn completed GI: Diet: Heart healthy PUD PPx: Pantoprazole Bowel regimen: Docusate Endo: #Hyperglycemia, likely 2/2 stress response - Glycemic control - Lantus/SSI - Frequent accuchecks - Endocrine following Renal: #ISRRAEL - BUN/Cr 52/1.82 - Lasix/Metolazone - UOP 0.2 ml/kg/hr - FBG net negative - trend renal function, avoid nephrotoxins, renal dose medications - optimize electrolytes with caution to renal function -goal K ~4, Mg > 2.2, phos > 3, iCAL > 4.5 -provide supplement as needed -AM BMP and electrolytes check #Hematuria 2/2 #Bladder tumor - (05/14) Cystoscopy for clot evacuation and cessation of bleeding sites - Osorio removed that night - Per urology, do not place osorio - Bladder scan - Urology following - Flomax #High anion gap metabolic acidosis - Likely related to hypoxemia - Lactate negative - BHO negative - ABG WNL - Will do BiPAP tonight - Repeat BMP in am Heme: #ABLA 2/2 surgery - No active signs of bleeding - Transfuse for hgb < 8 - CBC in am DVT PPX: SCD's/Lovenox ID: - WBC: 7.6 - Tmax: 36.8 - CBC in am - CXR in am for evaluation of lung escamilla - Trend WBC and fever curve ICU standards of care: Physical therapy/Activity: PT/OT Access: RIJ introducer (05/04) Goals of care: Full code [facility] Assessment and plan has been reviewed with attending, MD Sushila Kelly, AGAP- [phone], [place] 1 Critical Care Medicine [facility] Cosigned by Jose Conti MD at 05/19/2021 6:26 AM STAFF FORESTER F FORESTER F FORESTER * Laly Lopes MD - 05/18/2021 2:19 PM CST Cardiothoracic Surgery Progress Note Deepak Alvarado 1960 [facility] DAY#17 10 Days Post-Op s/p: Procedures: * Coronary artery bypass grafting x4, placement of left QUINN to the LAD, saphenous vein graft to thediagonal artery and obtuse marginal in a sequential fashion, saphenous vein graft to the PDA- [place] Subjective: Remains on lasix gtt with slight new ISRRAEL. TTE yesterday with EF 37%. OBJECTIVE: Vitals: Temp: [36.2 ??C (97.1 ??F)-36.7 ??C (98.1 ??F)] 36.7 ??C (98 ??F) Pulse: [83-116] 108 BP: (64-107)/(34-74) 93/57 Resp: [0-36] 26 SpO2: [85 %-98 %] 92 % Wt Readings from Last 3 Encounters: 05/18/21 79.1 kg (174 lb 6.1 oz) 08/27/13 114.3 kg (252 lb) 10/19/12 111.6 kg (246 lb) I/O last 2 completed shifts: In: 2215 [P.O.:1620; I.V.:595] Out: 2295 [Urine:2295] -1350 for 24, -35496 for stay Physical Exam HENT: Mouth/Throat: Mouth: Mucous membranes are moist. Eyes: Pupils: Pupils are equal, round, and reactive to light. Cardiovascular: Rate and Rhythm: Normal rate and regular rhythm. Pulses: Normal pulses. Heart sounds: Normal heart sounds. Comments: SR Pulmonary: Effort: Pulmonary effort is normal. Breath sounds: Normal breath sounds. Genitourinary: Comments: Urine clear Musculoskeletal: General: Normal range of motion. Right lower leg: No edema. Left lower leg: No edema. Skin: Comments: Sternum covered with silver Saph sites steristipped HOME CARE PROVIDER Neurological: General: No focal deficit present. Mental Status: He is alert and oriented to person, place, and time. Psychiatric: Behavior: Behavior normal. Access: central line Recent Labs Lab Units 05/18/21 0204 05/17/21 0333 05/16/21 0542 WBC K/cumm 7.6 8.7 6.2 HEMOGLOBIN g/dL 11.2* 11.3* 9.9* HEMATOCRIT % 33.0* 33.8* 30.8* PLATELETS K/cumm 278 267 241 Recent Labs Lab Units 05/18/21 1236 05/18/21 0619 05/18/21 0204 SODIUM mmol/L 130* 132* 132* POTASSIUM PLASMA mmol/L 3.7 3.1* 3.7 CHLORIDE mmol/L 93* 95* 95* CO2 mmol/L 20* 21* 22 BUN SERUM mg/dL 48* 44* 44* CREATININE mg/dL 1.73* 1.38* 1.63* CALCIUM mg/dL 8.3* 8.1* 8.6 Recent Labs Lab Units 05/12/21 1226 PROTIME (PT) sec 14.0* INR 1.3* APTT sec 29 Recent Labs Lab Units 05/17/21 0220 PH ART 7.50* PCO2 ART mmHg 27* PO2 ART mmHg 72* BASE EXC ART mmol/L -2 Imaging: Today's CXR bilateral pulmonary edema, improved from yesterday Assessment and Plan: 60 y.o. male 10 Days Post-Op s/p Coronary artery bypass grafting x4, placement of left QUINN to the LAD, saphenous vein graft to the diagonal artery and obtuse marginal in a sequential fashion, saphenous vein graft to the PDA 05/04/[address] Granados Neuro: Ax0x4, Continue Seroquel as scheduled. CVS: TTE with EF 37%. Pulm: On HFNC, Hold diuresis today for ISRRAEL, significantly improved CXR, completed 7 days zosyn. V/Qscan today with low probability PE GI: Heart Healthy DM2 Diet-- +flatus -BM Renal: Lasix 40 TID today, 10 metolazone ID: Completed Zosyn for total 7 days , WBC down trending D/L/T: D/c wires, DC central line : voiding spont Prophylaxis: SCDs, Lovenox Endo. BS elevated, endocrine for management Dispo: Transfer to floor Laly Lopes MD Cardiothoracic Surgery [facility] Cosigned by Rhina Granados MD at 05/19/2021 10:12 AM STAFF FORESTER F FORESTER F FORESTER F FORESTER * Oscar Gonzalez MD - 05/18/2021 11:02 AM CST Hospitalist Progress Note Name: Deepak Alvarado Admission Date: 05/01/2021 Today's Date: 05/18/2021 Subjective: Pt seen and examined Clinical course: Overall pt condition has improved. Still on 4L per NC today 05/16: feels ok today, on 5L per NC 05/17: transferred to ICU for worsening respiratory distress requiring more O2 05/18/21 Lying in bed To have Picc line placed IV Levophed and Insulin in situ Objective: Vitals: 05/18/21 0950 05/18/21 0955 05/18/21 1000 05/18/21 1005 BP: 91/69 93/57 Pulse: 114 111 110 108 Resp: 17 23 15 26 Temp: TempSrc: SpO2: Weight: Height: Wt Readings from Last 3 Encounters: 05/18/21 79.1 kg (174 lb 6.1 oz) 08/27/13 114.3 kg (252 lb) 10/19/12 111.6 kg (246 lb) I/O last 3 completed shifts: In: 2495 [P.O.:1710; I.V.:785] Out: 3795 [Urine:3795] No intake/output data recorded. Scheduled Meds Current Facility-Administered Medications Medication Dose Route Frequency Provider Last Rate Last Admin ??? acetaminophen (TYLENOL) tablet 650 mg 650 mg oral Q6H PRN Eleonora Duarte NP 650 mg at 05/18/21 1059 ? ? al & mag hydroxide fywnqoshtbq-fnlkyvmblcelahi-yzonfayjp-nystatin (MAGIC MOUTHWASH) suspension 1-1-1-1 20 mL swish & spit Q4H PRN Elena Kelly NP ??? albuterol 2.5 mg /3 mL (0.083 %) nebulizer solution 2.5 mg 2.5 mg nebulization Q4H PRN (RT) Ralf Tomlinson MD 2.5 mg at 05/17/21 0224 ??? aspirin enteric coated tablet 81 mg 81 mg oral Daily Varsha Crowder NP 81 mg at 05/18/21 0851 ??? atorvastatin (LIPITOR) tablet 80 mg 80 mg oral Nightly Rhina Granados MD 80 mg at 05/17/21 2018 ??? cosyntropin (ACTH,CORTISOL) injection 250 mcg 250 mcg intravenous Once Caleb Toth PA ??? dextrose oral liquid liquid 15 g 15 g oral Q15 Min PRN Anibal Lara MD Or ??? dextrose (D10W) 10% bolus 250 mL 250 mL intravenous Q15 Min PRN Anibal Mon MD ??? docusate sodium (COLACE) capsule 100 mg 100 mg oral BID Rhina Granados MD 100 mg at 05/18/21 0851 ??? enoxaparin (LOVENOX) syringe 40 mg 40 mg subcutaneous Daily-2100 Rhina Granados MD 40 mg at107/17/20 2019 ??? [Held by Provider] fludrocortisone tablet 0.1 mg 0.1 mg oral Daily Lester Batista MD ??? [START ON 05/19/2021] furosemide (LASIX) tablet 40 mg 40 mg oral Daily Rhina Granados MD ??? glucagon injection 1 mg 1 mg intramuscular Q30 Min PRN Anibal Lara MD ??? insulin glargine (LANTUS, SEMGLEE) 100 unit/mL injection 8 Units 8 Units subcutaneous QAM Abelino Leblanc MD 8 Units at 05/18/21 1000 ??? insulin lispro (HumaLOG, ADMELOG) 100 unit/mL injection 0-12 Units 0-12 Units subcutaneous 5x daily (with meals, nightly, & 0200) Abelino Leblanc MD ??? insulin regular bolus from bag 1-10 Units 1-10 Units intravenous PRN Sixto Fish MD ??? metOLazone (ZAROXOLYN) tablet 10 mg 10 mg oral BID DIURETIC Jose Conti MD 10 mg at 452 ??? [Held by Provider] metoprolol tartrate (LOPRESSOR) immediate release tablet 12.5 mg 12.5 mg oral BID Eleonora Duarte NP 12.5 mg at 05/16/21 0909 ??? midodrine (PROAMATINE) tablet 10 mg 10 mg oral Q6H Rhina Granados MD 10 mg at 05/18/21 0851 ??? ondansetron (ZOFRAN) injection 4 mg 4 mg intravenous Q6H PRN Rhina Granados MD ??? pantoprazole DR (PROTONIX) extended release tablet 40 mg 40 mg oral Daily Rhina Granados MD40 mg at 05/18/21 0851 ??? polyethylene glycol (MIRALAX) packet 17 g 17 g oral Daily PRN Rhina Granados MD ??? potassium chloride ER (KLOR-CON) extended release tablet 40 mEq 40 mEq oral BID Moreno Whiting MD 40 mEq at 05/18/21 0851 ??? QUEtiapine (SEROquel) tablet 25 mg 25 mg oral Nightly Rhina Granados MD 25 mg at 05/17/21 2019 ??? sodium chloride 0.9% flush 0.5-20 mL 0.5-20 mL intra-catheter Q8H [facility] Rhina Granados MD 10 mL at 05/18/21 0507 ??? tamsulosin (FLOMAX) extended release capsule 0.4 mg 0.4 mg oral Daily with dinner Elena Kelly NP 0.4 mg at 05/18/21 0246 ??? acetaminophen ? ? al & mag hydroxide xozwjvrbror-xdibpwifzzngtyz-ucyqjsobo-nystatin ??? albuterol ??? dextrose OR dextrose ??? glucagon ??? insulin regular ??? ondansetron ??? polyethylene glycol Physical Exam: General: alert, cooperative, no distress, appears stated age 8 Liters of Oxygen by Nasal Cannula HEENT: Head:normacephalic, Eyes: Perrla, EOMI bilaterally, nasal and oral mucosal pink and moist Heart: normal rate, regular rhythm, normal S1, S2, no murmurs, rubs, clicks or gallops Median Sternotomy In situ Lungs: clear to auscultation, no wheezes or rales and unlabored breathing Abdomen: soft, nontender, nondistended, no masses or organomegaly Extremities: peripheral pulses normal, no pedal edema, no clubbing or cyanosis Neuro: alert, oriented x 3, no defects noted in general exam. Lab Data Laboratory review: Chemistry CMP: Lab Results Component Value Date ALBUMIN 3.5 05/17/2021 BUNSER 44 (H) 05/18/2021 CALCIUM 8.1 (L) 05/18/2021 CO2 21 (L) 05/18/2021 CHLORIDE 95 (L) 05/18/2021 CREATININE 1.38 (H) 05/18/2021 GLUCOSE 167 05/18/2021 GLUCOSE 145 05/18/2021 POTASSIUM 3.1 (L) 05/18/2021 SODIUM 132 (L) 05/18/2021 BILITOT 0.7 05/17/2021 PROT 7.3 05/17/2021 ALT 20 05/17/2021 AST 64 (H) 05/17/2021 ALKPHOS 94 05/17/2021 , CBC: Lab Results Component Value Date WBC 7.6 05/18/2021 RBC 3.71 (L) 05/18/2021 HGB 11.2 (L) 05/18/2021 HCT 33.0 (L) 05/18/2021 MCV 88.9 05/18/2021 MCH 30.2 05/18/2021 MCHC 33.9 05/18/2021 RDWCV 13.5 05/18/2021 RDWSD 44.2 05/18/2021 MPV 12.2 05/18/2021 NRBCABS 0.00 05/18/2021 , Coags: No results found for: PT, PTT, APTT, FFN, FIBRINOGEN, INR, ACTIVATEDCL, Lipids: No resultsfound for: CHOL, CHLPL, HDL, LDLCALC, TRIG, CHOLHDL, Cardiac Enzymes: No results found for: CKTOTAL, CKMB, CKMBINDEX, TROPONINT and POC Glucose: Lab Results Component Value Date GLUCOSE 167 05/18/2021 GLUCOSE 145 05/18/2021 Home Medications have been reviewed and updated on pt's list Assessment and Plan Acute resp failure - self ext 05/05/21 -Lung infiltrates - pulm vascular congestion versus pneumonia - changed to Zosyn due to worsening Leukocytosis -diuresis per ICU with Lasix gtt and Metolazone -pulmonology follows -today in the ICU, back on 4L per NC today ( was up to 15L at some point) Near syncope/Syncope episode, probable vaso vagal, monitor ?? Acute anterior STEMI with CAD , s/p PCI to LAD -s/p CABG x 4 05/04 given re thrombosis of existing stents -s/p IABP, removed 05/06 - ASA, ??statins, BBs, off Plavix ?? Post CABG cardiogenic shock, hypotensive again - s/p??Dobutamine gtt -back on Levophed ?? Ventricular fibrillation - briefly on 05/03 - treated with Amiodarone and Dobutamine gtt, off them ?? Gross Hematuria ?- in a pt with hx of ??cystoscopy, -clot evacuation and transurethral resection of bladder tumor at [facility] -s/p 20??German three way catheter, urine still bloody -holding Plavix and Lovenox -cysto 05/14 with clot evacuation and fulguration ? Type 2 diabetes.??- started on Insulin gtt ?? Acute blood loss anemia ; -s/p PRBC transfusions in ICU - monitor HH, today 9.9 ?? Mild hyponatremia, monitor ?? Hx of ??Tobacco use. ?? Vitamin-D deficiency.- stable DVT prophylaxis :Lovenox Pt will need continued inpatient management for the above medical issues. Code status: full Oscar Gonzalez MD Team Health Hospitalist 05/18/2021 11:02 AM F FORESTER * Janey CalebHEIDY Judge - 05/18/2021 10:31 AM CST Images from the original note were not included. Critical Care Medicine Daily Progress Team: Community AM Subjective Patient is a 60 y.o. y/o male admitted on 05/01/2021 5:20 PM with the following indication(s) for ICU care hypoxemic respiratory failure, pulmonary edema, hypokalemia, shock Interval History: - Sleepy today - NE off and on - Check ACTH Stim > Appropriate bump - Check TSH - Perfusion scan low probability - nasal cannula - ADAT - Insulin drip off per endo - Lasix drip to daily dosing HPI (05/17) 60M smoker hx copd, obesity, pvd, htn, hld, dm2 & CAD s/p multiple LAD stents who p/w anterior STEMI after bladder procedure on 04/29. [facility] was [facility] where they found in-stent thrombosis and an angioplasty was performed but stent could not be placed. A balloon pump was placed and the patient was transferred to the CVU. CT-surgery was consulted for CABG. The patie nt underwent a 4 vessel cabg on 05/04 w/ Dr. Granados (MAE->LAD, Saph vein->diag & obtuse, Saph->PDA). He developed rebleeding from his bladder tumor and this was adressed by urology. Heself extubated the next day after his CABG. His osorio was removed yesterday and he is currently post op day 11 from the CABG. He has been getting diuresed on the floor but has unfortunately had increasing oxygen requirement for the last 24 hours despite diuresis. He is currently on a non-rebreatherand being transferred to the ICU. Hospital Course 05/04: Increased blood clot from osorio and obstruction with pain. 05/05: Brief asystole o/n w turning. Stable after. Self extubated in AM. 05/06: NAEON. Maintained on CPAP and optiflow. 05/07: NAEON. Up in chair at time of exam. 05/08 - transfer to floor 05/17 - Readmit ICU hypoxic on pressors, lasix drip 05/18 - Nasal cannula, on/off pressors, Negative VQ, ACTH Stim unremarkable Scheduled Medications: albumin, 12.5 g, intravenous, Once albumin, , , aspirin, 81 mg, oral, Daily atorvastatin, 80 mg, oral, Nightly docusate sodium, 100 mg, oral, BID enoxaparin, 40 mg, subcutaneous, Daily-2100 [Held by Provider] fludrocortisone, 0.1 mg, oral, Daily [START ON 05/19/2021] furosemide, 40 mg, oral, Daily insulin glargine, 8 Units, subcutaneous, QAM insulin lispro, 0-12 Units, subcutaneous, 5x daily (with meals, nightly, & 0200) metOLazone, 10 mg, oral, BID DIURETIC [Held by Provider] metoprolol tartrate, 12.5 mg, oral, BID midodrine, 15 mg, oral, Q6H pantoprazole DR, 40 mg, oral, Daily potassium chloride ER, 40 mEq, oral, BID QUEtiapine, 25 mg, oral, Nightly sodium chloride 0.9%, 0.5-20 mL, intra-catheter, Q8H LEAH tamsulosin, 0.4 mg, oral, Daily with dinner Continuous Medications: norepinephrine, 0-2 mcg/kg/min, Last Rate: 0.02 mcg/kg/min (05/18/21 1645) PRN Medications: ??? acetaminophen ? ? al & mag hydroxide qzzwqlarmpj-zbkxstfckixyqov-mikxjrvzl-nystatin ??? albuterol ??? dextrose OR dextrose ??? glucagon ??? insulin regular ??? ondansetron ??? polyethylene glycol Objective Vitals: Most Recent: Vitals: 05/18/21 1500 BP: 97/63 Pulse: 92 Resp: 28 Temp: SpO2: 24hr Min/Max: Temp Min: 36.2 ??C (97.1 ??F) Max: 36.8 ??C (98.2 ??F) Pulse Min: 83 Max: 116 BP Min: 64/34 Max: 130/68 Resp Min: 0 Max: 36 SpO2 Min: 69 % Max: 97 % LDA: Introducer 05/04/21 Right Internal jugular (Active) Placement Date/Time: 05/04/21 (c) 1441 Hand Hygiene Performed: Yes Orientation: Right Location: Internal jugular Description (optional): multi-lumen access catheter (MAC) Number of days: 12 Vent settings: Hemodynamic parameters for last 24 hours: CVP: [0 mmHg-22 mmHg] 10 mmHg I/O: Date 05/17/21 07 - 05/18/21 0659 05/18/21 07 - 05/19/21 0659 Shift 0280-3524 6824-9167 24 Hour Total 2952-8193 7545-4602 24 Hour Total INTAKE P.O. 7676 672 6587 180 180 I.V.(mL/kg) 450(5.7) 145(1.8) 595(7.5) IV Piggyback 250 250 Shift Total(mL/kg) 1890(23.9) 325(4.1) 2215(28) 430(5.4) 430(5.4) OUTPUT Urine(mL/kg/hr) 1300(1.4) 995(1) 2295(1.2) Shift Total(mL/kg) 1300(16.5) 995(12.6) 2295(29) NET 590 -670 -80 430 430 Weight (kg) 79 79.1 79.1 79.1 79.1 79.1 Physical Exam: Gen:Sittin in chair, ill appearing, NAD HEENT: NC/AT, PERRLA, EOMI Neck: Supple, Trachea Midline CV: Sinus Tach, S1 and S2 heard, Distal pulses intact, Warm periphery, cap refill < 5 seconds Pulm: Diminished, on NC Abd: Soft, Nontender, Normoactive BS : Voiding Ext: No edema noted, Derm: Warm, Dry, intact, surgical sites appropriately dress and C/D/I Psych: Interacting appropriately, Cooperative Neuro: Alert, Oriented, Moves all extremities Lab/Radiology/Diagnostic Review: Laboratory review: Lab results in the last 24 hours: Recent Results (from the past 24 hour(s)) POCT glucose Collection Time: 05/17/21 6:04 PM Result Value Ref Range Glucose, POC 148 70 - 199 mg/dL POCT glucose Collection Time: 05/17/21 6:51 PM Result Value Ref Range Glucose, POC 216 (H) 70 - 199 mg/dL POCT glucose Collection Time: 05/17/21 7:38 PM Result Value Ref Range Glucose, POC 195 70 - 199 mg/dL POCT glucose Collection Time: 05/17/21 8:42 PM Result Value Ref Range Glucose, POC 172 70 - 199 mg/dL Basic metabolic panel Collection Time: 05/17/21 9:35 PM Result Value Ref Range Sodium 130 (L) 135 - 145 mmol/L Potassium, pl 3.6 3.3 - 4.9 mmol/L Chloride 94 (L) 97 - 110 mmol/L CO2 21 (L) 22 - 32 mmol/L Anion gap 15 2 - 15 mmol/L BUN 43 (H) 8 - 25 mg/dL Creatinine 1.63 (H) 0.80 - 1.30 mg/dL Glucose 140 70 - 199 mg/dL Calcium 8.4 (L) 8.5 - 10.3 mg/dL eGFR Collection Time: 05/17/21 9:35 PM Result Value Ref Range eGFR 45 mL/min/1.73 m2 POCT glucose Collection Time: 05/17/21 9:45 PM Result Value Ref Range Glucose, POC 193 70 - 199 mg/dL POCT glucose Collection Time: 05/17/21 10:50 PM Result Value Ref Range Glucose, POC 82 70 - 199 mg/dL POCT glucose Collection Time: 05/17/21 11:55 PM Result Value Ref Range Glucose, POC 106 70 - 199 mg/dL POCT glucose Collection Time: 05/18/21 1:00 AM Result Value Ref Range Glucose, POC 111 70 - 199 mg/dL POCT glucose Collection Time: 05/18/21 2:03 AM Result Value Ref Range Glucose, POC 108 70 - 199 mg/dL Basic metabolic panel Collection Time: 05/18/21 2:04 AM Result Value Ref Range Sodium 132 (L) 135 - 145 mmol/L Potassium, pl 3.7 3.3 - 4.9 mmol/L Chloride 95 (L) 97 - 110 mmol/L CO2 22 22 - 32 mmol/L Anion gap 15 2 - 15 mmol/L BUN 44 (H) 8 - 25 mg/dL Creatinine 1.63 (H) 0.80 - 1.30 mg/dL Glucose 111 70 - 199 mg/dL Calcium 8.6 8.5 - 10.3 mg/dL Phosphorus Collection Time: 05/18/21 2:04 AM Result Value Ref Range Phosphorus, pl 4.6 (H) 2.3 - 4.5 mg/dL Magnesium Collection Time: 05/18/21 2:04 AM Result Value Ref Range Magnesium 2.7 (H) 1.4 - 2.5 mg/dL CBC without differential Collection Time: 05/18/21 2:04 AM Result Value Ref Range WBC 7.6 3.8 - 9.9 K/cumm Hgb 11.2 (L) 13.0 - 17.5 g/dL Hct 33.0 (L) 38.9 - 50.3 % Plt 278 150 - 400 K/cumm MPV 12.2 9.1 - 12.3 fL RBC 3.71 (L) 4.30 - 5.80 M/cumm MCV 88.9 81.3 - 96.4 fL MCH 30.2 27.1 - 33.3 pg MCHC 33.9 32.3 - 35.7 g/dL RDW CV 13.5 11.1 - 14.9 % RDW SD 44.2 35.7 - 48.1 fL NRBC abs 0.00 0.00 - 0.01 K/cumm eGFR Collection Time: 05/18/21 2:04 AM Result Value Ref Range eGFR 45 mL/min/1.73 m2 POCT glucose Collection Time: 05/18/21 3:01 AM Result Value Ref Range Glucose, POC 118 70 - 199 mg/dL POCT glucose Collection Time: 05/18/21 3:57 AM Result Value Ref Range Glucose, POC 140 70 - 199 mg/dL POCT glucose Collection Time: 05/18/21 4:58 AM Result Value Ref Range Glucose, POC 152 70 - 199 mg/dL POCT glucose Collection Time: 05/18/21 5:52 AM Result Value Ref Range Glucose, POC 140 70 - 199 mg/dL Basic metabolic panel Collection Time: 05/18/21 6:19 AM Result Value Ref Range Sodium 132 (L) 135 - 145 mmol/L Potassium, pl 3.1 (L) 3.3 - 4.9 mmol/L Chloride 95 (L) 97 - 110 mmol/L CO2 21 (L) 22 - 32 mmol/L Anion gap 16 (H) 2 - 15 mmol/L BUN 44 (H) 8 - 25 mg/dL Creatinine 1.38 (H) 0.80 - 1.30 mg/dL Glucose 145 70 - 199 mg/dL Calcium 8.1 (L) 8.5 - 10.3 mg/dL Pro B-type natriuretic peptide Collection Time: 05/18/21 6:19 AM Result Value Ref Range NT-proBNP 2,488 (H) <=300 pg/mL eGFR Collection Time: 05/18/21 6:19 AM Result Value Ref Range eGFR 56 mL/min/1.73 m2 POCT glucose Collection Time: 05/18/21 6:56 AM Result Value Ref Range Glucose, POC 131 70 - 199 mg/dL POCT glucose Collection Time: 05/18/21 8:01 AM Result Value Ref Range Glucose, POC 147 70 - 199 mg/dL POCT glucose Collection Time: 05/18/21 9:04 AM Result Value Ref Range Glucose, POC 167 70 - 199 mg/dL POCT glucose Collection Time: 05/18/21 11:06 AM Result Value Ref Range Glucose, POC 209 (H) 70 - 199 mg/dL POCT glucose Collection Time: 05/18/21 12:15 PM Result Value Ref Range Glucose, POC 230 (H) 70 - 199 mg/dL Basic metabolic panel Collection Time: 05/18/21 12:36 PM Result Value Ref Range Sodium 130 (L) 135 - 145 mmol/L Potassium, pl 3.7 3.3 - 4.9 mmol/L Chloride 93 (L) 97 - 110 mmol/L CO2 20 (L) 22 - 32 mmol/L Anion gap 17 (H) 2 - 15 mmol/L BUN 48 (H) 8 - 25 mg/dL Creatinine 1.73 (H) 0.80 - 1.30 mg/dL Glucose 239 (H) 70 - 199 mg/dL Calcium 8.3 (L) 8.5 - 10.3 mg/dL Cortisol Collection Time: 05/18/21 12:36 PM Result Value Ref Range Cortisol 25.5 (H) 4.8 - 19.5 mcg/dl eGFR Collection Time: 05/18/21 12:36 PM Result Value Ref Range eGFR 42 mL/min/1.73 m2 POCT glucose Collection Time: 05/18/21 1:21 PM Result Value Ref Range Glucose, POC 197 70 - 199 mg/dL Cortisol Collection Time: 05/18/21 1:51 PM Result Value Ref Range Cortisol 53.1 (H) 4.8 - 19.5 mcg/dl Cortisol Collection Time: 05/18/21 2:32 PM Result Value Ref Range Cortisol >63.0 (H) 4.8 - 19.5 mcg/dl POCT glucose Collection Time: 05/18/21 5:22 PM Result Value Ref Range Glucose, POC 141 70 - 199 mg/dL XR Chest 1 View Result Date: 05/16/2021 No change from previous. Electronically signed by: Humphrey Mojica M.D. Plan: Neuro - Seroquel CV # HFrEF in setting of recent CABG and MT - Diuresis - Unable to tolerate afterload reduction agents or BB - TTE with reduced EF - Cardiology following # Shock - Undifferentiated - ACTH Stim unremarkable - Check TSH - VQ low probability - NE currently # CAD - ASA and statin Pulm # Acute Hypoxemic Respiratory Failure secondary to # Pulmonary Edema - Titrate FiO2 for SpO2 > 92 - Pulm hygiene, OOB, IS - Diuresis GI Diet: ADAT PUD PPx: PPI Bowel regimen: Colace and Miralax Endo # Possible DKA - Insulin drip . Long acting and SSI - Endo following Renal/ # ISRRAEL - Follow UOP, lytes and RFP # Hematuria s/p cystoscopy/fulguration - f/u urology regarding ability to place osorio # Electrolyte Derangements - Replacing prn Heme - No acute indication for transfusion - Daily CBC VTE PPx: SCDs and Lovenox ID - Watch off abx ICU standards of care: Restraints: N/A Physical Therapy/Activity: PT Ordered/ To chair TID Access: RIJ Introducer Other: Goals of care: Full code Community AM Assessment and plan has been reviewed with attending, HEIDY Colon [phone], IRAIDA , IRAIDA 2 Critical Care Medicine [facility] in [facility] Cosigned by Alexandru Porter MD at 05/19/2021 6:17 PM STAFF FORESTER F FORESTER F FORESTER * Lester Batista MD - 05/18/2021 10:13 AM CST Cardiology Inpatient Progress Note [facility] SUBJECTIVE: Back on low-dose of norepinephrine due to hypertension has mild sinus tachycardia Complains of feeling fatigue and tired became dizzy on getting up no chest pain oxygen requirement is down OBJECTIVE: Vitals: 05/18/21 0950 05/18/21 0955 05/18/21 1000 05/18/21 1005 BP: 91/69 93/57 Pulse: 114 111 110 108 Resp: Temp: TempSrc: SpO2: Weight: Height: General: Comfortable not in acute distress Cardiac: RRR without murmur or gallop. Normal S1 and S2. No JVD. Vascular: Pulses are palpable in all extremities. No carotid bruits. Lungs: Reduced air entry at bases Abdomen: Soft, NT/ND, +BS Ext: Warm without edema. No cyanosis or clubbing. ASSESSMENT/PLAN: 1. CAD status post CABG for STEMI -Cardiac cath on 05/01 with 40% distal LM; 100% prox LAD; 90% prox Cx; 50% prox and distal RCA -Left ventriculogram:??Moderate blanka-apical hypokinesis; echo on 05/02 with EF ~40% -balloon angioplasty was performed during acute MT and subsequently patient underwent CABG x4 on 05/04/2021 - ischemic cardiomyopathy EF 35-40% on 05/09/2021 2. Hypotension blood pressure remains on the lower side - patient was on midodrine now norepinephrine has been resumed 3. Diabetes -stable on insulin per primary team 4. COPD and respiratory failure was transferred back to the ICU on 112: -stable without any acute issues oxygen requirement declining ?? 5. PAD: - stable 6. Hematuria -Plavix is currently on hold??urology following??- -S/P??cystoscopy 05/14??Approximately 500-600 mL of clots in the bladder evacuated. Bleeding from the previous tumor resection site approximately 3-4 cm in diameter which was fulgurated and hemostasis obtained. Plan: Check cortisol level and empiric Florinef. With EF 35-40% less likely cardiac issue causing persistent low blood pressure, pericardial effusion has been ruled out. May consider RHC if etiology of low BP remains unclear. Lester Batista MD, [facility], [facility] [place], [employer] [facility] [phone] F FORESTER * Marylu Dempsey, PT - 05/18/2021 9:06 AM CST Physical Therapy Re-EVALUATION PATIENT'S NAME:Deepak Alvarado :1960 AGE:60 y.o. TIME IN: 09:25 TIME OUT:09:57 CURRENT DIAGNOSIS AND HOSPITAL COURSE: Deepak Alvarado??is a 60 y.o.??male??who presents with retrosternal chest pain accompanied by sweating and shortness of breath. Patient underwent bladder surgery (cystoscopy, clot evacuation, and transurethral resection of bladder tumor) ??at [facility] 04/30/2021 and was discharged 05/01/2021. Patient transferred to for emergent cardiac catheterization. Patient admitted with acute anterior wall MT, s/p cardiac cath with PTCA of the LAD anddiagonal, intra-aortic balloon pump placement 05/01, CAD, s/p CABG x4 on 05/04/2021 - Dr. Granados. Patient self- extubated on 05/05/2021, post-op tachypnea, acute respiratory failure, cardiogenic shock, cardiomyopathy, EF 40%, s/p IABP removal 05/06/2021 INTERVAL HOSPITAL COURSE 05/07/21 - 05/18/21: Patient transferred out of ICU on 05/08/21. Pacemakerwires removed on 05/13/21. Patient noted to have hematuria, s/p cystoscopy with clot evacuation andfulguration on 05/14/21, osorio catheter dislodged on 05/15/21. Patient developed acute respiratory failure with increasing O2 requirements, transferred to ICU on 05/17/21, found to have pulmonary edema. PMH significant for CAD, s/p multiple stents, HTN, hyperlipidemia, DM, PVD, obesity, tobacco use Patient Active Problem List Diagnosis ??? ST elevation myocardial infarction (STEMI) (HCC) Past Medical History: Diagnosis Date ??? Chronic obstructive pulmonary disease (CMS/HCC) (HCC) COPD ??? Coronary artery disease ??? Diabetes mellitus (HCC) ??? H/O heart artery stent 2006 ??? Hypertension Hypertension ??? ST elevation (STEMI) myocardial infarction (HCC) 05/01/2021 History reviewed. No pertinent surgical history. SUBJECTIVE Obtained from PT initial evaluation on 05/07/21 by Brandi Paez Per OT interview Lives with:?? and two children (ages 15 and 16) ?? Receives assistance from / other social supports available:??supportive family who is able to provide 24 hour assistance upon discharge as needed ?? Living environment (Type of residence / Entrance accessibility): 1-story house/ trailer, number of outside stairs:??ramped entrance without handrails, number of inside stairs:??0 steps - no basement ?? Bathroom location and setup:??Main floor and Tub/shower combination ?? Prior level of function:? Prior to admission patient independent with:??Bathing, Dressing - Upper Body, Dressing - Lower Body, Eating / Feeding, Gait, Grooming, Medication Management, Toileting and Transfers ?? Patient total assistance with:??House Cleaning - Light, House Cleaning - Heavy, Laundry, Meal Preparation - Simple, Meal Preparation - Complex, Paying Bills and Shopping ?? Mobility device used prior to admission:??No device ?? Equipment available:??Bedside commode, Straight cane and Wheeled walker ?? Community access / Driving:??Driven by others ?? Vocational / Occupation:??unemployed ?? Social roles / Hobbies:??enjoys sitting on my butt . Therapist provided increased encouragement for patient to identify how he spends his time and patient reports watching television ?? Patient / Family goal(s):?? Just to recover ?? Fall(s) within the last 6 months:??NO MENTAL STATUS/ORIENTATION: Alert and oriented x person, place, situation, current year. Disorientedto current month. OBJECTIVE PRECAUTIONS: fall, cardiac, sternal APPEARANCE/POSTURE: Patient supine in bed, HOB elevated 45 deg, wearing hospital gown, slipper socks, peripheral IV, court monitor, central line, sternal incision with steristrips, no bed alarm in use. VITAL SIGNS: Resting BP: 100/68 Post-activity BP: 76/53 - RN aware and adjusted Levophed Resting heart rate: 104 bpm Post-activity heart rate: 117 bpm Resting O2 sat: 92% on 5 L/min via NC Post-activity O2 sat: 100%% on 5 L/min via NC ORTHOSTATIC VITAL SIGNS: Supine: BP: 100/68 HR: 104 bpm Sitting: BP: 84/56 HR: 114 bpm Standing: BP: 87/56 HR: 117 PAIN: Pre-therapy pain level: 08/27 Pain location: bilat hips, Pain intervention: repositioned Post-therapy pain level/response to intervention: 08/27 LE ASSESSMENTS: Right LE ROM: WFL Left LE ROM: WFL Right LE strength: ankle DF/PF 4/5, knee ext 4/5, hip flex 3+/5, hip abd/add 3+/5 Left LE strength: ankle DF/PF 4/5, knee ext 4/5, hip flex 3+/5, hip abd/add 3+/5 Tone: normal MOBILITY: Bed mobility: supine to sit min assist Transfers: sit to/from stand min assist of 1 Bed to chair min assist of 1 and CG assist of 1 Ambulation: Distance: 3 steps at bedside Assistive device: two hand hold Level of assist: minimal assist of 1 and CG assist of 1 Deviations: unsteady, guarded posture, bilat decreased step length, cautious steps - c/o dizziness with positive orthostatic hypotension - RN aware and present in room. Stairs: not appropriate Balance/Special Tests: Static sitting balance: G unsupported Dynamic sitting balance: G- unsupported Static standing balance: F supported Dynamic standing balance: F- supported [facility] 6 CLICK Basic Mobility - 6 Click How much difficulty does the patient have: Turning over in bed: A little How much difficulty does the patient currently have: Sitting down and standing up from a chair witharms?: A little How much difficulty does the patient have: Moving from lying on back to sitting on the side of the bed?: A little How much difficulty does the patient have: Moving to and from a bed to a chair including wheelchair?: A lot How much help does the patient currently need: Walk in hospital room?: Total How much help from another person does the patient currently need: Climbing 3-5 steps with a railing?: Total Total 6 Click Score (range 6-24): 13 APPEARANCE/POSTURE (end of session): Patient sitting in b/s chair, appearance unchanged, call lightwithin reach, chair alarm in chair. RN present in room. Handoff report given to Betty POE EDUCATION: PT plan of care, reviewed sternal precautions, reviewed pursed lip breathing technique, encouraged participation. RESPONSE TO EDUCATION: needs reinforcement and verbalizes understanding ASSESSMENT PROBLEM LIST: deconditioning, decreased activity tolerance with orthostatic hypotension and need for supplemental O2, decreased mobility, gait instability, balance impairment, decreased mobility, sternal precautions. BARRIERS TO LEARNING: Cognitive BARRIERS TO DISCHARGE: Pain, Limited family support, Limited safety awareness, Limited participation, Decreased endurance, Lower extremity weakness and sternal precautions REHAB POTENTIAL/PROGNOSIS: good PLAN DISCHARGE LOCATION RECOMMENDATIONS: INPATIENT REHABILITATION PENDING QUALIFYING CRITERIA TREATMENT PLAN/INTERVENTIONS: acute PT for above documented limitaitons FREQUENCY: 3-5x/week, daily EQUIPMENT RECOMMENDATIONS: wheeled walker Refer to multi-disciplinary care plan section for PT specific goals. If this is the last note, please consider this the discharge summary. F FORESTER * Abelino Leblanc MD - 05/18/2021 8:50 AM CST Daily Progress Subjective Chief complaint of status post CABG, respiratory failure Interval History: Patient sitting in bed Feeling better, Appetite is decreased but he is able to tolerate some p.o. Insulin drip has been running 0 to 1 unit/hour There has been no need for pressors Objective Vitals: 24hr Min/Max: Temp Min: 36.2 ??C (97.1 ??F) Max: 36.7 ??C (98.1 ??F) Pulse Min: 79 Max: 107 BP Min: 64/34 Max: 132/73 Resp Min: 0 Max: 31 SpO2 Min: 85 % Max: 98 % Most Recent : Vitals: 05/18/21 0600 BP: Pulse: 103 Resp: 22 Temp: SpO2: 95% I/O last 2 completed shifts: In: 2215 [P.O.:1620; I.V.:595] Out: 2295 [Urine:2295] No intake/output data recorded. Physical Exam: Physical Exam Constitutional: Appearance: He is well-developed. HENT: Head: Normocephalic and atraumatic. Eyes: Conjunctiva/sclera: Conjunctivae normal. Pupils: Pupils are equal, round, and reactive to light. Neck: Thyroid: No thyroid mass or thyromegaly. Trachea: Trachea and phonation normal. Cardiovascular: Rate and Rhythm: Normal rate and regular rhythm. Heart sounds: Normal heart sounds. No murmur heard. Pulmonary: Effort: Pulmonary effort is normal. Breath sounds: Normal breath sounds. Abdominal: General: There is no distension. Palpations: Abdomen is soft. Musculoskeletal: General: Normal range of motion. Skin: General: Skin is warm. Neurological: Mental Status: He is alert and oriented to person, place, and time. Motor: Motor function is intact. Psychiatric: Behavior: Behavior normal. Lab/Radiology/Diagnostic Review: Laboratory review: Lab results in the last 24 hours: Recent Results (from the past 24 hour(s)) POCT glucose Collection Time: 05/17/21 6:04 PM Result Value Ref Range Glucose, POC 148 70 - 199 mg/dL POCT glucose Collection Time: 05/17/21 6:51 PM Result Value Ref Range Glucose, POC 216 (H) 70 - 199 mg/dL POCT glucose Collection Time: 05/17/21 7:38 PM Result Value Ref Range Glucose, POC 195 70 - 199 mg/dL POCT glucose Collection Time: 05/17/21 8:42 PM Result Value Ref Range Glucose, POC 172 70 - 199 mg/dL Basic metabolic panel Collection Time: 05/17/21 9:35 PM Result Value Ref Range Sodium 130 (L) 135 - 145 mmol/L Potassium, pl 3.6 3.3 - 4.9 mmol/L Chloride 94 (L) 97 - 110 mmol/L CO2 21 (L) 22 - 32 mmol/L Anion gap 15 2 - 15 mmol/L BUN 43 (H) 8 - 25 mg/dL Creatinine 1.63 (H) 0.80 - 1.30 mg/dL Glucose 140 70 - 199 mg/dL Calcium 8.4 (L) 8.5 - 10.3 mg/dL eGFR Collection Time: 05/17/21 9:35 PM Result Value Ref Range eGFR 45 mL/min/1.73 m2 POCT glucose Collection Time: 05/17/21 9:45 PM Result Value Ref Range Glucose, POC 193 70 - 199 mg/dL POCT glucose Collection Time: 05/17/21 10:50 PM Result Value Ref Range Glucose, POC 82 70 - 199 mg/dL POCT glucose Collection Time: 05/17/21 11:55 PM Result Value Ref Range Glucose, POC 106 70 - 199 mg/dL POCT glucose Collection Time: 05/18/21 1:00 AM Result Value Ref Range Glucose, POC 111 70 - 199 mg/dL POCT glucose Collection Time: 05/18/21 2:03 AM Result Value Ref Range Glucose, POC 108 70 - 199 mg/dL Basic metabolic panel Collection Time: 05/18/21 2:04 AM Result Value Ref Range Sodium 132 (L) 135 - 145 mmol/L Potassium, pl 3.7 3.3 - 4.9 mmol/L Chloride 95 (L) 97 - 110 mmol/L CO2 22 22 - 32 mmol/L Anion gap 15 2 - 15 mmol/L BUN 44 (H) 8 - 25 mg/dL Creatinine 1.63 (H) 0.80 - 1.30 mg/dL Glucose 111 70 - 199 mg/dL Calcium 8.6 8.5 - 10.3 mg/dL Phosphorus Collection Time: 05/18/21 2:04 AM Result Value Ref Range Phosphorus, pl 4.6 (H) 2.3 - 4.5 mg/dL Magnesium Collection Time: 05/18/21 2:04 AM Result Value Ref Range Magnesium 2.7 (H) 1.4 - 2.5 mg/dL CBC without differential Collection Time: 05/18/21 2:04 AM Result Value Ref Range WBC 7.6 3.8 - 9.9 K/cumm Hgb 11.2 (L) 13.0 - 17.5 g/dL Hct 33.0 (L) 38.9 - 50.3 % Plt 278 150 - 400 K/cumm MPV 12.2 9.1 - 12.3 fL RBC 3.71 (L) 4.30 - 5.80 M/cumm MCV 88.9 81.3 - 96.4 fL MCH 30.2 27.1 - 33.3 pg MCHC 33.9 32.3 - 35.7 g/dL RDW CV 13.5 11.1 - 14.9 % RDW SD 44.2 35.7 - 48.1 fL NRBC abs 0.00 0.00 - 0.01 K/cumm eGFR Collection Time: 05/18/21 2:04 AM Result Value Ref Range eGFR 45 mL/min/1.73 m2 POCT glucose Collection Time: 05/18/21 3:01 AM Result Value Ref Range Glucose, POC 118 70 - 199 mg/dL POCT glucose Collection Time: 05/18/21 3:57 AM Result Value Ref Range Glucose, POC 140 70 - 199 mg/dL POCT glucose Collection Time: 05/18/21 4:58 AM Result Value Ref Range Glucose, POC 152 70 - 199 mg/dL POCT glucose Collection Time: 05/18/21 5:52 AM Result Value Ref Range Glucose, POC 140 70 - 199 mg/dL Basic metabolic panel Collection Time: 05/18/21 6:19 AM Result Value Ref Range Sodium 132 (L) 135 - 145 mmol/L Potassium, pl 3.1 (L) 3.3 - 4.9 mmol/L Chloride 95 (L) 97 - 110 mmol/L CO2 21 (L) 22 - 32 mmol/L Anion gap 16 (H) 2 - 15 mmol/L BUN 44 (H) 8 - 25 mg/dL Creatinine 1.38 (H) 0.80 - 1.30 mg/dL Glucose 145 70 - 199 mg/dL Calcium 8.1 (L) 8.5 - 10.3 mg/dL Pro B-type natriuretic peptide Collection Time: 05/18/21 6:19 AM Result Value Ref Range NT-proBNP 2,488 (H) <=300 pg/mL eGFR Collection Time: 05/18/21 6:19 AM Result Value Ref Range eGFR 56 mL/min/1.73 m2 POCT glucose Collection Time: 05/18/21 6:56 AM Result Value Ref Range Glucose, POC 131 70 - 199 mg/dL POCT glucose Collection Time: 05/18/21 8:01 AM Result Value Ref Range Glucose, POC 147 70 - 199 mg/dL POCT glucose Collection Time: 05/18/21 9:04 AM Result Value Ref Range Glucose, POC 167 70 - 199 mg/dL POCT glucose Collection Time: 05/18/21 11:06 AM Result Value Ref Range Glucose, POC 209 (H) 70 - 199 mg/dL POCT glucose Collection Time: 05/18/21 12:15 PM Result Value Ref Range Glucose, POC 230 (H) 70 - 199 mg/dL Basic metabolic panel Collection Time: 05/18/21 12:36 PM Result Value Ref Range Sodium 130 (L) 135 - 145 mmol/L Potassium, pl 3.7 3.3 - 4.9 mmol/L Chloride 93 (L) 97 - 110 mmol/L CO2 20 (L) 22 - 32 mmol/L Anion gap 17 (H) 2 - 15 mmol/L BUN 48 (H) 8 - 25 mg/dL Creatinine 1.73 (H) 0.80 - 1.30 mg/dL Glucose 239 (H) 70 - 199 mg/dL Calcium 8.3 (L) 8.5 - 10.3 mg/dL Cortisol Collection Time: 05/18/21 12:36 PM Result Value Ref Range Cortisol 25.5 (H) 4.8 - 19.5 mcg/dl eGFR Collection Time: 05/18/21 12:36 PM Result Value Ref Range eGFR 42 mL/min/1.73 m2 POCT glucose Collection Time: 05/18/21 1:21 PM Result Value Ref Range Glucose, POC 197 70 - 199 mg/dL Cortisol Collection Time: 05/18/21 1:51 PM Result Value Ref Range Cortisol 53.1 (H) 4.8 - 19.5 mcg/dl Cortisol Collection Time: 05/18/21 2:32 PM Result Value Ref Range Cortisol >63.0 (H) 4.8 - 19.5 mcg/dl Assessment/Plan Principal Problem: ST elevation myocardial infarction (STEMI) (HCC) T2 DM, uncontrolled Will stop insulin drip Transition to subcutaneous insulin with Lantus and Humalog Will target glucose in the 120 to 160 range, avoiding hypoglycemia Will adjust insulin regimen to this target glucose Consistent carb Status post CABG, respiratory failure, as per admitting team and Cardiology Service Will continue to follow Abelino Leblanc MD 05/18/2021 9:14 AM F FORESTER * Alejandro Pratt MD - 05/18/2021 8:26 AM CST Pulmonary Daily Progress Chief complaint/reason for consult: Respiratory failure. Interval History: Pt sitting up in chair this am Feels dizzy Oxygen has been weaned from 15 lpm yesterday am to 6 lpm Now requiring pressors Currently on insulin drip for uncontrolled DM Diuresing well with furosemide infusion; now on hold He denies dyspnea Not much cough No chest pain No fevers Presenting History: 60 yo man w COPD, DM, CAD/stents admitted 05/01/21 with chest pain. Had recent hematuria as well. Workup revealed an acute MT. Cath showed multi-vessel CAD. Had balloon pump placed. CABG x 4 done on 05/04/21. He was continued on mechanical ventilation and self extubated this AM (05/05/21). He is on multiple pressors. Sedated with precedex. Some tachypnea. A balloon pump is in place. Current tobacco use. COPD listed as prior diagnosis. No inhalers on home med list. Allergies: Allergies Allergen Reactions ??? Metoclopramide Medications: Scheduled Meds:aspirin, 81 mg, oral, Daily atorvastatin, 80 mg, oral, Nightly docusate sodium, 100 mg, oral, BID enoxaparin, 40 mg, subcutaneous, Daily-2100 metOLazone, 10 mg, oral, BID DIURETIC [Held by Provider] metoprolol tartrate, 12.5 mg, oral, BID midodrine, 10 mg, oral, Q6H pantoprazole DR, 40 mg, oral, Daily potassium chloride ER, 40 mEq, oral, BID QUEtiapine, 25 mg, oral, Nightly sodium chloride 0.9%, 0.5-20 mL, intra-catheter, Q8H LEAH tamsulosin, 0.4 mg, oral, Daily with dinner Continuous Infusions:furosemide, 10 mg/hr, Last Rate: 10 mg/hr (05/17/21 1824) insulin regular, 0-30 Units/hr, Last Rate: 1 Units/hr (05/18/21 0658) norepinephrine, 0-2 mcg/kg/min, Last Rate: 0.01 mcg/kg/min (05/18/21 0428) PRN Meds:.??? acetaminophen ? ? al & mag hydroxide kjjojjmuruw-vvtfhsadqqrpxul-dgzzgpnmv-nystatin ??? albuterol ??? dextrose ??? dextrose OR dextrose ??? glucagon ??? insulin regular ??? ondansetron ??? polyethylene glycol ROS Above review of system reviewed on 05/18/2021 Vitals: Vitals: 05/18/21 0515 05/18/21 0530 05/18/21 0545 05/18/21 0600 BP: 107/65 Pulse: 98 100 101 103 Resp: 16 22 Temp: TempSrc: SpO2: 93% 90% 95% 95% Weight: Height: Temp (24hrs), Av.4 ??C (97.6 ??F), Min:36.2 ??C (97.1 ??F), Max:36.7 ??C (98.1 ??F) Intake/Output Summary (Last 24 hours) at 05/18/2021 0826 Last data filed at 05/18/2021 0645 Gross per 24 hour Intake 1615 ml Output 2145 ml Net -530 ml Physical Exam Constitutional: General: He is not in acute distress. Appearance: He is well-developed. HENT: Head: Normocephalic and atraumatic. Eyes: Conjunctiva/sclera: Conjunctivae normal. Neck: Thyroid: No thyromegaly. Cardiovascular: Rate and Rhythm: Normal rate and regular rhythm. Heart sounds: No murmur heard. Pulmonary: Effort: Pulmonary effort is normal. No respiratory distress. Breath sounds: Normal breath sounds. No stridor. No wheezing or rales. Chest: Comments: Sternotomy incision Abdominal: General: Bowel sounds are normal. Palpations: Abdomen is soft. Skin: General: Skin is warm and dry. Neurological: Mental Status: He is alert. Lab/Radiology/Diagnostic Review: Labs: Recent Labs Lab Units 05/18/21 0204 05/17/21 0333 05/16/21 0542 WBC K/cumm 7.6 8.7 6.2 HEMOGLOBIN g/dL 11.2* 11.3* 9.9* HEMATOCRIT % 33.0* 33.8* 30.8* PLATELETS K/cumm 278 267 241 NEUTROS PCT % -- 78.4 -- LYMPHS PCT % -- 11.7 -- MONOS PCT % -- 9.0 -- EOS PCT % -- 0.1 -- Recent Labs Lab Units 05/18/21 0801 05/18/21 0656 05/18/21 0619 05/18/21 0301 05/18/21 0204 05/17/21 2145 05/17/21 2135 05/17/21 0936 05/17/21 0333 SODIUM mmol/L -- -- 132* -- 132* -- 130* < > 133* POTASSIUM PLASMA mmol/L -- -- 3.1* -- 3.7 -- 3.6 < > 2.6* CHLORIDE mmol/L -- -- 95* -- 95* -- 94* < > 92* CO2 mmol/L -- -- 21* -- 22 -- 21* < > 22 ANIONGAP mmol/L -- -- 16* -- 15 -- 15 < > 19* GLUCOSE mg/dL -- -- 145 < > 111 < > 140 < > 157 POC GLUCOSE MONITOR mg/dL 147 131 -- < > -- < > -- < > -- BUN SERUM mg/dL -- -- 44* -- 44* -- 43* < > 25 CREATININE mg/dL -- -- 1.38* -- 1.63* -- 1.63* < > 1.06 CALCIUM mg/dL -- -- 8.1* -- 8.6 -- 8.4* < > 8.3* ALBUMIN g/dL -- -- -- -- -- -- -- -- 3.5 ALK PHOS Units/L -- -- -- -- -- -- -- -- 94 ALT Units/L -- -- -- -- -- -- -- -- 20 AST Units/L -- -- -- -- -- -- -- -- 64* BILIRUBIN TOTAL mg/dL -- -- -- -- -- -- -- -- 0.7 < > = values in this interval not displayed. Recent Labs Lab Units 05/17/21 0220 PH ART 7.50* PCO2 ART mmHg 27* PO2 ART mmHg 72* HCO3 ART (CALC) mmol/L 24 BASE EXC ART mmol/L -2 O2 SAT ART (JOELLE) % 96* Imaging: CXR 05/18: CM, mild PVC, elevated L hemidiaphragm CXR 05/16: CM, hazy left chest, L basilar atelectasis Other diagnostic tests: I have personally reviewed above laboratory findings, chest imaging, and diagnostic tests 05/18/2021 Assessment and Plan: Acute respiratory failure Acute MT w CAD s/p CABG x 4 on 05/04/21, past hx multiple stents Cardiogenic shock Cardiomyopathy EF 40% V fib Hx COPD Anemia Infiltrates: edema v pna, tracheal aspirate w yeast Hematuria s/p cystoscopy/fulguration ?? Recs: Oxygen support, wean as able Incentive spirometry Diurese as able abx coverage for pna: Zosyn, completed Scheduled bronchodilators Increase activity as tolerated Chart reviewed F FORESTER * Deirdre Conley OT - 05/18/2021 6:37 AM CST Occupational Therapy 05/18/21 0637 General Session Type Other (comment) (NO OT PROVIDED. NO OT CHARGE.) OT Missed Visit Reason Other (comment) (HOLD OT.) PATIENT ON HOLD FOR OCCUPATIONAL THERAPY DUE TO TRANSFER TO ICU ON 05/17/2021. WILL REQUIRE NEW ORDERS FOR OT RE-EVALUATION WHEN MEDICALLY APPROPRIATE Deirdre Conley OT 05/18/21 6:39 AM F FORESTER * Angie Davies RRT - 05/17/2021 9:16 PM CST Spoke w RN Deandre re: Deepak's breathing. He seems to have increasing O2 requirements, currently on 5-6L HFNC satting in upper 80s. Patient exhibits w fast shallow breathing, minimal air movement upon auscultation, despite increased WOB. Recommended stat CXR. RN currently consulting critical care team. F FORESTER * Elena Kelly NP - 05/17/2021 7:00 PM CST Images from the original note were not included. Critical Care Medicine Daily Progress Team: Community PM Subjective Patient is a 60 y.o. y/o male admitted on 05/01/2021 5:20 PM with the following indication(s) for ICU care hypoxemic respiratory failure, pulmonary edema, hypokalemia, shock Interval History: - Increased O2 requirements overnight -> repeat CXR without significant change - NE started overnight for MAP > 65 - Lasix infusion at 10 - Bladder scan -> 400 mls -> holding on placing osorio - Urology consult in am - Tamsulosin added - Insulin infusion per endocrine HPI (05/17) 60M smoker hx copd, obesity, pvd, htn, hld, dm2 & CAD s/p multiple LAD stents who p/w anterior STEMI after bladder procedure on 04/29. [facility] was taken to [facility] on 04/30 where they found in-stent thrombosis and an angioplasty was performed but stent could not be placed. A balloon pump was placed and the patient was transferred to the CVU. CT-surgery was consulted for CABG. The patie nt underwent a 4 vessel cabg on 05/04 w/ Dr. Granados (MAE->LAD, Saph vein->diag & obtuse, Saph->PDA). He developed rebleeding from his bladder tumor and this was adressed by urology. Heself extubated the next day after his CABG. His osorio was removed yesterday and he is currently post op day 11 from the CABG. He has been getting diuresed on the floor but has unfortunately had increasing oxygen requirement for the last 24 hours despite diuresis. He is currently on a non-rebreatherand being transferred to the ICU. Hospital Course 04/29 Cystoscopy at [facility] 04/30 STEMI, [facility] -> instent thrombosis, angioplasty, IABP, transfer to [facility] 05/04/21: Increased blood clot from osorio and obstruction with pain. 05/05/21: Brief asystole o/n w turning. Stable after. Self extubated in AM. 05/06/21: NAEON. Maintained on CPAP and optiflow. 05/07/21: NAEON. Up in chair at time of exam. TTF 05/10 near syncopal episode 05/14 cystoscopy with clot removal and fulguration of bleeding 05/17 readmit to ICU with pulmonary edema, lasix drip Scheduled Medications: aspirin, 81 mg, oral, Daily atorvastatin, 80 mg, oral, Nightly docusate sodium, 100 mg, oral, BID enoxaparin, 40 mg, subcutaneous, Daily-2100 metOLazone, 10 mg, oral, BID DIURETIC [Held by Provider] metoprolol tartrate, 12.5 mg, oral, BID midodrine, 10 mg, oral, Q6H pantoprazole DR, 40 mg, oral, Daily potassium chloride ER, 40 mEq, oral, BID QUEtiapine, 25 mg, oral, Nightly sodium chloride 0.9%, 0.5-20 mL, intra-catheter, Q8H LEAH tamsulosin, 0.4 mg, oral, Daily with dinner Continuous Medications: furosemide, 10 mg/hr, Last Rate: 10 mg/hr (05/17/21 1824) insulin regular, 0-30 Units/hr, Last Rate: 0.5 Units/hr (05/18/21 0203) norepinephrine, 0-2 mcg/kg/min, Last Rate: 0.02 mcg/kg/min (05/18/21 0114) sodium chloride 0.9%, PRN Medications: ??? acetaminophen ? ? al & mag hydroxide hyfsrbkmtcl-pegbuxxqnvnetro-cizwxunmt-nystatin ??? albuterol ??? dextrose ??? dextrose OR dextrose ??? glucagon ??? insulin regular ??? ondansetron ??? polyethylene glycol Objective Vitals: Most Recent: Vitals: 05/18/21 0000 BP: Pulse: Resp: Temp: 36.7 ??C (98.1 ??F) SpO2: 24hr Min/Max: Temp Min: 36.2 ??C (97.1 ??F) Max: 37.1 ??C (98.8 ??F) Pulse Min: 79 Max: 118 BP Min: 74/42 Max: 132/73 Resp Min: 0 Max: 37 SpO2 Min: 89 % Max: 99 % LDA: Introducer 05/04/21 Right Internal jugular (Active) Placement Date/Time: 05/04/21 (c) 1441 Hand Hygiene Performed: Yes Orientation: Right Location: Internal jugular Description (optional): multi-lumen access catheter (MAC) Number of days: 12 Hemodynamic parameters for last 24 hours: CVP: [0 mmHg-2 mmHg] 2 mmHg I/O: Date 05/17/21699 - 05/18/2159 05/18/21699 - 05/19/21 0659 Shift 9045-2184 1023-3956 24 Hour Total 3743-3036 7808-3357 24 Hour Total INTAKE P.O. 8489 655 5286 I.V.(mL/kg) 450(5.7) 95(1.2) 545(6.9) Shift Total(mL/kg) 1890(23.9) 235(3) 2125(26.9) OUTPUT Urine(mL/kg/hr) 1300(1.4) 0 1300 Shift Total(mL/kg) 1300(16.5) 0(0) 1300(16.5) NET 590 235 825 Weight (kg) 79 79 79 79 79 79 Physical Exam: Gen:Sittin in chair, ill appearing, NAD HEENT: NC/AT, PERRLA, EOMI Neck: Supple, Trachea Midline CV: NSR, S1 and S2, Distal pulses intact, Warm periphery, cap refill < 5 seconds Pulm: Diminished, on NC Abd: Soft, Nontender, Normoactive BS : Voiding Ext: No edema noted Derm: Warm, Dry, intact, surgical sites appropriately dress and C/D/I Neuro: Alert, Oriented, Moves all extremities Lab/Radiology/Diagnostic Review: Laboratory review: Lab results in the last 24 hours: Recent Results (from the past 24 hour(s)) POCT glucose Collection Time: 05/17/21 2:21 AM Result Value Ref Range Glucose, POC 139 70 - 199 mg/dL Comprehensive metabolic panel Collection Time: 05/17/21 3:33 AM Result Value Ref Range Sodium 133 (L) 135 - 145 mmol/L Potassium, pl 2.6 (Critical) 3.3 - 4.9 mmol/L Chloride 92 (L) 97 - 110 mmol/L CO2 22 22 - 32 mmol/L Anion gap 19 (H) 2 - 15 mmol/L BUN 25 8 - 25 mg/dL Creatinine 1.06 0.80 - 1.30 mg/dL Glucose 157 70 - 199 mg/dL Calcium 8.3 (L) 8.5 - 10.3 mg/dL Bilirubin, total 0.7 0.1 - 1.2 mg/dL Protein, pl 7.3 6.5 - 8.5 g/dL Albumin 3.5 3.5 - 5.0 g/dL Alk phos 94 40 - 130 Units/L ALT 20 7 - 55 Units/L AST 64 (H) 10 - 50 Units/L Calcium, ionized Collection Time: 05/17/21 3:33 AM Result Value Ref Range Ca, ionized, bld 4.42 (L) 4.60 - 5.20 mg/dL Ca, ionized, bld, calc 4.44 (L) 4.60 - 5.20 mg/dL Magnesium Collection Time: 05/17/21 3:33 AM Result Value Ref Range Magnesium 1.7 1.4 - 2.5 mg/dL Phosphorus Collection Time: 05/17/21 3:33 AM Result Value Ref Range Phosphorus, pl 4.4 2.3 - 4.5 mg/dL CBC with auto differential Collection Time: 05/17/21 3:33 AM Result Value Ref Range WBC 8.7 3.8 - 9.9 K/cumm Hgb 11.3 (L) 13.0 - 17.5 g/dL Hct 33.8 (L) 38.9 - 50.3 % Plt 267 150 - 400 K/cumm MPV 12.1 9.1 - 12.3 fL RBC 3.76 (L) 4.30 - 5.80 M/cumm MCV 89.9 81.3 - 96.4 fL MCH 30.1 27.1 - 33.3 pg MCHC 33.4 32.3 - 35.7 g/dL RDW CV 13.3 11.1 - 14.9 % RDW SD 43.8 35.7 - 48.1 fL NRBC abs 0.00 0.00 - 0.01 K/cumm Differential, auto Collection Time: 05/17/21 3:33 AM Result Value Ref Range Neutrophil abs 6.8 (H) 1.7 - 6.5 K/cumm Imm gran abs 0.1 0.0 - 0.1 K/cumm Lymphocyte abs 1.0 0.8 - 3.3 K/cumm Monocyte abs 0.8 0.2 - 0.8 K/cumm Eosinophil abs 0.0 0.0 - 0.5 K/cumm Basophil abs 0.0 0.0 - 0.1 K/cumm Neutrophil pct 78.4 % Imm gran pct 0.6 % Lymphocyte pct 11.7 % Monocyte pct 9.0 % Eosinophil pct 0.1 % Basophil pct 0.2 % eGFR Collection Time: 05/17/21 3:33 AM Result Value Ref Range eGFR 76 mL/min/1.73 m2 Oxyhemoglobin, central venous Collection Time: 05/17/21 3:43 AM Result Value Ref Range Oxyhemoglobin, CV 57.0 % Oxyhemoglobin, central venous Collection Time: 05/17/21 4:50 AM Result Value Ref Range Oxyhemoglobin, CV 83.8 % POCT glucose Collection Time: 05/17/21 9:36 AM Result Value Ref Range Glucose, POC 268 (H) 70 - 199 mg/dL Basic metabolic panel Collection Time: 05/17/21 9:53 AM Result Value Ref Range Sodium 129 (L) 135 - 145 mmol/L Potassium, pl 3.6 3.3 - 4.9 mmol/L Chloride 89 (L) 97 - 110 mmol/L CO2 21 (L) 22 - 32 mmol/L Anion gap 19 (H) 2 - 15 mmol/L BUN 32 (H) 8 - 25 mg/dL Creatinine 1.24 0.80 - 1.30 mg/dL Glucose 343 (H) 70 - 199 mg/dL Calcium 8.4 (L) 8.5 - 10.3 mg/dL Lactate Collection Time: 05/17/21 9:53 AM Result Value Ref Range Lactate 1.7 0.7 - 2.0 mmol/L Beta-hydroxybutyrate Collection Time: 05/17/21 9:53 AM Result Value Ref Range Beta-Hydroxybutyrate 1.4 (H) <=0.5 mmol/L eGFR Collection Time: 05/17/21 9:53 AM Result Value Ref Range eGFR 63 mL/min/1.73 m2 POCT glucose Collection Time: 05/17/21 12:27 PM Result Value Ref Range Glucose, POC 299 (H) 70 - 199 mg/dL POCT glucose Collection Time: 05/17/21 1:32 PM Result Value Ref Range Glucose, POC 245 (H) 70 - 199 mg/dL POCT glucose Collection Time: 05/17/21 2:47 PM Result Value Ref Range Glucose, POC 176 70 - 199 mg/dL Basic metabolic panel Collection Time: 05/17/21 2:49 PM Result Value Ref Range Sodium 130 (L) 135 - 145 mmol/L Potassium, pl 3.5 3.3 - 4.9 mmol/L Chloride 92 (L) 97 - 110 mmol/L CO2 21 (L) 22 - 32 mmol/L Anion gap 17 (H) 2 - 15 mmol/L BUN 36 (H) 8 - 25 mg/dL Creatinine 1.65 (H) 0.80 - 1.30 mg/dL Glucose 180 70 - 199 mg/dL Calcium 8.4 (L) 8.5 - 10.3 mg/dL Magnesium Collection Time: 05/17/21 2:49 PM Result Value Ref Range Magnesium 3.3 (H) 1.4 - 2.5 mg/dL eGFR Collection Time: 05/17/21 2:49 PM Result Value Ref Range eGFR 45 mL/min/1.73 m2 POCT glucose Collection Time: 05/17/21 3:54 PM Result Value Ref Range Glucose, POC 134 70 - 199 mg/dL POCT glucose Collection Time: 05/17/21 5:00 PM Result Value Ref Range Glucose, POC 115 70 - 199 mg/dL POCT glucose Collection Time: 05/17/21 6:04 PM Result Value Ref Range Glucose, POC 148 70 - 199 mg/dL POCT glucose Collection Time: 05/17/21 6:51 PM Result Value Ref Range Glucose, POC 216 (H) 70 - 199 mg/dL POCT glucose Collection Time: 05/17/21 7:38 PM Result Value Ref Range Glucose, POC 195 70 - 199 mg/dL POCT glucose Collection Time: 05/17/21 8:42 PM Result Value Ref Range Glucose, POC 172 70 - 199 mg/dL Basic metabolic panel Collection Time: 05/17/21 9:35 PM Result Value Ref Range Sodium 130 (L) 135 - 145 mmol/L Potassium, pl 3.6 3.3 - 4.9 mmol/L Chloride 94 (L) 97 - 110 mmol/L CO2 21 (L) 22 - 32 mmol/L Anion gap 15 2 - 15 mmol/L BUN 43 (H) 8 - 25 mg/dL Creatinine 1.63 (H) 0.80 - 1.30 mg/dL Glucose 140 70 - 199 mg/dL Calcium 8.4 (L) 8.5 - 10.3 mg/dL eGFR Collection Time: 05/17/21 9:35 PM Result Value Ref Range eGFR 45 mL/min/1.73 m2 POCT glucose Collection Time: 05/17/21 9:45 PM Result Value Ref Range Glucose, POC 193 70 - 199 mg/dL POCT glucose Collection Time: 05/17/21 10:50 PM Result Value Ref Range Glucose, POC 82 70 - 199 mg/dL POCT glucose Collection Time: 05/17/21 11:55 PM Result Value Ref Range Glucose, POC 106 70 - 199 mg/dL POCT glucose Collection Time: 05/18/21 1:00 AM Result Value Ref Range Glucose, POC 111 70 - 199 mg/dL POCT glucose Collection Time: 05/18/21 2:03 AM Result Value Ref Range Glucose, POC 108 70 - 199 mg/dL XR Chest 1 View Result Date: 05/17/2021 Mild vascular congestion. Electronically signed by: Elvira Blackman M.D. XR Chest 1 Vw Portable Result Date: 05/17/2021 No change from previous. Electronically signed by: Humphrey Mojica M.D. XR Chest 1 Vw Portable Result Date: 05/17/2021 1. Status post median sternotomy. 2. Right jugular venous catheter in place. 3. Pulmonary vascular congestion. 4. Mild infiltrate in the left lower lobe and possible small left pleural effusion. Electronically signed by: Humphrey Mojica M.D. XR Chest 1 View Result Date: 05/16/2021 No change from previous. Electronically signed by: Humphrey Mojica M.D. Plan: Neuro: #Acute pain - Tylenol #Insomnia - Seroquel CV: #Severe multivessel CAD s/p CABG #STEMI #HFrEF, chronic - S/p CABG by MD Granados - CCL (04/30) -> in-stent restenosis, unsuccessful angioplasty, IABP placed - ASA/Atorvastatin, holding plavix - Unable to tolerate ACEi or BB at this time - Cardiology following - CTS following - Lasix infusion /Metolazone - TTE pending read #Possible cardiogenic shock - ScVO2 57 -> 83 - Active titration of NE for MAP > 65 - Lactate 1.7 - TTE pending Pulmonary: #Acute respiratory insufficiency 2/2 #Pulmonary edema - Increasing O2 overnight -> up to 15L/NC - Aggressive pulmonary hygiene, IS, OOBTC in am - Lasix infusion at 10/Metolazone - Maintain sats> 92% - CXR with continued edema and possible infiltrate - Zosyn completed GI: Diet: Heart healthy PUD PPx: Pantoprazole Bowel regimen: Docusate Endo: #Hyperglycemia, likely 2/2 stress response - Glycemic control - insulin gtt - Frequent accuchecks - Endocrine following Renal: - BUN/Cr 43/1.63 - Lasix infusion/Metolazone - UOP 1.4 ml/kg/hr - FBG net negative - trend renal function, avoid nephrotoxins, renal dose medications - optimize electrolytes with caution to renal function -goal K ~4, Mg > 2.2, phos > 3, iCAL > 4.5 -provide supplement as needed -AM BMP and electrolytes check #Hematuria 07/22 #Bladder tumor - (05/14) Cystoscopy for clot evacuation and cessation of bleeding sites - Osorio removed that night - Per urology, do not place osorio - Will need Urology to see in am as he has not voided this evening - Bladder scan - Urology following - Flomax started Heme: #ABLA 07/22 surgery - H/H 11.3/33.8 - No active signs of bleeding - Transfuse for hgb < 8 - CBC in am DVT PPX: SCD's/Lovenox ID: - WBC: 8.7 - Tmax: 36.9 - CBC in am - CXR in am for evaluation of lung escamilla - Trend WBC and fever curve ICU standards of care: Physical therapy/Activity: PT/OT Access: RIJ introducer (05/04) Goals of care: Full code Community PM Assessment and plan has been reviewed with attending, MD Sushila Kelly, [facility] [phone], [place] 1 Critical Care Medicine [facility] ICU standards of care: Restraints: N/A Physical Therapy/Activity: PT Ordered/ To chair TID Access: RIJ Introducer Other: Goals of care: Full code Community AM Assessment and plan has been reviewed with attending, Dr. German Kelly, [employer] [phone], [place] , [place] 2 Critical Care Medicine [facility] Cosigned by Jose Conti MD at 05/18/2021 6:21 AM STAFF FORESTER F FORESTER F FORESTER * Sixto Fish MD - 05/17/2021 5:41 PM CST Endocrine Diabetes Follow up Note Reason for Consult: Blood glucose management s/p CABG CC: DM Interval History: Patient moved into ICU today due to worsening oxygen requirements Patient also needed a small dose of pressor support this morning Also was on Lasix drip Currently patient oxygen requirements are coming down Off of Levophed Objective Vitals: Most Recent : Vitals: 05/17/21 1315 05/17/21 1415 05/17/21 1515 05/17/21 1715 BP: 112/73 132/73 101/68 (!) 82/61 BP Location: Patient Position: Pulse: 91 79 94 97 Resp: Temp: TempSrc: SpO2: 94% 90% 91% 98% Weight: Height: Physical Exam: Physical Exam HENT: Head: Normocephalic and atraumatic. Eyes: Conjunctiva/sclera: Conjunctivae normal. Neck: Thyroid: No thyromegaly. Cardiovascular: Rate and Rhythm: Normal rate and regular rhythm. Heart sounds: Normal heart sounds. Pulmonary: Effort: Pulmonary effort is normal. Breath sounds: Normal breath sounds. Abdominal: General: Bowel sounds are normal. Palpations: Abdomen is soft. Tenderness: There is no abdominal tenderness. Musculoskeletal: Right lower leg: No edema. Left lower leg: No edema. Skin: General: Skin is warm and dry. Neurological: Mental Status: He is alert and oriented to person, place, and time. Psychiatric: Thought Content: Thought content normal. Judgment: Judgment normal. Lab/Radiology/Diagnostic Review: Reviewed. Recent Results (from the past 48 hour(s)) POCT glucose Collection Time: 05/15/21 8:42 PM Result Value Ref Range Glucose, POC 177 70 - 199 mg/dL POCT glucose Collection Time: 05/16/21 2:43 AM Result Value Ref Range Glucose, POC 95 70 - 199 mg/dL Basic metabolic panel Collection Time: 05/16/21 5:42 AM Result Value Ref Range Sodium 132 (L) 135 - 145 mmol/L Potassium, pl 3.8 3.3 - 4.9 mmol/L Chloride 101 97 - 110 mmol/L CO2 20 (L) 22 - 32 mmol/L Anion gap 11 2 - 15 mmol/L BUN 22 8 - 25 mg/dL Creatinine 0.68 (L) 0.80 - 1.30 mg/dL Glucose 96 70 - 199 mg/dL Calcium 8.1 (L) 8.5 - 10.3 mg/dL Phosphorus Collection Time: 05/16/21 5:42 AM Result Value Ref Range Phosphorus, pl 3.2 2.3 - 4.5 mg/dL Magnesium Collection Time: 05/16/21 5:42 AM Result Value Ref Range Magnesium 2.0 1.4 - 2.5 mg/dL CBC without differential Collection Time: 05/16/21 5:42 AM Result Value Ref Range WBC 6.2 3.8 - 9.9 K/cumm Hgb 9.9 (L) 13.0 - 17.5 g/dL Hct 30.8 (L) 38.9 - 50.3 % Plt 241 150 - 400 K/cumm MPV 11.7 9.1 - 12.3 fL RBC 3.34 (L) 4.30 - 5.80 M/cumm MCV 92.2 81.3 - 96.4 fL MCH 29.6 27.1 - 33.3 pg MCHC 32.1 (L) 32.3 - 35.7 g/dL RDW CV 13.4 11.1 - 14.9 % RDW SD 45.6 35.7 - 48.1 fL NRBC abs 0.00 0.00 - 0.01 K/cumm eGFR Collection Time: 05/16/21 5:42 AM Result Value Ref Range eGFR 105 mL/min/1.73 m2 POCT glucose Collection Time: 05/16/21 7:51 AM Result Value Ref Range Glucose, POC 135 70 - 199 mg/dL POCT glucose Collection Time: 05/16/21 12:54 PM Result Value Ref Range Glucose, POC 114 70 - 199 mg/dL POCT glucose Collection Time: 05/16/21 6:10 PM Result Value Ref Range Glucose, POC 104 70 - 199 mg/dL POCT glucose Collection Time: 05/16/21 8:47 PM Result Value Ref Range Glucose, POC 142 70 - 199 mg/dL POCT glucose Collection Time: 05/16/21 10:45 PM Result Value Ref Range Glucose, POC 131 70 - 199 mg/dL POCT glucose Collection Time: 05/17/21 2:01 AM Result Value Ref Range Glucose, POC 135 70 - 199 mg/dL Blood gas, arterial Collection Time: 05/17/21 2:20 AM Result Value Ref Range pH, Art 7.50 (H) 7.35 - 7.45 PCO2, Arterial 27 (L) 35 - 45 mmHg PO2, Arterial 72 (L) 83 - 108 mmHg HCO3 Art (Calculated) 24 20 - 30 mmol/L BE, art -2 mmol/L O2 Sat Art (Measured) 96 (H) 90 - 95 % POCT glucose Collection Time: 05/17/21 2:21 AM Result Value Ref Range Glucose, POC 139 70 - 199 mg/dL Comprehensive metabolic panel Collection Time: 05/17/21 3:33 AM Result Value Ref Range Sodium 133 (L) 135 - 145 mmol/L Potassium, pl 2.6 (Critical) 3.3 - 4.9 mmol/L Chloride 92 (L) 97 - 110 mmol/L CO2 22 22 - 32 mmol/L Anion gap 19 (H) 2 - 15 mmol/L BUN 25 8 - 25 mg/dL Creatinine 1.06 0.80 - 1.30 mg/dL Glucose 157 70 - 199 mg/dL Calcium 8.3 (L) 8.5 - 10.3 mg/dL Bilirubin, total 0.7 0.1 - 1.2 mg/dL Protein, pl 7.3 6.5 - 8.5 g/dL Albumin 3.5 3.5 - 5.0 g/dL Alk phos 94 40 - 130 Units/L ALT 20 7 - 55 Units/L AST 64 (H) 10 - 50 Units/L Calcium, ionized Collection Time: 05/17/21 3:33 AM Result Value Ref Range Ca, ionized, bld 4.42 (L) 4.60 - 5.20 mg/dL Ca, ionized, bld, calc 4.44 (L) 4.60 - 5.20 mg/dL Magnesium Collection Time: 05/17/21 3:33 AM Result Value Ref Range Magnesium 1.7 1.4 - 2.5 mg/dL Phosphorus Collection Time: 05/17/21 3:33 AM Result Value Ref Range Phosphorus, pl 4.4 2.3 - 4.5 mg/dL CBC with auto differential Collection Time: 05/17/21 3:33 AM Result Value Ref Range WBC 8.7 3.8 - 9.9 K/cumm Hgb 11.3 (L) 13.0 - 17.5 g/dL Hct 33.8 (L) 38.9 - 50.3 % Plt 267 150 - 400 K/cumm MPV 12.1 9.1 - 12.3 fL RBC 3.76 (L) 4.30 - 5.80 M/cumm MCV 89.9 81.3 - 96.4 fL MCH 30.1 27.1 - 33.3 pg MCHC 33.4 32.3 - 35.7 g/dL RDW CV 13.3 11.1 - 14.9 % RDW SD 43.8 35.7 - 48.1 fL NRBC abs 0.00 0.00 - 0.01 K/cumm Differential, auto Collection Time: 05/17/21 3:33 AM Result Value Ref Range Neutrophil abs 6.8 (H) 1.7 - 6.5 K/cumm Imm gran abs 0.1 0.0 - 0.1 K/cumm Lymphocyte abs 1.0 0.8 - 3.3 K/cumm Monocyte abs 0.8 0.2 - 0.8 K/cumm Eosinophil abs 0.0 0.0 - 0.5 K/cumm Basophil abs 0.0 0.0 - 0.1 K/cumm Neutrophil pct 78.4 % Imm gran pct 0.6 % Lymphocyte pct 11.7 % Monocyte pct 9.0 % Eosinophil pct 0.1 % Basophil pct 0.2 % eGFR Collection Time: 05/17/21 3:33 AM Result Value Ref Range eGFR 76 mL/min/1.73 m2 Oxyhemoglobin, central venous Collection Time: 05/17/21 3:43 AM Result Value Ref Range Oxyhemoglobin, CV 57.0 % Oxyhemoglobin, central venous Collection Time: 05/17/21 4:50 AM Result Value Ref Range Oxyhemoglobin, CV 83.8 % POCT glucose Collection Time: 05/17/21 9:36 AM Result Value Ref Range Glucose, POC 268 (H) 70 - 199 mg/dL Basic metabolic panel Collection Time: 05/17/21 9:53 AM Result Value Ref Range Sodium 129 (L) 135 - 145 mmol/L Potassium, pl 3.6 3.3 - 4.9 mmol/L Chloride 89 (L) 97 - 110 mmol/L CO2 21 (L) 22 - 32 mmol/L Anion gap 19 (H) 2 - 15 mmol/L BUN 32 (H) 8 - 25 mg/dL Creatinine 1.24 0.80 - 1.30 mg/dL Glucose 343 (H) 70 - 199 mg/dL Calcium 8.4 (L) 8.5 - 10.3 mg/dL Lactate Collection Time: 05/17/21 9:53 AM Result Value Ref Range Lactate 1.7 0.7 - 2.0 mmol/L eGFR Collection Time: 05/17/21 9:53 AM Result Value Ref Range eGFR 63 mL/min/1.73 m2 POCT glucose Collection Time: 05/17/21 12:27 PM Result Value Ref Range Glucose, POC 299 (H) 70 - 199 mg/dL POCT glucose Collection Time: 05/17/21 1:32 PM Result Value Ref Range Glucose, POC 245 (H) 70 - 199 mg/dL POCT glucose Collection Time: 05/17/21 2:47 PM Result Value Ref Range Glucose, POC 176 70 - 199 mg/dL Basic metabolic panel Collection Time: 05/17/21 2:49 PM Result Value Ref Range Sodium 130 (L) 135 - 145 mmol/L Potassium, pl 3.5 3.3 - 4.9 mmol/L Chloride 92 (L) 97 - 110 mmol/L CO2 21 (L) 22 - 32 mmol/L Anion gap 17 (H) 2 - 15 mmol/L BUN 36 (H) 8 - 25 mg/dL Creatinine 1.65 (H) 0.80 - 1.30 mg/dL Glucose 180 70 - 199 mg/dL Calcium 8.4 (L) 8.5 - 10.3 mg/dL Magnesium Collection Time: 05/17/21 2:49 PM Result Value Ref Range Magnesium 3.3 (H) 1.4 - 2.5 mg/dL eGFR Collection Time: 05/17/21 2:49 PM Result Value Ref Range eGFR 45 mL/min/1.73 m2 POCT glucose Collection Time: 05/17/21 3:54 PM Result Value Ref Range Glucose, POC 134 70 - 199 mg/dL POCT glucose Collection Time: 05/17/21 5:00 PM Result Value Ref Range Glucose, POC 115 70 - 199 mg/dL Lab Results Component Value Date HGBA1C 13.5 (H) 05/03/2021 Assessment/Recommendations: 1. Uncontrolled type 2 diabetes mellitus complicated by hyperglycemia post CABG ?? Poor oral intake Due to acute change in patient medical condition today, and worsening hyperglycemia with switch patient to insulin drip with glucose stabilizer Patient blood sugars are stabilized Continue insulin drip overnight and possible transition to subcu insulin regimen tomorrow am if patient medical condition progressively continues to improve Pt currently off pressors 2. Acute on chronic respiratory failure, on 4 L of oxygen supplementation 3. Acute on chronic kidney disease as per renal 2. STEMI : s/p stent, s/p cabg 3. HLD on statin therapy Dr. Leblanc Will continue to follow pt from tomorrow am Sixto Hurtado MD 05/17/2021 F FORESTER F FORESTER * Yves Weinberg MD - 05/17/2021 1:46 PM CST Nephrology Progress Note [facility] SUBJECTIVE 05/17 Transferred to ICU for hi O2 requirements. Has left nostril epistaxis. On low dose pressors and lasix and insulin drip. Na 128, should improve with loop diuresis. Cr 1.2. 05/16 Creatinine stable and sodium trending up.On IV lasix,lytes wnl.Osorio out,having some problems with retention- nurses in contact with urology,doing bladder scans. 05/15/21 Doing fair. Osorio out. Has not voided yet. Na 131 with loop diuresis and improved. All labs and data reviewed. Excellent UO. Doing fair. Some flank pain and mild dyspnea. Na 127 and a little lower. BP better. Agreeable to cysto, but urology planning on conservative tx. Will start loop diuresis. OBJECTIVE Vitals: Vitals: 05/17/21 1040 05/17/21 1100 05/17/21 1245 05/17/21 1315 BP: 93/58 100/68 112/73 BP Location: Patient Position: Pulse: 103 94 99 91 Resp: 26 23 (!) 31 25 Temp: 36.4 ??C (97.5 ??F) TempSrc: Oral SpO2: 94% 98% 94% 94% Weight: Height: Intake/Output Summary (Last 24 hours) at 05/17/2021 1346 Last data filed at 05/17/2021 0900 Gross per 24 hour Intake 1591 ml Output 3150 ml Net -1559 ml REVIEW OF SYSTEMS Review of Systems Epistaxis, dyspnea. Constitutional: Negative. HENT: Negative. Eyes: Negative. Respiratory: Negative. Cardiovascular: Negative. Gastrointestinal: Negative. Genitourinary: Negative. Musculoskeletal: Negative. Skin: Negative. Allergic/Immunologic: Negative. Hematological: Negative. All other systems reviewed and are negative. PHYSICAL EXAM Physical Exam Constitutional: Appears well-developed. O2 on HENT: wnl Head: Normocephalic. Eyes: Pupils are equal, round, and reactive to light. Neck: Normal range of motion. Neck supple. Cardiovascular: Normal rate. Pulmonary/Chest: Effort normal and breath sounds normal. Abdominal: Soft. NT,active BS Musculoskeletal: Normal range of motion. Neurological: Alert, oriented. Skin: Skin is warm. Nursing note and vitals reviewed. MEDICATIONS Current Facility-Administered Medications: ??? acetaminophen (TYLENOL) tablet 650 mg, 650 mg, oral, Q6H PRN, Eleonora Duarte NP, 650 mg at 05/17/21 0940 ? ? al & mag hydroxide uigwxtmggjw-pnpshpzcvychest-obyjrflqj-nystatin (MAGIC MOUTHWASH) suspension 1-1-1-1, 20 mL, swish & spit, Q4H PRN, Tiana Spence NP, 20 mL at 05/12/21 1457 ??? albuterol 2.5 mg /3 mL (0.083 %) nebulizer solution 2.5 mg, 2.5 mg, nebulization, Q4H PRN (RT),Ralf Tomlinson MD, 2.5 mg at 05/17/21 0224 ??? aspirin enteric coated tablet 81 mg, 81 mg, oral, Daily, Varsha Crowder NP, 81 mg at 05/17/21 0937 ??? atorvastatin (LIPITOR) tablet 80 mg, 80 mg, oral, Nightly, Rhina Granados MD, 80 mg at 05/16/212032 ??? dextrose (D10W) 10% bolus 1-500 mL, 1-500 mL, intravenous, PRN, Bryant Hurtado, Sixto Hurtado MD ??? dextrose oral liquid liquid 15 g, 15 g, oral, Q15 Min PRN OR dextrose (D10W) 10% bolus 250 mL, 250 mL, intravenous, Q15 Min PRN, Anibal Lara MD ??? docusate sodium (COLACE) capsule 100 mg, 100 mg, oral, BID, 100 mg at 05/17/21 0937 OR [DISCONTINUED] docusate (COLACE) 10 mg/mL oral liquid 100 mg, 100 mg, feeding tube, BID, Rhina Granados MD, 100 mg at 05/05/21 0842 ??? enoxaparin (LOVENOX) syringe 40 mg, 40 mg, subcutaneous, Daily-2100, Rhina Granados MD, 40 mg at 05/16/212032 ??? furosemide (LASIX) 200 mg in sodium chloride 0.9% 100 mL (2 mg/mL) infusion, 10 mg/hr, intravenous, Continuous, MarianneLaly suazo MD, Last Rate: 5 mL/hr at 05/17/21 1300, 10 mg/hr at 05/17/21 1300 ??? glucagon injection 1 mg, 1 mg, intramuscular, Q30 Min PRN, Anibal Lara MD ??? insulin regular bolus from bag 1-10 Units, 1-10 Units, intravenous, PRN, Sixto Fish MD ??? insulin regular in 0.9% sodium chloride 100 units/100 mL infusion (premix), 0-30 Units/hr, intravenous, Titrated, Sixto Fish MD, Last Rate: 5.6 mL/hr at 05/17/21 1300, 5.6 Units/hr at 05/17/21 1300 ??? metOLazone (ZAROXOLYN) tablet 10 mg, 10 mg, oral, BID DIURETIC, Jose Conti MD, 10 mg at 05/17/21 0937 ??? [Held by Provider] metoprolol tartrate (LOPRESSOR) immediate release tablet 12.5 mg, 12.5 mg, oral, BID, Eleonora Duarte NP, 12.5 mg at 05/16/21 0909 ??? midodrine (PROAMATINE) tablet 10 mg, 10 mg, oral, Q6H, Rhina Grandaos, MD ??? norepinephrine in 0.9% sodium chloride (LEVOPHED) 8,000 mcg/250 mL (32 mcg/mL) infusion (premix), 0-2 mcg/kg/min, intravenous, Titrated, Jose Conti MD, Last Rate: 2.96 mL/hr at 05/17/21 1300,0.02 mcg/kg/min at 05/17/21 1300 ??? ondansetron (ZOFRAN) injection 4 mg, 4 mg, intravenous, Q6H PRN, Rhina Granados MD ??? pantoprazole DR (PROTONIX) extended release tablet 40 mg, 40 mg, oral, Daily, Rhina Granados MD, 40 mg at 05/17/21 0937 ??? polyethylene glycol (MIRALAX) packet 17 g, 17 g, oral, Daily PRN, Rhina Granados MD ??? potassium chloride 20 mEq/50 mL in sterile water (premix) 20 mEq, 20 mEq, intravenous, Once, Rhina Granados MD ??? potassium chloride 40 mEq/100 mL in sterile water (premix) 40 mEq, 40 mEq, intravenous, Q4H, Laly Lopes MD, Last Rate: 25 mL/hr at 05/17/21 1110, 40 mEq at 05/17/21 1110 ??? QUEtiapine (SEROquel) tablet 25 mg, 25 mg, oral, Nightly, Rhina Granados MD ??? sodium chloride 0.9% flush 0.5-20 mL, 0.5-20 mL, intra-catheter, Q8H LEAH, Rhina Granados MD, 10 mL at 05/17/21 1238 Lab/Radiology/Diagnostic Review: Recent Results (from the past 24 hour(s)) POCT glucose Collection Time: 05/16/21 6:10 PM Result Value Ref Range Glucose, POC 104 70 - 199 mg/dL POCT glucose Collection Time: 05/16/21 8:47 PM Result Value Ref Range Glucose, POC 142 70 - 199 mg/dL POCT glucose Collection Time: 05/16/21 10:45 PM Result Value Ref Range Glucose, POC 131 70 - 199 mg/dL POCT glucose Collection Time: 05/17/21 2:01 AM Result Value Ref Range Glucose, POC 135 70 - 199 mg/dL Blood gas, arterial Collection Time: 05/17/21 2:20 AM Result Value Ref Range pH, Art 7.50 (H) 7.35 - 7.45 PCO2, Arterial 27 (L) 35 - 45 mmHg PO2, Arterial 72 (L) 83 - 108 mmHg HCO3 Art (Calculated) 24 20 - 30 mmol/L BE, art -2 mmol/L O2 Sat Art (Measured) 96 (H) 90 - 95 % POCT glucose Collection Time: 05/17/21 2:21 AM Result Value Ref Range Glucose, POC 139 70 - 199 mg/dL Comprehensive metabolic panel Collection Time: 05/17/21 3:33 AM Result Value Ref Range Sodium 133 (L) 135 - 145 mmol/L Potassium, pl 2.6 (Critical) 3.3 - 4.9 mmol/L Chloride 92 (L) 97 - 110 mmol/L CO2 22 22 - 32 mmol/L Anion gap 19 (H) 2 - 15 mmol/L BUN 25 8 - 25 mg/dL Creatinine 1.06 0.80 - 1.30 mg/dL Glucose 157 70 - 199 mg/dL Calcium 8.3 (L) 8.5 - 10.3 mg/dL Bilirubin, total 0.7 0.1 - 1.2 mg/dL Protein, pl 7.3 6.5 - 8.5 g/dL Albumin 3.5 3.5 - 5.0 g/dL Alk phos 94 40 - 130 Units/L ALT 20 7 - 55 Units/L AST 64 (H) 10 - 50 Units/L Calcium, ionized Collection Time: 05/17/21 3:33 AM Result Value Ref Range Ca, ionized, bld 4.42 (L) 4.60 - 5.20 mg/dL Ca, ionized, bld, calc 4.44 (L) 4.60 - 5.20 mg/dL Magnesium Collection Time: 05/17/21 3:33 AM Result Value Ref Range Magnesium 1.7 1.4 - 2.5 mg/dL Phosphorus Collection Time: 05/17/21 3:33 AM Result Value Ref Range Phosphorus, pl 4.4 2.3 - 4.5 mg/dL CBC with auto differential Collection Time: 05/17/21 3:33 AM Result Value Ref Range WBC 8.7 3.8 - 9.9 K/cumm Hgb 11.3 (L) 13.0 - 17.5 g/dL Hct 33.8 (L) 38.9 - 50.3 % Plt 267 150 - 400 K/cumm MPV 12.1 9.1 - 12.3 fL RBC 3.76 (L) 4.30 - 5.80 M/cumm MCV 89.9 81.3 - 96.4 fL MCH 30.1 27.1 - 33.3 pg MCHC 33.4 32.3 - 35.7 g/dL RDW CV 13.3 11.1 - 14.9 % RDW SD 43.8 35.7 - 48.1 fL NRBC abs 0.00 0.00 - 0.01 K/cumm Differential, auto Collection Time: 05/17/21 3:33 AM Result Value Ref Range Neutrophil abs 6.8 (H) 1.7 - 6.5 K/cumm Imm gran abs 0.1 0.0 - 0.1 K/cumm Lymphocyte abs 1.0 0.8 - 3.3 K/cumm Monocyte abs 0.8 0.2 - 0.8 K/cumm Eosinophil abs 0.0 0.0 - 0.5 K/cumm Basophil abs 0.0 0.0 - 0.1 K/cumm Neutrophil pct 78.4 % Imm gran pct 0.6 % Lymphocyte pct 11.7 % Monocyte pct 9.0 % Eosinophil pct 0.1 % Basophil pct 0.2 % eGFR Collection Time: 05/17/21 3:33 AM Result Value Ref Range eGFR 76 mL/min/1.73 m2 Oxyhemoglobin, central venous Collection Time: 05/17/21 3:43 AM Result Value Ref Range Oxyhemoglobin, CV 57.0 % Oxyhemoglobin, central venous Collection Time: 05/17/21 4:50 AM Result Value Ref Range Oxyhemoglobin, CV 83.8 % POCT glucose Collection Time: 05/17/21 9:36 AM Result Value Ref Range Glucose, POC 268 (H) 70 - 199 mg/dL Basic metabolic panel Collection Time: 05/17/21 9:53 AM Result Value Ref Range Sodium 129 (L) 135 - 145 mmol/L Potassium, pl 3.6 3.3 - 4.9 mmol/L Chloride 89 (L) 97 - 110 mmol/L CO2 21 (L) 22 - 32 mmol/L Anion gap 19 (H) 2 - 15 mmol/L BUN 32 (H) 8 - 25 mg/dL Creatinine 1.24 0.80 - 1.30 mg/dL Glucose 343 (H) 70 - 199 mg/dL Calcium 8.4 (L) 8.5 - 10.3 mg/dL Lactate Collection Time: 05/17/21 9:53 AM Result Value Ref Range Lactate 1.7 0.7 - 2.0 mmol/L eGFR Collection Time: 05/17/21 9:53 AM Result Value Ref Range eGFR 63 mL/min/1.73 m2 POCT glucose Collection Time: 05/17/21 12:27 PM Result Value Ref Range Glucose, POC 299 (H) 70 - 199 mg/dL POCT glucose Collection Time: 05/17/21 1:32 PM Result Value Ref Range Glucose, POC 245 (H) 70 - 199 mg/dL XR Chest 1 View - Portable - in AM Result Date: 05/11/2021 Narrative: EXAMINATION: XR CHEST 1 VIEW HISTORY: The patient is a 60-year-old male who has had cardiac surgery. Comparison made with the previous study dated 05/10/2021. TECHNIQUE: AP portable view of the chest. FINDINGS: Lungs clear. Heart not enlarged. Aortic atherosclerosis. No failure. The right IJ [place] catheter has been retracted with its tip in the distal superior vena cava. Impression: IMPRESSION: No failure. Electronically signed by: Elvira Blackman M.D. XR Chest 1 View - Portable - in AM Result Date: 05/10/2021 Narrative: EXAMINATION: XR CHEST 1 VIEW DATE: 05/10/2021 2:40 AM COMPARISON: 05/09/2021 HISTORY: 60-year-old man cardiac surgery follow-up FINDINGS:Compared with study the previous day, significant improvement. There is cardiomegaly with postsurgical changes with continued and decreasing failure. Bibasilar atelectasis with left pleural fluid decreasing. No pneumothorax. [place] catheter remainsin place Impression: Decreasing failure, atelectasis and left effusion. Electronically signed by: Deandre Lomeli M.D. XR Chest 1 View - Portable - in AM Result Date: 05/09/2021 Narrative: EXAMINATION: XR CHEST 1 VIEW DATE: 05/09/2021 4:10 AM HISTORY: 60-year-old man cardiac surgery follow-up FINDINGS:Compared with study the previous day, significant improvement. There is cardiomegaly with postsurgical changes with continued but decreasing failure. Bibasilar atelectasis with left pleural fluid decreasing. No pneumothorax. [place] catheter remains in place Impression: Decreasing failure, atelectasis and left effusion. Electronically signed by: Deandre Lomeli M.D. XR Chest 1 View - Portable - in AM Result Date: 05/08/2021 Narrative: EXAMINATION: XR CHEST 1 VIEW DATE: 05/08/2021 4:15 AM HISTORY: 60-year-old man cardiac surgery follow-up FINDINGS:Compared with study the previous day, significant improvement. There is cardiomegaly with postsurgical changes with continued but decreasing failure. Bibasilar atelectasis with left pleural fluid. No pneumothorax. [place] catheter remains in place Impression: Decreasing failure. No pneumothorax. Electronically signed by: Deacon Cummings M.D. XR Chest 1 View - Portable - in AM Result Date: 05/07/2021 Narrative: EXAMINATION: XR CHEST 1 VIEW DATE: 05/07/2021 3:55 AM HISTORY: 60-year-old man follow-upcardiac surgery FINDINGS:Compared with study of the previous day, postsurgical changes in the heartand mediastinum with cardiomegaly are stable. [place] catheter remains in place. Left thoracostomy tube remains in place. No pneumothorax. Pulmonary vascular congestion with interstitial lung disease remain prominent. Impression: Persistent prominent interstitial lung disease with failure. Electronically signed by: Deacon Cummings M.D. XR Chest 1 View - Portable - in AM Result Date: 05/06/2021 Narrative: EXAMINATION: XR CHEST 1 VIEW DATE: 05/06/2021 4:05 AM INDICATION: Cardiac surgery. COMPARISON: 05/05/2021. FINDINGS: No pneumothorax or pleural effusion. Similar-appearing pulmonary vascular congestion and interstitial opacities most notable in the bilateral upper lobes consistent with pulmonary edema. Pulmonary catheter catheter, left thoracostomy tube, and mediastinal drain are appropriately position. Intra-aortic balloon pump is appropriately positioned. Interval removal of endotracheal tube. Impression: 1. Interval removal of endotracheal tube. Remaining tubes and lines are appropriately positioned. 2. Similar-appearing cardiomegaly, pulmonary vascular congestion, and prominent bilateralinterstitial markings suggestive of interstitial pulmonary edema. Electronically signed by: Richard Zhao II, D.O. XR Chest 1 View - Portable - in AM Result Date: 05/05/2021 Narrative: EXAMINATION: XR CHEST 1 VIEW DATE: 05/05/2021 4:15 AM HISTORY: 60-year-old man cardiac surgery follow-up FINDINGS:Compared with the study of the prior day, tubes and catheters remain satisfactorily positioned. Worsening pulmonary vascular congestive changes are seen. Cardiomegaly with postsurgical changes stable. No pneumothorax. Impression: Increasing failure. Electronically signed by: Deacon Cummings M.D. XR Chest 1 Vw Portable Result Date: 05/05/2021 Narrative: EXAMINATION: XR CHEST 1 VIEW DATE: 05/04/2021 8:40 PM HISTORY: 60-year-old man coronary artery bypass follow-up FINDINGS:Compared with the study of earlier the same day, postsurgical changes now evident within the heart and mediastinum with cardiomegaly. Interval placement of endotracheal tube, nasogastric tube, [place] catheter, left thoracostomy tube and mediastinal drain all in satisfactory position. No pneumothorax. Interstitial lung disease with mild pulmonary vascular congestive changes. Aortic balloon pump is no longer seen. Impression: Tube placements with postsurgical changes with cardiomegaly with interstitial lung disease and mild failure with no pneumothorax. Electronically signed by: Deacon Cummings M.D. XR Chest 1 Vw Portable Result Date: 05/04/2021 Narrative: EXAMINATION: XR CHEST 1 VIEW DATE: 05/04/2021 9:05 AM HISTORY: Coronary artery disease FINDINGS:Comparison is made with study of 2 days earlier. Cardiomegaly, COPD with interstitial lung disease stable. Mild failure. Aortic balloon pump stable in position at the proximal descending aorta. No pneumothorax. No new infiltrates. Impression: Stable appearance. COPD cardiomegaly, with mild failure suspected. Electronically signed by: Deacon Cummings M.D. XR Chest 1 Vw Portable Result Date: 05/02/2021 Narrative: EXAMINATION: XR CHEST 1 VIEW DATE: 05/02/2021 5:15 AM INDICATION: Intra-aortic balloon pump. COMPARISON: 05/01/2021. FINDINGS: Appropriately positioned intra-aortic balloon pump appears unchanged. No pneumothorax or pleural effusion. Mixed reticular and alveolar opacities demonstrated inall lung lobes appear most significant in the upper lobes and perihilar regions, unchanged. Impression: 1. Appropriately positioned intra-aortic balloon pump. 2. Similar mixed reticular and alveolar opacities most notable in the bilateral upper lobes and perihilar region. Electronically signed by: Richard Lopez II, D.O. XR Chest 1 Vw Portable Result Date: 05/02/2021 Narrative: EXAMINATION: XR CHEST 1 VIEW DATE: 05/01/2021 8:15 PM INDICATION: Hypoxia. COMPARISON: None. FINDINGS: No pneumothorax. No pleural effusion. Mixed reticular and alveolar opacities are demonstrated in all lung lobes but demonstrate an upper lobe and perihilar predominance. Findings may represent pulmonary edema on background of centrilobular emphysematous changes. Underlying infectious process not entirely excludable. Cardiac mediastinal silhouette is stable in appearance. No acute osseous abnormality. Impression: Mixed reticular and alveolar opacities are demonstrated in all lung lobes but demonstrate an upper lobe and perihilar predominance. Findings may represent pulmonary edema on background ofcentrilobular emphysematous changes. Electronically signed by: Richard Lopez II, D.O. Transthoracic Echo (TTE) Limited Result Date: 05/07/2021 Narrative: [place] [address] Limited Echocardiogram Report Patient Name: DEEPAK ALVARADO : 1960 StudyDate: 05/07/2021 12:16:52 PM Gender: M Tech: Location: [id number] Ref.Provider: RHINA GRANADOS Height(Cm): 175 BSA: 2.1 Weight(Kg): 91 Heart Rate: 82 BP: 127/44 Quality: Good Order Provider: Dr. Sutton Procedures: Echocardiographic Report: Limited transthoracic echocardiogram with 2D and M-Mode. Measurements: 2D/M Mode Measurement Value Normal Range LVIDd 2D 3.43 [ 4.20 -5.90 ] cm LVIDs 2D 2.59 [ 2.30 - 3.90 ] cm LVPWd 2D 1.01 [ 0.60 - 1.00 ] cm IVSd 2D 0.71 [ 0.60 - 0.90 ] cm Findings: Left Ventricle: Reduced left ventricular cavity size. Mild global left ventricular systolic dysfunction. Ejection fraction is measured at 42 %. These segments of the LV are hypokinetic: apical anterior segment. Pericardium: Trivial pericardial effusion. No echocardiographic evidence to suggest pericardial tamponade. Conclusions: Reduced left ventricular cavity size. Mild global left ventricular systolic dysfunction. Ejection fraction is measured at 42 %. These segments of the LV are hypokinetic: apical anterior segment. Trivial pericardial effusion. No echocardiographic evidence to suggest pericardial tamponade. Electronically Signed By: Gianni Francois MD, [facility] :54:09 STAFF FORESTER Transthoracic Echo Complete W Doppler/CF Result Date: 05/02/2021 Narrative: [place] [address] Echocardiogram Report Patient Name: DEEPAK ALVARADO W : 1960 Study Date: 05/02/2021 8:50:02 AM Gender: M Tech: Location: [place] [address] Ref Provider: NALINI CLAYTONHeight(Cm): 175 BSA: 2.11 Weight(Kg): 92 Heart Rate: 89 BP: 102/52 Quality: Good Order Provider: NALINI CLAYTON PROCEDURES: Echocardiographic Report: Transthoracic echocardiogram with complete 2D, M-Mode, and color Doppler examination. INDICATIONS: Free Text. Measurements: 2D/M Mode Doppler Measurement Value Normal Range Measurement Value Normal Range EF Teich 2D 30.0 [ 55.0 - 70.0 ] percent CHRISTINA Vmax 2.04 [ 2.00 - 4.00 ] cm2 EF Mod 4C 42.2 [ 55.0 - 70.0 ] percent AV Mean PG 5 [ 2 - 4 ] mmHg LVIDd 2D 4.54 [ 4.20 - 5.90 ] cm AV Peak Ramesh 1.54 [ 1.00 - 1.70 ] m/s LVIDs 2D 3.91 [ 2.30 - 3.90 ] cm AV VTI 26.93 cm LVPWd 2D 0.92 [ 0.60 - 1.00 ] cm LVOT Diam 2.20 [ 1.70 - 2.10 ] cm IVSd 2D 0.76 [ 0.60 - 0.90 ] cm LVOT Peak Ramesh 0.83 [ 0.70 - 1.10 ] m/s LA Dimension MM 5.08 [ 3.00 - 4.00 ] cm LVOT VTI 13.82 [ 20.00 - 30.00 ] cm AoR Diam MM 4.12 [ 2.60 - 3.70 ] cm MV E Peak Ramesh 0.85 [ 0.60 - 1.30 ] m/s LA Volume Index 20.83 [ 16.00 - 28.00 ] cc/m2 MV A Peak Ramesh 1.14 [ 1.00 - 1.20 ] m/s ACS MM 1.91 [ 1.50 - 2.60 ] cm MV Mean PG 1 [ <= 5 ] mmHg MV PHT 43 [ 20 - 100 ] msec MVA 2.20MV Decel Time 137 [ 104 - 258 ] msec PV Peak Ramesh 1.10 [ 0.40 - 0.80 ] m/s TR Peak Ramesh 1.32 [ 1.00 - 2.80 ] m/s TR Peak PG 7 mmHg RVSP 16.93 [ 10.00 - 36.00 ] mmHg E' 0.06 E/E' 14.00 Measurement Value Normal Range Measurement Value Normal Range 2D/M Mode Doppler - FINDINGS: Atrial Septum: Normal atrial septum. Left Ventricle: Normal left ventricular size. Left ventricle not well visualized. There is severe hypokinesis of the mid anteroseptal, anterior, and apical mancilla. Normal left ventricular wall thickness. Impaired diastolic relaxation Grade I. Ejection fraction is visually estimated at 40 %. Left Atrium: The left atrium is normal in size. Right Ventricle: Normal right ventricular size. Normal right ventricular systolic function. Right Atrium: The right atrium is normal in size. Aortic Valve: Normal structure of the aortic valve. No evidence of hemodynamically significant aortic stenosis by Doppler. No aortic regurgitation. Mitral Valve: Normal structure of the mitral valve. Tri vial regurgitation of the mitral valve. Pulmonic Valve: Pulmonic valve not well visualized. Trivialregurgitation in the pulmonic valve. Tricuspid Valve: Normal structure of the tricuspid valve. Trivial regurgitation in the tricuspid valve. Pericardium: Normal pericardium with no significant pericardial effusion. Aorta: Normal aortic root. IVC: Normal size and normal respiratory collapse consistent with normal right atrial pressure (<5 mmHg). CONCLUSIONS: Technically difficult study with limited views. Normal left ventricular size. Left ventricle not well visualized. There is severe hypokinesis of the mid anteroseptal, anterior, and apical mancilla. Normal left ventricular wall thickness. Impaired diastolic relaxation Grade I. Ejection fraction is visually estimated at 40 %. Normal right ventricular size. Normal right ventricular systolic function. Normal structure of the mitral valve. Trivial regurgitation of the mitral valve. Normal structure of the tricuspid valve. Trivial regurgitation in the tricuspid valve. Electronically Signed By: Rylee Brito, , FACC, VILMA, FAISAL 2021-05-02 14:07:25 STAFF FORESTER CC: CC: CC: ASSESSMENT/PLAN Hyponatremia from SIADH and possibly from zaroxylyn use. Work up for hyponatremia ongoing. PO FR. DC Zaroxylyn. No normotonic fluids yet. Urine lytes and osm. If in clinical fluid overload, can use tolvaptan. Renal fn is normal. Na better with loop diuresis, will continue. ?? Recent bladder tumor removal with hematuria. ?? -??Urology is following.H/H stable -Cysto vs conservative tx. -Voiding trial, hematuria has stopped. -Epistaxis Use nasal pillows. -CHF with decompensation Continue diuresis. RHC tomorrow. ?? Hypokalemia from diuresis. Replace PRN. ?? 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 ?? Syncopal episode -(+) orthostasis -receiving albumin -IV lasix was discontinued. ??There is a 1x order for zaroxolyn 10mg this am- recommend holding fornow. ??D/w RN ?? Coronary artery disease -s/p CABG post STEMI -??underwent four-vessel bypass ??MAE to the LAD, sequential saphenous vein graft to diagonal and obtuse marginal and a vein graft to the PDA. -s/p??low dose dobutamine -paced rhythm -??IV??diuretics??discontinued d/t syncopal episode today (see above) ?? Moderate LV dysfunction -s/p IV??lasix??and??low dose??dobutamine -Beta blockers, ??[place] once off dobutamine-would hold off adding given syncopal episode this am -repeat ECHO 05/07 EF 42% (see above) ?Nonsustained ventricular tachycardia -no recurrence of VT -K 3.7, Mg??2.0. ??Supplement to keep K >/= 4.0, Mg >/= 2.0 ?Diabetes mellitus -?on lantus and SSI ?? COPD: ?? -on?O2 NC??4L (dried blood to L nare humidified o2 ordered) ?? Dyslipidemia -?Continue atorvastatin. ?PAD -?Stable ? Anemia -Hb??11.4 (10.5)??(8.6) -monitor ?? I can be reached at [phone] with any concerns. Thank you Rhina Granados MD for the consult. Yves Weinberg MD [employer] [phone] F FORESTER * Vernon Boone MD - 05/17/2021 10:55 AM CST Daily Progress SUBJECTIVE: Pt transferred to icu for increased o2 requirements Sitting in chair at side of bed with head resting on table Denies chest pains OBJECTIVE: Vitals: 05/17/21 0620 05/17/21 0630 05/17/21 0640 05/17/21 0650 BP: 97/55 BP Location: Patient Position: Pulse: 104 97 102 108 Resp: 21 29 29 (!) 37 Temp: TempSrc: SpO2: 99% 98% 99% 95% Weight: Height: Intake/Output Summary (Last 24 hours) at 05/17/2021 1055 Last data filed at 05/17/2021 0558 Gross per 24 hour Intake 991 ml Output 2700 ml Net -1709 ml Scheduled Medications Medication Dose Route Frequency ??? aspirin enteric coated tablet 81 mg 81 mg oral Daily ??? atorvastatin (LIPITOR) tablet 80 mg 80 mg oral Nightly ??? docusate sodium (COLACE) capsule 100 mg 100 mg oral BID ??? enoxaparin (LOVENOX) syringe 40 mg 40 mg subcutaneous Daily-2100 ??? [Held by Provider] furosemide (LASIX) 10 mg/mL injection 40 mg 40 mg intravenous TID ??? guaiFENesin ER (MUCINEX) extended release tablet 600 mg 600 mg oral BID ??? metOLazone (ZAROXOLYN) tablet 10 mg 10 mg oral BID DIURETIC ??? [Held by Provider] metoprolol tartrate (LOPRESSOR) immediate release tablet 12.5 mg 12.5 mg oral BID ??? midodrine (PROAMATINE) tablet 10 mg 10 mg oral TID ??? pantoprazole DR (PROTONIX) extended release tablet 40 mg 40 mg oral Daily ??? polyethylene glycol (MIRALAX) packet 17 g 17 g oral BID ??? potassium chloride 20 mEq/50 mL in sterile water (premix) 20 mEq 20 mEq intravenous Once ??? potassium chloride 40 mEq/100 mL in sterile water (premix) 40 mEq 40 mEq intravenous Q4H ??? QUEtiapine (SEROquel) tablet 25 mg 25 mg oral Nightly ??? sodium chloride 0.9% flush 0.5-20 mL 0.5-20 mL intra-catheter Q8H [facility] LABS: Recent Labs Lab Units 05/17/21 0333 WBC K/cumm 8.7 HEMOGLOBIN g/dL 11.3* HEMATOCRIT % 33.8* PLATELETS K/cumm 267 Recent Labs Lab Units 05/17/21 0953 05/17/21 0936 05/17/21 0333 SODIUM mmol/L 129* -- 133* POTASSIUM PLASMA mmol/L 3.6 -- 2.6* CHLORIDE mmol/L 89* -- 92* CO2 mmol/L 21* -- 22 ANIONGAP mmol/L 19* -- 19* GLUCOSE mg/dL 343* -- 157 POC GLUCOSE MONITOR -- < > -- BUN SERUM mg/dL 32* -- 25 CREATININE mg/dL 1.24 -- 1.06 CALCIUM mg/dL 8.4* -- 8.3* ALBUMIN g/dL -- -- 3.5 ALK PHOS Units/L -- -- 94 ALT Units/L -- -- 20 AST Units/L -- -- 64* BILIRUBIN TOTAL mg/dL -- -- 0.7 < > = values in this interval not displayed. No results found for: BNP No results found for: TROPONINI Exam General: in no apparent distress Neuro: Alert and oriented x 3, moves all extremities well HEENT: normocephalic, atraumatic, Lungs: symmetric, unlabored, clear to auscultation bilaterally Heart: S1,S2, regular rate & rhythm, no murmurs, rubs, or gallops Abdomen: soft, non-tender, non-distended, bowel sounds present Extremities: no LE edema, palpable peripheral pulses BL ASSESSMENT/PLAN: 1. CAD status post CABG for STEMI -Cardiac cath on 05/01 with 40% distal LM; 100% prox LAD; 90% prox Cx; 50% prox and distal RCA -Left ventriculogram:??Moderate blanka-apical hypokinesis; echo on 05/02 with EF ~40% -balloon angioplasty was performed during acute MT and subsequently patient underwent CABG x4 on 05/04/2021 - ischemic cardiomyopathy EF 42%?? 2. Hypotensive and not on any chf meds On midodrine 3. Fluid overload Lasix drip ?? 2. Dyslipidemia: -stable on Atorvastatin 80mg qday ?? 3. Diabetes -stable on insulin per primary team ?? 4. COPD: -stable without any acute issues ?? 5. PAD: - stable ?? 6. Hematuria- -Plavix is currently on hold??urology following??- -S/P cystoscopy 05/14 Approximately 500-600 mL of clots in the bladder evacuated. Bleeding from the previous tumor resection site approximately 3-4 cm in diameter which was fulgurated and hemostasis obtained. -still with condom cath on, but with urine retention - straight cathed overnight, and no urine in the bag with 319cc retention this am according to Bedside RN -H/H this am 9.9/30.8 7. Respiratory failure Transferred to icu on 05/17 for increased O2 requirements Pulmonary following cxr shows mild congestion and is on lasix drip. Cxr findings and lvef do not appear to be bad enough to be leading to resp failure and etiology of his hypotension is unclear as well. Renal function is normal. Would consider swan to clarify hemodynamics, filling pressures to manage him. D/w CriticalCare Physician and Dr Whiting. Vernon Boone MD, MSN, ANP-[facility] 05/17/2021 10:55 AM F FORESTER * Anibal Lara MD - 05/17/2021 10:45 AM CST Hospitalist Progress Note Name: Deepak Alvarado Admission Date: 05/01/2021 Today's Date: 05/17/2021 Subjective: Pt seen and examined Clinical course: Overall pt condition has improved. Still on 4L per NC today 05/16: feels ok today, on 5L per NC 05/17: transferred to ICU for worsening respiratory distress requiring more O2 Objective: Vitals: 05/17/21 0620 05/17/21 0630 05/17/21 0640 05/17/21 0650 BP: 97/55 BP Location: Patient Position: Pulse: 104 97 102 108 Resp: (!) 37 Temp: TempSrc: SpO2: 99% 98% 99% 95% Weight: Height: Wt Readings from Last 3 Encounters: 05/17/21 79 kg (174 lb 2.6 oz) 08/27/13 114.3 kg (252 lb) 10/19/12 111.6 kg (246 lb) I/O last 3 completed shifts: In: 1478 [P.O.:1288; I.V.:190] Out: 3912 [Urine:3912] No intake/output data recorded. Scheduled Meds Current Facility-Administered Medications Medication Dose Route Frequency Provider Last Rate Last Admin ??? acetaminophen (TYLENOL) tablet 650 mg 650 mg oral Q6H PRN Eleonora Duarte NP 650 mg at 05/17/21 0940 ? ? al & mag hydroxide lwfhemjcaxd-sxldxkvhicgkwjw-noghlhumz-nystatin (MAGIC MOUTHWASH) suspension 1-1-1-1 20 mL swish & spit Q4H PRN Tiana Spence NP 20 mL at 05/12/21 1457 ??? albuterol 2.5 mg /3 mL (0.083 %) nebulizer solution 2.5 mg 2.5 mg nebulization Q4H PRN (RT) Ralf Tomlinson MD 2.5 mg at 05/17/21 0224 ??? aspirin enteric coated tablet 81 mg 81 mg oral Daily Varsha Crowder NP 81 mg at 05/17/21 0937 ??? atorvastatin (LIPITOR) tablet 80 mg 80 mg oral Nightly Rhina Granados MD 80 mg at 05/16/212032 ??? dextrose oral liquid liquid 15 g 15 g oral Q15 Min PRN Anibal Lara MD Or ??? dextrose (D10W) 10% bolus 250 mL 250 mL intravenous Q15 Min PRN Anibal Mon MD ??? docusate sodium (COLACE) capsule 100 mg 100 mg oral BID Rhina Granados MD 100 mg at 05/17/21 0937 ??? enoxaparin (LOVENOX) syringe 40 mg 40 mg subcutaneous Daily-2100 Rhina Granados MD 40 mg at107/16/202032 ??? [Held by Provider] furosemide (LASIX) 10 mg/mL injection 40 mg 40 mg intravenous TID Laly Lopes MD 40 mg at 05/16/212032 ??? furosemide (LASIX) 200 mg in sodium chloride 0.9% 100 mL (2 mg/mL) infusion 10 mg/hr intravenous Continuous Laly Lopes MD 5 mL/hr at 05/17/21 0300 10 mg/hr at 05/17/21 0300 ??? glucagon injection 1 mg 1 mg intramuscular Q30 Min PRN Anibal Lara MD ??? guaiFENesin ER (MUCINEX) extended release tablet 600 mg 600 mg oral BID Tiana Spence NP 600 mg at 05/16/212033 ??? haloperidol (HALDOL) injection 2 mg 2 mg intramuscular Q8H PRN Varsha Crowder NP ??? insulin glargine (LANTUS, SEMGLEE) 100 unit/mL injection 24 Units 24 Units subcutaneous NightlySixto Fish MD 24 Units at 05/16/212046 ??? insulin lispro (HumaLOG, ADMELOG) 100 unit/mL injection 0-10 Units 0-10 Units subcutaneous TID with meals Anibal Lara MD 6 Units at 05/17/21 0940 ??? insulin lispro (HumaLOG, ADMELOG) 100 unit/mL injection 0-5 Units 0-5 Units subcutaneous Nightly Anibal Lara MD 1 Units at 05/15/212141 ??? insulin lispro (HumaLOG, ADMELOG) 100 unit/mL injection 10 Units 10 Units subcutaneous TID Sixto Perdomo MD 10 Units at 05/17/2141 ??? metOLazone (ZAROXOLYN) tablet 10 mg 10 mg oral BID DIURETIC Jose Conti MD 10 mg at ??? [Held by Provider] metoprolol tartrate (LOPRESSOR) immediate release tablet 12.5 mg 12.5 mg oral BID Eleonora Duarte NP 12.5 mg at 05/16/21 0909 ??? midodrine (PROAMATINE) tablet 10 mg 10 mg oral TID Rhina Granados MD 10 mg at 05/17/21 0937 ??? norepinephrine in 0.9% sodium chloride (LEVOPHED) 8,000 mcg/250 mL (32 mcg/mL) infusion (premix) 0-2 mcg/kg/min intravenous Titrated Jose Conti MD 8 mL/hr at 05/17/21 0645 0.054 mcg/kg/min at107/17/20 0645 ??? ondansetron (ZOFRAN) injection 4 mg 4 mg intravenous Q6H PRN Rhina Granados MD ??? pantoprazole DR (PROTONIX) extended release tablet 40 mg 40 mg oral Daily Rhina Granados MD40 mg at 05/17/21 0937 ??? polyethylene glycol (MIRALAX) packet 17 g 17 g oral BID Rhina Granados MD 17 g at 05/16/212032 ??? potassium chloride 20 mEq/50 mL in sterile water (premix) 20 mEq 20 mEq intravenous Once Rhina Granados MD ??? potassium chloride 40 mEq/100 mL in sterile water (premix) 40 mEq 40 mEq intravenous Q4H Laly Lopes MD 25 mL/hr at 05/17/21 0600 40 mEq at 05/17/21 0600 ??? QUEtiapine (SEROquel) tablet 25 mg 25 mg oral Nightly Rhina Granados MD ??? sodium chloride 0.9% flush 0.5-20 mL 0.5-20 mL intra-catheter Q8H Rhina Flores MD 10 mL at 05/16/212034 furosemide, 10 mg/hr, Last Rate: 10 mg/hr (05/17/21 0300) norepinephrine, 0-2 mcg/kg/min, Last Rate: 0.054 mcg/kg/min (05/17/21 0645) ??? acetaminophen ? ? al & mag hydroxide sjfiracxeyc-ssvujkpjfxgujal-amikhqdqd-nystatin ??? albuterol ??? dextrose OR dextrose ??? glucagon ??? haloperidol ??? ondansetron Physical Exam: General: alert, cooperative, no distress, appears stated age HEENT: Head:normacephalic, Eyes: Perrla, EOMI bilaterally, nasal and oral mucosal pink and moist Heart: normal rate, regular rhythm, normal S1, S2, no murmurs, rubs, clicks or gallops Lungs: clear to auscultation, no wheezes or rales and unlabored breathing Abdomen: soft, nontender, nondistended, no masses or organomegaly Extremities: peripheral pulses normal, no pedal edema, no clubbing or cyanosis Neuro: alert, oriented x 3, no defects noted in general exam. Lab Data Laboratory review: Chemistry CMP: Lab Results Component Value Date ALBUMIN 3.5 05/17/2021 BUNSER 32 (H) 05/17/2021 CALCIUM 8.4 (L) 05/17/2021 CO2 21 (L) 05/17/2021 CHLORIDE 89 (L) 05/17/2021 CREATININE 1.24 05/17/2021 GLUCOSE 343 (H) 05/17/2021 GLUCOSE 268 (H) 05/17/2021 POTASSIUM 3.6 05/17/2021 SODIUM 129 (L) 05/17/2021 BILITOT 0.7 05/17/2021 PROT 7.3 05/17/2021 ALT 20 05/17/2021 AST 64 (H) 05/17/2021 ALKPHOS 94 05/17/2021 , CBC: Lab Results Component Value Date WBC 8.7 05/17/2021 RBC 3.76 (L) 05/17/2021 HGB 11.3 (L) 05/17/2021 HCT 33.8 (L) 05/17/2021 MCV 89.9 05/17/2021 MCH 30.1 05/17/2021 MCHC 33.4 05/17/2021 RDWCV 13.3 05/17/2021 RDWSD 43.8 05/17/2021 MPV 12.1 05/17/2021 NRBCABS 0.00 05/17/2021 , Coags: No results found for: PT, PTT, APTT, FFN, FIBRINOGEN, INR, ACTIVATEDCL, Lipids: No resultsfound for: CHOL, CHLPL, HDL, LDLCALC, TRIG, CHOLHDL, Cardiac Enzymes: No results found for: CKTOTAL, CKMB, CKMBINDEX, TROPONINT and POC Glucose: Lab Results Component Value Date GLUCOSE 343 (H) 05/17/2021 GLUCOSE 268 (H) 05/17/2021 Home Medications have been reviewed and updated on pt's list Assessment and Plan Acute resp failure - self ext 05/05/21 -Lung infiltrates - pulm vascular congestion versus pneumonia - changed to Zosyn due to worsening Leukocytosis -diuresis per ICU with Lasix gtt and Metolazone -pulmonology follows -today in the ICU, back on 4L per NC today ( was up to 15L at some point) Near syncope/Syncope episode, probable vaso vagal, monitor ?? Acute anterior STEMI with CAD , s/p PCI to LAD -s/p CABG x 4 05/04 given re thrombosis of existing stents -s/p IABP, removed 05/06 - ASA, ??statins, BBs, off Plavix ?? Post CABG cardiogenic shock, hypotensive again - s/p??Dobutamine gtt -back on Levophed ?? Ventricular fibrillation - briefly on 05/03 - treated with Amiodarone and Dobutamine gtt, off them ?? Gross Hematuria ?- in a pt with hx of ??cystoscopy, -clot evacuation and transurethral resection of bladder tumor at [facility] -s/p 20??German three way catheter, urine still bloody -holding Plavix and Lovenox -cysto 05/14 with clot evacuation and fulguration ? Type 2 diabetes.??- started on Insulin gtt ?? Acute blood loss anemia ; -s/p PRBC transfusions in ICU - monitor HH, today 9.9 ?? Mild hyponatremia, monitor ?? Hx of ??Tobacco use. ?? Vitamin-D deficiency.- stable DVT prophylaxis :Lovenox Pt will need continued inpatient management for the above medical issues. Code status: full Anibal Hughes MD [facility] Hospitalist 05/17/2021 10:45 AM F FORESTER * Laly Lopes MD - 05/17/2021 9:09 AM CST Cardiothoracic Surgery Progress Note Deepak Alvarado 1960 Hospital DAY#16 10 Days Post-Op s/p: Procedures: * Coronary artery bypass grafting x4, placement of left QUINN to the LAD, saphenous vein graft to thediagonal artery and obtuse marginal in a sequential fashion, saphenous vein [facility] Subject[facility]: Transferred to ICU overnight for fluid overload and resp distress requiring nonrebreather support. Started on lasix gtt with good fluid removal and de-escalation of support. OBJECTIVE: Vitals: Temp: [36.7 ??C (98.1 ??F)-37.7 ??C (99.8 ??F)] 37.1 ??C (98.8 ??F) Pulse: [97-123] 108 BP: (74-111)/(42-69) 97/55 Resp: [19-37] 37 SpO2: [87 %-99 %] 95 % Wt Readings from Last 3 Encounters: 05/17/21 79 kg (174 lb 2.6 oz) 08/27/13 114.3 kg (252 lb) 10/19/12 111.6 kg (246 lb) I/O last 2 completed shifts: In: 1278 [P.O.:1088; I.V.:190] Out: 2937 [Urine:2937] -1350 for 24, -12361 for stay Physical Exam HENT: Mouth/Throat: Mouth: Mucous membranes are moist. Eyes: Pupils: Pupils are equal, round, and reactive to light. Cardiovascular: Rate and Rhythm: Normal rate and regular rhythm. Pulses: Normal pulses. Heart sounds: Normal heart sounds. Comments: SR Pulmonary: Effort: Pulmonary effort is normal. Breath sounds: Normal breath sounds. Genitourinary: Comments: Osorio- dark blood tinged urine Musculoskeletal: General: Normal range of motion. Right lower leg: No edema. Left lower leg: No edema. Skin: Comments: Sternum covered with silver Saph sites steristipped HOME CARE PROVIDER Neurological: General: No focal deficit present. Mental Status: He is alert and oriented to person, place, and time. Psychiatric: Behavior: Behavior normal. Access: central line Recent Labs Lab Units 05/17/21 0333 05/16/21 0542 05/15/21 0532 WBC K/cumm 8.7 6.2 9.4 HEMOGLOBIN g/dL 11.3* 9.9* 10.7* HEMATOCRIT % 33.8* 30.8* 32.2* PLATELETS K/cumm 267 241 270 Recent Labs Lab Units 05/17/21 0333 05/16/21 0542 05/15/21 0533 SODIUM mmol/L 133* 132* 131* POTASSIUM PLASMA mmol/L 2.6* 3.8 3.8 CHLORIDE mmol/L 92* 101 98 CO2 mmol/L 22 20* 21* BUN SERUM mg/dL 25 22 22 CREATININE mg/dL 1.06 0.68* 0.70* CALCIUM mg/dL 8.3* 8.1* 8.3* Recent Labs Lab Units 05/12/21 1226 PROTIME (PT) sec 14.0* INR 1.3* APTT sec 29 Recent Labs Lab Units 05/17/21 0220 PH ART 7.50* PCO2 ART mmHg 27* PO2 ART mmHg 72* BASE EXC ART mmol/L -2 Imaging: Today's CXR bilateral pulmonary edema, improved from yesterday Assessment and Plan: 60 y.o. male 10 Days Post-Op s/p Coronary artery bypass grafting x4, placement of left QUINN to the LAD, saphenous vein graft to the diagonal artery and obtuse marginal in a sequential fashion, saphenous vein graft to the PDA 05/04/[address] Granados Neuro: Ax0x4, Continue Seroquel as scheduled. CVS: Wean pressor support. Repeat TTE today to assess volume status and function Pulm: On HFNC, CXR today very wet. Cont diuresis, complete 7 days zosyn today GI: Heart Healthy DM2 Diet-- +flatus -BM Renal: Lasix 40 TID today, 10 metolazone ID: Continue Zosyn for total 7 days , WBC down trending D/L/T: D/c wires, DC central line : voiding spont Prophylaxis: SCDs, Lovenox Endo. BS elevated, endocrine for management Dispo: CVU. Laly Lopes MD Cardiothoracic Surgery [facility] Cosigned by Moreno Whiting MD at 05/17/2021 10:43 AM STAFF FORESTER F FORESTER F FORESTER * Caleb Toth PA - 05/17/2021 8:04 AM CST Images from the original note were not included. Critical Care Medicine Daily Progress Team: Community AM Subjective Patient is a 60 y.o. y/o male admitted on 05/01/2021 5:20 PM with the following indication(s) for ICU care hypoxemic respiratory failure, pulmonary edema, hypokalemia, shock Interval History: - No acute complaints, states breathing is better - NE for MAP > 65 - Hypoxia improving with diuresis - ABG with hyperventilation - Lasix drip for pulmonary edema, unable to place osorio but is voiding into urinal - Tolerating Diet - AGMA, lactate normalized, B-OH pending, BGs now 300s, to start insulin drip, discussed with Endo - aggressively replacing K with diuresis and insulin - Empiric zosyn HPI (05/17) 60M smoker hx copd, obesity, pvd, htn, hld, dm2 & CAD s/p multiple LAD stents who p/w anterior STEMI after bladder procedure on 04/29. [facility] was [facility] where they found in-stent thrombosis and an angioplasty was performed but stent could not be placed. A balloon pump was placed and the patient was transferred to the CVU. CT-surgery was consulted for CABG. The patie nt underwent a 4 vessel cabg on 05/04 w/ Dr. Granados (MAE->LAD, Saph vein->diag & obtuse, Saph->PDA). He developed rebleeding from his bladder tumor and this was adressed by urology. Heself extubated the next day after his CABG. His osorio was removed yesterday and he is currently post op day 11 from the CABG. He has been getting diuresed on the floor but has unfortunately had increasing oxygen requirement for the last 24 hours despite diuresis. He is currently on a non-rebreatherand being transferred to the ICU. Hospital Course Scheduled Medications: aspirin, 81 mg, oral, Daily atorvastatin, 80 mg, oral, Nightly docusate sodium, 100 mg, oral, BID enoxaparin, 40 mg, subcutaneous, Daily-2100 [Held by Provider] furosemide, 40 mg, intravenous, TID guaiFENesin ER, 600 mg, oral, BID insulin glargine, 24 Units, subcutaneous, Nightly insulin lispro, 0-10 Units, subcutaneous, TID with meals insulin lispro, 0-5 Units, subcutaneous, Nightly insulin lispro, 10 Units, subcutaneous, TID PC metOLazone, 10 mg, oral, BID DIURETIC [Held by Provider] metoprolol tartrate, 12.5 mg, oral, BID midodrine, 10 mg, oral, TID pantoprazole DR, 40 mg, oral, Daily polyethylene glycol, 17 g, oral, BID potassium chloride, 20 mEq, intravenous, Once potassium chloride, 40 mEq, intravenous, Q4H QUEtiapine, 25 mg, oral, Nightly sodium chloride 0.9%, 0.5-20 mL, intra-catheter, Q8H LEAH Continuous Medications: furosemide, 10 mg/hr, Last Rate: 10 mg/hr (05/17/21 0300) norepinephrine, 0-2 mcg/kg/min, Last Rate: 0.054 mcg/kg/min (05/17/21 0645) PRN Medications: ??? acetaminophen ? ? al & mag hydroxide ezfcqsmjhuo-negntcrkarfpovt-sejyuxvbt-nystatin ??? albuterol ??? dextrose OR dextrose ??? glucagon ??? haloperidol ??? ondansetron Objective Vitals: Most Recent: Vitals: 05/17/21 0650 BP: Pulse: 108 Resp: (!) 37 Temp: SpO2: 95% 24hr Min/Max: Temp Min: 36.7 ??C (98.1 ??F) Max: 37.7 ??C (99.8 ??F) Pulse Min: 97 Max: 123 BP Min: 74/42 Max: 111/60 Resp Min: 19 Max: 37 SpO2 Min: 87 % Max: 99 % LDA: Introducer 05/04/21 Right Internal jugular (Active) Placement Date/Time: 05/04/21 (c) 1441 Hand Hygiene Performed: Yes Orientation: Right Location: Internal jugular Description (optional): multi-lumen access catheter (MAC) Number of days: 12 Vent settings: Hemodynamic parameters for last 24 hours: I/O: Date 05/16/21 0700 - 05/17/21 0659 05/17/21 0700 - 05/18/21 0659 Shift 3204-7664 0560-2545 24 Hour Total 5651-1185 1068-8085 24 Hour Total INTAKE P.O. 730 04 3041 I.V.(mL/kg) 190(2.4) 190(2.4) Shift Total(mL/kg) 998(12.7) 280(3.5) 1278(16.2) OUTPUT Urine(mL/kg/hr) 1437(1.5) 1500(1.6) 2937(1.5) Shift Total(mL/kg) 1437(18.3) 1500(19) 2937(37.2) [facility] -437 -2723 -5303 Weight (kg) 78.7 79 79 79 79 79 Physical Exam: Gen:Sittin in chair, ill appearing, NAD HEENT: NC/AT, PERRLA, EOMI Neck: Supple, Trachea Midline CV: Sinus Tach, S1 and S2 heard, Distal pulses intact, Warm periphery, cap refill < 5 seconds Pulm: Diminished, on NC Abd: Soft, Nontender, Normoactive BS : Voiding Ext: No edema noted, Derm: Warm, Dry, intact, surgical sites appropriately dress and C/D/I Psych: Interacting appropriately, Cooperative Neuro: Alert, Oriented, Moves all extremities Lab/Radiology/Diagnostic Review: Laboratory review: Lab results in the last 24 hours: Recent Results (from the past 24 hour(s)) POCT glucose Collection Time: 05/16/21 12:54 PM Result Value Ref Range Glucose, POC 114 70 - 199 mg/dL POCT glucose Collection Time: 05/16/21 6:10 PM Result Value Ref Range Glucose, POC 104 70 - 199 mg/dL POCT glucose Collection Time: 05/16/21 8:47 PM Result Value Ref Range Glucose, POC 142 70 - 199 mg/dL POCT glucose Collection Time: 05/16/21 10:45 PM Result Value Ref Range Glucose, POC 131 70 - 199 mg/dL POCT glucose Collection Time: 05/17/21 2:01 AM Result Value Ref Range Glucose, POC 135 70 - 199 mg/dL Blood gas, arterial Collection Time: 05/17/21 2:20 AM Result Value Ref Range pH, Art 7.50 (H) 7.35 - 7.45 PCO2, Arterial 27 (L) 35 - 45 mmHg PO2, Arterial 72 (L) 83 - 108 mmHg HCO3 Art (Calculated) 24 20 - 30 mmol/L BE, art -2 mmol/L O2 Sat Art (Measured) 96 (H) 90 - 95 % POCT glucose Collection Time: 05/17/21 2:21 AM Result Value Ref Range Glucose, POC 139 70 - 199 mg/dL Comprehensive metabolic panel Collection Time: 05/17/21 3:33 AM Result Value Ref Range Sodium 133 (L) 135 - 145 mmol/L Potassium, pl 2.6 (Critical) 3.3 - 4.9 mmol/L Chloride 92 (L) 97 - 110 mmol/L CO2 22 22 - 32 mmol/L Anion gap 19 (H) 2 - 15 mmol/L BUN 25 8 - 25 mg/dL Creatinine 1.06 0.80 - 1.30 mg/dL Glucose 157 70 - 199 mg/dL Calcium 8.3 (L) 8.5 - 10.3 mg/dL Bilirubin, total 0.7 0.1 - 1.2 mg/dL Protein, pl 7.3 6.5 - 8.5 g/dL Albumin 3.5 3.5 - 5.0 g/dL Alk phos 94 40 - 130 Units/L ALT 20 7 - 55 Units/L AST 64 (H) 10 - 50 Units/L Calcium, ionized Collection Time: 05/17/21 3:33 AM Result Value Ref Range Ca, ionized, bld 4.42 (L) 4.60 - 5.20 mg/dL Ca, ionized, bld, calc 4.44 (L) 4.60 - 5.20 mg/dL Magnesium Collection Time: 05/17/21 3:33 AM Result Value Ref Range Magnesium 1.7 1.4 - 2.5 mg/dL Phosphorus Collection Time: 05/17/21 3:33 AM Result Value Ref Range Phosphorus, pl 4.4 2.3 - 4.5 mg/dL CBC with auto differential Collection Time: 05/17/21 3:33 AM Result Value Ref Range WBC 8.7 3.8 - 9.9 K/cumm Hgb 11.3 (L) 13.0 - 17.5 g/dL Hct 33.8 (L) 38.9 - 50.3 % Plt 267 150 - 400 K/cumm MPV 12.1 9.1 - 12.3 fL RBC 3.76 (L) 4.30 - 5.80 M/cumm MCV 89.9 81.3 - 96.4 fL MCH 30.1 27.1 - 33.3 pg MCHC 33.4 32.3 - 35.7 g/dL RDW CV 13.3 11.1 - 14.9 % RDW SD 43.8 35.7 - 48.1 fL NRBC abs 0.00 0.00 - 0.01 K/cumm Differential, auto Collection Time: 05/17/21 3:33 AM Result Value Ref Range Neutrophil abs 6.8 (H) 1.7 - 6.5 K/cumm Imm gran abs 0.1 0.0 - 0.1 K/cumm Lymphocyte abs 1.0 0.8 - 3.3 K/cumm Monocyte abs 0.8 0.2 - 0.8 K/cumm Eosinophil abs 0.0 0.0 - 0.5 K/cumm Basophil abs 0.0 0.0 - 0.1 K/cumm Neutrophil pct 78.4 % Imm gran pct 0.6 % Lymphocyte pct 11.7 % Monocyte pct 9.0 % Eosinophil pct 0.1 % Basophil pct 0.2 % eGFR Collection Time: 05/17/21 3:33 AM Result Value Ref Range eGFR 76 mL/min/1.73 m2 Oxyhemoglobin, central venous Collection Time: 05/17/21 3:43 AM Result Value Ref Range Oxyhemoglobin, CV 57.0 % Oxyhemoglobin, central venous Collection Time: 05/17/21 4:50 AM Result Value Ref Range Oxyhemoglobin, CV 83.8 % POCT glucose Collection Time: 05/17/21 9:36 AM Result Value Ref Range Glucose, POC 268 (H) 70 - 199 mg/dL Basic metabolic panel Collection Time: 05/17/21 9:53 AM Result Value Ref Range Sodium 129 (L) 135 - 145 mmol/L Potassium, pl 3.6 3.3 - 4.9 mmol/L Chloride 89 (L) 97 - 110 mmol/L CO2 21 (L) 22 - 32 mmol/L Anion gap 19 (H) 2 - 15 mmol/L BUN 32 (H) 8 - 25 mg/dL Creatinine 1.24 0.80 - 1.30 mg/dL Glucose 343 (H) 70 - 199 mg/dL Calcium 8.4 (L) 8.5 - 10.3 mg/dL Lactate Collection Time: 05/17/21 9:53 AM Result Value Ref Range Lactate 1.7 0.7 - 2.0 mmol/L eGFR Collection Time: 05/17/21 9:53 AM Result Value Ref Range eGFR 63 mL/min/1.73 m2 XR Chest 1 View Result Date: 05/16/2021 No change from previous. Electronically signed by: Humphrey Mojica M.D. Plan: Neuro - Seroquel CV # HFrEF in setting of recent CABG and MT - Diuresis - Unable to tolerate afterload reduction agents or BB - Checking TTE # Shock - Likely Cardiogenic - Trending ScVO2, Lactate, and ABG - NE currently - Diuresis to improve contractility - Cardiology following # CAD - ASA and statin Pulm # Acute Hypoxemic Respiratory Failure secondary to # Pulmonary Edema - Titrate FiO2 for SpO2 > 92 - Pulm hygiene, OOB, IS - Diuresis GI Diet: ADAT PUD PPx: PPI Bowel regimen: Colace and Miralax Endo # Possible DKA - Insulin drip, discussed with Ende Renal/ # High risk of ISRRAEL - Follow UOP, lytes and RFP # Hematuria s/p cystoscopy/fulguration - Do not place osorio per urology # Electrolyte Derangements - Replacing prn Heme - No acute indication for transfusion - Daily CBC VTE PPx: SCDs and Lovenox ID # Possible PNA - Zosyn D8 ICU standards of care: Restraints: N/A Physical Therapy/Activity: PT Ordered/ To chair TID Access: RIJ Introducer Other: Goals of care: Full code Community AM Assessment and plan has been reviewed with attending, HEIDY Colon [phone], IRAIDA , IRAIDA 2 Critical Care Medicine [facility] Cosigned by Alexandru Porter MD at 05/17/2021 6:10 PM STAFF FORESTER F FORESTER F FORESTER * Alejandro Pratt MD - 05/17/2021 6:13 AM CST Pulmonary Daily Progress Chief complaint/reason for consult: Respiratory failure. Interval History: Pt transferred to ICU d/t increased oxygen requirements Was 6-8 lpm yesterday, now requiring 15 lpm He denies dyspnea Laying supine in bed has occasional cough No chest pain No fevers Presenting History: 60 yo man w COPD, DM, CAD/stents admitted 05/01/21 with chest pain. Had recent hematuria as well. Workup revealed an acute MT. Cath showed multi-vessel CAD. Had balloon pump placed. CABG x 4 done on 05/04/21. He was continued on mechanical ventilation and self extubated this AM (05/05/21). He is on multiple pressors. Sedated with precedex. Some tachypnea. A balloon pump is in place. Current tobacco use. COPD listed as prior diagnosis. No inhalers on home med list. Allergies: Allergies Allergen Reactions ??? Metoclopramide Medications: Scheduled Meds:norepinephrine in 0.9% sodium chloride, , , aspirin, 81 mg, oral, Daily atorvastatin, 80 mg, oral, Nightly docusate sodium, 100 mg, oral, BID enoxaparin, 40 mg, subcutaneous, Daily-2100 furosemide, 40 mg, intravenous, TID guaiFENesin ER, 600 mg, oral, BID insulin glargine, 24 Units, subcutaneous, Nightly insulin lispro, 0-10 Units, subcutaneous, TID with meals insulin lispro, 0-5 Units, subcutaneous, Nightly insulin lispro, 10 Units, subcutaneous, TID PC magnesium sulfate, 4 g, intravenous, Once metOLazone, 10 mg, oral, BID DIURETIC [Held by Provider] metoprolol tartrate, 12.5 mg, oral, BID pantoprazole DR, 40 mg, oral, Daily piperacillin-tazobactam, 3.375 g, intravenous, Q6H LEAH polyethylene glycol, 17 g, oral, BID potassium chloride, 20 mEq, intravenous, Once potassium chloride, 40 mEq, intravenous, Q4H potassium chloride ER, 20 mEq, oral, BID QUEtiapine, 25 mg, oral, Daily QUEtiapine, 50 mg, oral, Nightly sodium chloride 0.9%, 0.5-20 mL, intra-catheter, Q8H LEAH Continuous Infusions:furosemide, 10 mg/hr, Last Rate: 10 mg/hr (05/17/21 0300) norepinephrine, 0-2 mcg/kg/min PRN Meds:.acetaminophen ? ? al & mag hydroxide wumbsrisqdj-wrhjyyougwqxdsp-nbjpgpjnq-nystatin ??? albuterol ??? dextrose OR dextrose ??? glucagon ??? haloperidol ??? ondansetron ROS Above review of system reviewed on 05/17/2021 Vitals: Vitals: 05/17/21 0500 05/17/21 0510 05/17/21 0520 05/17/21 0530 BP: (!) 81/56 BP Location: Patient Position: Pulse: 115 111 105 109 Resp: 22 (!) 34 29 (!) 33 Temp: 37.1 ??C (98.8 ??F) TempSrc: SpO2: 90% 91% 96% 98% Weight: Height: Temp (24hrs), Av.2 ??C (98.9 ??F), Min:36.6 ??C (97.9 ??F), Max:37.7 ??C (99.8 ??F) Intake/Output Summary (Last 24 hours) at 05/17/2021 0613 Last data filed at 05/17/2021 0300 Gross per 24 hour Intake 1028 ml Output 2287 ml Net -1259 ml Physical Exam Constitutional: General: He is not in acute distress. Appearance: He is well-developed. HENT: Head: Normocephalic and atraumatic. Eyes: Conjunctiva/sclera: Conjunctivae normal. Neck: Thyroid: No thyromegaly. Cardiovascular: Rate and Rhythm: Normal rate and regular rhythm. Heart sounds: No murmur heard. Pulmonary: Effort: Pulmonary effort is normal. No respiratory distress. Breath sounds: Normal breath sounds. No stridor. No wheezing or rales. Chest: Comments: Sternotomy incision Abdominal: General: Bowel sounds are normal. Palpations: Abdomen is soft. Skin: General: Skin is warm and dry. Neurological: Mental Status: He is alert. Lab/Radiology/Diagnostic Review: Labs: Recent Labs Lab Units 05/17/21 0333 05/16/21 0542 05/15/21 0532 WBC K/cumm 8.7 6.2 9.4 HEMOGLOBIN g/dL 11.3* 9.9* 10.7* HEMATOCRIT % 33.8* 30.8* 32.2* PLATELETS K/cumm 267 241 270 NEUTROS PCT % 78.4 -- -- LYMPHS PCT % 11.7 -- -- MONOS PCT % 9.0 -- -- EOS PCT % 0.1 -- -- Recent Labs Lab Units 05/17/21 0333 05/17/21 0221 05/17/21 0201 05/16/21 0751 05/16/21 0542 05/15/21 0730 05/15/21 0533 SODIUM mmol/L 133* -- -- -- 132* -- 131* POTASSIUM PLASMA mmol/L 2.6* -- -- -- 3.8 -- 3.8 CHLORIDE mmol/L 92* -- -- -- 101 -- 98 CO2 mmol/L 22 -- -- -- 20* -- 21* ANIONGAP mmol/L 19* -- -- -- 11 -- 12 GLUCOSE mg/dL 157 -- -- -- 96 < > 117 POC GLUCOSE MONITOR mg/dL -- 139 135 < > -- < > -- BUN SERUM mg/dL 25 -- -- -- 22 -- 22 CREATININE mg/dL 1.06 -- -- -- 0.68* -- 0.70* CALCIUM mg/dL 8.3* -- -- -- 8.1* -- 8.3* ALBUMIN g/dL 3.5 -- -- -- -- -- -- ALK PHOS Units/L 94 -- -- -- -- -- -- ALT Units/L 20 -- -- -- -- -- -- AST Units/L 64* -- -- -- -- -- -- BILIRUBIN TOTAL mg/dL 0.7 -- -- -- -- -- -- < > = values in this interval not displayed. Recent Labs Lab Units 05/17/21 0220 PH ART 7.50* PCO2 ART mmHg 27* PO2 ART mmHg 72* HCO3 ART (CALC) mmol/L 24 BASE EXC ART mmol/L -2 O2 SAT ART (JOELLE) % 96* Imaging: CXR 05/17: CM, mild PVC, patchy L mid lung infiltrate CXR 05/16: CM, hazy left chest, L basilar atelectasis Other diagnostic tests: I have personally reviewed above laboratory findings, chest imaging, and diagnostic tests 05/17/2021 Assessment and Plan: Acute respiratory failure Acute MT w CAD s/p CABG x 4 on 05/04/21, past hx multiple stents Cardiogenic shock Cardiomyopathy EF 40% V fib Hx COPD Anemia Infiltrates: edema v pna, tracheal aspirate w yeast Hematuria s/p cystoscopy/fulguration ?? Recs: Oxygen support Incentive spirometry Diurese as able abx coverage for pna: d 8 Zosyn Scheduled bronchodilators Increase activity Chart reviewed F FORESTER * Ailyn Hsu RRT - 05/17/2021 2:55 AM CST This was the 2nd Rapid Response for this patient. The patient was not oxygenating well was placed on non-rebreather mask on 15lpm and was still not doing well with oxygenation. The patient was transferred to the ICU for further evaluation. All safety protocols were followed during the rapid. F FORESTER * Sixto Fish MD - 05/16/2021 1:20 PM CST Endocrine Diabetes Follow up Note Reason for Consult: Blood glucose management s/p CABG CC: DM Interval History: Pt oral intake variable Eating 25 % - 75 % meals Pt denies any new complaints Objective Vitals: Most Recent : Vitals: 05/16/21 0712 05/16/21 0715 05/16/21 0729 05/16/21 1215 BP: 102/64 92/59 BP Location: Right arm Left arm Patient Position: Lying Lying Pulse: 97 93 99 98 Resp: 22 20 Temp: 36.6 ??C (97.9 ??F) 37.1 ??C (98.8 ??F) TempSrc: Oral Oral SpO2: (!) 87% 93% 94% 91% Weight: 78.7 kg (173 lb 8 oz) Height: Physical Exam: Physical Exam HENT: Head: Normocephalic and atraumatic. Eyes: Conjunctiva/sclera: Conjunctivae normal. Neck: Thyroid: No thyromegaly. Cardiovascular: Rate and Rhythm: Normal rate and regular rhythm. Heart sounds: Normal heart sounds. Pulmonary: Effort: Pulmonary effort is normal. Breath sounds: Normal breath sounds. Abdominal: General: Bowel sounds are normal. Palpations: Abdomen is soft. Tenderness: There is no abdominal tenderness. Musculoskeletal: Right lower leg: No edema. Left lower leg: No edema. Skin: General: Skin is warm and dry. Neurological: Mental Status: He is alert and oriented to person, place, and time. Psychiatric: Thought Content: Thought content normal. Judgment: Judgment normal. Lab/Radiology/Diagnostic Review: Reviewed. Recent Results (from the past 48 hour(s)) POCT glucose Collection Time: 05/14/21 5:12 PM Result Value Ref Range Glucose, POC 219 (H) 70 - 199 mg/dL POCT glucose Collection Time: 05/14/21 10:07 PM Result Value Ref Range Glucose, POC 131 70 - 199 mg/dL POCT glucose Collection Time: 05/15/21 2:40 AM Result Value Ref Range Glucose, POC 102 70 - 199 mg/dL CBC without differential Collection Time: 05/15/21 5:32 AM Result Value Ref Range WBC 9.4 3.8 - 9.9 K/cumm Hgb 10.7 (L) 13.0 - 17.5 g/dL Hct 32.2 (L) 38.9 - 50.3 % Plt 270 150 - 400 K/cumm MPV 11.8 9.1 - 12.3 fL RBC 3.52 (L) 4.30 - 5.80 M/cumm MCV 91.5 81.3 - 96.4 fL MCH 30.4 27.1 - 33.3 pg MCHC 33.2 32.3 - 35.7 g/dL RDW CV 13.4 11.1 - 14.9 % RDW SD 45.4 35.7 - 48.1 fL NRBC abs 0.00 0.00 - 0.01 K/cumm Basic metabolic panel Collection Time: 05/15/21 5:33 AM Result Value Ref Range Sodium 131 (L) 135 - 145 mmol/L Potassium, pl 3.8 3.3 - 4.9 mmol/L Chloride 98 97 - 110 mmol/L CO2 21 (L) 22 - 32 mmol/L Anion gap 12 2 - 15 mmol/L BUN 22 8 - 25 mg/dL Creatinine 0.70 (L) 0.80 - 1.30 mg/dL Glucose 117 70 - 199 mg/dL Calcium 8.3 (L) 8.5 - 10.3 mg/dL Phosphorus Collection Time: 05/15/21 5:33 AM Result Value Ref Range Phosphorus, pl 3.0 2.3 - 4.5 mg/dL Magnesium Collection Time: 05/15/21 5:33 AM Result Value Ref Range Magnesium 1.7 1.4 - 2.5 mg/dL eGFR Collection Time: 05/15/21 5:33 AM Result Value Ref Range eGFR 103 mL/min/1.73 m2 POCT glucose Collection Time: 05/15/21 7:30 AM Result Value Ref Range Glucose, POC 127 70 - 199 mg/dL POCT glucose Collection Time: 05/15/21 12:06 PM Result Value Ref Range Glucose, POC 189 70 - 199 mg/dL POCT glucose Collection Time: 05/15/21 5:05 PM Result Value Ref Range Glucose, POC 217 (H) 70 - 199 mg/dL POCT glucose Collection Time: 05/15/21 8:42 PM Result Value Ref Range Glucose, POC 177 70 - 199 mg/dL POCT glucose Collection Time: 05/16/21 2:43 AM Result Value Ref Range Glucose, POC 95 70 - 199 mg/dL Basic metabolic panel Collection Time: 05/16/21 5:42 AM Result Value Ref Range Sodium 132 (L) 135 - 145 mmol/L Potassium, pl 3.8 3.3 - 4.9 mmol/L Chloride 101 97 - 110 mmol/L CO2 20 (L) 22 - 32 mmol/L Anion gap 11 2 - 15 mmol/L BUN 22 8 - 25 mg/dL Creatinine 0.68 (L) 0.80 - 1.30 mg/dL Glucose 96 70 - 199 mg/dL Calcium 8.1 (L) 8.5 - 10.3 mg/dL Phosphorus Collection Time: 05/16/21 5:42 AM Result Value Ref Range Phosphorus, pl 3.2 2.3 - 4.5 mg/dL Magnesium Collection Time: 05/16/21 5:42 AM Result Value Ref Range Magnesium 2.0 1.4 - 2.5 mg/dL CBC without differential Collection Time: 05/16/21 5:42 AM Result Value Ref Range WBC 6.2 3.8 - 9.9 K/cumm Hgb 9.9 (L) 13.0 - 17.5 g/dL Hct 30.8 (L) 38.9 - 50.3 % Plt 241 150 - 400 K/cumm MPV 11.7 9.1 - 12.3 fL RBC 3.34 (L) 4.30 - 5.80 M/cumm MCV 92.2 81.3 - 96.4 fL MCH 29.6 27.1 - 33.3 pg MCHC 32.1 (L) 32.3 - 35.7 g/dL RDW CV 13.4 11.1 - 14.9 % RDW SD 45.6 35.7 - 48.1 fL NRBC abs 0.00 0.00 - 0.01 K/cumm eGFR Collection Time: 05/16/21 5:42 AM Result Value Ref Range eGFR 105 mL/min/1.73 m2 POCT glucose Collection Time: 05/16/21 7:51 AM Result Value Ref Range Glucose, POC 135 70 - 199 mg/dL POCT glucose Collection Time: 05/16/21 12:54 PM Result Value Ref Range Glucose, POC 114 70 - 199 mg/dL Lab Results Component Value Date HGBA1C 13.5 (H) 05/03/2021 Assessment/Recommendations: 1. Uncontrolled type 2 diabetes mellitus complicated by hyperglycemia post CABG ?? Variable oral intake Blood sugars are decent Continue current insulin regimen Advised nurse to give prandial Humalog insulin post meals If patient oral intake is between 25-75 % advised nurse to call me for insulin orders Consider use of SGLT 2 inhibitors In future 2. STEMI : s/p stent, s/p cabg 3. HLD on statin therapy Will continue to follow Sixto Hurtado MD 05/16/2021 F FORESTER * Anibal Lara MD - 05/16/2021 12:49 PM CST Hospitalist Progress Note Name: Deepak Alvarado Admission Date: 05/01/2021 Today's Date: 05/16/2021 Subjective: Pt seen and examined Clinical course: Overall pt condition has improved. Still on 4L per NC today 05/16: feels ok today, on 5L per NC Objective: Vitals: 05/16/21 0712 05/16/21 0715 05/16/21 0729 05/16/21 1215 BP: 102/64 92/59 BP Location: Right arm Left arm Patient Position: Lying Lying Pulse: 97 93 99 98 Resp: 22 20 Temp: 36.6 ??C (97.9 ??F) 37.1 ??C (98.8 ??F) TempSrc: Oral Oral SpO2: (!) 87% 93% 94% 91% Weight: 78.7 kg (173 lb 8 oz) Height: Wt Readings from Last 3 Encounters: 05/16/21 78.7 kg (173 lb 8 oz) 08/27/13 114.3 kg (252 lb) 10/19/12 111.6 kg (246 lb) I/O last 3 completed shifts: In: 1357 [P.O.:1357] Out: 1275 [Urine:1275] I/O this shift: In: 287 [P.O.:287] Out: 237 [Urine:237] Scheduled Meds Current Facility-Administered Medications Medication Dose Route Frequency Provider Last Rate Last Admin ??? acetaminophen (TYLENOL) tablet 650 mg 650 mg oral Q6H PRN Eleonora Duarte NP 650 mg at 05/15/21 1816 ? ? al & mag hydroxide dyfolxrtdkf-pvhtojblliaomqe-lxvcgpaji-nystatin (MAGIC MOUTHWASH) suspension 1-1-1-1 20 mL swish & spit Q4H PRN Tiana Spence NP 20 mL at 05/12/21 1457 ??? albuterol 2.5 mg /3 mL (0.083 %) nebulizer solution 2.5 mg 2.5 mg nebulization Q4H PRN (RT) Ralf Tomlinson MD ??? aspirin enteric coated tablet 81 mg 81 mg oral Daily Varsha Crowder NP 81 mg at ??? atorvastatin (LIPITOR) tablet 80 mg 80 mg oral Nightly Rhina Granados MD 80 mg at 05/14/218 ??? dextrose oral liquid liquid 15 g 15 g oral Q15 Min PRN Anibal Lara MD Or ??? dextrose (D10W) 10% bolus 250 mL 250 mL intravenous Q15 Min PRN Anibal Mon MD ??? docusate sodium (COLACE) capsule 100 mg 100 mg oral BID Rhina Granados MD 100 mg at 05/15/21 0944 ??? enoxaparin (LOVENOX) syringe 40 mg 40 mg subcutaneous Daily-2100 Rhina Granados MD 40 mg at107/15/20 2224 ??? furosemide (LASIX) 10 mg/mL injection 40 mg 40 mg intravenous TID Laly Lopes MD ??? glucagon injection 1 mg 1 mg intramuscular Q30 Min PRN Anibal Lara MD ??? guaiFENesin ER (MUCINEX) extended release tablet 600 mg 600 mg oral BID Tiana Spence [employer] CLERK 600 mg at 05/16/21 0909 ??? haloperidol (HALDOL) injection 2 mg 2 mg intramuscular Q8H PRN Varsha Crowder NP ??? insulin glargine (LANTUS, SEMGLEE) 100 unit/mL injection 24 Units 24 Units subcutaneous NightlySixto Fish MD 24 Units at 05/15/218 ??? insulin lispro (HumaLOG, ADMELOG) 100 unit/mL injection 0-10 Units 0-10 Units subcutaneous TID with meals Anibal Lara MD 4 Units at 05/15/21 1848 ??? insulin lispro (HumaLOG, ADMELOG) 100 unit/mL injection 0-5 Units 0-5 Units subcutaneous Nightly Anibal Lara MD 1 Units at 05/15/212141 ??? insulin lispro (HumaLOG, ADMELOG) 100 unit/mL injection 10 Units 10 Units subcutaneous TID withmeals Sixto Fish MD 10 Units at 05/16/21 0912 ??? metoprolol tartrate (LOPRESSOR) immediate release tablet 12.5 mg 12.5 mg oral BID Eleonora Duarte NP 12.5 mg at 05/16/21 0909 ??? ondansetron (ZOFRAN) injection 4 mg 4 mg intravenous Q6H PRN Rhina Granados MD ??? pantoprazole DR (PROTONIX) extended release tablet 40 mg 40 mg oral Daily Rhina Granados MD40 mg at 05/16/21 0909 ??? piperacillin-tazobactam (ZOSYN) 3.375 g in sodium chloride 0.9% 100 mL IVPB 3.375 g intravenous Q6H LEAH Eleonora Duarte NP 200 mL/hr at 05/16/21 0534 3.375 g at 05/16/21 0534 ??? polyethylene glycol (MIRALAX) packet 17 g 17 g oral BID Rhina Granados MD 17 g at 05/15/21 0949 ??? potassium chloride ER (KLOR-CON) extended release tablet 20 mEq 20 mEq oral BID Eleonora Duarte NP 20 mEq at 05/16/21 0909 ??? QUEtiapine (SEROquel) tablet 25 mg 25 mg oral Daily Varsha Crowder NP 25 mg at 05/16/21 0911 ??? QUEtiapine (SEROquel) tablet 50 mg 50 mg oral Nightly Varsha Crowder NP 50 mg at 224 ??? sodium chloride 0.9% flush 0.5-20 mL 0.5-20 mL intra-catheter Q8H Rhina Flores MD 10 mL at 05/16/21 0535 ??? acetaminophen ? ? al & mag hydroxide nhgnaanrrqs-tedlolfwgrcswep-xifeyncwh-nystatin ??? albuterol ??? dextrose OR dextrose ??? glucagon ??? haloperidol ??? ondansetron Physical Exam: General: alert, cooperative, no distress, appears stated age HEENT: Head:normacephalic, Eyes: Perrla, EOMI bilaterally, nasal and oral mucosal pink and moist Heart: normal rate, regular rhythm, normal S1, S2, no murmurs, rubs, clicks or gallops Lungs: clear to auscultation, no wheezes or rales and unlabored breathing Abdomen: soft, nontender, nondistended, no masses or organomegaly Extremities: peripheral pulses normal, no pedal edema, no clubbing or cyanosis Neuro: alert, oriented x 3, no defects noted in general exam. Lab Data Laboratory review: Chemistry CMP: Lab Results Component Value Date BUNSER 22 05/16/2021 CALCIUM 8.1 (L) 05/16/2021 CO2 20 (L) 05/16/2021 CHLORIDE 101 05/16/2021 CREATININE 0.68 (L) 05/16/2021 GLUCOSE 135 05/16/2021 GLUCOSE 96 05/16/2021 POTASSIUM 3.8 05/16/2021 SODIUM 132 (L) 05/16/2021 , CBC: Lab Results Component Value Date WBC 6.2 05/16/2021 RBC 3.34 (L) 05/16/2021 HGB 9.9 (L) 05/16/2021 HCT 30.8 (L) 05/16/2021 MCV 92.2 05/16/2021 MCH 29.6 05/16/2021 MCHC 32.1 (L) 05/16/2021 RDWCV 13.4 05/16/2021 RDWSD 45.6 05/16/2021 MPV 11.7 05/16/2021 NRBCABS 0.00 05/16/2021 , Coags: No results found for: PT, PTT, APTT, FFN, FIBRINOGEN, INR, ACTIVATEDCL, Lipids: No resultsfound for: CHOL, CHLPL, HDL, LDLCALC, TRIG, CHOLHDL, Cardiac Enzymes: No results found for: CKTOTAL, CKMB, CKMBINDEX, TROPONINT and POC Glucose: Lab Results Component Value Date GLUCOSE 135 05/16/2021 GLUCOSE 96 05/16/2021 Home Medications have been reviewed and updated on pt's list Assessment and Plan Near syncope/Syncope episode, probable vaso vagal, monitor ?? Acute anterior STEMI with CAD , s/p PCI to LAD -s/p CABG x 4 05/04 given re thrombosis of existing stents -s/p IABP, removed 05/06 - s/p Dobutamine gtt - ASA, ??statins, BBs -Plavix dc;d ?? Post CABG cardiogenic shock - s/p fluid resuscitation , Levophed - off ??Dobutamine gtt ?? Ventricular fibrillation - briefly on 05/03 - treated with Amiodarone ; now off Dobutamine ?? Gross Hematuria ?- in a pt with hx of ??cystoscopy, -clot evacuation and transurethral resection of bladder tumor at [facility] -s/p 20??German three way catheter, urine still bloody -holding Plavix and Lovenox -cysto 05/14 with clot evacuation and fulguration ?? Acute resp failure - self ext 05/05/21 -Lung infiltrates - pulm vascular congestion versus pneumonia - changed to Zosyn due to worsening Leukocytosis -on 5L NC -back on IV Lasix -pulmonology follows - tolerate cysto well ?? Type 2 diabetes.??- Lantus, ssi w accu, follow fs to adjust ?? Acute blood loss anemia ; -s/p PRBC transfusions in ICU - monitor HH, today 9.9 ?? Mild hyponatremia, monitor ?? Hx of ??Tobacco use. ?? Vitamin-D deficiency.- stable DVT prophylaxis :Lovenox Pt will need continued inpatient management for the above medical issues. Code status: full Anibal Hughes MD [facility] Hospitalist 05/16/2021 12:49 PM F FORESTER * Alejandro Pratt MD - 05/16/2021 11:20 AM CST Pulmonary Daily Progress Chief complaint/reason for consult: Respiratory failure. Interval History: Pt with increased oxygen requirements overnight Was 4 lpm yesterday, needing 8 lpm last night, now 6 lpm Breathing comfortably; has occasional cough No chest pain Not getting out of bed yet today No fevers Presenting History: 60 yo man w COPD, DM, CAD/stents admitted 05/01/21 with chest pain. Had recent hematuria as well. Workup revealed an acute MT. Cath showed multi-vessel CAD. Had balloon pump placed. CABG x 4 done on 05/04/21. He was continued on mechanical ventilation and self extubated this AM (05/05/21). He is on multiple pressors. Sedated with precedex. Some tachypnea. A balloon pump is in place. Current tobacco use. COPD listed as prior diagnosis. No inhalers on home med list. Allergies: Allergies Allergen Reactions ??? Metoclopramide Medications: Scheduled Meds:aspirin, 81 mg, oral, Daily atorvastatin, 80 mg, oral, Nightly docusate sodium, 100 mg, oral, BID enoxaparin, 40 mg, subcutaneous, Daily-2100 furosemide, 40 mg, intravenous, TID guaiFENesin ER, 600 mg, oral, BID insulin glargine, 24 Units, subcutaneous, Nightly insulin lispro, 0-10 Units, subcutaneous, TID with meals insulin lispro, 0-5 Units, subcutaneous, Nightly insulin lispro, 10 Units, subcutaneous, TID with meals metoprolol tartrate, 12.5 mg, oral, BID pantoprazole DR, 40 mg, oral, Daily piperacillin-tazobactam, 3.375 g, intravenous, Q6H LEAH polyethylene glycol, 17 g, oral, BID potassium chloride ER, 20 mEq, oral, BID QUEtiapine, 25 mg, oral, Daily QUEtiapine, 50 mg, oral, Nightly sodium chloride 0.9%, 0.5-20 mL, intra-catheter, Q8H LEAH Continuous Infusions: PRN Meds:.??? acetaminophen ? ? al & mag hydroxide ivukuwbagls-ozbauepoetqrjis-aixgmkzpf-nystatin ??? albuterol ??? dextrose OR dextrose ??? glucagon ??? haloperidol ??? ondansetron ROS Above review of system reviewed on 05/16/2021 Vitals: Vitals: 05/16/21 0400 05/16/21 0712 05/16/21 0715 05/16/21 0729 BP: 91/57 102/64 BP Location: Right arm Right arm Patient Position: Lying Lying Pulse: 92 97 93 99 Resp: 22 Temp: 36.3 ??C (97.4 ??F) 36.6 ??C (97.9 ??F) TempSrc: Oral Oral SpO2: 92% (!) 87% 93% 94% Weight: Height: Temp (24hrs), Av.7 ??C (98.1 ??F), Min:36.3 ??C (97.4 ??F), Max:37 ??C (98.6 ??F) Intake/Output Summary (Last 24 hours) at 05/16/2021 1120 Last data filed at 05/16/2021 0945 Gross per 24 hour Intake 1124 ml Output 1512 ml Net -388 ml Physical Exam Constitutional: General: He is not in acute distress. Appearance: He is well-developed. HENT: Head: Normocephalic and atraumatic. Eyes: Conjunctiva/sclera: Conjunctivae normal. Neck: Thyroid: No thyromegaly. Cardiovascular: Rate and Rhythm: Normal rate and regular rhythm. Heart sounds: No murmur heard. Pulmonary: Effort: Pulmonary effort is normal. No respiratory distress. Breath sounds: Normal breath sounds. No stridor. No wheezing or rales. Chest: Comments: Sternotomy incision Abdominal: General: Bowel sounds are normal. Palpations: Abdomen is soft. Skin: General: Skin is warm and dry. Neurological: Mental Status: He is alert. Lab/Radiology/Diagnostic Review: Labs: Recent Labs Lab Units 05/16/21 0542 05/15/21 0532 05/14/21 0922 WBC K/cumm 6.2 9.4 8.8 HEMOGLOBIN g/dL 9.9* 10.7* 10.2* HEMATOCRIT % 30.8* 32.2* 30.2* PLATELETS K/cumm 241 270 271 Recent Labs Lab Units 05/16/21 0751 05/16/21 0542 05/16/21 0243 05/15/21 0730 05/15/21 0533 05/14/21 1147 05/14/21 0922 SODIUM mmol/L -- 132* -- -- 131* -- 129* POTASSIUM PLASMA mmol/L -- 3.8 -- -- 3.8 -- 4.0 CHLORIDE mmol/L -- 101 -- -- 98 -- 97 CO2 mmol/L -- 20* -- -- 21* -- 20* ANIONGAP mmol/L -- 11 -- -- 12 -- 12 GLUCOSE mg/dL -- 96 -- -- 117 < > 148 POC GLUCOSE MONITOR mg/dL 135 -- 95 < > -- < > -- BUN SERUM mg/dL -- 22 -- -- 22 -- 16 CREATININE mg/dL -- 0.68* -- -- 0.70* -- 0.59* CALCIUM mg/dL -- 8.1* -- -- 8.3* -- 8.4* < > = values in this interval not displayed. Imaging: CXR 05/16: CM, hazy left chest, L basilar atelectasis Other diagnostic tests: I have personally reviewed above laboratory findings, chest imaging, and diagnostic tests 05/16/2021 Assessment and Plan: Acute respiratory failure Acute MT w CAD s/p CABG x 4 on 05/04/21, past hx multiple stents Cardiogenic shock Cardiomyopathy EF 40% V fib Hx COPD Anemia Infiltrates: edema v pna, tracheal aspirate w yeast Hematuria s/p cystoscopy/fulguration ?? Recs: Oxygen as required. Wean as tolerated Incentive spirometry abx coverage for pna: d 7 Zosyn Scheduled bronchodilators Increase activity Chart reviewed F FORESTER * Tereza Mccullough NP - 05/16/2021 9:23 AM CST Nephrology Progress Note [facility] SUBJECTIVE 05/16 Creatinine stable and sodium trending up.On IV lasix,lytes wnl.Osorio out,having some problems with retention- nurses in contact with urology,doing bladder scans. 05/15/21 Doing fair. Osorio out. Has not voided yet. Na 131 with loop diuresis and improved. All labs and data reviewed. Excellent UO. Doing fair. Some flank pain and mild dyspnea. Na 127 and a little lower. BP better. Agreeable to cysto, but urology planning on conservative tx. Will start loop diuresis. OBJECTIVE Vitals: Vitals: 05/16/21 0400 05/16/21 0712 05/16/21 0715 05/16/21 0729 BP: 91/57 102/64 BP Location: Right arm Right arm Patient Position: Lying Lying Pulse: 92 97 93 99 Resp: 22 Temp: 36.3 ??C (97.4 ??F) 36.6 ??C (97.9 ??F) TempSrc: Oral Oral SpO2: 92% (!) 87% 93% 94% Weight: Height: Intake/Output Summary (Last 24 hours) at 05/16/2021 0923 Last data filed at 05/16/2021 0400 Gross per 24 hour Intake 837 ml Output 1275 ml Net -438 ml REVIEW OF SYSTEMS Review of Systems Constitutional: Negative. HENT: Negative. Eyes: Negative. Respiratory: Negative. Cardiovascular: Negative. Gastrointestinal: Negative. Genitourinary: Negative. Musculoskeletal: Negative. Skin: Negative. Allergic/Immunologic: Negative. Hematological: Negative. All other systems reviewed and are negative. PHYSICAL EXAM Physical Exam Constitutional: Appears well-developed. O2 on HENT: wnl Head: Normocephalic. Eyes: Pupils are equal, round, and reactive to light. Neck: Normal range of motion. Neck supple. Cardiovascular: Normal rate. Pulmonary/Chest: Effort normal and breath sounds normal. Abdominal: Soft. NT,active BS Musculoskeletal: Normal range of motion. Neurological: Alert, oriented. Skin: Skin is warm. Nursing note and vitals reviewed. MEDICATIONS Current Facility-Administered Medications: ??? acetaminophen (TYLENOL) tablet 650 mg, 650 mg, oral, Q6H PRN, Eleonora Duarte NP, 650 mg at 05/15/21 1816 ? ? al & mag hydroxide dlsvwrrhgjt-rvibzeaxgqhwyfj-iteoqwbni-nystatin (MAGIC MOUTHWASH) suspension 1-1-1-1, 20 mL, swish & spit, Q4H PRN, Tiana Spence NP, 20 mL at 05/12/21 1457 ??? albuterol 2.5 mg /3 mL (0.083 %) nebulizer solution 2.5 mg, 2.5 mg, nebulization, Q4H PRN (RT),Ralf Tomlinson MD ??? aspirin enteric coated tablet 81 mg, 81 mg, oral, Daily, Varsha Crowder, EFREN, 81 mg at 05/16/21 0909 ??? atorvastatin (LIPITOR) tablet 80 mg, 80 mg, oral, Nightly, Rhina Granados MD, 80 mg at 05/14/21 2208 ??? dextrose oral liquid liquid 15 g, 15 g, oral, Q15 Min PRN OR dextrose (D10W) 10% bolus 250 mL, 250 mL, intravenous, Q15 Min PRN, Anibal Lara MD ??? docusate sodium (COLACE) capsule 100 mg, 100 mg, oral, BID, 100 mg at 05/15/21 0944 OR [DISCONTINUED] docusate (COLACE) 10 mg/mL oral liquid 100 mg, 100 mg, feeding tube, BID, Rhina Granados MD, 100 mg at 05/05/21 0842 ??? enoxaparin (LOVENOX) syringe 40 mg, 40 mg, subcutaneous, Daily-2100, Rhina Granados MD, 40 mg at 05/15/21 2224 ??? furosemide (LASIX) 10 mg/mL injection 40 mg, 40 mg, intravenous, TID, Laly Lopes MD ??? glucagon injection 1 mg, 1 mg, intramuscular, Q30 Min PRN, Anibal Lara MD ??? guaiFENesin ER (MUCINEX) extended release tablet 600 mg, 600 mg, oral, BID, Tiana Spence NP, 600 mg at 05/16/21 0909 ??? haloperidol (HALDOL) injection 2 mg, 2 mg, intramuscular, Q8H PRN, Varsha Crowder NP ??? insulin glargine (LANTUS, SEMGLEE) 100 unit/mL injection 24 Units, 24 Units, subcutaneous, Nightly, Sixto Fish MD, 24 Units at 05/15/21 2238 ??? insulin lispro (HumaLOG, ADMELOG) 100 unit/mL injection 0-10 Units, 0-10 Units, subcutaneous, TID with meals, Anibal Lara MD, 4 Units at 05/15/21 1848 ??? insulin lispro (HumaLOG, ADMELOG) 100 unit/mL injection 0-5 Units, 0-5 Units, subcutaneous, Nightly, Anibal Lara MD, 1 Units at 05/15/21 2142 ??? insulin lispro (HumaLOG, ADMELOG) 100 unit/mL injection 10 Units, 10 Units, subcutaneous, TID with meals, Sixto Fish MD, 10 Units at 05/16/21 0912 ??? metoprolol tartrate (LOPRESSOR) immediate release tablet 12.5 mg, 12.5 mg, oral, BID, Eleonora Duarte NP, 12.5 mg at 05/16/21 0909 ??? ondansetron (ZOFRAN) injection 4 mg, 4 mg, intravenous, Q6H PRN, Rhina Granados MD ??? pantoprazole DR (PROTONIX) extended release tablet 40 mg, 40 mg, oral, Daily, Rhina Granados MD, 40 mg at 05/16/21 0909 ??? piperacillin-tazobactam (ZOSYN) 3.375 g in sodium chloride 0.9% 100 mL IVPB, 3.375 g, intravenous, Q6H LEAH, Eleonora Duarte NP, Last Rate: 200 mL/hr at 05/16/21 0534, 3.375 g at 05/16/21 0534 ??? polyethylene glycol (MIRALAX) packet 17 g, 17 g, oral, BID, Rhina Granados MD, 17 g at 05/15/21 0949 ??? potassium chloride ER (KLOR-CON) extended release tablet 20 mEq, 20 mEq, oral, BID, Eleonora Duarte NP, 20 mEq at 05/16/21 0909 ??? QUEtiapine (SEROquel) tablet 25 mg, 25 mg, oral, Daily, Varsha Crowder NP, 25 mg at 05/16/21 0911 ??? QUEtiapine (SEROquel) tablet 50 mg, 50 mg, oral, Nightly, Varsha Crowder NP, 50 mg at 05/15/21 2224 ??? sodium chloride 0.9% flush 0.5-20 mL, 0.5-20 mL, intra-catheter, Q8H [facility] MORGANTONDarwin Nabil A., MD, 10 mL at 05/16/21 0535 Lab/Radiology/Diagnostic Review: Recent Results (from the past 24 hour(s)) POCT glucose Collection Time: 05/15/21 12:06 PM Result Value Ref Range Glucose, POC 189 70 - 199 mg/dL POCT glucose Collection Time: 05/15/21 5:05 PM Result Value Ref Range Glucose, POC 217 (H) 70 - 199 mg/dL POCT glucose Collection Time: 05/15/21 8:42 PM Result Value Ref Range Glucose, POC 177 70 - 199 mg/dL POCT glucose Collection Time: 05/16/21 2:43 AM Result Value Ref Range Glucose, POC 95 70 - 199 mg/dL Basic metabolic panel Collection Time: 05/16/21 5:42 AM Result Value Ref Range Sodium 132 (L) 135 - 145 mmol/L Potassium, pl 3.8 3.3 - 4.9 mmol/L Chloride 101 97 - 110 mmol/L CO2 20 (L) 22 - 32 mmol/L Anion gap 11 2 - 15 mmol/L BUN 22 8 - 25 mg/dL Creatinine 0.68 (L) 0.80 - 1.30 mg/dL Glucose 96 70 - 199 mg/dL Calcium 8.1 (L) 8.5 - 10.3 mg/dL Phosphorus Collection Time: 05/16/21 5:42 AM Result Value Ref Range Phosphorus, pl 3.2 2.3 - 4.5 mg/dL Magnesium Collection Time: 05/16/21 5:42 AM Result Value Ref Range Magnesium 2.0 1.4 - 2.5 mg/dL CBC without differential Collection Time: 05/16/21 5:42 AM Result Value Ref Range WBC 6.2 3.8 - 9.9 K/cumm Hgb 9.9 (L) 13.0 - 17.5 g/dL Hct 30.8 (L) 38.9 - 50.3 % Plt 241 150 - 400 K/cumm MPV 11.7 9.1 - 12.3 fL RBC 3.34 (L) 4.30 - 5.80 M/cumm MCV 92.2 81.3 - 96.4 fL MCH 29.6 27.1 - 33.3 pg MCHC 32.1 (L) 32.3 - 35.7 g/dL RDW CV 13.4 11.1 - 14.9 % RDW SD 45.6 35.7 - 48.1 fL NRBC abs 0.00 0.00 - 0.01 K/cumm eGFR Collection Time: 05/16/21 5:42 AM Result Value Ref Range eGFR 105 mL/min/1.73 m2 POCT glucose Collection Time: 05/16/21 7:51 AM Result Value Ref Range Glucose, POC 135 70 - 199 mg/dL XR Chest 1 View - Portable - in AM Result Date: 05/11/2021 Narrative: EXAMINATION: XR CHEST 1 VIEW HISTORY: The patient is a 60-year-old male who has had cardiac surgery. Comparison made with the previous study dated 05/10/2021. TECHNIQUE: AP portable view of the chest. FINDINGS: Lungs clear. Heart not enlarged. Aortic atherosclerosis. No failure. The right IJ [place] catheter has been retracted with its tip in the distal superior vena cava. Impression: IMPRESSION: No failure. Electronically signed by: Elvira Blackman M.D. XR Chest 1 View - Portable - in AM Result Date: 05/10/2021 Narrative: EXAMINATION: XR CHEST 1 VIEW DATE: 05/10/2021 2:40 AM COMPARISON: 05/09/2021 HISTORY: 60-year-old man cardiac surgery follow-up FINDINGS:Compared with study the previous day, significant improvement. There is cardiomegaly with postsurgical changes with continued and decreasing failure. Bibasilar atelectasis with left pleural fluid decreasing. No pneumothorax. [place] catheter remainsin place Impression: Decreasing failure, atelectasis and left effusion. Electronically signed by: Deandre Lomeli M.D. XR Chest 1 View - Portable - in AM Result Date: 05/09/2021 Narrative: EXAMINATION: XR CHEST 1 VIEW DATE: 05/09/2021 4:10 AM HISTORY: 60-year-old man cardiac surgery follow-up FINDINGS:Compared with study the previous day, significant improvement. There is cardiomegaly with postsurgical changes with continued but decreasing failure. Bibasilar atelectasis with left pleural fluid decreasing. No pneumothorax. [place] catheter remains in place Impression: Decreasing failure, atelectasis and left effusion. Electronically signed by: Deandre Lomeli M.D. XR Chest 1 View - Portable - in AM Result Date: 05/08/2021 Narrative: EXAMINATION: XR CHEST 1 VIEW DATE: 05/08/2021 4:15 AM HISTORY: 60-year-old man cardiac surgery follow-up FINDINGS:Compared with study the previous day, significant improvement. There is cardiomegaly with postsurgical changes with continued but decreasing failure. Bibasilar atelectasis with left pleural fluid. No pneumothorax. [place] catheter remains in place Impression: Decreasing failure. No pneumothorax. Electronically signed by: Deacon Cummings M.D. XR Chest 1 View - Portable - in AM Result Date: 05/07/2021 Narrative: EXAMINATION: XR CHEST 1 VIEW DATE: 05/07/2021 3:55 AM HISTORY: 60-year-old man follow-upcardiac surgery FINDINGS:Compared with study of the previous day, postsurgical changes in the heartand mediastinum with cardiomegaly are stable. [place] catheter remains in place. Left thoracostomy tube remains in place. No pneumothorax. Pulmonary vascular congestion with interstitial lung disease remain prominent. Impression: Persistent prominent interstitial lung disease with failure. Electronically signed by: Deacon Cummings M.D. XR Chest 1 View - Portable - in AM Result Date: 05/06/2021 Narrative: EXAMINATION: XR CHEST 1 VIEW DATE: 05/06/2021 4:05 AM INDICATION: Cardiac surgery. COMPARISON: 05/05/2021. FINDINGS: No pneumothorax or pleural effusion. Similar-appearing pulmonary vascular congestion and interstitial opacities most notable in the bilateral upper lobes consistent with pulmonary edema. Pulmonary catheter catheter, left thoracostomy tube, and mediastinal drain are appropriately position. Intra-aortic balloon pump is appropriately positioned. Interval removal of endotracheal tube. Impression: 1. Interval removal of endotracheal tube. Remaining tubes and lines are appropriately positioned. 2. Similar-appearing cardiomegaly, pulmonary vascular congestion, and prominent bilateralinterstitial markings suggestive of interstitial pulmonary edema. Electronically signed by: Richard Zhao II, D.O. XR Chest 1 View - Portable - in AM Result Date: 05/05/2021 Narrative: EXAMINATION: XR CHEST 1 VIEW DATE: 05/05/2021 4:15 AM HISTORY: 60-year-old man cardiac surgery follow-up FINDINGS:Compared with the study of the prior day, tubes and catheters remain satisfactorily positioned. Worsening pulmonary vascular congestive changes are seen. Cardiomegaly with postsurgical changes stable. No pneumothorax. Impression: Increasing failure. Electronically signed by: Deacon Cummings M.D. XR Chest 1 Vw Portable Result Date: 05/05/2021 Narrative: EXAMINATION: XR CHEST 1 VIEW DATE: 05/04/2021 8:40 PM HISTORY: 60-year-old man coronary artery bypass follow-up FINDINGS:Compared with the study of earlier the same day, postsurgical changes now evident within the heart and mediastinum with cardiomegaly. Interval placement of endotracheal tube, nasogastric tube, [place]-Radha catheter, left thoracostomy tube and mediastinal drain all in satisfactory position. No pneumothorax. Interstitial lung disease with mild pulmonary vascular congestive changes. Aortic balloon pump is no longer seen. Impression: Tube placements with postsurgical changes with cardiomegaly with interstitial lung disease and mild failure with no pneumothorax. Electronically signed by: Deacon Cummings M.D. XR Chest 1 Vw Portable Result Date: 05/04/2021 Narrative: EXAMINATION: XR CHEST 1 VIEW DATE: 05/04/2021 9:05 AM HISTORY: Coronary artery disease FINDINGS:Comparison is made with study of 2 days earlier. Cardiomegaly, COPD with interstitial lung disease stable. Mild failure. Aortic balloon pump stable in position at the proximal descending aorta. No pneumothorax. No new infiltrates. Impression: Stable appearance. COPD cardiomegaly, with mild failure suspected. Electronically signed by: Deacon Cummings M.D. XR Chest 1 Vw Portable Result Date: 05/02/2021 Narrative: EXAMINATION: XR CHEST 1 VIEW DATE: 05/02/2021 5:15 AM INDICATION: Intra-aortic balloon pump. COMPARISON: 05/01/2021. FINDINGS: Appropriately positioned intra-aortic balloon pump appears unchanged. No pneumothorax or pleural effusion. Mixed reticular and alveolar opacities demonstrated inall lung lobes appear most significant in the upper lobes and perihilar regions, unchanged. Impression: 1. Appropriately positioned intra-aortic balloon pump. 2. Similar mixed reticular and alveolar opacities most notable in the bilateral upper lobes and perihilar region. Electronically signed by: Richard Lopez II, D.O. XR Chest 1 Vw Portable Result Date: 05/02/2021 Narrative: EXAMINATION: XR CHEST 1 VIEW DATE: 05/01/2021 8:15 PM INDICATION: Hypoxia. COMPARISON: None. FINDINGS: No pneumothorax. No pleural effusion. Mixed reticular and alveolar opacities are demonstrated in all lung lobes but demonstrate an upper lobe and perihilar predominance. Findings may represent pulmonary edema on background of centrilobular emphysematous changes. Underlying infectious process not entirely excludable. Cardiac mediastinal silhouette is stable in appearance. No acute osseous abnormality. Impression: Mixed reticular and alveolar opacities are demonstrated in all lung lobes but demonstrate an upper lobe and perihilar predominance. Findings may represent pulmonary edema on background ofcentrilobular emphysematous changes. Electronically signed by: Richard Lopez II, D.O. Transthoracic Echo (TTE) Limited Result Date: 05/07/2021 Narrative: [place] [address] Limited Echocardiogram Report Patient Name: DEEPAK ALVARADO : 1960 StudyDate: 05/07/2021 12:16:52 PM Gender: M Tech: Location: [place] [address] Ref.Provider: RHINA GRANADOS Height(Cm): 175 BSA: 2.1 Weight(Kg): 91 Heart Rate: 82 BP: 127/44 Quality: Good Order Provider: Dr. Sutton Procedures: Echocardiographic Report: Limited transthoracic echocardiogram with 2D and M-Mode. Measurements: 2D/M Mode Measurement Value Normal Range LVIDd 2D 3.43 [ 4.20 -5.90 ] cm LVIDs 2D 2.59 [ 2.30 - 3.90 ] cm LVPWd 2D 1.01 [ 0.60 - 1.00 ] cm IVSd 2D 0.71 [ 0.60 - 0.90 ] cm Findings: Left Ventricle: Reduced left ventricular cavity size. Mild global left ventricular systolic dysfunction. Ejection fraction is measured at 42 %. These segments of the LV are hypokinetic: apical anterior segment. Pericardium: Trivial pericardial effusion. No echocardiographic evidence to suggest pericardial tamponade. Conclusions: Reduced left ventricular cavity size. Mild globalleft ventricular systolic dysfunction. Ejection fraction is measured at 42 %. These segments of theLV are hypokinetic: apical anterior segment. Trivial pericardial effusion. No echocardiographic evidence to suggest pericardial tamponade. Electronically Signed By: Gianni Francois MD, [facility] 2021-05-07 12:54:09 STAFF FORESTER Transthoracic Echo Complete W Doppler/CF Result Date: 05/02/2021 Narrative: [place] [address] Echocardiogram Report Patient Name: DEEPAK ALVARADO W : 1960 Study Date: 05/02/2021 8:50:02 AM Gender: M Tech: Location: [place] [address] Ref Provider: NALINI CLAYTONHeight(Cm): 175 BSA: 2.11 Weight(Kg): 92 Heart Rate: 89 BP: 102/52 Quality: Good Order Provider: NALINI CLAYTON PROCEDURES: Echocardiographic Report: Transthoracic echocardiogram with complete 2D, M-Mode, and color Doppler examination. INDICATIONS: Free Text. Measurements: 2D/M Mode DopplerMeasurement Value Normal Range Measurement Value Normal Range EF Teich 2D 30.0 [ 55.0 - 70.0 ] percent CHRISTINA Vmax 2.04 [ 2.00 - 4.00 ] cm2 EF Mod 4C 42.2 [ 55.0 - 70.0 ] percent AV Mean PG 5 [ 2 - 4 ] mmHg LVIDd 2D 4.54 [ 4.20 - 5.90 ] cm AV Peak Ramesh 1.54 [ 1.00 - 1.70 ] m/s LVIDs 2D 3.91 [ 2.30 - 3.90 ] cm AV VTI 26.93 cm LVPWd 2D 0.92 [ 0.60 - 1.00 ] cm LVOT Diam 2.20 [ 1.70 - 2.10 ] cm IVSd 2D 0.76 [ 0.60 - 0.90 ] cm LVOT Peak Ramesh 0.83 [ 0.70 - 1.10 ] m/s LA Dimension MM 5.08 [ 3.00 - 4.00 ] cm LVOT VTI 13.82 [ 20.00 - 30.00 ] cm AoR Diam MM 4.12 [ 2.60 - 3.70 ] cm MV E Peak Ramesh 0.85 [ 0.60- 1.30 ] m/s LA Volume Index 20.83 [ 16.00 - 28.00 ] cc/m2 MV A Peak Ramesh 1.14 [ 1.00 - 1.20 ] m/s ACS MM 1.91 [ 1.50 - 2.60 ] cm MV Mean PG 1 [ <= 5 ] mmHg MV PHT 43 [ 20 - 100 ] msec MVA 2.20 MV Decel Time 137 [ 104 - 258 ] msec PV Peak Ramesh 1.10 [ 0.40 - 0.80 ] m/s TR Peak Ramesh 1.32 [ 1.00 - 2.80 ] m/s TR Peak PG 7 mmHg RVSP 16.93 [ 10.00 - 36.00 ] mmHg E' 0.06 E/E' 14.00 Measurement Value Normal Range Measurement Value Normal Range 2D/M Mode Doppler - FINDINGS: Atrial Septum: Normal atrial septum. Left Ventricle: Normal left ventricular size. Left ventricle not well visualized. There is severe hypokinesis of the mid anteroseptal, anterior, and apical mancilla. Normal left ventricularwall thickness. Impaired diastolic relaxation Grade I. Ejection fraction is visually estimated at 40 %. Left Atrium: The left atrium is normal in size. Right Ventricle: Normal right ventricular size.Normal right ventricular systolic function. Right Atrium: The right atrium is normal in size. Aortic Valve: Normal structure of the aortic valve. No evidence of hemodynamically significant aortic stenosis by Doppler. No aortic regurgitation. Mitral Valve: Normal structure of the mitral valve. Trivial regurgitation of the mitral valve. Pulmonic Valve: Pulmonic valve not well visualized. Trivial reg urgitation in the pulmonic valve. Tricuspid Valve: Normal structure of the tricuspid valve. Trivialregurgitation in the tricuspid valve. Pericardium: Normal pericardium with no significant pericardial effusion. Aorta: Normal aortic root. IVC: Normal size and normal respiratory collapse consistent with normal right atrial pressure (<5 mmHg). CONCLUSIONS: Technically difficult study with limited views. Normal left ventricular size. Left ventricle not well visualized. There is severe hypokinesis of the mid anteroseptal, anterior, and apical mancilla. Normal left ventricular wall thickness. Impaired diastolic relaxation Grade I. Ejection fraction is visually estimated at 40 %. Normal right ventricular size. Normal right ventricular systolic function. Normal structure of the mitral valve. Trivial regurgitation of the mitral valve. Normal structure of the tricuspid valve. Trivial regurgitation in the tricuspid valve. Electronically Signed By: Rylee Brito, , FACC, [place] 2021-05-02 14:07:25 STAFF FORESTER CC: CC: CC: ASSESSMENT/PLAN Hyponatremia from SIADH and possibly from zaroxylyn use. Work up for hyponatremia ongoing. PO FR. DC Zaroxylyn. No normotonic fluids yet. Urine lytes and osm. If in clinical fluid overload, may use tolvaptan. Renal fn is normal. Na better with loop diuresis, will continue. ?? Recent bladder tumor removal with hematuria. ?? -??Urology is following.H/H stable -Cysto vs conservative tx. -Voiding trial. ?? Hypokalemia from diuresis. Replace PRN. ?? 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 ?? Syncopal episode -(+) orthostasis -receiving albumin -IV lasix was discontinued. ??There is a 1x order for zaroxolyn 10mg this am- recommend holding fornow. ??D/w RN ?? Coronary artery disease -s/p CABG post STEMI -??underwent four-vessel bypass ??MAE to the LAD, sequential saphenous vein graft to diagonal and obtuse marginal and a vein graft to the PDA. -s/p??low dose dobutamine -paced rhythm -??IV??diuretics??discontinued d/t syncopal episode today (see above) ?? Moderate LV dysfunction -s/p IV??lasix??and??low dose??dobutamine -Beta blockers, ??[place] once off dobutamine-would hold off adding given syncopal episode this am -repeat ECHO 05/07 EF 42% (see above) ?Nonsustained ventricular tachycardia -no recurrence of VT -K 3.7, Mg??2.0. ??Supplement to keep K >/= 4.0, Mg >/= 2.0 ?Diabetes mellitus -?on lantus and SSI ?? COPD: ?? -on?O2 NC??4L (dried blood to L nare humidified o2 ordered) ?? Dyslipidemia -?Continue atorvastatin. ?PAD -?Stable ? Anemia -Hb??11.4 (10.5)??(8.6) -monitor ?? I can be reached at [phone] with any concerns. Thank you Rhina Granados MD for the consult. Tereza Mccullough NP [facility] [phone] Cosigned by Ashley Fox MD at 05/22/2021 11:26 AM STAFF FORESTER F FORESTER F FORESTER * Laly Lopes MD - 05/16/2021 9:09 AM CST Cardiothoracic Surgery Progress Note Deepak Alvarado 1960 Hospital DAY#15 10 Days Post-Op s/p: Procedures: * Coronary artery bypass grafting x4, placement of left QUINN to the LAD, saphenous vein graft to thediagonal artery and obtuse marginal in a sequential fashion, saphenous vein graft to the PDA- [place] Subjective: Osorio removed yesterday per , has condom cath and voiding without issue. Still with high O2 requirement, but able to pull 2000 mL on IS. OBJECTIVE: Vitals: Temp: [36.3 ??C (97.4 ??F)-37 ??C (98.6 ??F)] 36.6 ??C (97.9 ??F) Pulse: [87-119] 99 BP: (88-107)/(55-72) 102/64 Resp: [18-22] 22 SpO2: [83 %-96 %] 94 % Wt Readings from Last 3 Encounters: 05/14/21 79 kg (174 lb 2.6 oz) 08/27/13 114.3 kg (252 lb) 10/19/12 111.6 kg (246 lb) I/O last 2 completed shifts: In: 837 [P.O.:837] Out: 1275 [Urine:1275] -1350 for 24, -[id number] for stay Physical Exam HENT: Mouth/Throat: Mouth: Mucous membranes are moist. Eyes: Pupils: Pupils are equal, round, and reactive to light. Cardiovascular: Rate and Rhythm: Normal rate and regular rhythm. Pulses: Normal pulses. Heart sounds: Normal heart sounds. Comments: SR Pulmonary: Effort: Pulmonary effort is normal. Breath sounds: Normal breath sounds. Genitourinary: Comments: Osorio- dark blood tinged urine Musculoskeletal: General: Normal range of motion. Right lower leg: No edema. Left lower leg: No edema. Skin: Comments: Sternum covered with silver Saph sites steristipped ZULEIKA Neurological: General: No focal deficit present. Mental Status: He is alert and oriented to person, place, and time. Psychiatric: Behavior: Behavior normal. Access: central line Recent Labs Lab Units 05/16/21 0542 05/15/21 0532 05/14/21 0922 WBC K/cumm 6.2 9.4 8.8 HEMOGLOBIN g/dL 9.9* 10.7* 10.2* HEMATOCRIT % 30.8* 32.2* 30.2* PLATELETS K/cumm 241 270 271 Recent Labs Lab Units 05/16/21 0542 05/15/21 0533 05/14/21 0922 SODIUM mmol/L 132* 131* 129* POTASSIUM PLASMA mmol/L 3.8 3.8 4.0 CHLORIDE mmol/L 101 98 97 CO2 mmol/L 20* 21* 20* BUN SERUM mg/dL 22 22 16 CREATININE mg/dL 0.68* 0.70* 0.59* CALCIUM mg/dL 8.1* 8.3* 8.4* Recent Labs Lab Units 05/12/21 1226 PROTIME (PT) sec 14.0* INR 1.3* APTT sec 29 Imaging: Today's CXR left atelectasis Assessment and Plan: 60 y.o. male 10 Days Post-Op s/p Coronary artery bypass grafting x4, placement of left QUINN to the LAD, saphenous vein graft to the diagonal artery and obtuse marginal in a sequential fashion, saphenous vein graft to the PDA 05/04/[address] Granados Neuro: Ax0x4, Continue Seroquel as scheduled. CVS: NSR 90's. BP soft, Metoprolol changed to XL per cards- will change back to tartrate as patients pressures were better controlled. Continue ASA, no Plavix for hematuria Pulm: On HFNC, CXR today very wet. Increase diuresis, cont pulm toilet. On empiric Zosyn, WBCs normal. Wean O2 GI: Heart Healthy DM2 Diet-- +flatus -BM Renal: Lasix 40 TID today, 10 metolazone ID: Continue Zosyn for total 7 days , WBC down trending D/L/T: D/c wires, DC central line : voiding spont Prophylaxis: SCDs, Lovenox Endo. BS elevated, endocrine for management Dispo: Working on HH as patient is refusing placement at this time. Needs aggressive therapy, home O2 eval prior to returning home. Laly Lopes MD Cardiothoracic Surgery [facility] Cosigned by Moreno Whiting MD at 05/17/2021 10:43 AM STAFF FORESTER F FORESTER F FORESTER * Cristina Serrano, EFREN - 05/16/2021 7:38 AM CST Daily Progress SUBJECTIVE: Mr. Alvarado is resting quietly. No new complaints, but RN from night clerk auditor states that he has been retaining urine, and has been straight cathed once overnight. He continues to have some retention. OBJECTIVE: Vitals: 05/15/21 2330 05/16/21 0000 05/16/21 0400 05/16/21 0729 BP: (!) 88/55 91/57 102/64 BP Location: Left arm Right arm Right arm Patient Position: Lying Lying Lying Pulse: 98 87 92 99 Resp: Temp: 36.9 ??C (98.4 ??F) 36.3 ??C (97.4 ??F) 36.6 ??C (97.9 ??F) TempSrc: Oral Oral Oral SpO2: (!) 83% 94% 92% 94% Weight: Height: Intake/Output Summary (Last 24 hours) at 05/16/2021 0738 Last data filed at 05/16/2021 0400 Gross per 24 hour Intake 837 ml Output 1275 ml Net -438 ml Scheduled Medications Medication Dose Route Frequency ??? aspirin enteric coated tablet 81 mg 81 mg oral Daily ??? atorvastatin (LIPITOR) tablet 80 mg 80 mg oral Nightly ??? docusate sodium (COLACE) capsule 100 mg 100 mg oral BID ??? enoxaparin (LOVENOX) syringe 40 mg 40 mg subcutaneous Daily-2100 ??? furosemide (LASIX) 10 mg/mL injection 40 mg 40 mg intravenous BID DIURETIC ??? guaiFENesin ER (MUCINEX) extended release tablet 600 mg 600 mg oral BID ??? insulin glargine (LANTUS, SEMGLEE) 100 unit/mL injection 24 Units 24 Units subcutaneous Nightly ??? insulin lispro (HumaLOG, ADMELOG) 100 unit/mL injection 0-10 Units 0-10 Units subcutaneous TID with meals ??? insulin lispro (HumaLOG, ADMELOG) 100 unit/mL injection 0-5 Units 0-5 Units subcutaneous Nightly ??? insulin lispro (HumaLOG, ADMELOG) 100 unit/mL injection 10 Units 10 Units subcutaneous TID with meals ??? metoprolol tartrate (LOPRESSOR) immediate release tablet 12.5 mg 12.5 mg oral BID ??? pantoprazole DR (PROTONIX) extended release tablet 40 mg 40 mg oral Daily ??? piperacillin-tazobactam (ZOSYN) 3.375 g in sodium chloride 0.9% 100 mL IVPB 3.375 g [id number] LEAH ??? polyethylene glycol (MIRALAX) packet 17 g 17 g oral BID ??? potassium chloride ER (KLOR-CON) extended release tablet 20 mEq 20 mEq oral BID ??? QUEtiapine (SEROquel) tablet 25 mg 25 mg oral Daily ??? QUEtiapine (SEROquel) tablet 50 mg 50 mg oral Nightly ??? sodium chloride 0.9% flush 0.5-20 mL 0.5-20 mL intra-catheter Q8H LEAH LABS: Recent Labs Lab Units 05/16/21 0542 WBC K/cumm 6.2 HEMOGLOBIN g/dL 9.9* HEMATOCRIT % 30.8* PLATELETS K/cumm 241 Recent Labs Lab Units 05/16/21 0542 SODIUM mmol/L 132* POTASSIUM PLASMA mmol/L 3.8 CHLORIDE mmol/L 101 CO2 mmol/L 20* ANIONGAP mmol/L 11 GLUCOSE mg/dL 96 BUN SERUM mg/dL 22 CREATININE mg/dL 0.68* CALCIUM mg/dL 8.1* No results found for: BNP No results found for: TROPONINI Exam General: in no apparent distress Neuro: Alert and oriented x 3, moves all extremities well HEENT: normocephalic, atraumatic, Lungs: symmetric, unlabored, clear to auscultation bilaterally Heart: S1,S2, regular rate & rhythm, no murmurs, rubs, or gallops Abdomen: soft, non-tender, non-distended, bowel sounds present Extremities: no LE edema, palpable peripheral pulses BL ASSESSMENT/PLAN: 1. CAD status post CABG for STEMI -Cardiac cath on 05/01 with 40% distal LM; 100% prox LAD; 90% prox Cx; 50% prox and distal RCA -Left ventriculogram:??Moderate blanka-apical hypokinesis; echo on 05/02 with EF ~40% -balloon angioplasty was performed during acute MT and subsequently patient underwent CABG x4 on 05/04/2021 - ischemic cardiomyopathy EF 42%?? - Metoprolol Xl 12.5 mg daily, -?ACEi/ARB when blood pressure is more stable??- BP still remains soft (80's-100's) ?? 2. Dyslipidemia: -stable on Atorvastatin 80mg qday ?? 3. Diabetes -stable on insulin per primary team ?? 4. COPD: -stable without any acute issues ?? 5. PAD: - stable ?? 6. Hematuria- -Plavix is currently on hold??urology following??- -S/P cystoscopy 05/14 Approximately 500-600 mL of clots in the bladder evacuated. Bleeding from the previous tumor resection site approximately 3-4 cm in diameter which was fulgurated and hemostasis obtained. -still with condom cath on, but with urine retention - straight cathed overnight, and no urine in the bag with 319cc retention this am according to Bedside RN -H/H this am 9.9/30.8 ?? 7. Hypomagnesemia -Mg 2.0 today -K 3.8 supplement to keep K >/= 4.0 Cristina Serrano NP, MSN, ANP-[facility] 05/16/2021 7:38 AM F FORESTER F FORESTER * Yves Weinberg MD - 05/15/2021 4:36 PM CST Nephrology Progress Note [facility] SUBJECTIVE 05/15/21 Doing fair. Osorio out. Has not voided yet. Na 131 with loop diuresis and improved. All labs and data reviewed. Excellent UO. Doing fair. Some flank pain and mild dyspnea. Na 127 and a little lower. BP better. Agreeable to cysto, but urology planning on conservative tx. Will start loop diuresis. OBJECTIVE Vitals: Vitals: 05/15/21 1400 05/15/21 1500 05/15/21 1554 05/15/21 1600 BP: BP Location: Patient Position: Pulse: 98 107 119 117 Resp: Temp: TempSrc: SpO2: Weight: Height: Intake/Output Summary (Last 24 hours) at 05/15/2021 1636 Last data filed at 05/15/2021 1542 Gross per 24 hour Intake 1157 ml Output 3525 ml Net -2368 ml REVIEW OF SYSTEMS Review of Systems Constitutional: Negative. HENT: Negative. Eyes: Negative. Respiratory: Negative. Cardiovascular: Negative. Gastrointestinal: Negative. Genitourinary: Negative. Musculoskeletal: Negative. Skin: Negative. Allergic/Immunologic: Negative. Hematological: Negative. All other systems reviewed and are negative. PHYSICAL EXAM Physical Exam Constitutional: Appears well-developed. HENT: wnl Head: Normocephalic. Eyes: Pupils are equal, round, and reactive to light. Neck: Normal range of motion. Neck supple. Cardiovascular: Normal rate. Pulmonary/Chest: Effort normal and breath sounds normal. Abdominal: Soft. Musculoskeletal: Normal range of motion. Neurological: Alert, oriented. Skin: Skin is warm. Nursing note and vitals reviewed. MEDICATIONS Current Facility-Administered Medications: ??? acetaminophen (TYLENOL) tablet 650 mg, 650 mg, oral, Q6H PRN, Eleonora Duarte, ESCROW CLERK, 650 mg at 05/14/21 2231 ? ? al & mag hydroxide itwoyisrfal-ypeuazuidbhdfxi-ndmhcxnaj-nystatin (MAGIC MOUTHWASH) suspension 1-1-1-1, 20 mL, swish & spit, Q4H PRN, Tiana Spence NP, 20 mL at 05/12/21 1457 ??? albuterol 2.5 mg /3 mL (0.083 %) nebulizer solution 2.5 mg, 2.5 mg, nebulization, Q4H PRN (RT),Ralf Tomlinson MD ??? aspirin enteric coated tablet 81 mg, 81 mg, oral, Daily, Varsha Crowder NP, 81 mg at 05/15/21 0945 ??? atorvastatin (LIPITOR) tablet 80 mg, 80 mg, oral, Nightly, Rhina Granados MD, 80 mg at 05/14/21 2208 ??? dextrose oral liquid liquid 15 g, 15 g, oral, Q15 Min PRN OR dextrose (D10W) 10% bolus 250 mL, 250 mL, intravenous, Q15 Min PRN, Anibal Lara MD ??? docusate sodium (COLACE) capsule 100 mg, 100 mg, oral, BID, 100 mg at 05/15/21 0944 OR [DISCONTINUED] docusate (COLACE) 10 mg/mL oral liquid 100 mg, 100 mg, feeding tube, BID, Rhina Granados MD, 100 mg at 05/05/21 0842 ??? enoxaparin (LOVENOX) syringe 40 mg, 40 mg, subcutaneous, Daily-2100, Rhina Granados MD, 40 mg at 05/10/21 2141 ??? furosemide (LASIX) 10 mg/mL injection 40 mg, 40 mg, intravenous, BID DIURETIC, Laly Lopes MD, 40 mg at 05/15/21 1545 ??? glucagon injection 1 mg, 1 mg, intramuscular, Q30 Min PRN, Anibal Lara MD ??? guaiFENesin ER (MUCINEX) extended release tablet 600 mg, 600 mg, oral, BID, Tiana Spence NP, 600 mg at 05/15/21 0944 ??? haloperidol (HALDOL) injection 2 mg, 2 mg, intramuscular, Q8H PRN, Varsha Crowder NP ??? insulin glargine (LANTUS, SEMGLEE) 100 unit/mL injection 24 Units, 24 Units, subcutaneous, Nightly, Sixto Fish MD, 24 Units at 05/14/21 2218 ??? insulin lispro (HumaLOG, ADMELOG) 100 unit/mL injection 0-10 Units, 0-10 Units, subcutaneous, TID with meals, Anibal Lara MD, 2 Units at 05/15/21 1424 ??? insulin lispro (HumaLOG, ADMELOG) 100 unit/mL injection 0-5 Units, 0-5 Units, subcutaneous, Nightly, Anibal Lara MD, 1 Units at 05/13/212019 ??? insulin lispro (HumaLOG, ADMELOG) 100 unit/mL injection 10 Units, 10 Units, subcutaneous, TID with meals, Sixto Fish MD, 1 Units at 05/15/21 1424 ??? metoprolol tartrate (LOPRESSOR) immediate release tablet 12.5 mg, 12.5 mg, oral, BID, Eleonora Duarte NP ??? ondansetron (ZOFRAN) injection 4 mg, 4 mg, intravenous, Q6H PRN, Rhina Granados MD ??? pantoprazole DR (PROTONIX) extended release tablet 40 mg, 40 mg, oral, Daily, Rhina Granados MD, 40 mg at 05/15/21 0945 ??? piperacillin-tazobactam (ZOSYN) 3.375 g in sodium chloride 0.9% 100 mL IVPB, 3.375 g, intravenous, Q6H LEAH, Eleonora Duarte NP, Last Rate: 200 mL/hr at 05/15/21 1336, 3.375 g at 05/15/21 1336 ??? polyethylene glycol (MIRALAX) packet 17 g, 17 g, oral, BID, Rhina Granados MD, 17 g at 05/15/21 0949 ??? potassium chloride ER (KLOR-CON) extended release tablet 20 mEq, 20 mEq, oral, BID, Eleonora Duarte NP, 20 mEq at 05/15/21 0945 ??? QUEtiapine (SEROquel) tablet 25 mg, 25 mg, oral, Daily, Varsha Crowder NP, 25 mg at 05/15/21 0948 ??? QUEtiapine (SEROquel) tablet 50 mg, 50 mg, oral, Nightly, Varsha Crowder NP, 50 mg at 05/14/219 ??? sodium chloride 0.9% flush 0.5-20 mL, 0.5-20 mL, intra-catheter, Q8H [facility], Rhina Granados MD, 10 mL at 05/15/21 1412 Lab/Radiology/Diagnostic Review: Recent Results (from the past 24 hour(s)) POCT glucose Collection Time: 05/14/21 5:12 PM Result Value Ref Range Glucose, POC 219 (H) 70 - 199 mg/dL POCT glucose Collection Time: 05/14/21 10:07 PM Result Value Ref Range Glucose, POC 131 70 - 199 mg/dL POCT glucose Collection Time: 05/15/21 2:40 AM Result Value Ref Range Glucose, POC 102 70 - 199 mg/dL CBC without differential Collection Time: 05/15/21 5:32 AM Result Value Ref Range WBC 9.4 3.8 - 9.9 K/cumm Hgb 10.7 (L) 13.0 - 17.5 g/dL Hct 32.2 (L) 38.9 - 50.3 % Plt 270 150 - 400 K/cumm MPV 11.8 9.1 - 12.3 fL RBC 3.52 (L) 4.30 - 5.80 M/cumm MCV 91.5 81.3 - 96.4 fL MCH 30.4 27.1 - 33.3 pg MCHC 33.2 32.3 - 35.7 g/dL RDW CV 13.4 11.1 - 14.9 % RDW SD 45.4 35.7 - 48.1 fL NRBC abs 0.00 0.00 - 0.01 K/cumm Basic metabolic panel Collection Time: 05/15/21 5:33 AM Result Value Ref Range Sodium 131 (L) 135 - 145 mmol/L Potassium, pl 3.8 3.3 - 4.9 mmol/L Chloride 98 97 - 110 mmol/L CO2 21 (L) 22 - 32 mmol/L Anion gap 12 2 - 15 mmol/L BUN 22 8 - 25 mg/dL Creatinine 0.70 (L) 0.80 - 1.30 mg/dL Glucose 117 70 - 199 mg/dL Calcium 8.3 (L) 8.5 - 10.3 mg/dL Phosphorus Collection Time: 05/15/21 5:33 AM Result Value Ref Range Phosphorus, pl 3.0 2.3 - 4.5 mg/dL Magnesium Collection Time: 05/15/21 5:33 AM Result Value Ref Range Magnesium 1.7 1.4 - 2.5 mg/dL eGFR Collection Time: 05/15/21 5:33 AM Result Value Ref Range eGFR 103 mL/min/1.73 m2 POCT glucose Collection Time: 05/15/21 7:30 AM Result Value Ref Range Glucose, POC 127 70 - 199 mg/dL POCT glucose Collection Time: 05/15/21 12:06 PM Result Value Ref Range Glucose, POC 189 70 - 199 mg/dL XR Chest 1 View - Portable - in AM Result Date: 05/11/2021 Narrative: EXAMINATION: XR CHEST 1 VIEW HISTORY: The patient is a 60-year-old male who has had cardiac surgery. Comparison made with the previous study dated 05/10/2021. TECHNIQUE: AP portable view of the chest. FINDINGS: Lungs clear. Heart not enlarged. Aortic atherosclerosis. No failure. The right IJ [place] catheter has been retracted with its tip in the distal superior vena cava. Impression: IMPRESSION: No failure. Electronically signed by: Elvira Blackman M.D. XR Chest 1 View - Portable - in AM Result Date: 05/10/2021 Narrative: EXAMINATION: XR CHEST 1 VIEW DATE: 05/10/2021 2:40 AM COMPARISON: 05/09/2021 HISTORY: 60-year-old man cardiac surgery follow-up FINDINGS:Compared with study the previous day, significant improvement. There is cardiomegaly with postsurgical changes with continued and decreasing failure. Bibasilar atelectasis with left pleural fluid decreasing. No pneumothorax. [place] catheter remainsin place Impression: Decreasing failure, atelectasis and left effusion. Electronically signed by: Deandre Lomeli M.D. XR Chest 1 View - Portable - in AM Result Date: 05/09/2021 Narrative: EXAMINATION: XR CHEST 1 VIEW DATE: 05/09/2021 4:10 AM HISTORY: 60-year-old man cardiac surgery follow-up FINDINGS:Compared with study the previous day, significant improvement. There is cardiomegaly with postsurgical changes with continued but decreasing failure. Bibasilar atelectasis with left pleural fluid decreasing. No pneumothorax. [place] catheter remains in place Impression: Decreasing failure, atelectasis and left effusion. Electronically signed by: Deandre Lomeli M.D. XR Chest 1 View - Portable - in AM Result Date: 05/08/2021 Narrative: EXAMINATION: XR CHEST 1 VIEW DATE: 05/08/2021 4:15 AM HISTORY: 60-year-old man cardiac surgery follow-up FINDINGS:Compared with study the previous day, significant improvement. There is cardiomegaly with postsurgical changes with continued but decreasing failure. Bibasilar atelectasis with left pleural fluid. No pneumothorax. [place] catheter remains in place Impression: Decreasing failure. No pneumothorax. Electronically signed by: Deacon Cummings M.D. XR Chest 1 View - Portable - in AM Result Date: 05/07/2021 Narrative: EXAMINATION: XR CHEST 1 VIEW DATE: 05/07/2021 3:55 AM HISTORY: 60-year-old man follow-upcardiac surgery FINDINGS:Compared with study of the previous day, postsurgical changes in the heartand mediastinum with cardiomegaly are stable. [place] catheter remains in place. Left thoracostomy tube remains in place. No pneumothorax. Pulmonary vascular congestion with interstitial lung disease remain prominent. Impression: Persistent prominent interstitial lung disease with failure. Electronically signed by: Deacon Cummings M.D. XR Chest 1 View - Portable - in AM Result Date: 05/06/2021 Narrative: EXAMINATION: XR CHEST 1 VIEW DATE: 05/06/2021 4:05 AM INDICATION: Cardiac surgery. COMPARISON: 05/05/2021. FINDINGS: No pneumothorax or pleural effusion. Similar-appearing pulmonary vascular congestion and interstitial opacities most notable in the bilateral upper lobes consistent with pulmonary edema. Pulmonary catheter catheter, left thoracostomy tube, and mediastinal drain are appropriately position. Intra-aortic balloon pump is appropriately positioned. Interval removal of endotracheal tube. Impression: 1. Interval removal of endotracheal tube. Remaining tubes and lines are appropriately positioned. 2. Similar-appearing cardiomegaly, pulmonary vascular congestion, and prominent bilateralinterstitial markings suggestive of interstitial pulmonary edema. Electronically signed by: Richard Zhao II, D.O. XR Chest 1 View - Portable - in AM Result Date: 05/05/2021 Narrative: EXAMINATION: XR CHEST 1 VIEW DATE: 05/05/2021 4:15 AM HISTORY: 60-year-old man cardiac surgery follow-up FINDINGS:Compared with the study of the prior day, tubes and catheters remain satisfactorily positioned. Worsening pulmonary vascular congestive changes are seen. Cardiomegaly with postsurgical changes stable. No pneumothorax. Impression: Increasing failure. Electronically signed by: Deacon Cummings M.D. XR Chest 1 Vw Portable Result Date: 05/05/2021 Narrative: EXAMINATION: XR CHEST 1 VIEW DATE: 05/04/2021 8:40 PM HISTORY: 60-year-old man coronary artery bypass follow-up FINDINGS:Compared with the study of earlier the same day, postsurgical changes now evident within the heart and mediastinum with cardiomegaly. Interval placement of endotracheal tube, nasogastric tube, [place] catheter, left thoracostomy tube and mediastinal drain all in satisfactory position. No pneumothorax. Interstitial lung disease with mild pulmonary vascular congestive changes. Aortic balloon pump is no longer seen. Impression: Tube placements with postsurgical changes with cardiomegaly with interstitial lung disease and mild failure with no pneumothorax. Electronically signed by: Deacon Cummings M.D. XR Chest 1 Vw Portable Result Date: 05/04/2021 Narrative: EXAMINATION: XR CHEST 1 VIEW DATE: 05/04/2021 9:05 AM HISTORY: Coronary artery disease FINDINGS:Comparison is made with study of 2 days earlier. Cardiomegaly, COPD with interstitial lung disease stable. Mild failure. Aortic balloon pump stable in position at the proximal descending aorta. No pneumothorax. No new infiltrates. Impression: Stable appearance. COPD cardiomegaly, with mild failure suspected. Electronically signed by: Deacon Cummings M.D. XR Chest 1 Vw Portable Result Date: 05/02/2021 Narrative: EXAMINATION: XR CHEST 1 VIEW DATE: 05/02/2021 5:15 AM INDICATION: Intra-aortic balloon pump. COMPARISON: 05/01/2021. FINDINGS: Appropriately positioned intra-aortic balloon pump appears unchanged. No pneumothorax or pleural effusion. Mixed reticular and alveolar opacities demonstrated inall lung lobes appear most significant in the upper lobes and perihilar regions, unchanged. Impression: 1. Appropriately positioned intra-aortic balloon pump. 2. Similar mixed reticular and alveolar opacities most notable in the bilateral upper lobes and perihilar region. Electronically signed by: Richard Lopez II, D.O. XR Chest 1 Vw Portable Result Date: 05/02/2021 Narrative: EXAMINATION: XR CHEST 1 VIEW DATE: 05/01/2021 8:15 PM INDICATION: Hypoxia. COMPARISON: None. FINDINGS: No pneumothorax. No pleural effusion. Mixed reticular and alveolar opacities are demonstrated in all lung lobes but demonstrate an upper lobe and perihilar predominance. Findings may represent pulmonary edema on background of centrilobular emphysematous changes. Underlying infectious process not entirely excludable. Cardiac mediastinal silhouette is stable in appearance. No acute osseous abnormality. Impression: Mixed reticular and alveolar opacities are demonstrated in all lung lobes but demonstrate an upper lobe and perihilar predominance. Findings may represent pulmonary edema on background ofcentrilobular emphysematous changes. Electronically signed by: Richard Lopez II, D.O. Transthoracic Echo (TTE) Limited Result Date: 05/07/2021 Narrative: [place] [address] Limited Echocardiogram Report Patient Name: DEEPAK ALVARADO : 1960 StudyDate: 05/07/2021 12:16:52 PM Gender: M Tech: SR Location: [id number] Ref.Provider: RHINA GRANADOS Height(Cm): 175 BSA: 2.1 Weight(Kg): 91 Heart Rate: 82 BP: 127/44 Quality: Good Order Provider: Dr. Sutton Procedures: Echocardiographic Report: Limited transthoracic echocardiogram with 2D and M-Mode. Measurements: 2D/M Mode Measurement Value Normal Range LVIDd 2D 3.43 [ 4.20 -5.90 ] cm LVIDs 2D 2.59 [ 2.30 - 3.90 ] cm LVPWd 2D 1.01 [ 0.60 - 1.00 ] cm IVSd 2D 0.71 [ 0.60 - 0.90 ] cm Findings: Left Ventricle: Reduced left ventricular cavity size. Mild global left ventricular systolic dysfunction. Ejection fraction is measured at 42 %. These segments of the LV are hypokinetic: apical anterior segment. Pericardium: Trivial pericardial effusion. No echocardiographic evidence to suggest pericardial tamponade. Conclusions: Reduced left ventricular cavity size. Mild global left ventricular systolic dysfunction. Ejection fraction is measured at 42 %. These segments of the LV are hypokinetic: apical anterior segment. Trivial pericardial effusion. No echocardiographic evidence to suggest pericardial tamponade. Electronically Signed By: Gianni Francois MD, [facility] :54:09 STAFF FORESTER Transthoracic Echo Complete W Doppler/CF Result Date: 05/02/2021 Narrative: [place] [address] Echocardiogram Report Patient Name: DEEPAK ALVARADO W : 1960 Study Date: 05/02/2021 8:50:02 AM Gender: M Tech: Location: [place] [address] Ref Provider: NALINI CLAYTONHeight(Cm): 175 BSA: 2.11 Weight(Kg): 92 Heart Rate: 89 BP: 102/52 Quality: Good Order Provider: NALINI CLAYTON PROCEDURES: Echocardiographic Report: Transthoracic echocardiogram with complete 2D, M-Mode, and color Doppler examination. INDICATIONS: Free Text. Measurements: 2D/M Mode Doppler Measurement Value Normal Range Measurement Value Normal Range EF Teich 2D 30.0 [ 55.0 - 70.0 ] percent CHRISTINA Vmax 2.04 [ 2.00 - 4.00 ] cm2 EF Mod 4C 42.2 [ 55.0 - 70.0 ] percent AV Mean PG 5 [ 2 - 4 ]mmHg LVIDd 2D 4.54 [ 4.20 - 5.90 ] cm AV Peak Ramesh 1.54 [ 1.00 - 1.70 ] m/s LVIDs 2D 3.91 [ 2.30 - 3.90 ] cm AV VTI 26.93 cm LVPWd 2D 0.92 [ 0.60 - 1.00 ] cm LVOT Diam 2.20 [ 1.70 - 2.10 ] cm IVSd 2D0.76 [ 0.60 - 0.90 ] cm LVOT Peak Ramesh 0.83 [ 0.70 - 1.10 ] m/s LA Dimension MM 5.08 [ 3.00 - 4.00 ]cm LVOT VTI 13.82 [ 20.00 - 30.00 ] cm AoR Diam MM 4.12 [ 2.60 - 3.70 ] cm MV E Peak Ramesh 0.85 [ 0.60 - 1.30 ] m/s LA Volume Index 20.83 [ 16.00 - 28.00 ] cc/m2 MV A Peak Ramesh 1.14 [ 1.00 - 1.20 ] m/s ACS MM 1.91 [ 1.50 - 2.60 ] cm MV Mean PG 1 [ <= 5 ] mmHg MV PHT 43 [ 20 - 100 ] msec MVA 2.20 MV Decel Time 137 [ 104 - 258 ] msec PV Peak Ramesh 1.10 [ 0.40 - 0.80 ] m/s TR Peak Ramseh 1.32 [ 1.00 -2.80 ] m/s TR Peak PG 7 mmHg RVSP 16.93 [ 10.00 - 36.00 ] mmHg E' 0.06 E/E' 14.00 Measurement Value Normal Range Measurement Value Normal Range 2D/M Mode Doppler - FINDINGS: Atrial Septum: Normal atrial septum. Left Ventricle: Normal left ventricular size. Left ventricle not well visualized. There is severe hypokinesis of the mid anteroseptal, anterior, and apical mancilla. Normal left ventricular wall thickness. Impaired diastolic relaxation Grade I. Ejection fraction is visually estimated at 40 %. Left Atrium: The left atrium is normal in size. Right Ventricle: Normal right ventricular size. Normal right ventricular systolic function. Right Atrium: The right atrium is normal in size. Aortic Valve: Normal structure of the aortic valve. No evidence of hemodynamically significant aortic stenosis by Doppler. No aortic regurgitation. Mitral Valve: Normal structure of the mitral valve. Trivial regurgitation of the mitral valve. Pulmonic Valve: Pulmonic valve not well visualized. Trivial re gurgitation in the pulmonic valve. Tricuspid Valve: Normal structure of the tricuspid valve. Trivial regurgitation in the tricuspid valve. Pericardium: Normal pericardium with no significant pericardial effusion. Aorta: Normal aortic root. IVC: Normal size and normal respiratory collapse consistentwith normal right atrial pressure (<5 mmHg). CONCLUSIONS: Technically difficult study with limited views. Normal left ventricular size. Left ventricle not well visualized. There is severe hypokinesis of the mid anteroseptal, anterior, and apical mancilla. Normal left ventricular wall thickness. Impaired diastolic relaxation Grade I. Ejection fraction is visually estimated at 40 %. Normal right ventricular size. Normal right ventricular systolic function. Normal structure of the mitral valve. Trivial regurgitation of the mitral valve. Normal structure of the tricuspid valve. Trivial regurgitation in the tricuspid valve. Electronically Signed By: Rylee Brito DO, GRETCHEN, VILMA, FAISAL 2021-05-02 14:07:25 STAFF FORESTER CC: CC: CC: ASSESSMENT/PLAN Hyponatremia from SIADH and possibly from zaroxylyn use. Work up for hyponatremia ongoing. PO FR. DC Zaroxylyn. No normotonic fluids yet. Urine lytes and osm. If in clinical fluid overload, may use tolvaptan. Renal fn is normal. Na better with loop diuresis, will continue. ?? Recent bladder tumor removal with hematuria. ?? -??Urology is following.H/H stable -Cysto vs conservative tx. -Voiding trial. ?? Hypokalemia from diuresis. Replace PRN. ?? 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 ?? Syncopal episode -(+) orthostasis -receiving albumin -IV lasix was discontinued. ??There is a 1x order for zaroxolyn 10mg this am- recommend holding fornow. ??D/w RN ?? Coronary artery disease -s/p CABG post STEMI -??underwent four-vessel bypass ??MAE to the LAD, sequential saphenous vein graft to diagonal and obtuse marginal and a vein graft to the PDA. -s/p??low dose dobutamine -paced rhythm -??IV??diuretics??discontinued d/t syncopal episode today (see above) ?? Moderate LV dysfunction -s/p IV??lasix??and??low dose??dobutamine -Beta blockers, ??[place] once off dobutamine-would hold off adding given syncopal episode this am -repeat ECHO 05/07 EF 42% (see above) ?Nonsustained ventricular tachycardia -no recurrence of VT -K 3.7, Mg??2.0. ??Supplement to keep K >/= 4.0, Mg >/= 2.0 ?Diabetes mellitus -?on lantus and SSI ?? COPD: ?? -on?O2 NC??4L (dried blood to L nare humidified o2 ordered) ?? Dyslipidemia -?Continue atorvastatin. ?PAD -?Stable ? Anemia -Hb??11.4 (10.5)??(8.6) -monitor ?? I can be reached at [phone] with any concerns. Thank you Rhina Granados MD for the consult. Yves Weinberg MD [facility] [phone] F FORESTER * Ellen Shore PTA - 05/15/2021 4:10 PM CST Physical Therapy Unavailable, with OTR for OT session. Ellen Shore PTA 05/15/21 4:11 PM F FORESTER * Abril Lala, OT - 05/15/2021 3:43 PM CST Occupational Therapy NOTE / SESSION TYPE: Weekly Progress / Interim Patient Name: Deepak Alvarado Date of : 1960 Age / Sex: 60 y.o. / male Room: [place] [address] Admit Date: 05/01/2021 Date of Service: 05/15/21 Time In: 15:43 Time Out: 16:39 Primary Diagnosis: ST elevation myocardial infarction (STEMI) (HCC) Past Medical History: Diagnosis Date ??? Chronic obstructive pulmonary disease (CMS/HCC) (HCC) COPD ??? Coronary artery disease ??? Diabetes mellitus (HCC) ??? H/O heart artery stent 2007 ??? Hypertension Hypertension ??? ST elevation (STEMI) myocardial infarction (HCC) 05/01/2021 History reviewed. No pertinent surgical history. Precautions (Including Weight-Bearing): Fall risk, Bed / chair alarm and Sternal precautions Caregiver Present for Session (Yes or No): No SUBJECTIVE: Patient Comment: I think that I can do that (referring to LE dress) Pain Assessment: Pre-therapy pain level: 0 / 10 Pain location: No pain - Location N/A Pain intervention(s): No pain - Intervention N/A Post-therapy pain level: 0 / 10 Pain scale used: 0-10 SCALE OBJECTIVE: Appearance: Presentation upon OT arrival: Patient Supine with head of bed elevated Presentation upon OT departure: Patient Sitting in bedside recliner Bed / chair alarm in place and activated upon OT departure: Yes Call light within arms reach of patient at end of session: Yes Completed patient handoff and notified MANAGER RENTAL / RN, name: Charo, of patient's location and functional status upon completion of session Vital Signs: Heart rate at rest: 105 bpm SPO2 at rest: 91 % Heart rate with activity: 126 bpm SPO2 with activity: 92 % Oxygen LPM: 4.5 l nasal cannula Cognitive / Perceptual Assessment: COGNITIVE SCREENING: (Short Blessed Test) Answer Max Error Error Score Weight Sub-Score 1. What year is it now? 1 4 4 2. What month is it now? Repeat this phrase after me and remember it. Padilla Huddleston [address] [place] [address]. Number of trialto [id number] 1 3 0 3. About what time is it without looking at your watch (within 1 hour?) Response: 6:00 Actual Time: 4:34 1 3 3 4. Count backwards from 20 to 1. Dinesh correctly sequenced #'s [x]20 [x]19 [x]18 [x] 17 [x]16 [x]15 [x] 14 [x]13 [x]12 []11 [] 10 [x]9 [x]8 [x] 7 [x] 6 [x]5 [x]4 [x]3 [x]2 [x]1 2 (a) 2 2 5. Say the months of the year in reverse. [] D [] N []O [] S [] A []JL []JU []MY []A []M []F [] J 2 (a) 2 4 6. Repeat the name and address I asked you to remember. Padilla Huddleston [address] [facility]. [] [place]illa [] [place] [][place] [][facility] [][place] 5 (b) 2 10 A weighted error score of 9 or greater indicates a need for further assessment. Total Weighted Error Score = 23 (a) Scoring 0 = No errors, 1 = 1 error, 2 = 2 or more errors, (b) An answer of either [facility] or [facility] is acceptable. UE ROM / Strength / Coordination: (A)ROM - Right: WNL except shoulders tested to 90 degrees due to sternal prec. Strength - Right: 4/5 except shoulders not assessed (A)ROM - Left: : WNL except shoulders tested to 90 degrees due to sternal prec. Strength - Left: 4/5 except shoulders not assessed Hogshead Builder Strength (Right) Good Hogshead Builder Strength (Left): Good Right Serial Opposition: Intact Left Serial Opposition: Intact Balance: Static sitting balance: Good at EOB Dynamic sitting balance: Good unilaterally supported Static standing balance: Fair+ Dynamic standing balance: fair Mobility / Transfers: Bed mobility (Components & Assistance): supine to sit with mod assist Transfer(s): bed to chair with min assist stand pivot, lost balance toward left, chair to b/s commode with CGA stand pivot Activities of Daily Living / Living Skills: UE dressing: Patient completed upper body dressing of Hospital gown as robe while Sitting on EOB with overall Minimal assistance. Patient required assistance for pulling around back. Lower Body Dressing: Patient completed lower body dressing of Underwear while Sitting in bedside chair / recliner with overall not fully assessed due to patient to fatigued to stand to pull. Patient required assistance for threaded feet with spv and increased time. Footwear: Patient completed footwear of Footie(s) while Sitting in bedside chair / recliner with overall Supervision assistance. Patient required assistance for verbal cue(s) and increased time due to decreased activity tolerance Other: toileting hygiene with min assist for thoroughness for BM ASSESSMENT: Rehab Potential (Prognosis): good Problem List: Patient has impairments including: Decreased balance, Decreased mobility, Decreased endurance, Decreased cognition and Decreased ADL independence. Barriers to Discharge: Cognitive deficit and Decreased endurance PLAN: OT Discharge Recommendations this date: Location: long-term facility Supervision: 24 hour Follow-up therapy recommendations: Skilled OT in Shelter Facility Frequency of therapy: 3-5 times / week Intervention / Education needs: ADL training, Compensatory ADL strategies, Adaptive equipment education, Durable medical equipment education, Balance activities, Functional transfer training, Precautions education, Pursed lip breathing / Relaxation techniques, UE home exercise program education, Family training as appropriate and Cognitive re-orientation Education provided: Patient has been educated on ADL training, Functional transfer training and sternal precautions. Individual(s) needs ongoing reinforcement. Short Term Goals / Care Plan: Multi-Disciplinary Problems (from Occupational Therapy) Active Problems Problem[place] [facility] [place]: 05/07/21 Goal Start Date Expected End Date End Date [facility] 3 05/07/21 05/22/21 -- Goal Details: Patient will complete LE dressing with moderate assistance and using adaptive equipment PRN one time Goal Start Date Expected End Date End Date [facility] 5 05/07/21 05/22/21 -- Goal Details: Patient will complete chest mobilization exercises with moderate verbal cues one time Goal Start Date Expected End Date End Date [facility] 6 05/07/21 05/14/21 -- Goal Details: Patient will adhere to sternal precautions during ADLS with minimal verbal cues one time Goal Start Date Expected End Date End Date [facility] 7 05/15/21 05/22/21 -- Goal Details: Patient will complete UE dress with set up x1 Goal Start Date Expected End Date End Date [facility] 8 05/15/21 05/22/21 -- Goal Details: Patient will complete transfers to bed/toilet/chair with spv with ww x1 If this is the last note, consider this the discharge summary Abril Lala OT 05/15/21 F FORESTER * Anibal Lara MD - 05/15/2021 12:50 PM CST Hospitalist Progress Note Name: Deepak Alvarado Admission Date: 05/01/2021 Today's Date: 05/15/2021 Subjective: Pt seen and examined Clinical course: Overall pt condition has improved. Still on 4L per NC today Objective: Vitals: 05/14/21 1918 05/14/21232026/21 0338 05/15/21 0741 BP: 94/60 91/54 93/59 105/68 BP Location: Right arm Right arm Right arm Right arm Patient Position: Lying Lying Lying Lying Pulse: 78 83 87 93 Resp: 18 18 18 18 Temp: 36.4 ??C (97.6 ??F) 36.6 ??C (97.9 ??F) 36.6 ??C (97.8 ??F) 37 ??C (98.6 ??F) TempSrc: Oral Oral Oral Oral SpO2: 93% 94% 91% 90% Weight: Height: Wt Readings from Last 3 Encounters: 05/14/21 79 kg (174 lb 2.6 oz) 08/27/13 114.3 kg (252 lb) 10/19/12 111.6 kg (246 lb) I/O last 3 completed shifts: In: 1020 [P.O.:520; I.V.:500] Out: 1725 [Urine:1725] I/O this shift: In: 337 [P.O.:337] Out: - Scheduled Meds Current Facility-Administered Medications Medication Dose Route Frequency Provider Last Rate Last Admin ??? acetaminophen (TYLENOL) tablet 650 mg 650 mg oral Q6H PRN Eleonora Duarte NP 650 mg at 05/14/211 ? ? al & mag hydroxide lqktyuzbdqi-oxyojtyldtlwyng-cuokdzewa-nystatin (MAGIC MOUTHWASH) suspension 1-1-1-1 20 mL swish & spit Q4H PRN Tiana Spence NP 20 mL at 05/12/21 1457 ??? albuterol 2.5 mg /3 mL (0.083 %) nebulizer solution 2.5 mg 2.5 mg nebulization Q4H PRN (RT) Ralf Tomlinson MD ??? aspirin enteric coated tablet 81 mg 81 mg oral Daily Varsha Crowder NP 81 mg at 05/15/21 0945 ??? atorvastatin (LIPITOR) tablet 80 mg 80 mg oral Nightly Rhina Granados MD 80 mg at 05/14/212207 ??? dextrose oral liquid liquid 15 g 15 g oral Q15 Min PRN Anibal Lara MD Or ??? dextrose (D10W) 10% bolus 250 mL 250 mL intravenous Q15 Min PRN Anibal Mon MD ??? docusate sodium (COLACE) capsule 100 mg 100 mg oral BID Rhina Granados MD 100 mg at 05/15/21 0944 ??? enoxaparin (LOVENOX) syringe 40 mg 40 mg subcutaneous Daily-2100 Rhina Granados MD 40 mg at107/10/202140 ??? furosemide (LASIX) 10 mg/mL injection 40 mg 40 mg intravenous BID DIURETIC Laly Lopes MD ??? glucagon injection 1 mg 1 mg intramuscular Q30 Min PRN Anibal Lara MD ??? guaiFENesin ER (MUCINEX) extended release tablet 600 mg 600 mg oral BID Tiana Spence NP 600 mg at 05/15/21 0944 ??? haloperidol (HALDOL) injection 2 mg 2 mg intramuscular Q8H PRN Varsha Crowder NP ??? insulin glargine (LANTUS, SEMGLEE) 100 unit/mL injection 24 Units 24 Units subcutaneous NightlySixto Fish MD 24 Units at 05/14/218 ??? insulin lispro (HumaLOG, ADMELOG) 100 unit/mL injection 0-10 Units 0-10 Units subcutaneous TID with meals Anibal Lara MD 4 Units at 05/14/21 171 ??? insulin lispro (HumaLOG, ADMELOG) 100 unit/mL injection 0-5 Units 0-5 Units subcutaneous Nightly Anibal Lara MD 1 Units at 05/13/212019 ??? insulin lispro (HumaLOG, ADMELOG) 100 unit/mL injection 10 Units 10 Units subcutaneous TID withmeals Sixto Fish MD 10 Units at 05/14/21 171 ??? metoprolol tartrate (LOPRESSOR) immediate release tablet 12.5 mg 12.5 mg oral BID Eleonora Duarte NP ??? ondansetron (ZOFRAN) injection 4 mg 4 mg intravenous Q6H PRN Rhina Granados MD ??? pantoprazole DR (PROTONIX) extended release tablet 40 mg 40 mg oral Daily Rhina Granados MD40 mg at 05/15/21 0945 ??? piperacillin-tazobactam (ZOSYN) 3.375 g in sodium chloride 0.9% 100 mL IVPB 3.375 g [id number] [facility] Eleonora Duarte NP 200 mL/hr at 05/15/21 0654 3.375 g at 05/15/21 0654 ??? polyethylene glycol (MIRALAX) packet 17 g 17 g oral BID Rhina Granados MD 17 g at 05/15/21 0949 ??? potassium chloride ER (KLOR-CON) extended release tablet 20 mEq 20 mEq oral BID Eleonora Duarte NP 20 mEq at 05/15/21 0945 ??? QUEtiapine (SEROquel) tablet 25 mg 25 mg oral Daily Varsha Crowder NP 25 mg at 05/15/21 0948 ??? QUEtiapine (SEROquel) tablet 50 mg 50 mg oral Nightly Varsha Crowder NP 50 mg at ??? sodium chloride 0.9% flush 0.5-20 mL 0.5-20 mL intra-catheter Q8H [facility] Rhina Granados MD 10 mL at 05/15/2154 ??? acetaminophen ? ? al & mag hydroxide tgllawpeisr-emdqnreqwfujypi-mjbeqbqeu-nystatin ??? albuterol ??? dextrose OR dextrose ??? glucagon ??? haloperidol ??? ondansetron Physical Exam: General: alert, cooperative, no distress, appears stated age HEENT: Head:normacephalic, Eyes: Perrla, EOMI bilaterally, nasal and oral mucosal pink and moist Heart: normal rate, regular rhythm, normal S1, S2, no murmurs, rubs, clicks or gallops Lungs: clear to auscultation, no wheezes or rales and unlabored breathing Abdomen: soft, nontender, nondistended, no masses or organomegaly Extremities: peripheral pulses normal, no pedal edema, no clubbing or cyanosis Neuro: alert, oriented x 3, no defects noted in general exam. Lab Data Laboratory review: Chemistry CMP: Lab Results Component Value Date BUNSER 22 05/15/2021 CALCIUM 8.3 (L) 05/15/2021 CO2 21 (L) 05/15/2021 CHLORIDE 98 05/15/2021 CREATININE 0.70 (L) 05/15/2021 GLUCOSE 189 05/15/2021 GLUCOSE 117 05/15/2021 POTASSIUM 3.8 05/15/2021 SODIUM 131 (L) 05/15/2021 , CBC: Lab Results Component Value Date WBC 9.4 05/15/2021 RBC 3.52 (L) 05/15/2021 HGB 10.7 (L) 05/15/2021 HCT 32.2 (L) 05/15/2021 MCV 91.5 05/15/2021 MCH 30.4 05/15/2021 MCHC 33.2 05/15/2021 RDWCV 13.4 05/15/2021 RDWSD 45.4 05/15/2021 MPV 11.8 05/15/2021 NRBCABS 0.00 05/15/2021 , Coags: No results found for: PT, PTT, APTT, FFN, FIBRINOGEN, INR, ACTIVATEDCL, Lipids: No resultsfound for: CHOL, CHLPL, HDL, LDLCALC, TRIG, CHOLHDL, Cardiac Enzymes: No results found for: CKTOTAL, CKMB, CKMBINDEX, TROPONINT and POC Glucose: Lab Results Component Value Date GLUCOSE 189 05/15/2021 GLUCOSE 117 05/15/2021 Home Medications have been reviewed and updated on pt's list Assessment and Plan Near syncope/Syncope episode, probable vaso vagal, monitor ?? Acute anterior STEMI with CAD , s/p PCI to LAD -s/p CABG x 4 05/04 given re thrombosis of existing stents -s/p IABP, removed 05/06 - s/p Dobutamine gtt - ASA, ??statins, BBs , Plavix on hold due to hematuria ?? Post CABG cardiogenic shock - s/p fluid resuscitation , Levophed - off ??Dobutamine gtt ?? Ventricular fibrillation - briefly on 05/03 - treated with Amiodarone ; now off Dobutamine ?? Gross Hematuria ?- in a pt with hx of ??cystoscopy, -clot evacuation and transurethral resection of bladder tumor at [facility] -s/p 20??German three way catheter, urine still bloody -holding Plavix and Lovenox -cysto 05/14 with clot evacuation and fulguration ?? Acute resp failure - self ext 05/05/21 -Lung infiltrates - pulm vascular congestion versus pneumonia -off Lasix due to hyponatremia, changed to Zosyn due to worsening Leukocytosis -on 4L NC -pulmonology follows - tolerate cysto well ?? Type 2 diabetes.??- Lantus, ssi w accu, follow fs to adjust ?? Acute blood loss anemia ; -s/p PRBC transfusions in ICU - monitor HH ?? Mild hyponatremia, holding Lasix ?? Hx of ??Tobacco use. ?? Vitamin-D deficiency.- stable DVT prophylaxis :SCD Pt will need continued inpatient management for the above medical issues. Code status: full Anibal Hughes MD [facility] Hospitalist 05/15/2021 12:50 PM F FORESTER * Sixto Fish MD - 05/15/2021 12:43 PM CST Endocrine Diabetes Follow up Note Reason for Consult: Blood glucose management s/p CABG CC: DM Interval History: Pt oral intake variable Objective Vitals: Most Recent : Vitals: 05/14/21 1918 05/14/21 2321 05/15/21 0338 05/15/21 0741 BP: 94/60 91/54 93/59 105/68 BP Location: Right arm Right arm Right arm Right arm Patient Position: Lying Lying Lying Lying Pulse: 78 83 87 93 Resp: 18 18 18 18 Temp: 36.4 ??C (97.6 ??F) 36.6 ??C (97.9 ??F) 36.6 ??C (97.8 ??F) 37 ??C (98.6 ??F) TempSrc: Oral Oral Oral Oral SpO2: 93% 94% 91% 90% Weight: Height: Physical Exam: Physical Exam HENT: Head: Normocephalic and atraumatic. Eyes: Conjunctiva/sclera: Conjunctivae normal. Neck: Thyroid: No thyromegaly. Cardiovascular: Rate and Rhythm: Normal rate and regular rhythm. Heart sounds: Normal heart sounds. Pulmonary: Effort: Pulmonary effort is normal. Breath sounds: Normal breath sounds. Abdominal: General: Bowel sounds are normal. Palpations: Abdomen is soft. Tenderness: There is no abdominal tenderness. Musculoskeletal: Right lower leg: No edema. Left lower leg: No edema. Skin: General: Skin is warm and dry. Neurological: Mental Status: He is alert and oriented to person, place, and time. Psychiatric: Thought Content: Thought content normal. Judgment: Judgment normal. Lab/Radiology/Diagnostic Review: Reviewed. Recent Results (from the past 48 hour(s)) POCT glucose Collection Time: 05/13/21 5:24 PM Result Value Ref Range Glucose, POC 194 70 - 199 mg/dL POCT glucose Collection Time: 05/13/21 8:13 PM Result Value Ref Range Glucose, POC 174 70 - 199 mg/dL POCT glucose Collection Time: 05/14/21 6:43 AM Result Value Ref Range Glucose, POC 149 70 - 199 mg/dL POCT glucose Collection Time: 05/14/21 9:07 AM Result Value Ref Range Glucose, POC 143 70 - 199 mg/dL Basic metabolic panel Collection Time: 05/14/21 9:22 AM Result Value Ref Range Sodium 129 (L) 135 - 145 mmol/L Potassium, pl 4.0 3.3 - 4.9 mmol/L Chloride 97 97 - 110 mmol/L CO2 20 (L) 22 - 32 mmol/L Anion gap 12 2 - 15 mmol/L BUN 16 8 - 25 mg/dL Creatinine 0.59 (L) 0.80 - 1.30 mg/dL Glucose 148 70 - 199 mg/dL Calcium 8.4 (L) 8.5 - 10.3 mg/dL CBC without differential Collection Time: 05/14/21 9:22 AM Result Value Ref Range WBC 8.8 3.8 - 9.9 K/cumm Hgb 10.2 (L) 13.0 - 17.5 g/dL Hct 30.2 (L) 38.9 - 50.3 % Plt 271 150 - 400 K/cumm MPV 12.0 9.1 - 12.3 fL RBC 3.30 (L) 4.30 - 5.80 M/cumm MCV 91.5 81.3 - 96.4 fL MCH 30.9 27.1 - 33.3 pg MCHC 33.8 32.3 - 35.7 g/dL RDW CV 13.3 11.1 - 14.9 % RDW SD 44.8 35.7 - 48.1 fL NRBC abs 0.00 0.00 - 0.01 K/cumm Phosphorus Collection Time: 05/14/21 9:22 AM Result Value Ref Range Phosphorus, pl 2.6 2.3 - 4.5 mg/dL Magnesium Collection Time: 05/14/21 9:22 AM Result Value Ref Range Magnesium 1.8 1.4 - 2.5 mg/dL eGFR Collection Time: 05/14/21 9:22 AM Result Value Ref Range eGFR 111 mL/min/1.73 m2 POCT glucose Collection Time: 05/14/21 11:47 AM Result Value Ref Range Glucose, POC 150 70 - 199 mg/dL POCT glucose Collection Time: 05/14/21 1:13 PM Result Value Ref Range Glucose, POC 153 70 - 199 mg/dL POCT glucose Collection Time: 05/14/21 5:12 PM Result Value Ref Range Glucose, POC 219 (H) 70 - 199 mg/dL POCT glucose Collection Time: 05/14/21 10:07 PM Result Value Ref Range Glucose, POC 131 70 - 199 mg/dL POCT glucose Collection Time: 05/15/21 2:40 AM Result Value Ref Range Glucose, POC 102 70 - 199 mg/dL CBC without differential Collection Time: 05/15/21 5:32 AM Result Value Ref Range WBC 9.4 3.8 - 9.9 K/cumm Hgb 10.7 (L) 13.0 - 17.5 g/dL Hct 32.2 (L) 38.9 - 50.3 % Plt 270 150 - 400 K/cumm MPV 11.8 9.1 - 12.3 fL RBC 3.52 (L) 4.30 - 5.80 M/cumm MCV 91.5 81.3 - 96.4 fL MCH 30.4 27.1 - 33.3 pg MCHC 33.2 32.3 - 35.7 g/dL RDW CV 13.4 11.1 - 14.9 % RDW SD 45.4 35.7 - 48.1 fL NRBC abs 0.00 0.00 - 0.01 K/cumm Basic metabolic panel Collection Time: 05/15/21 5:33 AM Result Value Ref Range Sodium 131 (L) 135 - 145 mmol/L Potassium, pl 3.8 3.3 - 4.9 mmol/L Chloride 98 97 - 110 mmol/L CO2 21 (L) 22 - 32 mmol/L Anion gap 12 2 - 15 mmol/L BUN 22 8 - 25 mg/dL Creatinine 0.70 (L) 0.80 - 1.30 mg/dL Glucose 117 70 - 199 mg/dL Calcium 8.3 (L) 8.5 - 10.3 mg/dL Phosphorus Collection Time: 05/15/21 5:33 AM Result Value Ref Range Phosphorus, pl 3.0 2.3 - 4.5 mg/dL Magnesium Collection Time: 05/15/21 5:33 AM Result Value Ref Range Magnesium 1.7 1.4 - 2.5 mg/dL eGFR Collection Time: 05/15/21 5:33 AM Result Value Ref Range eGFR 103 mL/min/1.73 m2 POCT glucose Collection Time: 05/15/21 7:30 AM Result Value Ref Range Glucose, POC 127 70 - 199 mg/dL POCT glucose Collection Time: 05/15/21 12:06 PM Result Value Ref Range Glucose, POC 189 70 - 199 mg/dL Lab Results Component Value Date HGBA1C 13.5 (H) 05/03/2021 Assessment/Recommendations: 1. Uncontrolled type 2 diabetes mellitus complicated by hyperglycemia post CABG ?? Variable oral intake Blood sugars are decent Continue current insulin regimen Advised nurse to hold prandial Humalog insulin if oral intake is less than 25% If patient oral intake is between 25-75 % advised nurse to call me before giving full prandial dose Consider use of SGLT 2 inhibitors In future 2. STEMI : s/p stent, s/p cabg 3. HLD on statin therapy Will continue to follow Sixto Hurtado MD 05/15/2021 F FORESTER * Alejandro Pratt MD - 05/15/2021 10:52 AM CST Pulmonary Daily Progress Chief complaint/reason for consult: Respiratory failure. Interval History: Oxygen weaned back to 4 lpm Breathing comfortably; has occasional cough No fevers Had cysto yesterday: 500-600 mL clots evacuated from bladder, underwent fulguration of bleeding tumor resection site Presenting History: 60 yo man w COPD, DM, CAD/stents admitted 05/01/21 with chest pain. Had recent hematuria as well. Workup revealed an acute MT. Cath showed multi-vessel CAD. Had balloon pump placed. CABG x 4 done on 05/04/21. He was continued on mechanical ventilation and self extubated this AM (05/05/21). He is on multiple pressors. Sedated with precedex. Some tachypnea. A balloon pump is in place. Current tobacco use. COPD listed as prior diagnosis. No inhalers on home med list. Allergies: Allergies Allergen Reactions ??? Metoclopramide Medications: Scheduled Meds:aspirin, 81 mg, oral, Daily atorvastatin, 80 mg, oral, Nightly docusate sodium, 100 mg, oral, BID enoxaparin, 40 mg, subcutaneous, Daily-2100 furosemide, 40 mg, intravenous, BID DIURETIC guaiFENesin ER, 600 mg, oral, BID insulin glargine, 24 Units, subcutaneous, Nightly insulin lispro, 0-10 Units, subcutaneous, TID with meals insulin lispro, 0-5 Units, subcutaneous, Nightly insulin lispro, 10 Units, subcutaneous, TID with meals metoprolol tartrate, 12.5 mg, oral, BID pantoprazole DR, 40 mg, oral, Daily piperacillin-tazobactam, 3.375 g, intravenous, Q6H ELAH polyethylene glycol, 17 g, oral, BID potassium chloride ER, 20 mEq, oral, BID QUEtiapine, 25 mg, oral, Daily QUEtiapine, 50 mg, oral, Nightly sodium chloride 0.9%, 0.5-20 mL, intra-catheter, Q8H LEAH Continuous Infusions: PRN Meds:.??? acetaminophen ? ? al & mag hydroxide yjimbpazoyn-ooptlvavhzypthp-gyqejhszd-nystatin ??? albuterol ??? dextrose OR dextrose ??? glucagon ??? haloperidol ??? ondansetron ROS Above review of system reviewed on 05/15/2021 Vitals: Vitals: 05/14/21 1918 05/14/21 2321 05/15/21 0338 05/15/21 0741 BP: 94/60 91/54 93/59 105/68 BP Location: Right arm Right arm Right arm Right arm Patient Position: Lying Lying Lying Lying Pulse: 78 83 87 93 Resp: 18 18 18 18 Temp: 36.4 ??C (97.6 ??F) 36.6 ??C (97.9 ??F) 36.6 ??C (97.8 ??F) 37 ??C (98.6 ??F) TempSrc: Oral Oral Oral Oral SpO2: 93% 94% 91% 90% Weight: Height: Temp (24hrs), Av.7 ??C (98 ??F), Min:36.4 ??C (97.6 ??F), Max:37 ??C (98.6 ??F) Intake/Output Summary (Last 24 hours) at 05/15/2021 1052 Last data filed at 05/15/2021 0635 Gross per 24 hour Intake 1020 ml Output 575 ml Net 445 ml Physical Exam Constitutional: General: He is not in acute distress. Appearance: He is well-developed. HENT: Head: Normocephalic and atraumatic. Eyes: Conjunctiva/sclera: Conjunctivae normal. Neck: Thyroid: No thyromegaly. Cardiovascular: Rate and Rhythm: Normal rate and regular rhythm. Heart sounds: No murmur heard. Pulmonary: Effort: Pulmonary effort is normal. No respiratory distress. Breath sounds: Normal breath sounds. No stridor. No wheezing or rales. Chest: Comments: Sternotomy incision Abdominal: General: Bowel sounds are normal. Palpations: Abdomen is soft. Skin: General: Skin is warm and dry. Neurological: Mental Status: He is alert. Lab/Radiology/Diagnostic Review: Labs: Recent Labs Lab Units 05/15/21 0532 05/14/21 0922 05/13/21 0612 WBC K/cumm 9.4 8.8 9.8 HEMOGLOBIN g/dL 10.7* 10.2* 9.7* HEMATOCRIT % 32.2* 30.2* 29.8* PLATELETS K/cumm 270 271 253 Recent Labs Lab Units 05/15/21 0730 05/15/21 0533 05/15/21 0240 05/14/21 1147 05/14/21 0922 05/13/21 0816 05/13/21 0613 SODIUM mmol/L -- 131* -- -- 129* -- 127* POTASSIUM PLASMA mmol/L -- 3.8 -- -- 4.0 -- 3.5 CHLORIDE mmol/L -- 98 -- -- 97 -- 94* CO2 mmol/L -- 21* -- -- 20* -- 22 ANIONGAP mmol/L -- 12 -- -- 12 -- 11 GLUCOSE mg/dL -- 117 -- -- 148 < > 249* POC GLUCOSE MONITOR mg/dL 127 -- 102 < > -- < > -- BUN SERUM mg/dL -- 22 -- -- 16 -- 27* CREATININE mg/dL -- 0.70* -- -- 0.59* -- 0.76* CALCIUM mg/dL -- 8.3* -- -- 8.4* -- 8.1* < > = values in this interval not displayed. Imaging: CXR 05/12: L basilar atelectasis Chest x-ray 05/13 with left-sided infiltrate/layering effusion CXR 05/14: mild PVC Other diagnostic tests: I have personally reviewed above laboratory findings, chest imaging, and diagnostic tests 05/15/2021 Assessment and Plan: Acute respiratory failure Acute MT w CAD s/p CABG x 4 on 05/04/21, past hx multiple stents Cardiogenic shock Cardiomyopathy EF 40% V fib Hx COPD Anemia Infiltrates: edema v pna, tracheal aspirate w yeast Hematuria s/p cystoscopy/fulguration ?? Recs: Oxygen as required. Wean as tolerated Incentive spirometry abx coverage for pna Scheduled bronchodilators Chart reviewed F FORESTER * Monica Morales, RD - 05/15/2021 10:22 AM CST Nutrition Assessment Pt remains at risk for malnutrition due to inadequate intakes. Reason for Assessment: Follow Up Encounter Date: 05/15/21 10:22 AM Nutrition Assessment and Plan: Patient is a 60 y.o. male. Admit Dx: STEMI. Admitted on 05/01/2021, current LOS is 14 days. S/p CABG x4 on 05/04 and cystoscopy on 05/14. Pt was unavailable for interview on multiple attempts this morning- working w other providers. RN reported pt mentation improved and no longer agitated. Pt continues to have varied, inadequate intakes averaging 39% intakes of meals. Ensure High PRO remains ordered tid with no recorded intakes. Has lost 7.2kg through admission, likely combination of fluid status changes (-13.7L since admission) and true Wt loss. No N/V/D/C. GI WNL. Skin: + Sx incision to chest, R leg. Glucose 102-219 over the last 24hrs. Will continue heart healthy, 2000kcal consistent CHOdiet w Ensure High PRO tid. Continue to follow nutrition parameters and plans of care and offer verbal edu as appropriate. Current diet order: Adult Diet Restricted; Low Fat, Low Chol, Low Na, 2 GM Sodium; Consistent Carb 2000 maggie Pt intake is inadequate. PO intakes: 0% x 1; 25% x 5; 50% x 3; 75% x 2 Nutrition Diagnosis 1: Inadequate oral intake Related to: Loss of appetite,Recent surgery Evidencedby: PO under 50% Nutrition Diagnosis 2: Increased nutrient needs (protein)Related to: Recent surgeryEvidenced by: Physical finding ?? Interventions: Encouragement,Communication (continue heart healthy, 2000kcal consistent CHO dietw Ensure High PRO tid) ?? Monitoring and Evaluation: Appetite,Blood glucoses,Supplement tolerance,Discharge plans,Weight changes,Wound healing,Food preferences,I/O,Labs,Plan of care,PO intake ?? Goals: Adequate nutrition to meet estimated needs by next assessment,Oral intake to meet 75% estimated nutritional needs by next assessment,Tolerance of medical food supplement by next assessment Estimated needs: ?? MSJ Total Energy Needs: 1924.8 kcal using Activity Factor: 1.2 ?? Total Protein Estimated Needs (gm): 94.8 Protein Needs Based on g/k.2 Type of Weight Used for Estimated Protein : Current. ?? Estimated Fluid Needs ?? Type of Weight Used for Estimated Fluid Needs: Current ?? Fluid Needs Based on : 1 ml/kcal (1925mL/d) ?? Total Fluid Estimated Needs: 1925mL Objective Anthropometrics Weight: 79 kg (174 lb 2.6 oz) Admission Weight : 86.2 kg Weight Change: -0.83 kg (-1.83 lbs) IBW/kg (Calculated) : 72.6 kg Height: 175.3 cm (5' 9.02 ) Weight in (lb) to have BMI = 25: 169 BMI (Calculated): 25.7 BMI Classification: BMI 25.0 - 29.9 Overweight 3 Day I/O Summary 05/13 1900 - 05/15 0659 In: 1020 [P.O.:520; I.V.:500] Out: 1725 [Urine:1725] Temp: 37 ??C (98.6 ??F) Minute Ventilation (L/min): 12.7 L/min Past Medical History: Diagnosis Date ??? Chronic obstructive pulmonary disease (CMS/HCC) ([facility]) COPD ??? Coronary artery disease ??? Diabetes mellitus ([facility]) ??? H/O heart artery stent 2006 ??? Hypertension Hypertension ??? ST elevation (STEMI) myocardial infarction ([facility]) 05/01/2021 Medications and Lab Review: Scheduled Meds: aspirin, 81 mg, oral, Daily atorvastatin, 80 mg, oral, Nightly docusate sodium, 100 mg, oral, BID enoxaparin, 40 mg, subcutaneous, Daily-2100 furosemide, 40 mg, intravenous, BID DIURETIC guaiFENesin ER, 600 mg, oral, BID insulin glargine, 24 Units, subcutaneous, Nightly insulin lispro, 0-10 Units, subcutaneous, TID with meals insulin lispro, 0-5 Units, subcutaneous, Nightly insulin lispro, 10 Units, subcutaneous, TID with meals magnesium sulfate, 2 g, intravenous, Once metoprolol tartrate, 12.5 mg, oral, BID pantoprazole DR, 40 mg, oral, Daily piperacillin-tazobactam, 3.375 g, intravenous, Q6H LEAH polyethylene glycol, 17 g, oral, BID potassium chloride ER, 20 mEq, oral, BID QUEtiapine, 25 mg, oral, Daily QUEtiapine, 50 mg, oral, Nightly sodium chloride 0.9%, 0.5-20 mL, intra-catheter, Q8H LEAH Continuous Infusions: Sodium Date Value Ref Range Status 05/15/2021 131 (L) 135 - 145 mmol/L Final Potassium, pl Date Value Ref Range Status 05/15/2021 3.8 3.3 - 4.9 mmol/L Final BUN Date Value Ref Range Status 05/15/2021 22 8 - 25 mg/dL Final Creatinine Date Value Ref Range Status 05/15/2021 0.70 (L) 0.80 - 1.30 mg/dL Final Phosphorus, pl Date Value Ref Range Status 05/15/2021 3.0 2.3 - 4.5 mg/dL Final Magnesium Date Value Ref Range Status 05/15/2021 1.7 1.4 - 2.5 mg/dL Final Calcium Date Value Ref Range Status 05/15/2021 8.3 (L) 8.5 - 10.3 mg/dL Final Lab Results Component Value Date HGBA1C 13.5 (H) 05/03/2021 Lab Results Component Value Date GLUCOSE 127 05/15/2021 GLUCOSE 117 05/15/2021 GLUCOSE 102 05/15/2021 GLUCOSE 131 05/14/2021 GLUCOSE 219 (H) 05/14/2021 GLUCOSE 153 05/14/2021 GLUCOSE 148 05/14/2021 GLUCOSE 249 (H) 05/13/2021 Nursing Assessment: Last BM Date: 05/15/21 Bowel Sounds (All Quadrants): Active Emesis Assessment Emesis Color/Appearance: Brown Marko Scale Score: 20 Skin Integrity: Surgical incision Diet Instructions Recommend to eat a generally healthy diet that includes a variety of fruits, vegetables, whole-grain breads, low-fat dairy products, beans, lean meats, and fish. Avoid saturated and trans fats and limit sodium to less than 2,300 mg per day. Avoid foods like desserts, fast food, fried/breaded foods,deli meats, sausage, ruiz, and gravies/sauces. For a Consistent Carbohydrate Diet: Aim to consume 3 meals each day with 60-75 grams of carbohydrate at each one, avoid skipping meals. Avoid sugary drinks like lemonade, regular soda, gatorade, and sweet tea and drink water throughout the day.Monitor your blood sugar and take insulin and medication as directed by your doctor. Call [phone] to speak with a dietitian about any diet related concerns. Recommend to follow up with outpatient nutrition counseling, ask your doctor for a referral and call [phone] to make an appointment. Nutrition Follow-Up : 05/19/[address],LD F FORESTER * Robinson Paris MD - 05/15/2021 10:15 AM CST Urology Progress Note Mr. Alvarado is a 60 yo man who is POD 1 from cystoscopy and fulguration of bleeding sites. He is s/p arecent TURBT by another urologist at a hospital in [place] and his post op course was complicated by a myocardial infarction. He required anticoagulation tamika-operative a CABG, and he developed mild gross hematuria. CT urogram showed no problems in the upper tract. He had a catheter overnight, but this has been inadvertently pulled out. The urine had been clear but he has not voided since the catheter was dislodged. The nurse notes that the balloon was not inflated. He states that he was voiding fine prior to the TURBT but has had the catheter since that surgery. ROS All other systems except the HPI are negative. PE Older appearing, White man in NAD Chest clear and not labored Abd soft, no distention, LABS Lab Results Component Value Date COLORU Red (A) 05/04/2021 CLARITYU Cloudy (A) 05/04/2021 GLUCOSEUR 3+ (A) 05/04/2021 BILIRUBINUR Negative 05/04/2021 KETONESU Trace 05/04/2021 SPECGRAVU 1.015 05/04/2021 UROBILINOGEN <2.0 05/04/2021 Lab Results Component Value Date WBC 9.4 05/15/2021 HGB 10.7 (L) 05/15/2021 HCT 32.2 (L) 05/15/2021 MCV 91.5 05/15/2021 LABPLAT 270 05/15/2021 Lab Results Component Value Date GLUCOSE 127 05/15/2021 CALCIUM 8.3 (L) 05/15/2021 SODIUM 131 (L) 05/15/2021 POTASSIUM 3.8 05/15/2021 CO2 21 (L) 05/15/2021 CHLORIDE 98 05/15/2021 BUNSER 22 05/15/2021 CREATININE 0.70 (L) 05/15/2021 A/P Mr. Alvarado is doing fine after cystoscopy with clot evacuation and fulguration of bleeding sites. With clear urine, I recommend not replacing the catheter for a voiding trial. The Osorio itself can bother the site of recent TURBT and cause recurrent mild hematuria. The nurses understand to call if he fails the voiding trial by 3 pm. F FORESTER * Tiana Specne ESCROW CLERK - 05/15/2021 9:29 AM CST Daily Progress SUBJECTIVE: Mr. Alvarado is resting in bed, NAD Wet ESCROW CLERK cough, encouraged IS Mild incisional discomfort. Denies SOB, dizziness, palpitations OBJECTIVE: Vitals: 05/14/21 1918 05/14/21 2321 05/15/21 0338 05/15/21 0741 BP: 94/60 91/54 93/59 105/68 BP Location: Right arm Right arm Right arm Right arm Patient Position: Lying Lying Lying Lying Pulse: 78 83 87 93 Resp: 18 18 18 18 Temp: 36.4 ??C (97.6 ??F) 36.6 ??C (97.9 ??F) 36.6 ??C (97.8 ??F) 37 ??C (98.6 ??F) TempSrc: Oral Oral Oral Oral SpO2: 93% 94% 91% 90% Weight: Height: Intake/Output Summary (Last 24 hours) at 05/15/2021 0929 Last data filed at 05/15/2021 0635 Gross per 24 hour Intake 1020 ml Output 1175 ml Net -155 ml Scheduled Medications Medication Dose Route Frequency ??? aspirin enteric coated tablet 81 mg 81 mg oral Daily ??? atorvastatin (LIPITOR) tablet 80 mg 80 mg oral Nightly ??? docusate sodium (COLACE) capsule 100 mg 100 mg oral BID ??? enoxaparin (LOVENOX) syringe 40 mg 40 mg subcutaneous Daily-2100 ??? furosemide (LASIX) 10 mg/mL injection 40 mg 40 mg intravenous BID DIURETIC ??? guaiFENesin ER (MUCINEX) extended release tablet 600 mg 600 mg oral BID ??? insulin glargine (LANTUS, SEMGLEE) 100 unit/mL injection 24 Units 24 Units subcutaneous Nightly ??? insulin lispro (HumaLOG, ADMELOG) 100 unit/mL injection 0-10 Units 0-10 Units subcutaneous TID with meals ??? insulin lispro (HumaLOG, ADMELOG) 100 unit/mL injection 0-5 Units 0-5 Units subcutaneous Nightly ??? insulin lispro (HumaLOG, ADMELOG) 100 unit/mL injection 10 Units 10 Units subcutaneous TID withmeals ??? metoprolol tartrate (LOPRESSOR) immediate release tablet 12.5 mg 12.5 mg oral BID ??? pantoprazole DR (PROTONIX) extended release tablet 40 mg 40 mg oral Daily ??? piperacillin-tazobactam (ZOSYN) 3.375 g in sodium chloride 0.9% 100 mL IVPB 3.375 g [id number] LEAH ??? polyethylene glycol (MIRALAX) packet 17 g 17 g oral BID ??? potassium chloride ER (KLOR-CON) extended release tablet 20 mEq 20 mEq oral BID ??? QUEtiapine (SEROquel) tablet 25 mg 25 mg oral Daily ??? QUEtiapine (SEROquel) tablet 50 mg 50 mg oral Nightly ??? sodium chloride 0.9% flush 0.5-20 mL 0.5-20 mL intra-catheter Q8H LEAH LABS: Recent Labs Lab Units 05/15/21 0532 WBC K/cumm 9.4 HEMOGLOBIN g/dL 10.7* HEMATOCRIT % 32.2* PLATELETS K/cumm 270 Recent Labs Lab Units 05/15/21 0730 05/15/21 0533 05/15/21 0240 SODIUM mmol/L -- 131* -- POTASSIUM PLASMA mmol/L -- 3.8 -- CHLORIDE mmol/L -- 98 -- CO2 mmol/L -- 21* -- ANIONGAP mmol/L -- 12 -- GLUCOSE mg/dL -- 117 -- POC GLUCOSE MONITOR mg/dL 127 -- < > BUN SERUM mg/dL -- 22 -- CREATININE mg/dL -- 0.70* -- CALCIUM mg/dL -- 8.3* -- < > = values in this interval not displayed. No results found for: BNP No results found for: TROPONINI Exam General: in no apparent distress, well developed and well nourished and in no respiratory distress and acyanotic Neuro: Alert and oriented x 3, moves all extremities well HEENT: normocephalic, atraumatic, thyroid not enlarged. Neck: I do not appreciate JVD. Lungs: symmetric, unlabored, coarse to auscultation bilaterally Heart: S1,S2, regular rate & rhythm, no murmurs, rubs, or gallops Abdomen: soft, non-tender, non-distended, bowel sounds present Extremities: trace BLE edema, palpable peripheral pulses BL Skin: sternotomy and RLE donor sites stable CYSTOSCOPY: 05/14/21 OPERATIVE FINDINGS: Approximately 500-600 mL of clots in the bladder evacuated. Bleeding from the previous tumor resection site approximately 3-4 cm in diameter which was fulgurated and hemostasis obtained. Twenty-[address] Osorio catheter ASSESSMENT/PLAN: 1. CAD status post CABG for STEMI -Cardiac cath on 05/01 with 40% distal LM; 100% prox LAD; 90% prox Cx; 50% prox and distal RCA -Left ventriculogram:??Moderate blanka-apical hypokinesis; echo on 05/02 with EF ~40% -balloon angioplasty was performed during acute MT and subsequently patient underwent CABG x4 on 05/04/2021 - ischemic cardiomyopathy EF 42%?? - Metoprolol Xl 12.5 mg daily, -?ACEi/ARB when blood pressure is more stable - BP remains soft (80's-100's) ?? 2. Dyslipidemia: -stable on Atorvastatin 80mg qday ?? 3. Diabetes -stable on insulin per primary team ?? 4. COPD: -stable without any acute issues ?? 5. PAD: - stable ?? 6. Hematuria- -Plavix is currently on hold??urology following??- -S/P cystoscopy 05/14 Approximately 500-600 mL of clots in the bladder evacuated. Bleeding from the previous tumor resection site approximately 3-4 cm in diameter which was fulgurated and hemostasis obtained. -3 way osorio- pt pulled out this am, no reported trauma per RN. Condom cath was placed. Defer to urology ?? 7. Hypomagnesemia -Mg 1.7 supplement Mg to keep >/= 2.0 -K 3.8 supplement to keep K >/= 4.0 Tiana Spence NP [facility] 05/15/2021 9:29 AM F FORESTER * Laly Lopes MD - 05/15/2021 9:22 AM CST Cardiothoracic Surgery Progress Note [facility] Alvarado 1960 [facility] DAY#14 10 Days Post-Op s/p: Procedures: * Coronary artery bypass grafting x4, placement of left QUINN to the LAD, saphenous vein graft to thediagonal artery and obtuse marginal in a sequential fashion, saphenous vein graft to the PDA- [employer] Subjective: Cysto done yesterday with area of bleeding fulgurated and large bore osorio placed now with clear drainage. No acute events. Still on 5L O2. OBJECTIVE: Vitals: Temp: [36.4 ??C (97.6 ??F)-37 ??C (98.6 ??F)] 37 ??C (98.6 ??F) Pulse: [74-93] 93 BP: (80-105)/(50-68) 105/68 Resp: [11-33] 18 SpO2: [88 %-97 %] 90 % Wt Readings from Last 3 Encounters: 05/14/21 79 kg (174 lb 2.6 oz) 08/27/13 114.3 kg (252 lb) 10/19/12 111.6 kg (246 lb) I/O last 2 completed shifts: In: 1020 [P.O.:520; I.V.:500] Out: 1175 [Urine:1175] -1350 for 24, -05074 for stay Physical Exam HENT: Mouth/Throat: Mouth: Mucous membranes are moist. Eyes: Pupils: Pupils are equal, round, and reactive to light. Cardiovascular: Rate and Rhythm: Normal rate and regular rhythm. Pulses: Normal pulses. Heart sounds: Normal heart sounds. Comments: SR Pulmonary: Effort: Pulmonary effort is normal. Breath sounds: Normal breath sounds. Genitourinary: Comments: Osoroi- dark blood tinged urine Musculoskeletal: General: Normal range of motion. Right lower leg: No edema. Left lower leg: No edema. Skin: Comments: Sternum covered with silver Saph sites steristipped ZULEIKA Neurological: General: No focal deficit present. Mental Status: He is alert and oriented to person, place, and time. Psychiatric: Behavior: Behavior normal. Access: central line Recent Labs Lab Units 05/15/21 0532 05/14/21 0922 05/13/21 0612 WBC K/cumm 9.4 8.8 9.8 HEMOGLOBIN g/dL 10.7* 10.2* 9.7* HEMATOCRIT % 32.2* 30.2* 29.8* PLATELETS K/cumm 270 271 253 Recent Labs Lab Units 05/15/21 0533 05/14/21 0922 05/13/21 0613 SODIUM mmol/L 131* 129* 127* POTASSIUM PLASMA mmol/L 3.8 4.0 3.5 CHLORIDE mmol/L 98 97 94* CO2 mmol/L 21* 20* 22 BUN SERUM mg/dL 22 16 27* CREATININE mg/dL 0.70* 0.59* 0.76* CALCIUM mg/dL 8.3* 8.4* 8.1* Recent Labs Lab Units 05/12/21 1226 PROTIME (PT) sec 14.0* INR 1.3* APTT sec 29 Imaging: Today's CXR left atelectasis Assessment and Plan: 60 y.o. male 10 Days Post-Op s/p Coronary artery bypass grafting x4, placement of left QUINN to the LAD, saphenous vein graft to the diagonal artery and obtuse marginal in a sequential fashion, saphenous vein graft to the PDA 05/04/[address] Granados Neuro: Ax0x4, Continue Seroquel as scheduled. CVS: NSR 90's. BP soft, Metoprolol changed to XL per cards- will change back to tartrate as patients pressures were better controlled. Continue ASA, hold Plavix for hematuria Pulm: On 5L NC, stable. No obvious infiltrate on CXR. Needs aggressive pulm toilet. On empiric Zosyn, WBCs normal. Wean O2 GI: Heart Healthy DM2 Diet-- +flatus -BM Renal: Lasix 40 BID today ID: Continue Zosyn for total 7 days , WBC down trending D/L/T: D/c wires, keep central line : Osorio remains in place per . FU recs Prophylaxis: SCDs, Lovenox Endo. BS elevated, endocrine for management Dispo: Working on HH as patient is refusing placement at this time. Needs aggressive therapy, home O2 eval prior to returning home. Laly Lopes MD Cardiothoracic Surgery [facility] Cosigned by Moreno Whiting MD at 05/17/2021 10:43 AM STAFF FORESTER F FORESTER F FORESTER * Mirella Godwin MD - 05/14/2021 2:37 PM CST Admit Date: 05/01/2021 5:20 PM Hospital Day: 14 Clinical course: Overall pt condition has improved. Pt will be transferred to 9th floor, had Osorio with blood urine and still on Dobutamine gtt ?? 05/09: pt is on RA, still on Dobutamine gtt today 05/10: off Dobutamine gtt, new events noted ( had a near syncope/syncope episode at 2 am while trying to go the bathroom) 05/11: worsening hematuria noted, on 5L per NC 05/12: little confused this am, no RA 05/13: pt had removed he atrial and ventricular pacing wires, to have CT A/P 05/14, had cysto today Subjective: Denies sob, No n/v Pain under control Scheduled Meds [AUG Hold] aspirin, 81 mg, oral, Daily [AUG Hold] atorvastatin, 80 mg, oral, Nightly [Held by Provider] clopidogreL, 75 mg, oral, Daily [AUG Hold] docusate sodium, 100 mg, oral, BID [Held by Provider] enoxaparin, 40 mg, subcutaneous, Daily-2100 [AUG Hold] furosemide, 20 mg, intravenous, BID DIURETIC [AUG Hold] guaiFENesin ER, 600 mg, oral, BID [AUG Hold] insulin glargine, 24 Units, subcutaneous, Nightly [AUG Hold] insulin lispro, 0-10 Units, subcutaneous, TID with meals [MAR Hold] insulin lispro, 0-5 Units, subcutaneous, Nightly [Aug] insulin lispro, 10 Units, subcutaneous, TID with meals [Aug] metoprolol tartrate, 12.5 mg, oral, BID [Aug] pantoprazole DR, 40 mg, oral, Daily [Aug] piperacillin-tazobactam, 3.375 g, intravenous, Q6H LEAH [Aug] polyethylene glycol, 17 g, oral, BID [Aug] potassium chloride ER, 20 mEq, oral, BID [Aug] QUEtiapine, 25 mg, oral, Daily [Aug] QUEtiapine, 50 mg, oral, Nightly [Aug] sodium chloride 0.9%, 0.5-20 mL, intra-catheter, Q8H LEAH ??? [Aug] acetaminophen ? ? [Aug] al & mag hydroxide bsbqexfmrfs-arkvrkuuntoqeuf-jzakugilw-nystatin ??? [Aug] albuterol ??? [Aug] dextrose OR [Aug] dextrose ??? diphenhydrAMINE ??? fentaNYL ??? [Aug] glucagon ??? [Aug] haloperidol ??? meperidine ??? naloxone ??? [Aug] ondansetron ??? ondansetron Data Vitals: 05/14/21 1340 05/14/21 1345 05/14/21 1350 05/14/21 1355 BP: (!) 81/50 (!) 80/57 BP Location: Patient Position: Pulse: 82 84 81 84 Resp: 26 11 15 24 Temp: TempSrc: SpO2: (!) 89% (!) 88% (!) 88% 90% Weight: Height: @WTMULTIPLE@ Intake/Output Summary (Last 24 hours) at 05/14/2021 1437 Last data filed at 05/14/2021 1304 Gross per 24 hour Intake 500 ml Output 2000 ml Net -1500 ml Exam Gen: no distress HEENT: NCAT, EOMI, No scleral icterus Chest: CTAB, occasional wheezes Cv: RRR, no M/R/G Abd: soft, no tender, (+)bs Ext: No clubbing, cyanosis, or edema Skin: no rashes, bruises, or jaundice Neuro: no focal neurological deficits, gait not tested Lab Data Reviewed. Recent Labs Lab Units 05/14/21 0922 05/13/21 0612 05/12/21 0638 WBC K/cumm 8.8 9.8 13.8* HEMOGLOBIN g/dL 10.2* 9.7* 10.7* HEMATOCRIT % 30.2* 29.8* 32.7* PLATELETS K/cumm 271 253 304 Recent Labs Lab Units 05/14/21 1313 05/14/21 1147 05/14/21 0922 05/13/21 0816 05/13/21 0613 05/12/21 0709 05/12/21 0638 SODIUM mmol/L -- -- 129* -- 127* -- 130* POTASSIUM PLASMA mmol/L -- -- 4.0 -- 3.5 -- 3.5 CHLORIDE mmol/L -- -- 97 -- 94* -- 94* CO2 mmol/L -- -- 20* -- 22 -- 22 ANIONGAP mmol/L -- -- 12 -- 11 -- 14 GLUCOSE mg/dL -- -- 148 < > 249* < > 163 POC GLUCOSE MONITOR mg/dL 153 150 -- < > -- < > -- BUN SERUM mg/dL -- -- 16 -- 27* -- 26* CREATININE mg/dL -- -- 0.59* -- 0.76* -- 0.78* CALCIUM mg/dL -- -- 8.4* -- 8.1* -- 8.6 < > = values in this interval not displayed. Recent Labs Lab Units 05/12/21 1226 INR 1.3* Other Data Assessment and Plan Near syncope/Syncope episode, probable vaso vagal, monitor ?? Acute anterior STEMI with CAD , s/p PCI to LAD -s/p CABG x 4 05/04 given re thrombosis of existing stents -s/p IABP, removed 05/06 - s/p Dobutamine gtt - ASA, statins, BBs , Plavix on hold due to hematuria ?? Post CABG cardiogenic shock - s/p fluid resuscitation , Levophed - off Dobutamine gtt ?? Ventricular fibrillation - briefly on 05/03 - treated with Amiodarone ; now off Dobutamine ?? Gross Hematuria ?- in a pt with hx of ??cystoscopy, -clot evacuation and transurethral resection of bladder tumor at [facility] -s/p 20??German three way catheter, urine still bloody -holding Plavix and Lovenox -cysto 05/14 with clot evacuation and fulguration ?? Acute resp failure - self ext 05/05/21 -Lung infiltrates - pulm vascular congestion versus pneumonia -off Lasix due to hyponatremia, changed to Zosyn due to worsening Leukocytosis -on 6L NC -pulmonology follows - tolerate cysto well Type 2 diabetes.??- Lantus, ssi w accu, follow fs to adjust ?? Acute blood loss anemia ; -s/p PRBC transfusions in ICU - monitor HH ?? Mild hyponatremia, holding Lasix ?? Hx of ??Tobacco use. ?? Vitamin-D deficiency.- stable DVT Prophylaxis: scd Disposition Plan: pending recover Code status: full Discussed diagnosis and plan with pt at bedside and questions answered. Pt understand and agree plan Mirella Godwin MD 05/14/2021 2:37 PM F FORESTER * Eleonora Duarte NP - 05/14/2021 10:41 AM CST Cardiothoracic Surgery Progress Note [facility] Alvarado 1960 [facility] DAY#13 10 Days Post-Op s/p: Procedures: * Coronary artery bypass grafting x4, placement of left QUINN to the LAD, saphenous vein graft to thediagonal artery and obtuse marginal in a sequential fashion, saphenous vein graft to the PDA- [facility] Subjective: Patient resting in bed on 4L NC. Productive junky cough with clear sputum. Alert and oriented. Has pain at osorio site, denies chest pain or SOB. Patient is very aggravated at urology as the plan for his osorio/procedure changes daily and he states they do not talk to me. OBJECTIVE: Vitals: Temp: [36.2 ??C (97.1 ??F)-37 ??C (98.6 ??F)] 37 ??C (98.6 ??F) Pulse: [85-113] 87 BP: (95-117)/(56-65) 117/60 Resp: [18-20] 18 SpO2: [64 %-99 %] 90 % Wt Readings from Last 3 Encounters: 05/14/21 79 kg (174 lb 2.6 oz) 08/27/13 114.3 kg (252 lb) 10/19/12 111.6 kg (246 lb) I/O last 2 completed shifts: In: - Out: 1350 [Urine:1350] -1350 for 24, -51792 for stay Physical Exam HENT: Mouth/Throat: Mouth: Mucous membranes are moist. Eyes: Pupils: Pupils are equal, round, and reactive to light. Cardiovascular: Rate and Rhythm: Normal rate and regular rhythm. Pulses: Normal pulses. Heart sounds: Normal heart sounds. Comments: SR Pulmonary: Effort: Pulmonary effort is normal. Breath sounds: Normal breath sounds. Genitourinary: Comments: Osorio- dark blood tinged urine Musculoskeletal: General: Normal range of motion. Right lower leg: No edema. Left lower leg: No edema. Skin: Comments: Sternum covered with silver Saph sites steristipped ZULEIKA Neurological: General: No focal deficit present. Mental Status: He is alert and oriented to person, place, and time. Psychiatric: Behavior: Behavior normal. Access: central line Recent Labs Lab Units 05/14/21 0922 05/13/21 0612 05/12/21 0638 WBC K/cumm 8.8 9.8 13.8* HEMOGLOBIN g/dL 10.2* 9.7* 10.7* HEMATOCRIT % 30.2* 29.8* 32.7* PLATELETS K/cumm 271 253 304 Recent Labs Lab Units 05/13/21 0613 05/12/21 0638 05/11/21 0611 SODIUM mmol/L 127* 130* 132* POTASSIUM PLASMA mmol/L 3.5 3.5 3.5 CHLORIDE mmol/L 94* 94* 95* CO2 mmol/L 22 23 BUN SERUM mg/dL 27* 26* 24 CREATININE mg/dL 0.76* 0.78* 0.89 CALCIUM mg/dL 8.1* 8.6 8.8 Recent Labs Lab Units 05/12/21 1226 PROTIME (PT) sec 14.0* INR 1.3* APTT sec 29 Imaging: Today's CXR left atelectasis Assessment and Plan: 60 y.o. male 10 Days Post-Op s/p Coronary artery bypass grafting x4, placement of left QUINN to the LAD, saphenous vein graft to the diagonal artery and obtuse marginal in a sequential fashion, saphenous vein graft to the PDA 05/04/[address] Granados Neuro: Ax0x4, Continue Seroquel as scheduled. CVS: NSR 90's. BP soft, Metoprolol changed to XL per cards- will change back to tartrate as patients pressures were better controlled. Continue ASA, hold Plavix for hematuria Pulm: On 4L NC, stable. No obvious infiltrate on CXR. Needs aggressive pulm toilet. On empiric Zosyn, WBCs normal. Will need home O2 eval prior to discharge GI: Heart Healthy DM2 Diet-- +flatus -BM Renal: Holding diuresis- may need to restart. BUN/Scr stable. ID: Continue Zosyn, WBC down trending D/L/T: D/c wires, keep central line : Osorio remains in place per . Cysto today Spoke with Jordan myself today as plan keeps changing. Prophylaxis: SCDs, hold Lovenox for hematuria Endo. BS elevated, endocrine for management Dispo: Working on HH as patient is refusing placement at this time. Needs aggressive therapy, home O2 eval prior to returning home. *Awaiting BMP Eleonora Duarte NP Cardiothoracic Surgery [facility] F FORESTER F FORESTER * Alejandro Pratt MD - 05/14/2021 10:38 AM CST Pulmonary Daily Progress Chief complaint/reason for consult: Respiratory failure. Interval History: Pt with increased oxygen requirements Was on 4 lpm yesterday, requiring 6 lpm today Breathing comfortably; has occasional cough No fevers Problems with hematuria Cysto planned for today Presenting History: 60 yo man w COPD, DM, CAD/stents admitted 05/01/21 with chest pain. Had recent hematuria as well. Workup revealed an acute MT. Cath showed multi-vessel CAD. Had balloon pump placed. CABG x 4 done on 05/04/21. He was continued on mechanical ventilation and self extubated this AM (05/05/21). He is on multiple pressors. Sedated with precedex. Some tachypnea. A balloon pump is in place. Current tobacco use. COPD listed as prior diagnosis. No inhalers on home med list. Allergies: Allergies Allergen Reactions ??? Metoclopramide Medications: Scheduled Meds:aspirin, 81 mg, oral, Daily atorvastatin, 80 mg, oral, Nightly [Held by Provider] clopidogreL, 75 mg, oral, Daily docusate sodium, 100 mg, oral, BID [Held by Provider] enoxaparin, 40 mg, subcutaneous, Daily-2100 furosemide, 20 mg, intravenous, BID DIURETIC guaiFENesin ER, 600 mg, oral, BID insulin glargine, 24 Units, subcutaneous, Nightly insulin lispro, 0-10 Units, subcutaneous, TID with meals insulin lispro, 0-5 Units, subcutaneous, Nightly insulin lispro, 10 Units, subcutaneous, TID with meals metoprolol XL, 12.5 mg, oral, Daily pantoprazole DR, 40 mg, oral, Daily piperacillin-tazobactam, 3.375 g, intravenous, Q6H LEAH polyethylene glycol, 17 g, oral, BID potassium chloride ER, 20 mEq, oral, BID QUEtiapine, 25 mg, oral, Daily QUEtiapine, 50 mg, oral, Nightly sodium chloride 0.9%, 0.5-20 mL, intra-catheter, Q8H LEAH Continuous Infusions: PRN Meds:.??? acetaminophen ? ? al & mag hydroxide tghanauqjeg-hjxbjijqxfojizs-tbwblpope-nystatin ??? albuterol ??? dextrose OR dextrose ??? glucagon ??? haloperidol ??? ondansetron ROS Above review of system reviewed on 05/14/2021 Vitals: Vitals: 05/14/21 0005 05/14/21 0421 05/14/21 0600 05/14/21 0803 BP: 98/56 99/63 117/60 BP Location: Right arm Right arm Right arm Patient Position: Lying Lying Lying Pulse: 85 87 87 Resp: 18 18 18 Temp: 36.8 ??C (98.2 ??F) 36.4 ??C (97.6 ??F) 37 ??C (98.6 ??F) TempSrc: Oral Oral Oral SpO2: 90% 90% 90% Weight: 79 kg (174 lb 2.6 oz) Height: Temp (24hrs), Av.6 ??C (97.9 ??F), Min:36.2 ??C (97.1 ??F), Max:37 ??C (98.6 ??F) Intake/Output Summary (Last 24 hours) at 05/14/2021 1038 Last data filed at 05/14/2021 0605 Gross per 24 hour Intake -- Output 1350 ml Net -1350 ml Physical Exam Constitutional: General: He is not in acute distress. Appearance: He is well-developed. HENT: Head: Normocephalic and atraumatic. Eyes: Conjunctiva/sclera: Conjunctivae normal. Neck: Thyroid: No thyromegaly. Cardiovascular: Rate and Rhythm: Normal rate and regular rhythm. Heart sounds: No murmur heard. Pulmonary: Effort: Pulmonary effort is normal. No respiratory distress. Breath sounds: Normal breath sounds. No stridor. No wheezing or rales. Chest: Comments: Sternotomy incision Abdominal: General: Bowel sounds are normal. Palpations: Abdomen is soft. Skin: General: Skin is warm and dry. Neurological: Mental Status: He is alert. Lab/Radiology/Diagnostic Review: Labs: Recent Labs Lab Units 05/14/21 0922 05/13/21 0612 05/12/21 0638 WBC K/cumm 8.8 9.8 13.8* HEMOGLOBIN g/dL 10.2* 9.7* 10.7* HEMATOCRIT % 30.2* 29.8* 32.7* PLATELETS K/cumm 271 253 304 Recent Labs Lab Units 05/14/21 0907 05/14/21 0643 05/13/21201205/13/21 0816 05/13/21 0613 05/12/21 0709 05/12/21 0638 05/11/21 0859 05/11/21 0611 SODIUM mmol/L -- -- -- -- 127* -- 130* -- 132* POTASSIUM PLASMA mmol/L -- -- -- -- 3.5 -- 3.5 -- 3.5 CHLORIDE mmol/L -- -- -- -- 94* -- 94* -- 95* CO2 mmol/L -- -- -- -- 22 -- 22 -- 23 ANIONGAP mmol/L -- -- -- -- 11 -- 14 -- 14 GLUCOSE mg/dL -- -- -- -- 249* < > 163 < > 155 POC GLUCOSE MONITOR mg/dL 143 149 174 < > -- < > -- < > -- BUN SERUM mg/dL -- -- -- -- 27* -- 26* -- 24 CREATININE mg/dL -- -- -- -- 0.76* -- 0.78* -- 0.89 CALCIUM mg/dL -- -- -- -- 8.1* -- 8.6 -- 8.8 < > = values in this interval not displayed. Imaging: CXR 05/12: L basilar atelectasis Chest x-ray 05/13 with left-sided infiltrate/layering effusion CXR 05/14: mild PVC Other diagnostic tests: I have personally reviewed above laboratory findings, chest imaging, and diagnostic tests 05/14/2021 Assessment and Plan: Acute respiratory failure Acute MT w CAD s/p CABG x 4 on 05/04/21, past hx multiple stents Cardiogenic shock Cardiomyopathy EF 40% V fib Hx COPD Anemia Infiltrates: edema v pna, tracheal aspirate w yeast hematuria ?? Recs: Oxygen as required. Wean as tolerated Incentive spirometry abx coverage for pna Scheduled bronchodilators Chart reviewed F FORESTER * Braulio Ortega MD - 05/14/2021 9:53 AM CST Urology Progress Note 1 Day Post-Op Subjective: Patient having problems with the catheter. Mild hematuria. Objective: HB 10 Vitals: Vitals: 05/14/21 0005 05/14/21 0421 05/14/21 0600 05/14/21 0803 BP: 98/56 99/63 117/60 BP Location: Right arm Right arm Right arm Patient Position: Lying Lying Lying Pulse: 85 87 87 Resp: 18 18 18 Temp: 36.8 ??C (98.2 ??F) 36.4 ??C (97.6 ??F) 37 ??C (98.6 ??F) TempSrc: Oral Oral Oral SpO2: 90% 90% 90% Weight: 79 kg (174 lb 2.6 oz) Height: I/O last 2 completed shifts: In: - Out: 1350 [Urine:1350] Physical exam: Physical Exam Lab/Radiology/Diagnostic Review: Reviewed. Recent Results (from the past 24 hour(s)) POCT glucose Collection Time: 05/13/21 5:24 PM Result Value Ref Range Glucose, POC 194 70 - 199 mg/dL POCT glucose Collection Time: 05/13/21 8:13 PM Result Value Ref Range Glucose, POC 174 70 - 199 mg/dL POCT glucose Collection Time: 05/14/21 6:43 AM Result Value Ref Range Glucose, POC 149 70 - 199 mg/dL POCT glucose Collection Time: 05/14/21 9:07 AM Result Value Ref Range Glucose, POC 143 70 - 199 mg/dL CBC without differential Collection Time: 05/14/21 9:22 AM Result Value Ref Range WBC 8.8 3.8 - 9.9 K/cumm Hgb 10.2 (L) 13.0 - 17.5 g/dL Hct 30.2 (L) 38.9 - 50.3 % Plt 271 150 - 400 K/cumm MPV 12.0 9.1 - 12.3 fL RBC 3.30 (L) 4.30 - 5.80 M/cumm MCV 91.5 81.3 - 96.4 fL MCH 30.9 27.1 - 33.3 pg MCHC 33.8 32.3 - 35.7 g/dL RDW CV 13.3 11.1 - 14.9 % RDW SD 44.8 35.7 - 48.1 fL NRBC abs 0.00 0.00 - 0.01 K/cumm Current Facility-Administered Medications Medication Dose Route Frequency Provider Last Rate Last Admin ??? acetaminophen (TYLENOL) tablet 650 mg 650 mg oral Q6H PRN Eleonora Duarte NP 650 mg at 05/14/21 0940 ? ? al & mag hydroxide rcnlrqktbak-pnbbviywczncroo-tiuyokvyf-nystatin (MAGIC MOUTHWASH) suspension 1-1-1-1 20 mL swish & spit Q4H PRN Tiana Spence NP 20 mL at 05/12/21 1457 ??? albuterol 2.5 mg /3 mL (0.083 %) nebulizer solution 2.5 mg 2.5 mg nebulization Q4H PRN (RT) Ralf Tomlinson MD ??? aspirin enteric coated tablet 81 mg 81 mg oral Daily Varsha Crowder NP 81 mg at 05/14/21 09 ??? atorvastatin (LIPITOR) tablet 80 mg 80 mg oral Nightly Rhina Granados MD 80 mg at 05/13/212013 ??? [Held by Provider] clopidogreL (PLAVIX) tablet 75 mg 75 mg oral Daily Rhina Granados MD 75 mg at 05/10/21 0854 ??? dextrose oral liquid liquid 15 g 15 g oral Q15 Min PRN Anibal Lara MD Or ??? dextrose (D10W) 10% bolus 250 mL 250 mL intravenous Q15 Min PRN Anibal Mon MD ??? docusate sodium (COLACE) capsule 100 mg 100 mg oral BID Rhina Granados MD 100 mg at 05/14/21 09 ??? [Held by Provider] enoxaparin (LOVENOX) syringe 40 mg 40 mg subcutaneous Daily-2100 Rhina Graandos MD 40 mg at 05/10/211 ??? furosemide (LASIX) 10 mg/mL injection 20 mg 20 mg intravenous BID DIURETIC Yves Weinberg MD 20 mg at 05/14/21 09 ??? glucagon injection 1 mg 1 mg intramuscular Q30 Min PRN Anibal Lara MD ??? guaiFENesin ER (MUCINEX) extended release tablet 600 mg 600 mg oral BID Tiana Spence NP 600 mg at 05/14/21 09 ??? haloperidol (HALDOL) injection 2 mg 2 mg intramuscular Q8H PRN Varsha Crowder NP ??? insulin glargine (LANTUS, SEMGLEE) 100 unit/mL injection 24 Units 24 Units subcutaneous NightlyReddy Hurtado, Supraja Hurtado, MD 24 Units at 05/13/21 2019 ??? insulin lispro (HumaLOG, ADMELOG) 100 unit/mL injection 0-10 Units 0-10 Units subcutaneous TID with meals Anibal Lara MD 2 Units at 05/13/21 172 ??? insulin lispro (HumaLOG, ADMELOG) 100 unit/mL injection 0-5 Units 0-5 Units subcutaneous Nightly Anibal Lara MD 1 Units at 05/13/212019 ??? insulin lispro (HumaLOG, ADMELOG) 100 unit/mL injection 10 Units 10 Units subcutaneous TID withmeals Sixto Fish MD ??? metoprolol XL (TOPROL-XL) extended release tablet 12.5 mg 12.5 mg oral Daily Lester Batista MD12.5 mg at 05/14/21908 ??? ondansetron (ZOFRAN) injection 4 mg 4 mg intravenous Q6H PRN Rhina Granados MD ??? pantoprazole DR (PROTONIX) extended release tablet 40 mg 40 mg oral Daily Rhina Granados MD40 mg at 05/14/21 0910 ??? piperacillin-tazobactam (ZOSYN) 3.375 g in sodium chloride 0.9% 100 mL IVPB 3.375 g [id number] LEAH Eleonora Duarte NP 200 mL/hr at 05/14/21910 3.375 g at 05/14/21 09 ??? polyethylene glycol (MIRALAX) packet 17 g 17 g oral BID Rhina Granados MD 17 g at 05/14/21 0912 ??? potassium chloride ER (KLOR-CON) extended release tablet 20 mEq 20 mEq oral BID Eleonora Duarte NP 20 mEq at 05/14/21908 ??? QUEtiapine (SEROquel) tablet 25 mg 25 mg oral Daily Varsha Crowder NP 25 mg at 05/14/21908 ??? QUEtiapine (SEROquel) tablet 50 mg 50 mg oral Nightly Varsha Crowder NP 50 mg at ??? sodium chloride 0.9% flush 0.5-20 mL 0.5-20 mL intra-catheter Q8H Rhina Flores MD 10 mL at 05/14/21 0645 [facility] [id number] [facility] [id number] ?? CT Abdomen Pelvis WO Contrast Status: Final result Study Result Narrative & Impression EXAMINATION: CT OF THE ABDOMEN AND PELVIS WITHOUT CONTRAST ?? CLINICAL HISTORY: Abdominal pain ?? COMPARISON: None ?? TECHNIQUE: Axial CT imaging of the abdomen and pelvis performed without oral or intravenous contrast. 2-D Reformatted images are obtained. Evaluation of solid organs, bowel wall and vascular structures is limited due to the lack of IV contrast. ? FINDINGS: ?? LOWER THORAX: patchy infiltrate in the left base with reticular scarring and atelectasis. Trace left pleural effusion ? LIVER: Normal in appearance as visualized. BILIARY: Normal appearance of the gallbladder with no biliary ductal dilatation. as visualized. SPLEEN: Normal in appearance as visualized. PANCREAS: Normal in appearance ?? ADRENALS: Normal in appearance KIDNEYS: Normal renal outlines. No sign of hydronephrosis. Occasional small cyst(s) are seen in the left kidney.. ?? GI TRACT: The bowel is normal in caliber. No free intraperitoneal air is present. Fecal loading of the distal colon ?? APPENDIX: Normal in appearance ABDOMINAL WALL: Unremarkable ?? RETROPERITONEUM/LYMPH/MESENTERIC NODES: No retroperitoneal or mesenteric lymphadenopathy identified. ?? VESSELS: Minor after carotid vascular plaque.. ?? PELVIC ORGANS: There is a moderate amount of hyperdense contents within the urinary bladder surrounding the Osorio catheter consistent with hemorrhage. There is also a small amount of air from Osorio placement.. This may obscure some subtle bladder wall abnormalities. ?? BONES: The visualized osseous structures are intact. No suspicious osteolytic or osteoblastic lesions. . ?? IMPRESSION: ?? Hemorrhagic contents within the urinary bladder which also contains a Osorio catheter ?? Electronically signed by: Deandre Lomeli M.D. Assessment and Plan: Principal Problem: ST elevation myocardial infarction (STEMI) (HCC) History of ?bladder tumor, had tumor resection [place] and clot evacuation Earlier this month. ?? Patient has evidence of clots in the bladder. Hb stable. Off bloodf thinners currently. For cysto and clot evacuation and fulguration. ?? Risks and complications including bleeding, blood transfusion, bladder perforation, uti, sepsis,catheter problems explained.Patient wants to proceed. Braulio Ortega MD [facility] Office [phone] 05/14/2021 9:54 AM F FORESTER * Tereza Mccullough ESCROW CLERK - 05/14/2021 9:25 AM CST Nephrology Progress Note [place] [facility] SUBJECTIVE 05/14 Sodium 127 yesterday and lasix restarted by ; pt. diuresing. today's labs pending.Osorio draining reddish-brown urine; to have cysto in future.Hgb and BP stable. Doing fair. Some flank pain and mild dyspnea. Na 127 and a little lower. BP better. Agreeable to cysto, but urology planning on conservative tx. Will start loop diuresis. OBJECTIVE Vitals: Vitals: 05/14/21 0005 05/14/21 0421 05/14/21 0600 05/14/21 0803 BP: 98/56 99/63 117/60 BP Location: Right arm Right arm Right arm Patient Position: Lying Lying Lying Pulse: 85 87 87 Resp: 18 18 18 Temp: 36.8 ??C (98.2 ??F) 36.4 ??C (97.6 ??F) 37 ??C (98.6 ??F) TempSrc: Oral Oral Oral SpO2: 90% 90% 90% Weight: 79 kg (174 lb 2.6 oz) Height: Intake/Output Summary (Last 24 hours) at 05/14/2021 0925 Last data filed at 05/14/2021 0605 Gross per 24 hour Intake -- Output 1350 ml Net -1350 ml REVIEW OF SYSTEMS Review of Systems Constitutional: Negative. HENT: Negative. Eyes: Negative. Respiratory: Negative. Cardiovascular: Negative. Gastrointestinal: Negative. Genitourinary: Hematuria Musculoskeletal: Negative. Skin: Negative. Allergic/Immunologic: Negative. Hematological: Negative. All other systems reviewed and are negative. PHYSICAL EXAM Physical Exam Constitutional: comfortable with nasal O2 HENT: wnl Head: Normocephalic. Eyes: no icterus Neck: No JVD Cardiovascular: Normal rate. Pulmonary/Chest: Effort normal.Lung sounds clear,decreased anteriorly Abdominal: Soft. NT,active BS Musculoskeletal: Normal range of motion. Neurological: Alert, oriented. Skin: Skin is warm. Nursing note and vitals reviewed. MEDICATIONS Current Facility-Administered Medications: ??? acetaminophen (TYLENOL) tablet 650 mg, 650 mg, oral, Q6H PRN, Eleonora Duarte NP, 650 mg at 05/13/212021 ? ? al & mag hydroxide gekpdyegqwr-ffuyvckidrmhwvw-iszdmvcnj-nystatin (MAGIC MOUTHWASH) suspension 1-1-1-1, 20 mL, swish & spit, Q4H PRN, Tiana Spence NP, 20 mL at 05/12/21 1457 ??? albuterol 2.5 mg /3 mL (0.083 %) nebulizer solution 2.5 mg, 2.5 mg, nebulization, Q4H PRN (RT),Ralf Tomlinson MD ??? aspirin enteric coated tablet 81 mg, 81 mg, oral, Daily, Varsha Crowder NP, 81 mg at 05/14/21 0909 ??? atorvastatin (LIPITOR) tablet 80 mg, 80 mg, oral, Nightly, Rhina Granados MD, 80 mg at 05/13/212013 ??? [Held by Provider] clopidogreL (PLAVIX) tablet 75 mg, 75 mg, oral, Daily, Rhina Granados MD, 75 mg at 05/10/21 0854 ??? dextrose oral liquid liquid 15 g, 15 g, oral, Q15 Min PRN OR dextrose (D10W) 10% bolus 250 mL, 250 mL, intravenous, Q15 Min PRN, Anibal Lara MD ??? docusate sodium (COLACE) capsule 100 mg, 100 mg, oral, BID, 100 mg at 05/14/21 0909 OR [DISCONTINUED] docusate (COLACE) 10 mg/mL oral liquid 100 mg, 100 mg, feeding tube, BID, Rhina Granados MD, 100 mg at 05/05/21 0842 ??? [Held by Provider] enoxaparin (LOVENOX) syringe 40 mg, 40 mg, subcutaneous, Daily-2100, Rhina Granados MD, 40 mg at 05/10/21 2141 ??? furosemide (LASIX) 10 mg/mL injection 20 mg, 20 mg, intravenous, BID DIURETIC, Yves Weinberg MD, 20 mg at 05/14/21 0909 ??? glucagon injection 1 mg, 1 mg, intramuscular, Q30 Min PRN, Anibal Lara MD ??? guaiFENesin ER (MUCINEX) extended release tablet 600 mg, 600 mg, oral, BID, Tiana Spence NP, 600 mg at 05/14/21 0909 ??? haloperidol (HALDOL) injection 2 mg, 2 mg, intramuscular, Q8H PRN, Varsha Crowder NP ??? insulin glargine (LANTUS, SEMGLEE) 100 unit/mL injection 24 Units, 24 Units, subcutaneous, Nightly, Sixto Fish MD, 24 Units at 05/13/21 2019 ??? insulin lispro (HumaLOG, ADMELOG) 100 unit/mL injection 0-10 Units, 0-10 Units, subcutaneous, TID with meals, Anibal Lara MD, 2 Units at 05/13/21 1725 ??? insulin lispro (HumaLOG, ADMELOG) 100 unit/mL injection 0-5 Units, 0-5 Units, subcutaneous, Nightly, Anibal Lara MD, 1 Units at 05/13/21 2020 ??? insulin lispro (HumaLOG, ADMELOG) 100 unit/mL injection 10 Units, 10 Units, subcutaneous, TID with meals, Sixto Fish MD ??? metoprolol XL (TOPROL-XL) extended release tablet 12.5 mg, 12.5 mg, oral, Daily, ShamimLester MD, 12.5 mg at 05/14/21 0909 ??? ondansetron (ZOFRAN) injection 4 mg, 4 mg, intravenous, Q6H PRN, Rhina Granados MD ??? pantoprazole DR (PROTONIX) extended release tablet 40 mg, 40 mg, oral, Daily, Rhina Granados MD, 40 mg at 05/14/21 0910 ??? piperacillin-tazobactam (ZOSYN) 3.375 g in sodium chloride 0.9% 100 mL IVPB, 3.375 g, intravenous, Q6H LEAH, Eleonora Duarte NP, Last Rate: 200 mL/hr at 05/14/21 0911, 3.375 g at 05/14/21 0911 ??? polyethylene glycol (MIRALAX) packet 17 g, 17 g, oral, BID, Rhina Granados MD, 17 g at 05/14/21 0912 ??? potassium chloride ER (KLOR-CON) extended release tablet 20 mEq, 20 mEq, oral, BID, Eleonora Duarte NP, 20 mEq at 05/14/21 09 ??? QUEtiapine (SEROquel) tablet 25 mg, 25 mg, oral, Daily, Varsha Crowder NP, 25 mg at 05/14/21908 ??? QUEtiapine (SEROquel) tablet 50 mg, 50 mg, oral, Nightly, Varsha Crowder NP, 50 mg at 05/13/212013 ??? sodium chloride 0.9% flush 0.5-20 mL, 0.5-20 mL, intra-catheter, Q8H LEAH, Rhina Granados MD, 10 mL at 05/14/21 0645 Lab/Radiology/Diagnostic Review: Recent Results (from the past 24 hour(s)) POCT glucose Collection Time: 05/13/21 5:24 PM Result Value Ref Range Glucose, POC 194 70 - 199 mg/dL POCT glucose Collection Time: 05/13/21 8:13 PM Result Value Ref Range Glucose, POC 174 70 - 199 mg/dL POCT glucose Collection Time: 05/14/21 6:43 AM Result Value Ref Range Glucose, POC 149 70 - 199 mg/dL XR Chest 1 View - Portable - in AM Result Date: 05/11/2021 Narrative: EXAMINATION: XR CHEST 1 VIEW HISTORY: The patient is a 60-year-old male who has had cardiac surgery. Comparison made with the previous study dated 05/10/2021. TECHNIQUE: AP portable view of the chest. FINDINGS: Lungs clear. Heart not enlarged. Aortic atherosclerosis. No failure. The right IJ [place] catheter has been retracted with its tip in the distal superior vena cava. Impression: IMPRESSION: No failure. Electronically signed by: Elvira Blackman M.D. XR Chest 1 View - Portable - in AM Result Date: 05/10/2021 Narrative: EXAMINATION: XR CHEST 1 VIEW DATE: 05/10/2021 2:40 AM COMPARISON: 05/09/2021 HISTORY: 60-year-old man cardiac surgery follow-up FINDINGS:Compared with study the previous day, significant improvement. There is cardiomegaly with postsurgical changes with continued and decreasing failure. Bibasilar atelectasis with left pleural fluid decreasing. No pneumothorax. [place] catheter remainsin place Impression: Decreasing failure, atelectasis and left effusion. Electronically signed by: Deandre Lomeli M.D. XR Chest 1 View - Portable - in AM Result Date: 05/09/2021 Narrative: EXAMINATION: XR CHEST 1 VIEW DATE: 05/09/2021 4:10 AM HISTORY: 60-year-old man cardiac surgery follow-up FINDINGS:Compared with study the previous day, significant improvement. There is cardiomegaly with postsurgical changes with continued but decreasing failure. Bibasilar atelectasis with left pleural fluid decreasing. No pneumothorax. [place] catheter remains in place Impression: Decreasing failure, atelectasis and left effusion. Electronically signed by: Deandre Lomeli M.D. XR Chest 1 View - Portable - in AM Result Date: 05/08/2021 Narrative: EXAMINATION: XR CHEST 1 VIEW DATE: 05/08/2021 4:15 AM HISTORY: 60-year-old man cardiac surgery follow-up FINDINGS:Compared with study the previous day, significant improvement. There is cardiomegaly with postsurgical changes with continued but decreasing failure. Bibasilar atelectasis with left pleural fluid. No pneumothorax. [place] catheter remains in place Impression: Decreasing failure. No pneumothorax. Electronically signed by: Deacon Cummings M.D. XR Chest 1 View - Portable - in AM Result Date: 05/07/2021 Narrative: EXAMINATION: XR CHEST 1 VIEW DATE: 05/07/2021 3:55 AM HISTORY: 60-year-old man follow-upcardiac surgery FINDINGS:Compared with study of the previous day, postsurgical changes in the heartand mediastinum with cardiomegaly are stable. [place] catheter remains in place. Left thoracostomy tube remains in place. No pneumothorax. Pulmonary vascular congestion with interstitial lung disease remain prominent. Impression: Persistent prominent interstitial lung disease with failure. Electronically signed by: Deacon Cummings M.D. XR Chest 1 View - Portable - in AM Result Date: 05/06/2021 Narrative: EXAMINATION: XR CHEST 1 VIEW DATE: 05/06/2021 4:05 AM INDICATION: Cardiac surgery. COMPARISON: 05/05/2021. FINDINGS: No pneumothorax or pleural effusion. Similar-appearing pulmonary vascular congestion and interstitial opacities most notable in the bilateral upper lobes consistent with pulmonary edema. Pulmonary catheter catheter, left thoracostomy tube, and mediastinal drain are appropriately position. Intra-aortic balloon pump is appropriately positioned. Interval removal of endotracheal tube. Impression: 1. Interval removal of endotracheal tube. Remaining tubes and lines are appropriately positioned. 2. Similar-appearing cardiomegaly, pulmonary vascular congestion, and prominent bilateralinterstitial markings suggestive of interstitial pulmonary edema. Electronically signed by: Richard Zhao II, D.O. XR Chest 1 View - Portable - in AM Result Date: 05/05/2021 Narrative: EXAMINATION: XR CHEST 1 VIEW DATE: 05/05/2021 4:15 AM HISTORY: 60-year-old man cardiac surgery follow-up FINDINGS:Compared with the study of the prior day, tubes and catheters remain satisfactorily positioned. Worsening pulmonary vascular congestive changes are seen. Cardiomegaly with postsurgical changes stable. No pneumothorax. Impression: Increasing failure. Electronically signed by: Deacon Cummings M.D. XR Chest 1 Vw Portable Result Date: 05/05/2021 Narrative: EXAMINATION: XR CHEST 1 VIEW DATE: 05/04/2021 8:40 PM HISTORY: 60-year-old man coronary artery bypass follow-up FINDINGS:Compared with the study of earlier the same day, postsurgical changes now evident within the heart and mediastinum with cardiomegaly. Interval placement of endotracheal tube, nasogastric tube, [place] catheter, left thoracostomy tube and mediastinal drain all in satisfactory position. No pneumothorax. Interstitial lung disease with mild pulmonary vascular congestive changes. Aortic balloon pump is no longer seen. Impression: Tube placements with postsurgical changes with cardiomegaly with interstitial lung disease and mild failure with no pneumothorax. Electronically signed by: Deacon Cummings M.D. XR Chest 1 Vw Portable Result Date: 05/04/2021 Narrative: EXAMINATION: XR CHEST 1 VIEW DATE: 05/04/2021 9:05 AM HISTORY: Coronary artery disease FINDINGS:Comparison is made with study of 2 days earlier. Cardiomegaly, COPD with interstitial lung disease stable. Mild failure. Aortic balloon pump stable in position at the proximal descending aorta. No pneumothorax. No new infiltrates. Impression: Stable appearance. COPD cardiomegaly, with mild failure suspected. Electronically signed by: Deacon Cummings M.D. XR Chest 1 Vw Portable Result Date: 05/02/2021 Narrative: EXAMINATION: XR CHEST 1 VIEW DATE: 05/02/2021 5:15 AM INDICATION: Intra-aortic balloon pump. COMPARISON: 05/01/2021. FINDINGS: Appropriately positioned intra-aortic balloon pump appears unchanged. No pneumothorax or pleural effusion. Mixed reticular and alveolar opacities demonstrated inall lung lobes appear most significant in the upper lobes and perihilar regions, unchanged. Impression: 1. Appropriately positioned intra-aortic balloon pump. 2. Similar mixed reticular and alveolar opacities most notable in the bilateral upper lobes and perihilar region. Electronically signed by: Richard Lopez II, D.O. XR Chest 1 Vw Portable Result Date: 05/02/2021 Narrative: EXAMINATION: XR CHEST 1 VIEW DATE: 05/01/2021 8:15 PM INDICATION: Hypoxia. COMPARISON: None. FINDINGS: No pneumothorax. No pleural effusion. Mixed reticular and alveolar opacities are demonstrated in all lung lobes but demonstrate an upper lobe and perihilar predominance. Findings may represent pulmonary edema on background of centrilobular emphysematous changes. Underlying infectious process not entirely excludable. Cardiac mediastinal silhouette is stable in appearance. No acute osseous abnormality. Impression: Mixed reticular and alveolar opacities are demonstrated in all lung lobes but demonstrate an upper lobe and perihilar predominance. Findings may represent pulmonary edema on background ofcentrilobular emphysematous changes. Electronically signed by: Richard Lopez II, D.O. Transthoracic Echo (TTE) Limited Result Date: 05/07/2021 Narrative: [place] [id number] Limited Echocardiogram Report Patient Name: DEEPAK ALVARADO : 1960 StudyDate: 05/07/2021 12:16:52 PM Gender: M Tech: SR Location: [id number] Ref.Provider: RHINA GRANADOS Height(Cm): 175 BSA: 2.1 Weight(Kg): 91 Heart Rate: 82 BP: 127/44 Quality: Good Order Provider: Dr. Sutton Procedures: Echocardiographic Report: Limited transthoracic echocardiogram with 2D and M-Mode. Measurements: 2D/M Mode Measurement Value Normal Range LVIDd 2D 3.43 [ 4.20 - 5.90 ] cm LVIDs 2D 2.59 [ 2.30 - 3.90 ] cm LVPWd 2D 1.01 [ 0.60 - 1.00 ] cm IVSd 2D 0.71 [ 0.60 - 0.90 ] cm Findings: Left Ventricle: Reduced left ventricular cavity size. Mild global left ventricular systolic dysfunction. Ejection fraction is measured at 42 %. These segments of the LV are hypokinetic: apical anterior segment. Pericardium: Trivial pericardial effusion. No echocardiographic evidence to suggest pericardial tamponade. Conclusions: Reduced left ventricular cavity size. Mild globalleft ventricular systolic dysfunction. Ejection fraction is measured at 42 %. These segments of theLV are hypokinetic: apical anterior segment. Trivial pericardial effusion. No echocardiographic evidence to suggest pericardial tamponade. Electronically Signed By: Gianni Francois MD, [facility] 2021-05-07 12:54:09 STAFF FORESTER Transthoracic Echo Complete W Doppler/CF Result Date: 05/02/2021 Narrative: [address] [id number] Echocardiogram Report Patient Name: DEEPAK ALVARADO W : 1960 Study Date: 05/02/2021 8:50:02 AM Gender: M Tech: SR Location: [id number] Ref Provider: NALINI CLAYTONHeight(Cm): 175 BSA: 2.11 Weight(Kg): 92 Heart Rate: 89 BP: 102/52 Quality: Good Order Provider: NALINI CLAYTON PROCEDURES: Echocardiographic Report: Transthoracic echocardiogram with complete 2D, M-Mode, and color Doppler examination. INDICATIONS: Free Text. Measurements: 2D/M Mode DopplerMeasurement Value Normal Range Measurement Value Normal Range EF Teich 2D 30.0 [ 55.0 - 70.0 ] percent CHRISTINA Vmax 2.04 [ 2.00 - 4.00 ] cm2 EF Mod 4C 42.2 [ 55.0 - 70.0 ] percent AV Mean PG 5 [ 2 - 4 ]mmHg LVIDd 2D 4.54 [ 4.20 - 5.90 ] cm AV Peak Ramesh 1.54 [ 1.00 - 1.70 ] m/s LVIDs 2D 3.91 [ 2.30 - 3.90 ] cm AV VTI 26.93 cm LVPWd 2D 0.92 [ 0.60 - 1.00 ] cm LVOT Diam 2.20 [ 1.70 - 2.10 ] cm IVSd 2D0.76 [ 0.60 - 0.90 ] cm LVOT Peak Ramesh 0.83 [ 0.70 - 1.10 ] m/s LA Dimension MM 5.08 [ 3.00 - 4.00 ] cm LVOT VTI 13.82 [ 20.00 - 30.00 ] cm AoR Diam MM 4.12 [ 2.60 - 3.70 ] cm MV E Peak Ramesh 0.85 [ 0.60 - 1.30 ] m/s LA Volume Index 20.83 [ 16.00 - 28.00 ] cc/m2 MV A Peak Ramesh 1.14 [ 1.00 - 1.20 ] m/sACS MM 1.91 [ 1.50 - 2.60 ] cm MV Mean PG 1 [ <= 5 ] mmHg MV PHT 43 [ 20 - 100 ] msec MVA 2.20 MV Decel Time 137 [ 104 - 258 ] msec PV Peak Ramesh 1.10 [ 0.40 - 0.80 ] m/s TR Peak Ramesh 1.32 [ 1.00 - 2.80 ] m/s TR Peak PG 7 mmHg RVSP 16.93 [ 10.00 - 36.00 ] mmHg E' 0.06 E/E' 14.00 Measurement ValueNormal Range Measurement Value Normal Range 2D/M Mode Doppler - FINDINGS: Atrial Septum: Normal atrial septum. Left Ventricle: Normal left ventricular size. Left ventricle not well visualized. Thereis severe hypokinesis of the mid anteroseptal, anterior, and apical [place]illa. Normal left ventricular wall thickness. Impaired diastolic relaxation Grade I. Ejection fraction is visually estimated at 40%. Left Atrium: The left atrium is normal in size. Right Ventricle: Normal right ventricular size. Normal right ventricular systolic function. Right Atrium: The right atrium is normal in size. Aortic Valve: Normal structure of the aortic valve. No evidence of hemodynamically significant aortic stenosis by Doppler. No aortic regurgitation. Mitral Valve: Normal structure of the mitral valve. Trivial regurgitation of the mitral valve. Pulmonic Valve: Pulmonic valve not well visualized. Trivial regurgitation in the pulmonic valve. Tricuspid Valve: Normal structure of the tricuspid valve. Trivial regurgitation in the tricuspid valve. Pericardium: Normal pericardium with no significant pericardial effusion. Aorta: Normal aortic root. IVC: Normal size and normal respiratory collapse consistent with normal right atrial pressure (<5 mmHg). CONCLUSIONS: Technically difficult study with limitedviews. Normal left ventricular size. Left ventricle not well visualized. There is severe hypokinesis of the mid anteroseptal, anterior, and apical mancilla. Normal left ventricular wall thickness. Impaired diastolic relaxation Grade I. Ejection fraction is visually estimated at 40 %. Normal right ventricular size. Normal right ventricular systolic function. Normal structure of the mitral valve. Trivi al regurgitation of the mitral valve. Normal structure of the tricuspid valve. Trivial regurgitation in the tricuspid valve. Electronically Signed By: Rylee Brito DO, [facility] EDMONDSJustyna, VILMA, FAISAL 2021-05-02 14:07:25 STAFF FORESTER CC: CC: CC: ASSESSMENT/PLAN Hyponatremia from SIADH and possibly from zaroxylyn use. Work up for hyponatremia ongoing. PO FR. DC Zaroxylyn. No normotonic fluids yet. Urine lytes and osm. If in clinical fluid overload, may use tolvaptan. Renal fn is normal. Na worse ans with hx of fluid overload, will start loop diuresis. Monitor sodium daily and continue diuresis ?? Recent bladder tumor removal with hematuria. ?? -??Urology is following.H/H stable -Cysto vs conservative tx. ?? Hypokalemia from diuresis. Replace PRN. ?? 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 ?? Syncopal episode -(+) orthostasis -receiving albumin -IV lasix was discontinued. ??There is a 1x order for zaroxolyn 10mg this am- recommend holding fornow. ??D/w RN ?? Coronary artery disease -s/p CABG post STEMI -??underwent four-vessel bypass ??MAE to the LAD, sequential saphenous vein graft to diagonal and obtuse marginal and a vein graft to the PDA. -s/p??low dose dobutamine -paced rhythm -??IV??diuretics??discontinued d/t syncopal episode today (see above) Diuresis resumed ?? Moderate LV dysfunction -s/p IV??lasix??and??low dose??dobutamine -Beta blockers, ??[place] once off dobutamine-would hold off adding given syncopal episode this am -repeat ECHO 05/07 EF 42% (see above) ?Nonsustained ventricular tachycardia -no recurrence of VT -K 3.7, Mg??2.0. ??Supplement to keep K >/= 4.0, Mg >/= 2.0 ?Diabetes mellitus -?on lantus and SSI ?? COPD: ?? -on?O2 NC??4L (dried blood to L nare humidified o2 ordered) ?? Dyslipidemia -?Continue atorvastatin. ?PAD -?Stable ? Anemia -Hb??11.4 (10.5)??(8.6) -monitor ?? I can be reached at [phone] with any concerns. Thank you Rhina Granados MD for the consult. Tereza Mccullough NP [employer] [phone] Cosigned by Ashley Fox MD at 05/22/2021 11:26 AM STAFF FORESTER F FORESTER F FORESTER * Cristina Serrano NP - 05/14/2021 6:55 AM CST Daily Progress SUBJECTIVE: Mr. Alvarado is resting quietly, wants all the procedures done so he can go home. Evidently did not have the cystoscopy done yesterday and is to have it done today. Still with hematuria, osorio in. OBJECTIVE: Vitals: 05/13/21 1933 05/14/21 0005 05/14/21 0421 05/14/21 0600 BP: 96/57 98/56 99/63 BP Location: Right arm Right arm Right arm Patient Position: Lying Lying Lying Pulse: 91 85 87 Resp: 18 18 18 Temp: 36.2 ??C (97.1 ??F) 36.8 ??C (98.2 ??F) 36.4 ??C (97.6 ??F) TempSrc: Oral Oral Oral SpO2: 92% 90% 90% Weight: 79 kg (174 lb 2.6 oz) Height: Intake/Output Summary (Last 24 hours) at 05/14/2021 0655 Last data filed at 05/14/2021 0605 Gross per 24 hour Intake -- Output 1350 ml Net -1350 ml Scheduled Medications Medication Dose Route Frequency ??? aspirin enteric coated tablet 81 mg 81 mg oral Daily ??? atorvastatin (LIPITOR) tablet 80 mg 80 mg oral Nightly ??? [Held by Provider] clopidogreL (PLAVIX) tablet 75 mg 75 mg oral Daily ??? docusate sodium (COLACE) capsule 100 mg 100 mg oral BID ??? [Held by Provider] enoxaparin (LOVENOX) syringe 40 mg 40 mg subcutaneous Daily-2100 ??? furosemide (LASIX) 10 mg/mL injection 20 mg 20 mg intravenous BID DIURETIC ??? guaiFENesin ER (MUCINEX) extended release tablet 600 mg 600 mg oral BID ??? insulin glargine (LANTUS, SEMGLEE) 100 unit/mL injection 24 Units 24 Units subcutaneous Nightly ??? insulin lispro (HumaLOG, ADMELOG) 100 unit/mL injection 0-10 Units 0-10 Units subcutaneous TID with meals ??? insulin lispro (HumaLOG, ADMELOG) 100 unit/mL injection 0-5 Units 0-5 Units subcutaneous Nightly ??? insulin lispro (HumaLOG, ADMELOG) 100 unit/mL injection 10 Units 10 Units subcutaneous TID withmeals ??? metoprolol XL (TOPROL-XL) extended release tablet 12.5 mg 12.5 mg oral Daily ??? pantoprazole DR (PROTONIX) extended release tablet 40 mg 40 mg oral Daily ??? piperacillin-tazobactam (ZOSYN) 3.375 g in sodium chloride 0.9% 100 mL IVPB 3.375 g [id number] LEAH ??? polyethylene glycol (MIRALAX) packet 17 g 17 g oral BID ??? potassium chloride ER (KLOR-CON) extended release tablet 20 mEq 20 mEq oral BID ??? QUEtiapine (SEROquel) tablet 25 mg 25 mg oral Daily ??? QUEtiapine (SEROquel) tablet 50 mg 50 mg oral Nightly ??? sodium chloride 0.9% flush 0.5-20 mL 0.5-20 mL intra-catheter Q8H [facility] LABS: Recent Labs Lab Units 05/13/21 0612 WBC K/cumm 9.8 HEMOGLOBIN g/dL 9.7* HEMATOCRIT % 29.8* PLATELETS K/cumm 253 Recent Labs Lab Units 05/14/21 0643 05/13/21 0816 05/13/21 0613 SODIUM mmol/L -- -- 127* POTASSIUM PLASMA mmol/L -- -- 3.5 CHLORIDE mmol/L -- -- 94* CO2 mmol/L -- -- 22 ANIONGAP mmol/L -- -- 11 GLUCOSE mg/dL -- -- 249* POC GLUCOSE MONITOR mg/dL 149 < > -- BUN SERUM mg/dL -- -- 27* CREATININE mg/dL -- -- 0.76* CALCIUM mg/dL -- -- 8.1* < > = values in this interval not displayed. No results found for: BNP No results found for: TROPONINI Exam General: in no apparent distress and well developed and well nourished Neuro: Alert and oriented x 3, HEENT: normocephalic, atraumatic, Lungs: symmetric, unlabored, clear to auscultation bilaterally Heart: S1,S2, regular rate & rhythm, no murmurs, rubs, or gallops Abdomen: soft, non-tender, non-distended, bowel sounds present Extremities: no LE edema, palpable peripheral pulses BL ASSESSMENT/PLAN: CAD status post CABG for STEMI -Cardiac cath on 05/01 with 40% distal LM; 100% prox LAD; 90% prox Cx; 50% prox and distal RCA -Left ventriculogram:??Moderate blanka-apical hypokinesis; echo on 05/02 with EF ~40% -balloon angioplasty was performed during acute MT and subsequently patient underwent CABG x4 on 05/04/2021 - ischemic cardiomyopathy EF 42% - Metoprolol Xl 12.5 mg daily, - ACEi/ARB when blood pressure is more stable - BP remains soft ?? 2. Dyslipidemia: -stable on Atorvastatin 80mg qday ?? 3. Diabetes -stable on insulin per primary team ?? 4. COPD: -stable without any acute issues ?? 5. PAD: - stable ?? 6. Hematuria- Plavix is currently on hold urology following - -still to have cystoscopy - was not done yesterday and now to have it today -osorio intact Cristina Serrano NP, MSN, ANP-[facility] 05/14/2021 6:55 AM F FORESTER * Yves Weinberg MD - 05/13/2021 9:18 PM CST Nephrology Progress Note [facility] SUBJECTIVE Doing fair. Some flank pain and mild dyspnea. Na 127 and a little lower. BP better. Agreeable to cysto, but urology planning on conservative tx. Will start loop diuresis. OBJECTIVE Vitals: Vitals: 05/13/21 1720 05/13/21 1725 05/13/21 1730 05/13/21 1933 BP: 96/57 BP Location: Right arm Patient Position: Lying Pulse: 93 90 91 91 Resp: 18 Temp: 36.2 ??C (97.1 ??F) TempSrc: Oral SpO2: 92% Weight: Height: Intake/Output Summary (Last 24 hours) at 05/13/2021 2118 Last data filed at 05/13/2021 1825 Gross per 24 hour Intake -- Output 2400 ml Net -2400 ml REVIEW OF SYSTEMS Review of Systems Constitutional: Negative. HENT: Negative. Eyes: Negative. Respiratory: Negative. Cardiovascular: Negative. Gastrointestinal: Negative. Genitourinary: Negative. Musculoskeletal: Negative. Skin: Negative. Allergic/Immunologic: Negative. Hematological: Negative. All other systems reviewed and are negative. PHYSICAL EXAM Physical Exam Constitutional: Appears well-developed. HENT: wnl Head: Normocephalic. Eyes: Pupils are equal, round, and reactive to light. Neck: Normal range of motion. Neck supple. Cardiovascular: Normal rate. Pulmonary/Chest: Effort normal and breath sounds normal. Abdominal: Soft. Musculoskeletal: Normal range of motion. Neurological: Alert, oriented. Skin: Skin is warm. Nursing note and vitals reviewed. MEDICATIONS Current Facility-Administered Medications: ??? acetaminophen (TYLENOL) tablet 650 mg, 650 mg, oral, Q6H PRN, Eleonora Duarte NP, 650 mg at 05/13/212021 ? ? al & mag hydroxide ujfialtgyzw-plroxzrcqwbdljg-dvgqjxlgi-nystatin (MAGIC MOUTHWASH) suspension 1-1-1-1, 20 mL, swish & spit, Q4H PRN, Tiana Spence NP, 20 mL at 05/12/21 1457 ??? albuterol 2.5 mg /3 mL (0.083 %) nebulizer solution 2.5 mg, 2.5 mg, nebulization, Q4H PRN (RT),Ralf Tomlinson MD ??? aspirin enteric coated tablet 81 mg, 81 mg, oral, Daily, Varsha Crowder NP, 81 mg at 05/13/21 0937 ??? atorvastatin (LIPITOR) tablet 80 mg, 80 mg, oral, Nightly, Rhina Granados MD, 80 mg at 05/13/212013 ??? [Held by Provider] clopidogreL (PLAVIX) tablet 75 mg, 75 mg, oral, Daily, Rhina Granados MD, 75 mg at 05/10/21 0854 ??? dextrose oral liquid liquid 15 g, 15 g, oral, Q15 Min PRN OR dextrose (D10W) 10% bolus 250 mL, 250 mL, intravenous, Q15 Min PRN, Anibal Lara MD ??? docusate sodium (COLACE) capsule 100 mg, 100 mg, oral, BID, 100 mg at 05/13/21 0936 OR [DISCONTINUED] docusate (COLACE) 10 mg/mL oral liquid 100 mg, 100 mg, feeding tube, BID, Rhina Granados MD, 100 mg at 05/05/21 0842 ??? [Held by Provider] enoxaparin (LOVENOX) syringe 40 mg, 40 mg, subcutaneous, Daily-2100, Rhina Granados MD, 40 mg at 05/10/212140 ??? glucagon injection 1 mg, 1 mg, intramuscular, Q30 Min PRN, Anibal Lara MD ??? guaiFENesin ER (MUCINEX) extended release tablet 600 mg, 600 mg, oral, BID, Tiana Spence NP, 600 mg at 05/13/21 0936 ??? haloperidol (HALDOL) injection 2 mg, 2 mg, intramuscular, Q8H PRN, Varsha Crowder NP ??? insulin glargine (LANTUS, SEMGLEE) 100 unit/mL injection 24 Units, 24 Units, subcutaneous, Nightly, Sixto Fish MD, 24 Units at 05/13/21 2019 ??? insulin lispro (HumaLOG, ADMELOG) 100 unit/mL injection 0-10 Units, 0-10 Units, subcutaneous, TID with meals, Anibal Lara MD, 2 Units at 05/13/21 1725 ??? insulin lispro (HumaLOG, ADMELOG) 100 unit/mL injection 0-5 Units, 0-5 Units, subcutaneous, Nightly, Anibal Lara MD, 1 Units at 05/13/212019 ??? [START ON 05/14/2021] insulin lispro (HumaLOG, ADMELOG) 100 unit/mL injection 10 Units, 10 Units, subcutaneous, TID with meals, Sixto Fish MD ??? metoprolol XL (TOPROL-XL) extended release tablet 12.5 mg, 12.5 mg, oral, Daily, Lester Batista MD, 12.5 mg at 05/13/21936 ??? ondansetron (ZOFRAN) injection 4 mg, 4 mg, intravenous, Q6H PRN, Rhina Granados MD ??? pantoprazole DR (PROTONIX) extended release tablet 40 mg, 40 mg, oral, Daily, Rhina Granados MD, 40 mg at 05/13/21935 ??? piperacillin-tazobactam (ZOSYN) 3.375 g in sodium chloride 0.9% 100 mL IVPB, 3.375 g, intravenous, Q6H [facility], Eleonora Duarte NP, Last Rate: 200 mL/hr at 05/13/211723, 3.375 g at 05/13/211723 ??? polyethylene glycol (MIRALAX) packet 17 g, 17 g, oral, BID, Rhina Granados MD, 17 g at 05/13/21935 ??? potassium chloride ER (KLOR-CON) extended release tablet 20 mEq, 20 mEq, oral, BID, Eleonora Duarte NP, 20 mEq at 05/13/212013 ??? QUEtiapine (SEROquel) tablet 25 mg, 25 mg, oral, Daily, Varsha Crowder NP, 25 mg at 05/13/21936 ??? QUEtiapine (SEROquel) tablet 50 mg, 50 mg, oral, Nightly, Varsha Crowder NP, 50 mg at 05/13/212013 ??? sodium chloride 0.9% flush 0.5-20 mL, 0.5-20 mL, intra-catheter, Q8H [facility], Rhina Granados MD, 10 mL at 05/13/212027 Lab/Radiology/Diagnostic Review: Recent Results (from the past 24 hour(s)) POCT glucose Collection Time: 05/12/21 10:04 PM Result Value Ref Range Glucose, POC 188 70 - 199 mg/dL POCT glucose Collection Time: 05/13/21 1:40 AM Result Value Ref Range Glucose, POC 258 (H) 70 - 199 mg/dL CBC without differential Collection Time: 05/13/21 6:12 AM Result Value Ref Range WBC 9.8 3.8 - 9.9 K/cumm Hgb 9.7 (L) 13.0 - 17.5 g/dL Hct 29.8 (L) 38.9 - 50.3 % Plt 253 150 - 400 K/cumm MPV 11.8 9.1 - 12.3 fL RBC 3.26 (L) 4.30 - 5.80 M/cumm MCV 91.4 81.3 - 96.4 fL MCH 29.8 27.1 - 33.3 pg MCHC 32.6 32.3 - 35.7 g/dL RDW CV 13.2 11.1 - 14.9 % RDW SD 43.4 35.7 - 48.1 fL NRBC abs 0.00 0.00 - 0.01 K/cumm Basic metabolic panel Collection Time: 05/13/21 6:13 AM Result Value Ref Range Sodium 127 (L) 135 - 145 mmol/L Potassium, pl 3.5 3.3 - 4.9 mmol/L Chloride 94 (L) 97 - 110 mmol/L CO2 22 22 - 32 mmol/L Anion gap 11 2 - 15 mmol/L BUN 27 (H) 8 - 25 mg/dL Creatinine 0.76 (L) 0.80 - 1.30 mg/dL Glucose 249 (H) 70 - 199 mg/dL Calcium 8.1 (L) 8.5 - 10.3 mg/dL Phosphorus Collection Time: 05/13/21 6:13 AM Result Value Ref Range Phosphorus, pl 2.7 2.3 - 4.5 mg/dL Magnesium Collection Time: 05/13/21 6:13 AM Result Value Ref Range Magnesium 2.1 1.4 - 2.5 mg/dL eGFR Collection Time: 05/13/21 6:13 AM Result Value Ref Range eGFR 100 mL/min/1.73 m2 POCT glucose Collection Time: 05/13/21 8:16 AM Result Value Ref Range Glucose, POC 210 (H) 70 - 199 mg/dL POCT glucose Collection Time: 05/13/21 5:24 PM Result Value Ref Range Glucose, POC 194 70 - 199 mg/dL POCT glucose Collection Time: 05/13/21 8:13 PM Result Value Ref Range Glucose, POC 174 70 - 199 mg/dL XR Chest 1 View - Portable - in AM Result Date: 05/11/2021 Narrative: EXAMINATION: XR CHEST 1 VIEW HISTORY: The patient is a 60-year-old male who has had cardiac surgery. Comparison made with the previous study dated 05/10/2021. TECHNIQUE: AP portable view of the chest. FINDINGS: Lungs clear. Heart not enlarged. Aortic atherosclerosis. No failure. The right IJ [place] catheter has been retracted with its tip in the distal superior vena cava. Impression: IMPRESSION: No failure. Electronically signed by: Elvira Blackman M.D. XR Chest 1 View - Portable - in AM Result Date: 05/10/2021 Narrative: EXAMINATION: XR CHEST 1 VIEW DATE: 05/10/2021 2:40 AM COMPARISON: 05/09/2021 HISTORY: 60-year-old man cardiac surgery follow-up FINDINGS:Compared with study the previous day, significant improvement. There is cardiomegaly with postsurgical changes with continued and decreasing failure. Bibasilar atelectasis with left pleural fluid decreasing. No pneumothorax. [place] catheter remainsin place Impression: Decreasing failure, atelectasis and left effusion. Electronically signed by: Deandre Lomeli M.D. XR Chest 1 View - Portable - in AM Result Date: 05/09/2021 Narrative: EXAMINATION: XR CHEST 1 VIEW DATE: 05/09/2021 4:10 AM HISTORY: 60-year-old man cardiac surgery follow-up FINDINGS:Compared with study the previous day, significant improvement. There is cardiomegaly with postsurgical changes with continued but decreasing failure. Bibasilar atelectasis with left pleural fluid decreasing. No pneumothorax. [place] catheter remains in place Impression: Decreasing failure, atelectasis and left effusion. Electronically signed by: Deandre Lomeli M.D. XR Chest 1 View - Portable - in AM Result Date: 05/08/2021 Narrative: EXAMINATION: XR CHEST 1 VIEW DATE: 05/08/2021 4:15 AM HISTORY: 60-year-old man cardiac surgery follow-up FINDINGS:Compared with study the previous day, significant improvement. There is cardiomegaly with postsurgical changes with continued but decreasing failure. Bibasilar atelectasis with left pleural fluid. No pneumothorax. [place] catheter remains in place Impression: Decreasing failure. No pneumothorax. Electronically signed by: Deacon Cummings M.D. XR Chest 1 View - Portable - in AM Result Date: 05/07/2021 Narrative: EXAMINATION: XR CHEST 1 VIEW DATE: 05/07/2021 3:55 AM HISTORY: 60-year-old man follow-upcardiac surgery FINDINGS:Compared with study of the previous day, postsurgical changes in the heartand mediastinum with cardiomegaly are stable. [place] catheter remains in place. Left thoracostomy tube remains in place. No pneumothorax. Pulmonary vascular congestion with interstitial lung disease remain prominent. Impression: Persistent prominent interstitial lung disease with failure. Electronically signed by: Deacon Cummings M.D. XR Chest 1 View - Portable - in AM Result Date: 05/06/2021 Narrative: EXAMINATION: XR CHEST 1 VIEW DATE: 05/06/2021 4:05 AM INDICATION: Cardiac surgery. COMPARISON: 05/05/2021. FINDINGS: No pneumothorax or pleural effusion. Similar-appearing pulmonary vascular congestion and interstitial opacities most notable in the bilateral upper lobes consistent with pulmonary edema. Pulmonary catheter catheter, left thoracostomy tube, and mediastinal drain are appropriately position. Intra-aortic balloon pump is appropriately positioned. Interval removal of endotracheal tube. Impression: 1. Interval removal of endotracheal tube. Remaining tubes and lines are appropriately positioned. 2. Similar-appearing cardiomegaly, pulmonary vascular congestion, and prominent bilateralinterstitial markings suggestive of interstitial pulmonary edema. Electronically signed by: Richard Zhao II, D.O. XR Chest 1 View - Portable - in AM Result Date: 05/05/2021 Narrative: EXAMINATION: XR CHEST 1 VIEW DATE: 05/05/2021 4:15 AM HISTORY: 60-year-old man cardiac surgery follow-up FINDINGS:Compared with the study of the prior day, tubes and catheters remain satisfactorily positioned. Worsening pulmonary vascular congestive changes are seen. Cardiomegaly with postsurgical changes stable. No pneumothorax. Impression: Increasing failure. Electronically signed by: Deacon Cummings M.D. XR Chest 1 Vw Portable Result Date: 05/05/2021 Narrative: EXAMINATION: XR CHEST 1 VIEW DATE: 05/04/2021 8:40 PM HISTORY: 60-year-old man coronary artery bypass follow-up FINDINGS:Compared with the study of earlier the same day, postsurgical changes now evident within the heart and mediastinum with cardiomegaly. Interval placement of endotracheal tube, nasogastric tube, [place] catheter, left thoracostomy tube and mediastinal drain all in satisfactory position. No pneumothorax. Interstitial lung disease with mild pulmonary vascular congestive changes. Aortic balloon pump is no longer seen. Impression: Tube placements with postsurgical changes with cardiomegaly with interstitial lung disease and mild failure with no pneumothorax. Electronically signed by: Deacon Cummings M.D. XR Chest 1 Vw Portable Result Date: 05/04/2021 Narrative: EXAMINATION: XR CHEST 1 VIEW DATE: 05/04/2021 9:05 AM HISTORY: Coronary artery disease FINDINGS:Comparison is made with study of 2 days earlier. Cardiomegaly, COPD with interstitial lung disease stable. Mild failure. Aortic balloon pump stable in position at the proximal descending aorta. No pneumothorax. No new infiltrates. Impression: Stable appearance. COPD cardiomegaly, with mild failure suspected. Electronically signed by: Deacon Cummings M.D. XR Chest 1 Vw Portable Result Date: 05/02/2021 Narrative: EXAMINATION: XR CHEST 1 VIEW DATE: 05/02/2021 5:15 AM INDICATION: Intra-aortic balloon pump. COMPARISON: 05/01/2021. FINDINGS: Appropriately positioned intra-aortic balloon pump appears unchanged. No pneumothorax or pleural effusion. Mixed reticular and alveolar opacities demonstrated inall lung lobes appear most significant in the upper lobes and perihilar regions, unchanged. Impression: 1. Appropriately positioned intra-aortic balloon pump. 2. Similar mixed reticular and alveolar opacities most notable in the bilateral upper lobes and perihilar region. Electronically signed by: Richard Lopez II, D.O. XR Chest 1 Vw Portable Result Date: 05/02/2021 Narrative: EXAMINATION: XR CHEST 1 VIEW DATE: 05/01/2021 8:15 PM INDICATION: Hypoxia. COMPARISON: None. FINDINGS: No pneumothorax. No pleural effusion. Mixed reticular and alveolar opacities are demonstrated in all lung lobes but demonstrate an upper lobe and perihilar predominance. Findings may represent pulmonary edema on background of centrilobular emphysematous changes. Underlying infectious process not entirely excludable. Cardiac mediastinal silhouette is stable in appearance. No acute osseous abnormality. Impression: Mixed reticular and alveolar opacities are demonstrated in all lung lobes but demonstrate an upper lobe and perihilar predominance. Findings may represent pulmonary edema on background ofcentrilobular emphysematous changes. Electronically signed by: Richard Lopez II, D.O. Transthoracic Echo (TTE) Limited Result Date: 05/07/2021 Narrative: [place] [id number] Limited Echocardiogram Report Patient Name: DEEPAK ALVARADO : 1960 StudyDate: 05/07/2021 12:16:52 PM Gender: M Tech: SR Location: [place] [address] Ref.Provider: RHINA GRANADOS Height(Cm): 175 BSA: 2.1 Weight(Kg): 91 Heart Rate: 82 BP: 127/44 Quality: Good Order Provider: Dr. Sutton Procedures: Echocardiographic Report: Limited transthoracic echocardiogram with 2D and M-Mode. Measurements: 2D/M Mode Measurement Value Normal Range LVIDd 2D 3.43 [ 4.20 -5.90 ] cm LVIDs 2D 2.59 [ 2.30 - 3.90 ] cm LVPWd 2D 1.01 [ 0.60 - 1.00 ] cm IVSd 2D 0.71 [ 0.60 - 0.90 ] cm Findings: Left Ventricle: Reduced left ventricular cavity size. Mild global left ventricular systolic dysfunction. Ejection fraction is measured at 42 %. These segments of the LV are hypokinetic: apical anterior segment. Pericardium: Trivial pericardial effusion. No echocardiographic evidence to suggest pericardial tamponade. Conclusions: Reduced left ventricular cavity size. Mild global left ventricular systolic dysfunction. Ejection fraction is measured at 42 %. These segments of the LV are hypokinetic: apical anterior segment. Trivial pericardial effusion. No echocardiographic evidence to suggest pericardial tamponade. Electronically Signed By: Gianni Francois MD, [facility] :54:09 STAFF FORESTER Transthoracic Echo Complete W Doppler/CF Result Date: 05/02/2021 Narrative: [address] [address] Echocardiogram Report Patient Name: DEEPAK ALVARADO W : 1960 Study Date: 05/02/2021 8:50:02 AM Gender: M Tech: Location: [id number] Ref Provider: NALINI CLAYTONHeight(Cm): 175 BSA: 2.11 Weight(Kg): 92 Heart Rate: 89 BP: 102/52 Quality: Good Order Provider: NALINI CLAYTON PROCEDURES: Echocardiographic Report: Transthoracic echocardiogram with complete 2D, M-Mode, and color Doppler examination. INDICATIONS: Free Text. Measurements: 2D/M Mode DopplerMeasurement Value Normal Range Measurement Value Normal Range EF Teich 2D 30.0 [ 55.0 - 70.0 ] percent CHRISTINA Vmax 2.04 [ 2.00 - 4.00 ] cm2 EF Mod 4C 42.2 [ 55.0 - 70.0 ] percent AV Mean PG 5 [ 2 - 4 ]mmHg LVIDd 2D 4.54 [ 4.20 - 5.90 ] cm AV Peak Ramesh 1.54 [ 1.00 - 1.70 ] m/s LVIDs 2D 3.91 [ 2.30 - 3.90 ] cm AV VTI 26.93 cm LVPWd 2D 0.92 [ 0.60 - 1.00 ] cm LVOT Diam 2.20 [ 1.70 - 2.10 ] cm IVSd 2D 0.76 [ 0.60 - 0.90 ] cm LVOT Peak Ramesh 0.83 [ 0.70 - 1.10 ] m/s LA Dimension MM 5.08 [ 3.00 - 4.00 ] cm LVOT VTI 13.82 [ 20.00 - 30.00 ] cm AoR Diam MM 4.12 [ 2.60 - 3.70 ] cm MV E Peak Ramesh 0.85 [ 0.60 - 1.30 ] m/s LA Volume Index 20.83 [ 16.00 - 28.00 ] cc/m2 MV A Peak Ramesh 1.14 [ 1.00 - 1.20 ] m/s ACS MM 1.91 [ 1.50 - 2.60 ] cm MV Mean PG 1 [ <= 5 ] mmHg MV PHT 43 [ 20 - 100 ] msec MVA 2.20 MV Decel Time 137 [ 104 - 258 ] msec PV Peak Ramesh 1.10 [ 0.40 - 0.80 ] m/s TR Peak Ramesh 1.32 [ 1.00 - 2.80 ] m/s TR Peak PG 7 mmHg RVSP 16.93 [ 10.00 - 36.00 ] mmHg E' 0.06 E/E' 14.00 Measurement Value Normal Range Measurement Value Normal Range 2D/M Mode Doppler - FINDINGS: Atrial Septum: Normal atrial septum. Left Ventricle: Normal left ventricular size. Left ventricle not well visualized. There is severe hypokinesis of the mid anteroseptal, anterior, and apical mancilla. Normal left ventricularwall thickness. Impaired diastolic relaxation Grade I. Ejection fraction is visually estimated at 40 %. Left Atrium: The left atrium is normal in size. Right Ventricle: Normal right ventricular size.Normal right ventricular systolic function. Right Atrium: The right atrium is normal in size. Aortic Valve: Normal structure of the aortic valve. No evidence of hemodynamically significant aortic stenosis by Doppler. No aortic regurgitation. Mitral Valve: Normal structure of the mitral valve. Trivial regurgitation of the mitral valve. Pulmonic Valve: Pulmonic valve not well visualized. Trivial reg urgitation in the pulmonic valve. Tricuspid Valve: Normal structure of the tricuspid valve. Trivialregurgitation in the tricuspid valve. Pericardium: Normal pericardium with no significant pericardial effusion. Aorta: Normal aortic root. IVC: Normal size and normal respiratory collapse consistent with normal right atrial pressure (<5 mmHg). CONCLUSIONS: Technically difficult study with limited views. Normal left ventricular size. Left ventricle not well visualized. There is severe hypokinesis of the mid anteroseptal, anterior, and apical mancilla. Normal left ventricular wall thickness. Impaired diastolic relaxation Grade I. Ejection fraction is visually estimated at 40 %. Normal right ventricular size. Normal right ventricular systolic function. Normal structure of the mitral valve. Trivial regurgitation of the mitral valve. Normal structure of the tricuspid valve. Trivial regurgitation in the tricuspid valve. Electronically Signed By: Rylee Brito DO, FACJustyna, [place], FAISAL 2021-05-02 14:07:25 STAFF FORESTER CC: CC: CC: ASSESSMENT/PLAN Hyponatremia from SIADH and possibly from zaroxylyn use. Work up for hyponatremia ongoing. PO FR. DC Zaroxylyn. No normotonic fluids yet. Urine lytes and osm. If in clinical fluid overload, may use tolvaptan. Renal fn is normal. Na worse ans with hx of fluid overload, will start loop diuresis. ?? Recent bladder tumor removal with hematuria. ?? -??Urology is following.H/H stable -Cysto vs conservative tx. ?? Hypokalemia from diuresis. Replace PRN. ?? 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 ?? Syncopal episode -(+) orthostasis -receiving albumin -IV lasix was discontinued. ??There is a 1x order for zaroxolyn 10mg this am- recommend holding fornow. ??D/w RN ?? Coronary artery disease -s/p CABG post STEMI -??underwent four-vessel bypass ??MAE to the LAD, sequential saphenous vein graft to diagonal and obtuse marginal and a vein graft to the PDA. -s/p??low dose dobutamine -paced rhythm -??IV??diuretics??discontinued d/t syncopal episode today (see above) ?? Moderate LV dysfunction -s/p IV??lasix??and??low dose??dobutamine -Beta blockers, ??[place] once off dobutamine-would hold off adding given syncopal episode this am -repeat ECHO 05/07 EF 42% (see above) ?Nonsustained ventricular tachycardia -no recurrence of VT -K 3.7, Mg??2.0. ??Supplement to keep K >/= 4.0, Mg >/= 2.0 ?Diabetes mellitus -?on lantus and SSI ?? COPD: ?? -on?O2 NC??4L (dried blood to L nare humidified o2 ordered) ?? Dyslipidemia -?Continue atorvastatin. ?PAD -?Stable ? Anemia -Hb??11.4 (10.5)??(8.6) -monitor ?? I can be reached at [phone] with any concerns. Thank you Rhina Granados MD for the consult. Yves Weinberg MD [employer] [phone] F FORESTER * Anibal Lara MD - 05/13/2021 1:43 PM CST Hospitalist Progress Note Name: Deepak Alvarado Admission Date: 05/01/2021 Today's Date: 05/13/2021 Subjective: Pt seen and examined while in the ICU, Clinical course: Overall pt condition has improved. Pt will be transferred to 9th floor, had Osorio with blood urine and still on Dobutamine gtt 05/09: pt is on RA, still on Dobutamine gtt today 05/10: off Dobutamine gtt, new events noted ( had a near syncope/syncope episode at 2 am while trying to go the bathroom) 05/11: worsening hematuria noted, on 5L per NC 05/12: little confused this am, no RA 05/13: pt had removed he atrial and ventricular pacing wires, to have CT A/P Objective: Vitals: 05/13/21 0417 05/13/21 0802 05/13/21 1058 05/13/21 1251 BP: 136/65 102/60 96/63 102/61 BP Location: Right arm Right arm Right arm Right arm Patient Position: Lying Lying Lying Pulse: 71 86 91 91 Resp: 19 18 18 18 Temp: 36.9 ??C (98.5 ??F) 36.7 ??C (98.1 ??F) 36.7 ??C (98 ??F) 36.4 ??C (97.5 ??F) TempSrc: Oral Oral Oral Oral SpO2: 94% 96% 97% 99% Weight: Height: Wt Readings from Last 3 Encounters: 05/09/21 79.8 kg (176 lb) 08/27/13 114.3 kg (252 lb) 10/19/12 111.6 kg (246 lb) I/O last 3 completed shifts: In: 240 [P.O.:240] Out: 1999 [Urine:1999] No intake/output data recorded. Scheduled Meds Current Facility-Administered Medications Medication Dose Route Frequency Provider Last Rate Last Admin ??? acetaminophen (TYLENOL) tablet 650 mg 650 mg oral Q6H PRN Eleonora Duarte NP 650 mg at 05/12/21 2223 ? ? al & mag hydroxide pocqotbpzzk-tpgvuyoapuuiiki-tdyfzlwom-nystatin (MAGIC MOUTHWASH) suspension 1-1-1-1 20 mL swish & spit Q4H PRN Tiana Spence NP 20 mL at 05/12/21 1457 ??? albuterol 2.5 mg /3 mL (0.083 %) nebulizer solution 2.5 mg 2.5 mg nebulization Q4H PRN (RT) Ralf Tomlinson MD ??? aspirin enteric coated tablet 81 mg 81 mg oral Daily Varsha Crowder NP 81 mg at 05/13/21 0937 ??? atorvastatin (LIPITOR) tablet 80 mg 80 mg oral Nightly Rhina Granados MD 80 mg at 05/12/214 ??? [Held by Provider] clopidogreL (PLAVIX) tablet 75 mg 75 mg oral Daily Rhina Granados MD 75 mg at 05/10/21 0854 ??? dextrose oral liquid liquid 15 g 15 g oral Q15 Min PRN Anibal Lara MD Or ??? dextrose (D10W) 10% bolus 250 mL 250 mL intravenous Q15 Min PRN Anibal Mon MD ??? docusate sodium (COLACE) capsule 100 mg 100 mg oral BID Rhina Granados MD 100 mg at 05/13/21 0936 ??? [Held by Provider] enoxaparin (LOVENOX) syringe 40 mg 40 mg subcutaneous Daily-2100 Rhina Granados MD 40 mg at 05/10/212140 ??? glucagon injection 1 mg 1 mg intramuscular Q30 Min PRN Anibal Lara MD ??? guaiFENesin ER (MUCINEX) extended release tablet 600 mg 600 mg oral BID Tiana Spence NP 600 mg at 05/13/2136 ??? haloperidol (HALDOL) injection 2 mg 2 mg intramuscular Q8H PRN Varsha Crowder NP ??? insulin glargine (LANTUS, SEMGLEE) 100 unit/mL injection 20 Units 0.25 Units/kg subcutaneous Nightly Anibal Lara MD 20 Units at 05/12/212 ??? insulin lispro (HumaLOG, ADMELOG) 100 unit/mL injection 0-10 Units 0-10 Units subcutaneous TID with meals Anibal Lara MD 4 Units at 05/13/2138 ??? insulin lispro (HumaLOG, ADMELOG) 100 unit/mL injection 0-5 Units 0-5 Units subcutaneous Nightly Anibal Lara MD 1 Units at 05/12/212209 ??? insulin lispro (HumaLOG, ADMELOG) 100 unit/mL injection 7 Units 0.083 Units/kg subcutaneous TIDwith meals Anibal Lara MD 7 Units at 05/12/21 1744 ??? metoprolol XL (TOPROL-XL) extended release tablet 12.5 mg 12.5 mg oral Daily Lester Batista MD12.5 mg at 05/13/21936 ??? ondansetron (ZOFRAN) injection 4 mg 4 mg intravenous Q6H PRN Rhina Granados MD ??? pantoprazole DR (PROTONIX) extended release tablet 40 mg 40 mg oral Daily Rhina Granados MD40 mg at 05/13/21935 ??? piperacillin-tazobactam (ZOSYN) 3.375 g in sodium chloride 0.9% 100 mL IVPB 3.375 g [id number] LEAH Eleonora Duarte NP 200 mL/hr at 05/13/21606 3.375 g at 05/13/21606 ??? polyethylene glycol (MIRALAX) packet 17 g 17 g oral BID Rhina Granados MD 17 g at 05/13/21935 ??? potassium chloride ER (KLOR-CON) extended release tablet 20 mEq 20 mEq oral BID Eleonora Duarte NP 20 mEq at 05/13/21935 ??? QUEtiapine (SEROquel) tablet 25 mg 25 mg oral Daily Varsha Crowder NP 25 mg at 05/13/21936 ??? QUEtiapine (SEROquel) tablet 50 mg 50 mg oral Nightly Varsha Crowder NP 50 mg at ??? sodium chloride 0.9% flush 0.5-20 mL 0.5-20 mL intra-catheter Q8H [facility] Rhina Granados MD 10 mL at 11/24/21 0607 ??? acetaminophen ? ? al & mag hydroxide sfpulenjnak-dtpfhlcurziqeky-nlksbqxvl-nystatin ??? albuterol ??? dextrose OR dextrose ??? glucagon ??? haloperidol ??? ondansetron Physical Exam: General: alert, cooperative, no distress, appears stated age HEENT: Head:normacephalic, Eyes: Perrla, EOMI bilaterally, nasal and oral mucosal pink and moist Heart: normal rate, regular rhythm, normal S1, S2, no murmurs, rubs, clicks or gallops Lungs: clear to auscultation, no wheezes or rales and unlabored breathing Abdomen: soft, nontender, nondistended, no masses or organomegaly Extremities: peripheral pulses normal, no pedal edema, no clubbing or cyanosis Neuro: alert, oriented x 3, no defects noted in general exam. Lab Data Laboratory review: Chemistry CMP: Lab Results Component Value Date BUNSER 27 (H) 05/13/2021 CALCIUM 8.1 (L) 05/13/2021 CO2 22 05/13/2021 CHLORIDE 94 (L) 05/13/2021 CREATININE 0.76 (L) 05/13/2021 GLUCOSE 210 (H) 05/13/2021 GLUCOSE 249 (H) 05/13/2021 POTASSIUM 3.5 05/13/2021 SODIUM 127 (L) 05/13/2021 , CBC: Lab Results Component Value Date WBC 9.8 05/13/2021 RBC 3.26 (L) 05/13/2021 HGB 9.7 (L) 05/13/2021 HCT 29.8 (L) 05/13/2021 MCV 91.4 05/13/2021 MCH 29.8 05/13/2021 MCHC 32.6 05/13/2021 RDWCV 13.2 05/13/2021 RDWSD 43.4 05/13/2021 MPV 11.8 05/13/2021 NRBCABS 0.00 05/13/2021 , Coags: Lab Results Component Value Date PT 14.0 (H) 05/12/2021 APTT 29 05/12/2021 INR 1.3 (H) 05/12/2021 , Lipids: No results found for: CHOL, CHLPL, HDL, LDLCALC, TRIG, CHOLHDL, Cardiac Enzymes: No results found for: CKTOTAL, CKMB, CKMBINDEX, TROPONINT and POC Glucose: Lab Results Component Value Date GLUCOSE 210 (H) 05/13/2021 GLUCOSE 249 (H) 05/13/2021 Home Medications have been reviewed and updated on pt's list Assessment and Plan Near syncope/Syncope episode, probable vaso vagal, monitor Acute anterior STEMI with CAD , s/p PCI to LAD -s/p CABG x 4 05/04 given re thrombosis of existing stents -s/p IABP, removed 05/06 - off Dobutamine gtt today -pt is on ASA, statins , added BBs , Plavix on hold due to hematuria ?? Post CABG cardiogenic shock - s/p fluid resuscitation , Levophed - off Dobutamine gtt ?? Ventricular fibrillation - briefly on 05/03 - treated with Amiodarone ; now off Dobutamine ?? Gross Hematuria - in a pt with hx of cystoscopy, -clot evacuation and transurethral resection of bladder tumor at [facility] -s/p 20??German three way catheter, urine still bloody -holding Plavix and Lovenox -urology follows ?? Acute resp failure - self ext 05/05/21 -Lung infiltrates - pulm vascular congestion versus pneumonia -off Lasix due to hyponatremia, changed to Zosyn due to worsening Leukocytosis -today on 5L per NM -pulmonology follows ?? Type 2 diabetes.??- transitioned into SSI protocol And Lantus ?? Acute blood loss anemia ; -s/p PRBC transfusions in ICU -Hb today 11.1 monitor Mild hyponatremia, holding Lasix ?? Hx of Tobacco use. ?? Vitamin-D deficiency.- stable DVT prophylaxis :holding Lovenox due to worsening hematuria Pt will need continued inpatient management for the above medical issues. Code status: full Anibal Hughes MD [facility] Hospitalist 05/13/2021 1:43 PM F FORESTER * Braulio Ortega MD - 05/13/2021 12:32 PM CST Urology Progress Note Day of Surgery Subjective: Patient with history of gross hematuria currently has no symptoms. Objective: Osorio tea colored urine Vitals: Vitals: 05/12/21 2300 05/13/21 0417 05/13/21 0802 05/13/21 1058 BP: 103/67 136/65 102/60 96/63 BP Location: Right arm Right arm Right arm Right arm Patient Position: Lying Lying Lying Lying Pulse: 71 86 91 Resp: Temp: 36.3 ??C (97.4 ??F) 36.9 ??C (98.5 ??F) 36.7 ??C (98.1 ??F) 36.7 ??C (98 ??F) TempSrc: Oral Oral Oral Oral SpO2: 95% 94% 96% 97% Weight: Height: I/O last 2 completed shifts: In: 240 [P.O.:240] Out: 1999 [Urine:1999] Physical exam: Physical Exam Not in distress Abdomen: soft, bladder not palpable. Osorio - clear urine, tea colored. Lab/Radiology/Diagnostic Review: Reviewed. Recent Results (from the past 24 hour(s)) POCT glucose Collection Time: 05/12/21 5:43 PM Result Value Ref Range Glucose, POC 171 70 - 199 mg/dL POCT glucose Collection Time: 05/12/21 10:04 PM Result Value Ref Range Glucose, POC 188 70 - 199 mg/dL POCT glucose Collection Time: 05/13/21 1:40 AM Result Value Ref Range Glucose, POC 258 (H) 70 - 199 mg/dL CBC without differential Collection Time: 05/13/21 6:12 AM Result Value Ref Range WBC 9.8 3.8 - 9.9 K/cumm Hgb 9.7 (L) 13.0 - 17.5 g/dL Hct 29.8 (L) 38.9 - 50.3 % Plt 253 150 - 400 K/cumm MPV 11.8 9.1 - 12.3 fL RBC 3.26 (L) 4.30 - 5.80 M/cumm MCV 91.4 81.3 - 96.4 fL MCH 29.8 27.1 - 33.3 pg MCHC 32.6 32.3 - 35.7 g/dL RDW CV 13.2 11.1 - 14.9 % RDW SD 43.4 35.7 - 48.1 fL NRBC abs 0.00 0.00 - 0.01 K/cumm Basic metabolic panel Collection Time: 05/13/21 6:13 AM Result Value Ref Range Sodium 127 (L) 135 - 145 mmol/L Potassium, pl 3.5 3.3 - 4.9 mmol/L Chloride 94 (L) 97 - 110 mmol/L CO2 22 22 - 32 mmol/L Anion gap 11 2 - 15 mmol/L BUN 27 (H) 8 - 25 mg/dL Creatinine 0.76 (L) 0.80 - 1.30 mg/dL Glucose 249 (H) 70 - 199 mg/dL Calcium 8.1 (L) 8.5 - 10.3 mg/dL Phosphorus Collection Time: 05/13/21 6:13 AM Result Value Ref Range Phosphorus, pl 2.7 2.3 - 4.5 mg/dL Magnesium Collection Time: 05/13/21 6:13 AM Result Value Ref Range Magnesium 2.1 1.4 - 2.5 mg/dL eGFR Collection Time: 05/13/21 6:13 AM Result Value Ref Range eGFR 100 mL/min/1.73 m2 POCT glucose Collection Time: 05/13/21 8:16 AM Result Value Ref Range Glucose, POC 210 (H) 70 - 199 mg/dL Current Facility-Administered Medications Medication Dose Route Frequency Provider Last Rate Last Admin ??? [AUG Hold] acetaminophen (TYLENOL) tablet 650 mg 650 mg oral Q6H PRN Eleonora Duarte NP 650 mg at 05/12/21 2223 ? ? [AUG Hold] al & mag hydroxide exofrmuqbyg-aiwkuubeciktymb-swfqrfswh-nystatin (MAGIC MOUTHWASH) suspension 1-1-1-1 20 mL swish & spit Q4H PRN Tiana Spence NP 20 mL at 05/12/21 1457 ??? [AUG Hold] albuterol 2.5 mg /3 mL (0.083 %) nebulizer solution 2.5 mg 2.5 mg nebulization Q4H PRN (RT) Ralf Tomlinson MD ??? [AUG Hold] aspirin enteric coated tablet 81 mg 81 mg oral Daily Varsha Crowder NP 81 mg at 05/13/21 0937 ??? [MAR Hold] atorvastatin (LIPITOR) tablet 80 mg 80 mg oral Nightly Rhina Granados MD 80 mg at 05/12/21 2204 ??? [Held by Provider] clopidogreL (PLAVIX) tablet 75 mg 75 mg oral Daily Rhina Granados MD 75 mg at 05/10/21 0854 ??? [MAR Hold] dextrose oral liquid liquid 15 g 15 g oral Q15 Min PRN Anibal Mon MD Or ??? [MAR Hold] dextrose (D10W) 10% bolus 250 mL 250 mL intravenous Q15 Min PRN Anibal Lara MD ??? [MAR Hold] docusate sodium (COLACE) capsule 100 mg 100 mg oral BID Rhina Granados MD 100 mgat 05/13/21 0936 ??? [Held by Provider] enoxaparin (LOVENOX) syringe 40 mg 40 mg subcutaneous Daily-2100 Rhina Granados MD 40 mg at 05/10/21 2141 ??? [AUG Hold] glucagon injection 1 mg 1 mg intramuscular Q30 Min PRN Anibal Mon MD ??? [AUG Hold] guaiFENesin ER (MUCINEX) extended release tablet 600 mg 600 mg oral BID Tiana Spence NP 600 mg at 05/13/21 0936 ??? [AUG Hold] haloperidol (HALDOL) injection 2 mg 2 mg intramuscular Q8H PRN Varsha Crowder NP ??? [MAR Hold] insulin glargine (LANTUS, SEMGLEE) 100 unit/mL injection 20 Units 0.25 Units/kg subcutaneous Nightly Anibal Lara MD 20 Units at 05/12/21 2222 ??? [AUG Hold] insulin lispro (HumaLOG, ADMELOG) 100 unit/mL injection 0-10 Units 0-10 Units subcutaneous TID with meals Anibal Lara MD 4 Units at 05/13/21 0938 ??? [MAR Hold] insulin lispro (HumaLOG, ADMELOG) 100 unit/mL injection 0-5 Units 0-5 Units subcutaneous Nightly Anibal Lara MD 1 Units at 05/12/21 2210 ??? [AUG Hold] insulin lispro (HumaLOG, ADMELOG) 100 unit/mL injection 7 Units 0.083 Units/kg subcutaneous TID with meals Anibal Lara MD 7 Units at 05/12/21 1744 ??? [AUG Hold] metoprolol XL (TOPROL-XL) extended release tablet 12.5 mg 12.5 mg oral Daily Lester Batista MD 12.5 mg at 05/13/2137 ??? [AUG Hold] ondansetron (ZOFRAN) injection 4 mg 4 mg intravenous Q6H PRN Rhina Granados MD ??? [AUG Hold] pantoprazole DR (PROTONIX) extended release tablet 40 mg 40 mg oral Daily Rhina Granados MD 40 mg at 05/13/2136 ??? [AUG Hold] piperacillin-tazobactam (ZOSYN) 3.375 g in sodium chloride 0.9% 100 mL IVPB 3.375 g intravenous Q6H [facility] Eleonora Duarte NP 200 mL/hr at 05/13/21 06 3.375 g at 05/13/21 06 ??? [AUG Hold] polyethylene glycol (MIRALAX) packet 17 g 17 g oral BID Rhina Granados MD 17 g at 05/13/2136 ??? [AUG Hold] potassium chloride ER (KLOR-CON) extended release tablet 20 mEq 20 mEq oral BID Eleonora Duarte NP 20 mEq at 05/13/2136 ??? [MAR Hold] QUEtiapine (SEROquel) tablet 25 mg 25 mg oral Daily Varsha Crowder NP 25 mg at107/13/2037 ??? [MAR Hold] QUEtiapine (SEROquel) tablet 50 mg 50 mg oral Nightly Varsha Crowder NP 50 mg at 05/12/215 ??? [AUG Hold] sodium chloride 0.9% flush 0.5-20 mL 0.5-20 mL intra-catheter Q8H [facility] NabilA. Granados MD 10 mL at 05/13/21 06 ??? sodium chloride 0.9% flush 0.5-20 mL 0.5-20 mL intra-catheter PRN Robby Suárez MD Assessment and Plan: Principal Problem: ST elevation myocardial infarction (STEMI) (HCC) ?? History of gross hematuria. No active bleeding currently. Osorio tea colored urine. ?? For CT scan abdomen and pelvis to see for any clots in the bladder. If no clots, osorio can be removed. Plan not for cystoscopy at this time, pending CT scan. Braulio Ortega MD Urology Division [facility] Office [phone] 05/13/2021 12:33 PM F FORESTER * Ellen Shore PTA - 05/13/2021 11:48 AM CST Physical Therapy Unavailable, gone from room for procedure. Ellen Shore PTA 05/13/21 11:49 AM F FORESTER * Shruthi Hu COTA - 05/13/2021 11:14 AM CST Occupational Therapy NO THERAPY OR OT CHARGES GIVEN THIS MORNING D/T PATIENT JUST RECENTLY TAKEN TO OPERATING ROOM. THERAPIST WILL ADDRESS SESSION LATER IN AFTERNOON IF TIME PERMITTING AND/OR PER AVAILABILITY/ APPROPRIATENESS. CAITIE Tinsley 05/13/21 11:15 AM F FORESTER F FORESTER * Varsha Crowder NP - 05/13/2021 10:13 AM CST Atrial and ventricular pacing wires removed without difficulty. VSS. Telemetry: NSR. No distress noted. Patient instructed to remain on bedrest for one hour and notify the nurse if shortness of breath or chest pain develops. Varsha Crowder MSN, RN, AGPCNP-C Cardiothoracic Surgery [facility] Office: F FORESTER * Varsha Crowder NP - 05/13/2021 10:13 AM CST Cardiothoracic Surgery Progress Note [facility] 1960 [facility] DAY#12 9 Days Post-Op s/p: Procedures: * Coronary artery bypass grafting x4, placement of left QUINN to the LAD, saphenous vein graft to thediagonal artery and obtuse marginal in a sequential fashion, saphenous vein graft to the PDA- [place] Subjective: Patient resting in bed on 4L NC. Has pain at osorio site, denies chest pain or SOB. Plans for cystoscopy today per urology OBJECTIVE: Vitals: Temp: [36.3 ??C (97.4 ??F)-36.9 ??C (98.5 ??F)] 36.7 ??C (98 ??F) Pulse: [61-106] 91 BP: (96-136)/(50-67) 96/63 Resp: [18-22] 18 SpO2: [94 %-97 %] 97 % Wt Readings from Last 3 Encounters: 05/09/21 79.8 kg (176 lb) 08/27/13 114.3 kg (252 lb) 10/19/12 111.6 kg (246 lb) I/O last 2 completed shifts: In: 240 [P.O.:240] Out: 1999 [Urine:2000] Physical Exam HENT: Mouth/Throat: Mouth: Mucous membranes are moist. Eyes: Pupils: Pupils are equal, round, and reactive to light. Cardiovascular: Rate and Rhythm: Normal rate and regular rhythm. Pulses: Normal pulses. Heart sounds: Normal heart sounds. Comments: SR Pulmonary: Effort: Pulmonary effort is normal. Breath sounds: Normal breath sounds. Genitourinary: Comments: Osorio- dark blood tinged urine Musculoskeletal: General: Normal range of motion. Right lower leg: No edema. Left lower leg: No edema. Skin: Comments: Sternum covered with silver Saph sites steristipped HOME CARE PROVIDER Neurological: General: No focal deficit present. Mental Status: He is alert and oriented to person, place, and time. Psychiatric: Behavior: Behavior normal. Access: central line Recent Labs Lab Units 05/13/21 0612 05/12/21 0638 05/11/21 0611 WBC K/cumm 9.8 13.8* 17.3* HEMOGLOBIN g/dL 9.7* 10.7* 11.1* HEMATOCRIT % 29.8* 32.7* 33.6* PLATELETS K/cumm 253 304 330 Recent Labs Lab Units 05/13/21 0613 05/12/21 0638 05/11/21 0611 SODIUM mmol/L 127* 130* 132* POTASSIUM PLASMA mmol/L 3.5 3.5 3.5 CHLORIDE mmol/L 94* 94* 95* CO2 mmol/L 23 BUN SERUM mg/dL 27* 26* 24 CREATININE mg/dL 0.76* 0.78* 0.89 CALCIUM mg/dL 8.1* 8.6 8.8 Recent Labs Lab Units 05/12/21 1226 PROTIME (PT) sec 14.0* INR 1.3* APTT sec 29 Imaging: Today's CXR left atelectasis Assessment and Plan: 60 y.o. male 9 Days Post-Op s/p Coronary artery bypass grafting x4, placement of left QUINN to the LAD, saphenous vein graft to the diagonal artery and obtuse marginal in a sequential fashion, saphenous vein graft to the PDA 05/04/[address] Granados Neuro: Gy0w9-2 today, awake. Continue Seroquel as scheduled, PRN Haldol for agitation CVS: NSR 90's. BP soft, Metoprolol changed to XL per cardiology. Recommend changing back to 6.25mg tartrate for tighter control in the postop setting. Continue ASA, hold Plavix for hematuria Pulm: On 4L NC, stable. No obvious infiltrate on CXR. Needs aggressive pulm toilet. On empiric Zosyn, WBCs continue decreasing. Will likely need home O2 eval prior to discharge GI: Heart Healthy DM2 Diet-- +flatus -BM Renal: Continue to hold diuresis. BUN/Scr stable. Cysto today ID: Continue Zosyn, WBC down trending D/L/T: D/c wires, keep central line : Osorio remains in place per . Cysto today Prophylaxis: SCDs, hold Lovenox for hematuria Endo. BS elevated, consult endocrine for management Dispo: Working on HH as patient is refusing placement at this time. Needs aggressive therapy, home O2 jayna prior to returning home Varsha Crowder NP Cardiothoracic Surgery [facility] Cosigned by Rhina Granados MD at 05/13/2021 1:17 PM STAFF FORESTER F FORESTER F FORESTER * Lester Batista MD - 05/13/2021 8:28 AM CST Cardiology Inpatient Progress Note [facility] SUBJECTIVE: Hematuria noted blood pressure remains high 90s to low 100s no chest pain shortness of breath OBJECTIVE: Vitals: 05/12/21 2208 05/12/21 2300 05/13/21 0417 05/13/21 0802 BP: 97/50 103/67 136/65 102/60 BP Location: Right arm Right arm Right arm Patient Position: Lying Lying Lying Pulse: 61 71 86 Resp: Temp: 36.3 ??C (97.4 ??F) 36.9 ??C (98.5 ??F) 36.7 ??C (98.1 ??F) TempSrc: Oral Oral Oral SpO2: 95% 94% 96% Weight: Height: General: Comfortable not in acute distress Cardiac: RRR without murmur or gallop. Normal S1 and S2. No JVD. Vascular: Pulses are palpable in all extremities. No carotid bruits. Lungs: Clear to auscultation (B). Abdomen: Soft, NT/ND, +BS Ext: Warm without edema. No cyanosis or clubbing. ASSESSMENT/PLAN: 1. CAD status post CABG for STEMI -Cardiac cath on 05/01 with 40% distal LM; 100% prox LAD; 90% prox Cx; 50% prox and distal RCA -Left ventriculogram:??Moderate blanka-apical hypokinesis; echo on 05/02 with EF ~40% -balloon angioplasty was performed during acute MT and subsequently patient underwent CABG x4 on 05/04/2021 - ischemic cardiomyopathy EF 42% - Metoprolol Xl 12.5 mg daily, - ACEi/ARB when blood pressure is more stable 2. Dyslipidemia: -stable on Atorvastatin 80mg qday 3. Diabetes -stable on insulin per primary team 4. COPD: -stable without any acute issues ?? 5. PAD: - stable 6. Hematuria Plavix is currently on hold urology following supposed to undergo cystoscopy today Lester Batista MD, [facility], [facility], [facility] [employer] [facility] [phone] F FORESTER * August Colin MD - 05/13/2021 5:46 AM CST Pulmonary Daily Progress Chief complaint/reason for consult: Respiratory failure. Interval History: Pt has been on 4 L of nasal cannula oxygen with saturation 96% He is alert. Confusion has been better Hematuria is less Congested cough Presenting History: 60 yo man w COPD, DM, CAD/stents admitted 05/01/21 with chest pain. Had recent hematuria as well. Workup revealed an acute MT. Cath showed multi-vessel CAD. Had balloon pump placed. CABG x 4 done on 05/04/21. He was continued on mechanical ventilation and self extubated this AM (05/05/21). He is on multiple pressors. Sedated with precedex. Some tachypnea. A balloon pump is in place. Current tobacco use. COPD listed as prior diagnosis. No inhalers on home med list. Allergies: Allergies Allergen Reactions ??? Metoclopramide Medications: Scheduled Meds:acetaminophen, 1,000 mg, oral, Once aspirin, 81 mg, oral, Daily atorvastatin, 80 mg, oral, Nightly [Held by Provider] clopidogreL, 75 mg, oral, Daily docusate sodium, 100 mg, oral, BID [Held by Provider] enoxaparin, 40 mg, subcutaneous, Daily-2100 guaiFENesin ER, 600 mg, oral, BID insulin glargine, 0.25 Units/kg, subcutaneous, Nightly insulin lispro, 0-10 Units, subcutaneous, TID with meals insulin lispro, 0-5 Units, subcutaneous, Nightly insulin lispro, 0.083 Units/kg, subcutaneous, TID with meals metoprolol tartrate, 6.25 mg, oral, BID pantoprazole DR, 40 mg, oral, Daily piperacillin-tazobactam, 3.375 g, intravenous, Q6H LEAH polyethylene glycol, 17 g, oral, BID potassium chloride ER, 20 mEq, oral, BID QUEtiapine, 25 mg, oral, Daily QUEtiapine, 50 mg, oral, Nightly sodium chloride 0.9%, 0.5-20 mL, intra-catheter, Q8H LEAH Continuous Infusions:sodium chloride 0.9%, 75 mL/hr, Last Rate: 75 mL/hr (05/12/21 1724) PRN Meds:.acetaminophen ? ? al & mag hydroxide dxptiynoani-gkskqmorekbeale-zmqsqqfpm-nystatin ??? albuterol ??? dextrose OR dextrose ??? glucagon ??? haloperidol ??? ondansetron ??? sodium chloride 0.9% ROS Above review of system reviewed on 05/13/2021 Vitals: Vitals: 05/12/21 1900 05/12/21 2208 05/12/21 2300 05/13/21 0417 BP: 100/63 97/50 103/67 136/65 BP Location: Right arm Right arm Right arm Patient Position: Lying Lying Lying Pulse: 61 71 Resp: Temp: 36.7 ??C (98.1 ??F) 36.3 ??C (97.4 ??F) 36.9 ??C (98.5 ??F) TempSrc: Oral Oral Oral SpO2: 95% 95% 94% Weight: Height: Temp (24hrs), Av.7 ??C (98 ??F), Min:36.3 ??C (97.4 ??F), Max:36.9 ??C (98.5 ??F) Intake/Output Summary (Last 24 hours) at 05/13/2021 0546 Last data filed at 05/12/2021 1550 Gross per 24 hour Intake 240 ml Output 400 ml Net -160 ml Physical Exam Constitutional: General: He is not in acute distress. Appearance: He is well-developed. HENT: Head: Normocephalic and atraumatic. Eyes: Conjunctiva/sclera: Conjunctivae normal. Neck: Thyroid: No thyromegaly. Cardiovascular: Rate and Rhythm: Normal rate and regular rhythm. Heart sounds: No murmur heard. Pulmonary: Effort: Pulmonary effort is normal. No respiratory distress. Breath sounds: Normal breath sounds. No stridor. No wheezing or rales. Chest: Comments: Sternotomy incision Abdominal: General: Bowel sounds are normal. Palpations: Abdomen is soft. Skin: General: Skin is warm and dry. Neurological: Mental Status: He is alert. Lab/Radiology/Diagnostic Review: Labs: Recent Labs Lab Units 05/12/21 0638 05/11/21 0611 05/10/21 0502 WBC K/cumm 13.8* 17.3* 21.2* HEMOGLOBIN g/dL 10.7* 11.1* 12.4* HEMATOCRIT % 32.7* 33.6* 37.7* PLATELETS K/cumm 304 330 344 Recent Labs Lab Units 05/13/21 0140 05/12/21 2204 05/12/21 1743 05/12/21 0709 05/12/21 0638 05/11/21 0859 05/11/21 0611 05/10/21 0514 05/10/21 0502 SODIUM mmol/L -- -- -- -- 130* -- 132* -- 129* POTASSIUM PLASMA mmol/L -- -- -- -- 3.5 -- 3.5 -- 3.6 CHLORIDE mmol/L -- -- -- -- 94* -- 95* -- 90* CO2 mmol/L -- -- -- -- 22 -- 23 -- 25 ANIONGAP mmol/L -- -- -- -- 14 -- 14 -- 14 GLUCOSE mg/dL -- -- -- -- 163 < > 155 < > 187 POC GLUCOSE MONITOR mg/dL 258* 188 171 < > -- < > -- < > -- BUN SERUM mg/dL -- -- -- -- 26* -- 24 -- 23 CREATININE mg/dL -- -- -- -- 0.78* -- 0.89 -- 0.91 CALCIUM mg/dL -- -- -- -- 8.6 -- 8.8 -- 9.4 < > = values in this interval not displayed. Imaging: CXR 05/12: L basilar atelectasis Chest x-ray 05/13 with left-sided infiltrate/layering effusion Other diagnostic tests: I have personally reviewed above laboratory findings, chest imaging, and diagnostic tests 05/13/2021 Assessment and Plan: Acute respiratory failure Acute MT w CAD s/p CABG x 4 on 05/04/21, past hx multiple stents Cardiogenic shock Cardiomyopathy EF 40% V fib Hx COPD Anemia Infiltrates: edema v pna, tracheal aspirate w yeast ?? Recs: Oxygen as required. Wean as tolerated Incentive spirometry abx coverage for pna Scheduled bronchodilators Chart reviewed F FORESTER * Yves Weinberg MD - 05/12/2021 9:24 PM CST Nephrology Progress Note [facility] SUBJECTIVE Doing fair. Some flank pain and mild dyspnea. Na 130 and a little lower. BP better. Agreeable to cysto. OBJECTIVE Vitals: Vitals: 05/12/21 1200 05/12/21 1523 05/12/21 1600 05/12/21 1900 BP: 106/66 100/63 BP Location: Right arm Right arm Patient Position: Lying;HOB 30 degrees Lying Pulse: 106 90 87 Resp: 22 Temp: 36.9 ??C (98.5 ??F) 36.7 ??C (98.1 ??F) TempSrc: Oral Oral SpO2: 96% 95% Weight: Height: Intake/Output Summary (Last 24 hours) at 05/12/2021 2124 Last data filed at 05/12/2021 1550 Gross per 24 hour Intake 240 ml Output 400 ml Net -160 ml REVIEW OF SYSTEMS Review of Systems Constitutional: Negative. HENT: Negative. Eyes: Negative. Respiratory: Negative. Cardiovascular: Negative. Gastrointestinal: Negative. Genitourinary: Negative. Musculoskeletal: Negative. Skin: Negative. Allergic/Immunologic: Negative. Hematological: Negative. All other systems reviewed and are negative. PHYSICAL EXAM Physical Exam Constitutional: Appears well-developed. HENT: wnl Head: Normocephalic. Eyes: Pupils are equal, round, and reactive to light. Neck: Normal range of motion. Neck supple. Cardiovascular: Normal rate. Pulmonary/Chest: Effort normal and breath sounds normal. Abdominal: Soft. Musculoskeletal: Normal range of motion. Neurological: Alert, oriented. Skin: Skin is warm. Nursing note and vitals reviewed. MEDICATIONS Current Facility-Administered Medications: ??? acetaminophen (TYLENOL) tablet 1,000 mg, 1,000 mg, oral, Once, Robby Suárez MD ??? acetaminophen (TYLENOL) tablet 650 mg, 650 mg, oral, Q6H PRN, Eleonora Duarte NP, 650 mg at 05/12/21 1454 ? ? al & mag hydroxide smnmetxnmqi-qrpvgqepvhomxxi-jvbjsfria-nystatin (MAGIC MOUTHWASH) suspension 1-1-1-1, 20 mL, swish & spit, Q4H PRN, Tiana Spence NP, 20 mL at 05/12/21 1457 ??? albuterol 2.5 mg /3 mL (0.083 %) nebulizer solution 2.5 mg, 2.5 mg, nebulization, Q4H PRN (RT),Ralf Tomlinson MD ??? aspirin enteric coated tablet 81 mg, 81 mg, oral, Daily, Varsha Crowder NP, 81 mg at 05/12/21 0940 ??? atorvastatin (LIPITOR) tablet 80 mg, 80 mg, oral, Nightly, Rhina Granados MD, 80 mg at 05/11/21 2143 ??? [Held by Provider] clopidogreL (PLAVIX) tablet 75 mg, 75 mg, oral, Daily, Rhina Granados MD, 75 mg at 05/10/21 0854 ??? dextrose oral liquid liquid 15 g, 15 g, oral, Q15 Min PRN OR dextrose (D10W) 10% bolus 250 mL, 250 mL, intravenous, Q15 Min PRN, Anibal Lara MD ??? docusate sodium (COLACE) capsule 100 mg, 100 mg, oral, BID, 100 mg at 05/12/21 0940 OR [DISCONTINUED] docusate (COLACE) 10 mg/mL oral liquid 100 mg, 100 mg, feeding tube, BID, Rhina Granados MD, 100 mg at 05/05/21 0842 ??? [Held by Provider] enoxaparin (LOVENOX) syringe 40 mg, 40 mg, subcutaneous, Daily-2100, Rhina Granados MD, 40 mg at 05/10/212140 ??? glucagon injection 1 mg, 1 mg, intramuscular, Q30 Min PRN, Anibal Lara MD ??? guaiFENesin ER (MUCINEX) extended release tablet 600 mg, 600 mg, oral, BID, Tiana Spence NP, 600 mg at 05/12/21 0939 ??? haloperidol (HALDOL) injection 2 mg, 2 mg, intramuscular, Q8H PRN, Varsha Crowder NP ??? insulin glargine (LANTUS, SEMGLEE) 100 unit/mL injection 20 Units, 0.25 Units/kg, subcutaneous,Nightly, Anibal Lara MD, 20 Units at 05/11/212144 ??? insulin lispro (HumaLOG, ADMELOG) 100 unit/mL injection 0-10 Units, 0-10 Units, subcutaneous, TID with meals, Anibal Lara MD, 2 Units at 05/12/211744 ??? insulin lispro (HumaLOG, ADMELOG) 100 unit/mL injection 0-5 Units, 0-5 Units, subcutaneous, Nightly, Anibal Lara MD ??? insulin lispro (HumaLOG, ADMELOG) 100 unit/mL injection 7 Units, 0.083 Units/kg, subcutaneous, TID with meals, Anibal Lara MD, 7 Units at 05/12/21 174 ??? metoprolol tartrate (LOPRESSOR) immediate release tablet 6.25 mg, 6.25 mg, oral, BID, Varsha Crowder NP, 6.25 mg at 05/12/21 0939 ??? ondansetron (ZOFRAN) injection 4 mg, 4 mg, intravenous, Q6H PRN, Rhina Granados MD ??? pantoprazole DR (PROTONIX) extended release tablet 40 mg, 40 mg, oral, Daily, Rhina Granados MD, 40 mg at 05/12/21 0941 ??? piperacillin-tazobactam (ZOSYN) 3.375 g in sodium chloride 0.9% 100 mL IVPB, 3.375 g, intravenous, Q6H LEAH, Eleonora Duarte NP, Last Rate: 200 mL/hr at 05/12/21 1728, 3.375 g at 05/12/21 1728 ??? polyethylene glycol (MIRALAX) packet 17 g, 17 g, oral, BID, Rhina Granados MD, 17 g at 05/12/21 0941 ??? potassium chloride ER (KLOR-CON) extended release tablet 20 mEq, 20 mEq, oral, BID, Eleonora Duarte NP, 20 mEq at 05/12/21 0941 ??? [START ON 05/13/2021] QUEtiapine (SEROquel) tablet 25 mg, 25 mg, oral, Daily, Varsha Crowder NP ??? QUEtiapine (SEROquel) tablet 50 mg, 50 mg, oral, Nightly, Varsha Crowder NP ??? sodium chloride 0.9% flush 0.5-20 mL, 0.5-20 mL, intra-catheter, Q8H LEAH, Rhina Granados MD, 10 mL at 05/12/21 0626 ??? sodium chloride 0.9% flush 0.5-20 mL, 0.5-20 mL, intra-catheter, PRN, Robby Suárez MD ??? sodium chloride 0.9% infusion, 75 mL/hr, intravenous, Continuous, Varsha Crowder NP, LastRate: 75 mL/hr at 05/12/21 1724, 75 mL/hr at 05/12/21 172 Lab/Radiology/Diagnostic Review: Recent Results (from the past 24 hour(s)) POCT glucose Collection Time: 05/11/21 9:41 PM Result Value Ref Range Glucose, POC 128 70 - 199 mg/dL POCT glucose Collection Time: 05/12/21 1:46 AM Result Value Ref Range Glucose, POC 179 70 - 199 mg/dL Basic metabolic panel Collection Time: 05/12/21 6:38 AM Result Value Ref Range Sodium 130 (L) 135 - 145 mmol/L Potassium, pl 3.5 3.3 - 4.9 mmol/L Chloride 94 (L) 97 - 110 mmol/L CO2 22 22 - 32 mmol/L Anion gap 14 2 - 15 mmol/L BUN 26 (H) 8 - 25 mg/dL Creatinine 0.78 (L) 0.80 - 1.30 mg/dL Glucose 163 70 - 199 mg/dL Calcium 8.6 8.5 - 10.3 mg/dL CBC without differential Collection Time: 05/12/21 6:38 AM Result Value Ref Range WBC 13.8 (H) 3.8 - 9.9 K/cumm Hgb 10.7 (L) 13.0 - 17.5 g/dL Hct 32.7 (L) 38.9 - 50.3 % Plt 304 150 - 400 K/cumm MPV 11.6 9.1 - 12.3 fL RBC 3.58 (L) 4.30 - 5.80 M/cumm MCV 91.3 81.3 - 96.4 fL MCH 29.9 27.1 - 33.3 pg MCHC 32.7 32.3 - 35.7 g/dL RDW CV 13.4 11.1 - 14.9 % RDW SD 44.9 35.7 - 48.1 fL NRBC abs 0.00 0.00 - 0.01 K/cumm Phosphorus Collection Time: 05/12/21 6:38 AM Result Value Ref Range Phosphorus, pl 3.6 2.3 - 4.5 mg/dL Magnesium Collection Time: 05/12/21 6:38 AM Result Value Ref Range Magnesium 1.9 1.4 - 2.5 mg/dL eGFR Collection Time: 05/12/21 6:38 AM Result Value Ref Range eGFR 99 mL/min/1.73 m2 POCT glucose Collection Time: 05/12/21 7:09 AM Result Value Ref Range Glucose, POC 196 70 - 199 mg/dL POCT glucose Collection Time: 05/12/21 8:10 AM Result Value Ref Range Glucose, POC 202 (H) 70 - 199 mg/dL aPTT Collection Time: 05/12/21 12:26 PM Result Value Ref Range aPTT 29 27 - 37 sec Protime-INR Collection Time: 05/12/21 12:26 PM Result Value Ref Range PT 14.0 (H) 9.5 - 13.6 sec INR 1.3 (H) 0.9 - 1.2 POCT glucose Collection Time: 05/12/21 12:31 PM Result Value Ref Range Glucose, POC 233 (H) 70 - 199 mg/dL POCT glucose Collection Time: 05/12/21 5:43 PM Result Value Ref Range Glucose, POC 171 70 - 199 mg/dL XR Chest 1 View - Portable - in AM Result Date: 05/11/2021 Narrative: EXAMINATION: XR CHEST 1 VIEW HISTORY: The patient is a 60-year-old male who has had cardiac surgery. Comparison made with the previous study dated 05/10/2021. TECHNIQUE: AP portable view of the chest. FINDINGS: Lungs clear. Heart not enlarged. Aortic atherosclerosis. No failure. The right IJ [place] catheter has been retracted with its tip in the distal superior vena cava. Impression: IMPRESSION: No failure. Electronically signed by: Elvira Blackman M.D. XR Chest 1 View - Portable - in AM Result Date: 05/10/2021 Narrative: EXAMINATION: XR CHEST 1 VIEW DATE: 05/10/2021 2:40 AM COMPARISON: 05/09/2021 HISTORY: 60-year-old man cardiac surgery follow-up FINDINGS:Compared with study the previous day, significant improvement. There is cardiomegaly with postsurgical changes with continued and decreasing failure. Bibasilar atelectasis with left pleural fluid decreasing. No pneumothorax. [place] catheter remainsin place Impression: Decreasing failure, atelectasis and left effusion. Electronically signed by: Deandre Lomeli M.D. XR Chest 1 View - Portable - in AM Result Date: 05/09/2021 Narrative: EXAMINATION: XR CHEST 1 VIEW DATE: 05/09/2021 4:10 AM HISTORY: 60-year-old man cardiac surgery follow-up FINDINGS:Compared with study the previous day, significant improvement. There is cardiomegaly with postsurgical changes with continued but decreasing failure. Bibasilar atelectasis with left pleural fluid decreasing. No pneumothorax. [place] catheter remains in place Impression: Decreasing failure, atelectasis and left effusion. Electronically signed by: Deandre Lomeli M.D. XR Chest 1 View - Portable - in AM Result Date: 05/08/2021 Narrative: EXAMINATION: XR CHEST 1 VIEW DATE: 05/08/2021 4:15 AM HISTORY: 60-year-old man cardiac surgery follow-up FINDINGS:Compared with study the previous day, significant improvement. There is cardiomegaly with postsurgical changes with continued but decreasing failure. Bibasilar atelectasis with left pleural fluid. No pneumothorax. [place] catheter remains in place Impression: Decreasing failure. No pneumothorax. Electronically signed by: Deacon Cummings M.D. XR Chest 1 View - Portable - in AM Result Date: 05/07/2021 Narrative: EXAMINATION: XR CHEST 1 VIEW DATE: 05/07/2021 3:55 AM HISTORY: 60-year-old man follow-upcardiac surgery FINDINGS:Compared with study of the previous day, postsurgical changes in the heartand mediastinum with cardiomegaly are stable. [place] catheter remains in place. Left thoracostomy tube remains in place. No pneumothorax. Pulmonary vascular congestion with interstitial lung disease remain prominent. Impression: Persistent prominent interstitial lung disease with failure. Electronically signed by: Deacon Cummings M.D. XR Chest 1 View - Portable - in AM Result Date: 05/06/2021 Narrative: EXAMINATION: XR CHEST 1 VIEW DATE: 05/06/2021 4:05 AM INDICATION: Cardiac surgery. COMPARISON: 05/05/2021. FINDINGS: No pneumothorax or pleural effusion. Similar-appearing pulmonary vascular congestion and interstitial opacities most notable in the bilateral upper lobes consistent with pulmonary edema. Pulmonary catheter catheter, left thoracostomy tube, and mediastinal drain are appropriately position. Intra-aortic balloon pump is appropriately positioned. Interval removal of endotracheal tube. Impression: 1. Interval removal of endotracheal tube. Remaining tubes and lines are appropriately positioned. 2. Similar-appearing cardiomegaly, pulmonary vascular congestion, and prominent bilateralinterstitial markings suggestive of interstitial pulmonary edema. Electronically signed by: Richard Zhao II, D.O. XR Chest 1 View - Portable - in AM Result Date: 05/05/2021 Narrative: EXAMINATION: XR CHEST 1 VIEW DATE: 05/05/2021 4:15 AM HISTORY: 60-year-old man cardiac surgery follow-up FINDINGS:Compared with the study of the prior day, tubes and catheters remain satisfactorily positioned. Worsening pulmonary vascular congestive changes are seen. Cardiomegaly with postsurgical changes stable. No pneumothorax. Impression: Increasing failure. Electronically signed by: Deacon Cummings M.D. XR Chest 1 Vw Portable Result Date: 05/05/2021 Narrative: EXAMINATION: XR CHEST 1 VIEW DATE: 05/04/2021 8:40 PM HISTORY: 60-year-old man coronary artery bypass follow-up FINDINGS:Compared with the study of earlier the same day, postsurgical changes now evident within the heart and mediastinum with cardiomegaly. Interval placement of endotracheal tube, nasogastric tube, [place] catheter, left thoracostomy tube and mediastinal drain all in satisfactory position. No pneumothorax. Interstitial lung disease with mild pulmonary vascular congestive changes. Aortic balloon pump is no longer seen. Impression: Tube placements with postsurgical changes with cardiomegaly with interstitial lung disease and mild failure with no pneumothorax. Electronically signed by: Deacon Cummings M.D. XR Chest 1 Vw Portable Result Date: 05/04/2021 Narrative: EXAMINATION: XR CHEST 1 VIEW DATE: 05/04/2021 9:05 AM HISTORY: Coronary artery disease FINDINGS:Comparison is made with study of 2 days earlier. Cardiomegaly, COPD with interstitial lung disease stable. Mild failure. Aortic balloon pump stable in position at the proximal descending aorta. No pneumothorax. No new infiltrates. Impression: Stable appearance. COPD cardiomegaly, with mild failure suspected. Electronically signed by: Deacon Cummings M.D. XR Chest 1 Vw Portable Result Date: 05/02/2021 Narrative: EXAMINATION: XR CHEST 1 VIEW DATE: 05/02/2021 5:15 AM INDICATION: Intra-aortic balloon pump. COMPARISON: 05/01/2021. FINDINGS: Appropriately positioned intra-aortic balloon pump appears unchanged. No pneumothorax or pleural effusion. Mixed reticular and alveolar opacities demonstrated inall lung lobes appear most significant in the upper lobes and perihilar regions, unchanged. Impression: 1. Appropriately positioned intra-aortic balloon pump. 2. Similar mixed reticular and alveolar opacities most notable in the bilateral upper lobes and perihilar region. Electronically signed by: Richard Lopez II DJimmie XR Chest 1 Vw Portable Result Date: 05/02/2021 Narrative: EXAMINATION: XR CHEST 1 VIEW DATE: 05/01/2021 8:15 PM INDICATION: Hypoxia. COMPARISON: None. FINDINGS: No pneumothorax. No pleural effusion. Mixed reticular and alveolar opacities are demonstrated in all lung lobes but demonstrate an upper lobe and perihilar predominance. Findings may represent pulmonary edema on background of centrilobular emphysematous changes. Underlying infectious process not entirely excludable. Cardiac mediastinal silhouette is stable in appearance. No acute osseous abnormality. Impression: Mixed reticular and alveolar opacities are demonstrated in all lung lobes but demonstrate an upper lobe and perihilar predominance. Findings may represent pulmonary edema on background ofcentrilobular emphysematous changes. Electronically signed by: Richard Lopez II, D.O. Transthoracic Echo (TTE) Limited Result Date: 05/07/2021 Narrative: [place] [address] Limited Echocardiogram Report Patient Name: DEEPAK ALVARADO : 1960 StudyDate: 05/07/2021 12:16:52 PM Gender: M Tech: Location: [place] [address] Ref.Provider: RHINA GRANADOS Height(Cm): 175 BSA: 2.1 Weight(Kg): 91 Heart Rate: 82 BP: 127/44 Quality: Good Order Provider: Dr. Sutton Procedures: Echocardiographic Report: Limited transthoracic echocardiogram with 2D and M-Mode. Measurements: 2D/M Mode Measurement Value Normal Range LVIDd 2D 3.43 [ 4.20 -5.90 ] cm LVIDs 2D 2.59 [ 2.30 - 3.90 ] cm LVPWd 2D 1.01 [ 0.60 - 1.00 ] cm IVSd 2D 0.71 [ 0.60 - 0.90 ] cm Findings: Left Ventricle: Reduced left ventricular cavity size. Mild global left ventricular systolic dysfunction. Ejection fraction is measured at 42 %. These segments of the LV are hypokinetic: apical anterior segment. Pericardium: Trivial pericardial effusion. No echocardiographic evidence to suggest pericardial tamponade. Conclusions: Reduced left ventricular cavity size. Mild global left ventricular systolic dysfunction. Ejection fraction is measured at 42 %. These segments of the LV are hypokinetic: apical anterior segment. Trivial pericardial effusion. No echocardiographic evidence to suggest pericardial tamponade. Electronically Signed By: Gianni Francois MD, [facility] :54:09 STAFF FORESTER Transthoracic Echo Complete W Doppler/CF Result Date: 05/02/2021 Narrative: [place] [address] Echocardiogram Report Patient Name: DEEPAK ALVARADO W : 1960 Study Date: 05/02/2021 8:50:02 AM Gender: M Tech: Location: [place] [address] Ref Provider: NALINI CLAYTONHeight(Cm): 175 BSA: 2.11 Weight(Kg): 92 Heart Rate: 89 BP: 102/52 Quality: Good Order Provider: NALINI CLAYTON PROCEDURES: Echocardiographic Report: Transthoracic echocardiogram with complete 2D, M-Mode, and color Doppler examination. INDICATIONS: Free Text. Measurements: 2D/M Mode Doppler Measurement Value Normal Range Measurement Value Normal Range EF Teich 2D 30.0 [ 55.0 - 70.0 ] percent CHRISTINA Vmax 2.04 [ 2.00 - 4.00 ] cm2 EF Mod 4C 42.2 [ 55.0 - 70.0 ] percent AV Mean PG 5 [ 2 - 4 ]mmHg LVIDd 2D 4.54 [ 4.20 - 5.90 ] cm AV Peak Ramesh 1.54 [ 1.00 - 1.70 ] m/s LVIDs 2D 3.91 [ 2.30 - 3.90 ] cm AV VTI 26.93 cm LVPWd 2D 0.92 [ 0.60 - 1.00 ] cm LVOT Diam 2.20 [ 1.70 - 2.10 ] cm IVSd 2D0.76 [ 0.60 - 0.90 ] cm LVOT Peak Ramesh 0.83 [ 0.70 - 1.10 ] m/s LA Dimension MM 5.08 [ 3.00 - 4.00 ]cm LVOT VTI 13.82 [ 20.00 - 30.00 ] cm AoR Diam MM 4.12 [ 2.60 - 3.70 ] cm MV E Peak Ramesh 0.85 [ 0.60 - 1.30 ] m/s LA Volume Index 20.83 [ 16.00 - 28.00 ] cc/m2 MV A Peak Ramesh 1.14 [ 1.00 - 1.20 ] m/sACS MM 1.91 [ 1.50 - 2.60 ] cm MV Mean PG 1 [ <= 5 ] mmHg MV PHT 43 [ 20 - 100 ] msec MVA 2.20MV Decel Time 137 [ 104 - 258 ] msec PV Peak Ramesh 1.10 [ 0.40 - 0.80 ] m/s TR Peak Ramesh 1.32 [ 1.00 - 2.80 ] m/s TR Peak PG 7 mmHg RVSP 16.93 [ 10.00 - 36.00 ] mmHg E' 0.06 E/E' 14.00 Measurement Value Normal Range Measurement Value Normal Range 2D/M Mode Doppler - FINDINGS: Atrial Septum: Normal atrial septum. Left Ventricle: Normal left ventricular size. Left ventricle not well visualized. There is severe hypokinesis of the mid anteroseptal, anterior, and apical mancilla. Normal left ventricular wall thickness. Impaired diastolic relaxation Grade I. Ejection fraction is visually estimated at 40 %. Left Atrium: The left atrium is normal in size. Right Ventricle: Normal right ventricular size. Normal right ventricular systolic function. Right Atrium: The right atrium is normal in size. Aortic Valve: Normal structure of the aortic valve. No evidence of hemodynamically significant aortic stenosis by Doppler. No aortic regurgitation. Mitral Valve: Normal structure of the mitral valve. Trivial regurgitation of the mitral valve. Pulmonic Valve: Pulmonic valve not well visualized. Trivial re gurgitation in the pulmonic valve. Tricuspid Valve: Normal structure of the tricuspid valve. Trivial regurgitation in the tricuspid valve. Pericardium: Normal pericardium with no significant pericardial effusion. Aorta: Normal aortic root. IVC: Normal size and normal respiratory collapse consistentwith normal right atrial pressure (<5 mmHg). CONCLUSIONS: Technically difficult study with limited views. Normal left ventricular size. Left ventricle not well visualized. There is severe hypokinesis of the mid anteroseptal, anterior, and apical mancilla. Normal left ventricular wall thickness. Impaired diastolic relaxation Grade I. Ejection fraction is visually estimated at 40 %. Normal right ventricular size. Normal right ventricular systolic function. Normal structure of the mitral valve. Trivial regurgitation of the mitral valve. Normal structure of the tricuspid valve. Trivial regurgitation in the tricuspid valve. Electronically Signed By: Rylee Brito DO, FACJustyna, VILMA, FAISAL 2021-05-02 14:07:25 STAFF FORESTER CC: CC: CC: ASSESSMENT/PLAN Hyponatremia from SIADH and possibly from zaroxylyn use. Work up for hyponatremia will be ordered. PO FR. DC Zaroxylyn. No normotonic fluids yet. Urine lytes and osm. If in clinical fluid overload, may use tolvaptan. Renal fn is normal. Na stable. ?? Recent bladder tumor removal with hematuria. ?? -??Urology is following.H/H stable -Cysto tomorrow. ?? Hypokalemia from diuresis. Replace PRN. ?? 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 ?? Syncopal episode -(+) orthostasis -receiving albumin -IV lasix was discontinued. ??There is a 1x order for zaroxolyn 10mg this am- recommend holding fornow. ??D/w RN ?? Coronary artery disease -s/p CABG post STEMI -??underwent four-vessel bypass ??MAE to the LAD, sequential saphenous vein graft to diagonal and obtuse marginal and a vein graft to the PDA. -s/p??low dose dobutamine -paced rhythm -??IV??diuretics??discontinued d/t syncopal episode today (see above) ?? Moderate LV dysfunction -s/p IV??lasix??and??low dose??dobutamine -Beta blockers, ??[place] once off dobutamine-would hold off adding given syncopal episode this am -repeat ECHO 05/07 EF 42% (see above) ?Nonsustained ventricular tachycardia -no recurrence of VT -K 3.7, Mg??2.0. ??Supplement to keep K >/= 4.0, Mg >/= 2.0 ?Diabetes mellitus -?on lantus and SSI ?? COPD: ?? -on?O2 NC??4L (dried blood to L nare humidified o2 ordered) ?? Dyslipidemia -?Continue atorvastatin. ?PAD -?Stable ? Anemia -Hb??11.4 (10.5)??(8.6) -monitor ?? I can be reached at [phone] with any concerns. Thank you Rhina Granados MD for the consult. Yves Weinberg [facility] [phone] F FORESTER * Anibal Lara MD - 05/12/2021 1:53 PM CST Hospitalist Progress Note Name: Deepak Alvarado Admission Date: 05/01/2021 Today's Date: 05/12/2021 Subjective: Pt seen and examined while in the ICU, Clinical course: Overall pt condition has improved. Pt will be transferred to 9th floor, had Osorio with blood urine and still on Dobutamine gtt 05/09: pt is on RA, still on Dobutamine gtt today 05/10: off Dobutamine gtt, new events noted ( had a near syncope/syncope episode at 2 am while trying to go the bathroom) 05/11: worsening hematuria noted, on 5L per NC 05/12: little confused this am, no RA Objective: Vitals: 05/11/21 2300 05/12/21 0300 05/12/21 0700 05/12/21 1150 BP: 98/65 102/68 105/72 106/68 BP Location: Right arm Right arm Right arm Right arm Patient Position: Sitting Pulse: 97 101 Resp: 18 18 18 16 Temp: 36.9 ??C (98.4 ??F) 36.8 ??C (98.3 ??F) 36.5 ??C (97.7 ??F) TempSrc: Oral Oral Oral SpO2: 90% 93% Weight: Height: Wt Readings from Last 3 Encounters: 05/09/21 79.8 kg (176 lb) 08/27/13 114.3 kg (252 lb) 10/19/12 111.6 kg (246 lb) I/O last 3 completed shifts: In: 300 [P.O.:300] Out: 2800 [Urine:2100; Emesis/NG output:700] No intake/output data recorded. Scheduled Meds Current Facility-Administered Medications Medication Dose Route Frequency Provider Last Rate Last Admin ??? acetaminophen (TYLENOL) tablet 1,000 mg 1,000 mg oral Once Robby Suárez MD ??? acetaminophen (TYLENOL) tablet 650 mg 650 mg oral Q6H PRN Eleonora Duarte NP ? ? al & mag hydroxide elwyncqltsi-qkorzrovigxlbmx-dwznqmqkk-nystatin (MAGIC MOUTHWASH) suspension 1-1-1-1 20 mL swish & spit Q4H PRN Tiana Spence NP 20 mL at 05/09/21 1815 ??? albuterol 2.5 mg /3 mL (0.083 %) nebulizer solution 2.5 mg 2.5 mg nebulization Q4H PRN (RT) Ralf Tomlinson MD ??? aspirin enteric coated tablet 81 mg 81 mg oral Daily Varsha Crowder NP 81 mg at 05/12/21 0940 ??? atorvastatin (LIPITOR) tablet 80 mg 80 mg oral Nightly Rhina Granados MD 80 mg at 05/11/21 2143 ??? [Held by Provider] clopidogreL (PLAVIX) tablet 75 mg 75 mg oral Daily Rhina Granados MD 75 mg at 05/10/21 0854 ??? dextrose oral liquid liquid 15 g 15 g oral Q15 Min PRN Anibal Lara MD Or ??? dextrose (D10W) 10% bolus 250 mL 250 mL intravenous Q15 Min PRN Anibal Mon MD ??? docusate sodium (COLACE) capsule 100 mg 100 mg oral BID Rhina Granados MD 100 mg at 05/12/21 0940 ??? [Held by Provider] enoxaparin (LOVENOX) syringe 40 mg 40 mg subcutaneous Daily-2100 Rhina Granados MD 40 mg at 05/10/21 2141 ??? glucagon injection 1 mg 1 mg intramuscular Q30 Min PRN Anibal Lara MD ??? guaiFENesin ER (MUCINEX) extended release tablet 600 mg 600 mg oral BID Tiana Spence NP 600 mg at 05/12/21 0939 ??? insulin glargine (LANTUS, SEMGLEE) 100 unit/mL injection 20 Units 0.25 Units/kg subcutaneous Nightly Anibal Lara MD 20 Units at 05/11/21 2145 ??? insulin lispro (HumaLOG, ADMELOG) 100 unit/mL injection 0-10 Units 0-10 Units subcutaneous TID with meals Anibal Lara MD 4 Units at 05/12/21 1232 ??? insulin lispro (HumaLOG, ADMELOG) 100 unit/mL injection 0-5 Units 0-5 Units subcutaneous Nightly Anibal Lara MD ??? insulin lispro (HumaLOG, ADMELOG) 100 unit/mL injection 7 Units 0.083 Units/kg subcutaneous TIDwith meals Anibal Lara MD 7 Units at 05/12/21 1232 ??? metoprolol tartrate (LOPRESSOR) immediate release tablet 6.25 mg 6.25 mg oral BID Aníbal Crowder NP 6.25 mg at 05/12/21 0939 ??? ondansetron (ZOFRAN) injection 4 mg 4 mg intravenous Q6H PRN Rhina Granados MD ??? oxyCODONE (ROXICODONE) tablet 5 mg 5 mg oral Q4H PRN Rhina Granados MD 5 mg at 05/12/21 0943 ??? pantoprazole DR (PROTONIX) extended release tablet 40 mg 40 mg oral Daily Rhina Granados MD40 mg at 05/12/21 0941 ??? piperacillin-tazobactam (ZOSYN) 3.375 g in sodium chloride 0.9% 100 mL IVPB 3.375 g [id number] LEAH Eleonora Duarte NP 200 mL/hr at 05/12/21 1215 3.375 g at 05/12/21 1215 ??? polyethylene glycol (MIRALAX) packet 17 g 17 g oral BID Rhina Granados MD 17 g at 05/12/21 0941 ??? potassium chloride ER (KLOR-CON) extended release tablet 20 mEq 20 mEq oral BID Eleonora Duarte NP 20 mEq at 05/12/21 0941 ??? [START ON 05/13/2021] QUEtiapine (SEROquel) tablet 25 mg 25 mg oral Daily Varsha Crowder, EFREN ??? QUEtiapine (SEROquel) tablet 50 mg 50 mg oral Nightly Varsha Crowder, EFREN ??? sodium chloride 0.9% flush 0.5-20 mL 0.5-20 mL intra-catheter Q8H Rhina Flores MD 10 mL at 05/12/21 0626 ??? sodium chloride 0.9% flush 0.5-20 mL 0.5-20 mL intra-catheter PRN Robby Suárez MD acetaminophen ? ? al & mag hydroxide ueyyrofwchu-lqcytcqeyuvbghf-djvjiiqex-nystatin ??? albuterol ??? dextrose OR dextrose ??? glucagon ??? ondansetron ??? oxyCODONE ??? sodium chloride 0.9% Physical Exam: General: alert, cooperative, no distress, appears stated age HEENT: Head:normacephalic, Eyes: Perrla, EOMI bilaterally, nasal and oral mucosal pink and moist Heart: normal rate, regular rhythm, normal S1, S2, no murmurs, rubs, clicks or gallops Lungs: clear to auscultation, no wheezes or rales and unlabored breathing Abdomen: soft, nontender, nondistended, no masses or organomegaly Extremities: peripheral pulses normal, no pedal edema, no clubbing or cyanosis Neuro: alert, oriented x 3, no defects noted in general exam. Lab Data Laboratory review: Chemistry CMP: Lab Results Component Value Date BUNSER 26 (H) 05/12/2021 CALCIUM 8.6 05/12/2021 CO2 22 05/12/2021 CHLORIDE 94 (L) 05/12/2021 CREATININE 0.78 (L) 05/12/2021 GLUCOSE 233 (H) 05/12/2021 GLUCOSE 163 05/12/2021 POTASSIUM 3.5 05/12/2021 SODIUM 130 (L) 05/12/2021 , CBC: Lab Results Component Value Date WBC 13.8 (H) 05/12/2021 RBC 3.58 (L) 05/12/2021 HGB 10.7 (L) 05/12/2021 HCT 32.7 (L) 05/12/2021 MCV 91.3 05/12/2021 MCH 29.9 05/12/2021 MCHC 32.7 05/12/2021 RDWCV 13.4 05/12/2021 RDWSD 44.9 05/12/2021 MPV 11.6 05/12/2021 NRBCABS 0.00 05/12/2021 , Coags: Lab Results Component Value Date PT 14.0 (H) 05/12/2021 APTT 29 05/12/2021 INR 1.3 (H) 05/12/2021 , Lipids: No results found for: CHOL, CHLPL, HDL, LDLCALC, TRIG, CHOLHDL, Cardiac Enzymes: No results found for: CKTOTAL, CKMB, CKMBINDEX, TROPONINT and POC Glucose: Lab Results Component Value Date GLUCOSE 233 (H) 05/12/2021 GLUCOSE 163 05/12/2021 Home Medications have been reviewed and updated on pt's list Assessment and Plan Near syncope/Syncope episode, probable vaso vagal, monitor Acute anterior STEMI with CAD , s/p PCI to LAD -s/p CABG x 4 05/04 given re thrombosis of existing stents -s/p IABP, removed 05/06 - off Dobutamine gtt today -pt is on ASA, statins , added BBs , Plavix on hold due to hematuria ?? Post CABG cardiogenic shock - s/p fluid resuscitation , Levophed - off Dobutamine gtt ?? Ventricular fibrillation - briefly on 05/03 - treated with Amiodarone ; now off Dobutamine ?? Gross Hematuria - in a pt with hx of cystoscopy, -clot evacuation and transurethral resection of bladder tumor at [facility] -s/p 20??German three way catheter, urine still bloody -holding Plavix and Lovenox -urology follows ?? Acute resp failure - self ext 05/05/21 -Lung infiltrates - pulm vascular congestion versus pneumonia -off Lasix due to hyponatremia, changed to Zosyn due to worsening Leukocytosis -today on 5L per NC -pulmonology follows ?? Type 2 diabetes.??- transitioned into SSI protocol And Lantus ?? Acute blood loss anemia ; -s/p PRBC transfusions in ICU -Hb today 11.1 monitor Mild hyponatremia, holding Lasix ?? Hx of Tobacco use. ?? Vitamin-D deficiency.- stable DVT prophylaxis :holding Lovenox due to worsening hematuria Pt will need continued inpatient management for the above medical issues. Code status: full Anibal Hughes MD Team Health Hospitalist 05/12/2021 1:53 PM F FORESTER * Alejandro Pratt MD - 05/12/2021 11:26 AM CST Pulmonary Daily Progress Chief complaint/reason for consult: Respiratory failure. Interval History: Pt noted to be hypoxemic with SaO2 85% on RA Placed back on 4 lpm He is alert Comfortable sitting in chair Not much cough No chest pain Presenting History: 60 yo man w COPD, DM, CAD/stents admitted 05/01/21 with chest pain. Had recent hematuria as well. Workup revealed an acute MT. Cath showed multi-vessel CAD. Had balloon pump placed. CABG x 4 done on 05/04/21. He was continued on mechanical ventilation and self extubated this AM (05/05/21). He is on multiple pressors. Sedated with precedex. Some tachypnea. A balloon pump is in place. Current tobacco use. COPD listed as prior diagnosis. No inhalers on home med list. Allergies: Allergies Allergen Reactions ??? Metoclopramide Medications: Scheduled Meds:acetaminophen, 1,000 mg, oral, Once aspirin, 81 mg, oral, Daily atorvastatin, 80 mg, oral, Nightly [Held by Provider] clopidogreL, 75 mg, oral, Daily docusate sodium, 100 mg, oral, BID [Held by Provider] enoxaparin, 40 mg, subcutaneous, Daily-2100 guaiFENesin ER, 600 mg, oral, BID insulin glargine, 0.25 Units/kg, subcutaneous, Nightly insulin lispro, 0-10 Units, subcutaneous, TID with meals insulin lispro, 0-5 Units, subcutaneous, Nightly insulin lispro, 0.083 Units/kg, subcutaneous, TID with meals metoprolol tartrate, 6.25 mg, oral, BID pantoprazole DR, 40 mg, oral, Daily piperacillin-tazobactam, 3.375 g, intravenous, Q6H LEAH polyethylene glycol, 17 g, oral, BID potassium chloride ER, 20 mEq, oral, BID [START ON 05/13/2021] QUEtiapine, 25 mg, oral, Daily QUEtiapine, 50 mg, oral, Nightly sodium chloride 0.9%, 0.5-20 mL, intra-catheter, Q8H LEAH Continuous Infusions: PRN Meds:.acetaminophen ? ? al & mag hydroxide cifszwodnjs-dvwaqpqiatxdtyl-kixrjluef-nystatin ??? albuterol ??? dextrose OR dextrose ??? glucagon ??? ondansetron ??? oxyCODONE ??? sodium chloride 0.9% ROS Above review of system reviewed on 05/12/2021 Vitals: Vitals: 05/11/21 2142 05/11/21 2300 05/12/21 0300 05/12/21 0700 BP: 106/63 98/65 102/68 105/72 BP Location: Right arm Right arm Right arm Patient Position: Pulse: 95 97 Resp: 18 18 18 Temp: 36.9 ??C (98.4 ??F) 36.8 ??C (98.3 ??F) TempSrc: Oral Oral SpO2: 90% Weight: Height: Temp (24hrs), Av.8 ??C (98.2 ??F), Min:36.6 ??C (97.8 ??F), Max:37.1 ??C (98.7 ??F) Intake/Output Summary (Last 24 hours) at 05/12/2021 1126 Last data filed at 05/11/2021 1725 Gross per 24 hour Intake 60 ml Output 1800 ml Net -1740 ml Physical Exam Constitutional: General: He is not in acute distress. Appearance: He is well-developed. HENT: Head: Normocephalic and atraumatic. Eyes: Conjunctiva/sclera: Conjunctivae normal. Neck: Thyroid: No thyromegaly. Cardiovascular: Rate and Rhythm: Normal rate and regular rhythm. Heart sounds: No murmur heard. Pulmonary: Effort: Pulmonary effort is normal. No respiratory distress. Breath sounds: Normal breath sounds. No stridor. No wheezing or rales. Chest: Comments: Sternotomy incision Abdominal: General: Bowel sounds are normal. Palpations: Abdomen is soft. Skin: General: Skin is warm and dry. Neurological: Mental Status: He is alert. Lab/Radiology/Diagnostic Review: Labs: Recent Labs Lab Units 05/12/21 0638 05/11/21 0611 05/10/21 0502 WBC K/cumm 13.8* 17.3* 21.2* HEMOGLOBIN g/dL 10.7* 11.1* 12.4* HEMATOCRIT % 32.7* 33.6* 37.7* PLATELETS K/cumm 304 330 344 Recent Labs Lab Units 05/12/21 0810 05/12/21 0709 05/12/21 0638 05/11/21 0859 05/11/21 0611 05/10/21 0514 05/10/21 0502 SODIUM mmol/L -- -- 130* -- 132* -- 129* POTASSIUM PLASMA mmol/L -- -- 3.5 -- 3.5 -- 3.6 CHLORIDE mmol/L -- -- 94* -- 95* -- 90* CO2 mmol/L -- -- 22 -- 23 -- 25 ANIONGAP mmol/L -- -- 14 -- 14 -- 14 GLUCOSE mg/dL -- -- 163 < > 155 < > 187 POC GLUCOSE MONITOR mg/dL 202* 196 -- < > -- < > -- BUN SERUM mg/dL -- -- 26* -- 24 -- 23 CREATININE mg/dL -- -- 0.78* -- 0.89 -- 0.91 CALCIUM mg/dL -- -- 8.6 -- 8.8 -- 9.4 < > = values in this interval not displayed. Recent Labs Lab Units 05/05/21 1605 05/05/21 1204 PH ART 7.43 7.44 PCO2 ART mmHg 29* 30* PO2 ART mmHg 82* 66* HCO3 ART (CALC) mmol/L 21 22 BASE EXC ART mmol/L -4 -3 O2 SAT ART (JOELLE) % 97* 94 Imaging: CXR 05/12: L basilar atelectasis CXR 05/09 pulmonary vascular congestion CXR 05/10 clear Other diagnostic tests: I have personally reviewed above laboratory findings, chest imaging, and diagnostic tests 05/12/2021 Assessment and Plan: Acute respiratory failure Acute MT w CAD s/p CABG x 4 on 05/04/21, past hx multiple stents Cardiogenic shock Cardiomyopathy EF 40% V fib Hx COPD Anemia Infiltrates: edema v pna, tracheal aspirate w yeast ?? Recs: Oxygen as required. Wean as tolerated Incentive spirometry abx coverage for pna Scheduled bronchodilators Chart reviewed F FORESTER * SilvianoEllen, COMPRESSOR HOUSE OPERATOR - 05/12/2021 11:10 AM CST Physical Therapy PT PROGRESS NOTE Deepak Giovany Alvarado 60 y.o. 1960 Past Medical History: Diagnosis Date ??? Chronic obstructive pulmonary disease (CMS/HCC) (HCC) COPD ??? Coronary artery disease ??? Diabetes mellitus (HCC) ??? H/O heart artery stent 2006 ??? Hypertension Hypertension ??? ST elevation (STEMI) myocardial infarction (HCC) 05/01/2021 History reviewed. No pertinent surgical history. Patient Active Problem List Diagnosis ??? ST elevation myocardial infarction (STEMI) (HCC) TIME IN: 1110 TIME OUT: 1205 SUBJECTIVE I haven't had anything to drink, my mouth is so dry! I can't get any sleep because I'm in a different room now and I'm not used to it. MENTAL STATUS/ORIENTATION: alert PAIN: Pre-therapy pain level: 8/10 Pain location: back Pain intervention: repostioned Post-therapy pain level/response to intervention: unchanged OBJECTIVE PRECAUTIONS: fall, cadiac, sternal APPEARANCE/POSTURE: seated in chair with LE's elevated, osorio catheter, external pacer, sitter in room. VITAL SIGNS: Resting BP: 72/54 in sitting BP upon sitting after standing <1 minute: 84/64 BP upon sitting after standing 2nd time for <1 minute:84/62 Post-activity BP following amb to/from restroom: 106/68 Resting heart rate: 92 BPM Post-activity heart rate: 103 BPM Resting O2 sat: 85-87% on room air; 93% on 4L. Post-activity O2 sat: 93% on 4L. O2 MOBILITY DOCUMENTATION: Bed Mobility/Transfers: sit to/from stand with CGA, vc's for sternal precautions and hand placement. Toilet transfer with min assist, vc's for hand placement. Gait: stand with w/w for 30-45 seconds x2 with CGA/min assist, time standing limited by dizziness. amb with w/w with CGA/min assist 12'x2. APPEARANCE/POSTURE (end of session): seated in chair with osorio catheter, O2, external pacer, alarmin place and activated, sitter in room, call light in reach. EDUCATION: Transfers, pre-gait/gait RESPONSE TO EDUCATION: needs reinforcement ASSESSMENT Activity tolerance/response to P.T.: Patient reports dizziness during standing 2x for 30-45 seconds; able to walk 12'x2 with w/w to/from restroom; deferred walking further distance due to dizziness and lower BP's. Barriers to learning: Physical Barriers to discharge: Pain, Cognitive deficit, Decreased endurance and Medical complications, impaired balance Patient continues progressing toward previously set goals which remain appropriate at this time. PLAN Patient to be seen for P.T. 3-5 times per week to address previously established deficits and goals. DISCHARGE LOCATION RECOMMENDATIONS: CARE HOME FACILITY If this is the last note, please consider this the discharge summary. Cosigned by Marylu Dempsey, PT at 05/12/2021 1:09 PM STAFF FORESTER F FORESTER F FORESTER F FORESTER * Lester Batista MD - 05/12/2021 10:33 AM CST Cardiology Inpatient Progress Note [facility] SUBJECTIVE: Does not have chest pain. Complain of pain in the leg. OBJECTIVE: Vitals: 05/11/21 2142 05/11/21 2300 05/12/21 0300 05/12/21 0700 BP: 106/63 98/65 102/68 105/72 BP Location: Right arm Right arm Right arm Patient Position: Pulse: 95 97 Resp: Temp: 36.9 ??C (98.4 ??F) 36.8 ??C (98.3 ??F) TempSrc: Oral Oral SpO2: 90% Weight: Height: General: Comfortable not in acute distress Cardiac: RRR without murmur or gallop. Normal S1 and S2. No JVD. Vascular: Pulses are palpable in all extremities. No carotid bruits. Lungs: Clear to auscultation (B). Abdomen: Soft, NT/ND, +BS Ext: Warm without edema. No cyanosis or clubbing. ASSESSMENT/PLAN: 1. CAD status post CABG for STEMI -Cardiac cath on 05/01 with 40% distal LM; 100% prox LAD; 90% prox Cx; 50% prox and distal RCA -Left ventriculogram:??Moderate blanka-apical hypokinesis; echo on 05/02 with EF ~40% -balloon angioplasty was performed during acute MT and subsequently patient underwent CABG x4 on 05/04/2021 - ischemic cardiomyopathy EF 42% currently on low-dose Lopressor, recommend change to metoprolol XL, ACEi/ARB when blood pressure is more stable 2. Dyslipidemia: -stable on Atorvastatin 80mg qday 3. Diabetes -stable on insulin per primary team 4. COPD: -stable without any acute issues ?? 5. PAD: - stable 6. Hematuria Plavix is currently on hold supposed to undergo urological procedure Lester Batista MD, FACC, [facility], RPVI [employer] [facility] [phone] F FORESTER * Varsha Crowder NP - 05/12/2021 10:00 AM CST Cardiothoracic Surgery Progress Note Deepak Alvarado 1960 Hospital DAY#11 8 Days Post-Op s/p: Procedures: * Coronary artery bypass grafting x4, placement of left QUINN to the LAD, saphenous vein graft to thediagonal artery and obtuse marginal in a sequential fashion, saphenous vein graft to the PDA- [facility] Subjective: Patient resting in chair, has wet cough. Having pain at osorio site. Was scheduled for cystoscopy this AM however became acutely confused and refused procedure. Now alert and oriented and agreeable to proceed. Discussed w/ urology ESCROW CLERK who will reschedule for tomorrow AM OBJECTIVE: Vitals: Temp: [36.6 ??C (97.8 ??F)-37.1 ??C (98.7 ??F)] 36.8 ??C (98.3 ??F) Pulse: [85-97] 97 BP: (96-111)/(56-72) 105/72 Resp: [18] 18 SpO2: [90 %-92 %] 90 % Wt Readings from Last 3 Encounters: 05/09/21 79.8 kg (176 lb) 08/27/13 114.3 kg (252 lb) 10/19/12 111.6 kg (246 lb) I/O last 2 completed shifts: In: 60 [P.O.:60] Out: 1800 [Urine:1800] NET -1740ml for 24 hours -[id number] for stay Physical Exam HENT: Mouth/Throat: Mouth: Mucous membranes are moist. Eyes: Pupils: Pupils are equal, round, and reactive to light. Cardiovascular: Rate and Rhythm: Normal rate and regular rhythm. Pulses: Normal pulses. Heart sounds: Normal heart sounds. Comments: HR Sr 89 VVI Back up - pw taped and secure Pulmonary: Effort: Pulmonary effort is normal. Breath sounds: Normal breath sounds. Genitourinary: Comments: Osorio- dark blood tinged urine Musculoskeletal: General: Normal range of motion. Right lower leg: No edema. Left lower leg: No edema. Skin: Comments: Sternum covered with silver Saph sites steristipped ZULEIKA Neurological: General: No focal deficit present. Mental Status: He is alert and oriented to person, place, and time. Psychiatric: Behavior: Behavior normal. Access: central line Recent Labs Lab Units 05/12/21 0638 05/11/21 0611 05/10/21 0502 WBC K/cumm 13.8* 17.3* 21.2* HEMOGLOBIN g/dL 10.7* 11.1* 12.4* HEMATOCRIT % 32.7* 33.6* 37.7* PLATELETS K/cumm 304 330 344 Recent Labs Lab Units 05/12/21 0638 05/11/21 0611 05/10/21 0502 SODIUM mmol/L 130* 132* 129* POTASSIUM PLASMA mmol/L 3.5 3.5 3.6 CHLORIDE mmol/L 94* 95* 90* CO2 mmol/L 22 23 25 BUN SERUM mg/dL 26* 24 23 CREATININE mg/dL 0.78* 0.89 0.91 CALCIUM mg/dL 8.6 8.8 9.4 Recent Labs Lab Units 05/05/21 1605 05/05/21 1204 PH ART 7.43 7.44 PCO2 ART mmHg 29* 30* PO2 ART mmHg 82* 66* BASE EXC ART mmol/L -4 -3 Imaging: Today's CXR left atelectasis Assessment and Plan: 60 y.o. male 8 Days Post-Op s/p Coronary artery bypass grafting x4, placement of left QUINN to the LAD, saphenous vein graft to the diagonal artery and obtuse marginal in a sequential fashion, saphenous vein graft to the PDA 05/04/[address] Granados Neuro: [id number] now, confused overnight. Received extra dose of Seroquel. Will Increase nightly doseto 50mg and add PRN Haldol CVS: NSR 90's. BP soft, decrease Metoprolol to 6.25mg. Continue ASA, hold Plavix for hematuria Pulm: On 4L NC which is decreased from previous. No obvious infiltrate on CXR. Needs aggressive pulm toilet. On empiric Zosyn, WBCs continue decreasing GI: Heart Healthy DM2 Diet-- +flatus -BM Renal: Continue to hold diuresis. BUN/Scr stable. Refused cysto today, now agreeable, will reschedule for tomorrow ID: Continue Zosyn, WBC 13.8 today D/L/T: Tape wires, keep osorio and central line : Osorio remains in place per . Cysto tomorrow Prophylaxis: SCDs, hold Lovenox for hematuria Dispo: Need SW assessment. PT/OT to eval and treat. Patient already states he is only going home. Has 2 sons and a at home but is disabled. Home mid week. Varsha Crowder NP Cardiothoracic Surgery [facility] Cosigned by Rhina Granados MD at 05/12/2021 3:32 PM STAFF FORESTER F FORESTER F FORESTER * Lise Suggs NP - 05/12/2021 9:40 AM CST Urology Progress Note Subjective Deepak Alvraado is a 60 y.o. male that we are seeing for gross hematuria. He was scheduled for cystoscopy with clot evacuation this morning but had an episode of confusion and the surgery was canceled.Patient is asking when can he have the procedure for his bladder. Nurses are reporting gross hematuria with clots. Hemoglobin 10.7. Lab Results Component Value Date CREATININE 0.78 (L) 05/12/2021 and CBC: Lab Results Component Value Date WBC 13.8 (H) 05/12/2021 HGB 10.7 (L) 05/12/2021 Lab/Radiology/Diagnostic Review: Most Recent: Vitals: 05/12/21 1150 BP: 106/68 Pulse: 101 Resp: 16 Temp: 36.5 ??C (97.7 ??F) SpO2: 93% Review of Systems: All other systems except the HPI are negative. Objective Physical exam: Constitutional: Appears well-developed and well-nourished. Head: Normocephalic and atraumatic. Eyes: Conjunctivae and EOM are normal. Pulmonary/Chest: Effort normal with no respiratory distress noted Musculoskeletal: Normal range of motion. Patient sitting on the side of the bed with physical therapy Neurological: Alert and oriented to person, place, and time. Psychiatric: Normal mood and affect. Behavior is normal. Extremities: warm and well perfused : Indwelling Osorio catheter is patent draining dark cola colored urine Assessment /Plan Principal Problem: ST elevation myocardial infarction (STEMI) ([facility]) 60 y.o. male with gross hematuria and clot retention. Patient is scheduled for cystoscopy, ureteroscopy, clot evacuation 05/13/2021 at 12:[address] Paris. NPO after midnight. COVID-19 test is negative. Thank you for allowing Urology to be a part of the care of your patient. Please call if you have any questions. Lise Suggs NP Urology Division [facility] Office [phone] 05/12/2021 09:40 AM Cosigned by Robinson Parsi MD at 05/17/2021 7:26 PM STAFF FORESTER F FORESTER F FORESTER * Shruthi Hu COTA - 05/12/2021 9:37 AM CST Occupational Therapy NOTE / SESSION TYPE: DAILY PROGRESS / TREATMENT Patient's Name: Deepak Alvarado Age / Sex: 60 y.o. / male Room: [place] [address] : 1960 Date of service: 05/12/21 TIME IN: 09:37 TIME OUT: 10:32 Patient Active Problem List Diagnosis ??? ST elevation myocardial infarction (STEMI) (HCC) Past Medical History: Diagnosis Date ??? Chronic obstructive pulmonary disease (CMS/HCC) (HCC) COPD ??? Coronary artery disease ??? Diabetes mellitus (HCC) ??? H/O heart artery stent 2006 ??? Hypertension Hypertension ??? ST elevation (STEMI) myocardial infarction (HCC) 05/01/2021 History reviewed. No pertinent surgical history. Precautions (including weight-bearing): Fall risk, Bed / chair alarm, Sternal precautions and Cardiac precautions Subjective: PATIENT STATES, I'M DOING FINE, OTHER THAN BEING IN PAIN. I NEED A PAIN PILL BEFORE WE START. (RN REPORTED TO THERAPIST PATIENT WAS COMBATIVE EARLIER THIS A.M., AND A&O X 0) Therapy Pain: Pre-therapy pain level: 7 /10 Pain location: LEFT UPPER THIGH Pain Intervention(s): RN Notified and Pain medication administered during session Post-therapy pain level: 6 /10 Pain scale reference: 0-10 SCALE Objective: Appearance: Presentation upon OT arrival: Patient Supine Presentation upon OT departure: Patient Sitting in bedside recliner Bed / Chair alarm in place and activated upon OT departure: N/A Call light within arms reach of patient at end of session: Yes Completed patient handoff and notified MANAGER RENTAL / RN, name: CALE, of patient's location and functional status upon completion of session VITAL SIGNS: Oxygen LPM: REMAINED ON ROOM AIR DURING ENTIRE OT MORNING SESSION WITHOUT ANY S&S OF DISTRESS/DISCOMFORT AND/OR SOB EPISODES Cognitive / Perceptual: A&O X 4 HOWEVER, REQUIRED INCREASED TIME TO RECALL YEAR. FIRST STATED YEAR WAS 1945- THEN WAS ABLE TO SELF-CORRECT BY STATING YEAR WAS 2020 WITHOUT ANY VCS Mobility / Transfers: Bed Mobility: MIN [id number] ASSIST FOR TRUNK COMPONENT FROM SUPINE > SEATED AT EOB REMAINED SEATED AT EOB FOR ~15 MINUTES TO COMPLETE BATHING/DRESSING TASKS WITH GOOD STATIC SITTING BALANCE Transfer(s): CGA FROM SEATED AT EOB > STANDING AT EOB WITH WW CGA FROM STANDING AT EOB WITH WW > SEATED AT BEDSIDE RECLINER WITH STAND-PIVOT TRANSFER TECHNIQUE Living Skills / Other Activities: SHOWER / BATHE SELF TYPE OF BATHING: SPONGEBATHING LOCATION OF SHOWER / BATHE SELF: Sitting on EOB and Standing at EOB WITH WW TASKS COMPLETED: ALL COMPONENTS COMPONENTS THAT REQUIRED ASSISTANCE (IF APPLICABLE): NONE OVERALL ASSIST LEVEL: INCIDENTAL TOUCHING ASSISTANCE ADAPTIVE EQUIPMENT (IF APPLICABLE): no assistive device ADDITIONAL DOCUMENTATION: PATIENT UTILIZED LEG-CROSSOVER TECHNIQUE TO BATHE BILATERAL LEs WITH SBA AND MIN VCS AFTER INITIAL VERBAL/VISUAL DEMONSTRATION WAS PROVIDED PER THERAPIST. REQURIED CGA WHILESTANDING AT EOB WITH WW TO COMPLETE TAMIKA/BUTTOCK COMPONENTS D/T BALANCE CONCERNS UE DRESSING LOCATION OF UE DRESSING: Sitting on EOB TASKS COMPLETED: Hospital gown OVERALL ASSIST LEVEL: PARTIAL / MODERATE ASSISTANCE: LESS THAN HALF (1% - 49%) ADDITIONAL DOCUMENTATION: N/A PUTTING ON / TAKING OFF FOOTWEAR LOCATION OF PUTTING ON / TAKING OFF FOOTWEAR: Sitting on EOB TASKS COMPLETED: Footie(s) OVERALL ASSIST LEVEL: SUPERVISION ASSISTANCE / VERBAL CUES ADDITIONAL DOCUMENTATION: UTILIZED LEG-CROSSOVER TECHNIQUE TO DOFF/DON BILATERAL FOOTIES WITH SPV Caregiver Present: Yes: SITTER Education & Training Provided: Role of OT, OT plan of care, ADL training, Compensatory ADL strategies, Bed mobility training, Functional transfer training, Balance training, Safety education and CARDIAC AND STERNAL precautions Assessment: Activity tolerance / response to OT session: GOOD PARTICIPATION, GOOD MOTIVATION, RECEPTIVE TO EDUCATION / TRAINING and PRN REST BREAKS REQUIRED Progress towards goals: Please refer to care plan from this date for progress towards individual goals Plan: Therapy Plan: Rehab Potential (Prognosis): good to fair OT Recommendations This Date: Location: Inpatient rehabilitation pending qualify criteria Supervision: 24 hour Follow-up Therapy Recommendations: SKILLED OT IN INPATIENT REHABILITATION SETTING OT Consultation in Regards to Discharge Recommendations: N/A Frequency of therapy: 3-5 times / week If this is the last note, consider this the discharge summary CAITIE Tinsley 05/12/21 Cosigned by Deirdre Conley, OT at 05/13/2021 3:42 PM STAFF FORESTER F FORESTER F FORESTER * Monica Morales, RD - 05/12/2021 8:31 AM CST Nutrition Assessment Pt at risk for malnutrition due to continued poor intakes over admission. Reason for Assessment: Follow Up Encounter Date: 05/12/21 8:31 AM Nutrition Assessment and Plan: Patient is a 60 y.o. male. Admit Dx: STEMI. Admitted on 05/01/2021, current LOS is 11 days. Pt s/p CABG x 4 on 05/04. Pt was not available for interview this morning. Pt w continued poor intakes on heart healthy, consistent CHO diet. Consuming < 50% intakes of meals since surgery. No intakes of Ensure High PRO (ordered qid) recorded over the last several days. No N/V noted. GI: +flatus, no BM since Sx (colace and mirilax ordered). Skin: + Sx incisions to chest and R leg. Will continue heart healthy, consistent CHO diet for Glu control (Glu 128- 202 over the last 24hrs). Modifying Ensure High PRO to tid. Continuing to follow meal/supplement intakes, labs, Wt trends, wound healing, and plans of care. Heart healthy, consistent CHO diet handouts provided to pt w RD contact information at last RD assessment. Will follow and attempt verbal edu as able and appropriate. Current diet order: Adult Diet Special; Low Fat, Low Chol, Low Na; Consistent Carb 2000 maggie Pt intake is inadequate. PO intakes: bites x 1; 25% x4; 50% x 2 Nutrition Diagnosis 1: Inadequate oral intake Related to: Loss of appetite,Recent surgery (no BM since Sx) Evidenced by: PO under 50% Nutrition Diagnosis 2: Increased nutrient needs (protein)Related to: Recent surgeryEvidenced by: Physical finding ?? Interventions: Communication,Modify supplement (continue heart healthy, 2000kcal consistent CHO diet and modify Ensure High PRO to tid) ?? Monitoring and Evaluation: Labs,Blood glucoses,Appetite,Plan of care,PO intake,Discharge plans,Supplement tolerance,I/O,TF tolerance,Weight changes,GI output,Stool patterns ?? Goals: Adequate nutrition to meet estimated needs by next assessment,Oral intake to meet 75% estimated nutritional needs by next assessment,Tolerance of medical food supplement by next assessment,Patient/caregiver able to teach back understanding of role of diet in disease process prior to discharge ?? Estimated needs: ?? Total Kcal/kg Estimated Needs : based on Kcal/k. Type of Weight Used for Estimated Kcals: Current ?? [facility] Total Energy Needs: 1924.8 kcal using Activity Factor: 1.2 ?? [facility] Total Energy Needs + Fever Factor: 1924.8 ?? Total Protein Estimated Needs (gm): 95.8 Protein Needs Based on g/k.2 Type of Weight Used for Estimated Protein : Current. ?? Estimated Fluid Needs ?? Type of Weight Used for Estimated Fluid Needs: Current ?? Fluid Needs Based on : 1 ml/kcal ?? Total Fluid Estimated Needs: Objective Anthropometrics Weight: 79.8 kg (176 lb) Admission Weight : 86.2 kg Weight Change: -7.56 kg (-16.68 lbs) IBW/kg (Calculated) : 72.6 kg Height: 175.3 cm (5' 9.02 ) Weight in (lb) to have BMI = 25: 169 BMI (Calculated): 26 BMI Classification: BMI 25.0 - 29.9 Overweight 3 Day I/O Summary 05/100 - 05/12 0659 In: 300 [P.O.:300] Out: 2800 [Urine:2100] Temp: 36.8 ??C (98.3 ??F) Minute Ventilation (L/min): 12.7 L/min Past Medical History: Diagnosis Date ??? Chronic obstructive pulmonary disease (CMS/HCC) (HCC) COPD ??? Coronary artery disease ??? Diabetes mellitus (HCC) ??? H/O heart artery stent 2006 ??? Hypertension Hypertension ??? ST elevation (STEMI) myocardial infarction (HCC) 05/01/2021 Medications and Lab Review: Scheduled Meds: acetaminophen, 1,000 mg, oral, Once aspirin, 81 mg, oral, Daily atorvastatin, 80 mg, oral, Nightly [Held by Provider] clopidogreL, 75 mg, oral, Daily docusate sodium, 100 mg, oral, BID [Held by Provider] enoxaparin, 40 mg, subcutaneous, Daily-2100 guaiFENesin ER, 600 mg, oral, BID insulin glargine, 0.25 Units/kg, subcutaneous, Nightly insulin lispro, 0-10 Units, subcutaneous, TID with meals insulin lispro, 0-5 Units, subcutaneous, Nightly insulin lispro, 0.083 Units/kg, subcutaneous, TID with meals metoprolol tartrate, 12.5 mg, oral, BID pantoprazole DR, 40 mg, oral, Daily piperacillin-tazobactam, 3.375 g, intravenous, Q6H LEAH polyethylene glycol, 17 g, oral, BID potassium chloride ER, 20 mEq, oral, BID QUEtiapine, 25 mg, oral, BID sodium chloride 0.9%, 0.5-20 mL, intra-catheter, Q8H LEAH Continuous Infusions: sodium chloride 0.9%, 30 mL/hr Sodium Date Value Ref Range Status 05/12/2021 130 (L) 135 - 145 mmol/L Final Potassium, pl Date Value Ref Range Status 05/12/2021 3.5 3.3 - 4.9 mmol/L Final BUN Date Value Ref Range Status 05/12/2021 26 (H) 8 - 25 mg/dL Final Creatinine Date Value Ref Range Status 05/12/2021 0.78 (L) 0.80 - 1.30 mg/dL Final Phosphorus, pl Date Value Ref Range Status 05/12/2021 3.6 2.3 - 4.5 mg/dL Final Magnesium Date Value Ref Range Status 05/12/2021 1.9 1.4 - 2.5 mg/dL Final Calcium Date Value Ref Range Status 05/12/2021 8.6 8.5 - 10.3 mg/dL Final Lab Results Component Value Date HGBA1C 13.5 (H) 05/03/2021 Lab Results Component Value Date GLUCOSE 202 (H) 05/12/2021 GLUCOSE 196 05/12/2021 GLUCOSE 163 05/12/2021 GLUCOSE 179 05/12/2021 GLUCOSE 128 05/11/2021 GLUCOSE 142 05/11/2021 GLUCOSE 155 05/11/2021 GLUCOSE 187 05/10/2021 Nursing Assessment: Last BM Date: (pt unable to state last BM) Bowel Sounds (All Quadrants): Active Emesis Assessment Emesis Color/Appearance: Brown Marko Scale Score: 20 Skin Integrity: Surgical incision Diet Instructions Recommend to eat a generally healthy diet that includes a variety of fruits, vegetables, whole-grain breads, low-fat dairy products, beans, lean meats, and fish. Avoid saturated and trans fats and limit sodium to less than 2,300 mg per day. Avoid foods like desserts, fast food, fried/breaded foods,deli meats, sausage, ruiz, and gravies/sauces. For a Consistent Carbohydrate Diet: Aim to consume 3 meals each day with 60-75 grams of carbohydrate at each one, avoid skipping meals. Avoid sugary drinks like lemonade, regular soda, gatorade, and sweet tea and drink water throughout the day.Monitor your blood sugar and take insulin and medication as directed by your doctor. Call [phone] to speak with a dietitian about any diet related concerns. Recommend to follow up with outpatient nutrition counseling, ask your doctor for a referral and call [phone] to make an appointment. Nutrition Follow-Up : 05/15/[address],LD F FORESTER * Narciso Mayer MD - 05/11/2021 2:53 PM CST Pulmonary Daily Progress Chief complaint/reason for consult: Respiratory failure. Interval History: 4 L nasal cannula oxygen with 90% saturation Not coughing up much sputum Afebrile, off IV inotropes Improved hemodynamic Some improvement in leukocytosis Presenting History: 60 yo man w COPD, DM, CAD/stents admitted 05/01/21 with chest pain. Had recent hematuria as well. Workup revealed an acute MT. Cath showed multi-vessel CAD. Had balloon pump placed. CABG x 4 done on 05/04/21. He was continued on mechanical ventilation and self extubated this AM (05/05/21). He is on multiple pressors. Sedated with precedex. Some tachypnea. A balloon pump is in place. Current tobacco use. COPD listed as prior diagnosis. No inhalers on home med list. Allergies: Allergies Allergen Reactions ??? Metoclopramide Medications: Scheduled Meds:[START ON 05/12/2021] aspirin, 81 mg, oral, Daily atorvastatin, 80 mg, oral, Nightly [Held by Provider] clopidogreL, 75 mg, oral, Daily docusate sodium, 100 mg, oral, BID [Held by Provider] enoxaparin, 40 mg, subcutaneous, Daily-2100 guaiFENesin ER, 600 mg, oral, BID insulin glargine, 0.25 Units/kg, subcutaneous, Nightly insulin lispro, 0-10 Units, subcutaneous, TID with meals insulin lispro, 0-5 Units, subcutaneous, Nightly insulin lispro, 0.083 Units/kg, subcutaneous, TID with meals metoprolol tartrate, 12.5 mg, oral, BID pantoprazole DR, 40 mg, oral, Daily piperacillin-tazobactam, 3.375 g, intravenous, Q6H LEAH polyethylene glycol, 17 g, oral, BID potassium chloride ER, 20 mEq, oral, BID QUEtiapine, 25 mg, oral, BID sodium chloride 0.9%, 0.5-20 mL, intra-catheter, Q8H LEAH Continuous Infusions: PRN Meds:.??? acetaminophen ? ? al & mag hydroxide nkqjyprwhle-urxhgtwrbcgtrgp-pqkaxpepn-nystatin ??? albuterol ??? dextrose OR dextrose ??? glucagon ??? ondansetron ??? oxyCODONE ROS Above review of system reviewed on 05/11/2021 Vitals: Vitals: 05/11/21 0000 05/11/21 0400 05/11/21 0723 05/11/21 1223 BP: 160/90 114/64 108/96 109/68 BP Location: Right arm Right arm Right arm Right arm Patient Position: Lying Lying Pulse: 74 88 90 90 Resp: 18 20 18 18 Temp: 36.5 ??C (97.7 ??F) 36.1 ??C (97 ??F) 36.7 ??C (98.1 ??F) 36.6 ??C (97.9 ??F) TempSrc: Oral Oral Oral Oral SpO2: 97% 91% 92% 90% Weight: Height: Temp (24hrs), Av.6 ??C (97.8 ??F), Min:36.1 ??C (97 ??F), Max:36.9 ??C (98.5 ??F) Intake/Output Summary (Last 24 hours) at 05/11/2021 1453 Last data filed at 05/11/2021 1413 Gross per 24 hour Intake 540 ml Output 1200 ml Net -660 ml Physical Exam Constitutional: General: He is not in acute distress. Appearance: He is well-developed. HENT: Head: Normocephalic and atraumatic. Eyes: Conjunctiva/sclera: Conjunctivae normal. Neck: Thyroid: No thyromegaly. Cardiovascular: Rate and Rhythm: Normal rate and regular rhythm. Heart sounds: No murmur heard. Pulmonary: Effort: Pulmonary effort is normal. No respiratory distress. Breath sounds: Normal breath sounds. No stridor. No wheezing or rales. Chest: Comments: Sternotomy incision Abdominal: General: Bowel sounds are normal. Palpations: Abdomen is soft. Skin: General: Skin is warm and dry. Neurological: Mental Status: He is alert. Lab/Radiology/Diagnostic Review: Labs: Recent Labs Lab Units 05/11/21 0611 05/10/21 0502 05/09/21 0612 05/05/21 1204 05/05/21 0419 WBC K/cumm 17.3* 21.2* 16.0* < > 13.2* HEMOGLOBIN g/dL 11.1* 12.4* 11.4* < > 10.7* HEMATOCRIT % 33.6* 37.7* 34.9* < > 30.4* PLATELETS K/cumm 330 344 294 < > 191 NEUTROS PCT % -- -- -- -- 84.2 LYMPHS PCT % -- -- -- -- 3.1 MONOS PCT % -- -- -- -- 11.2 EOS PCT % -- -- -- -- 0.2 < > = values in this interval not displayed. Recent Labs Lab Units 05/11/21 1128 05/11/21 0859 05/11/21 0611 05/10/21 0514 05/10/21 0502 05/09/21 0756 05/09/21 0612 SODIUM mmol/L -- -- 132* -- 129* -- 131* POTASSIUM PLASMA mmol/L -- -- 3.5 -- 3.6 -- 3.7 CHLORIDE mmol/L -- -- 95* -- 90* -- 92* CO2 mmol/L -- -- 23 -- 25 -- 26 ANIONGAP mmol/L -- -- 14 -- 14 -- 13 GLUCOSE mg/dL -- -- 155 < > 187 < > 174 POC GLUCOSE MONITOR mg/dL 309* 172 -- < > -- < > -- BUN SERUM mg/dL -- -- 24 -- 23 -- 17 CREATININE mg/dL -- -- 0.89 -- 0.91 -- 0.78* CALCIUM mg/dL -- -- 8.8 -- 9.4 -- 9.4 < > = values in this interval not displayed. Recent Labs Lab Units 05/05/21 1605 05/05/21 1204 05/05/21 1015 PH ART 7.43 7.44 7.45 PCO2 ART mmHg 29* 30* 29* PO2 ART mmHg 82* 66* 75* HCO3 ART (CALC) mmol/L BASE EXC ART mmol/L -4 -3 -4 O2 SAT ART (JOELLE) % 97* 94 96* Imaging: CXR 05/09 pulmonary vascular congestion CXR 05/10 clear Other diagnostic tests: I have personally reviewed above laboratory findings, chest imaging, and diagnostic tests 05/11/2021 Assessment and Plan: Acute respiratory failure Acute MT w CAD s/p CABG x 4 on 05/04/21, past hx multiple stents Cardiogenic shock Cardiomyopathy EF 40% V fib Hx COPD Anemia Infiltrates: edema v pna, tracheal aspirate w yeast ?? Recs: Oxygen as required. Wean as tolerated Incentive spirometry abx coverage for pna Scheduled bronchodilators DC daily chest x-ray Chart reviewed F FORESTER * Anibal Lara MD - 05/11/2021 11:26 AM CST Hospitalist Progress Note Name: Deepak Alvarado Admission Date: 05/01/2021 Today's Date: 05/11/2021 Subjective: Pt seen and examined while in the ICU, Clinical course: Overall pt condition has improved. Pt will be transferred to 9th floor, had Osorio with blood urine and still on Dobutamine gtt 05/09: pt is on RA, still on Dobutamine gtt today 05/10: off Dobutamine gtt, new events noted ( had a near syncope/syncope episode at 2 am while trying to go the bathroom) 05/11: worsening hematuria noted, on 5L per NC Objective: Vitals: 05/10/21 2300 05/11/21 0000 05/11/21 0400 05/11/21 0723 BP: 160/90 114/64 108/96 BP Location: Right arm Right arm Right arm Patient Position: Lying Pulse: 91 74 88 90 Resp: 18 Temp: 36.5 ??C (97.7 ??F) 36.1 ??C (97 ??F) 36.7 ??C (98.1 ??F) TempSrc: Oral Oral Oral SpO2: 92% 97% 91% Weight: Height: Wt Readings from Last 3 Encounters: 05/09/21 79.8 kg (176 lb) 08/27/13 114.3 kg (252 lb) 10/19/12 111.6 kg (246 lb) I/O last 3 completed shifts: In: 1760 [P.O.:1760] Out: 2505 [Urine:1805; Emesis/NG output:700] No intake/output data recorded. Scheduled Meds Current Facility-Administered Medications Medication Dose Route Frequency Provider Last Rate Last Admin ??? acetaminophen (TYLENOL) tablet 650 mg 650 mg oral Q6H PRN Eleonora Duarte NP ? ? al & mag hydroxide epxuqyplagh-cgisavrsxkyktrz-jmqbtsqtb-nystatin (MAGIC MOUTHWASH) suspension 1-1-1-1 20 mL swish & spit Q4H PRN Tiana Spence NP 20 mL at 05/09/21 1815 ??? albuterol 2.5 mg /3 mL (0.083 %) nebulizer solution 2.5 mg 2.5 mg nebulization Q4H PRN (RT) Ralf Tomlinson MD ??? [START ON 05/12/2021] aspirin enteric coated tablet 81 mg 81 mg oral Daily Varsha Crowder NP ??? atorvastatin (LIPITOR) tablet 80 mg 80 mg oral Nightly Rhina Granados MD 80 mg at 05/10/212141 ??? [Held by Provider] clopidogreL (PLAVIX) tablet 75 mg 75 mg oral Daily Rhina Granados MD 75 mg at 05/10/21 0854 ??? dextrose oral liquid liquid 15 g 15 g oral Q15 Min PRN Rhina Granados MD Or ??? dextrose (D10W) 10% bolus 250 mL 250 mL intravenous Q15 Min PRN Rhina Granados MD ??? docusate sodium (COLACE) capsule 100 mg 100 mg oral BID Rhina Granados MD 100 mg at 05/11/21 1124 ??? [Held by Provider] enoxaparin (LOVENOX) syringe 40 mg 40 mg subcutaneous Daily-2100 Rhina Granados MD 40 mg at 05/10/212140 ??? glucagon injection 1 mg 1 mg intramuscular Q30 Min PRN Rhina Granados MD ??? guaiFENesin ER (MUCINEX) extended release tablet 600 mg 600 mg oral BID Tiana Spence NP 600 mg at 05/11/21 1123 ??? insulin glargine (LANTUS, SEMGLEE) 100 unit/mL injection 10 Units 10 Units subcutaneous NightlyRhina Granados MD 10 Units at 05/10/212126 ??? insulin lispro (HumaLOG, ADMELOG) 100 unit/mL injection 0-5 Units 0-5 Units subcutaneous Q4H Rhina Granados MD 2 Units at 05/11/21 0123 ??? metoprolol tartrate (LOPRESSOR) immediate release tablet 12.5 mg 12.5 mg oral BID Nalini Clayton MD ??? ondansetron (ZOFRAN) injection 4 mg 4 mg intravenous Q6H PRN Rhina Granados MD ??? oxyCODONE (ROXICODONE) tablet 5 mg 5 mg oral Q4H PRN Rhina Granados MD 5 mg at 05/11/21 1123 ??? pantoprazole DR (PROTONIX) extended release tablet 40 mg 40 mg oral Daily Rhina Granados MD40 mg at 05/11/21 1124 ??? piperacillin-tazobactam (ZOSYN) 3.375 g in sodium chloride 0.9% 100 mL IVPB 3.375 g [id number] [facility] Eleonora Duarte NP 200 mL/hr at 05/11/21 0506 3.375 g at 05/11/21 0506 ??? polyethylene glycol (MIRALAX) packet 17 g 17 g oral BID Rhina Granados MD 17 g at 05/10/21 2141 ??? potassium chloride ER (KLOR-CON) extended release tablet 20 mEq 20 mEq oral BID Ricardo Duarte NP 20 mEq at 05/11/21 1124 ??? QUEtiapine (SEROquel) tablet 25 mg 25 mg oral BID Eleonora Duarte NP 25 mg at 05/11/21 1124 ??? sodium chloride 0.9% flush 0.5-20 mL 0.5-20 mL intra-catheter Q8H [facility] Rhina Granados MD 10 mL at 05/11/21 0554 ??? acetaminophen ? ? al & mag hydroxide zgovfugosve-nesmljvnunxyvaq-vbwdibbwe-nystatin ??? albuterol ??? dextrose OR dextrose ??? glucagon ??? ondansetron ??? oxyCODONE Physical Exam: General: alert, cooperative, no distress, appears stated age HEENT: Head:normacephalic, Eyes: Perrla, EOMI bilaterally, nasal and oral mucosal pink and moist Heart: normal rate, regular rhythm, normal S1, S2, no murmurs, rubs, clicks or gallops Lungs: clear to auscultation, no wheezes or rales and unlabored breathing Abdomen: soft, nontender, nondistended, no masses or organomegaly Extremities: peripheral pulses normal, no pedal edema, no clubbing or cyanosis Neuro: alert, oriented x 3, no defects noted in general exam. Lab Data Laboratory review: Chemistry CMP: Lab Results Component Value Date BUNSER 24 05/11/2021 CALCIUM 8.8 05/11/2021 CO2 23 05/11/2021 CHLORIDE 95 (L) 05/11/2021 CREATININE 0.89 05/11/2021 GLUCOSE 172 05/11/2021 GLUCOSE 155 05/11/2021 POTASSIUM 3.5 05/11/2021 SODIUM 132 (L) 05/11/2021 , CBC: Lab Results Component Value Date WBC 17.3 (H) 05/11/2021 RBC 3.67 (L) 05/11/2021 HGB 11.1 (L) 05/11/2021 HCT 33.6 (L) 05/11/2021 MCV 91.6 05/11/2021 MCH 30.2 05/11/2021 MCHC 33.0 05/11/2021 RDWCV 13.3 05/11/2021 RDWSD 44.5 05/11/2021 MPV 11.4 05/11/2021 NRBCABS 0.00 05/11/2021 , Coags: No results found for: PT, PTT, APTT, FFN, FIBRINOGEN, INR, ACTIVATEDCL, Lipids: No resultsfound for: CHOL, CHLPL, HDL, LDLCALC, TRIG, CHOLHDL, Cardiac Enzymes: No results found for: CKTOTAL, CKMB, CKMBINDEX, TROPONINT and POC Glucose: Lab Results Component Value Date GLUCOSE 172 05/11/2021 GLUCOSE 155 05/11/2021 Home Medications have been reviewed and updated on pt's list Assessment and Plan Near syncope/Syncope episode, probable vaso vagal, monitor Acute anterior STEMI with CAD , s/p PCI to LAD -s/p CABG x 4 05/04 given re thrombosis of existing stents -s/p IABP, removed 05/06 - off Dobutamine gtt today -pt is on ASA, statins , added BBs , Plavix on hold due to hematuria ?? Post CABG cardiogenic shock - s/p fluid resuscitation , Levophed - off Dobutamine gtt today ?? Ventricular fibrillation - briefly on 05/03 - treated with Amiodarone ; now on Dobutamine ?? Gross Hematuria - in a pt with hx of cystoscopy, -clot evacuation and transurethral resection of bladder tumor at [facility] -s/p 20??German three way catheter, urine still bloody -holding Plavix and Lovenox -urology follows ?? Acute resp failure - self ext 05/05/21 -Lung infiltrates - pulm vascular congestion versus pneumonia -off Lasix due to hyponatremia, changed to Zosyn due to worsening Leukocytosis -today on 5L per NC -pulmonology follows ?? Type 2 diabetes.??- transitioned into SSI protocol And Lantus ?? Acute blood loss anemia ; -s/p PRBC transfusions in ICU -Hb today 11.1 monitor Mild hyponatremia, holding Lasix ?? Hx of Tobacco use. ?? Vitamin-D deficiency.- stable DVT prophylaxis :holding Lovenox due to worsening hematuria Pt will need continued inpatient management for the above medical issues. Code status: full Anibal Hughes MD [facility] Hospitalist 05/11/2021 11:26 AM F FORESTER * Sandee Paez, PT - 05/11/2021 10:51 AM CST Physical Therapy PT PROGRESS NOTE Deepak Alvarado 60 y.o. 1960 Past Medical History: Diagnosis Date ??? Chronic obstructive pulmonary disease (CMS/HCC) (HCC) COPD ??? Coronary artery disease ??? Diabetes mellitus (HCC) ??? H/O heart artery stent 2006 ??? Hypertension Hypertension ??? ST elevation (STEMI) myocardial infarction (HCC) 05/01/2021 No past surgical history on file. Patient Active Problem List Diagnosis ??? ST elevation myocardial infarction (STEMI) (HCC) Continued hematuria with possible plan for cystoscopy. ([id number] - too painful - returned at later time for pain medication administration) TIME IN: 1150 TIME OUT: 1214 SUBJECTIVE States he is in severe bladder pain from catheter. States , 'I just can't do it'. Return at later time to allow pain meds to take control. After receiving Oxycodone, states, 'well , i'll try. I don'tknow how much I will be able to do. The pain medicine only helped a little'. MENTAL STATUS/ORIENTATION: A and O x 3, repeatedly states year is 2000 PAIN: Pre-therapy pain level: 8/10 Pain location: bladder/osorio Pain intervention: PT session rescheduled, RN brought oxycodone Post-therapy pain level/response to intervention: 01/27 OBJECTIVE PRECAUTIONS: fall, sternal, cardiac APPEARANCE/POSTURE: Patient lying in bed with O2 via nasal cannula, osorio catheter. VITAL SIGNS: Resting BP: 109/68 Post-activity BP: Resting heart rate: 87 Post-activity heart rate: 93 Resting O2 sat: 91% Post-activity O2 sat: 92% 4L O2 MOBILITY DOCUMENTATION: Bed Mobility/Transfers: supine to sit with mod assist, sit to/from stand and bed to chair with mod assist. Gait: does not tolerate gait this date secondary to severe bladder pain and activity tolerance. Steps 3 steps to chair with mod assist, fair balance. TREATMENT: Activity as above. Performed bilateral LE ankle pumps, LAQs, hip ER/IR, partial hip flexion (limited due to pain) 10 reps with SBA. Also performed 10 reps of incentive spirometry with max assist APPEARANCE/POSTURE (end of session): patient positioned in chair with call light and chair alarm. RN Cale aware of session. EDUCATION: Importance of activity, sternal precautions. RESPONSE TO EDUCATION: needs reinforcement ASSESSMENT Activity tolerance/response to P.T.: poor tolerance secondary to pain Barriers to learning: Physical, Cognitive, Emotional and Motivation Barriers to discharge: Pain, Cognitive deficit, Limited participation, Decreased endurance and Medical complications Patient continues progressing toward previously set goals which remain appropriate at this time. PLAN Patient to be seen for P.T. 3-5 times per week to address previously established deficits and goals. DISCHARGE LOCATION RECOMMENDATIONS: CARE HOME FACILITY or inpatient rehab, but per CT surgeryNP refusing to consider either of these options, patient only wants to go home. If this is the last note, please consider this the discharge summary. F FORESTER * Nalini Clayton MD - 05/11/2021 10:32 AM CST [facility] - Cardiology [facility] Progress Note Admit Date: 05/01/2021 5:20 PM @LEIGH@ PCP: Unknown, Notinfile Patient seen and examined Chart , telemtry reviewed Symptoms Patient denies chest pain, dyspnea, palpitations, sweating or syncope. Data Vitals: 05/10/21 2300 05/11/21 0000 05/11/21 0400 05/11/21 0723 BP: 160/90 114/64 108/96 BP Location: Right arm Right arm Right arm Patient Position: Lying Pulse: 91 74 88 90 Resp: Temp: 36.5 ??C (97.7 ??F) 36.1 ??C (97 ??F) 36.7 ??C (98.1 ??F) TempSrc: Oral Oral Oral SpO2: 92% 97% 91% Weight: Height: Intake/Output Summary (Last 24 hours) at 05/11/2021 1032 Last data filed at 05/11/2021 0506 Gross per 24 hour Intake 480 ml Output 1255 ml Net -775 ml Lab Results Component Value Date WBC 17.3 (H) 05/11/2021 WBC 21.2 (H) 05/10/2021 WBC 16.0 (H) 05/09/2021 HGB 11.1 (L) 05/11/2021 HGB 12.4 (L) 05/10/2021 HGB 11.4 (L) 05/09/2021 HCT 33.6 (L) 05/11/2021 HCT 37.7 (L) 05/10/2021 HCT 34.9 (L) 05/09/2021 Lab Results Component Value Date SODIUM 132 (L) 05/11/2021 SODIUM 129 (L) 05/10/2021 SODIUM 131 (L) 05/09/2021 POTASSIUM 3.5 05/11/2021 POTASSIUM 3.6 05/10/2021 POTASSIUM 3.7 05/09/2021 CHLORIDE 95 (L) 05/11/2021 CHLORIDE 90 (L) 05/10/2021 CHLORIDE 92 (L) 05/09/2021 CO2 23 05/11/2021 CO2 25 05/10/2021 CO2 26 05/09/2021 CREATININE 0.89 05/11/2021 CREATININE 0.91 05/10/2021 CREATININE 0.78 (L) 05/09/2021 GLUCOSE 172 05/11/2021 GLUCOSE 155 05/11/2021 GLUCOSE 148 05/11/2021 GLUCOSE 234 (H) 05/11/2021 GLUCOSE 187 05/10/2021 GLUCOSE 174 05/09/2021 CALCIUM 8.8 05/11/2021 CALCIUM 9.4 05/10/2021 CALCIUM 9.4 05/09/2021 No results found for: PTT No results found for: PT No results found for: INR No results found for: BNP No components found for: TROPONIN No results found for: CHOL, TRIG, HDL, LDLCALC No results found for: ALBUMIN, ALKPHOS, ALT, AST No components found for: MAGMGDL No results found for: TSH No results found for: T3FREE No results found for: [id number] Pain Assessment: Sleeping Pain Interventions: Medication (See MAR) Response to Interventions: Full pain relief Meds MEDICATIONS FOR CURRENT ENCOUNTER: SCHEDULED MEDICATIONS: Scheduled Medications Medication Dose Route Frequency ??? aspirin chewable tablet 324 mg 324 mg oral Daily ??? atorvastatin (LIPITOR) tablet 80 mg 80 mg oral Nightly ??? [Held by Provider] clopidogreL (PLAVIX) tablet 75 mg 75 mg oral Daily ??? docusate sodium (COLACE) capsule 100 mg 100 mg oral BID ??? enoxaparin (LOVENOX) syringe 40 mg 40 mg subcutaneous Daily-2100 ??? guaiFENesin ER (MUCINEX) extended release tablet 600 mg 600 mg oral BID ??? insulin glargine (LANTUS, SEMGLEE) 100 unit/mL injection 10 Units 10 Units subcutaneous Nightly ??? insulin lispro (HumaLOG, ADMELOG) 100 unit/mL injection 0-5 Units 0-5 Units subcutaneous Q4H ??? pantoprazole DR (PROTONIX) extended release tablet 40 mg 40 mg oral Daily ??? piperacillin-tazobactam (ZOSYN) 3.375 g in sodium chloride 0.9% 100 mL IVPB 3.375 g [id number] LEAH ??? polyethylene glycol (MIRALAX) packet 17 g 17 g oral BID ??? potassium chloride ER (KLOR-CON) extended release tablet 20 mEq 20 mEq oral BID ??? QUEtiapine (SEROquel) tablet 25 mg 25 mg oral BID ??? sodium chloride 0.9% flush 0.5-20 mL 0.5-20 mL intra-catheter Q8H LEAH ?? CONTINUOUS MEDICATIONS: Continuous Medications Medication Dose Last Rate ? PRN MEDICATIONS: PRN Medications Medication Dose Route Frequency Last Admin ??? acetaminophen (TYLENOL) tablet 650 mg 650 mg oral Q6H PRN ? ? al & mag hydroxide gaqwbbecygm-ynpimmdbvoyalan-iqwdvqgnr-nystatin (MAGIC MOUTHWASH) suspension 1-1-1-1 20 mL swish & spit Q4H PRN 20 mL at 05/09/21 1815 ??? albumin 5 % bottle 12.5 g 12.5 g intravenous Q15 Min PRN 12.5 g at 05/04/21 2300 ??? albuterol 2.5 mg /3 mL (0.083 %) nebulizer solution 2.5 mg 2.5 mg nebulization Q4H PRN (RT) ??? dextrose oral liquid liquid 15 g 15 g oral Q15 Min PRN Or ??? dextrose (D10W) 10% bolus 250 mL 250 mL intravenous Q15 Min PRN ??? glucagon injection 1 mg 1 mg intramuscular Q30 Min PRN ??? ondansetron (ZOFRAN) injection 4 mg 4 mg intravenous Q6H PRN ??? oxyCODONE (ROXICODONE) tablet 5 mg 5 mg oral Q4H PRN 5 mg at 05/10/21 2141 Allergies Allergen Reactions ??? Metoclopramide Review of Systems: All systems were reviewed. Pertinent positives are mentioned above. Exam General appearance: alert, cooperative, no distress Neck: No JVD. No carotid Bruit Chest: Decreased air entry bilaterally,few basal crepts Cardiovascular: regular rate, rhythm, normal S1 and S2, without rub, gallops or murmur Abdomen: soft without mass, non-tender, with normal bowel sounds Extremities: no clubbing, cyanosis or edema. Peripheral pulse palpable Assessment /Plan Coronary artery disease -s/p CABG post STEMI -??underwent four-vessel bypass ??MAE to the LAD, sequential saphenous vein graft to diagonal and obtuse marginal and a vein graft to the PDA. -Off dobutamine ??Diuretics stopped because of hyponatremia No recurrence of syncope check orthostyatics Moderate LV dysfunction -??-Started Beta blockers to get POLINA from am. -repeat ECHO 05/07 EF 42% (see above) ??Discussed with CTS ??Nonsustained ventricular tachycardia -no recurrence of VT -K 3.7, Mg 2.0. ??Supplement to keep K >/= 4.0, Mg >/= 2.0 ?Diabetes mellitus -?on lantus and SSI ?? COPD: ?? -on?O2 NC 2 L ?? Dyslipidemia -?Continue atorvastatin. ?PAD -?Stable ? Recent bladder tumor removal: ?? -??Urology is following.H/H stable ?? Anemia -Hb??11.4 (10.5) (8.6) -monitor ?? Oral mucositis -no evidence of thrush on exam - my mouth and tongue are raw and hurt -magic mouthwash PRN ?? Nalini Clayton MD F FORESTER F FORESTER * Yves Weinberg MD - 05/11/2021 10:22 AM CST Nephrology Progress Note [facility] SUBJECTIVE Doing fair. Some flank pain and mild dyspnea. Na better. BP up. OBJECTIVE Vitals: Vitals: 05/10/21 2300 05/11/21 0000 05/11/21 0400 05/11/21 0723 BP: 160/90 114/64 108/96 BP Location: Right arm Right arm Right arm Patient Position: Lying Pulse: 91 74 88 90 Resp: 18 20 18 Temp: 36.5 ??C (97.7 ??F) 36.1 ??C (97 ??F) 36.7 ??C (98.1 ??F) TempSrc: Oral Oral Oral SpO2: 92% 97% 91% Weight: Height: Intake/Output Summary (Last 24 hours) at 05/11/2021 1022 Last data filed at 05/11/2021 0506 Gross per 24 hour Intake 480 ml Output 1255 ml Net -775 ml REVIEW OF SYSTEMS Review of Systems Constitutional: Negative. HENT: Negative. Eyes: Negative. Respiratory: Negative. Cardiovascular: Negative. Gastrointestinal: Negative. Genitourinary: Negative. Musculoskeletal: Negative. Skin: Negative. Allergic/Immunologic: Negative. Hematological: Negative. All other systems reviewed and are negative. PHYSICAL EXAM Physical Exam Constitutional: Appears well-developed. HENT: wnl Head: Normocephalic. Eyes: Pupils are equal, round, and reactive to light. Neck: Normal range of motion. Neck supple. Cardiovascular: Normal rate. Pulmonary/Chest: Effort normal and breath sounds normal. Abdominal: Soft. Musculoskeletal: Normal range of motion. Neurological: Alert, oriented. Skin: Skin is warm. Nursing note and vitals reviewed. MEDICATIONS Current Facility-Administered Medications: ??? acetaminophen (TYLENOL) tablet 650 mg, 650 mg, oral, Q6H PRN, Eleonora Duarte, EFREN ? ? al & mag hydroxide vexzriqimpm-xckbokhfkcclnfw-opobrmhii-nystatin (MAGIC MOUTHWASH) suspension 1-1-1-1, 20 mL, swish & spit, Q4H PRN, Tiana Spence NP, 20 mL at 05/09/21 1815 ??? albumin 5 % bottle 12.5 g, 12.5 g, intravenous, Q15 Min PRN, Rhina Granados MD, 12.5 g at 05/04/21 2300 ??? albuterol 2.5 mg /3 mL (0.083 %) nebulizer solution 2.5 mg, 2.5 mg, nebulization, Q4H PRN (RT),Ralf Tomlinson MD ??? aspirin chewable tablet 324 mg, 324 mg, oral, Daily, Rhina Granados MD, 324 mg at 05/10/21 0853 ??? atorvastatin (LIPITOR) tablet 80 mg, 80 mg, oral, Nightly, Rhina Granados MD, 80 mg at 05/10/21 2142 ??? [Held by Provider] clopidogreL (PLAVIX) tablet 75 mg, 75 mg, oral, Daily, Rhina Granados MD, 75 mg at 05/10/21 0854 ??? dextrose oral liquid liquid 15 g, 15 g, oral, Q15 Min PRN OR dextrose (D10W) 10% bolus 250 mL, 250 mL, intravenous, Q15 Min PRN, Rhina Granados MD ??? docusate sodium (COLACE) capsule 100 mg, 100 mg, oral, BID, 100 mg at 05/10/212141 OR [DISCONTINUED] docusate (COLACE) 10 mg/mL oral liquid 100 mg, 100 mg, feeding tube, BID, Rhina Granados MD, 100 mg at 05/05/21 0842 ??? enoxaparin (LOVENOX) syringe 40 mg, 40 mg, subcutaneous, Daily-2100, Rhina Granados MD, 40 mg at 05/10/212140 ??? glucagon injection 1 mg, 1 mg, intramuscular, Q30 Min PRN, Rhina Granados MD ??? guaiFENesin ER (MUCINEX) extended release tablet 600 mg, 600 mg, oral, BID, Tiana Spnece NP, 600 mg at 05/10/212141 ??? insulin glargine (LANTUS, SEMGLEE) 100 unit/mL injection 10 Units, 10 Units, subcutaneous, Nightly, Rhina Granados MD, 10 Units at 05/10/212126 ??? insulin lispro (HumaLOG, ADMELOG) 100 unit/mL injection 0-5 Units, 0-5 Units, subcutaneous, Q4H, Rhina Granados MD, 2 Units at 05/11/21 0123 ??? ondansetron (ZOFRAN) injection 4 mg, 4 mg, intravenous, Q6H PRN, Rhina Granados MD ??? oxyCODONE (ROXICODONE) tablet 5 mg, 5 mg, oral, Q4H PRN, Rhina Granados MD, 5 mg at 05/10/212140 ??? pantoprazole DR (PROTONIX) extended release tablet 40 mg, 40 mg, oral, Daily, Rhina Granados MD, 40 mg at 05/10/21 0856 ??? piperacillin-tazobactam (ZOSYN) 3.375 g in sodium chloride 0.9% 100 mL IVPB, 3.375 g, intravenous, Q6H LEAH, Elenoora Duarte NP, Last Rate: 200 mL/hr at 05/11/21 0506, 3.375 g at 05/11/21 0506 ??? polyethylene glycol (MIRALAX) packet 17 g, 17 g, oral, BID, Rhina Granados MD, 17 g at 05/10/212140 ??? potassium chloride ER (KLOR-CON) extended release tablet 20 mEq, 20 mEq, oral, BID, Eleonora Duarte NP, 20 mEq at 05/10/212141 ??? QUEtiapine (SEROquel) tablet 25 mg, 25 mg, oral, BID, Eleonora Duarte NP, 25 mg at 05/10/212141 ??? sodium chloride 0.9% flush 0.5-20 mL, 0.5-20 mL, intra-catheter, Q8H Darwin LYNN Nabil A., MD, 10 mL at 05/11/21 0554 Lab/Radiology/Diagnostic Review: Recent Results (from the past 24 hour(s)) POCT glucose Collection Time: 05/10/21 12:24 PM Result Value Ref Range Glucose, POC 207 (H) 70 - 199 mg/dL POCT glucose Collection Time: 05/10/21 4:13 PM Result Value Ref Range Glucose, POC 209 (H) 70 - 199 mg/dL POCT glucose Collection Time: 05/10/21 9:26 PM Result Value Ref Range Glucose, POC 231 (H) 70 - 199 mg/dL POCT glucose Collection Time: 05/11/21 1:22 AM Result Value Ref Range Glucose, POC 234 (H) 70 - 199 mg/dL POCT glucose Collection Time: 05/11/21 5:05 AM Result Value Ref Range Glucose, POC 148 70 - 199 mg/dL Basic metabolic panel Collection Time: 05/11/21 6:11 AM Result Value Ref Range Sodium 132 (L) 135 - 145 mmol/L Potassium, pl 3.5 3.3 - 4.9 mmol/L Chloride 95 (L) 97 - 110 mmol/L CO2 23 22 - 32 mmol/L Anion gap 14 2 - 15 mmol/L BUN 24 8 - 25 mg/dL Creatinine 0.89 0.80 - 1.30 mg/dL Glucose 155 70 - 199 mg/dL Calcium 8.8 8.5 - 10.3 mg/dL CBC without differential Collection Time: 05/11/21 6:11 AM Result Value Ref Range WBC 17.3 (H) 3.8 - 9.9 K/cumm Hgb 11.1 (L) 13.0 - 17.5 g/dL Hct 33.6 (L) 38.9 - 50.3 % Plt 330 150 - 400 K/cumm MPV 11.4 9.1 - 12.3 fL RBC 3.67 (L) 4.30 - 5.80 M/cumm MCV 91.6 81.3 - 96.4 fL MCH 30.2 27.1 - 33.3 pg MCHC 33.0 32.3 - 35.7 g/dL RDW CV 13.3 11.1 - 14.9 % RDW SD 44.5 35.7 - 48.1 fL NRBC abs 0.00 0.00 - 0.01 K/cumm Phosphorus Collection Time: 05/11/21 6:11 AM Result Value Ref Range Phosphorus, pl 3.5 2.3 - 4.5 mg/dL Magnesium Collection Time: 05/11/21 6:11 AM Result Value Ref Range Magnesium 1.8 1.4 - 2.5 mg/dL eGFR Collection Time: 05/11/21 6:11 AM Result Value Ref Range eGFR 94 mL/min/1.73 m2 POCT glucose Collection Time: 05/11/21 8:59 AM Result Value Ref Range Glucose, POC 172 70 - 199 mg/dL XR Chest 1 View - Portable - in AM Result Date: 05/11/2021 Narrative: EXAMINATION: XR CHEST 1 VIEW HISTORY: The patient is a 60-year-old male who has had cardiac surgery. Comparison made with the previous study dated 05/10/2021. TECHNIQUE: AP portable view of the chest. FINDINGS: Lungs clear. Heart not enlarged. Aortic atherosclerosis. No failure. The right IJ [place] catheter has been retracted with its tip in the distal superior vena cava. Impression: IMPRESSION: No failure. Electronically signed by: Elvira Blackman M.D. XR Chest 1 View - Portable - in AM Result Date: 05/10/2021 Narrative: EXAMINATION: XR CHEST 1 VIEW DATE: 05/10/2021 2:40 AM COMPARISON: 05/09/2021 HISTORY: 60-year-old man cardiac surgery follow-up FINDINGS:Compared with study the previous day, significant improvement. There is cardiomegaly with postsurgical changes with continued and decreasing failure. Bibasilar atelectasis with left pleural fluid decreasing. No pneumothorax. [place] catheter remainsin place Impression: Decreasing failure, atelectasis and left effusion. Electronically signed by: Deandre Lomeli M.D. XR Chest 1 View - Portable - in AM Result Date: 05/09/2021 Narrative: EXAMINATION: XR CHEST 1 VIEW DATE: 05/09/2021 4:10 AM HISTORY: 60-year-old man cardiac surgery follow-up FINDINGS:Compared with study the previous day, significant improvement. There is cardiomegaly with postsurgical changes with continued but decreasing failure. Bibasilar atelectasis with left pleural fluid decreasing. No pneumothorax. [place] catheter remains in place Impression: Decreasing failure, atelectasis and left effusion. Electronically signed by: Deandre Lomeli M.D. XR Chest 1 View - Portable - in AM Result Date: 05/08/2021 Narrative: EXAMINATION: XR CHEST 1 VIEW DATE: 05/08/2021 4:15 AM HISTORY: 60-year-old man cardiac surgery follow-up FINDINGS:Compared with study the previous day, significant improvement. There is cardiomegaly with postsurgical changes with continued but decreasing failure. Bibasilar atelectasis with left pleural fluid. No pneumothorax. [place] catheter remains in place Impression: Decreasing failure. No pneumothorax. Electronically signed by: Deacon Cummings M.D. XR Chest 1 View - Portable - in AM Result Date: 05/07/2021 Narrative: EXAMINATION: XR CHEST 1 VIEW DATE: 05/07/2021 3:55 AM HISTORY: 60-year-old man follow-upcardiac surgery FINDINGS:Compared with study of the previous day, postsurgical changes in the heartand mediastinum with cardiomegaly are stable. [place] catheter remains in place. Left thoracostomy tube remains in place. No pneumothorax. Pulmonary vascular congestion with interstitial lung disease remain prominent. Impression: Persistent prominent interstitial lung disease with failure. Electronically signed by: Deacon Cummings M.D. XR Chest 1 View - Portable - in AM Result Date: 05/06/2021 Narrative: EXAMINATION: XR CHEST 1 VIEW DATE: 05/06/2021 4:05 AM INDICATION: Cardiac surgery. COMPARISON: 05/05/2021. FINDINGS: No pneumothorax or pleural effusion. Similar-appearing pulmonary vascular congestion and interstitial opacities most notable in the bilateral upper lobes consistent with pulmonary edema. Pulmonary catheter catheter, left thoracostomy tube, and mediastinal drain are appropriately position. Intra-aortic balloon pump is appropriately positioned. Interval removal of endotracheal tube. Impression: 1. Interval removal of endotracheal tube. Remaining tubes and lines are appropriately positioned. 2. Similar-appearing cardiomegaly, pulmonary vascular congestion, and prominent bilateralinterstitial markings suggestive of interstitial pulmonary edema. Electronically signed by: Richard Zhao II, D.O. XR Chest 1 View - Portable - in AM Result Date: 05/05/2021 Narrative: EXAMINATION: XR CHEST 1 VIEW DATE: 05/05/2021 4:15 AM HISTORY: 60-year-old man cardiac surgery follow-up FINDINGS:Compared with the study of the prior day, tubes and catheters remain satisfactorily positioned. Worsening pulmonary vascular congestive changes are seen. Cardiomegaly with postsurgical changes stable. No pneumothorax. Impression: Increasing failure. Electronically signed by: Deacon Cummings M.D. XR Chest 1 Vw Portable Result Date: 05/05/2021 Narrative: EXAMINATION: XR CHEST 1 VIEW DATE: 05/04/2021 8:40 PM HISTORY: 60-year-old man coronary artery bypass follow-up FINDINGS:Compared with the study of earlier the same day, postsurgical changes now evident within the heart and mediastinum with cardiomegaly. Interval placement of endotracheal tube, nasogastric tube, [place] catheter, left thoracostomy tube and mediastinal drain all in satisfactory position. No pneumothorax. Interstitial lung disease with mild pulmonary vascular congestive changes. Aortic balloon pump is no longer seen. Impression: Tube placements with postsurgical changes with cardiomegaly with interstitial lung disease and mild failure with no pneumothorax. Electronically signed by: Deacon Cummings M.D. XR Chest 1 Vw Portable Result Date: 05/04/2021 Narrative: EXAMINATION: XR CHEST 1 VIEW DATE: 05/04/2021 9:05 AM HISTORY: Coronary artery disease FINDINGS:Comparison is made with study of 2 days earlier. Cardiomegaly, COPD with interstitial lung disease stable. Mild failure. Aortic balloon pump stable in position at the proximal descending aorta. No pneumothorax. No new infiltrates. Impression: Stable appearance. COPD cardiomegaly, with mild failure suspected. Electronically signed by: Deacon Cummings M.D. XR Chest 1 Vw Portable Result Date: 05/02/2021 Narrative: EXAMINATION: XR CHEST 1 VIEW DATE: 05/02/2021 5:15 AM INDICATION: Intra-aortic balloon pump. COMPARISON: 05/01/2021. FINDINGS: Appropriately positioned intra-aortic balloon pump appears unchanged. No pneumothorax or pleural effusion. Mixed reticular and alveolar opacities demonstrated inall lung lobes appear most significant in the upper lobes and perihilar regions, unchanged. Impression: 1. Appropriately positioned intra-aortic balloon pump. 2. Similar mixed reticular and alveolar opacities most notable in the bilateral upper lobes and perihilar region. Electronically signed by: Richard Lopez II, D.O. XR Chest 1 Vw Portable Result Date: 05/02/2021 Narrative: EXAMINATION: XR CHEST 1 VIEW DATE: 05/01/2021 8:15 PM INDICATION: Hypoxia. COMPARISON: None. FINDINGS: No pneumothorax. No pleural effusion. Mixed reticular and alveolar opacities are demonstrated in all lung lobes but demonstrate an upper lobe and perihilar predominance. Findings may represent pulmonary edema on background of centrilobular emphysematous changes. Underlying infectious process not entirely excludable. Cardiac mediastinal silhouette is stable in appearance. No acute osseous abnormality. Impression: Mixed reticular and alveolar opacities are demonstrated in all lung lobes but demonstrate an upper lobe and perihilar predominance. Findings may represent pulmonary edema on background ofcentrilobular emphysematous changes. Electronically signed by: Richard Lopez II, D.O. Transthoracic Echo (TTE) Limited Result Date: 05/07/2021 Narrative: [place] [address] Limited Echocardiogram Report Patient Name: DEEPAK ALVARADO : 1960 StudyDate: 05/07/2021 12:16:52 PM Gender: M Tech: Location: [place] [address] Ref.Provider: RHINA GRANADOS Height(Cm): 175 BSA: 2.1 Weight(Kg): 91 Heart Rate: 82 BP: 127/44 Quality: Good Order Provider: Dr. Sutton Procedures: Echocardiographic Report: Limited transthoracic echocardiogram with 2D and M-Mode. Measurements: 2D/M Mode Measurement Value Normal Range LVIDd 2D 3.43 [ 4.20 -5.90 ] cm LVIDs 2D 2.59 [ 2.30 - 3.90 ] cm LVPWd 2D 1.01 [ 0.60 - 1.00 ] cm IVSd 2D 0.71 [ 0.60 - 0.90 ] cm Findings: Left Ventricle: Reduced left ventricular cavity size. Mild global left ventricular systolic dysfunction. Ejection fraction is measured at 42 %. These segments of the LV are hypokinetic: apical anterior segment. Pericardium: Trivial pericardial effusion. No echocardiographic evidence to suggest pericardial tamponade. Conclusions: Reduced left ventricular cavity size. Mild globalleft ventricular systolic dysfunction. Ejection fraction is measured at 42 %. These segments of theLV are hypokinetic: apical anterior segment. Trivial pericardial effusion. No echocardiographic evidence to suggest pericardial tamponade. Electronically Signed By: Gianni Francois MD, [facility] 2021-05-07 12:54:09 STAFF FORESTER Transthoracic Echo Complete W Doppler/CF Result Date: 05/02/2021 Narrative: [place] [address] Echocardiogram Report Patient Name: DEEPAK ALVARADO W : 1960 Study Date: 05/02/2021 8:50:02 AM Gender: M Tech: Location: [place] [address] Ref Provider: NALINI CLAYTONHeight(Cm): 175 BSA: 2.11 Weight(Kg): 92 Heart Rate: 89 BP: 102/52 Quality: Good Order Provider: NALINI CLAYTON PROCEDURES: Echocardiographic Report: Transthoracic echocardiogram with complete 2D, M-Mode, and color Doppler examination. INDICATIONS: Free Text. Measurements: 2D/M Mode DopplerMeasurement Value Normal Range Measurement Value Normal Range EF Teich 2D 30.0 [ 55.0 - 70.0 ] percent CHRISTINA Vmax 2.04 [ 2.00 - 4.00 ] cm2 EF Mod 4C 42.2 [ 55.0 - 70.0 ] percent AV Mean PG 5 [ 2 - 4 ]mmHg LVIDd 2D 4.54 [ 4.20 - 5.90 ] cm AV Peak Ramesh 1.54 [ 1.00 - 1.70 ] m/s LVIDs 2D 3.91 [ 2.30 - 3.90 ] cm AV VTI 26.93 cm LVPWd 2D 0.92 [ 0.60 - 1.00 ] cm LVOT Diam 2.20 [ 1.70 - 2.10 ] cm IVSd 2D0.76 [ 0.60 - 0.90 ] cm LVOT Peak Ramesh 0.83 [ 0.70 - 1.10 ] m/s LA Dimension MM 5.08 [ 3.00 - 4.00 ]cm LVOT VTI 13.82 [ 20.00 - 30.00 ] cm AoR Diam MM 4.12 [ 2.60 - 3.70 ] cm MV E Peak Ramesh 0.85 [ 0.60 - 1.30 ] m/s LA Volume Index 20.83 [ 16.00 - 28.00 ] cc/m2 MV A Peak Ramesh 1.14 [ 1.00 - 1.20 ] m/s ACS MM 1.91 [ 1.50 - 2.60 ] cm MV Mean PG 1 [ <= 5 ] mmHg MV PHT 43 [ 20 - 100 ] msec MVA 2.20 MV Decel Time 137 [ 104 - 258 ] msec PV Peak Ramesh 1.10 [ 0.40 - 0.80 ] m/s TR Peak Ramesh 1.32 [ 1.00 -2.80 ] m/s TR Peak PG 7 mmHg RVSP 16.93 [ 10.00 - 36.00 ] mmHg E' 0.06 E/E' 14.00 Measurement Value Normal Range Measurement Value Normal Range 2D/M Mode Doppler - FINDINGS: Atrial Septum: Normal atrial septum. Left Ventricle: Normal left ventricular size. Left ventricle not well visualized. There is severe hypokinesis of the mid anteroseptal, anterior, and apical mancilla. Normal left ventricular wall thickness. Impaired diastolic relaxation Grade I. Ejection fraction is visually estimated at 40 %. Left Atrium: The left atrium is normal in size. Right Ventricle: Normal right ventricular size. Normal right ventricular systolic function. Right Atrium: The right atrium is normal in size. Aortic Valve: Normal structure of the aortic valve. No evidence of hemodynamically significant aortic stenosis by Doppler. No aortic regurgitation. Mitral Valve: Normal structure of the mitral valve. Trivial regurgitation of the mitral valve. Pulmonic Valve: Pulmonic valve not well visualized. Trivial re gurgitation in the pulmonic valve. Tricuspid Valve: Normal structure of the tricuspid valve. Trivial regurgitation in the tricuspid valve. Pericardium: Normal pericardium with no significant pericardial effusion. Aorta: Normal aortic root. IVC: Normal size and normal respiratory collapse consistentwith normal right atrial pressure (<5 mmHg). CONCLUSIONS: Technically difficult study with limited views. Normal left ventricular size. Left ventricle not well visualized. There is severe hypokinesis of the mid anteroseptal, anterior, and apical mancilla. Normal left ventricular wall thickness. Impaired diastolic relaxation Grade I. Ejection fraction is visually estimated at 40 %. Normal right ventricular size. Normal right ventricular systolic function. Normal structure of the mitral valve. Trivial regurgitation of the mitral valve. Normal structure of the tricuspid valve. Trivial regurgitation in the tricuspid valve. Electronically Signed By: Rylee Brito DO, GRETCHEN, [place] 2021-05-02 14:07:25 STAFF FORESTER CC: CC: CC: ASSESSMENT/PLAN Hyponatremia from SIADH and possibly from zaroxylyn use. Work up for hyponatremia will be ordered. PO FR. DC Zaroxylyn. No normotonic fluids yet. Urine lytes and osm. If in clinical fluid overload, may use tolvaptan. Renal fn is normal. Na better. ?? Recent bladder tumor removal with hematuria. ?? -??Urology is following.H/H stable ?? Hypokalemia from diuresis. Replace PRN. ?? 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 ?? Syncopal episode -(+) orthostasis -receiving albumin -IV lasix was discontinued. ??There is a 1x order for zaroxolyn 10mg this am- recommend holding fornow. ??D/w RN ?? Coronary artery disease -s/p CABG post STEMI -??underwent four-vessel bypass ??MAE to the LAD, sequential saphenous vein graft to diagonal and obtuse marginal and a vein graft to the PDA. -s/p??low dose dobutamine -paced rhythm -??IV??diuretics??discontinued d/t syncopal episode today (see above) ?? Moderate LV dysfunction -s/p IV??lasix??and??low dose??dobutamine -Beta blockers, ??[place] once off dobutamine-would hold off adding given syncopal episode this am -repeat ECHO 05/07 EF 42% (see above) ?Nonsustained ventricular tachycardia -no recurrence of VT -K 3.7, Mg??2.0. ??Supplement to keep K >/= 4.0, Mg >/= 2.0 ?Diabetes mellitus -?on lantus and SSI ?? COPD: ?? -on?O2 NC??4L (dried blood to L nare humidified o2 ordered) ?? Dyslipidemia -?Continue atorvastatin. ?PAD -?Stable ? Anemia -Hb??11.4 (10.5)??(8.6) -monitor ?? I can be reached at [phone] with any concerns. Thank you Nalini Clayton MD for the consult. Yves Weinberg MD [employer] [phone] F FORESTER * Varsha Crowder NP - 05/11/2021 9:30 AM CST Cardiothoracic Surgery Progress Note Deepak Alvarado 1960 Hospital DAY#10 7 Days Post-Op s/p: Procedures: * Coronary artery bypass grafting x4, placement of left QUINN to the LAD, saphenous vein graft to thediagonal artery and obtuse marginal in a sequential fashion, saphenous vein graft to the PDA- Munkh Subjective: Patient resting in bed on 4L NC. Denies significant shortness of breath or pain. Appears alert and oriented but wanting to discharge home. Osorio in place with bloody urine, urology consulted for possible cystoscopy. Explained to patient that he needs further workup for hematuria, pacer wires removed and decreased O2 requirements prior to discharge. OBJECTIVE: Vitals: Temp: [36.1 ??C (97 ??F)-36.9 ??C (98.5 ??F)] 36.7 ??C (98.1 ??F) Pulse: [74-94] 90 BP: (105-160)/(64-96) 108/96 Resp: [18-20] 18 SpO2: [91 %-100 %] 91 % Wt Readings from Last 3 Encounters: 05/09/21 79.8 kg (176 lb) 08/27/13 114.3 kg (252 lb) 10/19/12 111.6 kg (246 lb) I/O last 2 completed shifts: In: 720 [P.O.:720] Out: 1455 [Urine:755; Emesis/NG output:700] NET -760ml for 24 hours -8680 for stay Physical Exam HENT: Mouth/Throat: Mouth: Mucous membranes are moist. Eyes: Pupils: Pupils are equal, round, and reactive to light. Cardiovascular: Rate and Rhythm: Normal rate and regular rhythm. Pulses: Normal pulses. Heart sounds: Normal heart sounds. Comments: HR Sr 95 VVI Back up - pw taped and secure Pulmonary: Effort: Pulmonary effort is normal. Breath sounds: Normal breath sounds. Genitourinary: Comments: Osorio- dark blood tinged urine Musculoskeletal: General: Normal range of motion. Right lower leg: No edema. Left lower leg: No edema. Skin: Comments: Sternum covered with silver Saph sites steristipped HOME CARE PROVIDER Neurological: General: No focal deficit present. Mental Status: He is alert and oriented to person, place, and time. Psychiatric: Behavior: Behavior normal. Access: central line Recent Labs Lab Units 05/11/21 0611 05/10/21 0502 05/09/21 0612 WBC K/cumm 17.3* 21.2* 16.0* HEMOGLOBIN g/dL 11.1* 12.4* 11.4* HEMATOCRIT % 33.6* 37.7* 34.9* PLATELETS K/cumm 330 344 294 Recent Labs Lab Units 05/11/21 0611 05/10/21 0502 05/09/21 0612 SODIUM mmol/L 132* 129* 131* POTASSIUM PLASMA mmol/L 3.5 3.6 3.7 CHLORIDE mmol/L 95* 90* 92* CO2 mmol/L 23 25 26 BUN SERUM mg/dL 24 23 17 CREATININE mg/dL 0.89 0.91 0.78* CALCIUM mg/dL 8.8 9.4 9.4 Recent Labs Lab Units 05/05/21 0021 05/04/21 2135 PROTIME (PT) sec 14.4* 14.8* INR 1.3* 1.3* APTT sec 33 30 Recent Labs Lab Units 05/05/21 1605 05/05/21 1204 05/05/21 1015 PH ART 7.43 7.44 7.45 PCO2 ART mmHg 29* 30* 29* PO2 ART mmHg 82* 66* 75* BASE EXC ART mmol/L -4 -3 -4 Imaging: Today's CXR no significant pulmonary vascular congestion Assessment and Plan: 60 y.o. male 7 Days Post-Op s/p Coronary artery bypass grafting x4, placement of left QUINN to the LAD, saphenous vein graft to the diagonal artery and obtuse marginal in a sequential fashion, saphenous vein graft to the PDA 05/04/[address] Granados Neuro: [id number], slightly impulsive. Seroquel increased CVS: NSR 90's. Start low dose BB today. Continue ASA, hold Plavix for hematuria Pulm: On 4L NC which is decreased from previous. No obvious infiltrate on CXR. Needs aggressive pulm toilet. On empiric Zosyn, WBCs decreasing today GI: Heart Healthy DM2 Diet-- +flatus -BM Renal: Continue to hold diuresis. BUN/Scr stable. Urology consult for hematuria/possible cysto ID: Continue Zosyn, WBC 17 today D/L/T: Tape wires, keep osorio and central line : Osorio remains in place per . Darwin would like to preform a cysto for persistent hematuria- plavix on hold as of now Prophylaxis: SCDs, hold Lovenox for hematuria Dispo: Need SW assessment. PT/OT to eval and treat. Patient already states he is only going home. Has 2 sons and a at home but is disabled. Home mid week. Varsha Crowder NP Cardiothoracic Surgery [facility] Cosigned by Rhina Granados MD at 05/11/2021 4:54 PM STAFF FORESTER F FORESTER F FORESTER * Shruthi Hu COTA - 05/11/2021 8:45 AM CST Occupational Therapy NOTE / SESSION TYPE: DAILY PROGRESS / TREATMENT Patient's Name: Deepak Alvarado Age / Sex: 60 y.o. / male [id number] : 1960 Date of service: 05/11/21 TIME IN: 08:45 TIME OUT: 09:10 Patient Active Problem List Diagnosis ??? ST elevation myocardial infarction (STEMI) (HCC) Past Medical History: Diagnosis Date ??? Chronic obstructive pulmonary disease (CMS/HCC) (HCC) COPD ??? Coronary artery disease ??? Diabetes mellitus (HCC) ??? H/O heart artery stent 2006 ??? Hypertension Hypertension ??? ST elevation (STEMI) myocardial infarction (HCC) 05/01/2021 No past surgical history on file. Precautions (including weight-bearing): Fall risk, Bed / chair alarm, Sternal precautions and Cardiac precautions Subjective: PATIENT STATES, I FEEL FINE, BUT MY PRIVATE PART IS HURTING. (MAKING GESTURES TO [place]AMIKA AREA) Therapy Pain: Pre-therapy pain level: 0 /10 Pain location: No pain - Location N/A Pain Intervention(s): No pain - Intervention N/A Post-therapy pain level: 0 /10 Pain scale reference: 0-10 SCALE Objective: Appearance: Presentation upon OT arrival: Patient Supine with head of bed elevated Presentation upon OT departure: Patient Sitting at edge of bed Bed / Chair alarm in place and activated upon OT departure: Yes Call light within arms reach of patient at end of session: Yes Completed patient handoff and notified MANAGER RENTAL / RN, name: CALE, of patient's location and functional status upon completion of session VITAL SIGNS: Heart rate at rest: 101 BPM O2 saturations at rest: 96 % Oxygen LPM: REMAINED ON 5 LPM OF O2 DURING ENTIRE OT SESSION Cognitive / Perceptual: A&O X 4, INTACT Mobility / Transfers: Bed Mobility: REQUIRED MOD ASSIST FOR ASSISTING WITH TRUNK COMPONENT FROM [place] WITH HOB ELEVATED > SEATED ATEOB PATIENT REMAINED SEATED AT EOB AT ENDING OF OT SESSION WITH DEMONSTRATION OF GOOD STATIC SITTING BALANCE AND NO SPV/ASSISTANCE. RN WAS MADE AWARE OF SITUATION Transfer(s): NOT ADDRESSED THIS A.M. D/T PATIENT DECLINING TO COMPLETE TASK Living Skills / Other Activities: ADDITIONAL ACTIVITY: EDUCATION ON STERNAL PRECAUTIONS DESCRIPTION OF ACTIVITY: PATIENT WAS EDUCATED ON 6/6 STERNAL PRECAUTIONS NECESSARY TO ADHERE TO DURING COMPLETION OF ALL ADLs AND OTHER DAILY ACTIVITIES FOR SAFETY CONCERNS. PATIENT REPORTS TO THERAPIST UPON BEGINNING OF SESSION, I HAVE NEVER HEARD OF THOSE BEFORE. THEY DIDN'T TELL ME. PATIENT WAS RECEPTIVE OF VERBAL/VISUAL DEMONSTRATIONS AND INFORMATION BEING PROVIDED PER THERAPIST. PATIENT DEMONSTRATED GOOD ATTENTION DURING ACTIVITY. (ONCE EDUCATED ON PRECAUTIONS, PATIENT STATES, I'M IN TOO MUCH PAIN AT THIS TIME. YOU GUYS ARE GOING TO HAVE TO COME BACK ANOTHER DAY. THIS HURTS, JACKSON. ) Caregiver Present: No Education & Training Provided: Role of OT, OT plan of care, ADL training, Compensatory ADL strategies, Bed mobility training, Safety education, CARDIAC AND STERNAL precautions and The following handouts were provided STERNAL PRECAUTIONS HANDOUT Assessment: Activity tolerance / response to OT session: RECEPTIVE TO EDUCATION / TRAINING, FAIR TOLERANCE, AGITATED and POOR MOTIVATION Progress towards goals: Please refer to care plan from this date for progress towards individual goals Plan: Therapy Plan: Rehab Potential (Prognosis): fair OT Recommendations This Date: Location: Inpatient rehabilitation pending qualify criteria Supervision: 24 hour Follow-up Therapy Recommendations: SKILLED OT IN INPATIENT REHABILITATION SETTING OT Consultation in Regards to Discharge Recommendations: N/A Frequency of therapy: 3-5 times / week If this is the last note, consider this the discharge summary CAITIE Tinsley 05/11/21 Cosigned by Rich Haynes OT at 05/11/2021 2:17 PM STAFF FORESTER F FORESTER F FORESTER * Lise Suggs NP - 05/11/2021 8:18 AM CST Urology Progress Note Subjective Deepak Alvarado is a 60 y.o. male that we are seeing for gross hematuria and clot retention. The nurses reports hematuria with minimal clots via the catheter. Lab Results Component Value Date CREATININE 0.89 05/11/2021 and CBC: Lab Results Component Value Date WBC 17.3 (H) 05/11/2021 HGB 11.1 (L) 05/11/2021 Lab/Radiology/Diagnostic Review: Most Recent: Vitals: 05/11/21 0723 BP: 108/96 Pulse: 90 Resp: 18 Temp: 36.7 ??C (98.1 ??F) SpO2: Review of Systems: All other systems except the HPI are negative. Objective Physical exam: Constitutional: Appears well-developed and well-nourished. Head: Normocephalic and atraumatic. Eyes: Conjunctivae and EOM are normal. Musculoskeletal: Normal range of motion. Neurological: Alert and oriented to person, place, and time. Psychiatric: Normal mood and affect. Behavior is normal. : Indwelling Osorio catheter is patent. Red tinged urine appreciated with minimal clots Assessment /Plan Principal Problem: ST elevation myocardial infarction (STEMI) (HCC) 60 y.o. male with gross hematuria with clot formation. Perform a bladder scan if there is no or minimal visual urinary output. Continue to monitor his urinary output and provide Osorio catheter care. Maintain the catheter. Plavix is on hold due to the hematuria. Dr. Paris was at the bedside to participate in his care and discussed undergoing cystoscopy. He had a long conversation with Deepak hemphill ussing the risks and complications of the procedure including but not limited to uti, accidental perforation of an organ, sepsis, bleeding and blood transfusions. He elected to proceed with the surgery as discussed. He is scheduled for cystoscopy, ureteroscopy, clot evacuation on 05/12/2021 at 7:[address] Paris. NPO after midnight Thank you for allowing Urology to be a part of the care of your patient. Please call if you have any questions. Lise Suggs NP Urology Division [facility] Office [phone] 05/11/2021 8:18 AM Cosigned by Robinson Paris MD at 05/17/2021 7:27 PM STAFF FORESTER F FORESTER F FORESTER F FORESTER * Eleonora Duarte NP - 05/10/2021 12:31 PM CST Cardiothoracic Surgery Progress Note Deepak Adair Lazarus 1960 [facility] DAY#9 6 Days Post-Op s/p: Procedures: * Coronary artery bypass grafting x4, placement of left QUINN to the LAD, saphenous vein graft to thediagonal artery and obtuse marginal in a sequential fashion, saphenous vein graft to the PDA- [place] Subjective: Patient up in the chair on 6 L of oxygen, he was on 2-4 L yesterday. Patient had a nearsyncopal episode this morning early when they were getting him up to weigh him and he was lowered by Nursing to the ground. He did not lose consciousness. He seemed to have a 20 point orthostatic difference. Today, the patient is alert oriented to self, situation and location however he has no idea that heis in a hospital room and says many things during conversation that shows confusion. He is mildly impulsive so I asked the staff to get him a low fall risk bed. He is very adamant that he would like to leave the hospital today. OBJECTIVE: Vitals: Temp: [36.6 ??C (97.8 ??F)-36.8 ??C (98.2 ??F)] 36.8 ??C (98.2 ??F) Pulse: [69-107] 78 BP: (105-124)/(47-72) 105/71 Resp: [18] 18 SpO2: [90 %-93 %] 93 % Wt Readings from Last 3 Encounters: 05/09/21 79.8 kg (176 lb) 08/27/13 114.3 kg (252 lb) 10/19/12 111.6 kg (246 lb) I/O last 2 completed shifts: In: 1520 [P.O.:1520] Out: 1400 [Urine:1400] NET +120 for 24 hours -7745 for stay Physical Exam HENT: Mouth/Throat: Mouth: Mucous membranes are moist. Eyes: Pupils: Pupils are equal, round, and reactive to light. Cardiovascular: Rate and Rhythm: Normal rate and regular rhythm. Pulses: Normal pulses. Heart sounds: Normal heart sounds. Comments: HR 70's VVI Back up 60/10/2- pw taped and secure Pulmonary: Effort: Pulmonary effort is normal. Breath sounds: Normal breath sounds. Genitourinary: Comments: Osorio- dark blood tinged urine Musculoskeletal: General: Normal range of motion. Right lower leg: No edema. Left lower leg: No edema. Skin: Comments: Sternum covered with silver Saph sites steristipped ZULEIKA Neurological: General: No focal deficit present. Mental Status: He is alert and oriented to person, place, and time. Psychiatric: Behavior: Behavior normal. Access: central line Recent Labs Lab Units 05/10/21 0502 05/09/21 0612 05/08/21 0555 WBC K/cumm 21.2* 16.0* 16.2* HEMOGLOBIN g/dL 12.4* 11.4* 10.5* HEMATOCRIT % 37.7* 34.9* 31.0* PLATELETS K/cumm 344 294 247 Recent Labs Lab Units 05/10/21 0502 05/09/21 0612 05/08/21 0555 SODIUM mmol/L 129* 131* 131* POTASSIUM PLASMA mmol/L 3.6 3.7 3.2* CHLORIDE mmol/L 90* 92* 94* CO2 mmol/L 25 26 25 BUN SERUM mg/dL 23 17 13 CREATININE mg/dL 0.91 0.78* 0.59* CALCIUM mg/dL 9.4 9.4 8.6 Recent Labs Lab Units 05/05/21 0021 05/04/21 2135 05/04/21 0247 PROTIME (PT) sec 14.4* 14.8* 13.4 INR 1.3* 1.3* 1.2 APTT sec 33 30 57* Recent Labs Lab Units 05/05/21 1605 05/05/21 1204 05/05/21 1015 PH ART 7.43 7.44 7.45 PCO2 ART mmHg 29* 30* 29* PO2 ART mmHg 82* 66* 75* BASE EXC ART mmol/L -4 -3 -4 Imaging: Today's CXR improving but still remains wet Assessment and Plan: 60 y.o. male 6 Days Post-Op s/p Coronary artery bypass grafting x4, placement of left QUINN to the LAD, saphenous vein graft to the diagonal artery and obtuse marginal in a sequential fashion, saphenous vein graft to the PDA 05/04/[address] Granados Neuro: [id number] but mild confusion with impulsive behavior. Will increase seroquel. May need to d/c oxy for severe back pain. CVS: NSR, off dobutamine- BPs soft. Will hold off on BB at this time.On Lipitor/ASA/Plavix Pulm: 02 requirement increased to 6L from 2-4 yesterday. Needs aggressive ambulation, IS and pulm toilet- heavy smoker since age 13. Cont nebulizers and wean O2 for sats >92%. + productive cough clear with specks of blood, Start Zosyn for ?pna GI: Heart Healthy DM2 Diet-- +flatus -BM Renal: Hold diuresis today for near syncope and +orthostatic- hope to restart tomorrow, Na+ 129 ID: Switched rocephin to zosyn- afebrile, WBC jump from 16 to 21 D/L/T: PW VVI Back up, Osorio, wires : Osorio remains in place per . Darwin would like to preform a cysto for persistent hematuria- plavix on hold as of now Prophylaxis: Lovenox Dispo: Need SW assessment. PT/OT to eval and treat. Patient already states he is only going home. Has 2 sons and a at home but is disabled. Home mid week. Eleonora Duarte NP Cardiothoracic Surgery [facility] F FORESTER F FORESTER * Anibal Lara MD - 05/10/2021 11:56 AM CST Hospitalist Progress Note Name: Deepak Alvarado Admission Date: 05/01/2021 Today's Date: 05/10/2021 Subjective: Pt seen and examined while in the ICU, Clinical course: Overall pt condition has improved. Pt will be transferred to 9th floor, had Osorio with blood urine and still on Dobutamine gtt 05/09: pt is on RA, still on Dobutamine gtt today 05/10: off Dobutamine gtt, new events noted ( had a near syncope/syncope episode at 2 am while trying to go the bathroom) Objective: Vitals: 05/10/21 0750 05/10/21 0900 05/10/21 1000 05/10/21 1100 BP: BP Location: Patient Position: Pulse: 81 100 96 90 Resp: Temp: TempSrc: SpO2: Weight: Height: Wt Readings from Last 3 Encounters: 05/09/21 79.8 kg (176 lb) 08/27/13 114.3 kg (252 lb) 10/19/12 111.6 kg (246 lb) I/O last 3 completed shifts: In: 1660 [P.O.:1640; I.V.:20] Out: 3900 [Urine:3900] I/O this shift: In: - Out: 200 [Urine:200] Scheduled Meds Current Facility-Administered Medications Medication Dose Route Frequency Provider Last Rate Last Admin ??? acetaminophen (TYLENOL) tablet 650 mg 650 mg oral Q6H PRN Eleonora Duarte NP ? ? al & mag hydroxide mhbwxsblsdm-fzdoejcapylubvm-wbexvljzv-nystatin (MAGIC MOUTHWASH) suspension 1-1-1-1 20 mL swish & spit Q4H PRN Tiana Spence NP 20 mL at 05/09/21 181 ??? albumin 5 % bottle 12.5 g 12.5 g intravenous Q15 Min PRN Rhina Granados MD 12.5 g at 05/04/21 2300 ??? albuterol 2.5 mg /3 mL (0.083 %) nebulizer solution 2.5 mg 2.5 mg nebulization Q4H PRN (RT) Ralf Tomlinson MD ??? aspirin chewable tablet 324 mg 324 mg oral Daily Rhina Granados MD 324 mg at 05/10/21 0853 ??? atorvastatin (LIPITOR) tablet 80 mg 80 mg oral Nightly Rhina Granados MD 80 mg at 05/09/21 2248 ??? cefTRIAXone (ROCEPHIN) 2,000 mg/20 mL in sterile water (premix) 2,000 mg 2,000 mg intravenous Q24H Rhina Granados MD 2,000 mg at 05/09/21 1814 ??? clopidogreL (PLAVIX) tablet 75 mg 75 mg oral Daily Rhina Granados MD 75 mg at 05/10/21 0854 ??? dextrose oral liquid liquid 15 g 15 g oral Q15 Min PRN Rhina Granados MD Or ??? dextrose (D10W) 10% bolus 250 mL 250 mL intravenous Q15 Min PRN Rhina Granados MD ??? docusate sodium (COLACE) capsule 100 mg 100 mg oral BID Rhina Granados MD 100 mg at 05/10/21 0853 ??? enoxaparin (LOVENOX) syringe 40 mg 40 mg subcutaneous Daily-2100 Rhina Granados MD 40 mg at107/09/20 2247 ??? [Held by Provider] furosemide (LASIX) 10 mg/mL injection 40 mg 40 mg intravenous Q8H Rhina Granados MD 40 mg at 05/10/21 0105 ??? glucagon injection 1 mg 1 mg intramuscular Q30 Min PRN Rhina Granados MD ??? guaiFENesin ER (MUCINEX) extended release tablet 600 mg 600 mg oral BID Tiana Spence NP 600 mg at 05/10/21 0856 ??? insulin glargine (LANTUS, SEMGLEE) 100 unit/mL injection 10 Units 10 Units subcutaneous NightlyRhina Granados MD 10 Units at 05/09/21 2252 ??? insulin lispro (HumaLOG, ADMELOG) 100 unit/mL injection 0-5 Units 0-5 Units subcutaneous Q4H Rhina Granados MD 2 Units at 05/10/21 0856 ??? ketorolac (TORADOL) injection 30 mg 30 mg intravenous Q6H PRRhina Calle MD ??? ondansetron (ZOFRAN) injection 4 mg 4 mg intravenous Q6H PRRhina Calle MD ??? oxyCODONE (ROXICODONE) tablet 5 mg 5 mg oral Q4H PRN Rhina Granados MD 5 mg at 05/10/21 1048 ??? pantoprazole DR (PROTONIX) extended release tablet 40 mg 40 mg oral Daily Rhina Granados MD40 mg at 05/10/21 0856 ??? polyethylene glycol (MIRALAX) packet 17 g 17 g oral BID Rhina Granados MD 17 g at 05/10/21 0856 ??? potassium chloride ER (KLOR-CON) extended release tablet 40 mEq 40 mEq oral BID Rhina Granados MD 40 mEq at 05/10/21 0854 ??? QUEtiapine (SEROquel) tablet 25 mg 25 mg oral Nightly Rhina Granados MD 25 mg at 05/09/21 2248 ??? sodium chloride 0.9% flush 0.5-20 mL 0.5-20 mL intra-catheter Q8H LEAH Rhina Granados MD 10 mL at 05/10/21 0515 ??? acetaminophen ? ? al & mag hydroxide iqpdanwfsed-wwwlvtpctifhsbw-qietdeotu-nystatin ??? albumin ??? albuterol ??? dextrose OR dextrose ??? glucagon ??? ketorolac ??? ondansetron ??? oxyCODONE Physical Exam: General: alert, cooperative, no distress, appears stated age HEENT: Head:normacephalic, Eyes: Perrla, EOMI bilaterally, nasal and oral mucosal pink and moist Heart: normal rate, regular rhythm, normal S1, S2, no murmurs, rubs, clicks or gallops Lungs: clear to auscultation, no wheezes or rales and unlabored breathing Abdomen: soft, nontender, nondistended, no masses or organomegaly Extremities: peripheral pulses normal, no pedal edema, no clubbing or cyanosis Neuro: alert, oriented x 3, no defects noted in general exam. Lab Data Laboratory review: Chemistry CMP: Lab Results Component Value Date BUNSER 23 05/10/2021 CALCIUM 9.4 05/10/2021 CO2 25 05/10/2021 CHLORIDE 90 (L) 05/10/2021 CREATININE 0.91 05/10/2021 GLUCOSE 209 (H) 05/10/2021 GLUCOSE 187 05/10/2021 POTASSIUM 3.6 05/10/2021 SODIUM 129 (L) 05/10/2021 , CBC: Lab Results Component Value Date WBC 21.2 (H) 05/10/2021 RBC 4.19 (L) 05/10/2021 HGB 12.4 (L) 05/10/2021 HCT 37.7 (L) 05/10/2021 MCV 90.0 05/10/2021 MCH 29.6 05/10/2021 MCHC 32.9 05/10/2021 RDWCV 13.5 05/10/2021 RDWSD 44.3 05/10/2021 MPV 11.4 05/10/2021 NRBCABS 0.00 05/10/2021 , Coags: No results found for: PT, PTT, APTT, FFN, FIBRINOGEN, INR, ACTIVATEDCL, Lipids: No resultsfound for: CHOL, CHLPL, HDL, LDLCALC, TRIG, CHOLHDL, Cardiac Enzymes: No results found for: CKTOTAL, CKMB, CKMBINDEX, TROPONINT and POC Glucose: Lab Results Component Value Date GLUCOSE 209 (H) 05/10/2021 GLUCOSE 187 05/10/2021 Home Medications have been reviewed and updated on pt's list Assessment and Plan Near syncope/Syncope episode, probable vaso vagal, monitor Acute anterior STEMI with CAD , s/p PCI to LAD -s/p CABG x 4 05/04 given re thrombosis of existing stents -s/p IABP, removed 05/06 - off Dobutamine gtt today -pt is on ASA, Plavix, statins , no BBs due to hypotension ?? Post CABG cardiogenic shock - s/p fluid resuscitation , Levophed - off Dobutamine gtt today ?? Ventricular fibrillation - briefly on 05/03 - treated with Amiodarone ; now on Dobutamine ?? Gross Hematuria - in a pt with hx of cystoscopy, -clot evacuation and transurethral resection of bladder tumor at [facility] -s/p 20??German three way catheter, urine still bloody -urology follows ?? Acute resp failure - self ext 05/05/21 -Lung infiltrates - pulm vascular congestion versus pneumonia -currently on Lasix IV and broad-spectrum antibiotics Rocephin -transitioned into NC and possible RA today ?? Type 2 diabetes.??- transitioned into SSI protocol And Lantus ?? Acute blood loss anemia ; -s/p PRBC transfusions in ICU -Hb today 112.4 monitor ?? Hx of Tobacco use. ?? Vitamin-D deficiency.- stable DVT prophylaxis :Lovenox Pt will need continued inpatient management for the above medical issues. Code status: full Anibal Hughes MD [facility] Hospitalist 05/10/2021 11:56 AM F FORESTER * Tiana Spence ESCROW CLERK - 05/10/2021 8:13 AM CST Daily Progress SUBJECTIVE: Events of this am noted: per RN states that when pt was stood up to get his weigh, he had a syncopal episode. Pt was lowered to floor. Code was called, but pt never lost pulse, code cancelled. Pt woke up as he was laying on the floor. DEEPIKA Mancilla states that it was reported to her, that pt was orthostatic, 20 point difference Pt given albumin. Last BP 106/69. Pt states that he dose not recall allthe specifics, he does remember standing up to get his weight and being assisted to the floor. Pt currently resting in bed, NAD. Mild incisional discomfort. Denies any SOB, dizziness, palpitations at present Some dry blood noted to Alison watson- will order humidified o2 OBJECTIVE: Vitals: 05/10/21 0537 05/10/21 0540 05/10/21 0605 05/10/21 0748 BP: 124/72 124/72 106/69 BP Location: Left arm Patient Position: Lying Pulse: 103 107 87 Resp: 18 Temp: 36.6 ??C (97.8 ??F) TempSrc: Oral SpO2: 93% Weight: Height: Intake/Output Summary (Last 24 hours) at 05/10/2021 0813 Last data filed at 05/10/2021 0520 Gross per 24 hour Intake 1520 ml Output 1150 ml Net 370 ml Scheduled Medications Medication Dose Route Frequency ??? aspirin chewable tablet 324 mg 324 mg oral Daily ??? atorvastatin (LIPITOR) tablet 80 mg 80 mg oral Nightly ??? cefTRIAXone (ROCEPHIN) 2,000 mg/20 mL in sterile water (premix) 2,000 mg 2,000 mg intravenous Q24H ??? clopidogreL (PLAVIX) tablet 75 mg 75 mg oral Daily ??? docusate sodium (COLACE) capsule 100 mg 100 mg oral BID ??? enoxaparin (LOVENOX) syringe 40 mg 40 mg subcutaneous Daily-2100 ??? [Held by Provider] furosemide (LASIX) 10 mg/mL injection 40 mg 40 mg intravenous Q8H ??? guaiFENesin ER (MUCINEX) extended release tablet 600 mg 600 mg oral BID ??? insulin glargine (LANTUS, SEMGLEE) 100 unit/mL injection 10 Units 10 Units subcutaneous Nightly ??? insulin lispro (HumaLOG, ADMELOG) 100 unit/mL injection 0-5 Units 0-5 Units subcutaneous Q4H ??? metOLazone (ZAROXOLYN) tablet 10 mg 10 mg oral Once ??? pantoprazole DR (PROTONIX) extended release tablet 40 mg 40 mg oral Daily ??? polyethylene glycol (MIRALAX) packet 17 g 17 g oral BID ??? potassium chloride ER (KLOR-CON) extended release tablet 40 mEq 40 mEq oral BID ??? QUEtiapine (SEROquel) tablet 25 mg 25 mg oral Nightly ??? sodium chloride 0.9% flush 0.5-20 mL 0.5-20 mL intra-catheter Q8H LEAH LABS: Recent Labs Lab Units 05/10/21 0502 WBC K/cumm 21.2* HEMOGLOBIN g/dL 12.4* HEMATOCRIT % 37.7* PLATELETS K/cumm 344 Recent Labs Lab Units 05/10/21 0757 05/10/21 0514 05/10/21 0502 05/04/21 0803 05/04/21 0247 SODIUM mmol/L -- -- 129* < > 131* POTASSIUM PLASMA mmol/L -- -- 3.6 < > 4.0 CHLORIDE mmol/L -- -- 90* < > 100 CO2 mmol/L -- -- 25 < > 20* ANIONGAP mmol/L -- -- 14 < > 11 GLUCOSE mg/dL -- -- 187 < > 231* POC GLUCOSE MONITOR mg/dL 209* < > -- < > -- BUN SERUM mg/dL -- -- 23 < > 7* CREATININE mg/dL -- -- 0.91 < > 0.58* CALCIUM mg/dL -- -- 9.4 < > 8.5 ALBUMIN g/dL -- -- -- -- 3.1* ALK PHOS Units/L -- -- -- -- 69 ALT Units/L -- -- -- -- 18 AST Units/L -- -- -- -- 50 BILIRUBIN TOTAL mg/dL -- -- -- -- 0.4 < > = values in this interval not displayed. No results found for: BNP No results found for: TROPONINI Exam ?? General:??in no apparent distress and well developed Neuro: Alert and oriented x 3, moves all extremities HEENT: normocephalic, atraumatic, thyroid not enlarged. Dry blood noted to Alison watson (will order humidified o2) Neck: ??I do not appreciate JVD. Lungs: symmetric, unlabored, coarse, scattered crackles bases??to auscultation bilaterally Heart: S1,S2, ??regular rate &??rhythm, no murmurs, rubs, or gallops Abdomen: soft, non-tender, non-distended, bowel sounds present Extremities: trace BLE edema, palpable peripheral pulses BL. RLE donor sites intact Neurologic: No focal deficits Skin: sternotomy with dressing intact, pacing wires, RLE donor sites ? ECHO: 05/07/21 Conclusions: Reduced left ventricular cavity size. Mild global left ventricular systolic dysfunction. Ejection fraction is measured at 42 %. These segments of the LV are hypokinetic: apical anterior segment. Trivial pericardial effusion. No echocardiographic evidence to suggest pericardial tamponade ? ASSESSMENT/PLAN: Syncopal episode -(+) orthostasis -receiving albumin -IV lasix was discontinued. There is a 1x order for zaroxolyn 10mg this am- recommend holding for now. D/w RN Coronary artery disease -s/p CABG post STEMI -??underwent four-vessel bypass ??MAE to the LAD, sequential saphenous vein graft to diagonal and obtuse marginal and a vein graft to the PDA. -s/p low dose dobutamine -paced rhythm -??IV??diuretics discontinued d/t syncopal episode today (see above) ?? Moderate LV dysfunction -s/p IV lasix and??low dose??dobutamine -Beta blockers, ??[place] once off dobutamine-would hold off adding given syncopal episode this am -repeat ECHO 05/07 EF 42% (see above) ?Nonsustained ventricular tachycardia -no recurrence of VT -K 3.7, Mg 2.0. ??Supplement to keep K >/= 4.0, Mg >/= 2.0 ?Diabetes mellitus -?on lantus and SSI ?? COPD: ?? -on?O2 NC 4L (dried blood to L nare humidified o2 ordered) ?? Dyslipidemia -?Continue atorvastatin. ?PAD -?Stable ? Recent bladder tumor removal: ?? -??Urology is following.H/H stable ?? Anemia -Hb??11.4 (10.5) (8.6) -monitor ?? Oral mucositis -no evidence of thrush on exam - my mouth and tongue are raw and hurt - improved -magic mouthwash PRN Tiana Spence NP [facility] 05/10/2021 8:13 AM F FORESTER * August Colin MD - 05/10/2021 7:19 AM CST Pulmonary Daily Progress Chief complaint/reason for consult: Respiratory failure. Interval History: Patient had a near syncopal episode today. Apparently was orthostatic but did not lose consciousness. His diuretic has been held and he is receiving albumin On 6 L of supplemental oxygen Has some left-sided chest discomfort which he says is unchanged Not coughing up much sputum He is on dobutamine infusion Presenting History: 60 yo man w COPD, DM, CAD/stents admitted 05/01/21 with chest pain. Had recent hematuria as well. Workup revealed an acute MT. Cath showed multi-vessel CAD. Had balloon pump placed. CABG x 4 done on 05/04/21. He was continued on mechanical ventilation and self extubated this AM (05/05/21). He is on multiple pressors. Sedated with precedex. Some tachypnea. A balloon pump is in place. Current tobacco use. COPD listed as prior diagnosis. No inhalers on home med list. Allergies: Allergies Allergen Reactions ??? Metoclopramide Medications: Scheduled Meds:aspirin, 324 mg, oral, Daily atorvastatin, 80 mg, oral, Nightly cefTRIAXone, 2,000 mg, intravenous, Q24H clopidogreL, 75 mg, oral, Daily docusate sodium, 100 mg, oral, BID enoxaparin, 40 mg, subcutaneous, Daily-2100 [Held by Provider] furosemide, 40 mg, intravenous, Q8H guaiFENesin ER, 600 mg, oral, BID insulin glargine, 10 Units, subcutaneous, Nightly insulin lispro, 0-5 Units, subcutaneous, Q4H metOLazone, 10 mg, oral, Once pantoprazole DR, 40 mg, oral, Daily polyethylene glycol, 17 g, oral, BID potassium chloride ER, 40 mEq, oral, BID QUEtiapine, 25 mg, oral, Nightly sodium chloride 0.9%, 0.5-20 mL, intra-catheter, Q8H LEAH Continuous Infusions: PRN Meds:.??? acetaminophen ? ? al & mag hydroxide lhxurktnqrz-bvhljkkzgnatris-xnxwzolde-nystatin ??? albumin ??? albuterol ??? dextrose OR dextrose ??? glucagon ??? ketorolac ??? ondansetron ??? oxyCODONE ROS Above review of system reviewed on 05/10/2021 Vitals: Vitals: 05/10/21 0535 05/10/21 0537 05/10/21 0540 05/10/21 0605 BP: 107/67 124/72 124/72 BP Location: Patient Position: Pulse: 103 107 Resp: Temp: TempSrc: SpO2: 91% Weight: Height: Temp (24hrs), Av.8 ??C (98.2 ??F), Min:36.6 ??C (97.8 ??F), Max:37.1 ??C (98.7 ??F) Intake/Output Summary (Last 24 hours) at 05/10/2021 0719 Last data filed at 05/10/2021 0520 Gross per 24 hour Intake 1520 ml Output 1400 ml Net 120 ml Physical Exam Constitutional: General: He is not in acute distress. Appearance: He is well-developed. HENT: Head: Normocephalic and atraumatic. Eyes: Conjunctiva/sclera: Conjunctivae normal. Neck: Thyroid: No thyromegaly. Cardiovascular: Rate and Rhythm: Normal rate and regular rhythm. Heart sounds: No murmur heard. Pulmonary: Effort: Pulmonary effort is normal. No respiratory distress. Breath sounds: Normal breath sounds. No stridor. No wheezing or rales. Chest: Comments: Sternotomy incision Abdominal: General: Bowel sounds are normal. Palpations: Abdomen is soft. Skin: General: Skin is warm and dry. Neurological: Mental Status: He is alert. Lab/Radiology/Diagnostic Review: Labs: Recent Labs Lab Units 05/10/21 0502 05/09/21 0612 05/08/21 0555 05/05/21 1204 05/05/21 0419 WBC K/cumm 21.2* 16.0* 16.2* < > 13.2* HEMOGLOBIN g/dL 12.4* 11.4* 10.5* < > 10.7* HEMATOCRIT % 37.7* 34.9* 31.0* < > 30.4* PLATELETS K/cumm 344 294 247 < > 191 NEUTROS PCT % -- -- -- -- 84.2 LYMPHS PCT % -- -- -- -- 3.1 MONOS PCT % -- -- -- -- 11.2 EOS PCT % -- -- -- -- 0.2 < > = values in this interval not displayed. Recent Labs Lab Units 05/10/21 0514 05/10/21 0502 05/10/21 0109 05/09/21 0756 05/09/21 0612 05/08/21 0741 05/08/21 0555 05/04/21 0803 05/04/21 0247 SODIUM mmol/L -- 129* -- -- 131* -- 131* < > 131* POTASSIUM PLASMA mmol/L -- 3.6 -- -- 3.7 -- 3.2* < > 4.0 CHLORIDE mmol/L -- 90* -- -- 92* -- 94* < > 100 CO2 mmol/L -- 25 -- -- 26 -- 25 < > 20* ANIONGAP mmol/L -- 14 -- -- 13 -- 12 < > 11 GLUCOSE mg/dL -- 187 -- -- 174 < > 191 < > 231* POC GLUCOSE MONITOR mg/dL 188 -- 216* < > -- < > -- < > -- BUN SERUM mg/dL -- 23 -- -- 17 -- 13 < > 7* CREATININE mg/dL -- 0.91 -- -- 0.78* -- 0.59* < > 0.58* CALCIUM mg/dL -- 9.4 -- -- 9.4 -- 8.6 < > 8.5 ALBUMIN g/dL -- -- -- -- -- -- -- -- 3.1* ALK PHOS Units/L -- -- -- -- -- -- -- -- 69 ALT Units/L -- -- -- -- -- -- -- -- 18 AST Units/L -- -- -- -- -- -- -- -- 50 BILIRUBIN TOTAL mg/dL -- -- -- -- -- -- -- -- 0.4 < > = values in this interval not displayed. Recent Labs Lab Units 05/05/21 1605 05/05/21 1204 05/05/21 1015 PH ART 7.43 7.44 7.45 PCO2 ART mmHg 29* 30* 29* PO2 ART mmHg 82* 66* 75* HCO3 ART (CALC) mmol/L 21 22 22 BASE EXC ART mmol/L -4 -3 -4 O2 SAT ART (JOELLE) % 97* 94 96* Imaging: CXR 05/09 pulmonary vascular congestion Other diagnostic tests: I have personally reviewed above laboratory findings, chest imaging, and diagnostic tests 05/10/2021 Assessment and Plan: Acute respiratory failure Acute MT w CAD s/p CABG x 4 on 05/04/21, past hx multiple stents Cardiogenic shock Cardiomyopathy EF 40% V fib Hx COPD Anemia Infiltrates: edema v pna, tracheal aspirate w yeast ?? Recs: Oxygen as required. Wean as tolerated Incentive spirometry abx coverage for pna Scheduled bronchodilators Follow CXR ??Dobutamine, diuresis Chart reviewed Discussed with RN F FORESTER * Anibal Lara MD - 05/09/2021 12:20 PM CST Hospitalist Progress Note Name: Deepak Alvarado Admission Date: 05/01/2021 Today's Date: 05/09/2021 Subjective: Pt seen and examined while in the ICU, Clinical course: Overall pt condition has improved. Pt will be transferred to 9th floor, had Osorio with blood urine and still on Dobutamine gtt 05/09: pt is on RA, still on Dobutamine gtt today Objective: Vitals: 05/09/21 0600 05/09/21 0742 05/09/21 0800 05/09/21 1115 BP: 112/57 97/59 BP Location: Right arm Right arm Patient Position: Lying Lying Pulse: 86 78 86 Resp: 18 18 Temp: 37.1 ??C (98.7 ??F) 36.6 ??C (97.8 ??F) TempSrc: Oral Oral SpO2: 93% 95% Weight: 79.8 kg (176 lb) Height: Wt Readings from Last 3 Encounters: 05/09/21 79.8 kg (176 lb) 08/27/13 114.3 kg (252 lb) 10/19/12 111.6 kg (246 lb) I/O last 3 completed shifts: In: 705.9 [P.O.:580; I.V.:125.9] Out: 6625 [Urine:6625] I/O this shift: In: - Out: 550 [Urine:550] Scheduled Meds Current Facility-Administered Medications Medication Dose Route Frequency Provider Last Rate Last Admin ??? acetaminophen (TYLENOL) tablet 650 mg 650 mg oral Q6H PRN Eleonora Duarte NP ? ? al & mag hydroxide uaqjcgadzpt-tlhvrmkgenglubl-trpdrxfqs-nystatin (MAGIC MOUTHWASH) suspension 1-1-1-1 20 mL swish & spit Q4H PRN Tiana Spence NP 20 mL at 05/09/21 1133 ??? albumin 5 % bottle 12.5 g 12.5 g intravenous Q15 Min PRN Rhina Granados MD 12.5 g at 05/04/21 2300 ??? albuterol 2.5 mg /3 mL (0.083 %) nebulizer solution 2.5 mg 2.5 mg nebulization Q4H PRN (RT) Ralf Tomlinson MD ??? aspirin chewable tablet 324 mg 324 mg oral Daily Rhina Granados MD 324 mg at 05/09/21 0849 ??? atorvastatin (LIPITOR) tablet 80 mg 80 mg oral Nightly Rhina Granados MD 80 mg at 05/08/21 2219 ??? cefTRIAXone (ROCEPHIN) 2,000 mg/20 mL in sterile water (premix) 2,000 mg 2,000 mg intravenous Q24H Rhina Granados MD 2,000 mg at 05/08/21 1739 ??? clopidogreL (PLAVIX) tablet 75 mg 75 mg oral Daily Rhina Granados MD 75 mg at 05/09/21 0850 ??? dextrose oral liquid liquid 15 g 15 g oral Q15 Min PRN Rhina Granados MD Or ??? dextrose (D10W) 10% bolus 250 mL 250 mL intravenous Q15 Min PRN Rhina Granados MD ??? docusate sodium (COLACE) capsule 100 mg 100 mg oral BID Rhina Grnaados MD 100 mg at 05/09/21 0851 ??? enoxaparin (LOVENOX) syringe 40 mg 40 mg subcutaneous Daily-2100 Rhina Granados MD 40 mg at107/08/20 2219 ??? furosemide (LASIX) 10 mg/mL injection 40 mg 40 mg intravenous Q8H Rhina Granados MD 40 mg at 05/09/21 0849 ??? glucagon injection 1 mg 1 mg intramuscular Q30 Min PRN Rhina Granados MD ??? guaiFENesin ER (MUCINEX) extended release tablet 600 mg 600 mg oral BID Tiana Spence NP 600 mg at 05/09/21 0850 ??? insulin glargine (LANTUS, SEMGLEE) 100 unit/mL injection 10 Units 10 Units subcutaneous NightlyRhina Granados MD 10 Units at 05/08/21 2302 ??? insulin lispro (HumaLOG, ADMELOG) 100 unit/mL injection 0-5 Units 0-5 Units subcutaneous Q4H Rhina Granados MD 3 Units at 05/09/21 1142 ??? ketorolac (TORADOL) injection 30 mg 30 mg intravenous Q6H PRN Rhina Granados MD ??? ondansetron (ZOFRAN) injection 4 mg 4 mg intravenous Q6H PRN Rhina Granados MD ??? oxyCODONE (ROXICODONE) tablet 5 mg 5 mg oral Q4H PRN Rhina Granados MD ??? pantoprazole DR (PROTONIX) extended release tablet 40 mg 40 mg oral Daily Rhina Granados MD40 mg at 05/09/21 0850 ??? polyethylene glycol (MIRALAX) packet 17 g 17 g oral BID Rhina Granados MD ??? potassium chloride ER (KLOR-CON) extended release tablet 40 mEq 40 mEq oral BID Rhina Granados MD 40 mEq at 05/09/21 0849 ??? QUEtiapine (SEROquel) tablet 25 mg 25 mg oral Nightly Rhina Granados MD 25 mg at 05/08/21 2220 ??? sodium chloride 0.9% flush 0.5-20 mL 0.5-20 mL intra-catheter Q8H LEAH Rhina Granados MD 10 mL at 05/09/21 0547 ??? acetaminophen ? ? al & mag hydroxide rfenkmapswj-cimlhttcrqpxzfe-yczquktbk-nystatin ??? albumin ??? albuterol ??? dextrose OR dextrose ??? glucagon ??? ketorolac ??? ondansetron ??? oxyCODONE Physical Exam: General: alert, cooperative, no distress, appears stated age HEENT: Head:normacephalic, Eyes: Perrla, EOMI bilaterally, nasal and oral mucosal pink and moist Heart: normal rate, regular rhythm, normal S1, S2, no murmurs, rubs, clicks or gallops Lungs: clear to auscultation, no wheezes or rales and unlabored breathing Abdomen: soft, nontender, nondistended, no masses or organomegaly Extremities: peripheral pulses normal, no pedal edema, no clubbing or cyanosis Neuro: alert, oriented x 3, no defects noted in general exam. Lab Data Laboratory review: Chemistry CMP: Lab Results Component Value Date BUNSER 17 05/09/2021 CALCIUM 9.4 05/09/2021 CO2 26 05/09/2021 CHLORIDE 92 (L) 05/09/2021 CREATININE 0.78 (L) 05/09/2021 GLUCOSE 274 (H) 05/09/2021 GLUCOSE 174 05/09/2021 POTASSIUM 3.7 05/09/2021 SODIUM 131 (L) 05/09/2021 , CBC: Lab Results Component Value Date WBC 16.0 (H) 05/09/2021 RBC 3.81 (L) 05/09/2021 HGB 11.4 (L) 05/09/2021 HCT 34.9 (L) 05/09/2021 MCV 91.6 05/09/2021 MCH 29.9 05/09/2021 MCHC 32.7 05/09/2021 RDWCV 13.7 05/09/2021 RDWSD 45.7 05/09/2021 MPV 11.3 05/09/2021 NRBCABS 0.00 05/09/2021 , Coags: No results found for: PT, PTT, APTT, FFN, FIBRINOGEN, INR, ACTIVATEDCL, Lipids: No resultsfound for: CHOL, CHLPL, HDL, LDLCALC, TRIG, CHOLHDL, Cardiac Enzymes: No results found for: CKTOTAL, CKMB, CKMBINDEX, TROPONINT and POC Glucose: Lab Results Component Value Date GLUCOSE 274 (H) 05/09/2021 GLUCOSE 174 05/09/2021 Home Medications have been reviewed and updated on pt's list Assessment and Plan Acute anterior STEMI with CAD , s/p PCI to LAD -s/p CABG x 4 05/04 given re thrombosis of existing stents -s/p IABP, removed 05/06 - cont with Dobutamine gtt -pt is on ASA, Plavix, statins , no BBs due to hypotension ?? Post CABG cardiogenic shock - s/p fluid resuscitation , Levophed -cont with Dobutamine gtt ?? Ventricular fibrillation - briefly on 05/03 - treated with Amiodarone ; now on Dobutamine ?? Gross Hematuria - in a pt with hx of cystoscopy, -clot evacuation and transurethral resection of bladder tumor at [facility] -s/p 20??German three way catheter, urine still bloody -urology follows ?? Acute resp failure - self ext 05/05/21 -Lung infiltrates - pulm vascular congestion versus pneumonia -currently on Lasix IV and broad-spectrum antibiotics Rocephin -transitioned into NC and possible RA today ?? Type 2 diabetes.??- transitioned into SSI protocol And Lantus ?? Acute blood loss anemia ; -s/p PRBC transfusions in ICU -Hb today 10.5, monitor ?? Hx of Tobacco use. ?? Vitamin-D deficiency.- stable DVT prophylaxis :Lovenox Pt will need continued inpatient management for the above medical issues. Code status: full Anibal Hughes MD [facility] Hospitalist 05/09/2021 12:20 PM F FORESTER F FORESTER * Eleonora Duarte NP - 05/09/2021 11:15 AM CST Cardiothoracic Surgery Progress Note Deepak Alvarado 1960 [facility] DAY#8 5 Days Post-Op s/p: Procedures: * Coronary artery bypass grafting x4, placement of left QUINN to the LAD, saphenous vein graft to thediagonal artery and obtuse marginal in a sequential fashion, saphenous vein graft to the PDA- [facility] Subjective: In bed on 2L- refused to get up to chair for breakfast due to back pain. Has productivecough- hacking in the room during assessment. Poor appetite but because he does not like the food. Denies SOB or chest discomfort. OBJECTIVE: Vitals: Temp: [36.4 ??C (97.5 ??F)-37.1 ??C (98.7 ??F)] 37.1 ??C (98.7 ??F) Pulse: [70-95] 78 BP: (87-120)/(56-68) 112/57 Resp: [18] 18 SpO2: [90 %-100 %] 93 % PAP: -- CVP: -- PCWP: -- CO: -- CI: -- SVO2: -- Pacemaker Overdrive Pacing: -- Cardiac Rhythm: Normal sinus rhythm (05/09 920) Pacer Mode: VVI (05/09 920) Wt Readings from Last 3 Encounters: 05/09/21 79.8 kg (176 lb) 08/27/13 114.3 kg (252 lb) 10/19/12 111.6 kg (246 lb) I/O last 2 completed shifts: In: 560.9 [P.O.:480; I.V.:80.9] Out: 3000 [Urine:3000] NET -2439 for 24 hours -7865 for stay Physical Exam HENT: Mouth/Throat: Mouth: Mucous membranes are moist. Eyes: Pupils: Pupils are equal, round, and reactive to light. Cardiovascular: Rate and Rhythm: Normal rate and regular rhythm. Pulses: Normal pulses. Heart sounds: Normal heart sounds. Comments: HR 70's VVI Back up - pw taped and secure Pulmonary: Effort: Pulmonary effort is normal. Breath sounds: Normal breath sounds. Genitourinary: Comments: Osorio- dark blood tinged urine Musculoskeletal: General: Normal range of motion. Right lower leg: No edema. Left lower leg: No edema. Skin: Comments: Sternum covered with silver Saph sites steristipped HOME CARE PROVIDER Neurological: General: No focal deficit present. Mental Status: He is alert and oriented to person, place, and time. Psychiatric: Behavior: Behavior normal. Access: central line Recent Labs Lab Units 05/09/21 0605/08/21 0505/07/21 0421 WBC K/cumm 16.0* 16.2* 16.6* HEMOGLOBIN g/dL 11.4* 10.5* 8.6* HEMATOCRIT % 34.9* 31.0* 25.5* PLATELETS K/cumm 294 247 197 Recent Labs Lab Units 05/09/21 0612 05/08/21 0555 05/07/21 0421 SODIUM mmol/L 131* 131* 137 POTASSIUM PLASMA mmol/L 3.7 3.2* 3.3 CHLORIDE mmol/L 92* 94* 103 CO2 mmol/L 26 25 18* BUN SERUM mg/dL 17 13 16 CREATININE mg/dL 0.78* 0.59* 0.59* CALCIUM mg/dL 9.4 8.6 8.1* Recent Labs Lab Units 05/05/21 0021 05/04/21 2135 05/04/21 0247 PROTIME (PT) sec 14.4* 14.8* 13.4 INR 1.3* 1.3* 1.2 APTT sec 33 30 57* Recent Labs Lab Units 05/05/21 1605 05/05/21 1204 05/05/21 1015 PH ART 7.43 7.44 7.45 PCO2 ART mmHg 29* 30* 29* PO2 ART mmHg 82* 66* 75* BASE EXC ART mmol/L -4 -3 -4 Drips: Dobutamine at 1mcg Imaging: Today's CXR improving but still remains wet Assessment and Plan: 60 y.o. male 5 Days Post-Op s/p Coronary artery bypass grafting x4, placement of left QUINN to the LAD, saphenous vein graft to the diagonal artery and obtuse marginal in a sequential fashion, saphenous vein graft to the PDA 05/04/[address] Granados Pain: Complaining of chronic back/neck pain. Will start toradol and roxicodone as patient needs to ambulate. Cont seroquel CVS: NSR, will wean off dobutamine today. On Lipitor/ASA/Plavix/ BB held until tomorrow once off inotropes Pulm: Needs aggressive ambulation, IS and pulm toilet- heavy smoker since age 13. Cont nebulizers and wean O2 for sats >92%. GI: Heart Healthy DM2 Diet-- +flatus -BM Renal: Lasix TID - + metolazone x1 today ID: Cont CTX for 7 day course for PNA - WBC remains around 16- afebrile D/L/T: PW VVI Back up, Osorio, wires : Osorio remains in place per . Will await their reccs for further management in the setting of recent bladder surgery Prophylaxis: Lovenox Dispo: Need SW assessment. PT/OT to eval and treat. Patient already states he is only going home. Has 2 sons and a at home but is disabled. Home early next week. Eleonora Duarte NP Cardiothoracic Surgery [facility] Cosigned by Rhina Granados MD at 05/09/2021 6:42 PM STAFF FORESTER F FORESTER F FORESTER * Tiana Spence NP - 05/09/2021 9:33 AM CST Daily Progress SUBJECTIVE: Mr. Alvarado is resting in bed, NAD Mild incisional discomfort. C/o my mouth and tongue are raw and hurt -> no evidence of thrush on exam. Denies SOB, dizziness, palpitations OBJECTIVE: Vitals: 05/09/21 0408 05/09/21 0600 05/09/21 0742 05/09/21 0800 BP: 116/68 112/57 BP Location: Right arm Right arm Patient Position: Lying Lying Pulse: 86 86 78 Resp: 18 18 Temp: 36.6 ??C (97.9 ??F) 37.1 ??C (98.7 ??F) TempSrc: Oral Oral SpO2: 90% 93% Weight: 79.8 kg (176 lb) Height: Intake/Output Summary (Last 24 hours) at 05/09/2021 0933 Last data filed at 05/09/2021 0745 Gross per 24 hour Intake 320.91 ml Output 3050 ml Net -2729.09 ml Scheduled Medications Medication Dose Route Frequency ??? aspirin chewable tablet 324 mg 324 mg oral Daily ??? atorvastatin (LIPITOR) tablet 80 mg 80 mg oral Nightly ??? cefTRIAXone (ROCEPHIN) 2,000 mg/20 mL in sterile water (premix) 2,000 mg 2,000 mg intravenous Q24H ??? clopidogreL (PLAVIX) tablet 75 mg 75 mg oral Daily ??? docusate sodium (COLACE) capsule 100 mg 100 mg oral BID ??? enoxaparin (LOVENOX) syringe 40 mg 40 mg subcutaneous Daily-2100 ??? furosemide (LASIX) 10 mg/mL injection 40 mg 40 mg intravenous Q8H ??? guaiFENesin ER (MUCINEX) extended release tablet 600 mg 600 mg oral BID ??? insulin glargine (LANTUS, SEMGLEE) 100 unit/mL injection 10 Units 10 Units subcutaneous Nightly ??? insulin lispro (HumaLOG, ADMELOG) 100 unit/mL injection 0-5 Units 0-5 Units subcutaneous Q4H ??? metOLazone (ZAROXOLYN) tablet 10 mg 10 mg oral Once ??? pantoprazole DR (PROTONIX) extended release tablet 40 mg 40 mg oral Daily ??? polyethylene glycol (MIRALAX) packet 17 g 17 g oral Daily ??? potassium chloride ER (KLOR-CON) extended release tablet 40 mEq 40 mEq oral BID ??? QUEtiapine (SEROquel) tablet 25 mg 25 mg oral Nightly ??? sodium chloride 0.9% flush 0.5-20 mL 0.5-20 mL intra-catheter Q8H LEAH LABS: Recent Labs Lab Units 05/09/21 0612 WBC K/cumm 16.0* HEMOGLOBIN g/dL 11.4* HEMATOCRIT % 34.9* PLATELETS K/cumm 294 Recent Labs Lab Units 05/09/21 0756 05/09/21 0612 05/09/21 0358 05/04/21 0803 05/04/21 0247 SODIUM mmol/L -- 131* -- < > 131* POTASSIUM PLASMA mmol/L -- 3.7 -- < > 4.0 CHLORIDE mmol/L -- 92* -- < > 100 CO2 mmol/L -- 26 -- < > 20* ANIONGAP mmol/L -- 13 -- < > 11 GLUCOSE mg/dL -- 174 -- < > 231* POC GLUCOSE MONITOR mg/dL 162 -- < > < > -- BUN SERUM mg/dL -- 17 -- < > 7* CREATININE mg/dL -- 0.78* -- < > 0.58* CALCIUM mg/dL -- 9.4 -- < > 8.5 ALBUMIN g/dL -- -- -- -- 3.1* ALK PHOS Units/L -- -- -- -- 69 ALT Units/L -- -- -- -- 18 AST Units/L -- -- -- -- 50 BILIRUBIN TOTAL mg/dL -- -- -- -- 0.4 < > = values in this interval not displayed. No results found for: BNP No results found for: TROPONINI Exam ?? General: in no apparent distress and well developed Neuro: Alert and oriented x 3, moves all extremities HEENT: normocephalic, atraumatic, thyroid not enlarged. Neck: I do not appreciate JVD. Lungs: symmetric, unlabored, coarse, scattered crackles bases to auscultation bilaterally Heart: S1,S2, regular rate & rhythm, no murmurs, rubs, or gallops Abdomen: soft, non-tender, non-distended, bowel sounds present Extremities: trace BLE edema, palpable peripheral pulses BL. RLE donor sites intact Neurologic: No focal deficits Skin: sternotomy with dressing intact, pacing wires, RLE donor sites ?? ECHO: 05/07/21 Conclusions: Reduced left ventricular cavity size. Mild global left ventricular systolic dysfunction. Ejection fraction is measured at 42 %. These segments of the LV are hypokinetic: apical anterior segment. Trivial pericardial effusion. No echocardiographic evidence to suggest pericardial tamponade ? ASSESSMENT/PLAN: Coronary artery disease -s/p CABG post STEMI -??underwent four-vessel bypass ??MAE to the LAD, sequential saphenous vein graft to diagonal and obtuse marginal and a vein graft to the PDA. -remains on low dose dobutamine -paced rhythm -on IV diuretics ?? Moderate LV dysfunction -??On lasix, low dose dobutamine- will defer to CTS -Beta blockers, POLINA once off dobutamine. -repeat ECHO 05/07 EF 42% (see above) ?Nonsustained ventricular tachycardia -no recurrence of VT -K 3.7, Mg 2.0. Supplement to keep K >/= 4.0, Mg >/= 2.0 ?Diabetes mellitus -?on lantus and SSI ?? COPD: ?? -on?O2 NC 2 L ?? Dyslipidemia -?Continue atorvastatin. ?PAD -?Stable ? Recent bladder tumor removal: ?? -??Urology is following.H/H stable ?? Anemia -Hb 11.4 (10.5) (8.6) -monitor ?? Oral mucositis -no evidence of thrush on exam - my mouth and tongue are raw and hurt -magic mouthwash PRN ? Tiana Spence NP [facility] 05/09/2021 9:33 AM F FORESTER * August Colin MD - 05/09/2021 7:31 AM CST Pulmonary Daily Progress Chief complaint/reason for consult: Respiratory failure. Interval History: Feels better On 3 L of supplemental oxygen with saturation 90% Has some left-sided chest discomfort which she says is unchanged Not coughing up much sputum Hematuria associated with osorio He is on dobutamine infusion Presenting History: 60 yo man w COPD, DM, CAD/stents admitted 05/01/21 with chest pain. Had recent hematuria as well. Workup revealed an acute MT. Cath showed multi-vessel CAD. Had balloon pump placed. CABG x 4 done on 05/04/21. He was continued on mechanical ventilation and self extubated this AM (05/05/21). He is on multiple pressors. Sedated with precedex. Some tachypnea. A balloon pump is in place. Current tobacco use. COPD listed as prior diagnosis. No inhalers on home med list. Allergies: Allergies Allergen Reactions ??? Metoclopramide Medications: Scheduled Meds:aspirin, 324 mg, oral, Daily atorvastatin, 80 mg, oral, Nightly cefTRIAXone, 2,000 mg, intravenous, Q24H clopidogreL, 75 mg, oral, Daily docusate sodium, 100 mg, oral, BID enoxaparin, 40 mg, subcutaneous, Daily-2100 furosemide, 40 mg, intravenous, Q8H guaiFENesin ER, 600 mg, oral, BID insulin glargine, 10 Units, subcutaneous, Nightly insulin lispro, 0-5 Units, subcutaneous, Q4H pantoprazole DR, 40 mg, oral, Daily polyethylene glycol, 17 g, oral, Daily potassium chloride ER, 40 mEq, oral, BID QUEtiapine, 25 mg, oral, Nightly sodium chloride 0.9%, 0.5-20 mL, intra-catheter, Q8H LEAH Continuous Infusions:DOButamine, 1 mcg/kg/min, Last Rate: 1 mcg/kg/min (05/08/21 1011) PRN Meds:.??? acetaminophen ? ? al & mag hydroxide nyfswqcdfyc-ogoxmbazdsxkwho-hpadzbvua-nystatin ??? albumin ??? albuterol ??? dextrose OR dextrose ??? glucagon ??? ondansetron ??? traMADoL ROS Above review of system reviewed on 05/09/2021 Vitals: Vitals: 05/09/21 0217 05/09/21 0400 05/09/21 0408 05/09/21 0600 BP: 104/67 116/68 BP Location: Right arm Patient Position: Lying Pulse: 81 86 86 Resp: 18 Temp: 36.6 ??C (97.9 ??F) TempSrc: Oral SpO2: 90% Weight: 79.8 kg (176 lb) Height: Temp (24hrs), Av.6 ??C (97.8 ??F), Min:36.4 ??C (97.5 ??F), Max:36.7 ??C (98.1 ??F) Intake/Output Summary (Last 24 hours) at 05/09/2021 0731 Last data filed at 05/09/2021 0600 Gross per 24 hour Intake 560.91 ml Output 3000 ml Net -2439.09 ml Physical Exam Constitutional: General: He is not in acute distress. Appearance: He is well-developed. HENT: Head: Normocephalic and atraumatic. Eyes: Conjunctiva/sclera: Conjunctivae normal. Neck: Thyroid: No thyromegaly. Cardiovascular: Rate and Rhythm: Normal rate and regular rhythm. Heart sounds: No murmur heard. Pulmonary: Effort: Pulmonary effort is normal. No respiratory distress. Breath sounds: Normal breath sounds. No stridor. No wheezing or rales. Chest: Comments: Sternotomy incision Abdominal: General: Bowel sounds are normal. Palpations: Abdomen is soft. Skin: General: Skin is warm and dry. Neurological: Mental Status: He is alert. Lab/Radiology/Diagnostic Review: Labs: Recent Labs Lab Units 05/09/21 0612 05/08/21 0555 05/07/21 0421 05/05/21 1204 05/05/21 0419 WBC K/cumm 16.0* 16.2* 16.6* < > 13.2* HEMOGLOBIN g/dL 11.4* 10.5* 8.6* < > 10.7* HEMATOCRIT % 34.9* 31.0* 25.5* < > 30.4* PLATELETS K/cumm 294 247 197 < > 191 NEUTROS PCT % -- -- -- -- 84.2 LYMPHS PCT % -- -- -- -- 3.1 MONOS PCT % -- -- -- -- 11.2 EOS PCT % -- -- -- -- 0.2 < > = values in this interval not displayed. Recent Labs Lab Units 05/09/21 0612 05/09/21 0358 05/09/21 0030 05/08/21 0741 05/08/21 0555 05/07/21 0855 05/07/21 0421 05/04/21 0803 05/04/21 0247 05/03/21 0736 05/03/21 0419 SODIUM mmol/L 131* -- -- -- 131* -- 137 < > 131* < > 136 POTASSIUM PLASMA mmol/L 3.7 -- -- -- 3.2* -- 3.3 < > 4.0 < > 4.0 CHLORIDE mmol/L 92* -- -- -- 94* -- 103 < > 100 < > 105 CO2 mmol/L 26 -- -- -- 25 -- 18* < > 20* < > 19* ANIONGAP mmol/L 13 -- -- -- 12 -- 16* < > 11 < > 12 GLUCOSE mg/dL 174 -- -- -- 191 < > 152 < > 231* < > 115 POC GLUCOSE MONITOR mg/dL -- 187 202* < > -- < > -- < > -- < > -- BUN SERUM mg/dL 17 -- -- -- 13 -- 16 < > 7* < > 6* CREATININE mg/dL 0.78* -- -- -- 0.59* -- 0.59* < > 0.58* < > 0.51* CALCIUM mg/dL 9.4 -- -- -- 8.6 -- 8.1* < > 8.5 < > 8.6 ALBUMIN g/dL -- -- -- -- -- -- -- -- 3.1* -- 3.2* ALK PHOS Units/L -- -- -- -- -- -- -- -- 69 -- 70 ALT Units/L -- -- -- -- -- -- -- -- 18 -- 23 AST Units/L -- -- -- -- -- -- -- -- 50 -- 98* BILIRUBIN TOTAL mg/dL -- -- -- -- -- -- -- -- 0.4 -- 0.4 < > = values in this interval not displayed. Recent Labs Lab Units 05/05/21 1605 05/05/21 1204 05/05/21 1015 PH ART 7.43 7.44 7.45 PCO2 ART mmHg 29* 30* 29* PO2 ART mmHg 82* 66* 75* HCO3 ART (CALC) mmol/L 21 22 22 BASE EXC ART mmol/L -4 -3 -4 O2 SAT ART (JOELLE) % 97* 94 96* Imaging: CXR 05/09 pulmonary vascular congestion Other diagnostic tests: I have personally reviewed above laboratory findings, chest imaging, and diagnostic tests 05/09/2021 Assessment and Plan: Acute respiratory failure Acute MT w CAD s/p CABG x 4 on 05/04/21, past hx multiple stents Cardiogenic shock Cardiomyopathy EF 40% V fib Hx COPD Anemia Infiltrates: edema v pna, tracheal aspirate w yeast ?? Recs: Oxygen as required. Wean as tolerated Incentive spirometry abx coverage for pna Scheduled bronchodilators Follow CXR ??Dobutamine, diuresis Chart reviewed F FORESTER * Tiana Spence NP - 05/08/2021 4:12 PM CST Daily Progress SUBJECTIVE: Mr. Alvarado is resting in bed, NAD C/o Mild incisional pain, productive cough, and my mouth and tongue are raw and hurt -> no evidence of thrush on exam. 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 albuterol 2.5 mg /3 mL (0.083 %) nebulizer solution 2.5 mg 2.5 mg nebulization Q4H LEAH (RT) ??? aspirin chewable tablet 324 mg 324 mg oral Daily ??? atorvastatin (LIPITOR) tablet 80 mg 80 mg oral Nightly ??? cefTRIAXone (ROCEPHIN) 2,000 mg/20 mL in sterile water (premix) 2,000 mg 2,000 mg intravenous Q24H ??? clopidogreL (PLAVIX) tablet 75 mg 75 mg oral Daily ??? docusate sodium (COLACE) capsule 100 mg 100 mg oral BID ??? enoxaparin (LOVENOX) syringe 40 mg 40 mg subcutaneous Daily-2099 ??? furosemide (LASIX) 10 mg/mL injection 40 mg 40 mg intravenous Q8H ??? insulin glargine (LANTUS, SEMGLEE) 100 unit/mL injection 10 Units 10 Units subcutaneous Nightly ??? insulin lispro (HumaLOG, ADMELOG) 100 unit/mL injection 0-5 Units 0-5 Units subcutaneous Q4H ??? pantoprazole DR (PROTONIX) extended release tablet 40 mg 40 mg oral Daily ??? polyethylene glycol (MIRALAX) packet 17 g 17 g oral Daily ??? potassium chloride ER (KLOR-CON) extended release tablet 40 mEq 40 mEq oral BID ??? QUEtiapine (SEROquel) tablet 25 mg 25 mg oral Nightly ??? sodium chloride 0.9% flush 0.5-20 mL 0.5-20 mL intra-catheter Q8H LEAH LABS: Recent Labs Lab Units 05/08/21 0555 WBC K/cumm 16.2* HEMOGLOBIN g/dL 10.5* HEMATOCRIT % 31.0* PLATELETS K/cumm 247 Recent Labs Lab Units 05/08/21 1201 05/08/21 0741 05/08/21 0555 05/04/21 0803 05/04/21 0247 SODIUM mmol/L -- -- 131* < > 131* POTASSIUM PLASMA mmol/L -- -- 3.2* < > 4.0 CHLORIDE mmol/L -- -- 94* < > 100 CO2 mmol/L -- -- 25 < > 20* ANIONGAP mmol/L -- -- 12 < > 11 GLUCOSE mg/dL -- -- 191 < > 231* POC GLUCOSE MONITOR mg/dL 223* < > -- < > -- BUN SERUM mg/dL -- -- 13 < > 7* CREATININE mg/dL -- -- 0.59* < > 0.58* CALCIUM mg/dL -- -- 8.6 < > 8.5 ALBUMIN g/dL -- -- -- -- 3.1* ALK PHOS Units/L -- -- -- -- 69 ALT Units/L -- -- -- -- 18 AST Units/L -- -- -- -- 50 BILIRUBIN TOTAL mg/dL -- -- -- -- 0.4 < > = values in this interval not displayed. Recent Labs Lab Units 05/02/21 0032 CHOLESTEROL mg/dL 139 TRIGLYCERIDES mg/dL 105 HDL mg/dL 33* No results found for: BNP No results found for: TROPONINI Exam General: in no apparent distress and well developed and well nourished Neuro: Alert and oriented x 3, moves all extremities HEENT: normocephalic, atraumatic, thyroid not enlarged. Neck: I do not appreciate JVD. Lungs: symmetric, unlabored, coarse to auscultation bilaterally Heart: S1,S2, regular rate & rhythm, no murmurs, rubs, or gallops Abdomen: soft, non-tender, non-distended, bowel sounds present Extremities: no LE edema, palpable peripheral pulses BL Neurologic: No focal deficits ECHO: 05/07/21 Conclusions: Reduced left ventricular cavity size. Mild global left ventricular systolic dysfunction. Ejection fraction is measured at 42 %. These segments of the LV are hypokinetic: apical anterior segment. Trivial pericardial effusion. No echocardiographic evidence to suggest pericardial tamponade ASSESSMENT/PLAN: Coronary artery disease -s/p CABG post STEMI - underwent four-vessel bypass MAE to the LAD, sequential saphenous vein graft to diagonal and obtuse marginal and a vein graft to the PDA. -remains on low dose dobutamine -paced rhythm -on IV diuretics ?? Moderate LV dysfunction - On lasix, low dose dobutamine -Beta blockers, POLINA once off dobutamine. -repeat ECHO 05/07 EF 42% (see above) ?? Nonsustained ventricular tachycardia -no recurrence of VT -K 3.2, Mg 1.9 supplemented. Supplement to keep K >/= 4.0, Mg >/= 2.0 ?? Diabetes mellitus - ??on lantus and SSI ?? COPD: ?? -on O2 NC 2 L ?? Dyslipidemia - ??Continue atorvastatin. ?PAD - ??Stable ? Recent bladder tumor removal: ?? -??Urology is following.H/H stable ?? Anemia -Hb 10.5 (8.6) -monitor Oral mucositis -no evidence of thrush on exam - my mouth and tongue are raw and hurt -magic mouthwash ordered. D/w EFREN Maddox CTS Tiana Spence NP [facility] 05/08/2021 4:12 PM F FORESTER * Monica Morales RD - 05/08/2021 3:22 PM CST Nutrition Assessment Reason for Assessment: Follow Up Encounter Date: 05/08/21 3:22 PM Nutrition Assessment and Plan: Patient is a 60 y.o. male. Admit Dx: STEMI. Admitted on 05/01/2021, current LOS is 7 days. Pt s/p CABG x 4 on 05/04. +Sx incision x 2 (chest, R leg). Pt transferred out of the ICU today to 9th floor.Was trying to rest when RD entered room. Reported good appetite prior to Sx which has declined since Sx, 0-50% intakes of meals on heart healthy 2000kcal consistent CHO diet. Dislikes Glucerna flavor. Glu 152-223 over the last 24hrs. No N/V/D/C. GI: hypoactive BS, no BM recorded. Will continue heart healthy, 2000kcal consistent CHO diet and modify ONS to Ensure High PRO per flavor preferences. FtEmW2h of 13.5. RD provided Steps To Your Health, Building a balanced meal, and My Meal Plan handouts at bedside as pt was not interested in verbal edu at this time. Will attempt verbal edu prior to discharge and continue to follow nutrition parameters and plans of care. Current diet order: Adult Diet Special; Low Fat, Low Chol, Low Na; Consistent Carb 2000 maggie Pt intake is inadequate. PO intakes: 50% x1; 25% x1; 0% x2 Nutrition Diagnosis 1: Inadequate oral intake Related to: Loss of appetite,Recent surgery Evidencedby: Patient interview,PO under 50% Nutrition Diagnosis 2: Increased nutrient needs (protein)Related to: Recent surgeryEvidenced by: Physical finding ?? Interventions: Communication,Encouragement,Modify supplement (left heart healthy, consistent CHOhandouts at bedside and modifying Glucerna to Ensure High PRO) ?? Monitoring and Evaluation: Appetite,Supplement tolerance,Blood glucoses,Discharge plans,Weight changes,Labs,PO intake,Plan of care,I/O ?? Goals: Adequate nutrition to meet estimated needs by next assessment,Oral intake to meet 75% estimated nutritional needs by next assessment,Tolerance of medical food supplement by next assessment,Patient/caregiver able to teach back understanding of role of diet in disease process prior to discharge Estimated needs: ?? Total Kcal/kg Estimated Needs : 2185 based on Kcal/k. Type of Weight Used for Estimated Kcals: Current ?? Total Protein Estimated Needs (gm): 104.88 Protein Needs Based on g/k.2 Type of Weight Used for Estimated Protein : Current. ?? Estimated Fluid Needs ?? Type of Weight Used for Estimated Fluid Needs: Current ?? Fluid Needs Based on : 1 ml/kcal ?? Total Fluid Estimated Needs: 2185 Objective Anthropometrics Weight: 87.4 kg (192 lb 10.9 oz) Admission Weight : 86.2 kg Weight Change: -4.00 kg (-8.81 lbs) IBW/kg (Calculated) : 72.6 kg Height: 175.3 cm (5' 9.02 ) Weight in (lb) to have BMI = 25: 169 BMI (Calculated): 28.4 BMI Classification: BMI 25.0 - 29.9 Overweight 3 Day I/O Summary 05/06 1900 - 05/08 0659 In: 1058.7 [P.O.:100; I.V.:567] Out: 7250 [Urine:6910] Temp: 36.4 ??C (97.5 ??F) Minute Ventilation (L/min): 12.7 L/min Past Medical History: Diagnosis Date ??? Chronic obstructive pulmonary disease (CMS/HCC) (HCC) COPD ??? Coronary artery disease ??? Diabetes mellitus (HCC) ??? H/O heart artery stent 2006 ??? Hypertension Hypertension ??? ST elevation (STEMI) myocardial infarction ([facility]) 05/01/2021 Medications and Lab Review: Scheduled Meds: albuterol, 2.5 mg, nebulization, Q4H LEAH (RT) aspirin, 324 mg, oral, Daily atorvastatin, 80 mg, oral, Nightly cefTRIAXone, 2,000 mg, intravenous, Q24H clopidogreL, 75 mg, oral, Daily docusate sodium, 100 mg, oral, BID enoxaparin, 40 mg, subcutaneous, Daily-2100 furosemide, 40 mg, intravenous, Q8H insulin glargine, 10 Units, subcutaneous, Nightly insulin lispro, 0-5 Units, subcutaneous, Q4H pantoprazole DR, 40 mg, oral, Daily polyethylene glycol, 17 g, oral, Daily potassium chloride ER, 40 mEq, oral, BID QUEtiapine, 25 mg, oral, Nightly sodium chloride 0.9%, 0.5-20 mL, intra-catheter, Q8H LEAH Continuous Infusions: DOButamine, 1 mcg/kg/min, Last Rate: 1 mcg/kg/min (05/08/21 1011) Sodium Date Value Ref Range Status 05/08/2021 131 (L) 135 - 145 mmol/L Final Potassium, pl Date Value Ref Range Status 05/08/2021 3.2 (L) 3.3 - 4.9 mmol/L Final BUN Date Value Ref Range Status 05/08/2021 13 8 - 25 mg/dL Final Creatinine Date Value Ref Range Status 05/08/2021 0.59 (L) 0.80 - 1.30 mg/dL Final Phosphorus, pl Date Value Ref Range Status 05/08/2021 3.3 2.3 - 4.5 mg/dL Final Magnesium Date Value Ref Range Status 05/08/2021 1.9 1.4 - 2.5 mg/dL Final Calcium Date Value Ref Range Status 05/08/2021 8.6 8.5 - 10.3 mg/dL Final Lab Results Component Value Date HGBA1C 13.5 (H) 05/03/2021 Lab Results Component Value Date GLUCOSE 223 (H) 05/08/2021 GLUCOSE 184 05/08/2021 GLUCOSE 191 05/08/2021 GLUCOSE 152 05/08/2021 GLUCOSE 158 05/08/2021 GLUCOSE 214 (H) 05/07/2021 GLUCOSE 152 05/07/2021 GLUCOSE 169 05/06/2021 GLUCOSE 163 05/06/2021 GLUCOSE 203 (H) 05/06/2021 Nursing Assessment: Bowel Sounds (All Quadrants): Hypoactive Marko Scale Score: 17 Skin Integrity: Surgical incision Diet Instructions Recommend to eat a generally healthy diet that includes a variety of fruits, vegetables, whole-grain breads, low-fat dairy products, beans, lean meats, and fish. Avoid saturated and trans fats and limit sodium to less than 2,300 mg per day. Avoid foods like desserts, fast food, fried/breaded foods,deli meats, sausage, ruiz, and gravies/sauces. For a Consistent Carbohydrate Diet: Aim to consume 3 meals each day with 60-75 grams of carbohydrate at each one, avoid skipping meals. Avoid sugary drinks like lemonade, regular soda, gatorade, and sweet tea and drink water throughout the day.Monitor your blood sugar and take insulin and medication as directed by your doctor. Call [phone] to speak with a dietitian about any diet related concerns. Recommend to follow up with outpatient nutrition counseling, ask your doctor for a referral and call [phone] to make an appointment. Nutrition Follow-Up : 05/12/21 (verbal edu as able on tuesday) Monica Morales RD,LD F FORESTER * Laly Lopes MD - 05/08/2021 3:04 PM CST Cardiothoracic Surgery Progress Note Deepak Alvarado 1960 Hospital DAY#7 2 Days Post-Op s/p: Procedures: * CORONARY ARTERY BYPASS GRAFT x 4 - LEFT INTERNAL MAMMARY ARTERY TAKEDOWN, RIGHT SAPHENOUS VEIN ENDOHARVEST, CARDIOPULMONARY BYPASS, TRANSESOPHAGEAL ECHOCARDIOGRAM Subjective: Doing well overnight. 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 No complaints. OBJECTIVE: Vitals: Temp: [36.4 ??C (97.5 ??F)] 36.4 ??C (97.5 ??F) Pulse: [70-90] 70 BP: (80-129)/(49-80) 115/66 Resp: [16-32] 18 SpO2: [86 %-100 %] 100 % SVO2: [32 %-62 %] 32 % Arterial Line BP: (87-147)/(35-61) 95/57 PAP: 17/6 (05/08 08) CVP: 0 mmHg (05/08 800) PCWP: -- CO: 4.6 L/min (05/08 0410) CI: 2.2 L/min/m2 (05/08 041) SVO2: 32 % (05/08 0630) Pacemaker Overdrive Pacing: -- Cardiac Rhythm: Normal sinus rhythm (05/08 1316) Pacer Mode: VVI (05/08 800) Wt Readings from Last 3 Encounters: 05/08/21 87.4 kg (192 lb 10.9 oz) 08/27/13 114.3 kg (252 lb) 10/19/12 111.6 kg (246 lb) I/O last 2 completed shifts: In: 953.7 [P.O.:100; I.V.:462; Blood:391.7] Out: 6060 [Urine:6010; Chest Tube:50] Physical Exam HENT: Mouth/Throat: Mouth: Mucous membranes are moist. Eyes: Pupils: Pupils are equal, round, and reactive to light. Cardiovascular: Rate and Rhythm: Normal rate and regular rhythm. Pulses: Normal pulses. Heart sounds: Normal heart sounds. Pulmonary: Effort: Pulmonary effort is normal. Breath sounds: Normal breath sounds. Musculoskeletal: General: Normal range of motion. Right lower leg: No edema. Left lower leg: No edema. Neurological: General: No focal deficit present. Mental Status: He is alert and oriented to person, place, and time. Psychiatric: Behavior: Behavior normal. Access: central line Recent Labs Lab Units 05/08/21 0555 05/07/21 0421 05/06/21 1312 WBC K/cumm 16.2* 16.6* 16.1* HEMOGLOBIN g/dL 10.5* 8.6* 9.0* HEMATOCRIT % 31.0* 25.5* 26.5* PLATELETS K/cumm 247 197 202 Recent Labs Lab Units 05/08/21 0555 05/07/21 0421 05/06/21 2314 SODIUM mmol/L 131* 137 138 POTASSIUM PLASMA mmol/L 3.2* 3.3 3.6 CHLORIDE mmol/L 94* 103 104 CO2 mmol/L 25 18* 19* BUN SERUM mg/dL 13 16 17 CREATININE mg/dL 0.59* 0.59* 0.62* CALCIUM mg/dL 8.6 8.1* 8.3* Recent Labs Lab Units 05/05/21 0021 05/04/21 2135 05/04/21 0247 PROTIME (PT) sec 14.4* 14.8* 13.4 INR 1.3* 1.3* 1.2 APTT sec 33 30 57* Recent Labs Lab Units 05/05/21 1605 05/05/21 1204 05/05/21 1015 PH ART 7.43 7.44 7.45 PCO2 ART mmHg 29* 30* 29* PO2 ART mmHg 82* 66* 75* BASE EXC ART mmol/L -4 -3 -4 Drips: BAND SAWING MACHINE OPERATOR 2 Imaging: Today's CXR significantly improved pulmonary edema Assessment and Plan: 60 y.o. 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 PRN hydral for HTN. ASA, statin, plavix. Pulm: Wean O2 as tolerated GI: CLD Renal: Lasix TID ID: Cont CTX for 7 day course for PNA D/L/T: CVC Prophylaxis: Lovenox Dispo: TTF Laly Lopes MD Cardiothoracic Surgery [facility] Cosigned by Rhina Granados MD at 05/08/2021 5:29 PM STAFF FORESTER F FORESTER F FORESTER * Ellen Shore PTA - 05/08/2021 1:51 PM CST Physical Therapy PT PROGRESS NOTE Deepak Alvarado 60 y.o. 1960 Past Medical History: Diagnosis Date ??? Chronic obstructive pulmonary disease (CMS/HCC) ([facility]) COPD ??? Coronary artery disease ??? Diabetes mellitus (HCC) ??? H/O heart artery stent 2006 ??? Hypertension Hypertension ??? ST elevation (STEMI) myocardial infarction ([facility]) 05/01/2021 No past surgical history on file. Patient Active Problem List Diagnosis ??? ST elevation myocardial infarction (STEMI) ([facility]) TIME IN: 1351 TIME OUT: 1418 SUBJECTIVE Patient states he already did therapy. And requests doing it tomorrow instead. MENTAL STATUS/ORIENTATION: drowsy; oriented x4 PAIN: Pre-therapy pain level: unspecified level Pain location: throat Pain intervention: none needed Post-therapy pain level/response to intervention: unchanged OBJECTIVE PRECAUTIONS: fall, sternal, cardiac APPEARANCE/POSTURE: male patient seated in chair with IV, O2, external pacer, urinary catheter, alarm in place. VITAL SIGNS: Resting heart rate: 85 BPM Post-activity heart rate: 87 BPM Resting O2 sat: 91% on 2L. O2 Post-activity O2 sat: 93% following amb on 2L. O2 MOBILITY DOCUMENTATION: Bed Mobility/Transfers: sit to supine with min assist. Sit to/from stand with CGA and vc's for hand placement and sternal precautions. Gait: amb with w/w with CGA at slow pace, narrow JAZMYN, uneven siabell, lateral trunk sway, 230'x1 APPEARANCE/POSTURE (end of session): supine in bed with lines as upon entering room, alarm in placeand active, call light in reach. EDUCATION: Transfers, bed mobility, gait, PLB, sternal precautions RESPONSE TO EDUCATION: needs reinforcement ASSESSMENT Activity tolerance/response to P.T.: patient is oriented x4, but it is questionable whether patientunderstood education at this time, requiring tactile cues for safety and sternal precautions. Barriers to learning: Physical and Cognitive Barriers to discharge: Cognitive deficit and Decreased endurance Patient continues progressing toward previously set goals which remain appropriate at this time. PLAN Patient to be seen for P.T. 3-5 times per week to address previously established deficits and goals. DISCHARGE LOCATION RECOMMENDATIONS: INPATIENT REHABILITATION PENDING QUALIFYING CRITERIA If this is the last note, please consider this the discharge summary. Cosigned by Sandee Paez, PT at 05/08/2021 3:17 PM STAFF FORESTER F FORESTER F FORESTER * Romeo Nagel RN - 05/08/2021 12:02 PM CST Pt transferred to [facility][note 3]. Pt tolerated the transfer well. DEEPIKA Yu given bedside report. RN had no questions or concerns. F FORESTER * Anibal Lara MD - 05/08/2021 11:53 AM CST Hospitalist Progress Note Name: Deepak Alvarado Admission Date: 05/01/2021 Today's Date: 05/08/2021 Subjective: Pt seen and examined while in the ICU, Clinical course: Overall pt condition has improved. Pt will be transferred to 9th floor, had Osorio with blood urine and still on Dobutamine gtt Objective: Vitals: 05/08/21 0800 05/08/21 0900 05/08/21 1000 05/08/21 1149 BP: 116/60 122/63 93/57 115/66 BP Location: Right arm Patient Position: Lying Pulse: 83 78 83 70 Resp: Temp: 36.4 ??C (97.5 ??F) TempSrc: Oral SpO2: 96% 91% 95% 100% Weight: Height: Wt Readings from Last 3 Encounters: 05/08/21 87.4 kg (192 lb 10.9 oz) 08/27/13 114.3 kg (252 lb) 10/19/12 111.6 kg (246 lb) I/O last 3 completed shifts: In: 1058.7 [P.O.:100; I.V.:567; Blood:391.7] Out: 7250 [Urine:6910; Chest Tube:340] I/O this shift: In: 360 [P.O.:360] Out: 200 [Urine:200] Scheduled Meds Current Facility-Administered Medications Medication Dose Route Frequency Provider Last Rate Last Admin ??? acetaminophen (TYLENOL) tablet 1,000 mg 1,000 mg oral Q6H PRN Rhina Granados MD 1,000 mg at107/07/20 1222 ??? albumin 5 % bottle 12.5 g 12.5 g intravenous Q15 Min PRN Rhina Granados MD 12.5 g at 05/04/21 2300 ??? albuterol 2.5 mg /3 mL (0.083 %) nebulizer solution 2.5 mg 2.5 mg nebulization Q4H LEAH (RT) Rhina Granados MD 2.5 mg at 05/08/21 0752 ??? aspirin chewable tablet 324 mg 324 mg oral Daily Rhina Granados MD 324 mg at 05/08/21 0843 ??? atorvastatin (LIPITOR) tablet 80 mg 80 mg oral Nightly Rhina Granados MD 80 mg at 05/07/21 2035 ??? cefTRIAXone (ROCEPHIN) 2,000 mg/20 mL in sterile water (premix) 2,000 mg 2,000 mg intravenous Q24H Laly Lopes MD 2,000 mg at 05/07/21 1756 ??? clopidogreL (PLAVIX) tablet 75 mg 75 mg oral Daily Laly Lopes MD 75 mg at 05/08/21 0843 ??? dextrose oral liquid liquid 15 g 15 g oral Q15 Min PRN Rhina Granados MD Or ??? dextrose (D10W) 10% bolus 250 mL 250 mL intravenous Q15 Min PRN Rhina Granados MD ??? DOBUTamine in dextrose 5% (DOBUTREX) 1,000 mg/250 mL (4,000 mcg/mL) infusion (premix) 1 mcg/kg/min intravenous Continuous Rhina Granados MD 1.37 mL/hr at 05/08/21 1011 1 mcg/kg/min at 05/08/21 1011 ??? docusate sodium (COLACE) capsule 100 mg 100 mg oral BID Rhina Granados MD 100 mg at 05/08/21 0843 ??? enoxaparin (LOVENOX) syringe 40 mg 40 mg subcutaneous Daily-2100 Nimesh Evans MD 40 mg at 05/07/212034 ??? furosemide (LASIX) 10 mg/mL injection 40 mg 40 mg intravenous Q8H Rhina Granados MD 40 mg at 05/08/21 0843 ??? glucagon injection 1 mg 1 mg intramuscular Q30 Min PRN Rhina Granados MD ??? insulin glargine (LANTUS, SEMGLEE) 100 unit/mL injection 10 Units 10 Units subcutaneous NightlyMarek Mei, EFREN 10 Units at 05/07/212035 ??? insulin lispro (HumaLOG, ADMELOG) 100 unit/mL injection 0-5 Units 0-5 Units subcutaneous Q4H Marek Mei, ESCROW CLERK 1 Units at 05/08/21 0845 ??? ondansetron (ZOFRAN) injection 4 mg 4 mg intravenous Q6H PRN Rhina Granados MD ??? pantoprazole DR (PROTONIX) extended release tablet 40 mg 40 mg oral Daily Rhina Granados MD40 mg at 05/08/21 0843 ??? polyethylene glycol (MIRALAX) packet 17 g 17 g oral Daily Nimesh Evans MD 17 g at 05/08/21 0843 ??? potassium chloride ER (KLOR-CON) extended release tablet 40 mEq 40 mEq oral BID Rhina Granados MD 40 mEq at 05/08/21 1001 ??? QUEtiapine (SEROquel) tablet 25 mg 25 mg oral Nightly Rhina Granados MD 25 mg at 05/07/212034 ??? sodium chloride 0.9% flush 0.5-20 mL 0.5-20 mL intra-catheter Q8H LEAH Rhina Granados MD 10 mL at 05/08/21 0630 ??? traMADoL (ULTRAM) tablet 50 mg 50 mg oral Q4H PRN Rhina Granados MD 50 mg at 05/08/21 0342 DOButamine, 1 mcg/kg/min, Last Rate: 1 mcg/kg/min (05/08/21 1011) ??? acetaminophen ??? albumin ??? dextrose OR dextrose ??? glucagon ??? ondansetron ??? traMADoL Physical Exam: General: alert, cooperative, no distress, appears stated age HEENT: Head:normacephalic, Eyes: Perrla, EOMI bilaterally, nasal and oral mucosal pink and moist Heart: normal rate, regular rhythm, normal S1, S2, no murmurs, rubs, clicks or gallops Lungs: clear to auscultation, no wheezes or rales and unlabored breathing Abdomen: soft, nontender, nondistended, no masses or organomegaly Extremities: peripheral pulses normal, no pedal edema, no clubbing or cyanosis Neuro: alert, oriented x 3, no defects noted in general exam. Lab Data Laboratory review: Chemistry CMP: Lab Results Component Value Date BUNSER 13 05/08/2021 CALCIUM 8.6 05/08/2021 CO2 25 05/08/2021 CHLORIDE 94 (L) 05/08/2021 CREATININE 0.59 (L) 05/08/2021 GLUCOSE 184 05/08/2021 GLUCOSE 191 05/08/2021 POTASSIUM 3.2 (L) 05/08/2021 SODIUM 131 (L) 05/08/2021 , CBC: Lab Results Component Value Date WBC 16.2 (H) 05/08/2021 RBC 3.46 (L) 05/08/2021 HGB 10.5 (L) 05/08/2021 HCT 31.0 (L) 05/08/2021 MCV 89.6 05/08/2021 MCH 30.3 05/08/2021 MCHC 33.9 05/08/2021 RDWCV 14.0 05/08/2021 RDWSD 45.7 05/08/2021 MPV 11.3 05/08/2021 NRBCABS 0.00 05/08/2021 , Coags: No results found for: PT, PTT, APTT, FFN, FIBRINOGEN, INR, ACTIVATEDCL, Lipids: No resultsfound for: CHOL, CHLPL, HDL, LDLCALC, TRIG, CHOLHDL, Cardiac Enzymes: No results found for: CKTOTAL, CKMB, CKMBINDEX, TROPONINT and POC Glucose: Lab Results Component Value Date GLUCOSE 184 05/08/2021 GLUCOSE 191 05/08/2021 Home Medications have been reviewed and updated on pt's list Assessment and Plan Acute anterior STEMI with CAD , s/p PCI to LAD -s/p CABG x 4 05/04 given re thrombosis of existing stents -s/p IABP, removed 05/06 - cont with Dobutamine gtt -pt is on ASA, Plavix, statins , no BBs due to hypotension ?? Post CABG cardiogenic shock - s/p fluid resuscitation , Levophed -now on Dobutamine gtt ?? Ventricular fibrillation - briefly on 05/03 - treated with Amiodarone ; now on Dobutamine ?? Gross Hematuria - in a pt with hx of cystoscopy, -clot evacuation and transurethral resection of bladder tumor at [facility] -s/p 20??German three way catheter, urine still bloody -urology follows ?? Acute resp failure - self ext 05/05/21 -Lung infiltrates - pulm vascular congestion versus pneumoni -currently on Lasix IV and broad-spectrum antibiotics Rocephin -transitioned into NC and possible RA today ?? Type 2 diabetes.??- transitioned into SSI protocol And Lantus ?? Acute blood loss anemia ; -s/p PRBC transfusions in ICU -Hb today 10.5, monitor ?? Hx of Tobacco use. ?? Vitamin-D deficiency.- stable DVT prophylaxis :Lovenox Pt will need continued inpatient management for the above medical issues. Code status: full Anibal Hughes MD [facility] Hospitalist 05/08/2021 11:54 AM F FORESTER * Sheron Adams COTA - 05/08/2021 11:45 AM CST Occupational Therapy NOTE / SESSION TYPE: DAILY PROGRESS / TREATMENT Patient's Name: Deepak Alvarado Age / Sex: 60 y.o. / male [id number] 1960 Date of service: 05/08/21 TIME IN: 1149 TIME OUT: 1216 Patient Active Problem List Diagnosis ??? ST elevation myocardial infarction (STEMI) (HCC) Past Medical History: Diagnosis Date ??? Chronic obstructive pulmonary disease (CMS/HCC) (HCC) COPD ??? Coronary artery disease ??? Diabetes mellitus (HCC) ??? H/O heart artery stent 2006 ??? Hypertension Hypertension ??? ST elevation (STEMI) myocardial infarction (HCC) 05/01/2021 No past surgical history on file. Precautions (including weight-bearing): Fall risk, Sternal precautions and Cardiac precautions Subjective: You can call me anything except late for supper Pt needed verbal cues for sternal precautions when coughing. (use of bear) Therapy Pain: Pre-therapy pain level: 0 /10 Pain location: No pain - Location N/A Pain Intervention(s): No pain - Intervention N/A Post-therapy pain level: 0 /10 Pain scale reference: 0-10 SCALE Objective: Appearance: Presentation upon OT arrival: Patient Supine with head of bed elevated Presentation upon OT departure: Patient Supine with head of bed elevated Bed / Chair alarm in place and activated upon OT departure: Yes Call light within arms reach of patient at end of session: Yes Completed patient handoff and notified MANAGER RENTAL / RN, name: Aimee, of patient's location and functional status upon completion of session VITAL SIGNS: Heart rate at rest: 80 BPM Heart rate with activity: 82 BPM O2 saturations at rest: 87 % O2 saturations with activity: 93 % Oxygen LPM: initially room air; RN placed on 2 L O2 afterward. Cognitive / Perceptual: A O X 3 Mobility / Transfers: Bed Mobility: supine to sit with verbal cues for log rolling Transfer(s): Min- CGA from EOB to recliner. Living Skills / Other Activities: UE THERAPEUTIC EXERCISES: EXERCISE TYPE: CHEST MOBILIZATION MUSCLE GROUP(S): chest NUMBER OF REPETITIONS: 10 X 4 ex ASSIST LEVEL: INITIAL VISUAL DEMONSTRATION; verbal cues to slow down. LOCATION OF COMPLETION: seated EOB TOLERANCE: good ADDITIONAL ACTIVITIES: sternal precautions Caregiver Present: NO Education & Training Provided: ADL training, Bed mobility training, Functional transfer training and Balance training Assessment: Activity tolerance / response to OT session: GOOD PARTICIPATION, GOOD MOTIVATION and RECEPTIVE TO EDUCATION / TRAINING Progress towards goals: Please refer to care plan from this date for progress towards individual goals Plan: Therapy Plan: Rehab Potential (Prognosis): good Location: Inpatient rehabilitation pending qualify criteria Supervision: 24 hour Follow-up therapy recommendations: Skilled OT in Inpatient Rehabilitation setting ?? Frequency of therapy: 3-5 times / week ?? If this is the last note, consider this the discharge summary Sheron Turcios CAITIE Adams 05/08/21 Cosigned by Tamar Dennis OT at 05/08/2021 3:48 PM STAFF FORESTER F FORESTER F FORESTER * Ralf Tomlinson MD - 05/08/2021 10:40 AM CST Pulmonary Daily Progress Chief complaint/reason for consult: Respiratory failure. Interval History: Feels better comf on RA Pain controlled Presenting History: 60 yo man w COPD, DM, CAD/stents admitted 05/01/21 with chest pain. Had recent hematuria as well. Workup revealed an acute MT. Cath showed multi-vessel CAD. Had balloon pump placed. CABG x 4 done on 05/04/21. He was continued on mechanical ventilation and self extubated this AM (05/05/21). He is on multiple pressors. Sedated with precedex. Some tachypnea. A balloon pump is in place. Current tobacco use. COPD listed as prior diagnosis. No inhalers on home med list. Allergies: Allergies Allergen Reactions ??? Metoclopramide Medications: Scheduled Meds:albuterol, 2.5 mg, nebulization, Q4H LEAH (RT) aspirin, 324 mg, oral, Daily atorvastatin, 80 mg, oral, Nightly cefTRIAXone, 2,000 mg, intravenous, Q24H clopidogreL, 75 mg, oral, Daily docusate sodium, 100 mg, oral, BID enoxaparin, 40 mg, subcutaneous, Daily-2100 furosemide, 40 mg, intravenous, Q8H insulin glargine, 10 Units, subcutaneous, Nightly insulin lispro, 0-5 Units, subcutaneous, Q4H pantoprazole DR 40 mg, oral, Daily polyethylene glycol, 17 g, oral, Daily potassium chloride ER, 40 mEq, oral, BID QUEtiapine, 25 mg, oral, Nightly sodium chloride 0.9%, 0.5-20 mL, intra-catheter, Q8H LEAH Continuous Infusions:DOButamine, 1 mcg/kg/min, Last Rate: 1 mcg/kg/min (05/08/21 1011) PRN Meds:.??? acetaminophen ??? albumin ??? dextrose OR dextrose ??? glucagon ??? ondansetron ??? traMADoL ROS Above review of system reviewed on 05/08/2021 Vitals: Vitals: 05/08/21 0645 05/08/21 0800 05/08/21 0900 05/08/21 1000 BP: 116/60 122/63 93/57 BP Location: Patient Position: Pulse: 82 83 78 83 Resp: Temp: TempSrc: SpO2: 90% 96% 91% 95% Weight: Height: Temp (24hrs), Av.5 ??C (99.5 ??F), Min:37.5 ??C (99.5 ??F), Max:37.5 ??C (99.5 ??F) Intake/Output Summary (Last 24 hours) at 05/08/2021 1040 Last data filed at 05/08/2021 1011 Gross per 24 hour Intake 1313.67 ml Output 5960 ml Net -4646.33 ml Physical Exam Constitutional: General: He is not in acute distress. Appearance: He is well-developed. HENT: Head: Normocephalic and atraumatic. Eyes: Conjunctiva/sclera: Conjunctivae normal. Neck: Thyroid: No thyromegaly. Cardiovascular: Rate and Rhythm: Normal rate and regular rhythm. Heart sounds: No murmur heard. Pulmonary: Effort: Pulmonary effort is normal. No respiratory distress. Breath sounds: Normal breath sounds. No stridor. No wheezing or rales. Chest: Comments: Sternotomy incision Abdominal: General: Bowel sounds are normal. Palpations: Abdomen is soft. Skin: General: Skin is warm and dry. Neurological: Mental Status: He is alert. Lab/Radiology/Diagnostic Review: Labs: Recent Labs Lab Units 05/08/21 0555 05/07/21 0421 05/06/21 1312 05/05/21 1204 05/05/21 0419 05/02/21 0443 05/01/21 2219 WBC K/cumm 16.2* 16.6* 16.1* < > 13.2* < > 15.7* HEMOGLOBIN, POC -- -- -- -- -- < > -- HEMOGLOBIN g/dL 10.5* 8.6* 9.0* < > 10.7* < > 9.4* HEMATOCRIT % 31.0* 25.5* 26.5* < > 30.4* < > 28.2* HEMATOCRIT POC -- -- -- -- -- < > -- PLATELETS K/cumm 247 197 202 < > 191 < > 312 NEUTROS PCT % -- -- -- -- 84.2 -- 73.4 LYMPHS PCT % -- -- -- -- 3.1 -- 15.5 MONOS PCT % -- -- -- -- 11.2 -- 9.8 EOS PCT % -- -- -- -- 0.2 -- 0.6 < > = values in this interval not displayed. Recent Labs Lab Units 05/08/21 0741 05/08/21 0555 05/08/21 0408 05/07/21 0855 05/07/21 0421 05/07/21 0419 05/06/21 2314 05/04/21 0803 05/04/21 0247 05/03/21 0736 05/03/21 0419 05/02/21 0443 05/01/21 2219 SODIUM mmol/L -- 131* -- -- 137 -- 138 < > 131* < > 136 < > 134* POTASSIUM PLASMA mmol/L -- 3.2* -- -- 3.3 -- 3.6 < > 4.0 < > 4.0 < > 4.0 CHLORIDE mmol/L -- 94* -- -- 103 -- 104 < > 100 < > 105 < > 103 CO2 mmol/L -- 25 -- -- 18* -- 19* < > 20* < > 19* < > 19* ANIONGAP mmol/L -- 12 -- -- 16* -- 15 < > 11 < > 12 < > 12 GLUCOSE mg/dL -- 191 -- -- 152 < > 169 < > 231* < > 115 < > 157 POC GLUCOSE MONITOR mg/dL 184 -- 152 < > -- < > -- < > -- < > -- < > -- BUN SERUM mg/dL -- 13 -- -- 16 -- 17 < > 7* < > 6* < > 9 CREATININE mg/dL -- 0.59* -- -- 0.59* -- 0.62* < > 0.58* < > 0.51* < > 0.63* CALCIUM mg/dL -- 8.6 -- -- 8.1* -- 8.3* < > 8.5 < > 8.6 < > 8.1* ALBUMIN g/dL -- -- -- -- -- -- -- -- 3.1* -- 3.2* -- 3.2* ALK PHOS Units/L -- -- -- -- -- -- -- -- 69 -- 70 -- 64 ALT Units/L -- -- -- -- -- -- -- -- 18 -- 23 -- 28 AST Units/L -- -- -- -- -- -- -- -- 50 -- 98* -- 245* BILIRUBIN TOTAL mg/dL -- -- -- -- -- -- -- -- 0.4 -- 0.4 -- 0.3 < > = values in this interval not displayed. Recent Labs Lab Units 05/05/21 1605 05/05/21 1204 05/05/21 1015 PH ART 7.43 7.44 7.45 PCO2 ART mmHg 29* 30* 29* PO2 ART mmHg 82* 66* 75* HCO3 ART (CALC) mmol/L 21 22 22 BASE EXC ART mmol/L -4 -3 -4 O2 SAT ART (JOELLE) % 97* 94 96* Imaging: CXR 05/08: b inf/edema, opac L base Other diagnostic tests: I have personally reviewed above laboratory findings, chest imaging, and diagnostic tests 05/08/2021 Assessment and Plan: Acute respiratory failure Acute MT w CAD s/p CABG x 4 on 05/04/21, past hx multiple stents Cardiogenic shock Cardiomyopathy EF 40% V fib Hx COPD Anemia Infiltrates: edema v pna, tracheal aspirate w yeast ?? Recs: Oxygen as required Incentive spirometry abx coverage for pna Scheduled bronchodilators Follow CXR ?? Chart reviewed F FORESTER * Nimesh Evans MD - 05/08/2021 10:20 AM CST Images from the original note were not included. Critical Care Medicine Daily Progress Team: SICU [place] Team Subjective Interval events: No issues overnight, chronic back pain better controlled on current pain regimen. Persisting hematuria but urine appears news reporter in color. Hemoglobin stable post transfusion. O2 sats98% on 2 L nasal cannula with normal work of breathing. Hemodynamically stable, IABP remains in place, right groin areas soft and dressing intact. Distal lower extremities pulses palpable ?? 05/02/2021: NAJMA. Only complaints are of back pain from lying in bed. No chest pain shortness of breath, orthopnea, abdominal pain, n/v/d. Plan for CABG on Tuesday. 05/04/21: Increased blood clot from osorio and obstruction with pain. 05/05/21: Brief asystole o/n w turning. Stable after. Self extubated in AM. 05/06/21: NAEON. Maintained on CPAP and optiflow. 05/07/21: NAEON. Up in chair at time of exam. ?? HPI Ms. Elias is a 60-year-old gentleman with a history of coronary artery disease status post multiple PCIs with stent placement. ??He awoke yesterday morning unable to void and was found to have hematuria for which she underwent what sounds to be a cystoscopy and a Osorio catheter was placed. ??He was discharged home and developed chest pain and shortness of breath. ??He presented to an outside hospital and was found to have EKG findings concerning for myocardial infarction. ??He was subsequentlytransferred to the cardiac catheterization lab here at [facility] where he underwent coronary angiography via right common femoral artery which demonstrated an LAD multiple stenosesand underwent PTCA of the LAD and diagonal. ??Left ventriculogram demonstrated moderate anteroapical hypokinesis. ??The case was discussed with Dr. Granados.?An intra-aortic balloon pump was placedvia the right common femoral access in demonstrates good augmentation on bedside exam. ??He was started on Integrilin and heparin drips and transferred to the ICU for planned CABG on Tuesday. ?? Currently the patient states his chest pain is resolved and he denies shortness of breath. ??His only complaint is some back pain which she states is chronic for him when he lays down. ??He does not usually take anything for this at home. ??He denies any nausea, shortness of breath, or change in bowel habits. Scheduled Medications: albuterol, 2.5 mg, nebulization, Q4H LEAH (RT) aspirin, 324 mg, oral, Daily atorvastatin, 80 mg, oral, Nightly cefTRIAXone, 2,000 mg, intravenous, Q24H clopidogreL, 75 mg, oral, Daily docusate sodium, 100 mg, oral, BID enoxaparin, 40 mg, subcutaneous, Daily-2100 furosemide, 40 mg, intravenous, Q8H insulin glargine, 10 Units, subcutaneous, Nightly insulin lispro, 0-5 Units, subcutaneous, Q4H pantoprazole DR, 40 mg, oral, Daily polyethylene glycol, 17 g, oral, Daily potassium chloride ER, 40 mEq, oral, BID QUEtiapine, 25 mg, oral, Nightly sodium chloride 0.9%, 0.5-20 mL, intra-catheter, Q8H LEAH Continuous Medications: DOButamine, 1 mcg/kg/min, Last Rate: 1 mcg/kg/min (05/08/21 1011) PRN Medications: ??? acetaminophen ??? albumin ??? dextrose OR dextrose ??? glucagon ??? ondansetron ??? traMADoL Objective Vitals: Most Recent: Vitals: 05/08/21 1000 BP: 93/57 Pulse: 83 Resp: 18 Temp: SpO2: 95% 24hr Min/Max: Temp Min: 37.5 ??C (99.5 ??F) Max: 37.5 ??C (99.5 ??F) Pulse Min: 77 Max: 99 BP Min: 80/63 Max: 129/57 Resp Min: 15 Max: 39 SpO2 Min: 73 % Max: 99 % LDA: Arterial Sheath 8 Fr. Right Femoral (Active) Placement Date/Time: 05/01/21 1730 Catheter Time Out Checklist Completed: Yes Hand Hygiene Performed: Yes Site Prep: Alcohol;Chlorhexidine Site Prep Agent has Completely Dried Before Insertion: Yes All 5 Sterile Barriers or Appropriate Barriers ... Number of days: 2 IABP 8.0 Fr. 50 mL (Active) Placement Date/Time: 05/01/21 1834 Insertion Site: Right femoral Sutured: Yes Catheter/Balloon Size: 8.0 Fr. Balloon/ Catheter Volume: 50 mL Verification by X-ray: Yes Number of days: 2 Urethral Catheter Straight-tip (Active) Placement Date: 04/30/21 Inserted by: inserted by urologist at [facility] Placed by External Staff?: Other hospital Catheter Type: Straight-tip Catheter Balloon Size: 10 mL Urine Returned: (c) Yes Number of days: 4 I/O: Date 05/07/21 07 - 05/08/21 0659 05/08/21 0700 - 05/09/21 0659 Shift 1498-1974 8023-0427 24 Hour Total 1981-1745 9211-6543 24 Hour Total INTAKE P.O. 100 100 360 360 I.V.(mL/kg) 417(4.6) 45(0.5) 462(5.3) Blood 391.7 391.7 Shift Total(mL/kg) 808.7(8.8) 145(1.7) 953.7(10.9) 360(4.1) 360(4.1) OUTPUT Urine(mL/kg/hr) 2385(2.2) 3625(3.5) 6010(2.9) 200 200 Chest Tube 50 50 Shift Total(mL/kg) 2435(26.6) 3625(41.5) 6060(69.3) 200(2.3) 200(2.3) NET -1626.3 -3480 -5106.3 160 160 Weight (kg) 91.4 87.4 87.4 87.4 87.4 87.4 Physical Exam: Gen: NAD HEENT: NC/AT, PERRLA, EOMI Neck: Supple, Trachea Midline CV: paced, Distal pulses intact Pulm: NLR on NC Abd: Soft, nttp : Osorio with gross hematuria, no clots Ext: No edema noted Skin: Warm, Dry Neuro: follows, no focal deficits Lab/Radiology/Diagnostic Review: Laboratory review: Lab results in the last 24 hours: Recent Results (from the past 24 hour(s)) Type and screen Collection Time: 05/07/21 10:36 AM Result Value Ref Range ABO Rh A Positive Shelby, indirect Negative POCT glucose Collection Time: 05/07/21 12:18 PM Result Value Ref Range Glucose, POC 181 70 - 199 mg/dL POCT glucose Collection Time: 05/07/21 3:56 PM Result Value Ref Range Glucose, POC 204 (H) 70 - 199 mg/dL POCT glucose Collection Time: 05/07/21 7:51 PM Result Value Ref Range Glucose, POC 214 (H) 70 - 199 mg/dL POCT glucose Collection Time: 05/08/21 12:12 AM Result Value Ref Range Glucose, POC 158 70 - 199 mg/dL POCT glucose Collection Time: 05/08/21 4:08 AM Result Value Ref Range Glucose, POC 152 70 - 199 mg/dL Basic metabolic panel Collection Time: 05/08/21 5:55 AM Result Value Ref Range Sodium 131 (L) 135 - 145 mmol/L Potassium, pl 3.2 (L) 3.3 - 4.9 mmol/L Chloride 94 (L) 97 - 110 mmol/L CO2 25 22 - 32 mmol/L Anion gap 12 2 - 15 mmol/L BUN 13 8 - 25 mg/dL Creatinine 0.59 (L) 0.80 - 1.30 mg/dL Glucose 191 70 - 199 mg/dL Calcium 8.6 8.5 - 10.3 mg/dL CBC without differential Collection Time: 05/08/21 5:55 AM Result Value Ref Range WBC 16.2 (H) 3.8 - 9.9 K/cumm Hgb 10.5 (L) 13.0 - 17.5 g/dL Hct 31.0 (L) 38.9 - 50.3 % Plt 247 150 - 400 K/cumm MPV 11.3 9.1 - 12.3 fL RBC 3.46 (L) 4.30 - 5.80 M/cumm MCV 89.6 81.3 - 96.4 fL MCH 30.3 27.1 - 33.3 pg MCHC 33.9 32.3 - 35.7 g/dL RDW CV 14.0 11.1 - 14.9 % RDW SD 45.7 35.7 - 48.1 fL NRBC abs 0.00 0.00 - 0.01 K/cumm Phosphorus Collection Time: 05/08/21 5:55 AM Result Value Ref Range Phosphorus, pl 3.3 2.3 - 4.5 mg/dL Magnesium Collection Time: 05/08/21 5:55 AM Result Value Ref Range Magnesium 1.9 1.4 - 2.5 mg/dL eGFR Collection Time: 05/08/21 5:55 AM Result Value Ref Range eGFR 111 mL/min/1.73 m2 POCT glucose Collection Time: 05/08/21 7:41 AM Result Value Ref Range Glucose, POC 184 70 - 199 mg/dL Laboratory review: Lab results in the last 24 hours: Recent Results (from the past 24 hour(s)) Type and screen Collection Time: 05/07/21 10:36 AM Result Value Ref Range ABO Rh A Positive Shelby, indirect Negative POCT glucose Collection Time: 05/07/21 12:18 PM Result Value Ref Range Glucose, POC 181 70 - 199 mg/dL POCT glucose Collection Time: 05/07/21 3:56 PM Result Value Ref Range Glucose, POC 204 (H) 70 - 199 mg/dL POCT glucose Collection Time: 05/07/21 7:51 PM Result Value Ref Range Glucose, POC 214 (H) 70 - 199 mg/dL POCT glucose Collection Time: 05/08/21 12:12 AM Result Value Ref Range Glucose, POC 158 70 - 199 mg/dL POCT glucose Collection Time: 05/08/21 4:08 AM Result Value Ref Range Glucose, POC 152 70 - 199 mg/dL Basic metabolic panel Collection Time: 05/08/21 5:55 AM Result Value Ref Range Sodium 131 (L) 135 - 145 mmol/L Potassium, pl 3.2 (L) 3.3 - 4.9 mmol/L Chloride 94 (L) 97 - 110 mmol/L CO2 25 22 - 32 mmol/L Anion gap 12 2 - 15 mmol/L BUN 13 8 - 25 mg/dL Creatinine 0.59 (L) 0.80 - 1.30 mg/dL Glucose 191 70 - 199 mg/dL Calcium 8.6 8.5 - 10.3 mg/dL CBC without differential Collection Time: 05/08/21 5:55 AM Result Value Ref Range WBC 16.2 (H) 3.8 - 9.9 K/cumm Hgb 10.5 (L) 13.0 - 17.5 g/dL Hct 31.0 (L) 38.9 - 50.3 % Plt 247 150 - 400 K/cumm MPV 11.3 9.1 - 12.3 fL RBC 3.46 (L) 4.30 - 5.80 M/cumm MCV 89.6 81.3 - 96.4 fL MCH 30.3 27.1 - 33.3 pg MCHC 33.9 32.3 - 35.7 g/dL RDW CV 14.0 11.1 - 14.9 % RDW SD 45.7 35.7 - 48.1 fL NRBC abs 0.00 0.00 - 0.01 K/cumm Phosphorus Collection Time: 05/08/21 5:55 AM Result Value Ref Range Phosphorus, pl 3.3 2.3 - 4.5 mg/dL Magnesium Collection Time: 05/08/21 5:55 AM Result Value Ref Range Magnesium 1.9 1.4 - 2.5 mg/dL eGFR Collection Time: 05/08/21 5:55 AM Result Value Ref Range eGFR 111 mL/min/1.73 m2 POCT glucose Collection Time: 05/08/21 7:41 AM Result Value Ref Range Glucose, POC 184 70 - 199 mg/dL XR Chest 1 Vw Portable Result Date: 05/04/2021 Stable appearance. COPD cardiomegaly, with mild failure suspected. Electronically signed by: Todd Kuo Plan: Neuro: #Acute on chronic pain - PRN oxycodone 5mg q4h and tylenol - Lidoderm patches - delirium/fall precautions - continue to ensure adequate sleep hygiene #Agitation/delirium - improving - Seroquel BID ?? CV: #Anterior STEMI s/p PTCA to LAD - s/p 4V CABG 05/04 for rethrombosis of existing stents - IABP removed 05/06 #CAD - ASA 324, Statin, Plavix # V fib - resolved - brief code event 05/03 night - treated with Amio gtt - atrial paced - dobutamine per CTS, wean as able for CI 2.2 #Shock - Multifactorial: cardiogenic postop, hypovolemia now corrected - Noninvasive cardiac monitoring, maintain CI >2.2 - Echo 05/07: EF 40%, hypokinetic segments of LV - Echo done 05/02 EF 40% pre-op - Metoprolol held ?? Pulmonary: - Acute respiratory failure - weaned down to NC - maintain O2 sats greater than 92% - incentive spirometry ?? GI/Nutrition: Diet: heart healthy, low carb diet - added supplements, patient endorses poor apetite - Dietitian following PUD PPx: PPI Bowel regimen: pericolace, miralax ?? Endocrine: #Poorly controlled diabetes - Hemoglobin A1c 13.5 - Glargine at night, SSI ?? Renal: - Cr 0.6 - Diureses per CTS - Urology c/s for bladder bleeding: CBI ended but still with gross hematuria, flush PRN - keep Osorio catheter for strict, accurate I/Os, when applicable will discontinue Osorio catheter per the HOUDINI protocol - trend renal function, avoid nephrotoxins, renal dose medications - optimize electrolytes with caution to renal function ?-goal K ~4, Mg >??2.2, phos >??3, iCAL >??4.5 ?-provide supplement as needed ?-AM BMP and electrolytes check ?? Heme/Oncology: #Acute blood loss anemia - Hgb 10.5 - Transfuse for hgb < 8 - CBC in am ? DVT PPX: SCD's, lovenox ?? ID: #Community acquired PNA - Culture NGTD, stained only for yeast so far - Ceftriaxone, complete 7 days per CTS Musculoskeletal/Skin: High risk for skin breakdown given immobilization - skin care per unit protocol - PT/OT per post MT/CTS protocol ? ICU standards of care: Restraints: n/a Physical therapy/Activity: up to chair Access: PIV x3, dc PA Cath, dc Art line in L radial Family communication: Patient updated as per his current clinical status and ongoing plan of care. Goals of care: Full code SICU [place] Team, Dr. Nimesh Evans Assessment and plan has been reviewed with attending, DOMENICA Gatica. Cosigned by Domenica Rod MD at 05/08/2021 4:44 PM STAFF FORESTER F FORESTER F FORESTER * Lise Suggs NP - 05/08/2021 8:25 AM CST Urology Progress Note Subjective Deepak Alvarado is a 60 y.o. male that we are seeing for gross hematuria and clot formation. His CBI has been off for several days. Nurses voices no clot formation over the past 24 hours. Voices no concerns with his Osorio catheter. Lab Results Component Value Date CREATININE 0.59 (L) 05/08/2021 and CBC: Lab Results Component Value Date WBC 16.2 (H) 05/08/2021 HGB 10.5 (L) 05/08/2021 Lab/Radiology/Diagnostic Review: Most Recent: Vitals: 05/08/21 0645 BP: Pulse: 82 Resp: 19 Temp: SpO2: 90% Review of Systems: All other systems except the HPI are negative. Objective Physical exam: Constitutional: Appears well-developed and well-nourished. Head: Normocephalic and atraumatic. Eyes: Conjunctivae and EOM are normal. Pulmonary/Chest: Effort normal with no respiratory distress noted Musculoskeletal: Normal range of motion. Neurological: Alert and oriented to person, place, and time. Psychiatric: Normal mood and affect. Behavior is normal. Extremities: warm and well perfused : Indwelling Osorio catheter is patent with light pink tinged urine. Assessment /Plan Principal Problem: ST elevation myocardial infarction (STEMI) ([facility]) 60 y.o. male with gross hematuria with clot retention. Continue to monitor his urinary output. Maintain the Osorio catheter and provide catheter care. Continue to monitor his HGB. Thank you for allowing Urology to be a part of the care of your patient. Please call if you have any questions. Lise Suggs NP Urology Division [facility] Office [phone] 05/08/2021 8:26 AM Cosigned by Edward Trejo DO at 05/08/2021 12:20 PM STAFF FORESTER F FORESTER F FORESTER * Loco Elizabethcharito Louise, EFREN - 05/07/2021 1:09 PM CST General Medicine Daily Progress Reason for hospitalization: STEMI- status post coronary artery bypass graft x4 left internal mammary artery takedown, right saphenous vein and endo harvest cardiopulmonary bypass Interval Hx- 05/04/21 CABG x 4on 05/04 2021, 05/05 - self extubated ; on OptiFlow o2 ; Levophed off; on dobutamine, balloon pump in placed;hematuria resolving on continues bladder irrigation 05/06/21 - remains on optiflow O2; opens eyes intermittently; cont on dobutamine ; off balloon pump; hematuria resolved 05/07/21- remains in ICU, chest tube out, of balloon pump, off continues bladder irrigation, continues on dobutamine; paced rhythm, hemodynamically stable Subjective: Objective: Vitals: 05/07/21 0745 05/07/21 0800 05/07/21 0815 05/07/21 0830 BP: 96/57 103/56 Pulse: 74 70 82 82 Resp: 28 Temp: TempSrc: SpO2: 95% 93% 94% 94% Weight: Height: I/O last 2 completed shifts: In: 1554 [I.V.:1554] Out: 3220 [Urine:2700; Chest Tube:520] I/O this shift: In: - Out: 1275 [Urine:1225; Chest Tube:50] Medications: Scheduled Medications Medication Dose Route Frequency ??? albuterol 2.5 mg /3 mL (0.083 %) nebulizer solution 2.5 mg 2.5 mg nebulization Q4H LEAH (RT) ??? aspirin chewable tablet 324 mg 324 mg oral Daily ??? atorvastatin (LIPITOR) tablet 80 mg 80 mg oral Nightly ??? cefTRIAXone (ROCEPHIN) 2,000 mg/20 mL in sterile water (premix) 2,000 mg 2,000 mg intravenous Q24H ??? clopidogreL (PLAVIX) tablet 75 mg 75 mg oral Daily ??? docusate sodium (COLACE) capsule 100 mg 100 mg oral BID ??? enoxaparin (LOVENOX) syringe 40 mg 40 mg subcutaneous Daily-2100 ??? furosemide (LASIX) 10 mg/mL injection 40 mg 40 mg intravenous Q8H ??? insulin glargine (LANTUS, SEMGLEE) 100 unit/mL injection 10 Units 10 Units subcutaneous Nightly ??? insulin lispro (HumaLOG, ADMELOG) 100 unit/mL injection 0-5 Units 0-5 Units subcutaneous Q4H ??? lidocaine (LIDODERM) 5 % patch 2 patch 2 patch transdermal Daily ??? pantoprazole DR (PROTONIX) extended release tablet 40 mg 40 mg oral Daily ??? polyethylene glycol (MIRALAX) packet 17 g 17 g oral Daily ??? QUEtiapine (SEROquel) tablet 25 mg 25 mg oral Nightly ??? sodium chloride 0.9% flush 0.5-20 mL 0.5-20 mL intra-catheter Q8H LEAH Physical Exam: Gen: 60-year-old male not in acute respiratory distress Neuro: Awake/oriented x2 Pulmonary: Diminished to ausculation; Cardiovascular: Irregular; chest incision ; chest tube ; GI: abdomen soft, non-tender; positive BS Musculoskeletal: no edema Skin: No decubitus ulcers - osorio with clear urine Labs: Labs reviewed Recent Results (from the past 24 hour(s)) Basic metabolic panel Collection Time: 05/06/21 1:12 PM Result Value Ref Range Sodium 139 135 - 145 mmol/L Potassium, pl 3.4 3.3 - 4.9 mmol/L Chloride 107 97 - 110 mmol/L CO2 22 22 - 32 mmol/L Anion gap 10 2 - 15 mmol/L BUN 15 8 - 25 mg/dL Creatinine 0.69 (L) 0.80 - 1.30 mg/dL Glucose 163 70 - 199 mg/dL Calcium 8.2 (L) 8.5 - 10.3 mg/dL Magnesium Collection Time: 05/06/21 1:12 PM Result Value Ref Range Magnesium 1.8 1.4 - 2.5 mg/dL CBC without differential Collection Time: 05/06/21 1:12 PM Result Value Ref Range WBC 16.1 (H) 3.8 - 9.9 K/cumm Hgb 9.0 (L) 13.0 - 17.5 g/dL Hct 26.5 (L) 38.9 - 50.3 % Plt 202 150 - 400 K/cumm MPV 11.4 9.1 - 12.3 fL RBC 2.95 (L) 4.30 - 5.80 M/cumm MCV 89.8 81.3 - 96.4 fL MCH 30.5 27.1 - 33.3 pg MCHC 34.0 32.3 - 35.7 g/dL RDW CV 14.3 11.1 - 14.9 % RDW SD 46.1 35.7 - 48.1 fL NRBC abs 0.00 0.00 - 0.01 K/cumm eGFR Collection Time: 05/06/21 1:12 PM Result Value Ref Range eGFR 104 mL/min/1.73 m2 POCT glucose Collection Time: 05/06/21 3:46 PM Result Value Ref Range Glucose, POC 140 70 - 199 mg/dL POCT glucose Collection Time: 05/06/21 8:03 PM Result Value Ref Range Glucose, POC 176 70 - 199 mg/dL POCT glucose Collection Time: 05/06/21 11:13 PM Result Value Ref Range Glucose, POC 163 70 - 199 mg/dL Basic metabolic panel Collection Time: 05/06/21 11:14 PM Result Value Ref Range Sodium 138 135 - 145 mmol/L Potassium, pl 3.6 3.3 - 4.9 mmol/L Chloride 104 97 - 110 mmol/L CO2 19 (L) 22 - 32 mmol/L Anion gap 15 2 - 15 mmol/L BUN 17 8 - 25 mg/dL Creatinine 0.62 (L) 0.80 - 1.30 mg/dL Glucose 169 70 - 199 mg/dL Calcium 8.3 (L) 8.5 - 10.3 mg/dL Magnesium Collection Time: 05/06/21 11:14 PM Result Value Ref Range Magnesium 1.8 1.4 - 2.5 mg/dL eGFR Collection Time: 05/06/21 11:14 PM Result Value Ref Range eGFR 109 mL/min/1.73 m2 POCT glucose Collection Time: 05/07/21 4:19 AM Result Value Ref Range Glucose, POC 146 70 - 199 mg/dL Basic metabolic panel Collection Time: 05/07/21 4:21 AM Result Value Ref Range Sodium 137 135 - 145 mmol/L Potassium, pl 3.3 3.3 - 4.9 mmol/L Chloride 103 97 - 110 mmol/L CO2 18 (L) 22 - 32 mmol/L Anion gap 16 (H) 2 - 15 mmol/L BUN 16 8 - 25 mg/dL Creatinine 0.59 (L) 0.80 - 1.30 mg/dL Glucose 152 70 - 199 mg/dL Calcium 8.1 (L) 8.5 - 10.3 mg/dL CBC without differential Collection Time: 05/07/21 4:21 AM Result Value Ref Range WBC 16.6 (H) 3.8 - 9.9 K/cumm Hgb 8.6 (L) 13.0 - 17.5 g/dL Hct 25.5 (L) 38.9 - 50.3 % Plt 197 150 - 400 K/cumm MPV 11.3 9.1 - 12.3 fL RBC 2.76 (L) 4.30 - 5.80 M/cumm MCV 92.4 81.3 - 96.4 fL MCH 31.2 27.1 - 33.3 pg MCHC 33.7 32.3 - 35.7 g/dL RDW CV 14.3 11.1 - 14.9 % RDW SD 47.6 35.7 - 48.1 fL NRBC abs 0.00 0.00 - 0.01 K/cumm Phosphorus Collection Time: 05/07/21 4:21 AM Result Value Ref Range Phosphorus, pl 2.7 2.3 - 4.5 mg/dL Magnesium Collection Time: 05/07/21 4:21 AM Result Value Ref Range Magnesium 1.7 1.4 - 2.5 mg/dL eGFR Collection Time: 05/07/21 4:21 AM Result Value Ref Range eGFR 111 mL/min/1.73 m2 Oxyhemoglobin, central venous Collection Time: 05/07/21 6:15 AM Result Value Ref Range Oxyhemoglobin, CV 78.5 % Prepare RBC: 1 Units Collection Time: 05/07/21 8:32 AM Result Value Ref Range Product code [id number] Unit Number [id number] Product Blood Type APOS Dispense Status CROSSMATCHED POCT glucose Collection Time: 05/07/21 8:55 AM Result Value Ref Range Glucose, POC 153 70 - 199 mg/dL Type and screen Collection Time: 05/07/21 10:36 AM Result Value Ref Range ABO Rh A Positive [place], indirect Negative POCT glucose Collection Time: 05/07/21 12:18 PM Result Value Ref Range Glucose, POC 181 70 - 199 mg/dL Cardiac cath cardiac catheterization on 05/01/2021 with PTCA of LAD done using 3.0, 3.5 balloon and of diagnol using 1.5, 2.0, 2.5 balloons and flow restored. IABP on 05/01/2021. Assessment & Plan: Acute MT with CAD s/p CABG x4; - cardio/ CTS consults reviewed ; on IABP 1:1 ; cont on dobutamine; cont asa and statin Shock - cardiogenic ; post op Cabg - s/p fluid resuscitation ; levophed weaned off; cont on dobutamine - court monitor V fib - briefly on 05/03 - s/p amiodarone ; now on dobutamine ; BB restarted 05/06 Gross Hematuria - in a pt with hx of cystoscopy, clot evacuation and transurethral resection of bladder tumor at [facility] ; urology consult ; s/p [address]; continuousirrigation -resolved Acute resp failure - self ext 05/05/21 ; now on optiflow O2; wean O2 ; keep sats>90% ; IS when awake Lung infiltrates - pulm vascular congestion versus pneumonia; currently on Lasix IV and broad-spectrum antibiotics cefepime Hyperlipidemia. On statin. Type 2 diabetes. - on insulin IV for now ; accuchecks Acute blood loss anemia ; s/p PRBC transfusions in ICU and OR, transfuse for hemoglobin less than 8, CBC Tobacco use. Vitamin-D deficiency.- stable Prophylaxis. ProtonixElizabeth, ANP Team [facility] [phone] 05/07/2021 1:09 PM F FORESTER * Sandee Paez, PT - 05/07/2021 10:48 AM CST Physical Therapy INITIAL EVALUATION PATIENT'S NAME:Deepak Alvarado :1960 AGE:60 y.o. TIME IN:907 TIME OUT:921 Primary Diagnosis: ST elevation myocardial infarction (STEMI) (HCC) ?? HPI: Deepak Alvarado is a 60 y.o. male who presents with retrosternal chest pain accompanied by sweating and shortness of breath. Patient underwent bladder surgery (cystoscopy, clot evacuation, and transurethral resection of bladder tumor) at [facility] 04/30/2021 and was discharged 05/01/2021. Patient transferred to for emergent cardiac catheterization. Patient admitted with acute anterior wall MT, s/p cardiac cath with PTCA of the LAD and diagonal, intra-aortic balloon pump placement 05/01, CAD, s/p CABG x4 on 05/04/2021 - Dr. Granados. Patient self-extubated on 05/05/2021, post-op tachypnea, acute respiratory failure, cardiogenic shock, cardiomyopathy, EF 40%, s/p IABP removal 05/06/2021 ?? Notable History: CAD, s/p multiple stents, HTN, hyperlipidemia, DM, PVD, obesity, tobacco use ?? Patient Active Problem List Diagnosis ??? ST elevation myocardial infarction (STEMI) (HCC) Past Medical History: Diagnosis Date ??? Chronic obstructive pulmonary disease (CMS/HCC) (HCC) COPD ??? Coronary artery disease ??? Diabetes mellitus (HCC) ??? H/O heart artery stent 2006 ??? Hypertension Hypertension ??? ST elevation (STEMI) myocardial infarction (HCC) 05/01/2021 No past surgical history on file. SUBJECTIVE Per OT interview Lives with: and two children (ages 15 and 16) ?? Receives assistance from / other social supports available: supportive family who is able to provide 24 hour assistance upon discharge as needed ?? Living environment (Type of residence / Entrance accessibility): 1-story house/ trailer, number of outside stairs: ramped entrance without handrails, number of inside stairs: 0 steps - no basement ?? Bathroom location and setup: Main floor and Tub/shower combination ?? Prior level of function: ?? Prior to admission patient independent with: Bathing, Dressing - Upper Body, Dressing - Lower Body,Eating / Feeding, Gait, Grooming, Medication Management, Toileting and Transfers ?? Patient total assistance with: House Cleaning - Light, House Cleaning - Heavy, Laundry, Meal Preparation - Simple, Meal Preparation - Complex, Paying Bills and Shopping ?? Mobility device used prior to admission: No device ?? Equipment available: Bedside commode, Straight cane and Wheeled walker ?? Community access / Driving: Driven by others ?? Vocational / Occupation: unemployed ?? Social roles / Hobbies: enjoys sitting on my butt . Therapist provided increased encouragement forpatient to identify how he spends his time and patient reports watching television ?? Patient / Family goal(s): Just to recover ?? Fall(s) within the last 6 months: NO MENTAL STATUS/ORIENTATION: Alert and oriented x not time or full situation OBJECTIVE PRECAUTIONS: fall, sternal , cardiac APPEARANCE/POSTURE: patient sitting in b/s chair with multiple lines including external PPM and chest tube VITAL SIGNS: Resting BP: 107/45 Post-activity BP: 131/52 Resting heart rate: 72 Post-activity heart rate: 74 Resting O2 sat: 92% Post-activity O2 sat: 90% RA PAIN: Pre-therapy pain level: 8/10 Pain location: back Pain intervention: repositioned in bed and lidocaine patches applied during session Post-therapy pain level/response to intervention: none LE ASSESSMENTS: Right LE ROM: AROM WFL Left LE ROM: AROM WFL Right LE strength: generally 4/5 Left LE strength: generally 4/5 Tone: normal MOBILITY: (cotx with OT for mobility portion of eval for acuity and tolerance - RN Karlee in room throughout mobility for line management) Bed mobility: mod assist of 2 for sit to supine Transfers: sit to/from stand and beed to chair with min of 1 and mod assist of 1 Ambulation: Distance: 3 steps chair to bed Assistive device: two hand hold Level of assist: Deviations: fair balance Stairs: Number of steps: not yet appropriate Assistive device: Level of assist: Balance/Special Tests: Static sitting balance: fair+ Dynamic sitting balance: Static standing balance: fair Dynamic standing balance: Basic Mobility - 6 Click How much difficulty does the patient have: Turning over in bed: A lot How much difficulty does the patient currently have: Sitting down and standing up from a chair witharms?: A lot How much difficulty does the patient have: Moving from lying on back to sitting on the side of the bed?: A lot How much difficulty does the patient have: Moving to and from a bed to a chair including wheelchair?: A lot How much help does the patient currently need: Walk in hospital room?: Total How much help from another person does the patient currently need: Climbing 3-5 steps with a railing?: Total Total 6 Click Score (range 6-24): 10 APPEARANCE/POSTURE (end of session): patient positioned in bed with call light. RN Karlee in room throughout mobility assessment. EDUCATION: issued post-CT surgery packet and began review. RESPONSE TO EDUCATION: needs reinforcement and no evidence of learning ASSESSMENT PROBLEM LIST: impaired endurance, strength, balance, mobility/indep, ADLs, medical condition, pain,cognition. BARRIERS TO LEARNING: Physical and Cognitive BARRIERS TO DISCHARGE: Pain, Cognitive deficit and Decreased endurance REHAB POTENTIAL/PROGNOSIS: good PLAN DISCHARGE LOCATION RECOMMENDATIONS: INPATIENT REHABILITATION PENDING QUALIFYING CRITERIA TREATMENT PLAN/INTERVENTIONS: acute PT To address above problem list FREQUENCY: daily 3-5x/wk EQUIPMENT RECOMMENDATIONS: has WW Multi-Disciplinary Problems (from Physical Therapy) Active Problems Problem: PT Misc Start Date: 05/07/21 Goal Start Date Expected End Date End Date [place] [facility] [place] 05/18/21 -- Goal Details: Perform bed mobility with CG Assist. Goal Start Date Expected End Date End Date PT [facility] [place] [facility] [place]07/21 05/18/21 -- Goal Details: Perform functional transfers with CG Assist. Goal Start Date Expected End Date End Date PT [facility] [place] [facility] [place] 05/07/21 05/18/21 -- Goal Details: Gait 150' with WW with CG Assist. Goal Start Date Expected End Date End Date PT [facility] [place] [facility] [place] 05/07/21 05/18/21 -- Goal Details: Perform LE HEP, incentive spirometry and incentive spirometry with SBA Goal Start Date Expected End Date End Date PT [facility] [place] [facility] [place] 05/07/21 05/18/21 -- Goal Details: Perform 1 step with CG Assist. Refer to multi-disciplinary care plan section for PT specific goals. If this is the last note, please consider this the discharge summary. F FORESTER * Nasima Watson MD - 05/07/2021 10:12 AM CST Cardiology Daily Progress SUBJECTIVE: S/P CABG On dobutamine infusion Hemodynamically stable Paced rhythm Negative balance of 1.1 L OBJECTIVE: Vitals: 05/07/21 0745 05/07/21 0800 05/07/21 0815 05/07/21 0830 BP: 96/57 103/56 Pulse: 74 70 82 82 Resp: Temp: TempSrc: SpO2: 95% 93% 94% 94% Weight: Height: Intake/Output Summary (Last 24 hours) at 05/07/2021 1012 Last data filed at 05/07/2021 0900 Gross per 24 hour Intake 1554 ml Output 2745 ml Net -1191 ml Scheduled Medications Medication Dose Route Frequency ??? albuterol 2.5 mg /3 mL (0.083 %) nebulizer solution 2.5 mg 2.5 mg nebulization Q4H LEAH (RT) ??? aspirin chewable tablet 324 mg 324 mg oral Daily ??? atorvastatin (LIPITOR) tablet 80 mg 80 mg oral Nightly ??? cefTRIAXone (ROCEPHIN) 2,000 mg/20 mL in sterile water (premix) 2,000 mg 2,000 mg intravenous Q24H ??? clopidogreL (PLAVIX) tablet 75 mg 75 mg oral Daily ??? docusate sodium (COLACE) capsule 100 mg 100 mg oral BID ??? enoxaparin (LOVENOX) syringe 40 mg 40 mg subcutaneous Daily-2100 ??? furosemide (LASIX) 10 mg/mL injection 40 mg 40 mg intravenous Q8H ??? insulin glargine (LANTUS, SEMGLEE) 100 unit/mL injection 10 Units 10 Units subcutaneous Nightly ??? insulin lispro (HumaLOG, ADMELOG) 100 unit/mL injection 0-5 Units 0-5 Units subcutaneous Q4H ??? lidocaine (LIDODERM) 5 % patch 2 patch 2 patch transdermal Daily ??? magnesium sulfate 2 g/50 mL in water (premix) 2 g 2 g intravenous Once ??? pantoprazole DR (PROTONIX) extended release tablet 40 mg 40 mg oral Daily ??? polyethylene glycol (MIRALAX) packet 17 g 17 g oral Daily ??? QUEtiapine (SEROquel) tablet 25 mg 25 mg oral Nightly ??? sodium chloride 0.9% flush 0.5-20 mL 0.5-20 mL intra-catheter Q8H LEAH LABS: Recent Labs Lab Units 05/07/21 0421 WBC K/cumm 16.6* HEMOGLOBIN g/dL 8.6* HEMATOCRIT % 25.5* PLATELETS K/cumm 197 Recent Labs Lab Units 05/07/21 0855 05/07/21 0421 05/07/21 0419 05/04/21 0803 05/04/21 0247 SODIUM mmol/L -- 137 -- < > 131* POTASSIUM PLASMA mmol/L -- 3.3 -- < > 4.0 CHLORIDE mmol/L -- 103 -- < > 100 CO2 mmol/L -- 18* -- < > 20* ANIONGAP mmol/L -- 16* -- < > 11 GLUCOSE mg/dL -- 152 -- < > 231* POC GLUCOSE MONITOR mg/dL 153 -- < > < > -- BUN SERUM mg/dL -- 16 -- < > 7* CREATININE mg/dL -- 0.59* -- < > 0.58* CALCIUM mg/dL -- 8.1* -- < > 8.5 ALBUMIN g/dL -- -- -- -- 3.1* ALK PHOS Units/L -- -- -- -- 69 ALT Units/L -- -- -- -- 18 AST Units/L -- -- -- -- 50 BILIRUBIN TOTAL mg/dL -- -- -- -- 0.4 < > = values in this interval not displayed. Recent Labs Lab Units 05/02/21 0032 CHOLESTEROL mg/dL 139 TRIGLYCERIDES mg/dL 105 HDL mg/dL 33* No results found for: BNP No results found for: TROPONINI No results found for: TSH Exam General:Awake , in no distressNeuro: Alert and oriented x 3, moves all extremities well HEENT: normocephalic, atraumatic, thyroid not enlarged. I do not appreciate JVD. Neck: There are nocarotid bruits. Lungs: symmetric, unlabored, clear to auscultation bilaterally Heart: S1,S2, regular rate & rhythm, 1-2/6SM Abdomen: soft, non-tender, non-distended, bowel sounds present Extremities: no LE edema, palpable peripheral pulses BL Neurologic: No focal deficits ASSESSMENT/PLAN: Coronary artery disease -s/p CABG post STEMI - underwent four-vessel bypass MAE to the LAD, sequential saphenous vein graft to diagonal and obtuse marginal and a vein graft to the PDA. -on low dose dobutamine -paced rhythm -on diuretics ??Moderate LV dysfunction - On lasix, dobutamine -.Betablockers, POLINA once ff dobutamine. ?? Nonsustained ventricular tachycardia -no recurrence of VT: ?? Diabetes mellitus - ??on lantus and SSI COPD: ?? -on O2 NC 2 L ?? Dyslipidemia - ??Continue atorvastatin. ?PAD - ??Stable ? Recent bladder tumor removal: ?? -??Urology is following.H/H stable Anemia -Hb 8.16 ? Nasima Watson MD,[facility] 05/07/2021 10:12 AM F FORESTER * Nimesh Evans MD - 05/07/2021 9:48 AM CST Images from the original note were not included. Critical Care Medicine Daily Progress Team: SICU [place] Team Subjective Interval events: No issues overnight, chronic back pain better controlled on current pain regimen. Persisting hematuria but urine appears news reporter in color. Hemoglobin stable post transfusion. O2 sats98% on 2 L nasal cannula with normal work of breathing. Hemodynamically stable, IABP remains in place, right groin areas soft and dressing intact. Distal lower extremities pulses palpable ?? 05/02/2021: NAJMA. Only complaints are of back pain from lying in bed. No chest pain shortness of breath, orthopnea, abdominal pain, n/v/d. Plan for CABG on Tuesday. 05/04/21: Increased blood clot from osorio and obstruction with pain. 05/05/21: Brief asystole o/n w turning. Stable after. Self extubated in AM. 05/06/21: NAEON. Maintained on CPAP and optiflow. 05/06/21: NAEON. Up in chair at time of exam. ?? HPI Ms. Elias is a 60-year-old gentleman with a history of coronary artery disease status post multiple PCIs with stent placement. ??He awoke yesterday morning unable to void and was found to have hematuria for which she underwent what sounds to be a cystoscopy and a Osorio catheter was placed. ??He was discharged home and developed chest pain and shortness of breath. ??He presented to an outside hospital and was found to have EKG findings concerning for myocardial infarction. ??He was subsequentlytransferred to the cardiac catheterization lab here at [facility] where he underwent coronary angiography via right common femoral artery which demonstrated an LAD multiple stenosesand underwent PTCA of the LAD and diagonal. ??Left ventriculogram demonstrated moderate anteroapical hypokinesis. ??The case was discussed with Dr. Granados.?An intra-aortic balloon pump was placedvia the right common femoral access in demonstrates good augmentation on bedside exam. ??He was started on Integrilin and heparin drips and transferred to the ICU for planned CABG on Tuesday. ?? Currently the patient states his chest pain is resolved and he denies shortness of breath. ??His only complaint is some back pain which she states is chronic for him when he lays down. ??He does not usually take anything for this at home. ??He denies any nausea, shortness of breath, or change in bowel habits. Scheduled Medications: albuterol, 2.5 mg, nebulization, Q4H LEAH (RT) aspirin, 324 mg, oral, Daily atorvastatin, 80 mg, oral, Daily cefTRIAXone, 2,000 mg, intravenous, Q24H clopidogreL, 75 mg, oral, Daily docusate sodium, 100 mg, oral, BID enoxaparin, 40 mg, subcutaneous, Daily-2100 furosemide, 40 mg, intravenous, Q8H insulin glargine, 10 Units, subcutaneous, Nightly insulin lispro, 0-5 Units, subcutaneous, Q4H lidocaine, 2 patch, transdermal, Daily magnesium sulfate, 2 g, intravenous, Once metOLazone, 10 mg, oral, Once pantoprazole DR, 40 mg, oral, Daily polyethylene glycol, 17 g, oral, Daily potassium chloride ER, 30 mEq, oral, Q4H QUEtiapine, 25 mg, oral, Nightly sodium chloride 0.9%, 0.5-20 mL, intra-catheter, Q8H LEAH Continuous Medications: dexmedeTOMIDine, 0-1.5 mcg/kg/hr, Last Rate: Stopped (05/06/21 1600) DOButamine, 5 mcg/kg/min, Last Rate: 5 mcg/kg/min (05/07/21 0758) norepinephrine, 0-2 mcg/kg/min, Last Rate: Stopped (05/06/21 0135) sodium chloride 0.9 %, 3,000 mL sodium chloride 0.9%, 20 mL/hr, Last Rate: 20 mL/hr (05/04/21 2309) sodium chloride 0.9%, 3-12 mL/hr PRN Medications: ??? acetaminophen ??? albumin ??? dextrose OR dextrose ??? glucagon ??? hydrALAZINE ??? ondansetron ??? oxyCODONE ??? potassium chloride ??? prochlorperazine ??? traZODone Objective Vitals: Most Recent: Vitals: 05/07/21 0830 BP: 103/56 Pulse: 82 Resp: 28 Temp: SpO2: 94% 24hr Min/Max: Pulse Min: 65 Max: 88 BP Min: 86/51 Max: 140/61 Resp Min: 0 Max: 37 SpO2 Min: 86 % Max: 100 % LDA: Arterial Sheath 8 Fr. Right Femoral (Active) Placement Date/Time: 05/01/21 1730 Catheter Time Out Checklist Completed: Yes Hand Hygiene Performed: Yes Site Prep: Alcohol;Chlorhexidine Site Prep Agent has Completely Dried Before Insertion: Yes All 5 Sterile Barriers or Appropriate Barriers ... Number of days: 2 IABP 8.0 Fr. 50 mL (Active) Placement Date/Time: 05/01/21 1834 Insertion Site: Right femoral Sutured: Yes Catheter/Balloon Size: 8.0 Fr. Balloon/ Catheter Volume: 50 mL Verification by X-ray: Yes Number of days: 2 Urethral Catheter Straight-tip (Active) Placement Date: 04/30/21 Inserted by: inserted by urologist at [facility] Placed by External Staff?: Other hospital Catheter Type: Straight-tip Catheter Balloon Size: 10 mL Urine Returned: (c) Yes Number of days: 4 I/O: Date 05/06/21 07 - 05/07/21 0659 05/07/21 07 - 05/08/21 0659 Shift 5233-9778 3229-9834 24 Hour Total 9972-0549 6845-2352 24 Hour Total INTAKE I.V.(mL/kg) 1449(15.9) 105(1.1) 1554(17) Shift Total(mL/kg) 1449(15.9) 105(1.1) 1554(17) OUTPUT Urine(mL/kg/hr) 1800(1.6) 900(0.8) 2700(1.2) 75 75 Chest Tube 230 290 520 50 50 Shift Total(mL/kg) 2030(22.2) 1190(13) 3220(35.2) 125(1.4) 125(1.4) [facility] -581 -1085 -1666 -125 -125 Weight (kg) 91.4 91.4 91.4 91.4 91.4 91.4 Physical Exam: Gen: NAD HEENT: NC/AT, PERRLA, EOMI Neck: Supple, Trachea Midline CV: paced, Distal pulses intact Pulm: NLR on optiflow, drain tubes w ss o/p Abd: Soft, nttp : Osorio with gross hematuria, no clots Ext: No edema noted Skin: Warm, Dry Neuro: follows, no focal deficits Lab/Radiology/Diagnostic Review: Laboratory review: Lab results in the last 24 hours: Recent Results (from the past 24 hour(s)) POCT glucose Collection Time: 05/06/21 11:47 AM Result Value Ref Range Glucose, POC 169 70 - 199 mg/dL Basic metabolic panel Collection Time: 05/06/21 1:12 PM Result Value Ref Range Sodium 139 135 - 145 mmol/L Potassium, pl 3.4 3.3 - 4.9 mmol/L Chloride 107 97 - 110 mmol/L CO2 22 22 - 32 mmol/L Anion gap 10 2 - 15 mmol/L BUN 15 8 - 25 mg/dL Creatinine 0.69 (L) 0.80 - 1.30 mg/dL Glucose 163 70 - 199 mg/dL Calcium 8.2 (L) 8.5 - 10.3 mg/dL Magnesium Collection Time: 05/06/21 1:12 PM Result Value Ref Range Magnesium 1.8 1.4 - 2.5 mg/dL CBC without differential Collection Time: 05/06/21 1:12 PM Result Value Ref Range WBC 16.1 (H) 3.8 - 9.9 K/cumm Hgb 9.0 (L) 13.0 - 17.5 g/dL Hct 26.5 (L) 38.9 - 50.3 % Plt 202 150 - 400 K/cumm MPV 11.4 9.1 - 12.3 fL RBC 2.95 (L) 4.30 - 5.80 M/cumm MCV 89.8 81.3 - 96.4 fL MCH 30.5 27.1 - 33.3 pg MCHC 34.0 32.3 - 35.7 g/dL RDW CV 14.3 11.1 - 14.9 % RDW SD 46.1 35.7 - 48.1 fL NRBC abs 0.00 0.00 - 0.01 K/cumm eGFR Collection Time: 05/06/21 1:12 PM Result Value Ref Range eGFR 104 mL/min/1.73 m2 POCT glucose Collection Time: 05/06/21 3:46 PM Result Value Ref Range Glucose, POC 140 70 - 199 mg/dL POCT glucose Collection Time: 05/06/21 8:03 PM Result Value Ref Range Glucose, POC 176 70 - 199 mg/dL POCT glucose Collection Time: 05/06/21 11:13 PM Result Value Ref Range Glucose, POC 163 70 - 199 mg/dL Basic metabolic panel Collection Time: 05/06/21 11:14 PM Result Value Ref Range Sodium 138 135 - 145 mmol/L Potassium, pl 3.6 3.3 - 4.9 mmol/L Chloride 104 97 - 110 mmol/L CO2 19 (L) 22 - 32 mmol/L Anion gap 15 2 - 15 mmol/L BUN 17 8 - 25 mg/dL Creatinine 0.62 (L) 0.80 - 1.30 mg/dL Glucose 169 70 - 199 mg/dL Calcium 8.3 (L) 8.5 - 10.3 mg/dL Magnesium Collection Time: 05/06/21 11:14 PM Result Value Ref Range Magnesium 1.8 1.4 - 2.5 mg/dL eGFR Collection Time: 05/06/21 11:14 PM Result Value Ref Range eGFR 109 mL/min/1.73 m2 POCT glucose Collection Time: 05/07/21 4:19 AM Result Value Ref Range Glucose, POC 146 70 - 199 mg/dL Basic metabolic panel Collection Time: 05/07/21 4:21 AM Result Value Ref Range Sodium 137 135 - 145 mmol/L Potassium, pl 3.3 3.3 - 4.9 mmol/L Chloride 103 97 - 110 mmol/L CO2 18 (L) 22 - 32 mmol/L Anion gap 16 (H) 2 - 15 mmol/L BUN 16 8 - 25 mg/dL Creatinine 0.59 (L) 0.80 - 1.30 mg/dL Glucose 152 70 - 199 mg/dL Calcium 8.1 (L) 8.5 - 10.3 mg/dL CBC without differential Collection Time: 05/07/21 4:21 AM Result Value Ref Range WBC 16.6 (H) 3.8 - 9.9 K/cumm Hgb 8.6 (L) 13.0 - 17.5 g/dL Hct 25.5 (L) 38.9 - 50.3 % Plt 197 150 - 400 K/cumm MPV 11.3 9.1 - 12.3 fL RBC 2.76 (L) 4.30 - 5.80 M/cumm MCV 92.4 81.3 - 96.4 fL MCH 31.2 27.1 - 33.3 pg MCHC 33.7 32.3 - 35.7 g/dL RDW CV 14.3 11.1 - 14.9 % RDW SD 47.6 35.7 - 48.1 fL NRBC abs 0.00 0.00 - 0.01 K/cumm Phosphorus Collection Time: 05/07/21 4:21 AM Result Value Ref Range Phosphorus, pl 2.7 2.3 - 4.5 mg/dL Magnesium Collection Time: 05/07/21 4:21 AM Result Value Ref Range Magnesium 1.7 1.4 - 2.5 mg/dL eGFR Collection Time: 05/07/21 4:21 AM Result Value Ref Range eGFR 111 mL/min/1.73 m2 Oxyhemoglobin, central venous Collection Time: 05/07/21 6:15 AM Result Value Ref Range Oxyhemoglobin, CV 78.5 % POCT glucose Collection Time: 05/07/21 8:55 AM Result Value Ref Range Glucose, POC 153 70 - 199 mg/dL Laboratory review: Lab results in the last 24 hours: Recent Results (from the past 24 hour(s)) POCT glucose Collection Time: 05/06/21 11:47 AM Result Value Ref Range Glucose, POC 169 70 - 199 mg/dL Basic metabolic panel Collection Time: 05/06/21 1:12 PM Result Value Ref Range Sodium 139 135 - 145 mmol/L Potassium, pl 3.4 3.3 - 4.9 mmol/L Chloride 107 97 - 110 mmol/L CO2 22 22 - 32 mmol/L Anion gap 10 2 - 15 mmol/L BUN 15 8 - 25 mg/dL Creatinine 0.69 (L) 0.80 - 1.30 mg/dL Glucose 163 70 - 199 mg/dL Calcium 8.2 (L) 8.5 - 10.3 mg/dL Magnesium Collection Time: 05/06/21 1:12 PM Result Value Ref Range Magnesium 1.8 1.4 - 2.5 mg/dL CBC without differential Collection Time: 05/06/21 1:12 PM Result Value Ref Range WBC 16.1 (H) 3.8 - 9.9 K/cumm Hgb 9.0 (L) 13.0 - 17.5 g/dL Hct 26.5 (L) 38.9 - 50.3 % Plt 202 150 - 400 K/cumm MPV 11.4 9.1 - 12.3 fL RBC 2.95 (L) 4.30 - 5.80 M/cumm MCV 89.8 81.3 - 96.4 fL MCH 30.5 27.1 - 33.3 pg MCHC 34.0 32.3 - 35.7 g/dL RDW CV 14.3 11.1 - 14.9 % RDW SD 46.1 35.7 - 48.1 fL NRBC abs 0.00 0.00 - 0.01 K/cumm eGFR Collection Time: 05/06/21 1:12 PM Result Value Ref Range eGFR 104 mL/min/1.73 m2 POCT glucose Collection Time: 05/06/21 3:46 PM Result Value Ref Range Glucose, POC 140 70 - 199 mg/dL POCT glucose Collection Time: 05/06/21 8:03 PM Result Value Ref Range Glucose, POC 176 70 - 199 mg/dL POCT glucose Collection Time: 05/06/21 11:13 PM Result Value Ref Range Glucose, POC 163 70 - 199 mg/dL Basic metabolic panel Collection Time: 05/06/21 11:14 PM Result Value Ref Range Sodium 138 135 - 145 mmol/L Potassium, pl 3.6 3.3 - 4.9 mmol/L Chloride 104 97 - 110 mmol/L CO2 19 (L) 22 - 32 mmol/L Anion gap 15 2 - 15 mmol/L BUN 17 8 - 25 mg/dL Creatinine 0.62 (L) 0.80 - 1.30 mg/dL Glucose 169 70 - 199 mg/dL Calcium 8.3 (L) 8.5 - 10.3 mg/dL Magnesium Collection Time: 05/06/21 11:14 PM Result Value Ref Range Magnesium 1.8 1.4 - 2.5 mg/dL eGFR Collection Time: 05/06/21 11:14 PM Result Value Ref Range eGFR 109 mL/min/1.73 m2 POCT glucose Collection Time: 05/07/21 4:19 AM Result Value Ref Range Glucose, POC 146 70 - 199 mg/dL Basic metabolic panel Collection Time: 05/07/21 4:21 AM Result Value Ref Range Sodium 137 135 - 145 mmol/L Potassium, pl 3.3 3.3 - 4.9 mmol/L Chloride 103 97 - 110 mmol/L CO2 18 (L) 22 - 32 mmol/L Anion gap 16 (H) 2 - 15 mmol/L BUN 16 8 - 25 mg/dL Creatinine 0.59 (L) 0.80 - 1.30 mg/dL Glucose 152 70 - 199 mg/dL Calcium 8.1 (L) 8.5 - 10.3 mg/dL CBC without differential Collection Time: 05/07/21 4:21 AM Result Value Ref Range WBC 16.6 (H) 3.8 - 9.9 K/cumm Hgb 8.6 (L) 13.0 - 17.5 g/dL Hct 25.5 (L) 38.9 - 50.3 % Plt 197 150 - 400 K/cumm MPV 11.3 9.1 - 12.3 fL RBC 2.76 (L) 4.30 - 5.80 M/cumm MCV 92.4 81.3 - 96.4 fL MCH 31.2 27.1 - 33.3 pg MCHC 33.7 32.3 - 35.7 g/dL RDW CV 14.3 11.1 - 14.9 % RDW SD 47.6 35.7 - 48.1 fL NRBC abs 0.00 0.00 - 0.01 K/cumm Phosphorus Collection Time: 05/07/21 4:21 AM Result Value Ref Range Phosphorus, pl 2.7 2.3 - 4.5 mg/dL Magnesium Collection Time: 05/07/21 4:21 AM Result Value Ref Range Magnesium 1.7 1.4 - 2.5 mg/dL eGFR Collection Time: 05/07/21 4:21 AM Result Value Ref Range eGFR 111 mL/min/1.73 m2 Oxyhemoglobin, central venous Collection Time: 05/07/21 6:15 AM Result Value Ref Range Oxyhemoglobin, CV 78.5 % POCT glucose Collection Time: 05/07/21 8:55 AM Result Value Ref Range Glucose, POC 153 70 - 199 mg/dL XR Chest 1 Vw Portable Result Date: 05/04/2021 Stable appearance. COPD cardiomegaly, with mild failure suspected. Electronically signed by: Todd Kuo Plan: Neuro: #Acute on chronic pain - PRN oxycodone 5mg q4h and tylenol - Lidoderm patches - delirium/fall precautions - continue to ensure adequate sleep hygiene #Agitation/delirium - improving - Seroquel ?? CV: #Anterior STEMI s/p PTCA to LAD - s/p 4V CABG 05/04 for rethrombosis of existing stents - IABP removed 05/06 #CAD - ASA 324, Statin, Plavix # V fib - resolved - brief code event 05/03 night - treated with Amio gtt - atrial paced - dobutamine per CTS, wean as able for CI 2.2 #Shock - Multifactorial: cardiogenic postop, hypovolemia now corrected - Noninvasive cardiac monitoring, maintain CI >2.2 - Echo ordered by CTS - Echo done 05/02 EF 40% pre-op - Metoprolol held while requiring inotropes ?? Pulmonary: - Acute respiratory failure - optiflow, wean as able - maintain O2 sats greater than 92% - incentive spirometry ?? GI/Nutrition: Diet: heart healthy, low carb diet - add supplements, patient endorses poor apetite - Dietitian following PUD PPx: PPI Bowel regimen: pericolace, miralax ?? Endocrine: #Poorly controlled diabetes - Hemoglobin A1c 13.5 - Glargine at night, SSI ?? Renal: - Cr 0.6 - UOP adequate - Urology c/s for bladder bleeding: CBI ended yesterday but still with gross hematuria - keep Osorio catheter for strict, accurate I/Os, when applicable will discontinue Osorio catheter per the HOUDINI protocol - trend renal function, avoid nephrotoxins, renal dose medications - optimize electrolytes with caution to renal function ?-goal K ~4, Mg >??2.2, phos >??3, iCAL >??4.5 ?-provide supplement as needed ?-AM BMP and electrolytes check ?? Heme/Oncology: #Acute blood loss anemia - Hgb 8.6, 1u PRBC ordered by CTS - transfused 3u PRBC o/n in ICU Total with OR transfusion = 5u PRBC, 2 Plt, 2 FFP, 1 Cryo - Transfuse for hgb < 8 - CBC in am ? DVT PPX: SCD's, lovenox ?? ID: #Community acquired PNA - Culture pending, stained only for yeast so far - Ceftriaxone Musculoskeletal/Skin: High risk for skin breakdown given immobilization - skin care per unit protocol - PT/OT per post MT/CTS protocol ? ICU standards of care: Restraints: n/a Physical therapy/Activity: up to chair Access: PIV x3, PA Cath, Art line in L radial Family communication: Patient updated as per his current clinical status and ongoing plan of care. Goals of care: Full code SICU [place] Team, Dr. Nimesh Evans Assessment and plan has been reviewed with attending, DOMENICA Gatica Cosigned by Domenica Rod MD at 05/07/2021 3:37 PM STAFF FORESTER F FORESTER F FORESTER Associated attestation - Domenica Rod MD - 05/07/2021 3:37 PM STAFF FORESTER 60 y/o with cad s/p PCI presented with chest pain and EKG findings concernign for MT transferred here where lad showed multiple stenoses and underwent CABG 05/03. Awake and appropriate PRN opiates if needed for pain Wean off optiflow today to nasal cannula Cardiogenic shock remains on DBT with very low filling pressures. SBP dropped with wean attempt mayconsider cautious fluid administration Domenica Rod MD [facility] Department of Anesthesiology and Critical Care * Narciso Mayer MD - 05/07/2021 9:29 AM CST Pulmonary Daily Progress Chief complaint/reason for consult: Respiratory failure. Interval History: In bed 45?? head of bed upright. Chest tubes removed. Off OptiFlow and on 2 L nasal cannula oxygen.Dobutamine at 5 micrograms/kilos per minute. Poor appetite this morning. Remains alert and appears oriented Presenting History: 60 yo man w COPD, DM, CAD/stents admitted 05/01/21 with chest pain. Had recent hematuria as well. Workup revealed an acute MT. Cath showed multi-vessel CAD. Had balloon pump placed. CABG x 4 done on 05/04/21. He was continued on mechanical ventilation and self extubated this AM (05/05/21). He is on multiple pressors. Sedated with precedex. Some tachypnea. A balloon pump is in place. Current tobacco use. COPD listed as prior diagnosis. No inhalers on home med list. Allergies: Allergies Allergen Reactions ??? Metoclopramide Medications: Scheduled Meds:albuterol, 2.5 mg, nebulization, Q4H LEAH (RT) aspirin, 324 mg, oral, Daily atorvastatin, 80 mg, oral, Daily cefTRIAXone, 2,000 mg, intravenous, Q24H clopidogreL, 75 mg, oral, Daily docusate sodium, 100 mg, oral, BID enoxaparin, 40 mg, subcutaneous, Daily-2100 furosemide, 40 mg, intravenous, Q8H insulin glargine, 10 Units, subcutaneous, Nightly insulin lispro, 0-5 Units, subcutaneous, Q4H lidocaine, 2 patch, transdermal, Daily magnesium sulfate, 2 g, intravenous, Once metOLazone, 10 mg, oral, Once pantoprazole DR, 40 mg, oral, Daily polyethylene glycol, 17 g, oral, Daily potassium chloride ER, 30 mEq, oral, Q4H QUEtiapine, 25 mg, oral, Nightly sodium chloride 0.9%, 0.5-20 mL, intra-catheter, Q8H LEAH Continuous Infusions:dexmedeTOMIDine, 0-1.5 mcg/kg/hr, Last Rate: Stopped (05/06/21 1600) DOButamine, 5 mcg/kg/min, Last Rate: 5 mcg/kg/min (05/07/21 0758) norepinephrine, 0-2 mcg/kg/min, Last Rate: Stopped (05/06/21 0135) sodium chloride 0.9 %, 3,000 mL sodium chloride 0.9%, 20 mL/hr, Last Rate: 20 mL/hr (05/04/21 2309) sodium chloride 0.9%, 3-12 mL/hr PRN Meds:.??? acetaminophen ??? albumin ??? dextrose OR dextrose ??? glucagon ??? hydrALAZINE ??? ondansetron ??? oxyCODONE ??? potassium chloride ??? prochlorperazine ??? traZODone ROS Above review of system reviewed on 05/07/2021 Vitals: Vitals: 05/07/21 0745 05/07/21 0800 05/07/21 0815 05/07/21 0830 BP: 96/57 103/56 Pulse: 74 70 82 82 Resp: Temp: TempSrc: SpO2: 95% 93% 94% 94% Weight: Height: No data recorded. FiO2 (%): [40 %-70 %] 40 % Intake/Output Summary (Last 24 hours) at 05/07/2021 0929 Last data filed at 05/07/2021 0900 Gross per 24 hour Intake 1554 ml Output 3265 ml Net -1711 ml Physical Exam Constitutional: General: He is not in acute distress. Appearance: He is well-developed. HENT: Head: Normocephalic and atraumatic. Eyes: Conjunctiva/sclera: Conjunctivae normal. Neck: Thyroid: No thyromegaly. Cardiovascular: Rate and Rhythm: Normal rate and regular rhythm. Heart sounds: No murmur heard. No friction rub. Pulmonary: Effort: Pulmonary effort is normal. No respiratory distress. Breath sounds: Normal breath sounds. No stridor. No wheezing or rales. Chest: Comments: Sternotomy incision Abdominal: General: Bowel sounds are normal. Palpations: Abdomen is soft. Skin: General: Skin is warm and dry. Neurological: Mental Status: He is alert. Lab/Radiology/Diagnostic Review: Labs: Recent Labs Lab Units 05/07/21 0421 05/06/21 1312 05/06/21 0332 05/05/21 1204 05/05/21 0419 05/02/213 05/01/212218 WBC K/cumm 16.6* 16.1* 14.6* < > 13.2* < > 15.7* HEMOGLOBIN, POC -- -- -- -- -- < > -- HEMOGLOBIN g/dL 8.6* 9.0* 9.2* < > 10.7* < > 9.4* HEMATOCRIT % 25.5* 26.5* 27.9* < > 30.4* < > 28.2* HEMATOCRIT POC -- -- -- -- -- < > -- PLATELETS K/cumm 197 202 204 < > 191 < > 312 NEUTROS PCT % -- -- -- -- 84.2 -- 73.4 LYMPHS PCT % -- -- -- -- 3.1 -- 15.5 MONOS PCT % -- -- -- -- 11.2 -- 9.8 EOS PCT % -- -- -- -- 0.2 -- 0.6 < > = values in this interval not displayed. Recent Labs Lab Units 05/07/21 0855 05/07/21 0421 05/07/21 0419 05/06/21 2314 05/06/21 2313 05/06/21 1546 05/06/21 1312 05/04/21 0803 05/04/21 0247 05/03/21 0736 05/03/21 0419 05/02/21 0443 05/01/212218 SODIUM mmol/L -- 137 -- 138 -- -- 139 < > 131* < > 136 < > 134* POTASSIUM PLASMA mmol/L -- 3.3 -- 3.6 -- -- 3.4 < > 4.0 < > 4.0 < > 4.0 CHLORIDE mmol/L -- 103 -- 104 -- -- 107 < > 100 < > 105 < > 103 CO2 mmol/L -- 18* -- 19* -- -- 22 < > 20* < > 19* < > 19* ANIONGAP mmol/L -- 16* -- 15 -- -- 10 < > 11 < > 12 < > 12 GLUCOSE mg/dL -- 152 -- 169 -- < > 163 < > 231* < > 115 < > 157 POC GLUCOSE MONITOR mg/dL 153 -- 146 -- < > < > -- < > -- < > -- < > -- BUN SERUM mg/dL -- 16 -- 17 -- -- 15 < > 7* < > 6* < > 9 CREATININE mg/dL -- 0.59* -- 0.62* -- -- 0.69* < > 0.58* < > 0.51* < > 0.63* CALCIUM mg/dL -- 8.1* -- 8.3* -- -- 8.2* < > 8.5 < > 8.6 < > 8.1* ALBUMIN g/dL -- -- -- -- -- -- -- -- 3.1* -- 3.2* -- 3.2* ALK PHOS Units/L -- -- -- -- -- -- -- -- 69 -- 70 -- 64 ALT Units/L -- -- -- -- -- -- -- -- 18 -- 23 -- 28 AST Units/L -- -- -- -- -- -- -- -- 50 -- 98* -- 245* BILIRUBIN TOTAL mg/dL -- -- -- -- -- -- -- -- 0.4 -- 0.4 -- 0.3 < > = values in this interval not displayed. Recent Labs Lab Units 05/05/21 1605 05/05/21 1204 05/05/21 1015 PH ART 7.43 7.44 7.45 PCO2 ART mmHg 29* 30* 29* PO2 ART mmHg 82* 66* 75* HCO3 ART (CALC) mmol/L 21 22 22 BASE EXC ART mmol/L -4 -3 -4 O2 SAT ART (JOELLE) % 97* 94 96* Imaging: CXR 05/06/21: PVC Other diagnostic tests: I have personally reviewed above laboratory findings, chest imaging, and diagnostic tests 05/07/2021 Assessment and Plan: Acute respiratory failure Acute MT w CAD s/p CABG x 4 on 05/04/21, past hx multiple stents Cardiogenic shock Cardiomyopathy EF 40% V fib Hx COPD Anemia Infiltrates: edema v pna ?? Recs: Oxygen as required Incentive inspirometry Hemodynamic support abx coverage for pna Scheduled bronchodilators Follow CXR ?? Chart reviewed Discussed w RN F FORESTER * Deirdre Conley, OT - 05/07/2021 8:34 AM CST Occupational Therapy NOTE / SESSION TYPE: Initial Evaluation Patient Name: Deepak Alavrado Date of : 1960 Age / Sex: 60 y.o. / male Room: [place] [address] Admit Date: 05/01/2021 Date of Service: 05/07/21 Time In: 08:34 Time Out: 09:22 Primary Diagnosis: ST elevation myocardial infarction (STEMI) ([facility]) HPI: Deepak Alvarado is a 60 y.o. male who presents with retrosternal chest pain accompanied by sweating and shortness of breath. Patient underwent bladder surgery (cystoscopy, clot evacuation, and transurethral resection of bladder tumor) at [facility] 04/30/2021 and was discharged 05/01/2021. Patient transferred to for emergent cardiac catheterization. Patient admitted with acute anterior wall MT, s/p cardiac cath with PTCA of the LAD and diagonal, intra-aortic balloon pump placement 05/01, CAD, s/p CABG x4 on 05/04/2021 - Dr. Granados. Patient self-extubated on 05/05/2021, post-op tachypnea, acute respiratory failure, cardiogenic shock, cardiomyopathy, EF 40%, s/p IABP removal 05/06/2021 Notable History: CAD, s/p multiple stents, HTN, hyperlipidemia, DM, PVD, obesity, tobacco use Past Medical History: Diagnosis Date ??? Chronic obstructive pulmonary disease (CMS/HCC) (HCC) COPD ??? Coronary artery disease ??? Diabetes mellitus (HCC) ??? H/O heart artery stent 2006 ??? Hypertension Hypertension ??? ST elevation (STEMI) myocardial infarction (HCC) 05/01/2021 No past surgical history on file. Precautions (Including Weight-Bearing): Fall risk, Sternal precautions and Cardiac precautions Caregiver Present for Session (Yes or No): No SUBJECTIVE: Patient Comment: What are we going to do about my back? - Nursing applied Lidocaine patches during therapy session Pain Assessment: Pre-therapy pain level: 8 / 10 Pain location: chest (at site of incision) and bilateral ribs Pain intervention(s): Repositioned and RN Notified Post-therapy pain level: 0 / 10 Pain scale used: 0-10 SCALE Prior Living Environment and Level of Function: Lives with: and two children (ages 15 and 16) Receives assistance from / other social supports available: supportive family who is able to provide 24 hour assistance upon discharge as needed Living environment (Type of residence / Entrance accessibility): 1-story house/ trailer, number of outside stairs: ramped entrance without handrails, number of inside stairs: 0 steps - no basement Bathroom location and setup: Main floor and Tub/shower combination Prior level of function: Prior to admission patient independent with: Bathing, Dressing - Upper Body, Dressing - Lower Body,Eating / Feeding, Gait, Grooming, Medication Management, Toileting and Transfers Patient total assistance with: House Cleaning - Light, House Cleaning - Heavy, Laundry, Meal Preparation - Simple, Meal Preparation - Complex, Paying Bills and Shopping Mobility device used prior to admission: No device Equipment available: Bedside commode, Straight cane and Wheeled walker Community access / Driving: Driven by others Vocational / Occupation: unemployed Social roles / Hobbies: enjoys sitting on my butt . Therapist provided increased encouragement forpatient to identify how he spends his time and patient reports watching television Patient / Family goal(s): Just to recover Fall(s) within the last 6 months: No OBJECTIVE: Appearance: Presentation upon OT arrival: Patient Sitting in bedside recliner Presentation upon OT departure: Patient Supine with head of bed elevated Bed / chair alarm in place and activated upon OT departure: N/A Call light within arms reach of patient at end of session: Yes Completed patient handoff and notified MANAGER RENTAL / RN, name: Octavia, of patient's location and functionalstatus upon completion of session Vital Signs: Heart rate at rest: 72 bpm SPO2 at rest: 92 % Heart rate with activity: 74 bpm SPO2 with activity: 90 % Oxygen LPM: Room air Blood pressure at rest: 107/45 Blood pressure with activity: 131/52 Cognitive / Perceptual Assessment: Patient alert and oriented x3 (person, place, and situation) Patient not oriented to time (patient states May 2001) UE ROM / Strength / Coordination: (AA)ROM - Right: WFL throughout except shoulder flexion / abduction limited to 90 degrees due to sternal precautions Strength - Right: 4-/5 throughout except shoulder flexion / abduction 3-/5 (AA)ROM - Left: WFL throughout except shoulder flexion / abduction limited to 90 degrees due to sternal precautions Strength - Left: 4-/5 throughout except shoulder flexion / abduction 3-/5 Hand Dominance: Right Hogshead Builder Strength (Right) fair Hogshead Builder Strength (Left): fair Right Serial Opposition: Decreased rate Left Serial Opposition: Decreased rate Balance: Static sitting balance: good- balance supported in bedside recliner Dynamic sitting balance: good- balance supported in bedside recliner Mobility / Transfers: Bed mobility (Components & Assistance): sit to supine using log rolling techniques with moderate assistance x2 persons Transfer(s): bedside recliner to standing position to bed transfer without device with minimal/moderate assistance x2 persons Activities of Daily Living / Living Skills: UE dressing: Not assessed due to multiple lines/tubes present in the ICU. Patient post-op open heart surgery Lower Body Dressing: Not assessed due to multiple lines/tubes present in the ICU. Patient post-op open heart surgery Footwear: Patient completed footwear of Footie(s) while Sitting in bedside chair / recliner with overall Dependent assistance / two or more helpers. Patient required assistance for donning / doffing right sock/ footie, donning / doffing left sock / footie and patient unable to reach to bilateral LE using crossed- legged techniques Other: Grooming sitting in bedside recliner, washing face with minimal assistance ASSESSMENT: Rehab Potential (Prognosis): fair Problem List: Patient has impairments including: Decreased UE ROM , Decreased UE strength, Decreased coordination, Decreased balance, Decreased mobility, Decreased endurance, Decreased cognition, Decreased communication, Decreased ADL independence, Pain and Sternal precautions. Barriers to Discharge: Pain, Cognitive deficit, Decreased motivation, Decreased endurance, Upper extremity weakness, Lower extremity weakness, Medical complications and Decreased mobility PLAN: OT Discharge Recommendations this date: Location: Inpatient rehabilitation pending qualify criteria Supervision: 24 hour Follow-up therapy recommendations: Skilled OT in Inpatient Rehabilitation setting Frequency of therapy: 3-5 times / week Intervention / Education needs: ADL training, Compensatory ADL strategies, Adaptive equipment education, Durable medical equipment education, Balance activities, Functional transfer training, Safety education, Precautions education, Pursed lip breathing / Relaxation techniques, UE home exercise prog quintin education, Family training as appropriate and Energy conservation techniques Education provided: Patient has been educated on Role of OT, OT plan of care, ADL training, Compensatory ADL strategies, Bed mobility training, Functional transfer training, Safety education, Sternalprecautions and The following handouts were provided Open heart surgery discharge instructions. Individual(s) needs ongoing reinforcement and demonstrates no evidence of learning. Short Term Goals / Care Plan: Multi-Disciplinary Problems (from Occupational Therapy) Active Problems Problem: [place] [facility] [place]: 05/07/21 Goal Start Date Expected End Date End Date [facility] 1 05/07/21 05/14/21 -- Goal Details: Patient will complete bathing with minimal assistance and using adaptive equipment PRN one time Goal Start Date Expected End Date End Date [facility] 2 05/07/21 05/14/21 -- Goal Details: Patient will complete UE dressing with minimal assistance one time Goal Start Date Expected End Date End Date [facility] 3 05/07/21 05/14/21 -- Goal Details: Patient will complete LE dressing with moderate assistance and using adaptive equipment PRN one time Goal Start Date Expected End Date End Date [facility] 4 05/07/21 05/14/21 -- Goal Details: Patient will complete bed/toilet transfers with minimal assistance x1 person and using appropriate device PRN one time each Goal Start Date Expected End Date End Date [facility] 5 05/07/21 05/14/21 -- Goal Details: Patient will complete chest mobilization exercises with moderate verbal cues one time Goal Start Date Expected End Date End Date [facility] 6 05/07/21 05/14/21 -- Goal Details: Patient will adhere to sternal precautions during ADLS with minimal verbal cues one time Goal Start Date Expected End Date End Date [facility] 7 05/07/21 05/14/21 -- Goal Details: Patient will be oriented x4 using visual cues as needed one time If this is the last note, consider this the discharge summary Deirdre Conley OT 05/07/21 F FORESTER * Lise Suggs NP - 05/07/2021 8:05 AM CST Urology Progress Note Subjective Deepak Alvarado is a 60 y.o. male that we are seeing for gross hematuria with clot formation. CBI is off. Nurses report hematuria without clots overnight Lab/Radiology/Diagnostic Review: Most Recent: Vitals: 05/07/21 0700 BP: Pulse: 76 Resp: 21 Temp: SpO2: 96% Review of Systems: All other systems except the HPI are negative. Objective Physical exam: Constitutional: Appears well-developed and well-nourished. Head: Normocephalic and atraumatic. Eyes: Conjunctivae and EOM are normal. Pulmonary/Chest: Effort normal with no respiratory distress noted Musculoskeletal: Normal range of motion. Resting quietly in the chair Neurological: Alert and oriented to person, place, and time. Psychiatric: Normal mood and affect. Behavior is normal. Extremities: warm and well perfused : [address] Indw[address] Osorio catheter is patent draining dark hematuria with no clots Assessment /Plan Principal Problem: ST elevation myocardial infarction (STEMI) ([facility]) 60 y.o. male with gross hematuria with clot formation. Continue to monitor urinary output and provide catheter care. Irrigate with 60 mL of saline as needed for occlusion. Continue to monitor serial hemoglobins. Will continue to follow. Thank you for allowing Urology to be a part of the care of your patient. Please call if you have any questions. Lise Suggs NP Urology Division [facility] Office [phone] 05/07/2021 8:06 AM Cosigned by Edward Trejo DO at 05/07/2021 12:24 PM STAFF FORESTER F FORESTER F FORESTER * Laly Lopes MD - 05/07/2021 7:25 AM CST Cardiothoracic Surgery Progress Note Deepak Alvarado 1960 Hospital DAY#6 2 Days Post-Op s/p: Procedures: * CORONARY ARTERY BYPASS GRAFT x 4 - LEFT INTERNAL MAMMARY ARTERY TAKEDOWN, RIGHT SAPHENOUS VEIN ENDOHARVEST, CARDIOPULMONARY BYPASS, TRANSESOPHAGEAL ECHOCARDIOGRAM Subjective: IABP removed yesterday. NSR overnight. No acute events. OBJECTIVE: Vitals: Pulse: [65-88] 76 BP: (86-140)/(35-109) 114/56 Resp: [0-37] 21 SpO2: [86 %-100 %] 96 % SVO2: [44 %-68 %] 52 % Arterial Line BP: (84-292)/(40-273) 101/47 FiO2 (%): [40 %-70 %] 40 % PAP: 25/10 (05/07 0700) CVP: 4 mmHg (05/07 07) PCWP: -- CO: -- CI: -- SVO2: 52 % (05/07 07) Pacemaker Overdrive Pacing: -- Cardiac Rhythm: Normal sinus rhythm (05/07 400) Pacer Mode: VVI (05/07 400) Wt Readings from Last 3 Encounters: 05/06/21 91.4 kg (201 lb 8 oz) 08/27/13 114.3 kg (252 lb) 10/19/12 111.6 kg (246 lb) I/O last 2 completed shifts: In: 1554 [I.V.:1554] Out: 3220 [Urine:2700; Chest Tube:520] Physical Exam HENT: Mouth/Throat: Mouth: Mucous membranes are moist. Eyes: Pupils: Pupils are equal, round, and reactive to light. Cardiovascular: Rate and Rhythm: Normal rate and regular rhythm. Pulses: Normal pulses. Heart sounds: Normal heart sounds. Pulmonary: Effort: Pulmonary effort is normal. Breath sounds: Normal breath sounds. Musculoskeletal: General: Normal range of motion. Right lower leg: No edema. Left lower leg: No edema. Neurological: General: No focal deficit present. Mental Status: He is alert and oriented to person, place, and time. Psychiatric: Behavior: Behavior normal. Chest tube output: serosanguinous, airleak: No, suction: -20mmHg Access: central line, swan and peripheral IV Recent Labs Lab Units 05/07/21 0421 05/06/21 1312 05/06/21 0332 WBC K/cumm 16.6* 16.1* 14.6* HEMOGLOBIN g/dL 8.6* 9.0* 9.2* HEMATOCRIT % 25.5* 26.5* 27.9* PLATELETS K/cumm 197 202 204 Recent Labs Lab Units 05/07/21 0421 05/06/21 2314 05/06/21 1312 SODIUM mmol/L 137 138 139 POTASSIUM PLASMA mmol/L 3.3 3.6 3.4 CHLORIDE mmol/L 103 104 107 CO2 mmol/L 18* 19* 22 BUN SERUM mg/dL 16 17 15 CREATININE mg/dL 0.59* 0.62* 0.69* CALCIUM mg/dL 8.1* 8.3* 8.2* Recent Labs Lab Units 05/05/21 0021 05/04/21 2135 05/04/21 0247 PROTIME (PT) sec 14.4* 14.8* 13.4 INR 1.3* 1.3* 1.2 APTT sec 33 30 57* Recent Labs Lab Units 05/05/21 1605 05/05/21 1204 05/05/21 1015 PH ART 7.43 7.44 7.45 PCO2 ART mmHg 29* 30* 29* PO2 ART mmHg 82* 66* 75* BASE EXC ART mmol/L -4 -3 -4 Drips: dobutamine 5 mcg/kg/min Imaging: Today's CXR bilateral pulm edema with REKHA infiltrate. Assessment and Plan: 60 y.o. 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 Keep PAC. PRN hydral for HTN. ASA, statin, plavix. Pulm: Wean O2 as tolerated GI: CLD Renal: Lasix TID ID: Cont CTX for 7 day course for PNA D/L/T: DC CT today Prophylaxis: Lovenox Dispo: CVU Laly Lopes MD Cardiothoracic Surgery [facility] Cosigned by Rhina Granados MD at 05/08/2021 1:57 PM STAFF FORESTER F FORESTER F FORESTER * Lise Suggs NP - 05/06/2021 4:44 PM CST Urology Progress Note Subjective Deepak Alvarado is a 60 y.o. male that we are seeing for gross hematuria. CBI is off yet still attached. Patient voices no complaints with the catheter Most Recent: Vitals: 05/06/21 1630 BP: 93/60 Pulse: 68 Resp: 26 Temp: SpO2: 90% Review of Systems: All other systems except the HPI are negative. Objective Physical exam: Constitutional: Appears well-developed and well-nourished. Head: Normocephalic and atraumatic. Eyes: Conjunctivae and EOM are normal. Pulmonary/Chest: Effort normal with no respiratory distress noted Musculoskeletal: Normal range of motion resting in the chair. Neurological: Alert and oriented to person, place, and time. Psychiatric: Normal mood and affect. Behavior is normal. Extremities: warm and well perfused : #[address] hematuria catheter is draining cranberry juice colored urine with no blood clots appreciated. CBI is off. Assessment /Plan Principal Problem: ST elevation myocardial infarction (STEMI) (HCC) 60 y.o. male with gross hematuria and clot retention. Continue to hold the CBI for now. Continue tomonitor his urinary output and provide catheter care. Irrigate with 60 mL of saline as needed for occlusion. Will continue to monitor. Thank you for allowing Urology to be a part of the care of your patient. Please call if you have any questions. Lise Suggs NP Urology Division [facility] Office [phone] 05/06/2021 4:44 PM Cosigned by Edward Trejo DO at 05/06/2021 5:04 PM STAFF FORESTER F FORESTER F FORESTER * Nalini Clayton MD - 05/06/2021 10:45 AM CST [facility] - Cardiology [facility] Progress Note Admit Date: 05/01/2021 5:20 PM @HDAYS@ PCP: Unknown, Notinfile Patient seen and examined Chart , telemtry reviewed Symptoms Patient denies chest pain, palpitations, sweating or syncope.Requiring high flow O2 in sinus rhythmno VT overnight, Data Vitals: 05/06/21 0945 05/06/21 1000 05/06/21 1015 05/06/21 1030 BP: 108/58 106/59 107/54 101/63 BP Location: Right arm Pulse: 73 70 70 71 Resp: 22 18 24 Temp: TempSrc: SpO2: 95% 97% 97% 96% Weight: Height: Intake/Output Summary (Last 24 hours) at 05/06/2021 1045 Last data filed at 05/06/2021 1000 Gross per 24 hour Intake 1491 ml Output 5520 ml Net -4029 ml Lab Results Component Value Date WBC 14.6 (H) 05/06/2021 WBC 13.5 (H) 05/05/2021 WBC 13.2 (H) 05/05/2021 HGB 9.2 (L) 05/06/2021 HGB 9.8 (L) 05/05/2021 HGB 10.7 (L) 05/05/2021 HGB 7.8 (L) 05/04/2021 HGB 6.9 (L) 05/04/2021 HGB 8.2 (L) 05/04/2021 HCT 27.9 (L) 05/06/2021 HCT 27.7 (L) 05/05/2021 HCT 30.4 (L) 05/05/2021 Lab Results Component Value Date SODIUM 142 05/06/2021 SODIUM 141 05/05/2021 SODIUM 141 05/05/2021 POTASSIUM 3.7 05/06/2021 POTASSIUM 3.7 05/05/2021 POTASSIUM 3.6 05/05/2021 CHLORIDE 106 05/06/2021 CHLORIDE 107 05/05/2021 CHLORIDE 106 05/05/2021 CO2 22 05/06/2021 CO2 18 (L) 05/05/2021 CO2 20 (L) 05/05/2021 CREATININE 0.71 (L) 05/06/2021 CREATININE 0.50 (L) 05/05/2021 CREATININE 0.53 (L) 05/05/2021 GLUCOSE 213 (H) 05/06/2021 GLUCOSE 203 (H) 05/06/2021 GLUCOSE 212 (H) 05/05/2021 GLUCOSE 230 (H) 05/05/2021 GLUCOSE 153 05/05/2021 GLUCOSE 163 05/05/2021 CALCIUM 8.3 (L) 05/06/2021 CALCIUM 8.2 (L) 05/05/2021 CALCIUM 8.3 (L) 05/05/2021 No results found for: PTT Lab Results Component Value Date PT 14.4 (H) 05/05/2021 PT 14.8 (H) 05/04/2021 PT 13.4 05/04/2021 Lab Results Component Value Date INR 1.3 (H) 05/05/2021 INR 1.3 (H) 05/04/2021 INR 1.2 05/04/2021 No results found for: BNP No components found for: TROPONIN No results found for: CHOL, TRIG, HDL, LDLCALC Lab Results Component Value Date ALBUMIN 3.1 (L) 05/04/2021 ALKPHOS 69 05/04/2021 ALT 18 05/04/2021 AST 50 05/04/2021 No components found for: MAGMGDL No results found for: TSH No results found for: T3FREE No results found for: [id number] Pain Assessment: 0-10 Pain Score: 6 Patient's Stated Pain Goal: No pain Pain Type: Surgical pain Pain Location: Chest Pain Orientation: Mid Pain Interventions: Medication (See MAR) Meds MEDICATIONS FOR CURRENT ENCOUNTER: SCHEDULED MEDICATIONS: Scheduled Medications Medication Dose Route Frequency ??? albuterol 2.5 mg /3 mL (0.083 %) nebulizer solution 2.5 mg 2.5 mg nebulization Q4H LEAH (RT) ??? aspirin chewable tablet 324 mg 324 mg oral Daily ??? atorvastatin (LIPITOR) tablet 80 mg 80 mg oral Daily ??? cefepime (MAXIPIME) 1,000 mg in sodium chloride 0.9% 100 mL IVPB 1,000 mg intravenous Q8H ??? clopidogreL (PLAVIX) tablet 75 mg 75 mg oral Daily ??? docusate sodium (COLACE) capsule 100 mg 100 mg oral BID Or ??? docusate (COLACE) 10 mg/mL oral liquid 100 mg 100 mg feeding tube BID ??? furosemide (LASIX) 10 mg/mL injection 40 mg 40 mg intravenous Q8H ??? insulin glargine (LANTUS, SEMGLEE) 100 unit/mL injection 10 Units 10 Units subcutaneous Nightly ??? insulin lispro (HumaLOG, ADMELOG) 100 unit/mL injection 0-5 Units 0-5 Units subcutaneous Q4H ??? ketorolac (TORADOL) injection 30 mg 30 mg intravenous Q6H ??? lidocaine (LIDODERM) 5 % patch 2 patch 2 patch transdermal Daily ??? pantoprazole (PROTONIX) 4 mg/mL injection 40 mg 40 mg intravenous Daily ??? sodium chloride 0.9% flush 0.5-20 mL 0.5-20 mL intra-catheter Q8H LEAH ?? CONTINUOUS MEDICATIONS: Continuous Medications Medication Dose Last Rate ??? dexmedeTOMIDine in 0.9% sodium chloride (PRECEDEX) 400 mcg/100 mL (4 mcg/mL) infusion (premix) 0-1.5 mcg/kg/hr 0.5 mcg/kg/hr (05/06/21 1000) ??? DOBUTamine in dextrose 5% (DOBUTREX) 1,000 mg/250 mL (4,000 mcg/mL) infusion (premix) 5 mcg/kg/min 5 mcg/kg/min (05/06/21 1000) ??? insulin regular (HumuLIN R, NovoLIN R) 100 Units in sodium chloride 0.9% 100 mL (1 Units/mL) infusion 0-30 Units/hr 0 Units/hr (05/05/21 0816) ??? norepinephrine in 0.9% sodium chloride (LEVOPHED) 8,000 mcg/250 mL (32 mcg/mL) infusion (premix) 0-2 mcg/kg/min Stopped (05/06/21 0135) ??? sodium chloride 0.9 % irrigation for CBI 3,000 mL 3,000 mL ??? sodium chloride 0.9% infusion 20 mL/hr 20 mL/hr (05/04/21 2809) ??? sodium chloride 0.9% solution 3-12 mL/hr ? PRN MEDICATIONS: PRN Medications Medication Dose Route Frequency Last Admin ??? acetaminophen (TYLENOL) tablet 1,000 mg 1,000 mg oral Q6H PRN 1,000 mg at 05/06/21 1028 ??? albumin 5 % bottle 12.5 g 12.5 g intravenous Q15 Min PRN 12.5 g at 05/04/21 2300 ??? dextrose oral liquid liquid 15 g 15 g oral Q15 Min PRN Or ??? dextrose (D10W) 10% bolus 250 mL 250 mL intravenous Q15 Min PRN ??? glucagon injection 1 mg 1 mg intramuscular Q30 Min PRN ??? hydrALAZINE (APRESOLINE) injection 10 mg 10 mg intravenous Q6H PRN 10 mg at 05/06/21 0824 ??? ondansetron (ZOFRAN) injection 4 mg 4 mg intravenous Q6H PRN ??? oxyCODONE (ROXICODONE) tablet 5 mg 5 mg oral Q4H PRN 5 mg at 05/06/21 0951 ??? potassium chloride 20 mEq/50 mL in sterile water (premix) 20 mEq 20 mEq intravenous Q1H PRN 20 mEq at 05/06/21 0721 ??? prochlorperazine (COMPAZINE) injection 10 mg 10 mg intravenous Q6H PRN Allergies Allergen Reactions ??? Metoclopramide Review of Systems: All systems were reviewed. Pertinent positives are mentioned above. Exam General appearance: alert, cooperative, mildly dyspenic Neck: No JVD. No carotid Bruit Chest:Decreased air entry bilaterally,fewbasal crepts Cardiovascular: regular rate, rhythm, normal S1 and S2, without rub, gallops. PSM 2/6 Abdomen: soft without mass, non-tender, with normal bowel sounds Extremities: no clubbing, cyanosis or edema. Peripheral pulse palpable Assessment /Plan 1. Coronary artery disease: Patient presented to [facility] with an acute STEMI. Catheterization revealed multivessel disease. Patient underwent four-vessel bypass yesterday. He bypass consisted of a MAE to the LAD, sequential saphenous vein graft to diagonal and obtuse marginal and a vein graft to the PDA. Currently requiring low dose dobutamine. Continue per CTS.Start low dose beta blockers once off dioutamine. On lasix Moderate LV dysfunction: On lasix, dobutamine.[employer]ockers, POLINA once ff dobutamine. ?? 2. Nonsustained ventricular tachycardia: Apparently postoperatively the patient has had some runs of ventricular tachycardia requiring amiodarone. Amiodarone resulted in bradycardia and has subsequently been stopped. Currently is in a paced rhythm. No recurrence. ?? 3. Diabetes mellitus: Continue current care ?? 4. COPD: Currently on highflow O2 ?? 5. Dyslipidemia: Continue atorvastatin. ?? 6. PAD: Stable ?? 7. Recent bladder tumor removal: He has some clots in his urine, is currently receiving bladder irrigation. Urology is following.H/H stable ? Nalini Clayton MD F FORESTER F FORESTER * Ralf Tomlinson MD - 05/06/2021 10:09 AM CST Pulmonary Daily Progress Chief complaint/reason for consult: Respiratory failure. Interval History: On optiflow this morning, required some bipap yesterday More awake and alert On dobutamine, balloon pump out Low grade fevers Presenting History: 60 yo man w COPD, DM, CAD/stents admitted 05/01/21 with chest pain. Had recent hematuria as well. Workup revealed an acute MT. Cath showed multi-vessel CAD. Had balloon pump placed. CABG x 4 done on 05/04/21. He was continued on mechanical ventilation and self extubated this AM (05/05/21). He is on multiple pressors. Sedated with precedex. Some tachypnea. A balloon pump is in place. Current tobacco use. COPD listed as prior diagnosis. No inhalers on home med list. Allergies: Allergies Allergen Reactions ??? Metoclopramide Medications: Scheduled Meds:albuterol, 2.5 mg, nebulization, Q4H LEAH (RT) aspirin, 324 mg, oral, Daily atorvastatin, 80 mg, oral, Daily cefepime, 1,000 mg, intravenous, Q8H clopidogreL, 75 mg, oral, Daily docusate sodium, 100 mg, oral, BID Or docusate, 100 mg, feeding tube, BID furosemide, 40 mg, intravenous, Q8H insulin glargine, 10 Units, subcutaneous, Nightly insulin lispro, 0-5 Units, subcutaneous, Q4H ketorolac, 30 mg, intravenous, Q6H lidocaine, 2 patch, transdermal, Daily pantoprazole, 40 mg, intravenous, Daily sodium chloride 0.9%, 0.5-20 mL, intra-catheter, Q8H LEAH Continuous Infusions:dexmedeTOMIDine, 0-1.5 mcg/kg/hr, Last Rate: 0.5 mcg/kg/hr (05/06/21 0925) DOButamine, 5 mcg/kg/min, Last Rate: 5 mcg/kg/min (05/06/21 0800) insulin regular, 0-30 Units/hr, Last Rate: 0 Units/hr (05/05/21 0816) norepinephrine, 0-2 mcg/kg/min, Last Rate: Stopped (05/06/21 0135) sodium chloride 0.9 %, 3,000 mL sodium chloride 0.9%, 20 mL/hr, Last Rate: 20 mL/hr (05/04/21 2309) sodium chloride 0.9%, 3-12 mL/hr PRN Meds:.??? acetaminophen ??? albumin ??? dextrose OR dextrose ??? glucagon ??? hydrALAZINE ??? ondansetron ??? oxyCODONE ??? potassium chloride ??? prochlorperazine JHONNY Above review of system reviewed on 05/06/2021 Vitals: Vitals: 05/06/21 0915 05/06/21 0930 05/06/21 0945 05/06/21 1000 BP: (!) 89/45 91/47 108/58 106/59 Pulse: 75 70 73 70 Resp: Temp: TempSrc: SpO2: 95% 95% 95% 97% Weight: Height: No data recorded. FiO2 (%): [40 %-70 %] 70 % Intake/Output Summary (Last 24 hours) at 05/06/2021 1009 Last data filed at 05/06/2021 0800 Gross per 24 hour Intake 1491 ml Output 4920 ml Net -3429 ml Physical Exam Constitutional: General: He is not in acute distress. Appearance: He is well-developed. HENT: Head: Normocephalic and atraumatic. Eyes: Conjunctiva/sclera: Conjunctivae normal. Neck: Thyroid: No thyromegaly. Cardiovascular: Rate and Rhythm: Normal rate and regular rhythm. Heart sounds: No murmur heard. No friction rub. Pulmonary: Effort: Pulmonary effort is normal. No respiratory distress. Breath sounds: Normal breath sounds. No stridor. No wheezing or rales. Chest: Comments: Sternotomy incision Abdominal: General: Bowel sounds are normal. Palpations: Abdomen is soft. Skin: General: Skin is warm and dry. Neurological: Mental Status: He is alert. Lab/Radiology/Diagnostic Review: Labs: Recent Labs Lab Units 05/06/21 0332 05/05/21 1204 05/05/21 0419 05/02/[id number]/[id number] WBC K/cumm 14.6* 13.5* 13.2* < > 15.7* HEMOGLOBIN, POC -- -- -- < > -- HEMOGLOBIN g/dL 9.2* 9.8* 10.7* < > 9.4* HEMATOCRIT % 27.9* 27.7* 30.4* < > 28.2* HEMATOCRIT POC -- -- -- < > -- PLATELETS K/cumm 204 193 191 < > 312 NEUTROS PCT % -- -- 84.2 -- 73.4 LYMPHS PCT % -- -- 3.1 -- 15.5 MONOS PCT % -- -- 11.2 -- 9.8 EOS PCT % -- -- 0.2 -- 0.6 < > = values in this interval not displayed. Recent Labs Lab Units 05/06/21 0741 05/06/21 0332 05/05/21 2352 05/05/21 1612 05/05/21 1605 05/05/21 1207 05/05/21 1204 05/04/21 0803 05/04/21 0247 05/03/21 0736 05/03/21 0419 05/02/[id number] SODIUM mmol/L -- 142 -- -- 141 -- 141 < > 131* < > 136 < > 134* POTASSIUM PLASMA mmol/L -- 3.7 -- -- 3.7 -- 3.6 < > 4.0 < > 4.0 < > 4.0 CHLORIDE mmol/L -- 106 -- -- 107 -- 106 < > 100 < > 105 < > 103 CO2 mmol/L -- 22 -- -- 18* -- 20* < > 20* < > 19* < > 19* ANIONGAP mmol/L -- 14 -- -- 16* -- 15 < > 11 < > 12 < > 12 GLUCOSE mg/dL -- 203* -- -- 153 < > 163 < > 231* < > 115 < > 157 POC GLUCOSE MONITOR mg/dL 213* -- 212* < > -- < > -- < > -- < > -- < > -- BUN SERUM mg/dL -- 10 -- -- 7* -- 7* < > 7* < > 6* < > 9 CREATININE mg/dL -- 0.71* -- -- 0.50* -- 0.53* < > 0.58* < > 0.51* < > 0.63* CALCIUM mg/dL -- 8.3* -- -- 8.2* -- 8.3* < > 8.5 < > 8.6 < > 8.1* ALBUMIN g/dL -- -- -- -- -- -- -- -- 3.1* -- 3.2* -- 3.2* ALK PHOS Units/L -- -- -- -- -- -- -- -- 69 -- 70 -- 64 ALT Units/L -- -- -- -- -- -- -- -- 18 -- 23 -- 28 AST Units/L -- -- -- -- -- -- -- -- 50 -- 98* -- 245* BILIRUBIN TOTAL mg/dL -- -- -- -- -- -- -- -- 0.4 -- 0.4 -- 0.3 < > = values in this interval not displayed. Recent Labs Lab Units 05/05/21 1605 05/05/21 1204 05/05/21 1015 PH ART 7.43 7.44 7.45 PCO2 ART mmHg 29* 30* 29* PO2 ART mmHg 82* 66* 75* HCO3 ART (CALC) mmol/L 21 22 22 BASE EXC ART mmol/L -4 -3 -4 O2 SAT ART (JOELLE) % 97* 94 96* Imaging: CXR 05/06/21: PVC Other diagnostic tests: I have personally reviewed above laboratory findings, chest imaging, and diagnostic tests 05/06/2021 Assessment and Plan: Acute respiratory failure Acute MT w CAD s/p CABG x 4 on 05/04/21, past hx multiple stents Cardiogenic shock Cardiomyopathy EF 40% V fib Hx COPD Anemia Infiltrates: edema v pna ?? Recs: Optiflow, adjust as needed, bipap PRN Hemodynamic support abx coverage for pna Tracheal aspirate pending Scheduled bronchodilators Follow CXR ?? Chart reviewed Discussed w RN F FORESTER * Nimesh Evans MD - 05/06/2021 9:38 AM CST Images from the original note were not included. DELAYED ENTRY OF NOTE: This patient was evaluated and treated as per below on 05/06/2021 Critical Care Medicine Daily Progress Team: SICU [place] Team Subjective Interval events: No issues overnight, chronic back pain better controlled on current pain regimen. Persisting hematuria but urine appears news reporter in color. Hemoglobin stable post transfusion. O2 sats98% on 2 L nasal cannula with normal work of breathing. Hemodynamically stable, IABP remains in place, right groin areas soft and dressing intact. Distal lower extremities pulses palpable ?? 05/02/2021: NAJMA. Only complaints are of back pain from lying in bed. No chest pain shortness of breath, orthopnea, abdominal pain, n/v/d. Plan for CABG on Tuesday. 05/04/21: Increased blood clot from osorio and obstruction with pain. 05/05/21: Brief asystole o/n w turning. Stable after. Self extubated in AM. 05/06/21: NAEON. Maintained on CPAP and optiflow. ?? HPI Ms. Elias is a 60-year-old gentleman with a history of coronary artery disease status post multiple PCIs with stent placement. ??He awoke yesterday morning unable to void and was found to have hematuria for which she underwent what sounds to be a cystoscopy and a Osorio catheter was placed. ??He was discharged home and developed chest pain and shortness of breath. ??He presented to an outside hospital and was found to have EKG findings concerning for myocardial infarction. ??He was subsequentlytransferred to the cardiac catheterization lab here at [facility] where he underwent coronary angiography via right common femoral artery which demonstrated an LAD multiple stenosesand underwent PTCA of the LAD and diagonal. ??Left ventriculogram demonstrated moderate anteroapical hypokinesis. ??The case was discussed with Dr. Garnados.?An intra-aortic balloon pump was placedvia the right common femoral access in demonstrates good augmentation on bedside exam. ??He was started on Integrilin and heparin drips and transferred to the ICU for planned CABG on Tuesday. ?? Currently the patient states his chest pain is resolved and he denies shortness of breath. ??His only complaint is some back pain which she states is chronic for him when he lays down. ??He does not usually take anything for this at home. ??He denies any nausea, shortness of breath, or change in bowel habits. Scheduled Medications: albuterol, 2.5 mg, nebulization, Q4H LEAH (RT) aspirin, 324 mg, oral, Daily atorvastatin, 80 mg, oral, Daily cefTRIAXone, 2,000 mg, intravenous, Q24H clopidogreL, 75 mg, oral, Daily docusate sodium, 100 mg, oral, BID enoxaparin, 40 mg, subcutaneous, Daily-2100 furosemide, 40 mg, intravenous, Q8H insulin glargine, 10 Units, subcutaneous, Nightly insulin lispro, 0-5 Units, subcutaneous, Q4H lidocaine, 2 patch, transdermal, Daily magnesium sulfate, 2 g, intravenous, Once metOLazone, 10 mg, oral, Once pantoprazole DR, 40 mg, oral, Daily polyethylene glycol, 17 g, oral, Daily potassium chloride ER, 30 mEq, oral, Q4H QUEtiapine, 25 mg, oral, Nightly sodium chloride 0.9%, 0.5-20 mL, intra-catheter, Q8H LEAH Continuous Medications: dexmedeTOMIDine, 0-1.5 mcg/kg/hr, Last Rate: Stopped (05/06/21 1600) DOButamine, 5 mcg/kg/min, Last Rate: 5 mcg/kg/min (05/07/21 2878) norepinephrine, 0-2 mcg/kg/min, Last Rate: Stopped (05/06/21 0135) sodium chloride 0.9 %, 3,000 mL sodium chloride 0.9%, 20 mL/hr, Last Rate: 20 mL/hr (05/04/21 2309) sodium chloride 0.9%, 3-12 mL/hr PRN Medications: ??? acetaminophen ??? albumin ??? dextrose OR dextrose ??? glucagon ??? hydrALAZINE ??? ondansetron ??? oxyCODONE ??? potassium chloride ??? prochlorperazine ??? traZODone Objective Vitals: Most Recent: Vitals: 05/07/21 0830 BP: 103/56 Pulse: 82 Resp: 28 Temp: SpO2: 94% 24hr Min/Max: Pulse Min: 65 Max: 88 BP Min: 86/51 Max: 140/61 Resp Min: 0 Max: 37 SpO2 Min: 86 % Max: 100 % LDA: Arterial Sheath 8 Fr. Right Femoral (Active) Placement Date/Time: 05/01/21 1730 Catheter Time Out Checklist Completed: Yes Hand Hygiene Performed: Yes Site Prep: Alcohol;Chlorhexidine Site Prep Agent has Completely Dried Before Insertion: Yes All 5 Sterile Barriers or Appropriate Barriers ... Number of days: 2 IABP 8.0 Fr. 50 mL (Active) Placement Date/Time: 05/01/21 1834 Insertion Site: Right femoral Sutured: Yes Catheter/Balloon Size: 8.0 Fr. Balloon/ Catheter Volume: 50 mL Verification by X-ray: Yes Number of days: 2 Urethral Catheter Straight-tip (Active) Placement Date: 04/30/21 Inserted by: inserted by urologist at [facility] Placed by External Staff?: Other hospital Catheter Type: Straight-tip Catheter Balloon Size: 10 mL Urine Returned: (c) Yes Number of days: 4 I/O: Date 05/06/21699 - 05/07/21 0659 05/07/21 07 - 05/08/21 0659 Shift 3325-3012 4891-0145 24 Hour Total 8644-9488 6787-0591 24 Hour Total INTAKE I.V.(mL/kg) 1449(15.9) 105(1.1) 1554(17) Shift Total(mL/kg) 1449(15.9) 105(1.1) 1554(17) OUTPUT Urine(mL/kg/hr) 1800(1.6) 900(0.8) 2700(1.2) 75 75 Chest Tube 230 290 520 50 50 Shift Total(mL/kg) 2030(22.2) 1190(13) 3220(35.2) 125(1.4) 125(1.4) NET -581 -1085 -1666 -125 -125 Weight (kg) 91.4 91.4 91.4 91.4 91.4 91.4 Physical Exam: Gen: NAD HEENT: NC/AT, PERRLA, EOMI Neck: Supple, Trachea Midline, ETT in place CV: paced, Distal pulses intact, IABP 1:1 Pulm: diminished on left, NLR, drain tubes w ss o/p Abd: Soft, nttp : Osorio with light pink fluid, CBI Ext: No edema noted Skin: Warm, Dry Neuro: follows, no focal deficits Lab/Radiology/Diagnostic Review: Laboratory review: Lab results in the last 24 hours: Recent Results (from the past 24 hour(s)) POCT glucose Collection Time: 05/06/21 11:47 AM Result Value Ref Range Glucose, POC 169 70 - 199 mg/dL Basic metabolic panel Collection Time: 05/06/21 1:12 PM Result Value Ref Range Sodium 139 135 - 145 mmol/L Potassium, pl 3.4 3.3 - 4.9 mmol/L Chloride 107 97 - 110 mmol/L CO2 22 22 - 32 mmol/L Anion gap 10 2 - 15 mmol/L BUN 15 8 - 25 mg/dL Creatinine 0.69 (L) 0.80 - 1.30 mg/dL Glucose 163 70 - 199 mg/dL Calcium 8.2 (L) 8.5 - 10.3 mg/dL Magnesium Collection Time: 05/06/21 1:12 PM Result Value Ref Range Magnesium 1.8 1.4 - 2.5 mg/dL CBC without differential Collection Time: 05/06/21 1:12 PM Result Value Ref Range WBC 16.1 (H) 3.8 - 9.9 K/cumm Hgb 9.0 (L) 13.0 - 17.5 g/dL Hct 26.5 (L) 38.9 - 50.3 % Plt 202 150 - 400 K/cumm MPV 11.4 9.1 - 12.3 fL RBC 2.95 (L) 4.30 - 5.80 M/cumm MCV 89.8 81.3 - 96.4 fL MCH 30.5 27.1 - 33.3 pg MCHC 34.0 32.3 - 35.7 g/dL RDW CV 14.3 11.1 - 14.9 % RDW SD 46.1 35.7 - 48.1 fL NRBC abs 0.00 0.00 - 0.01 K/cumm eGFR Collection Time: 05/06/21 1:12 PM Result Value Ref Range eGFR 104 mL/min/1.73 m2 POCT glucose Collection Time: 05/06/21 3:46 PM Result Value Ref Range Glucose, POC 140 70 - 199 mg/dL POCT glucose Collection Time: 05/06/21 8:03 PM Result Value Ref Range Glucose, POC 176 70 - 199 mg/dL POCT glucose Collection Time: 05/06/21 11:13 PM Result Value Ref Range Glucose, POC 163 70 - 199 mg/dL Basic metabolic panel Collection Time: 05/06/21 11:14 PM Result Value Ref Range Sodium 138 135 - 145 mmol/L Potassium, pl 3.6 3.3 - 4.9 mmol/L Chloride 104 97 - 110 mmol/L CO2 19 (L) 22 - 32 mmol/L Anion gap 15 2 - 15 mmol/L BUN 17 8 - 25 mg/dL Creatinine 0.62 (L) 0.80 - 1.30 mg/dL Glucose 169 70 - 199 mg/dL Calcium 8.3 (L) 8.5 - 10.3 mg/dL Magnesium Collection Time: 05/06/21 11:14 PM Result Value Ref Range Magnesium 1.8 1.4 - 2.5 mg/dL eGFR Collection Time: 05/06/21 11:14 PM Result Value Ref Range eGFR 109 mL/min/1.73 m2 POCT glucose Collection Time: 05/07/21 4:19 AM Result Value Ref Range Glucose, POC 146 70 - 199 mg/dL Basic metabolic panel Collection Time: 05/07/21 4:21 AM Result Value Ref Range Sodium 137 135 - 145 mmol/L Potassium, pl 3.3 3.3 - 4.9 mmol/L Chloride 103 97 - 110 mmol/L CO2 18 (L) 22 - 32 mmol/L Anion gap 16 (H) 2 - 15 mmol/L BUN 16 8 - 25 mg/dL Creatinine 0.59 (L) 0.80 - 1.30 mg/dL Glucose 152 70 - 199 mg/dL Calcium 8.1 (L) 8.5 - 10.3 mg/dL CBC without differential Collection Time: 05/07/21 4:21 AM Result Value Ref Range WBC 16.6 (H) 3.8 - 9.9 K/cumm Hgb 8.6 (L) 13.0 - 17.5 g/dL Hct 25.5 (L) 38.9 - 50.3 % Plt 197 150 - 400 K/cumm MPV 11.3 9.1 - 12.3 fL RBC 2.76 (L) 4.30 - 5.80 M/cumm MCV 92.4 81.3 - 96.4 fL MCH 31.2 27.1 - 33.3 pg MCHC 33.7 32.3 - 35.7 g/dL RDW CV 14.3 11.1 - 14.9 % RDW SD 47.6 35.7 - 48.1 fL NRBC abs 0.00 0.00 - 0.01 K/cumm Phosphorus Collection Time: 05/07/21 4:21 AM Result Value Ref Range Phosphorus, pl 2.7 2.3 - 4.5 mg/dL Magnesium Collection Time: 05/07/21 4:21 AM Result Value Ref Range Magnesium 1.7 1.4 - 2.5 mg/dL eGFR Collection Time: 05/07/21 4:21 AM Result Value Ref Range eGFR 111 mL/min/1.73 m2 Oxyhemoglobin, central venous Collection Time: 05/07/21 6:15 AM Result Value Ref Range Oxyhemoglobin, CV 78.5 % POCT glucose Collection Time: 05/07/21 8:55 AM Result Value Ref Range Glucose, POC 153 70 - 199 mg/dL Laboratory review: Lab results in the last 24 hours: Recent Results (from the past 24 hour(s)) POCT glucose Collection Time: 05/06/21 11:47 AM Result Value Ref Range Glucose, POC 169 70 - 199 mg/dL Basic metabolic panel Collection Time: 05/06/21 1:12 PM Result Value Ref Range Sodium 139 135 - 145 mmol/L Potassium, pl 3.4 3.3 - 4.9 mmol/L Chloride 107 97 - 110 mmol/L CO2 22 22 - 32 mmol/L Anion gap 10 2 - 15 mmol/L BUN 15 8 - 25 mg/dL Creatinine 0.69 (L) 0.80 - 1.30 mg/dL Glucose 163 70 - 199 mg/dL Calcium 8.2 (L) 8.5 - 10.3 mg/dL Magnesium Collection Time: 05/06/21 1:12 PM Result Value Ref Range Magnesium 1.8 1.4 - 2.5 mg/dL CBC without differential Collection Time: 05/06/21 1:12 PM Result Value Ref Range WBC 16.1 (H) 3.8 - 9.9 K/cumm Hgb 9.0 (L) 13.0 - 17.5 g/dL Hct 26.5 (L) 38.9 - 50.3 % Plt 202 150 - 400 K/cumm MPV 11.4 9.1 - 12.3 fL RBC 2.95 (L) 4.30 - 5.80 M/cumm MCV 89.8 81.3 - 96.4 fL MCH 30.5 27.1 - 33.3 pg MCHC 34.0 32.3 - 35.7 g/dL RDW CV 14.3 11.1 - 14.9 % RDW SD 46.1 35.7 - 48.1 fL NRBC abs 0.00 0.00 - 0.01 K/cumm eGFR Collection Time: 05/06/21 1:12 PM Result Value Ref Range eGFR 104 mL/min/1.73 m2 POCT glucose Collection Time: 05/06/21 3:46 PM Result Value Ref Range Glucose, POC 140 70 - 199 mg/dL POCT glucose Collection Time: 05/06/21 8:03 PM Result Value Ref Range Glucose, POC 176 70 - 199 mg/dL POCT glucose Collection Time: 05/06/21 11:13 PM Result Value Ref Range Glucose, POC 163 70 - 199 mg/dL Basic metabolic panel Collection Time: 05/06/21 11:14 PM Result Value Ref Range Sodium 138 135 - 145 mmol/L Potassium, pl 3.6 3.3 - 4.9 mmol/L Chloride 104 97 - 110 mmol/L CO2 19 (L) 22 - 32 mmol/L Anion gap 15 2 - 15 mmol/L BUN 17 8 - 25 mg/dL Creatinine 0.62 (L) 0.80 - 1.30 mg/dL Glucose 169 70 - 199 mg/dL Calcium 8.3 (L) 8.5 - 10.3 mg/dL Magnesium Collection Time: 05/06/21 11:14 PM Result Value Ref Range Magnesium 1.8 1.4 - 2.5 mg/dL eGFR Collection Time: 05/06/21 11:14 PM Result Value Ref Range eGFR 109 mL/min/1.73 m2 POCT glucose Collection Time: 05/07/21 4:19 AM Result Value Ref Range Glucose, POC 146 70 - 199 mg/dL Basic metabolic panel Collection Time: 05/07/21 4:21 AM Result Value Ref Range Sodium 137 135 - 145 mmol/L Potassium, pl 3.3 3.3 - 4.9 mmol/L Chloride 103 97 - 110 mmol/L CO2 18 (L) 22 - 32 mmol/L Anion gap 16 (H) 2 - 15 mmol/L BUN 16 8 - 25 mg/dL Creatinine 0.59 (L) 0.80 - 1.30 mg/dL Glucose 152 70 - 199 mg/dL Calcium 8.1 (L) 8.5 - 10.3 mg/dL CBC without differential Collection Time: 05/07/21 4:21 AM Result Value Ref Range WBC 16.6 (H) 3.8 - 9.9 K/cumm Hgb 8.6 (L) 13.0 - 17.5 g/dL Hct 25.5 (L) 38.9 - 50.3 % Plt 197 150 - 400 K/cumm MPV 11.3 9.1 - 12.3 fL RBC 2.76 (L) 4.30 - 5.80 M/cumm MCV 92.4 81.3 - 96.4 fL MCH 31.2 27.1 - 33.3 pg MCHC 33.7 32.3 - 35.7 g/dL RDW CV 14.3 11.1 - 14.9 % RDW SD 47.6 35.7 - 48.1 fL NRBC abs 0.00 0.00 - 0.01 K/cumm Phosphorus Collection Time: 05/07/21 4:21 AM Result Value Ref Range Phosphorus, pl 2.7 2.3 - 4.5 mg/dL Magnesium Collection Time: 05/07/21 4:21 AM Result Value Ref Range Magnesium 1.7 1.4 - 2.5 mg/dL eGFR Collection Time: 05/07/21 4:21 AM Result Value Ref Range eGFR 111 mL/min/1.73 m2 Oxyhemoglobin, central venous Collection Time: 05/07/21 6:15 AM Result Value Ref Range Oxyhemoglobin, CV 78.5 % POCT glucose Collection Time: 05/07/21 8:55 AM Result Value Ref Range Glucose, POC 153 70 - 199 mg/dL XR Chest 1 Vw Portable Result Date: 05/04/2021 Stable appearance. COPD cardiomegaly, with mild failure suspected. Electronically signed by: Todd Kuo Plan: Neuro: #Acute on chronic pain - PRN oxycodone 5mg q4h and tylenol - delirium/fall precautions - continue to ensure adequate sleep hygiene Wean Dex ?? CV: #Anterior STEMI s/p PTCA to LAD - s/p 4V CABG 05/04 for rethrombosis of existing stents - IABP 1:1- wean to remove today #CAD - ASA 324, Statin # V fib - brief code event 05/03 night - Amio gtt - atrial paced at 90 - dobutamine per CTS #Shock - Multifactorial: cardiogenic postop, hypovolemia postop - Appears appropriately fluid resuscitated - Noninvasive cardiac monitoring, maintain CI >2.2 - Echo done 05/02 EF 40% pre-op - Metoprolol held while requiring inotropes ?? Pulmonary: - Acute respiratory failure - optiflow - maintain O2 sats greater than 92% - incentive spirometry ?? GI/Nutrition: Diet: heart healthy diet - Dietitian following PUD PPx: PPI Bowel regimen: pericolace, miralax ?? Endocrine: #Poorly controlled diabetes - Hemoglobin A1c 13.5 - SSI ?? Renal: - Cr 0.7 - UOP adequate - Urology c/s for bladder bleeding: CBI - keep Osorio catheter for strict, accurate I/Os, when applicable will discontinue Osorio catheter per the HOUDINI protocol - trend renal function, avoid nephrotoxins, renal dose medications - optimize electrolytes with caution to renal function ?-goal K ~4, Mg >??2.2, phos >??3, iCAL >??4.5 ?-provide supplement as needed ?-AM BMP and electrolytes check ?? Heme/Oncology: #Acute blood loss anemia - Hgb 9.2 - transfused 3u PRBC o/n in ICU Total with OR transfusion = 5u PRBC, 2 Plt, 2 FFP, 1 Cryo - Transfuse for hgb < 8 - CBC in am ? DVT PPX: SCD's, resume lovenox tonight ?? ID: #Community acquired PNA - Culture pending - Cefepime Musculoskeletal/Skin: High risk for skin breakdown given immobilization - skin care per unit protocol - PT/OT per post MT/CTS protocol ? ICU standards of care: Restraints: Wrist restraints required, pulled ETT, risk for pulling at lines Physical therapy/Activity: bedrest (IABP) Access: PIV x3, R fem arterial sheath w IABP, PA Cath, Art line in R fem and L radial Family communication: none at bedside. Will update as available. Patient updated as per his currentclinical status and ongoing plan of care. Goals of care: Full code SICU [place] Team, Dr. Nimesh Evans Assessment and plan has been reviewed with attending, DOMENICA Gatica Cosigned by Domenica Rod MD at 05/07/2021 7:07 PM STAFF FORESTER F FORESTER F FORESTER * Elizabeth Adan NP - 05/06/2021 9:03 AM CST General Medicine Daily Progress Reason for hospitalization: STEMI- status post coronary artery bypass graft x4 left internal mammary artery takedown, right saphenous vein and endo harvest cardiopulmonary bypass Interval Hx- 05/04/21 CABG x 4on 05/04 2021, 05/05 - self extubated ; on OptiFlow o2 ; Levophed off; on dobutamine, balloon pump in placed; hematuria resolving on continues bladder irrigation 05/06/21 - remains on optiflow O2; opens eyes intermittently; cont on dobutamine ; off balloon pump; hematuria resolved Subjective: Objective: Vitals: 05/06/21 0745 05/06/21 0800 05/06/21 0815 05/06/21 0830 BP: BP Location: Patient Position: Pulse: 83 81 79 84 Resp: 24 23 25 22 Temp: TempSrc: SpO2: 95% 95% 98% 95% Weight: Height: I/O last 2 completed shifts: In: 1491 [I.V.:1491] Out: 6295 [Urine:5550; Chest Tube:745] No intake/output data recorded. Medications: Scheduled Medications Medication Dose Route Frequency ??? albuterol 2.5 mg /3 mL (0.083 %) nebulizer solution 2.5 mg 2.5 mg nebulization Q4H LEAH (RT) ??? aspirin chewable tablet 324 mg 324 mg oral Daily ??? atorvastatin (LIPITOR) tablet 80 mg 80 mg oral Daily ??? cefepime (MAXIPIME) 1,000 mg in sodium chloride 0.9% 100 mL IVPB 1,000 mg intravenous Q8H ??? clopidogreL (PLAVIX) tablet 75 mg 75 mg oral Daily ??? docusate sodium (COLACE) capsule 100 mg 100 mg oral BID Or ??? docusate (COLACE) 10 mg/mL oral liquid 100 mg 100 mg feeding tube BID ??? furosemide (LASIX) 10 mg/mL injection 40 mg 40 mg intravenous Q8H ??? insulin glargine (LANTUS, SEMGLEE) 100 unit/mL injection 10 Units 10 Units subcutaneous Nightly ??? insulin lispro (HumaLOG, ADMELOG) 100 unit/mL injection 0-5 Units 0-5 Units subcutaneous Q4H ??? ketorolac (TORADOL) injection 30 mg 30 mg intravenous Q6H ??? lidocaine (LIDODERM) 5 % patch 2 patch 2 patch transdermal Daily ??? pantoprazole (PROTONIX) 4 mg/mL injection 40 mg 40 mg intravenous Daily ??? sodium chloride 0.9% flush 0.5-20 mL 0.5-20 mL intra-catheter Q8H LEAH Physical Exam: Gen: 60-year-old male on OptiFlow O2, Neuro: Lethargic at times Pulmonary: Diminished to ausculation; Cardiovascular: Irregular; chest incision ; chest tube ; GI: abdomen soft, non-tender; positive BS Musculoskeletal: no edema Skin: No decubitus ulcers - osorio with clear urine Labs: Labs reviewed Recent Results (from the past 24 hour(s)) POCT glucose Collection Time: 05/05/21 9:09 AM Result Value Ref Range Glucose, POC 119 70 - 199 mg/dL Aerobic culture and gram stain Tracheal aspirate Lung Collection Time: 05/05/21 9:53 AM Specimen: Lung; Tracheal aspirate Result Value Ref Range Direct Specimen Exam Stain: Moderate polymorphonuclear leukocytes seen. Few squamous epithelial cells seen. Moderate mixed bacterial tirso seen on Gram stain. Predominant Organism on Gram Stain Yeast Report (.) Preliminary Report: Insignificant growth based on current clinical standards. Blood gas, arterial Collection Time: 05/05/21 10:15 AM Result Value Ref Range pH, Art 7.45 7.35 - 7.45 PCO2, Arterial 29 (L) 35 - 45 mmHg PO2, Arterial 75 (L) 83 - 108 mmHg HCO3 Art (Calculated) 22 20 - 30 mmol/L BE, art -4 mmol/L O2 Sat Art (Measured) 96 (H) 90 - 95 % POCT glucose Collection Time: 05/05/21 10:19 AM Result Value Ref Range Glucose, POC 136 70 - 199 mg/dL POCT glucose Collection Time: 05/05/21 11:14 AM Result Value Ref Range Glucose, POC 119 70 - 199 mg/dL CBC without differential Collection Time: 05/05/21 12:04 PM Result Value Ref Range WBC 13.5 (H) 3.8 - 9.9 K/cumm Hgb 9.8 (L) 13.0 - 17.5 g/dL Hct 27.7 (L) 38.9 - 50.3 % Plt 193 150 - 400 K/cumm MPV 11.5 9.1 - 12.3 fL RBC 3.19 (L) 4.30 - 5.80 M/cumm MCV 86.8 81.3 - 96.4 fL MCH 30.7 27.1 - 33.3 pg MCHC 35.4 32.3 - 35.7 g/dL RDW CV 14.3 11.1 - 14.9 % RDW SD 44.9 35.7 - 48.1 fL NRBC abs 0.00 0.00 - 0.01 K/cumm Magnesium Collection Time: 05/05/21 12:04 PM Result Value Ref Range Magnesium 2.1 1.4 - 2.5 mg/dL Basic metabolic panel Collection Time: 05/05/21 12:04 PM Result Value Ref Range Sodium 141 135 - 145 mmol/L Potassium, pl 3.6 3.3 - 4.9 mmol/L Chloride 106 97 - 110 mmol/L CO2 20 (L) 22 - 32 mmol/L Anion gap 15 2 - 15 mmol/L BUN 7 (L) 8 - 25 mg/dL Creatinine 0.53 (L) 0.80 - 1.30 mg/dL Glucose 163 70 - 199 mg/dL Calcium 8.3 (L) 8.5 - 10.3 mg/dL Blood gas, arterial Collection Time: 05/05/21 12:04 PM Result Value Ref Range pH, Art 7.44 7.35 - 7.45 PCO2, Arterial 30 (L) 35 - 45 mmHg PO2, Arterial 66 (L) 83 - 108 mmHg HCO3 Art (Calculated) 22 20 - 30 mmol/L BE, art -3 mmol/L O2 Sat Art (Measured) 94 90 - 95 % Calcium, ionized Collection Time: 05/05/21 12:04 PM Result Value Ref Range Ca, ionized, bld 4.63 4.60 - 5.20 mg/dL Ca, ionized, bld, calc 4.74 4.60 - 5.20 mg/dL eGFR Collection Time: 05/05/21 12:04 PM Result Value Ref Range eGFR 116 mL/min/1.73 m2 POCT glucose Collection Time: 05/05/21 12:07 PM Result Value Ref Range Glucose, POC 137 70 - 199 mg/dL Blood gas, arterial Collection Time: 05/05/21 4:05 PM Result Value Ref Range pH, Art 7.43 7.35 - 7.45 PCO2, Arterial 29 (L) 35 - 45 mmHg PO2, Arterial 82 (L) 83 - 108 mmHg HCO3 Art (Calculated) 21 20 - 30 mmol/L BE, art -4 mmol/L O2 Sat Art (Measured) 97 (H) 90 - 95 % Basic metabolic panel Collection Time: 05/05/21 4:05 PM Result Value Ref Range Sodium 141 135 - 145 mmol/L Potassium, pl 3.7 3.3 - 4.9 mmol/L Chloride 107 97 - 110 mmol/L CO2 18 (L) 22 - 32 mmol/L Anion gap 16 (H) 2 - 15 mmol/L BUN 7 (L) 8 - 25 mg/dL Creatinine 0.50 (L) 0.80 - 1.30 mg/dL Glucose 153 70 - 199 mg/dL Calcium 8.2 (L) 8.5 - 10.3 mg/dL Magnesium Collection Time: 05/05/21 4:05 PM Result Value Ref Range Magnesium 2.1 1.4 - 2.5 mg/dL eGFR Collection Time: 05/05/21 4:05 PM Result Value Ref Range eGFR 119 mL/min/1.73 m2 POCT glucose Collection Time: 05/05/21 4:12 PM Result Value Ref Range Glucose, POC 149 70 - 199 mg/dL POCT glucose Collection Time: 05/05/21 8:43 PM Result Value Ref Range Glucose, POC 230 (H) 70 - 199 mg/dL POCT glucose Collection Time: 05/05/21 11:52 PM Result Value Ref Range Glucose, POC 212 (H) 70 - 199 mg/dL Basic metabolic panel Collection Time: 05/06/21 3:32 AM Result Value Ref Range Sodium 142 135 - 145 mmol/L Potassium, pl 3.7 3.3 - 4.9 mmol/L Chloride 106 97 - 110 mmol/L CO2 22 22 - 32 mmol/L Anion gap 14 2 - 15 mmol/L BUN 10 8 - 25 mg/dL Creatinine 0.71 (L) 0.80 - 1.30 mg/dL Glucose 203 (H) 70 - 199 mg/dL Calcium 8.3 (L) 8.5 - 10.3 mg/dL CBC without differential Collection Time: 05/06/21 3:32 AM Result Value Ref Range WBC 14.6 (H) 3.8 - 9.9 K/cumm Hgb 9.2 (L) 13.0 - 17.5 g/dL Hct 27.9 (L) 38.9 - 50.3 % Plt 204 150 - 400 K/cumm MPV 11.7 9.1 - 12.3 fL RBC 3.06 (L) 4.30 - 5.80 M/cumm MCV 91.2 81.3 - 96.4 fL MCH 30.1 27.1 - 33.3 pg MCHC 33.0 32.3 - 35.7 g/dL RDW CV 14.6 11.1 - 14.9 % RDW SD 47.9 35.7 - 48.1 fL NRBC abs 0.00 0.00 - 0.01 K/cumm Phosphorus Collection Time: 05/06/21 3:32 AM Result Value Ref Range Phosphorus, pl 3.7 2.3 - 4.5 mg/dL Magnesium Collection Time: 05/06/21 3:32 AM Result Value Ref Range Magnesium 2.0 1.4 - 2.5 mg/dL eGFR Collection Time: 05/06/21 3:32 AM Result Value Ref Range eGFR 103 mL/min/1.73 m2 POCT glucose Collection Time: 05/06/21 7:41 AM Result Value Ref Range Glucose, POC 213 (H) 70 - 199 mg/dL Cardiac cath cardiac catheterization on 05/01/2021 with PTCA of LAD done using 3.0, 3.5 balloon and of diagnol using 1.5, 2.0, 2.5 balloons and flow restored. IABP on 05/01/2021. Assessment & Plan: Acute MT with CAD s/p CABG x4; - cardio/ CTS consults reviewed ; on IABP 1:1 ; cont on dobutamine; cont asa and statin Shock - cardiogenic ; post op Cabg - s/p fluid resuscitation ; levophed weaned off; cont on dobutamine - court monitor V fib - briefly on 05/03 - s/p amiodarone ; now on dobutamine ; BB restarted 05/06 Gross Hematuria - in a pt with hx of cystoscopy, clot evacuation and transurethral resection of bladder tumor at [facility] ; urology consult ; s/p [address]; continuousirrigation -resolved Acute resp failure - self ext 05/05/21 ; now on optiflow O2; wean O2 ; keep sats>90% ; IS when awake Lung infiltrates - pulm vascular congestion versus pneumonia; currently on Lasix IV and broad-spectrum antibiotics cefepime Hyperlipidemia. On statin. Type 2 diabetes. - on insulin IV for now ; accuchecks Acute blood loss anemia ; s/p PRBC transfusions in ICU and OR, transfuse for hemoglobin less than 8, CBC Tobacco use. Vitamin-D deficiency.- stable Prophylaxis. Protonix, Elizabeth Adan, ANP [facility] [phone] 05/06/2021 9:03 AM F FORESTER * Marylu Dempsey, PT - 05/06/2021 8:58 AM CST Physical Therapy Physical Therapy continues on medical cancel. Patient currently on bedrest due to IABP. Plans to wean and remove IABP today per RN report. Patient remain extubated on optiflow HFNC. Will attempt evaluation at later time when patient able to participate. Marylu Moreno, PT 05/06/21 9:00 AM F FORESTER * Laly Lopes MD - 05/06/2021 7:45 AM CST Cardiothoracic Surgery Progress Note Deepak Alvarado 1960 [facility] DAY#5 2 Days Post-Op s/p: Procedures: * CORONARY ARTERY BYPASS GRAFT x 4 - LEFT INTERNAL MAMMARY ARTERY TAKEDOWN, RIGHT SAPHENOUS VEIN ENDOHARVEST, CARDIOPULMONARY BYPASS, TRANSESOPHAGEAL ECHOCARDIOGRAM Subjective: No acute events overnight. IABP weaned to 1:3 at 6 am. Hypertensive with CI >2.5. OBJECTIVE: Vitals: Pulse: [82-90] 82 Resp: [15-39] 28 SpO2: [84 %-98 %] 97 % SVO2: [53 %-69 %] 66 % Arterial Line BP: (82-168)/(39-111) 165/73 FiO2 (%): [40 %-100 %] 70 % PAP: / (05/06 730) CVP: 8 mmHg (05/06 730) PCWP: -- CO: -- CI: -- SVO2: 66 % (05/06 730) Pacemaker Overdrive Pacing: -- Cardiac Rhythm: A-V Sequential paced (05/06 400) Pacer Mode: DDD (05/06 400) Wt Readings from Last 3 Encounters: 05/06/21 91.4 kg (201 lb 8 oz) 08/27/13 114.3 kg (252 lb) 10/19/12 111.6 kg (246 lb) I/O last 2 completed shifts: In: 1491 [I.V.:1491] Out: 6295 [Urine:5550; Chest Tube:745] Physical Exam HENT: Mouth/Throat: Mouth: Mucous membranes are moist. Eyes: Pupils: Pupils are equal, round, and reactive to light. Cardiovascular: Rate and Rhythm: Normal rate and regular rhythm. Pulses: Normal pulses. Heart sounds: Normal heart sounds. Pulmonary: Effort: Pulmonary effort is normal. Breath sounds: Normal breath sounds. Musculoskeletal: General: Normal range of motion. Right lower leg: No edema. Left lower leg: No edema. Neurological: General: No focal deficit present. Mental Status: He is alert and oriented to person, place, and time. Psychiatric: Behavior: Behavior normal. Chest tube output: serosanguinous, airleak: No, suction: -20mmHg Access: central line, swan and peripheral IV Recent Labs Lab Units 05/06/21 0332 05/05/21 1204 05/05/21 0419 WBC K/cumm 14.6* 13.5* 13.2* HEMOGLOBIN g/dL 9.2* 9.8* 10.7* HEMATOCRIT % 27.9* 27.7* 30.4* PLATELETS K/cumm 204 193 191 Recent Labs Lab Units 05/06/21 0332 05/05/21 1605 05/05/21 1204 SODIUM mmol/L 142 141 141 POTASSIUM PLASMA mmol/L 3.7 3.7 3.6 CHLORIDE mmol/L 106 107 106 CO2 mmol/L 22 18* 20* BUN SERUM mg/dL 10 7* 7* CREATININE mg/dL 0.71* 0.50* 0.53* CALCIUM mg/dL 8.3* 8.2* 8.3* Recent Labs Lab Units 05/05/21 0021 05/04/21 2135 05/04/21 0247 PROTIME (PT) sec 14.4* 14.8* 13.4 INR 1.3* 1.3* 1.2 APTT sec 33 30 57* Recent Labs Lab Units 05/05/21 1605 05/05/21 1204 05/05/21 1015 PH ART 7.43 7.44 7.45 PCO2 ART mmHg 29* 30* 29* PO2 ART mmHg 82* 66* 75* BASE EXC ART mmol/L -4 -3 -4 Drips: dobutamine 5 mcg/kg/min Imaging: Today's CXR bilateral pulm edema with REKHA infiltrate. Assessment and Plan: 60 y.o. 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 Keep PAC. PRN hydral for HTN. ASA, statin, plavix. Pulm: Wean O2 as tolerated GI: CLD Renal: Lasix TID ID: Cont cefepime D/L/T: Keep CT, PAC. DC CBI today. Prophylaxis: Lovenox Dispo: CVU Laly Lopes MD Cardiothoracic Surgery [facility] Cosigned by Rhina Granados MD at 05/08/2021 1:57 PM STAFF FORESTER F FORESTER F FORESTER * Blue Cooley Jr., MD - 05/05/2021 2:18 PM CST Daily Progress SUBJECTIVE: Mr. Alvarado is day 1 status post 4 vessel bypass surgery. He is currently sedated and on BiPAP. Condition reviewed with the patient's bedside RN. He apparently had some runs of ventricular tachycardia with hypotension overnight. Presently his rhythm shows atrial fibrillation which occurred started at11:00 a.m. this morning. OBJECTIVE: Vitals: 05/05/21 1315 05/05/21 1330 05/05/21 1345 05/05/21 1400 BP: BP Location: Patient Position: Pulse: 90 90 90 90 Resp: 26 23 27 22 Temp: TempSrc: SpO2: (!) 84% 96% 96% 97% Weight: Height: Intake/Output Summary (Last 24 hours) at 05/05/2021 1418 Last data filed at 05/05/2021 1400 Gross per 24 hour Intake 8672 ml Output 8470 ml Net 202 ml Scheduled Medications Medication Dose Route Frequency ??? albuterol 2.5 mg /3 mL (0.083 %) nebulizer solution 2.5 mg 2.5 mg nebulization Q4H LEAH (RT) ??? aspirin chewable tablet 324 mg 324 mg oral Daily ??? atorvastatin (LIPITOR) tablet 80 mg 80 mg oral Daily ??? cefepime (MAXIPIME) 1,000 mg in sodium chloride 0.9% 100 mL IVPB 1,000 mg intravenous Q8H ??? docusate sodium (COLACE) capsule 100 mg 100 mg oral BID Or ??? docusate (COLACE) 10 mg/mL oral liquid 100 mg 100 mg feeding tube BID ??? furosemide (LASIX) 10 mg/mL injection 40 mg 40 mg intravenous Q8H ??? lidocaine (LIDODERM) 5 % patch 2 patch 2 patch transdermal Daily ??? pantoprazole (PROTONIX) 4 mg/mL injection 40 mg 40 mg intravenous Daily ??? sodium chloride 0.9% flush 0.5-20 mL 0.5-20 mL intra-catheter Q8H LEAH ??? vancomycin 1500 mg/250 mL in sodium chloride 0.9% (premix) 1,500 mg 1,500 mg intravenous Q12H LABS: Recent Labs Lab Units 05/05/21 1204 WBC K/cumm 13.5* HEMOGLOBIN g/dL 9.8* HEMATOCRIT % 27.7* PLATELETS K/cumm 193 Recent Labs Lab Units 05/05/21 1207 05/05/21 1204 05/05/21 1114 05/04/21 0803 05/04/21 0247 SODIUM mmol/L -- 141 -- < > 131* POTASSIUM PLASMA mmol/L -- 3.6 -- < > 4.0 CHLORIDE mmol/L -- 106 -- < > 100 CO2 mmol/L -- 20* -- < > 20* ANIONGAP mmol/L -- 15 -- < > 11 GLUCOSE mg/dL -- 163 -- < > 231* POC GLUCOSE MONITOR mg/dL 137 -- < > < > -- BUN SERUM mg/dL -- 7* -- < > 7* CREATININE mg/dL -- 0.53* -- < > 0.58* CALCIUM mg/dL -- 8.3* -- < > 8.5 ALBUMIN g/dL -- -- -- -- 3.1* ALK PHOS Units/L -- -- -- -- 69 ALT Units/L -- -- -- -- 18 AST Units/L -- -- -- -- 50 BILIRUBIN TOTAL mg/dL -- -- -- -- 0.4 < > = values in this interval not displayed. Recent Labs Lab Units 05/02/21 0032 CHOLESTEROL mg/dL 139 TRIGLYCERIDES mg/dL 105 HDL mg/dL 33* No results found for: BNP No results found for: TROPONINI Exam General: Sedated on BiPAP Neuro: Sedated HEENT: Unremarkable Neck: There are no carotid bruits. Lungs: symmetric, unlabored, clear to auscultation bilaterally Heart: S1,S2, regular rate & rhythm, no murmurs, rubs, or gallops Abdomen: soft, non-tender, non-distended, bowel sounds present Extremities: no LE edema, palpable peripheral pulses BL ASSESSMENT/PLAN: 1. Coronary artery disease: Patient presented to [facility] with an acute STEMI. Catheterization revealed multivessel disease. Patient underwent four-vessel bypass yesterday. He bypass consisted of a MAE to the LAD, sequential saphenous vein graft to diagonal and obtuse marginal and a vein graft to the PDA. Currently requiring pressors at low dose. Continue per CTS. 2. Nonsustained ventricular tachycardia: Apparently postoperatively the patient has had some runs of ventricular tachycardia requiring amiodarone. Amiodarone resulted in bradycardia and has subsequently been stopped. Currently is in a paced rhythm. 3. Diabetes mellitus: Continue current care 4. COPD: Currently on BiPAP. 5. Dyslipidemia: Continue atorvastatin. 6. PAD: Stable 7. Recent bladder tumor removal: He has some clots in his urine, is currently receiving bladder irrigation. Urology is following. Blue Cooley Jr., MD [facility] 05/05/2021 2:18 PM F FORESTER * Elizabeth Adan NP - 05/05/2021 1:37 PM CST General Medicine Daily Progress Reason for hospitalization: STEMI- status post coronary artery bypass graft x4 left internal mammary artery takedown, right saphenous vein and endo harvest cardiopulmonary bypass Subjective: Status post CABG on 05/04 2021, self extubated this morning on OptiFlow o2 ; Levophed discontinued on dobutamine, sedated with Precedex, lethargic, continues on wrist restraint; balloon pump in placed; hematuria appears resolving on continues bladder irrigation Objective: Vitals: 05/05/21 1230 05/05/21 1245 05/05/21 1300 05/05/21 1315 BP: BP Location: Patient Position: Pulse: 90 90 90 90 Resp: 26 26 24 26 Temp: TempSrc: SpO2: 94% 94% 95% (!) 84% Weight: Height: I/O last 2 completed shifts: In: 9452 [P.O.:120; I.V.:5596; Blood:2736; IV Piggyback:1000] Out: 2685 [Other:1700; Chest Tube:1025] I/O this shift: In: - Out: 3125 [Urine:2750; Chest Tube:375] Medications: Scheduled Medications Medication Dose Route Frequency ??? albuterol 2.5 mg /3 mL (0.083 %) nebulizer solution 2.5 mg 2.5 mg nebulization Q4H LEAH (RT) ??? aspirin chewable tablet 324 mg 324 mg oral Daily ??? atorvastatin (LIPITOR) tablet 80 mg 80 mg oral Daily ??? cefepime (MAXIPIME) 1,000 mg in sodium chloride 0.9% 100 mL IVPB 1,000 mg intravenous Q8H ??? docusate sodium (COLACE) capsule 100 mg 100 mg oral BID Or ??? docusate (COLACE) 10 mg/mL oral liquid 100 mg 100 mg feeding tube BID ??? furosemide (LASIX) 10 mg/mL injection 40 mg 40 mg intravenous Q8H ??? lidocaine (LIDODERM) 5 % patch 2 patch 2 patch transdermal Daily ??? pantoprazole (PROTONIX) 4 mg/mL injection 40 mg 40 mg intravenous Daily ??? sodium chloride 0.9% flush 0.5-20 mL 0.5-20 mL intra-catheter Q8H LEAH ??? vancomycin 1500 mg/250 mL in sodium chloride 0.9% (premix) 1,500 mg 1,500 mg intravenous Q12H Physical Exam: Gen: 60-year-old male on OptiFlow O2, on wrist restraints Neuro: lethargic Pulmonary: Diminished to ausculation; Cardiovascular: Irregular; chest incision ; chest tube ; GI: abdomen soft, non-tender; positive BS Musculoskeletal: r groin dressing IABP Skin: No decubitus ulcers - osorio - 3 way; Slight pink urine Labs: Labs reviewed Recent Results (from the past 24 hour(s)) POC Blood Gas and Chemistries, Arterial - Collection Time: 05/04/21 2:21 PM Result Value Ref Range pH, Art POC 7.30 (L) 7.35 - 7.45 pCO2, Art POC 43 35 - 45 mmHg pO2, Art POC 238 (H) 83 - 108 mmHg Na, POC 133 (L) 135 - 145 mmol/L K POC 3.7 3.3 - 4.9 mmol/L Ionized Ca, POC 4.58 (L) 4.60 - 5.20 mg/dL Glucose, POC 145 70 - 199 mg/dL Lactate, POC 0.7 0.7 - 2.0 mmol/L SO2 (joelle) arterial 98 (H) 90 - 95 % Total CO2, Art POC 22 21 - 30 mmol/L BE, art, POC -5 mmol/L HCO3, Art POC 21 20 - 30 mmol/L Hct, POC 25.0 (L) 38.9 - 50.3 % Total Hb, POC 8.3 (L) 13.0 - 17.5 g/dL Prepare plasma: 2 Units Collection Time: 05/04/21 3:25 PM Result Value Ref Range Product code L2281Y14 Unit Number [id number] Product Blood Type APOS Dispense Status PRESUMED TRANSFUSED Product code [id number] Unit Number [id number] Product Blood Type APOS Dispense Status PRESUMED TRANSFUSED POC Blood Gas and Chemistries, Arterial - Collection Time: 05/04/21 3:30 PM Result Value Ref Range pH, Art POC 7.29 (L) 7.35 - 7.45 pCO2, Art POC 45 35 - 45 mmHg pO2, Art POC 164 (H) 83 - 108 mmHg Na, POC 132 (L) 135 - 145 mmol/L K POC 3.7 3.3 - 4.9 mmol/L Ionized Ca, POC 4.68 4.60 - 5.20 mg/dL Glucose, POC 210 (H) 70 - 199 mg/dL Lactate, POC 0.5 (L) 0.7 - 2.0 mmol/L SO2 (joelle) arterial 99 (H) 90 - 95 % Total CO2, Art POC 23 21 - 30 mmol/L BE, art, POC -5 mmol/L HCO3, Art POC 21 20 - 30 mmol/L Hct, POC 26.0 (L) 38.9 - 50.3 % Total Hb, POC 8.5 (L) 13.0 - 17.5 g/dL POC Blood Gas and Chemistries, Arterial - Collection Time: 05/04/21 4:14 PM Result Value Ref Range pH, Art POC 7.33 (L) 7.35 - 7.45 pCO2, Art POC 40 35 - 45 mmHg pO2, Art POC 218 (H) 83 - 108 mmHg Na, POC 130 (L) 135 - 145 mmol/L K POC 4.3 3.3 - 4.9 mmol/L Ionized Ca, POC 4.30 (L) 4.60 - 5.20 mg/dL Glucose, POC 204 (H) 70 - 199 mg/dL Lactate, POC 0.6 (L) 0.7 - 2.0 mmol/L SO2 (joelle) arterial 99 (H) 90 - 95 % Total CO2, Art POC 22 21 - 30 mmol/L BE, art, POC -4 mmol/L HCO3, Art POC 22 20 - 30 mmol/L Hct, POC 20.0 (L) 38.9 - 50.3 % Total Hb, POC 6.5 (L) 13.0 - 17.5 g/dL POC Blood Gas and Chemistries, Arterial - Collection Time: 05/04/21 5:05 PM Result Value Ref Range pH, Art POC 7.34 (L) 7.35 - 7.45 pCO2, Art POC 39 35 - 45 mmHg pO2, Art POC 214 (H) 83 - 108 mmHg Na, POC 132 (L) 135 - 145 mmol/L K POC 4.2 3.3 - 4.9 mmol/L Ionized Ca, POC 4.31 (L) 4.60 - 5.20 mg/dL Glucose, POC 217 (H) 70 - 199 mg/dL Lactate, POC 0.8 0.7 - 2.0 mmol/L SO2 (joelle) arterial 100 (H) 90 - 95 % Total CO2, Art POC 22 21 - 30 mmol/L BE, art, POC -4 mmol/L HCO3, Art POC 22 20 - 30 mmol/L Hct, POC 22.0 (L) 38.9 - 50.3 % Total Hb, POC 7.2 (L) 13.0 - 17.5 g/dL Prepare RBC: 4 Units Collection Time: 05/04/21 5:43 PM Result Value Ref Range Product code [id number] Unit Number [id number] Product Blood Type APOS Dispense Status CROSSMATCHED Product code [id number] Unit Number [id number] Product Blood Type APOS Dispense Status CROSSMATCHED Product code [id number] Unit Number [id number] Product Blood Type APOS Dispense Status CROSSMATCHED Product code [id number] Unit Number [id number] Product Blood Type APOS Dispense Status CROSSMATCHED POC Blood Gas and Chemistries, Arterial - Collection Time: 05/04/21 5:43 PM Result Value Ref Range pH, Art POC 7.37 7.35 - 7.45 pCO2, Art POC 36 35 - 45 mmHg pO2, Art POC 215 (H) 83 - 108 mmHg Na, POC 133 (L) 135 - 145 mmol/L K POC 4.3 3.3 - 4.9 mmol/L Ionized Ca, POC 4.16 (L) 4.60 - 5.20 mg/dL Glucose, POC 199 70 - 199 mg/dL Lactate, POC 0.7 0.7 - 2.0 mmol/L SO2 (joelle) arterial 100 (H) 90 - 95 % Total CO2, Art POC 22 21 - 30 mmol/L BE, art, POC -4 mmol/L HCO3, Art POC 22 20 - 30 mmol/L Hct, POC 21.0 (L) 38.9 - 50.3 % Total Hb, POC 6.9 (L) 13.0 - 17.5 g/dL Platelet count Collection Time: 05/04/21 5:53 PM Result Value Ref Range Plt 230 150 - 400 K/cumm POC Blood Gas and Chemistries, Arterial - Collection Time: 05/04/21 6:12 PM Result Value Ref Range pH, Art POC 7.36 7.35 - 7.45 pCO2, Art POC 42 35 - 45 mmHg pO2, Art POC 228 (H) 83 - 108 mmHg Na, POC 134 (L) 135 - 145 mmol/L K POC 5.3 (H) 3.3 - 4.9 mmol/L Ionized Ca, POC 4.20 (L) 4.60 - 5.20 mg/dL Glucose, POC 208 (H) 70 - 199 mg/dL Lactate, POC 1.4 0.7 - 2.0 mmol/L SO2 (joelle) arterial 98 (H) 90 - 95 % Total CO2, Art POC 25 21 - 30 mmol/L BE, art, POC -2 mmol/L HCO3, Art POC 24 20 - 30 mmol/L Hct, POC 25.0 (L) 38.9 - 50.3 % Total Hb, POC 8.2 (L) 13.0 - 17.5 g/dL POC Blood Gas and Chemistries, Arterial - Collection Time: 05/04/21 6:53 PM Result Value Ref Range pH, Art POC 7.34 (L) 7.35 - 7.45 pCO2, Art POC 41 35 - 45 mmHg pO2, Art POC 172 (H) 83 - 108 mmHg Na, POC 136 135 - 145 mmol/L K POC 3.8 3.3 - 4.9 mmol/L Ionized Ca, POC 3.88 (L) 4.60 - 5.20 mg/dL Glucose, POC 211 (H) 70 - 199 mg/dL Lactate, POC 1.2 0.7 - 2.0 mmol/L SO2 (joelle) arterial 99 (H) 90 - 95 % Total CO2, Art POC 23 21 - 30 mmol/L BE, art, POC -4 mmol/L HCO3, Art POC 22 20 - 30 mmol/L Hct, POC 21.0 (L) 38.9 - 50.3 % Total Hb, POC 6.9 (L) 13.0 - 17.5 g/dL Prepare cryoprecipitate (pooled units): 2 Units Collection Time: 05/04/21 6:54 PM Result Value Ref Range Product code [id number] Unit Number [id number] Product Blood Type OPOS Dispense Status PRESUMED TRANSFUSED Product code [id number] Unit Number [id number] Product Blood Type APOS Dispense Status PRESUMED TRANSFUSED POC Blood Gas and Chemistries, Arterial - Collection Time: 05/04/21 7:28 PM Result Value Ref Range pH, Art POC 7.32 (L) 7.35 - 7.45 pCO2, Art POC 42 35 - 45 mmHg pO2, Art POC 102 83 - 108 mmHg Na, POC 136 135 - 145 mmol/L K POC 3.7 3.3 - 4.9 mmol/L Ionized Ca, POC 5.10 4.60 - 5.20 mg/dL Glucose, POC 199 70 - 199 mg/dL Lactate, POC 1.0 0.7 - 2.0 mmol/L SO2 (joelle) arterial 98 (H) 90 - 95 % Total CO2, Art POC 23 21 - 30 mmol/L BE, art, POC -4 mmol/L HCO3, Art POC 22 20 - 30 mmol/L Hct, POC 23.0 (L) 38.9 - 50.3 % Total Hb, POC 7.8 (L) 13.0 - 17.5 g/dL POCT glucose Collection Time: 05/04/21 8:22 PM Result Value Ref Range Glucose, POC 203 (H) 70 - 199 mg/dL Calcium, ionized Collection Time: 05/04/21 9:34 PM Result Value Ref Range Ca, ionized, bld 4.12 (L) 4.60 - 5.20 mg/dL Ca, ionized, bld, calc 3.97 (L) 4.60 - 5.20 mg/dL Blood gas, arterial Collection Time: 05/04/21 9:34 PM Result Value Ref Range pH, Art 7.33 (L) 7.35 - 7.45 PCO2, Arterial 48 (H) 35 - 45 mmHg PO2, Arterial 74 (L) 83 - 108 mmHg HCO3 Art (Calculated) 24 20 - 30 mmol/L BE, art 0 mmol/L O2 Sat Art (Measured) 94 90 - 95 % Basic metabolic panel Collection Time: 05/04/21 9:35 PM Result Value Ref Range Sodium 141 135 - 145 mmol/L Potassium, pl 3.3 3.3 - 4.9 mmol/L Chloride 106 97 - 110 mmol/L CO2 26 22 - 32 mmol/L Anion gap 9 2 - 15 mmol/L BUN 7 (L) 8 - 25 mg/dL Creatinine 0.56 (L) 0.80 - 1.30 mg/dL Glucose 165 70 - 199 mg/dL Calcium 7.7 (L) 8.5 - 10.3 mg/dL Magnesium Collection Time: 05/04/21 9:35 PM Result Value Ref Range Magnesium 2.4 1.4 - 2.5 mg/dL CBC without differential Collection Time: 05/04/21 9:35 PM Result Value Ref Range WBC 19.0 (H) 3.8 - 9.9 K/cumm Hgb 7.2 (L) 13.0 - 17.5 g/dL Hct 21.2 (L) 38.9 - 50.3 % Plt 215 150 - 400 K/cumm MPV 10.9 9.1 - 12.3 fL RBC 2.34 (L) 4.30 - 5.80 M/cumm MCV 90.6 81.3 - 96.4 fL MCH 30.8 27.1 - 33.3 pg MCHC 34.0 32.3 - 35.7 g/dL RDW CV 13.9 11.1 - 14.9 % RDW SD 46.4 35.7 - 48.1 fL NRBC abs 0.00 0.00 - 0.01 K/cumm Protime-INR Collection Time: 05/04/21 9:35 PM Result Value Ref Range PT 14.8 (H) 9.5 - 13.6 sec INR 1.3 (H) 0.9 - 1.2 aPTT Collection Time: 05/04/21 9:35 PM Result Value Ref Range aPTT 30 27 - 37 sec eGFR Collection Time: 05/04/21 9:35 PM Result Value Ref Range eGFR 113 mL/min/1.73 m2 POCT glucose Collection Time: 05/04/21 9:39 PM Result Value Ref Range Glucose, POC 139 70 - 199 mg/dL Prepare RBC: 1 Units Collection Time: 05/04/21 9:56 PM Result Value Ref Range Product code [id number] Unit Number [id number] Product Blood Type APOS Dispense Status PRESUMED TRANSFUSED POCT glucose Collection Time: 05/04/21 10:59 PM Result Value Ref Range Glucose, POC 122 70 - 199 mg/dL Blood gas, arterial Collection Time: 05/04/21 11:49 PM Result Value Ref Range pH, Art 7.42 7.35 - 7.45 PCO2, Arterial 37 35 - 45 mmHg PO2, Arterial 64 (L) 83 - 108 mmHg HCO3 Art (Calculated) 24 20 - 30 mmol/L BE, art 0 mmol/L O2 Sat Art (Measured) 92 90 - 95 % Calcium, ionized Collection Time: 05/04/21 11:49 PM Result Value Ref Range Ca, ionized, bld 4.48 (L) 4.60 - 5.20 mg/dL Ca, ionized, bld, calc 4.53 (L) 4.60 - 5.20 mg/dL POCT glucose Collection Time: 05/04/21 11:53 PM Result Value Ref Range Glucose, POC 96 70 - 199 mg/dL Basic metabolic panel Collection Time: 05/05/21 12:21 AM Result Value Ref Range Sodium 142 135 - 145 mmol/L Potassium, pl 3.9 3.3 - 4.9 mmol/L Chloride 109 97 - 110 mmol/L CO2 24 22 - 32 mmol/L Anion gap 9 2 - 15 mmol/L BUN 7 (L) 8 - 25 mg/dL Creatinine 0.51 (L) 0.80 - 1.30 mg/dL Glucose 97 70 - 199 mg/dL Calcium 8.4 (L) 8.5 - 10.3 mg/dL CBC without differential Collection Time: 05/05/21 12:21 AM Result Value Ref Range WBC 14.3 (H) 3.8 - 9.9 K/cumm Hgb 7.6 (L) 13.0 - 17.5 g/dL Hct 22.6 (L) 38.9 - 50.3 % Plt 206 150 - 400 K/cumm MPV 11.4 9.1 - 12.3 fL RBC 2.48 (L) 4.30 - 5.80 M/cumm MCV 91.1 81.3 - 96.4 fL MCH 30.6 27.1 - 33.3 pg MCHC 33.6 32.3 - 35.7 g/dL RDW CV 14.1 11.1 - 14.9 % RDW SD 46.9 35.7 - 48.1 fL NRBC abs 0.00 0.00 - 0.01 K/cumm aPTT Collection Time: 05/05/21 12:21 AM Result Value Ref Range aPTT 33 27 - 37 sec Protime-INR Collection Time: 05/05/21 12:21 AM Result Value Ref Range PT 14.4 (H) 9.5 - 13.6 sec INR 1.3 (H) 0.9 - 1.2 eGFR Collection Time: 05/05/21 12:21 AM Result Value Ref Range eGFR 118 mL/min/1.73 m2 POCT glucose Collection Time: 05/05/21 1:07 AM Result Value Ref Range Glucose, POC 103 70 - 199 mg/dL Blood gas, arterial Collection Time: 05/05/21 2:25 AM Result Value Ref Range pH, Art 7.43 7.35 - 7.45 PCO2, Arterial 34 (L) 35 - 45 mmHg PO2, Arterial 58 (L) 83 - 108 mmHg HCO3 Art (Calculated) 23 20 - 30 mmol/L BE, art -2 mmol/L O2 Sat Art (Measured) 91 90 - 95 % Calcium, ionized Collection Time: 05/05/21 2:25 AM Result Value Ref Range Ca, ionized, bld 4.72 4.60 - 5.20 mg/dL Ca, ionized, bld, calc 4.80 4.60 - 5.20 mg/dL Lactate Collection Time: 05/05/21 2:25 AM Result Value Ref Range Lactate 1.6 0.7 - 2.0 mmol/L Basic metabolic panel Collection Time: 05/05/21 2:25 AM Result Value Ref Range Sodium 142 135 - 145 mmol/L Potassium, pl 4.0 3.3 - 4.9 mmol/L Chloride 110 97 - 110 mmol/L CO2 22 22 - 32 mmol/L Anion gap 10 2 - 15 mmol/L BUN 7 (L) 8 - 25 mg/dL Creatinine 0.64 (L) 0.80 - 1.30 mg/dL Glucose 135 70 - 199 mg/dL Calcium 8.2 (L) 8.5 - 10.3 mg/dL Magnesium Collection Time: 05/05/21 2:25 AM Result Value Ref Range Magnesium 2.6 (H) 1.4 - 2.5 mg/dL eGFR Collection Time: 05/05/21 2:25 AM Result Value Ref Range eGFR 107 mL/min/1.73 m2 Oxyhemoglobin, pulmonary artery Collection Time: 05/05/21 2:32 AM Result Value Ref Range Oxyhemoglobin, PA 40.0 % POCT glucose Collection Time: 05/05/21 2:55 AM Result Value Ref Range Glucose, POC 141 70 - 199 mg/dL POCT glucose Collection Time: 05/05/21 3:59 AM Result Value Ref Range Glucose, POC 122 70 - 199 mg/dL Oxyhemoglobin, pulmonary artery Collection Time: 05/05/21 4:08 AM Result Value Ref Range Oxyhemoglobin, PA 58.8 % Basic metabolic panel Collection Time: 05/05/21 4:19 AM Result Value Ref Range Sodium 143 135 - 145 mmol/L Potassium, pl 4.4 3.3 - 4.9 mmol/L Chloride 111 (H) 97 - 110 mmol/L CO2 21 (L) 22 - 32 mmol/L Anion gap 11 2 - 15 mmol/L BUN 7 (L) 8 - 25 mg/dL Creatinine 0.52 (L) 0.80 - 1.30 mg/dL Glucose 126 70 - 199 mg/dL Calcium 7.0 (L) 8.5 - 10.3 mg/dL Phosphorus Collection Time: 05/05/21 4:19 AM Result Value Ref Range Phosphorus, pl 3.4 2.3 - 4.5 mg/dL Magnesium Collection Time: 05/05/21 4:19 AM Result Value Ref Range Magnesium 1.9 1.4 - 2.5 mg/dL CBC with auto differential Collection Time: 05/05/21 4:19 AM Result Value Ref Range WBC 13.2 (H) 3.8 - 9.9 K/cumm Hgb 10.7 (L) 13.0 - 17.5 g/dL Hct 30.4 (L) 38.9 - 50.3 % Plt 191 150 - 400 K/cumm MPV 11.2 9.1 - 12.3 fL RBC 3.46 (L) 4.30 - 5.80 M/cumm MCV 87.9 81.3 - 96.4 fL MCH 30.9 27.1 - 33.3 pg MCHC 35.2 32.3 - 35.7 g/dL RDW CV 14.1 11.1 - 14.9 % RDW SD 44.9 35.7 - 48.1 fL NRBC abs 0.00 0.00 - 0.01 K/cumm Differential, auto Collection Time: 05/05/21 4:19 AM Result Value Ref Range Neutrophil abs 11.1 (H) 1.7 - 6.5 K/cumm Imm gran abs 0.1 0.0 - 0.1 K/cumm Lymphocyte abs 0.4 (L) 0.8 - 3.3 K/cumm Monocyte abs 1.5 (H) 0.2 - 0.8 K/cumm Eosinophil abs 0.0 0.0 - 0.5 K/cumm Basophil abs 0.1 0.0 - 0.1 K/cumm Neutrophil pct 84.2 % Imm gran pct 0.9 % Lymphocyte pct 3.1 % Monocyte pct 11.2 % Eosinophil pct 0.2 % Basophil pct 0.4 % Manual Differential Collection Time: 05/05/21 4:19 AM Result Value Ref Range Differential Auto RBC morphology Normal Platelet estimate Adequate eGFR Collection Time: 05/05/21 4:19 AM Result Value Ref Range eGFR 117 mL/min/1.73 m2 Blood gas, arterial Collection Time: 05/05/21 4:41 AM Result Value Ref Range pH, Art 7.42 7.35 - 7.45 PCO2, Arterial 34 (L) 35 - 45 mmHg PO2, Arterial 80 (L) 83 - 108 mmHg HCO3 Art (Calculated) 23 20 - 30 mmol/L BE, art -2 mmol/L O2 Sat Art (Measured) 96 (H) 90 - 95 % POCT glucose Collection Time: 05/05/21 5:07 AM Result Value Ref Range Glucose, POC 123 70 - 199 mg/dL POCT glucose Collection Time: 05/05/21 6:45 AM Result Value Ref Range Glucose, POC 111 70 - 199 mg/dL Blood gas, arterial Collection Time: 05/05/21 6:50 AM Result Value Ref Range pH, Art 7.41 7.35 - 7.45 PCO2, Arterial 35 35 - 45 mmHg PO2, Arterial 72 (L) 83 - 108 mmHg HCO3 Art (Calculated) 23 20 - 30 mmol/L BE, art -2 mmol/L O2 Sat Art (Measured) 95 90 - 95 % POCT glucose Collection Time: 05/05/21 7:56 AM Result Value Ref Range Glucose, POC 95 70 - 199 mg/dL POCT glucose Collection Time: 05/05/21 9:09 AM Result Value Ref Range Glucose, POC 119 70 - 199 mg/dL Blood gas, arterial Collection Time: 05/05/21 10:15 AM Result Value Ref Range pH, Art 7.45 7.35 - 7.45 PCO2, Arterial 29 (L) 35 - 45 mmHg PO2, Arterial 75 (L) 83 - 108 mmHg HCO3 Art (Calculated) 22 20 - 30 mmol/L BE, art -4 mmol/L O2 Sat Art (Measured) 96 (H) 90 - 95 % POCT glucose Collection Time: 05/05/21 10:19 AM Result Value Ref Range Glucose, POC 136 70 - 199 mg/dL POCT glucose Collection Time: 05/05/21 11:14 AM Result Value Ref Range Glucose, POC 119 70 - 199 mg/dL CBC without differential Collection Time: 05/05/21 12:04 PM Result Value Ref Range WBC 13.5 (H) 3.8 - 9.9 K/cumm Hgb 9.8 (L) 13.0 - 17.5 g/dL Hct 27.7 (L) 38.9 - 50.3 % Plt 193 150 - 400 K/cumm MPV 11.5 9.1 - 12.3 fL RBC 3.19 (L) 4.30 - 5.80 M/cumm MCV 86.8 81.3 - 96.4 fL MCH 30.7 27.1 - 33.3 pg MCHC 35.4 32.3 - 35.7 g/dL RDW CV 14.3 11.1 - 14.9 % RDW SD 44.9 35.7 - 48.1 fL NRBC abs 0.00 0.00 - 0.01 K/cumm Magnesium Collection Time: 05/05/21 12:04 PM Result Value Ref Range Magnesium 2.1 1.4 - 2.5 mg/dL Basic metabolic panel Collection Time: 05/05/21 12:04 PM Result Value Ref Range Sodium 141 135 - 145 mmol/L Potassium, pl 3.6 3.3 - 4.9 mmol/L Chloride 106 97 - 110 mmol/L CO2 20 (L) 22 - 32 mmol/L Anion gap 15 2 - 15 mmol/L BUN 7 (L) 8 - 25 mg/dL Creatinine 0.53 (L) 0.80 - 1.30 mg/dL Glucose 163 70 - 199 mg/dL Calcium 8.3 (L) 8.5 - 10.3 mg/dL Blood gas, arterial Collection Time: 05/05/21 12:04 PM Result Value Ref Range pH, Art 7.44 7.35 - 7.45 PCO2, Arterial 30 (L) 35 - 45 mmHg PO2, Arterial 66 (L) 83 - 108 mmHg HCO3 Art (Calculated) 22 20 - 30 mmol/L BE, art -3 mmol/L O2 Sat Art (Measured) 94 90 - 95 % Calcium, ionized Collection Time: 05/05/21 12:04 PM Result Value Ref Range Ca, ionized, bld 4.63 4.60 - 5.20 mg/dL Ca, ionized, bld, calc 4.74 4.60 - 5.20 mg/dL eGFR Collection Time: 05/05/21 12:04 PM Result Value Ref Range eGFR 116 mL/min/1.73 m2 POCT glucose Collection Time: 05/05/21 12:07 PM Result Value Ref Range Glucose, POC 137 70 - 199 mg/dL Cardiac cath cardiac catheterization on 05/01/2021 with PTCA of LAD done using 3.0, 3.5 balloon and of diagnol using 1.5, 2.0, 2.5 balloons and flow restored. IABP on 05/01/2021. Assessment & Plan: Acute MT with CAD s/p CABG x4; - cardio/ CTS consults reviewed ; on IABP 1:1 ; cont on dobutamine; cont asa and statin Shock - cardiogenic ; post op Cabg - s/p fluid resuscitation ; levophed weaned off; cont on dobutamine - court monitor ; BB held V fib - briefly on 05/03 - s/p amiodarone ; now on dobutamine Gross Hematuria - in a pt with hx of cystoscopy, clot evacuation and transurethral resection of bladder tumor at [facility] ; urology consult ; s/p [address]; continuousirrigation - resolving Acute resp failure - self ext 05/05/21 ; now on optiflow O2; wean O2 ; keep sats>90% ; IS when awake Lung infiltrates - pulm vascular congestion versus pneumonia; currently on Lasix and broad-spectrumantibiotics cefepime Hyperlipidemia. On statin. Type 2 diabetes. - on insulin IV for now ; accuchecks Acute blood loss anemia ; s/p PRBC transfusions in ICU and OR, transfuse for hemoglobin less than 8, CBC Tobacco use. Vitamin-D deficiency.- stable Prophylaxis. Protonix, TRELL Silver [facility] [phone] 05/05/2021 1:37 PM F FORESTER * Miranda Garza, DEEPIKA - 05/05/2021 11:33 AM CST CM Initial Assessment Interview Note Information Obtained From: Spouse Name: Geno Alvarado- spouse- [phone], patient designated managed care director (05/05/211130) Admission Source: from home with spouse Impression: recently extubated in the CVU/ICU. Normally axox4 and independent from home Plan Includes: return home at discharge Primary Source of Transportation: self and family Health Insurance Coverage: [employer]- spoke with spouse about insurance was OON for [facility] and what that means. Verbalized understanding. Prescription Coverage: yes Pharmacy: [facility] Primary Care Provider: Billie Roth- tamera at this time- instructed spouse to call number on [employer] card for assistance finding PCP in their area that take the insurance/ Prior to Admission: Primary Caregiver: Self Support System: Spouse/Significant Other Support system contact info (name, phone, availablity): Geno Alvarado- spouse- [phone], patient designated managed care director Home Care Services: No Durable Medical Equipment: None Living Arrangements: Spouse/significant other Type of Residence: Private residence (05/05/211130) Potential discharge needs include: HH services. - RN/PT/OT Dialysis: none Behavioral Health Services: Behavioral Health Services: No (05/05/211130) Patient expects to be Discharged to: Private residence, (05/05/211130) Additional Information: none Patient's Identified Problem/Goal Problem: Ensure acute medical [...] Collaboration with patient, MD, direct care nurse, Rehab Aide, Nurse Coordinator and other members of the health care team to assure needed interventions completed. 2. Return patient to optimal level of self-care post discharge. 3. Tobacco Sizer will follow for Discharge Planning - interventions as needed 4. Anticipated level of care at discharge 5. Planned Discharge Disposition Miranda Garza [employer] Tobacco Sizer [phone] F FORESTER * Marylu Dempsey, PT - 05/05/2021 9:49 AM CST Physical Therapy Physical Therapy on medical cancel. Patient currently on bedrest due to IABP. Patient was intubatedbut self extubated within the hour. CCP, RN, and RT present in room. Will attempt evaluation at later time when patient able to participate. Marylu Moreno, PT 05/05/21 9:52 AM F FORESTER * Nimesh Evans MD - 05/05/2021 9:45 AM CST Images from the original note were not included. Critical Care Medicine Daily Progress Team: SICU [place] Team Subjective Interval events: No issues overnight, chronic back pain better controlled on current pain regimen. Persisting hematuria but urine appears news reporter in color. Hemoglobin stable post transfusion. O2 sats98% on 2 L nasal cannula with normal work of breathing. Hemodynamically stable, IABP remains in place, right groin areas soft and dressing intact. Distal lower extremities pulses palpable ?? 05/02/2021: NAJMA. Only complaints are of back pain from lying in bed. No chest pain shortness of breath, orthopnea, abdominal pain, n/v/d. Plan for CABG on Tuesday. 05/04/21: Increased blood clot from osorio and obstruction with pain. 05/05/21: Brief asystole o/n w turning. Stable after. Self extubated in AM. ?? HPI Ms. Elias is a 60-year-old gentleman with a history of coronary artery disease status post multiple PCIs with stent placement. ??He awoke yesterday morning unable to void and was found to have hematuria for which she underwent what sounds to be a cystoscopy and a Osorio catheter was placed. ??He was discharged home and developed chest pain and shortness of breath. ??He presented to an outside hospital and was found to have EKG findings concerning for myocardial infarction. ??He was subsequentlytransferred to the cardiac catheterization lab here at [facility] where he underwent coronary angiography via right common femoral artery which demonstrated an LAD multiple stenosesand underwent PTCA of the LAD and diagonal. ??Left ventriculogram demonstrated moderate anteroapical hypokinesis. ??The case was discussed with Dr. Granados.?An intra-aortic balloon pump was placedvia the right common femoral access in demonstrates good augmentation on bedside exam. ??He was started on Integrilin and heparin drips and transferred to the ICU for planned CABG on Tuesday. ?? Currently the patient states his chest pain is resolved and he denies shortness of breath. ??His only complaint is some back pain which she states is chronic for him when he lays down. ??He does not usually take anything for this at home. ??He denies any nausea, shortness of breath, or change in bowel habits. Scheduled Medications: albuterol, 2.5 mg, nebulization, Q4H LEAH (RT) aspirin, 324 mg, oral, Daily atorvastatin, 80 mg, oral, Daily cefepime, 1,000 mg, intravenous, Q8H docusate sodium, 100 mg, oral, BID Or docusate, 100 mg, feeding tube, BID furosemide, 40 mg, intravenous, Q8H lidocaine, 2 patch, transdermal, Daily pantoprazole, 40 mg, intravenous, Daily sodium chloride 0.9%, 0.5-20 mL, intra-catheter, Q8H LEAH vancomycin, 1,500 mg, intravenous, Q12H Continuous Medications: dexmedeTOMIDine, 0-1.5 mcg/kg/hr, Last Rate: 1 mcg/kg/hr (05/05/21899) DOButamine, 5 mcg/kg/min, Last Rate: 5 mcg/kg/min (05/05/21899) insulin regular, 0-30 Units/hr, Last Rate: 3.3 Units/hr (05/05/21 0655) norepinephrine, 0-2 mcg/kg/min, Last Rate: 0.06 mcg/kg/min (05/05/21899) propofol, 0-50 mcg/kg/min, Last Rate: 10 mcg/kg/min (05/05/21899) sodium chloride 0.9 %, 3,000 mL sodium chloride 0.9%, 20 mL/hr, Last Rate: 20 mL/hr (05/04/21 2309) sodium chloride 0.9%, 3-12 mL/hr PRN Medications: ??? acetaminophen ??? albumin ??? dextrose OR dextrose ??? fentaNYL ??? glucagon ??? ondansetron ??? oxyCODONE ??? potassium chloride ??? prochlorperazine Objective Vitals: Most Recent: Vitals: 05/05/21 0930 BP: Pulse: 90 Resp: (!) 33 Temp: SpO2: 94% 24hr Min/Max: Pulse Min: 46 Max: 90 BP Min: 72/45 Max: 123/67 Resp Min: 12 Max: 36 SpO2 Min: 83 % Max: 100 % LDA: Arterial Sheath 8 Fr. Right Femoral (Active) Placement Date/Time: 05/01/21 1730 Catheter Time Out Checklist Completed: Yes Hand Hygiene Performed: Yes Site Prep: Alcohol;Chlorhexidine Site Prep Agent has Completely Dried Before Insertion: Yes All 5 Sterile Barriers or Appropriate Barriers ... Number of days: 2 IABP 8.0 Fr. 50 mL (Active) Placement Date/Time: 05/01/21 1834 Insertion Site: Right femoral Sutured: Yes Catheter/Balloon Size: 8.0 Fr. Balloon/ Catheter Volume: 50 mL Verification by X-ray: Yes Number of days: 2 Urethral Catheter Straight-tip (Active) Placement Date: 04/30/21 Inserted by: inserted by urologist at [facility] Placed by External Staff?: Other hospital Catheter Type: Straight-tip Catheter Balloon Size: 10 mL Urine Returned: (c) Yes Number of days: 4 I/O: Date 05/04/21 07 - 05/05/21 0659 05/05/21 07 - 05/06/21 0659 Shift 3655-1236 6209-1738 24 Hour Total 1333-1941 7457-9546 24 Hour Total INTAKE P.O. 120 120 I.V.(mL/kg) 1180(12.9) 4416(48.4) 5596(61.3) Blood 850 1886 2736 IV Piggyback 1000 1000 Shift Total(mL/kg) 2150(23.5) 7302(80) 9452(103.5) OUTPUT Urine(mL/kg/hr) -1890(-1.7) 1850(1.7) -40(-0) 1050 1050 Other 1700 1700 Chest Tube 1025 1025 Shift Total(mL/kg) -190(-2.1) 2875(31.5) 2685(29.4) 1050(11.5) 1050(11.5) NET 2347 2951 9300 -1050 -1050 Weight (kg) 91.3 91.3 91.3 91.3 91.3 91.3 Physical Exam: Gen: NAD HEENT: NC/AT, PERRLA, EOMI Neck: Supple, Trachea Midline, ETT in place CV: paced, Distal pulses intact, IABP 1:1 Pulm: diminished on left, NLR, drain tubes w ss o/p Abd: Soft, ttp : Osorio with hematuria and clots Ext: No edema noted Skin: Warm, Dry Neuro: follows, no focal deficits Lab/Radiology/Diagnostic Review: Laboratory review: Lab results in the last 24 hours: Recent Results (from the past 24 hour(s)) Urinalysis reflex to microscopic Collection Time: 05/04/21 10:13 AM Result Value Ref Range Color, ur Red (A) Yellow Clarity, ur Cloudy (A) Clear Specific gravity, ur 1.015 1.003 - 1.030 pH, urine 7.0 Protein, ur ql 3+ (A) Negative Glucose, ur ql 3+ (A) Negative Ketones, ur Trace Negative Bilirubin, ur Negative Negative Blood, ur 3+ (A) Negative Urobilinogen, ur <2.0 <2.0 mg/dL Nitrite, ur Negative Negative Leukocyte esterase, ur Negative Negative UA reflex comment Reflex to microscopic UA will be performed. Urinalysis, microscopic only Collection Time: 05/04/21 10:13 AM Result Value Ref Range WBC, ur 11-20 (A) 0 - 5 /HPF RBC, ur >50 (A) 0 - 2 /HPF POCT glucose Collection Time: 05/04/21 11:54 AM Result Value Ref Range Glucose, POC 171 70 - 199 mg/dL POC Blood Gas and Chemistries, Arterial - Collection Time: 05/04/21 2:21 PM Result Value Ref Range pH, Art POC 7.30 (L) 7.35 - 7.45 pCO2, Art POC 43 35 - 45 mmHg pO2, Art POC 238 (H) 83 - 108 mmHg Na, POC 133 (L) 135 - 145 mmol/L K POC 3.7 3.3 - 4.9 mmol/L Ionized Ca, POC 4.58 (L) 4.60 - 5.20 mg/dL Glucose, POC 145 70 - 199 mg/dL Lactate, POC 0.7 0.7 - 2.0 mmol/L SO2 (joelle) arterial 98 (H) 90 - 95 % Total CO2, Art POC 22 21 - 30 mmol/L BE, art, POC -5 mmol/L HCO3, Art POC 21 20 - 30 mmol/L Hct, POC 25.0 (L) 38.9 - 50.3 % Total Hb, POC 8.3 (L) 13.0 - 17.5 g/dL Prepare plasma: 2 Units Collection Time: 05/04/21 3:25 PM Result Value Ref Range Product code [id number] Unit Number [id number] Product Blood Type APOS Dispense Status PRESUMED TRANSFUSED Product code [id number] Unit Number [id number] Product Blood Type APOS Dispense Status PRESUMED TRANSFUSED POC Blood Gas and Chemistries, Arterial - Collection Time: 05/04/21 3:30 PM Result Value Ref Range pH, Art POC 7.29 (L) 7.35 - 7.45 pCO2, Art POC 45 35 - 45 mmHg pO2, Art POC 164 (H) 83 - 108 mmHg Na, POC 132 (L) 135 - 145 mmol/L K POC 3.7 3.3 - 4.9 mmol/L Ionized Ca, POC 4.68 4.60 - 5.20 mg/dL Glucose, POC 210 (H) 70 - 199 mg/dL Lactate, POC 0.5 (L) 0.7 - 2.0 mmol/L SO2 (joelle) arterial 99 (H) 90 - 95 % Total CO2, Art POC 23 21 - 30 mmol/L BE, art, POC -5 mmol/L HCO3, Art POC 21 20 - 30 mmol/L Hct, POC 26.0 (L) 38.9 - 50.3 % Total Hb, POC 8.5 (L) 13.0 - 17.5 g/dL POC Blood Gas and Chemistries, Arterial - Collection Time: 05/04/21 4:14 PM Result Value Ref Range pH, Art POC 7.33 (L) 7.35 - 7.45 pCO2, Art POC 40 35 - 45 mmHg pO2, Art POC 218 (H) 83 - 108 mmHg Na, POC 130 (L) 135 - 145 mmol/L K POC 4.3 3.3 - 4.9 mmol/L Ionized Ca, POC 4.30 (L) 4.60 - 5.20 mg/dL Glucose, POC 204 (H) 70 - 199 mg/dL Lactate, POC 0.6 (L) 0.7 - 2.0 mmol/L SO2 (joelle) arterial 99 (H) 90 - 95 % Total CO2, Art POC 22 21 - 30 mmol/L BE, art, POC -4 mmol/L HCO3, Art POC 22 20 - 30 mmol/L Hct, POC 20.0 (L) 38.9 - 50.3 % Total Hb, POC 6.5 (L) 13.0 - 17.5 g/dL POC Blood Gas and Chemistries, Arterial - Collection Time: 05/04/21 5:05 PM Result Value Ref Range pH, Art POC 7.34 (L) 7.35 - 7.45 pCO2, Art POC 39 35 - 45 mmHg pO2, Art POC 214 (H) 83 - 108 mmHg Na, POC 132 (L) 135 - 145 mmol/L K POC 4.2 3.3 - 4.9 mmol/L Ionized Ca, POC 4.31 (L) 4.60 - 5.20 mg/dL Glucose, POC 217 (H) 70 - 199 mg/dL Lactate, POC 0.8 0.7 - 2.0 mmol/L SO2 (joelle) arterial 100 (H) 90 - 95 % Total CO2, Art POC 22 21 - 30 mmol/L BE, art, POC -4 mmol/L HCO3, Art POC 22 20 - 30 mmol/L Hct, POC 22.0 (L) 38.9 - 50.3 % Total Hb, POC 7.2 (L) 13.0 - 17.5 g/dL Prepare RBC: 4 Units Collection Time: 05/04/21 5:43 PM Result Value Ref Range Product code [id number] Unit Number [id number] Product Blood Type APOS Dispense Status CROSSMATCHED Product code [id number] Unit Number [id number] Product Blood Type APOS Dispense Status CROSSMATCHED Product code [id number] Unit Number [id number] Product Blood Type APOS Dispense Status CROSSMATCHED Product code [id number] Unit Number [id number] Product Blood Type APOS Dispense Status CROSSMATCHED POC Blood Gas and Chemistries, Arterial - Collection Time: 05/04/21 5:43 PM Result Value Ref Range pH, Art POC 7.37 7.35 - 7.45 pCO2, Art POC 36 35 - 45 mmHg pO2, Art POC 215 (H) 83 - 108 mmHg Na, POC 133 (L) 135 - 145 mmol/L K POC 4.3 3.3 - 4.9 mmol/L Ionized Ca, POC 4.16 (L) 4.60 - 5.20 mg/dL Glucose, POC 199 70 - 199 mg/dL Lactate, POC 0.7 0.7 - 2.0 mmol/L SO2 (joelle) arterial 100 (H) 90 - 95 % Total CO2, Art POC 22 21 - 30 mmol/L BE, art, POC -4 mmol/L HCO3, Art POC 22 20 - 30 mmol/L Hct, POC 21.0 (L) 38.9 - 50.3 % Total Hb, POC 6.9 (L) 13.0 - 17.5 g/dL Platelet count Collection Time: 05/04/21 5:53 PM Result Value Ref Range Plt 230 150 - 400 K/cumm POC Blood Gas and Chemistries, Arterial - Collection Time: 05/04/21 6:12 PM Result Value Ref Range pH, Art POC 7.36 7.35 - 7.45 pCO2, Art POC 42 35 - 45 mmHg pO2, Art POC 228 (H) 83 - 108 mmHg Na, POC 134 (L) 135 - 145 mmol/L K POC 5.3 (H) 3.3 - 4.9 mmol/L Ionized Ca, POC 4.20 (L) 4.60 - 5.20 mg/dL Glucose, POC 208 (H) 70 - 199 mg/dL Lactate, POC 1.4 0.7 - 2.0 mmol/L SO2 (joelle) arterial 98 (H) 90 - 95 % Total CO2, Art POC 25 21 - 30 mmol/L BE, art, POC -2 mmol/L HCO3, Art POC 24 20 - 30 mmol/L Hct, POC 25.0 (L) 38.9 - 50.3 % Total Hb, POC 8.2 (L) 13.0 - 17.5 g/dL POC Blood Gas and Chemistries, Arterial - Collection Time: 05/04/21 6:53 PM Result Value Ref Range pH, Art POC 7.34 (L) 7.35 - 7.45 pCO2, Art POC 41 35 - 45 mmHg pO2, Art POC 172 (H) 83 - 108 mmHg Na, POC 136 135 - 145 mmol/L K POC 3.8 3.3 - 4.9 mmol/L Ionized Ca, POC 3.88 (L) 4.60 - 5.20 mg/dL Glucose, POC 211 (H) 70 - 199 mg/dL Lactate, POC 1.2 0.7 - 2.0 mmol/L SO2 (joelle) arterial 99 (H) 90 - 95 % Total CO2, Art POC 23 21 - 30 mmol/L BE, art, POC -4 mmol/L HCO3, Art POC 22 20 - 30 mmol/L Hct, POC 21.0 (L) 38.9 - 50.3 % Total Hb, POC 6.9 (L) 13.0 - 17.5 g/dL Prepare cryoprecipitate (pooled units): 2 Units Collection Time: 05/04/21 6:54 PM Result Value Ref Range Product code [id number] Unit Number [id number] Product Blood Type OPOS Dispense Status ISSUED Product code [id number] Unit Number [id number] Product Blood Type APOS Dispense Status ISSUED POC Blood Gas and Chemistries, Arterial - Collection Time: 05/04/21 7:28 PM Result Value Ref Range pH, Art POC 7.32 (L) 7.35 - 7.45 pCO2, Art POC 42 35 - 45 mmHg pO2, Art POC 102 83 - 108 mmHg Na, POC 136 135 - 145 mmol/L K POC 3.7 3.3 - 4.9 mmol/L Ionized Ca, POC 5.10 4.60 - 5.20 mg/dL Glucose, POC 199 70 - 199 mg/dL Lactate, POC 1.0 0.7 - 2.0 mmol/L SO2 (joelle) arterial 98 (H) 90 - 95 % Total CO2, Art POC 23 21 - 30 mmol/L BE, art, POC -4 mmol/L HCO3, Art POC 22 20 - 30 mmol/L Hct, POC 23.0 (L) 38.9 - 50.3 % Total Hb, POC 7.8 (L) 13.0 - 17.5 g/dL POCT glucose Collection Time: 05/04/21 8:22 PM Result Value Ref Range Glucose, POC 203 (H) 70 - 199 mg/dL Calcium, ionized Collection Time: 05/04/21 9:34 PM Result Value Ref Range Ca, ionized, bld 4.12 (L) 4.60 - 5.20 mg/dL Ca, ionized, bld, calc 3.97 (L) 4.60 - 5.20 mg/dL Blood gas, arterial Collection Time: 05/04/21 9:34 PM Result Value Ref Range pH, Art 7.33 (L) 7.35 - 7.45 PCO2, Arterial 48 (H) 35 - 45 mmHg PO2, Arterial 74 (L) 83 - 108 mmHg HCO3 Art (Calculated) 24 20 - 30 mmol/L BE, art 0 mmol/L O2 Sat Art (Measured) 94 90 - 95 % Basic metabolic panel Collection Time: 05/04/21 9:35 PM Result Value Ref Range Sodium 141 135 - 145 mmol/L Potassium, pl 3.3 3.3 - 4.9 mmol/L Chloride 106 97 - 110 mmol/L CO2 26 22 - 32 mmol/L Anion gap 9 2 - 15 mmol/L BUN 7 (L) 8 - 25 mg/dL Creatinine 0.56 (L) 0.80 - 1.30 mg/dL Glucose 165 70 - 199 mg/dL Calcium 7.7 (L) 8.5 - 10.3 mg/dL Magnesium Collection Time: 05/04/21 9:35 PM Result Value Ref Range Magnesium 2.4 1.4 - 2.5 mg/dL CBC without differential Collection Time: 05/04/21 9:35 PM Result Value Ref Range WBC 19.0 (H) 3.8 - 9.9 K/cumm Hgb 7.2 (L) 13.0 - 17.5 g/dL Hct 21.2 (L) 38.9 - 50.3 % Plt 215 150 - 400 K/cumm MPV 10.9 9.1 - 12.3 fL RBC 2.34 (L) 4.30 - 5.80 M/cumm MCV 90.6 81.3 - 96.4 fL MCH 30.8 27.1 - 33.3 pg MCHC 34.0 32.3 - 35.7 g/dL RDW CV 13.9 11.1 - 14.9 % RDW SD 46.4 35.7 - 48.1 fL NRBC abs 0.00 0.00 - 0.01 K/cumm Protime-INR Collection Time: 05/04/21 9:35 PM Result Value Ref Range PT 14.8 (H) 9.5 - 13.6 sec INR 1.3 (H) 0.9 - 1.2 aPTT Collection Time: 05/04/21 9:35 PM Result Value Ref Range aPTT 30 27 - 37 sec eGFR Collection Time: 05/04/21 9:35 PM Result Value Ref Range eGFR 113 mL/min/1.73 m2 POCT glucose Collection Time: 05/04/21 9:39 PM Result Value Ref Range Glucose, POC 139 70 - 199 mg/dL Prepare RBC: 1 Units Collection Time: 05/04/21 9:56 PM Result Value Ref Range Product code [id number] Unit Number [id number] Product Blood Type APOS Dispense Status ISSUED POCT glucose Collection Time: 05/04/21 10:59 PM Result Value Ref Range Glucose, POC 122 70 - 199 mg/dL Blood gas, arterial Collection Time: 05/04/21 11:49 PM Result Value Ref Range pH, Art 7.42 7.35 - 7.45 PCO2, Arterial 37 35 - 45 mmHg PO2, Arterial 64 (L) 83 - 108 mmHg HCO3 Art (Calculated) 24 20 - 30 mmol/L BE, art 0 mmol/L O2 Sat Art (Measured) 92 90 - 95 % Calcium, ionized Collection Time: 05/04/21 11:49 PM Result Value Ref Range Ca, ionized, bld 4.48 (L) 4.60 - 5.20 mg/dL Ca, ionized, bld, calc 4.53 (L) 4.60 - 5.20 mg/dL POCT glucose Collection Time: 05/04/21 11:53 PM Result Value Ref Range Glucose, POC 96 70 - 199 mg/dL Basic metabolic panel Collection Time: 05/05/21 12:21 AM Result Value Ref Range Sodium 142 135 - 145 mmol/L Potassium, pl 3.9 3.3 - 4.9 mmol/L Chloride 109 97 - 110 mmol/L CO2 24 22 - 32 mmol/L Anion gap 9 2 - 15 mmol/L BUN 7 (L) 8 - 25 mg/dL Creatinine 0.51 (L) 0.80 - 1.30 mg/dL Glucose 97 70 - 199 mg/dL Calcium 8.4 (L) 8.5 - 10.3 mg/dL CBC without differential Collection Time: 05/05/21 12:21 AM Result Value Ref Range WBC 14.3 (H) 3.8 - 9.9 K/cumm Hgb 7.6 (L) 13.0 - 17.5 g/dL Hct 22.6 (L) 38.9 - 50.3 % Plt 206 150 - 400 K/cumm MPV 11.4 9.1 - 12.3 fL RBC 2.48 (L) 4.30 - 5.80 M/cumm MCV 91.1 81.3 - 96.4 fL MCH 30.6 27.1 - 33.3 pg MCHC 33.6 32.3 - 35.7 g/dL RDW CV 14.1 11.1 - 14.9 % RDW SD 46.9 35.7 - 48.1 fL NRBC abs 0.00 0.00 - 0.01 K/cumm aPTT Collection Time: 05/05/21 12:21 AM Result Value Ref Range aPTT 33 27 - 37 sec Protime-INR Collection Time: 05/05/21 12:21 AM Result Value Ref Range PT 14.4 (H) 9.5 - 13.6 sec INR 1.3 (H) 0.9 - 1.2 eGFR Collection Time: 05/05/21 12:21 AM Result Value Ref Range eGFR 118 mL/min/1.73 m2 POCT glucose Collection Time: 05/05/21 1:07 AM Result Value Ref Range Glucose, POC 103 70 - 199 mg/dL Blood gas, arterial Collection Time: 05/05/21 2:25 AM Result Value Ref Range pH, Art 7.43 7.35 - 7.45 PCO2, Arterial 34 (L) 35 - 45 mmHg PO2, Arterial 58 (L) 83 - 108 mmHg HCO3 Art (Calculated) 23 20 - 30 mmol/L BE, art -2 mmol/L O2 Sat Art (Measured) 91 90 - 95 % Calcium, ionized Collection Time: 05/05/21 2:25 AM Result Value Ref Range Ca, ionized, bld 4.72 4.60 - 5.20 mg/dL Ca, ionized, bld, calc 4.80 4.60 - 5.20 mg/dL Lactate Collection Time: 05/05/21 2:25 AM Result Value Ref Range Lactate 1.6 0.7 - 2.0 mmol/L Basic metabolic panel Collection Time: 05/05/21 2:25 AM Result Value Ref Range Sodium 142 135 - 145 mmol/L Potassium, pl 4.0 3.3 - 4.9 mmol/L Chloride 110 97 - 110 mmol/L CO2 22 22 - 32 mmol/L Anion gap 10 2 - 15 mmol/L BUN 7 (L) 8 - 25 mg/dL Creatinine 0.64 (L) 0.80 - 1.30 mg/dL Glucose 135 70 - 199 mg/dL Calcium 8.2 (L) 8.5 - 10.3 mg/dL Magnesium Collection Time: 05/05/21 2:25 AM Result Value Ref Range Magnesium 2.6 (H) 1.4 - 2.5 mg/dL eGFR Collection Time: 05/05/21 2:25 AM Result Value Ref Range eGFR 107 mL/min/1.73 m2 Oxyhemoglobin, pulmonary artery Collection Time: 05/05/21 2:32 AM Result Value Ref Range Oxyhemoglobin, PA 40.0 % POCT glucose Collection Time: 05/05/21 2:55 AM Result Value Ref Range Glucose, POC 141 70 - 199 mg/dL POCT glucose Collection Time: 05/05/21 3:59 AM Result Value Ref Range Glucose, POC 122 70 - 199 mg/dL Oxyhemoglobin, pulmonary artery Collection Time: 05/05/21 4:08 AM Result Value Ref Range Oxyhemoglobin, PA 58.8 % Basic metabolic panel Collection Time: 05/05/21 4:19 AM Result Value Ref Range Sodium 143 135 - 145 mmol/L Potassium, pl 4.4 3.3 - 4.9 mmol/L Chloride 111 (H) 97 - 110 mmol/L CO2 21 (L) 22 - 32 mmol/L Anion gap 11 2 - 15 mmol/L BUN 7 (L) 8 - 25 mg/dL Creatinine 0.52 (L) 0.80 - 1.30 mg/dL Glucose 126 70 - 199 mg/dL Calcium 7.0 (L) 8.5 - 10.3 mg/dL Phosphorus Collection Time: 05/05/21 4:19 AM Result Value Ref Range Phosphorus, pl 3.4 2.3 - 4.5 mg/dL Magnesium Collection Time: 05/05/21 4:19 AM Result Value Ref Range Magnesium 1.9 1.4 - 2.5 mg/dL CBC with auto differential Collection Time: 05/05/21 4:19 AM Result Value Ref Range WBC 13.2 (H) 3.8 - 9.9 K/cumm Hgb 10.7 (L) 13.0 - 17.5 g/dL Hct 30.4 (L) 38.9 - 50.3 % Plt 191 150 - 400 K/cumm MPV 11.2 9.1 - 12.3 fL RBC 3.46 (L) 4.30 - 5.80 M/cumm MCV 87.9 81.3 - 96.4 fL MCH 30.9 27.1 - 33.3 pg MCHC 35.2 32.3 - 35.7 g/dL RDW CV 14.1 11.1 - 14.9 % RDW SD 44.9 35.7 - 48.1 fL NRBC abs 0.00 0.00 - 0.01 K/cumm Differential, auto Collection Time: 05/05/21 4:19 AM Result Value Ref Range Neutrophil abs 11.1 (H) 1.7 - 6.5 K/cumm Imm gran abs 0.1 0.0 - 0.1 K/cumm Lymphocyte abs 0.4 (L) 0.8 - 3.3 K/cumm Monocyte abs 1.5 (H) 0.2 - 0.8 K/cumm Eosinophil abs 0.0 0.0 - 0.5 K/cumm Basophil abs 0.1 0.0 - 0.1 K/cumm Neutrophil pct 84.2 % Imm gran pct 0.9 % Lymphocyte pct 3.1 % Monocyte pct 11.2 % Eosinophil pct 0.2 % Basophil pct 0.4 % Manual Differential Collection Time: 05/05/21 4:19 AM Result Value Ref Range Differential Auto RBC morphology Normal Platelet estimate Adequate eGFR Collection Time: 05/05/21 4:19 AM Result Value Ref Range eGFR 117 mL/min/1.73 m2 Blood gas, arterial Collection Time: 05/05/21 4:41 AM Result Value Ref Range pH, Art 7.42 7.35 - 7.45 PCO2, Arterial 34 (L) 35 - 45 mmHg PO2, Arterial 80 (L) 83 - 108 mmHg HCO3 Art (Calculated) 23 20 - 30 mmol/L BE, art -2 mmol/L O2 Sat Art (Measured) 96 (H) 90 - 95 % POCT glucose Collection Time: 05/05/21 5:07 AM Result Value Ref Range Glucose, POC 123 70 - 199 mg/dL POCT glucose Collection Time: 05/05/21 6:45 AM Result Value Ref Range Glucose, POC 111 70 - 199 mg/dL Blood gas, arterial Collection Time: 05/05/21 6:50 AM Result Value Ref Range pH, Art 7.41 7.35 - 7.45 PCO2, Arterial 35 35 - 45 mmHg PO2, Arterial 72 (L) 83 - 108 mmHg HCO3 Art (Calculated) 23 20 - 30 mmol/L BE, art -2 mmol/L O2 Sat Art (Measured) 95 90 - 95 % Laboratory review: Lab results in the last 24 hours: Recent Results (from the past 24 hour(s)) Urinalysis reflex to microscopic Collection Time: 05/04/21 10:13 AM Result Value Ref Range Color, ur Red (A) Yellow Clarity, ur Cloudy (A) Clear Specific gravity, ur 1.015 1.003 - 1.030 pH, urine 7.0 Protein, ur ql 3+ (A) Negative Glucose, ur ql 3+ (A) Negative Ketones, ur Trace Negative Bilirubin, ur Negative Negative Blood, ur 3+ (A) Negative Urobilinogen, ur <2.0 <2.0 mg/dL Nitrite, ur Negative Negative Leukocyte esterase, ur Negative Negative UA reflex comment Reflex to microscopic UA will be performed. Urinalysis, microscopic only Collection Time: 05/04/21 10:13 AM Result Value Ref Range WBC, ur 11-20 (A) 0 - 5 /HPF RBC, ur >50 (A) 0 - 2 /HPF POCT glucose Collection Time: 05/04/21 11:54 AM Result Value Ref Range Glucose, POC 171 70 - 199 mg/dL POC Blood Gas and Chemistries, Arterial - Collection Time: 05/04/21 2:21 PM Result Value Ref Range pH, Art POC 7.30 (L) 7.35 - 7.45 pCO2, Art POC 43 35 - 45 mmHg pO2, Art POC 238 (H) 83 - 108 mmHg Na, POC 133 (L) 135 - 145 mmol/L K POC 3.7 3.3 - 4.9 mmol/L Ionized Ca, POC 4.58 (L) 4.60 - 5.20 mg/dL Glucose, POC 145 70 - 199 mg/dL Lactate, POC 0.7 0.7 - 2.0 mmol/L SO2 (joelle) arterial 98 (H) 90 - 95 % Total CO2, Art POC 22 21 - 30 mmol/L BE, art, POC -5 mmol/L HCO3, Art POC 21 20 - 30 mmol/L Hct, POC 25.0 (L) 38.9 - 50.3 % Total Hb, POC 8.3 (L) 13.0 - 17.5 g/dL Prepare plasma: 2 Units Collection Time: 05/04/21 3:25 PM Result Value Ref Range Product code [id number] Unit Number [id number] Product Blood Type APOS Dispense Status PRESUMED TRANSFUSED Product code [id number] Unit Number [id number] Product Blood Type APOS Dispense Status PRESUMED TRANSFUSED POC Blood Gas and Chemistries, Arterial - Collection Time: 05/04/21 3:30 PM Result Value Ref Range pH, Art POC 7.29 (L) 7.35 - 7.45 pCO2, Art POC 45 35 - 45 mmHg pO2, Art POC 164 (H) 83 - 108 mmHg Na, POC 132 (L) 135 - 145 mmol/L K POC 3.7 3.3 - 4.9 mmol/L Ionized Ca, POC 4.68 4.60 - 5.20 mg/dL Glucose, POC 210 (H) 70 - 199 mg/dL Lactate, POC 0.5 (L) 0.7 - 2.0 mmol/L SO2 (joelle) arterial 99 (H) 90 - 95 % Total CO2, Art POC 23 21 - 30 mmol/L BE, art, POC -5 mmol/L HCO3, Art POC 21 20 - 30 mmol/L Hct, POC 26.0 (L) 38.9 - 50.3 % Total Hb, POC 8.5 (L) 13.0 - 17.5 g/dL POC Blood Gas and Chemistries, Arterial - Collection Time: 05/04/21 4:14 PM Result Value Ref Range pH, Art POC 7.33 (L) 7.35 - 7.45 pCO2, Art POC 40 35 - 45 mmHg pO2, Art POC 218 (H) 83 - 108 mmHg Na, POC 130 (L) 135 - 145 mmol/L K POC 4.3 3.3 - 4.9 mmol/L Ionized Ca, POC 4.30 (L) 4.60 - 5.20 mg/dL Glucose, POC 204 (H) 70 - 199 mg/dL Lactate, POC 0.6 (L) 0.7 - 2.0 mmol/L SO2 (joelle) arterial 99 (H) 90 - 95 % Total CO2, Art POC 22 21 - 30 mmol/L BE, art, POC -4 mmol/L HCO3, Art POC 22 20 - 30 mmol/L Hct, POC 20.0 (L) 38.9 - 50.3 % Total Hb, POC 6.5 (L) 13.0 - 17.5 g/dL POC Blood Gas and Chemistries, Arterial - Collection Time: 05/04/21 5:05 PM Result Value Ref Range pH, Art POC 7.34 (L) 7.35 - 7.45 pCO2, Art POC 39 35 - 45 mmHg pO2, Art POC 214 (H) 83 - 108 mmHg Na, POC 132 (L) 135 - 145 mmol/L K POC 4.2 3.3 - 4.9 mmol/L Ionized Ca, POC 4.31 (L) 4.60 - 5.20 mg/dL Glucose, POC 217 (H) 70 - 199 mg/dL Lactate, POC 0.8 0.7 - 2.0 mmol/L SO2 (joelle) arterial 100 (H) 90 - 95 % Total CO2, Art POC 22 21 - 30 mmol/L BE, art, POC -4 mmol/L HCO3, Art POC 22 20 - 30 mmol/L Hct, POC 22.0 (L) 38.9 - 50.3 % Total Hb, POC 7.2 (L) 13.0 - 17.5 g/dL Prepare RBC: 4 Units Collection Time: 05/04/21 5:43 PM Result Value Ref Range Product code [id number] Unit Number [id number] Product Blood Type APOS Dispense Status CROSSMATCHED Product code B8826K19 Unit Number [id number] Product Blood Type APOS Dispense Status CROSSMATCHED Product code C4719L52 Unit Number [id number] Product Blood Type APOS Dispense Status CROSSMATCHED Product code U0372T63 Unit Number [id number] Product Blood Type APOS Dispense Status CROSSMATCHED POC Blood Gas and Chemistries, Arterial - Collection Time: 05/04/21 5:43 PM Result Value Ref Range pH, Art POC 7.37 7.35 - 7.45 pCO2, Art POC 36 35 - 45 mmHg pO2, Art POC 215 (H) 83 - 108 mmHg Na, POC 133 (L) 135 - 145 mmol/L K POC 4.3 3.3 - 4.9 mmol/L Ionized Ca, POC 4.16 (L) 4.60 - 5.20 mg/dL Glucose, POC 199 70 - 199 mg/dL Lactate, POC 0.7 0.7 - 2.0 mmol/L SO2 (jeolle) arterial 100 (H) 90 - 95 % Total CO2, Art POC 22 21 - 30 mmol/L BE, art, POC -4 mmol/L HCO3, Art POC 22 20 - 30 mmol/L Hct, POC 21.0 (L) 38.9 - 50.3 % Total Hb, POC 6.9 (L) 13.0 - 17.5 g/dL Platelet count Collection Time: 05/04/21 5:53 PM Result Value Ref Range Plt 230 150 - 400 K/cumm POC Blood Gas and Chemistries, Arterial - Collection Time: 05/04/21 6:12 PM Result Value Ref Range pH, Art POC 7.36 7.35 - 7.45 pCO2, Art POC 42 35 - 45 mmHg pO2, Art POC 228 (H) 83 - 108 mmHg Na, POC 134 (L) 135 - 145 mmol/L K POC 5.3 (H) 3.3 - 4.9 mmol/L Ionized Ca, POC 4.20 (L) 4.60 - 5.20 mg/dL Glucose, POC 208 (H) 70 - 199 mg/dL Lactate, POC 1.4 0.7 - 2.0 mmol/L SO2 (joelle) arterial 98 (H) 90 - 95 % Total CO2, Art POC 25 21 - 30 mmol/L BE, art, POC -2 mmol/L HCO3, Art POC 24 20 - 30 mmol/L Hct, POC 25.0 (L) 38.9 - 50.3 % Total Hb, POC 8.2 (L) 13.0 - 17.5 g/dL POC Blood Gas and Chemistries, Arterial - Collection Time: 05/04/21 6:53 PM Result Value Ref Range pH, Art POC 7.34 (L) 7.35 - 7.45 pCO2, Art POC 41 35 - 45 mmHg pO2, Art POC 172 (H) 83 - 108 mmHg Na, POC 136 135 - 145 mmol/L K POC 3.8 3.3 - 4.9 mmol/L Ionized Ca, POC 3.88 (L) 4.60 - 5.20 mg/dL Glucose, POC 211 (H) 70 - 199 mg/dL Lactate, POC 1.2 0.7 - 2.0 mmol/L SO2 (joelle) arterial 99 (H) 90 - 95 % Total CO2, Art POC 23 21 - 30 mmol/L BE, art, POC -4 mmol/L HCO3, Art POC 22 20 - 30 mmol/L Hct, POC 21.0 (L) 38.9 - 50.3 % Total Hb, POC 6.9 (L) 13.0 - 17.5 g/dL Prepare cryoprecipitate (pooled units): 2 Units Collection Time: 05/04/21 6:54 PM Result Value Ref Range Product code [id number] Unit Number [id number] Product Blood Type OPOS Dispense Status ISSUED Product code A5643A57 Unit Number [id number] Product Blood Type APOS Dispense Status ISSUED POC Blood Gas and Chemistries, Arterial - Collection Time: 05/04/21 7:28 PM Result Value Ref Range pH, Art POC 7.32 (L) 7.35 - 7.45 pCO2, Art POC 42 35 - 45 mmHg pO2, Art POC 102 83 - 108 mmHg Na, POC 136 135 - 145 mmol/L K POC 3.7 3.3 - 4.9 mmol/L Ionized Ca, POC 5.10 4.60 - 5.20 mg/dL Glucose, POC 199 70 - 199 mg/dL Lactate, POC 1.0 0.7 - 2.0 mmol/L SO2 (joelle) arterial 98 (H) 90 - 95 % Total CO2, Art POC 23 21 - 30 mmol/L BE, art, POC -4 mmol/L HCO3, Art POC 22 20 - 30 mmol/L Hct, POC 23.0 (L) 38.9 - 50.3 % Total Hb, POC 7.8 (L) 13.0 - 17.5 g/dL POCT glucose Collection Time: 05/04/21 8:22 PM Result Value Ref Range Glucose, POC 203 (H) 70 - 199 mg/dL Calcium, ionized Collection Time: 05/04/21 9:34 PM Result Value Ref Range Ca, ionized, bld 4.12 (L) 4.60 - 5.20 mg/dL Ca, ionized, bld, calc 3.97 (L) 4.60 - 5.20 mg/dL Blood gas, arterial Collection Time: 05/04/21 9:34 PM Result Value Ref Range pH, Art 7.33 (L) 7.35 - 7.45 PCO2, Arterial 48 (H) 35 - 45 mmHg PO2, Arterial 74 (L) 83 - 108 mmHg HCO3 Art (Calculated) 24 20 - 30 mmol/L BE, art 0 mmol/L O2 Sat Art (Measured) 94 90 - 95 % Basic metabolic panel Collection Time: 05/04/21 9:35 PM Result Value Ref Range Sodium 141 135 - 145 mmol/L Potassium, pl 3.3 3.3 - 4.9 mmol/L Chloride 106 97 - 110 mmol/L CO2 26 22 - 32 mmol/L Anion gap 9 2 - 15 mmol/L BUN 7 (L) 8 - 25 mg/dL Creatinine 0.56 (L) 0.80 - 1.30 mg/dL Glucose 165 70 - 199 mg/dL Calcium 7.7 (L) 8.5 - 10.3 mg/dL Magnesium Collection Time: 05/04/21 9:35 PM Result Value Ref Range Magnesium 2.4 1.4 - 2.5 mg/dL CBC without differential Collection Time: 05/04/21 9:35 PM Result Value Ref Range WBC 19.0 (H) 3.8 - 9.9 K/cumm Hgb 7.2 (L) 13.0 - 17.5 g/dL Hct 21.2 (L) 38.9 - 50.3 % Plt 215 150 - 400 K/cumm MPV 10.9 9.1 - 12.3 fL RBC 2.34 (L) 4.30 - 5.80 M/cumm MCV 90.6 81.3 - 96.4 fL MCH 30.8 27.1 - 33.3 pg MCHC 34.0 32.3 - 35.7 g/dL RDW CV 13.9 11.1 - 14.9 % RDW SD 46.4 35.7 - 48.1 fL NRBC abs 0.00 0.00 - 0.01 K/cumm Protime-INR Collection Time: 05/04/21 9:35 PM Result Value Ref Range PT 14.8 (H) 9.5 - 13.6 sec INR 1.3 (H) 0.9 - 1.2 aPTT Collection Time: 05/04/21 9:35 PM Result Value Ref Range aPTT 30 27 - 37 sec eGFR Collection Time: 05/04/21 9:35 PM Result Value Ref Range eGFR 113 mL/min/1.73 m2 POCT glucose Collection Time: 05/04/21 9:39 PM Result Value Ref Range Glucose, POC 139 70 - 199 mg/dL Prepare RBC: 1 Units Collection Time: 05/04/21 9:56 PM Result Value Ref Range Product code [id number] Unit Number [id number] Product Blood Type APOS Dispense Status ISSUED POCT glucose Collection Time: 05/04/21 10:59 PM Result Value Ref Range Glucose, POC 122 70 - 199 mg/dL Blood gas, arterial Collection Time: 05/04/21 11:49 PM Result Value Ref Range pH, Art 7.42 7.35 - 7.45 PCO2, Arterial 37 35 - 45 mmHg PO2, Arterial 64 (L) 83 - 108 mmHg HCO3 Art (Calculated) 24 20 - 30 mmol/L BE, art 0 mmol/L O2 Sat Art (Measured) 92 90 - 95 % Calcium, ionized Collection Time: 05/04/21 11:49 PM Result Value Ref Range Ca, ionized, bld 4.48 (L) 4.60 - 5.20 mg/dL Ca, ionized, bld, calc 4.53 (L) 4.60 - 5.20 mg/dL POCT glucose Collection Time: 05/04/21 11:53 PM Result Value Ref Range Glucose, POC 96 70 - 199 mg/dL Basic metabolic panel Collection Time: 05/05/21 12:21 AM Result Value Ref Range Sodium 142 135 - 145 mmol/L Potassium, pl 3.9 3.3 - 4.9 mmol/L Chloride 109 97 - 110 mmol/L CO2 24 22 - 32 mmol/L Anion gap 9 2 - 15 mmol/L BUN 7 (L) 8 - 25 mg/dL Creatinine 0.51 (L) 0.80 - 1.30 mg/dL Glucose 97 70 - 199 mg/dL Calcium 8.4 (L) 8.5 - 10.3 mg/dL CBC without differential Collection Time: 05/05/21 12:21 AM Result Value Ref Range WBC 14.3 (H) 3.8 - 9.9 K/cumm Hgb 7.6 (L) 13.0 - 17.5 g/dL Hct 22.6 (L) 38.9 - 50.3 % Plt 206 150 - 400 K/cumm MPV 11.4 9.1 - 12.3 fL RBC 2.48 (L) 4.30 - 5.80 M/cumm MCV 91.1 81.3 - 96.4 fL MCH 30.6 27.1 - 33.3 pg MCHC 33.6 32.3 - 35.7 g/dL RDW CV 14.1 11.1 - 14.9 % RDW SD 46.9 35.7 - 48.1 fL NRBC abs 0.00 0.00 - 0.01 K/cumm aPTT Collection Time: 05/05/21 12:21 AM Result Value Ref Range aPTT 33 27 - 37 sec Protime-INR Collection Time: 05/05/21 12:21 AM Result Value Ref Range PT 14.4 (H) 9.5 - 13.6 sec INR 1.3 (H) 0.9 - 1.2 eGFR Collection Time: 05/05/21 12:21 AM Result Value Ref Range eGFR 118 mL/min/1.73 m2 POCT glucose Collection Time: 05/05/21 1:07 AM Result Value Ref Range Glucose, POC 103 70 - 199 mg/dL Blood gas, arterial Collection Time: 05/05/21 2:25 AM Result Value Ref Range pH, Art 7.43 7.35 - 7.45 PCO2, Arterial 34 (L) 35 - 45 mmHg PO2, Arterial 58 (L) 83 - 108 mmHg HCO3 Art (Calculated) 23 20 - 30 mmol/L BE, art -2 mmol/L O2 Sat Art (Measured) 91 90 - 95 % Calcium, ionized Collection Time: 05/05/21 2:25 AM Result Value Ref Range Ca, ionized, bld 4.72 4.60 - 5.20 mg/dL Ca, ionized, bld, calc 4.80 4.60 - 5.20 mg/dL Lactate Collection Time: 05/05/21 2:25 AM Result Value Ref Range Lactate 1.6 0.7 - 2.0 mmol/L Basic metabolic panel Collection Time: 05/05/21 2:25 AM Result Value Ref Range Sodium 142 135 - 145 mmol/L Potassium, pl 4.0 3.3 - 4.9 mmol/L Chloride 110 97 - 110 mmol/L CO2 22 22 - 32 mmol/L Anion gap 10 2 - 15 mmol/L BUN 7 (L) 8 - 25 mg/dL Creatinine 0.64 (L) 0.80 - 1.30 mg/dL Glucose 135 70 - 199 mg/dL Calcium 8.2 (L) 8.5 - 10.3 mg/dL Magnesium Collection Time: 05/05/21 2:25 AM Result Value Ref Range Magnesium 2.6 (H) 1.4 - 2.5 mg/dL eGFR Collection Time: 05/05/21 2:25 AM Result Value Ref Range eGFR 107 mL/min/1.73 m2 Oxyhemoglobin, pulmonary artery Collection Time: 05/05/21 2:32 AM Result Value Ref Range Oxyhemoglobin, PA 40.0 % POCT glucose Collection Time: 05/05/21 2:55 AM Result Value Ref Range Glucose, POC 141 70 - 199 mg/dL POCT glucose Collection Time: 05/05/21 3:59 AM Result Value Ref Range Glucose, POC 122 70 - 199 mg/dL Oxyhemoglobin, pulmonary artery Collection Time: 05/05/21 4:08 AM Result Value Ref Range Oxyhemoglobin, PA 58.8 % Basic metabolic panel Collection Time: 05/05/21 4:19 AM Result Value Ref Range Sodium 143 135 - 145 mmol/L Potassium, pl 4.4 3.3 - 4.9 mmol/L Chloride 111 (H) 97 - 110 mmol/L CO2 21 (L) 22 - 32 mmol/L Anion gap 11 2 - 15 mmol/L BUN 7 (L) 8 - 25 mg/dL Creatinine 0.52 (L) 0.80 - 1.30 mg/dL Glucose 126 70 - 199 mg/dL Calcium 7.0 (L) 8.5 - 10.3 mg/dL Phosphorus Collection Time: 05/05/21 4:19 AM Result Value Ref Range Phosphorus, pl 3.4 2.3 - 4.5 mg/dL Magnesium Collection Time: 05/05/21 4:19 AM Result Value Ref Range Magnesium 1.9 1.4 - 2.5 mg/dL CBC with auto differential Collection Time: 05/05/21 4:19 AM Result Value Ref Range WBC 13.2 (H) 3.8 - 9.9 K/cumm Hgb 10.7 (L) 13.0 - 17.5 g/dL Hct 30.4 (L) 38.9 - 50.3 % Plt 191 150 - 400 K/cumm MPV 11.2 9.1 - 12.3 fL RBC 3.46 (L) 4.30 - 5.80 M/cumm MCV 87.9 81.3 - 96.4 fL MCH 30.9 27.1 - 33.3 pg MCHC 35.2 32.3 - 35.7 g/dL RDW CV 14.1 11.1 - 14.9 % RDW SD 44.9 35.7 - 48.1 fL NRBC abs 0.00 0.00 - 0.01 K/cumm Differential, auto Collection Time: 05/05/21 4:19 AM Result Value Ref Range Neutrophil abs 11.1 (H) 1.7 - 6.5 K/cumm Imm gran abs 0.1 0.0 - 0.1 K/cumm Lymphocyte abs 0.4 (L) 0.8 - 3.3 K/cumm Monocyte abs 1.5 (H) 0.2 - 0.8 K/cumm Eosinophil abs 0.0 0.0 - 0.5 K/cumm Basophil abs 0.1 0.0 - 0.1 K/cumm Neutrophil pct 84.2 % Imm gran pct 0.9 % Lymphocyte pct 3.1 % Monocyte pct 11.2 % Eosinophil pct 0.2 % Basophil pct 0.4 % Manual Differential Collection Time: 05/05/21 4:19 AM Result Value Ref Range Differential Auto RBC morphology Normal Platelet estimate Adequate eGFR Collection Time: 05/05/21 4:19 AM Result Value Ref Range eGFR 117 mL/min/1.73 m2 Blood gas, arterial Collection Time: 05/05/21 4:41 AM Result Value Ref Range pH, Art 7.42 7.35 - 7.45 PCO2, Arterial 34 (L) 35 - 45 mmHg PO2, Arterial 80 (L) 83 - 108 mmHg HCO3 Art (Calculated) 23 20 - 30 mmol/L BE, art -2 mmol/L O2 Sat Art (Measured) 96 (H) 90 - 95 % POCT glucose Collection Time: 05/05/21 5:07 AM Result Value Ref Range Glucose, POC 123 70 - 199 mg/dL POCT glucose Collection Time: 05/05/21 6:45 AM Result Value Ref Range Glucose, POC 111 70 - 199 mg/dL Blood gas, arterial Collection Time: 05/05/21 6:50 AM Result Value Ref Range pH, Art 7.41 7.35 - 7.45 PCO2, Arterial 35 35 - 45 mmHg PO2, Arterial 72 (L) 83 - 108 mmHg HCO3 Art (Calculated) 23 20 - 30 mmol/L BE, art -2 mmol/L O2 Sat Art (Measured) 95 90 - 95 % XR Chest 1 Vw Portable Result Date: 05/04/2021 Stable appearance. COPD cardiomegaly, with mild failure suspected. Electronically signed by: Todd Kuo Plan: Neuro: #Acute on chronic pain - PRN oxycodone 5mg q4h and tylenol - delirium/fall precautions - continue to ensure adequate sleep hygiene #Sedation for intubation - Propofol stopped this AM ? 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 Pulmonary: - Acute respiratory failure - Patient self-extubated at time of this note, was requiring PEEP 8 and FiO2 70% - optiflow for now, may require reintubation - maintain O2 sats greater than 92% - incentive spirometry ?? GI/Nutrition: Diet: cardiac diet held for respiratory status - Dietitian following PUD PPx: PPI Bowel regimen: pericolace, miralax ?? Endocrine: #Poorly controlled diabetes - Hemoglobin A1c 13.5 - Insulin gtt, convert to subq when taking diet again ?? Renal: - Cr 0.6 - UOP adequate - Urology c/s for bladder bleeding: CBI - keep Osorio catheter for strict, accurate I/Os, when applicable will discontinue Osorio catheter per the HOUDINI protocol - trend renal function, avoid nephrotoxins, renal dose medications - optimize electrolytes with caution to renal function ?-goal K ~4, Mg >??2.2, phos >??3, iCAL >??4.5 ?-provide supplement as needed ?-AM BMP and electrolytes check ?? Heme/Oncology: #Acute blood loss anemia - Hgb 10.7 - transfused 3u PRBC o/n in ICU Total with OR transfusion = 5u PRBC, 2 Plt, 2 FFP, 1 Cryo - Transfuse for hgb < 8 - CBC in am ? DVT PPX: SCD's, chemo ppx held per surgeon preference in setting of bleeding bladder ?? ID: #Community acquired PNA - Culture pending - Cefepime and vancomycin Musculoskeletal/Skin: High risk for skin breakdown given immobilization - skin care per unit protocol - PT/OT per post MT/CTS protocol ? ICU standards of care: Restraints: Wrist restraints required, pulled ETT, risk for pulling at lines Physical therapy/Activity: bedrest (IABP) Access: PIV x3, R fem arterial sheath w IABP, PA Cath, Art line in R fem and L radial Family communication: none at bedside. Will update as available. Patient updated as per his currentclinical status and ongoing plan of care. Goals of care: Full code SICU [place] Team, Dr. Nimesh Evans Assessment and plan has been reviewed with attending, FRANK Romero. Cosigned by Frank Dugan MD at 05/05/2021 12:22 PM STAFF FORESTER F FORESTER F FORESTER * Samra Kearns, SALESFORCE ADMINISTRATOR - 05/05/2021 9:35 AM CST Patient self-extubated at this time. SPO2 84% on room air. Placed patient on 100% FIO2 via non-rebreather mask. SPO2 increased to 92%. Opti-flow set up at this time for increased flow. Starting settings 100% FIO2 and 60 liters per minute. Will continue to monitor oxygen requirements and wean as tolerated. F FORESTER * Lise Suggs NP - 05/05/2021 8:14 AM CST Urology Progress Note Subjective Deepak Alvarado is a 60 y.o. male with CAD who is POD-1 that we are seeing for gross hematuria. He has continues bladder irrigation and a wide open rate. His urine is clear. Lab Results Component Value Date CREATININE 0.52 (L) 05/05/2021 and CBC: Lab Results Component Value Date WBC 13.2 (H) 05/05/2021 HGB 10.7 (L) 05/05/2021 HGB 7.8 (L) 05/04/2021 Lab/Radiology/Diagnostic Review: Most Recent: Vitals: 05/05/21 0745 BP: Pulse: 90 Resp: 23 Temp: SpO2: 96% Review of Systems: All other systems except the HPI are negative. Objective Physical exam: Constitutional: Appears well-developed and well-nourished. Head: Normocephalic and atraumatic. Eyes: Closed Pulmonary/Chest: On the ventilator Musculoskeletal: Sedated and intubated Neurological: Seated and intubated Psychiatric: Sedated Extremities: warm : 12. Three-way hematuria Indwelling Osorio catheter is patent. Assessment /Plan Principal Problem: ST elevation myocardial infarction (STEMI) (HCC) 60 y.o. male with gross hematuria with clot retention. Continue to monitor his urinary output and provide catheter care. Closely monitor the continue bladder irrigation. Titrate CBI to keep the output pink to clear. Irrigate with 60 mL of saline as needed for occlusion. Will continue to monitor. Thank you for allowing Urology to be a part of the care of your patient. Please call if you have any questions. Lise Suggs NP Urology Division [facility] Office [phone] 05/05/2021 8:15 AM Cosigned by Edward Trejo DO at 05/05/2021 10:26 AM STAFF FORESTER F FORESTER F FORESTER * Deirdre Conley OT - 05/05/2021 7:55 AM CST Occupational Therapy 05/05/21 0755 General Session Type Other (comment) (No OT Provided. No OT Charge.) OT Missed Visit Reason Other (comment) (Medical Cancel.) Per consultation with RN, patient not medically stable for OT evaluation and still has a balloon-pump in place. Will continue to follow patient and re- attempt OT evaluation at a later time and when medically appropriate Deirdre Conley OT 05/05/21 7:56 AM F FORESTER * Angie Davies RRT - 05/05/2021 2:21 AM CST Code Blue was called at approximately 0200. Pt was ventilated with BVM, ROSC was achieved quickly. Patient returned to ventilator on prior settings and etCO2 monitoring was initiated. F FORESTER * Lester Batista MD - 05/04/2021 9:59 AM CST Cardiology Inpatient Progress Note [facility] SUBJECTIVE: BP borderline in IABP 1:1, drowzy this AM due to valium OBJECTIVE: Vitals: 05/04/21 0830 05/04/21 0845 05/04/21 0900 05/04/21 0915 BP: 106/49 (!) 83/43 (!) 88/63 (!) 94/42 BP Location: Patient Position: Pulse: 85 91 87 85 Resp: 24 29 19 22 Temp: 36.7 ??C (98.1 ??F) TempSrc: Oral SpO2: 94% 93% 91% 91% Weight: Height: General: Awake but drowzy, No acute distress. Cardiac: RRR without murmur or gallop. Normal S1 and S2. No JVD. Vascular: Pulses are palpable in all extremities. No carotid bruits. Lungs: Clear to auscultation (B). Abdomen: Soft, NT/ND, +BS Ext: Warm without edema. No cyanosis or clubbing. ASSESSMENT/PLAN: 1. STEMI: -Cardiac cath on 05/01 with 40% distal LM; 100% prox LAD; 90% prox Cx; 50% prox and distal RCA -Left ventriculogram:??Moderate blanka-apical hypokinesis; echo on 05/02 with EF ~40% -PTCA of LAD done using 3.0, 3.5 balloon and of D1 using 1.5, 2.0, 2.5 balloons??and flow restored. - on IABP 1:1 -CTS following is supposed to have CABG today 2. Dyslipidemia: -stable on Atorvastatin 80mg qday 3. Diabetes -stable on insulin per primary team 4. COPD: -stable without any acute issues ?? 5. PAD: - stable 6. Recent bladder surgery/Hematuria/Anemia: -stable post 1u PRBC on 05/02 hb trend stable - Urology following Lester Batista MD, [facility], [facility], [facility] [employer] [facility] [phone] F FORESTER * Nimesh Evans MD - 05/04/2021 9:53 AM CST Images from the original note were not included. Critical Care Medicine Daily Progress Team: SICU [place] Team Subjective Interval events: No issues overnight, chronic back pain better controlled on current pain regimen. Persisting hematuria but urine appears news reporter in color. Hemoglobin stable post transfusion. O2 sats98% on 2 L nasal cannula with normal work of breathing. Hemodynamically stable, IABP remains in place, right groin areas soft and dressing intact. Distal lower extremities pulses palpable ?? 05/02/2021: NAJMA. Only complaints are of back pain from lying in bed. No chest pain shortness of breath, orthopnea, abdominal pain, n/v/d. Plan for CABG on Tuesday. 05/04/21: Increased blood clot from osorio and obstruction with pain. ?? HPI Ms. Elias is a 60-year-old gentleman with a history of coronary artery disease status post multiple PCIs with stent placement. ??He awoke yesterday morning unable to void and was found to have hematuria for which she underwent what sounds to be a cystoscopy and a Osorio catheter was placed. ??He was discharged home and developed chest pain and shortness of breath. ??He presented to an outside hospital and was found to have EKG findings concerning for myocardial infarction. ??He was subsequentlytransferred to the cardiac catheterization lab here at [facility] where he underwent coronary angiography via right common femoral artery which demonstrated an LAD multiple stenosesand underwent PTCA of the LAD and diagonal. ??Left ventriculogram demonstrated moderate anteroapical hypokinesis. ??The case was discussed with Dr. Granados.?An intra-aortic balloon pump was placedvia the right common femoral access in demonstrates good augmentation on bedside exam. ??He was started on Integrilin and heparin drips and transferred to the ICU for planned CABG on Tuesday. ?? Currently the patient states his chest pain is resolved and he denies shortness of breath. ??His only complaint is some back pain which she states is chronic for him when he lays down. ??He does not usually take anything for this at home. ??He denies any nausea, shortness of breath, or change in bowel habits. Scheduled Medications: aspirin, 324 mg, oral, Daily atorvastatin, 80 mg, oral, Daily cefepime, 1,000 mg, intravenous, Q12H LEAH insulin glargine, 0.15 Units/kg, subcutaneous, Nightly insulin lispro, 0-4 Units, subcutaneous, Nightly insulin lispro, 0-5 Units, subcutaneous, TID with meals insulin lispro, 0.05 Units/kg, subcutaneous, TID with meals lidocaine, 2 patch, transdermal, Daily lidocaine jelly, 5 mL, endotracheal, Once metoprolol tartrate, 12.5 mg, oral, BID pantoprazole DR, 40 mg, oral, Daily ramelteon, 8 mg, oral, Nightly senna-docusate, 1 tablet, oral, Nightly traZODone, 50 mg, oral, Nightly Continuous Medications: eptifibatide, 2 mcg/kg/min, Last Rate: Stopped (05/04/21 0700) heparin, 0-33 Units/kg/hr, Last Rate: 11.6 Units/kg/hr (05/04/21 0700) sodium chloride 0.9 %, 3,000 mL sodium chloride 0.9%, 50 mL/hr, Last Rate: 50 mL/hr (05/03/21 1800) PRN Medications: ??? acetaminophen ??? dextrose OR dextrose ??? glucagon ??? heparin OR heparin ??? ondansetron ??? oxyCODONE Objective Vitals: Most Recent: Vitals: 05/04/21914 BP: (!) 94/42 Pulse: 85 Resp: 22 Temp: SpO2: 91% 24hr Min/Max: Temp Min: 36.6 ??C (97.8 ??F) Max: 36.8 ??C (98.3 ??F) Pulse Min: 75 Max: 116 BP Min: 82/33 Max: 124/69 Resp Min: 13 Max: 33 SpO2 Min: 88 % Max: 98 % LDA: Arterial Sheath 8 Fr. Right Femoral (Active) Placement Date/Time: 05/01/21 1730 Catheter Time Out Checklist Completed: Yes Hand Hygiene Performed: Yes Site Prep: Alcohol;Chlorhexidine Site Prep Agent has Completely Dried Before Insertion: Yes All 5 Sterile Barriers or Appropriate Barriers ... Number of days: 2 IABP 8.0 Fr. 50 mL (Active) Placement Date/Time: 05/01/21 1834 Insertion Site: Right femoral Sutured: Yes Catheter/Balloon Size: 8.0 Fr. Balloon/ Catheter Volume: 50 mL Verification by X-ray: Yes Number of days: 2 Urethral Catheter Straight-tip (Active) Placement Date: 04/30/21 Inserted by: inserted by urologist at [facility] Placed by External Staff?: Other hospital Catheter Type: Straight-tip Catheter Balloon Size: 10 mL Urine Returned: (c) Yes Number of days: 4 I/O: Date 05/03/21 07 - 05/04/21 0659 05/04/21 07 - 05/05/21 0659 Shift [id number] 7725-8949 24 Hour Total [id number] 2012-4085 24 Hour Total INTAKE P.O. 360 360 I.V.(mL/kg) 1158(12.6) 878(9.6) 2036(22.3) Shift Total(mL/kg) 1518(16.5) 878(9.6) 2396(26.2) OUTPUT Urine(mL/kg/hr) 720(0.7) 1310(1.2) 2030(0.9) 310 310 Shift Total(mL/kg) 720(7.8) 1310(14.3) 2030(22.2) 310(3.4) 310(3.4) NET 798 -225 366 -310 -310 Weight (kg) 91.8 91.3 91.3 91.3 91.3 91.3 Physical Exam: Gen: Writhing from bladder pain, otherwise generally well appearing HEENT: NC/AT, PERRLA, EOMI Neck: Supple, Trachea Midline CV: NSR, Distal pulses intact, IABP 1:1 Pulm: CTAB, NLR Abd: Soft, ttp suprapubic : Osorio with hematuria and clots Ext: No edema noted Skin: Warm, Dry Neuro: A&Ox3, no focal deficits Psych: Normal mood, appropriate insight Lab/Radiology/Diagnostic Review: Laboratory review: Lab results in the last 24 hours: Recent Results (from the past 24 hour(s)) POCT glucose Collection Time: 05/03/21 11:20 AM Result Value Ref Range Glucose, POC 108 70 - 199 mg/dL POCT glucose Collection Time: 05/03/21 4:46 PM Result Value Ref Range Glucose, POC 177 70 - 199 mg/dL POCT glucose Collection Time: 05/03/21 7:59 PM Result Value Ref Range Glucose, POC 161 70 - 199 mg/dL POCT glucose Collection Time: 05/04/21 2:38 AM Result Value Ref Range Glucose, POC 218 (H) 70 - 199 mg/dL Phosphorus Collection Time: 05/04/21 2:47 AM Result Value Ref Range Phosphorus, pl 2.6 2.3 - 4.5 mg/dL Magnesium Collection Time: 05/04/21 2:47 AM Result Value Ref Range Magnesium 1.6 1.4 - 2.5 mg/dL Comprehensive metabolic panel Collection Time: 05/04/21 2:47 AM Result Value Ref Range Sodium 131 (L) 135 - 145 mmol/L Potassium, pl 4.0 3.3 - 4.9 mmol/L Chloride 100 97 - 110 mmol/L CO2 20 (L) 22 - 32 mmol/L Anion gap 11 2 - 15 mmol/L BUN 7 (L) 8 - 25 mg/dL Creatinine 0.58 (L) 0.80 - 1.30 mg/dL Glucose 231 (H) 70 - 199 mg/dL Calcium 8.5 8.5 - 10.3 mg/dL Bilirubin, total 0.4 0.1 - 1.2 mg/dL Protein, pl 5.8 (L) 6.5 - 8.5 g/dL Albumin 3.1 (L) 3.5 - 5.0 g/dL Alk phos 69 40 - 130 Units/L ALT 18 7 - 55 Units/L AST 50 10 - 50 Units/L aPTT Collection Time: 05/04/21 2:47 AM Result Value Ref Range aPTT 57 (H) 27 - 37 sec Protime-INR Collection Time: 05/04/21 2:47 AM Result Value Ref Range PT 13.4 9.5 - 13.6 sec INR 1.2 0.9 - 1.2 eGFR Collection Time: 05/04/21 2:47 AM Result Value Ref Range eGFR 112 mL/min/1.73 m2 CBC without differential Collection Time: 05/04/21 2:52 AM Result Value Ref Range WBC 16.7 (H) 3.8 - 9.9 K/cumm Hgb 10.2 (L) 13.0 - 17.5 g/dL Hct 29.6 (L) 38.9 - 50.3 % Plt 332 150 - 400 K/cumm MPV 12.0 9.1 - 12.3 fL RBC 3.25 (L) 4.30 - 5.80 M/cumm MCV 91.1 81.3 - 96.4 fL MCH 31.4 27.1 - 33.3 pg MCHC 34.5 32.3 - 35.7 g/dL RDW CV 14.3 11.1 - 14.9 % RDW SD 47.9 35.7 - 48.1 fL NRBC abs 0.00 0.00 - 0.01 K/cumm POCT glucose Collection Time: 05/04/21 8:03 AM Result Value Ref Range Glucose, POC 265 (H) 70 - 199 mg/dL POCT glucose Collection Time: 05/04/21 9:45 AM Result Value Ref Range Glucose, POC 214 (H) 70 - 199 mg/dL Laboratory review: Lab results in the last 24 hours: Recent Results (from the past 24 hour(s)) POCT glucose Collection Time: 05/03/21 11:20 AM Result Value Ref Range Glucose, POC 108 70 - 199 mg/dL POCT glucose Collection Time: 05/03/21 4:46 PM Result Value Ref Range Glucose, POC 177 70 - 199 mg/dL POCT glucose Collection Time: 05/03/21 7:59 PM Result Value Ref Range Glucose, POC 161 70 - 199 mg/dL POCT glucose Collection Time: 05/04/21 2:38 AM Result Value Ref Range Glucose, POC 218 (H) 70 - 199 mg/dL Phosphorus Collection Time: 05/04/21 2:47 AM Result Value Ref Range Phosphorus, pl 2.6 2.3 - 4.5 mg/dL Magnesium Collection Time: 05/04/21 2:47 AM Result Value Ref Range Magnesium 1.6 1.4 - 2.5 mg/dL Comprehensive metabolic panel Collection Time: 05/04/21 2:47 AM Result Value Ref Range Sodium 131 (L) 135 - 145 mmol/L Potassium, pl 4.0 3.3 - 4.9 mmol/L Chloride 100 97 - 110 mmol/L CO2 20 (L) 22 - 32 mmol/L Anion gap 11 2 - 15 mmol/L BUN 7 (L) 8 - 25 mg/dL Creatinine 0.58 (L) 0.80 - 1.30 mg/dL Glucose 231 (H) 70 - 199 mg/dL Calcium 8.5 8.5 - 10.3 mg/dL Bilirubin, total 0.4 0.1 - 1.2 mg/dL Protein, pl 5.8 (L) 6.5 - 8.5 g/dL Albumin 3.1 (L) 3.5 - 5.0 g/dL Alk phos 69 40 - 130 Units/L ALT 18 7 - 55 Units/L AST 50 10 - 50 Units/L aPTT Collection Time: 05/04/21 2:47 AM Result Value Ref Range aPTT 57 (H) 27 - 37 sec Protime-INR Collection Time: 05/04/21 2:47 AM Result Value Ref Range PT 13.4 9.5 - 13.6 sec INR 1.2 0.9 - 1.2 eGFR Collection Time: 05/04/21 2:47 AM Result Value Ref Range eGFR 112 mL/min/1.73 m2 CBC without differential Collection Time: 05/04/21 2:52 AM Result Value Ref Range WBC 16.7 (H) 3.8 - 9.9 K/cumm Hgb 10.2 (L) 13.0 - 17.5 g/dL Hct 29.6 (L) 38.9 - 50.3 % Plt 332 150 - 400 K/cumm MPV 12.0 9.1 - 12.3 fL RBC 3.25 (L) 4.30 - 5.80 M/cumm MCV 91.1 81.3 - 96.4 fL MCH 31.4 27.1 - 33.3 pg MCHC 34.5 32.3 - 35.7 g/dL RDW CV 14.3 11.1 - 14.9 % RDW SD 47.9 35.7 - 48.1 fL NRBC abs 0.00 0.00 - 0.01 K/cumm POCT glucose Collection Time: 05/04/21 8:03 AM Result Value Ref Range Glucose, POC 265 (H) 70 - 199 mg/dL POCT glucose Collection Time: 05/04/21 9:45 AM Result Value Ref Range Glucose, POC 214 (H) 70 - 199 mg/dL XR Chest 1 Vw Portable Result Date: 05/04/2021 Stable appearance. COPD cardiomegaly, with mild failure suspected. Electronically signed by: Todd Kuo Plan: Neuro: #Acute on chronic pain - PRN oxycodone 5mg q4h and tylenol - delirium/fall precautions - continue to ensure adequate sleep hygiene ? CV: Anterior STEMI s/p PTCA to LAD - rethrombosis of existing stents - IABP 1:1 - ASA continued, Integrilin & heparin gtt held for procedure - CABG 05/04 - Echo done 05/02 EF 40% - Metoprolol 12.5 BID - statin ?? Pulmonary: - 3L NC -maintain O2 sats greater than 92% - incentive spirometry ?? GI/Nutrition: Diet: cardiac diet held for OR - Dietitian following PUD PPx: PPI Bowel regimen: pericolace ?? Endocrine: Poorly controlled diabetes Hemoglobin A1c 13.5 SSI lantus 13 ?? Renal: - Cr 0.6 - UOP adequate - Urology c/s for bladder bleeding: CBI - keep Osorio catheter for strict, accurate I/Os, when applicable will discontinue Osorio catheter per the HOUDINI protocol - trend renal function, avoid nephrotoxins, renal dose medications - optimize electrolytes with caution to renal function ?-goal K ~4, Mg >??2.2, phos >??3, iCAL >??4.5 ?-provide supplement as needed ?-AM BMP and electrolytes check ?? Heme/Oncology: - Transfuse for hgb < 8 - CBC in am ?? -hep gtt, PTT goal 60-90 ?? DVT PPX: SCD's, hep gtt ?? ID: Afebrile - Leukocytosis, likely reactive - trend - Monitor fever curve ?? Musculoskeletal/Skin: High risk for skin breakdown given immobilization - skin care per unit protocol - PT/OT per post MT/CTS protocol ? ICU standards of care: Restraints: n/a Physical therapy/Activity: bedrest (IABP) Access: PIV, R fem arterial sheath Family communication: none at bedside. Will update as available. Patient updated as per his currentclinical status and ongoing plan of care. Goals of care: Full code SICU [place] Team, Dr. Nimesh Evans Assessment and plan has been reviewed with attending, FRNAK Romero Cosigned by Frank Dugan MD at 05/04/2021 10:51 AM STAFF FORESTER F FORESTER F FORESTER * Elizabeth Adan NP - 05/04/2021 8:53 AM CST General Medicine Daily Progress Reason for hospitalization: STEMI Subjective: awake ; denies chest pain ; on heparin drip ; reports discomfort due to placement of 20french osorio for cont irrigation 2/2 hematuria - NPO for planned CABG; IABP in placed; R groin dressing intact; immobilizer in place Objective: Vitals: 05/04/21 0645 05/04/21 0700 05/04/21 0715 05/04/21 0730 BP: (!) 103/36 123/97 109/56 (!) 100/38 BP Location: Patient Position: Pulse: 84 115 93 85 Resp: 27 17 28 (!) 33 Temp: TempSrc: SpO2: 91% 90% 91% (!) 89% Weight: Height: I/O last 2 completed shifts: In: 2395 [P.O.:360; I.V.:2035] Out: 2029 [Urine:2029] No intake/output data recorded. Medications: Scheduled Medications Medication Dose Route Frequency ??? aspirin chewable tablet 324 mg 324 mg oral Daily ??? atorvastatin (LIPITOR) tablet 80 mg 80 mg oral Daily ??? insulin glargine (LANTUS, SEMGLEE) 100 unit/mL injection 13 Units 0.15 Units/kg subcutaneous Nightly ??? insulin lispro (HumaLOG, ADMELOG) 100 unit/mL injection 0-4 Units 0-4 Units subcutaneous Nightly ??? insulin lispro (HumaLOG, ADMELOG) 100 unit/mL injection 0-5 Units 0-5 Units subcutaneous TID with meals ??? insulin lispro (HumaLOG, ADMELOG) 100 unit/mL injection 4 Units 0.05 Units/kg subcutaneous TID with meals ??? lidocaine (LIDODERM) 5 % patch 2 patch 2 patch transdermal Daily ??? lidocaine jelly (XYLOCAINE) 2 % 100 mg 5 mL endotracheal Once ??? magnesium sulfate 4 g/100 mL in water (premix) 4 g 4 g intravenous Once ??? metoprolol tartrate (LOPRESSOR) immediate release tablet 12.5 mg 12.5 mg oral BID ??? pantoprazole DR (PROTONIX) extended release tablet 40 mg 40 mg oral Daily ??? ramelteon (ROZEREM) tablet 8 mg 8 mg oral Nightly ??? senna-docusate (PERICOLACE) 8.6-50 mg per tablet 1 tablet 1 tablet oral Nightly ??? traZODone (DESYREL) tablet 50 mg 50 mg oral Nightly Physical Exam: Gen: appears in no acute distress Neuro: Alert, oriented in time place and person. Pulmonary: clear to ausculation; No crackles or rhonchi. Cardiovascular: ieregular rhythm. No murmurs heard. GI: abdomen soft, non-tender; positive BS Musculoskeletal: r groin dressing IABP Skin: No decubitus ulcers - osorio - 3 way; bloody urine Labs: Labs reviewed Recent Results (from the past 24 hour(s)) Prepare RBC: 4 Units Collection Time: 05/03/21 9:26 AM Result Value Ref Range Product code V3525Q11 Unit Number [id number] Product Blood Type APOS Dispense Status CROSSMATCHED Product code T8296M38 Unit Number [id number] Product Blood Type APOS Dispense Status CROSSMATCHED Product code V0643U54 Unit Number [id number] Product Blood Type APOS Dispense Status CROSSMATCHED Product code D1565F27 Unit Number [id number] Product Blood Type APOS Dispense Status CROSSMATCHED POCT glucose Collection Time: 05/03/21 11:20 AM Result Value Ref Range Glucose, POC 108 70 - 199 mg/dL POCT glucose Collection Time: 05/03/21 4:46 PM Result Value Ref Range Glucose, POC 177 70 - 199 mg/dL POCT glucose Collection Time: 05/03/21 7:59 PM Result Value Ref Range Glucose, POC 161 70 - 199 mg/dL POCT glucose Collection Time: 05/04/21 2:38 AM Result Value Ref Range Glucose, POC 218 (H) 70 - 199 mg/dL Phosphorus Collection Time: 05/04/21 2:47 AM Result Value Ref Range Phosphorus, pl 2.6 2.3 - 4.5 mg/dL Magnesium Collection Time: 05/04/21 2:47 AM Result Value Ref Range Magnesium 1.6 1.4 - 2.5 mg/dL Comprehensive metabolic panel Collection Time: 05/04/21 2:47 AM Result Value Ref Range Sodium 131 (L) 135 - 145 mmol/L Potassium, pl 4.0 3.3 - 4.9 mmol/L Chloride 100 97 - 110 mmol/L CO2 20 (L) 22 - 32 mmol/L Anion gap 11 2 - 15 mmol/L BUN 7 (L) 8 - 25 mg/dL Creatinine 0.58 (L) 0.80 - 1.30 mg/dL Glucose 231 (H) 70 - 199 mg/dL Calcium 8.5 8.5 - 10.3 mg/dL Bilirubin, total 0.4 0.1 - 1.2 mg/dL Protein, pl 5.8 (L) 6.5 - 8.5 g/dL Albumin 3.1 (L) 3.5 - 5.0 g/dL Alk phos 69 40 - 130 Units/L ALT 18 7 - 55 Units/L AST 50 10 - 50 Units/L aPTT Collection Time: 05/04/21 2:47 AM Result Value Ref Range aPTT 57 (H) 27 - 37 sec Protime-INR Collection Time: 05/04/21 2:47 AM Result Value Ref Range PT 13.4 9.5 - 13.6 sec INR 1.2 0.9 - 1.2 eGFR Collection Time: 05/04/21 2:47 AM Result Value Ref Range eGFR 112 mL/min/1.73 m2 CBC without differential Collection Time: 05/04/21 2:52 AM Result Value Ref Range WBC 16.7 (H) 3.8 - 9.9 K/cumm Hgb 10.2 (L) 13.0 - 17.5 g/dL Hct 29.6 (L) 38.9 - 50.3 % Plt 332 150 - 400 K/cumm MPV 12.0 9.1 - 12.3 fL RBC 3.25 (L) 4.30 - 5.80 M/cumm MCV 91.1 81.3 - 96.4 fL MCH 31.4 27.1 - 33.3 pg MCHC 34.5 32.3 - 35.7 g/dL RDW CV 14.3 11.1 - 14.9 % RDW SD 47.9 35.7 - 48.1 fL NRBC abs 0.00 0.00 - 0.01 K/cumm POCT glucose Collection Time: 05/04/21 8:03 AM Result Value Ref Range Glucose, POC 265 (H) 70 - 199 mg/dL Assessment & Plan: Acute anterior wall MT on admission. Admission troponins were 5852, 7281, 7050, 6777, with delta of24, 20, 16. Status post cardiac catheterization on 05/01/2021 with PTCA of LAD done using 3.0, 3.5 balloon and of diagnol using 1.5, 2.0, 2.5 balloons and flow restored. Status post IABP on 05/01/2021. CTS service consulted, plan for CABG today On aspirin, statin, metoprolol. Gross Hematuria - in a pt witj hx of cystoscopy, clot evacuation and transurethral resection of bladder tumor at [facility] ; urology consult ; [address] [facility] - start continuous irrigation CAD, status post LAD stent on 02/06/2010, per Care everywhere. Bladder tumor resection at [facility], on 04/30/2021, per patient report. Hypertension. Blood pressure controlled. On metoprolol. Hyperlipidemia. On statin. Type 2 diabetes. On Lantus, sliding-scale insulin. PVD. No ABIs or AIF available for review. Tobacco use. Vitamin-D deficiency. Leukocytosis of 16.4, follow. Anemia with hemoglobin of 10.7, follow. Slight hyponatremia, resolved. Prophylaxis. Protonix, SCDs. Elizabeth Adan, [facility] [phone] 05/04/2021 8:53 AM F FORESTER * Laly Lopes MD - 05/04/2021 6:58 AM CST Cardiothoracic Surgery Progress Note [facility] 1960 [facility] DAY#3 3 Days Post-Op s/p: Procedures: * PCI PTCA - MAJOR CORONARY * PCI PTCA EA ADDTN'L BRANCH OF MAJOR CORONARY (+) * IABP INSERTION, PERCUTANEOUS [id number] Subjective: - no chest pain or SOB - Continued hematuria with bladder pressure, osorio irrigated 4 times overnight, pending evaluation this AM, H/H stable Objective Vitals: Temp: [36.6 ??C (97.8 ??F)-36.8 ??C (98.3 ??F)] 36.7 ??C (98 ??F) Pulse: [73-116] 96 BP: (82-143)/(28-84) 105/55 Resp: [0-31] 25 SpO2: [90 %-98 %] 93 % Wt Readings from Last 3 Encounters: 05/04/21 91.3 kg (201 lb 4.5 oz) 08/27/13 114.3 kg (252 lb) 10/19/12 111.6 kg (246 lb) I/O last 2 completed shifts: In: 1893.2 [P.O.:360; I.V.:1433.2; IV Piggyback:100] Out: 2450 [Urine:2450] Physical Exam Alert, oriented, no distress Normocephalic Regular rate, nl s1/s2 cta b/l no wheezing allens test normal on left hand (right hand-dominant) WWP, palpable AT pulses Recent Labs Lab Units 05/04/21 02505/03/2141805/02/21 193 WBC K/cumm 16.7* 16.4* 16.5* HEMOGLOBIN g/dL 10.2* 10.7* 10.4* HEMATOCRIT % 29.6* 31.0* 30.7* PLATELETS K/cumm 332 321 317 Recent Labs Lab Units 05/04/2124605/03/2141805/02/21 1935 SODIUM mmol/L 131* 136 135 POTASSIUM PLASMA mmol/L 4.0 4.0 3.6 CHLORIDE mmol/L 100 105 103 CO2 mmol/L 20* 19* 21* BUN SERUM mg/dL 7* 6* 6* CREATININE mg/dL 0.58* 0.51* 0.60* CALCIUM mg/dL 8.5 8.6 8.4* Recent Labs Lab Units 05/04/21 02405/03/21 04105/02/21 1100 05/02/21 0032 05/01/21 2219 PROTIME (PT) sec 13.4 -- -- -- 14.5* INR 1.2 -- -- -- 1.3* APTT sec 57* 64* 61* < > 82* < > = values in this interval not displayed. Recent Labs Lab Units 05/01/219 PH ART 7.35 PCO2 ART mmHg 37 PO2 ART mmHg 31* BASE EXC ART mmol/L -5 Drips: Heparin integrilin Echo: CONCLUSIONS: Technically difficult study with limited views. Normal left ventricular size. Left ventricle not well visualized. There is severe hypokinesis of the mid anteroseptal, anterior, and apical mancilla. Normal left ventricular wall thickness. Impaired diastolic relaxation Grade I. Ejection fraction is visually estimated at 40 %. Normal right ventricular size. Normal right ventricular systolic function. Normal structure of the mitral valve. Trivial regurgitation of the mitral valve. Normal structure of the tricuspid valve. Trivial regurgitation in the tricuspid valve. Assessment and Plan: 60 y.o. male 60 yo M with previous CAD and PCI to the LAD who presented after a procedure with chest pain and was found to have 100% proximal stenosis of the LAD with evangelical of flow. An IABP wasplaced. He is stable for now without chest pain ?? Plan: - EF 40% on echo, no valvular abnormalities - Continue IABP - Need the images from [employer] uploaded to [employer]/PACS - evaluation this AM prior to OR Plan OR for second case today Laly Lopes MD Cardiothoracic Surgery [facility] Cosigned by Rhina Granados MD at 05/04/2021 12:27 PM STAFF FORESTER F FORESTER F FORESTER * Ochoa Encinas MD - 05/03/2021 9:59 AM CST Cardiology Inpatient Progress Note [facility] SUBJECTIVE: Pt had no acute events overnight. He denies any chest pain. OBJECTIVE: Vitals: 05/03/21 0745 05/03/21 0800 05/03/21 0815 05/03/21 0830 BP: 128/59 128/58 124/65 96/51 Pulse: 92 84 82 84 Resp: 24 17 Temp: 36.8 ??C (98.2 ??F) TempSrc: Oral SpO2: 94% 94% 95% 96% Weight: Height: General: AOx3, No acute distress. Cardiac: RRR without murmur or gallop. Normal S1 and S2. No JVD. Vascular: Pulses are palpable in all extremities. No carotid bruits. Lungs: Clear to auscultation (B). Abdomen: Soft, NT/ND, +BS Ext: Warm without edema. No cyanosis or clubbing. ASSESSMENT/PLAN: 1. STEMI: -Cardiac cath on 05/01 with 40% distal LM; 100% prox LAD; 90% prox Cx; 50% prox and distal RCA -Left ventriculogram:??Moderate blanka-apical hypokinesis; echo on 05/02 with EF ~40% -PTCA of LAD done using 3.0, 3.5 balloon and of D1 using 1.5, 2.0, 2.5 balloons??and flow restored. -IABP inserted -CTS consulted with planned CABG on Friday 05/04 -Started on Integrilin and then stopped for hematuria and then restarted again -remains on IIb/IIIa and heparin 2. Dyslipidemia: -stable on Atorvastatin 80mg qday 3. Diabetes -stable on insulin per primary team 4. COPD: -stable without any acute issues ?? 5. PAD: -stable with medical management of risk factors 6. Recent bladder surgery/Hematuria/Anemia: -stable post 1u PRBC on 05/02 (Hgb 7.2 and now 10.7) -urine is still bloody but has improved -continue to monitor Ochoa Encinas MD, [facility] 05/03/2021 9:59 AM F FORESTER * Ainsley Rashid MD - 05/03/2021 9:36 AM CST Cardiothoracic Surgery Progress Note [facility] 1960 [facility] DAY#2 2 Days Post-Op s/p: Procedures: * PCI PTCA - MAJOR CORONARY * PCI PTCA EA ADDTN'L BRANCH OF MAJOR CORONARY (+) * IABP INSERTION, PERCUTANEOUS [id number] Subjective: - no chest pain or SOB - Hematuria but responded to 1 unit pRBCs - Asking appropriate questions about surgery Objective Vitals: Temp: [36.4 ??C (97.5 ??F)-36.8 ??C (98.2 ??F)] 36.8 ??C (98.2 ??F) Pulse: [57-109] 84 BP: (86-128)/(37-91) 96/51 Resp: [8-28] 17 SpO2: [76 %-98 %] 96 % Wt Readings from Last 3 Encounters: 05/03/21 91.8 kg (202 lb 4.8 oz) 08/27/13 114.3 kg (252 lb) 10/19/12 111.6 kg (246 lb) I/O last 2 completed shifts: In: 1506.5 [I.V.:1106.5; Blood:300; IV Piggyback:100] Out: 3340 [Urine:3340] Physical Exam Alert, oriented, no distress Normocephalic Regular rate, nl s1/s2 cta b/l no wheezing allens test normal on left hand (right hand-dominant) WWP, palpable AT pulses Recent Labs Lab Units 05/03/2141805/02/21193405/02/21 1512 WBC K/cumm 16.4* 16.5* 14.7* HEMOGLOBIN g/dL 10.7* 10.4* 7.2* HEMATOCRIT % 31.0* 30.7* 21.4* PLATELETS K/cumm 321 317 242 Recent Labs Lab Units 05/03/2141805/02/21193405/02/21 0443 SODIUM mmol/L 136 135 135 POTASSIUM PLASMA mmol/L 4.0 3.6 3.3 CHLORIDE mmol/L 105 103 106 CO2 mmol/L 19* 21* 21* BUN SERUM mg/dL 6* 6* 8 CREATININE mg/dL 0.51* 0.60* 0.60* CALCIUM mg/dL 8.6 8.4* 8.4* Recent Labs Lab Units 05/03/2141805/02/21 1100 05/02/21 0032 05/01/21221805/01/212218 PROTIME (PT) sec -- -- -- -- 14.5* INR -- -- -- -- 1.3* APTT sec 64* 61* 70* < > 82* < > = values in this interval not displayed. Recent Labs Lab Units 05/01/219 PH ART 7.35 PCO2 ART mmHg 37 PO2 ART mmHg 31* BASE EXC ART mmol/L -5 Drips: Heparin integrilin Echo: CONCLUSIONS: Technically difficult study with limited views. Normal left ventricular size. Left ventricle not well visualized. There is severe hypokinesis of the mid anteroseptal, anterior, and apical mancilla. Normal left ventricular wall thickness. Impaired diastolic relaxation Grade I. Ejection fraction is visually estimated at 40 %. Normal right ventricular size. Normal right ventricular systolic function. Normal structure of the mitral valve. Trivial regurgitation of the mitral valve. Normal structure of the tricuspid valve. Trivial regurgitation in the tricuspid valve. Assessment and Plan: 60 y.o. male 60 yo M with previous CAD and PCI to the LAD who presented after a procedure with chest pain and was found to have 100% proximal stenosis of the LAD with evangelical of flow. An IABP wasplaced. He is stable for now without chest pain ?? Plan: - EF 40% on echo, no valvular abnormalities - Continue IABP - Trend Hg for hematuria - Continue hep gtt, hold Integrilin at 8am tomorrow - NPO midnight - Order 4 units pRBC, 2 FFP 2 plt for OR hold tomorrow - Consent to be obtained today - Need the images from [employer] uploaded to [employer]/PACS - Posted for OR tomorrow - Baseline Hg A1C 13% Ainsley Rashid MD Cardiothoracic Surgery [facility] Cosigned by Alex Blanco MD PhD at 05/11/2021 4:20 PM STAFF FORESTER F FORESTER F FORESTER F FORESTER Associated attestation - Alex Blanco MD PhD - 05/11/2021 4:20 PM STAFF FORESTER I have seen and examined the patient on 05/03/2021. I personally reviewed labs, radiology studies, diagnostic tests, and device settings from the last 24 hours and agree with the findings and assessment documented by CT surgery Fellow who signed above. My assessment and plan regarding mechanical circulatory support are as stated above with the deviceinterrogation information. * Frank Dugan MD - 05/03/2021 9:24 AM CST Images from the original note were not included. Critical Care Medicine Daily Progress Team: pink Subjective Interval events: No issues overnight, chronic back pain better controlled on current pain regimen. Persisting hematuria but urine appears news reporter in color. Hemoglobin stable post transfusion. O2 sats98% on 2 L nasal cannula with normal work of breathing. Hemodynamically stable, IABP remains in place, right groin areas soft and dressing intact. Distal lower extremities pulses palpable 05/02/2021: NAJMA. Only complaints are of back pain from lying in bed. No chest pain shortness of breath, orthopnea, abdominal pain, n/v/d. Plan for CABG on Tuesday. HPI Ms. Elias is a 60-year-old gentleman with a history of coronary artery disease status post multiple PCIs with stent placement. He awoke yesterday morning unable to void and was found to have hematuria for which she underwent what sounds to be a cystoscopy and a Osorio catheter was placed. He was discharged home and developed chest pain and shortness of breath. He presented to an outside hospital and was found to have EKG findings concerning for myocardial infarction. He was subsequently transferred to the cardiac catheterization lab here at [facility] where he underwent coronary angiography via right common femoral artery which demonstrated an LAD multiple stenoses and underwent PTCA of the LAD and diagonal. Left ventriculogram demonstrated moderate anteroapical hypokinesis. The case was discussed with Dr. Granados. An intra-aortic balloon pump was placed via the right common femoral access in demonstrates good augmentation on bedside exam. He was started on Integrilin and heparin drips and transferred to the ICU for planned CABG on Tuesday. ?? Currently the patient states his chest pain is resolved and he denies shortness of breath. His onlycomplaint is some back pain which she states is chronic for him when he lays down. He does not usually take anything for this at home. He denies any nausea, shortness of breath, or change in bowel habits. Scheduled Medications: aspirin, 324 mg, oral, Daily atorvastatin, 80 mg, oral, Daily insulin glargine, 0.15 Units/kg, subcutaneous, Nightly insulin lispro, 0-4 Units, subcutaneous, Nightly insulin lispro, 0-5 Units, subcutaneous, TID with meals insulin lispro, 0.05 Units/kg, subcutaneous, TID with meals lidocaine, 2 patch, transdermal, Daily metoprolol tartrate, 12.5 mg, oral, BID pantoprazole DR, 40 mg, oral, Daily ramelteon, 8 mg, oral, Nightly senna-docusate, 1 tablet, oral, Nightly traZODone, 50 mg, oral, Nightly Continuous Medications: eptifibatide, 2 mcg/kg/min, Last Rate: 2 mcg/kg/min (05/03/21 045) heparin, 0-33 Units/kg/hr, Last Rate: 11.6 Units/kg/hr (05/02/211811) sodium chloride 0.9%, 50 mL/hr, Last Rate: 50 mL/hr (05/02/21 234) PRN Medications: ??? acetaminophen ??? dextrose OR dextrose ??? glucagon ??? heparin OR heparin ??? ondansetron ??? oxyCODONE Objective Vitals: Most Recent: Vitals: 05/03/21 0830 BP: 96/51 Pulse: 84 Resp: 17 Temp: SpO2: 96% Vitals: 05/03/21 0745 05/03/21 0800 05/03/21 0815 05/03/21 0830 BP: 128/59 128/58 124/65 96/51 Pulse: 92 84 82 84 Resp: Temp: 36.8 ??C (98.2 ??F) TempSrc: Oral SpO2: 94% 94% 95% 96% Weight: Height: 24hr Min/Max: Temp Min: 36.4 ??C (97.5 ??F) Max: 36.8 ??C (98.2 ??F) Pulse Min: 57 Max: 109 BP Min: 86/56 Max: 128/58 Resp Min: 8 Max: 28 SpO2 Min: 76 % Max: 98 % LDA: Arterial Sheath 8 Fr. Right Femoral (Active) Placement Date/Time: 05/01/21 1730 Catheter Time Out Checklist Completed: Yes Hand Hygiene Performed: Yes Site Prep: Alcohol;Chlorhexidine Site Prep Agent has Completely Dried Before Insertion: Yes All 5 Sterile Barriers or Appropriate Barriers ... Number of days: 0 IABP 8.0 Fr. 50 mL (Active) Placement Date/Time: 05/01/211833 Insertion Site: Right femoral Sutured: Yes Catheter/Balloon Size: 8.0 Fr. Balloon/ Catheter Volume: 50 mL Verification by X-ray: Yes Number of days: 0 Urethral Catheter Straight-tip (Active) Placement Date: 04/30/21 Inserted by: inserted by urologist at [facility] Placed by External Staff?: Other hospital Catheter Type: Straight-tip Catheter Balloon Size: 10 mL Urine Returned: (c) Yes Number of days: 2 Vent settings: I/O: Date 05/02/21 0700 - 05/03/21 0659 05/03/21 07 - 05/04/21 0659 Shift 9851-6856 7055-3674 24 Hour Total 8080-5658 3129-6165 24 Hour Total INTAKE P.O. 0 0 I.V.(mL/kg) 831.3(9) 275.2(3) 1106.5(12.1) Blood 300 300 IV Piggyback 100 100 Shift Total(mL/kg) 1131.3(12.3) 375.2(4.1) 1506.5(16.4) OUTPUT Urine(mL/kg/hr) 1610(1.5) 1730(1.6) 3340(1.5) 120 120 Shift Total(mL/kg) 1610(17.5) 1730(18.9) 3340(36.4) 120(1.3) 120(1.3) NET -478.7 -1354.8 -1833.5 -120 -120 Weight (kg) 92 91.8 91.8 91.8 91.8 91.8 Physical Exam: Gen: Asleep in bed but easily arousable afebrile anicteric. HEENT: NC/AT, PERRLA, EOMI Neck: Supple, Trachea Midline CV: NSR, S1 and S2, Distal pulses intact, Warm periphery, cap refill < 3 seconds Pulm: CTAB Abd: Soft, Nontender, hypoactive BS : Gross hematuria Osorio in place Ext: No edema noted. RLE pulses intact Skin: Warm, Dry Neuro: Nonfocal neurological exam Psych: Normal mood, appropriate insight Lab/Radiology/Diagnostic Review: Laboratory review: Lab results in the last 24 hours: Recent Results (from the past 24 hour(s)) aPTT Collection Time: 05/02/21 11:00 AM Result Value Ref Range aPTT 61 (H) 27 - 37 sec COVID-19 Coronavirus RNA Nasopharyngeal Collection Time: 05/02/21 11:00 AM Specimen: Nasopharyngeal Result Value Ref Range COVID-19 RNA Negative Negative First COVID-19 test? Yes Employeed in healthcare? No Group care resident? No Hospitalized? Yes Is patient in ICU? Yes Symptomatic as defined by CDC? No POCT glucose Collection Time: 05/02/21 11:03 AM Result Value Ref Range Glucose, POC 110 70 - 199 mg/dL CBC without differential Collection Time: 05/02/21 3:12 PM Result Value Ref Range WBC 14.7 (H) 3.8 - 9.9 K/cumm Hgb 7.2 (L) 13.0 - 17.5 g/dL Hct 21.4 (L) 38.9 - 50.3 % Plt 242 150 - 400 K/cumm MPV 11.6 9.1 - 12.3 fL RBC 2.27 (L) 4.30 - 5.80 M/cumm MCV 94.3 81.3 - 96.4 fL MCH 31.7 27.1 - 33.3 pg MCHC 33.6 32.3 - 35.7 g/dL RDW CV 13.6 11.1 - 14.9 % RDW SD 46.9 35.7 - 48.1 fL NRBC abs 0.00 0.00 - 0.01 K/cumm Prepare RBC: 1 Units Collection Time: 05/02/21 3:27 PM Result Value Ref Range Product code S8590M17 Unit Number [id number] Product Blood Type APOS Dispense Status PRESUMED TRANSFUSED POCT glucose Collection Time: 05/02/21 5:23 PM Result Value Ref Range Glucose, POC 102 70 - 199 mg/dL CBC without differential Collection Time: 05/02/21 7:35 PM Result Value Ref Range WBC 16.5 (H) 3.8 - 9.9 K/cumm Hgb 10.4 (L) 13.0 - 17.5 g/dL Hct 30.7 (L) 38.9 - 50.3 % Plt 317 150 - 400 K/cumm MPV 11.9 9.1 - 12.3 fL RBC 3.38 (L) 4.30 - 5.80 M/cumm MCV 90.8 81.3 - 96.4 fL MCH 30.8 27.1 - 33.3 pg MCHC 33.9 32.3 - 35.7 g/dL RDW CV 14.0 11.1 - 14.9 % RDW SD 47.1 35.7 - 48.1 fL NRBC abs 0.00 0.00 - 0.01 K/cumm Basic metabolic panel Collection Time: 05/02/21 7:35 PM Result Value Ref Range Sodium 135 135 - 145 mmol/L Potassium, pl 3.6 3.3 - 4.9 mmol/L Chloride 103 97 - 110 mmol/L CO2 21 (L) 22 - 32 mmol/L Anion gap 11 2 - 15 mmol/L BUN 6 (L) 8 - 25 mg/dL Creatinine 0.60 (L) 0.80 - 1.30 mg/dL Glucose 148 70 - 199 mg/dL Calcium 8.4 (L) 8.5 - 10.3 mg/dL Magnesium Collection Time: 05/02/21 7:35 PM Result Value Ref Range Magnesium 1.6 1.4 - 2.5 mg/dL eGFR Collection Time: 05/02/21 7:35 PM Result Value Ref Range eGFR 110 mL/min/1.73 m2 Phosphorus Collection Time: 05/03/21 4:19 AM Result Value Ref Range Phosphorus, pl 3.1 2.3 - 4.5 mg/dL Magnesium Collection Time: 05/03/21 4:19 AM Result Value Ref Range Magnesium 1.7 1.4 - 2.5 mg/dL Comprehensive metabolic panel Collection Time: 05/03/21 4:19 AM Result Value Ref Range Sodium 136 135 - 145 mmol/L Potassium, pl 4.0 3.3 - 4.9 mmol/L Chloride 105 97 - 110 mmol/L CO2 19 (L) 22 - 32 mmol/L Anion gap 12 2 - 15 mmol/L BUN 6 (L) 8 - 25 mg/dL Creatinine 0.51 (L) 0.80 - 1.30 mg/dL Glucose 115 70 - 199 mg/dL Calcium 8.6 8.5 - 10.3 mg/dL Bilirubin, total 0.4 0.1 - 1.2 mg/dL Protein, pl 5.8 (L) 6.5 - 8.5 g/dL Albumin 3.2 (L) 3.5 - 5.0 g/dL Alk phos 70 40 - 130 Units/L ALT 23 7 - 55 Units/L AST 98 (H) 10 - 50 Units/L CBC without differential Collection Time: 05/03/21 4:19 AM Result Value Ref Range WBC 16.4 (H) 3.8 - 9.9 K/cumm Hgb 10.7 (L) 13.0 - 17.5 g/dL Hct 31.0 (L) 38.9 - 50.3 % Plt 321 150 - 400 K/cumm MPV 11.7 9.1 - 12.3 fL RBC 3.41 (L) 4.30 - 5.80 M/cumm MCV 90.9 81.3 - 96.4 fL MCH 31.4 27.1 - 33.3 pg MCHC 34.5 32.3 - 35.7 g/dL RDW CV 14.6 11.1 - 14.9 % RDW SD 48.8 (H) 35.7 - 48.1 fL NRBC abs 0.00 0.00 - 0.01 K/cumm Hemoglobin A1c Collection Time: 05/03/21 4:19 AM Result Value Ref Range Hgb A1C 13.5 (H) 4.0 - 5.6 % Estimated Average Glucose 341 mg/dL aPTT Collection Time: 05/03/21 4:19 AM Result Value Ref Range aPTT 64 (H) 27 - 37 sec eGFR Collection Time: 05/03/21 4:19 AM Result Value Ref Range eGFR 118 mL/min/1.73 m2 POCT glucose Collection Time: 05/03/21 7:36 AM Result Value Ref Range Glucose, POC 104 70 - 199 mg/dL ECHO CONCLUSIONS: Technically difficult study with limited views. Normal left ventricular size. Left ventricle not well visualized. There is severe hypokinesis of the mid anteroseptal, anterior, and apical mancilla. Normal left ventricular wall thickness. Impaired diastolic relaxation Grade I. Ejection fraction is visually estimated at 40 %. Normal right ventricular size. Normal right ventricular systolic function. Normal structure of the mitral valve. Trivial regurgitation of the mitral valve. Normal structure of the tricuspid valve. Trivial regurgitation in the tricuspid valve. Electronically Signed By: Rylee Brito, , FACC, VILMA, FAISAL 2021-05-02 14:07:25 STAFF FORESTER XR Chest 1 Vw Portable Result Date: 05/02/2021 1. Appropriately positioned intra-aortic balloon pump. 2. Similar mixed reticular and alveolar opacities most notable in the bilateral upper lobes and perihilar region. Electronically signed by: Richard Lopez II, D.O. XR Chest 1 Vw Portable Result Date: 05/02/2021 Mixed reticular and alveolar opacities are demonstrated in all lung lobes but demonstrate an upper lobe and perihilar predominance. Findings may represent pulmonary edema on background of centrilobular emphysematous changes. Electronically signed by: Richard Lopez II, D.O. Plan: Neuro: #Acute on chronic pain - PRN oxycodone 5mg q4h - delirium/fall precautions - continue to ensure adequate sleep hygiene CV: Anterior STEMI s/p PTCA to LAD - rethrombosis of existing stents - IABP - ASA, Integrilin, heparin gtt - CABG 05/04 - Echo done 05/02 EF 40% Pulmonary: - no acute pulm issues - CXR with IABP in good position, lungs clear -maintain O2 sats greater than 92% - incentive spirometry p.r.n. GI/Nutrition: Diet: cardiac - Dietitian following PUD PPx: not indicated Bowel regimen: pericolace - PPI Endocrine: Poorly controlled diabetes Hemoglobin A1c 13.5 SSI lantus 13 Renal: - Cr 0.6 - UOP adequate - keep Osorio catheter for strict, accurate I/Os, when applicable will discontinue Osorio catheter per the HOUDINI protocol - trend renal function, avoid nephrotoxins, renal dose medications - optimize electrolytes with caution to renal function -goal K ~4, Mg > 2.2, phos > 3, iCAL > 4.5 -provide supplement as needed -AM BMP and electrolytes check Heme/Oncology: - Transfuse for hgb < 8 - CBC in am -hep gtt, PTT goal 60-90 DVT PPX: SCD's, hep gtt ID: Afebrile - Leukocytosis, likely reactive - trend - Monitor fever curve Musculoskeletal/Skin: High risk for skin breakdown given immobilization - skin care per unit protocol - PT/OT per post MT/CTS protocol ICU standards of care: Restraints: n/a Physical therapy/Activity: bedrest (IABP) Access: PIV, R fem arterial sheath Family communication: none at bedside. Will update as available. Patient updated as per his currentclinical status and ongoing plan of care. He he is talked extensively with CTS and aware will be going for CABG tomorrow Goals of care: Full code Frank Dugan MD [phone] [facility] F FORESTER * Lulú Garcia MD - 05/03/2021 8:21 AM CST Daily Progress SUBJECTIVE: Interval History: Laying in bed, appears in no acute distress. No complaints of chest pain, shortness of breath, nausea, vomiting, abdominal pain, etc. Is having hematuria. OBJECTIVE: Vitals: 24hr Min/Max: Temp Min: 36.4 ??C (97.5 ??F) Max: 36.7 ??C (98.1 ??F) Pulse Min: 57 Max: 101 BP Min: 86/56 Max: 126/54 Resp Min: 8 Max: 28 SpO2 Min: 76 % Max: 98 % Most Recent : Vitals: 05/03/21 0615 05/03/21 0630 05/03/21 0645 05/03/21 0700 BP: 106/53 126/54 107/59 114/56 Pulse: 82 78 75 82 Resp: 12 20 19 Temp: TempSrc: SpO2: 95% 95% 97% 97% Weight: Height: I/O last 2 completed shifts: In: 1506.5 [I.V.:1106.5; Blood:300; IV Piggyback:100] Out: 3340 [Urine:3340] No intake/output data recorded. Current Facility-Administered Medications Medication Dose Route Frequency Provider Last Rate Last Admin ??? acetaminophen (TYLENOL) tablet 1,000 mg 1,000 mg oral Q6H PRN Wally Aguilar DO 1,000 mg at 05/02/212025 ??? aspirin chewable tablet 324 mg 324 mg oral Daily Nalini Clayton MD 324 mg at 05/03/21 0746 ??? atorvastatin (LIPITOR) tablet 80 mg 80 mg oral Daily Nalini Clayton MD 80 mg at 05/03/21 0746 ??? dextrose oral liquid liquid 15 g 15 g oral Q15 Min PRN Wally Aguilar, DO Or ??? dextrose (D10W) 10% bolus 250 mL 250 mL intravenous Q15 Min PRN Wally Aguilar, DO ??? eptifibatide (INTEGRILIN) 0.75 mg/mL infusion 2 mcg/kg/min intravenous Continuous Joe Weinberg MD 13.79 mL/hr at 05/03/21 0457 2 mcg/kg/min at 05/03/21 0457 ??? glucagon injection 1 mg 1 mg intramuscular Q30 Min PRN Wally Aguilar, DO ??? heparin 1,000 unit/mL injection 2,000 Units 2,000 Units intravenous Q6H PRN Nalini Clayton MD Or ??? heparin 1,000 unit/mL injection 3,000 Units 3,000 Units intravenous Q6H PRN Nalini Clayton MD ??? heparin in 0.45% sodium chloride 25,000 units/250 mL (100 units/mL) infusion (premix) 0-33 Units/kg/hr intravenous Titrated Nalini Clayton MD 10 mL/hr at 05/02/211811 11.6 Units/kg/hr at ??? insulin glargine (LANTUS, SEMGLEE) 100 unit/mL injection 13 Units 0.15 Units/kg subcutaneous Nightly Wally Aguilar, DO 13 Units at 05/02/212037 ??? insulin lispro (HumaLOG, ADMELOG) 100 unit/mL injection 0-4 Units 0-4 Units subcutaneous Nightly Wally Aguilar, DO ??? insulin lispro (HumaLOG, ADMELOG) 100 unit/mL injection 0-5 Units 0-5 Units subcutaneous TID with meals Wally Aguilar, DO ??? insulin lispro (HumaLOG, ADMELOG) 100 unit/mL injection 4 Units 0.05 Units/kg subcutaneous TID with meals Wally Aguilar, DO ??? lidocaine (LIDODERM) 5 % patch 2 patch 2 patch transdermal Daily Joe Weinberg MD Medication Removed at 05/03/21 0154 ??? metoprolol tartrate (LOPRESSOR) immediate release tablet 12.5 mg 12.5 mg oral BID Nalini Clayton MD 12.5 mg at 05/03/21 0747 ??? ondansetron (ZOFRAN) injection 4 mg 4 mg intravenous Q6H PRN Erika Suárez NP ??? oxyCODONE (ROXICODONE) tablet 5 mg 5 mg oral Q4H PRN Wally Aguilar, DO 5 mg at 05/02/21 0838 ??? pantoprazole DR (PROTONIX) extended release tablet 40 mg 40 mg oral Daily Wally Aguilar, DO 40 mg at 05/03/21 0746 ??? ramelteon (ROZEREM) tablet 8 mg 8 mg oral Nightly Balta Ahn MD 8 mg at 05/02/212025 ??? senna-docusate (PERICOLACE) 8.6-50 mg per tablet 1 tablet 1 tablet oral Nightly Wally Aguilar, DO 1 tablet at 05/02/212024 ??? sodium chloride 0.9% infusion 50 mL/hr intravenous Continuous Nalini Clayton MD 50 mL/hr at 05/02/213 50 mL/hr at 05/02/21 234 ??? traZODone (DESYREL) tablet 50 mg 50 mg oral Nightly Balta Ahn MD 50 mg at 05/02/212024 Physical Exam: General Appearance: Alert, cooperative, no distress, appears stated age, well developed, well nourished Head: Normocephalic, without obvious abnormality, atraumatic Eyes: Conjunctiva/corneas clear, EOM's intact, both eyes, anicteric Ears: Normal external ear canals, both ears Nose: Nares normal, septum midline, mucosa normal, no drainage Throat: Lips, mucosa, and tongue normal; mucous membranes moist Neck: Supple Lungs: Clear to auscultation bilaterally, respirations unlabored Cardiovascular: Regular rate and rhythm Abdomen: Soft, non-tender, bowel sounds decr, non-distended Extremities: Extremities normal, atraumatic, no cyanosis or edema Skin: Skin color, texture, turgor normal, no rashes Psychosocial: Normal affect and mood ASSESSMENT/PLAN: 1. Acute anterior wall MT on admission. Admission troponins were 5852, 7281, 7050, 6777, with deltaof 24, 20, 16. Status post cardiac catheterization on 05/01/2021 with PTCA of LAD done using 3.0, 3.5 balloon and of diagnol using 1.5, 2.0, 2.5 balloons and flow restored. Status post IABP on 05/01/2021. CTS service consulted, plan for CABG tomorrow. On aspirin, statin, metoprolol. 2. Hematuria, in the setting of recent bladder mass resection, and patient being on Integrilin, aspirin, for CAD and IABP. Urology consulted. 3. CAD, status post LAD stent on 02/06/2010, per Care everywhere. 4. Bladder tumor resection at [facility], on 04/30/2021, per patient report. 5. Hypertension. Blood pressure controlled. On metoprolol. 6. Hyperlipidemia. On statin. 7. Type 2 diabetes. On Lantus, sliding-scale insulin. 8. PVD. No ABIs or AIF available for review. 9. Tobacco use. 10. Vitamin-D deficiency. 11. Leukocytosis of 16.4, follow. 12. Anemia with hemoglobin of 10.7, follow. 13. Slight hyponatremia, resolved. 14. Prophylaxis. Protonix, SCDs. F FORESTER * Balta Ahn MD - 05/02/2021 1:24 PM CST Images from the original note were not included. Critical Care Medicine Daily Progress Team: pink Subjective Interval events: NAJMA. Only complaints are of back pain from lying in bed. No chest pain shortness of breath, orthopnea, abdominal pain, n/v/d. Plan for CABG on Tuesday. HPI Ms. Elias is a 60-year-old gentleman with a history of coronary artery disease status post multiple PCIs with stent placement. He awoke yesterday morning unable to void and was found to have hematuria for which she underwent what sounds to be a cystoscopy and a Osorio catheter was placed. He was discharged home and developed chest pain and shortness of breath. He presented to an outside hospital and was found to have EKG findings concerning for myocardial infarction. He was subsequently transferred to the cardiac catheterization lab here at [facility] where he underwent coronary angiography via right common femoral artery which demonstrated an LAD multiple stenoses and underwent PTCA of the LAD and diagonal. Left ventriculogram demonstrated moderate anteroapical hypokinesis. The case was discussed with Dr. Granados. An intra-aortic balloon pump was placed via the right common femoral access in demonstrates good augmentation on bedside exam. He was started on Integrilin and heparin drips and transferred to the ICU for planned CABG on Tuesday. ?? Currently the patient states his chest pain is resolved and he denies shortness of breath. His onlycomplaint is some back pain which she states is chronic for him when he lays down. He does not usually take anything for this at home. He denies any nausea, shortness of breath, or change in bowel habits. Scheduled Medications: aspirin, 324 mg, oral, Daily atorvastatin, 80 mg, oral, Daily insulin glargine, 0.15 Units/kg, subcutaneous, Nightly insulin lispro, 0-4 Units, subcutaneous, Nightly insulin lispro, 0-5 Units, subcutaneous, TID with meals insulin lispro, 0.05 Units/kg, subcutaneous, TID with meals lidocaine, 2 patch, transdermal, Daily metoprolol tartrate, 12.5 mg, oral, BID pantoprazole DR, 40 mg, oral, Daily senna-docusate, 1 tablet, oral, Nightly Continuous Medications: heparin, 0-33 Units/kg/hr, Last Rate: 11.601 Units/kg/hr (05/01/21 2204) sodium chloride 0.9%, 50 mL/hr, Last Rate: 50 mL/hr (05/02/21 0049) PRN Medications: ??? acetaminophen ??? dextrose OR dextrose ??? glucagon ??? heparin OR heparin ??? ondansetron ??? oxyCODONE Objective Vitals: Most Recent: Vitals: 05/02/21 1300 BP: 96/49 Pulse: 90 Resp: 18 Temp: SpO2: (!) 89% 24hr Min/Max: Temp Min: 36.5 ??C (97.7 ??F) Max: 36.7 ??C (98.1 ??F) Pulse Min: 57 Max: 90 BP Min: 85/46 Max: 119/53 Resp Min: 0 Max: 28 SpO2 Min: 83 % Max: 97 % LDA: Arterial Sheath 8 Fr. Right Femoral (Active) Placement Date/Time: 05/01/21 1730 Catheter Time Out Checklist Completed: Yes Hand Hygiene Performed: Yes Site Prep: Alcohol;Chlorhexidine Site Prep Agent has Completely Dried Before Insertion: Yes All 5 Sterile Barriers or Appropriate Barriers ... Number of days: 0 IABP 8.0 Fr. 50 mL (Active) Placement Date/Time: 05/01/21 1834 Insertion Site: Right femoral Sutured: Yes Catheter/Balloon Size: 8.0 Fr. Balloon/ Catheter Volume: 50 mL Verification by X-ray: Yes Number of days: 0 Urethral Catheter Straight-tip (Active) Placement Date: 04/30/21 Inserted by: inserted by urologist at [facility] Placed by External Staff?: Other hospital Catheter Type: Straight-tip Catheter Balloon Size: 10 mL Urine Returned: (c) Yes Number of days: 2 Vent settings: I/O: Date 05/01/21 07 - 05/02/21 0659 05/02/21 07 - 05/03/21 0659 Shift 0330-5712 8107-6633 24 Hour Total 2383-9652 0606-9924 24 Hour Total INTAKE P.O. 500 500 I.V.(mL/kg) 1900(20.7) 1900(20.7) 179.8(2) 179.8(2) Shift Total(mL/kg) 2400(26.1) 2400(26.1) 179.8(2) 179.8(2) OUTPUT Urine(mL/kg/hr) 1550(1.4) 1550(0.7) 1115 1115 Shift Total(mL/kg) 1550(16.8) 1550(16.8) 1115(12.1) 1115(12.1) NET 850 850 -935.2 -935.2 Weight (kg) 86.2 92 92 92 92 92 Physical Exam: Gen: anxious appearing man lying uncomfortably HEENT: NC/AT, PERRLA, EOMI Neck: Supple, Trachea Midline CV: NSR, S1 and S2, Distal pulses intact, Warm periphery, cap refill < 3 seconds Pulm: CTAB Abd: Soft, Nontender, hypoactive BS : Osorio with yellow, clear urine Ext: No edema noted. RLE pulses intact Skin: Warm, Dry Neuro: neuro intact Lab/Radiology/Diagnostic Review: Laboratory review: Lab results in the last 24 hours: Recent Results (from the past 24 hour(s)) POCT glucose Collection Time: 05/01/21 7:10 PM Result Value Ref Range Glucose, POC 176 70 - 199 mg/dL POCT glucose Collection Time: 05/01/21 9:42 PM Result Value Ref Range Glucose, POC 182 70 - 199 mg/dL Troponin T high-sensitivity series (baseline, 2hr, 4hr, 6hr) Collection Time: 05/01/21 10:19 PM Result Value Ref Range Trop T hs 5,852 (Critical) <=22 ng/L Phosphorus Collection Time: 05/01/21 10:19 PM Result Value Ref Range Phosphorus, pl 3.4 2.3 - 4.5 mg/dL Magnesium Collection Time: 05/01/21 10:19 PM Result Value Ref Range Magnesium 1.6 1.4 - 2.5 mg/dL Comprehensive metabolic panel Collection Time: 05/01/21 10:19 PM Result Value Ref Range Sodium 134 (L) 135 - 145 mmol/L Potassium, pl 4.0 3.3 - 4.9 mmol/L Chloride 103 97 - 110 mmol/L CO2 19 (L) 22 - 32 mmol/L Anion gap 12 2 - 15 mmol/L BUN 9 8 - 25 mg/dL Creatinine 0.63 (L) 0.80 - 1.30 mg/dL Glucose 157 70 - 199 mg/dL Calcium 8.1 (L) 8.5 - 10.3 mg/dL Bilirubin, total 0.3 0.1 - 1.2 mg/dL Protein, pl 5.5 (L) 6.5 - 8.5 g/dL Albumin 3.2 (L) 3.5 - 5.0 g/dL Alk phos 64 40 - 130 Units/L ALT 28 7 - 55 Units/L AST 245 (H) 10 - 50 Units/L Calcium, ionized Collection Time: 05/01/21 10:19 PM Result Value Ref Range Ca, ionized, bld 4.62 4.60 - 5.20 mg/dL Ca, ionized, bld, calc 4.50 (L) 4.60 - 5.20 mg/dL Blood gas, arterial Collection Time: 05/01/21 10:19 PM Result Value Ref Range pH, Art 7.35 7.35 - 7.45 PCO2, Arterial 37 35 - 45 mmHg PO2, Arterial 31 (Critical) 83 - 108 mmHg HCO3 Art (Calculated) 20 20 - 30 mmol/L BE, art -5 mmol/L O2 Sat Art (Measured) 54 (L) 90 - 95 % CBC with auto differential Collection Time: 05/01/21 10:19 PM Result Value Ref Range WBC 15.7 (H) 3.8 - 9.9 K/cumm Hgb 9.4 (L) 13.0 - 17.5 g/dL Hct 28.2 (L) 38.9 - 50.3 % Plt 312 150 - 400 K/cumm MPV 12.0 9.1 - 12.3 fL RBC 2.95 (L) 4.30 - 5.80 M/cumm MCV 95.6 81.3 - 96.4 fL MCH 31.9 27.1 - 33.3 pg MCHC 33.3 32.3 - 35.7 g/dL RDW CV 13.2 11.1 - 14.9 % RDW SD 46.6 35.7 - 48.1 fL NRBC abs 0.00 0.00 - 0.01 K/cumm Pro B-type natriuretic peptide Collection Time: 05/01/21 10:19 PM Result Value Ref Range NT-proBNP 168 <=300 pg/mL Protime-INR Collection Time: 05/01/21 10:19 PM Result Value Ref Range PT 14.5 (H) 9.5 - 13.6 sec INR 1.3 (H) 0.9 - 1.2 aPTT Collection Time: 05/01/21 10:19 PM Result Value Ref Range aPTT 82 (H) 27 - 37 sec Differential, auto Collection Time: 05/01/21 10:19 PM Result Value Ref Range Neutrophil abs 11.5 (H) 1.7 - 6.5 K/cumm Imm gran abs 0.1 0.0 - 0.1 K/cumm Lymphocyte abs 2.4 0.8 - 3.3 K/cumm Monocyte abs 1.5 (H) 0.2 - 0.8 K/cumm Eosinophil abs 0.1 0.0 - 0.5 K/cumm Basophil abs 0.1 0.0 - 0.1 K/cumm Neutrophil pct 73.4 % Imm gran pct 0.4 % Lymphocyte pct 15.5 % Monocyte pct 9.8 % Eosinophil pct 0.6 % Basophil pct 0.3 % eGFR Collection Time: 05/01/21 10:19 PM Result Value Ref Range eGFR 108 mL/min/1.73 m2 Lipid panel Collection Time: 05/02/21 12:32 AM Result Value Ref Range Cholesterol 139 30 - 199 mg/dL Triglycerides 105 <=149 mg/dL HDL 33 (L) >=40 mg/dL LDL, calculated 85 <=129 mg/dL Non-HDL Cholesterol 106 mg/dL Chol/HDL ratio 4 Type and screen Collection Time: 05/02/21 12:32 AM Result Value Ref Range ABO Rh A Positive [place], indirect Negative aPTT Collection Time: 05/02/21 12:32 AM Result Value Ref Range aPTT 70 (H) 27 - 37 sec Troponin T high-sensitivity 2-hour Collection Time: 05/02/21 12:32 AM Result Value Ref Range Trop T hs 7,281 (Critical) <=22 ng/L Trop T hs pct delta 24 (Critical) % Trop T hs interp Significant (Critical) Troponin T high-sensitivity 4-hour Collection Time: 05/02/21 2:34 AM Result Value Ref Range Trop T hs 7,050 (Critical) <=22 ng/L Trop T hs pct delta 20 (Critical) % Trop T hs interp Significant (Critical) CBC without differential Collection Time: 05/02/21 4:43 AM Result Value Ref Range WBC 18.3 (H) 3.8 - 9.9 K/cumm Hgb 9.6 (L) 13.0 - 17.5 g/dL Hct 29.3 (L) 38.9 - 50.3 % Plt 313 150 - 400 K/cumm MPV 11.5 9.1 - 12.3 fL RBC 3.09 (L) 4.30 - 5.80 M/cumm MCV 94.8 81.3 - 96.4 fL MCH 31.1 27.1 - 33.3 pg MCHC 32.8 32.3 - 35.7 g/dL RDW CV 13.3 11.1 - 14.9 % RDW SD 46.5 35.7 - 48.1 fL NRBC abs 0.00 0.00 - 0.01 K/cumm Basic metabolic panel Collection Time: 05/02/21 4:43 AM Result Value Ref Range Sodium 135 135 - 145 mmol/L Potassium, pl 3.3 3.3 - 4.9 mmol/L Chloride 106 97 - 110 mmol/L CO2 21 (L) 22 - 32 mmol/L Anion gap 8 2 - 15 mmol/L BUN 8 8 - 25 mg/dL Creatinine 0.60 (L) 0.80 - 1.30 mg/dL Glucose 106 70 - 199 mg/dL Calcium 8.4 (L) 8.5 - 10.3 mg/dL Troponin T high-sensitivity 6-hour Collection Time: 05/02/21 4:43 AM Result Value Ref Range Trop T hs 6,777 (Critical) <=22 ng/L Trop T hs pct delta 16 % Trop T hs interp Equivocal eGFR Collection Time: 05/02/21 4:43 AM Result Value Ref Range eGFR 110 mL/min/1.73 m2 POCT glucose Collection Time: 05/02/21 4:50 AM Result Value Ref Range Glucose, POC 106 70 - 199 mg/dL POCT glucose Collection Time: 05/02/21 8:31 AM Result Value Ref Range Glucose, POC 117 70 - 199 mg/dL aPTT Collection Time: 05/02/21 11:00 AM Result Value Ref Range aPTT 61 (H) 27 - 37 sec COVID-19 Coronavirus RNA Nasopharyngeal Collection Time: 05/02/21 11:00 AM Specimen: Nasopharyngeal Result Value Ref Range COVID-19 RNA Negative Negative First COVID-19 test? Yes Employeed in healthcare? No Group care resident? No Hospitalized? Yes Is patient in ICU? Yes Symptomatic as defined by CDC? No POCT glucose Collection Time: 05/02/21 11:03 AM Result Value Ref Range Glucose, POC 110 70 - 199 mg/dL XR Chest 1 Vw Portable Result Date: 05/02/2021 1. Appropriately positioned intra-aortic balloon pump. 2. Similar mixed reticular and alveolar opacities most notable in the bilateral upper lobes and perihilar region. Electronically signed by: Richard Lopez II, D.O. XR Chest 1 Vw Portable Result Date: 05/02/2021 Mixed reticular and alveolar opacities are demonstrated in all lung lobes but demonstrate an upper lobe and perihilar predominance. Findings may represent pulmonary edema on background of centrilobular emphysematous changes. Electronically signed by: Richard Lopez II, D.O. Plan: Neuro: #Acute on chronic pain - PRN oxycodone 5mg q4h CV: Anterior STEMI s/p PTCA to LAD - rethrombosis of existing stents - IABP - ASA, Integrilin - CABG 05/04 - Echo pending - hep gtt Pulmonary: - no acute pulm issues - CXR with IABP in good position, lungs clear GI: Diet: cardiac - Dietitian following PUD PPx: not indicated Bowel regimen: pericolace - PPI Endo: SSI lantus 13 Renal: - Cr 0.6 - UOP adequate - keep Osorio catheter for strict, accurate I/Os, when applicable will discontinue Osorio catheter per the HOUDINI protocol - trend renal function, avoid nephrotoxins, renal dose medications - optimize electrolytes with caution to renal function -goal K ~4, Mg > 2.2, phos > 3, iCAL > 4.5 -provide supplement as needed -AM BMP and electrolytes check Heme: - Transfuse for hgb < 7 - CBC in am -hep gtt, PTT goal 60-90 DVT PPX: SCD's, hep gtt ID: No acute issues ICU standards of care: Restraints: n/a Physical therapy/Activity: bedrest (IABP) Access: PIV, R fem arterial sheath Other: Goals of care: Full code Balta Ahn MD EM-Critical Care Fellow [phone] Cosigned by Frank Dugan MD at 05/02/2021 2:26 PM STAFF FORESTER F FORESTER F FORESTER * Joe Weinberg MD - 05/02/2021 12:42 PM CST [facility] Daily Progress SUBJECTIVE: Very stressed C/o l hip and back pain Denies Chest pain Questions about CABG answered OBJECTIVE: Vitals: 05/02/21 1045 05/02/21 1100 05/02/21 1115 05/02/21 1130 BP: 92/56 111/61 112/52 105/58 BP Location: Patient Position: Pulse: 57 75 71 74 Resp: Temp: TempSrc: SpO2: 93% 91% 92% 91% Weight: Height: Intake/Output Summary (Last 24 hours) at 05/02/2021 1242 Last data filed at 05/02/2021 0850 Gross per 24 hour Intake 2579.8 ml Output 2140 ml Net 439.8 ml Exam General appearance: Alert Neck: supple Lungs: CTA Heart: RRR Abdomen: soft Extremities: No edema , IABP in place , distal pulse palpable Current Facility-Administered Medications Medication Dose Route Frequency Last Rate Last Admin ??? acetaminophen (TYLENOL) tablet 1,000 mg 1,000 mg oral Q6H PRN 1,000 mg at 05/02/21 0006 ??? aspirin chewable tablet 324 mg 324 mg oral Daily 324 mg at 05/02/21 0837 ??? atorvastatin (LIPITOR) tablet 80 mg 80 mg oral Daily 80 mg at 05/02/21 0837 ??? dextrose oral liquid liquid 15 g 15 g oral Q15 Min PRN Or ??? dextrose (D10W) 10% bolus 250 mL 250 mL intravenous Q15 Min PRN ??? eptifibatide (INTEGRILIN) 0.75 mg/mL infusion 2 mcg/kg/min intravenous Continuous 13.79 mL/hr at 05/02/21 0620 2 mcg/kg/min at 05/02/21 0620 ??? glucagon injection 1 mg 1 mg intramuscular Q30 Min PRN ??? heparin 1,000 unit/mL injection 2,000 Units 2,000 Units intravenous Q6H PRN Or ??? heparin 1,000 unit/mL injection 3,000 Units 3,000 Units intravenous Q6H PRN ??? heparin in 0.45% sodium chloride 25,000 units/250 mL (100 units/mL) infusion (premix) 0-33 Units/kg/hr intravenous Titrated 10 mL/hr at 05/01/212203 11.601 Units/kg/hr at 05/01/212203 ??? insulin glargine (LANTUS, SEMGLEE) 100 unit/mL injection 13 Units 0.15 Units/kg subcutaneous Nightly 13 Units at 05/01/21 2147 ??? insulin lispro (HumaLOG, ADMELOG) 100 unit/mL injection 0-4 Units 0-4 Units subcutaneous Nightly ??? insulin lispro (HumaLOG, ADMELOG) 100 unit/mL injection 0-5 Units 0-5 Units subcutaneous TID with meals ??? insulin lispro (HumaLOG, ADMELOG) 100 unit/mL injection 4 Units 0.05 Units/kg subcutaneous TID with meals ??? lidocaine (LIDODERM) 5 % patch 2 patch 2 patch transdermal Daily ??? metoprolol tartrate (LOPRESSOR) immediate release tablet 12.5 mg 12.5 mg oral BID 12.5 mg at 05/02/21 0837 ??? ondansetron (ZOFRAN) injection 4 mg 4 mg intravenous Q6H PRN ??? oxyCODONE (ROXICODONE) tablet 5 mg 5 mg oral Q4H PRN 5 mg at 05/02/21 0838 ??? pantoprazole DR (PROTONIX) extended release tablet 40 mg 40 mg oral Daily 40 mg at 05/02/21 0838 ??? senna-docusate (PERICOLACE) 8.6-50 mg per tablet 1 tablet 1 tablet oral Nightly ??? sodium chloride 0.9% infusion 50 mL/hr intravenous Continuous 50 mL/hr at 05/02/21 0049 50 mL/hr at 05/02/21 0049 LABS: Recent Labs Lab Units 05/02/21 0443 WBC K/cumm 18.3* HEMOGLOBIN g/dL 9.6* HEMATOCRIT % 29.3* PLATELETS K/cumm 313 Recent Labs Lab Units 05/02/21 1103 05/02/21 0450 05/02/21 0443 05/01/21 2219 05/01/21 221 SODIUM mmol/L -- -- 135 < > 134* POTASSIUM PLASMA mmol/L -- -- 3.3 < > 4.0 CHLORIDE mmol/L -- -- 106 < > 103 CO2 mmol/L -- -- 21* < > 19* ANIONGAP mmol/L -- -- 8 < > 12 GLUCOSE mg/dL -- -- 106 < > 157 POC GLUCOSE MONITOR mg/dL 110 < > -- -- -- BUN SERUM mg/dL -- -- 8 < > 9 CREATININE mg/dL -- -- 0.60* < > 0.63* CALCIUM mg/dL -- -- 8.4* < > 8.1* ALBUMIN g/dL -- -- -- -- 3.2* ALK PHOS Units/L -- -- -- -- 64 ALT Units/L -- -- -- -- 28 AST Units/L -- -- -- -- 245* BILIRUBIN TOTAL mg/dL -- -- -- -- 0.3 < > = values in this interval not displayed. Recent Labs Lab Units 05/02/21 0032 CHOLESTEROL mg/dL 139 TRIGLYCERIDES mg/dL 105 HDL mg/dL 33* No results found for: BNP No results found for: TROPONINI No results found for: HGBA1C No results found for: TSH EKG: No results found for this or any previous visit. ASSESSMENT/PLAN: 1. STEMI Cardiac cath done from right Femoral artery Left main: 40% distal stenosisLeft anterior descendin% proximal stenosis. Left circumflex: 90% proximal stenosis. Right coronary artery:50% proximal, 50% distal stenosis Left ventriculogram: Moderate blanka-apical hypokinesisPTCA of LAD done using 3.0, 3.5 balloon and of diagnol using 1.5, 2.0, 2.5 balloons and flow restored. Discussed with Dr Granados IABP inserted Started on Integrilin now stopped , pt has hematuria and is cp free , still on Heparin Repeat CBC this evening CABG Tuesday ?? 2. COPD 3. Tobacco Abuse 4. Diabetes 5. Hyperlipidemia 6. PVD 7. Anemia 8. Recent Bladder surgery Addendum 1;02 pm - After discussion with Dr Clayton , will continue integrelin due to concerns for increased clot burden and will discontinue before surgery Joe Weinberg MD, [facility] [phone] [facility] 05/02/2021 12:42 PM F FORESTER F FORESTER documented in this encounter H&P Notes * Rhina Granados MD - 05/02/2021 10:12 AM CST Cardiothoracic Surgery H&P Deepak Alvarado 1960 Reason for Consult: CAD Physician Referring: Dr. Clayton Chief Complaint: chest pain HPI: Deepak Alvarado is 60 y.o. White male with hx of DM, HTN, HL and previous PCI (multiple in LAD) who presented with chest pain. He said yesterday he underwent bladder surgery for hematuria and theyfound some sort of tumor. Post- procedurally, he had chest pain, dull, substernal, and accompaniedwith sweating. He went to [facility] ED with EKG changes concerning for STEMI. He was taken to the [facility] yesterday by Dr. Clayton and was found to have re-thrombosis of his previous LAD stents. Dr. Clayton was able to open them but unable to stent this. They placed a IABP and he was admitted to the CVU. 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 No fevers/chills No nausea/vomiting No chest pain No SOB No abdominal pain No weakness CT attending: Patient seen, interviewed and examined. I agree with the HPI presented above by my fellow. The patient has known coronary disease having had several stents in the past. He required bladder surgery for hematuria so his Effient was stopped for about 7 days. Shortly after his procedure on the bladder the patient presented with acute chest pain to the emergency room in [place]. He was transferred to [facility] for STEMI and taken to the [facility] where his LAD and diagonalstents were found to be thrombosed. These were opened with balloon with re-establishment of HAZEL 2 flow. His symptoms resolved. He was not felt to be a candidate for further stenting. The balloon pump was placed and we are asked to see him coronary bypass surgery. The patient has been stable through the weekend without any chest pain on heparin, Integrilin, and intra-aortic balloon pump. He is presently chest pain-free. His risk factors for coronary disease include hypertension, diabetes, and smoking. HOME MEDICATIONS : aspirin 325 mg tablet carvedilol (COREG) 6.25 mg tablet fenofibrate (TRIGLIDE) 160 mg tablet glimepiride (AMARYL) 2 mg tablet insulin glargine (LANTUS) 100 unit/mL cartridge lisinopril (PRINIVIL,ZESTRIL) [address] (PROTONIX) 40 mg EC tablet prasugrel (EFFIENT) tablet pravastatin (PRAVACHOL) 80 mg tablet Current Facility-Administered Medications: ??? acetaminophen (TYLENOL) tablet 1,000 mg, 1,000 mg, oral, Q6H PRN, 1,000 mg at 05/02/21 0006 ??? aspirin chewable tablet 324 mg, 324 mg, oral, Daily, 324 mg at 05/02/21 0837 ??? atorvastatin (LIPITOR) tablet 80 mg, 80 mg, oral, Daily, 80 mg at 05/02/21 0837 ??? dextrose oral liquid liquid 15 g, 15 g, oral, Q15 Min PRN OR dextrose (D10W) 10% bolus 250 mL, 250 mL, intravenous, Q15 Min PRN ??? eptifibatide (INTEGRILIN) 0.75 mg/mL infusion, 2 mcg/kg/min, intravenous, Continuous, Last Rate: 13.79 mL/hr at 05/02/21 0620, 2 mcg/kg/min at 05/02/21 0620 ??? glucagon injection 1 mg, 1 mg, intramuscular, Q30 Min PRN ??? heparin 1,000 unit/mL injection 2,000 Units, 2,000 Units, intravenous, Q6H PRN OR heparin 1,000 unit/mL injection 3,000 Units, 3,000 Units, intravenous, Q6H PRN ??? heparin in 0.45% sodium chloride 25,000 units/250 mL (100 units/mL) infusion (premix), 0-33 Units/kg/hr, intravenous, Titrated, Last Rate: 10 mL/hr at 05/01/214, 11.601 Units/kg/hr at 05/01/212203 ??? insulin glargine (LANTUS, SEMGLEE) 100 unit/mL injection 13 Units, 0.15 Units/kg, subcutaneous,Nightly, 13 Units at 05/01/217 ??? insulin lispro (HumaLOG, ADMELOG) 100 unit/mL injection 0-4 Units, 0-4 Units, subcutaneous, Nightly ??? insulin lispro (HumaLOG, ADMELOG) 100 unit/mL injection 0-5 Units, 0-5 Units, subcutaneous, TIDwith meals ??? insulin lispro (HumaLOG, ADMELOG) 100 unit/mL injection 4 Units, 0.05 Units/kg, subcutaneous, TID with meals ??? metoprolol tartrate (LOPRESSOR) immediate release tablet 12.5 mg, 12.5 mg, oral, BID, 12.5 mg at 05/02/21 0837 ??? oxyCODONE (ROXICODONE) tablet 5 mg, 5 mg, oral, Q4H PRN, 5 mg at 05/02/2138 ??? pantoprazole DR (PROTONIX) extended release tablet 40 mg, 40 mg, oral, Daily, 40 mg at ??? senna-docusate (PERICOLACE) 8.6-50 mg per tablet 1 tablet, 1 tablet, oral, Nightly ??? sodium chloride 0.9% infusion, 50 mL/hr, intravenous, Continuous, Last Rate: 50 mL/hr at 05/02/21 0049, 50 mL/hr at 05/02/21 0049 Allergies Allergen Reactions ??? Metoclopramide Past Medical History: Diagnosis Date ??? Chronic obstructive pulmonary disease (CMS/HCC) (HCC) COPD ??? Coronary artery disease ??? Diabetes mellitus (HCC) ??? H/O heart artery stent 2006 ??? Hypertension Hypertension ??? ST elevation (STEMI) myocardial infarction ([facility]) 05/01/2021 No past surgical history on file. Family History Problem Relation Age of Onset ??? COPD Father Social History Socioeconomic History ??? Marital status: Spouse name: Not on file ??? Number of children: Not on file ??? Years of education: Not on file ??? Highest education level: Not on file Occupational History ??? Not on file Tobacco Use ??? Smoking status: Current Every Day Smoker Packs/day: 1.00 Years: 40.00 Pack years: 40.00 Types: Cigarettes ??? Smokeless tobacco: Not on file ??? Tobacco comment: Smoking History Packs/day: 1 Packs Substance and Sexual Activity ??? Alcohol use: No ??? Drug use: Yes Frequency: 1.0 times per week Types: Tobacco Comment: 1 ppd current smoker ??? Sexual activity: Defer Other Topics Concern ??? Not on file Social History Narrative ??? Not on file Social Determinants of Health Financial Resource Strain: Not on file Food Insecurity: Not on file Transportation Needs: Not on file Physical Activity: Not on file Stress: Not on file Social Connections: Not on file Intimate Partner Violence: Not on file Housing Stability: Not on file Review of Systems - Review of Systems negative except those described in HPI and below: Review of Systems CT attending: All above reviewed Vital Signs: Vitals: 05/02/21 1000 BP: 101/50 Pulse: 71 Resp: 19 Temp: SpO2: 91% Cardiac Rhythm: Normal sinus rhythm (05/02/21 0800) Body surface area is 2.12 meters squared. I/O last 2 completed shifts: In: 2400 [P.O.:500; I.V.:1900] Out: 1550 [Urine:1550] Physical Exam Vitals reviewed. Constitutional: Appearance: Normal appearance. He is normal weight. HENT: Head: Normocephalic. Right Ear: External ear normal. Left Ear: External ear normal. Cardiovascular: Rate and Rhythm: Normal rate and regular rhythm. Heart sounds: Normal heart sounds. Comments: Patient is right handed. Left Roque test is abnormal with refill at greater than 10 seconds Pulmonary: Effort: Pulmonary effort is normal. No respiratory distress. Breath sounds: Normal breath sounds. Abdominal: General: Abdomen is flat. Palpations: Abdomen is soft. Musculoskeletal: General: No swelling. Cervical back: Neck supple. Right lower leg: No edema. Left lower leg: No edema. Comments: No varicose veins Neurological: General: No focal deficit present. Mental Status: He is alert and oriented to person, place, and time. Psychiatric: Mood and Affect: Mood normal. CT attending: I examined the patient myself and I agree with the findings listed above as amended by me Labs: Reviewed. Recent Labs Lab Units 05/02/21 0443 WBC K/cumm 18.3* HEMOGLOBIN g/dL 9.6* HEMATOCRIT % 29.3* PLATELETS K/cumm 313 Recent Labs Lab Units 05/02/21 0831 05/02/21 0450 05/02/21 0443 11/12/221805/01/212218 SODIUM mmol/L -- -- 135 < > 134* POTASSIUM PLASMA mmol/L -- -- 3.3 < > 4.0 CHLORIDE mmol/L -- -- 106 < > 103 CO2 mmol/L -- -- 21* < > 19* ANIONGAP mmol/L -- -- 8 < > 12 GLUCOSE mg/dL -- -- 106 < > 157 POC GLUCOSE MONITOR mg/dL 117 < > -- -- -- BUN SERUM mg/dL -- -- 8 < > 9 CREATININE mg/dL -- -- 0.60* < > 0.63* CALCIUM mg/dL -- -- 8.4* < > 8.1* ALBUMIN g/dL -- -- -- -- 3.2* ALK PHOS Units/L -- -- -- -- 64 ALT Units/L -- -- -- -- 28 AST Units/L -- -- -- -- 245* BILIRUBIN TOTAL mg/dL -- -- -- -- 0.3 < > = values in this interval not displayed. Cardiac Cath 05/01: Cardiac cath done from right Femoral artery Left main: 40% distal stenosis Left anterior descendin% proximal stenosis Left circumflex: 90% proximal stenosis Right coronary artery:50% proximal, 50% distal stenosis Left ventriculogram: Moderate blanka-apical hypokinesis PTCA of LAD done using 3.0, 3.5 balloon and of diagnol using 1.5, 2.0, 2.5 balloons and flow restored. Discussed with Dr Granados IABP inserted Started on Integrilin, heparin Chest x-ray 05/02/2021: Images reviewed by me. He appears to have bilateral upper lobe infiltrates worse on the right than left. This may be inflammatory in nature given his high WBC Transthoracic echo 05/02/2021: EF 40% with anterior wall and apical hypokinesis. No AI or MR. No CT attending: All above studies and images were reviewed by me independently and I concur with the findings STS Risk CABG Risk of Mortality: 1.041% Renal Failure: 1.047% Permanent Stroke: 0.454% Prolonged Ventilation: 10.354% DSW Infection: 0.218% Reoperation: 1.522% Morbidity or Mortality: 13.150% Short Length of Stay: 57.433% Long Length of Stay: 3.283% Assessment and Plan: Deepak Alvarado is a 60 yo M with previous CAD and PCI to the LAD who presented after a procedure with chest pain and was found to have 100% proximal stenosis of the LAD with evangelical of flow. An IABP was placed. He is stable for now without chest pain, his troponins are down-trending. Plan: - Echo obtained this morning, will review results - COVID test - Okay for diet - Continue on hep gtt and Integrilin - Please call CTS if the patient develops recurrent chest pain or begins to have elevated troponins - Will plan for likely CABG Tuesday pending how he does over the weekend CT attending: I agree with the assessment and plan reported above which was formulated by me. The patient will need Coronary Artery Bypass Graft x4 grafts going to the LAD, om, diagonal, and PDA. Will plan using left QUINN and 2 long segments saphenous vein. This was explained to the patient including the potential risk of , organ dysfunction, and other complications. He agree to proceed. Rhina Granados MD Cardiothoracic [facility] Thank you for allowing us to participate in the care of this patient. We will continue to follow. If you have any questions, please don't hesitate to call. Ainsley Rashid MD Cardiothoracic Surgery [facility] [phone] 110:13 AM F FORESTER F FORESTER F FORESTER F FORESTER * rEika Suárez NP - 05/02/2021 9:54 AM CST History and Physical CHIEF COMPLAINT No chief complaint on file. HPI Patient is a 60 y.o. male with past medical history of CAD status post MT, hypertension, hyperlipidemia, PVD, COPD and tobacco abuse who presented to the hospital due to chest pain. Per review of therecords patient had bladder surgery yesterday at [facility]. He was dischargedhome but returned back to the hospital due to dizziness. He states he was trying to go home when hesuddenly felt dizzy and broke out in a sweat. After arrival to [facility] patient complained chest pain and repeat EKG was performed which showed ST elevation in anterior chest leads. Due to the above patient was transferred to [facility] for further evaluation and care. On arrival to the emergency room patient was seen by Cardiology and taken for cardiac catheterization and per review of the records he was found to have rethrombosis a previous LAD stents. PTCA of the LAD was done and patient was placed on IABP and admitted to CVU for further management and care. PAST MEDICAL HISTORY Past Medical History: Diagnosis Date ??? COPD CAD s/p MT 2006 & 2009 ??? Diabetes mellitus (HCC) ??? H/O heart artery stent 2006 ??? Hypertension Hyperlipidemia History of atrial septal aneurysm per 04/04/2012 echo, per prior notes Obesity PVD Tobacco abuse Vitamin-D deficiency PAST SURGICAL HISTORY 02/05/2010 angioplasty and stenting of the LAD 3x18 mm Endevor 08/29/2006 angioplasty and stenting of LAD/diagonal 2/75 x 12 mm Taxus to the LAD & 2.5 x 12 mmTaxus to the diagonal 04/30/21 PCI/PTCA 04/29/2021 Bladder surgery 2/ bladder tumor at [facility] ALLERGIES Allergies Allergen Reactions ??? Metoclopramide FAMILY HISTORY family history includes COPD in his father. Mother had history of heart problems, per patient SOCIAL HISTORY Patient lives with his . He has 2 sons. He smokes 1 pack cigarettes per day and has been smoking since age of 10-12. Denies drinking alcohol or the use of any illicit street drugs. 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 Authorizing Provider aspirin 325 mg tablet take 1 Tablet (325MG) by oral route every day 04/13/12 Alejandro Kim MD carvedilol (COREG) 6.25 mg tablet TAKE 1 TABLET (6.25MG) BY ORAL ROUTE 2 TIMES EVERY DAY WITH FOOD 04/13/12 Alejandro Kim MD fenofibrate (TRIGLIDE) 160 mg tablet take 1 tablet (160MG) by oral route every day 04/13/12 Alejandro Kim MD glimepiride (AMARYL) 2 mg tablet take 1 tablet (2MG) by oral route every day 04/13/12 Alejandro Kim MD insulin glargine (LANTUS) 100 unit/mL cartridge inject by subcutaneous route as per insulin protocol 04/13/12 Alejandro Kim MD lisinopril (PRINIVIL,ZESTRIL) 10 mg tablet take 1 Tablet (10MG) by oral route every day 04/13/12 Alejandro Kim MD pantoprazole DR (PROTONIX) 40 mg EC tablet take 1 tablet (40MG) by oral route every day 04/13/12 Alejandro Kim MD prasugrel (EFFIENT) tablet take 1 tablet (10MG) by oral route every day 04/13/12 Sofía Boateng NP pravastatin (PRAVACHOL) 80 mg tablet take 1 tablet (80MG) by oral route every day 04/13/12 Alejandro Kim MD REVIEW OF SYSTEMS 14 point review of systems is negative except for what I have already mentioned above in the history of present illness. OBJECTIVE Temp Av.5 ??C (97.7 ??F) Min: 36.5 ??C (97.7 ??F) Max: 36.5 ??C (97.7 ??F) BP Min: 85/46 Max: 117/48 Pulse Av Min: 70 Max: 89 Resp Av.5 Min: 0 Max: 27 SpO2 Av.1 % Min: 83 % Max: 97 % O2 Flow Rate (L/min): 2 L/min I/O last 3 completed shifts: In: 2400 [P.O.:500; I.V.:1900] Out: 1550 [Urine:1550] Weight: Wt Readings from Last 1 Encounters: 05/02/21 92 kg (202 lb 13.2 oz) PHYSICAL EXAM General: This is a 60 y.o. male in no acute distress. Head: Normocephalic, atraumatic. Eyes: PERRLA, EOMI bilaterally. No conjunctival injection. Nasal cavity is patent. Throat is clear.Mucus membranes are pink and moist without bleeding. Neck: Supple. No JVD. No lymphadenopathy. Trachea is in the midline position. Lungs: Clear breath sounds bilaterally. No wheezing auscultated. Heart: S1 and S2. No murmur auscultated. Abdomen: Round, soft, nontender. Bowel sounds are present in all four quadrants. : Osorio catheter with blood-tinged urine. Extremities: No cyanosis, clubbing or edema. Neuro: Patient is awake and alert x 3. Speech is clear and coherent. Psychiatric: Normal mood and affect. Behavior is normal. Skin: Warm and dry. No rashes or lesions. LAB/RADIOLOGY/DIAGNOSTIC: Recent Labs Lab Units 05/02/2144205/01/212218 WBC K/cumm 18.3* 15.7* HEMOGLOBIN g/dL 9.6* 9.4* HEMATOCRIT % 29.3* 28.2* PLATELETS K/cumm 313 312 NEUTROS PCT % -- 73.4 LYMPHS PCT % -- 15.5 MONOS PCT % -- 9.8 EOS PCT % -- 0.6 Recent Labs Lab Units 05/02/21 0831 05/02/21 0450 05/02/2144205/01/21221805/01/212218 SODIUM mmol/L -- -- 135 -- 134* POTASSIUM PLASMA mmol/L -- -- 3.3 -- 4.0 CHLORIDE mmol/L -- -- 106 -- 103 CO2 mmol/L -- -- 21* -- 19* ANIONGAP mmol/L -- -- 8 -- 12 GLUCOSE mg/dL -- -- 106 < > 157 POC GLUCOSE MONITOR mg/dL 117 106 -- -- -- BUN SERUM mg/dL -- -- 8 -- 9 CREATININE mg/dL -- -- 0.60* -- 0.63* CALCIUM mg/dL -- -- 8.4* -- 8.1* ALBUMIN g/dL -- -- -- -- 3.2* ALK PHOS Units/L -- -- -- -- 64 ALT Units/L -- -- -- -- 28 AST Units/L -- -- -- -- 245* BILIRUBIN TOTAL mg/dL -- -- -- -- 0.3 < > = values in this interval not displayed. Recent Labs Lab Units 05/01/212218 PH ART 7.35 PCO2 ART mmHg 37 PO2 ART mmHg 31* HCO3 ART (CALC) mmol/L 20 BASE EXC ART mmol/L -5 O2 SAT ART (JOELLE) % 54* No results found for: TROPONINI No results found for: BNP No results found for: TSH Recent Labs Lab Units 05/01/212218 PROTIME (PT) sec 14.5* INR 1.3* Recent Labs Lab Units 05/02/21 0032 CHOLESTEROL mg/dL 139 TRIGLYCERIDES mg/dL 105 HDL mg/dL 33* LDL CALC mg/dL 85 LAB TREND CBC: Lab Results Component Value Date WBC 18.3 (H) 05/02/2021 WBC 15.7 (H) 05/01/2021 HGB 9.6 (L) 05/02/2021 HGB 9.4 (L) 05/01/2021 HCT 29.3 (L) 05/02/2021 HCT 28.2 (L) 05/01/2021 BMP: Lab Results Component Value Date SODIUM 135 05/02/2021 SODIUM 134 (L) 05/01/2021 POTASSIUM 3.3 05/02/2021 POTASSIUM 4.0 05/01/2021 CHLORIDE 106 05/02/2021 CREATININE 0.60 (L) 05/02/2021 CREATININE 0.63 (L) 05/01/2021 CALCIUM 8.4 (L) 05/02/2021 CALCIUM 8.1 (L) 05/01/2021 No results found for: BNP Lab Results Component Value Date ALKPHOS 64 05/01/2021 Lab Results Component Value Date MAGNESIUM 1.6 05/01/2021 Lab Results Component Value Date AST 245 (H) 05/01/2021 Lab Results Component Value Date ALT 28 05/01/2021 Radiology: XR Chest 1 Vw Portable Result Date: 05/02/2021 Narrative: EXAMINATION: XR CHEST 1 VIEW DATE: 05/02/2021 5:15 AM INDICATION: Intra-aortic balloon pump. COMPARISON: 05/01/2021. FINDINGS: Appropriately positioned intra-aortic balloon pump appears unchanged. No pneumothorax or pleural effusion. Mixed reticular and alveolar opacities demonstrated inall lung lobes appear most significant in the upper lobes and perihilar regions, unchanged. Impression: 1. Appropriately positioned intra-aortic balloon pump. 2. Similar mixed reticular and alveolar opacities most notable in the bilateral upper lobes and perihilar region. Electronically signed by: Richard Lopez II, D.O. XR Chest 1 Vw Portable Result Date: 05/02/2021 Narrative: EXAMINATION: XR CHEST 1 VIEW DATE: 05/01/2021 8:15 PM INDICATION: Hypoxia. COMPARISON: None. FINDINGS: No pneumothorax. No pleural effusion. Mixed reticular and alveolar opacities are demonstrated in all lung lobes but demonstrate an upper lobe and perihilar predominance. Findings may represent pulmonary edema on background of centrilobular emphysematous changes. Underlying infectiousprocess not entirely excludable. Cardiac mediastinal silhouette is stable in appearance. No acute osseous abnormality. Impression: Mixed reticular and alveolar opacities are demonstrated in all lung lobes but demonstrate an upper lobe and perihilar predominance. Findings may represent pulmonary edema on background ofcentrilobular emphysematous changes. Electronically signed by: Richard Lopez II, D.O. EKG: No results found for this or any previous visit. ASSESSMENT AND PLAN All Diagnosis Present on Admission Present on Admission: 1. Chest pain in a patient with a known history of CAD. Patient is s/p cardiac catheterization on 04/30/21 with PTCA of LAD. Started on Integrilin, heparin. Admitted to the ICU for further managementand care. CABG Tuesday, per notes. Cardiology following. 2. CAD s/p anterior wall myocardial infarction. Troponin 5852, 7281,7050, 6777. Patient is s/p cardiac catheterization on 04/30/21 with PTCA of LAD. Started on Integrilin, heparin. Metoprolol. CABG Tuesday, pr notes. Cardiology following. 3. Hypertension. Monitor the blood pressure closely and treat accordingly. On metoprolol. 4. Hyperlipidemia. On Statin. 5. Diabetes type 2. Sliding scale insulin. Lantus insulin. Hemoglobin A1c 6. Leukocytosis. Follow. CBC in a.m. and evaluate. 7. Anemia. Follow. CBC in a.m. and evaluate. 8. PVD. Continue Aspirin. Statin. 9. Tobacco abuse. Discussed the hazards of cigarette smoking and smoking cessation advised. 10. DVT and GI prophylaxis initiated. CONSULTS IP CONSULT TO HOSPITALIST Code Status: Full Code Anticipated date of discharge: To be determined per hospital course Erika Suárez NP 05/02/2021 9:55 AM Team Health Primary Care Physician: Billie Roth Voice recognition software [employer] Direct was used dictate and transcribe this document. Court Monitor variances may occur. Despite proofreading, typographical errors may occur. Cosigned by Lulú Garcia MD at 05/03/2021 8:02 AM STAFF FORESTER F FORESTER F FORESTER F FORESTER documented in this encounter Procedure Notes * Marek Mei NP - 05/30/2021 8:03 PM CSTAssociated Order(s): Critical Care Post-Procedure Diagnose(s): ST elevation myocardial infarction (STEMI), unspecified artery (HCC) Critical Care Performed by: Marek Mei NP Authorized by: Marek Mei NP CRITICAL CARE: Team: BISHOP Shift: PM Level of Billing: Critical Care My time spent with this patient was 60 minutes: Critical Provider Statement: I have seen and examined the patient on this day of service. I have reviewed and confirmed the history, physical exam, laboratory and radiologic data as documented in thesigned ICU note. I have reviewed and discussed my treatment plan with the ICU team and other medical/environmental remediation consultant staff, making frequent assessments and decisions regarding this patient's complex medical care. Critical Care time was exclusive of time spent performing separately billed procedures, treating other patients, and teaching. This time was in addition to and separate from critical care provided by other practitioners in my group on this day of service. Critical Care was necessary to treat or prevent imminent or life-threatening deterioration of the following conditions: Acute pain/acute postoperative pain COVID 19 Acute hypoxic respiratory failure Pneumonia and Leukocytosis This time was spent by me doing the following: Obtaining peripheral venous access or blood draws, Serial bedside patient exams and Serial laboratory checks Acute pain control and Frequent neurologic exams High flow nasal cannula Active and frequent reassessment of respiratory status and oxygen requirements and Incentive spirometry, pulmonary toilet Active and frequent monitoring of intake/output and volumen status Review of prior or current culture/gram stain results and Empiric broad coverage antibiotics I spent time reviewing and interpreting data from bedside monitors, laboratory results, and imaging, I spent time discussing the management of this critically ill patient with consultants and the medical staff and I spent time documenting in the medical record Cosigned by Austin Hoffman MD at 06/09/2021 1:01 PM STAFF FORESTER F FORESTER F FORESTER * Erika Mayer NP - 05/30/2021 7:00 AM CSTAssociated Order(s): Critical Care Post-Procedure Diagnose(s): ST elevation myocardial infarction (STEMI), unspecified artery (HCC) Critical Care Performed by: Erika Mayer NP Authorized by: Erika Mayer NP CRITICAL CARE: Team: CHENG Shift: AM Level of Billing: Critical Care My time spent with this patient was 90 minutes: Critical Provider Statement: I have seen and examined the patient on this day of service. I have reviewed and confirmed the history, physical exam, laboratory and radiologic data as documented in thesigned ICU note. I have reviewed and discussed my treatment plan with the ICU team and other medical/environmental remediation consultant staff, making frequent assessments and decisions regarding this patient's complex medical care. Critical Care time was exclusive of time spent performing separately billed procedures, treating other patients, and teaching. This time was in addition to and separate from critical care provided by other practitioners in my group on this day of service. Critical Care was necessary to treat or prevent imminent or life-threatening deterioration of the following conditions: Acute pain/acute postoperative pain Hypotension S/p cabg 05/04 Covid 19 pneumonia Atelectasis and Acute hypoxic respiratory failure Acute electrolyte derangement and Hypo- or Hyperglycemia Severe coagulopathy Leukocytosis, Pneumonia and Sepsis This time was spent by me doing the following: Arterial puncture, Obtaining peripheral venous access or blood draws, Serial bedside patient exams and Serial laboratory checks Acute pain control and Frequent neurologic exams Serial neurovascular exams Incentive spirometry, pulmonary toilet, Frequent bronchodilator treatments and Active and frequent reassessment of respiratory status and oxygen requirements Serial abdominal exams, Glycemic control and Active and frequent monitoring of intake/output and volumen status Active repletion of electrolytes Initiation/monitoring/titration of anticoagulants Empiric broad coverage antibiotics, Obtaining appropriate cultures and Review of prior or current culture/gram stain results Advanced wound care I spent time reviewing and interpreting data from bedside monitors, laboratory results, and imaging, I spent time discussing the management of this critically ill patient with consultants and the medical staff, I spent time documenting in the medical record, I spent time talking to this patient's relatives to obtain additional medical history due to patient's inabililty to provide history and I spent time talking to this patient's surrogate decision maker to determine treatment plans due to patient's inability to participate in decision making Cosigned by Trinh Yeh MD at 06/01/2021 8:34 AM STAFF FORESTER F FORESTER F FORESTER * Marek Mei NP - 05/29/2021 8:51 PM CSTAssociated Order(s): Critical Care Post-Procedure Diagnose(s): ST elevation myocardial infarction (STEMI), unspecified artery (HCC) Critical Care Performed by: Marek Mei NP Authorized by: Marek Mei NP CRITICAL CARE: Team: BISHOP Shift: PM Level of Billing: Critical Care My time spent with this patient was 75 minutes: Critical Provider Statement: I have seen and examined the patient on this day of service. I have reviewed and confirmed the history, physical exam, laboratory and radiologic data as documented in thesigned ICU note. I have reviewed and discussed my treatment plan with the ICU team and other medical/environmental remediation consultant staff, making frequent assessments and decisions regarding this patient's complex medical care. Critical Care time was exclusive of time spent performing separately billed procedures, treating other patients, and teaching. This time was in addition to and separate from critical care provided by other practitioners in my group on this day of service. Critical Care was necessary to treat or prevent imminent or life-threatening deterioration of the following conditions: Acute pain/acute postoperative pain COVID 19 Acute hypoxic respiratory failure Hypo- or Hyperglycemia Pneumonia and Leukocytosis This time was spent by me doing the following: Obtaining peripheral venous access or blood draws, Serial laboratory checks and Serial bedside patient exams Acute pain control and Frequent neurologic exams Active and frequent reassessment of respiratory status and oxygen requirements and Optiflow support Active and frequent monitoring of intake/output and volumen status Review of prior or current culture/gram stain results and Empiric broad coverage antibiotics I spent time reviewing and interpreting data from bedside monitors, laboratory results, and imaging, I spent time discussing the management of this critically ill patient with consultants and the medical staff and I spent time documenting in the medical record Cosigned by Austin Hoffman MD at 06/09/2021 1:01 PM STAFF FORESTER F FORESTER F FORESTER * Elena Kelly NP - 05/29/2021 7:00 AM CSTAssociated Order(s): Critical Care Post-Procedure Diagnose(s): COVID; Acute respiratory failure due to COVID-19 (HCC) Critical Care Performed by: Elena Kelly NP Authorized by: Elena Kelly NP CRITICAL CARE: Team: BISHOP Shift: AM Level of Billing: Critical Care My time spent with this patient was 65 minutes: Critical Provider Statement: I have seen and examined the patient on this day of service. I have reviewed and confirmed the history, physical exam, laboratory and radiologic data as documented in thesigned ICU note. I have reviewed and discussed my treatment plan with the ICU team and other medical/environmental remediation consultant staff, making frequent assessments and decisions regarding this patient's complex medical care. Critical Care time was exclusive of time spent performing separately billed procedures, treating other patients, and teaching. This time was in addition to and separate from critical care provided by other practitioners in my group on this day of service. Critical Care was necessary to treat or prevent imminent or life-threatening deterioration of the following conditions: Acute pain/acute postoperative pain Acute hypoxic respiratory failure Protein-calorie malnutrition Acid-base disturbance, Acute electrolyte derangement and Hypo- or Hyperglycemia Leukocytosis and Pneumonia This time was spent by me doing the following: Serial bedside patient exams Acute pain control Active and frequent reassessment of respiratory status and oxygen requirements, Incentive spirometry, pulmonary toilet, Frequent bronchodilator treatments and Optiflow support Glycemic control and Active and frequent monitoring of intake/output and volumen status Active repletion of electrolytes and Initiation/titration of corticosteroids Review of prior or current culture/gram stain results and Empiric broad coverage antibiotics I spent time reviewing and interpreting data from bedside monitors, laboratory results, and imaging, I spent time discussing the management of this critically ill patient with consultants and the medical staff and I spent time documenting in the medical record Cosigned by Dominique Wilkinson MD at 05/29/2021 8:50 PM STAFF FORESTER F FORESTER F FORESTER * Rosy Muñoz NP - 05/28/2021 10:32 PM CSTAssociated Order(s): Critical Care Post-Procedure Diagnose(s): Acute respiratory failure due to COVID-19 (HCC) Critical Care Performed by: Rosy Muñoz NP Authorized by: Rosy Muñoz NP CRITICAL CARE: Team: CHENG Shift: PM Level of Billing: Critical Care My time spent with this patient was 30 minutes: Critical Provider Statement: I have seen and examined the patient on this day of service. I have reviewed and confirmed the history, physical exam, laboratory and radiologic data as documented in thesigned ICU note. I have reviewed and discussed my treatment plan with the ICU team and other medical/environmental remediation consultant staff, making frequent assessments and decisions regarding this patient's complex medical care. Critical Care time was exclusive of time spent performing separately billed procedures, treating other patients, and teaching. This time was in addition to and separate from critical care provided by other practitioners in my group on this day of service. Critical Care was necessary to treat or prevent imminent or life-threatening deterioration of the following conditions: COVID 19 pneumonia Polymicrobial pneumonia Mild, improved hematuria Acute hypoxic respiratory failure Hypo- or Hyperglycemia This time was spent by me doing the following: Obtaining peripheral venous access or blood draws, Serial laboratory checks and Serial bedside patient exams Frequent neurologic exams Serial neurovascular exams Active and frequent reassessment of respiratory status and oxygen requirements, Incentive spirometry, pulmonary toilet and Optiflow support Active and frequent monitoring of intake/output and volumen status, Glycemic control and Serial abdominal exams Empiric broad coverage antibiotics and Review of prior or current culture/gram stain results I spent time reviewing and interpreting data from bedside monitors, laboratory results, and imaging, I spent time discussing the management of this critically ill patient with consultants and the medical staff and I spent time documenting in the medical record Cosigned by Austin Hoffman MD at 06/09/2021 1:01 PM STAFF FORESTER F FORESTER F FORESTER * Alejandro Gonzalez NP - 05/28/2021 11:04 AM CSTAssociated Order(s): Critical Care Post-Procedure Diagnose(s): COVID; Acute respiratory failure due to COVID-19 (HCC) Critical Care Performed by: Alejandro Gonzalez NP Authorized by: Alejandro Gonzalez NP CRITICAL CARE: Team: BISHOP Shift: AM Level of Billing: Critical Care My time spent with this patient was 40 minutes: Critical Provider Statement: I have seen and examined the patient on this day of service. I have reviewed and confirmed the history, physical exam, laboratory and radiologic data as documented in thesigned ICU note. I have reviewed and discussed my treatment plan with the ICU team and other medical/environmental remediation consultant staff, making frequent assessments and decisions regarding this patient's complex medical care. Critical Care time was exclusive of time spent performing separately billed procedures, treating other patients, and teaching. This time was in addition to and separate from critical care provided by other practitioners in my group on this day of service. Critical Care was necessary to treat or prevent imminent or life-threatening deterioration of the following conditions: COVID-19 Acute hypoxic respiratory failure Hypo- or Hyperglycemia Pneumonia and Sepsis This time was spent by me doing the following: Serial bedside patient exams and Serial laboratory checks Active and frequent reassessment of respiratory status and oxygen requirements, Optiflow support and Frequent bronchodilator treatments Active and frequent monitoring of intake/output and volumen status and Glycemic control Initiation/titration of corticosteroids Empiric broad coverage antibiotics, Obtaining appropriate cultures and Review of prior or current culture/gram stain results I spent time reviewing and interpreting data from bedside monitors, laboratory results, and imaging, I spent time discussing the management of this critically ill patient with consultants and the medical staff and I spent time documenting in the medical record F FORESTER * Rosy Muñoz NP - 05/27/2021 8:35 PM CSTAssociated Order(s): Critical Care Post-Procedure Diagnose(s): Acute respiratory failure due to COVID-19 (HCC) Critical Care Performed by: Rosy Muñoz NP Authorized by: Rosy Muñoz NP CRITICAL CARE: Team: CHENG Shift: PM Level of Billing: Critical Care My time spent with this patient was 35 minutes: Critical Provider Statement: I have seen and examined the patient on this day of service. I have reviewed and confirmed the history, physical exam, laboratory and radiologic data as documented in thesigned ICU note. I have reviewed and discussed my treatment plan with the ICU team and other medical/environmental remediation consultant staff, making frequent assessments and decisions regarding this patient's complex medical care. Critical Care time was exclusive of time spent performing separately billed procedures, treating other patients, and teaching. This time was in addition to and separate from critical care provided by other practitioners in my group on this day of service. Critical Care was necessary to treat or prevent imminent or life-threatening deterioration of the following conditions: COVID 19 viral pneumonia Rhinovirus pneumonia MRSA, Moraxella, H Influenzae pneumonia Mild hematuria Acute hypoxic respiratory failure and Atelectasis Pneumonia This time was spent by me doing the following: Obtaining peripheral venous access or blood draws, Serial bedside patient exams and Serial laboratory checks Frequent neurologic exams Serial neurovascular exams Active and frequent reassessment of respiratory status and oxygen requirements, Incentive spirometry, pulmonary toilet and Optiflow support Active and frequent monitoring of intake/output and volumen status, Glycemic control and Serial abdominal exams Empiric broad coverage antibiotics and Review of prior or current culture/gram stain results I spent time reviewing and interpreting data from bedside monitors, laboratory results, and imaging, I spent time discussing the management of this critically ill patient with consultants and the medical staff and I spent time documenting in the medical record Cosigned by Austin Hoffman MD at 06/09/2021 1:01 PM STAFF FORESTER F FORESTER F FORESTER F FORESTER * Alejandro Gonzalez NP - 05/27/2021 2:44 PM CSTAssociated Order(s): Critical Care Post-Procedure Diagnose(s): Acute respiratory failure due to COVID-19 (HCC) Critical Care Performed by: Alejandro Gonzalez NP Authorized by: Alejandro Gonzalez NP CRITICAL CARE: Team: CHENG Shift: AM Level of Billing: Critical Care My time spent with this patient was 35 minutes: Critical Provider Statement: I have seen and examined the patient on this day of service. I have reviewed and confirmed the history, physical exam, laboratory and radiologic data as documented in thesigned ICU note. I have reviewed and discussed my treatment plan with the ICU team and other medical/environmental remediation consultant staff, making frequent assessments and decisions regarding this patient's complex medical care. Critical Care time was exclusive of time spent performing separately billed procedures, treating other patients, and teaching. This time was in addition to and separate from critical care provided by other practitioners in my group on this day of service. Critical Care was necessary to treat or prevent imminent or life-threatening deterioration of the following conditions: COVID-19 Acute hypoxic respiratory failure Acute electrolyte derangement Sepsis, Leukocytosis and Pneumonia This time was spent by me doing the following: Serial bedside patient exams Frequent bronchodilator treatments, Active and frequent reassessment of respiratory status and oxygen requirements and Optiflow support Empiric broad coverage antibiotics, Obtaining appropriate cultures and Review of prior or current culture/gram stain results I spent time reviewing and interpreting data from bedside monitors, laboratory results, and imaging, I spent time documenting in the medical record and I spent time discussing the management of this critically ill patient with consultants and the medical staff Cosigned by Dominique Wilkinson MD at 05/28/2021 8:01 AM STAFF FORESTER F FORESTER F FORESTER * Frank Dugan MD - 05/26/2021 9:59 PM CSTAssociated Order(s): Critical Care Post-Procedure Diagnose(s): Chronic obstructive pulmonary disease, unspecified COPD type (HCC); Pneumonia due to COVID-19 virus; Acute hypoxemic respiratory failure due to COVID-19 (CMS/HCC) ([facility]); S/P CABG x 4; ST elevation myocardial infarction involving left circumflex coronary artery ([facility]) Critical Care Performed by: Frank Dugan MD Authorized by: Frank Dugan MD CRITICAL CARE: Team: CHENG Shift: PM Level of Billing: Critical Care My time spent with this patient was 40 minutes: Critical Provider Statement: I have seen and examined the patient on this day of service. I have reviewed and confirmed the history, physical exam, laboratory and radiologic data as documented in thesigned ICU note. I have reviewed and discussed my treatment plan with the ICU team and other medical/environmental remediation consultant staff, making frequent assessments and decisions regarding this patient's complex medical care. Critical Care time was exclusive of time spent performing separately billed procedures, treating other patients, and teaching. This time was in addition to and separate from critical care provided by other practitioners in my group on this day of service. Critical Care was necessary to treat or prevent imminent or life-threatening deterioration of the following conditions: Acute pain/acute postoperative pain Undifferentiated shock Status post CABG x4 COVID-19 pneumonia Acute hypoxic respiratory failure Protein-calorie malnutrition Hypo- or Hyperglycemia Sepsis, Pneumonia and Leukocytosis This time was spent by me doing the following: Acute pain control and Administration of sedatives and psychotropic medications Initiation/active titration of vasoactive medications Active and frequent reassessment of respiratory status and oxygen requirements, Frequent bronchodilator treatments, Non-invasive positive pressure ventilator management, Optiflow support and Prone positioning Glycemic control and Active and frequent monitoring of intake/output and volumen status Active repletion of electrolytes Obtaining appropriate cultures, Empiric broad coverage antibiotics and Review of prior or current culture/gram stain results I spent time documenting in the medical record, I spent time discussing the management of this critically ill patient with consultants and the medical staff and I spent time reviewing and interpreting data from bedside monitors, laboratory results, and imaging F FORESTER * Rosy Muñoz NP - 05/26/2021 4:37 PM CSTAssociated Order(s): Critical Care Post-Procedure Diagnose(s): ST elevation myocardial infarction (STEMI), unspecified artery (HCC); COVID Critical Care Performed by: Rosy Muñoz NP Authorized by: Rosy Muñoz NP CRITICAL CARE: Team: CHENG Shift: AM Level of Billing: Critical Care My time spent with this patient was 120 minutes: Critical Provider Statement: I have seen and examined the patient on this day of service. I have reviewed and confirmed the history, physical exam, laboratory and radiologic data as documented in thesigned ICU note. I have reviewed and discussed my treatment plan with the ICU team and other medical/environmental remediation consultant staff, making frequent assessments and decisions regarding this patient's complex medical care. Critical Care time was exclusive of time spent performing separately billed procedures, treating other patients, and teaching. This time was in addition to and separate from critical care provided by other practitioners in my group on this day of service. Critical Care was necessary to treat or prevent imminent or life-threatening deterioration of the following conditions: Poly-organism pneumonia - viral and bacterial COVID 19 viral pneumonia Acute hypoxic respiratory failure This time was spent by me doing the following: Obtaining peripheral venous access or blood draws, Serial bedside patient exams and Serial laboratory checks Frequent neurologic exams Serial neurovascular exams Active and frequent reassessment of respiratory status and oxygen requirements, Optiflow support, Incentive spirometry, pulmonary toilet, Non-invasive positive pressure ventilator management and Prone positioning Active and frequent monitoring of intake/output and volumen status, Glycemic control and Serial abdominal exams Empiric broad coverage antibiotics, Review of prior or current culture/gram stain results and Obtaining appropriate cultures I spent time reviewing and interpreting data from bedside monitors, laboratory results, and imaging, I spent time discussing the management of this critically ill patient with consultants and the medical staff and I spent time documenting in the medical record Cosigned by Dominique Wilkinson MD at 05/26/2021 7:52 PM STAFF FORESTER F FORESTER F FORESTER * Frank Dugan MD - 05/25/2021 9:14 PM CSTAssociated Order(s): Critical Care Post-Procedure Diagnose(s): Chronic obstructive pulmonary disease, unspecified COPD type (HCC); Pulmonary edema with congestive heart failure (CMS/HCC) (HCC); Pneumonia due to COVID-19 virus; Acute hypoxemic respiratory failure due to COVID-19 (CMS/HCC) ([facility]); S/P CABG x 4 Critical Care Performed by: Frank Dugan MD Authorized by: Frank Dugan MD CRITICAL CARE: Team: [facility] Shift: PM Level of Billing: Critical Care My time spent with this patient was 30 minutes: Critical Provider Statement: I have seen and examined the patient on this day of service. I have reviewed and confirmed the history, physical exam, laboratory and radiologic data as documented in thesigned ICU note. I have reviewed and discussed my treatment plan with the ICU team and other medical/environmental remediation consultant staff, making frequent assessments and decisions regarding this patient's complex medical care. Critical Care time was exclusive of time spent performing separately billed procedures, treating other patients, and teaching. This time was in addition to and separate from critical care provided by other practitioners in my group on this day of service. Critical Care was necessary to treat or prevent imminent or life-threatening deterioration of the following conditions: Acute delirium and Acute pain/acute postoperative pain Hypo- or Hyperglycemia, Acid-base disturbance, Acute kidney injury and Acute electrolyte derangement Pneumonia, Sepsis and Leukocytosis This time was spent by me doing the following: Acute pain control Active and frequent reassessment of respiratory status and oxygen requirements, Non-invasive positive pressure ventilator management, Optiflow support and Frequent bronchodilator treatments Glycemic control and Active and frequent monitoring of intake/output and volumen status Active repletion of electrolytes Obtaining appropriate cultures and Review of prior or current culture/gram stain results I spent time documenting in the medical record, I spent time discussing the management of this critically ill patient with consultants and the medical staff and I spent time reviewing and interpreting data from bedside monitors, laboratory results, and imaging F FORESTER F FORESTER * Rosy Muñoz NP - 05/25/2021 4:03 PM CSTAssociated Order(s): Critical Care Post-Procedure Diagnose(s): ST elevation myocardial infarction (STEMI), unspecified artery (HCC); COVID Critical Care Performed by: Rosy Muñoz NP Authorized by: Rosy Muñoz NP CRITICAL CARE: Team: CHENG Shift: AM Level of Billing: Critical Care My time spent with this patient was 90 minutes: Critical Provider Statement: I have seen and examined the patient on this day of service. I have reviewed and confirmed the history, physical exam, laboratory and radiologic data as documented in thesigned ICU note. I have reviewed and discussed my treatment plan with the ICU team and other medical/environmental remediation consultant staff, making frequent assessments and decisions regarding this patient's complex medical care. Critical Care time was exclusive of time spent performing separately billed procedures, treating other patients, and teaching. This time was in addition to and separate from critical care provided by other practitioners in my group on this day of service. Critical Care was necessary to treat or prevent imminent or life-threatening deterioration of the following conditions: COVID 19 viral pneumonia Acute hypoxic respiratory failure This time was spent by me doing the following: Obtaining peripheral venous access or blood draws, Serial bedside patient exams and Serial laboratory checks Frequent neurologic exams Serial neurovascular exams Active and frequent reassessment of respiratory status and oxygen requirements, Non-invasive positive pressure ventilator management, Optiflow support and Incentive spirometry, pulmonary toilet Active and frequent monitoring of intake/output and volumen status, Glycemic control and Serial abdominal exams Review of prior or current culture/gram stain results I spent time reviewing and interpreting data from bedside monitors, laboratory results, and imaging, I spent time discussing the management of this critically ill patient with consultants and the medical staff and I spent time documenting in the medical record Cosigned by Dominique Wilkinson MD at 05/26/2021 7:16 AM STAFF FORESTER F FORESTER F FORESTER * Frank Dugan MD - 05/24/2021 11:38 PM CSTAssociated Order(s): Critical Care Post-Procedure Diagnose(s): Type 2 diabetes mellitus with other specified complication, without long-term current use of insulin ([facility]); Chronic obstructive pulmonary disease, unspecified COPD type ([facility]); Pneumonia due to COVID-19 virus; Acute hypoxemic respiratory failure due to COVID-19 (CMS/HCC) ( [facility]); S/P CABG x 4; ST elevation myocardial infarction involving left circumflex coronary artery ([facility]) Critical Care Performed by: Frank Dugan MD Authorized by: Frank Dugan MD CRITICAL CARE: Team: CHENG Shift: PM Level of Billing: Critical Care My time spent with this patient was 30 minutes: Critical Provider Statement: I have seen and examined the patient on this day of service. I have reviewed and confirmed the history, physical exam, laboratory and radiologic data as documented in thesigned ICU note. I have reviewed and discussed my treatment plan with the ICU team and other medical/environmental remediation consultant staff, making frequent assessments and decisions regarding this patient's complex medical care. Critical Care time was exclusive of time spent performing separately billed procedures, treating other patients, and teaching. This time was in addition to and separate from critical care provided by other practitioners in my group on this day of service. Critical Care was necessary to treat or prevent imminent or life-threatening deterioration of the following conditions: Acute hypoxic respiratory failure Hypo- or Hyperglycemia Sepsis, Pneumonia and Leukocytosis This time was spent by me doing the following: Acute pain control Active and frequent reassessment of respiratory status and oxygen requirements, Incentive spirometry, pulmonary toilet, Frequent bronchodilator treatments, Non- invasive positive pressure ventilator management and Optiflow support Active and frequent monitoring of intake/output and volumen status and Glycemic control Active repletion of electrolytes Review of prior or current culture/gram stain results and Obtaining appropriate cultures I spent time documenting in the medical record F FORESTER * Silviano Huddleston NP - 05/24/2021 1:50 PM CSTAssociated Order(s): Critical Care Post-Procedure Diagnose(s): ST elevation myocardial infarction (STEMI), unspecified artery (HCC) Critical Care Performed by: Silviano Huddleston NP Authorized by: Silviano Huddleston NP CRITICAL CARE: Team: CHENG Shift: AM Level of Billing: Critical Care My time spent with this patient was 95 minutes: Critical Provider Statement: I have seen and examined the patient on this day of service. I have reviewed and confirmed the history, physical exam, laboratory and radiologic data as documented in thesigned ICU note. I have reviewed and discussed my treatment plan with the ICU team and other medical/environmental remediation consultant staff, making frequent assessments and decisions regarding this patient's complex medical care. Critical Care time was exclusive of time spent performing separately billed procedures, treating other patients, and teaching. This time was in addition to and separate from critical care provided by other practitioners in my group on this day of service. Critical Care was necessary to treat or prevent imminent or life-threatening deterioration of the following conditions: Acute hypoxic respiratory failure Leukocytosis and Pneumonia This time was spent by me doing the following: Obtaining peripheral venous access or blood draws Active and frequent reassessment of respiratory status and oxygen requirements and Optiflow support Active and frequent monitoring of intake/output and volumen status Review of prior or current culture/gram stain results I spent time reviewing and interpreting data from bedside monitors, laboratory results, and imaging, I spent time discussing the management of this critically ill patient with consultants and the medical staff and I spent time documenting in the medical record Cosigned by Dominique Wilkinson MD at 05/25/2021 10:52 AM STAFF FORESTER F FORESTER F FORESTER * Frank Dugan MD - 05/23/2021 8:57 PM CSTAssociated Order(s): Critical Care Post-Procedure Diagnose(s): ST elevation myocardial infarction involving left anterior descending (LAD) coronary artery (HCC); Chronic obstructive pulmonary disease, unspecified COPD type (HCC); Pneumonia due to COVID-19 virus; Acute hypoxemic respiratory failure due to COVID-19 (CMS/HCC) (HCC); S/P CABG x 4; ST elevation myocardial infarction involving left circumflex coronary artery (HCC) Critical Care Performed by: Frank Dugan MD Authorized by: Frank Dugan MD CRITICAL CARE: Team: CHENG Shift: PM Level of Billing: Critical Care My time spent with this patient was 35 minutes: Critical Provider Statement: I have seen and examined the patient on this day of service. I have reviewed and confirmed the history, physical exam, laboratory and radiologic data as documented in thesigned ICU note. I have reviewed and discussed my treatment plan with the ICU team and other medical/environmental remediation consultant staff, making frequent assessments and decisions regarding this patient's complex medical care. Critical Care time was exclusive of time spent performing separately billed procedures, treating other patients, and teaching. This time was in addition to and separate from critical care provided by other practitioners in my group on this day of service. Critical Care was necessary to treat or prevent imminent or life-threatening deterioration of the following conditions: Acute hypercarbic respiratory failure, Acute hypoxic respiratory failure and Acute Respiratory Distress Syndrome (ARDS) Hypo- or Hyperglycemia Leukocytosis, Pneumonia and Sepsis This time was spent by me doing the following: Administration of sedatives and psychotropic medications Incentive spirometry, pulmonary toilet and Optiflow support Active and frequent monitoring of intake/output and volumen status and Glycemic control Active diuresis and Active repletion of electrolytes Empiric broad coverage antibiotics, Obtaining appropriate cultures and Review of prior or current culture/gram stain results I spent time discussing the management of this critically ill patient with consultants and the medical staff, I spent time reviewing and interpreting data from bedside monitors, laboratory results, and imaging and I spent time documenting in the medical record F FORESTER * Silviano Huddleston NP - 05/23/2021 3:32 PM CSTAssociated Order(s): Critical Care Post-Procedure Diagnose(s): Pneumonia due to COVID-19 virus Critical Care Performed by: Silviano Huddleston NP Authorized by: Silviano Huddleston NP CRITICAL CARE: Team: BISHOP Shift: AM Level of Billing: Critical Care My time spent with this patient was 110 minutes: Critical Provider Statement: I have seen and examined the patient on this day of service. I have reviewed and confirmed the history, physical exam, laboratory and radiologic data as documented in thesigned ICU note. I have reviewed and discussed my treatment plan with the ICU team and other medical/environmental remediation consultant staff, making frequent assessments and decisions regarding this patient's complex medical care. Critical Care time was exclusive of time spent performing separately billed procedures, treating other patients, and teaching. This time was in addition to and separate from critical care provided by other practitioners in my group on this day of service. Critical Care was necessary to treat or prevent imminent or life-threatening deterioration of the following conditions: Acute hypoxic respiratory failure Hypo- or Hyperglycemia Pneumonia This time was spent by me doing the following: Active and frequent reassessment of respiratory status and oxygen requirements and Optiflow support Glycemic control Review of prior or current culture/gram stain results I spent time reviewing and interpreting data from bedside monitors, laboratory results, and imaging, I spent time discussing the management of this critically ill patient with consultants and the medical staff and I spent time documenting in the medical record Cosigned by Dominique Wilkinson MD at 05/25/2021 10:52 AM STAFF FORESTER F FORESTER F FORESTER * Frank Dugan MD - 05/22/2021 11:35 PM CSTAssociated Order(s): Critical Care Post-Procedure Diagnose(s): Chronic obstructive pulmonary disease, unspecified COPD type (HCC); Pneumonia due to COVID-19 virus; Acute hypoxemic respiratory failure due to COVID-19 (CMS/HCC) (HCC) Critical Care Performed by: Frank Dugan MD Authorized by: Frank Dugan MD CRITICAL CARE: Team: CHENG Shift: PM Level of Billing: Critical Care My time spent with this patient was 40 minutes: Critical Provider Statement: I have seen and examined the patient on this day of service. I have reviewed and confirmed the history, physical exam, laboratory and radiologic data as documented in thesigned ICU note. I have reviewed and discussed my treatment plan with the ICU team and other medical/environmental remediation consultant staff, making frequent assessments and decisions regarding this patient's complex medical care. Critical Care time was exclusive of time spent performing separately billed procedures, treating other patients, and teaching. This time was in addition to and separate from critical care provided by other practitioners in my group on this day of service. Critical Care was necessary to treat or prevent imminent or life-threatening deterioration of the following conditions: Acute pain/acute postoperative pain Post CABG x4 COVID-19 pneumonia Acute hypoxic respiratory failure and Acute hypercarbic respiratory failure Hypo- or Hyperglycemia Leukocytosis, Sepsis and Pneumonia This time was spent by me doing the following: Acute pain control and Administration of sedatives and psychotropic medications Optiflow support, Non-invasive positive pressure ventilator management and Active and frequent reassessment of respiratory status and oxygen requirements Active and frequent monitoring of intake/output and volumen status and Glycemic control Active repletion of electrolytes Review of prior or current culture/gram stain results and Obtaining appropriate cultures I spent time discussing the management of this critically ill patient with consultants and the medical staff, I spent time reviewing and interpreting data from bedside monitors, laboratory results, and imaging and I spent time documenting in the medical record F FORESTER * Silviano Huddleston NP - 05/22/2021 7:44 AM CSTAssociated Order(s): Critical Care Post-Procedure Diagnose(s): ST elevation myocardial infarction (STEMI), unspecified artery (HCC) Critical Care Performed by: Silviano Huddleston NP Authorized by: Silviano Huddleston NP CRITICAL CARE: Team: CHENG Shift: AM Level of Billing: Critical Care My time spent with this patient was 115 minutes: Critical Provider Statement: I have seen and examined the patient on this day of service. I have reviewed and confirmed the history, physical exam, laboratory and radiologic data as documented in thesigned ICU note. I have reviewed and discussed my treatment plan with the ICU team and other medical/environmental remediation consultant staff, making frequent assessments and decisions regarding this patient's complex medical care. Critical Care time was exclusive of time spent performing separately billed procedures, treating other patients, and teaching. This time was in addition to and separate from critical care provided by other practitioners in my group on this day of service. Critical Care was necessary to treat or prevent imminent or life-threatening deterioration of the following conditions: Acute delirium Atelectasis and Acute hypoxic respiratory failure Acid-base disturbance, Hypo- or Hyperglycemia and Acute electrolyte derangement Leukocytosis and Pneumonia This time was spent by me doing the following: Obtaining peripheral venous access or blood draws and Serial laboratory checks Acute pain control Active and frequent reassessment of respiratory status and oxygen requirements and Optiflow support Active and frequent monitoring of intake/output and volumen status I spent time reviewing and interpreting data from bedside monitors, laboratory results, and imaging, I spent time discussing the management of this critically ill patient with consultants and the medical staff and I spent time documenting in the medical record Cosigned by Alexandru Porter MD at 05/29/2021 6:01 PM STAFF FORESTER F FORESTER F FORESTER * Jose Conti MD - 05/21/2021 11:31 PM CSTAssociated Order(s): Critical Care Post-Procedure Diagnose(s): Pneumonia due to COVID-19 virus Critical Care Performed by: Jose Conti MD Authorized by: Jose Conti MD CRITICAL CARE: Team: CHNE Shift: PM Level of Billing: Critical Care My time spent with this patient was 30 minutes: Critical Provider Statement: I have seen and examined the patient on this day of service. I have reviewed and confirmed the history, physical exam, laboratory and radiologic data as documented in thesigned ICU note. I have reviewed and discussed my treatment plan with the ICU team and other medical/environmental remediation consultant staff, making frequent assessments and decisions regarding this patient's complex medical care. Critical Care time was exclusive of time spent performing separately billed procedures, treating other patients, and teaching. This time was in addition to and separate from critical care provided by other practitioners in my group on this day of service. Critical Care was necessary to treat or prevent imminent or life-threatening deterioration of the following conditions: covid-19 pneumonia Acute hypoxic respiratory failure Hypo- or Hyperglycemia This time was spent by me doing the following: Active and frequent reassessment of respiratory status and oxygen requirements and Optiflow support Active and frequent monitoring of intake/output and volumen status and Glycemic control Active diuresis I spent time reviewing and interpreting data from bedside monitors, laboratory results, and imaging, I spent time discussing the management of this critically ill patient with consultants and the medical staff and I spent time documenting in the medical record F FORESTER * Silviano Huddleston NP - 05/21/2021 8:00 AM CSTAssociated Order(s): Critical Care Post-Procedure Diagnose(s): Pulmonary edema with congestive heart failure (CMS/HCC) (HCC) Critical Care Performed by: Silviano Huddleston NP Authorized by: Silviano Huddleston NP CRITICAL CARE: Team: CHENG Shift: AM Level of Billing: Critical Care My time spent with this patient was 75 minutes: Critical Provider Statement: I have seen and examined the patient on this day of service. I have reviewed and confirmed the history, physical exam, laboratory and radiologic data as documented in thesigned ICU note. I have reviewed and discussed my treatment plan with the ICU team and other medical/environmental remediation consultant staff, making frequent assessments and decisions regarding this patient's complex medical care. Critical Care time was exclusive of time spent performing separately billed procedures, treating other patients, and teaching. This time was in addition to and separate from critical care provided by other practitioners in my group on this day of service. Critical Care was necessary to treat or prevent imminent or life-threatening deterioration of the following conditions: Acute hypoxic respiratory failure This time was spent by me doing the following: Obtaining peripheral venous access or blood draws and Serial laboratory checks Active and frequent reassessment of respiratory status and oxygen requirements and Optiflow support Active and frequent monitoring of intake/output and volumen status and Enteral tube feeding management I spent time reviewing and interpreting data from bedside monitors, laboratory results, and imaging, I spent time discussing the management of this critically ill patient with consultants and the medical staff, I spent time documenting in the medical record, I spent time talking to this patient's relatives to obtain additional medical history due to patient's inabililty to provide history and I spent time talking to this patient's surrogate decision maker to determine treatment plans due to patient's inability to participate in decision making Cosigned by Alexandru Porter MD at 05/22/2021 1:14 PM STAFF FORESTER F FORESTER F FORESTER * Jose Conti MD - 05/20/2021 11:33 PM CSTAssociated Order(s): Critical Care Post-Procedure Diagnose(s): Pneumonia due to COVID-19 virus Critical Care Performed by: Jose Conti MD Authorized by: Jose Conti MD CRITICAL CARE: Team: CHENG Shift: PM Level of Billing: Critical Care My time spent with this patient was 30 minutes: Critical Provider Statement: I have seen and examined the patient on this day of service. I have reviewed and confirmed the history, physical exam, laboratory and radiologic data as documented in thesigned ICU note. I have reviewed and discussed my treatment plan with the ICU team and other medical/environmental remediation consultant staff, making frequent assessments and decisions regarding this patient's complex medical care. Critical Care time was exclusive of time spent performing separately billed procedures, treating other patients, and teaching. This time was in addition to and separate from critical care provided by other practitioners in my group on this day of service. Critical Care was necessary to treat or prevent imminent or life-threatening deterioration of the following conditions: covid-19 pneumonia Acute hypoxic respiratory failure and Pulmonary edema This time was spent by me doing the following: Serial bedside patient exams and Serial laboratory checks Active and frequent reassessment of respiratory status and oxygen requirements, Optiflow support and Incentive spirometry, pulmonary toilet Active and frequent monitoring of intake/output and volumen status Active diuresis I spent time reviewing and interpreting data from bedside monitors, laboratory results, and imaging, I spent time discussing the management of this critically ill patient with consultants and the medical staff and I spent time documenting in the medical record F FORESTER F FORESTER * Silviano Huddleston NP - 05/20/2021 8:00 AM CSTAssociated Order(s): Critical Care Post-Procedure Diagnose(s): ST elevation myocardial infarction (STEMI), unspecified artery (HCC) Critical Care Performed by: Silviano Huddleston NP Authorized by: Silviano Huddleston NP CRITICAL CARE: Team: [facility] Shift: AM Level of Billing: Critical Care My time spent with this patient was 95 minutes: Critical Provider Statement: I have seen and examined the patient on this day of service. I have reviewed and confirmed the history, physical exam, laboratory and radiologic data as documented in thesigned ICU note. I have reviewed and discussed my treatment plan with the ICU team and other medical/environmental remediation consultant staff, making frequent assessments and decisions regarding this patient's complex medical care. Critical Care time was exclusive of time spent performing separately billed procedures, treating other patients, and teaching. This time was in addition to and separate from critical care provided by other practitioners in my group on this day of service. Critical Care was necessary to treat or prevent imminent or life-threatening deterioration of the following conditions: Acute hypoxic respiratory failure Hypo- or Hyperglycemia and Acid-base disturbance Pneumonia This time was spent by me doing the following: Obtaining peripheral venous access or blood draws, Serial bedside patient exams, Serial laboratory checks and Resuscitation with fluids Active and frequent reassessment of respiratory status and oxygen requirements, Non-invasive positive pressure ventilator management and Optiflow support Active and frequent monitoring of intake/output and volumen status and Glycemic control Active repletion of electrolytes Review of prior or current culture/gram stain results I spent time reviewing and interpreting data from bedside monitors, laboratory results, and imaging, I spent time discussing the management of this critically ill patient with consultants and the medical staff and I spent time documenting in the medical record Cosigned by Alexandru Porter MD at 05/20/2021 6:02 PM STAFF FORESTER F FORESTER F FORESTER * Elena Kelly NP - 05/19/2021 7:00 PM CSTAssociated Order(s): Critical Care Post-Procedure Diagnose(s): ST elevation myocardial infarction (STEMI), unspecified artery (HCC) Critical Care Performed by: Elena Kelly NP Authorized by: Elena Kelly NP CRITICAL CARE: Team: CHENG Shift: PM Level of Billing: Critical Care My time spent with this patient was 75 minutes: Critical Provider Statement: I have seen and examined the patient on this day of service. I have reviewed and confirmed the history, physical exam, laboratory and radiologic data as documented in thesigned ICU note. I have reviewed and discussed my treatment plan with the ICU team and other medical/environmental remediation consultant staff, making frequent assessments and decisions regarding this patient's complex medical care. Critical Care time was exclusive of time spent performing separately billed procedures, treating other patients, and teaching. This time was in addition to and separate from critical care provided by other practitioners in my group on this day of service. Critical Care was necessary to treat or prevent imminent or life-threatening deterioration of the following conditions: Hypotension and ST-Elevation myocardial infarction (STEMI) Pulmonary edema and Acute hypoxic respiratory failure Acid-base disturbance, Acute kidney injury, Acute electrolyte derangement and Hypo- or Hyperglycemia Acute blood loss anemia Pneumonia This time was spent by me doing the following: Acute pain control Interpretation of cardiac output measurements and Initiation/active titration of vasoactive medications Active and frequent reassessment of respiratory status and oxygen requirements, Supplemental oxygenvia mask and Incentive spirometry, pulmonary toilet Active and frequent monitoring of intake/output and volumen status and Glycemic control Active diuresis and Active repletion of electrolytes Review of prior or current culture/gram stain results Non-invasive positive pressure ventilator management I spent time reviewing and interpreting data from bedside monitors, laboratory results, and imaging, I spent time discussing the management of this critically ill patient with consultants and the medical staff and I spent time documenting in the medical record Cosigned by Jose Conti MD at 05/22/2021 12:26 AM STAFF FORESTER F FORESTER F FORESTER * Elena Kelly NP - 05/18/2021 7:00 PM CSTAssociated Order(s): Critical Care Post-Procedure Diagnose(s): ST elevation myocardial infarction (STEMI), unspecified artery (HCC) Critical Care Performed by: Elena Kelly NP Authorized by: Elena Kelly NP CRITICAL CARE: Team: BISHOP Shift: PM Level of Billing: Critical Care My time spent with this patient was 75 minutes: Critical Provider Statement: I have seen and examined the patient on this day of service. I have reviewed and confirmed the history, physical exam, laboratory and radiologic data as documented in thesigned ICU note. I have reviewed and discussed my treatment plan with the ICU team and other medical/environmental remediation consultant staff, making frequent assessments and decisions regarding this patient's complex medical care. Critical Care time was exclusive of time spent performing separately billed procedures, treating other patients, and teaching. This time was in addition to and separate from critical care provided by other practitioners in my group on this day of service. Critical Care was necessary to treat or prevent imminent or life-threatening deterioration of the following conditions: Hypotension and ST-Elevation myocardial infarction (STEMI) Pulmonary edema and Acute hypoxic respiratory failure Acid-base disturbance, Acute kidney injury, Acute electrolyte derangement and Hypo- or Hyperglycemia Acute blood loss anemia This time was spent by me doing the following: Acute pain control Interpretation of cardiac output measurements and Initiation/active titration of vasoactive medications Active and frequent reassessment of respiratory status and oxygen requirements, Supplemental oxygenvia mask and Incentive spirometry, pulmonary toilet Active and frequent monitoring of intake/output and volumen status and Glycemic control Active diuresis and Active repletion of electrolytes Review of prior or current culture/gram stain results Non-invasive positive pressure ventilator management I spent time reviewing and interpreting data from bedside monitors, laboratory results, and imaging, I spent time discussing the management of this critically ill patient with consultants and the medical staff and I spent time documenting in the medical record Cosigned by Jose Conti MD at 05/19/2021 6:25 AM STAFF FORESTER F FORESTER F FORESTER * Caleb Toth PA - 05/18/2021 10:32 AM CSTAssociated Order(s): Critical Care Post-Procedure Diagnose(s): ST elevation myocardial infarction (STEMI), unspecified artery (HCC) Critical Care Performed by: Caleb Toth PA Authorized by: Caleb Toth PA CRITICAL CARE: Team: BISHOP Shift: AM Level of Billing: Critical Care My time spent with this patient was 80 minutes: Critical Provider Statement: I have seen and examined the patient on this day of service. I have reviewed and confirmed the history, physical exam, laboratory and radiologic data as documented in thesigned ICU note. I have reviewed and discussed my treatment plan with the ICU team and other medical/environmental remediation consultant staff, making frequent assessments and decisions regarding this patient's complex medical care. Critical Care time was exclusive of time spent performing separately billed procedures, treating other patients, and teaching. This time was in addition to and separate from critical care provided by other practitioners in my group on this day of service. Critical Care was necessary to treat or prevent imminent or life-threatening deterioration of the following conditions: Undifferentiated shock Acute hypoxic respiratory failure This time was spent by me doing the following: Serial bedside patient exams and Serial laboratory checks Initiation/active titration of vasoactive medications Active and frequent reassessment of respiratory status and oxygen requirements I spent time discussing the management of this critically ill patient with consultants and the medical staff, I spent time documenting in the medical record and I spent time reviewing and interpreting data from bedside monitors, laboratory results, and imaging Cosigned by Alexandru Porter MD at 05/19/2021 6:17 PM STAFF FORESTER F FORESTER F FORESTER * Elena Kelly NP - 05/17/2021 7:00 PM CSTAssociated Order(s): Critical Care Post-Procedure Diagnose(s): ST elevation myocardial infarction (STEMI), unspecified artery (HCC) Critical Care Performed by: Elena Kelly NP Authorized by: Elena Kelly NP CRITICAL CARE: Team: BISHOP Shift: PM Level of Billing: Critical Care My time spent with this patient was 85 minutes: Critical Provider Statement: I have seen and examined the patient on this day of service. I have reviewed and confirmed the history, physical exam, laboratory and radiologic data as documented in thesigned ICU note. I have reviewed and discussed my treatment plan with the ICU team and other medical/environmental remediation consultant staff, making frequent assessments and decisions regarding this patient's complex medical care. Critical Care time was exclusive of time spent performing separately billed procedures, treating other patients, and teaching. This time was in addition to and separate from critical care provided by other practitioners in my group on this day of service. Critical Care was necessary to treat or prevent imminent or life-threatening deterioration of the following conditions: Hypotension and ST-Elevation myocardial infarction (STEMI) Pulmonary edema and Acute hypoxic respiratory failure Acid-base disturbance, Acute kidney injury, Acute electrolyte derangement and Hypo- or Hyperglycemia Acute blood loss anemia This time was spent by me doing the following: Serial laboratory checks Acute pain control Interpretation of cardiac output measurements and Initiation/active titration of vasoactive medications Active and frequent reassessment of respiratory status and oxygen requirements, Supplemental oxygenvia mask and Incentive spirometry, pulmonary toilet Active and frequent monitoring of intake/output and volumen status and Glycemic control Active diuresis and Active repletion of electrolytes Review of prior or current culture/gram stain results I spent time reviewing and interpreting data from bedside monitors, laboratory results, and imaging, I spent time discussing the management of this critically ill patient with consultants and the medical staff and I spent time documenting in the medical record Cosigned by Jose Conti MD at 05/18/2021 6:21 AM STAFF FORESTER F FORESTER F FORESTER * Caleb Toth PA - 05/17/2021 8:04 AM CSTAssociated Order(s): Critical Care Post-Procedure Diagnose(s): ST elevation myocardial infarction (STEMI), unspecified artery (HCC) Critical Care Performed by: Caleb Toth PA Authorized by: Caleb Toth PA CRITICAL CARE: Team: CHENG Shift: AM Level of Billing: Subsequent Hospital Visit Level 3 My time spent with this patient was 60 minutes: Critical Provider Statement: I have seen and examined the patient on this day of service. I have reviewed and confirmed the history, physical exam, laboratory, and radiographic data as documented in the ICU note. I have reviewed and discussed my treatment plan with the patient's team and other medical/environmental remediation consultant staff. This time was in addition to and separate from care provided by other practitioners on this day of service. Cosigned by Alexandru Porter MD at 05/17/2021 6:10 PM STAFF FORESTER F FORESTER F FORESTER * Jose Conti MD - 05/17/2021 3:31 AM CSTAssociated Order(s): Critical Care Post-Procedure Diagnose(s): Pulmonary edema with congestive heart failure (CMS/HCC) (HCC) Critical Care Performed by: Jose Conti MD Authorized by: Jose Conti MD CRITICAL CARE: Team: CHENG Shift: PM Level of Billing: Critical Care My time spent with this patient was 60 minutes: Critical Provider Statement: I have seen and examined the patient on this day of service. I have reviewed and confirmed the history, physical exam, laboratory and radiologic data as documented in thesigned ICU note. I have reviewed and discussed my treatment plan with the ICU team and other medical/environmental remediation consultant staff, making frequent assessments and decisions regarding this patient's complex medical care. Critical Care time was exclusive of time spent performing separately billed procedures, treating other patients, and teaching. This time was in addition to and separate from critical care provided by other practitioners in my group on this day of service. Critical Care was necessary to treat or prevent imminent or life-threatening deterioration of the following conditions: Acute congestive heart failure excerbation (CHF) Acute respiratory failure following procedure/surgery, Acute hypoxic respiratory failure and Pulmonary edema This time was spent by me doing the following: Serial laboratory checks and Serial bedside patient exams Active and frequent reassessment of respiratory status and oxygen requirements, Supplemental oxygenvia mask and Incentive spirometry, pulmonary toilet Active and frequent monitoring of intake/output and volumen status Active diuresis and Active repletion of electrolytes Review of prior or current culture/gram stain results I spent time reviewing and interpreting data from bedside monitors, laboratory results, and imaging, I spent time discussing the management of this critically ill patient with consultants and the medical staff and I spent time documenting in the medical record F FORESTER * Domenica Rod MD - 05/07/2021 3:37 PM CSTAssociated Order(s): Critical Care Post-Procedure Diagnose(s): ST elevation myocardial infarction (STEMI), unspecified artery (HCC) Critical Care Performed by: Domenica Rod MD Authorized by: Domenica Rod MD CRITICAL CARE: Team: CHENG Shift: AM Level of Billing: Critical Care My time spent with this patient was 40 minutes: Critical Provider Statement: I have seen and examined the patient on this day of service. I have reviewed and confirmed the history, physical exam, laboratory and radiologic data as documented in thesigned ICU note. I have reviewed and discussed my treatment plan with the ICU team and other medical/environmental remediation consultant staff, making frequent assessments and decisions regarding this patient's complex medical care. Critical Care time was exclusive of time spent performing separately billed procedures, treating other patients, and teaching. This time was in addition to and separate from critical care provided by other practitioners in my group on this day of service. Critical Care was necessary to treat or prevent imminent or life-threatening deterioration of the following conditions: Cardiogenic shock Acute respiratory insufficiency This time was spent by me doing the following: Initiation/active titration of inotropic medications Optiflow support I spent time reviewing and interpreting data from bedside monitors, laboratory results, and imaging, I spent time discussing the management of this critically ill patient with consultants and the medical staff and I spent time documenting in the medical record Domenica Rod MD [facility] Department of Anesthesiology and Critical Care F FORESTER * Wally Aguilar DO - 05/05/2021 11:05 PM CSTAssociated Order(s): Critical Care Post-Procedure Diagnose(s): ST elevation myocardial infarction (STEMI), unspecified artery (HCC); Gross hematuria; Chronic obstructive pulmonary disease, unspecified COPD type (HCC) Critical Care Performed by: Wally Aguilar DO Authorized by: Wally Aguilar DO CRITICAL CARE: Team: CHENG Shift: PM Level of Billing: Critical Care My time spent with this patient was 40 minutes: Critical Provider Statement: I have seen and examined the patient on this day of service. I have reviewed and confirmed the history, physical exam, laboratory and radiologic data as documented in thesigned ICU note. I have reviewed and discussed my treatment plan with the ICU team and other medical/environmental remediation consultant staff, making frequent assessments and decisions regarding this patient's complex medical care. Critical Care time was exclusive of time spent performing separately billed procedures, treating other patients, and teaching. This time was in addition to and separate from critical care provided by other practitioners in my group on this day of service. Critical Care was necessary to treat or prevent imminent or life-threatening deterioration of the following conditions: Encephalopathy/altered mental status and Acute delirium Cardiogenic shock and ST-Elevation myocardial infarction (STEMI) Acute respiratory failure following procedure/surgery Acute blood loss anemia This time was spent by me doing the following: Serial bedside patient exams Acute pain control Initiation/active titration of vasoactive medications, Cardiac pacing, Electrical/chemical cardioversion and Interpretation of cardiac output measurements Active and frequent reassessment of respiratory status and oxygen requirements and Non-invasive positive pressure ventilator management Active and frequent monitoring of intake/output and volumen status Empiric broad coverage antibiotics and Review of prior or current culture/gram stain results I spent time reviewing and interpreting data from bedside monitors, laboratory results, and imaging, I spent time discussing the management of this critically ill patient with consultants and the medical staff and I spent time documenting in the medical record F FORESTER F FORESTER * Frank Dugan MD - 05/05/2021 12:25 PM CSTAssociated Order(s): Critical Care Post-Procedure Diagnose(s): Gross hematuria; Primary hypertension; PVD (peripheral vascular disease) (HCC); Type 2 diabetes mellitus with other specified complication, without long-term current use of insulin (HCC); ST elevation myocardial infarction involving left anterior descending (LAD) coronary artery (HCC); Chronic obstructive pulmonary disease, unspecified COPD type (HCC) Critical Care Performed by: Frank Dugan MD Authorized by: Frank Dugan MD CRITICAL CARE: Team: CHENG Shift: AM Level of Billing: Critical Care My time spent with this patient was 60 minutes: Critical Provider Statement: I have seen and examined the patient on this day of service. I have reviewed and confirmed the history, physical exam, laboratory and radiologic data as documented in thesigned ICU note. I have reviewed and discussed my treatment plan with the ICU team and other medical/environmental remediation consultant staff, making frequent assessments and decisions regarding this patient's complex medical care. Critical Care time was exclusive of time spent performing separately billed procedures, treating other patients, and teaching. This time was in addition to and separate from critical care provided by other practitioners in my group on this day of service. Critical Care was necessary to treat or prevent imminent or life-threatening deterioration of the following conditions: Acute delirium and Encephalopathy/altered mental status Vasoplegic shock and ST-Elevation myocardial infarction (STEMI) S/P CABG X 4 Increasing FIO2/PEEP requirement overnight COPD Acute hypoxic respiratory failure Hypo- or Hyperglycemia Acute blood loss anemia Leukocytosis This time was spent by me doing the following: Serial bedside patient exams Acute pain control and Frequent neurologic exams Initiation/active titration of inotropic medications and Initiation/active titration of vasoactive medications Active and frequent reassessment of respiratory status and oxygen requirements, Optiflow support, Non-invasive positive pressure ventilator management, Incentive spirometry, pulmonary toilet and Frequent bronchodilator treatments Active and frequent monitoring of intake/output and volumen status and Glycemic control Active repletion of electrolytes and Active diuresis Obtaining appropriate cultures and Review of prior or current culture/gram stain results I spent time documenting in the medical record, I spent time discussing the management of this critically ill patient with consultants and the medical staff and I spent time reviewing and interpreting data from bedside monitors, laboratory results, and imaging F FORESTER * Wally Aguilar DO - 05/05/2021 2:26 AM CST Procedures Procedure: CPR Indication: Cardiac arrest I was called to the bedside as the patient was getting rolled for a bath and suddenly became profoundly hypotensive and lost pulses. Nursing had already maxed out the atrial output on the epicardial pacemaker. CPR was started prior to my arrival and continued. Norepinephrine was increased briefly to 0.4 mcg per kg per minute. No initial rhythm was able to be noted due to the pacemaker firing. We immediately changed the pacer to DDO and we were able to get return of spontaneous circulation. We subsequently switched to DDI with good capture. The pressors were titrated back down. The patient wasabout to get a unit of blood prior to this event and the transfusion will now be started. A full set of labs is being sent. Bedside echocardiogram demonstrated a normal size RV and mildly reduced LV function. There is a trace pericardial effusion. The left and right atria were unable to be visualized. Dr. Lopes from CT surgery was notified. I personally supervised CPR. This is separate from the billed critical care time. F FORESTER * Wally Aguilar DO - 05/04/2021 8:13 PM CSTAssociated Order(s): Critical Care Post-Procedure Diagnose(s): ST elevation myocardial infarction (STEMI), unspecified artery (HCC); Gross hematuria; Type 2 diabetes mellitus with other specified complication, without long-term current use of insulin (HCC) Critical Care Performed by: Wally Aguilar DO Authorized by: Wally Aguilar DO CRITICAL CARE: Team: CHENG Shift: PM Level of Billing: Critical Care My time spent with this patient was 100 minutes: Critical Provider Statement: I have seen and examined the patient on this day of service. I have reviewed and confirmed the history, physical exam, laboratory and radiologic data as documented in thesigned ICU note. I have reviewed and discussed my treatment plan with the ICU team and other medical/environmental remediation consultant staff, making frequent assessments and decisions regarding this patient's complex medical care. Critical Care time was exclusive of time spent performing separately billed procedures, treating other patients, and teaching. This time was in addition to and separate from critical care provided by other practitioners in my group on this day of service. Critical Care was necessary to treat or prevent imminent or life-threatening deterioration of the following conditions: Acute pain/acute postoperative pain and Agitation requiring sedation Cardiogenic shock, Hypovolemic shock, Hemorrhagic shock and ST-Elevation myocardial infarction (STEMI) Hematuria with bladder outlet obstruction Acute respiratory insufficiency Hypo- or hyperthermia This time was spent by me doing the following: Serial bedside patient exams Administration of sedatives and psychotropic medications, Acute pain control and Active titration of continuous sedation Cardiac pacing, Initiation/active titration of vasoactive medications, Initiation/active titration of inotropic medications and Interpretation of cardiac output measurements Continuous bladder irrigation Active and frequent reassessment of respiratory status and oxygen requirements and Invasive ventilator management, reassessment, and titration Active and frequent monitoring of intake/output and volumen status and Gastric tube placement and interpretation of results/output Transfusion of blood products and Replacement of coagulation factors I spent time reviewing and interpreting data from bedside monitors, laboratory results, and imaging, I spent time discussing the management of this critically ill patient with consultants and the medical staff and I spent time documenting in the medical record F FORESTER * Frank Dugan MD - 05/04/2021 10:31 AM CSTAssociated Order(s): Critical Care Post-Procedure Diagnose(s): Gross hematuria; PVD (peripheral vascular disease) (HCC); Type 2 diabetes mellitus with other specified complication, without long- term current use of insulin (HCC); ST elevation myocardial infarction involving left anterior descending (LAD) coronary artery (HCC); Chronic obstructive pulmonary disease, unspecified COPD type (HCC) Critical Care Performed by: Frank Dugan MD Authorized by: Farnk Dugan MD CRITICAL CARE: Team: CHENG Shift: AM Level of Billing: Critical Care My time spent with this patient was 35 minutes: Critical Provider Statement: I have seen and examined the patient on this day of service. I have reviewed and confirmed the history, physical exam, laboratory and radiologic data as documented in thesigned ICU note. I have reviewed and discussed my treatment plan with the ICU team and other medical/environmental remediation consultant staff, making frequent assessments and decisions regarding this patient's complex medical care. Critical Care time was exclusive of time spent performing separately billed procedures, treating other patients, and teaching. This time was in addition to and separate from critical care provided by other practitioners in my group on this day of service. Critical Care was necessary to treat or prevent imminent or life-threatening deterioration of the following conditions: Acute pain/acute postoperative pain ST-Elevation myocardial infarction (STEMI) IABP in place COPD Hematuria Acute kidney injury and Hypo- or Hyperglycemia Acute blood loss anemia Leukocytosis This time was spent by me doing the following: Acute pain control Active and frequent reassessment of respiratory status and oxygen requirements, Incentive spirometry, pulmonary toilet and Frequent bronchodilator treatments Glycemic control and Active and frequent monitoring of intake/output and volumen status Active repletion of electrolytes and Active diuresis Obtaining appropriate cultures and Review of prior or current culture/gram stain results I spent time documenting in the medical record, I spent time discussing the management of this critically ill patient with consultants and the medical staff and I spent time reviewing and interpreting data from bedside monitors, laboratory results, and imaging F FORESTER * Nalini Clayton MD - 05/04/2021 12:00 AM CST Mr. Alvarado is a 60-year-old male who presented with acute anterior wall myocardial infarction. He hada history of previous coronary artery disease and had 2 layers of stent put in his proximal and midLAD, Taxus in 2006 and [place] in 2009. Moderate-sized diagonal was jailed by the Taxus stent and this diagonal had a stent in the ostium extending into the proximal segment also. Angiogram revealed complete occlusion of the proximal part of the LAD. After the left main was engaged with a 6-German CLS 3.5 guide, a 0.014, 190 cm Sarabjit blue wire was then passed through the occluded stents in the proximal and mid segment and placed in the distal vessel. Angiogram done at this point revealed there is a mild dilatation of the proximal part of the LAD at the site of previous Taxus stent as well as severe diffuse disease involving the stented segment in the proximal and mid partof the vessel and a 90% stenosis in the proximal part of the diagonal. A 3.0 x 15 Orlinda Scientific[employer]merge balloon was placed in the proximal and mid segment of the LAD and inflated at 14 atmospheres. Angiogram done at this point revealed evangelical of flow in the LAD and the diagonal. The distal segment of the LAD was occluded, likely as a result of clot migration from the proximal to the distal segment. A second 0.014 Sarabjit blue wire was then manipulated after a great degree of difficulty into the diagonal branch. A 2.5 x 8 balloon was then placed but was unable to completely cover the siteof occlusion in the proximal segment. The very proximal part of the lesion was dilated with this balloon at 12 atmospheres. Attempts were then made to place a 2.0 x 8 balloon into the diagonal, but was not successful. A 1. 5 x 15 Emerge balloon was then placed into the diagonal across the site of lesion and inflated at 20 atmospheres for 10 seconds. A 3.5 x 15 Emerge balloon was then placed within the stented segment in the proximal and mid segment of the LAD and inflated at 16 atmospheres for 10 seconds. Angiogram at this point revealed flow in the proximal and mid segment. The distal segment was occluded. A 2.0 x 20 Emerge balloon was then placed in the distal segment. With passage of the balloon, improvement in flow in the distal segment was noted. This balloon was inflated at 8 atmospheres for 15 seconds. Following this, there was improvement in the flow in the distal segment, though the very apical segment still was occluded. The patient had 2 layers of stent in the proximal and mid segment. At this point, I discussed the case with Dr. Granados who was kind enough to come down to the cardiac catheterization lab and review the pictures with me. It was felt that placing an additional stent would not be beneficial as it carried high risk of stenosis and would also chcf moderate-sized diagonal vessel. Coronary artery bypass surgery was felt to be the better option. The guide and the wires were removed. As recommended by Dr. Granados, a balloon pump was inserted. During the procedure, regular ECG monitoring was done. Patient was initially given Angiomax but then subsequently changed to heparin and Integrilin in an attempt to restore perfusion to the distal segment of the LAD. The patient had periods of hypotension requiring Hayden-Synephrine and also received intracoronary nitroglycerin and sodium nitroprusside. In summary, angioplasty of completely occluded proximal and mid LAD stents restoring flow in the LAD, angioplasty of diagonal vessel. Additional stenting was not done for reasons as described above. The patient will be moved to the Intensive Care Unit for Integrilin and heparin and will have coronary artery bypass grafting on Tuesday. Job ID/VF Job ID: [id number] F FORESTER * Wally Aguilar DO - 05/03/2021 7:56 PM CSTAssociated Order(s): Critical Care Post-Procedure Diagnose(s): ST elevation myocardial infarction (STEMI), unspecified artery (HCC); Gross hematuria Critical Care Performed by: Wally Aguilar DO Authorized by: Wally Aguilar DO CRITICAL CARE: Team: CHENG Shift: PM Level of Billing: Critical Care My time spent with this patient was 35 minutes: Critical Provider Statement: I have seen and examined the patient on this day of service. I have reviewed and confirmed the history, physical exam, laboratory and radiologic data as documented in thesigned ICU note. I have reviewed and discussed my treatment plan with the ICU team and other medical/environmental remediation consultant staff, making frequent assessments and decisions regarding this patient's complex medical care. Critical Care time was exclusive of time spent performing separately billed procedures, treating other patients, and teaching. This time was in addition to and separate from critical care provided by other practitioners in my group on this day of service. Critical Care was necessary to treat or prevent imminent or life-threatening deterioration of the following conditions: Acute pain/acute postoperative pain Cardiogenic shock and ST-Elevation myocardial infarction (STEMI) Atelectasis This time was spent by me doing the following: Serial bedside patient exams Acute pain control Serial neurovascular exams IABP management Active and frequent reassessment of respiratory status and oxygen requirements and Incentive spirometry, pulmonary toilet Active and frequent monitoring of intake/output and volumen status Initiation/management of anti-platelet agents and Initiation/monitoring/titration of anticoagulants I spent time reviewing and interpreting data from bedside monitors, laboratory results, and imaging, I spent time discussing the management of this critically ill patient with consultants and the medical staff and I spent time documenting in the medical record Good IABP augmentation at 1:1, continue through the OR. Heparin drip to stop metal sprayer production or OR, Integrilin to stop at 0800, plan for CABG tomorrow around noon. Oxycodone for pain Continue osorio to gravity, flush as needed for clots, hoping hematuria will significantly improve once off antiplatelet and anticoagulation NPO at midnight Will need social work assistance as he is having difficulty affording meds. I explained we'll have to do this post-op once we know what his new regimen will be. F FORESTER * Frank Dugan MD - 05/03/2021 9:14 AM CSTAssociated Order(s): Critical Care Post-Procedure Diagnose(s): Gross hematuria; Hemoptysis; Primary hypertension; PVD (peripheral vascular disease) (HCC); Type 2 diabetes mellitus with other specified complication, without long-term current use of insulin (HCC); ST elevation myocardial infarction involving left anterior descending (LAD) coronary artery (HCC) Critical Care Performed by: Frank Dugan MD Authorized by: Frank Dugan MD CRITICAL CARE: Team: CHENG Shift: AM Level of Billing: Critical Care My time spent with this patient was 45 minutes: Critical Provider Statement: I have seen and examined the patient on this day of service. I have reviewed and confirmed the history, physical exam, laboratory and radiologic data as documented in thesigned ICU note. I have reviewed and discussed my treatment plan with the ICU team and other medical/environmental remediation consultant staff, making frequent assessments and decisions regarding this patient's complex medical care. Critical Care time was exclusive of time spent performing separately billed procedures, treating other patients, and teaching. This time was in addition to and separate from critical care provided by other practitioners in my group on this day of service. Critical Care was necessary to treat or prevent imminent or life-threatening deterioration of the following conditions: Acute pain/acute postoperative pain ST-Elevation myocardial infarction (STEMI) STEMI with IABP in place Poorly controlled DM Hypo- or Hyperglycemia Acute blood loss anemia Leukocytosis This time was spent by me doing the following: Acute pain control Serial neurovascular exams Frequent bronchodilator treatments, Incentive spirometry, pulmonary toilet and Active and frequent reassessment of respiratory status and oxygen requirements Active and frequent monitoring of intake/output and volumen status and Glycemic control Transfusion of blood products and Initiation/monitoring/titration of anticoagulants Obtaining appropriate cultures and Review of prior or current culture/gram stain results I spent time documenting in the medical record, I spent time discussing the management of this critically ill patient with consultants and the medical staff and I spent time reviewing and interpreting data from bedside monitors, laboratory results, and imaging F FORESTER * Wally Aguilar DO - 05/02/2021 8:00 PM CSTAssociated Order(s): Critical Care Post-Procedure Diagnose(s): ST elevation myocardial infarction (STEMI), unspecified artery (HCC); Gross hematuria Critical Care Performed by: Wally Aguilar DO Authorized by: Wally Aguilar DO CRITICAL CARE: Team: CHENG Shift: PM Level of Billing: Critical Care My time spent with this patient was 50 minutes: Critical Provider Statement: I have seen and examined the patient on this day of service. I have reviewed and confirmed the history, physical exam, laboratory and radiologic data as documented in thesigned ICU note. I have reviewed and discussed my treatment plan with the ICU team and other medical/environmental remediation consultant staff, making frequent assessments and decisions regarding this patient's complex medical care. Critical Care time was exclusive of time spent performing separately billed procedures, treating other patients, and teaching. This time was in addition to and separate from critical care provided by other practitioners in my group on this day of service. Critical Care was necessary to treat or prevent imminent or life-threatening deterioration of the following conditions: Acute pain/acute postoperative pain Cardiogenic shock, ST-Elevation myocardial infarction (STEMI) and Cardiomyopathy Atelectasis and Pulmonary edema Acute blood loss anemia This time was spent by me doing the following: Serial bedside patient exams Acute pain control Serial neurovascular exams IABP management, Active and frequent reassessment of respiratory status and oxygen requirements and Invasive ventilator management, reassessment, and titration Active and frequent monitoring of intake/output and volumen status Initiation/management of anti-platelet agents, Initiation/monitoring/titration of anticoagulants and Transfusion of blood products Review of prior or current culture/gram stain results I spent time reviewing and interpreting data from bedside monitors, laboratory results, and imaging, I spent time discussing the management of this critically ill patient with consultants and the medical staff and I spent time documenting in the medical record Interval History: CTS team planning for OR on Tuesday. Remains pain free. Hb decreasing, I personally reviewed today's labs and the echo. Assessment / Recommendations: Neurologic: Tylenol and oxycodone for pain, ramelteon and trazodone for sleep Cardiovascular: Continue IABP 1:1, heparin and integralin drips, Echo reviewed. Appeciate cards andCTS inptut Pulmonary:IS for atelectasis, wean NC for goal SPO2>92%, avoid hyperoxia GI: Cardiac/diabetic diet, home PPI, Endocrine:Insulin for diabetes, sugars are well controlled on current regimen Renal: Hematuria- urology consult in AM per CTS request, recent episode of hematuria requiring cysto/osorio at OSH, DO NOT REMOVE OSORIO, likely source of acute blood loss anemia, especially in settingof antiplatelet and anticoagulation, replete K and Ca. Hematology: Keep Hb>8 for active ischemia, Integrelin and heparin drips. Getting 1unit of PRBC'snow, will check post transfusion CBC ID: Continue to observe off antibiotics Musculoskeletal:Bedrest with IABP in place Prophylaxis: DVT - Heparin drip PUD - Home PPI F FORESTER * Frank Dugan MD - 05/02/2021 2:27 PM CSTAssociated Order(s): Critical Care Post-Procedure Diagnose(s): ST elevation myocardial infarction (STEMI), unspecified artery (HCC); Gross hematuria; Hemoptysis; Primary hypertension; PVD (peripheral vascular disease) (HCC); Type 2 diabetes mellitus with other specified complication, without long-term current use of insulin (HCC) Critical Care Performed by: Frank Dugan MD Authorized by: Frank Dugan MD CRITICAL CARE: Team: CHENG Shift: AM Level of Billing: Critical Care My time spent with this patient was 40 minutes: Critical Provider Statement: I have seen and examined the patient on this day of service. I have reviewed and confirmed the history, physical exam, laboratory and radiologic data as documented in thesigned ICU note. I have reviewed and discussed my treatment plan with the ICU team and other medical/environmental remediation consultant staff, making frequent assessments and decisions regarding this patient's complex medical care. Critical Care time was exclusive of time spent performing separately billed procedures, treating other patients, and teaching. This time was in addition to and separate from critical care provided by other practitioners in my group on this day of service. Critical Care was necessary to treat or prevent imminent or life-threatening deterioration of the following conditions: Acute pain/acute postoperative pain ST-Elevation myocardial infarction (STEMI) PVD Acute on chronic low back pain Hx of CAD s/p multiple stent placements STEMI With IABP in place Hemoptysis X 1 - monitor Hematuria Hx of urinary retetntion Hypo- or Hyperglycemia Acute blood loss anemia Leukocytosis This time was spent by me doing the following: Acute pain control Incentive spirometry, pulmonary toilet Glycemic control and Active and frequent monitoring of intake/output and volumen status Active repletion of electrolytes and Active diuresis Initiation/management of anti-platelet agents, Initiation/monitoring/titration of anticoagulants and Transfusion of blood products I spent time documenting in the medical record, I spent time discussing the management of this critically ill patient with consultants and the medical staff and I spent time reviewing and interpreting data from bedside monitors, laboratory results, and imaging F FORESTER F FORESTER F FORESTER * Wally Aguilar DO - 05/01/2021 8:15 PM CSTAssociated Order(s): Critical Care Post-Procedure Diagnose(s): ST elevation myocardial infarction (STEMI), unspecified artery (HCC) Critical Care Performed by: Wally Aguilar DO Authorized by: Wally Aguilar DO CRITICAL CARE: Team: CHENG Shift: PM Level of Billing: Critical Care My time spent with this patient was 110 minutes: Critical Provider Statement: I have seen and examined the patient on this day of service. I have reviewed and confirmed the history, physical exam, laboratory and radiologic data as documented in thesigned ICU note. I have reviewed and discussed my treatment plan with the ICU team and other medical/environmental remediation consultant staff, making frequent assessments and decisions regarding this patient's complex medical care. Critical Care time was exclusive of time spent performing separately billed procedures, treating other patients, and teaching. This time was in addition to and separate from critical care provided by other practitioners in my group on this day of service. Critical Care was necessary to treat or prevent imminent or life-threatening deterioration of the following conditions: Acute pain/acute postoperative pain ST-Elevation myocardial infarction (STEMI) Atelectasis and Pulmonary edema This time was spent by me doing the following: Serial bedside patient exams Frequent neurologic exams Serial neurovascular exams IABP management Active and frequent reassessment of respiratory status and oxygen requirements and Incentive spirometry, pulmonary toilet Active and frequent monitoring of intake/output and volumen status Initiation/monitoring/titration of anticoagulants I spent time reviewing and interpreting data from bedside monitors, laboratory results, and imaging, I spent time discussing the management of this critically ill patient with consultants and the medical staff and I spent time documenting in the medical record F FORESTER * Nalini Clayton MD - 05/01/2021 6:51 PM CST Cardiac cath done from right Femoral artery Left main: 40% distal stenosis Left anterior descendin% proximal stenosis Left circumflex: 90% proximal stenosis Right coronary artery:50% proximal, 50% distal stenosis Left ventriculogram: Moderate blanka-apical hypokinesis PTCA of LAD done using 3.0, 3.5 balloon and of diagnol using 1.5, 2.0, 2.5 balloons and flow restored. Discussed with Dr Granados IABP inserted Started on Integrilin, heparin CABG Tuesday This is a preliminary report F FORESTER F FORESTER * Nalini Clayton MD - 05/01/2021 12:00 AM CST Procedure Intra-aortic balloon pump placement. Mr. Alvarado presented with acute anterior wall myocardial infarction. Emergent cardiac catheterizationrevealed a completely occluded proximal LAD. He underwent balloon angioplasty of the LAD and diagonal vessel. The patient has a history of multiple stent placements and after discussion with cardiothoracic surgery, it was felt that the patient was best served by coronary artery bypass grafting and that additional stenting should be avoided because of high risk of in-stent stenosis and because of concerns about jailing moderate-sized diagonal vessel. The patient was 6 feet in height and therefore a 50 mL balloon pump was chosen. A 6-German sheath used for diagnostic catheterization was replaced with an 8- German sheath. Over the balloon pump wire a 50 mL intra-aortic balloon pump was positioned in the descending aorta. Appropriate systolic augmentation and diastolic unloading was observed. The sheath was sutured with 2-0 silk. The patient tolerated the procedure well. There were no complications. Summary Successful insertion of a 50 mL balloon pump through the right femoral artery. Job ID/VF Job ID: [id number] F FORESTER * Nalini Clayton MD - 05/01/2021 12:00 AM CST Procedure 1. Left heart catheterization. 2. Selective left coronary angiogram. 3. Left ventriculogram. Indications Mr. Alvarado is a 60-year-old male who presented with acute anterior wall myocardial infarction. Consent The indications, potential complications, and alternatives were explained to the patient who appeared to understand and indicated this. Opportunity for questions were provided. Informed consent was obtained. Medications Versed and fentanyl. Procedure In modified Seldinger technique, 6-German sheath was inserted in the right femoral artery. Catheterwas introduced over a flexible guidewire. Hemodynamic measurements were made and pressures were recorded before contrast was injected. Single plane left ventriculogram was recorded in 30-degree IRVING position using 36 mL of contrast injected at 12 mL/second into the left ventricle cavity. Following selective coronary catheterization using 5-German John 4 right and left John 4 left catheter, multiple rounds of contrast were made in the right and left coronary arteries, and angiograms were done in multiple views. On completion, catheters and sheaths were removed. Intra-aortic balloon pump was inserted. Findings Left ventriculogram: The left ventricle was mildly dilated. The anterobasal, anterolateral, inferior, posterior segments showed normal contraction. The anterior and apical segments showed moderate hypokinesis. Papillary muscles appeared normal. There was no valvular calcification. Ejection fractionwas noted to be around 40%. Coronary dominance: The right coronary artery is dominant. The posterior descending artery originates from this artery. Left main coronary artery: The left main coronary artery 25% distal stenosis. Left anterior descending: Proximal LAD 50% stenosis followed by complete occlusion. Left circumflex: 1. The proximal circumflex is a small vessel with 70% stenosis. 2. Mid left circumflex small vessel, normal. 3. First obtuse marginal is a small to moderate sized vessel with 70% ostial stenosis. Right coronary artery: 1. This is a large ectatic vessel. 2. Proximal right coronary artery 50%-60% stenosis. 3. Mid right coronary 25% stenosis. 4. Distal right coronary 25% stenosis. Posterior descending artery: 1. 25% mid stenosis. 2. The posterior LV branch 50% ostial stenosis. Pressures: Aorta 102/74. Left ventricle peak systolic pressure 96, end-diastolic pressure 24. Impression 1. Multivessel coronary artery disease. 2. Moderate decrease in left ventricular systolic function. Job ID/VF Job ID: [id number] F FORESTER documented in this encounter Consult Notes * Angelo Vance MD - 05/20/2021 10:00 AM CST Infectious Disease Consult Consulting Physician: HPI: Patient is a 60 y.o. male with multiple medical problems including a history of peripheral vasculardisease, COPD was initially admitted to the hospital on 05/02 for chest pain. Patient had had bladder surgery a day prior add [facility]. Patient was found to have ST elevation in the anterior chest leads he was then transferred to [facility] at that time. Patient was taken in for a cardiac catheterization and found to have rethrombosis of his previous LAD stents. Patient was seen by cardiothoracic surgery and underwent a CABG on 05/04. Patient initially on admission did undergo a COVID-19 test which was negative but a repeat 1 done on 05/19 has now turned up positive. CT of the chest done yesterday also showed patchy alveolar infiltrate in both lungs. We are being asked to this patient for the above reasons. PMH: Past Medical History: Diagnosis Date ??? Chronic obstructive pulmonary disease (CMS/HCC) (HCC) COPD ??? Coronary artery disease ??? Diabetes mellitus (HCC) ??? H/O heart artery stent 2006 ??? Hypertension Hypertension ??? ST elevation (STEMI) myocardial infarction (HCC) 05/01/2021 History reviewed. No pertinent surgical history. Med: Current Facility-Administered Medications Medication Dose Route Frequency Provider Last Rate Last Admin ??? acetaminophen (TYLENOL) tablet 650 mg 650 mg oral Q6H PRN Eleonora Duarte NP 650 mg at 05/19/21 1624 ? ? al & mag hydroxide bgeafxirmjy-rkjecjjpxdnmfdl-pyudfedch-nystatin (MAGIC MOUTHWASH) suspension 1-1-1-1 20 mL swish & spit Q4H PRN Blanner, Elena Soraya, ESCROW CLERK ??? albumin 5 % bottle 25 g 25 g intravenous Once Varsha Lee, EFREN ??? albuterol 2.5 mg /3 mL (0.083 %) nebulizer solution 2.5 mg 2.5 mg nebulization Q4H PRN (RT) Ralf Tomlinson MD 2.5 mg at 05/17/21 0224 ??? aspirin enteric coated tablet 81 mg 81 mg oral Daily Varsha Crowder NP 81 mg at 05/20/21 0848 ??? atorvastatin (LIPITOR) tablet 80 mg 80 mg oral Nightly Rhina Granados MD 80 mg at 05/19/212031 ??? dexAMETHasone (DECADRON) 4 mg/mL injection 6 mg 6 mg intravenous Daily Elena Kelly, EFREN 6mg at 05/20/21 0020 ??? dextrose oral liquid liquid 15 g 15 g oral Q15 Min PRN Anibal Lara MD Or ??? dextrose (D10W) 10% bolus 250 mL 250 mL intravenous Q15 Min PRN Anibal Mon MD ??? docusate sodium (COLACE) capsule 100 mg 100 mg oral BID Rhina Granados MD 100 mg at 05/20/21 0848 ??? enoxaparin (LOVENOX) syringe 40 mg 40 mg subcutaneous Daily-2100 Rhina Granados MD 40 mg at107/19/202032 ??? glucagon injection 1 mg 1 mg intramuscular Q30 Min PRN Anibal Lara MD ??? guaiFENesin (ROBITUSSIN) 20 mg/mL oral liquid 200 mg 200 mg oral QID PRN Caleb Toth PA 200 mg at 05/19/21 1746 ??? insulin glargine (LANTUS, SEMGLEE) 100 unit/mL injection 8 Units 8 Units subcutaneous QAM Abelino Leblanc MD 8 Units at 05/20/21 0848 ??? insulin lispro (HumaLOG, ADMELOG) 100 unit/mL injection 0-12 Units 0-12 Units subcutaneous 5x daily (with meals, nightly, & 0200) Abelino Leblanc MD 4 Units at 05/20/21 0928 ??? insulin NPH (HumuLIN N, NovoLIN N) 100 unit/mL injection 5 Units 5 Units subcutaneous Daily Elena Kelly NP 5 Units at 05/20/21 0021 ??? ipratropium-albuteroL (DUO-NEB) 0.5-2.5 mg/3 mL nebulizer solution 3 mL 3 mL nebulization Q4H While awake (RT) Ralf Tomlinson MD 3 mL at 05/20/21 0959 ??? midodrine (PROAMATINE) tablet 15 mg 15 mg oral Q6H Rhina Granados MD 15 mg at 05/20/21 0848 ??? ondansetron (ZOFRAN) injection 4 mg 4 mg intravenous Q6H PRN Rhina Granados MD ??? pantoprazole DR (PROTONIX) extended release tablet 40 mg 40 mg oral Daily Rhina Granados MD40 mg at 05/20/21 0858 ??? polyethylene glycol (MIRALAX) packet 17 g 17 g oral Daily PRN Rhina Granados MD ??? QUEtiapine (SEROquel) tablet 25 mg 25 mg oral Nightly Rhina Granados MD 25 mg at 05/19/212031 ??? [START ON 05/21/2021] remdesivir (VEKLURY) 100 mg in sodium chloride 0.9% 250 mL IVPB 100 mg intravenous Q24H Elena Kelly NP ??? sodium chloride 0.9% flush 0.5-20 mL 0.5-20 mL intra-catheter Q8H LEAH Rhina Granados MD 20 mL at 05/20/21 0620 ??? tamsulosin (FLOMAX) extended release capsule 0.4 mg 0.4 mg oral Daily with dinner Elena Kelly NP 0.4 mg at 05/19/21 1638 Allergies: Allergies Allergen Reactions ??? Metoclopramide SH: Social History Socioeconomic History ??? Marital status: Spouse name: Not on file ??? Number of children: Not on file ??? Years of education: Not on file ??? Highest education level: Not on file Occupational History ??? Not on file Tobacco Use ??? Smoking status: Current Every Day Smoker Packs/day: 1.00 Years: 40.00 Pack years: 40.00 Types: Cigarettes ??? Smokeless tobacco: Not on file ??? Tobacco comment: Smoking History Packs/day: 1 Packs Substance and Sexual Activity ??? Alcohol use: No ??? Drug use: Yes Frequency: 1.0 times per week Types: Tobacco Comment: 1 ppd current smoker ??? Sexual activity: Defer Other Topics Concern ??? Not on file Social History Narrative ??? Not on file Social Determinants of Health Financial Resource Strain: Not on file Food Insecurity: Not on file Transportation Needs: Not on file Physical Activity: Not on file Stress: Not on file Social Connections: Not on file Intimate Partner Violence: Not on file Housing Stability: Not on file FH: Family History Problem Relation Age of Onset ??? COPD Father Immunosuppressive Medications: aspirin, carvediloL, fenofibrate, glimepiride, insulin glargine, lisinopriL, pantoprazole DR, prasugreL, and pravastatin Review of Systems: Gen: denies fevers, denies chills, denies sweats, denies unintentional weight loss HEENT: Denies sore throat, denies thrush Neck: Denies palpable lymph nodes, denies neck stiffness Cv: denies chest pain, denies palpitations Resp: Mild SOB, Denies orthopnea Gi: Denies abdominal pain, Denies diarrhea, denies n/v Extrem: Denies gross deformities, denies joint pain, denies myalgias Skin: Denies rashes, denies lesions Neuro: Denies weakness, denies paresthesias, denies memory loss Psych: denies depression, denies anxiety Objective: Vitals: 24hr Min/Max: Temp Min: 36.4 ??C (97.5 ??F) Max: 36.9 ??C (98.4 ??F) Pulse Min: 81 Max: 104 BP Min: 86/72 Max: 123/67 Resp Min: 12 Max: 37 SpO2 Min: 81 % Max: 98 % Most Recent : Vitals: 05/20/21 0300 05/20/21 0400 05/20/21 0515 05/20/21 0959 BP: 93/55 108/71 Pulse: 81 83 Resp: Temp: 36.9 ??C (98.4 ??F) TempSrc: Oral SpO2: 98% Weight: 79.5 kg (175 lb 4.3 oz) Height: Physical Exam: General appearance: alert, cooperative, no distress HEENT: (-)icterus, Oropharnyx is normal, NCAT Neck: No palpable LN Lungs: breath sounds normal and symmetric; minimal respiratory effort, no r/w/c Heart: regular rhythm, normal S1 and S2, no m/r/g Abdomen: soft without mass, non-tender, +bowel sounds, no HSM Skin: (-)new rashes, no ulcerations MSK: no gross deformities, FROM Vascular: no Edema, pulses present bilaterally Neuro: No focal deficits Psych: Appropriate mood and affect Lab/Radiology/Diagnostic Review: Reviewed. Recent Labs Lab Units 05/20/21 0328 05/19/21 0456 05/18/21 0204 WBC K/cumm 9.3 8.0 7.6 HEMOGLOBIN g/dL 10.6* 9.8* 11.2* HEMATOCRIT % 32.5* 29.1* 33.0* PLATELETS K/cumm 381 308 278 Recent Labs Lab Units 05/20/21 0328 05/20/21 0025 05/20/21 0025 05/19/21 1645 05/19/21 1645 BUN SERUM mg/dL 45* -- 47* -- 51* CREATININE mg/dL 1.14 < > 1.05 < > 1.44* < > = values in this interval not displayed. Lab Results Component Value Date ALT 18 05/18/2021 AST 60 (H) 05/18/2021 ALKPHOS 86 05/18/2021 BILITOT 0.6 05/18/2021 Cultures 05/02 COVID 19- 05/19 COVID 19 positive 05/05 tracheal aspirate culture with yeast Assessment: 1. Acute respiratory failure 2. COVID-19 infection 3. Status post CABG 4. Hematuria Plan: 1. Continue treatment for COVID including remdesivir and IV steroids 2. Continue supportive care Thank you for letting me participate in this patient's care, will follow with you. Angelo Vance MD 05/20/2021 F FORESTER * Jose Conti MD - 05/17/2021 2:28 AM CST Images from the original note were not included. Critical Care Medicine Consult Reason for Consult: Acute Hypoxemic Respiratory failure Requesting Provider: Dr. Rhina Granados MD Subjective Patient is a 60 y.o. y/o male admitted on 05/01/2021 5:20 PM with the following indication(s) for ICU care: - Acute hypoxemic respiratory failure 2/2 volume overload HPI: 60M smoker hx copd, obesity, pvd, htn, hld, dm2 & CAD s/p multiple LAD stents who p/w anterior STEMI after bladder procedure on 04/29. [facility] where they found in-stent thrombosis and an angioplasty was performed but stent could not be placed. A balloon pump was placed and the patient was transferred to the CVU. CT-surgery was consulted for CABG. The patientunderwent a 4 vessel cabg on 05/04 w/ Dr. Granados (MAE->LAD, Saph vein- >diag & obtuse, Saph->PDA). He developed rebleeding from his bladder tumor and this was adressed by urology. He self extubated the next day after his CABG. His osorio was removed yesterday and he is currently post op day 11 from the CABG. He has been getting diuresed on the floor but has unfortunately had increasing oxygen requirement for the last 24 hours despite diuresis. He is currently on a non-rebreather and being transferred to the ICU. Past Medical History: Diagnosis Date ??? Chronic obstructive pulmonary disease (CMS/HCC) (HCC) COPD ??? Coronary artery disease ??? Diabetes mellitus (HCC) ??? H/O heart artery stent 2006 ??? Hypertension Hypertension ??? ST elevation (STEMI) myocardial infarction (HCC) 05/01/2021 History reviewed. No pertinent surgical history. Allergies Allergen Reactions ??? Metoclopramide Social History Tobacco Use ??? Smoking status: Current Every Day Smoker Packs/day: 1.00 Years: 40.00 Pack years: 40.00 Types: Cigarettes ??? Smokeless tobacco: Not on file ??? Tobacco comment: Smoking History Packs/day: 1 Packs Substance Use Topics ??? Alcohol use: No Family History Problem Relation Age of Onset ??? COPD Father HOME MEDICATIONS : aspirin 325 mg tablet carvedilol (COREG) 6.25 mg tablet fenofibrate (TRIGLIDE) 160 mg tablet glimepiride (AMARYL) 2 mg tablet insulin glargine (LANTUS) 100 unit/mL cartridge lisinopril (PRINIVIL,ZESTRIL) [address] (PROTONIX) 40 mg EC tablet prasugrel (EFFIENT) tablet pravastatin (PRAVACHOL) 80 mg tablet Medications: Medications Prior to Admission Medication Sig Dispense Refill Last Dose ??? aspirin 325 mg tablet take 1 Tablet (325MG) by oral route every day 0 ??? carvedilol (COREG) 6.25 mg tablet TAKE 1 TABLET (6.25MG) BY ORAL ROUTE 2 TIMES EVERY DAY WITH FOOD 60 0 ??? fenofibrate (TRIGLIDE) 160 mg tablet take 1 tablet (160MG) by oral route every day 0 ??? glimepiride (AMARYL) 2 mg tablet take 1 tablet (2MG) by oral route every day 0 ??? insulin glargine (LANTUS) 100 unit/mL cartridge inject by subcutaneous route as per insulin protocol 0 ??? lisinopril (PRINIVIL,ZESTRIL) 10 mg tablet take 1 Tablet (10MG) by oral route every day 0 ??? pantoprazole DR (PROTONIX) 40 mg EC tablet take 1 tablet (40MG) by oral route every day 0 ??? prasugrel (EFFIENT) tablet take 1 tablet (10MG) by oral route every day 30 6 ??? pravastatin (PRAVACHOL) 80 mg tablet take 1 tablet (80MG) by oral route every day 0 Scheduled Medications Medication Dose Route Frequency ??? aspirin enteric coated tablet 81 mg 81 mg oral Daily ??? atorvastatin (LIPITOR) tablet 80 mg 80 mg oral Nightly ??? docusate sodium (COLACE) capsule 100 mg 100 mg oral BID ??? enoxaparin (LOVENOX) syringe 40 mg 40 mg subcutaneous Daily-2100 ??? furosemide (LASIX) 10 mg/mL injection 40 mg 40 mg intravenous TID ??? guaiFENesin ER (MUCINEX) extended release tablet 600 mg 600 mg oral BID ??? insulin glargine (LANTUS, SEMGLEE) 100 unit/mL injection 24 Units 24 Units subcutaneous Nightly ??? insulin lispro (HumaLOG, ADMELOG) 100 unit/mL injection 0-10 Units 0-10 Units subcutaneous TID with meals ??? insulin lispro (HumaLOG, ADMELOG) 100 unit/mL injection 0-5 Units 0-5 Units subcutaneous Nightly ??? insulin lispro (HumaLOG, ADMELOG) 100 unit/mL injection 10 Units 10 Units subcutaneous TID PC ??? metoprolol tartrate (LOPRESSOR) immediate release tablet 12.5 mg 12.5 mg oral BID ??? pantoprazole DR (PROTONIX) extended release tablet 40 mg 40 mg oral Daily ??? piperacillin-tazobactam (ZOSYN) 3.375 g in sodium chloride 0.9% 100 mL IVPB 3.375 g [id number] LEAH ??? polyethylene glycol (MIRALAX) packet 17 g 17 g oral BID ??? potassium chloride ER (KLOR-CON) extended release tablet 20 mEq 20 mEq oral BID ??? QUEtiapine (SEROquel) tablet 25 mg 25 mg oral Daily ??? QUEtiapine (SEROquel) tablet 50 mg 50 mg oral Nightly ??? sodium chloride 0.9% flush 0.5-20 mL 0.5-20 mL intra-catheter Q8H LEAH Continuous Medications: Current Facility-Administered Medications Medication Dose Route Frequency Last Admin ??? furosemide 10 mg/hr intravenous Continuous PRN Medications: ??? acetaminophen, 650 mg, 650 mg at 05/15/21 1816 ? ? al & mag hydroxide wrwuobohfif-ugtmtvvircherzm-wrqqtwneu-nystatin, 20 mL, 20 mL at ??? albuterol, 2.5 mg, 2.5 mg at 05/17/214 ??? dextrose, 15 g OR dextrose, 250 mL ??? glucagon, 1 mg ??? haloperidol, 2 mg ??? ondansetron, 4 mg Review of Systems: Unable to obtain given clinical acuity. Objective Vitals: Arrival Vitals Temp 05/02/21 0530 36.5 ??C (97.7 ??F) Pulse 05/01/212114 80 Resp 05/01/212114 22 BP 05/01/212114 117/48 SpO2 05/01/212114 96 % Temp src 05/02/21 0800 Oral Heart Rate Source 05/02/2151 Monitor;Pulse Oximetry Patient Position 05/02/2151 Lying BP Location 05/02/2151 Other (Comment) FiO2 (%) 05/04/212024 60 % 24hr Min/Max: Temp Min: 36.3 ??C (97.4 ??F) Max: 37.7 ??C (99.8 ??F) Pulse Min: 92 Max: 121 BP Min: 91/51 Max: 106/69 Resp Min: 19 Max: 24 SpO2 Min: 87 % Max: 97 % Current Vitals: BP 98/62 (BP Location: Right arm, Patient Position: Lying) Pulse 118 Temp 37.7 ??C (99.8 ??F) (Oral) Resp 24 Ht 175.3 cm (5' 9.02 ) Wt 78.7 kg (173 lb 8 oz) SpO2 93% BMI 25.61 kg/m?? Intake/Output: I/O last 2 completed shifts: In: 1198 [P.O.:1198] Out: 2412 [Urine:2412] I/O this shift: In: - Out: 500 [Urine:500] LDA: Introducer 05/04/21 Right Internal jugular (Active) Placement Date/Time: 05/04/21 (c 1441 Hand Hygiene Performed: Yes Orientation: Right Location: Internal jugular Description (optional): multi-lumen access catheter (MAC) Number of days: 12 Vent settings for last 24 hours: Hemodynamic parameters for last 24 hours: Physical Exam: Vital signs reviewed Gen: Resting comfortably in bed, appears stated age, well groomed and well nourished Head: Normocephalic & Atraumatic Eyes: PERRL, EOMI, Anicteric, not injected HENT: Dry mucous membranes, no oral lesions Neck: Supple, trachea midline, full range of motion and no lymphadenopathy CV: Tachycardic but regular rhythm, no murmurs, gallops or rubs. Pulm: No increased work of breathing, mild tachypnea, symmetrical expansion w/o accessory muscle usage tubular breath sounds on the left upper, rales at the bases. Chest: Sternal scar w/ steristrips, no signs of infection Abd: Soft, non-tender, non-distended, positive for bowel sounds. MSK: No clubbing cyanosis or edema Psych: Cooperative, appropriate mood and affect, no SI/HI Lab/Radiology/Diagnostic Review: Laboratory review: Lab results in the last 24 hours: Recent Results (from the past 24 hour(s)) POCT glucose Collection Time: 05/16/21 2:43 AM Result Value Ref Range Glucose, POC 95 70 - 199 mg/dL Basic metabolic panel Collection Time: 05/16/21 5:42 AM Result Value Ref Range Sodium 132 (L) 135 - 145 mmol/L Potassium, pl 3.8 3.3 - 4.9 mmol/L Chloride 101 97 - 110 mmol/L CO2 20 (L) 22 - 32 mmol/L Anion gap 11 2 - 15 mmol/L BUN 22 8 - 25 mg/dL Creatinine 0.68 (L) 0.80 - 1.30 mg/dL Glucose 96 70 - 199 mg/dL Calcium 8.1 (L) 8.5 - 10.3 mg/dL Phosphorus Collection Time: 05/16/21 5:42 AM Result Value Ref Range Phosphorus, pl 3.2 2.3 - 4.5 mg/dL Magnesium Collection Time: 05/16/21 5:42 AM Result Value Ref Range Magnesium 2.0 1.4 - 2.5 mg/dL CBC without differential Collection Time: 05/16/21 5:42 AM Result Value Ref Range WBC 6.2 3.8 - 9.9 K/cumm Hgb 9.9 (L) 13.0 - 17.5 g/dL Hct 30.8 (L) 38.9 - 50.3 % Plt 241 150 - 400 K/cumm MPV 11.7 9.1 - 12.3 fL RBC 3.34 (L) 4.30 - 5.80 M/cumm MCV 92.2 81.3 - 96.4 fL MCH 29.6 27.1 - 33.3 pg MCHC 32.1 (L) 32.3 - 35.7 g/dL RDW CV 13.4 11.1 - 14.9 % RDW SD 45.6 35.7 - 48.1 fL NRBC abs 0.00 0.00 - 0.01 K/cumm eGFR Collection Time: 05/16/21 5:42 AM Result Value Ref Range eGFR 105 mL/min/1.73 m2 POCT glucose Collection Time: 05/16/21 7:51 AM Result Value Ref Range Glucose, POC 135 70 - 199 mg/dL POCT glucose Collection Time: 05/16/21 12:54 PM Result Value Ref Range Glucose, POC 114 70 - 199 mg/dL POCT glucose Collection Time: 05/16/21 6:10 PM Result Value Ref Range Glucose, POC 104 70 - 199 mg/dL POCT glucose Collection Time: 05/16/21 8:47 PM Result Value Ref Range Glucose, POC 142 70 - 199 mg/dL POCT glucose Collection Time: 05/16/21 10:45 PM Result Value Ref Range Glucose, POC 131 70 - 199 mg/dL POCT glucose Collection Time: 05/17/21 2:01 AM Result Value Ref Range Glucose, POC 135 70 - 199 mg/dL POCT glucose Collection Time: 05/17/21 2:21 AM Result Value Ref Range Glucose, POC 139 70 - 199 mg/dL I have personally reviewed the labs and imaging and note the following. Mild anemia and mild hyponatremia w/ resp alkalosis. XR Chest 1 View Result Date: 05/16/2021 No change from previous. Electronically signed by: Humphrey Mojica M.D. XR Chest 1 View Result Date: 05/15/2021 Borderline cardiomegaly with no failure. Electronically signed by: Elvira Blackman M.D. Assessment/Plan: 60M smoker hx COPD, obesity, DM & CAD/PVD s/p CABGx4 c/b HFprEF 42% (grade-1) who is p/w respiratory failure 2/2 volume overload. Neuro: No acute issues - Continue seroquel as scheduled - promote normal sleep wake cycle CV/Pulmonary Acute hypoxemic respiratory failure secondary to pulmonary edema: - CXR: shows diffuse pulmonary edema requiring non-rebreather - Lasix gtt goal net negative 1 to 2L - continue metolazone BID - aggressive pulm toilet - Electrolyte abnormality Replace PRN Acute onset congestive heart failure w/ reduced ejection fraction and diastolic dysfunction secondary to myocardial infarction now s/p CABGx4 - Continue daily asa/statin - plavix held 2/2 hematuria - continue metop w/ hold parameters for hypotension Endo: Diabetes mellitus type 2: Glycemic control - Managed by endocrine Renal: Transurethral resection of bladder tumor c/b hematuria: - osorio removed yesterday - voiding spontaneously - place condom cath for accurate I/O DVT PPX: SCD's & enox ID: Possible pneumonia: - currently on day 7 of zosyn so course is complete - patient is tachy but afebrile - will reassess w/ labs and cxr F FORESTER * Sixto Fish MD - 05/13/2021 5:30 PM CSTAssociated Order(s): IP CONSULT TO ENDOCRINOLOGY Endocrine Diabetes Consult Reason for Consult: Blood glucose management s/p CABG Requesting Provider: Varsha Crowder NP CC: DM HPI: Deepak Alvarado is a 60 y.o. male patient is seen in consultation for diabetes management. Patient with known history of type 2 diabetes mellitus, CAD status post stent, hypertension, COPD got admitted to [facility] on 05[facility]01[facility]2021 with acute STEMI s/p PCI to LAD patient underwent CABG X 4 on 05/04.. Post CABG complicated by cardiogenic shock , briefly required pressor support. Patient got self extubated on 05/05 . Patient off dobutamine drip. Postop wound healing good. Patient now having gross hematuria. His undergoing procedure tomorrow by Urology. Patient will be NPO from midnight. Endocrinology consult called in today for diabetes management. Patient blood sugars are running in 170-200 range. Patient gives a history of type 2 diabetes mellitus diagnosed over few years. Patient states that he takes insulin at home but he was not sure of the name and he states he takes 60 units daily and glimepiride at home and also oral metformin. Patient appetite for lunch was poor.He denies any nausea or vomiting or abdominal pain. Past Medical History: Diagnosis Date ??? Chronic obstructive pulmonary disease (CMS/HCC) (HCC) COPD ??? Coronary artery disease ??? Diabetes mellitus (HCC) ??? H/O heart artery stent 2006 ??? Hypertension Hypertension ??? ST elevation (STEMI) myocardial infarction (HCC) 05/01/2021 History reviewed. No pertinent surgical history. Medications Prior to Admission Medication Sig Dispense Refill Last Dose ??? aspirin 325 mg tablet take 1 Tablet (325MG) by oral route every day 0 ??? carvedilol (COREG) 6.25 mg tablet TAKE 1 TABLET (6.25MG) BY ORAL ROUTE 2 TIMES EVERY DAY WITH FOOD 60 0 ??? fenofibrate (TRIGLIDE) 160 mg tablet take 1 tablet (160MG) by oral route every day 0 ??? glimepiride (AMARYL) 2 mg tablet take 1 tablet (2MG) by oral route every day 0 ??? insulin glargine (LANTUS) 100 unit/mL cartridge inject by subcutaneous route as per insulin protocol 0 ??? lisinopril (PRINIVIL,ZESTRIL) 10 mg tablet take 1 Tablet (10MG) by oral route every day 0 ??? pantoprazole DR (PROTONIX) 40 mg EC tablet take 1 tablet (40MG) by oral route every day 0 ??? prasugrel (EFFIENT) tablet take 1 tablet (10MG) by oral route every day 30 6 ??? pravastatin (PRAVACHOL) 80 mg tablet take 1 tablet (80MG) by oral route every day 0 Current Facility-Administered Medications Medication Dose Route Frequency Provider Last Rate Last Admin ??? acetaminophen (TYLENOL) tablet 650 mg 650 mg oral Q6H PRN Eleonora Duarte NP 650 mg at 05/12/21 2223 ? ? al & mag hydroxide zvfzoyvwjld-lmopiprnwmjvjhg-gxvwkqwtp-nystatin (MAGIC MOUTHWASH) suspension 1-1-1-1 20 mL swish & spit Q4H PRN Tiana Spence NP 20 mL at 05/12/21 1457 ??? albuterol 2.5 mg /3 mL (0.083 %) nebulizer solution 2.5 mg 2.5 mg nebulization Q4H PRN (RT) Ralf Tomlinson MD ??? aspirin enteric coated tablet 81 mg 81 mg oral Daily Varsha Crowder NP 81 mg at 05/13/21 0937 ??? atorvastatin (LIPITOR) tablet 80 mg 80 mg oral Nightly Rhina Granados MD 80 mg at 05/12/21 2204 ??? [Held by Provider] clopidogreL (PLAVIX) tablet 75 mg 75 mg oral Daily Rhina Granados MD 75 mg at 05/10/21 0854 ??? dextrose oral liquid liquid 15 g 15 g oral Q15 Min PRN Anibal Lara MD Or ??? dextrose (D10W) 10% bolus 250 mL 250 mL intravenous Q15 Min PRN Anibal Mon MD ??? docusate sodium (COLACE) capsule 100 mg 100 mg oral BID Rihna Granados MD 100 mg at 05/13/21 0936 ??? [Held by Provider] enoxaparin (LOVENOX) syringe 40 mg 40 mg subcutaneous Daily-2100 Rhina Granados MD 40 mg at 05/10/21 214 ??? glucagon injection 1 mg 1 mg intramuscular Q30 Min PRN Anibal Lara MD ??? guaiFENesin ER (MUCINEX) extended release tablet 600 mg 600 mg oral BID Tiana Spence NP 600 mg at 05/13/21 0936 ??? haloperidol (HALDOL) injection 2 mg 2 mg intramuscular Q8H PRN Varsha Crowder NP ??? insulin glargine (LANTUS, SEMGLEE) 100 unit/mL injection 20 Units 0.25 Units/kg subcutaneous Nightly Anibal Lara MD 20 Units at 05/12/21 2222 ??? insulin lispro (HumaLOG, ADMELOG) 100 unit/mL injection 0-10 Units 0-10 Units subcutaneous TID with meals Anibal Lara MD 2 Units at 05/13/21 1725 ??? insulin lispro (HumaLOG, ADMELOG) 100 unit/mL injection 0-5 Units 0-5 Units subcutaneous Nightly Anibal Lara MD 1 Units at 05/12/21 2210 ??? insulin lispro (HumaLOG, ADMELOG) 100 unit/mL injection 7 Units 0.083 Units/kg subcutaneous TIDwith meals Anibal Lara MD 7 Units at 05/13/21 1725 ??? metoprolol XL (TOPROL-XL) extended release tablet 12.5 mg 12.5 mg oral Daily Lester Batista MD12.5 mg at 05/13/21936 ??? ondansetron (ZOFRAN) injection 4 mg 4 mg intravenous Q6H PRN Rhina Granados MD ??? pantoprazole DR (PROTONIX) extended release tablet 40 mg 40 mg oral Daily Rhina Granados MD40 mg at 05/13/2136 ??? piperacillin-tazobactam (ZOSYN) 3.375 g in sodium chloride 0.9% 100 mL IVPB 3.375 g [id number] LEAH Eleonora Duarte NP 200 mL/hr at 05/13/211723 3.375 g at 05/13/21 172 ??? polyethylene glycol (MIRALAX) packet 17 g 17 g oral BID Rhina Granados MD 17 g at 05/13/21935 ??? potassium chloride ER (KLOR-CON) extended release tablet 20 mEq 20 mEq oral BID Eleonora Duarte NP 20 mEq at 05/13/21935 ??? QUEtiapine (SEROquel) tablet 25 mg 25 mg oral Daily Varsha Crowder NP 25 mg at 05/13/21936 ??? QUEtiapine (SEROquel) tablet 50 mg 50 mg oral Nightly Varsha Crowder NP 50 mg at ??? sodium chloride 0.9% flush 0.5-20 mL 0.5-20 mL intra-catheter Q8H [facility] Rhina Granados MD 10 mL at 05/13/211728 Allergies Allergen Reactions ??? Metoclopramide Social History Tobacco Use ??? Smoking status: Current Every Day Smoker Packs/day: 1.00 Years: 40.00 Pack years: 40.00 Types: Cigarettes ??? Smokeless tobacco: Not on file ??? Tobacco comment: Smoking History Packs/day: 1 Packs Substance Use Topics ??? Alcohol use: No Family History Problem Relation Age of Onset ??? COPD Father Review of Systems: Review of Systems Constitutional: Positive for appetite change and fatigue. Negative for chills, fever and unexpectedweight change. HENT: Negative for dental problem, ear pain, hearing loss, sore throat, trouble swallowing and voice change. Eyes: Negative for pain and visual disturbance. Respiratory: Negative for cough, shortness of breath and wheezing. Cardiovascular: Negative for chest pain, palpitations and leg swelling. Gastrointestinal: Negative for abdominal pain, constipation, diarrhea, nausea and vomiting. Endocrine: Negative for cold intolerance, heat intolerance, polydipsia and polyuria. Genitourinary: Positive for hematuria. Negative for difficulty urinating, dysuria and urgency. Musculoskeletal: Negative for back pain, gait problem, joint swelling, myalgias, neck pain and neckstiffness. Skin: Negative for rash and wound. Allergic/Immunologic: Negative for environmental allergies and food allergies. Neurological: Negative for dizziness, tremors, seizures, speech difficulty, weakness, light-headedness, numbness and headaches. Hematological: Negative for adenopathy. Does not bruise/bleed easily. Psychiatric/Behavioral: Negative for behavioral problems, confusion, dysphoric mood and sleep disturbance. The patient is not nervous/anxious. Objective Vitals: 24hr Min/Max: Temp Min: 36.3 ??C (97.4 ??F) Max: 37 ??C (98.6 ??F) Pulse Min: 61 Max: 97 BP Min: 95/58 Max: 136/65 Resp Min: 18 Max: 20 SpO2 Min: 64 % Max: 99 % Most Recent : Vitals: 05/13/21 0802 05/13/21 1058 05/13/21 1251 05/13/21 1505 BP: 102/60 96/63 102/61 95/58 BP Location: Right arm Right arm Right arm Right arm Patient Position: Lying Lying HOB 30 degrees Pulse: 86 91 91 97 Resp: 18 18 18 20 Temp: 36.7 ??C (98.1 ??F) 36.7 ??C (98 ??F) 36.4 ??C (97.5 ??F) 37 ??C (98.6 ??F) TempSrc: Oral Oral Oral Oral SpO2: 96% 97% 99% (!) 64% Weight: Height: Physical Exam: Physical Exam Constitutional: Appearance: Normal appearance. HENT: Head: Normocephalic and atraumatic. Eyes: Conjunctiva/sclera: Conjunctivae normal. Neck: Thyroid: No thyromegaly. Cardiovascular: Rate and Rhythm: Normal rate and regular rhythm. Heart sounds: Normal heart sounds. Pulmonary: Effort: Pulmonary effort is normal. Breath sounds: Normal breath sounds. Abdominal: General: Bowel sounds are normal. Palpations: Abdomen is soft. There is no mass. Tenderness: There is no abdominal tenderness. Genitourinary: Comments: Osorio catheter + ( blood in urine ) Musculoskeletal: Cervical back: Neck supple. Right lower leg: No edema. Left lower leg: No edema. Feet: Right Foot: Skin Integrity: Negative for ulcer. Left Foot: Skin Integrity: Negative for ulcer. Skin: General: Skin is warm and dry. Comments: Sternotomy wound intact - on dressing Neurological: Mental Status: He is alert and oriented to person, place, and time. Psychiatric: Thought Content: Thought content normal. Judgment: Judgment normal. Lab/Radiology/Diagnostic Review: Reviewed. Recent Results (from the past 48 hour(s)) POCT glucose Collection Time: 05/11/21 6:22 PM Result Value Ref Range Glucose, POC 142 70 - 199 mg/dL POCT glucose Collection Time: 05/11/21 9:41 PM Result Value Ref Range Glucose, POC 128 70 - 199 mg/dL POCT glucose Collection Time: 05/12/21 1:46 AM Result Value Ref Range Glucose, POC 179 70 - 199 mg/dL Basic metabolic panel Collection Time: 05/12/21 6:38 AM Result Value Ref Range Sodium 130 (L) 135 - 145 mmol/L Potassium, pl 3.5 3.3 - 4.9 mmol/L Chloride 94 (L) 97 - 110 mmol/L CO2 22 22 - 32 mmol/L Anion gap 14 2 - 15 mmol/L BUN 26 (H) 8 - 25 mg/dL Creatinine 0.78 (L) 0.80 - 1.30 mg/dL Glucose 163 70 - 199 mg/dL Calcium 8.6 8.5 - 10.3 mg/dL CBC without differential Collection Time: 05/12/21 6:38 AM Result Value Ref Range WBC 13.8 (H) 3.8 - 9.9 K/cumm Hgb 10.7 (L) 13.0 - 17.5 g/dL Hct 32.7 (L) 38.9 - 50.3 % Plt 304 150 - 400 K/cumm MPV 11.6 9.1 - 12.3 fL RBC 3.58 (L) 4.30 - 5.80 M/cumm MCV 91.3 81.3 - 96.4 fL MCH 29.9 27.1 - 33.3 pg MCHC 32.7 32.3 - 35.7 g/dL RDW CV 13.4 11.1 - 14.9 % RDW SD 44.9 35.7 - 48.1 fL NRBC abs 0.00 0.00 - 0.01 K/cumm Phosphorus Collection Time: 05/12/21 6:38 AM Result Value Ref Range Phosphorus, pl 3.6 2.3 - 4.5 mg/dL Magnesium Collection Time: 05/12/21 6:38 AM Result Value Ref Range Magnesium 1.9 1.4 - 2.5 mg/dL eGFR Collection Time: 05/12/21 6:38 AM Result Value Ref Range eGFR 99 mL/min/1.73 m2 POCT glucose Collection Time: 05/12/21 7:09 AM Result Value Ref Range Glucose, POC 196 70 - 199 mg/dL POCT glucose Collection Time: 05/12/21 8:10 AM Result Value Ref Range Glucose, POC 202 (H) 70 - 199 mg/dL aPTT Collection Time: 05/12/21 12:26 PM Result Value Ref Range aPTT 29 27 - 37 sec Protime-INR Collection Time: 05/12/21 12:26 PM Result Value Ref Range PT 14.0 (H) 9.5 - 13.6 sec INR 1.3 (H) 0.9 - 1.2 POCT glucose Collection Time: 05/12/21 12:31 PM Result Value Ref Range Glucose, POC 233 (H) 70 - 199 mg/dL POCT glucose Collection Time: 05/12/21 5:43 PM Result Value Ref Range Glucose, POC 171 70 - 199 mg/dL POCT glucose Collection Time: 05/12/21 10:04 PM Result Value Ref Range Glucose, POC 188 70 - 199 mg/dL POCT glucose Collection Time: 05/13/21 1:40 AM Result Value Ref Range Glucose, POC 258 (H) 70 - 199 mg/dL CBC without differential Collection Time: 05/13/21 6:12 AM Result Value Ref Range WBC 9.8 3.8 - 9.9 K/cumm Hgb 9.7 (L) 13.0 - 17.5 g/dL Hct 29.8 (L) 38.9 - 50.3 % Plt 253 150 - 400 K/cumm MPV 11.8 9.1 - 12.3 fL RBC 3.26 (L) 4.30 - 5.80 M/cumm MCV 91.4 81.3 - 96.4 fL MCH 29.8 27.1 - 33.3 pg MCHC 32.6 32.3 - 35.7 g/dL RDW CV 13.2 11.1 - 14.9 % RDW SD 43.4 35.7 - 48.1 fL NRBC abs 0.00 0.00 - 0.01 K/cumm Basic metabolic panel Collection Time: 05/13/21 6:13 AM Result Value Ref Range Sodium 127 (L) 135 - 145 mmol/L Potassium, pl 3.5 3.3 - 4.9 mmol/L Chloride 94 (L) 97 - 110 mmol/L CO2 22 22 - 32 mmol/L Anion gap 11 2 - 15 mmol/L BUN 27 (H) 8 - 25 mg/dL Creatinine 0.76 (L) 0.80 - 1.30 mg/dL Glucose 249 (H) 70 - 199 mg/dL Calcium 8.1 (L) 8.5 - 10.3 mg/dL Phosphorus Collection Time: 05/13/21 6:13 AM Result Value Ref Range Phosphorus, pl 2.7 2.3 - 4.5 mg/dL Magnesium Collection Time: 05/13/21 6:13 AM Result Value Ref Range Magnesium 2.1 1.4 - 2.5 mg/dL eGFR Collection Time: 05/13/21 6:13 AM Result Value Ref Range eGFR 100 mL/min/1.73 m2 POCT glucose Collection Time: 05/13/21 8:16 AM Result Value Ref Range Glucose, POC 210 (H) 70 - 199 mg/dL POCT glucose Collection Time: 05/13/21 5:24 PM Result Value Ref Range Glucose, POC 194 70 - 199 mg/dL Assessment/Recommendations: 1. Uncontrolled type 2 diabetes mellitus complicated by hyperglycemia post CABG Blood sugars in 170-250 range Hemoglobin A1c on admission 13.5 Adjusted insulin regimen Decrease Lantus to 24 units subQ daily at bedtime Humalog 10 units t.i.d. with meals Continue current dose of Humalog correction sliding scale Patient will be NPO from midnight - plan to undergo procedure by Urology tomorrow Consider to start metformin post procedure ( based on pt renal function ) Continue to monitor patient blood sugar further adjust his insulin regimen accordingly. 2. STEMI , s/p stent s/p cabg 3. Hematuria : as per Urology 4. HLD on statin therapy Thank you for allowing in taking care of this patient. Will continue to follow along with you. Sixto Hurtado MD 05/13/2021 F FORESTER * Yves Weinberg MD - 05/10/2021 5:41 PM CST Nephrology Consult [facility] Reason for Consult: hyponatremia Requesting Provider: Nalini Clayton MD Subjective Patient is a 60 y.o. male with chief complaint of CP. Reason for consult: hyponatremia HPI: 60 year old wm from [place]. Na chronically low. 129 today and hence the consult. 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 Long smoking hx. Recent hematuria and urology following. S/p CABG and has done well for most part. Urine still bloody. D/w Dr Clayton, discussed pt briefly with him. Did have orthostasis yesterday. Ms. Elias is a 60-year-old gentleman with a history of coronary artery disease status post multiple PCIs with stent placement. He awoke yesterday morning unable to void and was found to have hematuria for which she underwent what sounds to be a cystoscopy and a Osorio catheter was placed. He was discharged home and developed chest pain and shortness of breath. He presented to an outside hospital and was found to have EKG findings concerning for myocardial infarction. He was subsequently transferred to the cardiac catheterization lab here at [facility] where he underwent coronary angiography via right common femoral artery which demonstrated an LAD multiple stenoses and unde rwent PTCA of the LAD and diagonal. Left ventriculogram demonstrated moderate anteroapical hypokinesis. The case was discussed with Dr. Granados. An intra- aortic balloon pump was placed via the right common femoral access in demonstrates good augmentation on bedside exam. He was started on Integrilin and heparin drips and transferred to the ICU for planned CABG. He has subsequently developed hyponatremia and hypokalemia. ?? Past Medical History: Diagnosis Date ??? Chronic obstructive pulmonary disease (CMS/HCC) (HCC) COPD ??? Coronary artery disease ??? Diabetes mellitus (HCC) ??? H/O heart artery stent 2006 ??? Hypertension Hypertension ??? ST elevation (STEMI) myocardial infarction (HCC) 05/01/2021 No past surgical history on file. Medications Prior to Admission Medication Sig Dispense Refill Last Dose ??? aspirin 325 mg tablet take 1 Tablet (325MG) by oral route every day 0 ??? carvedilol (COREG) 6.25 mg tablet TAKE 1 TABLET (6.25MG) BY ORAL ROUTE 2 TIMES EVERY DAY WITH FOOD 60 0 ??? fenofibrate (TRIGLIDE) 160 mg tablet take 1 tablet (160MG) by oral route every day 0 ??? glimepiride (AMARYL) 2 mg tablet take 1 tablet (2MG) by oral route every day 0 ??? insulin glargine (LANTUS) 100 unit/mL cartridge inject by subcutaneous route as per insulin protocol 0 ??? lisinopril (PRINIVIL,ZESTRIL) 10 mg tablet take 1 Tablet (10MG) by oral route every day 0 ??? pantoprazole DR (PROTONIX) 40 mg EC tablet take 1 tablet (40MG) by oral route every day 0 ??? prasugrel (EFFIENT) tablet take 1 tablet (10MG) by oral route every day 30 6 ??? pravastatin (PRAVACHOL) 80 mg tablet take 1 tablet (80MG) by oral route every day 0 Allergies Allergen Reactions ??? Metoclopramide Social History Tobacco Use ??? Smoking status: Current Every Day Smoker Packs/day: 1.00 Years: 40.00 Pack years: 40.00 Types: Cigarettes ??? Smokeless tobacco: Not on file ??? Tobacco comment: Smoking History Packs/day: 1 Packs Substance Use Topics ??? Alcohol use: No Family History Problem Relation Age of Onset ??? COPD Father Review of Systems: As per HPI Objective Vitals: 24hr Min/Max: Temp Min: 36.4 ??C (97.6 ??F) Max: 36.8 ??C (98.2 ??F) Pulse Min: 78 Max: 107 BP Min: 105/71 Max: 124/72 Resp Min: 18 Max: 18 SpO2 Min: 90 % Max: 95 % Most Recent: Vitals: 05/10/21 1600 05/10/21 1607 05/10/21 1612 05/10/21 1620 BP: 109/66 BP Location: Right arm Patient Position: Lying Pulse: 84 88 94 89 Resp: 18 Temp: 36.4 ??C (97.6 ??F) TempSrc: Oral SpO2: 95% 92% Weight: Height: Intake/Output Summary (Last 24 hours) at 05/10/2021 1741 Last data filed at 05/10/2021 1628 Gross per 24 hour Intake 1280 ml Output 1305 ml Net -25 ml Physical Exam: EOMI HEENT wnl NECK supple Lungs coarse COR RRR ABD soft, bs pos EXT no edema TRICHOLOGIST grossly non focal Dialysis Access Exam: NA Lab/Radiology/Diagnostic Review: Recent Results (from the past 24 hour(s)) POCT glucose Collection Time: 05/09/21 6:13 PM Result Value Ref Range Glucose, POC 192 70 - 199 mg/dL POCT glucose Collection Time: 05/09/21 10:52 PM Result Value Ref Range Glucose, POC 257 (H) 70 - 199 mg/dL POCT glucose Collection Time: 05/10/21 1:09 AM Result Value Ref Range Glucose, POC 216 (H) 70 - 199 mg/dL Basic metabolic panel Collection Time: 05/10/21 5:02 AM Result Value Ref Range Sodium 129 (L) 135 - 145 mmol/L Potassium, pl 3.6 3.3 - 4.9 mmol/L Chloride 90 (L) 97 - 110 mmol/L CO2 25 22 - 32 mmol/L Anion gap 14 2 - 15 mmol/L BUN 23 8 - 25 mg/dL Creatinine 0.91 0.80 - 1.30 mg/dL Glucose 187 70 - 199 mg/dL Calcium 9.4 8.5 - 10.3 mg/dL CBC without differential Collection Time: 05/10/21 5:02 AM Result Value Ref Range WBC 21.2 (H) 3.8 - 9.9 K/cumm Hgb 12.4 (L) 13.0 - 17.5 g/dL Hct 37.7 (L) 38.9 - 50.3 % Plt 344 150 - 400 K/cumm MPV 11.4 9.1 - 12.3 fL RBC 4.19 (L) 4.30 - 5.80 M/cumm MCV 90.0 81.3 - 96.4 fL MCH 29.6 27.1 - 33.3 pg MCHC 32.9 32.3 - 35.7 g/dL RDW CV 13.5 11.1 - 14.9 % RDW SD 44.3 35.7 - 48.1 fL NRBC abs 0.00 0.00 - 0.01 K/cumm Phosphorus Collection Time: 05/10/21 5:02 AM Result Value Ref Range Phosphorus, pl 3.9 2.3 - 4.5 mg/dL Magnesium Collection Time: 05/10/21 5:02 AM Result Value Ref Range Magnesium 1.8 1.4 - 2.5 mg/dL eGFR Collection Time: 05/10/21 5:02 AM Result Value Ref Range eGFR 92 mL/min/1.73 m2 POCT glucose Collection Time: 05/10/21 5:14 AM Result Value Ref Range Glucose, POC 188 70 - 199 mg/dL POCT glucose Collection Time: 05/10/21 7:57 AM Result Value Ref Range Glucose, POC 209 (H) 70 - 199 mg/dL POCT glucose Collection Time: 05/10/21 12:24 PM Result Value Ref Range Glucose, POC 207 (H) 70 - 199 mg/dL POCT glucose Collection Time: 05/10/21 4:13 PM Result Value Ref Range Glucose, POC 209 (H) 70 - 199 mg/dL Recent Labs Lab Units 05/04/21 1013 CLARITY U Cloudy* COLOR U Red* KETONES UR Trace NITRITE UR Negative SPEC GRAV U 1.015 UROBILINOGEN UR mg/dL <2.0 WBC UR QT /HPF 11-* XR Chest 1 View - Portable - in AM Result Date: 05/10/2021 Narrative: EXAMINATION: XR CHEST 1 VIEW DATE: 05/10/2021 2:40 AM COMPARISON: 05/09/2021 HISTORY: 60-year-old man cardiac surgery follow-up FINDINGS:Compared with study the previous day, significant improvement. There is cardiomegaly with postsurgical changes with continued and decreasing failure. Bibasilar atelectasis with left pleural fluid decreasing. No pneumothorax. [place] catheter remainsin place Impression: Decreasing failure, atelectasis and left effusion. Electronically signed by: Deandre Lomeli M.D. XR Chest 1 View - Portable - in AM Result Date: 05/09/2021 Narrative: EXAMINATION: XR CHEST 1 VIEW DATE: 05/09/2021 4:10 AM HISTORY: 60-year-old man cardiac surgery follow-up FINDINGS:Compared with study the previous day, significant improvement. There is cardiomegaly with postsurgical changes with continued but decreasing failure. Bibasilar atelectasis with left pleural fluid decreasing. No pneumothorax. [place] catheter remains in place Impression: Decreasing failure, atelectasis and left effusion. Electronically signed by: Deandre Lomeli M.D. XR Chest 1 View - Portable - in AM Result Date: 05/08/2021 Narrative: EXAMINATION: XR CHEST 1 VIEW DATE: 05/08/2021 4:15 AM HISTORY: 60-year-old man cardiac surgery follow-up FINDINGS:Compared with study the previous day, significant improvement. There is cardiomegaly with postsurgical changes with continued but decreasing failure. Bibasilar atelectasis with left pleural fluid. No pneumothorax. [place] catheter remains in place Impression: Decreasing failure. No pneumothorax. Electronically signed by: Deacon Cummings M.D. XR Chest 1 View - Portable - in AM Result Date: 05/07/2021 Narrative: EXAMINATION: XR CHEST 1 VIEW DATE: 05/07/2021 3:55 AM HISTORY: 60-year-old man follow-upcardiac surgery FINDINGS:Compared with study of the previous day, postsurgical changes in the heartand mediastinum with cardiomegaly are stable. [place] catheter remains in place. Left thoracostomy tube remains in place. No pneumothorax. Pulmonary vascular congestion with interstitial lung disease remain prominent. Impression: Persistent prominent interstitial lung disease with failure. Electronically signed by: Deacon Cummings M.D. XR Chest 1 View - Portable - in AM Result Date: 05/06/2021 Narrative: EXAMINATION: XR CHEST 1 VIEW DATE: 05/06/2021 4:05 AM INDICATION: Cardiac surgery. COMPARISON: 05/05/2021. FINDINGS: No pneumothorax or pleural effusion. Similar-appearing pulmonary vascular congestion and interstitial opacities most notable in the bilateral upper lobes consistent with pulmonary edema. Pulmonary catheter catheter, left thoracostomy tube, and mediastinal drain are appropriately position. Intra-aortic balloon pump is appropriately positioned. Interval removal of endotracheal tube. Impression: 1. Interval removal of endotracheal tube. Remaining tubes and lines are appropriately positioned. 2. Similar-appearing cardiomegaly, pulmonary vascular congestion, and prominent bilateralinterstitial markings suggestive of interstitial pulmonary edema. Electronically signed by: Richard Zhao II, D.O. XR Chest 1 View - Portable - in AM Result Date: 05/05/2021 Narrative: EXAMINATION: XR CHEST 1 VIEW DATE: 05/05/2021 4:15 AM HISTORY: 60-year-old man cardiac surgery follow-up FINDINGS:Compared with the study of the prior day, tubes and catheters remain satisfactorily positioned. Worsening pulmonary vascular congestive changes are seen. Cardiomegaly with postsurgical changes stable. No pneumothorax. Impression: Increasing failure. Electronically signed by: Deacon Cummings M.D. XR Chest 1 Vw Portable Result Date: 05/05/2021 Narrative: EXAMINATION: XR CHEST 1 VIEW DATE: 05/04/2021 8:40 PM HISTORY: 60-year-old man coronary artery bypass follow-up FINDINGS:Compared with the study of earlier the same day, postsurgical changes now evident within the heart and mediastinum with cardiomegaly. Interval placement of endotracheal tube, nasogastric tube, [place] catheter, left thoracostomy tube and mediastinal drain all in satisfactory position. No pneumothorax. Interstitial lung disease with mild pulmonary vascular congestive changes. Aortic balloon pump is no longer seen. Impression: Tube placements with postsurgical changes with cardiomegaly with interstitial lung disease and mild failure with no pneumothorax. Electronically signed by: Deacon Cummings M.D. XR Chest 1 Vw Portable Result Date: 05/04/2021 Narrative: EXAMINATION: XR CHEST 1 VIEW DATE: 05/04/2021 9:05 AM HISTORY: Coronary artery disease FINDINGS:Comparison is made with study of 2 days earlier. Cardiomegaly, COPD with interstitial lung disease stable. Mild failure. Aortic balloon pump stable in position at the proximal descending aorta. No pneumothorax. No new infiltrates. Impression: Stable appearance. COPD cardiomegaly, with mild failure suspected. Electronically signed by: Deacon Cummings M.D. XR Chest 1 Vw Portable Result Date: 05/02/2021 Narrative: EXAMINATION: XR CHEST 1 VIEW DATE: 05/02/2021 5:15 AM INDICATION: Intra-aortic balloon pump. COMPARISON: 05/01/2021. FINDINGS: Appropriately positioned intra-aortic balloon pump appears unchanged. No pneumothorax or pleural effusion. Mixed reticular and alveolar opacities demonstrated inall lung lobes appear most significant in the upper lobes and perihilar regions, unchanged. Impression: 1. Appropriately positioned intra-aortic balloon pump. 2. Similar mixed reticular and alveolar opacities most notable in the bilateral upper lobes and perihilar region. Electronically signed by: Richard Lopez II, D.O. XR Chest 1 Vw Portable Result Date: 05/02/2021 Narrative: EXAMINATION: XR CHEST 1 VIEW DATE: 05/01/2021 8:15 PM INDICATION: Hypoxia. COMPARISON: None. FINDINGS: No pneumothorax. No pleural effusion. Mixed reticular and alveolar opacities are demonstrated in all lung lobes but demonstrate an upper lobe and perihilar predominance. Findings may represent pulmonary edema on background of centrilobular emphysematous changes. Underlying infectious process not entirely excludable. Cardiac mediastinal silhouette is stable in appearance. No acute osseous abnormality. Impression: Mixed reticular and alveolar opacities are demonstrated in all lung lobes but demonstrate an upper lobe and perihilar predominance. Findings may represent pulmonary edema on background ofcentrilobular emphysematous changes. Electronically signed by: Richard Lopez II, D.O. Transthoracic Echo (TTE) Limited Result Date: 05/07/2021 Narrative: [place] [address] Limited Echocardiogram Report Patient Name: DEEPAK ALVARADO : 1960 StudyDate: 05/07/2021 12:16:52 PM Gender: M Tech: SR Location: [id number] Ref.Provider: RHINA GRANADOS Height(Cm): 175 BSA: 2.1 Weight(Kg): 91 Heart Rate: 82 BP: 127/44 Quality: Good Order Provider: Dr. Sutton Procedures: Echocardiographic Report: Limited transthoracic echocardiogram with 2D and M-Mode. Measurements: 2D/M Mode Measurement Value Normal Range LVIDd 2D 3.43 [ 4.20 -5.90 ] cm LVIDs 2D 2.59 [ 2.30 - 3.90 ] cm LVPWd 2D 1.01 [ 0.60 - 1.00 ] cm IVSd 2D 0.71 [ 0.60 - 0.90 ] cm Findings: Left Ventricle: Reduced left ventricular cavity size. Mild global left ventricular systolic dysfunction. Ejection fraction is measured at 42 %. These segments of the LV are hypokinetic: apical anterior segment. Pericardium: Trivial pericardial effusion. No echocardiographic evidence to suggest pericardial tamponade. Conclusions: Reduced left ventricular cavity size. Mild globalleft ventricular systolic dysfunction. Ejection fraction is measured at 42 %. These segments of theLV are hypokinetic: apical anterior segment. Trivial pericardial effusion. No echocardiographic evidence to suggest pericardial tamponade. Electronically Signed By: Gianni Francois MD, [facility] 2021-05-07 12:54:09 STAFF FORESTER Transthoracic Echo Complete W Doppler/CF Result Date: 05/02/2021 Narrative: [place] [address] Echocardiogram Report Patient Name: DEEPAK ALVARADO W : 1960 Study Date: 05/02/2021 8:50:02 AM Gender: M Tech: Location: [place] [id number] Ref Provider: NALINI CLAYTONHeight(Cm): 175 BSA: 2.11 Weight(Kg): 92 Heart Rate: 89 BP: 102/52 Quality: Good Order Provider: NALINI CLAYTON PROCEDURES: Echocardiographic Report: Transthoracic echocardiogram with complete 2D, M-Mode, and color Doppler examination. INDICATIONS: Free Text. Measurements: 2D/M Mode Doppler Measurement Value Normal Range Measurement Value Normal Range EF Teich 2D 30.0 [ 55.0 - 70.0 ] percent CHRISTINA Vmax 2.04 [ 2.00 - 4.00 ] cm2 EF Mod 4C 42.2 [ 55.0 - 70.0 ] percent AV Mean PG 5 [ 2 - 4 ]mmHg LVIDd 2D 4.54 [ 4.20 - 5.90 ] cm AV Peak Ramesh 1.54 [ 1.00 - 1.70 ] m/s LVIDs 2D 3.91 [ 2.30 - 3.90 ] cm AV VTI 26.93 cm LVPWd 2D 0.92 [ 0.60 - 1.00 ] cm LVOT Diam 2.20 [ 1.70 - 2.10 ] cm IVSd 2D 0.76 [ 0.60 - 0.90 ] cm LVOT Peak Ramesh 0.83 [ 0.70 - 1.10 ] m/s LA Dimension MM 5.08 [ 3.00 - 4.00 ] cm LVOT VTI 13.82 [ 20.00 - 30.00 ] cm AoR Diam MM 4.12 [ 2.60 - 3.70 ] cm MV E Peak Ramesh 0.85 [ 0.60- 1.30 ] m/s LA Volume Index 20.83 [ 16.00 - 28.00 ] cc/m2 MV A Peak Ramesh 1.14 [ 1.00 - 1.20 ] m/s ACS MM 1.91 [ 1.50 - 2.60 ] cm MV Mean PG 1 [ <= 5 ] mmHg MV PHT 43 [ 20 - 100 ] msec MVA 2.20 MVDecel Time 137 [ 104 - 258 ] msec PV Peak Ramesh 1.10 [ 0.40 - 0.80 ] m/s TR Peak Ramesh 1.32 [ 1.00 - 2.80 ] m/s TR Peak PG 7 mmHg RVSP 16.93 [ 10.00 - 36.00 ] mmHg E' 0.06 E/E' 14.00 Measurement Value Normal Range Measurement Value Normal Range 2D/M Mode Doppler - FINDINGS: Atrial Septum: Normal atrial septum. Left Ventricle: Normal left ventricular size. Left ventricle not well visualized. There is severe hypokinesis of the mid anteroseptal, anterior, and apical mancilla. Normal left ventricular wall thickness. Impaired diastolic relaxation Grade I. Ejection fraction is visually estimated at 40 %. Left Atrium: The left atrium is normal in size. Right Ventricle: Normal right ventricular size. Normal right ventricular systolic function. Right Atrium: The right atrium is normal in size. Aortic Valve: Normal structure of the aortic valve. No evidence of hemodynamically significant aortic stenosis by Doppler. No aortic regurgitation. Mitral Valve: Normal structure of the mitral valve. Trivial regurgitation of the mitral valve. Pulmonic Valve: Pulmonic valve not well visualized. Trivial regurg itation in the pulmonic valve. Tricuspid Valve: Normal structure of the tricuspid valve. Trivial regurgitation in the tricuspid valve. Pericardium: Normal pericardium with no significant pericardial effusion. Aorta: Normal aortic root. IVC: Normal size and normal respiratory collapse consistent with normal right atrial pressure (<5 mmHg). CONCLUSIONS: Technically difficult study with limited views. Normal left ventricular size. Left ventricle not well visualized. There is severe hypokinesis of the mid anteroseptal, anterior, and apical mancilla. Normal left ventricular wall thickness. Impaired diastolic relaxation Grade I. Ejection fraction is visually estimated at 40 %. Normal right ventricular size. Normal right ventricular systolic function. Normal structure of the mitral valve. Trivial regurgitation of the mitral valve. Normal structure of the tricuspid valve. Trivial regurgitation in the tricuspid valve. Electronically Signed By: Rylee Brito DO, [facility] EDMONDSJustyna, [place], [facility] 2021-05-02 14:07:25 STAFF FORESTER CC: CC: CC: Assessment/Plan Principal Problem: ST elevation myocardial infarction (STEMI) (HCC) -Hyponatremia from SIADH and possibly from zaroxylyn use. Work up for hyponatremia will be ordered. PO FR. DC Zaroxylyn. No normotonic fluids yet. Urine lytes and osm. If in clinical fluid overload, may use tolvaptan. Renal fn is normal. Recent bladder tumor removal with hematuria. ?? -??Urology is following.H/H stable Hypokalemia from diuresis. Replace PRN. 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 ?? Syncopal episode -(+) orthostasis -receiving albumin -IV lasix was discontinued. There is a 1x order for zaroxolyn 10mg this am- recommend holding for now. D/w RN ?? Coronary artery disease -s/p CABG post STEMI -??underwent four-vessel bypass ??MAE to the LAD, sequential saphenous vein graft to diagonal and obtuse marginal and a vein graft to the PDA. -s/p low dose dobutamine -paced rhythm -??IV??diuretics discontinued d/t syncopal episode today (see above) ?? Moderate LV dysfunction -s/p IV lasix and??low dose??dobutamine -Beta blockers, ??[place] once off dobutamine-would hold off adding given syncopal episode this am -repeat ECHO 05/07 EF 42% (see above) ?Nonsustained ventricular tachycardia -no recurrence of VT -K 3.7, Mg??2.0. ??Supplement to keep K >/= 4.0, Mg >/= 2.0 ?Diabetes mellitus -?on lantus and SSI ?? COPD: ?? -on?O2 NC 4L (dried blood to L nare humidified o2 ordered) ?? Dyslipidemia -?Continue atorvastatin. ?PAD -?Stable ? Anemia -Hb??11.4 (10.5)??(8.6) -monitor ? Yves Weinberg MD 5:41 PM 05/10/2021 F FORESTER * Cristina Anaya, RD - 05/05/2021 3:51 PM CSTAssociated Order(s): IP CONSULT TO NUTRITION SERVICES Nutrition Assessment Reason for Assessment: Initial Nutrition Assessment and Consult/Referral Consult for: Diet education Encounter Date: 05/05/21 3:51 PM Nutrition Assessment and Plan: Patient is a 60 y.o. male. Admit Dx: STEMI. Admitted on 05/01/2021, current LOS is 4 days. Patient currently in the ICU, POD#1 S/P CABG x 4. PMH of COPD, CAD, DM, HTN. Surgical incision to chest and right leg with NAVA drains. Pt self- extubated this AM, currently requiring Bipap. Unable to remove mask long enough to consume PO. Follow for improvement in pulmonary status and PO diet advancement. Offer oral supplement and diet education as needed. Limited documented weights available to assess. Current diet order: NPO Diet Pt intake is currently inadequate. PO intakes prior to NPO status: 25% x 3, 100% x 1 Nutrition Diagnosis 1: Inadequate oral intake Related to: NPO status,Recent surgery Evidenced by: Other (comment),Physical finding (+Bipap) Nutrition Diagnosis 2: Increased nutrient needs (protein)Related to: Recent surgeryEvidenced by: Physical finding ?? Interventions: Communication,Other (comment) (Following for MNT plan per pulmonary status) ?? Monitoring and Evaluation: Blood glucoses,Diet advancement,Discharge plans,GI output,Labs,Plan of care,Weight changes,Wound healing ?? Goals: Adequate nutrition to meet estimated needs by next assessment,Advance to oral intake as medically able Estimated needs: ?? MSJ Total Energy Needs: 2062.8 kcal using Activity Factor: 1.2 ?? Total Protein Estimated Needs (gm): 109.56 Protein Needs Based on g/k.2 Type of Weight Used for Estimated Protein : Current. ?? Estimated Fluid Needs ?? Type of Weight Used for Estimated Fluid Needs: Current ?? Fluid Needs Based on : 1 ml/kcal ?? Total Fluid Estimated Needs: 2063 mL/day Objective Anthropometrics Weight: 91.3 kg (201 lb 4.5 oz) Admission Weight : 86.2 kg Weight Change: -0.46 kg (-1.02 lbs) IBW/kg (Calculated) : 72.6 kg Height: 175.3 cm (5' 9.02 ) Weight in (lb) to have BMI = 25: 169 BMI (Calculated): 29.7 3 Day I/O Summary 05/03 1900 - 05/05 0659 In: 04934 [P.O.:120; I.V.:6474] Out: 3995 [Urine:1270] Temp: 36.7 ??C (98.1 ??F) Minute Ventilation (L/min): 12.7 L/min Past Medical History: Diagnosis Date ??? Chronic obstructive pulmonary disease (CMS/HCC) ([facility]) COPD ??? Coronary artery disease ??? Diabetes mellitus ([facility]) ??? H/O heart artery stent 2006 ??? Hypertension Hypertension ??? ST elevation (STEMI) myocardial infarction ([facility]) 05/01/2021 Medications and Lab Review: Scheduled Meds: albuterol, 2.5 mg, nebulization, Q4H LEAH (RT) aspirin, 324 mg, oral, Daily atorvastatin, 80 mg, oral, Daily cefepime, 1,000 mg, intravenous, Q8H docusate sodium, 100 mg, oral, BID Or docusate, 100 mg, feeding tube, BID furosemide, 40 mg, intravenous, Q8H lidocaine, 2 patch, transdermal, Daily pantoprazole, 40 mg, intravenous, Daily sodium chloride 0.9%, 0.5-20 mL, intra-catheter, Q8H LEAH vancomycin, 1,500 mg, intravenous, Q12H Continuous Infusions: dexmedeTOMIDine, 0-1.5 mcg/kg/hr, Last Rate: 0.5 mcg/kg/hr (05/05/21 1500) DOButamine, 5 mcg/kg/min, Last Rate: 5 mcg/kg/min (05/05/21 1500) insulin regular, 0-30 Units/hr, Last Rate: 0 Units/hr (05/05/21 0816) norepinephrine, 0-2 mcg/kg/min, Last Rate: Stopped (05/05/21 1200) propofol, 0-50 mcg/kg/min, Last Rate: Stopped (05/05/21 0930) sodium chloride 0.9 %, 3,000 mL sodium chloride 0.9%, 20 mL/hr, Last Rate: 20 mL/hr (05/04/21 2309) sodium chloride 0.9%, 3-12 mL/hr Sodium Date Value Ref Range Status 05/05/2021 141 135 - 145 mmol/L Final Potassium, pl Date Value Ref Range Status 05/05/2021 3.6 3.3 - 4.9 mmol/L Final BUN Date Value Ref Range Status 05/05/2021 7 (L) 8 - 25 mg/dL Final Creatinine Date Value Ref Range Status 05/05/2021 0.53 (L) 0.80 - 1.30 mg/dL Final Comment: Icteric sample, test results may be affected. Phosphorus, pl Date Value Ref Range Status 05/05/2021 3.4 2.3 - 4.5 mg/dL Final Albumin Date Value Ref Range Status 05/04/2021 3.1 (L) 3.5 - 5.0 g/dL Final Magnesium Date Value Ref Range Status 05/05/2021 2.1 1.4 - 2.5 mg/dL Final Calcium Date Value Ref Range Status 05/05/2021 8.3 (L) 8.5 - 10.3 mg/dL Final Lab Results Component Value Date HGBA1C 13.5 (H) 05/03/2021 Lab Results Component Value Date GLUCOSE 137 05/05/2021 GLUCOSE 163 05/05/2021 GLUCOSE 119 05/05/2021 GLUCOSE 136 05/05/2021 GLUCOSE 119 05/05/2021 GLUCOSE 95 05/05/2021 GLUCOSE 126 05/05/2021 GLUCOSE 135 05/05/2021 GLUCOSE 97 05/05/2021 GLUCOSE 165 05/04/2021 Nursing Assessment: Bowel Sounds (All Quadrants): Hypoactive Marko Scale Score: 16 Skin Integrity: Surgical incision Diet Instructions Recommend to eat a generally healthy diet that includes a variety of fruits, vegetables, whole-grain breads, low-fat dairy products, beans, lean meats, and fish. Avoid saturated and trans fats and limit sodium to less than 2,300 mg per day. Avoid foods like desserts, fast food, fried/breaded foods,deli meats, sausage, ruiz, and gravies/sauces. For a Consistent Carbohydrate Diet: Aim to consume 3 meals each day with 60-75 grams of carbohydrate at each one, avoid skipping meals. Avoid sugary drinks like lemonade, regular soda, gatorade, and sweet tea and drink water throughout the day.Monitor your blood sugar and take insulin and medication as directed by your doctor. Call [phone] to speak with a dietitian about any diet related concerns. Recommend to follow up with outpatient nutrition counseling, ask your doctor for a referral and call [phone] to make an appointment. Nutrition Follow-Up : 05/08/[address],LD F FORESTER * Ralf Tomlinson MD - 05/05/2021 11:15 AM CST Pulmonary Consult Reason for Consult: respiratory failure HPI: 60 yo man w COPD, DM, CAD/stents admitted 05/01/21 with chest pain. Had recent hematuria as well. Workup revealed an acute MT. Cath showed multi-vessel CAD. Had balloon pump placed. CABG x 4 done on 05/04/21. He was continued on mechanical ventilation and self extubated this AM (05/05/21). He is on multiple pressors. Sedated with precedex. Some tachypnea. A balloon pump is in place. Current tobacco use. COPD listed as prior diagnosis. No inhalers on home med list. Past Medical History: Diagnosis Date ??? Chronic obstructive pulmonary disease (CMS/HCC) (HCC) COPD ??? Coronary artery disease ??? Diabetes mellitus (HCC) ??? H/O heart artery stent 2006 ??? Hypertension Hypertension ??? ST elevation (STEMI) myocardial infarction (HCC) 05/01/2021 No past surgical history on file. Medications Prior to Admission Medication Sig Dispense Refill Last Dose ??? aspirin 325 mg tablet take 1 Tablet (325MG) by oral route every day 0 ??? carvedilol (COREG) 6.25 mg tablet TAKE 1 TABLET (6.25MG) BY ORAL ROUTE 2 TIMES EVERY DAY WITH FOOD 60 0 ??? fenofibrate (TRIGLIDE) 160 mg tablet take 1 tablet (160MG) by oral route every day 0 ??? glimepiride (AMARYL) 2 mg tablet take 1 tablet (2MG) by oral route every day 0 ??? insulin glargine (LANTUS) 100 unit/mL cartridge inject by subcutaneous route as per insulin protocol 0 ??? lisinopril (PRINIVIL,ZESTRIL) 10 mg tablet take 1 Tablet (10MG) by oral route every day 0 ??? pantoprazole DR (PROTONIX) 40 mg EC tablet take 1 tablet (40MG) by oral route every day 0 ??? prasugrel (EFFIENT) tablet take 1 tablet (10MG) by oral route every day 30 6 ??? pravastatin (PRAVACHOL) 80 mg tablet take 1 tablet (80MG) by oral route every day 0 Scheduled Meds:albuterol, 2.5 mg, nebulization, Q4H LEAH (RT) aspirin, 324 mg, oral, Daily atorvastatin, 80 mg, oral, Daily cefepime, 1,000 mg, intravenous, Q8H docusate sodium, 100 mg, oral, BID Or docusate, 100 mg, feeding tube, BID furosemide, 40 mg, intravenous, Q8H lidocaine, 2 patch, transdermal, Daily pantoprazole, 40 mg, intravenous, Daily sodium chloride 0.9%, 0.5-20 mL, intra-catheter, Q8H LEAH vancomycin, 1,500 mg, intravenous, Q12H Continuous Infusions:dexmedeTOMIDine, 0-1.5 mcg/kg/hr, Last Rate: 0.5 mcg/kg/hr (05/05/21 1100) DOButamine, 5 mcg/kg/min, Last Rate: 5 mcg/kg/min (05/05/21 1100) insulin regular, 0-30 Units/hr, Last Rate: 0 Units/hr (05/05/21 0816) norepinephrine, 0-2 mcg/kg/min, Last Rate: 0.03 mcg/kg/min (05/05/21 1100) propofol, 0-50 mcg/kg/min, Last Rate: Stopped (05/05/21 0930) sodium chloride 0.9 %, 3,000 mL sodium chloride 0.9%, 20 mL/hr, Last Rate: 20 mL/hr (05/04/21 2309) sodium chloride 0.9%, 3-12 mL/hr PRN Meds:.??? acetaminophen ??? albumin ??? dextrose OR dextrose ??? fentaNYL ??? glucagon ??? ondansetron ??? oxyCODONE ??? potassium chloride ??? prochlorperazine Allergies Allergen Reactions ??? Metoclopramide Social History Occupational History ??? Not on file Tobacco Use ??? Smoking status: Current Every Day Smoker Packs/day: 1.00 Years: 40.00 Pack years: 40.00 Types: Cigarettes ??? Smokeless tobacco: Not on file ??? Tobacco comment: Smoking History Packs/day: 1 Packs Substance and Sexual Activity ??? Alcohol use: No ??? Drug use: Yes Frequency: 1.0 times per week Types: Tobacco Comment: 1 ppd current smoker ??? Sexual activity: Defer Family History Problem Relation Age of Onset ??? COPD Father Review of Systems Unable to perform ROS: Mental status change Above review of system reviewed on 05/05/2021 Vitals: Vitals: 05/05/21 1022 05/05/21 1030 05/05/21 1045 05/05/21 1100 BP: BP Location: Patient Position: Pulse: 90 90 90 Resp: 27 23 22 Temp: TempSrc: SpO2: 94% 94% 94% 95% Weight: Height: No data recorded. Oxygen Therapy SpO2: 95 % ETCO2 (mmHg): 24 mmHg PaO2 from Lab: (!) 75 Pulse Oximetry Type: Continuous O2 Therapy: Supplemental oxygen O2 Del Method: High flow nasal cannula FiO2 (%): 60 % O2 Flow Rate (L/min): 60 L/min Adult Vent Mode: Volume control/Assist control Adult Vent Mode: Volume control/Assist control FiO2 (%): [50 %-100 %] 60 % S RR: [14] 14 S VT: [500 mL-600 mL] 500 mL PEEP/CPAP/EPAP (cm H2O): [5 cm H20-8 cm H20] 8 cm H20 Pressure Support (cm H2O): [10 cm H20] 10 cm H20 MAP (cmH2O): [6.7-12] 8.6 . Intake/Output Summary (Last 24 hours) at 05/05/2021 1116 Last data filed at 05/05/2021 0910 Gross per 24 hour Intake 9332 ml Output 3875 ml Net 5457 ml Physical Exam Constitutional: General: He is not in acute distress. Appearance: He is well-developed. HENT: Head: Normocephalic and atraumatic. Nose: Nose normal. Eyes: General: No scleral icterus. Conjunctiva/sclera: Conjunctivae normal. Neck: Thyroid: No thyromegaly. Trachea: No tracheal deviation. Cardiovascular: Rate and Rhythm: Normal rate and regular rhythm. Heart sounds: No murmur heard. No friction rub. No gallop. Pulmonary: Effort: Pulmonary effort is normal. Tachypnea present. No respiratory distress. Breath sounds: No stridor. Decreased breath sounds present. No wheezing or rales. Chest: Comments: Sternotomy incision Chest drain Abdominal: General: Bowel sounds are normal. There is no distension. Palpations: Abdomen is soft. Tenderness: There is no abdominal tenderness. Musculoskeletal: General: No deformity. Cervical back: Normal range of motion. Skin: General: Skin is warm and dry. Neurological: Mental Status: He is lethargic. Psychiatric: Behavior: Behavior normal. Lab/Radiology/Diagnostic Review: Labs: Recent Labs Lab Units 05/05/21 0419 05/05/21 0021 05/04/21 2135 05/02/21 0443 05/01/21 2219 WBC K/cumm 13.2* 14.3* 19.0* < > 15.7* HEMOGLOBIN, POC -- -- -- < > -- HEMOGLOBIN g/dL 10.7* 7.6* 7.2* < > 9.4* HEMATOCRIT % 30.4* 22.6* 21.2* < > 28.2* HEMATOCRIT POC -- -- -- < > -- PLATELETS K/cumm 191 206 215 < > 312 NEUTROS PCT % 84.2 -- -- -- 73.4 LYMPHS PCT % 3.1 -- -- -- 15.5 MONOS PCT % 11.2 -- -- -- 9.8 EOS PCT % 0.2 -- -- -- 0.6 < > = values in this interval not displayed. Recent Labs Lab Units 05/05/21 1114 05/05/21 1019 05/05/21 0909 05/05/21 0507 05/05/21 0419 05/05/21 0255 05/05/21 0225 05/05/21 0107 05/05/21 0021 05/04/21 0803 05/04/21 0247 05/03/21 0736 05/03/21 0419 05/02/21 0443 05/01/21 2219 SODIUM mmol/L -- -- -- -- 143 -- 142 -- 142 < > 131* < > 136 < > 134* POTASSIUM PLASMA mmol/L -- -- -- -- 4.4 -- 4.0 -- 3.9 < > 4.0 < > 4.0 < > 4.0 CHLORIDE mmol/L -- -- -- -- 111* -- 110 -- 109 < > 100 < > 105 < > 103 CO2 mmol/L -- -- -- -- 21* -- 22 -- 24 < > 20* < > 19* < > 19* ANIONGAP mmol/L -- -- -- -- 11 -- 10 -- 9 < > 11 < > 12 < > 12 GLUCOSE mg/dL -- -- -- -- 126 < > 135 < > 97 < > 231* < > 115 < > 157 POC GLUCOSE MONITOR mg/dL 119 136 119 < > -- < > -- < > -- < > -- < >-- < > -- BUN SERUM mg/dL -- -- -- -- 7* -- 7* -- 7* < > 7* < > 6* < > 9 CREATININE mg/dL -- -- -- -- 0.52* -- 0.64* -- 0.51* < > 0.58* < > 0.51* < > 0.63* CALCIUM mg/dL -- -- -- -- 7.0* -- 8.2* -- 8.4* < > 8.5 < > 8.6 < > 8.1* ALBUMIN g/dL -- -- -- -- -- -- -- -- -- -- 3.1* -- 3.2* -- 3.2* ALK PHOS Units/L -- -- -- -- -- -- -- -- -- -- 69 -- 70 -- 64 ALT Units/L -- -- -- -- -- -- -- -- -- -- 18 -- 23 -- 28 AST Units/L -- -- -- -- -- -- -- -- -- -- 50 -- 98* -- 245* BILIRUBIN TOTAL mg/dL -- -- -- -- -- -- -- -- -- -- 0.4 -- 0.4 -- 0.3 < > = values in this interval not displayed. Recent Labs Lab Units 05/05/21 1015 05/05/21 0650 05/05/21 0441 PH ART 7.45 7.41 7.42 PCO2 ART mmHg 29* 35 34* PO2 ART mmHg 75* 72* 80* HCO3 ART (CALC) mmol/L 22 23 23 BASE EXC ART mmol/L -4 -2 -2 O2 SAT ART (JOELLE) % 96* 95 96* Imaging: CXR 05/05/21: b infiltrates Other diagnostic tests: Echo 05/02/21: EF 40% I have personally reviewed above laboratory findings, chest imaging, and diagnostic tests. 05/05/2021 Assessment and Plan: Acute respiratory failure Acute MT w CAD s/p CABG x 4 on 05/04/21, past hx multiple stents Cardiogenic shock Cardiomyopathy EF 40% V fib Hx COPD Anemia Infiltrates: edema v pna Recs: Optiflow, adjust as needed, may also consider bipap High risk for re-intubation Hemodynamic support abx coverage for pna Tracheal aspirate pending Scheduled bronchodilators Follow CXR Chart reviewed Discussed w RN and RT F FORESTER * Edward Trejo, DO - 05/04/2021 8:09 AM CSTAssociated Order(s): IP CONSULT TO UROLOGY; IP CONSULT TO UROLOGY Images from the original note were not included. DEPARTMENT OF SURGERY, DIVISION OF UROLOGY INPATIENT / HOSPITAL CONSULTATION Reason for Consult: blood clots occluding osorio, request CBI Requesting Physician: Dr. Evans Consulting Physician: Edward Trejo DO, RAYNA Subjective Deepak Adair Lazarus is a 60 y.o. male who we have been asked to see in consultation for gross hematuria. He is admitted for cardiac workup and intervention. He is on the schedule for CABG today. Apparently had a cystoscopy with clot evacuation at [place] about a week ago. He was told he had a tumor. I do not have these records for review. This was done by the private Urology group. He is a smoker. We have been asked to see him regarding gross hematuria which has been a persistent problem since transferred here to [facility]. The nursing staff hand irrigated him overnight and were in the process of exchanging his catheter for a larger one when I saw him. Past Medical History: Diagnosis Date ??? Chronic obstructive pulmonary disease (CMS/HCC) (HCC) COPD ??? Coronary artery disease ??? Diabetes mellitus (HCC) ??? H/O heart artery stent 2006 ??? Hypertension Hypertension ??? ST elevation (STEMI) myocardial infarction (HCC) 05/01/2021 No past surgical history on file. Social History Tobacco Use ??? Smoking status: Current Every Day Smoker Packs/day: 1.00 Years: 40.00 Pack years: 40.00 Types: Cigarettes ??? Smokeless tobacco: Not on file ??? Tobacco comment: Smoking History Packs/day: 1 Packs Substance Use Topics ??? Alcohol use: No Family History Problem Relation Age of Onset ??? COPD Father Medications Prior to Admission Medication Sig Dispense Refill Last Dose ??? aspirin 325 mg tablet take 1 Tablet (325MG) by oral route every day 0 ??? carvedilol (COREG) 6.25 mg tablet TAKE 1 TABLET (6.25MG) BY ORAL ROUTE 2 TIMES EVERY DAY WITH FOOD 60 0 ??? fenofibrate (TRIGLIDE) 160 mg tablet take 1 tablet (160MG) by oral route every day 0 ??? glimepiride (AMARYL) 2 mg tablet take 1 tablet (2MG) by oral route every day 0 ??? insulin glargine (LANTUS) 100 unit/mL cartridge inject by subcutaneous route as per insulin protocol 0 ??? lisinopril (PRINIVIL,ZESTRIL) 10 mg tablet take 1 Tablet (10MG) by oral route every day 0 ??? pantoprazole DR (PROTONIX) 40 mg EC tablet take 1 tablet (40MG) by oral route every day 0 ??? prasugrel (EFFIENT) tablet take 1 tablet (10MG) by oral route every day 30 6 ??? pravastatin (PRAVACHOL) 80 mg tablet take 1 tablet (80MG) by oral route every day 0 Allergies Allergen Reactions ??? Metoclopramide Review of Systems: Constitutional: negative for anorexia, chills, fevers, malaise, sweats and weight loss Eyes: negative for irritation, redness and visual disturbance Ears, nose, mouth, throat, and face: negative for ear drainage, earaches, epistaxis, facial trauma,nasal congestion, sore mouth, sore throat and voice change Respiratory: negative for cough, dyspnea on exertion, pleurisy/chest pain, stridor and wheezing Cardiovascular: negative for chest pain, chest pressure/discomfort, claudication, exertional chest pressure/discomfort, palpitations, syncope and tachypnea Gastrointestinal: negative for abdominal pain, change in bowel habits, dyspepsia, dysphagia, melenaand nausea Genitourinary: Positive gross hematuria Hematologic/lymphatic: negative for bleeding and easy bruising Musculoskeletal:negative for arthralgias, bone pain and myalgias Neurological: negative for coordination problems, memory problems, seizures and tremors Behavioral/Psych: negative for aggressive behavior, behavior problems and irritability Vitals: Most Recent : Vitals: 05/04/21 0730 BP: (!) 100/38 Pulse: 85 Resp: (!) 33 Temp: SpO2: (!) 89% I/O last 2 completed shifts: In: 239 [P.O.:360; I.V.:2035] Out: 2029 [Urine:2029] Objective Physical Exam: Vitals: 05/04/21 0645 05/04/21 0700 05/04/21 0715 05/04/21 0730 BP: (!) 103/36 123/97 109/56 (!) 100/38 BP Location: Patient Position: Pulse: 84 115 93 85 Resp: 27 17 28 (!) 33 Temp: TempSrc: SpO2: 91% 90% 91% (!) 89% Weight: Height: General: does not appear in acute distress; no pain present Head: normocephalic/atraumatic Eyes: no discharge noted; (R,L) extraocular movements are intact; visual field normal Ears: (R,L) hearing grossly normal Nose/Mouth/Throat: mucous membranes moist Neck: neck inspection is normal; neck ROM normal Respiratory: has normal respiratory effort, non labored Cardiac: normal heart rate present Gastrointestinal: nonobese, abdominal appearance is normal; Exam: Circumcised phallus, orthotopic meatus. 20French catheter three way inserted by the RN in my presence Extremities: (R,L) pink and warm; no edema Musculoskeletal: normal range of motion present Neurology: patient is alert; no gross neurologic deficits Mood: has normal mood and affect Lab/Radiology/Diagnostic Review: Laboratory review: Chemistry BMP Lab Results Component Value Date GLUCOSE 265 (H) 05/04/2021 GLUCOSE 231 (H) 05/04/2021 CALCIUM 8.5 05/04/2021 SODIUM 131 (L) 05/04/2021 POTASSIUM 4.0 05/04/2021 CO2 20 (L) 05/04/2021 BUNSER 7 (L) 05/04/2021 CREATININE 0.58 (L) 05/04/2021 and CBC: Lab Results Component Value Date WBC 16.7 (H) 05/04/2021 RBC 3.25 (L) 05/04/2021 HGB 10.2 (L) 05/04/2021 HCT 29.6 (L) 05/04/2021 MCV 91.1 05/04/2021 MCH 31.4 05/04/2021 MCHC 34.5 05/04/2021 RDWCV 14.3 05/04/2021 RDWSD 47.9 05/04/2021 MPV 12.0 05/04/2021 NRBCABS 0.00 05/04/2021 Recent Results (from the past 24 hour(s)) Prepare RBC: 4 Units Collection Time: 05/03/21 9:26 AM Result Value Ref Range Product code K3184A34 Unit Number [id number] Product Blood Type APOS Dispense Status CROSSMATCHED Product code [id number] Unit Number [id number] Product Blood Type APOS Dispense Status CROSSMATCHED Product code [id number] Unit Number [id number] Product Blood Type APOS Dispense Status CROSSMATCHED Product code [id number] Unit Number [id number] Product Blood Type APOS Dispense Status CROSSMATCHED POCT glucose Collection Time: 05/03/21 11:20 AM Result Value Ref Range Glucose, POC 108 70 - 199 mg/dL POCT glucose Collection Time: 05/03/21 4:46 PM Result Value Ref Range Glucose, POC 177 70 - 199 mg/dL POCT glucose Collection Time: 05/03/21 7:59 PM Result Value Ref Range Glucose, POC 161 70 - 199 mg/dL POCT glucose Collection Time: 05/04/21 2:38 AM Result Value Ref Range Glucose, POC 218 (H) 70 - 199 mg/dL Phosphorus Collection Time: 05/04/21 2:47 AM Result Value Ref Range Phosphorus, pl 2.6 2.3 - 4.5 mg/dL Magnesium Collection Time: 05/04/21 2:47 AM Result Value Ref Range Magnesium 1.6 1.4 - 2.5 mg/dL Comprehensive metabolic panel Collection Time: 05/04/21 2:47 AM Result Value Ref Range Sodium 131 (L) 135 - 145 mmol/L Potassium, pl 4.0 3.3 - 4.9 mmol/L Chloride 100 97 - 110 mmol/L CO2 20 (L) 22 - 32 mmol/L Anion gap 11 2 - 15 mmol/L BUN 7 (L) 8 - 25 mg/dL Creatinine 0.58 (L) 0.80 - 1.30 mg/dL Glucose 231 (H) 70 - 199 mg/dL Calcium 8.5 8.5 - 10.3 mg/dL Bilirubin, total 0.4 0.1 - 1.2 mg/dL Protein, pl 5.8 (L) 6.5 - 8.5 g/dL Albumin 3.1 (L) 3.5 - 5.0 g/dL Alk phos 69 40 - 130 Units/L ALT 18 7 - 55 Units/L AST 50 10 - 50 Units/L aPTT Collection Time: 05/04/21 2:47 AM Result Value Ref Range aPTT 57 (H) 27 - 37 sec Protime-INR Collection Time: 05/04/21 2:47 AM Result Value Ref Range PT 13.4 9.5 - 13.6 sec INR 1.2 0.9 - 1.2 eGFR Collection Time: 05/04/21 2:47 AM Result Value Ref Range eGFR 112 mL/min/1.73 m2 CBC without differential Collection Time: 05/04/21 2:52 AM Result Value Ref Range WBC 16.7 (H) 3.8 - 9.9 K/cumm Hgb 10.2 (L) 13.0 - 17.5 g/dL Hct 29.6 (L) 38.9 - 50.3 % Plt 332 150 - 400 K/cumm MPV 12.0 9.1 - 12.3 fL RBC 3.25 (L) 4.30 - 5.80 M/cumm MCV 91.1 81.3 - 96.4 fL MCH 31.4 27.1 - 33.3 pg MCHC 34.5 32.3 - 35.7 g/dL RDW CV 14.3 11.1 - 14.9 % RDW SD 47.9 35.7 - 48.1 fL NRBC abs 0.00 0.00 - 0.01 K/cumm POCT glucose Collection Time: 05/04/21 8:03 AM Result Value Ref Range Glucose, POC 265 (H) 70 - 199 mg/dL Assessment: Principal Problem: ST elevation myocardial infarction (STEMI) (HCC) 1. Gross hematuria. He underwent cystoscopy, clot evacuation and [facility]ral [facility] by the private Urology group. I do not have the records available for review. I do not have pathology available for review. Plan: [address] catheter inserted by the bedside RN. Proceed with hand irrigation followed by initiation of continuous bladder irrigation. Given his cardiac disease and plans for CABG later todayI think the more prudent option is for him to undergo that surgery and deal with the gross hematuria on the back end. He may need multiple transfusions to keep his hemoglobin up however once he is stable from a cardiac standpoint we can further address the hematuria. Titrate continuous bladder irrigation to keep the output light pink to clear. Irrigate with 60 mL aliquots of normal saline as needed for occlusion. Thank you for allowing me to be a part of the care of your patient. Please call if you have any questions. Edward Trejo DO, MBA [facility] [employer] Department of Surgery, Division of Urology Pager: [phone] 05/04/2021 8:09 AM This note was written using a voice recognition system hardware device. Please note there may be variance in spelling, grammar, and syntax because of the voice recognition system hardware. Not every sentence has been reviewed in its entirety and if there are any concerns about the above please contact Dr. Trejo directly at [phone]. F FORESTER * Wally Aguilar DO - 05/01/2021 8:15 PM CST Images from the original note were not included. Critical Care Medicine Consult Team: [facility] [place] Reason for Consult: Critical care status post acute anterior wall myocardial infarction Requesting Provider: Nalini Clayton MD HPI: Ms. Elias is a 60-year-old gentleman with a history of coronary artery disease status post multiple PCIs with stent placement. He awoke yesterday morning unable to void and was found to have hematuria for which she underwent what sounds to be a cystoscopy and a Osorio catheter was placed. He was discharged home and developed chest pain and shortness of breath. He presented to an outside hospital and was found to have EKG findings concerning for myocardial infarction. He was subsequently transferred to the cardiac catheterization lab here at [facility] where he underwent coronary angiography via right common femoral artery which demonstrated an LAD multiple stenoses and underwent PTCA of the LAD and diagonal. Left ventriculogram demonstrated moderate anteroapical hypokinesis. The case was discussed with Dr. Granados. An intra-aortic balloon pump was placed via the right common femoral access in demonstrates good augmentation on bedside exam. He was started on Integrilin and heparin drips and transferred to the ICU for planned CABG on Tuesday. Currently the patient states his chest pain is resolved and he denies shortness of breath. His onlycomplaint is some back pain which she states is chronic for him when he lays down. He does not usually take anything for this at home. He denies any nausea, shortness of breath, or change in bowel habits. Past Medical History: Diagnosis Date ??? Chronic obstructive pulmonary disease (CMS/HCC) (HCC) COPD ??? Hypertension Hypertension Coronary artery disease Diabetes mellitus Peripheral vascular disease Past surgical history: Multiple PCIs with stent placement History of surgery as a child, possibly a hernia repair but the patient is unsure Allergies Allergen Reactions ??? Metoclopramide Social History Tobacco Use ??? Smoking status: Not on file ??? Smokeless tobacco: Not on file ??? Tobacco comment: Smoking History Packs/day: 0 Packs Substance Use Topics ??? Alcohol use: No Family history: Brain aneurysm in mother HOME MEDICATIONS : aspirin 325 mg tablet carvedilol (COREG) 6.25 mg tablet fenofibrate (TRIGLIDE) 160 mg tablet glimepiride (AMARYL) 2 mg tablet insulin glargine (LANTUS) 100 unit/mL cartridge lisinopril (PRINIVIL,ZESTRIL) [address] (PROTONIX) 40 mg EC tablet prasugrel (EFFIENT) tablet pravastatin (PRAVACHOL) 80 mg tablet Review of Systems: A full 10 point review of systems was conducted and is negative except for as stated above in the history of present illness. Objective Vitals: reviewed Physical Exam: General: Alert and oriented no acute distress Head: Normocephalic atraumatic Eyes: Pupils equal round reactive to light, no scleral icterus Mouth: Mucous membranes moist, tongue is midline Neck: Supple, no JVD Cardiac: Regular rate and rhythm Respiratory: Normal work of breathing, no accessory muscle use Abdomen: Soft, nontender, nondistended, no rebound, no guarding Extremities: Warm and dry, the right groin sheath is hemostatic without hematoma. His bilateral palpable popliteal pulses. The bilateral feet are warm and dry with motor and sensation intact Neurologic: GCS 15, moving all extremities Psychiatric: Appropriate mood and affect Lab/Radiology/Diagnostic Review: I personally reviewed the patient's cardiac catheterization images as well as chest x-ray. Plan: Neuro: # Acute on chronic back pain -start Tylenol and oxycodone p.r.n. CV: Pravastatin change to atorvastatin by cardiology. Blood pressure is borderline, holding Coreg and lisinopril. Continue Integrilin infusion IABP 1:1 with good augmentation neurovascular exam is of the right lower extremity per policy, placement appeared appropriate on chest x-ray Continue heparin infusion Echo in AM Plan for CABG on Tuesday Will need rest of workup per CTS, vein mapping, carotid imaging, etc Pulmonary: Check BNP given pulmonary edema on CXR, hold off on diuresis given borderline BP's and allow IABP to unload, may need lasix if no improvement Wean nasal cannula for SPO2>92% GI: Diet: Consistent carb cardiac diet PUD PPx: Home PPI Bowel regimen: Pericolase Endo: Glycemic control - Start SSI, hold home oral hypoglycemics Renal S/p cystoscopy, observe for worsening bleeding IVF Osorio to gravity-DO NOT REMOVE, switch to bag with urometer Electrolyte abnormality Replace PRN Heme: Heparin drip for MT DVT PPX: heparin drip SCD's ID: Monitor fever curve No antibiotics for now ICU standards of care: Restraints: None Physical therapy/Activity: Bedrest with balloon pump in place Access: Intra-aortic balloon pump, peripheral IVs, Osorio Other: None Goals of care: Full code Community PM Wally Aguilar DO Section of Acute and Critical Care Surgery [facility] [employer] [facility] F FORESTER * Nalini Clayton MD - 05/01/2021 6:49 PM CST Cardiology Consult Chart reviewed, patient examined. Discussed with care team. See dictated report F FORESTER * Nalini Clayton MD - 05/01/2021 12:00 AM CST Mr. Alvarado is a 60-year-old male who is being seen for evaluation of acute anterior wall myocardial infarction. History of Present Illness Mr. Alvarado is a 60-year-old male who is a known patient of coronary artery disease, status post multiple stent placements in the LAD who underwent bladder surgery at [facility] yesterday. He was discharged in the morning today and while driving home developed retrosternal chest pain which he described as dull in character, moderate in severity, continuous, accompanied by sweating andshortness of breath. He went to the emergency department at [place] and from there was transferred to this institution for emergent cardiac catheterization. I evaluated the patient as soon as hearrived in the emergency department. At the time of my assessment, he was still complaining of moderate retrosternal chest pain. He denied any recent fever, cough, hemoptysis, vomiting, swelling overthe feet, headache, dizziness, or syncope. Review of Systems All systems reviewed. Pertinent positives are mentioned in history of illness. Past Medical History 1. Known patient of coronary artery disease. In August of 2006, he had a Taxus stent placement to the LAD and Taxus stent placed in the diagonal. In January of 2010 he had Olean stent placed in the LAD. The patient states that he has 2 layers of stents in the LAD. 2. Hypertension. 3. Hyperlipidemia. 4. Diabetes. 5. Peripheral vascular disease. 6. Obesity. Home Medications Include: 1. Aspirin. 2. Prasugrel. 3. Fenofibrate. 4. Coreg. 5. Lisinopril. 6. Jardiance. 7. Pravachol. 8. Protonix. 9. Insulin. Personal History Continues to be a smoker, smokes about a pack of cigarettes a day. Takes alcohol on social occasions. Allergies METOCLOPRAMIDE. Family History There is no family history of coronary artery disease, cancer, TIA, stroke, peripheral vascular disease. Physical Examination Constitutional: Middle-aged patient of average build lying propped up in bed. He is in distress from chest pain, but is alert, follows commands. He is neither dyspneic nor cyanosed. Eyes: Examination is normal. There is no pallor or icterus. Neck: Central trachea. No thyromegaly. JVP is not extending. ENT: Oral mucosa normal. Skin: Warm and moist. There are no rashes. Neuromuscular: Limited exam was normal. Vital Signs: Showed pulse of 78 per minute, blood pressure of 92/60, respiratory rate of 18 per minute and he was afebrile. There were no carotid bruits. Peripheral pulses are weakly palpable. Chest examination reveals diminished air entry bilaterally. There are a few fine crackles and scattered wheezes in bases. Cardiovascular: S1, S2 normal. There is S4 or rub. There is a pansystolic murmur 2/6 present. Abdomen: Nontender. No guarding or rigidity. There is no palpable organomegaly or free fluid and bowel sounds present. Neurologic: The patient is alert, follows commands. Lab Values Not available. ECG reveals acute anterior wall myocardial infarction. Impression 1. Chest pain, abnormal EKG consistent with acute anterior wall myocardial infarction. 2. Known coronary disease status post multiple stent placements in the LAD in 2006 and 2009 including double layers of stent in the mid segment. 3. Hypertension. 4. Diabetes. 5. Hyperlipidemia. 6. Obesity. 7. Tobacco use. 8. Peripheral vascular disease. 9. Vitamin D deficiency. Action Plan Patient presented to the emergency department at [place] with sudden onset of chest pain whiledriving home after having bladder surgery yesterday. His symptoms were accompanied by sweating and shortness of breath and on arrival in the emergency department he was noted to have evidence of acute anterior wall myocardial infarction. The patient was transferred to this institution for emergent cardiac catheterization. I evaluated the patient as soon as he arrived in the emergency department and he was still having moderate chest discomfort. I have discussed the significance of his EKG changes with the patient and have recommended that he have emergent cardiac catheterization done to define coronary anatomy and for possible percutaneous revascularization. Details of the procedure, risks have been explained to him. He understands and wishes to proceed. This procedure is being done on an emergent basis. Basic labs will be checked. His overall prognosis is guarded. Based on the results of his tests, further recommendations on his carewould be made. The patient's other medical problems including diabetes, peripheral vascular disease, obesity will be managed by the hospitalists. Importance of giving up smoking has been stressed to the patient andhe promises to do so. Job ID/VF Job ID: [id number] F FORESTER documented in this encounter Nursing Notes * Inna Sorto RN - 06/03/2021 3:22 PM CST Patient discharged home to self care. Post CABG discharge education done. Core measures completed. ESCROW CLERK Ellen Maynard from cardiology group notified of ARB missing from the discharge medications. She sayspatient to continue with carvedilol and no ARB at this time. F FORESTER * Sal Raya RN - 06/01/2021 10:12 AM CST Impression: Patient evaluated by SWAT RN due to increased risk for impaired skin integrity, Marko Score 18 . Contributing past medical history includes: DM, HTN, PCI. On evaluation skin is healthy appearing with no breakdown noted. Plan: Implementation of pressure injury prevention measures including; Q2 turns, waffle mattress, elevate the heels. Goal: Promote optimal skin hygiene & maintain skin integrity. SWAT RN to follow patient during hospitalization. For any questions or concerns please contact SWAT RN, Sal Raya F FORESTER * Varsha William RN - 05/31/2021 6:45 PM CST Patient came from ICU via stretcher. Alert and oriented times 4. Able to make needs known. No complaints at this time. Eating dinner at this time. Call light within reach. F FORESTER * Enrico Anthony RN - 05/25/2021 2:04 PM CST Impression: Patient evaluated by SWAT RN due to increase risk for impaired skin integrity. Marko Score: 18 Contributing history includes:CAD,MT,CAD. Plan: Continue pressure prevention orders- Q2 turns, waffle mattress, absorbant pads, and prevalon boots. Goal: pressure relief and moisture management. F FORESTER * Terra Spicer RN - 05/18/2021 12:27 PM CST 4 FR PICC line placed to PRIETO via the brachial vein, good blood return noted, lumen flushes freely as placement confirmed by successful 3CG System Signals. F FORESTER * Devonte Ward RN - 05/17/2021 3:24 AM CST Second SALESFORCE ADMINISTRATOR called on patient at this time due to deteriorating oxygen sats, tachypnia, and heavy use of accessory muscles to breath. See v/s. Lung sounds course throughout left lung lobe/diminished throughout right lung lobe. Patient on 15 L high flow, satting low 90s/ high 80s. Arrived at bedside for SALESFORCE ADMINISTRATOR...Racheal WALKER, Hari RN, charge nurse, ne RN and second 9th floor staff nurse. Dr. Lopes paged; orders received; see orders. Awaiting bed placement in CVU. SALESFORCE ADMINISTRATOR end 214 with patient on nonrebreather, awake and vss. Will follow. F FORESTER * Devonte Ward RN - 05/17/2021 2:45 AM CST Patient transferred to CVU bed 5 at this time. All patient personal belongings out of room with patient. Dr. Lopes arrived at patient bedside. This RN, Racheal WALKER and second 9th floor director of medical staff services transferred patient via bed. Prior patient transfer, report given to Mani POE, CVU nurse. Will follow. F FORESTER * Devonte Ward RN - 05/16/2021 10:40 PM CST SALESFORCE ADMINISTRATOR called on patient d/t low oxygen sats...83% on 10L HF; 83% on 12 L HF; 91% on 15 L HF. Patient placed on nonrebreater-sats at 97%. Hari RN, charge preparation technician, Daniela RN, Rapid Response team, Michelle, and ne POE in patient's room. DR. Lopes paged and notified of situation; orders received for one time of Lasix 40 mg ivp only. 2305: SALESFORCE ADMINISTRATOR complete; patient currently on 10 L HF, satting 91%. Will follow. F FORESTER F FORESTER * Devonte Ward RN - 05/10/2021 5:50 AM CST Patient resting in bed at this time; on 6l high flow nc; will follow. F FORESTER * Devonte Ward RN - 05/10/2021 5:48 AM CST This RN spoke to at this time; reported patient's syncopal episode; order received; willfollow. F FORESTER * Devonte Ward RN - 05/10/2021 5:35 AM CST This RN and pct into see patient at this time; patient sat on side of bed, stood up with assist x 2to standing bed scale for weight. Patient had syncopal episode while standing. This RN and pct lowered patient to floor, flat. Upon lying awake, patient awoke; see vital signs. Code Blue called from room when patient had syncopal episode. Upon patient lying down and patient awoke, code blue cancelled. SALESFORCE ADMINISTRATOR called, in lieu. Will follow. F FORESTER * Enrico Anthony RN - 05/02/2021 9:29 AM CST Impression: Patient evaluated by SWAT RN due to increase risk for impaired skin integrity. Marko Score:15 Contributing history includes:CAD, MT, and DM Plan: Continue pressure prevention orders- Q2 turns, waffle mattress, absorbant pads, and prevalon boots. Goal: Pt's skin will remain intact and free from pressure injuries. F FORESTER * Jessica Adams RN - 05/02/2021 12:55 AM CST Pt tested [facility] F FORESTER documented in this encounter Miscellaneous Notes * Plan of Care - Mahsa Parra RN - 06/03/2021 2:28 PM CST Goals: Clinical Goals for the Shift: Comfort, safety, possible discharge home to self care today Summary:Pt educated on Stemi and discharge follow up care post CABG. F FORESTER * Plan of Care - Inna Sorto RN - 06/03/2021 1:41 PM CST Patient discharged to selfcare with family by Dr Zelaya. IV removed and patient given discharge education. F FORESTER * Plan of Care - Katiuska Livingston MSW - 06/03/2021 11:12 AM CST 06/03/2021 11:12 AM (CT) Katiuska Livingston: Pt is medically stable. Home o2 Walk completed. Pt does notrequire O2 at the time of discharge. IMM reviewed with pt???s , Kadi ([phone]), via phone.Pt???s stated that she will provide transportation (picker feeder time between 2 PM -3 PM). SW will be available as needed. PARKER Lopez Rehab Aide Case Management 06/03/2021 11:12 AM F FORESTER * Plan of Care - Inna Sorto RN - 06/03/2021 10:18 AM CST Goals: Clinical Goals for the Shift: antibiotics, monitor for s/ of infection, reoccuring chest pain, paincontrol Summary: Problem: Health Behavior: Goal: Understanding of discharge needs will improve Outcome: Progressing Problem: Activity: Goal: Activity Intolerance will improve Outcome: Progressing Problem: Cardiac: Goal: Ability to achieve and maintain adequate cardiopulmonary perfusion will improve Outcome: Progressing Goal: Hemodynamic stability will improve Outcome: Progressing Goal: Will show no evidence of cardiac arrhythmias Outcome: Progressing Problem: Lack of Knowledge: Goal: Verbalization of understanding the information provided will improve Outcome: Progressing Problem: Coping: Goal: Ability to adjust to condition or change in health will improve Outcome: Progressing Goal: Ability to state activities that reduce stress will improve Outcome: Progressing Goal: Level of anxiety will decrease Outcome: Progressing Problem: Fluid Volume: Goal: Risk for excess fluid volume will decrease Outcome: Progressing Problem: Health Behavior: Goal: Identification of resources available to assist in meeting health care needs will improve Outcome: Progressing Goal: Compliance with treatment plan for underlying cause of condition will improve Outcome: Progressing Problem: Physical Regulation: Goal: Complications related to the disease process, condition or treatment will be avoided or minimized Outcome: Progressing Goal: Diagnostic test results will improve Outcome: Progressing Problem: Sensory: Goal: General experience of comfort will improve Outcome: Progressing Goal: Satisfaction with pain management regimen will improve Outcome: Progressing Problem: Activity: Goal: Mobility will improve Outcome: Progressing Problem: Lack of Knowledge: Goal: Understanding of ways to prevent future skin breakdown will improve Outcome: Progressing Goal: Ability to identify appropriate dietary choices will improve Outcome: Progressing Problem: Nutritional: Goal: Dietary intake will improve Outcome: Progressing Goal: Ability to maintain a balanced intake and output will improve Outcome: Progressing Problem: Skin Integrity: Goal: Risk for impaired skin integrity will decrease Outcome: Progressing Goal: Ability to demonstrate warm and dry skin will improve Outcome: Progressing Goal: Circulation will improve to fullest extent possible Outcome: Progressing Problem: Lack of Knowledge: Goal: Ability to state ways to decrease the risk of falls will improve Outcome: Progressing Problem: Safety: Goal: Will remain free from falls Outcome: Progressing Goal: Will remain free from injury from falls Outcome: Progressing Goal: Will remain free from falls and injury in home environment Outcome: Progressing Problem: Respiratory: Goal: Ability to maintain a clear airway will improve Outcome: Progressing Goal: Ability to maintain adequate ventilation will improve Outcome: Progressing Problem: Activity: Goal: Risk for activity intolerance will decrease Outcome: Progressing Problem: Bowel/Gastric: Goal: Gastrointestinal status for postoperative course will improve Outcome: Progressing Goal: Ability to maintain normal bowel function will be supported Outcome: Progressing Problem: Cardiac: Goal: Hemodynamic stability will improve Outcome: Progressing Goal: Ability to maintain an adequate cardiac output will improve Outcome: Progressing Goal: Will show no signs and symptoms of excessive bleeding Outcome: Progressing Problem: Lack of Knowledge: Goal: Knowledge of disease or condition will improve Outcome: Progressing Goal: Knowledge of the prescribed therapeutic regimen will improve Outcome: Progressing Problem: Coping: Goal: Ability to adjust to condition or change in health will improve Outcome: Progressing Problem: Health Behavior: Goal: Identification of resources available to assist in meeting health care needs will improve Outcome: Progressing Problem: Nutritional: Goal: Risk for body nutrition deficit will decrease Outcome: Progressing Problem: Physical Regulation: Goal: Diagnostic test results will improve Outcome: Progressing Problem: Respiratory: Goal: Levels of oxygenation will improve Outcome: Progressing Goal: Respiratory status will improve Outcome: Progressing Problem: Sensory: Goal: Pain level will decrease Outcome: Progressing Problem: Skin Integrity: Goal: Risk for impaired skin integrity will decrease Outcome: Progressing Problem: Tissue Perfusion: Goal: Risk factors for ineffective tissue perfusion will decrease Outcome: Progressing Goal: Risk of venous thrombosis will decrease Outcome: Progressing Problem: Urinary Elimination: Goal: Ability to achieve and maintain adequate urine output will improve Outcome: Progressing Goal: Ability to achieve and maintain adequate renal perfusion and functioning will improve Outcome: Progressing F FORESTER * Plan of Neelima - Jeana Ocasio RN - 06/03/2021 8:46 AM CST Spoke to Dr. Lara regarding potential discharge and home oxygen evaluation. Ok to order home o2 evaluation, order placed. Jeana Ocasio RN Case Manager [phone] F FORESTER * Plan of Neelima - Azucena Hsu RN - 06/03/2021 2:21 AM CST Goals: Clinical Goals for the Shift: antibiotics, monitor for s/ of infection, reoccuring chest pain, paincontrol Summary: F FORESTER * Plan of Neelima - Regina Regalado RN - 06/02/2021 5:20 PM CST Goals: Summary: Problem: Health Behavior: Goal: Understanding of discharge needs will improve Outcome: Progressing Problem: Activity: Goal: Activity Intolerance will improve Outcome: Progressing Problem: Cardiac: Goal: Ability to achieve and maintain adequate cardiopulmonary perfusion will improve Outcome: Progressing Goal: Hemodynamic stability will improve Outcome: Progressing Goal: Will show no evidence of cardiac arrhythmias Outcome: Progressing Problem: Lack of Knowledge: Goal: Verbalization of understanding the information provided will improve Outcome: Progressing Problem: Coping: Goal: Ability to adjust to condition or change in health will improve Outcome: Progressing Goal: Ability to state activities that reduce stress will improve Outcome: Progressing Goal: Level of anxiety will decrease Outcome: Progressing Problem: Fluid Volume: Goal: Risk for excess fluid volume will decrease Outcome: Progressing Problem: Health Behavior: Goal: Identification of resources available to assist in meeting health care needs will improve Outcome: Progressing Goal: Compliance with treatment plan for underlying cause of condition will improve Outcome: Progressing Problem: Physical Regulation: Goal: Complications related to the disease process, condition or treatment will be avoided or minimized Outcome: Progressing Goal: Diagnostic test results will improve Outcome: Progressing Problem: Sensory: Goal: General experience of comfort will improve Outcome: Progressing Goal: Satisfaction with pain management regimen will improve Outcome: Progressing Problem: Activity: Goal: Mobility will improve Outcome: Progressing Problem: Lack of Knowledge: Goal: Understanding of ways to prevent future skin breakdown will improve Outcome: Progressing Goal: Ability to identify appropriate dietary choices will improve Outcome: Progressing Problem: Nutritional: Goal: Dietary intake will improve Outcome: Progressing Goal: Ability to maintain a balanced intake and output will improve Outcome: Progressing Problem: Skin Integrity: Goal: Risk for impaired skin integrity will decrease Outcome: Progressing Goal: Ability to demonstrate warm and dry skin will improve Outcome: Progressing Goal: Circulation will improve to fullest extent possible Outcome: Progressing Problem: Lack of Knowledge: Goal: Ability to state ways to decrease the risk of falls will improve Outcome: Progressing Problem: Safety: Goal: Will remain free from falls Outcome: Progressing Goal: Will remain free from injury from falls Outcome: Progressing Goal: Will remain free from falls and injury in home environment Outcome: Progressing Problem: Respiratory: Goal: Ability to maintain a clear airway will improve Outcome: Progressing Goal: Ability to maintain adequate ventilation will improve Outcome: Progressing Problem: Activity: Goal: Risk for activity intolerance will decrease Outcome: Progressing Problem: Bowel/Gastric: Goal: Gastrointestinal status for postoperative course will improve Outcome: Progressing Goal: Ability to maintain normal bowel function will be supported Outcome: Progressing Problem: Cardiac: Goal: Hemodynamic stability will improve Outcome: Progressing Goal: Ability to maintain an adequate cardiac output will improve Outcome: Progressing Goal: Will show no signs and symptoms of excessive bleeding Outcome: Progressing Problem: Lack of Knowledge: Goal: Knowledge of disease or condition will improve Outcome: Progressing Goal: Knowledge of the prescribed therapeutic regimen will improve Outcome: Progressing Problem: Coping: Goal: Ability to adjust to condition or change in health will improve Outcome: Progressing Problem: Health Behavior: Goal: Identification of resources available to assist in meeting health care needs will improve Outcome: Progressing Problem: Nutritional: Goal: Risk for body nutrition deficit will decrease Outcome: Progressing Problem: Physical Regulation: Goal: Diagnostic test results will improve Outcome: Progressing Problem: Respiratory: Goal: Levels of oxygenation will improve Outcome: Progressing Goal: Respiratory status will improve Outcome: Progressing Problem: Sensory: Goal: Pain level will decrease Outcome: Progressing Problem: Skin Integrity: Goal: Risk for impaired skin integrity will decrease Outcome: Progressing Problem: Tissue Perfusion: Goal: Risk factors for ineffective tissue perfusion will decrease Outcome: Progressing Goal: Risk of venous thrombosis will decrease Outcome: Progressing Problem: Urinary Elimination: Goal: Ability to achieve and maintain adequate urine output will improve Outcome: Progressing Goal: Ability to achieve and maintain adequate renal perfusion and functioning will improve Outcome: Progressing F FORESTER * Provider Query - Anibal Lara MD - 06/02/2021 4:25 PM CST Specify the etiology of the patient???s symptoms. SIRS or Sepsis Syndrome does not equate to Sepsis. 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 Post CABG cardiogenic shock, hypotensive again Acute resp failure - self ext 05/05/21 -Lung infiltrates - pulm vascular congestion versus pneumonia --COVID19 (+) 05/19 --05/25 Pulmonary PN: COVID 19, diagnosed 05/19/21, resp status began worsening 05/15/21 Possible bacterial pneumonia, treated --05/26 Critical Care PN: Initially presumed Covid to be worsening but likely secondary to superinfection 05/26/2021 06:23 05/27/2021 06:40 05/28/2021 02:47 05/29/2021 05:28 05/30/2021 04:05 05/31/2021 05:39 06/01/2021 11:32 06/02/2021 05:37 WBC 14.0 (H) 13.5 (H) 12.1 (H) 16.1 (H) 14.4 (H) 18.4 (H) 16.3 (H) 15.4 (H) ?? 05/17 BP: 87/50, 81/56, 74/42, 82/61, 87/53, 80/51, 64/34, 80/59, 78/51 05/26 HR: 101, 91, 99, 93 RR: 22, 24, 24, 23, 24, 30, 29 05/27 HR: 94, 94 RR: 41, 28, 22, 28, 27, 27 05/29 HR: 96, 92, 112, 116, 119, 94, 93, 99, 91, 96 RR: 23, 25, 23, 27, 24, 22, 22, 34 05/30 BP 85/54, 86/50, 88/51 HR: 91, 97 RR: 22, 24, 21 TX: 05/17 thru 05/19 levophed cefepime, ceftriaxone, vanc Adult SIRS/Sepsis Screening Criteria SIRS Temp >38.3 C (100.9 F) or <36 (96.8 F) HR (pulse) >90 Respiratory rate >20 WBC > 12,000 or <4,000 or >10% bands Sepsis 2 of 4 SIRS criteria present AND suspected/confirmed source of infection Severe Sepsis Sepsis plus at least one sign of NEW hypoperfusion or organ dysfunction not limited to but may include: - Lactate >2 mmol/L - INR > 1.5 or aPTT >60 seconds - Platelet count <100,000 ??L?1 - Bilirubin >2 mg/dL - Creatinine >2 mg/dL (if no documentation of renal failure) - Urine output <0.5 mL/kg/hr x 2 hours - Acute respiratory failure with new need for mechanical ventilation or noninvasive ventilation - Altered mental status or Encephalopathy (new or acutely worsened due to infection) - One or more reading(s) of hypotension prior to 30ml/kg fluid bolus (SBP< 90 mmHG or MAP< 65, or SBP decrease of > 40 mmHG from baseline) Septic Shock Severe sepsis patients with: - Two or more readings of hypotension (SBP <90 or MAP< 65) after 30ml/kg fluid bolus, often requiring vasopressors or - Lactate >=4 Use of terms such as likely, suspected, possible, or probable (associated with a specific diagnosisthat is being evaluated, monitored, or treated as if it exists) are acceptable and can be coded in the inpatient setting when documented at the time of discharge. This documentation will become part of the patient???s medical record. Thank you, Rosy Leung RN, BSN Clinical Airplane Pilot Chief [employer] Teams: Rosy Leung [employer]: Rosy Leung [facility] NAME: Rosy Rosenberg El Email: [email or web address] F FORESTER * Plan of Care - Katiuska Livingston MSW - 06/02/2021 3:08 PM CST 06/02/2021 3:07 PM (CT) Katiuska Livingston: Due to COVID isolation, SW contacted pt???s room to discuss his DC plan. Pt stated that he will return home at the time of discharge and denied LTACH, SNF, inpatient rehab, and home health. SW followed up with pt???s , Geno ([phone]), via phone. Pt???s stated that we want him to come home. I don???t want rehab or acute care for him. SW offered home health. Pt???s stated that she does not want home health because she is not comfortable with strangers coming to her house. SW inquires with PT???s about pt needs. Pt???s stated that we have 3 people here who can provide him with 24-hour??supervision. When asked about transportation, pt???s stated that someone will come and pick him up. Both pt and his deniedLTAC, inpatient rehab, SNF, and home health. SW will follow. PARKER Lopez Rehab Aide Case Management 06/02/2021 3:08 PM F FORESTER * Plan of Care - Katiuska Livingston MSW - 06/02/2021 12:31 PM CST 06/02/2021 12:31 PM (CT) Katiuska Livingston: ABRAHAM followed up with [facility] Liaison Chiara ([phone]). Chiara stated that she is waiting on insurance authorization. Awaiting insurance authorizationfor LTAC. SW will follow. [facility] A[facility] Case Management 06/02/2021 12:31 PM F FORESTER * Plan of Care - Ellen Drummond RN - 06/02/2021 2:39 AM CST Goals: Clinical Goals for the Shift: stable vital signs, monitor o2 sat ans wean o2 as needed , monitor blood glucose Summary: Problem: Health Behavior: Goal: Understanding of discharge needs will improve Outcome: Progressing Problem: Activity: Goal: Activity Intolerance will improve Outcome: Progressing F FORESTER * Plan of Care - Suzie Meza RN - 06/01/2021 2:08 PM CST Problem: Activity: Goal: Activity Intolerance will improve Outcome: Progressing Problem: Cardiac: Goal: Ability to achieve and maintain adequate cardiopulmonary perfusion will improve Outcome: Progressing Problem: Activity: Goal: Mobility will improve Outcome: Progressing Problem: Skin Integrity: Goal: Risk for impaired skin integrity will decrease Outcome: Progressing Problem: Respiratory: Goal: Ability to maintain adequate ventilation will improve Outcome: Progressing F FORESTER * Plan of Care - Ellen Drummond RN - 06/01/2021 4:58 AM CST Goals: Clinical Goals for the Shift: stable vital signs, monitor o2 sat ans wean o2 as needed , monitor blood glucose Summary: Problem: Health Behavior: Goal: Understanding of discharge needs will improve Outcome: Not Progressing Problem: Activity: Goal: Activity Intolerance will improve Outcome: Not Progressing Problem: Lack of Knowledge: Goal: Verbalization of understanding the information provided will improve Outcome: Not Progressing F FORESTER * Significant Event - Silviano Huddleston NP - 05/31/2021 12:59 PM STAFF FORESTER ICU to Floor Transfer Plan to move patient to the 8th floor. Sign out given to [facility] hospitalist. Please see most recent daily progress note for detailed HPI, hospital course, and significant events. Do not hesitateto reach out via phone if any further questions/concerns. Silviano Huddleston NP Phone number to be reached at: [phone] ([place] 1) Cosigned by Frank Dugan MD at 05/31/2021 2:14 PM STAFF FORESTER F FORESTER F FORESTER * Plan of Care - Charan Salas RN - 05/31/2021 5:43 AM CST Goals: Clinical Goals for the Shift: stable vs, wean o2 Summary: Pt had intermittent desats overnight, O2 sats high 80s, O2 increased to 4L NC. No other acute events overnight. F FORESTER * Plan of Care - Marcel Kaur RN - 05/29/2021 6:31 PM CST Problem: Health Behavior: Goal: Understanding of discharge needs will improve Outcome: Progressing Problem: Activity: Goal: Activity Intolerance will improve Outcome: Progressing Problem: Cardiac: Goal: Ability to achieve and maintain adequate cardiopulmonary perfusion will improve Outcome: Progressing Goal: Hemodynamic stability will improve Outcome: Progressing Goal: Will show no evidence of cardiac arrhythmias Outcome: Progressing Problem: Lack of Knowledge: Goal: Verbalization of understanding the information provided will improve Outcome: Progressing Problem: Coping: Goal: Ability to adjust to condition or change in health will improve Outcome: Progressing Goal: Ability to state activities that reduce stress will improve Outcome: Progressing Goal: Level of anxiety will decrease Outcome: Progressing Problem: Fluid Volume: Goal: Risk for excess fluid volume will decrease Outcome: Progressing Problem: Health Behavior: Goal: Identification of resources available to assist in meeting health care needs will improve Outcome: Progressing Goal: Compliance with treatment plan for underlying cause of condition will improve Outcome: Progressing Problem: Physical Regulation: Goal: Complications related to the disease process, condition or treatment will be avoided or minimized Outcome: Progressing Goal: Diagnostic test results will improve Outcome: Progressing Problem: Sensory: Goal: General experience of comfort will improve Outcome: Progressing Goal: Satisfaction with pain management regimen will improve Outcome: Progressing Problem: Activity: Goal: Mobility will improve Outcome: Progressing Problem: Lack of Knowledge: Goal: Understanding of ways to prevent future skin breakdown will improve Outcome: Progressing Goal: Ability to identify appropriate dietary choices will improve Outcome: Progressing Problem: Nutritional: Goal: Dietary intake will improve Outcome: Progressing Goal: Ability to maintain a balanced intake and output will improve Outcome: Progressing Problem: Skin Integrity: Goal: Risk for impaired skin integrity will decrease Outcome: Progressing Goal: Ability to demonstrate warm and dry skin will improve Outcome: Progressing Goal: Circulation will improve to fullest extent possible Outcome: Progressing Problem: Lack of Knowledge: Goal: Ability to state ways to decrease the risk of falls will improve Outcome: Progressing Problem: Safety: Goal: Will remain free from falls Outcome: Progressing Goal: Will remain free from injury from falls Outcome: Progressing Goal: Will remain free from falls and injury in home environment Outcome: Progressing Problem: Respiratory: Goal: Ability to maintain a clear airway will improve Outcome: Progressing Goal: Ability to maintain adequate ventilation will improve Outcome: Progressing Problem: Activity: Goal: Risk for activity intolerance will decrease Outcome: Progressing Problem: Bowel/Gastric: Goal: Gastrointestinal status for postoperative course will improve Outcome: Progressing Goal: Ability to maintain normal bowel function will be supported Outcome: Progressing Problem: Cardiac: Goal: Hemodynamic stability will improve Outcome: Progressing Goal: Ability to maintain an adequate cardiac output will improve Outcome: Progressing Goal: Will show no signs and symptoms of excessive bleeding Outcome: Progressing Problem: Lack of Knowledge: Goal: Knowledge of disease or condition will improve Outcome: Progressing Goal: Knowledge of the prescribed therapeutic regimen will improve Outcome: Progressing Problem: Coping: Goal: Ability to adjust to condition or change in health will improve Outcome: Progressing Problem: Health Behavior: Goal: Identification of resources available to assist in meeting health care needs will improve Outcome: Progressing Problem: Nutritional: Goal: Risk for body nutrition deficit will decrease Outcome: Progressing Problem: Physical Regulation: Goal: Diagnostic test results will improve Outcome: Progressing Problem: Respiratory: Goal: Levels of oxygenation will improve Outcome: Progressing Goal: Respiratory status will improve Outcome: Progressing Problem: Sensory: Goal: Pain level will decrease Outcome: Progressing Problem: Skin Integrity: Goal: Risk for impaired skin integrity will decrease Outcome: Progressing Problem: Tissue Perfusion: Goal: Risk factors for ineffective tissue perfusion will decrease Outcome: Progressing Goal: Risk of venous thrombosis will decrease Outcome: Progressing Problem: Urinary Elimination: Goal: Ability to achieve and maintain adequate urine output will improve Outcome: Progressing Goal: Ability to achieve and maintain adequate renal perfusion and functioning will improve Outcome: Progressing Goals: Clinical Goals for the Shift: Patient will remain hemodynamically stable. Summary: VSS, Weaned 02 as tolerated, worked with PT. No significant changes. F FORESTER * Plan of Care - Deepak Bills RN - 05/28/2021 3:25 PM CST Problem: Health Behavior: Goal: Understanding of discharge needs will improve Outcome: Progressing Problem: Activity: Goal: Activity Intolerance will improve Outcome: Progressing Problem: Cardiac: Goal: Ability to achieve and maintain adequate cardiopulmonary perfusion will improve Outcome: Progressing Goal: Hemodynamic stability will improve Outcome: Progressing Goal: Will show no evidence of cardiac arrhythmias Outcome: Progressing Problem: Lack of Knowledge: Goal: Verbalization of understanding the information provided will improve Outcome: Progressing Problem: Coping: Goal: Ability to adjust to condition or change in health will improve Outcome: Progressing Goal: Ability to state activities that reduce stress will improve Outcome: Progressing Goal: Level of anxiety will decrease Outcome: Progressing Problem: Fluid Volume: Goal: Risk for excess fluid volume will decrease Outcome: Progressing Problem: Health Behavior: Goal: Identification of resources available to assist in meeting health care needs will improve Outcome: Progressing Goal: Compliance with treatment plan for underlying cause of condition will improve Outcome: Progressing Problem: Physical Regulation: Goal: Complications related to the disease process, condition or treatment will be avoided or minimized Outcome: Progressing Goal: Diagnostic test results will improve Outcome: Progressing Problem: Sensory: Goal: General experience of comfort will improve Outcome: Progressing Goal: Satisfaction with pain management regimen will improve Outcome: Progressing Problem: Activity: Goal: Mobility will improve Outcome: Progressing Problem: Lack of Knowledge: Goal: Understanding of ways to prevent future skin breakdown will improve Outcome: Progressing Goal: Ability to identify appropriate dietary choices will improve Outcome: Progressing Problem: Nutritional: Goal: Dietary intake will improve Outcome: Progressing Goal: Ability to maintain a balanced intake and output will improve Outcome: Progressing Problem: Skin Integrity: Goal: Risk for impaired skin integrity will decrease Outcome: Progressing Goal: Ability to demonstrate warm and dry skin will improve Outcome: Progressing Goal: Circulation will improve to fullest extent possible Outcome: Progressing Problem: Lack of Knowledge: Goal: Ability to state ways to decrease the risk of falls will improve Outcome: Progressing Problem: Safety: Goal: Will remain free from falls Outcome: Progressing Goal: Will remain free from injury from falls Outcome: Progressing Goal: Will remain free from falls and injury in home environment Outcome: Progressing Problem: Respiratory: Goal: Ability to maintain a clear airway will improve Outcome: Progressing Goal: Ability to maintain adequate ventilation will improve Outcome: Progressing Problem: Activity: Goal: Risk for activity intolerance will decrease Outcome: Progressing Problem: Bowel/Gastric: Goal: Gastrointestinal status for postoperative course will improve Outcome: Progressing Goal: Ability to maintain normal bowel function will be supported Outcome: Progressing Problem: Cardiac: Goal: Hemodynamic stability will improve Outcome: Progressing Goal: Ability to maintain an adequate cardiac output will improve Outcome: Progressing Goal: Will show no signs and symptoms of excessive bleeding Outcome: Progressing Problem: Lack of Knowledge: Goal: Knowledge of disease or condition will improve Outcome: Progressing Goal: Knowledge of the prescribed therapeutic regimen will improve Outcome: Progressing Problem: Coping: Goal: Ability to adjust to condition or change in health will improve Outcome: Progressing Problem: Health Behavior: Goal: Identification of resources available to assist in meeting health care needs will improve Outcome: Progressing Problem: Nutritional: Goal: Risk for body nutrition deficit will decrease Outcome: Progressing Problem: Physical Regulation: Goal: Diagnostic test results will improve Outcome: Progressing Problem: Respiratory: Goal: Levels of oxygenation will improve Outcome: Progressing Goal: Respiratory status will improve Outcome: Progressing Problem: Sensory: Goal: Pain level will decrease Outcome: Progressing Problem: Skin Integrity: Goal: Risk for impaired skin integrity will decrease Outcome: Progressing Problem: Tissue Perfusion: Goal: Risk factors for ineffective tissue perfusion will decrease Outcome: Progressing Goal: Risk of venous thrombosis will decrease Outcome: Progressing Problem: Urinary Elimination: Goal: Ability to achieve and maintain adequate urine output will improve Outcome: Progressing Goal: Ability to achieve and maintain adequate renal perfusion and functioning will improve Outcome: Progressing Goals: Clinical Goals for the Shift: stable VSS, improve oxygenation, wean oxygen, comfort and safety. F FORESTER * Plan of Care - Miranda Garza RN - 05/28/2021 12:01 PM STAFF FORESTER Spoke with spouse Geno about LTACH and what it offers. We discussed locations and which ones were available in the [facility] area. She was agreeable for the closer location of [facility] [place]. Will speak with patient vis phone after lunch. Remains on isolation for Covid at this time. Chiara at [facility] notified and will begin insurance authorization process. Miranda Garza RN BSN [employer] [phone] F FORESTER * Plan of Care - Kyree Bower RN - 05/27/2021 2:56 AM CST Goals: Clinical Goals for the Shift: stable VSS, improve oxygenation, wean oxygen, comfort and safety. Summary: Problem: Activity: Goal: Activity Intolerance will improve Outcome: Progressing Problem: Cardiac: Goal: Ability to achieve and maintain adequate cardiopulmonary perfusion will improve Outcome: Progressing Goal: Hemodynamic stability will improve Outcome: Progressing Goal: Will show no evidence of cardiac arrhythmias Outcome: Progressing Problem: Coping: Goal: Level of anxiety will decrease Outcome: Progressing Problem: Fluid Volume: Goal: Risk for excess fluid volume will decrease Outcome: Progressing Problem: Sensory: Goal: General experience of comfort will improve Outcome: Progressing Goal: Satisfaction with pain management regimen will improve Outcome: Progressing Problem: Activity: Goal: Mobility will improve Outcome: Progressing Problem: Lack of Knowledge: Goal: Understanding of ways to prevent future skin breakdown will improve Outcome: Progressing Goal: Ability to identify appropriate dietary choices will improve Outcome: Progressing Problem: Nutritional: Goal: Dietary intake will improve Outcome: Progressing Goal: Ability to maintain a balanced intake and output will improve Outcome: Progressing Problem: Skin Integrity: Goal: Risk for impaired skin integrity will decrease Outcome: Progressing Goal: Ability to demonstrate warm and dry skin will improve Outcome: Progressing Goal: Circulation will improve to fullest extent possible Outcome: Progressing Problem: Safety: Goal: Will remain free from falls Outcome: Progressing Goal: Will remain free from injury from falls Outcome: Progressing Goal: Will remain free from falls and injury in home environment Outcome: Progressing Problem: Bowel/Gastric: Goal: Gastrointestinal status for postoperative course will improve Outcome: Progressing Goal: Ability to maintain normal bowel function will be supported Outcome: Progressing Problem: Cardiac: Goal: Hemodynamic stability will improve Outcome: Progressing Goal: Ability to maintain an adequate cardiac output will improve Outcome: Progressing Goal: Will show no signs and symptoms of excessive bleeding Outcome: Progressing Problem: Lack of Knowledge: Goal: Knowledge of disease or condition will improve Outcome: Progressing Goal: Knowledge of the prescribed therapeutic regimen will improve Outcome: Progressing Problem: Coping: Goal: Ability to adjust to condition or change in health will improve Outcome: Progressing Problem: Health Behavior: Goal: Identification of resources available to assist in meeting health care needs will improve Outcome: Progressing Problem: Nutritional: Goal: Risk for body nutrition deficit will decrease Outcome: Progressing Problem: Physical Regulation: Goal: Diagnostic test results will improve Outcome: Progressing Problem: Respiratory: Goal: Levels of oxygenation will improve Outcome: Progressing Goal: Respiratory status will improve Outcome: Progressing Problem: Sensory: Goal: Pain level will decrease Outcome: Progressing Problem: Skin Integrity: Goal: Risk for impaired skin integrity will decrease Outcome: Progressing Problem: Tissue Perfusion: Goal: Risk factors for ineffective tissue perfusion will decrease Outcome: Progressing Goal: Risk of venous thrombosis will decrease Outcome: Progressing Problem: Urinary Elimination: Goal: Ability to achieve and maintain adequate urine output will improve Outcome: Progressing Goal: Ability to achieve and maintain adequate renal perfusion and functioning will improve Outcome: Progressing Problem: Health Behavior: Goal: Understanding of discharge needs will improve Outcome: Not Progressing Problem: Lack of Knowledge: Goal: Verbalization of understanding the information provided will improve Outcome: Not Progressing Problem: Coping: Goal: Ability to adjust to condition or change in health will improve Outcome: Not Progressing Goal: Ability to state activities that reduce stress will improve Outcome: Not Progressing Problem: Health Behavior: Goal: Identification of resources available to assist in meeting health care needs will improve Outcome: Not Progressing Goal: Compliance with treatment plan for underlying cause of condition will improve Outcome: Not Progressing Problem: Physical Regulation: Goal: Complications related to the disease process, condition or treatment will be avoided or minimized Outcome: Not Progressing Problem: Lack of Knowledge: Goal: Ability to state ways to decrease the risk of falls will improve Outcome: Not Progressing Problem: Respiratory: Goal: Ability to maintain a clear airway will improve Outcome: Not Progressing Goal: Ability to maintain adequate ventilation will improve Outcome: Not Progressing Problem: Activity: Goal: Risk for activity intolerance will decrease Outcome: Not Progressing F FORESTER * Plan of Care - Kyree Bower RN - 05/25/2021 2:45 AM CST Goals: Clinical Goals for the Shift: stable VSS, improve oxygenation, wean oxygen, comfort and safety. Summary: Pt remains on optiflow. Pt needs frequent prompts to keep oxygen on. No c/o pain noted. Kyree Bower RN Problem: Cardiac: Goal: Ability to achieve and maintain adequate cardiopulmonary perfusion will improve Outcome: Progressing Goal: Hemodynamic stability will improve Outcome: Progressing Goal: Will show no evidence of cardiac arrhythmias Outcome: Progressing Problem: Lack of Knowledge: Goal: Verbalization of understanding the information provided will improve Outcome: Progressing Problem: Coping: Goal: Ability to adjust to condition or change in health will improve Outcome: Progressing Goal: Ability to state activities that reduce stress will improve Outcome: Progressing Goal: Level of anxiety will decrease Outcome: Progressing Problem: Fluid Volume: Goal: Risk for excess fluid volume will decrease Outcome: Progressing Problem: Health Behavior: Goal: Identification of resources available to assist in meeting health care needs will improve Outcome: Progressing Goal: Compliance with treatment plan for underlying cause of condition will improve Outcome: Progressing Problem: Physical Regulation: Goal: Complications related to the disease process, condition or treatment will be avoided or minimized Outcome: Progressing Goal: Diagnostic test results will improve Outcome: Progressing Problem: Sensory: Goal: General experience of comfort will improve Outcome: Progressing Goal: Satisfaction with pain management regimen will improve Outcome: Progressing Problem: Activity: Goal: Mobility will improve Outcome: Progressing Problem: Lack of Knowledge: Goal: Ability to identify appropriate dietary choices will improve Outcome: Progressing Problem: Nutritional: Goal: Dietary intake will improve Outcome: Progressing Goal: Ability to maintain a balanced intake and output will improve Outcome: Progressing Problem: Skin Integrity: Goal: Ability to demonstrate warm and dry skin will improve Outcome: Progressing Goal: Circulation will improve to fullest extent possible Outcome: Progressing Problem: Lack of Knowledge: Goal: Ability to state ways to decrease the risk of falls will improve Outcome: Progressing Problem: Safety: Goal: Will remain free from falls Outcome: Progressing Goal: Will remain free from injury from falls Outcome: Progressing Goal: Will remain free from falls and injury in home environment Outcome: Progressing Problem: Respiratory: Goal: Ability to maintain a clear airway will improve Outcome: Progressing Goal: Ability to maintain adequate ventilation will improve Outcome: Progressing Problem: Bowel/Gastric: Goal: Gastrointestinal status for postoperative course will improve Outcome: Progressing Goal: Ability to maintain normal bowel function will be supported Outcome: Progressing Problem: Cardiac: Goal: Hemodynamic stability will improve Outcome: Progressing Goal: Ability to maintain an adequate cardiac output will improve Outcome: Progressing Goal: Will show no signs and symptoms of excessive bleeding Outcome: Progressing Problem: Lack of Knowledge: Goal: Knowledge of disease or condition will improve Outcome: Progressing Goal: Knowledge of the prescribed therapeutic regimen will improve Outcome: Progressing Problem: Coping: Goal: Ability to adjust to condition or change in health will improve Outcome: Progressing Problem: Health Behavior: Goal: Identification of resources available to assist in meeting health care needs will improve Outcome: Progressing Problem: Nutritional: Goal: Risk for body nutrition deficit will decrease Outcome: Progressing Problem: Physical Regulation: Goal: Postoperative complications will be avoided or minimized Outcome: Progressing Goal: Diagnostic test results will improve Outcome: Progressing Problem: Sensory: Goal: Pain level will decrease Outcome: Progressing Problem: Skin Integrity: Goal: Risk for impaired skin integrity will decrease Outcome: Progressing Problem: Tissue Perfusion: Goal: Risk factors for ineffective tissue perfusion will decrease Outcome: Progressing Goal: Risk of venous thrombosis will decrease Outcome: Progressing Problem: Urinary Elimination: Goal: Ability to achieve and maintain adequate urine output will improve Outcome: Progressing Goal: Ability to achieve and maintain adequate renal perfusion and functioning will improve Outcome: Progressing Problem: Health Behavior: Goal: Understanding of discharge needs will improve Outcome: Not Progressing Problem: Activity: Goal: Activity Intolerance will improve Outcome: Not Progressing Problem: Lack of Knowledge: Goal: Understanding of ways to prevent future skin breakdown will improve Outcome: Not Progressing Problem: Skin Integrity: Goal: Risk for impaired skin integrity will decrease Outcome: Not Progressing Problem: Activity: Goal: Risk for activity intolerance will decrease Outcome: Not Progressing Problem: Respiratory: Goal: Levels of oxygenation will improve Outcome: Not Progressing Goal: Respiratory status will improve Outcome: Not Progressing F FORESTER * Plan of Care - Paresh Ross RN - 05/24/2021 6:31 PM STAFF FORESTER Goals: Clinical Goals for the Shift: VSS, titrate O2 if applicable, Comfort, Safety Summary: O2 requirements remain the same, educated on Incentive spirometry, possible move to lesseracuity if O2 requiremen Problem: Health Behavior: Goal: Understanding of discharge needs will improve Outcome: Progressing Problem: Activity: Goal: Activity Intolerance will improve Outcome: Progressing Problem: Cardiac: Goal: Ability to achieve and maintain adequate cardiopulmonary perfusion will improve Outcome: Progressing Goal: Hemodynamic stability will improve Outcome: Progressing Goal: Will show no evidence of cardiac arrhythmias Outcome: Progressing Problem: Lack of Knowledge: Goal: Verbalization of understanding the information provided will improve Outcome: Progressing Problem: Coping: Goal: Ability to adjust to condition or change in health will improve Outcome: Progressing Goal: Ability to state activities that reduce stress will improve Outcome: Progressing Goal: Level of anxiety will decrease Outcome: Progressing Problem: Fluid Volume: Goal: Risk for excess fluid volume will decrease Outcome: Progressing Problem: Health Behavior: Goal: Identification of resources available to assist in meeting health care needs will improve Outcome: Progressing Goal: Compliance with treatment plan for underlying cause of condition will improve Outcome: Progressing Problem: Physical Regulation: Goal: Complications related to the disease process, condition or treatment will be avoided or minimized Outcome: Progressing Goal: Diagnostic test results will improve Outcome: Progressing Problem: Sensory: Goal: General experience of comfort will improve Outcome: Progressing Goal: Satisfaction with pain management regimen will improve Outcome: Progressing Problem: Activity: Goal: Mobility will improve Outcome: Progressing Problem: Lack of Knowledge: Goal: Understanding of ways to prevent future skin breakdown will improve Outcome: Progressing Goal: Ability to identify appropriate dietary choices will improve Outcome: Progressing Problem: Nutritional: Goal: Dietary intake will improve Outcome: Progressing Goal: Ability to maintain a balanced intake and output will improve Outcome: Progressing Problem: Skin Integrity: Goal: Risk for impaired skin integrity will decrease Outcome: Progressing Goal: Ability to demonstrate warm and dry skin will improve Outcome: Progressing Goal: Circulation will improve to fullest extent possible Outcome: Progressing Problem: Lack of Knowledge: Goal: Ability to state ways to decrease the risk of falls will improve Outcome: Progressing Problem: Safety: Goal: Will remain free from falls Outcome: Progressing Goal: Will remain free from injury from falls Outcome: Progressing Goal: Will remain free from falls and injury in home environment Outcome: Progressing Problem: Respiratory: Goal: Ability to maintain a clear airway will improve Outcome: Progressing Goal: Ability to maintain adequate ventilation will improve Outcome: Progressing Problem: Activity: Goal: Risk for activity intolerance will decrease Outcome: Progressing Problem: Bowel/Gastric: Goal: Gastrointestinal status for postoperative course will improve Outcome: Progressing Goal: Ability to maintain normal bowel function will be supported Outcome: Progressing Problem: Cardiac: Goal: Hemodynamic stability will improve Outcome: Progressing Goal: Ability to maintain an adequate cardiac output will improve Outcome: Progressing Goal: Will show no signs and symptoms of excessive bleeding Outcome: Progressing Problem: Lack of Knowledge: Goal: Ability to demonstrate proper wound care will improve Outcome: Progressing Goal: Knowledge of disease or condition will improve Outcome: Progressing Goal: Knowledge of the prescribed therapeutic regimen will improve Outcome: Progressing Problem: Coping: Goal: Ability to adjust to condition or change in health will improve Outcome: Progressing Problem: Health Behavior: Goal: Identification of resources available to assist in meeting health care needs will improve Outcome: Progressing Problem: Nutritional: Goal: Risk for body nutrition deficit will decrease Outcome: Progressing Problem: Physical Regulation: Goal: Postoperative complications will be avoided or minimized Outcome: Progressing Goal: Diagnostic test results will improve Outcome: Progressing Problem: Respiratory: Goal: Levels of oxygenation will improve Outcome: Progressing Goal: Respiratory status will improve Outcome: Progressing Goal: Ability to tolerate decreased levels of ventilator support will improve Outcome: Progressing Problem: Sensory: Goal: Pain level will decrease Outcome: Progressing Problem: Skin Integrity: Goal: Demonstration of wound healing without infection will improve Outcome: Progressing Goal: Risk for impaired skin integrity will decrease Outcome: Progressing Problem: Tissue Perfusion: Goal: Risk factors for ineffective tissue perfusion will decrease Outcome: Progressing Goal: Risk of venous thrombosis will decrease Outcome: Progressing Problem: Urinary Elimination: Goal: Ability to achieve and maintain adequate urine output will improve Outcome: Progressing Goal: Ability to achieve and maintain adequate renal perfusion and functioning will improve Outcome: Progressing ts trend positively F FORESTER * Plan of Care - Qing Fernandez RRT - 05/24/2021 3:25 PM CST Problem: Respiratory: Goal: Ability to maintain a clear airway will improve Outcome: Progressing Goal: Ability to maintain adequate ventilation will improve Outcome: Progressing Metered Dose Inhaler MDI given per physician order. The patient has been instructed on proper use and technique. The patient tolerates the treatment well with good technique. Oxygen Therapy Patient remains on oxygen titration protocol. Wean FiO2 to maintain SpO2 >92%. F [facility]ESTER * Plan of Care - Kyree Bower RN - 05/24/2021 3:44 AM CST Goals: Clinical Goals for the Shift: stable VSS, improve oxygenation, wean oxygen, comfort and safety. Summary: Problem: Health Behavior: Goal: Understanding of discharge needs will improve Outcome: Progressing Problem: Cardiac: Goal: Ability to achieve and maintain adequate cardiopulmonary perfusion will improve Outcome: Progressing Goal: Hemodynamic stability will improve Outcome: Progressing Goal: Will show no evidence of cardiac arrhythmias Outcome: Progressing Problem: Coping: Goal: Ability to adjust to condition or change in health will improve Outcome: Progressing Goal: Ability to state activities that reduce stress will improve Outcome: Progressing Goal: Level of anxiety will decrease Outcome: Progressing Problem: Fluid Volume: Goal: Risk for excess fluid volume will decrease Outcome: Progressing Problem: Health Behavior: Goal: Compliance with treatment plan for underlying cause of condition will improve Outcome: Progressing Problem: Physical Regulation: Goal: Complications related to the disease process, condition or treatment will be avoided or minimized Outcome: Progressing Goal: Diagnostic test results will improve Outcome: Progressing Problem: Sensory: Goal: General experience of comfort will improve Outcome: Progressing Goal: Satisfaction with pain management regimen will improve Outcome: Progressing Problem: Activity: Goal: Mobility will improve Outcome: Progressing Problem: Lack of Knowledge: Goal: Understanding of ways to prevent future skin breakdown will improve Outcome: Progressing Goal: Ability to identify appropriate dietary choices will improve Outcome: Progressing Problem: Nutritional: Goal: Dietary intake will improve Outcome: Progressing Goal: Ability to maintain a balanced intake and output will improve Outcome: Progressing Problem: Skin Integrity: Goal: Risk for impaired skin integrity will decrease Outcome: Progressing Goal: Ability to demonstrate warm and dry skin will improve Outcome: Progressing Goal: Circulation will improve to fullest extent possible Outcome: Progressing Problem: Lack of Knowledge: Goal: Ability to state ways to decrease the risk of falls will improve Outcome: Progressing Problem: Safety: Goal: Will remain free from falls Outcome: Progressing Goal: Will remain free from injury from falls Outcome: Progressing Goal: Will remain free from falls and injury in home environment Outcome: Progressing Problem: Respiratory: Goal: Ability to maintain a clear airway will improve Outcome: Progressing Goal: Ability to maintain adequate ventilation will improve Outcome: Progressing Problem: Activity: Goal: Risk for activity intolerance will decrease Outcome: Progressing Problem: Bowel/Gastric: Goal: Gastrointestinal status for postoperative course will improve Outcome: Progressing Goal: Ability to maintain normal bowel function will be supported Outcome: Progressing Problem: Cardiac: Goal: Hemodynamic stability will improve Outcome: Progressing Goal: Ability to maintain an adequate cardiac output will improve Outcome: Progressing Goal: Will show no signs and symptoms of excessive bleeding Outcome: Progressing Problem: Lack of Knowledge: Goal: Ability to demonstrate proper wound care will improve Outcome: Progressing Goal: Knowledge of disease or condition will improve Outcome: Progressing Goal: Knowledge of the prescribed therapeutic regimen will improve Outcome: Progressing Problem: Coping: Goal: Ability to adjust to condition or change in health will improve Outcome: Progressing Problem: Health Behavior: Goal: Identification of resources available to assist in meeting health care needs will improve Outcome: Progressing Problem: Nutritional: Goal: Risk for body nutrition deficit will decrease Outcome: Progressing Problem: Physical Regulation: Goal: Postoperative complications will be avoided or minimized Outcome: Progressing Goal: Diagnostic test results will improve Outcome: Progressing Problem: Respiratory: Goal: Levels of oxygenation will improve Outcome: Progressing Goal: Respiratory status will improve Outcome: Progressing Goal: Ability to tolerate decreased levels of ventilator support will improve Outcome: Progressing Problem: Sensory: Goal: Pain level will decrease Outcome: Progressing Problem: Skin Integrity: Goal: Demonstration of wound healing without infection will improve Outcome: Progressing Goal: Risk for impaired skin integrity will decrease Outcome: Progressing Problem: Tissue Perfusion: Goal: Risk factors for ineffective tissue perfusion will decrease Outcome: Progressing Goal: Risk of venous thrombosis will decrease Outcome: Progressing Problem: Urinary Elimination: Goal: Ability to achieve and maintain adequate urine output will improve Outcome: Progressing Goal: Ability to achieve and maintain adequate renal perfusion and functioning will improve Outcome: Progressing Problem: Activity: Goal: Activity Intolerance will improve Outcome: Not Progressing Problem: Lack of Knowledge: Goal: Verbalization of understanding the information provided will improve Outcome: Not Progressing Problem: Health Behavior: Goal: Identification of resources available to assist in meeting health care needs will improve Outcome: Not Progressing F [facility]ESTER * Plan of Care - Stefania Gallegos RRT - 05/24/2021 1:25 AM CST Oxygen Therapy Patient remains on oxygen titration protocol. Wean FiO2 to maintain SpO2 >92%. Cough Patient has a strong cough on demand. Will continue to monitor sputum amount, color, and consistency. Metered Dose Inhaler MDI given per physician order. The patient has been instructed on proper use and technique. The patient tolerates the treatment well with good technique. F [facility]ESTER * Plan of Care - Leola Truong RN - 05/23/2021 5:10 PM CST Goals: Clinical Goals for the Shift: VSS, improve oxygenation, wean oxygen as tolerated, comfort and safety Summary: VSS, oxygen was weaned as tolerated, pt had poor appetite and slept most of the day. Refused to get up into chair or watch TV or anything. Pt remains comfortable and safe. Will continue to monitor. Leola Truong RN Problem: Activity: Goal: Activity Intolerance will improve Outcome: Progressing Problem: Cardiac: Goal: Hemodynamic stability will improve Outcome: Progressing Goal: Will show no evidence of cardiac arrhythmias Outcome: Progressing Problem: Safety: Goal: Will remain free from falls Outcome: Progressing Goal: Will remain free from injury from falls Outcome: Progressing Problem: Respiratory: Goal: Ability to maintain a clear airway will improve Outcome: Progressing Goal: Ability to maintain adequate ventilation will improve Outcome: Progressing Problem: Cardiac: Goal: Ability to maintain an adequate cardiac output will improve Outcome: Progressing Goal: Will show no signs and symptoms of excessive bleeding Outcome: Progressing Problem: Respiratory: Goal: Levels of oxygenation will improve Outcome: Progressing Goal: Respiratory status will improve Outcome: Progressing Goal: Ability to tolerate decreased levels of ventilator support will improve Outcome: Progressing Problem: Sensory: Goal: Pain level will decrease Outcome: Progressing Problem: Health Behavior: Goal: Understanding of discharge needs will improve Outcome: Not Progressing Problem: Cardiac: Goal: Ability to achieve and maintain adequate cardiopulmonary perfusion will improve Outcome: Not Progressing Problem: Lack of Knowledge: Goal: Verbalization of understanding the information provided will improve Outcome: Not Progressing Problem: Coping: Goal: Ability to adjust to condition or change in health will improve Outcome: Not Progressing Goal: Ability to state activities that reduce stress will improve Outcome: Not Progressing Goal: Level of anxiety will decrease Outcome: Not Progressing Problem: Fluid Volume: Goal: Risk for excess fluid volume will decrease Outcome: Not Progressing Problem: Health Behavior: Goal: Identification of resources available to assist in meeting health care needs will improve Outcome: Not Progressing Goal: Compliance with treatment plan for underlying cause of condition will improve Outcome: Not Progressing Problem: Physical Regulation: Goal: Complications related to the disease process, condition or treatment will be avoided or minimized Outcome: Not Progressing Goal: Diagnostic test results will improve Outcome: Not Progressing Problem: Sensory: Goal: General experience of comfort will improve Outcome: Not Progressing Goal: Satisfaction with pain management regimen will improve Outcome: Not Progressing Problem: Activity: Goal: Mobility will improve Outcome: Not Progressing Problem: Lack of Knowledge: Goal: Understanding of ways to prevent future skin breakdown will improve Outcome: Not Progressing Goal: Ability to identify appropriate dietary choices will improve Outcome: Not Progressing Problem: Nutritional: Goal: Dietary intake will improve Outcome: Not Progressing Goal: Ability to maintain a balanced intake and output will improve Outcome: Not Progressing Problem: Skin Integrity: Goal: Risk for impaired skin integrity will decrease Outcome: Not Progressing Goal: Ability to demonstrate warm and dry skin will improve Outcome: Not Progressing Goal: Circulation will improve to fullest extent possible Outcome: Not Progressing Problem: Lack of Knowledge: Goal: Ability to state ways to decrease the risk of falls will improve Outcome: Not Progressing Problem: Safety: Goal: Will remain free from falls and injury in home environment Outcome: Not Progressing Problem: Activity: Goal: Risk for activity intolerance will decrease Outcome: Not Progressing Problem: Bowel/Gastric: Goal: Gastrointestinal status for postoperative course will improve Outcome: Not Progressing Goal: Ability to maintain normal bowel function will be supported Outcome: Not Progressing Problem: Cardiac: Goal: Hemodynamic stability will improve Outcome: Not Progressing Problem: Lack of Knowledge: Goal: Ability to demonstrate proper wound care will improve Outcome: Not Progressing Goal: Knowledge of disease or condition will improve Outcome: Not Progressing Goal: Knowledge of the prescribed therapeutic regimen will improve Outcome: Not Progressing Problem: Coping: Goal: Ability to adjust to condition or change in health will improve Outcome: Not Progressing Problem: Health Behavior: Goal: Identification of resources available to assist in meeting health care needs will improve Outcome: Not Progressing Problem: Nutritional: Goal: Risk for body nutrition deficit will decrease Outcome: Not Progressing Problem: Physical Regulation: Goal: Postoperative complications will be avoided or minimized Outcome: Not Progressing Goal: Diagnostic test results will improve Outcome: Not Progressing Problem: Skin Integrity: Goal: Demonstration of wound healing without infection will improve Outcome: Not Progressing Goal: Risk for impaired skin integrity will decrease Outcome: Not Progressing Problem: Tissue Perfusion: Goal: Risk factors for ineffective tissue perfusion will decrease Outcome: Not Progressing Goal: Risk of venous thrombosis will decrease Outcome: Not Progressing Problem: Urinary Elimination: Goal: Ability to achieve and maintain adequate urine output will improve Outcome: Not Progressing Goal: Ability to achieve and maintain adequate renal perfusion and functioning will improve Outcome: Not Progressing Problem: Physical Regulation: Goal: Complications related to the disease process, condition or treatment will be avoided or minimized Outcome: Not Progressing Problem: Lack of Knowledge: Goal: Verbalization of understanding the information provided will improve Outcome: Not Progressing Problem: Physical Regulation: Goal: Complications related to the disease process, condition or treatment will be avoided or minimized Outcome: Not Progressing F [facility]ESTER * Plan of Care - Tiana Salazar RN - 05/22/2021 5:45 PM CST Goals: Clinical Goals for the Shift: VSS, comfort and safety F [facility]ESTER * Plan of Care - Miranda Garza RN - 05/22/2021 1:49 PM STAFF FORESTER Patient remains on optiflow and insulin infusion in the ICU. Alert to person and place, confused attimes. If oxygen requirements are lessened , patient may be able to qualify for LTACH. Will continue to follow patient progress. Miranda Garza RN BSN [employer] [phone] F [facility]ESTER * Plan of Care - Serenity Delgado RN - 05/22/2021 5:16 AM CST Goals: Clinical Goals for the Shift: VSS, comfort and safety Summary: Pt remains restless and pulling off oxygen cannula throughout the night. Glucose remained elevated throughout shift despite insulin dosing per MAR. Vital signs remain stable. Serenity Delgado RN Problem: Health Behavior: Goal: Understanding of discharge needs will improve Outcome: Not Progressing Problem: Activity: Goal: Activity Intolerance will improve Outcome: Not Progressing Problem: Cardiac: Goal: Ability to achieve and maintain adequate cardiopulmonary perfusion will improve Outcome: Not Progressing Goal: Hemodynamic stability will improve Outcome: Not Progressing Goal: Will show no evidence of cardiac arrhythmias Outcome: Not Progressing Problem: Lack of Knowledge: Goal: Verbalization of understanding the information provided will improve Outcome: Not Progressing Problem: Coping: Goal: Ability to adjust to condition or change in health will improve Outcome: Not Progressing Goal: Ability to state activities that reduce stress will improve Outcome: Not Progressing Goal: Level of anxiety will decrease Outcome: Not Progressing Problem: Fluid Volume: Goal: Risk for excess fluid volume will decrease Outcome: Not Progressing Problem: Health Behavior: Goal: Identification of resources available to assist in meeting health care needs will improve Outcome: Not Progressing Goal: Compliance with treatment plan for underlying cause of condition will improve Outcome: Not Progressing Problem: Physical Regulation: Goal: Complications related to the disease process, condition or treatment will be avoided or minimized Outcome: Not Progressing Goal: Diagnostic test results will improve Outcome: Not Progressing Problem: Sensory: Goal: General experience of comfort will improve Outcome: Not Progressing Goal: Satisfaction with pain management regimen will improve Outcome: Not Progressing Problem: Activity: Goal: Mobility will improve Outcome: Not Progressing Problem: Lack of Knowledge: Goal: Understanding of ways to prevent future skin breakdown will improve Outcome: Not Progressing Goal: Ability to identify appropriate dietary choices will improve Outcome: Not Progressing Problem: Nutritional: Goal: Dietary intake will improve Outcome: Not Progressing Goal: Ability to maintain a balanced intake and output will improve Outcome: Not Progressing Problem: Skin Integrity: Goal: Risk for impaired skin integrity will decrease Outcome: Not Progressing Goal: Ability to demonstrate warm and dry skin will improve Outcome: Not Progressing Goal: Circulation will improve to fullest extent possible Outcome: Not Progressing Problem: Lack of Knowledge: Goal: Ability to state ways to decrease the risk of falls will improve Outcome: Not Progressing Problem: Safety: Goal: Will remain free from falls Outcome: Not Progressing Goal: Will remain free from injury from falls Outcome: Not Progressing Goal: Will remain free from falls and injury in home environment Outcome: Not Progressing Problem: Respiratory: Goal: Ability to maintain a clear airway will improve Outcome: Not Progressing Goal: Ability to maintain adequate ventilation will improve Outcome: Not Progressing Problem: Activity: Goal: Risk for activity intolerance will decrease Outcome: Not Progressing Problem: Bowel/Gastric: Goal: Gastrointestinal status for postoperative course will improve Outcome: Not Progressing Goal: Ability to maintain normal bowel function will be supported Outcome: Not Progressing Problem: Cardiac: Goal: Hemodynamic stability will improve Outcome: Not Progressing Goal: Ability to maintain an adequate cardiac output will improve Outcome: Not Progressing Goal: Will show no signs and symptoms of excessive bleeding Outcome: Not Progressing Problem: Lack of Knowledge: Goal: Ability to demonstrate proper wound care will improve Outcome: Not Progressing Goal: Knowledge of disease or condition will improve Outcome: Not Progressing Goal: Knowledge of the prescribed therapeutic regimen will improve Outcome: Not Progressing Problem: Coping: Goal: Ability to adjust to condition or change in health will improve Outcome: Not Progressing Problem: Health Behavior: Goal: Identification of resources available to assist in meeting health care needs will improve Outcome: Not Progressing Problem: Nutritional: Goal: Risk for body nutrition deficit will decrease Outcome: Not Progressing Problem: Physical Regulation: Goal: Postoperative complications will be avoided or minimized Outcome: Not Progressing Goal: Diagnostic test results will improve Outcome: Not Progressing Problem: Respiratory: Goal: Levels of oxygenation will improve Outcome: Not Progressing Goal: Respiratory status will improve Outcome: Not Progressing Goal: Ability to tolerate decreased levels of ventilator support will improve Outcome: Not Progressing Problem: Sensory: Goal: Pain level will decrease Outcome: Not Progressing Problem: Skin Integrity: Goal: Demonstration of wound healing without infection will improve Outcome: Not Progressing Goal: Risk for impaired skin integrity will decrease Outcome: Not Progressing Problem: Tissue Perfusion: Goal: Risk factors for ineffective tissue perfusion will decrease Outcome: Not Progressing Goal: Risk of venous thrombosis will decrease Outcome: Not Progressing Problem: Urinary Elimination: Goal: Ability to achieve and maintain adequate urine output will improve Outcome: Not Progressing Goal: Ability to achieve and maintain adequate renal perfusion and functioning will improve Outcome: Not Progressing F FORESTER * Plan of Care - Tiana Salazar RN - 05/21/2021 1:59 PM CST Goals: Clinical Goals for the Shift: vss, wean optiflow, pain control, comfort, safety F FORESTER * Plan of Care - Laura Rey RN - 05/21/2021 9:31 AM CST Problem: Health Behavior: Goal: Understanding of discharge needs will improve Outcome: Progressing Problem: Activity: Goal: Activity Intolerance will improve Outcome: Progressing Problem: Cardiac: Goal: Ability to achieve and maintain adequate cardiopulmonary perfusion will improve Outcome: Progressing Goal: Hemodynamic stability will improve Outcome: Progressing Goal: Will show no evidence of cardiac arrhythmias Outcome: Progressing Problem: Lack of Knowledge: Goal: Verbalization of understanding the information provided will improve Outcome: Progressing Problem: Coping: Goal: Ability to adjust to condition or change in health will improve Outcome: Progressing Goal: Ability to state activities that reduce stress will improve Outcome: Progressing Goal: Level of anxiety will decrease Outcome: Progressing Problem: Fluid Volume: Goal: Risk for excess fluid volume will decrease Outcome: Progressing Problem: Health Behavior: Goal: Identification of resources available to assist in meeting health care needs will improve Outcome: Progressing Goal: Compliance with treatment plan for underlying cause of condition will improve Outcome: Progressing Problem: Physical Regulation: Goal: Complications related to the disease process, condition or treatment will be avoided or minimized Outcome: Progressing Goal: Diagnostic test results will improve Outcome: Progressing Problem: Sensory: Goal: General experience of comfort will improve Outcome: Progressing Goal: Satisfaction with pain management regimen will improve Outcome: Progressing Problem: Activity: Goal: Mobility will improve Outcome: Progressing Problem: Lack of Knowledge: Goal: Understanding of ways to prevent future skin breakdown will improve Outcome: Progressing Goal: Ability to identify appropriate dietary choices will improve Outcome: Progressing Problem: Nutritional: Goal: Dietary intake will improve Outcome: Progressing Goal: Ability to maintain a balanced intake and output will improve Outcome: Progressing Problem: Skin Integrity: Goal: Risk for impaired skin integrity will decrease Outcome: Progressing Goal: Ability to demonstrate warm and dry skin will improve Outcome: Progressing Goal: Circulation will improve to fullest extent possible Outcome: Progressing Problem: Lack of Knowledge: Goal: Ability to state ways to decrease the risk of falls will improve Outcome: Progressing Problem: Safety: Goal: Will remain free from falls Outcome: Progressing Goal: Will remain free from injury from falls Outcome: Progressing Goal: Will remain free from falls and injury in home environment Outcome: Progressing Problem: Respiratory: Goal: Ability to maintain a clear airway will improve Outcome: Progressing Goal: Ability to maintain adequate ventilation will improve Outcome: Progressing Problem: Activity: Goal: Risk for activity intolerance will decrease Outcome: Progressing Problem: Bowel/Gastric: Goal: Gastrointestinal status for postoperative course will improve Outcome: Progressing Goal: Ability to maintain normal bowel function will be supported Outcome: Progressing Problem: Cardiac: Goal: Hemodynamic stability will improve Outcome: Progressing Goal: Ability to maintain an adequate cardiac output will improve Outcome: Progressing Goal: Will show no signs and symptoms of excessive bleeding Outcome: Progressing Problem: Lack of Knowledge: Goal: Ability to demonstrate proper wound care will improve Outcome: Progressing Goal: Knowledge of disease or condition will improve Outcome: Progressing Goal: Knowledge of the prescribed therapeutic regimen will improve Outcome: Progressing Problem: Coping: Goal: Ability to adjust to condition or change in health will improve Outcome: Progressing Problem: Health Behavior: Goal: Identification of resources available to assist in meeting health care needs will improve Outcome: Progressing Problem: Nutritional: Goal: Risk for body nutrition deficit will decrease Outcome: Progressing Problem: Physical Regulation: Goal: Postoperative complications will be avoided or minimized Outcome: Progressing Goal: Diagnostic test results will improve Outcome: Progressing Problem: Respiratory: Goal: Levels of oxygenation will improve Outcome: Progressing Goal: Respiratory status will improve Outcome: Progressing Goal: Ability to tolerate decreased levels of ventilator support will improve Outcome: Progressing Problem: Sensory: Goal: Pain level will decrease Outcome: Progressing Problem: Skin Integrity: Goal: Demonstration of wound healing without infection will improve Outcome: Progressing Goal: Risk for impaired skin integrity will decrease Outcome: Progressing Problem: Tissue Perfusion: Goal: Risk factors for ineffective tissue perfusion will decrease Outcome: Progressing Goal: Risk of venous thrombosis will decrease Outcome: Progressing Problem: Urinary Elimination: Goal: Ability to achieve and maintain adequate urine output will improve Outcome: Progressing Goal: Ability to achieve and maintain adequate renal perfusion and functioning will improve Outcome: Progressing Goals: Clinical Goals for the Shift: vss, wean optiflow, pain control, comfort, safety Summary: F FORESTER * Plan of Care - Alexa Rivera RN - 05/20/2021 5:52 PM CST Goals: Clinical Goals for the Shift: Wean oxygen as tolerated, good PO intake, good sleep tonight, incentive spirometer, up to chair Summary: 1130 - Patient up to chair for lunch, ambulated to chair in room with assistance x1, unsteady gait. 1715 - Patient not sitting up straight in bed, leaning down. Pursed lip breathing and mild accessory muscle use noted. O2 saturation 85% on 50% and 50L Optiflow. Optiflow slowly titrated up as neededto achieve O2 saturation of 92%. Optiflow now at 100% and 60L. Patient boosted up in bed and HOB increased to 40 degrees. ESCROW CLERK to bedside. Patient denies shortness of breath, breathing unlabored, O2 saturation now 95%. RT updated. Patient asking if he is at [facility] and what time it is, patient re-oriented to where he is, time, and situational details. Patient has cell phone at bedside for him to see the time. Date on white board in room. Problem: Health Behavior: Goal: Understanding of discharge needs will improve Outcome: Progressing Problem: Activity: Goal: Activity Intolerance will improve Outcome: Progressing Problem: Cardiac: Goal: Ability to achieve and maintain adequate cardiopulmonary perfusion will improve Outcome: Progressing Goal: Hemodynamic stability will improve Outcome: Progressing Goal: Will show no evidence of cardiac arrhythmias Outcome: Progressing Problem: Lack of Knowledge: Goal: Verbalization of understanding the information provided will improve Outcome: Progressing Problem: Coping: Goal: Ability to adjust to condition or change in health will improve Outcome: Progressing Goal: Ability to state activities that reduce stress will improve Outcome: Progressing Goal: Level of anxiety will decrease Outcome: Progressing Problem: Fluid Volume: Goal: Risk for excess fluid volume will decrease Outcome: Progressing Problem: Health Behavior: Goal: Identification of resources available to assist in meeting health care needs will improve Outcome: Progressing Goal: Compliance with treatment plan for underlying cause of condition will improve Outcome: Progressing Problem: Physical Regulation: Goal: Complications related to the disease process, condition or treatment will be avoided or minimized Outcome: Progressing Goal: Diagnostic test results will improve Outcome: Progressing Problem: Sensory: Goal: General experience of comfort will improve Outcome: Progressing Goal: Satisfaction with pain management regimen will improve Outcome: Progressing Problem: Activity: Goal: Mobility will improve Outcome: Progressing Problem: Lack of Knowledge: Goal: Understanding of ways to prevent future skin breakdown will improve Outcome: Progressing Goal: Ability to identify appropriate dietary choices will improve Outcome: Progressing Problem: Nutritional: Goal: Dietary intake will improve Outcome: Progressing Goal: Ability to maintain a balanced intake and output will improve Outcome: Progressing Problem: Skin Integrity: Goal: Risk for impaired skin integrity will decrease Outcome: Progressing Goal: Ability to demonstrate warm and dry skin will improve Outcome: Progressing Goal: Circulation will improve to fullest extent possible Outcome: Progressing Problem: Lack of Knowledge: Goal: Ability to state ways to decrease the risk of falls will improve Outcome: Progressing Problem: Safety: Goal: Will remain free from falls Outcome: Progressing Goal: Will remain free from injury from falls Outcome: Progressing Goal: Will remain free from falls and injury in home environment Outcome: Progressing Problem: Respiratory: Goal: Ability to maintain a clear airway will improve Outcome: Progressing Goal: Ability to maintain adequate ventilation will improve Outcome: Progressing Problem: Activity: Goal: Risk for activity intolerance will decrease Outcome: Progressing Problem: Bowel/Gastric: Goal: Gastrointestinal status for postoperative course will improve Outcome: Progressing Goal: Ability to maintain normal bowel function will be supported Outcome: Progressing Problem: Cardiac: Goal: Hemodynamic stability will improve Outcome: Progressing Goal: Ability to maintain an adequate cardiac output will improve Outcome: Progressing Goal: Will show no signs and symptoms of excessive bleeding Outcome: Progressing Problem: Lack of Knowledge: Goal: Ability to demonstrate proper wound care will improve Outcome: Progressing Goal: Knowledge of disease or condition will improve Outcome: Progressing Goal: Knowledge of the prescribed therapeutic regimen will improve Outcome: Progressing Problem: Coping: Goal: Ability to adjust to condition or change in health will improve Outcome: Progressing Problem: Health Behavior: Goal: Identification of resources available to assist in meeting health care needs will improve Outcome: Progressing Problem: Nutritional: Goal: Risk for body nutrition deficit will decrease Outcome: Progressing Problem: Physical Regulation: Goal: Postoperative complications will be avoided or minimized Outcome: Progressing Goal: Diagnostic test results will improve Outcome: Progressing Problem: Respiratory: Goal: Levels of oxygenation will improve Outcome: Progressing Goal: Respiratory status will improve Outcome: Progressing Goal: Ability to tolerate decreased levels of ventilator support will improve Outcome: Progressing Problem: Sensory: Goal: Pain level will decrease Outcome: Progressing Problem: Skin Integrity: Goal: Demonstration of wound healing without infection will improve Outcome: Progressing Goal: Risk for impaired skin integrity will decrease Outcome: Progressing Problem: Tissue Perfusion: Goal: Risk factors for ineffective tissue perfusion will decrease Outcome: Progressing Goal: Risk of venous thrombosis will decrease Outcome: Progressing Problem: Urinary Elimination: Goal: Ability to achieve and maintain adequate urine output will improve Outcome: Progressing Goal: Ability to achieve and maintain adequate renal perfusion and functioning will improve Outcome: Progressing Problem: Physical Regulation: Goal: Complications related to the disease process, condition or treatment will be avoided or minimized Outcome: Progressing Problem: Lack of Knowledge: Goal: Verbalization of understanding the information provided will improve Outcome: Progressing Problem: Physical Regulation: Goal: Complications related to the disease process, condition or treatment will be avoided or minimized Outcome: Progressing F FORESTER F FORESTER F FORESTER * Plan of Care - Miranda Garza RN - 05/19/2021 1:34 PM STAFF FORESTER Per chart review patient on 2 L nc today. Remain hypotensive and tachycardic. Off pressors at this time. Lasix infusion continues. Worked with therapy today and up in chair . CM/SW will continue to follow patient progress. Miranda Garza RN BSN [employer] [phone] F FORESTER * Plan of Care - Betty Rogers RN - 05/19/2021 12:46 PM CST Problem: Health Behavior: Goal: Understanding of discharge needs will improve Outcome: Progressing Problem: Activity: Goal: Activity Intolerance will improve Outcome: Progressing Problem: Cardiac: Goal: Ability to achieve and maintain adequate cardiopulmonary perfusion will improve Outcome: Progressing Goal: Hemodynamic stability will improve Outcome: Progressing Goal: Will show no evidence of cardiac arrhythmias Outcome: Progressing Problem: Lack of Knowledge: Goal: Verbalization of understanding the information provided will improve Outcome: Progressing Problem: Coping: Goal: Ability to adjust to condition or change in health will improve Outcome: Progressing Goal: Ability to state activities that reduce stress will improve Outcome: Progressing Goal: Level of anxiety will decrease Outcome: Progressing Problem: Fluid Volume: Goal: Risk for excess fluid volume will decrease Outcome: Progressing Problem: Health Behavior: Goal: Identification of resources available to assist in meeting health care needs will improve Outcome: Progressing Goal: Compliance with treatment plan for underlying cause of condition will improve Outcome: Progressing Problem: Physical Regulation: Goal: Complications related to the disease process, condition or treatment will be avoided or minimized Outcome: Progressing Goal: Diagnostic test results will improve Outcome: Progressing Problem: Sensory: Goal: General experience of comfort will improve Outcome: Progressing Goal: Satisfaction with pain management regimen will improve Outcome: Progressing Problem: Activity: Goal: Mobility will improve Outcome: Progressing Problem: Lack of Knowledge: Goal: Understanding of ways to prevent future skin breakdown will improve Outcome: Progressing Goal: Ability to identify appropriate dietary choices will improve Outcome: Progressing Problem: Nutritional: Goal: Dietary intake will improve Outcome: Progressing Goal: Ability to maintain a balanced intake and output will improve Outcome: Progressing Problem: Skin Integrity: Goal: Risk for impaired skin integrity will decrease Outcome: Progressing Goal: Ability to demonstrate warm and dry skin will improve Outcome: Progressing Goal: Circulation will improve to fullest extent possible Outcome: Progressing Problem: Lack of Knowledge: Goal: Ability to state ways to decrease the risk of falls will improve Outcome: Progressing Problem: Safety: Goal: Will remain free from falls Outcome: Progressing Goal: Will remain free from injury from falls Outcome: Progressing Goal: Will remain free from falls and injury in home environment Outcome: Progressing Problem: Respiratory: Goal: Ability to maintain a clear airway will improve Outcome: Progressing Goal: Ability to maintain adequate ventilation will improve Outcome: Progressing Problem: Activity: Goal: Risk for activity intolerance will decrease Outcome: Progressing Problem: Bowel/Gastric: Goal: Gastrointestinal status for postoperative course will improve Outcome: Progressing Goal: Ability to maintain normal bowel function will be supported Outcome: Progressing Problem: Cardiac: Goal: Hemodynamic stability will improve Outcome: Progressing Goal: Ability to maintain an adequate cardiac output will improve Outcome: Progressing Goal: Will show no signs and symptoms of excessive bleeding Outcome: Progressing Problem: Lack of Knowledge: Goal: Ability to demonstrate proper wound care will improve Outcome: Progressing Goal: Knowledge of disease or condition will improve Outcome: Progressing Goal: Knowledge of the prescribed therapeutic regimen will improve Outcome: Progressing Problem: Coping: Goal: Ability to adjust to condition or change in health will improve Outcome: Progressing Problem: Health Behavior: Goal: Identification of resources available to assist in meeting health care needs will improve Outcome: Progressing Problem: Nutritional: Goal: Risk for body nutrition deficit will decrease Outcome: Progressing Problem: Physical Regulation: Goal: Postoperative complications will be avoided or minimized Outcome: Progressing Goal: Diagnostic test results will improve Outcome: Progressing Problem: Respiratory: Goal: Levels of oxygenation will improve Outcome: Progressing Goal: Respiratory status will improve Outcome: Progressing Goal: Ability to tolerate decreased levels of ventilator support will improve Outcome: Progressing Problem: Sensory: Goal: Pain level will decrease Outcome: Progressing Problem: Skin Integrity: Goal: Demonstration of wound healing without infection will improve Outcome: Progressing Goal: Risk for impaired skin integrity will decrease Outcome: Progressing Problem: Tissue Perfusion: Goal: Risk factors for ineffective tissue perfusion will decrease Outcome: Progressing Goal: Risk of venous thrombosis will decrease Outcome: Progressing Problem: Urinary Elimination: Goal: Ability to achieve and maintain adequate urine output will improve Outcome: Progressing Goal: Ability to achieve and maintain adequate renal perfusion and functioning will improve Outcome: Progressing Goals: Clinical Goals for the Shift: Stable VS/Labs, Comfort Summary: off levo hfnc weaned down to 2 l nc vitasl stable possible move to [facility] F FORESTER * Plan of Care - Deandre Harrison RN - 05/19/2021 6:05 AM CST Goals: Clinical Goals for the Shift: Stable VS/Labs, Comfort Summary: This patient required 15L High Flow overnight. He also required restarting Levophed to keep his BP at an acceptable level. Urine output has dropped, also, although kidney function (from labs) has improved. F FORESTER * Plan of Care - Marylu Dempsey, PT - 05/18/2021 12:58 PM CST Patient with decline in medical status with transfer to ICU. Patient progress slowed due to acute respiratory distress, but still making progress. All goals remain appropriate at this time. F FORESTER * Plan of Care - Betty Rogers RN - 05/18/2021 7:27 AM CST Goals: Clinical Goals for the Shift: Stable VS/Labs, Comfort Summary: stable on lasix gtt, weaning levophed picc ordered today F FORESTER * Plan of Care - Deandre Harrison RN - 05/18/2021 6:15 AM CST Goals: Clinical Goals for the Shift: Stable VS/Labs, Comfort Summary: Patient did require more Oxygen support. F FORESTER * Plan of Care - Romeo Nagel RN - 05/17/2021 11:35 AM CST Goals: Clinical Goals for the Shift: discussed the plan of care for the day with patient Summary: Pt up in the chair. VSS. Weaning levophed as tolerated. F FORESTER * Plan of Care - Deirdre Hoskins RRT - 05/17/2021 11:29 AM CST Oxygen Therapy Patient remains on oxygen titration protocol. Wean FiO2 to maintain SpO2 >92%. Patient is on 6L HFNC and has been weaned from 15L to 12L and so on. Continue to wean o2 as tolerated. F FORESTER * Plan of Care - Shailesh Talbert RN - 05/17/2021 6:52 AM CST Goals: Clinical Goals for the Shift: RN vss condom cath Summary: levo started for hypotension F FORESTER * Plan of Care - Devonte Ward RN - 05/17/2021 12:47 AM CST Goals: Clinical Goals for the Shift: vss; decrease in oxgyen needs; normalizing routine labs; Summary: see cares and safety F FORESTER * Plan of Care - Samantha Heaton RN - 05/16/2021 5:21 PM CST Goals: Clinical Goals for the Shift: monitor breathing, monitor v/s, comfort, safety, repositioning Summary: F FORESTER * Plan of Care - Morenita Ramirez RN - 05/15/2021 8:00 PM CST Problem: Health Behavior: Goal: Understanding of discharge needs will improve Outcome: Progressing Problem: Activity: Goal: Activity Intolerance will improve Outcome: Progressing Problem: Cardiac: Goal: Ability to achieve and maintain adequate cardiopulmonary perfusion will improve Outcome: Progressing Goal: Hemodynamic stability will improve Outcome: Progressing Goal: Will show no evidence of cardiac arrhythmias Outcome: Progressing Problem: Lack of Knowledge: Goal: Verbalization of understanding the information provided will improve Outcome: Progressing Problem: Coping: Goal: Ability to adjust to condition or change in health will improve Outcome: Progressing Goal: Ability to state activities that reduce stress will improve Outcome: Progressing Goal: Level of anxiety will decrease Outcome: Progressing Problem: Fluid Volume: Goal: Risk for excess fluid volume will decrease Outcome: Progressing Problem: Health Behavior: Goal: Identification of resources available to assist in meeting health care needs will improve Outcome: Progressing Goal: Compliance with treatment plan for underlying cause of condition will improve Outcome: Progressing Problem: Physical Regulation: Goal: Complications related to the disease process, condition or treatment will be avoided or minimized Outcome: Progressing Goal: Diagnostic test results will improve Outcome: Progressing Problem: Sensory: Goal: General experience of comfort will improve Outcome: Progressing Goal: Satisfaction with pain management regimen will improve Outcome: Progressing Problem: Activity: Goal: Mobility will improve Outcome: Progressing Problem: Lack of Knowledge: Goal: Understanding of ways to prevent future skin breakdown will improve Outcome: Progressing Goal: Ability to identify appropriate dietary choices will improve Outcome: Progressing Problem: Nutritional: Goal: Dietary intake will improve Outcome: Progressing Goal: Ability to maintain a balanced intake and output will improve Outcome: Progressing Problem: Skin Integrity: Goal: Risk for impaired skin integrity will decrease Outcome: Progressing Goal: Ability to demonstrate warm and dry skin will improve Outcome: Progressing Goal: Circulation will improve to fullest extent possible Outcome: Progressing Problem: Lack of Knowledge: Goal: Ability to state ways to decrease the risk of falls will improve Outcome: Progressing Problem: Safety: Goal: Will remain free from falls Outcome: Progressing Goal: Will remain free from injury from falls Outcome: Progressing Goal: Will remain free from falls and injury in home environment Outcome: Progressing Problem: Respiratory: Goal: Ability to maintain a clear airway will improve Outcome: Progressing Goal: Ability to maintain adequate ventilation will improve Outcome: Progressing Problem: Activity: Goal: Risk for activity intolerance will decrease Outcome: Progressing Problem: Bowel/Gastric: Goal: Gastrointestinal status for postoperative course will improve Outcome: Progressing Goal: Ability to maintain normal bowel function will be supported Outcome: Progressing Problem: Cardiac: Goal: Hemodynamic stability will improve Outcome: Progressing Goal: Ability to maintain an adequate cardiac output will improve Outcome: Progressing Goal: Will show no signs and symptoms of excessive bleeding Outcome: Progressing Problem: Lack of Knowledge: Goal: Ability to demonstrate proper wound care will improve Outcome: Progressing Goal: Knowledge of disease or condition will improve Outcome: Progressing Goal: Knowledge of the prescribed therapeutic regimen will improve Outcome: Progressing Problem: Coping: Goal: Ability to adjust to condition or change in health will improve Outcome: Progressing Problem: Health Behavior: Goal: Identification of resources available to assist in meeting health care needs will improve Outcome: Progressing Problem: Nutritional: Goal: Risk for body nutrition deficit will decrease Outcome: Progressing Problem: Physical Regulation: Goal: Postoperative complications will be avoided or minimized Outcome: Progressing Goal: Diagnostic test results will improve Outcome: Progressing Problem: Respiratory: Goal: Levels of oxygenation will improve Outcome: Progressing Goal: Respiratory status will improve Outcome: Progressing Goal: Ability to tolerate decreased levels of ventilator support will improve Outcome: Progressing Problem: Sensory: Goal: Pain level will decrease Outcome: Progressing Problem: Skin Integrity: Goal: Demonstration of wound healing without infection will improve Outcome: Progressing Goal: Risk for impaired skin integrity will decrease Outcome: Progressing Problem: Tissue Perfusion: Goal: Risk factors for ineffective tissue perfusion will decrease Outcome: Progressing Goal: Risk of venous thrombosis will decrease Outcome: Progressing Problem: Urinary Elimination: Goal: Ability to achieve and maintain adequate urine output will improve Outcome: Progressing Goal: Ability to achieve and maintain adequate renal perfusion and functioning will improve Outcome: Progressing Goals: Clinical Goals for the Shift: Pt will have stable VS, labs, bedside glucose, maintain safety & comfort, improved respiratory status, sleep hygiene, improve urinary status Summary: continue clinical goals F FORESTER * Plan of Care - Charo Girard RN - 05/15/2021 4:11 PM CST Goals: Clinical Goals for the Shift: stable vs, comfort, safety Problem: Health Behavior: Goal: Understanding of discharge needs will improve Outcome: Progressing Problem: Activity: Goal: Activity Intolerance will improve Outcome: Progressing Problem: Cardiac: Goal: Ability to achieve and maintain adequate cardiopulmonary perfusion will improve Outcome: Progressing Goal: Hemodynamic stability will improve Outcome: Progressing Goal: Will show no evidence of cardiac arrhythmias Outcome: Progressing Problem: Lack of Knowledge: Goal: Verbalization of understanding the information provided will improve Outcome: Progressing Problem: Coping: Goal: Ability to adjust to condition or change in health will improve Outcome: Progressing Goal: Ability to state activities that reduce stress will improve Outcome: Progressing Goal: Level of anxiety will decrease Outcome: Progressing Problem: Fluid Volume: Goal: Risk for excess fluid volume will decrease Outcome: Progressing Problem: Health Behavior: Goal: Identification of resources available to assist in meeting health care needs will improve Outcome: Progressing Goal: Compliance with treatment plan for underlying cause of condition will improve Outcome: Progressing Problem: Physical Regulation: Goal: Complications related to the disease process, condition or treatment will be avoided or minimized Outcome: Progressing Goal: Diagnostic test results will improve Outcome: Progressing Problem: Sensory: Goal: General experience of comfort will improve Outcome: Progressing Goal: Satisfaction with pain management regimen will improve Outcome: Progressing Problem: Activity: Goal: Mobility will improve Outcome: Progressing Problem: Lack of Knowledge: Goal: Understanding of ways to prevent future skin breakdown will improve Outcome: Progressing Goal: Ability to identify appropriate dietary choices will improve Outcome: Progressing Problem: Nutritional: Goal: Dietary intake will improve Outcome: Progressing Goal: Ability to maintain a balanced intake and output will improve Outcome: Progressing Problem: Skin Integrity: Goal: Risk for impaired skin integrity will decrease Outcome: Progressing Goal: Ability to demonstrate warm and dry skin will improve Outcome: Progressing Goal: Circulation will improve to fullest extent possible Outcome: Progressing Problem: Lack of Knowledge: Goal: Ability to state ways to decrease the risk of falls will improve Outcome: Progressing Problem: Safety: Goal: Will remain free from falls Outcome: Progressing Goal: Will remain free from injury from falls Outcome: Progressing Goal: Will remain free from falls and injury in home environment Outcome: Progressing Problem: Respiratory: Goal: Ability to maintain a clear airway will improve Outcome: Progressing Goal: Ability to maintain adequate ventilation will improve Outcome: Progressing Problem: Activity: Goal: Risk for activity intolerance will decrease Outcome: Progressing Problem: Bowel/Gastric: Goal: Gastrointestinal status for postoperative course will improve Outcome: Progressing Goal: Ability to maintain normal bowel function will be supported Outcome: Progressing Problem: Cardiac: Goal: Hemodynamic stability will improve Outcome: Progressing Goal: Ability to maintain an adequate cardiac output will improve Outcome: Progressing Goal: Will show no signs and symptoms of excessive bleeding Outcome: Progressing Problem: Lack of Knowledge: Goal: Ability to demonstrate proper wound care will improve Outcome: Progressing Goal: Knowledge of disease or condition will improve Outcome: Progressing Goal: Knowledge of the prescribed therapeutic regimen will improve Outcome: Progressing Problem: Coping: Goal: Ability to adjust to condition or change in health will improve Outcome: Progressing Problem: Health Behavior: Goal: Identification of resources available to assist in meeting health care needs will improve Outcome: Progressing Problem: Nutritional: Goal: Risk for body nutrition deficit will decrease Outcome: Progressing Problem: Physical Regulation: Goal: Postoperative complications will be avoided or minimized Outcome: Progressing Goal: Diagnostic test results will improve Outcome: Progressing Problem: Respiratory: Goal: Levels of oxygenation will improve Outcome: Progressing Goal: Respiratory status will improve Outcome: Progressing Goal: Ability to tolerate decreased levels of ventilator support will improve Outcome: Progressing Problem: Sensory: Goal: Pain level will decrease Outcome: Progressing Problem: Skin Integrity: Goal: Demonstration of wound healing without infection will improve Outcome: Progressing Goal: Risk for impaired skin integrity will decrease Outcome: Progressing Problem: Tissue Perfusion: Goal: Risk factors for ineffective tissue perfusion will decrease Outcome: Progressing Goal: Risk of venous thrombosis will decrease Outcome: Progressing Problem: Urinary Elimination: Goal: Ability to achieve and maintain adequate urine output will improve Outcome: Progressing Goal: Ability to achieve and maintain adequate renal perfusion and functioning will improve Outcome: Progressing Summary: remains on 4-5l oxygen, osorio removed by pt, urology aware and is voiding without difficulty and no clots/ blood present, appetite poor,but is drinking ensures. encouraged to be up in chair for meal, but refused. worked with ot, see notes. Vss. F FORESTER * Anesthesia Post-op Follow-up Note - Robert Duran AA - 05/15/2021 1:17 PM CST Patient: Deepak Alvarado Procedure(s): CYSTOSCOPY with clot evacuation and fulguration Patient location: [facility] Surgical Floor Last vitals: Vitals: 05/15/21 1314 BP: 107/69 Pulse: 102 Resp: 18 Temp: 37 ??C (98.6 ??F) SpO2: 90% Level of consciousness: awake, alert and oriented Post-anesthesia pain: adequate analgesia Anesthetic complications: no Patient had no pain following procedure, no nausea. Able to drink with no issues, no anesthetic complaints F FORESTER * Plan of Care - Apryl Killian MSW - 05/15/2021 11:20 AM CST [facility], and [facility] home care is not able to accept pt. For home health care. NURSING SERVICE DIRECTOR sent referrals for SNF to [facility] in [place], [place] for SNF. Per Nurse (Charo) in [facility] this morning. Pt. Is not ready for DC. NURSING SERVICE DIRECTOR will f/u. F FORESTER * ECIN Note - Apryl Killian MSW - 05/15/2021 11:10 AM CST Images from the original note were not included. Patient Information: Meds and Admin Active Only All Meds/Most Recent Administrations All Meds/Most Recent Administrations eptifibatide (INTEGRILIN) 0.75 mg/mL infusion [[id number]] Ordering Provider: Nalini Clayton MD Status: Completed (Past End Date/Time) Ordered On: 05/01/211754 Frequency: Continuous PRN Timestamps Action Dose / Rate Route Other Information 05/01/211754 New Bag 2 mcg/kg/min 18.29 mL/hr intravenous Performed by: Amarjit Oropeza RN Documented by: Alexa Amor RN sodium chloride 0.9% infusion [[id number]] Ordering Provider: Nalini Clayton MD Status: Completed (Past End Date/Time) Ordered On: 05/01/211757 Frequency: Continuous PRN Timestamps Action Dose / Rate Route Other Information 05/01/211726 New Bag 500 mL/hr 500 mL/hr intravenous Performed by: Amarjit Oropeza RN Documented by: Alexa Amor RN heparin in 0.45% sodium chloride 25,000 units/250 mL (100 units/mL) infusion (premix) [[id number]] Ordering Provider: Nalini Clayton MD Status: Completed (Past End Date/Time) Ordered On: 05/01/211831 Frequency: Continuous PRN Timestamps Action Dose / Rate Route Other Information 05/01/211831 New Bag 1,000 Units/hr 10 mL/hr intravenous Performed by: Amarjit Oropeza RN Documented by: Alexa Amor RN potassium chloride ER (KLOR-CON) extended release tablet 40 mEq [[id number]] Ordering Provider: Balta Ahn MD Status: Completed (Past End Date/Time) Ordered On: 05/02/21803 Starts/Ends: 05/02/21844 - 05/02/21837 Dose (Remaining/Total): 40 mEq (0/1) Route: oral Frequency: Once Rate/Duration: -- / -- Admin Instructions: Do not crush, chew, cut, dissolve, open or otherwise manipulate tablet/capsule. Timestamps Action Dose Route Other Information 05/02/21 0838 Given 40 mEq oral Performed by: Safia Raya RN Scanned Package: 1740-4570-98, 0664-2494-08 ondansetron (ZOFRAN) injection 4 mg [[id number]] Ordering Provider: Rhina Granados MD Status: Verified Ordered On: 05/02/21 1022 Start: 05/02/21 102 Dose (Remaining/Total): 4 mg (--/--) Route: intravenous Frequency: Every 6 hours PRN Rate/Duration: -- / 2 Minutes (No admins scheduled or recorded for this medication) sodium chloride 0.9% IVPB 0-250 mL [[id number]] Ordering Provider: Balta Ahn MD Status: Completed (Past End Date/Time) Ordered On: 05/02/21 1526 Starts/Ends: 05/02/21 1600 - 05/01/212205 Dose (Remaining/Total): 0-250 mL (0/1) Route: intravenous Frequency: Once Rate/Duration: -- / -- Admin Instructions: Prime blood tubing and administer amount needed to clear line (usually 50-100 mL) after transfusion complete. Timestamps Action Dose / Rate / Duration Route / Site / Linked Line Other Information 05/01/212205 New Bag -- -- Performed by: Shailesh Talbert RN Comments: for iabp calcium gluconate 2 g/100 mL in sodium chloride (premix) solution 2 g [[id number]] Ordering Provider: Wally Aguilar DO Status: Completed (Past End Date/Time) Ordered On: 05/02/212232 Starts/Ends: 05/02/212314 - 05/02/21 234 Dose (Remaining/Total): 2 g (0/1) Route: intravenous Frequency: Once Rate/Duration: -- / 60 Minutes Admin Instructions: Room temperature only Line Med Link Info Comment Peripheral IV 05/01/21 20 G Right Antecubital 05/02/212242 by Jessica Adams RN -- Timestamps Action Dose / Duration Route Other Information 05/02/212242 New Bag 2 g 60 Minutes intravenous Performed by: Jessica Adams RN Scanned Package: 53356-959-03 potassium chloride ER (KLOR-CON) extended release tablet 40 mEq [[id number]] Ordering Provider: Wally Aguilar DO Status: Completed (Past End Date/Time) Ordered On: 05/02/212232 Starts/Ends: 05/02/212314 - 05/02/212241 Dose (Remaining/Total): 40 mEq (0/1) Route: oral Frequency: Once Rate/Duration: -- / -- Admin Instructions: Do not crush, chew, cut, dissolve, open or otherwise manipulate tablet/capsule. Timestamps Action Dose Route Other Information 05/02/212241 Given 40 mEq oral Performed by: Jessica Adams RN Scanned Package: 9086-5196-97, 4006-5504-48 diazePAM (VALIUM) injection 5 mg [[id number]] Ordering Provider: Nimesh Evans MD Status: Completed (Past End Date/Time) Ordered On: 05/04/21 0703 Starts/Ends: 05/04/21 0745 - 05/04/21 0746 Dose (Remaining/Total): 5 mg (0/1) Route: intravenous Frequency: Once Rate/Duration: -- / 1 Minutes Timestamps Action Dose / Duration Route Other Information 05/04/21 0745 Given 5 mg 1 Minutes intravenous Performed by: Sandra Farmer RN Scanned Package: 9550-0370-60 magnesium sulfate 4 g/100 mL in water (premix) 4 g [[id number]] Ordering Provider: Rhina Granados MD Status: Completed (Past End Date/Time) Ordered On: 05/04/21 0716 Starts/Ends: 05/04/21 0800 - 05/04/21 0948 Dose (Remaining/Total): 4 g (0/1) Route: intravenous Frequency: Once Rate/Duration: -- / 90 Minutes Timestamps Action Dose / Duration Route Other Information 05/04/21 0818 New Bag 4 g 90 Minutes intravenous Performed by: Sandra Farmer RN Scanned Package: 68038-255-92 sodium chloride 0.9% irrigation 1,000 mL [[id number]] Ordering Provider: Edward Trejo DO Status: Completed (Past End Date/Time) Ordered On: 05/04/2136 Starts/Ends: 05/04/21 1015 - 05/04/2136 Dose (Remaining/Total): 1,000 mL (0/1) Route: irrigation Frequency: Once Rate/Duration: -- / -- Timestamps Action Dose Route Other Information 05/04/21935 Given 1,000 mL irrigation Performed by: Tereza Encinas RN Scanned Package: 6124-3272-22 diazePAM (VALIUM) injection 5 mg [[id number]] Ordering Provider: Frank Dugan MD Status: Completed (Past End Date/Time) Ordered On: 05/04/21951 Starts/Ends: 05/04/21 1030 - 05/04/21 0953 Dose (Remaining/Total): 5 mg (0/1) Route: intravenous Frequency: Once Rate/Duration: -- / 1 Minutes Timestamps Action Dose / Duration Route Other Information 05/04/21951 Given 5 mg 1 Minutes intravenous Performed by: Tereza Encinas RN lidocaine (GLYDO) 2 % jelly 200 mg [[id number]] Ordering Provider: Frank Dugan MD Status: Completed (Past End Date/Time) Ordered On: 05/04/21 1023 Starts/Ends: 05/04/21 1100 - 05/04/21 1119 Dose (Remaining/Total): 10 mL (0/1) Route: urethral Frequency: Once Rate/Duration: -- / -- Timestamps Action Dose Route Other Information 05/04/21 111 Given 200 mg urethral Performed by: Tereza Encinas RN Scanned Package: [address]-5 electrolyte-A (PLASMA-LYTE) bolus [[id number]] Ordering Provider: Rhina Granados MD Status: Completed (Past End Date/Time) Ordered On: 05/04/21 1455 Frequency: Continuous PRN Timestamps Action Dose Route / Site Other Information 05/04/21 145 New Bag 1,000 mL irrigation Surgical Site Performed by: Rhina Granados MD Documented by: Jess Hanley, DEEPIKA sodium chloride 0.9% flush 0.5-20 mL [[id number]] Ordering Provider: Rhina Granados MD Status: Verified Ordered On: 05/04/212112 Start: 05/04/212199 Dose (Remaining/Total): 0.5-20 mL (--/--) Route: intra-catheter Frequency: Every 8 hours scheduled Rate/Duration: -- / -- Admin Instructions: Flush volume based on line type and size. Timestamps Action Dose Route Other Information 05/15/21 0654 Given 10 mL intra-catheter Performed by: Gabino Orantes RN Scanned Package: [id number] albumin 5 % bottle 25 g [[id number]] Ordering Provider: Rhina Granados MD Status: Completed (Past End Date/Time) Ordered On: 05/04/212112 Starts/Ends: 05/04/212144 - 05/04/212144 Dose (Remaining/Total): 25 g (0/1) Route: intravenous Frequency: Once Rate/Duration: -- / -- Timestamps Action Dose Route Other Information 05/04/212144 Given 25 g intravenous Performed by: Betty Rogers RN Scanned Package: [address]-2 docusate sodium (COLACE) capsule 100 mg [[id number]] Ordering Provider: Rhina Granados MD Status: Dispensed Ordered On: 05/04/212112 Start: 05/05/21 09 Dose (Remaining/Total): 100 mg (--/--) Route: oral Frequency: 2 times daily Rate/Duration: -- / -- Admin Instructions: If able to swallow medications. Hold for diarrhea. Timestamps Action Dose Route Other Information 05/15/21 0944 Given 100 mg oral Performed by: Charo Girard RN Scanned Package: 1181-3881-70 vancomycin 1500 mg/250 mL in sodium chloride 0.9% (premix) 1,500 mg [[id number]] Ordering Provider: Rhina Granados MD Status: Completed (Past End Date/Time) Ordered On: 05/04/212112 Starts/Ends: 05/05/21 0200 - 05/06/21 0341 Dose (Remaining/Total): 1,500 mg (0/3) Route: intravenous Frequency: Every 12 hours Rate/Duration: -- / 90 Minutes Admin Instructions: Start 12 hours after pre-operative dose. Line Med Link Info Comment Introducer 05/04/21 Right Internal jugular 05/05/21 1332 by Yecenia Michaels RN -- Timestamps Action Dose / Duration Route Other Information 05/06/21 0211 New Bag 1,500 mg 90 Minutes intravenous Performed by: Vanessa Holt RN Scanned Package: 80264-185-04, 0469-3054-85 magnesium sulfate 2 g/50 mL in water (premix) 2 g [[id number]] Ordering Provider: Rhina Granados MD Status: Completed (Past End Date/Time) Ordered On: 05/04/212140 Starts/Ends: 05/04/212214 - 05/04/21 230 Dose (Remaining/Total): 2 g (0/1) Route: intravenous Frequency: Once Rate/Duration: -- / 60 Minutes Timestamps Action Dose / Duration Route Other Information 05/04/212199 New Bag 2 g 60 Minutes intravenous Performed by: Betty Rogers RN Scanned Package: 93306-521-37 calcium gluconate 2 g/100 mL in sodium chloride (premix) solution 2 g [[id number]] Ordering Provider: Rhina Granados MD Status: Completed (Past End Date/Time) Ordered On: 05/04/212145 Starts/Ends: 05/04/212229 - 05/05/21 0023 Dose (Remaining/Total): 2 g (0/1) Route: intravenous Frequency: Once Rate/Duration: -- / 60 Minutes Admin Instructions: Room temperature only Timestamps Action Dose / Duration Route Other Information 05/04/21 232 New Bag 2 g 60 Minutes intravenous Performed by: Betty Rogers RN Scanned Package: 77449-540-22 calcium gluconate 2 g/100 mL in sodium chloride (premix) solution 2 g [[id number]] Ordering Provider: Rhina Granados MD Status: Completed (Past End Date/Time) Ordered On: 05/05/21 0028 Starts/Ends: 05/05/21 0100 - 05/05/21 0226 Dose (Remaining/Total): 2 g (0/1) Route: intravenous Frequency: Once Rate/Duration: -- / 60 Minutes Admin Instructions: Room temperature only Timestamps Action Dose / Duration Route Other Information 05/05/21 0126 New Bag 2 g 60 Minutes intravenous Performed by: Betty Rogers RN Scanned Package: 78451-432-44 magnesium sulfate 2 g/50 mL in water (premix) 2 g [[id number]] Ordering Provider: Rhina Granados MD Status: Completed (Past End Date/Time) Ordered On: 05/05/21 0514 Starts/Ends: 05/05/21 0545 - 05/05/21 0718 Dose (Remaining/Total): 2 g (0/1) Route: intravenous Frequency: Once Rate/Duration: -- / 60 Minutes Timestamps Action Dose / Duration Route Other Information 05/05/21617 New Bag 2 g 60 Minutes intravenous Performed by: Betty Rogers RN Scanned Package: 88279-742-80 calcium gluconate 2 g/100 mL in sodium chloride (premix) solution 2 g [[id number]] Ordering Provider: Wally Aguilar DO Status: Completed (Past End Date/Time) Ordered On: 05/05/21 05 Starts/Ends: 05/05/21 06 - 05/05/21 0718 Dose (Remaining/Total): 2 g (0/1) Route: intravenous Frequency: Once Rate/Duration: -- / 60 Minutes Admin Instructions: Room temperature only Timestamps Action Dose / Duration Route Other Information 05/05/21617 New Bag 2 g 60 Minutes intravenous Performed by: Betty Rogers RN Scanned Package: 70552-656-53 ketorolac (TORADOL) injection 30 mg [[id number]] Ordering Provider: Rhina Granados MD Status: Completed (Past End Date/Time) Ordered On: 05/05/21 1754 Starts/Ends: 05/05/21 1830 - 05/06/21 1155 Dose (Remaining/Total): 30 mg (0/4) Route: intravenous Frequency: Every 6 hours Rate/Duration: -- / -- Admin Instructions: For Adult IV push, administer over 15 seconds Line Med Link Info Comment Introducer 05/04/21 Right Internal jugular 05/05/211837 by Yecenia Michaels RN -- Timestamps Action Dose Route Other Information 05/06/21 115 Given 30 mg intravenous Performed by: Yecenia Michaels RN Scanned Package: 17794-162-50 sodium chloride 0.9% 0.9% infusion - ADS Override Pull [[id number]] Status: Completed (Past End Date/Time) Ordered On: 05/06/21907 Starts/Ends: 05/06/21907 - 05/06/21 09 Dose (Remaining/Total): -- (0/1) Route: -- Frequency: -- Rate/Duration: -- / -- Admin Instructions: Yecenia Michaels: cabinet override Note to pharmacy: Yecenia Michaels: cabinet override Timestamps Action Dose Route / Site / Linked Line Other Information 05/06/21920 New Bag 500 mL -- Performed by: Yecenia Michaels RN Scanned Package: 4670-5272-59 fentaNYL (SUBLIMAZE) preservative free injection 50 mcg [[id number]] Ordering Provider: Rhina Granados MD Status: Completed (Past End Date/Time) Ordered On: 05/06/211123 Starts/Ends: 05/06/21 1200 - 05/06/21 112 Dose (Remaining/Total): 50 mcg (0/1) Route: intravenous Frequency: Once Rate/Duration: -- / -- Timestamps Action Dose Route Other Information 05/06/211127 Given 50 mcg intravenous Performed by: Yecenia Michaels RN Scanned Package: 25004-974-10 calcium gluconate 2 g/100 mL in sodium chloride (premix) solution 2 g [[id number]] Ordering Provider: Rhina Granados MD Status: Completed (Past End Date/Time) Ordered On: 05/06/21 1444 Starts/Ends: 05/06/21 1515 - 05/06/21 162 Dose (Remaining/Total): 2 g (0/1) Route: intravenous Frequency: Once Rate/Duration: -- / 60 Minutes Admin Instructions: Room temperature only Line Med Link Info Comment Introducer 05/04/21 Right Internal jugular 05/06/21 152 by Yecenia Michaels RN -- Timestamps Action Dose / Duration Route Other Information 05/06/21 152 New Bag 2 g 60 Minutes intravenous Performed by: Yecenia Michaels RN Scanned Package: 08594-057-41 potassium chloride 40 mEq/100 mL in sterile water (premix) 40 mEq [[id number]] Ordering Provider: Rhina Granados MD Status: Completed (Past End Date/Time) Ordered On: 05/06/211443 Starts/Ends: 05/06/211514 - 05/06/21 1921 Dose (Remaining/Total): 40 mEq (0/1) Route: intravenous Frequency: Once Rate/Duration: 25 mL/hr / 4 Hours Admin Instructions: Central line only Line Med Link Info Comment Introducer 05/04/21 Right Internal jugular 05/06/21 152 by Yecenia Michaels RN -- Timestamps Action Dose / Rate / Duration Route Other Information 05/06/211520 New Bag 40 mEq 25 mL/hr 4 Hours intravenous Performed by: Yecenia Michaels RN Scanned Package: 1561-8404-[address] (PROTONIX) extended release tablet 40 mg [[id number]] Ordering Provider: Rhina Granados MD Status: Dispensed Ordered On: 05/06/21 1456 Start: 05/07/21 0900 Dose (Remaining/Total): 40 mg (--/--) Route: oral Frequency: Daily Rate/Duration: -- / -- Admin Instructions: Do not crush, chew, cut, dissolve, open or otherwise manipulate tablet/capsule. Timestamps Action Dose Route Other Information 05/15/21 0945 Given 40 mg oral Performed by: Charo Girard RN Scanned Package: 28060-518-33 potassium chloride ER (KLOR-CON) extended release tablet 30 mEq [[id number]] Ordering Provider: Wally Aguilar DO Status: Completed (Past End Date/Time) Ordered On: 05/07/21 0550 Starts/Ends: 05/07/21629 - 05/07/21 100 Dose (Remaining/Total): 30 mEq (0/2) Route: oral Frequency: Every 4 hours Rate/Duration: -- / -- Admin Instructions: Total dose = 60 mEq Do not crush, chew, cut, dissolve, open or otherwise manipulate tablet/capsule. Timestamps Action Dose Route Other Information 05/07/21 100 Given 30 mEq oral Performed by: Romeo Nagel RN Scanned Package: 0098-0010-16, 0841-0577-96 magnesium sulfate 2 g/50 mL in water (premix) 2 g [[id number]] Ordering Provider: Wally Aguilar DO Status: Completed (Past End Date/Time) Ordered On: 05/07/21 0551 Starts/Ends: 05/07/21629 - 05/07/21 07 Dose (Remaining/Total): 2 g (0/1) Route: intravenous Frequency: Once Rate/Duration: -- / 60 Minutes Line Med Link Info Comment Introducer 05/04/21 Right Internal jugular 05/07/21625 by Paresh Tobias RN -- Timestamps Action Dose / Duration Route Other Information 05/07/21625 New Bag 2 g 60 Minutes intravenous Performed by: Paresh Tobias RN Scanned Package: 33383-671-69 enoxaparin (LOVENOX) syringe 40 mg [[id number]] Ordering Provider: Rhina Granados MD Status: Dispensed Ordered On: 05/07/21 0805 Start: 05/07/21 2100 Dose (Remaining/Total): 40 mg (--/--) Route: subcutaneous Frequency: Daily (for enoxaparin) Rate/Duration: -- / -- Timestamps Action Dose Route / Site Other Information 05/10/212140 Given 40 mg subcutaneous Right Lower Abdomen Performed by: Devonte Ward RN Scanned Package: 95386-977-59 magnesium sulfate 2 g/50 mL in water (premix) 2 g [[id number]] Ordering Provider: Nimesh Evans MD Status: Completed (Past End Date/Time) Ordered On: 05/07/21 0810 Starts/Ends: 05/07/21 0845 - 05/07/21 1059 Dose (Remaining/Total): 2 g (0/1) Route: intravenous Frequency: Once Rate/Duration: -- / 60 Minutes Timestamps Action Dose / Duration Route Other Information 05/07/21 0959 New Bag 2 g 60 Minutes intravenous Performed by: Romeo Nagel RN Scanned Package: 83063-872-73 metOLazone (ZAROXOLYN) tablet 10 mg [[id number]] Ordering Provider: Laly Lopes MD Status: Completed (Past End Date/Time) Ordered On: 05/07/21822 Starts/Ends: 05/07/21899 - 05/07/21 0958 Dose (Remaining/Total): 10 mg (0/1) Route: oral Frequency: Once Rate/Duration: -- / -- Timestamps Action Dose Route Other Information 05/07/21957 Given 10 mg oral Performed by: Romeo Nagel RN Scanned Package: 6158-3876-92 atorvastatin (LIPITOR) tablet 80 mg [[id number]] Ordering Provider: Rhina Granados MD Status: Dispensed Ordered On: 05/07/21 1001 Start: 05/07/21 1000 Dose (Remaining/Total): 80 mg (--/--) Route: oral Frequency: Nightly Rate/Duration: -- / -- Timestamps Action Dose Route Other Information 05/14/212207 Given 80 mg oral Performed by: Gabino Orantes RN Scanned Package: 7031-0506-12 sodium chloride 0.9% 0.9% infusion - ADS Override Pull [[id number]] Status: Completed (Past End Date/Time) Ordered On: 05/07/211952 Starts/Ends: 05/07/211952 - 05/07/212036 Dose (Remaining/Total): -- (0/1) Route: -- Frequency: -- Rate/Duration: -- / -- Admin Instructions: Created by cabinet override Note to pharmacy: Created by cabinet override Timestamps Action Dose / Rate / Duration Route / Site / Linked Line Other Information 05/07/212036 New Bag -- -- Performed by: Tiana Ornelas RN magnesium sulfate 2 g/50 mL in water (premix) 2 g [[id number]] Ordering Provider: Nimesh Evans MD Status: Completed (Past End Date/Time) Ordered On: 05/08/21 0802 Starts/Ends: 05/08/21 0845 - 05/08/21 0950 Dose (Remaining/Total): 2 g (0/1) Route: intravenous Frequency: Once Rate/Duration: -- / 60 Minutes Timestamps Action Dose / Duration Route Other Information 05/08/21 0850 New Bag 2 g 60 Minutes intravenous Performed by: Romeo Nagel RN Scanned Package: 41138-510-25 guaiFENesin ER (MUCINEX) extended release tablet 600 mg [[id number]] Ordering Provider: Tiana Spence NP Status: Dispensed Ordered On: 05/08/21 1621 Start: 05/08/21 2100 Dose (Remaining/Total): 600 mg (--/--) Route: oral Frequency: 2 times daily Rate/Duration: -- / -- Admin Instructions: Do not crush, chew, cut, dissolve, open or otherwise manipulate tablet/capsule. 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) Rate/Duration: -- / -- (No admins scheduled or recorded for this medication) metOLazone (ZAROXOLYN) tablet 10 mg [[id number]] Ordering Provider: Rhina Granados MD Status: Completed (Past End Date/Time) Ordered On: 05/09/21912 Starts/Ends: 05/09/2145 - 05/09/21 113 Dose (Remaining/Total): 10 mg (0/1) Route: oral Frequency: Once Rate/Duration: -- / -- Timestamps Action Dose Route Other Information 05/09/21 1132 Given 10 mg oral Performed by: Hyacinth Hurt RN Scanned Package: [id number] acetaminophen (TYLENOL) tablet 650 mg [[id number]] Ordering Provider: Eleonora Duarte NP Status: Dispensed Ordered On: 05/09/21914 Start: 05/09/21914 Dose (Remaining/Total): 650 mg (--/--) Route: oral Frequency: Every 6 hours PRN Rate/Duration: -- / -- Timestamps Action Dose Route Other Information 05/14/212230 Given 650 mg oral Performed by: Gabino Orantes RN Scanned Package: 13419-386-41, 26132-199-21 al & mag hydroxide nwzynplzjzn-paclobfzdwhxwhp-khdgedpqi-nystatin (MAGIC MOUTHWASH) suspension 1-1-1-1 [[id number]] Ordering Provider: Tiana Spence NP Status: Verified Ordered On: 05/09/211114 Start: 05/09/21 111 Dose (Remaining/Total): 20 mL (--/--) Route: swish & spit Frequency: Every 4 hours PRN Rate/Duration: -- / -- Timestamps Action Dose Route Other Information 05/12/21 1457 Given 20 mL swish & spit Performed by: Cale Bender RN polyethylene glycol (MIRALAX) packet 17 g [[id number]] Ordering Provider: Rhina Granados MD Status: Dispensed Ordered On: 05/09/211123 Start: 05/09/21 2100 Dose (Remaining/Total): 17 g (--/--) Route: oral Frequency: 2 times daily Rate/Duration: -- / -- Timestamps Action Dose Route Other Information 05/15/21 0949 Given 17 g oral Performed by: Charo Girard RN Scanned Package: 15209-189-94 albumin 5 % bottle 25 g [[id number]] Ordering Provider: Rhina Granados MD Status: Completed (Past End Date/Time) Ordered On: 05/10/21 0553 Starts/Ends: 05/10/21629 - 05/10/21604 Dose (Remaining/Total): 25 g (0/1) Route: intravenous Frequency: Once Rate/Duration: -- / -- Admin Instructions: Infusion rate depends on indication and clinical situation. Suggested initialrate - 120 mL/hr. In patients with normal plasma volume, do not exceed 2 mL/minute Line Med Link Info Comment Introducer 05/04/21 Right Internal jugular 05/10/21 06 by Devonte Ward RN -- Timestamps Action Dose Route Other Information 05/10/21604 Given 25 g intravenous Performed by: Devonte Ward RN Scanned Package: [id number] piperacillin-tazobactam (ZOSYN) 3.375 g in sodium chloride 0.9% 100 mL IVPB [[id number]] Ordering Provider: Eleonora Duarte NP Status: Dispensed Ordered On: 05/10/21 1229 Start: 05/10/21 1300 Dose (Remaining/Total): 3.375 g (--/--) Route: intravenous Frequency: Every 6 hours scheduled Rate/Duration: 200 mL/hr / 30 Minutes Admin Instructions: Mini-Bag Plus bag Line Med Link Info Comment Introducer 05/04/21 Right Internal jugular 05/11/21 0118 by Devonte Ward RN -- Timestamps Action Dose / Rate / Duration Route Other Information 05/15/21 0654 New Bag 3.375 g 200 mL/hr 30 Minutes intravenous Performed by: Gabino Orantes RN Scanned Package: [id number], 80233-844-03 potassium chloride ER (KLOR-CON) extended release tablet 20 mEq [[id number]] Ordering Provider: Eleonora Duarte NP Status: Dispensed Ordered On: 05/10/21 1230 Start: 05/10/21 2100 Dose (Remaining/Total): 20 mEq (--/--) Route: oral Frequency: 2 times daily Rate/Duration: -- / -- Admin Instructions: Do not crush, chew, cut, dissolve, open or otherwise manipulate tablet/capsule. Timestamps Action Dose Route Other Information 05/15/21944 Given 20 mEq oral Performed by: Charo Girard RN aspirin enteric coated tablet 81 mg [[id number]] Ordering Provider: Varsha Crowder NP Status: Dispensed Ordered On: 05/11/211116 Start: 05/12/21899 Dose (Remaining/Total): 81 mg (--/--) Route: oral Frequency: Daily Rate/Duration: -- / -- Admin Instructions: Do not crush, chew, cut, dissolve, open or otherwise manipulate tablet/capsule. Timestamps Action Dose Route Other Information 05/15/21944 Given 81 mg oral Performed by: Charo Girard RN Scanned Package: [id number] dextrose oral liquid liquid 15 g [[id number]] Ordering Provider: Anibal Lara MD Status: Verified Ordered On: 05/11/211134 Start: 05/11/211133 Dose (Remaining/Total): 15 g (--/--) Route: oral Frequency: Every 15 min PRN Rate/Duration: -- / -- Admin Instructions: If patient is alert and able to eat/drink, give 15 gm glucose or one juice (4 fluid ounces) NOT ORANGE JUICE. After treatment for hypoglycemia, recheck BG followed by treatment every 15 minutes until the BG is greater than 100 mg/dL. Then check BG 1 hour post-treatment. If BG isless than 100 mg/dL, repeat Q15 minute BG checks and treatment. Call MD for each episode of hypoglycemia. (No admins scheduled or recorded for this medication) dextrose (D10W) 10% bolus 250 mL [[id number]] Ordering Provider: Anibal Lara MD Status: Verified Ordered On: 05/11/211134 Start: 05/11/211133 Dose (Remaining/Total): 250 mL (--/--) Route: intravenous Frequency: Every 15 min PRN Rate/Duration: 1,000 mL/hr / 15 Minutes Admin Instructions: After treatment for hypoglycemia, recheck BG followed by treatment every 15 minutes until the BG is greater than 100 mg/dL. Then check BG 1 hour post treatment. If BG is less wiem367 mg/dL, repeat Q15 minute BG checks and treatment. Call MD for each episode of hypoglycemia. (No admins scheduled or recorded for this medication) glucagon injection 1 mg [[id number]] Ordering Provider: Anibal Lara MD Status: Verified Ordered On: 05/11/211134 Start: 05/11/211133 Dose (Remaining/Total): 1 mg (--/--) Route: intramuscular Frequency: Every 30 min PRN Rate/Duration: -- / -- Admin Instructions: After Glucagon is administered, position patient on side if possible to avoid aspiration. Obtain IV access. Follow glucagon treatment with glucose treatment or IV dextrose. After treatment for hypoglycemia, recheck BG followed by treatment every 15 minutes until the BG isgreater than 100 mg/dL. Then check BG 1 hour post treatment. If BG is less than 100 mg/dL, repeat Q15 minute BG checks and treatment. Call MD for each episode of hypoglycemia. Reconstitute 1 mg vial with 1 mL SWFI. Use immediately following reconstitution. (No admins scheduled or recorded for this medication) insulin lispro (HumaLOG, ADMELOG) 100 unit/mL injection 0-10 Units [[id number]] Ordering Provider: Anibal Lara MD Status: Verified Ordered On: 05/11/211134 Start: 05/11/211214 Dose (Remaining/Total): 0-10 Units (--/--) Route: subcutaneous Frequency: 3 times daily with meals Rate/Duration: -- / -- Admin Instructions: Blood glucose mg/dL: 149 or less: No insulin 150-199: add 2 unit 200-249: add 4 units 250-299: add 6 units 300-349: add 8 units and notify physician for adjustment of insulin orders. 350-399: add 10 units and notify physician for adjustment of insulin orders. Over 400: Notify physician for adjustment of insulin orders. Do NOT hold for NPO Status Timestamps Action Dose Route / Site Other Information 05/14/21 1713 Given 4 Units subcutaneous Left Upper Arm Performed by: Samantha Heaton RN Scanned Package: [id number] insulin lispro (HumaLOG, ADMELOG) 100 unit/mL injection 0-5 Units [[id number]] Ordering Provider: Anibal Lara MD Status: Verified Ordered On: 05/11/21 1135 Start: 05/11/21 2100 Dose (Remaining/Total): 0-5 Units (--/--) Route: subcutaneous Frequency: Nightly Rate/Duration: -- / -- Admin Instructions: Blood glucose mg/dL: 149 or less: No insulin 150-199: add 1 unit 200-249: add 2 units 250-299: add 3 units 300-349: add 4 units and notify physician for adjustment of insulin orders. 350-399: add 5 units and notify physician for adjustment of insulin orders. Over 400: Notify physician for adjustment of insulin orders. Do NOT hold for NPO Status Timestamps Action Dose Route / Site Other Information 05/13/212019 Given 1 Units subcutaneous Left Lower Abdomen Performed by: Marcel López RN Scanned Package: [id number] acetaminophen (TYLENOL) tablet 1,000 mg [[id number]] Ordering Provider: Robby Suárez MD Status: Dispensed (Past End Date/Time) Ordered On: 05/12/21 0644 Starts/Ends: 05/12/21 0715 - 05/13/21 0715 Dose (Remaining/Total): 1,000 mg (1) Route: oral Frequency: Once Rate/Duration: -- / -- (No admins scheduled or recorded for this medication) QUEtiapine (SEROquel) tablet 50 mg [[id number]] Ordering Provider: Laly Lopes MD Status: Completed (Past End Date/Time) Ordered On: 05/12/21 0259 Starts/Ends: 05/12/21 0330 - 05/12/21 0305 Dose (Remaining/Total): 50 mg (01) Route: oral Frequency: Once Rate/Duration: -- / -- Timestamps Action Dose Route Other Information 05/12/21 030 Given 50 mg oral Performed by: Natalie Mayer RN Scanned Package: [id number] QUEtiapine (SEROquel) tablet 25 mg [[id number]] Ordering Provider: Varsha Crowder NP Status: Dispensed Ordered On: 05/12/21 1058 Start: 05/13/21 0900 Dose (Remaining/Total): 25 mg (--/--) Route: oral Frequency: Daily Rate/Duration: -- / -- Timestamps Action Dose Route Other Information 05/15/21 0948 Given 25 mg oral Performed by: Charo Girard RN Scanned Package: [id number] QUEtiapine (SEROquel) tablet 50 mg [[id number]] Ordering Provider: Varsha Crowder NP Status: Dispensed Ordered On: 05/12/21 1059 Start: 05/12/21 2100 Dose (Remaining/Total): 50 mg (--/--) Route: oral Frequency: Nightly Rate/Duration: -- / -- Timestamps Action Dose Route Other Information 05/14/212208 Given 50 mg oral Performed by: Gabino Orantes RN Scanned Package: 0194-6265-50 haloperidol (HALDOL) injection 2 mg [[id number]] Ordering Provider: Varsha Crowder NP Status: Verified Ordered On: 05/12/21 163 Start: 05/12/21 163 Dose (Remaining/Total): 2 mg (--/--) Route: intramuscular Frequency: Every 8 hours PRN Rate/Duration: -- / -- Admin Instructions: If administered IV push, administer over 5 min for adults (No admins scheduled or recorded for this medication) insulin glargine (LANTUS, SEMGLEE) 100 unit/mL injection 24 Units [[id number]] Ordering Provider: Sixto Fish MD Status: Verified Ordered On: 05/13/21 173 Start: 05/13/212099 Dose (Remaining/Total): 24 Units (--/--) Route: subcutaneous Frequency: Nightly Rate/Duration: -- / -- Admin Instructions: Do not hold if NPO. Do not mix with other insulins Timestamps Action Dose Route / Site Other Information 05/14/212217 Given 24 Units subcutaneous Left Lower Abdomen Performed by: Gabino Orantes RN Scanned Package: 7626-3598-72 insulin lispro (HumaLOG, ADMELOG) 100 unit/mL injection 10 Units [[id number]] Ordering Provider: Sixto Fish MD Status: Verified Ordered On: 05/13/21 1735 Start: 05/14/21 0800 Dose (Remaining/Total): 10 Units (--/--) Route: subcutaneous Frequency: 3 times daily with meals Rate/Duration: -- / -- Admin Instructions: If BG greater than or equal to [...] eat, or if BG less than 70 mg/dL. Timestamps Action Dose Route / Site Other Information 05/14/21 171 Given 10 Units subcutaneous Left Upper Arm Performed by: Samantha Heaton RN Scanned Package: [id number] metoprolol tartrate (LOPRESSOR) immediate release tablet 12.5 mg [[id number]] Ordering Provider: Eleonora Duarte NP Status: Dispensed Ordered On: 05/14/21 1043 Start: 05/14/21 2100 Dose (Remaining/Total): 12.5 mg (--/--) Route: oral Frequency: 2 times daily Rate/Duration: -- / -- Admin Instructions: HOLD FOR HR <60 and systolic <110 (No admins scheduled or recorded for this medication) furosemide (LASIX) 10 mg/mL injection 40 mg [[id number]] Ordering Provider: Laly Lopes MD Status: Verified Ordered On: 05/15/21 0922 Start: 05/15/21 1600 Dose (Remaining/Total): 40 mg (--/--) Route: intravenous Frequency: 2 times daily (for diuretics) Rate/Duration: -- / -- Admin Instructions: For IV push: administer doses < 160 mg at a rate of 20 -40 mg/min. Doses >/= 160 mg should be administered no faster than 4 mg/min. Room temperature only (No admins scheduled or recorded for this medication) potassium chloride ER (KLOR-CON) extended release tablet 40 mEq [[id number]] Ordering Provider: Tiana Spence NP Status: Completed (Past End Date/Time) Ordered On: 05/15/21940 Starts/Ends: 05/15/211014 - 05/15/2148 Dose (Remaining/Total): 40 mEq (0/1) Route: oral Frequency: Once Rate/Duration: -- / -- Admin Instructions: GIVEN IN ADDITION TO SCHEDULED KCL Do not crush, chew, cut, dissolve, open orotherwise manipulate tablet/capsule. Timestamps Action Dose Route Other Information 05/15/21947 Given 40 mEq oral Performed by: Charo Girard RN Scanned Package: [id number], 7791-8253-77 magnesium sulfate 2 g/50 mL in water (premix) 2 g [[id number]] Ordering Provider: Tiana Spence NP Status: Completed (Past End Date/Time) Ordered On: 05/15/21940 Starts/Ends: 05/15/211014 - 05/15/21 104 Dose (Remaining/Total): 2 g (0/1) Route: intravenous Frequency: Once Rate/Duration: -- / 60 Minutes Line Med Link Info Comment Introducer 05/04/21 Right Internal jugular 05/15/21947 by Charo Girard RN -- Timestamps Action Dose / Duration Route Other Information 05/15/21947 New Bag 2 g 60 Minutes intravenous Performed by: Charo Girard RN Scanned Package: [id number] , Wound Info Only Patient Lines/Drains/Airways Status Active Wound / Pressure ulcer / Jerry / Negative Pressure Wound None , Vitals Info Only Vital Signs Report 05/14 0705/15 0659 05/15 0705/15 1110 Most Recent Temp (??C) 36.4 - 37 37 37 (98.6) 05/15 741 Pulse 74 - 87 93 93 05/15 741 Resp 11 - 33 18 18 05/15 741 SpO2 (%) 88 - 97 90 90 05/15 741 BP 80/57 - 117/60 105/68 105/68 05/15 741 MAP (mmHg) 60 - 75 81 81 11/26 0741 , Oxygen Info Only Default Flowsheet Data (most recent) Endurance Tests No documentation. Default Flowsheet Data (last 48 hours) Oxygen Row Name 05/15/21 0925 05/15/21 0741 05/15/21 0338 05/14/21 2321 05/14/21 2231 Oxygen Therapy/Pulse Ox O2 Therapy Supplemental oxygen -- Supplemental oxygen Supplemental oxygen Supplemental oxygen O2 Del Method Nasal cannula -- Nasal cannula Nasal cannula Nasal cannula O2 Flow Rate (L/min) 4 L/min -- 5 L/min 5 L/min 5 L/min SpO2 -- 90 % 91 % 94 % -- Patient Activity -- -- -- -- At rest Row Name 05/14/21 1918 05/14/21 1440 05/14/21 1357 05/14/21 1355 05/14/21 1350 Oxygen Therapy/Pulse Ox O2 Therapy Supplemental oxygen -- Supplemental oxygen (P) -- -- O2 Del Method Nasal cannula -- Nasal cannula (P) -- -- O2 Flow Rate (L/min) 5 L/min -- 6 L/min (P) -- -- SpO2 93 % 90 % -- 90 % 88 % Patient Activity -- -- At rest (P) -- -- Row Name 05/14/21 1345 05/14/21 1340 05/14/21 1335 05/14/21 1320 05/14/21 1315 Oxygen Therapy/Pulse Ox SpO2 88 % 89 % 95 % 95 % 97 % Row Name 05/14/21 1203 05/14/21 0803 05/14/21 0421 05/14/21 0005 05/13/21 1933 Oxygen Therapy/Pulse Ox O2 Therapy -- -- Supplemental oxygen Supplemental oxygen Supplemental oxygen O2 Del Method -- -- Nasal cannula Nasal cannula Nasal cannula O2 Flow Rate (L/min) -- -- 6 L/min 6 L/min 6 L/min SpO2 91 % 90 % 90 % 90 % 92 % Row Name 05/13/21 1505 05/13/21 1251 Oxygen Therapy/Pulse Ox SpO2 64 % 99 % F FORESTER * Plan of Care - Gabino Orantes RN - 05/15/2021 4:18 AM CST Goals: Clinical Goals for the Shift: VSS, safety, comfort Summary: Problem: Health Behavior: Goal: Understanding of discharge needs will improve Outcome: Progressing Problem: Activity: Goal: Activity Intolerance will improve Outcome: Progressing Problem: Cardiac: Goal: Ability to achieve and maintain adequate cardiopulmonary perfusion will improve Outcome: Progressing Goal: Hemodynamic stability will improve Outcome: Progressing Goal: Will show no evidence of cardiac arrhythmias Outcome: Progressing Problem: Lack of Knowledge: Goal: Verbalization of understanding the information provided will improve Outcome: Progressing Problem: Coping: Goal: Ability to adjust to condition or change in health will improve Outcome: Progressing Goal: Ability to state activities that reduce stress will improve Outcome: Progressing Goal: Level of anxiety will decrease Outcome: Progressing Problem: Fluid Volume: Goal: Risk for excess fluid volume will decrease Outcome: Progressing Problem: Health Behavior: Goal: Identification of resources available to assist in meeting health care needs will improve Outcome: Progressing Goal: Compliance with treatment plan for underlying cause of condition will improve Outcome: Progressing Problem: Physical Regulation: Goal: Complications related to the disease process, condition or treatment will be avoided or minimized Outcome: Progressing Goal: Diagnostic test results will improve Outcome: Progressing Problem: Sensory: Goal: General experience of comfort will improve Outcome: Progressing Goal: Satisfaction with pain management regimen will improve Outcome: Progressing Problem: Activity: Goal: Mobility will improve Outcome: Progressing Problem: Lack of Knowledge: Goal: Understanding of ways to prevent future skin breakdown will improve Outcome: Progressing Goal: Ability to identify appropriate dietary choices will improve Outcome: Progressing Problem: Nutritional: Goal: Dietary intake will improve Outcome: Progressing Goal: Ability to maintain a balanced intake and output will improve Outcome: Progressing Problem: Skin Integrity: Goal: Risk for impaired skin integrity will decrease Outcome: Progressing Goal: Ability to demonstrate warm and dry skin will improve Outcome: Progressing Goal: Circulation will improve to fullest extent possible Outcome: Progressing Problem: Lack of Knowledge: Goal: Ability to state ways to decrease the risk of falls will improve Outcome: Progressing Problem: Safety: Goal: Will remain free from falls Outcome: Progressing Goal: Will remain free from injury from falls Outcome: Progressing Goal: Will remain free from falls and injury in home environment Outcome: Progressing Problem: Respiratory: Goal: Ability to maintain a clear airway will improve Outcome: Progressing Goal: Ability to maintain adequate ventilation will improve Outcome: Progressing Problem: Activity: Goal: Risk for activity intolerance will decrease Outcome: Progressing Problem: Bowel/Gastric: Goal: Gastrointestinal status for postoperative course will improve Outcome: Progressing Goal: Ability to maintain normal bowel function will be supported Outcome: Progressing Problem: Cardiac: Goal: Hemodynamic stability will improve Outcome: Progressing Goal: Ability to maintain an adequate cardiac output will improve Outcome: Progressing Goal: Will show no signs and symptoms of excessive bleeding Outcome: Progressing Problem: Lack of Knowledge: Goal: Ability to demonstrate proper wound care will improve Outcome: Progressing Goal: Knowledge of disease or condition will improve Outcome: Progressing Goal: Knowledge of the prescribed therapeutic regimen will improve Outcome: Progressing Problem: Coping: Goal: Ability to adjust to condition or change in health will improve Outcome: Progressing Problem: Health Behavior: Goal: Identification of resources available to assist in meeting health care needs will improve Outcome: Progressing Problem: Nutritional: Goal: Risk for body nutrition deficit will decrease Outcome: Progressing Problem: Physical Regulation: Goal: Postoperative complications will be avoided or minimized Outcome: Progressing Goal: Diagnostic test results will improve Outcome: Progressing Problem: Respiratory: Goal: Levels of oxygenation will improve Outcome: Progressing Goal: Respiratory status will improve Outcome: Progressing Goal: Ability to tolerate decreased levels of ventilator support will improve Outcome: Progressing Problem: Sensory: Goal: Pain level will decrease Outcome: Progressing Problem: Skin Integrity: Goal: Demonstration of wound healing without infection will improve Outcome: Progressing Goal: Risk for impaired skin integrity will decrease Outcome: Progressing Problem: Tissue Perfusion: Goal: Risk factors for ineffective tissue perfusion will decrease Outcome: Progressing Goal: Risk of venous thrombosis will decrease Outcome: Progressing Problem: Urinary Elimination: Goal: Ability to achieve and maintain adequate urine output will improve Outcome: Progressing Goal: Ability to achieve and maintain adequate renal perfusion and functioning will improve Outcome: Progressing F FORESTER * Plan of Care - Samantha Heaton RN - 05/14/2021 3:36 PM CST Goals: Clinical Goals for the Shift: maintain NPO for possible procedure, comfort, safety, monitor breathing and V/S Summary: F FORESTER * Op Note - Braulio Ortega MD - 05/14/2021 11:35 AM CST Operative Report DATE OF SURGERY : 05/14/2021 SURGEON: Braulio Ortega MD SURGICAL TEAM: Surgeon(s) and Role: * Braulio Ortega MD - Primary ANESTHESIA: General PREOPERATIVE DIAGNOSIS: Clot retention History of bladder tumor POSTOPERATIVE DIAGNOSIS: Same as above, bleeding from previous bladder tumor resection site left of the ureteral orifice PROCEDURE: CYSTOSCOPY with clot evacuation and fulguration INDICATION FOR PROCEDURE: Patient with history of bladder tumor had a bladder tumor resection in an outside facility. She hadhematuria he recently had heart surgery he is not on blood thinners he had clot retention confirmedby CT scan yesterday. He was here for the above procedure risks and complications including possible additional procedures explained OPERATIVE FINDINGS: Approximately 500-600 mL of clots in the bladder evacuated. Bleeding from the previous tumor resection site approximately 3-4 cm in diameter which was fulgurated and hemostasis obtained. Twenty-two German [address] Osorio catheter PROCEDURE DETAILS: Patient seen in the preoperative holding area and antibiotic coverage with Zosyn brought into the operating room after induction of anesthesia placed in the cystolithotomy position. Extremities joints were carefully positioned and padded. Genitals perineum was sterilely prepped and draped. Initial cystoscopy showed irregular bulbar urethra possibly from previous catheter attempts with lot of edema around. Small occlusive prostate. Bladder showed a large amount of organized clots. This was evacuated after breaking with a resectoscope loop 26 German. Care was taken not to perforate the bladder.After extensive irrigation with the Ellik evacuator all the clots were removed. Ureteral orifices were normal bladder showed no evidence of any tumor. Bleeding was seen from the resection site approximately 3-4 cm with left of the ureteral orifice. This was fulgurated with the loop electrode. Hemostasis was confirmed. After this we placed a 22 German hematuria catheter with 10 mL in the balloon. CBI was not started as the urine looked very clear. Specimens: No specimens collected during this procedure. Estimated Blood Loss: Less than 50 mL. Intraoperative Fluids & Blood Products: Crystalloids The instruments, needle and sponge count were found to be correct. Complications: None Condition on Discharge from the operating room was stable Braulio Ortega MD Date: 05/14/2021 Time: 1:14 PM PRESENCE STATEMENT : I was present and directly participated in the entire procedure. F FORESTER * Plan of Care - Marcel López RN - 05/14/2021 1:34 AM CST Problem: Health Behavior: Goal: Understanding of discharge needs will improve Outcome: Progressing Problem: Activity: Goal: Activity Intolerance will improve Outcome: Progressing Problem: Cardiac: Goal: Ability to achieve and maintain adequate cardiopulmonary perfusion will improve Outcome: Progressing Goals: Clinical Goals for the Shift: maintain NPO for CT Abdomen Summary: F FORESTER * Plan of Care - Samantha Heaton RN - 05/13/2021 4:50 PM CST Goals: Clinical Goals for the Shift: maintain NPO for CT Abdomen Summary: F FORESTER * Plan of Care - Apryl Killian MSW - 05/13/2021 10:34 AM CST NURSING SERVICE DIRECTOR spoke with [facility] care this morning in regards to referral. [facility] states to NURSING SERVICE DIRECTOR they are not in network with pt.'s insurance. NURSING SERVICE DIRECTOR sent a referral to [facility]. NURSING SERVICE DIRECTOR will f/u. F FORESTER * Plan of Care - Natalie Mayer RN - 05/13/2021 6:48 AM CST Goals: Problem: Health Behavior: Goal: Understanding of discharge needs will improve Outcome: Progressing Problem: Activity: Goal: Activity Intolerance will improve Outcome: Progressing Problem: Cardiac: Goal: Ability to achieve and maintain adequate cardiopulmonary perfusion will improve Outcome: Progressing Goal: Hemodynamic stability will improve Outcome: Progressing Goal: Will show no evidence of cardiac arrhythmias Outcome: Progressing Problem: Lack of Knowledge: Goal: Verbalization of understanding the information provided will improve Outcome: Progressing Problem: Coping: Goal: Ability to adjust to condition or change in health will improve Outcome: Progressing Goal: Ability to state activities that reduce stress will improve Outcome: Progressing Goal: Level of anxiety will decrease Outcome: Progressing Problem: Fluid Volume: Goal: Risk for excess fluid volume will decrease Outcome: Progressing Problem: Health Behavior: Goal: Identification of resources available to assist in meeting health care needs will improve Outcome: Progressing Goal: Compliance with treatment plan for underlying cause of condition will improve Outcome: Progressing Problem: Physical Regulation: Goal: Complications related to the disease process, condition or treatment will be avoided or minimized Outcome: Progressing Goal: Diagnostic test results will improve Outcome: Progressing Problem: Sensory: Goal: General experience of comfort will improve Outcome: Progressing Goal: Satisfaction with pain management regimen will improve Outcome: Progressing Problem: Activity: Goal: Mobility will improve Outcome: Progressing Problem: Lack of Knowledge: Goal: Understanding of ways to prevent future skin breakdown will improve Outcome: Progressing Goal: Ability to identify appropriate dietary choices will improve Outcome: Progressing Problem: Nutritional: Goal: Dietary intake will improve Outcome: Progressing Goal: Ability to maintain a balanced intake and output will improve Outcome: Progressing Problem: Skin Integrity: Goal: Risk for impaired skin integrity will decrease Outcome: Progressing Goal: Ability to demonstrate warm and dry skin will improve Outcome: Progressing Goal: Circulation will improve to fullest extent possible Outcome: Progressing Problem: Lack of Knowledge: Goal: Ability to state ways to decrease the risk of falls will improve Outcome: Progressing Problem: Safety: Goal: Will remain free from falls Outcome: Progressing Goal: Will remain free from injury from falls Outcome: Progressing Goal: Will remain free from falls and injury in home environment Outcome: Progressing Problem: Respiratory: Goal: Ability to maintain a clear airway will improve Outcome: Progressing Goal: Ability to maintain adequate ventilation will improve Outcome: Progressing Problem: Activity: Goal: Risk for activity intolerance will decrease Outcome: Progressing Problem: Bowel/Gastric: Goal: Gastrointestinal status for postoperative course will improve Outcome: Progressing Goal: Ability to maintain normal bowel function will be supported Outcome: Progressing Problem: Cardiac: Goal: Hemodynamic stability will improve Outcome: Progressing Goal: Ability to maintain an adequate cardiac output will improve Outcome: Progressing Goal: Will show no signs and symptoms of excessive bleeding Outcome: Progressing Problem: Lack of Knowledge: Goal: Ability to demonstrate proper wound care will improve Outcome: Progressing Goal: Knowledge of disease or condition will improve Outcome: Progressing Goal: Knowledge of the prescribed therapeutic regimen will improve Outcome: Progressing Problem: Coping: Goal: Ability to adjust to condition or change in health will improve Outcome: Progressing Problem: Health Behavior: Goal: Identification of resources available to assist in meeting health care needs will improve Outcome: Progressing Problem: Nutritional: Goal: Risk for body nutrition deficit will decrease Outcome: Progressing Problem: Physical Regulation: Goal: Postoperative complications will be avoided or minimized Outcome: Progressing Goal: Diagnostic test results will improve Outcome: Progressing Problem: Respiratory: Goal: Levels of oxygenation will improve Outcome: Progressing Goal: Respiratory status will improve Outcome: Progressing Goal: Ability to tolerate decreased levels of ventilator support will improve Outcome: Progressing Problem: Sensory: Goal: Pain level will decrease Outcome: Progressing Problem: Skin Integrity: Goal: Demonstration of wound healing without infection will improve Outcome: Progressing Goal: Risk for impaired skin integrity will decrease Outcome: Progressing Problem: Tissue Perfusion: Goal: Risk factors for ineffective tissue perfusion will decrease Outcome: Progressing Goal: Risk of venous thrombosis will decrease Outcome: Progressing Problem: Urinary Elimination: Goal: Ability to achieve and maintain adequate urine output will improve Outcome: Progressing Goal: Ability to achieve and maintain adequate renal perfusion and functioning will improve Outcome: Progressing Clinical Goals for the Shift: VSS, comfort, safety, cardiac monitoring, F FORESTER * Plan of Care - Apryl Killian MSW - 05/12/2021 2:44 PM CST NURSING SERVICE DIRECTOR called pt.'s insurance ([facility]) ) to get home health care referrals on pt. [facility] and [facility] are in network with pt.'s insurance. NURSING SERVICE DIRECTOR sent home health care referrals to [facility]. NURSING SERVICE DIRECTOR will f/u. F FORESTER * Plan of Care - Cale Bender RN - 05/11/2021 6:57 PM CST Goals: Clinical Goals for the Shift: VSS, comfort, safety Problem: Health Behavior: Goal: Understanding of discharge needs will improve Outcome: Progressing Problem: Activity: Goal: Activity Intolerance will improve Outcome: Progressing Problem: Cardiac: Goal: Ability to achieve and maintain adequate cardiopulmonary perfusion will improve Outcome: Progressing Goal: Hemodynamic stability will improve Outcome: Progressing Goal: Will show no evidence of cardiac arrhythmias Outcome: Progressing Problem: Lack of Knowledge: Goal: Verbalization of understanding the information provided will improve Outcome: Progressing Problem: Coping: Goal: Ability to adjust to condition or change in health will improve Outcome: Progressing Goal: Ability to state activities that reduce stress will improve Outcome: Progressing Goal: Level of anxiety will decrease Outcome: Progressing Problem: Fluid Volume: Goal: Risk for excess fluid volume will decrease Outcome: Progressing Problem: Health Behavior: Goal: Identification of resources available to assist in meeting health care needs will improve Outcome: Progressing Goal: Compliance with treatment plan for underlying cause of condition will improve Outcome: Progressing Problem: Physical Regulation: Goal: Complications related to the disease process, condition or treatment will be avoided or minimized Outcome: Progressing Goal: Diagnostic test results will improve Outcome: Progressing Problem: Sensory: Goal: General experience of comfort will improve Outcome: Progressing Goal: Satisfaction with pain management regimen will improve Outcome: Progressing Problem: Activity: Goal: Mobility will improve Outcome: Progressing Problem: Lack of Knowledge: Goal: Understanding of ways to prevent future skin breakdown will improve Outcome: Progressing Goal: Ability to identify appropriate dietary choices will improve Outcome: Progressing Problem: Nutritional: Goal: Dietary intake will improve Outcome: Progressing Goal: Ability to maintain a balanced intake and output will improve Outcome: Progressing Problem: Skin Integrity: Goal: Risk for impaired skin integrity will decrease Outcome: Progressing Goal: Ability to demonstrate warm and dry skin will improve Outcome: Progressing Goal: Circulation will improve to fullest extent possible Outcome: Progressing Problem: Lack of Knowledge: Goal: Ability to state ways to decrease the risk of falls will improve Outcome: Progressing Problem: Safety: Goal: Will remain free from falls Outcome: Progressing Goal: Will remain free from injury from falls Outcome: Progressing Goal: Will remain free from falls and injury in home environment Outcome: Progressing Problem: Respiratory: Goal: Ability to maintain a clear airway will improve Outcome: Progressing Goal: Ability to maintain adequate ventilation will improve Outcome: Progressing Problem: Activity: Goal: Risk for activity intolerance will decrease Outcome: Progressing Problem: Bowel/Gastric: Goal: Gastrointestinal status for postoperative course will improve Outcome: Progressing Goal: Ability to maintain normal bowel function will be supported Outcome: Progressing Problem: Cardiac: Goal: Hemodynamic stability will improve Outcome: Progressing Goal: Ability to maintain an adequate cardiac output will improve Outcome: Progressing Goal: Will show no signs and symptoms of excessive bleeding Outcome: Progressing Problem: Lack of Knowledge: Goal: Ability to demonstrate proper wound care will improve Outcome: Progressing Goal: Knowledge of disease or condition will improve Outcome: Progressing Goal: Knowledge of the prescribed therapeutic regimen will improve Outcome: Progressing Problem: Coping: Goal: Ability to adjust to condition or change in health will improve Outcome: Progressing Problem: Health Behavior: Goal: Identification of resources available to assist in meeting health care needs will improve Outcome: Progressing Problem: Nutritional: Goal: Risk for body nutrition deficit will decrease Outcome: Progressing Problem: Physical Regulation: Goal: Postoperative complications will be avoided or minimized Outcome: Progressing Goal: Diagnostic test results will improve Outcome: Progressing Problem: Respiratory: Goal: Levels of oxygenation will improve Outcome: Progressing Goal: Respiratory status will improve Outcome: Progressing Goal: Ability to tolerate decreased levels of ventilator support will improve Outcome: Progressing Problem: Sensory: Goal: Pain level will decrease Outcome: Progressing Problem: Skin Integrity: Goal: Demonstration of wound healing without infection will improve Outcome: Progressing Goal: Risk for impaired skin integrity will decrease Outcome: Progressing Problem: Tissue Perfusion: Goal: Risk factors for ineffective tissue perfusion will decrease Outcome: Progressing Goal: Risk of venous thrombosis will decrease Outcome: Progressing Problem: Urinary Elimination: Goal: Ability to achieve and maintain adequate urine output will improve Outcome: Progressing Goal: Ability to achieve and maintain adequate renal perfusion and functioning will improve Outcome: Progressing F FORESTER * Plan of Care - Apryl Killian MSW - 05/11/2021 4:11 PM CST [facility] and [facility] are not able to accept pt. For home health due to out of service area for pt. NURSING SERVICE DIRECTOR will f/u. F FORESTER * Plan of Care - Amelia Hastings RN - 05/11/2021 3:31 PM CST Home Health Consult received. [facility] unable to accept due to inability to timely staff patient. MELISSA Evans notified. F FORESTER * Plan of Care - Apryl Killian MSW - 05/11/2021 2:35 PM CST NURSING SERVICE DIRECTOR met with pt. This afternoon to discuss goals of care for pt. NURSING SERVICE DIRECTOR voiced PT and OT are recommending SNF when DC. Pt. States he does not want SNF at all and wants to return home with his (Geno when DC. NURSING SERVICE DIRECTOR spoke with pt.'s (Geno ) this afternoon to discuss goals of care for pt. Geno states to NURSING SERVICE DIRECTOR she is agreeable for pt. To come home when DC. Lora states she is not working andher and her 2 sons will be able to provide care for pt. When DC. Lora states they are working on getting state aide. Geno voiced pt. Does not have a PCP either. NURSING SERVICE DIRECTOR will send referrals on pt. For home health care. F FORESTER * Plan of Care - Sandee Paez, PT - 05/11/2021 1:44 PM CST Progressing very slowly towards prior set goals. F FORESTER * Plan of Care - Miranda Garza RN - 05/11/2021 8:20 AM STAFF FORESTER CM gave handoff report to Bev POE CM on [address]th Floor. Miranda Garza RN BSN [employer] [phone] F FORESTER * Plan of Care - Devonte Ward RN - 05/11/2021 4:08 AM CST Goals: Clinical Goals for the Shift: vss; decrease in bloody urine; increase in activity Summary: care plan updated in cares/safey F FORESTER * Plan of Care - Charo Girard RN - 05/10/2021 11:27 AM CST Goals: Clinical Goals for the Shift: stable vs, ambulate, IS, safety Problem: Health Behavior: Goal: Understanding of discharge needs will improve Outcome: Progressing Problem: Activity: Goal: Activity Intolerance will improve Outcome: Progressing Problem: Cardiac: Goal: Ability to achieve and maintain adequate cardiopulmonary perfusion will improve Outcome: Progressing Goal: Hemodynamic stability will improve Outcome: Progressing Goal: Will show no evidence of cardiac arrhythmias Outcome: Progressing Problem: Lack of Knowledge: Goal: Verbalization of understanding the information provided will improve Outcome: Progressing Problem: Coping: Goal: Ability to adjust to condition or change in health will improve Outcome: Progressing Goal: Ability to state activities that reduce stress will improve Outcome: Progressing Goal: Level of anxiety will decrease Outcome: Progressing Problem: Fluid Volume: Goal: Risk for excess fluid volume will decrease Outcome: Progressing Problem: Health Behavior: Goal: Identification of resources available to assist in meeting health care needs will improve Outcome: Progressing Goal: Compliance with treatment plan for underlying cause of condition will improve Outcome: Progressing Problem: Physical Regulation: Goal: Complications related to the disease process, condition or treatment will be avoided or minimized Outcome: Progressing Goal: Diagnostic test results will improve Outcome: Progressing Problem: Sensory: Goal: General experience of comfort will improve Outcome: Progressing Goal: Satisfaction with pain management regimen will improve Outcome: Progressing Problem: Activity: Goal: Mobility will improve Outcome: Progressing Problem: Lack of Knowledge: Goal: Understanding of ways to prevent future skin breakdown will improve Outcome: Progressing Goal: Ability to identify appropriate dietary choices will improve Outcome: Progressing Problem: Nutritional: Goal: Dietary intake will improve Outcome: Progressing Goal: Ability to maintain a balanced intake and output will improve Outcome: Progressing Problem: Skin Integrity: Goal: Risk for impaired skin integrity will decrease Outcome: Progressing Goal: Ability to demonstrate warm and dry skin will improve Outcome: Progressing Goal: Circulation will improve to fullest extent possible Outcome: Progressing Problem: Lack of Knowledge: Goal: Ability to state ways to decrease the risk of falls will improve Outcome: Progressing Problem: Safety: Goal: Will remain free from falls Outcome: Progressing Goal: Will remain free from injury from falls Outcome: Progressing Goal: Will remain free from falls and injury in home environment Outcome: Progressing Problem: Respiratory: Goal: Ability to maintain a clear airway will improve Outcome: Progressing Goal: Ability to maintain adequate ventilation will improve Outcome: Progressing Problem: Activity: Goal: Risk for activity intolerance will decrease Outcome: Progressing Problem: Bowel/Gastric: Goal: Gastrointestinal status for postoperative course will improve Outcome: Progressing Goal: Ability to maintain normal bowel function will be supported Outcome: Progressing Problem: Cardiac: Goal: Hemodynamic stability will improve Outcome: Progressing Goal: Ability to maintain an adequate cardiac output will improve Outcome: Progressing Goal: Will show no signs and symptoms of excessive bleeding Outcome: Progressing Problem: Lack of Knowledge: Goal: Ability to demonstrate proper wound care will improve Outcome: Progressing Goal: Knowledge of disease or condition will improve Outcome: Progressing Goal: Knowledge of the prescribed therapeutic regimen will improve Outcome: Progressing Problem: Coping: Goal: Ability to adjust to condition or change in health will improve Outcome: Progressing Problem: Health Behavior: Goal: Identification of resources available to assist in meeting health care needs will improve Outcome: Progressing Problem: Nutritional: Goal: Risk for body nutrition deficit will decrease Outcome: Progressing Problem: Physical Regulation: Goal: Postoperative complications will be avoided or minimized Outcome: Progressing Goal: Diagnostic test results will improve Outcome: Progressing Problem: Respiratory: Goal: Levels of oxygenation will improve Outcome: Progressing Goal: Respiratory status will improve Outcome: Progressing Goal: Ability to tolerate decreased levels of ventilator support will improve Outcome: Progressing Problem: Sensory: Goal: Pain level will decrease Outcome: Progressing Problem: Skin Integrity: Goal: Demonstration of wound healing without infection will improve Outcome: Progressing Goal: Risk for impaired skin integrity will decrease Outcome: Progressing Problem: Tissue Perfusion: Goal: Risk factors for ineffective tissue perfusion will decrease Outcome: Progressing Goal: Risk of venous thrombosis will decrease Outcome: Progressing Problem: Urinary Elimination: Goal: Ability to achieve and maintain adequate urine output will improve Outcome: Progressing Goal: Ability to achieve and maintain adequate renal perfusion and functioning will improve Outcome: Progressing Summary: remains on supplemental oxygen 4l, ext PM in place, bed alarms in place, osorio in place, vss, with soft bp, ambulated in room with RN, and encouraged to do IS. Back pain tx and managed with prn rx. F FORESTER * Plan of Care - Devonte Ward RN - 05/10/2021 2:57 AM CST Goals: Clinical Goals for the Shift: vss; normalizing routine labs and blood sugars; increase in activity Summary: care plan updated in cares and safety F FORESTER * Plan of Care - Kirby Duque MSW - 05/09/2021 5:59 PM CST TUESDAY IN-HOUSE SOCIAL WORK INCIDENTAL EVENT - RESOURCES GIVEN, EDUCATION GIVEN TUESDAY IN-HOUSE SOCIAL WORK BRIEF VISIT: This Tuesday SW completed brief visit with Patient as this SW was approached by Patient's RN. RN reported that he is interested in learning about possible short-term disability for his condition - as Patient is noted to be unable to work for about 10 months. This SW acknowledged. Of note, this SW did NOT review Patient's chart prior to visit. This SW completed visit with Patient to provide requested education. 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 This SW educated Patient on short-term disability benefits usually being available through a formal employer. From this SW knowledge, the [facility] does NOT have a public short-term disability program at this time. Educated Patient on possible need to apply for Social Security Benefits - however such will take at least 6 months - 1.5 years to obtain due to the current backlog of pending Social Security applications / Social Security determination appeal cases atthis time. Patient acknowledged. This SW advised Patient he would provide resources to contact to assist with recommendations on how to go about possibly seeking inquiry into possible short-term disability opportunities After such, this SW did provide Social Security resources to RN to provide to Patient. RN appreciative. Kirby Duque LMSW Rehab Aide - Stepdown/ ICU TUESDAY IN-HOUSE SW 05/09/2021 [facility] Case Management Dept [phone] (Direct#) [phone] (Stepdown fax#) [phone] (ICU fax#) F FORESTER * Plan of Care - Aimee Cardenas RN - 05/08/2021 7:12 PM CST Goals: Clinical Goals for the Shift: stable labs, vss, comfort Summary: Problem: Health Behavior: Goal: Understanding of discharge needs will improve Outcome: Progressing Problem: Activity: Goal: Activity Intolerance will improve Outcome: Progressing Problem: Cardiac: Goal: Ability to achieve and maintain adequate cardiopulmonary perfusion will improve Outcome: Progressing Goal: Hemodynamic stability will improve Outcome: Progressing Goal: Will show no evidence of cardiac arrhythmias Outcome: Progressing Problem: Lack of Knowledge: Goal: Verbalization of understanding the information provided will improve Outcome: Progressing Problem: Coping: Goal: Ability to adjust to condition or change in health will improve Outcome: Progressing Goal: Ability to state activities that reduce stress will improve Outcome: Progressing Goal: Level of anxiety will decrease Outcome: Progressing Problem: Fluid Volume: Goal: Risk for excess fluid volume will decrease Outcome: Progressing Problem: Health Behavior: Goal: Identification of resources available to assist in meeting health care needs will improve Outcome: Progressing Goal: Compliance with treatment plan for underlying cause of condition will improve Outcome: Progressing Problem: Physical Regulation: Goal: Complications related to the disease process, condition or treatment will be avoided or minimized Outcome: Progressing Goal: Diagnostic test results will improve Outcome: Progressing Problem: Sensory: Goal: General experience of comfort will improve Outcome: Progressing Goal: Satisfaction with pain management regimen will improve Outcome: Progressing Problem: Activity: Goal: Mobility will improve Outcome: Progressing Problem: Lack of Knowledge: Goal: Understanding of ways to prevent future skin breakdown will improve Outcome: Progressing Goal: Ability to identify appropriate dietary choices will improve Outcome: Progressing Problem: Nutritional: Goal: Dietary intake will improve Outcome: Progressing Goal: Ability to maintain a balanced intake and output will improve Outcome: Progressing Problem: Skin Integrity: Goal: Risk for impaired skin integrity will decrease Outcome: Progressing Goal: Ability to demonstrate warm and dry skin will improve Outcome: Progressing Goal: Circulation will improve to fullest extent possible Outcome: Progressing Problem: Lack of Knowledge: Goal: Ability to state ways to decrease the risk of falls will improve Outcome: Progressing Problem: Safety: Goal: Will remain free from falls Outcome: Progressing Goal: Will remain free from injury from falls Outcome: Progressing Goal: Will remain free from falls and injury in home environment Outcome: Progressing Problem: Respiratory: Goal: Ability to maintain a clear airway will improve Outcome: Progressing Goal: Ability to maintain adequate ventilation will improve Outcome: Progressing Problem: Activity: Goal: Risk for activity intolerance will decrease Outcome: Progressing Problem: Bowel/Gastric: Goal: Gastrointestinal status for postoperative course will improve Outcome: Progressing Goal: Ability to maintain normal bowel function will be supported Outcome: Progressing Problem: Cardiac: Goal: Hemodynamic stability will improve Outcome: Progressing Goal: Ability to maintain an adequate cardiac output will improve Outcome: Progressing Goal: Will show no signs and symptoms of excessive bleeding Outcome: Progressing Problem: Lack of Knowledge: Goal: Ability to demonstrate proper wound care will improve Outcome: Progressing Goal: Knowledge of disease or condition will improve Outcome: Progressing Goal: Knowledge of the prescribed therapeutic regimen will improve Outcome: Progressing Problem: Coping: Goal: Ability to adjust to condition or change in health will improve Outcome: Progressing Problem: Health Behavior: Goal: Identification of resources available to assist in meeting health care needs will improve Outcome: Progressing Problem: Nutritional: Goal: Risk for body nutrition deficit will decrease Outcome: Progressing Problem: Physical Regulation: Goal: Postoperative complications will be avoided or minimized Outcome: Progressing Goal: Diagnostic test results will improve Outcome: Progressing Problem: Respiratory: Goal: Levels of oxygenation will improve Outcome: Progressing Goal: Respiratory status will improve Outcome: Progressing Goal: Ability to tolerate decreased levels of ventilator support will improve Outcome: Progressing Problem: Sensory: Goal: Pain level will decrease Outcome: Progressing Problem: Skin Integrity: Goal: Demonstration of wound healing without infection will improve Outcome: Progressing Goal: Risk for impaired skin integrity will decrease Outcome: Progressing Problem: Tissue Perfusion: Goal: Risk factors for ineffective tissue perfusion will decrease Outcome: Progressing Goal: Risk of venous thrombosis will decrease Outcome: Progressing Problem: Urinary Elimination: Goal: Ability to achieve and maintain adequate urine output will improve Outcome: Progressing Goal: Ability to achieve and maintain adequate renal perfusion and functioning will improve Outcome: Progressing F FORESTER * Plan of Care - Sheron Adams COTA - 05/08/2021 12:21 PM STAFF FORESTER Problem: OT Misc Goal: OT STG - Mis 5 Description: Patient will complete chest mobilization exercises with moderate verbal cues one time Outcome: Progressing Note: EXERCISE TYPE: CHEST MOBILIZATION MUSCLE GROUP(S): chest NUMBER OF REPETITIONS: 10 X 4 ex ASSIST LEVEL: INITIAL VISUAL DEMONSTRATION; verbal cues to slow down. LOCATION OF COMPLETION: seated EOB TOLERANCE: good Goal: OT STG - Misc 6 Description: Patient will adhere to sternal precautions during ADLS with minimal verbal cues one time Outcome: Progressing Note: Pt needed verbal cues for sternal precautions when coughing. (use of bear) Goal: OT STG - Misc 7 Description: Patient will be oriented x4 using visual cues as needed one time Outcome: Progressing Note: A O X 3 F FORESTER * Plan of Care - Romeo Nagel RN - 05/08/2021 10:28 AM CST Goals: Clinical Goals for the Shift: discussed the plan of care for the day Summary: Pt up in the chair. Pt ambulated in [place]. VSS. Pt transferring to 9T today F FORESTER * Plan of Care - Qing Fernandez RRT - 05/08/2021 9:09 AM CST Problem: Respiratory: Goal: Ability to maintain a clear airway will improve Outcome: Progressing Goal: Ability to maintain adequate ventilation will improve Outcome: Progressing Inhaled Bronchodilator Therapy Pt assessed and scored per the established inhaled bronchodilator protocol criteria. Pt preference and subjective response to therapy used in conjunction with pt score to provide current updraft therapy. Oxygen Therapy Patient remains on oxygen titration protocol. Wean FiO2 to maintain SpO2 >92%. F FORESTER * Plan of Care - Janet Beltran RRT - 05/08/2021 3:33 AM CST Problem: Respiratory: Goal: Ability to maintain a clear airway will improve 05/08/2021 [id number] by Janet Beltran RRT Outcome: Progressing Oxygen Therapy Patient remains on oxygen titration protocol. Wean FiO2 to maintain SpO2 >92%. Cough Patient has a strong cough on demand. Will continue to monitor sputum amount, color, and consistency. Lung Expansion Therapy Patient coached on lung expansion therapy with IS. Pt demonstrates appropriate return demonstration. Pt encouraged to deep breath and cough with a splint as needed. Inhaled Bronchodilator Therapy Pt assessed and scored per the established inhaled bronchodilator protocol criteria. Pt preference and subjective response to therapy used in conjunction with pt score to provide current updraft therapy. F FORESTER * Plan of [place] - Tiana Ornelas RN - 05/08/2021 2:59 AM CST Problem: Activity: Goal: Activity Intolerance will improve Outcome: Progressing Problem: Cardiac: Goal: Ability to achieve and maintain adequate cardiopulmonary perfusion will improve Outcome: Progressing Goal: Hemodynamic stability will improve Outcome: Progressing Goal: Will show no evidence of cardiac arrhythmias Outcome: Progressing Problem: Coping: Goal: Ability to adjust to condition or change in health will improve Outcome: Progressing Goal: Ability to state activities that reduce stress will improve Outcome: Progressing Problem: Fluid Volume: Goal: Risk for excess fluid volume will decrease Outcome: Progressing Problem: Health Behavior: Goal: Identification of resources available to assist in meeting health care needs will improve Outcome: Progressing Goal: Compliance with treatment plan for underlying cause of condition will improve Outcome: Progressing Problem: Physical Regulation: Goal: Complications related to the disease process, condition or treatment will be avoided or minimized Outcome: Progressing Goal: Diagnostic test results will improve Outcome: Progressing Problem: Sensory: Goal: General experience of comfort will improve Outcome: Progressing Goal: Satisfaction with pain management regimen will improve Outcome: Progressing Problem: Activity: Goal: Mobility will improve Outcome: Progressing Problem: Lack of Knowledge: Goal: Understanding of ways to prevent future skin breakdown will improve Outcome: Progressing Goal: Ability to identify appropriate dietary choices will improve Outcome: Progressing Problem: Nutritional: Goal: Dietary intake will improve Outcome: Progressing Goal: Ability to maintain a balanced intake and output will improve Outcome: Progressing Problem: Skin Integrity: Goal: Risk for impaired skin integrity will decrease Outcome: Progressing Goal: Ability to demonstrate warm and dry skin will improve Outcome: Progressing Goal: Circulation will improve to fullest extent possible Outcome: Progressing Problem: Lack of Knowledge: Goal: Ability to state ways to decrease the risk of falls will improve Outcome: Progressing Problem: Safety: Goal: Will remain free from falls Outcome: Progressing Goal: Will remain free from injury from falls Outcome: Progressing Goal: Will remain free from falls and injury in home environment Outcome: Progressing Problem: Respiratory: Goal: Ability to maintain a clear airway will improve Outcome: Progressing Goal: Ability to maintain adequate ventilation will improve Outcome: Progressing Problem: Activity: Goal: Risk for activity intolerance will decrease Outcome: Progressing Problem: Bowel/Gastric: Goal: Gastrointestinal status for postoperative course will improve Outcome: Progressing Goal: Ability to maintain normal bowel function will be supported Outcome: Progressing Problem: Cardiac: Goal: Hemodynamic stability will improve Outcome: Progressing Goal: Ability to maintain an adequate cardiac output will improve Outcome: Progressing Goal: Will show no signs and symptoms of excessive bleeding Outcome: Progressing Problem: Lack of Knowledge: Goal: Ability to demonstrate proper wound care will improve Outcome: Progressing Goal: Knowledge of disease or condition will improve Outcome: Progressing Goal: Knowledge of the prescribed therapeutic regimen will improve Outcome: Progressing Problem: Coping: Goal: Ability to adjust to condition or change in health will improve Outcome: Progressing Problem: Health Behavior: Goal: Identification of resources available to assist in meeting health care needs will improve Outcome: Progressing Problem: Nutritional: Goal: Risk for body nutrition deficit will decrease Outcome: Progressing Problem: Physical Regulation: Goal: Postoperative complications will be avoided or minimized Outcome: Progressing Goal: Diagnostic test results will improve Outcome: Progressing Problem: Respiratory: Goal: Levels of oxygenation will improve Outcome: Progressing Goal: Respiratory status will improve Outcome: Progressing Goal: Ability to tolerate decreased levels of ventilator support will improve Outcome: Progressing Problem: Sensory: Goal: Pain level will decrease Outcome: Progressing Problem: Skin Integrity: Goal: Demonstration of wound healing without infection will improve Outcome: Progressing Goal: Risk for impaired skin integrity will decrease Outcome: Progressing Problem: Tissue Perfusion: Goal: Risk factors for ineffective tissue perfusion will decrease Outcome: Progressing Goal: Risk of venous thrombosis will decrease Outcome: Progressing Problem: Urinary Elimination: Goal: Ability to achieve and maintain adequate urine output will improve Outcome: Progressing Goal: Ability to achieve and maintain adequate renal perfusion and functioning will improve Outcome: Progressing Goals: Clinical Goals for the Shift: Patient will remain hemodynamically stable F FORESTER * Plan of Care - Octavia Daniel RN - 05/07/2021 4:22 PM CST Goals: Clinical Goals for the Shift: Stable vital signs, weean oxygen as tolerated, comfort/safety Summary: Patient chest tubes removed this morning. Echo done, please see results. One unit PRBC given. Weaned down dobutamine. Problem: Health Behavior: Goal: Understanding of discharge needs will improve Outcome: Progressing Problem: Activity: Goal: Activity Intolerance will improve Outcome: Progressing Problem: Cardiac: Goal: Ability to achieve and maintain adequate cardiopulmonary perfusion will improve Outcome: Progressing Goal: Hemodynamic stability will improve Outcome: Progressing Goal: Will show no evidence of cardiac arrhythmias Outcome: Progressing Problem: Lack of Knowledge: Goal: Verbalization of understanding the information provided will improve Outcome: Progressing Problem: Coping: Goal: Ability to adjust to condition or change in health will improve Outcome: Progressing Goal: Ability to state activities that reduce stress will improve Outcome: Progressing Goal: Level of anxiety will decrease Outcome: Progressing Problem: Fluid Volume: Goal: Risk for excess fluid volume will decrease Outcome: Progressing Problem: Health Behavior: Goal: Identification of resources available to assist in meeting health care needs will improve Outcome: Progressing Goal: Compliance with treatment plan for underlying cause of condition will improve Outcome: Progressing Problem: Physical Regulation: Goal: Complications related to the disease process, condition or treatment will be avoided or minimized Outcome: Progressing Goal: Diagnostic test results will improve Outcome: Progressing Problem: Sensory: Goal: General experience of comfort will improve Outcome: Progressing Goal: Satisfaction with pain management regimen will improve Outcome: Progressing Problem: Activity: Goal: Mobility will improve Outcome: Progressing Problem: Lack of Knowledge: Goal: Understanding of ways to prevent future skin breakdown will improve Outcome: Progressing Goal: Ability to identify appropriate dietary choices will improve Outcome: Progressing Problem: Nutritional: Goal: Dietary intake will improve Outcome: Progressing Goal: Ability to maintain a balanced intake and output will improve Outcome: Progressing Problem: Skin Integrity: Goal: Risk for impaired skin integrity will decrease Outcome: Progressing Goal: Ability to demonstrate warm and dry skin will improve Outcome: Progressing Goal: Circulation will improve to fullest extent possible Outcome: Progressing Problem: Lack of Knowledge: Goal: Ability to state ways to decrease the risk of falls will improve Outcome: Progressing Problem: Safety: Goal: Will remain free from falls Outcome: Progressing Goal: Will remain free from injury from falls Outcome: Progressing Goal: Will remain free from falls and injury in home environment Outcome: Progressing Problem: Respiratory: Goal: Ability to maintain a clear airway will improve Outcome: Progressing Goal: Ability to maintain adequate ventilation will improve Outcome: Progressing Problem: Activity: Goal: Risk for activity intolerance will decrease Outcome: Progressing Problem: Bowel/Gastric: Goal: Gastrointestinal status for postoperative course will improve Outcome: Progressing Goal: Ability to maintain normal bowel function will be supported Outcome: Progressing Problem: Cardiac: Goal: Hemodynamic stability will improve Outcome: Progressing Goal: Ability to maintain an adequate cardiac output will improve Outcome: Progressing Goal: Will show no signs and symptoms of excessive bleeding Outcome: Progressing Problem: Lack of Knowledge: Goal: Ability to demonstrate proper wound care will improve Outcome: Progressing Goal: Knowledge of disease or condition will improve Outcome: Progressing Goal: Knowledge of the prescribed therapeutic regimen will improve Outcome: Progressing Problem: Coping: Goal: Ability to adjust to condition or change in health will improve Outcome: Progressing Problem: Health Behavior: Goal: Identification of resources available to assist in meeting health care needs will improve Outcome: Progressing Problem: Nutritional: Goal: Risk for body nutrition deficit will decrease Outcome: Progressing Problem: Physical Regulation: Goal: Postoperative complications will be avoided or minimized Outcome: Progressing Goal: Diagnostic test results will improve Outcome: Progressing Problem: Respiratory: Goal: Levels of oxygenation will improve Outcome: Progressing Goal: Respiratory status will improve Outcome: Progressing Goal: Ability to tolerate decreased levels of ventilator support will improve Outcome: Progressing Problem: Sensory: Goal: Pain level will decrease Outcome: Progressing Problem: Skin Integrity: Goal: Demonstration of wound healing without infection will improve Outcome: Progressing Goal: Risk for impaired skin integrity will decrease Outcome: Progressing Problem: Tissue Perfusion: Goal: Risk factors for ineffective tissue perfusion will decrease Outcome: Progressing Goal: Risk of venous thrombosis will decrease Outcome: Progressing Problem: Urinary Elimination: Goal: Ability to achieve and maintain adequate urine output will improve Outcome: Progressing Goal: Ability to achieve and maintain adequate renal perfusion and functioning will improve Outcome: Progressing F FORESTER * Plan of Care - Regina Garcia RRT - 05/07/2021 7:44 AM CST Problem: Respiratory: Goal: Ability to maintain a clear airway will improve Outcome: Progressing Goal: Ability to maintain adequate ventilation will improve Outcome: Progressing Inhaled Bronchodilator Therapy Pt assessed and scored per the established inhaled bronchodilator protocol criteria. Pt preference and subjective response to therapy used in conjunction with pt score to provide current updraft therapy. Oxygen Therapy Patient remains on oxygen titration protocol. Wean FiO2 to maintain SpO2 >92%. F FORESTER * Plan of Care - Colton Monte RN - 05/07/2021 1:53 AM CST Problem: Cardiac: Goal: Ability to achieve and maintain adequate cardiopulmonary perfusion will improve Outcome: Progressing Goal: Hemodynamic stability will improve Outcome: Progressing Goal: Will show no evidence of cardiac arrhythmias Outcome: Progressing Problem: Lack of Knowledge: Goal: Verbalization of understanding the information provided will improve Outcome: Progressing F FORESTER * Plan of Care - Janet Beltran RRT - 05/06/2021 9:37 PM CST Problem: Respiratory: Goal: Ability to maintain a clear airway will improve Outcome: Progressing Oxygen Therapy Patient remains on oxygen titration protocol. Wean FiO2 to maintain SpO2 >92%. Cough Patient has a strong cough on demand. Will continue to monitor sputum amount, color, and consistency. Inhaled Bronchodilator Therapy Pt assessed and scored per the established inhaled bronchodilator protocol criteria. Pt preference and subjective response to therapy used in conjunction with pt score to provide current updraft therapy. F FORESTER * Plan of Care - Yecenia Michaels RN - 05/06/2021 6:46 PM CST Goals: Problem: Health Behavior: Goal: Understanding of discharge needs will improve Outcome: Progressing Problem: Activity: Goal: Activity Intolerance will improve Outcome: Progressing Problem: Cardiac: Goal: Ability to achieve and maintain adequate cardiopulmonary perfusion will improve Outcome: Progressing Goal: Hemodynamic stability will improve Outcome: Progressing Goal: Will show no evidence of cardiac arrhythmias Outcome: Progressing Problem: Lack of Knowledge: Goal: Verbalization of understanding the information provided will improve Outcome: Progressing Problem: Coping: Goal: Ability to adjust to condition or change in health will improve Outcome: Progressing Goal: Ability to state activities that reduce stress will improve Outcome: Progressing Goal: Level of anxiety will decrease Outcome: Progressing Problem: Fluid Volume: Goal: Risk for excess fluid volume will decrease Outcome: Progressing Problem: Health Behavior: Goal: Identification of resources available to assist in meeting health care needs will improve Outcome: Progressing Goal: Compliance with treatment plan for underlying cause of condition will improve Outcome: Progressing Problem: Physical Regulation: Goal: Complications related to the disease process, condition or treatment will be avoided or minimized Outcome: Progressing Goal: Diagnostic test results will improve Outcome: Progressing Problem: Sensory: Goal: General experience of comfort will improve Outcome: Progressing Goal: Satisfaction with pain management regimen will improve Outcome: Progressing Problem: Activity: Goal: Mobility will improve Outcome: Progressing Problem: Lack of Knowledge: Goal: Understanding of ways to prevent future skin breakdown will improve Outcome: Progressing Goal: Ability to identify appropriate dietary choices will improve Outcome: Progressing Problem: Nutritional: Goal: Dietary intake will improve Outcome: Progressing Goal: Ability to maintain a balanced intake and output will improve Outcome: Progressing Problem: Skin Integrity: Goal: Risk for impaired skin integrity will decrease Outcome: Progressing Goal: Ability to demonstrate warm and dry skin will improve Outcome: Progressing Goal: Circulation will improve to fullest extent possible Outcome: Progressing Problem: Lack of Knowledge: Goal: Ability to state ways to decrease the risk of falls will improve Outcome: Progressing Problem: Safety: Goal: Will remain free from falls Outcome: Progressing Goal: Will remain free from injury from falls Outcome: Progressing Goal: Will remain free from falls and injury in home environment Outcome: Progressing Problem: Respiratory: Goal: Ability to maintain a clear airway will improve Outcome: Progressing Goal: Ability to maintain adequate ventilation will improve Outcome: Progressing Problem: Activity: Goal: Risk for activity intolerance will decrease Outcome: Progressing Problem: Bowel/Gastric: Goal: Gastrointestinal status for postoperative course will improve Outcome: Progressing Goal: Ability to maintain normal bowel function will be supported Outcome: Progressing Problem: Cardiac: Goal: Hemodynamic stability will improve Outcome: Progressing Goal: Ability to maintain an adequate cardiac output will improve Outcome: Progressing Goal: Will show no signs and symptoms of excessive bleeding Outcome: Progressing Problem: Lack of Knowledge: Goal: Ability to demonstrate proper wound care will improve Outcome: Progressing Goal: Knowledge of disease or condition will improve Outcome: Progressing Goal: Knowledge of the prescribed therapeutic regimen will improve Outcome: Progressing Problem: Coping: Goal: Ability to adjust to condition or change in health will improve Outcome: Progressing Problem: Health Behavior: Goal: Identification of resources available to assist in meeting health care needs will improve Outcome: Progressing Problem: Nutritional: Goal: Risk for body nutrition deficit will decrease Outcome: Progressing Problem: Physical Regulation: Goal: Postoperative complications will be avoided or minimized Outcome: Progressing Goal: Diagnostic test results will improve Outcome: Progressing Problem: Respiratory: Goal: Levels of oxygenation will improve Outcome: Progressing Goal: Respiratory status will improve Outcome: Progressing Goal: Ability to tolerate decreased levels of ventilator support will improve Outcome: Progressing Problem: Sensory: Goal: Pain level will decrease Outcome: Progressing Problem: Skin Integrity: Goal: Demonstration of wound healing without infection will improve Outcome: Progressing Goal: Risk for impaired skin integrity will decrease Outcome: Progressing Problem: Tissue Perfusion: Goal: Risk factors for ineffective tissue perfusion will decrease Outcome: Progressing Goal: Risk of venous thrombosis will decrease Outcome: Progressing Problem: Urinary Elimination: Goal: Ability to achieve and maintain adequate urine output will improve Outcome: Progressing Goal: Ability to achieve and maintain adequate renal perfusion and functioning will improve Outcome: Progressing Clinical Goals for the Shift: wean O2 as tolerated, remove IABP Summary: IABP removed this morning no difficulties, up to chair after bedrest over, weaning O2 as tolerated F FORESTER * Plan of Care - Regina Garcia RRT - 05/06/2021 7:57 AM CST Problem: Respiratory: Goal: Ability to maintain a clear airway will improve Outcome: Progressing Goal: Ability to maintain adequate ventilation will improve Outcome: Progressing Oxygen Therapy Patient remains on oxygen titration protocol. Wean FiO2 to maintain SpO2 >92%. Inhaled Bronchodilator Therapy Pt assessed and scored per the established inhaled bronchodilator protocol criteria. Pt preference and subjective response to therapy used in conjunction with pt score to provide current updraft therapy. F FORESTER * Plan of Care - Vanessa Holt RN - 05/06/2021 5:23 AM CST Goals: Clinical Goals for the Shift: RN: Wean pressors; stable labs; I/O; monitor IABP; CBI; comfort/safety. Summary: Problem: Safety: Goal: Will remain free from falls Outcome: Progressing Goal: Will remain free from injury from falls Outcome: Progressing Problem: Health Behavior: Goal: Understanding of discharge needs will improve Outcome: Not Progressing Problem: Activity: Goal: Activity Intolerance will improve Outcome: Not Progressing Problem: Cardiac: Goal: Ability to achieve and maintain adequate cardiopulmonary perfusion will improve Outcome: Not Progressing Goal: Hemodynamic stability will improve Outcome: Not Progressing Goal: Will show no evidence of cardiac arrhythmias Outcome: Not Progressing Problem: Lack of Knowledge: Goal: Verbalization of understanding the information provided will improve Outcome: Not Progressing Problem: Coping: Goal: Ability to adjust to condition or change in health will improve Outcome: Not Progressing Goal: Ability to state activities that reduce stress will improve Outcome: Not Progressing Goal: Level of anxiety will decrease Outcome: Not Progressing Problem: Fluid Volume: Goal: Risk for excess fluid volume will decrease Outcome: Not Progressing Problem: Health Behavior: Goal: Identification of resources available to assist in meeting health care needs will improve Outcome: Not Progressing Goal: Compliance with treatment plan for underlying cause of condition will improve Outcome: Not Progressing Problem: Physical Regulation: Goal: Complications related to the disease process, condition or treatment will be avoided or minimized Outcome: Not Progressing Goal: Diagnostic test results will improve Outcome: Not Progressing Problem: Sensory: Goal: General experience of comfort will improve Outcome: Not Progressing Goal: Satisfaction with pain management regimen will improve Outcome: Not Progressing Problem: Activity: Goal: Mobility will improve Outcome: Not Progressing Problem: Lack of Knowledge: Goal: Understanding of ways to prevent future skin breakdown will improve Outcome: Not Progressing Goal: Ability to identify appropriate dietary choices will improve Outcome: Not Progressing Problem: Nutritional: Goal: Dietary intake will improve Outcome: Not Progressing Goal: Ability to maintain a balanced intake and output will improve Outcome: Not Progressing Problem: Skin Integrity: Goal: Risk for impaired skin integrity will decrease Outcome: Not Progressing Goal: Ability to demonstrate warm and dry skin will improve Outcome: Not Progressing Goal: Circulation will improve to fullest extent possible Outcome: Not Progressing Problem: Lack of Knowledge: Goal: Ability to state ways to decrease the risk of falls will improve Outcome: Not Progressing Problem: Safety: Goal: Will remain free from falls and injury in home environment Outcome: Not Progressing Problem: Respiratory: Goal: Ability to maintain a clear airway will improve Outcome: Not Progressing Goal: Ability to maintain adequate ventilation will improve Outcome: Not Progressing Problem: Activity: Goal: Risk for activity intolerance will decrease Outcome: Not Progressing Problem: Bowel/Gastric: Goal: Gastrointestinal status for postoperative course will improve Outcome: Not Progressing Goal: Ability to maintain normal bowel function will be supported Outcome: Not Progressing Problem: Cardiac: Goal: Hemodynamic stability will improve Outcome: Not Progressing Goal: Ability to maintain an adequate cardiac output will improve Outcome: Not Progressing Goal: Will show no signs and symptoms of excessive bleeding Outcome: Not Progressing Problem: Lack of Knowledge: Goal: Ability to demonstrate proper wound care will improve Outcome: Not Progressing Goal: Knowledge of disease or condition will improve Outcome: Not Progressing Goal: Knowledge of the prescribed therapeutic regimen will improve Outcome: Not Progressing Problem: Coping: Goal: Ability to adjust to condition or change in health will improve Outcome: Not Progressing Problem: Health Behavior: Goal: Identification of resources available to assist in meeting health care needs will improve Outcome: Not Progressing Problem: Nutritional: Goal: Risk for body nutrition deficit will decrease Outcome: Not Progressing Problem: Physical Regulation: Goal: Postoperative complications will be avoided or minimized Outcome: Not Progressing Goal: Diagnostic test results will improve Outcome: Not Progressing Problem: Respiratory: Goal: Levels of oxygenation will improve Outcome: Not Progressing Goal: Respiratory status will improve Outcome: Not Progressing Goal: Ability to tolerate decreased levels of ventilator support will improve Outcome: Not Progressing Problem: Sensory: Goal: Pain level will decrease Outcome: Not Progressing Problem: Skin Integrity: Goal: Demonstration of wound healing without infection will improve Outcome: Not Progressing Goal: Risk for impaired skin integrity will decrease Outcome: Not Progressing Problem: Tissue Perfusion: Goal: Risk factors for ineffective tissue perfusion will decrease Outcome: Not Progressing Goal: Risk of venous thrombosis will decrease Outcome: Not Progressing Problem: Urinary Elimination: Goal: Ability to achieve and maintain adequate urine output will improve Outcome: Not Progressing Goal: Ability to achieve and maintain adequate renal perfusion and functioning will improve Outcome: Not Progressing F FORESTER * Plan of Neelima - Janet Beltran RRT - 05/05/2021 10:34 PM CST Problem: Respiratory: Goal: Ability to maintain adequate ventilation will improve Outcome: Progressing Oxygen Therapy Patient remains on oxygen titration protocol. Wean FiO2 to maintain SpO2 >92%. Cough Patient has a strong cough on demand. Will continue to monitor sputum amount, color, and consistency. BiPAP Pt is tolerating non-invasive ventilation well. Mask fits well with minimal leak. No skin break down noted. Will continue to monitor and titrate per MD order. Inhaled Bronchodilator Therapy Pt assessed and scored per the established inhaled bronchodilator protocol criteria. Pt preference and subjective response to therapy used in conjunction with pt score to provide current updraft therapy. F FORESTER * Plan of Care - Yecenia Michaels RN - 05/05/2021 6:53 PM CST Goals: Problem: Health Behavior: Goal: Understanding of discharge needs will improve Outcome: Progressing Problem: Activity: Goal: Activity Intolerance will improve Outcome: Progressing Problem: Cardiac: Goal: Ability to achieve and maintain adequate cardiopulmonary perfusion will improve Outcome: Progressing Goal: Hemodynamic stability will improve Outcome: Progressing Goal: Will show no evidence of cardiac arrhythmias Outcome: Progressing Problem: Lack of Knowledge: Goal: Verbalization of understanding the information provided will improve Outcome: Progressing Problem: Coping: Goal: Ability to adjust to condition or change in health will improve Outcome: Progressing Goal: Ability to state activities that reduce stress will improve Outcome: Progressing Goal: Level of anxiety will decrease Outcome: Progressing Problem: Fluid Volume: Goal: Risk for excess fluid volume will decrease Outcome: Progressing Problem: Health Behavior: Goal: Identification of resources available to assist in meeting health care needs will improve Outcome: Progressing Goal: Compliance with treatment plan for underlying cause of condition will improve Outcome: Progressing Problem: Physical Regulation: Goal: Complications related to the disease process, condition or treatment will be avoided or minimized Outcome: Progressing Goal: Diagnostic test results will improve Outcome: Progressing Problem: Sensory: Goal: General experience of comfort will improve Outcome: Progressing Goal: Satisfaction with pain management regimen will improve Outcome: Progressing Problem: Activity: Goal: Mobility will improve Outcome: Progressing Problem: Lack of Knowledge: Goal: Understanding of ways to prevent future skin breakdown will improve Outcome: Progressing Goal: Ability to identify appropriate dietary choices will improve Outcome: Progressing Problem: Nutritional: Goal: Dietary intake will improve Outcome: Progressing Goal: Ability to maintain a balanced intake and output will improve Outcome: Progressing Problem: Skin Integrity: Goal: Risk for impaired skin integrity will decrease Outcome: Progressing Goal: Ability to demonstrate warm and dry skin will improve Outcome: Progressing Goal: Circulation will improve to fullest extent possible Outcome: Progressing Problem: Lack of Knowledge: Goal: Ability to state ways to decrease the risk of falls will improve Outcome: Progressing Problem: Safety: Goal: Will remain free from falls Outcome: Progressing Goal: Will remain free from injury from falls Outcome: Progressing Goal: Will remain free from falls and injury in home environment Outcome: Progressing Problem: Respiratory: Goal: Ability to maintain a clear airway will improve Outcome: Progressing Goal: Ability to maintain adequate ventilation will improve Outcome: Progressing Problem: Activity: Goal: Risk for activity intolerance will decrease Outcome: Progressing Problem: Bowel/Gastric: Goal: Gastrointestinal status for postoperative course will improve Outcome: Progressing Goal: Ability to maintain normal bowel function will be supported Outcome: Progressing Problem: Cardiac: Goal: Hemodynamic stability will improve Outcome: Progressing Goal: Ability to maintain an adequate cardiac output will improve Outcome: Progressing Goal: Will show no signs and symptoms of excessive bleeding Outcome: Progressing Problem: Lack of Knowledge: Goal: Ability to demonstrate proper wound care will improve Outcome: Progressing Goal: Knowledge of disease or condition will improve Outcome: Progressing Goal: Knowledge of the prescribed therapeutic regimen will improve Outcome: Progressing Problem: Coping: Goal: Ability to adjust to condition or change in health will improve Outcome: Progressing Problem: Health Behavior: Goal: Identification of resources available to assist in meeting health care needs will improve Outcome: Progressing Problem: Nutritional: Goal: Risk for body nutrition deficit will decrease Outcome: Progressing Problem: Physical Regulation: Goal: Postoperative complications will be avoided or minimized Outcome: Progressing Goal: Diagnostic test results will improve Outcome: Progressing Problem: Respiratory: Goal: Levels of oxygenation will improve Outcome: Progressing Goal: Respiratory status will improve Outcome: Progressing Goal: Ability to tolerate decreased levels of ventilator support will improve Outcome: Progressing Problem: Sensory: Goal: Pain level will decrease Outcome: Progressing Problem: Skin Integrity: Goal: Demonstration of wound healing without infection will improve Outcome: Progressing Goal: Risk for impaired skin integrity will decrease Outcome: Progressing Problem: Tissue Perfusion: Goal: Risk factors for ineffective tissue perfusion will decrease Outcome: Progressing Goal: Risk of venous thrombosis will decrease Outcome: Progressing Problem: Urinary Elimination: Goal: Ability to achieve and maintain adequate urine output will improve Outcome: Progressing Goal: Ability to achieve and maintain adequate renal perfusion and functioning will improve Outcome: Progressing Clinical Goals for the Shift: wean drips, stable v/s Summary: stable v/s patient self extubated this am and is on bipap doing well. F FORESTER * Plan of Care - Mone Lawrence RN - 05/05/2021 6:31 PM CST Problem: Health Behavior: Goal: Understanding of discharge needs will improve Outcome: Not Progressing Problem: Cardiac: Goal: Ability to achieve and maintain adequate cardiopulmonary perfusion will improve Outcome: Not Progressing Goal: Hemodynamic stability will improve Outcome: Not Progressing Goal: Will show no evidence of cardiac arrhythmias Outcome: Not Progressing Goals: Clinical Goals for the Shift: wean drips, stable v/s Summary: F FORESTER * Plan of Care - Miranda Garza RN - 05/05/2021 11:37 AM STAFF FORESTER Patient address is [address] [place] [address]. Info sent to registration for correction. Miranda Garza RN BSN Tobacco Sizer [phone] F FORESTER * Plan of Care - Samra Kearns RRT - 05/05/2021 11:35 AM CST Problem: Respiratory: Goal: Ability to maintain a clear airway will improve Outcome: Progressing Goal: Ability to maintain adequate ventilation will improve Outcome: Progressing Oxygen Therapy Patient remains on oxygen titration protocol. Wean FiO2 to maintain SpO2 >92%. Inhaled Bronchodilator Therapy Pt assessed and scored per the established inhaled bronchodilator protocol criteria. Pt preference and subjective response to therapy used in conjunction with pt score to provide current updraft therapy. F FORESTER * Plan of Care - Stefania Gallegos RRT - 05/05/2021 5:16 AM CST Endotracheal Tube Airway is patent, secured with adjustable tube holding device. No skin breakdown at this time, willreposition ETT every 2 hours. Pt has bilateral lung sounds. ETT placement confirmed by CXR, and EtCO2. Will continue to monitor and manage airway. Mechanical Ventilation Pt is seen on full ventilator support. Pt is synchronous with the ventilator at the time. Will continue to monitor all pertinent lab data, chest radiographs and CT scans when available. Will titrate per MD order. Suction Patient provided with PRN suctioning to assist in removal of tracheal secretions. Will assess lung sounds and monitor cough. Suctioning will be provided as need for secretion clearance and airway patency. F FORESTER * Plan of Care - Betty Rogers RN - 05/05/2021 3:31 AM CST Goals: Recover from cabg x 4 wean pressors and inotrops monitor bleeding Summary: dobutrex off levo at 0.12 3 prbc given will stay on vent F FORESTER * Plan of Care - Betty Rogers RN - 05/04/2021 5:42 PM CST Goals: Clinical Goals for the Shift: CBI, comfort, surgery later today Summary: in or for cabg x 2 will return with iabp and paln to extubate and wean gtts F FORESTER * Plan of Care - Miranda Garza RN - 05/04/2021 3:40 PM STAFF FORESTER Attempted assessment. Patient off floor in surgery. Will continue to follow and will see patient tomorrow. Miranda Garza RN BSN [employer] [phone] F FORESTER * Op Note - Rhina Granados MD - 05/04/2021 2:25 PM CST Op Note: CABG Patient: Deepak Alvarado Service Date: 05/04/2021 : 1960 Admit Date: 05/01/2021 SURGEON Rhina Granados MD WEBBING SUPERVISOR MD Marianne PREOPERATIVE DIAGNOSIS Coronary artery disease POSTOPERATIVE DIAGNOSIS Coronary artery disease PROCEDURE PERFORMED Coronary artery bypass grafting x4, placement of left QUINN to the LAD, saphenous vein graft to the diagonal artery and obtuse marginal in a sequential fashion, saphenous vein graft to the PDA ANESTHESIA General. INDICATIONS This is a 60 y.o. male who presented with ST-elevation MT and was found to have occlusion of a LAD and diagonal stents. This was thought to be related to him stopping Effient prior to bladder surgery. The stents were her opened with PTCA with re-establishment of flow but due to three-vessel coronary disease and multiple stents within stents in the LAD he was referred for Coronary Artery Bypass Graft. He was stabilize with heparin, Integrilin, an intra-aortic balloon pump and was taken to the operating room for surgical revascularization. His LAD and diagonal stents were placed a long time ago. His echo showed EF of 40% with anterior wall and apical hypokinesis OPERATIVE FINDINGS There were no calcified or noncalcified plaques noted on epi aortic ultrasound the anterior wall ofthe left ventricle near the apex was hemorrhagic. The LAD was a 2 mm vessel which was diseased. Wasgrafted with the left QUINN which was a 2 mm vessel of good quality. Flow in the MAE to LAD graft was 79 cc/minute with the cross-clamp on. After bypass the left QUINN flow was 18 cc/minute with good PI. The diagonal vessel was 1.75 mm and was grafted with a vein of good size and quality as a [id number] anastomosis. The distal end of this vein was anastomosed to the obtuse marginal in an end-to-side fashion. Flow in the sequential graft after bypass was 106 cc/minute. The PDA was 2 mm and grafted with a vein of adequate size and good quality. Flow in this graft after bypass was 45 cc/minute. Cross-clamp time was 116 minutes. Bypass time 145 minutes. DESCRIPTION OF PROCEDURE After induction of anesthesia and endotracheal intubation the patient's neck chest abdomen and legswere prepped and draped in a sterile fashion. The right greater saphenous vein was harvested using an endoscopic device. A median sternotomy was performed. The left internal mammary artery was harvested in a pedicle fashion. Systemic heparin was administered. The pericardium was opened and suspended. An epiaortic ultrasound probe was used to scan the ascending aorta and there were no calcified ornoncalcified plaques noted. An area on the aorta was then identified for cannulation and cross-clamping. Aortic and right atrial cannulation was performed using 2-0 Prolene pursestring sutures. A fred nary sinus catheter was placed. An antegrade cardioplegia catheter with aortic root vent was placed. We went on bypass once ACT was adequate. The intra-aortic balloon pump was then stopped. The aortawas cross clamped. Antegrade followed by retrograde cardioplegia was administered. Cardioplegia wasadministered every 15 minutes thereafter. The heart was retracted. Each distal target was identified, opened, and grafted using running 7-0 Prolene. The proximal anastomoses were made on aortotomies made with a 4 mm punch using 5-0 Prolene.The proximal sites were marked with radioopaque markers. Finally, the LAD was opened and the left IMAanastomosed to it in an end-to-side fashion with running 7-0 Prolene. The QUINN flow was checked withthe cross clamp on and it was good. Warm retrograde cardioplegia was administered. Crossclamp was removed. Ventricular and atrial pacing wires were placed. The patient was allowed to reperfuse and was ventilated and was allowed to eject. Once the de-airing maneuvers were completed, the vents were removed.The patient was weaned off bypass successfully. He required mild doses of inotropes and the pre-existing intra-aortic balloon pump. The patient was decannulated. The patient was severely coagulopathic in it took us approximately an hour to obtain hemostasis after the protamine was in. We used a lotof topical hemostatic agents to stop bleeding from needle holes. This included Gelfoam and thrombin, FloSeal, Hamlet patch, Tisseel, and Eh. After all these various maneuvers the bleeding subsided enough to allow us to close. At this point then, the patient's chest was drained with appropriatechest tubes. Thymus was approximated in the midline. Pericardium left open. Chest was closed with multiple interrupted heavy gauge wire sutures. The patient's fascia, subcutaneous, and skin were thenclosed with absorbable sutures. Patient tolerated procedure well. He was taken to the ICU in stablebut critical condition. This case warrants an extra difficulty modifier due to the diffuse postop coagulopathy. I was present from shortly after incision was made until closure was begun. I was immediately available at all times I was not scrubbed then. The patient received a dose of IV antibiotics within an hour of incision. Orders were given to continue it for 24 hours postoperatively. Preop subcutaneous heparin was not given as the patient was systemically heparinized during the case. The patient was onbeta blockade and received a dose within 24 hours of surgery. F FORESTER * Brief Op Note - Laly Lopes MD - 05/04/2021 2:25 PM CST Operative Progress Note Surgical Team: Surgeon(s) and Role: * Rhina Granados MD - Primary * Timothy Fletcher MD - Fellow Anesthesiologist: Can Jones MD Anesthesiologist Jewel Hole Rough Opener: Robert Duran AA Hazardous Substances Engineer: Lc Roger Associate Product Manager: Michaela Castro RN Scrub: Milagros Sharp RN TECHNICAL WRITER: Leanne Escobar CRNFA; Rosamaria Cleaning RN; Edwige Magana CRNFA FLOAT: Jess Hanley RN DATE OF SURGERY : 05/04/2021 Preoperative Diagnosis: Pre-op Diagnosis * ST elevation myocardial infarction (STEMI), unspecified artery (HCC) [I21.3] Postoperative Diagnosis: Post-op Diagnosis * ST elevation myocardial infarction (STEMI), unspecified artery (HCC) [I21.3] Procedure(s): Procedure(s) (LRB): CORONARY ARTERY BYPASS GRAFT x 4 - LEFT INTERNAL MAMMARY ARTERY TAKEDOWN, RIGHT SAPHENOUS VEIN ENDOHARVEST, CARDIOPULMONARY BYPASS, TRANSESOPHAGEAL ECHOCARDIOGRAM (N/A) Operative Findings: Multivessel CAD Estimated Blood Loss: No blood loss documented. Intraoperative Fluids: CPB mls Specimens: No specimen collected in procedure Implants: Nothing was implanted during the procedure Blood/Blood Products Transfused: CPB mls Complications: None Condition on Discharge from the operating room was stable Laly Lopes MD Date: 05/04/2021 Time: 8:02 PM TEACHING ATTESTATION : I was present and directly participated in the entire procedure (including opening and closing). Cosigned by Rhina Granados MD at 05/05/2021 11:33 AM STAFF FORESTER F FORESTER F FORESTER * Provider Query - Frank Dugan MD - 05/04/2021 12:16 PM CST Specify the condition you are evaluating, treating or monitoring and document in the medical recordand the form below. __X__ Acute blood loss anemia ____ Precipitous drop in Hemoglobin or Hematocrit ____ Findings clinically insignificant ____ Other (specify below) ____ Clinically unable to determine Specify the Present on Admission Status. __ Was present on admission _X_ Was NOT present on admission __ Clinically unable to determine if present on admission. Additional Provider Response: Anemic on presentation to the ICU but Hemoglobin declined from 9.6 to 7.2 in the ICU ? Lab error asHgb bumped up to 10.4 with transfusion of 1 unit of PRBC Clinical Indicators/Treatments: ---05/01 Critical Care Consult: 60-year-old gentleman with a history of CAD status post multiple PCIs with stent placement. ??He underwent what sounds to be a cystoscopy and a Osorio catheter was placed. ??He presented to an outsidehospital and was found to have EKG findings concerning for myocardial infarction. Coronary angiography via right common femoral artery which demonstrated an LAD multiple stenoses and underwent PTCA of the LAD and diagonal. --05/04 Urology Consult: Gross hematuria. He underwent cystoscopy, clot evacuation and transurethral resection of bladder tumor at [facility] 05/01/2021 22:19 05/02/2021 04:43 05/02/2021 15:12 05/02/2021 19:35 Hgb 9.4 (L) 9.6 (L) 7.2 (L) 10.4 (L) Hct 28.2 (L) 29.3 (L) 21.4 (L) 30.7 (L) TX: RBC transfusion, lab monitoring Use of terms such as likely, suspected, possible, or probable (associated with a specific diagnosisthat is being evaluated, monitored, or treated as if it exists) are acceptable and can be coded in the inpatient setting when documented at the time of discharge. This documentation will become part of the patient???s medical record. Thank you, Rosy Leung RN, BSN Clinical Airplane Pilot Chief [employer] Teams: Rosy Leung PerfectServe: Rosy Leung [facility] NAME: Rosy Leung Email: [email or web address] F FORESTER * Provider Query - Frank Dugan MD - 05/04/2021 11:53 AM CST Specify a diagnosis POA to support the need for IABP SELECT ALL THAT APPLY ___ Cardiogenic shock _X__ Acute CHF: Specify type below _X__ Systolic [Reduced or mid-range ejection fraction (EF)] - (Evidence of clinical heart failure with a reduced EF of less than 40-45%) ___ Diastolic [Preserved or recovered ejection fraction (EF)] - (Evidence of heart failure with a normal EF of greater than 50%. Evidence of heart failure on Echo; Impaired relaxation and elevated A/E ratio in a patient with clinical heart failure) ___ Combined Systolic and Diastolic (Evidence of clinical heart failure with an EF of greater than 40% and less than 50%) ___ Hypotension ___ Other, specify below ___ Clinically unable to determine Additional Provider Response: STEMI with EF 40% on ECHO and Pulmonary edema on CXR. BP was borderline and pt with no additional need for hemodynamic support outside of the IABP Clinical Indicators/Treatments: ---05/01 Critical Care Consult: 60-year-old gentleman with a history of CAD status post multiple PCIs with stent placement. He underwent what sounds to be a cystoscopy and a Osorio catheter was placed. He presented to an outside hospital and was found to have EKG findings concerning for myocardial infarction. Coronary angiography via right common femoral artery which demonstrated an LAD multiple stenoses and underwent PTCA of the LAD and diagonal. Left ventriculogram demonstrated moderate anteroapical hypokinesis. An IABP was placed. CABG on planned on Tuesday. Given pulmonary edema on CXR, hold off on diuresis given borderline BP's and allow IABP to unload, may need lasix if no improvement 05/02 TTE: CONCLUSIONS: Technically difficult study with limited views. Normal left ventricular size. Left ventricle not well visualized. There is severe hypokinesis of the mid anteroseptal, anterior, and apical mancilla. Normal left ventricular wall thickness. Impaired diastolic relaxation Grade I. Ejection fraction is visually estimated at 40 %. TX: metoprolol, IABP Use of terms such as likely, suspected, possible, or probable (associated with a specific diagnosisthat is being evaluated, monitored, or treated as if it exists) are acceptable and can be coded in the inpatient setting when documented at the time of discharge. This documentation will become part of the patient???s medical record. Thank you, Rosy Leung RN, BSN Clinical Airplane Pilot Chief [employer] Teams: Rosy Leung PerfectServe: Rosy Leung [facility] NAME: Roys Leung Email: [email or web address] F FORESTER * Significant Event - Lise Suggs, ESCROW CLERK - 05/04/2021 8:55 AM CST Urology Procedure Progress Note Subjective Deepak Alvarado is a 60 y.o. male that we are seeing for gross hematuria. He has a 20 German Osorio catheter that is clotted. Lab/Radiology/Diagnostic Review: Most Recent: Vitals: 05/04/21 0915 BP: (!) 94/42 Pulse: 85 Resp: 22 Temp: SpO2: 91% Review of Systems: All other systems except the HPI are negative. Objective Physical exam: Constitutional: Appears well-developed and well-nourished. Head: Normocephalic and atraumatic. Eyes: Conjunctivae and EOM are normal. Pulmonary/Chest: Effort normal with no respiratory distress noted Musculoskeletal: Normal range of motion. Neurological: Alert and oriented to person, place, and time. Psychiatric: Normal mood and affect. Behavior is normal. Extremities: warm and well perfused : Indwelling Osorio catheter is clotted Catheter irrigation: Urine in tuning noted to be thick and clotted. 20 German catheter that was intact. Unable to aspirate the blood clot. Betadine placed and the balloon was advanced. I hand irrigated with 250 cc of saline.to pink tinged urine on return. I was able to aspirate small - moderate clots. CBI started at a slow rate. Patient tolerated the procedure well. Assessment /Plan Principal Problem: ST elevation myocardial infarction (STEMI) (HCC) 60 y.o. male with gross hematuria with clot retention. Titrate CBI to keep the urinary output lightpink to clear. May need to irrigate with 60 mL of saline as needed for occlusion. Dr Trejo made aware and will evaluate the patient later this morning. Please call if you have any questions. Lise Suggs NP [facility] Office [phone] 05/04/2021 8:55 AM F FORESTER F FORESTER F FORESTER * Plan of Care - Betty Rogers RN - 05/03/2021 6:04 PM CST Goals: Clinical Goals for the Shift: stable vitals, safety, comfort, monitor IABP, stable labs Summary: preped for surgery tomorrow bath x 2 tonight continue anticoags Problem: Health Behavior: Goal: Understanding of discharge needs will improve Outcome: Progressing Problem: Activity: Goal: Activity Intolerance will improve Outcome: Progressing Problem: Cardiac: Goal: Ability to achieve and maintain adequate cardiopulmonary perfusion will improve Outcome: Progressing Goal: Hemodynamic stability will improve Outcome: Progressing Goal: Will show no evidence of cardiac arrhythmias Outcome: Progressing Problem: Lack of Knowledge: Goal: Verbalization of understanding the information provided will improve Outcome: Progressing Problem: Coping: Goal: Ability to adjust to condition or change in health will improve Outcome: Progressing Goal: Ability to state activities that reduce stress will improve Outcome: Progressing Goal: Level of anxiety will decrease Outcome: Progressing Problem: Fluid Volume: Goal: Risk for excess fluid volume will decrease Outcome: Progressing Problem: Health Behavior: Goal: Identification of resources available to assist in meeting health care needs will improve Outcome: Progressing Goal: Compliance with treatment plan for underlying cause of condition will improve Outcome: Progressing Problem: Physical Regulation: Goal: Complications related to the disease process, condition or treatment will be avoided or minimized Outcome: Progressing Goal: Diagnostic test results will improve Outcome: Progressing Problem: Sensory: Goal: General experience of comfort will improve Outcome: Progressing Goal: Satisfaction with pain management regimen will improve Outcome: Progressing Problem: Activity: Goal: Mobility will improve Outcome: Progressing Problem: Lack of Knowledge: Goal: Understanding of ways to prevent future skin breakdown will improve Outcome: Progressing Goal: Ability to identify appropriate dietary choices will improve Outcome: Progressing Problem: Nutritional: Goal: Dietary intake will improve Outcome: Progressing Goal: Ability to maintain a balanced intake and output will improve Outcome: Progressing Problem: Skin Integrity: Goal: Risk for impaired skin integrity will decrease Outcome: Progressing Goal: Ability to demonstrate warm and dry skin will improve Outcome: Progressing Goal: Circulation will improve to fullest extent possible Outcome: Progressing Problem: Lack of Knowledge: Goal: Ability to state ways to decrease the risk of falls will improve Outcome: Progressing Problem: Safety: Goal: Will remain free from falls Outcome: Progressing Goal: Will remain free from injury from falls Outcome: Progressing Goal: Will remain free from falls and injury in home environment Outcome: Progressing F FORESTER * Plan of Care - Jessica Adams RN - 05/02/2021 11:08 PM CST Goals: RN maintain comfort and safety with balloon pump Summary: pt complaint with bed rest F FORESTER * Plan of Care - Jessica Adams RN - 05/02/2021 3:24 AM CST Goals: RN maintain comfort and safety with balloon pump Summary: pt complaint with bed rest F FORESTER documented in this encounter Plan of Treatment Pending Results Name Type Priority Associated Diagnoses Date /Time Cardiac Catheterization Cardiac Cath Routine ST elevation myocardial infarction (STEMI), unspecified artery (HCC) 05/01/2021 6:40 PM STAFF FORESTER Scheduled Orders Name Type Priority Associated Diagnoses Orde r Schedule ECG [address] elevation myocardial infarction involving left anterior descending (LAD) coronary artery (HCC) Once for 1 Occurrences starting 05/05/2021 until 05/05/2021 documented as of this encounter Procedures Procedure Name Priority Date/Time Associated Diagnosis Comments POCT GLUCOSE DEVICE Routine 06/03/2021 12:21 PM STAFF FORESTER HOME O2 EVAL (DESATURATION SCREEN) Routine 06/03/2021 8:45 AM STAFF FORESTER POCT GLUCOSE DEVICE Routine 06/03/2021 6 :33 AM STAFF FORESTER EGFR Routine 06/03/2021 3:04 AM STAFF FORESTER CBC WITHOUT DIFFERENTIAL Routine 06/03/2021 3:04 AM STAFF FORESTER PHOSPHORUS Routine 06/03/2021 3:04 AM STAFF FORESTER MAGNESIUM Routine 06/03/2021 3:04 AM STAFF FORESTER BASIC METABOLIC PANEL Routine 06/03/2021 3:04 AM STAFF FORESTER POCT GLUCOSE DEVICE Routine 06/02/2021 8 :34 PM STAFF FORESTER POCT GLUCOSE DEVICE Routine 06/02/2021 4 :21 PM STAFF FORESTER POCT GLUCOSE DEVICE Routine 06/02/2021 11:37 AM STAFF FORESTER POCT GLUCOSE DEVICE Routine 06/02/2021 6 :46 AM STAFF FORESTER EGFR Routine 06/02/2021 5:37 AM STAFF FORESTER CBC WITHOUT DIFFERENTIAL Routine 06/02/2021 5:37 AM STAFF FORESTER PHOSPHORUS Routine 06/02/2021 5:37 AM STAFF FORESTER MAGNESIUM Routine 06/02/2021 5:37 AM STAFF FORESTER VANCOMYCIN LEVEL TROUGH Timed 06/02/2021 5:37 AM STAFF FORESTER BASIC METABOLIC PANEL Routine 06/02/2021 5:37 AM STAFF FORESTER POCT GLUCOSE DEVICE Routine 06/02/2021 2 :07 AM STAFF FORESTER POCT GLUCOSE DEVICE Routine 06/01/2021 9 :18 PM STAFF FORESTER POCT GLUCOSE DEVICE Routine 06/01/2021 5 :38 PM STAFF FORESTER PEP THERAPY Routine 06/01/2021 3:00 PM STAFF FORESTER PEP THERAPY Routine 06/01/2021 3:00 PM STAFF FORESTER POCT GLUCOSE DEVICE Routine 06/01/2021 11:45 AM STAFF FORESTER EGFR Routine 06/01/2021 11:32 AM STAFF FORESTER CBC WITHOUT DIFFERENTIAL Routine 06/01/2021 11:32 AM STAFF FORESTER PHOSPHORUS Routine 06/01/2021 11:32 AM STAFF FORESTER MAGNESIUM Routine 06/01/2021 11:32 AM STAFF FORESTER BASIC METABOLIC PANEL Routine 06/01/2021 11:32 AM STAFF FORESTER US VEIN DUPLEX LOWER EXTREMITY BILATERAL COMPLETE IP Routine 06/01/2021 9:20 AM STAFF FORESTER PEP THERAPY Routine 06/01/2021 7:00 AM STAFF FORESTER PEP THERAPY Routine 06/01/2021 7:00 AM STAFF FORESTER POCT GLUCOSE DEVICE Routine 06/01/2021 6 :30 AM STAFF FORESTER POCT GLUCOSE DEVICE Routine 06/01/2021 2 :52 AM STAFF FORESTER POCT GLUCOSE DEVICE Routine 05/31/2021 9 :47 PM STAFF FORESTER PEP THERAPY Routine 05/31/2021 7:00 PM STAFF FORESTER POCT GLUCOSE DEVICE Routine 05/31/2021 6 :05 PM STAFF FORESTER PEP THERAPY Routine 05/31/2021 3:00 PM STAFF FORESTER PEP THERAPY Routine 05/31/2021 3:00 PM STAFF FORESTER POCT GLUCOSE DEVICE Routine 05/31/2021 12:59 PM STAFF FORESTER PEP THERAPY Routine 05/31/2021 11:00 AM STAFF FORESTER PEP THERAPY Routine 05/31/2021 11:00 AM STAFF FORESTER POCT GLUCOSE DEVICE Routine 05/31/2021 8 :04 AM STAFF FORESTER PEP THERAPY Routine 05/31/2021 7:00 AM STAFF FORESTER PEP THERAPY Routine 05/31/2021 7:00 AM STAFF FORESTER XR CHEST 1 VIEW IP Routine 05/31/2021 6:39 AM STAFF FORESTER EGFR Routine 05/31/2021 5:39 AM STAFF FORESTER CBC WITHOUT DIFFERENTIAL Routine 05/31/2021 5:39 AM STAFF FORESTER PHOSPHORUS Routine 05/31/2021 5:39 AM STAFF FORESTER MAGNESIUM Routine 05/31/2021 5:39 AM STAFF FORESTER VANCOMYCIN LEVEL TROUGH Timed 05/31/2021 5:39 AM STAFF FORESTER BASIC METABOLIC PANEL Routine 05/31/2021 5:39 AM STAFF FORESTER POCT GLUCOSE DEVICE Routine 05/30/2021 8 :09 PM STAFF FORESTER CRITICAL CARE Routine 05/30/2021 8:[address] elevation myocardial infarction (STEMI), unspecified artery (HCC) PEP THERAPY Routine 05/30/2021 7:00 PM STAFF FORESTER PEP THERAPY Routine 05/30/2021 7:00 PM STAFF FORESTER POCT GLUCOSE DEVICE Routine 05/30/2021 5 :17 PM STAFF FORESTER PEP THERAPY Routine 05/30/2021 3:00 PM STAFF FORESTER PEP THERAPY Routine 05/30/2021 3:00 PM STAFF FORESTER POCT GLUCOSE DEVICE Routine 05/30/2021 12:08 PM STAFF FORESTER PEP THERAPY Routine 05/30/2021 11:00 AM STAFF FORESTER PEP THERAPY Routine 05/30/2021 11:00 AM STAFF FORESTER POCT GLUCOSE DEVICE Routine 05/30/2021 7 :54 AM STAFF FORESTER PEP THERAPY Routine 05/30/2021 7:00 AM STAFF FORESTER PEP THERAPY Routine 05/30/2021 7:00 AM STAFF FORESTER CRITICAL CARE Routine 05/30/2021 7:[address] elevation myocardial infarction (STEMI), unspecified artery (HCC) EGFR Routine 05/30/2021 4:05 AM STAFF FORESTER CBC WITHOUT DIFFERENTIAL Routine 05/30/2021 4:05 AM STAFF FORESTER PHOSPHORUS Routine 05/30/2021 4:05 AM STAFF FORESTER MAGNESIUM Routine 05/30/2021 4:05 AM STAFF FORESTER BASIC METABOLIC PANEL Routine 05/30/2021 4:05 AM STAFF FORESTER POCT GLUCOSE DEVICE Routine 05/29/2021 9 :43 PM STAFF FORESTER CRITICAL CARE Routine 05/29/2021 8:[address] elevation myocardial infarction (STEMI), unspecified artery (HCC) PEP THERAPY Routine 05/29/2021 7:00 PM STAFF FORESTER PEP THERAPY Routine 05/29/2021 7:00 PM STAFF FORESTER VANCOMYCIN LEVEL TROUGH Timed 05/29/2021 5:09 PM STAFF FORESTER POCT GLUCOSE DEVICE Routine 05/29/2021 4 :56 PM STAFF FORESTER PEP THERAPY Routine 05/29/2021 3:00 PM STAFF FORESTER PEP THERAPY Routine 05/29/2021 3:00 PM STAFF FORESTER BETA-HYDROXYBUTYRATE Routine 05/29/2021 2:42 PM STAFF FORESTER POCT GLUCOSE DEVICE Routine 05/29/2021 11:55 AM STAFF FORESTER PEP THERAPY Routine 05/29/2021 11:00 AM STAFF FORESTER PEP THERAPY Routine 05/29/2021 11:00 AM STAFF FORESTER POCT GLUCOSE DEVICE Routine 05/29/2021 8 :01 AM STAFF FORESTER PEP THERAPY Routine 05/29/2021 7:00 AM STAFF FORESTER PEP THERAPY Routine 05/29/2021 7:00 AM STAFF FORESTER CRITICAL CARE Routine 05/29/2021 7:00 AM STAFF FORESTER COVID Acute respiratory failure due to COVID-19 (CMS/HCC) (HCC) EGFR Routine 05/29/2021 5:28 AM STAFF FORESTER CBC WITHOUT DIFFERENTIAL Routine 05/29/2021 5:28 AM STAFF FORESTER PHOSPHORUS Routine 05/29/2021 5:28 AM STAFF FORESTER MAGNESIUM Routine 05/29/2021 5:28 AM STAFF FORESTER BASIC METABOLIC PANEL Routine 05/29/2021 5:28 AM STAFF FORESTER CRITICAL CARE Routine 05/28/2021 10:32 PM STAFF FORESTER Acute respiratory failure due to COVID-19 (CMS/HCC) (HCC) POCT GLUCOSE DEVICE Routine 05/28/2021 7 :55 PM STAFF FORESTER PEP THERAPY Routine 05/28/2021 7:00 PM STAFF FORESTER PEP THERAPY Routine 05/28/2021 7:00 PM STAFF FORESTER POCT GLUCOSE DEVICE Routine 05/28/2021 5 :47 PM STAFF FORESTER PEP THERAPY Routine 05/28/2021 3:00 PM STAFF FORESTER PEP THERAPY Routine 05/28/2021 3:00 PM STAFF FORESTER POCT GLUCOSE DEVICE Routine 05/28/2021 11:53 AM STAFF FORESTER CRITICAL CARE Routine 05/28/2021 11:04 AM STAFF FORESTER COVID Acute respiratory failure due to COVID-19 (CMS/HCC) (HCC) PEP THERAPY Routine 05/28/2021 11:00 AM STAFF FORESTER PEP THERAPY Routine 05/28/2021 11:00 AM STAFF FORESTER POCT GLUCOSE DEVICE Routine 05/28/2021 9 :49 AM STAFF FORESTER PEP THERAPY Routine 05/28/2021 7:00 AM STAFF FORESTER PEP THERAPY Routine 05/28/2021 7:00 AM STAFF FORESTER POCT GLUCOSE DEVICE Routine 05/28/2021 6 :42 AM STAFF FORESTER XR CHEST 1 VIEW IP Routine 05/28/2021 6:13 AM STAFF FORESTER POCT GLUCOSE DEVICE Routine 05/28/2021 4 :40 AM STAFF FORESTER EGFR Routine 05/28/2021 2:47 AM STAFF FORESTER CBC WITHOUT DIFFERENTIAL Routine 05/28/2021 2:47 AM STAFF FORESTER PHOSPHORUS Routine 05/28/2021 2:47 AM STAFF FORESTER MAGNESIUM Routine 05/28/2021 2:47 AM STAFF FORESTER VANCOMYCIN LEVEL TROUGH Timed 05/28/2021 2:47 AM STAFF FORESTER BASIC METABOLIC PANEL Routine 05/28/2021 2:47 AM STAFF FORESTER POCT GLUCOSE DEVICE Routine 05/28/2021 1 :22 AM STAFF FORESTER POCT GLUCOSE DEVICE Routine 05/27/2021 10:17 PM STAFF FORESTER CRITICAL CARE Routine 05/27/2021 8:35 PM STAFF FORESTER Acute respiratory failure due to COVID-19 (CMS/HCC) (HCC) POCT GLUCOSE DEVICE Routine 05/27/2021 5 :56 PM STAFF FORESTER CRITICAL CARE Routine 05/27/2021 2:44 PM STAFF FORESTER Acute respiratory failure due to COVID-19 (CMS/HCC) (HCC) POCT GLUCOSE DEVICE Routine 05/27/2021 12:19 PM STAFF FORESTER POCT GLUCOSE DEVICE Routine 05/27/2021 8 :11 AM STAFF FORESTER POCT GLUCOSE DEVICE Routine 05/27/2021 6 :47 AM STAFF FORESTER EGFR Routine 05/27/2021 6:40 AM STAFF FORESTER CBC WITHOUT DIFFERENTIAL Routine 05/27/2021 6:40 AM STAFF FORESTER PHOSPHORUS Routine 05/27/2021 6:40 AM STAFF FORESTER MAGNESIUM Routine 05/27/2021 6:40 AM STAFF FORESTER BASIC METABOLIC PANEL Routine 05/27/2021 6:40 AM STAFF FORESTER XR CHEST 1 VIEW IP Routine 05/27/2021 5:40 AM STAFF FORESTER POCT GLUCOSE DEVICE Routine 05/27/2021 12:41 AM STAFF FORESTER POCT GLUCOSE DEVICE Routine 05/26/2021 10:24 PM STAFF FORESTER CRITICAL CARE Routine 05/26/2021 9:59 PM STAFF FORESTER Chronic obstructive pulmonary disease, unspecified COPD type (HCC) Pneumonia due to COVID-19 virus Acute hypoxemic respiratory failure due to COVID-19 (CMS/HCC) (HCC) S/P CABG x 4 ST elevation myocardial infarction involving left circumflex coronary artery (HCC) POCT GLUCOSE DEVICE Routine 05/26/2021 5 :03 PM STAFF FORESTER CRITICAL CARE Routine 05/26/2021 4:[address] elevation myocardial infarction (STEMI), unspecified artery (HCC) COVID URINALYSIS AND REFLEX TO MICROSCOPIC STAT 05/26/2021 4:01 PM STAFF FORESTER STREP PNEUMONIAE AG, URINE Routine 05/26/2021 4:01 PM STAFF FORESTER LEGIONELLA ANTIGEN, URINE Routine 05/26/2021 4:01 PM STAFF FORESTER URINALYSIS, MICROSCOPIC ONLY STAT 05/26/2021 4:01 PM STAFF FORESTER BLOOD CULTURE STAT 05/26/2021 1:43 PM STAFF FORESTER BLOOD CULTURE STAT 05/26/2021 1:43 PM STAFF FORESTER MRSA ONLY (STAPHYLOCOCCUS AUREUS) PCR STAT 05/26/2021 1:31 PM STAFF FORESTER POCT GLUCOSE DEVICE Routine 05/26/2021 1 :19 PM STAFF FORESTER PNEUMONIA PCR Routine 05/26/2021 11:32 AM STAFF FORESTER PNEUMONIA PCR WITH AEROBIC CULTURE AND GRAM STAIN Routine 05/26/2021 11:32 AM STAFF FORESTER PEP THERAPY Routine 05/26/2021 10:21 AM STAFF FORESTER POCT GLUCOSE DEVICE Routine 05/26/2021 8 :42 AM STAFF FORESTER PEP THERAPY Routine 05/26/2021 7:00 AM STAFF FORESTER POCT GLUCOSE DEVICE Routine 05/26/2021 6 :32 AM STAFF FORESTER EGFR Routine 05/26/2021 6:23 AM STAFF FORESTER D-DIMER, QUANTITATIVE Routine 05/26/2021 6:23 AM STAFF FORESTER CBC WITHOUT DIFFERENTIAL Routine 05/26/2021 6:23 AM STAFF FORESTER CRP (ACUTE PHASE) Routine 05/26/2021 6:2 3 AM STAFF FORESTER PHOSPHORUS Routine 05/26/2021 6:23 AM STAFF FORESTER MAGNESIUM Routine 05/26/2021 6:23 AM STAFF FORESTER BASIC METABOLIC PANEL Routine 05/26/2021 6:23 AM STAFF FORESTER XR CHEST 1 VIEW IP Routine 05/26/2021 6:07 AM STAFF FORESTER POCT GLUCOSE DEVICE Routine 05/25/2021 11:59 PM STAFF FORESTER CRITICAL CARE Routine 05/25/2021 9:14 PM STAFF FORESTER Chronic obstructive pulmonary disease, unspecified COPD type (HCC) Pulmonary edema with congestive heart failure (CMS/HCC) (HCC) Pneumonia due to COVID-19 virus Acute hypoxemic respiratory failure due to COVID-19 (CMS/HCC) (HCC) S/P CABG x 4 POCT GLUCOSE DEVICE Routine 05/25/2021 8 :15 PM STAFF FORESTER POCT GLUCOSE DEVICE Routine 05/25/2021 5 :39 PM STAFF FORESTER CRITICAL CARE Routine 05/25/2021 4:[address] elevation myocardial infarction (STEMI), unspecified artery (HCC) COVID POCT GLUCOSE DEVICE Routine 05/25/2021 12:[address] CHEST PE W CONTRAST Critical/Life-T hreatening 05/25/2021 10:22 AM STAFF FORESTER BLOOD GAS, ARTERIAL STAT 05/25/2021 9 :51 AM STAFF FORESTER POCT GLUCOSE DEVICE Routine 05/25/2021 9 :20 AM STAFF FORESTER PEP THERAPY Routine 05/25/2021 8:55 AM STAFF FORESTER PEP THERAPY Routine 05/25/2021 8:55 AM STAFF FORESTER PEP THERAPY Routine 05/25/2021 8:55 AM STAFF FORESTER XR CHEST 1 VIEW IP Routine 05/25/2021 6:25 AM STAFF FORESTER EGFR Routine 05/25/2021 3:00 AM STAFF FORESTER CBC WITHOUT DIFFERENTIAL Routine 05/25/2021 3:00 AM STAFF FORESTER PHOSPHORUS Routine 05/25/2021 3:00 AM STAFF FORESTER MAGNESIUM Routine 05/25/2021 3:00 AM STAFF FORESTER BASIC METABOLIC PANEL Routine 05/25/2021 3:00 AM STAFF FORESTER CRITICAL CARE Routine 05/24/2021 11:38 PM STAFF FORESTER Type 2 diabetes mellitus with other specified complication, without long-term current use of insulin (HCC) Chronic obstructive pulmonary disease, unspecified COPD type (HCC) Pneumonia due to COVID-19 virus Acute hypoxemic respiratory failure due to COVID-19 (CMS/HCC) (HCC) S/P CABG x 4 ST elevation myocardial infarction involving left circumflex coronary artery (HCC) POCT GLUCOSE DEVICE Routine 05/24/2021 11:31 PM STAFF FORESTER POCT GLUCOSE DEVICE Routine 05/24/2021 7 :52 PM STAFF FORESTER POCT GLUCOSE DEVICE Routine 05/24/2021 5 :04 PM STAFF FORESTER CRITICAL CARE Routine 05/24/2021 1:[address] elevation myocardial infarction (STEMI), unspecified artery (HCC) POCT GLUCOSE DEVICE Routine 05/24/2021 12:18 PM STAFF FORESTER POCT GLUCOSE DEVICE Routine 05/24/2021 8 :51 AM STAFF FORESTER XR CHEST 1 VIEW IP Routine 05/24/2021 6:58 AM STAFF FORESTER POCT GLUCOSE DEVICE Routine 05/24/2021 6 :46 AM STAFF FORESTER EGFR Routine 05/24/2021 3:48 AM STAFF FORESTER IRON PROFILE W/ IBC Routine 05/24/2021 3 :48 AM STAFF FORESTER ALBUMIN CREATININE RATIO, URINE Routine 05/24/2021 3:48 AM STAFF FORESTER HEPATITIS PANEL, ACUTE Routine 3:48 AM STAFF FORESTER VITAMIN D 25 HYDROXY Routine 05/24/2021 3:48 AM STAFF FORESTER CBC WITHOUT DIFFERENTIAL Routine 05/24/2021 3:48 AM STAFF FORESTER PHOSPHORUS Routine 05/24/2021 3:48 AM STAFF FORESTER MAGNESIUM Routine 05/24/2021 3:48 AM STAFF FORESTER FOLATE Routine 05/24/2021 3:48 AM STAFF FORESTER FERRITIN Routine 05/24/2021 3:48 AM STAFF FORESTER VITAMIN B12 Routine 05/24/2021 3:48 AM STAFF FORESTER LIPID PANEL Routine 05/24/2021 3:48 AM STAFF FORESTER BASIC METABOLIC PANEL Routine 05/24/2021 3:48 AM STAFF FORESTER POCT GLUCOSE DEVICE Routine 05/23/2021 11:21 PM STAFF FORESTER POCT GLUCOSE DEVICE Routine 05/23/2021 9 :11 PM STAFF FORESTER CRITICAL CARE Routine 05/23/2021 8:[address] elevation myocardial infarction involving left anterior descending (LAD) coronary artery ([facility]) Chronic obstructive pulmonary disease, unspecified COPD type ([facility]) Pneumonia due to COVID-19 virus Acute hypoxemic respiratory failure due to COVID-19 (CMS/HCC) (HCC) S/P CABG x 4 ST elevation myocardial infarction involving left circumflex coronary artery ([facility]) POCT GLUCOSE DEVICE Routine 05/23/2021 6 :14 PM STAFF FORESTER CRITICAL CARE Routine 05/23/2021 3:32 PM STAFF FORESTER Pneumonia due to COVID-19 virus POCT GLUCOSE DEVICE Routine 05/23/2021 2 :43 PM STAFF FORESTER POCT GLUCOSE DEVICE Routine 05/23/2021 1 :12 PM STAFF FORESTER POCT GLUCOSE DEVICE Routine 05/23/2021 11:56 AM STAFF FORESTER POCT GLUCOSE DEVICE Routine 05/23/2021 10:37 AM STAFF FORESTER POCT GLUCOSE DEVICE Routine 05/23/2021 9 :26 AM STAFF FORESTER POCT GLUCOSE DEVICE Routine 05/23/2021 7 :12 AM STAFF FORESTER POCT GLUCOSE DEVICE Routine 05/23/2021 6 :09 AM STAFF FORESTER XR CHEST 1 VIEW IP Routine 05/23/2021 5:19 AM STAFF FORESTER POCT GLUCOSE DEVICE Routine 05/23/2021 4 :58 AM STAFF FORESTER POCT GLUCOSE DEVICE Routine 05/23/2021 4 :02 AM STAFF FORESTER EGFR Routine 05/23/2021 3:18 AM STAFF FORESTER POCT GLUCOSE DEVICE Routine 05/23/2021 3 :18 AM STAFF FORESTER CBC WITHOUT DIFFERENTIAL Routine 05/23/2021 3:18 AM STAFF FORESTER PHOSPHORUS Routine 05/23/2021 3:18 AM STAFF FORESTER MAGNESIUM Routine 05/23/2021 3:18 AM STAFF FORESTER BASIC METABOLIC PANEL Routine 05/23/2021 3:18 AM STAFF FORESTER POCT GLUCOSE DEVICE Routine 05/23/2021 2 :05 AM STAFF FORESTER POCT GLUCOSE DEVICE Routine 05/23/2021 1 :10 AM STAFF FORESTER POCT GLUCOSE DEVICE Routine 05/22/2021 11:59 PM STAFF FORESTER CRITICAL CARE Routine 05/22/2021 11:35 PM STAFF FORESTER Chronic obstructive pulmonary disease, unspecified COPD type (HCC) Pneumonia due to COVID-19 virus Acute hypoxemic respiratory failure due to COVID-19 (CMS/HCC) (HCC) POCT GLUCOSE DEVICE Routine 05/22/2021 11:06 PM STAFF FORESTER POCT GLUCOSE DEVICE Routine 05/22/2021 10:04 PM STAFF FORESTER POCT GLUCOSE DEVICE Routine 05/22/2021 9 :21 PM STAFF FORESTER POCT GLUCOSE DEVICE Routine 05/22/2021 8 :18 PM STAFF FORESTER POCT GLUCOSE DEVICE Routine 05/22/2021 5 :56 PM STAFF FORESTER POCT GLUCOSE DEVICE Routine 05/22/2021 4 :55 PM STAFF FORESTER POCT GLUCOSE DEVICE Routine 05/22/2021 3 :47 PM STAFF FORESTER POCT GLUCOSE DEVICE Routine 05/22/2021 2 :35 PM STAFF FORESTER POCT GLUCOSE DEVICE Routine 05/22/2021 1 :32 PM STAFF FORESTER POCT GLUCOSE DEVICE Routine 05/22/2021 12:27 PM STAFF FORESTER POCT GLUCOSE DEVICE Routine 05/22/2021 11:30 AM STAFF FORESTER POCT GLUCOSE DEVICE Routine 05/22/2021 10:35 AM STAFF FORESTER POCT GLUCOSE DEVICE Routine 05/22/2021 9 :32 AM STAFF FORESTER XR CHEST 1 VIEW IP Routine 05/22/2021 8:36 AM STAFF FORESTER POCT GLUCOSE DEVICE Routine 05/22/2021 8 :28 AM STAFF FORESTER CRITICAL CARE Routine 05/22/2021 7:[address] elevation myocardial infarction (STEMI), unspecified artery (HCC) POCT GLUCOSE DEVICE Routine 05/22/2021 6 :25 AM STAFF FORESTER EGFR Routine 05/22/2021 3:49 AM STAFF FORESTER PRO B-TYPE NATRIURETIC PEPTIDE Routine 05/22/2021 3:49 AM STAFF FORESTER CBC WITHOUT DIFFERENTIAL Routine 05/22/2021 3:49 AM STAFF FORESTER PHOSPHORUS Routine 05/22/2021 3:49 AM STAFF FORESTER MAGNESIUM Routine 05/22/2021 3:49 AM STAFF FORESTER BASIC METABOLIC PANEL Routine 05/22/2021 3:49 AM STAFF FORESTER POCT GLUCOSE DEVICE Routine 05/22/2021 2 :27 AM STAFF FORESTER POCT GLUCOSE DEVICE Routine 05/21/2021 11:39 PM STAFF FORESTER CRITICAL CARE Routine 05/21/2021 11:31 PM STAFF FORESTER Pneumonia due to COVID-19 virus POCT GLUCOSE DEVICE Routine 05/21/2021 9 :41 PM STAFF FORESTER EGFR Add On 05/21/2021 9:18 PM STAFF FORESTER CALCIUM, IONIZED STAT 05/21/2021 9:18 PM STAFF FORESTER PHOSPHORUS STAT 05/21/2021 9:18 PM STAFF FORESTER MAGNESIUM STAT 05/21/2021 9:18 PM STAFF FORESTER BASIC METABOLIC PANEL Add-On 05/21/2021 9:18 PM STAFF FORESTER POCT GLUCOSE DEVICE Routine 05/21/2021 8 :14 PM STAFF FORESTER POCT GLUCOSE DEVICE Routine 05/21/2021 3 :46 PM STAFF FORESTER POCT GLUCOSE DEVICE Routine 05/21/2021 11:59 AM STAFF FORESTER POCT GLUCOSE DEVICE Routine 05/21/2021 8 :06 AM STAFF FORESTER CRITICAL CARE Routine 05/21/2021 8:00 AM STAFF FORESTER Pulmonary edema with congestive heart failure (CMS/HCC) (HCC) EGFR Routine 05/21/2021 4:13 AM STAFF FORESTER PHOSPHORUS Routine 05/21/2021 4:13 AM STAFF FORESTER MAGNESIUM Routine 05/21/2021 4:13 AM STAFF FORESTER BASIC METABOLIC PANEL Routine 05/21/2021 4:13 AM STAFF FORESTER CBC WITHOUT DIFFERENTIAL Routine 05/21/2021 3:57 AM STAFF FORESTER POCT GLUCOSE DEVICE Routine 05/21/2021 2 :57 AM STAFF FORESTER CRITICAL CARE Routine 05/20/2021 11:33 PM STAFF FORESTER Pneumonia due to COVID-19 virus POCT GLUCOSE DEVICE Routine 05/20/2021 7 :55 PM STAFF FORESTER POCT GLUCOSE DEVICE Routine 05/20/2021 5 :03 PM STAFF FORESTER POCT GLUCOSE DEVICE Routine 05/20/2021 12:50 PM STAFF FORESTER POCT GLUCOSE DEVICE Routine 05/20/2021 9 :02 AM STAFF FORESTER CRITICAL CARE Routine 05/20/2021 8:[address] elevation myocardial infarction (STEMI), unspecified artery (HCC) EGFR Timed 05/20/2021 3:28 AM STAFF FORESTER CBC WITHOUT DIFFERENTIAL Routine 05/20/2021 3:28 AM STAFF FORESTER CRP (ACUTE PHASE) Add-On 05/20/2021 3:2 8 AM STAFF FORESTER PHOSPHORUS Routine 05/20/2021 3:28 AM STAFF FORESTER MAGNESIUM Routine 05/20/2021 3:28 AM STAFF FORESTER BASIC METABOLIC PANEL Timed 05/20/2021 3:28 AM STAFF FORESTER POCT GLUCOSE DEVICE Routine 05/20/2021 1 :28 AM STAFF FORESTER EGFR Timed 05/20/2021 12:25 AM STAFF FORESTER BASIC METABOLIC PANEL Timed 05/20/2021 12:25 AM STAFF FORESTER INFLUENZA A/B, RSV, AND COVID-19 PCR Routine 05/19/2021 8:54 PM STAFF FORESTER POCT GLUCOSE DEVICE Routine 05/19/2021 8 :37 PM STAFF FORESTER CRITICAL CARE Routine 05/19/2021 7:[address] elevation myocardial infarction (STEMI), unspecified artery (HCC) EGFR Timed 05/19/2021 4:45 PM STAFF FORESTER BASIC METABOLIC PANEL Timed 05/19/2021 4:45 PM STAFF FORESTER POCT GLUCOSE DEVICE Routine 05/19/2021 4 :31 PM STAFF FORESTER SNIFF TEST ED Urgent/IP Urgent 05/19/2021 4:05 PM STAFF FORESTER POCT GLUCOSE DEVICE Routine 05/19/2021 1 :[address] CHEST WO CONTRAST IP Routine 05/19/2021 11:19 AM STAFF FORESTER CRITICAL CARE Routine 05/19/2021 10:[address] elevation myocardial infarction (STEMI), unspecified artery (HCC) POCT GLUCOSE DEVICE Routine 05/19/2021 7 :18 AM STAFF FORESTER XR CHEST 1 VIEW IP Routine 05/19/2021 6:09 AM STAFF FORESTER CBC WITHOUT DIFFERENTIAL Routine 05/19/2021 4:56 AM STAFF FORESTER EGFR Timed 05/19/2021 4:44 AM STAFF FORESTER PHOSPHORUS Routine 05/19/2021 4:44 AM STAFF FORESTER MAGNESIUM Routine 05/19/2021 4:44 AM STAFF FORESTER BASIC METABOLIC PANEL Timed 05/19/2021 4:44 AM STAFF FORESTER EGFR STAT 05/19/2021 2:05 AM STAFF FORESTER MAGNESIUM STAT 05/19/2021 2:05 AM STAFF FORESTER BASIC METABOLIC PANEL STAT 05/19/2021 2:05 AM STAFF FORESTER POCT GLUCOSE DEVICE Routine 05/19/2021 1 :43 AM STAFF FORESTER POTASSIUM, WHOLE BLOOD STAT 1:28 AM STAFF FORESTER D-DIMER, QUANTITATIVE STAT 05/18/2021 10:01 PM STAFF FORESTER LACTATE STAT 05/18/2021 9:37 PM STAFF FORESTER BETA-HYDROXYBUTYRATE STAT 05/18/2021 9:37 PM STAFF FORESTER HEPATIC FUNCTION PANEL Routine 9:37 PM STAFF FORESTER POCT GLUCOSE DEVICE Routine 05/18/2021 8 :00 PM STAFF FORESTER BLOOD GAS, ARTERIAL STAT 05/18/2021 7 :53 PM STAFF FORESTER CRITICAL CARE Routine 05/18/2021 7:[address] elevation myocardial infarction (STEMI), unspecified artery (HCC) EGFR Timed 05/18/2021 5:30 PM STAFF FORESTER EGFR STAT 05/18/2021 5:30 PM STAFF FORESTER THYROID FUNCTION CASCADE Add-On 05/18/2021 5:30 PM STAFF FORESTER MAGNESIUM STAT 05/18/2021 5:30 PM STAFF FORESTER BASIC METABOLIC PANEL STAT 05/18/2021 5:30 PM STAFF FORESTER BASIC METABOLIC PANEL Timed 05/18/2021 5:30 PM STAFF FORESTER POCT GLUCOSE DEVICE Routine 05/18/2021 5 :22 PM STAFF FORESTER CORTISOL Timed 05/18/2021 2:32 PM STAFF FORESTER CORTISOL Timed 05/18/2021 1:51 PM STAFF FORESTER POCT GLUCOSE DEVICE Routine 05/18/2021 1 :21 PM STAFF FORESTER EGFR Timed 05/18/2021 12:36 PM STAFF FORESTER CORTISOL Timed 05/18/2021 12:36 PM STAFF FORESTER BASIC METABOLIC PANEL Timed 05/18/2021 12:36 PM STAFF FORESTER POCT GLUCOSE DEVICE Routine 05/18/2021 12:15 PM STAFF FORESTER NM PULMONARY PERFUSION IMAGING IP Routine 05/18/2021 11:54 AM STAFF FORESTER POCT GLUCOSE DEVICE Routine 05/18/2021 11:06 AM STAFF FORESTER CRITICAL CARE Routine 05/18/2021 10:[address] elevation myocardial infarction (STEMI), unspecified artery (HCC) POCT GLUCOSE DEVICE Routine 05/18/2021 9 :04 AM STAFF FORESTER POCT GLUCOSE DEVICE Routine 05/18/2021 8 :01 AM STAFF FORESTER POCT GLUCOSE DEVICE Routine 05/18/2021 6 :56 AM STAFF FORESTER EGFR Timed 05/18/2021 6:19 AM STAFF FORESTER PRO B-TYPE NATRIURETIC PEPTIDE Routine 05/18/2021 6:19 AM STAFF FORESTER BASIC METABOLIC PANEL Timed 05/18/2021 6:19 AM STAFF FORESTER POCT GLUCOSE DEVICE Routine 05/18/2021 5 :52 AM STAFF FORESTER XR CHEST 1 VIEW IP Routine 05/18/2021 5:48 AM STAFF FORESTER POCT GLUCOSE DEVICE Routine 05/18/2021 4 :58 AM STAFF FORESTER POCT GLUCOSE DEVICE Routine 05/18/2021 3 :57 AM STAFF FORESTER POCT GLUCOSE DEVICE Routine 05/18/2021 3 :01 AM STAFF FORESTER EGFR Timed 05/18/2021 2:04 AM STAFF FORESTER CBC WITHOUT DIFFERENTIAL Routine 05/18/2021 2:04 AM STAFF FORESTER PHOSPHORUS Routine 05/18/2021 2:04 AM STAFF FORESTER MAGNESIUM Routine 05/18/2021 2:04 AM STAFF FORESTER BASIC METABOLIC PANEL Timed 05/18/2021 2:04 AM STAFF FORESTER POCT GLUCOSE DEVICE Routine 05/18/2021 2 :03 AM STAFF FORESTER POCT GLUCOSE DEVICE Routine 05/18/2021 1 :00 AM STAFF FORESTER POCT GLUCOSE DEVICE Routine 05/17/2021 11:55 PM STAFF FORESTER POCT GLUCOSE DEVICE Routine 05/17/2021 10:50 PM STAFF FORESTER POCT GLUCOSE DEVICE Routine 05/17/2021 9 :45 PM STAFF FORESTER EGFR Timed 05/17/2021 9:35 PM STAFF FORESTER BASIC METABOLIC PANEL Timed 05/17/2021 9:35 PM STAFF FORESTER XR CHEST 1 VIEW Critical/Life-T hreatening 05/17/2021 9:34 PM STAFF FORESTER POCT GLUCOSE DEVICE Routine 05/17/2021 8 :42 PM STAFF FORESTER POCT GLUCOSE DEVICE Routine 05/17/2021 7 :38 PM STAFF FORESTER CRITICAL CARE Routine 05/17/2021 7:[address] elevation myocardial infarction (STEMI), unspecified artery (HCC) POCT GLUCOSE DEVICE Routine 05/17/2021 6 :51 PM STAFF FORESTER POCT GLUCOSE DEVICE Routine 05/17/2021 6 :04 PM STAFF FORESTER POCT GLUCOSE DEVICE Routine 05/17/2021 5 :00 PM STAFF FORESTER POCT GLUCOSE DEVICE Routine 05/17/2021 3 :54 PM STAFF FORESTER EGFR STAT 05/17/2021 2:49 PM STAFF FORESTER MAGNESIUM STAT 05/17/2021 2:49 PM STAFF FORESTER BASIC METABOLIC PANEL STAT 05/17/2021 2:49 PM STAFF FORESTER POCT GLUCOSE DEVICE Routine 05/17/2021 2 :47 PM STAFF FORESTER POCT GLUCOSE DEVICE Routine 05/17/2021 1 :32 PM STAFF FORESTER POCT GLUCOSE DEVICE Routine 05/17/2021 12:27 PM STAFF FORESTER LACTATE STAT 05/17/2021 9:53 AM STAFF FORESTER EGFR Routine 05/17/2021 9:53 AM STAFF FORESTER BETA-HYDROXYBUTYRATE STAT 05/17/2021 9:53 AM STAFF FORESTER BASIC METABOLIC PANEL Routine 05/17/2021 9:53 AM STAFF FORESTER POCT GLUCOSE DEVICE Routine 05/17/2021 9 :36 AM STAFF FORESTER CRITICAL CARE Routine 05/17/2021 8:[address] elevation myocardial infarction (STEMI), unspecified artery (HCC) XR CHEST 1 VIEW ED Urgent/IP Urgent 05/17/2021 7:41 AM STAFF FORESTER OXYHEMOGLOBIN, CENTRAL VENOUS Routine 05/17/2021 4:50 AM STAFF FORESTER TRANSTHORACIC ECHO (TTE) COMPLETE W DOPPLER/CF WO CONTRAST Routine 05/17/2021 3:55 AM STAFF FORESTER OXYHEMOGLOBIN, CENTRAL VENOUS STAT 05/17/2021 3:43 AM STAFF FORESTER EGFR STAT 05/17/2021 3:33 AM STAFF FORESTER DIFFERENTIAL AUTO STAT 05/17/2021 3:3 3 AM STAFF FORESTER CALCIUM, IONIZED STAT 05/17/2021 3:33 AM STAFF FORESTER CBC WITH AUTO DIFFERENTIAL STAT 05/17/2021 3:33 AM STAFF FORESTER PHOSPHORUS STAT 05/17/2021 3:33 AM STAFF FORESTER MAGNESIUM STAT 05/17/2021 3:33 AM STAFF FORESTER COMPREHENSIVE METABOLIC PANEL STAT 05/17/2021 3:33 AM STAFF FORESTER CRITICAL CARE Routine 05/17/2021 3:31 AM STAFF FORESTER Pulmonary edema with congestive heart failure (CMS/HCC) (HCC) XR CHEST 1 VIEW Critical/Life-T hreatening 05/17/2021 2:34 AM STAFF FORESTER POCT GLUCOSE DEVICE Routine 05/17/2021 2 :21 AM STAFF FORESTER BLOOD GAS, ARTERIAL STAT 05/17/2021 2 :20 AM STAFF FORESTER POCT GLUCOSE DEVICE Routine 05/17/2021 2 :01 AM STAFF FORESTER POCT GLUCOSE DEVICE Routine 05/16/2021 10:45 PM STAFF FORESTER POCT GLUCOSE DEVICE Routine 05/16/2021 8 :47 PM STAFF FORESTER POCT GLUCOSE DEVICE Routine 05/16/2021 6 :10 PM STAFF FORESTER POCT GLUCOSE DEVICE Routine 05/16/2021 12:54 PM STAFF FORESTER POCT GLUCOSE DEVICE Routine 05/16/2021 7 :51 AM STAFF FORESTER EGFR Routine 05/16/2021 5:42 AM STAFF FORESTER CBC WITHOUT DIFFERENTIAL Routine 05/16/2021 5:42 AM STAFF FORESTER PHOSPHORUS Routine 05/16/2021 5:42 AM STAFF FORESTER MAGNESIUM Routine 05/16/2021 5:42 AM STAFF FORESTER BASIC METABOLIC PANEL Routine 05/16/2021 5:42 AM STAFF FORESTER XR CHEST 1 VIEW IP Routine 05/16/2021 5:29 AM STAFF FORESTER POCT GLUCOSE DEVICE Routine 05/16/2021 2 :43 AM STAFF FORESTER POCT GLUCOSE DEVICE Routine 05/15/2021 8 :42 PM STAFF FORESTER POCT GLUCOSE DEVICE Routine 05/15/2021 5 :05 PM STAFF FORESTER POCT GLUCOSE DEVICE Routine 05/15/2021 12:06 PM STAFF FORESTER POCT GLUCOSE DEVICE Routine 05/15/2021 7 :30 AM STAFF FORESTER XR CHEST 1 VIEW IP Routine 05/15/2021 6:02 AM STAFF FORESTER EGFR Routine 05/15/2021 5:33 AM STAFF FORESTER PHOSPHORUS Routine 05/15/2021 5:33 AM STAFF FORESTER MAGNESIUM Routine 05/15/2021 5:33 AM STAFF FORESTER BASIC METABOLIC PANEL Routine 05/15/2021 5:33 AM STAFF FORESTER CBC WITHOUT DIFFERENTIAL Routine 05/15/2021 5:32 AM STAFF FORESTER POCT GLUCOSE DEVICE Routine 05/15/2021 2 :40 AM STAFF FORESTER POCT GLUCOSE DEVICE Routine 05/14/2021 10:07 PM STAFF FORESTER POCT GLUCOSE DEVICE Routine 05/14/2021 5 :12 PM STAFF FORESTER POCT GLUCOSE DEVICE Routine 05/14/2021 1 :13 PM STAFF FORESTER CYSTOSCOPY 05/14/2021 12:22 PM STAFF FORESTER Gross Hematuria POCT GLUCOSE DEVICE Routine 05/14/2021 11:47 AM STAFF FORESTER EGFR Routine 05/14/2021 9:22 AM STAFF FORESTER CBC WITHOUT DIFFERENTIAL Routine 05/14/2021 9:22 AM STAFF FORESTER PHOSPHORUS Routine 05/14/2021 9:22 AM STAFF FORESTER MAGNESIUM Routine 05/14/2021 9:22 AM STAFF FORESTER BASIC METABOLIC PANEL Routine 05/14/2021 9:22 AM STAFF FORESTER POCT GLUCOSE DEVICE Routine 05/14/2021 9 :07 AM STAFF FORESTER POCT GLUCOSE DEVICE Routine 05/14/2021 6 :43 AM STAFF FORESTER XR CHEST 1 VIEW IP Routine 05/14/2021 6:07 AM STAFF FORESTER POCT GLUCOSE DEVICE Routine 05/13/2021 8 :13 PM STAFF FORESTER POCT GLUCOSE DEVICE Routine 05/13/2021 5 :[address] ABDOMEN PELVIS WO CONTRAST IP Routine 05/13/2021 2:31 PM STAFF FORESTER POCT GLUCOSE DEVICE Routine 05/13/2021 8 :16 AM STAFF FORESTER EGFR Routine 05/13/2021 6:13 AM STAFF FORESTER PHOSPHORUS Routine 05/13/2021 6:13 AM STAFF FORESTER MAGNESIUM Routine 05/13/2021 6:13 AM STAFF FORESTER BASIC METABOLIC PANEL Routine 05/13/2021 6:13 AM STAFF FORESTER CBC WITHOUT DIFFERENTIAL Routine 05/13/2021 6:12 AM STAFF FORESTER XR CHEST 1 VIEW IP Routine 05/13/2021 6:00 AM STAFF FORESTER POCT GLUCOSE DEVICE Routine 05/13/2021 1 :40 AM STAFF FORESTER POCT GLUCOSE DEVICE Routine 05/12/2021 10:04 PM STAFF FORESTER POCT GLUCOSE DEVICE Routine 05/12/2021 5 :43 PM STAFF FORESTER POCT GLUCOSE DEVICE Routine 05/12/2021 12:31 PM STAFF FORESTER APTT STAT 05/12/2021 12:26 PM STAFF FORESTER PROTIME-INR STAT 05/12/2021 12:26 PM STAFF FORESTER POCT GLUCOSE DEVICE Routine 05/12/2021 8 :10 AM STAFF FORESTER POCT GLUCOSE DEVICE Routine 05/12/2021 7 :09 AM STAFF FORESTER EGFR Routine 05/12/2021 6:38 AM STAFF FORESTER CBC WITHOUT DIFFERENTIAL Routine 05/12/2021 6:38 AM STAFF FORESTER PHOSPHORUS Routine 05/12/2021 6:38 AM STAFF FORESTER MAGNESIUM Routine 05/12/2021 6:38 AM STAFF FORESTER BASIC METABOLIC PANEL Routine 05/12/2021 6:38 AM STAFF FORESTER XR CHEST 1 VIEW IP Routine 05/12/2021 5:33 AM STAFF FORESTER POCT GLUCOSE DEVICE Routine 05/12/2021 1 :46 AM STAFF FORESTER POCT GLUCOSE DEVICE Routine 05/11/2021 9 :41 PM STAFF FORESTER POCT GLUCOSE DEVICE Routine 05/11/2021 6 :22 PM STAFF FORESTER POCT GLUCOSE DEVICE Routine 05/11/2021 11:28 AM STAFF FORESTER POCT GLUCOSE DEVICE Routine 05/11/2021 8 :59 AM STAFF FORESTER XR CHEST 1 VIEW IP Routine 05/11/2021 6:57 AM STAFF FORESTER EGFR Routine 05/11/2021 6:11 AM STAFF FORESTER CBC WITHOUT DIFFERENTIAL Routine 05/11/2021 6:11 AM STAFF FORESTER PHOSPHORUS Routine 05/11/2021 6:11 AM STAFF FORESTER MAGNESIUM Routine 05/11/2021 6:11 AM STAFF FORESTER BASIC METABOLIC PANEL Routine 05/11/2021 6:11 AM STAFF FORESTER POCT GLUCOSE DEVICE Routine 05/11/2021 5 :05 AM STAFF FORESTER POCT GLUCOSE DEVICE Routine 05/11/2021 1 :22 AM STAFF FORESTER POCT GLUCOSE DEVICE Routine 05/10/2021 9 :26 PM STAFF FORESTER POCT GLUCOSE DEVICE Routine 05/10/2021 4 :13 PM STAFF FORESTER POCT GLUCOSE DEVICE Routine 05/10/2021 12:24 PM STAFF FORESTER POCT GLUCOSE DEVICE Routine 05/10/2021 7 :57 AM STAFF FORESTER XR CHEST 1 VIEW IP Routine 05/10/2021 6:55 AM STAFF FORESTER POCT GLUCOSE DEVICE Routine 05/10/2021 5 :14 AM STAFF FORESTER EGFR Routine 05/10/2021 5:02 AM STAFF FORESTER CBC WITHOUT DIFFERENTIAL Routine 05/10/2021 5:02 AM STAFF FORESTER PHOSPHORUS Routine 05/10/2021 5:02 AM STAFF FORESTER MAGNESIUM Routine 05/10/2021 5:02 AM STAFF FORESTER BASIC METABOLIC PANEL Routine 05/10/2021 5:02 AM STAFF FORESTER POCT GLUCOSE DEVICE Routine 05/10/2021 1 :09 AM STAFF FORESTER POCT GLUCOSE DEVICE Routine 05/09/2021 10:52 PM STAFF FORESTER POCT GLUCOSE DEVICE Routine 05/09/2021 6 :13 PM STAFF FORESTER POCT GLUCOSE DEVICE Routine 05/09/2021 11:40 AM STAFF FORESTER POCT GLUCOSE DEVICE Routine 05/09/2021 7 :56 AM STAFF FORESTER XR CHEST 1 VIEW IP Routine 05/09/2021 6:12 AM STAFF FORESTER EGFR Routine 05/09/2021 6:12 AM STAFF FORESTER CBC WITHOUT DIFFERENTIAL Routine 05/09/2021 6:12 AM STAFF FORESTER PHOSPHORUS Routine 05/09/2021 6:12 AM STAFF FORESTER MAGNESIUM Routine 05/09/2021 6:12 AM STAFF FORESTER BASIC METABOLIC PANEL Routine 05/09/2021 6:12 AM STAFF FORESTER POCT GLUCOSE DEVICE Routine 05/09/2021 3 :58 AM STAFF FORESTER POCT GLUCOSE DEVICE Routine 05/09/2021 12:30 AM STAFF FORESTER POCT GLUCOSE DEVICE Routine 05/08/2021 10:32 PM STAFF FORESTER POCT GLUCOSE DEVICE Routine 05/08/2021 5 :38 PM STAFF FORESTER POCT GLUCOSE DEVICE Routine 05/08/2021 12:01 PM STAFF FORESTER POCT GLUCOSE DEVICE Routine 05/08/2021 7 :41 AM STAFF FORESTER EGFR Routine 05/08/2021 5:55 AM STAFF FORESTER CBC WITHOUT DIFFERENTIAL Routine 05/08/2021 5:55 AM STAFF FORESTER PHOSPHORUS Routine 05/08/2021 5:55 AM STAFF FORESTER MAGNESIUM Routine 05/08/2021 5:55 AM STAFF FORESTER BASIC METABOLIC PANEL Routine 05/08/2021 5:55 AM STAFF FORESTER XR CHEST 1 VIEW IP Routine 05/08/2021 5:34 AM STAFF FORESTER POCT GLUCOSE DEVICE Routine 05/08/2021 4 :08 AM STAFF FORESTER POCT GLUCOSE DEVICE Routine 05/08/2021 12:12 AM STAFF FORESTER POCT GLUCOSE DEVICE Routine 05/07/2021 7 :51 PM STAFF FORESTER POCT GLUCOSE DEVICE Routine 05/07/2021 3 :56 PM STAFF FORESTER CRITICAL CARE Routine 05/07/2021 3:[address] elevation myocardial infarction (STEMI), unspecified artery (HCC) TRANSFUSE RED BLOOD CELLS Timed 05/07/2021 2:48 PM STAFF FORESTER TRANSTHORACIC ECHO (TTE) LIMITED/FOLLOW UP W LTD DOPPLER/CF WO CONTRAST Routine 05/07/2021 12:37 PM STAFF FORESTER POCT GLUCOSE DEVICE Routine 05/07/2021 12:18 PM STAFF FORESTER TYPE AND SCREEN Timed 05/07/2021 10:36 AM STAFF FORESTER POCT GLUCOSE DEVICE Routine 05/07/2021 8 :55 AM STAFF FORESTER PREPARE RBC STAT 05/07/2021 8:32 AM STAFF FORESTER OXYHEMOGLOBIN, CENTRAL VENOUS Routine 05/07/2021 6:15 AM STAFF FORESTER XR CHEST 1 VIEW IP Routine 05/07/2021 5:33 AM STAFF FORESTER EGFR Routine 05/07/2021 4:21 AM STAFF FORESTER CBC WITHOUT DIFFERENTIAL Routine 05/07/2021 4:21 AM STAFF FORESTER PHOSPHORUS Routine 05/07/2021 4:21 AM STAFF FORESTER MAGNESIUM Routine 05/07/2021 4:21 AM STAFF FORESTER BASIC METABOLIC PANEL Routine 05/07/2021 4:21 AM STAFF FORESTER POCT GLUCOSE DEVICE Routine 05/07/2021 4 :19 AM STAFF FORESTER EGFR Timed 05/06/2021 11:14 PM STAFF FORESTER MAGNESIUM Timed 05/06/2021 11:14 PM STAFF FORESTER BASIC METABOLIC PANEL Timed 05/06/2021 11:14 PM STAFF FORESTER POCT GLUCOSE DEVICE Routine 05/06/2021 11:13 PM STAFF FORESTER POCT GLUCOSE DEVICE Routine 05/06/2021 8 :03 PM STAFF FORESTER POCT GLUCOSE DEVICE Routine 05/06/2021 3 :46 PM STAFF FORESTER EGFR STAT 05/06/2021 1:12 PM STAFF FORESTER CBC WITHOUT DIFFERENTIAL STAT 05/06/2021 1:12 PM STAFF FORESTER MAGNESIUM STAT 05/06/2021 1:12 PM STAFF FORESTER BASIC METABOLIC PANEL STAT 05/06/2021 1:12 PM STAFF FORESTER POCT GLUCOSE DEVICE Routine 05/06/2021 11:47 AM STAFF FORESTER POCT GLUCOSE DEVICE Routine 05/06/2021 7 :41 AM STAFF FORESTER XR CHEST 1 VIEW IP Routine 05/06/2021 5:55 AM STAFF FORESTER EGFR Routine 05/06/2021 3:32 AM STAFF FORESTER CBC WITHOUT DIFFERENTIAL Routine 05/06/2021 3:32 AM STAFF FORESTER PHOSPHORUS Routine 05/06/2021 3:32 AM STAFF FORESTER MAGNESIUM Routine 05/06/2021 3:32 AM STAFF FORESTER BASIC METABOLIC PANEL Routine 05/06/2021 3:32 AM STAFF FORESTER POCT GLUCOSE DEVICE Routine 05/05/2021 11:52 PM STAFF FORESTER CRITICAL CARE Routine 05/05/2021 11:[address] elevation myocardial infarction (STEMI), unspecified artery (HCC) Gross hematuria Chronic obstructive pulmonary disease, unspecified COPD type ([facility]) POCT GLUCOSE DEVICE Routine 05/05/2021 8 :43 PM STAFF FORESTER POCT GLUCOSE DEVICE Routine 05/05/2021 4 :12 PM STAFF FORESTER EGFR STAT 05/05/2021 4:05 PM STAFF FORESTER MAGNESIUM STAT 05/05/2021 4:05 PM STAFF FORESTER BLOOD GAS, ARTERIAL STAT 05/05/2021 4 :05 PM STAFF FORESTER BASIC METABOLIC PANEL STAT 05/05/2021 4:05 PM STAFF FORESTER CRITICAL CARE Routine 05/05/2021 12:25 PM STAFF FORESTER Gross hematuria Primary hypertension PVD (peripheral vascular disease) ([facility]/HCC) (HCC) Type 2 diabetes mellitus with other specified complication, without long-term current use of insulin ([facility]) ST elevation myocardial infarction involving left anterior descending (LAD) coronary artery (HCC) Chronic obstructive pulmonary disease, unspecified COPD type ([facility]) POCT GLUCOSE DEVICE Routine 05/05/2021 12:07 PM STAFF FORESTER EGFR STAT 05/05/2021 12:04 PM STAFF FORESTER CALCIUM, IONIZED STAT 05/05/2021 12:04 PM STAFF FORESTER CBC WITHOUT DIFFERENTIAL STAT 05/05/2021 12:04 PM STAFF FORESTER MAGNESIUM STAT 05/05/2021 12:04 PM STAFF FORESTER BLOOD GAS, ARTERIAL STAT 05/05/2021 12:04 PM STAFF FORESTER BASIC METABOLIC PANEL STAT 05/05/2021 12:04 PM STAFF FORESTER POCT GLUCOSE DEVICE Routine 05/05/2021 11:14 AM STAFF FORESTER POCT GLUCOSE DEVICE Routine 05/05/2021 10:19 AM STAFF FORESTER BLOOD GAS, ARTERIAL Routine 05/05/2021 10:15 AM STAFF FORESTER AEROBIC CULTURE AND GRAM STAIN Routine 05/05/2021 9:53 AM STAFF FORESTER POCT GLUCOSE DEVICE Routine 05/05/2021 9 :09 AM STAFF FORESTER POCT GLUCOSE DEVICE Routine 05/05/2021 7 :56 AM STAFF FORESTER BLOOD GAS, ARTERIAL STAT 05/05/2021 6 :50 AM STAFF FORESTER POCT GLUCOSE DEVICE Routine 05/05/2021 6 :45 AM STAFF FORESTER XR CHEST 1 VIEW IP Routine 05/05/2021 5:32 AM STAFF FORESTER POCT GLUCOSE DEVICE Routine 05/05/2021 5 :07 AM STAFF FORESTER BLOOD GAS, ARTERIAL STAT 05/05/2021 4 :41 AM STAFF FORESTER EGFR Routine 05/05/2021 4:19 AM STAFF FORESTER DIFFERENTIAL AUTO Routine 05/05/2021 4:1 9 AM STAFF FORESTER CBC WITH AUTO DIFFERENTIAL Routine 05/05/2021 4:19 AM STAFF FORESTER MANUAL DIFFERENTIAL Routine 05/05/2021 4 :19 AM STAFF FORESTER PHOSPHORUS Routine 05/05/2021 4:19 AM STAFF FORESTER MAGNESIUM Routine 05/05/2021 4:19 AM STAFF FORESTER BASIC METABOLIC PANEL Routine 05/05/2021 4:19 AM STAFF FORESTER OXYHEMOGLOBIN, PULMONARY ARTERY Routine 05/05/2021 4:08 AM STAFF FORESTER POCT GLUCOSE DEVICE Routine 05/05/2021 3 :59 AM STAFF FORESTER TRANSFUSE RED BLOOD CELLS Timed 05/05/2021 3:00 AM STAFF FORESTER POCT GLUCOSE DEVICE Routine 05/05/2021 2 :55 AM STAFF FORESTER OXYHEMOGLOBIN, PULMONARY ARTERY STAT 05/05/2021 2:32 AM STAFF FORESTER LACTATE STAT 05/05/2021 2:25 AM STAFF FORESTER EGFR STAT 05/05/2021 2:25 AM STAFF FORESTER CALCIUM, IONIZED STAT 05/05/2021 2:25 AM STAFF FORESTER MAGNESIUM STAT 05/05/2021 2:25 AM STAFF FORESTER BLOOD GAS, ARTERIAL STAT 05/05/2021 2 :25 AM STAFF FORESTER BASIC METABOLIC PANEL STAT 05/05/2021 2:25 AM STAFF FORESTER TRANSFUSE RED BLOOD CELLS Timed 05/05/2021 1:30 AM STAFF FORESTER POCT GLUCOSE DEVICE Routine 05/05/2021 1 :07 AM STAFF FORESTER EGFR Timed 05/05/2021 12:21 AM STAFF FORESTER APTT Routine 05/05/2021 12:21 AM STAFF FORESTER PROTIME-INR Routine 05/05/2021 12:21 AM STAFF FORESTER CBC WITHOUT DIFFERENTIAL Timed 05/05/2021 12:21 AM STAFF FORESTER BASIC METABOLIC PANEL Timed 05/05/2021 12:21 AM STAFF FORESTER POCT GLUCOSE DEVICE Routine 05/04/2021 11:53 PM STAFF FORESTER CALCIUM, IONIZED STAT 05/04/2021 11:49 PM STAFF FORESTER BLOOD GAS, ARTERIAL Timed 05/04/2021 11:49 PM STAFF FORESTER POCT GLUCOSE DEVICE Routine 05/04/2021 10:59 PM STAFF FORESTER TRANSFUSE RED BLOOD CELLS Timed 05/04/2021 10:00 PM STAFF FORESTER PREPARE RBC STAT 05/04/2021 9:56 PM STAFF FORESTER POCT GLUCOSE DEVICE Routine 05/04/2021 9 :39 PM STAFF FORESTER EGFR Timed 05/04/2021 9:35 PM STAFF FORESTER APTT STAT 05/04/2021 9:35 PM STAFF FORESTER PROTIME-INR STAT 05/04/2021 9:35 PM STAFF FORESTER CBC WITHOUT DIFFERENTIAL Timed 05/04/2021 9:35 PM STAFF FORESTER MAGNESIUM STAT 05/04/2021 9:35 PM STAFF FORESTER BASIC METABOLIC PANEL Timed 05/04/2021 9:35 PM STAFF FORESTER CALCIUM, IONIZED STAT 05/04/2021 9:34 PM STAFF FORESTER BLOOD GAS, ARTERIAL Timed 05/04/2021 9 :34 PM STAFF FORESTER XR CHEST 1 VIEW Critical/Life-T hreatening 05/04/2021 8:53 PM STAFF FORESTER POCT GLUCOSE DEVICE Routine 05/04/2021 8 :22 PM STAFF FORESTER CRITICAL CARE Routine 05/04/2021 8:[address] elevation myocardial infarction (STEMI), unspecified artery (HCC) Gross hematuria Type 2 diabetes mellitus with other specified complication, without long-term current use of insulin (HCC) TRANSFUSE CRYOPRECIPITATE (POOLED UNITS) Timed 05/04/2021 8:06 PM STAFF FORESTER TRANSFUSE PLASMA Timed 05/04/2021 7:49 PM STAFF FORESTER POC BLOOD GAS AND CHEMISTRIES, ARTERIAL Routine 05/04/2021 7:28 PM STAFF FORESTER TRANSFUSE PLATELETS Timed 05/04/2021 7 :28 PM STAFF FORESTER PREPARE CRYOPRECIPITATE (POOLED UNITS) STAT 05/04/2021 6:54 PM STAFF FORESTER POC BLOOD GAS AND CHEMISTRIES, ARTERIAL Routine 05/04/2021 6:53 PM STAFF FORESTER TRANSFUSE PLATELETS Timed 05/04/2021 6 :48 PM STAFF FORESTER TRANSFUSE PLASMA Timed 05/04/2021 6:40 PM STAFF FORESTER POC BLOOD GAS AND CHEMISTRIES, ARTERIAL Routine 05/04/2021 6:12 PM STAFF FORESTER PLATELET COUNT STAT 05/04/2021 5:53 PM STAFF FORESTER POC BLOOD GAS AND CHEMISTRIES, ARTERIAL Routine 05/04/2021 5:43 PM STAFF FORESTER PREPARE RBC STAT 05/04/2021 5:43 PM STAFF FORESTER TRANSFUSE RED BLOOD CELLS Timed 05/04/2021 5:22 PM STAFF FORESTER POC BLOOD GAS AND CHEMISTRIES, ARTERIAL Routine 05/04/2021 5:05 PM STAFF FORESTER TRANSFUSE RED BLOOD CELLS Timed 05/04/2021 4:27 PM STAFF FORESTER POC BLOOD GAS AND CHEMISTRIES, ARTERIAL Routine 05/04/2021 4:14 PM STAFF FORESTER POC BLOOD GAS AND CHEMISTRIES, ARTERIAL Routine 05/04/2021 3:30 PM STAFF FORESTER PREPARE PLASMA STAT 05/04/2021 3:25 PM STAFF FORESTER POC BLOOD GAS AND CHEMISTRIES, ARTERIAL Routine 05/04/2021 2:21 PM STAFF FORESTER POCT GLUCOSE DEVICE Routine 05/04/2021 11:54 AM STAFF FORESTER CRITICAL CARE Routine 05/04/2021 10:31 AM STAFF FORESTER Gross hematuria PVD (peripheral vascular disease) (CMS/HCC) (HCC) Type 2 diabetes mellitus with other specified complication, without long-term current use of insulin ([facility]) ST elevation myocardial infarction involving left anterior descending (LAD) coronary artery (HCC) Chronic obstructive pulmonary disease, unspecified COPD type ([facility]) URINALYSIS AND REFLEX TO MICROSCOPIC Routine 05/04/2021 10:13 AM STAFF FORESTER URINALYSIS, MICROSCOPIC ONLY Routine 05/04/2021 10:13 AM STAFF FORESTER POCT GLUCOSE DEVICE Routine 05/04/2021 9 :45 AM STAFF FORESTER XR CHEST 1 VIEW Critical/Life-T hreatening 05/04/2021 9:16 AM STAFF FORESTER POCT GLUCOSE DEVICE Routine 05/04/2021 8 :03 AM STAFF FORESTER CBC WITHOUT DIFFERENTIAL Routine 05/04/2021 2:52 AM STAFF FORESTER EGFR Routine 05/04/2021 2:47 AM STAFF FORESTER APTT STAT 05/04/2021 2:47 AM STAFF FORESTER PROTIME-INR STAT 05/04/2021 2:47 AM STAFF FORESTER PHOSPHORUS Routine 05/04/2021 2:47 AM STAFF FORESTER MAGNESIUM Routine 05/04/2021 2:47 AM STAFF FORESTER COMPREHENSIVE METABOLIC PANEL Routine 05/04/2021 2:47 AM STAFF FORESTER POCT GLUCOSE DEVICE Routine 05/04/2021 2 :38 AM STAFF FORESTER POCT GLUCOSE DEVICE Routine 05/03/2021 7 :59 PM STAFF FORESTER CRITICAL CARE Routine 05/03/2021 7:[address] elevation myocardial infarction (STEMI), unspecified artery (HCC) Gross hematuria POCT GLUCOSE DEVICE Routine 05/03/2021 4 :46 PM STAFF FORESTER POCT GLUCOSE DEVICE Routine 05/03/2021 11:20 AM STAFF FORESTER PREPARE PLATELETS STAT 05/03/2021 9:2 6 AM STAFF FORESTER PREPARE RBC STAT 05/03/2021 9:26 AM STAFF FORESTER CRITICAL CARE Routine 05/03/2021 9:14 AM STAFF FORESTER Gross hematuria Hemoptysis Primary hypertension PVD (peripheral vascular disease) (CMS/HCC) (HCC) Type 2 diabetes mellitus with other specified complication, without long-term current use of insulin (HCC) ST elevation myocardial infarction involving left anterior descending (LAD) coronary artery (HCC) POCT GLUCOSE DEVICE Routine 05/03/2021 7 :36 AM STAFF FORESTER EGFR Routine 05/03/2021 4:19 AM STAFF FORESTER APTT Routine 05/03/2021 4:19 AM STAFF FORESTER CBC WITHOUT DIFFERENTIAL Routine 05/03/2021 4:19 AM STAFF FORESTER PHOSPHORUS Routine 05/03/2021 4:19 AM STAFF FORESTER MAGNESIUM Routine 05/03/2021 4:19 AM STAFF FORESTER HEMOGLOBIN A1C Routine 05/03/2021 4:19 AM STAFF FORESTER COMPREHENSIVE METABOLIC PANEL Routine 05/03/2021 4:19 AM STAFF FORESTER CRITICAL CARE Routine 05/02/2021 8:[address] elevation myocardial infarction (STEMI), unspecified artery (HCC) Gross hematuria EGFR STAT 05/02/2021 7:35 PM STAFF FORESTER CBC WITHOUT DIFFERENTIAL STAT 05/02/2021 7:35 PM STAFF FORESTER MAGNESIUM STAT 05/02/2021 7:35 PM STAFF FORESTER BASIC METABOLIC PANEL STAT 05/02/2021 7:35 PM STAFF FORESTER POCT GLUCOSE DEVICE Routine 05/02/2021 5 :23 PM STAFF FORESTER TRANSFUSE RED BLOOD CELLS Timed 05/02/2021 4:25 PM STAFF FORESTER PREPARE RBC STAT 05/02/2021 3:27 PM STAFF FORESTER CBC WITHOUT DIFFERENTIAL Routine 05/02/2021 3:12 PM STAFF FORESTER CRITICAL CARE Routine 05/02/2021 2:[address] elevation myocardial infarction (STEMI), unspecified artery (HCC) Gross hematuria Hemoptysis Primary hypertension PVD (peripheral vascular disease) (CMS/HCC) (HCC) Type 2 diabetes mellitus with other specified complication, without long-term current use of insulin (HCC) POCT GLUCOSE DEVICE Routine 05/02/2021 11:03 AM STAFF FORESTER COVID-19 CORONAVIRUS RNA Routine 05/02/2021 11:00 AM STAFF FORESTER APTT Routine 05/02/2021 11:00 AM STAFF FORESTER TRANSTHORACIC ECHO (TTE) COMPLETE W DOPPLER/CF WO CONTRAST Routine 05/02/2021 9:15 AM STAFF FORESTER POCT GLUCOSE DEVICE Routine 05/02/2021 8 :31 AM STAFF FORESTER XR CHEST 1 VIEW IP Routine 05/02/2021 5:40 AM STAFF FORESTER POCT GLUCOSE DEVICE Routine 05/02/2021 4 :50 AM STAFF FORESTER TROPONIN T HIGH-SENSITIVITY 6-HOUR Timed 05/02/2021 4:43 AM STAFF FORESTER EGFR Routine 05/02/2021 4:43 AM STAFF FORESTER CBC WITHOUT DIFFERENTIAL Routine 05/02/2021 4:43 AM STAFF FORESTER BASIC METABOLIC PANEL Routine 05/02/2021 4:43 AM STAFF FORESTER TROPONIN T HIGH-SENSITIVITY 4-HR Timed 05/02/2021 2:34 AM STAFF FORESTER TROPONIN T HIGH-SENSITIVITY 2-HOUR Timed 05/02/2021 12:32 AM STAFF FORESTER APTT STAT 05/02/2021 12:32 AM STAFF FORESTER TYPE AND SCREEN Timed 05/02/2021 12:32 AM STAFF FORESTER LIPID PANEL Routine 05/02/2021 12:32 AM STAFF FORESTER TROPONIN T HIGH-SENSITIVITY SERIES (BASELINE, 2HR, 4HR, 6HR) Routine 05/01/2021 10:19 PM STAFF FORESTER EGFR Routine 05/01/2021 10:19 PM STAFF FORESTER DIFFERENTIAL AUTO STAT 05/01/2021 10:19 PM STAFF FORESTER PRO B-TYPE NATRIURETIC PEPTIDE STAT 05/01/2021 10:19 PM STAFF FORESTER CALCIUM, IONIZED STAT 05/01/2021 10:19 PM STAFF FORESTER CBC WITH AUTO DIFFERENTIAL STAT 05/01/2021 10:19 PM STAFF FORESTER APTT STAT 05/01/2021 10:19 PM STAFF FORESTER PROTIME-INR STAT 05/01/2021 10:19 PM STAFF FORESTER PHOSPHORUS Routine 05/01/2021 10:19 PM STAFF FORESTER MAGNESIUM Routine 05/01/2021 10:19 PM STAFF FORESTER BLOOD GAS, ARTERIAL STAT 05/01/2021 10:19 PM STAFF FORESTER COMPREHENSIVE METABOLIC PANEL Routine 05/01/2021 10:19 PM STAFF FORESTER POCT GLUCOSE DEVICE Routine 05/01/2021 9 :42 PM STAFF FORESTER XR CHEST 1 VIEW ED Urgent/IP Urgent 05/01/2021 8:28 PM STAFF FORESTER CRITICAL CARE Routine 05/01/2021 8:[address] elevation myocardial infarction (STEMI), unspecified artery (HCC) POCT GLUCOSE DEVICE Routine 05/01/2021 7 :10 PM STAFF FORESTER PERC INSRT INTRAORT BALL [id number] Routine 05/01/2021 6:[address] elevation myocardial infarction (STEMI), unspecified artery (HCC) PCI PTCA [place] [id number] Routine 05/01/2021 6:[address] elevation myocardial infarction (STEMI), unspecified artery (HCC) PERCUTAINEOUS TRANSLUMINAL CORONARY ANGIOPLASTY OF ONE MAJOR CORONARY Routine 05/01/2021 6:[address] elevation myocardial infarction (STEMI), unspecified artery (HCC) B CHECK SAMPLE STAT 04/30/2021 10:19 PM STAFF FORESTER documented in this encounter Results * (ABNORMAL) POCT glucose (06/03/2021 12:21 PM STAFF FORESTER) [facility] Signature Glucose, POC 200(H) 70 - 199 mg/dL [facility] Blood 06/03/2021 12:2 1 PM STAFF FORESTER 06/03/2021 12:21 PM STAFF FORESTER us Robbie Celeste MD LAB POCT ORDERABLES - DEVICE Fi nal Result [facility] [address] [facility] [place] [address] * (ABNORMAL) POCT glucose (06/03/2021 6:33 AM STAFF FORESTER) Glucose, POC 211(H) 70 - 199 mg/dL [facility] Blood 06/03/2021 6:33 AM STAFF FORESTER 06/03/2021 6:33 AM STAFF FORESTER us Robbie Celeste MD LAB POCT ORDERABLES - DEVICE Fi nal Result [facility] [address] [place] [address] * eGFR (06/03/2021 3:04 AM STAFF FORESTER) eGFR 124 mL/min/1. 73 m2 [facility] Comment: Interpretive Data Reference Interval Normal ?>/= [...] interpretive data was last reviewed 2021. Blood 06/03/2021 3:04 AM STAFF FORESTER 06/03/2021 3:56 AM STAFF FORESTER Silviano Huddleston ESCROW CLERK LAB BLOOD ORDERABLES Final Result [facility] [address] [place] [address] * (ABNORMAL) Basic metabolic panel (06/03/2021 3:04 AM STAFF FORESTER) Sodium 135 135 - 145 mmol/L [facility] Potassium, pl 3.7 3.3 - 4.9 mmol/L [facility] Chloride 105 97 - 110 mmol/L [facility] CO2 18(L) 22 - 32 mmol/L [facility] Anion gap 12 2 - 15 mmol/L [facility] BUN 11 8 - 25 mg/dL [facility] Creatinine 0.42(L) 0.80 - 1.30 mg/dL [facility] Glucose 140 70 - 199 mg/dL [facility] Comment: Interpretive Data Fasting glucose >/= 126 [...] interpretive data was last revised 2017. Calcium 8.5 8.5 - 10.3 mg/dL [facility] Blood 06/03/2021 3:04 AM STAFF FORESTER 06/03/2021 3:56 AM STAFF FORESTER Silviano Huddleston ESCROW CLERK LAB BLOOD ORDERABLES Final Result [facility] [address] [place] [address] * (ABNORMAL) CBC without differential (06/03/2021 3:04 AM STAFF FORESTER) WBC 13.2(H) 3.8 - 9.9 K/cumm [facility] Hgb 9.2(L) 13.0 - 17.5 g/dL [facility] Hct 29.2(L) 38.9 - 50.3 % [facility] Plt 419(H) 150 - 400 K/cumm [facility] MPV 11.5 9.1 - 12.3 fL [facility] RBC 3.10(L) 4.30 - 5.80 M/cumm [facility] MCV 94.2 81.3 - 96.4 fL [facility] MCH 29.7 27.1 - 33.3 pg [facility] MCHC 31.5(L) 32.3 - 35.7 g/dL [facility] RDW CV 15.0(H) 11.1 - 14.9 % [facility] RDW SD 49.8(H) 35.7 - 48.1 fL [facility] NRBC abs 0.00 0.00 - 0.01 K/cumm [facility] Blood 06/03/2021 3:04 AM STAFF FORESTER 06/03/2021 3:55 AM STAFF FORESTER Silviano Huddleston ESCROW CLERK LAB BLOOD ORDERABLES Final Result Performing Organization Address [facility] Co de Phone Number [facility] [address] [facility] [place] [address] * Magnesium (06/03/2021 3:04 AM STAFF FORESTER) Pathologist [facility] Magnesium 1.8 1.4 - 2.5 mg/dL [facility] Blood 06/03/2021 3:04 AM STAFF FORESTER 06/03/2021 3:56 AM STAFF FORESTER Silviano Saldivar [facility] ESCROW CLERK LAB BLOOD ORDERABLES Final Result Performing Organization Address City/[facility] Co de Phone Number [facility] [address] [facility] [place] [address] * Phosphorus (06/03/2021 3:04 AM STAFF FORESTER) Phosphorus, pl 3.0 2.3 - 4.5 mg/dL [facility] Blood 06/03/2021 3:04 AM STAFF FORESTER 06/03/2021 3:56 AM STAFF FORESTER us Silviano Huddleston ESCROW CLERK LAB BLOOD ORDERABLES Final Result Performing Organization Address [facility] Co de Phone Number [facility] [address] [facility] [place] [address] * POCT glucose (06/02/2021 8:34 PM STAFF FORESTER) Glucose, POC 193 70 - 199 mg/dL [facility] Blood 06/02/2021 8:34 PM STAFF FORESTER 06/02/2021 8:34 PM STAFF FORESTER us Robbie Celeste MD LAB POCT ORDERABLES - DEVICE Fi nal Result Performing Organization Address [facility] de Phone Number [facility] [address] [facility] [place] [address] * (ABNORMAL) POCT glucose (06/02/2021 4:21 PM STAFF FORESTER) Glucose, POC 259(H) 70 - 199 mg/dL [facility] Blood 06/02/2021 4:21 PM STAFF FORESTER 06/02/2021 4:21 PM STAFF FORESTER us Robbie Celeste MD LAB POCT ORDERABLES - DEVICE Fi nal Result Performing Organization Address [facility] Co de Phone Number [facility] [address] [place] [address] * (ABNORMAL) POCT glucose (06/02/2021 11:37 AM STAFF FORESTER) Glucose, POC 251(H) 70 - 199 mg/dL [facility] Blood 06/02/2021 11:3 7 AM STAFF FORESTER 06/02/2021 11:37 AM STAFF FORESTER us Robbie Celeste MD LAB POCT ORDERABLES - DEVICE Fi nal Result Performing Organization Address [facility] Co de Phone Number [facility] [address] [place] [address] * POCT glucose (06/02/2021 6:46 AM STAFF FORESTER) Glucose, POC 137 70 - 199 mg/dL [facility] Blood 06/02/2021 6:46 AM STAFF FORESTER 06/02/2021 6:46 AM STAFF FORESTER Rhina Granados MD LAB POCT ORDERABLES - DEVICE Final Result [facility] [address] [place] [address] * eGFR (06/02/2021 5:37 AM STAFF FORESTER) eGFR 116 mL/min/1. 73 m2 [facility] Comment: Interpretive Data Reference Interval Normal ?>/= [...] interpretive data was last reviewed 2021. Blood 06/02/2021 5:37 AM STAFF FORESTER 06/02/2021 5:49 AM STAFF FORESTER Silviano Huddleston ESCROW CLERK LAB BLOOD ORDERABLES Final Result [facility] [address] [place] [address] * (ABNORMAL) Basic metabolic panel (06/02/2021 5:37 AM STAFF FORESTER) Sodium 135 135 - 145 mmol/L [facility] Potassium, pl 4.2 3.3 - 4.9 mmol/L [facility] Chloride 104 97 - 110 mmol/L [facility] CO2 21(L) 22 - 32 mmol/L [facility] Anion gap 10 2 - 15 mmol/L [facility] BUN 13 8 - 25 mg/dL [facility] Creatinine 0.52(L) 0.80 - 1.30 mg/dL [facility] Glucose 139 70 - 199 mg/dL [facility] Comment: Interpretive Data Fasting glucose >/= 126 [...] interpretive data was last revised 2017. Calcium 8.7 8.5 - 10.3 mg/dL [facility] Blood 06/02/2021 5:37 AM STAFF FORESTER 06/02/2021 5:49 AM STAFF FORESTER Silviano Huddleston ESCROW CLERK LAB BLOOD ORDERABLES Final Result [facility] [address] [place] [address] * (ABNORMAL) CBC without differential (06/02/2021 5:37 AM STAFF FORESTER) WBC 15.4(H) 3.8 - 9.9 K/cumm [facility] Hgb 9.8(L) 13.0 - 17.5 g/dL [facility] Hct 30.5(L) 38.9 - 50.3 % [facility] Plt 434(H) 150 - 400 K/cumm [facility] MPV 11.0 9.1 - 12.3 fL [facility] RBC 3.25(L) 4.30 - 5.80 M/cumm [facility] MCV 93.8 81.3 - 96.4 fL [facility] MCH 30.2 27.1 - 33.3 pg [facility] MCHC 32.1(L) 32.3 - 35.7 g/dL [facility] RDW CV 14.6 11.1 - 14.9 % [facility] RDW SD 49.0(H) 35.7 - 48.1 fL [facility] NRBC abs 0.00 0.00 - 0.01 K/cumm [facility] Blood 06/02/2021 5:37 AM STAFF FORESTER 06/02/2021 5:50 AM STAFF FORESTER Silviano Huddleston ESCROW CLERK LAB BLOOD ORDERABLES Final Result Performing Organization Address City/[facility] Co de Phone Number [facility] [address] [facility] [address] [place], [place] [id number] * Magnesium (06/02/2021 5:37 AM STAFF FORESTER) Magnesium 1.6 1.4 - 2.5 mg/dL [facility] Blood 06/02/2021 5:37 AM STAFF FORESTER 06/02/2021 5:49 AM STAFF FORESTER Silviano Huddleston ESCROW CLERK LAB BLOOD ORDERABLES Final Result Performing Organization Address [facility] Co de Phone Number [facility] [address] [facility] [place] [address] * Phosphorus (06/02/2021 5:37 AM STAFF FORESTER) Phosphorus, pl 2.7 2.3 - 4.5 mg/dL [facility] Blood 06/02/2021 5:37 AM STAFF FORESTER 06/02/2021 5:49 AM STAFF FORESTER us Silviano Huddleston ESCROW CLERK LAB BLOOD ORDERABLES Final Result Performing Organization Address [facility] Co de Phone Number [facility] [address] [facility] [place] [address] * Vancomycin level trough (06/02/2021 5:37 AM STAFF FORESTER) Vancomycin trough 18.8 10.0 - 20.0 mcg/mL [facility] Blood 06/02/2021 5:37 AM STAFF FORESTER 06/02/2021 5:49 AM STAFF FORESTER us Angelo Vance MD LAB BLOOD ORDERABLES Fin al Result Performing Organization Address [facility] de Phone Number [facility] [address] [facility] [place] [address] * POCT glucose (06/02/2021 2:07 AM STAFF FORESTER) Glucose, POC 120 70 - 199 mg/dL [facility] Blood 06/02/2021 2:07 AM STAFF FORESTER 06/02/2021 2:07 AM STAFF FORESTER Rhina Granados MD LAB POCT ORDERABLES - DEVICE Final Result Performing Organization Address [facility] Co de Phone Number [facility] [address] [place] [address] * POCT glucose (06/01/2021 9:18 PM STAFF FORESTER) Glucose, POC 166 70 - 199 mg/dL [facility] Blood 06/01/2021 9:18 PM STAFF FORESTER 06/01/2021 9:18 PM STAFF FORESTER Rhina Granados MD LAB POCT ORDERABLES - DEVICE Final Result Performing Organization Address [facility] Co de Phone Number [facility] [address] [place] [address] * (ABNORMAL) POCT glucose (06/01/2021 5:38 PM STAFF FORESTER) Glucose, POC 219(H) 70 - 199 mg/dL [facility] Blood 06/01/2021 5:38 PM STAFF FORESTER 06/01/2021 5:38 PM STAFF FORESTER Rhina Granados MD LAB POCT ORDERABLES - DEVICE Final Result Performing Organization Address [facility] Co de Phone Number [facility] [address] [place] [address] * POCT glucose (06/01/2021 11:45 AM STAFF FORESTER) Glucose, POC 155 70 - 199 mg/dL [facility] Blood 06/01/2021 11:4 5 AM STAFF FORESTER 06/01/2021 11:45 AM STAFF FORESTER Rhina Granados MD LAB POCT ORDERABLES - DEVICE Final Result Performing Organization Address [facility] de Phone Number [facility] [address] [place] [address] * eGFR (06/01/2021 11:32 AM STAFF FORESTER) eGFR 120 mL/min/1. 73 m2 [facility] Comment: Interpretive Data Reference Interval Normal ?>/= [...] interpretive data was last reviewed 2021. Blood 06/01/2021 11:3 2 AM STAFF FORESTER 06/01/2021 12:30 PM STAFF FORESTER us Silviano Huddleston NP LAB BLOOD ORDERABLES Final Result [facility] [address] [place] [address] * (ABNORMAL) Basic metabolic panel (06/01/2021 11:32 AM STAFF FORESTER) Sodium 135 135 - 145 mmol/L [facility] Potassium, pl 3.8 3.3 - 4.9 mmol/L [facility] Chloride 101 97 - 110 mmol/L [facility] CO2 20(L) 22 - 32 mmol/L [facility] Anion gap 14 2 - 15 mmol/L [facility] BUN 13 8 - 25 mg/dL [facility] Creatinine 0.47(L) 0.80 - 1.30 mg/dL [facility] Glucose 144 70 - 199 mg/dL [facility] Comment: Interpretive Data Fasting glucose >/= 126 [...] interpretive data was last revised 2017. Calcium 8.7 8.5 - 10.3 mg/dL [facility] Blood 06/01/2021 11:3 2 AM STAFF FORESTER 06/01/2021 12:30 PM STAFF FORESTER Silviano Huddleston ESCROW CLERK LAB BLOOD ORDERABLES Final Result Performing Organization Address [facility] Co de Phone Number [facility] [address] [place] [address] * (ABNORMAL) CBC without differential (06/01/2021 11:32 AM STAFF FORESTER) WBC 16.3(H) 3.8 - 9.9 K/cumm [facility] Hgb 10.3(L) 13.0 - 17.5 g/dL [facility] Hct 33.0(L) 38.9 - 50.3 % [facility] Plt 508(H) 150 - 400 K/cumm [facility] MPV 11.4 9.1 - 12.3 fL [facility] RBC 3.50(L) 4.30 - 5.80 M/cumm [facility] MCV 94.3 81.3 - 96.4 fL [facility] MCH 29.4 27.1 - 33.3 pg [facility] MCHC 31.2(L) 32.3 - 35.7 g/dL [facility] RDW CV 14.5 11.1 - 14.9 % [facility] RDW SD 48.3(H) 35.7 - 48.1 fL [facility] NRBC abs 0.00 0.00 - 0.01 K/cumm [facility] Blood 06/01/2021 11:3 2 AM STAFF FORESTER 06/01/2021 12:29 PM STAFF FORESTER Silviano Huddleston ESCROW CLERK LAB BLOOD ORDERABLES Final Result Performing Organization Address [facility]/ZIP Co de Phone Number [facility] [address] [place], [place] [id number] * Magnesium (06/01/2021 11:32 AM STAFF FORESTER) Magnesium 1.7 1.4 - 2.5 mg/dL [facility] Blood 06/01/2021 11:3 2 AM STAFF FORESTER 06/01/2021 12:30 PM STAFF FORESTER Silviano Huddleston ESCROW CLERK LAB BLOOD ORDERABLES Final Result Performing Organization Address City/[facility] Co de Phone Number [facility] [address] [place] [address] * Phosphorus (06/01/2021 11:32 AM STAFF FORESTER) Phosphorus, pl 2.6 2.3 - 4.5 mg/dL [facility] Blood 06/01/2021 11:3 2 AM STAFF FORESTER 06/01/2021 12:30 PM STAFF FORESTER Silviano Huddleston ESCROW CLERK LAB BLOOD ORDERABLES Final Result Performing Organization Address [facility] de Phone Number [facility] [address] [place] [address] * US Vein Duplex Lower Extremity Bilateral Complete (06/01/2021 9:20 AM STAFF FORESTER) Anatomical Region Laterality Modality Vascular Bilateral Ultrasound 06/01/2021 9:55 AM STAFF FORESTER Impressions 06/01/2021 9:55 AM STAFF FORESTER No evidence of deep vein thrombosis in bilateral lower extremities. Electronically signed by: Humphrey Mojica M.D. Narrative 06/01/2021 9:55 AM STAFF FORESTER EXAMINATION: BILATERAL LOWER EXTREMITY VENOUS DUPLEX EXAM [...] by: Humphrey Mojica M.D. us Silviano Huddleston ESCROW CLERK IMG US PROCEDURES Final Re sult * POCT glucose (06/01/2021 6:30 AM STAFF FORESTER) Glucose, POC 116 70 - 199 mg/dL [facility] Blood 06/01/2021 6:30 AM STAFF FORESTER 06/01/2021 6:30 AM STAFF FORESTER us Rhina Granados MD LAB POCT ORDERABLES - DEVICE Final Result Performing Organization Address [facility] de Phone Number [facility] [address] [place] [address] * POCT glucose (06/01/2021 2:52 AM STAFF FORESTER) Glucose, POC 114 70 - 199 mg/dL [facility] Blood 06/01/2021 2:52 AM STAFF FORESTER 06/01/2021 2:52 AM STAFF FORESTER Rhina Granados MD LAB POCT ORDERABLES - DEVICE Final Result Performing Organization Address [facility] de Phone Number [facility] [address] [place] [address] * POCT glucose (05/31/2021 9:47 PM STAFF FORESTER) Glucose, POC 171 70 - 199 mg/dL [facility] Blood 05/31/2021 9:47 PM STAFF FORESTER 05/31/2021 9:47 PM STAFF FORESTER Rhina Granados MD LAB POCT ORDERABLES - DEVICE Final Result Performing Organization Address [facility]/ZIP Co de Phone Number [facility] [address] [facility] [place] [address] * POCT glucose (05/31/2021 6:05 PM STAFF FORESTER) Glucose, POC 138 70 - 199 mg/dL [facility] Blood 05/31/2021 6:05 PM STAFF FORESTER 05/31/2021 6:05 PM STAFF FORESTER Rhina Granados MD LAB POCT ORDERABLES - DEVICE Final Result Performing Organization Address [facility] de Phone Number [facility] [address] [facility] [place] [address] * POCT glucose (05/31/2021 12:59 PM STAFF FORESTER) Glucose, POC 157 70 - 199 mg/dL [facility] Blood 05/31/2021 12:5 9 PM STAFF FORESTER 05/31/2021 12:59 PM STAFF FORESTER Rhina Granados MD LAB POCT ORDERABLES - DEVICE Final Result Performing Organization Address [facility] Co de Phone Number [facility] [address] [place] [address] * POCT glucose (05/31/2021 8:04 AM STAFF FORESTER) Glucose, POC 126 70 - 199 mg/dL [facility] Blood 05/31/2021 8:04 AM STAFF FORESTER 05/31/2021 8:04 AM STAFF FORESTER Rhina Granados MD LAB POCT ORDERABLES - DEVICE Final Result Performing Organization Address [facility] Co de Phone Number [facility] [address] [address] [facility] [place] [address] * XR Chest 1 Vw Portable (05/31/2021 6:39 AM STAFF FORESTER) Anatomical Region Laterality Modality Body, Chest N/A Computed Radiogr aphy 05/31/2021 7:02 AM STAFF FORESTER Impressions 05/31/2021 7:02 AM STAFF FORESTER 1. ??No significant interval change from prior. 2. ??Multifocal bilateral airspace opacities most suggestive of Covid 19 pneumonia. 2. ??Stable mild cardiomegaly. Electronically signed by: Richard Lopez II, D.O. Narrative 05/31/2021 7:02 AM STAFF FORESTER EXAMINATION: XR CHEST 1 VIEW DATE: 05/31/2021 [...] by: Richard Lopez II, D.O. Erika Mayer ESCROW CLERK IMG XR PROCEDURES Luz townsend Result * eGFR (05/31/2021 5:39 AM STAFF FORESTER) [facility] eGFR 123 mL/min/1.7 3 m2 [facility] Comment: Interpretive Data Reference Interval Normal ?>/= 90 mL/min/1.73m2 Mildly decreased* ? 60 - 89 mL/min/1.73m2 Mildly to moderately decreased ?45 - 59 mL/min/1.73m2 Moderately to severely decreased ??30 - 44 mL/min/1.73m2 Severely decreased ?15 - 29 mL/min/1.73m2 Kidney Failure ?< 15 ??mL/min/1.73m2 *Relative to young adult level Estimated glomerular filtration rate is determined by the CKD-EPI equation recommended by the National Kidney Foundation (KDIGO 2012 Clinical Practice Guideline for the Evaluation and Management of Chronic Kidney Disease. Kidney Intnl Suppl Jun 2012;3:1). The CKD-EPI equation should not be used for patients with unstable renal function and has not been validated in children and those over 70. Current interpretive data was last reviewed 2020 Blood 05/31/2021 5:39 AM STAFF FORESTER 05/31/2021 6:15 AM STAFF FORESTER us Silviano Huddleston ESCROW CLERK LAB BLOOD ORDERABLES Final Result Performing Organization Address City/State/[facility] Co de Phone Number [facility] [address] [place] [address] * (ABNORMAL) Basic metabolic panel (05/31/2021 5:39 AM STAFF FORESTER) Sodium 132(L) 135 - 145 mmol/L [facility] Potassium, pl 4.2 3.3 - 4.9 mmol/L [facility] Chloride 102 97 - 110 mmol/L [facility] CO2 18(L) 22 - 32 mmol/L [facility] Anion gap 12 2 - 15 mmol/L [facility] BUN 16 8 - 25 mg/dL [facility] Creatinine 0.46(L) 0.80 - 1.30 mg/dL [facility] Glucose 118 70 - 199 mg/dL [facility] Comment: Interpretive Data Fasting glucose >/= 126 [...] interpretive data was last revised 2017. Calcium 8.7 8.5 - 10.3 mg/dL [facility] Blood 05/31/2021 5:39 AM STAFF FORESTER 05/31/2021 6:15 AM STAFF FORESTER Silviano Huddleston NP LAB BLOOD ORDERABLES Final Result [facility] [id number] [place] [address] * (ABNORMAL) CBC without differential (05/31/2021 5:39 AM STAFF FORESTER) WBC 18.4(H) 3.8 - 9.9 K/cumm [facility] Hgb 10.4(L) 13.0 - 17.5 g/dL [facility] Hct 32.1(L) 38.9 - 50.3 % [facility] Plt 470(H) 150 - 400 K/cumm [facility] MPV 11.3 9.1 - 12.3 fL [facility] RBC 3.46(L) 4.30 - 5.80 M/cumm [facility] MCV 92.8 81.3 - 96.4 fL [facility] CH MCH 30.1 27.1 - 33.3 pg [facility] MCHC 32.4 32.3 - 35.7 g/dL [facility] CH RDW CV 14.1 11.1 - 14.9 % [facility] CH RDW SD 46.8 35.7 - 48.1 fL [facility] CH NRBC abs 0.00 0.00 - 0.01 K/cumm [facility] Blood 05/31/2021 5:39 AM STAFF FORESTER 05/31/2021 6:15 AM STAFF FORESTER Silviano Huddleston ESCROW CLERK LAB BLOOD ORDERABLES Final Result Performing Organization Address [facility] Co de Phone Number [id number] [id number] [address] [facility] [place] [address] * Magnesium (05/31/2021 5:39 AM STAFF FORESTER) Magnesium 2.0 1.4 - 2.5 mg/dL [facility] Blood 05/31/2021 5:39 AM STAFF FORESTER 05/31/2021 6:15 AM STAFF FORESTER Silviano Huddleston ESCROW CLERK LAB BLOOD ORDERABLES Final Result Performing Organization Address [facility] de Phone Number [facility] [address] [place] [address] * Phosphorus (05/31/2021 5:39 AM STAFF FORESTER) Phosphorus, pl 2.7 2.3 - 4.5 mg/dL [facility] Blood 05/31/2021 5:39 AM STAFF FORESTER 05/31/2021 6:15 AM STAFF FORESTER Silviano Huddleston ESCROW CLERK LAB BLOOD ORDERABLES Final Result Performing Organization Address [facility] Phone Number [facility] [address] [place] [address] * Vancomycin level trough Draw trough 30 minutes prior to dose. (05/31/2021 5:39 AM STAFF FORESTER) Vancomycin trough 19.0 10.0 - 20.0 mcg/mL [facility] Blood 05/31/2021 5:39 AM STAFF FORESTER 05/31/2021 10:02 PM STAFF FORESTER Narrative [facility] - 05/31/2021 10:16 PM STAFF FORESTER Draw trough 30 minutes prior to dose. Lc Simons MD LAB BLOOD ORDERABLES Final R esult [facility] [address] [place] [address] * POCT glucose (05/30/2021 8:09 PM STAFF FORESTER) Glucose, POC 193 70 - 199 mg/dL [facility] Blood 05/30/2021 8:09 PM STAFF FORESTER 05/30/2021 8:09 PM STAFF FORESTER us Lc Simons MD LAB POCT ORDERABLES - DEVICE Final Result [facility] [address] [place] [address] * Critical Care (05/30/2021 8:03 PM STAFF FORESTER) Narrative Austin Hoffman MD - 05/30/2021 8:03 PM STAFF FORESTER Marek Mei NP ? 05/31/2021 ??5:42 AM Critical Care Performed by: Marek Mei NP Authorized by: Marek Mei NP CRITICAL CARE: ??Team: ??CHNE ??Shift: ??PM ??Level of Billing: ??Critical Care ??My time spent with this patient was 60 minutes: Critical Provider Statement: I have seen and examined the patient on this day of service. I have reviewed and confirmed the history, physical exam, laboratory and radiologic data as documented in the signed ICU note. I have reviewed and discussed my treatment plan with the ICU team and other medical/environmental remediation consultant staff, making frequent assessments and decisions regarding this patient's complex medical care. Critical Care time was exclusive of time spent performing separately billed procedures, treating other patients, and teaching. This time was in addition to and separate from critical care provided by other practitioners in my group on this day of service. Critical Care was necessary to treat or prevent imminent or life-threatening deterioration of the following conditions: ? Acute pain/acute postoperative pain ?? COVID 19 ?? Acute hypoxic respiratory failure ?? Pneumonia and Leukocytosis ??This time was spent by me doing the following: ? Obtaining peripheral venous access or blood draws, Serial bedside patient exams and Serial laboratory checks ?? Acute pain control and Frequent neurologic exams ?? High flow nasal cannula ?? Active and frequent reassessment of respiratory status and oxygen requirements and Incentive spirometry, pulmonary toilet ?? Active and frequent monitoring of intake/output and volumen status ?? Review of prior or current culture/gram stain results and Empiric broad coverage antibiotics ?? I spent time reviewing and interpreting data from bedside monitors, laboratory results, and imaging, I spent time discussing the management of this critically ill patient with consultants and the medical staff and I spent time documenting in the medical record Marek Mei NP IN CLINIC/BEDSIDE ORDER REJI Final Result * POCT glucose (05/30/2021 5:17 PM STAFF FORESTER) Glucose, POC 162 70 - 199 mg/dL [facility] Blood 05/30/2021 5:17 PM STAFF FORESTER 05/30/2021 5:17 PM STAFF FORESTER Lc Simons MD LAB POCT ORDERABLES - DEVICE Final Result Performing Organization Address [facility]/ZIP Co de Phone Number HENRIK [address] [facility] [place] [address] * POCT glucose (05/30/2021 12:08 PM STAFF FORESTER) Glucose, POC 190 70 - 199 mg/dL [facility] Blood 05/30/2021 12:0 8 PM STAFF FORESTER 05/30/2021 12:08 PM STAFF FORESTER Lc Simons MD LAB POCT ORDERABLES - DEVICE Final Result Performing Organization Address [facility]/ZIP Co de Phone Number [facility] [address] [address] [facility] [place] [address] * POCT glucose (05/30/2021 7:54 AM STAFF FORESTER) Glucose, POC 125 70 - 199 mg/dL [facility] Blood 05/30/2021 7:54 AM STAFF FORESTER 05/30/2021 7:54 AM STAFF FORESTER us Lc Simons MD LAB POCT ORDERABLES - DEVICE Final Result Performing Organization Address City/State/ZIP Co ma Phone Number H[facility]K [address] [facility] [place] [address] * Critical Care (05/30/2021 7:00 AM STAFF FORESTER) Narrative Trinh Yeh MD - 05/30/2021 7:00 AM STAFF FORESTER Erika Mayer NP ? 05/30/2021 ??6:47 PM Critical Care Performed by: Erika Mayer NP Authorized by: Erika Mayer NP CRITICAL CARE: ??Team: ??CHNE ??Shift: ??AM ??Level of Billing: ??Critical Care ??My time spent with this patient was 90 minutes: Critical Provider Statement: I have seen and examined the patient on this day of service. I have reviewed and confirmed the history, physical exam, laboratory and radiologic data as documented in the signed ICU note. I have reviewed and discussed my treatment plan with the ICU team and other medical/environmental remediation consultant staff, making frequent assessments and decisions regarding this patient's complex medical care. Critical Care time was exclusive of time spent performing separately billed procedures, treating other patients, and teaching. This time was in addition to and separate from critical care provided by other practitioners in my group on this day of service. Critical Care was necessary to treat or prevent imminent or life-threatening deterioration of the following conditions: ? Acute pain/acute postoperative pain ?? Hypotension ?? S/p cabg ??05/04 Covid 19 pneumonia ?? Atelectasis and Acute hypoxic respiratory failure ?? Acute electrolyte derangement and Hypo- or Hyperglycemia ?? Severe coagulopathy ?? Leukocytosis, Pneumonia and Sepsis ??This time was spent by me doing the following: ? Arterial puncture, Obtaining peripheral venous access or blood draws, Serial bedside patient exams and Serial laboratory checks ?? Acute pain control and Frequent neurologic exams ?? Serial neurovascular exams ?? Incentive spirometry, pulmonary toilet, Frequent bronchodilator treatments and Active and frequent reassessment of respiratory status and oxygen requirements ?? Serial abdominal exams, Glycemic control and Active and frequent monitoring of intake/output and volumen status ?? Active repletion of electrolytes ?? Initiation/monitoring/titration of anticoagulants ?? Empiric broad coverage antibiotics, Obtaining appropriate cultures and Review of prior or current culture/gram stain results ?? Advanced wound care ?? I spent time reviewing and interpreting data from bedside monitors, laboratory results, and imaging, I spent time discussing the management of this critically ill patient with consultants and the medical staff, I spent time documenting in the medical record, I spent time talking to this patient's relatives to obtain additional medical history due to patient's inabililty to provide history and I spent time talking to this patient's surrogate decision maker to determine treatment plans due to patient's inability to participate in decision making us Erika Mayer NP IN CLINIC/BEDSIDE FAVIO KAUR Final Result * eGFR (05/30/2021 4:05 AM STAFF FORESTER) [facility] eGFR 122 mL/min/1.7 3 m2 [facility] Comment: Interpretive Data Reference Interval Normal ?>/= 90 mL/min/1.73m2 Mildly decreased* ? 60 - 89 mL/min/1.73m2 Mildly to moderately decreased ?45 - 59 mL/min/1.73m2 Moderately to severely decreased ??30 - 44 mL/min/1.73m2 Severely decreased ?15 - 29 mL/min/1.73m2 Kidney Failure ?< 15 ??mL/min/1.73m2 *Relative to young adult level Estimated glomerular filtration rate is determined by the CKD-EPI equation recommended by the National Kidney Foundation (KDIGO 2012 Clinical Practice Guideline for the Evaluation and Management of Chronic Kidney Disease. Kidney Intnl Suppl Jun 2012;3:1). The CKD-EPI equation should not be used for patients with unstable renal function and has not been validated in children and those over 70. Current interpretive data was last reviewed 2020 Blood 05/30/2021 4:05 AM STAFF FORESTER 05/30/2021 4:17 AM STAFF FORESTER Silviano Huddleston ESCROW CLERK LAB BLOOD ORDERABLES Final Result [facility] [address] [place] [address] * (ABNORMAL) Basic metabolic panel (05/30/2021 4:05 AM STAFF FORESTER) Sodium 131(L) 135 - 145 mmol/L [facility] Potassium, pl 4.0 3.3 - 4.9 mmol/L [facility] Chloride 100 97 - 110 mmol/L [facility] CO2 20(L) 22 - 32 mmol/L [facility] Anion gap 11 2 - 15 mmol/L [facility] BUN 20 8 - 25 mg/dL [facility] Creatinine 0.47(L) 0.80 - 1.30 mg/dL [facility] Glucose 144 70 - 199 mg/dL [facility] Comment: Interpretive Data Fasting glucose >/= 126 [...] interpretive data was last revised 2017. Calcium 8.6 8.5 - 10.3 mg/dL [facility] Blood 05/30/2021 4:05 AM STAFF FORESTER 05/30/2021 4:17 AM STAFF FORESTER Silviano Huddleston ESCROW CLERK LAB BLOOD ORDERABLES Final Result [facility] [address] [place] [address] * (ABNORMAL) CBC without differential (05/30/2021 4:05 AM STAFF FORESTER) WBC 14.4(H) 3.8 - 9.9 K/cumm [facility] Hgb 10.0(L) 13.0 - 17.5 g/dL [facility] Hct 29.8(L) 38.9 - 50.3 % [facility] Plt 467(H) 150 - 400 K/cumm [facility] MPV 11.2 9.1 - 12.3 fL [facility] RBC 3.23(L) 4.30 - 5.80 M/cumm [facility] MCV 92.3 81.3 - 96.4 fL [facility] MCH 31.0 27.1 - 33.3 pg [facility] MCHC 33.6 32.3 - 35.7 g/dL [facility] RDW CV 14.0 11.1 - 14.9 % [facility] RDW SD 46.5 35.7 - 48.1 fL [facility] NRBC abs 0.00 0.00 - 0.01 K/cumm [facility] Blood 05/30/2021 4:05 AM STAFF FORESTER 05/30/2021 4:17 AM STAFF FORESTER Silviano Huddleston ESCROW CLERK LAB BLOOD ORDERABLES Final Result Performing Organization Address [facility] Co de Phone Number [facility] DON [address] [facility] [address] [place], [place] [id number] * Magnesium (05/30/2021 4:05 AM STAFF FORESTER) Magnesium 1.9 1.4 - 2.5 mg/dL [facility] Blood 05/30/2021 4:05 AM STAFF FORESTER 05/30/2021 4:17 AM STAFF FORESTER Silviano Huddleston ESCROW CLERK LAB BLOOD ORDERABLES Final Result Performing Organization Address [facility] Co de Phone Number [facility] DON [address] [facility] [address] [place], [place] [id number] * Phosphorus (05/30/2021 4:05 AM STAFF FORESTER) Phosphorus, pl 2.4 2.3 - 4.5 mg/dL [facility] Blood 05/30/2021 4:05 AM STAFF FORESTER 05/30/2021 4:17 AM STAFF FORESTER Silviano Huddleston NP LAB BLOOD ORDERABLES Final Result Performing Organization Address [facility]/ZIP Co de Phone Number [facility] [address] [address] [facility] [place] [address] * (ABNORMAL) POCT glucose (05/29/2021 9:43 PM STAFF FORESTER) Glucose, POC 220(H) 70 - 199 mg/dL [facility] Blood 05/29/2021 9:43 PM STAFF FORESTER 05/29/2021 9:43 PM STAFF FORESTER Lc Simons MD LAB POCT ORDERABLES - DEVICE Final Result Performing Organization Address [facility] Co de Phone Number [facility] [address] [place] [address] * Critical Care (05/29/2021 8:51 PM STAFF FORESTER) Narrative Austin Hoffman MD - 05/29/2021 8:51 PM STAFF FORESTER Marek Mei NP ? 05/30/2021 ??5:54 AM Critical Care Performed by: Marek Mei NP Authorized by: Marek Mei NP CRITICAL CARE: ??Team: ??CHNE ??Shift: ??PM ??Level of Billing: ??Critical Care ??My time spent with this patient was 75 minutes: Critical Provider Statement: I have seen and examined the patient on this day of service. I have reviewed and confirmed the history, physical exam, laboratory and radiologic data as documented in the signed ICU note. I have reviewed and discussed my treatment plan with the ICU team and other medical/environmental remediation consultant staff, making frequent assessments and decisions regarding this patient's complex medical care. Critical Care time was exclusive of time spent performing separately billed procedures, treating other patients, and teaching. This time was in addition to and separate from critical care provided by other practitioners in my group on this day of service. Critical Care was necessary to treat or prevent imminent or life-threatening deterioration of the following conditions: ? Acute pain/acute postoperative pain ?? COVID 19 ?? Acute hypoxic respiratory failure ?? Hypo- or Hyperglycemia ?? Pneumonia and Leukocytosis ??This time was spent by me doing the following: ? Obtaining peripheral venous access or blood draws, Serial laboratory checks and Serial bedside patient exams ?? Acute pain control and Frequent neurologic exams ?? Active and frequent reassessment of respiratory status and oxygen requirements and Optiflow support ?? Active and frequent monitoring of intake/output and volumen status ?? Review of prior or current culture/gram stain results and Empiric broad coverage antibiotics ?? I spent time reviewing and interpreting data from bedside monitors, laboratory results, and imaging, I spent time discussing the management of this critically ill patient with consultants and the medical staff and I spent time documenting in the medical record us Marek Mei ESCROW CLERK IN CLINIC/BEDSIDE ORDER REJI Final Result * Vancomycin level trough Draw trough 30 minutes prior to 4th dose. (05/29/2021 5:09 PM STAFF FORESTER) Vancomycin trough 13.8 10.0 - 20.0 mcg/mL [facility] Blood 05/29/2021 5:09 PM STAFF FORESTER 05/29/2021 5:11 PM STAFF FORESTER Narrative [facility] - 05/29/2021 5:41 PM STAFF FORESTER Draw trough 30 minutes prior to 4th dose. Rosy Muñoz ESCROW CLERK LAB BLOOD ORDERABLE S Final Result Performing Organization Address [facility] Co de Phone Number [facility] DON [address] [facility] [place] [address] * (ABNORMAL) POCT glucose (05/29/2021 4:56 PM STAFF FORESTER) Glucose, POC 234(H) 70 - 199 mg/dL [facility] Blood 05/29/2021 4:56 PM STAFF FORESTER 05/29/2021 4:56 PM STAFF FORESTER Lc Simons MD LAB POCT ORDERABLES - DEVICE Final Result Performing Organization Address [facility] Co de Phone Number [facility] [address] [address] [facility] [place] [address] * Beta-hydroxybutyrate (05/29/2021 2:42 PM STAFF FORESTER) Beta-Hydroxybut yrate <0.2 <=0.5 mmol/L [facility] Blood 05/29/2021 2:42 PM STAFF FORESTER 05/29/2021 2:42 PM STAFF FORESTER us Elena Kelly NP LAB BLOOD ORDERABLES Final Result Performing Organization Address [facility] Co de Phone Number [facility] [address] [place] [address] * (ABNORMAL) POCT glucose (05/29/2021 11:55 AM STAFF FORESTER) Glucose, POC 274(H) 70 - 199 mg/dL [facility] Blood 05/29/2021 11:5 5 AM STAFF FORESTER 05/29/2021 11:55 AM STAFF FORESTER Lc Simons MD LAB POCT ORDERABLES - DEVICE Final Result Performing Organization Address [facility] Co de Phone Number [facility] [address] [place] [address] * POCT glucose (05/29/2021 8:01 AM STAFF FORESTER) Glucose, POC 91 70 - 199 mg/dL [facility] Blood 05/29/2021 8:01 AM STAFF FORESTER 05/29/2021 8:01 AM STAFF FORESTER Lc Simons MD LAB POCT ORDERABLES - DEVICE Final Result Performing Organization Address [facility] Co de Phone Number [facility] [address] [place] [address] * Critical Care (05/29/2021 7:00 AM STAFF FORESTER) Narrative Dominique Wilkinson MD - 05/29/2021 7:00 AM STAFF FORESTER Elena Kelly NP ? 05/29/2021 ??6:26 PM Critical Care Performed by: Elena Kelly NP Authorized by: Elena Kelly NP CRITICAL CARE: ??Team: ??CHNE ??Shift: ??AM ??Level of Billing: ??Critical Care ??My time spent with this patient was 65 minutes: Critical Provider Statement: I have seen and examined the patient on this day of service. I have reviewed and confirmed the history, physical exam, laboratory and radiologic data as documented in the signed ICU note. I have reviewed and discussed my treatment plan with the ICU team and other medical/environmental remediation consultant staff, making frequent assessments and decisions regarding this patient's complex medical care. Critical Care time was exclusive of time spent performing separately billed procedures, treating other patients, and teaching. This time was in addition to and separate from critical care provided by other practitioners in my group on this day of service. Critical Care was necessary to treat or prevent imminent or life-threatening deterioration of the following conditions: ? Acute pain/acute postoperative pain ?? Acute hypoxic respiratory failure ?? Protein-calorie malnutrition ?? Acid-base disturbance, Acute electrolyte derangement and Hypo- or Hyperglycemia ?? Leukocytosis and Pneumonia ??This time was spent by me doing the following: ? Serial bedside patient exams ?? Acute pain control ?? Active and frequent reassessment of respiratory status and oxygen requirements, Incentive spirometry, pulmonary toilet, Frequent bronchodilator treatments and Optiflow support ?? Glycemic control and Active and frequent monitoring of intake/output and volumen status ?? Active repletion of electrolytes and Initiation/titration of corticosteroids ?? Review of prior or current culture/gram stain results and Empiric broad coverage antibiotics ?? I spent time reviewing and interpreting data from bedside monitors, laboratory results, and imaging, I spent time discussing the management of this critically ill patient with consultants and the medical staff and I spent time documenting in the medical record us Elena Kelly NP IN CLINIC/BEDSIDE ORDERABLE S Final Result * eGFR (05/29/2021 5:28 AM STAFF FORESTER) [facility] eGFR 133 mL/min/1.7 3 m2 [facility] Comment: Interpretive Data Reference Interval Normal ?>/= 90 mL/min/1.73m2 Mildly decreased* ? 60 - 89 mL/min/1.73m2 Mildly to moderately decreased ?45 - 59 mL/min/1.73m2 Moderately to severely decreased ??30 - 44 mL/min/1.73m2 Severely decreased ?15 - 29 mL/min/1.73m2 Kidney Failure ?< 15 ??mL/min/1.73m2 *Relative to young adult level Estimated glomerular filtration rate is determined by the CKD-EPI equation recommended by the National Kidney Foundation (KDIGO 2012 Clinical Practice Guideline for the Evaluation and Management of Chronic Kidney Disease. Kidney Intnl Suppl Jun 2012;3:1). The CKD-EPI equation should not be used for patients with unstable renal function and has not been validated in children and those over 70. Current interpretive data was last reviewed 2020 Blood 05/29/2021 5:28 AM STAFF FORESTER 05/29/2021 6:24 AM STAFF FORESTER Silviano Huddleston ESCROW CLERK LAB BLOOD ORDERABLES Final Result [facility] [address] [place] [address] * (ABNORMAL) Basic metabolic panel (05/29/2021 5:28 AM STAFF FORESTER) Sodium 130(L) 135 - 145 mmol/L [facility] Potassium, pl 4.1 3.3 - 4.9 mmol/L [facility] Chloride 101 97 - 110 mmol/L [facility] CO2 18(L) 22 - 32 mmol/L [facility] Anion gap 11 2 - 15 mmol/L [facility] BUN 18 8 - 25 mg/dL [facility] Creatinine 0.38(L) 0.80 - 1.30 mg/dL [facility] Glucose 105 70 - 199 mg/dL [facility] Comment: Interpretive Data Fasting glucose >/= 126 [...] interpretive data was last revised 2017. Calcium 8.6 8.5 - 10.3 mg/dL [facility] Blood 05/29/2021 5:28 AM STAFF FORESTER 05/29/2021 6:24 AM STAFF FORESTER us Silviano Huddleston NP LAB BLOOD ORDERABLES Final Result [facility] [address] [place] [address] * (ABNORMAL) CBC without differential (05/29/2021 5:28 AM STAFF FORESTER) WBC 16.1(H) 3.8 - 9.9 K/cumm [facility] Hgb 10.1(L) 13.0 - 17.5 g/dL [facility] Hct 31.3(L) 38.9 - 50.3 % [facility] Plt 508(H) 150 - 400 K/cumm [facility] MPV 11.3 9.1 - 12.3 fL [facility] RBC 3.41(L) 4.30 - 5.80 M/cumm [facility] MCV 91.8 81.3 - 96.4 fL [facility] MCH 29.6 27.1 - 33.3 pg [facility] MCHC 32.3 32.3 - 35.7 g/dL [facility] RDW CV 13.7 11.1 - 14.9 % [facility] RDW SD 45.6 35.7 - 48.1 fL [facility] NRBC abs 0.00 0.00 - 0.01 K/cumm [facility] Blood 05/29/2021 5:28 AM STAFF FORESTER 05/29/2021 5:53 AM STAFF FORESTER Silviano Huddleston ESCROW CLERK LAB BLOOD ORDERABLES Final Result Performing Organization Address [facility] Co de Phone Number [facility] [address] [place] [address] * Magnesium (05/29/2021 5:28 AM STAFF FORESTER) Magnesium 1.8 1.4 - 2.5 mg/dL [facility] Blood 05/29/2021 5:28 AM STAFF FORESTER 05/29/2021 6:24 AM STAFF FORESTER Silviano Huddleston ESCROW CLERK LAB BLOOD ORDERABLES Final Result Performing Organization Address [facility] Phone Number [facility] DON [address] [place] [address] * Phosphorus (05/29/2021 5:28 AM STAFF FORESTER) Phosphorus, pl 2.7 2.3 - 4.5 mg/dL [facility] Blood 05/29/2021 5:28 AM STAFF FORESTER 05/29/2021 6:24 AM STAFF FORESTER Silviano Huddleston ESCROW CLERK LAB BLOOD ORDERABLES Final Result Performing Organization Address [facility] Phone Number [facility] [address] [place] [address] * Critical Care (05/28/2021 10:32 PM STAFF FORESTER) Narrative Austin Hoffman MD - 05/28/2021 10:32 PM STAFF FORESTER Rosy Muñoz NP ? 05/28/2021 10:34 PM Critical Care Performed by: Rosy Muñoz NP Authorized by: Rosy Muñoz NP CRITICAL CARE: ??Team: ??CHNE ??Shift: ??PM ??Level of Billing: ??Critical Care ??My time spent with this patient was 30 minutes: Critical Provider Statement: I have seen and examined the patient on this day of service. I have reviewed and confirmed the history, physical exam, laboratory and radiologic data as documented in the signed ICU note. I have reviewed and discussed my treatment plan with the ICU team and other medical/environmental remediation consultant staff, making frequent assessments and decisions regarding this patient's complex medical care. Critical Care time was exclusive of time spent performing separately billed procedures, treating other patients, and teaching. This time was in addition to and separate from critical care provided by other practitioners in my group on this day of service. Critical Care was necessary to treat or prevent imminent or life-threatening deterioration of the following conditions: ? COVID 19 pneumonia Polymicrobial pneumonia Mild, improved hematuria ?? Acute hypoxic respiratory failure ?? Hypo- or Hyperglycemia ??This time was spent by me doing the following: ? Obtaining peripheral venous access or blood draws, Serial laboratory checks and Serial bedside patient exams ?? Frequent neurologic exams ?? Serial neurovascular exams ?? Active and frequent reassessment of respiratory status and oxygen requirements, Incentive spirometry, pulmonary toilet and Optiflow support ?? Active and frequent monitoring of intake/output and volumen status, Glycemic control and Serial abdominal exams ?? Empiric broad coverage antibiotics and Review of prior or current culture/gram stain results ?? I spent time reviewing and interpreting data from bedside monitors, laboratory results, and imaging, I spent time discussing the management of this critically ill patient with consultants and the medical staff and I spent time documenting in the medical record Rosy Muñoz ESCROW CLERK IN CLINIC/BEDSIDE O RDERABLES Final Result * (ABNORMAL) POCT glucose (05/28/2021 7:55 PM STAFF FORESTER) [facility] Signature Glucose, POC 205(H) 70 - 199 mg/dL [facility] Blood 05/28/2021 7:55 PM STAFF FORESTER 05/28/2021 7:55 PM STAFF FORESTER Lc Simons MD LAB POCT ORDERABLES - DEVICE Final Result [facility] [address] [place] [address] * (ABNORMAL) POCT glucose (05/28/2021 5:47 PM STAFF FORESTER) Glucose, POC 244(H) 70 - 199 mg/dL [facility] Blood 05/28/2021 5:47 PM STAFF FORESTER 05/28/2021 5:47 PM STAFF FORESTER Lc Simons MD LAB POCT ORDERABLES - DEVICE Final Result Performing Organization Address [facility] de Phone Number [facility] DON [address] [address] [facility] [place] [address] * POCT glucose (05/28/2021 11:53 AM STAFF FORESTER) Glucose, POC 131 70 - 199 mg/dL [facility] Blood 05/28/2021 11:5 3 AM STAFF FORESTER 05/28/2021 11:53 AM STAFF FORESTER Lc Simons MD LAB POCT ORDERABLES - DEVICE Final Result Performing Organization Address [facility] de Phone Number [facility] DON [address] [address] [facility] [place] [address] * Critical Care (05/28/2021 11:04 AM STAFF FORESTER) Narrative Alejandro Gonzalez NP - 05/28/2021 11:04 AM STAFF FORESTER Alejandro Gonzalez NP ? 05/28/2021 11:55 AM Critical Care Performed by: Alejandro Gonzalez NP Authorized by: Alejandro Gonzalez NP CRITICAL CARE: ??Team: ??CHNE ??Shift: ??AM ??Level of Billing: ??Critical Care ??My time spent with this patient was 40 minutes: Critical Provider Statement: I have seen and examined the patient on this day of service. I have reviewed and confirmed the history, physical exam, laboratory and radiologic data as documented in the signed ICU note. I have reviewed and discussed my treatment plan with the ICU team and other medical/environmental remediation consultant staff, making frequent assessments and decisions regarding this patient's complex medical care. Critical Care time was exclusive of time spent performing separately billed procedures, treating other patients, and teaching. This time was in addition to and separate from critical care provided by other practitioners in my group on this day of service. Critical Care was necessary to treat or prevent imminent or life-threatening deterioration of the following conditions: ? COVID-19 ?? Acute hypoxic respiratory failure ?? Hypo- or Hyperglycemia ?? Pneumonia and Sepsis ??This time was spent by me doing the following: ? Serial bedside patient exams and Serial laboratory checks ?? Active and frequent reassessment of respiratory status and oxygen requirements, Optiflow support and Frequent bronchodilator treatments ?? Active and frequent monitoring of intake/output and volumen status and Glycemic control ?? Initiation/titration of corticosteroids ?? Empiric broad coverage antibiotics, Obtaining appropriate cultures and Review of prior or current culture/gram stain results ?? I spent time reviewing and interpreting data from bedside monitors, laboratory results, and imaging, I spent time discussing the management of this critically ill patient with consultants and the medical staff and I spent time documenting in the medical record Alejandro Gonzalez NP IN CLINIC/BEDSIDE ORDER REJI Final Result * POCT glucose (05/28/2021 9:49 AM STAFF FORESTER) Glucose, POC 117 70 - 199 mg/dL [facility] Blood 05/28/2021 9:49 AM STAFF FORESTER 05/28/2021 9:49 AM STAFF FORESTER Lc Simons MD LAB POCT ORDERABLES - DEVICE Final Result Performing Organization Address [facility] de Phone Number [facility]AR[facility] [address] [facility] [place] [address] * POCT glucose (05/28/2021 6:42 AM STAFF FORESTER) Glucose, POC 121 70 - 199 mg/dL [facility] Blood 05/28/2021 6:42 AM STAFF FORESTER 05/28/2021 6:42 AM STAFF FORESTER Lc Simons MD LAB POCT ORDERABLES - DEVICE Final Result Performing Organization Address [facility] de Phone Number [facility] [address] [address] [facility] [place] [address] * XR Chest 1 Vw Portable (05/28/2021 6:13 AM STAFF FORESTER) Anatomical Region Laterality Modality Body, Chest N/A Computed Radiogr aphy 05/28/2021 8:29 AM STAFF FORESTER Impressions 05/28/2021 8:29 AM STAFF FORESTER Slight improved aeration especially in the left lung.. Electronically signed by: Deacon Cummings M.D. Narrative 05/28/2021 8:29 AM STAFF FORESTER EXAMINATION: XR CHEST 1 VIEW DATE: 05/28/2021 [...] Electronically signed by: Deacon Cummings M.D. us Rhina Granados MD IMG XR PROCEDURES Final Resu lt * POCT glucose (05/28/2021 4:40 AM STAFF FORESTER) Glucose, POC 116 70 - 199 mg/dL [facility] Blood 05/28/2021 4:40 AM STAFF FORESTER 05/28/2021 4:40 AM STAFF FORESTER us Lc Simons MD LAB POCT ORDERABLES - DEVICE Final Result [facility]K [address] [place] [address] * eGFR (05/28/2021 2:47 AM STAFF FORESTER) eGFR 130 mL/min/1.7 3 m2 [facility] Comment: Interpretive Data Reference Interval Normal ?>/= 90 mL/min/1.73m2 Mildly decreased* ? 60 - 89 mL/min/1.73m2 Mildly to moderately decreased ?45 - 59 mL/min/1.73m2 Moderately to severely decreased ??30 - 44 mL/min/1.73m2 Severely decreased ?15 - 29 mL/min/1.73m2 Kidney Failure ?< 15 ??mL/min/1.73m2 *Relative to young adult level Estimated glomerular filtration rate is determined by the CKD-EPI equation recommended by the National Kidney Foundation (KDIGO 2012 Clinical Practice Guideline for the Evaluation and Management of Chronic Kidney Disease. Kidney Intnl Suppl Jun 2012;3:1). The CKD-EPI equation should not be used for patients with unstable renal function and has not been validated in children and those over 70. Current interpretive data was last reviewed 2020 Blood 05/28/2021 2:47 AM STAFF FORESTER 05/28/2021 3:15 AM STAFF FORESTER us Silviano Huddleston ESCROW CLERK LAB BLOOD ORDERABLES Final Result [facility] [address] [place] [address] * (ABNORMAL) Basic metabolic panel (05/28/2021 2:47 AM STAFF FORESTER) Sodium 135 135 - 145 mmol/L [facility] Potassium, pl 3.7 3.3 - 4.9 mmol/L [facility] Chloride 107 97 - 110 mmol/L [facility] CO2 17(L) 22 - 32 mmol/L [facility] Anion gap 11 2 - 15 mmol/L [facility] BUN 19 8 - 25 mg/dL [facility] Creatinine 0.40(L) 0.80 - 1.30 mg/dL [facility] Glucose 68(L) 70 - 199 mg/dL [facility] Comment: Interpretive Data Fasting glucose >/= 126 [...] interpretive data was last revised 2017. Calcium 7.7(L) 8.5 - 10.3 mg/dL [facility] Blood 05/28/2021 2:47 AM STAFF FORESTER 05/28/2021 3:06 AM STAFF FORESTER us Silviano Huddleston ESCROW CLERK LAB BLOOD ORDERABLES Final Result [facility] [address] [place] [address] * (ABNORMAL) CBC without differential (05/28/2021 2:47 AM STAFF FORESTER) WBC 12.1(H) 3.8 - 9.9 K/cumm [facility] Hgb 11.2(L) 13.0 - 17.5 g/dL [facility] Hct 34.3(L) 38.9 - 50.3 % [facility] Plt 468(H) 150 - 400 K/cumm [facility] MPV 11.0 9.1 - 12.3 fL [facility] RBC 3.74(L) 4.30 - 5.80 M/cumm [facility] MCV 91.7 81.3 - 96.4 fL [facility] MCH 29.9 27.1 - 33.3 pg [facility] MCHC 32.7 32.3 - 35.7 g/dL [facility] RDW CV 13.3 11.1 - 14.9 % [facility] RDW SD 43.7 35.7 - 48.1 fL [facility] NRBC abs 0.00 0.00 - 0.01 K/cumm [facility] Blood 05/28/2021 2:47 AM STAFF FORESTER 05/28/2021 3:06 AM STAFF FORESTER Silviano Huddleston ESCROW CLERK LAB BLOOD ORDERABLES Final Result Performing Organization Address [facility] de Phone Number [facility] [address] [facility] [place] [address] * Magnesium (05/28/2021 2:47 AM STAFF FORESTER) Pathologist [facility] Magnesium 1.5 1.4 - 2.5 mg/dL [facility] Blood 05/28/2021 2:47 AM STAFF FORESTER 05/28/2021 3:06 AM STAFF FORESTER Silviano Huddleston ESCROW CLERK LAB BLOOD ORDERABLES Final Result Performing Organization Address [facility] de Phone Number [facility] [address] [address] [facility] [place] [address] * Phosphorus (05/28/2021 2:47 AM STAFF FORESTER) Pathologist [facility] Phosphorus, pl 2.7 2.3 - 4.5 mg/dL [facility] Blood 05/28/2021 2:47 AM STAFF FORESTER 05/28/2021 3:06 AM STAFF FORESTER Silviano Huddleston ESCROW CLERK LAB BLOOD ORDERABLES Final Result Performing Organization Address [facility] de Phone Number [facility] [address] [address] [facility] [place] [address] * (ABNORMAL) Vancomycin level trough Draw trough 30 minutes prior to dose. (05/28/2021 2:47 AM STAFF FORESTER) Pathologist [facility] Vancomycin trough 9.3(L) 10.0 - 20.0 mcg/mL [facility] Blood 05/28/2021 2:47 AM STAFF FORESTER 05/28/2021 3:06 AM STAFF FORESTER Narrative [facility] - 05/28/2021 3:28 AM STAFF FORESTER Draw trough 30 minutes prior to dose. Rosy Muñoz ESCROW CLERK LAB BLOOD ORDERABLE S Final Result Performing Organization Address [facility] de Phone Number [facility] [address] [address] [facility] [place] [address] * POCT glucose (05/28/2021 1:22 AM STAFF FORESTER) Glucose, POC 109 70 - 199 mg/dL [facility] Blood 05/28/2021 1:22 AM STAFF FORESTER 05/28/2021 1:22 AM STAFF FORESTER Lc Simons MD LAB POCT ORDERABLES - DEVICE Final Result Performing Organization Address [facility] Phone Number [facility] [address] [address] [facility] [place] [address] * POCT glucose (05/27/2021 10:17 PM STAFF FORESTER) Glucose, POC 83 70 - 199 mg/dL [facility] Blood 05/27/2021 10:1 7 PM STAFF FORESTER 05/27/2021 10:17 PM STAFF FORESTER Lc Simons MD LAB POCT ORDERABLES - DEVICE Final Result Performing Organization Address [facility] de Phone Number [facility] [address] [place] [address] * Critical Care (05/27/2021 8:35 PM STAFF FORESTER) Narrative Austin Hoffman MD - 05/27/2021 8:35 PM STAFF FORESTER Rosy Muñoz NP ? 05/28/2021 ??5:37 AM Critical Care Performed by: Rosy Muñoz NP Authorized by: Rosy Muñoz NP CRITICAL CARE: ??Team: ??CHNE ??Shift: ??PM ??Level of Billing: ??Critical Care ??My time spent with this patient was 35 minutes: Critical Provider Statement: I have seen and examined the patient on this day of service. I have reviewed and confirmed the history, physical exam, laboratory and radiologic data as documented in the signed ICU note. I have reviewed and discussed my treatment plan with the ICU team and other medical/environmental remediation consultant staff, making frequent assessments and decisions regarding this patient's complex medical care. Critical Care time was exclusive of time spent performing separately billed procedures, treating other patients, and teaching. This time was in addition to and separate from critical care provided by other practitioners in my group on this day of service. Critical Care was necessary to treat or prevent imminent or life-threatening deterioration of the following conditions: ? COVID 19 viral pneumonia Rhinovirus pneumonia MRSA, Moraxella, H Influenzae pneumonia Mild hematuria ?? Acute hypoxic respiratory failure and Atelectasis ?? Pneumonia ??This time was spent by me doing the following: ? Obtaining peripheral venous access or blood draws, Serial bedside patient exams and Serial laboratory checks ?? Frequent neurologic exams ?? Serial neurovascular exams ?? Active and frequent reassessment of respiratory status and oxygen requirements, Incentive spirometry, pulmonary toilet and Optiflow support ?? Active and frequent monitoring of intake/output and volumen status, Glycemic control and Serial abdominal exams ?? Empiric broad coverage antibiotics and Review of prior or current culture/gram stain results ?? I spent time reviewing and interpreting data from bedside monitors, laboratory results, and imaging, I spent time discussing the management of this critically ill patient with consultants and the medical staff and I spent time documenting in the medical record Rosy Muñoz NP IN CLINIC/BEDSIDE O RDERABLES Final Result * POCT glucose (05/27/2021 5:56 PM STAFF FORESTER) Glucose, POC 186 70 - 199 mg/dL [facility] Blood 05/27/2021 5:56 PM STAFF FORESTER 05/27/2021 5:56 PM STAFF FORESTER Lc Simons MD LAB POCT ORDERABLES - DEVICE Final Result [facility] [address] [place] [address] * Critical Care (05/27/2021 2:44 PM STAFF FORESTER) Narrative Dominique Wilkinson MD - 05/27/2021 2:44 PM STAFF FORESTER Alejandro Gonzalez NP ? 05/27/2021 ??2:46 PM Critical Care Performed by: Alejandro Gonzalez NP Authorized by: Alejandro Gonzalez NP CRITICAL CARE: ??Team: ??CHNE ??Shift: ??AM ??Level of Billing: ??Critical Care ??My time spent with this patient was 35 minutes: Critical Provider Statement: I have seen and examined the patient on this day of service. I have reviewed and confirmed the history, physical exam, laboratory and radiologic data as documented in the signed ICU note. I have reviewed and discussed my treatment plan with the ICU team and other medical/environmental remediation consultant staff, making frequent assessments and decisions regarding this patient's complex medical care. Critical Care time was exclusive of time spent performing separately billed procedures, treating other patients, and teaching. This time was in addition to and separate from critical care provided by other practitioners in my group on this day of service. Critical Care was necessary to treat or prevent imminent or life-threatening deterioration of the following conditions: ? COVID-19 ?? Acute hypoxic respiratory failure ?? Acute electrolyte derangement ?? Sepsis, Leukocytosis and Pneumonia ??This time was spent by me doing the following: ? Serial bedside patient exams ?? Frequent bronchodilator treatments, Active and frequent reassessment of respiratory status and oxygen requirements and Optiflow support ?? Empiric broad coverage antibiotics, Obtaining appropriate cultures and Review of prior or current culture/gram stain results ?? I spent time reviewing and interpreting data from bedside monitors, laboratory results, and imaging, I spent time documenting in the medical record and I spent time discussing the management of this critically ill patient with consultants and the medical staff Alejandro Gonzalez NP IN CLINIC/BEDSIDE ORDER REJI Final Result * POCT glucose (05/27/2021 12:19 PM STAFF FORESTER) Glucose, POC 164 70 - 199 mg/dL [facility] Blood 05/27/2021 12:1 9 PM STAFF FORESTER 05/27/2021 12:19 PM STAFF FORESTER Lc Simons MD LAB POCT ORDERABLES - DEVICE Final Result Performing Organization Address [facility] de Phone Number [facility] [address] [address] [facility] [place] [address] * POCT glucose (05/27/2021 8:11 AM STAFF FORESTER) Glucose, POC 87 70 - 199 mg/dL [facility] Blood 05/27/2021 8:11 AM STAFF FORESTER 05/27/2021 8:11 AM STAFF FORESTER Rhina Granados MD LAB POCT ORDERABLES - DEVICE Final Result Performing Organization Address [facility] de Phone Number [facility] [address] [address] [facility] [place] [address] * POCT glucose (05/27/2021 6:47 AM STAFF FORESTER) Glucose, POC 102 70 - 199 mg/dL [facility] Blood 05/27/2021 6:47 AM STAFF FORESTER 05/27/2021 6:47 AM STAFF FORESTER Rhina Granados MD LAB POCT ORDERABLES - DEVICE Final Result Performing Organization Address [facility] de Phone Number [facility] [address] [address] [facility] [place] [address] * eGFR (05/27/2021 6:40 AM STAFF FORESTER) eGFR 127 mL/min/1.7 3 m2 [facility] Comment: Interpretive Data Reference Interval Normal ?>/= 90 mL/min/1.73m2 Mildly decreased* ? 60 - 89 mL/min/1.73m2 Mildly to moderately decreased ?45 - 59 mL/min/1.73m2 Moderately to severely decreased ??30 - 44 mL/min/1.73m2 Severely decreased ?15 - 29 mL/min/1.73m2 Kidney Failure ?< 15 ??mL/min/1.73m2 *Relative to young adult level Estimated glomerular filtration rate is determined by the CKD-EPI equation recommended by the National Kidney Foundation (KDIGO 2012 Clinical Practice Guideline for the Evaluation and Management of Chronic Kidney Disease. Kidney Intnl Suppl Jun 2012;3:1). The CKD-EPI equation should not be used for patients with unstable renal function and has not been validated in children and those over 70. Current interpretive data was last reviewed 2020 Blood 05/27/2021 6:40 AM STAFF FORESTER 05/27/2021 6:57 AM STAFF FORESTER us Silviano Huddleston ESCROW CLERK LAB BLOOD ORDERABLES Final Result [facility] [address] [place] [address] * (ABNORMAL) Basic metabolic panel (05/27/2021 6:40 AM STAFF FORESTER) Sodium 130(L) 135 - 145 mmol/L [facility] Potassium, pl 4.6 3.3 - 4.9 mmol/L [facility] Chloride 100 97 - 110 mmol/L [facility] CO2 20(L) 22 - 32 mmol/L [facility] Anion gap 10 2 - 15 mmol/L [facility] BUN 22 8 - 25 mg/[facility] Creatinine 0.42(L) 0.80 - 1.30 mg/dL [facility] Glucose 183 70 - 199 mg/dL [facility] Comment: Interpretive Data Fasting glucose >/= 126 [...] interpretive data was last revised 2017. Calcium 8.9 8.5 - 10.3 mg/dL [facility] Blood 05/27/2021 6:40 AM STAFF FORESTER 05/27/2021 6:57 AM STAFF FORESTER Silviano Huddleston ESCROW CLERK LAB BLOOD ORDERABLES Final Result [facility] [address] [place] [address] * (ABNORMAL) CBC without differential (05/27/2021 6:40 AM STAFF FORESTER) WBC 13.5(H) 3.8 - 9.9 K/cumm [facility] Hgb 9.9(L) 13.0 - 17.5 g/dL [facility] Hct 29.8(L) 38.9 - 50.3 % [facility] Plt 519(H) 150 - 400 K/cumm [facility] MPV 11.0 9.1 - 12.3 fL [facility] RBC 3.23(L) 4.30 - 5.80 M/cumm [facility] MCV 92.3 81.3 - 96.4 fL [facility] MCH 30.7 27.1 - 33.3 pg [facility] MCHC 33.2 32.3 - 35.7 g/dL [facility] RDW CV 13.5 11.1 - 14.9 % [facility] RDW SD 45.3 35.7 - 48.1 fL [facility] NRBC abs 0.00 0.00 - 0.01 K/cumm [facility] Blood 05/27/2021 6:40 AM STAFF FORESTER 05/27/2021 6:56 AM STAFF FORESTER Silviano Huddleston NP LAB BLOOD ORDERABLES Final Result [facility] [address] [place] [address] * Magnesium (05/27/2021 6:40 AM STAFF FORESTER) Magnesium 1.7 1.4 - 2.5 mg/dL [facility] Blood 05/27/2021 6:40 AM STAFF FORESTER 05/27/2021 6:57 AM STAFF FORESTER Silviano Huddleston ESCROW CLERK LAB BLOOD ORDERABLES Final Result Performing Organization Address [facility] Co de Phone Number [facility]RIK DON [address] [place] [address] * Phosphorus (05/27/2021 6:40 AM STAFF FORESTER) Phosphorus, pl 3.0 2.3 - 4.5 mg/dL [facility] Blood 05/27/2021 6:40 AM STAFF FORESTER 05/27/2021 6:57 AM STAFF FORESTER Silviano Huddleston ESCROW CLERK LAB BLOOD ORDERABLES Final Result Performing Organization Address [facility] Co de Phone Number [facility]RIK DON [address] [place] [address] * XR Chest 1 Vw Portable (05/27/2021 5:40 AM STAFF FORESTER) Anatomical Region Laterality Modality Body, Chest N/A Computed Radiogr aphy 05/27/2021 8:09 AM STAFF FORESTER Impressions 05/27/2021 8:09 AM STAFF FORESTER Persistent bilateral infiltrates unchanged, worse on the left than the right. Electronically signed by: Deacon Cummings M.D. Narrative 05/27/2021 8:09 AM STAFF FORESTER EXAMINATION: XR CHEST 1 VIEW DATE: 05/27/2021 [...] right. Electronically signed by: Deacon Cummings M.D. Rhina Granados MD IMG XR PROCEDURES Final Resu lt * POCT glucose (05/27/2021 12:41 AM STAFF FORESTER) Glucose, POC 118 70 - 199 mg/dL [facility] Blood 05/27/2021 12:4 1 AM STAFF FORESTER 05/27/2021 12:41 AM STAFF FORESTER Result [facility] Rhina Granados MD LAB POCT ORDERABLES - DEVICE Final Result Performing Organization Address [facility] de Phone Number [facility] [address] [place] [address] * POCT glucose (05/26/2021 10:24 PM STAFF FORESTER) Glucose, POC 93 70 - 199 mg/dL [facility] Blood 05/26/2021 10:2 4 PM STAFF FORESTER 05/26/2021 10:24 PM STAFF FORESTER Result [facility] Rhina Granados MD LAB POCT ORDERABLES - DEVICE Final Result Performing Organization Address [facility] de Phone Number [facility] [address] [place] [address] * Critical Care (05/26/2021 9:59 PM STAFF FORESTER) Narrative Frank Dugan MD - 05/26/2021 9:59 PM STAFF FORESTER Frank Dugan MD ? 05/26/2021 10:02 PM Critical Care Performed by: Frank Dugan MD Authorized by: Frank Dugan MD CRITICAL CARE: ??Team: ??CHNE ??Shift: ??PM ??Level of Billing: ??Critical Care ??My time spent with this patient was 40 minutes: Critical Provider Statement: I have seen and examined the patient on this day of service. I have reviewed and confirmed the history, physical exam, laboratory and radiologic data as documented in the signed ICU note. I have reviewed and discussed my treatment plan with the ICU team and other medical/environmental remediation consultant staff, making frequent assessments and decisions regarding this patient's complex medical care. Critical Care time was exclusive of time spent performing separately billed procedures, treating other patients, and teaching. This time was in addition to and separate from critical care provided by other practitioners in my group on this day of service. Critical Care was necessary to treat or prevent imminent or life-threatening deterioration of the following conditions: ? Acute pain/acute postoperative pain ?? Undifferentiated shock ?? Status post CABG x4 COVID-19 pneumonia ?? Acute hypoxic respiratory failure ?? Protein-calorie malnutrition ?? Hypo- or Hyperglycemia ?? Sepsis, Pneumonia and Leukocytosis ??This time was spent by me doing the following: ? Acute pain control and Administration of sedatives and psychotropic medications ?? Initiation/active titration of vasoactive medications ?? Active and frequent reassessment of respiratory status and oxygen requirements, Frequent bronchodilator treatments, Non-invasive positive pressure ventilator management, Optiflow support and Prone positioning ?? Glycemic control and Active and frequent monitoring of intake/output and volumen status ?? Active repletion of electrolytes ?? Obtaining appropriate cultures, Empiric broad coverage antibiotics and Review of prior or current culture/gram stain results ?? I spent time documenting in the medical record, I spent time discussing the management of this critically ill patient with consultants and the medical staff and I spent time reviewing and interpreting data from bedside monitors, laboratory results, and imaging Frank Dugan MD IN CLINIC/BEDSIDE ORDERABLES Final Result * POCT glucose (05/26/2021 5:03 PM STAFF FORESTER) Glucose, POC 159 70 - 199 mg/dL [facility] Blood 05/26/2021 5:03 PM STAFF FORESTER 05/26/2021 5:03 PM STAFF FORESTER us Rhina Granados MD LAB POCT ORDERABLES - [place]ICE [place] [address] [address] [place] [address] * Critical Care (05/26/2021 4:37 PM STAFF FORESTER) Narrative Dominique Wilkinson MD - 05/26/2021 4:37 PM STAFF FORESTER Rosy Muñoz NP ? 05/26/2021 ??7:39 PM Critical Care Performed by: Rosy Muñoz NP Authorized by: Rosy Muñoz NP CRITICAL CARE: ??Team: ??[facility] ??Shift: ??AM ??Level of Billing: ??Critical Care ??My time spent with this patient was 120 minutes: Critical Provider Statement: I have seen and examined the patient on this day of service. I have reviewed and confirmed the history, physical exam, laboratory and radiologic data as documented in the signed ICU note. I have reviewed and discussed my treatment plan with the ICU team and other medical/environmental remediation consultant staff, making frequent assessments and decisions regarding this patient's complex medical care. Critical Care time was exclusive of time spent performing separately billed procedures, treating other patients, and teaching. This time was in addition to and separate from critical care provided by other practitioners in my group on this day of service. Critical Care was necessary to treat or prevent imminent or life-threatening deterioration of the following conditions: ? Poly-organism pneumonia - viral and bacterial COVID 19 viral pneumonia ?? Acute hypoxic respiratory failure ??This time was spent by me doing the following: ? Obtaining peripheral venous access or blood draws, Serial bedside patient exams and Serial laboratory checks ?? Frequent neurologic exams ?? Serial neurovascular exams ?? Active and frequent reassessment of respiratory status and oxygen requirements, Optiflow support, Incentive spirometry, pulmonary toilet, Non-invasive positive pressure ventilator management and Prone positioning ?? Active and frequent monitoring of intake/output and volumen status, Glycemic control and Serial abdominal exams ?? Empiric broad coverage antibiotics, Review of prior or current culture/gram stain results and Obtaining appropriate cultures ?? I spent time reviewing and interpreting data from bedside monitors, laboratory results, and imaging, I spent time discussing the management of this critically ill patient with consultants and the medical staff and I spent time documenting in the medical record Rosy Muñoz NP IN CLINIC/BEDSIDE O RDERABLES Final Result * (ABNORMAL) Urinalysis, microscopic only (05/26/2021 4:01 PM STAFF FORESTER) WBC, ur 11-20(A) 0 - 5 /HPF [facility] RBC, ur >50(A) 0 - 2 /HPF [facility] CH Bacteria, ur Trace(A) [facility] Yeast, ur 4+(A) [facility] CH Urine 05/26/2021 4:01 PM STAFF FORESTER 05/26/2021 4:15 PM STAFF FORESTER Rosy Muñoz NP LAB [place] [address] Department [place] [address] * (ABNORMAL) Urinalysis reflex to microscopic (05/26/2021 4:01 PM STAFF FORESTER) Color, ur Yellow Yellow [facility] Clarity, ur Clear Clear [facility] Specific gravity, ur 1.028 1.003 - 1.030 [facility] CH pH, urine 7.0 [facility] Protein, ur ql Negative Negative [facility] Glucose, ur ql 3+(A) Negative [facility] Ketones, ur Negative Negative [facility] CH Bilirubin, ur Negative Negative [facility] CH Blood, ur 2+(A) Negative [facility] CH Urobilinogen, ur <2.0 <2.0 mg/dL [facility] Nitrite, ur Negative Negative [facility] Leukocyte esterase, ur 1+(A) Negative [facility] UA reflex comment Reflex to microscopic UA will be performed. [facility] CH Urine 05/26/2021 4:01 PM STAFF FORESTER 05/26/2021 4:15 PM STAFF FORESTER Narrative [facility] - 05/26/2021 4:56 PM STAFF FORESTER ?? Urine pH is affected by diet, medications, systemic acid-base disturbances, and renal tubular function. ??pH may affect urinary stone formation. ??For example, urine pH below 6.0 may help reduce the tendency for calcium phosphate stones and pH greater than 6.0 may reduce the tendency for uric acid stone formation. Source: [facility] [place]. Last revised 06-30-2017 Rosy Muñoz NP LAB URINE ORDERABLE S Final Result Performing Organization Address [facility] de Phone Number [facility] [address] [place] [address] * Strep pneumoniae antigen, urine Urine (05/26/2021 4:01 PM STAFF FORESTER) Pathologist [facility] S. pneumoniae Ag Negative Negative [facility] Comment: A negative result is a presumptive negative for pneumococcal pneumonia, suggesting no current or recent pneumococcal infection. ??Infection due to Streptococcus pneumoniae cannot be ruled out since the antigen present in the specimen may be below the detection limit of the test. ??Pneumococcal pneumonia is best diagnosed by a sputum culture. ??CAUTIONS: A negative result does not exclude Streptococcus pneumoniae infection. ??A diagnosis of Streptococcus pneumoniae infection must take into consideration all test results, culture results, and the clinical presentation of the patient. Urine 05/26/2021 4:01 PM STAFF FORESTER 05/26/2021 4:15 PM STAFF FORESTER Rosy Muñoz NP LAB MICROBIOLOGY - GENERAL ORDERABLES Final Result Performing Organization Address [facility] de Phone Number [facility] [address] [facility] [place] [address] * Legionella antigen Urine (05/26/2021 4:01 PM STAFF FORESTER) Legionella Ag Negative Negative [facility] Comment: Interpretive Data This test detects only Legionella pneumophila serogroup 1 antigen. ?? Current interpretive data was last revised on 2019. Urine 05/26/2021 4:01 PM STAFF FORESTER 05/26/2021 4:15 PM STAFF FORESTER Rosy Knutson Wanda SCHWARTZ LAB MICROBIOLOGY - GENERAL ORDERABLES Final Result [facility] [place] [address] Department [place] [address] * Blood culture Blood Antecubital, right (05/26/2021 1:43 PM STAFF FORESTER) Report Final Report: No growth [facility] DON Comment:Testing performed by : [facility], [address] [place]., [address] Blood (Antecubital, right) 05/26/2021 1:43 PM STAFF FORESTER 05/26/2021 6:23 PM STAFF FORESTER Narrative [facility] DON - 05/31/2021 7:00 AM STAFF FORESTER From a different site than #1. 1. ?Blood cultures are incubated for 4 days on a continuously monitored blood culture system. The first report of a negative culture is issued within 24 hours of receipt of the specimen in the laboratory. 2. ?Positive culture results are reported as soon as they are detected. 3. ?The most important factor for detection of microbes in the setting of bloodstream infection is the volume of blood submitted for culture. Failure to collect an optimal blood volume can result in false negative blood cultures. For pediatric patients, the recommended blood volume to collect is 1 mL of blood per year of patient age (up to 20 mL) per blood culture set. For adult patients, 20 mL of blood, divided equally between aerobic and anaerobic blood culture bottles, is recommended for each blood culture set. 4. ?For blood cultures with Gram-positive cocci, a rapid molecular test for organism identification may be performed using the [employer] Gram-Positive Blood Culture Assay. This assay detects microbial DNA in positive blood culture broth via hybridization of target DNA to capture oligonucleotides on a microarray. This assay has been cleared by the [place] Food and Drug Administration and its performance characteristics have been verified by the [facility]. 5. ?For questions about this culture, contact the Microbiology Laboratory at [phone]. Interpretive data was last revised on 2019. Renee Funkhouser ESCROW CLERK LAB MICROBIOLOGY - GENERAL ORDERABLES Final Result [facility] [address] [place] [address] * Blood culture Blood Antecubital, left (05/26/2021 1:43 PM STAFF FORESTER) Report Final Report: No growth [facility] DON Comment:Testing performed by : [facility], [address] [place]., [address] Blood (Antecubital, left) 05/26/2021 1:43 PM STAFF FORESTER 05/26/2021 6:23 PM STAFF FORESTER Narrative [facility] DON - 05/31/2021 7:00 AM STAFF FORESTER 1. ?Blood cultures are incubated for 4 days on a continuously monitored blood culture system. The first report of a negative culture is issued within 24 hours of receipt of the specimen in the laboratory. 2. ?Positive culture results are reported as soon as they are detected. 3. ?The most important factor for detection of microbes in the setting of bloodstream infection is the volume of blood submitted for culture. Failure to collect an optimal blood volume can result in false negative blood cultures. For pediatric patients, the recommended blood volume to collect is 1 mL of blood per year of patient age (up to 20 mL) per blood culture set. For adult patients, 20 mL of blood, divided equally between aerobic and anaerobic blood culture bottles, is recommended for each blood culture set. 4. ?For blood cultures with Gram-positive cocci, a rapid molecular test for organism identification may be performed using the [employer] Gram-Positive Blood Culture Assay. This assay detects microbial DNA in positive blood culture broth via hybridization of target DNA to capture oligonucleotides on a microarray. This assay has been cleared by the [place] Food and Drug Administration and its performance characteristics have been verified by the [facility]. 5. ?For questions about this culture, contact the Microbiology Laboratory at [phone]. Interpretive data was last revised on 2019. Rosy Muñoz NP LAB MICROBIOLOGY - GENERAL ORDERABLES Final Result Performing Organization Address [facility] Co de Phone Number [facility] [place] [address] [place] [address] * MRSA Only (Staphylococcs aureus) PCR Nasal (05/26/2021 1:31 PM STAFF FORESTER) Pathologist [facility] PCR Scrn, Methicillin resistant Staphylococcus aureus (MRSA) Not Detected Not Detected [facility] Comment: Testing performed using Nucleic Acid Amplification with the [employer] Xpert MRSA Assay. This assay detects DNA from SCCmec strains of Staphylococcus aureus using Real- Time PCR and has been cleared by the FDA. Performance characteristics have been verified by the [facility]. Nasal 05/26/2021 1:31 PM STAFF FORESTER 05/26/2021 1:42 PM STAFF FORESTER Rosy Muñoz NP LAB MICROBIOLOGY - GENERAL ORDERABLES Final Result Performing Organization Address [facility] Co de Phone Number [facility] [address] [place] [address] * (ABNORMAL) POCT glucose (05/26/2021 1:19 PM STAFF FORESTER) [facility] Glucose, POC 237(H) 70 - 199 mg/dL [facility] Blood 05/26/2021 1:19 PM STAFF FORESTER 05/26/2021 1:19 PM STAFF FORESTER Rhina Granados MD LAB POCT ORDERABLES - DEVICE Final Result Performing Organization Address [facility] Co de Phone Number [facility] DON [address] [place] [address] * (ABNORMAL) Pneumonia PCR Sputum Lung (05/26/2021 11:32 AM STAFF FORESTER) [facility] C. pneumoniae DNA Not Detected Not Detected [facility] DON Comment:Testing performed by : [facility], [address] [facility], [place]., [address] Legionella pneumophila DNA Not Detected Not Detected [facility] Comment:Testing performed by : [facility], [address] [facility], [address] M. pneumoniae DNA Not Detected Not Detected [facility]ER Comment:Testing performed by : [facility], [address] [facility], [address] Adenovirus DNA Not Detected Not Detected [facility] Comment:Testing performed by : [facility], [address] [facility], [address] Coronavirus (229E, OC43, HKU1, NL63) RNA Not Detected Not Detected [facility] Comment:Testing performed by : [facility], [address] [facility], [address] Metapneumovirus RNA Not Detected Not Detected C[facility]ER Comment:Testing performed by : [facility], [address] [place] [address], [address] Rhinovirus/Enterov irus RNA Detected(A) Not Detected [facility] Comment:Testing performed by : [facility], [address] [place] [address], [address] Influenza A RNA Not Detected Not Detected [facility] Comment:Testing performed by : [facility], [address] [place] [address], [address] Influenza B RNA Not Detected Not Detected [facility] Comment:Testing performed by : [facility], [address] [place] [address], [address] Parainfluenza virus (1-4) RNA Not Detected Not Detected [facility] Comment:Testing performed by : [facility], [address] [place] [address], [address] RSV RNA Not Detected Not Detected [facility]ER Comment:Testing performed by : [facility], [address] [place] [address], [address] Sputum (Lung) 05/26/2021 11: 32 AM STAFF FORESTER 05/26/2021 4:04 PM STAFF FORESTER Narrative [facility]ER - 05/26/2021 5:33 PM STAFF FORESTER The [employer] Pneumonia Panel is a multiplexed nucleic acid test capable of simultaneous detection and identification of multiple respiratory viruses and bacteria. ??This panel detects Adenovirus, coronaviruses (Coronavirus HKU1, Coronavirus NL63, Coronavirus 229E, and Coronavirus OC43), Influenza A, Influenza B, Human metapneumovirus, Parainfluenza (1-4), RSV, Rhinovirus/Enterovirus, Chlamydia pneumoniae, Mycoplasma pneumoniae, and Legionella pneumophila. Additional aerobic bacterial targets are reported with the accompanying culture results with the same accession number. Rhinovirus and Enterovirus are genetically similar and cannot be reliably differentiated with this method. Negative adenovirus results should be confirmed by an alternative methodology (i.e. standalone PCR) if the suspicion for adenovirus infection is high. ??The results of this test must be considered in the clinical context of the patient and should not be used as the sole basis for diagnosis, treatment, or other management decisions. ??Negative results in the setting of a respiratory illness may be due to infection with pathogens that are not detected by this test. ??Positive results do not rule out infection/co-infection with other organisms. The [employer] Pneumonia Panel is FDA cleared for lower respiratory tract specimens. The performance characteristics of this assay have been determined by [facility]. Current interpretive data was last revised on 2021. Rosy Muñoz NP LAB MICROBIOLOGY - GENERAL ORDERABLES Final Result [facility] [place] [address] Department [place] [address] * (ABNORMAL) Pneumonia PCR with aerobic culture and Gram stain Sputum Lung (05/26/2021 11:32 AM STAFF FORESTER) Direct Specimen Exam Molecular Analysis: Greater than or equal to 10^7 copies/mL Moraxella catarrhalis 10^5 copies/mL Haemophilus influenzae 10^4 copies/mL Staphylococcus aureus Methicillin resistant Staphylococcus aureus (MRSA) detected by molecular analysis. Correlation of molecular analysis with final culture results is recommended. [facility] DON Comment:Testing performed by : [facility], [address] [place]., [address] Direct Specimen Exam Stain: Few polymorphonuclear leukocytes seen. Few squamous epithelial cells seen. Abundant mixed bacterial tirso seen on Gram stain. [facility] Comment:Testing performed by : [facility], [address] [place]., [address] Report Final Report: Growth indicates upper respiratory tirso. (.) [facility] Comment:Testing performed by : [facility], [address] [place]., [address] Organism GROWTH INDICATES UPPER RESPIRATORY TIRSO. [facility] Sputum (Lung) 05/26/2021 11: 32 AM STAFF FORESTER 05/26/2021 3:21 PM STAFF FORESTER Narrative [facility] - 05/29/2021 1:52 PM STAFF FORESTER When rapid molecular testing results are reported, testing completed using the [employer] Pneumonia Panel. ??This molecular assay detects: Acinetobacter calcoaceticus-baumannii complex, Enterobacter cloacae complex, Escherichia coli, Haemophilus influenzae, Enterobacter (Klebsiella) aerogenes, ??Klebsiella oxytoca, Klebsiella pneumoniae group, Moraxella catarrhalis, Proteus spp., Pseudomonas aeruginosa, Serratia marcescens, Staphylococcus aureus, Streptococcus agalactiae, Streptococcus pneumoniae, and Streptococcus pyogenes. ?? These bacteria are detected and reported semi-quantitatively with bins representing approximately 10^4, 10^5, 10^6, or greater than or equal to 10^7 genomic copies of bacterial nucleic acid per mL (copies/mL) of specimen. ??These quantities are reported to aid in estimating the relative abundance of organism(s) detected within the specimen and to correlate these results with culture results. ?? For Staphylococcus aureus, mecA/C and MREJ genes are evaluated to predict methicillin resistance or susceptibility. ??For Gram-negative bacteria, the beta-lactamases CTX-M, IMP, KPC, NDM, VIM and OXA-48-like are evaluated and reported if detected. ??For Gram-negative organisms, the absence of detection of resistance markers does not exclude resistance. ?? Correlation with final culture results and susceptibility testing is recommended. The [employer] Pneumonia Panel is cleared by the [place] Food and Drug Administration and its performance characteristics have been confirmed by the [facility]. ??The performance of the [employer] Pneumonia Panel has not been established for monitoring treatment of infection and bacterial nucleic acids may persist independent of organism viability. us Reneesandra Muñoz NP LAB MICROBIOLOGY - GENERAL ORDERABLES Final Result Performing Organization Address [facility] de Phone Number [facility] [address] [facility] [place] [address] * POCT glucose (05/26/2021 8:42 AM STAFF FORESTER) Glucose, POC 95 70 - 199 mg/dL [facility] Blood 05/26/2021 8:42 AM STAFF FORESTER 05/26/2021 8:42 AM STAFF FORESTER Rhina Granados MD LAB POCT ORDERABLES - DEVICE Final Result Performing Organization Address [facility] de Phone Number [facility] [address] [place] [address] * POCT glucose (05/26/2021 6:32 AM STAFF FORESTER) Glucose, POC 74 70 - 199 mg/dL [facility] Blood 05/26/2021 6:32 AM STAFF FORESTER 05/26/2021 6:32 AM STAFF FORESTER Rhina Granados MD LAB POCT ORDERABLES - DEVICE Final Result Performing Organization Address [facility] de Phone Number [facility] [address] [place] [place] [address] * eGFR (05/26/2021 6:23 AM STAFF FORESTER) eGFR 121 mL/min/1.7 3 m2 [facility] Comment: Interpretive Data Reference Interval Normal ?>/= 90 mL/min/1.73m2 Mildly decreased* ? 60 - 89 mL/min/1.73m2 Mildly to moderately decreased ?45 - 59 mL/min/1.73m2 Moderately to severely decreased ??30 - 44 mL/min/1.73m2 Severely decreased ?15 - 29 mL/min/1.73m2 Kidney Failure ?< 15 ??mL/min/1.73m2 *Relative to young adult level Estimated glomerular filtration rate is determined by the CKD-EPI equation recommended by the National Kidney Foundation (KDIGO 2012 Clinical Practice Guideline for the Evaluation and Management of Chronic Kidney Disease. Kidney Intnl Suppl Jun 2012;3:1). The CKD-EPI equation should not be used for patients with unstable renal function and has not been validated in children and those over 70. Current interpretive data was last reviewed 2020 Blood 05/26/2021 6:23 AM STAFF FORESTER 05/26/2021 7:00 AM STAFF FORESTER Silviano Huddleston NP LAB BLOOD ORDERABLES Final Result Performing Organization Address [facility] Co de Phone Number [facility] [address] [place] [address] * (ABNORMAL) CRP (acute phase) (05/26/2021 6:23 AM STAFF FORESTER) CRP 16.0(H) <=10.0 mg/L [facility] Blood 05/26/2021 6:23 AM STAFF FORESTER 05/26/2021 6:48 AM STAFF FORESTER Frank Dugan MD LAB BLOOD ORDERABLES Final R esult Performing Organization Address City/[facility]/ZIP Co de Phone Number [facility] DON [address] [place] [address] * (ABNORMAL) D-dimer, quantitative (05/26/2021 6:23 AM STAFF FORESTER) D-Dimer 3,194(H) <=499 ng/mL [facility] Comment: Interpretive data FDA approved the D-dimer, in conjunction with a low or moderate pretest probability score, to exclude venous thromboembolic events (VTE) (PE and DVT) in outpatients when the D-dimer result is < 500 ng/ml FEU. ?? Evidence supports using an age-adjusted D-dimer cut-off for outpatients older than 50 (age x 10) to improve specificity without sacrificing sensitivity. Example: age 68, VTE cut-off 680 ng/ml FEU. References; Jayda HT et al. Brit Med J. 2013;346:f2492. Mando et al. Annals Int Med. 2015;163:701-11. Current interpretive data was last revised on 2019. Blood 05/26/2021 6:23 AM STAFF FORESTER 05/26/2021 6:49 AM STAFF FORESTER Frank Dugan MD LAB BLOOD ORDERABLES Final R esult [facility] [address] [place] [address] * (ABNORMAL) Basic metabolic panel (05/26/2021 6:23 AM STAFF FORESTER) Sodium 136 135 - 145 mmol/L [facility] Potassium, pl 4.4 3.3 - 4.9 mmol/L [facility] Chloride 101 97 - 110 mmol/L [facility] CH CO2 22 22 - 32 mmol/L [facility] CH Anion gap 13 2 - 15 mmol/L [facility] BUN 22 8 - 25 mg/dL [facility] Creatinine 0.48(L) 0.80 - 1.30 mg/dL [facility] Glucose 77 70 - 199 mg/dL [facility] Comment: Interpretive Data Fasting glucose >/= 126 [...] interpretive data was last revised 2017. Calcium 9.1 8.5 - 10.3 mg/dL [facility] CH Blood 05/26/2021 6:23 AM STAFF FORESTER 05/26/2021 6:48 AM STAFF FORESTER Silviano Huddleston ESCROW CLERK LAB BLOOD ORDERABLES Final Result [facility] [address] [place] [address] * (ABNORMAL) CBC without differential (05/26/2021 6:23 AM STAFF FORESTER) WBC 14.0(H) 3.8 - 9.9 K/cumm [facility] CH Hgb 10.7(L) 13.0 - 17.5 g/dL [facility] Hct 32.6(L) 38.9 - 50.3 % [facility] CH Plt 535(H) 150 - 400 K/cumm [facility] CH MPV 11.6 9.1 - 12.3 fL [facility] CH RBC 3.56(L) 4.30 - 5.80 M/cumm [facility] CH MCV 91.6 81.3 - 96.4 fL [facility] CH MCH 30.1 27.1 - 33.3 pg [facility] CH MCHC 32.8 32.3 - 35.7 g/dL [facility] CH RDW CV 13.5 11.1 - 14.9 % [facility] CH RDW SD 44.8 35.7 - 48.1 fL [facility] NRBC abs 0.00 0.00 - 0.01 K/cumm [facility] CH Blood 05/26/2021 6:23 AM STAFF FORESTER 05/26/2021 6:49 AM STAFF FORESTER Silviano Huddleston ESCROW CLERK LAB BLOOD ORDERABLES Final Result [facility] [place] [address] [facility] [place] [address] * Magnesium (05/26/2021 6:23 AM STAFF FORESTER) Magnesium 2.1 1.4 - 2.5 mg/dL [facility] Blood 05/26/2021 6:23 AM STAFF FORESTER 05/26/2021 6:48 AM STAFF FORESTER Silviano Yariel Flaquito ESCROW CLERK LAB BLOOD ORDERABLES Final Result Performing Organization Address City/[facility]/ZIP Co de Phone Number [facility] [address] [place] [address] * Phosphorus (05/26/2021 6:23 AM STAFF FORESTER) Phosphorus, pl 3.7 2.3 - 4.5 mg/dL [facility] Blood 05/26/2021 6:23 AM STAFF FORESTER 05/26/2021 6:48 AM STAFF FORESTER Silviano Huddletson ESCROW CLERK LAB BLOOD ORDERABLES Final Result Performing Organization Address [facility] de Phone Number [facility] DON [address] [place] [address] * XR Chest 1 Vw Portable (05/26/2021 6:07 AM STAFF FORESTER) Anatomical Region Laterality Modality Body, Chest N/A Computed Radiogr aphy 05/26/2021 7:27 AM STAFF FORESTER Impressions 05/26/2021 7:27 AM STAFF FORESTER Decreasing infiltrate left lung. Electronically signed by: Deacon Cummings M.D. Narrative 05/26/2021 7:27 AM STAFF FORESTER EXAMINATION: XR CHEST 1 VIEW DATE: 05/26/2021 5:15 AM HISTORY: Covid pneumonia follow-up, heart disease FINDINGS:Compared with study the previous day, slight improvement in the aeration of the left lung with continued infiltrate. Cardiomegaly with postsurgical changes. Suspect COPD. Procedure Note Deacon Cummings MD - 05/26/2021 EXAMINATION: XR CHEST 1 VIEW DATE: 05/26/2021 5:15 AM HISTORY: Covid pneumonia follow-up, heart disease FINDINGS:Compared with study the previous day, slight improvement in the aeration of the left lung with continued infiltrate. Cardiomegaly with postsurgical changes. Suspect COPD. IMPRESSION: Decreasing infiltrate left lung. Electronically signed by: Worthy Cummings, M.D. us Rhina Granados MD IMG XR PROCEDURES Final Resu lt * POCT glucose (05/25/2021 11:59 PM STAFF FORESTER) Glucose, POC 101 70 - 199 mg/dL [facility] Blood 05/25/2021 11:5 9 PM STAFF FORESTER 05/25/2021 11:59 PM STAFF FORESTER us Rhina Granados MD LAB POCT ORDERABLES - DEVICE Final Result [facility] [address] [place] [address] * Critical Care (05/25/2021 9:14 PM STAFF FORESTER) Narrative Frank Dugan MD - 05/25/2021 9:14 PM STAFF FORESTER Frank Dugan MD ? 05/26/2021 ??1:21 AM Critical Care Performed by: Frank Dugan MD Authorized by: Frank Dugan MD CRITICAL CARE: ??Team: ??CHNE ??Shift: ??PM ??Level of Billing: ??Critical Care ??My time spent with this patient was 30 minutes: Critical Provider Statement: I have seen and examined the patient on this day of service. I have reviewed and confirmed the history, physical exam, laboratory and radiologic data as documented in the signed ICU note. I have reviewed and discussed my treatment plan with the ICU team and other medical/environmental remediation consultant staff, making frequent assessments and decisions regarding this patient's complex medical care. Critical Care time was exclusive of time spent performing separately billed procedures, treating other patients, and teaching. This time was in addition to and separate from critical care provided by other practitioners in my group on this day of service. Critical Care was necessary to treat or prevent imminent or life-threatening deterioration of the following conditions: ? Acute delirium and Acute pain/acute postoperative pain ?? Hypo- or Hyperglycemia, Acid-base disturbance, Acute kidney injury and Acute electrolyte derangement ?? Pneumonia, Sepsis and Leukocytosis ??This time was spent by me doing the following: ? Acute pain control ?? Active and frequent reassessment of respiratory status and oxygen requirements, Non-invasive positive pressure ventilator management, Optiflow support and Frequent bronchodilator treatments ?? Glycemic control and Active and frequent monitoring of intake/output and volumen status ?? Active repletion of electrolytes ?? Obtaining appropriate cultures and Review of prior or current culture/gram stain results ?? I spent time documenting in the medical record, I spent time discussing the management of this critically ill patient with consultants and the medical staff and I spent time reviewing and interpreting data from bedside monitors, laboratory results, and imaging us Frank Dugan MD IN CLINIC/BEDSIDE ORDERABLES Edited Result - Final * POCT glucose (05/25/2021 8:15 PM STAFF FORESTER) Glucose, POC 192 70 - 199 mg/dL [facility] Blood 05/25/2021 8:15 PM STAFF FORESTER 05/25/2021 8:15 PM STAFF FORESTER us Rhina Granados MD LAB POCT ORDERABLES - DEVICE Final Result Performing Organization Address [facility] Co de Phone Number [facility] [address] [facility] [place] [address] * POCT glucose (05/25/2021 5:39 PM STAFF FORESTER) Glucose, POC 134 70 - 199 mg/dL [facility] Blood 05/25/2021 5:39 PM STAFF FORESTER 05/25/2021 5:39 PM STAFF FORESTER Rhina Granados MD LAB POCT ORDERABLES - DEVICE Final Result Performing Organization Address [facility] Co de Phone Number [facility] [address] [facility] [place] [address] * Critical Care (05/25/2021 4:03 PM STAFF FORESTER) Narrative Dominique Wilkinson MD - 05/25/2021 4:03 PM STAFF FORESTER Rosy Muñoz NP ? 05/25/2021 ??8:02 PM Critical Care Performed by: Rosy Muñoz NP Authorized by: Rosy Muñoz NP CRITICAL CARE: ??Team: ??CHNE ??Shift: ??AM ??Level of Billing: ??Critical Care ??My time spent with this patient was 90 minutes: Critical Provider Statement: I have seen and examined the patient on this day of service. I have reviewed and confirmed the history, physical exam, laboratory and radiologic data as documented in the signed ICU note. I have reviewed and discussed my treatment plan with the ICU team and other medical/environmental remediation consultant staff, making frequent assessments and decisions regarding this patient's complex medical care. Critical Care time was exclusive of time spent performing separately billed procedures, treating other patients, and teaching. This time was in addition to and separate from critical care provided by other practitioners in my group on this day of service. Critical Care was necessary to treat or prevent imminent or life-threatening deterioration of the following conditions: ? COVID 19 viral pneumonia Acute hypoxic respiratory failure ??This time was spent by me doing the following: ? Obtaining peripheral venous access or blood draws, Serial bedside patient exams and Serial laboratory checks ?? Frequent neurologic exams ?? Serial neurovascular exams ?? Active and frequent reassessment of respiratory status and oxygen requirements, Non-invasive positive pressure ventilator management, Optiflow support and Incentive spirometry, pulmonary toilet ?? Active and frequent monitoring of intake/output and volumen status, Glycemic control and Serial abdominal exams ?? Review of prior or current culture/gram stain results ?? I spent time reviewing and interpreting data from bedside monitors, laboratory results, and imaging, I spent time discussing the management of this critically ill patient with consultants and the medical staff and I spent time documenting in the medical record Rosy Muñoz NP IN CLINIC/BEDSIDE O RDERABLES Final Result * POCT glucose (05/25/2021 12:23 PM STAFF FORESTER) Glucose, POC 158 70 - 199 mg/dL [facility] Blood 05/25/2021 12:2 3 PM STAFF FORESTER 05/25/2021 12:23 PM STAFF FORESTER us Rhina Granados MD LAB POCT ORDERABLES - DEVICE Final Result [facility] [address] [place] [address] * CT Chest PE (CTA) W Contrast (05/25/2021 10:22 AM STAFF FORESTER) Anatomical Region Laterality Modality Body N/A Computed Tomogra phy 05/25/2021 10:4 2 AM STAFF FORESTER Impressions 05/25/2021 10:42 AM STAFF FORESTER 1. ??No pulmonary embolus. 2. ??Similar diffuse groundglass opacities and consolidation suggestive of multifocal Covid 19 pneumonia 3. ??Severe centrilobular emphysematous changes. 4. ??Prior coronary artery bypass graft. 5. ??Additional chronic or incidental findings as above. Electronically signed by: Richard Lopez II, D.O. Narrative 05/25/2021 10:42 AM STAFF FORESTER Indication: Suspected pulmonary embolus. Comparison: CT of the chest dated 05/19/2021. Technique: Computed Tomographic images were acquired using a Chest Angiographic protocol optimized for pulmonary embolism. Contrast enhanced transaxial images were obtained following the intravenous administration of 100 ml of nonionic contrast. Multiplanar reformatted images and three-dimensional images were obtained on the 3-D workstation and sent to the PACS archival system. Findings: Diffuse bilateral groundglass opacities and consolidations are demonstrated bilaterally with relatively similar appearance to most recent prior. ??Severe centrilobular emphysematous changes are redemonstrated. ??There is no pleural effusion. No pulmonary embolus is demonstrated. ??There is no evidence of right heart strain. Aorta is normal in caliber. ??No evidence of dissection. Thoracic inlet structures are normal in appearance. ??Postoperative findings consistent with coronary artery bypass graft noted. ??There is a minimal pericardial effusion. No acute osseous abnormality is demonstrated. ??No suspicious lytic or sclerotic lesions. Procedure Note Richard Lopez II, DO - 05/25/2021 Indication: Suspected pulmonary embolus. Comparison: CT of the chest dated 05/19/2021. Technique: Computed Tomographic images were acquired using a Chest Angiographic protocol optimized for pulmonary embolism. Contrast enhanced transaxial images were obtained following the intravenous administration of 100 ml of nonionic contrast. Multiplanar reformatted images and three-dimensional images were obtained on the 3-D workstation and sent to the PACS archival system. Findings: Diffuse bilateral groundglass opacities and consolidations are demonstrated bilaterally with relatively similar appearance to most recent prior. Severe centrilobular emphysematous changes are redemonstrated. There is no pleural effusion. No pulmonary embolus is demonstrated. There is no evidence of right heart strain. Aorta is normal in caliber. No evidence of dissection. Thoracic inlet structures are normal in appearance. Postoperative findings consistent with coronary artery bypass graft noted. There is a minimal pericardial effusion. No acute osseous abnormality is demonstrated. No suspicious lytic or sclerotic lesions. IMPRESSION: 1. No pulmonary embolus. 2. Similar diffuse groundglass opacities and consolidation suggestive of multifocal Covid 19 pneumonia 3. Severe centrilobular emphysematous changes. 4. Prior coronary artery bypass graft. 5. Additional chronic or incidental findings as above. Electronically signed by: Richard Lopez II, D.O. Rosy Muñoz NP IMG CT PROCEDURES F inal Result * (ABNORMAL) Blood gas, arterial (05/25/2021 9:51 AM STAFF FORESTER) pH, Art 7.47(H) 7.35 - 7.45 [facility] PCO2, Arterial 32(L) 35 - 45 mmHg [facility] PO2, Arterial 72(L) 83 - 108 mmHg [facility] HCO3 Art (Calculated) 24 20 - 30 mmol/L [facility] BE, art 0 mmol/L [facility] Comment: Interpretive Data No Reference Range Established Current Interpretive Data was last revised on 2017 O2 Sat Art (Measured) 95 90 - 95 % [facility] Blood 05/25/2021 9:51 AM STAFF FORESTER 05/25/2021 9:56 AM STAFF FORESTER Rosy Muñoz NP LAB BLOOD [place] [address] [address] [place] [address] * POCT glucose (05/25/2021 9:20 AM STAFF FORESTER) Glucose, POC 97 70 - 199 mg/dL [facility] Blood 05/25/2021 9:20 AM STAFF FORESTER 05/25/2021 9:20 AM STAFF FORESTER us Rhina Granados MD LAB POCT ORDERABLES - DEVICE Final Result [facility] [address] [facility] [place] [address] * XR Chest 1 Vw Portable (05/25/2021 6:25 AM STAFF FORESTER) Anatomical Region Laterality Modality Body, Chest N/A Computed Radiogr aphy 05/25/2021 7:59 AM STAFF FORESTER Impressions 05/25/2021 7:59 AM STAFF FORESTER Worsening pneumonic changes in the left lung. Electronically signed by: Deacon Cummings M.D. Narrative 05/25/2021 7:59 AM STAFF FORESTER EXAMINATION: XR CHEST 1 VIEW DATE: 05/25/2021 [...] lung. Electronically signed by: Deacon Cummings M.D. us Rhina Granados MD IMG XR PROCEDURES Final Resu lt * eGFR (05/25/2021 3:00 AM STAFF FORESTER) eGFR 112 mL/min/1.7 3 m2 [facility] Comment: Interpretive Data Reference Interval Normal ?>/= 90 mL/min/1.73m2 Mildly decreased* ? 60 - 89 mL/min/1.73m2 Mildly to moderately decreased ?45 - 59 mL/min/1.73m2 Moderately to severely decreased ??30 - 44 mL/min/1.73m2 Severely decreased ?15 - 29 mL/min/1.73m2 Kidney Failure ?< 15 ??mL/min/1.73m2 *Relative to young adult level Estimated glomerular filtration rate is determined by the CKD-EPI equation recommended by the National Kidney Foundation (KDIGO 2012 Clinical Practice Guideline for the Evaluation and Management of Chronic Kidney Disease. Kidney Intnl Suppl Jun 2012;3:1). The CKD-EPI equation should not be used for patients with unstable renal function and has not been validated in children and those over 70. Current interpretive data was last reviewed 2020 Blood 05/25/2021 3:00 AM STAFF FORESTER 05/25/2021 3:26 AM STAFF FORESTER Silviano Huddleston ESCROW CLERK LAB BLOOD ORDERABLES Final Result [facility] [address] Department [place] [address] * (ABNORMAL) Basic metabolic panel (05/25/2021 3:00 AM STAFF FORESTER) Sodium 132(L) 135 - 145 mmol/L [facility] Potassium, pl 4.2 3.3 - 4.9 mmol/L [facility] Chloride 96(L) 97 - 110 mmol/L [facility] CO2 23 22 - 32 mmol/L [facility] Anion gap 13 2 - 15 mmol/L [facility] BUN 24 8 - 25 mg/dL [facility] Creatinine 0.58(L) 0.80 - 1.30 mg/dL [facility] Glucose 222(H) 70 - 199 mg/dL [facility] Comment: Interpretive Data Fasting glucose >/= 126 [...] interpretive data was last revised 2017. Calcium 9.0 8.5 - 10.3 mg/dL [facility] Blood 05/25/2021 3:00 AM STAFF FORESTER 05/25/2021 3:26 AM STAFF FORESTER Silviano Huddleston ESCROW CLERK LAB BLOOD ORDERABLES Final Result [facility] [address] [place] [address] * (ABNORMAL) CBC without differential (05/25/2021 3:00 AM STAFF FORESTER) WBC 11.2(H) 3.8 - 9.9 K/cumm [facility] Hgb 10.0(L) 13.0 - 17.5 g/dL [facility] Hct 31.6(L) 38.9 - 50.3 % [facility] Plt 459(H) 150 - 400 K/cumm [facility] MPV 11.7 9.1 - 12.3 fL [facility] RBC 3.46(L) 4.30 - 5.80 M/cumm [facility] MCV 91.3 81.3 - 96.4 fL [facility] MCH 28.9 27.1 - 33.3 pg [facility] MCHC 31.6(L) 32.3 - 35.7 g/dL [facility] RDW CV 13.2 11.1 - 14.9 % [facility] RDW SD 44.2 35.7 - 48.1 fL [facility] NRBC abs 0.00 0.00 - 0.01 K/cumm [facility] Blood 05/25/2021 3:00 AM STAFF FORESTER 05/25/2021 3:25 AM STAFF FORESTER Silviano Huddleston ESCROW CLERK LAB BLOOD ORDERABLES Final Result Performing Organization Address [facility] de Phone Number [facility] [address] [address] [facility] [place] [address] * Magnesium (05/25/2021 3:00 AM STAFF FORESTER) Magnesium 1.7 1.4 - 2.5 mg/dL [facility] Blood 05/25/2021 3:00 AM STAFF FORESTER 05/25/2021 3:26 AM STAFF FORESTER Silviano Huddleston ESCROW CLERK LAB BLOOD ORDERABLES Final Result Performing Organization Address [facility] de Phone Number [facility] [address] [place] [address] * Phosphorus (05/25/2021 3:00 AM STAFF FORESTER) Phosphorus, pl 3.0 2.3 - 4.5 mg/dL [facility] Blood 05/25/2021 3:00 AM STAFF FORESTER 05/25/2021 3:26 AM STAFF FORESTER Silviano Huddleston ESCROW CLERK LAB BLOOD ORDERABLES Final Result Performing Organization Address [facility] de Phone Number [facility] [address] [address] [facility] [place] [address] * Critical Care (05/24/2021 11:38 PM STAFF FORESTER) Narrative Frank Dugan MD - 05/24/2021 11:38 PM STAFF FORESTER Frank Dugan MD ? 05/24/2021 11:44 PM Critical Care Performed by: Frank Dugan MD Authorized by: Frank Dugan MD CRITICAL CARE: ??Team: ??CHNE ??Shift: ??PM ??Level of Billing: ??Critical Care ??My time spent with this patient was 30 minutes: Critical Provider Statement: I have seen and examined the patient on this day of service. I have reviewed and confirmed the history, physical exam, laboratory and radiologic data as documented in the signed ICU note. I have reviewed and discussed my treatment plan with the ICU team and other medical/environmental remediation consultant staff, making frequent assessments and decisions regarding this patient's complex medical care. Critical Care time was exclusive of time spent performing separately billed procedures, treating other patients, and teaching. This time was in addition to and separate from critical care provided by other practitioners in my group on this day of service. Critical Care was necessary to treat or prevent imminent or life-threatening deterioration of the following conditions: ? Acute hypoxic respiratory failure ?? Hypo- or Hyperglycemia ?? Sepsis, Pneumonia and Leukocytosis ??This time was spent by me doing the following: ? Acute pain control ?? Active and frequent reassessment of respiratory status and oxygen requirements, Incentive spirometry, pulmonary toilet, Frequent bronchodilator treatments, Non-invasive positive pressure ventilator management and Optiflow support ?? Active and frequent monitoring of intake/output and volumen status and Glycemic control ?? Active repletion of electrolytes ?? Review of prior or current culture/gram stain results and Obtaining appropriate cultures ?? I spent time documenting in the medical record us Frank Dugan MD IN CLINIC/BEDSIDE ORDERABLES Final Result * POCT glucose (05/24/2021 11:31 PM STAFF FORESTER) [facility] Signature Glucose, POC 135 70 - 199 mg/dL [facility] Blood 05/24/2021 11:3 1 PM STAFF FORESTER 05/24/2021 11:31 PM STAFF FORESTER us Rhina Granados MD LAB POCT ORDERABLES - DEVICE Final Result [facility] [address] [place] [address] * POCT glucose (05/24/2021 7:52 PM STAFF FORESTER) Glucose, POC 179 70 - 199 mg/dL [facility] Blood 05/24/2021 7:52 PM STAFF FORESTER 05/24/2021 7:52 PM STAFF FORESTER Rhina Granados MD LAB POCT ORDERABLES - DEVICE Final Result Performing Organization Address [facility] de Phone Number [facility] [address] [place] [address] * POCT glucose (05/24/2021 5:04 PM STAFF FORESTER) Glucose, POC 164 70 - 199 mg/dL [facility] Blood 05/24/2021 5:04 PM STAFF FORESTER 05/24/2021 5:04 PM STAFF FORESTER Rhina Granados MD LAB POCT ORDERABLES - DEVICE Final Result Performing Organization Address [facility] Phone Number [facility] [address] [address] [facility] [place] [address] * Critical Care (05/24/2021 1:50 PM STAFF FORESTER) Narrative Dominique Wilkinson MD - 05/24/2021 1:50 PM STAFF FORESTER Silviano Huddleston NP ? 05/24/2021 ??5:31 PM Critical Care Performed by: Silviano Huddleston NP Authorized by: Silviano Huddleston NP CRITICAL CARE: ??Team: ??CHNE ??Shift: ??AM ??Level of Billing: ??Critical Care ??My time spent with this patient was 95 minutes: Critical Provider Statement: I have seen and examined the patient on this day of service. I have reviewed and confirmed the history, physical exam, laboratory and radiologic data as documented in the signed ICU note. I have reviewed and discussed my treatment plan with the ICU team and other medical/environmental remediation consultant staff, making frequent assessments and decisions regarding this patient's complex medical care. Critical Care time was exclusive of time spent performing separately billed procedures, treating other patients, and teaching. This time was in addition to and separate from critical care provided by other practitioners in my group on this day of service. Critical Care was necessary to treat or prevent imminent or life-threatening deterioration of the following conditions: ? Acute hypoxic respiratory failure ?? Leukocytosis and Pneumonia ??This time was spent by me doing the following: ? Obtaining peripheral venous access or blood draws ?? Active and frequent reassessment of respiratory status and oxygen requirements and Optiflow support ?? Active and frequent monitoring of intake/output and volumen status ?? Review of prior or current culture/gram stain results ?? I spent time reviewing and interpreting data from bedside monitors, laboratory results, and imaging, I spent time discussing the management of this critically ill patient with consultants and the medical staff and I spent time documenting in the medical record us Silviano Huddleston NP IN CLINIC/BEDSIDE ORDERABL ES Final Result * POCT glucose (05/24/2021 12:18 PM STAFF FORESTER) Glucose, POC 157 70 - 199 mg/dL [facility] 05/24/2021 12:1 8 PM STAFF FORESTER 05/24/2021 12:18 PM STAFF FORESTER us Rhina Granados MD LAB POCT ORDERABLES - DEVICE Final Result Performing Organization Address [facility] Co de Phone Number [facility] [address] [place] [address] * POCT glucose (05/24/2021 8:51 AM STAFF FORESTER) Glucose, POC 109 70 - 199 mg/dL [facility] Blood 05/24/2021 8:51 AM STAFF FORESTER 05/24/2021 8:51 AM STAFF FORESTER Rhina Granados MD LAB POCT ORDERABLES - DEVICE Final Result Performing Organization Address [facility] Co de Phone Number [facility] [address] [place] [address] * XR Chest 1 Vw Portable (05/24/2021 6:58 AM STAFF FORESTER) Anatomical Region Laterality Modality Body, Chest N/A Computed Radiogr aphy 05/24/2021 9:37 AM STAFF FORESTER Impressions 05/24/2021 9:37 AM STAFF FORESTER Persistent bilateral ill-defined alveolar infiltrate unchanged. Electronically signed by: Joie Bernardo M.D. Narrative 05/24/2021 9:37 AM STAFF FORESTER Examination: XR CHEST 1 VIEW Date: 05/24/2021 [...] unchanged. Electronically signed by: Joie Bernardo M.D. Rhina Granados MD IMG XR PROCEDURES Final Resu lt * POCT glucose (05/24/2021 6:46 AM STAFF FORESTER) Pathologist [facility] Glucose, POC 119 70 - 199 mg/dL [facility] Blood 05/24/2021 6:46 AM STAFF FORESTER 05/24/2021 6:46 AM STAFF FORESTER us Rhina Granados MD LAB POCT ORDERABLES - DEVICE Final Result [facility] [address] [place] [address] * eGFR (05/24/2021 3:48 AM STAFF FORESTER) eGFR 110 mL/min/1.7 3 m2 [facility] Comment: Interpretive Data Reference Interval Normal ?>/= 90 mL/min/1.73m2 Mildly decreased* ? 60 - 89 mL/min/1.73m2 Mildly to moderately decreased ?45 - 59 mL/min/1.73m2 Moderately to severely decreased ??30 - 44 mL/min/1.73m2 Severely decreased ?15 - 29 mL/min/1.73m2 Kidney Failure ?< 15 ??mL/min/1.73m2 *Relative to young adult level Estimated glomerular filtration rate is determined by the CKD-EPI equation recommended by the National Kidney Foundation (KDIGO 2012 Clinical Practice Guideline for the Evaluation and Management of Chronic Kidney Disease. Kidney Intnl Suppl Jun 2012;3:1). The CKD-EPI equation should not be used for patients with unstable renal function and has not been validated in children and those over 70. Current interpretive data was last reviewed 2020 Blood 05/24/2021 3:48 AM STAFF FORESTER 05/24/2021 4:17 AM STAFF FORESTER us Silviano Huddleston ESCROW CLERK LAB BLOOD ORDERABLES Final Result [facility] [address] [place] [address] * (ABNORMAL) Basic metabolic panel (05/24/2021 3:48 AM STAFF FORESTER) Pathologist [facility] Sodium 133(L) 135 - 145 mmol/L [facility] Potassium, pl 4.3 3.3 - 4.9 mmol/L [facility] Chloride 96(L) 97 - 110 mmol/L [facility] CO2 24 22 - 32 mmol/L [facility] Anion gap 13 2 - 15 mmol/L [facility] BUN 23 8 - 25 mg/dL [facility] Creatinine 0.60(L) 0.80 - 1.30 mg/dL [facility] Glucose 142 70 - 199 mg/dL [facility] Comment: Interpretive Data Fasting glucose >/= 126 [...] 2017. Calcium 8.8 8.5 - 10.3 mg/dL [facility] Blood 05/24/2021 3:48 AM STAFF FORESTER 05/24/2021 4:17 AM STAFF FORESTER Silviano Huddleston ESCROW CLERK LAB BLOOD ORDERABLES Final Result [facility] [address] [place] [address] * (ABNORMAL) CBC without differential (05/24/2021 3:48 AM STAFF FORESTER) WBC 10.7(H) 3.8 - 9.9 K/cumm [facility] Hgb 9.6(L) 13.0 - 17.5 g/dL [facility] Hct 29.5(L) 38.9 - 50.3 % [facility] Plt 457(H) 150 - 400 K/cumm [facility] MPV 11.6 9.1 - 12.3 fL [facility] RBC 3.24(L) 4.30 - 5.80 M/cumm [facility] MCV 91.0 81.3 - 96.4 fL [facility] MCH 29.6 27.1 - 33.3 pg [facility] MCHC 32.5 32.3 - 35.7 g/dL [facility] RDW CV 13.2 11.1 - 14.9 % [facility] RDW SD 43.6 35.7 - 48.1 fL [facility] NRBC abs 0.00 0.00 - 0.01 K/cumm [facility] Blood 05/24/2021 3:48 AM STAFF FORESTER 05/24/2021 4:17 AM STAFF FORESTER Silviano Huddleston ESCROW CLERK LAB BLOOD ORDERABLES Final Result Performing Organization Address [facility] Center/ZIP Co de Phone Number [facility] [address] [facility] [place] [address] * Magnesium (05/24/2021 3:48 AM STAFF FORESTER) Magnesium 2.1 1.4 - 2.5 mg/dL [facility] Blood 05/24/2021 3:48 AM STAFF FORESTER 05/24/2021 4:17 AM STAFF FORESTER Silviano Huddleston ESCROW CLERK LAB BLOOD ORDERABLES Final Result Performing Organization Address [facility] de Phone Number [facility] [address] [facility] [place] [address] * Phosphorus (05/24/2021 3:48 AM STAFF FORESTER) Phosphorus, pl 3.3 2.3 - 4.5 mg/dL [facility] Blood 05/24/2021 3:48 AM STAFF FORESTER 05/24/2021 4:17 AM STAFF FORESTER Silviano Huddleston ESCROW CLERK LAB BLOOD ORDERABLES Final Result Performing Organization Address [facility] Co de Phone Number [facility] [address] [facility] [place] [address] * Vitamin B12 (05/24/2021 3:48 AM STAFF FORESTER) Vitamin B12 879 230 - 1,250 pg/mL [facility] Blood 05/24/2021 3:48 AM STAFF FORESTER 05/24/2021 4:17 AM STAFF FORESTER Stephne Melgar MD LAB BLOOD ORDERABLES Final Resu lt [facility] [address] [place] [address] * (ABNORMAL) Iron profile w/ IBC (05/24/2021 3:48 AM STAFF FORESTER) Iron 26(L) 50 - 150 mcg/dl [facility] TIBC 174(L) 250 - 400 mcg/dL [facility] Transferrin saturation 15(L) 20 - 50 % [facility] Blood 05/24/2021 3:48 AM STAFF FORESTER 05/24/2021 4:17 AM STAFF FORESTER us Stephen Melgar MD LAB BLOOD ORDERABLES Final Resu lt [facility] [address] [place] [address] * Hepatitis panel, acute (05/24/2021 3:48 AM STAFF FORESTER) Pathologist [facility] Hep A IgM Nonreactive Nonreactive [facility] Comment: Interpretive Data: If Hep A IgM Ab is reported as Equivocal, a new sample should be drawn in two weeks for testing. Current interpretive data was last revised on 19. Hep B core IgM Nonreactive Nonreactive [facility] Comment: Interpretive Data If HepB Core IgM Ab is reported as Equivocal, a new sample should be drawn in two weeks for testing. Current interpretive data was last revised on 19. Hep C Ab Nonreactive Nonreactive [facility] Comment: Interpretive Data Nonreactive: Antibodies to HCV [...] last revised on 2019. HepBsAg Nonreactive Nonreactive [facility] Blood 05/24/2021 3:48 AM STAFF FORESTER 05/24/2021 4:16 AM STAFF FORESTER Stephen Melgar MD LAB MICROBIOLOGY - GENERAL ORDE RABLES Final Result Performing Organization Address [facility] de Phone Number [facility] [address] [facility] [place] [address] * Folate (05/24/2021 3:48 AM STAFF FORESTER) Folic acid 10.2 >=5.0 ng/mL [facility] Comment:Hemolysis present. R esults may be affected. Blood 05/24/2021 3:48 AM STAFF FORESTER 05/24/2021 4:17 AM STAFF FORESTER Stephen Melgar MD LAB BLOOD ORDERABLES Final Resu lt Performing Organization Address [facility] de Phone Number [facility] [address] [facility] [place] [address] * (ABNORMAL) Ferritin (05/24/2021 3:48 AM STAFF FORESTER) Ferritin 1,861(H) 30 - 400 ng/mL [facility] Blood 05/24/2021 3:48 AM STAFF FORESTER 05/24/2021 4:17 AM STAFF FORESTER Stephen Melgar MD LAB BLOOD ORDERABLES Final Resu lt Performing Organization Address [facility] de Phone Number [facility] [address] [facility] [place] [address] * (ABNORMAL) Lipid panel (05/24/2021 3:48 AM STAFF FORESTER) Cholesterol 131 30 - 199 mg/dL [facility] Comment: Interpretive Data Ages < or = [...] Data was last revised on 2018. Triglycerides 133 <=149 mg/dL [facility] Comment: Interpretive Data Ages < or = [...] Data was last revised on 2018. HDL 31(L) >=40 mg/dL [facility] Comment: Interpretive Data Ages < or = [...] was last revised on 2018. LDL, calculated 73 <=129 mg/dL [facility] Comment: Interpretive Data Ages < or = [...] was last revised on 2018. Non-HDL Cholesterol 100 mg/dL [facility] Comment: Interpretive Data Ages < or = [...] last revised on 2018. Chol/HDL ratio 4 [facility] Blood 05/24/2021 3:48 AM STAFF FORESTER 05/24/2021 4:17 AM STAFF FORESTER us Stephen Melgar MD LAB BLOOD ORDERABLES Final Resu lt [facility] [address] [facility] [place] [address] * (ABNORMAL) Vitamin D 25 hydroxy (05/24/2021 3:48 AM STAFF FORESTER) Vitamin D 25-OH 10(L) 30 - 80 ng/mL [facility] Blood 05/24/2021 3:48 AM STAFF FORESTER 05/24/2021 4:16 AM STAFF FORESTER Stephen Melgar MD LAB BLOOD ORDERABLES Final Resu lt Performing Organization Address [facility] de Phone Number [facility] [address] [facility] [place] [address] * Albumin Creatinine Ratio, Urine (05/24/2021 3:48 AM STAFF FORESTER) [facility] Albumin Ur <12.0 mg/L [facility] Comment: Interpretive Data No reference range established. Current interpretive data was last revised 2018. Creatinine Ur 55.2 mg/dL [facility] Comment: Interpretive Data No reference range established. Current interpretive data was last revised 2018. Albumin Creatinine Ratio, Ur <22 1 - 29 mg/g [facility] Urine 05/24/2021 3:48 AM STAFF FORESTER 05/24/2021 4:21 AM STAFF FORESTER Stephen Melgar MD LAB URINE ORDERABLES Final Resu lt Performing Organization Address [facility] de Phone Number [facility] [address] [facility] [place] [address] * POCT glucose (05/23/2021 11:21 PM STAFF FORESTER) [facility] Glucose, POC 179 70 - 199 mg/dL [facility] Blood 05/23/2021 11:2 1 PM STAFF FORESTER 05/23/2021 11:21 PM STAFF FORESTER Result [facility] Rhina Granados MD LAB POCT ORDERABLES - DEVICE Final Result Performing Organization Address [facility] Co de Phone Number [facility] [address] [facility] [place] [address] * POCT glucose (05/23/2021 9:11 PM STAFF FORESTER) Glucose, POC 162 70 - 199 mg/dL [facility] Blood 05/23/2021 9:11 PM STAFF FORESTER 05/23/2021 9:11 PM STAFF FORESTER us Rhina Granados MD LAB POCT ORDERABLES - DEVICE Final Result [facility] [address] [facility] [place] [address] * Critical Care (05/23/2021 8:57 PM STAFF FORESTER) Narrative Frank Dugan MD - 05/23/2021 8:57 PM STAFF FORESTER Frank Dugan MD ? 05/24/2021 ??2:00 AM Critical Care Performed by: Frank Dugan MD Authorized by: Frank Dugan MD CRITICAL CARE: ??Team: ??CHNE ??Shift: ??PM ??Level of Billing: ??Critical Care ??My time spent with this patient was 35 minutes: Critical Provider Statement: I have seen and examined the patient on this day of service. I have reviewed and confirmed the history, physical exam, laboratory and radiologic data as documented in the signed ICU note. I have reviewed and discussed my treatment plan with the ICU team and other medical/environmental remediation consultant staff, making frequent assessments and decisions regarding this patient's complex medical care. Critical Care time was exclusive of time spent performing separately billed procedures, treating other patients, and teaching. This time was in addition to and separate from critical care provided by other practitioners in my group on this day of service. Critical Care was necessary to treat or prevent imminent or life-threatening deterioration of the following conditions: ? Acute hypercarbic respiratory failure, Acute hypoxic respiratory failure and Acute Respiratory Distress Syndrome (ARDS) ?? Hypo- or Hyperglycemia ?? Leukocytosis, Pneumonia and Sepsis ??This time was spent by me doing the following: ? Administration of sedatives and psychotropic medications ?? Incentive spirometry, pulmonary toilet and Optiflow support ?? Active and frequent monitoring of intake/output and volumen status and Glycemic control ?? Active diuresis and Active repletion of electrolytes ?? Empiric broad coverage antibiotics, Obtaining appropriate cultures and Review of prior or current culture/gram stain results ?? I spent time discussing the management of this critically ill patient with consultants and the medical staff, I spent time reviewing and interpreting data from bedside monitors, laboratory results, and imaging and I spent time documenting in the medical record us Frank Dugan MD IN CLINIC/BEDSIDE ORDERABLES Final Result * (ABNORMAL) POCT glucose (05/23/2021 6:14 PM STAFF FORESTER) [facility] Signature Glucose, POC 226(H) 70 - 199 mg/dL [facility] Blood 05/23/2021 6:14 PM STAFF FORESTER 05/23/2021 6:14 PM STAFF FORESTER us Rhina Granados MD LAB POCT ORDERABLES - DEVICE Final Result Performing Organization Address City/State/[facility] Co ma Phone Number [facility] [address] [facility] [place] [address] * Critical Care (05/23/2021 3:32 PM STAFF FORESTER) Narrative Dominique Wilkinson MD - 05/23/2021 3:32 PM STAFF FORESTER Silviano Huddleston NP ? 05/24/2021 ??8:40 AM Critical Care Performed by: Silviano Huddleston NP Authorized by: Silviano Huddleston NP CRITICAL CARE: ??Team: ??CHNE ??Shift: ??AM ??Level of Billing: ??Critical Care ??My time spent with this patient was 110 minutes: Critical Provider Statement: I have seen and examined the patient on this day of service. I have reviewed and confirmed the history, physical exam, laboratory and radiologic data as documented in the signed ICU note. I have reviewed and discussed my treatment plan with the ICU team and other medical/environmental remediation consultant staff, making frequent assessments and decisions regarding this patient's complex medical care. Critical Care time was exclusive of time spent performing separately billed procedures, treating other patients, and teaching. This time was in addition to and separate from critical care provided by other practitioners in my group on this day of service. Critical Care was necessary to treat or prevent imminent or life-threatening deterioration of the following conditions: ? Acute hypoxic respiratory failure ?? Hypo- or Hyperglycemia ?? Pneumonia ??This time was spent by me doing the following: ? Active and frequent reassessment of respiratory status and oxygen requirements and Optiflow support ?? Glycemic control ?? Review of prior or current culture/gram stain results ?? I spent time reviewing and interpreting data from bedside monitors, laboratory results, and imaging, I spent time discussing the management of this critically ill patient with consultants and the medical staff and I spent time documenting in the medical record us Silviano Huddleston ESCROW CLERK IN CLINIC/BEDSIDE ORDERABL ES Final Result * (ABNORMAL) POCT glucose (05/23/2021 2:43 PM STAFF FORESTER) Glucose, POC 276(H) 70 - 199 mg/dL [facility] Blood 05/23/2021 2:43 PM STAFF FORESTER 05/23/2021 2:43 PM STAFF FORESTER Rhina Granados MD LAB POCT ORDERABLES - DEVICE Final Result Performing Organization Address [facility] Co de Phone Number [facility] [address] [facility] [place] [address] * (ABNORMAL) POCT glucose (05/23/2021 1:12 PM STAFF FORESTER) Glucose, POC 239(H) 70 - 199 mg/dL [facility] Blood 05/23/2021 1:12 PM STAFF FORESTER 05/23/2021 1:12 PM STAFF FORESTER Rhina Granados MD LAB POCT ORDERABLES - DEVICE Final Result Performing Organization Address [facility]/ZIP Co de Phone Number [facility] [address] [facility] [place] [address] * POCT glucose (05/23/2021 11:56 AM STAFF FORESTER) Glucose, POC 129 70 - 199 mg/dL [facility] Blood 05/23/2021 11:5 6 AM STAFF FORESTER 05/23/2021 11:56 AM STAFF FORESTER us Rhina Granados MD LAB POCT ORDERABLES - DEVICE Final Result Performing Organization Address [facility] Co de Phone Number [facility] [address] [facility] [place] [address] * POCT glucose (05/23/2021 10:37 AM STAFF FORESTER) Glucose, POC 109 70 - 199 mg/dL [facility] Blood 05/23/2021 10:3 7 AM STAFF FORESTER 05/23/2021 10:37 AM STAFF FORESTER us Rhina Granados MD LAB POCT ORDERABLES - DEVICE Final Result Performing Organization Address [facility] de Phone Number [facility] [address] [facility] [place] [address] * POCT glucose (05/23/2021 9:26 AM STAFF FORESTER) Glucose, POC 114 70 - 199 mg/dL [facility] Blood 05/23/2021 9:26 AM STAFF FORESTER 05/23/2021 9:26 AM STAFF FORESTER us Rhina Granados MD LAB POCT ORDERABLES - DEVICE Final Result Performing Organization Address [facility] de Phone Number [facility] [address] [place] [address] * POCT glucose (05/23/2021 7:12 AM STAFF FORESTER) Glucose, POC 144 70 - 199 mg/dL [facility] Blood 05/23/2021 7:12 AM STAFF FORESTER 05/23/2021 7:12 AM STAFF FORESTER us Rhina Granados MD LAB POCT ORDERABLES - DEVICE Final Result Performing Organization Address [facility]/ZIP Co de Phone Number [facility] [address] [address] [place] [address] * POCT glucose (05/23/2021 6:09 AM STAFF FORESTER) Glucose, POC 144 70 - 199 mg/dL [facility] Blood 05/23/2021 6:09 AM STAFF FORESTER 05/23/2021 6:09 AM STAFF FORESTER Rhina Granados MD LAB POCT ORDERABLES - DEVICE Final Result [facility] [address] [place] [address] * XR Chest 1 Vw Portable (05/23/2021 5:19 AM STAFF FORESTER) Anatomical Region Laterality Modality Body, Chest N/A Computed Radiogr aphy 05/23/2021 8:19 AM STAFF FORESTER Impressions 05/23/2021 8:19 AM STAFF FORESTER Persistent bilateral perihilar mid and lower lung predominant alveolar infiltrate with progression on the right. Electronically signed by: Joie Bernardo M.D. Narrative 05/23/2021 8:19 AM STAFF FORESTER Examination: XR CHEST 1 VIEW Date: 05/23/2021 [...] right. Electronically signed by: Joie Bernardo M.D. Rhina Granados MD IMG XR PROCEDURES Final Resu lt * POCT glucose (05/23/2021 4:58 AM STAFF FORESTER) Glucose, POC 130 70 - 199 mg/dL [facility] Blood 05/23/2021 4:58 AM STAFF FORESTER 05/23/2021 4:58 AM STAFF FORESTER Rihna Granados MD LAB POCT ORDERABLES - DEVICE Final Result Performing Organization Address [facility] Co de Phone Number [facility] [address] [place] [address] * POCT glucose (05/23/2021 4:02 AM STAFF FORESTER) Glucose, POC 140 70 - 199 mg/dL [facility] Blood 05/23/2021 4:02 AM STAFF FORESTER 05/23/2021 4:02 AM STAFF FORESTER Rhina Granados MD LAB POCT ORDERABLES - DEVICE Final Result Performing Organization Address [facility] de Phone Number [facility] [address] [facility] [place] [address] * eGFR (05/23/2021 3:18 AM STAFF FORESTER) eGFR 121 mL/min/1.7 3 m2 [facility] Comment: Interpretive Data Reference Interval Normal ?>/= 90 mL/min/1.73m2 Mildly decreased* ? 60 - 89 mL/min/1.73m2 Mildly to moderately decreased ?45 - 59 mL/min/1.73m2 Moderately to severely decreased ??30 - 44 mL/min/1.73m2 Severely decreased ?15 - 29 mL/min/1.73m2 Kidney Failure ?< 15 ??mL/min/1.73m2 *Relative to young adult level Estimated glomerular filtration rate is determined by the CKD-EPI equation recommended by the National Kidney Foundation (KDIGO 2012 Clinical Practice Guideline for the Evaluation and Management of Chronic Kidney Disease. Kidney Intnl Suppl Jun 2012;3:1). The CKD-EPI equation should not be used for patients with unstable renal function and has not been validated in children and those over 70. Current interpretive data was last reviewed 2020 Blood 05/23/2021 3:18 AM STAFF FORESTER 05/23/2021 3:23 AM STAFF FORESTER us Silviano Huddleston NP LAB BLOOD ORDERABLES Final Result Performing Organization Address City/[facility]/ZIP Co de Phone Number [facility] [address] [place] [address] * POCT glucose (05/23/2021 3:18 AM STAFF FORESTER) Glucose, POC 137 70 - 199 mg/dL [facility] Blood 05/23/2021 3:18 AM STAFF FORESTER 05/23/2021 3:18 AM STAFF FORESTER Rhina Granados MD LAB POCT ORDERABLES - DEVICE Final Result Performing Organization Address [facility]/ZIP Co de Phone Number [facility] [address] [place] [address] * (ABNORMAL) Basic metabolic panel (05/23/2021 3:18 AM STAFF FORESTER) Sodium 132(L) 135 - 145 mmol/L [facility] Potassium, pl 3.5 3.3 - 4.9 mmol/L [facility] Chloride 95(L) 97 - 110 mmol/L [facility] CO2 23 22 - 32 mmol/L [facility] Anion gap 14 2 - 15 mmol/L [facility] BUN 21 8 - 25 mg/dL [facility] Creatinine 0.48(L) 0.80 - 1.30 mg/dL [facility] Glucose 141 70 - 199 mg/dL [facility] Comment: Interpretive Data Fasting glucose >/= 126 [...] interpretive data was last revised 2017. Calcium 8.4(L) 8.5 - 10.3 mg/dL [facility] Blood 05/23/2021 3:18 AM STAFF FORESTER 05/23/2021 3:23 AM STAFF FORESTER us Silviano Huddleston ESCROW CLERK LAB BLOOD ORDERABLES Final Result [facility] [address] [place] [address] * (ABNORMAL) CBC without differential (05/23/2021 3:18 AM STAFF FORESTER) WBC 10.0(H) 3.8 - 9.9 K/cumm [facility] Hgb 9.0(L) 13.0 - 17.5 g/dL [facility] Hct 27.8(L) 38.9 - 50.3 % [facility] Plt 408(H) 150 - 400 K/cumm [facility] MPV 11.4 9.1 - 12.3 fL [facility] RBC 3.06(L) 4.30 - 5.80 M/cumm [facility] MCV 90.8 81.3 - 96.4 fL [facility] MCH 29.4 27.1 - 33.3 pg [facility] MCHC 32.4 32.3 - 35.7 g/dL [facility] RDW CV 13.3 11.1 - 14.9 % [facility] RDW SD 44.3 35.7 - 48.1 fL [facility] NRBC abs 0.00 0.00 - 0.01 K/cumm [facility] Blood 05/23/2021 3:18 AM STAFF FORESTER 05/23/2021 3:23 AM STAFF FORESTER Silviano Huddleston ESCROW CLERK LAB BLOOD ORDERABLES Final Result Performing Organization Address [facility] de Phone Number [facility] [address] [facility] [place] [address] * Magnesium (05/23/2021 3:18 AM STAFF FORESTER) Magnesium 1.7 1.4 - 2.5 mg/dL [facility] Blood 05/23/2021 3:18 AM STAFF FORESTER 05/23/2021 3:23 AM STAFF FORESTER Silviano Huddleston ESCROW CLERK LAB BLOOD ORDERABLES Final Result Performing Organization Address [facility] de Phone Number [facility] [address] [facility] [place] [address] * Phosphorus (05/23/2021 3:18 AM STAFF FORESTER) Phosphorus, pl 3.0 2.3 - 4.5 mg/dL [facility] Blood 05/23/2021 3:18 AM STAFF FORESTER 05/23/2021 3:23 AM STAFF FORESTER Silviano Huddleston ESCROW CLERK LAB BLOOD ORDERABLES Final Result Performing Organization Address [facility] de Phone Number [facility] [address] [facility] [place] [address] * POCT glucose (05/23/2021 2:05 AM STAFF FORESTER) Glucose, POC 155 70 - 199 mg/dL [facility] Blood 05/23/2021 2:05 AM STAFF FORESTER 05/23/2021 2:05 AM STAFF FORESTER Rhina Granados MD LAB POCT ORDERABLES - DEVICE Final Result Performing Organization Address [facility] Co de Phone Number [facility] [address] [facility] [place] [address] * POCT glucose (05/23/2021 1:10 AM STAFF FORESTER) Glucose, POC 134 70 - 199 mg/dL [facility] Blood 05/23/2021 1:10 AM STAFF FORESTER 05/23/2021 1:10 AM STAFF FORESTER Rhina Granados MD LAB POCT ORDERABLES - DEVICE Final Result Performing Organization Address [facility] de Phone Number [facility] [address] [facility] [place] [address] * POCT glucose (05/22/2021 11:59 PM STAFF FORESTER) Glucose, POC 105 70 - 199 mg/dL [facility] Blood 05/22/2021 11:5 9 PM STAFF FORESTER 05/22/2021 11:59 PM STAFF FORESTER Rhina Granados MD LAB POCT ORDERABLES - DEVICE Final Result Performing Organization Address [facility] Co de Phone Number [facility] [address] [facility] [place] [address] * Critical Care (05/22/2021 11:35 PM STAFF FORESTER) Narrative Frank Dugna MD - 05/22/2021 11:35 PM STAFF FORESTER Frank Dugan MD ? 05/23/2021 ??5:38 AM Critical Care Performed by: Frank Dugan MD Authorized by: Frank Dugan MD CRITICAL CARE: ??Team: ??CHNE ??Shift: ??PM ??Level of Billing: ??Critical Care ??My time spent with this patient was 40 minutes: Critical Provider Statement: I have seen and examined the patient on this day of service. I have reviewed and confirmed the history, physical exam, laboratory and radiologic data as documented in the signed ICU note. I have reviewed and discussed my treatment plan with the ICU team and other medical/environmental remediation consultant staff, making frequent assessments and decisions regarding this patient's complex medical care. Critical Care time was exclusive of time spent performing separately billed procedures, treating other patients, and teaching. This time was in addition to and separate from critical care provided by other practitioners in my group on this day of service. Critical Care was necessary to treat or prevent imminent or life-threatening deterioration of the following conditions: ? Acute pain/acute postoperative pain ?? Post CABG x4 COVID-19 pneumonia ?? Acute hypoxic respiratory failure and Acute hypercarbic respiratory failure ?? Hypo- or Hyperglycemia ?? Leukocytosis, Sepsis and Pneumonia ??This time was spent by me doing the following: ? Acute pain control and Administration of sedatives and psychotropic medications ?? Optiflow support, Non-invasive positive pressure ventilator management and Active and frequent reassessment of respiratory status and oxygen requirements ?? Active and frequent monitoring of intake/output and volumen status and Glycemic control ?? Active repletion of electrolytes ?? Review of prior or current culture/gram stain results and Obtaining appropriate cultures ?? I spent time discussing the management of this critically ill patient with consultants and the medical staff, I spent time reviewing and interpreting data from bedside monitors, laboratory results, and imaging and I spent time documenting in the medical record us Frank Dugan MD IN CLINIC/BEDSIDE ORDERABLES Final Result * POCT glucose (05/22/2021 11:06 PM STAFF FORESTER) Glucose, POC 125 70 - 199 mg/dL [facility] Blood 05/22/2021 11:0 6 PM STAFF FORESTER 05/22/2021 11:06 PM STAFF FORESTER us Rhina Granados MD LAB POCT ORDERABLES - DEVICE Final Result [facility] [address] [place] [address] * POCT glucose (05/22/2021 10:04 PM STAFF FORESTER) Glucose, POC 124 70 - 199 mg/dL [facility] Blood 05/22/2021 10:0 4 PM STAFF FORESTER 05/22/2021 10:04 PM STAFF FORESTER us Rhina Granados MD LAB POCT ORDERABLES - DEVICE Final Result Performing Organization Address [facility] Co de Phone Number [facility] [address] [facility] [facility] [place] [place] [address] * POCT glucose (05/22/2021 9:21 PM STAFF FORESTER) Glucose, POC 160 70 - 199 mg/dL [facility] Blood 05/22/2021 9:21 PM STAFF FORESTER 05/22/2021 9:21 PM STAFF FORESTER us Rhina Granados MD LAB POCT ORDERABLES - DEVICE Final Result Performing Organization Address [facility] Co de Phone Number [facility] [address] [address] [facility] [place] [address] * POCT glucose (05/22/2021 8:18 PM STAFF FORESTER) Glucose, POC 184 70 - 199 mg/dL [facility] Blood 05/22/2021 8:18 PM STAFF FORESTER 05/22/2021 8:18 PM STAFF FORESTER us Rhina Granados MD LAB POCT ORDERABLES - DEVICE Final Result Performing Organization Address [facility] Co de Phone Number [facility] [address] [facility] [place] [address] * POCT glucose (05/22/2021 5:56 PM STAFF FORESTER) Glucose, POC 157 70 - 199 mg/dL [facility] Blood 05/22/2021 5:56 PM STAFF FORESTER 05/22/2021 5:56 PM STAFF FORESTER us Rhina Granados MD LAB POCT ORDERABLES - DEVICE Final Result Performing Organization Address [facility] Co de Phone Number [facility] [address] [facility] [place] [address] * POCT glucose (05/22/2021 4:55 PM STAFF FORESTER) Glucose, POC 160 70 - 199 mg/dL [facility] Blood 05/22/2021 4:55 PM STAFF FORESTER 05/22/2021 4:55 PM STAFF FORESTER Rhina Granados MD LAB POCT ORDERABLES - DEVICE Final Result Performing Organization Address [facility] de Phone Number [facility] [address] [facility] [place] [address] * POCT glucose (05/22/2021 3:47 PM STAFF FORESTER) Glucose, POC 140 70 - 199 mg/dL [facility] Blood 05/22/2021 3:47 PM STAFF FORESTER 05/22/2021 3:47 PM STAFF FORESTER Rhina Granados MD LAB POCT ORDERABLES - DEVICE Final Result Performing Organization Address [facility] Co de Phone Number [facility] [address] [facility] [place] [address] * POCT glucose (05/22/2021 2:35 PM STAFF FORESTER) Glucose, POC 153 70 - 199 mg/dL [facility] Blood 05/22/2021 2:35 PM STAFF FORESTER 05/22/2021 2:35 PM STAFF FORESTER Rhina Granados MD LAB POCT ORDERABLES - DEVICE Final Result Performing Organization Address [facility] Co de Phone Number [facility] [address] [facility] [place] [address] * POCT glucose (05/22/2021 1:32 PM STAFF FORESTER) Glucose, POC 140 70 - 199 mg/dL [facility] Blood 05/22/2021 1:32 PM STAFF FORESTER 05/22/2021 1:32 PM STAFF FORESTER Rhina Granados MD LAB POCT ORDERABLES - DEVICE Final Result Performing Organization Address [facility] Co de Phone Number [facility] [address] [facility] [place] [address] * POCT glucose (05/22/2021 12:27 PM STAFF FORESTER) Glucose, POC 156 70 - 199 mg/dL [facility] Blood 05/22/2021 12:2 7 PM STAFF FORESTER 05/22/2021 12:27 PM STAFF FORESTER Rhina Granados MD LAB POCT ORDERABLES - DEVICE Final Result Performing Organization Address [facility] de Phone Number [facility] [address] [facility] [place] [address] * POCT glucose (05/22/2021 11:30 AM STAFF FORESTER) Glucose, POC 194 70 - 199 mg/dL [facility] Blood 05/22/2021 11:3 0 AM STAFF FORESTER 05/22/2021 11:30 AM STAFF FORESTER Rhina Granados MD LAB POCT ORDERABLES - DEVICE Final Result Performing Organization Address [facility] Co de Phone Number [facility] [address] [facility] [place] [address] * (ABNORMAL) POCT glucose (05/22/2021 10:35 AM STAFF FORESTER) Glucose, POC 252(H) 70 - 199 mg/dL [facility] Blood 05/22/2021 10:3 5 AM STAFF FORESTER 05/22/2021 10:35 AM STAFF FORESTER us Rhina Granados MD LAB POCT ORDERABLES - DEVICE Final Result [facility] [address] [place] [address] * (ABNORMAL) POCT glucose (05/22/2021 9:32 AM STAFF FORESTER) Glucose, POC 284(H) 70 - 199 mg/dL [facility] Blood 05/22/2021 9:32 AM STAFF FORESTER 05/22/2021 9:32 AM STAFF FORESTER Rhina Granados MD LAB POCT ORDERABLES - DEVICE Final Result Performing Organization Address [facility] Co de Phone Number [facility] [address] [address] [facility] [place] [address] * XR Chest 1 Vw Portable (05/22/2021 8:36 AM STAFF FORESTER) Anatomical Region Laterality Modality Body, Chest N/A Computed Radiogr aphy 05/22/2021 9:56 AM STAFF FORESTER Impressions 05/22/2021 9:56 AM STAFF FORESTER Persistent near confluent alveolar infiltrate throughout the left lower lobe with milder involvement of the left upper lobe and right hemithorax.. Electronically signed by: Joie Bernardo M.D. Narrative 05/22/2021 9:56 AM STAFF FORESTER Examination: XR CHEST 1 VIEW Date: 05/22/2021 [...] hemithorax.. Electronically signed by: Joie Bernardo M.D. us Rhina Granados MD IMG XR PROCEDURES Final Resu lt * (ABNORMAL) POCT glucose (05/22/2021 8:28 AM STAFF FORESTER) Glucose, POC 225(H) 70 - 199 mg/dL [facility] Blood 05/22/2021 8:28 AM STAFF FORESTER 05/22/2021 8:28 AM STAFF FORESTER Rhina Granados MD LAB POCT ORDERABLES - DEVICE Final Result [facility] [address] [facility] [place] [address] * Critical Care (05/22/2021 7:44 AM STAFF FORESTER) Narrative Alexandru Porter MD - 05/22/2021 7:44 AM STAFF FORESTER Silviano Huddleston NP ? 05/22/2021 ??5:28 PM Critical Care Performed by: Silviano Huddleston NP Authorized by: Silviano Huddleston NP CRITICAL CARE: ??Team: ??CHNE ??Shift: ??AM ??Level of Billing: ??Critical Care ??My time spent with this patient was 115 minutes: Critical Provider Statement: I have seen and examined the patient on this day of service. I have reviewed and confirmed the history, physical exam, laboratory and radiologic data as documented in the signed ICU note. I have reviewed and discussed my treatment plan with the ICU team and other medical/environmental remediation consultant staff, making frequent assessments and decisions regarding this patient's complex medical care. Critical Care time was exclusive of time spent performing separately billed procedures, treating other patients, and teaching. This time was in addition to and separate from critical care provided by other practitioners in my group on this day of service. Critical Care was necessary to treat or prevent imminent or life-threatening deterioration of the following conditions: ? Acute delirium ?? Atelectasis and Acute hypoxic respiratory failure ?? Acid-base disturbance, Hypo- or Hyperglycemia and Acute electrolyte derangement ?? Leukocytosis and Pneumonia ??This time was spent by me doing the following: ? Obtaining peripheral venous access or blood draws and Serial laboratory checks ?? Acute pain control ?? Active and frequent reassessment of respiratory status and oxygen requirements and Optiflow support ?? Active and frequent monitoring of intake/output and volumen status ?? I spent time reviewing and interpreting data from bedside monitors, laboratory results, and imaging, I spent time discussing the management of this critically ill patient with consultants and the medical staff and I spent time documenting in the medical record us Silviano Huddleston ESCROW CLERK IN CLINIC/BEDSIDE ORDERABL ES Final Result * POCT glucose (05/22/2021 6:25 AM STAFF FORESTER) Glucose, POC 163 70 - 199 mg/dL [facility] Blood 05/22/2021 6:25 AM STAFF FORESTER 05/22/2021 6:25 AM STAFF FORESTER Rhina Granados MD LAB POCT ORDERABLES - DEVICE Final Result [facility] [address] [address] [place] [address] * (ABNORMAL) Pro B-type natriuretic peptide (05/22/2021 3:49 AM STAFF FORESTER) NT-proBNP 2,233(H) <=300 pg/mL [facility] Comment: Interpretive Comments: A. Dyspnea in Acute Care Setting All Ages: ?< 300 pg/ml, acute heart failure unlikely. < 50 yrs: ?300 - 450 pg/ml, further investigation warranted. ? > 450 pg/ml, acute heart failure likely. 50 - 74 yrs: ? 300 - 900 pg/ml, further investigation warranted. ? > 900 pg/ml, acute heart failure likely . > or = 75 yrs: ? 450 - 1800 pg/ml, further investigation warranted. ? > 1800 pg/ml, acute heart failure likely. B. Non-acute Setting < 75 yrs ? < 125 pg/ml, rules out heart failure. ? > or = 125 pg/ml, further investigation warranted. > or = 75 yrs ?< 450 pg/ml, rules out heart failure. ? > or = 450 pg/ml, further investigation warranted. - Knowledge of each individual patient's NT-proBNP range may be more useful than using similar cut-points for every patient. Please note that marked elevations in NT-proBNP levels may be observed in state other than Left Ventricular Congestive Failure, including: acute coronary syndromes, right heart strain/failure (including pulmonary embolism and cor pulmonale), critical illness, renal failure, as well as advanced age. - References: 1. Matt ABBOTT et.al. Eur Heart J. 2006:27:330-337. 2. Eligio RW, Luis Alberto DURANT. J. AM Daisy Cardiol: Cardiovasc Imag. 2009;2: 216- 225. Interpretive Data Last Revised Date: 2018. Blood 05/22/2021 3:49 AM STAFF FORESTER 05/22/2021 8:52 AM STAFF FORESTER us Nalini Clayton MD LAB BLOOD ORDERABLES Final Resul t Performing Organization Address City/State/ZIP Co ma Phone Number [facility] [address] [address] [place] [address] * eGFR (05/22/2021 3:49 AM STAFF FORESTER) eGFR 109 mL/min/1.7 3 m2 [facility] Comment: Interpretive Data Reference Interval Normal ?>/= 90 mL/min/1.73m2 Mildly decreased* ? 60 - 89 mL/min/1.73m2 Mildly to moderately decreased ?45 - 59 mL/min/1.73m2 Moderately to severely decreased ??30 - 44 mL/min/1.73m2 Severely decreased ?15 - 29 mL/min/1.73m2 Kidney Failure ?< 15 ??mL/min/1.73m2 *Relative to young adult level Estimated glomerular filtration rate is determined by the CKD-EPI equation recommended by the National Kidney Foundation (KDIGO 2012 Clinical Practice Guideline for the Evaluation and Management of Chronic Kidney Disease. Kidney Intnl Suppl Jun 2012;3:1). The CKD-EPI equation should not be used for patients with unstable renal function and has not been validated in children and those over 70. Current interpretive data was last reviewed 2020 Blood 05/22/2021 3:49 AM STAFF FORESTER 05/22/2021 4:10 AM STAFF FORESTER us Silviano Huddleston ESCROW CLERK LAB BLOOD ORDERABLES Final Result [facility] [address] [address] [place] [address] * (ABNORMAL) Basic metabolic panel (05/22/2021 3:49 AM STAFF FORESTER) Sodium 134(L) 135 - 145 mmol/L [facility] Potassium, pl 3.5 3.3 - 4.9 mmol/L [facility] Chloride 98 97 - 110 mmol/L [facility] CO2 22 22 - 32 mmol/L [facility] Anion gap 14 2 - 15 mmol/L [facility] BUN 24 8 - 25 mg/dL [facility] Creatinine 0.62(L) 0.80 - 1.30 mg/dL [facility] Glucose 227(H) 70 - 199 mg/dL [facility] Comment: Interpretive Data Fasting glucose >/= 126 [...] interpretive data was last revised 2017. Calcium 8.6 8.5 - 10.3 mg/dL [facility] Blood 05/22/2021 3:49 AM STAFF FORESTER 05/22/2021 4:10 AM STAFF FORESTER Silviano Huddleston ESCROW CLERK LAB BLOOD ORDERABLES Final Result [facility] [address] [place] [address] * (ABNORMAL) CBC without differential (05/22/2021 3:49 AM STAFF FORESTER) WBC 7.3 3.8 - 9.9 K/cumm [facility] Hgb 9.2(L) 13.0 - 17.5 g/dL [facility] Hct 28.0(L) 38.9 - 50.3 % [facility] Plt 381 150 - 400 K/cumm [facility] MPV 11.8 9.1 - 12.3 fL [facility] RBC 3.05(L) 4.30 - 5.80 M/cumm [facility] MCV 91.8 81.3 - 96.4 fL [facility] MCH 30.2 27.1 - 33.3 pg [facility] MCHC 32.9 32.3 - 35.7 g/dL [facility] RDW CV 13.3 11.1 - 14.9 % [facility] RDW SD 44.4 35.7 - 48.1 fL [facility] NRBC abs 0.00 0.00 - 0.01 K/cumm [facility] Blood 05/22/2021 3:49 AM STAFF FORESTER 05/22/2021 4:10 AM STAFF FORESTER Silviano Huddleston ESCROW CLERK LAB BLOOD ORDERABLES Final Result Performing Organization Address [facility] Co de Phone Number [facility] [address] [facility] [place] [address] * Magnesium (05/22/2021 3:49 AM STAFF FORESTER) Magnesium 2.1 1.4 - 2.5 mg/dL [facility] Blood 05/22/2021 3:49 AM STAFF FORESTER 05/22/2021 4:10 AM STAFF FORESTER Silviano Huddleston ESCROW CLERK LAB BLOOD ORDERABLES Final Result Performing Organization Address [facility] de Phone Number [facility] [address] [place] [place] [address] * (ABNORMAL) Phosphorus (05/22/2021 3:49 AM STAFF FORESTER) Phosphorus, pl 2.2(L) 2.3 - 4.5 mg/dL [facility] Blood 05/22/2021 3:49 AM STAFF FORESTER 05/22/2021 4:10 AM STAFF FORESTER Silviano Huddleston ESCROW CLERK LAB BLOOD ORDERABLES Final Result Performing Organization Address [facility] Co de Phone Number [facility] [address] [place] [address] * (ABNORMAL) POCT glucose (05/22/2021 2:27 AM STAFF FORESTER) Glucose, POC 266(H) 70 - 199 mg/dL [facility] Blood 05/22/2021 2:27 AM STAFF FORESTER 05/22/2021 2:27 AM STAFF FORESTER Rhina Granados MD LAB POCT ORDERABLES - DEVICE Final Result Performing Organization Address City/[facility]/ZIP Co de Phone Number [facility] [address] [place] [address] * (ABNORMAL) POCT glucose (05/21/2021 11:39 PM STAFF FORESTER) Glucose, POC 268(H) 70 - 199 mg/dL [facility] Blood 05/21/2021 11:3 9 PM STAFF FORESTER 05/21/2021 11:39 PM STAFF FORESTER Rhina Granados MD LAB POCT ORDERABLES - DEVICE Final Result Performing Organization Address [facility] Co de Phone Number [facility] [address] [address] [place] [address] * Critical Care (05/21/2021 11:31 PM STAFF FORESTER) Narrative Jose Conti MD - 05/21/2021 11:31 PM STAFF FORESTER Jose Conti MD ? 05/21/2021 11:33 PM Critical Care Performed by: Jose Conti MD Authorized by: Jose Conti MD CRITICAL CARE: ??Team: ??CHNE ??Shift: ??PM ??Level of Billing: ??Critical Care ??My time spent with this patient was 30 minutes: Critical Provider Statement: I have seen and examined the patient on this day of service. I have reviewed and confirmed the history, physical exam, laboratory and radiologic data as documented in the signed ICU note. I have reviewed and discussed my treatment plan with the ICU team and other medical/environmental remediation consultant staff, making frequent assessments and decisions regarding this patient's complex medical care. Critical Care time was exclusive of time spent performing separately billed procedures, treating other patients, and teaching. This time was in addition to and separate from critical care provided by other practitioners in my group on this day of service. Critical Care was necessary to treat or prevent imminent or life-threatening deterioration of the following conditions: ? covid-19 pneumonia ?? Acute hypoxic respiratory failure ?? Hypo- or Hyperglycemia ??This time was spent by me doing the following: ? Active and frequent reassessment of respiratory status and oxygen requirements and Optiflow support ?? Active and frequent monitoring of intake/output and volumen status and Glycemic control ?? Active diuresis ?? I spent time reviewing and interpreting data from bedside monitors, laboratory results, and imaging, I spent time discussing the management of this critically ill patient with consultants and the medical staff and I spent time documenting in the medical record us Jose Conti MD IN CLINIC/BEDSIDE ORDERABLES Fin al Result * (ABNORMAL) POCT glucose (05/21/2021 9:41 PM STAFF FORESTER) Glucose, POC 224(H) 70 - 199 mg/dL [facility] Blood 05/21/2021 9:41 PM STAFF FORESTER 05/21/2021 9:41 PM STAFF FORESTER us Rhina Granados MD LAB POCT ORDERABLES - DEVICE Final Result Performing Organization Address City/State/ZIP Co ma Phone Number [facility] [address] [place] [address] * eGFR (05/21/2021 9:18 PM STAFF FORESTER) eGFR 102 mL/min/1.7 3 m2 [facility] Comment: Interpretive Data Reference Interval Normal ?>/= 90 mL/min/1.73m2 Mildly decreased* ? 60 - 89 mL/min/1.73m2 Mildly to moderately decreased ?45 - 59 mL/min/1.73m2 Moderately to severely decreased ??30 - 44 mL/min/1.73m2 Severely decreased ?15 - 29 mL/min/1.73m2 Kidney Failure ?< 15 ??mL/min/1.73m2 *Relative to young adult level Estimated glomerular filtration rate is determined by the CKD-EPI equation recommended by the National Kidney Foundation (KDIGO 2012 Clinical Practice Guideline for the Evaluation and Management of Chronic Kidney Disease. Kidney Intnl Suppl Jun 2012;3:1). The CKD-EPI equation should not be used for patients with unstable renal function and has not been validated in children and those over 70. Current interpretive data was last reviewed 2020 Blood 05/21/2021 9:18 PM STAFF FORESTER 05/21/2021 11:51 PM STAFF FORESTER us Jose Conti MD LAB BLOOD ORDERABLES Final Resul t [facility] [address] [place] [address] * (ABNORMAL) Basic metabolic panel (05/21/2021 9:18 PM STAFF FORESTER) Sodium 135 135 - 145 mmol/L [facility] Potassium, pl 4.3 3.3 - 4.9 mmol/L [facility] Chloride 97 97 - 110 mmol/L [facility] CO2 22 22 - 32 mmol/L [facility] Anion gap 16(H) 2 - 15 mmol/L [facility] BUN 31(H) 8 - 25 mg/dL [facility] Creatinine 0.72(L) 0.80 - 1.30 mg/dL [facility] Glucose 257(H) 70 - 199 mg/dL [facility] Comment: Interpretive Data Fasting glucose >/= 126 [...] interpretive data was last revised 2017. Calcium 8.6 8.5 - 10.3 mg/dL [facility] Blood 05/21/2021 9:18 PM STAFF FORESTER 05/21/2021 11:51 PM STAFF FORESTER us Jose Conti MD LAB BLOOD ORDERABLES Final Resul t Performing Organization Address [facility] de Phone Number [facility] [address] [address] [facility] [place] [address] * Phosphorus (05/21/2021 9:18 PM STAFF FORESTER) Phosphorus, pl 2.7 2.3 - 4.5 mg/dL [facility] Blood 05/21/2021 9:18 PM STAFF FORESTER 05/21/2021 9:29 PM STAFF FORESTER us Jose Conti MD LAB BLOOD ORDERABLES Final Resul t Performing Organization Address [facility] de Phone Number [facility] [address] [place] [address] * Magnesium (05/21/2021 9:18 PM STAFF FORESTER) Magnesium 2.3 1.4 - 2.5 mg/dL [facility] Blood 05/21/2021 9:18 PM STAFF FORESTER 05/21/2021 9:29 PM STAFF FORESTER us Jose Conti MD LAB BLOOD ORDERABLES Final Resul t Performing Organization Address [facility] de Phone Number [facility] [address] [address] [facility] [place] [address] * Calcium, ionized (05/21/2021 9:18 PM STAFF FORESTER) Ca, ionized, bld 4.70 4.60 - 5.20 mg/dL [facility] Ca, ionized, bld, calc 4.75 4.60 - 5.20 mg/dL [facility] Blood 05/21/2021 9:18 PM STAFF FORESTER 05/21/2021 9:28 PM STAFF FORESTER us Jose Conti MD LAB BLOOD ORDERABLES Final Resul t Performing Organization Address [facility] Co de Phone Number [facility] [address] [address] [facility] [place] [address] * (ABNORMAL) POCT glucose (05/21/2021 8:14 PM STAFF FORESTER) Glucose, POC 312(H) 70 - 199 mg/dL [facility] Blood 05/21/2021 8:14 PM STAFF FORESTER 05/21/2021 8:14 PM STAFF FORESTER Rhina Granados MD LAB POCT ORDERABLES - DEVICE Final Result Performing Organization Address [facility] Co de Phone Number [facility] [address] [place] [address] * (ABNORMAL) POCT glucose (05/21/2021 3:46 PM STAFF FORESTER) Glucose, POC 318(H) 70 - 199 mg/dL [facility] Blood 05/21/2021 3:46 PM STAFF FORESTER 05/21/2021 3:46 PM STAFF FORESTER Rhina Granados MD LAB POCT ORDERABLES - DEVICE Final Result Performing Organization Address [facility] Co de Phone Number [facility] [address] [address] [facility] [place] [address] * (ABNORMAL) POCT glucose (05/21/2021 11:59 AM STAFF FORESTER) Glucose, POC 218(H) 70 - 199 mg/dL [facility] 05/21/2021 11:5 9 AM STAFF FORESTER 05/21/2021 11:59 AM STAFF FORESTER us Rhina Granados MD LAB POCT ORDERABLES - DEVICE Final Result Performing Organization Address [facility] Co de Phone Number [facility] [address] [place] [address] * POCT glucose (05/21/2021 8:06 AM STAFF FORESTER) Glucose, POC 177 70 - 199 mg/dL [facility] Blood 05/21/2021 8:06 AM STAFF FORESTER 05/21/2021 8:06 AM STAFF FORESTER Rhina Granados MD LAB POCT ORDERABLES - DEVICE Final Result [facility] [address] [facility] [place] [address] * Critical Care (05/21/2021 8:00 AM STAFF FORESTER) Narrative Alexandru Porter MD - 05/21/2021 8:00 AM STAFF FORESTER Silviano Huddleston NP ? 05/21/2021 ??8:24 PM Critical Care Performed by: Silviano Huddleston NP Authorized by: Silviano Huddleston NP CRITICAL CARE: ??Team: ??CHNE ??Shift: ??AM ??Level of Billing: ??Critical Care ??My time spent with this patient was 75 minutes: Critical Provider Statement: I have seen and examined the patient on this day of service. I have reviewed and confirmed the history, physical exam, laboratory and radiologic data as documented in the signed ICU note. I have reviewed and discussed my treatment plan with the ICU team and other medical/environmental remediation consultant staff, making frequent assessments and decisions regarding this patient's complex medical care. Critical Care time was exclusive of time spent performing separately billed procedures, treating other patients, and teaching. This time was in addition to and separate from critical care provided by other practitioners in my group on this day of service. Critical Care was necessary to treat or prevent imminent or life-threatening deterioration of the following conditions: ? Acute hypoxic respiratory failure ??This time was spent by me doing the following: ? Obtaining peripheral venous access or blood draws and Serial laboratory checks ?? Active and frequent reassessment of respiratory status and oxygen requirements and Optiflow support ?? Active and frequent monitoring of intake/output and volumen status and Enteral tube feeding management ?? I spent time reviewing and interpreting data from bedside monitors, laboratory results, and imaging, I spent time discussing the management of this critically ill patient with consultants and the medical staff, I spent time documenting in the medical record, I spent time talking to this patient's relatives to obtain additional medical history due to patient's inabililty to provide history and I spent time talking to this patient's surrogate decision maker to determine treatment plans due to patient's inability to participate in decision making Silviano Huddleston ESCROW CLERK IN CLINIC/BEDSIDE ORDERABL ES Final Result * eGFR (05/21/2021 4:13 AM STAFF FORESTER) eGFR 99 mL/min/1.7 3 m2 [facility] Comment: Interpretive Data Reference Interval Normal ?>/= 90 mL/min/1.73m2 Mildly decreased* ? 60 - 89 mL/min/1.73m2 Mildly to moderately decreased ?45 - 59 mL/min/1.73m2 Moderately to severely decreased ??30 - 44 mL/min/1.73m2 Severely decreased ?15 - 29 mL/min/1.73m2 Kidney Failure ?< 15 ??mL/min/1.73m2 *Relative to young adult level Estimated glomerular filtration rate is determined by the CKD-EPI equation recommended by the National Kidney Foundation (KDIGO 2012 Clinical Practice Guideline for the Evaluation and Management of Chronic Kidney Disease. Kidney Intnl Suppl Jun 2012;3:1). The CKD-EPI equation should not be used for patients with unstable renal function and has not been validated in children and those over 70. Current interpretive data was last reviewed 2020 Blood 05/21/2021 4:13 AM STAFF FORESTER 05/21/2021 4:13 AM STAFF FORESTER us Silviano Huddleston ESCROW CLERK LAB BLOOD ORDERABLES Final Result [facility] [address] [place] [address] * (ABNORMAL) Basic metabolic panel (05/21/2021 4:13 AM STAFF FORESTER) Sodium 135 135 - 145 mmol/L [facility] Potassium, pl 3.2(L) 3.3 - 4.9 mmol/L [facility] Chloride 97 97 - 110 mmol/L [facility] CO2 24 22 - 32 mmol/L [facility] Anion gap 14 2 - 15 mmol/L [facility] BUN 34(H) 8 - 25 mg/dL [facility] Creatinine 0.78(L) 0.80 - 1.30 mg/dL [facility] Glucose 175 70 - 199 mg/dL [facility] Comment: Interpretive Data Fasting glucose >/= 126 [...] interpretive data was last revised 2017. Calcium 8.6 8.5 - 10.3 mg/dL [facility] Blood 05/21/2021 4:13 AM STAFF FORESTER 05/21/2021 4:13 AM STAFF FORESTER Silviano Huddleston NP LAB BLOOD ORDERABLES Final Result Performing Organization Address City/[facility]/ZIP Co de Phone Number [facility] [address] [facility] [place] [address] * Magnesium (05/21/2021 4:13 AM STAFF FORESTER) Magnesium 2.3 1.4 - 2.5 mg/dL [facility] Blood 05/21/2021 4:13 AM STAFF FORESTER 05/21/2021 4:13 AM STAFF FORESTER Silviano Huddleston ESCROW CLERK LAB BLOOD ORDERABLES Final Result [facility] [address] [place] [address] * (ABNORMAL) Phosphorus (05/21/2021 4:13 AM STAFF FORESTER) Phosphorus, pl 2.1(L) 2.3 - 4.5 mg/dL [facility] Blood 05/21/2021 4:13 AM STAFF FORESTER 05/21/2021 4:13 AM STAFF FORESTER Silviano Huddleston ESCROW CLERK LAB BLOOD ORDERABLES Final Result Performing Organization Address [facility] Co de Phone Number [facility] [address] [place] [address] * (ABNORMAL) CBC without differential (05/21/2021 3:57 AM STAFF FORESTER) Pathologist [facility] WBC 8.3 3.8 - 9.9 K/cumm [facility] Hgb 9.5(L) 13.0 - 17.5 g/dL [facility] Hct 28.7(L) 38.9 - 50.3 % [facility] Plt 355 150 - 400 K/cumm [facility] MPV 11.6 9.1 - 12.3 fL [facility] RBC 3.20(L) 4.30 - 5.80 M/cumm [facility] MCV 89.7 81.3 - 96.4 fL [facility] MCH 29.7 27.1 - 33.3 pg [facility] MCHC 33.1 32.3 - 35.7 g/dL [facility] RDW CV 13.2 11.1 - 14.9 % [facility] RDW SD 43.7 35.7 - 48.1 fL [facility] NRBC abs 0.00 0.00 - 0.01 K/cumm [facility] Blood 05/21/2021 3:57 AM STAFF FORESTER 05/21/2021 4:13 AM STAFF FORESTER Silviano Huddleston ESCROW CLERK LAB BLOOD ORDERABLES Final Result Performing Organization Address [facility]/ZIP Co de Phone Number [facility] [address] [place] [address] * POCT glucose (05/21/2021 2:57 AM STAFF FORESTER) Glucose, POC 169 70 - 199 mg/dL [facility] Blood 05/21/2021 2:57 AM STAFF FORESTER 05/21/2021 2:57 AM STAFF FORESTER us Rhina Granados MD LAB POCT ORDERABLES - DEVICE Final Result Performing Organization Address City/State/[facility] Co ma Phone Number [facility] [address] [facility] [place] [address] * Critical Care (05/20/2021 11:33 PM STAFF FORESTER) Narrative Jose Conti MD - 05/20/2021 11:33 PM STAFF FORESTER Jose Conti MD ? 05/21/2021 11:34 PM Critical Care Performed by: Jose Conti MD Authorized by: Jose Conti MD CRITICAL CARE: ??Team: ??CHNE ??Shift: ??PM ??Level of Billing: ??Critical Care ??My time spent with this patient was 30 minutes: Critical Provider Statement: I have seen and examined the patient on this day of service. I have reviewed and confirmed the history, physical exam, laboratory and radiologic data as documented in the signed ICU note. I have reviewed and discussed my treatment plan with the ICU team and other medical/environmental remediation consultant staff, making frequent assessments and decisions regarding this patient's complex medical care. Critical Care time was exclusive of time spent performing separately billed procedures, treating other patients, and teaching. This time was in addition to and separate from critical care provided by other practitioners in my group on this day of service. Critical Care was necessary to treat or prevent imminent or life-threatening deterioration of the following conditions: ? covid-19 pneumonia ?? Acute hypoxic respiratory failure and Pulmonary edema ??This time was spent by me doing the following: ? Serial bedside patient exams and Serial laboratory checks ?? Active and frequent reassessment of respiratory status and oxygen requirements, Optiflow support and Incentive spirometry, pulmonary toilet ?? Active and frequent monitoring of intake/output and volumen status ?? Active diuresis ?? I spent time reviewing and interpreting data from bedside monitors, laboratory results, and imaging, I spent time discussing the management of this critically ill patient with consultants and the medical staff and I spent time documenting in the medical record us Jose Conti MD IN CLINIC/BEDSIDE ORDERABLES Anthony merline Result - Final * (ABNORMAL) POCT glucose (05/20/2021 7:55 PM STAFF FORESTER) Glucose, POC 207(H) 70 - 199 mg/dL [facility] Blood 05/20/2021 7:55 PM STAFF FORESTER 05/20/2021 7:55 PM STAFF FORESTER us Rhina Granados MD LAB POCT ORDERABLES - DEVICE Final Result Performing Organization Address [facility] Co de Phone Number [facility] [address] [facility] [place] [address] * (ABNORMAL) POCT glucose (05/20/2021 5:03 PM STAFF FORESTER) Glucose, POC 349(H) 70 - 199 mg/dL [facility] Blood 05/20/2021 5:03 PM STAFF FORESTER 05/20/2021 5:03 PM STAFF FORESTER us Rhina Granados MD LAB POCT ORDERABLES - DEVICE Final Result Performing Organization Address [facility] Co de Phone Number [facility] [address] [facility] [address] [place], [place] [id number] * (ABNORMAL) POCT glucose (05/20/2021 12:50 PM STAFF FORESTER) Glucose, POC 343(H) 70 - 199 mg/dL [facility] Blood 05/20/2021 12:5 0 PM STAFF FORESTER 05/20/2021 12:50 PM STAFF FORESTER us Rhina Granados MD LAB POCT ORDERABLES - DEVICE Final Result Performing Organization Address [facility] Co de Phone Number [facility] [address] [facility] [address] [place], [place] [id number] * (ABNORMAL) POCT glucose (05/20/2021 9:02 AM STAFF FORESTER) Glucose, POC 238(H) 70 - 199 mg/dL [facility] Blood 05/20/2021 9:02 AM STAFF FORESTER 05/20/2021 9:02 AM STAFF FORESTER us Rhina Granados MD LAB POCT ORDERABLES - DEVICE Final Result [facility] [address] [place] [address] * Critical Care (05/20/2021 8:00 AM STAFF FORESTER) Narrative Alexandru Porter MD - 05/20/2021 8:00 AM STAFF FORESTER Silviano Huddleston NP ? 05/20/2021 ??5:41 PM Critical Care Performed by: Silviano Huddleston NP Authorized by: Silviano Huddleston NP CRITICAL CARE: ??Team: ??CHNE ??Shift: ??AM ??Level of Billing: ??Critical Care ??My time spent with this patient was 95 minutes: Critical Provider Statement: I have seen and examined the patient on this day of service. I have reviewed and confirmed the history, physical exam, laboratory and radiologic data as documented in the signed ICU note. I have reviewed and discussed my treatment plan with the ICU team and other medical/environmental remediation consultant staff, making frequent assessments and decisions regarding this patient's complex medical care. Critical Care time was exclusive of time spent performing separately billed procedures, treating other patients, and teaching. This time was in addition to and separate from critical care provided by other practitioners in my group on this day of service. Critical Care was necessary to treat or prevent imminent or life-threatening deterioration of the following conditions: ? Acute hypoxic respiratory failure ?? Hypo- or Hyperglycemia and Acid-base disturbance ?? Pneumonia ??This time was spent by me doing the following: ? Obtaining peripheral venous access or blood draws, Serial bedside patient exams, Serial laboratory checks and Resuscitation with fluids ?? Active and frequent reassessment of respiratory status and oxygen requirements, Non-invasive positive pressure ventilator management and Optiflow support ?? Active and frequent monitoring of intake/output and volumen status and Glycemic control ?? Active repletion of electrolytes ?? Review of prior or current culture/gram stain results ?? I spent time reviewing and interpreting data from bedside monitors, laboratory results, and imaging, I spent time discussing the management of this critically ill patient with consultants and the medical staff and I spent time documenting in the medical record us Silviano Huddleston ESCROW CLERK IN CLINIC/BEDSIDE ORDERABL ES Final Result * (ABNORMAL) CRP (acute phase) (05/20/2021 3:28 AM STAFF FORESTER) CRP 68.7(H) <=10.0 mg/L [facility] Blood 05/20/2021 3:28 AM STAFF FORESTER 05/20/2021 11:47 AM STAFF FORESTER us Alexandru Porter MD LAB BLOOD ORDERABLES Final Result Performing Organization Address City/State/[facility] Phone Number [facility] [address] [place] [address] * eGFR (05/20/2021 3:28 AM STAFF FORESTER) eGFR 70 mL/min/1.7 3 m2 [facility] Comment: Interpretive Data Reference Interval Normal ?>/= 90 mL/min/1.73m2 Mildly decreased* ? 60 - 89 mL/min/1.73m2 Mildly to moderately decreased ?45 - 59 mL/min/1.73m2 Moderately to severely decreased ??30 - 44 mL/min/1.73m2 Severely decreased ?15 - 29 mL/min/1.73m2 Kidney Failure ?< 15 ??mL/min/1.73m2 *Relative to young adult level Estimated glomerular filtration rate is determined by the CKD-EPI equation recommended by the National Kidney Foundation (KDIGO 2012 Clinical Practice Guideline for the Evaluation and Management of Chronic Kidney Disease. Kidney Intnl Suppl Jun 2012;3:1). The CKD-EPI equation should not be used for patients with unstable renal function and has not been validated in children and those over 70. Current interpretive data was last reviewed 2020 Blood 05/20/2021 3:28 AM STAFF FORESTER 05/20/2021 4:07 AM STAFF FORESTER Rhina Granados MD LAB BLOOD ORDERABLES Final R esult [facility] [address] [place] [address] * (ABNORMAL) Basic metabolic panel (05/20/2021 3:28 AM STAFF FORESTER) Sodium 132(L) 135 - 145 mmol/L [facility] Potassium, pl 4.0 3.3 - 4.9 mmol/L [facility] Chloride 94(L) 97 - 110 mmol/L [facility] CH CO2 21(L) 22 - 32 mmol/L [facility] Anion gap 17(H) 2 - 15 mmol/L [facility] BUN 45(H) 8 - 25 mg/dL [facility] Creatinine 1.14 0.80 - 1.30 mg/dL [facility] Glucose 186 70 - 199 mg/dL [facility] Comment: Interpretive Data Fasting glucose >/= 126 [...] 2017. Calcium 8.8 8.5 - 10.3 mg/dL [facility] Blood 05/20/2021 3:28 AM STAFF FORESTER 05/20/2021 3:57 AM STAFF FORESTER us Rhina Granados MD LAB BLOOD ORDERABLES Final R esult Performing Organization Address City/[facility]/ZIP Co de Phone Number [facility] [address] [facility] [place] [address] * (ABNORMAL) CBC without differential (05/20/2021 3:28 AM STAFF FORESTER) WBC 9.3 3.8 - 9.9 K/cumm [facility] Hgb 10.6(L) 13.0 - 17.5 g/dL [facility] Hct 32.5(L) 38.9 - 50.3 % [facility] Plt 381 150 - 400 K/cumm [facility] MPV 11.7 9.1 - 12.3 fL [facility] RBC 3.59(L) 4.30 - 5.80 M/cumm [facility] MCV 90.5 81.3 - 96.4 fL [facility] MCH 29.5 27.1 - 33.3 pg [facility] MCHC 32.6 32.3 - 35.7 g/dL [facility] RDW CV 13.2 11.1 - 14.9 % [facility] CH RDW SD 43.9 35.7 - 48.1 fL [facility] NRBC abs 0.00 0.00 - 0.01 K/cumm [facility] Blood 05/20/2021 3:28 AM STAFF FORESTER 05/20/2021 3:58 AM STAFF FORESTER Silviano Huddleston NP LAB BLOOD ORDERABLES Final Result Performing Organization Address City/[facility]/ZIP Co de Phone Number [facility] [address] [place] [address] * Magnesium (05/20/2021 3:28 AM STAFF FORESTER) Magnesium 2.4 1.4 - 2.5 mg/dL [facility] Blood 05/20/2021 3:28 AM STAFF FORESTER 05/20/2021 3:57 AM STAFF FORESTER Silviano Huddleston ESCROW CLERK LAB BLOOD ORDERABLES Final Result Performing Organization Address City/[facility]/ZIP Co de Phone Number [facility] [address] [facility] [place] [address] * Phosphorus (05/20/2021 3:28 AM STAFF FORESTER) Phosphorus, pl 3.2 2.3 - 4.5 mg/dL [facility] Blood 05/20/2021 3:28 AM STAFF FORESTER 05/20/2021 3:57 AM STAFF FORESTER us Silviano Huddleston ESCROW CLERK LAB BLOOD ORDERABLES Final Result Performing Organization Address [facility] de Phone Number [facility] [address] [place] [address] * POCT glucose (05/20/2021 1:28 AM STAFF FORESTER) Glucose, POC 155 70 - 199 mg/dL [facility] Blood 05/20/2021 1:28 AM STAFF FORESTER 05/20/2021 1:28 AM STAFF FORESTER Rhina Granados MD LAB POCT ORDERABLES - DEVICE Final Result Performing Organization Address [facility] de Phone Number [facility] [address] [place] [address] * eGFR (05/20/2021 12:25 AM STAFF FORESTER) eGFR 77 mL/min/1.7 3 m2 [facility] Comment: Interpretive Data Reference Interval Normal ?>/= 90 mL/min/1.73m2 Mildly decreased* ? 60 - 89 mL/min/1.73m2 Mildly to moderately decreased ?45 - 59 mL/min/1.73m2 Moderately to severely decreased ??30 - 44 mL/min/1.73m2 Severely decreased ?15 - 29 mL/min/1.73m2 Kidney Failure ?< 15 ??mL/min/1.73m2 *Relative to young adult level Estimated glomerular filtration rate is determined by the CKD-EPI equation recommended by the National Kidney Foundation (KDIGO 2012 Clinical Practice Guideline for the Evaluation and Management of Chronic Kidney Disease. Kidney Intnl Suppl Jun 2012;3:1). The CKD-EPI equation should not be used for patients with unstable renal function and has not been validated in children and those over 70. Current interpretive data was last reviewed 2020 Blood 05/20/2021 12:2 5 AM STAFF FORESTER 05/20/2021 12:35 AM STAFF FORESTER us Rhina Granados MD LAB BLOOD ORDERABLES Final R esult [facility] [address] [place] [address] * (ABNORMAL) Basic metabolic panel (05/20/2021 12:25 AM STAFF FORESTER) Sodium 131(L) 135 - 145 mmol/L [facility] Potassium, pl 3.7 3.3 - 4.9 mmol/L [facility] Chloride 95(L) 97 - 110 mmol/L [facility] CO2 21(L) 22 - 32 mmol/L [facility] Anion gap 15 2 - 15 mmol/L [facility] BUN 47(H) 8 - 25 mg/dL [facility] Creatinine 1.05 0.80 - 1.30 mg/dL [facility] Glucose 173 70 - 199 mg/dL [facility] Comment: Interpretive Data Fasting glucose >/= 126 [...] interpretive data was last revised 2017. Calcium 8.4(L) 8.5 - 10.3 mg/dL [facility] Blood 05/20/2021 12:2 5 AM STAFF FORESTER 05/20/2021 12:35 AM STAFF FORESTER us Rhina Granados MD LAB BLOOD ORDERABLES Final R esult [facility] [address] [place] [address] * (ABNORMAL) Influenza A/B, RSV, and COVID-19 PCR Nasopharyngeal (05/19/2021 8:54 PM STAFF FORESTER) COVID-19 RNA Positive(A) Negative [facility] Comment: Interpretive data: Synonyms for this test include: PCR and NAAT . ??This test is performed using the [employer] Xpert Xpress assay. This is a real-time RT-PCR test intended for the qualitative detection of nucleic acid from the SARS-CoV-2. This assay has been reviewed by the FDA for Emergency Use Authorization (EUA). The performance characteristics have been verified by the performing laboratory. Results must be considered in the clinical context and a negative result does not rule out infection. Interpretive data last revised July 24, 2020. Influenza A RNA Negative Negative [facility] Influenza B RNA Negative Negative [facility] RSV RNA Negative Negative [facility] Comment: Interpretive data: This test is performed using the [employer] Xpert Assay. This is a multiplex, real- time reverse transcriptase PCR assay that detects influenza A, influenza B, and respiratory syncytial virus RNA. This assay has been cleared by the US Food and Drug Administration, and its performance characteristics have been verified by the performing laboratory. ?? Interpretive data last revised 2020. First COVID-19 test? No [facility] Employeed in healthcare? No [facility] Group care resident? No [facility] Hospitalized? Yes [facility] Is patient in ICU? Yes [facility] Symptomatic as defined by CDC? Yes [facility] Nasopharyngeal 05/19/2021 8: 54 PM STAFF FORESTER 05/19/2021 9:20 PM STAFF FORESTER Narrative [facility] - 05/19/2021 10:03 PM STAFF FORESTER Date of Symptom Onset->05/16/21 Reason for testing?->Symptomatic (not immunocompromised) Known exposure to confirmed or suspected COVID-19 case?->No Elena Kelly NP LAB MICROBIOLOGY - GENERAL ORDERABLES Final Result Performing Organization Address [facility] Co de Phone Number [facility] [address] [place] [address] * POCT glucose (05/19/2021 8:37 PM STAFF FORESTER) [facility] Signature Glucose, POC 165 70 - 199 mg/dL [facility] Blood 05/19/2021 8:37 PM STAFF FORESTER 05/19/2021 8:37 PM STAFF FORESTER us Rhina Granados MD LAB POCT ORDERABLES - DEVICE Final Result Performing Organization Address [facility] Phone Number [facility] [address] [place] [address] * Critical Care (05/19/2021 7:00 PM STAFF FORESTER) Narrative Jose Conti MD - 05/19/2021 7:00 PM STAFF FORESTER Elena Kelly NP ? 05/20/2021 ??6:22 AM Critical Care Performed by: Elena Kelly NP Authorized by: Elena Kelly NP CRITICAL CARE: ??Team: ??CHNE ??Shift: ??PM ??Level of Billing: ??Critical Care ??My time spent with this patient was 75 minutes: Critical Provider Statement: I have seen and examined the patient on this day of service. I have reviewed and confirmed the history, physical exam, laboratory and radiologic data as documented in the signed ICU note. I have reviewed and discussed my treatment plan with the ICU team and other medical/environmental remediation consultant staff, making frequent assessments and decisions regarding this patient's complex medical care. Critical Care time was exclusive of time spent performing separately billed procedures, treating other patients, and teaching. This time was in addition to and separate from critical care provided by other practitioners in my group on this day of service. Critical Care was necessary to treat or prevent imminent or life-threatening deterioration of the following conditions: ?Hypotension and ST-Elevation myocardial infarction (STEMI) ?? Pulmonary edema and Acute hypoxic respiratory failure ?? Acid-base disturbance, Acute kidney injury, Acute electrolyte derangement and Hypo- or Hyperglycemia ?? Acute blood loss anemia ?? Pneumonia ??This time was spent by me doing the following: ?Acute pain control ?? Interpretation of cardiac output measurements and Initiation/active titration of vasoactive medications ?? Active and frequent reassessment of respiratory status and oxygen requirements, Supplemental oxygen via mask and Incentive spirometry, pulmonary toilet ?? Active and frequent monitoring of intake/output and volumen status and Glycemic control ?? Active diuresis and Active repletion of electrolytes ?? Review of prior or current culture/gram stain results ?? Non-invasive positive pressure ventilator management ?? I spent time reviewing and interpreting data from bedside monitors, laboratory results, and imaging, I spent time discussing the management of this critically ill patient with consultants and the medical staff and I spent time documenting in the medical record us Elena Kelly NP IN CLINIC/BEDSIDE ORDERABLE S Final Result * eGFR (05/19/2021 4:45 PM STAFF FORESTER) [facility] eGFR 53 mL/min/1.7 3 m2 [facility] Comment: Interpretive Data Reference Interval Normal ?>/= 90 mL/min/1.73m2 Mildly decreased* ? 60 - 89 mL/min/1.73m2 Mildly to moderately decreased ?45 - 59 mL/min/1.73m2 Moderately to severely decreased ??30 - 44 mL/min/1.73m2 Severely decreased ?15 - 29 mL/min/1.73m2 Kidney Failure ?< 15 ??mL/min/1.73m2 *Relative to young adult level Estimated glomerular filtration rate is determined by the CKD-EPI equation recommended by the National Kidney Foundation (KDIGO 2012 Clinical Practice Guideline for the Evaluation and Management of Chronic Kidney Disease. Kidney Intnl Suppl Jun 2012;3:1). The CKD-EPI equation should not be used for patients with unstable renal function and has not been validated in children and those over 70. Current interpretive data was last reviewed 2020 Blood 05/19/2021 4:45 PM STAFF FORESTER 05/19/2021 4:45 PM STAFF FORESTER us Rhina Granados MD LAB BLOOD ORDERABLES Final R esult [facility] [address] [place] [address] * (ABNORMAL) Basic metabolic panel (05/19/2021 4:45 PM STAFF FORESTER) Sodium 130(L) 135 - 145 mmol/L [facility] Potassium, pl 4.0 3.3 - 4.9 mmol/L [facility] Chloride 91(L) 97 - 110 mmol/L [facility] CO2 21(L) 22 - 32 mmol/L [facility] Anion gap 18(H) 2 - 15 mmol/L [facility] BUN 51(H) 8 - 25 mg/dL [facility] Creatinine 1.44(H) 0.80 - 1.30 mg/dL [facility] Glucose 213(H) 70 - 199 mg/dL [facility] Comment: Interpretive Data Fasting glucose >/= 126 [...] 2017. Calcium 8.8 8.5 - 10.3 mg/dL [facility] Blood 05/19/2021 4:45 PM STAFF FORESTER 05/19/2021 4:45 PM STAFF FORESTER Rhina Granados MD LAB BLOOD ORDERABLES Final R esult [facility] [address] [place] [address] * (ABNORMAL) POCT glucose (05/19/2021 4:31 PM STAFF FORESTER) [facility] Signature Glucose, POC 203(H) 70 - 199 mg/dL [facility] Blood 05/19/2021 4:31 PM STAFF FORESTER 05/19/2021 4:31 PM STAFF FORESTER Rhina Granados MD LAB POCT ORDERABLES - DEVICE Final Result Performing Organization Address [facility] Co de Phone Number [facility] [address] [place] [address] * FL Sniff Test (05/19/2021 4:05 PM STAFF FORESTER) Anatomical Region Laterality Modality Head and Neck N/A Computed Radiogr aphy 05/20/2021 4:47 PM STAFF FORESTER Impressions 05/20/2021 4:47 PM STAFF FORESTER FINDINGS/IMPRESSION: Fluoroscopy was used while patient attempted deep inspiration and expiration with a single image obtained at each extreme and there was no significant diaphragm motion. Electronically signed by: Deandre Lomeli M.D. Narrative 05/20/2021 4:47 PM STAFF FORESTER EXAMINATION: FL SNIFF TEST HISTORY: Evaluate diaphragm [...] signed by: Deandre Lomeli M.D. us Caleb Toth PA IMG FLUOROSCOPY PROCE DURES Final Result * (ABNORMAL) POCT glucose (05/19/2021 1:00 PM STAFF FORESTER) Glucose, POC 239(H) 70 - 199 mg/dL [facility] Blood 05/19/2021 1:00 PM STAFF FORESTER 05/19/2021 1:00 PM STAFF FORESTER us Rhina Granados MD LAB POCT ORDERABLES - DEVICE Final Result [facility] [address] [place] [address] * CT Chest WO Contrast (05/19/2021 11:19 AM STAFF FORESTER) Anatomical Region Laterality Modality Body N/A Computed Tomogra phy 05/19/2021 4:12 PM STAFF FORESTER Impressions 05/19/2021 4:12 PM STAFF FORESTER 1. ??STATUS POST MEDIAN STERNOTOMY. 2. ??RIGHT-SIDED PICC CATHETER IN PLACE. 3. ??CORONARY ARTERY DISEASE. 4. ??MODERATE EMPHYSEMATOUS CHANGES IN THE LUNGS. 5. ??PATCHY ALVEOLAR INFILTRATE IN BOTH LUNGS. ??THIS CAN BE SEEN WITH A VIRAL-TYPE PNEUMONITIS. Electronically signed by: Humphrey Mojica M.D. Narrative 05/19/2021 4:12 PM STAFF FORESTER EXAMINATION: CT CHEST WO CONTRAST DATE: 05/19/2021 11:10 AM HISTORY: Respiratory illness. COMPARISON: Chest x-ray from 05/19/2021. TECHNIQUE: Transaxial computed tomographic images of the chest were obtained without intravenous contrast. Multiplanar coronal and sagittal images were reformatted. FINDINGS: There are postsurgical changes from a median sternotomy. ??There is a right-sided PICC catheter with tip in the right atrium. ??The heart size is normal. ??There is a small pericardial effusion. ??There is coronary artery calcification. ??No evidence of mediastinal adenopathy. The lungs are well-expanded. ??There are moderate emphysematous changes in the lungs. ??There is patchy alveolar infiltrate in both lungs, most pronounced in the lower lobes. ??No evidence of a pleural effusion. ??Scans through the upper abdomen are unremarkable. ??No significant bony abnormality is seen. Procedure Note Humphrey Mojica MD - 05/19/2021 EXAMINATION: CT CHEST WO CONTRAST DATE: 05/19/2021 11:10 AM HISTORY: Respiratory illness. COMPARISON: Chest x-ray from 05/19/2021. TECHNIQUE: Transaxial computed tomographic images of the chest were obtained without intravenous contrast. Multiplanar coronal and sagittal images were reformatted. FINDINGS: There are postsurgical changes from a median sternotomy. There is a right-sided PICC catheter with tip in the right atrium. The heart size is normal. There is a small pericardial effusion. There is coronary artery calcification. No evidence of mediastinal adenopathy. The lungs are well-expanded. There are moderate emphysematous changes in the lungs. There is patchy alveolar infiltrate in both lungs, most pronounced in the lower lobes. No evidence of a pleural effusion. Scans through the upper abdomen are unremarkable. No significant bony abnormality is seen. IMPRESSION: 1. STATUS POST MEDIAN STERNOTOMY. 2. RIGHT-SIDED PICC CATHETER IN PLACE. 3. CORONARY ARTERY DISEASE. 4. MODERATE EMPHYSEMATOUS CHANGES IN THE LUNGS. 5. PATCHY ALVEOLAR INFILTRATE IN BOTH LUNGS. THIS CAN BE SEEN WITH A VIRAL-TYPE PNEUMONITIS. Electronically signed by: Humphrey Mojica M.D. Rhina Granados MD IMG CT PROCEDURES Final Resu lt * Critical Care (05/19/2021 10:34 AM STAFF FORESTER) Narrative Alexandru Porter MD - 05/19/2021 10:34 AM STAFF FORESTER Caleb Toth PA ? 05/19/2021 ??4:21 PM Critical Care Performed by: Caleb Toth PA Authorized by: Caleb Toth PA CRITICAL CARE: ??Team: ??CHNE ??Shift: ??AM ??Level of Billing: ??Subsequent Hospital Visit Level 3 ??My time spent with this patient was 50 minutes: Critical Provider Statement: I have seen and examined the patient on this day of service. I have reviewed and confirmed the history, physical exam, laboratory, and radiographic data as documented in the ICU note. I have reviewed and discussed my treatment plan with the patient's team and other medical/environmental remediation consultant staff. This time was in addition to and separate from care provided by other practitioners on this day of service. ?? us Caleb MOODY IN CLINIC/BEDSIDE ORD ERABLES Final Result * POCT glucose (05/19/2021 7:18 AM STAFF FORESTER) Glucose, POC 174 70 - 199 mg/dL [facility] Blood 05/19/2021 7:18 AM STAFF FORESTER 05/19/2021 7:18 AM STAFF FORESTER us Rhina Granadso MD LAB POCT ORDERABLES - DEVICE Final Result [facility] [address] [place] [address] * XR Chest 1 View (05/19/2021 6:09 AM STAFF FORESTER) Anatomical Region Laterality Modality Body, Chest N/A Computed Radiogr aphy 05/19/2021 1:10 PM STAFF FORESTER Impressions 05/19/2021 1:10 PM STAFF FORESTER Persistent ill-defined patchy left perihilar upper and lower lobe alveolar infiltrate and mild on the right. Electronically signed by: Joie Bernardo M.D. Narrative 05/19/2021 1:10 PM STAFF FORESTER Examination: XR CHEST 1 VIEW Date: 05/19/2021 3:50 AM History: s/p CABG Comparison: 05/18/2021. Findings: Normal heart size, tortuous aorta and sternotomy is seen. Persistent ill-defined patchy left perihilar lingular/lower lobe alveolar infiltrate with mild peripheral right upper involvement is unchanged. There is no interval consolidation or effusion. ??Perihilar bronchovascular thickening is unchanged. Procedure Note Joie eBrnardo MD - 05/19/2021 Examination: XR CHEST 1 [...] signed by: Joie Bernardo M.D. Varsha Crowder ESCROW CLERK IMG XR PROCEDURES Final Re sult * (ABNORMAL) CBC without differential (05/19/2021 4:56 AM STAFF FORESTER) Pathologist [facility] WBC 8.0 3.8 - 9.9 K/cumm [facility] Hgb 9.8(L) 13.0 - 17.5 g/dL [facility] Hct 29.1(L) 38.9 - 50.3 % [facility] Plt 308 150 - 400 K/cumm [facility] MPV 11.7 9.1 - 12.3 fL [facility] RBC 3.25(L) 4.30 - 5.80 M/cumm [facility] MCV 89.5 81.3 - 96.4 fL [facility] MCH 30.2 27.1 - 33.3 pg [facility] MCHC 33.7 32.3 - 35.7 g/dL [facility] RDW CV 13.4 11.1 - 14.9 % [facility] RDW SD 44.2 35.7 - 48.1 fL [facility] NRBC abs 0.00 0.00 - 0.01 K/cumm [facility] Blood 05/19/2021 4:56 AM STAFF FORESTER 05/19/2021 4:56 AM STAFF FORESTER us Silviano Huddleston ESCROW CLERK LAB BLOOD ORDERABLES Final Result [facility] [address] [place] [address] * eGFR (05/19/2021 4:44 AM STAFF FORESTER) Pathologist [facility] eGFR 65 mL/min/1.7 3 m2 [facility] Comment: Interpretive Data Reference Interval Normal ?>/= 90 mL/min/1.73m2 Mildly decreased* ? 60 - 89 mL/min/1.73m2 Mildly to moderately decreased ?45 - 59 mL/min/1.73m2 Moderately to severely decreased ??30 - 44 mL/min/1.73m2 Severely decreased ?15 - 29 mL/min/1.73m2 Kidney Failure ?< 15 ??mL/min/1.73m2 *Relative to young adult level Estimated glomerular filtration rate is determined by the CKD-EPI equation recommended by the National Kidney Foundation (KDIGO 2012 Clinical Practice Guideline for the Evaluation and Management of Chronic Kidney Disease. Kidney Intnl Suppl Jun 2012;3:1). The CKD-EPI equation should not be used for patients with unstable renal function and has not been validated in children and those over 70. Current interpretive data was last reviewed 2020 Blood 05/19/2021 4:44 AM STAFF FORESTER 05/19/2021 5:05 AM STAFF FORESTER us Rhina Granados MD LAB BLOOD ORDERABLES Final R esult [facility] [address] Department of Laboratories [place], [place] [id number] * (ABNORMAL) Basic metabolic panel (05/19/2021 4:44 AM STAFF FORESTER) Sodium 132(L) 135 - 145 mmol/L [facility] Potassium, pl 3.7 3.3 - 4.9 mmol/L [facility] Chloride 95(L) 97 - 110 mmol/L [facility] CO2 21(L) 22 - 32 mmol/L [facility] Anion gap 16(H) 2 - 15 mmol/L [facility] BUN 47(H) 8 - 25 mg/dL [facility] Creatinine 1.21 0.80 - 1.30 mg/dL [facility] Glucose 156 70 - 199 mg/dL [facility] Comment: Interpretive Data Fasting glucose >/= 126 [...] interpretive data was last revised 2017. Calcium 8.4(L) 8.5 - 10.3 mg/dL [facility] Blood 05/19/2021 4:44 AM STAFF FORESTER 05/19/2021 4:55 AM STAFF FORESTER Rhina Granados MD LAB BLOOD ORDERABLES Final R esult Performing Organization Address [facility] Co de Phone Number [facility] [address] [place] [address] * Magnesium (05/19/2021 4:44 AM STAFF FORESTER) Magnesium 2.4 1.4 - 2.5 mg/dL [facility] Blood 05/19/2021 4:44 AM STAFF FORESTER 05/19/2021 4:55 AM STAFF FORESTER Silviano Huddleston NP LAB BLOOD ORDERABLES Final Result Performing Organization Address [facility] de Phone Number [facility] [address] [place] [address] * Phosphorus (05/19/2021 4:44 AM STAFF FORESTER) Phosphorus, pl 3.6 2.3 - 4.5 mg/dL [facility] Blood 05/19/2021 4:44 AM STAFF FORESTER 05/19/2021 4:55 AM STAFF FORESTER Silviano Huddleston NP LAB BLOOD ORDERABLES Final Result Performing Organization Address [facility] de Phone Number [facility] [address] [place] [address] * eGFR (05/19/2021 2:05 AM STAFF FORESTER) eGFR 54 mL/min/1.7 3 m2 [facility] Comment: Interpretive Data Reference Interval Normal ?>/= 90 mL/min/1.73m2 Mildly decreased* ? 60 - 89 mL/min/1.73m2 Mildly to moderately decreased ?45 - 59 mL/min/1.73m2 Moderately to severely decreased ??30 - 44 mL/min/1.73m2 Severely decreased ?15 - 29 mL/min/1.73m2 Kidney Failure ?< 15 ??mL/min/1.73m2 *Relative to young adult level Estimated glomerular filtration rate is determined by the CKD-EPI equation recommended by the National Kidney Foundation (KDIGO 2012 Clinical Practice Guideline for the Evaluation and Management of Chronic Kidney Disease. Kidney Intnl Suppl Jun 2012;3:1). The CKD-EPI equation should not be used for patients with unstable renal function and has not been validated in children and those over 70. Current interpretive data was last reviewed 2020 Blood 05/19/2021 2:05 AM STAFF FORESTER 05/19/2021 2:05 AM STAFF FORESTER Elena Kelly NP LAB BLOOD ORDERABLES Final Result [facility] [address] [place] [address] * Magnesium (05/19/2021 2:05 AM STAFF FORESTER) Pathologist [facility] Magnesium 2.4 1.4 - 2.5 mg/dL [facility] Blood 05/19/2021 2:05 AM STAFF FORESTER 05/19/2021 2:05 AM STAFF FORESTER us Elena Kelly NP LAB BLOOD ORDERABLES Final Result [facility] [address] [place] [address] * (ABNORMAL) Basic metabolic panel (05/19/2021 2:05 AM STAFF FORESTER) Sodium 131(L) 135 - 145 mmol/L [facility] Potassium, pl 3.9 3.3 - 4.9 mmol/L [facility] Chloride 95(L) 97 - 110 mmol/L [facility] CO2 21(L) 22 - 32 mmol/L [facility] Anion gap 15 2 - 15 mmol/L [facility] BUN 49(H) 8 - 25 mg/dL [facility] Creatinine 1.41(H) 0.80 - 1.30 mg/dL [facility] Glucose 180 70 - 199 mg/dL [facility] Comment: Interpretive Data Fasting glucose >/= 126 [...] interpretive data was last revised 2017. Calcium 8.3(L) 8.5 - 10.3 mg/dL [facility] Blood 05/19/2021 2:05 AM STAFF FORESTER 05/19/2021 2:05 AM STAFF FORESTER Elena Kelly NP LAB BLOOD ORDERABLES Final Result Performing Organization Address [facility]/ZIP Co de Phone Number [facility] [address] [place] [address] * POCT glucose (05/19/2021 1:43 AM STAFF FORESTER) Glucose, POC 166 70 - 199 mg/dL [facility] Blood 05/19/2021 1:43 AM STAFF FORESTER 05/19/2021 1:43 AM STAFF FORESTER Rhina Granados MD LAB POCT ORDERABLES - DEVICE Final Result Performing Organization Address [facility] Co de Phone Number [facility] [address] [place] [address] * Potassium, whole blood (05/19/2021 1:28 AM STAFF FORESTER) Potassium, bld 3.8 3.3 - 4.9 mmol/L [facility] Comment: Interpretive Data Unable to assess hemolysis. ??Invitro hemolysis causes falsely elevated potassium. Current Interpretive Data was last revised on 2020. Blood 05/19/2021 1:28 AM STAFF FORESTER 05/19/2021 2:04 AM STAFF FORESTER Elena Kelly NP LAB BLOOD ORDERABLES Final Result Performing Organization Address [facility] Co de Phone Number [facility] [address] [place] [address] * (ABNORMAL) D-dimer, quantitative (05/18/2021 10:01 PM STAFF FORESTER) D-Dimer 1,998(H) <=499 ng/mL FEU [facility] Comment: Interpretive data FDA approved the D-dimer, in conjunction with a low or moderate pretest probability score, to exclude venous thromboembolic events (VTE) (PE and DVT) in outpatients when the D-dimer result is < 500 ng/ml FEU. ?? Evidence supports using an age-adjusted D-dimer cut-off for outpatients older than 50 (age x 10) to improve specificity without sacrificing sensitivity. Example: age 68, VTE cut-off 680 ng/ml FEU. References; Jayda HT et al. Brit Med J. 2013;346:f2492. Mando et al. Annals Int Med. 2015;163:701-11. Current interpretive data was last revised on 2019. Blood 05/18/2021 10:0 1 PM STAFF FORESTER 05/18/2021 10:01 PM STAFF FORESTER Elena Kelly NP LAB BLOOD ORDERABLES Final Result Performing Organization Address [facility] Co de Phone Number [facility] [address] [place] [address] * (ABNORMAL) Hepatic function panel (05/18/2021 9:37 PM STAFF FORESTER) Bilirubin, total 0.6 0.1 - 1.2 mg/dL [facility] Bilirubin, direct 0.2 0.1 - 0.3 mg/dL [facility] Protein, pl 7.1 6.5 - 8.5 g/dL [facility] Albumin 3.6 3.5 - 5.0 g/dL [facility] Alk phos 86 40 - 130 Units/L [facility] ALT 18 7 - 55 Units/L [facility] AST 60(H) 10 - 50 Units/L [facility] Blood 05/18/2021 9:37 PM STAFF FORESTER 05/18/2021 10:00 PM STAFF FORESTER Elena Kelly NP LAB BLOOD ORDERABLES Final Result Performing Organization Address [facility] Co de Phone Number [facility] [address] [facility] [place] [address] * Beta-hydroxybutyrate (05/18/2021 9:37 PM STAFF FORESTER) Pathologist [facility] Beta-Hydroxybut yrate 0.4 <=0.5 mmol/L [facility] Blood 05/18/2021 9:37 PM STAFF FORESTER 05/18/2021 10:00 PM STAFF FORESTER Elena Kelly NP LAB BLOOD ORDERABLES Final Result Performing Organization Address [facility] Co de Phone Number [facility] [address] [facility] [place] [address] * Lactate (05/18/2021 9:37 PM STAFF FORESTER) Pathologist [facility] Lactate 0.9 0.7 - 2.0 mmol/L [facility] Blood 05/18/2021 9:37 PM STAFF FORESTER 05/18/2021 10:00 PM STAFF FORESTER Elena Kelly NP LAB BLOOD ORDERABLES Final Result Performing Organization Address [facility] Co de Phone Number [facility] [address] [facility] [place] [address] * (ABNORMAL) POCT glucose (05/18/2021 8:00 PM STAFF FORESTER) [facility] Glucose, POC 200(H) 70 - 199 mg/dL [facility] Blood 05/18/2021 8:00 PM STAFF FORESTER 05/18/2021 8:00 PM STAFF FORESTER Rhina Granados MD LAB POCT ORDERABLES - DEVICE Final Result Performing Organization Address [facility] de Phone Number [facility] [address] [address] [facility] [place] [address] * (ABNORMAL) Blood gas, arterial (05/18/2021 7:53 PM STAFF FORESTER) [facility] pH, Art 7.45 7.35 - 7.45 [facility] PCO2, Arterial 32(L) 35 - 45 mmHg [facility] PO2, Arterial 58(L) 83 - 108 mmHg [facility] HCO3 Art (Calculated) 23 20 - 30 mmol/L [facility] BE, art -2 mmol/L [facility] Comment: Interpretive Data No Reference Range Established Current Interpretive Data was last revised on 2017 O2 Sat Art (Measured) 89(L) 90 - 95 % [facility] Blood 05/18/2021 7:53 PM STAFF FORESTER 05/18/2021 8:24 PM STAFF FORESTER Elena Kelly NP LAB BLOOD ORDERABLES Final Result Performing Organization Address [facility] Co de Phone Number [facility] [address] [address] [facility] [place] [address] * Critical Care (05/18/2021 7:00 PM STAFF FORESTER) Narrative Jose Conti MD - 05/18/2021 7:00 PM STAFF FORESTER Elena Kelly NP ? 05/19/2021 ??6:16 AM Critical Care Performed by: Elena Kelly NP Authorized by: Elena Kelly NP CRITICAL CARE: ??Team: ??CHNE ??Shift: ??PM ??Level of Billing: ??Critical Care ??My time spent with this patient was 75 minutes: Critical Provider Statement: I have seen and examined the patient on this day of service. I have reviewed and confirmed the history, physical exam, laboratory and radiologic data as documented in the signed ICU note. I have reviewed and discussed my treatment plan with the ICU team and other medical/environmental remediation consultant staff, making frequent assessments and decisions regarding this patient's complex medical care. Critical Care time was exclusive of time spent performing separately billed procedures, treating other patients, and teaching. This time was in addition to and separate from critical care provided by other practitioners in my group on this day of service. Critical Care was necessary to treat or prevent imminent or life-threatening deterioration of the following conditions: ? Hypotension and ST-Elevation myocardial infarction (STEMI) ?? Pulmonary edema and Acute hypoxic respiratory failure ?? Acid-base disturbance, Acute kidney injury, Acute electrolyte derangement and Hypo- or Hyperglycemia ?? Acute blood loss anemia ??This time was spent by me doing the following: ?Acute pain control ?? Interpretation of cardiac output measurements and Initiation/active titration of vasoactive medications ?? Active and frequent reassessment of respiratory status and oxygen requirements, Supplemental oxygen via mask and Incentive spirometry, pulmonary toilet ?? Active and frequent monitoring of intake/output and volumen status and Glycemic control ?? Active diuresis and Active repletion of electrolytes ?? Review of prior or current culture/gram stain results ?? Non-invasive positive pressure ventilator management ?? I spent time reviewing and interpreting data from bedside monitors, laboratory results, and imaging, I spent time discussing the management of this critically ill patient with consultants and the medical staff and I spent time documenting in the medical record us Elena Kelly NP IN CLINIC/BEDSIDE ORDERABLE S Final Result * eGFR (05/18/2021 5:30 PM STAFF FORESTER) eGFR 40 mL/min/1.7 3 m2 [facility] Comment: Interpretive Data Reference Interval Normal ?>/= 90 mL/min/1.73m2 Mildly decreased* ? 60 - 89 mL/min/1.73m2 Mildly to moderately decreased ?45 - 59 mL/min/1.73m2 Moderately to severely decreased ??30 - 44 mL/min/1.73m2 Severely decreased ?15 - 29 mL/min/1.73m2 Kidney Failure ?< 15 ??mL/min/1.73m2 *Relative to young adult level Estimated glomerular filtration rate is determined by the CKD-EPI equation recommended by the National Kidney Foundation (KDIGO 2012 Clinical Practice Guideline for the Evaluation and Management of Chronic Kidney Disease. Kidney Intnl Suppl Jun 2012;3:1). The CKD-EPI equation should not be used for patients with unstable renal function and has not been validated in children and those over 70. Current interpretive data was last reviewed 2020 Blood 05/18/2021 5:30 PM STAFF FORESTER 05/18/2021 5:38 PM STAFF FORESTER us Rhina Granados MD LAB BLOOD ORDERABLES Final R esult [facility] [address] [place] [address] * eGFR (05/18/2021 5:30 PM STAFF FORESTER) eGFR 39 mL/min/1.7 3 m2 [facility] Comment: Interpretive Data Reference Interval Normal ?>/= 90 mL/min/1.73m2 Mildly decreased* ? 60 - 89 mL/min/1.73m2 Mildly to moderately decreased ?45 - 59 mL/min/1.73m2 Moderately to severely decreased ??30 - 44 mL/min/1.73m2 Severely decreased ?15 - 29 mL/min/1.73m2 Kidney Failure ?< 15 ??mL/min/1.73m2 *Relative to young adult level Estimated glomerular filtration rate is determined by the CKD-EPI equation recommended by the National Kidney Foundation (KDIGO 2012 Clinical Practice Guideline for the Evaluation and Management of Chronic Kidney Disease. Kidney Intnl Suppl Jun 2012;3:1). The CKD-EPI equation should not be used for patients with unstable renal function and has not been validated in children and those over 70. Current interpretive data was last reviewed 2020 Blood 05/18/2021 5:30 PM STAFF FORESTER 05/18/2021 6:04 PM STAFF FORESTER us Rhina Granados MD LAB BLOOD ORDERABLES Final R esult Performing Organization Address [facility] Co de Phone Number [facility] [address] [place] [address] * TSH reflex to free T4 (05/18/2021 5:30 PM STAFF FORESTER) TSH 1.46 0.30 - 4.20 mcIUnit/mL [facility] Blood 05/18/2021 5:30 PM STAFF FORESTER 05/18/2021 5:38 PM STAFF FORESTER us Caleb MOODY LAB BLOOD ORDERABLES Final Result Performing Organization Address [facility] Co de Phone Number [facility] [address] [place] [address] * Magnesium (05/18/2021 5:30 PM STAFF FORESTER) Pathologist [facility] Magnesium 2.5 1.4 - 2.5 mg/dL [facility] Blood 05/18/2021 5:30 PM STAFF FORESTER 05/18/2021 5:38 PM STAFF FORESTER Rhina Granados MD LAB BLOOD ORDERABLES Final R esult Performing Organization Address [facility] Co de Phone Number [facility] [address] [place] [address] * (ABNORMAL) Basic metabolic panel (05/18/2021 5:30 PM STAFF FORESTER) Sodium 133(L) 135 - 145 mmol/L [facility] Potassium, pl 4.4 3.3 - 4.9 mmol/L [facility] Chloride 95(L) 97 - 110 mmol/L [facility] CO2 22 22 - 32 mmol/L [facility] Anion gap 16(H) 2 - 15 mmol/L [facility] BUN 51(H) 8 - 25 mg/dL [facility] Creatinine 1.85(H) 0.80 - 1.30 mg/dL [facility] Glucose 143 70 - 199 mg/dL [facility] Comment: Interpretive Data Fasting glucose >/= 126 [...] interpretive data was last revised 2017. Calcium 8.3(L) 8.5 - 10.3 mg/dL [facility] Blood 05/18/2021 5:30 PM STAFF FORESTER 05/18/2021 5:38 PM STAFF FORESTER Rhina Granados MD LAB BLOOD ORDERABLES Final R esult Performing Organization Address [facility] de Phone Number [facility] [address] [place] [address] * (ABNORMAL) Basic metabolic panel (05/18/2021 5:30 PM STAFF FORESTER) Sodium 132(L) 135 - 145 mmol/L [facility] Potassium, pl 4.3 3.3 - 4.9 mmol/L [facility] Chloride 94(L) 97 - 110 mmol/L [facility] CO2 21(L) 22 - 32 mmol/L [facility] Anion gap 17(H) 2 - 15 mmol/L [facility] BUN 52(H) 8 - 25 mg/dL [facility] Creatinine 1.82(H) 0.80 - 1.30 mg/dL [facility] Glucose 143 70 - 199 mg/dL [facility] Comment: Interpretive Data Fasting glucose >/= 126 [...] interpretive data was last revised 2017. Calcium 8.3(L) 8.5 - 10.3 mg/dL [facility] Blood 05/18/2021 5:30 PM STAFF FORESTER 05/18/2021 5:38 PM STAFF FORESTER Rhina Granados MD LAB BLOOD ORDERABLES Final R esult [facility] [address] [place] [address] * POCT glucose (05/18/2021 5:22 PM STAFF FORESTER) Glucose, POC 141 70 - 199 mg/dL [facility] Blood 05/18/2021 5:22 PM STAFF FORESTER 05/18/2021 5:22 PM STAFF FORESTER Rhina Granados MD LAB POCT ORDERABLES - DEVICE Final Result Performing Organization Address [facility] Co de Phone Number [facility] [address] [address] [facility] [place] [address] * (ABNORMAL) Cortisol (05/18/2021 2:32 PM STAFF FORESTER) Cortisol >63.0(H) 4.8 - 19.5 mcg/dl [facility] Comment: Interpretive Data Normal Range: ??4.8 - 19.5 mcg/dL; ??Evening: ??Half of morning value. ?? This analyte undergoes marked diurnal variation. ??Ranges indicated apply to morning specimens. ?? Current interpretive data was last revised 2018. Blood 05/18/2021 2:32 PM STAFF FORESTER 05/18/2021 2:32 PM STAFF FORESTER Narrative [facility] - 05/18/2021 3:07 PM STAFF FORESTER Second draw 30 minutes after administration of cosyntropin. Caleb MOODY LAB BLOOD ORDERABLES Final Result Performing Organization Address [facility] Co de Phone Number [facility] [address] [facility] [place] [address] * (ABNORMAL) Cortisol (05/18/2021 1:51 PM STAFF FORESTER) Cortisol 53.1(H) 4.8 - 19.5 mcg/dl [facility] Comment: Interpretive Data Normal Range: ??4.8 - 19.5 mcg/dL; ??Evening: ??Half of morning value. ?? This analyte undergoes marked diurnal variation. ??Ranges indicated apply to morning specimens. ?? Current interpretive data was last revised 2018. Blood 05/18/2021 1:51 PM STAFF FORESTER 05/18/2021 1:54 PM STAFF FORESTER Narrative HENRIK - 05/18/2021 2:32 PM STAFF FORESTER Third draw 60 minutes after administration of cosyntropin. Caleb MOODY LAB BLOOD ORDERABLES Final Result [facility] [address] [place] [address] * POCT glucose (05/18/2021 1:21 PM STAFF FORESTER) Glucose, POC 197 70 - 199 mg/dL [facility] Blood 05/18/2021 1:21 PM STAFF FORESTER 05/18/2021 1:21 PM STAFF FORESTER Rhina Granados MD LAB POCT ORDERABLES - DEVICE Final Result Performing Organization Address [facility] Co de Phone Number [facility]K DON [address] [place] [address] * eGFR (05/18/2021 12:36 PM STAFF FORESTER) eGFR 42 mL/min/1.7 3 m2 [facility] Comment: Interpretive Data Reference Interval Normal ?>/= 90 mL/min/1.73m2 Mildly decreased* ? 60 - 89 mL/min/1.73m2 Mildly to moderately decreased ?45 - 59 mL/min/1.73m2 Moderately to severely decreased ??30 - 44 mL/min/1.73m2 Severely decreased ?15 - 29 mL/min/1.73m2 Kidney Failure ?< 15 ??mL/min/1.73m2 *Relative to young adult level Estimated glomerular filtration rate is determined by the CKD-EPI equation recommended by the National Kidney Foundation (KDIGO 2012 Clinical Practice Guideline for the Evaluation and Management of Chronic Kidney Disease. Kidney Intnl Suppl Jun 2012;3:1). The CKD-EPI equation should not be used for patients with unstable renal function and has not been validated in children and those over 70. Current interpretive data was last reviewed 2020 Blood 05/18/2021 12:3 6 PM STAFF FORESTER 05/18/2021 12:50 PM STAFF FORESTER us hRina Granados MD LAB BLOOD ORDERABLES Final R esult Performing Organization Address [facility] Co de Phone Number [facility] DON [address] [place] [address] * (ABNORMAL) Cortisol (05/18/2021 12:36 PM STAFF FORESTER) [facility] Cortisol 25.5(H) 4.8 - 19.5 mcg/dl [facility] Comment: Interpretive Data Normal Range: ??4.8 - 19.5 mcg/dL; ??Evening: ??Half of morning value. ?? This analyte undergoes marked diurnal variation. ??Ranges indicated apply to morning specimens. ?? Current interpretive data was last revised 2018. Blood 05/18/2021 12:3 6 PM STAFF FORESTER 05/18/2021 12:43 PM STAFF FORESTER Narrative [facility] - 05/18/2021 1:12 PM STAFF FORESTER First draw prior to administration of cosyntropin. Caleb MOODY LAB BLOOD ORDERABLES Final Result Performing Organization Address [facility] de Phone Number [facility] DON [address] [place] [address] * (ABNORMAL) Basic metabolic panel (05/18/2021 12:36 PM STAFF FORESTER) Pathologist [facility] Sodium 130(L) 135 - 145 mmol/L [facility] Potassium, pl 3.7 3.3 - 4.9 mmol/L [facility] Chloride 93(L) 97 - 110 mmol/L [facility] CO2 20(L) 22 - 32 mmol/L [facility] Anion gap 17(H) 2 - 15 mmol/L [facility] BUN 48(H) 8 - 25 mg/dL [facility] Creatinine 1.73(H) 0.80 - 1.30 mg/dL [facility] Glucose 239(H) 70 - 199 mg/dL [facility] Comment: Interpretive Data Fasting glucose >/= 126 [...] interpretive data was last revised 2017. Calcium 8.3(L) 8.5 - 10.3 mg/dL [facility] Blood 05/18/2021 12:3 6 PM STAFF FORESTER 05/18/2021 12:43 PM STAFF FORESTER Rhina Granados MD LAB BLOOD ORDERABLES Final R esult Performing Organization Address City/[facility]/ZIP Co de Phone Number [facility]K DON [address] [place] [address] * (ABNORMAL) POCT glucose (05/18/2021 12:15 PM STAFF FORESTER) Glucose, POC 230(H) 70 - 199 mg/dL [facility]K Blood 05/18/2021 12:1 5 PM STAFF FORESTER 05/18/2021 12:15 PM STAFF FORESTER Rhina Granados MD LAB POCT ORDERABLES - DEVICE Final Result Performing Organization Address City/[facility]/ZIP Co de Phone Number HENRIK [place]ORENC[place] [address] [place] [address] * NM Pulmonary Perfusion Imaging (05/18/2021 11:54 AM STAFF FORESTER) Anatomical Region Laterality Modality Body N/A Nuclear Medicine 05/18/2021 1:39 PM STAFF FORESTER Impressions 05/18/2021 1:39 PM STAFF FORESTER Findings described above are consistent with low probability of pulmonary embolus. ??The patient has mild vascular congestion. Electronically signed by: Elvira Blackman M.D. Narrative 05/18/2021 1:39 PM STAFF FORESTER EXAMINATION: NM PULMONARY PERFUSION IMAGING HISTORY: The patient is a 60-year-old male who presents with chest pain. TECHNIQUE: Following the intravenous administration of 5.4 mCi of technetium 99m MAA, static images of the right and left lungs were obtained with portable technique in AP and both oblique projections. ??Comparison is made with the chest radiograph dated 05/18/2021 FINDINGS: There is no segmental or subsegmental perfusion defects seen. Comparison with an accompanying chest radiograph reveals mild degree of pulmonary vascular congestion. Procedure Note Elvira Blackman MD - 05/18/2021 EXAMINATION: NM PULMONARY PERFUSION IMAGING HISTORY: The patient is a 60-year-old male who presents with chest pain. TECHNIQUE: Following the intravenous administration of 5.4 mCi of technetium 99m MAA, static images of the right and left lungs were obtained with portable technique in AP and both oblique projections. Comparison is made with the chest radiograph dated 05/18/2021 FINDINGS: There is no segmental or subsegmental perfusion defects seen. Comparison with an accompanying chest radiograph reveals mild degree of pulmonary vascular congestion. IMPRESSION: Findings described above are consistent with low probability of pulmonary embolus. The patient has mild vascular congestion. Electronically signed by: Elvira Blackman M.D. Rhina Granados MD [facility] PROCED[facility] Final Resu lt * (ABNORMAL) POCT glucose (05/18/2021 11:06 AM STAFF FORESTER) [facility] Glucose, POC 209(H) 70 - 199 mg/dL [facility] DON Blood 05/18/2021 11:0 6 AM STAFF FORESTER 05/18/2021 11:06 AM STAFF FORESTER Rhina Granados MD LAB POCT ORDERABLES - DEVICE Final Result [facility] DON [address] Department [place] [address] * Critical Care (05/18/2021 10:32 AM STAFF FORESTER) Narrative Alexandru Porter MD - 05/18/2021 10:32 AM STAFF FORESTER Caleb Toth PA ? 05/18/2021 ??5:43 PM Critical Care Performed by: Caleb Toth PA Authorized by: Caleb Toth PA CRITICAL CARE: ??Team: ??CHNE ??Shift: ??AM ??Level of Billing: ??Critical Care ??My time spent with this patient was 80 minutes: Critical Provider Statement: I have seen and examined the patient on this day of service. I have reviewed and confirmed the history, physical exam, laboratory and radiologic data as documented in the signed ICU note. I have reviewed and discussed my treatment plan with the ICU team and other medical/environmental remediation consultant staff, making frequent assessments and decisions regarding this patient's complex medical care. Critical Care time was exclusive of time spent performing separately billed procedures, treating other patients, and teaching. This time was in addition to and separate from critical care provided by other practitioners in my group on this day of service. Critical Care was necessary to treat or prevent imminent or life-threatening deterioration of the following conditions: ? Undifferentiated shock ?? Acute hypoxic respiratory failure ??This time was spent by me doing the following: ? Serial bedside patient exams and Serial laboratory checks ?? Initiation/active titration of vasoactive medications ?? Active and frequent reassessment of respiratory status and oxygen requirements ?? I spent time discussing the management of this critically ill patient with consultants and the medical staff, I spent time documenting in the medical record and I spent time reviewing and interpreting data from bedside monitors, laboratory results, and imaging us Caleb MOODY IN CLINIC/BEDSIDE ORD ERABLES Final Result * POCT glucose (05/18/2021 9:04 AM STAFF FORESTER) Glucose, POC 167 70 - 199 mg/dL [facility] DON Blood 05/18/2021 9:04 AM STAFF FORESTER 05/18/2021 9:04 AM STAFF FORESTER us Rhina Granados MD LAB POCT ORDERABLES - DEVICE Final Result [facility] DON [address] [place] [address] * POCT glucose (05/18/2021 8:01 AM STAFF FORESTER) Glucose, POC 147 70 - 199 mg/dL [facility] Blood 05/18/2021 8:01 AM STAFF FORESTER 05/18/2021 8:01 AM STAFF FORESTER Rhina Granados MD LAB POCT ORDERABLES - DEVICE Final Result Performing Organization Address [facility] Co de Phone Number [facility] [address] [place] [place] [address] * POCT glucose (05/18/2021 6:56 AM STAFF FORESTER) Glucose, POC 131 70 - 199 mg/dL [facility] Blood 05/18/2021 6:56 AM STAFF FORESTER 05/18/2021 6:56 AM STAFF FORESTER Rhina Granados MD LAB POCT ORDERABLES - DEVICE Final Result Performing Organization Address [facility] de Phone Number [facility] [address] [facility] [place] [address] * eGFR (05/18/2021 6:19 AM STAFF FORESTER) eGFR 56 mL/min/1.7 3 m2 [facility] Comment: Interpretive Data Reference Interval Normal ?>/= 90 mL/min/1.73m2 Mildly decreased* ? 60 - 89 mL/min/1.73m2 Mildly to moderately decreased ?45 - 59 mL/min/1.73m2 Moderately to severely decreased ??30 - 44 mL/min/1.73m2 Severely decreased ?15 - 29 mL/min/1.73m2 Kidney Failure ?< 15 ??mL/min/1.73m2 *Relative to young adult level Estimated glomerular filtration rate is determined by the CKD-EPI equation recommended by the National Kidney Foundation (KDIGO 2012 Clinical Practice Guideline for the Evaluation and Management of Chronic Kidney Disease. Kidney Intnl Suppl Jun 2012;3:1). The CKD-EPI equation should not be used for patients with unstable renal function and has not been validated in children and those over 70. Current interpretive data was last reviewed 2020 Blood 05/18/2021 6:19 AM STAFF FORESTER 05/18/2021 6:19 AM STAFF FORESTER us Rhina Granados MD LAB BLOOD ORDERABLES Final R esult [facility] DON [address] [place] [address] * (ABNORMAL) Pro B-type natriuretic peptide (05/18/2021 6:19 AM STAFF FORESTER) NT-proBNP 2,488(H) <=300 pg/mL [facility] DON Comment: Interpretive Comments: A. Dyspnea in Acute Care Setting All Ages: ?< 300 pg/ml, acute heart failure unlikely. < 50 yrs: ?300 - 450 pg/ml, further investigation warranted. ? > 450 pg/ml, acute heart failure likely. 50 - 74 yrs: ? 300 - 900 pg/ml, further investigation warranted. ? > 900 pg/ml, acute heart failure likely . > or = 75 yrs: ? 450 - 1800 pg/ml, further investigation warranted. ? > 1800 pg/ml, acute heart failure likely. B. Non-acute Setting < 75 yrs ? < 125 pg/ml, rules out heart failure. ? > or = 125 pg/ml, further investigation warranted. > or = 75 yrs ?< 450 pg/ml, rules out heart failure. ? > or = 450 pg/ml, further investigation warranted. - Knowledge of each individual patient's NT-proBNP range may be more useful than using similar cut-points for every patient. Please note that marked elevations in NT-proBNP levels may be observed in state other than Left Ventricular Congestive Failure, including: acute coronary syndromes, right heart strain/failure (including pulmonary embolism and cor pulmonale), critical illness, renal failure, as well as advanced age. - References: 1. Matt ABBOTT et.al. Eur Heart J. 2006:27:330-337. 2. Eligio TAVARES, Luis Alberto DURANT. J. AM Daisy Cardiol: Cardiovasc Imag. 2009;2: 216- 225. Interpretive Data Last Revised Date: 2018. Blood 05/18/2021 6:19 AM STAFF FORESTER 05/18/2021 10:39 AM STAFF FORESTER us Rhina Granados MD LAB BLOOD ORDERABLES Final R esult [facility] [address] [place] [address] * (ABNORMAL) Basic metabolic panel (05/18/2021 6:19 AM STAFF FORESTER) Sodium 132(L) 135 - 145 mmol/L [facility] Potassium, pl 3.1(L) 3.3 - 4.9 mmol/L [facility] Comment:Hemolysis present. R esults may be affected. Chloride 95(L) 97 - 110 mmol/L [facility] CO2 21(L) 22 - 32 mmol/L [facility] Anion gap 16(H) 2 - 15 mmol/L [facility] BUN 44(H) 8 - 25 mg/dL [facility] Creatinine 1.38(H) 0.80 - 1.30 mg/dL [facility] Glucose 145 70 - 199 mg/dL [facility] Comment: Interpretive Data Fasting glucose >/= 126 [...] interpretive data was last revised 2017. Calcium 8.1(L) 8.5 - 10.3 mg/dL [facility] Blood 05/18/2021 6:19 AM STAFF FORESTER 05/18/2021 6:19 AM STAFF FORESTER Rhina Granados MD LAB BLOOD ORDERABLES Final R esult Performing Organization Address [facility] Co de Phone Number [facility]K DON [address] [place] [address] * POCT glucose (05/18/2021 5:52 AM STAFF FORESTER) [facility] Signature Glucose, POC 140 70 - 199 mg/dL [facility] Blood 05/18/2021 5:52 AM STAFF FORESTER 05/18/2021 5:52 AM STAFF FORESTER Rhina Granados MD LAB POCT ORDERABLES - DEVICE Final Result Performing Organization Address [facility] Co de Phone Number H[facility]RIK [address] [place] [address] * XR Chest 1 View (05/18/2021 5:48 AM STAFF FORESTER) Anatomical Region Laterality Modality Body, Chest N/A Computed Radiogr aphy 05/18/2021 3:15 PM STAFF FORESTER Impressions 05/18/2021 3:15 PM STAFF FORESTER Postoperative and chronic changes. Electronically signed by: Deandre Lomeli M.D. Narrative 05/18/2021 3:15 PM STAFF FORESTER EXAMINATION: XR CHEST 1 VIEW HISTORY: The patient is a 60-year-old male who presents with hypoxia. Comparison is made with the previous study dated 05/17/2021 TECHNIQUE: AP portable view of the chest. FINDINGS: Borderline Cardiomegaly with aortic atherosclerosis and postsurgical change. ??No significant vascular congestion. ??Patchy peripheral infiltrate or scar slightly more on the left.. ??The tip of a retracted [place] catheter is in the superior vena cava. [...] the left.. The tip of a retracted [place]Rad[place] catheter is in the superior vena cava. IMPRESSION: Postoperative and chronic changes. Electronically signed by: Deandre Lomeli M.D. us Varsha Crowder ESCROW CLERK IMG XR PROCEDURES Final Re sult * POCT glucose (05/18/2021 4:58 AM STAFF FORESTER) Glucose, POC 152 70 - 199 mg/dL [facility] Blood 05/18/2021 4:58 AM STAFF FORESTER 05/18/2021 4:58 AM STAFF FORESTER Rhina Granados MD LAB POCT ORDERABLES - DEVICE Final Result Performing Organization Address [facility] Co de Phone Number [facility] [address] [place] [address] * POCT glucose (05/18/2021 3:57 AM STAFF FORESTER) Glucose, POC 140 70 - 199 mg/dL [facility] Blood 05/18/2021 3:57 AM STAFF FORESTER 05/18/2021 3:57 AM STAFF FORESTER Rhina Granados MD LAB POCT ORDERABLES - DEVICE Final Result Performing Organization Address [facility] Co de Phone Number [facility]K DON [address] [place] [address] * POCT glucose (05/18/2021 3:01 AM STAFF FORESTER) Glucose, POC 118 70 - 199 mg/dL [facility] Blood 05/18/2021 3:01 AM STAFF FORESTER 05/18/2021 3:01 AM STAFF FORESTER Rhina Granados MD LAB POCT ORDERABLES - DEVICE Final Result Performing Organization Address [facility] de Phone Number [facility]K DON [address] [place] [address] * eGFR (05/18/2021 2:04 AM STAFF FORESTER) eGFR 45 mL/min/1.7 3 m2 [facility] Comment: Interpretive Data Reference Interval Normal ?>/= 90 mL/min/1.73m2 Mildly decreased* ? 60 - 89 mL/min/1.73m2 Mildly to moderately decreased ?45 - 59 mL/min/1.73m2 Moderately to severely decreased ??30 - 44 mL/min/1.73m2 Severely decreased ?15 - 29 mL/min/1.73m2 Kidney Failure ?< 15 ??mL/min/1.73m2 *Relative to young adult level Estimated glomerular filtration rate is determined by the CKD-EPI equation recommended by the National Kidney Foundation (KDIGO 2012 Clinical Practice Guideline for the Evaluation and Management of Chronic Kidney Disease. Kidney Intnl Suppl Jun 2012;3:1). The CKD-EPI equation should not be used for patients with unstable renal function and has not been validated in children and those over 70. Current interpretive data was last reviewed 2020 Blood 05/18/2021 2:04 AM STAFF FORESTER 05/18/2021 2:18 AM STAFF FORESTER us Rhina Granados MD LAB BLOOD ORDERABLES Final R esult [facility] [address] [place] [address] * (ABNORMAL) CBC without differential (05/18/2021 2:04 AM STAFF FORESTER) WBC 7.6 3.8 - 9.9 K/cumm [facility] Hgb 11.2(L) 13.0 - 17.5 g/dL [facility] Hct 33.0(L) 38.9 - 50.3 % [facility] Plt 278 150 - 400 K/cumm [facility] MPV 12.2 9.1 - 12.3 fL [facility] RBC 3.71(L) 4.30 - 5.80 M/cumm [facility] MCV 88.9 81.3 - 96.4 fL [facility] MCH 30.2 27.1 - 33.3 pg [facility] MCHC 33.9 32.3 - 35.7 g/dL [facility] RDW CV 13.5 11.1 - 14.9 % [facility] RDW SD 44.2 35.7 - 48.1 fL [facility] NRBC abs 0.00 0.00 - 0.01 K/cumm [facility] Blood 05/18/2021 2:04 AM STAFF FORESTER 05/18/2021 2:09 AM STAFF FORESTER us Silviano Huddleston NP LAB BLOOD ORDERABLES Final Result [facility] [address] [place] [address] * (ABNORMAL) Magnesium (05/18/2021 2:04 AM STAFF FORESTER) Magnesium 2.7(H) 1.4 - 2.5 mg/dL [facility] Blood 05/18/2021 2:04 AM STAFF FORESTER 05/18/2021 2:09 AM STAFF FORESTER Silviano Saldivar Flaquito ESCROW CLERK LAB BLOOD ORDERABLES Final Result Performing Organization Address City/[facility]/ZIP Co de Phone Number [facility] DON [address] [place] [address] * (ABNORMAL) Phosphorus (05/18/2021 2:04 AM STAFF FORESTER) Phosphorus, pl 4.6(H) 2.3 - 4.5 mg/dL [facility] Blood 05/18/2021 2:04 AM STAFF FORESTER 05/18/2021 2:09 AM STAFF FORESTER Silviano Saldivar Flaquito ESCROW CLERK LAB BLOOD ORDERABLES Final Result Performing Organization Address [facility] de Phone Number [facility] DON [address] [place] [address] * (ABNORMAL) Basic metabolic panel (05/18/2021 2:04 AM STAFF FORESTER) Sodium 132(L) 135 - 145 mmol/L [facility] Potassium, pl 3.7 3.3 - 4.9 mmol/L [facility] Chloride 95(L) 97 - 110 mmol/L [facility] CO2 22 22 - 32 mmol/L [facility] Anion gap 15 2 - 15 mmol/L [facility] BUN 44(H) 8 - 25 mg/dL [facility] Creatinine 1.63(H) 0.80 - 1.30 mg/dL [facility] Glucose 111 70 - 199 mg/dL [facility] Comment: Interpretive Data Fasting glucose >/= 126 [...] interpretive data was last revised 2017. Calcium 8.6 8.5 - 10.3 mg/dL [facility] Blood 05/18/2021 2:04 AM STAFF FORESTER 05/18/2021 2:09 AM STAFF FORESTER us Rhina Granados MD LAB BLOOD ORDERABLES Final R esult Performing Organization Address [facility] Co de Phone Number [facility]K DON [address] [facility] [place] [address] * POCT glucose (05/18/2021 2:03 AM STAFF FORESTER) Glucose, POC 108 70 - 199 mg/dL [facility] Blood 05/18/2021 2:03 AM STAFF FORESTER 05/18/2021 2:03 AM STAFF FORESTER us Rhina Granados MD LAB POCT ORDERABLES - DEVICE Final Result Performing Organization Address [facility] de Phone Number [facility]RIK DON [address] [facility] [place] [address] * POCT glucose (05/18/2021 1:00 AM STAFF FORESTER) Glucose, POC 111 70 - 199 mg/dL [facility] Blood 05/18/2021 1:00 AM STAFF FORESTER 05/18/2021 1:00 AM STAFF FORESTER us Rhina Granados MD LAB POCT ORDERABLES - DEVICE Final Result Performing Organization Address [facility] Co de Phone Number [facility] DON [address] [facility] [place] [address] * POCT glucose (05/17/2021 11:55 PM STAFF FORESTER) Glucose, POC 106 70 - 199 mg/dL [facility] Blood 05/17/2021 11:5 5 PM STAFF FORESTER 05/17/2021 11:55 PM STAFF FORESTER us Rhina Granados MD LAB POCT ORDERABLES - DEVICE Final Result Performing Organization Address [facility] de Phone Number H[facility]RIK [address] [facility] [place] [address] * POCT glucose (05/17/2021 10:50 PM STAFF FORESTER) Glucose, POC 82 70 - 199 mg/dL [facility] Blood 05/17/2021 10:5 0 PM STAFF FORESTER 05/17/2021 10:50 PM STAFF FORESTER Rhina Granados MD LAB POCT ORDERABLES - DEVICE Final Result Performing Organization Address [facility] de Phone Number H[facility]RIK [address] [facility] [place] [address] * POCT glucose (05/17/2021 9:45 PM STAFF FORESTER) Glucose, POC 193 70 - 199 mg/dL [facility] Blood 05/17/2021 9:45 PM STAFF FORESTER 05/17/2021 9:45 PM STAFF FORESTER Rhina Granados MD LAB POCT ORDERABLES - DEVICE Final Result Performing Organization Address [facility] de Phone Number H[facility]RIK [address] [facility] [place] [address] * eGFR (05/17/2021 9:35 PM STAFF FORESTER) eGFR 45 mL/min/1.7 3 m2 [facility] Comment: Interpretive Data Reference Interval Normal ?>/= 90 mL/min/1.73m2 Mildly decreased* ? 60 - 89 mL/min/1.73m2 Mildly to moderately decreased ?45 - 59 mL/min/1.73m2 Moderately to severely decreased ??30 - 44 mL/min/1.73m2 Severely decreased ?15 - 29 mL/min/1.73m2 Kidney Failure ?< 15 ??mL/min/1.73m2 *Relative to young adult level Estimated glomerular filtration rate is determined by the CKD-EPI equation recommended by the National Kidney Foundation (KDIGO 2012 Clinical Practice Guideline for the Evaluation and Management of Chronic Kidney Disease. Kidney Intnl Suppl Jun 2012;3:1). The CKD-EPI equation should not be used for patients with unstable renal function and has not been validated in children and those over 70. Current interpretive data was last reviewed 2020 Blood 05/17/2021 9:35 PM STAFF FORESTER 05/17/2021 9:35 PM STAFF FORESTER us Rhina Granados MD LAB BLOOD ORDERABLES Final R esult [facility] [address] [place] [address] * (ABNORMAL) Basic metabolic panel (05/17/2021 9:35 PM STAFF FORESTER) Sodium 130(L) 135 - 145 mmol/L [facility] Potassium, pl 3.6 3.3 - 4.9 mmol/L [facility] Chloride 94(L) 97 - 110 mmol/L [facility] CO2 21(L) 22 - 32 mmol/L [facility] Anion gap 15 2 - 15 mmol/L [facility] BUN 43(H) 8 - 25 mg/dL [facility] Creatinine 1.63(H) 0.80 - 1.30 mg/dL [facility] Glucose 140 70 - 199 mg/dL [facility] Comment: Interpretive Data Fasting glucose >/= 126 [...] interpretive data was last revised 2017. Calcium 8.4(L) 8.5 - 10.3 mg/dL [facility] Blood 05/17/2021 9:35 PM STAFF FORESTER 05/17/2021 9:35 PM STAFF FORESTER us Rhina Granados MD LAB BLOOD ORDERABLES Final R esult [facility] [address] [place] [address] * XR Chest 1 View (05/17/2021 9:34 PM STAFF FORESTER) Anatomical Region Laterality Modality Body, Chest N/A Computed Radiogr aphy 05/17/2021 10:3 1 PM STAFF FORESTER Impressions 05/17/2021 10:31 PM STAFF FORESTER Mild vascular congestion. Electronically signed by: Elvira Blackman M.D. Narrative 05/17/2021 10:31 PM STAFF FORESTER EXAMINATION: XR CHEST 1 VIEW HISTORY: The patient is a 60-year-old male who presents with hypoxia. Comparison is made with the previous study dated 05/09/2021. TECHNIQUE: AP portable view of the chest. FINDINGS: Borderline Cardiomegaly with aortic atherosclerosis. ??Mild degree of vascular congestion. ??No focal infiltrate. ??The tip of a retracted [place] catheter is in the superior vena cava. [...] focal infiltrate. The tip of a retracted [place] catheter is in the superior vena cava. IMPRESSION: Mild vascular congestion. Electronically signed by: Elvira Blackman M.D. us Elena Kelly ESCROW CLERK IMG XR PROCEDURES Final Res ult * POCT glucose (05/17/2021 8:42 PM STAFF FORESTER) Glucose, POC 172 70 - 199 mg/dL [facility] CH Blood 05/17/2021 8:42 PM STAFF FORESTER 05/17/2021 8:42 PM STAFF FORESTER Rhina Granados MD LAB POCT ORDERABLES - DEVICE Final Result Performing Organization Address [facility] de Phone Number [facility] [address] [place] [address] * POCT glucose (05/17/2021 7:38 PM STAFF FORESTER) Glucose, POC 195 70 - 199 mg/dL CERNER CH Blood 05/17/2021 7:38 PM STAFF FORESTER 05/17/2021 7:38 PM STAFF FORESTER Rhina Granados MD LAB POCT ORDERABLES - DEVICE Final Result Performing Organization Address [facility] Phone Number [facility] [address] [address] [facility] [place] [address] * Critical Care (05/17/2021 7:00 PM STAFF FORESTER) Narrative Jose Conti MD - 05/17/2021 7:00 PM STAFF FORESTER Elena Kelly NP ? 05/18/2021 ??6:14 AM Critical Care Performed by: Elena Kelly NP Authorized by: Elena Kelly NP CRITICAL CARE: ??Team: ??CHNE ??Shift: ??PM ??Level of Billing: ??Critical Care ??My time spent with this patient was 85 minutes: Critical Provider Statement: I have seen and examined the patient on this day of service. I have reviewed and confirmed the history, physical exam, laboratory and radiologic data as documented in the signed ICU note. I have reviewed and discussed my treatment plan with the ICU team and other medical/environmental remediation consultant staff, making frequent assessments and decisions regarding this patient's complex medical care. Critical Care time was exclusive of time spent performing separately billed procedures, treating other patients, and teaching. This time was in addition to and separate from critical care provided by other practitioners in my group on this day of service. Critical Care was necessary to treat or prevent imminent or life-threatening deterioration of the following conditions: ? Hypotension and ST-Elevation myocardial infarction (STEMI) ?? Pulmonary edema and Acute hypoxic respiratory failure ?? Acid-base disturbance, Acute kidney injury, Acute electrolyte derangement and Hypo- or Hyperglycemia ?? Acute blood loss anemia ??This time was spent by me doing the following: ? Serial laboratory checks ?? Acute pain control ?? Interpretation of cardiac output measurements and Initiation/active titration of vasoactive medications ?? Active and frequent reassessment of respiratory status and oxygen requirements, Supplemental oxygen via mask and Incentive spirometry, pulmonary toilet ?? Active and frequent monitoring of intake/output and volumen status and Glycemic control ?? Active diuresis and Active repletion of electrolytes ?? Review of prior or current culture/gram stain results ?? I spent time reviewing and interpreting data from bedside monitors, laboratory results, and imaging, I spent time discussing the management of this critically ill patient with consultants and the medical staff and I spent time documenting in the medical record us Elena Kelly NP IN CLINIC/BEDSIDE ORDERABLE S Final Result * (ABNORMAL) POCT glucose (05/17/2021 6:51 PM STAFF FORESTER) Glucose, POC 216(H) 70 - 199 mg/dL CERNER Blood 05/17/2021 6:51 PM STAFF FORESTER 05/17/2021 6:51 PM STAFF FORESTER us Rhina Granados MD LAB POCT ORDERABLES - DEVICE Final Result [facility] [address] [place] [address] * POCT glucose (05/17/2021 6:04 PM STAFF FORESTER) Glucose, POC 148 70 - 199 mg/dL CERNER Blood 05/17/2021 6:04 PM STAFF FORESTER 05/17/2021 6:04 PM STAFF FORESTER Rhina Granados MD LAB POCT ORDERABLES - DEVICE Final Result Performing Organization Address [facility]/ZIP Co de Phone Number [facility] [address] [address] [facility] [place] [address] * POCT glucose (05/17/2021 5:00 PM STAFF FORESTER) Glucose, POC 115 70 - 199 mg/dL [facility] Blood 05/17/2021 5:00 PM STAFF FORESTER 05/17/2021 5:00 PM STAFF FORESTER Rhina Granados MD LAB POCT ORDERABLES - DEVICE Final Result Performing Organization Address [facility] Co de Phone Number [facility] [address] [address] [facility] [place] [address] * POCT glucose (05/17/2021 3:54 PM STAFF FORESTER) Glucose, POC 134 70 - 199 mg/dL [facility] Blood 05/17/2021 3:54 PM STAFF FORESTER 05/17/2021 3:54 PM STAFF FORESTER Rhina Granados MD LAB POCT ORDERABLES - DEVICE Final Result Performing Organization Address [facility] de Phone Number [facility] [address] [address] [facility] [place] [address] * eGFR (05/17/2021 2:49 PM STAFF FORESTER) eGFR 45 mL/min/1.7 3 m2 [facility] Comment: Interpretive Data Reference Interval Normal ?>/= 90 mL/min/1.73m2 Mildly decreased* ? 60 - 89 mL/min/1.73m2 Mildly to moderately decreased ?45 - 59 mL/min/1.73m2 Moderately to severely decreased ??30 - 44 mL/min/1.73m2 Severely decreased ?15 - 29 mL/min/1.73m2 Kidney Failure ?< 15 ??mL/min/1.73m2 *Relative to young adult level Estimated glomerular filtration rate is determined by the CKD-EPI equation recommended by the National Kidney Foundation (KDIGO 2012 Clinical Practice Guideline for the Evaluation and Management of Chronic Kidney Disease. Kidney Intnl Suppl Jun 2012;3:1). The CKD-EPI equation should not be used for patients with unstable renal function and has not been validated in children and those over 70. Current interpretive data was last reviewed 2020 Blood 05/17/2021 2:49 PM STAFF FORESTER 05/17/2021 2:52 PM STAFF FORESTER Rhina Granados MD LAB BLOOD ORDERABLES Final R esult Performing Organization Address City/[facility]/ZIP Co de Phone Number [facility] [address] [place] [address] * (ABNORMAL) Magnesium (05/17/2021 2:49 PM STAFF FORESTER) Pathologist [facility] Magnesium 3.3(H) 1.4 - 2.5 mg/dL [facility] Blood 05/17/2021 2:49 PM STAFF FORESTER 05/17/2021 2:52 PM STAFF FORESTER Rhina Granados MD LAB BLOOD ORDERABLES Final R esult Performing Organization Address City/[facility] Co de Phone Number [facility] [address] Department of [place], [place] [id number] * (ABNORMAL) Basic metabolic panel (05/17/2021 2:49 PM STAFF FORESTER) Sodium 130(L) 135 - 145 mmol/L CERNER Potassium, pl 3.5 3.3 - 4.9 mmol/L [facility] Chloride 92(L) 97 - 110 mmol/L [facility] CH CO2 21(L) 22 - 32 mmol/L CERNER Anion gap 17(H) 2 - 15 mmol/L [facility] CH BUN 36(H) 8 - 25 mg/dL [facility] CH Creatinine 1.65(H) 0.80 - 1.30 mg/dL [facility] CH Glucose 180 70 - 199 mg/dL [facility] Comment: Interpretive Data Fasting glucose >/= 126 [...] interpretive data was last revised 2017. Calcium 8.4(L) 8.5 - 10.3 mg/dL [facility] Blood 05/17/2021 2:49 PM STAFF FORESTER 05/17/2021 2:52 PM STAFF FORESTER Rhina Granados MD LAB BLOOD ORDERABLES Final R esult Performing Organization Address City/[facility]/ZIP Co de Phone Number [facility] [address] [place], [place] [id number] * POCT glucose (05/17/2021 2:47 PM STAFF FORESTER) Glucose, POC 176 70 - 199 mg/dL [facility] Blood 05/17/2021 2:47 PM STAFF FORESTER 05/17/2021 2:47 PM STAFF FORESTER Rhina Granados MD LAB POCT ORDERABLES - DEVICE Final Result Performing Organization Address City/[facility]/ZIP Co de Phone Number [facility] [address] [place] [address] * (ABNORMAL) POCT glucose (05/17/2021 1:32 PM STAFF FORESTER) Glucose, POC 245(H) 70 - 199 mg/dL [facility] Blood 05/17/2021 1:32 PM STAFF FORESTER 05/17/2021 1:32 PM STAFF FORESTER Rhina Granados MD LAB POCT ORDERABLES - DEVICE Final Result Performing Organization Address [facility] Co de Phone Number [facility] [address] [address] [facility] [place] [address] * (ABNORMAL) POCT glucose (05/17/2021 12:27 PM STAFF FORESTER) Glucose, POC 299(H) 70 - 199 mg/dL [facility] Blood 05/17/2021 12:2 7 PM STAFF FORESTER 05/17/2021 12:27 PM STAFF FORESTER Rhina Granados MD LAB POCT ORDERABLES - DEVICE Final Result Performing Organization Address [facility] de Phone Number [facility] [address] [address] [facility] [place] [address] * eGFR (05/17/2021 9:53 AM STAFF FORESTER) eGFR 63 mL/min/1.7 3 m2 [facility] Comment: Interpretive Data Reference Interval Normal ?>/= 90 mL/min/1.73m2 Mildly decreased* ? 60 - 89 mL/min/1.73m2 Mildly to moderately decreased ?45 - 59 mL/min/1.73m2 Moderately to severely decreased ??30 - 44 mL/min/1.73m2 Severely decreased ?15 - 29 mL/min/1.73m2 Kidney Failure ?< 15 ??mL/min/1.73m2 *Relative to young adult level Estimated glomerular filtration rate is determined by the CKD-EPI equation recommended by the National Kidney Foundation (KDIGO 2012 Clinical Practice Guideline for the Evaluation and Management of Chronic Kidney Disease. Kidney Intnl Suppl Jun 2012;3:1). The CKD-EPI equation should not be used for patients with unstable renal function and has not been validated in children and those over 70. Current interpretive data was last reviewed 2020 Blood 05/17/2021 9:53 AM STAFF FORESTER 05/17/2021 10:22 AM STAFF FORESTER Rhina Granados MD LAB BLOOD ORDERABLES Final R esult Performing Organization Address City/[facility] Co de Phone Number [facility] [address] [place] [address] * (ABNORMAL) Beta-hydroxybutyrate (05/17/2021 9:53 AM STAFF FORESTER) Beta-Hydroxybut yrate 1.4(H) <=0.5 mmol/L [facility] Blood 05/17/2021 9:53 AM STAFF FORESTER 05/17/2021 11:27 PM STAFF FORESTER Caleb MOODY LAB BLOOD ORDERABLES Final Result Performing Organization Address [facility] Co de Phone Number [facility] [address] [employer] [place] [address] * Lactate (05/17/2021 9:53 AM STAFF FORESTER) Lactate 1.7 0.7 - 2.0 mmol/L [facility] Blood 05/17/2021 9:53 AM STAFF FORESTER 05/17/2021 10:05 AM STAFF FORESTER Caleb MOOYD LAB BLOOD ORDERABLES Final Result Performing Organization Address [facility] Co de Phone Number [facility] [address] [address] [facility] [place] [address] * (ABNORMAL) Basic metabolic panel (05/17/2021 9:53 AM STAFF FORESTER) Sodium 129(L) 135 - 145 mmol/L [facility] CH Potassium, pl 3.6 3.3 - 4.9 mmol/L [facility] CH Chloride 89(L) 97 - 110 mmol/L [facility] CH CO2 21(L) 22 - 32 mmol/L [facility] CH Anion gap 19(H) 2 - 15 mmol/L [facility] CH BUN 32(H) 8 - 25 mg/dL [facility] CH Creatinine 1.24 0.80 - 1.30 mg/dL [facility] CH Glucose 343(H) 70 - 199 mg/dL [facility] Comment: Interpretive Data Fasting glucose >/= 126 [...] interpretive data was last revised 2017. Calcium 8.4(L) 8.5 - 10.3 mg/dL [facility] CH Blood 05/17/2021 9:53 AM STAFF FORESTER 05/17/2021 10:05 AM STAFF FORESTER Rhina Granados MD LAB BLOOD ORDERABLES Final R esult Performing Organization Address [facility] Co de Phone Number [facility] [address] [place] [address] * (ABNORMAL) POCT glucose (05/17/2021 9:36 AM STAFF FORESTER) Glucose, POC 268(H) 70 - 199 mg/dL [facility] Blood 05/17/2021 9:36 AM STAFF FORESTER 05/17/2021 9:36 AM STAFF FORESTER Rhina Granados MD LAB POCT ORDERABLES - DEVICE Final Result Performing Organization Address [facility] Co de Phone Number [facility] [address] [place] [address] * Critical Care (05/17/2021 8:04 AM STAFF FORESTER) Narrative Alexandru Porter MD - 05/17/2021 8:04 AM STAFF FORESTER Caleb Toth PA ? 05/17/2021 ??4:48 PM Critical Care Performed by: Caleb Toth PA Authorized by: Caleb Toth PA CRITICAL CARE: ??Team: ??CHNE ??Shift: ??AM ??Level of Billing: ??Subsequent Hospital Visit Level 3 ??My time spent with this patient was 60 minutes: Critical Provider Statement: I have seen and examined the patient on this day of service. I have reviewed and confirmed the history, physical exam, laboratory, and radiographic data as documented in the ICU note. I have reviewed and discussed my treatment plan with the patient's team and other medical/environmental remediation consultant staff. This time was in addition to and separate from care provided by other practitioners on this day of service. ?? us Caleb MOODY IN CLINIC/BEDSIDE ORD ERABLES Final Result * XR Chest 1 Vw Portable (05/17/2021 7:41 AM STAFF FORESTER) Anatomical Region Laterality Modality Body, Chest N/A Computed Radiogr aphy 05/17/2021 1:45 PM STAFF FORESTER Impressions 05/17/2021 1:45 PM STAFF FORESTER No change from previous. Electronically signed by: Humphrey Mojica M.D. Narrative 05/17/2021 1:45 PM STAFF FORESTER EXAM: ?? XR CHEST 1 VIEW DATE: [...] previous. Electronically signed by: Humphrey Mojica M.D. us Rhina Granados MD IMG XR PROCEDURES Final Resu lt * Oxyhemoglobin, central venous (05/17/2021 4:50 AM STAFF FORESTER) Oxyhemoglobin, CV 83.8 % [facility] Comment: Interpretive Data No reference range established. Current interpretive data was last revised 2019. Blood 05/17/2021 4:50 AM STAFF FORESTER 05/17/2021 5:03 AM STAFF FORESTER us Jose Conti MD LAB BLOOD ORDERABLES Final Resul t [facility] [address] [facility] Department [place] [address] * TRANSTHORACIC ECHO (TTE) COMPLETE W DOPPLER/CF WO CONTRAST (05/17/2021 3:55 AM STAFF FORESTER) Anatomical Region Laterality Modality Ultrasound 05/17/2021 3:34 PM STAFF FORESTER Narrative 05/18/2021 8:55 [place] [address] Echocardiogram Report Patient Name: DEEPAK ALVARADO W : 1960 Study Date: 05/17/2021 3:34:31 PM Gender: M Tech: NA Location: [id number] Ref Provider: RHINA GRANADOSHeight(Cm): 175 BSA: 1.96 Weight(Kg): 79 Heart Rate: 82 BP: 92/61 Quality: Good Order Provider: RHINA GRANADOS PROCEDURES: Echocardiographic Report: Transthoracic echocardiogram with complete 2D, M-Mode, and color Doppler examination. INDICATIONS: F/U CABG. Measurements: 2D/M Mode ?Doppler ? Measurement ?Value ?Normal Range ? Measurement ?Value ?Normal Range ? EF Teich 2D ?32.4 ? [ 55.0 - 70.0 ] percent ?CHRISTINA Vmax ? 2.58 ? [ 2.00 - 4.00 ] cm2 ? EF Mod 4C ?36.6 ? [ 55.0 - 70.0 ] percent ?AV Mean PG ? 2 ?[ 2 - 4 ] mmHg ? LVIDd 2D ? 4.61 ? [ 4.20 - 5.90 ] cm ? AV Peak Ramesh ?1.05 ? [ 1.00 - 1.70 ] m/s ? LVIDs 2D ? 3.91 ? [ 2.30 - 3.90 ] cm ? AV VTI ? 18.72 ?cm ? LVPWd 2D ? 0.98 ? [ 0.60 - 1.00 ] cm ? LVOT Diam ?2.02 ? [ 1.70 - 2.10 ] cm ? IVSd 2D ?0.83 ? [ 0.60 - 0.90 ] cm ? LVOT Peak Ramesh ?0.85 ? [ 0.70 - 1.10 ] m/s ? ACS MM ? 2.05 ? [ 1.50 - 2.60 ] cm ? LVOT VTI ? 13.90 ?[ 20.00 - 30.00 ] cm ? MV E Peak Ramesh ?0.51 ? [ 0.60 - 1.30 ] m/s ? MV A Peak Ramesh ?0.86 ? [ 1.00 - 1.20 ] m/s ? MV PHT ? 55 ? [ 20 - 100 ] msec ? MV Decel Time ?181 ?[ 104 - 258 ] msec ? PV Peak Ramesh ?0.96 ? [ 0.40 - 0.80 ] m/s ? TR Peak Ramesh ?2.50 ? [ 1.00 - 2.80 ] m/s ? TR Peak PG ? 25 ? mmHg ? RVSP ? 28.00 ?[ 10.00 - 36.00 ] mmHg ? E' ? 0.05 ? E/E' ? 9.00 ? Measurement ?Value ?Normal Range ? Measurement ?Value ?Normal Range ? 2D/M Mode ?Doppler ? - FINDINGS: Atrial Septum: The atrial septum [...] valve. Electronically Signed By: Rylee Brito DO, FACC, FASMishaFAISAL 2021-05-18 08:55:09 STAFF FORESTER CC: CC: CC: Procedure Note Rylee Brito DO - 05/18/2021 [place] [address] Echocardiogram Report Patient Name: DEEPAK ALVARADO WPatient ID: [id number] : [id number] Date: 05/17/2021 3:34:31 PM Gender: MAccession #: [id number] Tech: NALocation: [id number] Ref Provider: RHINA GRANADOSHeight(Cm): 175 BSA: 1.96Weight(Kg): 79 Heart Rate: 82BP: 92/61 Quality: GoodOrder Provider: RHINA GRANADOS PROCEDURES: Echocardiographic Report: Transthoracic echocardiogram with complete 2D, M-Mode, and color Dopplerexamination. INDICATIONS: F/U CABG. Measurements: 2D/M Mode Doppler Measurement Value Normal Range Measurement ValueNormal Range EF Teich 2D 32.4 [ 55.0 - 70.0 ] percent CHRISTINA Vmax 2.58[ 2.00 - 4.00 ] cm2 EF Mod 4C 36.6 [ 55.0 - 70.0 ] percent AV Mean PG 2[ 2 - 4 ] mmHg LVIDd 2D 4.61 [ 4.20 - 5.90 ] cm AV Peak Ramesh 1.05[ 1.00 - 1.70 ] m/s LVIDs 2D 3.91 [ 2.30 - 3.90 ] cm AV VTI 18.72cm LVPWd 2D 0.98 [ 0.60 - 1.00 ] cm LVOT Diam 2.02[ 1.70 - 2.10 ] cm IVSd 2D 0.83 [ 0.60 - 0.90 ] cm LVOT Peak Ramesh 0.85[ 0.70 - 1.10 ] m/s ACS MM 2.05 [ 1.50 - 2.60 ] cm LVOT VTI 13.90[ 20.00 - 30.00 ] cm MV E Peak Ramesh 0.51[ 0.60 - 1.30 ] m/s MV A Peak Ramesh 0.86[ 1.00 - 1.20 ] m/s MV PHT 55[ 20 - 100 ] msec MV Decel Time 181[ 104 - 258 ] msec PV Peak Ramesh 0.96[ 0.40 - 0.80 ] m/s TR Peak Ramesh 2.50[ 1.00 - 2.80 ] m/s TR Peak PG 25mmHg RVSP 28.00[ 10.00 - 36.00 ] mmHg E' 0.05 E/E' 9.00 Measurement Value Normal Range Measurement ValueNormal Range 2D/M Mode Doppler - FINDINGS: Atrial Septum: The atrial septum is not well visualized. Left Ventricle: Normal left ventricular size. Left ventricle not well visualized. Considerrepeat echo with contrast for better visualization of endocardial border, andmeasurement of EF. Mild concentric left ventricular hypertrophy. Impaired diastolic relaxationGrade I. Ejection fraction is visually estimated at 35-40 %. Left Atrium: Left atrium is not well visualized. Right Ventricle: Normal right ventricular systolic function. Right Atrium: Right atrium is not well visualized. Aortic Valve: Aortic cusps appear mildly sclerotic. No evidence of hemodynamicallysignificant aortic stenosis by Doppler. No aortic regurgitation. Mitral Valve: Normal structure of the mitral valve. Trivial regurgitation of the mitralvalve. Pulmonic Valve: Pulmonic valve not well visualized. Tricuspid Valve: Tricuspid valve not well visualized. Estimated peak RVSP is 25 mmHg.Trivial regurgitation in the tricuspid valve. Pericardium: Normal pericardium with no significant pericardial effusion. Aorta: Aortic root is mildly dilated at 3.7cm. IVC: Normal size and normal respiratory collapse consistent with normal rightatrial pressure (<5 mmHg). CONCLUSIONS: Technically difficult study with limited views. Normal left ventricular size. Left ventricle not well visualized. Considerrepeat echo with contrast for better visualization of endocardial border, andmeasurement of EF. Mild concentric left ventricular hypertrophy. Impaired diastolic relaxationGrade I. Ejection fraction is visually estimated at 35-40 %. Normal structure of the mitral valve. Trivial regurgitation of the mitralvalve. Tricuspid valve not well visualized. Estimated peak RVSP is 25 mmHg.Trivial regurgitation in the tricuspid valve. Electronically Signed By: Rylee Brito DO, SONAC, VILMA, MIRIAMNM 2021-05-18 08:55:09 STAFF FORESTER CC: CC: CC: Rhina Granados MD CV ECHO PROCEDURES Final Res ult * Oxyhemoglobin, central venous (05/17/2021 3:43 AM STAFF FORESTER) Oxyhemoglobin, CV 57.0 % [facility] Comment: Interpretive Data No reference range established. Current interpretive data was last revised 2019. Blood 05/17/2021 3:43 AM STAFF FORESTER 05/17/2021 3:51 AM STAFF FORESTER Rhina Granados MD LAB BLOOD ORDERABLES Final R esult [facility] [address] [facility] Department [place] [address] * eGFR (05/17/2021 3:33 AM STAFF FORESTER) eGFR 76 mL/min/1.7 3 m2 [facility] Comment: Interpretive Data Reference Interval Normal ?>/= 90 mL/min/1.73m2 Mildly decreased* ? 60 - 89 mL/min/1.73m2 Mildly to moderately decreased ?45 - 59 mL/min/1.73m2 Moderately to severely decreased ??30 - 44 mL/min/1.73m2 Severely decreased ?15 - 29 mL/min/1.73m2 Kidney Failure ?< 15 ??mL/min/1.73m2 *Relative to young adult level Estimated glomerular filtration rate is determined by the CKD-EPI equation recommended by the National Kidney Foundation (KDIGO 2012 Clinical Practice Guideline for the Evaluation and Management of Chronic Kidney Disease. Kidney Intnl Suppl Jun 2012;3:1). The CKD-EPI equation should not be used for patients with unstable renal function and has not been validated in children and those over 70. Current interpretive data was last reviewed 2020 Blood 05/17/2021 3:33 AM STAFF FORESTER 05/17/2021 3:52 AM STAFF FORESTER us Jose Conti MD LAB BLOOD ORDERABLES Final Resul t [facility] [address] [place] [address] * (ABNORMAL) Differential, auto (05/17/2021 3:33 AM STAFF FORESTER) Neutrophil abs 6.8(H) 1.7 - 6.5 K/cumm [facility] Imm gran abs 0.1 0.0 - 0.1 K/cumm [facility] Lymphocyte abs 1.0 0.8 - 3.3 K/cumm [facility] Monocyte abs 0.8 0.2 - 0.8 K/cumm [facility] Eosinophil abs 0.0 0.0 - 0.5 K/cumm [facility] Basophil abs 0.0 0.0 - 0.1 K/cumm [facility] Neutrophil pct 78.4 % [facility] Comment: Interpretive Data Percent cell count reference ranges are not reported, since discordance with absolute values may lead to misinterpretation of CBC data. Current Interpretive Data was last revised on 2017. Imm gran pct 0.6 % [facility] Comment: Interpretive Data Percent cell count reference ranges are not reported, since discordance with absolute values may lead to misinterpretation of CBC data. Current Interpretive Data was last revised on 2017. Lymphocyte pct 11.7 % [facility] Comment: Interpretive Data Percent cell count reference ranges are not reported, since discordance with absolute values may lead to misinterpretation of CBC data. Current Interpretive Data was last revised on 2017. Monocyte pct 9.0 % [facility] Comment: Interpretive Data Percent cell count reference ranges are not reported, since discordance with absolute values may lead to misinterpretation of CBC data. Current Interpretive Data was last revised on 2017. Eosinophil pct 0.1 % [facility] Comment: Interpretive Data Percent cell count reference ranges are not reported, since discordance with absolute values may lead to misinterpretation of CBC data. Current Interpretive Data was last revised on 2017. Basophil pct 0.2 % [facility] Comment: Interpretive Data Percent cell count reference ranges are not reported, since discordance with absolute values may lead to misinterpretation of CBC data. Current Interpretive Data was last revised on 2017. Blood 05/17/2021 3:33 AM STAFF FORESTER 05/17/2021 3:52 AM STAFF FORESTER Jose Conti MD LAB BLOOD ORDERABLES Final Resul t Performing Organization Address City/[facility] Co de Phone Number [facility] [address] [place] [address] * (ABNORMAL) CBC with auto differential (05/17/2021 3:33 AM STAFF FORESTER) WBC 8.7 3.8 - 9.9 K/cumm [facility] Hgb 11.3(L) 13.0 - 17.5 g/dL [facility] Hct 33.8(L) 38.9 - 50.3 % [facility] Plt 267 150 - 400 K/cumm [facility] MPV 12.1 9.1 - 12.3 fL [facility] RBC 3.76(L) 4.30 - 5.80 M/cumm [facility] MCV 89.9 81.3 - 96.4 fL [facility] MCH 30.1 27.1 - 33.3 pg [facility] MCHC 33.4 32.3 - 35.7 g/dL [facility] RDW CV 13.3 11.1 - 14.9 % [facility] RDW SD 43.8 35.7 - 48.1 fL [facility] NRBC abs 0.00 0.00 - 0.01 K/cumm [facility] Blood 05/17/2021 3:33 AM STAFF FORESTER 05/17/2021 3:52 AM STAFF FORESTER Jose Conti MD LAB BLOOD ORDERABLES Final Resul t Performing Organization Address City/[facility]/ZIP Co de Phone Number [place] [address] [facility] [place] [address] * Phosphorus (05/17/2021 3:33 AM STAFF FORESTER) Phosphorus, pl 4.4 2.3 - 4.5 mg/dL [facility] Blood 05/17/2021 3:33 AM STAFF FORESTER 05/17/2021 3:52 AM STAFF FORESTER us Jose Conti MD LAB BLOOD ORDERABLES Final Resul t Performing Organization Address [facility] de Phone Number [facility] [place] [address] [facility] [place] [address] * Magnesium (05/17/2021 3:33 AM STAFF FORESTER) Magnesium 1.7 1.4 - 2.5 mg/dL [facility] Blood 05/17/2021 3:33 AM STAFF FORESTER 05/17/2021 3:52 AM STAFF FORESTER us Jose Conti MD LAB BLOOD ORDERABLES Final Resul t Performing Organization Address [facility] de Phone Number [facility] [place] [address] [place] [address] * (ABNORMAL) Calcium, ionized (05/17/2021 3:33 AM STAFF FORESTER) Ca, ionized, bld 4.42(L) 4.60 - 5.20 mg/dL [facility] Ca, ionized, bld, calc 4.44(L) 4.60 - 5.20 mg/dL [facility] Blood 05/17/2021 3:33 AM STAFF FORESTER 05/17/2021 3:51 AM STAFF FORESTER us Jose Conti MD LAB BLOOD ORDERABLES Final Resul t Performing Organization Address [facility] Co de Phone Number [facility] DON [address] [place] [address] * (ABNORMAL) Comprehensive metabolic panel (05/17/2021 3:33 AM STAFF FORESTER) Sodium 133(L) 135 - 145 mmol/L [facility] Potassium, pl 2.6(C) 3.3 - 4.9 mmol/L [facility] Comment:Critical Result call ed to and read back by Mani Diegoabrahamjoanne, DATE: 2021-05-17 04:21:37 BY: Sofía Arevalo Chloride 92(L) 97 - 110 mmol/L [facility] CO2 22 22 - 32 mmol/L [facility] Anion gap 19(H) 2 - 15 mmol/L [facility] BUN 25 8 - 25 mg/dL [facility] Creatinine 1.06 0.80 - 1.30 mg/dL [facility] Glucose 157 70 - 199 mg/dL [facility] Comment: Interpretive Data Fasting glucose >/= 126 [...] interpretive data was last revised 2017. Calcium 8.3(L) 8.5 - 10.3 mg/dL [facility] Bilirubin, total 0.7 0.1 - 1.2 mg/dL [facility] Protein, pl 7.3 6.5 - 8.5 g/dL [facility] Albumin 3.5 3.5 - 5.0 g/dL [facility] Alk phos 94 40 - 130 Units/L [facility] ALT 20 7 - 55 Units/L [facility] AST 64(H) 10 - 50 Units/L [facility] Blood 05/17/2021 3:33 AM STAFF FORESTER 05/17/2021 3:52 AM STAFF FORESTER us Jose Conti MD LAB BLOOD ORDERABLES Final Resul t [facility] [address] [place] [address] * Critical Care (05/17/2021 3:31 AM STAFF FORESTER) Narrative Jose Conti MD - 05/17/2021 3:31 AM STAFF FORESTER Jose Conti MD ? 05/17/2021 ??3:33 AM Critical Care Performed by: Jose Conti MD Authorized by: Jose Conti MD CRITICAL CARE: ??Team: ??CHNE ??Shift: ??PM ??Level of Billing: ??Critical Care ??My time spent with this patient was 60 minutes: Critical Provider Statement: I have seen and examined the patient on this day of service. I have reviewed and confirmed the history, physical exam, laboratory and radiologic data as documented in the signed ICU note. I have reviewed and discussed my treatment plan with the ICU team and other medical/environmental remediation consultant staff, making frequent assessments and decisions regarding this patient's complex medical care. Critical Care time was exclusive of time spent performing separately billed procedures, treating other patients, and teaching. This time was in addition to and separate from critical care provided by other practitioners in my group on this day of service. Critical Care was necessary to treat or prevent imminent or life-threatening deterioration of the following conditions: ? Acute congestive heart failure excerbation (CHF) ?? Acute respiratory failure following procedure/surgery, Acute hypoxic respiratory failure and Pulmonary edema ??This time was spent by me doing the following: ? Serial laboratory checks and Serial bedside patient exams ?? Active and frequent reassessment of respiratory status and oxygen requirements, Supplemental oxygen via mask and Incentive spirometry, pulmonary toilet ?? Active and frequent monitoring of intake/output and volumen status ?? Active diuresis and Active repletion of electrolytes ?? Review of prior or current culture/gram stain results ?? I spent time reviewing and interpreting data from bedside monitors, laboratory results, and imaging, I spent time discussing the management of this critically ill patient with consultants and the medical staff and I spent time documenting in the medical record us Jose Conti MD IN CLINIC/BEDSIDE ORDERABLES Fin al Result * XR Chest 1 Vw Portable (05/17/2021 2:34 AM STAFF FORESTER) Anatomical Region Laterality Modality Body, Chest N/A Computed Radiogr aphy 05/17/2021 11:3 5 AM STAFF FORESTER Impressions 05/17/2021 11:35 AM STAFF FORESTER 1. ??Status post median sternotomy. 2. ??Right jugular venous catheter in place. 3. ??Pulmonary vascular congestion. 4. ??Mild infiltrate in the left lower lobe and possible small left pleural effusion. Electronically signed by: Humphrey Mojica M.D. Narrative 05/17/2021 11:35 AM STAFF FORESTER EXAM: ?? XR CHEST 1 VIEW DATE: [...] effusion. Electronically signed by: Humphrey Mojica M.D. us Laly Lopes MD IMG XR PROCEDURES Final Res ult * POCT glucose (05/17/2021 2:21 AM STAFF FORESTER) Glucose, POC 139 70 - 199 mg/dL [facility] Blood 05/17/2021 2:21 AM STAFF FORESTER 05/17/2021 2:21 AM STAFF FORESTER us Rhina Granados MD LAB POCT ORDERABLES - DEVICE Final Result [facility] [place] [address] [place] [address] * (ABNORMAL) Blood gas, arterial (05/17/2021 2:20 AM STAFF FORESTER) pH, Art 7.50(H) 7.35 - 7.45 [facility] PCO2, Arterial 27(L) 35 - 45 mmHg [facility] PO2, Arterial 72(L) 83 - 108 mmHg [facility] HCO3 Art (Calculated) 24 20 - 30 mmol/L [facility] BE, art -2 mmol/L [facility] Comment: Interpretive Data No Reference Range Established Current Interpretive Data was last revised on 2017 O2 Sat Art (Measured) 96(H) 90 - 95 % [facility] Blood 05/17/2021 2:20 AM STAFF FORESTER 05/17/2021 2:25 AM STAFF FORESTER us Laly Lopes MD LAB BLOOD ORDERABLES Final Result Performing Organization Address City/[facility]/ZIP Co de Phone Number [place] [address] [place] [address] * POCT glucose (05/17/2021 2:01 AM STAFF FORESTER) Glucose, POC 135 70 - 199 mg/dL [facility] Blood 05/17/2021 2:01 AM STAFF FORESTER 05/17/2021 2:01 AM STAFF FORESTER us Rhina Granados MD LAB POCT ORDERABLES - DEVICE Final Result [facility] [place] [address] [place] [address] * POCT glucose (05/16/2021 10:45 PM STAFF FORESTER) Glucose, POC 131 70 - 199 mg/dL [facility] Blood 05/16/2021 10:4 5 PM STAFF FORESTER 05/16/2021 10:45 PM STAFF FORESTER Rhina Granados MD LAB POCT ORDERABLES - DEVICE Final Result [facility] DON [address] [facility] [place] [address] * POCT glucose (05/16/2021 8:47 PM STAFF FORESTER) Glucose, POC 142 70 - 199 mg/dL [facility] Blood 05/16/2021 8:47 PM STAFF FORESTER 05/16/2021 8:47 PM STAFF FORESTER Rhina Granados MD LAB POCT ORDERABLES - DEVICE Final Result Performing Organization Address City/[facility] Co de Phone Number [facility]K [address] [address] [facility] [place] [address] * POCT glucose (05/16/2021 6:10 PM STAFF FORESTER) Glucose, POC 104 70 - 199 mg/dL [facility] Blood 05/16/2021 6:10 PM STAFF FORESTER 05/16/2021 6:10 PM STAFF FORESTER Rhina Granados MD LAB POCT ORDERABLES - DEVICE Final Result Performing Organization Address City/[facility] Co de Phone Number H[facility]K [address] [address] [facility] [place] [address] * POCT glucose (05/16/2021 12:54 PM STAFF FORESTER) Glucose, POC 114 70 - 199 mg/dL [facility] Blood 05/16/2021 12:5 4 PM STAFF FORESTER 05/16/2021 12:54 PM STAFF FORESTER Rhina Granados MD LAB POCT ORDERABLES - DEVICE Final Result Performing Organization Address [facility] Co de Phone Number [facility] [address] [facility] [place] [address] * POCT glucose (05/16/2021 7:51 AM STAFF FORESTER) Pathologist [facility] Glucose, POC 135 70 - 199 mg/dL [facility] Blood 05/16/2021 7:51 AM STAFF FORESTER 05/16/2021 7:51 AM STAFF FORESTER Rhina Granados MD LAB POCT ORDERABLES - DEVICE Final Result Performing Organization Address [facility] de Phone Number [facility] [address] [facility] [place] [address] * eGFR (05/16/2021 5:42 AM STAFF FORESTER) eGFR 105 mL/min/1.7 3 m2 [facility] Comment: Interpretive Data Reference Interval Normal ?>/= 90 mL/min/1.73m2 Mildly decreased* ? 60 - 89 mL/min/1.73m2 Mildly to moderately decreased ?45 - 59 mL/min/1.73m2 Moderately to severely decreased ??30 - 44 mL/min/1.73m2 Severely decreased ?15 - 29 mL/min/1.73m2 Kidney Failure ?< 15 ??mL/min/1.73m2 *Relative to young adult level Estimated glomerular filtration rate is determined by the CKD-EPI equation recommended by the National Kidney Foundation (KDIGO 2012 Clinical Practice Guideline for the Evaluation and Management of Chronic Kidney Disease. Kidney Intnl Suppl Jun 2012;3:1). The CKD-EPI equation should not be used for patients with unstable renal function and has not been validated in children and those over 70. Current interpretive data was last reviewed 2020 Blood 05/16/2021 5:42 AM STAFF FORESTER 05/16/2021 5:46 AM STAFF FORESTER us Rhina Granados MD LAB BLOOD ORDERABLES Final R esult [place] [address] [place] [address] * (ABNORMAL) CBC without differential (05/16/2021 5:42 AM STAFF FORESTER) WBC 6.2 3.8 - 9.9 K/cumm [facility] Hgb 9.9(L) 13.0 - 17.5 g/dL [facility] Hct 30.8(L) 38.9 - 50.3 % [facility] Plt 241 150 - 400 K/cumm [facility] MPV 11.7 9.1 - 12.3 fL [facility] RBC 3.34(L) 4.30 - 5.80 M/cumm [facility] MCV 92.2 81.3 - 96.4 fL [facility] MCH 29.6 27.1 - 33.3 pg [facility] MCHC 32.1(L) 32.3 - 35.7 g/dL [facility] RDW CV 13.4 11.1 - 14.9 % [facility] RDW SD 45.6 35.7 - 48.1 fL [facility] NRBC abs 0.00 0.00 - 0.01 K/cumm [facility] Blood 05/16/2021 5:42 AM STAFF FORESTER 05/16/2021 5:46 AM STAFF FORESTER us Silviano Huddleston ESCROW CLERK LAB BLOOD ORDERABLES Final Result [place] [address] [place] [address] * Magnesium (05/16/2021 5:42 AM STAFF FORESTER) Pathologist [facility] Magnesium 2.0 1.4 - 2.5 mg/dL [facility] Blood 05/16/2021 5:42 AM STAFF FORESTER 05/16/2021 5:46 AM STAFF FORESTER Silvianoreed Saldivar Flaquito ESCROW CLERK LAB BLOOD ORDERABLES Final Result Performing Organization Address City/[facility] Co de Phone Number H[facility]RIK [address] [address] [facility] [place] [address] * Phosphorus (05/16/2021 5:42 AM STAFF FORESTER) Pathologist [facility] Phosphorus, pl 3.2 2.3 - 4.5 mg/dL [facility] Blood 05/16/2021 5:42 AM STAFF FORESTER 05/16/2021 5:46 AM STAFF FORESTER Silviano Huddleston ESCROW CLERK LAB BLOOD ORDERABLES Final Result Performing Organization Address [facility] Phone Number [facility] [address] [place] [address] * (ABNORMAL) Basic metabolic panel (05/16/2021 5:42 AM STAFF FORESTER) Pathologist [facility] Sodium 132(L) 135 - 145 mmol/L [facility] Potassium, pl 3.8 3.3 - 4.9 mmol/L [facility] Chloride 101 97 - 110 mmol/L [facility] CO2 20(L) 22 - 32 mmol/L [facility] Anion gap 11 2 - 15 mmol/L [facility] BUN 22 8 - 25 mg/dL [facility] Creatinine 0.68(L) 0.80 - 1.30 mg/dL [facility] Glucose 96 70 - 199 mg/dL [facility] Comment: Interpretive Data Fasting glucose >/= 126 [...] interpretive data was last revised 2017. Calcium 8.1(L) 8.5 - 10.3 mg/dL [facility] Blood 05/16/2021 5:42 AM STAFF FORESTER 05/16/2021 5:46 AM STAFF FORESTER Rhina Granados MD LAB BLOOD ORDERABLES Final R esult [place] [address] [facility] [place] [address] * XR Chest 1 View (05/16/2021 5:29 AM STAFF FORESTER) Anatomical Region Laterality Modality Body, Chest N/A Computed Radiogr aphy 05/16/2021 9:16 AM STAFF FORESTER Impressions 05/16/2021 9:16 AM STAFF FORESTER No change from previous. Electronically signed by: Humphrey Mojica M.D. Narrative 05/16/2021 9:16 AM STAFF FORESTER EXAM: ?? XR CHEST 1 VIEW DATE: [...] previous. Electronically signed by: Humphrey Mojica M.D. us Varsha Shayleemisha Crowder ESCROW CLERK IMG XR PROCEDURES Final Re sult * POCT glucose (05/16/2021 2:43 AM STAFF FORESTER) Glucose, POC 95 70 - 199 mg/dL [facility] Blood 05/16/2021 2:43 AM STAFF FORESTER 05/16/2021 2:43 AM STAFF FORESTER us Rhina Granados MD LAB POCT ORDERABLES - DEVICE Final Result Performing Organization Address [facility]/ZIP Co de Phone Number [facility] [address] [address] [facility] [place] [address] * POCT glucose (05/15/2021 8:42 PM STAFF FORESTER) Glucose, POC 177 70 - 199 mg/dL [facility] Blood 05/15/2021 8:42 PM STAFF FORESTER 05/15/2021 8:42 PM STAFF FORESTER Rhina Granados MD LAB POCT ORDERABLES - DEVICE Final Result Performing Organization Address [facility] Co de Phone Number [facility] [address] [address] [facility] [place] [address] * (ABNORMAL) POCT glucose (05/15/2021 5:05 PM STAFF FORESTER) Glucose, POC 217(H) 70 - 199 mg/dL [facility] Blood 05/15/2021 5:05 PM STAFF FORESTER 05/15/2021 5:05 PM STAFF FORESTER Rhina Granados MD LAB POCT ORDERABLES - DEVICE Final Result Performing Organization Address [facility] Co de Phone Number [facility] [address] [address] [facility] [place] [address] * POCT glucose (05/15/2021 12:06 PM STAFF FORESTER) Glucose, POC 189 70 - 199 mg/dL [facility] Blood 05/15/2021 12:0 6 PM STAFF FORESTER 05/15/2021 12:06 PM STAFF FORESTER us Rhina Granados MD LAB POCT ORDERABLES - DEVICE Final Result Performing Organization Address [facility] Co de Phone Number [facility]IK DON [address] [place] [address] * POCT glucose (05/15/2021 7:30 AM STAFF FORESTER) Glucose, POC 127 70 - 199 mg/dL [facility] Blood 05/15/2021 7:30 AM STAFF FORESTER 05/15/2021 7:30 AM STAFF FORESTER Rhina Granados MD LAB POCT ORDERABLES - DEVICE Final Result Performing Organization Address [facility] Phone Number [facility] [address] [place] [address] * XR Chest 1 View (05/15/2021 6:02 AM STAFF FORESTER) Anatomical Region Laterality Modality Body, Chest N/A Computed Radiogr aphy 05/15/2021 9:02 AM STAFF FORESTER Impressions 05/15/2021 9:02 AM STAFF FORESTER Borderline cardiomegaly with no failure. Electronically signed by: Elvira Blackman M.D. Narrative 05/15/2021 9:02 AM STAFF FORESTER EXAMINATION: XR CHEST 1 VIEW HISTORY: The patient is a 60-year-old male who has had prior cardiac surgery. Comparison made with the previous study dated 05/14/2021. TECHNIQUE: AP portable view of the chest. FINDINGS: Borderline cardiomegaly with aortic atherosclerosis. ??No failure. ??No active infiltrate. ??The distal tip of a retracted [place]Radha catheter is in the proximal superior vena [...] infiltrate. The distal tip of a retracted [place]Radha catheter is in the proximal superior vena cava. IMPRESSION: Borderline cardiomegaly with no failure. Electronically signed by: Elvira Blackman M.D. us Varsha Crowder ESCROW CLERK IMG XR PROCEDURES Final Re sult * eGFR (05/15/2021 5:33 AM STAFF FORESTER) eGFR 103 mL/min/1.7 3 m2 [facility] Comment: Interpretive Data Reference Interval Normal ?>/= 90 mL/min/1.73m2 Mildly decreased* ? 60 - 89 mL/min/1.73m2 Mildly to moderately decreased ?45 - 59 mL/min/1.73m2 Moderately to severely decreased ??30 - 44 mL/min/1.73m2 Severely decreased ?15 - 29 mL/min/1.73m2 Kidney Failure ?< 15 ??mL/min/1.73m2 *Relative to young adult level Estimated glomerular filtration rate is determined by the CKD-EPI equation recommended by the National Kidney Foundation (KDIGO 2012 Clinical Practice Guideline for the Evaluation and Management of Chronic Kidney Disease. Kidney Intnl Suppl Jun 2012;3:1). The CKD-EPI equation should not be used for patients with unstable renal function and has not been validated in children and those over 70. Current interpretive data was last reviewed 2020 Blood 05/15/2021 5:33 AM STAFF FORESTER 05/15/2021 5:33 AM STAFF FORESTER us Rhina Granados MD LAB BLOOD ORDERABLES Final R esult [facility] DON [address] [address] [facility] [place] [address] * Magnesium (05/15/2021 5:33 AM STAFF FORESTER) Pathologist [facility] Magnesium 1.7 1.4 - 2.5 mg/dL [facility] Blood 05/15/2021 5:33 AM STAFF FORESTER 05/15/2021 5:33 AM STAFF FORESTER Silviano Huddleston ESCROW CLERK LAB BLOOD ORDERABLES Final Result Performing Organization Address [facility] de Phone Number [facility] DON [address] [address] [facility] [place] [address] * Phosphorus (05/15/2021 5:33 AM STAFF FORESTER) Pathologist [facility] Phosphorus, pl 3.0 2.3 - 4.5 mg/dL [facility] Blood 05/15/2021 5:33 AM STAFF FORESTER 05/15/2021 5:33 AM STAFF FORESTER Silviano Hdudleston ESCROW CLERK LAB BLOOD ORDERABLES Final Result Performing Organization Address [facility] Phone Number [facility] DON [address] [address] [facility] [place] [address] * (ABNORMAL) Basic metabolic panel (05/15/2021 5:33 AM STAFF FORESTER) Pathologist [facility] Sodium 131(L) 135 - 145 mmol/L [facility] Potassium, pl 3.8 3.3 - 4.9 mmol/L [facility] Chloride 98 97 - 110 mmol/L [facility] CO2 21(L) 22 - 32 mmol/L [facility] Anion gap 12 2 - 15 mmol/L [facility] BUN 22 8 - 25 mg/dL [facility] Creatinine 0.70(L) 0.80 - 1.30 mg/dL [facility] Glucose 117 70 - 199 mg/dL [facility] Comment: Interpretive Data Fasting glucose >/= 126 [...] interpretive data was last revised 2017. Calcium 8.3(L) 8.5 - 10.3 mg/dL [facility] Blood 05/15/2021 5:33 AM STAFF FORESTER 05/15/2021 5:33 AM STAFF FORESTER us Rhina Granados MD LAB BLOOD ORDERABLES Final R esult [facility] [address] [place] [address] * (ABNORMAL) CBC without differential (05/15/2021 5:32 AM STAFF FORESTER) WBC 9.4 3.8 - 9.9 K/cumm [facility] Hgb 10.7(L) 13.0 - 17.5 g/dL [facility] Hct 32.2(L) 38.9 - 50.3 % [facility] Plt 270 150 - 400 K/cumm [facility] MPV 11.8 9.1 - 12.3 fL [facility] RBC 3.52(L) 4.30 - 5.80 M/cumm [facility] MCV 91.5 81.3 - 96.4 fL [facility] MCH 30.4 27.1 - 33.3 pg [facility] MCHC 33.2 32.3 - 35.7 g/dL [facility] RDW CV 13.4 11.1 - 14.9 % [facility] RDW SD 45.4 35.7 - 48.1 fL [facility] NRBC abs 0.00 0.00 - 0.01 K/cumm [facility] Blood 05/15/2021 5:32 AM STAFF FORESTER 05/15/2021 5:32 AM STAFF FORESTER us Rhina Granados MD LAB BLOOD ORDERABLES Final R esult Performing Organization Address City/[facility]/ZIP Co de Phone Number [facility] DON [address] [address] [facility] [address] [place], [place] [id number] * POCT glucose (05/15/2021 2:40 AM STAFF FORESTER) Glucose, POC 102 70 - 199 mg/dL [facility] Blood 05/15/2021 2:40 AM STAFF FORESTER 05/15/2021 2:40 AM STAFF FORESTER Rhnia Granados MD LAB POCT ORDERABLES - DEVICE Final Result Performing Organization Address [facility] Co de Phone Number [facility] DON [address] [address] [facility] [place] [address] * POCT glucose (05/14/2021 10:07 PM STAFF FORESTER) Glucose, POC 131 70 - 199 mg/dL [facility] Blood 05/14/2021 10:0 7 PM STAFF FORESTER 05/14/2021 10:07 PM STAFF FORESTER Rhina Granados MD LAB POCT ORDERABLES - DEVICE Final Result Performing Organization Address [facility] Co de Phone Number [facility] DON [address] [place] [address] * (ABNORMAL) POCT glucose (05/14/2021 5:12 PM STAFF FORESTER) Glucose, POC 219(H) 70 - 199 mg/dL [facility] Blood 05/14/2021 5:12 PM STAFF FORESTER 05/14/2021 5:12 PM STAFF FORESTER Rhina Granados MD LAB POCT ORDERABLES - DEVICE Final Result Performing Organization Address City/[facility] Co de Phone Number [facility] DON [address] [place] [address] * POCT glucose (05/14/2021 1:13 PM STAFF FORESTER) Glucose, POC 153 70 - 199 mg/dL [facility] Blood 05/14/2021 1:13 PM STAFF FORESTER 05/14/2021 1:13 PM STAFF FORESTER Rhina Granados MD LAB POCT ORDERABLES - DEVICE Final Result Performing Organization Address [facility] de Phone Number [facility] [address] [address] [place] [address] * POCT glucose (05/14/2021 11:47 AM STAFF FORESTER) Glucose, POC 150 70 - 199 mg/dL [facility] Blood 05/14/2021 11:4 7 AM STAFF FORESTER 05/14/2021 11:47 AM STAFF FORESTER Rhina Granados MD LAB POCT ORDERABLES - DEVICE Final Result Performing Organization Address [facility] de Phone Number [facility] [address] [address] [facility] [place] [address] * eGFR (05/14/2021 9:22 AM STAFF FORESTER) Pathologist [facility] eGFR 111 mL/min/1.7 3 m2 [facility] Comment: Interpretive Data Reference Interval Normal ?>/= 90 mL/min/1.73m2 Mildly decreased* ? 60 - 89 mL/min/1.73m2 Mildly to moderately decreased ?45 - 59 mL/min/1.73m2 Moderately to severely decreased ??30 - 44 mL/min/1.73m2 Severely decreased ?15 - 29 mL/min/1.73m2 Kidney Failure ?< 15 ??mL/min/1.73m2 *Relative to young adult level Estimated glomerular filtration rate is determined by the CKD-EPI equation recommended by the National Kidney Foundation (KDIGO 2012 Clinical Practice Guideline for the Evaluation and Management of Chronic Kidney Disease. Kidney Intnl Suppl Jun 2012;3:1). The CKD-EPI equation should not be used for patients with unstable renal function and has not been validated in children and those over 70. Current interpretive data was last reviewed 2020 Blood 05/14/2021 9:22 AM STAFF FORESTER 05/14/2021 10:27 AM STAFF FORESTER Rhina Granados MD LAB BLOOD ORDERABLES Final R esult Performing Organization Address City/[facility] Co de Phone Number [facility] [address] [facility] [place] [address] * Magnesium (05/14/2021 9:22 AM STAFF FORESTER) Magnesium 1.8 1.4 - 2.5 mg/dL [facility] Blood 05/14/2021 9:22 AM STAFF FORESTER 05/14/2021 10:27 AM STAFF FORESTER Silviano Huddleston ESCROW CLERK LAB BLOOD ORDERABLES Final Result Performing Organization Address [facility] [facility] Co de Phone Number [facility] [address] [facility] [place] [address] * Phosphorus (05/14/2021 9:22 AM STAFF FORESTER) Phosphorus, pl 2.6 2.3 - 4.5 mg/dL [facility] Blood 05/14/2021 9:22 AM STAFF FORESTER 05/14/2021 10:27 AM STAFF FORESTER Silviano Huddleston ESCROW CLERK LAB BLOOD ORDERABLES Final Result Performing Organization Address City/[facility] Co de Phone Number [facility] [address] [facility] [address] [place], [place] [id number] * (ABNORMAL) CBC without differential (05/14/2021 9:22 AM STAFF FORESTER) WBC 8.8 3.8 - 9.9 K/cumm [facility] Hgb 10.2(L) 13.0 - 17.5 g/dL [facility] Hct 30.2(L) 38.9 - 50.3 % [facility] Plt 271 150 - 400 K/cumm [facility] MPV 12.0 9.1 - 12.3 fL [facility] RBC 3.30(L) 4.30 - 5.80 M/cumm [facility] MCV 91.5 81.3 - 96.4 fL [facility] MCH 30.9 27.1 - 33.3 pg [facility] MCHC 33.8 32.3 - 35.7 g/dL [facility] RDW CV 13.3 11.1 - 14.9 % [facility] RDW SD 44.8 35.7 - 48.1 fL [facility] NRBC abs 0.00 0.00 - 0.01 K/cumm [facility] Blood 05/14/2021 9:22 AM STAFF FORESTER 05/14/2021 9:22 AM STAFF FORESTER Rhina Granados MD LAB BLOOD ORDERABLES Final R esult [facility] [address] [place] [address] * (ABNORMAL) Basic metabolic panel (05/14/2021 9:22 AM STAFF FORESTER) Sodium 129(L) 135 - 145 mmol/L [facility] Potassium, pl 4.0 3.3 - 4.9 mmol/L [facility] Chloride 97 97 - 110 mmol/L [facility] CO2 20(L) 22 - 32 mmol/L [facility] Anion gap 12 2 - 15 mmol/L [facility] BUN 16 8 - 25 mg/dL [facility] Creatinine 0.59(L) 0.80 - 1.30 mg/dL [facility] Glucose 148 70 - 199 mg/dL [facility] Comment: Interpretive Data Fasting glucose >/= 126 [...] interpretive data was last revised 2017. Calcium 8.4(L) 8.5 - 10.3 mg/dL [facility] Blood 05/14/2021 9:22 AM STAFF FORESTER 05/14/2021 10:27 AM STAFF FORESTER Rhina Granados MD LAB BLOOD ORDERABLES Final R esult Performing Organization Address [facility] Co de Phone Number [facility] [address] [facility] [place] [address] * POCT glucose (05/14/2021 9:07 AM STAFF FORESTER) Glucose, POC 143 70 - 199 mg/dL [facility] Blood 05/14/2021 9:07 AM STAFF FORESTER 05/14/2021 9:07 AM STAFF FORESTER Rhina Granados MD LAB POCT ORDERABLES - DEVICE Final Result Performing Organization Address [facility] Co de Phone Number [facility] [address] [facility] [place] [address] * POCT glucose (05/14/2021 6:43 AM STAFF FORESTER) Glucose, POC 149 70 - 199 mg/dL [facility] Blood 05/14/2021 6:43 AM STAFF FORESTER 05/14/2021 6:43 AM STAFF FORESTER Rhina Granados MD LAB POCT ORDERABLES - DEVICE Final Result Performing Organization Address [facility] Co de Phone Number [facility] [address] [place] [address] * XR Chest 1 View (05/14/2021 6:07 AM STAFF FORESTER) Anatomical Region Laterality Modality Body, Chest N/A Computed Radiogr aphy 05/14/2021 8:33 AM STAFF FORESTER Impressions 05/14/2021 8:33 AM STAFF FORESTER Mild vascular congestion. Electronically signed by: Elvira Blackman M.D. Narrative 05/14/2021 8:33 AM STAFF FORESTER EXAMINATION: XR CHEST 1 VIEW HISTORY: The patient is a 60-year-old male who has had prior bypass surgery. Comparison made with the previous study dated 05/09/2021. TECHNIQUE: AP portable view of the chest. FINDINGS: Borderline cardiomegaly with aortic atherosclerosis. ??Slight haziness of the vascular markings. ??No focal infiltrate. ??The distal tip of a retracted [place]-Radha catheter is in the superior vena cava. Procedure Note Elvira Blackman MD - 05/14/2021 EXAMINATION: XR CHEST 1 VIEW HISTORY: The patient is a 60-year-old male who has had prior bypass surgery. Comparison made with the previous study dated 05/09/2021. TECHNIQUE: AP portable view of the chest. FINDINGS: Borderline cardiomegaly with aortic atherosclerosis. Slight haziness of the vascular markings. No focal infiltrate. The distal tip of a retracted [place]-Radha catheter is in the superior vena cava. IMPRESSION: Mild vascular congestion. Electronically signed by: Elvira Blackman M.D. us Varsha Crowder ESCROW CLERK IMG XR PROCEDURES Final Re sult * POCT glucose (05/13/2021 8:13 PM STAFF FORESTER) Glucose, POC 174 70 - 199 mg/dL [facility] Blood 05/13/2021 8:13 PM STAFF FORESTER 05/13/2021 8:13 PM STAFF FORESTER us Rhina Granados MD LAB POCT ORDERABLES - DEVICE Final Result [facility] [address] [place] [address] * POCT glucose (05/13/2021 5:24 PM STAFF FORESTER) Glucose, POC 194 70 - 199 mg/dL [facility] Blood 05/13/2021 5:24 PM STAFF FORESTER 05/13/2021 5:24 PM STAFF FORESTER us Rhina Granados MD LAB POCT ORDERABLES - DEVICE Final Result [facility] [address] [place] [address] * CT Abdomen Pelvis WO Contrast (05/13/2021 2:31 PM STAFF FORESTER) Anatomical Region Laterality Modality Body N/A Computed Tomogra phy 05/13/2021 2:45 PM STAFF FORESTER Impressions 05/13/2021 2:45 PM STAFF FORESTER Hemorrhagic contents within the urinary bladder which also contains a Osorio catheter Electronically signed by: Deandre Lomeli M.D. Narrative 05/13/2021 2:45 PM STAFF FORESTER EXAMINATION: CT OF THE ABDOMEN AND PELVIS WITHOUT CONTRAST CLINICAL HISTORY: Abdominal pain COMPARISON: None TECHNIQUE: Axial CT imaging of the abdomen and pelvis performed without oral or intravenous contrast. ??2-D Reformatted images are obtained. Evaluation of solid organs, bowel wall and vascular structures is limited due to the lack of IV contrast. FINDINGS: LOWER THORAX: patchy infiltrate in the left base with reticular scarring and atelectasis. ??Trace left pleural effusion LIVER: Normal in appearance as visualized. BILIARY: Normal appearance of the gallbladder with no biliary ductal dilatation. as visualized. SPLEEN: Normal in appearance as visualized. PANCREAS: Normal in appearance ADRENALS: Normal in appearance KIDNEYS: Normal renal outlines. ??No sign of hydronephrosis. Occasional small cyst(s) are seen in the left kidney.. GI TRACT: The bowel is normal in caliber. No free intraperitoneal air is present. ??Fecal loading of the distal colon APPENDIX: Normal in appearance ABDOMINAL WALL: Unremarkable RETROPERITONEUM/LYMPH/MESENTERIC NODES: No retroperitoneal or mesenteric lymphadenopathy identified. VESSELS: ??Minor after carotid vascular plaque.. PELVIC ORGANS: There is a moderate amount of hyperdense contents within the urinary bladder surrounding the Osorio catheter consistent with hemorrhage. ??There is also a small amount of air from Osorio placement.. ??This may obscure some subtle bladder wall abnormalities. BONES: The visualized osseous structures are intact. No suspicious osteolytic or osteoblastic lesions. . ?? Procedure Note Deandre Lomeli MD - 05/13/2021 EXAMINATION: CT OF THE ABDOMEN AND PELVIS WITHOUT CONTRAST CLINICAL HISTORY: Abdominal pain COMPARISON: None TECHNIQUE: Axial CT imaging of the abdomen and pelvis performed without oral or intravenous contrast. 2-D Reformatted images are obtained. Evaluation of solid organs, bowel wall and vascular structures is limited due to the lack of IV contrast. FINDINGS: LOWER THORAX: patchy infiltrate in the left base with reticular scarring and atelectasis. Trace left pleural effusion LIVER: Normal in appearance as visualized. BILIARY: Normal appearance of the gallbladder with no biliary ductal dilatation. as visualized. SPLEEN: Normal in appearance as visualized. PANCREAS: Normal in appearance ADRENALS: Normal in appearance KIDNEYS: Normal renal outlines. No sign of hydronephrosis. Occasional small cyst(s) are seen in the left kidney.. GI TRACT: The bowel is normal in caliber. No free intraperitoneal air is present. Fecal loading of the distal colon APPENDIX: Normal in appearance ABDOMINAL WALL: Unremarkable RETROPERITONEUM/LYMPH/MESENTERIC NODES: No retroperitoneal or mesenteric lymphadenopathy identified. VESSELS: Minor after carotid vascular plaque.. PELVIC ORGANS: There is a moderate amount of hyperdense contents within the urinary bladder surrounding the Osorio catheter consistent with hemorrhage. There is also a small amount of air from Osorio placement.. This may obscure some subtle bladder wall abnormalities. BONES: The visualized osseous structures are intact. No suspicious osteolytic or osteoblastic lesions. . IMPRESSION: Hemorrhagic contents within the urinary bladder which also contains a Osorio catheter Electronically signed by: Deandre Lomeli M.D. Braulio Ortega MD IMG CT PROCEDURES Final Result * (ABNORMAL) POCT glucose (05/13/2021 8:16 AM STAFF FORESTER) Glucose, POC 210(H) 70 - 199 mg/dL [facility] Blood 05/13/2021 8:16 AM STAFF FORESTER 05/13/2021 8:16 AM STAFF FORESTER Rhina Granados MD LAB POCT ORDERABLES - DEVICE Final Result Performing Organization Address City/[facility]/ZIP Co de Phone Number [facility] [address] [place] [address] * eGFR (05/13/2021 6:13 AM STAFF FORESTER) eGFR 100 mL/min/1.7 3 m2 [facility] Comment: Interpretive Data Reference Interval Normal ?>/= 90 mL/min/1.73m2 Mildly decreased* ? 60 - 89 mL/min/1.73m2 Mildly to moderately decreased ?45 - 59 mL/min/1.73m2 Moderately to severely decreased ??30 - 44 mL/min/1.73m2 Severely decreased ?15 - 29 mL/min/1.73m2 Kidney Failure ?< 15 ??mL/min/1.73m2 *Relative to young adult level Estimated glomerular filtration rate is determined by the CKD-EPI equation recommended by the National Kidney Foundation (KDIGO 2012 Clinical Practice Guideline for the Evaluation and Management of Chronic Kidney Disease. Kidney Intnl Suppl Jun 2012;3:1). The CKD-EPI equation should not be used for patients with unstable renal function and has not been validated in children and those over 70. Current interpretive data was last reviewed 2020 Blood 05/13/2021 6:13 AM STAFF FORESTER 05/13/2021 6:13 AM STAFF FORESTER us Rhina Granados MD LAB BLOOD ORDERABLES Final R esult Performing Organization Address City/[facility]/ZIP Co de Phone Number [facility] [address] [place], [place] [id number] * Magnesium (05/13/2021 6:13 AM STAFF FORESTER) Magnesium 2.1 1.4 - 2.5 mg/dL [facility] Blood 05/13/2021 6:13 AM STAFF FORESTER 05/13/2021 6:13 AM STAFF FORESTER Silviano Saldivar Flaquito ESCROW CLERK LAB BLOOD ORDERABLES Final Result Performing Organization Address City/[facility]/ZIP Co de Phone Number [facility] [address] [facility] [place] [address] * Phosphorus (05/13/2021 6:13 AM STAFF FORESTER) Pathologist [facility] Phosphorus, pl 2.7 2.3 - 4.5 mg/dL [facility] Blood 05/13/2021 6:13 AM STAFF FORESTER 05/13/2021 6:13 AM STAFF FORESTER Silvianoreed Saldivar Flaquito ESCROW CLERK LAB BLOOD ORDERABLES Final Result Performing Organization Address [facility] de Phone Number [facility] [address] [place] [address] * (ABNORMAL) Basic metabolic panel (05/13/2021 6:13 AM STAFF FORESTER) Pathologist [facility] Sodium 127(L) 135 - 145 mmol/L [facility] Potassium, pl 3.5 3.3 - 4.9 mmol/L [facility] Chloride 94(L) 97 - 110 mmol/L [facility] CO2 22 22 - 32 mmol/L [facility] Anion gap 11 2 - 15 mmol/L [facility] BUN 27(H) 8 - 25 mg/dL [facility] Creatinine 0.76(L) 0.80 - 1.30 mg/dL [facility] Glucose 249(H) 70 - 199 mg/dL [facility] Comment: Interpretive Data Fasting glucose >/= 126 [...] interpretive data was last revised 2017. Calcium 8.1(L) 8.5 - 10.3 mg/dL [facility] Blood 05/13/2021 6:13 AM STAFF FORESTER 05/13/2021 6:13 AM STAFF FORESTER Rhina Granados MD LAB BLOOD ORDERABLES Final R esult Performing Organization Address City/[facility]/ZIP Co de Phone Number [facility] [address] [place] [address] * (ABNORMAL) CBC without differential (05/13/2021 6:12 AM STAFF FORESTER) WBC 9.8 3.8 - 9.9 K/cumm [facility] Hgb 9.7(L) 13.0 - 17.5 g/dL [facility] Hct 29.8(L) 38.9 - 50.3 % [facility] Plt 253 150 - 400 K/cumm [facility] MPV 11.8 9.1 - 12.3 fL [facility] RBC 3.26(L) 4.30 - 5.80 M/cumm [facility] MCV 91.4 81.3 - 96.4 fL [facility] MCH 29.8 27.1 - 33.3 pg [facility] MCHC 32.6 32.3 - 35.7 g/dL [facility] RDW CV 13.2 11.1 - 14.9 % [facility] RDW SD 43.4 35.7 - 48.1 fL [facility] NRBC abs 0.00 0.00 - 0.01 K/cumm [facility] Blood 05/13/2021 6:12 AM STAFF FORESTER 05/13/2021 6:12 AM STAFF FORESTER Rhina Granados MD LAB BLOOD ORDERABLES Final R esult Performing Organization Address City/[facility]/ZIP Co de Phone Number [facility] [address] [address] * XR Chest 1 View (05/13/2021 6:00 AM STAFF FORESTER) Anatomical Region Laterality Modality Body, Chest N/A Computed Radiogr aphy 05/13/2021 8:41 AM STAFF FORESTER Impressions 05/13/2021 8:41 AM STAFF FORESTER Of failure or pneumothorax. Increasing left effusion. Electronically signed by: Deacon Cummings M.D. Narrative 05/13/2021 8:41 AM STAFF FORESTER EXAMINATION: XR CHEST 1 VIEW DATE: 05/13/2021 4:05 AM HISTORY: Cardiac surgery follow-up FINDINGS:Compared with study of the prior day, cardiomegaly with postsurgical changes stable. Central venous sheath superior vena cava. There is no failure or pneumothorax. Increasing left pleural fluid with volume loss left lung base. Procedure Note Deacon Cummings MD - 05/13/2021 EXAMINATION: XR CHEST 1 VIEW DATE: 05/13/2021 4:05 AM HISTORY: Cardiac surgery follow-up FINDINGS:Compared with study of the prior day, cardiomegaly with postsurgical changes stable. Central venous sheath superior vena cava. There is no failure or pneumothorax. Increasing left pleural fluid with volume loss left lung base. IMPRESSION: Of failure or pneumothorax. Increasing left effusion. Electronically signed by: Deacon Cummings M.D. us Varhsa Crowder ESCROW CLERK IMG XR PROCEDURES Final Re sult * (ABNORMAL) POCT glucose (05/13/2021 1:40 AM STAFF FORESTER) Glucose, POC 258(H) 70 - 199 mg/dL [facility] Blood 05/13/2021 1:40 AM STAFF FORESTER 05/13/2021 1:40 AM STAFF FORESTER us Rhina Granados MD LAB POCT ORDERABLES - DEVICE Final Result [facility] [address] [place] [address] * POCT glucose (05/12/2021 10:04 PM STAFF FORESTER) Glucose, POC 188 70 - 199 mg/dL [facility] Blood 05/12/2021 10:0 4 PM STAFF FORESTER 05/12/2021 10:04 PM STAFF FORESTER Rhina Granados MD LAB POCT ORDERABLES - DEVICE Final Result Performing Organization Address [facility] Co de Phone Number [facility] [address] [facility] [address] [place], [place] [id number] * POCT glucose (05/12/2021 5:43 PM STAFF FORESTER) Glucose, POC 171 70 - 199 mg/dL [facility] Blood 05/12/2021 5:43 PM STAFF FORESTER 05/12/2021 5:43 PM STAFF FORESTER Rhina Granados MD LAB POCT ORDERABLES - DEVICE Final Result Performing Organization Address [facility] de Phone Number [facility] [address] [facility] [address] [place], [place] [phone] * (ABNORMAL) POCT glucose (05/12/2021 12:31 PM STAFF FORESTER) Glucose, POC 233(H) 70 - 199 mg/dL [facility] Blood 05/12/2021 12:3 1 PM STAFF FORESTER 05/12/2021 12:31 PM STAFF FORESTER Result [facility] Rhina Granados MD LAB POCT ORDERABLES - DEVICE Final Result Performing Organization Address [facility] de Phone Number [facility] [address] [facility] [place] [address] * (ABNORMAL) Protime-INR (05/12/2021 12:26 PM STAFF FORESTER) PT 14.0(H) 9.5 - 13.6 sec [facility] INR 1.3(H) 0.9 - 1.2 [facility] Comment: Interpretive data Oral anticoagulant therapeutic ranges: Venous thromboembolism prophylaxis or treatment: 2.0-3.0 CARDIOLOGY Standard range: 2.0-3.0 High-intensity range: 2.5-3.5 Refer to indication-specific guidelines for appropriate target ranges for prosthetic heart valve replacement. Current interpretive data was last revised on 2019. Blood 05/12/2021 12:2 6 PM STAFF FORESTER 05/12/2021 12:29 PM STAFF FORESTER Varsha Crowder NP LAB BLOOD ORDERABLES Final Result Performing Organization Address [facility] Co de Phone Number [facility] [address] [facility] [place] [address] * aPTT (05/12/2021 12:26 PM STAFF FORESTER) Pathologist [facility] aPTT 29 27 - 37 sec [facility] Comment: Interpretive Data Therapeutic heparin range: 60.0 - 94.0 seconds. Based on correlation with therapeutic heparin activity range of 0.3-0.7 Units/mL. Current interpretive data was last revised on 2020. Blood 05/12/2021 12:2 6 PM STAFF FORESTER 05/12/2021 12:29 PM STAFF FORESTER Varsha Crowder NP LAB BLOOD ORDERABLES Final Result Performing Organization Address [facility] de Phone Number [facility] [address] [facility] [place] [address] * (ABNORMAL) POCT glucose (05/12/2021 8:10 AM STAFF FORESTER) Glucose, POC 202(H) 70 - 199 mg/dL [facility] Blood 05/12/2021 8:10 AM STAFF FORESTER 05/12/2021 8:10 AM STAFF FORESTER Nalini Clayton MD LAB POCT ORDERABLES - DEVICE Fin al Result Performing Organization Address [facility] de Phone Number [facility] [address] [facility] [place] [address] * POCT glucose (05/12/2021 7:09 AM STAFF FORESTER) Glucose, POC 196 70 - 199 mg/dL [facility] Blood 05/12/2021 7:09 AM STAFF FORESTER 05/12/2021 7:09 AM STAFF FORESTER us Nalini Clayton MD LAB POCT ORDERABLES - DEVICE Fin al Result Performing Organization Address [facility] de Phone Number [facility] [address] [place] [address] * eGFR (05/12/2021 6:38 AM STAFF FORESTER) [facility] eGFR 99 mL/min/1.7 3 m2 [facility] Comment: Interpretive Data Reference Interval Normal ?>/= 90 mL/min/1.73m2 Mildly decreased* ? 60 - 89 mL/min/1.73m2 Mildly to moderately decreased ?45 - 59 mL/min/1.73m2 Moderately to severely decreased ??30 - 44 mL/min/1.73m2 Severely decreased ?15 - 29 mL/min/1.73m2 Kidney Failure ?< 15 ??mL/min/1.73m2 *Relative to young adult level Estimated glomerular filtration rate is determined by the CKD-EPI equation recommended by the National Kidney Foundation (KDIGO 2012 Clinical Practice Guideline for the Evaluation and Management of Chronic Kidney Disease. Kidney Intnl Suppl Jun 2012;3:1). The CKD-EPI equation should not be used for patients with unstable renal function and has not been validated in children and those over 70. Current interpretive data was last reviewed 2020 Blood 05/12/2021 6:38 AM STAFF FORESTER 05/12/2021 6:38 AM STAFF FORESTER us Rhina Granados MD LAB BLOOD ORDERABLES Final R esult Performing Organization Address [facility] Co de Phone Number [facility] [address] [facility] [place] [address] * Magnesium (05/12/2021 6:38 AM STAFF FORESTER) [facility] Magnesium 1.9 1.4 - 2.5 mg/dL [facility] Blood 05/12/2021 6:38 AM STAFF FORESTER 05/12/2021 6:38 AM STAFF FORESTER Silviano Huddleston ESCROW CLERK LAB BLOOD ORDERABLES Final Result [facility] [address] [place] [address] * Phosphorus (05/12/2021 6:38 AM STAFF FORESTER) [facility] Phosphorus, pl 3.6 2.3 - 4.5 mg/dL [facility] Blood 05/12/2021 6:38 AM STAFF FORESTER 05/12/2021 6:38 AM STAFF FORESTER Silviano Huddleston ESCROW CLERK LAB BLOOD ORDERABLES Final Result [facility] [address] [facility] [place] [address] * (ABNORMAL) CBC without differential (05/12/2021 6:38 AM STAFF FORESTER) [facility] WBC 13.8(H) 3.8 - 9.9 K/cumm [facility] Hgb 10.7(L) 13.0 - 17.5 g/dL [facility] Hct 32.7(L) 38.9 - 50.3 % [facility] Plt 304 150 - 400 K/cumm [facility] MPV 11.6 9.1 - 12.3 fL [facility] RBC 3.58(L) 4.30 - 5.80 M/cumm [facility] MCV 91.3 81.3 - 96.4 fL [facility] MCH 29.9 27.1 - 33.3 pg [facility] MCHC 32.7 32.3 - 35.7 g/dL [facility] RDW CV 13.4 11.1 - 14.9 % [facility] RDW SD 44.9 35.7 - 48.1 fL [facility] NRBC abs 0.00 0.00 - 0.01 K/cumm [facility] Blood 05/12/2021 6:38 AM STAFF FORESTER 05/12/2021 6:38 AM STAFF FORESTER Rhina Granados MD LAB BLOOD ORDERABLES Final R esult [facility] [address] [place] [address] * (ABNORMAL) Basic metabolic panel (05/12/2021 6:38 AM STAFF FORESTER) Sodium 130(L) 135 - 145 mmol/L [facility] Potassium, pl 3.5 3.3 - 4.9 mmol/L [facility] Chloride 94(L) 97 - 110 mmol/L [facility] CO2 22 22 - 32 mmol/L [facility] Anion gap 14 2 - 15 mmol/L [facility] BUN 26(H) 8 - 25 mg/dL [facility] Creatinine 0.78(L) 0.80 - 1.30 mg/dL [facility] Glucose 163 70 - 199 mg/dL [facility] Comment: Interpretive Data Fasting glucose >/= 126 [...] interpretive data was last revised 2017. Calcium 8.6 8.5 - 10.3 mg/dL [facility] Blood 05/12/2021 6:38 AM STAFF FORESTER 05/12/2021 6:38 AM STAFF FORESTER Rhina Granados MD LAB BLOOD ORDERABLES Final R esult Performing Organization Address [facility] Co de Phone Number [facility] [address] [place] [address] * XR Chest 1 View (05/12/2021 5:33 AM STAFF FORESTER) Anatomical Region Laterality Modality Body, Chest N/A Computed Radiogr aphy 05/12/2021 8:50 AM STAFF FORESTER Impressions 05/12/2021 8:50 AM STAFF FORESTER Stable cardiomegaly without failure or pneumothorax. Atelectasis left base. Electronically signed by: Deacon Cummings M.D. Narrative 05/12/2021 8:50 AM STAFF FORESTER EXAMINATION: XR CHEST 1 VIEW DATE: 05/12/2021 3:50 AM HISTORY: 60-year-old man follow-up cardiac surgery FINDINGS:Comparison is made with the study of the previous day. Postsurgical changes with cardiomegaly stable. No failure fluid. No pneumothorax. Minor atelectasis left base. Central sheath superior vena cava Procedure Note Deacon Cummings MD - 05/12/2021 EXAMINATION: XR CHEST 1 VIEW DATE: 05/12/2021 3:50 AM HISTORY: 60-year-old man follow-up cardiac surgery FINDINGS:Comparison is made with the study of the previous day. Postsurgical changes with cardiomegaly stable. No failure fluid. No pneumothorax. Minor atelectasis left base. Central sheath superior vena cava IMPRESSION: Stable cardiomegaly without failure or pneumothorax. Atelectasis left base. Electronically signed by: Deacon Cummings M.D. us Varsha Crowder ESCROW CLERK IMG XR PROCEDURES Final Re sult * POCT glucose (05/12/2021 1:46 AM STAFF FORESTER) Glucose, POC 179 70 - 199 mg/dL [facility] Blood 05/12/2021 1:46 AM STAFF FORESTER 05/12/2021 1:46 AM STAFF FORESTER us Nalini Clayton MD LAB POCT ORDERABLES - DEVICE Fin al Result Performing Organization Address [facility] Co de Phone Number [facility] [address] [facility] [place] [address] * POCT glucose (05/11/2021 9:41 PM STAFF FORESTER) Glucose, POC 128 70 - 199 mg/dL [facility] Blood 05/11/2021 9:41 PM STAFF FORESTER 05/11/2021 9:41 PM STAFF FORESTER us Nalini Clayton MD LAB POCT ORDERABLES - DEVICE Fin al Result Performing Organization Address [facility] de Phone Number [facility] [address] [address] [facility] [place] [address] * POCT glucose (05/11/2021 6:22 PM STAFF FORESTER) Glucose, POC 142 70 - 199 mg/dL [facility] Blood 05/11/2021 6:22 PM STAFF FORESTER 05/11/2021 6:22 PM STAFF FORESTER us Nalini Clayton MD LAB POCT ORDERABLES - DEVICE Fin al Result Performing Organization Address [facility] de Phone Number [facility] [address] [facility] [place] [address] * (ABNORMAL) POCT glucose (05/11/2021 11:28 AM STAFF FORESTER) Glucose, POC 309(H) 70 - 199 mg/dL [facility] Blood 05/11/2021 11:2 8 AM STAFF FORESTER 05/11/2021 11:28 AM STAFF FORESTER us Nalini Clayton MD LAB POCT ORDERABLES - DEVICE Fin al Result Performing Organization Address [facility] Co de Phone Number [facility] [address] [facility] [place] [address] * POCT glucose (05/11/2021 8:59 AM STAFF FORESTER) Glucose, POC 172 70 - 199 mg/dL [facility] Blood 05/11/2021 8:59 AM STAFF FORESTER 05/11/2021 8:59 AM STAFF FORESTER us Nalini Clayton MD LAB POCT ORDERABLES - DEVICE Fin al Result [facility] [address] [facility] [place] [address] * XR Chest 1 View - Portable - in AM (05/11/2021 6:57 AM STAFF FORESTER) Anatomical Region Laterality Modality Body, Chest N/A Computed Radiogr aphy 05/11/2021 9:13 AM STAFF FORESTER Impressions 05/11/2021 9:13 AM STAFF FORESTER IMPRESSION: No failure. Electronically signed by: Elvira Blackman M.D. Narrative 05/11/2021 9:13 AM STAFF FORESTER EXAMINATION: XR CHEST 1 VIEW HISTORY: The patient is a 60-year-old male who has had cardiac surgery. Comparison made with the previous study dated 05/10/2021. TECHNIQUE: AP portable view of the chest. FINDINGS: Lungs clear. ??Heart not enlarged. ??Aortic atherosclerosis. ??No failure. ??The right IJ [place] catheter has been retracted with its tip in the distal superior vena cava. Procedure Note Elvira Blackman MD - 05/11/2021 EXAMINATION: XR CHEST 1 VIEW HISTORY: The patient is a 60-year-old male who has had cardiac surgery. Comparison made with the previous study dated 05/10/2021. TECHNIQUE: AP portable view of the chest. FINDINGS: Lungs clear. Heart not enlarged. Aortic atherosclerosis. No failure. The right IJ [place]ha catheter has been retracted with its tip in the distal superior vena cava. IMPRESSION: IMPRESSION: No failure. Electronically signed by: Elvira Blackman M.D. us Rhina Granados MD IMG XR PROCEDURES Final Resu lt * eGFR (05/11/2021 6:11 AM STAFF FORESTER) eGFR 94 mL/min/1.7 3 m2 [facility] Comment: Interpretive Data Reference Interval Normal ?>/= 90 mL/min/1.73m2 Mildly decreased* ? 60 - 89 mL/min/1.73m2 Mildly to moderately decreased ?45 - 59 mL/min/1.73m2 Moderately to severely decreased ??30 - 44 mL/min/1.73m2 Severely decreased ?15 - 29 mL/min/1.73m2 Kidney Failure ?< 15 ??mL/min/1.73m2 *Relative to young adult level Estimated glomerular filtration rate is determined by the CKD-EPI equation recommended by the National Kidney Foundation (KDIGO 2012 Clinical Practice Guideline for the Evaluation and Management of Chronic Kidney Disease. Kidney Intnl Suppl Jun 2012;3:1). The CKD-EPI equation should not be used for patients with unstable renal function and has not been validated in children and those over 70. Current interpretive data was last reviewed 2020 Blood 05/11/2021 6:11 AM STAFF FORESTER 05/11/2021 6:30 AM STAFF FORESTER us Rhina Granados MD LAB BLOOD ORDERABLES Final R esult Performing Organization Address City/[facility] Co de Phone Number [facility] [address] [place] [address] * Magnesium (05/11/2021 6:11 AM STAFF FORESTER) Magnesium 1.8 1.4 - 2.5 mg/dL [facility] Blood 05/11/2021 6:11 AM STAFF FORESTER 05/11/2021 6:27 AM STAFF FORESTER us Silviano Huddleston NP LAB BLOOD ORDERABLES Final Result Performing Organization Address City/[facility] Co de Phone Number [facility] [address] [place] [address] * Phosphorus (05/11/2021 6:11 AM STAFF FORESTER) Phosphorus, pl 3.5 2.3 - 4.5 mg/dL [facility] Blood 05/11/2021 6:11 AM STAFF FORESTER 05/11/2021 6:27 AM STAFF FORESTER Silviano Huddleston NP LAB BLOOD ORDERABLES Final Result Performing Organization Address City/[facility]/ZIP Co de Phone Number [facility] [address] [place] [address] * (ABNORMAL) CBC without differential (05/11/2021 6:11 AM STAFF FORESTER) WBC 17.3(H) 3.8 - 9.9 K/cumm [facility] Hgb 11.1(L) 13.0 - 17.5 g/dL [facility] Hct 33.6(L) 38.9 - 50.3 % [facility] Plt 330 150 - 400 K/cumm [facility] MPV 11.4 9.1 - 12.3 fL [facility] RBC 3.67(L) 4.30 - 5.80 M/cumm [facility] MCV 91.6 81.3 - 96.4 fL [facility] MCH 30.2 27.1 - 33.3 pg [facility] MCHC 33.0 32.3 - 35.7 g/dL [facility] RDW CV 13.3 11.1 - 14.9 % [facility] RDW SD 44.5 35.7 - 48.1 fL [facility] NRBC abs 0.00 0.00 - 0.01 K/cumm [facility] Blood 05/11/2021 6:11 AM STAFF FORESTER 05/11/2021 6:27 AM STAFF FORESTER Rhina Granados MD LAB BLOOD ORDERABLES Final R esult [facility] [address] [place] [address] * (ABNORMAL) Basic metabolic panel (05/11/2021 6:11 AM STAFF FORESTER) Sodium 132(L) 135 - 145 mmol/L [facility] Potassium, pl 3.5 3.3 - 4.9 mmol/L [facility] Chloride 95(L) 97 - 110 mmol/L [facility] CO2 23 22 - 32 mmol/L [facility] Anion gap 14 2 - 15 mmol/L [facility] BUN 24 8 - 25 mg/dL [facility] Creatinine 0.89 0.80 - 1.30 mg/dL [facility] Glucose 155 70 - 199 mg/dL [facility] Comment: Interpretive Data Fasting glucose >/= 126 [...] 2017. Calcium 8.8 8.5 - 10.3 mg/dL [facility] Blood 05/11/2021 6:11 AM STAFF FORESTER 05/11/2021 6:27 AM STAFF FORESTER us Rhina Granados MD LAB BLOOD ORDERABLES Final R esult Performing Organization Address [facility]/ZIP Co de Phone Number [facility] [address] [place] [address] * POCT glucose (05/11/2021 5:05 AM STAFF FORESTER) Glucose, POC 148 70 - 199 mg/dL [facility] Blood 05/11/2021 5:05 AM STAFF FORESTER 05/11/2021 5:05 AM STAFF FORESTER us Nalini Clayton MD LAB POCT ORDERABLES - DEVICE Fin al Result Performing Organization Address [facility]/ZIP Co de Phone Number [facility] [address] [facility] [place] [address] * (ABNORMAL) POCT glucose (05/11/2021 1:22 AM STAFF FORESTER) Glucose, POC 234(H) 70 - 199 mg/dL [facility] Blood 05/11/2021 1:22 AM STAFF FORESTER 05/11/2021 1:22 AM STAFF FORESTER us Nalini Clayton MD LAB POCT ORDERABLES - DEVICE Fin al Result Performing Organization Address [facility] Co de Phone Number [facility] [address] [place] [address] * (ABNORMAL) POCT glucose (05/10/2021 9:26 PM STAFF FORESTER) Glucose, POC 231(H) 70 - 199 mg/dL [facility] Blood 05/10/2021 9:26 PM STAFF FORESTER 05/10/2021 9:26 PM STAFF FORESTER us Nalini Clayton MD LAB POCT ORDERABLES - DEVICE Fin al Result Performing Organization Address [facility] de Phone Number [facility] [address] [place] [address] * (ABNORMAL) POCT glucose (05/10/2021 4:13 PM STAFF FORESTER) Glucose, POC 209(H) 70 - 199 mg/dL [facility] Blood 05/10/2021 4:13 PM STAFF FORESTER 05/10/2021 4:13 PM STAFF FORESTER us Nalini Clayton MD LAB POCT ORDERABLES - DEVICE Fin al Result Performing Organization Address [facility] Co de Phone Number [facility] [address] [place] [address] * (ABNORMAL) POCT glucose (05/10/2021 12:24 PM STAFF FORESTER) Glucose, POC 207(H) 70 - 199 mg/dL [facility] Blood 05/10/2021 12:2 4 PM STAFF FORESTER 05/10/2021 12:24 PM STAFF FORESTER us Nalini Clayton MD LAB POCT ORDERABLES - DEVICE Fin al Result Performing Organization Address [facility] de Phone Number [facility] [address] [facility] [place] [address] * (ABNORMAL) POCT glucose (05/10/2021 7:57 AM STAFF FORESTER) Glucose, POC 209(H) 70 - 199 mg/dL [facility] Blood 05/10/2021 7:57 AM STAFF FORESTER 05/10/2021 7:57 AM STAFF FORESTER us Nalini Clayton MD LAB POCT ORDERABLES - DEVICE Fin al Result Performing Organization Address [facility] de Phone Number [facility] [address] [address] [facility] [place] [address] * XR Chest 1 View - Portable - in AM (05/10/2021 6:55 AM STAFF FORESTER) Anatomical Region Laterality Modality Body, Chest N/A Computed Radiogr aphy 05/10/2021 8:47 AM STAFF FORESTER Impressions 05/10/2021 8:47 AM STAFF FORESTER Decreasing failure, atelectasis and left effusion. ?? Electronically signed by: Deandre Lomeli M.D. Narrative 05/10/2021 8:47 AM STAFF FORESTER EXAMINATION: XR CHEST 1 VIEW DATE: 05/10/2021 2:40 AM COMPARISON: 05/09/2021 HISTORY: 60-year-old man cardiac surgery follow-up FINDINGS:Compared with study the previous day, significant improvement. There is cardiomegaly with postsurgical changes with continued and decreasing failure. Bibasilar atelectasis with left pleural fluid decreasing. No pneumothorax. [place] catheter remains in place Procedure Note Deandre Lomeli MD - 05/10/2021 EXAMINATION: XR CHEST 1 VIEW DATE: 05/10/2021 2:40 AM COMPARISON: 05/09/2021 HISTORY: 60-year-old man cardiac surgery follow-up FINDINGS:Compared with study the previous day, significant improvement. There is cardiomegaly with postsurgical changes with continued and decreasing failure. Bibasilar atelectasis with left pleural fluid decreasing. No pneumothorax. [place] catheter remains in place IMPRESSION: Decreasing failure, atelectasis and left effusion. Electronically signed by: Deandre Lomeli M.D. us Rhina Granados MD IMG XR PROCEDURES Final Resu lt * POCT glucose (05/10/2021 5:14 AM STAFF FORESTER) Glucose, POC 188 70 - 199 mg/dL [facility] Blood 05/10/2021 5:14 AM STAFF FORESTER 05/10/2021 5:14 AM STAFF FORESTER us Nalini Clayton MD LAB POCT ORDERABLES - DEVICE Fin al Result [facility] [address] Department of Laboratories [place] [id number] * eGFR (05/10/2021 5:02 AM STAFF FORESTER) eGFR 92 mL/min/1.7 3 m2 [facility] Comment: Interpretive Data Reference Interval Normal ?>/= 90 mL/min/1.73m2 Mildly decreased* ? 60 - 89 mL/min/1.73m2 Mildly to moderately decreased ?45 - 59 mL/min/1.73m2 Moderately to severely decreased ??30 - 44 mL/min/1.73m2 Severely decreased ?15 - 29 mL/min/1.73m2 Kidney Failure ?< 15 ??mL/min/1.73m2 *Relative to young adult level Estimated glomerular filtration rate is determined by the CKD-EPI equation recommended by the National Kidney Foundation (KDIGO 2012 Clinical Practice Guideline for the Evaluation and Management of Chronic Kidney Disease. Kidney Intnl Suppl Jun 2012;3:1). The CKD-EPI equation should not be used for patients with unstable renal function and has not been validated in children and those over 70. Current interpretive data was last reviewed 2020 Blood 05/10/2021 5:02 AM STAFF FORESTER 05/10/2021 5:59 AM STAFF FORESTER Rhina Granados MD LAB BLOOD ORDERABLES Final R esult Performing Organization Address City/[facility]/ZIP Co de Phone Number [facility] [address] [place] [address] * Magnesium (05/10/2021 5:02 AM STAFF FORESTER) Magnesium 1.8 1.4 - 2.5 mg/dL [facility] Blood 05/10/2021 5:02 AM STAFF FORESTER 05/10/2021 5:59 AM STAFF FORESTER Silviano Huddleston NP LAB BLOOD ORDERABLES Final Result Performing Organization Address [facility] Co de Phone Number [facility] [address] [address] * Phosphorus (05/10/2021 5:02 AM STAFF FORESTER) Phosphorus, pl 3.9 2.3 - 4.5 mg/dL [facility] Blood 05/10/2021 5:02 AM STAFF FORESTER 05/10/2021 5:59 AM STAFF FORESTER Silviano Huddleston NP LAB BLOOD ORDERABLES Final Result Performing Organization Address [facility] Co de Phone Number [facility] [address] [place] [address] * (ABNORMAL) CBC without differential (05/10/2021 5:02 AM STAFF FORESTER) Pathologist [facility] WBC 21.2(H) 3.8 - 9.9 K/cumm [facility] Hgb 12.4(L) 13.0 - 17.5 g/dL [facility] Hct 37.7(L) 38.9 - 50.3 % [facility] Plt 344 150 - 400 K/cumm [facility] MPV 11.4 9.1 - 12.3 fL [facility] RBC 4.19(L) 4.30 - 5.80 M/cumm [facility] MCV 90.0 81.3 - 96.4 fL [facility] MCH 29.6 27.1 - 33.3 pg [facility] MCHC 32.9 32.3 - 35.7 g/dL [facility] CH RDW CV 13.5 11.1 - 14.9 % [facility] RDW SD 44.3 35.7 - 48.1 fL [facility] NRBC abs 0.00 0.00 - 0.01 K/cumm [facility] Blood 05/10/2021 5:02 AM STAFF FORESTER 05/10/2021 6:00 AM STAFF FORESTER us Rhina Granados MD LAB BLOOD ORDERABLES Final R esult [facility] [address] [place] [address] * (ABNORMAL) Basic metabolic panel (05/10/2021 5:02 AM STAFF FORESTER) Pathologist [facility] Sodium 129(L) 135 - 145 mmol/L [facility] Potassium, pl 3.6 3.3 - 4.9 mmol/L [facility] Chloride 90(L) 97 - 110 mmol/L [facility] CO2 25 22 - 32 mmol/L [facility] Anion gap 14 2 - 15 mmol/L [facility] BUN 23 8 - 25 mg/dL [facility] Creatinine 0.91 0.80 - 1.30 mg/dL [facility] Glucose 187 70 - 199 mg/dL [facility] Comment: Interpretive Data Fasting glucose >/= 126 [...] interpretive data was last revised 2017. Calcium 9.4 8.5 - 10.3 mg/dL [facility] Blood 05/10/2021 5:02 AM STAFF FORESTER 05/10/2021 5:59 AM STAFF FORESTER Rhina Granados MD LAB BLOOD ORDERABLES Final R esult Performing Organization Address [facility] Co de Phone Number [facility] [address] [facility] [place] [address] * (ABNORMAL) POCT glucose (05/10/2021 1:09 AM STAFF FORESTER) Glucose, POC 216(H) 70 - 199 mg/dL [facility] Blood 05/10/2021 1:09 AM STAFF FORESTER 05/10/2021 1:09 AM STAFF FORESTER Nalini Clayton MD LAB POCT ORDERABLES - DEVICE Fin al Result Performing Organization Address [facility] Co de Phone Number [facility] [address] [place] [address] * (ABNORMAL) POCT glucose (05/09/2021 10:52 PM STAFF FORESTER) Glucose, POC 257(H) 70 - 199 mg/dL [facility] Blood 05/09/2021 10:5 2 PM STAFF FORESTER 05/09/2021 10:52 PM STAFF FORESTER us Nalini Clayton MD LAB POCT ORDERABLES - DEVICE Fin al Result Performing Organization Address [facility] Co de Phone Number [facility] [address] [place] [address] * POCT glucose (05/09/2021 6:13 PM STAFF FORESTER) Glucose, POC 192 70 - 199 mg/dL [facility] Blood 05/09/2021 6:13 PM STAFF FORESTER 05/09/2021 6:13 PM STAFF FORESTER us Nalini Clayton MD LAB POCT ORDERABLES - DEVICE Fin al Result Performing Organization Address [facility] Co de Phone Number [facility] [address] [address] [facility] [place] [address] * (ABNORMAL) POCT glucose (05/09/2021 11:40 AM STAFF FORESTER) Glucose, POC 274(H) 70 - 199 mg/dL [facility] Blood 05/09/2021 11:4 0 AM STAFF FORESTER 05/09/2021 11:40 AM STAFF FORESTER us Nalini Clayton MD LAB POCT ORDERABLES - DEVICE Fin al Result Performing Organization Address [facility] Co de Phone Number [facility] [address] [address] [facility] [place] [address] * POCT glucose (05/09/2021 7:56 AM STAFF FORESTER) Glucose, POC 162 70 - 199 mg/dL [facility] Blood 05/09/2021 7:56 AM STAFF FORESTER 05/09/2021 7:56 AM STAFF FORESTER us Nalini Clayton MD LAB POCT ORDERABLES - DEVICE Fin al Result Performing Organization Address [facility] de Phone Number [facility] [address] [address] [facility] [place] [address] * XR Chest 1 View - Portable - in AM (05/09/2021 6:12 AM STAFF FORESTER) Anatomical Region Laterality Modality Body, Chest N/A Computed Radiogr aphy 05/09/2021 3:27 PM STAFF FORESTER Impressions 05/09/2021 3:27 PM STAFF FORESTER Decreasing failure, atelectasis and left effusion. ?? Electronically signed by: Deandre Lomeli M.D. Narrative 05/09/2021 3:27 PM STAFF FORESTER EXAMINATION: XR CHEST 1 VIEW DATE: 05/09/2021 4:10 AM HISTORY: 60-year-old man cardiac surgery follow-up FINDINGS:Compared with study the previous day, significant improvement. There is cardiomegaly with postsurgical changes with continued but decreasing failure. Bibasilar atelectasis with left pleural fluid decreasing. No pneumothorax. [place] catheter remains in place Procedure Note Deandre Lomeli MD - 05/09/2021 EXAMINATION: XR CHEST 1 VIEW DATE: 05/09/2021 4:10 AM HISTORY: 60-year-old man cardiac surgery follow-up FINDINGS:Compared with study the previous day, significant improvement. There is cardiomegaly with postsurgical changes with continued but decreasing failure. Bibasilar atelectasis with left pleural fluid decreasing. No pneumothorax. [place] catheter remains in place IMPRESSION: Decreasing failure, atelectasis and left effusion. Electronically signed by: Deandre Lomeli M.D. Rhina Granados MD IMG XR PROCEDURES Final Resu lt * eGFR (05/09/2021 6:12 AM STAFF FORESTER) [facility] eGFR 99 mL/min/1.7 3 m2 [facility] Comment: Interpretive Data Reference Interval Normal ?>/= 90 mL/min/1.73m2 Mildly decreased* ? 60 - 89 mL/min/1.73m2 Mildly to moderately decreased ?45 - 59 mL/min/1.73m2 Moderately to severely decreased ??30 - 44 mL/min/1.73m2 Severely decreased ?15 - 29 mL/min/1.73m2 Kidney Failure ?< 15 ??mL/min/1.73m2 *Relative to young adult level Estimated glomerular filtration rate is determined by the CKD-EPI equation recommended by the National Kidney Foundation (KDIGO 2012 Clinical Practice Guideline for the Evaluation and Management of Chronic Kidney Disease. Kidney Intnl Suppl Jun 2012;3:1). The CKD-EPI equation should not be used for patients with unstable renal function and has not been validated in children and those over 70. Current interpretive data was last reviewed 2020 Blood 05/09/2021 6:12 AM STAFF FORESTER 05/09/2021 6:44 AM STAFF FORESTER Rhina Granados MD LAB BLOOD ORDERABLES Final R esult Performing Organization Address [facility] Co de Phone Number [facility] [address] [place], [place] [id number] * Magnesium (05/09/2021 6:12 AM STAFF FORESTER) Magnesium 2.0 1.4 - 2.5 mg/dL [facility] Blood 05/09/2021 6:12 AM STAFF FORESTER 05/09/2021 6:44 AM STAFF FORESTER Silviano Huddleston NP LAB BLOOD ORDERABLES Final Result Performing Organization Address [facility] de Phone Number [facility] [address] [place], [place] [id number] * Phosphorus (05/09/2021 6:12 AM STAFF FORESTER) Phosphorus, pl 3.4 2.3 - 4.5 mg/dL [facility] Blood 05/09/2021 6:12 AM STAFF FORESTER 05/09/2021 6:44 AM STAFF FORESTER Silviano Huddleston NP LAB BLOOD ORDERABLES Final Result Performing Organization Address [facility] Co de Phone Number [facility] [address] [place] [address] * (ABNORMAL) CBC without differential (05/09/2021 6:12 AM STAFF FORESTER) Pathologist [facility] WBC 16.0(H) 3.8 - 9.9 K/cumm [facility] Hgb 11.4(L) 13.0 - 17.5 g/dL [facility] Hct 34.9(L) 38.9 - 50.3 % [facility] Plt 294 150 - 400 K/cumm [facility] MPV 11.3 9.1 - 12.3 fL [facility] RBC 3.81(L) 4.30 - 5.80 M/cumm [facility] MCV 91.6 81.3 - 96.4 fL [facility] MCH 29.9 27.1 - 33.3 pg [facility] MCHC 32.7 32.3 - 35.7 g/dL [facility] RDW CV 13.7 11.1 - 14.9 % [facility] RDW SD 45.7 35.7 - 48.1 fL [facility] NRBC abs 0.00 0.00 - 0.01 K/cumm [facility] Blood 05/09/2021 6:12 AM STAFF FORESTER 05/09/2021 6:44 AM STAFF FORESTER us Rhina Granados MD LAB BLOOD ORDERABLES Final R esult [facility] [address] [place] [address] * (ABNORMAL) Basic metabolic panel (05/09/2021 6:12 AM STAFF FORESTER) Pathologist [facility] Sodium 131(L) 135 - 145 mmol/L [facility] Potassium, pl 3.7 3.3 - 4.9 mmol/L [facility] Chloride 92(L) 97 - 110 mmol/L [facility] CO2 26 22 - 32 mmol/L [facility] Anion gap 13 2 - 15 mmol/L [facility] BUN 17 8 - 25 mg/dL [facility] Creatinine 0.78(L) 0.80 - 1.30 mg/dL [facility] Glucose 174 70 - 199 mg/dL [facility] Comment: Interpretive Data Fasting glucose >/= 126 [...] interpretive data was last revised 2017. Calcium 9.4 8.5 - 10.3 mg/dL [facility] Blood 05/09/2021 6:12 AM STAFF FORESTER 05/09/2021 6:44 AM STAFF FORESTER Rhina Granados MD LAB BLOOD ORDERABLES Final R esult Performing Organization Address [facility] Co de Phone Number [facility] [address] [facility] [place] [address] * POCT glucose (05/09/2021 3:58 AM STAFF FORESTER) Glucose, POC 187 70 - 199 mg/dL [facility] Blood 05/09/2021 3:58 AM STAFF FORESTER 05/09/2021 3:58 AM STAFF FORESTER Nalini Clayton MD LAB POCT ORDERABLES - DEVICE Fin al Result Performing Organization Address [facility] de Phone Number [facility] [address] [place] [address] * (ABNORMAL) POCT glucose (05/09/2021 12:30 AM STAFF FORESTER) Glucose, POC 202(H) 70 - 199 mg/dL [facility] Blood 05/09/2021 12:3 0 AM STAFF FORESTER 05/09/2021 12:30 AM STAFF FORESTER Nalini Clayton MD LAB POCT ORDERABLES - DEVICE Fin al Result Performing Organization Address [facility] de Phone Number [facility] [address] [place] [address] * (ABNORMAL) POCT glucose (05/08/2021 10:32 PM STAFF FORESTER) Glucose, POC 210(H) 70 - 199 mg/dL [facility] Blood 05/08/2021 10:3 2 PM STAFF FORESTER 05/08/2021 10:32 PM STAFF FORESTER us Nalini Clayton MD LAB POCT ORDERABLES - DEVICE Fin al Result Performing Organization Address [facility] Co de Phone Number [facility] [address] [facility] [place] [address] * (ABNORMAL) POCT glucose (05/08/2021 5:38 PM STAFF FORESTER) Glucose, POC 248(H) 70 - 199 mg/dL [facility] Blood 05/08/2021 5:38 PM STAFF FORESTER 05/08/2021 5:38 PM STAFF FORESTER us Nalini Clayton MD LAB POCT ORDERABLES - DEVICE Fin al Result Performing Organization Address [facility] de Phone Number [facility] [address] [facility] [place] [address] * (ABNORMAL) POCT glucose (05/08/2021 12:01 PM STAFF FORESTER) Glucose, POC 223(H) 70 - 199 mg/dL [facility] Blood 05/08/2021 12:0 1 PM STAFF FORESTER 05/08/2021 12:01 PM STAFF FORESTER us Nalini Clayton MD LAB POCT ORDERABLES - DEVICE Fin al Result Performing Organization Address [facility] Co de Phone Number [facility] [address] [place] [address] * POCT glucose (05/08/2021 7:41 AM STAFF FORESTER) Glucose, POC 184 70 - 199 mg/dL [facility] Blood 05/08/2021 7:41 AM STAFF FORESTER 05/08/2021 7:41 AM STAFF FORESTER us Nalini Clayton MD LAB POCT ORDERABLES - DEVICE Fin al Result Performing Organization Address [facility] Co de Phone Number [facility] [address] [address] * eGFR (05/08/2021 5:55 AM STAFF FORESTER) [facility] eGFR 111 mL/min/1.7 3 m2 [facility] Comment: Interpretive Data Reference Interval Normal ?>/= 90 mL/min/1.73m2 Mildly decreased* ? 60 - 89 mL/min/1.73m2 Mildly to moderately decreased ?45 - 59 mL/min/1.73m2 Moderately to severely decreased ??30 - 44 mL/min/1.73m2 Severely decreased ?15 - 29 mL/min/1.73m2 Kidney Failure ?< 15 ??mL/min/1.73m2 *Relative to young adult level Estimated glomerular filtration rate is determined by the CKD-EPI equation recommended by the National Kidney Foundation (KDIGO 2012 Clinical Practice Guideline for the Evaluation and Management of Chronic Kidney Disease. Kidney Intnl Suppl Jun 2012;3:1). The CKD-EPI equation should not be used for patients with unstable renal function and has not been validated in children and those over 70. Current interpretive data was last reviewed 2020 Blood 05/08/2021 5:55 AM STAFF FORESTER 05/08/2021 6:03 AM STAFF FORESTER us Rhina Granados MD LAB BLOOD ORDERABLES Final R esult Performing Organization Address [facility] Co de Phone Number [facility] [address] [place] [address] * Magnesium (05/08/2021 5:55 AM STAFF FORESTER) Pathologist [facility] Magnesium 1.9 1.4 - 2.5 mg/dL [facility] Blood 05/08/2021 5:55 AM STAFF FORESTER 05/08/2021 6:03 AM STAFF FORESTER Silviano Huddleston ESCROW CLERK LAB BLOOD ORDERABLES Final Result [facility] [address] [place] [address] * Phosphorus (05/08/2021 5:55 AM STAFF FORESTER) Pathologist [facility] Phosphorus, pl 3.3 2.3 - 4.5 mg/dL [facility] Blood 05/08/2021 5:55 AM STAFF FORESTER 05/08/2021 6:03 AM STAFF FORESTER Silviano Huddleston ESCROW CLERK LAB BLOOD ORDERABLES Final Result Performing Organization Address City/[facility] Co de Phone Number [facility] [address] [place] [address] * (ABNORMAL) CBC without differential (05/08/2021 5:55 AM STAFF FORESTER) [facility] WBC 16.2(H) 3.8 - 9.9 K/cumm [facility] Hgb 10.5(L) 13.0 - 17.5 g/dL [facility] Hct 31.0(L) 38.9 - 50.3 % [facility] Plt 247 150 - 400 K/cumm [facility] MPV 11.3 9.1 - 12.3 fL [facility] RBC 3.46(L) 4.30 - 5.80 M/cumm [facility] MCV 89.6 81.3 - 96.4 fL [facility] MCH 30.3 27.1 - 33.3 pg [facility] MCHC 33.9 32.3 - 35.7 g/dL [facility] RDW CV 14.0 11.1 - 14.9 % [facility] RDW SD 45.7 35.7 - 48.1 fL [facility] NRBC abs 0.00 0.00 - 0.01 K/cumm [facility] Blood 05/08/2021 5:55 AM STAFF FORESTER 05/08/2021 6:03 AM STAFF FORESTER Rhina Granados MD LAB BLOOD ORDERABLES Final R esult [facility] [address] [place] [address] * (ABNORMAL) Basic metabolic panel (05/08/2021 5:55 AM STAFF FORESTER) Sodium 131(L) 135 - 145 mmol/L [facility] Potassium, pl 3.2(L) 3.3 - 4.9 mmol/L [facility] Chloride 94(L) 97 - 110 mmol/L [facility] CO2 25 22 - 32 mmol/L [facility] Anion gap 12 2 - 15 mmol/L [facility] BUN 13 8 - 25 mg/dL [facility] Creatinine 0.59(L) 0.80 - 1.30 mg/dL [facility] Glucose 191 70 - 199 mg/dL [facility] Comment: Interpretive Data Fasting glucose >/= 126 [...] interpretive data was last revised 2017. Calcium 8.6 8.5 - 10.3 mg/dL [facility] Blood 05/08/2021 5:55 AM STAFF FORESTER 05/08/2021 6:03 AM STAFF FORESTER Rhina Granados MD LAB BLOOD ORDERABLES Final R esult Performing Organization Address City/[facility]/ZIP Co de Phone Number [facility] [address] [place] [address] * XR Chest 1 View - Portable - in AM (05/08/2021 5:34 AM STAFF FORESTER) Anatomical Region Laterality Modality Body, Chest N/A Computed Radiogr aphy 05/08/2021 8:39 AM STAFF FORESTER Impressions 05/08/2021 8:39 AM STAFF FORESTER Decreasing failure. No pneumothorax. Electronically signed by: Deacon Cummings M.D. Narrative 05/08/2021 8:39 AM STAFF FORESTER EXAMINATION: XR CHEST 1 VIEW DATE: 05/08/2021 4:15 AM HISTORY: 60-year-old man cardiac surgery follow-up FINDINGS:Compared with study the previous day, significant improvement. There is cardiomegaly with postsurgical changes with continued but decreasing failure. Bibasilar atelectasis with left pleural fluid. No pneumothorax. [place] catheter remains in place Procedure Note Deacon Cummings MD - 05/08/2021 EXAMINATION: XR CHEST 1 VIEW DATE: 05/08/2021 4:15 AM HISTORY: 60-year-old man cardiac surgery follow-up FINDINGS:Compared with study the previous day, significant improvement. There is cardiomegaly with postsurgical changes with continued but decreasing failure. Bibasilar atelectasis with left pleural fluid. No pneumothorax. [place] catheter remains in place IMPRESSION: Decreasing failure. No pneumothorax. Electronically signed by: Deacon Cummings M.D. us Rhina Granados MD IMG XR PROCEDURES Final Resu lt * POCT glucose (05/08/2021 4:08 AM STAFF FORESTER) Glucose, POC 152 70 - 199 mg/dL [facility] Blood 05/08/2021 4:08 AM STAFF FORESTER 05/08/2021 4:08 AM STAFF FORESTER us Nalini Claytno MD LAB POCT ORDERABLES - DEVICE Fin al Result [facility] [address] [place] [address] * POCT glucose (05/08/2021 12:12 AM STAFF FORESTER) Glucose, POC 158 70 - 199 mg/dL [facility] Blood 05/08/2021 12:1 2 AM STAFF FORESTER 05/08/2021 12:12 AM STAFF FORESTER Nalini Clayton MD LAB POCT ORDERABLES - DEVICE Fin al Result Performing Organization Address [facility] Co de Phone Number [facility] [address] [facility] [place] [address] * (ABNORMAL) POCT glucose (05/07/2021 7:51 PM STAFF FORESTER) Glucose, POC 214(H) 70 - 199 mg/dL [facility] Blood 05/07/2021 7:51 PM STAFF FORESTER 05/07/2021 7:51 PM STAFF FORESTER Nalini Clayton MD LAB POCT ORDERABLES - DEVICE Fin al Result Performing Organization Address [facility] de Phone Number [facility] [address] [facility] [place] [address] * (ABNORMAL) POCT glucose (05/07/2021 3:56 PM STAFF FORESTER) Glucose, POC 204(H) 70 - 199 mg/dL [facility] Blood 05/07/2021 3:56 PM STAFF FORESTER 05/07/2021 3:56 PM STAFF FORESTER Nalini Clayton MD LAB POCT ORDERABLES - DEVICE Fin al Result Performing Organization Address [facility] Co de Phone Number [facility] [address] [facility] [place] [address] * Transfuse RBC (05/07/2021 3:41 PM STAFF FORESTER) Blood specimen (specimen) Rhina Granados MD BLOOD TRANSFUS[place] [address] [place] [address] * Transfuse RBC: 1 Units (05/07/2021 3:41 PM STAFF FORESTER) Blood specimen (specimen) us Rhina Granados MD BLOOD TRANSFUSION ORDERABLES Final Result * Critical Care (05/07/2021 3:37 PM STAFF FORESTER) Narrative Domenica Rod MD - 05/07/2021 3:37 PM STAFF FORESTER Domenica Rod MD ? 05/07/2021 ??3:38 PM Critical Care Performed by: Domenica Rod MD Authorized by: Domenica Rod MD CRITICAL CARE: ??Team: ??CHNE ??Shift: ??AM ??Level of Billing: ??Critical Care ??My time spent with this patient was 40 minutes: Critical Provider Statement: I have seen and examined the patient on this day of service. I have reviewed and confirmed the history, physical exam, laboratory and radiologic data as documented in the signed ICU note. I have reviewed and discussed my treatment plan with the ICU team and other medical/environmental remediation consultant staff, making frequent assessments and decisions regarding this patient's complex medical care. Critical Care time was exclusive of time spent performing separately billed procedures, treating other patients, and teaching. This time was in addition to and separate from critical care provided by other practitioners in my group on this day of service. Critical Care was necessary to treat or prevent imminent or life-threatening deterioration of the following conditions: ? Cardiogenic shock ?? Acute respiratory insufficiency ??This time was spent by me doing the following: ? Initiation/active titration of inotropic medications ?? Optiflow support ?? I spent time reviewing and interpreting data from bedside monitors, laboratory results, and imaging, I spent time discussing the management of this critically ill patient with consultants and the medical staff and I spent time documenting in the medical record us Domenica Rod MD IN CLINIC/BEDSIDE ORDERABLES Final Result * TRANSTHORACIC ECHO (TTE) LIMITED/FOLLOW UP W LTD DOPPLER/CF WO CONTRAST (05/07/2021 12:37 PM STAFF FORESTER) Anatomical Region Laterality Modality Ultrasound 05/07/2021 12:1 6 PM STAFF FORESTER Narrative 05/07/2021 12:54 [place] [address] Limited Echocardiogram Report Patient Name: DEEPAK ALVARADO : 1960 Study Date: 05/07/2021 12:16:52 PM Gender: M Tech: Location: [id number] Ref.Provider: RHINA GRANADOS Height(Cm): 175 BSA: 2.1 Weight(Kg): 91 Heart Rate: 82 BP: 127/44 Quality: Good Order Provider: Dr. Sutton Procedures: Echocardiographic Report: Limited transthoracic echocardiogram with 2D and M-Mode. Measurements: 2D/M Mode Measurement ?Value ?Normal Range ? LVIDd 2D ? 3.43 ? [ 4.20 - 5.90 ] cm ? LVIDs 2D ? 2.59 ? [ 2.30 - 3.90 ] cm ? LVPWd 2D ? 1.01 ? [ 0.60 - 1.00 ] cm ? IVSd 2D ?0.71 ? [ 0.60 - 0.90 ] cm ? Findings: Left Ventricle: Reduced left ventricular cavity size. Mild global left ventricular systolic dysfunction. Ejection fraction is measured at 42 %. These segments of the LV are hypokinetic: apical anterior segment. Pericardium: Trivial pericardial effusion. No echocardiographic evidence to suggest pericardial tamponade. Conclusions: Reduced left ventricular cavity size. Mild global left ventricular systolic dysfunction. Ejection fraction is measured at 42 %. These segments of the LV are hypokinetic: apical anterior segment. Trivial pericardial effusion. No echocardiographic evidence to suggest pericardial tamponade. Electronically Signed By: Gianni Francois MD, [facility] 2021-05-07 12:54:09 STAFF FORESTER Procedure Note Gianni Francois MD - 05/07/2021 [place] [address] Limited Echocardiogram Report Patient Name: DEEPAK ALVARADOPatient ID: [id number] : [id number] Date: 05/07/2021 12:16:52 PM Gender: MAccession #: [id number] Tech: SRLocation: [id number] Ref.Provider: Arielle GRANADOSight(Cm): 175 BSA: 2.1Weight(Kg): 91 Heart Rate: 82BP: 127/44 Quality: GoodOrder Provider: Dr. Sutton Procedures: Echocardiographic Report: Limited transthoracic echocardiogram with 2D and M-Mode. Measurements: 2D/M Mode Measurement Value Normal Range LVIDd 2D 3.43 [ 4.20 - 5.90 ] cm LVIDs 2D 2.59 [ 2.30 - 3.90 ] cm LVPWd 2D 1.01 [ 0.60 - 1.00 ] cm IVSd 2D 0.71 [ 0.60 - 0.90 ] cm Findings: Left Ventricle: Reduced left ventricular cavity size. Mild global left ventricularsystolic dysfunction. Ejection fraction is measured at 42 %. These segments of the LV arehypokinetic: apical anterior segment. Pericardium: Trivial pericardial effusion. No echocardiographic evidence to suggestpericardial tamponade. Conclusions: Reduced left ventricular cavity size. Mild global left ventricularsystolic dysfunction. Ejection fraction is measured at 42 %. These segments of the LV arehypokinetic: apical anterior segment. Trivial pericardial effusion. No echocardiographic evidence to suggestpericardial tamponade. Electronically Signed By: Gianni Francois MD, [facility] 2021-05-07 12:54:09 STAFF FORESTER us Rhina Granados MD CV ECHO PROCEDURES Final Res ult * POCT glucose (05/07/2021 12:18 PM STAFF FORESTER) [facility] Signature Glucose, POC 181 70 - 199 mg/dL [facility] Blood 05/07/2021 12:1 8 PM STAFF FORESTER 05/07/2021 12:18 PM STAFF FORESTER Nalini Clayton MD LAB POCT ORDERABLES - DEVICE Fin al Result Performing Organization Address [facility] Co de Phone Number [facility] [address] [place] [address] * Type and screen (05/07/2021 10:36 AM STAFF FORESTER) ABO Rh A Positive [facility] [place], indirect Negative [facility] Blood 05/07/2021 10:3 6 AM STAFF FORESTER 05/07/2021 11:02 AM STAFF FORESTER Narrative [facility] - 05/07/2021 11:52 AM STAFF FORESTER Has the patient had Daratumumab or Isatuximab in the past 6 months?->Unknown Rhina Granados MD LAB BLOOD BANK TEST ORDERABL ES Final Result Performing Organization Address [facility] de Phone Number [facility] [address] [place] [address] * POCT glucose (05/07/2021 8:55 AM STAFF FORESTER) Glucose, POC 153 70 - 199 mg/dL [facility] Blood 05/07/2021 8:55 AM STAFF FORESTER 05/07/2021 8:55 AM STAFF FORESTER Nalini Clayton MD LAB POCT ORDERABLES - DEVICE Fin al Result Performing Organization Address [facility] de Phone Number [facility] DON [address] [place] [address] * Prepare RBC: 1 Units (05/07/2021 8:32 AM STAFF FORESTER) Product code [id number] [facility] Unit Number [id number] [facility] Product Blood Type APOS [facility] Dispense Status PRESUMED TRANSFUSED [facility] Blood 05/07/2021 8:32 AM STAFF FORESTER Narrative [facility] - 05/07/2021 10:15 PM STAFF FORESTER Are special requirements needed? (all products are leukoreduced)->No Date required:-[id number] LRRBC # of [id number] Reasons:-Active bleeding, Hgb <8 g/dL} Rhina Granados MD BLOOD BANK PRODUCT ORDERABLE S Final Result Performing Organization Address [facility] Co de Phone Number [facility] [address] [place] [address] * Oxyhemoglobin, central venous (05/07/2021 6:15 AM STAFF FORESTER) Oxyhemoglobin, CV 78.5 % [facility] Comment: Interpretive Data No reference range established. Current interpretive data was last revised 2019. Blood 05/07/2021 6:15 AM STAFF FORESTER 05/07/2021 6:39 AM STAFF FORESTER Rhina Granados MD LAB BLOOD ORDERABLES Final R esult Performing Organization Address [facility] Co de Phone Number [facility] [address] [place] [address] * XR Chest 1 View - Portable - in AM (05/07/2021 5:33 AM STAFF FORESTER) Anatomical Region Laterality Modality Body, Chest N/A Computed Radiogr aphy 05/07/2021 8:42 AM STAFF FORESTER Impressions 05/07/2021 8:42 AM STAFF FORESTER Persistent prominent interstitial lung disease with failure. Electronically signed by: Deacon Cummings M.D. Narrative 05/07/2021 8:42 AM STAFF FORESTER EXAMINATION: XR CHEST 1 VIEW DATE: 05/07/2021 3:55 AM HISTORY: 60-year-old man follow-up cardiac surgery FINDINGS:Compared with study of the previous day, postsurgical changes in the heart and mediastinum with cardiomegaly are stable. [place] catheter remains in place. Left thoracostomy tube remains in place. No pneumothorax. Pulmonary vascular congestion with interstitial lung disease remain prominent. Procedure Note Deacon Cummings MD - 05/07/2021 EXAMINATION: XR CHEST 1 VIEW DATE: 05/07/2021 3:55 AM HISTORY: 60-year-old man follow-up cardiac surgery FINDINGS:Compared with study of the previous day, postsurgical changes in the heart and mediastinum with cardiomegaly are stable. [place] catheter remains in place. Left thoracostomy tube remains in place. No pneumothorax. Pulmonary vascular congestion with interstitial lung disease remain prominent. IMPRESSION: Persistent prominent interstitial lung disease with failure. Electronically signed by: Deacon Cummings M.D. us Rhina Granados MD IMG XR PROCEDURES Final Resu lt * eGFR (05/07/2021 4:21 AM STAFF FORESTER) eGFR 111 mL/min/1.7 3 m2 [facility] Comment: Interpretive Data Reference Interval Normal ?>/= 90 mL/min/1.73m2 Mildly decreased* ? 60 - 89 mL/min/1.73m2 Mildly to moderately decreased ?45 - 59 mL/min/1.73m2 Moderately to severely decreased ??30 - 44 mL/min/1.73m2 Severely decreased ?15 - 29 mL/min/1.73m2 Kidney Failure ?< 15 ??mL/min/1.73m2 *Relative to young adult level Estimated glomerular filtration rate is determined by the CKD-EPI equation recommended by the National Kidney Foundation (KDIGO 2012 Clinical Practice Guideline for the Evaluation and Management of Chronic Kidney Disease. Kidney Intnl Suppl Jun 2012;3:1). The CKD-EPI equation should not be used for patients with unstable renal function and has not been validated in children and those over 70. Current interpretive data was last reviewed 2020 Blood 05/07/2021 4:2 1 AM STAFF FORESTER 05/07/2021 4:31 AM STAFF FORESTER Rhina Granados MD LAB BLOOD ORDERABLES Final R esult Performing Organization Address [facility] Co de Phone Number [facility] [address] [facility] [place] [address] * Magnesium (05/07/2021 4:21 AM STAFF FORESTER) Magnesium 1.7 1.4 - 2.5 mg/dL [facility] Blood 05/07/2021 4:21 AM STAFF FORESTER 05/07/2021 4:31 AM STAFF FORESTER Silviano Huddleston NP LAB BLOOD ORDERABLES Final Result Performing Organization Address [facility] de Phone Number [facility] [address] [place] [address] * Phosphorus (05/07/2021 4:21 AM STAFF FORESTER) Pathologist [facility] Phosphorus, pl 2.7 2.3 - 4.5 mg/dL [facility] Blood 05/07/2021 4:21 AM STAFF FORESTER 05/07/2021 4:31 AM STAFF FORESTER Silviano Huddleston ESCROW CLERK LAB BLOOD ORDERABLES Final Result Performing Organization Address [facility] de Phone Number [facility] [address] [place] [address] * (ABNORMAL) CBC without differential (05/07/2021 4:21 AM STAFF FORESTER) WBC 16.6(H) 3.8 - 9.9 K/cumm [facility] Hgb 8.6(L) 13.0 - 17.5 g/dL [facility] Hct 25.5(L) 38.9 - 50.3 % [facility] Plt 197 150 - 400 K/cumm [facility] MPV 11.3 9.1 - 12.3 fL [facility] RBC 2.76(L) 4.30 - 5.80 M/cumm [facility] MCV 92.4 81.3 - 96.4 fL [facility] MCH 31.2 27.1 - 33.3 pg [facility] MCHC 33.7 32.3 - 35.7 g/dL [facility] RDW CV 14.3 11.1 - 14.9 % [facility] RDW SD 47.6 35.7 - 48.1 fL [facility] NRBC abs 0.00 0.00 - 0.01 K/cumm [facility] Blood 05/07/2021 4:21 AM STAFF FORESTER 05/07/2021 4:30 AM STAFF FORESTER us Rhina Granados MD LAB BLOOD ORDERABLES Final R esult [facility] [address] [place] [address] * (ABNORMAL) Basic metabolic panel (05/07/2021 4:21 AM STAFF FORESTER) Sodium 137 135 - 145 mmol/L [facility] Potassium, pl 3.3 3.3 - 4.9 mmol/L [facility] Chloride 103 97 - 110 mmol/L [facility] CO2 18(L) 22 - 32 mmol/L [facility] Anion gap 16(H) 2 - 15 mmol/L [facility] BUN 16 8 - 25 mg/dL [facility] Creatinine 0.59(L) 0.80 - 1.30 mg/dL [facility] Glucose 152 70 - 199 mg/dL [facility] Comment: Interpretive Data Fasting glucose >/= 126 [...] interpretive data was last revised 2017. Calcium 8.1(L) 8.5 - 10.3 mg/dL [facility] Blood 05/07/2021 4:21 AM STAFF FORESTER 05/07/2021 4:31 AM STAFF FORESTER Rhina Granados MD LAB BLOOD ORDERABLES Final R esult [facility] [address] [place] [address] * POCT glucose (05/07/2021 4:19 AM STAFF FORESTER) Glucose, POC 146 70 - 199 mg/dL [facility] Blood 05/07/2021 4:19 AM STAFF FORESTER 05/07/2021 4:19 AM STAFF FORESTER us Nalini Clayton MD LAB POCT ORDERABLES - DEVICE Fin al Result Performing Organization Address [facility] Co de Phone Number [facility] [address] [place] [address] * eGFR (05/06/2021 11:14 PM STAFF FORESTER) eGFR 109 mL/min/1.7 3 m2 [facility] Comment: Interpretive Data Reference Interval Normal ?>/= 90 mL/min/1.73m2 Mildly decreased* ? 60 - 89 mL/min/1.73m2 Mildly to moderately decreased ?45 - 59 mL/min/1.73m2 Moderately to severely decreased ??30 - 44 mL/min/1.73m2 Severely decreased ?15 - 29 mL/min/1.73m2 Kidney Failure ?< 15 ??mL/min/1.73m2 *Relative to young adult level Estimated glomerular filtration rate is determined by the CKD-EPI equation recommended by the National Kidney Foundation (KDIGO 2012 Clinical Practice Guideline for the Evaluation and Management of Chronic Kidney Disease. Kidney Intnl Suppl Jun 2012;3:1). The CKD-EPI equation should not be used for patients with unstable renal function and has not been validated in children and those over 70. Current interpretive data was last reviewed 2020 Blood 05/06/2021 11:1 4 PM STAFF FORESTER 05/06/2021 11:17 PM STAFF FORESTER Rhina Granados MD LAB BLOOD ORDERABLES Final R esult Performing Organization Address [facility] Co de Phone Number [facility] [address] [place] [address] * Magnesium (05/06/2021 11:14 PM STAFF FORESTER) Magnesium 1.8 1.4 - 2.5 mg/dL [facility] Blood 05/06/2021 11:1 4 PM STAFF FORESTER 05/06/2021 11:17 PM STAFF FORESTER Rhina Granados MD LAB BLOOD ORDERABLES Final R esult Performing Organization Address [facility] de Phone Number [facility] [address] [place] [address] * (ABNORMAL) Basic metabolic panel (05/06/2021 11:14 PM STAFF FORESTER) Sodium 138 135 - 145 mmol/L [facility] Potassium, pl 3.6 3.3 - 4.9 mmol/L [facility] Chloride 104 97 - 110 mmol/L [facility] CO2 19(L) 22 - 32 mmol/L [facility] Anion gap 15 2 - 15 mmol/L [facility] BUN 17 8 - 25 mg/dL [facility] Creatinine 0.62(L) 0.80 - 1.30 mg/dL [facility] Glucose 169 70 - 199 mg/dL [facility] Comment: Interpretive Data Fasting glucose >/= 126 [...] interpretive data was last revised 2017. Calcium 8.3(L) 8.5 - 10.3 mg/dL [facility] Blood 05/06/2021 11:1 4 PM STAFF FORESTER 05/06/2021 11:17 PM STAFF FORESTER Rhina Granados MD LAB BLOOD ORDERABLES Final R esult Performing Organization Address [facility] Co de Phone Number [facility] [address] [facility] [place] [address] * POCT glucose (05/06/2021 11:13 PM STAFF FORESTER) Glucose, POC 163 70 - 199 mg/dL [facility] Blood 05/06/2021 11:1 3 PM STAFF FORESTER 05/06/2021 11:13 PM STAFF FORESTER Nalini Clayton MD LAB POCT ORDERABLES - DEVICE Fin al Result Performing Organization Address [facility] Co de Phone Number [facility] [address] [facility] [address] [place], [place] [id number] * POCT glucose (05/06/2021 8:03 PM STAFF FORESTER) Glucose, POC 176 70 - 199 mg/dL [facility] Blood 05/06/2021 8:03 PM STAFF FORESTER 05/06/2021 8:03 PM STAFF FORESTER Nalini Clayton MD LAB POCT ORDERABLES - DEVICE Fin al Result Performing Organization Address [facility] Co de Phone Number [facility] [address] [facility] [address] [place], [place] [id number] * POCT glucose (05/06/2021 3:46 PM STAFF FORESTER) Glucose, POC 140 70 - 199 mg/dL [facility] Blood 05/06/2021 3:46 PM STAFF FORESTER 05/06/2021 3:46 PM STAFF FORESTER us Nalini Clayton MD LAB POCT ORDERABLES - DEVICE Fin al Result Performing Organization Address [facility] de Phone Number [facility] [address] [place] [address] * eGFR (05/06/2021 1:12 PM STAFF FORESTER) [facility] eGFR 104 mL/min/1.7 3 m2 [facility] Comment: Interpretive Data Reference Interval Normal ?>/= 90 mL/min/1.73m2 Mildly decreased* ? 60 - 89 mL/min/1.73m2 Mildly to moderately decreased ?45 - 59 mL/min/1.73m2 Moderately to severely decreased ??30 - 44 mL/min/1.73m2 Severely decreased ?15 - 29 mL/min/1.73m2 Kidney Failure ?< 15 ??mL/min/1.73m2 *Relative to young adult level Estimated glomerular filtration rate is determined by the CKD-EPI equation recommended by the National Kidney Foundation (KDIGO 2012 Clinical Practice Guideline for the Evaluation and Management of Chronic Kidney Disease. Kidney Intnl Suppl Jun 2012;3:1). The CKD-EPI equation should not be used for patients with unstable renal function and has not been validated in children and those over 70. Current interpretive data was last reviewed 2020 Blood 05/06/2021 1:12 PM STAFF FORESTER 05/06/2021 1:22 PM STAFF FORESTER us Rhina Granados MD LAB BLOOD ORDERABLES Final R esult Performing Organization Address [facility] Co de Phone Number [facility] [address] [facility] [place] [address] * (ABNORMAL) CBC without differential (05/06/2021 1:12 PM STAFF FORESTER) WBC 16.1(H) 3.8 - 9.9 K/cumm [facility] Hgb 9.0(L) 13.0 - 17.5 g/dL [facility] Hct 26.5(L) 38.9 - 50.3 % [facility] Plt 202 150 - 400 K/cumm [facility] MPV 11.4 9.1 - 12.3 fL [facility] RBC 2.95(L) 4.30 - 5.80 M/cumm [facility] MCV 89.8 81.3 - 96.4 fL [facility] MCH 30.5 27.1 - 33.3 pg [facility] MCHC 34.0 32.3 - 35.7 g/dL [facility] RDW CV 14.3 11.1 - 14.9 % [facility] RDW SD 46.1 35.7 - 48.1 fL [facility] NRBC abs 0.00 0.00 - 0.01 K/cumm [facility] Blood 05/06/2021 1:12 PM STAFF FORESTER 05/06/2021 1:22 PM STAFF FORESTER Rhina Granados MD LAB BLOOD ORDERABLES Final R esult Performing Organization Address City/[facility] Co de Phone Number [facility] [address] [facility] [place] [address] * Magnesium (05/06/2021 1:12 PM STAFF FORESTER) Pathologist [facility] Magnesium 1.8 1.4 - 2.5 mg/dL [facility] Blood 05/06/2021 1:12 PM STAFF FORESTER 05/06/2021 1:22 PM STAFF FORESTER Rhina Granados MD LAB BLOOD ORDERABLES Final R esult Performing Organization Address City/[facility] Co de Phone Number [facility] [address] [facility] [place] [address] * (ABNORMAL) Basic metabolic panel (05/06/2021 1:12 PM STAFF FORESTER) Sodium 139 135 - 145 mmol/L [facility] Potassium, pl 3.4 3.3 - 4.9 mmol/L [facility] Chloride 107 97 - 110 mmol/L [facility] CO2 22 22 - 32 mmol/L [facility] Anion gap 10 2 - 15 mmol/L [facility] BUN 15 8 - 25 mg/dL [facility] Creatinine 0.69(L) 0.80 - 1.30 mg/dL [facility] Comment:Icteric sample, test results may be affected. Glucose 163 70 - 199 mg/dL [facility] Comment: Interpretive Data Fasting glucose >/= 126 [...] interpretive data was last revised 2017. Calcium 8.2(L) 8.5 - 10.3 mg/dL [facility] Blood 05/06/2021 1:12 PM STAFF FORESTER 05/06/2021 1:22 PM STAFF FORESTER Rhina Granados MD LAB BLOOD ORDERABLES Final R esult [facility] [address] [place] [address] * POCT glucose (05/06/2021 11:47 AM STAFF FORESTER) Glucose, POC 169 70 - 199 mg/dL [facility] Blood 05/06/2021 11:4 7 AM STAFF FORESTER 05/06/2021 11:47 AM STAFF FORESTER us Nalini Clayton MD LAB POCT ORDERABLES - DEVICE Fin al Result Performing Organization Address City/[facility]/ZIP Co de Phone Number [facility] [address] [address] [facility] [place] [address] * (ABNORMAL) POCT glucose (05/06/2021 7:41 AM STAFF FORESTER) Glucose, POC 213(H) 70 - 199 mg/dL [facility] Blood 05/06/2021 7:41 AM STAFF FORESTER 05/06/2021 7:41 AM STAFF FORESTER Nalini Clayton MD LAB POCT ORDERABLES - DEVICE Fin al Result Performing Organization Address [facility] de Phone Number [facility] [address] [address] [facility] [place] [address] * XR Chest 1 View - Portable - in AM (05/06/2021 5:55 AM STAFF FORESTER) Anatomical Region Laterality Modality Body, Chest N/A Computed Radiogr aphy 05/06/2021 8:20 AM STAFF FORESTER Impressions 05/06/2021 8:20 AM STAFF FORESTER 1. ??Interval removal of endotracheal tube. ??Remaining tubes and lines are appropriately positioned. 2. ??Similar-appearing cardiomegaly, pulmonary vascular congestion, and prominent bilateral interstitial markings suggestive of interstitial pulmonary edema. Electronically signed by: Richard Lopez II, D.O. Narrative 05/06/2021 8:20 AM STAFF FORESTER EXAMINATION: XR CHEST 1 VIEW DATE: 05/06/2021 4:05 AM INDICATION: Cardiac surgery. COMPARISON: 05/05/2021. FINDINGS: No pneumothorax or pleural effusion. ??Similar-appearing pulmonary vascular congestion and interstitial opacities most notable in the bilateral upper lobes consistent with pulmonary edema. Pulmonary catheter catheter, left thoracostomy tube, and mediastinal drain are appropriately position. ??Intra-aortic balloon pump is appropriately positioned. ??Interval removal of endotracheal tube. Procedure Note Richard Lopez II, DO - 05/06/2021 EXAMINATION: XR CHEST 1 VIEW DATE: 05/06/2021 4:05 AM INDICATION: Cardiac surgery. COMPARISON: 05/05/2021. FINDINGS: No pneumothorax or pleural effusion. Similar-appearing pulmonary vascular congestion and interstitial opacities most notable in the bilateral upper lobes consistent with pulmonary edema. Pulmonary catheter catheter, left thoracostomy tube, and mediastinal drain are appropriately position. Intra-aortic balloon pump is appropriately positioned. Interval removal of endotracheal tube. IMPRESSION: 1. Interval removal of endotracheal tube. Remaining tubes and lines are appropriately positioned. 2. Similar-appearing cardiomegaly, pulmonary vascular congestion, and prominent bilateral interstitial markings suggestive of interstitial pulmonary edema. Electronically signed by: Brandi Russell IIOAldo us Rhina Granados MD IMG XR PROCEDURES Final Resu lt * eGFR (05/06/2021 3:32 AM STAFF FORESTER) eGFR 103 mL/min/1.7 3 m2 [facility] Comment: Interpretive Data Reference Interval Normal ?>/= 90 mL/min/1.73m2 Mildly decreased* ? 60 - 89 mL/min/1.73m2 Mildly to moderately decreased ?45 - 59 mL/min/1.73m2 Moderately to severely decreased ??30 - 44 mL/min/1.73m2 Severely decreased ?15 - 29 mL/min/1.73m2 Kidney Failure ?< 15 ??mL/min/1.73m2 *Relative to young adult level Estimated glomerular filtration rate is determined by the CKD-EPI equation recommended by the National Kidney Foundation (KDIGO 2012 Clinical Practice Guideline for the Evaluation and Management of Chronic Kidney Disease. Kidney Intnl Suppl Jun 2012;3:1). The CKD-EPI equation should not be used for patients with unstable renal function and has not been validated in children and those over 70. Current interpretive data was last reviewed 2020 Blood 05/06/2021 3:32 AM STAFF FORESTER 05/06/2021 4:00 AM STAFF FORESTER Rhina Granados MD LAB BLOOD ORDERABLES Final R esult Performing Organization Address City/[facility]/ZIP Co de Phone Number [facility] [address] [facility] [place] [address] * Magnesium (05/06/2021 3:32 AM STAFF FORESTER) Pathologist [facility] Magnesium 2.0 1.4 - 2.5 mg/dL [facility] Blood 05/06/2021 3:32 AM STAFF FORESTER 05/06/2021 4:00 AM STAFF FORESTER Silviano Huddleston ESCROW CLERK LAB BLOOD ORDERABLES Final Result Performing Organization Address [facility] Co de Phone Number [facility] [address] [place] [address] * Phosphorus (05/06/2021 3:32 AM STAFF FORESTER) Pathologist [facility] Phosphorus, pl 3.7 2.3 - 4.5 mg/dL [facility] Blood 05/06/2021 3:32 AM STAFF FORESTER 05/06/2021 4:00 AM STAFF FORESTER Silviano Huddleston ESCROW CLERK LAB BLOOD ORDERABLES Final Result Performing Organization Address [facility] de Phone Number [facility] [address] [place] [address] * (ABNORMAL) CBC without differential (05/06/2021 3:32 AM STAFF FORESTER) WBC 14.6(H) 3.8 - 9.9 K/cumm [facility] Hgb 9.2(L) 13.0 - 17.5 g/dL [facility] Hct 27.9(L) 38.9 - 50.3 % [facility] Plt 204 150 - 400 K/cumm [facility] MPV 11.7 9.1 - 12.3 fL [facility] RBC 3.06(L) 4.30 - 5.80 M/cumm [facility] MCV 91.2 81.3 - 96.4 fL [facility] MCH 30.1 27.1 - 33.3 pg [facility] MCHC 33.0 32.3 - 35.7 g/dL [facility] RDW CV 14.6 11.1 - 14.9 % [facility] RDW SD 47.9 35.7 - 48.1 fL [facility] NRBC abs 0.00 0.00 - 0.01 K/cumm [facility] Blood 05/06/2021 3:32 AM STAFF FORESTER 05/06/2021 4:00 AM STAFF FORESTER us Rhina Granados MD LAB BLOOD ORDERABLES Final R esult [facility] [address] [place] [address] * (ABNORMAL) Basic metabolic panel (05/06/2021 3:32 AM STAFF FORESTER) Sodium 142 135 - 145 mmol/L [facility] Potassium, pl 3.7 3.3 - 4.9 mmol/L [facility] Chloride 106 97 - 110 mmol/L [facility] CO2 22 22 - 32 mmol/L [facility] Anion gap 14 2 - 15 mmol/L [facility] BUN 10 8 - 25 mg/dL [facility] Creatinine 0.71(L) 0.80 - 1.30 mg/dL [facility] Glucose 203(H) 70 - 199 mg/dL [facility] Comment: Interpretive Data Fasting glucose >/= 126 [...] interpretive data was last revised 2017. Calcium 8.3(L) 8.5 - 10.3 mg/dL [facility] Blood 05/06/2021 3:32 AM STAFF FORESTER 05/06/2021 4:00 AM STAFF FORESTER Rhina Granados MD LAB BLOOD ORDERABLES Final R esult Performing Organization Address City/[facility]/ZIP Co de Phone Number [facility] [address] [address] [facility] [place] [address] * (ABNORMAL) POCT glucose (05/05/2021 11:52 PM STAFF FORESTER) Glucose, POC 212(H) 70 - 199 mg/dL [facility] Blood 05/05/2021 11:5 2 PM STAFF FORESTER 05/05/2021 11:52 PM STAFF FORESTER Nalini Clayton MD LAB POCT ORDERABLES - DEVICE Fin al Result Performing Organization Address [facility] Co de Phone Number [facility] [address] [address] [place] [address] * Critical Care (05/05/2021 11:05 PM STAFF FORESTER) Narrative Wally Aguilar, - 05/05/2021 11:05 PM STAFF FORESTER Wally Aguilar, DO ? 05/13/2021 ??2:22 PM Critical Care Performed by: Wally Aguilar DO Authorized by: Wally Aguilar DO CRITICAL CARE: ??Team: ??CHNE ??Shift: ??PM ??Level of Billing: ??Critical Care ??My time spent with this patient was 40 minutes: Critical Provider Statement: I have seen and examined the patient on this day of service. I have reviewed and confirmed the history, physical exam, laboratory and radiologic data as documented in the signed ICU note. I have reviewed and discussed my treatment plan with the ICU team and other medical/environmental remediation consultant staff, making frequent assessments and decisions regarding this patient's complex medical care. Critical Care time was exclusive of time spent performing separately billed procedures, treating other patients, and teaching. This time was in addition to and separate from critical care provided by other practitioners in my group on this day of service. Critical Care was necessary to treat or prevent imminent or life-threatening deterioration of the following conditions: ? Encephalopathy/altered mental status and Acute delirium ?? Cardiogenic shock and ST-Elevation myocardial infarction (STEMI) ?? Acute respiratory failure following procedure/surgery ?? Acute blood loss anemia ??This time was spent by me doing the following: ? Serial bedside patient exams ?? Acute pain control ?? Initiation/active titration of vasoactive medications, Cardiac pacing, Electrical/chemical cardioversion and Interpretation of cardiac output measurements ?? Active and frequent reassessment of respiratory status and oxygen requirements and Non-invasive positive pressure ventilator management ?? Active and frequent monitoring of intake/output and volumen status ?? Empiric broad coverage antibiotics and Review of prior or current culture/gram stain results ?? I spent time reviewing and interpreting data from bedside monitors, laboratory results, and imaging, I spent time discussing the management of this critically ill patient with consultants and the medical staff and I spent time documenting in the medical record Wally Aguilar DO IN CLINIC/BEDSIDE ORDER REJI Edited Result - Final * (ABNORMAL) POCT glucose (05/05/2021 8:43 PM STAFF FORESTER) Glucose, POC 230(H) 70 - 199 mg/dL [facility] Blood 05/05/2021 8:43 PM STAFF FORESTER 05/05/2021 8:43 PM STAFF FORESTER Nalini Clayton MD LAB POCT ORDERABLES - DEVICE Fin al Result Performing Organization Address [facility] de Phone Number [facility] [address] [facility] [place] [address] * POCT glucose (05/05/2021 4:12 PM STAFF FORESTER) Glucose, POC 149 70 - 199 mg/dL [facility] Blood 05/05/2021 4:12 PM STAFF FORESTER 05/05/2021 4:12 PM STAFF FORESTER Nalini Clayton MD LAB POCT ORDERABLES - DEVICE Fin al Result Performing Organization Address [facility] Co de Phone Number [facility] [address] [facility] [place] [address] * eGFR (05/05/2021 4:05 PM STAFF FORESTER) eGFR 119 mL/min/1.7 3 m2 [facility] Comment: Interpretive Data Reference Interval Normal ?>/= 90 mL/min/1.73m2 Mildly decreased* ? 60 - 89 mL/min/1.73m2 Mildly to moderately decreased ?45 - 59 mL/min/1.73m2 Moderately to severely decreased ??30 - 44 mL/min/1.73m2 Severely decreased ?15 - 29 mL/min/1.73m2 Kidney Failure ?< 15 ??mL/min/1.73m2 *Relative to young adult level Estimated glomerular filtration rate is determined by the CKD-EPI equation recommended by the National Kidney Foundation (KDIGO 2012 Clinical Practice Guideline for the Evaluation and Management of Chronic Kidney Disease. Kidney Intnl Suppl Jun 2012;3:1). The CKD-EPI equation should not be used for patients with unstable renal function and has not been validated in children and those over 70. Current interpretive data was last reviewed 2020 Blood 05/05/2021 4:05 PM STAFF FORESTER 05/05/2021 4:39 PM STAFF FORESTER us Rhina Granados MD LAB BLOOD ORDERABLES Final R esult [facility] [address] Department [place] [address] * Magnesium (05/05/2021 4:05 PM STAFF FORESTER) Pathologist [facility] Magnesium 2.1 1.4 - 2.5 mg/dL [facility] Blood 05/05/2021 4:05 PM STAFF FORESTER 05/05/2021 4:31 PM STAFF FORESTER Rhina Granados MD LAB BLOOD ORDERABLES Final R esult Performing Organization Address City/[facility]/ZIP Co de Phone Number [facility] [address] [place], [place] [id number] * (ABNORMAL) Basic metabolic panel (05/05/2021 4:05 PM STAFF FORESTER) Sodium 141 135 - 145 mmol/L [facility] Potassium, pl 3.7 3.3 - 4.9 mmol/L [facility] Chloride 107 97 - 110 mmol/L [facility] CO2 18(L) 22 - 32 mmol/L [facility] Anion gap 16(H) 2 - 15 mmol/L [facility] BUN 7(L) 8 - 25 mg/dL [facility] Creatinine 0.50(L) 0.80 - 1.30 mg/dL [facility] Comment:Icteric sample, test results may be affected. Glucose 153 70 - 199 mg/dL [facility] Comment: Interpretive Data Fasting glucose >/= 126 [...] interpretive data was last revised 2017. Calcium 8.2(L) 8.5 - 10.3 mg/dL [facility] Blood 05/05/2021 4:05 PM STAFF FORESTER 05/05/2021 4:31 PM STAFF FORESTER Rhina Granados MD LAB BLOOD ORDERABLES Final R joseult Performing Organization Address [facility] Co de Phone Number [facility] [address] [facility] [place], [place] [phone] * (ABNORMAL) Blood gas, arterial (05/05/2021 4:05 PM STAFF FORESTER) pH, Art 7.43 7.35 - 7.45 [facility] PCO2, Arterial 29(L) 35 - 45 mmHg [facility] PO2, Arterial 82(L) 83 - 108 mmHg [facility] HCO3 Art (Calculated) 21 20 - 30 mmol/L [facility] BE, art -4 mmol/L [facility] Comment: Interpretive Data No Reference Range Established Current Interpretive Data was last revised on 2017 O2 Sat Art (Measured) 97(H) 90 - 95 % [facility] Blood 05/05/2021 4:05 PM STAFF FORESTER 05/05/2021 4:32 PM STAFF FORESTER us Rhina Granados MD LAB BLOOD ORDERABLES Final R esult [facility] [address] [address] [facility] [place] [address] * Critical Care (05/05/2021 12:25 PM STAFF FORESTER) Narrative Frank Dugan MD - 05/05/2021 12:25 PM STAFF FORESTER Frank Dugan MD ? 05/05/2021 12:28 PM Critical Care Performed by: Frank Dugan MD Authorized by: Frank Dugan MD CRITICAL CARE: ??Team: ??CHNE ??Shift: ??AM ??Level of Billing: ??Critical Care ??My time spent with this patient was 60 minutes: Critical Provider Statement: I have seen and examined the patient on this day of service. I have reviewed and confirmed the history, physical exam, laboratory and radiologic data as documented in the signed ICU note. I have reviewed and discussed my treatment plan with the ICU team and other medical/environmental remediation consultant staff, making frequent assessments and decisions regarding this patient's complex medical care. Critical Care time was exclusive of time spent performing separately billed procedures, treating other patients, and teaching. This time was in addition to and separate from critical care provided by other practitioners in my group on this day of service. Critical Care was necessary to treat or prevent imminent or life-threatening deterioration of the following conditions: ? Acute delirium and Encephalopathy/altered mental status ?? Vasoplegic shock and ST-Elevation myocardial infarction (STEMI) ?? S/P CABG X 4 Increasing FIO2/PEEP requirement overnight COPD ?? Acute hypoxic respiratory failure ?? Hypo- or Hyperglycemia ?? Acute blood loss anemia ?? Leukocytosis ??This time was spent by me doing the following: ? Serial bedside patient exams ?? Acute pain control and Frequent neurologic exams ?? Initiation/active titration of inotropic medications and Initiation/active titration of vasoactive medications ?? Active and frequent reassessment of respiratory status and oxygen requirements, Optiflow support, Non-invasive positive pressure ventilator management, Incentive spirometry, pulmonary toilet and Frequent bronchodilator treatments ?? Active and frequent monitoring of intake/output and volumen status and Glycemic control ?? Active repletion of electrolytes and Active diuresis ?? Obtaining appropriate cultures and Review of prior or current culture/gram stain results ?? I spent time documenting in the medical record, I spent time discussing the management of this critically ill patient with consultants and the medical staff and I spent time reviewing and interpreting data from bedside monitors, laboratory results, and imaging Frank Dugan MD IN CLINIC/BEDSIDE ORDERABLES Final Result * POCT glucose (05/05/2021 12:07 PM STAFF FORESTER) Glucose, POC 137 70 - 199 mg/dL [facility] Blood 05/05/2021 12:0 7 PM STAFF FORESTER 05/05/2021 12:07 PM STAFF FORESTER Nalini Clayton MD LAB POCT ORDERABLES - DEVICE Fin al Result Performing Organization Address City/State/[facility] Co ma Phone Number [facility] [address] [place] [address] * eGFR (05/05/2021 12:04 PM STAFF FORESTER) eGFR 116 mL/min/1.7 3 m2 [facility] Comment: Interpretive Data Reference Interval Normal ?>/= 90 mL/min/1.73m2 Mildly decreased* ? 60 - 89 mL/min/1.73m2 Mildly to moderately decreased ?45 - 59 mL/min/1.73m2 Moderately to severely decreased ??30 - 44 mL/min/1.73m2 Severely decreased ?15 - 29 mL/min/1.73m2 Kidney Failure ?< 15 ??mL/min/1.73m2 *Relative to young adult level Estimated glomerular filtration rate is determined by the CKD-EPI equation recommended by the National Kidney Foundation (KDIGO 2012 Clinical Practice Guideline for the Evaluation and Management of Chronic Kidney Disease. Kidney Intnl Suppl Jun 2012;3:1). The CKD-EPI equation should not be used for patients with unstable renal function and has not been validated in children and those over 70. Current interpretive data was last reviewed 2020 Blood 05/05/2021 12:0 4 PM STAFF FORESTER 05/05/2021 12:13 PM STAFF FORESTER Rhina Granados MD LAB BLOOD ORDERABLES Final R esult Performing Organization Address [facility] Co de Phone Number [facility] [address] [place] [address] * Calcium, ionized (05/05/2021 12:04 PM STAFF FORESTER) Pathologist [facility] Ca, ionized, bld 4.63 4.60 - 5.20 mg/dL [facility] Ca, ionized, bld, calc 4.74 4.60 - 5.20 mg/dL [facility] Blood 05/05/2021 12:0 4 PM STAFF FORESTER 05/05/2021 12:12 PM STAFF FORESTER Rhina Granados MD LAB BLOOD ORDERABLES Final R esult [facility] [address] [place], [place] [id number] * (ABNORMAL) Blood gas, arterial (05/05/2021 12:04 PM STAFF FORESTER) pH, Art 7.44 7.35 - 7.45 [facility] PCO2, Arterial 30(L) 35 - 45 mmHg [facility] PO2, Arterial 66(L) 83 - 108 mmHg [facility] HCO3 Art (Calculated) 22 20 - 30 mmol/L [facility] BE, art -3 mmol/L [facility] Comment: Interpretive Data No Reference Range Established Current Interpretive Data was last revised on 2017 O2 Sat Art (Measured) 94 90 - 95 % [facility] Blood 05/05/2021 12:0 4 PM STAFF FORESTER 05/05/2021 12:12 PM STAFF FORESTER us Rhina Granados MD LAB BLOOD ORDERABLES Final R esult [facility] [address] [place] [address] * (ABNORMAL) Basic metabolic panel (05/05/2021 12:04 PM STAFF FORESTER) Sodium 141 135 - 145 mmol/L [facility] Potassium, pl 3.6 3.3 - 4.9 mmol/L [facility] Chloride 106 97 - 110 mmol/L [facility] CO2 20(L) 22 - 32 mmol/L [facility] Anion gap 15 2 - 15 mmol/L [facility] BUN 7(L) 8 - 25 mg/dL [facility] Creatinine 0.53(L) 0.80 - 1.30 mg/dL [facility] Comment:Icteric sample, test results may be affected. Glucose 163 70 - 199 mg/dL [facility] Comment: Interpretive Data Fasting glucose >/= 126 [...] interpretive data was last revised 2017. Calcium 8.3(L) 8.5 - 10.3 mg/dL [facility] Blood 05/05/2021 12:0 4 PM STAFF FORESTER 05/05/2021 12:13 PM STAFF FORESTER Rhina Granados MD LAB BLOOD ORDERABLES Final R esult Performing Organization Address City/[facility] Co de Phone Number [facility] [address] [address] [facility] [place] [address] * Magnesium (05/05/2021 12:04 PM STAFF FORESTER) Pathologist [facility] Magnesium 2.1 1.4 - 2.5 mg/dL [facility] Blood 05/05/2021 12:0 4 PM STAFF FORESTER 05/05/2021 12:13 PM STAFF FORESTER Rhina Granados MD LAB BLOOD ORDERABLES Final R esult Performing Organization Address [facility] de Phone Number [facility] [address] [address] [facility] [place] [address] * (ABNORMAL) CBC without differential (05/05/2021 12:04 PM STAFF FORESTER) Pathologist [facility] WBC 13.5(H) 3.8 - 9.9 K/cumm [facility] Hgb 9.8(L) 13.0 - 17.5 g/dL [facility] Hct 27.7(L) 38.9 - 50.3 % [facility] Plt 193 150 - 400 K/cumm [facility] MPV 11.5 9.1 - 12.3 fL [facility] RBC 3.19(L) 4.30 - 5.80 M/cumm [facility] CH MCV 86.8 81.3 - 96.4 fL [facility] CH MCH 30.7 27.1 - 33.3 pg [facility] CH MCHC 35.4 32.3 - 35.7 g/dL [facility] CH RDW CV 14.3 11.1 - 14.9 % [facility] CH RDW SD 44.9 35.7 - 48.1 fL [facility] CH NRBC abs 0.00 0.00 - 0.01 K/cumm [facility] Blood 05/05/2021 12:0 4 PM STAFF FORESTER 05/05/2021 12:13 PM STAFF FORESTER Rhina Granados MD LAB BLOOD ORDERABLES Final R esult Performing Organization Address [facility] Co de Phone Number [facility] [place] [address] [address] [facility] [place] [address] * POCT glucose (05/05/2021 11:14 AM STAFF FORESTER) Glucose, POC 119 70 - 199 mg/dL [facility] CH Blood 05/05/2021 11:1 4 AM STAFF FORESTER 05/05/2021 11:14 AM STAFF FORESTER Nalini Clayton MD LAB POCT ORDERABLES - DEVICE Fin al Result Performing Organization Address [facility] de Phone Number [facility] [place] [address] [place] [address] * POCT glucose (05/05/2021 10:19 AM STAFF FORESTER) Glucose, POC 136 70 - 199 mg/dL [facility] CH Blood 05/05/2021 10:1 9 AM STAFF FORESTER 05/05/2021 10:19 AM STAFF FORESTER Nalini Clayton MD LAB POCT ORDERABLES - DEVICE Fin al Result Performing Organization Address [facility] de Phone Number [facility] [place] [address] [facility] [place] [address] * (ABNORMAL) Blood gas, arterial (05/05/2021 10:15 AM STAFF FORESTER) pH, Art 7.45 7.35 - 7.45 [facility] PCO2, Arterial 29(L) 35 - 45 mmHg [facility] CH PO2, Arterial 75(L) 83 - 108 mmHg [facility] CH HCO3 Art (Calculated) 22 20 - 30 mmol/L [facility] CH BE, art -4 mmol/L [facility] Comment: Interpretive Data No Reference Range Established Current Interpretive Data was last revised on 2017 O2 Sat Art (Measured) 96(H) 90 - 95 % [facility] Blood 05/05/2021 10:1 5 AM STAFF FORESTER 05/05/2021 10:23 AM STAFF FORESTER us Nalini Clayton MD LAB BLOOD ORDERABLES Final Resul t [facility] [address] [place] [address] * (ABNORMAL) Aerobic culture and gram stain Tracheal aspirate Lung (05/05/2021 9:53 AM STAFF FORESTER) Direct Specimen Exam Stain: Moderate polymorphonuclear leukocytes seen. Few squamous epithelial cells seen. Moderate mixed bacterial tirso seen on Gram stain. Predominant organism seen on Gram stain: Yeast [facility] Comment:Testing performed by : [facility], [address] [place] [address]., [address] Report Final Report: Greater than or equal to 100,000 colonies/ml of Yeast Britta pneumonia is very rare and requires a histopathological diagnosis. ??The recovery of these organisms in routine culture, in most cases, only represents overgrowth of the organism secondary to antimicrobial therapy. Please contact the microbiology laboratory at [phone] if identification or susceptibility testing is clinically indicated. (.) [facility]K Comment:Testing performed by : [facility], [address] [place]., [address] Organism YEAST [facility] Tracheal aspirate (Lung) 05/05/2021 9:53 AM STAFF FORESTER 05/05/2021 12:42 PM STAFF FORESTER Narrative [facility]K - 05/07/2021 9:57 AM STAFF FORESTER Testing performed by [facility] Microbiology Laboratory ([phone]) Specimens submitted from normally sterile body sites will have all bacterial morphotypes identified. ??Specimens that contain grossly mixed tirso and/or are from body sites that are not normally sterile will be examined for Staphylococcus aureus, Pseudomonas aeruginosa, beta-hemolytic strep, vancomycin-resistant Enterococcus and fungus. ??If any of these are isolated, the organism will be reported. Current interpretive data was last revised on 2016. Rhina Granados MD LAB MICROBIOLOGY - GENERAL O RDERABLES Final Result Performing Organization Address [facility] Co de Phone Number [facility] [address] [facility] [address] [place], [place] [id number] * POCT glucose (05/05/2021 9:09 AM STAFF FORESTER) Glucose, POC 119 70 - 199 mg/dL [facility] Blood 05/05/2021 9:09 AM STAFF FORESTER 05/05/2021 9:09 AM STAFF FORESTER Nalini Clayton MD LAB POCT ORDERABLES - DEVICE Fin al Result Performing Organization Address [facility] de Phone Number [facility] [address] [place] [address] * POCT glucose (05/05/2021 7:56 AM STAFF FORESTER) Glucose, POC 95 70 - 199 mg/dL [facility] Blood 05/05/2021 7:56 AM STAFF FORESTER 05/05/2021 7:56 AM STAFF FORESTER Nalini Clayton MD LAB POCT ORDERABLES - DEVICE Fin al Result Performing Organization Address [facility] de Phone Number [facility] [address] [place], [place] [phone] * Transfuse RBC (05/05/2021 7:03 AM STAFF FORESTER) Blood specimen (specimen) Rhina Granados MD BLOOD TRANSFUSION ORDERABLES Final Result Performing Organization Address [facility] Co de Phone Number [facility] [address] [facility] [place] [address] * (ABNORMAL) Blood gas, arterial (05/05/2021 6:50 AM STAFF FORESTER) pH, Art 7.41 7.35 - 7.45 [facility] PCO2, Arterial 35 35 - 45 mmHg [facility] CH PO2, Arterial 72(L) 83 - 108 mmHg [facility] CH HCO3 Art (Calculated) 23 20 - 30 mmol/L [facility] CH BE, art -2 mmol/L [facility] Comment: Interpretive Data No Reference Range Established Current Interpretive Data was last revised on 2017 O2 Sat Art (Measured) 95 90 - 95 % [facility] Blood 05/05/2021 6:50 AM STAFF FORESTER 05/05/2021 6:55 AM STAFF FORESTER Rhina Granados MD LAB BLOOD ORDERABLES Final R esult Performing Organization Address City/[facility]/ZIP Co de Phone Number [facility] [address] [place] [address] * POCT glucose (05/05/2021 6:45 AM STAFF FORESTER) Glucose, POC 111 70 - 199 mg/dL [facility] CH Blood 05/05/2021 6:45 AM STAFF FORESTER 05/05/2021 6:45 AM STAFF FORESTER Nalini Clayton MD LAB POCT ORDERABLES - DEVICE Fin al Result Performing Organization Address [facility] Co de Phone Number [facility] [address] [place] [address] * XR Chest 1 View - Portable - in AM (05/05/2021 5:32 AM STAFF FORESTER) Anatomical Region Laterality Modality Body, Chest N/A Computed Radiogr aphy 05/05/2021 8:35 AM STAFF FORESTER Impressions 05/05/2021 8:35 AM STAFF FORESTER Increasing failure. Electronically signed by: Deacon Cummings M.D. Narrative 05/05/2021 8:35 AM STAFF FORESTER EXAMINATION: XR CHEST 1 VIEW DATE: 05/05/2021 4:15 AM HISTORY: 60-year-old man cardiac surgery follow-up FINDINGS:Compared with the study of the prior day, tubes and catheters remain satisfactorily positioned. Worsening pulmonary vascular congestive changes are seen. Cardiomegaly with postsurgical changes stable. No pneumothorax. Procedure Note Deacon Cummings MD - 05/05/2021 EXAMINATION: XR CHEST 1 VIEW DATE: 05/05/2021 4:15 AM HISTORY: 60-year-old man cardiac surgery follow-up FINDINGS:Compared with the study of the prior day, tubes and catheters remain satisfactorily positioned. Worsening pulmonary vascular congestive changes are seen. Cardiomegaly with postsurgical changes stable. No pneumothorax. IMPRESSION: Increasing failure. Electronically signed by: Deacon Cummings M.D. Rhina Granados MD IMG XR PROCEDURES Final Resu lt * POCT glucose (05/05/2021 5:07 AM STAFF FORESTER) Glucose, POC 123 70 - 199 mg/dL [facility] Blood 05/05/2021 5:07 AM STAFF FORESTER 05/05/2021 5:07 AM STAFF FORESTER Nalini Clayton MD LAB POCT ORDERABLES - DEVICE Fin al Result Performing Organization Address [facility] Co de Phone Number [facility] [address] [place] [phone] * (ABNORMAL) Blood gas, arterial (05/05/2021 4:41 AM STAFF FORESTER) pH, Art 7.42 7.35 - 7.45 [facility] CH PCO2, Arterial 34(L) 35 - 45 mmHg [facility] CH PO2, Arterial 80(L) 83 - 108 mmHg [facility] CH HCO3 Art (Calculated) 23 20 - 30 mmol/L [facility] CH BE, art -2 mmol/L [facility] Comment: Interpretive Data No Reference Range Established Current Interpretive Data was last revised on 2017 O2 Sat Art (Measured) 96(H) 90 - 95 % [facility] CH Blood 05/05/2021 4:41 AM STAFF FORESTER 05/05/2021 4:46 AM STAFF FORESTER Rhina Granados MD LAB BLOOD ORDERABLES Final R esult Performing Organization Address City/[facility]/ZIP Co de Phone Number [facility] [place] [address] [place] [address] * eGFR (05/05/2021 4:19 AM STAFF FORESTER) eGFR 117 mL/min/1.7 3 m2 [facility] Comment: Interpretive Data Reference Interval Normal ?>/= 90 mL/min/1.73m2 Mildly decreased* ? 60 - 89 mL/min/1.73m2 Mildly to moderately decreased ?45 - 59 mL/min/1.73m2 Moderately to severely decreased ??30 - 44 mL/min/1.73m2 Severely decreased ?15 - 29 mL/min/1.73m2 Kidney Failure ?< 15 ??mL/min/1.73m2 *Relative to young adult level Estimated glomerular filtration rate is determined by the CKD-EPI equation recommended by the National Kidney Foundation (KDIGO 2012 Clinical Practice Guideline for the Evaluation and Management of Chronic Kidney Disease. Kidney Intnl Suppl Jun 2012;3:1). The CKD-EPI equation should not be used for patients with unstable renal function and has not been validated in children and those over 70. Current interpretive data was last reviewed 2020 Blood 05/05/2021 4:19 AM STAFF FORESTER 05/05/2021 4:19 AM STAFF FORESTER us Nalini Clayton MD LAB BLOOD ORDERABLES Final Resul t [facility] [place] [address] [place] [address] * Manual Differential (05/05/2021 4:19 AM STAFF FORESTER) Pathologist [facility] Differential Auto [facility] RBC morphology Normal [facility] Platelet estimate Adequate [facility] Blood 05/05/2021 4:19 AM STAFF FORESTER 05/05/2021 4:19 AM STAFF FORESTER us Rhina Granados MD LAB BLOOD ORDERABLES Final R esult [facility] [address] [place] [address] * (ABNORMAL) Differential, auto (05/05/2021 4:19 AM STAFF FORESTER) Neutrophil abs 11.1(H) 1.7 - 6.5 K/cumm [facility] Imm gran abs 0.1 0.0 - 0.1 K/cumm [facility] Lymphocyte abs 0.4(L) 0.8 - 3.3 K/cumm [facility] Monocyte abs 1.5(H) 0.2 - 0.8 K/cumm [facility] Eosinophil abs 0.0 0.0 - 0.5 K/cumm [facility] Basophil abs 0.1 0.0 - 0.1 K/cumm [facility] Neutrophil pct 84.2 % [facility] Comment: Interpretive Data Percent cell count reference ranges are not reported, since discordance with absolute values may lead to misinterpretation of CBC data. Current Interpretive Data was last revised on 2017. Imm gran pct 0.9 % [facility] Comment: Interpretive Data Percent cell count reference ranges are not reported, since discordance with absolute values may lead to misinterpretation of CBC data. Current Interpretive Data was last revised on 2017. Lymphocyte pct 3.1 % [facility] Comment: Interpretive Data Percent cell count reference ranges are not reported, since discordance with absolute values may lead to misinterpretation of CBC data. Current Interpretive Data was last revised on 2017. Monocyte pct 11.2 % [facility] Comment: Interpretive Data Percent cell count reference ranges are not reported, since discordance with absolute values may lead to misinterpretation of CBC data. Current Interpretive Data was last revised on 2017. Eosinophil pct 0.2 % [facility] Comment: Interpretive Data Percent cell count reference ranges are not reported, since discordance with absolute values may lead to misinterpretation of CBC data. Current Interpretive Data was last revised on 2017. Basophil pct 0.4 % [facility] Comment: Interpretive Data Percent cell count reference ranges are not reported, since discordance with absolute values may lead to misinterpretation of CBC data. Current Interpretive Data was last revised on 2017. Blood 05/05/2021 4:19 AM STAFF FORESTER 05/05/2021 4:19 AM STAFF FORESTER Rhina Granados MD LAB BLOOD ORDERABLES Final R esult Performing Organization Address City/[facility]/ZIP Co de Phone Number [facility] [address] [place] [address] * (ABNORMAL) CBC with auto differential (05/05/2021 4:19 AM STAFF FORESTER) WBC 13.2(H) 3.8 - 9.9 K/cumm [facility] Hgb 10.7(L) 13.0 - 17.5 g/dL [facility] Comment:Hemoglobin delta due to apparent blood transfusion. Hct 30.4(L) 38.9 - 50.3 % [facility] Plt 191 150 - 400 K/cumm [facility] MPV 11.2 9.1 - 12.3 fL [facility] RBC 3.46(L) 4.30 - 5.80 M/cumm [facility] MCV 87.9 81.3 - 96.4 fL [facility] MCH 30.9 27.1 - 33.3 pg [facility] MCHC 35.2 32.3 - 35.7 g/dL [facility] RDW CV 14.1 11.1 - 14.9 % [facility] RDW SD 44.9 35.7 - 48.1 fL [facility] NRBC abs 0.00 0.00 - 0.01 K/cumm [facility] Blood 05/05/2021 4:19 AM STAFF FORESTER 05/05/2021 4:19 AM STAFF FORESTER Rhina Granados MD LAB BLOOD ORDERABLES Edited Result - Final Performing Organization Address City/[facility]/ZIP Co de Phone Number [facility] [address] [place] [address] * Magnesium (05/05/2021 4:19 AM STAFF FORESTER) Pathologist [facility] Magnesium 1.9 1.4 - 2.5 mg/dL [facility] Blood 05/05/2021 4:19 AM STAFF FORESTER 05/05/2021 4:19 AM STAFF FORESTER Silviano Huddleston ESCROW CLERK LAB BLOOD ORDERABLES Final Result Performing Organization Address [facility] Co de Phone Number [facility] [address] [place] [address] * Phosphorus (05/05/2021 4:19 AM STAFF FORESTER) Pathologist [facility] Phosphorus, pl 3.4 2.3 - 4.5 mg/dL [facility] Blood 05/05/2021 4:19 AM STAFF FORESTER 05/05/2021 4:19 AM STAFF FORESTER Silviano Huddleston ESCROW CLERK LAB BLOOD ORDERABLES Final Result Performing Organization Address [facility] de Phone Number [facility] [address] [place] [address] * (ABNORMAL) Basic metabolic panel (05/05/2021 4:19 AM STAFF FORESTER) Pathologist [facility] Sodium 143 135 - 145 mmol/L [facility] Potassium, pl 4.4 3.3 - 4.9 mmol/L [facility] Chloride 111(H) 97 - 110 mmol/L [facility] CO2 21(L) 22 - 32 mmol/L [facility] Anion gap 11 2 - 15 mmol/L [facility] BUN 7(L) 8 - 25 mg/dL [facility] Creatinine 0.52(L) 0.80 - 1.30 mg/dL [facility] Glucose 126 70 - 199 mg/dL [facility] Comment: Interpretive Data Fasting glucose >/= 126 [...] interpretive data was last revised 2017. Calcium 7.0(L) 8.5 - 10.3 mg/dL [facility] Blood 05/05/2021 4:19 AM STAFF FORESTER 05/05/2021 4:19 AM STAFF FORESTER Rhina Granados MD LAB BLOOD ORDERABLES Final R esult Performing Organization Address [facility] Co de Phone Number [facility] [address] [address] [facility] [place] [address] * Oxyhemoglobin, pulmonary artery (05/05/2021 4:08 AM STAFF FORESTER) Oxyhemoglobin, PA 58.8 % [facility] Comment: Interpretive Data No reference range established. Current interpretive data was last revised 2019. Blood 05/05/2021 4:08 AM STAFF FORESTER 05/05/2021 4:17 AM STAFF FORESTER Rhina Granados MD LAB BLOOD ORDERABLES Final R esult Performing Organization Address [facility] Co de Phone Number [facility] [address] [place] [address] * POCT glucose (05/05/2021 3:59 AM STAFF FORESTER) Glucose, POC 122 70 - 199 mg/dL [facility] Blood 05/05/2021 3:59 AM STAFF FORESTER 05/05/2021 3:59 AM STAFF FORESTER Nalini Clayton MD LAB POCT ORDERABLES - DEVICE Fin al Result Performing Organization Address [facility] Co de Phone Number [facility] [address] [place] [address] * Transfuse RBC (05/05/2021 3:35 AM STAFF FORESTER) Blood specimen (specimen) Rhina Granados MD BLOOD TRANSFUSION ORDERABLES Final Result Performing Organization Address [facility] Co de Phone Number [facility] [address] [address] [facility] [place] [address] * POCT glucose (05/05/2021 2:55 AM STAFF FORESTER) Glucose, POC 141 70 - 199 mg/dL [facility] Blood 05/05/2021 2:55 AM STAFF FORESTER 05/05/2021 2:55 AM STAFF FORESTER Nalini Clayton MD LAB POCT ORDERABLES - DEVICE Fin al Result Performing Organization Address [facility] de Phone Number [facility] [address] [address] [facility] [place] [address] * Oxyhemoglobin, pulmonary artery (05/05/2021 2:32 AM STAFF FORESTER) Oxyhemoglobin, PA 40.0 % [facility] Comment: Interpretive Data No reference range established. Current interpretive data was last revised 2019. Blood 05/05/2021 2:32 AM STAFF FORESTER 05/05/2021 2:40 AM STAFF FORESTER Rhina Granados MD LAB BLOOD ORDERABLES Final R esult Performing Organization Address [facility] Co de Phone Number [facility] [address] [address] [facility] [place] [address] * eGFR (05/05/2021 2:25 AM STAFF FORESTER) eGFR 107 mL/min/1.7 3 m2 [facility] Comment: Interpretive Data Reference Interval Normal ?>/= 90 mL/min/1.73m2 Mildly decreased* ? 60 - 89 mL/min/1.73m2 Mildly to moderately decreased ?45 - 59 mL/min/1.73m2 Moderately to severely decreased ??30 - 44 mL/min/1.73m2 Severely decreased ?15 - 29 mL/min/1.73m2 Kidney Failure ?< 15 ??mL/min/1.73m2 *Relative to young adult level Estimated glomerular filtration rate is determined by the CKD-EPI equation recommended by the National Kidney Foundation (KDIGO 2012 Clinical Practice Guideline for the Evaluation and Management of Chronic Kidney Disease. Kidney Intnl Suppl Jun 2012;3:1). The CKD-EPI equation should not be used for patients with unstable renal function and has not been validated in children and those over 70. Current interpretive data was last reviewed 2020 Blood 05/05/2021 2:25 AM STAFF FORESTER 05/05/2021 2:29 AM STAFF FORESTER Rhina Granados MD LAB BLOOD ORDERABLES Final R esult Performing Organization Address City/[facility] Co de Phone Number [facility] [address] [place] [address] * (ABNORMAL) Magnesium (05/05/2021 2:25 AM STAFF FORESTER) Magnesium 2.6(H) 1.4 - 2.5 mg/dL [facility] Blood 05/05/2021 2:25 AM STAFF FORESTER 05/05/2021 2:28 AM STAFF FORESTER Rhina Granados MD LAB BLOOD ORDERABLES Final R esult Performing Organization Address City/[facility]/ZIP Co de Phone Number [facility] [address] [address] [facility] [place] [address] * (ABNORMAL) Basic metabolic panel (05/05/2021 2:25 AM STAFF FORESTER) Sodium 142 135 - 145 mmol/L [facility] Potassium, pl 4.0 3.3 - 4.9 mmol/L [facility] Chloride 110 97 - 110 mmol/L [facility] CO2 22 22 - 32 mmol/L [facility] Anion gap 10 2 - 15 mmol/L [facility] BUN 7(L) 8 - 25 mg/dL [facility] Creatinine 0.64(L) 0.80 - 1.30 mg/dL [facility] Glucose 135 70 - 199 mg/dL [facility] Comment: Interpretive Data Fasting glucose >/= 126 [...] interpretive data was last revised 2017. Calcium 8.2(L) 8.5 - 10.3 mg/dL [facility] Blood 05/05/2021 2:25 AM STAFF FORESTER 05/05/2021 2:28 AM STAFF FORESTER Rhina Granados MD LAB BLOOD ORDERABLES Final R esult Performing Organization Address City/[facility] Co de Phone Number [facility] [address] [place] [address] * Lactate (05/05/2021 2:25 AM STAFF FORESTER) Lactate 1.6 0.7 - 2.0 mmol/L [facility] Blood 05/05/2021 2:25 AM STAFF FORESTER 05/05/2021 2:28 AM STAFF FORESTER Rhina Granados MD LAB BLOOD ORDERABLES Final R esult Performing Organization Address City/[facility] Co de Phone Number [facility] [address] [place] [address] * Calcium, ionized (05/05/2021 2:25 AM STAFF FORESTER) Ca, ionized, bld 4.72 4.60 - 5.20 mg/dL [facility] Ca, ionized, bld, calc 4.80 4.60 - 5.20 mg/dL [facility] Blood 05/05/2021 2:25 AM STAFF FORESTER 05/05/2021 2:28 AM STAFF FORESTER Rhina Granados MD LAB BLOOD ORDERABLES Final R esult Performing Organization Address City/[facility]/ZIP Co de Phone Number [facility] [address] [place] [address] * (ABNORMAL) Blood gas, arterial (05/05/2021 2:25 AM STAFF FORESTER) pH, Art 7.43 7.35 - 7.45 [facility] PCO2, Arterial 34(L) 35 - 45 mmHg [facility] PO2, Arterial 58(L) 83 - 108 mmHg [facility] HCO3 Art (Calculated) 23 20 - 30 mmol/L [facility] BE, art -2 mmol/L [facility] Comment: Interpretive Data No Reference Range Established Current Interpretive Data was last revised on 2017 O2 Sat Art (Measured) 91 90 - 95 % [facility] Blood 05/05/2021 2:25 AM STAFF FORESTER 05/05/2021 2:28 AM STAFF FORESTER Rhnia Granados MD LAB BLOOD ORDERABLES Final R esult Performing Organization Address [facility]/ZIP Co de Phone Number [facility] [address] [address] * Transfuse RBC (05/05/2021 1:38 AM STAFF FORESTER) Blood specimen (specimen) us Rhina Granados MD BLOOD TRANSFUSION ORDERABLES Final Result Performing Organization Address City/[facility]/ZIP Co de Phone Number [facility] [address] [place] [address] * Transfuse RBC: 1 Units (05/05/2021 1:38 AM STAFF FORESTER) Blood specimen (specimen) us Rhina Granados MD BLOOD TRANSFUSION ORDERABLES Final Result * POCT glucose (05/05/2021 1:07 AM STAFF FORESTER) Glucose, POC 103 70 - 199 mg/dL [facility] Blood 05/05/2021 1:07 AM STAFF FORESTER 05/05/2021 1:07 AM STAFF FORESTER us Nalini Clayton MD LAB POCT ORDERABLES - DEVICE Fin al Result [facility] [address] [place] [address] * eGFR (05/05/2021 12:21 AM STAFF FORESTER) eGFR 118 mL/min/1.7 3 m2 [facility] Comment: Interpretive Data Reference Interval Normal ?>/= 90 mL/min/1.73m2 Mildly decreased* ? 60 - 89 mL/min/1.73m2 Mildly to moderately decreased ?45 - 59 mL/min/1.73m2 Moderately to severely decreased ??30 - 44 mL/min/1.73m2 Severely decreased ?15 - 29 mL/min/1.73m2 Kidney Failure ?< 15 ??mL/min/1.73m2 *Relative to young adult level Estimated glomerular filtration rate is determined by the CKD-EPI equation recommended by the National Kidney Foundation (KDIGO 2012 Clinical Practice Guideline for the Evaluation and Management of Chronic Kidney Disease. Kidney Intnl Suppl Jun 2012;3:1). The CKD-EPI equation should not be used for patients with unstable renal function and has not been validated in children and those over 70. Current interpretive data was last reviewed 2020 Blood 05/05/2021 12:2 1 AM STAFF FORESTER 05/05/2021 12:21 AM STAFF FORESTER us Rhina Granados MD LAB BLOOD ORDERABLES Final R esult Performing Organization Address [facility] Co de Phone Number [facility] [address] [address] [facility] [place] [address] * (ABNORMAL) Protime-INR (05/05/2021 12:21 AM STAFF FORESTER) PT 14.4(H) 9.5 - 13.6 sec [facility] INR 1.3(H) 0.9 - 1.2 [facility] Comment: Interpretive data Oral anticoagulant therapeutic ranges: Venous thromboembolism prophylaxis or treatment: 2.0-3.0 CARDIOLOGY Standard range: 2.0-3.0 High-intensity range: 2.5-3.5 Refer to indication-specific guidelines for appropriate target ranges for prosthetic heart valve replacement. Current interpretive data was last revised on 2019. Blood 05/05/2021 12:2 1 AM STAFF FORESTER 05/05/2021 12:21 AM STAFF FORESTER Result [facility] Rhina Granados MD LAB BLOOD ORDERABLES Final R esult Performing Organization Address City/[facility] Co de Phone Number [facility] [address] [facility] [place] [address] * aPTT (05/05/2021 12:21 AM STAFF FORESTER) aPTT 33 27 - 37 sec [facility] Comment: Interpretive Data Therapeutic heparin range: 60.0 - 94.0 seconds. Based on correlation with therapeutic heparin activity range of 0.3-0.7 Units/mL. Current interpretive data was last revised on 2020. Blood 05/05/2021 12:2 1 AM STAFF FORESTER 05/05/2021 12:21 AM STAFF FORESTER us Rhina Granados MD LAB BLOOD ORDERABLES Final R esult [facility] [place] [address] [place] [address] * (ABNORMAL) CBC without differential (05/05/2021 12:21 AM STAFF FORESTER) WBC 14.3(H) 3.8 - 9.9 K/cumm [facility] Hgb 7.6(L) 13.0 - 17.5 g/dL [facility] Hct 22.6(L) 38.9 - 50.3 % [facility] Plt 206 150 - 400 K/cumm [facility] MPV 11.4 9.1 - 12.3 fL [facility] RBC 2.48(L) 4.30 - 5.80 M/cumm [facility] MCV 91.1 81.3 - 96.4 fL [facility] MCH 30.6 27.1 - 33.3 pg [facility] MCHC 33.6 32.3 - 35.7 g/dL [facility] RDW CV 14.1 11.1 - 14.9 % [facility] RDW SD 46.9 35.7 - 48.1 fL [facility] NRBC abs 0.00 0.00 - 0.01 K/cumm [facility] Blood 05/05/2021 12:2 1 AM STAFF FORESTER 05/05/2021 12:21 AM STAFF FORESTER Rhina Granados MD LAB BLOOD ORDERABLES Final R esult [facility] [place] [address] [place] [address] * (ABNORMAL) Basic metabolic panel (05/05/2021 12:21 AM STAFF FORESTER) Sodium 142 135 - 145 mmol/L [facility] Potassium, pl 3.9 3.3 - 4.9 mmol/L [facility] Chloride 109 97 - 110 mmol/L [facility] CO2 24 22 - 32 mmol/L [facility] Anion gap 9 2 - 15 mmol/L [facility] BUN 7(L) 8 - 25 mg/dL [facility] Creatinine 0.51(L) 0.80 - 1.30 mg/dL [facility] Glucose 97 70 - 199 mg/dL [facility] Comment: Interpretive Data Fasting glucose >/= 126 [...] interpretive data was last revised 2017. Calcium 8.4(L) 8.5 - 10.3 mg/dL [facility] Blood 05/05/2021 12:2 1 AM STAFF FORESTER 05/05/2021 12:21 AM STAFF FORESTER Rhina Granados MD LAB BLOOD ORDERABLES Final R esult Performing Organization Address [facility] Co de Phone Number [facility] [address] [place] [address] * POCT glucose (05/04/2021 11:53 PM STAFF FORESTER) Glucose, POC 96 70 - 199 mg/dL [facility] Blood 05/04/2021 11:5 3 PM STAFF FORESTER 05/04/2021 11:53 PM STAFF FORESTER Nalini Clayton MD LAB POCT ORDERABLES - DEVICE Fin al Result Performing Organization Address [facility] Co de Phone Number [facility] [address] [place], [place] [id number] * (ABNORMAL) Calcium, ionized (05/04/2021 11:49 PM STAFF FORESTER) Ca, ionized, bld 4.48(L) 4.60 - 5.20 mg/dL [facility] Ca, ionized, bld, calc 4.53(L) 4.60 - 5.20 mg/dL [facility] Blood 05/04/2021 11:4 9 PM STAFF FORESTER 05/05/2021 12:14 AM STAFF FORESTER Rhina Granados MD LAB BLOOD ORDERABLES Final R esult Performing Organization Address [facility] de Phone Number [facility] [address] [facility] [place] [address] * (ABNORMAL) Blood gas, arterial (05/04/2021 11:49 PM STAFF FORESTER) pH, Art 7.42 7.35 - 7.45 [facility] PCO2, Arterial 37 35 - 45 mmHg [facility] PO2, Arterial 64(L) 83 - 108 mmHg [facility] HCO3 Art (Calculated) 24 20 - 30 mmol/L [facility] BE, art 0 mmol/L [facility] Comment: Interpretive Data No Reference Range Established Current Interpretive Data was last revised on 2017 O2 Sat Art (Measured) 92 90 - 95 % [facility] Blood 05/04/2021 11:4 9 PM STAFF FORESTER 05/05/2021 12:14 AM STAFF FORESTER Rhina Granados MD LAB BLOOD ORDERABLES Final R esult Performing Organization Address [facility] de Phone Number [facility] [address] [facility] [place] [address] * POCT glucose (05/04/2021 10:59 PM STAFF FORESTER) Glucose, POC 122 70 - 199 mg/dL [facility] Blood 05/04/2021 10:5 9 PM STAFF FORESTER 05/04/2021 10:59 PM STAFF FORESTER Nalini Clayton MD LAB POCT ORDERABLES - DEVICE Fin al Result Performing Organization Address [facility] de Phone Number [facility] [address] [place] [address] * Prepare RBC: 1 Units (05/04/2021 9:56 PM STAFF FORESTER) [facility] Product code [id number] [facility] Unit Number [id number] [facility] Product Blood Type APOS [facility] Dispense Status PRESUMED TRANSFUSED [facility] Blood 05/04/2021 9:56 PM STAFF FORESTER Narrative [facility] - 05/05/2021 10:15 AM STAFF FORESTER Are special requirements needed? (all products are leukoreduced)->No Date required:-[id number] LRRBC # of [id number] Reasons:-Active bleeding, Hgb <8 g/dL} us Rhina Granados MD BLOOD BANK PRODUCT ORDERABLE S Final Result Performing Organization Address City/[facility]/ZIP Co de Phone Number [facility] [address] [place] [address] * POCT glucose (05/04/2021 9:39 PM STAFF FORESTER) [facility] Glucose, POC 139 70 - 199 mg/dL [facility] Blood 05/04/2021 9:39 PM STAFF FORESTER 05/04/2021 9:39 PM STAFF FORESTER us Nalini Clayton MD LAB POCT ORDERABLES - DEVICE Fin al Result Performing Organization Address [facility] de Phone Number [facility] [address] [place] [address] * eGFR (05/04/2021 9:35 PM STAFF FORESTER) [facility] eGFR 113 mL/min/1.7 3 m2 [facility] Comment: Interpretive Data Reference Interval Normal ?>/= 90 mL/min/1.73m2 Mildly decreased* ? 60 - 89 mL/min/1.73m2 Mildly to moderately decreased ?45 - 59 mL/min/1.73m2 Moderately to severely decreased ??30 - 44 mL/min/1.73m2 Severely decreased ?15 - 29 mL/min/1.73m2 Kidney Failure ?< 15 ??mL/min/1.73m2 *Relative to young adult level Estimated glomerular filtration rate is determined by the CKD-EPI equation recommended by the National Kidney Foundation (KDIGO 2012 Clinical Practice Guideline for the Evaluation and Management of Chronic Kidney Disease. Kidney Intnl Suppl Jun 2012;3:1). The CKD-EPI equation should not be used for patients with unstable renal function and has not been validated in children and those over 70. Current interpretive data was last reviewed 2020 Blood 05/04/2021 9:35 PM STAFF FORESTER 05/04/2021 9:35 PM STAFF FORESTER Rhina Granados MD LAB BLOOD ORDERABLES Final [facility] Performing Organization Address [facility] Co de Phone Number [facility] [address] [place] [address] * aPTT (05/04/2021 9:35 PM STAFF FORESTER) aPTT 30 27 - 37 sec [facility] Comment: Interpretive Data Therapeutic heparin range: 60.0 - 94.0 seconds. Based on correlation with therapeutic heparin activity range of 0.3-0.7 Units/mL. Current interpretive data was last revised on 2020. Blood 05/04/2021 9:35 PM STAFF FORESTER 05/04/2021 9:35 PM STAFF FORESTER Rhina Granados MD LAB BLOOD ORDERABLES Final R [facility] Performing Organization Address City/[facility] Co de Phone Number [facility] [address] [place], [place] [id number] * (ABNORMAL) Protime-INR (05/04/2021 9:35 PM STAFF FORESTER) PT 14.8(H) 9.5 - 13.6 sec [facility] INR 1.3(H) 0.9 - 1.2 [facility] Comment: Interpretive data Oral anticoagulant therapeutic ranges: Venous thromboembolism prophylaxis or treatment: 2.0-3.0 CARDIOLOGY Standard range: 2.0-3.0 High-intensity range: 2.5-3.5 Refer to indication-specific guidelines for appropriate target ranges for prosthetic heart valve replacement. Current interpretive data was last revised on 2019. Blood 05/04/2021 9:35 PM STAFF FORESTER 05/04/2021 9:35 PM STAFF FORESTER Rhina Granados MD LAB BLOOD ORDERABLES Final R [facility]ult [facility] [address] [place] [address] * (ABNORMAL) CBC without differential (05/04/2021 9:35 PM STAFF FORESTER) WBC 19.0(H) 3.8 - 9.9 K/cumm [facility] Hgb 7.2(L) 13.0 - 17.5 g/dL [facility] Comment:Hemoglobin delta due to active bleeding. Hemoglobin delta due to surgical procedure. Hct 21.2(L) 38.9 - 50.3 % [facility] Plt 215 150 - 400 K/cumm [facility] MPV 10.9 9.1 - 12.3 fL [facility] RBC 2.34(L) 4.30 - 5.80 M/cumm [facility] MCV 90.6 81.3 - 96.4 fL [facility] MCH 30.8 27.1 - 33.3 pg [facility] MCHC 34.0 32.3 - 35.7 g/dL [facility] RDW CV 13.9 11.1 - 14.9 % [facility] RDW SD 46.4 35.7 - 48.1 fL [facility] NRBC abs 0.00 0.00 - 0.01 K/cumm [facility] Blood 05/04/2021 9:35 PM STAFF FORESTER 05/04/2021 9:35 PM STAFF FORESTER us Rhina A. Munfakh MD LAB BLOOD ORDERABLES Final R esult Performing Organization Address City/[facility]/ZIP Co de Phone Number [facility] [address] [place], [place] [id number] * Magnesium (05/04/2021 9:35 PM STAFF FORESTER) Magnesium 2.4 1.4 - 2.5 mg/dL [facility] Blood 05/04/2021 9:35 PM STAFF FORESTER 05/04/2021 9:35 PM STAFF FORESTER Rhina Granados MD LAB BLOOD ORDERABLES Final [facility] Performing Organization Address [facility] Co de Phone Number [facility] [place] [address] [place] [address] * (ABNORMAL) Basic metabolic panel (05/04/2021 9:35 PM STAFF FORESTER) Sodium 141 135 - 145 mmol/L [facility] Potassium, pl 3.3 3.3 - 4.9 mmol/L [facility] Chloride 106 97 - 110 mmol/L [facility] CO2 26 22 - 32 mmol/L [facility] Anion gap 9 2 - 15 mmol/L [facility] BUN 7(L) 8 - 25 mg/dL [facility] Creatinine 0.56(L) 0.80 - 1.30 mg/dL [facility] Glucose 165 70 - 199 mg/dL [facility] Comment: Interpretive Data Fasting glucose >/= 126 [...] interpretive data was last revised 2017. Calcium 7.7(L) 8.5 - 10.3 mg/dL [facility] Blood 05/04/2021 9:35 PM STAFF FORESTER 05/04/2021 9:35 PM STAFF FORESTER Rhina Granados MD LAB BLOOD ORDERABLES Final R esult Performing Organization Address [facility] Co de Phone Number [facility]K [address] [facility] [place] [address] * (ABNORMAL) Blood gas, arterial (05/04/2021 9:34 PM STAFF FORESTER) pH, Art 7.33(L) 7.35 - 7.45 [facility] PCO2, Arterial 48(H) 35 - 45 mmHg [facility] PO2, Arterial 74(L) 83 - 108 mmHg [facility] HCO3 Art (Calculated) 24 20 - 30 mmol/L [facility] BE, art 0 mmol/L [facility] Comment: Interpretive Data No Reference Range Established Current Interpretive Data was last revised on 2017 O2 Sat Art (Measured) 94 90 - 95 % [facility] Blood 05/04/2021 9:34 PM STAFF FORESTER 05/04/2021 9:34 PM STAFF FORESTER Rhina Granados MD LAB BLOOD ORDERABLES Final R esult Performing Organization Address [facility] de Phone Number [facility] [address] [address] * (ABNORMAL) Calcium, ionized (05/04/2021 9:34 PM STAFF FORESTER) Ca, ionized, bld 4.12(L) 4.60 - 5.20 mg/dL [facility] Ca, ionized, bld, calc 3.97(L) 4.60 - 5.20 mg/dL [facility] Blood 05/04/2021 9:34 PM STAFF FORESTER 05/04/2021 9:34 PM STAFF FORESTER Rhina Granados MD LAB BLOOD ORDERABLES Final R esult Performing Organization Address [facility]/ZIP Co de Phone Number [facility] [place] [address] [place] [address] * XR Chest 1 Vw Portable (05/04/2021 8:53 PM STAFF FORESTER) Anatomical Region Laterality Modality Body, Chest N/A Computed Radiogr aphy 05/05/2021 8:32 AM STAFF FORESTER Impressions 05/05/2021 8:32 AM STAFF FORESTER Tube placements with postsurgical changes with cardiomegaly with interstitial lung disease and mild failure with no pneumothorax. Electronically signed by: Deacon Cummings M.D. Narrative 05/05/2021 8:32 AM STAFF FORESTER EXAMINATION: XR CHEST 1 VIEW DATE: 05/04/2021 8:40 PM HISTORY: 60-year-old man coronary artery bypass follow-up FINDINGS:Compared with the study of earlier the same day, postsurgical changes now evident within the heart and mediastinum with cardiomegaly. Interval placement of endotracheal tube, nasogastric tube, [place]-Radha catheter, left thoracostomy tube and mediastinal drain all in satisfactory position. No pneumothorax. Interstitial lung disease with mild pulmonary vascular congestive changes. Aortic balloon pump is no longer seen. Procedure Note Deacon Cummings MD - 05/05/2021 EXAMINATION: XR CHEST 1 VIEW DATE: 05/04/2021 8:40 PM HISTORY: 60-year-old man coronary artery bypass follow-up FINDINGS:Compared with the study of earlier the same day, postsurgical changes now evident within the heart and mediastinum with cardiomegaly. Interval placement of endotracheal tube, nasogastric tube, [place]-Radha catheter, left thoracostomy tube and mediastinal drain all in satisfactory position. No pneumothorax. Interstitial lung disease with mild pulmonary vascular congestive changes. Aortic balloon pump is no longer seen. IMPRESSION: Tube placements with postsurgical changes with cardiomegaly with interstitial lung disease and mild failure with no pneumothorax. Electronically signed by: Deacon Cummings M.D. Rhina Granados MD IMG XR PROCEDURES Final Resu lt * (ABNORMAL) POCT glucose (05/04/2021 8:22 PM STAFF FORESTER) Glucose, POC 203(H) 70 - 199 mg/dL [facility] Blood 05/04/2021 8:22 PM STAFF FORESTER 05/04/2021 8:22 PM STAFF FORESTER Nalini Clayton MD LAB POCT ORDERABLES - DEVICE Fin al Result [facility] [place] [address] [place] [address] * Critical Care (05/04/2021 8:13 PM STAFF FORESTER) Narrative Wally Aguilar DO - 05/04/2021 8:13 PM STAFF FORESTER Wally Aguilar, DO ? 05/05/2021 12:46 AM Critical Care Performed by: Wally Aguilar DO Authorized by: Wally Aguilar DO CRITICAL CARE: ??Team: ??CHNE ??Shift: ??PM ??Level of Billing: ??Critical Care ??My time spent with this patient was 100 minutes: Critical Provider Statement: I have seen and examined the patient on this day of service. I have reviewed and confirmed the history, physical exam, laboratory and radiologic data as documented in the signed ICU note. I have reviewed and discussed my treatment plan with the ICU team and other medical/environmental remediation consultant staff, making frequent assessments and decisions regarding this patient's complex medical care. Critical Care time was exclusive of time spent performing separately billed procedures, treating other patients, and teaching. This time was in addition to and separate from critical care provided by other practitioners in my group on this day of service. Critical Care was necessary to treat or prevent imminent or life-threatening deterioration of the following conditions: ? Acute pain/acute postoperative pain and Agitation requiring sedation ?? Cardiogenic shock, Hypovolemic shock, Hemorrhagic shock and ST-Elevation myocardial infarction (STEMI) ?? Hematuria with bladder outlet obstruction ?? Acute respiratory insufficiency ?? Hypo- or hyperthermia ??This time was spent by me doing the following: ? Serial bedside patient exams ?? Administration of sedatives and psychotropic medications, Acute pain control and Active titration of continuous sedation ?? Cardiac pacing, Initiation/active titration of vasoactive medications, Initiation/active titration of inotropic medications and Interpretation of cardiac output measurements ?? Continuous bladder irrigation ?? Active and frequent reassessment of respiratory status and oxygen requirements and Invasive ventilator management, reassessment, and titration ?? Active and frequent monitoring of intake/output and volumen status and Gastric tube placement and interpretation of results/output ?? Transfusion of blood products and Replacement of coagulation factors ?? I spent time reviewing and interpreting data from bedside monitors, laboratory results, and imaging, I spent time discussing the management of this critically ill patient with consultants and the medical staff and I spent time documenting in the medical record Wally Aguilar DO IN CLINIC/BEDSIDE ORDER REJI Final Result * Transfuse cryoprecipitate (pooled units) (05/04/2021 8:12 PM STAFF FORESTER) Blood specimen (specimen) Can Jones MD BLOOD TRANSFUSION ORD ERABLES Final Result Performing Organization Address [facility] Co de Phone Number [facility] [address] [place] [address] * Transfuse plasma (05/04/2021 7:49 PM STAFF FORESTER) Blood specimen (specimen) Can Jones MD BLOOD TRANSFUSION ORD ERABLES Final Result Performing Organization Address [facility]/ZIP Co de Phone Number [facility] [address] [address] * Transfuse platelets (05/04/2021 7:29 PM STAFF FORESTER) Blood specimen (specimen) Can Jones MD BLOOD TRANSFUSION ORD ERABLES Final Result Performing Organization Address [facility] Co de Phone Number [facility] [address] [place] [address] * (ABNORMAL) POC Blood Gas and Chemistries, Arterial - (05/04/2021 7:28 PM STAFF FORESTER) [facility] pH, Art POC 7.32(L) 7.35 - 7.45 [facility] pCO2, Art POC 42 35 - 45 mmHg [facility] pO2, Art POC 102 83 - 108 mmHg [facility] Na, POC 136 135 - 145 mmol/L [facility] K POC 3.7 3.3 - 4.9 mmol/L [facility] Comment: Interpretive Data Unable to assess hemolysis. ??Invitro hemolysis causes falsely elevated potassium. Current Interpretive Data was last revised on 2020. Ionized Ca, POC 5.10 4.60 - 5.20 mg/dL [facility] Glucose, POC 199 70 - 199 mg/dL [facility] Lactate, POC 1.0 0.7 - 2.0 mmol/L [facility] SO2 (joelle) arterial 98(H) 90 - 95 % [facility] Total CO2, Art POC 23 21 - 30 mmol/L [facility] BE, art, POC -4 mmol/L [facility] HCO3, Art POC 22 20 - 30 mmol/L [facility] Hct, POC 23.0(L) 38.9 - 50.3 % [facility] Total Hb, POC 7.8(L) 13.0 - 17.5 g/dL [facility] Blood 05/04/2021 7:28 PM STAFF FORESTER 05/04/2021 7:28 PM STAFF FORESTER us Nalini Clayotn MD LAB POCT ORDERABLES - DEVICE Fin al Result [facility] [address] [place] [address] * Prepare cryoprecipitate (pooled units): 2 Units (05/04/2021 6:54 PM STAFF FORESTER) Product code [id number] [facility] Unit Number [id number] [facility] Product Blood Type OPOS [facility] Dispense Status PRESUMED TRANSFUSED [facility] Product code [id number] [facility] Unit Number [id number] [facility] Product Blood Type APOS [facility] Dispense Status PRESUMED TRANSFUSED [facility] Blood (Blood, Venous) 05/04/2021 6:54 PM STAFF FORESTER Narrative [facility] - 05/05/2021 10:15 AM STAFF FORESTER Other indication->CABG with recent TURP Cryo # of [id number] Reasons:-Other (Specify)} us Rhina Granados MD BLOOD BANK PRODUCT ORDERABLE S Final Result [facility] [address] [place] [address] * (ABNORMAL) POC Blood Gas and Chemistries, Arterial - (05/04/2021 6:53 PM STAFF FORESTER) pH, Art POC 7.34(L) 7.35 - 7.45 [facility] pCO2, Art POC 41 35 - 45 mmHg [facility] pO2, Art POC 172(H) 83 - 108 mmHg [facility] Na, POC 136 135 - 145 mmol/L [facility] K POC 3.8 3.3 - 4.9 mmol/L [facility] Comment: Interpretive Data Unable to assess hemolysis. ??Invitro hemolysis causes falsely elevated potassium. Current Interpretive Data was last revised on 2020. Ionized Ca, POC 3.88(L) 4.60 - 5.20 mg/dL [facility] Glucose, POC 211(H) 70 - 199 mg/dL [facility] Lactate, POC 1.2 0.7 - 2.0 mmol/L [facility] SO2 (joelle) arterial 99(H) 90 - 95 % [facility] Total CO2, Art POC 23 21 - 30 mmol/L [facility] BE, art, POC -4 mmol/L [facility] HCO3, Art POC 22 20 - 30 mmol/L [facility] Hct, POC 21.0(L) 38.9 - 50.3 % [facility] Total Hb, POC 6.9(L) 13.0 - 17.5 g/dL [facility] Blood 05/04/2021 6:53 PM STAFF FORESTER 05/04/2021 6:53 PM STAFF FORESTER us Nalini Clayton MD LAB POCT ORDERABLES - DEVICE Fin al Result [facility] [address] [place] [address] * Transfuse platelets (05/04/2021 6:48 PM STAFF FORESTER) Blood specimen (specimen) Can Jones MD BLOOD TRANSFUSION ORD ERABLES Final Result [facility] [address] [place] [address] * Transfuse plasma (05/04/2021 6:41 PM STAFF FORESTER) Blood specimen (specimen) Can Jones MD BLOOD TRANSFUSION ORD ERABLES Final Result [facility] [place] [address] [place] [address] * (ABNORMAL) POC Blood Gas and Chemistries, Arterial - (05/04/2021 6:12 PM STAFF FORESTER) pH, Art POC 7.36 7.35 - 7.45 [facility] pCO2, Art POC 42 35 - 45 mmHg [facility] pO2, Art POC 228(H) 83 - 108 mmHg [facility] Na, POC 134(L) 135 - 145 mmol/L [facility] K POC 5.3(H) 3.3 - 4.9 mmol/L [facility] Comment: Interpretive Data Unable to assess hemolysis. ??Invitro hemolysis causes falsely elevated potassium. Current Interpretive Data was last revised on 2020. Ionized Ca, POC 4.20(L) 4.60 - 5.20 mg/dL [facility] Glucose, POC 208(H) 70 - 199 mg/dL [facility] Lactate, POC 1.4 0.7 - 2.0 mmol/L [facility] SO2 (joelle) arterial 98(H) 90 - 95 % [facility] Total CO2, Art POC 25 21 - 30 mmol/L [facility] BE, art, POC -2 mmol/L [facility] HCO3, Art POC 24 20 - 30 mmol/L [facility] Hct, POC 25.0(L) 38.9 - 50.3 % [facility] Total Hb, POC 8.2(L) 13.0 - 17.5 g/dL [facility] Blood 05/04/2021 6:12 PM STAFF FORESTER 05/04/2021 6:12 PM STAFF FORESTER us Nalini Clayton MD LAB POCT ORDERABLES - DEVICE Fin al Result Performing Organization Address City/[facility]/ZIP Co de Phone Number [facility] [address] [facility] [place] [address] * Platelet count (05/04/2021 5:53 PM STAFF FORESTER) Plt 230 150 - 400 K/cumm [facility] Blood 05/04/2021 5:53 PM STAFF FORESTER 05/04/2021 6:00 PM STAFF FORESTER Rhina Granados MD LAB BLOOD ORDERABLES Final R esult Performing Organization Address [facility] de Phone Number [facility] DON [address] [place] [address] * (ABNORMAL) POC Blood Gas and Chemistries, Arterial - (05/04/2021 5:43 PM STAFF FORESTER) pH, Art POC 7.37 7.35 - 7.45 [facility] pCO2, Art POC 36 35 - 45 mmHg [facility] pO2, Art POC 215(H) 83 - 108 mmHg [facility] Na, POC 133(L) 135 - 145 mmol/L [facility] K POC 4.3 3.3 - 4.9 mmol/L [facility] Comment: Interpretive Data Unable to assess hemolysis. ??Invitro hemolysis causes falsely elevated potassium. Current Interpretive Data was last revised on 2020. Ionized Ca, POC 4.16(L) 4.60 - 5.20 mg/dL [facility] Glucose, POC 199 70 - 199 mg/dL [facility] Lactate, POC 0.7 0.7 - 2.0 mmol/L [facility] SO2 (joelle) arterial 100(H) 90 - 95 % [facility] Total CO2, Art POC 22 21 - 30 mmol/L [facility] BE, art, POC -4 mmol/L [facility] HCO3, Art POC 22 20 - 30 mmol/L [facility] Hct, POC 21.0(L) 38.9 - 50.3 % [facility] Total Hb, POC 6.9(L) 13.0 - 17.5 g/dL [facility] Blood 05/04/2021 5:43 PM STAFF FORESTER 05/04/2021 5:43 PM STAFF FORESTER us Nalini Clayton MD LAB POCT ORDERABLES - DEVICE Fin al Result Performing Organization Address [facility] Co de Phone Number [facility] [address] [place] [address] * Prepare RBC: 4 Units (05/04/2021 5:43 PM STAFF FORESTER) Pathologist [facility] Product code [id number] CERNER CH Unit Number [id number] 9-5 CERNER CH Product Blood Type APOS CERNER CH Dispense Status RETURNED CERNER CH Product code [id number] CERNER CH Unit Number [id number] 9-C CERNER CH Product Blood Type APOS CERNER CH Dispense Status RETURNED CERNER CH Product code [id number] CERNER CH Unit Number [id number] 6-Y CERNER CH Product Blood Type APOS CERNER CH Dispense Status RETURNED CERNER CH Product code [id number] CERNER CH Unit Number [id number] 3-* CERNER CH Product Blood Type APOS CERNER CH Dispense Status RETURNED CERNER CH Blood 05/04/2021 5:43 PM STAFF FORESTER Narrative CERNER CH - 05/06/2021 12:13 AM STAFF FORESTER Are special requirements needed? (all products are leukoreduced)->No Date required:-20210504 LRRBC # of [id number] Reasons:-Intra-op transfusion} us Rhina Granados MD BLOOD BANK PRODUCT ORDERABLE S Final Result Performing Organization Address [facility]/ZIP Co de Phone Number [facility] [address] [facility] [place] [address] * Transfuse RBC (05/04/2021 5:23 PM STAFF FORESTER) Blood specimen (specimen) us Can Jones MD BLOOD TRANSFUSION ORD ERABLES Final Result [facility] [address] [place] [address] * (ABNORMAL) POC Blood Gas and Chemistries, Arterial - (05/04/2021 5:05 PM STAFF FORESTER) pH, Art POC 7.34(L) 7.35 - 7.45 CERNER CH pCO2, Art POC 39 35 - 45 mmHg CERNER CH pO2, Art POC 214(H) 83 - 108 mmHg CERNER CH Na, POC 132(L) 135 - 145 mmol/L CERNER CH K POC 4.2 3.3 - 4.9 mmol/L CERNER CH Comment: Interpretive Data Unable to assess hemolysis. ??Invitro hemolysis causes falsely elevated potassium. Current Interpretive Data was last revised on 2020. Ionized Ca, POC 4.31(L) 4.60 - 5.20 mg/dL CERNER CH Glucose, POC 217(H) 70 - 199 mg/dL CERNER CH Lactate, POC 0.8 0.7 - 2.0 mmol/L CERNER CH SO2 (joelle) arterial 100(H) 90 - 95 % CERNER CH Total CO2, Art POC 22 21 - 30 mmol/L CERNER CH BE, art, POC -4 mmol/L CERNER CH HCO3, Art POC 22 20 - 30 mmol/L CERNER CH Hct, POC 22.0(L) 38.9 - 50.3 % CERNER CH Total Hb, POC 7.2(L) 13.0 - 17.5 g/dL CERNER CH Blood 05/04/2021 5:05 PM STAFF FORESTER 05/04/2021 5:05 PM STAFF FORESTER Nalini Clayton MD LAB POCT ORDERABLES - DEVICE Fin al Result [facility] [address] [place] [address] * Transfuse RBC (05/04/2021 4:27 PM STAFF FORESTER) Blood specimen (specimen) us Can Jones MD BLOOD TRANSFUSION ORD ERABLES Final Result [facility] [address] [place] [address] * (ABNORMAL) POC Blood Gas and Chemistries, Arterial - (05/04/2021 4:14 PM STAFF FORESTER) pH, Art POC 7.33(L) 7.35 - 7.45 CERNER CH pCO2, Art POC 40 35 - 45 mmHg CERNER CH pO2, Art POC 218(H) 83 - 108 mmHg CERNER CH Na, POC 130(L) 135 - 145 mmol/L CERNER CH K POC 4.3 3.3 - 4.9 mmol/L CERNER CH Comment: Interpretive Data Unable to assess hemolysis. ??Invitro hemolysis causes falsely elevated potassium. Current Interpretive Data was last revised on 2020. Ionized Ca, POC 4.30(L) 4.60 - 5.20 mg/dL CERNER CH Glucose, POC 204(H) 70 - 199 mg/dL CERNER CH Lactate, POC 0.6(L) 0.7 - 2.0 mmol/L CERNER CH SO2 (joelle) arterial 99(H) 90 - 95 % CERNER CH Total CO2, Art POC 22 21 - 30 mmol/L CERNER CH BE, art, POC -4 mmol/L CERNER CH HCO3, Art POC 22 20 - 30 mmol/L CERNER CH Hct, POC 20.0(L) 38.9 - 50.3 % CERNER CH Total Hb, POC 6.5(L) 13.0 - 17.5 g/dL CERNER CH Blood 05/04/2021 4:14 PM STAFF FORESTER 05/04/2021 4:14 PM STAFF FORESTER us Nalini Clayton MD LAB POCT ORDERABLES - DEVICE Fin al Result [facility] [address] Department of Laboratories [place], [place] [id number] * (ABNORMAL) POC Blood Gas and Chemistries, Arterial - (05/04/2021 3:30 PM STAFF FORESTER) pH, Art POC 7.29(L) 7.35 - 7.45 CERNER CH pCO2, Art POC 45 35 - 45 mmHg CERNER CH pO2, Art POC 164(H) 83 - 108 mmHg CERNER CH Na, POC 132(L) 135 - 145 mmol/L CERNER CH K POC 3.7 3.3 - 4.9 mmol/L CERNER CH Comment: Interpretive Data Unable to assess hemolysis. ??Invitro hemolysis causes falsely elevated potassium. Current Interpretive Data was last revised on 2020. Ionized Ca, POC 4.68 4.60 - 5.20 mg/dL CERNER CH Glucose, POC 210(H) 70 - 199 mg/dL CERNER CH Lactate, POC 0.5(L) 0.7 - 2.0 mmol/L CERNER CH SO2 (joelle) arterial 99(H) 90 - 95 % CERNER CH Total CO2, Art POC 23 21 - 30 mmol/L CERNER CH BE, art, POC -5 mmol/L CERNER CH HCO3, Art POC 21 20 - 30 mmol/L CERNER CH Hct, POC 26.0(L) 38.9 - 50.3 % CERNER CH Total Hb, POC 8.5(L) 13.0 - 17.5 g/dL CERNER CH Blood 05/04/2021 3:30 PM STAFF FORESTER 05/04/2021 3:30 PM STAFF FORESTER Nalini Clayton MD LAB POCT ORDERABLES - [place] [address] [address] Department [place] [address] * Prepare plasma: 2 Units (05/04/2021 3:25 PM STAFF FORESTER) Product code [id number] CERNER CH Unit Number [id number] CERNER CH Product Blood Type APOS CERNER CH Dispense Status PRESUMED TRANSFUSED CERNER CH Product code [id number] CERNER CH Unit Number [id number] CERNER CH Product Blood Type APOS CERNER CH Dispense Status PRESUMED TRANSFUSED CERNER CH Blood (Blood, Venous) 05/04/2021 3:25 PM STAFF FORESTER Narrative CERNER CH - 05/04/2021 10:15 PM STAFF FORESTER Please have at least two thawed for end of case. ??Thank you! Specify Procedure:->CABG Date required:-20210504 FFP # of Units:-2-Units Reasons:-Hold for procedure (specify procedure)} us Rhina Granados MD BLOOD BANK PRODUCT [place] [address] [place] [address] * (ABNORMAL) POC Blood Gas and Chemistries, Arterial - (05/04/2021 2:21 PM STAFF FORESTER) pH, Art POC 7.30(L) 7.35 - 7.45 CERNER CH pCO2, Art POC 43 35 - 45 mmHg CERNER CH pO2, Art POC 238(H) 83 - 108 mmHg CERNER CH Na, POC 133(L) 135 - 145 mmol/L CERNER CH K POC 3.7 3.3 - 4.9 mmol/L CERNER CH Comment: Interpretive Data Unable to assess hemolysis. ??Invitro hemolysis causes falsely elevated potassium. Current Interpretive Data was last revised on 2020. Ionized Ca, POC 4.58(L) 4.60 - 5.20 mg/dL CERNER CH Glucose, POC 145 70 - 199 mg/dL CERNER CH Lactate, POC 0.7 0.7 - 2.0 mmol/L CERNER CH SO2 (joelle) arterial 98(H) 90 - 95 % CERNER CH Total CO2, Art POC 22 21 - 30 mmol/L CERNER CH BE, art, POC -5 mmol/L CERNER CH HCO3, Art POC 21 20 - 30 mmol/L CERNER CH Hct, POC 25.0(L) 38.9 - 50.3 % CERNER CH Total Hb, POC 8.3(L) 13.0 - 17.5 g/dL [facility]ERNER CH Blood 05/04/2021 2:21 PM STAFF FORESTER 05/04/2021 2:21 PM STAFF FORESTER us Nalini Clayton MD LAB POCT ORDERABLES - DEVICE Fin al Result Performing Organization Address [facility] Co de Phone Number [facility] DON [address] [place] [address] * POCT glucose (05/04/2021 11:54 AM STAFF FORESTER) Glucose, POC 171 70 - 199 mg/dL [facility] Blood 05/04/2021 11:5 4 AM STAFF FORESTER 05/04/2021 11:54 AM STAFF FORESTER Nalini Clayton MD LAB POCT ORDERABLES - DEVICE Fin al Result Performing Organization Address [facility] de Phone Number [facility] DON [address] [place] [address] * Critical Care (05/04/2021 10:31 AM STAFF FORESTER) Narrative Frank Dugan MD - 05/04/2021 10:31 AM STAFF FORESTER Frank Dugan MD ? 05/04/2021 10:35 AM Critical Care Performed by: Frank Dugan MD Authorized by: Frank Dugan MD CRITICAL CARE: ??Team: ??CHNE ??Shift: ??AM ??Level of Billing: ??Critical Care ??My time spent with this patient was 35 minutes: Critical Provider Statement: I have seen and examined the patient on this day of service. I have reviewed and confirmed the history, physical exam, laboratory and radiologic data as documented in the signed ICU note. I have reviewed and discussed my treatment plan with the ICU team and other medical/environmental remediation consultant staff, making frequent assessments and decisions regarding this patient's complex medical care. Critical Care time was exclusive of time spent performing separately billed procedures, treating other patients, and teaching. This time was in addition to and separate from critical care provided by other practitioners in my group on this day of service. Critical Care was necessary to treat or prevent imminent or life-threatening deterioration of the following conditions: ? Acute pain/acute postoperative pain ?? ST-Elevation myocardial infarction (STEMI) ?? IABP in place COPD Hematuria ?? Acute kidney injury and Hypo- or Hyperglycemia ?? Acute blood loss anemia ?? Leukocytosis ??This time was spent by me doing the following: ? Acute pain control ?? Active and frequent reassessment of respiratory status and oxygen requirements, Incentive spirometry, pulmonary toilet and Frequent bronchodilator treatments ?? Glycemic control and Active and frequent monitoring of intake/output and volumen status ?? Active repletion of electrolytes and Active diuresis ?? Obtaining appropriate cultures and Review of prior or current culture/gram stain results ?? I spent time documenting in the medical record, I spent time discussing the management of this critically ill patient with consultants and the medical staff and I spent time reviewing and interpreting data from bedside monitors, laboratory results, and imaging us Frank Dugan MD IN CLINIC/BEDSIDE ORDERABLES Final Result * (ABNORMAL) Urinalysis, microscopic only (05/04/2021 10:13 AM STAFF FORESTER) WBC, ur 11-20(A) 0 - 5 /HPF CERNER CH RBC, ur >50(A) 0 - 2 /HPF CERNER CH Urine 05/04/2021 10:1 3 AM STAFF FORESTER 05/04/2021 10:17 AM STAFF FORESTER Rhina Granados MD LAB URINE ORDERABLES Final R esult [facility] [address] [place] [address] * (ABNORMAL) Urinalysis reflex to microscopic (05/04/2021 10:13 AM STAFF FORESTER) Color, ur Red(A) Yellow CERNER CH Clarity, ur Cloudy(A) Clear CERNER CH Specific gravity, ur 1.015 1.003 - 1.030 CERNER CH pH, urine 7.0 CERNER CH Protein, ur ql 3+(A) Negative CERNER CH Glucose, ur ql 3+(A) Negative CERNER CH Ketones, ur Trace Negative CERNER CH Bilirubin, ur Negative Negative [facility]ER CH Blood, ur 3+(A) Negative [facility] Urobilinogen, ur <2.0 <2.0 mg/dL [facility] Nitrite, ur Negative Negative [facility] Leukocyte esterase, ur Negative Negative [facility] UA reflex comment Reflex to microscopic UA will be performed. [facility] Urine 05/04/2021 10:1 3 AM STAFF FORESTER 05/04/2021 10:17 AM STAFF FORESTER Narrative [facility] - 05/04/2021 10:46 AM STAFF FORESTER ?? Urine pH is affected by diet, medications, systemic acid-base disturbances, and renal tubular function. ??pH may affect urinary stone formation. ??For example, urine pH below 6.0 may help reduce the tendency for calcium phosphate stones and pH greater than 6.0 may reduce the tendency for uric acid stone formation. Source: [facility] [place]. Last revised 06-30-2017 Rhina Granados MD LAB URINE ORDERABLES Final R esult Performing Organization Address City/[facility]/ZIP Co de Phone Number [facility]K [address] [place] [address] * (ABNORMAL) POCT glucose (05/04/2021 9:45 AM STAFF FORESTER) Glucose, POC 214(H) 70 - 199 mg/dL [facility] Blood 05/04/2021 9:45 AM STAFF FORESTER 05/04/2021 9:45 AM STAFF FORESTER Nalini Clayton MD LAB POCT ORDERABLES - DEVICE Fin al Result Performing Organization Address [facility] Co de Phone Number [facility] DON [address] [place] [address] * XR Chest 1 Vw Portable (05/04/2021 9:16 AM STAFF FORESTER) Anatomical Region Laterality Modality Body, Chest N/A Computed Radiogr aphy 05/04/2021 9:27 AM STAFF FORESTER Impressions 05/04/2021 9:27 AM STAFF FORESTER Stable appearance. COPD cardiomegaly, with mild failure suspected. Electronically signed by: Deacon Cummings M.D. Narrative 05/04/2021 9:27 AM STAFF FORESTER EXAMINATION: XR CHEST 1 VIEW DATE: 05/04/2021 9:05 AM HISTORY: Coronary artery disease FINDINGS:Comparison is made with study of 2 days earlier. Cardiomegaly, COPD with interstitial lung disease stable. Mild failure. Aortic balloon pump stable in position at the proximal descending aorta. No pneumothorax. No new infiltrates. Procedure Note Deacon Cummings MD - 05/04/2021 EXAMINATION: XR CHEST 1 VIEW DATE: 05/04/2021 9:05 AM HISTORY: Coronary artery disease FINDINGS:Comparison is made with study of 2 days earlier. Cardiomegaly, COPD with interstitial lung disease stable. Mild failure. Aortic balloon pump stable in position at the proximal descending aorta. No pneumothorax. No new infiltrates. IMPRESSION: Stable appearance. COPD cardiomegaly, with mild failure suspected. Electronically signed by: Deacon Cummings M.D. Rhina Granados MD IMG XR PROCEDURES Final Resu lt * (ABNORMAL) POCT glucose (05/04/2021 8:03 AM STAFF FORESTER) Glucose, POC 265(H) 70 - 199 mg/dL [facility] Blood 05/04/2021 8:03 AM STAFF FORESTER 05/04/2021 8:03 AM STAFF FORESTER Nalini Clayton MD LAB POCT ORDERABLES - DEVICE Fin al Result [facility] [address] [place] [address] * (ABNORMAL) CBC without differential (05/04/2021 2:52 AM STAFF FORESTER) WBC 16.7(H) 3.8 - 9.9 K/cumm CERNER Hgb 10.2(L) 13.0 - 17.5 g/dL CERNER Hct 29.6(L) 38.9 - 50.3 % CERNER Plt 332 150 - 400 K/cumm [facility] MPV 12.0 9.1 - 12.3 fL [facility] RBC 3.25(L) 4.30 - 5.80 M/cumm [facility] MCV 91.1 81.3 - 96.4 fL [facility] MCH 31.4 27.1 - 33.3 pg [facility] MCHC 34.5 32.3 - 35.7 g/dL [facility] RDW CV 14.3 11.1 - 14.9 % [facility] RDW SD 47.9 35.7 - 48.1 fL [facility] NRBC abs 0.00 0.00 - 0.01 K/cumm [facility] Blood 05/04/2021 2:52 AM STAFF FORESTER 05/04/2021 2:52 AM STAFF FORESTER Narrative [facility] - 05/04/2021 2:56 AM STAFF FORESTER Until heparin is discontinued. us Nalini Clayton MD LAB BLOOD ORDERABLES Final Resul t [facility] [address] [place] [address] * eGFR (05/04/2021 2:47 AM STAFF FORESTER) eGFR 112 mL/min/1.7 3 m2 [facility] Comment: Interpretive Data Reference Interval Normal ?>/= 90 mL/min/1.73m2 Mildly decreased* ? 60 - 89 mL/min/1.73m2 Mildly to moderately decreased ?45 - 59 mL/min/1.73m2 Moderately to severely decreased ??30 - 44 mL/min/1.73m2 Severely decreased ?15 - 29 mL/min/1.73m2 Kidney Failure ?< 15 ??mL/min/1.73m2 *Relative to young adult level Estimated glomerular filtration rate is determined by the CKD-EPI equation recommended by the National Kidney Foundation (KDIGO 2012 Clinical Practice Guideline for the Evaluation and Management of Chronic Kidney Disease. Kidney Intnl Suppl Jun 2012;3:1). The CKD-EPI equation should not be used for patients with unstable renal function and has not been validated in children and those over 70. Current interpretive data was last reviewed 2020 Blood 05/04/2021 2:47 AM STAFF FORESTER 05/04/2021 2:52 AM STAFF FORESTER Wally Aguilar DO LAB BLOOD ORDERABLES Fi nal Result Performing Organization Address [facility] de Phone Number [facility] [address] [place], [place] [id number] * Protime-INR (05/04/2021 2:47 AM STAFF FORESTER) PT 13.4 9.5 - 13.6 sec [facility] INR 1.2 0.9 - 1.2 [facility] Comment: Interpretive data Oral anticoagulant therapeutic ranges: Venous thromboembolism prophylaxis or treatment: 2.0-3.0 CARDIOLOGY Standard range: 2.0-3.0 High-intensity range: 2.5-3.5 Refer to indication-specific guidelines for appropriate target ranges for prosthetic heart valve replacement. Current interpretive data was last revised on 2019. Blood 05/04/2021 2:47 AM STAFF FORESTER 05/04/2021 2:52 AM STAFF FORESTER Rhina Granados MD LAB BLOOD ORDERABLES Final R esult Performing Organization Address [facility] de Phone Number [facility] [address] [place] [address] * (ABNORMAL) aPTT (05/04/2021 2:47 AM STAFF FORESTER) aPTT 57(H) 27 - 37 sec [facility] Comment: Interpretive Data Therapeutic heparin range: 60.0 - 94.0 seconds. Based on correlation with therapeutic heparin activity range of 0.3-0.7 Units/mL. Current interpretive data was last revised on 2020. Blood 05/04/2021 2:47 AM STAFF FORESTER 05/04/2021 2:52 AM STAFF FORESTER us Rhina Granados MD LAB BLOOD ORDERABLES Final R esult [facility] [address] [place] [address] * (ABNORMAL) Comprehensive metabolic panel (05/04/2021 2:47 AM STAFF FORESTER) Sodium 131(L) 135 - 145 mmol/L [facility] Potassium, pl 4.0 3.3 - 4.9 mmol/L [facility] Chloride 100 97 - 110 mmol/L [facility] CO2 20(L) 22 - 32 mmol/L [facility] Anion gap 11 2 - 15 mmol/L [facility] BUN 7(L) 8 - 25 mg/dL [facility] Creatinine 0.58(L) 0.80 - 1.30 mg/dL [facility] Glucose 231(H) 70 - 199 mg/dL [facility] Comment: Interpretive Data Fasting glucose >/= 126 [...] interpretive data was last revised 2017. Calcium 8.5 8.5 - 10.3 mg/dL [facility] CH Bilirubin, total 0.4 0.1 - 1.2 mg/dL [facility] Protein, pl 5.8(L) 6.5 - 8.5 g/dL [facility] Albumin 3.1(L) 3.5 - 5.0 g/dL [facility] Alk phos 69 40 - 130 Units/L [facility] ALT 18 7 - 55 Units/L [facility] AST 50 10 - 50 Units/L [facility] Blood 05/04/2021 2:47 AM STAFF FORESTER 05/04/2021 2:52 AM STAFF FORESTER Wally Olmedosch DO LAB BLOOD ORDERABLES Fi nal Result Performing Organization Address [facility] Co de Phone Number [facility]K [address] [facility] [place] [address] * Magnesium (05/04/2021 2:47 AM STAFF FORESTER) Magnesium 1.6 1.4 - 2.5 mg/dL [facility] Blood 05/04/2021 2:47 AM STAFF FORESTER 05/04/2021 2:52 AM STAFF FORESTER Silviano Huddleston ESCROW CLERK LAB BLOOD ORDERABLES Final Result Performing Organization Address [facility] de Phone Number [facility] [address] [place] [address] * Phosphorus (05/04/2021 2:47 AM STAFF FORESTER) Phosphorus, pl 2.6 2.3 - 4.5 mg/dL [facility] Blood 05/04/2021 2:47 AM STAFF FORESTER 05/04/2021 2:52 AM STAFF FORESTER Silviano Huddleston ESCROW CLERK LAB BLOOD ORDERABLES Final Result Performing Organization Address [facility] de Phone Number [facility] [address] [place] [address] * (ABNORMAL) POCT glucose (05/04/2021 2:38 AM STAFF FORESTER) Glucose, POC 218(H) 70 - 199 mg/dL [facility] Blood 05/04/2021 2:38 AM STAFF FORESTER 05/04/2021 2:38 AM STAFF FORESTER Nalini Clayton MD LAB POCT ORDERABLES - DEVICE Fin al Result Performing Organization Address [facility] Co de Phone Number [facility] [address] [place] [address] * POCT glucose (05/03/2021 7:59 PM STAFF FORESTER) Glucose, POC 161 70 - 199 mg/dL [facility] Blood 05/03/2021 7:59 PM STAFF FORESTER 05/03/2021 7:59 PM STAFF FORESTER us Nalini Clayton MD LAB POCT ORDERABLES - DEVICE Fin al Result [facility] [address] [place] [address] * Critical Care (05/03/2021 7:56 PM STAFF FORESTER) Narrative Wally Aguilar, - 05/03/2021 7:56 PM STAFF FORESTER Wally Aguilar, DO ? 05/04/2021 12:13 AM Critical Care Performed by: Wally Aguilar DO Authorized by: Wally Aguilar DO CRITICAL CARE: ??Team: ??CHNE ??Shift: ??PM ??Level of Billing: ??Critical Care ??My time spent with this patient was 35 minutes: Critical Provider Statement: I have seen and examined the patient on this day of service. I have reviewed and confirmed the history, physical exam, laboratory and radiologic data as documented in the signed ICU note. I have reviewed and discussed my treatment plan with the ICU team and other medical/environmental remediation consultant staff, making frequent assessments and decisions regarding this patient's complex medical care. Critical Care time was exclusive of time spent performing separately billed procedures, treating other patients, and teaching. This time was in addition to and separate from critical care provided by other practitioners in my group on this day of service. Critical Care was necessary to treat or prevent imminent or life-threatening deterioration of the following conditions: ? Acute pain/acute postoperative pain ?? Cardiogenic shock and ST-Elevation myocardial infarction (STEMI) ?? Atelectasis ??This time was spent by me doing the following: ? Serial bedside patient exams ?? Acute pain control ?? Serial neurovascular exams ?? IABP management ?? Active and frequent reassessment of respiratory status and oxygen requirements and Incentive spirometry, pulmonary toilet ?? Active and frequent monitoring of intake/output and volumen status ?? Initiation/management of anti-platelet agents and Initiation/monitoring/titration of anticoagulants ?? I spent time reviewing and interpreting data from bedside monitors, laboratory results, and imaging, I spent time discussing the management of this critically ill patient with consultants and the medical staff and I spent time documenting in the medical record Wally Aguilar DO IN CLINIC/BEDSIDE ORDER ERJI Final Result * POCT glucose (05/03/2021 4:46 PM STAFF FORESTER) Glucose, POC 177 70 - 199 mg/dL [facility] Blood 05/03/2021 4:46 PM STAFF FORESTER 05/03/2021 4:46 PM STAFF FORESTER Nalini Clayton MD LAB POCT ORDERABLES - DEVICE Fin al Result Performing Organization Address [facility]/ZIP Co de Phone Number [facility] [address] [facility] [place] [address] * POCT glucose (05/03/2021 11:20 AM STAFF FORESTER) Glucose, POC 108 70 - 199 mg/dL [facility] Blood 05/03/2021 11:2 0 AM STAFF FORESTER 05/03/2021 11:20 AM STAFF FORESTER Nalini Clayton MD LAB POCT ORDERABLES - DEVICE Fin al Result Performing Organization Address [facility] Co de Phone Number [facility] [address] [place] [address] * Prepare platelets: 2 Units (05/03/2021 9:26 AM STAFF FORESTER) Product code [id number] [facility] Unit Number [id number] [facility] Product Blood Type APOS [facility] CH Dispense Status PRESUMED TRANSFUSED [facility] CH Product code [id number] [facility] CH Unit Number [id number] [facility] CH Product Blood Type ANEG [facility] CH Dispense Status PRESUMED TRANSFUSED [facility] CH Blood (Blood, Venous) 05/03/2021 9:26 AM STAFF FORESTER Narrative [facility] - 05/05/2021 10:15 AM STAFF FORESTER Are special requirements needed? (all products are leukoreduced)->No Date required:-20210504 PLT # of Units:-2-Units Reasons:-Bleeding/pre-op with antiplatelet agent} Ainsley Rashid MD BLOOD BANK PRODUCT ORDER REJI Final Result Performing Organization Address [facility] Co de Phone Number [facility] [address] [place] [address] * Prepare RBC: 4 Units (05/03/2021 9:26 AM STAFF FORESTER) Pathologist [facility] Product code [id number] [facility] CH Unit Number [id number] [facility] CH Product Blood Type APOS [facility] CH Dispense Status PRESUMED TRANSFUSED [facility] CH Product code N0214V35 CERNER CH Unit Number [id number] [facility] Product Blood Type APOS CERNER CH Dispense Status PRESUMED TRANSFUSED [facility]ER CH Product code [id number] CERNER CH Unit Number [id number] [facility] CH Product Blood Type APOS CERNER CH Dispense Status PRESUMED TRANSFUSED [facility] CH Product code [id number] CERNER CH Unit Number [id number] [facility]ER CH Product Blood Type APOS CERNER CH Dispense Status PRESUMED TRANSFUSED [facility] Blood 05/03/2021 9:26 AM STAFF FORESTER Narrative [facility] - 05/05/2021 10:15 AM STAFF FORESTER Specify Procedure:->cabg Are special requirements needed? (all products are leukoreduced)->No Date required:-20210504 LRRBC # of [id number] Reasons:-Hold for procedure (specify procedure)} Ainsley Rashid MD BLOOD BANK PRODUCT ORDER REJI Final Result Performing Organization Address [facility] de Phone Number [facility] [address] [place] [address] * Critical Care (05/03/2021 9:14 AM STAFF FORESTER) Narrative Frank Dugan MD - 05/03/2021 9:14 AM STAFF FORESTER Frank Dugan MD ? 05/03/2021 ??9:24 AM Critical Care Performed by: Frank Dugan MD Authorized by: Frank Dugan MD CRITICAL CARE: ??Team: ??CHNE ??Shift: ??AM ??Level of Billing: ??Critical Care ??My time spent with this patient was 45 minutes: Critical Provider Statement: I have seen and examined the patient on this day of service. I have reviewed and confirmed the history, physical exam, laboratory and radiologic data as documented in the signed ICU note. I have reviewed and discussed my treatment plan with the ICU team and other medical/environmental remediation consultant staff, making frequent assessments and decisions regarding this patient's complex medical care. Critical Care time was exclusive of time spent performing separately billed procedures, treating other patients, and teaching. This time was in addition to and separate from critical care provided by other practitioners in my group on this day of service. Critical Care was necessary to treat or prevent imminent or life-threatening deterioration of the following conditions: ? Acute pain/acute postoperative pain ?? ST-Elevation myocardial infarction (STEMI) ?? STEMI with IABP in place Poorly controlled DM ?? Hypo- or Hyperglycemia ?? Acute blood loss anemia ?? Leukocytosis ??This time was spent by me doing the following: ? Acute pain control ?? Serial neurovascular exams ?? Frequent bronchodilator treatments, Incentive spirometry, pulmonary toilet and Active and frequent reassessment of respiratory status and oxygen requirements ?? Active and frequent monitoring of intake/output and volumen status and Glycemic control ?? Transfusion of blood products and Initiation/monitoring/titration of anticoagulants ?? Obtaining appropriate cultures and Review of prior or current culture/gram stain results ?? I spent time documenting in the medical record, I spent time discussing the management of this critically ill patient with consultants and the medical staff and I spent time reviewing and interpreting data from bedside monitors, laboratory results, and imaging Frank Dugan MD IN CLINIC/BEDSIDE ORDERABLES Final Result * POCT glucose (05/03/2021 7:36 AM STAFF FORESTER) [facility] Signature Glucose, POC 104 70 - 199 mg/dL [facility] Blood 05/03/2021 7:36 AM STAFF FORESTER 05/03/2021 7:36 AM STAFF FORESTER us Nalini Clayton MD LAB POCT ORDERABLES - DEVICE Fin al Result Performing Organization Address City/[facility]/ZIP Co de Phone Number [facility] [address] [place] [address] * eGFR (05/03/2021 4:19 AM STAFF FORESTER) Pathologist [facility] eGFR 118 mL/min/1.7 3 m2 [facility] Comment: Interpretive Data Reference Interval Normal ?>/= 90 mL/min/1.73m2 Mildly decreased* ? 60 - 89 mL/min/1.73m2 Mildly to moderately decreased ?45 - 59 mL/min/1.73m2 Moderately to severely decreased ??30 - 44 mL/min/1.73m2 Severely decreased ?15 - 29 mL/min/1.73m2 Kidney Failure ?< 15 ??mL/min/1.73m2 *Relative to young adult level Estimated glomerular filtration rate is determined by the CKD-EPI equation recommended by the National Kidney Foundation (KDIGO 2012 Clinical Practice Guideline for the Evaluation and Management of Chronic Kidney Disease. Kidney Intnl Suppl Jun 2012;3:1). The CKD-EPI equation should not be used for patients with unstable renal function and has not been validated in children and those over 70. Current interpretive data was last reviewed 2020 Blood 05/03/2021 4:19 AM STAFF FORESTER 05/03/2021 4:36 AM STAFF FORESTER us Wally Aguilar DO LAB BLOOD ORDERABLES Fi nal Result Performing Organization Address City/[facility]/ZIP Co de Phone Number [facility] [address] [place] [address] * (ABNORMAL) CBC without differential (05/03/2021 4:19 AM STAFF FORESTER) WBC 16.4(H) 3.8 - 9.9 K/cumm [facility] Hgb 10.7(L) 13.0 - 17.5 g/dL [facility] Hct 31.0(L) 38.9 - 50.3 % [facility] Plt 321 150 - 400 K/cumm [facility] MPV 11.7 9.1 - 12.3 fL [facility] RBC 3.41(L) 4.30 - 5.80 M/cumm [facility] MCV 90.9 81.3 - 96.4 fL [facility] MCH 31.4 27.1 - 33.3 pg [facility] MCHC 34.5 32.3 - 35.7 g/dL [facility] RDW CV 14.6 11.1 - 14.9 % [facility] RDW SD 48.8(H) 35.7 - 48.1 fL [facility] NRBC abs 0.00 0.00 - 0.01 K/cumm [facility] Blood 05/03/2021 4:19 AM STAFF FORESTER 05/03/2021 4:36 AM STAFF FORESTER Narrative [facility] - 05/03/2021 4:42 AM STAFF FORESTER Until heparin is discontinued. us Nalini Clayton MD LAB BLOOD ORDERABLES Final Resul t [facility] [address] [place] [address] * (ABNORMAL) Comprehensive metabolic panel (05/03/2021 4:19 AM STAFF FORESTER) Sodium 136 135 - 145 mmol/L [facility] Potassium, pl 4.0 3.3 - 4.9 mmol/L [facility] Chloride 105 97 - 110 mmol/L [facility] CO2 19(L) 22 - 32 mmol/L [facility] Anion gap 12 2 - 15 mmol/L [facility] BUN 6(L) 8 - 25 mg/dL [facility] Creatinine 0.51(L) 0.80 - 1.30 mg/dL [facility] Glucose 115 70 - 199 mg/dL [facility] Comment: Interpretive Data Fasting glucose >/= 126 [...] interpretive data was last revised 2017. Calcium 8.6 8.5 - 10.3 mg/dL [facility] Bilirubin, total 0.4 0.1 - 1.2 mg/dL [facility] Protein, pl 5.8(L) 6.5 - 8.5 g/dL [facility] Albumin 3.2(L) 3.5 - 5.0 g/dL [facility] Alk phos 70 40 - 130 Units/L [facility] ALT 23 7 - 55 Units/L [facility] AST 98(H) 10 - 50 Units/L [facility] Blood 05/03/2021 4:19 AM STAFF FORESTER 05/03/2021 4:36 AM STAFF FORESTER Wally Aguilar DO LAB BLOOD ORDERABLES Fi nal Result Performing Organization Address City/[facility]/ZIP Co de Phone Number [facility] [address] [place] [address] * Magnesium (05/03/2021 4:19 AM STAFF FORESTER) Magnesium 1.7 1.4 - 2.5 mg/dL [facility] Blood 05/03/2021 4:19 AM STAFF FORESTER 05/03/2021 4:36 AM STAFF FORESTER Silviano Huddleston ESCROW CLERK LAB BLOOD ORDERABLES Final Result [facility] [address] [place] [address] * Phosphorus (05/03/2021 4:19 AM STAFF FORESTER) Phosphorus, pl 3.1 2.3 - 4.5 mg/dL [facility] Blood 05/03/2021 4:19 AM STAFF FORESTER 05/03/2021 4:36 AM STAFF FORESTER Silviano Huddleston NP LAB BLOOD ORDERABLES Final Result Performing Organization Address [facility] de Phone Number [facility] [address] [facility] [place] [address] * (ABNORMAL) aPTT (05/03/2021 4:19 AM STAFF FORESTER) Pathologist [facility] aPTT 64(H) 27 - 37 sec [facility] Comment: Interpretive Data Therapeutic heparin range: 60.0 - 94.0 seconds. Based on correlation with therapeutic heparin activity range of 0.3-0.7 Units/mL. Current interpretive data was last revised on 2020. Blood 05/03/2021 4:19 AM STAFF FORESTER 05/03/2021 4:36 AM STAFF FORESTER Ainsley Rashid MD LAB BLOOD ORDERABLES Fin al Result Performing Organization Address [facility] de Phone Number [facility] [address] [address] [facility] [place] [address] * (ABNORMAL) Hemoglobin A1c (05/03/2021 4:19 AM STAFF FORESTER) Pathologist [facility] Hgb A1C 13.5(H) 4.0 - 5.6 % [facility] Estimated Average Glucose 341 mg/dL [facility] Comment: The ADA recommends reporting an estimated Average Glucose (eAG) with all Hemoglobin A1c results using the equation derived from a study of 507 normal and diabetic adults. ??Minority populations were underrepresented and children were not included. ?? (Diabetes Care 31:3480-9739, 2008). ??The eAG is not equivalent to a fasting glucose. Blood 05/03/2021 4:19 AM STAFF FORESTER 05/03/2021 4:36 AM STAFF FORESTER us Erika Suárez NP LAB BLOOD ORDERABLES Final R esult Performing Organization Address City/State/ZIP Co ma Phone Number [facility] [address] [place] [address] * Critical Care (05/02/2021 8:00 PM STAFF FORESTER) Narrative Wally Aguilar, - 05/02/2021 8:00 PM STAFF FORESTER Wally Aguilar, DO ? 05/02/2021 10:37 PM Critical Care Performed by: Wally Aguilar DO Authorized by: Wally Aguilar DO CRITICAL CARE: ??Team: ??CHNE ??Shift: ??PM ??Level of Billing: ??Critical Care ??My time spent with this patient was 50 minutes: Critical Provider Statement: I have seen and examined the patient on this day of service. I have reviewed and confirmed the history, physical exam, laboratory and radiologic data as documented in the signed ICU note. I have reviewed and discussed my treatment plan with the ICU team and other medical/environmental remediation consultant staff, making frequent assessments and decisions regarding this patient's complex medical care. Critical Care time was exclusive of time spent performing separately billed procedures, treating other patients, and teaching. This time was in addition to and separate from critical care provided by other practitioners in my group on this day of service. Critical Care was necessary to treat or prevent imminent or life-threatening deterioration of the following conditions: ? Acute pain/acute postoperative pain ?? Cardiogenic shock, ST-Elevation myocardial infarction (STEMI) and Cardiomyopathy ?? Atelectasis and Pulmonary edema ?? Acute blood loss anemia ??This time was spent by me doing the following: ? Serial bedside patient exams ?? Acute pain control ?? Serial neurovascular exams ?? IABP management, ?? Active and frequent reassessment of respiratory status and oxygen requirements and Invasive ventilator management, reassessment, and titration ?? Active and frequent monitoring of intake/output and volumen status ?? Initiation/management of anti-platelet agents, Initiation/monitoring/titration of anticoagulants and Transfusion of blood products ?? Review of prior or current culture/gram stain results ?? I spent time reviewing and interpreting data from bedside monitors, laboratory results, and imaging, I spent time discussing the management of this critically ill patient with consultants and the medical staff and I spent time documenting in the medical record Wally Aguilar DO IN CLINIC/BEDSIDE ORDER REJI Final Result * eGFR (05/02/2021 7:35 PM STAFF FORESTER) eGFR 110 mL/min/1.7 3 m2 [facility] Comment: Interpretive Data Reference Interval Normal ?>/= 90 mL/min/1.73m2 Mildly decreased* ? 60 - 89 mL/min/1.73m2 Mildly to moderately decreased ?45 - 59 mL/min/1.73m2 Moderately to severely decreased ??30 - 44 mL/min/1.73m2 Severely decreased ?15 - 29 mL/min/1.73m2 Kidney Failure ?< 15 ??mL/min/1.73m2 *Relative to young adult level Estimated glomerular filtration rate is determined by the CKD-EPI equation recommended by the National Kidney Foundation (KDIGO 2012 Clinical Practice Guideline for the Evaluation and Management of Chronic Kidney Disease. Kidney Intnl Suppl Jun 2012;3:1). The CKD-EPI equation should not be used for patients with unstable renal function and has not been validated in children and those over 70. Current interpretive data was last reviewed 2020 Blood 05/02/2021 7:35 PM STAFF FORESTER 05/02/2021 8:04 PM STAFF FORESTER Wally Aguilar DO LAB BLOOD ORDERABLES Fi nal Result [facility] [address] [place] [address] * Magnesium (05/02/2021 7:35 PM STAFF FORESTER) Magnesium 1.6 1.4 - 2.5 mg/dL [facility] Blood 05/02/2021 7:35 PM STAFF FORESTER 05/02/2021 8:04 PM STAFF FORESTER Wally Aguilar DO LAB BLOOD ORDERABLES Fi nal Result Performing Organization Address City/[facility] Co de Phone Number [facility] DON [address] [place] [address] * (ABNORMAL) Basic metabolic panel (05/02/2021 7:35 PM STAFF FORESTER) Sodium 135 135 - 145 mmol/L [facility] Potassium, pl 3.6 3.3 - 4.9 mmol/L [facility] Chloride 103 97 - 110 mmol/L [facility] CO2 21(L) 22 - 32 mmol/L [facility] Anion gap 11 2 - 15 mmol/L [facility] BUN 6(L) 8 - 25 mg/dL [facility] Creatinine 0.60(L) 0.80 - 1.30 mg/dL [facility] Glucose 148 70 - 199 mg/dL [facility] Comment: Interpretive Data Fasting glucose >/= 126 [...] interpretive data was last revised 2017. Calcium 8.4(L) 8.5 - 10.3 mg/dL [facility] Blood 05/02/2021 7:35 PM STAFF FORESTER 05/02/2021 8:04 PM STAFF FORESTER Wally Aguilar LAB BLOOD ORDERABLES Fi nal Result Performing Organization Address [facility] Co de Phone Number [facility] DON [address] [place] [address] * (ABNORMAL) CBC without differential (05/02/2021 7:35 PM STAFF FORESTER) WBC 16.5(H) 3.8 - 9.9 K/cumm [facility] Hgb 10.4(L) 13.0 - 17.5 g/dL [facility] Comment:Hemoglobin delta due to apparent blood transfusion. Hct 30.7(L) 38.9 - 50.3 % [facility] Plt 317 150 - 400 K/cumm [facility] MPV 11.9 9.1 - 12.3 fL [facility] RBC 3.38(L) 4.30 - 5.80 M/cumm [facility] MCV 90.8 81.3 - 96.4 fL [facility] MCH 30.8 27.1 - 33.3 pg [facility] MCHC 33.9 32.3 - 35.7 g/dL [facility] RDW CV 14.0 11.1 - 14.9 % [facility] RDW SD 47.1 35.7 - 48.1 fL [facility] NRBC abs 0.00 0.00 - 0.01 K/cumm [facility] Blood 05/02/2021 7:35 PM STAFF FORESTER 05/02/2021 8:04 PM STAFF FORESTER Wally Aguilar DO LAB BLOOD ORDERABLES Fi nal Result Performing Organization Address City/[facility] Co de Phone Number [facility] DON [address] [place] [address] * Transfuse RBC (05/02/2021 7:01 PM STAFF FORESTER) Blood specimen (specimen) Balta Ahn MD BLOOD TRANSFUSION ORDERABLES E dited Result - Final [facility] [address] [place] [address] * Transfuse RBC: 1 Units (05/02/2021 7:01 PM STAFF FORESTER) Blood specimen (specimen) Balta Ahn MD BLOOD TRANSFUSION ORDERABLES E dited Result - Final * POCT glucose (05/02/2021 5:23 PM STAFF FORESTER) Pathologist [facility] Glucose, POC 102 70 - 199 mg/dL [facility] Blood 05/02/2021 5:23 PM STAFF FORESTER 05/02/2021 5:23 PM STAFF FORESTER Nalini Clayton MD LAB POCT ORDERABLES - DEVICE Fin al Result Performing Organization Address City/[facility] Co de Phone Number [facility] ODN [address] [place], [place] [id number] * Prepare RBC: 1 Units (05/02/2021 3:27 PM STAFF FORESTER) [facility] Product code [id number] [facility] Unit Number [id number] [facility] Product Blood Type APOS [facility] Dispense Status PRESUMED TRANSFUSED [facility] Blood 05/02/2021 3:27 PM STAFF FORESTER Narrative [facility] - 05/02/2021 10:15 PM STAFF FORESTER Are special requirements needed? (all products are leukoreduced)->No Date required:-20210502 LRRBC # of [id number] Reasons:-Cardiovascular disease, Hgb <8 g/dL} Balta Ahn MD BLOOD BANK PRODUCT ORDERABLES Final Result Performing Organization Address [facility] Co de Phone Number [facility] [address] [place], [place] [id number] * (ABNORMAL) CBC without differential (05/02/2021 3:12 PM STAFF FORESTER) [facility] WBC 14.7(H) 3.8 - 9.9 K/cumm [facility] Hgb 7.2(L) 13.0 - 17.5 g/dL [facility] Hct 21.4(L) 38.9 - 50.3 % [facility] Plt 242 150 - 400 K/cumm [facility] MPV 11.6 9.1 - 12.3 fL [facility] RBC 2.27(L) 4.30 - 5.80 M/cumm [facility] MCV 94.3 81.3 - 96.4 fL [facility] MCH 31.7 27.1 - 33.3 pg [facility] MCHC 33.6 32.3 - 35.7 g/dL [facility] RDW CV 13.6 11.1 - 14.9 % [facility] RDW SD 46.9 35.7 - 48.1 fL [facility] NRBC abs 0.00 0.00 - 0.01 K/cumm [facility] Blood 05/02/2021 3:12 PM STAFF FORESTER 05/02/2021 3:18 PM STAFF FORESTER us Joe Weinberg MD LAB BLOOD ORDERABLES Final Resul t [facility] [address] [place] [address] * Critical Care (05/02/2021 2:27 PM STAFF FORESTER) Narrative Frank Dugan MD - 05/02/2021 2:27 PM STAFF FORESTER Frank Dugan MD ? 05/02/2021 ??3:26 PM Critical Care Performed by: Frank Dugan MD Authorized by: Frank Dugan MD CRITICAL CARE: ??Team: ??CHNE ??Shift: ??AM ??Level of Billing: ??Critical Care ??My time spent with this patient was 40 minutes: Critical Provider Statement: I have seen and examined the patient on this day of service. I have reviewed and confirmed the history, physical exam, laboratory and radiologic data as documented in the signed ICU note. I have reviewed and discussed my treatment plan with the ICU team and other medical/environmental remediation consultant staff, making frequent assessments and decisions regarding this patient's complex medical care. Critical Care time was exclusive of time spent performing separately billed procedures, treating other patients, and teaching. This time was in addition to and separate from critical care provided by other practitioners in my group on this day of service. Critical Care was necessary to treat or prevent imminent or life-threatening deterioration of the following conditions: ? Acute pain/acute postoperative pain ?? ST-Elevation myocardial infarction (STEMI) ?? PVD Acute on chronic low back pain Hx of CAD s/p multiple stent placements STEMI ??With IABP in place Hemoptysis ??X 1 ??- monitor Hematuria Hx of urinary retetntion ?? Hypo- or Hyperglycemia ?? Acute blood loss anemia ?? Leukocytosis ??This time was spent by me doing the following: ? Acute pain control ?? Incentive spirometry, pulmonary toilet ?? Glycemic control and Active and frequent monitoring of intake/output and volumen status ?? Active repletion of electrolytes and Active diuresis ?? Initiation/management of anti-platelet agents, Initiation/monitoring/titration of anticoagulants and Transfusion of blood products ?? I spent time documenting in the medical record, I spent time discussing the management of this critically ill patient with consultants and the medical staff and I spent time reviewing and interpreting data from bedside monitors, laboratory results, and imaging Frank Dugan MD IN CLINIC/BEDSIDE ORDERABLES Edited Result - Final * POCT glucose (05/02/2021 11:03 AM STAFF FORESTER) Pathologist [facility] Glucose, POC 110 70 - 199 mg/dL [facility] Blood 05/02/2021 11:0 3 AM STAFF FORESTER 05/02/2021 11:03 AM STAFF FORESTER Nalini Clayton MD LAB POCT ORDERABLES - DEVICE Fin al Result [facility] [address] [facility] Department [place] [address] * COVID-19 Coronavirus RNA Nasopharyngeal (05/02/2021 11:00 AM STAFF FORESTER) [facility] COVID-19 RNA Negative Negative [facility] Comment: Interpretive data: Synonyms for this test include: PCR and NAAT . ??This test is performed using the [employer] Xpert Xpress assay. This is a real-time RT-PCR test intended for the qualitative detection of nucleic acid from the SARS-CoV-2. This assay has been reviewed by the FDA for Emergency Use Authorization (EUA). The performance characteristics have been verified by the performing laboratory. Results must be considered in the clinical context and a negative result does not rule out infection. Interpretive data last revised July 24, 2020. First COVID-19 test? Yes [facility] Employeed in healthcare? No [facility] Group care resident? No [facility] Hospitalized? Yes [facility] Is patient in ICU? Yes [facility] Symptomatic as defined by CDC? No [facility] Nasopharyngeal 05/02/2021 11 :00 AM STAFF FORESTER 05/02/2021 11:36 AM STAFF FORESTER Narrative [facility] - 05/02/2021 12:34 PM STAFF FORESTER What is the reason for testing?->Screening prior to urgent surgery, procedure, BMT, immunosuppressive therapy us Rhina Granados MD LAB MICROBIOLOGY - GENERAL O RDERABLES Final Result Performing Organization Address City/[facility] Co de Phone Number [facility] [address] [facility] [place] [address] * (ABNORMAL) aPTT (05/02/2021 11:00 AM STAFF FORESTER) aPTT 61(H) 27 - 37 sec [facility] Comment: Interpretive Data Therapeutic heparin range: 60.0 - 94.0 seconds. Based on correlation with therapeutic heparin activity range of 0.3-0.7 Units/mL. Current interpretive data was last revised on 2020. Blood 05/02/2021 11:0 0 AM STAFF FORESTER 05/02/2021 11:11 AM STAFF FORESTER us Loree Enciso ESCROW CLERK LAB BLOOD ORDERABLES F inal Result Performing Organization Address [facility] Co de Phone Number [facility] [address] [facility] [place] [address] * TRANSTHORACIC ECHO (TTE) COMPLETE W DOPPLER/CF WO CONTRAST (05/02/2021 9:15 AM STAFF FORESTER) Anatomical Region Laterality Modality Ultrasound 05/02/2021 8:50 AM STAFF FORESTER Narrative 05/02/2021 2:07 PM STAFF FORESTER [facility] [id number] [place] [id number] Echocardiogram Report Patient Name: DEEPAK ALVARADO W : 1960 Study Date: 05/02/2021 8:50:02 AM Gender: M Tech: Location: [id number] Ref Provider: Yo CLAYTONight(Cm): 175 BSA: 2.11 Weight(Kg): 92 Heart Rate: 89 BP: 102/52 Quality: Good Order Provider: NALINI CLAYTON PROCEDURES: Echocardiographic Report: Transthoracic echocardiogram with complete 2D, M-Mode, and color Doppler examination. INDICATIONS: Free Text. Measurements: 2D/M Mode ?Doppler ? Measurement ?Value ?Normal Range ? Measurement ?Value ?Normal Range ? EF Teich 2D ?30.0 ? [ 55.0 - 70.0 ] percent ?CHRISTINA Vmax ? 2.04 ? [ 2.00 - 4.00 ] cm2 ? EF Mod 4C ?42.2 ? [ 55.0 - 70.0 ] percent ?AV Mean PG ? 5 ?[ 2 - 4 ] mmHg ? LVIDd 2D ? 4.54 ? [ 4.20 - 5.90 ] cm ? AV Peak Ramesh ?1.54 ? [ 1.00 - 1.70 ] m/s ? LVIDs 2D ? 3.91 ? [ 2.30 - 3.90 ] cm ? AV VTI ? 26.93 ?cm ? LVPWd 2D ? 0.92 ? [ 0.60 - 1.00 ] cm ? LVOT Diam ?2.20 ? [ 1.70 - 2.10 ] cm ? IVSd 2D ?0.76 ? [ 0.60 - 0.90 ] cm ? LVOT Peak Ramesh ?0.83 ? [ 0.70 - 1.10 ] m/s ? LA Dimension MM ?5.08 ? [ 3.00 - 4.00 ] cm ? LVOT VTI ? 13.82 ?[ 20.00 - 30.00 ] cm ? AoR Diam MM ?4.12 ? [ 2.60 - 3.70 ] cm ? MV E Peak Ramesh ?0.85 ? [ 0.60 - 1.30 ] m/s ? LA Volume Index ?20.83 ?[ 16.00 - 28.00 ] cc/m2 ?MV A Peak Ramesh ?1.14 ? [ 1.00 - 1.20 ] m/s ? ACS MM ? 1.91 ? [ 1.50 - 2.60 ] cm ? MV Mean PG ? 1 ?[ <= 5 ] mmHg ? MV PHT ? 43 ? [ 20 - 100 ] msec ? MVA ?2.20 ? MV Decel Time ?137 ?[ 104 - 258 ] msec ? PV Peak Ramesh ?1.10 ? [ 0.40 - 0.80 ] m/s ? TR Peak Ramesh ?1.32 ? [ 1.00 - 2.80 ] m/s ? TR Peak PG ? 7 ?mmHg ? RVSP ? 16.93 ?[ 10.00 - 36.00 ] mmHg ? E' ? 0.06 ? E/E' ? 14.00 ? Measurement ?Value ?Normal Range ? Measurement ?Value ?Normal Range ? 2D/M Mode ?Doppler ? - FINDINGS: Atrial Septum: Normal atrial septum. Left Ventricle: Normal left ventricular size. Left ventricle not well visualized. There is severe hypokinesis of the mid anteroseptal, anterior, and apical mancilla. Normal left ventricular wall thickness. Impaired diastolic relaxation Grade I. Ejection fraction is visually estimated at 40 %. Left Atrium: The left atrium is normal in size. Right Ventricle: Normal right ventricular size. Normal right ventricular systolic function. Right Atrium: The right atrium is normal in size. Aortic Valve: Normal structure of the aortic valve. No evidence of hemodynamically significant aortic stenosis by Doppler. No aortic regurgitation. Mitral Valve: Normal structure of the mitral valve. Trivial regurgitation of the mitral valve. Pulmonic Valve: Pulmonic valve not well visualized. Trivial regurgitation in the pulmonic valve. Tricuspid Valve: Normal structure of the tricuspid valve. Trivial regurgitation in the tricuspid valve. Pericardium: Normal pericardium with no significant pericardial effusion. Aorta: Normal aortic root. IVC: Normal size and normal respiratory collapse consistent with normal right atrial pressure (<5 mmHg). CONCLUSIONS: Technically difficult study with limited views. Normal left ventricular size. Left ventricle not well visualized. There is severe hypokinesis of the mid anteroseptal, anterior, and apical mancilla. Normal left ventricular wall thickness. Impaired diastolic relaxation Grade I. Ejection fraction is visually estimated at 40 %. Normal right ventricular size. Normal right ventricular systolic function. Normal structure of the mitral valve. Trivial regurgitation of the mitral valve. Normal structure of the tricuspid valve. Trivial regurgitation in the tricuspid valve. Electronically Signed By: Rylee Brito DO, FACC, FASE, FASNC 2021-05-02 14:07:25 STAFF FORESTER CC: CC: CC: Procedure Note Rylee Brito DO - 05/02/2021 [place] [address] Echocardiogram Report Patient Name: DEEPAK ALVARADO atient ID: [id number] : [id number] Date: 05/02/2021 8:50:02 AM Gender: MAccession #: [id number] Tech: SRLocation: [id number] Ref Provider: Yo CLAYTONight(Cm): 175 BSA: 2.11Weight(Kg): 92 Heart Rate: 89BP: 102/52 Quality: GoodOrder Provider: NALINI CLAYTON PROCEDURES: Echocardiographic Report: Transthoracic echocardiogram with complete 2D, M-Mode, and color Dopplerexamination. INDICATIONS: Free Text. Measurements: 2D/M Mode Doppler Measurement Value Normal Range MeasurementValue Normal Range EF Teich 2D 30.0 [ 55.0 - 70.0 ] percent CHRISTINA Vmax2.04 [ 2.00 - 4.00 ] cm2 EF Mod 4C 42.2 [ 55.0 - 70.0 ] percent AV Mean PG 5[ 2 - 4 ] mmHg LVIDd 2D 4.54 [ 4.20 - 5.90 ] cm AV Peak Vel1.54 [ 1.00 - 1.70 ] m/s LVIDs 2D 3.91 [ 2.30 - 3.90 ] cm AV VTI26.93 cm LVPWd 2D 0.92 [ 0.60 - 1.00 ] cm LVOT Diam2.20 [ 1.70 - 2.10 ] cm IVSd 2D 0.76 [ 0.60 - 0.90 ] cm LVOT Peak Vel0.83 [ 0.70 - 1.10 ] m/s LA Dimension MM 5.08 [ 3.00 - 4.00 ] cm LVOT VTI13.82 [ 20.00 - 30.00 ] cm AoR Diam MM 4.12 [ 2.60 - 3.70 ] cm MV E Peak Vel0.85 [ 0.60 - 1.30 ] m/s LA Volume Index 20.83 [ 16.00 - 28.00 ] cc/m2 MV A Peak Vel1.14 [ 1.00 - 1.20 ] m/s ACS MM 1.91 [ 1.50 - 2.60 ] cm MV Mean PG 1[ <= 5 ] mmHg MV PHT 43[ 20 - 100 ] msec MVA2.20 MV Decel [id number] [ 104 - 258 ] msec PV Peak Vel1.10 [ 0.40 - 0.80 ] m/s TR Peak Vel1.32 [ 1.00 - 2.80 ] m/s TR Peak PG 7mmHg RVSP16.93 [ 10.00 - 36.00 ] mmHg E'0.06 E/E'14.00 Measurement Value Normal Range MeasurementValue Normal Range 2D/M Mode Doppler - FINDINGS: Atrial Septum: Normal atrial septum. Left Ventricle: Normal left ventricular size. Left ventricle not well visualized. There issevere hypokinesis of the mid anteroseptal, anterior, and apical mancilla. Normalleft ventricular wall thickness. Impaired diastolic relaxation Grade I. Ejection fractionis visually estimated at 40 %. Left Atrium: The left atrium is normal in size. Right Ventricle: Normal right ventricular size. Normal right ventricular systolicfunction. Right Atrium: The right atrium is normal in size. Aortic Valve: Normal structure of the aortic valve. No evidence of hemodynamicallysignificant aortic stenosis by Doppler. No aortic regurgitation. Mitral Valve: Normal structure of the mitral valve. Trivial regurgitation of the mitralvalve. Pulmonic Valve: Pulmonic valve not well visualized. Trivial regurgitation in the pulmonicvalve. Tricuspid Valve: Normal structure of the tricuspid valve. Trivial regurgitation in thetricuspid valve. Pericardium: Normal pericardium with no significant pericardial effusion. Aorta: Normal aortic root. IVC: Normal size and normal respiratory collapse consistent with normal rightatrial pressure (<5 mmHg). CONCLUSIONS: Technically difficult study with limited views. Normal left ventricular size. Left ventricle not well visualized. There issevere hypokinesis of the mid anteroseptal, anterior, and apical mancilla. Normalleft ventricular wall thickness. Impaired diastolic relaxation Grade I. Ejection fractionis visually estimated at 40 %. Normal right ventricular size. Normal right ventricular systolicfunction. Normal structure of the mitral valve. Trivial regurgitation of the mitralvalve. Normal structure of the tricuspid valve. Trivial regurgitation in thetricuspid valve. Electronically Signed By: Rylee Brito DO, FACC, FASE, FASNC 2021-05-02 14:07:25 STAFF FORESTER CC: CC: CC: Nalini Clayton MD CV ECHO PROCEDURES Final Result * POCT glucose (05/02/2021 8:31 AM STAFF FORESTER) Glucose, POC 117 70 - 199 mg/dL [facility] Blood 05/02/2021 8:31 AM STAFF FORESTER 05/02/2021 8:31 AM STAFF FORESTER Nalini Clayton MD LAB POCT ORDERABLES - DEVICE Fin al Result [facility] [address] Department [place] [address] * XR Chest 1 Vw Portable (05/02/2021 5:40 AM STAFF FORESTER) Anatomical Region Laterality Modality Body, Chest N/A Computed Radiogr aphy 05/02/2021 6:41 AM STAFF FORESTER Impressions 05/02/2021 6:41 AM STAFF FORESTER 1. ??Appropriately positioned intra-aortic balloon pump. 2. ??Similar mixed reticular and alveolar opacities most notable in the bilateral upper lobes and perihilar region. Electronically signed by: Richard Lopez II, D.O. Narrative 05/02/2021 6:41 AM STAFF FORESTER EXAMINATION: XR CHEST 1 VIEW DATE: 05/02/2021 5:15 AM INDICATION: Intra-aortic balloon pump. COMPARISON: 05/01/2021. FINDINGS: Appropriately positioned intra-aortic balloon pump appears unchanged. No pneumothorax or pleural effusion. ??Mixed reticular and alveolar opacities demonstrated in all lung lobes appear most significant in the upper lobes and perihilar regions, unchanged. ?? Procedure Note Richard Lopez II, DO - 05/02/2021 EXAMINATION: XR CHEST 1 VIEW DATE: 05/02/2021 5:15 AM INDICATION: Intra-aortic balloon pump. COMPARISON: 05/01/2021. FINDINGS: Appropriately positioned intra-aortic balloon pump appears unchanged. No pneumothorax or pleural effusion. Mixed reticular and alveolar opacities demonstrated in all lung lobes appear most significant in the upper lobes and perihilar regions, unchanged. IMPRESSION: 1. Appropriately positioned intra-aortic balloon pump. 2. Similar mixed reticular and alveolar opacities most notable in the bilateral upper lobes and perihilar region. Electronically signed by: Richard Lopez II, D.O. Nalini Clayton MD IMG XR PROCEDURES Final Result * POCT glucose (05/02/2021 4:50 AM STAFF FORESTER) Glucose, POC 106 70 - 199 mg/dL [facility] Blood 05/02/2021 4:50 AM STAFF FORESTER 05/02/2021 4:50 AM STAFF FORESTER us Nalini Clayton MD LAB POCT ORDERABLES - DEVICE Fin al Result Performing Organization Address City/[facility]/ZIP Co de Phone Number [facility] [address] [place] [address] * eGFR (05/02/2021 4:43 AM STAFF FORESTER) Pathologist [facility] eGFR 110 mL/min/1.7 3 m2 [facility] Comment: Interpretive Data Reference Interval Normal ?>/= 90 mL/min/1.73m2 Mildly decreased* ? 60 - 89 mL/min/1.73m2 Mildly to moderately decreased ?45 - 59 mL/min/1.73m2 Moderately to severely decreased ??30 - 44 mL/min/1.73m2 Severely decreased ?15 - 29 mL/min/1.73m2 Kidney Failure ?< 15 ??mL/min/1.73m2 *Relative to young adult level Estimated glomerular filtration rate is determined by the CKD-EPI equation recommended by the National Kidney Foundation (KDIGO 2012 Clinical Practice Guideline for the Evaluation and Management of Chronic Kidney Disease. Kidney Intnl Suppl Jun 2012;3:1). The CKD-EPI equation should not be used for patients with unstable renal function and has not been validated in children and those over 70. Current interpretive data was last reviewed 2020 Blood 05/02/2021 4:43 AM STAFF FORESTER 05/02/2021 4:57 AM STAFF FORESTER Nalnii Clayton MD LAB BLOOD ORDERABLES Final Resul t Performing Organization Address City/[facility]/ZIP Co de Phone Number [facility] [address] Department of Laboratories [place], [place] [id number] * (ABNORMAL) Troponin T high-sensitivity 6-hour (05/02/2021 4:43 AM STAFF FORESTER) Trop T hs 6,777(C) <=22 ng/L [facility] Comment: Critical Result called to and read back by Persistent abnormal result, DATE: 2021-05-02 05:30:44 BY: Royal Bar Interpretive Data For further hscTnT resources including the diagnostic algorithm and an aid in interpretation, copy and paste this link: [email or web address].[email or web address]/[email or web address] Current Interpretive Data last revised 2020. Trop T hs pct delta 16 % [facility] Trop T hs interp Equivocal [facility] Blood 05/02/2021 4:43 AM STAFF FORESTER 05/02/2021 4:57 AM STAFF FORESTER us Nalini Clayton MD LAB BLOOD ORDERABLES Final Resul t [facility] [address] [place] [address] * (ABNORMAL) Basic metabolic panel (05/02/2021 4:43 AM STAFF FORESTER) Sodium 135 135 - 145 mmol/L [facility] Potassium, pl 3.3 3.3 - 4.9 mmol/L [facility] Chloride 106 97 - 110 mmol/L [facility] CO2 21(L) 22 - 32 mmol/L [facility] Anion gap 8 2 - 15 mmol/L [facility] BUN 8 8 - 25 mg/dL [facility] Creatinine 0.60(L) 0.80 - 1.30 mg/dL [facility] Glucose 106 70 - 199 mg/dL [facility] Comment: Interpretive Data Fasting glucose >/= 126 [...] interpretive data was last revised 2017. Calcium 8.4(L) 8.5 - 10.3 mg/dL [facility] Blood 05/02/2021 4:43 AM STAFF FORESTER 05/02/2021 4:57 AM STAFF FORESTER Rhina Granados MD LAB BLOOD ORDERABLES Final R esult Performing Organization Address City/[facility] Co de Phone Number [facility] [address] [place] [address] * (ABNORMAL) CBC without differential (05/02/2021 4:43 AM STAFF FORESTER) WBC 18.3(H) 3.8 - 9.9 K/cumm [facility] Hgb 9.6(L) 13.0 - 17.5 g/dL [facility] Hct 29.3(L) 38.9 - 50.3 % [facility] Plt 313 150 - 400 K/cumm [facility] MPV 11.5 9.1 - 12.3 fL [facility] RBC 3.09(L) 4.30 - 5.80 M/cumm [facility] MCV 94.8 81.3 - 96.4 fL [facility] MCH 31.1 27.1 - 33.3 pg [facility] MCHC 32.8 32.3 - 35.7 g/dL [facility] RDW CV 13.3 11.1 - 14.9 % [facility] RDW SD 46.5 35.7 - 48.1 fL [facility] NRBC abs 0.00 0.00 - 0.01 K/cumm [facility] Blood 05/02/2021 4:43 AM STAFF FORESTER 05/02/2021 4:57 AM STAFF FORESTER Narrative [facility] - 05/02/2021 5:02 AM STAFF FORESTER Until heparin is discontinued. us Nalini Clayton MD LAB BLOOD ORDERABLES Final Resul t Performing Organization Address City/[facility]/ZIP Co de Phone Number [facility] [address] [place] [address] * (ABNORMAL) Troponin T high-sensitivity 4-hour (05/02/2021 2:34 AM STAFF FORESTER) Trop T hs 7,050(C) <=22 ng/L [facility] Comment: Critical Result called to and read back by Persistant abnormal result, DATE: 2021-05-02 03:17:35 BY: Mila Herrmann Interpretive Data For further hscTnT resources including the diagnostic algorithm and an aid in interpretation, copy and paste this link: [email or web address]/[email or web address] Current Interpretive Data last revised 2020. Trop T hs pct delta 20(C) % [facility] Comment:Critical Result call ed to and read back by Persistant abnormal result, DATE: 2021-05-02 03:17:35 BY: Mila Herrmann Trop T hs interp Significa nt(C) [facility] Comment:Critical Result call ed to and read back by Persistant abnormal result, DATE: 2021-05-02 03:17:35 BY: Mila Herrmann Blood 05/02/2021 2:34 AM STAFF FORESTER 05/02/2021 2:48 AM STAFF FORESTER us Nalini Clayton MD LAB BLOOD ORDERABLES Final Resul t [facility] [address] [place] [address] * (ABNORMAL) Troponin T high-sensitivity 2-hour (05/02/2021 12:32 AM STAFF FORESTER) Trop T hs 7,281(C) <=22 ng/L [facility] Comment: Critical Result called to and read back by Mani Talbert, DATE: 2021-05-02 01:17:12 BY: Royal Bar Interpretive Data For further hscTnT resources including the diagnostic algorithm and an aid in interpretation, copy and paste this link: [email or web address]/[email or web address] Current Interpretive Data last revised 2020. Trop T hs pct delta 24(C) % [facility] Comment:Critical Result call ed to and read back by Mani Talbert, DATE: 2021-05-02 01:17:12 BY: Royal Romack Trop T hs interp Significa nt(C) [facility] Comment:Critical Result call ed to and read back by Mani Diegoabrahamjoanne, DATE: 2021-05-02 01:17:12 BY: Royal Bar Blood 05/02/2021 12:3 2 AM STAFF FORESTER 05/02/2021 12:44 AM STAFF FORESTER Nalini Clayton MD LAB BLOOD ORDERABLES Final Resul t Performing Organization Address [facility] de Phone Number [facility] [address] [facility] [place] [address] * (ABNORMAL) aPTT (05/02/2021 12:32 AM STAFF FORESTER) aPTT 70(H) 27 - 37 sec [facility] Comment: Interpretive Data Therapeutic heparin range: 60.0 - 94.0 seconds. Based on correlation with therapeutic heparin activity range of 0.3-0.7 Units/mL. Current interpretive data was last revised on 2020. Blood 05/02/2021 12:3 2 AM STAFF FORESTER 05/02/2021 12:46 AM STAFF FORESTER Nalini Clayton MD LAB BLOOD ORDERABLES Final Resul t Performing Organization Address [facility] de Phone Number [facility] [address] [facility] [place] [address] * (ABNORMAL) Lipid panel (05/02/2021 12:32 AM STAFF FORESTER) Cholesterol 139 30 - 199 mg/dL [facility] Comment: Interpretive Data Ages < or = [...] Data was last revised on 2018. Triglycerides 105 <=149 mg/dL [facility] Comment: Interpretive Data Ages < or = [...] Data was last revised on 2018. HDL 33(L) >=40 mg/dL [facility] Comment: Interpretive Data Ages < or = [...] was last revised on 2018. LDL, calculated 85 <=129 mg/dL [facility] Comment: Interpretive Data Ages < or = [...] was last revised on 2018. Non-HDL Cholesterol 106 mg/dL [facility] Comment: Interpretive Data Ages < or = [...] last revised on 2018. Chol/HDL ratio 4 [facility] Blood 05/02/2021 12:3 2 AM STAFF FORESTER 05/02/2021 12:44 AM STAFF FORESTER us Nalini Clayton MD LAB BLOOD ORDERABLES Final Resul t [facility] [address] Department [place] [address] * Type and screen (05/02/2021 12:32 AM STAFF FORESTER) ABO Rh A Positive [facility] Shelby, indirect Negative [facility] Blood 05/02/2021 12:3 2 AM STAFF FORESTER 05/02/2021 12:46 AM STAFF FORESTER Narrative [facility] - 05/02/2021 1:30 AM STAFF FORESTER Has the patient had Daratumumab or Isatuximab in the past 6 months?->Unknown Nalini Clayton MD LAB BLOOD BANK TEST ORDERABLES F inal Result [facility] [address] [place] [address] * eGFR (05/01/2021 10:19 PM STAFF FORESTER) eGFR 108 mL/min/1.7 3 m2 [facility] Comment: Interpretive Data Reference Interval Normal ?>/= 90 mL/min/1.73m2 Mildly decreased* ? 60 - 89 mL/min/1.73m2 Mildly to moderately decreased ?45 - 59 mL/min/1.73m2 Moderately to severely decreased ??30 - 44 mL/min/1.73m2 Severely decreased ?15 - 29 mL/min/1.73m2 Kidney Failure ?< 15 ??mL/min/1.73m2 *Relative to young adult level Estimated glomerular filtration rate is determined by the CKD-EPI equation recommended by the National Kidney Foundation (KDIGO 2012 Clinical Practice Guideline for the Evaluation and Management of Chronic Kidney Disease. Kidney Intnl Suppl Jun 2012;3:1). The CKD-EPI equation should not be used for patients with unstable renal function and has not been validated in children and those over 70. Current interpretive data was last reviewed 2020 Blood 05/01/2021 10:1 9 PM STAFF FORESTER 05/01/2021 11:03 PM STAFF FORESTER Wally Aguilar DO LAB BLOOD ORDERABLES Fi nal Result [facility] [address] [place] [address] * (ABNORMAL) Differential, auto (05/01/2021 10:19 PM STAFF FORESTER) Neutrophil abs 11.5(H) 1.7 - 6.5 K/cumm [facility] Imm gran abs 0.1 0.0 - 0.1 K/cumm [facility] Lymphocyte abs 2.4 0.8 - 3.3 K/cumm [facility] Monocyte abs 1.5(H) 0.2 - 0.8 K/cumm [facility] Eosinophil abs 0.1 0.0 - 0.5 K/cumm [facility] Basophil abs 0.1 0.0 - 0.1 K/cumm [facility] Neutrophil pct 73.4 % [facility] Comment: Interpretive Data Percent cell count reference ranges are not reported, since discordance with absolute values may lead to misinterpretation of CBC data. Current Interpretive Data was last revised on 2017. Imm gran pct 0.4 % [facility] Comment: Interpretive Data Percent cell count reference ranges are not reported, since discordance with absolute values may lead to misinterpretation of CBC data. Current Interpretive Data was last revised on 2017. Lymphocyte pct 15.5 % [facility] Comment: Interpretive Data Percent cell count reference ranges are not reported, since discordance with absolute values may lead to misinterpretation of CBC data. Current Interpretive Data was last revised on 2017. Monocyte pct 9.8 % [facility] Comment: Interpretive Data Percent cell count reference ranges are not reported, since discordance with absolute values may lead to misinterpretation of CBC data. Current Interpretive Data was last revised on 2017. Eosinophil pct 0.6 % [facility] Comment: Interpretive Data Percent cell count reference ranges are not reported, since discordance with absolute values may lead to misinterpretation of CBC data. Current Interpretive Data was last revised on 2017. Basophil pct 0.3 % [facility] Comment: Interpretive Data Percent cell count reference ranges are not reported, since discordance with absolute values may lead to misinterpretation of CBC data. Current Interpretive Data was last revised on 2017. Blood 05/01/2021 10:1 9 PM STAFF FORESTER 05/01/2021 10:53 PM STAFF FORESTER Wally Aguilar DO LAB BLOOD ORDERABLES Fi nal Result Performing Organization Address [facility] Co de Phone Number [facility] [address] [facility] [place] [address] * (ABNORMAL) aPTT (05/01/2021 10:19 PM STAFF FORESTER) aPTT 82(H) 27 - 37 sec [facility] Comment: Interpretive Data Therapeutic heparin range: 60.0 - 94.0 seconds. Based on correlation with therapeutic heparin activity range of 0.3-0.7 Units/mL. Current interpretive data was last revised on 2020. Blood 05/01/2021 10:1 9 PM STAFF FORESTER 05/01/2021 10:53 PM STAFF FORESTER Narrative [facility] - 05/01/2021 11:10 PM STAFF FORESTER Unless preformed in the last 48 hours. Draw prior to heparin administration. Nalini Clayton MD LAB BLOOD ORDERABLES Final Resul t Performing Organization Address [facility] Co de Phone Number [facility] [address] [facility] [place] [address] * (ABNORMAL) Protime-INR (05/01/2021 10:19 PM STAFF FORESTER) PT 14.5(H) 9.5 - 13.6 sec [facility] INR 1.3(H) 0.9 - 1.2 [facility] Comment: Interpretive data Oral anticoagulant therapeutic ranges: Venous thromboembolism prophylaxis or treatment: 2.0-3.0 CARDIOLOGY Standard range: 2.0-3.0 High-intensity range: 2.5-3.5 Refer to indication-specific guidelines for appropriate target ranges for prosthetic heart valve replacement. Current interpretive data was last revised on 2019. Blood 05/01/2021 10:1 9 PM STAFF FORESTER 05/01/2021 10:53 PM STAFF FORESTER Narrative [facility] - 05/01/2021 11:07 PM STAFF FORESTER Unless preformed in the last 48 hours. Draw prior to heparin administration. us Nalini Clayton MD LAB BLOOD ORDERABLES Final Resul t [facility] [address] Department of Laboratories [place] [id number] * Pro B-type natriuretic peptide (05/01/2021 10:19 PM STAFF FORESTER) NT-proBNP 168 <=300 pg/mL [facility] Comment: Interpretive Comments: A. Dyspnea in Acute Care Setting All Ages: ?< 300 pg/ml, acute heart failure unlikely. < 50 yrs: ?300 - 450 pg/ml, further investigation warranted. ? > 450 pg/ml, acute heart failure likely. 50 - 74 yrs: ? 300 - 900 pg/ml, further investigation warranted. ? > 900 pg/ml, acute heart failure likely . > or = 75 yrs: ? 450 - 1800 pg/ml, further investigation warranted. ? > 1800 pg/ml, acute heart failure likely. B. Non-acute Setting < 75 yrs ? < 125 pg/ml, rules out heart failure. ? > or = 125 pg/ml, further investigation warranted. > or = 75 yrs ?< 450 pg/ml, rules out heart failure. ? > or = 450 pg/ml, further investigation warranted. - Knowledge of each individual patient's NT-proBNP range may be more useful than using similar cut-points for every patient. Please note that marked elevations in NT-proBNP levels may be observed in state other than Left Ventricular Congestive Failure, including: acute coronary syndromes, right heart strain/failure (including pulmonary embolism and cor pulmonale), critical illness, renal failure, as well as advanced age. - References: 1. Matt ABBOTT et.al. Eur Heart J. 2006:27:330-337. 2. Eligio TAVARES, Luis Alberto DURANT. J. AM Daisy Cardiol: Cardiovasc Imag. 2009;2: 216- 225. Interpretive Data Last Revised Date: 2018. Blood 05/01/2021 10:1 9 PM STAFF FORESTER 05/01/2021 10:53 PM STAFF FORESTER Wally Aguilar DO LAB BLOOD ORDERABLES Fi nal Result [facility] [address] Department [place] [address] * (ABNORMAL) CBC with auto differential (05/01/2021 10:19 PM STAFF FORESTER) WBC 15.7(H) 3.8 - 9.9 K/cumm [facility] Hgb 9.4(L) 13.0 - 17.5 g/dL [facility] Hct 28.2(L) 38.9 - 50.3 % [facility] Plt 312 150 - 400 K/cumm [facility] MPV 12.0 9.1 - 12.3 fL [facility] RBC 2.95(L) 4.30 - 5.80 M/cumm [facility] MCV 95.6 81.3 - 96.4 fL [facility] MCH 31.9 27.1 - 33.3 pg [facility] MCHC 33.3 32.3 - 35.7 g/dL [facility] RDW CV 13.2 11.1 - 14.9 % [facility] RDW SD 46.6 35.7 - 48.1 fL [facility] NRBC abs 0.00 0.00 - 0.01 K/cumm [facility] Blood 05/01/2021 10:1 9 PM STAFF FORESTER 05/01/2021 10:53 PM STAFF FORESTER us Wally Aguilar DO LAB BLOOD ORDERABLES Fi nal Result Performing Organization Address [facility]/ZIP Co de Phone Number [facility] [address] [place] [address] * (ABNORMAL) Blood gas, arterial (05/01/2021 10:19 PM STAFF FORESTER) pH, Art 7.35 7.35 - 7.45 [facility] PCO2, Arterial 37 35 - 45 mmHg [facility] PO2, Arterial 31(C) 83 - 108 mmHg [facility] Comment:Critical result call ed to and read back by Mani Talbert on 05/01/2021 23:00:58 STAFF FORESTER to [place] Bar. HCO3 Art (Calculated) 20 20 - 30 mmol/L [facility] BE, art -5 mmol/L [facility] Comment: Interpretive Data No Reference Range Established Current Interpretive Data was last revised on 2017 O2 Sat Art (Measured) 54(L) 90 - 95 % [facility] Blood 05/01/2021 10:1 9 PM STAFF FORESTER 05/01/2021 10:40 PM STAFF FORESTER Wally Aguilar spotdock LAB BLOOD ORDERABLES Fi nal Result Performing Organization Address [facility] Co de Phone Number [facility] [address] Department [place] [place], [place] [id number] * (ABNORMAL) Calcium, ionized (05/01/2021 10:19 PM STAFF FORESTER) Ca, ionized, bld 4.62 4.60 - 5.20 mg/dL [facility] Ca, ionized, bld, calc 4.50(L) 4.60 - 5.20 mg/dL [facility] Blood 05/01/2021 10:1 9 PM STAFF FORESTER 05/01/2021 10:41 PM STAFF FORESTER Wally Aguilar spotdock LAB BLOOD ORDERABLES Fi nal Result Performing Organization Address City/[facility]/ZIP Co de Phone Number [facility] [address] [place] [address] * (ABNORMAL) Comprehensive metabolic panel (05/01/2021 10:19 PM STAFF FORESTER) Sodium 134(L) 135 - 145 mmol/L [facility] Potassium, pl 4.0 3.3 - 4.9 mmol/L [facility] Chloride 103 97 - 110 mmol/L [facility] CO2 19(L) 22 - 32 mmol/L [facility] Anion gap 12 2 - 15 mmol/L [facility] BUN 9 8 - 25 mg/dL [facility] Creatinine 0.63(L) 0.80 - 1.30 mg/dL [facility] Glucose 157 70 - 199 mg/dL [facility] Comment: Interpretive Data Fasting glucose >/= 126 [...] interpretive data was last revised 2017. Calcium 8.1(L) 8.5 - 10.3 mg/dL [facility] Bilirubin, total 0.3 0.1 - 1.2 mg/dL [facility] Protein, pl 5.5(L) 6.5 - 8.5 g/dL [facility] Albumin 3.2(L) 3.5 - 5.0 g/dL [facility] Alk phos 64 40 - 130 Units/L [facility] ALT 28 7 - 55 Units/L [facility] AST 245(H) 10 - 50 Units/L [facility] Blood 05/01/2021 10:1 9 PM STAFF FORESTER 05/01/2021 10:43 PM STAFF FORESTER Wally Aguilar DO LAB BLOOD ORDERABLES Fi nal Result [facility] [address] [place] [address] * Magnesium (05/01/2021 10:19 PM STAFF FORESTER) Pathologist [facility] Magnesium 1.6 1.4 - 2.5 mg/dL [facility] Blood 05/01/2021 10:1 9 PM STAFF FORESTER 05/01/2021 10:43 PM STAFF FORESTER Silviano Huddleston ESCROW CLERK LAB BLOOD ORDERABLES Final Result Performing Organization Address City/[facility]/ZIP Co de Phone Number [facility] [address] [place] [address] * Phosphorus (05/01/2021 10:19 PM STAFF FORESTER) [facility] Phosphorus, pl 3.4 2.3 - 4.5 mg/dL [facility] Blood 05/01/2021 10:1 9 PM STAFF FORESTER 05/01/2021 10:43 PM STAFF FORESTER Silviano Huddleston ESCROW CLERK LAB BLOOD ORDERABLES Final Result Performing Organization Address [facility] de Phone Number HENRIK [address] [place] [address] * (ABNORMAL) Troponin T high-sensitivity series (baseline, 2hr, 4hr, 6hr) (05/01/2021 10:19 PM STAFF FORESTER) [facility] Trop T hs 5,852(C) <=22 ng/L [facility] Comment: Critical Result called to and read back by Elena Calhoun, DATE: 2021-05-01 23:24:37 BY: [place] Interpretive Data For further hscTnT resources including the diagnostic algorithm and an aid in interpretation, copy and paste this link: [email or web address] Current Interpretive Data last revised 2020. Blood 05/01/2021 10:1 9 PM STAFF FORESTER 05/01/2021 10:43 PM STAFF FORESTER Nalini Clayton MD LAB BLOOD ORDERABLES Final Resul t Performing Organization Address City/[facility]/ZIP Co de Phone Number [facility] [address] [place] [address] * POCT glucose (05/01/2021 9:42 PM STAFF FORESTER) Glucose, POC 182 70 - 199 mg/dL [facility] Blood 05/01/2021 9:42 PM STAFF FORESTER 05/01/2021 9:42 PM STAFF FORESTER us Nalini Clayton MD LAB POCT ORDERABLES - DEVICE Fin al Result [facility] [id number] [place] [address] * XR Chest 1 Vw Portable (05/01/2021 8:28 PM STAFF FORESTER) Anatomical Region Laterality Modality Body, Chest N/A Computed Radiogr aphy 05/02/2021 5:02 AM STAFF FORESTER Impressions 05/02/2021 5:02 AM STAFF FORESTER Mixed reticular and alveolar opacities are demonstrated in all lung lobes but demonstrate an upper lobe and perihilar predominance. Findings may represent pulmonary edema on background of centrilobular emphysematous changes. ?? Electronically signed by: Richard Lopez II, D.O. Narrative 05/02/2021 5:02 AM STAFF FORESTER EXAMINATION: XR CHEST 1 VIEW DATE: 05/01/2021 8:15 PM INDICATION: Hypoxia. COMPARISON: None. FINDINGS: No pneumothorax. ??No pleural effusion. ??Mixed reticular and alveolar opacities are demonstrated in all lung lobes but demonstrate an upper lobe and perihilar predominance. ??Findings may represent pulmonary edema on background of centrilobular emphysematous changes. Underlying infectious process not entirely excludable. ??Cardiac mediastinal silhouette is stable in appearance. ??No acute osseous abnormality. Procedure Note Richard Lopez II, - 05/02/2021 EXAMINATION: XR CHEST 1 VIEW DATE: 05/01/2021 8:15 PM INDICATION: Hypoxia. COMPARISON: None. FINDINGS: No pneumothorax. No pleural effusion. Mixed reticular and alveolar opacities are demonstrated in all lung lobes but demonstrate an upper lobe and perihilar predominance. Findings may represent pulmonary edema on background of centrilobular emphysematous changes. Underlying infectious process not entirely excludable. Cardiac mediastinal silhouette is stable in appearance. No acute osseous abnormality. IMPRESSION: Mixed reticular and alveolar opacities are demonstrated in all lung lobes but demonstrate an upper lobe and perihilar predominance. Findings may represent pulmonary edema on background of centrilobular emphysematous changes. Electronically signed by: Richard Lopez II, D.O. Wally Aguilar DO IMG XR PROCEDURES Final Result * Critical Care (05/01/2021 8:15 PM STAFF FORESTER) Narrative Wally Aguilar DO - 05/01/2021 8:15 PM STAFF FORESTER Wally Aguilar, DO ? 05/01/2021 ??9:50 PM Critical Care Performed by: Wally Aguilar DO Authorized by: Wally Aguilar DO CRITICAL CARE: ??Team: ??[facility] ??Shift: ??PM ??Level of Billing: ??Critical Care ??My time spent with this patient was 110 minutes: Critical Provider Statement: I have seen and examined the patient on this day of service. I have reviewed and confirmed the history, physical exam, laboratory and radiologic data as documented in the signed ICU note. I have reviewed and discussed my treatment plan with the ICU team and other medical/environmental remediation consultant staff, making frequent assessments and decisions regarding this patient's complex medical care. Critical Care time was exclusive of time spent performing separately billed procedures, treating other patients, and teaching. This time was in addition to and separate from critical care provided by other practitioners in my group on this day of service. Critical Care was necessary to treat or prevent imminent or life-threatening deterioration of the following conditions: ? Acute pain/acute postoperative pain ?? ST-Elevation myocardial infarction (STEMI) ?? Atelectasis and Pulmonary edema ??This time was spent by me doing the following: ? Serial bedside patient exams ?? Frequent neurologic exams ?? Serial neurovascular exams ?? IABP management ?? Active and frequent reassessment of respiratory status and oxygen requirements and Incentive spirometry, pulmonary toilet ?? Active and frequent monitoring of intake/output and volumen status ?? Initiation/monitoring/titration of anticoagulants ?? I spent time reviewing and interpreting data from bedside monitors, laboratory results, and imaging, I spent time discussing the management of this critically ill patient with consultants and the medical staff and I spent time documenting in the medical record Wally Alejandro Olmedosch DO IN CLINIC/BEDSIDE ORDER REJI Final Result * POCT glucose (05/01/2021 7:10 PM STAFF FORESTER) Glucose, POC 176 70 - 199 mg/dL [facility] Blood 05/01/2021 7:10 PM STAFF FORESTER 05/01/2021 7:10 PM STAFF FORESTER Nalini Clayton MD LAB POCT ORDERABLES - DEVICE Fin al Result Performing Organization Address [facility] Co de Phone Number [facility] [id number] [facility] [place] [address] * Check Sample (04/30/2021 10:19 PM STAFF FORESTER) ABO Rh A Positive [facility] OTHER 04/30/2021 10:1 9 PM STAFF FORESTER 05/02/2021 1:00 AM STAFF FORESTER Nalini Clayton MD LAB BLOOD ORDERABLES Final Resul t Performing Organization Address [facility] Phone Number [facility] [address] [facility] [place] [address] documented in this encounter Visit Diagnoses Not on filedocumented in this encounter Admitting Diagnoses Diagnosis ST elevation myocardial infarction (STEMI) ([facility]) Acute myocardial infarction, unspecified site, episode of care unspecified documented in this encounter Administered Medications Inactive Administered Medications - up to 3 most recent administrations Medication Order MAR Action Action Date Dose Rate Site acetaminophen (TYLENOL) tablet 650 mg 650 mg, oral, Every 6 hours PRN, 1st line for pain, Starting on 05/09/21 at 0915 Given 05/29/2021 2:29 PM STAFF FORESTER 650 mg Given 05/21/2021 3:45 PM STAFF FORESTER 650 mg Given 05/21/2021 8:11 AM STAFF FORESTER 650 mg al & mag hydroxide kculzffugpw-npksvcwtbqgwxbx-bdvuunjpc-nystatin (MAGIC MOUTHWASH) suspension 1-1-1-1 20 mL, swish & spit, Every 4 hours PRN, pain, Starting on Tue05/17/21 at 2116 albuterol HFA (PROVENTIL HFA,VENTOLIN HFA,PROAIR HFA) 90 mcg/actuation inhaler 8 puff 8 puff, inhalation, Every 4 hours PRN (sales correspondence clerk), wheezing, Starting on Tue06/03/21 at 1315 aspirin enteric coated tablet 81 mg 81 mg, oral, Daily, First dose on Tue05/12/21 at 0900, Do not crush, chew, cut, dissolve, open or otherwise manipulate tablet/capsule. Given 06/03/2021 8:11 AM STAFF FORESTER 81 mg Given 06/02/2021 9:07 AM STAFF FORESTER 81 mg Given 06/01/2021 9:01 AM STAFF FORESTER 81 mg atorvastatin (LIPITOR) tablet 80 mg 80 mg, oral, Nightly, First dose (after last modification) on Tue05/07/21 at 2100 Given 06/02/2021 8:35 PM STAFF FORESTER 80 mg Given 06/01/2021 9:11 PM STAFF FORESTER 80 mg Given 05/31/2021 9:49 PM STAFF FORESTER 80 mg carvediloL (COREG) tablet 3.125 mg 3.125 mg, oral, 2 times daily with meals (bkfst, dinner), First dose on Kristina 05/28/21 at 1800 Given 06/03/2021 8:11 AM STAFF FORESTER 3.125 mg Given 06/02/2021 5:58 PM STAFF FORESTER 3.125 mg Given 06/02/2021 9:14 AM STAFF FORESTER 3.125 mg cefepime (MAXIPIME) 2,000 mg in sodium chloride 0.9% 100 mL IVPB 2,000 mg, intravenous, at 200 mL/hr, Administer over 30 Minutes, Every 12 hours, First dose (after last modification) on 05/30/21 at 1730, Renally dose adjusted per pharmacy protocol for CrCl > 60 mL/min Mini-Bag Plus bag, Indications: Pneumonia, Hospital AcquiredIndications:Pneumonia, Hospital Acquired New Bag 06/03/2021 6:03 AM STAFF FORESTER 2,000 mg 200 mL/hr New Bag 06/02/2021 5:07 PM STAFF FORESTER 2,000 mg 200 mL/hr New Bag 06/02/2021 5:24 AM STAFF FORESTER 2,000 mg 200 mL/hr clopidogreL (PLAVIX) tablet 75 mg 75 mg, oral, Daily, First dose on Kristina 05/28/21 at 1145 Given 06/03/2021 8:11 AM STAFF FORESTER 75 mg Given 06/02/2021 9:07 AM STAFF FORESTER 75 mg Given 06/01/2021 9:01 AM STAFF FORESTER 75 mg dapagliflozin (FARXIGA) tablet 10 mg 10 mg, oral, Daily, First dose on 05/23/21 at 1245, Indications: heart failure with reduced ejection fractionIndications:heart failure with reduced ejection fraction Given 06/03/2021 8:11 AM STAFF FORESTER 10 mg Given 06/02/2021 1:46 PM STAFF FORESTER 10 mg Given 06/01/2021 9:01 AM STAFF FORESTER 10 mg dextrose (D10W) 10% bolus 250 mL 250 mL, intravenous, at 1,000 mL/hr, Administer over 15 Minutes, Every 15 min PRN, blood glucose less than 70 mg/dL and UNABLE to swallow/take PO glucose/juice., Starting on 05/23/21 at 1318, After treatment for hypoglycemia, recheck BG followed by treatment every 15 minutes until the BG is greater than 100 mg/dL. Then check BG 1 hour post treatment. If BG is less than 100 mg/dL, repeat Q15 minute BG checks and treatment. Call MD for each episode of hypoglycemia., Indications: hypoglycemic disorderIndications:hypoglycemi c disorder dextrose oral liquid liquid 15 g 15 g, oral, Every 15 min PRN, low blood sugar, blood glucose less than 70 mg/dL, Starting on 05/11/21 at 1134, If patient is alert and able to [...] for each episode of hypoglycemia., Indications: hypoglycemic disorderIndications:hypoglycemi c disorder dextrose oral liquid liquid 15 g 15 g, oral, Every 15 min PRN, low blood sugar, blood glucose less than 70 mg/dL, Starting on 05/23/21 at 1318, If patient is alert and able to [...] for each episode of hypoglycemia., Indications: hypoglycemic disorderIndications:hypoglycemi c disorder enoxaparin (LOVENOX) syringe 40 mg 40 mg, subcutaneous, Daily (for enoxaparin), First dose on Kristina 05/07/21 at 2100, Indications: Deep Vein Thrombosis PreventionIndications:Deep Vein Thrombosis Prevention Given 06/01/2021 9:12 PM STAFF FORESTER 40 mg Left Lower Abdomen Given 05/31/2021 10:00 PM STAFF FORESTER 40 mg L eft Lower Abdomen Given 05/30/2021 9:13 PM STAFF FORESTER 40 mg Le ft Lower Abdomen glucagon injection 1 mg 1 mg, intramuscular, Every 30 min PRN, low blood sugar, blood glucose less than 70 mg/dL AND no IV access AND unable to take PO glucose/juice., Starting on 05/23/21 at 1318, After Glucagon is administered, position patient on [...] 1 mL SWFI. Use immediately following reconstitution. guaiFENesin (ROBITUSSIN) 20 mg/mL oral liquid 200 mg 200 mg, oral, 4 times daily PRN, cough, Starting on Tue05/19/21 at 1739 Given 05/25/2021 11:53 PM STAFF FORESTER 200 mg Given 05/21/2021 8:10 AM STAFF FORESTER 200 mg Given 05/20/2021 5:06 PM STAFF FORESTER 200 mg insulin lispro (HumaLOG, ADMELOG) 100 unit/mL injection 0-10 Units 0-10 Units, subcutaneous, 3 times daily with meals, First dose (after last modification) on 05/23/21 at 1400, Blood glucose mg/dL: 149 or less: No insulin 150-199: add 2 unit 200-249: add 4 units 250-299: add 6 units 300-349: add 8 units and notify physician for adjustment of insulin orders. 350-399: add 10 units and notify physician for adjustment of insulin orders. Over 400: Notify physician for adjustment of insulin orders. Do NOT hold for NPO Status, Indications: Diabetes MellitusIndications:Diabetes Mellitus Given 06/03/2021 12:22 PM STAFF FORESTER 4 Units Righ t Upper Arm Given 06/03/2021 8:13 AM STAFF FORESTER 4 Units Le ft Lower Abdomen Given 06/02/2021 5:07 PM STAFF FORESTER 6 Units Ri ght Lower Abdomen insulin lispro (HumaLOG, ADMELOG) 100 unit/mL injection 0-5 Units 0-5 Units, subcutaneous, Nightly, First dose on 05/23/21 at 2100, Blood glucose mg/dL: 149 or less: No insulin 150-199: add 1 unit 200-249: add 2 units 250-299: add 3 units 300-349: add 4 units and notify physician for adjustment of insulin orders. 350-399: add 5 units and notify physician for adjustment of insulin orders. Over 400: Notify physician for adjustment of insulin orders. Do NOT hold for NPO Status, Indications: Diabetes MellitusIndications:Diabetes Mellitus Given 06/02/2021 8:44 PM STAFF FORESTER 1 Units Left Upper Arm Given 06/01/2021 9:22 PM STAFF FORESTER 1 Units Le ft Lower Abdomen Given 05/31/2021 10:00 PM STAFF FORESTER 1 Units L eft Lower Abdomen midodrine (PROAMATINE) tablet 15 mg 15 mg, oral, 3 times daily, First dose (after last modification) on Tue05/22/21 at 1500, Indications: Symptomatic Orthostatic HypotensionIndications:Symptomatic Orthostatic Hypotension Given 06/03/2021 8:11 AM STAFF FORESTER 15 mg Given 06/02/2021 11:58 PM STAFF FORESTER 15 mg Given 06/02/2021 3:09 PM STAFF FORESTER [address] (PROTONIX) extended release tablet 40 mg 40 mg, oral, Daily, First dose on Kristina 05/07/21 at 0900, Do not crush, chew, cut, dissolve, open or otherwise manipulate tablet/capsule., Indications: Stress Ulcer ProphylaxisIndications:Stress Ulcer Prophylaxis Given 06/03/2021 8:28 AM STAFF FORESTER 40 mg Given 06/02/2021 9:07 AM STAFF FORESTER 40 mg Given 06/01/2021 9:01 AM STAFF FORESTER 40 mg polyethylene glycol (MIRALAX) packet 17 g 17 g, oral, Every 12 hours, First dose (after last modification) on Tue05/29/21 at 1015, Dissolve in 8 ounces of fluid, Indications: constipationIndications:constipation Given 06/02/2021 9:08 AM STAFF FORESTER 17 g Given 06/01/2021 9:10 PM STAFF FORESTER 17 g Given 06/01/2021 9:02 AM STAFF FORESTER 17 g QUEtiapine (SEROquel) tablet 50 mg 50 mg, oral, Nightly, First dose (after last modification) on Tue05/22/21 at 2100 Given 06/02/2021 8:35 PM STAFF FORESTER 50 mg Given 06/01/2021 9:11 PM STAFF FORESTER 50 mg Given 05/31/2021 9:49 PM STAFF FORESTER 50 mg senna-docusate (PERICOLACE) 8.6-50 mg per tablet 2 tablet 2 tablet, oral, Every 12 hours, First dose on Tue05/29/21 at 1015 Given 06/02/2021 9:07 AM STAFF FORESTER 2 tablets Given 06/01/2021 9:10 PM STAFF FORESTER 2 tablets Given 06/01/2021 9:01 AM STAFF FORESTER 2 tablets sodium bicarbonate tablet 1,300 mg 1,300 mg, oral, 2 times daily, First dose (after last modification) on Tue05/29/21 at 0900 Given 06/03/2021 8:12 AM STAFF FORESTER 1,300 mg Given 06/02/2021 8:35 PM STAFF FORESTER 1,300 mg Given 06/02/2021 9:07 AM STAFF FORESTER 1,300 mg sodium chloride 0.9% flush 0.5-20 mL 0.5-20 mL, intra-catheter, Every 8 hours scheduled, First dose on Tue05/04/21 at 2200, Flush volume based on line type and size. , Indications: FlushingIndications:Flushing Given 06/03/2021 6:08 AM STAFF FORESTER 10 mL Given 06/02/2021 8:38 PM STAFF FORESTER 10 mL Given 06/02/2021 3:10 PM STAFF FORESTER 10 mL sterile water irrigation As needed, Starting on Kristina 05/14/21 at 1240, Intra-Op Given 05/14/2021 12:40 PM STAFF FORESTER 3,000 mL Surgical Site Given 05/14/2021 12:37 PM STAFF FORESTER 3,000 mL S urgical Site vancomycin (VANCOCIN) 1,750 mg in sodium chloride 0.9% 500 mL IVPB 1,750 mg, intravenous, at 258.8 mL/hr, Administer over 120 Minutes, Every 12 hours, First dose (after last modification) on 05/30/21 at 0600, For 10 doses, Indications: Pneumonia, Hospital AcquiredIndications:Pneumonia, Hospital Acquired New Bag 06/03/2021 6:03 AM STAFF FORESTER 1,750 mg 258.8 mL/hr New Bag 06/02/2021 5:58 PM STAFF FORESTER 1,750 mg 258.8 mL/hr New Bag 06/02/2021 6:13 AM STAFF FORESTER 1,750 mg 258.8 mL/hr documented in this encounter Discontinued Medications Medication Sig Discontinue Reason Start Date End Da te carvedilol (COREG) 6.25 mg tablet TAKE 1 TABLET (6.25MG) BY ORAL ROUTE 2 TIMES EVERY DAY WITH FOOD Other 04/13/2012 06/01/2021 aspirin 325 mg tablet take 1 Tablet (325MG) by oral route every day Stop Taking at Discharge 04/13/2012 06/03/2021 lisinopril (PRINIVIL,ZESTRIL) 10 mg tablet take 1 Tablet (10MG) by oral route every day Stop Taking at Discharge 04/13/2012 06/03/2021 prasugrel (EFFIENT) tablet take 1 tablet (10MG) by oral route every day Stop Taking at Discharge 04/13/2012 06/03/2021 cefdinir (OMNICEF) 300 mg capsule Stop Taking at Discharge 05/01/2021 06/03/2021 carvediloL (COREG) 12.5 mg tablet Stop Taking at Discharge 03/13/2021 06/03/2021 documented as of this encounter Historical Medications * This list may reflect changes made after this encounter. Medication Sig Dispense Quantity Refills Last Filled Start D ate End Date carvediloL (COREG) 12.5 mg tablet 03/13/2021 06/03/2021 phenazopyridine (PYRIDIUM) 100 mg tablet 05/01/2021 07/28/2021 cefdinir (OMNICEF) 300 mg capsule 05/01/2021 06/03/2021 added in this encounter Active and Recently Administered Medications Times are shown in STAFF FORESTER. 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), First dose on Tue05/20/21 at 2200 0813 (Given - Provider: Tish Thomas, SALESFORCE ADMINISTRATOR)1350 (Given - Provider: Tish Thomas SALESFORCE ADMINISTRATOR)1711 (Not Given - Provider: Rosalva Henry SALESFORCE ADMINISTRATOR - Reason: Patient/family refused)2119 (Given - Provider: Opal Dillon, SALESFORCE ADMINISTRATOR) 1014 (Given - Provider: Jayson Underwood SALESFORCE ADMINISTRATOR)1258 (Not Given - Provider: Jayson Underwood RRT - Reason: Other - Comment: recently given) albuterol HFA (PROVENTIL HFA,VENTOLIN HFA,PROAIR HFA) 90 mcg/actuation inhaler 8 puff (CANCELED) 8 puff, inhalation, 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 0901 (Given - Provider: Suzie Meza RN) 0907 (Given - Provider: Regina Regalado, DEEPIKA) 0811 (Given - Provider: Inna Sorto, DEEPIKA) atorvastatin (LIPITOR) tablet 80 mg 80 mg, oral, Nightly, First dose (after last modification) on Tue05/07/21 at 2100 2111 (Given - Provider: Ellen Drummond RN) 2034 (Given - Provider: Azucena Hsu, DEEPIKA) carvediloL (COREG) tablet 3.125 mg 3.125 mg, oral, 2 times daily with meals (bkfst, dinner), First dose on Kristina 05/28/21 at 1800 0901 (Given - Provider: Suzie Meza RN)1740 (Given - Provider: Suzie Meza RN) 0914 (Given - Provider: Regina Regalado RN)1758 (Given - Provider: Regina Regalado RN) 0811 (Given - Provider: Inna Sorto, DEEPIKA) cefepime (MAXIPIME) 2,000 mg in sodium chloride 0.9% 100 mL IVPB 2,000 mg, intravenous, at 200 mL/hr, Administer over 30 Minutes, Every 12 hours, First dose (after last modification) on 05/30/21 at 1730, Renally dose adjusted per pharmacy protocol for CrCl > 60 mL/min Mini-Bag Plus bag, Indications: Pneumonia, Hospital Acquired 0525 (New Bag - Provider: Ellen Drummond RN)1739 (New Bag - Provider: Suzie Meza RN) 0524 (New Bag - Provider: Ellen Drummond RN)1707 (New Bag - Provider: Regina Regalado RN) 0603 (New Bag - Provider: Azucena Hsu RN) clopidogreL (PLAVIX) tablet 75 mg 75 mg, oral, Daily, First dose on Kristina 05/28/21 at 1145 0901 (Given - Provider: Suzie Meza RN) 0907 (Given - Provider: Regina Regalado RN) 0811 (Given - Provider: Inna Sorto, DEEPIKA) dapagliflozin (FARXIGA) tablet 10 mg 10 mg, oral, Daily, First dose on 05/23/21 at 1245, Indications: heart failure with reduced ejection fraction 0901 (Given - Provider: Suzie Meza RN) 1346 (Given - Provider: Regina Regalado, DEEPIKA) 0811 (Given - Provider: Inna Sorto, DEEPIKA) enoxaparin (LOVENOX) syringe 40 mg 40 mg, subcutaneous, Daily (for enoxaparin), First dose on Kristina 05/07/21 at 2100, Indications: Deep Vein Thrombosis Prevention 2111 (Given - Provider: Ellen Drummond RN) 2034 (Not Given - Provider: Azucena Hsu RN - Reason: Patient/family refused) insulin lispro (HumaLOG, ADMELOG) 100 unit/mL injection 0-10 Units 0-10 Units, subcutaneous, 3 times daily with meals, First dose (after last modification) on 05/23/21 at 1400, Blood glucose mg/dL: 149 or less: No insulin 150-199: add 2 unit 200-249: add 4 units 250-299: add 6 units 300-349: add 8 units and notify physician for adjustment of insulin orders. 350-399: add 10 units and notify physician for adjustment of insulin orders. Over 400: Notify physician for adjustment of insulin orders. Do NOT hold for NPO Status, Indications: Diabetes Mellitus 0756 (Not Given - Provider: Suzie Meza RN - Reason: Order parameters not met)1147 (Given - Provider: Suzie Meza RN)1739 (Given - Provider: Suzie Meza RN) 0915 (Not Given - Provider: Regina Regalado RN - Reason: Order parameters not met)1147 (Given - Provider: Regina Regalado RN)1707 (Given - Provider: Regina Regalado RN) 0813 (Given - Provider: Inna Sorto, DEEPIKA)1222 (Given - Provider: Inna Sorto RN) insulin lispro (HumaLOG, ADMELOG) 100 unit/mL injection 0-5 Units 0-5 Units, subcutaneous, Nightly, First dose on 05/23/21 at 2100, Blood glucose mg/dL: 149 or [...] hold for NPO Status, Indications: Diabetes Mellitus 2121 (Given - Provider: Ellen Drummond RN) 2043 (Given - Provider: Azucena Hsu, DEEPIKA) magnesium sulfate 2 g/50 mL in water (premix) 2 g (COMPLETED) 2 g, intravenous, Administer over 60 Minutes, Once, On Tue06/02/21 at 1045, For 1 dose 1138 (New Bag - Provider: Regina Regalado RN) magnesium sulfate 2 g/50 mL in water (premix) 2 g (COMPLETED) 2 g, intravenous, Administer over 60 Minutes, Once, On Tue06/03/21 at 1045, For 1 dose 1101 (New Bag - Provider: Inna Sorto RN) midodrine (PROAMATINE) tablet 15 mg 15 mg, oral, 3 times daily, First dose (after last modification) on Tue05/22/21 at 1500, Indications: Symptomatic Orthostatic Hypotension 0900 (Given - Provider: Suzie Meza RN)1438 (Given - Provider: Suzie Meza RN)2110 (Given - Provider: Ellen Drummond RN) 0907 (Given - Provider: Regina Regalado RN)1509 (Given - Provider: Regina Regalado RN)2358 (Given - Provider: Azucena Hsu RN) 0811 (Given - Provider: Inna Sorto RN)1500 (Due) pantoprazole DR (PROTONIX) extended release tablet 40 mg 40 mg, oral, Daily, First dose on Tue05/07/21 at 0900, Do not crush, chew, cut, dissolve, open or otherwise manipulate tablet/capsule., Indications: Stress Ulcer Prophylaxis 0901 (Given - Provider: Suzie Meza RN) 0907 (Given - Provider: Regina Regalado RN) 0828 (Given - Provider: Inna Sorto RN) polyethylene glycol (MIRALAX) packet 17 g 17 g, oral, Every 12 hours, First dose (after last modification) on Tue05/29/21 at 1015, Dissolve in 8 ounces of fluid, Indications: constipation 0902 (Given - Provider: Suzie Meza RN)211 (Given - Provider: Ellen Drummond RN) 0908 (Given - Provider: Regina Regalado RN)2035 (Not Given - Provider: Azucena Hsu RN - Reason: Patient/family refused) 1052 (Not Given - Provider: Inna Sorto RN - Reason: Patient/family refused) QUEtiapine (SEROquel) tablet 50 mg 50 mg, oral, Nightly, First dose (after last modification) on Tue05/22/21 at 2100 2111 (Given - Provider: Ellen Drummond RN) 2034 (Given - Provider: Azucena Hsu RN) senna-docusate (PERICOLACE) 8.6-50 mg per tablet 2 tablet 2 tablet, oral, Every 12 hours, First dose on Tue05/29/21 at 1015 0901 (Given - Provider: Suzie Meza RN)2109 (Given - Provider: Ellen Drummond RN) 09 (Given - Provider: Regina Regalado RN)2033 (Not Given - Provider: Azucena Hsu RN - Reason: Patient/family refused) 1053 (Not Given - Provider: Inna Sorto RN - Reason: Patient/family refused) sodium bicarbonate tablet 1,300 mg 1,300 mg, oral, 2 times daily, First dose (after last modification) on Tue05/29/21 at 0900 0901 (Given - Provider: Suzie Meza RN)2109 (Given - Provider: Ellen Drummond RN) 09 (Given - Provider: Regina Regalado RN)2034 (Given - Provider: Azucena Hsu RN) 0812 (Given - Provider: Inna Sorto RN) sodium chloride 0.9% flush 0.5-20 mL 0.5-20 mL, intra-catheter, Every 8 hours scheduled, First dose on Tue05/04/21 at 2200, Flush volume based on line type and size. , Indications: Flushing 0526 (Given - Provider: Ellen Drummond RN)1415 (Not Given - Provider: Suzie Meza RN - Reason: Other)220 (Given - Provider: Ellen Drummond RN) 0533 (Given - Provider: Ellen Drummond RN)1510 (Given - Provider: Regina Regalado RN)203 (Given - Provider: Azucena Hsu RN) 0608 (Given - Provider: Azucena Hsu RN)1400 (Due) vancomycin (VANCOCIN) 1,750 mg in sodium chloride 0.9% 500 mL IVPB 1,750 mg, intravenous, at 258.8 mL/hr, Administer over 120 Minutes, Every 12 hours, First dose (after last modification) on 05/30/21 at 0600, For 10 doses, Indications: Pneumonia, Hospital Acquired 0645 (New Bag - Provider: Ellen Drummond RN)1842 (New Bag - Provider: Suzie Meza, DEEPIKA) 0613 (New Bag - Provider: Ellen Drummond RN)1758 (New Bag - Provider: Regina Regalado, DEEPIKA) 0603 (New Bag - Provider: Azucena Hsu RN) PRN Medication Order 06/01/2021 06/02/2021 06/03/2021 acetaminophen (TYLENOL) tablet 650 mg 650 mg, oral, Every 6 hours PRN, 1st line for pain, Starting on 05/09/21 at 0915 al & mag hydroxide jmcgbriwrzn-myihktyatbcmmmu-teiweaxmx-nystatin (MAGIC MOUTHWASH) suspension 1-1-1-1 20 mL, swish & spit, Every 4 hours PRN, pain, Starting on Tue05/17/21 at 2116 albuterol HFA (PROVENTIL HFA,VENTOLIN HFA,PROAIR HFA) 90 mcg/actuation inhaler 8 puff 8 puff, inhalation, 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 Then check BG 1 hour post treatment. If BG is less than 100 mg/dL, repeat Q15 minute BG checks and treatment. Call MD for each episode of hypoglycemia., Indications: hypoglycemic disorder dextrose oral liquid liquid 15 g(Linked Group 2) 15 g, oral, Every 15 min PRN, low blood sugar, blood glucose less than 70 mg/dL, Starting on 05/11/21 at 1134, If patient is alert and able to [...] episode of hypoglycemia., Indications: hypoglycemic disorder dextrose oral liquid liquid 15 g(Linked Group 1) 15 g, oral, Every 15 min PRN, low blood sugar, blood glucose less than 70 mg/dL, Starting on 05/23/21 at 1318, If patient is alert and able to [...] each episode of hypoglycemia., Indications: hypoglycemic disorder glucagon injection 1 mg 1 mg, intramuscular, Every 30 min PRN, low blood sugar, blood glucose less than 70 mg/dL AND no IV access AND unable to take PO glucose/juice., Starting on 05/23/21 at 1318, After Glucagon is administered, position patient on [...] 1 mL SWFI. Use immediately following reconstitution. guaiFENesin (ROBITUSSIN) 20 mg/mL oral liquid 200 mg 200 mg, oral, 4 times daily PRN, cough, Starting on Tu05/19/21 at 1739 ondansetron (ZOFRAN) injection 4 mg 4 mg, intravenous, Administer over 2 Minutes, Every 6 hours PRN, nausea, vomiting, Starting on 05/02/21 at 1021 Linked Groups Order Group 1: dextrose oral liquid liquid 15 gJump to med 15 g, oral, Every 15 min PRN, low blood sugar, blood glucose less than 70 mg/dL, Starting on 05/23/21 at 1318, If patient is alert and able to [...] each episode of hypoglycemia., Indications: hypoglycemic disorder Or dextrose (D10W) 10% bolus 250 mLJump to med 250 mL, intravenous, at 1,000 mL/hr, Administer over 15 Minutes, Every 15 min PRN, blood glucose less than 70 mg/dL and UNABLE to swallow/take PO glucose/juice., Starting on 05/23/21 at 1318, After treatment for hypoglycemia, recheck BG followed by treatment every 15 minutes until the BG is greater than 100 mg/dL. Then check BG 1 hour post treatment. If BG is less than 100 mg/dL, repeat Q15 minute BG checks and treatment. Call MD for each episode of hypoglycemia., Indications: hypoglycemic disorder Group 2: dextrose oral liquid liquid 15 gJump to med 15 g, oral, Every 15 min PRN, low blood sugar, blood glucose less than 70 mg/dL, Starting on 05/11/21 at 1134, If patient is alert and able to [...] each episode of hypoglycemia., Indications: hypoglycemic disorder Or dextrose (D10W) 10% bolus 250 mL (CANCELED) 250 mL, intravenous, at 1,000 mL/hr, Administer over 15 Minutes, Every 15 min PRN, blood glucose less than 70 mg/dL and UNABLE to swallow/take PO glucose/juice., Starting on 05/11/21 at 1134, After treatment for hypoglycemia, recheck BG followed by treatment every 15 minutes until the BG is greater than 100 mg/dL. Then check BG 1 hour post treatment. If BG is less than 100 mg/dL, repeat Q15 minute BG checks and treatment. Call MD for each episode of hypoglycemia., Indications: hypoglycemic disorder documented in this encounter Orders Medications Ordered That Hunter ht Not Have Been Administered Count Last Ordered Date First Ordered Date albuterol HFA (PROVENTIL HFA ,VENTOLIN HFA,PROAIR HFA) 90 mcg/actuation inhaler 8 puff 3 06/03/2021 05/20/2021 magnesium sulfate 2 g/50 mL in water (premix) 2 g 11 06/03/2021 05/04/2021 sodium chloride 0.9% 0.9% in fusion - ADS Override Pull 4 05/31/2021 05/06/2021 cefepime (MAXIPIME) 2,000 mg in sodium chloride 0.9% 100 mL IVPB 3 05/30/2021 05/26/2021 lisinopriL (PRINIVIL,ZESTRIL) tablet 5 mg 2 05/29/2021 05/28/2021 polyethylene glycol (MIRALAX) packet 17 g 4 05/29/2021 05/07/2021 senna-docusate (PERICOLACE) 8.6-50 mg per tablet 2 tablet 1 05/29/2021 vancomycin (VANCOCIN) 1,750 mg in sodium chloride 0.9% 500 mL IVPB 1 05/29/2021 calcium gluconate 2 g/100 mL in sodium chloride (premix) solution 2 g 6 05/28/2021 carvediloL (COREG) tablet 3.125 mg 1 2020 clopidogreL (PLAVIX) tablet 75 mg 3 021 05/06/2021 dextrose 10% infusion 2 05/28/20212020 insulin NPH (HumuLIN N, Julio MAK N) 100 unit/mL injection 4 Units 1 05/28/2021 magnesium sulfate 4 g/100 mL in water (premix) 4 g 4 05/28/2021 05/04/2021 sodium bicarbonate tablet 1,300 mg 1 2020 sodium phosphate - potassium phosphate (K-PHOS NEUTRAL) tablet 500 mg 1 05/28/2021 vancomycin 1500 mg/250 mL in sodium chloride 0.9% (premix) 1,500 mg 2 05/28/2021 05/04/20 21 calcium carbonate (TUMS) kalyan wable tablet 500 mg 1 05/27/2021 sodium bicarbonate tablet 650 mg 1 05/27/20 21 calcium carbonate (TUMS) kalyan wable tablet 1,000 mg 1 05/26/2021 cefepime (MAXIPIME) 1,000 mg in sodium chloride 0.9% 100 mL IVPB 3 05/26/2021 05/04/2021 insulin NPH (HumuLIN N, Julio MAK N) 100 unit/mL injection 6 Units 1 05/26/2021 vancomycin (VANCOCIN) 1,250 mg in sodium chloride 0.9% 250 mL IVPB 1 05/26/2021 vancomycin (VANCOCIN) 2,000 mg in sodium chloride 0.9% 500 mL IVPB 1 05/26/2021 baricitinib (OLUMIANT) tablet EUA 4 mg 1 insulin NPH (HumuLIN N, Julio MAK N) 100 unit/mL injection 10 Units 5 05/25/2021 05/20/2021 ioversoL (OPTIRAY 350) syrin ge syringe 100 mL 1 05/25/2021 lidocaine (LIDODERM) 5 % patch 1 patch 1 dapagliflozin (FARXIGA) tablet 10 mg 1 09/2020 dextrose (D10W) 10% bolus 1-500 mL 3 202005/17/2021 dextrose (D10W) 10% bolus 250 mL 3 05/23/20 21 05/01/2021 dextrose 5% infusion 1 05/23/2021 dextrose oral liquid liquid 15 g 3 05/23/20 21 05/01/2021 furosemide (LASIX) 10 mg/mL injection 40 mg 6 05/23/2021 05/05/2021 glucagon injection 1 mg 3 05/23/202104/20 insulin glargine (LANTUS, SE MGLEE) 100 unit/mL injection 20 Units 2 05/23/2021 05/11/2021 insulin lispro (HumaLOG, ADM ELOG) 100 unit/mL injection 0-10 Units 3 05/23/2021 05/11/2021 insulin lispro (HumaLOG, ADM ELOG) 100 unit/mL injection 0-5 Units 4 05/23/2021 05/01/2021 insulin lispro (HumaLOG, ADM ELOG) 100 unit/mL injection 7 Units 2 05/23/2021 05/11/2021 insulin NPH (HumuLIN N, Julio MAK N) 100 unit/mL injection 8 Units 3 05/23/2021 05/20/2021 insulin regular bolus from bag 1-10 Units 3 05/23/2021 05/17/2021 insulin regular in 0.9% sodi um chloride 100 units/100 mL infusion (premix) 3 05/23/202105/17 ivabradine (CORLANOR) tablet 5 mg 2 021 05/19/2021 potassium chloride (KLOR-CON ) packet 40 mEq 5 05/23/2021 05/17/2021 potassium chloride ER (KLOR- CON) extended release tablet 40 mEq 9 05/23/2021 05/02/2021 sodium chloride 0.45% infusion 1 05/23/2021 spironolactone (ALDACTONE) tablet 25 mg 1 1 07/24/2020 insulin regular (HumuLIN R, NovoLIN R) 100 unit/mL injection 5 Units 2 05/22/2021 05/21/2021 midodrine (PROAMATINE) tablet 15 mg 3 05/2205/18/2021 potassium, sodium phosphates (PHOS-NAK) 280-160-250 mg packet 2 packet 1 05/22/2021 QUEtiapine (SEROquel) tablet 50 mg 3 202005/12/2021 sodium phosphate - potassium phosphate (K-PHOS NEUTRAL) tablet 250 mg 2 05/22/2021 insulin lispro (HumaLOG, ADM ELOG) 100 unit/mL injection 5 Units 1 05/21/2021 potassium chloride ER (KLOR- CON) extended release tablet 30 mEq 2 05/21/2021 05/07/2021 albumin 5 % bottle 25 g 3 05/20/202104/20 insulin NPH (HumuLIN N, Julio MAK N) 100 unit/mL injection 5 Units 2 05/20/2021 05/19/2021 dexAMETHasone (DECADRON) 4 m g/mL injection 6 mg 1 05/19/2021 guaiFENesin (ROBITUSSIN) 20 mg/mL oral liquid 200 mg 1 05/19/2021 ipratropium-albuteroL (DUO-N EB) 0.5-2.5 mg/3 mL nebulizer solution 3 mL 1 05/19/2021 metOLazone (ZAROXOLYN) tablet 10 mg 6 05/1905/07/2021 remdesivir (VEKLURY) 100 mg in sodium chloride 0.9% 250 mL IVPB 1 05/19/2021 remdesivir (VEKLURY) 200 mg in sodium chloride 0.9% 250 mL IVPB 1 05/19/2021 albumin 25 % bottle 12.5 g 1 05/18/2021 albumin 5 % bottle - ADS Override Pull 1 albumin 5 % bottle 12.5 g 2 05/18/2021 cosyntropin (ACTH,CORTISOL) injection 250 mcg 1 05/18/2021 fludrocortisone tablet 0.1 mg 1 05/18/2021 furosemide (LASIX) tablet 40 mg 2 1 05/10/2021 insulin glargine (LANTUS, SE MGLEE) 100 unit/mL injection 8 Units 1 05/18/2021 insulin lispro (HumaLOG, ADM ELOG) 100 unit/mL injection 0-12 Units 1 05/18/2021 norepinephrine in 0.9% sodiu m chloride (LEVOPHED) 8,000 mcg/250 mL (32 mcg/mL) infusion (premix) 3 05/18/2021 05/04/2021 tamsulosin (FLOMAX) extended release capsule 0.4 mg 2 05/18/2021 05/17/2021 tc-99m macroaggregated album in (MAA) injection 5.4 millicurie 1 05/18/2021 al & mag hydroxide rcmxxuonslj-lqwqccgngyazxiu-vnhwwaekn-nyst atin (MAGIC MOUTHWASH) suspension 1-1-1-1 5 05/17/2021 05/08/2021 furosemide (LASIX) 10 mg/mL injection 60 mg 1 05/17/2021 furosemide (LASIX) 200 mg in sodium chloride 0.9% 100 mL (2 mg/mL) infusion 1 05/17/2021 midodrine (PROAMATINE) tablet 10 mg 2 05/17 potassium chloride 20 mEq/50 mL in sterile water (premix) 20 mEq 3 05/17/2021 05/04/2021 potassium chloride 40 mEq/10 0 mL in sterile water (premix) 40 mEq 4 05/17/2021 05/06/2021 QUEtiapine (SEROquel) tablet 25 mg 4 202005/06/2021 insulin lispro (HumaLOG, ADM ELOG) 100 unit/mL injection 10 Units 2 05/16/2021 05/13/2021 acetaminophen (TYLENOL) tablet 650 mg 2 05/09/2021 diphenhydrAMINE (BENADRYL) i njection 12.5 mg 1 05/14/2021 fentaNYL (SUBLIMAZE) preserv ative free injection 50 mcg 3 05/14/2021 05/04/2021 meperidine (DEMEROL) preserv ative free injection 12.5 mg 1 05/14/2021 metoprolol tartrate (LOPRESS OR) immediate release tablet 12.5 mg 3 05/14/2021 05/01/2021 naloxone (NARCAN) 0.4 mg/mL injection 0.04-0.4 mg 1 05/14/2021 ondansetron (ZOFRAN) injection 4 mg 2 05/1405/02/2021 furosemide (LASIX) 10 mg/mL injection 20 mg 1 05/13/2021 insulin glargine (LANTUS, SE MGLEE) 100 unit/mL injection 24 Units 1 05/13/2021 metoprolol XL (TOPROL-XL) ex tended release tablet 12.5 mg 1 05/13/2021 acetaminophen (TYLENOL) tablet 1,000 mg 3 1 07/12/2020 05/01/2021 haloperidol (HALDOL) injection 2 mg 1 05/12 metoprolol tartrate (LOPRESS OR) immediate release tablet 6.25 mg 1 05/12/2021 sodium chloride 0.9% flush 0.5-20 mL 3 04/21 08/2020 05/04/2021 sodium chloride 0.9% infusion 6 05/12/2021 05/01/2021 aspirin enteric coated tablet 81 mg 1 05/11 piperacillin-tazobactam (ZOS YN) 3.375 g in sodium chloride 0.9% 100 mL IVPB 1 05/10/2021 potassium chloride ER (KLOR- CON) extended release tablet 20 mEq 1 05/10/2021 albuterol 2.5 mg /3 mL (0.08 3 %) nebulizer solution 2.5 mg 3 05/09/2021 05/04/2021 ketorolac (TORADOL) injection 30 mg 3 05/0905/05/2021 oxyCODONE (ROXICODONE) tablet 5 mg 3 202005/01/2021 traMADoL (ULTRAM) tablet 50 mg 2 05/09/2021 05/07/2021 guaiFENesin ER (MUCINEX) ext ended release tablet 600 mg 1 05/08/2021 potassium, sodium phosphates (PHOS-NAK) 280-160-250 mg packet 1 packet 1 05/08/2021 atorvastatin (LIPITOR) tablet 80 mg 2 05/0705/01/2021 enoxaparin (LOVENOX) syringe 40 mg 1 2020 cefTRIAXone (ROCEPHIN) 2,000 mg/20 mL in sterile water (premix) 2,000 mg 1 05/06/2021 hydrALAZINE (APRESOLINE) injection 10 mg 1 05/06/2021 oxyCODONE (ROXICODONE) tablet 10 mg 1 05/[address] (PROTONIX) e xtended release tablet 40 mg 2 05/06/2021 05/01/2021 traZODone (DESYREL) tablet 50 mg 2 05/06/20 21 05/02/2021 amiodarone in dextrose (NEXT ERONE) 360 mg/200 mL (1.8 mg/mL) infusion (premix) 1 05/05/2021 dexmedeTOMIDine in 0.9% sodi um chloride (PRECEDEX) 400 mcg/100 mL (4 mcg/mL) infusion (premix) 1 05/05/2021 DOBUTamine in dextrose 5% (D OBUTREX) 1,000 mg/250 mL (4,000 mcg/mL) infusion (premix) 1 05/05/2021 insulin glargine (LANTUS, SE MGLEE) 100 unit/mL injection 10 Units 1 05/05/2021 pantoprazole (PROTONIX) 4 mg /mL injection 40 mg 1 05/05/2021 propofoL (DIPRIVAN) 10 mg/mL IV 1 sodium chloride 0.9% IVPB 0-250 mL 3 202005/02/2021 ceFAZolin (ANCEF) 1 gram/10 mL in sterile water (premix) 1 05/04/2021 ceFAZolin (ANCEF) 1 gram/10 mL in sterile water (premix) 2,000 mg 1 05/04/2021 ceFAZolin (ANCEF) 2,000 mg/1 00 mL in dextrose (premix) 2,000 mg 1 05/04/2021 diazePAM (VALIUM) injection 5 mg 2 05/04/20 docusate (COLACE) 10 mg/mL o ral liquid 100 mg 1 05/04/2021 docusate sodium (COLACE) capsule 100 mg 1 1 07/04/2020 electrolyte-A (PLASMA-LYTE) bolus 1 021 heparin 1,000 unit/mL injection 1 insulin regular (HumuLIN R, NovoLIN R) 100 Units in sodium chloride 0.9% 100 mL (1 Units/mL) infusion 1 05/04/2021 lidocaine (GLYDO) 2 % jelly 200 mg 1 2020 lidocaine jelly (XYLOCAINE) 2 % 100 mg 1 papaverine injection 1 05/04/2021 prochlorperazine (COMPAZINE) injection 10 mg 1 05/04/2021 sodium chloride 0.9 % irriga tion for CBI 3,000 mL 1 05/04/2021 sodium chloride 0.9% irrigation 1 sodium chloride 0.9% irrigation 1,000 mL 1 05/04/2021 sodium chloride 0.9% irrigation 3,000 mL 1 05/04/2021 sodium chloride 0.9% solution 3 05/04/2021 thrombin-recombinant 5,000 u nit topical solution 1 05/04/2021 vancomycin (VANCOCIN) 2,000 mg in sodium chloride 0.9% 2 mL topical solution 1 05/04/2021 vancomycin 1,000 mg/200 mL i n dextrose 5% (premix) 1 g 1 05/04/2021 eptifibatide (INTEGRILIN) 0. 75 mg/mL infusion 3 05/02/2021 05/01/2021 lidocaine (LIDODERM) 5 % patch 2 patch 1 ramelteon (ROZEREM) tablet 8 mg 1 aspirin chewable tablet 324 mg 1 05/01/2021 bivalirudin (ANGIOMAX) 250 m g in sodium chloride 0.9% 50 mL infusion 1 05/01/2021 bivalirudin (ANGIOMAX) injection 1 05/01/20 21 eptifibatide (INTEGRILIN) bolus 1 fentaNYL (SUBLIMAZE) preserv ative free injection 1 05/01/2021 heparin 1,000 unit/mL inject ion 2,000 Units 1 05/01/2021 heparin 1,000 unit/mL inject ion 3,000 Units 1 05/01/2021 heparin in 0.45% sodium chlo ride 25,000 units/250 mL (100 units/mL) infusion (premix) 2 05/01/2021 insulin glargine (LANTUS, SE MGLEE) 100 unit/mL injection 13 Units 1 05/01/2021 insulin lispro (HumaLOG, ADM ELOG) 100 unit/mL injection 0-4 Units 1 05/01/2021 insulin lispro (HumaLOG, ADM ELOG) 100 unit/mL injection 4 Units 1 05/01/2021 ioversoL (OPTIRAY 350) injection 1 05/01/20 midazolam (VERSED) 1 mg/mL p reservative free injection 1 05/01/2021 nitroglycerin injection 200 mcg/mL D5W 10 mL 1 05/01/2021 nitroprusside (NIPRIDE) injection 1 phenylephrine (HAYDEN-SYNEPHRINE) injection 1 05/01/2021 senna-docusate (PERICOLACE) 8.6-50 mg per tablet 1 tablet 1 05/01/2021 Lab Orders Without Results Count Last Ordered D ate First Ordered Date POCT GLUCOSE DEVICE 117 06/03/2021 05/02/20 21 Imaging Orders Without Results Count Last Order ed Date First Ordered Date HOME O2 EVAL (DESATURATION SCREEN) 1 2020 PEP THERAPY/AIRWAY CLEARANCE 40 06/01/2021 05/25/2021 Diet Count Last Ordered Date First Orde red Date ADULT DISCHARGE DIET 1 06/03/2021 Nursing Count Last Ordered Date First Orde red Date DISCHARGE ACTIVITY 1 06/03/2021 FOLLOW UP WITH ESTABLISHED PROVIDER 1 06/03 OSORIO CATHETER - DISCONTINUE 1 06/02/2021 STRAIGHT CATH 1 05/16/2021 NURSING COMMUNICATION 5 05/14/20212020 PLACE SEQUENTIAL COMPRESSION DEVICE 1 05/04 Consult Count Last Ordered Date First Orde red Date IP CONSULT TO SOCIAL WORK 3 06/01/2021 PHARMACY COMMUNICATION 1 05/26/2021 IP CONSULT TO ENDOCRINOLOGY 1 05/13/2021 IP CONSULT TO NUTRITION SERVICES 1 05/04/20 IP CONSULT TO UROLOGY 2 05/04/20212020 Transfer Count Last Ordered Date First Orde red Date TRANSFER PATIENT 4 05/31/2021 05/04/2021 CORE MEASURES Count Last Ordered Date First Ord ered Date REASON FOR NO VTE PROPHYLAXI S - HOSPITAL ADMISSION - MEDICATIONS 2 05/14/2021 05/04/2021 Case Request Count Last Ordered Date First Orde red Date CASE REQUEST OPERATING ROOM 1 05/03/2021 CASE REQUEST AUTOMOBILE RELOCATION ENGINEER 1 05/01/2021 documented in this encounter Additional Health Concerns Infection Onset Date Last Indicated Resolved Time COVID: Suspected 05/19/2021 05/19/2021 05/19/2021 10:03 PM STAFF FORESTER COVID19 05/19/2021 05/19/2021 06/17/2021 3:06 AM STAFF FORESTER Rhino/Enterovirus 05/26/2021 05/26/2021 06/09/2021 3:05 AM STAFF FORESTER documented as of this encounter Care Teams Senior Property Accountant Relationship Specialty Start Date End Date Unknown, Notinfile PCP - General 05/01/21 [place] [id number] [facility] [address] [place] [address] Surgeon Cardiothoracic Surgery 05/01/21 documented as of this encounter
--- OUTSIDE RECORDS SUMMARY | 2024-06-21 19:56 | XMS_ITS | Encounter Summary ---
Author Organization [facility] Healthcare Address [address] [place] [address] Care Team Providers Care Impact Hammer Operator Name Role Phone Unknown, Notinfile Primary Care Provider Unavail able Salbador Granados MD Unavailable [phone] Encounter Details Date Type Department Care Team (Latest Contact Info) Description 05/09/2021 4:06 AM ANSWERING SERVICE TELEPHONE OPERATOR - 05/09/2021 11:59 PM ANSWERING SERVICE TELEPHONE OPERATOR Hospital Encounter [facility] Diagnostic Imaging [id number] [phone] Discharge Disposition: Discharge to home or self [...] on file Legal Sex Male 11:30 PM ANSWERING SERVICE TELEPHONE OPERATOR Gender Identity Not on file Sexual [...] Comments XR CHEST 1 VIEW IP Routine 05/09/2021 6:12 AM ANSWERING SERVICE TELEPHONE OPERATOR documented in this encounter Results * XR Chest 1 View - Portable - in AM (05/09/2021 6:12 AM ANSWERING SERVICE TELEPHONE OPERATOR) Anatomical Region Laterality Modality Body, Chest N/A Computed Radiogr aphy 05/09/2021 3:27 PM ANSWERING SERVICE TELEPHONE OPERATOR Impressions 05/09/2021 3:27 PM ANSWERING SERVICE TELEPHONE OPERATOR Decreasing failure, atelectasis and left effusion. ?? Electronically signed by: Deandre Lomeli M.D. Narrative 05/09/2021 3:27 PM ANSWERING SERVICE TELEPHONE OPERATOR EXAMINATION: XR CHEST 1 VIEW DATE: 05/09/2021 4:10 AM HISTORY: 60-year-old man cardiac surgery follow-up FINDINGS:Compared with study the previous day, significant improvement. There is cardiomegaly with postsurgical changes with continued but decreasing failure. Bibasilar atelectasis with left pleural fluid decreasing. No pneumothorax. Aries-Radha catheter remains in place Procedure Note Deandre Lomeli MD - 05/09/2021 EXAMINATION: XR CHEST 1 VIEW DATE: 05/09/2021 4:10 AM HISTORY: 60-year-old man cardiac surgery follow-up FINDINGS:Compared with study the previous day, significant improvement. There is cardiomegaly with postsurgical changes with continued but decreasing failure. Bibasilar atelectasis with left pleural fluid decreasing. No pneumothorax. [place]-Radha catheter remains in place IMPRESSION: Decreasing failure, atelectasis and left effusion. Electronically signed by: Deandre Lomeli M.D. Salbador Granadso MD IMG XR PROCEDURES Final Resu lt documented in this encounter Visit Diagnoses Not on filedocumented in this encounter Care Teams Impact Hammer Operator Relationship Specialty Start Date End Date Unknown, Notinfile PCP - General 05/01/21 [place] [address] [facility] [address] [address] Surgeon Cardiothoracic Surgery 05/01/21 documented as of this encounter
--- OUTSIDE RECORDS SUMMARY | 2024-06-21 19:56 | XMS_ITS | Encounter Summary ---
Author Organization [facility] Healthcare Address [address] [place] [address] Care Team Providers Care Cylinder Handler Name Role Phone Unknown, Notinfile Primary Care Provider Unavail able Salbador Granados MD Unavailable Encounter Details Date Type Department Care Team (Latest Contact Info) Description 05/08/2021 4:14 AM WET PROCESS OPERATOR - 05/08/2021 11:59 PM WET PROCESS OPERATOR Hospital Encounter [facility] Diagnostic Imaging [id number] [id number] Discharge Disposition: Discharge to home or self [...] on file Legal Sex Male 11:30 PM WET PROCESS OPERATOR Gender Identity Not on file Sexual [...] Comments XR CHEST 1 VIEW IP Routine 05/08/2021 5:34 AM WET PROCESS OPERATOR documented in this encounter Results * XR Chest 1 View - Portable - in AM (05/08/2021 5:34 AM WET PROCESS OPERATOR) Anatomical Region Laterality Modality Body, Chest N/A Computed Radiogr aphy 05/08/2021 8:39 AM WET PROCESS OPERATOR Impressions 05/08/2021 8:39 AM WET PROCESS OPERATOR Decreasing failure. No pneumothorax. Electronically signed by: Deacon Cummings M.D. Narrative 05/08/2021 8:39 AM WET PROCESS OPERATOR EXAMINATION: XR CHEST 1 VIEW DATE: 05/08/2021 4:15 AM HISTORY: 60-year-old man cardiac surgery follow-up FINDINGS:Compared with study the previous day, significant improvement. There is cardiomegaly with postsurgical changes with continued but decreasing failure. Bibasilar atelectasis with left pleural fluid. No pneumothorax. [place]-Radha catheter remains in place Procedure Note Deacon Cummings MD - 05/08/2021 EXAMINATION: XR CHEST 1 VIEW DATE: 05/08/2021 4:15 AM HISTORY: 60-year-old man cardiac surgery follow-up FINDINGS:Compared with study the previous day, significant improvement. There is cardiomegaly with postsurgical changes with continued but decreasing failure. Bibasilar atelectasis with left pleural fluid. No pneumothorax. [place]-Radha catheter remains in place IMPRESSION: Decreasing failure. No pneumothorax. Electronically signed by: Deacon Cummings M.D. Salbador Granados MD IMG XR PROCEDURES Final Resu lt documented in this encounter Visit Diagnoses Not on filedocumented in this encounter Care Teams Cylinder Handler Relationship Specialty Start Date End Date Unknown, Notinfile PCP - General 05/01/21 [place] [address] [address] [address] Surgeon Cardiothoracic Surgery 05/01/21 documented as of this encounter
--- OUTSIDE RECORDS SUMMARY | 2024-06-21 19:56 | XMS_ITS | Encounter Summary ---
Author Organization [facility] Healthcare Address [address] [place] [address] Care Team Providers Care Senior Staff Psychologist Name Role Phone Unknown, Notinfile Primary Care Provider Unavail able Salbador Granados MD Unavailable [phone] Encounter Details Date Type Department Care Team (Latest Contact Info) Description 05/10/2021 2:36 AM MEDICAL CUSTOMER SERVICE REPRESENTATIVE - 05/10/2021 11:59 PM MEDICAL CUSTOMER SERVICE REPRESENTATIVE Hospital Encounter [facility] Diagnostic Imaging [id number] [phone] Discharge Disposition: Discharge to home or self [...] on file Legal Sex Male 11:30 PM MEDICAL CUSTOMER SERVICE REPRESENTATIVE Gender Identity Not on file Sexual Orientation [...] Comments XR CHEST 1 VIEW IP Routine 05/10/2021 6:55 AM MEDICAL CUSTOMER SERVICE REPRESENTATIVE documented in this encounter Results * XR Chest 1 View - Portable - in AM (05/10/2021 6:55 AM MEDICAL CUSTOMER SERVICE REPRESENTATIVE) Anatomical Region Laterality Modality Body, Chest N/A Computed Radiogr aphy 05/10/2021 8:47 AM MEDICAL CUSTOMER SERVICE REPRESENTATIVE Impressions 05/10/2021 8:47 AM MEDICAL CUSTOMER SERVICE REPRESENTATIVE Decreasing failure, atelectasis and left effusion. ?? Electronically signed by: Deandre Lomeli M.D. Narrative 05/10/2021 8:47 AM MEDICAL CUSTOMER SERVICE REPRESENTATIVE EXAMINATION: XR CHEST 1 VIEW DATE: 05/10/2021 2:40 AM COMPARISON: 05/09/2021 HISTORY: 60-year-old man cardiac surgery follow-up FINDINGS:Compared with study the previous day, significant improvement. There is cardiomegaly with postsurgical changes with continued and decreasing failure. Bibasilar atelectasis with left pleural fluid decreasing. No pneumothorax. [place]-Radha catheter remains in place Procedure Note Deandre Lomeli MD - 05/10/2021 EXAMINATION: XR CHEST 1 VIEW DATE: 05/10/2021 2:40 AM COMPARISON: 05/09/2021 HISTORY: 60-year-old man cardiac surgery follow-up FINDINGS:Compared with study the previous day, significant improvement. There is cardiomegaly with postsurgical changes with continued and decreasing failure. Bibasilar atelectasis with left pleural fluid decreasing. No pneumothorax. [place]-Radha catheter remains in place IMPRESSION: Decreasing failure, atelectasis and left effusion. Electronically signed by: Deandre Lomeli M.D. us Salbador Granados MD IMG XR PROCEDURES Final Resu lt documented in this encounter Visit Diagnoses Not on filedocumented in this encounter Care Teams Senior Staff Psychologist Relationship Specialty Start Date End Date Unknown, Notinfile PCP - General 05/01/21 [place] [address] [address] Surgeon Cardiothoracic Surgery 05/01/21 documented as of this encounter
--- OUTSIDE RECORDS SUMMARY | 2024-06-21 19:56 | XMS_ITS | Encounter Summary ---
Author Organization [facility] Healthcare Address [address] [place] [address] Care Team Providers Care Trust Evaluation Supervisor Name Role Phone Unknown, Notinfile Primary Care Provider Unavail able Salbador Granados MD Unavailable [phone] Encounter Details Date Type Department Care Team (Latest Contact Info) Description 05/11/2021 2:07 AM RESEARCH SUPPORT SPECIALIST - 05/11/2021 11:59 PM RESEARCH SUPPORT SPECIALIST Hospital Encounter [facility] Diagnostic Imaging [id number] [phone] Discharge Disposition: Discharge to home or self [...] on file Legal Sex Male 11:30 PM RESEARCH SUPPORT SPECIALIST Gender Identity Not on file Sexual Orientation [...] Comments XR CHEST 1 VIEW IP Routine 05/11/2021 6:57 AM RESEARCH SUPPORT SPECIALIST documented in this encounter Results * XR Chest 1 View - Portable - in AM (05/11/2021 6:57 AM RESEARCH SUPPORT SPECIALIST) Anatomical Region Laterality Modality Body, Chest N/A Computed Radiogr aphy 05/11/2021 9:13 AM RESEARCH SUPPORT SPECIALIST Impressions 05/11/2021 9:13 AM RESEARCH SUPPORT SPECIALIST IMPRESSION: No failure. Electronically signed by: Elvira Blackman M.D. Narrative 05/11/2021 9:13 AM RESEARCH SUPPORT SPECIALIST EXAMINATION: XR CHEST 1 VIEW HISTORY: The patient is a 60-year-old male who has had cardiac surgery. Comparison made with the previous study dated 05/10/2021. TECHNIQUE: AP portable view of the chest. FINDINGS: Lungs clear. ??Heart not enlarged. ??Aortic atherosclerosis. ??No failure. ??The right IJ [place]-Radha catheter has been retracted with its tip [...] Aortic atherosclerosis. No failure. The right IJ [place]-Radha catheter has been retracted with its tip in the distal superior vena cava. IMPRESSION: IMPRESSION: No failure. Electronically signed by: Elvira Blackman M.D. Salbador Granados MD IMG XR PROCEDURES Final Resu lt documented in this encounter Visit Diagnoses Not on filedocumented in this encounter Care Teams Trust Evaluation Supervisor Relationship Specialty Start Date End Date Unknown, Notinfile PCP - General 05/01/21 [place] [address] [address] [facility] [address] [address] Surgeon Cardiothoracic Surgery 05/01/21 documented as of this encounter
--- OUTSIDE RECORDS SUMMARY | 2024-06-21 19:56 | XMS_ITS | Encounter Summary ---
Author Organization [facility] Healthcare Address [address] [place] [address] Care Team Providers Care Senior Maintenance Technician Name Role Phone Unknown, Notinfile Primary Care Provider Unavail able Salbador Granados MD Unavailable [phone] Encounter Details Date Type Department Care Team (Latest Contact Info) Description 05/06/2021 4:01 AM WRAPPER STEMMER HAND - 05/06/2021 11:59 PM WRAPPER STEMMER HAND Hospital Encounter [facility] Diagnostic Imaging [id number] [phone] Discharge Disposition: Discharge to home or self [...] on file Legal Sex Male 11:30 PM WRAPPER STEMMER HAND Gender Identity Not on file Sexual [...] Comments XR CHEST 1 VIEW IP Routine 05/06/2021 5:55 AM WRAPPER STEMMER HAND documented in this encounter Results * XR Chest 1 View - Portable - in AM (05/06/2021 5:55 AM WRAPPER STEMMER HAND) Anatomical Region Laterality Modality Body, Chest N/A Computed Radiogr aphy 05/06/2021 8:20 AM WRAPPER STEMMER HAND Impressions 05/06/2021 8:20 AM WRAPPER STEMMER HAND 1. ??Interval removal of endotracheal tube. ??Remaining tubes and lines are appropriately positioned. 2. ??Similar-appearing cardiomegaly, pulmonary vascular congestion, and prominent bilateral interstitial markings suggestive of interstitial pulmonary edema. Electronically signed by: Richard Lopez II, D.O. Narrative 05/06/2021 8:20 AM WRAPPER STEMMER HAND EXAMINATION: XR CHEST 1 VIEW DATE: 05/06/2021 [...] Electronically signed by: Richard Lopez II, D.O. Salbador Granados MD IMG XR PROCEDURES Final Resu lt documented in this encounter Visit Diagnoses Not on filedocumented in this encounter Care Teams Senior Maintenance Technician Relationship Specialty Start Date End Date Unknown, Notinfile PCP - General 05/01/21 [place] [address] [address] [facility] [address] [address] Surgeon Cardiothoracic Surgery 05/01/21 documented as of this encounter
--- OUTSIDE RECORDS SUMMARY | 2024-06-21 19:56 | XMS_ITS | Encounter Summary ---
Author Organization [facility] Healthcare Address [address] [place] [address] Care Team Providers Care Outside Maintenance Worker Name Role Phone Unknown, Notinfile Primary Care Provider Unavail able Salbador Granados MD Unavailable [phone] Encounter Details Date Type Department Care Team (Latest Contact Info) Description 05/05/2021 4:14 AM EXPLOSIVES ENGINEER - 05/05/2021 11:59 PM EXPLOSIVES ENGINEER Hospital Encounter [facility] Diagnostic Imaging [address] [phone] Discharge Disposition: Discharge to home or self [...] on file Legal Sex Male 11:30 PM EXPLOSIVES ENGINEER Gender Identity Not on file Sexual [...] Comments XR CHEST 1 VIEW IP Routine 05/05/2021 5:32 AM EXPLOSIVES ENGINEER documented in this encounter Results * XR Chest 1 View - Portable - in AM (05/05/2021 5:32 AM EXPLOSIVES ENGINEER) Anatomical Region Laterality Modality Body, Chest N/A Computed Radiogr aphy 05/05/2021 8:35 AM EXPLOSIVES ENGINEER Impressions 05/05/2021 8:35 AM EXPLOSIVES ENGINEER Increasing failure. Electronically signed by: Deacon Cummings M.D. Narrative 05/05/2021 8:35 AM EXPLOSIVES ENGINEER EXAMINATION: XR CHEST 1 VIEW DATE: 05/05/2021 [...] failure. Electronically signed by: Deacon Cummings M.D. Salbador Granados MD IMG XR PROCEDURES Final Resu lt documented in this encounter Visit Diagnoses Not on filedocumented in this encounter Care Teams Outside Maintenance Worker Relationship Specialty Start Date End Date Unknown, Notinfile PCP - General 05/01/21 [place] [address] [address] [address] Surgeon Cardiothoracic Surgery 05/01/21 documented as of this encounter
--- OUTSIDE RECORDS SUMMARY | 2024-06-21 19:56 | XMS_ITS | Encounter Summary ---
Author Organization [facility] Healthcare Address [address] [place] [address] Care Team Providers Care Erp Manager Name Role Phone Unknown, Notinfile Primary Care Provider Unavail able Salbador Granados MD Unavailable [phone] Encounter Details Date Type Department Care Team (Latest Contact Info) Description 05/12/2021 3:49 AM CONSTRUCTION PRODUCER - 05/12/2021 11:59 PM CONSTRUCTION PRODUCER Hospital Encounter [facility] Diagnostic Imaging [id number] [phone] Discharge Disposition: Discharge to home or self [...] on file Legal Sex Male 11:30 PM CONSTRUCTION PRODUCER Gender Identity Not on file Sexual Orientation [...] Comments XR CHEST 1 VIEW IP Routine 05/12/2021 5:33 AM CONSTRUCTION PRODUCER documented in this encounter Results * XR Chest 1 View (05/12/2021 5:33 AM CONSTRUCTION PRODUCER) Anatomical Region Laterality Modality Body, Chest N/A Computed Radiogr aphy 05/12/2021 8:50 AM CONSTRUCTION PRODUCER Impressions 05/12/2021 8:50 AM CONSTRUCTION PRODUCER Stable cardiomegaly without failure or pneumothorax. Atelectasis left base. Electronically signed by: Deacon Cummings M.D. Narrative 05/12/2021 8:50 AM CONSTRUCTION PRODUCER EXAMINATION: XR CHEST 1 VIEW DATE: 05/12/2021 [...] by: Deacon Cummings M.D. us Varsha Crowder DRIVER TRAINER IMG XR PROCEDURES Final Re sult documented in this encounter Visit Diagnoses Not on filedocumented in this encounter Care Teams Erp Manager Relationship Specialty Start Date End Date Unknown, Notinfile PCP - General 05/01/21 [place] [address] [address] [facility] [address] [address] Surgeon Cardiothoracic Surgery 05/01/21 documented as of this encounter
--- OUTSIDE RECORDS SUMMARY | 2024-06-21 19:56 | XMS_ITS | Encounter Summary ---
Author Organization [facility] Healthcare Address [address] [place] [address] Care Team Providers Care Paving Rammer Name Role Phone Unknown, Notinfile Primary Care Provider Unavail able Salbador Granados MD Unavailable [phone] Encounter Details Date Type Department Care Team (Latest Contact Info) Description 05/04/2021 8:39 PM MIXER AND SCALER - 05/04/2021 11:59 PM MIXER AND SCALER Hospital Encounter [facility] Diagnostic Imaging [address] [place] [address] Discharge Disposition: Discharge to home [...] on file Legal Sex Male 11:30 PM MIXER AND SCALER Gender Identity Not on file Sexual Orientation [...] Comments XR CHEST 1 VIEW Critical/Life-Th reatening 05/04/2021 8:53 PM MIXER AND SCALER documented in this encounter Results * XR Chest 1 Vw Portable (05/04/2021 8:53 PM MIXER AND SCALER) Anatomical Region Laterality Modality Body, Chest N/A Computed Radiogr aphy 05/05/2021 8:32 AM MIXER AND SCALER Impressions 05/05/2021 8:32 AM MIXER AND SCALER Tube placements with postsurgical changes with cardiomegaly with interstitial lung disease and mild failure with no pneumothorax. Electronically signed by: Deacon Cummings M.D. Narrative 05/05/2021 8:32 AM MIXER AND SCALER EXAMINATION: XR CHEST 1 VIEW DATE: 05/04/2021 8:40 PM HISTORY: 60-year-old man coronary artery bypass follow-up FINDINGS:Compared with the study of earlier the same day, postsurgical changes now evident within the heart and mediastinum with cardiomegaly. Interval placement of endotracheal tube, nasogastric tube, [place]-Radha catheter, left thoracostomy tube and mediastinal drain [...] Interval placement of endotracheal tube, nasogastric tube, [place]-Ardha catheter, left thoracostomy tube and mediastinal drain [...] on filedocumented in this encounter Care Teams Paving Rammer Relationship Specialty Start Date End Date Unknown, Notinfile PCP - General 05/01/21 [place] [address] [address] [address] Surgeon Cardiothoracic Surgery 05/01/21 documented as of this encounter
--- OUTSIDE RECORDS SUMMARY | 2024-06-21 19:56 | XMS_ITS | Encounter Summary ---
Author Organization [facility] Healthcare Address [address] [place] [address] Care Team Providers Care Special Loan Officer Name Role Phone Unknown, Notinfile Primary Care Provider Unavail able Salbador Granados MD Unavailable [phone] Encounter Details Date Type Department Care Team (Latest Contact Info) Description 05/07/2021 3:51 AM DONOR TECHNICIAN - 05/07/2021 11:59 PM DONOR TECHNICIAN Hospital Encounter [facility] Diagnostic Imaging [address] [phone] Discharge Disposition: Discharge to home or self [...] on file Legal Sex Male 11:30 PM DONOR TECHNICIAN Gender Identity Not on file Sexual [...] Comments XR CHEST 1 VIEW IP Routine 05/07/2021 5:33 AM DONOR TECHNICIAN documented in this encounter Results * XR Chest 1 View - Portable - in AM (05/07/2021 5:33 AM DONOR TECHNICIAN) Anatomical Region Laterality Modality Body, Chest N/A Computed Radiogr aphy 05/07/2021 8:42 AM DONOR TECHNICIAN Impressions 05/07/2021 8:42 AM DONOR TECHNICIAN Persistent prominent interstitial lung disease with failure. Electronically signed by: Deacon Cummings M.D. Narrative 05/07/2021 8:42 AM DONOR TECHNICIAN EXAMINATION: XR CHEST 1 VIEW DATE: 05/07/2021 3:55 AM HISTORY: 60-year-old man follow-up cardiac surgery FINDINGS:Compared with study of the previous day, postsurgical changes in the heart and mediastinum with cardiomegaly are stable. [place]-Radha catheter remains in place. Left thoracostomy tube remains in place. No pneumothorax. Pulmonary vascular congestion with interstitial lung disease remain prominent. Procedure Note Deacon Cummings MD - 05/07/2021 EXAMINATION: XR CHEST 1 VIEW DATE: 05/07/2021 3:55 AM HISTORY: 60-year-old man follow-up cardiac surgery FINDINGS:Compared with study of the previous day, postsurgical changes in the heart and mediastinum with cardiomegaly are stable. [place]-Radha catheter remains in place. Left thoracostomy tube remains in place. No pneumothorax. Pulmonary vascular congestion with interstitial lung disease remain prominent. IMPRESSION: Persistent prominent interstitial lung disease with failure. Electronically signed by: Deacon Cummings M.D. Salbador Granados MD IMG XR PROCEDURES Final Resu lt documented in this encounter Visit Diagnoses Not on filedocumented in this encounter Care Teams Special Loan Officer Relationship Specialty Start Date End Date Unknown, Notinfile PCP - General 05/01/21 [place] [address] [address] [facility] [address] [address] Surgeon Cardiothoracic Surgery 05/01/21 documented as of this encounter
--- OUTSIDE RECORDS SUMMARY | 2024-06-21 19:56 | XMS_ITS | Encounter Summary ---
Author Organization [facility] Healthcare Address [address] [place] [address] Care Team Providers Care Taxi Proprietor Name Role Phone Unknown, Notinfile Primary Care Provider Unavail able Salbador Granados MD Unavailable [phone] Encounter Details Date Type Department Care Team (Late st Contact Info) Description 05/14/2021 12:23 PM HEALTH CLUB MANAGER Anesthesia Event [facility] Operating Room [address] [place] [address] [place] [address] [facility][1] [address] [place] [address] [place] [address] [facility] [place] [address] Anesthesia Record Procedure Summary Procedure Name Responsible Anesthesiologist Anesthesia Start Time Anesthesia Stop Time CYSTOSCOPY with clot evacuation and fulguration (Urethra) 05/14/21 1223 05/14/21 1309 Events Date Time Event Comment 05/13/2021 0740 05/14/2021 1222 In Room 1223 An Start 1223 An Start Data 1228 An Induction The patient was reevaluated immediately before moderate or deep sedation use and before anesthesia induction. 1228 An LMA 1232 Anesthesia Ready 1237 Proc Start 1305 Proc Fin 1308 Out of Room 1309 An Extubation 1309 an stop data 1309 An Stop Meds Name Total midazolam 2 mg fentaNYL 100 mcg propofol 100 mg ketamine 20 mg phenylephrine 400 mcg LR 500 mL * Agents Name O2 Sevoflurane Inspired Sevoflurane * Blood No blood administrations on file. Lines, Drains, and Airways Type Details Placement Removal Introducer Placement Date: 05/04/21; Placement Time: 1441 (created via procedure documentation); Existing LDA Placed by: Yes; Size: multi-lumen access catheter (MAC); Insertion Attempts: 05/18/21; Securement: 1507 05/04/21 1441 by Robert Duran AA 05/18/21 1507 by Betty Kidd RN RETIRED Surgical Site 05/04/21; 1456; Ch est; 08/21/21; 1459 05/04/21 1456 by Jess Hanley RN 08/21/21 1459 by Natalie Hassan, DEEPIKA RETIRED Surgical Site 05/04/21; 1456; Ri ght; Leg; 08/21/21; 1459 05/04/21 1456 by Jess Hanley RN 08/21/21 1459 by Natalie Hassan RN Urethral Catheter Placement Date: 05/14/21; Inserted by: Jordan; Type: Latex; Balloon Size: 30 mL; Urine Returned: Yes; Removal Date: 05/15/21; Removal Time: 0855 05/14/21 0000 by Alexa Faria RN 05/15/21 0855 by Charo Girard RN documented in this encounter Social History Tobacco Use Types Packs/Day Years Used Date Smoking Tobacco: Every Day Cigarettes 1 40 Comments:Smoking History Pac ks/day: 1 Packs Alcohol Use Standard Drinks/Week Comments No 0 (1 standard drink = 0.6 oz pur e alcohol) Sex and Gender Information Value Date Recorded Sex Assigned at Not on file Legal Sex Male 11:30 PM HEALTH CLUB MANAGER Gender Identity Not on file Sexual Orientation Not on file documented as of this encounter OR Notes * Anesthesia Preprocedure Evaluation - Elizabeth No MD - 05/11/2021 1:22 PM CST Images from the original note were not included. Anesthesia Evaluation Baldev Qiu is a 60 y.o. male Procedure(s): CYSTOSCOPY CLOT EVACUATION Pre-Op Diagnosis Codes: * ST elevation myocardial infarction (STEMI), unspecified artery (HCC) [I21.3] HISTORY Past Medical History Information obtained from: patient and chart. Neurological Neuro/Psych system: negative Cardiovascular + Hypertension + CAD + MS (STEMI) + CABG - Prior CABG date: 05/04/21. + Unknown stent(s) type - Prior stent(s) date: 2009. + Systolic or diastolic dysfunction w/o CHF Systolic dysfunction w/o CHF. Diastolic dysfunction w/oCHF. Diastolic function: stage I - impaired relaxation LVEF: 40-50%. Comments: IABP Respiratory + COPD + Current smoker - Counseled to abstain from smoking the day of surgery. Patient refrained from smoking on day of surgery. Hepatic / Heme Hepatic/Heme system: negative Gastrointestinal GI system: negative Renal / Renal/ system: negative Musculoskeletal/Pain Musculoskeletal/Pain system: negative Endocrine / Other + Diabetes mellitus - Diabetes type 2. Outpatient insulin use: none. Functional Capacity Functional capacity: 4-6 METs and <4 METs Functional capacity limited by a non-cardiovascular, non-pulmonary condition. Patient Active Problem List Diagnosis ??? ST elevation myocardial infarction (STEMI) (HCC) Past Medical History: Diagnosis Date ??? Chronic obstructive pulmonary disease (CMS/HCC) (HCC) COPD ??? Coronary artery disease ??? Diabetes mellitus (HCC) ??? H/O heart artery stent 2006 ??? Hypertension Hypertension ??? ST elevation (STEMI) myocardial infarction (HCC) 05/01/2021 No past surgical history on file. Allergies Allergen Reactions ??? Metoclopramide Med List Status: Nurse Complete Set By: Betty Rogers RN at 05/03/2021 6:07 PM Taking? Last Dose Start Date End Date Provider aspirin 325 mg tablet 04/13/12 -- Alejandro Kim MD take 1 Tablet (325MG) by oral route every day carvedilol (COREG) 6.25 mg tablet 04/13/12 -- Alejandro Kim MD TAKE 1 TABLET (6.25MG) BY ORAL ROUTE 2 TIMES EVERY DAY WITH FOOD fenofibrate (TRIGLIDE) 160 mg tablet 04/13/12 -- Alejandro Kim MD take 1 tablet (160MG) by oral route every day glimepiride (AMARYL) 2 mg tablet 04/13/12 -- Alejandro Kim MD take 1 tablet (2MG) by oral route every day insulin glargine (LANTUS) 100 unit/mL cartridge 04/13/12 -- Alejandro Kim MD inject by subcutaneous route as per insulin protocol lisinopril (PRINIVIL,ZESTRIL) 10 mg tablet 04/13/12 -- Alejandro Kim MD take 1 Tablet (10MG) by oral route every day pantoprazole DR (PROTONIX) 40 mg EC tablet 04/13/12 -- Alejandro Kim MD take 1 tablet (40MG) by oral route every day prasugrel (EFFIENT) tablet 04/13/12 -- Sofía Boateng NP take 1 tablet (10MG) by oral route every day pravastatin (PRAVACHOL) 80 mg tablet 04/13/12 -- Alejandro Kim MD take 1 tablet (80MG) by oral route every day Current Facility-Administered Medications: ??? acetaminophen (TYLENOL) tablet 650 mg, 650 mg, oral, Q6H PRN ? ? al & mag hydroxide csxwtzezwxp-jmaxquuilqtvbxc-ajxckpvbm-nystatin (MAGIC MOUTHWASH) suspension 1-1-1-1, 20 mL, swish & spit, Q4H PRN, 20 mL at 05/09/21 181 ??? albuterol 2.5 mg /3 mL (0.083 %) nebulizer solution 2.5 mg, 2.5 mg, nebulization, Q4H PRN (RT) ??? [START ON 05/12/2021] aspirin enteric coated tablet 81 mg, 81 mg, oral, Daily ??? atorvastatin (LIPITOR) tablet 80 mg, 80 mg, oral, Nightly, 80 mg at 05/10/212 ??? [Held by Provider] clopidogreL (PLAVIX) tablet 75 mg, 75 mg, oral, Daily, 75 mg at 05/10/21 0854 ??? dextrose oral liquid liquid 15 g, 15 g, oral, Q15 Min PRN OR dextrose (D10W) 10% bolus 250 mL, 250 mL, intravenous, Q15 Min PRN ??? docusate sodium (COLACE) capsule 100 mg, 100 mg, oral, BID, 100 mg at 05/11/21 1124 OR [DISCONTINUED] docusate (COLACE) 10 mg/mL oral liquid 100 mg, 100 mg, feeding tube, BID, 100 mg at 05/05/21 0842 ??? [Held by Provider] enoxaparin (LOVENOX) syringe 40 mg, 40 mg, subcutaneous, Daily-2100, 40 mg at 05/10/212140 ??? glucagon injection 1 mg, 1 mg, intramuscular, Q30 Min PRN ??? guaiFENesin ER (MUCINEX) extended release tablet 600 mg, 600 mg, oral, BID, 600 mg at 05/11/21 1123 ??? insulin glargine (LANTUS, SEMGLEE) 100 unit/mL injection 20 Units, 0.25 Units/kg, subcutaneous,Nightly ??? insulin lispro (HumaLOG, ADMELOG) 100 unit/mL injection 0-10 Units, 0-10 Units, subcutaneous, TID with meals, 8 Units at 05/11/21 1246 ??? insulin lispro (HumaLOG, ADMELOG) 100 unit/mL injection 0-5 Units, 0-5 Units, subcutaneous, Nightly ??? insulin lispro (HumaLOG, ADMELOG) 100 unit/mL injection 7 Units, 0.083 Units/kg, subcutaneous, TID with meals, 7 Units at 05/11/21 1245 ??? metoprolol tartrate (LOPRESSOR) immediate release tablet 12.5 mg, 12.5 mg, oral, BID, 12.5 mg at 05/11/21 1248 ??? ondansetron (ZOFRAN) injection 4 mg, 4 mg, intravenous, Q6H PRN ??? oxyCODONE (ROXICODONE) tablet 5 mg, 5 mg, oral, Q4H PRN, 5 mg at 05/11/21 1123 ??? pantoprazole DR (PROTONIX) extended release tablet 40 mg, 40 mg, oral, Daily, 40 mg at 124 ??? piperacillin-tazobactam (ZOSYN) 3.375 g in sodium chloride 0.9% 100 mL IVPB, 3.375 g, intravenous, Q6H LEAH, Last Rate: 200 mL/hr at 05/11/21 1247, 3.375 g at 05/11/21 1247 ??? polyethylene glycol (MIRALAX) packet 17 g, 17 g, oral, BID, 17 g at 05/10/21 2141 ??? potassium chloride ER (KLOR-CON) extended release tablet 20 mEq, 20 mEq, oral, BID, 20 mEq at 05/11/21 1124 ??? QUEtiapine (SEROquel) tablet 25 mg, 25 mg, oral, BID, 25 mg at 05/11/21 1124 ??? sodium chloride 0.9% flush 0.5-20 mL, 0.5-20 mL, intra-catheter, Q8H LEAH, 10 mL at 05/11/21 0554 Social History Tobacco Use Smoking Status Current Every Day Smoker ??? Packs/day: 1.00 ??? Years: 40.00 ??? Pack years: 40.00 ??? Types: Cigarettes Smokeless Tobacco Not on file Tobacco Comment Smoking History Packs/day: 1 Packs Substance and Sexual Activity Alcohol Use No Substance and Sexual Activity Drug Use Yes ??? Frequency: 1.0 times per week ??? Types: Tobacco Comment: 1 ppd current smoker Family History Problem Relation Age of Onset ??? COPD Father Vitals: 05/11/21 0400 05/11/21 0723 05/11/21 1223 BP: 114/64 108/96 109/68 Pulse: 88 90 90 Resp: 20 18 18 Temp: 36.1 ??C (97 ??F) 36.7 ??C (98.1 ??F) 36.6 ??C (97.9 ??F) SpO2: 91% 92% 90% PT: 05/05/2021: 14.4 sec (H) INR: 05/05/2021: 1.3 (H) APTT: 05/05/2021: 33 sec Hgb A1C: 05/03/2021: 13.5 % (H) CBC RBC: 05/11/2021: 3.67 M/cumm (L) RDW: No results found for requested labs within last 720 hours. MCHC: 05/11/2021: 33.0 g/dL MCH: 05/11/2021: 30.2 pg MCV: 05/11/2021: 91.6 fL Hct: 05/11/2021: 33.6 % (L) Hgb: 05/11/2021: 11.1 g/dL (L) WBC: 05/11/2021: 17.3 K/cumm (H) MPV: 05/11/2021: 11.4 fL Platelets: 05/11/2021: 330 K/cumm RDW CV: 05/11/2021: 13.3 % RDW Sd: 05/11/2021: 44.5 fL BMP Glucose: 05/11/2021: 309 mg/dL (H) Calcium: 05/11/2021: 8.8 mg/dL Sodium: 05/11/2021: 132 mmol/L (L) Potassium: 05/11/2021: 3.5 mmol/L CO2: 05/11/2021: 23 mmol/L Chloride: 05/11/2021: 95 mmol/L (L) BUN: 05/11/2021: 24 mg/dL Creatinine: 05/11/2021: 0.89 mg/dL TTE Conclusions: Reduced left ventricular cavity size. Mild global left ventricular systolic dysfunction. Ejection fraction is measured at 42 %. These segments of the LV are hypokinetic: apical anterior segment. Trivial pericardial effusion. No echocardiographic evidence to suggest pericardial tamponade. EXAMINATION: XR CHEST 1 VIEW ?? DATE: 05/12/2021 3:50 AM ?? HISTORY: 60-year-old man follow-up cardiac surgery ?? FINDINGS:Comparison is made with the study of the previous day. Postsurgical changes with cardiomegaly stable. No failure fluid. No pneumothorax. Minor atelectasis left base. Central sheath superior vena cava ?? IMPRESSION: ?? Stable cardiomegaly without failure or pneumothorax. Atelectasis left base. DOS Physical Exam Medical history, medications, and allergies reviewed. Attestation: I endorse the findings of the anesthesia pre-evaluation assessment dated: 05/14/2021. Airway Exam: Mallampati: I Cervical ROM: FROM Upper lip bite test class: 1 Cardiovascular Exam: Rate: regular Rhythm: regular Pulmonary Exam: LCTA EENT Exam: trachea midline Dental Exam: Chipped, missing and poor dentition Skin Exam: Skin is warm. Current state: Patient's current state is cooperative and interactive. Anesthesia Plan ASA 4- emergent Planned anesthesia: General Team communication plan: LMA Induction: Induction: intravenous. Postoperative Plan: Postoperative administration opioids intended. No postoperative mechanical ventilation intended. Patient's planned disposition post procedure is Floor. No trial extubation planned. Informed Consent: Anesthesia plan and risks discussed with patient and spouse. Consent and Attending signature: I and/or my designee have discussed the anesthesia plan, benefits, possible alternatives, parental presence at time of induction (if indicated), and clinically relevant risks that may include dental injury, unintentional awareness, and/or other complications. The patient and/or parent/legal guardian understand, and agree to proceed. All questions answered. TH CLUB MANAGER TH CLUB MANAGER TH CLUB MANAGER TH CLUB MANAGER TH CLUB MANAGER * Anesthesia Preprocedure Evaluation - Racquel Cerrato MD - 05/11/2021 1:17 PM CST Images from the original note were not included. Anesthesia Evaluation Baldev Qiu is a 60 y.o. male Procedure(s): CYSTOSCOPY CLOT EVACUATION Pre-Op Diagnosis Codes: * ST elevation myocardial infarction (STEMI), unspecified artery (HCC) [I21.3] HISTORY Past Medical History Cardiovascular + Hypertension + CAD + MS Comments: Acute anterior STEMI with CAD , s/p PCI to LAD -s/p CABG x 4 05/04 given re thrombosis of existing stents -s/p IABP, removed 05/06 - off Dobutamine gtt 05/11 -pt is on ASA, statins , added BBs , Plavix on hold due to hematuria ?? Post CABG cardiogenic shock - s/p fluid resuscitation , Levophed - off Dobutamine gtt today Postop echo-Conclusions: Reduced left ventricular cavity size. Mild global left ventricular systolic dysfunction. Ejection fraction is measured at 42 %. These segments of the LV are hypokinetic: apical anterior segment. Trivial pericardial effusion. No echocardiographic evidence to suggest pericardial tamponade. Respiratory + COPD + Current smoker Renal / Comments: Cysto for hematuria Endocrine / Other + Diabetes mellitus - Diabetes type 2. Functional Capacity Functional capacity: <4 METs Patient Active Problem List Diagnosis ??? ST elevation myocardial infarction (STEMI) ([facility]) Past Medical History: Diagnosis Date ??? Chronic obstructive pulmonary disease (CMS/HCC) (HCC) COPD ??? Coronary artery disease ??? Diabetes mellitus (HCC) ??? H/O heart artery stent 2006 ??? Hypertension Hypertension ??? ST elevation (STEMI) myocardial infarction (HCC) 05/01/2021 No past surgical history on file. Allergies Allergen Reactions ??? Metoclopramide Med List Status: Nurse Complete Set By: Betty Rogers RN at 05/03/2021 6:07 PM Taking? Last Dose Start Date End Date Provider aspirin 325 mg tablet 04/13/12 -- Alejandro Kim MD take 1 Tablet (325MG) by oral route every day carvedilol (COREG) 6.25 mg tablet 04/13/12 -- Alejandro Kim MD TAKE 1 TABLET (6.25MG) BY ORAL ROUTE 2 TIMES EVERY DAY WITH FOOD fenofibrate (TRIGLIDE) 160 mg tablet 04/13/12 -- Alejandro Kim MD take 1 tablet (160MG) by oral route every day glimepiride (AMARYL) 2 mg tablet 04/13/12 -- Alejandro Kim MD take 1 tablet (2MG) by oral route every day insulin glargine (LANTUS) 100 unit/mL cartridge 04/13/12 -- Alejandro Kim MD inject by subcutaneous route as per insulin protocol lisinopril (PRINIVIL,ZESTRIL) 10 mg tablet 04/13/12 -- Alejandro Kim MD take 1 Tablet (10MG) by oral route every day pantoprazole DR (PROTONIX) 40 mg EC tablet 04/13/12 -- Alejandro Kim MD take 1 tablet (40MG) by oral route every day prasugrel (EFFIENT) tablet 04/13/12 -- Sofía Boateng NP take 1 tablet (10MG) by oral route every day pravastatin (PRAVACHOL) 80 mg tablet 04/13/12 -- Alejandro Kim MD take 1 tablet (80MG) by oral route every day Current Facility-Administered Medications: ??? acetaminophen (TYLENOL) tablet 650 mg, 650 mg, oral, Q6H PRN ? ? al & mag hydroxide nukbupysyjp-oejpamgehidmbfa-eixdkgcjh-nystatin (MAGIC MOUTHWASH) suspension 1-1-1-1, 20 mL, swish & spit, Q4H PRN, 20 mL at 05/09/211814 ??? albuterol 2.5 mg /3 mL (0.083 %) nebulizer solution 2.5 mg, 2.5 mg, nebulization, Q4H PRN (RT) ??? [START ON 05/12/2021] aspirin enteric coated tablet 81 mg, 81 mg, oral, Daily ??? atorvastatin (LIPITOR) tablet 80 mg, 80 mg, oral, Nightly, 80 mg at 05/10/212141 ??? [Held by Provider] clopidogreL (PLAVIX) tablet 75 mg, 75 mg, oral, Daily, 75 mg at 05/10/21 0854 ??? dextrose oral liquid liquid 15 g, 15 g, oral, Q15 Min PRN OR dextrose (D10W) 10% bolus 250 mL, 250 mL, intravenous, Q15 Min PRN ??? docusate sodium (COLACE) capsule 100 mg, 100 mg, oral, BID, 100 mg at 05/11/21 1124 OR [DISCONTINUED] docusate (COLACE) 10 mg/mL oral liquid 100 mg, 100 mg, feeding tube, BID, 100 mg at 05/05/21 0842 ??? [Held by Provider] enoxaparin (LOVENOX) syringe 40 mg, 40 mg, subcutaneous, Daily-2100, 40 mg at 05/10/212140 ??? glucagon injection 1 mg, 1 mg, intramuscular, Q30 Min PRN ??? guaiFENesin ER (MUCINEX) extended release tablet 600 mg, 600 mg, oral, BID, 600 mg at 05/11/21 1123 ??? insulin glargine (LANTUS, SEMGLEE) 100 unit/mL injection 20 Units, 0.25 Units/kg, subcutaneous,Nightly ??? insulin lispro (HumaLOG, ADMELOG) 100 unit/mL injection 0-10 Units, 0-10 Units, subcutaneous, TID with meals, 8 Units at 05/11/21 1246 ??? insulin lispro (HumaLOG, ADMELOG) 100 unit/mL injection 0-5 Units, 0-5 Units, subcutaneous, Nightly ??? insulin lispro (HumaLOG, ADMELOG) 100 unit/mL injection 7 Units, 0.083 Units/kg, subcutaneous, TID with meals, 7 Units at 05/11/21 1245 ??? metoprolol tartrate (LOPRESSOR) immediate release tablet 12.5 mg, 12.5 mg, oral, BID, 12.5 mg at 05/11/21 1248 ??? ondansetron (ZOFRAN) injection 4 mg, 4 mg, intravenous, Q6H PRN ??? oxyCODONE (ROXICODONE) tablet 5 mg, 5 mg, oral, Q4H PRN, 5 mg at 05/11/21 1123 ??? pantoprazole DR (PROTONIX) extended release tablet 40 mg, 40 mg, oral, Daily, 40 mg at 124 ??? piperacillin-tazobactam (ZOSYN) 3.375 g in sodium chloride 0.9% 100 mL IVPB, 3.375 g, intravenous, Q6H LEAH, Last Rate: 200 mL/hr at 05/11/21 1247, 3.375 g at 05/11/21 1247 ??? polyethylene glycol (MIRALAX) packet 17 g, 17 g, oral, BID, 17 g at 05/10/212140 ??? potassium chloride ER (KLOR-CON) extended release tablet 20 mEq, 20 mEq, oral, BID, 20 mEq at 05/11/21 1124 ??? QUEtiapine (SEROquel) tablet 25 mg, 25 mg, oral, BID, 25 mg at 05/11/21 1124 ??? sodium chloride 0.9% flush 0.5-20 mL, 0.5-20 mL, intra-catheter, Q8H LEAH, 10 mL at 05/11/21 0554 Social History Tobacco Use Smoking Status Current Every Day Smoker ??? Packs/day: 1.00 ??? Years: 40.00 ??? Pack years: 40.00 ??? Types: Cigarettes Smokeless Tobacco Not on file Tobacco Comment Smoking History Packs/day: 1 Packs Substance and Sexual Activity Alcohol Use No Substance and Sexual Activity Drug Use Yes ??? Frequency: 1.0 times per week ??? Types: Tobacco Comment: 1 ppd current smoker Family History Problem Relation Age of Onset ??? COPD Father Vitals: 05/11/21 0400 05/11/21 0723 05/11/21 1223 BP: 114/64 108/96 109/68 Pulse: 88 90 90 Resp: 18 18 Temp: 36.1 ??C (97 ??F) 36.7 ??C (98.1 ??F) 36.6 ??C (97.9 ??F) SpO2: 91% 92% 90% PT: 05/05/2021: 14.4 sec (H) INR: 05/05/2021: 1.3 (H) APTT: 05/05/2021: 33 sec Hgb A1C: 05/03/2021: 13.5 % (H) CBC RBC: 05/11/2021: 3.67 M/cumm (L) RDW: No results found for requested labs within last 720 hours. MCHC: 05/11/2021: 33.0 g/dL MCH: 05/11/2021: 30.2 pg MCV: 05/11/2021: 91.6 fL Hct: 05/11/2021: 33.6 % (L) Hgb: 05/11/2021: 11.1 g/dL (L) WBC: 05/11/2021: 17.3 K/cumm (H) MPV: 05/11/2021: 11.4 fL Platelets: 05/11/2021: 330 K/cumm RDW CV: 05/11/2021: 13.3 % RDW Sd: 05/11/2021: 44.5 fL BMP Glucose: 05/11/2021: 309 mg/dL (H) Calcium: 05/11/2021: 8.8 mg/dL Sodium: 05/11/2021: 132 mmol/L (L) Potassium: 05/11/2021: 3.5 mmol/L CO2: 05/11/2021: 23 mmol/L Chloride: 05/11/2021: 95 mmol/L (L) BUN: 05/11/2021: 24 mg/dL Creatinine: 05/11/2021: 0.89 mg/dL DOS Physical Exam Airway Exam: (Gr I ETT 05/04/21) Anesthesia Plan Planned anesthesia: General Team communication plan: LMA Consent and Attending signature: I and/or my designee have discussed the anesthesia plan, benefits, possible alternatives, parental presence at time of induction (if indicated), and clinically relevant risks that may include dental injury, unintentional awareness, and/or other complications. The patient and/or parent/legal guardian understand, and agree to proceed. All questions answered. TH CLUB MANAGER documented in this encounter Plan of Treatment Not on file documented as of this encounter Visit Diagnoses Not on filedocumented in this encounter Administered Medications Inactive Administered Medications - up to 3 most recent administrations Medication Order MAR Action Action Date Dose Rate Site fentaNYL (SUBLIMAZE) preservative free injection intravenous, As needed, Starting on Kristina 05/14/21 at 1228, Anesthesia Intra-op Given 05/14/2021 12:32 PM HEALTH CLUB MANAGER 50 mcg Given 05/14/2021 12:28 PM HEALTH CLUB MANAGER 50 mcg ketamine (KETALAR) injection intravenous, Administer over 2 Minutes, As needed, Starting on Kristina 05/14/21 at 1240, Anesthesia Intra-op Given 05/14/2021 12:27 PM HEALTH CLUB MANAGER 20 mg Lactated Ringer's (LR) infusion intravenous, Continuous PRN, Starting on Kristina 05/14/21 at 1222, Anesthesia Intra-op New Bag 05/14/2021 12:22 PM HEALTH CLUB MANAGER 50 mL/hr midazolam (VERSED) 1 mg/mL preservative free injection intravenous, Administer over 2 Minutes, As needed, Starting on Kristina 05/14/21 at 1223, Anesthesia Intra-op Given 05/14/2021 12:23 PM HEALTH CLUB MANAGER 2 mg phenylephrine (BRYSON-SYNEPHRINE) 1 mg/10 mL (100 mcg/mL) in sodium chloride 0.9% (premix) intravenous, As needed, Starting on Kristina 05/14/21 at 1241, Anesthesia Intra-op Given 05/14/2021 12:41 PM HEALTH CLUB MANAGER 200 mcg Given 05/14/2021 12:32 PM HEALTH CLUB MANAGER 200 mcg propofoL (DIPRIVAN) 10 mg/mL IV intravenous, As needed, Starting on Kristina 05/14/21 at 1228, Anesthesia Intra-op Given 05/14/2021 12:28 PM HEALTH CLUB MANAGER 100 m g documented in this encounter Care Teams Taxi Proprietor Relationship Specialty Start Date End Date Unknown, Notinfile PCP - General 05/01/21 [place] [address] [address] Surgeon Cardiothoracic Surgery 05/01/21 documented as of this encounter
--- OUTSIDE RECORDS SUMMARY | 2024-06-21 19:56 | XMS_ITS | Encounter Summary ---
Author Organization [facility] Healthcare Address [address] [place] [address] Care Team Providers Care Soc Analyst Name Role Phone Unknown, Notinfile Primary Care Provider Unavail able Salbador Granados MD Unavailable [phone] Encounter Details Date Type Department Care Team (Latest Contact Info) Description 05/13/2021 4:01 AM INSTRUMENTATION AND CONTROL TECHNICIAN - 05/13/2021 11:59 PM INSTRUMENTATION AND CONTROL TECHNICIAN Hospital Encounter [facility] [id number] [id number] Discharge Disposition: Discharge to home or self [...] on file Legal Sex Male 11:30 PM INSTRUMENTATION AND CONTROL TECHNICIAN Gender Identity Not on file Sexual [...] Comments XR CHEST 1 VIEW IP Routine 05/13/2021 6:00 AM INSTRUMENTATION AND CONTROL TECHNICIAN documented in this encounter Results * XR Chest 1 View (05/13/2021 6:00 AM INSTRUMENTATION AND CONTROL TECHNICIAN) Anatomical Region Laterality Modality Body, Chest N/A Computed Radiogr aphy 05/13/2021 8:41 AM INSTRUMENTATION AND CONTROL TECHNICIAN Impressions 05/13/2021 8:41 AM INSTRUMENTATION AND CONTROL TECHNICIAN Of failure or pneumothorax. Increasing left effusion. Electronically signed by: Deacon Cummings M.D. Narrative 05/13/2021 8:41 AM INSTRUMENTATION AND CONTROL TECHNICIAN EXAMINATION: XR CHEST 1 VIEW DATE: 05/13/2021 [...] effusion. Electronically signed by: Deacon Cummings M.D. Varsha Crowder WINDOW DISPLAY DESIGNER IMG XR PROCEDURES Final Re sult documented in this encounter Visit Diagnoses Not on filedocumented in this encounter Care Teams Soc Analyst Relationship Specialty Start Date End Date Unknown, Notinfile PCP - General 05/01/21 [place] [address] [address] [address] Surgeon Cardiothoracic Surgery 05/01/21 documented as of this encounter
--- OUTSIDE RECORDS SUMMARY | 2024-06-21 19:56 | XMS_ITS | Encounter Summary ---
Author Organization [facility] Healthcare Address [address] [place] [address] Care Team Providers Care Air Brake Operator Name Role Phone Unknown, Notinfile Primary Care Provider Unavail able Salbador Granados MD Unavailable [phone] Encounter Details Date Type Department Care Team (Latest Contact Info) Description 05/04/2021 9:03 AM [employer] ASSISTANT MANAGER - 05/04/2021 8:38 PM [employer] ASSISTANT MANAGER Hospital Encounter [facility] Diagnostic Imaging [id number] [id number] Discharge Disposition: Discharge to home or self [...] on file Legal Sex Male 11:30 PM [employer] ASSISTANT MANAGER Gender Identity Not on file Sexual [...] XR CHEST 1 VIEW Critical/Life-Th reatening 05/04/2021 9:16 AM [employer] ASSISTANT MANAGER documented in this encounter Results * XR Chest 1 Vw Portable (05/04/2021 9:16 AM [employer] ASSISTANT MANAGER) Anatomical Region Laterality Modality Body, Chest N/A Computed Radiogr aphy 05/04/2021 9:27 AM [employer] ASSISTANT MANAGER Impressions 05/04/2021 9:27 AM [employer] ASSISTANT MANAGER Stable appearance. COPD cardiomegaly, with mild failure suspected. Electronically signed by: Deacon Cummings M.D. Narrative 05/04/2021 9:27 AM [employer] ASSISTANT MANAGER EXAMINATION: XR CHEST 1 VIEW DATE: 05/04/2021 [...] suspected. Electronically signed by: Deacon Cummings M.D. Salbador Granados MD IMG XR PROCEDURES Final Resu lt documented in this encounter Visit Diagnoses Not on filedocumented in this encounter Care Teams Air Brake Operator Relationship Specialty Start Date End Date Unknown, Notinfile PCP - General 05/01/21 [place] [id number] [facility] [address] [address] Surgeon Cardiothoracic Surgery 05/01/21 documented as of this encounter
--- OUTSIDE RECORDS SUMMARY | 2024-06-21 19:56 | XMS_ITS | Encounter Summary ---
Author Organization [facility] Healthcare Address [address] [place] [address] Care Team Providers Care Obstetrician/Gynecologist Name Role Phone Unknown, Notinfile Primary Care Provider Unavail able Salbador Granados MD Unavailable [phone] Encounter Details Date Type Department Care Team (Latest Contact Info) Description 05/14/2021 4:42 AM PATTERN ILLUSTRATOR - 05/14/2021 11:59 PM PATTERN ILLUSTRATOR Hospital Encounter [facility] Diagnostic Imaging [id number] [phone] Discharge Disposition: Discharge to home or self [...] on file Legal Sex Male 11:30 PM PATTERN ILLUSTRATOR Gender Identity Not on file Sexual Orientation [...] Comments XR CHEST 1 VIEW IP Routine 05/14/2021 6:07 AM PATTERN ILLUSTRATOR documented in this encounter Results * XR Chest 1 View (05/14/2021 6:07 AM PATTERN ILLUSTRATOR) Anatomical Region Laterality Modality Body, Chest N/A Computed Radiogr aphy 05/14/2021 8:33 AM PATTERN ILLUSTRATOR Impressions 05/14/2021 8:33 AM PATTERN ILLUSTRATOR Mild vascular congestion. Electronically signed by: Elvira Blackman M.D. Narrative 05/14/2021 8:33 AM PATTERN ILLUSTRATOR EXAMINATION: XR CHEST 1 VIEW HISTORY: The patient is a 60-year-old male who has had prior bypass surgery. Comparison made with the previous study dated 05/09/2021. TECHNIQUE: AP portable view of the chest. FINDINGS: Borderline cardiomegaly with aortic atherosclerosis. ??Slight haziness of the vascular markings. ??No focal infiltrate. ??The distal tip of a retracted [place]-Radha catheter is in the superior vena cava. [...] infiltrate. The distal tip of a retracted [place]-Radha catheter is in the superior vena cava. IMPRESSION: Mild vascular congestion. Electronically signed by: Elvira Blackman M.D. us Varsha Crowder BIOLOGICAL PHOTOGRAPHER IMG XR PROCEDURES Final Re sult documented in this encounter Visit Diagnoses Not on filedocumented in this encounter Care Teams Obstetrician/Gynecologist Relationship Specialty Start Date End Date Unknown, Notinfile PCP - General 05/01/21 [place] [address] [facility] [address] [address] Surgeon Cardiothoracic Surgery 05/01/21 documented as of this encounter
--- OUTSIDE RECORDS SUMMARY | 2024-06-21 19:58 | XMS_ITS | Encounter Summary ---
Author Organization [facility] Healthcare Address [address] [place] [address] Care Team Providers Care Assembler Deck And Hull Name Role Phone Unknown, Notinfile Primary Care Provider Unavail able Rhina Granados MD Unavailable Encounter Details Date Type Department Care Team (Late st Contact Info) Description 05/04/2021 12:[address] DESIGN ENGINEER - 05/04/2021 6:[address] DESIGN ENGINEER Surgery [facility] Operating Room [address] [place] [address] Rhina Granados MD [id number] [place] [address] [address] CORONARY ARTERY BYPASS GRAFT x 4 - LEFT INTERNAL MAMMARY ARTERY TAKEDOWN, RIGHT SAPHENOUS VEIN ENDOHARVEST, CARDIOPULMONARY BYPASS, TRANSESOPHAGEAL ECHOCARDIOGRAM Surgery Details Date/Time Status Location OR Service Patient Class Case Class Case Type Trauma Case? 05/04/2021 12:00 PM Posted OPERATING ROOM OR Cardiothoracic Inpatient Urgent - 24 hours Panel 1 Procedure LRB Anes Op Region Wound Class Comments CORONARY ARTERY BYPASS GRAFT x 4 - LEFT INTERNAL MAMMARY ARTERY TAKEDOWN, RIGHT SAPHENOUS VEIN ENDOHARVEST, CARDIOPULMONARY BYPASS, TRANSESOPHAGEAL ECHOCARDIOGRAM N/A Cardiac Chest Class I - Clean Surgeon Surgeon Role Service Panel Timothy Fletcher MD Fellow Urology 1 Rhina Granados MD Primary Cardiothoracic 1 documented in this encounter Social History [...] on file Legal Sex Male 11:[address] DESIGN ENGINEER Gender Identity Not on file Sexual Orientation Not on file documented as of this encounter Last Filed Vital Signs Vital Sign Reading Time Taken Comments Blood Pressure 101/51 05/04/2021 1:[address] DESIGN ENGINEER Pulse 85 05/04/2021 1:[address] DESIGN ENGINEER Temperature 36.7 ??C (98.1 ??F) 05/04/2021 9:00 AM CS T Respiratory Rate 15 05/04/2021 1:[address] DESIGN ENGINEER Oxygen Saturation 95% 05/04/2021 1:[address] DESIGN ENGINEER Inhaled Oxygen Concentration - - Weight 91.3 kg (201 lb 4.5 oz) 05/04/2021 4:[address] DESIGN ENGINEER Height 175.3 cm (5' 9 ) 05/02/2021 12:[address] DESIGN ENGINEER Body Mass Index 24.83 05/25/2021 5:[address] DESIGN ENGINEER documented in this encounter Discharge Summaries * Anibal Lara MD - 06/03/2021 11:26 AM CST Inpatient Discharge Summary BRIEF OVERVIEW Admitting Provider: Nalini Clayton MD Discharge Provider: Robbie Celeste MD Primary Care Physician at Discharge: Unknown, Notinfile None Admission Date: 05/01/2021 Discharge Date: 06/03/2021 Admission Location: [facility] Hospital Problems/Diagnoses: Principal Problem: ST elevation myocardial infarction (STEMI) ([facility]) Resolved Problems: No resolved hospital problems. DETAILS OF HOSPITAL STAY Presenting Problem/History of Present Illness: Chest pain Hospital Course: Patient is a 60 y.o. male with past medical history of CAD status post AZ, hypertension, hyperlipidemia, PVD, COPD and tobacco abuse who presented to the hospital due to chest pain. Per review of therecords patient had bladder surgery yesterday at [facility]. He was dischargedhome but returned back to the hospital due to dizziness. He states he was trying to go home when hesuddenly felt dizzy and broke out in a sweat. After arrival to [facility] patient complained chest pain and repeat EKG was performed which showed ST elevation in anterior chest leads. Due to the above patient was transferred to [facility] for further evaluation and care. On [...] beta octavia 2. Acute hypoxemic respiratory failure: 07/22 COVID-. Transferred to ICU 05/17 for worsening hypoxemia/increased [...] evacuation by urology on 05/14. TURBT at [facility] [place]. Osorio catheter in place. Voiding trial today. [...] Instructions for follow-up (appointment date and time): [id number] Recommend to eat a generally healthy diet [...] medication as directed by your doctor. Call [phone] to speak with a dietitian about any diet related concerns. Recommend to follow up with outpatient nutrition counseling, ask your doctor for a referral and call [phone] to make an appointment. Other Instructions Ambulatory referral to Home Health Service Line: Home Health Primary disciplines requested: Long Term Home Health Services: Wound/ Ostomy Care Physician [...] route every day Generic drug: pantoprazole DR koehler-docusate 8.6-50 mg Take 2 tablets by mouth every 12 (twelve) hours Commonly known as: PERICOLACE sodium bicarbonate 650 mg tablet Take 2 tablets (1,300 mg total) by mouth 2 (two) times a day Outpatient Follow-Up: Future Appointments Date Time Provider Department Center 06/16/2021 2:00 PM Rhina Granados MD [facility] [place] Contact Information for Follow-ups [facility] Home Care Services Specialty: Home Health and Hospice [address] [facility] [address] Next Steps: Follow up Questions: Service Line: Home Health Primary disciplines requested: Long Term Home Health Services: Wound/ Ostomy Care Physician [...] Cardiovascular Disease, Internal Medicine Relationship: Referring Physician [facility]iah[facility]abel [facility] [id number] Next Steps: Follow up Instructions: 2 weeks Questions: Instructions for follow-up (appointment date and time): 2 weeks To provider: NALINI CLAYTON DESIGN ENGINEER documented in this encounter Discharge Instructions * Discharge Instr - Diet* Cristina Anaya RD - 05/05/2021 3:[address] DESIGN ENGINEER Recommend to eat a generally healthy diet [...] medication as directed by your doctor. Call [phone] to speak with a dietitian about any diet related concerns. Recommend to follow up with outpatient nutrition counseling, ask your doctor for a referral and call [phone] to make an appointment. DESIGN ENGINEER documented in this encounter Medications at Time [...] 06/03/2021 3:39 PM CST Nephrology Progress Note [facility] SUBJECTIVE 06/03/21 Weak but better. DC [...] (four) times a day as needed for cough, Disp: 120 mL, [...] Aortic atherosclerosis. No failure. The right IJ Guadalupita-Radha catheter has been retracted with its tip [...] with left pleural fluid decreasing. No pneumothorax. Guadalupita-Radha catheter remainsin place Impression: Decreasing failure, atelectasis [...] with left pleural fluid decreasing. No pneumothorax. Guadalupita-Radha catheter remains in place Impression: Decreasing failure, [...] atelectasis with left pleural fluid. No pneumothorax. Guadalupita-Radha catheter remains in place Impression: Decreasing failure. No pneumothorax. Electronically signed by: Deacon Cummings M.D. XR Chest 1 View - Portable - in AM Result Date: 05/07/2021 Narrative: EXAMINATION: XR CHEST 1 VIEW DATE: 05/07/2021 3:55 AM HISTORY: 60-year-old man follow-upcardiac surgery FINDINGS:Compared with study of the previous day, postsurgical changes in the heartand mediastinum with cardiomegaly are stable. Guadalupita-Radha catheter remains in place. Left thoracostomy tube [...] Interval placement of endotracheal tube, nasogastric tube, Guadalupita-Radha catheter, left thoracostomy tube and mediastinal drain [...] Echo (TTE) Limited Result Date: 05/07/2021 Narrative: [place] [address] Limited Echocardiogram Report Patient Name: DEEPAK ALVARADO : 1960 StudyDate: 05/07/2021 12:16:52 PM Gender: M Tech: Location: [place] [address] Ref.Provider: RHINA GRANADOS Height(Cm): 175 BSA: 2.1 [...] tamponade. Electronically Signed By: Gianni Francois MD, [facility] :54:09 ROAD DESIGN ENGINEER Transthoracic Echo Complete W Doppler/CF Result Date: 05/02/2021 Narrative: [place] [address] Echocardiogram Report Patient Name: DEEPAK ALVARADO W : 1960 Study Date: 05/02/2021 8:50:02 AM Gender: M Tech: SR Location: [id number] Ref Provider: NALINI CLAYTONHeight(Cm): 175 BSA: 2.11 [...] valve. Electronically Signed By: Rylee Brito DO, [facility], [place], [facility] 2021-05-02 14:07:25 ROAD DESIGN ENGINEER CC: CC: CC: ASSESSMENT/PLAN Hyponatremia from SIADH [...] with decompensation Continue diuresis, diuretics stopped by drift miner. RHC not done. Agree with Chandu. ?? [...] -monitor ?? I can be reached at [phone] with any concerns. Thank you No att. providers found for the consult. Yves Weinberg MD [employer] [phone] DESIGN ENGINEER * Shruthi Hu COTA - 06/03/2021 3:13 [...] THEM NOW. CAITIE Tinsley 06/03/21 3:18 PM DESIGN ENGINEER * Jose Garner MD - 06/03/2021 2:46 PM CST [...] 06/04/21 0559 05/17/216 al & mag hydroxide jiphzhhnvau-cvvznhrfquopmrs-hqrgitcuw-nystatin (MAGIC MOUTHWASH) suspension 1-1-1-1 20 mL swish [...] acetaminophen ? ? al & mag hydroxide krvjjbrawzx-ediplnsolzhyuvq-oimjthdmu-nystatin ??? albuterol HFA ??? dextrose OR dextrose [...] 5. Continue supportive care Jose Garner MD [facility] Call [phone] 06/03/2021 2:46 PM DESIGN ENGINEER * Roya Marquez, LABORATORY HELPER - 06/03/2021 11:38 AM CST Physical Therapy Patient refused therapy secondary to being discharged today. Asked if he would like to ambulate before he left and he states no , Reviewed sternal precautions and energy conservation w/patient. Cosigned by Hammad Camara, PT at 06/03/2021 4:[address] DESIGN ENGINEER DESIGN ENGINEER DESIGN ENGINEER * Lc Perez MD - 06/03/2021 10:34 AM CST Pulmonary Daily Progress Chief complaint/reason for consult: Respiratory failure. Interval History: Patient wean down to room air. Afebrile no other significant distress. COVID positive 05/19/21 Presenting History: 60 yo man w COPD, DM, CAD/stents admitted 05/01/21 with chest pain. Had recent hematuria as well. Workup revealed an acute AZ. Cath showed multi-vessel CAD. Had balloon pump [...] acetaminophen ? ? al & mag hydroxide gpysquslxnr-ninaatokxavuvoo-fujundozw-nystatin ??? albuterol ??? dextrose OR dextrose ??? [...] Assessment and Plan: Acute respiratory failure Acute AZ w CAD s/p CABG x 4 on [...] Scheduled albuterol Increase activity as tolerated perspective DESIGN ENGINEER * Nalini Clayton MD - 06/03/2021 10:04 AM CST [facility] - Cardiology [facility] Progress Note Admit [...] found for: T3FREE No results found for: Q3CSAFH Meds MEDICATIONS FOR CURRENT ENCOUNTER: SCHEDULED MEDICATIONS: [...] 1429 ? ? al & mag hydroxide lgmynavwxww-ldsbzryyemnfjgh-oldxihieh-nystatin (MAGIC MOUTHWASH) suspension 1-1-1-1 20 mL swish [...] oral QID PRN 200 mg at 05/25/21 7373 ??? ondansetron (ZOFRAN) injection 4 mg 4 [...] HLD -stable??on Statin ?? Nalini Clayton MD DESIGN ENGINEER * Deirdre Hoskins RRT - 06/03/2021 9:58 [...] $ Pulmonary Stress Test Pulm Stress Test DESIGN ENGINEER * Angelo Vance MD - 06/02/2021 9:27 PM CST Infectious Disease Deepak Alvarado Admit Date: 05/01/2021 LOS: 32 Days Subjective No new issues. Patient about the same ROS Denies n/v/d/f/chills/sob/cp. States feeling better Anti-infectives (From admission, onward) Start Dose/Rate Route Frequency Ordered Stop 05/30/21 9902 cefepime (MAXIPIME) 2,000 mg in sodium chloride 0.9% 100 mL IVPB 2,000 mg 200 mL/hr over 30 Minutes intravenous Every 12 hours 05/30/21 1008 05/30/21 0600 vancomycin (VANCOCIN) 1,750 mg in sodium chloride 0.9% 500 mL IVPB 1,750 mg 258.8 mL/hr over 120 Minutes intravenous Every 12 hours 05/29/21 1919 06/04/21 0559 05/17/212115 al & mag hydroxide ztxczizzvbe-ezlrmxvmdcbzjqx-gjihkrtza-nystatin (MAGIC MOUTHWASH) suspension 1-1-1-1 20 mL swish [...] 0539 05/31/21 0539 BUN SERUM mg/dL -- 13 -- 16 CREATININE mg/dL 0.52* < > [...] acetaminophen ? ? al & mag hydroxide igiduukkldl-zmpbzfkrxzqwepx-lpgyympet-nystatin ??? albuterol ??? dextrose OR dextrose ??? [...] Plan: 1. Continue vanc and cefepime until 12/17. Can dc on PO atbx if discharged earlier 2. Continue treatment for COVID per attending 3. Rhino virus may have been present on admission 4. Continue monitor labs and vs trends. Follow WBC 5. Continue supportive care Angelo Vance MD [facility] Call [phone] 06/02/2021 9:27 PM DESIGN ENGINEER * Yves Weinberg MD - 06/02/2021 8:49 PM CST Nephrology Progress Note [facility] SUBJECTIVE 06/02/21 Cough and dyspnea better. [...] 1429 ? ? al & mag hydroxide jauopatbqsj-tykjxoqiquqbhll-vxsylvoje-nystatin (MAGIC MOUTHWASH) suspension 1-1-1-1, 20 mL, swish [...] Silviano Huddleston NP, 3.125 mg at 06/02/21 175 ??? cefepime (MAXIPIME) 2,000 mg in sodium [...] Nightly, Silviano Huddleston NP, 1 Units at 06/02/214 ??? midodrine (PROAMATINE) tablet 15 mg, 15 [...] Q12H, Silviano Huddleston NP, 17 g at 06/02/21 0908 ??? QUEtiapine (SEROquel) tablet 50 mg, 50 [...] Aortic atherosclerosis. No failure. The right IJ Guadalupita-Radha catheter has been retracted with its tip [...] with left pleural fluid decreasing. No pneumothorax. Guadalupita-Radha catheter remainsin place Impression: Decreasing failure, atelectasis [...] with left pleural fluid decreasing. No pneumothorax. Guadalupita-Radha catheter remains in place Impression: Decreasing failure, [...] atelectasis with left pleural fluid. No pneumothorax. Guadalupita-Radha catheter remains in place Impression: Decreasing failure. No pneumothorax. Electronically signed by: Deacon Cummings M.D. XR Chest 1 View - Portable - in AM Result Date: 05/07/2021 Narrative: EXAMINATION: XR CHEST 1 VIEW DATE: 05/07/2021 3:55 AM HISTORY: 60-year-old man follow-upcardiac surgery FINDINGS:Compared with study of the previous day, postsurgical changes in the heartand mediastinum with cardiomegaly are stable. Guadalupita-Radha catheter remains in place. Left thoracostomy tube [...] Interval placement of endotracheal tube, nasogastric tube, Guadalupita-Radha catheter, left thoracostomy tube and mediastinal drain [...] Echo (TTE) Limited Result Date: 05/07/2021 Narrative: [place] [id number] Limited Echocardiogram Report Patient Name: DEEPAK ALVARADO : 1960 StudyDate: 05/07/2021 12:16:52 PM Gender: M Tech: Location: [place] [address] Ref.Provider: RHINA GRANADOS Height(Cm): 175 BSA: 2.1 [...] tamponade. Electronically Signed By: Gianni Francois MD, [facility] 2021-05-07 12:54:09 ROAD DESIGN ENGINEER Transthoracic Echo Complete W Doppler/CF Result Date: 05/02/2021 Narrative: [address] [address] Echocardiogram Report Patient Name: DEEPAK ALVARADO W : 1960 Study Date: 05/02/2021 8:50:02 AM Gender: M Tech: Location: [id number] Ref Provider: NALINI CLAYTONHeight(Cm): 175 BSA: 2.11 [...] The right atrium is normal in size. AorticValve: Normal structure of the aortic valve. No evidence of hemodynamically significant aortic stenosis by Doppler. No aortic regurgitation. Mitral Valve: Normal structure of the mitral valve. Trivial regurgitation of the mitral valve. Pulmonic Valve: Pulmonic valve not well visualized. Trivial regu rgitation in the pulmonic valve. Tricuspid Valve: Normal [...] Brito, , FACJustyna, [place], [facility] 2021-05-02 14:07:25 ROAD DESIGN ENGINEER CC: CC: CC: ASSESSMENT/PLAN Hyponatremia from SIADH [...] with decompensation Continue diuresis, diuretics stopped by drift miner. RHC not done. Agree with Corlanor. ?? [...] -monitor ?? I can be reached at [phone] with any concerns. Thank you Robbie Celeste MD for the consult. Yves Weinberg MD [employer] [phone] DESIGN ENGINEER * Robbie Celeste MD - 06/02/2021 3:34 [...] 1429 ? ? al & mag hydroxide yiyohfthiaq-gvhhclvbpoivqrw-owfffdskd-nystatin (MAGIC MOUTHWASH) suspension 1-1-1-1 20 mL swish [...] oral QID PRN 200 mg at 05/25/21 9963 ??? ondansetron (ZOFRAN) injection 4 mg 4 [...] ST elevation myocardial infarction (STEMI) ([facility]) 05/01/2021 Assessment/Plan: 1. Acute anterior STEMI: [...] evacuation by urology on 05/14. TURBT at [place]. Osorio catheter in place. Voiding trial today. 9. V.fib 05/03: brief. Received amiodarone, dobutamine gtt. 10. DM2: continue SSI 11. Acute blood loss anemia: received blood transfusion 12. Tobacco smoking 13. Code status: Full code. 14. PT and OT evaluation. Robbie Celeste MD [facility] Pager #: [phone] This note is dictated and transcribed by [employer] direct software. Manager Customer variances may occur. Despite proof reading, typographical errors may occur. DESIGN ENGINEER Narciso Brice MD - 06/02/2021 11:50 AM CST Pulmonary [...] hematuria as well. Workup revealed an acute AZ. Cath showed multi-vessel CAD. Had balloon pump [...] acetaminophen ? ? al & mag hydroxide nbpwqiferfn-jiplnazbkykxnpz-gyfisvzcp-nystatin ??? albuterol ??? dextrose OR dextrose ??? [...] Assessment and Plan: Acute respiratory failure Acute AZ w CAD s/p CABG x 4 on [...] Scheduled albuterol Increase activity as tolerated perspective DESIGN ENGINEER * Amie Downey [facility] - 06/02/2021 11:37 AM CST Pharmacokinetic Consult [...] Day 8 of therapy Amie Downey RPh DESIGN ENGINEER * Shruthi Hu COTA - 06/02/2021 10:35 AM CST Occupational Therapy NOTE / SESSION TYPE: DAILY PROGRESS / TREATMENT Patient's Name: Deepak Alvarado Age / Sex: 60 y.o. / male Room: [place] [address] : 1960 Date of service: 06/02/21 TIME [...] Yes Completed patient handoff and notified MANAGER RESEARCH DEVELOPMENT / RN, name: REGINA, of patient's location [...] AT EOB > STANDING AT EOB WITH LAP GRINDER PER THERAPIST CGA AND INTERMITTENT MOD ASSIST FOR CORRECTION OF X 1 MODERATE LOB DURING FUNCTIONAL MOBILITY TRANSFER FROM STANDING AT EOB > SEATED AT STANDARD TOILET WITH LAP GRINDER AND UTILIZATION OF MANCILLA VS. GRAB BARS FOR EXTRA STABILITY/BALANCE CGA FROM SEATED AT STANDARD TOILET > STANDING AT STANDARD TOILET WITH TOILET GRAB BARS CGA FOR SIT <> STAND FROM SEATED AT FOLD-DOWN SHOWER BENCH <> STANDING AT SHOWER GRAB BARS TO COMPLETE BATHING TASKS CGA WITH LAP GRINDER FOR FUNCTIONAL MOBILITY TRANSFER FROM STANDING AT SHOWER GRAB BARS > SEATED AT BEDSIDE CHAIR TUB / SHOWER TRANSFER LOCATION: WET WALK-IN SHOWER OVERALL ASSIST LEVEL: INCIDENTAL TOUCHING ASSISTANCE DEVICE: GRAB BARS ADDITIONAL DOCUMENTATION: REQUIRED CGA WITH LAP GRINDER FROM STANDING AT STANDARD TOILET > SEATED [...] Chiara Fonseca OT at 06/02/2021 4:[address] DESIGN ENGINEER DESIGN ENGINEER DESIGN ENGINEER DESIGN ENGINEER * Cristina Serrano, EFREN - 06/02/2021 9:55 [...] No CV recs, pending SNF placement Cristina Serrano NP, MSN, ANP-[facility] 06/02/2021 9:59 AM Cosigned by Lester Batista MD at 06/02/2021 10:[address] DESIGN ENGINEER DESIGN ENGINEER DESIGN ENGINEER * Narciso Mayer MD - 06/01/2021 3:24 [...] hematuria as well. Workup revealed an acute AZ. Cath showed multi-vessel CAD. Had balloon pump [...] acetaminophen ? ? al & mag hydroxide rvnnjhnomtn-jlsinymhcbkhmhk-ooyqibppg-nystatin ??? albuterol ??? dextrose OR dextrose ??? [...] Assessment and Plan: Acute respiratory failure Acute AZ w CAD s/p CABG x 4 on [...] Scheduled albuterol Increase activity as tolerated perspective DESIGN ENGINEER * Yves Weinberg MD - 06/01/2021 1:30 PM CST Nephrology Progress Note [facility] SUBJECTIVE 06/01 Doing a little better. [...] mg, 650 mg, oral, Q6H PRN, Silviano Huddleston, EFREN, 650 mg at 05/29/21 1429 ? ? al & mag hydroxide wznjnvsztxe-usbwizbmmtybrwo-isfepaowo-nystatin (MAGIC MOUTHWASH) suspension 1-1-1-1, 20 mL, swish & spit, Q4H PRN, Silviano Huddleston NP ??? albuterol 2.5 mg /3 mL (0.083 %) nebulizer solution 2.5 mg, 2.5 mg, nebulization, Q4H PRN (RT),Silviano Huddleston NP, 2.5 mg at 05/17/214 ??? albuterol HFA (PROVENTIL HFA,VENTOLIN HFA,PROAIR HFA) 90 mcg/actuation inhaler 8 puff, 8 puff, inhalation, Q4H While awake (RT), Silviano Huddleston NP, 8 puff at 06/01/21 08 ??? aspirin enteric coated tablet 81 mg, 81 mg, oral, Daily, Silviano Huddleston NP, 81 mg at 06/01/21900 ??? atorvastatin (LIPITOR) tablet 80 mg, 80 mg, oral, Nightly, iSlviano Huddleston NP, 80 mg at 05/31/212148 ??? [...] Daily, Silviano Huddleston NP, 10 mg at 06/01/219[address] ??? dextrose oral liquid liquid 15 g, 15 g, oral, Q15 Min PRN OR dextrose (D10W) 10% bolus 250 mL, 250 mL, intravenous, Q15 Min PRN, Silviano Huddleston NP ??? dextrose oral liquid liquid 15 g, 15 g, oral, Q15 Min PRN OR [DISCONTINUED] dextrose (D10W)10% bolus 250 mL, 250 mL, intravenous, Q15 Min PRN, EllenAnibal Vargas MD ??? enoxaparin (LOVENOX) syringe 40 mg, [...] Nightly, Silviano Huddleston NP, 1 Units at 05/31/212199 ??? midodrine (PROAMATINE) tablet 15 mg, 15 [...] 2 tablet, 2 tablet, oral, Q12H, Silviano Huddleston, EFREN, 2 tablet at 06/01/21 0901 ??? sodium bicarbonate tablet 1,300 mg, 1,300 mg, oral, BID, Silviano Huddleston, BUTCHER OR SMALLGOODS MAKER, 1,300 mg at 06/01/21 0901 ??? sodium chloride 0.9% flush 0.5-20 mL, 0.5-20 mL, intra-catheter, Q8H LEAH, Silviano Huddleston, BUTCHER OR SMALLGOODS MAKER, 10 mL at 06/01/21 0526 ??? vancomycin (VANCOCIN) 1,750 mg in sodium chloride 0.9% 500 mL IVPB, 1,750 mg, intravenous, Q12H, Silviano Huddleston, BUTCHER OR SMALLGOODS MAKER, Last Rate: 258.8 mL/hr at 06/01/21 0645, [...] Aortic atherosclerosis. No failure. The right IJ Guadalupita-Radha catheter has been retracted with its tip [...] with left pleural fluid decreasing. No pneumothorax. Guadalupita-Radha catheter remainsin place Impression: Decreasing failure, atelectasis [...] with left pleural fluid decreasing. No pneumothorax. Guadalupita-Radha catheter remains in place Impression: Decreasing failure, [...] atelectasis with left pleural fluid. No pneumothorax. Guadalupita-Radha catheter remains in place Impression: Decreasing failure. No pneumothorax. Electronically signed by: Deacon Cummigns M.D. XR Chest 1 View - Portable - in AM Result Date: 05/07/2021 Narrative: EXAMINATION: XR CHEST 1 VIEW DATE: 05/07/2021 3:55 AM HISTORY: 60-year-old man follow-upcardiac surgery FINDINGS:Compared with study of the previous day, postsurgical changes in the heartand mediastinum with cardiomegaly are stable. Guadalupita-Radha catheter remains in place. Left thoracostomy tube [...] Interval placement of endotracheal tube, nasogastric tube, Guadalupita-Radha catheter, left thoracostomy tube and mediastinal drain [...] Echo (TTE) Limited Result Date: 05/07/2021 Narrative: [place] [address] Limited Echocardiogram Report Patient Name: DEEPAK ALVARADO : 1960 StudyDate: 05/07/2021 12:16:52 PM Gender: M Tech: Location: [id number] Ref.Provider: RHINA GRANADOS Height(Cm): 175 BSA: 2.1 [...] tamponade. Electronically Signed By: Gianni Francois MD, [facility] :54:09 ROAD DESIGN ENGINEER Transthoracic Echo Complete W Doppler/CF Result Date: 05/02/2021 Narrative: [place] [address] Echocardiogram Report Patient Name: DEEPAK ALVARADO W : 1960 Study Date: 05/02/2021 8:50:02 AM Gender: M Tech: Location: [place] [address] Ref Provider: NALINI CLAYTONHeight(Cm): 175 BSA: 2.11 [...] Signed By: Rylee Brito, , FACC, [place], [facility] 2021-05-02 14:07:25 ROAD DESIGN ENGINEER CC: CC: CC: ASSESSMENT/PLAN Hyponatremia from SIADH [...] with decompensation Continue diuresis, diuretics stopped by drift miner. RHC not done. Agree with Corlanor. ?? [...] -monitor ?? I can be reached at [phone] with any concerns. Thank you Rhina Granados MD for the consult. Yves Weinberg MD [employer] [phone] DESIGN ENGINEER * Roya Marquez, LABORATORY HELPER - 06/01/2021 11:26 AM CST Physical Therapy [...] established deficits and goals. DISCHARGE LOCATION RECOMMENDATIONS: LONG-TERM ACUTE [facility] If this is the last note, please consider this the discharge summary. DESIGN ENGINEER * Lc Simons MD - 06/01/2021 11:05 [...] 1429 ? ? al & mag hydroxide mdretoqewnh-znzlfwulawjtpuz-sgadvgkta-nystatin (MAGIC MOUTHWASH) suspension 1-1-1-1 20 mL swish [...] ST elevation myocardial infarction (STEMI) ([facility]) 05/01/2021 Assessment/Plan: 1. Acute anterior STEMI: [...] evacuation by urology on 05/14. TURBT at [place]. Osorio catheter in place. p 9. V.fib 05/03: brief. Received amiodarone, dobutamine gtt. 10. DM2: continue SSI 11. Acute blood loss anemia: received blood transfusion 12. Tobacco smoking Lc Simons MD [facility] Pager #: [phone] This note is dictated and transcribed by [employer] direct software. Manager Customer variances may occur. Despite proof reading, typographical errors may occur. DESIGN ENGINEER * Angelo Vance MD - 06/01/2021 10:50 [...] Every 12 hours 05/29/21 1919 06/04/21 0559 05/17/21 2116 al & mag hydroxide tqqodlvoctb-vjczztedhphsaym-zfzghpzjc-nystatin (MAGIC MOUTHWASH) suspension 1-1-1-1 20 mL swish & spit Every 4 hours PRN 05/17/21 2117 Data Vitals: 06/01/21 0400 06/01/21 0735 06/01/21 [...] acetaminophen ? ? al & mag hydroxide qhgexscafeh-ffqgujseinkdzmz-zvfsfpdad-nystatin ??? albuterol ??? dextrose OR dextrose ??? [...] 5. Continue supportive care Angelo Vance MD [facility] Call [phone] 06/01/2021 10:50 AM DESIGN ENGINEER * Xiomy Hidalgo, RD - 06/01/2021 10:44 AM CST Nutrition Assessment Reason for Assessment: Follow Up Encounter Date: 06/01/21 10:44 AM Nutrition Assessment and Plan: Patient is a 60 y.o. male. Admit Dx: STEMI. Admitted on 05/01/2021, current LOS is 31 days. Pt did not answer phone call during time of assessment, unable to obtain further subjective information at this time. Pt on [facility], [facility] soft diet with varied intakes (average 81%,adequate). Will continue to send ONS to help meet increased nutritional needs d/t COVID+. Per rod greaser, last BM documented (05/28). Pt currently receiving [...] Weight Used for Estimated Kcals: Current ?? [facility] Total Energy Needs: 2000.25 kcal using Activity Factor: 1.25 ?? [facility] Total Energy Needs + Fever Factor: 2001.25 [...] medication as directed by your doctor. Call [phone] to speak with a dietitian about any diet related concerns. Recommend to follow up with outpatient nutrition counseling, ask your doctor for a referral and call [phone] to make an appointment. Nutrition Follow-Up : 06/08/[address],LD DESIGN ENGINEER * Shruthi Hu COTA - 06/01/2021 10:38 AM CST Occupational Therapy NOTE / SESSION TYPE: DAILY PROGRESS / TREATMENT Patient's Name: Deepak Alvarado Age / Sex: 60 y.o. / male Room: [place] [id number] : 1960 Date of service: 06/01/21 TIME [...] Yes Completed patient handoff and notified MANAGER RESEARCH DEVELOPMENT / RN, name: SUZIE, of patient's location [...] DIFFICULTY Mobility / Transfers: Bed Mobility: MIN PIZZ-DL-[id number] ASSIST FROM SUPINE WITH HOB ELEVATED > SEATED AT EOB WITH UTILIZATION OF LOG-ROLL TECHNIQUE TO MAINTAIN STERNAL PRECAUTIONS Transfer(s): CGA FROM SEATED AT EOB > STANDING AT EOB WITH AFXU-OR-UJIS ASSIST PER THERAPIST CGA/ [id number]-LE-[id number] ASSIST FROM STANDING AT EOB > SEATED [...] Chiara Fonseca OT at 06/01/2021 5:[address] DESIGN ENGINEER DESIGN ENGINEER DESIGN ENGINEER DESIGN ENGINEER * Shima Paulson, [employer] - 06/01/2021 9:20 AM CST Daily Progress [...] No CV recs, pending SNF placement [facility] 06/01/2021 9:20 AM Cosigned by Blue Cooley Jr., MD at 06/01/2021 9:[address] DESIGN ENGINEER DESIGN ENGINEER DESIGN ENGINEER * Mae Covington, [facility] - 06/01/2021 12:10 AM CST Pharmacokinetic Consult [...] Day 6 of therapy Mae Covington RPh DESIGN ENGINEER * Yves Weinberg MD - 05/31/2021 2:12 PM CST Nephrology Progress Note [facility] SUBJECTIVE 05/31 Na 132, Cr normal. [...] 1429 ? ? al & mag hydroxide ddlmcxiaaly-eykhezobpzycslb-dzcvhcsli-nystatin (MAGIC MOUTHWASH) suspension 1-1-1-1, 20 mL, swish [...] Daily, Varsha Crowder NP, 81 mg at 05/31/21 0758 ??? atorvastatin (LIPITOR) tablet 80 mg, 80 mg, oral, Nightly, Rhina Granados MD, 80 mg at 05/30/212112 ??? carvediloL (COREG) tablet 3.125 mg, 3.125 mg, oral, BID with meals (bkfst, dinner), Nalini Clayton MD, 3.125 mg at 05/29/21 173 ??? cefepime (MAXIPIME) 2,000 mg in sodium chloride 0.9% 100 mL IVPB, 2,000 mg, intravenous, Q12H, Angelo Vance MD, Last Rate: 200 mL/hr at 05/31/21 0552, 2,000 mg at 05/31/21 0552 ??? clopidogreL (PLAVIX) tablet 75 mg, 75 mg, oral, Daily, Alejandro Gonzalez NP, 75 mg at 05/31/21 0758 ??? dapagliflozin (FARXIGA) tablet 10 mg, 10 [...] mg, 200 mg, oral, QID PRN, Caleb Toht PA, 200 mg at 05/25/21 2353 ??? [...] Daily, Rhina Granados MD, 40 mg at 05/31/21757 ??? polyethylene glycol (MIRALAX) packet 17 g, 17 g, oral, Q12H, Elena Kelly [employer], 17 g at 05/30/212111 ??? QUEtiapine (SEROquel) [...] flush 0.5-20 mL, 0.5-20 mL, intra-catheter, Q8H [facility], Rhina Granados MD, 10 mL at 05/31/21 0552 ??? tamsulosin (FLOMAX) extended release capsule 0.4 mg, 0.4 mg, oral, Daily with dinner, Elena Kelly, [employer], 0.4 mg at 05/30/21 1710 ??? vancomycin [...] Aortic atherosclerosis. No failure. The right IJ Guadalupita-Radha catheter has been retracted with its tip [...] with left pleural fluid decreasing. No pneumothorax. Guadalupita-Radha catheter remainsin place Impression: Decreasing failure, atelectasis [...] with left pleural fluid decreasing. No pneumothorax. Guadalupita-Radha catheter remains in place Impression: Decreasing failure, [...] atelectasis with left pleural fluid. No pneumothorax. Guadalupita-Radha catheter remains in place Impression: Decreasing failure. No pneumothorax. Electronically signed by: Deacon Cummings M.D. XR Chest 1 View - Portable - in AM Result Date: 05/07/2021 Narrative: EXAMINATION: XR CHEST 1 VIEW DATE: 05/07/2021 3:55 AM HISTORY: 60-year-old man follow-upcardiac surgery FINDINGS:Compared with study of the previous day, postsurgical changes in the heartand mediastinum with cardiomegaly are stable. Guadalupita-Radha catheter remains in place. Left thoracostomy tube [...] Interval placement of endotracheal tube, nasogastric tube, Guadalupita-Radha catheter, left thoracostomy tube and mediastinal drain [...] Echo (TTE) Limited Result Date: 05/07/2021 Narrative: [place] [address] Limited Echocardiogram Report Patient Name: DEEPAK ALVARADO : 1960 StudyDate: 05/07/2021 12:16:52 PM Gender: M Tech: Location: [place] [address] Ref.Provider: RHINA GRANADOS Height(Cm): 175 BSA: 2.1 [...] tamponade. Electronically Signed By: Gianni Francois MD, [facility] 2021-05-07 12:54:09 ROAD DESIGN ENGINEER Transthoracic Echo Complete W Doppler/CF Result Date: 05/02/2021 Narrative: [place] [address] Echocardiogram Report Patient Name: DEEPAK ALVARADO W : 1960 Study Date: 05/02/2021 8:50:02 AM Gender: M Tech: Location: [id number] Ref Provider: NALINI CLAYTONHeight(Cm): 175 BSA: 2.11 [...] Signed By: Rylee Brito, , FACC, [place], [facility] 2021-05-02 14:07:25 ROAD DESIGN ENGINEER CC: CC: CC: ASSESSMENT/PLAN Hyponatremia from SIADH [...] with decompensation Continue diuresis, diuretics stopped by drift miner. RHC not done. Agree with Chandu. ?? [...] -monitor ?? I can be reached at [phone] with any concerns. Thank you Rhina Granados MD for the consult. Yves Weinberg MD [employer] [phone] DESIGN ENGINEER * Ochoa Encinas MD - 05/31/2021 1:12 PM CST Cardiology Inpatient Progress Note [facility] SUBJECTIVE: Pt had no [...] HLD -stable on Statin Ochoa Encinas MD, [facility] 05/31/2021 1:12 PM DESIGN ENGINEER * Jose Garner MD - 05/31/2021 8:57 [...] Every 12 hours 05/29/21 1919 06/04/21 0559 11/28/21 2116 al & mag hydroxide rexarcsthmc-eljbrxxvpvdmhto-hcmnbrngm-nystatin (MAGIC MOUTHWASH) suspension 1-1-1-1 20 mL swish [...] acetaminophen ? ? al & mag hydroxide tjmpjfafwgj-kikqvzueqoizdzh-sgdxgcxzd-nystatin ??? albuterol ??? dextrose OR dextrose ??? [...] trends. Follow WBC 5. Continue supportive care [facility] Call [phone] 05/31/2021 8:58 AM DESIGN ENGINEER DESIGN ENGINEER * Alejandro Pratt MD - 05/31/2021 6:42 [...] hematuria as well. Workup revealed an acute AZ. Cath showed multi-vessel CAD. Had balloon pump [...] acetaminophen ? ? al & mag hydroxide ntskucuxeaa-aalhcshjgphtbzw-edmzczyki-nystatin ??? albuterol ??? dextrose OR dextrose ??? dextrose OR [DISCONTINUED] dextrose ??? glucagon ??? guaiFENesin ??? ondansetron ROS Above review of system reviewed on 05/31/2021 Vitals: Vitals: 05/31/21 0538 05/31/21 0543 05/31/21 0553 05/31/21 0608 BP: 95/51 91/52 90/52 Pulse: 95 86 91 89 Resp: 19 Temp: TempSrc: SpO2: Weight: Height: Temp (24hrs), [...] Labs: Recent Labs Lab Units 05/31/21 0539 05/30/21 [...] Assessment and Plan: Acute respiratory failure Acute AZ w CAD s/p CABG x 4 on [...] of ICU from pulmonary perspective Chart reviewed DESIGN ENGINEER * Robbie Celeste MD - 05/31/2021 6:23 [...] 90/52 Pulse: 95 86 91 89 Resp: 17 Temp: TempSrc: SpO2: Weight: Height: I/O last 2 completed shifts: In: 1984 [P.O.:370; I.V.:1615] Out: 2905 [Urine:2905] I/O this [...] 1429 ? ? al & mag hydroxide ebxakjxqcvy-ziyqustbxpbtkzg-yjejfyiiq-nystatin (MAGIC MOUTHWASH) suspension 1-1-1-1 20 mL swish [...] oral QID PRN 200 mg at 05/25/21 8533 ??? ondansetron (ZOFRAN) injection 4 mg 4 mg intravenous Q6H PRN Lab/Radiology/Diagnostic Review: Recent Labs Lab Units 05/30/21 0405 05/29/2152705/28/21 0247 WBC K/cumm 14.4* 16.1* 12.1* HEMOGLOBIN g/dL 10.0* 10.1* 11.2* HEMATOCRIT % 29.8* 31.3* 34.3* MCV fL 92.3 91.8 91.7 PLATELETS K/cumm 467* 508* 468* Recent Labs Lab Units 05/30/21200805/30/21 1717 05/30/21 1208 05/30/21 0754 05/30/21 0405 05/29/21 0801 05/29/2152705/28/2143905/28/21 0247 SODIUM mmol/L -- -- -- -- [...] ST elevation myocardial infarction (STEMI) ([facility]) 05/01/2021 Assessment/Plan: 1. Acute anterior STEMKI: [...] evacuation by urology on 05/14. TURBT at [place]. Osorio catheter in place. p 9. V.fib 05/03: brief. Received amiodarone, dobutamine gtt. 10. DM2: continue SSI 11. Acute blood loss anemia: received blood transfusion 12. Tobacco smoking 13. Code status: 14. Stable for transfer to telemetry Robbie Celeste MD [facility] Pager #: [phone] This note is dictated and transcribed by [employer] Direct direct software. Manager Customer variances may occur. Despite proof reading, typographical errors may occur. Marek Go NP - 05/30/2021 8:03 PM CST Images from the original note were not included. Critical Care Medicine Daily Progress Team: [facility] Subjective Patient is a 60 y.o. y/o [...] on 04/29. He was taken to the lab support technician on 04/30 where they found in-stent thrombosis [...] the ICU. Hospital Course 04/29 Cystoscopy at [facility] 04/30 STEMI, lab support technician -> instent thrombosis, angioplasty, IABP, transfer to [facility] 05/04/21: Increased blood clot from osorio [...] acetaminophen ? ? al & mag hydroxide wbxymcfnvhs-zwwrwsyarapkoip-psjrhgfho-nystatin ??? albuterol ??? dextrose OR dextrose ??? dextrose OR [DISCONTINUED] dextrose ??? glucagon ??? guaiFENesin ??? ondansetron Objective Vitals: Most Recent: Vitals: 05/30/21 1900 BP: 115/76 Pulse: 84 Resp: 21 Temp: [...] (MAC) Number of days: 12 I/O: Date 05/29/211899 - 05/30/2165805/30/21 07 - 05/31/21 0659 Shift 8124-6593 24 Hour Total 7856-7298 4631-4778 24 Hour Total INTAKE P.O. 130 970 240 240 I.V.(mL/kg) 1615(21.2) 1615(21.2) Shift Total(mL/kg) 130(1.7) 970(12.7) 1855(24.3) 1855(24.3) OUTPUT Urine(mL/kg/hr) 1025 2550 1880(2.1) 1880 Shift Total(mL/kg) 1025(13.4) 2550(33.4) 1880(24.6) 1880(24.6) NET -895 -1580 -25 -25 Weight (kg) 76.3 76.3 76.3 76.3 76.3 [...] been reviewed with attending, Dr. Dalton Mei, [facility] [phone], [place] 1 Critical Care Medicine [facility] in [facility] Cosigned by Austin Hoffman MD at 06/09/2021 1:[address] DESIGN ENGINEER DESIGN ENGINEER DESIGN ENGINEER * Cristina Serrano NP - 05/30/2021 2:48 [...] on Statin ?? Cristina Serrano NP, MSN, [facility] 05/30/2021 2:48 PM DESIGN ENGINEER * Lc Simons MD - 05/30/2021 12:00 [...] 1429 ? ? al & mag hydroxide qlihhowohwn-uqfncwbqssairiq-newebibel-nystatin (MAGIC MOUTHWASH) suspension 1-1-1-1 20 mL swish [...] dinner) Nalini Clayton MD 3.125 mg at 05/29/211731 ??? cefepime (MAXIPIME) 2,000 mg in sodium chloride 0.9% 100 mL IVPB 2,000 mg intravenous Q12H Angelo Vance MD ??? clopidogreL (PLAVIX) tablet 75 mg 75 mg oral Daily Alejandro Gonzalez NP 75 mg at ??? dapagliflozin (FARXIGA) tablet 10 mg 10 mg oral Daily Stephen Melgar MD 10 mg at 05/30/21 09 ??? dextrose oral liquid liquid 15 g [...] meals Silviano Huddleston NP 4 Units at 05/29/211732 ??? insulin lispro (HumaLOG, ADMELOG) 100 unit/mL injection 0-5 Units 0-5 Units subcutaneous Nightly Silviano Huddleston NP 2 Units at 05/29/212148 ??? midodrine (PROAMATINE) tablet 15 mg 15 mg oral TID Silviano Huddleston NP 15 mg at 05/30/21946 ??? ondansetron (ZOFRAN) injection 4 mg 4 mg intravenous Q6H PRN Rhina Granados MD ??? pantoprazole DR (PROTONIX) extended release tablet 40 mg 40 mg oral Daily Rhina Granados MD40 mg at 05/30/21946 ??? polyethylene glycol (MIRALAX) packet 17 g 17 g oral Q12H Elena Kelly NP 17 g at 05/30/21946 ??? QUEtiapine (SEROquel) tablet 50 mg 50 mg oral Nightly Silviano Huddleston NP 50 mg at ??? senna-docusate (PERICOLACE) 8.6-50 mg per tablet 2 tablet 2 tablet oral Q12H Elena Kelly NP 2 tablet at 05/30/21946 ??? sodium bicarbonate tablet 1,300 mg 1,300 mg oral BID Yves Weinberg MD 1,300 mg at 05/30/21946 ??? sodium chloride 0.9% flush 0.5-20 mL [...] acetaminophen ? ? al & mag hydroxide sxehxsbplee-xknmbqwuvbevanv-hbobizhhy-nystatin ??? albuterol ??? dextrose OR dextrose ??? [...] and transurethral resection of bladder tumor at [facility] -s/p 20??Finnish three way catheter -holding Plavix -cysto 05/14 [...] MD [facility] Hospitalist 05/30/2021 12:00 PM DESIGN ENGINEER * Angelo Vance MD - 05/30/2021 10:06 AM CST Infectious Disease Deepak Alvarado Admit Date: 05/01/2021 LOS: 29 Days Clinical Cours Patient about the same New Symptoms Positive SOB, no Cp, no nvd, no rashes Data Vitals: 05/30/21 0630 05/30/21 0700 05/30/21 0800 05/30/21822 BP: 99/64 108/74 124/74 Pulse: 76 80 [...] acetaminophen ? ? al & mag hydroxide ntrkmhzhzem-ybqkxaifhnwefpd-ogmoignfs-nystatin ??? albuterol ??? dextrose OR dextrose ??? [...] Continue supportive care Angelo Vance MD 05/30/2021 DESIGN ENGINEER * Tereza Mccullough NP - 05/30/2021 8:40 AM CST Nephrology Progress Note [facility] SUBJECTIVE 05/30 WBC trending down.Na 131,creatinine stable.Co2 18- up from 17.Other lytes stable.BP stable.I discussed the pt. with BENCH ASSEMBLER BATTERY and his ICU nurse.Pt. has significant pneumonia.O2 [...] 1429 ? ? al & mag hydroxide acyeypoydgs-zyfcpgutioayykn-ysihxdetf-nystatin (MAGIC MOUTHWASH) suspension 1-1-1-1, 20 mL, swish [...] (RT), Ralf Tomlinson MD, 8 puff at 05/30/21 0823 ??? aspirin enteric coated tablet 81 mg, 81 mg, oral, Daily, Varsha Crowder NP, 81 mg at 05/29/21 08 ??? atorvastatin (LIPITOR) tablet 80 mg, 80 mg, oral, Nightly, Rhina Granados MD, 80 mg at 05/29/213 ??? carvediloL (COREG) tablet 3.125 mg, 3.125 [...] Simons MD, Last Rate: 258.8 mL/hr at 05/30/21517, 1,750 mg at 05/30/21517 Lab/Radiology/Diagnostic Review: Recent Results (from the past [...] Aortic atherosclerosis. No failure. The right IJ Guadalupita-Radha catheter has been retracted with its tip [...] with left pleural fluid decreasing. No pneumothorax. Guadalupita-Radha catheter remainsin place Impression: Decreasing failure, atelectasis [...] with left pleural fluid decreasing. No pneumothorax. Guadalupita-Radha catheter remains in place Impression: Decreasing failure, [...] atelectasis with left pleural fluid. No pneumothorax. Guadalupita-Radha catheter remains in place Impression: Decreasing failure. No pneumothorax. Electronically signed by: Deacon Cummings M.D. XR Chest 1 View - Portable - in AM Result Date: 05/07/2021 Narrative: EXAMINATION: XR CHEST 1 VIEW DATE: 05/07/2021 3:55 AM HISTORY: 60-year-old man follow-upcardiac surgery FINDINGS:Compared with study of the previous day, postsurgical changes in the heartand mediastinum with cardiomegaly are stable. Guadalupita-Radha catheter remains in place. Left thoracostomy tube [...] Interval placement of endotracheal tube, nasogastric tube, Guadalupita-Radha catheter, left thoracostomy tube and mediastinal drain [...] Echo (TTE) Limited Result Date: 05/07/2021 Narrative: [place] [address] Limited Echocardiogram Report Patient Name: DEEPAK ALVARADO : 1960 StudyDate: 05/07/2021 12:16:52 PM Gender: M Tech: Location: [place] [address] Ref.Provider: RHINA GRANADOS Height(Cm): 175 BSA: 2.1 [...] tamponade. Electronically Signed By: Gianni Francois MD, [facility] :54:09 ROAD DESIGN ENGINEER Transthoracic Echo Complete W Doppler/CF Result Date: 05/02/2021 Narrative: [place] [address] Echocardiogram Report Patient Name: DEEPAK ALVARADO W : 1960 Study Date: 05/02/2021 8:50:02 AM Gender: M Tech: Location: [place] [address] Ref Provider: NALINI CLAYTONHeight(Cm): 175 BSA: 2.11 [...] Electronically Signed By: Rylee Brito DO, FACC, FASMisha, FASMARA 2021-05-02 14:07:25 ROAD DESIGN ENGINEER CC: CC: CC: ASSESSMENT/PLAN Hyponatremia from SIADH [...] with decompensation Continue diuresis, diuretics stopped by drift miner. RHC not done. Agree with Chandu. ?? [...] today ?? I can be reached at [phone] with any concerns. Thank you Lc Simons MD for the consult. Tereza Mccullough NP [employer] [phone] Cosigned by Ashley Fox MD at 06/24/2021 3:[address] DESIGN ENGINEER DESIGN ENGINEER DESIGN ENGINEER * Erika Mayer NP - 05/30/2021 7:00 [...] on 04/29. He was taken to the lab support technician on 04/30 where they found in-stent thrombosis [...] the ICU. Hospital Course 04/29 Cystoscopy at [facility] 04/30 STEMI, lab support technician -> instent thrombosis, angioplasty, IABP, transfer to [facility] 05/04/21: Increased blood clot from osorio [...] acetaminophen ? ? al & mag hydroxide banknmzkrom-xqhppeysqaoxhfl-jzpakfthq-nystatin ??? albuterol ??? dextrose OR dextrose ??? [...] (MAC) Number of days: 12 I/O: Date 05/29/21699 - 05/30/2165805/30/21699 - 05/31/21 0659 Shift 9203-5212 4538-7223 24 Hour Total 7526-4852 6100-3420 24 Hour Total INTAKE P.O. 840 130 970 Shift Total(mL/kg) 840(11) 130(1.7) 970(12.7) OUTPUT Urine(mL/kg/hr) 1525(1.7) 1025(1.1) 2550(1.4) Shift Total(mL/kg) 1525(20) 1025(13.4) 2550(33.4) [facility] -915 -518 -9355 Weight (kg) 76.3 76.3 76.3 76.3 76.3 [...] has been reviewed with attending, Dr. Rao Mayer, [employer] [phone], [place] 1 Critical Care Medicine [facility] Cosigned by Trinh Yeh MD at 06/01/2021 8:[address] DESIGN ENGINEER DESIGN ENGINEER DESIGN ENGINEER * Alejandro Pratt MD - 05/30/2021 6:25 [...] hematuria as well. Workup revealed an acute AZ. Cath showed multi-vessel CAD. Had balloon pump [...] acetaminophen ? ? al & mag hydroxide dvuojotytto-xaserzallditcxx-dbosivwhx-nystatin ??? albuterol ??? dextrose OR dextrose ??? [...] Labs: Recent Labs Lab Units 05/30/21 0405 05/29/2128 05/28/21 0247 WBC K/cumm 14.4* 16.1* 12.1* [...] Assessment and Plan: Acute respiratory failure Acute AZ w CAD s/p CABG x 4 on [...] albuterol Increase activity as tolerated Chart reviewed DESIGN ENGINEER * Yves Weinberg MD - 05/29/2021 9:03 PM CST Nephrology Progress Note [facility] SUBJECTIVE 05/29/21 Remains frail. BP soft, [...] 1429 ? ? al & mag hydroxide wtoncolzbvn-gcpfpyarofsshbe-xiszykjsm-nystatin (MAGIC MOUTHWASH) suspension 1-1-1-1, 20 mL, swish [...] Nightly, Silviano Huddleston NP, 2 Units at 05/28/21 2110 ??? lidocaine (LIDODERM) 5 % patch 1 [...] Nightly, Silviano Huddleston NP, 50 mg at 05/28/217 ??? senna-docusate (PERICOLACE) 8.6-50 mg per tablet 2 tablet, 2 tablet, oral, Q12H, Martin Kelly NP, 2 tablet at 05/29/21 0946 ??? sodium bicarbonate tablet 1,300 mg, 1,300 mg, oral, BID, Yves Weinberg MD, 1,300 mg at 05/29/21 0822 ??? sodium chloride 0.9% flush 0.5-20 mL, 0.5-20 mL, intra-catheter, Q8H LEAH, Rhina Granados MD, 20 mL at 05/29/21 1400 ??? tamsulosin (FLOMAX) extended release capsule 0.4 mg, 0.4 mg, oral, Daily with dinner, Elnea Kelly NP, 0.4 mg at 05/29/21 1732 [...] Aortic atherosclerosis. No failure. The right IJ Guadalupita-Radha catheter has been retracted with its tip [...] with left pleural fluid decreasing. No pneumothorax. Guadalupita-Radha catheter remainsin place Impression: Decreasing failure, atelectasis [...] with left pleural fluid decreasing. No pneumothorax. Guadalupita-Radha catheter remains in place Impression: Decreasing failure, [...] atelectasis with left pleural fluid. No pneumothorax. Guadalupita-Radha catheter remains in place Impression: Decreasing failure. No pneumothorax. Electronically signed by: Deacon Cummings M.D. XR Chest 1 View - Portable - in AM Result Date: 05/07/2021 Narrative: EXAMINATION: XR CHEST 1 VIEW DATE: 05/07/2021 3:55 AM HISTORY: 60-year-old man follow-upcardiac surgery FINDINGS:Compared with study of the previous day, postsurgical changes in the heartand mediastinum with cardiomegaly are stable. Guadalupita-Radha catheter remains in place. Left thoracostomy tube [...] Interval placement of endotracheal tube, nasogastric tube, Guadalupita-Radha catheter, left thoracostomy tube and mediastinal drain [...] Echo (TTE) Limited Result Date: 05/07/2021 Narrative: [place] [address] Limited Echocardiogram Report Patient Name: DEEPAK ALVARADO : 1960 StudyDate: 05/07/2021 12:16:52 PM Gender: M Tech: Location: [place] [address] Ref.Provider: RHINA GRANADOS Height(Cm): 175 BSA: 2.1 [...] tamponade. Electronically Signed By: Gianni Francois MD, [facility] :54:09 RO[address] DESIGN ENGINEER Transthoracic Echo Complete W Doppler/CF Result Date: 05/02/2021 Narrative: [place] [address] Echocardiogram Report Patient Name: DEEPAK ALVARADO W : 1960 Study Date: 05/02/2021 8:50:02 AM Gender: M Tech: Location: [place] [address] Ref Provider: NALINI CLAYTONHeight(Cm): 175 BSA: 2.11 [...] valve. Electronically Signed By: Rylee Brito, , [facility], [place], [facility] 2021-05-02 14:07:25 ROAD DESIGN ENGINEER CC: CC: CC: ASSESSMENT/PLAN Hyponatremia from SIADH [...] with decompensation Continue diuresis, diuretics stopped by drift miner. RHC not done. Agree with Chandu. ?? [...] -monitor ?? I can be reached at [phone] with any concerns. Thank you Lc Simons MD for the consult. Yves Weinberg MD [employer] [phone] DESIGN ENGINEER * Marek Mei NP - 05/29/2021 8:51 [...] on 04/29. He was taken to the lab support technician on 04/30 where they found in-stent thrombosis [...] the ICU. Hospital Course 04/29 Cystoscopy at [facility] 04/30 STEMI, lab support technician -> instent thrombosis, angioplasty, IABP, transfer to [facility] 05/04/21: Increased blood clot from osorio [...] acetaminophen ? ? al & mag hydroxide prloeokwbym-bommfncfwaxtzhg-kterijquv-nystatin ??? albuterol ??? dextrose OR dextrose ??? [...] I/O: Date 05/28/211899 - 05/29/21 0659 05/29/21 07 - 05/30/21 0659 Shift 0845-8095 24 Hour Total 2429-1995 7242-0953 24 Hour Total INTAKE P.O. 1440 840 840 I.V.(mL/kg) 1535(20.1) 1648.8(21.6) IV Piggyback 450 Shift Total(mL/kg) 1535(20.1) 3538.8(46.4) 840(11) 840(11) OUTPUT Urine(mL/kg/hr) 1300 3050 1525(1.7) 1525 Shift Total(mL/kg) 1300(17) 3050(40) 1525(20) 1525(20) NET 235 488.8 -685 -685 Weight (kg) 76.3 76.3 76.3 76.3 76.3 [...] standards of care: Physical therapy/Activity: PT/OT Access: [facility] PICC (05/18) Goals of care: Full code Community PM Assessment and plan has been reviewed with attending, Dr. Dalton Mei, ACNP [phone], [place] 1 Critical Care Medicine [facility] Cosigned by Austin Hoffman MD at 06/09/2021 1:[address] DESIGN ENGINEER DESIGN ENGINEER DESIGN ENGINEER * Se Godoy, [facility] - 05/29/2021 7:21 PM CST Pharmacokinetic Consult [...] progress daily. Day 4 of therapy Se oGdoy RPh DESIGN ENGINEER * Lc Simons MD - 05/29/2021 10:49 [...] 1545 ? ? al & mag hydroxide exwlwetdadl-ujozfcypzbqqqnz-flanrrtoz-nystatin (MAGIC MOUTHWASH) suspension 1-1-1-1 20 mL swish [...] Daily Varsha Crowder NP 81 mg at 05/29/21821 ??? atorvastatin (LIPITOR) tablet 80 mg 80 mg oral Nightly Rhina Granados MD 80 mg at 05/28/212106 ??? carvediloL (COREG) tablet 3.125 mg 3.125 mg oral BID with meals (bkfst, dinner) Nalini Clayton MD 3.125 mg at 05/29/21821 ??? cefepime (MAXIPIME) 2,000 mg in sodium chloride 0.9% 100 mL IVPB 2,000 mg intravenous Q8H [facility] Angelo Vance MD ??? clopidogreL (PLAVIX) tablet [...] Elena Kelly NP 17 g at 05/29/21 09 ??? QUEtiapine (SEROquel) tablet 50 mg 50 mg oral Nightly Silviano Huddleston NP 50 mg at ??? senna-docusate (PERICOLACE) 8.6-50 mg per tablet 2 tablet 2 tablet oral Q12H Elena Kelly NP 2 tablet at 05/29/2146 ??? sodium bicarbonate tablet 1,300 mg 1,300 [...] acetaminophen ? ? al & mag hydroxide jnkhmccsozq-lxmhwhjwtiefhcw-hzewibwzy-nystatin ??? albuterol ??? dextrose OR dextrose ??? [...] and transurethral resection of bladder tumor at [facility] -s/p 20??Finnish three way catheter -holding Plavix -cysto 05/14 [...] MD Team Health Hospitalist 05/29/2021 10:49 AM DESIGN ENGINEER * Angelo Vance MD - 05/29/2021 9:45 AM CST Infectious Disease Deepak Adair Lazarus Admit Date: 05/01/2021 LOS: 28 Days Clinical [...] acetaminophen ? ? al & mag hydroxide aihtynolvsz-bjdnomxmzgwusyp-ybpzfaidt-nystatin ??? albuterol ??? dextrose OR dextrose ??? [...] Continue supportive care Angelo Vance MD 05/29/2021 DESIGN ENGINEER * Chiara Fonseca, OT - 05/29/2021 9:11 AM CST Occupational Therapy NOTE / SESSION TYPE: Weekly Progress / Interim Patient Name: Deepak Alvarado Date of : 1960 Age / Sex: 60 y.o. / male Room: [place] [address] Admit Date: 05/01/2021 Date of Service: 05/29/21 Time In: 09:11 Time Out: 09:37 Primary Diagnosis: ST elevation myocardial infarction (STEMI) ([facility]) HPI:??Deepak Alvarado??is a 60 y.o.??male??who presents with ??retrosternal chest pain accompanied bysweating and shortness of breath. Patient underwent bladder surgery (cystoscopy, clot evacuation, and transurethral resection of bladder tumor) ??at [facility] 04/30/2021 and was discharged 05/01/2021. Patient transferred to for emergent cardiac catheterization. Patient admitted with acute anterior wall AZ, s/p cardiac cath with PTCA of the [...] SUBJECTIVE: Patient Comment: I'M WAITING FOR THE COMMERCIAL DOOR INSTALLER TO COME Pain Assessment: Pre-therapy pain level: [...] Yes Completed patient handoff and notified MANAGER RESEARCH DEVELOPMENT / RN, name: MARCEL, of patient's location [...] EXCEPT 3-/5 SHOULDER FLEXION/ABDUCTION Hand Dominance: Right Puppy Trainer Strength (Right) GOOD Puppy Trainer Strength (Left): GOOD Right Serial Opposition: Decreased [...] (from Occupational Therapy) Active Problems Problem: OT [facility] Start Date: 05/07/21 Goal Start Date Expected End Date End Date OT [facility] - Mis 3 05/07/21 06/05/21 -- Goal Details: Patient will complete LE dressing with MOD I using compensatory strategies one time (GOAL CONTINUED AT TIME OF WEEKLY INTERIM ON 05/29- ) Goal Start Date Expected End Date End Date OT [facility] - [facility] 5 05/07/21 06/05/21 -- Goal Details: Patient will complete chest mobilization exercises with MINIMAL verbal cues one time to increase tolerance for ADLs GOAL UPDATED AT TIME OF WEEKLY INTERIM ON 05/29- ) Goal Start Date Expected End Date End Date OT [facility] - [facility] 7 05/15/21 06/05/21 -- Goal Details: Patient will complete UE dress with set up x1 (GOAL CONTINUED AT TIME OF WEEKLY INTERIM ON ) Goal Start Date Expected End Date End Date OT [facility] 8 05/15/21 06/05/21 -- Goal Details: Patient will complete transfers to bed/toilet/chair with SBA one time using least restrictive device (GOAL CONTINUED AT TIME OF WEEKLY INTERIM ON ) Goal Start Date Expected End Date End Date OT [facility] 4 05/19/21 06/05/21 -- Goal Details: Patient will complete bathing with SBA one time (GOAL CONTINUED AT TIME OF WEEKLY INTERIM ON ) Reviewed By Deepak Bills RN 05/28/21 0733 Deepak Bills RN 05/28/21 0725 Devonte Ward RN 05/17/21 0047 Devonte Ward RN 05/11/21 0408 Devonte Ward RN 05/10/21 0257 If this is the last note, consider this the discharge summary Chiara Fonseca OT 05/29/21 9:42 AM DESIGN ENGINEER * Padilla Baker RPh - 05/29/2021 8:35 [...] of 0.38 mg/dL (L)). Padilla Baker, Pharm.D DESIGN ENGINEER * Nalini Clayton MD - 05/29/2021 8:23 AM CST [facility] - Cardiology [facility] Progress Note Admit Date: 05/01/2021 5:20 PM @HDAYS@ PCP: Unknown, Notinfile Patient seen and examined Chart , telemtry reviewed Symptoms Patient denies chest pain, dyspnea, palpitations, sweating or syncope.On optiflo Data Vitals: 05/29/21 0600 05/29/21 0610 05/29/21 0630 05/29/21 0700 BP: 101/62 101/73 106/64 BP Location: Patient Position: Pulse: 86 83 96 Resp: 21 23 25 Temp: TempSrc: SpO2: 98% 99% [...] found for: T3FREE No results found for: R3SUIDO Pain Assessment: No/denies pain Meds MEDICATIONS FOR [...] 1545 ? ? al & mag hydroxide kzbzanhzuum-liqybzisecbyxrn-yieqphjvs-nystatin (MAGIC MOUTHWASH) suspension 1-1-1-1 20 mL swish [...] oral QID PRN 200 mg at 05/25/21 4893 ??? ondansetron (ZOFRAN) injection 4 mg 4 [...] - on Statin ? Nalini Clayton MD DESIGN ENGINEER * Alejandro Pratt MD - 05/29/2021 7:13 [...] hematuria as well. Workup revealed an acute AZ. Cath showed multi-vessel CAD. Had balloon pump [...] acetaminophen ? ? al & mag hydroxide vefkykvsnld-lhxvvldhmelyevj-jiatjairm-nystatin ??? albuterol ??? dextrose OR dextrose ??? [...] Assessment and Plan: Acute respiratory failure Acute AZ w CAD s/p CABG x 4 on [...] activity as tolerated Chart reviewed D/w RN DESIGN ENGINEER * Elena Kelly NP - 05/29/2021 7:00 [...] on 04/29. He was taken to the lab support technician on 04/30 where they found in-stent thrombosis [...] the ICU. Hospital Course 04/29 Cystoscopy at [facility] 04/30 STEMI, lab support technician -> instent thrombosis, angioplasty, IABP, transfer to [facility] 05/04/21: Increased blood clot from osorio [...] acetaminophen ? ? al & mag hydroxide saraeikadvf-ssqmhtxkyrcnttk-xsnwxzncv-nystatin ??? albuterol ??? dextrose OR dextrose ??? [...] Date 05/28/21 0700 - 05/29/21 0659 05/29/21 0700 - 05/30/21 0659 Shift 0550-6466 3130-3699 24 Hour Total 9490-1596 7568-5604 24 Hour Total INTAKE P.O. 1440 1440 [...] been reviewed with attending, MD Jaja Kelly, [facility] [phone], [place] 1 Critical Care Medicine [facility] Cosigned by Dominique Wilkinson MD at 05/31/2021 11:[address] DESIGN ENGINEER DESIGN ENGINEER DESIGN ENGINEER Associated attestation - Dominique Wilkinson MD - 05/31/2021 11:[address] DESIGN ENGINEER I have seen and examined the patient [...] and Critical Care Surgery Department of Surgery [facility] * Rosy Muñoz NP - 05/28/2021 10:34 PM CST [facility] Critical Care Medicine Daily Progress Team: Community Subjective Patient is a 60 y.o. y/o [...] on 04/29. He was taken to the lab support technician on 04/30 where they found in-stent thrombosis [...] the ICU.?? Hospital Course 04/29 Cystoscopy at [facility] 04/30 STEMI, lab support technician -> instent thrombosis, angioplasty, IABP, transfer to [facility] 05/04/21: Increased blood clot from osorio [...] acetaminophen ? ? al & mag hydroxide yomskxjebjh-lejzuljjaujopmd-ocnprveon-nystatin ??? albuterol ??? dextrose OR dextrose ??? [...] 0659 05/28/21 0700 - 05/29/21 0659 Shift 2098-5606 24 Hour Total 1733-5538 5635-3473 24 Hour Total INTAKE P.O. 1445 1440 [...] CTS team #VFib (05/03) s/p defib and Amiodarone/[employer] REPRESENTATIVE infusion -supportive care PULM: #Acute Hypoxic Respiratory [...] CT negative, + COVID 19 changes Consults: Director Facilities Maintenance, ID physician Endo: #Hyperglycemia, labile blood glucose, NPH and scheduled Lispro discontinued -frequent glucose checks with SSI, D10 stopped -HgbA1c > 13 this admission Consults: Endocrinology GI: -Nutrition plan: ADAT, encourage PO intake, supplements RENAL: Lab Results Component Value Date CREATININE 0.40 (L) 05/28/2021 #History of gross hematuria s/p cystoscopy with clot evacuation and transurethral resection of bladder tumor at [place] -Plavix resumed today, mild hematuria improved -Cystoscopy 05/14/21 with clot evacuation and fulguration for reported tumor -05/21/21 Coude placed, keep Osorio catheter today /2 worsening hypoxia with exertion Date 05/27/21 1900 - 05/28/21 0659 05/28/21 0700 - 05/29/21 0659 Shift 4906-9700 24 Hour Total 4589-4412 8327-8557 24 Hour Total INTAKE P.O. 1445 1440 [...] therapy. Please contact the microbiology laboratory at [phone] if identification or susceptibility testing is clinically indicated. Access: Right brachial PICC (05/18) --> place PIV in the AM and discontinue PPx: SCD, Lovenox Assessment and plan has been reviewed with attending, Dr. Dalton Muñoz NP [phone], [place] 1 [facility] Department of Anesthesiology Division of Critical Care Medicine Cosigned by Austin Hoffman MD at 06/09/2021 1:[address] DESIGN ENGINEER DESIGN ENGINEER DESIGN ENGINEER * Yves Weinberg MD - 05/28/2021 8:58 PM CST Nephrology Progress Note [facility] SUBJECTIVE 05/28/21 Appears better. All labs [...] degrees Pulse: 80 94 94 76 Resp: 22 23 17 22 Temp: 36.9 ??C (98.4 ??F) TempSrc: Oral [...] 1545 ? ? al & mag hydroxide zcjmexnnnik-aqqedlzcwaudghp-abpnpnzlw-nystatin (MAGIC MOUTHWASH) suspension 1-1-1-1, 20 mL, swish [...] LEAH, Rhina Granados MD, 10 mL at 05/28/21 1335 ??? tamsulosin (FLOMAX) extended release capsule 0.4 mg, 0.4 mg, oral, Daily with dinner, Elena Kelly NP, 0.4 mg at 05/28/21 1751 ??? vancomycin [...] Aortic atherosclerosis. No failure. The right IJ Guadalupita-Radha catheter has been retracted with its tip [...] with left pleural fluid decreasing. No pneumothorax. Guadalupita-Radha catheter remainsin place Impression: Decreasing failure, atelectasis [...] with left pleural fluid decreasing. No pneumothorax. Guadalupita-Radha catheter remains in place Impression: Decreasing failure, [...] atelectasis with left pleural fluid. No pneumothorax. Guadalupita-Radha catheter remains in place Impression: Decreasing failure. No pneumothorax. Electronically signed by: Deacon Cummings M.D. XR Chest 1 View - Portable - in AM Result Date: 05/07/2021 Narrative: EXAMINATION: XR CHEST 1 VIEW DATE: 05/07/2021 3:55 AM HISTORY: 60-year-old man follow-upcardiac surgery FINDINGS:Compared with study of the previous day, postsurgical changes in the heartand mediastinum with cardiomegaly are stable. Guadalupita-Radha catheter remains in place. Left thoracostomy tube [...] Interval placement of endotracheal tube, nasogastric tube, Guadalupita-Radha catheter, left thoracostomy tube and mediastinal drain [...] Echo (TTE) Limited Result Date: 05/07/2021 Narrative: [place] [id number] Limited Echocardiogram Report Patient Name: DEEPAK ALVARADO : 1960 StudyDate: 05/07/2021 12:16:52 PM Gender: M Tech: Location: [place] [address] Ref.Provider: RHINA GRANADOS Height(Cm): 175 BSA: 2.1 [...] tamponade. Electronically Signed By: Gianni Francois MD, [facility] 2021-05-07 12:54:09 ROAD DESIGN ENGINEER Transthoracic Echo Complete W Doppler/CF Result Date: 05/02/2021 Narrative: [address] [address] Echocardiogram Report Patient Name: DEEPAK ALVARADO W : 1960 Study Date: 05/02/2021 8:50:02 AM Gender: M Tech: Location: [id number] Ref Provider: NALINI CLAYTONHeight(Cm): 175 BSA: 2.11 [...] Valve: Normal structure of the mitral valve. Trivi al regurgitation of the mitral valve. Pulmonic Valve: [...] Signed By: Rylee Brito DO, FACJustyna, [place], [facility] 2021-05-02 14:07:25 ROAD DESIGN ENGINEER CC: CC: CC: ASSESSMENT/PLAN Hyponatremia from SIADH [...] -monitor ?? I can be reached at [phone] with any concerns. Thank you Lc Simons MD for the consult. Yves Weinberg MD [employer] [phone] DESIGN ENGINEER * Angelo Vance MD - 05/28/2021 3:16 [...] 05/26/21 0623 05/26/21 0623 BUN SERUM mg/dL 19 -- 22 -- 22 CREATININE mg/dL 0.40* [...] acetaminophen ? ? al & mag hydroxide ohklctzsuwc-xwwsktyfepdteun-yhmlscdtz-nystatin ??? albuterol ??? dextrose OR dextrose ??? [...] Continue supportive care Angelo Vance MD 05/28/2021 DESIGN ENGINEER * Shruthi Hu COTA - 05/28/2021 2:26 PM CST Occupational Therapy NOTE / SESSION TYPE: DAILY PROGRESS / TREATMENT Patient's Name: Deepak Alvarado Age / Sex: 60 y.o. / male Room: [place] [id number] : 1960 Date of service: 05/28/21 TIME [...] Yes Completed patient handoff and notified MANAGER RESEARCH DEVELOPMENT / RN, name: DEEAPK, of patient's location and functionalstatus upon completion [...] INTACT Mobility / Transfers: Bed Mobility: MIN TVUK-FR-IFIL ASSIST FOR TRUNK COMPONENT FROM [place]PINE WITH [...] Mariaelena Person OT at 05/28/2021 4:[address] DESIGN ENGINEER DESIGN ENGINEER DESIGN ENGINEER * Narciso Mayer MD - 05/28/2021 1:25 PM CST Pulmonary Daily Progress Chief complaint/reason for consult: Respiratory failure. Interval History: On optiflow 50 % 45 L Afebrile alert Appears comf States breathing feels ok No sputum production No NVD COVID positive 05/19/21 Presenting History: 60 yo man w COPD, DM, CAD/stents admitted 05/01/21 with chest pain. Had recent hematuria as well. Workup revealed an acute AZ. Cath showed multi-vessel CAD. Had balloon pump [...] acetaminophen ? ? al & mag hydroxide dtplmyeajdi-ncjyhtkwiggrchj-yvzokzfbf-nystatin ??? albuterol ??? dextrose OR dextrose ??? [...] Assessment and Plan: Acute respiratory failure Acute AZ w CAD s/p CABG x 4 on [...] bronchodilators Increase activity as tolerated Chart reviewed DESIGN ENGINEER * Lc Simons MD - 05/28/2021 12:40 [...] 1545 ? ? al & mag hydroxide kvaovrpfwlp-wvsvcfxwtuhmdef-xnrysftew-nystatin (MAGIC MOUTHWASH) suspension 1-1-1-1 20 mL swish [...] Huddleston NP 1 Units at 05/25/212102 ??? lidocaine (LIDODERM) 5 % patch 1 [...] LEAH Rhina Granados MD 20 mL at 05/28/21 [...] acetaminophen ? ? al & mag hydroxide lkkyqqmvntj-wncachpuyigqfci-wammvwfly-nystatin ??? albuterol ??? dextrose OR dextrose ??? [...] and transurethral resection of bladder tumor at [facility] -s/p 20??Finnish three way catheter -holding Plavix -cysto 05/14 [...] MD Team Health Hospitalist 05/28/2021 12:40 PM DESIGN ENGINEER * Varsha Lee NP - 05/28/2021 11:18 AM CST Cardiothoracic Surgery Note 24 days postop Urgent Coronary Artery Bypass Graft x4 Patient chart reviewed. No acute issues per staffing director. CTS will continue to follow patient on an as needed basis. Sternal incision is healed and sternum stable to cough. Please let CTS know if you have any questions. LTAC planning in process. Okay for discharge per CTS. Follow up appointment scheduled for patient. Varsha Lee NP Cardiothoracic Surgery [place] [facility]: [phone] [facility] Cosigned by Rhina Granados MD at 05/29/2021 1:[address] DESIGN ENGINEER DESIGN ENGINEER DESIGN ENGINEER * Alejandro Gonzalez NP - 05/28/2021 11:04 AM CST [facility] Critical Care Medicine Daily Progress Subjective Patient [...] on 04/29. He was taken to the lab support technician on 04/30 where they found in-stent thrombosis [...] the ICU.?? Hospital Course 04/29 Cystoscopy at [facility] 04/30 STEMI, lab support technician -> instent thrombosis, angioplasty, IABP, transfer to [facility] 05/04/21: Increased blood clot from osorio [...] acetaminophen ? ? al & mag hydroxide pttbowyvbiz-sgysiliyyciqufi-hezwnnkgw-nystatin ??? albuterol ??? dextrose OR dextrose ??? [...] 24 hours: - hemodynamically unsupported I/O: Date 05/27/21699 - 05/28/2159 05/28/21 07 - 05/29/21 0659 Shift 0255-1310 7545-0710 24 Hour Total 6354-0766 0526-3759 24 Hour Total INTAKE P.O. 1445 1445 [...] Plavix today #VFib (05/03) s/p defib and Amiodarone/[employer] REPRESENTATIVE infusion - off both Amiodarone & dobutmaine [...] antibiotics for empiric 7 day course Consults: Director Facilities Maintenance & Infectious Disease Endo: #Hyperglycemia, labile blood [...] and transurethral resection of bladder tumor at [place] - Plavix was stopped again overnight for only mild hematuria, but in the setting of the patient pulling on the Osorio & H/H actually increased >>> restarted Plavix - Cystoscopy 05/14/21 with clot evacuation and fulguration for reported tumor - 05/21/21 Coude placed, keep Osorio catheter today 2/2 worsening hypoxia with exertion Date 05/27/21 07 - 05/28/21 0659 05/28/21 0700 - 05/29/21 0659 Shift 8684-2052 1933-2796 24 Hour Total 3997-4969 4493-2077 24 Hour Total INTAKE P.O. 1445 1445 [...] with CTS re: baricitinib, discontinued on 12/24 2/2 pneumonia PCR +++ -trend WBC and [...] therapy. Please contact the microbiology laboratory at [phone] if identification or susceptibility testing is clinically indicated. Access: Right brachial PICC (05/18) PPx: SCD, Lovenox Dispo planning for LTACH Assessment and plan has been reviewed with attending, Dr. Jaja Gonzalez NP [phone], [place] 1 [facility] Department of Anesthesiology Division of Critical Care Medicine Cosigned by Dominique Wilkinson MD at 05/28/2021 2:[address] DESIGN ENGINEER DESIGN ENGINEER DESIGN ENGINEER Associated attestation - Dominique Wilkinson MD - 05/28/2021 2:[address] DESIGN ENGINEER I have seen and examined the patient [...] and Critical Care Surgery Department of Surgery [facility] * Nalini Clayton MD - 05/28/2021 10:06 AM CST [facility] - Cardiology [facility] Progress Note Admit [...] found for: T3FREE No results found for: J3WGVDD Pain Assessment: No/denies pain Pain Score: 0 [...] 10% infusion 10 mL/hr 10 mL/hr (05/28/21 9528) ? PRN MEDICATIONS: PRN Medications Medication Dose Route Frequency Last Admin ??? acetaminophen (TYLENOL) tablet 650 mg 650 mg oral Q6H PRN 650 mg at 05/21/21 1545 ? ? al & mag hydroxide viipnaekxoz-xqojfctpwdldwlz-gmknhgeju-nystatin (MAGIC MOUTHWASH) suspension 1-1-1-1 20 mL swish [...] oral QID PRN 200 mg at 05/25/21 5513 ??? ondansetron (ZOFRAN) injection 4 mg 4 [...] - on Statin ? Nalini Clayton MD DESIGN ENGINEER * Natan Urias, [facility] - 05/28/2021 4:42 AM CST Pharmacokinetic Consult [...] Day 3 of therapy Natan Urias RPh DESIGN ENGINEER * Rosy Muñoz, EFREN - 05/27/2021 10:37 PM CST [facility] Critical Care Medicine Daily Progress Team: [facility] PM Subjective Patient is a 60 y.o. [...] on 04/29. He was taken to the lab support technician on 04/30 where they found in-stent thrombosis [...] the ICU.?? Hospital Course 04/29 Cystoscopy at [facility] 04/30 STEMI, lab support technician -> instent thrombosis, angioplasty, IABP, transfer to [facility] 05/04/21: Increased blood clot from osorio [...] acetaminophen ? ? al & mag hydroxide fedcnxtjzwc-hwafsmdmzreojdv-ahzlyxpia-nystatin ??? albuterol ??? dextrose OR dextrose ??? [...] hours: I/O: Date 05/27/21699 - 05/28/21 0659 05/28/21699 - 05/29/21 0659 Shift 8893-4153 9470-2337 24 Hour Total 1489-8379 2114-4844 24 Hour Total INTAKE P.O. 1445 1445 [...] Farxiga, Corlanor #VFib (05/03) s/p defib and Amiodarone/[employer] REPRESENTATIVE infusion -supportive care PULM: #Acute Hypoxic Respiratory [...] therapy 05/26/21, de-escalate based on susceptibilities Consults: Director Facilities Maintenance, ID physician Endo: #Hyperglycemia, labile blood glucose --> glucose 68 tonight, treated, resume low dose D10 -frequent glucose checks, NPH/SSI -HgbA1c > 13 this admission Consults: Endocrinology GI: -Nutrition plan: ADAT, encourage PO intake RENAL: Lab Results Component Value Date CREATININE 0.40 (L) 05/28/2021 #History of gross hematuria s/p cystoscopy with clot evacuation and transurethral resection of bladder tumor at [place] -Plavix resumed today, however, noted to have mild hematuria overnight, Plavix on hold for now -Cystoscopy 05/14/21 with clot evacuation and fulguration for reported tumor -05/21/21 Coude placed, keep Osorio catheter today 2/2 worsening hypoxia with exertion Date 05/27/21 0700 - 05/28/21 0659 05/28/21 0700 - 05/29/21 0659 Shift 2917-4863 6338-6858 24 Hour Total 6232-4828 1276-8612 24 Hour Total INTAKE P.O. 1445 1445 [...] therapy. Please contact the microbiology laboratory at [phone] if identification or susceptibility testing is clinically indicated. Access: Right brachial PICC (05/18) --> place PIV in the AM and discontinue PPx: SCD, Lovenox Assessment and plan has been reviewed with attending, Dr. Dalton Muñoz NP [phone], [place] 1 [facility] Department of Anesthesiology Division of Critical Care Medicine Cosigned by Austin Hoffman MD at 06/09/2021 1:[address] DESIGN ENGINEER DESIGN ENGINEER DESIGN ENGINEER * Ralf Tomlinson MD - 05/27/2021 1:43 PM CST Pulmonary Daily Progress Chief complaint/reason for consult: Respiratory failure. Interval History: On optiflow 40%/55L Afebrile alert Appears comf COVID positive 05/19/21 Presenting History: 60 yo man w COPD, DM, CAD/stents admitted 05/01/21 with chest pain. Had recent hematuria as well. Workup revealed an acute AZ. Cath showed multi-vessel CAD. Had balloon pump [...] acetaminophen ? ? al & mag hydroxide wselnkebqmm-oofjlidcsghmvqv-agegnktke-nystatin ??? albuterol ??? dextrose OR dextrose ??? [...] Assessment and Plan: Acute respiratory failure Acute AZ w CAD s/p CABG x 4 on [...] bronchodilators Increase activity as tolerated Chart reviewed DESIGN ENGINEER * Yves Weinberg MD - 05/27/2021 1:16 PM CST Nephrology Progress Note [facility] SUBJECTIVE 05/27/21 Doing about the same. [...] 1545 ? ? al & mag hydroxide goxhueuschg-qbuglkxcbgxqxvu-jvomyfenk-nystatin (MAGIC MOUTHWASH) suspension 1-1-1-1, 20 mL, swish [...] Varsha Crowder NP, 81 mg at 05/27/21 09 ??? atorvastatin (LIPITOR) tablet 80 mg, 80 mg, oral, Nightly, Rhina Granados MD, 80 mg at 05/26/21 2216 ??? cefepime (MAXIPIME) 2,000 mg in sodium chloride 0.9% 100 mL IVPB, 2,000 mg, intravenous, Q12H LEAH, Rhina Granados MD, Last Rate: 200 mL/hr at 05/27/21902, 2,000 mg at 05/27/21902 ??? clopidogreL (PLAVIX) tablet 75 mg, 75 [...] mg, oral, BID, 100 mg at 05/27/21 0903 OR [DISCONTINUED] docusate (COLACE) 10 mg/mL oral [...] Caleb Toth PA, 200 mg at 05/25/21 1983 ??? insulin lispro (HumaLOG, ADMELOG) 100 unit/mL injection 0-10 Units, 0-10 Units, subcutaneous, TID with meals, Silviano Huddleston NP, 2 Units at 05/27/21 1220 ??? insulin lispro (HumaLOG, ADMELOG) 100 unit/mL injection 0-5 Units, 0-5 Units, subcutaneous, Nightly, Silviano Huddleston NP, 1 Units at 05/25/21 2103 ??? insulin [...] TID, Silviano Huddleston NP, 15 mg at 05/27/21 0903 ??? ondansetron (ZOFRAN) injection 4 mg, 4 [...] Nightly, Silviano Huddleston NP, 50 mg at 05/26/216 ??? sodium chloride 0.9% flush 0.5-20 mL, 0.5-20 mL, intra-catheter, Q8H [facility], Rhina Granados MD, 10 mL at 05/27/21 07 ??? spironolactone (ALDACTONE) tablet 25 mg, 25 mg, oral, Daily, Stephen Melgar MD, 25 mg at 05/27/21 0903 ??? tamsulosin (FLOMAX) extended release capsule 0.4 mg, 0.4 mg, oral, Daily with dinner, Elena Kelly NP, 0.4 mg at 05/26/21 1715 ??? vancomycin [...] Aortic atherosclerosis. No failure. The right IJ Guadalupita-Radha catheter has been retracted with its tip [...] with left pleural fluid decreasing. No pneumothorax. Guadalupita-Radha catheter remainsin place Impression: Decreasing failure, atelectasis [...] with left pleural fluid decreasing. No pneumothorax. Guadalupita-Radha catheter remains in place Impression: Decreasing failure, [...] atelectasis with left pleural fluid. No pneumothorax. Guadalupita-Radha catheter remains in place Impression: Decreasing failure. No pneumothorax. Electronically signed by: Deacon Cummings M.D. XR Chest 1 View - Portable - in AM Result Date: 05/07/2021 Narrative: EXAMINATION: XR CHEST 1 VIEW DATE: 05/07/2021 3:55 AM HISTORY: 60-year-old man follow-upcardiac surgery FINDINGS:Compared with study of the previous day, postsurgical changes in the heartand mediastinum with cardiomegaly are stable. Guadalupita-Radha catheter remains in place. Left thoracostomy tube [...] Interval placement of endotracheal tube, nasogastric tube, Guadalupita-Radha catheter, left thoracostomy tube and mediastinal drain [...] Echo (TTE) Limited Result Date: 05/07/2021 Narrative: [place] [address] Limited Echocardiogram Report Patient Name: DEEPAK ALVARADO : 1960 StudyDate: 05/07/2021 12:16:52 PM Gender: M Tech: SR Location: [id number] Ref.Provider: RHINA GRANADOS Height(Cm): 175 BSA: 2.1 [...] tamponade. Electronically Signed By: Gianni Francois MD, [facility] :54:09 RO[address] DESIGN ENGINEER Transthoracic Echo Complete W Doppler/CF Result Date: 05/02/2021 Narrative: [place] [address] Echocardiogram Report Patient Name: DEEPAK ALVARADO W : 1960 Study Date: 05/02/2021 8:50:02 AM Gender: M Tech: Location: [place] [address] Ref Provider: NALINI CLAYTONHeight(Cm): 175 BSA: 2.11 [...] valve. Electronically Signed By: Rylee Brito DO, [facility], [place], FAISAL 2021-05-02 14:07:25 ROAD DESIGN ENGINEER CC: CC: CC: ASSESSMENT/PLAN Hyponatremia from SIADH [...] -monitor ?? I can be reached at [phone] with any concerns. Thank you Lc Simons MD for the consult. Yves Weinberg MD [employer] [phone] DESIGN ENGINEER * Alejandro Gonzalez, EFREN - 05/27/2021 12:41 PM CST [facility] Critical Care Medicine Daily Progress Subjective Patient is a 60 y.o. y/o male admitted on 05/01/2021 5:20 PM with the following indication(s) for ICU care - s/p CABG, now with COVID 19 viral pneumonia Interval History: - restarted Plavix > monitor for hematuria - reached out to Dr. Vance via [employer] and left a message asking him to [...] on 04/29. He was taken to the lab support technician on 04/30 where they found in-stent thrombosis [...] the ICU.?? Hospital Course 04/29 Cystoscopy at [facility] 04/30 STEMI, lab support technician -> instent thrombosis, angioplasty, IABP, transfer to [facility] 05/04/21: Increased blood clot from osorio [...] acetaminophen ? ? al & mag hydroxide wgkxhqzerop-vueemalnomdfmus-bklgzadmh-nystatin ??? albuterol ??? dextrose OR dextrose ??? [...] parameters for last 24 hours: I/O: Date 05/26/21699 - 05/27/21 0659 05/27/21699 - 05/28/21 0659 Shift 1494-2824 5101-3242 24 Hour Total 0836-5316 2578-7512 24 Hour Total INTAKE P.O. 1300 1300 [...] for hematuria #VFib (05/03) s/p defib and Amiodarone/[employer] REPRESENTATIVE infusion - off both Amiodarone & dobutmaine [...] continue antibiotics and f/u ID recs Consults: Director Facilities Maintenance & Infectious Disease Endo: #Hyperglycemia, labile blood [...] and transurethral resection of bladder tumor at [facility] - Plavix was on hold >>> resumed today > monitor for hematuria - Cystoscopy 05/14/21 with clot evacuation and fulguration for reported tumor - 05/21/21 Coude placed, keep Osorio catheter today 2/2 worsening hypoxia with exertion Date 05/26/21 0700 - 05/27/21 0659 05/27/21 0700 - 05/28/21 0659 Shift 7157-1935 8347-8471 24 Hour Total 8240-1454 5225-6533 24 Hour Total INTAKE P.O. 1300 1300 [...] therapy. Please contact the microbiology laboratory at [phone] if identification or susceptibility testing is clinically indicated. Access: Right brachial PICC (05/18) PPx: SCD, Lovenox Assessment and plan has been reviewed with attending, Dr. Jaja Gonzalez, [employer] MAKER [phone], [place] 1 [facility] [employer] Department of Anesthesiology Division of Critical Care Medicine Cosigned by Dominique Wilkinson MD at 05/28/2021 2:[address] DESIGN ENGINEER DESIGN ENGINEER DESIGN ENGINEER Associated attestation - Dominique Wilkinson MD - 05/28/2021 2:[address] DESIGN ENGINEER I have seen and examined the patient [...] and Critical Care Surgery Department of Surgery [facility] * Nalini Clayton MD - 05/27/2021 12:31 PM CST [facility] - Cardiology [facility] Progress Note Admit [...] found for: T3FREE No results found for: Q6BIKDU Meds MEDICATIONS FOR CURRENT ENCOUNTER: SCHEDULED MEDICATIONS: [...] 1545 ? ? al & mag hydroxide gufydggqpol-fokarkvjlahxmwq-xxgvzlfyc-nystatin (MAGIC MOUTHWASH) suspension 1-1-1-1 20 mL swish [...] - on Statin ? Nalini Clayton MD DESIGN ENGINEER * Angelo Vance MD - 05/27/2021 10:52 AM CST Infectious Disease Deepak Adair Lazarus Admit Date: 05/01/2021 LOS: 26 Days Clinical [...] acetaminophen ? ? al & mag hydroxide rwoebykttcq-afftvoyjrwosbdw-qaincljau-nystatin ??? albuterol ??? dextrose OR dextrose ??? [...] Continue supportive care Angelo Vance MD 05/27/2021 DESIGN ENGINEER DESIGN ENGINEER * Lc Simons MD - 05/27/2021 10:34 [...] 1545 ? ? al & mag hydroxide udfppogmtxv-atuewozccknjevk-lldoueqdp-nystatin (MAGIC MOUTHWASH) suspension 1-1-1-1 20 mL swish [...] mL IVPB 2,000 mg intravenous Q12H LEAH hRina Granados MD 200 mL/hr at 05/27/21902 2,000 [...] Caleb Toth PA 200 mg at 05/25/21 1913 ??? insulin lispro (HumaLOG, ADMELOG) 100 unit/mL [...] meals Silviano Huddleston NP 7 Units at 05/27/21 0905 ??? insulin NPH (HumuLIN N, NovoLIN N) 100 unit/mL injection 6 Units 6 Units subcutaneous Q6H [facility] Rosy Muñoz NP 6 Units at 05/27/21 0036 ??? [...] flush 0.5-20 mL 0.5-20 mL intra-catheter Q8H [facility] Rhina Granados MD 10 mL at 05/27/21701 ??? spironolactone (ALDACTONE) tablet 25 mg 25 mg oral Daily Stephen Melgar MD 25 mg at 05/27/21 0903 ??? tamsulosin (FLOMAX) extended release capsule 0.4 mg 0.4 mg oral Daily with dinner Elena Kelly NP 0.4 mg at 05/26/21 1715 ??? vancomycin (VANCOCIN) 1,250 mg in sodium chloride 0.9% 250 mL IVPB 15 mg/kg intravenous Q12H Rosy Muñoz NP 262.5 mL/hr at 05/27/21 0036 1,250 mg at 05/27/21 0036 dextrose 10%, 10 mL/hr, Last Rate: 10 mL/hr (05/26/21 1013) ??? acetaminophen ? ? al & mag hydroxide jppxwvxdszi-eqefaudetloyvev-dopnrzxrh-nystatin ??? albuterol ??? dextrose OR dextrose ??? [...] and transurethral resection of bladder tumor at [facility] -s/p 20??Finnish three way catheter -holding Plavix -cysto 05/14 [...] MD Team Health Hospitalist 05/27/2021 10:34 AM DESIGN ENGINEER * Varsha Lee NP - 05/27/2021 9:45 [...] SVG site ZULEIKA with steri-strips C/D/I Neurological: General: No focal deficit present. Mental Status: He is alert and oriented to person, place, and time. Psychiatric: Mood and Affect: Mood normal. Access: picc Recent Labs Lab Units 05/27/21 0640 05/26/21 0605/25/21 0300 WBC K/cumm 13.5* 14.0* 11.2* HEMOGLOBIN [...] ICU, LTAC? Varsha Lee NP Cardiothoracic Surgery [place] [facility]: [phone] [facility] Cosigned by Rhina Granados MD at 05/29/2021 1:[address] DESIGN ENGINEER DESIGN ENGINEER DESIGN ENGINEER * Yves Weinberg MD - 05/26/2021 8:36 PM CST Nephrology Progress Note [facility] SUBJECTIVE 05/26/21 Doing fair. Appears comfortable. [...] 1545 ? ? al & mag hydroxide iuycwyznugv-pvfqiklhhsujghd-dmqrghehg-nystatin (MAGIC MOUTHWASH) suspension 1-1-1-1, 20 mL, swish [...] Nightly, Rhina Granados MD, 80 mg at 05/25/21 2105 ??? cefepime (MAXIPIME) 2,000 mg in sodium [...] meals, Silviano Huddleston NP, 7 Units at 05/26/217 ??? insulin NPH (HumuLIN N, NovoLIN N) [...] Muñoz NP, Last Rate: 0 mL/hr at 05/25/212136, 1 patch at 05/26/21 101 ??? midodrine (PROAMATINE) tablet 15 mg, 15 [...] Aortic atherosclerosis. No failure. The right IJ Guadalupita-Radha catheter has been retracted with its tip [...] with left pleural fluid decreasing. No pneumothorax. Guadalupita-Radha catheter remainsin place Impression: Decreasing failure, atelectasis [...] with left pleural fluid decreasing. No pneumothorax. Guadalupita-Radha catheter remains in place Impression: Decreasing failure, [...] atelectasis with left pleural fluid. No pneumothorax. Guadalupita-Radha catheter remains in place Impression: Decreasing failure. No pneumothorax. Electronically signed by: Deacon Cummings M.D. XR Chest 1 View - Portable - in AM Result Date: 05/07/2021 Narrative: EXAMINATION: XR CHEST 1 VIEW DATE: 05/07/2021 3:55 AM HISTORY: 60-year-old man follow-upcardiac surgery FINDINGS:Compared with study of the previous day, postsurgical changes in the heartand mediastinum with cardiomegaly are stable. Guadalupita-Radha catheter remains in place. Left thoracostomy tube [...] Interval placement of endotracheal tube, nasogastric tube, Guadalupita-Radha catheter, left thoracostomy tube and mediastinal drain [...] Echo (TTE) Limited Result Date: 05/07/2021 Narrative: [place] [address] Limited Echocardiogram Report Patient Name: DEEPAK ALVARADO : 1960 StudyDate: 05/07/2021 12:16:52 PM Gender: M Tech: Location: [place] [address] Ref.Provider: RHINA GRANADOS Height(Cm): 175 BSA: 2.1 [...] tamponade. Electronically Signed By: Gianni Francois MD, [facility] :54:[address] RO[address] DESIGN ENGINEER Transthoracic Echo Complete W Doppler/CF Result Date: 05/02/2021 Narrative: [place] [address] Echocardiogram Report Patient Name: DEEPAK ALVARADO W : 1960 Study Date: 05/02/2021 8:50:02 AM Gender: M Tech: Location: [place] [address] Ref Provider: NALINI CLAYTONHeight(Cm): 175 BSA: 2.11 [...] valve. Electronically Signed By: Rylee Brito DO, [facility], [place], FAISAL 2021-05-02 14:07:25 ROAD DESIGN ENGINEER CC: CC: CC: ASSESSMENT/PLAN Hyponatremia from SIADH [...] -monitor ?? I can be reached at [phone] with any concerns. Thank you Rhina Granados MD for the consult. Yves Weinberg MD [employer] [phone] DESIGN ENGINEER * Rosy Muñoz, EFREN - 05/26/2021 4:40 PM CST [facility] Critical Care Medicine Daily Progress Team: Community [...] on 04/29. He was taken to the lab support technician on 04/30 where they found in-stent thrombosis [...] the ICU.?? Hospital Course 04/29 Cystoscopy at [facility] 04/30 STEMI, lab support technician -> instent thrombosis, angioplasty, IABP, transfer to [facility] 05/04/21: Increased blood clot from osorio [...] acetaminophen ? ? al & mag hydroxide fhdxhadqbzh-durmxdizxbkgpxb-sbtaiewlm-nystatin ??? albuterol ??? dextrose OR dextrose ??? [...] parameters for last 24 hours: I/O: Date 05/25/21 1900 - 05/26/21 0659 05/26/21 07 - 05/27/21 0659 Shift 6852-4634 24 Hour Total 0792-1346 0413-3085 24 Hour Total INTAKE P.O. 0 785 [...] surgical intervention #VFib (05/03) s/p defib and Amiodarone/[employer] REPRESENTATIVE infusion -supportive care PULM: #Acute Hypoxic Respiratory [...] therapy today, de-escalate based on susceptibilities Consults: Director Facilities Maintenance Endo: #Hyperglycemia, labile blood glucose -frequent glucose checks, NPH/SSI -HgbA1c > 13 this admission -labile blood glucose, decrease NPH, and adjust D10 as indicated Consults: Endocrinology GI: -Nutrition plan: ADAT, encourage PO intake RENAL: Lab Results Component Value Date CREATININE 0.48 (L) 05/26/2021 #History of gross hematuria s/p cystoscopy with clot evacuation and transurethral resection of bladder tumor at [facility] -Plavix on hold, likely can resume, verify with Dr. Trejo in the AM -Cystoscopy 05/14/21 with clot evacuation and fulguration for reported tumor -05/21/21 Coude placed, keep Osorio catheter today 2/2 worsening hypoxia with exertion Date 05/25/21 1900 - 05/26/21 0659 05/26/21 0700 - 05/27/21 0659 Shift 2130-9825 24 Hour Total 2478-2725 0795-0380 24 Hour Total INTAKE P.O. 0 785 400 400 Shift Total(mL/kg) 0(0) 785(9.9) 400(5) 400(5) OUTPUT Urine(mL/kg/hr) 660 1425 815(0.9) 815 Shift Total(mL/kg) 660(8.3) 1425(17.9) 815(10.3) 815(10.3) [facility] -660 -640 -415 -415 Weight (kg) 79.5 [...] therapy. Please contact the microbiology laboratory at [phone] if identification or susceptibility testing is clinically indicated. Access: Right brachial PICC (05/18) PPx: SCD, Lovenox Assessment and plan has been reviewed with attending, Dr. Jaja Muñoz NP [phone], [place] 1 [facility] Department of Anesthesiology Division of Critical Care Medicine Cosigned by Dominique Wilkinson MD at 05/27/2021 8:[address] DESIGN ENGINEER DESIGN ENGINEER DESIGN ENGINEER Associated attestation - Dominique Wilkinson MD - 05/27/2021 8:[address] DESIGN ENGINEER I have seen and examined the patient [...] consult ID for assistance in treatment. Initially presumed Covid to be worsening but likely secondary to superinfection. Will stop baricitinib. Dominique Wilkinson MD Section of Acute and Critical Care Surgery Department of Surgery [facility] * Chiara Fonseca, OT - 05/26/2021 3:27 PM CST Occupational Therapy NOTE / SESSION TYPE: Weekly Progress / Interim ATTEMPT Patient Name: Deepak Alvarado Date of : 1960 Age / Sex: 60 y.o. / male Room: [place] [address] Admit Date: 05/01/2021 Date of Service: 05/26/21 Time In: 15:27 Time Out: 15:37 Primary Diagnosis: ST elevation myocardial infarction (STEMI) (HCC) HPI: Deepak Alvarado is a 60 y.o. male who presents with ??retrosternal chest pain accompanied by sweating and shortness of breath. Patient underwent bladder surgery (cystoscopy, clot evacuation, and transurethral resection of bladder tumor) ??at [facility] 04/30/2021 and was discharged 05/01/2021. Patient transferred to for emergent cardiac catheterization. Patient admitted with acute anterior wall AZ, s/p cardiac cath with PTCA of the [...] Yes Completed patient handoff and notified MANAGER RESEARCH DEVELOPMENT / RN, name: EVELYN, of patient's location [...] - Left: 4/5 THROUGHOUT Hand Dominance: Right Puppy Trainer Strength (Right) GOOD Puppy Trainer Strength (Left): GOOD PATIENT NOT RECEPTIVE TO OUT OF BED ACTIVITY/ADLs AT THIS TIME DESPITE MAX ENCOURAGEMENT, SAYING, I'LL TAKE A BATH TOMORROW MORNING, BUT I JUST WANT SOME TEA RIGHT NOW. If this is the last note, consider this the discharge summary Chiara Fonseca OT 05/26/21 3:42 PM DESIGN ENGINEER * Roya Marquez, LABORATORY HELPER - 05/26/2021 3:19 PM CST Physical Therapy PT PROGRESS NOTE Patient refused to participate in therapy repeatedly, states tomorrow morning he will be willing towork with therapy Cosigned by Marcel Cervantes, PT at 05/26/2021 3:[address] DESIGN ENGINEER DESIGN ENGINEER DESIGN ENGINEER * Anibal Lara MD - 05/26/2021 1:52 [...] Position: Pulse: 85 91 85 101 Resp: Temp: TempSrc: SpO2: 90% Weight: Height: Wt [...] 1545 ? ? al & mag hydroxide jwbswwoqkmr-aatqhfmzohzshvm-mjhubevnp-nystatin (MAGIC MOUTHWASH) suspension 1-1-1-1 20 mL swish & spit Q4H PRN Elena Kelly NP ??? albuterol 2.5 mg /3 mL (0.083 %) nebulizer solution 2.5 mg 2.5 mg nebulization Q4H PRN (RT) Ralf Tomlinson MD 2.5 mg at 05/17/21 0224 ??? albuterol HFA (PROVENTIL HFA,VENTOLIN HFA,PROAIR HFA) 90 mcg/actuation inhaler 8 puff 8 puff inhalation Q4H While awake (RT) Ralf Tmolinson MD 8 puff at 05/26/21 0918 ??? [...] 0-10 Units subcutaneous TID with meals Silviano Huddleston, EFREN 4 Units at 05/26/21 1321 ??? insulin [...] mL intra-catheter Q8H LEAH Rhina Granados MD 10mL at 05/26/21 0626 ??? spironolactone (ALDACTONE) tablet [...] acetaminophen ? ? al & mag hydroxide iupfluerdce-ifnfyuxhbdqfmoi-fbnoeyemk-nystatin ??? albuterol ??? dextrose OR dextrose ??? [...] and transurethral resection of bladder tumor at [facility] -s/p 20??Finnish three way catheter -holding Plavix -cysto 05/14 [...] MD Team [facility] Hospitalist 05/26/2021 1:52 PM DESIGN ENGINEER * Ralf Tomlinson MD - 05/26/2021 12:36 PM CST Pulmonary Daily Progress Chief complaint/reason for consult: Respiratory failure. Interval History: On optiflow 100%/60L afebrile Appears comf COVID positive 05/19/21 Presenting History: 60 yo man w COPD, DM, CAD/stents admitted 05/01/21 with chest pain. Had recent hematuria as well. Workup revealed an acute AZ. Cath showed multi-vessel CAD. Had balloon pump [...] acetaminophen ? ? al & mag hydroxide jfdppnlpqhi-dlelbnuclhhpjqu-wbdgyzdca-nystatin ??? albuterol ??? dextrose OR dextrose ??? [...] Assessment and Plan: Acute respiratory failure Acute AZ w CAD s/p CABG x 4 on [...] bronchodilators Increase activity as tolerated Chart reviewed DESIGN ENGINEER * Se Godoy [facility] - 05/26/2021 12:18 PM CST Pharmacokinetic Consult [...] Day 1 of therapy. Se Godoy RPh DESIGN ENGINEER * Se Godoy RPh - 05/26/2021 11:44 [...] of 0.48 mg/dL (L)). Se Godoy RPh DESIGN ENGINEER * Shima Paulson NP - 05/26/2021 10:57 [...] EF??37%, CABGx4 05/04/2021 - SR 80s on High Tower [employer] 2233 -CTS following ?? COVID 19 - [...] ?? HLD - on Statin ?? [facility] 05/26/2021 10:57 AM Cosigned by Lester Batista MD at 05/26/2021 11:[address] DESIGN ENGINEER DESIGN ENGINEER DESIGN ENGINEER * Varsha Lee, EFREN - 05/26/2021 9:06 AM CST Cardiothoracic Surgery [...] SVG site ZULEIKA with steri-strips C/D/I Neurological: General: No focal [...] Dispo: ICU Varsha Lee NP Cardiothoracic Surgery [facility]: [phone] [facility] Cosigned by Rhina Granados MD at 05/26/2021 12:[address] DESIGN ENGINEER DESIGN ENGINEER DESIGN ENGINEER * Chiara Fonseca OT - 05/26/2021 8:18 AM CST Occupational Therapy 05/26/21 0818 General Session Type Other (comment) (NO OT PROVIDED, NO OT CHARGED) OT Missed Visit Reason Other (comment) MED CANCEL- PATIENT SEEN FAST ASLEEP ON OPTIFLOW 80%/10L, O2 LEVEL AT 79% UPON THERAPIST ARRIVAL; RN AWARE. WILL RE-ATTEMPT OT SESSION PENDING O2 SATS. Chiaar Fonseca OT 05/26/21 8:26 AM DESIGN ENGINEER DESIGN ENGINEER * Cristina Anaya RD - 05/25/2021 5:58 [...] medication as directed by your doctor. Call [phone] to speak with a dietitian about any diet related concerns. Recommend to follow up with outpatient nutrition counseling, ask your doctor for a referral and call [phone] to make an appointment. Nutrition Follow-Up : 06/01/[address],LD DESIGN ENGINEER * Rosy Muñoz NP - 05/25/2021 3:59 PM CST [facility] Critical Care Medicine Daily Progress Team: Community [...] on 04/29. He was taken to the lab support technician on 04/30 where they found in-stent thrombosis [...] the ICU.?? Hospital Course 04/29 Cystoscopy at [facility] 04/30 STEMI, lab support technician -> instent thrombosis, angioplasty, IABP, transfer to [facility] 05/04/21: Increased blood clot from osorio [...] acetaminophen ? ? al & mag hydroxide fphntehvqka-uhdmwgjlfxkqtpo-iuyyoohey-nystatin ??? albuterol ??? dextrose OR dextrose ??? [...] parameters for last 24 hours: I/O: Date 05/24/21 1900 - 05/25/21 0659 05/25/21 0700 - 05/26/21 0659 Shift 8662-5549 24 Hour Total 9943-2211 9416-4386 24 Hour Total INTAKE P.O. 300 657 [...] Farxiga, Corlanor #VFib (05/03) s/p defib and Amiodarone/[employer] REPRESENTATIVE infusion -supportive care PULM: #Acute Hypoxic Respiratory [...] COVID 19 changes -COVID medical management Consults: Director Facilities Maintenance Endo: #Hyperglycemia, labile blood glucose -frequent glucose checks, NPH/SSI -HgbA1c > 13 this admission Consults: Endocrinology GI: -Nutrition plan: ADAT, encourage PO intake RENAL: Lab Results Component Value Date CREATININE 0.58 (L) 05/25/2021 #History of gross hematuria s/p cystoscopy with clot evacuation and transurethral resection of bladder tumor at [facility] [place] -Plavix on hold -Cystoscopy 05/14/21 with clot evacuation and fulguration -05/21/21 Coude placed, keep Osorio catheter today 2/2 worsening hypoxia with exertion Date 05/24/21 1900 - 05/25/21 0659 05/25/21 0700 - 05/26/21 0659 Shift 8531-1886 24 Hour Total 3779-0476 2739-8512 24 Hour Total INTAKE P.O. 300 657 [...] therapy. Please contact the microbiology laboratory at [phone] if identification or susceptibility testing is clinically indicated. Access: Right brachial PICC (05/18) PPx: SCD, Lovenox Assessment and plan has been reviewed with attending, Dr. Jaja Muñoz NP [phone], [place] 1 [facility] [employer] Department of Anesthesiology Division of Critical Care Medicine Cosigned by Dominique Wilkinson MD at 05/26/2021 5:[address] DESIGN ENGINEER DESIGN ENGINEER DESIGN ENGINEER Associated attestation - Dominique Wilkinson MD - 05/26/2021 5:[address] DESIGN ENGINEER I have seen and examined the patient [...] and Critical Care Surgery Department of Surgery [facility] * Shruthi Hu COTA - 05/25/2021 3:27 [...] Chiara Fonseca, OT at 05/25/2021 5:[address] DESIGN ENGINEER DESIGN ENGINEER DESIGN ENGINEER DESIGN ENGINEER * Sandee Paez, PT - 05/25/2021 2:55 [...] OUT: 1525 IHospital Course 04/29 Cystoscopy at [facility] 04/30 STEMI, lab support technician -> instent thrombosis, angioplasty, IABP, transfer to [facility] 05/04/21: Increased blood clot from osorio [...] perform LE exercise. Gait: not appropriate this . TREATMENT: Supine bilateral LE ankle DF/PF, SAQ, [...] note, please consider this the discharge summary. DESIGN ENGINEER * Anibal Lara MD - 05/25/2021 1:43 [...] 1545 ? ? al & mag hydroxide lpaveoxnceg-dnuaqtqunzryfkm-bdxczubrk-nystatin (MAGIC MOUTHWASH) suspension 1-1-1-1 20 mL swish [...] Nightly Rhina Granados MD 80 mg at 05/24/212047 ??? dapagliflozin (FARXIGA) tablet 10 mg 10 [...] injection 10 Units 10 Units subcutaneous Q6H Rosy Castillo NP 10 Units at 05/25/21 1251 ??? [...] LEAH Rhina Granados MD 20 mL at 05/25/2115 ??? spironolactone (ALDACTONE) tablet 25 mg 25 mg oral Daily Stephen Melgar MD 25 mg at 05/25/21 0855 ??? tamsulosin (FLOMAX) extended release capsule 0.4 mg 0.4 mg oral Daily with dinner Elena Kelly NP 0.4 mg at 05/24/21 1730 ??? acetaminophen ? ? al & mag hydroxide igsaxdptjad-atteghvolgaxhwl-usfmpqscs-nystatin ??? albuterol ??? dextrose OR dextrose ??? [...] and transurethral resection of bladder tumor at [facility] -s/p ??Finnish three way catheter -holding Plavix -cysto 05/14 [...] MD Team Health Hospitalist 05/25/2021 1:43 PM DESIGN ENGINEER * Ralf Tomlinson MD - 05/25/2021 1:37 PM CST Pulmonary Daily Progress Chief complaint/reason for consult: Respiratory failure. Interval History: On optiflow 50%/50L afebrile occ dyspnea Remains on dexamethasone and remdesivir. COVID positive 05/19/21 Presenting History: 60 yo man w COPD, DM, CAD/stents admitted 05/01/21 with chest pain. Had recent hematuria as well. Workup revealed an acute AZ. Cath showed multi-vessel CAD. Had balloon pump [...] acetaminophen ? ? al & mag hydroxide odazgldkfny-zzldulifwxnncdy-uusvravdn-nystatin ??? albuterol ??? dextrose OR dextrose ??? [...] Assessment and Plan: Acute respiratory failure Acute AZ w CAD s/p CABG x 4 on [...] bronchodilators Increase activity as tolerated Chart reviewed DESIGN ENGINEER * Yves Weinberg MD - 05/25/2021 12:09 PM CST Nephrology Progress Note [facility] SUBJECTIVE 05/25/21 Doing fair. All labs [...] 1545 ? ? al & mag hydroxide cjkxmruzwzo-jajdljaqyhaerix-fpgjdcaks-nystatin (MAGIC MOUTHWASH) suspension 1-1-1-1, 20 mL, swish [...] Silviano Huddleston NP, 2 Units at 05/24/21 173 ??? insulin lispro (HumaLOG, ADMELOG) 100 unit/mL injection 0-5 Units, 0-5 Units, subcutaneous, Nightly, Silviano Huddleston NP, 1 Units at 05/24/212048 ??? insulin lispro (HumaLOG, ADMELOG) 100 unit/mL injection 7 Units, 0.083 Units/kg, subcutaneous, TID with meals, Silviano Huddleston NP, 7 Units at 05/24/21 173 ??? insulin [...] flush 0.5-20 mL, 0.5-20 mL, intra-catheter, Q8H [facility], Rhina Granados MD, 20 mL at 05/25/21 0515 ??? spironolactone (ALDACTONE) tablet 25 mg, 25 mg, oral, Daily, SerotaStephen MD, 25 mg at 05/25/21 0855 ??? [...] Aortic atherosclerosis. No failure. The right IJ Guadalupita-Radha catheter has been retracted with its tip [...] with left pleural fluid decreasing. No pneumothorax. Guadalupita-Radha catheter remainsin place Impression: Decreasing failure, atelectasis [...] with left pleural fluid decreasing. No pneumothorax. Guadalupita-Radha catheter remains in place Impression: Decreasing failure, [...] atelectasis with left pleural fluid. No pneumothorax. Guadalupita-Radha catheter remains in place Impression: Decreasing failure. No pneumothorax. Electronically signed by: Deacon Cummings M.D. XR Chest 1 View - Portable - in AM Result Date: 05/07/2021 Narrative: EXAMINATION: XR CHEST 1 VIEW DATE: 05/07/2021 3:55 AM HISTORY: 60-year-old man follow-upcardiac surgery FINDINGS:Compared with study of the previous day, postsurgical changes in the heartand mediastinum with cardiomegaly are stable. Guadalupita-Radha catheter remains in place. Left thoracostomy tube [...] Interval placement of endotracheal tube, nasogastric tube, Guadalupita-Radha catheter, left thoracostomy tube and mediastinal drain [...] Echo (TTE) Limited Result Date: 05/07/2021 Narrative: [place] [address] Limited Echocardiogram Report Patient Name: DEEPAK ALVARADO : 1960 StudyDate: 05/07/2021 12:16:52 PM Gender: M Tech: Location: [id number] Ref.Provider: RHINA GRANADOS Height(Cm): 175 BSA: 2.1 [...] tamponade. Electronically Signed By: Gianni Francois MD, [facility] 2021-05-07 12:54:09 ROAD DESIGN ENGINEER Transthoracic Echo Complete W Doppler/CF Result Date: 05/02/2021 Narrative: [place] [address] Echocardiogram Report Patient Name: DEEPAK ALVARADO W : 1960 Study Date: 05/02/2021 8:50:02 AM Gender: M Tech: Location: [id number] Ref Provider: NALINI CLAYTONHeight(Cm): 175 BSA: 2.11 [...] Brito DO, FACJustyna, [place], FAISAL 2021-05-02 14:07:25 ROAD DESIGN ENGINEER CC: CC: CC: ASSESSMENT/PLAN Hyponatremia from SIADH [...] -monitor ?? I can be reached at [phone] with any concerns. Thank you Rhina Granados MD for the consult. Yves Weinberg MD [employer] [phone] DESIGN ENGINEER * Nalini Clayton MD - 05/25/2021 9:44 AM CST [facility] - Cardiology [facility] Progress Note Admit [...] found for: T3FREE No results found for: F5ABRGI Pain Assessment: No/denies pain Meds MEDICATIONS FOR [...] 40 mg 40 mg subcutaneous Daily-2099 ??? insulin lispro (HumaLOG, ADMELOG) 100 unit/mL [...] 1545 ? ? al & mag hydroxide ajrroreomha-ppqxueabbvringh-qkmblpveo-nystatin (MAGIC MOUTHWASH) suspension 1-1-1-1 20 mL swish [...] 80s on tele -Pro 2233 -CTS following ? COVID 19 - dx [...] - on Statin ?? Nalini Clayton MD DESIGN ENGINEER * Varsha Lee NP - 05/25/2021 9:40 AM CST Cardiothoracic Surgery Progress Note Deepak Adair Lazarus 1960 Hospital DAY#24 21 days postop Urgent [...] is stable to cough Rt SVG site CLINICAL CASE MANAGER with steri-strips C/D/I Neurological: General: No focal [...] Dispo: ICU Varsha Lee NP Cardiothoracic Surgery [place] C: [phone] [facility] Cosigned by Rhina Granados MD at 05/25/2021 3:[address] DESIGN ENGINEER DESIGN ENGINEER DESIGN ENGINEER * Yves Weinberg MD - 05/24/2021 2:04 PM CST Nephrology Progress Note [facility] SUBJECTIVE 05/24/21 Pt seen/examined. All labs [...] 1545 ? ? al & mag hydroxide azhehkvtrtx-hbyfvlnqynzoqnr-dfirpdkik-nystatin (MAGIC MOUTHWASH) suspension 1-1-1-1, 20 mL, swish [...] Daily, Silviano Huddleston NP, 6 mg at 05/24/21 0846 ??? dextrose [...] Nightly, Silviano Huddleston NP, 1 Units at 05/23/21 2131 ??? insulin [...] Nightly, Silviano Huddleston NP, 50 mg at 05/23/212057 ??? sodium chloride 0.9% flush 0.5-20 mL, 0.5-20 mL, intra-catheter, Q8H LEAH, Rhina Granados MD, 10 mL at 05/24/21 1242 ??? sodium phosphate - potassium phosphate (K-PHOS NEUTRAL) tablet 250 mg, 250 mg, oral, TID with meals, Silviano Huddleston NP, 250 mg at 05/24/21 1239 ??? spironolactone (ALDACTONE) tablet 25 mg, 25 mg, oral, Daily, Stephen Melgar MD, 25 mg at 05/24/21 08 ??? tamsulosin (FLOMAX) extended release capsule 0.4 [...] Aortic atherosclerosis. No failure. The right IJ Guadalupita-Radha catheter has been retracted with its tip [...] with left pleural fluid decreasing. No pneumothorax. Guadalupita-Radha catheter remainsin place Impression: Decreasing failure, atelectasis [...] with left pleural fluid decreasing. No pneumothorax. Guadalupita-Radha catheter remains in place Impression: Decreasing failure, [...] atelectasis with left pleural fluid. No pneumothorax. Guadalupita-Radha catheter remains in place Impression: Decreasing failure. No pneumothorax. Electronically signed by: Deacon Cummings M.D. XR Chest 1 View - Portable - in AM Result Date: 05/07/2021 Narrative: EXAMINATION: XR CHEST 1 VIEW DATE: 05/07/2021 3:55 AM HISTORY: 60-year-old man follow-upcardiac surgery FINDINGS:Compared with study of the previous day, postsurgical changes in the heartand mediastinum with cardiomegaly are stable. Guadalupita-Radha catheter remains in place. Left thoracostomy tube [...] Interval placement of endotracheal tube, nasogastric tube, Guadalupita-Radha catheter, left thoracostomy tube and mediastinal drain [...] Echo (TTE) Limited Result Date: 05/07/2021 Narrative: [place] [address] Limited Echocardiogram Report Patient Name: DEEPAK ALVARADO : 1960 StudyDate: 05/07/2021 12:16:52 PM Gender: M Tech: Location: [id number] Ref.Provider: RHINA GRANADOS Height(Cm): 175 BSA: 2.1 [...] tamponade. Electronically Signed By: Gianni Francois MD, [facility] :54:09 ROAD DESIGN ENGINEER Transthoracic Echo Complete W Doppler/CF Result Date: 05/02/2021 Narrative: [place] [address] Echocardiogram Report Patient Name: DEEPAK ALVARADO W : 1960 Study Date: 05/02/2021 8:50:02 AM Gender: M Tech: Location: [id number] Ref Provider: NALINI CLAYTONHeight(Cm): 175 BSA: 2.11 [...] of the mid anteroseptal, anterior, and apical mancilal. Normal left ventricularwall thickness. Impaired diastolic relaxation [...] Signed By: Rylee Brito DO, FACJustyna, [place], [facility] 2021-05-02 14:07:25 ROAD DESIGN ENGINEER CC: CC: CC: ASSESSMENT/PLAN Hyponatremia from SIADH [...] -monitor ?? I can be reached at [phone] with any concerns. Thank you Rhina Granados MD for the consult. Yves Weinberg MD [employer] [phone] DESIGN ENGINEER * Natalie Castañeda NP - 05/24/2021 1:20 [...] HDL mg/dL 31* Exam Physical exam deferred 07/22 NARCISO, examined at window, case discussed with RN [...] 37%, CABGx4 05/04/2021 - SR 80s on tele -Pro 2233 -CTS following COVID 19 - dx 05/19/2021 [...] NSVT 05/23 ?? HLD - on Statin aNtalie Castañeda NP [facility] 05/24/2021 1:20 PM Cosigned by Blue Cooley Jr., MD at 05/24/2021 1:[address] DESIGN ENGINEER DESIGN ENGINEER DESIGN ENGINEER * Anibal Lara MD - 05/24/2021 11:53 [...] 1545 ? ? al & mag hydroxide dpwcifbwivu-jemzidxembypoyz-xnslpfadz-nystatin (MAGIC MOUTHWASH) suspension 1-1-1-1 20 mL swish [...] Ralf Tomlinson MD 8 puff at 05/24/21 0822 ??? aspirin enteric coated tablet 81 mg 81 mg oral Daily Varsha Crwoder NP 81 mg at 05/24/21 0846 ??? atorvastatin (LIPITOR) tablet 80 mg 80 mg oral Nightly Rhina Granados MD 80 mg at 05/23/212057 ??? dapagliflozin (FARXIGA) tablet 10 mg 10 mg oral Daily Stephen Melgar MD 10 mg at 05/24/21 0846 ??? dexAMETHasone (DECADRON) 4 mg/mL injection 6 mg 6 mg intravenous Daily Silviano Huddleston, EFREN 6 mg at 05/24/21 0846 ??? dextrose [...] meals Silviano Huddleston NP 4 Units at 05/23/211818 ??? insulin lispro (HumaLOG, ADMELOG) 100 unit/mL injection 0-5 Units 0-5 Units subcutaneous Nightly Silviano Huddleston NP 1 Units at 05/23/212130 ??? insulin lispro (HumaLOG, ADMELOG) 100 unit/mL injection 7 Units 0.083 Units/kg subcutaneous TIDwith meals Silviano Huddleston NP 7 Units at 05/24/21 0958 ??? insulin NPH (HumuLIN N, NovoLIN N) 100 unit/mL injection 8 Units 8 Units subcutaneous Q6H [facility] Silviano Huddleston NP 8 Units at 05/24/21 0639 ??? ivabradine (CORLANOR) tablet 5 mg 5 mg oral BID with meals (bkfst, dinner) Stephen Melgar MD 5mg at 05/24/21845 ??? midodrine (PROAMATINE) tablet 15 mg 15 mg oral TID Silviano Huddleston NP 15 mg at 05/24/2146 ??? ondansetron (ZOFRAN) injection 4 mg 4 [...] flush 0.5-20 mL 0.5-20 mL intra-catheter Q8H [facility] Rhina Granados MD 10 mL at 05/24/2141 ??? sodium phosphate - potassium phosphate (K-PHOS [...] acetaminophen ? ? al & mag hydroxide rvbvmbnwcny-puxtjbpotdalreh-dtiskkycu-nystatin ??? albuterol ??? dextrose OR dextrose ??? [...] and transurethral resection of bladder tumor at [facility] -s/p 20??Finnish three way catheter -holding Plavix -cysto 05/14 [...] MD [facility] Hospitalist 05/24/2021 11:53 AM DESIGN ENGINEER * Lc Perez MD - 05/24/2021 9:14 AM CST Pulmonary Daily Progress Chief complaint/reason for consult: Respiratory failure. Interval History: Patient with improved oxygenation. Currently on 60% FiO2 45 liters/minute. Remains on dexamethasoneand remdesivir. COVID positive 05/19/21 Presenting History: 60 yo man w COPD, DM, CAD/stents admitted 05/01/21 with chest pain. Had recent hematuria as well. Workup revealed an acute AZ. Cath showed multi-vessel CAD. Had balloon pump [...] acetaminophen ? ? al & mag hydroxide efsnednjxej-cnbwrgefxycysev-fwvdhonzn-nystatin ??? albuterol ??? dextrose OR dextrose ??? [...] Assessment and Plan: Acute respiratory failure Acute AZ w CAD s/p CABG x 4 on [...] bronchodilators Increase activity as tolerated Chart reviewed DESIGN ENGINEER * Silviano Huddleston NP - 05/24/2021 8:09 [...] on 04/29. He was taken to the lab support technician on 04/30 where they found in-stent thrombosis [...] the ICU.? Hospital Course 04/29 Cystoscopy at [facility] 04/30 STEMI, lab support technician -> instent thrombosis, angioplasty, IABP, transfer to [facility] 05/04/21: Increased blood clot from osorio [...] acetaminophen ? ? al & mag hydroxide zpdmolngbfl-wcfujvyroavlqhb-ggdikknvp-nystatin ??? albuterol ??? dextrose OR dextrose ??? [...] parameters for last 24 hours: I/O: Date 05/23/21699 - 05/24/2165805/24/21699 - 05/25/21 0659 Shift 4584-9697 7651-5013 24 Hour Total 5658-8043 6561-5477 24 Hour Total INTAKE P.O. 4400 707 7067 357 357 I.V.(mL/kg) 165(2.1) 527(6.6) 692(8.7) Shift Total(mL/kg) 1245(15.7) 647(8.1) 1892(23.8) 357(4.5) 357(4.5) OUTPUT Urine(mL/kg/hr) 1845(1.9) 790(0.8) 2635(1.4) 200 200 Shift Total(mL/kg) 1845(23.2) 790(9.9) 2635(33.1) 200(2.5) 200(2.5) NET -600 -143 -743 157 157 Weight (kg) 79.5 79.5 79.5 [...] Dominique Wilkinson MD at 05/25/2021 1:[address] DESIGN ENGINEER DESIGN ENGINEER DESIGN ENGINEER * Yves Weinberg MD - 05/23/2021 5:15 PM CST Nephrology Progress Note [facility] SUBJECTIVE 05/23/21 Pt seen/examined. All labs [...] 1545 ? ? al & mag hydroxide tmkuzeslrmj-zmffuyeapdiswer-ckykjavir-nystatin (MAGIC MOUTHWASH) suspension 1-1-1-1, 20 mL, swish [...] Daily, Varsha Crowder NP, 81 mg at 05/23/21 0852 ??? atorvastatin (LIPITOR) tablet 80 mg, 80 mg, oral, Nightly, Rhina Granados MD, 80 mg at 05/22/21 2020 ??? dapagliflozin (FARXIGA) tablet 10 mg, 10 mg, oral, Daily, Stephen Melgar MD, 10 mg at ??? dexAMETHasone (DECADRON) 4 mg/mL injection 6 mg, 6 mg, intravenous, Daily, Silviano Huddleston NP, 6 mg at 05/23/21 0852 ??? dextrose oral liquid liquid 15 [...] Daily-2100, Rhina Granados MD, 40 mg at 05/22/21 2020 ??? glucagon injection 1 mg, 1 mg, [...] Units, 8 Units, subcutaneous, Q6H LEAH, Silviano Huddleston, EFREN, 8 Units at 05/23/21 1452 ??? ivabradine [...] mL IVPB, 100 mg, intravenous, Q24H, Elena eKlly NP, Last Rate: 270 mL/hr at 05/22/21 2311, [...] Aortic atherosclerosis. No failure. The right IJ Guadalupita-Radha catheter has been retracted with its tip [...] with left pleural fluid decreasing. No pneumothorax. Guadalupita-Radha catheter remainsin place Impression: Decreasing failure, atelectasis [...] with left pleural fluid decreasing. No pneumothorax. Guadalupita-Radha catheter remains in place Impression: Decreasing failure, [...] atelectasis with left pleural fluid. No pneumothorax. Guadalupita-Radha catheter remains in place Impression: Decreasing failure. No pneumothorax. Electronically signed by: Deacon Cummings M.D. XR Chest 1 View - Portable - in AM Result Date: 05/07/2021 Narrative: EXAMINATION: XR CHEST 1 VIEW DATE: 05/07/2021 3:55 AM HISTORY: 60-year-old man follow-upcardiac surgery FINDINGS:Compared with study of the previous day, postsurgical changes in the heartand mediastinum with cardiomegaly are stable. Guadalupita-Radha catheter remains in place. Left thoracostomy tube [...] pneumothorax. Impression: Increasing failure. Electronically signed by: Worthy Cummings, M.D. XR Chest 1 Vw Portable Result Date: 05/05/2021 Narrative: EXAMINATION: XR CHEST 1 VIEW DATE: 05/04/2021 8:40 PM HISTORY: 60-year-old man coronary artery bypass follow-up FINDINGS:Compared with the study of earlier the same day, postsurgical changes now evident within the heart and mediastinum with cardiomegaly. Interval placement of endotracheal tube, nasogastric tube, Guadalupita-Radha catheter, left thoracostomy tube and mediastinal drain [...] Echo (TTE) Limited Result Date: 05/07/2021 Narrative: [address] [address] Limited Echocardiogram Report Patient Name: DEEPAK ALVARADO : 1960 StudyDate: 05/07/2021 12:16:52 PM Gender: M Tech: Location: [place] [address] Ref.Provider: RHINA GRANADOS Height(Cm): 175 BSA: 2.1 [...] tamponade. Electronically Signed By: Gianni Francois MD, [facility] 2021-05-07 12:54:09 ROAD DESIGN ENGINEER Transthoracic Echo Complete W Doppler/CF Result Date: 05/02/2021 Narrative: [address] [place] [address] Echocardiogram Report Patient Name: DEEPAK ALVARADO W : 1960 Study Date: 05/02/2021 8:50:02 AM Gender: M Tech: Location: [place] [address] Ref Provider: NALINI CLAYTONHeight(Cm): 175 BSA: 2.11 [...] Brito DO, FACJustyna, [place], FAISAL 2021-05-02 14:07:25 ROAD DESIGN ENGINEER CC: CC: CC: ASSESSMENT/PLAN Hyponatremia from SIADH [...] -monitor ?? I can be reached at [phone] with any concerns. Thank you Rhina Granados MD for the consult. Yves Weinberg MD [employer] [phone] DESIGN ENGINEER * Silviano Huddleston NP - 05/23/2021 1:42 [...] on 04/29. He was taken to the lab support technician on 04/30 where they found in-stent thrombosis [...] the ICU.? Hospital Course 04/29 Cystoscopy at [facility] 04/30 STEMI, lab support technician -> instent thrombosis, angioplasty, IABP, transfer to [facility] 05/04/21: Increased blood clot from osorio [...] acetaminophen ? ? al & mag hydroxide fhiayfanvrr-itvahinfmwyvrmr-gxmaaicyj-nystatin ??? albuterol ??? dextrose OR dextrose ??? [...] 0659 05/23/21 0700 - 05/24/21 0659 Shift 2378-5555 0796-3505 24 Hour Total 7640-3295 5157-4802 24 Hour Total INTAKE P.O. 740 740 [...] Dominique Wilkinson MD at 05/25/2021 7:[address] DESIGN ENGINEER DESIGN ENGINEER DESIGN ENGINEER Associated attestation - Dominique Wilkinson MD - 05/25/2021 7:[address] DESIGN ENGINEER I have seen and examined the patient [...] and Critical Care Surgery Department of [facility] * Anibal Lara MD - 05/23/2021 1:19 [...] 1545 ? ? al & mag hydroxide gjukwcfwujr-ydokqpiyywabxnm-ucvwbaxqw-nystatin (MAGIC MOUTHWASH) suspension 1-1-1-1 20 mL swish [...] (RT) Ralf Tomlinson MD 8 puff at 05/23/21 0805 [...] Silviano Huddleston NP 6 mg at 05/23/21 08 ??? dextrose (D10W) 10% bolus 1-500 mL [...] 200 mg 200 mg oral QID PRN McLafferty, Caleb Cale, PA 200 mg at 05/21/21 0810 ??? [...] Silviano Huddleston NP 50 mg at ??? remdesivir (VEKLURY) 100 mg in sodium chloride 0.9% 250 mL IVPB 100 mg intravenous Q24H Elena Kelly, EFREN 270 mL/hr at 05/22/21 2311 100 mg at 05/22/21 2311 ??? sodium chloride 0.9% flush 0.5-20 mL 0.5-20 mL intra-catheter Q8H [facility] Rhina Granados MD 10 mL at 05/23/21 [...] insulin regular, 0-30 Units/hr, Last Rate: Stopped (05/23/21 1043) ??? acetaminophen ? ? al & mag hydroxide ttirqtrqjsq-rgrbkuwpkuidhne-woamczgpt-nystatin ??? albuterol ??? dextrose ??? dextrose OR [...] and transurethral resection of bladder tumor at [facility] -s/p 20??Finnish three way catheter -holding Plavix -cysto 05/14 [...] MD [facility] Hospitalist 05/23/2021 1:19 PM DESIGN ENGINEER * Stephen Melgar MD - 05/23/2021 11:59 [...] hematuria as well. Workup revealed an acute AZ. Cath showed multi-vessel CAD. Had balloon pump [...] acetaminophen ? ? al & mag hydroxide uuxvbjbdnaa-ojbgxdqwupmvain-irskxkofy-nystatin ??? albuterol ??? dextrose ??? dextrose OR [...] 05/23/21 0318 05/22/21 0625 05/22/21 0349 05/21/21 21405/21/218 05/19/21 0143 05/18/21213605/17/21 0936 05/17/21 0333 SODIUM mmol/L -- -- [...] 37%, CABGx4 05/04/2021 -- SR 80s on tele Pro 223 -- stable, follow ?? COVID 19 -- [...] 05/14 -- resolved ?? Urinary retention -- osoiro replaced today -- on Tamsulosin ?? S/p [...] farxiga good for chf corlanor for chf DESIGN ENGINEER * Lc Perez MD - 05/23/2021 8:50 [...] hematuria as well. Workup revealed an acute AZ. Cath showed multi-vessel CAD. Had balloon pump [...] acetaminophen ? ? al & mag hydroxide zhgwhhugqpp-bfjzdrrrceatkfw-ukwxqoomy-nystatin ??? albuterol ??? dextrose ??? dextrose OR [...] 0318 05/22/21 0625 05/22/21 0349 05/21/21 2141 05/21/21 2118 05/19/21 0143 05/18/21 2137 05/17/21 0936 05/17/21 [...] Assessment and Plan: Acute respiratory failure Acute AZ w CAD s/p CABG x 4 on [...] bronchodilators Increase activity as tolerated Chart reviewed DESIGN ENGINEER * Yves Weinberg MD - 05/22/2021 9:12 PM CST Nephrology Progress Note [facility] SUBJECTIVE 05/22/21 Pt seen/examined. All labs [...] Vitals: 05/22/21 1900 05/22/21 1915 05/22/21 1930 05/22/21 194 BP: 108/65 112/63 99/64 102/63 Pulse: 85 [...] 1545 ? ? al & mag hydroxide wlokyhulvxq-ftsrdewzabeqekl-chezwxnbz-nystatin (MAGIC MOUTHWASH) suspension 1-1-1-1, 20 mL, swish [...] Daily, Varsha Crowder, EFREN, 81 mg at 05/22/21 0836 ??? atorvastatin (LIPITOR) tablet 80 mg, 80 mg, oral, Nightly, Rhina Granados MD, 80 mg at 05/22/212019 ??? dexAMETHasone (DECADRON) 4 mg/mL injection 6 mg, 6 mg, intravenous, Daily, Silviano Huddleston,EFREN, 6 mg at 05/22/21 0836 ??? dextrose [...] Conti MD, Last Rate: 6.2 mL/hr at 05/22/21 2019, 6.2 Units/hr at 05/22/21 2019 ??? midodrine (PROAMATINE) tablet 15 mg, 15 [...] Nightly, Silviano Huddleston NP, 50 mg at 05/22/212019 ??? remdesivir (VEKLURY) 100 mg in sodium [...] Aortic atherosclerosis. No failure. The right IJ Guadalupita-Radha catheter has been retracted with its tip [...] with left pleural fluid decreasing. No pneumothorax. Guadalupita-Radha catheter remainsin place Impression: Decreasing failure, atelectasis [...] with left pleural fluid decreasing. No pneumothorax. Guadalupita-Radha catheter remains in place Impression: Decreasing failure, [...] atelectasis with left pleural fluid. No pneumothorax. Guadalupita-Radha catheter remains in place Impression: Decreasing failure. No pneumothorax. Electronically signed by: Deacon Cummings M.D. XR Chest 1 View - Portable - in AM Result Date: 05/07/2021 Narrative: EXAMINATION: XR CHEST 1 VIEW DATE: 05/07/2021 3:55 AM HISTORY: 60-year-old man follow-upcardiac surgery FINDINGS:Compared with study of the previous day, postsurgical changes in the heartand mediastinum with cardiomegaly are stable. Guadalupita-Radha catheter remains in place. Left thoracostomy tube [...] Interval placement of endotracheal tube, nasogastric tube, Guadalupita-Radha catheter, left thoracostomy tube and mediastinal drain [...] Echo (TTE) Limited Result Date: 05/07/2021 Narrative: [place] [address] Limited Echocardiogram Report Patient Name: DEEPAK ALVARADO : 1960 StudyDate: 05/07/2021 12:16:52 PM Gender: M Tech: Location: [id number] Ref.Provider: RHINA GRANADOS Height(Cm): 175 BSA: 2.1 [...] tamponade. Electronically Signed By: Gianni Francois MD, [facility] :54:09 ROAD DESIGN ENGINEER Transthoracic Echo Complete W Doppler/CF Result Date: 05/02/2021 Narrative: [place] [address] Echocardiogram Report Patient Name: DEEPAK ALVARADO W : 1960 Study Date: 05/02/2021 8:50:02 AM Gender: M Tech: Location: [place] [address] Ref Provider: NALINI CLAYTONHeight(Cm): 175 BSA: 2.11 [...] valve. Electronically Signed By: Rylee Brito, , [facility], [place], [facility] 2021-05-02 14:07:25 ROAD DESIGN ENGINEER CC: CC: CC: ASSESSMENT/PLAN Hyponatremia from SIADH [...] -monitor ?? I can be reached at [phone] with any concerns. Thank you Rhina Granados MD for the consult. Yves Weinberg MD [employer] [phone] DESIGN ENGINEER * Ellen Shore, LABORATORY HELPER - 05/22/2021 4:07 PM CST Physical Therapy [...] elevation myocardial infarction (STEMI) (HCC) TIME IN: 1607 TIME OUT: 1630 SUBJECTIVE [...] Sandee Paez, PT at 05/25/2021 7:[address] DESIGN ENGINEER DESIGN ENGINEER DESIGN ENGINEER * Shruthi Hu COTA - 05/22/2021 3:09 PM CST Occupational Therapy NOTE / SESSION TYPE: DAILY PROGRESS / TREATMENT Patient's Name: Deepka Alvarado Age / Sex: 60 y.o. / male Room: [place] [id number] : 1960 Date of service: 05/22/21 TIME [...] Yes Completed patient handoff and notified MANAGER RESEARCH DEVELOPMENT / RN, name: TIANA, of patient's location [...] > STANDING AT EOB WITHOUT DEVICE AND [id number] ASSIST ONLY CGA WITH OTWS-OM-ARDV ASSISTANCE FROM STANDING AT EOB > SEATED [...] Chiara Fonseca OT at 05/22/2021 5:[address] DESIGN ENGINEER DESIGN ENGINEER DESIGN ENGINEER * Anibal Lara MD - 05/22/2021 1:21 [...] 1545 ? ? al & mag hydroxide javqheinecy-tcalawfkriittnz-hrtltjhoh-nystatin (MAGIC MOUTHWASH) suspension 1-1-1-1 20 mL swish & spit Q4H PRN Elena Kelly NP ??? albuterol 2.5 mg /3 mL (0.083 %) nebulizer solution 2.5 mg 2.5 mg nebulization Q4H PRN (RT) Ralf Tomlinson MD 2.5 mg at 05/17/21 0224 ??? albuterol HFA (PROVENTIL HFA,VENTOLIN HFA,PROAIR HFA) 90 mcg/actuation inhaler 8 puff 8 puff inhalation Q4H While awake (RT) Rlaf Tomlinson MD 8 puff at 05/22/21 0916 [...] LEAH Rhina Granados MD 10 mL at 05/22/21 0506 ??? sodium phosphate - potassium phosphate (K-PHOS NEUTRAL) tablet 250 mg 250 mg oral TID with meals Silviano Huddleston NP 250 mg at 05/22/21 1220 ??? tamsulosin (FLOMAX) extended release capsule 0.4 mg 0.4 mg oral Daily with dinner Elena Kelly, [employer] MA[employer]ER 0.4 mg at 05/21/21 1823 insulin regular, 0-30 Units/hr, Last Rate: 4.8 Units/hr (05/22/21 1231) ??? acetaminophen ? ? al & mag hydroxide cdprwgztusg-ycfnkvxxagawmkz-hyojwpzud-nystatin ??? albuterol ??? dextrose ??? dextrose OR [...] and transurethral resection of bladder tumor at [facility] -s/p 20??Finnish three way catheter -holding Plavix -cysto 05/14 [...] MD [facility] Hospitalist 05/22/2021 1:21 PM DESIGN ENGINEER * Ralf Tomlinson MD - 05/22/2021 11:25 AM CST Pulmonary Daily Progress Chief complaint/reason for consult: Respiratory failure. Interval History: on optiflow 75%/50L, sats 100% Alert but confused Afebrile No sputum or chest pain COVID positive 05/19/21 Presenting History: 60 yo man w COPD, DM, CAD/stents admitted 05/01/21 with chest pain. Had recent hematuria as well. Workup revealed an acute AZ. Cath showed multi-vessel CAD. Had balloon pump [...] acetaminophen ? ? al & mag hydroxide piboggptkoh-npoeesklxrjjpis-hdnsjnjjz-nystatin ??? albuterol ??? dextrose ??? dextrose OR [...] Assessment and Plan: Acute respiratory failure Acute AZ w CAD s/p CABG x 4 on [...] bronchodilators Increase activity as tolerated Chart reviewed DESIGN ENGINEER * Varsha Lee NP - 05/22/2021 9:15 AM CST Cardiothoracic Surgery [...] Access: picc Recent Labs Lab Units 05/22/21 03405/21/21 0357 05/20/21 0328 WBC K/cumm 7.3 8.3 [...] 8.6 8.6 Recent Labs Lab Units 05/18/21195205/17/21 0220 PH [...] Dispo: ICU Varsha Lee NP Cardiothoracic Surgery [place] C: [phone] [facility] Cosigned by Rhina Granados MD at 05/22/2021 3:[address] DESIGN ENGINEER DESIGN ENGINEER DESIGN ENGINEER * Angelo Vance MD - 05/22/2021 9:04 [...] Lab Units 05/22/21 0349 05/21/21 2118 05/21/21 21105/21/21 0413 05/21/21 0413 BUN SERUM mg/dL 24 -- 31* -- [...] acetaminophen ? ? al & mag hydroxide orrnyfzgbjy-vmqpjmloimhawra-xuycvndev-nystatin ??? albuterol ??? dextrose ??? dextrose OR [...] questions or changes Angelo Vance MD 05/22/2021 DESIGN ENGINEER * Nalini Clayton MD - 05/22/2021 8:04 AM CST [facility] - Cardiology [facility] Progress Note Admit [...] found for: T3FREE No results found for: [id number] Meds MEDICATIONS FOR CURRENT ENCOUNTER: SCHEDULED MEDICATIONS: [...] 1545 ? ? al & mag hydroxide nhhakhgyaqn-qelzzlmlfpkhlvs-bujlgamok-nystatin (MAGIC MOUTHWASH) suspension 1-1-1-1 20 mL swish [...] with ICU team ?? Nalini Clayton MD DESIGN ENGINEER * Silviano Huddleston NP - 05/22/2021 7:44 [...] on 04/29. He was taken to the lab support technician on 04/30 where they found in-stent thrombosis [...] the ICU.? Hospital Course 04/29 Cystoscopy at [facility] 04/30 STEMI, lab support technician -> instent thrombosis, angioplasty, IABP, transfer to [facility] 05/04/21: Increased blood clot from osorio [...] acetaminophen ? ? al & mag hydroxide mxmdcntjiah-dqrugrfurnsosmn-biuqwwryt-nystatin ??? albuterol ??? dextrose ??? dextrose OR [...] last 24 hours: I/O: Date 05/21/21699 - 05/22/21 0605/22/21699 - 05/23/2159 Shift 0688-5743 1962-5625 24 Hour Total 1563-5140 2701-0111 24 Hour Total INTAKE P.O. 50 500 [...] - S/p CABG by MD Granados - [facility] (04/30) -> in-stent restenosis, unsuccessful angioplasty, IABP [...] Alexandru Porter MD at 05/29/2021 6:[address] DESIGN ENGINEER DESIGN ENGINEER DESIGN ENGINEER * Yves Weinberg MD - 05/21/2021 7:23 PM CST Nephrology Progress Note [facility] SUBJECTIVE 05/21/21 Pt seen/examined. All labs [...] 1545 ? ? al & mag hydroxide kbaoikkqcou-voluxbxkraespfi-mztcahmqs-nystatin (MAGIC MOUTHWASH) suspension 1-1-1-1, 20 mL, swish [...] 80 mg, 80 mg, oral, Nightly, Rhina Grandaos MD, 80 mg at 05/20/212053 ??? dexAMETHasone (DECADRON) 4 mg/mL injection 6 mg, 6 mg, intravenous, Daily, Elena Kelly, EFREN, 6 mg at 05/21/21810 ??? dextrose oral liquid liquid 15 g, 15 g, oral, Q15 Min PRN OR dextrose (D10W) 10% bolus 250 mL, 250 mL, intravenous, Q15 Min PRN, Anibal Lara MD ??? docusate sodium (COLACE) capsule 100 mg, 100 mg, oral, BID, 100 mg at 05/21/21809 OR [DISCONTINUED] docusate (COLACE) 10 mg/mL oral [...] PRN, Caleb Toth PA, 200 mg at 05/21/21809 ??? insulin glargine (LANTUS, SEMGLEE) 100 unit/mL injection 8 Units, 8 Units, subcutaneous, QAMBenji Farid, MD, 8 Units at 05/21/21810 ??? insulin lispro (HumaLOG, ADMELOG) 100 unit/mL injection 0-12 Units, 0-12 Units, subcutaneous, 5x daily (with meals, nightly, & 0200), Abelino Leblanc MD, 6 Units at 05/21/214 ??? [START ON 05/22/2021] insulin NPH (HumuLIN [...] Daily, Rhina Granados MD, 40 mg at 05/21/21809 ??? polyethylene glycol (MIRALAX) packet 17 g, 17 g, oral, Daily PRN, Rhina Granados MD ??? QUEtiapine (SEROquel) tablet 25 mg, 25 mg, oral, Nightly, Rhina Granados MD, 25 mg at 05/20/212053 ??? remdesivir (VEKLURY) 100 mg in sodium chloride 0.9% 250 mL IVPB, 100 mg, intravenous, Q24H, Elena Kelly NP, Last Rate: 270 mL/hr at 05/20/216, 100 mg at 05/20/212315 ??? sodium chloride 0.9% flush 0.5-20 mL, 0.5-20 mL, intra-catheter, Q8H LEAH, Rhina Granados MD, 10 mL at 05/21/21810 ??? sodium phosphate - potassium phosphate (K-PHOS [...] Aortic atherosclerosis. No failure. The right IJ Guadalupita-Radha catheter has been retracted with its tip [...] with left pleural fluid decreasing. No pneumothorax. Guadalupita-Radha catheter remainsin place Impression: Decreasing failure, atelectasis [...] with left pleural fluid decreasing. No pneumothorax. Guadalupita-Radha catheter remains in place Impression: Decreasing failure, [...] atelectasis with left pleural fluid. No pneumothorax. Guadalupita-Radha catheter remains in place Impression: Decreasing failure. No pneumothorax. Electronically signed by: Deacon Cummings M.D. XR Chest 1 View - Portable - in AM Result Date: 05/07/2021 Narrative: EXAMINATION: XR CHEST 1 VIEW DATE: 05/07/2021 3:55 AM HISTORY: 60-year-old man follow-upcardiac surgery FINDINGS:Compared with study of the previous day, postsurgical changes in the heartand mediastinum with cardiomegaly are stable. Guadalupita-Radha catheter remains in place. Left thoracostomy tube [...] Interval placement of endotracheal tube, nasogastric tube, Guadalupita-Radha catheter, left thoracostomy tube and mediastinal drain [...] Echo (TTE) Limited Result Date: 05/07/2021 Narrative: [place] [id number] Limited Echocardiogram Report Patient Name: DEEPAK ALVARADO : 1960 StudyDate: 05/07/2021 12:16:52 PM Gender: M Tech: Location: [place] [address] Ref.Provider: RHINA GRANADOS Height(Cm): 175 BSA: 2.1 [...] tamponade. Electronically Signed By: Gianni Francois MD, [facility] :54:09 ROAD DESIGN ENGINEER Transthoracic Echo Complete W Doppler/CF Result Date: 05/02/2021 Narrative: [address] [address] Echocardiogram Report Patient Name: DEEPAK ALVARADO W : 1960 Study Date: 05/02/2021 8:50:02 AM Gender: M Tech: Location: [id number] Ref Provider: NALINI CLAYTONHeight(Cm): 175 BSA: 2.11 [...] 1.70 - 2.10 ] cm IVSd 2D 0 .76 [ 0.60 - 0.90 ] cm LVOT [...] Valve: Normal structure of the mitral valve. Trivi al regurgitation of the mitral valve. Pulmonic Valve: [...] Signed By: Rylee Brito, , FACJustyna, [place], FASMARA 2021-05-02 14:07:25 ROAD DESIGN ENGINEER CC: CC: CC: ASSESSMENT/PLAN Hyponatremia from SIADH [...] -monitor ?? I can be reached at [phone] with any concerns. Thank you Rhina Granados MD for the consult. Yves Weinberg MD [employer] [phone] DESIGN ENGINEER * Shruthi Hu COTA - 05/21/2021 3:38 PM CST Occupational Therapy NOTE / SESSION TYPE: DAILY PROGRESS / TREATMENT Patient's Name: Deepak Alvarado Age / Sex: 60 y.o. / male Room: [place] [address] : 1960 Date of service: 05/21/21 TIME [...] Yes Completed patient handoff and notified MANAGER RESEARCH DEVELOPMENT / RN, name: TIANA, of patient's location [...] PULLOVER SHIRT. PATIENT ADHERED TO STERNAL PRECAUTIONS [id number]% ACCURACY AND MIN VCS PRN AFTER INITIAL [...] Rich Haynes OT at 05/21/2021 4:[address] DESIGN ENGINEER DESIGN ENGINEER DESIGN ENGINEER * Anibal Lara MD - 05/21/2021 12:27 [...] 0811 ? ? al & mag hydroxide ygajpzixtnk-ekjccowotwgtevg-zueecjltc-nystatin (MAGIC MOUTHWASH) suspension 1-1-1-1 20 mL swish [...] Daily Varsha Crowder NP 81 mg at 05/21/21809 ??? atorvastatin (LIPITOR) tablet 80 mg 80 [...] BID Rhina Granados MD 100 mg at 05/21/21809 ??? enoxaparin (LOVENOX) syringe 40 mg 40 mg subcutaneous Daily-2100 Rhina Granados MD 40 mg at107/21/202053 ??? glucagon injection 1 mg 1 mg intramuscular Q30 Min PRN Anibal Lara MD ??? guaiFENesin (ROBITUSSIN) 20 mg/mL oral liquid 200 mg 200 mg oral QID PRN Caleb Toth PA 200 mg at 05/21/21809 ??? insulin glargine (LANTUS, SEMGLEE) 100 unit/mL injection 8 Units 8 Units subcutaneous QAM Abelino Leblanc MD 8 Units at 05/21/21 08 ??? insulin lispro (HumaLOG, ADMELOG) 100 unit/mL injection 0-12 Units 0-12 Units subcutaneous 5x daily (with meals, nightly, & 0200) Abelino Leblanc MD 4 Units at 05/21/21 1204 ??? insulin NPH (HumuLIN N, NovoLIN N) 100 unit/mL injection 8 Units 8 Units subcutaneous Daily Silviano Huddleston NP 8 Units at 05/21/21 08 ??? midodrine (PROAMATINE) tablet 15 mg 15 mg oral Q6H Rhina Granados MD 15 mg at 05/21/21809 ??? ondansetron (ZOFRAN) injection 4 mg 4 mg intravenous Q6H PRN Rhina Granados MD ??? pantoprazole DR (PROTONIX) extended release tablet 40 mg 40 mg oral Daily Rhina Granados MD40 mg at 05/21/21 0810 ??? polyethylene glycol [...] acetaminophen ? ? al & mag hydroxide bfoiqqxibaf-allgmgnnfmdqdvf-hsyvpjvng-nystatin ??? albuterol ??? dextrose OR dextrose ??? [...] and transurethral resection of bladder tumor at [facility] -s/p ??Finnish three way catheter -holding Plavix -cysto 05/14 [...] MD Team Health Hospitalist 05/21/2021 12:27 PM DESIGN ENGINEER * Ralf Tomlinson MD - 05/21/2021 11:21 AM CST Pulmonary Daily Progress Chief complaint/reason for consult: Respiratory failure. Interval History: on optiflow 75%/40L, sats mid 90s Alert Afebrile No sputum or chest pain Some delirium noted COVID positive 05/19/21 Presenting History: 60 yo man w COPD, DM, CAD/stents admitted 05/01/21 with chest pain. Had recent hematuria as well. Workup revealed an acute AZ. Cath showed multi-vessel CAD. Had balloon pump [...] acetaminophen ? ? al & mag hydroxide vrjwzyojlag-smygyjksjkqgjkk-nhhpwijjy-nystatin ??? albuterol ??? dextrose OR dextrose ??? [...] Assessment and Plan: Acute respiratory failure Acute AZ w CAD s/p CABG x 4 on [...] bronchodilators Increase activity as tolerated Chart reviewed DESIGN ENGINEER * Ellen Maynard NP - 05/21/2021 10:35 [...] Discussed with ICU team Ellen Maynard NP [facility] 05/21/2021 10:35 AM Cosigned by Nalini Clayton MD at 05/21/2021 11:[address] DESIGN ENGINEER DESIGN ENGINEER DESIGN ENGINEER Associated attestation - Nalini Clayton MD - 05/21/2021 11:[address] DESIGN ENGINEER PATIENT SEEN. AGREE WITH THE NOTE * [...] is stable to cough Rt SVG site CLINICAL CASE MANAGER with steri-strips C/D/I Neurological: General: No focal deficit present. Mental Status: He is alert and oriented to person, place, and time. Psychiatric: Mood and Affect: Mood normal. Access: picc Recent Labs Lab Units 05/21/21 0357 05/20/21 [...] 8.6 8.8 8.4* Recent Labs Lab Units 05/18/21 1953 05/17/21 0220 PH ART 7.45 7.50* PCO2 ART [...] Dispo: ICU Varsha Lee NP Cardiothoracic Surgery [place] C: [phone] [facility] Cosigned by Rhina Granados MD at 05/21/2021 2:[address] DESIGN ENGINEER DESIGN ENGINEER DESIGN ENGINEER * Angelo Vance MD - 05/21/2021 9:11 [...] acetaminophen ? ? al & mag hydroxide lunybmbzcbx-qckkxsszyvgvnsi-pclyegakp-nystatin ??? albuterol ??? dextrose OR dextrose ??? [...] and IV steroids 2. Continue supportive care Adnan Farhat Vance, MD 05/21/2021 DESIGN ENGINEER * Silviano Huddleston NP - 05/21/2021 8:00 [...] on 04/29. He was taken to the lab support technician on 04/30 where they found in-stent thrombosis [...] the ICU.? Hospital Course 04/29 Cystoscopy at [facility] 04/30 STEMI, lab support technician -> instent thrombosis, angioplasty, IABP, transfer to [facility] 05/04/21: Increased blood clot from osorio [...] acetaminophen ? ? al & mag hydroxide qshiyffitvz-lzpaottrfghsslb-wslxulqnp-nystatin ??? albuterol ??? dextrose OR dextrose ??? [...] 0659 05/21/21 0700 - 05/22/21 0659 Shift 4860-5957 24 Hour Total 3375-5537 3885-6761 24 Hour Total INTAKE P.O. 673 50 [...] Repeat BMP in am ?? Heme: #ABLA /2 surgery - No active signs of bleeding [...] Alexandru Porter MD at 05/22/2021 1:[address] DESIGN ENGINEER DESIGN ENGINEER DESIGN ENGINEER * Anibal Lara MD - 05/20/2021 2:00 [...] 1624 ? ? al & mag hydroxide dtrygfwbtev-igweznthftxfkir-jmuxzotwa-nystatin (MAGIC MOUTHWASH) suspension 1-1-1-1 20 mL swish [...] Nightly Rhina Granados MD 80 mg at 05/19/21 2032 ??? dexAMETHasone (DECADRON) 4 mg/mL injection 6 [...] Q8H Rhina Flores MD 10 mL at 05/20/21 1356 ??? tamsulosin (FLOMAX) extended release capsule 0.4 mg 0.4 mg oral Daily with dinner Elena Kelly NP 0.4 mg at 05/19/21 1638 ??? acetaminophen ? ? al & mag hydroxide ixremlecwpj-ouxouaqtbrgvtac-zkzbjrjle-nystatin ??? albuterol ??? dextrose OR dextrose ??? [...] and transurethral resection of bladder tumor at [facility] -s/p 20??Finnish three way catheter -holding Plavix -cysto 05/14 [...] MD Team [facility] Hospitalist 05/20/2021 2:00 PM DESIGN ENGINEER * Yves Weinberg MD - 05/20/2021 12:33 PM CST Nephrology Progress Note [facility] SUBJECTIVE 05/20/21 Pt seen/examined. All labs [...] 1624 ? ? al & mag hydroxide vcnfysufhtp-rdcaegegskgdxnn-rqondmkfx-nystatin (MAGIC MOUTHWASH) suspension 1-1-1-1, 20 mL, swish [...] QAM, Abelino Leblanc MD, 8 Units at 05/20/21 0848 ??? [...] tablet 40 mg, 40 mg, oral, Daily, Rhian Granados MD, 40 mg at 05/20/21 0858 ??? polyethylene glycol (MIRALAX) packet 17 g, 17 g, oral, Daily PRN, Rhina Granados MD ??? QUEtiapine (SEROquel) tablet 25 mg, 25 mg, oral, Nightly, Rhina Granados MD, 25 mg at 05/19/212031 ??? [START ON 05/21/2021] remdesivir (VEKLURY) 100 mg in sodium chloride 0.9% 250 mL IVPB, 100 mg, intravenous, Q24H, Elena Kelly, EFREN ??? [...] Aortic atherosclerosis. No failure. The right IJ Guadalupita-Radha catheter has been retracted with its tip [...] with left pleural fluid decreasing. No pneumothorax. Guadalupita-Radha catheter remainsin place Impression: Decreasing failure, atelectasis [...] with left pleural fluid decreasing. No pneumothorax. Guadalupita-Radha catheter remains in place Impression: Decreasing failure, [...] atelectasis with left pleural fluid. No pneumothorax. Guadalupita-Radha catheter remains in place Impression: Decreasing failure. No pneumothorax. Electronically signed by: Deacon Cummings M.D. XR Chest 1 View - Portable - in AM Result Date: 05/07/2021 Narrative: EXAMINATION: XR CHEST 1 VIEW DATE: 05/07/2021 3:55 AM HISTORY: 60-year-old man follow-upcardiac surgery FINDINGS:Compared with study of the previous day, postsurgical changes in the heartand mediastinum with cardiomegaly are stable. Guadalupita-Radha catheter remains in place. Left thoracostomy tube [...] Interval placement of endotracheal tube, nasogastric tube, Guadalupita-Radha catheter, left thoracostomy tube and mediastinal drain [...] Echo (TTE) Limited Result Date: 05/07/2021 Narrative: [place] [id number] Limited Echocardiogram Report Patient Name: DEEPAK ALVARADO : 1960 StudyDate: 05/07/2021 12:16:52 PM Gender: M Tech: SR Location: [id number] Ref.Provider: RHINA GRANADOS Height(Cm): 175 BSA: 2.1 [...] tamponade. Electronically Signed By: Gianni Francois MD, [facility] 2021-05-07 12:54:09 ROAD DESIGN ENGINEER Transthoracic Echo Complete W Doppler/CF Result Date: 05/02/2021 Narrative: [place] [id number] Echocardiogram Report Patient Name: DEEPAK ALVARADO W : 1960 Study Date: 05/02/2021 8:50:02 AM Gender: M Tech: SR Location: [id number] Ref Provider: NALINI CLAYTONHeight(Cm): 175 BSA: 2.11 [...] valve. Electronically Signed By: Rylee Brito DO, [facility]ITALJust[facility], [place], [facility] 2021-05-02 14:07:25 ROAD DESIGN ENGINEER CC: CC: CC: ASSESSMENT/PLAN Hyponatremia from SIADH [...] -monitor ?? I can be reached at [phone] with any concerns. Thank you Rhina Granados MD for the consult. Yves Weinberg MD [employer] [phone] DESIGN ENGINEER * Ralf Tomlinson MD - 05/20/2021 11:21 AM CST Pulmonary Daily Progress Chief complaint/reason for consult: Respiratory failure. Interval History: Noted to be COVID positive yesterday Oxygen requirements increased overnight, put on optiflow Alert Afebrile No sputum or chest pain Presenting History: 60 yo man w COPD, DM, CAD/stents admitted 05/01/21 with chest pain. Had recent hematuria as well. Workup revealed an acute AZ. Cath showed multi-vessel CAD. Had balloon pump [...] acetaminophen ? ? al & mag hydroxide xftphfqklpa-cangroxtolrpqia-drnxswwby-nystatin ??? albuterol ??? dextrose OR dextrose ??? [...] 0902 05/20/21 0328 05/20/21 0128 05/20/21 0025 05/19/21203605/19/21 1645 05/19/21 0143 05/18/21 2137 05/17/21 0936 [...] Assessment and Plan: Acute respiratory failure Acute AZ w CAD s/p CABG x 4 on [...] bronchodilators Increase activity as tolerated Chart reviewed DESIGN ENGINEER * Nasima Watson MD - 05/20/2021 10:39 [...] ~40% -balloon angioplasty was performed during acute AZ and subsequently patient underwent CABG x4 on [...] -on dexamethasone and remdesivir Nasima Watson MD, [facility] 05/20/2021 10:39 AM DESIGN ENGINEER * Rhina Granados MD - 05/20/2021 10:23 [...] Net: +200 90 cc last 24 hours, -25053 cc since admission Physical Exam Constitutional: General: [...] 8.8 8.4* 8.8 Recent Labs Lab Units 05/18/21 1953 05/17/21 0220 PH ART 7.45 7.50* PCO2 ART [...] in ICU Rhina Granados MD Cardiothoracic Surgery [facility] DESIGN ENGINEER * Lise Suggs NP - 05/20/2021 8:59 AM CST Urology Progress [...] ST elevation myocardial infarction (STEMI) ([facility]) 60 y.o. male with gross hematuria [...] any questions. Lise Suggs NP Urology Division [facility] Office [phone] 05/20/2021 9:00 AM Cosigned by Braulio Ortega MD at 05/21/2021 9:[address] DESIGN ENGINEER DESIGN ENGINEER DESIGN ENGINEER * Silviano Huddleston NP - 05/20/2021 8:00 [...] on 04/29. He was taken to the lab support technician on 04/30 where they found in-stent thrombosis [...] the ICU.? Hospital Course 04/29 Cystoscopy at [facility] 04/30 STEMI, lab support technician -> instent thrombosis, angioplasty, IABP, transfer to [facility] 05/04/21: Increased blood clot from osorio [...] acetaminophen ? ? al & mag hydroxide fydjbzxxvet-abmaqyaqtibccte-elhzfmsdg-nystatin ??? albuterol ??? dextrose OR dextrose ??? [...] Max: 98 % LDA: PICC Double Lumen 11/29/21 Non-tunneled Power #1 Red, #2 Purple, Right [...] 05/20/21 0659 05/20/21699 - 05/21/21 0659 Shift 7310-6342 7499-2640 24 Hour Total 9390-9592 2288-2689 24 Hour Total INTAKE P.O. 600 240 [...] Alexandru Porter MD at 05/20/2021 6:[address] DESIGN ENGINEER DESIGN ENGINEER DESIGN ENGINEER * Yves Weinberg MD - 05/19/2021 11:21 PM CST Nephrology Progress Note [facility] SUBJECTIVE 05/19 Cr 1.41 Na 130. [...] 1624 ? ? al & mag hydroxide ercecblmtmd-jpzvfibmlncqscf-vgdnbriie-nystatin (MAGIC MOUTHWASH) suspension 1-1-1-1, 20 mL, swish [...] IVPB, 100 mg, intravenous, Q24H, Elena Kelly, EFREN ??? [START ON 05/20/2021] remdesivir (VEKLURY) 200 mg in sodium chloride 0.9% 250 mL IVPB, 200 mg, intravenous, Q24H, Elena Kelly NP ??? sodium chloride 0.9% flush 0.5-20 mL, 0.5-20 mL, intra-catheter, Q8H [facility] Nabil A., MD, 10 mL at 05/19/21 1400 ??? [...] Aortic atherosclerosis. No failure. The right IJ Guadalupita-Radha catheter has been retracted with its tip [...] with left pleural fluid decreasing. No pneumothorax. Guadalupita-Radha catheter remainsin place Impression: Decreasing failure, atelectasis [...] with left pleural fluid decreasing. No pneumothorax. Guadalupita-Radha catheter remains in place Impression: Decreasing failure, [...] atelectasis with left pleural fluid. No pneumothorax. Guadalupita-Radha catheter remains in place Impression: Decreasing failure. No pneumothorax. Electronically signed by: Deacon Cummings M.D. XR Chest 1 View - Portable - in AM Result Date: 05/07/2021 Narrative: EXAMINATION: XR CHEST 1 VIEW DATE: 05/07/2021 3:55 AM HISTORY: 60-year-old man follow-upcardiac surgery FINDINGS:Compared with study of the previous day, postsurgical changes in the heartand mediastinum with cardiomegaly are stable. Guadalupita-Radha catheter remains in place. Left thoracostomy tube [...] Interval placement of endotracheal tube, nasogastric tube, Guadalupita-Radha catheter, left thoracostomy tube and mediastinal drain [...] Echo (TTE) Limited Result Date: 05/07/2021 Narrative: [place] [address] Limited Echocardiogram Report Patient Name: DEEPAK ALVARADO : 1960 StudyDate: 05/07/2021 12:16:52 PM Gender: M Tech: Location: [place] [address] Ref.Provider: RHINA GRANADOS Height(Cm): 175 BSA: 2.1 [...] tamponade. Electronically Signed By: Gianni Francois MD, [facility] 2021-05-07 12:54:09 ROAD DESIGN ENGINEER Transthoracic Echo Complete W Doppler/CF Result Date: 05/02/2021 Narrative: [place] [address] Echocardiogram Report Patient Name: DEEPAK ALVARADO W : 1960 Study Date: 05/02/2021 8:50:02 AM Gender: M Tech: Location: [place] [address] Ref Provider: NALINI CLAYTONHeight(Cm): 175 BSA: 2.11 [...] Valve: Normal structure of the mitral valve. Trivi al regurgitation of the mitral valve. Pulmonic Valve: [...] valve. Electronically Signed By: Rylee Brito DO, [facility], [place], FAISAL 2021-05-02 14:07:25 ROAD DESIGN ENGINEER CC: CC: CC: ASSESSMENT/PLAN Hyponatremia from SIADH [...] Continue diuresis. RHC not done. Agree with Corconyor. ?? Hypokalemia from diuresis. Replace PRN. ?? [...] -monitor ?? I can be reached at [phone] with any concerns. Thank you Rhina Granados MD for the consult. Yves Weinberg MD [employer] [phone] DESIGN ENGINEER * Elena Kelly NP - 05/19/2021 7:00 PM CST Images from the original note were not included. Critical Care Medicine Daily Progress Team: Community Subjective Patient is a 60 y.o. y/o [...] on 04/29. He was taken to the lab support technician on 04/30 where they found in-stent thrombosis [...] the ICU. Hospital Course 04/29 Cystoscopy at [facility] 04/30 STEMI, lab support technician -> instent thrombosis, angioplasty, IABP, transfer to [facility] 05/04/21: Increased blood clot from osorio [...] acetaminophen ? ? al & mag hydroxide bcbmbxaoskt-youbunhiteayoat-lfibwjjzw-nystatin ??? albuterol ??? dextrose OR dextrose ??? [...] (MAC) Number of days: 12 I/O: Date 05/19/21699 - 05/20/21 0659 05/20/21 07 - 05/21/21 0659 Shift 8683-7444 1855-3013 24 Hour Total 2252-9665 3336-5251 24 Hour Total INTAKE P.O. 600 240 [...] - S/p CABG by MD Granados - [facility] (04/30) -> in-stent restenosis, unsuccessful angioplasty, IABP [...] been reviewed with attending, MD Sushila Kelly, AGACNP- [phone], [place] 1 Critical Care Medicine [facility] Cosigned by Jose Conti MD at 05/20/2021 2:[address] DESIGN ENGINEER DESIGN ENGINEER DESIGN ENGINEER * Cristina Anaya, RD - 05/19/2021 5:14 PM CST Nutrition [...] surgeryEvidenced by: Physical finding ?? Interventions: Communication,Encouragement,Modify supplement,[place] diet preferences within the limits of nutrition [...] ST elevation (STEMI) myocardial infarction ([facility]) 05/01/2021 Medications and Lab Review: Scheduled [...] medication as directed by your doctor. Call [phone] to speak with a dietitian about any diet related concerns. Recommend to follow up with outpatient nutrition counseling, ask your doctor for a referral and call [phone] to make an appointment. Nutrition Follow-Up : 05/25/[address],LD DESIGN ENGINEER * Ralf Tomlinson MD - 05/19/2021 11:59 AM CST Pulmonary Daily Progress Chief complaint/reason for consult: Respiratory failure. Interval History: Breathing comf on 2L, improving Alert Afebrile No sputum Or chest pain Presenting History: 60 yo man w COPD, DM, CAD/stents admitted 05/01/21 with chest pain. Had recent hematuria as well. Workup revealed an acute AZ. Cath showed multi-vessel CAD. Had balloon pump [...] acetaminophen ? ? al & mag hydroxide mwvhrcsrhus-hbvdnyihwyeccgy-urnsklmur-nystatin ??? albuterol ??? dextrose OR dextrose ??? [...] 0444 05/19/21 0205 05/19/21 0143 05/18/21 2137 05/18/21199905/18/21 1730 05/17/21 0936 05/17/21 0333 SODIUM mmol/L [...] Assessment and Plan: Acute respiratory failure Acute AZ w CAD s/p CABG x 4 on [...] bronchodilators Increase activity as tolerated Chart reviewed DESIGN ENGINEER * Oscar Gonzalez MD - 05/19/2021 11:50 [...] 0932 ? ? al & mag hydroxide bqiigwjwduu-zrgiuevemrlqszp-pocyhwlnl-nystatin (MAGIC MOUTHWASH) suspension 1-1-1-1 20 mL swish [...] oral Daily Rhina Granados MD40 mg at 05/19/21 0810 ??? [...] Elena Kelly NP 0.4 mg at 05/18/21 1715 norepinephrine, 0-2 mcg/kg/min, Last Rate: Stopped (05/19/21 0640) ??? acetaminophen ? ? al & mag hydroxide lrkuaywgiep-lrdbdeuntwfgbea-tapccvgln-nystatin ??? albuterol ??? dextrose OR dextrose ??? [...] and transurethral resection of bladder tumor at [facility] -s/p 20??Finnish three way catheter, urine still bloody -holding [...] MD [facility] Hospitalist 05/19/2021 11:50 AM DESIGN ENGINEER DESIGN ENGINEER * Caleb Toth PA - 05/19/2021 10:34 [...] on 04/29. He was taken to the lab support technician on 04/30 where they found in-stent thrombosis [...] acetaminophen ? ? al & mag hydroxide dbytqfhkluc-wneyewrcqrehuzz-rlaykvvej-nystatin ??? albuterol ??? dextrose OR dextrose ??? [...] [1 mmHg-11 mmHg] 10 mmHg I/O: Date 11/699 - 05/19/2159 05/19/21699 - 05/20/21 0659 Shift [id number] 24 Hour Total 8470-0812 6206-7093 24 Hour Total INTAKE P.O. 180 360 [...] HFrEF in setting of recent CABG and AZ - Diuresis defered - Unable to tolerate [...] has been reviewed with attending, HEIDY Colon [phone], [place] , [place] 2 Critical Care Medicine [facility] Critical Care Performed by: Caleb Toth PA [...] plan with the patient's team and other medical/program evaluation consultant staff. This time was in addition to and separate from care provided by other practitioners on this day of service. Cosigned by Alexandru Porter MD at 05/19/2021 6:[address] DESIGN ENGINEER DESIGN ENGINEER DESIGN ENGINEER * Vernon Boone MD - 05/19/2021 8:28 AM CST Daily Progress SUBJECTIVE: Pt denies c/o Sitting in chair Denies chest pains. OBJECTIVE: Vitals: 05/19/21 0730 05/19/21 0745 05/19/21 0800 05/19/21 0815 BP: 91/46 (!) 88/59 95/82 BP Location: Patient Position: Pulse: 110 109 110 107 Resp: 25 Temp: 36.8 ??C (98.2 ??F) TempSrc: [...] ~40% -balloon angioplasty was performed during acute AZ and subsequently patient underwent CABG x4 on [...] function stable Add chandu Boone MD, MSN, ANP-[facility] 05/19/2021 8:28 AM DESIGN ENGINEER * Rich Haynes OT - 05/19/2021 8:02 AM CST Occupational Therapy NOTE / SESSION TYPE: Re-evaluation Patient Name: Deepak Alvarado Date of : 1960 Age / Sex: 60 y.o. / male Room: [place] [id number] Admit Date: 05/01/2021 Date of Service: 05/19/21 Time In: 0950 Time Out: 1019 Primary Diagnosis: ST elevation myocardial infarction (STEMI) (HCC) HPI: Deepak Alvarado is a 60 y.o. male who presents with retrosternal chest pain accompanied by sweating and shortness of breath. Patient underwent bladder surgery (cystoscopy, clot evacuation, and transurethral resection of bladder tumor) ??at [facility] 04/30/2021 and was discharged 05/01/2021. Patient transferred to for emergent cardiac catheterization. Patient admitted with acute anterior wall AZ, s/p cardiac cath with PTCA of the [...] Yes Completed patient handoff and notified MANAGER RESEARCH DEVELOPMENT / RN, name: Betty, of patient's location [...] throughout except shoulders 3-/5 Hand Dominance: Right Puppy Trainer Strength (Right) good Puppy Trainer Strength (Left): good Right Serial Opposition: Intact [...] (from Occupational Therapy) Active Problems Problem: OT [facility] Start Date: 05/07/21 Goal Start Date Expected End Date End Date [facility] 3 05/07/21 05/26/21 -- Goal Details: Patient will complete LE dressing with MOD I using compensatory strategies one time Goal Start Date Expected End Date End Date [facility] 5 05/07/21 05/26/21 -- Goal Details: Patient will complete chest mobilization exercises with moderate verbal cues one timeto increase tolerance for ADLs Goal Start Date Expected End Date End Date [facility] 6 05/08/21 05/26/21 -- Goal Details: Patient will adhere to sternal precautions during ADLS with minimal verbal cues one time Goal Start Date Expected End Date End Date [facility] 7 05/15/21 05/26/21 -- Goal Details: Patient will complete UE dress with set up x1 Goal Start Date Expected End Date End Date [facility] 8 05/15/21 05/26/21 -- Goal Details: Patient will complete transfers to bed/toilet/chair with SBA one time using least restrictive device Reviewed By Devonte Ward RN 05/17/21 0047 Devonte Ward RN 05/11/21 0408 Devonte Ward RN 05/10/21 0257 If this is the last note, consider this the discharge summary Rich Haynes OT 05/19/21 DESIGN ENGINEER * Angie Davies, ABIOLA - 05/19/2021 1:35 AM CST Spoke with RN Deandre re: Patient desaturations. His oximiter has been reading in the 80s throughout the evening. [employer] Elena wanted to try patient on BiPap to resolve issue. ?? When I went in the room, pulse ox was not in place. Placed probe on ear; patient saturating 96% with good waveform. ?? BiPap is in the room in case we need it, but it is my belief that he is simply circulating poorly after his surgery. Discussed with BUT[employer]ER [employer] MAKER and RN and they are amenable to this. ?? Will continue to monitor. DESIGN ENGINEER * Yves Weinberg MD - 05/18/2021 8:46 PM CST Nephrology Progress Note [facility] SUBJECTIVE 05/19 Cr 1.6 Na 130. [...] 95/60 Pulse: 93 93 90 92 Resp: Temp: TempSrc: SpO2: Weight: Height: Intake/Output [...] 1059 ? ? al & mag hydroxide usmjerofzaa-eezgwvmpqwrkugf-xhveiloji-nystatin (MAGIC MOUTHWASH) suspension 1-1-1-1, 20 mL, swish [...] Q6H, Rhina Granados MD, 15 mg at 11/29/976102 ??? norepinephrine in 0.9% sodium chloride (LEVOPHED) 8,000 mcg/250 mL (32 mcg/mL) infusion (premix), 0-2 mcg/kg/min, intravenous, Titrated, Rhina Granados MD, Stopped at 05/18/215 ??? ondansetron (ZOFRAN) injection 4 mg, 4 [...] tablet 40 mEq, 40 mEq, oral, BID, Moerno Whiting MD, 40 mEq at 05/18/212005 ??? [...] Aortic atherosclerosis. No failure. The right IJ Guadalupita-Radha catheter has been retracted with its tip [...] with left pleural fluid decreasing. No pneumothorax. Guadalupita-Radha catheter remainsin place Impression: Decreasing failure, atelectasis [...] with left pleural fluid decreasing. No pneumothorax. Guadalupita-Radha catheter remains in place Impression: Decreasing failure, [...] atelectasis with left pleural fluid. No pneumothorax. Guadalupita-Radha catheter remains in place Impression: Decreasing failure. No pneumothorax. Electronically signed by: Deacon Cummings M.D. XR Chest 1 View - Portable - in AM Result Date: 05/07/2021 Narrative: EXAMINATION: XR CHEST 1 VIEW DATE: 05/07/2021 3:55 AM HISTORY: 60-year-old man follow-upcardiac surgery FINDINGS:Compared with study of the previous day, postsurgical changes in the heartand mediastinum with cardiomegaly are stable. Guadalupita-Radha catheter remains in place. Left thoracostomy tube [...] Interval placement of endotracheal tube, nasogastric tube, Guadalupita-Radha catheter, left thoracostomy tube and mediastinal drain [...] Echo (TTE) Limited Result Date: 05/07/2021 Narrative: [address], [place] [address] Limited Echocardiogram Report Patient Name: DEEPAK ALVARADO : 1960 StudyDate: 05/07/2021 12:16:52 PM Gender: M Tech: Location: [id number] Ref.Provider: RHINA GRANADOS Height(Cm): 175 BSA: 2.1 [...] tamponade. Electronically Signed By: Gianni Francois MD, [facility] :54:[address] RO[address] DESIGN ENGINEER Transthoracic Echo Complete W Doppler/CF Result Date: 05/02/2021 Narrative: [place] [address] Echocardiogram Report Patient Name: DEEPAK ALVARADO W : 1960 Study Date: 05/02/2021 8:50:02 AM Gender: M Tech: SR Location: [id number] Ref Provider: NALINI CLAYTONHeight(Cm): 175 BSA: 2.11 [...] valve. Electronically Signed By: Rylee Brito DO, [facility], VILMA, FAISAL 2021-05-02 14:07:25 ROAD DESIGN ENGINEER CC: CC: CC: ASSESSMENT/PLAN Hyponatremia from SIADH [...] -monitor ?? I can be reached at [phone] with any concerns. Thank you Rhina Granados MD for the consult. Yves Weinberg MD [employer] [phone] DESIGN ENGINEER * Elena Kelly NP - 05/18/2021 7:00 [...] on 04/29. He was taken to the lab support technician on 04/30 where they found in-stent thrombosis [...] the ICU. Hospital Course 04/29 Cystoscopy at [facility] 04/30 STEMI, lab support technician -> instent thrombosis, angioplasty, IABP, transfer to [facility] 05/04/21: Increased blood clot from osorio [...] acetaminophen ? ? al & mag hydroxide asyltvqlrbh-ltiwrlubtwsnhux-ggkyojbpb-nystatin ??? albuterol ??? dextrose OR dextrose ??? [...] [0 mmHg-22 mmHg] 10 mmHg I/O: Date 05/18/21699 - 05/19/2165805/19/21699 - 05/20/21658 Shift [id number] 24 Hour Total 1703-3797 4543-6884 24 Hour Total INTAKE P.O. 180 360 [...] been reviewed with attending, MD Sushila Kelly, AGACNP- [phone], IRA[place] 1 Critical Care Medicine [facility] Cosigned by Jose Conti MD at 05/19/2021 6:[address] DESIGN ENGINEER DESIGN ENGINEER DESIGN ENGINEER * Laly Lopes MD - 05/18/2021 2:19 PM CST Cardiothoracic Surgery Progress Note Deepak Giovany Alvarado 1960 Hospital DAY#17 10 Days Post-Op s/p: Procedures: * Coronary artery bypass grafting x4, placement of left QUINN to the LAD, saphenous vein graft to thediagonal artery and obtuse marginal in a sequential fashion, saphenous vein graft to the PDA- [facility] Subjective: Remains on lasix gtt with slight [...] I.V.:595] Out: 2295 [Urine:2295] -1350 for 24, -89950 for stay Physical Exam HENT: Mouth/Throat: Mouth: [...] to floor Laly Lopes MD Cardiothoracic Surgery [facility] Cosigned by Rhina Granados MD at 05/19/2021 10:[address] DESIGN ENGINEER DESIGN ENGINEER DESIGN ENGINEER DESIGN ENGINEER * Oscar Gonzalez MD - 05/18/2021 11:02 [...] 108 Resp: Temp: TempSrc: SpO2: Weight: Height: Wt [...] 1059 ? ? al & mag hydroxide fphhbuuhzwn-mdnfoxadmuuuedt-vbxfzbzla-nystatin (MAGIC MOUTHWASH) suspension 1-1-1-1 20 mL swish [...] Q8H Rhina Flores MD 10 mL at 05/18/21 0507 ??? tamsulosin (FLOMAX) extended release capsule 0.4 mg 0.4 mg oral Daily with dinner Elena Kelly NP 0.4 mg at 05/18/21 0246 ??? acetaminophen ? ? al & mag hydroxide xyaylrtcuvu-uhhbrehuaazpmvl-sdxcvkhpe-nystatin ??? albuterol ??? dextrose OR dextrose ??? [...] and transurethral resection of bladder tumor at [facility] -s/p ??Finnish three way catheter, urine still bloody -holding [...] MD Team Health Hospitalist 05/18/2021 11:02 AM DESIGN ENGINEER * Caleb Toth PA - 05/18/2021 10:31 AM CST Images from [...] on 04/29. He was taken to the lab support technician on 04/30 where they found in-stent thrombosis [...] acetaminophen ? ? al & mag hydroxide bvxwkrfcllf-zarecwxkgtbzech-faefluqmy-nystatin ??? albuterol ??? dextrose OR dextrose ??? [...] Internal jugular (Active) Placement Date/Time: 05/04/21 (c) 1442 Hand Hygiene Performed: Yes Orientation: Right Location: Internal jugular Description (optional): multi-lumen access catheter (MAC) Number of days: 12 Vent settings: Hemodynamic parameters for last 24 hours: CVP: [0 mmHg-22 mmHg] 10 mmHg I/O: Date 05/17/21 07 - 05/18/21 0659 05/18/21 07 - 05/19/21 0659 Shift 9521-1779 1752-3325 24 Hour Total 2019-7916 3814-4258 24 Hour Total INTAKE P.O. 6296 098 4919 180 180 I.V.(mL/kg) 450(5.7) 145(1.8) 595(7.5) IV [...] HFrEF in setting of recent CABG and AZ - Diuresis - Unable to tolerate afterload [...] has been reviewed with attending, Dr. German Toth, HEIDY [phone], IRAIDA , IRAIDA 2 Critical Care Medicine [facility] in [facility] Cosigned by Alexandru Porter MD at 05/19/2021 6:[address] DESIGN ENGINEER DESIGN ENGINEER DESIGN ENGINEER * Lester Batista MD - 05/18/2021 10:13 AM CST Cardiology Inpatient Progress Note [facility] SUBJECTIVE: Back on low-dose [...] ~40% -balloon angioplasty was performed during acute AZ and subsequently patient underwent CABG x4 on 05/04/2021 - ischemic cardiomyopathy EF 35-40% on 05/09/2021 2. Hypotension blood pressure remains on the lower side - patient was on midodrine now norepinephrine has been resumed 3. Diabetes -stable on insulin per primary team 4. COPD and respiratory failure was transferred back to the ICU on 1127: -stable without any acute issues oxygen requirement [...] low BP remains unclear. Lester Batista MD, [facility], [facility], [facility] Hand Router Operator [facility] [phone] DESIGN ENGINEER * Marylu Dempsey, PT - 05/18/2021 9:06 AM CST Physical Therapy Re-EVALUATION PATIENT'S NAME:Deepak Alvarado :1960 AGE:60 y.o. TIME IN: 09:25 TIME OUT:09:57 CURRENT DIAGNOSIS AND HOSPITAL COURSE: Deepak Alvarado??is a 60 y.o.??male??who presents with retrosternal chest pain accompanied by sweating and shortness of breath. Patient underwent bladder surgery (cystoscopy, clot evacuation, and transurethral resection of bladder tumor) ??at [facility] 04/30/2021 and was discharged 05/01/2021. Patient transferred to for emergent cardiac catheterization. Patient admitted with acute anterior wall AZ, s/p cardiac cath with PTCA of the [...] wearing hospital gown, slipper socks, peripheral IV, threat monitoring analyst, central line, sternal incision with steristrips, no [...] F supported Dynamic standing balance: F- supported [facility] 6 CLICK Basic Mobility - 6 Click [...] note, please consider this the discharge summary. DESIGN ENGINEER * Abelino Leblanc MD - 05/18/2021 8:50 [...] follow Abelino Leblanc MD 05/18/2021 9:14 AM DESIGN ENGINEER * Alejandro Pratt MD - 05/18/2021 8:26 [...] hematuria as well. Workup revealed an acute AZ. Cath showed multi-vessel CAD. Had balloon pump [...] 10 mg/hr, Last Rate: 10 mg/hr (05/17/21 182) insulin regular, 0-30 Units/hr, Last Rate: 1 Units/hr (05/18/21 9558) norepinephrine, 0-2 mcg/kg/min, Last Rate: 0.01 mcg/kg/min (05/18/21 2088) PRN Meds:.??? acetaminophen ? ? al & mag hydroxide ivwiywkijcv-vceytxnvicsgtoc-tdiafqttk-nystatin ??? albuterol ??? dextrose ??? dextrose OR dextrose ??? glucagon ??? insulin regular ??? ondansetron ??? polyethylene glycol ROS Above review of system reviewed on 05/18/2021 Vitals: Vitals: 05/18/21 0515 05/18/21 0530 05/18/21 0545 05/18/21 0600 BP: 107/65 Pulse: 98 100 101 103 Resp: 22 Temp: TempSrc: SpO2: 93% 90% 95% [...] Assessment and Plan: Acute respiratory failure Acute AZ w CAD s/p CABG x 4 on 05/04/21, past hx multiple stents Cardiogenic shock Cardiomyopathy EF 40% V fib Hx COPD Anemia Infiltrates: edema v pna, tracheal aspirate w yeast Hematuria s/p cystoscopy/fulguration ?? Recs: Oxygen support, wean as able Incentive spirometry Diurese as able abx coverage for pna: Zosyn, completed Scheduled bronchodilators Increase activity as tolerated Chart reviewed DESIGN ENGINEER * Deirdre Conley OT - 05/18/2021 6:37 AM CST Occupational Therapy 05/18/21 0637 General Session Type Other (comment) (NO OT PROVIDED. NO OT CHARGE.) OT Missed Visit Reason Other (comment) (HOLD OT.) PATIENT ON HOLD FOR OCCUPATIONAL THERAPY DUE TO TRANSFER TO ICU ON 05/17/2021. WILL REQUIRE NEW ORDERS FOR OT RE-EVALUATION WHEN MEDICALLY APPROPRIATE Deirdre Conley OT 05/18/21 6:39 AM DESIGN ENGINEER * Angie Davies RRT - 05/17/2021 9:16 PM CST Spoke w DEEPIKA Carrera re: Deepak's breathing. He seems to have increasing O2 requirements, currently on 5-6L HFNC satting in upper 80s. Patient exhibits w fast shallow breathing, minimal air movement upon auscultation, despite increased WOB. Recommended stat CXR. RN currently consulting critical care team. DESIGN ENGINEER * Elena Kelly NP - 05/17/2021 7:00 PM CST Images from the original note were not included. Critical Care Medicine Daily Progress Team: Community Subjective Patient is a 60 y.o. y/o [...] on 04/29. He was taken to the lab support technician on 04/30 where they found in-stent thrombosis [...] the ICU. Hospital Course 04/29 Cystoscopy at [facility] 04/30 STEMI, lab support technician -> instent thrombosis, angioplasty, IABP, transfer to [facility] 05/04/21: Increased blood clot from osorio [...] 10 mg/hr, Last Rate: 10 mg/hr (05/17/21 182) insulin regular, 0-30 Units/hr, Last Rate: 0.5 Units/hr (05/18/21 0203) norepinephrine, 0-2 mcg/kg/min, Last Rate: 0.02 mcg/kg/min (05/18/21 011) sodium chloride 0.9%, PRN Medications: ??? acetaminophen ? ? al & mag hydroxide zhyvcaqyzzu-cdzaexczvibextd-slqwrdeim-nystatin ??? albuterol ??? dextrose ??? dextrose OR [...] [0 mmHg-2 mmHg] 2 mmHg I/O: Date 05/17/21 0700 - 05/18/21 0659 05/18/21 07 - 05/19/21 0659 Shift 1124-0930 7333-9840 24 Hour Total 1093-5243 3122-1623 24 Hour Total INTAKE P.O. 6486 618 4706 I.V.(mL/kg) 450(5.7) 95(1.2) 545(6.9) Shift Total(mL/kg) 1890(23.9) [...] - S/p CABG by MD Granados - [facility] (04/30) -> in-stent restenosis, unsuccessful angioplasty, IABP [...] been reviewed with attending, MD Sushila Kelly, [facility] [phone], IRA[place] 1 Critical Care Medicine [facility] ICU standards of care: Restraints: N/A Physical Therapy/Activity: PT Ordered/ To chair TID Access: RIJ Introducer Other: Goals of care: Full code Community AM Assessment and plan has been reviewed with attending, Dr. German Kelly [employer] [phone], IRA[place] , IRAIDA 2 Critical Care Medicine [facility] Cosigned by Jose Conti MD at 05/18/2021 6:[address] DESIGN ENGINEER DESIGN ENGINEER DESIGN ENGINEER * Sixto Fish MD - 05/17/2021 5:41 [...] Position: Pulse: 91 79 94 97 Resp: 25 14 28 Temp: TempSrc: SpO2: 94% 90% 91% 98% [...] from tomorrow am Sixto Hurtado MD 05/17/2021 DESIGN ENGINEER DESIGN ENGINEER * Yves Weinberg MD - 05/17/2021 1:46 PM CST Nephrology Progress Note [facility] SUBJECTIVE 05/17 Transferred to ICU for [...] 0940 ? ? al & mag hydroxide zrugndpqesv-ajjvcewemmuwnto-yqfdsdroq-nystatin (MAGIC MOUTHWASH) suspension 1-1-1-1, 20 mL, swish [...] bolus 1-500 mL, 1-500 mL, intravenous, PRN, Sixto Fish MD ??? dextrose oral liquid liquid 15 [...] 12.5 mg, 12.5 mg, oral, BID, Eleonora Duarte, EFREN, 12.5 mg at 05/16/21 0909 ??? midodrine (PROAMATINE) tablet 10 mg, 10 mg, oral, Q6H, Rhina Granados MD ??? norepinephrine in 0.9% sodium chloride [...] Aortic atherosclerosis. No failure. The right IJ Guadalupita-Radha catheter has been retracted with its tip [...] with left pleural fluid decreasing. No pneumothorax. Guadalupita-Radha catheter remainsin place Impression: Decreasing failure, atelectasis [...] with left pleural fluid decreasing. No pneumothorax. Guadalupita-Radha catheter remains in place Impression: Decreasing failure, [...] atelectasis with left pleural fluid. No pneumothorax. Guadalupita-Radha catheter remains in place Impression: Decreasing failure. No pneumothorax. Electronically signed by: Deacon Cummings M.D. XR Chest 1 View - Portable - in AM Result Date: 05/07/2021 Narrative: EXAMINATION: XR CHEST 1 VIEW DATE: 05/07/2021 3:55 AM HISTORY: 60-year-old man follow-upcardiac surgery FINDINGS:Compared with study of the previous day, postsurgical changes in the heartand mediastinum with cardiomegaly are stable. Guadalupita-Radha catheter remains in place. Left thoracostomy tube [...] Interval placement of endotracheal tube, nasogastric tube, Guadalupita-Radha catheter, left thoracostomy tube and mediastinal drain [...] Echo (TTE) Limited Result Date: 05/07/2021 Narrative: [place] [address] Limited Echocardiogram Report Patient Name: DEEPAK ALVARADO : 1960 StudyDate: 05/07/2021 12:16:52 PM Gender: M Tech: Location: [place] [address] Ref.Provider: RHINA GRANADOS Height(Cm): 175 BSA: 2.1 [...] tamponade. Electronically Signed By: Gianni Francois MD, [facility] :54:[address] DESIGN ENGINEER Transthoracic Echo Complete W Doppler/CF Result Date: 05/02/2021 Narrative: [place] [address] Echocardiogram Report Patient Name: DEEPAK ALVARADO W : 1960 Study Date: 05/02/2021 8:50:02 AM Gender: M Tech: Location: [place] [address] Ref Provider: NALINI CLAYTONHeight(Cm): 175 BSA: 2.11 [...] Brito, , FACJustyna, VILMA, FAISAL 2021-05-02 14:07:25 ROAD DESIGN ENGINEER CC: CC: CC: ASSESSMENT/PLAN Hyponatremia from SIADH [...] -monitor ?? I can be reached at [phone] with any concerns. Thank you Rhina Granados MD for the consult. Yves Weinberg MD [employer] [phone] DESIGN ENGINEER * Vernon Boone MD - 05/17/2021 10:55 [...] ~40% -balloon angioplasty was performed during acute AZ and subsequently patient underwent CABG x4 on [...] and Dr Whiting. Vernon Boone MD, MSN, ANP-[facility] 05/17/2021 10:55 AM DESIGN ENGINEER * Anibal Lara MD - 05/17/2021 10:45 AM CST Hospitalist Progress Note Name: Deepak lAvarado Admission Date: 05/01/2021 Today's Date: 05/17/2021 Subjective: [...] 0940 ? ? al & mag hydroxide ggdpsfgtbwp-qgcnvsbymqeaxdb-fkycggswc-nystatin (MAGIC MOUTHWASH) suspension 1-1-1-1 20 mL swish & spit Q4H PRN Tiana Spence NP 20 mL at 05/12/21 1457 ??? albuterol 2.5 mg /3 mL (0.083 %) nebulizer solution 2.5 mg 2.5 mg nebulization Q4H PRN (RT) Ralf Tomlinson MD 2.5 mg at 05/17/21 0224 ??? aspirin enteric coated tablet 81 mg 81 mg oral Daily Varsha Crowder NP 81 mg at 05/17/21936 ??? atorvastatin (LIPITOR) tablet 80 mg 80 [...] BID Rhina Granados MD 100 mg at 05/17/21936 ??? enoxaparin (LOVENOX) syringe 40 mg 40 [...] TID Sixto Perdomo MD 10 Units at 05/17/21 0941 ??? metOLazone (ZAROXOLYN) tablet 10 mg 10 [...] flush 0.5-20 mL 0.5-20 mL intra-catheter Q8H [facility] Rhina Granados MD 10 mL at 05/16/21 203 furosemide, 10 mg/hr, Last Rate: 10 mg/hr (05/17/21 0300) norepinephrine, 0-2 mcg/kg/min, Last Rate: 0.054 mcg/kg/min (05/17/21 0645) ??? acetaminophen ? ? al & mag hydroxide gzcheddoeqt-fmrkrrkowzyojva-nlemcfeoi-nystatin ??? albuterol ??? dextrose OR dextrose ??? [...] and transurethral resection of bladder tumor at [facility] -s/p 20??Finnish three way catheter, urine still bloody -holding [...] MD [facility] Hospitalist 05/17/2021 10:45 AM DESIGN ENGINEER * Laly Lopes MD - 05/17/2021 9:09 AM CST Cardiothoracic Surgery Progress Note Deepak Adair Lazarus 1960 Hospital DAY#16 10 Days Post-Op s/p: Procedures: * Coronary artery bypass grafting x4, placement of left QUINN to the LAD, saphenous vein graft to thediagonal artery and obtuse marginal in a sequential fashion, saphenous vein graft to the PDA- [facility] Subjective: Transferred to ICU overnight for fluid [...] I.V.:190] Out: 2937 [Urine:2937] -1350 for 24, -63374 for stay Physical Exam HENT: Mouth/Throat: Mouth: [...] Sternum covered with silver Saph sites steristipped CLINICAL CASE MANAGER Neurological: General: No focal deficit present. Mental [...] Dispo: CVU. Laly Lopes MD Cardiothoracic Surgery [facility] Cosigned by Moreno Whiting MD at 05/17/2021 10:[address] DESIGN ENGINEER DESIGN ENGINEER DESIGN ENGINEER * Caleb Toth PA - 05/17/2021 8:04 [...] on 04/29. He was taken to the lab support technician on 04/30 where they found in-stent thrombosis [...] acetaminophen ? ? al & mag hydroxide rxwcxwsldfq-uyxkfbjresufkal-jzeckwwpj-nystatin ??? albuterol ??? dextrose OR dextrose ??? [...] 0659 05/17/21 0700 - 05/18/21 0659 Shift 5449-2006 0385-2129 24 Hour Total 7525-1537 7604-9029 24 Hour Total INTAKE P.O. 879 24 7272 I.V.(mL/kg) 190(2.4) 190(2.4) Shift Total(mL/kg) 998(12.7) 280(3.5) 1278(16.2) OUTPUT Urine(mL/kg/hr) 1437(1.5) 1500(1.6) 2937(1.5) Shift Total(mL/kg) 1437(18.3) 1500(19) 2937(37.2) [facility]430 -1560 -8444 Weight (kg) 78.7 79 79 79 79 [...] HFrEF in setting of recent CABG and AZ - Diuresis - Unable to tolerate afterload [...] has been reviewed with attending, HEIDY Colon [phone], IRAIDA , IRAIDA 2 Critical Care Medicine [facility] Cosigned by Alexandru Porter MD at 05/17/2021 6:[address] DESIGN ENGINEER DESIGN ENGINEER DESIGN ENGINEER * Alejandro Pratt MD - 05/17/2021 6:13 [...] hematuria as well. Workup revealed an acute AZ. Cath showed multi-vessel CAD. Had balloon pump [...] Meds:.acetaminophen ? ? al & mag hydroxide hhhxztftkqe-aahnlfrmqgjbiqm-qrubrprhx-nystatin ??? albuterol ??? dextrose OR dextrose ??? [...] Review: Labs: Recent Labs Lab Units 05/17/21 03305/16/21 0542 05/15/21 0532 WBC K/cumm 8.7 6.2 [...] Assessment and Plan: Acute respiratory failure Acute AZ w CAD s/p CABG x 4 on 05/04/21, past hx multiple stents Cardiogenic shock Cardiomyopathy EF 40% V fib Hx COPD Anemia Infiltrates: edema v pna, tracheal aspirate w yeast Hematuria s/p cystoscopy/fulguration ?? Recs: Oxygen support Incentive spirometry Diurese as able abx coverage for pna: d 8 Zosyn Scheduled bronchodilators Increase activity Chart reviewed DESIGN ENGINEER * Ailyn Hsu RRT - 05/17/2021 2:55 AM CST This was the 2nd Rapid Response for this patient. The patient was not oxygenating well was placed on non-rebreather mask on 15lpm and was still not doing well with oxygenation. The patient was transferred to the ICU for further evaluation. All safety protocols were followed during the rapid. DESIGN ENGINEER * Sixto Fish MD - 05/16/2021 1:20 [...] Lying Pulse: 97 93 99 98 Resp: Temp: 36.6 ??C (97.9 ??F) 37.1 ??C [...] continue to follow Sixto Hurtado MD 05/16/2021 DESIGN ENGINEER * Anibal Lara MD - 05/16/2021 12:49 [...] 1816 ? ? al & mag hydroxide ldayzmrxqzr-kiwchvzxhdbvmos-bfpodbdrw-nystatin (MAGIC MOUTHWASH) suspension 1-1-1-1 20 mL swish & spit Q4H PRN Tiana Spence NP 20 mL at 05/12/21 1457 ??? albuterol 2.5 mg /3 mL (0.083 %) nebulizer solution 2.5 mg 2.5 mg nebulization Q4H PRN (RT) Ralf Tomlinson MD ??? aspirin enteric coated tablet 81 mg 81 mg oral Daily Varsha Crowder NP 81 mg at 05/16/21 0909 ??? atorvastatin (LIPITOR) tablet 80 mg 80 mg oral Nightly Rhina Granados MD 80 mg at 05/14/21 2208 ??? dextrose oral liquid liquid 15 g [...] mg 600 mg oral BID Tiana Spence BUTCHER OR SMALLGOODS MAKER 600 mg at 05/16/21 0909 ??? haloperidol [...] chloride 0.9% 100 mL IVPB 3.375 g bgzwqnhlgkaD8W LEAH Eleonora Duarte NP 200 mL/hr at [...] tablet 50 mg 50 mg oral Nightly [place] mareskevin JuneEFREN 50 mg at 224 ??? sodium chloride 0.9% flush 0.5-20 mL 0.5-20 mL intra-catheter Q8H [facility] Rhina Granados MD 10 mL at 05/16/21 0535 ??? acetaminophen ? ? al & mag hydroxide trnihpyoqhj-zaigkzpekpjocmc-lktaswqfq-nystatin ??? albuterol ??? dextrose OR dextrose ??? [...] and transurethral resection of bladder tumor at [facility] -s/p ??Finnish three way catheter, urine still bloody -holding [...] MD [facility] Hospitalist 05/16/2021 12:49 PM DESIGN ENGINEER * Alejandro Pratt MD - 05/16/2021 11:20 [...] hematuria as well. Workup revealed an acute AZ. Cath showed multi-vessel CAD. Had balloon pump [...] acetaminophen ? ? al & mag hydroxide oyqqglfcjvs-eqlixfdqvqchypu-mjmcpccbf-nystatin ??? albuterol ??? dextrose OR dextrose ??? [...] Assessment and Plan: Acute respiratory failure Acute AZ w CAD s/p CABG x 4 on 05/04/21, past hx multiple stents Cardiogenic shock Cardiomyopathy EF 40% V fib Hx COPD Anemia Infiltrates: edema v pna, tracheal aspirate w yeast Hematuria s/p cystoscopy/fulguration ?? Recs: Oxygen as required. Wean as tolerated Incentive spirometry abx coverage for pna: d 7 Zosyn Scheduled bronchodilators Increase activity Chart reviewed DESIGN ENGINEER * Tereza Mccullough NP - 05/16/2021 9:23 AM CST Nephrology Progress Note [facility] SUBJECTIVE 05/16 Creatinine stable and sodium [...] PRN, Eleonora Duarte, EFREN, 650 mg at 05/15/21 1816 ? ? al & mag hydroxide xiryccowday-rmquwnhmptarjzh-hkhlstiti-nystatin (MAGIC MOUTHWASH) suspension 1-1-1-1, 20 mL, swish & spit, Q4H PRN, Tiana Spence NP, 20 mL at 05/12/21 1457 ??? albuterol 2.5 mg /3 mL (0.083 %) nebulizer solution 2.5 mg, 2.5 mg, nebulization, Q4H PRN (RT),Ralf Tomlinson MD ??? aspirin enteric coated tablet 81 mg, 81 mg, oral, Daily, Varsha Crowder NP, 81 mg at 05/16/21 0909 ??? atorvastatin [...] Nightly, Sixto Fish MD, 24 Units at 05/15/212237 ??? insulin lispro (HumaLOG, ADMELOG) 100 unit/mL injection 0-10 Units, 0-10 Units, subcutaneous, TID with meals, Anibal Lara MD, 4 Units at 05/15/21 184 ??? insulin lispro (HumaLOG, ADMELOG) 100 unit/mL injection 0-5 Units, 0-5 Units, subcutaneous, Nightly, Anibal Lara MD, 1 Units at 05/15/212141 ??? insulin lispro [...] flush 0.5-20 mL, 0.5-20 mL, intra-catheter, Q8H [facility], Rhina Granados MD, 10 mL at 05/16/21 0535 Lab/Radiology/Diagnostic [...] Aortic atherosclerosis. No failure. The right IJ Guadalupita-Radha catheter has been retracted with its tip [...] with left pleural fluid decreasing. No pneumothorax. Guadalupita-Radha catheter remainsin place Impression: Decreasing failure, atelectasis [...] with left pleural fluid decreasing. No pneumothorax. Guadalupita-Radha catheter remains in place Impression: Decreasing failure, [...] atelectasis with left pleural fluid. No pneumothorax. Guadalupita-Radha catheter remains in place Impression: Decreasing failure. No pneumothorax. Electronically signed by: Deacon Cummings M.D. XR Chest 1 View - Portable - in AM Result Date: 05/07/2021 Narrative: EXAMINATION: XR CHEST 1 VIEW DATE: 05/07/2021 3:55 AM HISTORY: 60-year-old man follow-upcardiac surgery FINDINGS:Compared with study of the previous day, postsurgical changes in the heartand mediastinum with cardiomegaly are stable. Guadalupita-Radha catheter remains in place. Left thoracostomy tube [...] Interval placement of endotracheal tube, nasogastric tube, Guadalupita-Radha catheter, left thoracostomy tube and mediastinal drain [...] Echo (TTE) Limited Result Date: 05/07/2021 Narrative: [place] [address] Limited Echocardiogram Report Patient Name: DEEPAK ALVARADO : 1960 StudyDate: 05/07/2021 12:16:52 PM Gender: M Tech: Location: [id number] Ref.Provider: RHINA GRANADOS Height(Cm): 175 BSA: 2.1 [...] tamponade. Electronically Signed By: Gianni Francois MD, [facility] :54:[address] RO[address] DESIGN ENGINEER Transthoracic Echo Complete W Doppler/CF Result Date: 05/02/2021 Narrative: [place] [address] Echocardiogram Report Patient Name: DEEPAK ALVARADO W : 1960 Study Date: 05/02/2021 8:50:02 AM Gender: M Tech: Location: [place] [address] Ref Provider: NALINI CLAYTONHeight(Cm): 175 BSA: 2.11 [...] Brito, , FACJustyna, VILMA, FAISAL 2021-05-02 14:07:25 ROAD DESIGN ENGINEER CC: CC: CC: ASSESSMENT/PLAN Hyponatremia from SIADH [...] -monitor ?? I can be reached at [phone] with any concerns. Thank you Rhina Granados MD for the consult. Tereza Mccullough NP [employer] [phone] Cosigned by Ashley Fox MD at 05/22/2021 11:[address] DESIGN ENGINEER DESIGN ENGINEER DESIGN ENGINEER * Laly Lopes MD - 05/16/2021 9:09 AM CST Cardiothoracic Surgery Progress Note Deepak Giovany Alvarado 1960 Hospital DAY#15 10 Days Post-Op [...] [P.O.:837] Out: 1275 [Urine:1275] -1350 for 24, -72602 for stay Physical Exam HENT: Mouth/Throat: Mouth: [...] Sternum covered with silver Saph sites steristipped CLINICAL CASE MANAGER Neurological: General: No focal deficit present. Mental [...] returning home. Laly Lopes MD Cardiothoracic Surgery [facility] Cosigned by Moreno Whiting MD at 05/17/2021 10:[address] DESIGN ENGINEER DESIGN ENGINEER DESIGN ENGINEER * Cristina Serrano NP - 05/16/2021 7:38 AM CST Daily Progress SUBJECTIVE: Mr. Alvarado is resting quietly. No new complaints, but RN from shift commander states that he has been retaining urine, [...] chloride 0.9% 100 mL IVPB 3.375 g [id number] LEAH ??? polyethylene glycol (MIRALAX) packet 17 [...] ~40% -balloon angioplasty was performed during acute AZ and subsequently patient underwent CABG x4 on [...] K >/= 4.0 Cristina Serrano NP, MSN, ANP-[facility] 05/16/2021 7:38 AM DESIGN ENGINEER DESIGN ENGINEER * Yves Weinberg MD - 05/15/2021 4:36 PM CST Nephrology Progress Note [facility] SUBJECTIVE 05/15/21 Doing fair. Osorio out. [...] PRN, Eleonora Duarte, EFREN, 650 mg at 05/14/21 2231 ? ? al & mag hydroxide nbdmbdgpdxc-jvgcgsxneynyhjr-qhcesykhe-nystatin (MAGIC MOUTHWASH) suspension 1-1-1-1, 20 mL, swish [...] 40 mg, 40 mg, intravenous, BID DIURETIC, Marianne, Laly Franco MD, 40 mg at 05/15/21 1545 ??? [...] 100 mL IVPB, 3.375 g, intravenous, Q6H [facility], Eleonora Duarte NP, Last Rate: 200 mL/hr [...] LEAH, Rhina Granados MD, 10 mL at 05/15/21 [...] Aortic atherosclerosis. No failure. The right IJ Guadalupita-Radha catheter has been retracted with its tip [...] with left pleural fluid decreasing. No pneumothorax. Guadalupita-Radha catheter remainsin place Impression: Decreasing failure, atelectasis [...] with left pleural fluid decreasing. No pneumothorax. Guadalupita-Radha catheter remains in place Impression: Decreasing failure, [...] atelectasis with left pleural fluid. No pneumothorax. Guadalupita-Radha catheter remains in place Impression: Decreasing failure. No pneumothorax. Electronically signed by: Deacon Cummings M.D. XR Chest 1 View - Portable - in AM Result Date: 05/07/2021 Narrative: EXAMINATION: XR CHEST 1 VIEW DATE: 05/07/2021 3:55 AM HISTORY: 60-year-old man follow-upcardiac surgery FINDINGS:Compared with study of the previous day, postsurgical changes in the heartand mediastinum with cardiomegaly are stable. Guadalupita-Radha catheter remains in place. Left thoracostomy tube [...] Interval placement of endotracheal tube, nasogastric tube, Guadalupita-Radha catheter, left thoracostomy tube and mediastinal drain [...] Echo (TTE) Limited Result Date: 05/07/2021 Narrative: [place] [id number] Limited Echocardiogram Report Patient Name: DEEPAK ALVARADO : 1960 StudyDate: 05/07/2021 12:16:52 PM Gender: M Tech: Location: [place] [address] Ref.Provider: RHINA GRANADOS Height(Cm): 175 BSA: 2.1 [...] tamponade. Electronically Signed By: Gianni Francois MD, [facility] 2021-05-07 12:54:09 ROAD DESIGN ENGINEER Transthoracic Echo Complete W Doppler/CF Result Date: 05/02/2021 Narrative: [place] [address] Echocardiogram Report Patient Name: DEEPAK ALVARADO W : 1960 Study Date: 05/02/2021 8:50:02 AM Gender: M Tech: Location: [id number] Ref Provider: NALINI CLAYTONHeight(Cm): 175 BSA: 2.11 [...] Electronically Signed By: Rylee Brito DO, GRETCHEN, FAISAL ESPARZA 2021-05-02 14:07:25 ROAD DESIGN ENGINEER CC: CC: CC: ASSESSMENT/PLAN Hyponatremia from SIADH [...] -monitor ?? I can be reached at [phone] with any concerns. Thank you Rhina Granados MD for the consult. Yves Weinberg MD [employer] [phone] DESIGN ENGINEER * Ellen Shore PTA - 05/15/2021 4:10 PM CST Physical Therapy Unavailable, with OTR for OT session. Ellen Shore PTA 05/15/21 4:11 PM DESIGN ENGINEER * Abril Lala, OT - 05/15/2021 3:43 PM CST Occupational Therapy NOTE / SESSION TYPE: Weekly Progress / Interim Patient Name: Deepak Alvarado Date of : 1960 Age / Sex: 60 y.o. / male Room: [place] [address] Admit Date: 05/01/2021 Date of Service: 05/15/21 [...] Yes Completed patient handoff and notified MANAGER RESEARCH DEVELOPMENT / RN, name: Charo, of patient's location [...] after me and remember it. Padilla Huddleston [address] [place] [address]. Number of trialto [id number] 3 1 3 0 3. About what [...] I asked you to remember. Padilla Huddleston [address] [place] [address]. [] Padilla [] [place] []42 [][facility] [][place] 5 (b) 2 10 A weighted error score of 9 or greater indicates a need for further assessment. Total Weighted Error Score = 23 (a) Scoring 0 = No errors, 1 = 1 error, 2 = 2 or more errors, (b) An answer of either [facility] or [facility] is acceptable. UE ROM / Strength / Coordination: (A)ROM - Right: WNL except shoulders tested to 90 degrees due to sternal prec. Strength - Right: 4/5 except shoulders not assessed (A)ROM - Left: : WNL except shoulders tested to 90 degrees due to sternal prec. Strength - Left: 4/5 except shoulders not assessed Puppy Trainer Strength (Right) Good Puppy Trainer Strength (Left): Good Right Serial Opposition: Intact [...] PLAN: OT Discharge Recommendations this date: Location: nursing home [facility] Supervision: 24 hour Follow-up therapy recommendations: Skilled OT in Long Term Facility Frequency of therapy: 3-5 times / [...] (from Occupational Therapy) Active Problems Problem: OT [facility] Start Date: 05/07/21 Goal Start Date Expected End Date End Date [facility] 3 05/07/21 05/22/21 -- Goal Details: Patient will complete LE dressing with moderate assistance and using adaptive equipment PRN one time Goal Start Date Expected End Date End Date [facility] 5 05/07/21 05/22/21 -- Goal Details: Patient will complete chest mobilization exercises with moderate verbal cues one time Goal Start Date Expected End Date End Date [facility] 6 05/07/21 05/14/21 -- Goal Details: Patient will adhere to sternal precautions during ADLS with minimal verbal cues one time Goal Start Date Expected End Date End Date [facility] 7 05/15/21 05/22/21 -- Goal Details: Patient will complete UE dress with set up x1 Goal Start Date Expected End Date End Date [facility] 8 05/15/21 05/22/21 -- Goal Details: Patient will complete transfers to bed/toilet/chair with spv with ww x1 If this is the last note, consider this the discharge summary Abril Lala OT 05/15/21 DESIGN ENGINEER * Anibal Lara MD - 05/15/2021 12:50 PM CST Hospitalist Progress Note Name: Deepak Alvarado Admission Date: 05/01/2021 Today's Date: 05/15/2021 Subjective: Pt seen and examined Clinical course: Overall pt condition has improved. Still on 4L per [place] today Objective: Vitals: 05/14/21 1918 05/14/21 2321 05/15/21 0338 05/15/21 0741 BP: 94/60 91/54 93/59 105/68 BP Location: Right arm Right arm Right arm Right arm Patient Position: Lying Lying Lying Lying Pulse: 78 83 87 93 Resp: 18 Temp: 36.4 ??C (97.6 ??F) 36.6 [...] Eleonora Duarte NP 650 mg at 05/14/21 2231 ? ? al & mag hydroxide juqcogpcgfq-hqwfcjidxrfedys-stsxxjlrp-nystatin (MAGIC MOUTHWASH) suspension 1-1-1-1 20 mL swish [...] subcutaneous NightlySixto Fish MD 24 Units at 05/14/212217 ??? insulin lispro (HumaLOG, ADMELOG) 100 unit/mL injection 0-10 Units 0-10 Units subcutaneous TID with meals Anibal Lara MD 4 Units at 05/14/21 1713 ??? insulin lispro (HumaLOG, ADMELOG) 100 unit/mL injection 0-5 Units 0-5 Units subcutaneous Nightly Anibal Lara MD 1 Units at 05/13/21 2020 ??? insulin lispro (HumaLOG, ADMELOG) 100 unit/mL injection 10 Units 10 Units subcutaneous TID withmeals Sixto Fish Hurtado, MD 10 Units at 05/14/21 1712 ??? metoprolol tartrate (LOPRESSOR) immediate release tablet [...] chloride 0.9% 100 mL IVPB 3.375 g wwniamwlffgS1S [facility] Eleonora Duarte NP 200 mL/hr at 05/15/21 0654 3.375 g at 05/15/2154 ??? polyethylene glycol (MIRALAX) packet 17 g [...] flush 0.5-20 mL 0.5-20 mL intra-catheter Q8H [facility] Rhina Granados MD 10 mL at 05/15/21 0654 ??? acetaminophen ? ? al & mag hydroxide qjcketbwkco-qlybxzzyxluledo-vwxlbdtxd-nystatin ??? albuterol ??? dextrose OR dextrose ??? [...] and transurethral resection of bladder tumor at [facility] -s/p 20??Finnish three way catheter, urine still bloody -holding [...] MD [facility]ist 05/15/2021 12:50 PM DESIGN ENGINEER * Sixto Fish MD - 05/15/2021 12:43 [...] continue to follow Sixto Hurtado MD 05/15/2021 DESIGN ENGINEER * Alejandro Pratt MD - 05/15/2021 10:52 [...] hematuria as well. Workup revealed an acute AZ. Cath showed multi-vessel CAD. Had balloon pump [...] acetaminophen ? ? al & mag hydroxide njswzabjyww-pqqibfgoiysbhlb-fphlkgwel-nystatin ??? albuterol ??? dextrose OR dextrose ??? [...] Assessment and Plan: Acute respiratory failure Acute [place] w CAD s/p CABG x 4 on 05/04/21, past hx multiple stents Cardiogenic shock Cardiomyopathy EF 40% V fib Hx COPD Anemia Infiltrates: edema v pna, tracheal aspirate w yeast Hematuria s/p cystoscopy/fulguration ?? Recs: Oxygen as required. Wean as tolerated Incentive spirometry abx coverage for pna Scheduled bronchodilators Chart reviewed DESIGN ENGINEER * Monica Morales, RD - 05/15/2021 10:22 [...] artery disease ??? Diabetes mellitus ([facility]) ??? H/O heart artery stent 2006 ??? Hypertension Hypertension ??? ST elevation (STEMI) myocardial infarction ([facility]) 05/01/2021 Medications and Lab Review: Scheduled [...] medication as directed by your doctor. Call [phone] to speak with a dietitian about any diet related concerns. Recommend to follow up with outpatient nutrition counseling, ask your doctor for a referral and call [phone] to make an appointment. Nutrition Follow-Up : 05/19/[address],LD DESIGN ENGINEER * Robinson Paris MD - 05/15/2021 10:15 AM CST Urology Progress Note Mr. Alvarado is a 60 yo man who is POD 1 from cystoscopy and fulguration of bleeding sites. He is s/p arecent TURBT by another urologist at a hospital in [place] and his post op course was complicated [...] fails the voiding trial by 3 pm. DESIGN ENGINEER * Tiana Spence NP - 05/15/2021 9:29 AM CST Daily Progress SUBJECTIVE: Mr. Alvarado is resting in bed, NAD Wet BUTCHER OR SMALLGOODS MAKER cough, encouraged IS Mild incisional discomfort. Denies [...] chloride 0.9% 100 mL IVPB 3.375 g mghkqxrbikcT3L LEAH ??? polyethylene glycol (MIRALAX) packet 17 [...] which was fulgurated and hemostasis obtained. Twenty-two Finnish [address] Osorio catheter ASSESSMENT/PLAN: 1. CAD status post CABG for STEMI -Cardiac cath on 05/01 with 40% distal LM; 100% prox LAD; 90% prox Cx; 50% prox and distal RCA -Left ventriculogram:??Moderate blanka-apical hypokinesis; echo on 05/02 with EF ~40% -balloon angioplasty was performed during acute AZ and subsequently patient underwent CABG x4 on [...] keep K >/= 4.0 Tiana Spence NP [facility] 05/15/2021 9:29 AM DESIGN ENGINEER * Laly Lopes MD - 05/15/2021 9:22 AM CST Cardiothoracic Surgery Progress Note Deepak Alvarado 1960 Hospital DAY#14 10 Days Post-Op s/p: Procedures: * Coronary artery bypass grafting x4, placement of left QUINN to the LAD, saphenous vein graft to thediagonal artery and obtuse marginal in a sequential fashion, saphenous vein graft to the PDA- [facility] Subjective: Cysto done yesterday with area of [...] I.V.:500] Out: 1175 [Urine:1175] -1350 for 24, -63512 for stay Physical Exam HENT: Mouth/Throat: Mouth: [...] Sternum covered with silver Saph sites steristipped CLINICAL CASE MANAGER Neurological: General: No focal deficit present. Mental [...] returning home. Laly Lopes MD Cardiothoracic Surgery [facility] Cosigned by Moreno Whiting MD at 05/17/2021 10:[address] DESIGN ENGINEER DESIGN ENGINEER DESIGN ENGINEER * Mirella Godwin MD - 05/14/2021 2:37 [...] by Provider] clopidogreL, 75 mg, oral, Daily [Aug] docusate sodium, 100 mg, oral, BID [Held by Provider] enoxaparin, 40 mg, subcutaneous, Daily-2100 [Aug] furosemide, 20 mg, intravenous, BID DIURETIC [Aug] guaiFENesin ER, 600 mg, oral, BID [Aug] insulin glargine, 24 Units, subcutaneous, Nightly [Aug] insulin lispro, 0-10 Units, subcutaneous, TID with meals [Aug] insulin lispro, 0-5 Units, subcutaneous, Nightly [Aug] [...] sodium chloride 0.9%, 0.5-20 mL, intra-catheter, Q8H [facility] ??? [Aug] acetaminophen ? ? [Aug] al & mag hydroxide mvyzrdgshsb-ezsogffhtvvdquv-gdvvetnqw-nystatin ??? [Aug] albuterol ??? [Aug] dextrose OR [Aug] dextrose ??? diphenhydrAMINE ??? fentaNYL ??? [Aug] glucagon ??? [Aug] haloperidol ??? meperidine ??? naloxone ??? [Aug] ondansetron ??? ondansetron Data Vitals: 05/14/21 1340 05/14/21 1345 05/14/21 1350 05/14/21 1355 BP: (!) 81/50 (!) 80/57 BP Location: Patient Position: Pulse: 82 84 81 84 Resp: 24 Temp: TempSrc: SpO2: (!) 89% (!) [...] and transurethral resection of bladder tumor at [facility] -s/p 20??Finnish three way catheter, urine still bloody -holding [...] plan Mirella Godwin MD 05/14/2021 2:37 PM DESIGN ENGINEER * Eleonora Duarte NP - 05/14/2021 10:41 AM CST Cardiothoracic Surgery Progress Note Deepak Alvarado 1960 Hospital DAY#13 10 Days Post-Op s/p: Procedures: * Coronary artery bypass grafting x4, placement of left QUINN to the LAD, saphenous vein graft to thediagonal artery and obtuse marginal in a sequential fashion, saphenous vein graft to the PDA- [facility] Subjective: Patient resting in bed on 4L [...] - Out: 1350 [Urine:1350] -1350 for 24, -45609 for stay Physical Exam HENT: Mouth/Throat: Mouth: [...] Sternum covered with silver Saph sites steristipped CLINICAL CASE MANAGER Neurological: General: No focal deficit present. Mental [...] *Awaiting BMP Eleonora Duarte NP Cardiothoracic Surgery [facility] DESIGN ENGINEER DESIGN ENGINEER * Alejandro Pratt MD - 05/14/2021 10:38 [...] hematuria as well. Workup revealed an acute AZ. Cath showed multi-vessel CAD. Had balloon pump [...] acetaminophen ? ? al & mag hydroxide cfcaooqgpvc-rdfdghtxjugarav-doxocmhlj-nystatin ??? albuterol ??? dextrose OR dextrose ??? [...] Assessment and Plan: Acute respiratory failure Acute [place] w CAD s/p CABG x 4 on 05/04/21, past hx multiple stents Cardiogenic shock Cardiomyopathy EF 40% V fib Hx COPD Anemia Infiltrates: edema v pna, tracheal aspirate w yeast hematuria ?? Recs: Oxygen as required. Wean as tolerated Incentive spirometry abx coverage for pna Scheduled bronchodilators Chart reviewed DESIGN ENGINEER * Braulio Ortega MD - 05/14/2021 9:53 [...] 0940 ? ? al & mag hydroxide fwejdtlcoea-aiwifgghxpdjflk-qylrzzdsq-nystatin (MAGIC MOUTHWASH) suspension 1-1-1-1 20 mL swish & spit Q4H PRN Tiana Spence NP 20 mL at 05/12/21 1457 ??? albuterol 2.5 mg /3 mL (0.083 %) nebulizer solution 2.5 mg 2.5 mg nebulization Q4H PRN (RT) Ralf Tomlinson MD ??? aspirin enteric coated tablet 81 mg 81 mg oral Daily Varsha Crowder NP 81 mg at 05/14/21 0909 ??? atorvastatin (LIPITOR) tablet 80 mg 80 [...] MD 40 mg at 05/10/21 2141 ??? furosemide (LASIX) 10 mg/mL injection 20 mg 20 mg intravenous BID DIURETIC Yves Weinberg MD 20 mg at 05/14/21 09 ??? glucagon injection 1 mg 1 mg intramuscular Q30 Min PRN Anibal Lara MD ??? guaiFENesin ER (MUCINEX) extended release tablet 600 mg 600 mg oral BID Tiana Spence NP 600 mg at 05/14/21 0909 ??? haloperidol (HALDOL) injection 2 mg 2 mg intramuscular Q8H PRN Varsha Crowder NP ??? insulin glargine (LANTUS, SEMGLEE) 100 unit/mL injection 24 Units 24 Units subcutaneous NightlySixto Fish MD 24 Units at 05/13/212018 ??? insulin lispro (HumaLOG, ADMELOG) 100 unit/mL [...] Daily Rhina Granados MD40 mg at 05/14/21 09 ??? piperacillin-tazobactam (ZOSYN) 3.375 g in sodium chloride 0.9% 100 mL IVPB 3.375 g vfreoxsnrikP7H [facility] Eleonora Duarte NP 200 mL/hr at 05/14/21910 3.375 g at 05/14/21 09 ??? polyethylene glycol (MIRALAX) packet 17 g 17 g oral BID Rhina Granados MD 17 g at 05/14/21 0912 ??? potassium chloride ER (KLOR-CON) extended release tablet 20 mEq 20 mEq oral BID Eleonora Duarte NP 20 mEq at 05/14/21 09 ??? QUEtiapine (SEROquel) tablet 25 mg 25 mg oral Daily Vel, Varsha Sahylee, BUTCHER OR [employer] MAKER 25 mg at 05/14/21 0909 ??? QUEtiapine (SEROquel) tablet 50 mg 50 mg oral Nightly Varsha Crowder BUTCHER OR [employer]GO[employer] MAKER 50 mg at 014 ??? sodium chloride 0.9% flush 0.5-20 mL 0.5-20 mL intra-catheter Q8H [facility] Rhina Granados MD 10 mL at 05/14/21 0645 [facility] [id number] [place] [id number] ?? CT Abdomen Pelvis WO Contrast Status: [...] History of ?bladder tumor, had tumor resection [place] and clot evacuation Earlier this month. ?? Patient has evidence of clots in the bladder. Hb stable. Off bloodf thinners currently. For cysto and clot evacuation and fulguration. ?? Risks and complications including bleeding, blood transfusion, bladder perforation, uti, sepsis,catheter problems explained.Patient wants to proceed. Braulio Ortega MD Urology Division [facility] Office [phone] 05/14/2021 9:54 AM DESIGN ENGINEER * Tereza Mccullough BUTCHER OR [employer] MAKER - 05/14/2021 9:25 AM CST Nephrology Progress Note [facility] SUBJECTIVE 05/14 Sodium 127 yesterday and [...] 05/13/212021 ? ? al & mag hydroxide googojknnaq-aaroqucrsforrhb-sybcfvhuh-nystatin (MAGIC MOUTHWASH) suspension 1-1-1-1, 20 mL, swish [...] Granados MD, 40 mg at 05/10/212140 ??? furosemide (LASIX) 10 mg/mL injection 20 [...] Anibal Lara MD, 2 Units at 05/13/21 172 ??? insulin [...] Daily, Lester Batista MD, 12.5 mg at 05/14/21908 ??? ondansetron (ZOFRAN) injection 4 mg, 4 mg, intravenous, Q6H PRN, Rhina Granados MD ??? pantoprazole DR (PROTONIX) extended release tablet 40 mg, 40 mg, oral, Daily, Rhina Granados MD, 40 mg at 05/14/2110 ??? piperacillin-tazobactam (ZOSYN) 3.375 g in sodium chloride 0.9% 100 mL IVPB, 3.375 g, intravenous, Q6H LE[facility], Eleonora Duarte NP, Last Rate: 200 mL/hr at 05/14/21910, 3.375 g at 05/14/21910 ??? polyethylene glycol (MIRALAX) packet 17 g, 17 g, oral, BID, Rhina Granados MD, 17 g at 05/14/21911 ??? potassium chloride ER (KLOR-CON) extended release tablet 20 mEq, 20 mEq, oral, BID, Eleonora Duarte NP, 20 mEq at 05/14/21908 ??? QUEtiapine (SEROquel) tablet 25 mg, 25 mg, oral, Daily, Varsha Crowder NP, 25 mg at 05/14/21908 ??? QUEtiapine (SEROquel) tablet 50 mg, 50 mg, oral, Nightly, Varsha Crowder NP, 50 mg at 05/13/212013 ??? sodium chloride 0.9% flush 0.5-20 mL, 0.5-20 mL, intra-catheter, Q8H Darwin LYNN Nabil A., MD, 10 mL at 05/14/21 0645 Lab/Radiology/Diagnostic [...] Aortic atherosclerosis. No failure. The right IJ Guadalupita-Radha catheter has been retracted with its tip [...] with left pleural fluid decreasing. No pneumothorax. Guadalupita-Radha catheter remainsin place Impression: Decreasing failure, atelectasis [...] with left pleural fluid decreasing. No pneumothorax. Guadalupita-Radha catheter remains in place Impression: Decreasing failure, [...] atelectasis with left pleural fluid. No pneumothorax. Guadalupita-Radha catheter remains in place Impression: Decreasing failure. No pneumothorax. Electronically signed by: Deacon Cummings M.D. XR Chest 1 View - Portable - in AM Result Date: 05/07/2021 Narrative: EXAMINATION: XR CHEST 1 VIEW DATE: 05/07/2021 3:55 AM HISTORY: 60-year-old man follow-upcardiac surgery FINDINGS:Compared with study of the previous day, postsurgical changes in the heartand mediastinum with cardiomegaly are stable. Guadalupita-Radha catheter remains in place. Left thoracostomy tube [...] Interval placement of endotracheal tube, nasogastric tube, Guadalupita-Radha catheter, left thoracostomy tube and mediastinal drain [...] Echo (TTE) Limited Result Date: 05/07/2021 Narrative: [place] [id number] Limited Echocardiogram Report Patient Name: DEEPAK ALVARADO : 1960 StudyDate: 05/07/2021 12:16:52 PM Gender: M Tech: Location: [place] [address] Ref.Provider: RHINA GRANADOS Height(Cm): 175 BSA: 2.1 [...] tamponade. Electronically Signed By: Gianni Francois MD, [facility] 2021-05-07 12:54:09 ROAD DESIGN ENGINEER Transthoracic Echo Complete W Doppler/CF Result Date: 05/02/2021 Narrative: [address] [address] Echocardiogram Report Patient Name: DEEPAK ALVARADO W : 1960 Study Date: 05/02/2021 8:50:02 AM Gender: M Tech: Location: [id number] Ref Provider: NALINI CLAYTONHeight(Cm): 175 BSA: 2.11 [...] Brito DO, FACJustyna, VILMA, FAISAL 2021-05-02 14:07:25 ROAD DESIGN ENGINEER CC: CC: CC: ASSESSMENT/PLAN Hyponatremia from SIADH [...] -monitor ?? I can be reached at [phone] with any concerns. Thank you Rhian Granados MD for the consult. Tereza Mccullough NP [employer] [phone] Cosigned by Ashley Fox MD at 05/22/2021 11:[address] DESIGN ENGINEER DESIGN ENGINEER DESIGN ENGINEER * Cristina Serrano NP - 05/14/2021 6:55 [...] chloride 0.9% 100 mL IVPB 3.375 g [id number] LEAH ??? polyethylene glycol (MIRALAX) packet 17 g 17 g oral BID ??? potassium chloride ER (KLOR-CON) extended release tablet 20 mEq 20 mEq oral BID ??? QUEtiapine (SEROquel) tablet 25 mg 25 mg oral Daily ??? QUEtiapine (SEROquel) tablet 50 mg 50 mg oral Nightly ??? sodium chloride 0.9% flush 0.5-20 mL 0.5-20 mL intra-catheter Q8H LEAH LABS: Recent Labs Lab Units 05/13/21 0612 [...] ~40% -balloon angioplasty was performed during acute AZ and subsequently patient underwent CABG x4 on [...] today -osorio intact Cristina Serrano NP, MSN, ANP-[facility] 05/14/2021 6:55 AM DESIGN ENGINEER * Yves Weinberg MD - 05/13/2021 9:18 PM CST Nephrology Progress Note [facility] SUBJECTIVE Doing fair. Some flank pain [...] 05/13/212021 ? ? al & mag hydroxide tcuffjovsdo-ijwhxoileshhdkf-axcymwigq-nystatin (MAGIC MOUTHWASH) suspension 1-1-1-1, 20 mL, swish [...] Rhina Granados MD, 40 mg at 05/10/21 214 ??? glucagon injection 1 mg, 1 mg, intramuscular, Q30 Min PRN, Anibal Lara MD ??? guaiFENesin ER (MUCINEX) extended release tablet 600 mg, 600 mg, oral, BID, Tiana Spence NP, 600 mg at 05/13/21 0936 ??? haloperidol (HALDOL) injection 2 mg, 2 mg, intramuscular, Q8H PRN, Varsha Crowder NP ??? insulin glargine (LANTUS, SEMGLEE) 100 unit/mL injection 24 Units, 24 Units, subcutaneous, Nightly, Bryant Hurtado, Sixto Hurtado MD, 24 Units at 05/13/21 2019 ??? [...] Duarte NP, Last Rate: 200 mL/hr at 05/13/21 1724, 3.375 g at 05/13/21 172 ??? polyethylene glycol (MIRALAX) packet 17 g, [...] LEAH, Rhina Granados MD, 10 mL at 05/13/212027 [...] Aortic atherosclerosis. No failure. The right IJ Guadalupita-Radha catheter has been retracted with its tip [...] with left pleural fluid decreasing. No pneumothorax. Guadalupita-Radha catheter remainsin place Impression: Decreasing failure, atelectasis [...] with left pleural fluid decreasing. No pneumothorax. Guadalupita-Radha catheter remains in place Impression: Decreasing failure, [...] atelectasis with left pleural fluid. No pneumothorax. Guadalupita-Radha catheter remains in place Impression: Decreasing failure. No pneumothorax. Electronically signed by: Deacon Cummings M.D. XR Chest 1 View - Portable - in AM Result Date: 05/07/2021 Narrative: EXAMINATION: XR CHEST 1 VIEW DATE: 05/07/2021 3:55 AM HISTORY: 60-year-old man follow-upcardiac surgery FINDINGS:Compared with study of the previous day, postsurgical changes in the heartand mediastinum with cardiomegaly are stable. Guadalupita-Radha catheter remains in place. Left thoracostomy tube [...] Interval placement of endotracheal tube, nasogastric tube, Guadalupita-Radha catheter, left thoracostomy tube and mediastinal drain [...] Echo (TTE) Limited Result Date: 05/07/2021 Narrative: [place] [id number] Limited Echocardiogram Report Patient Name: DEEPAK ALVARADO : 1960 StudyDate: 05/07/2021 12:16:52 PM Gender: M Tech: Location: [place] [address] Ref.Provider: RHINA GRANADOS Height(Cm): 175 BSA: 2.1 [...] tamponade. Electronically Signed By: Gianni Francois MD, [facility] :54:09 ROAD DESIGN ENGINEER Transthoracic Echo Complete W Doppler/CF Result Date: 05/02/2021 Narrative: [address] [address] Echocardiogram Report Patient Name: DEEPAK ALVARADO W : 1960 Study Date: 05/02/2021 8:50:02 AM Gender: M Tech: SR Location: [id number] Ref Provider: NALINI CLAYTONHeight(Cm): 175 BSA: 2.11 [...] Brito DO, FACJustyna, VILMA, FAISAL 2021-05-02 14:07:25 ROAD DESIGN ENGINEER CC: CC: CC: ASSESSMENT/PLAN Hyponatremia from SIADH [...] -monitor ?? I can be reached at [phone] with any concerns. Thank you Rhina Granados MD for the consult. Yves Weinberg MD [employer] [phone] DESIGN ENGINEER * Anibal Lara MD - 05/13/2021 1:43 [...] 2223 ? ? al & mag hydroxide utekhxvqzpo-sbnvvnvpmvbdzbg-iygcdulps-nystatin (MAGIC MOUTHWASH) suspension 1-1-1-1 20 mL swish [...] Nightly Anibal Lara MD 20 Units at 05/12/212221 ??? insulin lispro (HumaLOG, ADMELOG) 100 unit/mL injection 0-10 Units 0-10 Units subcutaneous TID with meals Anibal Lara MD 4 Units at 05/13/21 0938 ??? insulin lispro (HumaLOG, ADMELOG) 100 unit/mL injection 0-5 Units 0-5 Units subcutaneous Nightly Anibal Lara MD 1 Units at 05/12/210 ??? insulin lispro (HumaLOG, ADMELOG) 100 unit/mL injection 7 Units 0.083 Units/kg subcutaneous TIDwith meals Anibal Lara MD 7 Units at 05/12/21 1744 ??? metoprolol XL (TOPROL-XL) extended release tablet 12.5 mg 12.5 mg oral Daily Lester Batista MD12.5 mg at 05/13/21 0937 ??? ondansetron (ZOFRAN) injection 4 mg 4 mg intravenous Q6H PRN Rhina Granados MD ??? pantoprazole DR (PROTONIX) extended release tablet 40 mg 40 mg oral Daily Rhina Granados MD40 mg at 05/13/2136 ??? piperacillin-tazobactam (ZOSYN) 3.375 g in sodium chloride 0.9% 100 mL IVPB 3.375 g [id number] LEAH Eleonora Duarte NP 200 mL/hr at 05/13/21 06 3.375 g at 05/13/21 0607 ??? polyethylene glycol (MIRALAX) packet 17 g 17 g oral BID Rhina Granados MD 17 g at ??? potassium chloride ER (KLOR-CON) extended release tablet 20 mEq 20 mEq oral BID Eleonora Duarte NP 20 mEq at 05/13/2136 ??? QUEtiapine (SEROquel) tablet 25 mg 25 mg oral Daily Varsha Crowder NP 25 mg at 05/13/21 0937 ??? QUEtiapine (SEROquel) tablet 50 mg 50 mg oral Nightly Varsha Crowder NP 50 mg at ??? sodium chloride 0.9% flush 0.5-20 mL 0.5-20 mL intra-catheter Q8H Rhina Flores MD 10 mL at 05/13/21 0607 ??? acetaminophen ? ? al & mag hydroxide aycywebqptn-xznbolsjopweupd-umhtxvqbu-nystatin ??? albuterol ??? dextrose OR dextrose ??? [...] and transurethral resection of bladder tumor at [facility] -s/p 20??Finnish three way catheter, urine still bloody -holding Plavix and Lovenox -urology follows ?? Acute resp failure - self ext 05/05/21 -Lung infiltrates - pulm vascular congestion versus pneumonia -off Lasix due to hyponatremia, changed to Zosyn due to worsening Leukocytosis -today on 5L per MS -pulmonology follows ?? Type 2 diabetes.??- transitioned [...] MD [facility] Hospitalist 05/13/2021 1:43 PM DESIGN ENGINEER * Braulio Ortega MD - 05/13/2021 12:32 [...] Lying Lying Pulse: 71 86 91 Resp: 18 18 Temp: 36.3 ??C (97.4 ??F) 36.9 ??C (98.5 ??F) 36.7 ??C (98.1 ??F) 36.7 ??C (98 ??F) TempSrc: Oral Oral Oral Oral SpO2: 95% 94% 96% 97% Weight: Height: I/O last 2 completed shifts: In: 240 [P.O.:240] Out: 1999 [Urine:2000] Physical exam: Physical Exam Not in distress [...] ? [AUG Hold] al & mag hydroxide psrminuetaw-vreigluoflduvnw-wvanlzvmo-nystatin (MAGIC MOUTHWASH) suspension 1-1-1-1 20 mL swish [...] MD 75 mg at 05/10/21 0854 ??? [AUG Hold] dextrose oral liquid liquid 15 g 15 g oral Q15 Min PRN Anibal Mon MD Or ??? [AUG Hold] dextrose (D10W) 10% bolus 250 mL 250 mL intravenous Q15 Min PRN Anibal Lara MD ??? [AUG Hold] docusate sodium (COLACE) capsule 100 mg 100 mg oral BID Rhina Granados MD 100 mgat 05/13/21 0936 ??? [Held by Provider] enoxaparin (LOVENOX) syringe 40 mg 40 mg subcutaneous Daily-2100 Rhina Granados MD 40 mg at 05/10/212140 ??? [AUG Hold] glucagon injection 1 mg 1 mg intramuscular Q30 Min PRN Anibal Mon MD ??? [AUG Hold] guaiFENesin ER (MUCINEX) extended release tablet 600 mg 600 mg oral BID Tiana Spence NP 600 mg at 05/13/21 0936 ??? [MAR Hold] haloperidol (HALDOL) injection 2 mg 2 mg intramuscular Q8H PRN Varsha Crowder NP ??? [AUG Hold] insulin glargine (LANTUS, SEMGLEE) 100 unit/mL injection 20 Units 0.25 Units/kg subcutaneous Nightly Anibal Lara MD 20 Units at 05/12/21 2222 ??? [AUG Hold] insulin lispro (HumaLOG, ADMELOG) 100 unit/mL injection 0-10 Units 0-10 Units subcutaneous TID with meals Anibal Lara MD 4 Units at 05/13/21 0938 ??? [AUG Hold] insulin lispro (HumaLOG, ADMELOG) [...] Daily Lester Batista MD 12.5 mg at 05/13/21 0937 ??? [AUG Hold] ondansetron (ZOFRAN) injection 4 mg 4 mg intravenous Q6H PRN Rhina Granados MD ??? [AUG Hold] pantoprazole DR (PROTONIX) extended release tablet 40 mg 40 mg oral Daily Rhina Granados MD 40 mg at 05/13/21 0936 ??? [AUG Hold] piperacillin-tazobactam (ZOSYN) 3.375 g in sodium chloride 0.9% 100 mL IVPB 3.375 g intravenous Q6H LEAH Eleonora Duarte NP 200 mL/hr at 05/13/21 0607 3.375 g at 05/13/21 0607 ??? [AUG Hold] polyethylene glycol (MIRALAX) packet 17 g 17 g oral BID Rhina Granados MD 17 g at 05/13/21 0936 ??? [AUG Hold] potassium chloride ER (KLOR-CON) extended release tablet 20 mEq 20 mEq oral BID Eleonora Duarte NP 20 mEq at 05/13/21 0936 ??? [AUG Hold] QUEtiapine (SEROquel) tablet 25 mg 25 mg oral Daily Varsha Crowder NP 25 mg at107/13/20 0937 ??? [AUG Hold] QUEtiapine (SEROquel) tablet 50 mg 50 mg oral Nightly Varsha Crowder NP 50 mg at 05/12/21 2205 ??? [MAR Hold] sodium chloride 0.9% flush 0.5-20 mL 0.5-20 mL intra-catheter Q8H NabilA. Flores MD 10 mL at 05/13/21 0607 ??? sodium chloride 0.9% flush 0.5-20 mL [...] CT scan. Braulio Ortega MD Urology Division [facility] Office [phone] 05/13/2021 12:33 PM DESIGN ENGINEER * Ellen Shore PTA - 05/13/2021 11:48 AM CST Physical Therapy Unavailable, gone from room for procedure. Ellen Shore PTA 05/13/21 11:49 AM DESIGN ENGINEER * Shruthi Hu COTA - 05/13/2021 11:14 AM CST Occupational Therapy NO THERAPY OR OT CHARGES GIVEN THIS MORNING D/T PATIENT JUST RECENTLY TAKEN TO OPERATING ROOM. THERAPIST WILL ADDRESS SESSION LATER IN AFTERNOON IF TIME PERMITTING AND/OR PER AVAILABILITY/ APPROPRIATENESS. CAITIE Tinsley 05/13/21 11:15 AM DESIGN ENGINEER DESIGN ENGINEER * Varsha Crowder NP - 05/13/2021 10:13 AM CST Atrial and ventricular pacing wires removed without difficulty. VSS. Telemetry: NSR. No distress noted. Patient instructed to remain on bedrest for one hour and notify the nurse if shortness of breath or chest pain develops. Varsha Crowder MSN, RN, AGPCNP-C Cardiothoracic Surgery [facility] Office: DESIGN ENGINEER * Varsha Crowder NP - 05/13/2021 10:13 [...] In: 240 [P.O.:240] Out: 1999 [Urine:1999] Physical Exam HENT: Mouth/Throat: Mouth: Mucous membranes [...] Sternum covered with silver Saph sites steristipped CLINICAL CASE MANAGER Neurological: General: No focal deficit present. Mental [...] mmol/L 94* 94* 95* CO2 mmol/L 22 22 23 BUN SERUM mg/dL 27* 26* [...] the PDA 05/04/[address] Granados Neuro: [id number] today, awake. Continue Seroquel as scheduled, PRN [...] returning home Varsha Crowder NP Cardiothoracic Surgery [facility] Cosigned by Rhina Granados MD at 05/13/2021 1:[address] DESIGN ENGINEER DESIGN ENGINEER DESIGN ENGINEER * Lester Batista MD - 05/13/2021 8:28 AM CST Cardiology Inpatient Progress Note [facility] SUBJECTIVE: Hematuria noted blood pressure remains high 90s to low 100s no chest pain shortness of breath OBJECTIVE: Vitals: 05/12/21 2208 05/12/21 2300 05/13/21 0417 05/13/21 0802 BP: 97/50 103/67 136/65 102/60 BP Location: Right arm Right arm Right arm Patient Position: Lying Lying Lying Pulse: 61 71 86 Resp: 19 18 Temp: 36.3 ??C (97.4 ??F) 36.9 ??C [...] ~40% -balloon angioplasty was performed during acute AZ and subsequently patient underwent CABG x4 on [...] to undergo cystoscopy today Lester Batista MD, [facility], [facility], [facility] Hand Router Operator [facility] [phone] DESIGN ENGINEER * August Colin MD - 05/13/2021 5:46 [...] hematuria as well. Workup revealed an acute AZ. Cath showed multi-vessel CAD. Had balloon pump [...] Meds:.acetaminophen ? ? al & mag hydroxide spzrklqtdga-srcwkbuajvunvin-ehgunkmaf-nystatin ??? albuterol ??? dextrose OR dextrose ??? glucagon ??? haloperidol ??? ondansetron ??? sodium chloride 0.9% ROS Above review of system reviewed on 05/13/2021 Vitals: Vitals: 05/12/21 1900 05/12/21 2208 05/12/21 2300 05/13/21 0417 BP: 100/63 97/50 103/67 136/65 BP Location: Right arm Right arm Right arm Patient Position: Lying Lying Lying Pulse: 61 71 Resp: 19 19 Temp: 36.7 ??C (98.1 ??F) 36.3 ??C [...] Assessment and Plan: Acute respiratory failure Acute AZ w CAD s/p CABG x 4 on 05/04/21, past hx multiple stents Cardiogenic shock Cardiomyopathy EF 40% V fib Hx COPD Anemia Infiltrates: edema v pna, tracheal aspirate w yeast ?? Recs: Oxygen as required. Wean as tolerated Incentive spirometry abx coverage for pna Scheduled bronchodilators Chart reviewed DESIGN ENGINEER * Yves Weinberg MD - 05/12/2021 9:24 PM CST Nephrology Progress Note [facility] SUBJECTIVE Doing fair. Some flank pain [...] Height: Intake/Output Summary (Last 24 hours) at 05/12/20214 Last data filed at 05/12/2021 1550 Gross [...] 1454 ? ? al & mag hydroxide zwjhcawuypt-izrhmxihamxxuiv-mdatzozda-nystatin (MAGIC MOUTHWASH) suspension 1-1-1-1, 20 mL, swish [...] at 05/12/21 1724, 75 mL/hr at 05/12/21 1724 Lab/Radiology/Diagnostic Review: Recent Results (from the past [...] Aortic atherosclerosis. No failure. The right IJ Guadalupita-Radha catheter has been retracted with its tip [...] with left pleural fluid decreasing. No pneumothorax. Guadalupita-Radha catheter remainsin place Impression: Decreasing failure, atelectasis [...] with left pleural fluid decreasing. No pneumothorax. Guadalupita-Radha catheter remains in place Impression: Decreasing failure, [...] atelectasis with left pleural fluid. No pneumothorax. Guadalupita-Radha catheter remains in place Impression: Decreasing failure. No pneumothorax. Electronically signed by: Deacon Cummings M.D. XR Chest 1 View - Portable - in AM Result Date: 05/07/2021 Narrative: EXAMINATION: XR CHEST 1 VIEW DATE: 05/07/2021 3:55 AM HISTORY: 60-year-old man follow-upcardiac surgery FINDINGS:Compared with study of the previous day, postsurgical changes in the heartand mediastinum with cardiomegaly are stable. Guadalupita-Radha catheter remains in place. Left thoracostomy tube [...] Interval placement of endotracheal tube, nasogastric tube, Guadalupita-Radha catheter, left thoracostomy tube and mediastinal drain [...] Echo (TTE) Limited Result Date: 05/07/2021 Narrative: [place] [address] Limited Echocardiogram Report Patient Name: DEEPAK ALVARADO : 1960 StudyDate: 05/07/2021 12:16:52 PM Gender: M Tech: Location: [place] [address] Ref.Provider: RHINA GRANADOS Height(Cm): 175 BSA: 2.1 [...] tamponade. Electronically Signed By: Gianni Francois MD, [facility] 2021-05-07 12:54:09 ROAD DESIGN ENGINEER Transthoracic Echo Complete W Doppler/CF Result Date: 05/02/2021 Narrative: [place] [address] Echocardiogram Report Patient Name: DEEPAK ALVARADO W : 1960 Study Date: 05/02/2021 8:50:02 AM Gender: M Tech: Location: [id number] Ref Provider: NALINI CLAYTONHeight(Cm): 175 BSA: 2.11 [...] valve. Electronically Signed By: Rylee Brito DO, [facility], [facility] 2021-05-02 14:07:25 ROAD DESIGN ENGINEER CC: CC: CC: ASSESSMENT/PLAN Hyponatremia from SIADH [...] -monitor ?? I can be reached at [phone] with any concerns. Thank you Rhina Granados MD for the consult. Yves Weinberg MD [employer] [phone] DESIGN ENGINEER * Anibal Lara MD - 05/12/2021 1:53 [...] NP ? ? al & mag hydroxide pqczjuyapgx-ffcxzdgdtmwmrni-zmhmyuuuy-nystatin (MAGIC MOUTHWASH) suspension 1-1-1-1 20 mL swish [...] Nightly Rhina Granados MD 80 mg at 05/11/213 ??? [Held by Provider] clopidogreL (PLAVIX) tablet [...] chloride 0.9% 100 mL IVPB 3.375 g [id number] Eleonora Mccall NP 200 mL/hr at 05/12/21 1215 3.375 [...] 25 mg oral Daily Varsha Crowder NP ??? QUEtiapine (SEROquel) tablet 50 mg 50 mg oral Nightly Varsha Crowder NP ??? sodium chloride 0.9% flush 0.5-20 mL 0.5-20 mL intra-catheter Q8H [facility] Rhina Granados MD 10 mL at 05/12/21 0626 ??? sodium chloride 0.9% flush 0.5-20 mL 0.5-20 mL intra-catheter PRN Robby Suárez MD acetaminophen ? ? al & mag hydroxide hkpvqhznumt-iqyzvghssnvovqx-uldnqjrni-nystatin ??? albuterol ??? dextrose OR dextrose ??? [...] and transurethral resection of bladder tumor at [facility] -s/p 20??Finnish three way catheter, urine still bloody -holding [...] MD [facility] Hospitalist 05/12/2021 1:53 PM DESIGN ENGINEER * Alejandro Pratt MD - 05/12/2021 11:26 [...] hematuria as well. Workup revealed an acute AZ. Cath showed multi-vessel CAD. Had balloon pump [...] Meds:.acetaminophen ? ? al & mag hydroxide trqjypvuqie-gbfiybwepmancnk-qeznkdhws-nystatin ??? albuterol ??? dextrose OR dextrose ??? [...] Assessment and Plan: Acute respiratory failure Acute AZ w CAD s/p CABG x 4 on 05/04/21, past hx multiple stents Cardiogenic shock Cardiomyopathy EF 40% V fib Hx COPD Anemia Infiltrates: edema v pna, tracheal aspirate w yeast ?? Recs: Oxygen as required. Wean as tolerated Incentive spirometry abx coverage for pna Scheduled bronchodilators Chart reviewed DESIGN ENGINEER * Ellen Shore, LABORATORY HELPER - 05/12/2021 11:10 AM CST Physical Therapy [...] established deficits and goals. DISCHARGE LOCATION RECOMMENDATIONS: [facility] If this is the last note, please consider this the discharge summary. Cosigned by Marylu Dempsey, PT at 05/12/2021 1:[address] DESIGN ENGINEER DESIGN ENGINEER DESIGN ENGINEER DESIGN ENGINEER * Lester Batista MD - 05/12/2021 10:33 AM CST Cardiology Inpatient Progress Note [facility] SUBJECTIVE: Does not have [...] ~40% -balloon angioplasty was performed during acute AZ and subsequently patient underwent CABG x4 on [...] to undergo urological procedure Lester Batista MD, [facility], [facility], [facility] Hand Router Operator [facility] [phone] DESIGN ENGINEER * Varsha Crowder NP - 05/12/2021 10:00 AM CST Cardiothoracic Surgery Progress Note Deepak Alvarado 1960 Hospital DAY#11 8 Days Post-Op s/p: Procedures: * Coronary artery bypass grafting x4, placement of left QUINN to the LAD, saphenous vein graft to thediagonal artery and obtuse marginal in a sequential fashion, saphenous vein graft to the PDA- [place] Subjective: Patient resting in chair, has wet cough. Having pain at osorio site. Was scheduled for cystoscopy this AM however became acutely confused and refused procedure. Now alert and oriented and agreeable to proceed. Discussed w/ urology [facility] [employer] [facility] who will reschedule for tomorrow AM OBJECTIVE: [...] 1800 [Urine:1800] NET -1740ml for 24 hours -[id number] for stay Physical Exam HENT: Mouth/Throat: Mouth: [...] Sternum covered with silver Saph sites steristipped CLINICAL CASE MANAGER Neurological: General: No focal deficit present. Mental [...] the PDA 05/04/[address] Granados Neuro: [id number] now, confused overnight. Received extra dose of [...] mid week. Varsha Crowder NP Cardiothoracic Surgery [facility] Cosigned by Rhina Granados MD at 05/12/2021 3:[address] DESIGN ENGINEER DESIGN ENGINEER DESIGN ENGINEER * Lsie Suggs NP - 05/12/2021 9:40 AM CST [...] ST elevation myocardial infarction (STEMI) ([facility]) 60 y.o. male with gross hematuria and clot retention. Patient is scheduled for cystoscopy, ureteroscopy, clot evacuation 05/13/2021 at 12:[address] Paris. EFRENO after midnight. COVID-19 test is negative. Thank you for allowing Urology to be a part of the care of your patient. Please call if you have any questions. Lise Suggs NP Urology Division [facility] Office [phone] 05/12/2021 09:40 AM Cosigned by Robinson Paris MD at 05/17/2021 7:[address] DESIGN ENGINEER DESIGN ENGINEER DESIGN ENGINEER * Shruthi Hu COTA - 05/12/2021 9:37 AM CST Occupational Therapy NOTE / SESSION TYPE: DAILY PROGRESS / TREATMENT Patient's Name: Deepak Alvarado Age / Sex: 60 y.o. / male Room: [place] [id number] : 1960 Date of service: 05/12/21 TIME [...] Yes Completed patient handoff and notified MANAGER RESEARCH DEVELOPMENT / RN, name: CALE, of patient's location [...] VCS Mobility / Transfers: Bed Mobility: MIN [id number] ASSIST FOR TRUNK COMPONENT FROM SUPINE > [...] Deirdre Conley, OT at 05/13/2021 3:[address] DESIGN ENGINEER DESIGN ENGINEER DESIGN ENGINEER * Monica Morales, RD - 05/12/2021 8:31 [...] Weight Used for Estimated Kcals: Current ?? [facility] Total Energy Needs: 1924.8 kcal using Activity Factor: 1.2 ?? NIKO [facility] Total Energy Needs + Fever Factor: [...] medication as directed by your doctor. Call [phone] to speak with a dietitian about any diet related concerns. Recommend to follow up with outpatient nutrition counseling, ask your doctor for a referral and call [phone] to make an appointment. Nutrition Follow-Up : 05/15/[address],LD DESIGN ENGINEER * Narciso Mayer MD - 05/11/2021 2:53 [...] hematuria as well. Workup revealed an acute AZ. Cath showed multi-vessel CAD. Had balloon pump [...] acetaminophen ? ? al & mag hydroxide njydjhxqpdy-mckcoyiwwbzrlng-wygggpgnd-nystatin ??? albuterol ??? dextrose OR dextrose ??? [...] Assessment and Plan: Acute respiratory failure Acute [place] w CAD s/p CABG x 4 on 05/04/21, past hx multiple stents Cardiogenic shock Cardiomyopathy EF 40% V fib Hx COPD Anemia Infiltrates: edema v pna, tracheal aspirate w yeast ?? Recs: Oxygen as required. Wean as tolerated Incentive spirometry abx coverage for pna Scheduled bronchodilators DC daily chest x-ray Chart reviewed DESIGN ENGINEER * Anibal Lara MD - 05/11/2021 11:26 [...] NP ? ? al & mag hydroxide cbzbjymguhr-iyadzpqfpcooorh-wdgwtzhzt-nystatin (MAGIC MOUTHWASH) suspension 1-1-1-1 20 mL swish [...] chloride 0.9% 100 mL IVPB 3.375 g [id number] [facility] Eleonora Duarte NP 200 mL/hr at 05/11/21 0506 3.375 g at 05/11/21 0506 ??? polyethylene glycol (MIRALAX) packet 17 g 17 g oral BID Rhina Granados MD 17 g at 05/10/21 2141 ??? potassium chloride ER (KLOR-CON) extended release tablet 20 mEq 20 mEq oral BID Eleonora Duarte NP 20 mEq at 05/11/21 1124 ??? QUEtiapine (SEROquel) tablet 25 mg 25 mg oral BID Eleonora Duarte NP 25 mg at 05/11/21 1124 ??? sodium chloride 0.9% flush 0.5-20 mL 0.5-20 mL intra-catheter Q8H [facility] Rhina Granados MD 10 mL at 05/11/21 0554 ??? acetaminophen ? ? al & mag hydroxide uoyegdjpwth-tsnnknqavmnblcz-qbnylnrsl-nystatin ??? albuterol ??? dextrose OR dextrose ??? [...] and transurethral resection of bladder tumor at [facility] -s/p 20??Finnish three way catheter, urine still bloody -holding [...] MD [facility] Hospitalist 05/11/2021 11:26 AM DESIGN ENGINEER * Sandee Paez, PT - 05/11/2021 10:51 [...] Continued hematuria with possible plan for cystoscopy. ([id number] - too painful - returned at later [...] year is 2000 PAIN: Pre-therapy pain level: 01/27 Pain location: bladder/osorio Pain intervention: PT session [...] established deficits and goals. DISCHARGE LOCATION RECOMMENDATIONS: [facility] or inpatient rehab, but per CT surgeryNP refusing to consider either of these options, patient only wants to go home. If this is the last note, please consider this the discharge summary. DESIGN ENGINEER * Nalini Clayton MD - 05/11/2021 10:32 AM CST [facility] - Cardiology [facility] Progress Note Admit [...] found for: T3FREE No results found for: S4BAGEW Pain Assessment: Sleeping Pain Interventions: Medication (See [...] chloride 0.9% 100 mL IVPB 3.375 g tztijhuptiqN9J LEAH ??? polyethylene glycol (MIRALAX) packet 17 [...] PRN ? ? al & mag hydroxide zywzdwobqln-rrernhamqlkfksf-rxeakokdx-nystatin (MAGIC MOUTHWASH) suspension 1-1-1-1 20 mL swish [...] -magic mouthwash PRN ?? Nalini Clayton MD DESIGN ENGINEER DESIGN ENGINEER * Yves Weinberg MD - 05/11/2021 10:22 AM CST Nephrology Progress Note [facility] SUBJECTIVE Doing fair. Some flank pain [...] EFREN ? ? al & mag hydroxide vguloykattt-ctwhnqwwwjhpirs-rgehntmlg-nystatin (MAGIC MOUTHWASH) suspension 1-1-1-1, 20 mL, swish [...] BID, Tiana Spence NP, 600 mg at 05/10/212141 ??? insulin [...] Aortic atherosclerosis. No failure. The right IJ Guadalupita-Radha catheter has been retracted with its tip [...] with left pleural fluid decreasing. No pneumothorax. Guadalupita-Radha catheter remainsin place Impression: Decreasing failure, atelectasis [...] with left pleural fluid decreasing. No pneumothorax. Guadalupita-Radha catheter remains in place Impression: Decreasing failure, [...] atelectasis with left pleural fluid. No pneumothorax. Guadalupita-Radha catheter remains in place Impression: Decreasing failure. No pneumothorax. Electronically signed by: Deacon Cummings M.D. XR Chest 1 View - Portable - in AM Result Date: 05/07/2021 Narrative: EXAMINATION: XR CHEST 1 VIEW DATE: 05/07/2021 3:55 AM HISTORY: 60-year-old man follow-upcardiac surgery FINDINGS:Compared with study of the previous day, postsurgical changes in the heartand mediastinum with cardiomegaly are stable. Guadalupita-Radha catheter remains in place. Left thoracostomy tube [...] Interval placement of endotracheal tube, nasogastric tube, Guadalupita-Radha catheter, left thoracostomy tube and mediastinal drain all in satisfactory position. No pneumothorax. Interstitial lung disease with mild pulmonary vascular congestive changes. Aortic balloon pump is no longer seen. Impression: Tube placements with postsurgical changes with cardiomegaly with interstitial lung disease and mild failure with no pneumothorax. Electronically signed by: Worthy Cummings, M.D. XR Chest 1 Vw Portable Result [...] Echo (TTE) Limited Result Date: 05/07/2021 Narrative: [place] [address] Limited Echocardiogram Report Patient Name: DEEPAK ALVARADO : 1960 StudyDate: 05/07/2021 12:16:52 PM Gender: M Tech: SR Location: [id number] Ref.Provider: RHINA GRANADOS Height(Cm): 175 BSA: 2.1 [...] tamponade. Electronically Signed By: Gianni Francois MD, [facility] 2021-05-07 12:54:09 ROAD DESIGN ENGINEER Transthoracic Echo Complete W Doppler/CF Result Date: 05/02/2021 Narrative: [place] [address] Echocardiogram Report Patient Name: DEEPAK ALVARADO W : 1960 Study Date: 05/02/2021 8:50:02 AM Gender: M Tech: SR Location: [id number] Ref Provider: NALINI CLAYTONHeight(Cm): 175 BSA: 2.11 [...] Signed By: Rylee Brito DO, FACJustyna, [place], [facility] 2021-05-02 14:07:25 ROAD DESIGN ENGINEER CC: CC: CC: ASSESSMENT/PLAN Hyponatremia from SIADH [...] -monitor ?? I can be reached at [phone] with any concerns. Thank you Nalini Clayton MD for the consult. Yves Weinberg MD [employer] [phone] DESIGN ENGINEER * Varsha Crowder NP - 05/11/2021 9:30 AM CST Cardiothoracic Surgery Progress Note Deepak Alvarado 1960 Hospital DAY#10 7 Days Post-Op s/p: Procedures: * Coronary artery bypass grafting x4, placement of left QUINN to the LAD, saphenous vein graft to thediagonal artery and obtuse marginal in a sequential fashion, saphenous vein graft to the PDA- Darwin Subjective: Patient resting in bed on 4L [...] Sternum covered with silver Saph sites steristipped CLINICAL CASE MANAGER Neurological: General: No focal deficit present. Mental Status: He is alert and oriented to person, place, and time. Psychiatric: Behavior: Behavior normal. Access: central line Recent Labs Lab Units 05/11/21 0605/10/21 0502 05/09/21 0612 WBC K/cumm 17.3* 21.2* [...] the PDA 05/04/[address] Granados Neuro: Jp5t9-5, slightly impulsive. Seroquel increased CVS: NSR 90's. [...] mid week. Varsha Crowder NP Cardiothoracic Surgery [facility] Cosigned by Rhina Granados MD at 05/11/2021 4:[address] DESIGN ENGINEER DESIGN ENGINEER DESIGN ENGINEER * Fritz Shruthi BLOOD - 05/11/2021 8:45 AM CST Occupational Therapy NOTE / SESSION TYPE: DAILY PROGRESS / TREATMENT Patient's Name: Deepak Alvarado Age / Sex: 60 y.o. / male Room: [id number] : 1960 Date of service: 05/11/21 TIME [...] Yes Completed patient handoff and notified MANAGER RESEARCH DEVELOPMENT / RN, name: CALE, of patient's location [...] Rich Haynes OT at 05/11/2021 2:[address] DESIGN ENGINEER DESIGN ENGINEER DESIGN ENGINEER * Lise Suggs, BUTCHER OR SMALLGOODS MAKER - 05/11/2021 8:18 AM CST Urology Progress [...] any questions. Lise Suggs NP Urology Division [facility] Office [phone] 05/11/2021 8:18 AM Cosigned by Robinson Paris MD at 05/17/2021 7:[address] DESIGN ENGINEER DESIGN ENGINEER DESIGN ENGINEER DESIGN ENGINEER * Eleonora Duarte, EFREN - 05/10/2021 12:31 PM CST Cardiothoracic Surgery Progress Note Deepak Alvarado 1960 Hospital DAY#9 6 Days Post-Op s/p: [...] the PDA 05/04/[address] Granados Neuro: [id number] but mild confusion with impulsive behavior. Will [...] week. Eleonora Duarte NP Cardiothoracic Surgery [facility] DESIGN ENGINEER DESIGN ENGINEER * Anibal Lara MD - 05/10/2021 11:56 [...] NP ? ? al & mag hydroxide mtabmqhkbvj-qfdtaasfaegysai-xkpckyeap-nystatin (MAGIC MOUTHWASH) suspension 1-1-1-1 20 mL swish & spit Q4H PRN Tiana Spence NP 20 mL at 05/09/21 1815 ??? albumin [...] tablet 80 mg 80 mg oral Nightly Rihna Granados MD 80 mg at 05/09/21 2248 [...] acetaminophen ? ? al & mag hydroxide ekanshaqlta-yesmhijogybdyzd-xgytzohti-nystatin ??? albumin ??? albuterol ??? dextrose OR [...] and transurethral resection of bladder tumor at [facility] -s/p 20??Finnish three way catheter, urine still bloody -urology [...] MD [facility] Hospitalist 05/10/2021 11:56 AM DESIGN ENGINEER * Tiana Spence BUTCHER OR SMALLGOODS MAKER - 05/10/2021 8:13 AM CST Daily Progress SUBJECTIVE: Events of this am noted: per RN states that when pt was stood up to get his weigh, he had a syncopal episode. Pt was lowered to floor. Code was called, but pt never lost pulse, code cancelled. Pt woke up as he was laying on the floor. Charo, RN states that it was reported to her, [...] improved -magic mouthwash PRN Tiana Spence NP [facility] 05/10/2021 8:13 AM DESIGN ENGINEER * August Colin MD - 05/10/2021 7:19 [...] hematuria as well. Workup revealed an acute AZ. Cath showed multi-vessel CAD. Had balloon pump [...] acetaminophen ? ? al & mag hydroxide moleaibbgzw-bjynryninkftvbe-mtazsphhp-nystatin ??? albumin ??? albuterol ??? dextrose OR [...] 82* 66* 75* HCO3 ART (CALC) mmol/L 22 BASE EXC ART mmol/L -4 -3 -4 O2 SAT ART (JOELLE) % 97* 94 96* Imaging: CXR 05/09 pulmonary vascular congestion Other diagnostic tests: I have personally reviewed above laboratory findings, chest imaging, and diagnostic tests 05/10/2021 Assessment and Plan: Acute respiratory failure Acute AZ w CAD s/p CABG x 4 on 05/04/21, past hx multiple stents Cardiogenic shock Cardiomyopathy EF 40% V fib Hx COPD Anemia Infiltrates: edema v pna, tracheal aspirate w yeast ?? Recs: Oxygen as required. Wean as tolerated Incentive spirometry abx coverage for pna Scheduled bronchodilators Follow CXR ??Dobutamine, diuresis Chart reviewed Discussed with RN DESIGN ENGINEER * Anibal Lara MD - 05/09/2021 12:20 [...] NP ? ? al & mag hydroxide uybftejjdjc-hpspdvzbmizrlth-omirwfbhu-nystatin (MAGIC MOUTHWASH) suspension 1-1-1-1 20 mL swish [...] BID Rhina Granados MD 100 mg at 05/09/21 0851 ??? [...] acetaminophen ? ? al & mag hydroxide klamijadggl-brrzjirgzpbuazy-evtdwytyn-nystatin ??? albumin ??? albuterol ??? dextrose OR [...] and transurethral resection of bladder tumor at [facility] -s/p 20??Finnish three way catheter, urine still bloody -urology [...] MD [facility] Hospitalist 05/09/2021 12:20 PM DESIGN ENGINEER DESIGN ENGINEER * Eleonora Duarte NP - 05/09/2021 11:15 AM CST Cardiothoracic Surgery Progress Note Deepak Alvarado 1960 Hospital DAY#8 5 Days Post-Op s/p: Procedures: * Coronary artery bypass grafting x4, placement of left QUINN to the LAD, saphenous vein graft to thediagonal artery and obtuse marginal in a sequential fashion, saphenous vein graft to the PDA- Darwin Subjective: In bed on 2L- refused to [...] central line Recent Labs Lab Units 05/09/21 0612 05/08/21 0555 05/07/21 0421 WBC K/cumm 16.0* 16.2* 16.6* HEMOGLOBIN [...] 16- afebrile D/L/T: PW VVI Back up, Piotr, praneeth : Osorio remains in place per . Will await their reccs for further management in the setting of recent bladder surgery Prophylaxis: Lovenox Dispo: Need SW assessment. PT/OT to eval and treat. Patient already states he is only going home. Has 2 sons and a at home but is disabled. Home early next week. Eleonora Duarte NP Cardiothoracic Surgery [facility] Cosigned by Rhina Granados MD at 05/09/2021 6:[address] DESIGN ENGINEER DESIGN ENGINEER DESIGN ENGINEER * Tiana Spence NP - 05/09/2021 9:33 [...] -magic mouthwash PRN ? Tiana Spence NP [facility] 05/09/2021 9:33 AM DESIGN ENGINEER * August Colin MD - 05/09/2021 7:31 [...] hematuria as well. Workup revealed an acute AZ. Cath showed multi-vessel CAD. Had balloon pump [...] acetaminophen ? ? al & mag hydroxide nodhkkanavj-kneyvyxwlaegfcn-awpefdrsu-nystatin ??? albumin ??? albuterol ??? dextrose OR [...] Assessment and Plan: Acute respiratory failure Acute AZ w CAD s/p CABG x 4 on 05/04/21, past hx multiple stents Cardiogenic shock Cardiomyopathy EF 40% V fib Hx COPD Anemia Infiltrates: edema v pna, tracheal aspirate w yeast ?? Recs: Oxygen as required. Wean as tolerated Incentive spirometry abx coverage for pna Scheduled bronchodilators Follow CXR ??Dobutamine, diuresis Chart reviewed DESIGN ENGINEER * Tiana Spence BUTCHER OR SMALLGOODS MAKER - 05/08/2021 4:12 PM CST Daily Progress SUBJECTIVE: Mr. Alvarado is resting in bed, NAD C/o Mild incisional pain, productive cough, and my mouth and tongue are raw and hurt -> no evidence of thrush on exam. Wet BUTCHER OR SMALLGOODS MAKER cough, afraid to cough it up Denies [...] hurt -magic mouthwash ordered. D/w EFREN Maddox [facility] Tiana Spence NP [facility] 05/08/2021 4:12 PM DESIGN ENGINEER * Monica Morales RD - 05/08/2021 3:22 [...] to Ensure High PRO per flavor preferences. HuWcB0g of 13.5. RD provided Steps To Your [...] - 29.9 Overweight 3 Day I/O Summary 05/060 - 05/08 0659 In: 1058.7 [P.O.:100; I.V.:567] Out: 7250 [Urine:6910] Temp: 36.4 ??C (97.5 ??F) Minute Ventilation (L/min): 12.7 L/min Past Medical History: Diagnosis Date ??? Chronic obstructive pulmonary disease (CMS/HCC) ([facility]) COPD ??? Coronary artery disease ??? Diabetes mellitus ([facility]) ??? H/O heart artery stent 2006 ??? Hypertension Hypertension ??? ST elevation (STEMI) myocardial infarction ([facility]) 05/01/2021 Medications and Lab Review: Scheduled [...] medication as directed by your doctor. Call [phone] to speak with a dietitian about any diet related concerns. Recommend to follow up with outpatient nutrition counseling, ask your doctor for a referral and call [phone] to make an appointment. Nutrition Follow-Up : 05/12/21 (verbal edu as able on tuesday) Monica Morales RD,LD DESIGN ENGINEER * Laly Lopes MD - 05/08/2021 3:04 PM CST Cardiothoracic Surgery Progress Note Deepak Alvarado 1960 Hospital DAY#7 2 Days Post-Op s/p: Procedures: * CORONARY ARTERY BYPASS GRAFT x 4 - LEFT INTERNAL MAMMARY ARTERY TAKEDOWN, RIGHT SAPHENOUS VEIN ENDOHARVEST, CARDIOPULMONARY BYPASS, TRANSESOPHAGEAL ECHOCARDIOGRAM Subjective: Doing well overnight. On PLAYERS CLUB REPRESENTATIVE slow wean. No complaints. OBJECTIVE: Vitals: Temp: [36.4 ??C (97.5 ??F)] 36.4 ??C (97.5 ??F) Pulse: [70-90] 70 BP: (80-129)/(49-80) 115/66 Resp: [16-32] 18 SpO2: [86 %-100 %] 100 % SVO2: [32 %-62 %] 32 % Arterial Line BP: (87-147)/(35-61) 95/57 PAP: 17/6 (05/08 08) CVP: 0 mmHg (05/08 800) PCWP: -- CO: 4.6 L/min (05/08 0410) CI: 2.2 L/min/m2 (05/08 410) SVO2: 32 % (05/08 0630) Pacemaker Overdrive [...] EXC ART mmol/L -4 -3 -4 Drips: PLAYERS CLUB REPRESENTATIVE 2 Imaging: Today's CXR significantly improved pulmonary edema Assessment and Plan: 60 y.o. male 2 Days Post-Op s/p CABG CVS: Cont PLAYERS CLUB REPRESENTATIVE wean. PRN hydral for HTN. ASA, statin, plavix. Pulm: Wean O2 as tolerated GI: CLD Renal: Lasix TID ID: Cont CTX for 7 day course for PNA D/L/T: CVC Prophylaxis: Lovenox Dispo: TTF Laly Lopes MD Cardiothoracic Surgery [facility] Cosigned by Rhina Granados MD at 05/08/2021 5:[address] DESIGN ENGINEER DESIGN ENGINEER DESIGN ENGINEER * Ellen Shore, LABORATORY HELPER - 05/08/2021 1:51 PM CST Physical Therapy PT PROGRESS NOTE Deepak Alvarado 60 y.o. 1960 Past Medical History: Diagnosis Date ??? Chronic obstructive pulmonary disease (CMS/HCC) ([facility]) COPD ??? Coronary artery disease ??? Diabetes mellitus (HCC) ??? H/O heart artery stent 2006 ??? Hypertension Hypertension ??? ST elevation (STEMI) myocardial infarction ([facility]) 05/01/2021 No past surgical history on file. Patient Active Problem List Diagnosis ??? ST elevation myocardial infarction (STEMI) ([facility]) TIME IN: 1351 TIME OUT: 1418 [...] CGA at slow pace, narrow JAZMYN, uneven isabell, lateral trunk sway, 230'x1 APPEARANCE/POSTURE (end of [...] Sandee Paez, PT at 05/08/2021 3:[address] DESIGN ENGINEER DESIGN ENGINEER DESIGN ENGINEER * Romeo Nagel RN - 05/08/2021 12:02 PM CST Pt transferred to [facility][note 3]. Pt tolerated the transfer well. DEEPIKA Yu given bedside report. RN had no questions or concerns. DESIGN ENGINEER * Anibal Lara MD - 05/08/2021 11:53 AM CST Hospitalist Progress Note Name: Deepak Alvarado Admission Date: 05/01/2021 Today's Date: 05/08/2021 Subjective: Pt seen and examined while in the ICU, Clinical course: Overall pt condition has improved. Pt will be transferred to 9th floor, [facility] with blood urine and still on Dobutamine [...] Nightly Rhina Granados MD 80 mg at 05/07/215 ??? cefTRIAXone (ROCEPHIN) 2,000 mg/20 mL in [...] subcutaneous NightlyMarek Mei, EFREN 10 Units at 05/07/216 ??? insulin lispro (HumaLOG, ADMELOG) 100 unit/mL injection 0-5 Units 0-5 Units subcutaneous Q4H Marek Mei, EFREN 1 Units at 05/08/21 0845 ??? ondansetron [...] flush 0.5-20 mL 0.5-20 mL intra-catheter Q8H [facility] Rhina Granados MD 10 mL at 05/08/21 [...] and transurethral resection of bladder tumor at [facility] -s/p 20??Finnish three way catheter, urine still bloody -urology [...] MD [facility] Hospitalist 05/08/2021 11:54 AM DESIGN ENGINEER * Sheorn Adams COTA - 05/08/2021 11:45 AM CST Occupational Therapy NOTE / SESSION TYPE: DAILY PROGRESS / TREATMENT Patient's Name: Deepak Alvarado Age / Sex: 60 y.o. / [id number] 1960 Date of service: 05/08/21 TIME [...] Yes Completed patient handoff and notified MANAGER RESEARCH DEVELOPMENT / RN, name: Aimee, of patient's location [...] note, consider this the discharge summary CAITIE Cesar 05/08/21 Cosigned by Tamar Dennis OT at 05/08/2021 3:[address] DESIGN ENGINEER DESIGN ENGINEER DESIGN ENGINEER * Ralf Tomlinson MD - 05/08/2021 10:40 AM CST Pulmonary Daily Progress Chief complaint/reason for consult: Respiratory failure. Interval History: Feels better comf on RA Pain controlled Presenting History: 60 yo man w COPD, DM, CAD/stents admitted 05/01/21 with chest pain. Had recent hematuria as well. Workup revealed an acute AZ. Cath showed multi-vessel CAD. Had balloon pump [...] 0421 05/06/21 1312 05/05/21 1204 05/05/21 0419 05/02/213 05/01/212218 WBC K/cumm 16.2* 16.6* 16.1* < > [...] 05/04/21 0247 05/03/21 0736 05/03/21 0419 05/02/21 04405/01/212218 SODIUM mmol/L -- 131* -- -- 137 [...] Assessment and Plan: Acute respiratory failure Acute AZ w CAD s/p CABG x 4 on 05/04/21, past hx multiple stents Cardiogenic shock Cardiomyopathy EF 40% V fib Hx COPD Anemia Infiltrates: edema v pna, tracheal aspirate w yeast ?? Recs: Oxygen as required Incentive spirometry abx coverage for pna Scheduled bronchodilators Follow CXR ?? Chart reviewed DESIGN ENGINEER * Nimesh Evans MD - 05/08/2021 10:20 AM CST Images from the original note were not included. Critical Care Medicine Daily Progress Team: SICU [place] Team Subjective Interval events: No issues overnight, chronic back pain better controlled on current pain regimen. 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 Hemoglobin stable post transfusion. O2 [...] to the cardiac catheterization lab here at [facility] where he underwent coronary angiography via right [...] 04/30/21 Inserted by: inserted by urologist at [facility] Placed by External Staff?: Other hospital Catheter Type: Straight-tip Catheter Balloon Size: 10 mL Urine Returned: (c)Yes Number of days: 4 I/O: Date 05/07/21699 - 05/08/21 0659 05/08/21 07 - 05/09/21 0659 Shift 8954-0418 1995-6511 24 Hour Total 2827-7384 9682-8265 24 Hour Total INTAKE P.O. 100 100 360 360 I.V.(mL/kg) 417(4.6) 45(0.5) 462(5.3) Blood 391.7 391.7 Shift Total(mL/kg) 808.7(8.8) 145(1.7) 953.7(10.9) 360(4.1) 360(4.1) OUTPUT Urine(mL/kg/hr) 2385(2.2) 3625(3.5) 6010(2.9) 200 200 Chest Tube 50 50 Shift Total(mL/kg) 2435(26.6) 3625(41.5) 6060(69.3) 200(2.3) 200(2.3) NET -1626.3 -1040 -5106.3 160 160 Weight (kg) 91.4 87.4 [...] per unit protocol - PT/OT per post AZ/CTS protocol ? ICU standards of care: Restraints: n/a Physical therapy/Activity: up to chair Access: PIV x3, dc PA Cath, dc Art line in L radial Family communication: Patient updated as per his current clinical status and ongoing plan of care. Goals of care: Full code SICU [place] Team, Dr. Nimesh Evans Assessment and plan has been reviewed with attending, DOMENICA Gatica Cosigned by Domenica Rod MD at 05/08/2021 4:[address] DESIGN ENGINEER DESIGN ENGINEER DESIGN ENGINEER * Lise Suggs, BUTCHER OR SMALLGOODS MAKER - 05/08/2021 8:25 AM CST Urology Progress [...] ST elevation myocardial infarction (STEMI) ([facility]) 60 y.o. male with gross hematuria with clot retention. Continue to monitor his urinary output. Maintain the Osorio catheter and provide catheter care. Continue to monitor his HGB. Thank you for allowing Urology to be a part of the care of your patient. Please call if you have any questions. Lise Suggs NP Urology Division [facility] Office [phone] 05/08/2021 8:26 AM Cosigned by Edward Trejo DO at 05/08/2021 12:[address] DESIGN ENGINEER DESIGN ENGINEER DESIGN ENGINEER * Elizabeth Adan NP - 05/07/2021 1:09 PM CST General Medicine [...] AM Result Value Ref Range Product code [id number] Unit Number [id number] Product Blood Type APOS Dispense Status CROSSMATCHED [...] IABP on 05/01/2021. Assessment & Plan: Acute AZ with CAD s/p CABG x4; - cardio/ CTS consults reviewed ; on IABP 1:1 ; cont on dobutamine; cont asa and statin Shock - cardiogenic ; post op Cabg - s/p fluid resuscitation ; levophed weaned off; cont on dobutamine - threat monitoring analyst V fib - briefly on 05/03 - s/p amiodarone ; now on dobutamine ; BB restarted 05/06 Gross Hematuria - in a pt with hx of cystoscopy, clot evacuation and transurethral resection of bladder tumor at [facility] ; urology consult ; s/p [address]; continuousirrigation -resolved Acute resp [...] CBC Tobacco use. Vitamin-D deficiency.- stable Prophylaxis. Elizabeth Duarte ANP [facility] [phone] 05/07/2021 1:09 PM DESIGN ENGINEER * Philippe Sandee L., PT - 05/07/2021 10:48 AM CST Physical [...] and transurethral resection of bladder tumor) at [facility] 04/30/2021 and was discharged 05/01/2021. Patient transferred to for emergent cardiac catheterization. Patient admitted with acute anterior wall AZ, s/p cardiac cath with PTCA of the [...] (from Physical Therapy) Active Problems Problem: PT [facility] Start Date: 05/07/21 Goal Start Date Expected End Date End Date PT [facility] 1 05/07/21 05/18/21 -- Goal Details: Perform bed mobility with CG Assist. Goal Start Date Expected End Date End Date PT [facility] - [facility] 2 05/07/21 05/18/21 -- Goal Details: Perform functional transfers with CG Assist. Goal Start Date Expected End Date End Date PT [facility] - [facility] 3 05/07/21 05/18/21 -- Goal Details: Gait 150' with WW with CG Assist. Goal Start Date Expected End Date End Date PT [facility] - [facility] 4 05/07/21 05/18/21 -- Goal Details: Perform LE HEP, incentive spirometry and incentive spirometry with SBA Goal Start Date Expected End Date End Date PT [facility] - [facility] 5 05/07/21 05/18/21 -- Goal Details: Perform 1 step with CG Assist. Refer to multi-disciplinary care plan section for PT specific goals. If this is the last note, please consider this the discharge summary. DESIGN ENGINEER * Nasima Watson MD - 05/07/2021 10:12 [...] stable Anemia -Hb 8.16 ? Nasima Watson MD,[facility] 05/07/2021 10:12 AM DESIGN ENGINEER * Nimesh Evans MD - 05/07/2021 9:48 AM CST Images from the original note were not included. Critical Care Medicine Daily Progress Team: S[facility] [place] Team Subjective Interval events: No issues overnight, chronic back pain better controlled on current pain regimen. 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 Hemoglobin stable post transfusion. O2 [...] to the cardiac catheterization lab here at [facility] where he underwent coronary angiography via right [...] 04/30/21 Inserted by: inserted by urologist at [facility] Placed by External Staff?: Other hospital Catheter Type: Straight-tip Catheter Balloon Size: 10 mL Urine Returned: (c) Yes Number of days: 4 I/O: Date 05/06/21699 - 05/07/2165805/07/21699 - 05/08/21658 Shift 8975-9918 0856-1849 24 Hour Total 0156-9447 6067-1629 24 Hour Total INTAKE I.V.(mL/kg) 1449(15.9) 105(1.1) 1554(17) Shift Total(mL/kg) 1449(15.9) 105(1.1) 1554(17) OUTPUT Urine(mL/kg/hr) 1800(1.6) 900(0.8) 2700(1.2) 75 75 Chest Tube 230 290 520 50 50 Shift Total(mL/kg) 2030(22.2) 1190(13) 3220(35.2) 125(1.4) 125(1.4) [facility] -581 -1085 -1666 -125 -125 Weight (kg) [...] per unit protocol - PT/OT per post [place]/CTS protocol ? ICU standards of care: Restraints: n/a Physical therapy/Activity: up to chair Access: PIV x3, PA Cath, Art line in L radial Family communication: Patient updated as per his current clinical status and ongoing plan of care. Goals of care: Full code SICU [place] Team, Dr. Nimesh Evans Assessment and plan has been reviewed with attending, DOMENICA Gatica Cosigned by Domenica Rod MD at 05/07/2021 3:[address] DESIGN ENGINEER DESIGN ENGINEER DESIGN ENGINEER Associated attestation - Domenica Rod MD - 05/07/2021 3:[address] DESIGN ENGINEER 60 y/o with cad s/p PCI presented with chest pain and EKG findings concernign for AZ transferred here where lad showed multiple stenoses and underwent CABG 05/03. Awake and appropriate PRN opiates if needed for pain Wean off optiflow today to nasal cannula Cardiogenic shock remains on DBT with very low filling pressures. SBP dropped with wean attempt mayconsider cautious fluid administration Domenica Rod MD [facility] Department of Anesthesiology and Critical Care * [...] hematuria as well. Workup revealed an acute AZ. Cath showed multi-vessel CAD. Had balloon pump [...] ??? potassium chloride ??? prochlorperazine ??? traZODone JHONNY Above review of system reviewed on 05/07/2021 [...] 1312 05/06/21 0332 05/05/21 1204 05/05/21 0419 05/02/21 0443 05/01/212218 WBC K/cumm 16.6* 16.1* 14.6* < [...] 82* 66* 75* HCO3 ART (CALC) mmol/L 22 22 BASE EXC ART mmol/L -4 -3 -4 O2 SAT ART (JOELLE) % 97* 94 96* Imaging: CXR 05/06/21: PVC Other diagnostic tests: I have personally reviewed above laboratory findings, chest imaging, and diagnostic tests 05/07/2021 Assessment and Plan: Acute respiratory failure Acute AZ w CAD s/p CABG x 4 on 05/04/21, past hx multiple stents Cardiogenic shock Cardiomyopathy EF 40% V fib Hx COPD Anemia Infiltrates: edema v pna ?? Recs: Oxygen as required Incentive inspirometry Hemodynamic support abx coverage for pna Scheduled bronchodilators Follow CXR ?? Chart reviewed Discussed w DEEPIKA DESIGN ENGINEER * Deirdre Conley, OT - 05/07/2021 8:34 AM CST Occupational Therapy NOTE / SESSION TYPE: Initial Evaluation Patient Name: Deepak Alvarado Date of : 1960 Age / Sex: 60 y.o. / male Room: [place] [address] Admit Date: 05/01/2021 Date of Service: 05/07/21 Time In: 08:34 Time Out: 09:22 Primary Diagnosis: ST elevation myocardial infarction (STEMI) ([facility]) HPI: Deepak Alvarado is a 60 y.o. male who presents with retrosternal chest pain accompanied by sweating and shortness of breath. Patient underwent bladder surgery (cystoscopy, clot evacuation, and transurethral resection of bladder tumor) at [facility] 04/30/2021 and was discharged 05/01/2021. Patient transferred to for emergent cardiac catheterization. Patient admitted with acute anterior wall AZ, s/p cardiac cath with PTCA of the [...] Yes Completed patient handoff and notified MANAGER RESEARCH DEVELOPMENT / RN, name: Octavia, of patient's location [...] flexion / abduction 3-/5 Hand Dominance: Right Puppy Trainer Strength (Right) fair Puppy Trainer Strength (Left): fair Right Serial Opposition: Decreased [...] (from Occupational Therapy) Active Problems Problem: OT [facility] Start Date: 05/07/21 Goal Start Date Expected End Date End Date OT [facility] - [facility] 1 05/07/21 05/14/21 -- Goal Details: Patient will complete bathing with minimal assistance and using adaptive equipment PRN one time Goal Start Date Expected End Date End Date OT [facility] - [facility] 2 05/07/21 05/14/21 -- Goal Details: Patient will complete UE dressing with minimal assistance one time Goal Start Date Expected End Date End Date OT [facility] - [facility] 3 05/07/21 05/14/21 -- Goal Details: Patient will complete LE dressing with moderate assistance and using adaptive equipment PRN one time Goal Start Date Expected End Date End Date OT [facility] - [facility] 4 05/07/21 05/14/21 -- Goal Details: Patient will complete bed/toilet transfers with minimal assistance x1 person and using appropriate device PRN one time each Goal Start Date Expected End Date End Date OT [facility] - [facility] 5 05/07/21 05/14/21 -- Goal Details: Patient will complete chest mobilization exercises with moderate verbal cues one time Goal Start Date Expected End Date End Date OT [facility] - Misc 6 05/07/21 05/14/21 -- Goal Details: Patient will adhere to sternal precautions during ADLS with minimal verbal cues one time Goal Start Date Expected End Date End Date OT [facility] - Misc 7 05/07/21 05/14/21 -- Goal Details: Patient will be oriented x4 using visual cues as needed one time If this is the last note, consider this the discharge summary Deirdre Conley, OT 05/07/21 DESIGN ENGINEER * Lise Suggs NP - 05/07/2021 8:05 [...] Extremities: warm and well perfused : [address] Ind[address] Osorio catheter is patent draining dark hematuria with no clots Assessment /Plan Principal Problem: ST elevation myocardial infarction (STEMI) ([facility]) 60 y.o. male with gross hematuria [...] any questions. Lise Suggs NP Urology Division [facility] Office [phone] 05/07/2021 8:06 AM Cosigned by Edward Trejo DO at 05/07/2021 12:[address] DESIGN ENGINEER DESIGN ENGINEER DESIGN ENGINEER * Laly Lopes MD - 05/07/2021 7:25 [...] %-70 %] 40 % PAP: 25/10 (05/07 07) CVP: 4 mmHg (05/07 700) PCWP: -- CO: -- CI: -- SVO2: 52 % (05/07 700) Pacemaker Overdrive Pacing: -- Cardiac Rhythm: Normal [...] 2 Days Post-Op s/p CABG CVS: Cont PLAYERS CLUB REPRESENTATIVE wean. Keep PAC. PRN hydral for HTN. ASA, statin, plavix. Pulm: Wean O2 as tolerated GI: CLD Renal: Lasix TID ID: Cont CTX for 7 day course for PNA D/L/T: DC CT today Prophylaxis: Lovenox Dispo: CVU Laly Lopes MD Cardiothoracic Surgery [facility] Cosigned by Rhina Granados MD at 05/08/2021 1:[address] DESIGN ENGINEER DESIGN ENGINEER DESIGN ENGINEER * Lise Suggs NP - 05/06/2021 4:44 [...] Extremities: warm and well perfused : #[address] hematuria catheter is draining cranberry juice colored urine with no blood clots appreciated. CBI is off. Assessment /Plan Principal Problem: ST elevation myocardial infarction (STEMI) ([facility]) 60 y.o. male with gross hematuria [...] any questions. Lise Suggs NP Urology Division [facility] Office [phone] 05/06/2021 4:44 PM Cosigned by Edward Trejo DO at 05/06/2021 5:[address] DESIGN ENGINEER DESIGN ENGINEER DESIGN ENGINEER * Nalini Clayton MD - 05/06/2021 10:45 AM CST [facility] - Cardiology [facility] Progress Note Admit [...] Pulse: 73 70 70 71 Resp: 22 26 18 24 Temp: TempSrc: SpO2: 95% 97% [...] found for: T3FREE No results found for: H1CZAAJ Pain Assessment: 0-10 Pain Score: 6 Patient's [...] 0.9% infusion 20 mL/hr 20 mL/hr (05/04/21 2309) ??? sodium chloride 0.9% solution 3-12 mL/hr [...] 1. Coronary artery disease: Patient presented to [facility] with an acute STEMI. Catheterization revealed [...] is following.H/H stable ? Nalini Clayton MD DESIGN ENGINEER DESIGN ENGINEER * Ralf Tomlinson MD - 05/06/2021 10:09 AM CST Pulmonary Daily Progress Chief complaint/reason for consult: Respiratory failure. Interval History: On optiflow this morning, required some bipap yesterday More awake and alert On dobutamine, balloon pump out Low grade fevers Presenting History: 60 yo man w COPD, DM, CAD/stents admitted 05/01/21 with chest pain. Had recent hematuria as well. Workup revealed an acute AZ. Cath showed multi-vessel CAD. Had balloon pump [...] ??? oxyCODONE ??? potassium chloride ??? prochlorperazine ROS Above review of system reviewed on 05/06/2021 [...] Units 05/06/21 0332 05/05/21 1204 05/05/21 0419 05/02/21 0443 05/01/21 2219 WBC K/cumm 14.6* 13.5* 13.2* < > [...] 0247 05/03/21 0736 05/03/21 0419 05/02/21 0443 11/12/21 2219 SODIUM mmol/L -- 142 -- -- 141 [...] 82* 66* 75* HCO3 ART (CALC) mmol/L 22 22 BASE EXC ART mmol/L -4 -3 -4 O2 SAT ART (JOELLE) % 97* 94 96* Imaging: CXR 05/06/21: PVC Other diagnostic tests: I have personally reviewed above laboratory findings, chest imaging, and diagnostic tests 05/06/2021 Assessment and Plan: Acute respiratory failure Acute AZ w CAD s/p CABG x 4 on 05/04/21, past hx multiple stents Cardiogenic shock Cardiomyopathy EF 40% V fib Hx COPD Anemia Infiltrates: edema v pna ?? Recs: Optiflow, adjust as needed, bipap PRN Hemodynamic support abx coverage for pna Tracheal aspirate pending Scheduled bronchodilators Follow CXR ?? Chart reviewed Discussed w RN DESIGN ENGINEER * Nimesh Evans MD - 05/06/2021 9:38 AM CST Images from the original note were not included. DELAYED ENTRY OF NOTE: This patient was evaluated and treated as per below on 05/06/2021 Critical Care Medicine Daily Progress Team: [facility]ICU [place] Team Subjective Interval events: No issues overnight, chronic back pain better controlled on current pain regimen. 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 Hemoglobin stable post transfusion. O2 [...] to the cardiac catheterization lab here at [facility] where he underwent coronary angiography via right [...] 04/30/21 Inserted by: inserted by urologist at [facility] Placed by External Staff?: Other hospital Catheter Type: Straight-tip Catheter Balloon Size: 10 mL Urine Returned: (c) Yes Number of days: 4 I/O: Date 05/06/21 07 - 05/07/21 0659 05/07/21 07 - 05/08/21 0659 Shift 1626-4295 3591-4252 24 Hour Total 4207-9679 0141-3664 24 Hour Total INTAKE I.V.(mL/kg) 1449(15.9) 105(1.1) [...] per unit protocol - PT/OT per post [place]/CTS protocol ? ICU standards of care: Restraints: [...] care. Goals of care: Full code SICU [place] Team, Dr. Nimesh Evans Assessment and plan has been reviewed with attending, DOMENICA Gatica Cosigned by Domenica Rod MD at 05/07/2021 7:[address] DESIGN ENGINEER DESIGN ENGINEER DESIGN ENGINEER * Elizabeth Adan NP - 05/06/2021 9:03 [...] IABP on 05/01/2021. Assessment & Plan: Acute AZ with CAD s/p CABG x4; - cardio/ CTS consults reviewed ; on IABP 1:1 ; cont on dobutamine; cont asa and statin Shock - cardiogenic ; post op Cabg - s/p fluid resuscitation ; levophed weaned off; cont on dobutamine - threat monitoring analyst V fib - briefly on 05/03 - s/p amiodarone ; now on dobutamine ; BB restarted 05/06 Gross Hematuria - in a pt with hx of cystoscopy, clot evacuation and transurethral resection of bladder tumor at [facility] ; urology consult ; s/p [address] catheter; continuousirrigation -resolved Acute resp [...] CBC Tobacco use. Vitamin-D deficiency.- stable Prophylaxis. Elizabeth Duarte, ANP [facility] [phone] 05/06/2021 9:03 AM DESIGN ENGINEER * Marylu Dempsey, PT - 05/06/2021 8:58 AM CST Physical Therapy Physical Therapy continues on medical cancel. Patient currently on bedrest due to IABP. Plans to wean and remove IABP today per RN report. Patient remain extubated on optiflow HFNC. Will attempt evaluation at later time when patient able to participate. Marylu Moreno, PT 05/06/21 9:00 AM DESIGN ENGINEER * Laly Lopes MD - 05/06/2021 7:45 [...] (%): [40 %-100 %] 70 % PAP: 27/14 (05/06 730) CVP: 8 mmHg (05/06 730) [...] CVS: DC IABP today, then begin slow PLAYERS CLUB REPRESENTATIVE wean. Keep PAC. PRN hydral for HTN. ASA, statin, plavix. Pulm: Wean O2 as tolerated GI: CLD Renal: Lasix TID ID: Cont cefepime D/L/T: Keep CT, PAC. DC CBI today. Prophylaxis: Lovenox Dispo: CVU Laly Lopes MD Cardiothoracic Surgery [facility] Cosigned by Rhina Granados MD at 05/08/2021 1:[address] DESIGN ENGINEER DESIGN ENGINEER DESIGN ENGINEER * Blue Cooley Jr., MD - 05/05/2021 2:18 PM CST Daily Progress SUBJECTIVE: Mr. Alvarado is day 1 status post 4 vessel bypass surgery. He is currently sedated and on BiPAP. Condition reviewed with the patient's bedside RN. He apparently had some runs of ventricular tachycardia with hypotension overnight. Presently his rhythm shows atrial fibrillation which occurred started at 11:00 a.m. this morning. OBJECTIVE: Vitals: 05/05/21 1315 [...] 1. Coronary artery disease: Patient presented to [facility] with an acute STEMI. Catheterization revealed [...] Urology is following. Blue Cooley Jr., MD [facility] 05/05/2021 2:18 PM DESIGN ENGINEER * Elizabeth Adan NP - 05/05/2021 1:37 [...] PM Result Value Ref Range Product code C2245R05 Unit Number [id number] Product Blood Type APOS Dispense Status PRESUMED TRANSFUSED Product code Q8587B19 Unit Number [id number] Product Blood Type APOS Dispense Status PRESUMED [...] PM Result Value Ref Range Product code Z0471C26 Unit Number [id number] Product Blood Type APOS Dispense Status CROSSMATCHED Product code R9670Y82 Unit Number [id number] Product Blood Type APOS Dispense Status CROSSMATCHED Product code P9466S38 Unit Number [id number] Product Blood Type APOS Dispense Status CROSSMATCHED Product code H9728U89 Unit Number [id number] Product Blood Type APOS Dispense Status CROSSMATCHED [...] PM Result Value Ref Range Product code R0183A57 Unit Number [id number] Product Blood Type OPOS Dispense Status PRESUMED TRANSFUSED Product code F5513M16 Unit Number [id number] Product Blood Type APOS Dispense Status PRESUMED [...] PM Result Value Ref Range Product code S8731Z54 Unit Number [id number] Product Blood Type APOS Dispense Status PRESUMED [...] IABP on 05/01/2021. Assessment & Plan: Acute AZ with CAD s/p CABG x4; - cardio/ CTS consults reviewed ; on IABP 1:1 ; cont on dobutamine; cont asa and statin Shock - cardiogenic ; post op Cabg - s/p fluid resuscitation ; levophed weaned off; cont on dobutamine - threat monitoring analyst ; BB held V fib - briefly on 05/03 - s/p amiodarone ; now on dobutamine Gross Hematuria - in a pt with hx of cystoscopy, clot evacuation and transurethral resection of bladder tumor at [facility] ; urology consult ; s/p [address] catheter; continuousirrigation - resolving Acute [...] Tobacco use. Vitamin-D deficiency.- stable Prophylaxis. ProtonixElizabeth, TRELL [facility] [phone] 05/05/2021 1:37 PM DESIGN ENGINEER * Miranda Garza RN - 05/05/2021 11:33 AM CST CM Initial Assessment Interview Note Information Obtained From: Spouse Name: Geno Alvarado- spouse- [phone], patient designated foster care case manager (05/05/211130) Admission Source: from home with spouse Impression: recently extubated in the CVU/ICU. Normally axox4 and independent from home Plan Includes: return home at discharge Primary Source of Transportation: self and family Health Insurance Coverage: Johann- spoke with spouse about insurance was OON for [facility] and what that means. Verbalized understanding. Prescription Coverage: yes Pharmacy: [facility] Primary Care Provider: Billie Roth- tamera at this time- instructed spouse to call number on [employer] card for assistance finding PCP in their area that take the insurance/ Prior to Admission: Primary Caregiver: Self Support System: Spouse/Significant Other Support system contact info (name, phone, availablity): Geno Alvarado- spouse- [phone], patient designated foster care case manager Home Care Services: No Durable Medical Equipment: [...] Collaboration with patient, MD, direct care nurse, Chief Concierge, Nurse Coordinator and other members of the health care team to assure needed interventions completed. 2. Return patient to optimal level of self-care post discharge. 3. Lead Burner will follow for Discharge Planning - interventions as needed 4. Anticipated level of care at discharge 5. Planned Discharge Disposition Miranda Garza WIRE STITCHER MACHINE Lead Burner [phone] DESIGN ENGINEER * Marylu Dempsey, PT - 05/05/2021 9:49 AM CST Physical Therapy Physical Therapy on medical cancel. Patient currently on bedrest due to IABP. Patient was intubatedbut self extubated within the hour. CCP, RN, and RT present in room. Will attempt evaluation at later time when patient able to participate. Marylu Moreno, PT 05/05/21 9:52 AM DESIGN ENGINEER * Nimesh Evans MD - 05/05/2021 9:45 AM CST Images from the original note were not included. Critical Care Medicine Daily Progress Team: SICU [place] Team Subjective Interval events: No issues overnight, chronic back pain better controlled on current pain regimen. 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 Hemoglobin stable post transfusion. O2 [...] to the cardiac catheterization lab here at [facility] where he underwent coronary angiography via right [...] regular, 0-30 Units/hr, Last Rate: 3.3 Units/hr (05/05/21654) norepinephrine, 0-2 mcg/kg/min, Last Rate: 0.06 mcg/kg/min [...] 04/30/21 Inserted by: inserted by urologist at [facility] Placed by External Staff?: Other hospital Catheter Type: Straight-tip Catheter Balloon Size: 10 mL Urine Returned: (c) Yes Number of days: 4 I/O: Date 05/04/21699 - 05/05/21 0659 05/05/21 07 - 05/06/21 0659 Shift 3620-0050 7670-3453 24 Hour Total 0540-0707 8862-7684 24 Hour Total INTAKE P.O. 120 120 I.V.(mL/kg) 1180(12.9) 4416(48.4) 5596(61.3) Blood 850 1886 2736 IV Piggyback 1000 1000 Shift Total(mL/kg) 2150(23.5) 7302(80) 9452(103.5) OUTPUT Urine(mL/kg/hr) -1890(-1.7) 1850(1.7) -40(-0) 1050 1050 Other 1700 1700 Chest Tube 1025 1025 Shift Total(mL/kg) -190(-2.1) 2875(31.5) 2685(29.4) 1050(11.5) 1050(11.5) NET 2340 4451 6789 -1050 -1050 Weight (kg) 91.3 91.3 91.3 [...] PM Result Value Ref Range Product code D3585P42 Unit Number [id number] Product Blood Type APOS Dispense Status PRESUMED TRANSFUSED Product code T3428M28 Unit Number [id number] Product Blood Type APOS Dispense Status PRESUMED [...] PM Result Value Ref Range Product code A4515P67 Unit Number [id number] Product Blood Type APOS Dispense Status CROSSMATCHED Product code W5520U18 Unit Number [id number] Product Blood Type APOS Dispense Status CROSSMATCHED Product code Y7829E07 Unit Number [id number] Product Blood Type APOS Dispense Status CROSSMATCHED Product code E6104T41 Unit Number [id number] Product Blood Type APOS Dispense Status CROSSMATCHED [...] PM Result Value Ref Range Product code P8477X45 Unit Number [id number] Product Blood Type OPOS Dispense Status ISSUED Product code G5034K50 Unit Number [id number] Product Blood Type APOS Dispense Status ISSUED [...] PM Result Value Ref Range Product code J6461B69 Unit Number [id number] Product Blood Type APOS Dispense Status ISSUED [...] PM Result Value Ref Range Product code Q5244M27 Unit Number [id number] Product Blood Type APOS Dispense Status PRESUMED TRANSFUSED Product code N1296D40 Unit Number [id number] Product Blood Type APOS Dispense Status PRESUMED [...] PM Result Value Ref Range Product code V1662X99 Unit Number [id number] Product Blood Type APOS Dispense Status CROSSMATCHED Product code Q2440G64 Unit Number [id number] Product Blood Type APOS Dispense Status CROSSMATCHED Product code D8718N64 Unit Number [id number] Product Blood Type APOS Dispense Status CROSSMATCHED Product code X9738W77 Unit Number [id number] Product Blood Type APOS Dispense Status CROSSMATCHED [...] PM Result Value Ref Range Product code E8428P92 Unit Number [id number] Product Blood Type OPOS Dispense Status ISSUED Product code O5250U07 Unit Number [id number] Product Blood Type APOS Dispense Status ISSUED [...] PM Result Value Ref Range Product code A5272Q05 Unit Number [id number] Product Blood Type APOS Dispense Status ISSUED [...] per unit protocol - PT/OT per post [place]/CTS protocol ? ICU standards of care: Restraints: [...] care. Goals of care: Full code SICU [place] Team, Dr. Nimesh Evans Assessment and plan has been reviewed with attending, FRANK Romero Cosigned by Frank Dugan MD at 05/05/2021 12:[address] DESIGN ENGINEER DESIGN ENGINEER DESIGN ENGINEER * Samra Kearns, OIL HEATER INSTALLER - 05/05/2021 9:35 AM CST Patient self-extubated at this time. SPO2 84% on room air. Placed patient on 100% FIO2 via non-rebreather mask. SPO2 increased to 92%. Opti-flow set up at this time for increased flow. Starting settings 100% FIO2 and 60 liters per minute. Will continue to monitor oxygen requirements and wean as tolerated. DESIGN ENGINEER * Lise Suggs NP - 05/05/2021 8:14 [...] any questions. Lise Suggs NP Urology Division [facility] Office [phone] 05/05/2021 8:15 AM Cosigned by Edward Trejo DO at 05/05/2021 10:[address] DESIGN ENGINEER DESIGN ENGINEER DESIGN ENGINEER * Deirdre Conley OT - 05/05/2021 7:55 [...] appropriate Deirdre Conley OT 05/05/21 7:56 AM DESIGN ENGINEER * Angie Davies RRT - 05/05/2021 2:21 AM CST Code Blue was called at approximately 0200. Pt was ventilated with BVM, ROSC was achieved quickly. Patient returned to ventilator on prior settings and etCO2 monitoring was initiated. DESIGN ENGINEER * Lester Batista MD - 05/04/2021 9:59 AM CST Cardiology Inpatient Progress Note [facility] SUBJECTIVE: BP borderline in [...] stable - Urology following Lester Batista MD, [facility] [place], [place] Hand Router Operator [facility] [phone] DESIGN ENGINEER * Nimesh Evans MD - 05/04/2021 9:53 AM CST Images from the original note were not included. Critical Care Medicine Daily Progress Team: SICU [place] Team Subjective Interval events: No issues overnight, chronic back pain better controlled on current pain regimen. 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 Hemoglobin stable post transfusion. O2 [...] to the cardiac catheterization lab here at [facility] where he underwent coronary angiography via right [...] ??? oxyCODONE Objective Vitals: Most Recent: Vitals: 05/04/21 0915 BP: (!) [...] 04/30/21 Inserted by: inserted by urologist at [facility] Placed by External Staff?: Other hospital Catheter Type: Straight-tip Catheter Balloon Size: 10 mL Urine Returned: (c) Yes Number of days: 4 I/O: Date 05/03/21699 - 05/04/2165805/04/21699 - 05/05/2159 Shift 1785-3821 1774-8645 24 Hour Total 6739-0540 4849-4457 24 Hour Total INTAKE P.O. 360 360 I.V.(mL/kg) 1158(12.6) 878(9.6) 2036(22.3) Shift Total(mL/kg) 1518(16.5) 878(9.6) 2396(26.2) OUTPUT Urine(mL/kg/hr) 720(0.7) 1310(1.2) 2030(0.9) 310 310 Shift Total(mL/kg) 720(7.8) 1310(14.3) 2030(22.2) 310(3.4) 310(3.4) NET 791 -039 366 -310 -310 Weight (kg) 91.8 91.3 [...] per unit protocol - PT/OT per post [place]/CTS protocol ? ICU standards of care: Restraints: n/a Physical therapy/Activity: bedrest (IABP) Access: PIV, R fem arterial sheath Family communication: none at bedside. Will update as available. Patient updated as per his currentclinical status and ongoing plan of care. Goals of care: Full code SICU [place] Team, Dr. Nimesh Evans Assessment and plan has been reviewed with attending, FRANK Romero Cosigned by Frank Dugan MD at 05/04/2021 10:[address] DESIGN ENGINEER DESIGN ENGINEER DESIGN ENGINEER * Elizabeth Adan NP - 05/04/2021 8:53 [...] dressing IABP Skin: No decubitus ulcers - osoiro - 3 way; bloody urine Labs: Labs reviewed Recent Results (from the past 24 hour(s)) Prepare RBC: 4 Units Collection Time: 05/03/21 9:26 AM Result Value Ref Range Product code J5736K56 Unit Number [id number] Product Blood Type APOS Dispense Status CROSSMATCHED Product code U8188W96 Unit Number [id number] Product Blood Type APOS Dispense Status CROSSMATCHED Product code [id number] Unit Number [id number] Product Blood Type APOS Dispense Status CROSSMATCHED Product code [id number] Unit Number [id number] Product Blood Type APOS Dispense Status CROSSMATCHED [...] mg/dL Assessment & Plan: Acute anterior wall AZ on admission. Admission troponins were 5852, 7281, [...] and transurethral resection of bladder tumor at [facility] ; urology consult ; [address] [facility] - start continuous irrigation CAD, status post LAD stent on 02/06/2010, per Care everywhere. Bladder tumor resection at [facility], on 04/30/2021, per patient report. Hypertension. Blood pressure controlled. On metoprolol. Hyperlipidemia. On statin. Type 2 diabetes. On Lantus, sliding-scale insulin. PVD. No ABIs or AIF available for review. Tobacco use. Vitamin-D deficiency. Leukocytosis of 16.4, follow. Anemia with hemoglobin of 10.7, follow. Slight hyponatremia, resolved. Prophylaxis. Protonix, SCDs. Elizabeth Adan, TRELL [facility] [phone] 05/04/2021 8:53 AM DESIGN ENGINEER * Laly Lopes MD - 05/04/2021 6:58 AM CST Cardiothoracic Surgery Progress Note Deep[facility] Alvarado 1960 Hospital DAY#3 3 Days Post-Op s/p: Procedures: * PCI PTCA - MAJOR CORONARY * PCI PTCA EA ADDTN'L BRANCH OF MAJOR CORONARY (+) [id number] * IABP INSERTION, PERCUTANEOUS 11516 Subjective: - no chest pain or SOB [...] AT pulses Recent Labs Lab Units 05/04/21 02505/03/2141805/02/211934 WBC K/cumm 16.7* 16.4* 16.5* HEMOGLOBIN g/dL 10.2* 10.7* 10.4* HEMATOCRIT % 29.6* 31.0* 30.7* PLATELETS K/cumm 332 321 317 Recent Labs Lab Units 05/04/2124605/03/2141805/02/211934 SODIUM mmol/L 131* 136 135 POTASSIUM PLASMA mmol/L 4.0 4.0 3.6 CHLORIDE mmol/L 100 105 103 CO2 mmol/L 20* 19* 21* BUN SERUM mg/dL 7* 6* 6* CREATININE mg/dL 0.58* 0.51* 0.60* CALCIUM mg/dL 8.5 8.6 8.4* Recent Labs Lab Units 05/04/21 0247 05/03/2141805/02/21 1100 05/02/21 0032 05/01/212218 PROTIME (PT) sec 13.4 -- -- -- [...] 100% proximal stenosis of the LAD with sikh of flow. An IABP wasplaced. He is stable for now without chest pain ?? Plan: - EF 40% on echo, no valvular abnormalities - Continue IABP - Need the images from lab support technician uploaded to ED01/PACS - evaluation this AM prior to OR Plan OR for second case today Laly Lopes MD Cardiothoracic Surgery [facility] Cosigned by Rhina Granados MD at 05/04/2021 12:[address] DESIGN ENGINEER DESIGN ENGINEER DESIGN ENGINEER * Ochoa Encinas MD - 05/03/2021 9:59 AM CST Cardiology Inpatient Progress Note [facility] SUBJECTIVE: Pt had no acute events overnight. He denies any chest pain. OBJECTIVE: Vitals: 05/03/21 0745 05/03/21 0800 05/03/21 0815 05/03/21 0830 BP: 128/59 128/58 124/65 96/51 Pulse: 92 84 82 84 Resp: 17 Temp: 36.8 ??C (98.2 ??F) TempSrc: [...] improved -continue to monitor Ochoa Encinas MD, [facility] 05/03/2021 9:59 AM DESIGN ENGINEER * Ainsley Rashid MD - 05/03/2021 9:36 AM CST Cardiothoracic Surgery Progress Note [facility] Alvar[facility] 1960 Hospital DAY#2 2 Days Post-Op s/p: Procedures: * PCI PTCA - MAJOR CORONARY * PCI PTCA EA ADDTN'L BRANCH OF MAJOR CORONARY (+) 06863 * IABP INSERTION, PERCUTANEOUS 23153 Subjective: - no chest pain or SOB [...] 100% proximal stenosis of the LAD with sikh of flow. An IABP wasplaced. He is [...] obtained today - Need the images from lab support technician uploaded to PICOM/PACS - Posted for OR tomorrow - Baseline Hg A1C 13% Ainsley Rashid MD Cardiothoracic Surgery [facility] Cosigned by Alex Blanco MD PhD at 05/11/2021 4:[address] DESIGN ENGINEER DESIGN ENGINEER DESIGN ENGINEER DESIGN ENGINEER Associated attestation - Alex Blanco MD PhD - 05/11/2021 4:[address] DESIGN ENGINEER I have seen and examined the patient on 05/03/2021. I personally reviewed labs, radiology studies, diagnostic tests, and device settings from the last 24 hours and agree with the findings and assessment documented by CT surgery Fellow who signed above. My assessment and plan regarding mechanical circulatory support are as stated above with the deviceinterrogation information. * rFank Dugan MD - 05/03/2021 9:24 AM CST Images from the original note were not included. Critical Care Medicine Daily Progress Team: pink Subjective Interval events: No issues overnight, chronic back pain better controlled on current pain regimen. 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 Hemoglobin stable post transfusion. O2 [...] to the cardiac catheterization lab here at [facility] where he underwent coronary angiography via right [...] 2 mcg/kg/min, Last Rate: 2 mcg/kg/min (05/03/21 0457) heparin, 0-33 Units/kg/hr, Last Rate: 11.6 Units/kg/hr (05/02/21 181) sodium chloride 0.9%, 50 mL/hr, Last Rate: 50 mL/hr (05/02/21 2343) PRN Medications: ??? acetaminophen ??? dextrose OR dextrose ??? glucagon ??? heparin OR heparin ??? ondansetron ??? oxyCODONE Objective Vitals: Most Recent: Vitals: 05/03/21 0830 BP: 96/51 Pulse: 84 Resp: 17 Temp: SpO2: 96% Vitals: 05/03/21 0745 05/03/21 0800 05/03/21 0815 05/03/21 0830 BP: 128/59 128/58 124/65 96/51 Pulse: 92 84 82 84 Resp: 17 24 Temp: 36.8 ??C (98.2 ??F) TempSrc: Oral SpO2: 94% 94% 95% 96% Weight: Height: 24hr Min/Max: Temp Min: 36.4 ??C (97.5 ??F) Max: 36.8 ??C (98.2 ??F) Pulse Min: 57 Max: 109 BP Min: 86/56 Max: 128/58 Resp Min: 8 Max: 28 SpO2 Min: 76 % Max: 98 % LDA: Arterial Sheath 8 Fr. Right Femoral (Active) Placement Date/Time: 05/01/21 173 Catheter Time Out Checklist Completed: Yes Hand [...] 04/30/21 Inserted by: inserted by urologist at [facility] Placed by External Staff?: Other hospital Catheter Type: Straight-tip Catheter Balloon Size: 10 mL Urine Returned: (c) Yes Number of days: 2 Vent settings: I/O: Date 05/02/21 07 - 05/03/21 0659 05/03/21 07 - 05/04/21 0659 Shift 3209-2259 8111-9112 24 Hour Total 5202-8620 8610-1048 24 Hour Total INTAKE P.O. 0 0 [...] PM Result Value Ref Range Product code [id number] Unit Number [id number] Product Blood Type APOS Dispense Status PRESUMED [...] Electronically Signed By: Rylee Brito, DO, FACC, FASE, FASNC 2021-05-02 14:07:25 ROAD DESIGN ENGINEER XR Chest 1 Vw Portable Result Date: [...] per unit protocol - PT/OT per post AZ/CTS protocol ICU standards of care: Restraints: n/a Physical therapy/Activity: bedrest (IABP) Access: PIV, R fem arterial sheath Family communication: none at bedside. Will update as available. Patient updated as per his currentclinical status and ongoing plan of care. He he is talked extensively with CTS and aware will be going for CABG tomorrow Goals of care: Full code Frank Dugan MD [phone] [facility] DESIGN ENGINEER * Lulú Garcia MD - 05/03/2021 8:21 [...] 114/56 Pulse: 82 78 75 82 Resp: Temp: TempSrc: SpO2: 95% 95% 97% 97% Weight: Height: I/O last 2 completed shifts: In: 1506.5 [I.V.:1106.5; Blood:300; IV Piggyback:100] Out: 3340 [Urine:3340] No intake/output data recorded. Current Facility-Administered Medications Medication Dose Route Frequency Provider Last Rate Last Admin ??? acetaminophen (TYLENOL) tablet 1,000 mg 1,000 mg oral Q6H PRN Wally Aguilar, DO 1,000 mg at 05/02/212025 ??? aspirin [...] 250 mL intravenous Q15 Min PRN Wally Aguilar DO ??? eptifibatide (INTEGRILIN) 0.75 mg/mL infusion [...] 13 Units 0.15 Units/kg subcutaneous Nightly Wally Aguilar DO 13 Units at 05/02/212037 ??? insulin lispro (HumaLOG, ADMELOG) 100 unit/mL injection 0-4 Units 0-4 Units subcutaneous Nightly Wally Aguilar DO ??? insulin lispro (HumaLOG, ADMELOG) 100 unit/mL injection 0-5 Units 0-5 Units subcutaneous TID with meals Jeff, Wally Alejandro, DO ??? insulin lispro (HumaLOG, ADMELOG) 100 [...] 5 mg oral Q4H PRN Wally Aguilar, 5 mg at 05/02/21 0838 ??? pantoprazole DR (PROTONIX) extended release tablet 40 mg 40 mg oral Daily Wally Aguilar DO 40 mg at 05/03/21 0746 ??? ramelteon (ROZEREM) tablet 8 mg 8 mg oral Nightly Balta Ahn MD 8 mg at 05/02/212025 ??? senna-docusate (PERICOLACE) 8.6-50 mg per tablet 1 tablet 1 tablet oral Nightly Wally Aguilar, DO 1 tablet at 05/02/212024 ??? sodium chloride 0.9% infusion 50 mL/hr intravenous Continuous Nalini Clayton MD 50 mL/hr at 05/02/21 2343 50 mL/hr at 05/02/21 2343 ??? traZODone (DESYREL) tablet 50 mg 50 [...] and mood ASSESSMENT/PLAN: 1. Acute anterior wall AZ on admission. Admission troponins were 5852, 7281, [...] Care everywhere. 4. Bladder tumor resection at [facility], on 04/30/2021, per patient report. 5. Hypertension. Blood pressure controlled. On metoprolol. 6. Hyperlipidemia. On statin. 7. Type 2 diabetes. On Lantus, sliding-scale insulin. 8. PVD. No ABIs or AIF available for review. 9. Tobacco use. 10. Vitamin-D deficiency. 11. Leukocytosis of 16.4, follow. 12. Anemia with hemoglobin of 10.7, follow. 13. Slight hyponatremia, resolved. 14. Prophylaxis. Protonix, SCDs. DESIGN ENGINEER * Balta Ahn MD - 05/02/2021 1:24 PM CST Images from the original note were not included. Critical Care Medicine Daily Progress Team: sim Subjective Interval events: NAJMA. Only complaints are [...] to the cardiac catheterization lab here at [facility] where he underwent coronary angiography via right [...] heparin, 0-33 Units/kg/hr, Last Rate: 11.601 Units/kg/hr (05/01/212203) sodium chloride 0.9%, 50 mL/hr, Last Rate: [...] 04/30/21 Inserted by: inserted by urologist at [facility] Placed by External Staff?: Other hospital Catheter Type: Straight-tip Catheter Balloon Size: 10 mL Urine Returned: (c) Yes Number of days: 2 Vent settings: I/O: Date 05/01/21699 - 05/02/21 0659 05/02/21 07 - 05/03/21 0659 Shift 5758-7206 8611-8374 24 Hour Total 2884-0478 5743-1966 24 Hour Total INTAKE P.O. 500 500 [...] code Balta Ahn MD EM-Critical Care Fellow [phone] Cosigned by Frank Dugan MD at 05/02/2021 2:[address] DESIGN ENGINEER DESIGN ENGINEER DESIGN ENGINEER * Joe Weinberg MD - 05/02/2021 12:42 PM CST [facility] Daily Progress SUBJECTIVE: Very stressed C/o l [...] 1103 05/02/21 0450 05/02/21 0443 05/01/21 2219 05/01/212218 SODIUM mmol/L -- -- 135 < > [...] will discontinue before surgery Joe Weinberg MD, [facility] [phone] [facility] 05/02/2021 12:42 PM DESIGN ENGINEER DESIGN ENGINEER documented in this encounter H&P Notes * [...] substernal, and accompaniedwith sweating. He went to [place] ED with EKG changes concerning for STEMI. He was taken to the lab support technician yesterday by Dr. Clayton and was found to have re-thrombosis of his previous LAD stents. Dr. Clayton was able to open them but unable to stent this. They placed a IABP and he was admitted to the CVU. 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 He was transferred to [facility] for STEMI and taken to the lab support technician where his LAD and diagonalstents were found [...] Units, 0.15 Units/kg, subcutaneous,Nightly, 13 Units at 05/01/21 2147 ??? insulin [...] mg, oral, Q4H PRN, 5 mg at 05/02/21 0838 ??? pantoprazole [...] Units 05/02/21 0831 05/02/21 0450 05/02/21 0443 05/01/21 2219 05/01/21 [...] 100% proximal stenosis of the LAD with sikh of flow. An IABP was placed. He [...] to proceed. Rhina Granados MD Cardiothoracic Surgery [facility] Thank you for allowing us to participate in the care of this patient. We will continue to follow. If you have any questions, please don't hesitate to call. Ainsley Rashid MD Cardiothoracic Surgery [facility] [phone] 110:13 AM DESIGN ENGINEER DESIGN ENGINEER DESIGN ENGINEER DESIGN ENGINEER * Erika Suárez NP - 05/02/2021 9:54 AM CST History and Physical CHIEF COMPLAINT No chief complaint on file. HPI Patient is a 60 y.o. male with past medical history of CAD status post AZ, hypertension, hyperlipidemia, PVD, COPD and tobacco abuse who presented to the hospital due to chest pain. Per review of therecords patient had bladder surgery yesterday at [facility]. He was dischargedhome but returned back to the hospital due to dizziness. He states he was trying to go home when hesuddenly felt dizzy and broke out in a sweat. After arrival to [facility] patient complained chest pain and repeat EKG was performed which showed ST elevation in anterior chest leads. Due to the above patient was transferred to [facility] for further evaluation and care. On [...] History: Diagnosis Date ??? COPD CAD s/p AZ 2006 & 2009 ??? Diabetes mellitus (HCC) [...] the diagonal 04/30/21 PCI/PTCA 04/29/2021 Bladder surgery 2/2 bladder tumor at [facility] ALLERGIES Allergies Allergen Reactions ??? Metoclopramide FAMILY [...] illicit street drugs. 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 Manager Customer variances may occur. Despite proofreading, typographical errors may occur. Cosigned by Lulú Garcia MD at 05/03/2021 8:[address] DESIGN ENGINEER DESIGN ENGINEER DESIGN ENGINEER DESIGN ENGINEER documented in this encounter Procedure Notes * Marek Mei NP - 05/30/2021 8:03 PM CSTAssociated Order(s): Critical Care Post-Procedure Diagnose(s): ST elevation myocardial infarction (STEMI), unspecified artery (HCC) Critical Care Performed by: Marek Mei NP Authorized by: Marke Mei NP CRITICAL CARE: Team: [facility] Shift: PM Level of Billing: Critical [...] plan with the ICU team and other medical/program evaluation consultant staff, making frequent assessments and decisions [...] Austin Hoffman MD at 06/09/2021 1:[address] DESIGN ENGINEER DESIGN ENGINEER DESIGN ENGINEER * Erika Mayer NP - 05/30/2021 7:00 [...] plan with the ICU team and other medical/program evaluation consultant staff, making frequent assessments and decisions [...] Trinh Yeh MD at 06/01/2021 8:[address] DESIGN ENGINEER DESIGN ENGINEER DESIGN ENGINEER * Marek Mei NP - 05/29/2021 8:51 PM CSTAssociated Order(s): Critical Care Post-Procedure Diagnose(s): ST elevation myocardial infarction (STEMI), unspecified artery (HCC) Critical Care Performed by: Marek Mei NP Authorized by: Marek Mei NP CRITICAL CARE: Team: CHENG Shift: PM [...] plan with the ICU team and other medical/program evaluation consultant staff, making frequent assessments and decisions [...] Austin Hoffman MD at 06/09/2021 1:[address] DESIGN ENGINEER DESIGN ENGINEER DESIGN ENGINEER * Elena Kelly NP - 05/29/2021 7:00 AM CSTAssociated Order(s): Critical Care Post-Procedure Diagnose(s): COVID; Acute respiratory failure due to COVID-19 (HCC) Critical Care Performed by: Elena Kelly NP Authorized by: Elena Kelly NP CRITICAL CARE: Team: CHENG Shift: AM [...] plan with the ICU team and other medical/program evaluation consultant staff, making frequent assessments and decisions [...] Dominique Wilkinson MD at 05/29/2021 8:[address] DESIGN ENGINEER DESIGN ENGINEER DESIGN ENGINEER * Rosy Muñoz NP - 05/28/2021 10:32 [...] plan with the ICU team and other medical/program evaluation consultant staff, making frequent assessments and decisions [...] Austin Hoffman MD at 06/09/2021 1:[address] DESIGN ENGINEER DESIGN ENGINEER DESIGN ENGINEER * Alejandro Gonzalez NP - 05/28/2021 11:04 [...] plan with the ICU team and other medical/program evaluation consultant staff, making frequent assessments and decisions [...] spent time documenting in the medical record DESIGN ENGINEER * Rosy Muñoz NP - 05/27/2021 8:35 [...] plan with the ICU team and other medical/program evaluation consultant staff, making frequent assessments and decisions [...] Austin Hoffman MD at 06/09/2021 1:[address] DESIGN ENGINEER DESIGN ENGINEER DESIGN ENGINEER DESIGN ENGINEER * Alejandro Gonzalez NP - 05/27/2021 2:44 [...] plan with the ICU team and other medical/program evaluation consultant staff, making frequent assessments and decisions [...] Dominique Wilkinson MD at 05/28/2021 8:[address] DESIGN ENGINEER DESIGN ENGINEER DESIGN ENGINEER * Frank Dugan MD - 05/26/2021 9:59 PM CSTAssociated Order(s): Critical Care Post-Procedure Diagnose(s): Chronic obstructive pulmonary disease, unspecified COPD type ([facility]); Pneumonia due to COVID-19 virus; Acute hypoxemic respiratory failure due to COVID-19 (CMS/HCC) ([facility]); S/P CABG x 4; ST elevation myocardial infarction involving left circumflex coronary artery ([facility]) Critical Care Performed by: Frank Dugan MD Authorized by: Frank Dugan MD CRITICAL CARE: Team: BISHOP Shift: PM Level [...] plan with the ICU team and other medical/program evaluation consultant staff, making frequent assessments and decisions [...] from bedside monitors, laboratory results, and imaging DESIGN ENGINEER * Rosy Muñoz NP - 05/26/2021 4:37 [...] plan with the ICU team and other medical/program evaluation consultant staff, making frequent assessments and decisions [...] Dominique Wilkinson MD at 05/26/2021 7:[address] DESIGN ENGINEER DESIGN ENGINEER DESIGN ENGINEER * Frank Dugan MD - 05/25/2021 9:14 PM CSTAssociated Order(s): Critical Care Post-Procedure Diagnose(s): Chronic obstructive pulmonary disease, unspecified COPD type ([facility]); Pulmonary edema with congestive heart failure (CMS/[facility]) ([facility]); Pneumonia due to COVID-19 virus; Acute hypoxemic respiratory failure due to COVID-19 ([facility]) ([facility]); S/P CABG x 4 Critical Care Performed by: Frank Dugan MD Authorized by: Frank Dugan MD CRITICAL CARE: Team: NE Shift: PM Level of Billing: Critical Care [...] plan with the ICU team and other medical/program evaluation consultant staff, making frequent assessments and decisions [...] from bedside monitors, laboratory results, and imaging DESIGN ENGINEER DESIGN ENGINEER * Rosy Muñoz NP - 05/25/2021 4:03 [...] plan with the ICU team and other medical/program evaluation consultant staff, making frequent assessments and decisions [...] Dominique Wilkinson MD at 05/26/2021 7:[address] DESIGN ENGINEER DESIGN ENGINEER DESIGN ENGINEER * Frank Dugan MD - 05/24/2021 11:38 PM CSTAssociated Order(s): Critical Care Post-Procedure Diagnose(s): Type 2 diabetes mellitus with other specified complication, without long-term current use of insulin ([facility]); Chronic obstructive pulmonary disease, unspecified COPD type ([facility]); Pneumonia due to COVID-19 virus; Acute hypoxemic respiratory failure due to COVID-19 (CMS/HCC) ( [facility]); S/P CABG x 4; ST elevation myocardial infarction involving left circumflex coronary artery ([facility]) Critical Care Performed by: Frank Dugan [...] plan with the ICU team and other medical/program evaluation consultant staff, making frequent assessments and decisions [...] spent time documenting in the medical record DESIGN ENGINEER * Silviano Huddleston NP - 05/24/2021 1:50 [...] plan with the ICU team and other medical/program evaluation consultant staff, making frequent assessments and decisions [...] Dominique Wilkinson MD at 05/25/2021 10:[address] DESIGN ENGINEER DESIGN ENGINEER DESIGN ENGINEER * Frank Dugan MD - 05/23/2021 8:57 PM CSTAssociated Order(s): Critical Care Post-Procedure Diagnose(s): ST elevation myocardial infarction involving left anterior descending (LAD) coronary artery ([facility]); Chronic obstructive pulmonary disease, unspecified COPD type ([facility]); Pneumonia due to COVID-19 virus; Acute hypoxemic respiratory failure due to COVID-19 (CMS/HCC) ([facility]); S/P CABG x 4; ST elevation myocardial infarction involving left circumflex coronary artery ([facility]) Critical Care Performed by: Frank Dugan MD Authorized by: Frank Dugan MD CRITICAL CARE: Team: BISHOP Shift: PM Level [...] plan with the ICU team and other medical/program evaluation consultant staff, making frequent assessments and decisions [...] spent time documenting in the medical record DESIGN ENGINEER * Silviano Huddleston NP - 05/23/2021 3:32 [...] plan with the ICU team and other medical/program evaluation consultant staff, making frequent assessments and decisions [...] Dominique Wilkinson MD at 05/25/2021 10:[address] DESIGN ENGINEER DESIGN ENGINEER DESIGN ENGINEER * Frank Dugan MD - 05/22/2021 11:35 [...] plan with the ICU team and other medical/program evaluation consultant staff, making frequent assessments and decisions [...] spent time documenting in the medical record DESIGN ENGINEER * Silviano Huddleston NP - 05/22/2021 7:44 [...] plan with the ICU team and other medical/program evaluation consultant staff, making frequent assessments and decisions [...] Alexandru Porter MD at 05/29/2021 6:[address] DESIGN ENGINEER DESIGN ENGINEER DESIGN ENGINEER * Jose Conti MD - 05/21/2021 11:31 [...] plan with the ICU team and other medical/program evaluation consultant staff, making frequent assessments and decisions [...] spent time documenting in the medical record DESIGN ENGINEER * Silviano Huddleston NP - 05/21/2021 8:00 [...] plan with the ICU team and other medical/program evaluation consultant staff, making frequent assessments and decisions [...] Alexandru Porter MD at 05/22/2021 1:[address] DESIGN ENGINEER DESIGN ENGINEER DESIGN ENGINEER * Jose Conti MD - 05/20/2021 11:33 [...] plan with the ICU team and other medical/program evaluation consultant staff, making frequent assessments and decisions [...] spent time documenting in the medical record DESIGN ENGINEER DESIGN ENGINEER * Silviano Huddleston NP - 05/20/2021 8:00 [...] plan with the ICU team and other medical/program evaluation consultant staff, making frequent assessments and decisions [...] Alexandru Porter MD at 05/20/2021 6:[address] DESIGN ENGINEER DESIGN ENGINEER DESIGN ENGINEER * Elena Kelly NP - 05/19/2021 7:00 [...] plan with the ICU team and other medical/program evaluation consultant staff, making frequent assessments and decisions [...] Jose Conti MD at 05/22/2021 12:[address] DESIGN ENGINEER DESIGN ENGINEER DESIGN ENGINEER * Elena Kelly NP - 05/18/2021 7:00 [...] plan with the ICU team and other medical/program evaluation consultant staff, making frequent assessments and decisions [...] Jose Conti MD at 05/19/2021 6:[address] DESIGN ENGINEER DESIGN ENGINEER DESIGN ENGINEER * Caleb Toth PA - 05/18/2021 10:32 [...] plan with the ICU team and other medical/program evaluation consultant staff, making frequent assessments and decisions [...] Alexandru Porter MD at 05/19/2021 6:[address] DESIGN ENGINEER DESIGN ENGINEER DESIGN ENGINEER * Elena Kelly NP - 05/17/2021 7:00 [...] plan with the ICU team and other medical/program evaluation consultant staff, making frequent assessments and decisions [...] Jose Conti MD at 05/18/2021 6:[address] DESIGN ENGINEER DESIGN ENGINEER DESIGN ENGINEER * Caleb Toth PA - 05/17/2021 8:04 [...] plan with the patient's team and other medical/program evaluation consultant staff. This time was in addition to and separate from care provided by other practitioners on this day of service. Cosigned by Alexandru Porter MD at 05/17/2021 6:[address] DESIGN ENGINEER DESIGN ENGINEER DESIGN ENGINEER * Jose Conti MD - 05/17/2021 3:31 [...] plan with the ICU team and other medical/program evaluation consultant staff, making frequent assessments and decisions [...] spent time documenting in the medical record DESIGN ENGINEER * Domenica Rod MD - 05/07/2021 3:37 [...] plan with the ICU team and other medical/program evaluation consultant staff, making frequent assessments and decisions [...] in the medical record Domenica Rod MD [facility] Department of Anesthesiology and Critical Care DESIGN ENGINEER * Wally Aguilar DO - 05/05/2021 11:05 [...] plan with the ICU team and other medical/program evaluation consultant staff, making frequent assessments and decisions [...] spent time documenting in the medical record DESIGN ENGINEER DESIGN ENGINEER * Frank Dugan MD - 05/05/2021 12:25 PM CSTAssociated Order(s): Critical Care Post-Procedure Diagnose(s): Gross hematuria; Primary hypertension; PVD (peripheral vascular disease) ([facility]); Type 2 diabetes mellitus with other specified complication, without long-term current use of insulin ([facility]); ST elevation myocardial infarction involving left anterior descending (LAD) coronary artery ([facility]); Chronic obstructive pulmonary disease, unspecified COPD type ([facility]) Critical Care Performed by: Frank Dugan [...] plan with the ICU team and other medical/program evaluation consultant staff, making frequent assessments and decisions [...] from bedside monitors, laboratory results, and imaging DESIGN ENGINEER * Wally Aguilar DO - 05/05/2021 2:26 [...] separate from the billed critical care time. DESIGN ENGINEER * Wally Aguilar DO - 05/04/2021 8:13 [...] plan with the ICU team and other medical/program evaluation consultant staff, making frequent assessments and decisions [...] spent time documenting in the medical record DESIGN ENGINEER * Frank Dugan MD - 05/04/2021 10:31 [...] plan with the ICU team and other medical/program evaluation consultant staff, making frequent assessments and decisions [...] from bedside monitors, laboratory results, and imaging DESIGN ENGINEER * Nalini Clayton MD - 05/04/2021 12:00 AM CST Mr. Alvarado is a 60-year-old male who presented with acute anterior wall myocardial infarction. He hada history of previous coronary artery disease and had 2 layers of stent put in his proximal and midLAD, Taxus in 2006 and Wayland in 2009. Moderate-sized diagonal was jailed by the Taxus stent and this diagonal had a stent in the ostium extending into the proximal segment also. Angiogram revealed complete occlusion of the proximal part of the LAD. After the left main was engaged with a 6-Finnish CLS 3.5 guide, a 0.014, 190 cm [...] of the diagonal. A 3.0 x 15 [place] [employer] balloon was placed in the proximal and mid segment of the LAD and inflated at 14 atmospheres. Angiogram done at this point revealed sikh of flow in the LAD and the [...] high risk of stenosis and would also skilled nursing moderate-sized diagonal vessel. Coronary artery bypass surgery [...] grafting on Tuesday. Job ID/VF Job ID: [id number] DESIGN ENGINEER * Wally Aguilar DO - 05/03/2021 7:56 [...] plan with the ICU team and other medical/program evaluation consultant staff, making frequent assessments and decisions [...] through the OR. Heparin drip to stop propulsion motor and generator repairer or OR, Integrilin to stop at 0800, [...] know what his new regimen will be. DESIGN ENGINEER * Frank Dugan MD - 05/03/2021 9:14 [...] plan with the ICU team and other medical/program evaluation consultant staff, making frequent assessments and decisions [...] from bedside monitors, laboratory results, and imaging DESIGN ENGINEER * Wally Aguilar DO - 05/02/2021 8:00 [...] plan with the ICU team and other medical/program evaluation consultant staff, making frequent assessments and decisions [...] - Heparin drip PUD - Home PPI DESIGN ENGINEER * Frank Dugan MD - 05/02/2021 2:27 PM CSTAssociated Order(s): Critical Care Post-Procedure Diagnose(s): ST elevation myocardial infarction (STEMI), unspecified artery (HCC); Gross hematuria; Hemoptysis; Primary hypertension; PVD (peripheral vascular disease) (HCC); Type 2 diabetes mellitus with other specified complication, without long-term current use of insulin (HCC) Critical Care Performed by: Frank Dugan MD Authorized by: rFank Dugan MD CRITICAL CARE: Team: CHENG Shift: [...] plan with the ICU team and other medical/program evaluation consultant staff, making frequent assessments and decisions [...] from bedside monitors, laboratory results, and imaging DESIGN ENGINEER DESIGN ENGINEER DESIGN ENGINEER * Wally Aguilar DO - 05/01/2021 8:15 [...] plan with the ICU team and other medical/program evaluation consultant staff, making frequent assessments and decisions [...] spent time documenting in the medical record DESIGN ENGINEER * Nalini Clayton MD - 05/01/2021 6:51 [...] CABG Tuesday This is a preliminary report DESIGN ENGINEER DESIGN ENGINEER * Nalini Clayton MD - 05/01/2021 12:00 [...] 50 mL balloon pump was chosen. A 6-Finnish sheath used for diagnostic catheterization was replaced with an 8- Finnish sheath. Over the balloon pump wire a 50 mL intra-aortic balloon pump was positioned in the descending aorta. Appropriate systolic augmentation and diastolic unloading was observed. The sheath was sutured with 2-0 silk. The patient tolerated the procedure well. There were no complications. Summary Successful insertion of a 50 mL balloon pump through the right femoral artery. Job ID/VF Job ID: [id number] DESIGN ENGINEER * Nalini Clayton MD - 05/01/2021 12:00 [...] and fentanyl. Procedure In modified Seldinger technique, 6-Finnish sheath was inserted in the right femoral artery. Catheterwas introduced over a flexible guidewire. Hemodynamic measurements were made and pressures were recorded before contrast was injected. Single plane left ventriculogram was recorded in 30-degree IRVING position using 36 mL of contrast injected at 12 mL/second into the left ventricle cavity. Following selective coronary catheterization using 5-Finnish John 4 right and left John 4 [...] ventricular systolic function. Job ID/VF Job ID: [id number] DESIGN ENGINEER documented in this encounter Consult Notes * Angelo Vance MD - 05/20/2021 10:00 AM CST Infectious Disease Consult Consulting Physician: HPI: Patient is a 60 y.o. male with multiple medical problems including a history of peripheral vasculardisease, COPD was initially admitted to the hospital on 05/02 for chest pain. Patient had had bladder surgery a day prior add [facility]. Patient was found to have ST elevation in the anterior chest leads he was then transferred to [facility] at that time. Patient was taken [...] 1624 ? ? al & mag hydroxide gpnmmdpvfeh-bjxhtyoiwrnevay-xbprgrrti-nystatin (MAGIC MOUTHWASH) suspension 1-1-1-1 20 mL swish & spit Q4H PRN Elena Kelly NP ??? albumin 5 % bottle 25 g 25 g intravenous Once Varsha Lee NP ??? albuterol 2.5 mg /3 mL [...] unit/mL injection 8 Units 8 Units subcutaneous Abelino Torres MD 8 Units at 05/20/21 0848 ??? [...] mg oral Daily with dinner Elena Kelly, EFREN 0.4 mg at 05/19/21 1638 Allergies: Allergies [...] 93/55 108/71 Pulse: 81 83 Resp: 19 Temp: 36.9 ??C (98.4 ??F) TempSrc: Oral [...] follow with you. Angelo Vance MD 05/20/2021 DESIGN ENGINEER * Jose Conti MD - 05/17/2021 2:28 [...] on 04/29. He was taken to the lab support technician on 04/30 where they found in-stent thrombosis [...] chloride 0.9% 100 mL IVPB 3.375 g [id number] LEAH ??? polyethylene glycol (MIRALAX) packet 17 [...] ??? acetaminophen, 650 mg, 650 mg at 05/15/211815 ? ? al & mag hydroxide tihfptrqpib-rtrawhvsqtpakjn-sctbnifwq-nystatin, 20 mL, 20 mL at ??? albuterol, 2.5 mg, 2.5 mg at 05/17/21223 ??? dextrose, 15 g OR dextrose, 250 [...] - will reassess w/ labs and cxr DESIGN ENGINEER * Sixto Fish MD - 05/13/2021 5:30 [...] post stent, hypertension, COPD got admitted to [facility] on 05/01/2021 with acute STEMI s/p [...] 2223 ? ? al & mag hydroxide yqimijsidcf-bfaylfxiengrooe-fpkckgqgf-nystatin (MAGIC MOUTHWASH) suspension 1-1-1-1 20 mL swish & spit Q4H PRN Tiana Spence NP 20 mL at 05/12/21 4887 ??? albuterol 2.5 mg /3 mL (0.083 %) nebulizer solution 2.5 mg 2.5 mg nebulization Q4H PRN (RT) Ralf Tomlinson MD ??? aspirin enteric coated tablet 81 mg 81 mg oral Daily Varsha Crowder, EFREN 81 mg at 05/13/21 0937 ??? atorvastatin [...] oral Daily Lester Batista MD12.5 mg at 05/13/2137 ??? ondansetron (ZOFRAN) injection 4 mg 4 mg intravenous Q6H PRN Rhina Granados MD ??? pantoprazole DR (PROTONIX) extended release tablet 40 mg 40 mg oral Daily Rhina Granados MD40 mg at 05/13/21935 ??? piperacillin-tazobactam (ZOSYN) 3.375 g in sodium chloride 0.9% 100 mL IVPB 3.375 g [id number] [facility] Eleonora Duarte NP 200 mL/hr at 05/13/211723 [...] flush 0.5-20 mL 0.5-20 mL intra-catheter Q8H [facility] Rhina Granados MD 10 mL at 05/13/21 172 Allergies Allergen Reactions ??? Metoclopramide Social History [...] along with you. Sixto Hurtado MD 05/13/2021 DESIGN ENGINEER * Yves Weinberg MD - 05/10/2021 5:41 PM CST Nephrology Consult [facility] Reason for Consult: hyponatremia Requesting Provider: Nalini Clayton MD Subjective Patient is a 60 y.o. male with chief complaint of CP. Reason for consult: hyponatremia HPI: 60 year old wm from [facility]. Na chronically low. 129 today and hence [...] to the cardiac catheterization lab here at [facility] where he underwent coronary angiography via right [...] ABD soft, bs pos EXT no edema SUGAR TRUCKER grossly non focal Dialysis Access Exam: NA [...] with left pleural fluid decreasing. No pneumothorax. Guadalupita-Radha catheter remainsin place Impression: Decreasing failure, atelectasis [...] with left pleural fluid decreasing. No pneumothorax. Guadalupita-Radha catheter remains in place Impression: Decreasing failure, [...] atelectasis with left pleural fluid. No pneumothorax. Guadalupita-Radha catheter remains in place Impression: Decreasing failure. No pneumothorax. Electronically signed by: Deacon Cummings M.D. XR Chest 1 View - Portable - in AM Result Date: 05/07/2021 Narrative: EXAMINATION: XR CHEST 1 VIEW DATE: 05/07/2021 3:55 AM HISTORY: 60-year-old man follow-upcardiac surgery FINDINGS:Compared with study of the previous day, postsurgical changes in the heartand mediastinum with cardiomegaly are stable. Guadalupita-Radha catheter remains in place. Left thoracostomy tube [...] Interval placement of endotracheal tube, nasogastric tube, Guadalupita-Radha catheter, left thoracostomy tube and mediastinal drain [...] Echo (TTE) Limited Result Date: 05/07/2021 Narrative: [place] [id number] Limited Echocardiogram Report Patient Name: DEEPAK ALVARADO : 1960 StudyDate: 05/07/2021 12:16:52 PM Gender: M Tech: Location: [id number] Ref.Provider: DARWINRHINA Height(Cm): 175 BSA: 2.1 Weight(Kg): 91 Heart [...] tamponade. Electronically Signed By: Gianni Francois MD, [facility] :54:[address] DESIGN ENGINEER Transthoracic Echo Complete W Doppler/CF Result Date: 05/02/2021 Narrative: [place] [address] Echocardiogram Report Patient Name: DEEPAK ALVARADO W : 1960 Study Date: 05/02/2021 8:50:02 AM Gender: M Tech: Location: [id number] Ref Provider: NALINI CLAYTONHeight(Cm): 175 BSA: 2.11 [...] valve. Electronically Signed By: Rylee Brito DO, [facility], FAISAL SEPARZA 2021-05-02 14:07:25 ROAD DESIGN ENGINEER CC: CC: CC: Assessment/Plan Principal Problem: ST [...] ? Yves Weinberg MD 5:41 PM 05/10/2021 DESIGN ENGINEER * Cristina Anaya, RD - 05/05/2021 3:51 [...] BMI (Calculated): 29.7 3 Day I/O Summary 05/030 - 05/05 0659 In: 57358 [P.O.:120; I.V.:6474] Out: 3995 [Urine:1270] Temp: 36.7 [...] medication as directed by your doctor. Call [phone] to speak with a dietitian about any diet related concerns. Recommend to follow up with outpatient nutrition counseling, ask your doctor for a referral and call [phone] to make an appointment. Nutrition Follow-Up : 05/08/[address],LD DESIGN ENGINEER * Ralf Tomlinson MD - 05/05/2021 11:15 AM CST Pulmonary Consult Reason for Consult: respiratory failure HPI: 60 yo man w COPD, DM, CAD/stents admitted 05/01/21 with chest pain. Had recent hematuria as well. Workup revealed an acute AZ. Cath showed multi-vessel CAD. Had balloon pump [...] propofol, 0-50 mcg/kg/min, Last Rate: Stopped (05/05/21 09) sodium chloride 0.9 %, 3,000 mL sodium chloride 0.9%, 20 mL/hr, Last Rate: 20 mL/hr (05/04/212308) sodium chloride 0.9%, 3-12 mL/hr PRN Meds:.??? [...] Assessment and Plan: Acute respiratory failure Acute AZ w CAD s/p CABG x 4 on 05/04/21, past hx multiple stents Cardiogenic shock Cardiomyopathy EF 40% V fib Hx COPD Anemia Infiltrates: edema v pna Recs: Optiflow, adjust as needed, may also consider bipap High risk for re-intubation Hemodynamic support abx coverage for pna Tracheal aspirate pending Scheduled bronchodilators Follow CXR Chart reviewed Discussed w RN and RT DESIGN ENGINEER * Edward Trejo DO - 05/04/2021 8:09 AM CSTAssociated Order(s): IP CONSULT TO UROLOGY; IP CONSULT TO UROLOGY Images from the original note were not included. DEPARTMENT OF SURGERY, DIVISION OF UROLOGY INPATIENT / HOSPITAL CONSULTATION Reason for Consult: blood clots occluding osorio, request CBI Requesting Physician: Dr. Evans Consulting Physician: Edward Trejo DO, MBA Subjective Deepak Alvarado is a 60 y.o. male who we have been asked to see in consultation for gross hematuria. He is admitted for cardiac workup and intervention. He is on the schedule for CABG today. Apparently had a cystoscopy with clot evacuation at [facility] about a week ago. He was told he had a tumor. I do not have these records for review. This was done by the private Urology group. He is a smoker. We have been asked to see him regarding gross hematuria which has been a persistent problem since transferred here to [facility]. The nursing staff hand irrigated him overnight [...] AM Result Value Ref Range Product code S7792S03 Unit Number [id number] Product Blood Type APOS Dispense Status CROSSMATCHED Product code C2114S22 Unit Number [id number] Product Blood Type APOS Dispense Status CROSSMATCHED Product code F2645Y06 Unit Number [id number] Product Blood Type APOS Dispense Status CROSSMATCHED Product code W8069Y42 Unit Number [id number] Product Blood Type APOS Dispense Status CROSSMATCHED [...] evacuation and transurethral resection of bladdertumor at [facility] by the private Urology group. I do not have the records available for review. I do not have pathology available for review. Plan: [address] catheter inserted by the bedside [...] have any questions. Edward Trejo DO, MBA [facility] [employer] Department of Surgery, Division of Urology Pager: [phone] 05/04/2021 8:09 AM This note was written using a voice recognition system hardware device. Please note there may be variance in spelling, grammar, and syntax because of the voice recognition system hardware. Not every sentence has been reviewed in its entirety and if there are any concerns about the above please contact Dr. Trejo directly at [phone]. DESIGN ENGINEER * Wally Aguilar DO - 05/01/2021 8:15 PM CST Images from the original note were not included. Critical Care Medicine Consult Team: [facility] Reason for Consult: Critical care status post [...] to the cardiac catheterization lab here at [facility] where he underwent coronary angiography via right [...] abnormality Replace PRN Heme: Heparin drip for AZ DVT PPX: heparin drip SCD's ID: Monitor fever curve No antibiotics for now ICU standards of care: Restraints: None Physical therapy/Activity: Bedrest with balloon pump in place Access: Intra-aortic balloon pump, peripheral IVs, Osorio Other: None Goals of care: Full code Community PM Wally Aguilar DO Section of Acute and Critical Care Surgery [facility] DESIGN ENGINEER * Nalini Clayton MD - 05/01/2021 6:49 PM CST Cardiology Consult Chart reviewed, patient examined. Discussed with care team. See dictated report DESIGN ENGINEER * Nalini Clayton MD - 05/01/2021 12:00 AM CST Mr. Alvarado is a 60-year-old male who is being seen for evaluation of acute anterior wall myocardial infarction. History of Present Illness Mr. Alvarado is a 60-year-old male who is a known patient of coronary artery disease, status post multiple stent placements in the LAD who underwent bladder surgery at [facility] yesterday. He was discharged in the morning today and while driving home developed retrosternal chest pain which he described as dull in character, moderate in severity, continuous, accompanied by sweating andshortness of breath. He went to the emergency department at [facility] and from there was transferred to this [...] diagonal. In January of 2010 he had Wayland stent placed in the LAD. The patient [...] Patient presented to the emergency department at [facility] with sudden onset of chest pain whiledriving [...] to do so. Job ID/VF Job ID: [id number] DESIGN ENGINEER documented in this encounter Nursing Notes * Inna Sorto, DEEPIKA - 06/03/2021 3:22 PM CST Patient discharged home to self care. Post CABG discharge education done. Core measures completed. BUTCHER OR SMALLGOODS MAKER Ellen Maynard from cardiology group notified of ARB missing from the discharge medications. She sayspatient to continue with carvedilol and no ARB at this time. DESIGN ENGINEER * Sal Raya RN - 06/01/2021 10:12 [...] For any questions or concerns please contact AT RN, Sal Raya DESIGN ENGINEER * Varsha William RN - 05/31/2021 6:45 PM CST Patient came from ICU via stretcher. Alert and oriented times 4. Able to make needs known. No complaints at this time. Eating dinner at this time. Call light within reach. DESIGN ENGINEER * Enrico Anthony RN - 05/25/2021 2:04 PM CST Impression: Patient evaluated by SWGIACOMO RN due to increase risk for impaired skin integrity. Marko Score: 18 Contributing history includes:CAD,AZ,CAD. Plan: Continue pressure prevention orders- Q2 turns, waffle mattress, absorbant pads, and prevalon boots. Goal: pressure relief and moisture management. DESIGN ENGINEER * Terra Spicer RN - 05/18/2021 12:27 PM CST 4 FR PICC line placed to PRIETO via the brachial vein, good blood return noted, lumen flushes freely as placement confirmed by successful 3CG System Signals. DESIGN ENGINEER * Devonte Ward RN - 05/17/2021 3:24 AM CST Second OIL HEATER INSTALLER called on patient at this time due to deteriorating oxygen sats, tachypnia, and heavy use of accessory muscles to breath. See v/s. Lung sounds course throughout left lung lobe/diminished throughout right lung lobe. Patient on 15 L high flow, satting low 90s/ high 80s. Arrived at bedside for OIL HEATER INSTALLER...Racheal WALKER, Hrai POE, charge nurse, ne RN and second 9th floor staff nurse. Dr. Lopes paged; orders received; see orders. Awaiting bed placement in CVU. OIL HEATER INSTALLER end 214 with patient on nonrebreather, awake and vss. Will follow. DESIGN ENGINEER * Devonte Ward RN - 05/17/2021 2:45 AM CST Patient transferred to CVU bed 5 at this time. All patient personal belongings out of room with patient. Dr. Lopes arrived at patient bedside. This RN, Racheal WALKER and second 9th floor director of medical staff services transferred patient via bed. Prior patient transfer, report given to Mani POE, CVU nurse. Will follow. DESIGN ENGINEER * Devonte Ward RN - 05/16/2021 10:40 PM CST OIL HEATER INSTALLER called on patient d/t low oxygen sats...83% on 10L HF; 83% on 12 L HF; 91% on 15 L HF. Patient placed on nonrebreater-sats at 97%. Hari RN, bellows charger assembler, Daniela POE, Rapid Response team, Michelle, and ne POE in patient's room. DR. Lopes paged and notified of situation; orders received for one time of Lasix 40 mg ivp only. 2305: OIL HEATER INSTALLER complete; patient currently on 10 L HF, satting 91%. Will follow. DESIGN ENGINEER DESIGN ENGINEER * Devonte Ward RN - 05/10/2021 5:50 AM CST Patient resting in bed at this time; on 6l high flow nc; will follow. DESIGN ENGINEER * Devonte Ward RN - 05/10/2021 5:48 AM CST This RN spoke to at this time; reported patient's syncopal episode; order received; willfollow. DESIGN ENGINEER * Devonte Ward RN - 05/10/2021 5:35 [...] down and patient awoke, code blue cancelled. OIL HEATER INSTALLER called, in lieu. Will follow. DESIGN ENGINEER * Enrico Anthony RN - 05/02/2021 9:29 AM CST Impression: Patient evaluated by SWAT RN due to increase risk for impaired skin integrity. Marko Score:15 Contributing history includes:CAD, AZ, and DM Plan: Continue pressure prevention orders- Q2 turns, waffle mattress, absorbant pads, and prevalon boots. Goal: Pt's skin will remain intact and free from pressure injuries. DESIGN ENGINEER * Jessica Adams RN - 05/02/2021 12:55 AM CST Pt tested negative at [facility] DESIGN ENGINEER documented in this encounter Miscellaneous Notes * Plan of Care - Mahsa Parra RN - 06/03/2021 2:28 PM CST Goals: Clinical Goals for the Shift: Comfort, safety, possible discharge home to self care today Summary:Pt educated on Stemi and discharge follow up care post CABG. DESIGN ENGINEER * Plan of Care - Inna Sorto RN - 06/03/2021 1:41 PM CST Patient discharged to selfcare with family by Dr Zelaya. IV removed and patient given discharge education. DESIGN ENGINEER * Plan of Care - Katiuska Livingston MSW - 06/03/2021 11:12 AM CST 06/03/2021 11:12 AM (CT) Katiuska Livingston: Pt is medically stable. Home o2 Walk completed. Pt does notrequire O2 at the time of discharge. IMM reviewed with pt???s , Kadi ([phone]), via phone.Pt???s stated that she will provide transportation (sisal picker time between 2 PM -3 PM). SW will be available as needed. PARKER Lopez Chief Concierge Case Management 06/03/2021 11:12 AM DESIGN ENGINEER * Plan of Care - Inna Sorto [...] perfusion and functioning will improve Outcome: Progressing DESIGN ENGINEER * Plan of Care - Jeana Ocasio RN - 06/03/2021 8:46 AM CST Spoke to Dr. Lara regarding potential discharge and home oxygen evaluation. Ok to order home o2 evaluation, order placed. Jeana Ocasio RN Case Manager [phone] DESIGN ENGINEER * Plan of Care - Azucena Hsu RN - 06/03/2021 2:21 AM CST Goals: Clinical Goals for the Shift: antibiotics, monitor for s/ of infection, reoccuring chest pain, paincontrol Summary: DESIGN ENGINEER * Plan of Regina Pollard RN - 06/02/2021 5:20 PM CST Goals: [...] perfusion and functioning will improve Outcome: Progressing DESIGN ENGINEER * Provider Query - Anibal Lara MD [...] Thank you, Rosy Leung RN, BSN Clinical Correctional Officer Lieutenant [employer] Teams: Rosy Leung Perfect[employer]: Rosy Leung [facility] NAME: Rosy Adameum Email: [email or web address] DESIGN ENGINEER * Plan of Care - Katiuska Livingston MSW - 06/02/2021 3:08 PM CST 06/02/2021 3:07 PM (CT) Katiuska Livingston: Due to COVID isolation, SW contacted pt???s room to discuss his DC plan. Pt stated that he will return home at the time of discharge and denied LTACH, SNF, inpatient rehab, and home health. SW followed up with pt???s , Geno ([phone]), via phone. Pt???s stated that we want [...] home health. SW will follow. PARKER Lopez Chief Concierge Case Management 06/02/2021 3:08 PM DESIGN ENGINEER * Plan of Care - Katiuska Livingston MSW - 06/02/2021 12:31 PM CST 06/02/2021 12:31 PM (CT) Katiuska Livingston: ABRAHAM followed up with [facility] Liaison Chiara ([phone]). Chiara stated that she is waiting on insurance authorization. Awaiting insurance authorizationfor LTAC. SW will follow. PARKER Lopez Chief Concierge Case Management 06/02/2021 12:31 PM DESIGN ENGINEER * Plan of Care - Ellen Drummond RN - 06/02/2021 2:39 AM CST Goals: Clinical Goals for the Shift: stable vital signs, monitor o2 sat ans wean o2 as needed , monitor blood glucose Summary: Problem: Health Behavior: Goal: Understanding of discharge needs will improve Outcome: Progressing Problem: Activity: Goal: Activity Intolerance will improve Outcome: Progressing DESIGN ENGINEER * Plan of Care - Suzie Meza [...] maintain adequate ventilation will improve Outcome: Progressing DESIGN ENGINEER * Plan of Care - Ellen Drummond [...] information provided will improve Outcome: Not Progressing DESIGN ENGINEER * Significant Event - Silviano Huddleston NP - 05/31/2021 12:[address] DESIGN ENGINEER ICU to Floor Transfer Plan to move patient to the 8th floor. Sign out given to Team [facility] hospitalist. Please see most recent daily progress note for detailed HPI, hospital course, and significant events. Do not hesitateto reach out via phone if any further questions/concerns. Silviano Huddleston NP Phone number to be reached at: [phone] (IRAIDA 1) Cosigned by Frank Dugan MD at 05/31/2021 2:[address] DESIGN ENGINEER DESIGN ENGINEER DESIGN ENGINEER * Plan of Care - Charan Salas RN - 05/31/2021 5:43 AM CST Goals: Clinical Goals for the Shift: stable vs, wean o2 Summary: Pt had intermittent desats overnight, O2 sats high 80s, O2 increased to 4L NC. No other acute events overnight. DESIGN ENGINEER * Plan of Care - Marcel Kaur [...] tolerated, worked with PT. No significant changes. DESIGN ENGINEER * Plan of Care - Deepak Bills [...] improve oxygenation, wean oxygen, comfort and safety. DESIGN ENGINEER * Plan of Care - Miranda Garza RN - 05/28/2021 12:[address] DESIGN ENGINEER Spoke with spouse Geno about LTACH and what it offers. We discussed locations and which ones were available in the [facility] area. She was agreeable for the closer location of [facility]. Will speak with patient vis phone after lunch. Remains on isolation for Covid at this time. Chiara at [facility] notified and will begin insurance authorization process. Miranda Garza RN BSN Lead Burner [phone] DESIGN ENGINEER * Plan of Care - Kyree Bower [...] activity intolerance will decrease Outcome: Not Progressing DESIGN ENGINEER * Plan of Neelima - Kyree Bower RN - 05/25/2021 2:45 [...] Respiratory status will improve Outcome: Not Progressing DESIGN ENGINEER * Plan of Care - Paresh Ross RN - 05/24/2021 6:[address] DESIGN ENGINEER Goals: Clinical Goals for the Shift: VSS, [...] will improve Outcome: Progressing ts trend positively DESIGN ENGINEER * Plan of Care - Qing Fernandez [...] protocol. Wean FiO2 to maintain SpO2 >92%. DESIGN ENGINEER * Plan of Care - Kyree Bower [...] care needs will improve Outcome: Not Progressing DESIGN ENGINEER * Plan of Care - Stefania Gallegos [...] tolerates the treatment well with good technique. DESIGN ENGINEER * Plan of Neelima - Leola Truong RN - 05/23/2021 5:10 [...] be avoided or minimized Outcome: Not Progressing DESIGN ENGINEER * Plan of Care - Tiana Salazar RN - 05/22/2021 5:45 PM CST Goals: Clinical Goals for the Shift: VSS, comfort and safety DESIGN ENGINEER * Plan of Care - Miranda Garza RN - 05/22/2021 1:[address] DESIGN ENGINEER Patient remains on optiflow and insulin infusion in the ICU. Alert to person and place, confused attimes. If oxygen requirements are lessened , patient may be able to qualify for LTACH. Will continue to follow patient progress. Miranda Garza RN BSN Lead Burner [phone] DESIGN ENGINEER * Plan of Care - Serenity Delgado [...] and functioning will improve Outcome: Not Progressing DESIGN ENGINEER * Plan of Care - Tiana Salazar RN - 05/21/2021 1:59 PM CST Goals: Clinical Goals for the Shift: vss, wean optiflow, pain control, comfort, safety DESIGN ENGINEER * Plan of Care - Laura Rey [...] wean optiflow, pain control, comfort, safety Summary: DESIGN ENGINEER * Plan of Care - Alexa Rivera [...] bed and HOB increased to 40 degrees. BUTCHER [employer] MAKER to bedside. Patient denies shortness of breath, breathing unlabored, O2 saturation now 95%. RT updated. Patient asking if he is at [facility] and what time it is, patient re-oriented to where he is, time, and situational details. Patient has cell phone at bedside forhim to see the time. Date on white [...] will be avoided or minimized Outcome: Progressing DESIGN ENGINEER DESIGN ENGINEER DESIGN ENGINEER * Plan of Care - Miranda Garza RN - 05/19/2021 1:[address] DESIGN ENGINEER Per chart review patient on 2 L nc today. Remain hypotensive and tachycardic. Off pressors at this time. Lasix infusion continues. Worked with therapy today and up in chair . CM/SW will continue to follow patient progress. Miranda Garza RN BSN Lead Burner [phone] DESIGN ENGINEER * Plan of Neelima - Betty Rogers RN - 05/19/2021 12:46 [...] l nc vitasl stable possible move to tele DESIGN ENGINEER * Plan of Care - Deandre Harrison RN - 05/19/2021 6:05 AM CST Goals: Clinical Goals for the Shift: Stable VS/Labs, Comfort Summary: This patient required 15L High Flow overnight. He also required restarting Levophed to keep his BP at an acceptable level. Urine output has dropped, also, although kidney function (from labs) has improved. DESIGN ENGINEER * Plan of Care - Marylu Dempsey, PT - 05/18/2021 12:58 PM CST Patient with decline in medical status with transfer to ICU. Patient progress slowed due to acute respiratory distress, but still making progress. All goals remain appropriate at this time. DESIGN ENGINEER * Plan of Care - Betty Rogers RN - 05/18/2021 7:27 AM CST Goals: Clinical Goals for the Shift: Stable VS/Labs, Comfort Summary: stable on lasix gtt, weaning levophed picc ordered today DESIGN ENGINEER * Plan of Care - Deandre Harrison RN - 05/18/2021 6:15 AM CST Goals: Clinical Goals for the Shift: Stable VS/Labs, Comfort Summary: Patient did require more Oxygen support. DESIGN ENGINEER * Plan of Care - Romeo Nagel, DEEPIKA - 05/17/2021 11:35 AM CST Goals: Clinical Goals for the Shift: discussed the plan of care for the day with patient Summary: Pt up in the chair. VSS. Weaning levophed as tolerated. DESIGN ENGINEER * Plan of Care - Deirdre Hoskins RRT - 05/17/2021 11:29 AM CST Oxygen Therapy Patient remains on oxygen titration protocol. Wean FiO2 to maintain SpO2 >92%. Patient is on 6L HFNC and has been weaned from 15L to 12L and so on. Continue to wean o2 as tolerated. DESIGN ENGINEER * Plan of Care - Shailesh Talbert RN - 05/17/2021 6:52 AM CST Goals: Clinical Goals for the Shift: RN vss condom cath Summary: levo started for hypotension DESIGN ENGINEER * Plan of Care - Devonte Ward RN - 05/17/2021 12:47 AM CST Goals: Clinical Goals for the Shift: vss; decrease in oxgyen needs; normalizing routine labs; Summary: see cares and safety DESIGN ENGINEER * Plan of Care - Samantha Heaton RN - 05/16/2021 5:21 PM CST Goals: Clinical Goals for the Shift: monitor breathing, monitor v/s, comfort, safety, repositioning Summary: DESIGN ENGINEER * Plan of Care - Morenita Ramirez [...] improve urinary status Summary: continue clinical goals DESIGN ENGINEER * Plan of Neelima - Charo Girard RN - 05/15/2021 4:11 [...] refused. worked with ot, see notes. Vss. DESIGN ENGINEER * Anesthesia Post-op Follow-up Note - Robert Duran AA - 05/15/2021 1:17 PM CST Patient: Deepak Alvarado Procedure(s): CYSTOSCOPY with clot evacuation and fulguration Patient location: [facility] Surgical Floor Last vitals: Vitals: 05/15/21 1314 BP: 107/69 Pulse: 102 Resp: 18 Temp: 37 ??C (98.6 ??F) SpO2: 90% Level of consciousness: awake, alert and oriented Post-anesthesia pain: adequate analgesia Anesthetic complications: no Patient had no pain following procedure, no nausea. Able to drink with no issues, no anesthetic complaints DESIGN ENGINEER * Plan of Care - Apryl Killian MSW - 05/15/2021 11:20 AM CST [facility] home care, and [facility] health at home care is not able to accept pt. For home health care. PARKER sent referrals for SNF to [facility] and rehab in [place], [place] for SNF. Per Nurse (Charo) in [facility] this morning. Pt. Is not ready for DC. MANAGER OF PHOTOGRAPHY will f/u. DESIGN ENGINEER * ECIN Note - Constantin PARKER Pink - 05/15/2021 11:10 AM CST Images from the original note were not included. Patient Information: Meds and Admin Active Only All Meds/Most Recent Administrations All Meds/Most Recent Administrations eptifibatide (INTEGRILIN) 0.75 mg/mL infusion [[id number]] Ordering Provider: Nalini Clayton MD Status: Completed (Past End Date/Time) Ordered On: 05/01/211754 Frequency: Continuous PRN Timestamps Action Dose / Rate Route Other Information 05/01/211754 New Bag 2 mcg/kg/min 18.29 mL/hr intravenous Performed by: Amarjit Oropeza RN Documented by: Alexa Amor RN sodium chloride 0.9% infusion [[id number]] Ordering Provider: Nalini Clayton MD Status: Completed (Past End Date/Time) Ordered On: 05/01/211757 Frequency: Continuous PRN Timestamps Action Dose / Rate Route Other Information 05/01/211726 New Bag 500 mL/hr 500 mL/hr intravenous Performed by: Amarjit Oropeza RN Documented by: Alexa Amor RN heparin in 0.45% sodium chloride 25,000 units/250 mL (100 units/mL) infusion (premix) [[id number]] Ordering Provider: Nalini Clayton MD Status: Completed (Past End Date/Time) Ordered On: 05/01/211831 Frequency: Continuous PRN Timestamps Action Dose / Rate Route Other Information 05/01/211831 New Bag 1,000 Units/hr 10 mL/hr intravenous Performed by: Amarjit Oropeza RN Documented by: Alexa Amor RN potassium chloride ER (KLOR-CON) extended release tablet 40 mEq [[id number]] Ordering Provider: Balta Ahn MD Status: Completed (Past End Date/Time) Ordered On: 05/02/21 0804 Starts/Ends: 05/02/21 0845 - 05/02/21 0838 Dose (Remaining/Total): 40 mEq (0/1) Route: oral Frequency: Once Rate/Duration: -- / -- Admin Instructions: Do not crush, chew, cut, dissolve, open or otherwise manipulate tablet/capsule. Timestamps Action Dose Route Other Information 05/02/21837 Given 40 mEq oral Performed by: Safia Raya RN Scanned Package: [id number], [id number] ondansetron (ZOFRAN) injection 4 mg [[id number]] Ordering Provider: Rhina Granados MD Status: Verified Ordered On: 05/02/211021 Start: 05/02/211020 Dose (Remaining/Total): 4 mg (--/--) Route: intravenous Frequency: Every 6 hours PRN Rate/Duration: -- / 2 Minutes (No admins scheduled or recorded for this medication) sodium chloride 0.9% IVPB 0-250 mL [[id number]] Ordering Provider: Balta Ahn MD Status: Completed [...] in sodium chloride (premix) solution 2 g [[id number]] Ordering Provider: Wally Aguilar DO Status: Completed (Past End Date/Time) Ordered On: 05/02/212232 Starts/Ends: 05/02/212314 - 05/02/21 2343 Dose (Remaining/Total): 2 g (0/1) Route: intravenous Frequency: Once Rate/Duration: -- / 60 Minutes Admin Instructions: Room temperature only Line Med Link Info Comment Peripheral IV 05/01/21 20 G Right Antecubital 05/02/212242 by Jessica Adams RN -- Timestamps Action Dose / Duration Route Other Information 05/02/212242 New Bag 2 g 60 Minutes intravenous Performed by: Jessica Adams RN Scanned Package: [id number] potassium chloride ER (KLOR-CON) extended release tablet 40 mEq [[id number]] Ordering Provider: Wally Aguilar DO Status: Completed (Past End Date/Time) Ordered On: 05/02/212232 Starts/Ends: 05/02/212314 - 05/02/212241 Dose (Remaining/Total): 40 mEq (0/1) Route: oral Frequency: Once Rate/Duration: -- / -- Admin Instructions: Do not crush, chew, cut, dissolve, open or otherwise manipulate tablet/capsule. Timestamps Action Dose Route Other Information 05/02/212241 Given 40 mEq oral Performed by: Jessica Adams RN Scanned Package: [id number], [id number] diazePAM (VALIUM) injection 5 mg [[id number]] Ordering Provider: Nimesh Evans MD Status: Completed (Past End Date/Time) Ordered On: 05/04/21 07 Starts/Ends: 05/04/21744 - 05/04/21 0746 Dose (Remaining/Total): 5 mg (0/1) Route: intravenous Frequency: Once Rate/Duration: -- / 1 Minutes Timestamps Action Dose / Duration Route Other Information 05/04/21744 Given 5 mg 1 Minutes intravenous Performed by: Sandra Farmer RN Scanned Package: [id number] magnesium sulfate 4 g/100 mL in water (premix) 4 g [[id number]] Ordering Provider: Rhina Granados MD Status: Completed (Past End Date/Time) Ordered On: 05/04/21 0716 Starts/Ends: 05/04/21 0800 - 05/04/21 0948 Dose (Remaining/Total): 4 g (0/1) Route: intravenous Frequency: Once Rate/Duration: -- / 90 Minutes Timestamps Action Dose / Duration Route Other Information 05/04/21 0818 New Bag 4 g 90 Minutes intravenous Performed by: Sandra Farmer RN Scanned Package: 49738-696-36 sodium chloride 0.9% irrigation 1,000 mL [[id number]] Ordering Provider: Edward Trejo DO Status: Completed (Past End Date/Time) Ordered On: 05/04/2136 Starts/Ends: 05/04/21 1015 - 05/04/2136 Dose (Remaining/Total): 1,000 mL (0/1) Route: irrigation Frequency: Once Rate/Duration: -- / -- Timestamps Action Dose Route Other Information 05/04/21935 Given 1,000 mL irrigation Performed by: Tereza Encinas RN Scanned Package: 1708-2601-97 diazePAM (VALIUM) injection 5 mg [[id number]] Ordering Provider: Frank Dugan MD Status: Completed (Past End Date/Time) Ordered On: 05/04/21951 Starts/Ends: 05/04/21 1030 - 05/04/21 0953 Dose (Remaining/Total): 5 mg (0/1) Route: intravenous Frequency: Once Rate/Duration: -- / 1 Minutes Timestamps Action Dose / Duration Route Other Information 05/04/21951 Given 5 mg 1 Minutes intravenous Performed by: Tereza Encinas RN lidocaine (GLYDO) 2 % jelly 200 mg [[id number]] Ordering Provider: Frank Dugan MD Status: Completed (Past End Date/Time) Ordered On: 05/04/21 1023 Starts/Ends: 05/04/21 1100 - 05/04/21 111 Dose (Remaining/Total): 10 mL (0/1) Route: urethral Frequency: Once Rate/Duration: -- / -- Timestamps Action Dose Route Other Information 05/04/21 111 Given 200 mg urethral Performed by: Tereza Encinas RN Scanned Package: [address]-6 electrolyte-A (PLASMA-LYTE) bolus [[id number]] Ordering Provider: Rhina Granados MD Status: Completed (Past End Date/Time) Ordered On: 05/04/211454 Frequency: Continuous PRN Timestamps Action Dose Route / Site Other Information 05/04/211454 New Bag 1,000 mL irrigation Surgical Site Performed by: Rhina Granados MD Documented by: Jess Hanley, DEEPIKA sodium chloride 0.9% flush 0.5-20 mL [[id number]] Ordering Provider: Rhina Granados MD Status: Verified Ordered On: 05/04/212112 Start: 05/04/212199 Dose (Remaining/Total): 0.5-20 mL (--/--) Route: intra-catheter Frequency: Every 8 hours scheduled Rate/Duration: -- / -- Admin Instructions: Flush volume based on line type and size. Timestamps Action Dose Route Other Information 05/15/21653 Given 10 mL intra-catheter Performed by: Gabino Orantes RN Scanned Package: [id number] albumin 5 % bottle 25 g [[id number]] Ordering Provider: Rhina Granados MD Status: Completed (Past End Date/Time) Ordered On: 05/04/212112 Starts/Ends: 05/04/212144 - 05/04/212144 Dose (Remaining/Total): 25 g (0/1) Route: intravenous Frequency: Once Rate/Duration: -- / -- Timestamps Action Dose Route Other Information 05/04/212144 Given 25 g intravenous Performed by: Betty Rogers RN Scanned Package: [address]-4 docusate sodium (COLACE) capsule 100 mg [[id number]] Ordering Provider: Rhina Granados MD Status: Dispensed Ordered On: 05/04/212112 Start: 05/05/21899 Dose (Remaining/Total): 100 mg (--/--) Route: oral Frequency: 2 times daily Rate/Duration: -- / -- Admin Instructions: If able to swallow medications. Hold for diarrhea. Timestamps Action Dose Route Other Information 05/15/21 0944 Given 100 mg oral Performed by: Charo Girard RN Scanned Package: [id number] vancomycin 1500 mg/250 mL in sodium chloride 0.9% (premix) 1,500 mg [[id number]] Ordering Provider: Rhina Granados MD Status: Completed (Past End Date/Time) Ordered On: 05/04/212112 Starts/Ends: 05/05/210 - 05/06/21 0341 Dose (Remaining/Total): 1,500 mg (0/3) Route: intravenous Frequency: Every 12 hours Rate/Duration: -- / 90 Minutes Admin Instructions: Start 12 hours after pre-operative dose. Line Med Link Info Comment Introducer 05/04/21 Right Internal jugular 05/05/21 133 by Yecenia Michaels RN -- Timestamps Action Dose / Duration Route Other Information 05/06/21 0211 New Bag 1,500 mg 90 Minutes intravenous Performed by: Vanessa Holt RN Scanned Package: 18329-958-60, 5946-6458-70 magnesium sulfate 2 g/50 mL in water (premix) 2 g [[id number]] Ordering Provider: Rhina Granados MD Status: Completed (Past End Date/Time) Ordered On: 05/04/212140 Starts/Ends: 05/04/212214 - 05/04/21 230 Dose (Remaining/Total): 2 g (0/1) Route: intravenous Frequency: Once Rate/Duration: -- / 60 Minutes Timestamps Action Dose / Duration Route Other Information 05/04/212199 New Bag 2 g 60 Minutes intravenous Performed by: Betty Rogers RN Scanned Package: 54310-728-94 calcium gluconate 2 g/100 mL in sodium chloride (premix) solution 2 g [[id number]] Ordering Provider: Rhina Granados MD Status: Completed (Past End Date/Time) Ordered On: 05/04/212145 Starts/Ends: 05/04/212229 - 05/05/21 0023 Dose (Remaining/Total): 2 g (0/1) Route: intravenous Frequency: Once Rate/Duration: -- / 60 Minutes Admin Instructions: Room temperature only Timestamps Action Dose / Duration Route Other Information 05/04/21 2323 New Bag 2 g 60 Minutes intravenous Performed by: Betty Rogers RN Scanned Package: 76383-587-21 calcium gluconate 2 g/100 mL in sodium chloride (premix) solution 2 g [[id number]] Ordering Provider: Rhina Granados MD Status: Completed (Past End Date/Time) Ordered On: 05/05/21 0028 Starts/Ends: 05/05/21 0100 - 05/05/21 0226 Dose (Remaining/Total): 2 g (0/1) Route: intravenous Frequency: Once Rate/Duration: -- / 60 Minutes Admin Instructions: Room temperature only Timestamps Action Dose / Duration Route Other Information 05/05/21 0126 New Bag 2 g 60 Minutes intravenous Performed by: Betty Rogers RN Scanned Package: 14062-705-66 magnesium sulfate 2 g/50 mL in water (premix) 2 g [[id number]] Ordering Provider: Rhina Granados MD Status: Completed (Past End Date/Time) Ordered On: 05/05/21 0514 Starts/Ends: 05/05/21 0545 - 05/05/21 0718 Dose (Remaining/Total): 2 g (0/1) Route: intravenous Frequency: Once Rate/Duration: -- / 60 Minutes Timestamps Action Dose / Duration Route Other Information 05/05/21617 New Bag 2 g 60 Minutes intravenous Performed by: Betty Rogers RN Scanned Package: 89795-123-93 calcium gluconate 2 g/100 mL in sodium chloride (premix) solution 2 g [[id number]] Ordering Provider: Wally Aguilar DO Status: Completed (Past End Date/Time) Ordered On: 05/05/21 0520 Starts/Ends: 05/05/21 06 - 05/05/21 0718 Dose (Remaining/Total): 2 g (0/1) Route: intravenous Frequency: Once Rate/Duration: -- / 60 Minutes Admin Instructions: Room temperature only Timestamps Action Dose / Duration Route Other Information 05/05/2118 New Bag 2 g 60 Minutes intravenous Performed by: Betty Rogers RN Scanned Package: 60232-303-95 ketorolac (TORADOL) injection 30 mg [[id number]] Ordering Provider: Rhina Granados MD Status: Completed (Past End Date/Time) Ordered On: 05/05/211753 Starts/Ends: 05/05/21 1830 - 05/06/211154 Dose (Remaining/Total): 30 mg (0/4) Route: intravenous Frequency: Every 6 hours Rate/Duration: -- / -- Admin Instructions: For Adult IV push, administer over 15 seconds Line Med Link Info Comment Introducer 05/04/21 Right Internal jugular 05/05/211837 by Yecenia Michaels RN -- Timestamps Action Dose Route Other Information 05/06/211154 Given 30 mg intravenous Performed by: Yecenia Michaels RN Scanned Package: 43661-362-52 sodium chloride 0.9% 0.9% infusion - ADS Override Pull [[id number]] Status: Completed (Past End Date/Time) Ordered On: 05/06/21907 Starts/Ends: 05/06/21 0908 - 05/06/21 09 Dose (Remaining/Total): -- (0/1) Route: -- Frequency: -- Rate/Duration: -- / -- Admin Instructions: Yecenia Michaels: cabinet override Note to pharmacy: Yecenia Michaels: cabinet override Timestamps Action Dose Route / Site / Linked Line Other Information 05/06/21 09 New Bag 500 mL -- Performed by: Yecenia Michaels RN Scanned Package: [id number] fentaNYL (SUBLIMAZE) preservative free injection 50 mcg [[id number]] Ordering Provider: Rhina Granados MD Status: Completed (Past End Date/Time) Ordered On: 05/06/214 Starts/Ends: 05/06/21 1200 - 05/06/211127 Dose (Remaining/Total): 50 mcg (0/1) Route: intravenous Frequency: Once Rate/Duration: -- / -- Timestamps Action Dose Route Other Information 05/06/211127 Given 50 mcg intravenous Performed by: Yecenia Michaels RN Scanned Package: 68829-042-04 calcium gluconate 2 g/100 mL in sodium chloride (premix) solution 2 g [[id number]] Ordering Provider: Rhina Granados MD Status: Completed (Past End Date/Time) Ordered On: 05/06/21 1444 Starts/Ends: 05/06/21 1515 - 05/06/21 162 Dose (Remaining/Total): 2 g (0/1) Route: intravenous Frequency: Once Rate/Duration: -- / 60 Minutes Admin Instructions: Room temperature only Line Med Link Info Comment Introducer 05/04/21 Right Internal jugular 05/06/21 152 by eYcenia Michaels RN -- Timestamps Action Dose / Duration Route Other Information 05/06/21 152 New Bag 2 g 60 Minutes intravenous Performed by: Yecenia Michaels RN Scanned Package: 87015-013-74 potassium chloride 40 mEq/100 mL in sterile water (premix) 40 mEq [[id number]] Ordering Provider: Rhina Granados MD Status: Completed (Past End Date/Time) Ordered On: 05/06/21 144 Starts/Ends: 05/06/21 151 - 05/06/21 1921 Dose (Remaining/Total): 40 mEq (0/1) Route: intravenous Frequency: Once Rate/Duration: 25 mL/hr / 4 Hours Admin Instructions: Central line only Line Med Link Info Comment Introducer 05/04/21 Right Internal jugular 05/06/21 152 by Yecenia Michaels RN -- Timestamps Action Dose / Rate / Duration Route Other Information 05/06/21 152 New Bag 40 mEq 25 mL/hr 4 Hours intravenous Performed by: Yecenia Michaels RN Scanned Package: 9514-6091-[address] (PROTONIX) extended release tablet 40 mg [[id number]] Ordering Provider: Rhina Granados MD Status: Dispensed Ordered On: 05/06/21 1456 Start: 05/07/21 0900 Dose (Remaining/Total): 40 mg (--/--) Route: oral Frequency: Daily Rate/Duration: -- / -- Admin Instructions: Do not crush, chew, cut, dissolve, open or otherwise manipulate tablet/capsule. Timestamps Action Dose Route Other Information 05/15/21 0945 Given 40 mg oral Performed by: Charo Girard RN Scanned Package: 14294-778-32 potassium chloride ER (KLOR-CON) extended release tablet 30 mEq [[id number]] Ordering Provider: Wally Aguilar DO Status: Completed [...] Performed by: Romeo Nagel RN Scanned Package: 1628-6759-93, 4685-4466-54 magnesium sulfate 2 g/50 mL in water (premix) 2 g [[id number]] Ordering Provider: Wally Aguilar DO Status: Completed [...] Performed by: Paresh Tobias RN Scanned Package: 60083-987-14 enoxaparin (LOVENOX) syringe 40 mg [[id number]] Ordering Provider: Rhina Granados MD Status: Dispensed Ordered On: 05/07/21 0805 Start: 05/07/21 2100 Dose (Remaining/Total): 40 mg (--/--) Route: subcutaneous Frequency: Daily (for enoxaparin) Rate/Duration: -- / -- Timestamps Action Dose Route / Site Other Information 05/10/21 2141 Given 40 mg subcutaneous Right Lower Abdomen Performed by: Devonte Ward RN Scanned Package: 37085-766-64 magnesium sulfate 2 g/50 mL in water (premix) 2 g [[id number]] Ordering Provider: Nimesh Evans MD Status: Completed (Past End Date/Time) Ordered On: 05/07/21 0810 Starts/Ends: 05/07/21 0845 - 05/07/21 1059 Dose (Remaining/Total): 2 g (0/1) Route: intravenous Frequency: Once Rate/Duration: -- / 60 Minutes Timestamps Action Dose / Duration Route Other Information 05/07/21 0959 New Bag 2 g 60 Minutes intravenous Performed by: Romeo Nagel RN Scanned Package: 36818-019-42 metOLazone (ZAROXOLYN) tablet 10 mg [[id number]] Ordering Provider: Laly Lopes MD Status: Completed (Past End Date/Time) Ordered On: 05/07/21822 Starts/Ends: 05/07/21 09 - 05/07/21 0958 Dose (Remaining/Total): 10 mg (0/1) Route: oral Frequency: Once Rate/Duration: -- / -- Timestamps Action Dose Route Other Information 05/07/21 0958 Given 10 mg oral Performed by: Romeo Nagel RN Scanned Package: 6655-1082-67 atorvastatin (LIPITOR) tablet 80 mg [[id number]] Ordering Provider: Rhina Granados MD Status: Dispensed Ordered On: 05/07/21 1001 Start: 05/07/21 1000 Dose (Remaining/Total): 80 mg (--/--) Route: oral Frequency: Nightly Rate/Duration: -- / -- Timestamps Action Dose Route Other Information 05/14/212207 Given 80 mg oral Performed by: Gabino Orantes RN Scanned Package: 9526-8451-98 sodium chloride 0.9% 0.9% infusion - ADS Override Pull [[id number]] Status: Completed (Past End Date/Time) Ordered On: [...] g/50 mL in water (premix) 2 g [[id number]] Ordering Provider: Nimesh Evans MD Status: Completed (Past End Date/Time) Ordered On: 05/08/21 0802 Starts/Ends: 05/08/21 0845 - 05/08/21 0950 Dose (Remaining/Total): 2 g (0/1) Route: intravenous Frequency: Once Rate/Duration: -- / 60 Minutes Timestamps Action Dose / Duration Route Other Information 05/08/21 0850 New Bag 2 g 60 Minutes intravenous Performed by: Romeo Nagel RN Scanned Package: 59084-519-88 guaiFENesin ER (MUCINEX) extended release tablet 600 mg [[id number]] Ordering Provider: Tiana Spence NP Status: Dispensed Ordered On: 05/08/21 1621 Start: 05/08/21 2100 Dose (Remaining/Total): 600 mg (--/--) Route: oral Frequency: 2 times daily Rate/Duration: -- / -- Admin Instructions: Do not crush, chew, cut, dissolve, open or otherwise manipulate tablet/capsule. Timestamps Action Dose Route Other Information 05/15/21 0944 Given 600 mg oral Performed by: Charo Girard RN Scanned Package: [id number] albuterol 2.5 mg /3 mL (0.083 %) nebulizer solution 2.5 mg [[id number]] Ordering Provider: Ralf Tomlinson MD Status: Dispensed Ordered On: 05/09/21 0508 Start: 05/09/21 0515 Dose (Remaining/Total): 2.5 mg (--/--) Route: nebulization Frequency: Every 4 hours PRN (incident response manager) Rate/Duration: -- / -- (No admins scheduled or recorded for this medication) metOLazone (ZAROXOLYN) tablet 10 mg [[id number]] Ordering Provider: Rhina Granados MD Status: Completed (Past End Date/Time) Ordered On: 05/09/21912 Starts/Ends: 05/09/21 0945 - 05/09/21 113 Dose (Remaining/Total): 10 mg (0/1) Route: oral Frequency: Once Rate/Duration: -- / -- Timestamps Action Dose Route Other Information 05/09/21 113 Given 10 mg oral Performed by: Hyacinth Hurt RN Scanned Package: 2041-7217-05 acetaminophen (TYLENOL) tablet 650 mg [[id number]] Ordering Provider: Eleonora Duarte NP Status: Dispensed Ordered On: 05/09/21914 Start: 05/09/21914 Dose (Remaining/Total): 650 mg (--/--) Route: oral Frequency: Every 6 hours PRN Rate/Duration: -- / -- Timestamps Action Dose Route Other Information 05/14/21 2231 Given 650 mg oral Performed by: Gabino Orantes RN Scanned Package: 46405-307-63, 11721-880-77 al & mag hydroxide zlptlslrpve-wuhutgfoihgynna-heuvqkrbw-nystatin (MAGIC MOUTHWASH) suspension 1-1-1-1 [[id number]] Ordering Provider: Tiana Spence NP Status: Verified Ordered On: 05/09/21 111 Start: 05/09/21 111 Dose (Remaining/Total): 20 mL (--/--) Route: swish & spit Frequency: Every 4 hours PRN Rate/Duration: -- / -- Timestamps Action Dose Route Other Information 05/12/21 1457 Given 20 mL swish & spit Performed by: Cale Bender RN polyethylene glycol (MIRALAX) packet 17 g [[id number]] Ordering Provider: Rhina Granados MD Status: Dispensed Ordered On: 05/09/21 1124 Start: 05/09/21 2100 Dose (Remaining/Total): 17 g (--/--) Route: oral Frequency: 2 times daily Rate/Duration: -- / -- Timestamps Action Dose Route Other Information 05/15/21 0949 Given 17 g oral Performed by: Charo Girard RN Scanned Package: 29040-195-78 albumin 5 % bottle 25 g [[id number]] Ordering Provider: Rhina Granados MD Status: Completed (Past End Date/Time) Ordered On: 05/10/21 05 Starts/Ends: 05/10/2130 - 05/10/21 06 Dose (Remaining/Total): 25 g (0/1) Route: intravenous [...] Performed by: Devonte Ward RN Scanned Package: [address]-4 piperacillin-tazobactam (ZOSYN) 3.375 g in sodium chloride 0.9% 100 mL IVPB [[id number]] Ordering Provider: Eleonora Duarte NP Status: Dispensed [...] Performed by: Gabino Orantes RN Scanned Package: 4473-5285-82, 77669-666-68 potassium chloride ER (KLOR-CON) extended release tablet 20 mEq [[id number]] Ordering Provider: Eleonora Duarte NP Status: Dispensed Ordered On: 05/10/21 1230 Start: 05/10/21 2100 Dose (Remaining/Total): 20 mEq (--/--) Route: oral Frequency: 2 times daily Rate/Duration: -- / -- Admin Instructions: Do not crush, chew, cut, dissolve, open or otherwise manipulate tablet/capsule. Timestamps Action Dose Route Other Information 05/15/21 0945 Given 20 mEq oral Performed by: Charo Girard RN aspirin enteric coated tablet 81 mg [[id number]] Ordering Provider: Varsha Crowder NP Status: Dispensed Ordered On: 05/11/21 1117 Start: 05/12/21 0900 Dose (Remaining/Total): 81 mg (--/--) Route: oral Frequency: Daily Rate/Duration: -- / -- Admin Instructions: Do not crush, chew, cut, dissolve, open or otherwise manipulate tablet/capsule. Timestamps Action Dose Route Other Information 05/15/21 0945 Given 81 mg oral Performed by: Charo Girard RN Scanned Package: 98214-332-17 dextrose oral liquid liquid 15 g [[id number]] Ordering Provider: Anibal Lara MD Status: Verified [...] medication) dextrose (D10W) 10% bolus 250 mL [[id number]] Ordering Provider: Anibal Lara MD Status: Verified Ordered On: 05/11/211134 Start: 05/11/211133 Dose (Remaining/Total): 250 mL (--/--) Route: intravenous Frequency: Every 15 min PRN Rate/Duration: 1,000 mL/hr / 15 Minutes Admin Instructions: After treatment for hypoglycemia, recheck BG followed by treatment every 15 minutes until the BG is greater than 100 mg/dL. Then check BG 1 hour post treatment. If BG is less [id number] mg/dL, repeat Q15 minute BG checks and treatment. Call MD for each episode of hypoglycemia. (No admins scheduled or recorded for this medication) glucagon injection 1 mg [[id number]] Ordering Provider: Anibal Lara MD Status: Verified [...] (HumaLOG, ADMELOG) 100 unit/mL injection 0-10 Units [[id number]] Ordering Provider: Anibal Lara MD Status: Verified [...] Performed by: Samantha Heaton RN Scanned Package: 5729-5922-36 insulin lispro (HumaLOG, ADMELOG) 100 unit/mL injection 0-5 Units [[id number]] Ordering Provider: Anibal Lara MD Status: Verified [...] Action Dose Route / Site Other Information 05/13/21 2020 Given 1 Units subcutaneous Left Lower Abdomen Performed by: Marcel López RN Scanned Package: 1176-5831-96 acetaminophen (TYLENOL) tablet 1,000 mg [[id number]] Ordering Provider: Robby Suárez MD Status: Dispensed (Past End Date/Time) Ordered On: 05/12/21 0644 Starts/Ends: 05/12/21 0715 - 05/13/21 0715 Dose (Remaining/Total): 1,000 mg (1/1) Route: oral Frequency: Once Rate/Duration: -- / -- (No admins scheduled or recorded for this medication) QUEtiapine (SEROquel) tablet 50 mg [[id number]] Ordering Provider: Laly Lopes MD Status: Completed (Past End Date/Time) Ordered On: 05/12/21 0259 Starts/Ends: 05/12/21 0330 - 05/12/21 0305 Dose (Remaining/Total): 50 mg (0/1) Route: oral Frequency: Once Rate/Duration: -- / -- Timestamps Action Dose Route Other Information 05/12/21 0305 Given 50 mg oral Performed by: Natalie Mayer RN Scanned Package: 3380-2754-12 QUEtiapine (SEROquel) tablet 25 mg [[id number]] Ordering Provider: Varsha Crowder NP Status: Dispensed Ordered On: 05/12/21 1058 Start: 05/13/21 0900 Dose (Remaining/Total): 25 mg (--/--) Route: oral Frequency: Daily Rate/Duration: -- / -- Timestamps Action Dose Route Other Information 05/15/21 0948 Given 25 mg oral Performed by: Charo Girard RN Scanned Package: 7210-7291-96 QUEtiapine (SEROquel) tablet 50 mg [[id number]] Ordering Provider: Varsha Crowder NP Status: Dispensed Ordered On: 05/12/21 1059 Start: 05/12/21 2100 Dose (Remaining/Total): 50 mg (--/--) Route: oral Frequency: Nightly Rate/Duration: -- / -- Timestamps Action Dose Route Other Information 05/14/212208 Given 50 mg oral Performed by: Gabino Orantes RN Scanned Package: 2360-6387-69 haloperidol (HALDOL) injection 2 mg [[id number]] Ordering Provider: Varsha Crowder NP Status: Verified Ordered On: 05/12/21 1639 Start: 05/12/21 163 Dose (Remaining/Total): 2 mg (--/--) Route: intramuscular Frequency: Every 8 hours PRN Rate/Duration: -- / -- Admin Instructions: If administered IV push, administer over 5 min for adults (No admins scheduled or recorded for this medication) insulin glargine (LANTUS, SEMGLEE) 100 unit/mL injection 24 Units [[id number]] Ordering Provider: Sixto Fish MD Status: Verified Ordered On: 05/13/211733 Start: 05/13/212099 Dose (Remaining/Total): 24 Units (--/--) Route: subcutaneous Frequency: Nightly Rate/Duration: -- / -- Admin Instructions: Do not hold if NPO. Do not mix with other insulins Timestamps Action Dose Route / Site Other Information 05/14/21 2218 Given 24 Units subcutaneous Left Lower Abdomen Performed by: Gabino Orantes RN Scanned Package: 5867-8600-74 insulin lispro (HumaLOG, ADMELOG) 100 unit/mL injection 10 Units [[id number]] Ordering Provider: Sixto Fish MD Status: Verified Ordered On: 05/13/21 173 Start: 05/14/21 0800 Dose (Remaining/Total): 10 Units [...] Dose Route / Site Other Information 05/14/21 1712 Given 10 Units subcutaneous Left Upper Arm Performed by: Samantha Heaton RN Scanned Package: 8623-8059-18 metoprolol tartrate (LOPRESSOR) immediate release tablet 12.5 mg [[id number]] Ordering Provider: Eleonora Duarte NP Status: Dispensed Ordered On: 05/14/21 1043 Start: 05/14/21 2100 Dose (Remaining/Total): 12.5 mg (--/--) Route: oral Frequency: 2 times daily Rate/Duration: -- / -- Admin Instructions: HOLD FOR HR <60 and systolic <110 (No admins scheduled or recorded for this medication) furosemide (LASIX) 10 mg/mL injection 40 mg [[id number]] Ordering Provider: Laly Lopes MD Status: Verified Ordered On: 05/15/21 09 Start: 05/15/21 1600 Dose (Remaining/Total): 40 mg [...] ER (KLOR-CON) extended release tablet 40 mEq [[id number]] Ordering Provider: Tiana Spence NP Status: Completed (Past End Date/Time) Ordered On: 05/15/21940 Starts/Ends: 05/15/215 - 05/15/21947 Dose (Remaining/Total): 40 mEq (0/1) Route: oral Frequency: Once Rate/Duration: -- / -- Admin Instructions: GIVEN IN ADDITION TO SCHEDULED KCL Do not crush, chew, cut, dissolve, open orotherwise manipulate tablet/capsule. Timestamps Action Dose Route Other Information 05/15/21947 Given 40 mEq oral Performed by: Charo Girard RN Scanned Package: 8588-1019-14, 3739-1517-09 magnesium sulfate 2 g/50 mL in water (premix) 2 g [[id number]] Ordering Provider: Tiana Spence NP Status: Completed [...] 2 g 60 Minutes intravenous Performed by: Chrao Girard RN Scanned Package: 74637-218-55 , Wound Info Only Patient Lines/Drains/Airways Status Active Wound / Pressure ulcer / Jerry / Negative Pressure Wound None , Vitals Info Only Vital Signs Report 05/14 0700 05/15 0659 05/15 0700 05/15 1110 Most Recent Temp (??C) 36.4 - 37 37 37 (98.6) 05/15 741 Pulse 74 - 87 93 93 05/15 741 Resp 18 18 05/15 741 SpO2 (%) 88 - 97 90 90 05/15 741 BP 80/57 - 117/60 105/68 105/68 05/15 741 MAP (mmHg) 60 - 75 81 81 05/15 741 , Oxygen Info Only Default Flowsheet Data (most recent) Endurance Tests No documentation. Default Flowsheet Data (last 48 hours) Oxygen Row Name 05/15/21 0925 05/15/21 0741 05/15/21 0338 05/14/21 2321 05/14/21 223 Oxygen Therapy/Pulse Ox O2 Therapy Supplemental oxygen [...] Therapy/Pulse Ox SpO2 64 % 99 % DESIGN ENGINEER * Plan of Care - Gabino Orantes [...] perfusion and functioning will improve Outcome: Progressing DESIGN ENGINEER * Plan of Care - Samantha Heaton RN - 05/14/2021 3:36 PM CST Goals: Clinical Goals for the Shift: maintain NPO for possible procedure, comfort, safety, monitor breathing and V/S Summary: DESIGN ENGINEER * Op Note - Braulio Ortega MD [...] which was fulgurated and hemostasis obtained. Twenty-two Finnish [address] Osorio catheter PROCEDURE DETAILS: Patient [...] after breaking with a resectoscope loop 26 Finnish. Care was taken not to perforate the bladder.After extensive irrigation with the [place] evacuator all the clots were removed. Ureteral orifices were normal bladder showed no evidence of any tumor. Bleeding was seen from the resection site approximately 3-4 cm with left of the ureteral orifice. This was fulgurated with the loop electrode. Hemostasis was confirmed. After this we placed a 22 Finnish hematuria catheter with 10 mL in the [...] and directly participated in the entire procedure. DESIGN ENGINEER * Plan of Care - Marcel López RN - 05/14/2021 1:34 AM CST Problem: Health Behavior: Goal: Understanding of discharge needs will improve Outcome: Progressing Problem: Activity: Goal: Activity Intolerance will improve Outcome: Progressing Problem: Cardiac: Goal: Ability to achieve and maintain adequate cardiopulmonary perfusion will improve Outcome: Progressing Goals: Clinical Goals for the Shift: maintain NPO for CT Abdomen Summary: DESIGN ENGINEER * Plan of Care - Samantha Heaton RN - 05/13/2021 4:50 PM CST Goals: Clinical Goals for the Shift: maintain NPO for CT Abdomen Summary: DESIGN ENGINEER * Plan of Care - Apryl Killian MSW - 05/13/2021 10:34 AM CST MANAGER OF PHOTOGRAPHY spoke with [facility] health care this morning in regards to referral. [facility] states to MANAGER OF PHOTOGRAPHY they are not in network with pt.'s insurance. MANAGER OF PHOTOGRAPHY sent a referral to [facility]. MANAGER OF PHOTOGRAPHY will f/u. DESIGN ENGINEER * Plan of Care - Natalie Mayer [...] the Shift: VSS, comfort, safety, cardiac monitoring, DESIGN ENGINEER * Plan of Care - Apryl Killian MSW - 05/12/2021 2:44 PM CST MANAGER OF PHOTOGRAPHY called pt.'s insurance (Johann 1) ) to get home health care referrals on pt. [facility] ([facility]) and [facility] are in network with pt.'s insurance. MANAGER OF PHOTOGRAPHY sent home health care referrals to [facility]. MANAGER OF PHOTOGRAPHY will f/u. DESIGN ENGINEER * Plan of Care - Cale Bender [...] perfusion and functioning will improve Outcome: Progressing DESIGN ENGINEER * Plan of Care - Apryl Killian MSW - 05/11/2021 4:11 PM CST [facility] and [facility] are not able to accept pt. For home health due to out of service area for pt. MANAGER OF PHOTOGRAPHY will f/u. DESIGN ENGINEER * Plan of Care - Amelia Hastings RN - 05/11/2021 3:31 PM CST Home Health Consult received. [facility] Home Health Agency unable to accept due to inability to timely staff patient. CM Alexa Evans notified. DESIGN ENGINEER * Plan of Care - Apryl Killian MSW - 05/11/2021 2:35 PM CST MANAGER OF PHOTOGRAPHY met with pt. This afternoon to discuss goals of care for pt. MANAGER OF PHOTOGRAPHY voiced PT and OT are recommending SNF when DC. Pt. States he does not want SNF at all and wants to return home with his (Geno when DC. MANAGER OF PHOTOGRAPHY spoke with pt.'s (Geno ) this afternoon to discuss goals of care for pt. Geno states to MANAGER OF PHOTOGRAPHY she is agreeable for pt. To come home when DC. Lora states she is not working andher and her 2 sons will be able to provide care for pt. When DC. Lora states they are working on getting state aide. Geno voiced pt. Does not have a PCP either. MANAGER OF PHOTOGRAPHY will send referrals on pt. For home health care. DESIGN ENGINEER * Plan of Care - Sandee Paez PT - 05/11/2021 1:44 PM CST Progressing very slowly towards prior set goals. DESIGN ENGINEER * Plan of Care - Miranda Garza, DEEPIKA - 05/11/2021 8:[address] DESIGN ENGINEER CM gave handoff report to Bev POE CM on 9th Floor. Miranda Garza WIRE STITCHER MACHINE Lead Burner [phone] DESIGN ENGINEER * Plan of Care - Devonte Ward RN - 05/11/2021 4:08 AM CST Goals: Clinical Goals for the Shift: vss; decrease in bloody urine; increase in activity Summary: care plan updated in shanice/[place] DESIGN ENGINEER * Plan of Care - Charo Girard [...] pain tx and managed with prn rx. DESIGN ENGINEER * Plan of Care - Devonte Ward RN - 05/10/2021 2:57 AM CST Goals: Clinical Goals for the Shift: vss; normalizing routine labs and blood sugars; increase in activity Summary: care plan updated in cares and safety DESIGN ENGINEER * Plan of Care - Kirby Duque [...] formal employer. From this SW knowledge, the [facility] does NOT have a public short-term [...] to Patient. RN appreciative. Kirby Duque LMSW Chief Concierge - Stepdown/ ICU TUESDAY IN-HOUSE SW 05/09/2021 [facility] Case Management Dept [phone] (Direct#) [phone] (Stepdown fax#) [phone] (ICU fax#) DESIGN ENGINEER * Plan of Care - Aimee Cardenas [...] perfusion and functioning will improve Outcome: Progressing DESIGN ENGINEER * Plan of Care - Sheron Adams COTA - 05/08/2021 12:[address] DESIGN ENGINEER Problem: OT Misc Goal: OT STG - Misc 5 Description: Patient will complete chest mobilization [...] Outcome: Progressing Note: A O X 3 DESIGN ENGINEER * Plan of Care - Romeo Nagel RN - 05/08/2021 10:28 AM CST Goals: Clinical Goals for the Shift: discussed the plan of care for the day Summary: Pt up in the chair. Pt ambulated in [place]nelas. VSS. Pt transferring to 9T today DESIGN ENGINEER * Plan of Care - Qing Fernandez [...] protocol. Wean FiO2 to maintain SpO2 >92%. DESIGN ENGINEER * Plan of Care - Janet Beltran RRT - 05/08/2021 3:33 AM CST Problem: Respiratory: Goal: Ability to maintain a clear airway will improve 05/08/2021 0334 by Devin, Janet A., OIL HEATER INSTALLER Outcome: Progressing Oxygen Therapy Patient remains on [...] pt score to provide current updraft therapy. DESIGN ENGINEER * Plan of Care - Tiana Ornelas RN - 05/08/2021 2:59 [...] the Shift: Patient will remain hemodynamically stable DESIGN ENGINEER * Plan of Care - Octavia Daniel [...] perfusion and functioning will improve Outcome: Progressing DESIGN ENGINEER * Plan of Neelima - Regina Garcia RRT - 05/07/2021 7:44 [...] protocol. Wean FiO2 to maintain SpO2 >92%. DESIGN ENGINEER * Plan of Care - Colton Monte RN - 05/07/2021 1:53 AM CST Problem: Cardiac: Goal: Ability to achieve and maintain adequate cardiopulmonary perfusion will improve Outcome: Progressing Goal: Hemodynamic stability will improve Outcome: Progressing Goal: Will show no evidence of cardiac arrhythmias Outcome: Progressing Problem: Lack of Knowledge: Goal: Verbalization of understanding the information provided will improve Outcome: Progressing DESIGN ENGINEER * Plan of Care - Janet Beltran [...] pt score to provide current updraft therapy. DESIGN ENGINEER * Plan of Care - Yecenia Michaels [...] after bedrest over, weaning O2 as tolerated DESIGN ENGINEER * Plan of Care - Regina Garcia [...] pt score to provide current updraft therapy. DESIGN ENGINEER * Plan of Care - Vanessa Holt [...] and functioning will improve Outcome: Not Progressing DESIGN ENGINEER * Plan of Neelima - Janet Beltran [...] pt score to provide current updraft therapy. DESIGN ENGINEER * Plan of Care - Yecenia Michaels [...] am and is on bipap doing well. DESIGN ENGINEER * Plan of Care - Mone Lawrence [...] the Shift: wean drips, stable v/s Summary: DESIGN ENGINEER * Plan of Care - Miranda Garza RN - 05/05/2021 11:[address] DESIGN ENGINEER Patient address is [address] [place] [address]. Info sent to registration for correction. Miranda Garza RN BSN Lead Burner [phone] DESIGN ENGINEER * Plan of Care - Samra Kearns [...] pt score to provide current updraft therapy. DESIGN ENGINEER * Plan of Care - Stefania Gallegos [...] need for secretion clearance and airway patency. DESIGN ENGINEER * Plan of Care - Betty Rogers RN - 05/05/2021 3:31 AM CST Goals: Recover from cabg x 4 wean pressors and inotrops monitor bleeding Summary: dobutrex off levo at 0.12 3 prbc given will stay on vent DESIGN ENGINEER * Plan of Care - Betty Rogers RN - 05/04/2021 5:42 PM CST Goals: Clinical Goals for the Shift: CBI, comfort, surgery later today Summary: in or for cabg x 2 will return with iabp and paln to extubate and wean gtts DESIGN ENGINEER * Plan of Care - Miranda Garza RN - 05/04/2021 3:[address] DESIGN ENGINEER Attempted assessment. Patient off floor in surgery. Will continue to follow and will see patient tomorrow. Miranda Garza RN BSN Lead Burner [phone] DESIGN ENGINEER * Op Note - Rhina Granados MD - 05/04/2021 2:25 PM CST Op Note: CABG Patient: Deepak Alvarado Service Date: 05/04/2021 : 1960 Admit Date: 05/01/2021 SURGEON Rhina Granados MD [employer] SPECIALIST MD [place] PREOPERATIVE DIAGNOSIS Coronary artery disease POSTOPERATIVE DIAGNOSIS Coronary artery disease PROCEDURE PERFORMED Coronary artery bypass grafting x4, placement of left QUINN to the LAD, saphenous vein graft to the diagonal artery and obtuse marginal in a sequential fashion, saphenous vein graft to the PDA ANESTHESIA General. INDICATIONS This is a 60 y.o. male who presented with ST-elevation [place] and was found to have occlusion of [...] of good size and quality as a dkpw-lw-tfld anastomosis. The distal end of this vein [...] holes. This included Gelfoam and thrombin, FloSeal, [place] patch, Tisseel, and Eh. After all these [...] a dose within 24 hours of surgery. DESIGN ENGINEER * Brief Op Note - Laly Lopes MD - 05/04/2021 2:25 PM CST Operative Progress Note Surgical Team: Surgeon(s) and Role: * Rhina Granados MD - Primary * Timothy Fletcher MD - Fellow Anesthesiologist: Can Jones MD Anesthesiologist Pharmacy Resident: Robert Duran AA Underwriting Specialist: Lc Roger Olive Brine Tester: Michaela Castro RN Scrub: Milagros Sharp RN DISABILITIES SERVICES OFFICER: Leanne Escobar CRNFA; Rosamaria Cleaning RN; Edwige [...] Rhina Granados MD at 05/05/2021 11:[address] DESIGN ENGINEER DESIGN ENGINEER DESIGN ENGINEER * Provider Query - Frank Dugan MD [...] and transurethral resection of bladder tumor at [facility] 05/01/2021 22:19 05/02/2021 04:43 05/02/2021 15:12 05/02/2021 [...] Thank you, Rosy Leung RN, BSN Clinical Correctional Officer Lieutenant [employer] Teams: Rosy Leung PerfectServe: Rosy Leung [facility] NAME: Rosy Leung Email: [email or web address] DESIGN ENGINEER * Provider Query - Frank Dugan MD [...] Thank you, Rosy Leung RN, BSN Clinical Correctional Officer [employer] Teams: Rosy Leung Perfect[employer]: Rosy Leung [facility] NAME: Rosy Leung Email: [email or web address] DESIGN ENGINEER * Significant Event - Lise Suggs NP - 05/04/2021 8:55 AM CST Urology Procedure Progress Note Subjective Deepak Alvarado is a 60 y.o. male that we are seeing for gross hematuria. He has a 20 Finnish Osorio catheter that is clotted. Lab/Radiology/Diagnostic Review: [...] noted to be thick and clotted. 20 Finnish catheter that was intact. Unable to aspirate [...] any questions. Lise Suggs NP Urology Division [facility] Office [phone] 05/04/2021 8:55 AM DESIGN ENGINEER DESIGN ENGINEER DESIGN ENGINEER * Plan of Care - Betty Rogers [...] and injury in home environment Outcome: Progressing DESIGN ENGINEER * Plan of Care - Jessica Adams RN - 05/02/2021 11:08 PM CST Goals: RN maintain comfort and safety with balloon pump Summary: pt complaint with bed rest DESIGN ENGINEER * Plan of Care - Jessica Adams RN - 05/02/2021 3:24 AM CST Goals: RN maintain comfort and safety with balloon pump Summary: pt complaint with bed rest DESIGN ENGINEER documented in this encounter Plan of Treatment Pending Results Name Type Priority Associated Diagnoses Date /Time Cardiac Catheterization Cardiac Cath Routine ST elevation myocardial infarction (STEMI), unspecified artery (HCC) 05/01/2021 6:[address] DESIGN ENGINEER Scheduled Orders Name Type Priority Associated Diagnoses Orde r Schedule ECG [address] elevation myocardial infarction involving left anterior descending (LAD) coronary artery (HCC) Once for 1 Occurrences starting 05/05/2021 until 05/05/2021 documented as of this encounter Procedures Procedure Name Priority Date/Time Associated Diagnosis Comments POCT GLUCOSE DEVICE Routine 06/03/2021 12:[address] DESIGN ENGINEER HOME O2 EVAL (DESATURATION SCREEN) Routine 06/03/2021 8:[address] DESIGN ENGINEER POCT GLUCOSE DEVICE Routine 06/03/2021 6 :[address] DESIGN ENGINEER EGFR Routine 06/03/2021 3:[address] DESIGN ENGINEER CBC WITHOUT DIFFERENTIAL Routine 06/03/2021 3:[address] DESIGN ENGINEER PHOSPHORUS Routine 06/03/2021 3:[address] DESIGN ENGINEER MAGNESIUM Routine 06/03/2021 3:[address] DESIGN ENGINEER BASIC METABOLIC PANEL Routine 06/03/2021 3:[address] DESIGN ENGINEER POCT GLUCOSE DEVICE Routine 06/02/2021 8 :[address] DESIGN ENGINEER POCT GLUCOSE DEVICE Routine 06/02/2021 4 :[address] DESIGN ENGINEER POCT GLUCOSE DEVICE Routine 06/02/2021 11:[address] DESIGN ENGINEER POCT GLUCOSE DEVICE Routine 06/02/2021 6 :[address] DESIGN ENGINEER EGFR Routine 06/02/2021 5:[address] DESIGN ENGINEER CBC WITHOUT DIFFERENTIAL Routine 06/02/2021 5:[address] DESIGN ENGINEER PHOSPHORUS Routine 06/02/2021 5:[address] DESIGN ENGINEER MAGNESIUM Routine 06/02/2021 5:[address] DESIGN ENGINEER VANCOMYCIN LEVEL TROUGH Timed 06/02/2021 5:[address] DESIGN ENGINEER BASIC METABOLIC PANEL Routine 06/02/2021 5:[address] DESIGN ENGINEER POCT GLUCOSE DEVICE Routine 06/02/2021 2 :[address] DESIGN ENGINEER POCT GLUCOSE DEVICE Routine 06/01/2021 9 :[address] DESIGN ENGINEER POCT GLUCOSE DEVICE Routine 06/01/2021 5 :[address] DESIGN ENGINEER PEP THERAPY Routine 06/01/2021 3:[address] DESIGN ENGINEER PEP THERAPY Routine 06/01/2021 3:[address] DESIGN ENGINEER POCT GLUCOSE DEVICE Routine 06/01/2021 11:[address] DESIGN ENGINEER EGFR Routine 06/01/2021 11:[address] DESIGN ENGINEER CBC WITHOUT DIFFERENTIAL Routine 06/01/2021 11:[address] DESIGN ENGINEER PHOSPHORUS Routine 06/01/2021 11:[address] DESIGN ENGINEER MAGNESIUM Routine 06/01/2021 11:[address] DESIGN ENGINEER BASIC METABOLIC PANEL Routine 06/01/2021 11:[address] DESIGN ENGINEER US VEIN DUPLEX LOWER EXTREMITY BILATERAL COMPLETE IP Routine 06/01/2021 9:[address] DESIGN ENGINEER PEP THERAPY Routine 06/01/2021 7:[address] DESIGN ENGINEER PEP THERAPY Routine 06/01/2021 7:[address] DESIGN ENGINEER POCT GLUCOSE DEVICE Routine 06/01/2021 6 :[address] DESIGN ENGINEER POCT GLUCOSE DEVICE Routine 06/01/2021 2 :[address] DESIGN ENGINEER POCT GLUCOSE DEVICE Routine 05/31/2021 9 :[address] DESIGN ENGINEER PEP THERAPY Routine 05/31/2021 7:[address] DESIGN ENGINEER POCT GLUCOSE DEVICE Routine 05/31/2021 6 :[address] DESIGN ENGINEER PEP THERAPY Routine 05/31/2021 3:[address] DESIGN ENGINEER PEP THERAPY Routine 05/31/2021 3:[address] DESIGN ENGINEER POCT GLUCOSE DEVICE Routine 05/31/2021 12:[address] DESIGN ENGINEER PEP THERAPY Routine 05/31/2021 11:[address] DESIGN ENGINEER PEP THERAPY Routine 05/31/2021 11:[address] DESIGN ENGINEER POCT GLUCOSE DEVICE Routine 05/31/2021 8 :[address] DESIGN ENGINEER PEP THERAPY Routine 05/31/2021 7:[address] DESIGN ENGINEER PEP THERAPY Routine 05/31/2021 7:[address] DESIGN ENGINEER XR CHEST 1 VIEW IP Routine 05/31/2021 6:[address] DESIGN ENGINEER EGFR Routine 05/31/2021 5:[address] DESIGN ENGINEER CBC WITHOUT DIFFERENTIAL Routine 05/31/2021 5:[address] DESIGN ENGINEER PHOSPHORUS Routine 05/31/2021 5:[address] DESIGN ENGINEER MAGNESIUM Routine 05/31/2021 5:[address] DESIGN ENGINEER VANCOMYCIN LEVEL TROUGH Timed 05/31/2021 5:[address] DESIGN ENGINEER BASIC METABOLIC PANEL Routine 05/31/2021 5:[address] DESIGN ENGINEER POCT GLUCOSE DEVICE Routine 05/30/2021 8 :[address] DESIGN ENGINEER CRITICAL CARE Routine 05/30/2021 8:[address] DESIGN ENGINEER ST elevation myocardial infarction (STEMI), unspecified artery (HCC) PEP THERAPY Routine 05/30/2021 7:[address] DESIGN ENGINEER PEP THERAPY Routine 05/30/2021 7:[address] DESIGN ENGINEER POCT GLUCOSE DEVICE Routine 05/30/2021 5 :[address] DESIGN ENGINEER PEP THERAPY Routine 05/30/2021 3:[address] DESIGN ENGINEER PEP THERAPY Routine 05/30/2021 3:[address] DESIGN ENGINEER POCT GLUCOSE DEVICE Routine 05/30/2021 12:[address] DESIGN ENGINEER PEP THERAPY Routine 05/30/2021 11:[address] DESIGN ENGINEER PEP THERAPY Routine 05/30/2021 11:[address] DESIGN ENGINEER POCT GLUCOSE DEVICE Routine 05/30/2021 7 :[address] DESIGN ENGINEER PEP THERAPY Routine 05/30/2021 7:[address] DESIGN ENGINEER PEP THERAPY Routine 05/30/2021 7:[address] DESIGN ENGINEER CRITICAL CARE Routine 05/30/2021 7:[address] DESIGN ENGINEER ST elevation myocardial infarction (STEMI), unspecified artery (HCC) EGFR Routine 05/30/2021 4:[address] DESIGN ENGINEER CBC WITHOUT DIFFERENTIAL Routine 05/30/2021 4:[address] DESIGN ENGINEER PHOSPHORUS Routine 05/30/2021 4:[address] DESIGN ENGINEER MAGNESIUM Routine 05/30/2021 4:[address] DESIGN ENGINEER BASIC METABOLIC PANEL Routine 05/30/2021 4:[address] DESIGN ENGINEER POCT GLUCOSE DEVICE Routine 05/29/2021 9 :[address] DESIGN ENGINEER CRITICAL CARE Routine 05/29/2021 8:[address] DESIGN ENGINEER ST elevation myocardial infarction (STEMI), unspecified artery (HCC) PEP THERAPY Routine 05/29/2021 7:[address] DESIGN ENGINEER PEP THERAPY Routine 05/29/2021 7:[address] DESIGN ENGINEER VANCOMYCIN LEVEL TROUGH Timed 05/29/2021 5:[address] DESIGN ENGINEER POCT GLUCOSE DEVICE Routine 05/29/2021 4 :[address] DESIGN ENGINEER PEP THERAPY Routine 05/29/2021 3:[address] DESIGN ENGINEER PEP THERAPY Routine 05/29/2021 3:[address] DESIGN ENGINEER BETA-HYDROXYBUTYRATE Routine 05/29/2021 2:[address] DESIGN ENGINEER POCT GLUCOSE DEVICE Routine 05/29/2021 11:[address] DESIGN ENGINEER PEP THERAPY Routine 05/29/2021 11:[address] DESIGN ENGINEER PEP THERAPY Routine 05/29/2021 11:[address] DESIGN ENGINEER POCT GLUCOSE DEVICE Routine 05/29/2021 8 :[address] DESIGN ENGINEER PEP THERAPY Routine 05/29/2021 7:[address] DESIGN ENGINEER PEP THERAPY Routine 05/29/2021 7:[address] DESIGN ENGINEER CRITICAL CARE Routine 05/29/2021 7:[address] DESIGN ENGINEER COVID Acute respiratory failure due to COVID-19 (CMS/HCC) (HCC) EGFR Routine 05/29/2021 5:[address] DESIGN ENGINEER CBC WITHOUT DIFFERENTIAL Routine 05/29/2021 5:[address] DESIGN ENGINEER PHOSPHORUS Routine 05/29/2021 5:[address] DESIGN ENGINEER MAGNESIUM Routine 05/29/2021 5:[address] DESIGN ENGINEER BASIC METABOLIC PANEL Routine 05/29/2021 5:[address] DESIGN ENGINEER CRITICAL CARE Routine 05/28/2021 10:[address] DESIGN ENGINEER Acute respiratory failure due to COVID-19 (CMS/HCC) (HCC) POCT GLUCOSE DEVICE Routine 05/28/2021 7 :[address] DESIGN ENGINEER PEP THERAPY Routine 05/28/2021 7:[address] DESIGN ENGINEER PEP THERAPY Routine 05/28/2021 7:[address] DESIGN ENGINEER POCT GLUCOSE DEVICE Routine 05/28/2021 5 :[address] DESIGN ENGINEER PEP THERAPY Routine 05/28/2021 3:[address] DESIGN ENGINEER PEP THERAPY Routine 05/28/2021 3:[address] DESIGN ENGINEER POCT GLUCOSE DEVICE Routine 05/28/2021 11:[address] DESIGN ENGINEER CRITICAL CARE Routine 05/28/2021 11:[address] DESIGN ENGINEER COVID Acute respiratory failure due to COVID-19 (CMS/HCC) (HCC) PEP THERAPY Routine 05/28/2021 11:[address] DESIGN ENGINEER PEP THERAPY Routine 05/28/2021 11:[address] DESIGN ENGINEER POCT GLUCOSE DEVICE Routine 05/28/2021 9 :[address] DESIGN ENGINEER PEP THERAPY Routine 05/28/2021 7:[address] DESIGN ENGINEER PEP THERAPY Routine 05/28/2021 7:[address] DESIGN ENGINEER POCT GLUCOSE DEVICE Routine 05/28/2021 6 :[address] DESIGN ENGINEER XR CHEST 1 VIEW IP Routine 05/28/2021 6:[address] DESIGN ENGINEER POCT GLUCOSE DEVICE Routine 05/28/2021 4 :[address] DESIGN ENGINEER EGFR Routine 05/28/2021 2:[address] DESIGN ENGINEER CBC WITHOUT DIFFERENTIAL Routine 05/28/2021 2:[address] DESIGN ENGINEER PHOSPHORUS Routine 05/28/2021 2:[address] DESIGN ENGINEER MAGNESIUM Routine 05/28/2021 2:[address] DESIGN ENGINEER VANCOMYCIN LEVEL TROUGH Timed 05/28/2021 2:[address] DESIGN ENGINEER BASIC METABOLIC PANEL Routine 05/28/2021 2:[address] DESIGN ENGINEER POCT GLUCOSE DEVICE Routine 05/28/2021 1 :[address] DESIGN ENGINEER POCT GLUCOSE DEVICE Routine 05/27/2021 10:[address] DESIGN ENGINEER CRITICAL CARE Routine 05/27/2021 8:[address] DESIGN ENGINEER Acute respiratory failure due to COVID-19 (CMS/HCC) (HCC) POCT GLUCOSE DEVICE Routine 05/27/2021 5 :[address] DESIGN ENGINEER CRITICAL CARE Routine 05/27/2021 2:[address] DESIGN ENGINEER Acute respiratory failure due to COVID-19 (CMS/HCC) (HCC) POCT GLUCOSE DEVICE Routine 05/27/2021 12:[address] DESIGN ENGINEER POCT GLUCOSE DEVICE Routine 05/27/2021 8 :[address] DESIGN ENGINEER POCT GLUCOSE DEVICE Routine 05/27/2021 6 :[address] DESIGN ENGINEER EGFR Routine 05/27/2021 6:[address] DESIGN ENGINEER CBC WITHOUT DIFFERENTIAL Routine 05/27/2021 6:[address] DESIGN ENGINEER PHOSPHORUS Routine 05/27/2021 6:[address] DESIGN ENGINEER MAGNESIUM Routine 05/27/2021 6:[address] DESIGN ENGINEER BASIC METABOLIC PANEL Routine 05/27/2021 6:[address] DESIGN ENGINEER XR CHEST 1 VIEW IP Routine 05/27/2021 5:[address] DESIGN ENGINEER POCT GLUCOSE DEVICE Routine 05/27/2021 12:[address] DESIGN ENGINEER POCT GLUCOSE DEVICE Routine 05/26/2021 10:[address] DESIGN ENGINEER CRITICAL CARE Routine 05/26/2021 9:[address] DESIGN ENGINEER Chronic obstructive pulmonary disease, unspecified COPD type (HCC) Pneumonia due to COVID-19 virus Acute hypoxemic respiratory failure due to COVID-19 (CMS/HCC) (HCC) S/P CABG x 4 ST elevation myocardial infarction involving left circumflex coronary artery (HCC) POCT GLUCOSE DEVICE Routine 05/26/2021 5 :[address] DESIGN ENGINEER CRITICAL CARE Routine 05/26/2021 4:[address] DESIGN ENGINEER ST elevation myocardial infarction (STEMI), unspecified artery (HCC) COVID URINALYSIS AND REFLEX TO MICROSCOPIC STAT 05/26/2021 4:[address] DESIGN ENGINEER STREP PNEUMONIAE AG, URINE Routine 05/26/2021 4:[address] DESIGN ENGINEER LEGIONELLA ANTIGEN, URINE Routine 05/26/2021 4:[address] DESIGN ENGINEER URINALYSIS, MICROSCOPIC ONLY STAT 05/26/2021 4:[address] DESIGN ENGINEER BLOOD CULTURE STAT 05/26/2021 1:[address] DESIGN ENGINEER BLOOD CULTURE STAT 05/26/2021 1:[address] DESIGN ENGINEER MRSA ONLY (STAPHYLOCOCCUS AUREUS) PCR STAT 05/26/2021 1:[address] DESIGN ENGINEER POCT GLUCOSE DEVICE Routine 05/26/2021 1 :[address] DESIGN ENGINEER PNEUMONIA PCR Routine 05/26/2021 11:[address] DESIGN ENGINEER PNEUMONIA PCR WITH AEROBIC CULTURE AND GRAM STAIN Routine 05/26/2021 11:[address] DESIGN ENGINEER PEP THERAPY Routine 05/26/2021 10:[address] DESIGN ENGINEER POCT GLUCOSE DEVICE Routine 05/26/2021 8 :[address] DESIGN ENGINEER PEP THERAPY Routine 05/26/2021 7:[address] DESIGN ENGINEER POCT GLUCOSE DEVICE Routine 05/26/2021 6 :[address] DESIGN ENGINEER EGFR Routine 05/26/2021 6:[address] DESIGN ENGINEER D-DIMER, QUANTITATIVE Routine 05/26/2021 6:[address] DESIGN ENGINEER CBC WITHOUT DIFFERENTIAL Routine 05/26/2021 6:[address] DESIGN ENGINEER CRP (ACUTE PHASE) Routine 05/26/2021 6:[address] DESIGN ENGINEER PHOSPHORUS Routine 05/26/2021 6:[address] DESIGN ENGINEER MAGNESIUM Routine 05/26/2021 6:[address] DESIGN ENGINEER BASIC METABOLIC PANEL Routine 05/26/2021 6:[address] DESIGN ENGINEER XR CHEST 1 VIEW IP Routine 05/26/2021 6:[address] DESIGN ENGINEER POCT GLUCOSE DEVICE Routine 05/25/2021 11:[address] DESIGN ENGINEER CRITICAL CARE Routine 05/25/2021 9:[address] DESIGN ENGINEER Chronic obstructive pulmonary disease, unspecified COPD type (HCC) Pulmonary edema with congestive heart failure (CMS/HCC) (HCC) Pneumonia due to COVID-19 virus Acute hypoxemic respiratory failure due to COVID-19 (CMS/HCC) (HCC) S/P CABG x 4 POCT GLUCOSE DEVICE Routine 05/25/2021 8 :[address] DESIGN ENGINEER POCT GLUCOSE DEVICE Routine 05/25/2021 5 :[address] DESIGN ENGINEER CRITICAL CARE Routine 05/25/2021 4:[address] DESIGN ENGINEER ST elevation myocardial infarction (STEMI), unspecified artery (HCC) COVID POCT GLUCOSE DEVICE Routine 05/25/2021 12:[address] CHEST PE W CONTRAST Critical/Life-T hreatening 05/25/2021 10:[address] DESIGN ENGINEER BLOOD GAS, ARTERIAL STAT 05/25/2021 9 :[address] DESIGN ENGINEER POCT GLUCOSE DEVICE Routine 05/25/2021 9 :[address] DESIGN ENGINEER PEP THERAPY Routine 05/25/2021 8:[address] DESIGN ENGINEER PEP THERAPY Routine 05/25/2021 8:[address] DESIGN ENGINEER PEP THERAPY Routine 05/25/2021 8:[address] DESIGN ENGINEER XR CHEST 1 VIEW IP Routine 05/25/2021 6:[address] DESIGN ENGINEER EGFR Routine 05/25/2021 3:[address] DESIGN ENGINEER CBC WITHOUT DIFFERENTIAL Routine 05/25/2021 3:[address] DESIGN ENGINEER PHOSPHORUS Routine 05/25/2021 3:[address] DESIGN ENGINEER MAGNESIUM Routine 05/25/2021 3:[address] DESIGN ENGINEER BASIC METABOLIC PANEL Routine 05/25/2021 3:[address] DESIGN ENGINEER CRITICAL CARE Routine 05/24/2021 11:[address] DESIGN ENGINEER Type 2 diabetes mellitus with other specified complication, without long-term current use of insulin (HCC) Chronic obstructive pulmonary disease, unspecified COPD type (HCC) Pneumonia due to COVID-19 virus Acute hypoxemic respiratory failure due to COVID-19 (CMS/HCC) (HCC) S/P CABG x 4 ST elevation myocardial infarction involving left circumflex coronary artery (HCC) POCT GLUCOSE DEVICE Routine 05/24/2021 11:[address] DESIGN ENGINEER POCT GLUCOSE DEVICE Routine 05/24/2021 7 :[address] DESIGN ENGINEER POCT GLUCOSE DEVICE Routine 05/24/2021 5 :[address] DESIGN ENGINEER CRITICAL CARE Routine 05/24/2021 1:[address] DESIGN ENGINEER ST elevation myocardial infarction (STEMI), unspecified artery (HCC) POCT GLUCOSE DEVICE Routine 05/24/2021 12:[address] DESIGN ENGINEER POCT GLUCOSE DEVICE Routine 05/24/2021 8 :[address] DESIGN ENGINEER XR CHEST 1 VIEW IP Routine 05/24/2021 6:[address] DESIGN ENGINEER POCT GLUCOSE DEVICE Routine 05/24/2021 6 :[address] DESIGN ENGINEER EGFR Routine 05/24/2021 3:[address] DESIGN ENGINEER IRON PROFILE W/ IBC Routine 05/24/2021 3 :[address] DESIGN ENGINEER ALBUMIN CREATININE RATIO, URINE Routine 05/24/2021 3:[address] DESIGN ENGINEER HEPATITIS PANEL, ACUTE Routine 3:[address] DESIGN ENGINEER VITAMIN D 25 HYDROXY Routine 05/24/2021 3:[address] DESIGN ENGINEER CBC WITHOUT DIFFERENTIAL Routine 05/24/2021 3:[address] DESIGN ENGINEER PHOSPHORUS Routine 05/24/2021 3:[address] DESIGN ENGINEER MAGNESIUM Routine 05/24/2021 3:[address] DESIGN ENGINEER FOLATE Routine 05/24/2021 3:[address] DESIGN ENGINEER FERRITIN Routine 05/24/2021 3:[address] DESIGN ENGINEER VITAMIN B12 Routine 05/24/2021 3:[address] DESIGN ENGINEER LIPID PANEL Routine 05/24/2021 3:[address] DESIGN ENGINEER BASIC METABOLIC PANEL Routine 05/24/2021 3:[address] DESIGN ENGINEER POCT GLUCOSE DEVICE Routine 05/23/2021 11:[address] DESIGN ENGINEER POCT GLUCOSE DEVICE Routine 05/23/2021 9 :[address] DESIGN ENGINEER CRITICAL CARE Routine 05/23/2021 8:[address] DESIGN ENGINEER ST elevation myocardial infarction involving left anterior descending (LAD) coronary artery ([facility]) Chronic obstructive pulmonary disease, unspecified COPD type ([facility]) Pneumonia due to COVID-19 virus Acute hypoxemic respiratory failure due to COVID-19 (CMS/HCC) (HCC) S/P CABG x 4 ST elevation myocardial infarction involving left circumflex coronary artery ([facility]) POCT GLUCOSE DEVICE Routine 05/23/2021 6 :[address] DESIGN ENGINEER CRITICAL CARE Routine 05/23/2021 3:[address] DESIGN ENGINEER Pneumonia due to COVID-19 virus POCT GLUCOSE DEVICE Routine 05/23/2021 2 :[address] DESIGN ENGINEER POCT GLUCOSE DEVICE Routine 05/23/2021 1 :[address] DESIGN ENGINEER POCT GLUCOSE DEVICE Routine 05/23/2021 11:[address] DESIGN ENGINEER POCT GLUCOSE DEVICE Routine 05/23/2021 10:[address] DESIGN ENGINEER POCT GLUCOSE DEVICE Routine 05/23/2021 9 :[address] DESIGN ENGINEER POCT GLUCOSE DEVICE Routine 05/23/2021 7 :[address] DESIGN ENGINEER POCT GLUCOSE DEVICE Routine 05/23/2021 6 :[address] DESIGN ENGINEER XR CHEST 1 VIEW IP Routine 05/23/2021 5:[address] DESIGN ENGINEER POCT GLUCOSE DEVICE Routine 05/23/2021 4 :[address] DESIGN ENGINEER POCT GLUCOSE DEVICE Routine 05/23/2021 4 :[address] DESIGN ENGINEER EGFR Routine 05/23/2021 3:[address] DESIGN ENGINEER POCT GLUCOSE DEVICE Routine 05/23/2021 3 :[address] DESIGN ENGINEER CBC WITHOUT DIFFERENTIAL Routine 05/23/2021 3:[address] DESIGN ENGINEER PHOSPHORUS Routine 05/23/2021 3:[address] DESIGN ENGINEER MAGNESIUM Routine 05/23/2021 3:[address] DESIGN ENGINEER BASIC METABOLIC PANEL Routine 05/23/2021 3:[address] DESIGN ENGINEER POCT GLUCOSE DEVICE Routine 05/23/2021 2 :[address] DESIGN ENGINEER POCT GLUCOSE DEVICE Routine 05/23/2021 1 :[address] DESIGN ENGINEER POCT GLUCOSE DEVICE Routine 05/22/2021 11:[address] DESIGN ENGINEER CRITICAL CARE Routine 05/22/2021 11:[address] DESIGN ENGINEER Chronic obstructive pulmonary disease, unspecified COPD type (HCC) Pneumonia due to COVID-19 virus Acute hypoxemic respiratory failure due to COVID-19 (CMS/HCC) (HCC) POCT GLUCOSE DEVICE Routine 05/22/2021 11:[address] DESIGN ENGINEER POCT GLUCOSE DEVICE Routine 05/22/2021 10:[address] DESIGN ENGINEER POCT GLUCOSE DEVICE Routine 05/22/2021 9 :[address] DESIGN ENGINEER POCT GLUCOSE DEVICE Routine 05/22/2021 8 :[address] DESIGN ENGINEER POCT GLUCOSE DEVICE Routine 05/22/2021 5 :[address] DESIGN ENGINEER POCT GLUCOSE DEVICE Routine 05/22/2021 4 :[address] DESIGN ENGINEER POCT GLUCOSE DEVICE Routine 05/22/2021 3 :[address] DESIGN ENGINEER POCT GLUCOSE DEVICE Routine 05/22/2021 2 :[address] DESIGN ENGINEER POCT GLUCOSE DEVICE Routine 05/22/2021 1 :[address] DESIGN ENGINEER POCT GLUCOSE DEVICE Routine 05/22/2021 12:[address] DESIGN ENGINEER POCT GLUCOSE DEVICE Routine 05/22/2021 11:[address] DESIGN ENGINEER POCT GLUCOSE DEVICE Routine 05/22/2021 10:[address] DESIGN ENGINEER POCT GLUCOSE DEVICE Routine 05/22/2021 9 :[address] DESIGN ENGINEER XR CHEST 1 VIEW IP Routine 05/22/2021 8:[address] DESIGN ENGINEER POCT GLUCOSE DEVICE Routine 05/22/2021 8 :[address] DESIGN ENGINEER CRITICAL CARE Routine 05/22/2021 7:[address]IGN [address] ST elevation myocardial infarction (STEMI), unspecified artery (HCC) POCT GLUCOSE DEVICE Routine 05/22/2021 6 :[address] DESIGN ENGINEER EGFR Routine 05/22/2021 3:[address] DESIGN ENGINEER PRO B-TYPE NATRIURETIC PEPTIDE Routine 05/22/2021 3:[address] DESIGN ENGINEER CBC WITHOUT DIFFERENTIAL Routine 05/22/2021 3:[address] DESIGN ENGINEER PHOSPHORUS Routine 05/22/2021 3:[address] DESIGN ENGINEER MAGNESIUM Routine 05/22/2021 3:[address] DESIGN ENGINEER BASIC METABOLIC PANEL Routine 05/22/2021 3:[address] DESIGN ENGINEER POCT GLUCOSE DEVICE Routine 05/22/2021 2 :[address] DESIGN ENGINEER POCT GLUCOSE DEVICE Routine 05/21/2021 11:[address] DESIGN ENGINEER CRITICAL CARE Routine 05/21/2021 11:[address] DESIGN ENGINEER Pneumonia due to COVID-19 virus POCT GLUCOSE DEVICE Routine 05/21/2021 9 :[address] DESIGN ENGINEER EGFR Add On 05/21/2021 9:[address] DESIGN ENGINEER CALCIUM, IONIZED STAT 05/21/2021 9:[address] DESIGN ENGINEER PHOSPHORUS STAT 05/21/2021 9:[address] DESIGN ENGINEER MAGNESIUM STAT 05/21/2021 9:[address] DESIGN ENGINEER BASIC METABOLIC PANEL Add-On 05/21/2021 9:[address] DESIGN ENGINEER POCT GLUCOSE DEVICE Routine 05/21/2021 8 :[address] DESIGN ENGINEER POCT GLUCOSE DEVICE Routine 05/21/2021 3 :[address] DESIGN ENGINEER POCT GLUCOSE DEVICE Routine 05/21/2021 11:[address] DESIGN ENGINEER POCT GLUCOSE DEVICE Routine 05/21/2021 8 :[address] DESIGN ENGINEER CRITICAL CARE Routine 05/21/2021 8:[address] DESIGN ENGINEER Pulmonary edema with congestive heart failure (CMS/HCC) (HCC) EGFR Routine 05/21/2021 4:[address] DESIGN ENGINEER PHOSPHORUS Routine 05/21/2021 4:[address] DESIGN ENGINEER MAGNESIUM Routine 05/21/2021 4:[address] DESIGN ENGINEER BASIC METABOLIC PANEL Routine 05/21/2021 4:[address] DESIGN ENGINEER CBC WITHOUT DIFFERENTIAL Routine 05/21/2021 3:[address] DESIGN ENGINEER POCT GLUCOSE DEVICE Routine 05/21/2021 2 :[address] DESIGN ENGINEER CRITICAL CARE Routine 05/20/2021 11:[address] DESIGN ENGINEER Pneumonia due to COVID-19 virus POCT GLUCOSE DEVICE Routine 05/20/2021 7 :[address] DESIGN ENGINEER POCT GLUCOSE DEVICE Routine 05/20/2021 5 :[address] DESIGN ENGINEER POCT GLUCOSE DEVICE Routine 05/20/2021 12:[address] DESIGN ENGINEER POCT GLUCOSE DEVICE Routine 05/20/2021 9 :[address] DESIGN ENGINEER CRITICAL CARE Routine 05/20/2021 8:[address] DESIGN ENG[address] ST elevation myocardial infarction (STEMI), unspecified artery (HCC) EGFR Timed 05/20/2021 3:[address] DESIGN ENGINEER CBC WITHOUT DIFFERENTIAL Routine 05/20/2021 3:[address] DESIGN ENGINEER CRP (ACUTE PHASE) Add-On 05/20/2021 3:[address] DESIGN ENGINEER PHOSPHORUS Routine 05/20/2021 3:[address] DESIGN ENGINEER MAGNESIUM Routine 05/20/2021 3:[address] DESIGN ENGINEER BASIC METABOLIC PANEL Timed 05/20/2021 3:[address] DESIGN ENGINEER POCT GLUCOSE DEVICE Routine 05/20/2021 1 :[address] DESIGN ENGINEER EGFR Timed 05/20/2021 12:[address] DESIGN ENGINEER BASIC METABOLIC PANEL Timed 05/20/2021 12:[address] DESIGN ENGINEER INFLUENZA A/B, RSV, AND COVID-19 PCR Routine 05/19/2021 8:[address] DESIGN ENGINEER POCT GLUCOSE DEVICE Routine 05/19/2021 8 :[address] DESIGN ENGINEER CRITICAL CARE Routine 05/19/2021 7:[address]IGN ENGINEER ST elevation myocardial infarction (STEMI), unspecified artery (HCC) EGFR Timed 05/19/2021 4:[address] DESIGN ENGINEER BASIC METABOLIC PANEL Timed 05/19/2021 4:[address] DESIGN ENGINEER POCT GLUCOSE DEVICE Routine 05/19/2021 4 :[address] DESIGN ENGINEER SNIFF TEST ED Urgent/IP Urgent 05/19/2021 4:[address] DESIGN ENGINEER POCT GLUCOSE DEVICE Routine 05/19/2021 1 :[address] CHEST WO CONTRAST IP Routine 05/19/2021 11:[address] DESIGN ENGINEER CRITICAL CARE Routine 05/19/2021 10:[address] DESIGN ENGINEER ST elevation myocardial infarction (STEMI), unspecified artery (HCC) POCT GLUCOSE DEVICE Routine 05/19/2021 7 :[address] DESIGN ENGINEER XR CHEST 1 VIEW IP Routine 05/19/2021 6:[address] DESIGN ENGINEER CBC WITHOUT DIFFERENTIAL Routine 05/19/2021 4:[address] DESIGN ENGINEER EGFR Timed 05/19/2021 4:[address] DESIGN ENGINEER PHOSPHORUS Routine 05/19/2021 4:[address] DESIGN ENGINEER MAGNESIUM Routine 05/19/2021 4:[address] DESIGN ENGINEER BASIC METABOLIC PANEL Timed 05/19/2021 4:[address] DESIGN ENGINEER EGFR STAT 05/19/2021 2:[address] DESIGN ENGINEER MAGNESIUM STAT 05/19/2021 2:[address] DESIGN ENGINEER BASIC METABOLIC PANEL STAT 05/19/2021 2:[address] DESIGN ENGINEER POCT GLUCOSE DEVICE Routine 05/19/2021 1 :[address] DESIGN ENGINEER POTASSIUM, WHOLE BLOOD STAT 1:[address] DESIGN ENGINEER D-DIMER, QUANTITATIVE STAT 05/18/2021 10:[address] DESIGN ENGINEER LACTATE STAT 05/18/2021 9:[address] DESIGN ENGINEER BETA-HYDROXYBUTYRATE STAT 05/18/2021 9:[address] DESIGN ENGINEER HEPATIC FUNCTION PANEL Routine 9:[address] DESIGN ENGINEER POCT GLUCOSE DEVICE Routine 05/18/2021 8 :[address] DESIGN ENGINEER BLOOD GAS, ARTERIAL STAT 05/18/2021 7 :[address] DESIGN ENGINEER CRITICAL CARE Routine 05/18/2021 7:[address] DESIGN ENGINEER ST elevation myocardial infarction (STEMI), unspecified artery (HCC) EGFR Timed 05/18/2021 5:[address] DESIGN ENGINEER EGFR STAT 05/18/2021 5:[address] DESIGN ENGINEER THYROID FUNCTION CASCADE Add-On 05/18/2021 5:[address] DESIGN ENGINEER MAGNESIUM STAT 05/18/2021 5:[address] DESIGN ENGINEER BASIC METABOLIC PANEL STAT 05/18/2021 5:[address] DESIGN ENGINEER BASIC METABOLIC PANEL Timed 05/18/2021 5:[address] DESIGN ENGINEER POCT GLUCOSE DEVICE Routine 05/18/2021 5 :[address] DESIGN ENGINEER CORTISOL Timed 05/18/2021 2:[address] DESIGN ENGINEER CORTISOL Timed 05/18/2021 1:[address] DESIGN ENGINEER POCT GLUCOSE DEVICE Routine 05/18/2021 1 :[address] DESIGN ENGINEER EGFR Timed 05/18/2021 12:[address] DESIGN ENGINEER CORTISOL Timed 05/18/2021 12:[address] DESIGN ENGINEER BASIC METABOLIC PANEL Timed 05/18/2021 12:[address] DESIGN ENGINEER POCT GLUCOSE DEVICE Routine 05/18/2021 12:[address] DESIGN ENGINEER NM PULMONARY PERFUSION IMAGING IP Routine 05/18/2021 11:[address] DESIGN ENGINEER POCT GLUCOSE DEVICE Routine 05/18/2021 11:[address] DESIGN ENGINEER CRITICAL CARE Routine 05/18/2021 10:[address] DESIGN ENGINEER ST elevation myocardial infarction (STEMI), unspecified artery (HCC) POCT GLUCOSE DEVICE Routine 05/18/2021 9 :[address] DESIGN ENGINEER POCT GLUCOSE DEVICE Routine 05/18/2021 8 :[address] DESIGN ENGINEER POCT GLUCOSE DEVICE Routine 05/18/2021 6 :[address] DESIGN ENGINEER EGFR Timed 05/18/2021 6:[address] DESIGN ENGINEER PRO B-TYPE NATRIURETIC PEPTIDE Routine 05/18/2021 6:[address] DESIGN ENGINEER BASIC METABOLIC PANEL Timed 05/18/2021 6:[address] DESIGN ENGINEER POCT GLUCOSE DEVICE Routine 05/18/2021 5 :[address] DESIGN ENGINEER XR CHEST 1 VIEW IP Routine 05/18/2021 5:[address] DESIGN ENGINEER POCT GLUCOSE DEVICE Routine 05/18/2021 4 :[address] DESIGN ENGINEER POCT GLUCOSE DEVICE Routine 05/18/2021 3 :[address] DESIGN ENGINEER POCT GLUCOSE DEVICE Routine 05/18/2021 3 :[address] DESIGN ENGINEER EGFR Timed 05/18/2021 2:[address] DESIGN ENGINEER CBC WITHOUT DIFFERENTIAL Routine 05/18/2021 2:[address] DESIGN ENGINEER PHOSPHORUS Routine 05/18/2021 2:[address] DESIGN ENGINEER MAGNESIUM Routine 05/18/2021 2:[address] DESIGN ENGINEER BASIC METABOLIC PANEL Timed 05/18/2021 2:[address] DESIGN ENGINEER POCT GLUCOSE DEVICE Routine 05/18/2021 2 :[address] DESIGN ENGINEER POCT GLUCOSE DEVICE Routine 05/18/2021 1 :[address] DESIGN ENGINEER POCT GLUCOSE DEVICE Routine 05/17/2021 11:[address] DESIGN ENGINEER POCT GLUCOSE DEVICE Routine 05/17/2021 10:[address] DESIGN ENGINEER POCT GLUCOSE DEVICE Routine 05/17/2021 9 :[address] DESIGN ENGINEER EGFR Timed 05/17/2021 9:[address] DESIGN ENGINEER BASIC METABOLIC PANEL Timed 05/17/2021 9:[address] DESIGN ENGINEER XR CHEST 1 VIEW Critical/Life-T hreatening 05/17/2021 9:[address] DESIGN ENGINEER POCT GLUCOSE DEVICE Routine 05/17/2021 8 :[address] DESIGN ENGINEER POCT GLUCOSE DEVICE Routine 05/17/2021 7 :[address] DESIGN ENGINEER CRITICAL CARE Routine 05/17/2021 7:[address] DESIGN ENGINEER ST elevation myocardial infarction (STEMI), unspecified artery (HCC) POCT GLUCOSE DEVICE Routine 05/17/2021 6 :[address] DESIGN ENGINEER POCT GLUCOSE DEVICE Routine 05/17/2021 6 :[address] DESIGN ENGINEER POCT GLUCOSE DEVICE Routine 05/17/2021 5 :[address] DESIGN ENGINEER POCT GLUCOSE DEVICE Routine 05/17/2021 3 :[address] DESIGN ENGINEER EGFR STAT 05/17/2021 2:[address] DESIGN ENGINEER MAGNESIUM STAT 05/17/2021 2:[address] DESIGN ENGINEER BASIC METABOLIC PANEL STAT 05/17/2021 2:[address] DESIGN ENGINEER POCT GLUCOSE DEVICE Routine 05/17/2021 2 :[address] DESIGN ENGINEER POCT GLUCOSE DEVICE Routine 05/17/2021 1 :[address] DESIGN ENGINEER POCT GLUCOSE DEVICE Routine 05/17/2021 12:[address] DESIGN ENGINEER LACTATE STAT 05/17/2021 9:[address] DESIGN ENGINEER EGFR Routine 05/17/2021 9:[address] DESIGN ENGINEER BETA-HYDROXYBUTYRATE STAT 05/17/2021 9:[address] DESIGN ENGINEER BASIC METABOLIC PANEL Routine 05/17/2021 9:[address] DESIGN ENGINEER POCT GLUCOSE DEVICE Routine 05/17/2021 9 :[address] DESIGN ENGINEER CRITICAL CARE Routine 05/17/2021 8:[address] DESIGN [address] ST elevation myocardial infarction (STEMI), unspecified artery (HCC) XR CHEST 1 VIEW ED Urgent/IP Urgent 05/17/2021 7:[address] DESIGN ENGINEER OXYHEMOGLOBIN, CENTRAL VENOUS Routine 05/17/2021 4:[address] DESIGN ENGINEER TRANSTHORACIC ECHO (TTE) COMPLETE W DOPPLER/CF WO CONTRAST Routine 05/17/2021 3:[address] DESIGN ENGINEER OXYHEMOGLOBIN, CENTRAL VENOUS STAT 05/17/2021 3:[address] DESIGN ENGINEER EGFR STAT 05/17/2021 3:[address] DESIGN ENGINEER DIFFERENTIAL AUTO STAT 05/17/2021 3:[address] DESIGN ENGINEER CALCIUM, IONIZED STAT 05/17/2021 3:[address] DESIGN ENGINEER CBC WITH AUTO DIFFERENTIAL STAT 05/17/2021 3:[address] DESIGN ENGINEER PHOSPHORUS STAT 05/17/2021 3:[address] DESIGN ENGINEER MAGNESIUM STAT 05/17/2021 3:[address] DESIGN ENGINEER COMPREHENSIVE METABOLIC PANEL STAT 05/17/2021 3:[address] DESIGN ENGINEER CRITICAL CARE Routine 05/17/2021 3:[address] DESIGN ENGINEER Pulmonary edema with congestive heart failure (CMS/HCC) (HCC) XR CHEST 1 VIEW Critical/Life-T hreatening 05/17/2021 2:[address] DESIGN ENGINEER POCT GLUCOSE DEVICE Routine 05/17/2021 2 :[address] DESIGN ENGINEER BLOOD GAS, ARTERIAL STAT 05/17/2021 2 :[address] DESIGN ENGINEER POCT GLUCOSE DEVICE Routine 05/17/2021 2 :[address] DESIGN ENGINEER POCT GLUCOSE DEVICE Routine 05/16/2021 10:[address] DESIGN ENGINEER POCT GLUCOSE DEVICE Routine 05/16/2021 8 :[address] DESIGN ENGINEER POCT GLUCOSE DEVICE Routine 05/16/2021 6 :[address] DESIGN ENGINEER POCT GLUCOSE DEVICE Routine 05/16/2021 12:[address] DESIGN ENGINEER POCT GLUCOSE DEVICE Routine 05/16/2021 7 :[address] DESIGN ENGINEER EGFR Routine 05/16/2021 5:[address] DESIGN ENGINEER CBC WITHOUT DIFFERENTIAL Routine 05/16/2021 5:[address] DESIGN ENGINEER PHOSPHORUS Routine 05/16/2021 5:[address] DESIGN ENGINEER MAGNESIUM Routine 05/16/2021 5:[address] DESIGN ENGINEER BASIC METABOLIC PANEL Routine 05/16/2021 5:[address] DESIGN ENGINEER XR CHEST 1 VIEW IP Routine 05/16/2021 5:[address] DESIGN ENGINEER POCT GLUCOSE DEVICE Routine 05/16/2021 2 :[address] DESIGN ENGINEER POCT GLUCOSE DEVICE Routine 05/15/2021 8 :[address] DESIGN ENGINEER POCT GLUCOSE DEVICE Routine 05/15/2021 5 :[address] DESIGN ENGINEER POCT GLUCOSE DEVICE Routine 05/15/2021 12:[address] DESIGN ENGINEER POCT GLUCOSE DEVICE Routine 05/15/2021 7 :[address] DESIGN ENGINEER XR CHEST 1 VIEW IP Routine 05/15/2021 6:[address] DESIGN ENGINEER EGFR Routine 05/15/2021 5:[address] DESIGN ENGINEER PHOSPHORUS Routine 05/15/2021 5:[address] DESIGN ENGINEER MAGNESIUM Routine 05/15/2021 5:[address] DESIGN ENGINEER BASIC METABOLIC PANEL Routine 05/15/2021 5:[address] DESIGN ENGINEER CBC WITHOUT DIFFERENTIAL Routine 05/15/2021 5:[address] DESIGN ENGINEER POCT GLUCOSE DEVICE Routine 05/15/2021 2 :[address] DESIGN ENGINEER POCT GLUCOSE DEVICE Routine 05/14/2021 10:[address] DESIGN ENGINEER POCT GLUCOSE DEVICE Routine 05/14/2021 5 :[address] DESIGN ENGINEER POCT GLUCOSE DEVICE Routine 05/14/2021 1 :[address] DESIGN ENGINEER POCT GLUCOSE DEVICE Routine 05/14/2021 11:[address] DESIGN ENGINEER EGFR Routine 05/14/2021 9:[address] DESIGN ENGINEER CBC WITHOUT DIFFERENTIAL Routine 05/14/2021 9:[address] DESIGN ENGINEER PHOSPHORUS Routine 05/14/2021 9:[address] DESIGN ENGINEER MAGNESIUM Routine 05/14/2021 9:[address] DESIGN ENGINEER BASIC METABOLIC PANEL Routine 05/14/2021 9:[address] DESIGN ENGINEER POCT GLUCOSE DEVICE Routine 05/14/2021 9 :[address] DESIGN ENGINEER POCT GLUCOSE DEVICE Routine 05/14/2021 6 :[address] DESIGN ENGINEER XR CHEST 1 VIEW IP Routine 05/14/2021 6:[address] DESIGN ENGINEER POCT GLUCOSE DEVICE Routine 05/13/2021 8 :[address] DESIGN ENGINEER POCT GLUCOSE DEVICE Routine 05/13/2021 5 :[address]IGN [address] CT ABDOMEN PELVIS WO CONTRAST IP Routine 05/13/2021 2:[address] DESIGN ENGINEER POCT GLUCOSE DEVICE Routine 05/13/2021 8 :[address] DESIGN ENGINEER EGFR Routine 05/13/2021 6:[address] DESIGN ENGINEER PHOSPHORUS Routine 05/13/2021 6:[address] DESIGN ENGINEER MAGNESIUM Routine 05/13/2021 6:[address] DESIGN ENGINEER BASIC METABOLIC PANEL Routine 05/13/2021 6:[address] DESIGN ENGINEER CBC WITHOUT DIFFERENTIAL Routine 05/13/2021 6:[address] DESIGN ENGINEER XR CHEST 1 VIEW IP Routine 05/13/2021 6:[address] DESIGN ENGINEER POCT GLUCOSE DEVICE Routine 05/13/2021 1 :[address] DESIGN ENGINEER POCT GLUCOSE DEVICE Routine 05/12/2021 10:[address] DESIGN ENGINEER POCT GLUCOSE DEVICE Routine 05/12/2021 5 :[address] DESIGN ENGINEER POCT GLUCOSE DEVICE Routine 05/12/2021 12:[address] DESIGN ENGINEER APTT STAT 05/12/2021 12:[address] DESIGN ENGINEER PROTIME-INR STAT 05/12/2021 12:[address] DESIGN ENGINEER POCT GLUCOSE DEVICE Routine 05/12/2021 8 :[address] DESIGN ENGINEER POCT GLUCOSE DEVICE Routine 05/12/2021 7 :[address] DESIGN ENGINEER EGFR Routine 05/12/2021 6:[address] DESIGN ENGINEER CBC WITHOUT DIFFERENTIAL Routine 05/12/2021 6:[address] DESIGN ENGINEER PHOSPHORUS Routine 05/12/2021 6:[address] DESIGN ENGINEER MAGNESIUM Routine 05/12/2021 6:[address] DESIGN ENGINEER BASIC METABOLIC PANEL Routine 05/12/2021 6:[address] DESIGN ENGINEER XR CHEST 1 VIEW IP Routine 05/12/2021 5:[address] DESIGN ENGINEER POCT GLUCOSE DEVICE Routine 05/12/2021 1 :[address] DESIGN ENGINEER POCT GLUCOSE DEVICE Routine 05/11/2021 9 :[address] DESIGN ENGINEER POCT GLUCOSE DEVICE Routine 05/11/2021 6 :[address] DESIGN ENGINEER POCT GLUCOSE DEVICE Routine 05/11/2021 11:[address] DESIGN ENGINEER POCT GLUCOSE DEVICE Routine 05/11/2021 8 :[address] DESIGN ENGINEER XR CHEST 1 VIEW IP Routine 05/11/2021 6:[address] DESIGN ENGINEER EGFR Routine 05/11/2021 6:[address] DESIGN ENGINEER CBC WITHOUT DIFFERENTIAL Routine 05/11/2021 6:[address] DESIGN ENGINEER PHOSPHORUS Routine 05/11/2021 6:[address] DESIGN ENGINEER MAGNESIUM Routine 05/11/2021 6:[address] DESIGN ENGINEER BASIC METABOLIC PANEL Routine 05/11/2021 6:[address] DESIGN ENGINEER POCT GLUCOSE DEVICE Routine 05/11/2021 5 :[address] DESIGN ENGINEER POCT GLUCOSE DEVICE Routine 05/11/2021 1 :[address] DESIGN ENGINEER POCT GLUCOSE DEVICE Routine 05/10/2021 9 :[address] DESIGN ENGINEER POCT GLUCOSE DEVICE Routine 05/10/2021 4 :[address] DESIGN ENGINEER POCT GLUCOSE DEVICE Routine 05/10/2021 12:[address] DESIGN ENGINEER POCT GLUCOSE DEVICE Routine 05/10/2021 7 :[address] DESIGN ENGINEER XR CHEST 1 VIEW IP Routine 05/10/2021 6:[address] DESIGN ENGINEER POCT GLUCOSE DEVICE Routine 05/10/2021 5 :[address] DESIGN ENGINEER EGFR Routine 05/10/2021 5:[address] DESIGN ENGINEER CBC WITHOUT DIFFERENTIAL Routine 05/10/2021 5:[address] DESIGN ENGINEER PHOSPHORUS Routine 05/10/2021 5:[address] DESIGN ENGINEER MAGNESIUM Routine 05/10/2021 5:[address] DESIGN ENGINEER BASIC METABOLIC PANEL Routine 05/10/2021 5:[address] DESIGN ENGINEER POCT GLUCOSE DEVICE Routine 05/10/2021 1 :[address] DESIGN ENGINEER POCT GLUCOSE DEVICE Routine 05/09/2021 10:[address] DESIGN ENGINEER POCT GLUCOSE DEVICE Routine 05/09/2021 6 :[address] DESIGN ENGINEER POCT GLUCOSE DEVICE Routine 05/09/2021 11:[address] DESIGN ENGINEER POCT GLUCOSE DEVICE Routine 05/09/2021 7 :[address] DESIGN ENGINEER XR CHEST 1 VIEW IP Routine 05/09/2021 6:[address] DESIGN ENGINEER EGFR Routine 05/09/2021 6:[address] DESIGN ENGINEER CBC WITHOUT DIFFERENTIAL Routine 05/09/2021 6:[address] DESIGN ENGINEER PHOSPHORUS Routine 05/09/2021 6:[address] DESIGN ENGINEER MAGNESIUM Routine 05/09/2021 6:[address] DESIGN ENGINEER BASIC METABOLIC PANEL Routine 05/09/2021 6:[address] DESIGN ENGINEER POCT GLUCOSE DEVICE Routine 05/09/2021 3 :[address] DESIGN ENGINEER POCT GLUCOSE DEVICE Routine 05/09/2021 12:[address] DESIGN ENGINEER POCT GLUCOSE DEVICE Routine 05/08/2021 10:[address] DESIGN ENGINEER POCT GLUCOSE DEVICE Routine 05/08/2021 5 :[address] DESIGN ENGINEER POCT GLUCOSE DEVICE Routine 05/08/2021 12:[address] DESIGN ENGINEER POCT GLUCOSE DEVICE Routine 05/08/2021 7 :[address] DESIGN ENGINEER EGFR Routine 05/08/2021 5:[address] DESIGN ENGINEER CBC WITHOUT DIFFERENTIAL Routine 05/08/2021 5:[address] DESIGN ENGINEER PHOSPHORUS Routine 05/08/2021 5:[address] DESIGN ENGINEER MAGNESIUM Routine 05/08/2021 5:[address] DESIGN ENGINEER BASIC METABOLIC PANEL Routine 05/08/2021 5:[address] DESIGN ENGINEER XR CHEST 1 VIEW IP Routine 05/08/2021 5:[address] DESIGN ENGINEER POCT GLUCOSE DEVICE Routine 05/08/2021 4 :[address] DESIGN ENGINEER POCT GLUCOSE DEVICE Routine 05/08/2021 12:[address] DESIGN ENGINEER POCT GLUCOSE DEVICE Routine 05/07/2021 7 :[address] DESIGN ENGINEER POCT GLUCOSE DEVICE Routine 05/07/2021 3 :[address] DESIGN ENGINEER CRITICAL CARE Routine 05/07/2021 3:[address] DESIGN ENGINEER ST elevation myocardial infarction (STEMI), unspecified artery (HCC) TRANSFUSE RED BLOOD CELLS Timed 05/07/2021 2:[address] DESIGN ENGINEER TRANSTHORACIC ECHO (TTE) LIMITED/FOLLOW UP W LTD DOPPLER/CF WO CONTRAST Routine 05/07/2021 12:[address] DESIGN ENGINEER POCT GLUCOSE DEVICE Routine 05/07/2021 12:[address] DESIGN ENGINEER TYPE AND SCREEN Timed 05/07/2021 10:[address] DESIGN ENGINEER POCT GLUCOSE DEVICE Routine 05/07/2021 8 :[address] DESIGN ENGINEER PREPARE RBC STAT 05/07/2021 8:[address] DESIGN ENGINEER OXYHEMOGLOBIN, CENTRAL VENOUS Routine 05/07/2021 6:[address] DESIGN ENGINEER XR CHEST 1 VIEW IP Routine 05/07/2021 5:[address] DESIGN ENGINEER EGFR Routine 05/07/2021 4:[address] DESIGN ENGINEER CBC WITHOUT DIFFERENTIAL Routine 05/07/2021 4:[address] DESIGN ENGINEER PHOSPHORUS Routine 05/07/2021 4:[address] DESIGN ENGINEER MAGNESIUM Routine 05/07/2021 4:[address] DESIGN ENGINEER BASIC METABOLIC PANEL Routine 05/07/2021 4:[address] DESIGN ENGINEER POCT GLUCOSE DEVICE Routine 05/07/2021 4 :[address] DESIGN ENGINEER EGFR Timed 05/06/2021 11:[address] DESIGN ENGINEER MAGNESIUM Timed 05/06/2021 11:[address] DESIGN ENGINEER BASIC METABOLIC PANEL Timed 05/06/2021 11:[address] DESIGN ENGINEER POCT GLUCOSE DEVICE Routine 05/06/2021 11:[address] DESIGN ENGINEER POCT GLUCOSE DEVICE Routine 05/06/2021 8 :[address] DESIGN ENGINEER POCT GLUCOSE DEVICE Routine 05/06/2021 3 :[address] DESIGN ENGINEER EGFR STAT 05/06/2021 1:[address] DESIGN ENGINEER CBC WITHOUT DIFFERENTIAL STAT 05/06/2021 1:[address] DESIGN ENGINEER MAGNESIUM STAT 05/06/2021 1:[address] DESIGN ENGINEER BASIC METABOLIC PANEL STAT 05/06/2021 1:[address] DESIGN ENGINEER POCT GLUCOSE DEVICE Routine 05/06/2021 11:[address] DESIGN ENGINEER POCT GLUCOSE DEVICE Routine 05/06/2021 7 :[address] DESIGN ENGINEER XR CHEST 1 VIEW IP Routine 05/06/2021 5:[address] DESIGN ENGINEER EGFR Routine 05/06/2021 3:[address] DESIGN ENGINEER CBC WITHOUT DIFFERENTIAL Routine 05/06/2021 3:[address] DESIGN ENGINEER PHOSPHORUS Routine 05/06/2021 3:[address] DESIGN ENGINEER MAGNESIUM Routine 05/06/2021 3:[address] DESIGN ENGINEER BASIC METABOLIC PANEL Routine 05/06/2021 3:[address] DESIGN ENGINEER POCT GLUCOSE DEVICE Routine 05/05/2021 11:[address] DESIGN ENGINEER CRITICAL CARE Routine 05/05/2021 11:[address]IGN ENGINEER ST elevation myocardial infarction (STEMI), unspecified artery (HCC) Gross hematuria Chronic obstructive pulmonary disease, unspecified COPD type ([facility]) POCT GLUCOSE DEVICE Routine 05/05/2021 8 :[address] DESIGN ENGINEER POCT GLUCOSE DEVICE Routine 05/05/2021 4 :[address] DESIGN ENGINEER EGFR STAT 05/05/2021 4:[address] DESIGN ENGINEER MAGNESIUM STAT 05/05/2021 4:[address] DESIGN ENGINEER BLOOD GAS, ARTERIAL STAT 05/05/2021 4 :[address] DESIGN ENGINEER BASIC METABOLIC PANEL STAT 05/05/2021 4:[address] DESIGN ENGINEER CRITICAL CARE Routine 05/05/2021 12:[address] DESIGN ENGINEER Gross hematuria Primary hypertension PVD (peripheral vascular disease) ([facility]/HCC) ([facility]) Type 2 diabetes mellitus with other specified complication, without long-term current use of insulin ([facility]) ST elevation myocardial infarction involving left anterior descending (LAD) coronary artery ([facility]) Chronic obstructive pulmonary disease, unspecified COPD type ([facility]) POCT GLUCOSE DEVICE Routine 05/05/2021 12:[address] DESIGN ENGINEER EGFR STAT 05/05/2021 12:[address] DESIGN ENGINEER CALCIUM, IONIZED STAT 05/05/2021 12:[address] DESIGN ENGINEER CBC WITHOUT DIFFERENTIAL STAT 05/05/2021 12:[address] DESIGN ENGINEER MAGNESIUM STAT 05/05/2021 12:[address] DESIGN ENGINEER BLOOD GAS, ARTERIAL STAT 05/05/2021 12:[address] DESIGN ENGINEER BASIC METABOLIC PANEL STAT 05/05/2021 12:[address] DESIGN ENGINEER POCT GLUCOSE DEVICE Routine 05/05/2021 11:[address] DESIGN ENGINEER POCT GLUCOSE DEVICE Routine 05/05/2021 10:[address] DESIGN ENGINEER BLOOD GAS, ARTERIAL Routine 05/05/2021 10:[address] DESIGN ENGINEER AEROBIC CULTURE AND GRAM STAIN Routine 05/05/2021 9:[address] DESIGN ENGINEER POCT GLUCOSE DEVICE Routine 05/05/2021 9 :[address] DESIGN ENGINEER POCT GLUCOSE DEVICE Routine 05/05/2021 7 :[address] DESIGN ENGINEER BLOOD GAS, ARTERIAL STAT 05/05/2021 6 :[address] DESIGN ENGINEER POCT GLUCOSE DEVICE Routine 05/05/2021 6 :[address] DESIGN ENGINEER XR CHEST 1 VIEW IP Routine 05/05/2021 5:[address] DESIGN ENGINEER POCT GLUCOSE DEVICE Routine 05/05/2021 5 :[address] DESIGN ENGINEER BLOOD GAS, ARTERIAL STAT 05/05/2021 4 :[address] DESIGN ENGINEER EGFR Routine 05/05/2021 4:[address] DESIGN ENGINEER DIFFERENTIAL AUTO Routine 05/05/2021 4:[address] DESIGN ENGINEER CBC WITH AUTO DIFFERENTIAL Routine 05/05/2021 4:[address] DESIGN ENGINEER MANUAL DIFFERENTIAL Routine 05/05/2021 4 :[address] DESIGN ENGINEER PHOSPHORUS Routine 05/05/2021 4:[address] DESIGN ENGINEER MAGNESIUM Routine 05/05/2021 4:[address] DESIGN ENGINEER BASIC METABOLIC PANEL Routine 05/05/2021 4:[address] DESIGN ENGINEER OXYHEMOGLOBIN, PULMONARY ARTERY Routine 05/05/2021 4:[address] DESIGN ENGINEER POCT GLUCOSE DEVICE Routine 05/05/2021 3 :[address] DESIGN ENGINEER TRANSFUSE RED BLOOD CELLS Timed 05/05/2021 3:[address] DESIGN ENGINEER POCT GLUCOSE DEVICE Routine 05/05/2021 2 :[address] DESIGN ENGINEER OXYHEMOGLOBIN, PULMONARY ARTERY STAT 05/05/2021 2:[address] DESIGN ENGINEER LACTATE STAT 05/05/2021 2:[address] DESIGN ENGINEER EGFR STAT 05/05/2021 2:[address] DESIGN ENGINEER CALCIUM, IONIZED STAT 05/05/2021 2:[address] DESIGN ENGINEER MAGNESIUM STAT 05/05/2021 2:[address] DESIGN ENGINEER BLOOD GAS, ARTERIAL STAT 05/05/2021 2 :[address] DESIGN ENGINEER BASIC METABOLIC PANEL STAT 05/05/2021 2:[address] DESIGN ENGINEER TRANSFUSE RED BLOOD CELLS Timed 05/05/2021 1:[address] DESIGN ENGINEER POCT GLUCOSE DEVICE Routine 05/05/2021 1 :[address] DESIGN ENGINEER EGFR Timed 05/05/2021 12:[address] DESIGN ENGINEER APTT Routine 05/05/2021 12:[address] DESIGN ENGINEER PROTIME-INR Routine 05/05/2021 12:[address] DESIGN ENGINEER CBC WITHOUT DIFFERENTIAL Timed 05/05/2021 12:[address] DESIGN ENGINEER BASIC METABOLIC PANEL Timed 05/05/2021 12:[address] DESIGN ENGINEER POCT GLUCOSE DEVICE Routine 05/04/2021 11:[address] DESIGN ENGINEER CALCIUM, IONIZED STAT 05/04/2021 11:[address] DESIGN ENGINEER BLOOD GAS, ARTERIAL Timed 05/04/2021 11:[address] DESIGN ENGINEER POCT GLUCOSE DEVICE Routine 05/04/2021 10:[address] DESIGN ENGINEER TRANSFUSE RED BLOOD CELLS Timed 05/04/2021 10:[address] DESIGN ENGINEER PREPARE RBC STAT 05/04/2021 9:[address] DESIGN ENGINEER POCT GLUCOSE DEVICE Routine 05/04/2021 9 :[address] DESIGN ENGINEER EGFR Timed 05/04/2021 9:[address] DESIGN ENGINEER APTT STAT 05/04/2021 9:[address] DESIGN ENGINEER PROTIME-INR STAT 05/04/2021 9:[address] DESIGN ENGINEER CBC WITHOUT DIFFERENTIAL Timed 05/04/2021 9:[address] DESIGN ENGINEER MAGNESIUM STAT 05/04/2021 9:[address] DESIGN ENGINEER BASIC METABOLIC PANEL Timed 05/04/2021 9:[address] DESIGN ENGINEER CALCIUM, IONIZED STAT 05/04/2021 9:[address] DESIGN ENGINEER BLOOD GAS, ARTERIAL Timed 05/04/2021 9 :[address] DESIGN ENGINEER XR CHEST 1 VIEW Critical/Life-T hreatening 05/04/2021 8:[address] DESIGN ENGINEER POCT GLUCOSE DEVICE Routine 05/04/2021 8 :[address] DESIGN ENGINEER CRITICAL CARE Routine 05/04/2021 8:[address] DESIGN ENGINEER ST elevation myocardial infarction (STEMI), unspecified artery (HCC) Gross hematuria Type 2 diabetes mellitus with other specified complication, without long-term current use of insulin (HCC) TRANSFUSE CRYOPRECIPITATE (POOLED UNITS) Timed 05/04/2021 8:[address] DESIGN ENGINEER TRANSFUSE PLASMA Timed 05/04/2021 7:[address] DESIGN ENGINEER POC BLOOD GAS AND CHEMISTRIES, ARTERIAL Routine 05/04/2021 7:[address] DESIGN ENGINEER TRANSFUSE PLATELETS Timed 05/04/2021 7 :[address] DESIGN ENGINEER PREPARE CRYOPRECIPITATE (POOLED UNITS) STAT 05/04/2021 6:[address] DESIGN ENGINEER POC BLOOD GAS AND CHEMISTRIES, ARTERIAL Routine 05/04/2021 6:[address] DESIGN ENGINEER TRANSFUSE PLATELETS Timed 05/04/2021 6 :[address] DESIGN ENGINEER TRANSFUSE PLASMA Timed 05/04/2021 6:[address] DESIGN ENGINEER POC BLOOD GAS AND CHEMISTRIES, ARTERIAL Routine 05/04/2021 6:[address] DESIGN ENGINEER PLATELET COUNT STAT 05/04/2021 5:[address] DESIGN ENGINEER POC BLOOD GAS AND CHEMISTRIES, ARTERIAL Routine 05/04/2021 5:[address] DESIGN ENGINEER PREPARE RBC STAT 05/04/2021 5:[address] DESIGN ENGINEER TRANSFUSE RED BLOOD CELLS Timed 05/04/2021 5:[address] DESIGN ENGINEER POC BLOOD GAS AND CHEMISTRIES, ARTERIAL Routine 05/04/2021 5:[address] DESIGN ENGINEER TRANSFUSE RED BLOOD CELLS Timed 05/04/2021 4:[address] DESIGN ENGINEER POC BLOOD GAS AND CHEMISTRIES, ARTERIAL Routine 05/04/2021 4:[address] DESIGN ENGINEER POC BLOOD GAS AND CHEMISTRIES, ARTERIAL Routine 05/04/2021 3:[address] DESIGN ENGINEER PREPARE PLASMA STAT 05/04/2021 3:[address] DESIGN ENGINEER POC BLOOD GAS AND CHEMISTRIES, ARTERIAL Routine 05/04/2021 2:[address] DESIGN ENGINEER CORONARY ARTERY BYPASS GRAFT - INTERNAL MAMMARY/SAPHENOUS VEIN GRAFT - LEG 05/04/2021 1:[address]IGN ENGINEER ST elevation myocardial infarction (STEMI), unspecified artery ([facility]) POCT GLUCOSE DEVICE Routine 05/04/2021 11:[address] DESIGN ENGINEER CRITICAL CARE Routine 05/04/2021 10:[address] DESIGN ENGINEER Gross hematuria PVD (peripheral vascular disease) (CMS/HCC) ([facility]) Type 2 diabetes mellitus with other specified complication, without long-term current use of insulin ([facility]) ST elevation myocardial infarction involving left anterior descending (LAD) coronary artery ([facility]) Chronic obstructive pulmonary disease, unspecified COPD type ([facility]) URINALYSIS AND REFLEX TO MICROSCOPIC Routine 05/04/2021 10:[address] DESIGN ENGINEER URINALYSIS, MICROSCOPIC ONLY Routine 05/04/2021 10:[address] DESIGN ENGINEER POCT GLUCOSE DEVICE Routine 05/04/2021 9 :[address] DESIGN ENGINEER XR CHEST 1 VIEW Critical/Life-T hreatening 05/04/2021 9:[address] DESIGN ENGINEER POCT GLUCOSE DEVICE Routine 05/04/2021 8 :[address] DESIGN ENGINEER CBC WITHOUT DIFFERENTIAL Routine 05/04/2021 2:[address] DESIGN ENGINEER EGFR Routine 05/04/2021 2:[address] DESIGN ENGINEER APTT STAT 05/04/2021 2:[address] DESIGN ENGINEER PROTIME-INR STAT 05/04/2021 2:[address] DESIGN ENGINEER PHOSPHORUS Routine 05/04/2021 2:[address] DESIGN ENGINEER MAGNESIUM Routine 05/04/2021 2:[address] DESIGN ENGINEER COMPREHENSIVE METABOLIC PANEL Routine 05/04/2021 2:[address] DESIGN ENGINEER POCT GLUCOSE DEVICE Routine 05/04/2021 2 :[address] DESIGN ENGINEER POCT GLUCOSE DEVICE Routine 05/03/2021 7 :[address] DESIGN ENGINEER CRITICAL CARE Routine 05/03/2021 7:[address] DESIGN ENGINEER ST elevation myocardial infarction (STEMI), unspecified artery (HCC) Gross hematuria POCT GLUCOSE DEVICE Routine 05/03/2021 4 :[address] DESIGN ENGINEER POCT GLUCOSE DEVICE Routine 05/03/2021 11:[address] DESIGN ENGINEER PREPARE PLATELETS STAT 05/03/2021 9:[address] DESIGN ENGINEER PREPARE RBC STAT 05/03/2021 9:[address] DESIGN ENGINEER CRITICAL CARE Routine 05/03/2021 9:[address] DESIGN ENGINEER Gross hematuria Hemoptysis Primary hypertension PVD (peripheral vascular disease) (CMS/HCC) (HCC) Type 2 diabetes mellitus with other specified complication, without long-term current use of insulin ([facility]) ST elevation myocardial infarction involving left anterior descending (LAD) coronary artery (HCC) POCT GLUCOSE DEVICE Routine 05/03/2021 7 :[address] DESIGN ENGINEER EGFR Routine 05/03/2021 4:[address] DESIGN ENGINEER APTT Routine 05/03/2021 4:[address] DESIGN ENGINEER CBC WITHOUT DIFFERENTIAL Routine 05/03/2021 4:[address] DESIGN ENGINEER PHOSPHORUS Routine 05/03/2021 4:[address] DESIGN ENGINEER MAGNESIUM Routine 05/03/2021 4:[address] DESIGN ENGINEER HEMOGLOBIN A1C Routine 05/03/2021 4:[address] DESIGN ENGINEER COMPREHENSIVE METABOLIC PANEL Routine 05/03/2021 4:[address] DESIGN ENGINEER CRITICAL CARE Routine 05/02/2021 8:[address] DESIGN ENGINEER ST elevation myocardial infarction (STEMI), unspecified artery (HCC) Gross hematuria EGFR STAT 05/02/2021 7:[address] DESIGN ENGINEER CBC WITHOUT DIFFERENTIAL STAT 05/02/2021 7:[address] DESIGN ENGINEER MAGNESIUM STAT 05/02/2021 7:[address] DESIGN ENGINEER BASIC METABOLIC PANEL STAT 05/02/2021 7:[address] DESIGN ENGINEER POCT GLUCOSE DEVICE Routine 05/02/2021 5 :[address] DESIGN ENGINEER TRANSFUSE RED BLOOD CELLS Timed 05/02/2021 4:[address] DESIGN ENGINEER PREPARE RBC STAT 05/02/2021 3:[address] DESIGN ENGINEER CBC WITHOUT DIFFERENTIAL Routine 05/02/2021 3:[address] DESIGN ENGINEER CRITICAL CARE Routine 05/02/2021 2:[address]IGN ENG[address]ER [address] elevation myocardial infarction (STEMI), unspecified artery (HCC) Gross hematuria Hemoptysis Primary hypertension PVD (peripheral vascular disease) (CMS/HCC) (HCC) Type 2 diabetes mellitus with other specified complication, without long-term current use of insulin (HCC) POCT GLUCOSE DEVICE Routine 05/02/2021 11:[address] DESIGN ENGINEER COVID-19 CORONAVIRUS RNA Routine 05/02/2021 11:[address] DESIGN ENGINEER APTT Routine 05/02/2021 11:[address] DESIGN ENGINEER TRANSTHORACIC ECHO (TTE) COMPLETE W DOPPLER/CF WO CONTRAST Routine 05/02/2021 9:[address] DESIGN ENGINEER POCT GLUCOSE DEVICE Routine 05/02/2021 8 :[address] DESIGN ENGINEER XR CHEST 1 VIEW IP Routine 05/02/2021 5:[address] DESIGN ENGINEER POCT GLUCOSE DEVICE Routine 05/02/2021 4 :[address] DESIGN ENGINEER TROPONIN T HIGH-SENSITIVITY 6-HOUR Timed 05/02/2021 4:[address] DESIGN ENGINEER EGFR Routine 05/02/2021 4:[address] DESIGN ENGINEER CBC WITHOUT DIFFERENTIAL Routine 05/02/2021 4:[address] DESIGN ENGINEER BASIC METABOLIC PANEL Routine 05/02/2021 4:[address] DESIGN ENGINEER TROPONIN T HIGH-SENSITIVITY 4-HR Timed 05/02/2021 2:[address] DESIGN ENGINEER TROPONIN T HIGH-SENSITIVITY 2-HOUR Timed 05/02/2021 12:[address] DESIGN ENGINEER APTT STAT 05/02/2021 12:[address] DESIGN ENGINEER TYPE AND SCREEN Timed 05/02/2021 12:[address] DESIGN ENGINEER LIPID PANEL Routine 05/02/2021 12:[address] DESIGN ENGINEER TROPONIN T HIGH-SENSITIVITY SERIES (BASELINE, 2HR, 4HR, 6HR) Routine 05/01/2021 10:[address] DESIGN ENGINEER EGFR Routine 05/01/2021 10:[address] DESIGN ENGINEER DIFFERENTIAL AUTO STAT 05/01/2021 10:[address] DESIGN ENGINEER PRO B-TYPE NATRIURETIC PEPTIDE STAT 05/01/2021 10:[address] DESIGN ENGINEER CALCIUM, IONIZED STAT 05/01/2021 10:[address] DESIGN ENGINEER CBC WITH AUTO DIFFERENTIAL STAT 05/01/2021 10:[address] DESIGN ENGINEER APTT STAT 05/01/2021 10:[address] DESIGN ENGINEER PROTIME-INR STAT 05/01/2021 10:[address] DESIGN ENGINEER PHOSPHORUS Routine 05/01/2021 10:[address] DESIGN ENGINEER MAGNESIUM Routine 05/01/2021 10:[address] DESIGN ENGINEER BLOOD GAS, ARTERIAL STAT 05/01/2021 10:[address] DESIGN ENGINEER COMPREHENSIVE METABOLIC PANEL Routine 05/01/2021 10:[address] DESIGN ENGINEER POCT GLUCOSE DEVICE Routine 05/01/2021 9 :[address] DESIGN ENGINEER XR CHEST 1 VIEW ED Urgent/IP Urgent 05/01/2021 8:[address] DESIGN ENGINEER CRITICAL CARE Routine 05/01/2021 8:[address] elevation myocardial infarction (STEMI), unspecified artery (HCC) POCT GLUCOSE DEVICE Routine 05/01/2021 7 :[address] DESIGN ENGINEER PERC INSRT INTRAORT BALL [id number] Routine 05/01/2021 6:[address] elevation myocardial infarction (STEMI), unspecified artery (HCC) PCI PTCA EA ADDTN'[place] [id number] Routine 05/01/2021 6:[address] elevation myocardial infarction (STEMI), unspecified artery (HCC) PERCUTAINEOUS TRANSLUMINAL CORONARY ANGIOPLASTY OF ONE MAJOR CORONARY Routine 05/01/2021 6:[address] ST elevation myocardial infarction (STEMI), unspecified artery (HCC) B CHECK SAMPLE STAT 04/30/2021 10:[address] DESIGN ENGINEER documented in this encounter Results * (ABNORMAL) POCT glucose (06/03/2021 12:[address] DESIGN ENGINEER) Glucose, POC 200(H) 70 - 199 mg/dL [facility] Blood 06/03/2021 12:[address] DESIGN ENGINEER 06/03/2021 12:[address] DESIGN ENGINEER us Robbie Celeste MD LAB POCT ORDERABLES - DEVICE Fi nal Result Performing Organization Address City/[facility]/ZIP Co de Phone Number [facility] [address] [facility] [place] [address] * (ABNORMAL) POCT glucose (06/03/2021 6:[address] DESIGN ENGINEER) Glucose, POC 211(H) 70 - 199 mg/dL [facility] Blood 06/03/2021 6:[address] DESIGN ENGINEER 06/03/2021 6:[address] DESIGN ENGINEER us Robbie Celeste MD LAB POCT ORDERABLES - DEVICE Fi nal Result Performing Organization Address [facility] de Phone Number [facility] [address] [facility] [place] [address] * eGFR (06/03/2021 3:[address] DESIGN ENGINEER) eGFR 124 mL/min/1. 73 m2 [facility] Comment: Interpretive Data Reference Interval Normal ?>/= [...] of Race in Diagnosing Kidney Disease, JASN 2021). The CKD-EPI equation should not be used for patients with unstable renal function and has not been validated in children and those over 70. Current interpretive data was last reviewed 2021. Blood 06/03/2021 3:[address] DESIGN ENGINEER 06/03/2021 3:[address] DESIGN ENGINEER Silviano Huddleston [employer] LAB BLOOD ORDERABLES Final Result [facility] [address] [place] [address] * (ABNORMAL) Basic metabolic panel (06/03/2021 3:[address] DESIGN ENGINEER) Sodium 135 135 - 145 mmol/L [facility] Potassium, pl 3.7 3.3 - 4.9 mmol/L [facility] Chloride 105 97 - 110 mmol/L [facility] CO2 18(L) 22 - 32 mmol/L [facility] Anion gap 12 2 - 15 mmol/L [facility] BUN 11 8 - 25 mg/dL [facility] Creatinine 0.42(L) 0.80 - 1.30 mg/dL [facility] Glucose 140 70 - 199 mg/dL [facility] Comment: Interpretive Data Fasting glucose [...] Calcium 8.5 8.5 - 10.3 mg/dL [facility] Blood 06/03/2021 3:[address] DESIGN ENGINEER 06/03/2021 3:[address] DESIGN ENGINEER Silviano Huddleston NP LAB BLOOD ORDERABLES Final Result [facility] [place] [address] [place] [address] * (ABNORMAL) CBC without differential (06/03/2021 3:[address] DESIGN ENGINEER) WBC 13.2(H) 3.8 - 9.9 K/cumm [facility] Hgb 9.2(L) 13.0 - 17.5 g/dL [facility] Hct 29.2(L) 38.9 - 50.3 % [facility] Plt 419(H) 150 - 400 K/cumm [facility] MPV 11.5 9.1 - 12.3 fL [facility] CH RBC 3.10(L) 4.30 - 5.80 M/cumm [facility] CH MCV 94.2 81.3 - 96.4 fL [facility] CH MCH 29.7 27.1 - 33.3 pg [facility] CH MCHC 31.5(L) 32.3 - 35.7 g/dL [facility] RDW CV 15.0(H) 11.1 - 14.9 % [facility] CH RDW SD 49.8(H) 35.7 - 48.1 fL [facility] NAM[facility] NRBC abs 0.00 0.00 - 0.01 K/cumm [facility] Blood 06/03/2021 3:[address] DESIGN ENGINEER 06/03/2021 3:[address] DESIGN ENGINEER Silviano Huddleston [employer] LAB BLOOD ORDERABLES Final Result [facility] [address] [place] [address] * Magnesium (06/03/2021 3:[address] DESIGN ENGINEER) Magnesium 1.8 1.4 - 2.5 mg/dL [facility] Blood 06/03/2021 3:[address] DESIGN ENGINEER 06/03/2021 3:[address] DESIGN ENGINEER Silviano Huddleston [employer] LAB BLOOD ORDERABLES Final Result [facility] [place] [address] [address] [facility] [place] [address] * Phosphorus (06/03/2021 3:[address] DESIGN ENGINEER) Phosphorus, pl 3.0 2.3 - 4.5 mg/dL [facility] Blood 06/03/2021 3:[address] DESIGN ENGINEER 06/03/2021 3:[address] DESIGN ENGINEER Silviano Huddleston [employer] LAB BLOOD ORDERABLES Final Result [facility] [address] [place] [address] * POCT glucose (06/02/2021 8:[address] DESIGN ENGINEER) Glucose, POC 193 70 - 199 mg/dL [facility] Blood 06/02/2021 8:[address] DESIGN ENGINEER 06/02/2021 8:[address] DESIGN ENGINEER us Robbie Celeste MD LAB POCT ORDERABLES - DEVICE Fi nal Result Performing Organization Address [facility] Co de Phone Number [facility] [address] [place] [address] * (ABNORMAL) POCT glucose (06/02/2021 4:[address] DESIGN ENGINEER) Glucose, POC 259(H) 70 - 199 mg/dL [facility] Blood 06/02/2021 4:[address] DESIGN ENGINEER 06/02/2021 4:[address] DESIGN ENGINEER us Robbie Celeste MD LAB POCT ORDERABLES - DEVICE Fi nal Result Performing Organization Address [facility] Co de Phone Number [facility] [address] [place] [address] * (ABNORMAL) POCT glucose (06/02/2021 11:[address] DESIGN ENGINEER) Glucose, POC 251(H) 70 - 199 mg/dL [facility] Blood 06/02/2021 11:[address] DESIGN ENGINEER 06/02/2021 11:[address] DESIGN ENGINEER us Robbie Celeste MD LAB POCT ORDERABLES - DEVICE Fi nal Result Performing Organization Address [facility]/ZIP Co de Phone Number [facility] [address] [facility] [place] [address] * POCT glucose (06/02/2021 6:[address] DESIGN ENGINEER) Glucose, POC 137 70 - 199 mg/dL [facility] Blood 06/02/2021 6:[address] DESIGN ENGINEER 06/02/2021 6:[address] DESIGN ENGINEER Rhina Granados MD LAB POCT ORDERABLES - DEVICE Final Result Performing Organization Address [facility] de Phone Number [facility] [address] [facility] [place] [address] * eGFR (06/02/2021 5:[address] DESIGN ENGINEER) eGFR 116 mL/min/1. 73 m2 [facility] Comment: Interpretive Data Reference Interval Normal ?>/= [...] data was last reviewed 2021. Blood 06/02/2021 5:[address] DESIGN ENGINEER 06/02/2021 5:[address] DESIGN ENGINEER Silviano Huddleston [employer] LAB BLOOD ORDERABLES Final Result [facility] [address] [place] [address] * (ABNORMAL) Basic metabolic panel (06/02/2021 5:[address] DESIGN ENGINEER) Sodium 135 135 - 145 mmol/L [facility] [...] 8.5 - 10.3 mg/dL [facility] Blood 06/02/2021 5:[address] DESIGN ENGINEER 06/02/2021 5:[address] DESIGN ENGINEER Silviano Yariel Brown [employer] LAB BLOOD ORDERABLES Final Result [facility] [address] Department of Laboratories [place], [place] [id number] * (ABNORMAL) CBC without differential (06/02/2021 5:[address] DESIGN ENGINEER) WBC 15.4(H) 3.8 - 9.9 K/cumm [facility] [...] K/cumm [facility] Blood 06/02/2021 5:[address] DESIGN ENGINEER 06/02/2021 5:[address] DESIGN ENGINEER Silviano Huddleston [employer] LAB BLOOD ORDERABLES Final Result Performing Organization Address City/[facility]/ZIP Co de Phone Number [facility] [address] [place] [address] * Magnesium (06/02/2021 5:[address] DESIGN ENGINEER) Magnesium 1.6 1.4 - 2.5 mg/dL [facility]ER[facility] NAM[facility] Blood 06/02/2021 5:[address] DESIGN ENGINEER 06/02/2021 5:[address] DESIGN ENGINEER Silviano Huddleston [employer] LAB BLOOD ORDERABLES Final Result [facility] [address] [place] [address] * Phosphorus (06/02/2021 5:[address] DESIGN ENGINEER) Phosphorus, pl 2.7 2.3 - 4.5 mg/dL [facility] Blood 06/02/2021 5:[address] DESIGN ENGINEER 06/02/2021 5:[address] DESIGN ENGINEER us Silviano Huddleston NP LAB BLOOD ORDERABLES Final Result Performing Organization Address [facility] Co de Phone Number [facility] NAMED [facility] [address] [place] [address] * Vancomycin level trough (06/02/2021 5:[address] DESIGN ENGINEER) Vancomycin trough 18.8 10.0 - 20.0 mcg/mL [facility] Blood 06/02/2021 5:[address] DESIGN ENGINEER 06/02/2021 5:[address] DESIGN ENGINEER Angelo Vance MD LAB BLOOD ORDERABLES Fin al Result Performing Organization Address [facility] Co de Phone Number [facility] NAMED [facility] [address] [place] [address] * POCT glucose (06/02/2021 2:[address] DESIGN ENGINEER) Glucose, POC 120 70 - 199 mg/dL [facility] Blood 06/02/2021 2:[address] DESIGN ENGINEER 06/02/2021 2:[address] DESIGN ENGINEER Rhina Granados MD LAB POCT ORDERABLES - DEVICE Final Result Performing Organization Address [facility] Co de Phone Number [facility] NAMED [facility] [address] [facility] [place] [address] * POCT glucose (06/01/2021 9:[address] DESIGN ENGINEER) Glucose, POC 166 70 - 199 mg/dL [facility] Blood 06/01/2021 9:[address] DESIGN ENGINEER 06/01/2021 9:[address] DESIGN ENGINEER Rhina Granados MD LAB POCT ORDERABLES - DEVICE Final Result Performing Organization Address [facility] de Phone Number [facility] [address] [facility] [place] [address] * (ABNORMAL) POCT glucose (06/01/2021 5:[address] DESIGN ENGINEER) Glucose, POC 219(H) 70 - 199 mg/dL [facility] Blood 06/01/2021 5:[address] DESIGN ENGINEER 06/01/2021 5:[address] DESIGN ENGINEER Rihna Granados MD LAB POCT ORDERABLES - DEVICE Final Result Performing Organization Address [facility] Phone Number [facility] [address] [facility] [place] [address] * POCT glucose (06/01/2021 11:[address] DESIGN ENGINEER) Glucose, POC 155 70 - 199 mg/dL [facility] Blood 06/01/2021 11:[address] DESIGN ENGINEER 06/01/2021 11:[address] DESIGN ENGINEER Rhina Granados MD LAB POCT ORDERABLES - DEVICE Final Result Performing Organization Address [facility] de Phone Number [facility] [address] [facility] [place] [address] * eGFR (06/01/2021 11:[address] DESIGN ENGINEER) eGFR 120 mL/min/1. 73 m2 [facility] Comment: Interpretive Data Reference Interval Normal ?>/= [...] reviewed 2021. Blood 06/01/2021 11:[address] DESIGN ENGINEER 06/01/2021 12:[address] DESIGN ENGINEER us Silviano Huddleston [employer] LAB BLOOD ORDERABLES Final Result [facility] [address] [facility] [place] [address] * (ABNORMAL) Basic metabolic panel (06/01/2021 11:[address] DESIGN ENGINEER) Sodium 135 135 - 145 mmol/L [facility] Potassium, pl 3.8 3.3 - 4.9 mmol/L [facility] Chloride 101 97 - 110 mmol/L [facility] CO2 20(L) 22 - 32 mmol/L [facility] Anion gap 14 2 - 15 mmol/L [facility] BUN 13 8 - 25 mg/dL [facility] Creatinine 0.47(L) 0.80 - 1.30 mg/dL [facility] Glucose 144 70 - 199 mg/dL [facility] [...] 8.7 8.5 - 10.3 mg/dL [facility] Blood 06/01/2021 11:[address] DESIGN ENGINEER 06/01/2021 12:[address] DESIGN ENGINEER Silviano Huddleston NP LAB BLOOD ORDERABLES Final Result [facility] [address] [place] [address] * (ABNORMAL) CBC without differential (06/01/2021 11:[address] DESIGN ENGINEER) WBC 16.3(H) 3.8 - 9.9 K/cumm [facility] Hgb 10.3(L) 13.0 - 17.5 g/dL [facility] Hct 33.0(L) 38.9 - 50.3 % CERFORMERLY NAMED [facility] Plt 508(H) 150 - 400 K/cumm [facility] MPV 11.4 9.1 - 12.3 fL [facility] RBC 3.50(L) 4.30 - 5.80 M/cumm [facility] MCV 94.3 81.3 - 96.4 fL [facility] MCH 29.4 27.1 - 33.3 pg [facility] MCHC 31.2(L) 32.3 - 35.7 g/dL [facility] RDW CV 14.5 11.1 - 14.9 % [facility] RDW SD 48.3(H) 35.7 - 48.1 fL [facility] NRBC abs 0.00 0.00 - 0.01 K/cumm [facility] Blood 06/01/2021 11:[address] DESIGN ENGINEER 06/01/2021 12:[address] DESIGN ENGINEER Silviano Yariel Brown [employer] LAB BLOOD ORDERABLES Final Result Performing Organization Address [facility]/ZIP Co de Phone Number [facility] [address] [address] [facility] [place] [address] * Magnesium (06/01/2021 11:[address] DESIGN ENGINEER) Magnesium 1.7 1.4 - 2.5 mg/dL [facility] Blood 06/01/2021 11:[address] DESIGN ENGINEER 06/01/2021 12:[address] DESIGN ENGINEER Silviano Huddleston [employer] LAB BLOOD ORDERABLES Final Result Performing Organization Address [facility] de Phone Number [facility] [address] [facility] [place] [address] * Phosphorus (06/01/2021 11:[address] DESIGN ENGINEER) Phosphorus, pl 2.6 2.3 - 4.5 mg/dL [facility] Blood 06/01/2021 11:[address] DESIGN ENGINEER 06/01/2021 12:[address] DESIGN ENGINEER Silviano Huddleston LAB BLOOD ORDERABLES Final Result Performing Organization Address [facility] de Phone Number [facility] [address] [facility] [place] [address] * US Vein Duplex Lower Extremity Bilateral Complete (06/01/2021 9:[address] DESIGN ENGINEER) Anatomical Region Laterality Modality Vascular Bilateral Ultrasound 06/01/2021 9:[address] DESIGN ENGINEER Impressions 06/01/2021 9:[address] DESIGN ENGINEER No evidence of deep vein thrombosis in bilateral lower extremities. Electronically signed by: Humphrey Mojica M.D. Narrative 06/01/2021 9:[address] DESIGN ENGINEER EXAMINATION: BILATERAL LOWER EXTREMITY VENOUS DUPLEX EXAM [...] by: Humphrey Mojica M.D. us Silviano Huddleston [employer] IMG US PROCEDURES Final Re sult * POCT glucose (06/01/2021 6:[address] DESIGN ENGINEER) Pathologist [facility] Glucose, POC 116 70 - 199 mg/dL [facility] Blood 06/01/2021 6:[address] DESIGN ENGINEER 06/01/2021 6:[address] DESIGN ENGINEER Rhina Granados MD LAB POCT ORDERABLES - DEVICE Final Result Performing Organization Address [facility] Co de Phone Number [facility] [address] [place] [address] * POCT glucose (06/01/2021 2:[address] DESIGN ENGINEER) [facility] Glucose, POC 114 70 - 199 mg/dL [facility] Blood 06/01/2021 2:[address] DESIGN ENGINEER 06/01/2021 2:[address] DESIGN ENGINEER Rhina Granados MD LAB POCT ORDERABLES - DEVICE Final Result Performing Organization Address [facility] Co de Phone Number [facility] [address] [place] [address] * POCT glucose (05/31/2021 9:[address] DESIGN ENGINEER) Glucose, POC 171 70 - 199 mg/dL [facility] Blood 05/31/2021 9:[address] DESIGN ENGINEER 05/31/2021 9:[address] DESIGN ENGINEER us Rhina Granados MD LAB POCT ORDERABLES - DEVICE Final Result Performing Organization Address [facility] Co de Phone Number [facility] [address] [facility] [place] [address] * POCT glucose (05/31/2021 6:[address] DESIGN ENGINEER) Glucose, POC 138 70 - 199 mg/dL [facility] Blood 05/31/2021 6:[address] DESIGN ENGINEER 05/31/2021 6:[address] DESIGN ENGINEER us Rhina Granados MD LAB POCT ORDERABLES - DEVICE Final Result Performing Organization Address [facility] de Phone Number [facility] [address] [facility] [place] [address] * POCT glucose (05/31/2021 12:[address] DESIGN ENGINEER) Glucose, POC 157 70 - 199 mg/dL [facility] Blood 05/31/2021 12:[address] DESIGN ENGINEER 05/31/2021 12:[address] DESIGN ENGINEER us Rhina Granados MD LAB POCT ORDERABLES - DEVICE Final Result Performing Organization Address [facility] de Phone Number [facility] [address] [facility] [place] [address] * POCT glucose (05/31/2021 8:[address] DESIGN ENGINEER) Glucose, POC 126 70 - 199 mg/dL [facility] Blood 05/31/2021 8:[address] DESIGN ENGINEER 05/31/2021 8:[address] DESIGN ENGINEER us Rhina Granados MD LAB POCT ORDERABLES - DEVICE Final Result [facility] [address] [place] [address] * XR Chest 1 Vw Portable (05/31/2021 6:[address] DESIGN ENGINEER) Anatomical Region Laterality Modality Body, Chest N/A Computed Radiogr aphy 05/31/2021 7:[address] DESIGN ENGINEER Impressions 05/31/2021 7:[address] DESIGN ENGINEER 1. ??No significant interval change from prior. 2. ??Multifocal bilateral airspace opacities most suggestive of Covid 19 pneumonia. 2. ??Stable mild cardiomegaly. Electronically signed by: Richard Lopez II, D.O. Narrative 05/31/2021 7:[address] DESIGN ENGINEER EXAMINATION: XR CHEST 1 VIEW DATE: 05/31/2021 [...] osseous abnormality. Procedure Note Richard Lopez II, DO - 05/31/2021 EXAMINATION: XR CHEST 1 VIEW [...] 2. Stable mild cardiomegaly. Electronically signed by: Delmer Leitman II, D.O. us Erika Mayer [employer] IMG XR PROCEDURES Luz l Result * eGFR (05/31/2021 5:[address] DESIGN ENGINEER) eGFR 123 mL/min/1.7 3 m2 [facility] Comment: Interpretive [...] last reviewed 2020 Blood 05/31/2021 5:[address] DESIGN ENGINEER 05/31/2021 6:[address] DESIGN ENGINEER us Silviano Huddleston [employer] LAB BLOOD ORDERABLES Final Result [facility] [address] [place] [address] * (ABNORMAL) Basic metabolic panel (05/31/2021 5:[address] DESIGN ENGINEER) Sodium 132(L) 135 - 145 mmol/L [facility] Potassium, pl 4.2 3.3 - 4.9 mmol/L [facility] Chloride 102 97 - 110 mmol/L [facility] CO2 18(L) 22 - 32 mmol/L [facility] Anion gap 12 2 - 15 mmol/L [facility] BUN 16 8 - 25 mg/dL [facility] Creatinine 0.46(L) 0.80 - 1.30 mg/dL [facility] NAM[facility] Glucose 118 70 - 199 mg/dL [facility] Comment: Interpretive Data Fasting glucose >/= 126 [...] 2017. Calcium 8.7 8.5 - 10.3 mg/dL [facility] Blood 05/31/2021 5:[address] DESIGN ENGINEER 05/31/2021 6:[address] DESIGN ENGINEER us Silviano Huddleston [employer] LAB BLOOD ORDERABLES Final Result [facility] [address] [place] [address] * (ABNORMAL) CBC without differential (05/31/2021 5:[address] DESIGN ENGINEER) WBC 18.4(H) 3.8 - 9.9 K/cumm [facility] Hgb 10.4(L) 13.0 - 17.5 g/dL [facility] Hct 32.1(L) 38.9 - 50.3 % [facility] Plt 470(H) 150 - 400 K/cumm [facility] MPV 11.3 9.1 - 12.3 fL [facility] RBC 3.46(L) 4.30 - 5.80 M/cumm [facility] MCV 92.8 81.3 - 96.4 fL [facility] MCH 30.1 27.1 - 33.3 pg [facility] MCHC 32.4 32.3 - 35.7 g/dL [facility] RDW CV 14.1 11.1 - 14.9 % [facility] NAMED [facility] RDW SD 46.8 35.7 - 48.1 fL [facility] NRBC abs 0.00 0.00 - 0.01 K/cumm [facility] Blood 05/31/2021 5:[address] DESIGN ENGINEER 05/31/2021 6:[address] DESIGN ENGINEER Silviano Huddleston [employer] LAB BLOOD ORDERABLES Final Result Performing Organization Address City/[facility] Co de Phone Number [facility] [address] [facility] [place] [address] * Magnesium (05/31/2021 5:[address] DESIGN ENGINEER) Magnesium 2.0 1.4 - 2.5 mg/dL [facility] Blood 05/31/2021 5:[address] DESIGN ENGINEER 05/31/2021 6:[address] DESIGN ENGINEER Silviano Huddleston [employer] LAB BLOOD ORDERABLES Final Result Performing Organization Address [facility] de Phone Number [facility] [id number] [address] [facility] [place] [address] * Phosphorus (05/31/2021 5:[address] DESIGN ENGINEER) Phosphorus, pl 2.7 2.3 - 4.5 mg/dL [facility] Blood 05/31/2021 5:[address] DESIGN ENGINEER 05/31/2021 6:[address] DESIGN ENGINEER Silviano Huddleston [employer] LAB BLOOD ORDERABLES Final Result Performing Organization Address [facility] de Phone Number [facility] [address] [address] [facility] [place] [address] * Vancomycin level trough Draw trough 30 minutes prior to dose. (05/31/2021 5:[address] DESIGN ENGINEER) Vancomycin trough 19.0 10.0 - 20.0 mcg/mL [facility] Blood 05/31/2021 5:[address] DESIGN ENGINEER 05/31/2021 10:[address] DESIGN ENGINEER Narrative H[facility]K - 05/31/2021 10:[address] DESIGN ENGINEER Draw trough 30 minutes prior to dose. us Lc Simons MD LAB BLOOD ORDERABLES Final R esult Performing Organization Address [facility] de Phone Number [facility] DON [address] [place] [address] * POCT glucose (05/30/2021 8:[address] DESIGN ENGINEER) Glucose, POC 193 70 - 199 mg/dL [facility] Blood 05/30/2021 8:[address] DESIGN ENGINEER 05/30/2021 8:[address] DESIGN ENGINEER Lc Simons MD LAB POCT ORDERABLES - DEVICE Final Result Performing Organization Address [facility] de Phone Number [facility] DON [address] [address] [place] [address] * Critical Care (05/30/2021 8:[address] DESIGN ENGINEER) Narrative Austin Hoffman MD - 05/30/2021 8:[address] DESIGN ENGINEER Marek Mei NP ? 05/31/2021 ??5:42 AM [...] plan with the ICU team and other medical/program evaluation consultant staff, making frequent assessments and decisions [...] documenting in the medical record Marek Mei [employer] IN CLINIC/BEDSIDE ORDER REJI Final Result * POCT glucose (05/30/2021 5:[address] DESIGN ENGINEER) Glucose, POC 162 70 - 199 mg/dL [facility] Blood 05/30/2021 5:[address] DESIGN ENGINEER 05/30/2021 5:[address] DESIGN ENGINEER Lc Simons MD LAB POCT ORDERABLES - DEVICE Final Result Performing Organization Address [facility] Co de Phone Number [facility] [address] [address] * POCT glucose (05/30/2021 12:[address] DESIGN ENGINEER) Glucose, POC 190 70 - 199 mg/dL [facility] Blood 05/30/2021 12:[address] DESIGN ENGINEER 05/30/2021 12:[address] DESIGN ENGINEER Lc Simons MD LAB POCT ORDERABLES - DEVICE Final Result Performing Organization Address [facility] Co de Phone Number [facility]IF[facility]LY NAMED [facility] [address] [place] [address] * POCT glucose (05/30/2021 7:[address] DESIGN ENGINEER) Glucose, POC 125 70 - 199 mg/dL [facility] Blood 05/30/2021 7:[address] DESIGN ENGINEER 05/30/2021 7:[address] DESIGN ENGINEER us Lc Simons MD LAB POCT ORDERABLES - DEVICE Final Result [facility] [address] [address] [place] [address] * Critical Care (05/30/2021 7:[address] DESIGN ENGINEER) Narrative Trinh Yeh MD - 05/30/2021 7:[address] DESIGN ENGINEER Erika Mayer NP ? 05/30/2021 ??6:47 PM [...] plan with the ICU team and other medical/program evaluation consultant staff, making frequent assessments and decisions [...] patient's inability to participate in decision making Erika Mayer [employer] IN CLINIC/BEDSIDE FAVIO KAUR Final Result * eGFR (05/30/2021 4:[address] DESIGN ENGINEER) [facility] eGFR 122 mL/min/1.7 3 m2 HEN[facility]K DON [...] last reviewed 2020 Blood 05/30/2021 4:[address] DESIGN ENGINEER 05/30/2021 4:[address] DESIGN ENGINEER Silviano Huddleston NP LAB BLOOD ORDERABLES Final Result [facility] [address] [place] [address] * (ABNORMAL) Basic metabolic panel (05/30/2021 4:[address] DESIGN ENGINEER) Sodium 131(L) 135 - 145 mmol/L [facility] Potassium, pl 4.0 3.3 - 4.9 mmol/L [facility] Chloride 100 97 - 110 mmol/L [facility] CO2 20(L) 22 - 32 mmol/L [facility] Anion gap 11 2 - 15 mmol/L [facility] BUN 20 8 - 25 mg/dL [facility] Creatinine 0.47(L) 0.80 - 1.30 mg/dL [facility] Glucose 144 70 - 199 mg/dL [facility] Comment: [...] 8.5 - 10.3 mg/dL [facility] Blood 05/30/2021 4:[address] DESIGN ENGINEER 05/30/2021 4:[address] DESIGN ENGINEER Silviano Yariel Brown [employer] LAB BLOOD ORDERABLES Final Result [facility] DON [address] [place] [address] * (ABNORMAL) CBC without differential (05/30/2021 4:[address] DESIGN ENGINEER) WBC 14.4(H) 3.8 - 9.9 K/cumm [facility] [...] K/cumm [facility] Blood 05/30/2021 4:[address] DESIGN ENGINEER 05/30/2021 4:[address] DESIGN ENGINEER Silviano Huddleston [employer] LAB BLOOD ORDERABLES Final Result Performing Organization Address City/[facility]/ZIP Co de Phone Number [facility] DON [address] [place] [address] * Magnesium (05/30/2021 4:[address] DESIGN ENGINEER) Magnesium 1.9 1.4 - 2.5 mg/dL [facility] NAMED [facility] Blood 05/30/2021 4:[address] DESIGN ENGINEER 05/30/2021 4:[address] DESIGN ENGINEER Silviano Huddleston [employer] LAB BLOOD ORDERABLES Final Result [facility] DON [address] [place] [address] * Phosphorus (05/30/2021 4:[address] DESIGN ENGINEER) Phosphorus, pl 2.4 2.3 - 4.5 mg/dL [facility] Blood 05/30/2021 4:[address] DESIGN ENGINEER 05/30/2021 4:[address] DESIGN ENGINEER Silviano Huddleston NP LAB BLOOD ORDERABLES Final Result Performing Organization Address [facility] [place] [address] [place] [address] * (ABNORMAL) POCT glucose (05/29/2021 9:[address] DESIGN ENGINEER) Glucose, POC 220(H) 70 - 199 mg/dL [facility] Blood 05/29/2021 9:[address] DESIGN ENGINEER 05/29/2021 9:[address] DESIGN ENGINEER Lc Simons MD LAB POCT ORDERABLES - DEVICE Final Result Performing Organization Address [facility] de Phone Number [facility]K [address] [place] [address] * Critical Care (05/29/2021 8:[address] DESIGN ENGINEER) Narrative Austin Hoffman MD - 05/29/2021 8:[address] DESIGN ENGINEER Marek Mei NP ? 05/30/2021 ??5:54 AM [...] plan with the ICU team and other medical/program evaluation consultant staff, making frequent assessments and decisions [...] in the medical record us Marek Mei [employer] IN CLINIC/BEDSIDE ORDER REJI Final Result * Vancomycin level trough Draw trough 30 minutes prior to 4th dose. (05/29/2021 5:[address] DESIGN ENGINEER) [facility] Vancomycin trough 13.8 10.0 - 20.0 mcg/mL [facility] Blood 05/29/2021 5:[address] DESIGN ENGINEER 05/29/2021 5:[address] DESIGN ENGINEER Narrative [facility] - 05/29/2021 5:[address] DESIGN ENGINEER Draw trough 30 minutes prior to 4th dose. Rosy Muñoz [employer] LAB BLOOD ORDERABLE S Final Result [facility] [address] [place] [address] * (ABNORMAL) POCT glucose (05/29/2021 4:[address] DESIGN ENGINEER) [facility] Glucose, POC 234(H) 70 - 199 mg/dL [facility] Blood 05/29/2021 4:[address] DESIGN ENGINEER 05/29/2021 4:[address] DESIGN ENGINEER Lc Simons MD LAB POCT ORDERABLES - DEVICE Final Result Performing Organization Address [facility] de Phone Number [facility] DON [address] [address] [facility] [place] [address] * Beta-hydroxybutyrate (05/29/2021 2:[address] DESIGN ENGINEER) Beta-Hydroxybut yrate <0.2 <=0.5 mmol/L [facility] Blood 05/29/2021 2:[address] DESIGN ENGINEER 05/29/2021 2:[address] DESIGN ENGINEER Elena Kelly NP LAB BLOOD ORDERABLES Final Result Performing Organization Address [facility] de Phone Number [facility]K [address] [address] [facility] [place] [address] * (ABNORMAL) POCT glucose (05/29/2021 11:[address] DESIGN ENGINEER) Glucose, POC 274(H) 70 - 199 mg/dL [facility] Blood 05/29/2021 11:[address] DESIGN ENGINEER 05/29/2021 11:[address] DESIGN ENGINEER Lc Simons MD LAB POCT ORDERABLES - DEVICE Final Result Performing Organization Address [facility] de Phone Number [facility]K [address] [address] [facility] [place] [address] * POCT glucose (05/29/2021 8:[address] DESIGN ENGINEER) Glucose, POC 91 70 - 199 mg/dL [facility] Blood 05/29/2021 8:[address] DESIGN ENGINEER 05/29/2021 8:[address] DESIGN ENGINEER Lc Simons MD LAB POCT ORDERABLES - DEVICE Final Result Performing Organization Address City/State/[place] [address] [facility] [place] [address] * Critical Care (05/29/2021 7:[address] DESIGN ENGINEER) Narrative Dominique Wilkinson MD - 05/29/2021 7:[address] DESIGN ENGINEER Elena Kelly NP ? 05/29/2021 ??6:26 PM [...] plan with the ICU team and other medical/program evaluation consultant staff, making frequent assessments and decisions [...] Final Result * eGFR (05/29/2021 5:[address] DESIGN ENGINEER) eGFR 133 mL/min/1.7 3 m2 [facility]K Comment: [...] last reviewed 2020 Blood 05/29/2021 5:[address] DESIGN ENGINEER 05/29/2021 6:[address] DESIGN ENGINEER us Silviano Huddleston NP LAB BLOOD ORDERABLES Final Result [facility] [address] [address] [place] [address] * (ABNORMAL) Basic metabolic panel (05/29/2021 5:[address] DESIGN ENGINEER) Sodium 130(L) 135 - 145 mmol/L [facility] Potassium, pl 4.1 3.3 - 4.9 mmol/L [facility] Chloride 101 97 - 110 mmol/L [facility] CO2 18(L) 22 - 32 mmol/L [facility] Anion gap 11 2 - 15 mmol/L [facility] BUN 18 8 - 25 mg/dL CERFORMERLY NAMED [facility] Creatinine 0.38(L) 0.80 - 1.30 mg/dL [facility] Glucose 105 70 - 199 mg/dL [facility] Comment: Interpretive Data Fasting glucose >/= 126 [...] 2017. Calcium 8.6 8.5 - 10.3 mg/dL [facility] Blood 05/29/2021 5:[address] DESIGN ENGINEER 05/29/2021 6:[address] DESIGN ENGINEER us Silviano Huddleston [employer] LAB BLOOD ORDERABLES Final Result [facility] [address] [address] [place] [address] * (ABNORMAL) CBC without differential (05/29/2021 5:[address] DESIGN ENGINEER) WBC 16.1(H) 3.8 - 9.9 K/cumm [facility] Hgb 10.1(L) 13.0 - 17.5 g/dL [facility] Hct 31.3(L) 38.9 - 50.3 % [facility] Plt 508(H) 150 - 400 K/cumm [facility] MPV 11.3 9.1 - 12.3 fL [facility] RBC 3.41(L) 4.30 - 5.80 M/cumm [facility] MCV 91.8 81.3 - 96.4 fL [facility] MCH 29.6 27.1 - 33.3 pg [facility] MCHC 32.3 32.3 - 35.7 g/dL [facility] RDW CV 13.7 11.1 - 14.9 % [facility] RDW SD 45.6 35.7 - 48.1 fL [facility] CH NRBC abs 0.00 0.00 - 0.01 K/cumm [facility] Blood 05/29/2021 5:[address] DESIGN ENGINEER 05/29/2021 5:[address] DESIGN ENGINEER Silviano Huddleston [employer] LAB BLOOD ORDERABLES Final Result [facility] [address] [facility] [place] [address] * Magnesium (05/29/2021 5:[address] DESIGN ENGINEER) Magnesium 1.8 1.4 - 2.5 mg/dL [facility] Blood 05/29/2021 5:[address] DESIGN ENGINEER 05/29/2021 6:[address] DESIGN ENGINEER Silviano Huddleston [employer] LAB BLOOD ORDERABLES Final Result Performing Organization Address [facility] Co de Phone Number [place] [address] [facility] [place] [address] * Phosphorus (05/29/2021 5:[address] DESIGN ENGINEER) Phosphorus, pl 2.7 2.3 - 4.5 mg/dL [facility] Blood 05/29/2021 5:[address] DESIGN ENGINEER 05/29/2021 6:[address] DESIGN ENGINEER Silviano Huddleston [employer] LAB BLOOD ORDERABLES Final Result Performing Organization Address [facility] Co de Phone Number HENRIK DON [address] [facility] [place] [address] * Critical Care (05/28/2021 10:[address] DESIGN ENGINEER) Narrative Austin Hoffman MD - 05/28/2021 10:[address] DESIGN ENGINEER Rosy Muñoz NP ? 05/28/2021 10:34 PM [...] plan with the ICU team and other medical/program evaluation consultant staff, making frequent assessments and decisions [...] time documenting in the medical record us Rosy Muñoz NP IN CLINIC/BEDSIDE O RDERABLES Final Result * (ABNORMAL) POCT glucose (05/28/2021 7:[address] DESIGN ENGINEER) [facility] Glucose, POC 205(H) 70 - 199 mg/dL [facility] Blood 05/28/2021 7:[address] DESIGN ENGINEER 05/28/2021 7:[address] DESIGN ENGINEER Lc Simons MD LAB POCT ORDERABLES - DEVICE Final Result Performing Organization Address [facility] de Phone Number [facility]RIK DON [address] [address] [facility] [place] [address] * (ABNORMAL) POCT glucose (05/28/2021 5:[address] DESIGN ENGINEER) Glucose, POC 244(H) 70 - 199 mg/dL [facility] NAMED [facility] Blood 05/28/2021 5:[address] DESIGN ENGINEER 05/28/2021 5:[address] DESIGN ENGINEER Lc Simons MD LAB POCT ORDERABLES - DEVICE Final Result Performing Organization Address [facility] de Phone Number HENRIK DON [address] [address] [facility] [place] [address] * POCT glucose (05/28/2021 11:[address] DESIGN ENGINEER) Glucose, POC 131 70 - 199 mg/dL [facility] Blood 05/28/2021 11:[address] DESIGN ENGINEER 05/28/2021 11:[address] DESIGN ENGINEER Lc Simons MD LAB POCT ORDERABLES - DEVICE Final Result Performing Organization Address [facility] de Phone Number [facility]RIK DON [address] [address] [facility] [place] [address] * Critical Care (05/28/2021 11:[address] DESIGN ENGINEER) Narrative Alejandro Gonzalez NP - 05/28/2021 11:[address] DESIGN ENGINEER Alejandro Gonzalez NP ? 05/28/2021 11:55 AM [...] plan with the ICU team and other medical/program evaluation consultant staff, making frequent assessments and decisions [...] Result * POCT glucose (05/28/2021 9:[address] DESIGN ENGINEER) Glucose, POC 117 70 - 199 mg/dL [facility] Blood 05/28/2021 9:[address] DESIGN ENGINEER 05/28/2021 9:[address] DESIGN ENGINEER Lc Simons MD LAB POCT ORDERABLES - DEVICE Final Result [facility] DON [address] [address] [place] [address] * POCT glucose (05/28/2021 6:[address] DESIGN ENGINEER) Glucose, POC 121 70 - 199 mg/dL [facility] Blood 05/28/2021 6:[address] DESIGN ENGINEER 05/28/2021 6:[address] DESIGN ENGINEER us Lc Simons MD LAB POCT ORDERABLES - DEVICE Final Result [facility] DON [address] [place] [address] * XR Chest 1 Vw Portable (05/28/2021 6:[address] DESIGN ENGINEER) Anatomical Region Laterality Modality Body, Chest N/A Computed Radiogr aphy 05/28/2021 8:[address] DESIGN ENGINEER Impressions 05/28/2021 8:[address] DESIGN ENGINEER Slight improved aeration especially in the left lung.. Electronically signed by: Deacon Cummings M.D. Narrative 05/28/2021 8:[address] DESIGN ENGINEER EXAMINATION: XR CHEST 1 VIEW DATE: 05/28/2021 [...] lt * POCT glucose (05/28/2021 4:[address] DESIGN ENGINEER) Glucose, POC 116 70 - 199 mg/dL [facility] Blood 05/28/2021 4:[address] DESIGN ENGINEER 05/28/2021 4:[address] DESIGN ENGINEER us Lc Simons MD LAB POCT ORDERABLES - DEVICE Final Result Performing Organization Address City/[facility] Co de Phone Number HENRIK DON [address] [address] [employer] [facility] [place], [place] [id number] * eGFR (05/28/2021 2:[address] DESIGN ENGINEER) eGFR 130 mL/min/1.7 3 m2 [facility] Comment: Interpretive Data [...] last reviewed 2020 Blood 05/28/2021 2:[address] DESIGN ENGINEER 05/28/2021 3:[address] DESIGN ENGINEER us Silviano Huddleston [employer] LAB BLOOD ORDERABLES Final Result Performing Organization Address City/[facility] Co de Phone Number HENRIK DON [address] [address] [place] [address] * (ABNORMAL) Basic metabolic panel (05/28/2021 2:[address] DESIGN ENGINEER) Sodium 135 135 - 145 mmol/L [facility] Potassium, pl 3.7 3.3 - 4.9 mmol/L [facility] Chloride 107 97 - 110 mmol/L [facility] CO2 17(L) 22 - 32 mmol/L [facility] Anion gap 11 2 - 15 mmol/L [facility] BUN 19 8 - 25 mg/dL [facility] Creatinine 0.40(L) 0.80 - 1.30 mg/dL [facility] Glucose 68(L) 70 - 199 mg/dL [facility] Comment: Interpretive [...] 2017. Calcium 7.7(L) 8.5 - 10.3 mg/dL [facility] Blood 05/28/2021 2:[address] DESIGN ENGINEER 05/28/2021 3:[address] DESIGN ENGINEER Silviano Huddleston [employer] LAB BLOOD ORDERABLES Final Result [facility] [address] [address] [place] [address] * (ABNORMAL) CBC without differential (05/28/2021 2:[address] DESIGN ENGINEER) WBC 12.1(H) 3.8 - 9.9 K/cumm [facility] Hgb 11.2(L) 13.0 - 17.5 g/dL [facility] Hct 34.3(L) 38.9 - 50.3 % [facility] Plt 468(H) 150 - 400 K/cumm [facility] MPV 11.0 9.1 - 12.3 fL [facility] RBC 3.74(L) 4.30 - 5.80 M/cumm [facility] CH MCV 91.7 81.3 - 96.4 fL [facility] CH MCH 29.9 27.1 - 33.3 pg [facility] CH MCHC 32.7 32.3 - 35.7 g/dL [facility] CH RDW CV 13.3 11.1 - 14.9 % [facility] CH RDW SD 43.7 35.7 - 48.1 fL [facility] CH NRBC abs 0.00 0.00 - 0.01 K/cumm [facility] Blood 05/28/2021 2:[address] DESIGN ENGINEER 05/28/2021 3:[address] DESIGN ENGINEER Silviano Huddleston [employer] LAB BLOOD ORDERABLES Final Result Performing Organization Address [facility] Co de Phone Number [facility] [address] [address] [facility] [place] [address] * Magnesium (05/28/2021 2:[address] DESIGN ENGINEER) Magnesium 1.5 1.4 - 2.5 mg/dL [facility] Blood 05/28/2021 2:[address] DESIGN ENGINEER 05/28/2021 3:[address] DESIGN ENGINEER Silviano Huddleston [employer] LAB BLOOD ORDERABLES Final Result Performing Organization Address [facility] Co de Phone Number [facility] [address] [address] [facility] [place] [address] * Phosphorus (05/28/2021 2:[address] DESIGN ENGINEER) Phosphorus, pl 2.7 2.3 - 4.5 mg/dL [facility] Blood 05/28/2021 2:[address] DESIGN ENGINEER 05/28/2021 3:[address] DESIGN ENGINEER Silviano Huddleston [employer] LAB BLOOD ORDERABLES Final Result Performing Organization Address [facility] Co de Phone Number [facility] [address] [address] [facility] [place] [address] * (ABNORMAL) Vancomycin level trough Draw trough 30 minutes prior to dose. (05/28/2021 2:[address] DESIGN ENGINEER) Vancomycin trough 9.3(L) 10.0 - 20.0 mcg/mL [facility] Blood 05/28/2021 2:[address] DESIGN ENGINEER 05/28/2021 3:[address] DESIGN ENGINEER Narrative [facility] - 05/28/2021 3:[address] DESIGN ENGINEER Draw trough 30 minutes prior to dose. Rosy Muñoz NP LAB BLOOD ORDERABLE S Final Result Performing Organization Address [facility] Co de Phone Number [facility] [address] [address] [facility] [place] [address] * POCT glucose (05/28/2021 1:[address] DESIGN ENGINEER) Glucose, POC 109 70 - 199 mg/dL [facility] Blood 05/28/2021 1:[address] DESIGN ENGINEER 05/28/2021 1:[address] DESIGN ENGINEER Lc Simons MD LAB POCT ORDERABLES - DEVICE Final Result Performing Organization Address [facility] Co de Phone Number [facility] [address] [address] [place] [address] * POCT glucose (05/27/2021 10:[address] DESIGN ENGINEER) Glucose, POC 83 70 - 199 mg/dL [facility] Blood 05/27/2021 10:[address] DESIGN ENGINEER 05/27/2021 10:[address] DESIGN ENGINEER Lc Simons MD LAB POCT ORDERABLES - DEVICE Final Result Performing Organization Address [facility] Co de Phone Number [facility] [address] [address] [facility] [place] [address] * Critical Care (05/27/2021 8:[address] DESIGN ENGINEER) Narrative Austin Hoffman MD - 05/27/2021 8:[address] DESIGN ENGINEER Rosy Muñoz NP ? 05/28/2021 ??5:37 AM [...] plan with the ICU team and other medical/program evaluation consultant staff, making frequent assessments and decisions [...] time documenting in the medical record us Rosy Muñoz NP IN CLINIC/BEDSIDE O RDERABLES Final Result * POCT glucose (05/27/2021 5:[address] DESIGN ENGINEER) Glucose, POC 186 70 - 199 mg/dL [facility] DON Blood 05/27/2021 5:[address] DESIGN ENGINEER 05/27/2021 5:[address] DESIGN ENGINEER us Lc Simons MD LAB POCT ORDERABLES - DEVICE Final Result [facility] [address] [facility] [place] [address] * Critical Care (05/27/2021 2:[address] DESIGN ENGINEER) Narrative Dominique Wilkinson MD - 05/27/2021 2:[address] DESIGN ENGINEER Alejandro Gonzalez NP ? 05/27/2021 ??2:46 PM [...] plan with the ICU team and other medical/program evaluation consultant staff, making frequent assessments and decisions [...] Result * POCT glucose (05/27/2021 12:[address] DESIGN ENGINEER) Glucose, POC 164 70 - 199 mg/dL [facility] Blood 05/27/2021 12:[address] DESIGN ENGINEER 05/27/2021 12:[address] DESIGN ENGINEER Lc Simons MD LAB POCT ORDERABLES - DEVICE Final Result Performing Organization Address City/[facility]/ZIP Co de Phone Number [facility] [address] [address] [facility] [place] [address] * POCT glucose (05/27/2021 8:[address] DESIGN ENGINEER) Glucose, POC 87 70 - 199 mg/dL [facility] Blood 05/27/2021 8:[address] DESIGN ENGINEER 05/27/2021 8:[address] DESIGN ENGINEER Rhina Granados MD LAB POCT ORDERABLES - DEVICE Final Result Performing Organization Address [facility] Co de Phone Number [facility] [address] [facility] [place] [address] * POCT glucose (05/27/2021 6:[address] DESIGN ENGINEER) Glucose, POC 102 70 - 199 mg/dL [facility] Blood 05/27/2021 6:[address] DESIGN ENGINEER 05/27/2021 6:[address] DESIGN ENGINEER Rhina Granados MD LAB POCT ORDERABLES - DEVICE Final Result Performing Organization Address City/[facility] Co de Phone Number [facility] [address] [address] * eGFR (05/27/2021 6:[address] DESIGN ENGINEER) eGFR 127 mL/min/1.7 3 m2 [facility] CH Comment: Interpretive [...] last reviewed 2020 Blood 05/27/2021 6:[address] DESIGN ENGINEER 05/27/2021 6:[address] DESIGN ENGINEER us Silviano Huddleston [employer] LAB BLOOD ORDERABLES Final Result [facility] [address] [place] [address] * (ABNORMAL) Basic metabolic panel (05/27/2021 6:[address] DESIGN ENGINEER) Pathologist [facility] Sodium 130(L) 135 - 145 mmol/L [facility] CH Potassium, pl 4.6 3.3 - 4.9 mmol/L [facility] CH Chloride 100 97 - 110 mmol/L [facility] CH CO2 20(L) 22 - 32 mmol/L [facility] Anion gap 10 2 - 15 mmol/L [facility] BUN 22 8 - 25 mg/dL [facility] Creatinine 0.42(L) 0.80 - 1.30 mg/dL [facility] Glucose 183 70 - 199 mg/dL [facility] Comment: Interpretive Data Fasting glucose >/= 126 [...] 2017. Calcium 8.9 8.5 - 10.3 mg/dL [facility] Blood 05/27/2021 6:[address] DESIGN ENGINEER 05/27/2021 6:[address] DESIGN ENGINEER us Silviano Huddleston [employer] LAB BLOOD ORDERABLES Final Result [facility] [address] [place] [address] * (ABNORMAL) CBC without differential (05/27/2021 6:[address] DESIGN ENGINEER) WBC 13.5(H) 3.8 - 9.9 K/cumm [facility] Hgb 9.9(L) 13.0 - 17.5 g/dL [facility] Hct 29.8(L) 38.9 - 50.3 % [facility] Plt 519(H) 150 - 400 K/cumm [facility] MPV 11.0 9.1 - 12.3 fL [facility] RBC 3.23(L) 4.30 - 5.80 M/cumm [facility] MCV 92.3 81.3 - 96.4 fL [facility] MCH 30.7 27.1 - 33.3 pg [facility] MCHC 33.2 32.3 - 35.7 g/dL [facility] RDW CV 13.5 11.1 - 14.9 % [facility] RDW SD 45.3 35.7 - 48.1 fL [facility] NRBC abs 0.00 0.00 - 0.01 K/cumm [facility] NAMED [facility] Blood 05/27/2021 6:[address] DESIGN ENGINEER 05/27/2021 6:[address] DESIGN ENGINEER Silviano Huddleston [employer] LAB BLOOD ORDERABLES Final Result Performing Organization Address [facility] de Phone Number [facility]RI[facility] DON [address] [place] [address] * Magnesium (05/27/2021 6:[address] DESIGN ENGINEER) Magnesium 1.7 1.4 - 2.5 mg/dL [facility]AM[facility] Blood 05/27/2021 6:[address] DESIGN ENGINEER 05/27/2021 6:[address] DESIGN ENGINEER Silviano Huddleston [employer] LAB BLOOD ORDERABLES Final Result Performing Organization Address [facility] de Phone Number HENRIK DON [address] [facility] [place] [address] * Phosphorus (05/27/2021 6:[address] DESIGN ENGINEER) Phosphorus, pl 3.0 2.3 - 4.5 mg/dL [facility] Blood 05/27/2021 6:[address] DESIGN ENGINEER 05/27/2021 6:[address] DESIGN ENGINEER Silviano Huddleston [employer] LAB BLOOD ORDERABLES Final Result Performing Organization Address [facility] de Phone Number [facility]RI[facility] DON [address] [facility] [place] [address] * XR Chest 1 Vw Portable (05/27/2021 5:[address] DESIGN ENGINEER) Anatomical Region Laterality Modality Body, Chest N/A Computed Radiogr aphy 05/27/2021 8:[address] DESIGN ENGINEER Impressions 05/27/2021 8:[address] DESIGN ENGINEER Persistent bilateral infiltrates unchanged, worse on the left than the right. Electronically signed by: Deacon Cummings M.D. Narrative 05/27/2021 8:[address] DESIGN ENGINEER EXAMINATION: XR CHEST 1 VIEW DATE: 05/27/2021 [...] lt * POCT glucose (05/27/2021 12:[address] DESIGN ENGINEER) Glucose, POC 118 70 - 199 mg/dL [facility] Blood 05/27/2021 12:[address] DESIGN ENGINEER 05/27/2021 12:[address] DESIGN ENGINEER Rhina Granados MD LAB POCT ORDERABLES - DEVICE Final Result Performing Organization Address [facility] Co de Phone Number HENRIK [address] [facility] [place] [address] * POCT glucose (05/26/2021 10:[address] DESIGN ENGINEER) Glucose, POC 93 70 - 199 mg/dL [facility] Blood 05/26/2021 10:[address] DESIGN ENGINEER 05/26/2021 10:[address] DESIGN ENGINEER Rhina Granados MD LAB POCT ORDERABLES - DEVICE Final Result Performing Organization Address [facility] Co de Phone Number HENRIK DON [address] [place] [address] * Critical Care (05/26/2021 9:[address] DESIGN ENGINEER) Narrative Frank Dugan MD - 05/26/2021 9:[address] DESIGN ENGINEER Frank Dugan MD ? 05/26/2021 10:02 PM [...] plan with the ICU team and other medical/program evaluation consultant staff, making frequent assessments and decisions [...] Result * POCT glucose (05/26/2021 5:[address] DESIGN ENGINEER) Glucose, POC 159 70 - 199 mg/dL [facility] DON Blood 05/26/2021 5:[address] DESIGN ENGINEER 05/26/2021 5:[address] DESIGN ENGINEER Rhina Granados MD LAB POCT ORDERABLES - DEVICE Final Result HENRIK [address] [facility] [place] [address] * Critical Care (05/26/2021 4:[address] DESIGN ENGINEER) Narrative Dominique Wilkinson MD - 05/26/2021 4:[address] DESIGN ENGINEER Rosy Muñoz NP ? 05/26/2021 ??7:39 PM [...] plan with the ICU team and other medical/program evaluation consultant staff, making frequent assessments and decisions [...] (ABNORMAL) Urinalysis, microscopic only (05/26/2021 4:[address] DESIGN ENGINEER) WBC, ur 11-20(A) 0 - 5 /HPF [facility] CH RBC, ur >50(A) 0 - 2 /HPF [facility] CH Bacteria, ur Trace(A) [facility] CH Yeast, ur 4+(A) [facility] CH Urine 05/26/2021 4:[address] DESIGN ENGINEER 05/26/2021 4:[address] DESIGN ENGINEER Rosy Muñoz NP LAB URINE ORDERABLE S Final Result [facility] [address] [place] [address] * (ABNORMAL) Urinalysis reflex to microscopic (05/26/2021 4:[address] DESIGN ENGINEER) Color, ur Yellow Yellow [facility] CH Clarity, [...] mg/dL [facility] CH Nitrite, ur Negative Negative [facility] Leukocyte esterase, ur 1+(A) Negative [facility] UA reflex comment Reflex to microscopic UA will be performed. [facility] Urine 05/26/2021 4:[address] DESIGN ENGINEER 05/26/2021 4:[address] DESIGN ENGINEER Narrative [facility] - 05/26/2021 4:[address] DESIGN ENGINEER ?? Urine pH is affected by diet, medications, systemic acid-base disturbances, and renal tubular function. ??pH may affect urinary stone formation. ??For example, urine pH below 6.0 may help reduce the tendency for calcium phosphate stones and pH greater than 6.0 may reduce the tendency for uric acid stone formation. Source: [facility]. Last revised 06-30-2017 Rosy Muñoz NP LAB URINE ORDERABLE S Final Result Performing Organization Address [facility] Phone Number [facility] [address] [facility] [place] [address] * Strep pneumoniae antigen, urine Urine (05/26/2021 4:[address] DESIGN ENGINEER) S. pneumoniae Ag Negative Negative [facility] Comment: A negative result is a presumptive [...] of the patient. Urine 05/26/2021 4:[address] DESIGN ENGINEER 05/26/2021 4:[address] DESIGN ENGINEER Rosy Muñoz NP LAB MICROBIOLOGY - GENERAL ORDERABLES Final Result Performing Organization Address [facility] de Phone Number [facility] [address] [facility] [place] [address] * Legionella antigen Urine (05/26/2021 4:[address] DESIGN ENGINEER) Legionella Ag Negative Negative [facility] DON Comment: Interpretive Data This test detects only Legionella pneumophila serogroup 1 antigen. ?? Current interpretive data was last revised on 2019. Urine 05/26/2021 4:[address] DESIGN ENGINEER 05/26/2021 4:[address] DESIGN ENGINEER Rosy Muñoz NP LAB MICROBIOLOGY - GENERAL ORDERABLES Final Result [facility]K [address] [place] [address] * Blood culture Blood Antecubital, right (05/26/2021 1:[address] DESIGN ENGINEER) Report Final Report: No growth [facility] DON Comment:Testing performed by : [facility], [address] [place]., [address] Blood (Antecubital, right) 05/26/2021 1:[address] DESIGN ENGINEER 05/26/2021 6:[address] DESIGN ENGINEER Narrative HENRIK - 05/31/2021 7:[address] DESIGN ENGINEER From a different site than #1. 1. [...] organism identification may be performed using the Brain[employer] TVigene Gram-Positive Blood Culture Assay. This assay detects microbial DNA in positive blood culture broth via hybridization of target DNA to capture oligonucleotides on a microarray. This assay has been cleared by the [place] Food and Drug Administration and its performance characteristics have been verified by the [facility]. 5. ?For questions about this culture, contact the Microbiology Laboratory at [phone]. Interpretive data was last revised on 2019. Rosy Muñoz NP LAB MICROBIOLOGY - GENERAL ORDERABLES Final Result [facility] DON [address] [place] [address] * Blood culture Blood Antecubital, left (05/26/2021 1:[address] DESIGN ENGINEER) Report Final Report: No growth [facility]RIK DON Comment:Testing performed by : [facility], [address] [place] [address]., [address] Blood (Antecubital, left) 05/26/2021 1:[address] DESIGN ENGINEER 05/26/2021 6:[address] DESIGN ENGINEER Narrative HENRIK DON - 05/31/2021 7:[address] DESIGN ENGINEER 1. ?Blood cultures are incubated for 4 [...] organism identification may be performed using the Brainiac TVigene Gram-Positive Blood Culture Assay. This assay detects microbial DNA in positive blood culture broth via hybridization of target DNA to capture oligonucleotides on a microarray. This assay has been cleared by the [place] Food and Drug Administration and its performance characteristics have been verified by the [facility]. 5. ?For questions about this culture, contact the Microbiology Laboratory at [phone]. Interpretive data was last revised on 2019. Rosy Muñoz NP LAB MICROBIOLOGY - GENERAL ORDERABLES Final Result Performing Organization Address [facility] Co de Phone Number HENRIK [address] [address] * MRSA Only (Staphylococcs aureus) PCR Nasal (05/26/2021 1:[address] DESIGN ENGINEER) [facility] PCR Scrn, Methicillin resistant Staphylococcus aureus (MRSA) Not Detected Not Detected [facility] Comment: Testing performed using Nucleic Acid Amplification with the [employer] (PVT)id Xpert MRSA Assay. This assay detects DNA from SCCmec strains of Staphylococcus aureus using Real- Time PCR and has been cleared by the FDA. Performance characteristics have been verified by the [facility]. Nasal 05/26/2021 1:[address] DESIGN ENGINEER 05/26/2021 1:[address] DESIGN ENGINEER Result [facility] Rosy Muñoz NP LAB MICROBIOLOGY - GENERAL ORDERABLES Final Result Performing Organization Address [facility] Co de Phone Number SHARIF[facility]ASON [address] [place] [address] * (ABNORMAL) POCT glucose (05/26/2021 1:[address] DESIGN ENGINEER) [facility] Glucose, POC 237(H) 70 - 199 mg/dL [facility] Blood 05/26/2021 1:[address] DESIGN ENGINEER 05/26/2021 1:[address] DESIGN ENGINEER Result [facility] Rhina Granados MD LAB POCT ORDERABLES - DEVICE Final Result Performing Organization Address [facility] Co de Phone Number [facility] [address] [place] [address] * (ABNORMAL) Pneumonia PCR Sputum Lung (05/26/2021 11:[address] DESIGN ENGINEER) C. pneumoniae DNA Not Detected Not Detected [facility]ER Comment:Testing performed by : [facility], [address] [facility], [address] Legionella pneumophila DNA Not Detected Not Detected [facility]ER CH Comment:Testing performed by : [facility], [address] [facility], [address] M. pneumoniae DNA Not Detected Not Detected C[facility]ER CH Comment:Testing performed by : [facility], [address] [facility], [address] Adenovirus DNA Not Detected Not Detected [facility] CH Comment:Testing performed by : [facility], [address] [place] [address]., [address] Coronavirus (229E, OC43, HKU1, NL63) RNA Not Detected Not Detected C[facility]ER CH Comment:Testing performed by : [facility], [address] [facility], [address] Metapneumovirus RNA Not Detected Not Detected [facility]ER Comment:Testing performed by : [facility], [address] [place] [address], [address] Rhinovirus/Enterov irus RNA Detected(A) Not Detected [facility] CH Comment:Testing performed by : [facility], [address] [place] [address], [address] Influenza A RNA Not Detected Not Detected [facility]ER CH Comment:Testing performed by : [facility], [address] [place] [address], [address] Influenza B RNA Not Detected Not Detected C[facility]ER CH Comment:Testing performed by : [facility], [address] [place] [address]., [address] Parainfluenza virus (1-4) RNA Not Detected Not Detected [facility] CH Comment:Testing performed by : [facility], [address] [place] [address], [address] RSV RNA Not Detected Not Detected CERNER CH Comment:Testing performed by : [facility], [address] [facility], [place]., [address] Sputum (Lung) 05/26/2021 11: [address] DESIGN ENGINEER 05/26/2021 4:[address] DESIGN ENGINEER Narrative HENRIK DON - 05/26/2021 5:[address] DESIGN ENGINEER The [employer] Pneumonia Panel is a multiplexed [...] of this assay have been determined by [facility]. Current interpretive data was last revised on 2021. Rosy Muñoz NP LAB MICROBIOLOGY - GENERAL ORDERABLES Final Result HENRIK DON [address] [place] [address] * (ABNORMAL) Pneumonia PCR with aerobic culture and Gram stain Sputum Lung (05/26/2021 11:[address] DESIGN ENGINEER) Direct Specimen Exam Molecular Analysis: Greater than or equal to 10^7 copies/mL Moraxella catarrhalis 10^5 copies/mL Haemophilus influenzae 10^4 copies/mL Staphylococcus aureus Methicillin resistant Staphylococcus aureus (MRSA) detected by molecular analysis. Correlation of molecular analysis with final culture results is recommended. [facility] Comment:Testing performed by : [facility], [address] [place]., [address] Direct Specimen Exam Stain: Few polymorphonuclear leukocytes seen. Few squamous epithelial cells seen. Abundant mixed bacterial tirso seen on Gram stain. [facility] Comment:Testing performed by : [facility], [address] [facility], [address] Report Final Report: Growth indicates upper respiratory tirso. (.) [facility] Comment:Testing performed by : [facility], [address] [facility], [address] Organism GROWTH INDICATES UPPER RESPIRATORY TIRSO. [facility] Sputum (Lung) 05/26/2021 11: [address] DESIGN ENGINEER 05/26/2021 3:[address] DESIGN ENGINEER Narrative [facility] - 05/29/2021 1:[address] DESIGN ENGINEER When rapid molecular testing results are reported, testing completed using the [employer] Pneumonia Panel. ??This molecular assay detects: Acinetobacter [...] results and susceptibility testing is recommended. The FilmArray Pneumonia Panel is cleared by the [place] Food and Drug Administration and its performance characteristics have been confirmed by the [facility]. ??The performance of the FilmArray Pneumonia Panel has not been established for monitoring treatment of infection and bacterial nucleic acids may persist independent of organism viability. Rosy Muñoz NP LAB MICROBIOLOGY - GENERAL ORDERABLES Final Result Performing Organization Address [facility] Co de Phone Number [facility] [address] [place] [address] * POCT glucose (05/26/2021 8:[address] DESIGN ENGINEER) Glucose, POC 95 70 - 199 mg/dL [facility] Blood 05/26/2021 8:[address] DESIGN ENGINEER 05/26/2021 8:[address] DESIGN ENGINEER Rhina Granados MD LAB POCT ORDERABLES - DEVICE Final Result Performing Organization Address [facility] de Phone Number [facility] [address] [facility] [place] [address] * POCT glucose (05/26/2021 6:[address] DESIGN ENGINEER) Glucose, POC 74 70 - 199 mg/dL [facility] Blood 05/26/2021 6:[address] DESIGN ENGINEER 05/26/2021 6:[address] DESIGN ENGINEER Rhina Granados MD LAB POCT ORDERABLES - DEVICE Final Result Performing Organization Address [facility] de Phone Number [facility] [address] [facility] [place] [address] * eGFR (05/26/2021 6:[address] DESIGN ENGINEER) eGFR 121 mL/min/1.7 3 m2 [facility] Comment: Interpretive Data Reference Interval Normal ?>/= [...] last reviewed 2020 Blood 05/26/2021 6:[address] DESIGN ENGINEER 05/26/2021 7:[address] DESIGN ENGINEER Silviano Huddleston [employer] LAB BLOOD ORDERABLES Final Result Performing Organization Address [facility] de Phone Number HENRIK FLORENCIA [address] [place] [address] * (ABNORMAL) CRP (acute phase) (05/26/2021 6:[address] DESIGN ENGINEER) CRP 16.0(H) <=10.0 mg/L [facility] Blood 05/26/2021 6:[address] DESIGN ENGINEER 05/26/2021 6:[address] DESIGN ENGINEER Frank Dugan MD LAB BLOOD ORDERABLES Final R esult Performing Organization Address [facility] de Phone Number HENRIK [address] [address] * (ABNORMAL) D-dimer, quantitative (05/26/2021 6:[address] DESIGN ENGINEER) D-Dimer 3,194(H) <=499 ng/mL FEU [facility] Comment: Interpretive data FDA approved the D-dimer, [...] 68, VTE cut-off 680 ng/ml FEU. References; Schouten HT et al. Brit Med J. 2013;346:f2492. Mando et al. Annals Int Med. 2015;163:701-11. Current interpretive data was last revised on 2019. Blood 05/26/2021 6:[address] DESIGN ENGINEER 05/26/2021 6:[address] DESIGN ENGINEER us Frank Dugan MD LAB BLOOD ORDERABLES Final R esult [facility] [address] [place] [address] * (ABNORMAL) Basic metabolic panel (05/26/2021 6:[address] DESIGN ENGINEER) Sodium 136 135 - 145 mmol/L [facility] Potassium, pl 4.4 3.3 - 4.9 mmol/L [facility] Chloride 101 97 - 110 mmol/L [facility] CH CO2 22 22 - 32 mmol/L [facility] Anion gap 13 2 - 15 mmol/L [facility] BUN 22 8 - 25 mg/dL [facility] Creatinine 0.48(L) 0.80 - 1.30 mg/dL [facility] Glucose 77 70 - 199 mg/dL [facility] Comment: Interpretive Data Fasting glucose >/= 126 [...] 2017. Calcium 9.1 8.5 - 10.3 mg/dL [facility] NAMED [facility] Blood 05/26/2021 6:[address] DESIGN ENGINEER 05/26/2021 6:[address] DESIGN ENGINEER Silviano Huddleston [employer] LAB BLOOD ORDERABLES Final Result Performing Organization Address City/[facility]/ZIP Co de Phone Number [facility] [address] [place] [address] * (ABNORMAL) CBC without differential (05/26/2021 6:[address] DESIGN ENGINEER) WBC 14.0(H) 3.8 - 9.9 K/cumm [facility] Hgb 10.7(L) 13.0 - 17.5 g/dL [facility] NAMED [facility] Hct 32.6(L) 38.9 - 50.3 % [facility] Plt 535(H) 150 - 400 K/cumm [facility] MPV 11.6 9.1 - 12.3 fL [facility] RBC 3.56(L) 4.30 - 5.80 M/cumm [facility] MCV 91.6 81.3 - 96.4 fL [facility] MCH 30.1 27.1 - 33.3 pg [facility] MCHC 32.8 32.3 - 35.7 g/dL [facility] RDW CV 13.5 11.1 - 14.9 % [facility] RDW SD 44.8 35.7 - 48.1 fL [facility] NRBC abs 0.00 0.00 - 0.01 K/cumm [facility] Blood 05/26/2021 6:[address] DESIGN ENGINEER 05/26/2021 6:[address] DESIGN ENGINEER Silviano Huddleston NP LAB BLOOD ORDERABLES Final Result [facility]RIK DON [address] [facility] [place] [address] * Magnesium (05/26/2021 6:[address] DESIGN ENGINEER) Magnesium 2.1 1.4 - 2.5 mg/dL [facility] Blood 05/26/2021 6:[address] DESIGN ENGINEER 05/26/2021 6:[address] DESIGN ENGINEER Silviano Huddleston [employer] LAB BLOOD ORDERABLES Final Result Performing Organization Address [facility] Co de Phone Number HENRIK [address] [address] [facility] [place] [address] * Phosphorus (05/26/2021 6:[address] DESIGN ENGINEER) Phosphorus, pl 3.7 2.3 - 4.5 mg/dL [facility] Blood 05/26/2021 6:[address] DESIGN ENGINEER 05/26/2021 6:[address] DESIGN ENGINEER Silviano Huddleston [employer] LAB BLOOD ORDERABLES Final Result Performing Organization Address [facility] Co de Phone Number HENRIK DON [address] [place] [address] * XR Chest 1 Vw Portable (05/26/2021 6:[address] DESIGN ENGINEER) Anatomical Region Laterality Modality Body, Chest N/A Computed Radiogr aphy 05/26/2021 7:[address] DESIGN ENGINEER Impressions 05/26/2021 7:[address] DESIGN ENGINEER Decreasing infiltrate left lung. Electronically signed by: Deacon Cummings M.D. Narrative 05/26/2021 7:[address] DESIGN ENGINEER EXAMINATION: XR CHEST 1 VIEW DATE: 05/26/2021 [...] lung. Electronically signed by: Deacon Cummings M.D. Rhina Granados MD IMG XR PROCEDURES Final Resu lt * POCT glucose (05/25/2021 11:[address] DESIGN ENGINEER) Glucose, POC 101 70 - 199 mg/dL [facility] DON Blood 05/25/2021 11:[address] DESIGN ENGINEER 05/25/2021 11:[address] DESIGN ENGINEER Rhina Granados MD LAB POCT ORDERABLES - DEVICE Final Result Performing Organization Address City/State/[facility] Co de Phone Number HENRIK [address] [place] [address] * Critical Care (05/25/2021 9:[address] DESIGN ENGINEER) Narrative Frank Dugan MD - 05/25/2021 9:[address] DESIGN ENGINEER Frank Dugan MD ? 05/26/2021 ??1:21 AM [...] plan with the ICU team and other medical/program evaluation consultant staff, making frequent assessments and decisions [...] Final * POCT glucose (05/25/2021 8:[address] DESIGN ENGINEER) Glucose, POC 192 70 - 199 mg/dL [facility] Blood 05/25/2021 8:[address] DESIGN ENGINEER 05/25/2021 8:[address] DESIGN ENGINEER Rhina Granados MD LAB POCT ORDERABLES - DEVICE Final Result Performing Organization Address [facility] Co de Phone Number [facility] [address] Department [place] [address] * POCT glucose (05/25/2021 5:[address] DESIGN ENGINEER) Glucose, POC 134 70 - 199 mg/dL [facility] Blood 05/25/2021 5:[address] DESIGN ENGINEER 05/25/2021 5:[address] DESIGN ENGINEER Rhina Granados MD LAB POCT ORDERABLES - DEVICE Final Result Performing Organization Address [facility] Co de Phone Number HENRIK [address] [facility] [place] [address] * Critical Care (05/25/2021 4:[address] DESIGN ENGINEER) Narrative Dominique Wilkinson MD - 05/25/2021 4:[address] DESIGN ENGINEER Rosy Muñoz NP ? 05/25/2021 ??8:02 PM [...] plan with the ICU team and other medical/program evaluation consultant staff, making frequent assessments and decisions [...] time documenting in the medical record us Rosy Muñoz NP IN CLINIC/BEDSIDE O RDERABLES Final Result * POCT glucose (05/25/2021 12:[address] DESIGN ENGINEER) Glucose, POC 158 70 - 199 mg/dL SHARIFAMASON DON Blood 05/25/2021 12:[address] DESIGN ENGINEER 05/25/2021 12:[address] DESIGN ENGINEER us Rhina Granados MD LAB POCT ORDERABLES - DEVICE Final Result HNERIK DON [address] [place] [address] * CT Chest PE (CTA) W Contrast (05/25/2021 10:[address] DESIGN ENGINEER) Anatomical Region Laterality Modality Body N/A Computed Tomogra phy 05/25/2021 10:[address] DESIGN ENGINEER Impressions 05/25/2021 10:[address] DESIGN ENGINEER 1. ??No pulmonary embolus. 2. ??Similar diffuse groundglass opacities and consolidation suggestive of multifocal Covid 19 pneumonia 3. ??Severe centrilobular emphysematous changes. 4. ??Prior coronary artery bypass graft. 5. ??Additional chronic or incidental findings as above. Electronically signed by: Richard Lopez II, D.O. Narrative 05/25/2021 10:[address] DESIGN ENGINEER Indication: Suspected pulmonary embolus. Comparison: CT of [...] by: Richard Lopez II, D.O. Rosy Muñoz [employer] MAKER IMG CT PROCEDURES F inal Result * (ABNORMAL) Blood gas, arterial (05/25/2021 9:[address] DESIGN ENGINEER) pH, Art 7.47(H) 7.35 - 7.45 [facility] [...] % [facility] Blood 05/25/2021 9:[address] DESIGN ENGINEER 05/25/2021 9:[address] DESIGN ENGINEER us Reneesandra Muñoz NP LAB BLOOD ORDERABLE S Final Result Performing Organization Address [facility] Co de Phone Number HENRIK DON [phone] Department [place] [address] * POCT glucose (05/25/2021 9:[address] DESIGN ENGINEER) Glucose, POC 97 70 - 199 mg/dL [facility] Blood 05/25/2021 9:[address] DESIGN ENGINEER 05/25/2021 9:[address] DESIGN ENGINEER Rhina Granados MD LAB POCT ORDERABLES - DEVICE Final Result Performing Organization Address [facility] de Phone Number HENRIK DON [address] [place] [address] * XR Chest 1 Vw Portable (05/25/2021 6:[address] DESIGN ENGINEER) Anatomical Region Laterality Modality Body, Chest N/A Computed Radiogr aphy 05/25/2021 7:[address] DESIGN ENGINEER Impressions 05/25/2021 7:[address] DESIGN ENGINEER Worsening pneumonic changes in the left lung. Electronically signed by: Deacon Cummings M.D. Narrative 05/25/2021 7:[address] DESIGN ENGINEER EXAMINATION: XR CHEST 1 VIEW DATE: 05/25/2021 [...] Resu lt * eGFR (05/25/2021 3:[address] DESIGN ENGINEER) eGFR 112 mL/min/1.7 3 m2 HENRIK DON Comment: Interpretive [...] last reviewed 2020 Blood 05/25/2021 3:[address] DESIGN ENGINEER 05/25/2021 3:[address] DESIGN ENGINEER us Silviano Huddleston [employer] LAB BLOOD ORDERABLES Final Result HENRIK [address] Department [place] [address] * (ABNORMAL) Basic metabolic panel (05/25/2021 3:[address] DESIGN ENGINEER) Sodium 132(L) 135 - 145 mmol/L [facility] Potassium, pl 4.2 3.3 - 4.9 mmol/L [facility] Chloride 96(L) 97 - 110 mmol/L [facility] CO2 23 22 - 32 mmol/L [facility] Anion gap 13 2 - 15 mmol/L [facility] BUN 24 8 - 25 mg/dL [facility] Creatinine 0.58(L) 0.80 - 1.30 mg/dL [facility] Glucose 222(H) 70 - 199 mg/dL [facility] Comment: [...] 2017. Calcium 9.0 8.5 - 10.3 mg/dL [facility] Blood 05/25/2021 3:[address] DESIGN ENGINEER 05/25/2021 3:[address] DESIGN ENGINEER us Silviano Huddleston [employer] LAB BLOOD ORDERABLES Final Result [facility] [address] Department of Laboratories [place], [place] [id number] * (ABNORMAL) CBC without differential (05/25/2021 3:[address] DESIGN ENGINEER) WBC 11.2(H) 3.8 - 9.9 K/cumm [facility] Hgb 10.0(L) 13.0 - 17.5 g/dL [facility] Hct 31.6(L) 38.9 - 50.3 % [facility] Plt 459(H) 150 - 400 K/cumm [facility] MPV 11.7 9.1 - 12.3 fL [facility] RBC 3.46(L) 4.30 - 5.80 M/cumm [facility] MCV 91.3 81.3 - 96.4 fL [facility] MCH 28.9 27.1 - 33.3 pg [facility] MCHC 31.6(L) 32.3 - 35.7 g/dL [facility] RDW CV 13.2 11.1 - 14.9 % [facility] RDW SD 44.2 35.7 - 48.1 fL [facility] NRBC abs 0.00 0.00 - 0.01 K/cumm [facility] Blood 05/25/2021 3:[address] DESIGN ENGINEER 05/25/2021 3:[address] DESIGN ENGINEER Silviano Huddleston [employer] LAB BLOOD ORDERABLES Final Result Performing Organization Address City/[facility] Co de Phone Number HENRIK FLORENCIA [address] [facility] [place] [address] * Magnesium (05/25/2021 3:[address] DESIGN ENGINEER) Magnesium 1.7 1.4 - 2.5 mg/dL [facility] Blood 05/25/2021 3:[address] DESIGN ENGINEER 05/25/2021 3:[address] DESIGN ENGINEER Silviano Huddleston [employer] LAB BLOOD ORDERABLES Final Result Performing Organization Address [facility] Co de Phone Number HENRIK DON [address] [facility] [place] [address] * Phosphorus (05/25/2021 3:[address] DESIGN ENGINEER) Phosphorus, pl 3.0 2.3 - 4.5 mg/dL [facility] Blood 05/25/2021 3:[address] DESIGN ENGINEER 05/25/2021 3:[address] DESIGN ENGINEER Silviano Huddleston [employer] LAB BLOOD ORDERABLES Final Result Performing Organization Address City/[facility] Co de Phone Number HENRIK [address] [facility] [place] [address] * Critical Care (05/24/2021 11:[address] DESIGN ENGINEER) Narrative Frank Dugan MD - 05/24/2021 11:[address] DESIGN ENGINEER Frank Dugan MD ? 05/24/2021 11:44 PM [...] plan with the ICU team and other medical/program evaluation consultant staff, making frequent assessments and decisions [...] Result * POCT glucose (05/24/2021 11:[address] DESIGN ENGINEER) Glucose, POC 135 70 - 199 mg/dL SHARIFANER Blood 05/24/2021 11:[address] DESIGN ENGINEER 05/24/2021 11:[address] DESIGN ENGINEER Rhina Granados MD LAB POCT ORDERABLES - DEVICE Final Result Performing Organization Address [facility] Co de Phone Number HENRIK [address] [facility] [place] [address] * POCT glucose (05/24/2021 7:[address] DESIGN ENGINEER) Glucose, POC 179 70 - 199 mg/dL [facility] Blood 05/24/2021 7:[address] DESIGN ENGINEER 05/24/2021 7:[address] DESIGN ENGINEER Rhian Granados MD LAB POCT ORDERABLES - DEVICE Final Result Performing Organization Address [facility] Phone Number HENRIK [address] [facility] [place] [address] * POCT glucose (05/24/2021 5:[address] DESIGN ENGINEER) Glucose, POC 164 70 - 199 mg/dL [facility] Blood 05/24/2021 5:[address] DESIGN ENGINEER 05/24/2021 5:[address] DESIGN ENGINEER Rhina Granados MD LAB POCT ORDERABLES - DEVICE Final Result Performing Organization Address [facility] Phone Number SHARIFAFORMERLY NAMED [facility] [address] [facility] [place] [address] * Critical Care (05/24/2021 1:[address] DESIGN ENGINEER) Narrative Dominique Wilkinson MD - 05/24/2021 1:[address] DESIGN ENGINEER Silviano Huddleston NP ? 05/24/2021 ??5:31 PM [...] plan with the ICU team and other medical/program evaluation consultant staff, making frequent assessments and decisions [...] Result * POCT glucose (05/24/2021 12:[address] DESIGN ENGINEER) Glucose, POC 157 70 - 199 mg/dL HENRIK Blood 05/24/2021 12:[address] DESIGN ENGINEER 05/24/2021 12:[address] DESIGN ENGINEER us Rhina Granados MD LAB POCT ORDERABLES - DEVICE Final Result [facility] [address] [place] [address] * POCT glucose (05/24/2021 8:[address] DESIGN ENGINEER) Glucose, POC 109 70 - 199 mg/dL [facility] Blood 05/24/2021 8:[address] DESIGN ENGINEER 05/24/2021 8:[address] DESIGN ENGINEER us Rhina Granados MD LAB POCT ORDERABLES - DEVICE Final Result HENRIK [address] [place] [address] * XR Chest 1 Vw Portable (05/24/2021 6:[address] DESIGN ENGINEER) Anatomical Region Laterality Modality Body, Chest N/A Computed Radiogr aphy 05/24/2021 9:[address] DESIGN ENGINEER Impressions 05/24/2021 9:[address] DESIGN ENGINEER Persistent bilateral ill-defined alveolar infiltrate unchanged. Electronically signed by: Joie Bernardo M.D. Narrative 05/24/2021 9:[address] DESIGN ENGINEER Examination: XR CHEST 1 VIEW Date: 05/24/2021 [...] unchanged. Electronically signed by: Joie Bernardo M.D. us Rhina Granados MD IMG XR PROCEDURES Final Resu lt * POCT glucose (05/24/2021 6:[address] DESIGN ENGINEER) Glucose, POC 119 70 - 199 mg/dL [facility] DON Blood 05/24/2021 6:[address] DESIGN ENGINEER 05/24/2021 6:[address] DESIGN ENGINEER us Rhina Granados MD LAB POCT ORDERABLES - DEVICE Final Result HENRIK DON [address] [place] [address] * eGFR (05/24/2021 3:[address] DESIGN ENGINEER) eGFR 110 mL/min/1.7 3 m2 HENRIK DON Comment: Interpretive [...] last reviewed 2020 Blood 05/24/2021 3:[address] DESIGN ENGINEER 05/24/2021 4:[address] DESIGN ENGINEER us Silviano Huddleston [employer] LAB BLOOD ORDERABLES Final Result [facility]ENRIK DON [address] [place] [address] * (ABNORMAL) Basic metabolic panel (05/24/2021 3:[address] DESIGN ENGINEER) Sodium 133(L) 135 - 145 mmol/L [facility] Potassium, pl 4.3 3.3 - 4.9 mmol/L [facility] Chloride 96(L) 97 - 110 mmol/L [facility] CO2 24 22 - 32 mmol/L [facility] Anion gap 13 2 - 15 mmol/L [facility] BUN 23 8 - 25 mg/dL [facility] Creatinine 0.60(L) 0.80 - 1.30 mg/dL [facility] Glucose 142 70 - 199 mg/dL [facility] Comment: Interpretive Data Fasting glucose [...] 2017. Calcium 8.8 8.5 - 10.3 mg/dL [facility] Blood 05/24/2021 3:[address] DESIGN ENGINEER 05/24/2021 4:[address] DESIGN ENGINEER Silviano Huddleston NP LAB BLOOD ORDERABLES Final Result [facility] [address] Department [place] [address] * (ABNORMAL) CBC without differential (05/24/2021 3:[address] DESIGN ENGINEER) Pathologist [facility] WBC 10.7(H) 3.8 - 9.9 K/cumm [facility] Hgb 9.6(L) 13.0 - 17.5 g/dL [facility] Hct 29.5(L) 38.9 - 50.3 % [facility] Plt 457(H) 150 - 400 K/cumm [facility] MPV 11.6 9.1 - 12.3 fL [facility] RBC 3.24(L) 4.30 - 5.80 M/cumm [facility] CH MCV 91.0 81.3 - 96.4 fL [facility] CH MCH 29.6 27.1 - 33.3 pg [facility] CH MCHC 32.5 32.3 - 35.7 g/dL [facility] RDW CV 13.2 11.1 - 14.9 % [facility] CH RDW SD 43.6 35.7 - 48.1 fL [facility] NRBC abs 0.00 0.00 - 0.01 K/cumm [facility] Blood 05/24/2021 3:[address] DESIGN ENGINEER 05/24/2021 4:[address] DESIGN ENGINEER Silviano Huddleston [employer] LAB BLOOD ORDERABLES Final Result Performing Organization Address City/[facility] Co de Phone Number [facility] [address] [facility] [place] [address] * Magnesium (05/24/2021 3:[address] DESIGN ENGINEER) Pathologist [facility] Magnesium 2.1 1.4 - 2.5 mg/dL [facility] Blood 05/24/2021 3:[address] DESIGN ENGINEER 05/24/2021 4:[address] DESIGN ENGINEER Silviano Huddleston [employer] LAB BLOOD ORDERABLES Final Result Performing Organization Address [facility] de Phone Number [facility] [address] [facility] [place] [address] * Phosphorus (05/24/2021 3:[address] DESIGN ENGINEER) Phosphorus, pl 3.3 2.3 - 4.5 mg/dL [facility] Blood 05/24/2021 3:[address] DESIGN ENGINEER 05/24/2021 4:[address] DESIGN ENGINEER Silviano Huddleston [employer] LAB BLOOD ORDERABLES Final Result Performing Organization Address [facility] Co de Phone Number [facility] [address] [facility] [place] [address] * Vitamin B12 (05/24/2021 3:[address] DESIGN ENGINEER) Pathologist [facility] Vitamin B12 879 230 - 1,250 pg/mL [facility] Blood 05/24/2021 3:[address] DESIGN ENGINEER 05/24/2021 4:[address] DESIGN ENGINEER us Stephen Melgar MD LAB BLOOD ORDERABLES Final Resu lt Performing Organization Address [facility] Co de Phone Number [facility] [address] [facility] [place] [address] * (ABNORMAL) Iron profile w/ IBC (05/24/2021 3:[address] DESIGN ENGINEER) [facility] Iron 26(L) 50 - 150 mcg/dl [facility] TIBC 174(L) 250 - 400 mcg/dL [facility] Transferrin saturation 15(L) 20 - 50 % [facility] Blood 05/24/2021 3:[address] DESIGN ENGINEER 05/24/2021 4:[address] DESIGN ENGINEER us Stephen Melgar MD LAB BLOOD ORDERABLES Final Resu Performing Organization Address [facility] de Phone Number [facility] [address] [facility] [place] [address] * Hepatitis panel, acute (05/24/2021 3:[address] DESIGN ENGINEER) [facility] Hep A IgM Nonreactive Nonreactive [facility] Comment: Interpretive Data: If Hep A IgM Ab is reported as Equivocal, a new sample should be drawn in two weeks for testing. Current interpretive data was last revised on 19. Hep B core IgM Nonreactive Nonreactive [facility] Comment: Interpretive Data If HepB Core IgM Ab is reported as Equivocal, a new sample should be drawn in two weeks for testing. Current interpretive data was last revised on 19. Hep C Ab Nonreactive Nonreactive [facility] Comment: Interpretive Data Nonreactive: Antibodies to HCV [...] last revised on 2019. HepBsAg Nonreactive Nonreactive [facility] Blood 05/24/2021 3:[address] DESIGN ENGINEER 05/24/2021 4:[address] DESIGN ENGINEER us Stephen Melgar MD LAB MICROBIOLOGY - GENERAL ORDE RABLES Final Result Performing Organization Address [facility] Co de Phone Number HENRIK [address] [facility] [place] [address] * Folate (05/24/2021 3:[address] DESIGN ENGINEER) Folic acid 10.2 >=5.0 ng/mL SH[facility]IF[facility]ORM[facility]LY NAMED [facility] Comment:Hemolysis present. R esults may be affected. Blood 05/24/2021 3:[address] DESIGN ENGINEER 05/24/2021 4:[address] DESIGN ENGINEER Stephen Melgar MD LAB BLOOD ORDERABLES Final Resu lt Performing Organization Address [facility] de Phone Number SHARIFAMASON [address] [place] [address] * (ABNORMAL) Ferritin (05/24/2021 3:[address] DESIGN ENGINEER) Ferritin 1,861(H) 30 - 400 ng/mL [facility] Blood 05/24/2021 3:[address] DESIGN ENGINEER 05/24/2021 4:[address] DESIGN ENGINEER Stephen Melgar MD LAB BLOOD ORDERABLES Final Resu lt Performing Organization Address [facility] de Phone Number HENRIK [address] [facility] [address] [place], [place] [id number] * (ABNORMAL) Lipid panel (05/24/2021 3:[address] DESIGN ENGINEER) Cholesterol 131 30 - 199 mg/dL [facility] Comment: Interpretive Data Ages < or = [...] on 2018. LDL, calculated 73 <=129 mg/dL [facility] Comment: Interpretive Data Ages < or = [...] revised on 2018. Non-HDL Cholesterol 100 mg/dL [facility] Comment: Interpretive Data Ages < or = [...] last revised on 2018. Chol/HDL ratio 4 [facility] Blood 05/24/2021 3:[address] DESIGN ENGINEER 05/24/2021 4:[address] DESIGN ENGINEER us Stephen Melgar MD LAB BLOOD ORDERABLES Final Resu lt Performing Organization Address [facility] Co de Phone Number HENRIK DON [address] [facility] [place] [address] * (ABNORMAL) Vitamin D 25 hydroxy (05/24/2021 3:[address] DESIGN ENGINEER) Vitamin D 25-OH 10(L) 30 - 80 ng/mL [facility] Blood 05/24/2021 3:[address] DESIGN ENGINEER 05/24/2021 4:[address] DESIGN ENGINEER Stephen Melgar MD LAB BLOOD ORDERABLES Final Resu lt Performing Organization Address [facility] de Phone Number [facility] [address] [facility] [place] [address] * Albumin Creatinine Ratio, Urine (05/24/2021 3:[address] DESIGN ENGINEER) Albumin Ur <12.0 mg/L [facility] Comment: Interpretive Data No reference range established. Current interpretive data was last revised 2018. Creatinine Ur 55.2 mg/dL [facility] Comment: Interpretive Data No reference range established. Current interpretive data was last revised 2018. Albumin Creatinine Ratio, Ur <22 1 - 29 mg/g [facility] Urine 05/24/2021 3:[address] DESIGN ENGINEER 05/24/2021 4:[address] DESIGN ENGINEER us Stephen Melgar MD LAB URINE ORDERABLES Final Resu lt Performing Organization Address [facility] Co de Phone Number [facility] [address] [facility] [place] [address] * POCT glucose (05/23/2021 11:[address] DESIGN ENGINEER) Glucose, POC 179 70 - 199 mg/dL [facility] Blood 05/23/2021 11:[address] DESIGN ENGINEER 05/23/2021 11:[address] DESIGN ENGINEER Rhina Granados MD LAB POCT ORDERABLES - DEVICE Final Result Performing Organization Address [facility] Co de Phone Number HENRIK DON [address] [place] [address] * POCT glucose (05/23/2021 9:[address] DESIGN ENGINEER) Glucose, POC 162 70 - 199 mg/dL H[facility]RIK DON Blood 05/23/2021 9:[address] DESIGN ENGINEER 05/23/2021 9:[address] DESIGN ENGINEER Rhina Granados MD LAB POCT ORDERABLES - DEVICE Final Result Performing Organization Address [facility] de Phone Number HENRIK DON [address] [place] [address] * Critical Care (05/23/2021 8:[address] DESIGN ENGINEER) Narrative Frank Dugan MD - 05/23/2021 8:[address] DESIGN ENGINEER Frank Dugan MD ? 05/24/2021 ??2:00 AM [...] plan with the ICU team and other medical/program evaluation consultant staff, making frequent assessments and decisions [...] * (ABNORMAL) POCT glucose (05/23/2021 6:[address] DESIGN ENGINEER) Glucose, POC 226(H) 70 - 199 mg/dL [facility]K DON Blood 05/23/2021 6:[address] DESIGN ENGINEER 05/23/2021 6:[address] DESIGN ENGINEER Rhina Granados MD LAB POCT ORDERABLES - DEVICE Final Result Performing Organization Address City/State/[facility] Co de Phone Number [facility] [address] [place] [address] * Critical Care (05/23/2021 3:[address] DESIGN ENGINEER) Narrative Dominique Wilkinson MD - 05/23/2021 3:[address] DESIGN ENGINEER Silviano Huddleston NP ? 05/24/2021 ??8:40 AM [...] plan with the ICU team and other medical/program evaluation consultant staff, making frequent assessments and decisions [...] spent time documenting in the medical record Result [facility] Silviano uHddleston NP IN CLINIC/BEDSIDE ORDERABL ES Final Result * (ABNORMAL) POCT glucose (05/23/2021 2:[address] DESIGN ENGINEER) Glucose, POC 276(H) 70 - 199 mg/dL [facility] Blood 05/23/2021 2:[address] DESIGN ENGINEER 05/23/2021 2:[address] DESIGN ENGINEER Rhina Granados MD LAB POCT ORDERABLES - DEVICE Final Result Performing Organization Address City/State/[facility] Co de Phone Number HENRIK [address] [place] [address] * (ABNORMAL) POCT glucose (05/23/2021 1:[address] DESIGN ENGINEER) Glucose, POC 239(H) 70 - 199 mg/dL [facility] Blood 05/23/2021 1:[address] DESIGN ENGINEER 05/23/2021 1:[address] DESIGN ENGINEER Result [facility] Rhina Granados MD LAB POCT ORDERABLES - DEVICE Final Result Performing Organization Address [facility]/ZIP Co de Phone Number HENRIK DON [address] [facility] [place] [address] * POCT glucose (05/23/2021 11:[address] DESIGN ENGINEER) Glucose, POC 129 70 - 199 mg/dL [facility] Blood 05/23/2021 11:[address] DESIGN ENGINEER 05/23/2021 11:[address] DESIGN ENGINEER Rhina Granados MD LAB POCT ORDERABLES - DEVICE Final Result Performing Organization Address [facility] [facility] Co de Phone Number HENRIK DON [address] [facility] [place] [address] * POCT glucose (05/23/2021 10:[address] DESIGN ENGINEER) Glucose, POC 109 70 - 199 mg/dL CER[facility] NAMED [facility] Blood 05/23/2021 10:[address] DESIGN ENGINEER 05/23/2021 10:[address] DESIGN ENGINEER Rhina Granados MD LAB POCT ORDERABLES - DEVICE Final Result Performing Organization Address [facility] Co de Phone Number HENRIK DON [address] [facility] [place] [address] * POCT glucose (05/23/2021 9:[address] DESIGN ENGINEER) Glucose, POC 114 70 - 199 mg/dL [facility] Blood 05/23/2021 9:[address] DESIGN ENGINEER 05/23/2021 9:[address] DESIGN ENGINEER Rhina Granados MD LAB POCT ORDERABLES - DEVICE Final Result Performing Organization Address [facility] Co de Phone Number HENRIK DON [address] [facility] [place] [address] * POCT glucose (05/23/2021 7:[address] DESIGN ENGINEER) Glucose, POC 144 70 - 199 mg/dL [facility] Blood 05/23/2021 7:[address] DESIGN ENGINEER 05/23/2021 7:[address] DESIGN ENGINEER Rhina Granados MD LAB POCT ORDERABLES - DEVICE Final Result Performing Organization Address [facility] de Phone Number HENRIK [address] [facility] [place] [address] * POCT glucose (05/23/2021 6:[address] DESIGN ENGINEER) Glucose, POC 144 70 - 199 mg/dL [facility] Blood 05/23/2021 6:[address] DESIGN ENGINEER 05/23/2021 6:[address] DESIGN ENGINEER Rhina Granados MD LAB POCT ORDERABLES - DEVICE Final Result Performing Organization Address [facility] Phone Number HENRIK [address] [place] [address] * XR Chest 1 Vw Portable (05/23/2021 5:[address] DESIGN ENGINEER) Anatomical Region Laterality Modality Body, Chest N/A Computed Radiogr aphy 05/23/2021 8:[address] DESIGN ENGINEER Impressions 05/23/2021 8:[address] DESIGN ENGINEER Persistent bilateral perihilar mid and lower lung predominant alveolar infiltrate with progression on the right. Electronically signed by: Joie Bernardo M.D. Narrative 05/23/2021 8:[address] DESIGN ENGINEER Examination: XR CHEST 1 VIEW Date: 05/23/2021 3:50 AM History: f/u COVID pneumonia Comparison: 05/22/2021. Findings: There is persistent ill-defined alveolar infiltrate throughout the left mid and lower lung with increasing involvement of the right midlung and perihilar region extending into the upper lobe. Normal heart size and sternotomy is seen. ??Right upper extremity PICC line is at the SVC. Procedure Note oJie Bernardo MD - 05/23/2021 Examination: XR CHEST [...] lt * POCT glucose (05/23/2021 4:[address] DESIGN ENGINEER) Glucose, POC 130 70 - 199 mg/dL [facility] Blood 05/23/2021 4:[address] DESIGN ENGINEER 05/23/2021 4:[address] DESIGN ENGINEER Rhina Granados MD LAB POCT ORDERABLES - DEVICE Final Result Performing Organization Address [facility] Co de Phone Number [facility] [address] [facility] [place] [address] * POCT glucose (05/23/2021 4:[address] DESIGN ENGINEER) Glucose, POC 140 70 - 199 mg/dL [facility] Blood 05/23/2021 4:[address] DESIGN ENGINEER 05/23/2021 4:[address] DESIGN ENGINEER Rhina Granados MD LAB POCT ORDERABLES - DEVICE Final Result Performing Organization Address [facility] Co de Phone Number [facility] [address] [facility] [place] [address] * eGFR (05/23/2021 3:[address] DESIGN ENGINEER) eGFR 121 mL/min/1.7 3 m2 [facility] Comment: Interpretive Data Reference Interval Normal ?>/= [...] last reviewed 2020 Blood 05/23/2021 3:[address] DESIGN ENGINEER 05/23/2021 3:[address] DESIGN ENGINEER us Silviano Huddleston [employer] LAB BLOOD ORDERABLES Final Result Performing Organization Address [facility] Co de Phone Number HENRIK [address] [address] [place] [address] * POCT glucose (05/23/2021 3:[address] DESIGN ENGINEER) Glucose, POC 137 70 - 199 mg/dL HENRIK Blood 05/23/2021 3:[address] DESIGN ENGINEER 05/23/2021 3:[address] DESIGN ENGINEER us Rhina Granados MD LAB POCT ORDERABLES - DEVICE Final Result Performing Organization Address [facility] Co de Phone Number HENRIK [address] [address] [place] [address] * (ABNORMAL) Basic metabolic panel (05/23/2021 3:[address] DESIGN ENGINEER) Sodium 132(L) 135 - 145 mmol/L [facility] Potassium, pl 3.5 3.3 - 4.9 mmol/L [facility] Chloride 95(L) 97 - 110 mmol/L [facility] CO2 23 22 - 32 mmol/L [facility] Anion gap 14 2 - 15 mmol/L [facility] BUN 21 8 - 25 mg/dL [facility] Creatinine 0.48(L) 0.80 - 1.30 mg/dL [facility] Glucose 141 70 - 199 mg/dL [facility] Comment: [...] 2017. Calcium 8.4(L) 8.5 - 10.3 mg/dL [facility] Blood 05/23/2021 3:[address] DESIGN ENGINEER 05/23/2021 3:[address] DESIGN ENGINEER us Silviano Huddleston [employer] LAB BLOOD ORDERABLES Final Result [facility] [address] [address] [place] [address] * (ABNORMAL) CBC without differential (05/23/2021 3:[address] DESIGN ENGINEER) WBC 10.0(H) 3.8 - 9.9 K/cumm [facility] Hgb 9.0(L) 13.0 - 17.5 g/dL [facility] Hct 27.8(L) 38.9 - 50.3 % [facility] CH Plt 408(H) 150 - 400 K/cumm [facility] MPV 11.4 9.1 - 12.3 fL [facility] RBC 3.06(L) 4.30 - 5.80 M/cumm CERFORMERLY NAMED [facility] MCV 90.8 81.3 - 96.4 fL CERFORMERLY NAMED [facility] MCH 29.4 27.1 - 33.3 pg CERFORMERLY NAMED [facility] MCHC 32.4 32.3 - 35.7 g/dL [facility] RDW CV 13.3 11.1 - 14.9 % [facility] RDW SD 44.3 35.7 - 48.1 fL [facility] NRBC abs 0.00 0.00 - 0.01 K/cumm [facility] Blood 05/23/2021 3:[address] DESIGN ENGINEER 05/23/2021 3:[address] DESIGN ENGINEER Silviano Huddleston [employer] LAB BLOOD ORDERABLES Final Result Performing Organization Address City/[facility] Co de Phone Number HENRIK DON [address] [facility] [place] [address] * Magnesium (05/23/2021 3:[address] DESIGN ENGINEER) Magnesium 1.7 1.4 - 2.5 mg/dL [facility] Blood 05/23/2021 3:[address] DESIGN ENGINEER 05/23/2021 3:[address] DESIGN ENGINEER Silviano Huddleston [employer] LAB BLOOD ORDERABLES Final Result Performing Organization Address [facility] Co de Phone Number [facility] [address] [facility] [place] [address] * Phosphorus (05/23/2021 3:[address] DESIGN ENGINEER) Phosphorus, pl 3.0 2.3 - 4.5 mg/dL [facility] Blood 05/23/2021 3:[address] DESIGN ENGINEER 05/23/2021 3:[address] DESIGN ENGINEER Silviano Huddleston [employer] LAB BLOOD ORDERABLES Final Result Performing Organization Address City/[facility]/ZIP Co de Phone Number SHARIFAMASON [address] [facility] [place] [address] * POCT glucose (05/23/2021 2:[address] DESIGN ENGINEER) Glucose, POC 155 70 - 199 mg/dL [facility] Blood 05/23/2021 2:[address] DESIGN ENGINEER 05/23/2021 2:[address] DESIGN ENGINEER Rhina Granados MD LAB POCT ORDERABLES - DEVICE Final Result Performing Organization Address [facility] Co de Phone Number HENRIK [address] [facility] [place] [address] * POCT glucose (05/23/2021 1:[address] DESIGN ENGINEER) Glucose, POC 134 70 - 199 mg/dL [facility] Blood 05/23/2021 1:[address] DESIGN ENGINEER 05/23/2021 1:[address] DESIGN ENGINEER Rhina Granados MD LAB POCT ORDERABLES - DEVICE Final Result Performing Organization Address [facility] Co de Phone Number HENRIK [address] [facility] [place] [address] * POCT glucose (05/22/2021 11:[address] DESIGN ENGINEER) Glucose, POC 105 70 - 199 mg/dL [facility] Blood 05/22/2021 11:[address] DESIGN ENGINEER 05/22/2021 11:[address] DESIGN ENGINEER Rhina Granados MD LAB POCT ORDERABLES - DEVICE Final Result Performing Organization Address [facility] Co de Phone Number SHARIFAFORMERLY NAMED [facility] [address] [facility] [place] [address] * Critical Care (05/22/2021 11:[address] DESIGN ENGINEER) Narrative Frank Dugan MD - 05/22/2021 11:[address] DESIGN ENGINEER Frank Dugan MD ? 05/23/2021 ??5:38 AM [...] plan with the ICU team and other medical/program evaluation consultant staff, making frequent assessments and decisions [...] spent time documenting in the medical record Frank Dugan MD IN CLINIC/BEDSIDE ORDERABLES Final Result * POCT glucose (05/22/2021 11:[address] DESIGN ENGINEER) Glucose, POC 125 70 - 199 mg/dL [facility] Blood 05/22/2021 11:[address] DESIGN ENGINEER 05/22/2021 11:[address] DESIGN ENGINEER Rhina Granados MD LAB POCT ORDERABLES - DEVICE Final Result Performing Organization Address City/[facility]/ZIP Co de Phone Number HENRIK [address] [facility] [place] [address] * POCT glucose (05/22/2021 10:[address] DESIGN ENGINEER) Glucose, POC 124 70 - 199 mg/dL [facility] Blood 05/22/2021 10:[address] DESIGN ENGINEER 05/22/2021 10:[address] DESIGN ENGINEER Rhina Granados MD LAB POCT ORDERABLES - DEVICE Final Result Performing Organization Address [facility] Co de Phone Number HENRIK [address] [facility] [place] [address] * POCT glucose (05/22/2021 9:[address] DESIGN ENGINEER) Glucose, POC 160 70 - 199 mg/dL [facility] Blood 05/22/2021 9:[address] DESIGN ENGINEER 05/22/2021 9:[address] DESIGN ENGINEER Rhina Granados MD LAB POCT ORDERABLES - DEVICE Final Result Performing Organization Address [facility] Co de Phone Number HENRIK [address] [facility] [place] [address] * POCT glucose (05/22/2021 8:[address] DESIGN ENGINEER) Glucose, POC 184 70 - 199 mg/dL [facility] Blood 05/22/2021 8:[address] DESIGN ENGINEER 05/22/2021 8:[address] DESIGN ENGINEER us Rhina Granados MD LAB POCT ORDERABLES - DEVICE Final Result Performing Organization Address City/[facility]/ZIP Co de Phone Number [facility] [address] [facility] [place] [address] * POCT glucose (05/22/2021 5:[address] DESIGN ENGINEER) Glucose, POC 157 70 - 199 mg/dL [facility] Blood 05/22/2021 5:[address] DESIGN ENGINEER 05/22/2021 5:[address] DESIGN ENGINEER Rhina Granados MD LAB POCT ORDERABLES - DEVICE Final Result Performing Organization Address [facility] Co de Phone Number HENRIK DON [address] [facility] [place] [address] * POCT glucose (05/22/2021 4:[address] DESIGN ENGINEER) Glucose, POC 160 70 - 199 mg/dL [facility] Blood 05/22/2021 4:[address] DESIGN ENGINEER 05/22/2021 4:[address] DESIGN ENGINEER Rhina Granados MD LAB POCT ORDERABLES - DEVICE Final Result Performing Organization Address [facility] Co de Phone Number HENRIK DON [phone] [facility] [place] [address] * POCT glucose (05/22/2021 3:[address] DESIGN ENGINEER) Glucose, POC 140 70 - 199 mg/dL [facility] Blood 05/22/2021 3:[address] DESIGN ENGINEER 05/22/2021 3:[address] DESIGN ENGINEER Rhina Granados MD LAB POCT ORDERABLES - DEVICE Final Result Performing Organization Address [facility] de Phone Number HENRIK DON [phone] [facility] [place] [address] * POCT glucose (05/22/2021 2:[address] DESIGN ENGINEER) Glucose, POC 153 70 - 199 mg/dL [facility] Blood 05/22/2021 2:[address] DESIGN ENGINEER 05/22/2021 2:[address] DESIGN ENGINEER Rhina Granados MD LAB POCT ORDERABLES - DEVICE Final Result Performing Organization Address City/[facility]/ZIP Co de Phone Number HENRIK DON [address] [facility] [place] [address] * POCT glucose (05/22/2021 1:[address] DESIGN ENGINEER) Glucose, POC 140 70 - 199 mg/dL [facility] Blood 05/22/2021 1:[address] DESIGN ENGINEER 05/22/2021 1:[address] DESIGN ENGINEER Rhina Granados MD LAB POCT ORDERABLES - DEVICE Final Result Performing Organization Address [facility] de Phone Number HENRIK DON [address] [facility] [place] [address] * POCT glucose (05/22/2021 12:[address] DESIGN ENGINEER) Glucose, POC 156 70 - 199 mg/dL [facility] Blood 05/22/2021 12:[address] DESIGN ENGINEER 05/22/2021 12:[address] DESIGN ENGINEER Rhina Granados MD LAB POCT ORDERABLES - DEVICE Final Result Performing Organization Address [facility] Co de Phone Number HENRIK DON [address] [facility] [place] [address] * POCT glucose (05/22/2021 11:[address] DESIGN ENGINEER) Glucose, POC 194 70 - 199 mg/dL [facility] Blood 05/22/2021 11:[address] DESIGN ENGINEER 05/22/2021 11:[address] DESIGN ENGINEER us Rhina Granados MD LAB POCT ORDERABLES - DEVICE Final Result Performing Organization Address City/[facility] Co de Phone Number HENRIK DON [address] [address] [place] [address] * (ABNORMAL) POCT glucose (05/22/2021 10:[address] DESIGN ENGINEER) Glucose, POC 252(H) 70 - 199 mg/dL [facility] Blood 05/22/2021 10:[address] DESIGN ENGINEER 05/22/2021 10:[address] DESIGN ENGINEER Rhina Granados MD LAB POCT ORDERABLES - DEVICE Final Result Performing Organization Address [facility] Co de Phone Number HENRIK [address] [address] [place] [address] * (ABNORMAL) POCT glucose (05/22/2021 9:[address] DESIGN ENGINEER) Glucose, POC 284(H) 70 - 199 mg/dL [facility] Blood 05/22/2021 9:[address] DESIGN ENGINEER 05/22/2021 9:[address] DESIGN ENGINEER Rhina Granados MD LAB POCT ORDERABLES - DEVICE Final Result Performing Organization Address [facility] de Phone Number [facility] [address] [address] [place] [address] * XR Chest 1 Vw Portable (05/22/2021 8:[address] DESIGN ENGINEER) Anatomical Region Laterality Modality Body, Chest N/A Computed Radiogr aphy 05/22/2021 9:[address] DESIGN ENGINEER Impressions 05/22/2021 9:[address] DESIGN ENGINEER Persistent near confluent alveolar infiltrate throughout the left lower lobe with milder involvement of the left upper lobe and right hemithorax.. Electronically signed by: Joie Bernardo M.D. Narrative 05/22/2021 9:[address] DESIGN ENGINEER Examination: XR CHEST 1 VIEW Date: 05/22/2021 [...] * (ABNORMAL) POCT glucose (05/22/2021 8:[address] DESIGN ENGINEER) [facility] Signature Glucose, POC 225(H) 70 - 199 mg/dL HENRIK DON Blood 05/22/2021 8:[address] DESIGN ENGINEER 05/22/2021 8:[address] DESIGN ENGINEER Rhina Granados MD LAB POCT ORDERABLES - DEVICE Final Result HENRIK [address] [address] [facility] [place] [address] * Critical Care (05/22/2021 7:[address] DESIGN ENGINEER) Narrative Alexandru Porter MD - 05/22/2021 7:[address] DESIGN ENGINEER Silviano Huddleston NP ? 05/22/2021 ??5:28 PM [...] plan with the ICU team and other medical/program evaluation consultant staff, making frequent assessments and decisions [...] in the medical record us Silviano Huddleston [employer] IN CLINIC/BEDSIDE ORDERABL ES Final Result * POCT glucose (05/22/2021 6:[address] DESIGN ENGINEER) [facility] Signature Glucose, POC 163 70 - 199 mg/dL HENRIK DON Blood 05/22/2021 6:[address] DESIGN ENGINEER 05/22/2021 6:[address] DESIGN ENGINEER us Rhina Granados MD LAB POCT ORDERABLES - DEVICE Final Result HENRIK [address] [address] [place] [address] * (ABNORMAL) Pro B-type natriuretic peptide (05/22/2021 3:[address] DESIGN ENGINEER) NT-proBNP 2,233(H) <=300 pg/mL HENRIK DON Comment: [...] Revised Date: 2018. Blood 05/22/2021 3:[address] DESIGN ENGINEER 05/22/2021 8:[address] DESIGN ENGINEER us Nalini Clayton MD LAB BLOOD ORDERABLES Final Resul t Performing Organization Address City/[facility]/ZIP Co de Phone Number HENRIK DON [address] [address] [place] [address] * eGFR (05/22/2021 3:[address] DESIGN ENGINEER) Pathologist [facility] eGFR 109 mL/min/1.7 3 m2 HENRIK Comment: Interpretive Data [...] last reviewed 2020 Blood 05/22/2021 3:[address] DESIGN ENGINEER 05/22/2021 4:[address] DESIGN ENGINEER us Silviano Huddleston NP LAB BLOOD ORDERABLES Final Result Performing Organization Address [facility] de Phone Number HENRIK DON [address] [address] [place] [address] * (ABNORMAL) Basic metabolic panel (05/22/2021 3:[address] DESIGN ENGINEER) Sodium 134(L) 135 - 145 mmol/L [facility] Potassium, pl 3.5 3.3 - 4.9 mmol/L [facility] Chloride 98 97 - 110 mmol/L [facility] CO2 22 22 - 32 mmol/L [facility] Anion gap 14 2 - 15 mmol/L [facility] BUN 24 8 - 25 mg/dL [facility] Creatinine 0.62(L) 0.80 - 1.30 mg/dL [facility] Glucose 227(H) 70 - 199 mg/dL [facility] Comment: [...] 2017. Calcium 8.6 8.5 - 10.3 mg/dL [facility] Blood 05/22/2021 3:[address] DESIGN ENGINEER 05/22/2021 4:[address] DESIGN ENGINEER us Silviano Huddleston [employer] LAB BLOOD ORDERABLES Final Result [facility] [address] [address] Department of Laboratories [place], [place] [id number] * (ABNORMAL) CBC without differential (05/22/2021 3:[address] DESIGN ENGINEER) WBC 7.3 3.8 - 9.9 K/cumm [facility] Hgb 9.2(L) 13.0 - 17.5 g/dL [facility] Hct 28.0(L) 38.9 - 50.3 % [facility] CH Plt 381 150 - 400 K/cumm [facility] MPV 11.8 9.1 - 12.3 fL [facility] RBC 3.05(L) 4.30 - 5.80 M/cumm [facility] CH MCV 91.8 81.3 - 96.4 fL [facility] MCH 30.2 27.1 - 33.3 pg [facility] CH MCHC 32.9 32.3 - 35.7 g/dL [facility] CH RDW CV 13.3 11.1 - 14.9 % [facility] CH RDW SD 44.4 35.7 - 48.1 fL [facility] CH NRBC abs 0.00 0.00 - 0.01 K/cumm [facility] Blood 05/22/2021 3:[address] DESIGN ENGINEER 05/22/2021 4:[address] DESIGN ENGINEER Silviano Huddleston [employer] LAB BLOOD ORDERABLES Final Result Performing Organization Address [facility] Co de Phone Number [facility] [address] [address] [facility] [place] [place], [place] [id number] * Magnesium (05/22/2021 3:[address] DESIGN ENGINEER) Magnesium 2.1 1.4 - 2.5 mg/dL [facility] Blood 05/22/2021 3:[address] DESIGN ENGINEER 05/22/2021 4:[address] DESIGN ENGINEER Silviano Huddleston [employer] LAB BLOOD ORDERABLES Final Result Performing Organization Address [facility] de Phone Number [facility] [address] [address] [facility] [place] [place], [place] [id number] * (ABNORMAL) Phosphorus (05/22/2021 3:[address] DESIGN ENGINEER) Phosphorus, pl 2.2(L) 2.3 - 4.5 mg/dL [facility] Blood 05/22/2021 3:[address] DESIGN ENGINEER 05/22/2021 4:[address] DESIGN ENGINEER Silviano Huddleston [employer] LAB BLOOD ORDERABLES Final Result Performing Organization Address [facility] Co de Phone Number [facility] [address] [address] [facility] [address] [place], [place] [id number] * (ABNORMAL) POCT glucose (05/22/2021 2:[address] DESIGN ENGINEER) Glucose, POC 266(H) 70 - 199 mg/dL [facility] Blood 05/22/2021 2:[address] DESIGN ENGINEER 05/22/2021 2:[address] DESIGN ENGINEER Rhina Granados MD LAB POCT ORDERABLES - DEVICE Final Result Performing Organization Address [facility] Co de Phone Number [facility] [address] [place] [address] * (ABNORMAL) POCT glucose (05/21/2021 11:[address] DESIGN ENGINEER) Glucose, POC 268(H) 70 - 199 mg/dL [facility] Blood 05/21/2021 11:[address] DESIGN ENGINEER 05/21/2021 11:[address] DESIGN ENGINEER Rhina Granados MD LAB POCT ORDERABLES - DEVICE Final Result Performing Organization Address [facility] de Phone Number [facility] [address] [facility] [place] [address] * Critical Care (05/21/2021 11:[address] DESIGN ENGINEER) Narrative Jose Conti MD - 05/21/2021 11:[address] DESIGN ENGINEER Jose Conti MD ? 05/21/2021 11:33 PM [...] plan with the ICU team and other medical/program evaluation consultant staff, making frequent assessments and decisions [...] * (ABNORMAL) POCT glucose (05/21/2021 9:[address] DESIGN ENGINEER) Pathologist [facility] Glucose, POC 224(H) 70 - 199 mg/dL [facility] Blood 05/21/2021 9:[address] DESIGN ENGINEER 05/21/2021 9:[address] DESIGN ENGINEER us Rhina Granados MD LAB POCT ORDERABLES - DEVICE Final Result [facility] [address] [address] [place] [address] * eGFR (05/21/2021 9:18 PM ROAD DESIGN ENGINEER) Pathologist [facility] eGFR 102 mL/min/1.7 3 m2 [facility] Comment: Interpretive Data Reference Interval Normal ?>/= [...] last reviewed 2020 Blood 05/21/2021 9:[address] DESIGN ENGINEER 05/21/2021 11:[address] DESIGN ENGINEER us Jose Conti MD LAB BLOOD ORDERABLES Final Resul t [facility] [address] Department [place] [address] * (ABNORMAL) Basic metabolic panel (05/21/2021 9:[address] DESIGN ENGINEER) Sodium 135 135 - 145 mmol/L [facility] Potassium, pl 4.3 3.3 - 4.9 mmol/L [facility] Chloride 97 97 - 110 mmol/L [facility] CO2 22 22 - 32 mmol/L [facility] Anion gap 16(H) 2 - 15 mmol/L [facility] BUN 31(H) 8 - 25 mg/dL [facility] Creatinine 0.72(L) 0.80 - 1.30 mg/dL [facility] Glucose 257(H) 70 - 199 mg/dL [facility] Comment: Interpretive [...] 2017. Calcium 8.6 8.5 - 10.3 mg/dL [facility] Blood 05/21/2021 9:[address] DESIGN ENGINEER 05/21/2021 11:[address] DESIGN ENGINEER Jose Conti MD LAB BLOOD ORDERABLES Final Resul t Performing Organization Address City/[facility] Co de Phone Number [facility] [address] [place] [address] * Phosphorus (05/21/2021 9:[address] DESIGN ENGINEER) Phosphorus, pl 2.7 2.3 - 4.5 mg/dL [facility] Blood 05/21/2021 9:[address] DESIGN ENGINEER 05/21/2021 9:[address] DESIGN ENGINEER Jose Conti MD LAB BLOOD ORDERABLES Final Resul t Performing Organization Address [facility] de Phone Number [facility] [address] [place] [address] * Magnesium (05/21/2021 9:[address] DESIGN ENGINEER) Magnesium 2.3 1.4 - 2.5 mg/dL [facility] Blood 05/21/2021 9:[address] DESIGN ENGINEER 05/21/2021 9:[address] DESIGN ENGINEER Jose Conti MD LAB BLOOD ORDERABLES Final Resul t Performing Organization Address [facility] de Phone Number [facility] [address] [facility] [place] [address] * Calcium, ionized (05/21/2021 9:[address] DESIGN ENGINEER) Ca, ionized, bld 4.70 4.60 - 5.20 mg/dL [facility] Ca, ionized, bld, calc 4.75 4.60 - 5.20 mg/dL [facility] Blood 05/21/2021 9:[address] DESIGN ENGINEER 05/21/2021 9:[address] DESIGN ENGINEER Jose Conti MD LAB BLOOD ORDERABLES Final Resul t Performing Organization Address [facility] de Phone Number [facility] [address] [facility] [place] [address] * (ABNORMAL) POCT glucose (05/21/2021 8:[address] DESIGN ENGINEER) Glucose, POC 312(H) 70 - 199 mg/dL [facility] Blood 05/21/2021 8:[address] DESIGN ENGINEER 05/21/2021 8:[address] DESIGN ENGINEER Rhina Granados MD LAB POCT ORDERABLES - DEVICE Final Result Performing Organization Address [facility] de Phone Number [facility] [address] [facility] [place] [address] * (ABNORMAL) POCT glucose (05/21/2021 3:[address] DESIGN ENGINEER) Glucose, POC 318(H) 70 - 199 mg/dL [facility] Blood 05/21/2021 3:[address] DESIGN ENGINEER 05/21/2021 3:[address] DESIGN ENGINEER Rhina Granados MD LAB POCT ORDERABLES - DEVICE Final Result Performing Organization Address [facility] Co de Phone Number [facility] [address] [facility] [place] [address] * (ABNORMAL) POCT glucose (05/21/2021 11:[address] DESIGN ENGINEER) Glucose, POC 218(H) 70 - 199 mg/dL [facility] Blood 05/21/2021 11:[address] DESIGN ENGINEER 05/21/2021 11:[address] DESIGN ENGINEER us Rhina Granados MD LAB POCT ORDERABLES - DEVICE Final Result Performing Organization Address [facility] Co de Phone Number [facility] [address] [facility] [place] [address] * POCT glucose (05/21/2021 8:[address] DESIGN ENGINEER) Glucose, POC 177 70 - 199 mg/dL [facility] Blood 05/21/2021 8:[address] DESIGN ENGINEER 05/21/2021 8:[address] DESIGN ENGINEER Rhina Granados MD LAB POCT ORDERABLES - DEVICE Final Result Performing Organization Address [facility] de Phone Number [facility] [address] [place] [address] * Critical Care (05/21/2021 8:[address] DESIGN ENGINEER) Narrative Alexandru Porter MD - 05/21/2021 8:[address] DESIGN ENGINEER Silviano Huddleston NP ? 05/21/2021 ??8:24 PM [...] plan with the ICU team and other medical/program evaluation consultant staff, making frequent assessments and decisions [...] inability to participate in decision making us Silviano Huddleston [employer] MAK[employer] IN CLINIC/BEDSIDE ORDERABL ES Final Result * eGFR (05/21/2021 4:[address] DESIGN ENGINEER) [facility] eGFR 99 mL/min/1.7 3 m2 [facility] [...] last reviewed 2020 Blood 05/21/2021 4:[address] DESIGN ENGINEER 05/21/2021 4:[address] DESIGN ENGINEER Silviano Huddleston [employer] LAB BLOOD ORDERABLES Final Result [facility] [address] Department [place] [address] * (ABNORMAL) Basic metabolic panel (05/21/2021 4:[address] DESIGN ENGINEER) Sodium 135 135 - 145 mmol/L [facility] Potassium, pl 3.2(L) 3.3 - 4.9 mmol/L [facility] Chloride 97 97 - 110 mmol/L [facility] CO2 24 22 - 32 mmol/L [facility] Anion gap 14 2 - 15 mmol/L [facility] BUN 34(H) 8 - 25 mg/dL [facility] Creatinine 0.78(L) 0.80 - 1.30 mg/dL [facility] Glucose 175 70 - 199 mg/dL [facility] Comment: [...] 8.6 8.5 - 10.3 mg/dL [facility] Blood 05/21/2021 4:[address] DESIGN ENGINEER 05/21/2021 4:[address] DESIGN ENGINEER Silviano Huddleston [employer] LAB BLOOD ORDERABLES Final Result Performing Organization Address City/[facility]/ZIP Co de Phone Number [facility] [address] [place] [address] * Magnesium (05/21/2021 4:[address] DESIGN ENGINEER) Magnesium 2.3 1.4 - 2.5 mg/dL [facility] Blood 05/21/2021 4:[address] DESIGN ENGINEER 05/21/2021 4:[address] DESIGN ENGINEER Silviano Huddleston [employer] LAB BLOOD ORDERABLES Final Result Performing Organization Address City/[facility]/ZIP Co de Phone Number [facility] DNO [address] [facility] [place] [address] * (ABNORMAL) Phosphorus (05/21/2021 4:[address] DESIGN ENGINEER) Pathologist [facility] Phosphorus, pl 2.1(L) 2.3 - 4.5 mg/dL [facility] Blood 05/21/2021 4:[address] DESIGN ENGINEER 05/21/2021 4:[address] DESIGN ENGINEER Silviano Huddleston [employer] LAB BLOOD ORDERABLES Final Result Performing Organization Address [facility] de Phone Number [facility] [address] [facility] [place] [address] * (ABNORMAL) CBC without differential (05/21/2021 3:[address] DESIGN ENGINEER) Pathologist [facility] WBC 8.3 3.8 - 9.9 K/cumm [facility] Hgb 9.5(L) 13.0 - 17.5 g/dL [facility] Hct 28.7(L) 38.9 - 50.3 % [facility] Plt 355 150 - 400 K/cumm [facility] MPV 11.6 9.1 - 12.3 fL [facility] RBC 3.20(L) 4.30 - 5.80 M/cumm [facility] MCV 89.7 81.3 - 96.4 fL [facility] MCH 29.7 27.1 - 33.3 pg [facility] MCHC 33.1 32.3 - 35.7 g/dL [facility] RDW CV 13.2 11.1 - 14.9 % [facility] RDW SD 43.7 35.7 - 48.1 fL [facility] NRBC abs 0.00 0.00 - 0.01 K/cumm [facility] Blood 05/21/2021 3:[address] DESIGN ENGINEER 05/21/2021 4:[address] DESIGN ENGINEER us Silviano Huddleston [employer] LAB BLOOD ORDERABLES Final Result Performing Organization Address [facility] Co de Phone Number [facility] [address] [place] [address] * POCT glucose (05/21/2021 2:[address] DESIGN ENGINEER) Glucose, POC 169 70 - 199 mg/dL [facility] Blood 05/21/2021 2:[address] DESIGN ENGINEER 05/21/2021 2:[address] DESIGN ENGINEER Rhina Granados MD LAB POCT ORDERABLES - DEVICE Final Result Performing Organization Address [facility] de Phone Number [facility] [address] Department [place] [address] * Critical Care (05/20/2021 11:[address] DESIGN ENGINEER) Narrative Jose Conti MD - 05/20/2021 11:[address] DESIGN ENGINEER Jose Conti MD ? 05/21/2021 11:34 PM [...] plan with the ICU team and other medical/program evaluation consultant staff, making frequent assessments and decisions [...] spent time documenting in the medical record Jose Conti MD IN CLINIC/BEDSIDE ORDERABLES Anthony merline Result - Final * (ABNORMAL) POCT glucose (05/20/2021 7:[address] DESIGN ENGINEER) Glucose, POC 207(H) 70 - 199 mg/dL [facility] Blood 05/20/2021 7:[address] DESIGN ENGINEER 05/20/2021 7:[address] DESIGN ENGINEER Rhina Granados MD LAB POCT ORDERABLES - DEVICE Final Result Performing Organization Address [facility]/ZIP Co de Phone Number SHARIFAMASON [address] [employer] [place] [address] * (ABNORMAL) POCT glucose (05/20/2021 5:[address] DESIGN ENGINEER) Glucose, POC 349(H) 70 - 199 mg/dL [facility] Blood 05/20/2021 5:[address] DESIGN ENGINEER 05/20/2021 5:[address] DESIGN ENGINEER Rhina Granados MD LAB POCT ORDERABLES - DEVICE Final Result Performing Organization Address City/[facility] Co de Phone Number [facility]IF[facility]ER[facility] NAMED [facility] [address] [facility] [place] [address] * (ABNORMAL) POCT glucose (05/20/2021 12:[address] DESIGN ENGINEER) Glucose, POC 343(H) 70 - 199 mg/dL [facility] Blood 05/20/2021 12:[address] DESIGN ENGINEER 05/20/2021 12:[address] DESIGN ENGINEER Rhina Granados MD LAB POCT ORDERABLES - DEVICE Final Result Performing Organization Address [facility] Co de Phone Number [facility] [address] [facility] [place] [address] * (ABNORMAL) POCT glucose (05/20/2021 9:[address] DESIGN ENGINEER) [facility] Signature Glucose, POC 238(H) 70 - 199 mg/dL [facility] Blood 05/20/2021 9:[address] DESIGN ENGINEER 05/20/2021 9:[address] DESIGN ENGINEER Rhina Granados MD LAB POCT ORDERABLES - DEVICE Final Result Performing Organization Address [facility] de Phone Number [facility] [address] [facility] [place] [address] * Critical Care (05/20/2021 8:[address] DESIGN ENGINEER) Narrative Alxeandru Porter MD - 05/20/2021 8:[address] DESIGN ENGINEER Silviano Huddleston NP ? 05/20/2021 ??5:41 PM [...] plan with the ICU team and other medical/program evaluation consultant staff, making frequent assessments and decisions [...] in the medical record us Silviano Huddleston [employer] MAK[employer] IN CLINIC/BEDSIDE ORDERABL ES Final Result * (ABNORMAL) CRP (acute phase) (05/20/2021 3:[address] DESIGN ENGINEER) CRP 68.7(H) <=10.0 mg/L [facility] Blood 05/20/2021 3:[address] DESIGN ENGINEER 05/20/2021 11:[address] DESIGN ENGINEER Alexandru Porter MD LAB BLOOD ORDERABLES Final Result Performing Organization Address [facility]/State/[facility] Co de Phone Number [facility] [address] Department [place] [address] * eGFR (05/20/2021 3:[address] DESIGN ENGINEER) eGFR 70 mL/min/1.7 3 m2 [facility] Comment: Interpretive Data Reference Interval Normal ?>/= [...] last reviewed 2020 Blood 05/20/2021 3:[address] DESIGN ENGINEER 05/20/2021 4:[address] DESIGN ENGINEER us Rhina Granados MD LAB BLOOD ORDERABLES Final R esult [facility] [address] [place] [address] * (ABNORMAL) Basic metabolic panel (05/20/2021 3:[address] DESIGN ENGINEER) Sodium 132(L) 135 - 145 mmol/L [facility] Potassium, pl 4.0 3.3 - 4.9 mmol/L [facility] Chloride 94(L) 97 - 110 mmol/L [facility] CO2 21(L) 22 - 32 mmol/L [facility] Anion gap 17(H) 2 - 15 mmol/L [facility] BUN 45(H) 8 - 25 mg/dL [facility] Creatinine 1.14 0.80 - 1.30 mg/dL [facility] Glucose 186 70 - 199 mg/dL [facility] Comment: Interpretive Data Fasting glucose [...] 10.3 mg/dL [facility] Blood 05/20/2021 3:[address] DESIGN ENGINEER 05/20/2021 3:[address] DESIGN ENGINEER us Rhina Granados MD LAB BLOOD ORDERABLES Final R esult Performing Organization Address City/[facility]/ZIP Co de Phone Number [facility] [address] [place] [address] * (ABNORMAL) CBC without differential (05/20/2021 3:[address] DESIGN ENGINEER) Pathologist [facility] WBC 9.3 3.8 - 9.9 K/cumm [facility] Hgb 10.6(L) 13.0 - 17.5 g/dL [facility] Hct 32.5(L) 38.9 - 50.3 % [facility] Plt 381 150 - 400 K/cumm [facility] MPV 11.7 9.1 - 12.3 fL [facility] RBC 3.59(L) 4.30 - 5.80 M/cumm [facility] MCV 90.5 81.3 - 96.4 fL [facility] MCH 29.5 27.1 - 33.3 pg [facility] MCHC 32.6 32.3 - 35.7 g/dL [facility] RDW CV 13.2 11.1 - 14.9 % [facility] RDW SD 43.9 35.7 - 48.1 fL [facility] N[facility] NRBC abs 0.00 0.00 - 0.01 K/cumm [facility] Blood 05/20/2021 3:[address] DESIGN ENGINEER 05/20/2021 3:[address] DESIGN ENGINEER us Silviano Huddleston [employer] LAB BLOOD ORDERABLES Final Result Performing Organization Address City/[facility] Co de Phone Number [facility] DON [address] [place] [address] * Magnesium (05/20/2021 3:[address] DESIGN ENGINEER) Magnesium 2.4 1.4 - 2.5 mg/dL [facility] Blood 05/20/2021 3:[address] DESIGN ENGINEER 05/20/2021 3:[address] DESIGN ENGINEER Silviano Huddleston [employer] LAB BLOOD ORDERABLES Final Result Performing Organization Address [facility] de Phone Number [facility] [address] [facility] [place] [address] * Phosphorus (05/20/2021 3:[address] DESIGN ENGINEER) [facility] Phosphorus, pl 3.2 2.3 - 4.5 mg/dL [facility] Blood 05/20/2021 3:[address] DESIGN ENGINEER 05/20/2021 3:[address] DESIGN ENGINEER Silviano Huddleston [employer] LAB BLOOD ORDERABLES Final Result Performing Organization Address [facility] de Phone Number [facility] [address] [place] [address] * POCT glucose (05/20/2021 1:[address] DESIGN ENGINEER) [facility] Glucose, POC 155 70 - 199 mg/dL [facility] Blood 05/20/2021 1:[address] DESIGN ENGINEER 05/20/2021 1:[address] DESIGN ENGINEER Rhina Granados MD LAB POCT ORDERABLES - DEVICE Final Result Performing Organization Address [facility] de Phone Number [facility] [address] [facility] [place] [address] * eGFR (05/20/2021 12:[address] DESIGN ENGINEER) [facility] eGFR 77 mL/min/1.7 3 m2 [facility] Comment: Interpretive Data Reference Interval Normal ?>/= [...] reviewed 2020 Blood 05/20/2021 12:[address] DESIGN ENGINEER 05/20/2021 12:[address] DESIGN ENGINEER us Rhina Granados MD LAB BLOOD ORDERABLES Final R esult [facility] [address] [place] [address] * (ABNORMAL) Basic metabolic panel (05/20/2021 12:[address] DESIGN ENGINEER) Sodium 131(L) 135 - 145 mmol/L [facility] Potassium, pl 3.7 3.3 - 4.9 mmol/L [facility] Chloride 95(L) 97 - 110 mmol/L [facility] CO2 21(L) 22 - 32 mmol/L [facility] Anion gap 15 2 - 15 mmol/L [facility] BUN 47(H) 8 - 25 mg/dL [facility] Creatinine 1.05 0.80 - 1.30 mg/dL [facility] Glucose 173 70 - 199 mg/dL [facility] Comment: [...] 2017. Calcium 8.4(L) 8.5 - 10.3 mg/dL [facility] Blood 05/20/2021 12:[address] DESIGN ENGINEER 05/20/2021 12:[address] DESIGN ENGINEER us Rhina Granados MD LAB BLOOD ORDERABLES Final R esult [facility] [address] [place] [address] * (ABNORMAL) Influenza A/B, RSV, and COVID-19 PCR Nasopharyngeal (05/19/2021 8:[address] DESIGN ENGINEER) COVID-19 RNA Positive(A) Negative [facility] Comment: Interpretive data: Synonyms for this test include: PCR and NAAT . ??This test is performed using the Needle HR Xpert Xpress assay. This is a real-time [...] 24, 2020. Influenza A RNA Negative Negative [facility] Influenza B RNA Negative Negative [facility] RSV RNA Negative Negative [facility] Comment: Interpretive data: This test is performed using the Needle HR Xpert Assay. This is a multiplex, real- time reverse transcriptase PCR assay that detects influenza A, influenza B, and respiratory syncytial virus RNA. This assay has been cleared by the [place] Food and Drug Administration, and its performance characteristics have been verified by the performing laboratory. ?? Interpretive data last revised 2020. First COVID-19 test? No [facility] Employeed in healthcare? No [facility] Group care resident? No [facility] Hospitalized? Yes [facility] Is patient in ICU? Yes [facility] Symptomatic as defined by CDC? Yes [facility] Nasopharyngeal 05/19/2021 8: [address] DESIGN ENGINEER 05/19/2021 9:[address] DESIGN ENGINEER Narrative [facility] - 05/19/2021 10:[address] DESIGN ENGINEER Date of Symptom Onset->05/16/21 Reason for testing?->Symptomatic (not immunocompromised) Known exposure to confirmed or suspected COVID-19 case?->No us Elena Kelly NP LAB MICROBIOLOGY - GENERAL ORDERABLES Final Result Performing Organization Address City/[facility]/ZIP Co de Phone Number [facility] [address] [place] [address] * POCT glucose (05/19/2021 8:[address] DESIGN ENGINEER) Glucose, POC 165 70 - 199 mg/dL [facility] Blood 05/19/2021 8:[address] DESIGN ENGINEER 05/19/2021 8:[address] DESIGN ENGINEER us Rhina Granados MD LAB POCT ORDERABLES - DEVICE Final Result Performing Organization Address City/[facility]/ZIP Co de Phone Number [facility] DON [address] Department of Laboratories [place], [place] [id number] * Critical Care (05/19/2021 7:[address] DESIGN ENGINEER) Narrative Jose Conti MD - 05/19/2021 7:[address] DESIGN ENGINEER Elena Kelly NP ? 05/20/2021 ??6:22 AM [...] plan with the ICU team and other medical/program evaluation consultant staff, making frequent assessments and decisions [...] Final Result * eGFR (05/19/2021 4:[address] DESIGN ENGINEER) [facility] eGFR 53 mL/min/1.7 3 m2 [facility] [...] last reviewed 2020 Blood 05/19/2021 4:[address] DESIGN ENGINEER 05/19/2021 4:[address] DESIGN ENGINEER us Rhina Granados MD LAB BLOOD ORDERABLES Final R esult [facility] [address] [place] [address] * (ABNORMAL) Basic metabolic panel (05/19/2021 4:[address] DESIGN ENGINEER) Sodium 130(L) 135 - 145 mmol/L [facility] Potassium, pl 4.0 3.3 - 4.9 mmol/L [facility] Chloride 91(L) 97 - 110 mmol/L [facility] CO2 21(L) 22 - 32 mmol/L [facility] Anion gap 18(H) 2 - 15 mmol/L [facility] BUN 51(H) 8 - 25 mg/dL [facility] Creatinine 1.44(H) 0.80 - 1.30 mg/dL [facility] Glucose 213(H) 70 - 199 mg/dL [facility] Comment: Interpretive [...] 2017. Calcium 8.8 8.5 - 10.3 mg/dL [facility] Blood 05/19/2021 4:[address] DESIGN ENGINEER 05/19/2021 4:[address] DESIGN ENGINEER Rhina Granados MD LAB BLOOD ORDERABLES Final R esult Performing Organization Address City/[facility] Co de Phone Number [facility] DON [address] [place] [address] * (ABNORMAL) POCT glucose (05/19/2021 4:[address] DESIGN ENGINEER) Glucose, POC 203(H) 70 - 199 mg/dL [facility] Blood 05/19/2021 4:[address] DESIGN ENGINEER 05/19/2021 4:[address] DESIGN ENGINEER Rhina Granados MD LAB POCT ORDERABLES - DEVICE Final Result Performing Organization Address [facility] Co de Phone Number [facility] [address] [place] [address] * FL Sniff Test (05/19/2021 4:[address] DESIGN ENGINEER) Anatomical Region Laterality Modality Head and Neck N/A Computed Radiogr aphy 05/20/2021 4:[address] DESIGN ENGINEER Impressions 05/20/2021 4:[address] DESIGN ENGINEER FINDINGS/IMPRESSION: Fluoroscopy was used while patient attempted deep inspiration and expiration with a single image obtained at each extreme and there was no significant diaphragm motion. Electronically signed by: Deandre Lomeli M.D. Narrative 05/20/2021 4:[address] DESIGN ENGINEER EXAMINATION: FL SNIFF TEST HISTORY: Evaluate [...] MOODY IMG FLUOROSCOPY RADHA AGARWAL Final Result * (ABNORMAL) POCT glucose (05/19/2021 1:[address] DESIGN ENGINEER) Glucose, POC 239(H) 70 - 199 mg/dL [facility] Blood 05/19/2021 1:[address] DESIGN ENGINEER 05/19/2021 1:[address] DESIGN ENGINEER Rhina Granados MD LAB POCT ORDERABLES - DEVICE Final Result [facility] [address] [place] [address] * CT Chest WO Contrast (05/19/2021 11:[address] DESIGN ENGINEER) Anatomical Region Laterality Modality Body N/A Computed Tomogra phy 05/19/2021 4:[address] DESIGN ENGINEER Impressions 05/19/2021 4:[address] DESIGN ENGINEER 1. ??STATUS POST MEDIAN STERNOTOMY. 2. ??RIGHT-SIDED PICC CATHETER IN PLACE. 3. ??CORONARY ARTERY DISEASE. 4. ??MODERATE EMPHYSEMATOUS CHANGES IN THE LUNGS. 5. ??PATCHY ALVEOLAR INFILTRATE IN BOTH LUNGS. ??THIS CAN BE SEEN WITH A VIRAL-TYPE PNEUMONITIS. Electronically signed by: Humphrey Mojica M.D. Narrative 05/19/2021 4:[address] DESIGN ENGINEER EXAMINATION: CT CHEST WO CONTRAST DATE: 05/19/2021 [...] lt * Critical Care (05/19/2021 10:34 AM ROAD DESIGN ENGINEER) Narrative Alexandru Porter MD - 05/19/2021 10:[address] DESIGN ENGINEER Caleb Toth PA ? 05/19/2021 ??4:21 PM [...] plan with the patient's team and other medical/program evaluation consultant staff. This time was in addition to and separate from care provided by other practitioners on this day of service. ?? us Caleb MOODY IN CLINIC/BEDSIDE ORD ERABLES Final Result * POCT glucose (05/19/2021 7:[address] DESIGN ENGINEER) Glucose, POC 174 70 - 199 mg/dL [facility] Blood 05/19/2021 7:[address] DESIGN ENGINEER 05/19/2021 7:[address] DESIGN ENGINEER Rhina Granados MD LAB POCT ORDERABLES - DEVICE Final Result [facility] [address] Department [place] [address] * XR Chest 1 View (05/19/2021 6:[address] DESIGN ENGINEER) Anatomical Region Laterality Modality Body, Chest N/A Computed Radiogr aphy 05/19/2021 1:[address] DESIGN ENGINEER Impressions 05/19/2021 1:[address] DESIGN ENGINEER Persistent ill-defined patchy left perihilar upper and lower lobe alveolar infiltrate and mild on the right. Electronically signed by: Joie Bernardo M.D. Narrative 05/19/2021 1:[address] DESIGN ENGINEER Examination: XR CHEST 1 VIEW Date: 05/19/2021 [...] right. Electronically signed by: Joie Bernardo M.D. us Varsha Crowder [employer] IMG XR PROCEDURES Final Re sult * (ABNORMAL) CBC without differential (05/19/2021 4:[address] DESIGN ENGINEER) WBC 8.0 3.8 - 9.9 K/cumm [facility] Hgb 9.8(L) 13.0 - 17.5 g/dL [facility] Hct 29.1(L) 38.9 - 50.3 % [facility] Plt 308 150 - 400 K/cumm [facility] MPV 11.7 9.1 - 12.3 fL [facility] RBC 3.25(L) 4.30 - 5.80 M/cumm [facility] MCV 89.5 81.3 - 96.4 fL [facility] MCH 30.2 27.1 - 33.3 pg [facility] MCHC 33.7 32.3 - 35.7 g/dL [facility] RDW CV 13.4 11.1 - 14.9 % [facility] RDW SD 44.2 35.7 - 48.1 fL [facility] NRBC abs 0.00 0.00 - 0.01 K/cumm [facility] Blood 05/19/2021 4:[address] DESIGN ENGINEER 05/19/2021 4:[address] DESIGN ENGINEER us Silviano Huddleston [employer] LAB BLOOD ORDERABLES Final Result [facility] [address] Department [place] [address] * eGFR (05/19/2021 4:[address] DESIGN ENGINEER) eGFR 65 mL/min/1.7 3 m2 [facility] Comment: Interpretive [...] last reviewed 2020 Blood 05/19/2021 4:[address] DESIGN ENGINEER 05/19/2021 5:[address] DESIGN ENGINEER us Rhina Granados MD LAB BLOOD ORDERABLES Final R esult [facility] NAMED [facility] [address] Department [place] [address] * (ABNORMAL) Basic metabolic panel (05/19/2021 4:[address] DESIGN ENGINEER) Sodium 132(L) 135 - 145 mmol/L [facility] Potassium, pl 3.7 3.3 - 4.9 mmol/L [facility] Chloride 95(L) 97 - 110 mmol/L [facility] CO2 21(L) 22 - 32 mmol/L [facility] Anion gap 16(H) 2 - 15 mmol/L [facility] BUN 47(H) 8 - 25 mg/dL CERFORMERLY NAMED [facility] Creatinine 1.21 0.80 - 1.30 mg/dL [facility] Glucose 156 70 - 199 mg/dL [facility] Comment: Interpretive Data Fasting glucose >/= 126 [...] 2017. Calcium 8.4(L) 8.5 - 10.3 mg/dL [facility] Blood 05/19/2021 4:[address] DESIGN ENGINEER 05/19/2021 4:[address] DESIGN ENGINEER Rhina Granados MD LAB BLOOD ORDERABLES Final R esult Performing Organization Address City/[facility] Co de Phone Number [facility] [address] [place] [address] * Magnesium (05/19/2021 4:[address] DESIGN ENGINEER) Magnesium 2.4 1.4 - 2.5 mg/dL [facility] Blood 05/19/2021 4:[address] DESIGN ENGINEER 05/19/2021 4:[address] DESIGN ENGINEER Silviano Huddleston NP LAB BLOOD ORDERABLES Final Result Performing Organization Address City/[facility]/ZIP Co de Phone Number [facility] [address] [place] [address] * Phosphorus (05/19/2021 4:[address] DESIGN ENGINEER) Phosphorus, pl 3.6 2.3 - 4.5 mg/dL [facility] Blood 05/19/2021 4:[address] DESIGN ENGINEER 05/19/2021 4:[address] DESIGN ENGINEER us Silviano Huddleston [employer] LAB BLOOD ORDERABLES Final Result Performing Organization Address [facility] Co de Phone Number [facility] [address] [place] [address] * eGFR (05/19/2021 2:[address] DESIGN ENGINEER) [facility] eGFR 54 mL/min/1.7 3 m2 [facility] Comment: Interpretive Data Reference Interval Normal ?>/= [...] last reviewed 2020 Blood 05/19/2021 2:[address] DESIGN ENGINEER 05/19/2021 2:[address] DESIGN ENGINEER us Elena Kelly [employer] LAB BLOOD ORDERABLES Final Result Performing Organization Address City/[facility] Co de Phone Number SHARIFAFORMERLY NAMED [facility] [address] [place] [address] * Magnesium (05/19/2021 2:[address] DESIGN ENGINEER) Magnesium 2.4 1.4 - 2.5 mg/dL [facility] Blood 05/19/2021 2:[address] DESIGN ENGINEER 05/19/2021 2:[address] DESIGN ENGINEER Elena Kelly NP LAB BLOOD ORDERABLES Final Result [facility] [address] Department [place] [address] * (ABNORMAL) Basic metabolic panel (05/19/2021 2:[address] DESIGN ENGINEER) Pathologist [facility] Sodium 131(L) 135 - 145 mmol/L [facility] Potassium, pl 3.9 3.3 - 4.9 mmol/L [facility] Chloride 95(L) 97 - 110 mmol/L [facility] CO2 21(L) 22 - 32 mmol/L [facility] Anion gap 15 2 - 15 mmol/L [facility] BUN 49(H) 8 - 25 mg/dL [facility] Creatinine 1.41(H) 0.80 - 1.30 mg/dL [facility] Glucose 180 70 - 199 mg/dL [facility] Comment: Interpretive Data Fasting glucose [...] 2017. Calcium 8.3(L) 8.5 - 10.3 mg/dL CERFORMERLY NAMED [facility] Blood 05/19/2021 2:[address] DESIGN ENGINEER 05/19/2021 2:[address] DESIGN ENGINEER Elena Kelly NP LAB BLOOD ORDERABLES Final Result Performing Organization Address [facility] Co de Phone Number [facility] DON [address] [facility] [place] [address] * POCT glucose (05/19/2021 1:[address] DESIGN ENGINEER) Glucose, POC 166 70 - 199 mg/dL [facility] Blood 05/19/2021 1:[address] DESIGN ENGINEER 05/19/2021 1:[address] DESIGN ENGINEER Rhina Granados MD LAB POCT ORDERABLES - DEVICE Final Result Performing Organization Address [facility] de Phone Number [facility] DON [id number] [facility] [place] [address] * Potassium, whole blood (05/19/2021 1:[address] DESIGN ENGINEER) Pathologist [facility] Potassium, bld 3.8 3.3 - 4.9 mmol/L [facility] Comment: Interpretive Data Unable to assess hemolysis. ??Invitro hemolysis causes falsely elevated potassium. Current Interpretive Data was last revised on 2020. Blood 05/19/2021 1:[address] DESIGN ENGINEER 05/19/2021 2:[address] DESIGN ENGINEER us Elena Kelly NP LAB BLOOD ORDERABLES Final Result Performing Organization Address [facility] de Phone Number [facility] DON [address] [facility] [place] [address] * (ABNORMAL) D-dimer, quantitative (05/18/2021 10:[address] DESIGN ENGINEER) D-Dimer 1,998(H) <=499 ng/mL FEU [facility] Comment: Interpretive data FDA approved the [...] 68, VTE cut-off 680 ng/ml FEU. References; Schouten HT et al. Brit Med J. 2013;346:f2492. Mando et al. Annals Int Med. 2015;163:701-11. Current interpretive data was last revised on 2019. Blood 05/18/2021 10:[address] DESIGN ENGINEER 05/18/2021 10:[address] DESIGN ENGINEER Elena Kelly NP LAB BLOOD ORDERABLES Final Result Performing Organization Address [facility] de Phone Number [facility] [address] [place] [address] * (ABNORMAL) Hepatic function panel (05/18/2021 9:[address] DESIGN ENGINEER) Bilirubin, total 0.6 0.1 - 1.2 mg/dL [...] Units/L [facility] Blood 05/18/2021 9:[address] DESIGN ENGINEER 05/18/2021 10:[address] DESIGN ENGINEER Elena Kelly NP LAB BLOOD ORDERABLES Final Result Performing Organization Address [facility] Co de Phone Number [facility] FLORENCIA [address] [place] [address] * Beta-hydroxybutyrate (05/18/2021 9:[address] DESIGN ENGINEER) Beta-Hydroxybut yrate 0.4 <=0.5 mmol/L [facility] Blood 05/18/2021 9:[address] DESIGN ENGINEER 05/18/2021 10:[address] DESIGN ENGINEER Elena Kelly NP LAB BLOOD ORDERABLES Final Result Performing Organization Address [facility] Co de Phone Number [facility] DON [address] [facility] [place] [address] * Lactate (05/18/2021 9:[address] DESIGN ENGINEER) Lactate 0.9 0.7 - 2.0 mmol/L [facility] Blood 05/18/2021 9:[address] DESIGN ENGINEER 05/18/2021 10:[address] DESIGN ENGINEER Elena Kelly NP LAB BLOOD ORDERABLES Final Result Performing Organization Address [facility] de Phone Number [facility] DON [address] [facility] [place] [address] * (ABNORMAL) POCT glucose (05/18/2021 8:[address] DESIGN ENGINEER) Glucose, POC 200(H) 70 - 199 mg/dL [facility] CH Blood 05/18/2021 8:[address] DESIGN ENGINEER 05/18/2021 8:[address] DESIGN ENGINEER Rhina Granados MD LAB POCT ORDERABLES - DEVICE Final Result Performing Organization Address [facility] de Phone Number [facility] DON [address] [address] [facility] [place] [address] * (ABNORMAL) Blood gas, arterial (05/18/2021 7:[address] DESIGN ENGINEER) pH, Art 7.45 7.35 - 7.45 [facility] [...] % [facility] Blood 05/18/2021 7:[address] DESIGN ENGINEER 05/18/2021 8:[address] DESIGN ENGINEER Elena Kelly NP LAB B[place] [address] [address] [place] [address] * Critical Care (05/18/2021 7:[address] DESIGN ENGINEER) Narrative Jose Conti MD - 05/18/2021 7:[address] DESIGN ENGINEER Elena Kelly NP ? 05/19/2021 ??6:16 AM [...] plan with the ICU team and other medical/program evaluation consultant staff, making frequent assessments and decisions [...] Final Result * eGFR (05/18/2021 5:[address] DESIGN ENGINEER) eGFR 40 mL/min/1.7 3 m2 [facility] Comment: Interpretive [...] last reviewed 2020 Blood 05/18/2021 5:[address] DESIGN ENGINEER 05/18/2021 5:[address] DESIGN ENGINEER us Rhina Granados MD LAB BLOOD ORDERABLES Final R esult [facility] [address] Department [place] [address] * eGFR (05/18/2021 5:[address] DESIGN ENGINEER) eGFR 39 mL/min/1.7 3 m2 [facility] Comment: Interpretive Data Reference Interval Normal ?>/= [...] last reviewed 2020 Blood 05/18/2021 5:[address] DESIGN ENGINEER 05/18/2021 6:[address] DESIGN ENGINEER Rhina Granados MD LAB BLOOD ORDERABLES Final R esult [facility] [address] [place] [address] * TSH reflex to free T4 (05/18/2021 5:[address] DESIGN ENGINEER) TSH 1.46 0.30 - 4.20 mcIUnit/mL [facility] Blood 05/18/2021 5:[address] DESIGN ENGINEER 05/18/2021 5:[address] DESIGN ENGINEER Caleb MOODY LAB BLOOD ORDERABLES Final Result [facility] [address] [employer] [place], [place] [id number] * Magnesium (05/18/2021 5:[address] DESIGN ENGINEER) Magnesium 2.5 1.4 - 2.5 mg/dL [facility] Blood 05/18/2021 5:[address] DESIGN ENGINEER 05/18/2021 5:[address] DESIGN ENGINEER Rhina Granados MD LAB BLOOD ORDERABLES Final R esult Performing Organization Address [facility] Co de Phone Number [facility] DON [address] [address] [place] [address] * (ABNORMAL) Basic metabolic panel (05/18/2021 5:[address] DESIGN ENGINEER) Sodium 133(L) 135 - 145 mmol/L [facility] Potassium, pl 4.4 3.3 - 4.9 mmol/L [facility] Chloride 95(L) 97 - 110 mmol/L [facility] CO2 22 22 - 32 mmol/L [facility] Anion gap 16(H) 2 - 15 mmol/L [facility] BUN 51(H) 8 - 25 mg/dL [facility] Creatinine 1.85(H) 0.80 - 1.30 mg/dL [facility] Glucose 143 70 - 199 mg/dL [facility] Comment: Interpretive Data Fasting glucose >/= 126 [...] 8.3(L) 8.5 - 10.3 mg/dL [facility] Blood 05/18/2021 5:[address] DESIGN ENGINEER 05/18/2021 5:[address] DESIGN ENGINEER Rhina Granados MD LAB BLOOD ORDERABLES Final R esult [facility] [address] [place] [address] * (ABNORMAL) Basic metabolic panel (05/18/2021 5:[address] DESIGN ENGINEER) Sodium 132(L) 135 - 145 mmol/L [facility] Potassium, pl 4.3 3.3 - 4.9 mmol/L [facility] Chloride 94(L) 97 - 110 mmol/L [facility] CO2 21(L) 22 - 32 mmol/L [facility] Anion gap 17(H) 2 - 15 mmol/L [facility] BUN 52(H) 8 - 25 mg/dL CERFORMERLY NAMED [facility] Creatinine 1.82(H) 0.80 - 1.30 mg/dL [facility] Glucose 143 70 - 199 mg/dL [facility] Comment: Interpretive Data Fasting glucose >/= 126 [...] 2017. Calcium 8.3(L) 8.5 - 10.3 mg/dL [facility] Blood 05/18/2021 5:[address] DESIGN ENGINEER 05/18/2021 5:[address] DESIGN ENGINEER Rhina Granados MD LAB BLOOD ORDERABLES Final R esult Performing Organization Address City/[facility]/ZIP Co de Phone Number [facility] DON [phone] Department [place] [address] * POCT glucose (05/18/2021 5:[address] DESIGN ENGINEER) Glucose, POC 141 70 - 199 mg/dL [facility] Blood 05/18/2021 5:[address] DESIGN ENGINEER 05/18/2021 5:[address] DESIGN ENGINEER Rhina Granados MD LAB POCT ORDERABLES - DEVICE Final Result Performing Organization Address City/[facility]/ZIP Co de Phone Number [facility] [address] [place] [address] * (ABNORMAL) Cortisol (05/18/2021 2:[address] DESIGN ENGINEER) Cortisol >63.0(H) 4.8 - 19.5 mcg/dl [facility]ORMERLY NAMED [facility] Comment: Interpretive Data Normal Range: ??4.8 - 19.5 mcg/dL; ??Evening: ??Half of morning value. ?? This analyte undergoes marked diurnal variation. ??Ranges indicated apply to morning specimens. ?? Current interpretive data was last revised 2018. Blood 05/18/2021 2:[address] DESIGN ENGINEER 05/18/2021 2:[address] DESIGN ENGINEER Narrative [facility] - 05/18/2021 3:[address] DESIGN ENGINEER Second draw 30 minutes after administration of cosyntropin. Caleb MOODY LAB BLOOD ORDERABLES Final Result Performing Organization Address City/[facility]/ZIP Co de Phone Number [facility] [address] [address] [place] [address] * (ABNORMAL) Cortisol (05/18/2021 1:[address] DESIGN ENGINEER) Cortisol 53.1(H) 4.8 - 19.5 mcg/dl SH[facility]ORMERLY NAMED [facility] Comment: Interpretive Data Normal Range: ??4.8 - 19.5 mcg/dL; ??Evening: ??Half of morning value. ?? This analyte undergoes marked diurnal variation. ??Ranges indicated apply to morning specimens. ?? Current interpretive data was last revised 2018. Blood 05/18/2021 1:[address] DESIGN ENGINEER 05/18/2021 1:[address] DESIGN ENGINEER Narrative [facility] - 05/18/2021 2:[address] DESIGN ENGINEER Third draw 60 minutes after administration of cosyntropin. us Caleb MOODY LAB BLOOD ORDERABLES Final Result Performing Organization Address [facility] de Phone Number [facility] [address] [place] [address] * POCT glucose (05/18/2021 1:[address] DESIGN ENGINEER) Glucose, POC 197 70 - 199 mg/dL [facility] Blood 05/18/2021 1:[address] DESIGN ENGINEER 05/18/2021 1:[address] DESIGN ENGINEER Rhina Granados MD LAB POCT ORDERABLES - DEVICE Final Result Performing Organization Address [facility] de Phone Number [facility] [address] [place] [address] * eGFR (05/18/2021 12:[address] DESIGN ENGINEER) eGFR 42 mL/min/1.7 3 m2 [facility] Comment: Interpretive Data Reference Interval Normal ?>/= [...] reviewed 2020 Blood 05/18/2021 12:[address] DESIGN ENGINEER 05/18/2021 12:[address] DESIGN ENGINEER us Rhina Granados MD LAB BLOOD ORDERABLES Final R esult Performing Organization Address [facility] Co de Phone Number [facility] [place] [address] [place] [address] * (ABNORMAL) Cortisol (05/18/2021 12:[address] DESIGN ENGINEER) Cortisol 25.5(H) 4.8 - 19.5 mcg/dl [facility] Comment: Interpretive Data Normal Range: ??4.8 - 19.5 mcg/dL; ??Evening: ??Half of morning value. ?? This analyte undergoes marked diurnal variation. ??Ranges indicated apply to morning specimens. ?? Current interpretive data was last revised 2018. Blood 05/18/2021 12:[address] DESIGN ENGINEER 05/18/2021 12:[address] DESIGN ENGINEER Narrative [facility] - 05/18/2021 1:[address] DESIGN ENGINEER First draw prior to administration of cosyntropin. us Caleb MOODY LAB BLOOD ORDERABLES Final Result Performing Organization Address [facility] Co de Phone Number [facility] DON [address] [address] Department [place] [address] * (ABNORMAL) Basic metabolic panel (05/18/2021 12:[address] DESIGN ENGINEER) Sodium 130(L) 135 - 145 mmol/L CERFORMERLY NAMED [facility] Potassium, pl 3.7 3.3 - 4.9 mmol/L [facility] Chloride 93(L) 97 - 110 mmol/L [facility] CO2 20(L) 22 - 32 mmol/L [facility] Anion gap 17(H) 2 - 15 mmol/L [facility] BUN 48(H) 8 - 25 mg/dL [facility] Creatinine 1.73(H) 0.80 - 1.30 mg/dL [facility] Glucose 239(H) 70 - 199 mg/dL [facility] Comment: Interpretive [...] 2017. Calcium 8.3(L) 8.5 - 10.3 mg/dL [facility] Blood 05/18/2021 12:[address] DESIGN ENGINEER 05/18/2021 12:[address] DESIGN ENGINEER us Rhina Granados MD LAB BLOOD ORDERABLES Final R esult Performing Organization Address [facility] Co de Phone Number [facility] DON [address] [place] [address] * (ABNORMAL) POCT glucose (05/18/2021 12:[address] DESIGN ENGINEER) [facility] Glucose, POC 230(H) 70 - 199 mg/dL [facility] Blood 05/18/2021 12:[address] DESIGN ENGINEER 05/18/2021 12:[address] DESIGN ENGINEER Rhina Granados MD LAB POCT ORDERABLES - DEVICE Final Result Performing Organization Address [facility] Co de Phone Number [facility] DON [address] [place] [address] * NM Pulmonary Perfusion Imaging (05/18/2021 11:[address] DESIGN ENGINEER) Anatomical Region Laterality Modality Body N/A Nuclear Medicine 05/18/2021 1:[address] DESIGN ENGINEER Impressions 05/18/2021 1:[address] DESIGN ENGINEER Findings described above are consistent with low probability of pulmonary embolus. ??The patient has mild vascular congestion. Electronically signed by: Elvira Blackman M.D. Narrative 05/18/2021 1:[address] DESIGN ENGINEER EXAMINATION: NM PULMONARY PERFUSION IMAGING HISTORY: The [...] Blackman M.D. us Rhina Granados MD IMG NM PROCEDURES Final Resu lt * (ABNORMAL) POCT glucose (05/18/2021 11:[address] DESIGN ENGINEER) Glucose, POC 209(H) 70 - 199 mg/dL [facility] Blood 05/18/2021 11:[address] DESIGN ENGINEER 05/18/2021 11:[address] DESIGN ENGINEER us Rhina Granados MD LAB POCT ORDERABLES - DEVICE Final Result [facility] [address] [facility] [place] [address] * Critical Care (05/18/2021 10:[address] DESIGN ENGINEER) Narrative Alexandru Porter MD - 05/18/2021 10:[address] DESIGN ENGINEER Caleb Toth PA ? 05/18/2021 ??5:43 PM [...] plan with the ICU team and other medical/program evaluation consultant staff, making frequent assessments and decisions [...] Result * POCT glucose (05/18/2021 9:[address] DESIGN ENGINEER) [facility] Glucose, POC 167 70 - 199 mg/dL [facility] DON Blood 05/18/2021 9:[address] DESIGN ENGINEER 05/18/2021 9:[address] DESIGN ENGINEER Rhina Granados MD LAB POCT ORDERABLES - DEVICE Final Result Performing Organization Address [facility] de Phone Number [facility] [address] [address] [facility] [place] [address] * POCT glucose (05/18/2021 8:[address] DESIGN ENGINEER) Glucose, POC 147 70 - 199 mg/dL [facility] Blood 05/18/2021 8:[address] DESIGN ENGINEER 05/18/2021 8:[address] DESIGN ENGINEER Rhina Granados MD LAB POCT ORDERABLES - DEVICE Final Result Performing Organization Address [facility] de Phone Number [facility] [address] [address] [facility] [place] [address] * POCT glucose (05/18/2021 6:[address] DESIGN ENGINEER) Glucose, POC 131 70 - 199 mg/dL [facility] Blood 05/18/2021 6:[address] DESIGN ENGINEER 05/18/2021 6:[address] DESIGN ENGINEER Rhina Granados MD LAB POCT ORDERABLES - DEVICE Final Result Performing Organization Address [facility] de Phone Number [facility] [address] [address] [facility] [place] [address] * eGFR (05/18/2021 6:[address] DESIGN ENGINEER) eGFR 56 mL/min/1.7 3 m2 [facility] Comment: Interpretive Data [...] last reviewed 2020 Blood 05/18/2021 6:[address] DESIGN ENGINEER 05/18/2021 6:[address] DESIGN ENGINEER us Rhina Granados MD LAB BLOOD ORDERABLES Final R esult [facility] [address] [place] [address] * (ABNORMAL) Pro B-type natriuretic peptide (05/18/2021 6:[address] DESIGN ENGINEER) NT-proBNP 2,488(H) <=300 pg/mL [facility] DON Comment: [...] Revised Date: 2018. Blood 05/18/2021 6:[address] DESIGN ENGINEER 05/18/2021 10:[address] DESIGN ENGINEER Rhina Granados MD LAB BLOOD ORDERABLES Final R esult [facility] [address] Department [place] [address] * (ABNORMAL) Basic metabolic panel (05/18/2021 6:[address] DESIGN ENGINEER) Sodium 132(L) 135 - 145 mmol/L [facility] Potassium, pl 3.1(L) 3.3 - 4.9 mmol/L [facility] Comment:Hemolysis present. R esults may be affected. Chloride 95(L) 97 - 110 mmol/L [facility] CO2 21(L) 22 - 32 mmol/L [facility] Anion gap 16(H) 2 - 15 mmol/L [facility] BUN 44(H) 8 - 25 mg/dL [facility] Creatinine 1.38(H) 0.80 - 1.30 mg/dL [facility] Glucose 145 70 - 199 mg/dL [facility] Comment: Interpretive Data Fasting glucose >/= 126 [...] 2017. Calcium 8.1(L) 8.5 - 10.3 mg/dL [facility] Blood 05/18/2021 6:[address] DESIGN ENGINEER 05/18/2021 6:[address] DESIGN ENGINEER us Rhina Granados MD LAB BLOOD ORDERABLES Final R esult Performing Organization Address City/[facility] Co de Phone Number [facility] [address] [place] [address] * POCT glucose (05/18/2021 5:[address] DESIGN ENGINEER) Glucose, POC 140 70 - 199 mg/dL [facility] Blood 05/18/2021 5:[address] DESIGN ENGINEER 05/18/2021 5:[address] DESIGN ENGINEER Rhina Granados MD LAB POCT ORDERABLES - DEVICE Final Result Performing Organization Address [facility] Co de Phone Number [facility] [address] [place] [address] * XR Chest 1 View (05/18/2021 5:[address] DESIGN ENGINEER) Anatomical Region Laterality Modality Body, Chest N/A Computed Radiogr aphy 05/18/2021 3:[address] DESIGN ENGINEER Impressions 05/18/2021 3:[address] DESIGN ENGINEER Postoperative and chronic changes. Electronically signed by: Deandre Lomeli M.D. Narrative 05/18/2021 3:[address] DESIGN ENGINEER EXAMINATION: XR CHEST 1 VIEW HISTORY: The patient is a 60-year-old male who presents with hypoxia. Comparison is made with the previous study dated 05/17/2021 TECHNIQUE: AP portable view of the chest. FINDINGS: Borderline Cardiomegaly with aortic atherosclerosis and postsurgical change. ??No significant vascular congestion. ??Patchy peripheral infiltrate or scar slightly more on the left.. ??The tip of a retracted Guadalupita-Radha catheter is in the superior vena cava. [...] the left.. The tip of a retracted Guadalupita-Radha catheter is in the superior vena cava. IMPRESSION: Postoperative and chronic changes. Electronically signed by: Deandre Lomeli M.D. us Varsha Crowder [employer] IMG XR PROCEDURES Final Re sult * POCT glucose (05/18/2021 4:[address] DESIGN ENGINEER) Glucose, POC 152 70 - 199 mg/dL [facility] Blood 05/18/2021 4:[address] DESIGN ENGINEER 05/18/2021 4:[address] DESIGN ENGINEER us Rhina Granados MD LAB POCT ORDERABLES - DEVICE Final Result [facility] [address] [place] [address] * POCT glucose (05/18/2021 3:[address] DESIGN ENGINEER) Glucose, POC 140 70 - 199 mg/dL [facility] Blood 05/18/2021 3:[address] DESIGN ENGINEER 05/18/2021 3:[address] DESIGN ENGINEER Rhina Granados MD LAB POCT ORDERABLES - DEVICE Final Result Performing Organization Address [facility] de Phone Number [facility] [address] [facility] [place] [address] * POCT glucose (05/18/2021 3:[address] DESIGN ENGINEER) Glucose, POC 118 70 - 199 mg/dL [facility] Blood 05/18/2021 3:[address] DESIGN ENGINEER 05/18/2021 3:[address] DESIGN ENGINEER Rhina Granados MD LAB POCT ORDERABLES - DEVICE Final Result Performing Organization Address [facility] de Phone Number [facility] [address] [facility] [place] [address] * eGFR (05/18/2021 2:[address] DESIGN ENGINEER) Pathologist [facility] eGFR 45 mL/min/1.7 3 m2 [facility] Comment: Interpretive Data Reference Interval Normal ?>/= [...] last reviewed 2020 Blood 05/18/2021 2:[address] DESIGN ENGINEER 05/18/2021 2:[address] DESIGN ENGINEER us Rhina Granados MD LAB BLOOD ORDERABLES Final R esult Performing Organization Address City/[facility]/ZIP Co de Phone Number [facility] [address] [place] [address] * (ABNORMAL) CBC without differential (05/18/2021 2:[address] DESIGN ENGINEER) WBC 7.6 3.8 - 9.9 K/cumm C[facility]ER [...] K/cumm [facility] Blood 05/18/2021 2:[address] DESIGN ENGINEER 05/18/2021 2:[address] DESIGN ENGINEER us Silviano Huddleston NP LAB BLOOD ORDERABLES Final Result Performing Organization Address City/[facility]/ZIP Co de Phone Number [facility] [address] Department [place] [address] * (ABNORMAL) Magnesium (05/18/2021 2:[address] DESIGN ENGINEER) Magnesium 2.7(H) 1.4 - 2.5 mg/dL [facility] Blood 05/18/2021 2:[address] DESIGN ENGINEER 05/18/2021 2:[address] DESIGN ENGINEER Silviano Saldivar [facility] [employer] LAB BLOOD ORDERABLES Final Result Performing Organization Address [facility] Co de Phone Number [facility] [address] [place] [address] * (ABNORMAL) Phosphorus (05/18/2021 2:[address] DESIGN ENGINEER) Pathologist [facility] Phosphorus, pl 4.6(H) 2.3 - 4.5 mg/dL [facility] Blood 05/18/2021 2:[address] DESIGN ENGINEER 05/18/2021 2:[address] DESIGN ENGINEER Silviano Huddleston [employer] LAB BLOOD ORDERABLES Final Result Performing Organization Address [facility] de Phone Number [facility] [address] [facility] [place] [address] * (ABNORMAL) Basic metabolic panel (05/18/2021 2:[address] DESIGN ENGINEER) Sodium 132(L) 135 - 145 mmol/L [facility] Potassium, pl 3.7 3.3 - 4.9 mmol/L [facility] Chloride 95(L) 97 - 110 mmol/L [facility] CO2 22 22 - 32 mmol/L [facility] Anion gap 15 2 - 15 mmol/L [facility] BUN 44(H) 8 - 25 mg/dL [facility] Creatinine 1.63(H) 0.80 - 1.30 mg/dL [facility] Glucose 111 70 - 199 mg/dL [facility] Comment: [...] 2017. Calcium 8.6 8.5 - 10.3 mg/dL [facility] Blood 05/18/2021 2:[address] DESIGN ENGINEER 05/18/2021 2:[address] DESIGN ENGINEER Rhina Granados MD LAB BLOOD ORDERABLES Final R esult Performing Organization Address [facility] Co de Phone Number [facility] NAMED [facility] [address] [employer] [address] * POCT glucose (05/18/2021 2:[address] DESIGN ENGINEER) Glucose, POC 108 70 - 199 mg/dL [facility] Blood 05/18/2021 2:[address] DESIGN ENGINEER 05/18/2021 2:[address] DESIGN ENGINEER Rhina Granados MD LAB POCT ORDERABLES - DEVICE Final Result Performing Organization Address [facility] Co de Phone Number [facility] [address] [facility] [place] [address] * POCT glucose (05/18/2021 1:[address] DESIGN ENGINEER) Glucose, POC 111 70 - 199 mg/dL [facility] Blood 05/18/2021 1:[address] DESIGN ENGINEER 05/18/2021 1:[address] DESIGN ENGINEER Rhina Granados MD LAB POCT ORDERABLES - DEVICE Final Result Performing Organization Address [facility] Co de Phone Number [facility] NAMED [facility] [address] [place] [address] * POCT glucose (05/17/2021 11:[address] DESIGN ENGINEER) Glucose, POC 106 70 - 199 mg/dL [facility] Blood 05/17/2021 11:[address] DESIGN ENGINEER 05/17/2021 11:[address] DESIGN ENGINEER Rhina Granados MD LAB POCT ORDERABLES - DEVICE Final Result Performing Organization Address [facility] de Phone Number [facility] [address] [facility] [place] [address] * POCT glucose (05/17/2021 10:[address] DESIGN ENGINEER) Glucose, POC 82 70 - 199 mg/dL [facility] Blood 05/17/2021 10:[address] DESIGN ENGINEER 05/17/2021 10:[address] DESIGN ENGINEER Rhina Granados MD LAB POCT ORDERABLES - DEVICE Final Result Performing Organization Address [facility] Phone Number [facility] [address] [facility] [place] [address] * POCT glucose (05/17/2021 9:[address] DESIGN ENGINEER) Pathologist [facility] Glucose, POC 193 70 - 199 mg/dL [facility] Blood 05/17/2021 9:[address] DESIGN ENGINEER 05/17/2021 9:[address] DESIGN ENGINEER Rhina Granados MD LAB POCT ORDERABLES - DEVICE Final Result Performing Organization Address [facility] de Phone Number [facility] [address] [facility] [place] [address] * eGFR (05/17/2021 9:[address] DESIGN ENGINEER) Pathologist [facility] eGFR 45 mL/min/1.7 3 m2 [facility] Comment: Interpretive Data Reference Interval Normal ?>/= [...] last reviewed 2020 Blood 05/17/2021 9:[address] DESIGN ENGINEER 05/17/2021 9:[address] DESIGN ENGINEER us Rhina Granados MD LAB BLOOD ORDERABLES Final R esult [facility] [address] [place] [address] * (ABNORMAL) Basic metabolic panel (05/17/2021 9:[address] DESIGN ENGINEER) Sodium 130(L) 135 - 145 mmol/L [facility] Potassium, pl 3.6 3.3 - 4.9 mmol/L [facility] Chloride 94(L) 97 - 110 mmol/L [facility] CO2 21(L) 22 - 32 mmol/L [facility] Anion gap 15 2 - 15 mmol/L [facility] BUN 43(H) 8 - 25 mg/dL [facility] Creatinine 1.63(H) 0.80 - 1.30 mg/dL [facility] Glucose 140 70 - 199 mg/dL [facility] Comment: [...] Calcium 8.4(L) 8.5 - 10.3 mg/dL [facility] Blood 05/17/2021 9:[address] DESIGN ENGINEER 05/17/2021 9:[address] DESIGN ENGINEER us Rhina Granados MD LAB BLOOD ORDERABLES Final R esult [facility] [address] Department [place] [address] * XR Chest 1 View (05/17/2021 9:[address] DESIGN ENGINEER) Anatomical Region Laterality Modality Body, Chest N/A Computed Radiogr aphy 05/17/2021 10:[address] DESIGN ENGINEER Impressions 05/17/2021 10:[address] DESIGN ENGINEER Mild vascular congestion. Electronically signed by: Elvira Blackman M.D. Narrative 05/17/2021 10:[address] DESIGN ENGINEER EXAMINATION: XR CHEST 1 VIEW HISTORY: The patient is a 60-year-old male who presents with hypoxia. Comparison is made with the previous study dated 05/09/2021. TECHNIQUE: AP portable view of the chest. FINDINGS: Borderline Cardiomegaly with aortic atherosclerosis. ??Mild degree of vascular congestion. ??No focal infiltrate. ??The tip of a retracted Guadalupita-Radha catheter is in the superior vena cava. [...] focal infiltrate. The tip of a retracted Guadalupita-Radha catheter is in the superior vena cava. IMPRESSION: Mild vascular congestion. Electronically signed by: Elvira Blackman M.D. Elena Kelly NP IMG XR PROCEDURES Final Res ult * POCT glucose (05/17/2021 8:[address] DESIGN ENGINEER) Glucose, POC 172 70 - 199 mg/dL [facility] Blood 05/17/2021 8:[address] DESIGN ENGINEER 05/17/2021 8:[address] DESIGN ENGINEER Rhina Granados MD LAB POCT ORDERABLES - DEVICE Final Result Performing Organization Address [facility] Co de Phone Number [facility] [address] [place] [address] * POCT glucose (05/17/2021 7:[address] DESIGN ENGINEER) Glucose, POC 195 70 - 199 mg/dL [facility] Blood 05/17/2021 7:[address] DESIGN ENGINEER 05/17/2021 7:[address] DESIGN ENGINEER Rhina Granados MD LAB POCT ORDERABLES - DEVICE Final Result Performing Organization Address [facility] Co de Phone Number [facility] [address] [place] [address] * Critical Care (05/17/2021 7:[address] DESIGN ENGINEER) Narrative Jose Conti MD - 05/17/2021 7:[address] DESIGN ENGINEER Elena Kelly NP ? 05/18/2021 ??6:14 AM [...] plan with the ICU team and other medical/program evaluation consultant staff, making frequent assessments and decisions [...] * (ABNORMAL) POCT glucose (05/17/2021 6:[address] DESIGN ENGINEER) Glucose, POC 216(H) 70 - 199 mg/dL [facility] Blood 05/17/2021 6:[address] DESIGN ENGINEER 05/17/2021 6:[address] DESIGN ENGINEER us Rhina Graandos MD LAB POCT ORDERABLES - DEVICE Final Result [facility] [address] [place] [address] * POCT glucose (05/17/2021 6:[address] DESIGN ENGINEER) Glucose, POC 148 70 - 199 mg/dL [facility] Blood 05/17/2021 6:[address] DESIGN ENGINEER 05/17/2021 6:[address] DESIGN ENGINEER Rhina Granados MD LAB POCT ORDERABLES - DEVICE Final Result Performing Organization Address [facility] Co de Phone Number [facility] [address] [facility] [place] [address] * POCT glucose (05/17/2021 5:[address] DESIGN ENGINEER) Glucose, POC 115 70 - 199 mg/dL [facility] Blood 05/17/2021 5:[address] DESIGN ENGINEER 05/17/2021 5:[address] DESIGN ENGINEER Rhina Granados MD LAB POCT ORDERABLES - DEVICE Final Result Performing Organization Address [facility] de Phone Number [facility] [address] [facility] [place] [address] * POCT glucose (05/17/2021 3:[address] DESIGN ENGINEER) Glucose, POC 134 70 - 199 mg/dL [facility] Blood 05/17/2021 3:[address] DESIGN ENGINEER 05/17/2021 3:[address] DESIGN ENGINEER Rhina Granados MD LAB POCT ORDERABLES - DEVICE Final Result Performing Organization Address [facility] Co de Phone Number [facility] [address] [facility] [place] [address] * eGFR (05/17/2021 2:[address] DESIGN ENGINEER) eGFR 45 mL/min/1.7 3 m2 [facility] Comment: Interpretive Data Reference Interval Normal ?>/= [...] last reviewed 2020 Blood 05/17/2021 2:[address] DESIGN ENGINEER 05/17/2021 2:[address] DESIGN ENGINEER Rhina Granados MD LAB BLOOD ORDERABLES Final R esult Performing Organization Address [facility] de Phone Number [facility] [address] [place] [address] * (ABNORMAL) Magnesium (05/17/2021 2:[address] DESIGN ENGINEER) Magnesium 3.3(H) 1.4 - 2.5 mg/dL [facility] Blood 05/17/2021 2:[address] DESIGN ENGINEER 05/17/2021 2:[address] DESIGN ENGINEER Rhina Granados MD LAB BLOOD ORDERABLES Final R esult Performing Organization Address [facility] de Phone Number [facility] [address] [place] [address] * (ABNORMAL) Basic metabolic panel (05/17/2021 2:[address] DESIGN ENGINEER) Sodium 130(L) 135 - 145 mmol/L [facility] Potassium, pl 3.5 3.3 - 4.9 mmol/L [facility] Chloride 92(L) 97 - 110 mmol/L [facility] [...] 8.4(L) 8.5 - 10.3 mg/dL [facility] Blood 05/17/2021 2:[address] DESIGN ENGINEER 05/17/2021 2:[address] DESIGN ENGINEER us Rhina Granados MD LAB BLOOD ORDERABLES Final R esult Performing Organization Address City/State/[facility] Co de Phone Number [facility] [address] [place] [address] * POCT glucose (05/17/2021 2:[address] DESIGN ENGINEER) Glucose, POC 176 70 - 199 mg/dL [facility] Blood 05/17/2021 2:[address] DESIGN ENGINEER 05/17/2021 2:[address] DESIGN ENGINEER Rhina Granados MD LAB POCT ORDERABLES - DEVICE Final Result Performing Organization Address City/[facility] de Phone Number [facility] [address] [facility] [place] [address] * (ABNORMAL) POCT glucose (05/17/2021 1:[address] DESIGN ENGINEER) Glucose, POC 245(H) 70 - 199 mg/dL [facility] Blood 05/17/2021 1:[address] DESIGN ENGINEER 05/17/2021 1:[address] DESIGN ENGINEER Rhina Granados MD LAB POCT ORDERABLES - DEVICE Final Result Performing Organization Address [facility] de Phone Number [facility] [address] [facility] [place] [address] * (ABNORMAL) POCT glucose (05/17/2021 12:[address] DESIGN ENGINEER) Pathologist [facility] Glucose, POC 299(H) 70 - 199 mg/dL [facility] Blood 05/17/2021 12:[address] DESIGN ENGINEER 05/17/2021 12:[address] DESIGN ENGINEER Rhina Granados MD LAB POCT ORDERABLES - DEVICE Final Result Performing Organization Address [facility] de Phone Number [facility] [address] [facility] [place] [address] * eGFR (05/17/2021 9:[address] DESIGN ENGINEER) eGFR 63 mL/min/1.7 3 m2 [facility] Comment: Interpretive Data Reference Interval Normal ?>/= [...] last reviewed 2020 Blood 05/17/2021 9:[address] DESIGN ENGINEER 05/17/2021 10:[address] DESIGN ENGINEER Rhina Granados MD LAB BLOOD ORDERABLES Final R esult Performing Organization Address City/[facility]/ZIP Co de Phone Number [facility] [address] [place] [address] * (ABNORMAL) Beta-hydroxybutyrate (05/17/2021 9:[address] DESIGN ENGINEER) Beta-Hydroxybut yrate 1.4(H) <=0.5 mmol/L [facility] Blood 05/17/2021 9:[address] DESIGN ENGINEER 05/17/2021 11:[address] DESIGN ENGINEER Caleb MOODY LAB BLOOD ORDERABLES Final Result Performing Organization Address City/State/[facility] Co de Phone Number [facility] [address] [place] [address] * Lactate (05/17/2021 9:[address] DESIGN ENGINEER) Lactate 1.7 0.7 - 2.0 mmol/L [facility] Blood 05/17/2021 9:[address] DESIGN ENGINEER 05/17/2021 10:[address] DESIGN ENGINEER Caleb MOODY LAB BLOOD ORDERABLES Final Result [facility] [address] [employer] [place], [place] [id number] * (ABNORMAL) Basic metabolic panel (05/17/2021 9:[address] DESIGN ENGINEER) Sodium 129(L) 135 - 145 mmol/L [facility] [...] 2017. Calcium 8.4(L) 8.5 - 10.3 mg/dL [facility] Blood 05/17/2021 9:[address] DESIGN ENGINEER 05/17/2021 10:[address] DESIGN ENGINEER Rhina Granados MD LAB BLOOD ORDERABLES Final R esult [facility] [address] Department of [place] [place], [place] [id number] * (ABNORMAL) POCT glucose (05/17/2021 9:[address] DESIGN ENGINEER) Glucose, POC 268(H) 70 - 199 mg/dL [facility] Blood 05/17/2021 9:[address] DESIGN ENGINEER 05/17/2021 9:[address] DESIGN ENGINEER us Rhina Granados MD LAB POCT ORDERABLES - [place] [address] [address] [place] [address] * Critical Care (05/17/2021 8:[address] DESIGN ENGINEER) Narrative Alexandru Porter MD - 05/17/2021 8:[address] DESIGN ENGINEER Caleb Toth PA ? 05/17/2021 ??4:48 PM [...] plan with the patient's team and other medical/program evaluation consultant staff. This time was in addition to and separate from care provided by other practitioners on this day of service. ?? us Caleb MOODY IN CLINIC/BEDSIDE ORD ERABLES Final Result * XR Chest 1 Vw Portable (05/17/2021 7:[address] DESIGN ENGINEER) Anatomical Region Laterality Modality Body, Chest N/A Computed Radiogr aphy 05/17/2021 1:[address] DESIGN ENGINEER Impressions 05/17/2021 1:[address] DESIGN ENGINEER No change from previous. Electronically signed by: Humphrey Mojica M.D. Narrative 05/17/2021 1:[address] DESIGN ENGINEER EXAM: ?? XR CHEST 1 VIEW DATE: [...] * Oxyhemoglobin, central venous (05/17/2021 4:[address] DESIGN ENGINEER) Oxyhemoglobin, CV 83.8 % [facility] Comment: Interpretive Data No reference range established. Current interpretive data was last revised 2019. Blood 05/17/2021 4:[address] DESIGN ENGINEER 05/17/2021 5:[address] DESIGN ENGINEER us Jose Conti MD LAB BLOOD ORDERABLES Final Resul t [facility] [address] [place] [address] * TRANSTHORACIC ECHO (TTE) COMPLETE W DOPPLER/CF WO CONTRAST (05/17/2021 3:[address] DESIGN ENGINEER) Anatomical Region Laterality Modality Ultrasound 05/17/2021 3:[address] DESIGN ENGINEER Narrative 05/18/2021 8:[address] [place] [address] Echocardiogram Report Patient Name: DEEPAK ALVARADO W : 1960 Study Date: 05/17/2021 3:34:31 PM Gender: M Tech: NA Location: [place] [address] Ref Provider: RHINA GRANADOSHeight(Cm): 175 BSA: 1.96 [...] By: Rylee Brito DO, FACC, FASE, FASNC 2021-05-18 08:55:09 ROAD DESIGN ENGINEER CC: CC: CC: Procedure Note Rylee Brito DO - 05/18/2021 [place] [address] Echocardiogram Report Patient Name: DEEPAK ALVARADO WPatient ID: [id number] : [id number] Date: 05/17/2021 3:34:31 PM Gender: MAccession #: [id number] Tech: NALocation: [id number] Ref Provider: RHINA GRANADOSHeight(Cm): 175 BSA: 1.96Weight(Kg): [...] Electronically Signed By: Rylee Brito DO, GRETCHEN, FAISAL ESPARZA 2021-05-18 08:55:09 RO[address] DESIGN ENGINEER CC: CC: CC: Rhina Granados MD CV ECHO PROCEDURES Final Res ult * Oxyhemoglobin, central venous (05/17/2021 3:[address] DESIGN ENGINEER) Oxyhemoglobin, CV 57.0 % [facility] Comment: Interpretive Data No reference range established. Current interpretive data was last revised 2019. Blood 05/17/2021 3:[address] DESIGN ENGINEER 05/17/2021 3:[address] DESIGN ENGINEER Rhina Granados MD LAB BLOOD ORDERABLES Final R esult [facility] [address] [place] [address] * eGFR (05/17/2021 3:[address] DESIGN ENGINEER) eGFR 76 mL/min/1.7 3 m2 [facility] Comment: Interpretive [...] last reviewed 2020 Blood 05/17/2021 3:[address] DESIGN ENGINEER 05/17/2021 3:[address] DESIGN ENGINEER Jose Conti MD LAB BLOOD ORDERABLES Final Resul t [facility] [address] [place] [address] * (ABNORMAL) Differential, auto (05/17/2021 3:[address] DESIGN ENGINEER) Neutrophil abs 6.8(H) 1.7 - 6.5 K/cumm [facility] Imm gran abs 0.1 0.0 - 0.1 K/cumm [facility] Lymphocyte abs 1.0 0.8 - 3.3 K/cumm [facility] Monocyte abs 0.8 0.2 - 0.8 K/cumm [facility] Eosinophil abs 0.0 0.0 - 0.5 K/cumm [facility] Basophil abs 0.0 0.0 - 0.1 K/cumm [facility] Neutrophil pct 78.4 % [facility] Comment: Interpretive Data Percent cell count reference ranges are not reported, since discordance with absolute values may lead to misinterpretation of CBC data. Current Interpretive Data was last revised on 2017. Imm gran pct 0.6 % [facility]AM[facility] Comment: Interpretive Data Percent cell count reference ranges are not reported, since discordance with absolute values may lead to misinterpretation of CBC data. Current Interpretive Data was last revised on 2017. Lymphocyte pct 11.7 % [facility] Comment: Interpretive Data Percent cell count reference ranges are not reported, since discordance with absolute values may lead to misinterpretation of CBC data. Current Interpretive Data was last revised on 2017. Monocyte pct 9.0 % [facility] Comment: Interpretive Data Percent cell count reference ranges are not reported, since discordance with absolute values may lead to misinterpretation of CBC data. Current Interpretive Data was last revised on 2017. Eosinophil pct 0.1 % CER[facility] NAMED [facility] Comment: Interpretive Data Percent cell count reference ranges are not reported, since discordance with absolute values may lead to misinterpretation of CBC data. Current Interpretive Data was last revised on 2017. Basophil pct 0.2 % [facility] Comment: Interpretive Data Percent cell count reference ranges are not reported, since discordance with absolute values may lead to misinterpretation of CBC data. Current Interpretive Data was last revised on 2017. Blood 05/17/2021 3:[address] DESIGN ENGINEER 05/17/2021 3:[address] DESIGN ENGINEER Jose Conti MD LAB BLOOD ORDERABLES Final Resul t [facility] [address] Department of Laboratories [place], [place] [id number] * (ABNORMAL) CBC with auto differential (05/17/2021 3:[address] DESIGN ENGINEER) WBC 8.7 3.8 - 9.9 K/cumm [facility] Hgb 11.3(L) 13.0 - 17.5 g/dL [facility] Hct 33.8(L) 38.9 - 50.3 % [facility] Plt 267 150 - 400 K/cumm [facility] MPV 12.1 9.1 - 12.3 fL [facility] RBC 3.76(L) 4.30 - 5.80 M/cumm [facility] MCV 89.9 81.3 - 96.4 fL [facility] MCH 30.1 27.1 - 33.3 pg [facility] MCHC 33.4 32.3 - 35.7 g/dL [facility] RDW CV 13.3 11.1 - 14.9 % [facility] RDW SD 43.8 35.7 - 48.1 fL [facility] NRBC abs 0.00 0.00 - 0.01 K/cumm [facility] Blood 05/17/2021 3:[address] DESIGN ENGINEER 05/17/2021 3:[address] DESIGN ENGINEER us Jose Conti MD LAB BLOOD ORDERABLES Final Resul t Performing Organization Address [facility] de Phone Number [facility] [address] [facility] [place] [address] * Phosphorus (05/17/2021 3:[address] DESIGN ENGINEER) Phosphorus, pl 4.4 2.3 - 4.5 mg/dL [facility] Blood 05/17/2021 3:[address] DESIGN ENGINEER 05/17/2021 3:[address] DESIGN ENGINEER Result Yunior Conti MD LAB BLOOD ORDERABLES Final Resul t Performing Organization Address [facility] Phone Number [facility] [address] [place] [address] * Magnesium (05/17/2021 3:[address] DESIGN ENGINEER) Magnesium 1.7 1.4 - 2.5 mg/dL [facility] Blood 05/17/2021 3:[address] DESIGN ENGINEER 05/17/2021 3:[address] DESIGN ENGINEER us oJse Conti MD LAB BLOOD ORDERABLES Final Resul t Performing Organization Address [facility] Phone Number [facility] [address] [facility] [place] [address] * (ABNORMAL) Calcium, ionized (05/17/2021 3:[address] DESIGN ENGINEER) Ca, ionized, bld 4.42(L) 4.60 - 5.20 mg/dL [facility] Ca, ionized, bld, calc 4.44(L) 4.60 - 5.20 mg/dL [facility] Blood 05/17/2021 3:[address] DESIGN ENGINEER 05/17/2021 3:[address] DESIGN ENGINEER us Jose Conti MD LAB BLOOD ORDERABLES Final Resul t [facility] [address] [place] [address] * (ABNORMAL) Comprehensive metabolic panel (05/17/2021 3:[address] DESIGN ENGINEER) Sodium 133(L) 135 - 145 mmol/L [facility] Potassium, pl 2.6(C) 3.3 - 4.9 mmol/L [facility] Comment:Critical Result call ed to and read back by Mani Talbert, DATE: 2021-05-17 04:21:37 BY: Sofía Arevalo Chloride [...] Units/L [facility] Blood 05/17/2021 3:[address] DESIGN ENGINEER 05/17/2021 3:[address] DESIGN ENGINEER Jose Conti MD LAB BLOOD ORDERABLES Final Resul t [facility] [address] [facility] [place] [address] * Critical Care (05/17/2021 3:[address] DESIGN ENGINEER) Narrative Jose Conti MD - 05/17/2021 3:[address] DESIGN ENGINEER Jose Conti MD ? 05/17/2021 ??3:33 AM [...] plan with the ICU team and other medical/program evaluation consultant staff, making frequent assessments and decisions [...] Chest 1 Vw Portable (05/17/2021 2:[address] DESIGN ENGINEER) Anatomical Region Laterality Modality Body, Chest N/A Computed Radiogr aphy 05/17/2021 11:[address] DESIGN ENGINEER Impressions 05/17/2021 11:[address] DESIGN ENGINEER 1. ??Status post median sternotomy. 2. ??Right jugular venous catheter in place. 3. ??Pulmonary vascular congestion. 4. ??Mild infiltrate in the left lower lobe and possible small left pleural effusion. Electronically signed by: Humphrey Mojica M.D. Narrative 05/17/2021 11:[address] DESIGN ENGINEER EXAM: ?? XR CHEST 1 VIEW DATE: [...] ult * POCT glucose (05/17/2021 2:[address] DESIGN ENGINEER) Glucose, POC 139 70 - 199 mg/dL [facility] Blood 05/17/2021 2:[address] DESIGN ENGINEER 05/17/2021 2:[address] DESIGN ENGINEER Rhina Granados MD LAB POCT ORDERABLES - DEVICE Final Result Performing Organization Address [facility] de Phone Number [facility] [place] [address] [place] [address] * (ABNORMAL) Blood gas, arterial (05/17/2021 2:[address] DESIGN ENGINEER) pH, Art 7.50(H) 7.35 - 7.45 [facility] [...] % [facility] Blood 05/17/2021 2:[address] DESIGN ENGINEER 05/17/2021 2:[address] DESIGN ENGINEER Laly Lopes MD LAB BLOOD ORDERABLES Final Result Performing Organization Address [facility] Co de Phone Number [facility] [place] [address] [place] [address] * POCT glucose (05/17/2021 2:[address] DESIGN ENGINEER) Glucose, POC 135 70 - 199 mg/dL [facility] Blood 05/17/2021 2:[address] DESIGN ENGINEER 05/17/2021 2:[address] DESIGN ENGINEER us Rhina Granados MD LAB POCT ORDERABLES - DEVICE Final Result Performing Organization Address City/[facility] Co de Phone Number [facility] [place] [address] [facility] [place] [address] * POCT glucose (05/16/2021 10:[address] DESIGN ENGINEER) Glucose, POC 131 70 - 199 mg/dL [facility] Blood 05/16/2021 10:[address] DESIGN ENGINEER 05/16/2021 10:[address] DESIGN ENGINEER us Rhina Granados MD LAB POCT ORDERABLES - DEVICE Final Result Performing Organization Address [facility] de Phone Number [facility] [address] [address] * POCT glucose (05/16/2021 8:[address] DESIGN ENGINEER) Glucose, POC 142 70 - 199 mg/dL [facility] Blood 05/16/2021 8:[address] DESIGN ENGINEER 05/16/2021 8:[address] DESIGN ENGINEER us Rhina Granados MD LAB POCT ORDERABLES - DEVICE Final Result Performing Organization Address [facility] Co de Phone Number [place] [address] [place] [address] * POCT glucose (05/16/2021 6:[address] DESIGN ENGINEER) Glucose, POC 104 70 - 199 mg/dL [facility] Blood 05/16/2021 6:[address] DESIGN ENGINEER 05/16/2021 6:[address] DESIGN ENGINEER us Rhina Granados MD LAB POCT ORDERABLES - DEVICE Final Result Performing Organization Address [facility] Co de Phone Number [facility] [place] [address] [facility] [place] [address] * POCT glucose (05/16/2021 12:[address] DESIGN ENGINEER) Glucose, POC 114 70 - 199 mg/dL [facility] Blood 05/16/2021 12:[address] DESIGN ENGINEER 05/16/2021 12:[address] DESIGN ENGINEER Rhina Granados MD LAB POCT ORDERABLES - DEVICE Final Result Performing Organization Address [facility]/ZIP Co de Phone Number [facility] [address] [facility] [place] [address] * POCT glucose (05/16/2021 7:[address] DESIGN ENGINEER) Glucose, POC 135 70 - 199 mg/dL [facility] Blood 05/16/2021 7:[address] DESIGN ENGINEER 05/16/2021 7:[address] DESIGN ENGINEER Rhina Granados MD LAB POCT ORDERABLES - DEVICE Final Result Performing Organization Address [facility] Co de Phone Number [facility] [place] [address] [facility] [place] [address] * eGFR (05/16/2021 5:[address] DESIGN ENGINEER) eGFR 105 mL/min/1.7 3 m2 [facility] Comment: Interpretive Data Reference Interval Normal ?>/= [...] last reviewed 2020 Blood 05/16/2021 5:[address] DESIGN ENGINEER 05/16/2021 5:[address] DESIGN ENGINEER us Rhina Granados MD LAB BLOOD ORDERABLES Final [facility]ult [facility] [address] [place] [address] * (ABNORMAL) CBC without differential (05/16/2021 5:[address] DESIGN ENGINEER) WBC 6.2 3.8 - 9.9 K/cumm [facility] Hgb 9.9(L) 13.0 - 17.5 g/dL [facility] Hct 30.8(L) 38.9 - 50.3 % [facility] Plt 241 150 - 400 K/cumm [facility] MPV 11.7 9.1 - 12.3 fL [facility] RBC 3.34(L) 4.30 - 5.80 M/cumm [facility] MCV 92.2 81.3 - 96.4 fL [facility] MCH 29.6 27.1 - 33.3 pg [facility] MCHC 32.1(L) 32.3 - 35.7 g/dL [facility] RDW CV 13.4 11.1 - 14.9 % [facility] RDW SD 45.6 35.7 - 48.1 fL [facility] NRBC abs 0.00 0.00 - 0.01 K/cumm [facility] Blood 05/16/2021 5:[address] DESIGN ENGINEER 05/16/2021 5:[address] DESIGN ENGINEER Silviano Huddleston [employer] LAB BLOOD ORDERABLES Final Result Performing Organization Address [facility]/ZIP Co de Phone Number [facility] [place] [address] [facility] [place] [address] * Magnesium (05/16/2021 5:[address] DESIGN ENGINEER) Pathologist [facility] Magnesium 2.0 1.4 - 2.5 mg/dL [facility] NAMED [facility] Blood 05/16/2021 5:[address] DESIGN ENGINEER 05/16/2021 5:[address] DESIGN ENGINEER Silviano Huddleston [employer] LAB BLOOD ORDERABLES Final Result Performing Organization Address [facility] Co de Phone Number [facility] [place] [address] [facility] [place] [address] * Phosphorus (05/16/2021 5:[address] DESIGN ENGINEER) Pathologist [facility] Phosphorus, pl 3.2 2.3 - 4.5 mg/dL [facility] Blood 05/16/2021 5:[address] DESIGN ENGINEER 05/16/2021 5:[address] DESIGN ENGINEER Silviano Huddleston [employer] LAB BLOOD ORDERABLES Final Result Performing Organization Address [facility] de Phone Number [facility] [address] [facility] [place] [address] * (ABNORMAL) Basic metabolic panel (05/16/2021 5:[address] DESIGN ENGINEER) Sodium 132(L) 135 - 145 mmol/L [facility] Potassium, pl 3.8 3.3 - 4.9 mmol/L [facility] Chloride 101 97 - 110 mmol/L [facility] CO2 20(L) 22 - 32 mmol/L [facility] Anion gap 11 2 - 15 mmol/L [facility] BUN 22 8 - 25 mg/dL [facility] Creatinine 0.68(L) 0.80 - 1.30 mg/dL [facility] Glucose 96 70 - 199 mg/dL [facility] Comment: Interpretive [...] Calcium 8.1(L) 8.5 - 10.3 mg/dL [facility] Blood 05/16/2021 5:[address] DESIGN ENGINEER 05/16/2021 5:[address] DESIGN ENGINEER us Rhina Granados MD LAB BLOOD ORDERABLES Final R esult [facility] [address] [place] [address] * XR Chest 1 View (05/16/2021 5:[address] DESIGN ENGINEER) Anatomical Region Laterality Modality Body, Chest N/A Computed Radiogr aphy 05/16/2021 9:[address] DESIGN ENGINEER Impressions 05/16/2021 9:[address] DESIGN ENGINEER No change from previous. Electronically signed by: Humphrey Mojica M.D. Narrative 05/16/2021 9:[address] DESIGN ENGINEER EXAM: ?? XR CHEST 1 VIEW DATE: [...] previous. Electronically signed by: Humphrey Mojica M.D. Result [facility] Varsha Crowder [employer] IMG XR PROCEDURES Final Re sult * POCT glucose (05/16/2021 2:[address] DESIGN ENGINEER) Glucose, POC 95 70 - 199 mg/dL [facility] Blood 05/16/2021 2:[address] DESIGN ENGINEER 05/16/2021 2:[address] DESIGN ENGINEER Result [facility] Rhina Granados MD LAB POCT ORDERABLES - DEVICE Final Result Performing Organization Address [facility] Co de Phone Number [facility] [address] [place] [address] * POCT glucose (05/15/2021 8:[address] DESIGN ENGINEER) Glucose, POC 177 70 - 199 mg/dL [facility] Blood 05/15/2021 8:[address] DESIGN ENGINEER 05/15/2021 8:[address] DESIGN ENGINEER Result [facility] Rhina Granados MD LAB POCT ORDERABLES - DEVICE Final Result Performing Organization Address [facility] Co de Phone Number [facility] [address] [place] [address] * (ABNORMAL) POCT glucose (05/15/2021 5:[address] DESIGN ENGINEER) Glucose, POC 217(H) 70 - 199 mg/dL [facility] Blood 05/15/2021 5:[address] DESIGN ENGINEER 05/15/2021 5:[address] DESIGN ENGINEER Result [facility] Rhina Granados MD LAB POCT ORDERABLES - DEVICE Final Result Performing Organization Address [facility] Co de Phone Number [facility] [address] [address] [facility] [place] [address] * POCT glucose (05/15/2021 12:[address] DESIGN ENGINEER) Glucose, POC 189 70 - 199 mg/dL [facility] Blood 05/15/2021 12:[address] DESIGN ENGINEER 05/15/2021 12:[address] DESIGN ENGINEER Rhina Granados MD LAB POCT ORDERABLES - DEVICE Final Result Performing Organization Address [facility] de Phone Number [facility] [place] [address] [place] [address] * POCT glucose (05/15/2021 7:[address] DESIGN ENGINEER) Glucose, POC 127 70 - 199 mg/dL [facility] Blood 05/15/2021 7:[address] DESIGN ENGINEER 05/15/2021 7:[address] DESIGN ENGINEER Rhina Granados MD LAB POCT ORDERABLES - DEVICE Final Result Performing Organization Address [facility] de Phone Number [facility] [place] [address] [place] [address] * XR Chest 1 View (05/15/2021 6:[address] DESIGN ENGINEER) Anatomical Region Laterality Modality Body, Chest N/A Computed Radiogr aphy 05/15/2021 9:[address] DESIGN ENGINEER Impressions 05/15/2021 9:[address] DESIGN ENGINEER Borderline cardiomegaly with no failure. Electronically signed by: Elvira Blackman M.D. Narrative 05/15/2021 9:[address] DESIGN ENGINEER EXAMINATION: XR CHEST 1 VIEW HISTORY: The patient is a 60-year-old male who has had prior cardiac surgery. Comparison made with the previous study dated 05/14/2021. TECHNIQUE: AP portable view of the chest. FINDINGS: Borderline cardiomegaly with aortic atherosclerosis. ??No failure. ??No active infiltrate. ??The distal tip of a retracted Guadalupita-Radha catheter is in the proximal superior vena [...] infiltrate. The distal tip of a retracted Guadalupita-Radha catheter is in the proximal superior vena cava. IMPRESSION: Borderline cardiomegaly with no failure. Electronically signed by: Elvira Blackman M.D. us Varsha Crowder [employer] IMG XR PROCEDURES Final Re sult * eGFR (05/15/2021 5:[address] DESIGN ENGINEER) eGFR 103 mL/min/1.7 3 m2 [facility] Comment: Interpretive Data [...] last reviewed 2020 Blood 05/15/2021 5:[address] DESIGN ENGINEER 05/15/2021 5:[address] DESIGN ENGINEER Rhina Granados MD LAB BLOOD ORDERABLES Final R esult Performing Organization Address [facility] Co de Phone Number [facility] [place] [address] [place] [address] * Magnesium (05/15/2021 5:[address] DESIGN ENGINEER) Magnesium 1.7 1.4 - 2.5 mg/dL [facility] NAMED [facility] Blood 05/15/2021 5:[address] DESIGN ENGINEER 05/15/2021 5:[address] DESIGN ENGINEER Silviano Huddleston [employer] LAB BLOOD ORDERABLES Final Result Performing Organization Address [facility] de Phone Number [facility] [place] [address] [place] [address] * Phosphorus (05/15/2021 5:[address] DESIGN ENGINEER) Pathologist [facility] Phosphorus, pl 3.0 2.3 - 4.5 mg/dL [facility] NAMED [facility] Blood 05/15/2021 5:[address] DESIGN ENGINEER 05/15/2021 5:[address] DESIGN ENGINEER Silviano Huddleston [employer] LAB BLOOD ORDERABLES Final Result Performing Organization Address [facility] de Phone Number [facility] [address] [place] [address] * (ABNORMAL) Basic metabolic panel (05/15/2021 5:[address] DESIGN ENGINEER) Sodium 131(L) 135 - 145 mmol/L [facility] Potassium, pl 3.8 3.3 - 4.9 mmol/L [facility] Chloride 98 97 - 110 mmol/L [facility] CO2 21(L) 22 - 32 mmol/L [facility] Anion gap 12 2 - 15 mmol/L [facility] BUN 22 8 - 25 mg/dL [facility] Creatinine 0.70(L) 0.80 - 1.30 mg/dL [facility] Glucose 117 70 - 199 mg/dL [facility] Comment: Interpretive Data Fasting glucose >/= 126 [...] 2017. Calcium 8.3(L) 8.5 - 10.3 mg/dL [facility] Blood 05/15/2021 5:[address] DESIGN ENGINEER 05/15/2021 5:[address] DESIGN ENGINEER us Rhina Granados MD LAB BLOOD ORDERABLES Final R esult [facility] [address] [place] [address] * (ABNORMAL) CBC without differential (05/15/2021 5:[address] DESIGN ENGINEER) Pathologist [facility] WBC 9.4 3.8 - 9.9 K/cumm [facility] Hgb 10.7(L) 13.0 - 17.5 g/dL [facility] Hct 32.2(L) 38.9 - 50.3 % [facility] Plt 270 150 - 400 K/cumm [facility] MPV 11.8 9.1 - 12.3 fL [facility] RBC 3.52(L) 4.30 - 5.80 M/cumm [facility] MCV 91.5 81.3 - 96.4 fL [facility] MCH 30.4 27.1 - 33.3 pg [facility] MCHC 33.2 32.3 - 35.7 g/dL [facility] RDW CV 13.4 11.1 - 14.9 % [facility] RDW SD 45.4 35.7 - 48.1 fL [facility] NRBC abs 0.00 0.00 - 0.01 K/cumm [facility] Blood 05/15/2021 5:[address] DESIGN ENGINEER 05/15/2021 5:[address] DESIGN ENGINEER Rhina Granados MD LAB BLOOD ORDERABLES Final R esult Performing Organization Address [facility] Co de Phone Number [facility] [address] [facility] [place] [address] * POCT glucose (05/15/2021 2:[address] DESIGN ENGINEER) Glucose, POC 102 70 - 199 mg/dL [facility] Blood 05/15/2021 2:[address] DESIGN ENGINEER 05/15/2021 2:[address] DESIGN ENGINEER Rhina Granados MD LAB POCT ORDERABLES - DEVICE Final Result Performing Organization Address [facility] de Phone Number [facility] [address] [facility] [place] [address] * POCT glucose (05/14/2021 10:[address] DESIGN ENGINEER) Glucose, POC 131 70 - 199 mg/dL [facility] Blood 05/14/2021 10:[address] DESIGN ENGINEER 05/14/2021 10:[address] DESIGN ENGINEER Rhina Granados MD LAB POCT ORDERABLES - DEVICE Final Result Performing Organization Address [facility] de Phone Number [facility] NAMED [facility] [address] [facility] [place] [address] * (ABNORMAL) POCT glucose (05/14/2021 5:[address] DESIGN ENGINEER) Glucose, POC 219(H) 70 - 199 mg/dL [facility] Blood 05/14/2021 5:[address] DESIGN ENGINEER 05/14/2021 5:[address] DESIGN ENGINEER Rhina Granados MD LAB POCT ORDERABLES - DEVICE Final Result Performing Organization Address [facility] de Phone Number [facility] [address] [facility] [place] [address] * POCT glucose (05/14/2021 1:[address] DESIGN ENGINEER) Glucose, POC 153 70 - 199 mg/dL [facility] Blood 05/14/2021 1:[address] DESIGN ENGINEER 05/14/2021 1:[address] DESIGN ENGINEER Rhina Granados MD LAB POCT ORDERABLES - DEVICE Final Result Performing Organization Address [facility] de Phone Number [facility] [address] [facility] [place] [address] * POCT glucose (05/14/2021 11:[address] DESIGN ENGINEER) Glucose, POC 150 70 - 199 mg/dL [facility] Blood 05/14/2021 11:[address] DESIGN ENGINEER 05/14/2021 11:[address] DESIGN ENGINEER Rhina Granados MD LAB POCT ORDERABLES - DEVICE Final Result Performing Organization Address [facility] de Phone Number [facility] [address] [facility] [place] [address] * eGFR (05/14/2021 9:[address] DESIGN ENGINEER) eGFR 111 mL/min/1.7 3 m2 [facility] Comment: Interpretive Data Reference Interval Normal ?>/= [...] last reviewed 2020 Blood 05/14/2021 9:[address] DESIGN ENGINEER 05/14/2021 10:[address] DESIGN ENGINEER Rhina Granados MD LAB BLOOD ORDERABLES Final R esult Performing Organization Address City/[facility]/ZIP Co de Phone Number [facility] [address] [place] [address] * Magnesium (05/14/2021 9:[address] DESIGN ENGINEER) Magnesium 1.8 1.4 - 2.5 mg/dL [facility] Blood 05/14/2021 9:[address] DESIGN ENGINEER 05/14/2021 10:[address] DESIGN ENGINEER Silviano Huddleston NP LAB BLOOD ORDERABLES Final Result Performing Organization Address [facility] Co de Phone Number [facility] [address] [place] [address] * Phosphorus (05/14/2021 9:[address] DESIGN ENGINEER) Phosphorus, pl 2.6 2.3 - 4.5 mg/dL [facility] Blood 05/14/2021 9:[address] DESIGN ENGINEER 05/14/2021 10:[address] DESIGN ENGINEER Silviano Huddleston NP LAB BLOOD ORDERABLES Final Result Performing Organization Address [facility] [facility] Co de Phone Number [facility]RIK DON [address] [place] [address] * (ABNORMAL) CBC without differential (05/14/2021 9:[address] DESIGN ENGINEER) WBC 8.8 3.8 - 9.9 K/cumm [facility] Hgb 10.2(L) 13.0 - 17.5 g/dL [facility] Hct 30.2(L) 38.9 - 50.3 % [facility] Plt 271 150 - 400 K/cumm [facility] MPV 12.0 9.1 - 12.3 fL [facility] RBC 3.30(L) 4.30 - 5.80 M/cumm [facility] MCV 91.5 81.3 - 96.4 fL [facility] MCH 30.9 27.1 - 33.3 pg [facility] MCHC 33.8 32.3 - 35.7 g/dL [facility] RDW CV 13.3 11.1 - 14.9 % [facility] RDW SD 44.8 35.7 - 48.1 fL [facility] NRBC abs 0.00 0.00 - 0.01 K/cumm [facility] Blood 05/14/2021 9:[address] DESIGN ENGINEER 05/14/2021 9:[address] DESIGN ENGINEER Rhina Granados MD LAB BLOOD ORDERABLES Final R esult Performing Organization Address City/[facility]/ZIP Co de Phone Number HENRIK DON [address] [place] [address] * (ABNORMAL) Basic metabolic panel (05/14/2021 9:[address] DESIGN ENGINEER) Pathologist [facility] Sodium 129(L) 135 - 145 mmol/L [facility] Potassium, pl 4.0 3.3 - 4.9 mmol/L [facility] Chloride 97 97 - 110 mmol/L [facility] CO2 20(L) 22 - 32 mmol/L [facility] Anion gap 12 2 - 15 mmol/L [facility] BUN 16 8 - 25 mg/dL [facility] Creatinine 0.59(L) 0.80 - 1.30 mg/dL [facility] NAMED [facility] Glucose 148 70 - 199 mg/dL [facility] Comment: Interpretive Data Fasting glucose >/= 126 [...] 2017. Calcium 8.4(L) 8.5 - 10.3 mg/dL [facility] Blood 05/14/2021 9:[address] DESIGN ENGINEER 05/14/2021 10:[address] DESIGN ENGINEER Rhina Granados MD LAB BLOOD ORDERABLES Final R esult Performing Organization Address [facility] Co de Phone Number [facility] [address] [place] [address] * POCT glucose (05/14/2021 9:[address] DESIGN ENGINEER) Glucose, POC 143 70 - 199 mg/dL [facility] Blood 05/14/2021 9:[address] DESIGN ENGINEER 05/14/2021 9:[address] DESIGN ENGINEER Rhina Granados MD LAB POCT ORDERABLES - DEVICE Final Result Performing Organization Address [facility] Co de Phone Number [facility] [address] [place] [address] * POCT glucose (05/14/2021 6:[address] DESIGN ENGINEER) Glucose, POC 149 70 - 199 mg/dL [facility] Blood 05/14/2021 6:[address] DESIGN ENGINEER 05/14/2021 6:[address] DESIGN ENGINEER us Rhina Granados MD LAB POCT ORDERABLES - DEVICE Final Result HENRIK [address] Department [place] [address] * XR Chest 1 View (05/14/2021 6:[address] DESIGN ENGINEER) Anatomical Region Laterality Modality Body, Chest N/A Computed Radiogr aphy 05/14/2021 8:[address] DESIGN ENGINEER Impressions 05/14/2021 8:[address] DESIGN ENGINEER Mild vascular congestion. Electronically signed by: Elvira Blackman M.D. Narrative 05/14/2021 8:[address] DESIGN ENGINEER EXAMINATION: XR CHEST 1 VIEW HISTORY: The patient is a 60-year-old male who has had prior bypass surgery. Comparison made with the previous study dated 05/09/2021. TECHNIQUE: AP portable view of the chest. FINDINGS: Borderline cardiomegaly with aortic atherosclerosis. ??Slight haziness of the vascular markings. ??No focal infiltrate. ??The distal tip of a retracted Guadalupita-Radha catheter is in the superior vena cava. [...] infiltrate. The distal tip of a retracted Guadalupita-Radha catheter is in the superior vena cava. IMPRESSION: Mild vascular congestion. Electronically signed by: Elvira Blackman M.D. us Varsha Crowder [employer] IMG XR PROCEDURES Final Re sult * POCT glucose (05/13/2021 8:[address] DESIGN ENGINEER) Glucose, POC 174 70 - 199 mg/dL [facility] DON Blood 05/13/2021 8:[address] DESIGN ENGINEER 05/13/2021 8:[address] DESIGN ENGINEER Rhina Granados MD LAB POCT ORDERABLES - DEVICE Final Result Performing Organization Address City/[facility] Co de Phone Number HENRIK DON [address] [place] [address] * POCT glucose (05/13/2021 5:[address] DESIGN ENGINEER) Glucose, POC 194 70 - 199 mg/dL [facility] Blood 05/13/2021 5:[address] DESIGN ENGINEER 05/13/2021 5:[address] DESIGN ENGINEER Rhina Granados MD LAB POCT ORDERABLES - DEVICE Final Result Performing Organization Address [facility] Phone Number HENRIK DON [address] [place] [address] * CT Abdomen Pelvis WO Contrast (05/13/2021 2:[address] DESIGN ENGINEER) Anatomical Region Laterality Modality Body N/A Computed Tomogra phy 05/13/2021 2:[address] DESIGN ENGINEER Impressions 05/13/2021 2:[address] DESIGN ENGINEER Hemorrhagic contents within the urinary bladder which also contains a Osorio catheter Electronically signed by: Deandre Lomeli M.D. Narrative 05/13/2021 2:[address] DESIGN ENGINEER EXAMINATION: CT OF THE ABDOMEN AND PELVIS [...] by: Deandre Lomeli M.D. Braulio Ortega MD IM CT PROCEDURES Final Result * (ABNORMAL) POCT glucose (05/13/2021 8:[address] DESIGN ENGINEER) Pathologist [facility] Glucose, POC 210(H) 70 - 199 mg/dL [facility] Blood 05/13/2021 8:[address] DESIGN ENGINEER 05/13/2021 8:[address] DESIGN ENGINEER Rhina Granados MD LAB POCT ORDERABLES - DEVICE Final Result [facility] [address] Department [place] [address] * eGFR (05/13/2021 6:[address] DESIGN ENGINEER) [facility] eGFR 100 mL/min/1.7 3 m2 [facility] Comment: Interpretive Data Reference Interval Normal ?>/= [...] last reviewed 2020 Blood 05/13/2021 6:[address] DESIGN ENGINEER 05/13/2021 6:[address] DESIGN ENGINEER us Rhina Granados MD LAB BLOOD ORDERABLES Final R esult Performing Organization Address [facility] Co de Phone Number HENRIK DON [address] [facility] [place], [place] [id number] * Magnesium (05/13/2021 6:[address] DESIGN ENGINEER) Pathologist [facility] Magnesium 2.1 1.4 - 2.5 mg/dL [facility] Blood 05/13/2021 6:[address] DESIGN ENGINEER 05/13/2021 6:[address] DESIGN ENGINEER Silviano Huddleston [employer] LAB BLOOD ORDERABLES Final Result Performing Organization Address [facility] de Phone Number HENRIK DON [address] [facility] [place] [address] * Phosphorus (05/13/2021 6:[address] DESIGN ENGINEER) Pathologist [facility] Phosphorus, pl 2.7 2.3 - 4.5 mg/dL [facility] NAM[facility] Blood 05/13/2021 6:[address] DESIGN ENGINEER 05/13/2021 6:[address] DESIGN ENGINEER Silviano Huddleston [employer] LAB BLOOD ORDERABLES Final Result Performing Organization Address [facility] de Phone Number HENRIK DON [address] [place] [address] * (ABNORMAL) Basic metabolic panel (05/13/2021 6:[address] DESIGN ENGINEER) Pathologist [facility] Sodium 127(L) 135 - 145 mmol/L [facility] Potassium, pl 3.5 3.3 - 4.9 mmol/L [facility] Chloride 94(L) 97 - 110 mmol/L [facility] CO2 22 22 - 32 mmol/L [facility] Anion gap 11 2 - 15 mmol/L [facility] BUN 27(H) 8 - 25 mg/dL [facility] Creatinine 0.76(L) 0.80 - 1.30 mg/dL [facility] Glucose 249(H) 70 - 199 mg/dL [facility] Comment: Interpretive [...] 2017. Calcium 8.1(L) 8.5 - 10.3 mg/dL [facility] Blood 05/13/2021 6:[address] DESIGN ENGINEER 05/13/2021 6:[address] DESIGN ENGINEER us Rhina Granados MD LAB BLOOD ORDERABLES Final R esult [facility] [address] Department [place] [address] * (ABNORMAL) CBC without differential (05/13/2021 6:[address] DESIGN ENGINEER) WBC 9.8 3.8 - 9.9 K/cumm [facility] Hgb 9.7(L) 13.0 - 17.5 g/dL [facility] NAMED [facility] Hct 29.8(L) 38.9 - 50.3 % [facility] Plt 253 150 - 400 K/cumm [facility] MPV 11.8 9.1 - 12.3 fL [facility] RBC 3.26(L) 4.30 - 5.80 M/cumm [facility] MCV 91.4 81.3 - 96.4 fL [facility] MCH 29.8 27.1 - 33.3 pg [facility] NAMED [facility] MCHC 32.6 32.3 - 35.7 g/dL [facility] NAMED [facility] RDW CV 13.2 11.1 - 14.9 % [facility] RDW SD 43.4 35.7 - 48.1 fL [facility] NRBC abs 0.00 0.00 - 0.01 K/cumm [facility] Blood 05/13/2021 6:[address] DESIGN ENGINEER 05/13/2021 6:[address] DESIGN ENGINEER Rhina Granados MD LAB BLOOD ORDERABLES Final R esult HENRIK [address] [place] [address] * XR Chest 1 View (05/13/2021 6:[address] DESIGN ENGINEER) Anatomical Region Laterality Modality Body, Chest N/A Computed Radiogr aphy 05/13/2021 8:[address] DESIGN ENGINEER Impressions 05/13/2021 8:[address] DESIGN ENGINEER Of failure or pneumothorax. Increasing left effusion. Electronically signed by: Deacon Cummings M.D. Narrative 05/13/2021 8:[address] DESIGN ENGINEER EXAMINATION: XR CHEST 1 VIEW DATE: 05/13/2021 [...] by: Deacon Cummings M.D. us Varsha Crowder [employer] IMG XR PROCEDURES Final Re sult * (ABNORMAL) POCT glucose (05/13/2021 1:[address] DESIGN ENGINEER) Glucose, POC 258(H) 70 - 199 mg/dL [facility]K DON Blood 05/13/2021 1:[address] DESIGN ENGINEER 05/13/2021 1:[address] DESIGN ENGINEER Rhina Granados MD LAB POCT ORDERABLES - DEVICE Final Result Performing Organization Address [facility] Co de Phone Number HENRIK DON [address] [facility] [place], [place] [id number] * POCT glucose (05/12/2021 10:[address] DESIGN ENGINEER) Glucose, POC 188 70 - 199 mg/dL [facility] Blood 05/12/2021 10:[address] DESIGN ENGINEER 05/12/2021 10:[address] DESIGN ENGINEER Rhina Graandos MD LAB POCT ORDERABLES - DEVICE Final Result Performing Organization Address [facility] de Phone Number HENRIK DON [address] [facility] [place] [address] * POCT glucose (05/12/2021 5:[address] DESIGN ENGINEER) Glucose, POC 171 70 - 199 mg/dL [facility] Blood 05/12/2021 5:[address] DESIGN ENGINEER 05/12/2021 5:[address] DESIGN ENGINEER Rhina Granados MD LAB POCT ORDERABLES - DEVICE Final Result Performing Organization Address [facility] de Phone Number HENRIK DON [address] [facility] [place] [address] * (ABNORMAL) POCT glucose (05/12/2021 12:[address] DESIGN ENGINEER) Glucose, POC 233(H) 70 - 199 mg/dL [facility]AM[facility] Blood 05/12/2021 12:[address] DESIGN ENGINEER 05/12/2021 12:[address] DESIGN ENGINEER Rhina Granados MD LAB POCT ORDERABLES - DEVICE Final Result Performing Organization Address [facility] Co de Phone Number HENRIK DON [address] [facility] [place] [address] * (ABNORMAL) Protime-INR (05/12/2021 12:[address] DESIGN ENGINEER) PT 14.0(H) 9.5 - 13.6 sec [facility] INR 1.3(H) 0.9 - 1.2 [facility] Comment: Interpretive data Oral anticoagulant therapeutic ranges: Venous thromboembolism prophylaxis or treatment: 2.0-3.0 CARDIOLOGY Standard range: 2.0-3.0 High-intensity range: 2.5-3.5 Refer to indication-specific guidelines for appropriate target ranges for prosthetic heart valve replacement. Current interpretive data was last revised on 2019. Blood 05/12/2021 12:[address] DESIGN ENGINEER 05/12/2021 12:[address] DESIGN ENGINEER Varsha Crowder LAB BLOOD ORDERABLES Final Result Performing Organization Address [facility] Co de Phone Number [facility] [address] [place] [address] * aPTT (05/12/2021 12:[address] DESIGN ENGINEER) Pathologist [facility] aPTT 29 27 - 37 sec H[facility]RIK Comment: Interpretive Data Therapeutic heparin range: 60.0 - 94.0 seconds. Based on correlation with therapeutic heparin activity range of 0.3-0.7 Units/mL. Current interpretive data was last revised on 2020. Blood 05/12/2021 12:[address] DESIGN ENGINEER 05/12/2021 12:[address] DESIGN ENGINEER Varsha Crowder [employer] LAB BLOOD ORDERABLES Final Result [facility] [address] [facility] [place] [address] * (ABNORMAL) POCT glucose (05/12/2021 8:[address] DESIGN ENGINEER) Pathologist [facility] Glucose, POC 202(H) 70 - 199 mg/dL [facility] Blood 05/12/2021 8:[address] DESIGN ENGINEER 05/12/2021 8:[address] DESIGN ENGINEER Nalini Clayton MD LAB POCT ORDERABLES - DEVICE Fin al Result Performing Organization Address [facility] Co de Phone Number [facility] [address] [facility] [place] [address] * POCT glucose (05/12/2021 7:[address] DESIGN ENGINEER) Glucose, POC 196 70 - 199 mg/dL [facility] Blood 05/12/2021 7:[address] DESIGN ENGINEER 05/12/2021 7:[address] DESIGN ENGINEER Nalini Clayton MD LAB POCT ORDERABLES - DEVICE [facility] al Result Performing Organization Address [facility] Phone Number [facility] NAMED [facility] [address] [place] [address] * eGFR (05/12/2021 6:[address] DESIGN ENGINEER) eGFR 99 mL/min/1.7 3 m2 [facility] Comment: Interpretive Data Reference Interval Normal ?>/= [...] last reviewed 2020 Blood 05/12/2021 6:[address] DESIGN ENGINEER 05/12/2021 6:[address] DESIGN ENGINEER Rhina Granados MD LAB BLOOD ORDERABLES Final R esult Performing Organization Address [facility] Co de Phone Number HENRIK DON [address] [place] [address] * Magnesium (05/12/2021 6:[address] DESIGN ENGINEER) Magnesium 1.9 1.4 - 2.5 mg/dL [facility] Blood 05/12/2021 6:[address] DESIGN ENGINEER 05/12/2021 6:[address] DESIGN ENGINEER Silviano Huddleston NP LAB BLOOD ORDERABLES Final Result Performing Organization Address [facility] de Phone Number HENRIK DON [address] [place] [address] * Phosphorus (05/12/2021 6:[address] DESIGN ENGINEER) Phosphorus, pl 3.6 2.3 - 4.5 mg/dL [facility] Blood 05/12/2021 6:[address] DESIGN ENGINEER 05/12/2021 6:[address] DESIGN ENGINEER Silviano Huddleston [employer] LAB BLOOD ORDERABLES Final Result Performing Organization Address [facility] de Phone Number HENRIK DON [address] [place] [address] * (ABNORMAL) CBC without differential (05/12/2021 6:[address] DESIGN ENGINEER) WBC 13.8(H) 3.8 - 9.9 K/cumm [facility] Hgb 10.7(L) 13.0 - 17.5 g/dL [facility] Hct 32.7(L) 38.9 - 50.3 % [facility] Plt 304 150 - 400 K/cumm [facility] MPV 11.6 9.1 - 12.3 fL [facility] RBC 3.58(L) 4.30 - 5.80 M/cumm [facility] MCV 91.3 81.3 - 96.4 fL [facility] MCH 29.9 27.1 - 33.3 pg [facility] MCHC 32.7 32.3 - 35.7 g/dL [facility] RDW CV 13.4 11.1 - 14.9 % [facility] RDW SD 44.9 35.7 - 48.1 fL [facility] NRBC abs 0.00 0.00 - 0.01 K/cumm [facility] Blood 05/12/2021 6:[address] DESIGN ENGINEER 05/12/2021 6:[address] DESIGN ENGINEER us Rhina Granados MD LAB BLOOD ORDERABLES Final R esult [facility] [address] Department [place] [address] * (ABNORMAL) Basic metabolic panel (05/12/2021 6:[address] DESIGN ENGINEER) Sodium 130(L) 135 - 145 mmol/L [facility] Potassium, pl 3.5 3.3 - 4.9 mmol/L [facility] Chloride 94(L) 97 - 110 mmol/L [facility] CO2 22 22 - 32 mmol/L [facility] Anion gap 14 2 - 15 mmol/L [facility] BUN 26(H) 8 - 25 mg/dL [facility] Creatinine 0.78(L) 0.80 - 1.30 mg/dL [facility] Glucose 163 70 - 199 mg/dL [facility] Comment: Interpretive Data Fasting glucose >/= 126 [...] 2017. Calcium 8.6 8.5 - 10.3 mg/dL [facility] Blood 05/12/2021 6:[address] DESIGN ENGINEER 05/12/2021 6:[address] DESIGN ENGINEER us Rhina Granados MD LAB BLOOD ORDERABLES Final R esult HENRIK [address] Department [place] [address] * XR Chest 1 View (05/12/2021 5:[address] DESIGN ENGINEER) Anatomical Region Laterality Modality Body, Chest N/A Computed Radiogr aphy 05/12/2021 8:[address] DESIGN ENGINEER Impressions 05/12/2021 8:[address] DESIGN ENGINEER Stable cardiomegaly without failure or pneumothorax. Atelectasis left base. Electronically signed by: Deacon Cummings M.D. Narrative 05/12/2021 8:[address] DESIGN ENGINEER EXAMINATION: XR CHEST 1 VIEW DATE: 05/12/2021 [...] by: Deacon Cummings M.D. us Varsha Crowder [employer] IMG XR PROCEDURES Final Re sult * POCT glucose (05/12/2021 1:[address] DESIGN ENGINEER) Glucose, POC 179 70 - 199 mg/dL [facility] Blood 05/12/2021 1:[address] DESIGN ENGINEER 05/12/2021 1:[address] DESIGN ENGINEER us Nalini Clayton MD LAB POCT ORDERABLES - DEVICE Fin al Result Performing Organization Address [facility] de Phone Number [facility] [address] [facility] [place] [address] * POCT glucose (05/11/2021 9:[address] DESIGN ENGINEER) Glucose, POC 128 70 - 199 mg/dL [facility] Blood 05/11/2021 9:[address] DESIGN ENGINEER 05/11/2021 9:[address] DESIGN ENGINEER us Nalini Clayton MD LAB POCT ORDERABLES - DEVICE Fin al Result Performing Organization Address [facility] de Phone Number [facility] [address] [facility] [place] [address] * POCT glucose (05/11/2021 6:[address] DESIGN ENGINEER) Glucose, POC 142 70 - 199 mg/dL [facility] Blood 05/11/2021 6:[address] DESIGN ENGINEER 05/11/2021 6:[address] DESIGN ENGINEER Result Yunior Clayton MD LAB POCT ORDERABLES - DEVICE Fin al Result Performing Organization Address [facility] de Phone Number [facility] [address] [facility] [place] [address] * (ABNORMAL) POCT glucose (05/11/2021 11:[address] DESIGN ENGINEER) Glucose, POC 309(H) 70 - 199 mg/dL [facility] Blood 05/11/2021 11:[address] DESIGN ENGINEER 05/11/2021 11:[address] DESIGN ENGINEER us Nalini Clayton MD LAB POCT ORDERABLES - DEVICE Fin al Result HENRIK DON [address] [place] [address] * POCT glucose (05/11/2021 8:[address] DESIGN ENGINEER) Glucose, POC 172 70 - 199 mg/dL [facility] Blood 05/11/2021 8:[address] DESIGN ENGINEER 05/11/2021 8:[address] DESIGN ENGINEER Nalini Clayton MD LAB POCT ORDERABLES - DEVICE Fin al Result Performing Organization Address [facility] de Phone Number HENRIK DON [address] [place] [address] * XR Chest 1 View - Portable - in AM (05/11/2021 6:[address] DESIGN ENGINEER) Anatomical Region Laterality Modality Body, Chest N/A Computed Radiogr aphy 05/11/2021 9:[address] DESIGN ENGINEER Impressions 05/11/2021 9:[address] DESIGN ENGINEER IMPRESSION: No failure. Electronically signed by: Elvira Blackman M.D. Narrative 05/11/2021 9:[address] DESIGN ENGINEER EXAMINATION: XR CHEST 1 VIEW HISTORY: The patient is a 60-year-old male who has had cardiac surgery. Comparison made with the previous study dated 05/10/2021. TECHNIQUE: AP portable view of the chest. FINDINGS: Lungs clear. ??Heart not enlarged. ??Aortic atherosclerosis. ??No failure. ??The right IJ Guadalupita-Radha catheter has been retracted with its tip [...] Aortic atherosclerosis. No failure. The right IJ Guadalupita-Radha catheter has been retracted with its tip in the distal superior vena cava. IMPRESSION: IMPRESSION: No failure. Electronically signed by: Elvira Blackman M.D. us Rhina Granados MD IMG XR PROCEDURES Final Resu lt * eGFR (05/11/2021 6:[address] DESIGN ENGINEER) eGFR 94 mL/min/1.7 3 m2 [facility] Comment: Interpretive Data Reference Interval Normal [...] last reviewed 2020 Blood 05/11/2021 6:[address] DESIGN ENGINEER 05/11/2021 6:[address] DESIGN ENGINEER us Rhina Granados MD LAB BLOOD ORDERABLES Final R esult [facility] [address] [place] [address] * Magnesium (05/11/2021 6:[address] DESIGN ENGINEER) Magnesium 1.8 1.4 - 2.5 mg/dL [facility] Blood 05/11/2021 6:[address] DESIGN ENGINEER 05/11/2021 6:[address] DESIGN ENGINEER Silviano Huddleston [employer] LAB BLOOD ORDERABLES Final Result [facility] DON [address] [facility] [place] [address] * Phosphorus (05/11/2021 6:[address] DESIGN ENGINEER) Pathologist [facility] Phosphorus, pl 3.5 2.3 - 4.5 mg/dL [facility]AM[facility] Blood 05/11/2021 6:[address] DESIGN ENGINEER 05/11/2021 6:[address] DESIGN ENGINEER Silviano Huddleston [employer] LAB BLOOD ORDERABLES Final Result Performing Organization Address City/[facility] Co de Phone Number HENRIK DON [address] [facility] [place] [address] * (ABNORMAL) CBC without differential (05/11/2021 6:[address] DESIGN ENGINEER) WBC 17.3(H) 3.8 - 9.9 K/cumm [facility] Hgb 11.1(L) 13.0 - 17.5 g/dL [facility] Hct 33.6(L) 38.9 - 50.3 % [facility] Plt 330 150 - 400 K[facility]cumm [facility] MPV 11.4 9.1 - 12.3 fL [facility] [...] NRBC abs 0.00 0.00 - 0.01 K/cumm [facility] Blood 05/11/2021 6:[address] DESIGN ENGINEER 05/11/2021 6:[address] DESIGN ENGINEER Rhina Granados MD LAB BLOOD ORDERABLES Final R esult Performing Organization Address City/[facility] Co de Phone Number [facility]RIK DON [address] [place] [address] * (ABNORMAL) Basic metabolic panel (05/11/2021 6:[address] DESIGN ENGINEER) Pathologist [facility] Sodium 132(L) 135 - 145 mmol/L [facility] Potassium, pl 3.5 3.3 - 4.9 mmol/L [facility] Chloride 95(L) 97 - 110 mmol/L [facility] CO2 23 22 - 32 mmol/L [facility] Anion gap 14 2 - 15 mmol/L [facility] BUN 24 8 - 25 mg/dL [facility] Creatinine 0.89 0.80 - 1.30 mg/dL [facility] Glucose 155 70 - 199 mg/dL [facility] Comment: Interpretive Data Fasting glucose >/= 126 [...] 2017. Calcium 8.8 8.5 - 10.3 mg/dL [facility] Blood 05/11/2021 6:[address] DESIGN ENGINEER 05/11/2021 6:[address] DESIGN ENGINEER Rhina Granados MD LAB BLOOD ORDERABLES Final R esult Performing Organization Address [facility] Co de Phone Number HENRIK DON [address] [place] [address] * POCT glucose (05/11/2021 5:[address] DESIGN ENGINEER) Glucose, POC 148 70 - 199 mg/dL [facility] Blood 05/11/2021 5:[address] DESIGN ENGINEER 05/11/2021 5:[address] DESIGN ENGINEER Result Yunior Clayton MD LAB POCT ORDERABLES - DEVICE Fin al Result Performing Organization Address [facility] Phone Number [facility] [address] [facility] [place] [address] * (ABNORMAL) POCT glucose (05/11/2021 1:[address] DESIGN ENGINEER) Glucose, POC 234(H) 70 - 199 mg/dL [facility] Blood 05/11/2021 1:[address] DESIGN ENGINEER 05/11/2021 1:[address] DESIGN ENGINEER Result Yunior Clayton MD LAB POCT ORDERABLES - DEVICE Fin al Result Performing Organization Address [facility] Phone Number [facility] [address] [facility] [place] [address] * (ABNORMAL) POCT glucose (05/10/2021 9:[address] DESIGN ENGINEER) Glucose, POC 231(H) 70 - 199 mg/dL [facility] Blood 05/10/2021 9:[address] DESIGN ENGINEER 05/10/2021 9:[address] DESIGN ENGINEER Result Yunior Clayton MD LAB POCT ORDERABLES - DEVICE Fin al Result Performing Organization Address [facility] de Phone Number [facility] [address] [facility] [place] [address] * (ABNORMAL) POCT glucose (05/10/2021 4:[address] DESIGN ENGINEER) Glucose, POC 209(H) 70 - 199 mg/dL [facility] Blood 05/10/2021 4:[address] DESIGN ENGINEER 05/10/2021 4:[address] DESIGN ENGINEER Result Yunior Clayton MD LAB POCT ORDERABLES - DEVICE Fin al Result Performing Organization Address [facility] de Phone Number HENRIK DON [address] [facility] [place], [place] [id number] * (ABNORMAL) POCT glucose (05/10/2021 12:[address] DESIGN ENGINEER) Glucose, POC 207(H) 70 - 199 mg/dL [facility] Blood 05/10/2021 12:[address] DESIGN ENGINEER 05/10/2021 12:[address] DESIGN ENGINEER us Nalini Clayton MD LAB POCT ORDERABLES - DEVICE Fin al Result Performing Organization Address [facility] de Phone Number HENRIK DON [address] [facility] [place] [address] * (ABNORMAL) POCT glucose (05/10/2021 7:[address] DESIGN ENGINEER) Glucose, POC 209(H) 70 - 199 mg/dL [facility] Blood 05/10/2021 7:[address] DESIGN ENGINEER 05/10/2021 7:[address] DESIGN ENGINEER us Nalini Clayton MD LAB POCT ORDERABLES - DEVICE Fin al Result Performing Organization Address [facility] de Phone Number HENRIK DON [address] [facility] [place] [address] * XR Chest 1 View - Portable - in AM (05/10/2021 6:[address] DESIGN ENGINEER) Anatomical Region Laterality Modality Body, Chest N/A Computed Radiogr aphy 05/10/2021 8:[address] DESIGN ENGINEER Impressions 05/10/2021 8:[address] DESIGN ENGINEER Decreasing failure, atelectasis and left effusion. ?? Electronically signed by: Deandre Lomeli M.D. Narrative 05/10/2021 8:[address] DESIGN ENGINEER EXAMINATION: XR CHEST 1 VIEW DATE: 05/10/2021 2:40 AM COMPARISON: 05/09/2021 HISTORY: 60-year-old man cardiac surgery follow-up FINDINGS:Compared with study the previous day, significant improvement. There is cardiomegaly with postsurgical changes with continued and decreasing failure. Bibasilar atelectasis with left pleural fluid decreasing. No pneumothorax. Guadalupita-Radha catheter remains in place Procedure Note Deandre Lomeli MD - 05/10/2021 EXAMINATION: XR CHEST 1 VIEW DATE: 05/10/2021 2:40 AM COMPARISON: 05/09/2021 HISTORY: 60-year-old man cardiac surgery follow-up FINDINGS:Compared with study the previous day, significant improvement. There is cardiomegaly with postsurgical changes with continued and decreasing failure. Bibasilar atelectasis with left pleural fluid decreasing. No pneumothorax. Guadalupita-Radha catheter remains in place IMPRESSION: Decreasing failure, atelectasis and left effusion. Electronically signed by: Deandre Lomeli M.D. Rhina Granados MD IMG XR PROCEDURES Final Resu lt * POCT glucose (05/10/2021 5:[address] DESIGN ENGINEER) Glucose, POC 188 70 - 199 mg/dL [facility] Blood 05/10/2021 5:[address] DESIGN ENGINEER 05/10/2021 5:[address] DESIGN ENGINEER us Nalini Clayton MD LAB POCT ORDERABLES - DEVICE Fin al Result [facility] [address] [facility] [place] [address] * eGFR (05/10/2021 5:[address] DESIGN ENGINEER) eGFR 92 mL/min/1.7 3 m2 [facility] Comment: Interpretive Data Reference Interval Normal ?>/= [...] last reviewed 2020 Blood 05/10/2021 5:[address] DESIGN ENGINEER 05/10/2021 5:[address] DESIGN ENGINEER us Rhina Granados MD LAB BLOOD ORDERABLES Final R esult Performing Organization Address [facility] Co de Phone Number HENRIK [address] [place] [address] * Magnesium (05/10/2021 5:[address] DESIGN ENGINEER) Pathologist [facility] Magnesium 1.8 1.4 - 2.5 mg/dL [facility] Blood 05/10/2021 5:[address] DESIGN ENGINEER 05/10/2021 5:[address] DESIGN ENGINEER us Silviano Huddleston NP LAB BLOOD ORDERABLES Final Result Performing Organization Address [facility] de Phone Number [facility] [address] [place] [address] * Phosphorus (05/10/2021 5:[address] DESIGN ENGINEER) Phosphorus, pl 3.9 2.3 - 4.5 mg/dL [facility] Blood 05/10/2021 5:[address] DESIGN ENGINEER 05/10/2021 5:[address] DESIGN ENGINEER us Silviano Huddlesotn [employer] LAB BLOOD ORDERABLES Final Result Performing Organization Address City/[facility]/ZIP Co de Phone Number HENRIK DON [address] [place] [address] * (ABNORMAL) CBC without differential (05/10/2021 5:[address] DESIGN ENGINEER) WBC 21.2(H) 3.8 - 9.9 K/cumm [facility] Hgb 12.4(L) 13.0 - 17.5 g/dL [facility] Hct 37.7(L) 38.9 - 50.3 % [facility] Plt 344 150 - 400 K/cumm [facility] MPV 11.4 9.1 - 12.3 fL [facility] RBC 4.19(L) 4.30 - 5.80 M/cumm [facility] MCV 90.0 81.3 - 96.4 fL [facility] MCH 29.6 27.1 - 33.3 pg [facility] MCHC 32.9 32.3 - 35.7 g/dL [facility] RDW CV 13.5 11.1 - 14.9 % [facility] RDW SD 44.3 35.7 - 48.1 fL [facility] NRBC abs 0.00 0.00 - 0.01 K/cumm [facility] Blood 05/10/2021 5:[address] DESIGN ENGINEER 05/10/2021 6:[address] DESIGN ENGINEER us Rhina Granados MD LAB BLOOD ORDERABLES Final R esult [place] [address] [place] [address] * (ABNORMAL) Basic metabolic panel (05/10/2021 5:[address] DESIGN ENGINEER) Pathologist [facility] Sodium 129(L) 135 - 145 mmol/L [facility] Potassium, pl 3.6 3.3 - 4.9 mmol/L [facility] Chloride 90(L) 97 - 110 mmol/L [facility] CO2 25 22 - 32 mmol/L [facility] Anion gap 14 2 - 15 mmol/L [facility] BUN 23 8 - 25 mg/dL [facility] Creatinine 0.91 0.80 - 1.30 mg/dL [facility] Glucose 187 70 - 199 mg/dL [facility] Comment: Interpretive Data Fasting glucose >/= 126 [...] 2017. Calcium 9.4 8.5 - 10.3 mg/dL [facility] Blood 05/10/2021 5:[address] DESIGN ENGINEER 05/10/2021 5:[address] DESIGN ENGINEER Rhina Granados MD LAB BLOOD ORDERABLES Final R esult Performing Organization Address [facility] Co de Phone Number [facility] [address] [place], [place] [id number] * (ABNORMAL) POCT glucose (05/10/2021 1:[address] DESIGN ENGINEER) Glucose, POC 216(H) 70 - 199 mg/dL [facility] Blood 05/10/2021 1:[address] DESIGN ENGINEER 05/10/2021 1:[address] DESIGN ENGINEER us Nalini Clayton MD LAB POCT ORDERABLES - DEVICE Fin al Result Performing Organization Address [facility] Co de Phone Number [facility] [address] Department of [place], [place] [id number] * (ABNORMAL) POCT glucose (05/09/2021 10:[address] DESIGN ENGINEER) Glucose, POC 257(H) 70 - 199 mg/dL [facility] Blood 05/09/2021 10:[address] DESIGN ENGINEER 05/09/2021 10:[address] DESIGN ENGINEER us Nalini Clayton MD LAB POCT ORDERABLES - DEVICE Fin al Result Performing Organization Address [facility] Co de Phone Number HENRIK DON [address] [facility] [place] [address] * POCT glucose (05/09/2021 6:[address] DESIGN ENGINEER) Glucose, POC 192 70 - 199 mg/dL [facility] Blood 05/09/2021 6:[address] DESIGN ENGINEER 05/09/2021 6:[address] DESIGN ENGINEER us Nalini Clayton MD LAB POCT ORDERABLES - DEVICE Fin al Result Performing Organization Address [facility] Co de Phone Number HENRIK DON [address] [facility] [place] [address] * (ABNORMAL) POCT glucose (05/09/2021 11:[address] DESIGN ENGINEER) Glucose, POC 274(H) 70 - 199 mg/dL [facility] Blood 05/09/2021 11:[address] DESIGN ENGINEER 05/09/2021 11:[address] DESIGN ENGINEER us Nalini Clayton MD LAB POCT ORDERABLES - DEVICE Fin al Result Performing Organization Address [facility] Co de Phone Number SHARIFAMASON DON [address] [place] [address] * POCT glucose (05/09/2021 7:[address] DESIGN ENGINEER) Glucose, POC 162 70 - 199 mg/dL [facility] Blood 05/09/2021 7:[address] DESIGN ENGINEER 05/09/2021 7:[address] DESIGN ENGINEER us Nalini Clayton MD LAB POCT ORDERABLES - DEVICE Fin al Result Performing Organization Address [facility] Co de Phone Number HENRIK [address] Department [place] [address] * XR Chest 1 View - Portable - in AM (05/09/2021 6:[address] DESIGN ENGINEER) Anatomical Region Laterality Modality Body, Chest N/A Computed Radiogr aphy 05/09/2021 3:[address] DESIGN ENGINEER Impressions 05/09/2021 3:[address] DESIGN ENGINEER Decreasing failure, atelectasis and left effusion. ?? Electronically signed by: Deandre Lomeli M.D. Narrative 05/09/2021 3:[address] DESIGN ENGINEER EXAMINATION: XR CHEST 1 VIEW DATE: 05/09/2021 4:10 AM HISTORY: 60-year-old man cardiac surgery follow-up FINDINGS:Compared with study the previous day, significant improvement. There is cardiomegaly with postsurgical changes with continued but decreasing failure. Bibasilar atelectasis with left pleural fluid decreasing. No pneumothorax. Guadalupita-Radha catheter remains in place Procedure Note Deandre Lomeli MD - 05/09/2021 EXAMINATION: XR CHEST 1 VIEW DATE: 05/09/2021 4:10 AM HISTORY: 60-year-old man cardiac surgery follow-up FINDINGS:Compared with study the previous day, significant improvement. There is cardiomegaly with postsurgical changes with continued but decreasing failure. Bibasilar atelectasis with left pleural fluid decreasing. No pneumothorax. Guadalupita-Radha catheter remains in place IMPRESSION: Decreasing failure, atelectasis and left effusion. Electronically signed by: Deandre Lomeli M.D. Rhina Granados MD IMG XR PROCEDURES Final Resu lt * eGFR (05/09/2021 6:[address] DESIGN ENGINEER) Pathologist [facility] eGFR 99 mL/min/1.7 3 m2 HENRIK DON [...] last reviewed 2020 Blood 05/09/2021 6:[address] DESIGN ENGINEER 05/09/2021 6:[address] DESIGN ENGINEER us Rhina Granados MD LAB BLOOD ORDERABLES Final R esult Performing Organization Address City/[facility] Co de Phone Number HENRIK [address] [place] [address] * Magnesium (05/09/2021 6:[address] DESIGN ENGINEER) Magnesium 2.0 1.4 - 2.5 mg/dL [facility] Blood 05/09/2021 6:[address] DESIGN ENGINEER 05/09/2021 6:[address] DESIGN ENGINEER us Silviano Huddleston NP LAB BLOOD ORDERABLES Final Result Performing Organization Address [facility] Co de Phone Number SHARIFAMASON [address] [place] [address] * Phosphorus (05/09/2021 6:[address] DESIGN ENGINEER) Phosphorus, pl 3.4 2.3 - 4.5 mg/dL [facility] Blood 05/09/2021 6:[address] DESIGN ENGINEER 05/09/2021 6:[address] DESIGN ENGINEER us Silviano Huddleston [employer] LAB BLOOD ORDERABLES Final Result Performing Organization Address City/[facility]/ZIP Co de Phone Number HENRIK DON [address] [place] [address] * (ABNORMAL) CBC without differential (05/09/2021 6:[address] DESIGN ENGINEER) WBC 16.0(H) 3.8 - 9.9 K/cumm [facility] [...] K/cumm [facility] Blood 05/09/2021 6:[address] DESIGN ENGINEER 05/09/2021 6:[address] DESIGN ENGINEER Rhina Granados MD LAB BLOOD ORDERABLES Final R esult Performing Organization Address City/[facility]/ZIP Co de Phone Number HENRIK DON [address] [place] [address] * (ABNORMAL) Basic metabolic panel (05/09/2021 6:[address] DESIGN ENGINEER) Sodium 131(L) 135 - 145 mmol/L [facility] Potassium, pl 3.7 3.3 - 4.9 mmol/L [facility] Chloride 92(L) 97 - 110 mmol/L [facility] CO2 26 22 - 32 mmol/L [facility] Anion gap 13 2 - 15 mmol/L [facility] BUN 17 8 - 25 mg/dL [facility] Creatinine 0.78(L) 0.80 - 1.30 mg/dL [facility] Glucose 174 70 - 199 mg/dL [facility] Comment: Interpretive Data Fasting glucose >/= 126 [...] 2017. Calcium 9.4 8.5 - 10.3 mg/dL [facility] Blood 05/09/2021 6:[address] DESIGN ENGINEER 05/09/2021 6:[address] DESIGN ENGINEER us Rhina Granados MD LAB BLOOD ORDERABLES Final R esult Performing Organization Address [facility] Co de Phone Number [facility] [address] [employer] [place], [place] [id number] * POCT glucose (05/09/2021 3:[address] DESIGN ENGINEER) Glucose, POC 187 70 - 199 mg/dL [facility] Blood 05/09/2021 3:[address] DESIGN ENGINEER 05/09/2021 3:[address] DESIGN ENGINEER us Nalini Clayton MD LAB POCT ORDERABLES - DEVICE Fin al Result Performing Organization Address [facility] Co de Phone Number [facility] [address] Department of [place], [place] [id number] * (ABNORMAL) POCT glucose (05/09/2021 12:[address] DESIGN ENGINEER) Glucose, POC 202(H) 70 - 199 mg/dL [facility] Blood 05/09/2021 12:[address] DESIGN ENGINEER 05/09/2021 12:[address] DESIGN ENGINEER us Nalini Clayton MD LAB POCT ORDERABLES - DEVICE Fin al Result Performing Organization Address [facility] Co de Phone Number HENRIK DON [address] [facility] [place] [address] * (ABNORMAL) POCT glucose (05/08/2021 10:[address] DESIGN ENGINEER) Glucose, POC 210(H) 70 - 199 mg/dL [facility] Blood 05/08/2021 10:[address] DESIGN ENGINEER 05/08/2021 10:[address] DESIGN ENGINEER us Nalini Clayton MD LAB POCT ORDERABLES - DEVICE Fin al Result Performing Organization Address [facility] de Phone Number [facility]AFORM[facility]LY NAMED [facility] [address] [facility] [place] [address] * (ABNORMAL) POCT glucose (05/08/2021 5:[address] DESIGN ENGINEER) Glucose, POC 248(H) 70 - 199 mg/dL [facility] Blood 05/08/2021 5:[address] DESIGN ENGINEER 05/08/2021 5:[address] DESIGN ENGINEER Result Yunior Clayton MD LAB POCT ORDERABLES - DEVICE Fin al Result Performing Organization Address [facility] Co de Phone Number [facility] NAMED [facility] [address] [place] [address] * (ABNORMAL) POCT glucose (05/08/2021 12:[address] DESIGN ENGINEER) Glucose, POC 223(H) 70 - 199 mg/dL [facility] Blood 05/08/2021 12:[address] DESIGN ENGINEER 05/08/2021 12:[address] DESIGN ENGINEER us Nalini Clayton MD LAB POCT ORDERABLES - DEVICE Fin al Result Performing Organization Address [facility]/ZIP Co de Phone Number HENRIK DON [address] [place] [address] * POCT glucose (05/08/2021 7:[address] DESIGN ENGINEER) Glucose, POC 184 70 - 199 mg/dL [facility] Blood 05/08/2021 7:[address] DESIGN ENGINEER 05/08/2021 7:[address] DESIGN ENGINEER us Nalini Clayton MD LAB POCT ORDERABLES - DEVICE Fin al Result Performing Organization Address [facility] de Phone Number SH[facility]IFAFORM[facility]LY NAMED [facility] [address] [place] [address] * eGFR (05/08/2021 5:[address] DESIGN ENGINEER) Pathologist [facility] eGFR 111 mL/min/1.7 3 m2 [facility] Comment: Interpretive Data Reference Interval Normal ?>/= [...] last reviewed 2020 Blood 05/08/2021 5:[address] DESIGN ENGINEER 05/08/2021 6:[address] DESIGN ENGINEER Rhina Granados MD LAB BLOOD ORDERABLES Final R esult Performing Organization Address City/[facility] Co de Phone Number HENRIK DON [address] [facility] [place] [address] * Magnesium (05/08/2021 5:[address] DESIGN ENGINEER) Magnesium 1.9 1.4 - 2.5 mg/dL [facility] Blood 05/08/2021 5:[address] DESIGN ENGINEER 05/08/2021 6:[address] DESIGN ENGINEER Silviano Huddleston [employer] LAB BLOOD ORDERABLES Final Result Performing Organization Address [facility] de Phone Number HENRIK DON [address] [place] [address] * Phosphorus (05/08/2021 5:[address] DESIGN ENGINEER) Phosphorus, pl 3.3 2.3 - 4.5 mg/dL [facility] Blood 05/08/2021 5:[address] DESIGN ENGINEER 05/08/2021 6:[address] DESIGN ENGINEER Silviano Huddleston [employer] LAB BLOOD ORDERABLES Final Result Performing Organization Address [facility] de Phone Number HENRIK DON [address] [place] [address] * (ABNORMAL) CBC without differential (05/08/2021 5:[address] DESIGN ENGINEER) WBC 16.2(H) 3.8 - 9.9 K/cumm [facility] Hgb 10.5(L) 13.0 - 17.5 g/dL [facility] Hct 31.0(L) 38.9 - 50.3 % [facility] Plt 247 150 - 400 K/cumm [facility] MPV 11.3 9.1 - 12.3 fL [facility] RBC 3.46(L) 4.30 - 5.80 M/cumm [facility] MCV 89.6 81.3 - 96.4 fL [facility] MCH 30.3 27.1 - 33.3 pg [facility] MCHC 33.9 32.3 - 35.7 g/dL [facility] RDW CV 14.0 11.1 - 14.9 % [facility] RDW SD 45.7 35.7 - 48.1 fL [facility] NRBC abs 0.00 0.00 - 0.01 K/cumm [facility] Blood 05/08/2021 5:[address] DESIGN ENGINEER 05/08/2021 6:[address] DESIGN ENGINEER us Rhina Granados MD LAB BLOOD ORDERABLES Final R esult [facility] [address] [place] [address] * (ABNORMAL) Basic metabolic panel (05/08/2021 5:[address] DESIGN ENGINEER) Sodium 131(L) 135 - 145 mmol/L [facility] Potassium, pl 3.2(L) 3.3 - 4.9 mmol/L [facility] Chloride 94(L) 97 - 110 mmol/L [facility] CO2 25 22 - 32 mmol/L [facility] Anion gap 12 2 - 15 mmol/L [facility] BUN 13 8 - 25 mg/dL [facility] Creatinine 0.59(L) 0.80 - 1.30 mg/dL [facility] Glucose 191 70 - 199 mg/dL [facility] Comment: Interpretive Data Fasting glucose [...] 8.5 - 10.3 mg/dL [facility] Blood 05/08/2021 5:[address] DESIGN ENGINEER 05/08/2021 6:[address] DESIGN ENGINEER Rhina Granados MD LAB BLOOD ORDERABLES Final R esult HENRIK DON [address] [facility] [place] [address] * XR Chest 1 View - Portable - in AM (05/08/2021 5:[address] DESIGN ENGINEER) Anatomical Region Laterality Modality Body, Chest N/A Computed Radiogr aphy 05/08/2021 8:[address] DESIGN ENGINEER Impressions 05/08/2021 8:[address] DESIGN ENGINEER Decreasing failure. No pneumothorax. Electronically signed by: Deacon Cummings M.D. Narrative 05/08/2021 8:[address] DESIGN ENGINEER EXAMINATION: XR CHEST 1 VIEW DATE: 05/08/2021 4:15 AM HISTORY: 60-year-old man cardiac surgery follow-up FINDINGS:Compared with study the previous day, significant improvement. There is cardiomegaly with postsurgical changes with continued but decreasing failure. Bibasilar atelectasis with left pleural fluid. No pneumothorax. Guadalupita-Radha catheter remains in place Procedure Note Deacon Cummings MD - 05/08/2021 EXAMINATION: XR CHEST 1 VIEW DATE: 05/08/2021 4:15 AM HISTORY: 60-year-old man cardiac surgery follow-up FINDINGS:Compared with study the previous day, significant improvement. There is cardiomegaly with postsurgical changes with continued but decreasing failure. Bibasilar atelectasis with left pleural fluid. No pneumothorax. Guadalupita-Radha catheter remains in place IMPRESSION: Decreasing failure. No pneumothorax. Electronically signed by: Deacon Cummings M.D. Rhina Granados MD IMG XR PROCEDURES Final Resu lt * POCT glucose (05/08/2021 4:[address] DESIGN ENGINEER) Glucose, POC 152 70 - 199 mg/dL [facility] Blood 05/08/2021 4:[address] DESIGN ENGINEER 05/08/2021 4:[address] DESIGN ENGINEER us Nalini Clayton MD LAB POCT ORDERABLES - DEVICE Fin al Result Performing Organization Address [facility] de Phone Number HENRIK DON [address] [facility] [place] [address] * POCT glucose (05/08/2021 12:[address] DESIGN ENGINEER) Glucose, POC 158 70 - 199 mg/dL [facility] Blood 05/08/2021 12:[address] DESIGN ENGINEER 05/08/2021 12:[address] DESIGN ENGINEER us Nalini Clayton MD LAB POCT ORDERABLES - DEVICE Fin al Result Performing Organization Address [facility] de Phone Number HENRIK [address] [place] [address] * (ABNORMAL) POCT glucose (05/07/2021 7:[address] DESIGN ENGINEER) Glucose, POC 214(H) 70 - 199 mg/dL [facility] Blood 05/07/2021 7:[address] DESIGN ENGINEER 05/07/2021 7:[address] DESIGN ENGINEER Result Yunior Clayton MD LAB POCT ORDERABLES - DEVICE Fin al Result Performing Organization Address [facility] de Phone Number HENRIK [address] [place] [address] * (ABNORMAL) POCT glucose (05/07/2021 3:[address] DESIGN ENGINEER) Glucose, POC 204(H) 70 - 199 mg/dL [facility] Blood 05/07/2021 3:[address] DESIGN ENGINEER 05/07/2021 3:[address] DESIGN ENGINEER Result Yunior Clayton MD LAB POCT ORDERABLES - DEVICE Fin al Result Performing Organization Address [facility]/ZIP Co de Phone Number HENRIK DON [address] [place] [address] * Transfuse RBC (05/07/2021 3:[address] DESIGN ENGINEER) Blood specimen (specimen) us Rhina Granados MD BLOOD TRANSFUSION ORDERABLES Final Result Performing Organization Address [facility] de Phone Number HENRIK DON [address] [place] [address] * Transfuse RBC: 1 Units (05/07/2021 3:[address] DESIGN ENGINEER) Blood specimen (specimen) us Rhina Granados MD BLOOD TRANSFUSION ORDERABLES Final Result * Critical Care (05/07/2021 3:[address] DESIGN ENGINEER) Narrative Domenica Rod MD - 05/07/2021 3:[address] DESIGN ENGINEER Domenica Rod MD ? 05/07/2021 ??3:38 PM Critical Care Performed by: Domenica Rdo MD Authorized by: Domenica Rod MD CRITICAL [...] plan with the ICU team and other medical/program evaluation consultant staff, making frequent assessments and decisions [...] LTD DOPPLER/CF WO CONTRAST (05/07/2021 12:[address] DESIGN ENGINEER) Anatomical Region Laterality Modality Ultrasound 05/07/2021 12:[address] DESIGN ENGINEER Narrative 05/07/2021 12:[address] [place] [address] Limited Echocardiogram Report Patient Name: DEEPAK ALVARADO : 1960 Study Date: 05/07/2021 12:16:52 PM Gender: M Tech: Location: [id number] Ref.Provider: RHINA GRANADOS Height(Cm): 175 BSA: 2.1 [...] tamponade. Electronically Signed By: Gianni Francois MD, [facility] 2021-05-07 12:54:09 ROAD DESIGN ENGINEER Procedure Note Gianni Francois MD - 05/07/2021 [place] [address] Limited Echocardiogram Report Patient Name: DEEPAK ALVARADOPatient ID: [id number] : [id number] Date: 05/07/2021 12:16:52 PM Gender: MAccession #: [id number] Tech: SRLocation: [id number] Ref.Provider: Arielle GRANADOSight(Cm): 175 BSA: 2.1Weight(Kg): 91 [...] tamponade. Electronically Signed By: Gianni Francois MD, [facility] 2021-05-07 12:54:09 ROAD DESIGN ENGINEER Rhina Granados MD CV ECHO PROCEDURES Final Res ult * POCT glucose (05/07/2021 12:[address] DESIGN ENGINEER) Glucose, POC 181 70 - 199 mg/dL [facility] Blood 05/07/2021 12:[address] DESIGN ENGINEER 05/07/2021 12:[address] DESIGN ENGINEER Nalini Clayton MD LAB POCT ORDERABLES - DEVICE Fin al Result Performing Organization Address City/[facility]/ZIP Co de Phone Number HENRIK DON [address] [facility] [place] [address] * Type and screen (05/07/2021 10:[address] DESIGN ENGINEER) ABO Rh A Positive [facility] Shelby, indirect Negative [facility] Blood 05/07/2021 10:[address] DESIGN ENGINEER 05/07/2021 11:[address] DESIGN ENGINEER Narrative [facility] - 05/07/2021 11:[address] DESIGN ENGINEER Has the patient had Daratumumab or Isatuximab in the past 6 months?->Unknown us Rhina Granados MD LAB BLOOD BANK TEST ORDERABL ES Final Result Performing Organization Address [facility] Co de Phone Number HENRIK [address] [address] * POCT glucose (05/07/2021 8:[address] DESIGN ENGINEER) Glucose, POC 153 70 - 199 mg/dL [facility] Blood 05/07/2021 8:[address] DESIGN ENGINEER 05/07/2021 8:[address] DESIGN ENGINEER Nalini Clayton MD LAB POCT ORDERABLES - DEVICE Fin al Result Performing Organization Address City/[facility]/ZIP Co de Phone Number HENRIK DON [address] [address] * Prepare RBC: 1 Units (05/07/2021 8:[address] DESIGN ENGINEER) Product code [id number] HENRIK Unit Number [id number] HENRIK Product Blood Type APOS HENRIK Dispense Status PRESUMED TRANSFUSED HENRIK DON Blood 05/07/2021 8:[address] DESIGN ENGINEER Narrative [facility] - 05/07/2021 10:[address] DESIGN ENGINEER Are special requirements needed? (all products are leukoreduced)->No Date required:-[id number] LRRBC # of [id number] Reasons:-Active bleeding, Hgb <8 g/dL} Rhina Granados MD BLOOD BANK PRODUCT ORDERABLE S Final Result Performing Organization Address [facility] Co de Phone Number HENRIK DON [address] [place] [address] * Oxyhemoglobin, central venous (05/07/2021 6:[address] DESIGN ENGINEER) Oxyhemoglobin, CV 78.5 % HENRIK Comment: Interpretive Data No reference range established. Current interpretive data was last revised 2019. Blood 05/07/2021 6:[address] DESIGN ENGINEER 05/07/2021 6:[address] DESIGN ENGINEER Rhina Granados MD LAB BLOOD ORDERABLES Final R esult Performing Organization Address City/[facility]/ZIP Co de Phone Number HENRIK DON [address] [place] [address] * XR Chest 1 View - Portable - in AM (05/07/2021 5:[address] DESIGN ENGINEER) Anatomical Region Laterality Modality Body, Chest N/A Computed Radiogr aphy 05/07/2021 8:[address] DESIGN ENGINEER Impressions 05/07/2021 8:[address] DESIGN ENGINEER Persistent prominent interstitial lung disease with failure. Electronically signed by: Deacon Cummings M.D. Narrative 05/07/2021 8:[address] DESIGN ENGINEER EXAMINATION: XR CHEST 1 VIEW DATE: 05/07/2021 3:55 AM HISTORY: 60-year-old man follow-up cardiac surgery FINDINGS:Compared with study of the previous day, postsurgical changes in the heart and mediastinum with cardiomegaly are stable. Gu[place]upita-Radha catheter remains in place. Left thoracostomy tube remains in place. No pneumothorax. Pulmonary vascular congestion with interstitial lung disease remain prominent. Procedure Note Deacon Cummings MD - 05/07/2021 EXAMINATION: XR CHEST 1 VIEW DATE: 05/07/2021 3:55 AM HISTORY: 60-year-old man follow-up cardiac surgery FINDINGS:Compared with study of the previous day, postsurgical changes in the heart and mediastinum with cardiomegaly are stable. [place]-Radha catheter remains in place. Left thoracostomy tube remains in place. No pneumothorax. Pulmonary vascular congestion with interstitial lung disease remain prominent. IMPRESSION: Persistent prominent interstitial lung disease with failure. Electronically signed by: Deacon Cummings M.D. Rhina Granados MD IMG XR PROCEDURES Final Resu lt * eGFR (05/07/2021 4:[address] DESIGN ENGINEER) eGFR 111 mL/min/1.7 3 m2 HENRIK DON Comment: Interpretive [...] data was last reviewed 2020 Blood 05/07/2021 4:[address] DESIGN ENGINEER 05/07/2021 4:[address] DESIGN ENGINEER Rhina Granados MD LAB BLOOD ORDERABLES Final R esult Performing Organization Address City/[facility]/ZIP Co de Phone Number HENRIK [address] [place], [place] [id number] * Magnesium (05/07/2021 4:[address] DESIGN ENGINEER) Magnesium 1.7 1.4 - 2.5 mg/dL [facility] Blood 05/07/2021 4:[address] DESIGN ENGINEER 05/07/2021 4:[address] DESIGN ENGINEER Silviano Huddleston [employer] LAB BLOOD ORDERABLES Final Result Performing Organization Address [facility] de Phone Number SHARIFAFORMERLY NAMED [facility] [address] [address] * Phosphorus (05/07/2021 4:[address] DESIGN ENGINEER) Phosphorus, pl 2.7 2.3 - 4.5 mg/dL [facility] Blood 05/07/2021 4:[address] DESIGN ENGINEER 05/07/2021 4:[address] DESIGN ENGINEER Silviano Huddleston [employer] LAB BLOOD ORDERABLES Final Result Performing Organization Address [facility] Co de Phone Number SHARIFAFORMERLY NAMED [facility] [address] [facility] [place], [place] [phone] * (ABNORMAL) CBC without differential (05/07/2021 4:[address] DESIGN ENGINEER) WBC 16.6(H) 3.8 - 9.9 K/cumm [facility] Hgb 8.6(L) 13.0 - 17.5 g/dL [facility] Hct 25.5(L) 38.9 - 50.3 % [facility] Plt 197 150 - 400 K/cumm [facility] MPV 11.3 9.1 - 12.3 fL CERNER RBC 2.76(L) 4.30 - 5.80 M/cumm [facility] MCV 92.4 81.3 - 96.4 fL [facility]ER MCH 31.2 27.1 - 33.3 pg CERNER MCHC 33.7 32.3 - 35.7 g/dL [facility] RDW CV 14.3 11.1 - 14.9 % [facility] CH RDW SD 47.6 35.7 - 48.1 fL [facility] NRBC abs 0.00 0.00 - 0.01 K/cumm [facility] Blood 05/07/2021 4:[address] DESIGN ENGINEER 05/07/2021 4:[address] DESIGN ENGINEER Rhina Granados MD LAB BLOOD ORDERABLES Final R esult [facility] [address] [place] [address] * (ABNORMAL) Basic metabolic panel (05/07/2021 4:[address] DESIGN ENGINEER) Sodium 137 135 - 145 mmol/L [facility] Potassium, pl 3.3 3.3 - 4.9 mmol/L [facility] Chloride 103 97 - 110 mmol/L [facility] CO2 18(L) 22 - 32 mmol/L [facility] Anion gap 16(H) 2 - 15 mmol/L [facility] BUN 16 8 - 25 mg/dL [facility] Creatinine 0.59(L) 0.80 - 1.30 mg/dL [facility] Glucose 152 70 - 199 mg/dL [facility] Comment: Interpretive Data Fasting [...] 2017. Calcium 8.1(L) 8.5 - 10.3 mg/dL [facility] Blood 05/07/2021 4:[address] DESIGN ENGINEER 05/07/2021 4:[address] DESIGN ENGINEER Rhina Granados MD LAB BLOOD ORDERABLES Final R esult Performing Organization Address [facility]/ZIP Co de Phone Number [facility] [address] [place] [address] * POCT glucose (05/07/2021 4:[address] DESIGN ENGINEER) Glucose, POC 146 70 - 199 mg/dL [facility] Blood 05/07/2021 4:[address] DESIGN ENGINEER 05/07/2021 4:[address] DESIGN ENGINEER Nalini Clayton MD LAB POCT ORDERABLES - DEVICE Fin al Result Performing Organization Address [facility] de Phone Number [facility] [address] [place], [place] [phone] * eGFR (05/06/2021 11:[address] DESIGN ENGINEER) eGFR 109 mL/min/1.7 3 m2 [facility] Comment: Interpretive Data Reference Interval Normal ?>/= [...] reviewed 2020 Blood 05/06/2021 11:[address] DESIGN ENGINEER 05/06/2021 11:[address] DESIGN ENGINEER Rhina Granados MD LAB BLOOD ORDERABLES Final R esult Performing Organization Address [facility] Co de Phone Number [facility] [address] [place] [address] * Magnesium (05/06/2021 11:[address] DESIGN ENGINEER) Magnesium 1.8 1.4 - 2.5 mg/dL [facility] Blood 05/06/2021 11:[address] DESIGN ENGINEER 05/06/2021 11:[address] DESIGN ENGINEER Rhina Granados MD LAB BLOOD ORDERABLES Final R esult Performing Organization Address [facility] de Phone Number [facility] [address] [place] [address] * (ABNORMAL) Basic metabolic panel (05/06/2021 11:[address] DESIGN ENGINEER) Sodium 138 135 - 145 mmol/L [facility] Potassium, pl 3.6 3.3 - 4.9 mmol/L [facility] Chloride 104 97 - 110 mmol/L [facility] CO2 19(L) 22 - 32 mmol/L [facility] Anion gap 15 2 - 15 mmol/L [facility] BUN 17 8 - 25 mg/dL [facility] Creatinine 0.62(L) 0.80 - 1.30 mg/dL [facility] Glucose 169 70 - 199 mg/dL [facility] Comment: Interpretive [...] 2017. Calcium 8.3(L) 8.5 - 10.3 mg/dL [facility] NAM[facility] Blood 05/06/2021 11:[address] DESIGN ENGINEER 05/06/2021 11:[address] DESIGN ENGINEER Rhina Granados MD LAB BLOOD ORDERABLES Final R esult Performing Organization Address [facility] Co de Phone Number [facility] [address] [place] [address] * POCT glucose (05/06/2021 11:[address] DESIGN ENGINEER) Glucose, POC 163 70 - 199 mg/dL [facility] Blood 05/06/2021 11:[address] DESIGN ENGINEER 05/06/2021 11:[address] DESIGN ENGINEER Nalini Clayton MD LAB POCT ORDERABLES - DEVICE Fin al Result Performing Organization Address [facility] Co de Phone Number [facility] [address] [place] [address] * POCT glucose (05/06/2021 8:[address] DESIGN ENGINEER) Glucose, POC 176 70 - 199 mg/dL [facility] Blood 05/06/2021 8:[address] DESIGN ENGINEER 05/06/2021 8:[address] DESIGN ENGINEER Nalini Clayton MD LAB POCT ORDERABLES - DEVICE Fin al Result Performing Organization Address [facility] Co de Phone Number SHARIFAFORMERLY NAMED [facility] [address] [facility] [place] [address] * POCT glucose (05/06/2021 3:[address] DESIGN ENGINEER) Glucose, POC 140 70 - 199 mg/dL [facility] Blood 05/06/2021 3:[address] DESIGN ENGINEER 05/06/2021 3:[address] DESIGN ENGINEER Nalini Clayton MD LAB POCT ORDERABLES - DEVICE Fin or Result Performing Organization Address [facility] de Phone Number SHARIFAFORMERLY NAMED [facility] [address] [place] [address] * eGFR (05/06/2021 1:[address] DESIGN ENGINEER) eGFR 104 mL/min/1.7 3 m2 [facility] Comment: Interpretive Data Reference Interval Normal ?>/= [...] last reviewed 2020 Blood 05/06/2021 1:[address] DESIGN ENGINEER 05/06/2021 1:[address] DESIGN ENGINEER Rhina Granados MD LAB BLOOD ORDERABLES Final R esult Performing Organization Address City/[facility]/ZIP Co de Phone Number HENRIK DON [address] [place] [address] * (ABNORMAL) CBC without differential (05/06/2021 1:[address] DESIGN ENGINEER) WBC 16.1(H) 3.8 - 9.9 K/cumm CERNER [...] - 14.9 % [facility] RDW SD 46.1 35.7 - 48.1 fL [facility] NRBC abs 0.00 0.00 - 0.01 K/cumm [facility] Blood 05/06/2021 1:[address] DESIGN ENGINEER 05/06/2021 1:[address] DESIGN ENGINEER us Rhina Granados MD LAB BLOOD ORDERABLES Final R esult HENRIK DON [address] [place] [address] * Magnesium (05/06/2021 1:[address] DESIGN ENGINEER) Magnesium 1.8 1.4 - 2.5 mg/dL [facility] Blood 05/06/2021 1:[address] DESIGN ENGINEER 05/06/2021 1:[address] DESIGN ENGINEER Rhina Granados MD LAB BLOOD ORDERABLES Final R esult Performing Organization Address City/[facility] Co de Phone Number HENRIK [address] [place] [address] * (ABNORMAL) Basic metabolic panel (05/06/2021 1:[address] DESIGN ENGINEER) Sodium 139 135 - 145 mmol/L [facility]ER[facility] NAMED [facility] Potassium, pl 3.4 3.3 - 4.9 mmol/L [facility] Chloride 107 97 - 110 mmol/L [facility] CO2 22 22 - 32 mmol/L [facility] Anion gap 10 2 - 15 mmol/L [facility] BUN 15 8 - 25 mg/dL [facility] NAMED [facility] Creatinine 0.69(L) 0.80 - 1.30 mg/dL [facility] NAMED [facility] Comment:Icteric sample, test results may be affected. Glucose 163 70 - 199 mg/dL [facility] Comment: Interpretive Data Fasting glucose >/= 126 [...] 2017. Calcium 8.2(L) 8.5 - 10.3 mg/dL [facility] Blood 05/06/2021 1:[address] DESIGN ENGINEER 05/06/2021 1:[address] DESIGN ENGINEER us Rhina Granados MD LAB BLOOD ORDERABLES Final R esult Performing Organization Address [facility] Co de Phone Number HENRIK [address] [place] [address] * POCT glucose (05/06/2021 11:[address] DESIGN ENGINEER) Glucose, POC 169 70 - 199 mg/dL [facility] Blood 05/06/2021 11:[address] DESIGN ENGINEER 05/06/2021 11:[address] DESIGN ENGINEER us Nalini Clayton MD LAB POCT ORDERABLES - DEVICE Fin al Result Performing Organization Address [facility] de Phone Number [facility] [address] [place] [address] * (ABNORMAL) POCT glucose (05/06/2021 7:[address] DESIGN ENGINEER) Glucose, POC 213(H) 70 - 199 mg/dL [facility] Blood 05/06/2021 7:[address] DESIGN ENGINEER 05/06/2021 7:[address] DESIGN ENGINEER Nalini Clayton MD LAB POCT ORDERABLES - DEVICE Fin al Result Performing Organization Address [facility] Phone Number [facility] [address] [place] [address] * XR Chest 1 View - Portable - in AM (05/06/2021 5:[address] DESIGN ENGINEER) Anatomical Region Laterality Modality Body, Chest N/A Computed Radiogr aphy 05/06/2021 8:[address] DESIGN ENGINEER Impressions 05/06/2021 8:[address] DESIGN ENGINEER 1. ??Interval removal of endotracheal tube. ??Remaining tubes and lines are appropriately positioned. 2. ??Similar-appearing cardiomegaly, pulmonary vascular congestion, and prominent bilateral interstitial markings suggestive of interstitial pulmonary edema. Electronically signed by: Richard Lopez II, D.O. Narrative 05/06/2021 8:[address] DESIGN ENGINEER EXAMINATION: XR CHEST 1 VIEW DATE: 05/06/2021 [...] Electronically signed by: Richard Lopez II, D.O. Rhina Granados MD IMG XR PROCEDURES Final Resu lt * eGFR (05/06/2021 3:[address] DESIGN ENGINEER) eGFR 103 mL/min/1.7 3 m2 HENRIK DON [...] last reviewed 2020 Blood 05/06/2021 3:[address] DESIGN ENGINEER 05/06/2021 4:[address] DESIGN ENGINEER Rhina Granados MD LAB BLOOD ORDERABLES Final R esult Performing Organization Address City/[facility] Co de Phone Number [facility] [address] [place] [address] * Magnesium (05/06/2021 3:[address] DESIGN ENGINEER) Pathologist [facility] Magnesium 2.0 1.4 - 2.5 mg/dL [facility] Blood 05/06/2021 3:[address] DESIGN ENGINEER 05/06/2021 4:[address] DESIGN ENGINEER Silviano Huddleston [employer] LAB BLOOD ORDERABLES Final Result Performing Organization Address [facility] de Phone Number [facility] [address] [facility] [place], [place] [id number] * Phosphorus (05/06/2021 3:[address] DESIGN ENGINEER) Pathologist [facility] Phosphorus, pl 3.7 2.3 - 4.5 mg/dL [facility] Blood 05/06/2021 3:[address] DESIGN ENGINEER 05/06/2021 4:[address] DESIGN ENGINEER Silviano Huddleston [employer] LAB BLOOD ORDERABLES Final Result Performing Organization Address [facility] de Phone Number [facility] [address] [facility] [place], [place] [id number] * (ABNORMAL) CBC without differential (05/06/2021 3:[address] DESIGN ENGINEER) Pathologist [facility] WBC 14.6(H) 3.8 - 9.9 K/cumm [facility] Hgb 9.2(L) 13.0 - 17.5 g/dL [facility] Hct 27.9(L) 38.9 - 50.3 % CERFORMERLY NAMED [facility] Plt 204 150 - 400 K/cumm [facility] MPV 11.7 9.1 - 12.3 fL [facility] RBC 3.06(L) 4.30 - 5.80 M/cumm [facility] MCV 91.2 81.3 - 96.4 fL [facility] MCH 30.1 27.1 - 33.3 pg CERFORMERLY NAMED [facility] MCHC 33.0 32.3 - 35.7 g/dL [facility] RDW CV 14.6 11.1 - 14.9 % [facility] CH RDW SD 47.9 35.7 - 48.1 fL [facility] NRBC abs 0.00 0.00 - 0.01 K/cumm [facility] Blood 05/06/2021 3:[address] DESIGN ENGINEER 05/06/2021 4:[address] DESIGN ENGINEER Rhina Granados MD LAB BLOOD ORDERABLES Final R esult [facility] [address] [place] [address] * (ABNORMAL) Basic metabolic panel (05/06/2021 3:[address] DESIGN ENGINEER) Sodium 142 135 - 145 mmol/L [facility] Potassium, pl 3.7 3.3 - 4.9 mmol/L [facility] Chloride 106 97 - 110 mmol/L [facility] CO2 22 22 - 32 mmol/L [facility] Anion gap 14 2 - 15 mmol/L [facility] BUN 10 8 - 25 mg/dL [facility] Creatinine 0.71(L) 0.80 - 1.30 mg/dL [facility] Glucose 203(H) 70 - 199 mg/dL [facility] Comment: Interpretive Data Fasting glucose >/= 126 [...] 2017. Calcium 8.3(L) 8.5 - 10.3 mg/dL [facility] NAMED [facility] Blood 05/06/2021 3:[address] DESIGN ENGINEER 05/06/2021 4:[address] DESIGN ENGINEER Rhina Granados MD LAB BLOOD ORDERABLES Final R esult Performing Organization Address [facility] Co de Phone Number [facility] [address] of [place], [place] [id number] * (ABNORMAL) POCT glucose (05/05/2021 11:[address] DESIGN ENGINEER) Glucose, POC 212(H) 70 - 199 mg/dL [facility] NAMED [facility] Blood 05/05/2021 11:[address] DESIGN ENGINEER 05/05/2021 11:[address] DESIGN ENGINEER us Nalini Clayton MD LAB POCT ORDERABLES - DEVICE Fin al Result Performing Organization Address [facility] Phone Number [facility] [address] [place] [address] * Critical Care (05/05/2021 11:[address] DESIGN ENGINEER) Narrative Wally Aguilar DO - 05/05/2021 11:[address] DESIGN ENGINEER Wally Aguilar DO ? 05/13/2021 ??2:22 PM Critical Care [...] plan with the ICU team and other medical/program evaluation consultant staff, making frequent assessments and decisions [...] time documenting in the medical record us Wally Aguilar DO IN CLINIC/BEDSIDE ORDER REJI Edited Result - Final * (ABNORMAL) POCT glucose (05/05/2021 8:[address] DESIGN ENGINEER) Glucose, POC 230(H) 70 - 199 mg/dL [facility] Blood 05/05/2021 8:[address] DESIGN ENGINEER 05/05/2021 8:[address] DESIGN ENGINEER us Nalini Clayton MD LAB POCT ORDERABLES - DEVICE Fin al Result [facility] DON [address] Department [place] [address] * POCT glucose (05/05/2021 4:[address] DESIGN ENGINEER) Glucose, POC 149 70 - 199 mg/dL [facility] Blood 05/05/2021 4:[address] DESIGN ENGINEER 05/05/2021 4:[address] DESIGN ENGINEER us Nalini Clayton MD LAB POCT ORDERABLES - DEVICE Fin al Result Performing Organization Address [facility] Co de Phone Number [facility]K [address] [place] [address] * eGFR (05/05/2021 4:[address] DESIGN ENGINEER) eGFR 119 mL/min/1.7 3 m2 [facility] Comment: Interpretive Data Reference Interval Normal ?>/= [...] last reviewed 2020 Blood 05/05/2021 4:[address] DESIGN ENGINEER 05/05/2021 4:[address] DESIGN ENGINEER us Rhina Granados MD LAB BLOOD ORDERABLES Final R esult Performing Organization Address [facility] Co de Phone Number SHARIFAFORMERLY NAMED [facility] [address] [place] [address] * Magnesium (05/05/2021 4:[address] DESIGN ENGINEER) Magnesium 2.1 1.4 - 2.5 mg/dL [facility] Blood 05/05/2021 4:[address] DESIGN ENGINEER 05/05/2021 4:[address] DESIGN ENGINEER Rhina Granados MD LAB BLOOD ORDERABLES Final R esult Performing Organization Address City/[facility] Phone Number [facility] [address] Department [place] [address] * (ABNORMAL) Basic metabolic panel (05/05/2021 4:[address] DESIGN ENGINEER) Sodium 141 135 - 145 mmol/L [facility] Potassium, pl 3.7 3.3 - 4.9 mmol/L [facility] Chloride 107 97 - 110 mmol/L [facility] CO2 18(L) 22 - 32 mmol/L [facility] Anion gap 16(H) 2 - 15 mmol/L [facility] BUN 7(L) 8 - 25 mg/dL [facility] Creatinine 0.50(L) 0.80 - 1.30 mg/dL [facility] Comment:Icteric sample, test results may be affected. Glucose 153 70 - 199 mg/dL [facility] Comment: Interpretive Data Fasting glucose >/= 126 [...] 8.2(L) 8.5 - 10.3 mg/dL [facility] Blood 05/05/2021 4:[address] DESIGN ENGINEER 05/05/2021 4:[address] DESIGN ENGINEER Rhina Granados MD LAB BLOOD ORDERABLES Final R esult Performing Organization Address City/[facility]/[place] [address] [address] Department [place] [address] * (ABNORMAL) Blood gas, arterial (05/05/2021 4:[address] DESIGN ENGINEER) pH, Art 7.43 7.35 - 7.45 [facility] [...] % [facility] Blood 05/05/2021 4:[address] DESIGN ENGINEER 05/05/2021 4:[address] DESIGN ENGINEER Rhina Granados MD LAB BLOOD ORDERABLES Final R tony Performing Organization Address [facility] [place] Number [place] [address] [address] [place] [address] * Critical Care (05/05/2021 12:[address] DESIGN ENGINEER) Narrative Frank Dugan MD - 05/05/2021 12:[address] DESIGN ENGINEER Frank Dugan MD ? 05/05/2021 12:28 PM [...] plan with the ICU team and other medical/program evaluation consultant staff, making frequent assessments and decisions [...] Result * POCT glucose (05/05/2021 12:[address] DESIGN ENGINEER) Pathologist [facility] Glucose, POC 137 70 - 199 mg/dL [facility] Blood 05/05/2021 12:[address] DESIGN ENGINEER 05/05/2021 12:[address] DESIGN ENGINEER Nalini Clayton MD LAB POCT ORDERABLES - DEVICE Fin al Result [facility] DON [address] Department [place] [address] * eGFR (05/05/2021 12:[address] DESIGN ENGINEER) Pathologist [facility] eGFR 116 mL/min/1.7 3 m2 [facility] Comment: Interpretive [...] reviewed 2020 Blood 05/05/2021 12:[address] DESIGN ENGINEER 05/05/2021 12:[address] DESIGN ENGINEER us Rhina Granados MD LAB BLOOD ORDERABLES Final R esult [facility] [address] Department [place] [address] * Calcium, ionized (05/05/2021 12:[address] DESIGN ENGINEER) Pathologist [facility] Ca, ionized, bld 4.63 4.60 - 5.20 mg/dL [facility] Ca, ionized, bld, calc 4.74 4.60 - 5.20 mg/dL [facility] Blood 05/05/2021 12:[address] DESIGN ENGINEER 05/05/2021 12:[address] DESIGN ENGINEER Rhina Granados MD LAB BLOOD ORDERABLES Final R esult Performing Organization Address [facility] de Phone Number [facility] DON [address] Department [place] [address] * (ABNORMAL) Blood gas, arterial (05/05/2021 12:[address] DESIGN ENGINEER) pH, Art 7.44 7.35 - 7.45 [facility] [...] [facility] CH Blood 05/05/2021 12:[address] DESIGN ENGINEER 05/05/2021 12:[address] DESIGN ENGINEER Result [facility] Rhina Granados MD LAB BLOOD ORDERABLES Final R esult Performing Organization Address [facility] de Phone Number [facility]RIK DON [address] Department [place] [address] * (ABNORMAL) Basic metabolic panel (05/05/2021 12:[address] DESIGN ENGINEER) Pathologist [facility] Sodium 141 135 - 145 mmol/L [facility] CH Potassium, pl 3.6 3.3 - 4.9 mmol/L [facility] Chloride 106 97 - 110 mmol/L [facility] CO2 20(L) 22 - 32 mmol/L [facility] Anion gap 15 2 - 15 mmol/L [facility] BUN 7(L) 8 - 25 mg/dL [facility] Creatinine 0.53(L) 0.80 - 1.30 mg/dL [facility] [...] 8.3(L) 8.5 - 10.3 mg/dL [facility] Blood 05/05/2021 12:[address] DESIGN ENGINEER 05/05/2021 12:[address] DESIGN ENGINEER Rhina Granados MD LAB BLOOD ORDERABLES Final R esult Performing Organization Address City/[facility]/ZIP Co de Phone Number [facility] [address] [address] [place] [address] * Magnesium (05/05/2021 12:[address] DESIGN ENGINEER) Pathologist [facility] Magnesium 2.1 1.4 - 2.5 mg/dL [facility] Blood 05/05/2021 12:[address] DESIGN ENGINEER 05/05/2021 12:[address] DESIGN ENGINEER Rhina Granados MD LAB BLOOD ORDERABLES Final R esult Performing Organization Address City/[facility]/ZIP Co de Phone Number [facility] DON [address] [place], [place] [id number] * (ABNORMAL) CBC without differential (05/05/2021 12:[address] DESIGN ENGINEER) WBC 13.5(H) 3.8 - 9.9 K/cumm [facility] Hgb 9.8(L) 13.0 - 17.5 g/dL [facility] NAMED [facility] Hct 27.7(L) 38.9 - 50.3 % [facility] Plt 193 150 - 400 K/cumm [facility] MPV 11.5 9.1 - 12.3 fL [facility] RBC 3.19(L) 4.30 - 5.80 M/cumm CERFORM[facility]LY NAMED [facility] MCV 86.8 81.3 - 96.4 fL [facility] MCH 30.7 27.1 - 33.3 pg [facility] MCHC 35.4 32.3 - 35.7 g/dL [facility] CH RDW CV 14.3 11.1 - 14.9 % [facility] RDW SD 44.9 35.7 - 48.1 fL [facility] NRBC abs 0.00 0.00 - 0.01 K/cumm [facility] Blood 05/05/2021 12:[address] DESIGN ENGINEER 05/05/2021 12:[address] DESIGN ENGINEER Rhina Granados MD LAB BLOOD ORDERABLES Final R esult Performing Organization Address [facility] Co de Phone Number [facility] [address] [facility] [place] [address] * POCT glucose (05/05/2021 11:[address] DESIGN ENGINEER) Glucose, POC 119 70 - 199 mg/dL [facility] Blood 05/05/2021 11:[address] DESIGN ENGINEER 05/05/2021 11:[address] DESIGN ENGINEER Nalini Clayton MD LAB POCT ORDERABLES - DEVICE Fin al Result Performing Organization Address [facility] Co de Phone Number [facility] [address] [facility] [address] [place], [place] [id number] * POCT glucose (05/05/2021 10:[address] DESIGN ENGINEER) Glucose, POC 136 70 - 199 mg/dL [facility] Blood 05/05/2021 10:[address] DESIGN ENGINEER 05/05/2021 10:[address] DESIGN ENGINEER Nalini Clayton MD LAB POCT ORDERABLES - DEVICE Fin al Result Performing Organization Address [facility] de Phone Number [facility] [address] [facility] [address] [place], [place] [id number] * (ABNORMAL) Blood gas, arterial (05/05/2021 10:[address] DESIGN ENGINEER) pH, Art 7.45 7.35 - 7.45 [facility] [...] (Measured) 96(H) 90 - 95 % [facility] Blood 05/05/2021 10:[address] DESIGN ENGINEER 05/05/2021 10:[address] DESIGN ENGINEER us Nalini Clayton MD LAB BLOOD ORDERABLES Final Resul t [facility] [address] Department [place] [address] * (ABNORMAL) Aerobic culture and gram stain Tracheal aspirate Lung (05/05/2021 9:[address] DESIGN ENGINEER) Direct Specimen Exam Stain: Moderate polymorphonuclear leukocytes seen. Few squamous epithelial cells seen. Moderate mixed bacterial tirso seen on Gram stain. Predominant organism seen on Gram stain: Yeast [facility] Comment:Testing performed by : [facility], [address] [place] [address] Report Final Report: Greater than or equal to 100,000 colonies/ml of Yeast Britta pneumonia is very rare and requires a histopathological diagnosis. ??The recovery of these organisms in routine culture, in most cases, only represents overgrowth of the organism secondary to antimicrobial therapy. Please contact the microbiology laboratory at [phone] if identification or susceptibility testing is clinically indicated. (.) [facility]K Comment:Testing performed by : [facility], [address] [place] [address]., [id number] Organism YEAST SHARIFANER Tracheal aspirate (Lung) 05/05/2021 9:[address] DESIGN ENGINEER 05/05/2021 12:[address] DESIGN ENGINEER Narrative HENRIK - 05/07/2021 9:[address] DESIGN ENGINEER Testing performed by [facility] Microbiology Laboratory ([phone]) Specimens submitted from normally sterile body sites will have all bacterial morphotypes identified. ??Specimens that contain grossly mixed tirso and/or are from body sites that are not normally sterile will be examined for Staphylococcus aureus, Pseudomonas aeruginosa, beta-hemolytic strep, vancomycin-resistant Enterococcus and fungus. ??If any of these are isolated, the organism will be reported. Current interpretive data was last revised on 2016. us Rhina Granados MD LAB MICROBIOLOGY - GENERAL O RDERABLES Final Result Performing Organization Address [facility] Co de Phone Number H[facility]RIK [address] Department [address] [place], [place] [id number] * POCT glucose (05/05/2021 9:[address] DESIGN ENGINEER) Glucose, POC 119 70 - 199 mg/dL [facility] NAMED [facility] Blood 05/05/2021 9:[address] DESIGN ENGINEER 05/05/2021 9:[address] DESIGN ENGINEER Nalini Clayton MD LAB POCT ORDERABLES - DEVICE Fin al Result Performing Organization Address [facility] de Phone Number [facility] [address] Department [address] [place], [place] [phone] * POCT glucose (05/05/2021 7:[address] DESIGN ENGINEER) Glucose, POC 95 70 - 199 mg/dL [facility] Blood 05/05/2021 7:[address] DESIGN ENGINEER 05/05/2021 7:[address] DESIGN ENGINEER Nalini Clayton MD LAB POCT ORDERABLES - DEVICE Fin al Result Performing Organization Address [facility] Co de Phone Number [facility] [address] [facility] [address] [place], [place] [phone] * Transfuse RBC (05/05/2021 7:[address] DESIGN ENGINEER) Blood specimen (specimen) Rhina Granados MD BLOOD TRANSFUSION ORDERABLES Final Result Performing Organization Address [facility] de Phone Number SHARIFAFORMERLY NAMED [facility] [address] [place] [address] * (ABNORMAL) Blood gas, arterial (05/05/2021 6:[address] DESIGN ENGINEER) pH, Art 7.41 7.35 - 7.45 [facility] [...] % [facility] Blood 05/05/2021 6:[address] DESIGN ENGINEER 05/05/2021 6:[address] DESIGN ENGINEER Rhina Granados MD LAB BLOOD ORDERABLES Final R esult Performing Organization Address [facility] de Phone Number HENRIK [address] [place] [address] * POCT glucose (05/05/2021 6:[address] DESIGN ENGINEER) Glucose, POC 111 70 - 199 mg/dL [facility] Blood 05/05/2021 6:[address] DESIGN ENGINEER 05/05/2021 6:[address] DESIGN ENGINEER Nalini Clayton MD LAB POCT ORDERABLES - DEVICE Fin al Result Performing Organization Address [facility] de Phone Number SHARIFAFORMERLY NAMED [facility] [address] [place] [address] * XR Chest 1 View - Portable - in AM (05/05/2021 5:[address] DESIGN ENGINEER) Anatomical Region Laterality Modality Body, Chest N/A Computed Radiogr aphy 05/05/2021 8:[address] DESIGN ENGINEER Impressions 05/05/2021 8:[address] DESIGN ENGINEER Increasing failure. Electronically signed by: Deacon Cummings M.D. Narrative 05/05/2021 8:[address] DESIGN ENGINEER EXAMINATION: XR CHEST 1 VIEW DATE: [...] lt * POCT glucose (05/05/2021 5:[address] DESIGN ENGINEER) Glucose, POC 123 70 - 199 mg/dL [facility] Blood 05/05/2021 5:[address] DESIGN ENGINEER 05/05/2021 5:[address] DESIGN ENGINEER us Nalini Clayton MD LAB POCT ORDERABLES - DEVICE Fin al Result [facility] [address] [place] [address] * (ABNORMAL) Blood gas, arterial (05/05/2021 4:[address] DESIGN ENGINEER) pH, Art 7.42 7.35 - 7.45 [facility] [...] Art (Measured) 96(H) 90 - 95 % [facility] Blood 05/05/2021 4:[address] DESIGN ENGINEER 05/05/2021 4:[address] DESIGN ENGINEER us Rhina Granados MD LAB BLOOD ORDERABLES Final R esult Performing Organization Address [facility]/ZIP Co de Phone Number [facility] [address] [place] [address] * eGFR (05/05/2021 4:[address] DESIGN ENGINEER) [facility] eGFR 117 mL/min/1.7 3 m2 SHARIFAFORMERLY NAMED [facility] Comment: Interpretive Data Reference Interval Normal [...] last reviewed 2020 Blood 05/05/2021 4:[address] DESIGN ENGINEER 05/05/2021 4:[address] DESIGN ENGINEER us Nalini Clayton MD LAB BLOOD ORDERABLES Final Resul t Performing Organization Address City/[facility]/ZIP Co de Phone Number [facility] DON [address] [place] [address] * Manual Differential (05/05/2021 4:[address] DESIGN ENGINEER) Differential Auto [facility] RBC morphology Normal [facility] Platelet estimate Adequate [facility] Blood 05/05/2021 4:[address] DESIGN ENGINEER 05/05/2021 4:[address] DESIGN ENGINEER Rhina Granados MD LAB BLOOD ORDERABLES Final R esult [facility] DON [address] [place] [address] * (ABNORMAL) Differential, auto (05/05/2021 4:[address] DESIGN ENGINEER) Neutrophil abs 11.1(H) 1.7 - 6.5 K/cumm [facility] Imm gran abs 0.1 0.0 - 0.1 K/cumm [facility] Lymphocyte abs 0.4(L) 0.8 - 3.3 K/cumm [facility] Monocyte abs 1.5(H) 0.2 - 0.8 K/cumm [facility] Eosinophil abs 0.0 0.0 - 0.5 K/cumm [facility] Basophil abs 0.1 0.0 - 0.1 K/cumm [facility] Neutrophil pct 84.2 % [facility] Comment: Interpretive Data Percent cell count reference ranges are not reported, since discordance with absolute values may lead to misinterpretation of CBC data. Current Interpretive Data was last revised on 2017. Imm gran pct 0.9 % [facility] Comment: Interpretive Data Percent cell count reference ranges are not reported, since discordance with absolute values may lead to misinterpretation of CBC data. Current Interpretive Data was last revised on 2017. Lymphocyte pct 3.1 % [facility] Comment: Interpretive Data Percent cell count reference ranges are not reported, since discordance with absolute values may lead to misinterpretation of CBC data. Current Interpretive Data was last revised on 2017. Monocyte pct 11.2 % [facility] Comment: Interpretive Data Percent cell count reference ranges are not reported, since discordance with absolute values may lead to misinterpretation of CBC data. Current Interpretive Data was last revised on 2017. Eosinophil pct 0.2 % [facility] Comment: Interpretive Data Percent cell count reference ranges are not reported, since discordance with absolute values may lead to misinterpretation of CBC data. Current Interpretive Data was last revised on 2017. Basophil pct 0.4 % [facility] Comment: Interpretive Data Percent cell count reference ranges are not reported, since discordance with absolute values may lead to misinterpretation of CBC data. Current Interpretive Data was last revised on 2017. Blood 05/05/2021 4:[address] DESIGN ENGINEER 05/05/2021 4:[address] DESIGN ENGINEER us Rhina Granados MD LAB BLOOD ORDERABLES Final R esult [facility] [address] [place] [address] * (ABNORMAL) CBC with auto differential (05/05/2021 4:[address] DESIGN ENGINEER) WBC 13.2(H) 3.8 - 9.9 K/cumm [facility] Hgb 10.7(L) 13.0 - 17.5 g/dL [facility] Comment:Hemoglobin delta due to apparent blood transfusion. Hct 30.4(L) 38.9 - 50.3 % [facility] Plt 191 150 - 400 K/cumm [facility] MPV 11.2 9.1 - 12.3 fL [facility] RBC 3.46(L) 4.30 - 5.80 M/cumm [facility] MCV 87.9 81.3 - 96.4 fL [facility] MCH 30.9 27.1 - 33.3 pg [facility] MCHC 35.2 32.3 - 35.7 g/dL [facility] RDW CV 14.1 11.1 - 14.9 % [facility] RDW SD 44.9 35.7 - 48.1 fL [facility] NRBC abs 0.00 0.00 - 0.01 K/cumm [facility] Blood 05/05/2021 4:[address] DESIGN ENGINEER 05/05/2021 4:[address] DESIGN ENGINEER Rhina Granados MD LAB BLOOD ORDERABLES Edited Result - Final Performing Organization Address [facility]/ZIP Co de Phone Number [facility] DON [address] [facility] [place] [address] * Magnesium (05/05/2021 4:[address] DESIGN ENGINEER) Magnesium 1.9 1.4 - 2.5 mg/dL [facility] Blood 05/05/2021 4:[address] DESIGN ENGINEER 05/05/2021 4:[address] DESIGN ENGINEER Silviano Huddleston NP LAB BLOOD ORDERABLES Final Result Performing Organization Address [facility] de Phone Number [facility] DON [address] [address] * Phosphorus (05/05/2021 4:[address] DESIGN ENGINEER) Phosphorus, pl 3.4 2.3 - 4.5 mg/dL [facility] NAMED [facility] Blood 05/05/2021 4:[address] DESIGN ENGINEER 05/05/2021 4:[address] DESIGN ENGINEER Silviano Huddleston [employer] LAB BLOOD ORDERABLES Final Result Performing Organization Address [facility] de Phone Number H[facility]RIK DON [address] [place] [address] * (ABNORMAL) Basic metabolic panel (05/05/2021 4:[address] DESIGN ENGINEER) Sodium 143 135 - 145 mmol/L [facility] Potassium, pl 4.4 3.3 - 4.9 mmol/L [facility] Chloride 111(H) 97 - 110 mmol/L [facility] CO2 21(L) 22 - 32 mmol/L [facility] Anion gap 11 2 - 15 mmol/L [facility] BUN 7(L) 8 - 25 mg/dL [facility] Creatinine 0.52(L) 0.80 - 1.30 mg/dL [facility] Glucose 126 70 - 199 mg/dL [facility] Comment: Interpretive Data Fasting glucose >/= 126 [...] 2017. Calcium 7.0(L) 8.5 - 10.3 mg/dL [facility] Blood 05/05/2021 4:[address] DESIGN ENGINEER 05/05/2021 4:[address] DESIGN ENGINEER Rhina Granados MD LAB BLOOD ORDERABLES Final R esult Performing Organization Address [facility] Co de Phone Number [facility] [address] [place] [address] * Oxyhemoglobin, pulmonary artery (05/05/2021 4:[address] DESIGN ENGINEER) Oxyhemoglobin, PA 58.8 % [facility] Comment: Interpretive Data No reference range established. Current interpretive data was last revised 2019. Blood 05/05/2021 4:[address] DESIGN ENGINEER 05/05/2021 4:[address] DESIGN ENGINEER Rhina Granados MD LAB BLOOD ORDERABLES Final R esult SH[facility]ERLY NAMED [facility] [address] [employer] [place], [place] [phone] * POCT glucose (05/05/2021 3:[address] DESIGN ENGINEER) Glucose, POC 122 70 - 199 mg/dL [facility] Blood 05/05/2021 3:[address] DESIGN ENGINEER 05/05/2021 3:[address] DESIGN ENGINEER us Nalini Clayton MD LAB POCT ORDERABLES - DEVICE Fin al Result Performing Organization Address [facility] Co de Phone Number H[facility]RIK [address] [place] [address] * Transfuse RBC (05/05/2021 3:[address] DESIGN ENGINEER) Blood specimen (specimen) us Rhina Granados MD BLOOD TRANSFUSION ORDERABLES Final Result Performing Organization Address [facility] Co de Phone Number HENRIK [address] [place] [address] * POCT glucose (05/05/2021 2:[address] DESIGN ENGINEER) Glucose, POC 141 70 - 199 mg/dL [facility] Blood 05/05/2021 2:[address] DESIGN ENGINEER 05/05/2021 2:[address] DESIGN ENGINEER Nalini Clayton MD LAB POCT ORDERABLES - DEVICE Fin al Result Performing Organization Address [facility] de Phone Number SHARIFAMASON [address] [facility] [place] [address] * Oxyhemoglobin, pulmonary artery (05/05/2021 2:[address] DESIGN ENGINEER) Oxyhemoglobin, PA 40.0 % [facility] Comment: Interpretive Data No reference range established. Current interpretive data was last revised 2019. Blood 05/05/2021 2:[address] DESIGN ENGINEER 05/05/2021 2:[address] DESIGN ENGINEER us Rhina Granados MD LAB BLOOD ORDERABLES Final R esult Performing Organization Address [facility] Co de Phone Number H[facility]RIK [address] [place] [address] * eGFR (05/05/2021 2:[address] DESIGN ENGINEER) eGFR 107 mL/min/1.7 3 m2 [facility] Comment: Interpretive Data Reference Interval Normal ?>/= [...] last reviewed 2020 Blood 05/05/2021 2:[address] DESIGN ENGINEER 05/05/2021 2:[address] DESIGN ENGINEER us Rhina Granados MD LAB BLOOD ORDERABLES Final R esult [facility] [address] [place] [address] * (ABNORMAL) Magnesium (05/05/2021 2:[address] DESIGN ENGINEER) Pathologist [facility] Magnesium 2.6(H) 1.4 - 2.5 mg/dL [facility] Blood 05/05/2021 2:[address] DESIGN ENGINEER 05/05/2021 2:[address] DESIGN ENGINEER Rhina Granados MD LAB BLOOD ORDERABLES Final R esult [facility] [address] [place] [address] * (ABNORMAL) Basic metabolic panel (05/05/2021 2:[address] DESIGN ENGINEER) Sodium 142 135 - 145 mmol/L [facility] Potassium, pl 4.0 3.3 - 4.9 mmol/L [facility] Chloride 110 97 - 110 mmol/L [facility] CO2 22 22 - 32 mmol/L [facility] Anion gap 10 2 - 15 mmol/L [facility] BUN 7(L) 8 - 25 mg/dL [facility] Creatinine 0.64(L) 0.80 - 1.30 mg/dL [facility] Glucose 135 70 - 199 mg/dL [facility] Comment: [...] 2017. Calcium 8.2(L) 8.5 - 10.3 mg/dL [facility] Blood 05/05/2021 2:[address] DESIGN ENGINEER 05/05/2021 2:[address] DESIGN ENGINEER Rhina Granados MD LAB BLOOD ORDERABLES Final R joseult Performing Organization Address City/[facility]/ZIP Co de Phone Number [facility] [address] Department [place] [address] * Lactate (05/05/2021 2:[address] DESIGN ENGINEER) Lactate 1.6 0.7 - 2.0 mmol/L [facility] NAMED [facility] Blood 05/05/2021 2:[address] DESIGN ENGINEER 05/05/2021 2:[address] DESIGN ENGINEER us Rhina Granados MD LAB BLOOD ORDERABLES Final R esult Performing Organization Address [facility] de Phone Number [facility] [address] [facility] [place] [address] * Calcium, ionized (05/05/2021 2:[address] DESIGN ENGINEER) Ca, ionized, bld 4.72 4.60 - 5.20 mg/dL [facility] Ca, ionized, bld, calc 4.80 4.60 - 5.20 mg/dL [facility] Blood 05/05/2021 2:[address] DESIGN ENGINEER 05/05/2021 2:[address] DESIGN ENGINEER us Rhina Granados MD LAB BLOOD ORDERABLES Final R esult Performing Organization Address [facility] de Phone Number [facility] [address] [place] [address] * (ABNORMAL) Blood gas, arterial (05/05/2021 2:[address] DESIGN ENGINEER) pH, Art 7.43 7.35 - 7.45 [facility] [...] % [facility] Blood 05/05/2021 2:[address] DESIGN ENGINEER 05/05/2021 2:[address] DESIGN ENGINEER Result [facility] us Rhina Granados MD LAB BLOOD ORDERABLES Final R esult Performing Organization Address [facility] de Phone Number [facility] [address] [facility] [place] [address] * Transfuse RBC (05/05/2021 1:[address] DESIGN ENGINEER) Blood specimen (specimen) Rhina Granados MD BLOOD TRANSFUSION ORDERABLES Final Result Performing Organization Address [facility] Co de Phone Number [facility] [address] [place] [address] * Transfuse RBC: 1 Units (05/05/2021 1:[address] DESIGN ENGINEER) Blood specimen (specimen) Rhina Granados MD BLOOD TRANSFUSION ORDERABLES Final Result * POCT glucose (05/05/2021 1:[address] DESIGN ENGINEER) Glucose, POC 103 70 - 199 mg/dL [facility] Blood 05/05/2021 1:[address] DESIGN ENGINEER 05/05/2021 1:[address] DESIGN ENGINEER Nalini Clayton MD LAB POCT ORDERABLES - DEVICE Fin al Result Performing Organization Address [facility] Co de Phone Number [facility] [address] [facility] [place] [address] * eGFR (05/05/2021 12:[address] DESIGN ENGINEER) eGFR 118 mL/min/1.7 3 m2 [facility] Comment: Interpretive Data Reference Interval Normal ?>/= [...] reviewed 2020 Blood 05/05/2021 12:[address] DESIGN ENGINEER 05/05/2021 12:[address] DESIGN ENGINEER Rhina Granados MD LAB BLOOD ORDERABLES Final R [facility] Performing Organization Address [facility] Co de Phone Number [facility] [address] [place] [address] * (ABNORMAL) Protime-INR (05/05/2021 12:[address] DESIGN ENGINEER) PT 14.4(H) 9.5 - 13.6 sec [facility] INR 1.3(H) 0.9 - 1.2 [facility] Comment: Interpretive data Oral anticoagulant therapeutic ranges: Venous thromboembolism prophylaxis or treatment: 2.0-3.0 CARDIOLOGY Standard range: 2.0-3.0 High-intensity range: 2.5-3.5 Refer to indication-specific guidelines for appropriate target ranges for prosthetic heart valve replacement. Current interpretive data was last revised on 2019. Blood 05/05/2021 12:[address] DESIGN ENGINEER 05/05/2021 12:[address] DESIGN ENGINEER Rhina Granados MD LAB BLOOD ORDERABLES Final R esult Performing Organization Address [facility] Co de Phone Number [facility] [address] [place] [address] * aPTT (05/05/2021 12:[address] DESIGN ENGINEER) aPTT 33 27 - 37 sec [facility] Comment: Interpretive Data Therapeutic heparin range: 60.0 - 94.0 seconds. Based on correlation with therapeutic heparin activity range of 0.3-0.7 Units/mL. Current interpretive data was last revised on 2020. Blood 05/05/2021 12:[address] DESIGN ENGINEER 05/05/2021 12:[address] DESIGN ENGINEER Rhina Granados MD LAB BLOOD ORDERABLES Final R esult Performing Organization Address City/[facility]/ZIP Co de Phone Number [facility] [address] [place] [address] * (ABNORMAL) CBC without differential (05/05/2021 12:[address] DESIGN ENGINEER) WBC 14.3(H) 3.8 - 9.9 K/cumm [facility] Hgb 7.6(L) 13.0 - 17.5 g/dL [facility] Hct 22.6(L) 38.9 - 50.3 % [facility]ERFORMERLY NAMED [facility] Plt 206 150 - 400 K/cumm CERFORMERLY NAMED [facility] MPV 11.4 9.1 - 12.3 fL CERFORMERLY NAMED [facility] RBC 2.48(L) 4.30 - 5.80 M/cumm [facility] MCV 91.1 81.3 - 96.4 fL [facility] CH MCH 30.6 27.1 - 33.3 pg [facility] MCHC 33.6 32.3 - 35.7 g/dL [facility] RDW CV 14.1 11.1 - 14.9 % [facility] RDW SD 46.9 35.7 - 48.1 fL CERFORMERLY NAMED [facility] NRBC abs 0.00 0.00 - 0.01 K/cumm [facility] Blood 05/05/2021 12:[address] DESIGN ENGINEER 05/05/2021 12:[address] DESIGN ENGINEER Rhina Granados MD LAB BLOOD ORDERABLES Final R esult Performing Organization Address City/[facility]/ZIP Co de Phone Number [facility] [address] [place] [address] * (ABNORMAL) Basic metabolic panel (05/05/2021 12:[address] DESIGN ENGINEER) Sodium 142 135 - 145 mmol/L [facility] Potassium, pl 3.9 3.3 - 4.9 mmol/L [facility] Chloride 109 97 - 110 mmol/L [facility] CO2 24 22 - 32 mmol/L [facility] Anion gap 9 2 - 15 mmol/L [facility] BUN 7(L) 8 - 25 mg/dL [facility] Creatinine 0.51(L) 0.80 - 1.30 mg/dL [facility] Glucose 97 70 - 199 mg/dL [facility] Comment: [...] 2017. Calcium 8.4(L) 8.5 - 10.3 mg/dL [facility] Blood 05/05/2021 12:[address] DESIGN ENGINEER 05/05/2021 12:[address] DESIGN ENGINEER us Rhina Granados MD LAB BLOOD ORDERABLES Final R esult Performing Organization Address City/[facility]/ZIP Co de Phone Number [facility] [address] Department [place] [address] * POCT glucose (05/04/2021 11:[address] DESIGN ENGINEER) Glucose, POC 96 70 - 199 mg/dL [facility] Blood 05/04/2021 11:[address] DESIGN ENGINEER 05/04/2021 11:[address] DESIGN ENGINEER us Nalini Clayton MD LAB POCT ORDERABLES - DEVICE Fin al Result Performing Organization Address City/[facility] Co de Phone Number [facility] [address] [place] [address] * (ABNORMAL) Calcium, ionized (05/04/2021 11:[address] DESIGN ENGINEER) Ca, ionized, bld 4.48(L) 4.60 - 5.20 mg/dL [facility] Ca, ionized, bld, calc 4.53(L) 4.60 - 5.20 mg/dL [facility] Blood 05/04/2021 11:[address] DESIGN ENGINEER 05/05/2021 12:[address] DESIGN ENGINEER Rhina Granados MD LAB BLOOD ORDERABLES Final R esult Performing Organization Address City/[facility] Co de Phone Number [facility] [address] [facility] [place] [address] * (ABNORMAL) Blood gas, arterial (05/04/2021 11:[address] DESIGN ENGINEER) pH, Art 7.42 7.35 - 7.45 [facility] [...] [facility] Blood 05/04/2021 11:[address] DESIGN ENGINEER 05/05/2021 12:[address] DESIGN ENGINEER us Rhina Granados MD LAB BLOOD ORDERABLES Final R esult [facility] [address] [facility] [place] [address] * POCT glucose (05/04/2021 10:[address] DESIGN ENGINEER) Glucose, POC 122 70 - 199 mg/dL [facility] Blood 05/04/2021 10:[address] DESIGN ENGINEER 05/04/2021 10:[address] DESIGN ENGINEER Nalini Clayton MD LAB POCT ORDERABLES - DEVICE Fin al Result Performing Organization Address [facility] de Phone Number [facility] [address] [facility] [place] [address] * Prepare RBC: 1 Units (05/04/2021 9:[address] DESIGN ENGINEER) [facility] Product code [id number] [facility] Unit Number [id number] [facility] Product Blood Type APOS [facility] Dispense Status PRESUMED TRANSFUSED [facility] Blood 05/04/2021 9:[address] DESIGN ENGINEER Narrative [facility] - 05/05/2021 10:[address] DESIGN ENGINEER Are special requirements needed? (all products are leukoreduced)->No Date required:-[id number] LRRBC # of [id number] Reasons:-Active bleeding, Hgb <8 g/dL} Rhina Granados MD BLOOD BANK PRODUCT ORDERABLE S Final Result Performing Organization Address [facility] de Phone Number [facility] [address] [facility] [place] [address] * POCT glucose (05/04/2021 9:[address] DESIGN ENGINEER) [facility] Glucose, POC 139 70 - 199 mg/dL [facility] Blood 05/04/2021 9:[address] DESIGN ENGINEER 05/04/2021 9:[address] DESIGN ENGINEER Nalini Clayton MD LAB POCT ORDERABLES - DEVICE Fin al Result Performing Organization Address [facility] de Phone Number [facility] [address] [facility] [place] [address] * eGFR (05/04/2021 9:[address] DESIGN ENGINEER) [facility] eGFR 113 mL/min/1.7 3 m2 [facility] Comment: Interpretive Data Reference Interval Normal ?>/= [...] last reviewed 2020 Blood 05/04/2021 9:[address] DESIGN ENGINEER 05/04/2021 9:[address] DESIGN ENGINEER us Rhina Granados MD LAB BLOOD ORDERABLES Final R esult [facility] [address] [place] [address] * aPTT (05/04/2021 9:[address] DESIGN ENGINEER) aPTT 30 27 - 37 sec [facility] Comment: Interpretive Data Therapeutic heparin range: 60.0 - 94.0 seconds. Based on correlation with therapeutic heparin activity range of 0.3-0.7 Units/mL. Current interpretive data was last revised on 2020. Blood 05/04/2021 9:[address] DESIGN ENGINEER 05/04/2021 9:[address] DESIGN ENGINEER Rhina Granados MD LAB BLOOD ORDERABLES Final R esult Performing Organization Address [facility]/ZIP Co de Phone Number [facility] [address] [place] [address] * (ABNORMAL) Protime-INR (05/04/2021 9:[address] DESIGN ENGINEER) Pathologist [facility] PT 14.8(H) 9.5 - 13.6 sec [facility] INR 1.3(H) 0.9 - 1.2 [facility] Comment: Interpretive data Oral anticoagulant therapeutic ranges: Venous thromboembolism prophylaxis or treatment: 2.0-3.0 CARDIOLOGY Standard range: 2.0-3.0 High-intensity range: 2.5-3.5 Refer to indication-specific guidelines for appropriate target ranges for prosthetic heart valve replacement. Current interpretive data was last revised on 2019. Blood 05/04/2021 9:[address] DESIGN ENGINEER 05/04/2021 9:[address] DESIGN ENGINEER Rhina Granados MD LAB BLOOD ORDERABLES Final R esult Performing Organization Address [facility]/ZIP Co de Phone Number [facility] [address] [place] [address] * (ABNORMAL) CBC without differential (05/04/2021 9:[address] DESIGN ENGINEER) Pathologist [facility] WBC 19.0(H) 3.8 - 9.9 K/cumm [facility] Hgb 7.2(L) 13.0 - 17.5 g/dL [facility] Comment:Hemoglobin delta due to active bleeding. Hemoglobin delta due to surgical procedure. Hct 21.2(L) 38.9 - 50.3 % [facility] Plt 215 150 - 400 K/cumm [facility] MPV 10.9 9.1 - 12.3 fL [facility] RBC 2.34(L) 4.30 - 5.80 M/cumm [facility] MCV 90.6 81.3 - 96.4 fL [facility] MCH 30.8 27.1 - 33.3 pg [facility] MCHC 34.0 32.3 - 35.7 g/dL [facility] RDW CV 13.9 11.1 - 14.9 % [facility] RDW SD 46.4 35.7 - 48.1 fL [facility] NRBC abs 0.00 0.00 - 0.01 K/cumm [facility] Blood 05/04/2021 9:[address] DESIGN ENGINEER 05/04/2021 9:[address] DESIGN ENGINEER Rhina Granados MD LAB BLOOD ORDERABLES Final R esult Performing Organization Address City/[facility] Co de Phone Number [facility] [address] [place] [address] * Magnesium (05/04/2021 9:[address] DESIGN ENGINEER) Pathologist [facility] Magnesium 2.4 1.4 - 2.5 mg/dL [facility] Blood 05/04/2021 9:[address] DESIGN ENGINEER 05/04/2021 9:[address] DESIGN ENGINEER Rhina Granados MD LAB BLOOD ORDERABLES Final R esult Performing Organization Address [facility] de Phone Number [facility] [address] [place] [address] * (ABNORMAL) Basic metabolic panel (05/04/2021 9:[address] DESIGN ENGINEER) Sodium 141 135 - 145 mmol/L [facility] Potassium, pl 3.3 3.3 - 4.9 mmol/L [facility] Chloride 106 97 - 110 mmol/L [facility] CO2 26 22 - 32 mmol/L [facility] Anion gap 9 2 - 15 mmol/L [facility] BUN 7(L) 8 - 25 mg/dL [facility] Creatinine 0.56(L) 0.80 - 1.30 mg/dL [facility] Glucose 165 70 - 199 mg/dL [facility] Comment: Interpretive Data Fasting glucose >/= 126 [...] 2017. Calcium 7.7(L) 8.5 - 10.3 mg/dL [facility] Blood 05/04/2021 9:[address] DESIGN ENGINEER 05/04/2021 9:[address] DESIGN ENGINEER Rhina Granados MD LAB BLOOD ORDERABLES Final R esult Performing Organization Address [facility] Co de Phone Number [facility] [address] [place] [address] * (ABNORMAL) Blood gas, arterial (05/04/2021 9:[address] DESIGN ENGINEER) pH, Art 7.33(L) 7.35 - 7.45 [facility] [...] % [facility] Blood 05/04/2021 9:[address] DESIGN ENGINEER 05/04/2021 9:[address] DESIGN ENGINEER Rhina Granados MD LAB BLOOD ORDERABLES Final R esult Performing Organization Address [facility] Co de Phone Number [facility] [address] [place] [address] * (ABNORMAL) Calcium, ionized (05/04/2021 9:[address] DESIGN ENGINEER) Ca, ionized, bld 4.12(L) 4.60 - 5.20 mg/dL [facility] Ca, ionized, bld, calc 3.97(L) 4.60 - 5.20 mg/dL [facility] Blood 05/04/2021 9:[address] DESIGN ENGINEER 05/04/2021 9:[address] DESIGN ENGINEER us Rhina Granados MD LAB BLOOD ORDERABLES Final R esult [facility] [address] [place] [address] * XR Chest 1 Vw Portable (05/04/2021 8:[address] DESIGN ENGINEER) Anatomical Region Laterality Modality Body, Chest N/A Computed Radiogr aphy 05/05/2021 8:[address] DESIGN ENGINEER Impressions 05/05/2021 8:[address] DESIGN ENGINEER Tube placements with postsurgical changes with cardiomegaly with interstitial lung disease and mild failure with no pneumothorax. Electronically signed by: Deacon Cummings M.D. Narrative 05/05/2021 8:[address] DESIGN ENGINEER EXAMINATION: XR CHEST 1 VIEW DATE: 05/04/2021 8:40 PM HISTORY: 60-year-old man coronary artery bypass follow-up FINDINGS:Compared with the study of earlier the same day, postsurgical changes now evident within the heart and mediastinum with cardiomegaly. Interval placement of endotracheal tube, nasogastric tube, [place]ita-Radha catheter, left thoracostomy tube and mediastinal drain [...] Interval placement of endotracheal tube, nasogastric tube, Gu[place]ita-Radha catheter, left thoracostomy tube and mediastinal drain [...] * (ABNORMAL) POCT glucose (05/04/2021 8:[address] DESIGN ENGINEER) Glucose, POC 203(H) 70 - 199 mg/dL [facility] Blood 05/04/2021 8:[address] DESIGN ENGINEER 05/04/2021 8:[address] DESIGN ENGINEER us Nalini Clayton MD LAB POCT ORDERABLES - DEVICE Fin al Result [facility] [address] [facility] [place] [address] * Critical Care (05/04/2021 8:[address] DESIGN ENGINEER) Narrative Wally Aguilar DO - 05/04/2021 8:[address] DESIGN ENGINEER Wally Aguilar, ? 05/05/2021 12:46 AM Critical Care Performed [...] plan with the ICU team and other medical/program evaluation consultant staff, making frequent assessments and decisions [...] Transfuse cryoprecipitate (pooled units) (05/04/2021 8:[address] DESIGN ENGINEER) Blood specimen (specimen) Can Jones MD BLOOD TRANSFUSION ORD ERABLES Final Result Performing Organization Address [facility] Co de Phone Number [facility] [address] [place] [address] * Transfuse plasma (05/04/2021 7:[address] DESIGN ENGINEER) Blood specimen (specimen) Can Jones MD BLOOD TRANSFUSION ORD ERABLES Final Result [facility] [address] [place] [address] * Transfuse platelets (05/04/2021 7:[address] DESIGN ENGINEER) Blood specimen (specimen) Can Jones MD BLOOD TRANSFUSION ORD ERABLES Final Result Performing Organization Address [facility] Co de Phone Number [facility] [address] [place] [address] * (ABNORMAL) POC Blood Gas and Chemistries, Arterial - (05/04/2021 7:[address] DESIGN ENGINEER) pH, Art POC 7.32(L) 7.35 - 7.45 [...] g/dL [facility] Blood 05/04/2021 7:[address] DESIGN ENGINEER 05/04/2021 7:[address] DESIGN ENGINEER Nalini Clayton MD LAB POCT ORDERABLES - [place] [address] [address] [place] [address] * Prepare cryoprecipitate (pooled units): 2 Units (05/04/2021 6:[address] DESIGN ENGINEER) Pathologist [facility] Product code [id number] [facility] Unit Number [id number] [facility] Product Blood Type OPOS [facility] Dispense Status PRESUMED TRANSFUSED [facility] Product code [id number] [facility] Unit Number [id number] [facility] Product Blood Type APOS [facility] Dispense Status PRESUMED TRANSFUSED [facility] Blood (Blood, Venous) 05/04/2021 6:[address] DESIGN ENGINEER Narrative [facility] - 05/05/2021 10:[address] DESIGN ENGINEER Other indication->CABG with recent TURP Cryo # of [id number] Reasons:-Other (Specify)} us Rhina Granados MD BLOOD BANK PRODUCT [place] [address] [address] [place] [address] * (ABNORMAL) POC Blood Gas and Chemistries, Arterial - (05/04/2021 6:[address] DESIGN ENGINEER) pH, Art POC 7.34(L) 7.35 - 7.45 [...] g/dL [facility] Blood 05/04/2021 6:[address] DESIGN ENGINEER 05/04/2021 6:[address] DESIGN ENGINEER Nalini Clayton MD LAB POCT ORDERABLES - DEVICE Fin al Result Performing Organization Address [facility] Co de Phone Number [facility] [address] [facility] [place] [address] * Transfuse platelets (05/04/2021 6:[address] DESIGN ENGINEER) Blood specimen (specimen) Can Jones MD BLOOD TRANSFUSION ORD ERABLES Final Result Performing Organization Address [facility] Co de Phone Number [facility] [address] [facility] [place] [address] * Transfuse plasma (05/04/2021 6:[address] DESIGN ENGINEER) Blood specimen (specimen) Can Jones MD BLOOD TRANSFUSION ORD ERABLES Final Result Performing Organization Address [facility] Co de Phone Number [facility] [address] [place] [address] * (ABNORMAL) POC Blood Gas and Chemistries, Arterial - (05/04/2021 6:[address] DESIGN ENGINEER) pH, Art POC 7.36 7.35 - 7.45 [...] g/dL [facility] Blood 05/04/2021 6:[address] DESIGN ENGINEER 05/04/2021 6:[address] DESIGN ENGINEER Nalini Clayton MD LAB POCT ORDERABLES - DEVICE Fin al Result Performing Organization Address City/[facility]/ZIP Co de Phone Number [facility] [address] Department of [employer] [place], [place] [id number] * Platelet count (05/04/2021 5:[address] DESIGN ENGINEER) Plt 230 150 - 400 K/cumm [facility] Blood 05/04/2021 5:[address] DESIGN ENGINEER 05/04/2021 6:[address] DESIGN ENGINEER Rhina Granados MD LAB BLOOD ORDERABLES Final R esult Performing Organization Address [facility] de Phone Number [facility] [address] [place] [address] * (ABNORMAL) POC Blood Gas and Chemistries, Arterial - (05/04/2021 5:[address] DESIGN ENGINEER) pH, Art POC 7.37 7.35 - 7.45 [...] g/dL [facility] Blood 05/04/2021 5:[address] DESIGN ENGINEER 05/04/2021 5:[address] DESIGN ENGINEER us Nalini Clayton MD LAB POCT ORDERABLES - [place] [address] [address] Department [place] [address] * Prepare RBC: 4 Units (05/04/2021 5:[address] DESIGN ENGINEER) Pathologist [facility] Product code [id number] [facility] Unit Number [id number] 9-5 [facility] Product Blood Type APOS [facility] Dispense Status RETURNED [facility] Product code [id number] [facility] Unit Number [id number] 9-C [facility] Product Blood Type APOS [facility] Dispense Status RETURNED [facility] Product code [id number] [facility] Unit Number [id number] 6-Y [facility] Product Blood Type APOS [facility] Dispense Status RETURNED [facility] Product code [id number] [facility] Unit Number [id number] 3-* [facility] Product Blood Type APOS CERNER CH Dispense Status RETURNED CERNER CH Blood 05/04/2021 5:[address] DESIGN ENGINEER Narrative CERNER CH - 05/06/2021 12:[address] DESIGN ENGINEER Are special requirements needed? (all products are leukoreduced)->No Date required:-20210504 LRRBC # of [id number] Reasons:-Intra-op transfusion} us Rhina Granados MD BLOOD BANK PRODUCT ORDERABLE S Final Result [facility] [address] [place] [address] * Transfuse RBC (05/04/2021 5:[address] DESIGN ENGINEER) Blood specimen (specimen) Can Jones MD BLOOD TRANSFUSION ORD ERABLES Final Result [facility] [address] [place] [address] * (ABNORMAL) POC Blood Gas and Chemistries, Arterial - (05/04/2021 5:[address] DESIGN ENGINEER) pH, Art POC 7.34(L) 7.35 - 7.45 [...] g/dL CERNER CH Blood 05/04/2021 5:[address] DESIGN ENGINEER 05/04/2021 5:[address] DESIGN ENGINEER Nalini Clayton MD LAB POCT ORDERABLES - DEVICE Fin al Result [facility] [address] Department of [place], [place] [id number] * Transfuse RBC (05/04/2021 4:[address] DESIGN ENGINEER) Blood specimen (specimen) Can Jones MD BLOOD TRANSFUSION ORD ERABLES Final Result Performing Organization Address City/[facility]/ZIP Co de Phone Number [facility] [address] [place] [address] * (ABNORMAL) POC Blood Gas and Chemistries, Arterial - (05/04/2021 4:[address] DESIGN ENGINEER) pH, Art POC 7.33(L) 7.35 - 7.45 [...] g/dL [facility]ERNER CH Blood 05/04/2021 4:[address] DESIGN ENGINEER 05/04/2021 4:[address] DESIGN ENGINEER Nalini Clayton MD LAB POCT ORDERABLES - DEVICE Handy rogel Result [facility] [address] [place] [address] * (ABNORMAL) POC Blood Gas and Chemistries, Arterial - (05/04/2021 3:[address] DESIGN ENGINEER) pH, Art POC 7.29(L) 7.35 - 7.45 [...] g/dL CERNER CH Blood 05/04/2021 3:[address] DESIGN ENGINEER 05/04/2021 3:[address] DESIGN ENGINEER Nalini Clayton MD LAB POCT ORDERABLES - DEVICE Handy rogel Result [facility] DON [address] Department of [place], [place] [id number] * Prepare plasma: 2 Units (05/04/2021 3:[address] DESIGN ENGINEER) Product code [id number] CERNER [facility] Unit Number [id number] CERNER CH Product Blood Type APOS CERNER CH Dispense Status PRESUMED TRANSFUSED CERNER CH Product code [id number] CERNER CH Unit Number [id number] CERNER CH Product Blood Type APOS CERNER CH Dispense Status PRESUMED TRANSFUSED CERNER CH Blood (Blood, Venous) 05/04/2021 3:[address] DESIGN ENGINEER Narrative CERNER CH - 05/04/2021 10:[address] DESIGN ENGINEER Please have at least two thawed for end of case. ??Thank you! Specify Procedure:->CABG Date required:-20210504 FFP # of Units:-2-Units Reasons:-Hold for procedure (specify procedure)} us Rhina Granados MD BLOOD BANK PRODUCT [place] [address] Department [place] [address] * (ABNORMAL) POC Blood Gas and Chemistries, Arterial - (05/04/2021 2:[address] DESIGN ENGINEER) pH, Art POC 7.30(L) 7.35 - 7.45 [...] g/dL CERNER CH Blood 05/04/2021 2:[address] DESIGN ENGINEER 05/04/2021 2:[address] DESIGN ENGINEER Nalini Clayton MD LAB POCT ORDERABLES - DEVICE Fin al Result Performing Organization Address [facility] Co de Phone Number [facility] [address] Department of [place], [place] [id number] * POCT glucose (05/04/2021 11:[address] DESIGN ENGINEER) [facility] Glucose, POC 171 70 - 199 mg/dL CERNER CH Blood 05/04/2021 11:[address] DESIGN ENGINEER 05/04/2021 11:[address] DESIGN ENGINEER Nalini Clayton MD LAB POCT ORDERABLES - DEVICE Fin al Result Performing Organization Address [facility] Co de Phone Number [facility] [address] [place], [place] [id number] * Critical Care (05/04/2021 10:[address] DESIGN ENGINEER) Narrative Frank Dugan MD - 05/04/2021 10:[address] DESIGN ENGINEER Frank Dugan MD ? 05/04/2021 10:35 AM [...] plan with the ICU team and other medical/program evaluation consultant staff, making frequent assessments and decisions [...] (ABNORMAL) Urinalysis, microscopic only (05/04/2021 10:[address] DESIGN ENGINEER) WBC, ur 11-20(A) 0 - 5 /HPF CERNER RBC, ur >50(A) 0 - 2 /HPF [facility] Urine 05/04/2021 10:[address] DESIGN ENGINEER 05/04/2021 10:[address] DESIGN ENGINEER us Rhina Granados MD LAB URINE ORDERABLES Final R esult [facility] [address] Department [place] [address] * (ABNORMAL) Urinalysis reflex to microscopic (05/04/2021 10:[address] DESIGN ENGINEER) Color, ur Red(A) Yellow CERNER CH Clarity, ur Cloudy(A) Clear CERNER CH Specific gravity, ur 1.015 1.003 - 1.030 CERNER CH pH, urine 7.0 CERNER CH Protein, ur ql 3+(A) Negative CERNER CH Glucose, ur ql 3+(A) Negative CERNER CH Ketones, ur Trace Negative CERNER CH Bilirubin, ur Negative Negative CERNER CH Blood, ur 3+(A) Negative CERNER CH Urobilinogen, ur <2.0 <2.0 mg/dL CERNER CH Nitrite, ur Negative Negative CERNER CH Leukocyte esterase, ur Negative Negative CERNER CH UA reflex comment Reflex to microscopic UA will be performed. CERNER CH Urine 05/04/2021 10:[address] DESIGN ENGINEER 05/04/2021 10:[address] DESIGN ENGINEER Narrative CERNER CH - 05/04/2021 10:[address] DESIGN ENGINEER ?? Urine pH is affected by diet, medications, systemic acid-base disturbances, and renal tubular function. ??pH may affect urinary stone formation. ??For example, urine pH below 6.0 may help reduce the tendency for calcium phosphate stones and pH greater than 6.0 may reduce the tendency for uric acid stone formation. Source: [facility] [place]. Last revised 06-30-2017 us Rhina Granados MD LAB URINE ORDERABLES Final R esult Performing Organization Address [facility] Co de Phone Number [facility] DON [address] [place] [address] * (ABNORMAL) POCT glucose (05/04/2021 9:[address] DESIGN ENGINEER) Glucose, POC 214(H) 70 - 199 mg/dL CERNER CH Blood 05/04/2021 9:[address] DESIGN ENGINEER 05/04/2021 9:[address] DESIGN ENGINEER us Nalini Clayton MD LAB POCT ORDERABLES - DEVICE Fin al Result Performing Organization Address [facility] Co de Phone Number [facility] [address] [place] [address] * XR Chest 1 Vw Portable (05/04/2021 9:[address] DESIGN ENGINEER) Anatomical Region Laterality Modality Body, Chest N/A Computed Radiogr aphy 05/04/2021 9:[address] DESIGN ENGINEER Impressions 05/04/2021 9:[address] DESIGN ENGINEER Stable appearance. COPD cardiomegaly, with mild failure suspected. Electronically signed by: Deacon Cummings M.D. Narrative 05/04/2021 9:[address] DESIGN ENGINEER EXAMINATION: XR CHEST 1 VIEW DATE: 05/04/2021 [...] * (ABNORMAL) POCT glucose (05/04/2021 8:[address] DESIGN ENGINEER) Glucose, POC 265(H) 70 - 199 mg/dL [facility] Blood 05/04/2021 8:[address] DESIGN ENGINEER 05/04/2021 8:[address] DESIGN ENGINEER Nalini Clayton MD LAB POCT ORDERABLES - DEVICE Fin al Result [facility] [address] Department [place] [address] * (ABNORMAL) CBC without differential (05/04/2021 2:[address] DESIGN ENGINEER) Pathologist [facility] WBC 16.7(H) 3.8 - 9.9 K/cumm CERNER Hgb 10.2(L) 13.0 - 17.5 g/dL CERNER CH Hct 29.6(L) 38.9 - 50.3 % CERNER CH Plt 332 150 - 400 K/cumm CERNER MPV 12.0 9.1 - 12.3 fL CERNER RBC 3.25(L) 4.30 - 5.80 M/cumm CERNER CH MCV 91.1 81.3 - 96.4 fL CERNER MCH 31.4 27.1 - 33.3 pg CERNER MCHC 34.5 32.3 - 35.7 g/dL CERNER CH RDW CV 14.3 11.1 - 14.9 % CERNER CH RDW SD 47.9 35.7 - 48.1 fL CERNER NRBC abs 0.00 0.00 - 0.01 K/cumm CERNER Blood 05/04/2021 2:[address] DESIGN ENGINEER 05/04/2021 2:[address] DESIGN ENGINEER Narrative [facility] - 05/04/2021 2:[address] DESIGN ENGINEER Until heparin is discontinued. us Nalini Clayton MD LAB BLOOD ORDERABLES Final Resul t [facility] [address] Department [place] [address] * eGFR (05/04/2021 2:[address] DESIGN ENGINEER) Pathologist [facility] eGFR 112 mL/min/1.7 3 m2 CERNER Comment: Interpretive Data [...] last reviewed 2020 Blood 05/04/2021 2:[address] DESIGN ENGINEER 05/04/2021 2:[address] DESIGN ENGINEER Wally Aguilar DO LAB BLOOD ORDERABLES Fi nal Result Performing Organization Address City/[facility] Co de Phone Number [facility] [place] [address] [place] [address] * Protime-INR (05/04/2021 2:[address] DESIGN ENGINEER) PT 13.4 9.5 - 13.6 sec [facility] INR 1.2 0.9 - 1.2 [facility] Comment: Interpretive data Oral anticoagulant therapeutic ranges: Venous thromboembolism prophylaxis or treatment: 2.0-3.0 CARDIOLOGY Standard range: 2.0-3.0 High-intensity range: 2.5-3.5 Refer to indication-specific guidelines for appropriate target ranges for prosthetic heart valve replacement. Current interpretive data was last revised on 2019. Blood 05/04/2021 2:[address] DESIGN ENGINEER 05/04/2021 2:[address] DESIGN ENGINEER Rhina Granados MD LAB BLOOD ORDERABLES Final R esult Performing Organization Address City/[facility] Co de Phone Number SHARIFAMASON DON [address] [place] [address] * (ABNORMAL) aPTT (05/04/2021 2:[address] DESIGN ENGINEER) aPTT 57(H) 27 - 37 sec [facility] NAMED [facility] Comment: Interpretive Data Therapeutic heparin range: 60.0 - 94.0 seconds. Based on correlation with therapeutic heparin activity range of 0.3-0.7 Units/mL. Current interpretive data was last revised on 2020. Blood 05/04/2021 2:[address] DESIGN ENGINEER 05/04/2021 2:[address] DESIGN ENGINEER us Rhina Granados MD LAB BLOOD ORDERABLES Final R esult [facility] [address] [place] [address] * (ABNORMAL) Comprehensive metabolic panel (05/04/2021 2:[address] DESIGN ENGINEER) Sodium 131(L) 135 - 145 mmol/L [facility] Potassium, pl 4.0 3.3 - 4.9 mmol/L CERNER Chloride 100 97 - 110 mmol/L CERNER CO2 20(L) 22 - 32 mmol/L CERNER CH Anion gap 11 2 - 15 mmol/L [facility] BUN 7(L) 8 - 25 mg/dL [facility] Creatinine 0.58(L) 0.80 - 1.30 mg/dL CERNER Glucose 231(H) 70 - 199 mg/dL CERNER Comment: Interpretive [...] Calcium 8.5 8.5 - 10.3 mg/dL CERNER Bilirubin, total 0.4 0.1 - 1.2 mg/dL CERNER Protein, pl 5.8(L) 6.5 - 8.5 g/dL CERNER Albumin 3.1(L) 3.5 - 5.0 g/dL CERNER CH Alk phos 69 40 - 130 Units/L CERNER CH ALT 18 7 - 55 Units/L CERNER CH AST 50 10 - 50 Units/L [facility] Blood 05/04/2021 2:[address] DESIGN ENGINEER 05/04/2021 2:[address] DESIGN ENGINEER Wally Aguilar DO LAB BLOOD ORDERABLES Fi nal Result [facility] [address] [place] [address] * Magnesium (05/04/2021 2:[address] DESIGN ENGINEER) Pathologist [facility] Magnesium 1.6 1.4 - 2.5 mg/dL [facility] Blood 05/04/2021 2:[address] DESIGN ENGINEER 05/04/2021 2:[address] DESIGN ENGINEER Silviano Huddleston [employer] LAB BLOOD ORDERABLES Final Result Performing Organization Address [facility] de Phone Number [facility] [address] [place] [address] * Phosphorus (05/04/2021 2:[address] DESIGN ENGINEER) Phosphorus, pl 2.6 2.3 - 4.5 mg/dL [facility] Blood 05/04/2021 2:[address] DESIGN ENGINEER 05/04/2021 2:[address] DESIGN ENGINEER Silviano Huddleston [employer] LAB BLOOD ORDERABLES Final Result Performing Organization Address [facility] Co de Phone Number SHARIFAFORMERLY NAMED [facility] [address] [facility] [place] [address] * (ABNORMAL) POCT glucose (05/04/2021 2:[address] DESIGN ENGINEER) Glucose, POC 218(H) 70 - 199 mg/dL [facility] Blood 05/04/2021 2:[address] DESIGN ENGINEER 05/04/2021 2:[address] DESIGN ENGINEER Nalini Clayton MD LAB POCT ORDERABLES - DEVICE Fin al Result Performing Organization Address City/[facility] Co de Phone Number [facility] DON [address] [place] [address] * POCT glucose (05/03/2021 7:[address] DESIGN ENGINEER) Glucose, POC 161 70 - 199 mg/dL [facility] Blood 05/03/2021 7:[address] DESIGN ENGINEER 05/03/2021 7:[address] DESIGN ENGINEER Nalini Clayton MD LAB POCT ORDERABLES - DEVICE Handy rogel Result Performing Organization Address [facility] de Phone Number [facility] DON [address] [place] [address] * Critical Care (05/03/2021 7:[address] DESIGN ENGINEER) Narrative Wally Aguilar, - 05/03/2021 7:[address] DESIGN ENGINEER Wally Aguilar, DO ? 05/04/2021 12:13 AM Critical Care Performed by: Wally Aguilar DO Authorized by: Wally Aguilar, DO CRITICAL CARE: ??Team: ??CHNE ??Shift: ??PM [...] plan with the ICU team and other medical/program evaluation consultant staff, making frequent assessments and decisions [...] ORDER REJI Final Result * POCT glucose (05/03/2021 4:[address] DESIGN ENGINEER) Glucose, POC 177 70 - 199 mg/dL [facility] Blood 05/03/2021 4:[address] DESIGN ENGINEER 05/03/2021 4:[address] DESIGN ENGINEER Nalini Clayton MD LAB POCT ORDERABLES - DEVICE Fin al Result Performing Organization Address [facility] de Phone Number [facility] [address] [facility] [place] [address] * POCT glucose (05/03/2021 11:[address] DESIGN ENGINEER) Glucose, POC 108 70 - 199 mg/dL [facility] Blood 05/03/2021 11:[address] DESIGN ENGINEER 05/03/2021 11:[address] DESIGN ENGINEER Nalini Clayton MD LAB POCT ORDERABLES - DEVICE Fin al Result Performing Organization Address [facility] Co de Phone Number [facility] [address] [facility] [place] [address] * Prepare platelets: 2 Units (05/03/2021 9:[address] DESIGN ENGINEER) Product code [id number] [facility] Unit Number [id number] CERNER CH Product Blood Type APOS CERNER CH Dispense Status PRESUMED TRANSFUSED CERNER CH Product code V9040O98 CERNER CH Unit Number [id number] CERNER CH Product Blood Type ANEG CERNER CH Dispense Status PRESUMED TRANSFUSED CERNER CH Blood (Blood, Venous) 05/03/2021 9:[address] DESIGN ENGINEER Narrative SHARIFANER CH - 05/05/2021 10:[address] DESIGN ENGINEER Are special requirements needed? (all products are leukoreduced)->No Date required:-20210504 PLT # of Units:-2-Units Reasons:-Bleeding/pre-op with antiplatelet agent} Ainsley Rashid MD BLOOD BANK PRODUCT ORDER REJI Final Result [facility] DON [address] Department [place] [address] * Prepare RBC: 4 Units (05/03/2021 9:[address] DESIGN ENGINEER) [facility] Product code [id number] CERNER CH Unit Number [id number] CERNER CH Product Blood Type APOS CERNER CH Dispense Status PRESUMED TRANSFUSED CERNER CH Product code A6256O50 CERNER CH Unit Number [id number] CERNER CH Product Blood Type APOS CERNER CH Dispense Status PRESUMED TRANSFUSED CERNER CH Product code B2688E30 CERNER CH Unit Number [id number] CERNER CH Product Blood Type APOS CERNER CH Dispense Status PRESUMED TRANSFUSED CERNER CH Product code [id number] CERNER CH Unit Number [id number] CERNER CH Product Blood Type APOS CERNER CH Dispense Status PRESUMED TRANSFUSED CERNER CH Blood 05/03/2021 9:[address] DESIGN ENGINEER Narrative SHARIFANER CH - 05/05/2021 10:[address] DESIGN ENGINEER Specify Procedure:->cabg Are special requirements needed? (all products are leukoreduced)->No Date required:-20210504 LRRBC # of [id number] Reasons:-Hold for procedure (specify procedure)} Ainsley Rashid MD BLOOD BANK PRODUCT ORDER REJI Final Result Performing Organization Address City/State/ZIP Co fl Phone Number [facility] DON [address] [place] [address] * Critical Care (05/03/2021 9:[address] DESIGN ENGINEER) Narrative Frank Dugan MD - 05/03/2021 9:[address] DESIGN ENGINEER Frank Dugan MD ? 05/03/2021 ??9:24 AM [...] plan with the ICU team and other medical/program evaluation consultant staff, making frequent assessments and decisions [...] Result * POCT glucose (05/03/2021 7:[address] DESIGN ENGINEER) Glucose, POC 104 70 - 199 mg/dL [facility] Blood 05/03/2021 7:[address] DESIGN ENGINEER 05/03/2021 7:[address] DESIGN ENGINEER us Nalini Clayton MD LAB POCT ORDERABLES - DEVICE Fin al Result [facility] [address] [place] [address] * eGFR (05/03/2021 4:[address] DESIGN ENGINEER) eGFR 118 mL/min/1.7 3 m2 [facility] Comment: Interpretive Data Reference Interval Normal ?>/= [...] last reviewed 2020 Blood 05/03/2021 4:[address] DESIGN ENGINEER 05/03/2021 4:[address] DESIGN ENGINEER Wally Aguilar DO LAB BLOOD ORDERABLES Fi nal Result Performing Organization Address [facility] Co de Phone Number [facility] [address] [place] [address] * (ABNORMAL) CBC without differential (05/03/2021 4:[address] DESIGN ENGINEER) WBC 16.4(H) 3.8 - 9.9 K/cumm CERNER [...] SD 48.8(H) 35.7 - 48.1 fL CERNER CH NRBC abs 0.00 0.00 - 0.01 K/cumm CERNER CH Blood 05/03/2021 4:[address] DESIGN ENGINEER 05/03/2021 4:[address] DESIGN ENGINEER Narrative CERNER CH - 05/03/2021 4:[address] DESIGN ENGINEER Until heparin is discontinued. Nalini Clayton MD LAB BLOOD ORDERABLES Final Resul t Performing Organization Address City/[facility]/ZIP Co de Phone Number [facility] DON [address] [place] [address] * (ABNORMAL) Comprehensive metabolic panel (05/03/2021 4:[address] DESIGN ENGINEER) Sodium 136 135 - 145 mmol/L CERNER [...] Units/L CERNER CH Blood 05/03/2021 4:[address] DESIGN ENGINEER 05/03/2021 4:[address] DESIGN ENGINEER us Wally Aguilar DO LAB BLOOD ORDERABLES Fi nal Result [facility] [address] [place] [address] * Magnesium (05/03/2021 4:[address] DESIGN ENGINEER) Magnesium 1.7 1.4 - 2.5 mg/dL [facility] CH Blood 05/03/2021 4:[address] DESIGN ENGINEER 05/03/2021 4:[address] DESIGN ENGINEER Silviano Huddleston [employer] LAB BLOOD ORDERABLES Final Result Performing Organization Address [facility] de Phone Number [facility] DON [address] [facility] [place] [address] * Phosphorus (05/03/2021 4:[address] DESIGN ENGINEER) Phosphorus, pl 3.1 2.3 - 4.5 mg/dL [facility] Blood 05/03/2021 4:[address] DESIGN ENGINEER 05/03/2021 4:[address] DESIGN ENGINEER Silviano Huddleston [employer] LAB BLOOD ORDERABLES Final Result Performing Organization Address [facility] de Phone Number SHARIFAMASON DON [address] [facility] [place] [address] * (ABNORMAL) aPTT (05/03/2021 4:[address] DESIGN ENGINEER) aPTT 64(H) 27 - 37 sec [facility] Comment: Interpretive Data Therapeutic heparin range: 60.0 - 94.0 seconds. Based on correlation with therapeutic heparin activity range of 0.3-0.7 Units/mL. Current interpretive data was last revised on 2020. Blood 05/03/2021 4:[address] DESIGN ENGINEER 05/03/2021 4:[address] DESIGN ENGINEER Ainsley Rashid MD LAB BLOOD ORDERABLES Fin al Result Performing Organization Address [facility] de Phone Number [facility] DON [address] [place] [address] * (ABNORMAL) Hemoglobin A1c (05/03/2021 4:[address] DESIGN ENGINEER) Hgb A1C 13.5(H) 4.0 - 5.6 % [facility] Estimated Average Glucose 341 mg/dL [facility] Comment: The ADA recommends reporting an estimated Average Glucose (eAG) with all Hemoglobin A1c results using the equation derived from a study of 507 normal and diabetic adults. ??Minority populations were underrepresented and children were not included. ?? (Diabetes Care 31:1520-0222, 2008). ??The eAG is not equivalent to a fasting glucose. Blood 05/03/2021 4:[address] DESIGN ENGINEER 05/03/2021 4:[address] DESIGN ENGINEER us Erika Suárez NP LAB BLOOD ORDERABLES Final R esult [facility] [address] [facility] [place] [address] * Critical Care (05/02/2021 8:[address] DESIGN ENGINEER) Narrative Wally Aguilar, - 05/02/2021 8:[address] DESIGN ENGINEER Wally Aguilar, DO ? 05/02/2021 10:37 PM Critical Care Performed by: Wally Aguilar, Authorized by: Wally Aguilar, CRITICAL CARE: ??Team: ??CHNE ??Shift: ??PM ??Level [...] plan with the ICU team and other medical/program evaluation consultant staff, making frequent assessments and decisions [...] Final Result * eGFR (05/02/2021 7:[address] DESIGN ENGINEER) [facility] eGFR 110 mL/min/1.7 3 m2 [facility] DON Comment: Interpretive [...] last reviewed 2020 Blood 05/02/2021 7:[address] DESIGN ENGINEER 05/02/2021 8:[address] DESIGN ENGINEER Wally Aguilar DO LAB BLOOD ORDERABLES Fi nal Result [facility] [address] [place] [address] * Magnesium (05/02/2021 7:[address] DESIGN ENGINEER) Magnesium 1.6 1.4 - 2.5 mg/dL [facility] NAMED [facility] Blood 05/02/2021 7:[address] DESIGN ENGINEER 05/02/2021 8:[address] DESIGN ENGINEER Wally Aguilar DO LAB BLOOD ORDERABLES nal Result Performing Organization Address City/[facility] Co de Phone Number [facility] [address] [place] [address] * (ABNORMAL) Basic metabolic panel (05/02/2021 7:[address] DESIGN ENGINEER) Pathologist [facility] Sodium 135 135 - 145 mmol/L [facility] Potassium, pl 3.6 3.3 - 4.9 mmol/L [facility] Chloride 103 97 - 110 mmol/L [facility] CO2 21(L) 22 - 32 mmol/L [facility] Anion gap 11 2 - 15 mmol/L [facility] BUN 6(L) 8 - 25 mg/dL [facility] Creatinine 0.60(L) 0.80 - 1.30 mg/dL [facility] Glucose 148 70 - 199 mg/dL [facility] Comment: Interpretive Data Fasting glucose >/= 126 [...] 2017. Calcium 8.4(L) 8.5 - 10.3 mg/dL [facility] Blood 05/02/2021 7:[address] DESIGN ENGINEER 05/02/2021 8:[address] DESIGN ENGINEER Wally Aguilar LAB BLOOD ORDERABLES Fi nal Result [facility] [address] [place] [address] * (ABNORMAL) CBC without differential (05/02/2021 7:[address] DESIGN ENGINEER) WBC 16.5(H) 3.8 - 9.9 K/cumm [facility] Hgb 10.4(L) 13.0 - 17.5 g/dL [facility] Comment:Hemoglobin delta due to apparent blood transfusion. Hct 30.7(L) 38.9 - 50.3 % [facility] Plt 317 150 - 400 K/cumm [facility] MPV 11.9 9.1 - 12.3 fL [facility] RBC 3.38(L) 4.30 - 5.80 M/cumm [facility] MCV 90.8 81.3 - 96.4 fL [facility] MCH 30.8 27.1 - 33.3 pg [facility] MCHC 33.9 32.3 - 35.7 g/dL [facility] RDW CV 14.0 11.1 - 14.9 % [facility] RDW SD 47.1 35.7 - 48.1 fL [facility] NRBC abs 0.00 0.00 - 0.01 K/cumm [facility] Blood 05/02/2021 7:[address] DESIGN ENGINEER 05/02/2021 8:[address] DESIGN ENGINEER Wally Aguilar DO LAB BLOOD ORDERABLES Fi nal Result [facility] [address] [place] [address] * Transfuse RBC (05/02/2021 7:[address] DESIGN ENGINEER) Blood specimen (specimen) Balta Ahn MD BLOOD TRANSFUSION ORDERABLES E dited Result - Final [facility] [address] [place] [address] * Transfuse RBC: 1 Units (05/02/2021 7:[address] DESIGN ENGINEER) Blood specimen (specimen) Balta Ahn MD BLOOD TRANSFUSION ORDERABLES E dited Result - Final * POCT glucose (05/02/2021 5:[address] DESIGN ENGINEER) Glucose, POC 102 70 - 199 mg/dL [facility] Blood 05/02/2021 5:[address] DESIGN ENGINEER 05/02/2021 5:[address] DESIGN ENGINEER Nalini Clayton MD LAB POCT ORDERABLES - DEVICE Fin al Result Performing Organization Address [facility] Co de Phone Number SHARIFAMASON FLORENCIA [address] [place] [address] * Prepare RBC: 1 Units (05/02/2021 3:[address] DESIGN ENGINEER) Product code [id number] [facility] Unit Number [id number] [facility] Product Blood Type APOS [facility] Dispense Status PRESUMED TRANSFUSED [facility] Blood 05/02/2021 3:[address] DESIGN ENGINEER Narrative [facility] - 05/02/2021 10:[address] DESIGN ENGINEER Are special requirements needed? (all products are leukoreduced)->No Date required:-[id number] LRRBC # of [id number] Reasons:-Cardiovascular disease, Hgb <8 g/dL} Balta Ahn MD BLOOD BANK PRODUCT ORDERABLES Final Result Performing Organization Address City/[facility]/ZIP Co de Phone Number HENRIK DON [address] [place] [address] * (ABNORMAL) CBC without differential (05/02/2021 3:[address] DESIGN ENGINEER) WBC 14.7(H) 3.8 - 9.9 K/cumm [facility] Hgb 7.2(L) 13.0 - 17.5 g/dL [facility] Hct 21.4(L) 38.9 - 50.3 % [facility] Plt 242 150 - 400 K/cumm [facility] MPV 11.6 9.1 - 12.3 fL [facility] RBC 2.27(L) 4.30 - 5.80 M/cumm [facility] MCV 94.3 81.3 - 96.4 fL [facility] MCH 31.7 27.1 - 33.3 pg [facility] MCHC 33.6 32.3 - 35.7 g/dL [facility] RDW CV 13.6 11.1 - 14.9 % [facility] RDW SD 46.9 35.7 - 48.1 fL [facility] NRBC abs 0.00 0.00 - 0.01 K/cumm [facility] Blood 05/02/2021 3:[address] DESIGN ENGINEER 05/02/2021 3:[address] DESIGN ENGINEER us Joe Weinberg MD LAB BLOOD ORDERABLES Final Resul t [facility] [address] [place] [address] * Critical Care (05/02/2021 2:[address] DESIGN ENGINEER) Narrative Frank Dugan MD - 05/02/2021 2:[address] DESIGN ENGINEER Frank Dugan MD ? 05/02/2021 ??3:26 PM [...] plan with the ICU team and other medical/program evaluation consultant staff, making frequent assessments and decisions [...] Final * POCT glucose (05/02/2021 11:[address] DESIGN ENGINEER) Pathologist [facility] Glucose, POC 110 70 - 199 mg/dL [facility] Blood 05/02/2021 11:[address] DESIGN ENGINEER 05/02/2021 11:[address] DESIGN ENGINEER Nalini Clayton MD LAB POCT ORDERABLES - DEVICE Fin al Result [facility] [address] [place] [address] * COVID-19 Coronavirus RNA Nasopharyngeal (05/02/2021 11:[address] DESIGN ENGINEER) [facility] COVID-19 RNA Negative Negative [facility] Comment: Interpretive data: Synonyms for this test include: PCR and NAAT . ??This test is performed using the Needle HR Xpert Xpress assay. This is a real-time [...] 24, 2020. First COVID-19 test? Yes [facility] Employeed in healthcare? No [facility] Group care resident? No [facility] Hospitalized? Yes [facility] Is patient in ICU? Yes [facility] Symptomatic as defined by CDC? No [facility] Nasopharyngeal 05/02/2021 11 :[address] DESIGN ENGINEER 05/02/2021 11:[address] DESIGN ENGINEER Narrative [facility] - 05/02/2021 12:[address] DESIGN ENGINEER What is the reason for testing?->Screening prior to urgent surgery, procedure, BMT, immunosuppressive therapy us Rhina Granados MD LAB MICROBIOLOGY - GENERAL O RDERABLES Final Result Performing Organization Address City/[facility]/ZIP Co de Phone Number HENRIK DON [address] [place] [address] * (ABNORMAL) aPTT (05/02/2021 11:[address] DESIGN ENGINEER) aPTT 61(H) 27 - 37 sec [facility] Comment: Interpretive Data Therapeutic heparin range: 60.0 - 94.0 seconds. Based on correlation with therapeutic heparin activity range of 0.3-0.7 Units/mL. Current interpretive data was last revised on 2020. Blood 05/02/2021 11:[address] DESIGN ENGINEER 05/02/2021 11:[address] DESIGN ENGINEER us Loree Enciso NP LAB BLOOD ORDERABLES F inal Result Performing Organization Address City/[facility]/ZIP Co de Phone Number [facility]RIK DON [address] [place] [address] * TRANSTHORACIC ECHO (TTE) COMPLETE W DOPPLER/CF WO CONTRAST (05/02/2021 9:[address] DESIGN ENGINEER) Anatomical Region Laterality Modality Ultrasound 05/02/2021 8:[address] DESIGN ENGINEER Narrative 05/02/2021 2:[address] [place] [address] Echocardiogram Report Patient Name: DEEPAK ALVARADO W : 1960 Study Date: 05/02/2021 8:50:02 AM Gender: M Tech: Location: [id number] Ref Provider: NALINI CLAYTONHeight(Cm): 175 BSA: 2.11 [...] valve. Electronically Signed By: Rylee Brito DO, VILMA GODINEZ FASNC 2021-05-02 14:07:25 ROAD DESIGN ENGINEER CC: CC: CC: Procedure Note Rylee Brito DO - 05/02/2021 [place] [address] Echocardiogram Report Patient Name: DEEPAK ALVARADO, WPatient ID: [id number] : [id number] Date: 05/02/2021 8:50:02 AM Gender: Winsomecession #: [id number] Tech: SRLocation: [id number] Ref Provider: NALINI CLAYTONHeight(Cm): 175 BSA: 2.11Weight(Kg): 92 Heart Rate: 89BP: [...] - 100 ] msec MVA2.20 MV Decel [id number] [ 104 - 258 ] msec PV [...] valve. Electronically Signed By: Rylee Brito DO, VILMA GODINEZ FASNC 2021-05-02 14:07:25 ROAD DESIGN ENGINEER CC: CC: CC: us Nalini Clayton MD CV ECHO PROCEDURES Final Result * POCT glucose (05/02/2021 8:[address] DESIGN ENGINEER) Glucose, POC 117 70 - 199 mg/dL [facility] Blood 05/02/2021 8:[address] DESIGN ENGINEER 05/02/2021 8:[address] DESIGN ENGINEER Nalini Clayton MD LAB POCT ORDERABLES - DEVICE Fin al Result [facility] DON [address] [place] [address] * XR Chest 1 Vw Portable (05/02/2021 5:[address] DESIGN ENGINEER) Anatomical Region Laterality Modality Body, Chest N/A Computed Radiogr aphy 05/02/2021 6:[address] DESIGN ENGINEER Impressions 05/02/2021 6:[address] DESIGN ENGINEER 1. ??Appropriately positioned intra-aortic balloon pump. 2. ??Similar mixed reticular and alveolar opacities most notable in the bilateral upper lobes and perihilar region. Electronically signed by: Richard Lopez II, D.O. Narrative 05/02/2021 6:[address] DESIGN ENGINEER EXAMINATION: XR CHEST 1 VIEW DATE: 05/02/2021 5:15 AM INDICATION: Intra-aortic balloon pump. COMPARISON: 05/01/2021. FINDINGS: Appropriately positioned intra-aortic balloon pump appears unchanged. No pneumothorax or pleural effusion. ??Mixed reticular and alveolar opacities demonstrated in all lung lobes appear most significant in the upper lobes and perihilar regions, unchanged. ?? Procedure Note Richard Lopez II, - 05/02/2021 [...] Result * POCT glucose (05/02/2021 4:[address] DESIGN ENGINEER) Glucose, POC 106 70 - 199 mg/dL [facility] Blood 05/02/2021 4:[address] DESIGN ENGINEER 05/02/2021 4:[address] DESIGN ENGINEER Nalini Clayton MD LAB POCT ORDERABLES - DEVICE Fin al Result [facility] [address] [place] [address] * eGFR (05/02/2021 4:[address] DESIGN ENGINEER) eGFR 110 mL/min/1.7 3 m2 [facility] Comment: Interpretive Data Reference Interval Normal ?>/= [...] last reviewed 2020 Blood 05/02/2021 4:[address] DESIGN ENGINEER 05/02/2021 4:[address] DESIGN ENGINEER Nalini Clayton MD LAB BLOOD ORDERABLES Final Resul t Performing Organization Address [facility] Co de Phone Number HENRIK DON [address] [facility] [place] [address] * (ABNORMAL) Troponin T high-sensitivity 6-hour (05/02/2021 4:[address] DESIGN ENGINEER) Trop T hs 6,777(C) <=22 ng/L [facility] Comment: Critical Result called to and read back by Persistent abnormal result, DATE: 2021-05-02 05:30:44 BY: [place] Interpretive Data For further hscTnT resources including the diagnostic algorithm and an aid in interpretation, copy and paste this link: [email or web address].testcatalog.org/show/[email or web address] Current Interpretive Data last revised 2020. Trop T hs pct delta 16 % [facility] Trop T hs interp Equivocal [facility] Blood 05/02/2021 4:[address] DESIGN ENGINEER 05/02/2021 4:[address] DESIGN ENGINEER Nalini Clayton MD LAB BLOOD ORDERABLES Final Resul t Performing Organization Address [facility] de Phone Number HENRIK DON [address] [place] [address] * (ABNORMAL) Basic metabolic panel (05/02/2021 4:[address] DESIGN ENGINEER) Sodium 135 135 - 145 mmol/L [facility] Potassium, pl 3.3 3.3 - 4.9 mmol/L [facility] Chloride 106 97 - 110 mmol/L [facility] CO2 21(L) 22 - 32 mmol/L [facility] Anion gap 8 2 - 15 mmol/L [facility] BUN 8 8 - 25 mg/dL [facility] Creatinine 0.60(L) 0.80 - 1.30 mg/dL [facility] Glucose 106 70 - 199 mg/dL [facility] Comment: Interpretive Data Fasting glucose >/= [...] 2017. Calcium 8.4(L) 8.5 - 10.3 mg/dL [facility] Blood 05/02/2021 4:[address] DESIGN ENGINEER 05/02/2021 4:[address] DESIGN ENGINEER us Rhina Granados MD LAB BLOOD ORDERABLES Final R esult [facility] [address] [place] [address] * (ABNORMAL) CBC without differential (05/02/2021 4:[address] DESIGN ENGINEER) WBC 18.3(H) 3.8 - 9.9 K/cumm [facility] Hgb 9.6(L) 13.0 - 17.5 g/dL [facility] Hct 29.3(L) 38.9 - 50.3 % [facility] Plt 313 150 - 400 K/cumm [facility] MPV 11.5 9.1 - 12.3 fL [facility] RBC 3.09(L) 4.30 - 5.80 M/cumm [facility] MCV 94.8 81.3 - 96.4 fL [facility] MCH 31.1 27.1 - 33.3 pg [facility] MCHC 32.8 32.3 - 35.7 g/dL [facility] RDW CV 13.3 11.1 - 14.9 % [facility] RDW SD 46.5 35.7 - 48.1 fL [facility] NRBC abs 0.00 0.00 - 0.01 K/cumm [facility] Blood 05/02/2021 4:[address] DESIGN ENGINEER 05/02/2021 4:[address] DESIGN ENGINEER Narrative [facility] - 05/02/2021 5:[address] DESIGN ENGINEER Until heparin is discontinued. Nalini Clayton MD LAB BLOOD ORDERABLES Final Resul t Performing Organization Address [facility] Co de Phone Number HENRIK DON [address] [place], [place] [id number] * (ABNORMAL) Troponin T high-sensitivity 4-hour (05/02/2021 2:[address] DESIGN ENGINEER) Trop T hs 7,050(C) <=22 ng/L HENRIK [...] BY: Mila Herrmann Blood 05/02/2021 2:[address] DESIGN ENGINEER 05/02/2021 2:[address] DESIGN ENGINEER Nalini Clayton MD LAB BLOOD ORDERABLES Final Resul t Performing Organization Address [facility] Co de Phone Number HENRIK DON [address] [place] [address] * (ABNORMAL) Troponin T high-sensitivity 2-hour (05/02/2021 12:[address] DESIGN ENGINEER) Trop T hs 7,281(C) <=22 ng/L [facility] Comment: Critical Result called to and read back by Mani Talbert, DATE: 2021-05-02 01:17:12 BY: [place] Interpretive Data For further hscTnT resources including the diagnostic algorithm and an aid in interpretation, copy and paste this link: [email or web address].testcatalog.org/show/[email or web address] Current Interpretive Data last revised 2020. Trop T hs pct delta 24(C) % [facility] DON Comment:Critical Result call ed to and read back by Mani Diegoabrahamjoanne, DATE: 2021-05-02 01:17:12 BY: [place] Trop T hs interp Significa nt(C) [facility] DON Comment:Critical Result call ed to and read back by Mani Diegomarcel, DATE: 2021-05-02 01:17:12 BY: [place] Blood 05/02/2021 12:[address] DESIGN ENGINEER 05/02/2021 12:[address] DESIGN ENGINEER us Nalini Clayton MD LAB BLOOD ORDERABLES Final Resul t Performing Organization Address [facility] de Phone Number HENRIK [address] [place] [address] * (ABNORMAL) aPTT (05/02/2021 12:[address] DESIGN ENGINEER) aPTT 70(H) 27 - 37 sec [facility] Comment: Interpretive Data Therapeutic heparin range: 60.0 - 94.0 seconds. Based on correlation with therapeutic heparin activity range of 0.3-0.7 Units/mL. Current interpretive data was last revised on 2020. Blood 05/02/2021 12:[address] DESIGN ENGINEER 05/02/2021 12:[address] DESIGN ENGINEER us Nalini Clayton MD LAB BLOOD ORDERABLES Final Resul t Performing Organization Address [facility] de Phone Number HENRIK [address] [place] [address] * (ABNORMAL) Lipid panel (05/02/2021 12:[address] DESIGN ENGINEER) Cholesterol 139 30 - 199 mg/dL HENRIK [...] on 2018. Triglycerides 105 <=149 mg/dL [facility] DON Comment: Interpretive Data [...] on 2018. HDL 33(L) >=40 mg/dL [facility] DON Comment: Interpretive Data [...] on 2018. Non-HDL Cholesterol 106 mg/dL [facility] Comment: Interpretive Data Ages < [...] last revised on 2018. Chol/HDL ratio 4 [facility] Blood 05/02/2021 12:[address] DESIGN ENGINEER 05/02/2021 12:[address] DESIGN ENGINEER us Nalini Clayton MD LAB BLOOD ORDERABLES Final Resul t Performing Organization Address [facility] Co de Phone Number HENRIK DON [address] [facility] [place] [address] * Type and screen (05/02/2021 12:[address] DESIGN ENGINEER) ABO Rh A Positive [facility] [place], indirect Negative [facility] Blood 05/02/2021 12:[address] DESIGN ENGINEER 05/02/2021 12:[address] DESIGN ENGINEER Narrative [facility] - 05/02/2021 1:[address] DESIGN ENGINEER Has the patient had Daratumumab or Isatuximab in the past 6 months?->Unknown Nalini Clayton MD LAB BLOOD BANK TEST ORDERABLES F inal Result Performing Organization Address [facility] de Phone Number HENRIK DON [address] [place] [address] * eGFR (05/01/2021 10:[address] DESIGN ENGINEER) eGFR 108 mL/min/1.7 3 m2 [facility] Comment: Interpretive [...] reviewed 2020 Blood 05/01/2021 10:[address] DESIGN ENGINEER 05/01/2021 11:[address] DESIGN ENGINEER Wally Aguilar DO LAB BLOOD ORDERABLES Fi nal Result [facility] [address] [place] [address] * (ABNORMAL) Differential, auto (05/01/2021 10:[address] DESIGN ENGINEER) Neutrophil abs 11.5(H) 1.7 - 6.5 K/cumm [facility] Imm gran abs 0.1 0.0 - 0.1 K/cumm [facility] Lymphocyte abs 2.4 0.8 - 3.3 K/cumm [facility] Monocyte abs 1.5(H) 0.2 - 0.8 K/cumm [facility] Eosinophil abs 0.1 0.0 - 0.5 K/cumm [facility] Basophil abs 0.1 0.0 - 0.1 K/cumm [facility] Neutrophil pct 73.4 % [facility] Comment: Interpretive Data Percent cell count reference ranges are not reported, since discordance with absolute values may lead to misinterpretation of CBC data. Current Interpretive Data was last revised on 2017. Imm gran pct 0.4 % [facility] Comment: Interpretive Data Percent cell count reference ranges are not reported, since discordance with absolute values may lead to misinterpretation of CBC data. Current Interpretive Data was last revised on 2017. Lymphocyte pct 15.5 % [facility] Comment: Interpretive Data Percent cell count reference ranges are not reported, since discordance with absolute values may lead to misinterpretation of CBC data. Current Interpretive Data was last revised on 2017. Monocyte pct 9.8 % [facility] Comment: Interpretive Data Percent cell count reference ranges are not reported, since discordance with absolute values may lead to misinterpretation of CBC data. Current Interpretive Data was last revised on 2017. Eosinophil pct 0.6 % [facility] Comment: Interpretive Data Percent cell count reference ranges are not reported, since discordance with absolute values may lead to misinterpretation of CBC data. Current Interpretive Data was last revised on 2017. Basophil pct 0.3 % [facility] Comment: Interpretive Data Percent cell count reference ranges are not reported, since discordance with absolute values may lead to misinterpretation of CBC data. Current Interpretive Data was last revised on 2017. Blood 05/01/2021 10:[address] DESIGN ENGINEER 05/01/2021 10:[address] DESIGN ENGINEER Wally Aguilar DO LAB BLOOD ORDERABLES Fi nal Result Performing Organization Address [facility] Co de Phone Number HENRIK [address] [place] [address] * (ABNORMAL) aPTT (05/01/2021 10:[address] DESIGN ENGINEER) aPTT 82(H) 27 - 37 sec [facility] Comment: Interpretive Data Therapeutic heparin range: 60.0 - 94.0 seconds. Based on correlation with therapeutic heparin activity range of 0.3-0.7 Units/mL. Current interpretive data was last revised on 2020. Blood 05/01/2021 10:[address] DESIGN ENGINEER 05/01/2021 10:[address] DESIGN ENGINEER Narrative [facility] - 05/01/2021 11:[address] DESIGN ENGINEER Unless preformed in the last 48 hours. Draw prior to heparin administration. Nalini Clayton MD LAB BLOOD ORDERABLES Final Resul t Performing Organization Address City/[facility]/ZIP Co de Phone Number SHARIFAMASON DON [address] [place] [address] * (ABNORMAL) Protime-INR (05/01/2021 10:[address] DESIGN ENGINEER) PT 14.5(H) 9.5 - 13.6 sec [facility] INR 1.3(H) 0.9 - 1.2 [facility] Comment: Interpretive data Oral anticoagulant therapeutic ranges: Venous thromboembolism prophylaxis or treatment: 2.0-3.0 CARDIOLOGY Standard range: 2.0-3.0 High-intensity range: 2.5-3.5 Refer to indication-specific guidelines for appropriate target ranges for prosthetic heart valve replacement. Current interpretive data was last revised on 2019. Blood 05/01/2021 10:[address] DESIGN ENGINEER 05/01/2021 10:[address] DESIGN ENGINEER Narrative [facility] DON - 05/01/2021 11:[address] DESIGN ENGINEER Unless preformed in the last 48 hours. Draw prior to heparin administration. us Nalini Clayton MD LAB BLOOD ORDERABLES Final Resul t [facility] DON [address] [place] [address] * Pro B-type natriuretic peptide (05/01/2021 10:[address] DESIGN ENGINEER) NT-proBNP 168 <=300 pg/mL [facility] DON Comment: Interpretive Comments: [...] Date: 2018. Blood 05/01/2021 10:[address] DESIGN ENGINEER 05/01/2021 10:[address] DESIGN ENGINEER Wally Aguilar DO LAB BLOOD ORDERABLES Fi nal Result [facility] [address] [place] [address] * (ABNORMAL) CBC with auto differential (05/01/2021 10:[address] DESIGN ENGINEER) WBC 15.7(H) 3.8 - 9.9 K/cumm [facility] Hgb 9.4(L) 13.0 - 17.5 g/dL [facility] Hct 28.2(L) 38.9 - 50.3 % [facility] Plt 312 150 - 400 K/cumm [facility] MPV 12.0 9.1 - 12.3 fL [facility] RBC 2.95(L) 4.30 - 5.80 M/cumm [facility] MCV 95.6 81.3 - 96.4 fL [facility] MCH 31.9 27.1 - 33.3 pg [facility] MCHC 33.3 32.3 - 35.7 g/dL [facility] RDW CV 13.2 11.1 - 14.9 % [facility] RDW SD 46.6 35.7 - 48.1 fL [facility] NRBC abs 0.00 0.00 - 0.01 K/cumm [facility] Blood 05/01/2021 10:[address] DESIGN ENGINEER 05/01/2021 10:[address] DESIGN ENGINEER [facility] LAB BLOOD ORDERABLES Fi nal Result Performing Organization Address [facility] de Phone Number HENRIK DON [address] [place] [address] * (ABNORMAL) Blood gas, arterial (05/01/2021 10:[address] DESIGN ENGINEER) pH, Art 7.35 7.35 - 7.45 [facility] PCO2, Arterial 37 35 - 45 mmHg [facility] PO2, Arterial 31(C) 83 - 108 mmHg [facility] Comment:Critical result call ed to and read back by Mani Talbert on 05/01/2021 23:00:58 RO[address] DESIGN ENGINEER to [place]. HCO3 Art (Calculated) 20 20 - 30 mmol/L [facility] BE, art -5 mmol/L [facility] Comment: Interpretive Data No Reference Range Established Current Interpretive Data was last revised on 2017 O2 Sat Art (Measured) 54(L) 90 - 95 % [facility] Blood 05/01/2021 10:[address] DESIGN ENGINEER 05/01/2021 10:[address] DESIGN ENGINEER Wally Aguilar LAB BLOOD ORDERABLES Fi nal Result Performing Organization Address [facility] Co de Phone Number HENRIK DON [address] [place] [address] * (ABNORMAL) Calcium, ionized (05/01/2021 10:[address] DESIGN ENGINEER) Ca, ionized, bld 4.62 4.60 - 5.20 mg/dL [facility] Ca, ionized, bld, calc 4.50(L) 4.60 - 5.20 mg/dL [facility] Blood 05/01/2021 10:[address] DESIGN ENGINEER 05/01/2021 10:[address] DESIGN ENGINEER us Wally Aguilar DO LAB BLOOD ORDER[place] [address] [place] [address] * (ABNORMAL) Comprehensive metabolic panel (05/01/2021 10:[address] DESIGN ENGINEER) Sodium 134(L) 135 - 145 mmol/L [facility] [...] [facility] Blood 05/01/2021 10:[address] DESIGN ENGINEER 05/01/2021 10:[address] DESIGN ENGINEER Wally Aguilar DO LAB BLOOD ORDERABLES Fi nal Result Performing Organization Address [facility]/ZIP Co de Phone Number HENRIK [address] [place] [address] * Magnesium (05/01/2021 10:[address] DESIGN ENGINEER) Magnesium 1.6 1.4 - 2.5 mg/dL [facility] Blood 05/01/2021 10:[address] DESIGN ENGINEER 05/01/2021 10:[address] DESIGN ENGINEER Silviano Huddleston [employer] LAB BLOOD ORDERABLES Final Result Performing Organization Address [facility] [facility] de Phone Number HENRIK [id number] [place] [place] [address] * Phosphorus (05/01/2021 10:[address] DESIGN ENGINEER) Phosphorus, pl 3.4 2.3 - 4.5 mg/dL [facility] Blood 05/01/2021 10:[address] DESIGN ENGINEER 05/01/2021 10:[address] DESIGN ENGINEER Silviano Huddleston BUTCHER OR [employer] MAKER LAB BLOOD ORDERABLES Final Result Performing Organization Address [facility] de Phone Number [facility] [id number] [place] [address] * (ABNORMAL) Troponin T high-sensitivity series (baseline, 2hr, 4hr, 6hr) (05/01/2021 10:[address] DESIGN ENGINEER) Trop T hs 5,852(C) <=22 ng/L [facility] Comment: Critical Result called to and read back by Elena Calhoun, DATE: 2021-05-01 23:24:37 BY: [place] Interpretive Data For further hscTnT resources including the diagnostic algorithm and an aid in interpretation, copy and paste this link: [email or web address] Current Interpretive Data last revised 2020. Blood 05/01/2021 10:[address] DESIGN ENGINEER 05/01/2021 10:[address] DESIGN ENGINEER us Nalini Clayton MD LAB BLOOD ORDERABLES Final Resul t [facility]RIK DON [id number] [address] [place] [address] * POCT glucose (05/01/2021 9:[address] DESIGN ENGINEER) Glucose, POC 182 70 - 199 mg/dL [facility] Blood 05/01/2021 9:[address] DESIGN ENGINEER 05/01/2021 9:[address] DESIGN ENGINEER us Nalini Clayton MD LAB POCT ORDERABLES - DEVICE Fin al Result Performing Organization Address [facility] Co de Phone Number [place]RIK DON [id number] [address] [place] [address] * XR Chest 1 Vw Portable (05/01/2021 8:[address] DESIGN ENGINEER) Anatomical Region Laterality Modality Body, Chest N/A Computed Radiogr aphy 05/02/2021 5:[address] DESIGN ENGINEER Impressions 05/02/2021 5:[address] DESIGN ENGINEER Mixed reticular and alveolar opacities are demonstrated in all lung lobes but demonstrate an upper lobe and perihilar predominance. Findings may represent pulmonary edema on background of centrilobular emphysematous changes. ?? Electronically signed by: Richard Lopez II, D.O. Narrative 05/02/2021 5:[address] DESIGN ENGINEER EXAMINATION: XR CHEST 1 VIEW DATE: 05/01/2021 [...] osseous abnormality. Procedure Note Richard Lopez II, DO - [...] Result * Critical Care (05/01/2021 8:[address] DESIGN ENGINEER) Narrative Wally Aguilar DO - 05/01/2021 8:[address] DESIGN ENGINEER Wally Aguilar, DO ? 05/01/2021 ??9:50 PM [...] plan with the ICU team and other medical/program evaluation consultant staff, making frequent assessments and decisions [...] Result * POCT glucose (05/01/2021 7:[address] DESIGN ENGINEER) Glucose, POC 176 70 - 199 mg/dL [facility] Blood 05/01/2021 7:[address] DESIGN ENGINEER 05/01/2021 7:[address] DESIGN ENGINEER Nalini Clayton MD LAB POCT ORDERABLES - DEVICE Fin al Result Performing Organization Address [facility] Co de Phone Number [facility]RIK DON [id number] [address] * Check Sample (04/30/2021 10:[address] DESIGN ENGINEER) Pathologist [facility] ABO Rh A Positive [facility] OTHER 04/30/2021 10:[address] DESIGN ENGINEER 05/02/2021 1:[address] DESIGN ENGINEER Nalini Clayton MD LAB BLOOD ORDERABLES Final Resul t Performing Organization Address [facility] Co de Phone Number HENRIK DON [id number] [place] [address] documented in this encounter Visit Diagnoses Diagnosis ST elevation myocardial infarction (STEMI) (HCC)- Primary Acute myocardial infarction, unspecified site, episode of care unspecified ST elevation myocardial infarction (STEMI), unspecified artery (HCC) Gross hematuria Hemoptysis Primary hypertension Unspecified essential hypertension PVD (peripheral vascular disease) (HCC) Unspecified peripheral vascular disease Type 2 diabetes mellitus with other specified complication, without long-term current use of insulin ([facility]) Chronic obstructive pulmonary disease, unspecified COPD type ([facility]) Pulmonary edema with congestive heart failure (CMS/HCC) (HCC) Pneumonia due to COVID-19 virus Acute hypoxemic respiratory failure due to COVID-19 (CMS/HCC) (HCC) S/P CABG x 4 Postsurgical aortocoronary bypass status COVID Acute respiratory failure due to COVID-19 ([facility]) ST elevation myocardial infarction (STEMI), unspecified artery ([facility]) documented in this encounter Admitting Diagnoses Diagnosis ST elevation myocardial infarction (STEMI) ([facility]) Acute myocardial infarction, unspecified site, episode of care unspecified documented in this encounter Administered Medications Inactive Administered Medications - up to 3 most recent administrations Medication Order MAR Action Action Date Dose Rate Site acetaminophen (TYLENOL) tablet 650 mg 650 mg, oral, Every 6 hours PRN, 1st line for pain, Starting on 05/09/21 at 0915 Given 05/29/2021 2:[address] DESIGN ENGINEER 650 mg Given 05/21/2021 3:[address] DESIGN ENGINEER 650 mg Given 05/21/2021 8:[address] DESIGN ENGINEER 650 mg al & mag hydroxide rgsdezzgdkj-glofzkecjvfjkhy-dujraaozf-nystatin (MAGIC MOUTHWASH) suspension 1-1-1-1 20 mL, swish & spit, Every 4 hours PRN, pain, Starting on 05/17/21 at 2116 albuterol HFA (PROVENTIL HFA,VENTOLIN HFA,PROAIR HFA) 90 mcg/actuation inhaler 8 puff 8 puff, inhalation, Every 4 hours PRN (incident response manager), wheezing, Starting on Tue06/03/21 at 1315 aspirin enteric coated tablet 81 mg 81 mg, oral, Daily, First dose on Tue05/12/21 at 0900, Do not crush, chew, cut, dissolve, open or otherwise manipulate tablet/capsule. Given 06/03/2021 8:[address] DESIGN ENGINEER 81 mg Given 06/02/2021 9:[address] DESIGN ENGINEER 81 mg Given 06/01/2021 9:[address] DESIGN ENGINEER 81 mg atorvastatin (LIPITOR) tablet 80 mg 80 mg, oral, Nightly, First dose (after last modification) on Kristina 05/07/21 at 2100 Given 06/02/2021 8:[address] DESIGN ENGINEER 80 mg Given 06/01/2021 9:[address] DESIGN ENGINEER 80 mg Given 05/31/2021 9:[address] DESIGN ENGINEER 80 mg carvediloL (COREG) tablet 3.125 mg 3.125 mg, oral, 2 times daily with meals (bkfst, dinner), First dose on Kristina 05/28/21 at 1800 Given 06/03/2021 8:[address] DESIGN ENGINEER 3.125 mg Given 06/02/2021 5:[address] DESIGN ENGINEER 3.125 mg Given 06/02/2021 9:[address] DESIGN ENGINEER 3.125 mg ceFAZolin (ANCEF) 1 gram/10 mL in sterile water (premix) Administer over 3 Minutes, As needed, Starting on 05/04/21 at 1454, Intra-Op Given 05/04/2021 2:[address] DESIGN ENGINEER 2,000 mg Surgical Site cefepime (MAXIPIME) 2,000 mg in sodium chloride 0.9% 100 mL IVPB 2,000 mg, intravenous, at 200 mL/hr, Administer over 30 Minutes, Every 12 hours, First dose (after last modification) on 05/30/21 at 1730, Renally dose adjusted per pharmacy protocol for CrCl > 60 mL/min Mini-Bag Plus bag, Indications: Pneumonia, Hospital AcquiredIndications:Pneumo adithya, Hospital Acquired New Bag 06/03/2021 6:[address] DESIGN ENGINEER 2,000 mg 200 mL/hr New Bag 06/02/2021 5:[address] DESIGN ENGINEER 2,000 mg 200 mL/hr New Bag 06/02/2021 5:[address] DESIGN ENGINEER 2,000 mg 200 mL/hr clopidogreL (PLAVIX) tablet 75 mg 75 mg, oral, Daily, First dose on Kristina 05/28/21 at 1145 Given 06/03/2021 8:[address] DESIGN ENGINEER 75 mg Given 06/02/2021 9:[address] DESIGN ENGINEER 75 mg Given 06/01/2021 9:[address] DESIGN ENGINEER 75 mg dapagliflozin (FARXIGA) tablet 10 mg 10 mg, oral, Daily, First dose on 05/23/21 at 1245, Indications: heart failure with reduced ejection fractionIndications:heart failure with reduced ejection fraction Given 06/03/2021 8:[address] DESIGN ENGINEER 10 mg Given 06/02/2021 1:[address] DESIGN ENGINEER 10 mg Given 06/01/2021 9:[address] DESIGN ENGINEER 10 mg dextrose (D10W) 10% bolus 250 [...] for each episode of hypoglycemia., Indications: hypoglycemic disorderIndications:hypoglyc emic disorder dextrose oral liquid liquid 15 g 15 g, oral, Every 15 min PRN, low blood sugar, blood glucose less than 70 mg/dL, Starting on Tue05/11/21 at 1134, If patient is alert and [...] for each episode of hypoglycemia., Indications: hypoglycemic disorderIndications:hypoglyc emic disorder dextrose oral liquid liquid 15 g [...] for each episode of hypoglycemia., Indications: hypoglycemic disorderIndications:hypoglyc emic disorder electrolyte-A (PLASMA-LYTE) bolus Continuous PRN, Starting on 05/04/21 at 1455, Intra-Op New Bag 05/04/2021 2:[address] DESIGN ENGINEER 1,000 mL Surgical Site enoxaparin (LOVENOX) syringe 40 mg 40 mg, subcutaneous, Daily (for enoxaparin), First dose on Kristina 05/07/21 at 2100, Indications: Deep Vein Thrombosis PreventionIndications:Deep Vein Thrombosis Prevention Given 06/01/2021 9:[address] DESIGN ENGINEER 40 mg Left Lower Abdomen Given 05/31/2021 10:[address] DESIGN ENGINEER 40 mg L eft Lower Abdomen Given 05/30/2021 9:[address] DESIGN ENGINEER 40 mg Le ft Lower Abdomen glucagon [...] Tue05/19/21 at 1739 Given 05/25/2021 11:[address] DESIGN ENGINEER 200 mg Given 05/21/2021 8:[address] DESIGN ENGINEER 200 mg Given 05/20/2021 5:[address] DESIGN ENGINEER 200 mg heparin 1,000 unit/mL injection As needed, Starting on 05/04/21 at 1455, Intra-Op Given 05/04/2021 2:[address] DESIGN ENGINEER 11,000 Units Surgical Site insulin lispro (HumaLOG, ADMELOG) 100 unit/mL injection [...] Diabetes MellitusIndications:Diabetes Mellitus Given 06/03/2021 12:[address] DESIGN ENGINEER 4 Units Right Upper Arm Given 06/03/2021 8:[address] DESIGN ENGINEER 4 Units Le ft Lower Abdomen Given 06/02/2021 5:[address] DESIGN ENGINEER 6 Units Ri ght Lower Abdomen insulin [...] Diabetes MellitusIndications:Diabetes Mellitus Given 06/02/2021 8:[address] DESIGN ENGINEER 1 Units Left Upper Arm Given 06/01/2021 9:[address] DESIGN ENGINEER 1 Units Le ft Lower Abdomen Given 05/31/2021 10:[address] DESIGN ENGINEER 1 Units L eft Lower Abdomen midodrine (PROAMATINE) tablet 15 mg 15 mg, oral, 3 times daily, First dose (after last modification) on Tue05/22/21 at 1500, Indications: Symptomatic Orthostatic HypotensionIndications:Symptomatic Orthostatic Hypotension Given 06/03/2021 8:[address] DESIGN ENGINEER 15 mg Given 06/02/2021 11:[address] DESIGN ENGINEER 15 mg Given 06/02/2021 3:[address] DESIGN ENGINEER [address] (PROTONIX) extended release tablet 40 mg 40 mg, oral, Daily, First dose on Kristina 05/07/21 at 0900, Do not crush, chew, cut, dissolve, open or otherwise manipulate tablet/capsule., Indications: Stress Ulcer ProphylaxisIndications:Stress Ulcer Prophylaxis Given 06/03/2021 8:[address] DESIGN ENGINEER 40 mg Given 06/02/2021 9:[address] DESIGN ENGINEER 40 mg Given 06/01/2021 9:[address] DESIGN ENGINEER 40 mg papaverine injection As needed, Starting on 05/04/21 at 1455, Intra-Op Given 05/04/2021 2:[address] DESIGN ENGINEER 120 mg Surgical Site polyethylene glycol (MIRALAX) packet 17 g 17 g, oral, Every 12 hours, First dose (after last modification) on Tue05/29/21 at 1015, Dissolve in 8 ounces of fluid, Indications: constipationIndications:constipat ion Given 06/02/2021 9:[address] DESIGN ENGINEER 17 g Given 06/01/2021 9:[address] DESIGN ENGINEER 17 g Given 06/01/2021 9:[address] DESIGN ENGINEER 17 g QUEtiapine (SEROquel) tablet 50 mg 50 mg, oral, Nightly, First dose (after last modification) on Tue05/22/21 at 2100 Given 06/02/2021 8:[address] DESIGN ENGINEER 50 mg Given 06/01/2021 9:[address] DESIGN ENGINEER 50 mg Given 05/31/2021 9:[address] DESIGN ENGINEER 50 mg senna-docusate (PERICOLACE) 8.6-50 mg per tablet 2 tablet 2 tablet, oral, Every 12 hours, First dose on Tue05/29/21 at 1015 Given 06/02/2021 9:[address] DESIGN ENGINEER 2 tablets Given 06/01/2021 9:[address] DESIGN ENGINEER 2 tablets Given 06/01/2021 9:[address] DESIGN ENGINEER 2 tablets sodium bicarbonate tablet 1,300 mg 1,300 mg, oral, 2 times daily, First dose (after last modification) on Tue05/29/21 at 0900 Given 06/03/2021 8:[address] DESIGN ENGINEER 1,300 mg Given 06/02/2021 8:[address] DESIGN ENGINEER 1,300 mg Given 06/02/2021 9:[address] DESIGN ENGINEER 1,300 mg sodium chloride 0.9% flush 0.5-20 mL 0.5-20 mL, intra-catheter, Every 8 hours scheduled, First dose on Tue05/04/21 at 2200, Flush volume based on line type and size. , Indications: FlushingIndications:Flushing Given 06/03/2021 6:[address] DESIGN ENGINEER 10 mL Given 06/02/2021 8:[address] DESIGN ENGINEER 10 mL Given 06/02/2021 3:[address] DESIGN ENGINEER 10 mL sodium chloride 0.9% irrigation As needed, Starting on Tue05/04/21 at 1456, Intra-Op Given 05/04/2021 2:[address] DESIGN ENGINEER 5,000 mL Surgical Site thrombin-recombinant 5,000 unit topical solution As needed, Starting on 05/04/21 at 1455, Intra-Op Given 05/04/2021 2:[address] DESIGN ENGINEER 10,000 Units Chest vancomycin (VANCOCIN) 1,750 mg in sodium chloride 0.9% 500 mL IVPB 1,750 mg, intravenous, at 258.8 mL/hr, Administer over 120 Minutes, Every 12 hours, First dose (after last modification) on 05/30/21 at 0600, For 10 doses, Indications: Pneumonia, Hospital AcquiredIndications:Pne umonia, Hospital Acquired New Bag 06/03/2021 6:[address] DESIGN ENGINEER 1,750 mg 258.8 mL/hr New Bag 06/02/2021 5:[address] DESIGN ENGINEER 1,750 mg 258.8 mL/hr New Bag 06/02/2021 6:[address] DESIGN ENGINEER 1,750 mg 258.8 mL/hr vancomycin (VANCOCIN) 2,000 mg in sodium chloride 0.9% 2 mL topical solution As needed, Starting on 05/04/21 at 1454, Intra-Op Given 05/04/2021 2:[address] DESIGN ENGINEER [address] documented in this encounter Discontinued Medications Medication [...] Recently Administered Medications Times are shown in ROAD DESIGN ENGINEER. Scheduled Medication Order 06/01/2021 06/02/2021 06/03/2021 albuterol HFA (PROVENTIL HFA,VENTOLIN HFA,PROAIR HFA) 90 mcg/actuation inhaler 8 puff (CANCELED) 8 puff, inhalation, Every 4 hours while awake (incident response manager), First dose on Tue05/20/21 at 2200 0813 (Given - Provider: Tish Thomas, ABIOLA)1350 (Given - Provider: Tish Thomas RRT)1711 (Not Given - Provider: Rosalva Henry RRT - Reason: Patient/family refused)2119 (Given - Provider: Opal Dillon RRT) 1014 (Given - Provider: Jayson Underwood RRT)1258 (Not Given - Provider: Jayson Underwood RRT - Reason: Other - Comment: recently given) albuterol HFA (PROVENTIL HFA,VENTOLIN HFA,PROAIR HFA) 90 mcg/actuation inhaler 8 puff (CANCELED) 8 puff, inhalation, Every 6 hours while awake (incident response manager), First dose (after last modification) on Tue06/02/21 at 2100 2137 (Given - Provider: Stefania aGllegos, ABIOLA) 0908 (Not Given - Provider: Deirdre [...] Regalado RN) 0811 (Given - Provider: Inna Sorto RN) atorvastatin (LIPITOR) tablet 80 mg 80 mg, oral, Nightly, First dose (after last modification) on Kristina 05/07/21 at 2100 2111 (Given - Provider: Ellen Drummond RN) 2035 (Given - Provider: Azucena Hsu, DEEPIKA) carvediloL (COREG) tablet 3.125 mg 3.125 mg, oral, 2 times daily with meals (bkfst, dinner), First dose on Kristina 05/28/21 at 1800 0901 (Given - Provider: Suzie Meza RN)1740 (Given - Provider: Suzie Meza RN) 0914 (Given - Provider: Regina Regalado, DEEPIKA)1758 (Given - Provider: Regina Regalado RN) 0811 (Given - Provider: Inna Sorto RN) cefepime (MAXIPIME) 2,000 mg in sodium chloride [...] Meza RN) 1346 (Given - Provider: Regina Regalado RN) 0811 (Given - Provider: Inna Sorto RN) enoxaparin (LOVENOX) syringe 40 mg 40 mg, subcutaneous, Daily (for enoxaparin), First dose on Kristina 05/07/21 at 2100, Indications: Deep Vein Thrombosis Prevention 2111 (Given - Provider: Ellen Drummond RN) 2034 (Not Given - Provider: zAucena Hsu RN - Reason: Patient/family refused) insulin [...] Regalado RN) 0813 (Given - Provider: Inna Sorto RN)1222 (Given - Provider: Inna Sorto RN) insulin [...] Drummond RN) 2043 (Given - Provider: Azucena Hsu RN) magnesium sulfate 2 g/50 mL in [...] Meza RN)1438 (Given - Provider: Suzie Meza RN)211 (Given - Provider: Ellen Drummond RN) 0907 (Given - Provider: Regina Regalado, DEEPIKA)1509 (Given - Provider: Regina Regalado, DEEPIKA)2358 (Given - Provider: Azucena Hsu, DEEPIKA) 0811 (Given - Provider: Inna Sorto RN)1500 (Due) pantoprazole DR (PROTONIX) extended release tablet 40 mg 40 mg, oral, Daily, First dose on Tue05/07/21 at 0900, Do not crush, chew, cut, dissolve, open or otherwise manipulate tablet/capsule., Indications: Stress Ulcer Prophylaxis 0901 (Given - Provider: Suzie Meza RN) 0907 (Given - Provider: Regina Regalado, DEEPIKA) 0828 (Given - Provider: Inna Sorto RN) polyethylene glycol (MIRALAX) packet 17 g 17 g, oral, Every 12 hours, First dose (after last modification) on Tue05/29/21 at 1015, Dissolve in 8 ounces of fluid, Indications: constipation 0902 (Given - Provider: Suzie Meza RN)211 (Given - Provider: Ellen Drummond RN) 0908 (Given - Provider: Regina Regalado RN)2034 (Not Given - Provider: Azucena Hsu RN - Reason: Patient/family refused) 105 (Not Given - Provider: Inna Sorto RN [...] Azucena Hsu RN - Reason: Patient/family refused) 105 (Not Given - Provider: Inna Sorto RN [...] Ellen Drummond RN)1510 (Given - Provider: Regina Regalado, RN)2038 (Given - Provider: Azucena Hsu, RN) 0608 (Given - Provider: Azucena Hsu RN)1400 (Due) vancomycin (VANCOCIN) 1,750 mg in sodium chloride 0.9% 500 mL IVPB 1,750 mg, intravenous, at 258.8 mL/hr, Administer over 120 Minutes, Every 12 hours, First dose (after last modification) on 05/30/21 at 0600, For 10 doses, Indications: Pneumonia, Hospital Acquired 0645 (New Bag - Provider: lElen Drummond RN)1842 (New Bag - Provider: Suzie Meza RN) 0613 (New Bag - Provider: Ellen Drummond RN)1758 (New Bag - Provider: Regina Regalado RN) 0603 (New Bag - Provider: Azucena Hsu RN) PRN Medication Order 06/01/2021 06/02/2021 06/03/2021 acetaminophen (TYLENOL) tablet 650 mg 650 mg, oral, Every 6 hours PRN, 1st line for pain, Starting on 05/09/21 at 0915 al & mag hydroxide rstkgeehrsd-cmtoldzaifmsrus-wizixizws-nystatin (MAGIC MOUTHWASH) suspension 1-1-1-1 20 mL, swish & spit, Every 4 hours PRN, pain, Starting on 05/17/21 at 2116 albuterol HFA (PROVENTIL HFA,VENTOLIN HFA,PROAIR HFA) 90 mcg/actuation inhaler 8 puff 8 puff, inhalation, Every 4 hours PRN (incident response manager), wheezing, Starting on 06/03/21 at 1315 dextrose [...] 2 05/28/2021 05/04/20 21 calcium carbonate (TUMS) niurka wable tablet 500 mg 1 05/27/2021 sodium bicarbonate tablet 650 mg 1 05/27/20 21 calcium carbonate (TUMS) niurka wable tablet 1,000 mg 1 05/26/2021 cefepime [...] 05/18/2021 furosemide (LASIX) tablet 40 mg 2 05/10/2021 insulin glargine (LANTUS, SE MGLEE) 100 [...] millicurie 1 05/18/2021 al & mag hydroxide gdzoqrpjrky-syhqpwfwallqzsm-xhgiqtqjy-nyst atin (MAGIC MOUTHWASH) suspension 1-1-1-1 5 05/17/2021 [...] ondansetron (ZOFRAN) injection 4 mg 2 05/1405/02/2021 sterile water irrigation 1 05/14/2021 furosemide (LASIX) 10 mg/mL injection 20 mg [...] sodium chloride 0.9% flush 0.5-20 mL 3 04/2105/04/2021 sodium chloride 0.9% infusion 6 05/12/2021 05/01/2021 [...] diazePAM (VALIUM) injection 5 mg 2 05/04/20 21 docusate (COLACE) 10 mg/mL o ral liquid 100 mg 1 05/04/2021 docusate sodium (COLACE) capsule 100 mg 1 1 07/04/2020 insulin regular (HumuLIN R, NovoLIN R) 100 Units in sodium chloride 0.9% 100 mL (1 Units/mL) infusion 1 05/04/2021 lidocaine (GLYDO) 2 % jelly 200 mg 1 2020 lidocaine jelly (XYLOCAINE) 2 % 100 mg 1 prochlorperazine (COMPAZINE) injection 10 mg 1 05/04/2021 sodium chloride 0.9 % irriga tion for CBI 3,000 mL 1 05/04/2021 sodium chloride 0.9% irrigation 1,000 mL 1 05/04/2021 sodium chloride 0.9% irrigation 3,000 mL 1 05/04/2021 sodium chloride 0.9% solution 3 05/04/2021 vancomycin 1,000 mg/200 mL i n [...] 05/01/2021 ioversoL (OPTIRAY 350) injection 1 05/01/20 21 midazolam (VERSED) 1 mg/mL p reservative free injection 1 05/01/2021 nitroglycerin injection 200 mcg/mL D5W 10 mL 1 05/01/2021 nitroprusside (NIPRIDE) injection 1 021 phenylephrine (HAYDEN-SYNEPHRINE) injection 1 05/01/2021 senna-docusate (PERICOLACE) [...] REQUEST OPERATING ROOM 1 05/03/2021 CASE REQUEST SHIPPING AND RECEIVING SPECIALIST 1 05/01/2021 documented in this encounter Additional Health Concerns Infection Onset Date Last Indicated Resolved Time COVID: Suspected 05/19/2021 05/19/2021 05/19/2021 10:[address] DESIGN ENGINEER COVID19 05/19/2021 05/19/2021 06/17/2021 3:[address] DESIGN ENGINEER Rhino/Enterovirus 05/26/2021 05/26/2021 06/09/2021 3:[address] DESIGN ENGINEER documented as of this encounter 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
--- OUTSIDE RECORDS SUMMARY | 2024-06-21 19:59 | XMS_ITS | Encounter Summary ---
Author Organization [facility] Healthcare Address [address] [place] [address] Care Team Providers Care Judo Teacher Name Role Phone Unknown, Notinfile Primary Care Provider Unavail able Salbador Granados MD Unavailable [phone] Encounter Details Date Type Department Care Team (Late st Contact Info) Description 05/04/2021 1:38 PM DIESEL LOCOMOTIVE FIRER Anesthesia Event [facility] Operating Room [address] [place] [address] [place] [id number] [facility] [address] [place], [place] [id number] Anesthesia Record Procedure Summary Procedure Name Responsible Anesthesiologist Anesthesia Start Time Anesthesia Stop Time CORONARY ARTERY BYPASS GRAFT x 4 - LEFT INTERNAL MAMMARY ARTERY TAKEDOWN, RIGHT SAPHENOUS VEIN ENDOHARVEST, CARDIOPULMONARY BYPASS, TRANSESOPHAGEAL ECHOCARDIOGRAM (Chest) Can Jones MD 05/04/21 1338 05/04/212027 Events Date Time Event Comment 05/04/2021 0846 1337 In Room 1338 An Start 1338 An Start Data 1345 Quick Note 35,000 units he adri at 1525 Post ACT = 528 IABP at 1:1 off at 1558 Pump Flow l/min 1.8 Ci = 3.8 2.0 Ci = 4.2 2.4 Ci = 5.1 Pump time = 145 Cross Clamp time =116 CABG x 4 (L) Hgb = 6.5 (L) Hct = 20 (L) Temp = 30 (H) Glu = 217 1349 An Induction The patient was reevaluated immediately before moderate or deep sedation use and before anesthesia induction. 1354 An Intubation 1408 Line Placement 1412 AURORA placed 1416 Anesthesia Ready 1425 Incision Start 1425 Proc Start 1430 Lungs Down 1430 Sternotomy 1524 Perfusion Ready 1543 Quick Note ACT 528 1558 CPB ON 1604 Vacuum Assist On 1605 Ultrafiltration On 1605 Cooling Start 1607 Aortic Clamp ON 1614 Labs Drawn 1703 Labs Drawn 1738 Rewarming Start 1801 Aortic Clamp OFF 1820 Vacuum Assist Off 1820 Ultrafiltration Off 1823 CPB OFF 1941 Proc Fin 1949 Perfusion Complete 1952 AURORA removed 2012 an stop data 2015 Out of Room 2026 Handoff to RN I completed my handoff to the receiving nurse during which we: 1. Patient identified 2. Responsible provider identified 3. Pertinent medical history reviewed 4. Procedure type and surgical course discussed 5. Intraoperative anesthetic management and any significant issues discussed 6. Expectations and concerns for postop period discussed 7. Questions solicited from receiving nurse 8. Patient disposition at the time of handoff: ICU 2027 An Stop Meds Name Total phenylephrine (BRYSON-SYNEPHRINE) injection 3,100 mcg sodium bicarbonate injection 1 mEq/mL 50 mEq sodium bicarbonate 50 mEq lidocaine PF (XYLOCAINE) injection 2 % 2 00 mg heparin injection 1,000 unit/mL 5,000 Un its norepinephrine IV syringe 8 mcg/mL 24 mc g midazolam 5 mg fentaNYL 1,250 mcg lidocaine syringe 2% 80 mg etomidate 10 mg rocuronium 150 mg phenylephrine 50 mcg vancomycin 1,500 mg ceFAZolin 2,000 mg tranexamic acid (CYKLOKAPRON ) 1,000 mg in sodium chloride 0.9% 100 mL (10 mg/mL) infusion 473.24 mg heparin 5,000 unit/ml 35,000 Units insulin regular (HumuLIN R, NovoLIN R) 100 Units in sodium chloride 0.9% 100 mL (1 Units/mL) infusion 19.8 Units norepinephrine (LEVOPHED) 8, 000 mcg in dextrose 5% 250 mL (32 mcg/mL) infusion 1.49 mg calcium chloride 1 g protamine 300 mg electrolyte-A (PLASMA-LYTE) 400 mL with albumin 150 mL, heparin 10 mL, mannitol 12.5 g, sodium bicarbonate 50 mL solution 660 mL tranexamic acid 1,000 mg potassium arrest solution 23 mEq Lactated Ringer's (LR) 16 mL with adenosine (ADENOCARD) 14 mL, lidocaine (cardiac) (XYLOCAINE) 5 mL, magnesium sulfate 4 g solution 39 mL DOBUTamine 65.74 mg dexmedeTOMIDine infusion 97.39 mcg NS 0.9% 1,000 mL electrolyte-A (PLASMA-LYTE) infusion 1,0 00 mL * Agents Name O2 Sevoflurane Isoflurane Inspired Isoflurane Inspired Sevoflurane * Blood Name Total PRBC - CROSSMATCHED 500 mL FFP - CROSSMATCHED 300 mL PLATELETS - CROSSMATCHED 400 mL CRYOPRECIP - CROSSMATCHED 86 mL Lines, Drains, and Airways Type Details Placement Removal Peripheral IV Placement Date: 05/01/21; Placement Time: 1728; Existing LDA Placed by: Other [facility]; Catheter Size: 20 G; Orientation: Right; Location: Antecubital; Removal Date: 05/05/21; Removal Time: 1500; Removal Reason: Therapy completed 05/01/211728 by Alexa Amor RN 05/05/21 1500 by Yecenia Michaels RN Peripheral IV Placement Date: 05/01/21; Placement Time: 172; Existing LDA Placed by: Other [facility]; Catheter Size: 20 G; Orientation: Left; Location: Antecubital; Removal Date: 05/05/21; Removal Time: 1500; Removal Reason: Therapy completed 05/01/211728 by Alexa Amor RN 05/05/21 1500 by Yecenia Michaels RN Arterial Sheath Placement Date: 05/01/21; Placement Time: 1730; Hand Hygiene: Yes; Site Prep: Alcohol, Chlorhexidine; Site Prep Agent Dried: Yes; Sterile Barrier Used: Yes; Inserted by: Matilde; Insertion Attempts: 1; Pt Tolerance: Tolerated well; Placement Verification: Blood return, Fluoroscopy, Ultrasound; Removal Date: 05/06/21; Removal Time: 91405/01/211729 by Alexa Amor RN 05/06/21 09 by Yecenai Michaels RN IABP 05/01/21; 1833; Righ t femoral; Yes; 8.0 Fr.; 50 mL; Yes; 05/06/21; 914; Dr Evans; Per protocol; No complications, Dressing applied 05/01/211833 by Alexa Amor RN 05/06/21 0915 by Yecenia Michaels, DEEPIKA Peripheral IV Placement Date: 05/02/21; Placement Time: 1840; Change Due: 05/06/21; Catheter Size: 20 G; Orientation: Anterior, Right, Upper; Location: Arm; Removal Date: 05/05/21; Removal Time: 1500; Removal Reason: Therapy completed 05/02/21 1840 by Safia Raya RN 05/05/21 1500 by Yecenia Michaels RN Urethral Catheter Placement Date: 05/04/21; Placement Time: 0815; Inserted by: Tereza POE; Type: Triple-lumen; Balloon Size: 10 mL; Urine Returned: Yes; Removal Date: 05/14/21; Removal Reason: Disontinued in OR 05/04/21 0815 by Tereza Encinas RN 05/14/21 0000 by Alexa Faria RN ETT Placement Date: 05/04/21; Placement Time: 1354 (created via procedure documentation); Mask Ventilation: 2; Technique: Direct laryngoscopy; Type: ETT - single; Single Lumen Tube Size: 8 mm; Cuffed: Yes; Laryngoscope: Neptali; Blade Size: 4; Location: Oral; Grade View: Grade I; Insertion Attempts: 1; Placement Verification: Auscultation, Capnometry; Airway Comment: Desmond MUÑOZ-S performed DL and intubation under supervision; Removal Date: 05/05/21; Removal Time: 0905/04/21 1354 by Robert Duran AA 05/05/21 0935 by Samra Kearns RRT Arterial Line Placement Date: 05/04/21; Placemnt Time: 1430 (created via procedure documentation); Size: 20 G; Orientation: Left; Location: Radial; Securement: Taped, Transparent dressing; Removal Date: 05/08/21; Removal Time: 0900 05/04/21 1430 by Robert Duran AA 05/08/21 0900 by Romeo Nagel NP Introducer Placement Date: 05/04/21; Placement Time: 1441 (created via procedure documentation); Existing LDA Placed by: Yes; Size: multi-lumen access catheter (MAC); Insertion Attempts: 05/18/21; Securement: 1507 05/04/21 1441 by Robert Duran AA 05/18/21 1507 by Betty Kidd RN PA Catheter Placement Date: 05/04/21; Placement Time: 1441 (created via procedure documentation); Site Prep: Chlorhexidine; Removal Date: 05/08/21; Removal Time: 0900 05/04/21 1441 by Robert Duran AA 05/08/21 0900 by Romeo Nagel NP RETIRED Surgical Site 05/04/21; 1456; est; 08/21/21; 1459 05/04/21 1456 by Jess Hanley RN 08/21/21 1459 by Natalie Hassan RN RETIRED Surgical Site 05/04/21; 1456; Ri ght; Leg; 08/21/21; 1459 05/04/21 1456 by Jess Hanley RN 08/21/21 1459 by Natalie Hassan RN Y Chest Tube A and B 05/04/21; 1559; A; Anterior; Mediastinal; 32 Fr.; 2; B; Left; Pleural; 32 Fr.; 2 05/04/21 1559 by Michaela Castro, DEEPIKA 05/07/21 1000 by Octavia Daniel, DEEPIKA documented in this encounter Social History Tobacco Use Types Packs/Day Years Used Date Smoking Tobacco: Every Day Cigarettes 1 40 Comments:Smoking History Pac ks/day: 1 Packs Alcohol Use Standard Drinks/Week Comments No 0 (1 standard drink = 0.6 oz pur e alcohol) Sex and Gender Information Value Date Recorded Sex Assigned at Not on file Legal Sex Male 11:30 PM 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 LOCOMOTIVE FIRER Gender Identity Not on file Sexual Orientation Not on file documented as of this encounter OR Notes * Anesthesia Postprocedure Evaluation - Can Jones MD - 05/11/2021 7:57 AM CST Patient: Baldev Qiu Procedure Summary Date: 05/04/21 Room / Location: OPERATING ROOM 13 / OPERATING ROOM Anesthesia Start: 1337 Anesthesia Stop: 2027 Procedure: CORONARY ARTERY BYPASS GRAFT x 4 - LEFT INTERNAL MAMMARY ARTERY TAKEDOWN, RIGHT SAPHENOUS VEIN ENDOHARVEST, CARDIOPULMONARY BYPASS, TRANSESOPHAGEAL ECHOCARDIOGRAM (N/A Chest) Diagnosis: ST elevation myocardial infarction (STEMI), unspecified artery (HCC) (ST elevation myocardial infarction (STEMI), unspecified artery (HCC) [I21.3]) Providers: Salbador Granados MD Responsible Provider: Can Jones MD Anesthesia Type: general ASA Status: 4 Anesthesia Type: general Last vitals BP 108/96 (BP Location: Right arm, Patient Position: Lying) Pulse 90 Temp 36.7 ??C (98.1 ??F) (Oral) Resp 18 SpO2 91% Anesthesia Post Evaluation Patient location during evaluation: ICU Patient participation: complete - patient participated Level of consciousness: fully awake Pain score: 3 Pain management: adequate Airway patency: adequate Evidence of recall: no Cardiovascular status: acceptable Respiratory status: acceptable Hydration status: acceptable Pt is: normothermic Nausea/Vomiting status: none No complications documented. EL LOCOMOTIVE FIRER * Anesthesia Procedure Notes - Robert Duran AA - 05/04/2021 2:40 PM CSTAssociated Order(s): Central Venous Line Central Venous Line Patient location: OR Indication: central venous access Staff: Supervising provider: Can Jones MD Placed by: AA: Robert Duran AA Procedure prep: Patient position: Trendelenburg. PPE: provider hat/mask, sterile gloves, sterile gown, provider hand hygiene and full body drape. Prep solution: chlorhexadine/alcohol was applied to area. Ultrasound was used prior to prep. Central line: Laterality: right Site: internal jugular Catheter type: multi-lumen access catheter (MAC) Catheter size: 9 Fr. Technique: anatomy identified with ultrasound, vein located with finder needle, Seldinger technique, wire threaded easily and wire removed intact Venous verification: pressure transduced Post insertion: all ports aspirated, all ports flushed easily, line sutured in place and occlusive dressing applied Chlorhexidine patch applied: yes Number of attempts: 1 PA catheter placement: PA catheter type: oximetric PA catheter size: 8 Fr PA catheter laterality: right PA catheter site: internal jugular Placement guided by: pressure tracing changes and verified by TEENo Assessment: Events: patient tolerated procedure well with no complications EL LOCOMOTIVE FIRER * Anesthesia Procedure Notes - Robert Duran AA - 05/04/2021 2:34 PM CSTAssociated Order(s): Airway Airway Patient location: OR Urgency: elective Date/time: 05/04/2021 1:54 PM Indications for airway management: anesthesia Difficult airway: no Staff: Supervising provider: Can Jones MD Placed by: AA: Robert Duran AA Emergent airway documentation: Risks and benefits discussed: yes Consent obtained: yes Consent given by: patient Airway prep: Preoxygenated: yes Patient position: sniffing Mask difficulty assessment: 2 - vent by mask + OA or adjuvant Spontaneous ventilation during airway: absent Sedation level during airway: GA Final airway details: Final airway type: endotracheal airway Tube type: ETT ETT size: 8.0 mm Cuffed: yes Technique used for successful ETT placement: direct laryngoscopy Devices/Methods used in placement: stylet Insertion site: oral Blade type: Neptali Blade size: 4 Cormack-Lehane (direct): grade I - full view of glottis Cuff volume: 8 mL Cuff inflated with: air ETT to lips: 23 cm Placement verified by: auscultation and CO2 detection Airway secured with: silk tape Number of attempts: 1 Additional comments: Desmond GUADARRAMA performed DL and intubation under supervision EL LOCOMOTIVE FIRER * Anesthesia Procedure Notes - Robert Duran AA - 05/04/2021 2:28 PM CSTAssociated Order(s): Arterial Line Arterial Line Patient location: OR Indication: continuous blood pressure monitoring and blood sampling needed Staff: Supervising provider: Can Jones MD Placed by: AA: Jasiel Norman AA Procedure prep: Prep: provider hat/mask Arterial line: Catheter size: 20 gauge Catheter length: 1 and 3/4 inch Catheter type: wire-guided catheter Seldinger technique: yes Laterality: left Site: radial artery Line secured: tape and Tegaderm Results: good waveform and good blood return Number of attempts: 1 Assessment: Events: patient tolerated procedure well with no complications EL LOCOMOTIVE FIRER * Anesthesia Preprocedure Evaluation - Kira Boothe MD - 05/04/2021 7:11 AM CST Images from the original note were not included. Anesthesia Evaluation Baldev Qiu is a 60 y.o. male Procedure(s): CORONARY ARTERY BYPASS GRAFT - INTERNAL MAMMARY ARTERY Pre-Op Diagnosis Codes: * ST elevation myocardial infarction (STEMI), unspecified artery (HCC) [I21.3] HISTORY Past Medical History Information obtained from: patient and chart. Neurological Neuro/Psych system: negative Cardiovascular + Hypertension + CAD + OR (STEMI) + Unknown stent(s) type + Systolic or diastolic dysfunction w/o CHF [...] Diabetes type 2. Functional Capacity Functional capacity: 4-6 METs Patient Active Problem List Diagnosis ??? [...] mg, oral, Q6H PRN, 1,000 mg at 05/02/212025 ??? aspirin chewable tablet 324 mg, 324 mg, oral, Daily, 324 mg at 05/03/2146 ??? atorvastatin (LIPITOR) tablet 80 mg, 80 mg, oral, Daily, 80 mg at 05/03/21745 ??? dextrose oral liquid liquid 15 g, 15 g, oral, Q15 Min PRN OR dextrose (D10W) 10% bolus 250 mL, 250 mL, intravenous, Q15 Min PRN ??? diazePAM (VALIUM) injection 5 mg, 5 mg, intravenous, Once ??? eptifibatide (INTEGRILIN) 0.75 mg/mL infusion, 2 mcg/kg/min, intravenous, Continuous, Last Rate: 13.79 mL/hr at 05/03/211999, 2 mcg/kg/min at 05/03/211999 ??? glucagon injection 1 mg, 1 mg, intramuscular, Q30 Min PRN ??? heparin 1,000 unit/mL injection 2,000 Units, 2,000 Units, intravenous, Q6H PRN OR heparin 1,000 unit/mL injection 3,000 Units, 3,000 Units, intravenous, Q6H PRN ??? heparin in 0.45% sodium chloride 25,000 units/250 mL (100 units/mL) infusion (premix), 0-33 Units/kg/hr, intravenous, Titrated, Last Rate: 10 mL/hr at 05/03/211999, 11.6 Units/kg/hr at 05/03/211999 ??? insulin glargine (LANTUS, SEMGLEE) 100 unit/mL injection 13 Units, 0.15 Units/kg, subcutaneous,Nightly, 13 Units at 05/03/212021 ??? insulin lispro (HumaLOG, ADMELOG) 100 unit/mL injection 0-4 Units, 0-4 Units, subcutaneous, Nightly ??? insulin lispro (HumaLOG, ADMELOG) 100 unit/mL injection 0-5 Units, 0-5 Units, subcutaneous, TIDwith meals, 1 Units at 05/03/211738 ??? insulin lispro (HumaLOG, ADMELOG) 100 unit/mL injection 4 Units, 0.05 Units/kg, subcutaneous, TID with meals, 4 Units at 05/03/211737 ??? lidocaine (LIDODERM) 5 % patch 2 patch, 2 patch, transdermal, Daily, Medication Removed at 05/03/21 0154 ??? metoprolol tartrate (LOPRESSOR) immediate release tablet 12.5 mg, 12.5 mg, oral, BID, 12.5 mg at 05/03/212025 ??? ondansetron (ZOFRAN) injection 4 mg, 4 mg, intravenous, Q6H PRN ??? oxyCODONE (ROXICODONE) tablet 5 mg, 5 mg, oral, Q4H PRN, 5 mg at 05/02/21 0838 ??? pantoprazole DR (PROTONIX) extended release tablet 40 mg, 40 mg, oral, Daily, 40 mg at ??? ramelteon (ROZEREM) tablet 8 mg, 8 mg, oral, Nightly, 8 mg at 05/03/212025 ??? senna-docusate (PERICOLACE) 8.6-50 mg per tablet 1 tablet, 1 tablet, oral, Nightly, 1 tablet at107/03/202024 ??? sodium chloride 0.9% infusion, 50 mL/hr, intravenous, Continuous, Last Rate: 50 mL/hr at 05/03/21 1800, 50 mL/hr at 05/03/21 1800 ??? traZODone (DESYREL) tablet 50 mg, 50 mg, oral, Nightly, 50 mg at 05/03/212024 Social History Tobacco Use Smoking Status Current [...] Age of Onset ??? COPD Father Vitals: 05/04/21 0545 05/04/21 0600 05/04/21 0615 BP: 102/57 107/66 105/55 Pulse: 87 85 96 Resp: Temp: SpO2: 94% 95% 93% PT: 05/04/2021: 13.4 sec INR: 05/04/2021: 1.2 APTT: 05/04/2021: 57 sec (H) Hgb A1C: 05/03/2021: 13.5 % (H) CBC RBC: 05/04/2021: 3.25 M/cumm (L) RDW: No results found for requested labs within last 720 hours. MCHC: 05/04/2021: 34.5 g/dL MCH: 05/04/2021: 31.4 pg MCV: 05/04/2021: 91.1 fL Hct: 05/04/2021: 29.6 % (L) Hgb: 05/04/2021: 10.2 g/dL (L) WBC: 05/04/2021: 16.7 K/cumm (H) MPV: 05/04/2021: 12.0 fL Platelets: 05/04/2021: 332 K/cumm RDW CV: 05/04/2021: 14.3 % RDW Sd: 05/04/2021: 47.9 fL BMP Glucose: 05/04/2021: 231 mg/dL (H) Calcium: 05/04/2021: 8.5 mg/dL Sodium: 05/04/2021: 131 mmol/L (L) Potassium: 05/04/2021: 4.0 mmol/L CO2: 05/04/2021: 20 mmol/L (L) Chloride: 05/04/2021: 100 mmol/L BUN: 05/04/2021: 7 mg/dL (L) Creatinine: 05/04/2021: 0.58 mg/dL (L) CONCLUSIONS: Technically difficult study with limited views. Normal left ventricular size. Left ventricle not well visualized. There is severe hypokinesis of the mid anteroseptal, anterior, and apical alberto. Normal left ventricular wall thickness. Impaired diastolic relaxation Grade I. Ejection fraction is visually estimated at 40 %. Normal right ventricular size. Normal right ventricular systolic function. Normal structure of the mitral valve. Trivial regurgitation of the mitral valve. Normal structure of the tricuspid valve. Trivial regurgitation in the tricuspid valve. Electronically Signed By: Rylee Brito DO, VILMA GODINEZ, FAISAL 2021-05-02 14:07:25 DIESEL LOCOMOTIVE FIRER DOS Physical Exam Medical history, medications, and allergies reviewed. Attestation: I endorse the findings of the anesthesia pre-evaluation assessment dated: 05/04/2021. Airway Exam: Mallampati: II Cervical ROM: FROM TM distance: >4 Cardiovascular Exam: Rate: regular Rhythm: regular Pulmonary Exam: LCTA, bilat Dental Exam: Poor dentition, chipped and missing Skin Exam: Skin is warm. Current state: Patient's current state is cooperative. Anesthesia Plan ASA 4 My patient is approved for the Anesthesia Controlled Medication protocol when under care of a TREE WRAPPER Planned anesthesia: General Team communication plan: oral ET tube Invasive Monitors Planned: Invasive monitors planned: arterial line, AURORA and pulmonary artery catheter. Induction: Induction: intravenous. Postoperative Plan: Postoperative administration opioids intended. Postoperative mechanical ventilation intended. Patient's planned disposition post procedure is ICU. No trial extubation planned. Informed Consent: Discussed plan with attending, TREE WRAPPER and AA. Anesthesia plan and risks discussed with patient. Consent and Attending signature: I and/or my designee have discussed the anesthesia plan, benefits, possible alternatives, parental presence at time of induction (if indicated), and clinically relevant risks that may include dental injury, unintentional awareness, and/or other complications. The patient and/or parent/legal guardian understand, and agree to proceed. All questions answered. EL LOCOMOTIVE FIRER EL LOCOMOTIVE FIRER documented in this encounter Miscellaneous Notes * Post-Perfusion - Lc Roger - 05/04/2021 7:49 PM CST Medications phenylephrine (BRYSON-SYNEPHRINE) injection (mcg) Date/Time Rate/Dose/Volume Action Admin User Audit 05/04/21 1609 400 mcg Given Lc Roger 1615 400 mcg Given Lc Roger 1619 200 mcg Given Lc Roger 1635 300 mcg Given Lc Roger 1641 200 mcg Given Lc Roger 1653 200 mcg Given Lc Roger 1702 200 mcg Given Lc Roger 1713 200 mcg Given Lc Roger 1724 200 mcg Given Lc Roger 1749 200 mcg Given Lc Roger 1751 200 mcg Given Lc Roger 1756 200 mcg Given Lc Roger 1813 200 mcg Given Lc Roger sodium bicarbonate injection 1 mEq/mL (mEq) Date/Time Rate/Dose/Volume Action Admin User Audit 05/04/21 1621 25 mEq Given Lc Roger 1708 25 mEq Given Lc Roger sodium bicarbonate (mEq) Date/Time Rate/Dose/Volume Action Admin User Audit 05/04/21 1931 50 mEq (over 15 min) Given Robert Duran AA lidocaine PF (XYLOCAINE) injection 2 % (mg) Date/Time Rate/Dose/Volume Action Admin User Audit 05/04/21 1802 100 mg Given Lc Roger 1803 100 mg Given Lc Roger heparin injection 1,000 unit/mL (Units) Date/Time Rate/Dose/Volume Action Admin User Audit 05/04/21 1708 5,000 Units Given Lc Roger norepinephrine IV syringe 8 mcg/mL (mcg) Date/Time Rate/Dose/Volume Action Admin User Audit 05/04/21 1607 2 mcg Given Lc Roger 1615 2 mcg Given Lc Roger 1619 2 mcg Given RogerLc garrett 1635 2 mcg Given Lc Roger 1646 2 mcg Given Lc Roger 1653 2 mcg Given Lc Roger 1720 2 mcg Given Lc Roger 1723 2 mcg Given Lc Roger 1735 2 mcg Given Lc Roger 1751 2 mcg Given Lc Roger 1755 2 mcg Given Lc Roger 1814 2 mcg Given Lc Roger midazolam (mg) Date/Time Rate/Dose/Volume Action Admin User Audit 05/04/21 1343 2 mg Given Robert Duran, AA 1820 2 mg Given Robert Duran AA fentaNYL (mcg) Date/Time Rate/Dose/Volume Action Admin User Audit 05/04/21 1349 750 mcg Given Robert Duran, AA 1432 50 mcg Given Robert Duran, AA 1433 50 mcg Given Robert Duran, AA 1446 50 mcg Given Robert Duran, TONI lidocaine syringe 2% (mg) Date/Time Rate/Dose/Volume Action Admin User Audit 05/04/21 1349 80 mg Given Robert Duran AA etomidate (mg) Date/Time Rate/Dose/Volume Action Admin User Audit 05/04/21 1349 10 mg Given Robert Duran AA rocuronium (mg) Date/Time Rate/Dose/Volume Action Admin User Audit 05/04/21 1350 50 mg Given Robert Duran AA 1439 20 mg Given Robert Duran, TONI 1555 30 mg Given Robert Duran, TONI 1813 50 mg Given Robert Duran AA phenylephrine (mcg) Date/Time Rate/Dose/Volume Action Admin User Audit 05/04/21 1503 50 mcg Given Robert Duran AA vancomycin (mg) Date/Time Rate/Dose/Volume Action Admin User Audit 05/04/21 1421 1,500 mg (over 90 min) Given Robert Duran AA ceFAZolin (mg) Date/Time Rate/Dose/Volume Action Admin User Audit 05/04/21 1416 2,000 mg Given Robert Duran AA tranexamic acid (CYKLOKAPRON) 1,000 mg in sodium chloride 0.9% 100 mL (10 mg/mL) infusion (mg/kg/hr) Dosing weight: 91.3 Date/Time Rate/Dose/Volume Action Admin User Audit 05/04/21 1424 1 mg/kg/hr - 9.13 mL/hr New Bag Robert Duran AA 1935 Stopped Robert Duran AA heparin 5,000 unit/ml (Units) Date/Time Rate/Dose/Volume Action Admin User Audit 05/04/21 1525 35,000 Units Given Robert Duran AA insulin regular (HumuLIN R, NovoLIN R) 100 Units in sodium chloride 0.9% 100 mL (1 Units/mL) infusion (Units/hr) Date/Time Rate/Dose/Volume Action Admin User Audit 05/04/21 1539 3 Units/hr - 3 mL/hr New Bag Robert Duran AA 1621 4.3 Units/hr - 4.3 mL/hr Rate Change Robert Duran AA norepinephrine (LEVOPHED) 8,000 mcg in dextrose 5% 250 mL (32 mcg/mL) infusion (mcg/kg/min) Dosing weight: 91.3 Date/Time Rate/Dose/Volume Action Admin User Audit 05/04/21 1410 0.04 mcg/kg/min - 6.848 mL/hr New Bag Duran, Robert Garrett, AA 1415 0.05 mcg/kg/min - 8.559 mL/hr Rate Change Duran, Robert Garrett, AA 1435 0.03 mcg/kg/min - 5.136 mL/hr Rate Change Duran, Robert Garrett, AA 1459 0.05 mcg/kg/min - 8.559 mL/hr Rate Change Duran, Robert Garrett, AA 1504 0.06 mcg/kg/min - 10.271 mL/hr Rate Change Duran, Robert Garrett, AA 1522 0.05 mcg/kg/min - 8.559 mL/hr Rate Change Duran, Robert Garrett, AA 1532 0.06 mcg/kg/min - 10.271 mL/hr Rate Change Duran, Robert Garrett, AA 1542 0.03 mcg/kg/min - 5.136 mL/hr Rate Change Duran, Robert Garrett, AA 1549 0.05 mcg/kg/min - 8.559 mL/hr Rate Change Duran, Robert Garrett, AA 1559 Stopped Duran, Robert Garrett, AA 1800 0.05 mcg/kg/min - 8.559 mL/hr New Bag Duran, Robert Garrett, AA 1910 0.1 mcg/kg/min - 17.119 mL/hr Rate Change Duran, Robert Garrett, AA calcium chloride (g) Date/Time Rate/Dose/Volume Action Admin User Audit 05/04/21 1850 0.5 g Given Duran, Robert Garrett, AA 1938 0.5 g Given Duran, Robert Garrett, AA protamine (mg) Date/Time Rate/Dose/Volume Action Admin User Audit 05/04/21 1823 300 mg (over 10 min) Given Duran, Robert Garrett, AA electrolyte-A (PLASMA-LYTE) 400 mL with albumin 150 mL, heparin 10 mL, mannitol 12.5 g, sodium bicarbonate 50 mL solution (mL) Date/Time Rate/Dose/Volume Action Admin User Audit 05/04/21 1313 660 mL [dose] - 660 mL [vol] New Bag Lc Roger Comment: 27.5 g mannitol to prime tranexamic acid (mg) Date/Time Rate/Dose/Volume Action Admin User Audit 05/04/21 1416 1,000 mg (over 10 min) Given Robert Duran AA potassium arrest solution (mEq) Date/Time Rate/Dose/Volume Action Admin User Audit 05/04/21 1803 23 mEq Given Lc Roger Lactated Ringer's (LR) 16 mL with adenosine (ADENOCARD) 14 mL, lidocaine (cardiac) (XYLOCAINE) 5 mL, magnesium sulfate 4 g solution (mL) Date/Time Rate/Dose/Volume Action Admin User Audit 05/04/21 1803 39 mL New Bag Lc Roger DOBUTamine (mcg/kg/min) Dosing weight: 91.3 Date/Time Rate/Dose/Volume Action Admin User Audit 05/04/21 1804 5 mcg/kg/min - 6.848 mL/hr New Bag Can Jones MD dexmedeTOMIDine infusion (mcg/kg/hr) Dosing weight: 91.3 Date/Time Rate/Dose/Volume Action Admin User Audit 05/04/21 1820 0.5 mcg/kg/hr - 11.413 mL/hr New Bag Robert Duran AA NS 0.9% (mL) Date/Time Rate/Dose/Volume Action Admin User Audit 05/04/21 1338 New Bag Robert Duran AA electrolyte-A (PLASMA-LYTE) infusion (mL) Date/Time Rate/Dose/Volume Action Admin User Audit 05/04/21 1409 New Bag Robert Duran AA PRBC - CROSSMATCHED W2024 21 [id number] (mL) Date/Time Rate/Volume Action Admin User Audit 05/04/21 1627 New Bag Lc Roger 1628 250 mL Stopped Lc Roger W2011 21 [id number] (mL) Date/Time Rate/Volume Action Admin User Audit 05/04/21 1722 New Bag Lc Roger C 1723 250 mL Stopped Lc Roger FFP - CROSSMATCHED W2024 21 [id number] (mL) Date/Time Rate/Volume Action Admin User Audit 05/04/21 1840 New Bag Robert Duran, AA 1841 150 mL Stopped Robert Duran, AA W2011 21 [id number] (mL) Date/Time Rate/Volume Action Admin User Audit 05/04/21 1949 New Bag Robert Duran, AA PLATELETS - CROSSMATCHED W2011 21 [id number] (mL) Date/Time Rate/Volume Action Admin User Audit 05/04/21 1848 New Bag Robert Duran, AA 1849 200 mL Stopped Robert Duran, AA W2011 21 [id number] (mL) Date/Time Rate/Volume Action Admin User Audit 05/04/21 1928 New Bag Robert Duran, AA 1929 200 mL Stopped Robert Duran, AA Events Date Time Event 05/04/2021 0846 Ready for Procedure 1337 Patient in Room 1338 Anesthesia Start 1338 Start Data Collection 1345 Quick Note 35,000 units heparin at 1525 Post ACT = 528 IABP at 1:1 off at 1558 Pump Flow l/min 1.8 Ci = 3.8 2.0 Ci = 4.2 2.4 Ci = 5.1 Pump time = 145 Cross Clamp time =116 CABG x 4 (L) Hgb = 6.5 (L) Hct = 20 (L) Temp = 30 (H) Glu = 217 1349 Induction The patient was reevaluated immediately before moderate or deep sedation use and before anesthesia induction. 1354 Intubation 1408 Line Placed 1412 AURORA placed 1416 Anesthesia Ready 1425 Incision Start 1425 Procedure Start 1430 Lungs Down 1430 Sternotomy 1524 Perfusion Ready 1543 Quick Note ACT 528 1558 CPB ON 1604 Vacuum Assist On 1605 Ultrafiltration On 1605 Cooling Start 1607 Aortic Clamp ON 1614 Labs Drawn 1703 Labs Drawn 1738 Rewarming Start 1801 Aortic Clamp OFF 1820 Vacuum Assist Off 1820 Ultrafiltration Off 1823 CPB OFF Cosigned by Salbador Granados MD at 05/05/2021 11:33 AM DIESEL LOCOMOTIVE FIRER EL LOCOMOTIVE FIRER EL LOCOMOTIVE FIRER documented in this encounter Plan of Treatment Not on file documented as of this encounter Procedures Procedure Name Priority Date/Time Associated Diagnosis Comments ANESTHESIA CENTRAL VENOUS LINE PLACEMENT Routine 05/04/2021 2:40 PM DIESEL LOCOMOTIVE FIRER ANESTHESIA CENTRAL VENOUS LINE PLACEMENT Routine 05/04/2021 2:40 PM DIESEL LOCOMOTIVE FIRER ANESTHESIA ARTERIAL LINE PLACEMENT Routine 05/04/2021 2:28 PM DIESEL LOCOMOTIVE FIRER GA AN ELECTIVE ENDOTRACHEAL AIRWAY Routine 05/04/2021 1:54 PM DIESEL LOCOMOTIVE FIRER documented in this encounter Results * BW AN SHEATH INTRODUCER PERFORMABLE, PULMONARY ARTERY CATH (05/04/2021 2:40 PM DIESEL LOCOMOTIVE FIRER) Narrative Robert Duran AA - 05/04/2021 2:40 PM DIESEL LOCOMOTIVE FIRER Robert Duran AA ? 05/04/2021 ??2:41 PM Central Venous Line Patient location: OR Indication: central venous access Staff: Supervising provider: Can Jones MD Placed by: AA: Robert Duran AA Procedure prep: Patient position: Trendelenburg. PPE: provider hat/mask, sterile gloves, sterile gown, provider hand hygiene and full body drape. Prep solution: chlorhexadine/alcohol was applied to area. Ultrasound was used prior to prep. Central line: Laterality: right Site: internal jugular Catheter type: multi-lumen access catheter (MAC) Catheter size: 9 Fr. Technique: anatomy identified with ultrasound, vein located with finder needle, Seldinger technique, wire threaded easily and wire removed intact Venous verification: pressure transduced Post insertion: all ports aspirated, all ports flushed easily, line sutured in place and occlusive dressing applied Chlorhexidine patch applied: yes Number of attempts: 1 PA catheter placement: PA catheter type: oximetric PA catheter size: 8 Fr PA catheter laterality: right PA catheter site: internal jugular Placement guided by: pressure tracing changes and verified by TEENo Assessment: Events: patient tolerated procedure well with no complications Can Jones MD ANESTHESIA ORDERABLES Final Result * Arterial Line (05/04/2021 2:28 PM DIESEL LOCOMOTIVE FIRER) Robert Meier AA - 05/04/2021 2:28 PM DIESEL LOCOMOTIVE FIRER Robert Duran AA ? 05/04/2021 ??2:30 PM Arterial Line Patient location: OR Indication: continuous blood pressure monitoring and blood sampling needed Staff: Supervising provider: Can Jones MD Placed by: AA: Jasiel Norman AA Procedure prep: Prep: provider hat/mask Arterial line: Catheter size: 20 gauge Catheter length: 1 and 3/4 inch Catheter type: wire-guided catheter Seldinger technique: yes Laterality: left Site: radial artery Line secured: tape and Tegaderm Results: good waveform and good blood return Number of attempts: 1 Assessment: Events: patient tolerated procedure well with no complications Can Jones MD ANESTHESIA ORDERABLES Final Result * GA AN ELECTIVE ENDOTRACHEAL AIRWAY (05/04/2021 1:54 PM DIESEL LOCOMOTIVE FIRER) Robert Meier AA - 05/04/2021 1:54 PM DIESEL LOCOMOTIVE FIRER Robert Duran AA ? 05/04/2021 ??2:35 PM Airway Patient location: OR Urgency: elective Date/time: 05/04/2021 1:54 PM Indications for airway management: anesthesia Difficult airway: no Staff: Supervising provider: Can Jones MD Placed by: AA: Robert Duran AA Emergent airway documentation: Risks and benefits discussed: yes Consent obtained: yes Consent given by: patient Airway prep: Preoxygenated: yes Patient position: sniffing Mask difficulty assessment: 2 - vent by mask + OA or adjuvant Spontaneous ventilation during airway: absent Sedation level during airway: GA Final airway details: Final airway type: endotracheal airway Tube type: ETT ETT size: 8.0 mm Cuffed: yes Technique used for successful ETT placement: direct laryngoscopy Devices/Methods used in placement: stylet Insertion site: oral Blade type: Neptali Blade size: 4 Cormack-Lehane (direct): grade I - full view of glottis Cuff volume: 8 mL Cuff inflated with: air ETT to lips: 23 cm Placement verified by: auscultation and CO2 detection Airway secured with: silk tape Number of attempts: 1 Additional comments: Desmond GUADARRAMA performed DL and intubation under supervision us Can Jones MD ANESTHESIA ORDERABLES Final Result documented in this encounter Visit Diagnoses Not on filedocumented in this encounter Administered Medications Inactive Administered Medications - up to 3 most recent administrations Medication Order MAR Action Action Date Dose Rate Site calcium chloride IV syringe intravenous, As needed, Starting on Tue05/04/21 at 1938, Anesthesia Intra-op Given 05/04/2021 7:38 PM DIESEL LOCOMOTIVE FIRER 0.5 g Given 05/04/2021 6:50 PM DIESEL LOCOMOTIVE FIRER 0.5 g ceFAZolin (ANCEF) injection intravenous, Administer over 3 Minutes, As needed, Starting on Tue05/04/21 at 1416, Anesthesia Intra-op Given 05/04/2021 2:16 PM DIESEL LOCOMOTIVE FIRER 2,000 mg dexmedeTOMIDine in 0.9% sodium chloride (PRECEDEX) 400 mcg/100 mL (4 mcg/mL) infusion (premix) intravenous, Continuous PRN, Starting on Tue05/04/21 at 1820, Anesthesia Intra-op New Bag 05/04/2021 6:20 PM DIESEL LOCOMOTIVE FIRER 0.5 mcg/kg/hr 11.413 mL/hr DOBUTamine in dextrose 5% (DOBUTREX) 1,000 mg/250 mL (4,000 mcg/mL) infusion (premix) intravenous, Continuous PRN, Starting on Tue05/04/21 at 1804, Anesthesia Intra-op New Bag 05/04/2021 6:04 PM DIESEL LOCOMOTIVE FIRER 5 mcg/kg/min 6.848 mL/hr electrolyte-A (PLASMA-LYTE) 400 mL with albumin 150 mL, heparin 10 mL, mannitol 12.5 g, sodium bicarbonate 50 mL solution device prime, Continuous PRN, Starting on Tue05/04/21 at 1313, Anesthesia Intra-op New Bag 05/04/2021 1:13 PM DIESEL LOCOMOTIVE FIRER 660 mL electrolyte-A (PLASMA-LYTE) infusion intravenous, Continuous PRN, Starting on Tue05/04/21 at 1409, Anesthesia Intra-op New Bag 05/04/2021 2:09 PM DIESEL LOCOMOTIVE FIRER etomidate (AMIDATE) injection intravenous, Administer over 1 Minutes, As needed, Starting on Tue05/04/21 at 1349, Anesthesia Intra-op Given 05/04/2021 1:49 PM DIESEL LOCOMOTIVE FIRER 10 mg fentaNYL (SUBLIMAZE) preservative free injection intravenous, As needed, Starting on Tue05/04/21 at 1349, Anesthesia Intra-op Given 05/04/2021 6:25 PM DIESEL LOCOMOTIVE FIRER 100 mcg Given 05/04/2021 6:05 PM DIESEL LOCOMOTIVE FIRER 100 mcg Given 05/04/2021 5:53 PM DIESEL LOCOMOTIVE FIRER 50 mcg heparin 1,000 unit/mL injection intravenous, As needed, Starting on Tue05/04/21 at 1708, Anesthesia Intra-op Given 05/04/2021 5:08 PM DIESEL LOCOMOTIVE FIRER 5,000 Units heparin 5,000 unit/mL injection intravenous, As needed, Starting on Tue05/04/21 at 1525, Anesthesia Intra-op Given 05/04/2021 3:25 PM DIESEL LOCOMOTIVE FIRER 35,000 Units insulin regular (HumuLIN R, NovoLIN R) 100 Units in sodium chloride 0.9% 100 mL (1 Units/mL) infusion intravenous, Continuous PRN, Starting on Tue05/04/21 at 1539, Anesthesia Intra-op Rate/Dose Change 05/04/2021 4:21 PM DIESEL LOCOMOTIVE FIRER 4.3 Units/hr 4.3 mL/hr New Bag 05/04/2021 3:39 PM DIESEL LOCOMOTIVE FIRER 3 Units/hr 3 mL/hr Lactated Ringer's (LR) 16 mL with adenosine (ADENOCARD) 14 mL, lidocaine (cardiac) (XYLOCAINE) 5 mL, magnesium sulfate 4 g solution intravenous, Continuous PRN, Starting on Tue05/04/21 at 1803, Anesthesia Intra-op New Bag 05/04/2021 6:03 PM DIESEL LOCOMOTIVE FIRER 39 mL lidocaine (XYLOCAINE) 20 mg/mL (2 %) preservative free injection intravenous, As needed, Starting on Tue05/04/21 at 1802, Anesthesia Intra-op Given 05/04/2021 6:03 PM DIESEL LOCOMOTIVE FIRER 100 mg Given 05/04/2021 6:02 PM DIESEL LOCOMOTIVE FIRER 100 mg lidocaine (XYLOCAINE) 40 mg/2 mL (2%) preservative free injection syringe intravenous, As needed, Starting on Tue05/04/21 at 1349, Anesthesia Intra-op Given 05/04/2021 1:49 PM DIESEL LOCOMOTIVE FIRER 80 mg midazolam (VERSED) 1 mg/mL preservative free injection intravenous, Administer over 2 Minutes, As needed, Starting on Tue05/04/21 at 1343, Anesthesia Intra-op Given 05/04/2021 7:53 PM DIESEL LOCOMOTIVE FIRER 1 mg Given 05/04/2021 6:20 PM DIESEL LOCOMOTIVE FIRER 2 mg Given 05/04/2021 1:43 PM DIESEL LOCOMOTIVE FIRER 2 mg norepinephrine (LEVOPHED) 8,000 mcg in dextrose 5% 250 mL (32 mcg/mL) infusion intravenous, Continuous PRN, Starting on Tue05/04/21 at 1410, Anesthesia Intra-op Rate/Dose Change 05/04/2021 7:10 PM DIESEL LOCOMOTIVE FIRER 0.1 mcg/kg/min 17.119 mL/hr New Bag 05/04/2021 6:00 PM DIESEL LOCOMOTIVE FIRER 0.05 mcg/kg/min 8.559 mL /hr Rate/Dose Change 05/04/2021 3:49 PM DIESEL LOCOMOTIVE FIRER 0.05 mcg/kg/min 8. 559 mL/hr norepinephrine (LEVOPHED) syringe intravenous, As needed, Starting on Tue05/04/21 at 1607, Anesthesia Intra-op Given 05/04/2021 6:14 PM DIESEL LOCOMOTIVE FIRER 2 mcg Given 05/04/2021 5:55 PM DIESEL LOCOMOTIVE FIRER 2 mcg Given 05/04/2021 5:51 PM DIESEL LOCOMOTIVE FIRER 2 mcg phenylephrine (BRYSON-SYNEPHRINE) 1 mg/10 mL (100 mcg/mL) in sodium chloride 0.9% (premix) intravenous, As needed, Starting on Tue05/04/21 at 1503, Anesthesia Intra-op Given 05/04/2021 3:03 PM DIESEL LOCOMOTIVE FIRER 50 mcg phenylephrine (BRYSON-SYNEPHRINE) injection intravenous, As needed, Starting on Tue05/04/21 at 1609, Anesthesia Intra-op Given 05/04/2021 6:13 PM DIESEL LOCOMOTIVE FIRER 200 mc g Given 05/04/2021 5:56 PM DIESEL LOCOMOTIVE FIRER 200 mcg Given 05/04/2021 5:51 PM DIESEL LOCOMOTIVE FIRER 200 mcg potassium chloride injection intravenous, As needed, Starting on Tue05/04/21 at 1803, Anesthesia Intra-op Given 05/04/2021 6:03 PM DIESEL LOCOMOTIVE FIRER 23 mEq protamine injection intravenous, As needed, Starting on Tue05/04/21 at 1823, Anesthesia Intra-op, Indications: Heparin ToxicityIndications:Heparin Toxicity Given 05/04/2021 6:23 PM DIESEL LOCOMOTIVE FIRER 300 mg rocuronium (ZEMURON) injection intravenous, As needed, Starting on Tue05/04/21 at 1350, Anesthesia Intra-op Given 05/04/2021 6:13 PM DIESEL LOCOMOTIVE FIRER 50 mg Given 05/04/2021 3:55 PM DIESEL LOCOMOTIVE FIRER 30 mg Given 05/04/2021 2:39 PM DIESEL LOCOMOTIVE FIRER 20 mg sodium bicarbonate 8.4 % (1 mEq/mL) injection intravenous, Administer over 5 Minutes, As needed, Starting on Tue05/04/21 at 1621, Anesthesia Intra-op Given 05/04/2021 5:08 PM DIESEL LOCOMOTIVE FIRER 25 mEq Given 05/04/2021 4:21 PM DIESEL LOCOMOTIVE FIRER 25 mEq sodium bicarbonate 8.4 % (1 mEq/mL) injection intravenous, Administer over 5 Minutes, As needed, Starting on Tue05/04/21 at 1931, Anesthesia Intra-op Given 05/04/2021 7:31 PM DIESEL LOCOMOTIVE FIRER 50 mEq sodium chloride 0.9% infusion intravenous, Continuous PRN, Starting on Tue05/04/21 at 1338, Anesthesia Intra-op New Bag 05/04/2021 1:38 PM DIESEL LOCOMOTIVE FIRER tranexamic acid (CYKLOKAPRON) 1,000 mg in sodium chloride 0.9% 100 mL (10 mg/mL) infusion intravenous, Continuous PRN, Starting on Tue05/04/21 at 1424, Anesthesia Intra-op New Bag 05/04/2021 2:24 PM DIESEL LOCOMOTIVE FIRER 1 mg/kg/hr 9.13 mL/hr tranexamic acid (CYKLOKAPRON) 1,000 mg/10 mL (100 mg/mL) solution intravenous, As needed, Starting on Tue05/04/21 at 1416, Anesthesia Intra-op Given 05/04/2021 2:16 PM DIESEL LOCOMOTIVE FIRER 1,000 mg Transfuse cryoprecipitate (pooled units) Timed New Bag 05/04/2021 8:06 PM DIESEL LOCOMOTIVE FIRER Transfuse plasma Timed New Bag 05/04/2021 6:40 PM DIESEL LOCOMOTIVE FIRER Transfuse plasma Timed New Bag 05/04/2021 7:49 PM DIESEL LOCOMOTIVE FIRER Transfuse platelets Timed New Bag 05/04/2021 6:48 PM DIESEL LOCOMOTIVE FIRER Transfuse platelets Timed New Bag 05/04/2021 7:28 PM DIESEL LOCOMOTIVE FIRER Transfuse RBC Timed New Bag 05/04/2021 4:27 PM DIESEL LOCOMOTIVE FIRER Transfuse RBC Timed New Bag 05/04/2021 5:22 PM DIESEL LOCOMOTIVE FIRER vancomycin (VANCOCIN) solution intravenous, As needed, Starting on 05/04/21 at 1421, Anesthesia Intra-op Given 05/04/2021 2:21 PM DIESEL LOCOMOTIVE FIRER 1,500 mg documented in this encounter Care Teams Judo Teacher Relationship Specialty Start Date End Date Unknown, Notinfile PCP - General 05/01/21 [place] [address] [address] [address] Surgeon Cardiothoracic Surgery 05/01/21 documented as of this encounter
--- OUTSIDE RECORDS SUMMARY | 2024-06-21 19:59 | XMS_ITS | Encounter Summary ---
Author Organization [facility] Healthcare Address [address] [place] [address] Care Team Providers Care Senior Engineer Name Role Phone Unknown, Notinfile Primary Care Provider Unavail able Salbador Granados MD Unavailable [phone] Encounter Details Date Type Department Care Team (Latest Contact Info) Description 05/01/2021 8:13 PM LONG LINES OPERATOR - 05/01/2021 11:59 PM LONG LINES OPERATOR Hospital Encounter [facility] [address] [place] [address] Discharge Disposition: Discharge to home or self care Social History Tobacco Use Types Packs/Day Years Used Date Smoking Tobacco: Never Assessed Comments:Smoking History Pac ks/day: 0 Packs Alcohol Use Standard Drinks/Week Comments No 0 (1 standard drink = 0.6 oz pur e alcohol) Sex and Gender Information Value Date Recorded Sex Assigned at Not on file Legal Sex Male 11:30 PM LONG LINES OPERATOR Gender Identity Not on file Sexual [...] VIEW ED Urgent/IP Urgent 05/01/2021 8:28 PM LONG LINES OPERATOR documented in this encounter Results * XR Chest 1 Vw Portable (05/01/2021 8:28 PM LONG LINES OPERATOR) Anatomical Region Laterality Modality Body, Chest N/A Computed Radiogr aphy 05/02/2021 5:02 AM LONG LINES OPERATOR Impressions 05/02/2021 5:02 AM LONG LINES OPERATOR Mixed reticular and alveolar opacities are demonstrated in all lung lobes but demonstrate an upper lobe and perihilar predominance. Findings may represent pulmonary edema on background of centrilobular emphysematous changes. ?? Electronically signed by: Richard Lopez II, D.O. Narrative 05/02/2021 5:02 AM LONG LINES OPERATOR EXAMINATION: XR CHEST 1 VIEW DATE: 05/01/2021 [...] changes. Electronically signed by: Richard Lopez II, BrandiOAldo Wally Aguilar DO IMG XR PROCEDURES Final Result documented in this encounter Visit Diagnoses Not on filedocumented in this encounter Care Teams Senior Engineer Relationship Specialty Start Date End Date Unknown, Notinfile PCP - General 05/01/21 [place] [id number] [address] [facility] [address] [address] Surgeon Cardiothoracic Surgery 05/01/21 documented as of this encounter
--- OUTSIDE RECORDS SUMMARY | 2024-06-21 19:59 | XMS_ITS | Encounter Summary ---
Author Organization [facility] Healthcare Address [address] [place] [address] Care Team Providers Care Stationary Steam Engineer Name Role Phone Unknown, Notinfile Primary Care Provider Unavail able Salbador Granados MD Unavailable [phone] Encounter Details Date Type Department Care Team (Latest Contact Info) Description 05/02/2021 5:11 AM ANCILLARY SPECIALIST - 05/02/2021 11:59 PM ANCILLARY SPECIALIST Hospital Encounter [facility] Diagnostic [facility] [address] [id number] Discharge Disposition: Discharge to home or self [...] on file Legal Sex Male 11:30 PM ANCILLARY SPECIALIST Gender Identity Not on file Sexual [...] Comments XR CHEST 1 VIEW IP Routine 05/02/2021 5:40 AM ANCILLARY SPECIALIST documented in this encounter Results * XR Chest 1 Vw Portable (05/02/2021 5:40 AM ANCILLARY SPECIALIST) Anatomical Region Laterality Modality Body, Chest N/A Computed Radiogr aphy 05/02/2021 6:41 AM ANCILLARY SPECIALIST Impressions 05/02/2021 6:41 AM ANCILLARY SPECIALIST 1. ??Appropriately positioned intra-aortic balloon pump. 2. ??Similar mixed reticular and alveolar opacities most notable in the bilateral upper lobes and perihilar region. Electronically signed by: Richard Lopez II, D.O. Narrative 05/02/2021 6:41 AM ANCILLARY SPECIALIST EXAMINATION: XR CHEST 1 VIEW DATE: 05/02/2021 [...] Electronically signed by: Richard Lopez II, D.O. Rubin Clayton MD IMG XR PROCEDURES Final Result documented in this encounter Visit Diagnoses Not on filedocumented in this encounter Care Teams Stationary Steam Engineer Relationship Specialty Start Date End Date Unknown, Notinfile PCP - General 05/01/21 [place] [id number] [facility] [address] [address] Surgeon Cardiothoracic Surgery 05/01/21 documented as of this encounter
--- OUTSIDE RECORDS SUMMARY | 2024-06-21 20:01 | XMS_ITS | Encounter Summary ---
Author Organization [facility] Healthcare Address [address] [place] [address] Care Team Providers Care Felling Bucking Supervisor Name Role Phone Unknown, Notinfile Primary Care Provider Unavail able Rhina Granados MD Unavailable [phone] Encounter Details Date Type Department Care Team (Late st Contact Info) Description 05/01/2021 3:59 PM MANAGER ED - 05/01/2021 4:59 PM MANAGER ED Surgery [facility] Cardiac Catheterization Lab [address] [place] [address] Nalini Clayton MD [facility] [place] [address] PCI PTCA - MAJOR CORONARY [id number] Surgery Details Date/Time Status Location OR Service Patient Class Case Class Case Type Trauma Case? 05/01/2021 3:59 PM Posted CARDIAC HEAD OF PRECISION TARGETING [facility] 02 Cardiovascular Emergency Emergent Panel 1 Procedure LRB Anes Op Region Wound Class Comments PCI PTCA - MAJOR CORONARY 74362 N/A Conscious Sedation PCI PTCA EA ADDTN'L BRANCH O F MAJOR CORONARY (+) [id number] IABP INSERTION, PERCUTANEOUS 74986 N/A Surgeon Surgeon Role Service Panel Nalini Clayton MD Primary Cardiovascular 1 documented in this encounter Social History [...] on file Legal Sex Male 11:30 PM MANAGER ED Gender Identity Not on file Sexual Orientation Not on file documented as of this encounter Discharge Summaries * Anibal Lara MD - 06/03/2021 11:26 AM CST Inpatient Discharge Summary BRIEF OVERVIEW Admitting Provider: Nalini Clayton MD Discharge Provider: Robbie Celeste MD Primary Care Physician at Discharge: Unknown, Notinfile None Admission Date: 05/01/2021 Discharge Date: 06/03/2021 Admission Location: [facility] Problems/Diagnoses: Principal Problem: ST elevation myocardial infarction (STEMI) (HCC) Resolved Problems: No resolved hospital problems. DETAILS OF HOSPITAL STAY Presenting Problem/History of Present Illness: Chest pain Hospital Course: Patient is a 60 y.o. male with past medical history of CAD status post TX, hypertension, hyperlipidemia, PVD, COPD and tobacco abuse who presented to the hospital due to chest pain. Per review of therecords patient had bladder surgery yesterday at [facility]. He was dischargedhome but returned back to the hospital due to dizziness. He states he was trying to go home when hesuddenly felt dizzy and broke out in a sweat. After arrival to [facility] patient complained chest pain and repeat EKG was performed which showed ST elevation in anterior chest leads. Due to the above patient was transferred to [facility] for further evaluation and care. [...] beta octavia 2. Acute hypoxemic respiratory failure: 2/2 COVID-19. Transferred to ICU 05/17 for worsening [...] evacuation by urology on 05/14. TURBT at [place]. Osorio catheter in place. Voiding trial today. [...] Instructions for follow-up (appointment date and time): [id number] Recommend to eat a generally healthy diet [...] medication as directed by your doctor. Call [phone] to speak with a dietitian about any diet related concerns. Recommend to follow up with outpatient nutrition counseling, ask your doctor for a referral and call [phone] to make an appointment. Other Instructions Ambulatory referral to Home Health Service Line: Home Health Primary disciplines requested: [facility]: Wound/ Ostomy Care Physician [...] route every day Generic drug: pantoprazole DR senna-docusate 8.6-50 mg Take 2 tablets by mouth every 12 (twelve) hours Commonly known as: PERICOLACE sodium bicarbonate 650 mg tablet Take 2 tablets (1,300 mg total) by mouth 2 (two) times a day Outpatient Follow-Up: Future Appointments Date Time Provider Department Center 06/16/2021 2:00 PM Rhina Granados MD [facility] [place] Contact Information for Follow-ups [facility] Home Care Services Specialty: Home Health and Hospice [address] [facility] [address] Next Steps: Follow up Questions: Service Line: Home Health Primary disciplines requested: [facility]: Wound/ Ostomy Care Physician [...] Internal Medicine Relationship: Referring Physician Lashawn [address] RD [facility] [id number] Next Steps: Follow up Instructions: 2 weeks Questions: Instructions for follow-up (appointment date and time): 2 weeks To provider: NALINI CLAYTON GER ED documented in this encounter Discharge Instructions * Discharge Instr - Diet* Cristina Anaya, RD - 05/05/2021 3:50 PM MANAGER ED Recommend to eat a generally healthy diet [...] medication as directed by your doctor. Call [phone] to speak with a dietitian about any diet related concerns. Recommend to follow up with outpatient nutrition counseling, ask your doctor for a referral and call [phone] to make an appointment. GER ED documented in this encounter Medications at Time [...] 06/03/2021 3:39 PM CST Nephrology Progress Note Reading Nephrology SUBJECTIVE 06/03/21 Weak but better. DC [...] Height: Intake/Output Summary (Last 24 hours) at 06/03/20212017 Last data filed at 06/03/2021 1300 Gross [...] Aortic atherosclerosis. No failure. The right IJ Altha-Radha catheter has been retracted with its tip [...] with left pleural fluid decreasing. No pneumothorax. Altha-Radha catheter remainsin place Impression: Decreasing failure, atelectasis [...] with left pleural fluid decreasing. No pneumothorax. Altha-Radha catheter remains in place Impression: Decreasing failure, [...] atelectasis with left pleural fluid. No pneumothorax. Altha-Radha catheter remains in place Impression: Decreasing failure. No pneumothorax. Electronically signed by: Deacon Cummings M.D. XR Chest 1 View - Portable - in AM Result Date: 05/07/2021 Narrative: EXAMINATION: XR CHEST 1 VIEW DATE: 05/07/2021 3:55 AM HISTORY: 60-year-old man follow-upcardiac surgery FINDINGS:Compared with study of the previous day, postsurgical changes in the heartand mediastinum with cardiomegaly are stable. Altha-Radha catheter remains in place. Left thoracostomy tube [...] Interval placement of endotracheal tube, nasogastric tube, Altha-Radha catheter, left thoracostomy tube and mediastinal drain [...] Echo (TTE) Limited Result Date: 05/07/2021 Narrative: [place] [address] Limited Echocardiogram Report Patient Name: DEEPAK ALVARADO : 1960 StudyDate: 05/07/2021 12:16:52 PM Gender: M Tech: SR Location: [id number] Ref.Provider: RHINA GRANADOS Height(Cm): 175 BSA: 2.1 [...] tamponade. Electronically Signed By: Gianni Francois MD, [facility] 2021-05-07 12:54:09 MANAGER ED Transthoracic Echo Complete W Doppler/CF Result Date: 05/02/2021 Narrative: [address] [address] Echocardiogram Report Patient Name: DEEPAK ALVARADO W : 1960 Study Date: 05/02/2021 8:50:02 AM Gender: M Tech: SR Location: [id number] Ref Provider: KATYAL, ALOKHeight(Cm): 175 BSA: 2.11 [...] LA Dimension MM 5.08 [ 3.00 - 4.00] cm LVOT VTI 13.82 [ 20.00 - [...] Signed By: Rylee Brito DO, FAC, [place], FAISAL 2021-05-02 14:07:25 MANAGER ED CC: CC: CC: ASSESSMENT/PLAN Hyponatremia from SIADH [...] with decompensation Continue diuresis, diuretics stopped by cobbler mckay. RHC not done. Agree with Corerika. ?? Hypokalemia from diuresis. Replace PRN. ?? [...] -monitor ?? I can be reached at [phone] with any concerns. Thank you No att. providers found for the consult. Yves Weinberg MD [employer] [phone] GER ED * Shruthi Hu COTA - 06/03/2021 3:13 [...] THEM NOW. CAITIE Tinsley 06/03/21 3:18 PM GER ED * Jose Garner MD - 06/03/2021 2:46 PM CST Infectious Disease Deepak Adair Lazarus Admit Date: 05/01/2021 LOS: 33 Days Subjective [...] 06/04/21 0559 05/17/216 al & mag hydroxide sjfceegejil-gjdkgoqafsqqckr-aihdcgpyq-nystatin (MAGIC MOUTHWASH) suspension 1-1-1-1 20 mL swish [...] ??C (98 ??F) Recent Labs Lab Units 06/03/2130306/02/21 0537 06/01/21 1132 WBC K/cumm 13.2* 15.4* 16.3* HEMOGLOBIN g/dL 9.2* 9.8* 10.3* HEMATOCRIT % 29.2* 30.5* 33.0* PLATELETS K/cumm 419* 434* 508* Recent Labs Lab Units 06/03/2130306/02/2153606/02/2153606/01/21113106/01/21 1132 BUN SERUM mg/dL -- -- CREATININE [...] acetaminophen ? ? al & mag hydroxide nehghwrddpn-drilqmesrtazivv-jrkcuyeij-nystatin ??? albuterol HFA ??? dextrose OR dextrose [...] 5. Continue supportive care Jose Garner MD [place] Infectious Disease Call [phone] 06/03/2021 2:46 PM GER ED * Roya Marquez PTA - 06/03/2021 11:38 AM CST Physical Therapy Patient refused therapy secondary to being discharged today. Asked if he would like to ambulate before he left and he states no , Reviewed sternal precautions and energy conservation w/patient. Cosigned by Hammad Camara PT at 06/03/2021 4:03 PM MANAGER ED GER ED GER ED * Lc Perez MD - 06/03/2021 10:34 AM CST Pulmonary Daily Progress Chief complaint/reason for consult: Respiratory failure. Interval History: Patient wean down to room air. Afebrile no other significant distress. COVID positive 05/19/21 Presenting History: 60 yo man w COPD, DM, CAD/stents admitted 05/01/21 with chest pain. Had recent hematuria as well. Workup revealed an acute TX. Cath showed multi-vessel CAD. Had balloon pump [...] acetaminophen ? ? al & mag hydroxide ualutdstxfq-lmevyaaaadxvaqo-jdugfzmbl-nystatin ??? albuterol ??? dextrose OR dextrose ??? [...] Assessment and Plan: Acute respiratory failure Acute TX w CAD s/p CABG x 4 on [...] Scheduled albuterol Increase activity as tolerated perspective GER ED * Nalini Clayton MD - 06/03/2021 10:04 AM CST [facility] - Cardiology [facility] Progress Note [...] found for: T3FREE No results found for: [id number] Meds MEDICATIONS FOR CURRENT ENCOUNTER: SCHEDULED MEDICATIONS: [...] 1429 ? ? al & mag hydroxide qiwqxelnoqc-hdbrzknvquvymuw-hpelhtigf-nystatin (MAGIC MOUTHWASH) suspension 1-1-1-1 20 mL swish [...] HLD -stable??on Statin ?? Nalini Clayton MD GER ED * Deirdre Hoskins, ABIOLA - 06/03/2021 9:58 AM CST Patient did [...] $ Pulmonary Stress Test Pulm Stress Test GER ED * Angelo Vance MD - 06/02/2021 9:27 [...] 06/04/21 0559 05/17/212115 al & mag hydroxide jnxxdgjooco-nwegfsrzapiceat-evhkiwqut-nystatin (MAGIC MOUTHWASH) suspension 1-1-1-1 20 mL swish [...] 434* 508* 470* Recent Labs Lab Units 06/02/2153606/01/21113106/01/21 11305/31/21 0539 05/31/21 0539 BUN SERUM mg/dL 13 -- 13 -- 16 CREATININE mg/dL 0.52* [...] acetaminophen ? ? al & mag hydroxide aisdyzvtgfl-wnqcjxphdtljlsh-pulwtnqcs-nystatin ??? albuterol ??? dextrose OR dextrose ??? [...] 5. Continue supportive care Angelo Vance MD [place] Infectious Disease Call [phone] 06/02/2021 9:27 PM GER ED * Yves Weinberg MD - 06/02/2021 8:49 PM CST Nephrology Progress Note Reading Nephrology SUBJECTIVE 06/02/21 Cough and dyspnea better. [...] 1429 ? ? al & mag hydroxide wlgsdkcvwxg-excegpmtpsofapy-rfypkfleh-nystatin (MAGIC MOUTHWASH) suspension 1-1-1-1, 20 mL, swish [...] Silviano Huddleston NP, 81 mg at 06/02/21 09 ??? atorvastatin (LIPITOR) tablet 80 mg, [...] Silviano Huddleston NP, 75 mg at 06/02/21 09 ??? dapagliflozin (FARXIGA) tablet 10 mg, 10 [...] 40 mg, 40 mg, subcutaneous, Daily-2100, Silviano Huddleston, EFREN, 40 mg at 06/01/212111 ??? glucagon injection 1 mg, 1 mg, intramuscular, Q30 Min PRN, Silviano Huddleston NP ??? guaiFENesin (ROBITUSSIN) 20 mg/mL oral liquid 200 mg, 200 mg, oral, QID PRN, Silviano Huddleston NP, 200 mg at 05/25/213 ??? insulin lispro (HumaLOG, ADMELOG) 100 unit/mL [...] Daily, Silviano Huddleston NP, 40 mg at 06/02/21 0907 ??? polyethylene glycol (MIRALAX) packet 17 g, 17 g, oral, Q12H, Silviano Huddleston NP, 17 g at 06/02/21 0908 ??? QUEtiapine (SEROquel) tablet 50 mg, 50 mg, oral, Nightly, Silviano Huddleston NP, 50 mg at 06/02/21 203 ??? senna-docusate (PERICOLACE) 8.6-50 mg per tablet 2 tablet, 2 tablet, oral, Q12H, Silviano Huddleston NP, 2 tablet at 06/02/21 0907 ??? sodium bicarbonate tablet 1,300 mg, 1,300 mg, oral, BID, Silviano Huddleston NP, 1,300 mg at 06/02/212034 ??? sodium chloride 0.9% flush 0.5-20 mL, 0.5-20 mL, intra-catheter, Q8H LEAH, Silviano Huddleston, EFREN, 10 mL at 06/02/212037 ??? vancomycin (VANCOCIN) 1,750 mg in sodium chloride 0.9% 500 mL IVPB, 1,750 mg, intravenous, Q12H, Silivano Huddleston NP, Last Rate: 258.8 mL/hr at [...] Aortic atherosclerosis. No failure. The right IJ Altha-Radha catheter has been retracted with its tip [...] with left pleural fluid decreasing. No pneumothorax. Altha-Radha catheter remainsin place Impression: Decreasing failure, atelectasis [...] with left pleural fluid decreasing. No pneumothorax. Altha-Radha catheter remains in place Impression: Decreasing failure, [...] atelectasis with left pleural fluid. No pneumothorax. Altha-Radha catheter remains in place Impression: Decreasing failure. No pneumothorax. Electronically signed by: Deacon Cummings M.D. XR Chest 1 View - Portable - in AM Result Date: 05/07/2021 Narrative: EXAMINATION: XR CHEST 1 VIEW DATE: 05/07/2021 3:55 AM HISTORY: 60-year-old man follow-upcardiac surgery FINDINGS:Compared with study of the previous day, postsurgical changes in the heartand mediastinum with cardiomegaly are stable. Altha-Radha catheter remains in place. Left thoracostomy tube [...] Interval placement of endotracheal tube, nasogastric tube, Altha-Radha catheter, left thoracostomy tube and mediastinal drain [...] Echo (TTE) Limited Result Date: 05/07/2021 Narrative: [place] [address] Limited Echocardiogram Report Patient Name: DEEPAK ALVARADO : 1960 StudyDate: 05/07/2021 12:16:52 PM Gender: M Tech: Location: [place] [address] Ref.Provider: RHINA GRANADOS Height(Cm): 175 BSA: 2.1 [...] tamponade. Electronically Signed By: Gianni Francois MD, [facility] 2021-05-07 12:54:09 MANAGER ED Transthoracic Echo Complete W Doppler/CF Result Date: 05/02/2021 Narrative: [place] [address] Echocardiogram Report Patient Name: DEEPAK ALVARADO W : 1960 Study Date: 05/02/2021 8:50:02 AM Gender: M Tech: Location: [place] [address] Ref Provider: NALINI CLAYTONHeight(Cm): 175 BSA: 2.11 [...] Signed By: Rylee Brito DO, FACJustyna, V[place], [facility] 2021-05-02 14:07:25 MANAGER ED CC: CC: CC: ASSESSMENT/PLAN Hyponatremia from SIADH [...] with decompensation Continue diuresis, diuretics stopped by cobbler mckay. RHC not done. Agree with Chandu. ?? [...] -monitor ?? I can be reached at [phone] with any concerns. Thank you Robbie Celeste MD for the consult. Yves Weinberg MD [employer] [phone] GER ED * Robbie Celeste MD - 06/02/2021 3:34 [...] 1429 ? ? al & mag hydroxide dfoubfoflxj-nnukgpzsyqdbvfi-lxqdofzlu-nystatin (MAGIC MOUTHWASH) suspension 1-1-1-1 20 mL swish [...] ST elevation myocardial infarction (STEMI) ([facility]) 05/01/2021 Assessment/Plan: 1. Acute anterior STEMI: [...] evacuation by urology on 05/14. TURBT at [place]. Osorio catheter in place. Voiding trial today. 9. V.fib 05/03: brief. Received amiodarone, dobutamine gtt. 10. DM2: continue SSI 11. Acute blood loss anemia: received blood transfusion 12. Tobacco smoking 13. Code status: Full code. 14. PT and OT evaluation. Robbie Celeste MD [facility] Pager #: [phone] This note is dictated and transcribed by M*Modal Fluency Direct direct software. Facilities Specialist variances may occur. Despite proof reading, typographical errors may occur. GER ED * Narciso Mayer MD - 06/02/2021 11:50 [...] hematuria as well. Workup revealed an acute TX. Cath showed multi-vessel CAD. Had balloon pump [...] acetaminophen ? ? al & mag hydroxide snbswvisaqy-glixbeblyoajapf-addgpttao-nystatin ??? albuterol ??? dextrose OR dextrose ??? [...] Lab/Radiology/Diagnostic Review: Labs: Recent Labs Lab Units 12/14/21 0537 06/01/21 1132 05/31/21 0539 WBC K/cumm [...] Assessment and Plan: Acute respiratory failure Acute TX w CAD s/p CABG x 4 on [...] Scheduled albuterol Increase activity as tolerated perspective GER ED * Amie Downey [facility] - 06/02/2021 11:37 AM CST Pharmacokinetic Consult [...] Day 8 of therapy Amie Downey RPh GER ED * Shruthi Hu COTA - 06/02/2021 10:35 AM CST Occupational Therapy NOTE / SESSION TYPE: DAILY PROGRESS / TREATMENT Patient's Name: Deepak Alvarado Age / Sex: 60 y.o. / male Room: [id number] : 1960 Date of service: 06/02/21 TIME [...] session: Yes Completed patient handoff and notified PAUNCH TRIMMER / RN, name: REGINA, of patient's location [...] AT EOB > STANDING AT EOB WITH TIE WORKER PER THERAPIST CGA AND INTERMITTENT MOD ASSIST FOR CORRECTION OF X 1 MODERATE LOB DURING FUNCTIONAL MOBILITY TRANSFER FROM STANDING AT EOB > SEATED AT STANDARD TOILET WITH TIE WORKER AND UTILIZATION OF MANCILLA VS. GRAB BARS FOR EXTRA STABILITY/BALANCE CGA FROM SEATED AT STANDARD TOILET > STANDING AT STANDARD TOILET WITH TOILET GRAB BARS CGA FOR SIT <> STAND FROM SEATED AT FOLD-DOWN SHOWER BENCH <> STANDING AT SHOWER GRAB BARS TO COMPLETE BATHING TASKS CGA WITH TIE WORKER FOR FUNCTIONAL MOBILITY TRANSFER FROM STANDING AT SHOWER GRAB BARS > SEATED AT BEDSIDE CHAIR TUB / SHOWER TRANSFER LOCATION: WET WALK-IN SHOWER OVERALL ASSIST LEVEL: INCIDENTAL TOUCHING ASSISTANCE DEVICE: GRAB BARS ADDITIONAL DOCUMENTATION: REQUIRED CGA WITH TIE WORKER FROM STANDING AT STANDARD TOILET > SEATED [...] Chiara Fonseca OT at 06/02/2021 4:10 PM MANAGER ED GER ED GER ED GER ED * Cristina Serrano NP - 06/02/2021 9:55 AM CST Daily Progress [...] pending SNF placement Cristina Serrano NP, MSN, ANP-[facility] 06/02/2021 9:59 AM Cosigned by Lester Batista MD at 06/02/2021 10:10 AM MANAGER ED GER ED GER ED * Narciso Mayer MD - 06/01/2021 3:24 [...] hematuria as well. Workup revealed an acute TX. Cath showed multi-vessel CAD. Had balloon pump [...] acetaminophen ? ? al & mag hydroxide nkkpwbufibi-conrnuypslyqale-hryvawtvo-nystatin ??? albuterol ??? dextrose OR dextrose ??? [...] Assessment and Plan: Acute respiratory failure Acute TX w CAD s/p CABG x 4 on [...] Scheduled albuterol Increase activity as tolerated perspective GER ED * Yves Weinberg MD - 06/01/2021 1:30 PM CST Nephrology Progress Note Reading Nephrology SUBJECTIVE 06/01 Doing a little better. [...] 1429 ? ? al & mag hydroxide kweaonlmefc-kayotjjjtdjdbjh-evdtshkty-nystatin (MAGIC MOUTHWASH) suspension 1-1-1-1, 20 mL, swish [...] Silviano Huddleston NP, 81 mg at 06/01/21 0901 ??? atorvastatin (LIPITOR) tablet 80 mg, 80 mg, oral, Nightly, Silviano Huddleston NP, 80 mg at 05/31/21 2149 ??? carvediloL (COREG) tablet 3.125 mg, 3.125 mg, oral, BID with meals (bkfst, dinner), Silviano Huddleston NP, 3.125 mg at 06/01/21 09 ??? cefepime (MAXIPIME) 2,000 mg in sodium [...] Nightly, Silviano Huddleston NP, 50 mg at 05/31/212148 ??? senna-docusate (PERICOLACE) 8.6-50 mg per tablet 2 tablet, 2 tablet, oral, Q12H, Silviano Huddleston NP, 2 tablet at 06/01/21 0901 ??? sodium bicarbonate tablet 1,300 mg, 1,300 mg, oral, BID, Silviano Huddleston NP, 1,300 mg at 06/01/21 0901 ??? sodium chloride 0.9% flush 0.5-20 mL, 0.5-20 mL, intra-catheter, Q8H LEAH, Silviano Huddleston NP, 10 mL at 06/01/21 0526 ??? vancomycin (VANCOCIN) 1,750 mg in sodium chloride 0.9% 500 mL IVPB, 1,750 mg, intravenous, Q12H, Silviano Huddleston NP, Last Rate: 258.8 mL/hr at 06/01/21 0645, [...] Aortic atherosclerosis. No failure. The right IJ Altha-Radha catheter has been retracted with its tip [...] with left pleural fluid decreasing. No pneumothorax. Altha-Radha catheter remainsin place Impression: Decreasing failure, atelectasis [...] with left pleural fluid decreasing. No pneumothorax. Altha-Radha catheter remains in place Impression: Decreasing failure, [...] atelectasis with left pleural fluid. No pneumothorax. Altha-Radha catheter remains in place Impression: Decreasing failure. No pneumothorax. Electronically signed by: Deacon Cummings M.D. XR Chest 1 View - Portable - in AM Result Date: 05/07/2021 Narrative: EXAMINATION: XR CHEST 1 VIEW DATE: 05/07/2021 3:55 AM HISTORY: 60-year-old man follow-upcardiac surgery FINDINGS:Compared with study of the previous day, postsurgical changes in the heartand mediastinum with cardiomegaly are stable. Altha-Radha catheter remains in place. Left thoracostomy tube [...] Interval placement of endotracheal tube, nasogastric tube, Altha-Radha catheter, left thoracostomy tube and mediastinal drain [...] Echo (TTE) Limited Result Date: 05/07/2021 Narrative: [place] [address] Limited Echocardiogram Report Patient Name: DEEPAK ALVARADO : 1960 StudyDate: 05/07/2021 12:16:52 PM Gender: M Tech: Location: [place] [address] Ref.Provider: RHINA GRANADOS Height(Cm): 175 BSA: 2.1 [...] tamponade. Electronically Signed By: Gianni Francois MD, [facility] :54:09 MANAGER ED Transthoracic Echo Complete W Doppler/CF Result Date: 05/02/2021 Narrative: [place] [address] Echocardiogram Report Patient Name: DEEPAK ALVARADO W : 1960 Study Date: 05/02/2021 8:50:02 AM Gender: M Tech: Location: [place] [address] Ref Provider: NALINI CLAYTONHeight(Cm): 175 BSA: 2.11 [...] Brito DO, FACJustyna, [place]MA, FAISAL 2021-05-02 14:07:25 MANAGER ED CC: CC: CC: ASSESSMENT/PLAN Hyponatremia from SIADH [...] with decompensation Continue diuresis, diuretics stopped by cobbler mckay. RHC not done. Agree with Chandu. ?? [...] -monitor ?? I can be reached at [phone] with any concerns. Thank you Rhina Granados MD for the consult. Yves Weinberg MD [facility] [phone] GER ED * Roya Marquez, WELFARE OFFICER - 06/01/2021 11:26 AM CST Physical Therapy [...] established deficits and goals. DISCHARGE LOCATION RECOMMENDATIONS: [facility] If this is the last note, please consider this the discharge summary. GER ED * Lc Simons MD - 06/01/2021 11:05 [...] 1429 ? ? al & mag hydroxide ncwhasxggob-woxqlpcpixqjcvc-owmgdbsie-nystatin (MAGIC MOUTHWASH) suspension 1-1-1-1 20 mL swish [...] oral QID PRN 200 mg at 05/25/21 5633 ??? ondansetron (ZOFRAN) injection 4 mg 4 [...] 2147 05/31/21 0804 05/31/21 0539 05/30/21 0754 05/30/215 05/29/21 0801 05/29/21 0528 SODIUM mmol/L -- [...] Estimated Creatinine Clearance: 172.9 mL/min (A) (by Justyna-G formula based on SCr of 0.46 mg/dL (L)). Patient Active Problem List Diagnosis Date Noted ??? ST elevation myocardial infarction (STEMI) ([facility]) 05/01/2021 Assessment/Plan: 1. Acute anterior STEMI: [...] evacuation by urology on 05/14. TURBT at [place]. Osorio catheter in place. p 9. V.fib 05/03: brief. Received amiodarone, dobutamine gtt. 10. DM2: continue SSI 11. Acute blood loss anemia: received blood transfusion 12. Tobacco smoking Lc Simons MD [facility] Pager #: [phone] This note is dictated and transcribed by M*Modal Fluency Direct direct software. Facilities Specialist variances may occur. Despite proof reading, typographical errors may occur. GER ED * Angelo Vance MD - 06/01/2021 10:50 AM CST Infectious Disease Deepak Alvarado Admit Date: 05/01/2021 LOS: 31 Days Subjective No new issues ROS Denies n/v/d/f/chills/sob/cp. States feeling better Anti-infectives (From admission, onward) Start Dose/Rate Route Frequency Ordered Stop 05/30/21 8676 cefepime (MAXIPIME) 2,000 mg in sodium chloride 0.9% 100 mL IVPB 2,000 mg 200 mL/hr over 30 Minutes intravenous Every 12 hours 12/11/21 1008 05/30/21 0600 vancomycin (VANCOCIN) 1,750 mg in sodium chloride 0.9% 500 mL IVPB 1,750 mg 258.8 mL/hr over 120 Minutes intravenous Every 12 hours 05/29/21 1919 06/04/21 0559 05/17/216 al & mag hydroxide mpqcdabatdn-lreatcdwqflhnnk-kjoxegbfr-nystatin (MAGIC MOUTHWASH) suspension 1-1-1-1 20 mL swish [...] ??F) Recent Labs Lab Units 05/31/21 0539 05/30/2140405/29/21 0528 WBC K/cumm 18.4* 14.4* 16.1* HEMOGLOBIN [...] acetaminophen ? ? al & mag hydroxide anschyrhhsj-pnljivhbqmrxiyx-ukbnithef-nystatin ??? albuterol ??? dextrose OR dextrose ??? [...] 5. Continue supportive care Angelo Vance MD [place] Infectious [facility] Call [phone] 06/01/2021 10:50 AM GER ED * Xiomy Hidalgo, RD - 06/01/2021 10:44 AM CST Nutrition Assessment Reason for Assessment: Follow Up Encounter Date: 06/01/21 10:44 AM Nutrition Assessment and Plan: Patient is a 60 y.o. male. Admit Dx: STEMI. Admitted on 05/01/2021, current LOS is 31 days. Pt did not answer phone call during time of assessment, unable to obtain further subjective information at this time. Pt on CCHO, mech soft diet with varied intakes (average 81%,adequate). Will continue to send ONS to help meet increased nutritional needs d/t COVID+. Per speech pathologist assistant, last BM documented (05/28). Pt currently receiving [...] Weight Used for Estimated Kcals: Current [place] [facility] Total Energy Needs: 2000.25 kcal using Activity Factor: 1.25 ?? [facility] Total Energy Needs + Fever Factor: 2000.25 ?? Total Protein Estimated Needs (gm): 103.35 [...] medication as directed by your doctor. Call [phone] to speak with a dietitian about any diet related concerns. Recommend to follow up with outpatient nutrition counseling, ask your doctor for a referral and call [phone] to make an appointment. Nutrition Follow-Up : 06/08/[address],LD GER ED * Shruthi Hu COTA - 06/01/2021 10:38 AM CST Occupational Therapy NOTE / SESSION TYPE: DAILY PROGRESS / TREATMENT Patient's Name: Deepak Alvarado Age / Sex: 60 y.o. / male Room: [place] [id number] : 1960 Date of service: 06/01/21 TIME [...] session: Yes Completed patient handoff and notified PAUNCH TRIMMER / RN, name: SUZIE, of patient's location [...] DIFFICULTY Mobility / Transfers: Bed Mobility: MIN [id number] ASSIST FROM SUPINE WITH HOB ELEVATED > SEATED AT EOB WITH UTILIZATION OF LOG-ROLL TECHNIQUE TO MAINTAIN STERNAL PRECAUTIONS Transfer(s): CGA FROM SEATED AT EOB > STANDING AT EOB WITH [id number] ASSIST PER THERAPIST CGA/ [id number] ASSIST FROM STANDING AT EOB > SEATED [...] Chiara Fonseca OT at 06/01/2021 5:18 PM MANAGER ED GER ED GER ED GER ED * Shima Paulson NP - 06/01/2021 9:20 [...] No CV recs, pending SNF placement ROLAND [facility] 06/01/2021 9:20 AM Cosigned by Blue Cooley Jr., MD at 06/01/2021 9:35 AM MANAGER ED GER ED GER ED * Mae Covington, [facility] - 06/01/2021 12:10 AM CST Pharmacokinetic Consult [...] Day 6 of therapy Mae Covington RPh GER ED * Yves Weinberg MD - 05/31/2021 2:12 PM CST Nephrology Progress Note Reading Nephrology SUBJECTIVE 05/31 Na 132, Cr normal. [...] 1429 ? ? al & mag hydroxide vjwawhegntc-wrwulvgdwzbkmri-yfifwglzu-nystatin (MAGIC MOUTHWASH) suspension 1-1-1-1, 20 mL, swish [...] Nightly, Rhina Granados MD, 80 mg at 05/30/21 2113 ??? carvediloL (COREG) tablet 3.125 mg, 3.125 [...] Daily, Alejandro Gonzalez NP, 75 mg at 05/31/218 ??? dapagliflozin (FARXIGA) tablet 10 mg, 10 [...] Nightly, Silviano Huddleston NP, 1 Units at 05/30/21 211 ??? midodrine (PROAMATINE) tablet 15 mg, 15 [...] Simons MD, Last Rate: 258.8 mL/hr at 05/31/21756, 1,750 mg at 05/31/21756 Lab/Radiology/Diagnostic Review: Recent Results (from the past [...] Aortic atherosclerosis. No failure. The right IJ Altha-Radha catheter has been retracted with its tip [...] with left pleural fluid decreasing. No pneumothorax. Altha-Radha catheter remainsin place Impression: Decreasing failure, atelectasis [...] with left pleural fluid decreasing. No pneumothorax. Altha-Radha catheter remains in place Impression: Decreasing failure, [...] atelectasis with left pleural fluid. No pneumothorax. Altha-Radha catheter remains in place Impression: Decreasing failure. No pneumothorax. Electronically signed by: Deacon Cummings M.D. XR Chest 1 View - Portable - in AM Result Date: 05/07/2021 Narrative: EXAMINATION: XR CHEST 1 VIEW DATE: 05/07/2021 3:55 AM HISTORY: 60-year-old man follow-upcardiac surgery FINDINGS:Compared with study of the previous day, postsurgical changes in the heartand mediastinum with cardiomegaly are stable. Altha-Radha catheter remains in place. Left thoracostomy tube [...] Interval placement of endotracheal tube, nasogastric tube, Altha-Radha catheter, left thoracostomy tube and mediastinal drain [...] Echo (TTE) Limited Result Date: 05/07/2021 Narrative: [place] [address] Limited Echocardiogram Report Patient Name: DEEPAK ALVARADO : 1960 StudyDate: 05/07/2021 12:16:52 PM Gender: M Tech: Location: [place] [address] Ref.Provider: RHINA GRANADOS Height(Cm): 175 BSA: 2.1 [...] tamponade. Electronically Signed By: Gianni Francois MD, [facility] :54:09 MANAGER ED Transthoracic Echo Complete W Doppler/CF Result Date: 05/02/2021 Narrative: [place] [address] Echocardiogram Report Patient Name: DEEPAK ALVARADO W : 1960 Study Date: 05/02/2021 8:50:02 AM Gender: M Tech: Location: [place] [address] Ref Provider: NALINI CLAYTONHeight(Cm): 175 BSA: 2.11 [...] Brito DO, FACJustyna, [place], FAISAL 2021-05-02 14:07:25 MANAGER ED CC: CC: CC: ASSESSMENT/PLAN Hyponatremia from SIADH [...] with decompensation Continue diuresis, diuretics stopped by cobbler mckay. RHC not done. Agree with Chandu. ?? [...] -monitor ?? I can be reached at [phone] with any concerns. Thank you Rhina Granados MD for the consult. Yves Weinberg MD [employer] [phone] GER ED * Ochoa Encinas MD - 05/31/2021 1:12 PM CST Cardiology Inpatient Progress Note [facility] SUBJECTIVE: Pt had no [...] HLD -stable on Statin Ochoa Encinas MD, [facility] 05/31/2021 1:12 PM GER ED * Jose Garner MD - 05/31/2021 8:57 AM CST Infectious Disease Deepak Alvarado Admit Date: 05/01/2021 LOS: 30 Days Subjective [...] 06/04/21 0559 05/17/212115 al & mag hydroxide ixvwksxxceq-xloosbulhremkey-ulyvciquj-nystatin (MAGIC MOUTHWASH) suspension 1-1-1-1 20 mL swish & spit Every 4 hours PRN 05/17/212116 Data Vitals: 05/31/21 0538 05/31/21 0543 05/31/21 0553 05/31/21 0608 BP: 95/51 91/52 90/52 Pulse: 95 86 91 89 Resp: 20 17 Temp: TempSrc: SpO2: Weight: Height: Temp (24hrs), [...] acetaminophen ? ? al & mag hydroxide hozlnjwtmor-ybyyzngaxtobzqo-zuicuvhjn-nystatin ??? albuterol ??? dextrose OR dextrose ??? [...] 5. Continue supportive care Gorge Posadas NP-C [place] [facility] Call [phone] 05/31/2021 8:58 AM GER ED GER ED * Alejandro Pratt MD - 05/31/2021 6:42 [...] hematuria as well. Workup revealed an acute TX. Cath showed multi-vessel CAD. Had balloon pump placed. CABG x 4 done on 05/04/21. He was continued on mechanical ventilation and self extubated this AM (11/16/21). He is on multiple pressors. Sedated with [...] acetaminophen ? ? al & mag hydroxide zgtivyykclg-waxiyaorupcqima-nejgguqtf-nystatin ??? albuterol ??? dextrose OR dextrose ??? dextrose OR [DISCONTINUED] dextrose ??? glucagon ??? guaiFENesin ??? ondansetron ROS Above review of system reviewed on 05/31/2021 Vitals: Vitals: 05/31/21 0538 05/31/21 0543 05/31/21 0553 05/31/21 0608 BP: 95/51 91/52 90/52 Pulse: 95 86 91 89 Resp: 17 Temp: TempSrc: SpO2: Weight: Height: Temp (24hrs), [...] Assessment and Plan: Acute respiratory failure Acute TX w CAD s/p CABG x 4 on [...] of ICU from pulmonary perspective Chart reviewed GER ED * Robbie Celeste MD - 05/31/2021 6:23 [...] 1429 ? ? al & mag hydroxide ntuzslsrhwc-nhcodehsdjuljrq-ztoqsunxa-nystatin (MAGIC MOUTHWASH) suspension 1-1-1-1 20 mL swish [...] oral QID PRN 200 mg at 05/25/21 7233 ??? ondansetron (ZOFRAN) injection 4 mg 4 mg intravenous Q6H PRN Lab/Radiology/Diagnostic Review: Recent Labs Lab Units 05/30/21 0405 05/29/21 0528 05/28/21 0247 WBC K/cumm 14.4* 16.1* 12.1* HEMOGLOBIN g/dL 10.0* 10.1* 11.2* HEMATOCRIT % 29.8* 31.3* 34.3* MCV fL 92.3 91.8 91.7 PLATELETS K/cumm 467* 508* 468* Recent Labs Lab Units 05/30/21 2009 05/30/21 1717 05/30/21 1208 05/30/21 0754 05/30/21 0405 [...] ST elevation myocardial infarction (STEMI) ([facility]) 05/01/2021 Assessment/Plan: 1. Acute anterior STEMKI: CAD, post LHC, post CABG 05/04, IABP p;aced, removed 05/06. CTS consulted. Continue ASA, statin, plavix, beta octavia 2. Acute hypoxemic respiratory failure: / COVID-. Transferred to ICU 05/17 for worsening [...] evacuation by urology on 05/14. TURBT at [place]. Osorio catheter in place. p 9. V.fib 05/03: brief. Received amiodarone, dobutamine gtt. 10. DM2: continue SSI 11. Acute blood loss anemia: received blood transfusion 12. Tobacco smoking 13. Code status: 14. Stable for transfer to telemetry Robbie Celeste MD [facility] Pager #: [phone] This note is dictated and transcribed by [employer] Direct direct software. Facilities Specialist variances may occur. Despite proof reading, typographical [...] on 04/29. He was taken to the wheelabrator operator on 04/30 where they found in-stent thrombosis [...] the ICU. Hospital Course 04/29 Cystoscopy at [facility] 04/30 STEMI, wheelabrator operator -> instent thrombosis, angioplasty, IABP, transfer to [facility] 05/04/21: Increased blood clot from osorio and [...] acetaminophen ? ? al & mag hydroxide bthkwkostwx-deptnxzovkcgniu-rmtymwcyt-nystatin ??? albuterol ??? dextrose OR dextrose ??? [...] - 05/30/2165805/30/21 07 - 05/31/21 0659 Shift 0249-0400 24 Hour Total 0098-1626 6367-7804 24 Hour Total INTAKE P.O. 130 970 [...] - Urology following - Flomax Heme: #ABLA 07/22 surgery H&H 04/17.8 plt 467 - No [...] PICC (05/18) Goals of care: Full code [facility] PM Assessment and plan has been reviewed with attending, Dr. Dalton Mei, ACNP [phone], [place] 1 Critical Care Medicine [facility] Cosigned by Austin Hoffman MD at 06/09/2021 1:01 PM MANAGER ED GER ED GER ED * Cristina Serrano NP - 05/30/2021 2:48 PM CST Daily Progress SUBJECTIVE: Mr. Avlarado is resting in bed, O2 now at 4 L OBJECTIVE: Vitals: 05/30/21 1100 05/30/21 1200 05/30/21 1300 05/30/21 1400 BP: 110/68 106/68 105/72 104/63 Pulse: 79 80 91 82 Resp: 22 19 Temp: TempSrc: SpO2: Weight: Height: [...] EF??37%, CABGx4 05/04/2021 - SR 80s on kubo financiero 2233 -CTS following ?? COVID 19 - [...] ?? HLD - on Statin ?? Cristina Serrano, COLLEGE TUTOR, MSN, ANP-[facility] 05/30/2021 2:48 PM GER ED * Lc Simons MD - 05/30/2021 12:00 [...] 1429 ? ? al & mag hydroxide txiwkmvuxtb-kcwcnulyovaqerk-baswvuxop-nystatin (MAGIC MOUTHWASH) suspension 1-1-1-1 20 mL swish [...] Nightly Rhina Granados MD 80 mg at 05/29/21 2133 ??? carvediloL (COREG) tablet 3.125 mg 3.125 mg oral BID with meals (bkfst, dinner) Nalini Clayton MD 3.125 mg at 05/29/21 1732 ??? cefepime (MAXIPIME) 2,000 mg in sodium chloride 0.9% 100 mL IVPB 2,000 mg intravenous Q12H Angelo Vance MD ??? clopidogreL (PLAVIX) tablet 75 mg 75 mg oral Daily Alejandro Gonzalez NP 75 mg at 948 ??? dapagliflozin (FARXIGA) tablet 10 mg 10 [...] subcutaneous Daily-2100 Rhina Granados MD 40 mg at107/30/203 ??? glucagon injection 1 mg 1 mg intramuscular Q30 Min PRN Silviano Huddleston NP ??? guaiFENesin (ROBITUSSIN) 20 mg/mL oral liquid 200 mg 200 mg oral QID PRN Caleb Toth PA 200 mg at 05/25/21 2353 ??? insulin lispro (HumaLOG, ADMELOG) 100 unit/mL injection 0-10 Units 0-10 Units subcutaneous TID with meals Silviano Huddleston NP 4 Units at 05/29/21 1733 ??? insulin lispro (HumaLOG, ADMELOG) 100 unit/mL injection 0-5 Units 0-5 Units subcutaneous Nightly Silviano Huddleston NP 2 Units at 05/29/219 ??? midodrine (PROAMATINE) tablet 15 mg 15 mg oral TID Silviano Huddleston NP 15 mg at 05/30/21 0947 ??? ondansetron (ZOFRAN) injection 4 mg 4 mg intravenous Q6H PRN Rhina Granados MD ??? pantoprazole DR (PROTONIX) extended release tablet 40 mg 40 mg oral Daily Rhina Granados MD40 mg at 05/30/21 0947 ??? polyethylene glycol (MIRALAX) packet 17 g 17 g oral Q12H Elena Kelly NP 17 g at 05/30/2147 ??? QUEtiapine (SEROquel) tablet 50 mg 50 [...] Q8H Rhina Flores MD 10 mL at 05/30/21 0519 ??? tamsulosin (FLOMAX) extended release capsule 0.4 mg 0.4 mg oral Daily with dinner Elena Kelly, EFREN 0.4 mg at 05/29/21 1732 ??? vancomycin (VANCOCIN) 1,750 mg in sodium chloride 0.9% 500 mL IVPB 1,750 mg intravenous Q12H Lc Simons MD 258.8 mL/hr at 05/30/21517 1,750 mg at 05/30/2118 ??? acetaminophen ? ? al & mag hydroxide pzzwsgigcyb-xvcjmlpbvohsrep-vlausxwuf-nystatin ??? albuterol ??? dextrose OR dextrose ??? [...] and transurethral resection of bladder tumor at [facility] -s/p 20??Faroese three way catheter -holding Plavix -cysto 05/14 [...] MD [facility] Hospitalist 05/30/2021 12:00 PM GER ED * Angelo Vance MD - 05/30/2021 10:06 [...] ??C (98.6 ??F) Recent Labs Lab Units 05/30/21 0405 05/29/21 0528 05/28/21 0247 WBC K/cumm 14.4* 16.1* 12.1* HEMOGLOBIN g/dL 10.0* 10.1* 11.2* HEMATOCRIT % 29.8* 31.3* 34.3* PLATELETS K/cumm 467* 508* 468* Recent Labs Lab Units 05/30/21 0405 05/29/21 0505/29/21 0528 05/28/21 0247 05/28/21 0247 BUN SERUM mg/dL 20 -- 18 -- [...] acetaminophen ? ? al & mag hydroxide bewckilchgn-jwhuznoqupjlxsq-iwcoksvus-nystatin ??? albuterol ??? dextrose OR dextrose ??? [...] Continue supportive care Angelo Vance MD 05/30/2021 GER ED * Tereza Mccullough COLLEGE TUTOR - 05/30/2021 8:40 AM CST Nephrology Progress Note Reading Nephrology SUBJECTIVE 05/30 WBC trending down.Na 131,creatinine stable.Co2 18- up from 17.Other lytes stable.BP stable.I discussed the pt. with DIRECTOR PRINT and his ICU nurse.Pt. has significant pneumonia.O2 [...] 1429 ? ? al & mag hydroxide rbdbzcnvhls-qeycaelslngmlml-jqyxklcuf-nystatin (MAGIC MOUTHWASH) suspension 1-1-1-1, 20 mL, swish [...] tablet 81 mg, 81 mg, oral, Daily, Arvonia, Varsha Shaylee, COLLEGE TUTOR, 81 mg at 05/29/21821 ??? atorvastatin (LIPITOR) [...] Vance MD, Last Rate: 200 mL/hr at 05/30/21517, 2,000 mg at 05/30/21517 ??? clopidogreL (PLAVIX) tablet 75 mg, 75 mg, oral, Daily, Alejandro Gonzalez NP, 75 mg at 05/29/21820 ??? dapagliflozin (FARXIGA) tablet 10 mg, 10 [...] Daily-2100, Rhina Granados MD, 40 mg at 05/29/212132 ??? glucagon injection 1 mg, 1 mg, [...] Nightly, Silviano Huddleston NP, 2 Units at 05/29/212148 ??? lidocaine (LIDODERM) 5 % patch 1 patch, 1 patch, transdermal, Daily, Karolina Muñoz NP, Medication Removed at 05/27/212220 ??? lisinopriL (PRINIVIL,ZESTRIL) tablet 5 mg, 5 mg, oral, Daily, Nalini Clayton MD, 5 mg at 05/29/21 0946 ??? magnesium sulfate 2 g/50 mL in water (premix) 2 g, 2 g, intravenous, Once, Erika Mayer NP ??? midodrine (PROAMATINE) tablet 15 mg, 15 mg, oral, TID, Silviano Huddleston NP, 15 mg at 05/29/212319 ??? ondansetron (ZOFRAN) injection 4 mg, 4 [...] tablet 2 tablet, 2 tablet, oral, Q12H, Elena Kelly NP, 2 tablet at 05/29/212132 ??? sodium bicarbonate tablet 1,300 mg, 1,300 mg, oral, BID, Yves Weinberg MD, 1,300 mg at 05/29/212132 ??? sodium chloride 0.9% flush 0.5-20 mL, 0.5-20 mL, intra-catheter, Q8H [facility], Rhina Granados MD, 10 mL at 05/30/21518 [...] Aortic atherosclerosis. No failure. The right IJ Altha-Radha catheter has been retracted with its tip [...] with left pleural fluid decreasing. No pneumothorax. Altha-Radha catheter remainsin place Impression: Decreasing failure, atelectasis [...] with left pleural fluid decreasing. No pneumothorax. Altha-Radha catheter remains in place Impression: Decreasing failure, [...] atelectasis with left pleural fluid. No pneumothorax. Altha-Radha catheter remains in place Impression: Decreasing failure. No pneumothorax. Electronically signed by: Deacon Cummings M.D. XR Chest 1 View - Portable - in AM Result Date: 05/07/2021 Narrative: EXAMINATION: XR CHEST 1 VIEW DATE: 05/07/2021 3:55 AM HISTORY: 60-year-old man follow-upcardiac surgery FINDINGS:Compared with study of the previous day, postsurgical changes in the heartand mediastinum with cardiomegaly are stable. Altha-Radha catheter remains in place. Left thoracostomy tube [...] Interval placement of endotracheal tube, nasogastric tube, Altha-Radha catheter, left thoracostomy tube and mediastinal drain [...] Echo (TTE) Limited Result Date: 05/07/2021 Narrative: [place] [address] Limited Echocardiogram Report Patient Name: DEEPAK ALVARADO : 1960 StudyDate: 05/07/2021 12:16:52 PM Gender: M Tech: SR Location: [id number] Ref.Provider: RHINA GRANADOS Height(Cm): 175 BSA: 2.1 [...] tamponade. Electronically Signed By: Gianni Francois MD, [facility] :54:09 MANAGER ED Transthoracic Echo Complete W Doppler/CF Result Date: 05/02/2021 Narrative: [place] [address] Echocardiogram Report Patient Name: DEEPAK ALVARADO W : 1960 Study Date: 05/02/2021 8:50:02 AM Gender: M Tech: SR Location: [id number] Ref Provider: NALINI CLAYTONHeight(Cm): 175 BSA: 2.11 [...] valve. Electronically Signed By: Rylee Brito DO, [facility], [place], [facility] 2021-05-02 14:07:25 MANAGER ED CC: CC: CC: ASSESSMENT/PLAN Hyponatremia from SIADH [...] with decompensation Continue diuresis, diuretics stopped by cobbler mckay. RHC not done. Agree with Corlanor. ?? [...] today ?? I can be reached at [phone] with any concerns. Thank you Lc Simons MD for the consult. Tereza Mccullough NP [employer] [phone] Cosigned by Ashley Fox MD at 06/24/2021 3:21 PM MANAGER ED GER ED GER ED * Erika Mayer NP - 05/30/2021 7:00 [...] on 04/29. He was taken to the wheelabrator operator on 04/30 where they found in-stent thrombosis [...] the ICU. Hospital Course 04/29 Cystoscopy at [facility] 04/30 STEMI, wheelabrator operator -> instent thrombosis, angioplasty, IABP, transfer to [facility] 05/04/21: Increased blood clot from osorio and [...] acetaminophen ? ? al & mag hydroxide zqjrghqxjwu-vwrqeepoznudzho-pvgqrqedj-nystatin ??? albuterol ??? dextrose OR dextrose ??? [...] Date 05/29/21 07 - 05/30/21 0659 05/30/21 0700 - 05/31/21 0659 Shift 6296-2913 0249-5681 24 Hour Total 2754-0270 5385-3080 24 Hour Total INTAKE P.O. 840 130 970 Shift Total(mL/kg) 840(11) 130(1.7) 970(12.7) OUTPUT Urine(mL/kg/hr) 1525(1.7) 1025(1.1) 2550(1.4) Shift Total(mL/kg) 1525(20) 1025(13.4) 2550(33.4) [facility] -511 -286 -1584 Weight (kg) 76.3 76.3 76.3 76.3 76.3 [...] needed -AM BMP and electrolytes check #Hematuria 2/ #Bladder tumor - (05/14) Cystoscopy for clot evacuation and cessation of bleeding sites - Mild hematuria improving - Urology following - Flomax Heme: #ABLA 2/2 surgery - No active signs of bleeding - Transfuse for hgb < 8 - CBC as indicated -DVT PPX: SCD's/Lovenox #high risk for coagulopathy 2/ covid 19 pneumonia -d-dimer rising -LEDs pending -05/25 CTPE neg ID: #leukocytosis 2/ COVID 19 pneumonia #HCAP, H. Flu, Moraxella, MRSA, Enterovirus and Rhinovirus - s/p Remdesivir and Dexamethasone - Vanc/Cefe for 10 day course (day 4) - ID Following - CBC in am - CXR in am for evaluation of lung escamilla - Trend WBC and fever curve ICU standards of care: Restraints: NA Physical therapy/Activity: PT/OT- progressive mobility Access: RUE PICC (05/18) Other: osorio Goals of care: Full code Community AM Assessment and plan has been reviewed with attending, Dr. Rao Mayer NP [phone], [place] 1 Critical Care Medicine [facility] Cosigned by Trinh Yeh MD at 06/01/2021 8:34 AM MANAGER ED GER ED GER ED * Alejandro Pratt MD - 05/30/2021 6:25 [...] hematuria as well. Workup revealed an acute TX. Cath showed multi-vessel CAD. Had balloon pump [...] acetaminophen ? ? al & mag hydroxide suisvdrqedv-gohnlysbkyppvcf-qrhuniomr-nystatin ??? albuterol ??? dextrose OR dextrose ??? [...] Assessment and Plan: Acute respiratory failure Acute TX w CAD s/p CABG x 4 on [...] albuterol Increase activity as tolerated Chart reviewed GER ED * Yves Weinberg MD - 05/29/2021 9:03 PM CST Nephrology Progress Note Reading Nephrology SUBJECTIVE 05/29/21 Remains frail. BP soft, [...] 113/67 BP Location: Right arm Patient Position: [facility] 30 degrees Pulse: 91 79 96 Resp: [...] 1429 ? ? al & mag hydroxide dlxbwzwknpr-idmriixntuvzqyj-mzrieituo-nystatin (MAGIC MOUTHWASH) suspension 1-1-1-1, 20 mL, swish [...] Nightly, Rhina Granados MD, 80 mg at 05/28/212106 ??? carvediloL (COREG) tablet 3.125 mg, 3.125 [...] Daily-2100, Rhina Granados MD, 40 mg at 05/28/217 ??? glucagon injection 1 mg, 1 mg, [...] patch 1 patch, 1 patch, transdermal, Daily, Karolina Muñoz NP, Medication Removed at 05/27/21 2221 [...] flush 0.5-20 mL, 0.5-20 mL, intra-catheter, Q8H [facility], Rhina Granados MD, 20 mL at 05/29/21 [...] Aortic atherosclerosis. No failure. The right IJ Altha-Radha catheter has been retracted with its tip [...] with left pleural fluid decreasing. No pneumothorax. Altha-Radha catheter remainsin place Impression: Decreasing failure, atelectasis [...] with left pleural fluid decreasing. No pneumothorax. Altha-Radha catheter remains in place Impression: Decreasing failure, [...] atelectasis with left pleural fluid. No pneumothorax. Altha-Radha catheter remains in place Impression: Decreasing failure. No pneumothorax. Electronically signed by: Deacon Cummings M.D. XR Chest 1 View - Portable - in AM Result Date: 05/07/2021 Narrative: EXAMINATION: XR CHEST 1 VIEW DATE: 05/07/2021 3:55 AM HISTORY: 60-year-old man follow-upcardiac surgery FINDINGS:Compared with study of the previous day, postsurgical changes in the heartand mediastinum with cardiomegaly are stable. Altha-Radha catheter remains in place. Left thoracostomy tube [...] Interval placement of endotracheal tube, nasogastric tube, Altha-Radha catheter, left thoracostomy tube and mediastinal drain [...] Echo (TTE) Limited Result Date: 05/07/2021 Narrative: [place] [address] Limited Echocardiogram Report Patient Name: DEEPAK ALVARADO : 1960 StudyDate: 05/07/2021 12:16:52 PM Gender: M Tech: SR Location: [id number] Ref.Provider: RHINA GRANADOS Height(Cm): 175 BSA: 2.1 [...] tamponade. Electronically Signed By: Gianni Francois MD, [facility] :54:09 MANAGER ED Transthoracic Echo Complete W Doppler/CF Result Date: 05/02/2021 Narrative: [address] [address] Echocardiogram Report Patient Name: DEEPAK ALVARADO W : 1960 Study Date: 05/02/2021 8:50:02 AM Gender: M Tech: SR Location: [id number] Ref Provider: NALINI CLAYTONHeight(Cm): 175 BSA: 2.11 [...] Brito DO, FACJustyna, [place], FAISAL 2021-05-02 14:07:25 MANAGER ED CC: CC: CC: ASSESSMENT/PLAN Hyponatremia from SIADH [...] with decompensation Continue diuresis, diuretics stopped by cobbler mckay. RHC not done. Agree with Chandu. ?? [...] -monitor ?? I can be reached at [phone] with any concerns. Thank you Lc Simons MD for the consult. Yves Weinberg MD [employer] [phone] GER ED * Marek Mei NP - 05/29/2021 8:51 [...] on 04/29. He was taken to the wheelabrator operator on 04/30 where they found in-stent thrombosis [...] the ICU. Hospital Course 04/29 Cystoscopy at [facility] 04/30 STEMI, wheelabrator operator -> instent thrombosis, angioplasty, IABP, transfer to [facility] 05/04/21: Increased blood clot from osorio and [...] acetaminophen ? ? al & mag hydroxide dlxvvrqndyo-fzpnpfbenyeblme-bhjuuiqdk-nystatin ??? albuterol ??? dextrose OR dextrose ??? [...] 0659 05/29/21 0700 - 05/30/21 0659 Shift 3614-1057 24 Hour Total 5412-8196 5119-3789 24 Hour Total INTAKE P.O. 1440 840 [...] needed -AM BMP and electrolytes check #Hematuria / #Bladder tumor - (05/14) Cystoscopy for clot [...] been reviewed with attending, Dr. Dalton Mei, [facility] [phone], [place] 1 Critical Care Medicine [facility] Cosigned by Austin Hoffman MD at 06/09/2021 1:01 PM MANAGER ED GER ED GER ED * Se Godoy, [facility] - 05/29/2021 7:21 PM CST Pharmacokinetic Consult [...] Day 4 of therapy Se Godoy RPh GER ED * Lc Simons MD - 05/29/2021 10:49 [...] 1545 ? ? al & mag hydroxide vhdenrkbyer-njaomksxvfpvvop-oymlamtiy-nystatin (MAGIC MOUTHWASH) suspension 1-1-1-1 20 mL swish & spit Q4H PRN Elena Kelly NP ??? albuterol 2.5 mg /3 mL (0.083 %) nebulizer solution 2.5 mg 2.5 mg nebulization Q4H PRN (RT) Ralf Tomlinson MD 2.5 mg at 11/28/21 0224 ??? albuterol HFA (PROVENTIL HFA,VENTOLIN HFA,PROAIR HFA) 90 mcg/actuation inhaler 8 puff 8 puff inhalation Q4H While awake (RT) Ralf Tomlinson MD 8 puff at 05/29/21 09 ??? aspirin enteric coated tablet 81 mg [...] 100 mL IVPB 2,000 mg intravenous Q8H LEAH Angelo Vance MD ??? clopidogreL (PLAVIX) tablet 75 mg 75 mg oral Daily Alejandro Gonzalez NP 75 mg at 05/29/21820 ??? dapagliflozin (FARXIGA) tablet 10 mg 10 [...] syringe 40 mg 40 mg subcutaneous Daily-2099 Rhina Granados MD 40 mg at107/29/202106 ??? [...] Silviano Huddleston NP 4 Units at 05/28/21 175 ??? insulin lispro (HumaLOG, ADMELOG) 100 unit/mL injection 0-5 Units 0-5 Units subcutaneous Nightly Silviano Huddleston, EFREN 2 Units at 05/28/212109 ??? lidocaine (LIDODERM) 5 % patch 1 patch 1 patch transdermal Daily Karolina Muñoz NPMedication Removed at 05/27/212220 ??? lisinopriL (PRINIVIL,ZESTRIL) tablet 5 mg 5 mg oral Daily Nalini Clayton MD 5 mg at 05/29/21945 ??? midodrine (PROAMATINE) tablet 15 mg 15 mg oral TID Silviano Huddleston NP 15 mg at 05/29/21821 ??? ondansetron (ZOFRAN) injection 4 mg 4 mg intravenous Q6H PRN Rhina Granados MD ??? pantoprazole DR (PROTONIX) extended release tablet 40 mg 40 mg oral Daily Rhina Granados MD40 mg at 05/29/21816 ??? polyethylene glycol (MIRALAX) packet 17 g 17 g oral Q12H Elena Kelly NP 17 g at 05/29/21945 ??? QUEtiapine (SEROquel) tablet 50 mg 50 mg oral Nightly Silviano Huddleston NP 50 mg at ??? senna-docusate (PERICOLACE) 8.6-50 mg per tablet 2 tablet 2 tablet oral Q12H Elena Kelly NP 2 tablet at 05/29/21945 ??? sodium bicarbonate tablet 1,300 mg 1,300 mg oral BID Yves Weinberg MD 1,300 mg at 05/29/21821 ??? sodium chloride 0.9% flush 0.5-20 mL 0.5-20 mL intra-catheter Q8H LEAH Rhina Granados MD 10 mL at 05/29/2113 ??? tamsulosin (FLOMAX) extended release capsule 0.4 mg 0.4 mg oral Daily with dinner JamieElena wong, COLLEGE TUTOR 0.4 mg at 05/28/21 1751 ??? vancomycin 1500 mg/250 mL in sodium chloride 0.9% (premix) 1,500 mg 1,500 mg intravenous Q12H Wanda Renee, EFREN 1,500 mg at 05/29/21 0516 ??? acetaminophen ? ? al & mag hydroxide hwpjzwsvfqc-dzdmrkbsynhcluo-huzgiuxbf-nystatin ??? albuterol ??? dextrose OR dextrose ??? [...] and transurethral resection of bladder tumor at [facility] -s/p 20??Faroese three way catheter -holding Plavix -cysto 05/14 [...] MD [facility] Hospitalist 05/29/2021 10:49 AM GER ED * Angelo Vance MD - 05/29/2021 9:45 [...] (98.6 ??F) Recent Labs Lab Units 05/29/21 0505/28/21 02405/27/21 0640 WBC K/cumm 16.1* 12.1* 13.5* HEMOGLOBIN g/dL 10.1* 11.2* 9.9* HEMATOCRIT % 31.3* 34.3* 29.8* PLATELETS K/cumm 508* 468* 519* Recent Labs Lab Units 05/29/21 0528 05/28/21 02405/28/21 02405/27/21 0640 05/27/21 0640 BUN SERUM mg/dL 18 [...] acetaminophen ? ? al & mag hydroxide mbbywrnwqrw-kiupewqhnjzshkl-ofikxkgxm-nystatin ??? albuterol ??? dextrose OR dextrose ??? [...] Continue supportive care Angelo Vance MD 05/29/2021 GER ED * Chiara Fonseca, OT - 05/29/2021 9:11 AM CST Occupational Therapy NOTE / SESSION TYPE: Weekly Progress / Interim Patient Name: Deepak Alvarado Date of : 1960 Age / Sex: 60 y.o. / male Room: [place] [address] Admit Date: 05/01/2021 Date of Service: 05/29/21 Time In: 09:11 Time Out: 09:37 Primary Diagnosis: ST elevation myocardial infarction (STEMI) ([facility]) HPI:??Deepak Alvarado??is a 60 y.o.??male??who presents with ??retrosternal chest pain accompanied bysweating and shortness of breath. Patient underwent bladder surgery (cystoscopy, clot evacuation, and transurethral resection of bladder tumor) ??at [facility] 04/30/2021 and was discharged 05/01/2021. Patient transferred to for emergent cardiac catheterization. Patient admitted with acute anterior wall TX, s/p cardiac cath with PTCA of the [...] SUBJECTIVE: Patient Comment: I'M WAITING FOR THE COMPENSATION EXPERT TO COME Pain Assessment: Pre-therapy pain level: [...] session: Yes Completed patient handoff and notified PAUNCH TRIMMER / RN, name: MARCEL, of patient's location [...] EXCEPT 3-/5 SHOULDER FLEXION/ABDUCTION Hand Dominance: Right Front Office Representative Strength (Right) GOOD Front Office Representative Strength (Left): GOOD Right Serial Opposition: Decreased [...] (from Occupational Therapy) Active Problems Problem: OT [facility] Start Date: 05/07/21 Goal Start Date Expected End Date End Date [facility] 3 05/07/21 06/05/21 -- Goal Details: Patient will complete LE dressing with MOD I using compensatory strategies one time (GOAL CONTINUED AT TIME OF WEEKLY INTERIM ON ) Goal Start Date Expected End Date End Date [facility] 5 05/07/21 06/05/21 -- Goal Details: Patient will complete chest mobilization exercises with MINIMAL verbal cues one time to increase tolerance for ADLs GOAL UPDATED AT TIME OF WEEKLY INTERIM ON ) Goal Start Date Expected End Date End Date [facility] 7 05/15/21 06/05/21 -- Goal Details: Patient will complete UE dress with set up x1 (GOAL CONTINUED AT TIME OF WEEKLY INTERIM ON ) Goal Start Date Expected End Date End Date [facility] 8 05/15/21 06/05/21 -- Goal Details: Patient will complete transfers to bed/toilet/chair with SBA one time using least restrictive device (GOAL CONTINUED AT TIME OF WEEKLY INTERIM ON ) Goal Start Date Expected End Date End Date [facility] 4 05/19/21 06/05/21 -- Goal Details: Patient will complete bathing with SBA one time (GOAL CONTINUED AT TIME OF WEEKLY INTERIM ON ) Reviewed By Deepak Bills RN 05/28/21 6994 Deepak Bills RN 05/28/21 4555 Devonte Ward RN 05/17/21 0047 Devonte Ward RN 05/11/21 3458 Devonte Ward RN 05/10/21 0257 If this is the last note, consider this the discharge summary Chiara Fonseca OT 05/29/21 9:42 AM GER ED * Padilla Baker RPh - 05/29/2021 8:35 [...] of 0.38 mg/dL (L)). Padilla Baker, Pharm.D GER ED * Nalini Clayton MD - 05/29/2021 8:23 AM CST [facility] - Cardiology [facility] Progress Note Admit Date: 05/01/2021 5:20 PM @HDAYS@ PCP: Unknown, Notinfile Patient seen and examined Chart , telemtry reviewed Symptoms Patient denies chest pain, dyspnea, palpitations, sweating or syncope.On optiflo Data Vitals: 05/29/21 0600 05/29/21 0610 05/29/21 0630 05/29/21 0700 BP: 101/62 101/73 106/64 BP Location: Patient Position: Pulse: 86 83 96 Resp: Temp: TempSrc: SpO2: 98% 99% Weight: [...] found for: T3FREE No results found for: R5YHHSN Pain Assessment: No/denies pain Meds MEDICATIONS FOR [...] 1545 ? ? al & mag hydroxide risjichvdhy-maadufbcojzevnx-ignehaxrg-nystatin (MAGIC MOUTHWASH) suspension 1-1-1-1 20 mL swish [...] - on Statin ? Nalini Clayton MD GER ED * Alejandro Pratt MD - 05/29/2021 7:13 [...] hematuria as well. Workup revealed an acute TX. Cath showed multi-vessel CAD. Had balloon pump [...] acetaminophen ? ? al & mag hydroxide yadekjurhih-behcjrdajiyhcvx-paicarwtg-nystatin ??? albuterol ??? dextrose OR dextrose ??? dextrose OR [DISCONTINUED] dextrose ??? glucagon ??? guaiFENesin ??? ondansetron ??? polyethylene glycol ROS Above review of system reviewed on 05/29/2021 Vitals: Vitals: 05/29/21 0530 05/29/21 0600 05/29/21 0610 05/29/21 0630 BP: 106/66 101/62 101/73 BP Location: Patient Position: Pulse: 86 86 83 Resp: 20 23 Temp: TempSrc: SpO2: 98% 99% Weight: Height: [...] Lab/Radiology/Diagnostic Review: Labs: Recent Labs Lab Units 05/29/2152705/28/21 0247 05/27/21 0640 WBC K/cumm 16.1* 12.1* 13.5* HEMOGLOBIN g/dL 10.1* 11.2* 9.9* HEMATOCRIT % 31.3* 34.3* 29.8* PLATELETS K/cumm 508* 468* 519* Recent Labs Lab Units 05/29/21 0528 05/28/21195405/28/21 1747 05/28/210 05/28/21 0247 05/27/21 0647 05/27/21 0640 SODIUM [...] Assessment and Plan: Acute respiratory failure Acute TX w CAD s/p CABG x 4 on [...] activity as tolerated Chart reviewed D/w RN GER ED * Elena Kelly NP - 05/29/2021 7:00 [...] on 04/29. He was taken to the wheelabrator operator on 04/30 where they found in-stent thrombosis [...] the ICU. Hospital Course 04/29 Cystoscopy [facility] 04/30 STEMI, wheelabrator operator -> instent thrombosis, angioplasty, IABP, transfer to [facility] 05/04/21: Increased blood clot from osorio and [...] acetaminophen ? ? al & mag hydroxide wvuidikraej-xzdpqhbwxftqgut-wlyxqyhbv-nystatin ??? albuterol ??? dextrose OR dextrose ??? [...] (MAC) Number of days: 12 I/O: Date 05/28/21699 - 05/29/2165805/29/21699 - 05/30/21 0659 Shift 1750-4084 8276-1120 24 Hour Total 7824-4663 9978-9596 24 Hour Total INTAKE P.O. 1440 1440 [...] been reviewed with attending, MD Jaja Kelly, [facility]- [phone], [place] 1 Critical Care Medicine [facility] Cosigned by Dominique Wilkinson MD at 05/31/2021 11:59 AM MANAGER ED GER ED GER ED Associated attestation - Dominique Wilkinson MD - 05/31/2021 11:59 AM MANAGER ED I have seen and examined the patient [...] and Critical Care Surgery Department of Surgery [facility] * Karolina Muñoz NP - 05/28/2021 10:34 PM CST [facility] Critical Care Medicine Daily Progress [...] on 04/29. He was taken to the wheelabrator operator on 04/30 where they found in-stent thrombosis [...] the ICU.?? Hospital Course 04/29 Cystoscopy [place] [facility] 04/30 STEMI, wheelabrator operator -> instent thrombosis, angioplasty, IABP, transfer to [facility] 05/04/21: Increased blood clot from osorio and [...] acetaminophen ? ? al & mag hydroxide suqkcsayktc-ybhchpumwnyockj-bywgmomio-nystatin ??? albuterol ??? dextrose OR dextrose ??? [...] [35 %-60 %] 60 % I/O: Date 05/27/211899 - 05/28/2159 05/28/21 0700 - 05/29/21 0659 Shift 0712-3039 24 Hour Total 7476-0898 8006-1317 24 Hour Total INTAKE P.O. 1445 1440 [...] CTS team #VFib (05/03) s/p defib and Amiodarone/SLAB INSPECTOR infusion -supportive care PULM: #Acute Hypoxic Respiratory [...] CT negative, + COVID 19 changes Consults: Boxing Promoter, ID physician Endo: #Hyperglycemia, labile blood glucose, NPH and scheduled Lispro discontinued -frequent glucose checks with SSI, D10 stopped -HgbA1c > 13 this admission Consults: Endocrinology GI: -Nutrition plan: ADAT, encourage PO intake, supplements RENAL: Lab Results Component Value Date CREATININE 0.40 (L) 05/28/2021 #History of gross hematuria s/p cystoscopy with clot evacuation and transurethral resection of bladder tumor at [facility] -Plavix resumed today, mild hematuria improved -Cystoscopy 05/14/21 with clot evacuation and fulguration for reported tumor -05/21/21 Coude placed, keep Osorio catheter today 2/2 worsening hypoxia with exertion Date 05/27/21 1900 - 05/28/21 0659 05/28/21 0700 - 05/29/21 0659 Shift 3861-8987 24 Hour Total 1991-1501 0386-7748 24 Hour Total INTAKE P.O. 1445 1440 [...] therapy. Please contact the microbiology laboratory at [phone] if identification or susceptibility testing is clinically indicated. Access: Right brachial PICC (05/18) --> place PIV in the AM and discontinue PPx: SCD, Lovenox Assessment and plan has been reviewed with attending, Dr. Dalton Muñoz NP [phone], [place] 1 [facility] Department of Anesthesiology Division of Critical Care Medicine Cosigned by Austin Hoffman MD at 06/09/2021 1:01 PM MANAGER ED GER ED GER ED * Yves Weinberg MD - 05/28/2021 8:58 PM CST Nephrology Progress Note Reading Nephrology SUBJECTIVE 05/28/21 Appears better. All labs [...] at 05/28/20211999 Gross per 24 hour Intake 2002.83 ml Output 2400 ml Net -396.17 ml [...] 1545 ? ? al & mag hydroxide zzetpbvxkhs-ntfupguvqvdnbmq-ulplgaifh-nystatin (MAGIC MOUTHWASH) suspension 1-1-1-1, 20 mL, swish [...] mL IVPB, 2,000 mg, intravenous, Q12H LEAH, Karolina Muñoz NP, Last Rate: 200 mL/hr at [...] Daily-2100, Rhina Granados MD, 40 mg at 05/27/21 2221 ??? glucagon injection 1 mg, 1 mg, intramuscular, Q30 Min PRN, Silviano Huddleston NP ??? guaiFENesin (ROBITUSSIN) 20 mg/mL oral liquid 200 mg, 200 mg, oral, QID PRN, Caleb Toth PA, 200 mg at 05/25/21 9593 ??? insulin lispro (HumaLOG, ADMELOG) 100 unit/mL injection 0-10 Units, 0-10 Units, subcutaneous, TID with meals, Silviano Huddleston NP, 4 Units at 05/28/21 175 ??? insulin lispro (HumaLOG, ADMELOG) 100 unit/mL injection 0-5 Units, 0-5 Units, subcutaneous, Nightly, Silviano Huddleston NP, 1 Units at 05/25/213 ??? lidocaine (LIDODERM) 5 % patch 1 patch, 1 patch, transdermal, Daily, Karolina Muñoz NP, Medication Removed at 05/27/21 2221 [...] (premix) 1,500 mg, 1,500 mg, intravenous, Q12H, Karolina Muñoz NP, 1,500 mg at 05/28/21 1752 [...] Aortic atherosclerosis. No failure. The right IJ Altha-Radha catheter has been retracted with its tip [...] with left pleural fluid decreasing. No pneumothorax. Altha-Radha catheter remainsin place Impression: Decreasing failure, atelectasis [...] with left pleural fluid decreasing. No pneumothorax. Altha-Radha catheter remains in place Impression: Decreasing failure, [...] atelectasis with left pleural fluid. No pneumothorax. Altha-Radha catheter remains in place Impression: Decreasing failure. No pneumothorax. Electronically signed by: Deacon Cummings M.D. XR Chest 1 View - Portable - in AM Result Date: 05/07/2021 Narrative: EXAMINATION: XR CHEST 1 VIEW DATE: 05/07/2021 3:55 AM HISTORY: 60-year-old man follow-upcardiac surgery FINDINGS:Compared with study of the previous day, postsurgical changes in the heartand mediastinum with cardiomegaly are stable. Altha-Radha catheter remains in place. Left thoracostomy tube [...] Interval placement of endotracheal tube, nasogastric tube, Altha-Radha catheter, left thoracostomy tube and mediastinal drain [...] Echo (TTE) Limited Result Date: 05/07/2021 Narrative: [place] [address] Limited Echocardiogram Report Patient Name: DEEPAK ALVARADO : 1960 StudyDate: 05/07/2021 12:16:52 PM Gender: M Tech: Location: [place] [address] Ref.Provider: RHINA GRANADOS Height(Cm): 175 BSA: 2.1 [...] tamponade. Electronically Signed By: Gianni Francois MD, [facility] 2021-05-07 12:54:09 MANAGER ED Transthoracic Echo Complete W Doppler/CF Result Date: 05/02/2021 Narrative: [place] [address] Echocardiogram Report Patient Name: DEEPAK ALVARADO W : 1960 Study Date: 05/02/2021 8:50:02 AM Gender: M Tech: Location: [place] [address] Ref Provider: NALINI CLAYTONHeight(Cm): 175 BSA: 2.11 [...] ventricular size. Left ventricle not well visualized. Th ere is severe hypokinesis of the mid anteroseptal, [...] valve. Electronically Signed By: Rylee Brito DO, [facility], [place], FAISAL 2021-05-02 14:07:25 MANAGER ED CC: CC: CC: ASSESSMENT/PLAN Hyponatremia from SIADH [...] -monitor ?? I can be reached at [phone] with any concerns. Thank you Lc Simons MD for the consult. Yves Weinberg MD [employer] [phone] GER ED * Angelo Vance MD - 05/28/2021 3:16 PM CST Infectious Disease Deepak Adair Lazarus Admit Date: 05/01/2021 LOS: 27 Days Clinical [...] ??C (98 ??F) Recent Labs Lab Units 05/28/2124605/27/21 0640 05/26/21622 WBC K/cumm 12.1* 13.5* 14.0* HEMOGLOBIN g/dL 11.2* 9.9* 10.7* HEMATOCRIT % 34.3* 29.8* 32.6* PLATELETS K/cumm 468* 519* 535* Recent Labs Lab Units 05/28/2124605/27/2163905/27/2163905/26/21 0605/26/21 06 BUN SERUM mg/dL -- 22 -- CREATININE mg/dL 0.40* < > 0.42* < [...] acetaminophen ? ? al & mag hydroxide pnsxhaqjqmv-rksolkqudlpfspk-xtfyfrogr-nystatin ??? albuterol ??? dextrose OR dextrose ??? [...] Continue supportive care Angelo Vance MD 05/28/2021 GER ED * Shruthi Hu COTA - 05/28/2021 2:26 PM CST Occupational Therapy NOTE / SESSION TYPE: DAILY PROGRESS / TREATMENT Patient's Name: Deepak Alvarado Age / Sex: 60 y.o. / male Room: [place] [id number] : 1960 Date of service: 05/28/21 TIME [...] session: Yes Completed patient handoff and notified PAUNCH TRIMMER / RN, name: DEEPAK, of patient's location [...] INTACT Mobility / Transfers: Bed Mobility: MIN [id number] ASSIST FOR TRUNK COMPONENT FROM SUPINE WITH [...] Mariaelena Person OT at 05/28/2021 4:53 PM MANAGER ED GER ED GER ED * Narciso Mayer MD - 05/28/2021 1:25 [...] hematuria as well. Workup revealed an acute TX. Cath showed multi-vessel CAD. Had balloon pump [...] acetaminophen ? ? al & mag hydroxide cmqbouuyqgb-obdkyawisnsbcmf-znqkpfucl-nystatin ??? albuterol ??? dextrose OR dextrose ??? dextrose OR [DISCONTINUED] dextrose ??? glucagon ??? guaiFENesin ??? ondansetron ??? polyethylene glycol ROS Above review of system reviewed on 05/28/2021 Vitals: Vitals: 05/28/21 0400 05/28/21 0414 05/28/21 0500 05/28/21 0600 BP: 107/73 101/66 117/83 Pulse: 91 75 66 Resp: Temp: TempSrc: SpO2: 91% Weight: Height: [...] Assessment and Plan: Acute respiratory failure Acute TX w CAD s/p CABG x 4 on [...] bronchodilators Increase activity as tolerated Chart reviewed GER ED * Lc Simons MD - 05/28/2021 12:40 [...] 1545 ? ? al & mag hydroxide hlwoqwsjbej-rrkhtrvzmzwmouv-wvccgvtzg-nystatin (MAGIC MOUTHWASH) suspension 1-1-1-1 20 mL swish [...] mL IVPB 2,000 mg intravenous Q12H LEAH Karolina Muñoz NP 200 mL/hr at 05/28/21 1042 2,000 [...] 1 mg intramuscular Q30 Min PRN Silviano Huddleston, EFREN ??? guaiFENesin (ROBITUSSIN) 20 mg/mL oral liquid [...] patch 1 patch 1 patch transdermal Daily Karolina Muñoz NPMedication Removed at 05/27/212220 ??? lisinopriL (PRINIVIL,ZESTRIL) tablet 5 mg 5 mg oral Daily Nalini Clayton MD 5 mg at 05/28/21 1100 ??? midodrine (PROAMATINE) tablet 15 mg 15 mg oral TID Silviano Huddleston, FEREN 15 mg at 05/28/21 1008 ??? ondansetron [...] Nightly Silviano Huddleston, EFREN 50 mg at 12/08/058132 ??? sodium bicarbonate tablet 650 mg 650 mg oral BID Yves Weinberg MD 650 mg at 05/28/21 1016 ??? sodium chloride 0.9% flush 0.5-20 mL 0.5-20 mL intra-catheter Q8H Rhina Flores MD 20 mL at 05/28/21 0745 ??? tamsulosin (FLOMAX) extended release capsule 0.4 mg 0.4 mg oral Daily with dinner Elena Kelly NP 0.4 mg at 05/27/21 1743 ??? vancomycin 1500 mg/250 mL in sodium chloride 0.9% (premix) 1,500 mg 1,500 mg intravenous Q12H Karolina Muñoz NP 1,500 mg at 05/28/21 0436 dextrose 10%, 10 mL/hr, Last Rate: 10 mL/hr (05/28/21 1127) ??? acetaminophen ? ? al & mag hydroxide jpcczdfkgxj-lwjybjifzpilqus-jzxvhoptz-nystatin ??? albuterol ??? dextrose OR dextrose ??? [...] and transurethral resection of bladder tumor at [facility] -s/p ??Faroese three way catheter -holding Plavix -cysto 05/14 [...] MD [facility] Hospitalist 05/28/2021 12:40 PM GER ED * Varsha Lee NP - 05/28/2021 11:18 AM CST Cardiothoracic Surgery Note 24 days postop Urgent Coronary Artery Bypass Graft x4 Patient chart reviewed. No acute issues per entry level staff accountant. CTS will continue to follow patient on an as needed basis. Sternal incision is healed and sternum stable to cough. Please let CTS know if you have any questions. LTAC planning in process. Okay for discharge per CTS. Follow up appointment scheduled for patient. Varsha Lee NP Cardiothoracic Surgery [facility] C: [phone] [facility] Cosigned by Rhina Granados MD at 05/29/2021 1:44 PM MANAGER ED GER ED GER ED * Alejandro Gonzalez NP - 05/28/2021 11:04 AM CST [facility] Critical Care Medicine Daily Progress [...] on 04/29. He was taken to the wheelabrator operator on 04/30 where they found in-stent thrombosis [...] the ICU.?? Hospital Course 04/29 Cystoscopy at [facility] 04/30 STEMI, wheelabrator operator -> instent thrombosis, angioplasty, IABP, transfer to [facility] 05/04/21: Increased blood clot from osorio and [...] acetaminophen ? ? al & mag hydroxide rqbzcdwebwo-hkefnzfayyimvnx-qgeoerxzu-nystatin ??? albuterol ??? dextrose OR dextrose ??? [...] - hemodynamically unsupported I/O: Date 05/27/21699 - 05/28/2165805/28/21699 - 05/29/21 0659 Shift 9797-4978 5260-3121 24 Hour Total 8925-1680 3061-2484 24 Hour Total INTAKE P.O. 1445 1445 [...] Plavix today #VFib (05/03) s/p defib and Amiodarone/SLAB INSPECTOR infusion - off both Amiodarone & dobutmaine [...] antibiotics for empiric 7 day course Consults: Boxing Promoter & Infectious Disease Endo: #Hyperglycemia, labile blood [...] and transurethral resection of bladder tumor at [facility] - Plavix was stopped again overnight for [...] 0659 05/28/21 0700 - 05/29/21 0659 Shift 2785-2841 7734-3486 24 Hour Total 9964-4407 3565-9792 24 Hour Total INTAKE P.O. 1445 1445 [...] therapy. Please contact the microbiology laboratory at [phone] if identification or susceptibility testing is clinically indicated. Access: Right brachial PICC (05/18) PPx: SCD, Lovenox Dispo planning for LTACH Assessment and plan has been reviewed with attending, Dr. Jaja Gonzalez NP [phone], [place] 1 [facility] [employer] Department of Anesthesiology Division of Critical Care Medicine Cosigned by Dominique Wilkinson MD at 05/28/2021 2:18 PM MANAGER ED GER ED GER ED Associated attestation - Dominique Wilkinson MD - 05/28/2021 2:18 PM MANAGER ED I have seen and examined the patient [...] and Critical Care Surgery Department of Surgery [facility] * Nalini Clayton MD - 05/28/2021 10:06 AM CST [facility] - Cardiology [facility] Progress Note [...] found for: T3FREE No results found for: [id number] Pain Assessment: No/denies pain Pain Score: 0 [...] 1545 ? ? al & mag hydroxide wfqanxpzejo-mppjhnzjvngezik-wxhjezgty-nystatin (MAGIC MOUTHWASH) suspension 1-1-1-1 20 mL swish [...] - on Statin ? Nalini Clayton MD GER ED * Natan Urias, [facility] - 05/28/2021 4:42 AM CST Pharmacokinetic Consult - Vancomycin Dosing Deepak Alvaardo is a 60 y.o. male who has [...] Day 3 of therapy Natan Urias RPh GER ED * Karolina Muñoz, EFREN - 05/27/2021 10:37 PM CST [facility] Critical Care Medicine Daily Progress [...] on 04/29. He was taken to the wheelabrator operator on 04/30 where they found in-stent thrombosis [...] the ICU.?? Hospital Course 04/29 Cystoscopy [place] [facility] 04/30 STEMI, wheelabrator operator -> instent thrombosis, angioplasty, IABP, transfer to [facility] 05/04/21: Increased blood clot from osorio and [...] acetaminophen ? ? al & mag hydroxide lzzuqbvdgqx-cviwokdzhmzcqhw-ohdrtamuu-nystatin ??? albuterol ??? dextrose OR dextrose ??? [...] parameters for last 24 hours: I/O: Date 05/27/21 07 - 05/28/21 0659 05/28/21 0700 - 05/29/21 0659 Shift 1899-0659 24 Hour Total 5926-4276 7130-3754 24 Hour Total INTAKE P.O. 1445 1445 [...] Farxiga, Corlanor #VFib (05/03) s/p defib and Amiodarone/SLAB INSPECTOR infusion -supportive care PULM: #Acute Hypoxic Respiratory [...] therapy 05/26/21, de-escalate based on susceptibilities Consults: Boxing Promoter, ID physician Endo: #Hyperglycemia, labile blood glucose --> glucose 68 tonight, treated, resume low dose D10 -frequent glucose checks, NPH/SSI -HgbA1c > 13 this admission Consults: Endocrinology GI: -Nutrition plan: ADAT, encourage PO intake RENAL: Lab Results Component Value Date CREATININE 0.40 (L) 05/28/2021 #History of gross hematuria s/p cystoscopy with clot evacuation and transurethral resection of bladder tumor at [facility] -Plavix resumed today, however, noted to have mild hematuria overnight, Plavix on hold for now -Cystoscopy 05/14/21 with clot evacuation and fulguration for reported tumor -05/21/21 Coude placed, keep Osorio catheter today 2/2 worsening hypoxia with exertion Date 05/27/21 07 - 05/28/21 0659 05/28/21 0700 - 05/29/21 0659 Shift 8123-8906 3964-6414 24 Hour Total 0357-3404 6248-5701 24 Hour Total INTAKE P.O. 1445 1445 [...] therapy. Please contact the microbiology laboratory at [phone] if identification or susceptibility testing is clinically indicated. Access: Right brachial PICC (05/18) --> place PIV in the AM and discontinue PPx: SCD, Lovenox Assessment and plan has been reviewed with attending, Dr. Dalton Muñoz NP [phone], [place] 1 [facility] [employer] Department of Anesthesiology Division of Critical Care Medicine Cosigned by Austin Hoffman MD at 06/09/2021 1:01 PM MANAGER ED GER ED GER ED * Ralf Tomlinson MD - 05/27/2021 1:43 PM CST Pulmonary Daily Progress Chief complaint/reason for consult: Respiratory failure. Interval History: On optiflow 40%/55L Afebrile alert Appears comf COVID positive 05/19/21 Presenting History: 60 yo man w COPD, DM, CAD/stents admitted 05/01/21 with chest pain. Had recent hematuria as well. Workup revealed an acute TX. Cath showed multi-vessel CAD. Had balloon pump [...] acetaminophen ? ? al & mag hydroxide ynlwjodxodq-wkupbhlgamcutpq-uegcxmuqw-nystatin ??? albuterol ??? dextrose OR dextrose ??? [...] Assessment and Plan: Acute respiratory failure Acute TX w CAD s/p CABG x 4 on [...] bronchodilators Increase activity as tolerated Chart reviewed GER ED * Yves Weinberg MD - 05/27/2021 1:16 PM CST Nephrology Progress Note Reading Nephrology SUBJECTIVE 05/27/21 Doing about the same. [...] 1545 ? ? al & mag hydroxide qxrufppppxe-mkhsvjbghoxgqyd-mxbrucess-nystatin (MAGIC MOUTHWASH) suspension 1-1-1-1, 20 mL, swish [...] Daily, Varsha Crowder NP, 81 mg at 05/27/21902 ??? atorvastatin (LIPITOR) tablet 80 mg, 80 mg, oral, Nightly, Rhina Granados MD, 80 mg at 05/26/216 ??? cefepime (MAXIPIME) 2,000 mg in sodium [...] Daily, Silviano Huddleston NP, 6 mg at 05/27/21902 ??? dextrose oral liquid liquid 15 g, [...] 6 Units, 6 Units, subcutaneous, Q6H LEAH, Karolina Muñoz, EFREN, 6 Units at 05/27/21 1221 ??? ivabradine (CORLANOR) tablet 5 mg, 5 mg, oral, BID with meals (bkfst, dinner), Stephen Melgar MD, 5 mg at 05/27/21902 ??? lidocaine (LIDODERM) 5 % patch 1 patch, 1 patch, transdermal, Daily, Karolina Muñoz NP, Last Rate: 0 mL/hr at [...] LEAH, Rhina Granados MD, 10 mL at 05/27/21701 ??? spironolactone (ALDACTONE) tablet 25 mg, 25 mg, oral, Daily, Stephen Melgar MD, 25 mg at 05/27/21902 ??? tamsulosin (FLOMAX) extended release capsule 0.4 mg, 0.4 mg, oral, Daily with dinner, Elena Kelly NP, 0.4 mg at 05/26/21 1715 ??? vancomycin (VANCOCIN) 1,250 mg in sodium chloride 0.9% 250 mL IVPB, 15 mg/kg, intravenous, Q12H, Wanda, Renee, COLLEGE TUTOR, Last Rate: 262.5 mL/hr at 05/27/21 1224, [...] Aortic atherosclerosis. No failure. The right IJ Altha-Radha catheter has been retracted with its tip [...] with left pleural fluid decreasing. No pneumothorax. Altha-Radha catheter remainsin place Impression: Decreasing failure, atelectasis [...] with left pleural fluid decreasing. No pneumothorax. Altha-Radha catheter remains in place Impression: Decreasing failure, [...] atelectasis with left pleural fluid. No pneumothorax. Altha-Radha catheter remains in place Impression: Decreasing failure. No pneumothorax. Electronically signed by: Deacon Cummings M.D. XR Chest 1 View - Portable - in AM Result Date: 05/07/2021 Narrative: EXAMINATION: XR CHEST 1 VIEW DATE: 05/07/2021 3:55 AM HISTORY: 60-year-old man follow-upcardiac surgery FINDINGS:Compared with study of the previous day, postsurgical changes in the heartand mediastinum with cardiomegaly are stable. Altha-Radha catheter remains in place. Left thoracostomy tube [...] Interval placement of endotracheal tube, nasogastric tube, Altha-Radha catheter, left thoracostomy tube and mediastinal drain [...] Echo (TTE) Limited Result Date: 05/07/2021 Narrative: [place] [address] Limited Echocardiogram Report Patient Name: DEEPAK ALVARADO : 1960 StudyDate: 05/07/2021 12:16:52 PM Gender: M Tech: Location: [place] [address] Ref.Provider: RHINA GRANADOS Height(Cm): 175 BSA: 2.1 [...] tamponade. Electronically Signed By: Gianni Francois MD, FACC 2021-05-07 12:54:09 MANAGER ED Transthoracic Echo Complete W Doppler/CF Result Date: 05/02/2021 Narrative: [place] [address] Echocardiogram Report Patient Name: DEEPAK ALVARADO W : 1960 Study Date: 05/02/2021 8:50:02 AM Gender: M Tech: Location: [place] [address] Ref Provider: NALINI CLAYTONHeight(Cm): 175 BSA: 2.11 [...] Brito DO, FACJustyna, VILMA, FAISAL 2021-05-02 14:07:25 MANAGER ED CC: CC: CC: ASSESSMENT/PLAN Hyponatremia from SIADH [...] -monitor ?? I can be reached at [phone] with any concerns. Thank you Lc Simons MD for the consult. Yves Weinberg MD [employer] [phone] GER ED * Alejandro Gonzalez, COLLEGE TUTOR - 05/27/2021 12:41 PM CST [facility] Critical Care Medicine Daily Progress Subjective Patient is a 60 y.o. y/o male admitted on 05/01/2021 5:20 PM with the following indication(s) for ICU care - s/p CABG, now with COVID 19 viral pneumonia Interval History: - restarted Plavix > monitor for hematuria - reached out to Dr. Vance via [employer] and left a message asking him to [...] on 04/29. He was taken to the wheelabrator operator on 04/30 where they found in-stent thrombosis [...] the ICU.?? Hospital Course 04/29 Cystoscopy at [facility] 04/30 STEMI, wheelabrator operator -> instent thrombosis, angioplasty, IABP, transfer to [facility] 05/04/21: Increased blood clot from osorio and [...] acetaminophen ? ? al & mag hydroxide apgneamuhst-beksfwpmrffmexd-eeblqcugr-nystatin ??? albuterol ??? dextrose OR dextrose ??? [...] last 24 hours: I/O: Date 05/26/21699 - 05/27/2165805/27/21699 - 05/28/21 0659 Shift 4872-8506 2596-1201 24 Hour Total 6258-0201 9547-4579 24 Hour Total INTAKE P.O. 1300 1300 [...] for hematuria #VFib (05/03) s/p defib and Amiodarone/SLAB INSPECTOR infusion - off both Amiodarone & dobutmaine [...] continue antibiotics and f/u ID recs Consults: Boxing Promoter & Infectious Disease Endo: #Hyperglycemia, labile blood [...] and transurethral resection of bladder tumor at [facility] - Plavix was on hold >>> resumed today > monitor for hematuria - Cystoscopy 05/14/21 with clot evacuation and fulguration for reported tumor - 05/21/21 Coude placed, keep Osorio catheter today 2/2 worsening hypoxia with exertion Date 05/26/21 0700 - 05/27/21 0659 05/27/21 0700 - 05/28/21 0659 Shift 9282-2665 1700-0531 24 Hour Total 9489-6310 1571-9942 24 Hour Total INTAKE P.O. 1300 1300 [...] therapy. Please contact the microbiology laboratory at [phone] if identification or susceptibility testing is clinically indicated. Access: Right brachial PICC (05/18) PPx: SCD, Lovenox Assessment and plan has been reviewed with attending, Dr. Jaja Gonzalez NP [phone], [place] 1 [facility] Department of Anesthesiology Division of Critical Care Medicine Cosigned by Dominique Wilkinosn MD at 05/28/2021 2:16 PM MANAGER ED GER ED GER ED Associated attestation - Dominique Wilkinson MD - 05/28/2021 2:16 PM MANAGER ED I have seen and examined the patient [...] and Critical Care Surgery Department of Surgery [facility] * Nalini Clayton MD - 05/27/2021 12:31 PM CST [facility] - Cardiology [facility] Progress Note [...] found for: T3FREE No results found for: I1RMYZJ Meds MEDICATIONS FOR CURRENT ENCOUNTER: SCHEDULED MEDICATIONS: [...] 1545 ? ? al & mag hydroxide addknggjdeo-kdjvvjquidyozjs-jkmjugxgw-nystatin (MAGIC MOUTHWASH) suspension 1-1-1-1 20 mL swish [...] EF??37%, CABGx4 05/04/2021 - SR 80s on [employer] -Pro 2233 -CTS following ?? COVID 19 [...] - on Statin ? Nalini Clayton MD GER ED * Angelo Vance MD - 05/27/2021 10:52 [...] acetaminophen ? ? al & mag hydroxide obnwiwyucdc-ymhhbbgumisrdpm-vrnxcaluh-nystatin ??? albuterol ??? dextrose OR dextrose ??? [...] Continue supportive care Angelo Vance MD 05/27/2021 GER ED GER ED * Lc Simons MD - 05/27/2021 10:34 [...] 1545 ? ? al & mag hydroxide mhqmaulytib-iujmkolqmlwbdvv-jpfnnxkfg-nystatin (MAGIC MOUTHWASH) suspension 1-1-1-1 20 mL swish [...] Daily Varsha Crowder NP 81 mg at 05/27/21902 ??? atorvastatin (LIPITOR) tablet 80 mg 80 mg oral Nightly Rhina Granados MD 80 mg at 05/26/216 ??? cefepime (MAXIPIME) 2,000 mg in sodium [...] dextrose 10% infusion 10 mL/hr intravenous Continuous Karolina Muñoz NP 10 mL/hr at 05/26/21 1013 10 mL/hr at 05/26/21 1013 ??? dextrose oral liquid liquid 15 g 15 g oral Q15 Min PRN Anibal Lara MD ??? docusate sodium (COLACE) capsule 100 mg 100 mg oral BID Rhina Granados MD 100 mg at 05/27/21 0903 ??? enoxaparin (LOVENOX) syringe 40 mg 40 [...] 6 Units 6 Units subcutaneous Q6H LEAH Karolina Muñoz NP 6 Units at 05/27/21 0036 ??? ivabradine (CORLANOR) tablet 5 mg 5 mg oral BID with meals (bkfst, dinner) Stephen Melgar MD 5mg at 05/27/21902 ??? lidocaine (LIDODERM) 5 % patch 1 patch 1 patch transdermal Daily Karolina Muñoz NP0 mL/hr at 05/26/21 2240 1 [...] LEAH Rhina Granados MD 10 mL at 05/27/21701 ??? spironolactone (ALDACTONE) tablet 25 mg 25 mg oral Daily Stephen Melgar MD 25 mg at 05/27/21902 ??? tamsulosin (FLOMAX) extended release capsule 0.4 mg 0.4 mg oral Daily with dinner Elena Kelly NP 0.4 mg at 05/26/21 1715 ??? vancomycin (VANCOCIN) 1,250 mg in sodium chloride 0.9% 250 mL IVPB 15 mg/kg intravenous Q12H Karolina Muñoz NP 262.5 mL/hr at 05/27/21 0036 1,250 mg at 05/27/21 0036 dextrose 10%, 10 mL/hr, Last Rate: 10 mL/hr (05/26/21 1013) ??? acetaminophen ? ? al & mag hydroxide eisihavdnrb-mmatvjnehcvgkaw-fqavajndy-nystatin ??? albuterol ??? dextrose OR dextrose ??? [...] and transurethral resection of bladder tumor at [facility] -s/p 20??Faroese three way catheter -holding Plavix -cysto 05/14 [...] MD [facility] Hospitalist 05/27/2021 10:34 AM GER ED * Varsha Lee NP - 05/27/2021 9:45 [...] ICU, LTAC? Varsha Lee NP Cardiothoracic Surgery [facility] C: [phone] [facility] Cosigned by Rhina Granados MD at 05/29/2021 1:44 PM MANAGER ED GER ED GER ED * Yves Weinberg MD - 05/26/2021 8:36 PM CST Nephrology Progress Note Reading Nephrology SUBJECTIVE 05/26/21 Doing fair. Appears comfortable. [...] 1545 ? ? al & mag hydroxide ashvyjterse-zfykxvjuxmfbcjd-sskspeopr-nystatin (MAGIC MOUTHWASH) suspension 1-1-1-1, 20 mL, swish [...] dextrose 10% infusion, 10 mL/hr, intravenous, Continuous, Karolina Muñoz NP, Last Rate: 10 mL/hr at [...] meals, Silviano Huddleston NP, 2 Units at 05/26/211715 ??? insulin lispro (HumaLOG, ADMELOG) 100 unit/mL injection 0-5 Units, 0-5 Units, subcutaneous, Nightly, Silviano Huddleston NP, 1 Units at 05/25/212102 ??? insulin lispro (HumaLOG, ADMELOG) 100 unit/mL injection 7 Units, 0.083 Units/kg, subcutaneous, TID with meals, Silviano Huddleston NP, 7 Units at 05/26/211716 ??? insulin NPH (HumuLIN N, NovoLIN N) 100 unit/mL injection 6 Units, 6 Units, subcutaneous, Q6H LEAH, Karolina Muñoz NP, 6 Units at 05/26/21 172 ??? ivabradine (CORLANOR) tablet 5 mg, 5 mg, oral, BID with meals (bkfst, dinner), Stephen Melgar MD, 5 mg at 05/26/211714 ??? lidocaine (LIDODERM) 5 % patch 1 patch, 1 patch, transdermal, Daily, Karolina Muñoz NP, Last Rate: 0 mL/hr at 05/25/212136, 1 patch at 05/26/21 1011 ??? midodrine [...] 250 mL IVPB, 15 mg/kg, intravenous, Q12H, Karolina Muñoz NP Lab/Radiology/Diagnostic Review: Recent Results (from [...] Aortic atherosclerosis. No failure. The right IJ Altha-Radha catheter has been retracted with its tip [...] with left pleural fluid decreasing. No pneumothorax. Altha-Radha catheter remainsin place Impression: Decreasing failure, atelectasis [...] with left pleural fluid decreasing. No pneumothorax. Altha-Radha catheter remains in place Impression: Decreasing failure, [...] atelectasis with left pleural fluid. No pneumothorax. Altha-Radha catheter remains in place Impression: Decreasing failure. No pneumothorax. Electronically signed by: Deacon Cummings M.D. XR Chest 1 View - Portable - in AM Result Date: 05/07/2021 Narrative: EXAMINATION: XR CHEST 1 VIEW DATE: 05/07/2021 3:55 AM HISTORY: 60-year-old man follow-upcardiac surgery FINDINGS:Compared with study of the previous day, postsurgical changes in the heartand mediastinum with cardiomegaly are stable. Altha-Radha catheter remains in place. Left thoracostomy tube [...] Interval placement of endotracheal tube, nasogastric tube, Altha-Radha catheter, left thoracostomy tube and mediastinal drain [...] Echo (TTE) Limited Result Date: 05/07/2021 Narrative: [place] [address] Limited Echocardiogram Report Patient Name: DEEPAK ALVARADO : 1960 StudyDate: 05/07/2021 12:16:52 PM Gender: M Tech: Location: [place] [address] Ref.Provider: RHINA GRANADOS Height(Cm): 175 BSA: 2.1 [...] tamponade. Electronically Signed By: Gianni Francois MD, [facility] :54:09 MANAGER ED Transthoracic Echo Complete W Doppler/CF Result Date: 05/02/2021 Narrative: [place] [address] Echocardiogram Report Patient Name: DEEPAK ALVARADO W : 1960 Study Date: 05/02/2021 8:50:02 AM Gender: M Tech: Location: [place] [address] Ref Provider: NALINI CLAYTONHeight(Cm): 175 BSA: 2.11 [...] Brito DO, FACJustyna, VILMA, FAISAL 2021-05-02 14:07:25 MANAGER ED CC: CC: CC: ASSESSMENT/PLAN Hyponatremia from SIADH [...] -monitor ?? I can be reached at [phone] with any concerns. Thank you Rhina Granados MD for the consult. Yves Weinberg MD [employer] [phone] GER ED * Karolina Muñoz, EFREN - 05/26/2021 4:40 PM CST [facility] Critical Care Medicine Daily Progress [...] on 04/29. He was taken to the wheelabrator operator on 04/30 where they found in-stent thrombosis [...] the ICU.?? Hospital Course 04/29 Cystoscopy [place] [facility] 04/30 STEMI, wheelabrator operator -> instent thrombosis, angioplasty, IABP, transfer to [facility] 05/04/21: Increased blood clot from osorio and [...] acetaminophen ? ? al & mag hydroxide svbxbneqaeh-ebldlkqhtqcpkvh-tsmqlbjxz-nystatin ??? albuterol ??? dextrose OR dextrose ??? [...] last 24 hours: I/O: Date 05/25/211899 - 05/26/2159 05/26/21699 - 05/27/21 0659 Shift 4682-4036 24 Hour Total 9667-6610 4738-9824 24 Hour Total INTAKE P.O. 0 785 [...] surgical intervention #VFib (05/03) s/p defib and Amiodarone/SLAB INSPECTOR infusion -supportive care PULM: #Acute Hypoxic Respiratory [...] therapy today, de-escalate based on susceptibilities Consults: Boxing Promoter Endo: #Hyperglycemia, labile blood glucose -frequent glucose checks, NPH/SSI -HgbA1c > 13 this admission -labile blood glucose, decrease NPH, and adjust D10 as indicated Consults: Endocrinology GI: -Nutrition plan: ADAT, encourage PO intake RENAL: Lab Results Component Value Date CREATININE 0.48 (L) 05/26/2021 #History of gross hematuria s/p cystoscopy with clot evacuation and transurethral resection of bladder tumor at [facility] -Plavix on hold, likely can resume, verify with Dr. Trejo in the AM -Cystoscopy 05/14/21 with clot evacuation and fulguration for reported tumor -05/21/21 Coude placed, keep Osorio catheter today 2/2 worsening hypoxia with exertion Date 05/25/21 1900 - 05/26/21 0659 05/26/21 0700 - 05/27/21 0659 Shift 6709-9437 24 Hour Total 7561-2517 8226-5567 24 Hour Total INTAKE P.O. 0 785 [...] therapy. Please contact the microbiology laboratory at [phone] if identification or susceptibility testing is clinically indicated. Access: Right brachial PICC (05/18) PPx: SCD, Lovenox Assessment and plan has been reviewed with attending, Dr. Jaja Muñoz NP [phone], [place] 1 [facility] [place] Department of Anesthesiology Division of Critical Care Medicine Cosigned by Dominique Wilkinson MD at 05/27/2021 8:39 AM MANAGER ED GER ED GER ED Associated attestation - Dominique Wilkinson MD - 05/27/2021 8:39 AM MANAGER ED I have seen and examined the patient [...] and Critical Care Surgery Department of Surgery [facility] * FonsecaChiara, OT - 05/26/2021 3:27 PM CST Occupational Therapy NOTE / SESSION TYPE: Weekly Progress / Interim ATTEMPT Patient Name: Deepak Alvarado Date of : 1960 Age / Sex: 60 y.o. / male Room: [place] [address] [address] Admit Date: 05/01/2021 Date of Service: 05/26/21 Time In: 15:27 Time Out: 15:37 Primary Diagnosis: ST elevation myocardial infarction (STEMI) ([facility]) HPI: Deepak Alvarado is a 60 y.o. male who presents with ??retrosternal chest pain accompanied by sweating and shortness of breath. Patient underwent bladder surgery (cystoscopy, clot evacuation, and transurethral resection of bladder tumor) ??at [facility] 04/30/2021 and was discharged 05/01/2021. Patient transferred to for emergent cardiac catheterization. Patient admitted with acute anterior wall TX, s/p cardiac cath with PTCA of the [...] session: Yes Completed patient handoff and notified PAUNCH TRIMMER / RN, name: EVELYN, of patient's location [...] - Left: 4/5 THROUGHOUT Hand Dominance: Right Front Office Representative Strength (Right) GOOD Front Office Representative Strength (Left): GOOD PATIENT NOT RECEPTIVE TO OUT OF BED ACTIVITY/ADLs AT THIS TIME DESPITE MAX ENCOURAGEMENT, SAYING, I'LL TAKE A BATH TOMORROW MORNING, BUT I JUST WANT SOME TEA RIGHT NOW. If this is the last note, consider this the discharge summary Chiara Fonseca OT 05/26/21 3:42 PM GER ED * Roya Marquez WELFARE OFFICER - 05/26/2021 3:19 PM CST Physical Therapy PT PROGRESS NOTE Patient refused to participate in therapy repeatedly, states tomorrow morning he will be willing towork with therapy Cosigned by Marcel Cervantes PT at 05/26/2021 3:55 PM MANAGER ED GER ED GER ED * Anibal Lara MD - 05/26/2021 1:52 [...] 1545 ? ? al & mag hydroxide igtxeudighp-mwdltmambcdtwsu-dptxatbkp-nystatin (MAGIC MOUTHWASH) suspension 1-1-1-1 20 mL swish [...] Nightly Rhina Granados MD 80 mg at 05/25/212104 ??? baricitinib (OLUMIANT) tablet EUA 4 mg [...] dextrose 10% infusion 10 mL/hr intravenous Continuous Karolina Muñoz NP 10 mL/hr at 05/26/21 1013 10 mL/hr at 05/26/21 1013 ??? dextrose oral liquid liquid 15 g 15 g oral Q15 Min PRN Anibal Lara MD ??? docusate sodium (COLACE) capsule 100 mg 100 mg oral BID Rhina Granados MD 100 mg at 05/26/21 1011 ??? enoxaparin (LOVENOX) syringe 40 mg 40 mg subcutaneous Daily-2100 Rhina Granados MD 40 mg at107/26/202104 ??? glucagon injection 1 mg 1 mg [...] Units 0.083 Units/kg subcutaneous TIDwith meals Silviano Huddleston, EFREN 7 Units at 05/26/21 1322 ??? insulin NPH (HumuLIN N, NovoLIN N) 100 unit/mL injection 6 Units 6 Units subcutaneous Q6H LEAH Karolina Muñoz NP 6 Units at 05/26/21 1323 ??? ivabradine (CORLANOR) tablet 5 mg 5 mg oral BID with meals (bkfst, dinner) Stephen Melgar MD 5mg at 05/26/21 1040 ??? lidocaine (LIDODERM) 5 % patch 1 patch 1 patch transdermal Daily Karolina Muñoz, EFREN0 mL/hr at 05/25/21 2137 1 patch at 05/26/21 1011 ??? midodrine [...] 250 mL IVPB 15 mg/kg intravenous Q12H Karolina Muñoz NP ??? vancomycin (VANCOCIN) 2,000 mg in sodium chloride 0.9% 500 mL IVPB 25 mg/kg intravenous Once Karolina Muñoz NP dextrose 10%, 10 mL/hr, Last Rate: 10 mL/hr (05/26/21 1013) ??? acetaminophen ? ? al & mag hydroxide tpmsiwggzhf-kahgoioihyupwzv-gmwwjqkej-nystatin ??? albuterol ??? dextrose OR dextrose ??? [...] and transurethral resection of bladder tumor at [facility] -s/p ??Faroese three way catheter -holding Plavix -cysto 05/14 [...] MD [facility] Hospitalist 05/26/2021 1:52 PM GER ED * Ralf Tomlinson MD - 05/26/2021 12:36 PM CST Pulmonary Daily Progress Chief complaint/reason for consult: Respiratory failure. Interval History: On optiflow 100%/60L afebrile Appears comf COVID positive 05/19/21 Presenting History: 60 yo man w COPD, DM, CAD/stents admitted 05/01/21 with chest pain. Had recent hematuria as well. Workup revealed an acute TX. Cath showed multi-vessel CAD. Had balloon pump [...] acetaminophen ? ? al & mag hydroxide sqfpxzosraf-yrelfoqrtbhqlaq-tobmpojyr-nystatin ??? albuterol ??? dextrose OR dextrose ??? [...] Assessment and Plan: Acute respiratory failure Acute TX w CAD s/p CABG x 4 on [...] bronchodilators Increase activity as tolerated Chart reviewed GER ED * Se Godoy [facility] - 05/26/2021 12:18 PM CST Pharmacokinetic Consult [...] Day 1 of therapy. Se Godoy RPh GER ED * Se Godoy RPh - 05/26/2021 11:44 [...] of 0.48 mg/dL (L)). Se Godoy RPh GER ED * Shima Paulson NP - 05/26/2021 10:57 [...] 05/23 ?? HLD - on Statin ?? DESTINI [facility] 05/26/2021 10:57 AM Cosigned by Lester Batista MD at 05/26/2021 11:24 AM MANAGER ED GER ED GER ED * Varsha Lee NP - 05/26/2021 9:06 AM CST Cardiothoracic Surgery Progress Note Deepak Giovany Lazarus 1960 Hospital DAY#25 22 days postop Urgent [...] 459* 457* Recent Labs Lab Units 05/26/21 0623 05/25/21 0300 05/24/21 0348 SODIUM mmol/L 136 132* [...] acute issues over night. Blood gas 05/25 7.47//72 Pulm: Continued optiflow. Pulmonology following. CoVID (+) 05/19/2021--started on Remdesivir and IVsteroids. Started on baricitinib 05/25/2021. GI: Bowel Regimen. Regular diet +supplements. Renal: BUN/Scr 22/0.48 ID: ID following. Continue remdesivir and IV steroids. D/L/T: PICC Prophylaxis: Protonix and Lovenox Dispo: ICU Varsha Lee NP [facility]othoracic [facility] C: [phone] [facility] Cosigned by Rhina Granados MD at 05/26/2021 12:47 PM MANAGER ED GER ED GER ED * Chiara Fonseca OT - 05/26/2021 8:18 AM CST Occupational Therapy 05/26/21 0818 General Session Type Other (comment) (NO OT PROVIDED, NO OT CHARGED) OT Missed Visit Reason Other (comment) MED CANCEL- PATIENT SEEN FAST ASLEEP ON OPTIFLOW 80%/10L, O2 LEVEL AT 79% UPON THERAPIST ARRIVAL; RN AWARE. WILL RE-ATTEMPT OT SESSION PENDING O2 SATS. Chiara Fonseca OT 05/26/21 8:26 AM GER ED GER ED * Cristina Anaya, RD - 05/25/2021 5:58 PM CST Nutrition [...] Chronic obstructive pulmonary disease (CMS/HCC) ([facility]) COPD ??? Coronary artery disease ??? Diabetes mellitus ([facility]) ??? H/O heart artery stent 2006 ??? Hypertension Hypertension ??? ST elevation (STEMI) myocardial infarction ([facility]) 05/01/2021 Medications and Lab Review: Scheduled [...] medication as directed by your doctor. Call [phone] to speak with a dietitian about any diet related concerns. Recommend to follow up with outpatient nutrition counseling, ask your doctor for a referral and call [phone] to make an appointment. Nutrition Follow-Up : 06/01/[address],LD GER ED * Karolina Muñoz NP - 05/25/2021 3:59 PM CST [facility] Critical Care Medicine Daily Progress [...] on 04/29. He was taken to the wheelabrator operator on 04/30 where they found in-stent thrombosis [...] the ICU.?? Hospital Course 04/29 Cystoscopy [place] [facility] 04/[facility] STEMI, wheelabrator operator -> instent thrombosis, angioplasty, IABP, transfer to [facility] 05/04/21: Increased blood clot from osorio and [...] acetaminophen ? ? al & mag hydroxide jvfgzdulcfn-tutpdawkozbipgy-ochcdtvig-nystatin ??? albuterol ??? dextrose OR dextrose ??? dextrose OR [DISCONTINUED] dextrose ??? glucagon ??? glucagon ??? guaiFENesin ??? ondansetron ??? polyethylene glycol Objective Vitals: Most Recent: Vitals: 05/25/211821 BP: Pulse: Resp: Temp: SpO2: 96% 24hr [...] I/O: Date 05/24/211899 - 05/25/21 0659 05/25/21 07 - 05/26/21 0659 Shift 2800-9194 24 Hour Total 8053-0088 3445-7514 24 Hour Total INTAKE P.O. 300 657 425 425 Shift Total(mL/kg) 300(3.8) 657(8.3) 425(5.3) 425(5.3) OUTPUT Urine(mL/kg/hr) 925 1800 550(0.6) 550 Shift Total(mL/kg) 925(11.6) 1800(22.6) 550(6.9) 550(6.9) [facility] -625 -1143 -125 -125 Weight (kg) 79.5 [...] Farxiga, Corlanor #VFib (05/03) s/p defib and Amiodarone/SLAB INSPECTOR infusion -supportive care PULM: #Acute Hypoxic Respiratory [...] COVID 19 changes -COVID medical management Consults: [facility] Promoter Endo: #Hyperglycemia, labile blood glucose -frequent glucose checks, NPH/SSI -HgbA1c > 13 this admission Consults: Endocrinology GI: -Nutrition plan: ADAT, encourage PO intake RENAL: Lab Results Component Value Date CREATININE 0.58 (L) 05/25/2021 #History of gross hematuria s/p cystoscopy with clot evacuation and transurethral resection of bladder tumor at [facility] on hold -Cystoscopy 05/14/21 with clot evacuation and fulguration -05/21/21 Coude placed, keep Osorio catheter today 2/2 worsening hypoxia with exertion Date 05/24/21 1900 - 05/25/21 0659 05/25/21 0700 - 05/26/21 0659 Shift 7169-3663 24 Hour Total 5019-4601 7448-5262 24 Hour Total INTAKE P.O. 300 657 [...] therapy. Please contact the microbiology laboratory at [phone] if identification or susceptibility testing is clinically indicated. Access: Right brachial PICC (05/18) PPx: SCD, Lovenox Assessment and plan has been reviewed with attending, Dr. Jaja Muñoz NP [phone], [place] 1 [facility] Department of Anesthesiology Division of Critical Care Medicine Cosigned by Dominique Wilkinson MD at 05/26/2021 5:38 PM MANAGER ED GER ED GER ED Associated attestation - Dominique Wilkinson MD - 05/26/2021 5:38 PM MANAGER ED I have seen and examined the patient [...] and Critical Care Surgery Department of Surgery [facility] * Shruthi Hu COTA - 05/25/2021 3:27 [...] Chiara Fonseca, OT at 05/25/2021 5:44 PM MANAGER ED GER ED GER ED GER ED * Sandee Paez, PT - 05/25/2021 2:55 [...] OUT: 1525 IHospital Course 04/29 Cystoscopy [facility] 04/30 STEMI, wheelabrator operator -> instent thrombosis, angioplasty, IABP, transfer to [facility] 05/04/21: Increased blood clot from osorio and [...] want hot coffee'. MENTAL STATUS/ORIENTATION: lethargic this date - difficult keeping eyes open. Required coaxing [...] Bed Mobility/Transfers: too lethargic for mobility this date - coaxing just to perform LE exercise. [...] note, please consider this the discharge summary. GER ED * Anibal Lara MD - 05/25/2021 1:43 [...] 1545 ? ? al & mag hydroxide hrtncaxeatp-ljocvetmlrghvjv-ctnepisvz-nystatin (MAGIC MOUTHWASH) suspension 1-1-1-1 20 mL swish [...] subcutaneous TID with meals Silviano Huddleston, EFREN 2 Units at 05/24/21 173 ??? insulin [...] injection 10 Units 10 Units subcutaneous Q6H Karolina Castillo NP 10 Units at 05/25/21 1251 ??? ivabradine (CORLANOR) tablet 5 mg 5 mg oral BID with meals (bkfst, dinner) Stephen Melgar MD 5mg at 05/25/21 0856 ??? lidocaine (LIDODERM) 5 % patch 1 patch 1 patch transdermal Daily Karolina Muñoz NP1 patch at 05/25/21 0936 ??? [...] mg 50 mg oral Nightly Silviano Huddleston, COLLEGE TUTOR 50 mg at ??? sodium chloride 0.9% flush 0.5-20 mL 0.5-20 mL intra-catheter Q8H [facility] Rhina Granados MD 20 mL at 05/25/21 0515 ??? spironolactone (ALDACTONE) tablet 25 mg 25 mg oral Daily Stephen Melgar MD 25 mg at 05/25/21 0855 ??? tamsulosin (FLOMAX) extended release capsule 0.4 mg 0.4 mg oral Daily with dinner Elena Kelly NP 0.4 mg at 05/24/21 1730 ??? acetaminophen ? ? al & mag hydroxide qtmnhjnlvlr-umsuszlnqltqqcy-wyecaifip-nystatin ??? albuterol ??? dextrose OR dextrose ??? [...] and transurethral resection of bladder tumor at [facility] -s/p 20??Faroese three way catheter -holding Plavix -cysto 05/14 [...] MD [facility] 05/25/2021 1:43 PM GER ED * Ralf Tomlinson MD - 05/25/2021 1:37 PM CST Pulmonary Daily Progress Chief complaint/reason for consult: Respiratory failure. Interval History: On optiflow 50%/50L afebrile occ dyspnea Remains on dexamethasone and remdesivir. COVID positive 05/19/21 Presenting History: 60 yo man w COPD, DM, CAD/stents admitted 05/01/21 with chest pain. Had recent hematuria as well. Workup revealed an acute TX. Cath showed multi-vessel CAD. Had balloon pump [...] acetaminophen ? ? al & mag hydroxide bygyuwishlq-yvtwhotrjllyknw-sqahqmknl-nystatin ??? albuterol ??? dextrose OR dextrose ??? [...] Labs: Recent Labs Lab Units 05/25/21 0300 05/24/2134705/23/218 WBC K/cumm 11.2* 10.7* 10.0* HEMOGLOBIN g/dL 10.0* 9.6* 9.0* HEMATOCRIT % 31.6* 29.5* 27.8* PLATELETS K/cumm 459* 457* 408* Recent Labs Lab Units 05/25/21 1223 05/25/21 0920 05/25/21 0300 05/24/21 0646 05/24/218 05/23/21 0402 05/23/218 05/19/21 0143 05/18/21 2137 SODIUM mmol/L -- [...] Assessment and Plan: Acute respiratory failure Acute TX w CAD s/p CABG x 4 on [...] bronchodilators Increase activity as tolerated Chart reviewed GER ED * Yves Weinberg MD - 05/25/2021 12:09 PM CST Nephrology Progress Note Reading Nephrology SUBJECTIVE 05/25/21 Doing fair. All labs [...] 1545 ? ? al & mag hydroxide dngnaarrwdy-lgtzfhryxwnpvua-cejisvklt-nystatin (MAGIC MOUTHWASH) suspension 1-1-1-1, 20 mL, swish [...] mg, oral, BID, 100 mg at 05/25/21 0855 OR [DISCONTINUED] docusate (COLACE) 10 mg/mL oral [...] Silviano Huddleston NP, 2 Units at 05/24/21 1731 ??? insulin lispro (HumaLOG, ADMELOG) 100 unit/mL injection 0-5 Units, 0-5 Units, subcutaneous, Nightly, Silviano Huddleston NP, 1 Units at 05/24/212048 ??? insulin lispro (HumaLOG, ADMELOG) 100 unit/mL injection 7 Units, 0.083 Units/kg, subcutaneous, TID with meals, Silviano Huddleston NP, 7 Units at 05/24/21 1731 ??? insulin NPH (HumuLIN N, NovoLIN N) 100 unit/mL injection 10 Units, 10 Units, subcutaneous, Q6H [facility], Karolina Muñoz NP ??? ivabradine (CORLANOR) tablet 5 mg, 5 mg, oral, BID with meals (bkfst, dinner), Stephen Melgar MD, 5 mg at 05/25/21 0856 ??? lidocaine (LIDODERM) 5 % patch 1 patch, 1 patch, transdermal, Daily, Karolina Muñoz NP, 1 patch at 05/25/21 0936 [...] 50 mg, 50 mg, oral, Nightly, Silviano Huddlestno NP, 50 mg at 05/24/212047 ??? sodium chloride 0.9% flush 0.5-20 mL, 0.5-20 mL, intra-catheter, Q8H [facility] MD, 20 mL at 05/25/21 0515 ??? spironolactone (ALDACTONE) tablet 25 mg, 25 mg, oral, Daily, Stephen Melgar MD, 25 mg at 05/25/21 0855 ??? tamsulosin (FLOMAX) extended release capsule 0.4 mg, 0.4 mg, oral, Daily with dinner, Elena Kelly NP, 0.4 mg at 05/24/21 173 Lab/Radiology/Diagnostic Review: Recent Results (from the past [...] Aortic atherosclerosis. No failure. The right IJ Altha-Radha catheter has been retracted with its tip [...] with left pleural fluid decreasing. No pneumothorax. Altha-Radha catheter remainsin place Impression: Decreasing failure, atelectasis [...] with left pleural fluid decreasing. No pneumothorax. Altha-Radha catheter remains in place Impression: Decreasing failure, [...] atelectasis with left pleural fluid. No pneumothorax. Altha-Radha catheter remains in place Impression: Decreasing failure. No pneumothorax. Electronically signed by: Deacon Cummings M.D. XR Chest 1 View - Portable - in AM Result Date: 05/07/2021 Narrative: EXAMINATION: XR CHEST 1 VIEW DATE: 05/07/2021 3:55 AM HISTORY: 60-year-old man follow-upcardiac surgery FINDINGS:Compared with study of the previous day, postsurgical changes in the heartand mediastinum with cardiomegaly are stable. Altha-Radha catheter remains in place. Left thoracostomy tube [...] Interval placement of endotracheal tube, nasogastric tube, Altha-Radha catheter, left thoracostomy tube and mediastinal drain [...] Echo (TTE) Limited Result Date: 05/07/2021 Narrative: [place] [address] Limited Echocardiogram Report Patient Name: DEEPAK ALAVRADO : 1960 StudyDate: 05/07/2021 12:16:52 PM Gender: M Tech: Location: [id number] Ref.Provider: RHINA GRANADOS Height(Cm): 175 BSA: 2.1 [...] tamponade. Electronically Signed By: Gianni Francois MD, [facility] :54:09 MANAGER ED Transthoracic Echo Complete W Doppler/CF Result Date: 05/02/2021 Narrative: [place] [address] Echocardiogram Report Patient Name: DEEPAK ALVARADO W : 1960 Study Date: 05/02/2021 8:50:02 AM Gender: M Tech: Location: [id number] Ref Provider: NALINI CLAYTONHeight(Cm): 175 BSA: 2.11 [...] valve. Electronically Signed By: Rylee Brito, , [facility], [place], [facility] 2021-05-02 14:07:25 MANAGER ED CC: CC: CC: ASSESSMENT/PLAN Hyponatremia from SIADH [...] -monitor ?? I can be reached at [phone] with any concerns. Thank you Rhian Granados MD for the consult. Yves Weinberg MD [employer] [phone] GER ED * Nalini Clayton MD - 05/25/2021 9:44 AM CST [facility] - Cardiology [facility] Progress Note [...] found for: T3FREE No results found for: [id number] Pain Assessment: No/denies pain Meds MEDICATIONS FOR [...] injection 10 Units 10 Units subcutaneous Q6H [facility] ??? ivabradine (CORLANOR) tablet 5 mg 5 [...] 1545 ? ? al & mag hydroxide hcrydhqpxgd-lwbmohmlzhlmtwr-qhiheiylb-nystatin (MAGIC MOUTHWASH) suspension 1-1-1-1 20 mL swish [...] 05/04/2021 - SR 80s on tele -Pro 223 -CTS following ? COVID 19 - dx [...] - on Statin ?? Nalini Clayton MD GER ED * Varsha Lee, EFREN - 05/25/2021 9:40 AM CST Cardiothoracic Surgery [...] Access: picc Recent Labs Lab Units 05/25/21 03005/24/2134705/23/21317 WBC K/cumm 11.2* 10.7* 10.0* HEMOGLOBIN g/dL 10.0* 9.6* 9.0* HEMATOCRIT % 31.6* 29.5* 27.8* PLATELETS K/cumm 459* 457* 408* Recent Labs Lab Units 05/25/21 03005/24/2134705/23/21317 SODIUM mmol/L 132* 133* 132* POTASSIUM PLASMA mmol/L 4.2 4.3 3.5 CHLORIDE mmol/L 96* 96* 95* CO2 mmol/L 23 24 23 BUN SERUM mg/dL 24 23 21 CREATININE mg/dL 0.58* 0.60* 0.48* CALCIUM mg/dL 9.0 8.8 8.4* Recent Labs Lab Units 05/25/21 0905/18/211952 PH ART 7.47* 7.45 PCO2 ART mmHg [...] Dispo: ICU Varsha Lee NP Cardiothoracic Surgery [facility] C: [phone] [facility] Cosigned by Rhina Granados MD at 05/25/2021 3:02 PM MANAGER ED GER ED GER ED * Yves Weinberg MD - 05/24/2021 2:04 PM CST Nephrology Progress Note Reading Nephrology SUBJECTIVE 05/24/21 Pt seen/examined. All labs [...] mg, 650 mg, oral, Q6H PRN, Eleonora Duatre NP, 650 mg at 05/21/21 1545 ? ? al & mag hydroxide ucuvymerhzk-nveyohszkmjlliq-fenhencsg-nystatin (MAGIC MOUTHWASH) suspension 1-1-1-1, 20 mL, swish [...] Silviano Huddleston NP, 1 Units at 05/23/21 213 ??? insulin lispro (HumaLOG, ADMELOG) 100 unit/mL [...] flush 0.5-20 mL, 0.5-20 mL, intra-catheter, Q8H [facility], Rhina Granados MD, 10 mL at 05/24/21 [...] Aortic atherosclerosis. No failure. The right IJ Altha-Radha catheter has been retracted with its tip [...] with left pleural fluid decreasing. No pneumothorax. Altha-Radha catheter remainsin place Impression: Decreasing failure, atelectasis [...] with left pleural fluid decreasing. No pneumothorax. Altha-Radha catheter remains in place Impression: Decreasing failure, [...] atelectasis with left pleural fluid. No pneumothorax. Altha-Radha catheter remains in place Impression: Decreasing failure. No pneumothorax. Electronically signed by: Deacon Cummings M.D. XR Chest 1 View - Portable - in AM Result Date: 05/07/2021 Narrative: EXAMINATION: XR CHEST 1 VIEW DATE: 05/07/2021 3:55 AM HISTORY: 60-year-old man follow-upcardiac surgery FINDINGS:Compared with study of the previous day, postsurgical changes in the heartand mediastinum with cardiomegaly are stable. Altha-Radha catheter remains in place. Left thoracostomy tube [...] Interval placement of endotracheal tube, nasogastric tube, Altha-Radha catheter, left thoracostomy tube and mediastinal drain [...] Echo (TTE) Limited Result Date: 05/07/2021 Narrative: [place] [address] Limited Echocardiogram Report Patient Name: DEEPAK ALVARADO : 1960 StudyDate: 05/07/2021 12:16:52 PM Gender: M Tech: Location: [place] [id number] Ref.Provider: RHINA GRANADOS Height(Cm): 175 BSA: 2.1 [...] tamponade. Electronically Signed By: Gianni Francois MD, [facility] :54:09 MANAGER ED Transthoracic Echo Complete W Doppler/CF Result Date: 05/02/2021 Narrative: [place] [address] Echocardiogram Report Patient Name: DEEPAK ALVARADO W : 1960 Study Date: 05/02/2021 8:50:02 AM Gender: M Tech: Location: [place] [address] Ref Provider: NALINI CLAYTONHeight(Cm): 175 BSA: 2.11 [...] valve. Electronically Signed By: Rylee Brito DO, [facility], [place], [facility] 2021-05-02 14:07:25 MANAGER ED CC: CC: CC: ASSESSMENT/PLAN Hyponatremia from SIADH [...] -monitor ?? I can be reached at [phone] with any concerns. Thank you Rhina Granados MD for the consult. Yves Weinberg MD [employer] [phone] GER ED * Natalie Castañeda NP - 05/24/2021 1:20 [...] 37%, CABGx4 05/04/2021 - SR 80s on VISUAL NACERTPro 2233 -CTS following COVID 19 - dx [...] HLD - on Statin Natalie Castañeda NP [facility] 05/24/2021 1:20 PM Cosigned by Blue Cooley Jr., MD at 05/24/2021 1:31 PM MANAGER ED GER ED GER ED * Anibal Lara MD - 05/24/2021 11:53 [...] 1545 ? ? al & mag hydroxide nyexmoeumau-mwzdqkbnvhpzres-vhyibgoyj-nystatin (MAGIC MOUTHWASH) suspension 1-1-1-1 20 mL swish [...] Daily Varsha Crowder NP 81 mg at 05/24/21 0846 ??? [...] meals Silviano Huddleston, EFREN 4 Units at 05/23/211818 ??? insulin lispro (HumaLOG, ADMELOG) 100 unit/mL injection 0-5 Units 0-5 Units subcutaneous Nightly Silviano Huddleston, EFREN 1 Units at 05/23/212130 ??? insulin lispro (HumaLOG, ADMELOG) 100 unit/mL injection 7 Units 0.083 Units/kg subcutaneous TIDwith meals Silviano Huddleston, EFREN 7 Units at 05/24/21 0958 ??? insulin NPH (HumuLIN N, NovoLIN N) 100 unit/mL injection 8 Units 8 Units subcutaneous Q6H [facility] Silviano Huddleston, EFREN 8 Units at 05/24/21 0639 ??? ivabradine (CORLANOR) tablet 5 mg 5 mg oral BID with meals (bkfst, dinner) Stephen Melgar MD 5mg at 05/24/21 0846 ??? midodrine (PROAMATINE) tablet 15 mg 15 mg oral TID Silviano Huddleston, COLLEGE TUTOR 15 mg at 05/24/21 0846 ??? ondansetron (ZOFRAN) injection 4 mg 4 mg intravenous Q6H PRN Rhina Granados MD ??? pantoprazole DR (PROTONIX) extended release tablet 40 mg 40 mg oral Daily Rhina Granados MD40 mg at 05/24/21 0846 ??? polyethylene glycol (MIRALAX) packet 17 g 17 g oral Daily PRN Rhina Granados MD ??? QUEtiapine (SEROquel) tablet 50 mg 50 mg oral Nightly Silviano Huddleston NP 50 mg at ??? sodium chloride 0.9% flush 0.5-20 mL 0.5-20 mL intra-catheter Q8H [facility] Rhina Granados MD 10 mL at 05/24/21 0641 ??? sodium phosphate - potassium phosphate (K-PHOS NEUTRAL) tablet 250 mg 250 mg oral TID with meals Silviano Huddleston NP 250 mg at 05/24/21 0846 ??? spironolactone (ALDACTONE) tablet 25 mg 25 mg oral Daily Stephen Melgar MD 25 mg at 05/24/2146 ??? tamsulosin (FLOMAX) extended release capsule 0.4 mg 0.4 mg oral Daily with dinner Elena Kelly NP 0.4 mg at 05/23/21 1806 ??? acetaminophen ? ? al & mag hydroxide taqqzsvhtqz-osdfqugjljcfjad-edwxwvuri-nystatin ??? albuterol ??? dextrose OR dextrose ??? [...] and transurethral resection of bladder tumor at [facility] -s/p 20??Faroese three way catheter -holding Plavix -cysto 05/14 [...] MD [facility] 05/24/2021 11:53 AM GER ED * Lc Perez MD - 05/24/2021 9:14 AM CST Pulmonary Daily Progress Chief complaint/reason for consult: Respiratory failure. Interval History: Patient with improved oxygenation. Currently on 60% FiO2 45 liters/minute. Remains on dexamethasoneand remdesivir. COVID positive 05/19/21 Presenting History: 60 yo man w COPD, DM, CAD/stents admitted 05/01/21 with chest pain. Had recent hematuria as well. Workup revealed an acute TX. Cath showed multi-vessel CAD. Had balloon pump [...] acetaminophen ? ? al & mag hydroxide mpotvvkwsea-trxbizqujiagjid-scndxqnwr-nystatin ??? albuterol ??? dextrose OR dextrose ??? [...] Assessment and Plan: Acute respiratory failure Acute TX w CAD s/p CABG x 4 on [...] bronchodilators Increase activity as tolerated Chart reviewed GER ED * Silviano Huddleston NP - 05/24/2021 8:09 [...] on 04/29. He was taken to the wheelabrator operator on 04/30 where they found in-stent thrombosis [...] the ICU.? Hospital Course 04/29 Cystoscopy [facility] 04/[facility] STEMI, wheelabrator operator -> instent thrombosis, angioplasty, IABP, transfer to [facility] 05/04/21: Increased blood clot from osorio and [...] acetaminophen ? ? al & mag hydroxide krklaamflwb-plogxikzvluzrid-xpjbsxkty-nystatin ??? albuterol ??? dextrose OR dextrose ??? [...] last 24 hours: I/O: Date 05/23/21699 - 05/24/21 0659 05/24/21 07 - 05/25/21 0659 Shift 4247-5788 0029-6750 24 Hour Total 7894-8223 2882-1729 24 Hour Total INTAKE P.O. 0097 356 8961 357 357 I.V.(mL/kg) 165(2.1) 527(6.6) 692(8.7) Shift Total(mL/kg) 1245(15.7) 647(8.1) 1892(23.8) 357(4.5) 357(4.5) OUTPUT Urine(mL/kg/hr) 1845(1.9) 790(0.8) 2635(1.4) 200 200 Shift Total(mL/kg) 1845(23.2) 790(9.9) 2635(33.1) 200(2.5) 200(2.5) NET -361 -843 -392 157 157 Weight (kg) 79.5 79.5 79.5 [...] evacuation and cessation of bleeding sites - 12/2 Coud?? placed, Consider removing osorio in AM [...] Dominique Wilkinson MD at 05/25/2021 1:39 PM MANAGER ED GER ED GER ED * Yves Weinberg MD - 05/23/2021 5:15 PM CST Nephrology Progress Note Reading Nephrology SUBJECTIVE 05/23/21 Pt seen/examined. All labs [...] Position: Pulse: 87 87 89 95 Resp: 26 30 27 28 Temp: TempSrc: SpO2: Weight: Height: Intake/Output [...] 1545 ? ? al & mag hydroxide azixibivyvx-pznpkoeywqlydlw-taeohrpxw-nystatin (MAGIC MOUTHWASH) suspension 1-1-1-1, 20 mL, swish [...] Varsha Crowder NP, 81 mg at 05/23/21 08 ??? atorvastatin (LIPITOR) tablet 80 mg, 80 mg, oral, Nightly, Rhina Granados MD, 80 mg at 05/22/212019 ??? dapagliflozin (FARXIGA) tablet 10 mg, 10 mg, oral, Daily, Stephen Melgar MD, 10 mg at ??? dexAMETHasone (DECADRON) 4 mg/mL injection 6 mg, 6 mg, intravenous, Daily, Silviano Huddleston NP, 6 mg at 05/23/21851 ??? dextrose oral liquid liquid 15 g, [...] mg, 1 mg, intramuscular, Q30 Min PRN, nAibal Lara MD ??? glucagon injection 1 mg, [...] Kelly NP, Last Rate: 270 mL/hr at 05/22/21 2311, 100 mg at 05/22/21 231 ??? sodium chloride 0.9% flush 0.5-20 mL, [...] Aortic atherosclerosis. No failure. The right IJ Altha-Radha catheter has been retracted with its tip [...] with left pleural fluid decreasing. No pneumothorax. Altha-Radha catheter remainsin place Impression: Decreasing failure, atelectasis [...] with left pleural fluid decreasing. No pneumothorax. Altha-Radha catheter remains in place Impression: Decreasing failure, [...] atelectasis with left pleural fluid. No pneumothorax. Altha-Radha catheter remains in place Impression: Decreasing failure. No pneumothorax. Electronically signed by: Deacon Cummings M.D. XR Chest 1 View - Portable - in AM Result Date: 05/07/2021 Narrative: EXAMINATION: XR CHEST 1 VIEW DATE: 05/07/2021 3:55 AM HISTORY: 60-year-old man follow-upcardiac surgery FINDINGS:Compared with study of the previous day, postsurgical changes in the heartand mediastinum with cardiomegaly are stable. Altha-Radha catheter remains in place. Left thoracostomy tube [...] Richard Lopez II, D.O. XR Chest 1 View - [...] Interval placement of endotracheal tube, nasogastric tube, Altha-Radha catheter, left thoracostomy tube and mediastinal drain [...] Echo (TTE) Limited Result Date: 05/07/2021 Narrative: [place] [address] Limited Echocardiogram Report Patient Name: DEEPAK ALVARADO : 1960 StudyDate: 05/07/2021 12:16:52 PM Gender: M Tech: Location: [id number] Ref.Provider: MUNFAKH, RHINA Height(Cm): 175 BSA: 2.1 Weight(Kg): 91 Heart [...] tamponade. Electronically Signed By: Gianni Francois MD, [facility] :54:09 MANAGER ED Transthoracic Echo Complete W Doppler/CF Result Date: 05/02/2021 Narrative: [place] [address] Echocardiogram Report Patient Name: DEEPAK ALVARADO W : 1960 Study Date: 05/02/2021 8:50:02 AM Gender: M Tech: Location: [id number] Ref Provider: NALINI CLAYTONHeight(Cm): 175 BSA: 2.11 [...] Brito DO, FACJustyna, [place], FAISAL 2021-05-02 14:07:25 MANAGER ED CC: CC: CC: ASSESSMENT/PLAN Hyponatremia from SIADH [...] -monitor ?? I can be reached at [phone] with any concerns. Thank you Rhina Granados MD for the consult. Yves Weinberg MD [employer] [phone] GER ED * Silviano Huddleston NP - 05/23/2021 1:42 [...] on 04/29. He was taken to the wheelabrator operator on 04/30 where they found in-stent thrombosis [...] the ICU.? Hospital Course 04/29 [facility]ystoscopy [place] [facility] 04/[facility] STEMI, wheelabrator operator -> instent thrombosis, angioplasty, IABP, transfer to [facility] 05/04/21: Increased blood clot from osorio and [...] acetaminophen ? ? al & mag hydroxide crbayrgkcjg-keifeswhcjnvhyt-yohbgwloi-nystatin ??? albuterol ??? dextrose OR dextrose ??? [...] parameters for last 24 hours: I/O: Date 05/22/21699 - 05/23/2165805/23/21699 - 05/24/21 0659 Shift 1804-5631 5519-9022 24 Hour Total 3639-4894 7788-5139 24 Hour Total INTAKE P.O. 740 740 [...] Dominique Wilkinson MD at 05/25/2021 7:57 AM MANAGER ED GER ED GER ED Associated attestation - Dominique Wilkinson MD - 05/25/2021 7:57 AM MANAGER ED I have seen and examined the patient [...] and Critical Care Surgery Department of Surgery [facility] * Anibal Lara MD [...] 87 Resp: Temp: TempSrc: SpO2: Weight: Height: Wt [...] 1545 ? ? al & mag hydroxide awwsyyyxzkm-baeionpikygmkma-omvoqtjyn-nystatin (MAGIC MOUTHWASH) suspension 1-1-1-1 20 mL swish [...] Varsha Crowder NP 81 mg at 05/23/21 0852 ??? atorvastatin (LIPITOR) tablet 80 mg 80 [...] Nightly Silviano Huddleston NP 50 mg at 020 ??? remdesivir (VEKLURY) 100 mg in sodium [...] acetaminophen ? ? al & mag hydroxide rtxwnjaaavf-oxneqxhtclmjlpj-sbxvhpgin-nystatin ??? albuterol ??? dextrose ??? dextrose OR [...] and transurethral resection of bladder tumor at [facility] -s/p ??Faroese three way catheter -holding Plavix -cysto 05/14 [...] MD [facility] 05/23/2021 1:19 PM GER ED * Stephen Melgar MD - 05/23/2021 11:59 [...] hematuria as well. Workup revealed an acute TX. Cath showed multi-vessel CAD. Had balloon pump [...] acetaminophen ? ? al & mag hydroxide vrnchcaihgf-dwdvdisrdgjrzov-myiwcmpjy-nystatin ??? albuterol ??? dextrose ??? dextrose OR [...] 05/04/2021 -- SR 80s on tele Pro 2232 -- stable, follow ?? COVID [...] farxiga good for chf corlanor for chf GER ED * Lc Perez MD - 05/23/2021 8:50 [...] hematuria as well. Workup revealed an acute TX. Cath showed multi-vessel CAD. Had balloon pump [...] regular, 0-30 Units/hr, Last Rate: 1.7 Units/hr (05/23/21827) PRN Meds:.??? acetaminophen ? ? al & mag hydroxide fmgjchgeyjl-olkzilxdaxwzrqp-gxkwnymfz-nystatin ??? albuterol ??? dextrose ??? dextrose OR [...] 0402 05/23/21 0318 05/22/21 0625 05/22/21 0349 05/21/21214005/21/21211705/19/21 0143 05/18/21 2137 05/17/21 0936 05/17/21 0333 [...] Assessment and Plan: Acute respiratory failure Acute TX w CAD s/p CABG x 4 on [...] bronchodilators Increase activity as tolerated Chart reviewed GER ED * Yves Weinberg MD - 05/22/2021 9:12 PM CST Nephrology Progress Note Reading Nephrology SUBJECTIVE 05/22/21 Pt seen/examined. All labs [...] 05/22/21 1900 05/22/21 1915 05/22/21 1930 05/22/21 1945 BP: 108/65 112/63 99/64 102/63 Pulse: 85 88 82 80 Resp: 23 17 27 22 Temp: TempSrc: SpO2: Weight: Height: Intake/Output Summary (Last 24 hours) at 05/22/2021 2112 Last data filed at 05/22/2021 1805 Gross [...] 1545 ? ? al & mag hydroxide qbijtlnmnew-wdhiqoywwmuwldq-jnnneggoc-nystatin (MAGIC MOUTHWASH) suspension 1-1-1-1, 20 mL, swish & spit, Q4H PRN, Elnea Kelly NP ??? albuterol 2.5 mg /3 [...] MD, 80 mg at 05/22/21 2020 ??? dexAMETHasone (DECADRON) 4 mg/mL injection 6 [...] Kelly NP, Last Rate: 270 mL/hr at 05/21/217, 100 mg at 05/21/212356 ??? sodium chloride 0.9% flush 0.5-20 mL, 0.5-20 mL, intra-catheter, Q8H [facility], Rhina Granados MD, 10 mL at 05/22/21 [...] Aortic atherosclerosis. No failure. The right IJ Altha-Radha catheter has been retracted with its tip [...] with left pleural fluid decreasing. No pneumothorax. Altha-Radha catheter remainsin place Impression: Decreasing failure, atelectasis [...] with left pleural fluid decreasing. No pneumothorax. Altha-Radha catheter remains in place Impression: Decreasing failure, [...] atelectasis with left pleural fluid. No pneumothorax. Altha-Radha catheter remains in place Impression: Decreasing failure. No pneumothorax. Electronically signed by: Deacon Cummings M.D. XR Chest 1 View - Portable - in AM Result Date: 05/07/2021 Narrative: EXAMINATION: XR CHEST 1 VIEW DATE: 05/07/2021 3:55 AM HISTORY: 60-year-old man follow-upcardiac surgery FINDINGS:Compared with study of the previous day, postsurgical changes in the heartand mediastinum with cardiomegaly are stable. Altha-Radha catheter remains in place. Left thoracostomy tube [...] Interval placement of endotracheal tube, nasogastric tube, Altha-Radha catheter, left thoracostomy tube and mediastinal drain [...] Echo (TTE) Limited Result Date: 05/07/2021 Narrative: [place] [address] Limited Echocardiogram Report Patient Name: DEEPAK ALVARADO : 1960 StudyDate: 05/07/2021 12:16:52 PM Gender: M Tech: SR Location: [place] [address] Ref.Provider: RHINA GRANADOS Height(Cm): 175 BSA: 2.1 [...] tamponade. Electronically Signed By: Gianni Francois MD, [facility] :54:09 MANAGER ED Transthoracic Echo Complete W Doppler/CF Result Date: 05/02/2021 Narrative: [place] [id number] Echocardiogram Report Patient Name: DEEPAK ALVARADO W : 1960 Study Date: 05/02/2021 8:50:02 AM Gender: M Tech: SR Location: [id number] Ref Provider: Yo CLAYTONight(Cm): 175 BSA: 2.11 [...] valve. Electronically Signed By: Rylee Brito DO, [facility], [place], [facility] 2021-05-02 14:07:25 MANAGER ED CC: CC: CC: ASSESSMENT/PLAN Hyponatremia from SIADH [...] -monitor ?? I can be reached at [phone] with any concerns. Thank you Rhina Granados MD for the consult. Y[facility] Weinberg [facility] [employer] [phone] GER ED * Ellen Shore, WELFARE OFFICER - 05/22/2021 4:07 PM CST Physical Therapy PT PROGRESS NOTE Deepak Adair Lazarus 60 y.o. 1960 Past Medical History: Diagnosis Date ??? Chronic obstructive pulmonary disease (CMS/HCC) (HCC) COPD ??? Coronary artery disease ??? Diabetes mellitus (HCC) ??? H/O heart artery stent 2006 ??? Hypertension Hypertension ??? ST elevation (STEMI) myocardial infarction (HCC) 05/01/2021 History reviewed. No pertinent surgical history. Patient Active Problem List Diagnosis ??? ST elevation myocardial infarction (STEMI) ([facility]) TIME IN: 1607 TIME OUT: 1630 [...] this the discharge summary. Cosigned by Sandee Paez PT at 05/25/2021 7:46 AM MANAGER ED GER ED GER ED * Shruthi Hu COTA - 05/22/2021 3:09 PM CST Occupational Therapy NOTE / SESSION TYPE: DAILY PROGRESS / TREATMENT Patient's Name: Deepak Alvarado Age / Sex: 60 y.o. / male Room: [place] [address] : 1960 Date of service: 05/22/21 TIME [...] session: Yes Completed patient handoff and notified PAUNCH TRIMMER / RN, name: TIANA, of patient's location [...] > STANDING AT EOB WITHOUT DEVICE AND SFHQ-PC-CNTA ASSIST ONLY CGA WITH [id number] ASSISTANCE FROM STANDING AT EOB > SEATED [...] Chiara Fonseca OT at 05/22/2021 5:19 PM MANAGER ED GER ED GER ED * Anibal Lara MD - 05/22/2021 1:21 [...] 1545 ? ? al & mag hydroxide thjfzjetkis-iwthuzzyuhkwkkz-hrosecscn-nystatin (MAGIC MOUTHWASH) suspension 1-1-1-1 20 mL swish [...] Nightly Rhina Granados MD 80 mg at ??? dexAMETHasone (DECADRON) 4 mg/mL [...] acetaminophen ? ? al & mag hydroxide kvktufsjiqv-oqyfchlndspjvxg-gcdjybvat-nystatin ??? albuterol ??? dextrose ??? dextrose OR [...] and transurethral resection of bladder tumor at [facility] -s/p 20??Faroese three way catheter -holding Plavix -cysto 05/14 [...] MD [facility] Hospitalist 05/22/2021 1:21 PM GER ED * Ralf Tomlinson MD - 05/22/2021 11:25 AM CST Pulmonary Daily Progress Chief complaint/reason for consult: Respiratory failure. Interval History: on optiflow 75%/50L, sats 100% Alert but confused Afebrile No sputum or chest pain COVID positive 05/19/21 Presenting History: 60 yo man w COPD, DM, CAD/stents admitted 05/01/21 with chest pain. Had recent hematuria as well. Workup revealed an acute TX. Cath showed multi-vessel CAD. Had balloon pump [...] acetaminophen ? ? al & mag hydroxide rqfuxeplgve-umxxmclaxfktbjp-oexijrbrh-nystatin ??? albuterol ??? dextrose ??? dextrose OR [...] Assessment and Plan: Acute respiratory failure Acute TX w CAD s/p CABG x 4 on [...] bronchodilators Increase activity as tolerated Chart reviewed GER ED * Varsha Lee NP - 05/22/2021 9:15 [...] is stable to cough Rt SVG site LANDMEN with steri-strips C/D/I Neurological: Mental Status: He is alert. Access: picc Recent Labs Lab Units 05/22/2134805/21/217 05/20/21 0328 WBC K/cumm 7.3 8.3 9.3 HEMOGLOBIN g/dL 9.2* 9.5* 10.6* HEMATOCRIT % 28.0* 28.7* 32.5* PLATELETS K/cumm 381 355 381 Recent Labs Lab Units 05/22/2134805/21/21211705/21/21 0413 SODIUM mmol/L 134* 135 135 POTASSIUM [...] Dispo: ICU Varsha Lee NP Cardiothoracic Surgery [facility] C: [phone] [facility] Cosigned by Rhina Granados MD at 05/22/2021 3:15 PM MANAGER ED GER ED GER ED * Angelo Vance MD - 05/22/2021 9:04 [...] 355 381 Recent Labs Lab Units 05/22/21 03405/21/21211705/21/21 21105/21/21 0413 05/21/21 0413 BUN SERUM mg/dL [...] acetaminophen ? ? al & mag hydroxide rprrbsxetas-umjntnyomqzrzsf-jkfydjlta-nystatin ??? albuterol ??? dextrose ??? dextrose OR [...] questions or changes Angelo Vance MD 05/22/2021 GER ED * Nalini Clayton MD - 05/22/2021 8:04 AM CST [facility] - Cardiology [facility] Progress Note [...] found for: T3FREE No results found for: C0PJIDV Meds MEDICATIONS FOR CURRENT ENCOUNTER: SCHEDULED MEDICATIONS: [...] 1545 ? ? al & mag hydroxide sdakavtukcv-xriwcdgkundsgci-affgmgwfh-nystatin (MAGIC MOUTHWASH) suspension 1-1-1-1 20 mL swish [...] with ICU team ?? Nalini Clayton MD GER ED * Silviano Huddleston NP - 05/22/2021 7:44 [...] on 04/29. He was taken to the wheelabrator operator on 04/30 where they found in-stent thrombosis [...] the ICU.? Hospital Course 04/29 Cystoscopy [place] [facility] 04/30 STEMI, wheelabrator operator -> instent thrombosis, angioplasty, IABP, transfer to [facility] 05/04/21: Increased blood clot from osorio and [...] acetaminophen ? ? al & mag hydroxide oomyfjbmndx-shawvhygfdghozy-nmvqppbtn-nystatin ??? albuterol ??? dextrose ??? dextrose OR [...] hours: I/O: Date 05/21/21699 - 05/22/2165805/22/21699 - 05/23/21 0659 Shift 3810-6852 2055-5692 24 Hour Total 1914-4700 8750-9103 24 Hour Total INTAKE P.O. 50 500 [...] COVID 19 positive (05/19) - Dexamethasone day 3 - Remdesivir day 3/5 - Aggressive pulmonary hygiene, IS, OOBTC in [...] Alexandru Porter MD at 05/29/2021 6:01 PM MANAGER ED GER ED GER ED * Yves Weinberg MD - 05/21/2021 7:23 PM CST Nephrology Progress Note Reading Nephrology SUBJECTIVE 05/21/21 Pt seen/examined. All labs reviewed. Off lasix drip. Still dyspneic. Renal fn better. Na 135. 05/20/21 Pt seen/examined. All labs and data reviewed. COVID pos. On Dex and remdisivir. On lasix drip. Na 130, Cr 1.44. 11/30 Cr 1.41 Na 130. Started on Corlanor. [...] 1545 ? ? al & mag hydroxide ptpcryzalnz-ndverfbptqijggq-leyfwkunk-nystatin (MAGIC MOUTHWASH) suspension 1-1-1-1, 20 mL, swish [...] Daily, Elena Kelly NP, 6 mg at 05/21/21 0811 ??? dextrose [...] 200 mg at 05/21/21 0810 ??? insulin glargine (LANTUS, SEMGLEE) 100 unit/mL [...] 10 Units, 10 Units, subcutaneous, Daily, Silviano Huddleston, EFREN ??? midodrine (PROAMATINE) tablet 15 mg, [...] 250 mL IVPB, 100 mg, intravenous, Q24H, Eelna Kelly NP, Last Rate: 270 mL/hr at 05/20/212315, 100 mg at 05/20/212315 ??? sodium chloride 0.9% flush 0.5-20 mL, 0.5-20 mL, intra-catheter, Q8H [facility], Rhina Granados MD, 10 mL at 05/21/21810 [...] Aortic atherosclerosis. No failure. The right IJ Altha-Radha catheter has been retracted with its tip [...] with left pleural fluid decreasing. No pneumothorax. Altha-Radha catheter remainsin place Impression: Decreasing failure, atelectasis [...] with left pleural fluid decreasing. No pneumothorax. Altha-Radha catheter remains in place Impression: Decreasing failure, [...] atelectasis with left pleural fluid. No pneumothorax. Altha-Radha catheter remains in place Impression: Decreasing failure. No pneumothorax. Electronically signed by: Deacon Cummings M.D. XR Chest 1 View - Portable - in AM Result Date: 05/07/2021 Narrative: EXAMINATION: XR CHEST 1 VIEW DATE: 05/07/2021 3:55 AM HISTORY: 60-year-old man follow-upcardiac surgery FINDINGS:Compared with study of the previous day, postsurgical changes in the heartand mediastinum with cardiomegaly are stable. Altha-Radha catheter remains in place. Left thoracostomy tube [...] Interval placement of endotracheal tube, nasogastric tube, Altha-Radha catheter, left thoracostomy tube and mediastinal drain [...] Echo (TTE) Limited Result Date: 05/07/2021 Narrative: [place] [address] Limited Echocardiogram Report Patient Name: DEEPAK ALVARADO : 1960 StudyDate: 05/07/2021 12:16:52 PM Gender: M Tech: SR Location: [id number] Ref.Provider: RHINA GRANADOS Height(Cm): 175 BSA: 2.1 [...] tamponade. Electronically Signed By: Gianni Francois MD, [facility] 2021-05-07 12:54:09 MANAGER ED Transthoracic Echo Complete W Doppler/CF Result Date: 05/02/2021 Narrative: [place] [address] Echocardiogram Report Patient Name: DEEPAK ALVARADO W : 1960 Study Date: 05/02/2021 8:50:02 AM Gender: M Tech: Location: [place] [address] Ref Provider: NALINI CLAYTONHeight(Cm): 175 BSA: 2.11 [...] Signed By: Rylee Brito DO, FACJustyna, VILMA, FASIAL 2021-05-02 14:07:25 MANAGER ED CC: CC: CC: ASSESSMENT/PLAN Hyponatremia from SIADH [...] -monitor ?? I can be reached at [phone] with any concerns. Thank you Rhina Granados MD for the consult. [facility] [employer] [phone] GER ED * Shruthi Hu COTA - 05/21/2021 3:38 PM CST Occupational Therapy NOTE / SESSION TYPE: DAILY PROGRESS / TREATMENT Patient's Name: Deepak Alvarado Age / Sex: 60 y.o. / male Room: [place] [address] [address] : 1960 Date of service: 05/21/21 TIME [...] session: Yes Completed patient handoff and notified PAUNCH TRIMMER / RN, name: TIANA, of patient's location [...] PULLOVER SHIRT. PATIENT ADHERED TO [employer]ER[employer] PRECAUTIONS [id number]% ACCURACY AND MIN VCS PRN AFTER INITIAL [...] Rich Haynes OT at 05/21/2021 4:20 PM MANAGER ED GER ED GER ED * Anibal Lara MD - 05/21/2021 12:27 [...] 0811 ? ? al & mag hydroxide lxkzucnlsfr-iujvjzxvtzyjilp-xgqlbdlgy-nystatin (MAGIC MOUTHWASH) suspension 1-1-1-1 20 mL swish [...] Daily Elena Kelly NP 6mg at 05/21/21 0811 ??? dextrose oral liquid liquid 15 g 15 g oral Q15 Min PRN Anibal Lara MD Or ??? dextrose (D10W) 10% bolus 250 mL 250 mL intravenous Q15 Min PRN nAibal Mon MD ??? docusate sodium (COLACE) capsule [...] 200 mg at 05/21/21 0810 ??? insulin glargine (LANTUS, SEMGLEE) 100 unit/mL injection 8 Units 8 Units subcutaneous QAM Abelino Leblanc MD 8 Units at 05/21/21 0811 ??? insulin [...] Q6H Rhina Granados MD 15 mg at 05/21/21 0810 ??? ondansetron (ZOFRAN) [...] Q24H Elena Kelly, EFREN 270 mL/hr at 05/20/21 2316 100 mg at 05/20/21 2316 ??? sodium chloride 0.9% flush 0.5-20 mL 0.5-20 mL intra-catheter Q8H [facility] Rhina Granados MD 10 mL at 05/21/21 0811 ??? sodium phosphate - potassium phosphate (K-PHOS NEUTRAL) tablet 250 mg 250 mg oral TID with meals Silviano Huddleston NP 250 mg at 05/21/21 1203 ??? tamsulosin (FLOMAX) extended release capsule 0.4 mg 0.4 mg oral Daily with dinner Elena Kelly NP 0.4 mg at 05/20/21 1706 ??? acetaminophen ? ? al & mag hydroxide hlwmykeyorw-dkqhwjctmzwddyp-hhbtzxsdc-nystatin ??? albuterol ??? dextrose OR dextrose ??? [...] and transurethral resection of bladder tumor at [facility] -s/p 20??Faroese three way catheter -holding Plavix -cysto 05/14 [...] MD [facility]ist 05/21/2021 12:27 PM GER ED * Ralf Tomlinson MD - 05/21/2021 11:21 AM CST Pulmonary Daily Progress Chief complaint/reason for consult: Respiratory failure. Interval History: on optiflow 75%/40L, sats mid 90s Alert Afebrile No sputum or chest pain Some delirium noted COVID positive 05/19/21 Presenting History: 60 yo man w COPD, DM, CAD/stents admitted 05/01/21 with chest pain. Had recent hematuria as well. Workup revealed an acute TX. Cath showed multi-vessel CAD. Had balloon pump [...] acetaminophen ? ? al & mag hydroxide wjwfhuqbeab-nnguuhcllmoflyr-hpvauifox-nystatin ??? albuterol ??? dextrose OR dextrose ??? glucagon ??? guaiFENesin ??? ondansetron ??? polyethylene glycol ROS Above review of system reviewed on 05/21/2021 Vitals: Vitals: 05/21/21 1000 05/21/21 1015 05/21/21 1030 05/21/21 1045 BP: 100/56 94/59 91/54 100/61 Pulse: 84 90 92 80 Resp: 25 21 27 27 Temp: TempSrc: SpO2: Weight: Height: [...] Assessment and Plan: Acute respiratory failure Acute TX w CAD s/p CABG x 4 on [...] bronchodilators Increase activity as tolerated Chart reviewed GER ED * Ellen Maynard NP - 05/21/2021 10:35 [...] Discussed with ICU team Ellen Maynard NP [facility] 05/21/2021 10:35 AM Cosigned by Nalini Clayton MD at 05/21/2021 11:34 AM MANAGER ED GER ED GER ED Associated attestation - Nalini Clayton MD - 05/21/2021 11:34 AM MANAGER ED PATIENT SEEN. AGREE WITH THE NOTE * [...] 8.6 8.8 8.4* Recent Labs Lab Units 05/18/213 05/17/21 0220 PH ART 7.45 7.50* PCO2 [...] Dispo: ICU Varsha Lee NP Cardiothoracic Surgery [facility] C: [phone] [facility] Cosigned by Rhina Granados MD at 05/21/2021 2:57 PM MANAGER ED GER ED GER ED * Angelo Vance MD - 05/21/2021 9:11 AM CST Infectious Disease Deepak Adair Lazarus Admit Date: 05/01/2021 LOS: 20 Days Clinical Course No new changes. PATIENT ABOUT THE SAME New Symptoms Positive SOB, no Cp, no nvd, no rashes Data Vitals: 05/21/21 0800 05/21/21 0815 05/21/21 0830 05/21/21 0845 BP: 110/61 105/62 115/68 105/66 Pulse: 83 90 92 83 Resp: 17 24 Temp: TempSrc: SpO2: Weight: Height: [...] acetaminophen ? ? al & mag hydroxide tvpmzycgmar-yqhtwqkymprlkai-cwbgwyeft-nystatin ??? albuterol ??? dextrose OR dextrose ??? [...] Continue supportive care Angelo Vance MD 05/21/2021 GER ED * Silviano Huddleston NP - 05/21/2021 8:00 [...] on 04/29. He was taken to the wheelabrator operator on 04/30 where they found in-stent thrombosis [...] the ICU.? Hospital Course 04/29 Cystoscopy [place] [facility] 04/30 STEMI, wheelabrator operator -> instent thrombosis, angioplasty, IABP, transfer to [facility] 05/04/21: Increased blood clot from osorio and [...] acetaminophen ? ? al & mag hydroxide bjbrjxwpcjo-reowplyquohwmoy-fimcvgirn-nystatin ??? albuterol ??? dextrose OR dextrose ??? [...] parameters for last 24 hours: I/O: Date 05/20/211899 - 05/21/2165805/21/21 0700 - 05/22/21 0659 Shift 2687-4334 24 Hour Total 8196-6031 2314-7067 24 Hour Total INTAKE P.O. 673 50 [...] Alexandru Porter MD at 05/22/2021 1:14 PM MANAGER ED GER ED GER ED * Anibal Lara MD - 05/20/2021 2:00 [...] 1624 ? ? al & mag hydroxide nwkwyoukdwg-jjcnjjufgmniwej-movrqbwky-nystatin (MAGIC MOUTHWASH) suspension 1-1-1-1 20 mL swish [...] mg 81 mg oral Daily Varsha Crowder, COLLEGE TUTOR 81 mg at 05/20/21 0848 ??? atorvastatin (LIPITOR) tablet 80 mg 80 mg oral Nightly Rhina Granados MD 80 mg at 05/19/212031 ??? dexAMETHasone (DECADRON) 4 mg/mL injection 6 mg 6 mg intravenous Daily Elena Kelly, COLLEGE TUTOR 6mg at 05/20/21 0020 ??? dextrose oral [...] LEAH Rhina Granados MD 10 mL at 05/20/21 1356 ??? tamsulosin (FLOMAX) extended release capsule 0.4 mg 0.4 mg oral Daily with dinner Elena Kelly NP 0.4 mg at 05/19/21 1638 ??? acetaminophen ? ? al & mag hydroxide hivxiowcuyy-plwzldzzgyntokv-zvyjydulu-nystatin ??? albuterol ??? dextrose OR dextrose ??? [...] and transurethral resection of bladder tumor at [facility] -s/p 20??Faroese three way catheter -holding Plavix -cysto 05/14 [...] MD [facility]ist 05/20/2021 2:00 PM GER ED * Yves Weinberg MD - 05/20/2021 12:33 PM CST Nephrology Progress Note Reading Nephrology SUBJECTIVE 05/20/21 Pt seen/examined. All labs [...] 1624 ? ? al & mag hydroxide sxvkpxvehyo-obmugbuhuylkicu-gswcbogeh-nystatin (MAGIC MOUTHWASH) suspension 1-1-1-1, 20 mL, swish [...] Nightly, Rhina Granados MD, 80 mg at 05/19/21 2032 ??? dexAMETHasone [...] IVPB, 100 mg, intravenous, Q24H, Elena Kelly, COLLEGE TUTOR ??? sodium chloride 0.9% flush 0.5-20 mL, 0.5-20 mL, intra-catheter, Q8H [facility], Rhina Granados MD, 20 mL at 05/20/21 0620 ??? tamsulosin (FLOMAX) extended release capsule 0.4 mg, 0.4 mg, oral, Daily with dinner, Elena Kelly, COLLEGE TUTOR, 0.4 mg at 05/19/21 1638 Lab/Radiology/Diagnostic Review: [...] Aortic atherosclerosis. No failure. The right IJ Altha-Radha catheter has been retracted with its tip [...] with left pleural fluid decreasing. No pneumothorax. Altha-Radha catheter remainsin place Impression: Decreasing failure, atelectasis [...] with left pleural fluid decreasing. No pneumothorax. Altha-Radha catheter remains in place Impression: Decreasing failure, [...] atelectasis with left pleural fluid. No pneumothorax. Altha-Radha catheter remains in place Impression: Decreasing failure. No pneumothorax. Electronically signed by: Deacon Cummings M.D. XR Chest 1 View - Portable - in AM Result Date: 05/07/2021 Narrative: EXAMINATION: XR CHEST 1 VIEW DATE: 05/07/2021 3:55 AM HISTORY: 60-year-old man follow-upcardiac surgery FINDINGS:Compared with study of the previous day, postsurgical changes in the heartand mediastinum with cardiomegaly are stable. Altha-Radha catheter remains in place. Left thoracostomy tube [...] Interval placement of endotracheal tube, nasogastric tube, Altha-Radha catheter, left thoracostomy tube and mediastinal drain [...] Echo (TTE) Limited Result Date: 05/07/2021 Narrative: [place] [address] Limited Echocardiogram Report Patient Name: DEEPAK ALVARADO : 1960 StudyDate: 05/07/2021 12:16:52 PM Gender: M Tech: Location: [id number] Ref.Provider: RHINA GRANADOS Height(Cm): 175 BSA: 2.1 [...] tamponade. Electronically Signed By: Gianni Francois MD, [facility] 2021-05-07 12:54:09 MANAGER ED Transthoracic Echo Complete W Doppler/CF Result Date: 05/02/2021 Narrative: [place] [address] Echocardiogram Report Patient Name: DEEPAK ALVARADO W : 1960 Study Date: 05/02/2021 8:50:02 AM Gender: M Tech: Location: [id number] Ref Provider: NALINI CLAYTONHeight(Cm): 175 BSA: 2.11 [...] Brito, , FACJustyna, VILMA, FAISAL 2021-05-02 14:07:25 MANAGER ED CC: CC: CC: ASSESSMENT/PLAN Hyponatremia from SIADH [...] -monitor ?? I can be reached at [phone] with any concerns. Thank you Rhina Granados MD for the consult. Yves Weinberg MD [employer] [phone] GER ED * Ralf Tomlinson MD - 05/20/2021 11:21 AM CST Pulmonary Daily Progress Chief complaint/reason for consult: Respiratory failure. Interval History: Noted to be COVID positive yesterday Oxygen requirements increased overnight, put on optiflow Alert Afebrile No sputum or chest pain Presenting History: 60 yo man w COPD, DM, CAD/stents admitted 05/01/21 with chest pain. Had recent hematuria as well. Workup revealed an acute TX. Cath showed multi-vessel CAD. Had balloon pump [...] acetaminophen ? ? al & mag hydroxide fuowxxwiaxl-icuzyancuhcmlyz-qhwxieerf-nystatin ??? albuterol ??? dextrose OR dextrose ??? [...] Assessment and Plan: Acute respiratory failure Acute TX w CAD s/p CABG x 4 on [...] bronchodilators Increase activity as tolerated Chart reviewed GER ED * Nasima Watson MD - 05/20/2021 10:39 [...] ~40% -balloon angioplasty was performed during acute TX and subsequently patient underwent CABG x4 on [...] -on dexamethasone and remdesivir Nasima Watson MD, [facility] 05/20/2021 10:39 AM GER ED * Rhina Granados MD - 05/20/2021 10:23 AM CST Cardiothoracic Surgery Progress Note Deepak Giovany Alvarado 1960 Hospital DAY#19 Sixteen days postop [...] Net: +200 90 cc last 24 hours, -61440 cc since admission Physical Exam Constitutional: General: [...] CHLORIDE mmol/L 94* 95* 91* CO2 mmol/L * 21* 21* BUN SERUM mg/dL 45* 47* [...] in ICU Rhina Granados MD Cardiothoracic Surgery [facility] GER ED * Lise Suggs, COLLEGE TUTOR - 05/20/2021 8:59 AM CST Urology Progress [...] ST elevation myocardial infarction (STEMI) ([facility]) 60 y.o. male with gross hematuria [...] any questions. Lise Suggs NP Urology Division [facility] Office [phone] 05/20/2021 9:00 AM Cosigned by Braulio Ortega MD at 05/21/2021 9:37 AM MANAGER ED GER ED GER ED * Silviano Huddleston NP - 05/20/2021 8:00 [...] on 04/29. He was taken to the wheelabrator operator on 04/30 where they found in-stent thrombosis [...] the ICU.? Hospital Course 04/29 Cystoscopy [place] [facility] 04/[facility] STEMI, wheelabrator operator -> instent thrombosis, angioplasty, IABP, transfer to [facility] 05/04/21: Increased blood clot from osorio and [...] acetaminophen ? ? al & mag hydroxide nmxaqhtfcqy-vskmkzayntekkjf-hbffuwcsa-nystatin ??? albuterol ??? dextrose OR dextrose ??? [...] last 24 hours: I/O: Date 05/19/21699 - 05/20/2165805/20/21699 - 05/21/21658 Shift 5018-6343 0586-8720 24 Hour Total 0061-2865 2464-4110 24 Hour Total INTAKE P.O. 600 240 [...] c/f viral pneumonia - COVID 19 positive (11/30) - Dexamethasone - Remdesivir - Aggressive pulmonary [...] Alexandru Porter MD at 05/20/2021 6:02 PM MANAGER ED GER ED GER ED * Yves Weinberg MD - 05/19/2021 11:21 PM CST Nephrology Progress Note Reading Nephrology SUBJECTIVE 05/19 Cr 1.41 Na 130. [...] 1624 ? ? al & mag hydroxide iefgztpzmhw-xyajckzxrqzrogu-lipyrvpyt-nystatin (MAGIC MOUTHWASH) suspension 1-1-1-1, 20 mL, swish [...] PRN, Caleb Toth PA, 200 mg at 05/19/211745 ??? insulin glargine (LANTUS, SEMGLEE) 100 unit/mL [...] IVPB, 200 mg, intravenous, Q24H, Elena Kelly, COLLEGE TUTOR ??? sodium chloride 0.9% flush 0.5-20 mL, 0.5-20 mL, intra-catheter, Q8H LEAH, Rhina Granados MD, 10 mL at 05/19/21 1400 ??? [...] Aortic atherosclerosis. No failure. The right IJ Altha-Radha catheter has been retracted with its tip in the distal superior vena cava. Impression: IMPRESSION: No failure. Electronically signed by: Elviar Blackman M.D. XR Chest 1 View - Portable - in AM Result Date: 05/10/2021 Narrative: EXAMINATION: XR CHEST 1 VIEW DATE: 05/10/2021 2:40 AM COMPARISON: 05/09/2021 HISTORY: 60-year-old man cardiac surgery follow-up FINDINGS:Compared with study the previous day, significant improvement. There is cardiomegaly with postsurgical changes with continued and decreasing failure. Bibasilar atelectasis with left pleural fluid decreasing. No pneumothorax. Altha-Radha catheter remainsin place Impression: Decreasing failure, atelectasis [...] with left pleural fluid decreasing. No pneumothorax. Altha-Radha catheter remains in place Impression: Decreasing failure, [...] atelectasis with left pleural fluid. No pneumothorax. Altha-Radha catheter remains in place Impression: Decreasing failure. No pneumothorax. Electronically signed by: Deacon Cummings M.D. XR Chest 1 View - Portable - in AM Result Date: 05/07/2021 Narrative: EXAMINATION: XR CHEST 1 VIEW DATE: 05/07/2021 3:55 AM HISTORY: 60-year-old man follow-upcardiac surgery FINDINGS:Compared with study of the previous day, postsurgical changes in the heartand mediastinum with cardiomegaly are stable. Altha-Radha catheter remains in place. Left thoracostomy tube [...] Interval placement of endotracheal tube, nasogastric tube, Altha-Radha catheter, left thoracostomy tube and mediastinal drain [...] Echo (TTE) Limited Result Date: 05/07/2021 Narrative: [address] [address] Limited Echocardiogram Report Patient Name: DEEPAK ALVARADO : 1960 StudyDate: 05/07/2021 12:16:52 PM Gender: M Tech: SR Location: [id number] Ref.Provider: RHINA GRANADOS Height(Cm): 175 BSA: 2.1 [...] tamponade. Electronically Signed By: Gianni Francois MD, [facility] 2021-05-07 12:54:09 MANAGER ED Transthoracic Echo Complete W Doppler/CF Result Date: 05/02/2021 Narrative: [address] [address] Echocardiogram Report Patient Name: DEEPAK ALVARADO W : 1960 Study Date: 05/02/2021 8:50:02 AM Gender: M Tech: SR Location: [id number] Ref Provider: NALINI CLAYTONHeight(Cm): 175 BSA: 2.11 [...] ventricular size. Left ventricle not well visualized. Th ere is severe hypokinesis of the mid anteroseptal, [...] Signed By: Rylee Brito DO, FACJustyna, VILMA, [facility] 2021-05-02 14:07:25 MANAGER ED CC: CC: CC: ASSESSMENT/PLAN Hyponatremia from SIADH [...] -monitor ?? I can be reached at [phone] with any concerns. Thank you Rhina Granados MD for the consult. Yves Weinberg MD [employer] [phone] GER ED * Elena Kelly NP - 05/19/2021 7:00 [...] on 04/29. He was taken to the wheelabrator operator on 04/30 where they found in-stent thrombosis [...] the ICU. Hospital Course 04/29 Cystoscopy [place] [facility] 04/[facility] STEMI, wheelabrator operator -> instent thrombosis, angioplasty, IABP, transfer to [facility] 05/04/21: Increased blood clot from osorio and [...] acetaminophen ? ? al & mag hydroxide xrbwiodbkyu-hcynenvvsiqnzrm-uhijsyrhf-nystatin ??? albuterol ??? dextrose OR dextrose ??? [...] of days: 12 I/O: Date 05/19/21699 - 05/20/2165805/20/21699 - 05/21/21 0659 Shift 1573-5571 9689-6576 24 Hour Total 8845-1930 5028-4886 24 Hour Total INTAKE P.O. 600 240 [...] - Repeat BMP in am Heme: #ABLA 07/22 surgery - No active [...] introducer (05/04) Goals of care: Full code [facility] PM Assessment and plan has been reviewed with attending, MD Sushila Kelly, [facility] [phone], [place] 1 Critical Care Medicine [facility] Cosigned by Jose Conti MD at 05/20/2021 2:40 AM MANAGER ED GER ED GER ED * Cristina Anaya, RD - 05/19/2021 5:14 [...] surgeryEvidenced by: Physical finding ?? Interventions: Communication,Encouragement,Modify supplement,[place] diet preferences within the limits of nutrition [...] Chronic obstructive pulmonary disease (CMS/HCC) ([facility]) COPD ??? Coronary artery disease ??? Diabetes mellitus ([facility]) ??? H/O heart artery stent 2006 ??? Hypertension Hypertension ??? ST elevation (STEMI) myocardial infarction ([facility]) 05/01/2021 Medications and Lab Review: Scheduled [...] medication as directed by your doctor. Call [phone] to speak with a dietitian about any diet related concerns. Recommend to follow up with outpatient nutrition counseling, ask your doctor for a referral and call [phone] to make an appointment. Nutrition Follow-Up : 05/25/[address],LD GER ED * Ralf Tomlinson MD - 05/19/2021 11:59 AM CST Pulmonary Daily Progress Chief complaint/reason for consult: Respiratory failure. Interval History: Breathing comf on 2L, improving Alert Afebrile No sputum Or chest pain Presenting History: 60 yo man w COPD, DM, CAD/stents admitted 05/01/21 with chest pain. Had recent hematuria as well. Workup revealed an acute TX. Cath showed multi-vessel CAD. Had balloon pump [...] acetaminophen ? ? al & mag hydroxide yoxykuhhmbt-hmxjsrzthuswvxq-kvarkfhfb-nystatin ??? albuterol ??? dextrose OR dextrose ??? [...] Assessment and Plan: Acute respiratory failure Acute TX w CAD s/p CABG x 4 on [...] bronchodilators Increase activity as tolerated Chart reviewed GER ED * Oscar Gonzalez MD - 05/19/2021 11:50 [...] 0932 ? ? al & mag hydroxide skmrzcnonqb-infryypfpclnmzv-pvwxxrxdo-nystatin (MAGIC MOUTHWASH) suspension 1-1-1-1 20 mL swish [...] acetaminophen ? ? al & mag hydroxide idxasdusxse-demzeswuswqioxg-hbbfepldn-nystatin ??? albuterol ??? dextrose OR dextrose ??? [...] and transurethral resection of bladder tumor at [facility] -s/p 20??Faroese three way catheter, urine still bloody -holding [...] MD [facility] Hospitalist 05/19/2021 11:50 AM GER ED GER ED * Caleb Toth PA - 05/19/2021 10:34 [...] on 04/29. He was taken to the wheelabrator operator on 04/30 where they found in-stent thrombosis [...] acetaminophen ? ? al & mag hydroxide vkeysqkbtdn-xpxgpksysozcyda-gtfifqsma-nystatin ??? albuterol ??? dextrose OR dextrose ??? [...] mmHg-11 mmHg] 10 mmHg I/O: Date 05/18/21 07 - 05/19/21 0659 05/19/21 0700 - 05/20/21 0659 Shift 1341-1156 2481-8176 24 Hour Total 9972-2374 7137-2512 24 Hour Total INTAKE P.O. 180 360 [...] HFrEF in setting of recent CABG and TX - Diuresis defered - Unable to tolerate [...] has been reviewed with attending, HEIDY Colon [phone], IRAIDA , IRAIDA 2 Critical Care Medicine [facility] Critical Care Performed by: Caleb Toth [...] plan with the patient's team and other medical/aws consultant staff. This time was in addition to and separate from care provided by other practitioners on this day of service. Cosigned by Alexandru Porter MD at 05/19/2021 6:17 PM MANAGER ED GER ED GER ED * Vernon Boone MD - 05/19/2021 8:28 [...] ~40% -balloon angioplasty was performed during acute TX and subsequently patient underwent CABG x4 on [...] function stable Add chandu Boone MD, MSN, ANP-[facility] 05/19/2021 8:28 AM GER ED * Rich Haynes OT - 05/19/2021 8:02 AM CST Occupational Therapy NOTE / SESSION TYPE: Re-evaluation Patient Name: Deepak Alvarado Date of : 1960 Age / Sex: 60 y.o. / male Room: [place] [address] [address] Admit Date: 05/01/2021 Date of Service: 05/19/21 Time In: 0950 Time Out: 1019 Primary Diagnosis: ST elevation myocardial infarction (STEMI) ([facility]) HPI: Deepak Alvarado is a 60 y.o. male who presents with retrosternal chest pain accompanied by sweating and shortness of breath. Patient underwent bladder surgery (cystoscopy, clot evacuation, and transurethral resection of bladder tumor) ??at [facility] 04/30/2021 and was discharged 05/01/2021. Patient transferred to for emergent cardiac catheterization. Patient admitted with acute anterior wall TX, s/p cardiac cath with PTCA of the [...] ST elevation (STEMI) myocardial infarction ([facility]) 05/01/2021 History reviewed. No pertinent surgical [...] session: Yes Completed patient handoff and notified PAUNCH TRIMMER / RN, name: Betty, of patient's location [...] throughout except shoulders 3-/5 Hand Dominance: Right Front Office Representative Strength (Right) good Front Office Representative Strength (Left): good Right Serial Opposition: Intact [...] (from Occupational Therapy) Active Problems Problem: OT [facility] Start Date: 05/07/21 Goal Start Date Expected End Date End Date OT [facility] [place] - [facility] 3 05/07/21 05/26/21 -- Goal Details: Patient will complete LE dressing with MOD I using compensatory strategies one time Goal Start Date Expected End Date End Date OT [facility] - Mis 5 05/07/21 05/26/21 -- Goal Details: Patient will complete chest mobilization exercises with moderate verbal cues one timeto increase tolerance for ADLs Goal Start Date Expected End Date End Date OT STG - Misc 6 05/08/21 05/26/21 -- Goal Details: Patient will adhere to sternal precautions during ADLS with minimal verbal cues one time Goal Start Date Expected End Date End Date OT STG - Mis 7 05/15/21 05/26/21 -- Goal Details: Patient will complete UE dress with set up x1 Goal Start Date Expected End Date End Date OT [facility] [place] - Mis 8 05/15/21 05/26/21 -- Goal Details: Patient will complete transfers to bed/toilet/chair with SBA one time using least restrictive device Reviewed By Devonte Ward RN 05/17/21 0047 Devonte Ward RN 05/11/21 0408 Devonte Ward RN 05/10/21 0257 If this is the last note, consider this the discharge summary Rich Haynes OT 05/19/21 GER ED * Angie Davies RRT - 05/19/2021 1:35 AM CST Spoke with RN Deandre re: Patient desaturations. His oximiter has been reading in the 80s throughout the evening. COLLEGE TUTOR Elena wanted to try patient on BiPap to resolve issue. ?? When I went in the room, pulse ox was not in place. Placed probe on ear; patient saturating 96% with good waveform. ?? BiPap is in the room in case we need it, but it is my belief that he is simply circulating poorly after his surgery. Discussed with COLLEGE TUTOR and RN and they are amenable to this. ?? Will continue to monitor. GER ED * Yves Weinberg MD - 05/18/2021 8:46 PM CST Nephrology Progress Note Reading Nephrology SUBJECTIVE 05/19 Cr 1.6 Na 130. [...] Pulse: 93 93 90 92 Resp: 18 Temp: TempSrc: SpO2: Weight: Height: Intake/Output Summary [...] PRN, Eleonora Duarte, EFREN, 650 mg at 05/18/21 1059 ? ? al & mag hydroxide ggivwnvexgw-ewuceijogphgdmo-vyhrimynj-nystatin (MAGIC MOUTHWASH) suspension 1-1-1-1, 20 mL, swish & spit, Q4H PRN, Elena Kelly, EFREN ??? albumin 5 % bottle - ADS [...] mL, 250 mL, intravenous, Q15 Min PRN, Anibla Lara MD ??? docusate sodium (COLACE) capsule 100 mg, 100 mg, oral, BID, 100 mg at 05/18/21 0851 OR [DISCONTINUED] docusate (COLACE) 10 mg/mL oral liquid 100 mg, 100 mg, feeding tube, BID, Rhina Granados MD, 100 mg at 05/05/21 0842 ??? enoxaparin (LOVENOX) syringe 40 mg, 40 mg, subcutaneous, Daily-2099, Rhina Granados MD, 40 mg at 05/18/212005 [...] tablet 40 mEq, 40 mEq, oral, BID, RayMoreno MD, 40 mEq at 05/18/212005 ??? QUEtiapine (SEROquel) tablet 25 mg, 25 mg, oral, Nightly, Rhina Granados MD, 25 mg at 05/18/212005 ??? sodium chloride 0.9% flush 0.5-20 mL, 0.5-20 mL, intra-catheter, Q8H LEAH, Rhina Granados MD, 10 mL at 05/18/21 0507 ??? tamsulosin (FLOMAX) extended release capsule 0.4 mg, 0.4 mg, oral, Daily with dinner, Elena Kelly NP, 0.4 mg at 05/18/21 1715 Lab/Radiology/Diagnostic Review: [...] Aortic atherosclerosis. No failure. The right IJ Altha-Radha catheter has been retracted with its tip [...] with left pleural fluid decreasing. No pneumothorax. Altha-Radha catheter remainsin place Impression: Decreasing failure, atelectasis [...] with left pleural fluid decreasing. No pneumothorax. Altha-Radha catheter remains in place Impression: Decreasing failure, [...] atelectasis with left pleural fluid. No pneumothorax. Altha-Radha catheter remains in place Impression: Decreasing failure. No pneumothorax. Electronically signed by: Deacon Cummings M.D. XR Chest 1 View - Portable - in AM Result Date: 05/07/2021 Narrative: EXAMINATION: XR CHEST 1 VIEW DATE: 05/07/2021 3:55 AM HISTORY: 60-year-old man follow-upcardiac surgery FINDINGS:Compared with study of the previous day, postsurgical changes in the heartand mediastinum with cardiomegaly are stable. Altha-Radha catheter remains in place. Left thoracostomy tube [...] Interval placement of endotracheal tube, nasogastric tube, Altha-Radha catheter, left thoracostomy tube and mediastinal drain [...] Echo (TTE) Limited Result Date: 05/07/2021 Narrative: [place] [address] Limited Echocardiogram Report Patient Name: DEEPAK ALVARADO : 1960 StudyDate: 05/07/2021 12:16:52 PM Gender: M Tech: Location: [place] [address] Ref.Provider: RHINA GRANADOS Height(Cm): 175 BSA: 2.1 [...] tamponade. Electronically Signed By: Gianni Francois MD, [facility] :54:09 MANAGER ED Transthoracic Echo Complete W Doppler/CF Result Date: 05/02/2021 Narrative: [place] [address] Echocardiogram Report Patient Name: DEEPAK ALVARADO W : 1960 Study Date: 05/02/2021 8:50:02 AM Gender: M Tech: Location: [place] [address] Ref Provider: NALINI CLAYTONHeight(Cm): 175 BSA: 2.11 [...] Brito, , FACC, VILMA, FAISAL 2021-05-02 14:07:25 MANAGER ED CC: CC: CC: ASSESSMENT/PLAN Hyponatremia from SIADH [...] -monitor ?? I can be reached at [phone] with any concerns. Thank you Rhina Granados MD for the consult. Yves Weinberg MD [employer] [phone] GER ED * Elena Kelly NP - 05/18/2021 7:00 [...] on 04/29. He was taken to the wheelabrator operator on 04/30 where they found in-stent thrombosis [...] the ICU. Hospital Course 04/29 Cystoscopy at [facility] 04/30 STEMI, wheelabrator operator -> instent thrombosis, angioplasty, IABP, transfer to [facility] 05/04/21: Increased blood clot from osorio and [...] acetaminophen ? ? al & mag hydroxide uvdqykenrtf-otvfkzlxahbkdnm-euxxnyihh-nystatin ??? albuterol ??? dextrose OR dextrose ??? [...] mmHg-22 mmHg] 10 mmHg I/O: Date 05/18/21 07 - 05/19/21 0659 05/19/21 0700 - 05/20/21 0659 Shift 3702-9742 0069-2758 24 Hour Total 0364-2052 9740-7374 24 Hour Total INTAKE P.O. 180 360 540 I.V.(mL/kg) 22(0.3) 225(2.8) 247(3.1) IV Piggyback 250 250 Shift Total(mL/kg) 452(5.7) 585(7.4) 1037(13.1) OUTPUT Urine(mL/kg/hr) 200(0.2) 50 250 Shift Total(mL/kg) 200(2.5) 50(0.6) 250(3.2) NET 252 986 707 Weight (kg) 79.1 79 79 79 79 [...] introducer (05/04) Goals of care: [place] [facility] [place] and plan has been reviewed with attending, MD Sushila Kelly, [facility]- [phone], IRA[place] 1 Critical Care Medicine [facility] [place] [facility] Cosigned by Jose Conti MD at 05/19/2021 6:26 AM MANAGER ED GER ED GER ED * Laly Lopes MD - 05/18/2021 2:19 [...] I.V.:595] Out: 2295 [Urine:2295] -1350 for 24, -55974 for stay Physical Exam HENT: Mouth/Throat: Mouth: [...] to floor Laly Lopes MD Cardiothoracic Surgery [facility] Cosigned by Rhina Granados MD at 05/19/2021 10:12 AM MANAGER ED GER ED GER ED GER ED * Oscar Gonzalez MD - 05/18/2021 11:02 [...] 1059 ? ? al & mag hydroxide ddxquqlbvmq-bpxqsublmdatglf-evvbasrci-nystatin (MAGIC MOUTHWASH) suspension 1-1-1-1 20 mL swish [...] acetaminophen ? ? al & mag hydroxide zuyrmxfopsx-qubfihzfwhmouqi-gxtcoskwr-nystatin ??? albuterol ??? dextrose OR dextrose ??? [...] and transurethral resection of bladder tumor at [facility] -s/p 20??Faroese three way catheter, urine still bloody -holding [...] MD [facility] Hospitalist 05/18/2021 11:02 AM GER ED * Caleb Toth PA - 05/18/2021 10:31 [...] on 04/29. He was taken to the wheelabrator operator on 04/30 where they found in-stent thrombosis [...] acetaminophen ? ? al & mag hydroxide tdkprfsascm-icwifsdgucpybpv-pkvwikotn-nystatin ??? albuterol ??? dextrose OR dextrose ??? [...] mmHg-22 mmHg] 10 mmHg I/O: Date 05/17/21 0700 - 05/18/21 0659 05/18/21 0700 - 05/19/21 0659 Shift 4951-8050 2934-1366 24 Hour Total 6168-9938 0155-5439 24 Hour Total INTAKE P.O. 4213 961 5268 180 180 I.V.(mL/kg) 450(5.7) 145(1.8) 595(7.5) IV [...] HFrEF in setting of recent CABG and TX - Diuresis - Unable to tolerate afterload [...] plan has been reviewed with attending, HEIDY oClon [phone], IRAIDA , IRAIDA 2 Critical Care Medicine [facility] Cosigned by Alexandru Porter MD at 05/19/2021 6:17 PM MANAGER ED GER ED GER ED * Lester Batista MD - 05/18/2021 10:13 AM CST Cardiology Inpatient Progress Note [facility] SUBJECTIVE: Back on low-dose of norepinephrine due to hypertension has mild sinus tachycardia Complains of feeling fatigue and tired became dizzy on getting up no chest pain oxygen requirement is down OBJECTIVE: Vitals: 05/18/21 0950 05/18/21 0955 05/18/21 1000 05/18/21 1005 BP: 91/69 93/57 Pulse: 114 111 110 108 Resp: 17 23 15 26 Temp: TempSrc: SpO2: Weight: Height: General: Comfortable [...] ~40% -balloon angioplasty was performed during acute TX and subsequently patient underwent CABG x4 on 05/04/2021 - ischemic cardiomyopathy EF 35-40% on 05/09/2021 2. Hypotension blood pressure remains on the lower side - patient was on midodrine now norepinephrine has been resumed 3. Diabetes -stable on insulin per primary team 4. COPD and respiratory failure was transferred back to the ICU on 1128: -stable without any acute issues oxygen requirement [...] low BP remains unclear. Lester Batista MD, [facility], [facility], [facility] [employer] [facility] [phone] GER ED * Fernando-Marylu Moreno, PT - 05/18/2021 9:06 AM CST Physical Therapy Re-EVALUATION PATIENT'S NAME:Deepak Alvarado :1960 AGE:60 y.o. TIME IN: 09:25 TIME OUT:09:57 CURRENT DIAGNOSIS AND HOSPITAL COURSE: Deepak Alvarado??is a 60 y.o.??male??who presents with retrosternal chest pain accompanied by sweating and shortness of breath. Patient underwent bladder surgery (cystoscopy, clot evacuation, and transurethral resection of bladder tumor) ??at [facility] 04/30/2021 and was discharged 05/01/2021. Patient transferred to for emergent cardiac catheterization. Patient admitted with acute anterior wall TX, s/p cardiac cath with PTCA of the [...] wearing hospital gown, slipper socks, peripheral IV, library clerical assistant, central line, sternal incision with steristrips, no [...] F supported Dynamic standing balance: F- supported [facility] 6 CLICK Basic Mobility - 6 Click [...] note, please consider this the discharge summary. GER ED * Abelino Leblanc MD - 05/18/2021 8:50 [...] follow Abelino Leblanc MD 05/18/2021 9:14 AM GER ED * Alejandro Pratt MD - 05/18/2021 8:26 [...] hematuria as well. Workup revealed an acute TX. Cath showed multi-vessel CAD. Had balloon pump [...] 0-2 mcg/kg/min, Last Rate: 0.01 mcg/kg/min (05/18/21 042) PRN Meds:.??? acetaminophen ? ? al & mag hydroxide eosgsixuovr-epbakybdkoyfoks-xrxhzqixa-nystatin ??? albuterol ??? dextrose ??? dextrose OR dextrose ??? glucagon ??? insulin regular ??? ondansetron ??? polyethylene glycol ROS Above review of system reviewed on 05/18/2021 Vitals: Vitals: 05/18/21 0515 05/18/21 0530 05/18/21 0545 05/18/21 0600 BP: 107/65 Pulse: 98 100 101 103 Resp: 16 24 25 22 Temp: TempSrc: SpO2: 93% 90% 95% [...] Assessment and Plan: Acute respiratory failure Acute TX w CAD s/p CABG x 4 on 05/04/21, past hx multiple stents Cardiogenic shock Cardiomyopathy EF 40% V fib Hx COPD Anemia Infiltrates: edema v pna, tracheal aspirate w yeast Hematuria s/p cystoscopy/fulguration ?? Recs: Oxygen support, wean as able Incentive spirometry Diurese as able abx coverage for pna: Zosyn, completed Scheduled bronchodilators Increase activity as tolerated Chart reviewed GER ED * Deirdre Conley, OT - 05/18/2021 6:37 AM CST Occupational Therapy 05/18/21 0785 General Session Type Other (comment) (NO OT PROVIDED. NO OT CHARGE.) OT Missed Visit Reason Other (comment) (HOLD OT.) PATIENT ON HOLD FOR OCCUPATIONAL THERAPY DUE TO TRANSFER TO ICU ON 05/17/2021. WILL REQUIRE NEW ORDERS FOR OT RE-EVALUATION WHEN MEDICALLY APPROPRIATE Deirdre Conley, OT 05/18/21 6:39 AM GER ED * Angie Davies RRT - 05/17/2021 9:16 PM CST Spoke w DEEPIKA Carrera re: Deepak's breathing. He seems to have increasing O2 requirements, currently on 5-6L HFNC satting in upper 80s. Patient exhibits w fast shallow breathing, minimal air movement upon auscultation, despite increased WOB. Recommended stat CXR. RN currently consulting critical care team. GER ED * Elena Kelly NP - 05/17/2021 7:00 [...] on 04/29. He was taken to the wheelabrator operator on 04/30 where they found in-stent thrombosis [...] the ICU. Hospital Course 04/29 Cystoscopy at [facility] 04/[facility] STEMI, wheelabrator operator -> instent thrombosis, angioplasty, IABP, transfer to [facility] 05/04/21: Increased blood clot from osorio and [...] furosemide, 10 mg/hr, Last Rate: 10 mg/hr (05/17/211823) insulin regular, 0-30 Units/hr, Last Rate: 0.5 Units/hr (05/18/21 020) norepinephrine, 0-2 mcg/kg/min, Last Rate: 0.02 mcg/kg/min (05/18/21 011) sodium chloride 0.9%, PRN Medications: ??? acetaminophen ? ? al & mag hydroxide kzxxvtmducc-sbhbejvkkhnnxes-rzcgifywj-nystatin ??? albuterol ??? dextrose ??? dextrose OR [...] mmHg-2 mmHg] 2 mmHg I/O: Date 05/17/21 07 - 05/18/21 0659 05/18/21 07 - 05/19/21 0659 Shift 3347-8627 4525-1642 24 Hour Total 8377-7322 0870-6027 24 Hour Total INTAKE P.O. 0034 790 1904 I.V.(mL/kg) 450(5.7) 95(1.2) 545(6.9) Shift Total(mL/kg) 1890(23.9) [...] Urology following - Flomax started Heme: #ABLA 2/2 surgery - H/H 11.3/33.8 - No active [...] been reviewed with attending, MD Sushila Kelly, [facility] [phone], [place] 1 Critical Care Medicine [facility] ICU standards of care: Restraints: N/A Physical Therapy/Activity: PT Ordered/ To chair TID Access: RIJ Introducer Other: Goals of care: Full code Community AM Assessment and plan has been reviewed with attending, Dr. German Kelly, COLLEGE TUTOR [phone], IRAIDA , IRAIDA 2 Critical Care Medicine [facility] Cosigned by Jose Conti MD at 05/18/2021 6:21 AM MANAGER ED GER ED GER ED * Sixto Fish MD - 05/17/2021 5:41 [...] Position: Pulse: 91 79 94 97 Resp: 28 Temp: TempSrc: SpO2: 94% 90% 91% [...] from tomorrow am Sixto Hurtado MD 05/17/2021 GER ED GER ED * Yves Weinberg MD - 05/17/2021 1:46 PM CST Nephrology Progress Note Reading Nephrology SUBJECTIVE 05/17 Transferred to ICU for [...] 0940 ? ? al & mag hydroxide ulbmqxqdlfj-yfbbtldudndhdek-anrtlsppd-nystatin (MAGIC MOUTHWASH) suspension 1-1-1-1, 20 mL, swish [...] Nightly, Rhina Granados MD, 80 mg at 05/16/21 2033 ??? dextrose (D10W) 10% bolus 1-500 mL, 1-500 mL, intravenous, PRN, Sixto Fish MD ??? dextrose oral liquid liquid 15 g, 15 g, oral, Q15 Min PRN OR dextrose (D10W) 10% bolus 250mL, 250 mL, intravenous, Q15 Min PRN, Anibal [...] (2 mg/mL) infusion, 10 mg/hr, intravenous, Continuous, Laly Lopes MD, Last Rate: 5 mL/hr at 05/17/21 [...] Aortic atherosclerosis. No failure. The right IJ Altha-Radha catheter has been retracted with its tip [...] with left pleural fluid decreasing. No pneumothorax. Altha-Radha catheter remainsin place Impression: Decreasing failure, atelectasis [...] with left pleural fluid decreasing. No pneumothorax. Altha-Radha catheter remains in place Impression: Decreasing failure, [...] atelectasis with left pleural fluid. No pneumothorax. Altha-Radha catheter remains in place Impression: Decreasing failure. No pneumothorax. Electronically signed by: Deacon Cummings M.D. XR Chest 1 View - Portable - in AM Result Date: 05/07/2021 Narrative: EXAMINATION: XR CHEST 1 VIEW DATE: 05/07/2021 3:55 AM HISTORY: 60-year-old man follow-upcardiac surgery FINDINGS:Compared with study of the previous day, postsurgical changes in the heartand mediastinum with cardiomegaly are stable. Altha-Radha catheter remains in place. Left thoracostomy tube [...] Interval placement of endotracheal tube, nasogastric tube, Altha-Radha catheter, left thoracostomy tube and mediastinal drain [...] Echo (TTE) Limited Result Date: 05/07/2021 Narrative: [address] [address] Limited Echocardiogram Report Patient Name: DEEPAK ALVARADO : 1960 StudyDate: 05/07/2021 12:16:52 PM Gender: M Tech: Location: [place] [address] Ref.Provider: RHINA GRANADOS Height(Cm): 175 BSA: 2.1 [...] tamponade. Electronically Signed By: Gianni Francois MD, [facility] :54:09 MANAGER ED Transthoracic Echo Complete W Doppler/CF Result Date: 05/02/2021 Narrative: [place] [address] Echocardiogram Report Patient Name: DEEPAK ALVARADO W : 1960 Study Date: 05/02/2021 8:50:02 AM Gender: M Tech: Location: [address] Provider: NALINI CLAYTONHeight(Cm): 175 BSA: 2.11 Weight(Kg): [...] Brito DO, FACJustyna, VILMA, FAISAL 2021-05-02 14:07:25 MANAGER ED CC: CC: CC: ASSESSMENT/PLAN Hyponatremia from SIADH [...] -monitor ?? I can be reached at [phone] with any concerns. Thank you Rhina Granados MD for the consult. Yves Weinberg MD [employer] [phone] GER ED * Vernon Boone MD - 05/17/2021 10:55 [...] ~40% -balloon angioplasty was performed during acute TX and subsequently patient underwent CABG x4 on [...] and Dr Whiting. Vernon Boone MD, MSN, ANP-[facility] 05/17/2021 10:55 AM GER ED * Anibal Lara MD - 05/17/2021 10:45 [...] 0940 ? ? al & mag hydroxide ulebydtigfl-qarqwzxnpnosbkl-msuusdcuj-nystatin (MAGIC MOUTHWASH) suspension 1-1-1-1 20 mL swish [...] LEAH Rhina Granados MD 10 mL at 05/16/212034 furosemide, 10 mg/hr, Last Rate: 10 mg/hr (05/17/21 0300) norepinephrine, 0-2 mcg/kg/min, Last Rate: 0.054 mcg/kg/min (05/17/21 0645) ??? acetaminophen ? ? al & mag hydroxide pfyjvdrrlad-cmqyjiktmllpvxp-ypbpcllqf-nystatin ??? albuterol ??? dextrose OR dextrose ??? [...] and transurethral resection of bladder tumor at [facility] -s/p ??Faroese three way catheter, urine still bloody -holding [...] MD [facility] Hospitalist 05/17/2021 10:45 AM GER ED * Laly Lopes MD - 05/17/2021 9:09 AM CST Cardiothoracic Surgery Progress Note Deepak Alvarado 1960 Hospital DAY#16 10 Days Post-Op s/p: Procedures: * Coronary artery bypass grafting x4, placement of left QUINN to the LAD, saphenous vein graft to thediagonal artery and obtuse marginal in a sequential fashion, saphenous vein graft to the PDA- [facility] Subjective: Transferred to ICU overnight for fluid [...] I.V.:190] Out: 2937 [Urine:2937] -1350 for 24, -93923 for stay Physical Exam HENT: Mouth/Throat: Mouth: [...] Sternum covered with silver Saph sites steristipped LANDMEN Neurological: General: No focal deficit present. Mental [...] Dispo: CVU. Laly Lopes MD Cardiothoracic Surgery [facility] Cosigned by Moreno Whiting MD at 05/17/2021 10:43 AM MANAGER ED GER ED GER ED * Caleb Toth PA - 05/17/2021 8:04 [...] on 04/29. He was taken to the wheelabrator operator on 04/30 where they found in-stent thrombosis [...] acetaminophen ? ? al & mag hydroxide miugpmwqafq-ezcqdqdahdirltf-bholfyzfq-nystatin ??? albuterol ??? dextrose OR dextrose ??? [...] parameters for last 24 hours: I/O: Date 05/16/21699 - 05/17/21 0659 05/17/21699 - 05/18/21 0659 Shift 3334-65061858 24 Hour Total 1672-5881 8248-7634 24 Hour Total INTAKE P.O. 704 40 4880 I.V.(mL/kg) 190(2.4) 190(2.4) Shift Total(mL/kg) 998(12.7) 280(3.5) 1278(16.2) OUTPUT Urine(mL/kg/hr) 1437(1.5) 1500(1.6) 2937(1.5) Shift Total(mL/kg) 1437(18.3) 1500(19) 2937(37.2) NET -549 -6681 -0088 Weight (kg) 78.7 79 79 79 79 [...] HFrEF in setting of recent CABG and TX - Diuresis - Unable to tolerate afterload [...] has been reviewed with attending, HEIDY Colon [phone], [place] , IRAIDA 2 Critical Care Medicine [facility] in [facility] Cosigned by Alexandru Porter MD at 05/17/2021 6:10 PM MANAGER ED GER ED GER ED * Alejandro Pratt MD - 05/17/2021 6:13 [...] hematuria as well. Workup revealed an acute TX. Cath showed multi-vessel CAD. Had balloon pump [...] Meds:.acetaminophen ? ? al & mag hydroxide bzubaktvvto-evgtqzsbjlmlbik-zdyqckull-nystatin ??? albuterol ??? dextrose OR dextrose ??? [...] -- Recent Labs Lab Units 05/17/21 0333 05/17/2122005/17/21 02005/16/21 07505/16/21 0542 05/15/21 0730 05/15/21 0533 SODIUM mmol/L [...] interval not displayed. Recent Labs Lab Units 05/17/21219 PH ART 7.50* PCO2 ART mmHg 27* [...] Assessment and Plan: Acute respiratory failure Acute TX w CAD s/p CABG x 4 on 05/04/21, past hx multiple stents Cardiogenic shock Cardiomyopathy EF 40% V fib Hx COPD Anemia Infiltrates: edema v pna, tracheal aspirate w yeast Hematuria s/p cystoscopy/fulguration ?? Recs: Oxygen support Incentive spirometry Diurese as able abx coverage for pna: d 8 Zosyn Scheduled bronchodilators Increase activity Chart reviewed GER ED * Ailyn Hsu RRT - 05/17/2021 2:55 AM CST This was the 2nd Rapid Response for this patient. The patient was not oxygenating well was placed on non-rebreather mask on 15lpm and was still not doing well with oxygenation. The patient was transferred to the ICU for further evaluation. All safety protocols were followed during the rapid. GER ED * Sixto Fish MD - 05/16/2021 1:20 [...] continue to follow Sixto Hurtado MD 05/16/2021 GER ED * Anibal Lara MD - 05/16/2021 12:49 [...] Lying Pulse: 97 93 99 98 Resp: 20 Temp: 36.6 ??C (97.9 ??F) 37.1 [...] mg 650 mg oral Q6H PRN Eleonora Daurte NP 650 mg at 05/15/21 1816 ? ? al & mag hydroxide qktnlvwcptd-mohnntxkzfunnwg-vozhojfro-nystatin (MAGIC MOUTHWASH) suspension 1-1-1-1 20 mL swish [...] Nightly Rihna Granados MD 80 mg at 05/14/218 ??? [...] subcutaneous Daily-2100 Rhina Granados MD 40 mg at107/15/204 ??? furosemide (LASIX) 10 mg/mL injection 40 mg 40 mg intravenous TID Laly Lopes MD ??? glucagon injection 1 mg 1 mg intramuscular Q30 Min PRN Anibal Lara MD ??? guaiFENesin ER (MUCINEX) extended release tablet 600 mg 600 mg oral BID Tiana Spence NP 600 mg at 05/16/21 0909 ??? haloperidol (HALDOL) injection 2 mg 2 mg intramuscular Q8H PRN Varsha Crowder NP ??? insulin glargine (LANTUS, SEMGLEE) 100 unit/mL injection 24 Units 24 Units subcutaneous NightlySixto Fish MD 24 Units at 05/15/21 2238 ??? insulin lispro (HumaLOG, ADMELOG) 100 unit/mL injection 0-10 Units 0-10 Units subcutaneous TID with meals Anibal Lara MD 4 Units at 05/15/21 1848 ??? insulin lispro (HumaLOG, ADMELOG) 100 unit/mL injection 0-5 Units 0-5 Units subcutaneous Nightly Anibal Lara MD 1 Units at 05/15/21 214 ??? insulin lispro (HumaLOG, ADMELOG) 100 unit/mL [...] chloride 0.9% 100 mL IVPB 3.375 g gbcavhwdvkdZ0M [facility] Eleonora Duarte NP 200 mL/hr at 05/16/21 [...] flush 0.5-20 mL 0.5-20 mL intra-catheter Q8H [facility] Rhina Granados MD 10 mL at 05/16/21 0535 ??? acetaminophen ? ? al & mag hydroxide roxqhqnmmlw-jvmlkiuhgcwjbqz-hzqaqrgkd-nystatin ??? albuterol ??? dextrose OR dextrose ??? [...] and transurethral resection of bladder tumor at [facility] -s/p 20??Faroese three way catheter, urine still bloody -holding [...] MD [facility] Hospitalist 05/16/2021 12:49 PM GER ED * Alejandro Pratt MD - 05/16/2021 11:20 [...] hematuria as well. Workup revealed an acute TX. Cath showed multi-vessel CAD. Had balloon pump [...] acetaminophen ? ? al & mag hydroxide cdcbiafofxc-qxvgapvujtbsdzj-jknlyqnbb-nystatin ??? albuterol ??? dextrose OR dextrose ??? [...] Assessment and Plan: Acute respiratory failure Acute TX w CAD s/p CABG x 4 on 05/04/21, past hx multiple stents Cardiogenic shock Cardiomyopathy EF 40% V fib Hx COPD Anemia Infiltrates: edema v pna, tracheal aspirate w yeast Hematuria s/p cystoscopy/fulguration ?? Recs: Oxygen as required. Wean as tolerated Incentive spirometry abx coverage for pna: d 7 Zosyn Scheduled bronchodilators Increase activity Chart reviewed GER ED * Tereza Mccullough NP - 05/16/2021 9:23 AM CST Nephrology Progress Note Reading Nephrology SUBJECTIVE 05/16 Creatinine stable and sodium [...] Intake/Output Summary (Last 24 hours) at 05/16/2021 09 Last data filed at 05/16/2021 0400 Gross [...] 1816 ? ? al & mag hydroxide aonujsoinbh-wzcltronkuwlopw-pgpibkyok-nystatin (MAGIC MOUTHWASH) suspension 1-1-1-1, 20 mL, swish [...] Daily-2100, Rhina Granados MD, 40 mg at 05/15/214 ??? furosemide (LASIX) 10 mg/mL injection 40 mg, 40 mg, intravenous, TID, Marianne, Laly Franco MD ??? glucagon injection 1 mg, 1 [...] Hurtado, Sixto Hurtado MD, 24 Units at 05/15/21 223 ??? insulin lispro (HumaLOG, ADMELOG) 100 unit/mL injection 0-10 Units, 0-10 Units, subcutaneous, TID with meals, Anibal Lara MD, 4 Units at 05/15/21 184 ??? insulin lispro (HumaLOG, ADMELOG) 100 unit/mL injection 0-5 Units, 0-5 Units, subcutaneous, Nightly, Anibal Lara MD, 1 Units at 05/15/212141 ??? insulin lispro (HumaLOG, ADMELOG) 100 unit/mL injection 10 Units, 10 Units, subcutaneous, TID with meals, Bryant Hurtado, Sixto Hurtado MD, 10 Units at 05/16/21 0912 ??? metoprolol tartrate (LOPRESSOR) immediate release tablet 12.5 mg, 12.5 mg, oral, BID, Eleonora Duarte NP, 12.5 mg at 05/16/21 0909 ??? ondansetron (ZOFRAN) injection 4 mg, 4 mg, intravenous, Q6H PRN, Rhina Granados MD ??? pantoprazole DR (PROTONIX) extended release tablet 40 mg, 40 mg, oral, Daily, Rhina Granados MD, 40 mg at 05/16/21908 ??? piperacillin-tazobactam (ZOSYN) 3.375 g in sodium [...] LEAH, Rhina Granados MD, 10 mL at 05/16/21 [...] Aortic atherosclerosis. No failure. The right IJ Altha-Radha catheter has been retracted with its tip [...] with left pleural fluid decreasing. No pneumothorax. Altha-Radha catheter remainsin place Impression: Decreasing failure, atelectasis [...] with left pleural fluid decreasing. No pneumothorax. Altha-Radha catheter remains in place Impression: Decreasing failure, [...] atelectasis with left pleural fluid. No pneumothorax. Altha-Radha catheter remains in place Impression: Decreasing failure. No pneumothorax. Electronically signed by: Deacon Cummings M.D. XR Chest 1 View - Portable - in AM Result Date: 05/07/2021 Narrative: EXAMINATION: XR CHEST 1 VIEW DATE: 05/07/2021 3:55 AM HISTORY: 60-year-old man follow-upcardiac surgery FINDINGS:Compared with study of the previous day, postsurgical changes in the heartand mediastinum with cardiomegaly are stable. Altha-Radha catheter remains in place. Left thoracostomy tube [...] Interval placement of endotracheal tube, nasogastric tube, Altha-Radha catheter, left thoracostomy tube and mediastinal drain [...] Echo (TTE) Limited Result Date: 05/07/2021 Narrative: [address] [address] Limited Echocardiogram Report Patient Name: DEEPAK ALVARADO : 1960 StudyDate: 05/07/2021 12:16:52 PM Gender: M Tech: Location: [place] [address] Ref.Provider: RHINA GRANADOS Height(Cm): 175 BSA: 2.1 [...] tamponade. Electronically Signed By: Gianni Francois MD, [facility] 2021-05-07 12:54:09 MANAGER ED Transthoracic Echo Complete W Doppler/CF Result Date: 05/02/2021 Narrative: [place] [address] Echocardiogram Report Patient Name: DEEPAK ALVARADO W : 1960 Study Date: 05/02/2021 8:50:02 AM Gender: M Tech: Location: [address] Provider: NALINI CLAYTONHeight(Cm): 175 BSA: 2.11 Weight(Kg): [...] Brito DO, FACJustyna, [place], FAISAL 2021-05-02 14:07:25 MANAGER ED CC: CC: CC: ASSESSMENT/PLAN Hyponatremia from SIADH [...] -monitor ?? I can be reached at [phone] with any concerns. Thank you Rhina Granados MD for the consult. Tereza Mccullough, [employer] [phone] Cosigned by Ashley Fox MD at 05/22/2021 11:26 AM MANAGER ED GER ED GER ED * Laly Lopes MD - 05/16/2021 9:09 AM CST Cardiothoracic Surgery Progress Note Deepak Alvarado 1960 Hospital DAY#15 10 Days Post-Op s/p: Procedures: * Coronary artery bypass grafting x4, placement of left QUINN to the LAD, saphenous vein graft to thediagonal artery and obtuse marginal in a sequential fashion, saphenous vein graft to the PDA- [place] Subjective: Osorio removed yesterday per , has [...] [P.O.:837] Out: 1275 [Urine:1275] -1350 for 24, -49969 for stay Physical Exam HENT: Mouth/Throat: Mouth: [...] returning home. Laly Lopes MD Cardiothoracic Surgery [facility] Cosigned by Moreno Whiting MD at 05/17/2021 10:43 AM MANAGER ED GER ED GER ED * Cristina Serrano NP - 05/16/2021 7:38 AM CST Daily Progress SUBJECTIVE: Mr. Alvarado is resting quietly. No new complaints, but RN from shift leader states that he has been retaining urine, and has been straight cathed once overnight. He continues to have some retention. OBJECTIVE: Vitals: 05/15/21 2330 05/16/21 0000 05/16/21 0400 05/16/21 0729 BP: (!) 88/55 91/57 102/64 BP Location: Left arm Right arm Right arm Patient Position: Lying Lying Lying Pulse: 98 87 92 99 Resp: 22 Temp: 36.9 ??C (98.4 ??F) 36.3 ??C [...] chloride 0.9% 100 mL IVPB 3.375 g [id number] LEAH ??? polyethylene glycol (MIRALAX) packet 17 g 17 g oral BID ??? potassium chloride ER (KLOR-CON) extended release tablet 20 mEq 20 mEq oral BID ??? QUEtiapine (SEROquel) tablet 25 mg 25 mg oral Daily ??? QUEtiapine (SEROquel) tablet 50 mg 50 mg oral Nightly ??? sodium chloride 0.9% flush 0.5-20 mL 0.5-20 mL intra-catheter Q8H [facility] LABS: Recent Labs Lab Units 05/16/21 0542 [...] ~40% -balloon angioplasty was performed during acute TX and subsequently patient underwent CABG x4 on [...] K >/= 4.0 Cristina Serrano NP, MSN, ANP-[facility] 05/16/2021 7:38 AM GER ED GER ED * Yves Weinberg MD - 05/15/2021 4:36 PM CST Nephrology Progress Note Reading Nephrology SUBJECTIVE 05/15/21 Doing fair. Osorio out. [...] 2231 ? ? al & mag hydroxide feppwfltspq-mumfqatiboajjrx-ntbngpqkp-nystatin (MAGIC MOUTHWASH) suspension 1-1-1-1, 20 mL, swish [...] Hurtado, Sixto Hurtado MD, 24 Units at 05/14/21 2218 ??? [...] Units, 10 Units, subcutaneous, TID with meals, Bryant Hurtado, Sixto Hurtado MD, 1 Units at 05/15/21 1424 ??? [...] 50 mg, 50 mg, oral, Nightly, Varsha Crowder, COLLEGE TUTOR, 50 mg at 05/14/219 ??? sodium chloride 0.9% flush 0.5-20 mL, 0.5-20 mL, intra-catheter, Q8H [facility], Rhina Granados MD, 10 mL at 05/15/21 [...] Aortic atherosclerosis. No failure. The right IJ Altha-Radha catheter has been retracted with its tip [...] with left pleural fluid decreasing. No pneumothorax. Altha-Radha catheter remainsin place Impression: Decreasing failure, atelectasis [...] with left pleural fluid decreasing. No pneumothorax. Altha-Radha catheter remains in place Impression: Decreasing failure, [...] atelectasis with left pleural fluid. No pneumothorax. Altha-Radha catheter remains in place Impression: Decreasing failure. No pneumothorax. Electronically signed by: Deacon Cummings M.D. XR Chest 1 View - Portable - in AM Result Date: 05/07/2021 Narrative: EXAMINATION: XR CHEST 1 VIEW DATE: 05/07/2021 3:55 AM HISTORY: 60-year-old man follow-upcardiac surgery FINDINGS:Compared with study of the previous day, postsurgical changes in the heartand mediastinum with cardiomegaly are stable. Altha-Radha catheter remains in place. Left thoracostomy tube [...] Interval placement of endotracheal tube, nasogastric tube, Altha-Radha catheter, left thoracostomy tube and mediastinal drain [...] Echo (TTE) Limited Result Date: 05/07/2021 Narrative: [place] [address] Limited Echocardiogram Report Patient Name: DEEPAK ALVARADO : 1960 StudyDate: 05/07/2021 12:16:52 PM Gender: M Tech: Location: [place] [address] Ref.Provider: RHINA GRANADOS Height(Cm): 175 BSA: 2.1 [...] tamponade. Electronically Signed By: Gianni Francois MD, [facility] :54:09 MANAGER ED Transthoracic Echo Complete W Doppler/CF Result Date: 05/02/2021 Narrative: [place] [address] Echocardiogram Report Patient Name: DEEPAK ALVARADO W : 1960 Study Date: 05/02/2021 8:50:02 AM Gender: M Tech: Location: [id number] Ref Provider: NALINI CLAYTONHeight(Cm): 175 BSA: 2.11 [...] valve. Electronically Signed By: Rylee Brito DO, [facility], [place], [facility] 2021-05-02 14:07:25 MANAGER ED CC: CC: CC: ASSESSMENT/PLAN Hyponatremia from SIADH [...] -monitor ?? I can be reached at [phone] with any concerns. Thank you Rhina Granados MD for the consult. Yves Weinberg MD [employer] [phone] GER ED * Ellen Shore, PRAVEENA - 05/15/2021 4:10 PM CST Physical Therapy Unavailable, with OTR for OT session. Ellen Shore PTA 05/15/21 4:11 PM GER ED * Abril Lala, OT - 05/15/2021 3:43 PM CST Occupational Therapy NOTE / SESSION TYPE: Weekly Progress / Interim Patient Name: Deepak Alvarado Date of : 1960 Age / Sex: 60 y.o. / male Room: [place] [address] Admit Date: 05/01/2021 Date of Service: 05/15/21 [...] session: Yes Completed patient handoff and notified PAUNCH TRIMMER / RN, name: Charo, of patient's location [...] phrase after me and remember it. Padilla Flaquito [address] [place] [address]. Number of trialto [id number] 3 1 3 0 3. About what [...] I asked you to remember. Padilla Huddleston [address] [place] [address]. [] Padilla [] Flaquito [] [][facility] [][place] 5 (b) 2 10 A weighted error score of 9 or greater indicates a need for further assessment. Total Weighted Error Score = 23 (a) Scoring 0 = No errors, 1 = 1 error, 2 = 2 or more errors, (b) An answer of either [facility] or [employer] is acceptable. UE ROM / Strength / Coordination: (A)ROM - Right: WNL except shoulders tested to 90 degrees due to sternal prec. Strength - Right: 4/5 except shoulders not assessed (A)ROM - Left: : WNL except shoulders tested to 90 degrees due to sternal prec. Strength - Left: 4/5 except shoulders not assessed Front Office Representative Strength (Right) Good Front Office Representative Strength (Left): Good Right Serial Opposition: Intact [...] PLAN: OT Discharge Recommendations this date: Location: [facility] facility Supervision: 24 hour Follow-up therapy recommendations: Skilled OT in [facility] Frequency of therapy: 3-5 times / [...] Active Problems Problem: OT Misc Start Date: 05/07/21 Goal Start Date Expected End Date End Date OT [facility] - Misc 3 05/07/21 05/22/21 -- Goal Details: Patient will complete LE dressing with moderate assistance and using adaptive equipment PRN one time Goal Start Date Expected End Date End Date OT [facility] [place] - Mis 5 05/07/21 05/22/21 -- Goal Details: Patient will complete chest mobilization exercises with moderate verbal cues one time Goal Start Date Expected End Date End Date OT [facility] [place] - Mis 6 05/07/21 05/14/21 -- Goal Details: Patient will adhere to sternal precautions during ADLS with minimal verbal cues one time Goal Start Date Expected End Date End Date OT [facility] [place] - Mis 7 05/15/21 05/22/21 -- Goal Details: Patient will complete UE dress with set up x1 Goal Start Date Expected End Date End Date OT [facility] [place] - [facility] 8 05/15/21 05/22/21 -- Goal Details: Patient will complete transfers to bed/toilet/chair with spv with ww x1 If this is the last note, consider this the discharge summary Abril Lala OT 05/15/21 GER ED * Anibal Lara MD - 05/15/2021 12:50 [...] 83 87 93 Resp: 18 18 18 Temp: 36.4 ??C (97.6 [...] 2231 ? ? al & mag hydroxide zjwesdpcexp-alarzllpcqmnscd-ocmbmmjul-nystatin (MAGIC MOUTHWASH) suspension 1-1-1-1 20 mL swish [...] subcutaneous Daily-2100 Rhina Granados MD 40 mg at107/10/20 2141 ??? furosemide (LASIX) 10 mg/mL injection [...] subcutaneous NightlySixto Fish MD 24 Units at 05/14/21 2218 ??? insulin [...] Sixto Fish MD 10 Units at 05/14/21 1712 ??? [...] chloride 0.9% 100 mL IVPB 3.375 g qogopukyunoH9Y LEAH Eleonora Duarte NP 200 mL/hr at 05/15/21 [...] Nightly Varsha Crowder NP 50 mg at 209 ??? sodium chloride 0.9% flush 0.5-20 mL 0.5-20 mL intra-catheter Q8H [facility] Rhina Granados MD 10 mL at 05/15/21 0654 ??? acetaminophen ? ? al & mag hydroxide tpuqxnrfpsx-xkwjypnjpeijgwk-xiqspiszx-nystatin ??? albuterol ??? dextrose OR dextrose ??? [...] and transurethral resection of bladder tumor at [facility] -s/p 20??Faroese three way catheter, urine still bloody -holding [...] MD [facility] 05/15/2021 12:50 PM GER ED * Sixto Fish MD - 05/15/2021 12:43 [...] continue to follow Sixto Hurtado MD 05/15/2021 GER ED * Alejandro Pratt MD - 05/15/2021 10:52 [...] hematuria as well. Workup revealed an acute TX. Cath showed multi-vessel CAD. Had balloon pump [...] acetaminophen ? ? al & mag hydroxide wssthwhzyau-rpraabpekasrwxb-qyolgbhgz-nystatin ??? albuterol ??? dextrose OR dextrose ??? [...] Assessment and Plan: Acute respiratory failure Acute TX w CAD s/p CABG x 4 on 05/04/21, past hx multiple stents Cardiogenic shock Cardiomyopathy EF 40% V fib Hx COPD Anemia Infiltrates: edema v pna, tracheal aspirate w yeast Hematuria s/p cystoscopy/fulguration ?? Recs: Oxygen as required. Wean as tolerated Incentive spirometry abx coverage for pna Scheduled bronchodilators Chart reviewed GER ED * Monica Morales, RD - 05/15/2021 10:22 [...] Chronic obstructive pulmonary disease (CMS/HCC) ([facility]) COPD ??? Coronary artery disease ??? Diabetes mellitus (HCC) ??? H/O heart artery stent 2006 ??? Hypertension Hypertension ??? ST elevation (STEMI) myocardial infarction ([facility]) 05/01/2021 Medications and Lab Review: Scheduled [...] sodium chloride 0.9%, 0.5-20 mL, intra-catheter, Q8H [facility] Continuous Infusions: Sodium Date Value Ref Range [...] medication as directed by your doctor. Call [phone] to speak with a dietitian about any diet related concerns. Recommend to follow up with outpatient nutrition counseling, ask your doctor for a referral and call [phone] to make an appointment. Nutrition Follow-Up : 05/19/[address],LD GER ED * Robinson Paris MD - 05/15/2021 10:15 AM CST Urology Progress Note Mr. Alvarado is a 60 yo man who is POD 1 from cystoscopy and fulguration of bleeding sites. He is s/p arecent TURBT by another urologist at [facility] in [place] and his post op course was complicated [...] fails the voiding trial by 3 pm. GER ED * Tiana Spence NP - 05/15/2021 9:29 AM CST Daily Progress SUBJECTIVE: Mr. Alvarado is resting in bed, NAD Wet COLLEGE TUTOR cough, encouraged IS Mild incisional discomfort. Denies [...] chloride 0.9% 100 mL IVPB 3.375 g bxqlddwycqbB0F LEAH ??? polyethylene glycol (MIRALAX) packet 17 [...] which was fulgurated and hemostasis obtained. Twenty-[address] Faro[address] Osorio catheter ASSESSMENT/PLAN: 1. CAD status post CABG for STEMI -Cardiac cath on 05/01 with 40% distal LM; 100% prox LAD; 90% prox Cx; 50% prox and distal RCA -Left ventriculogram:??Moderate blanka-apical hypokinesis; echo on 05/02 with EF ~40% -balloon angioplasty was performed during acute TX and subsequently patient underwent CABG x4 on [...] keep K >/= 4.0 Tiana Spence NP [facility] 05/15/2021 9:29 AM GER ED * Laly Lopes MD - 05/15/2021 9:22 AM CST Cardiothoracic Surgery Progress Note Deepak Alvarado 1960 Hospital DAY#14 10 Days Post-Op s/p: Procedures: * Coronary artery bypass grafting x4, placement of left QUINN to the LAD, saphenous vein graft to thediagonal artery and obtuse marginal in a sequential fashion, saphenous vein [facility] Subjective: Cysto done yesterday with area of [...] I.V.:500] Out: 1175 [Urine:1175] -1350 for 24, -67625 for stay Physical Exam HENT: Mouth/Throat: Mouth: [...] Sternum covered with silver Saph sites steristipped LANDMEN Neurological: General: No focal deficit present. Mental [...] graft to the PDA 05/04/[address] rGanados Neuro: Ax0x4, Continue Seroquel as scheduled. CVS: [...] [facility] Cosigned by Moreno Whiting MD at 05/17/2021 10:43 AM MANAGER ED GER ED GER ED * Mirella Godwin MD - 05/14/2021 2:37 [...] No n/v Pain under control Scheduled Meds [MAR Hold] aspirin, 81 mg, oral, Daily [AUG Hold] atorvastatin, 80 mg, oral, Nightly [Held by Provider] clopidogreL, 75 mg, oral, Daily [MAR Hold] docusate sodium, 100 mg, oral, BID [Held by Provider] enoxaparin, 40 mg, subcutaneous, Daily-2100 [AUG Hold] furosemide, 20 mg, intravenous, BID DIURETIC [MAR Hold] guaiFENesin ER, 600 mg, oral, BID [AUG Hold] insulin glargine, 24 Units, subcutaneous, Nightly [MAR Hold] insulin lispro, 0-10 Units, subcutaneous, TID with meals [AUG Hold] insulin lispro, 0-5 Units, subcutaneous, Nightly [MAR Hold] insulin lispro, 10 Units, subcutaneous, TID with meals [MAR Hold] metoprolol tartrate, 12.5 mg, oral, BID [MAR Hold] pantoprazole DR, 40 mg, oral, Daily [AUG Hold] piperacillin-tazobactam, 3.375 g, intravenous, Q6H LEAH [MAR Hold] polyethylene glycol, 17 g, oral, BID [MAR Hold] potassium chloride ER, 20 mEq, oral, BID [AUG Hold] QUEtiapine, 25 mg, oral, Daily [AUG Hold] QUEtiapine, 50 mg, oral, Nightly [MAR Hold] sodium chloride 0.9%, 0.5-20 mL, intra-catheter, Q8H LEAH ??? [AUG Hold] acetaminophen ? ? [AUG Hold] al & mag hydroxide nuwtdvdmprb-xdrioqsnyuklceq-noukjsevp-nystatin ??? [AUG Hold] albuterol ??? [AUG Hold] dextrose OR [AUG Hold] dextrose ??? diphenhydrAMINE ??? fentaNYL ??? [AUG Hold] glucagon ??? [AUG Hold] haloperidol ??? meperidine ??? naloxone ??? [AUG Hold] ondansetron ??? ondansetron Data Vitals: 05/14/21 1340 05/14/21 1345 05/14/21 1350 05/14/21 1355 BP: (!) 81/50 (!) 80/57 BP Location: Patient Position: Pulse: 82 84 81 84 Resp: 11 15 24 Temp: TempSrc: SpO2: (!) [...] and transurethral resection of bladder tumor at [facility] -s/p ??Faroese three way catheter, urine still bloody -holding [...] plan Mirella Godwin MD 05/14/2021 2:37 PM GER ED * Eleonora Duarte NP - 05/14/2021 10:41 [...] - Out: 1350 [Urine:1350] -1350 for 24, -16815 for stay Physical Exam HENT: Mouth/Throat: Mouth: [...] Sternum covered with silver Saph sites steristipped LANDMEN Neurological: General: No focal deficit present. Mental [...] [facility] GER ED GER ED * Alejandro Pratt MD - 05/14/2021 10:38 [...] hematuria as well. Workup revealed an acute TX. Cath showed multi-vessel CAD. Had balloon pump [...] acetaminophen ? ? al & mag hydroxide ksatqtgbmvz-vgvxtnnzzvfxeua-dzahgpyqy-nystatin ??? albuterol ??? dextrose OR dextrose ??? [...] Assessment and Plan: Acute respiratory failure Acute TX w CAD s/p CABG x 4 on 05/04/21, past hx multiple stents Cardiogenic shock Cardiomyopathy EF 40% V fib Hx COPD Anemia Infiltrates: edema v pna, tracheal aspirate w yeast hematuria ?? Recs: Oxygen as required. Wean as tolerated Incentive spirometry abx coverage for pna Scheduled bronchodilators Chart reviewed GER ED * Braulio Ortega MD - 05/14/2021 9:53 [...] 0940 ? ? al & mag hydroxide xqzgtgwiitf-ctubxooaperchxf-ghppzyumv-nystatin (MAGIC MOUTHWASH) suspension 1-1-1-1 20 mL swish [...] Rhina Granados MD 100 mg at 05/14/21 0909 ??? [Held by Provider] enoxaparin (LOVENOX) syringe 40 mg 40 mg subcutaneous Daily-2100 Rhina Granados MD 40 mg at 05/10/212140 ??? furosemide (LASIX) [...] 10 Units 10 Units subcutaneous TID withmeals Hurtado Hurtado, Supraja Hurtado, MD ??? metoprolol XL (TOPROL-XL) extended release tablet 12.5 mg 12.5 mg oral Daily Lester Batista MD12.5 mg at 05/14/21908 ??? ondansetron (ZOFRAN) injection 4 mg 4 mg intravenous Q6H PRN Rhina Granados MD ??? pantoprazole DR (PROTONIX) extended release tablet 40 mg 40 mg oral Daily Rhina Granados MD40 mg at 05/14/2110 ??? piperacillin-tazobactam (ZOSYN) 3.375 g in sodium chloride 0.9% 100 mL IVPB 3.375 g fsbbptfpiraA5Z [facility] Eleonora Duarte NP 200 mL/hr at 05/14/21910 3.375 g at 05/14/21910 ??? polyethylene glycol (MIRALAX) packet 17 g 17 g oral BID Rhina Granados MD 17 g at 05/14/2112 ??? potassium chloride ER (KLOR-CON) extended release [...] flush 0.5-20 mL 0.5-20 mL intra-catheter Q8H [facility] Rhina Granados MD 10 mL at 05/14/21 0645 [facility]iology [address] [address] [address] [address] Abdomen Pelvis WO Contrast Status: [...] History of ?bladder tumor, had tumor resection [place] and clot evacuation Earlier this month. ?? Patient has evidence of clots in the bladder. Hb stable. Off bloodf thinners currently. For cysto and clot evacuation and fulguration. ?? Risks and complications including bleeding, blood transfusion, bladder perforation, uti, sepsis,catheter problems explained.Patient wants to proceed. Braulio Ortega MD Urology Division [employer] [facility] Office [phone] 05/14/2021 9:54 AM GER ED * Tereza Mccullough NP - 05/14/2021 9:25 AM CST Nephrology Progress Note Reading Nephrology SUBJECTIVE 05/14 Sodium 127 yesterday and lasix restarted by ; pt. ditrevoring. today's labs pending.Osorio draining reddish-brown urine; to [...] oral, Q6H PRN, Eleonora Duarte, EFREN, 650 mgat 05/13/212021 ? ? al & mag hydroxide pdglmqfwgde-vysvuuuagtkqntg-jtltvwtra-nystatin (MAGIC MOUTHWASH) suspension 1-1-1-1, 20 mL, swish [...] tablet 600 mg, 600 mg, oral, BID, Taina Spence NP, 600 mg at 05/14/21 09 ??? haloperidol (HALDOL) injection 2 mg, 2 [...] oral, Daily, ShamimLester MD, 12.5 mg at 05/14/21908 ??? ondansetron [...] 200 mL/hr at 05/14/21910, 3.375 g at 11/25/21 0911 ??? polyethylene glycol (MIRALAX) packet 17 g, 17 g, oral, BID, Rhina Granados MD, 17 g at 05/14/21 0912 ??? potassium chloride ER (KLOR-CON) extended release tablet 20 mEq, 20 mEq, oral, BID, Eleonora Duarte NP, 20 mEq at 05/14/21 0909 ??? QUEtiapine (SEROquel) tablet 25 mg, 25 mg, oral, Daily, Varsha Crowder NP, 25 mg at 05/14/21 0909 ??? QUEtiapine (SEROquel) tablet 50 mg, 50 mg, oral, Nightly, Varsha Crowder NP, 50 mg at 05/13/212013 ??? sodium chloride 0.9% flush 0.5-20 mL, 0.5-20 mL, intra-catheter, Q8H [facility], Rhina Granados MD, 10 mL at 05/14/21 [...] Aortic atherosclerosis. No failure. The right IJ Altha-Radha catheter has been retracted with its tip [...] with left pleural fluid decreasing. No pneumothorax. Altha-Radha catheter remainsin place Impression: Decreasing failure, atelectasis [...] with left pleural fluid decreasing. No pneumothorax. Altha-Radha catheter remains in place Impression: Decreasing failure, [...] atelectasis with left pleural fluid. No pneumothorax. Altha-Radha catheter remains in place Impression: Decreasing failure. No pneumothorax. Electronically signed by: Deacon Cummings M.D. XR Chest 1 View - Portable - in AM Result Date: 05/07/2021 Narrative: EXAMINATION: XR CHEST 1 VIEW DATE: 05/07/2021 3:55 AM HISTORY: 60-year-old man follow-upcardiac surgery FINDINGS:Compared with study of the previous day, postsurgical changes in the heartand mediastinum with cardiomegaly are stable. Altha-Radha catheter remains in place. Left thoracostomy tube [...] Interval placement of endotracheal tube, nasogastric tube, Altha-Radha catheter, left thoracostomy tube and mediastinal drain [...] Echo (TTE) Limited Result Date: 05/07/2021 Narrative: [place] [address] Limited Echocardiogram Report Patient Name: DEEPAK ALVARADO : 1960 StudyDate: 05/07/2021 12:16:52 PM Gender: M Tech: Location: [place] [address] Ref.Provider: RHINA GRANADOS Height(Cm): 175 BSA: 2.1 [...] tamponade. Electronically Signed By: Gianni Francois MD, [facility] :54:09 MANAGER ED Transthoracic Echo Complete W Doppler/CF Result Date: 05/02/2021 Narrative: [place] [address] Echocardiogram Report Patient Name: DEEPAK ALVARADO W : 1960 Study Date: 05/02/2021 8:50:02 AM Gender: M Tech: Location: [id number] Ref Provider: NALINI CLAYTONHeight(Cm): 175 BSA: 2.11 Weight(Kg): 92 Heart Rate: 89 BP: 102/52 Quality: Good Order Provider: NALINI CLAYTNO PROCEDURES: Echocardiographic Report: Transthoracic echocardiogram with complete [...] Brito DO, GRETCHEN, FAISAL ESPARZA 2021-05-02 14:07:25 MANAGER ED CC: CC: CC: ASSESSMENT/PLAN Hyponatremia from SIADH [...] -monitor ?? I can be reached at [phone] with any concerns. Thank you Rhina Granados MD for the consult. Tereza Mccullough NP [employer] [phone] Cosigned by Ashley Fox MD at 05/22/2021 11:26 AM MANAGER ED GER ED GER ED * Cristina Serrano NP - 05/14/2021 6:55 AM CST Daily Progress SUBJECTIVE: Mr. Alvarado is resting quietly, wants all the procedures done so he can go home. Evidently did not have the cystoscopy done yesterday and is to have it done today. Still with hematuria, piotr in. OBJECTIVE: Vitals: 05/13/21 1933 05/14/21 0005 [...] chloride 0.9% 100 mL IVPB 3.375 g [id number] LEAH ??? polyethylene glycol (MIRALAX) packet 17 [...] ~40% -balloon angioplasty was performed during acute TX and subsequently patient underwent CABG x4 on [...] today -osorio intact Cristina Serrano NP, MSN, ANP-[facility] 05/14/2021 6:55 AM GER ED * Yves Weinberg MD - 05/13/2021 9:18 PM CST Nephrology Progress Note Reading Nephrology SUBJECTIVE Doing fair. Some flank pain [...] Height: Intake/Output Summary (Last 24 hours) at 05/13/20218 Last data filed at 05/13/2021 1825 Gross [...] PRN, Eleonora Duarte, EFREN, 650 mg at 05/13/212021 ? ? al & mag hydroxide qqchsogjdju-qqrwctfumojdevx-bzucuywpi-nystatin (MAGIC MOUTHWASH) suspension 1-1-1-1, 20 mL, swish [...] 600 mg, 600 mg, oral, BID, Tiana Sepnce NP, 600 mg at 05/13/21 0936 ??? [...] Daily, Lester Batista MD, 12.5 mg at 05/13/21 0937 ??? ondansetron (ZOFRAN) injection 4 mg, 4 mg, intravenous, Q6H PRN, Rhina Granados MD ??? pantoprazole DR (PROTONIX) extended release tablet 40 mg, 40 mg, oral, Daily, Rhina Granados MD, 40 mg at 05/13/21 0936 ??? piperacillin-tazobactam (ZOSYN) 3.375 g in sodium chloride 0.9% 100 mL IVPB, 3.375 g, intravenous, Q6H LE[facility], Eleonora Duarte NP, Last Rate: 200 mL/hr at 05/13/21 1724, 3.375 g at 05/13/21 172 ??? polyethylene glycol (MIRALAX) packet 17 g, 17 g, oral, BID, Rhina Granados MD, 17 g at 05/13/21 0936 ??? potassium chloride ER (KLOR-CON) extended release [...] Aortic atherosclerosis. No failure. The right IJ Altha-Radha catheter has been retracted with its tip [...] with left pleural fluid decreasing. No pneumothorax. Altha-Radha catheter remainsin place Impression: Decreasing failure, atelectasis [...] with left pleural fluid decreasing. No pneumothorax. Altha-Radha catheter remains in place Impression: Decreasing failure, [...] atelectasis with left pleural fluid. No pneumothorax. Altha-Radha catheter remains in place Impression: Decreasing failure. No pneumothorax. Electronically signed by: Deacon Cummings M.D. XR Chest 1 View - Portable - in AM Result Date: 05/07/2021 Narrative: EXAMINATION: XR CHEST 1 VIEW DATE: 05/07/2021 3:55 AM HISTORY: 60-year-old man follow-upcardiac surgery FINDINGS:Compared with study of the previous day, postsurgical changes in the heartand mediastinum with cardiomegaly are stable. Altha-Radha catheter remains in place. Left thoracostomy tube [...] Interval placement of endotracheal tube, nasogastric tube, Altha-Radha catheter, left thoracostomy tube and mediastinal drain [...] with mild failure suspected. Electronically signed by: Decaon Cummings M.D. XR Chest 1 Vw Portable [...] Echo (TTE) Limited Result Date: 05/07/2021 Narrative: [place] [address] Limited Echocardiogram Report Patient Name: DEEPAK ALVARADO : 1960 StudyDate: 05/07/2021 12:16:52 PM Gender: M Tech: Location: [id number] Ref.Provider: RHINA GRANADOS Height(Cm): 175 BSA: 2.1 [...] tamponade. Electronically Signed By: Gianni Francois MD, [facility] 2021-05-07 12:54:09 MANAGER ED Transthoracic Echo Complete W Doppler/CF Result Date: 05/02/2021 Narrative: [place] [address] Echocardiogram Report Patient Name: DEEPAK ALVARADO W : 1960 Study Date: 05/02/2021 8:50:02 AM Gender: M Tech: Location: [id number] Ref Provider: NALINI CLAYTONHeight(Cm): 175 BSA: 2.11 [...] Brito DO, FACJustyna, VILMA, FAISAL 2021-05-02 14:07:25 MANAGER ED CC: CC: CC: ASSESSMENT/PLAN Hyponatremia from SIADH [...] -monitor ?? I can be reached at [phone] with any concerns. Thank you Rhina Granados MD for the consult. Yves Weinberg MD [employer] [phone] GER ED * Anibal Lara MD - 05/13/2021 1:43 [...] Lying Pulse: 71 [phone] 91 91 Resp: Temp: 36.9 ??C (98.5 ??F) 36.7 ??C [...] 2223 ? ? al & mag hydroxide tgjtinopuli-vjebrnpcdgsgccm-sgkzvvazx-nystatin (MAGIC MOUTHWASH) suspension 1-1-1-1 20 mL swish [...] Nightly Rhina Granados MD 80 mg at 204 ??? [Held by Provider] clopidogreL (PLAVIX) tablet [...] chloride 0.9% 100 mL IVPB 3.375 g [id number] [facility] Eleonora Duarte NP 200 mL/hr at 05/13/21606 [...] flush 0.5-20 mL 0.5-20 mL intra-catheter Q8H [facility] Rhina Granados MD 10 mL at 05/13/21606 ??? acetaminophen ? ? al & mag hydroxide hwgjnvtxvdj-nxsgpwgggeizblm-dcxyiduuv-nystatin ??? albuterol ??? dextrose OR dextrose ??? [...] and transurethral resection of bladder tumor at [facility] -s/p 20??Faroese three way catheter, urine still bloody -holding [...] MD [facility] 05/13/2021 1:43 PM GER ED * Braulio Ortega MD - 05/13/2021 12:32 [...] ? [AUG Hold] al & mag hydroxide seburcdtmxe-nuloihzvkxvdadn-mainsahgy-nystatin (MAGIC MOUTHWASH) suspension 1-1-1-1 20 mL swish [...] NP 81 mg at 05/13/21 0937 ??? [AUG Hold] atorvastatin (LIPITOR) tablet 80 mg 80 [...] oral BID Rhina Granados MD 100 mgat 05/13/2136 ??? [Held by Provider] enoxaparin (LOVENOX) syringe 40 mg 40 mg subcutaneous Daily-2100 Rhina Granados MD 40 mg at 05/10/212140 ??? [AUG Hold] glucagon injection 1 mg 1 mg intramuscular Q30 Min PRN Anibal Mon MD ??? [AUG Hold] guaiFENesin ER (MUCINEX) extended release tablet 600 mg 600 mg oral BID Tiana Spence NP 600 mg at 05/13/21935 ??? [AUG Hold] haloperidol (HALDOL) injection 2 mg 2 mg intramuscular Q8H PRN Varsha Crowder NP ??? [AUG Hold] insulin glargine (LANTUS, SEMGLEE) 100 unit/mL injection 20 Units 0.25 Units/kg subcutaneous Nightly Anibal Lara MD 20 Units at 05/12/212 ??? [AUG Hold] insulin lispro (HumaLOG, ADMELOG) 100 unit/mL injection 0-10 Units 0-10 Units subcutaneous TID with meals Anibal Lara MD 4 Units at 05/13/21 0938 ??? [AUG Hold] insulin lispro (HumaLOG, ADMELOG) 100 unit/mL injection 0-5 Units 0-5 Units subcutaneous Nightly Anibal Lara MD 1 Units at 05/12/210 ??? [AUG Hold] insulin lispro (HumaLOG, ADMELOG) [...] intravenous Q6H PRN Rhina Granados MD ??? [MAR Hold] pantoprazole DR (PROTONIX) extended release tablet 40 mg 40 mg oral Daily Rhina Granados MD 40 mg at 05/13/21 0936 ??? [MAR Hold] piperacillin-tazobactam (ZOSYN) 3.375 g in sodium chloride 0.9% 100 mL IVPB 3.375 g intravenous Q6H [facility] Eleonora Duarte COLLEGE TUTOR 200 mL/hr at 05/13/21 0607 3.375 g at 05/13/21 06 ??? [AUG Hold] polyethylene glycol (MIRALAX) packet 17 g 17 g oral BID Rhina Granados MD 17 g at 05/13/21935 ??? [MAR Hold] potassium chloride ER (KLOR-CON) extended release tablet 20 mEq 20 mEq oral BID Eleonora Duarte NP 20 mEq at 05/13/21 0936 ??? [MAR Hold] QUEtiapine (SEROquel) tablet 25 mg 25 mg oral Daily Varsha Crowder, COLLEGE TUTOR 25 mg at107/13/20 0937 ??? [MAR Hold] QUEtiapine (SEROquel) tablet 50 mg 50 mg oral Nightly Varsha Crowder COLLEGE TUTOR 50 mg at 05/12/21 2205 ??? [MAR Hold] sodium chloride 0.9% flush 0.5-20 mL 0.5-20 mL intra-catheter Q8H [facility] NabilA. Granados MD 10 mL at 05/13/21606 ??? sodium chloride 0.9% flush 0.5-20 mL [...] CT scan. Braulio Ortega MD Urology Division [facility] Office [phone] 05/13/2021 12:33 PM GER ED * Ellen Shore PTA - 05/13/2021 11:48 AM CST Physical Therapy Unavailable, gone from room for procedure. Ellen Shore PTA 05/13/21 11:49 AM GER ED * Shruthi Hu COTA - 05/13/2021 11:14 AM CST Occupational Therapy NO THERAPY OR OT CHARGES GIVEN THIS MORNING D/T PATIENT JUST RECENTLY TAKEN TO OPERATING ROOM. THERAPIST WILL ADDRESS SESSION LATER IN AFTERNOON IF TIME PERMITTING AND/OR PER AVAILABILITY/ APPROPRIATENESS. CAITIE Tinsley 05/13/21 11:15 AM GER ED GER ED * Varsha Crowder NP - 05/13/2021 10:13 AM CST Atrial and ventricular pacing wires removed without difficulty. VSS. Telemetry: NSR. No distress noted. Patient instructed to remain on bedrest for one hour and notify the nurse if shortness of breath or chest pain develops. Varsha Crowder MSN, RN, AGPCNP-C Cardiothoracic Surgery [facility] Medicine Office: GER ED * Varsha Crowder NP - 05/13/2021 10:13 [...] 2 completed shifts: In: 240 [P.O.:240] Out: 2000 [Urine:2000] Physical Exam HENT: Mouth/Throat: Mouth: Mucous [...] Sternum covered with silver Saph sites steristipped LANDMEN Neurological: General: No focal deficit present. Mental [...] the PDA 05/04/[address] Granados Neuro: Au5t0-9 today, awake. Continue Seroquel as scheduled, PRN [...] returning home Varsha Crowder NP Cardiothoracic Surgery [facility] Cosigned by Rhina Granados MD at 05/13/2021 1:17 PM MANAGER ED GER ED GER ED * Lester Batista MD - 05/13/2021 8:28 AM CST Cardiology Inpatient Progress Note [facility] SUBJECTIVE: Hematuria noted blood [...] ~40% -balloon angioplasty was performed during acute TX and subsequently patient underwent CABG x4 on [...] to undergo cystoscopy today Lester Batista MD, FACC, [facility], RPVI [employer] [facility] [phone] GER ED * August Colin MD - 05/13/2021 5:46 [...] hematuria as well. Workup revealed an acute TX. Cath showed multi-vessel CAD. Had balloon pump [...] Meds:.acetaminophen ? ? al & mag hydroxide msybmsoekve-fplzroomynorzth-kbzutzyom-nystatin ??? albuterol ??? dextrose OR dextrose ??? [...] Assessment and Plan: Acute respiratory failure Acute TX w CAD s/p CABG x 4 on 05/04/21, past hx multiple stents Cardiogenic shock Cardiomyopathy EF 40% V fib Hx COPD Anemia Infiltrates: edema v pna, tracheal aspirate w yeast ?? Recs: Oxygen as required. Wean as tolerated Incentive spirometry abx coverage for pna Scheduled bronchodilators Chart reviewed GER ED * Yves Weinberg MD - 05/12/2021 9:24 PM CST Nephrology Progress Note Reading Nephrology SUBJECTIVE Doing fair. Some flank pain [...] 1454 ? ? al & mag hydroxide hjuboojyplq-uwinwiebilyyicy-fhmxglytm-nystatin (MAGIC MOUTHWASH) suspension 1-1-1-1, 20 mL, swish & spit, Q4H PRN, Tiana Spence, EFREN, 20 mL at 05/12/21 1457 ??? albuterol [...] 600 mg, 600 mg, oral, BID, Tiana Spence, EFREN, 600 mg at 05/12/21 0939 ??? haloperidol (HALDOL) injection 2 mg, 2 mg, intramuscular, Q8H PRN, Varsha Crowder NP ??? insulin glargine (LANTUS, SEMGLEE) 100 unit/mL injection 20 Units, 0.25 Units/kg, subcutaneous,Nightly, Anibal Lara MD, 20 Units at 05/11/21 2145 ??? insulin lispro (HumaLOG, ADMELOG) 100 unit/mL injection 0-10 Units, 0-10 Units, subcutaneous, TID with meals, Anibal Lara MD, 2 Units at 05/12/21 1745 ??? insulin lispro (HumaLOG, ADMELOG) 100 unit/mL injection 0-5 Units, 0-5 Units, subcutaneous, Nightly, Anibal Lara MD ??? insulin lispro (HumaLOG, ADMELOG) 100 unit/mL injection 7 Units, 0.083 Units/kg, subcutaneous, TID with meals, Anibal Lara MD, 7 Units at 05/12/21 1744 ??? metoprolol tartrate (LOPRESSOR) immediate release tablet [...] flush 0.5-20 mL, 0.5-20 mL, intra-catheter, Q8H [facility], Rhina Granados MD, 10 mL at 05/12/21 [...] Aortic atherosclerosis. No failure. The right IJ Altha-Radha catheter has been retracted with its tip [...] with left pleural fluid decreasing. No pneumothorax. Altha-Radha catheter remainsin place Impression: Decreasing failure, atelectasis [...] with left pleural fluid decreasing. No pneumothorax. Altha-Radha catheter remains in place Impression: Decreasing failure, [...] atelectasis with left pleural fluid. No pneumothorax. Altha-Radha catheter remains in place Impression: Decreasing failure. No pneumothorax. Electronically signed by: Deacon Cummings M.D. XR Chest 1 View - Portable - in AM Result Date: 05/07/2021 Narrative: EXAMINATION: XR CHEST 1 VIEW DATE: 05/07/2021 3:55 AM HISTORY: 60-year-old man follow-upcardiac surgery FINDINGS:Compared with study of the previous day, postsurgical changes in the heartand mediastinum with cardiomegaly are stable. Altha-Radha catheter remains in place. Left thoracostomy tube [...] Interval placement of endotracheal tube, nasogastric tube, Altha-Radha catheter, left thoracostomy tube and mediastinal drain [...] Echo (TTE) Limited Result Date: 05/07/2021 Narrative: [place] [id number] Limited Echocardiogram Report Patient Name: DEEPAK ALVARADO : 1960 StudyDate: 05/07/2021 12:16:52 PM Gender: M Tech: SR Location: [id number] Ref.Provider: RHINA GRANADOS Height(Cm): 175 BSA: 2.1 [...] tamponade. Electronically Signed By: Gianni Francois MD, [facility] :54:09 MANAGER ED Transthoracic Echo Complete W Doppler/CF Result Date: 05/02/2021 Narrative: [address] [address] Echocardiogram Report Patient Name: DEEPAK ALVARADO W : 1960 Study Date: 05/02/2021 8:50:02 AM Gender: M Tech: SR Location: [id number] Ref Provider: KATYAL, ALOKHeight(Cm): 175 BSA: 2.11 [...] Brito DO, FACJustyna, VILMA, FAISAL 2021-05-02 14:07:25 MANAGER ED CC: CC: CC: ASSESSMENT/PLAN Hyponatremia from SIADH [...] -monitor ?? I can be reached at [phone] with any concerns. Thank you Rhina Granados MD for the consult. Yves Weinberg MD [employer] [phone] GER ED * Anibal Lara MD - 05/12/2021 1:53 PM CST Hospitalist Progress Note Name: Deepak Alvarado Admission Date: 05/01/2021 Today's Date: 05/12/2021 Subjective: Pt seen and examined while in the ICU, Clinical course: Overall pt condition has improved. Pt will be transferred to 9th floor, [facility] Osorio with blood urine and still on [...] NP ? ? al & mag hydroxide jxzzrwtuasj-jpxiqtpvyokupti-ayonywfar-nystatin (MAGIC MOUTHWASH) suspension 1-1-1-1 20 mL swish & spit Q4H PRN Tiana Spence NP 20 mL at 05/09/21 1815 ??? albuterol 2.5 mg /3 mL (0.083 %) nebulizer solution 2.5 mg 2.5 mg nebulization Q4H PRN (RT) Ralf Tomlinson MD ??? aspirin enteric coated tablet 81 mg 81 mg oral Daily Varsha Crowder, COLLEGE TUTOR 81 mg at 05/12/21 0940 ??? atorvastatin [...] mg 600 mg oral BID Tiana Spence COLLEGE TUTOR 600 mg at 05/12/21 0939 ??? insulin [...] chloride 0.9% 100 mL IVPB 3.375 g rxigfbmpvvhB8X [facility] Eleonora Duarte NP 200 mL/hr at 05/12/21 [...] flush 0.5-20 mL 0.5-20 mL intra-catheter Q8H [facility] Rhina Granados MD 10mL at 05/12/21 0626 ??? sodium chloride 0.9% flush 0.5-20 mL 0.5-20 mL intra-catheter PRN Robby Suárez MD acetaminophen ? ? al & mag hydroxide kntalvhsjmb-sqtdndgaenajmlo-caforuqhs-nystatin ??? albuterol ??? dextrose OR dextrose ??? [...] and transurethral resection of bladder tumor at [facility] -s/p 20??Faroese three way catheter, urine still bloody -holding Plavix and Lovenox -urology follows ?? Acute resp failure - self ext 05/05/21 -Lung infiltrates - pulm vascular congestion versus pneumonia -off Lasix due to hyponatremia, changed to Zosyn due to worsening Leukocytosis -[facility] -pulmonology follows ?? Type 2 diabetes.??- transitioned [...] MD [facility] 05/12/2021 1:53 PM GER ED * Alejandro Pratt MD - 05/12/2021 11:26 [...] hematuria as well. Workup revealed an acute TX. Cath showed multi-vessel CAD. Had balloon pump [...] sodium chloride 0.9%, 0.5-20 mL, intra-catheter, Q8H [facility] Continuous Infusions: PRN Meds:.acetaminophen ? ? al & mag hydroxide qcrryxpkesg-tuczdxritnpxvlt-hipkgoetr-nystatin ??? albuterol ??? dextrose OR dextrose ??? [...] < > 187 POC GLUCOSE MONITOR mg/dL * 196 -- < > -- < > [...] Assessment and Plan: Acute respiratory failure Acute TX w CAD s/p CABG x 4 on 05/04/21, past hx multiple stents Cardiogenic shock Cardiomyopathy EF 40% V fib Hx COPD Anemia Infiltrates: edema v pna, tracheal aspirate w yeast ?? Recs: Oxygen as required. Wean as tolerated Incentive spirometry abx coverage for pna Scheduled bronchodilators Chart reviewed GER ED * Ellen Shore PTA - 05/12/2021 11:10 AM CST Physical Therapy PT PROGRESS NOTE Deepak Alvarado 60 y.o. 1960 Past Medical History: Diagnosis Date ??? Chronic obstructive pulmonary disease (CMS/HCC) ([facility]) COPD ??? Coronary artery disease ??? Diabetes mellitus (HCC) ??? H/O heart artery stent 2006 ??? Hypertension Hypertension ??? ST elevation (STEMI) myocardial infarction (HCC) 05/01/2021 History reviewed. No pertinent surgical history. Patient Active Problem List Diagnosis ??? ST elevation myocardial infarction (STEMI) ([facility]) TIME IN: 1110 TIME OUT: 1205 SUBJECTIVE [...] established deficits and goals. DISCHARGE LOCATION RECOMMENDATIONS: HALF-WAY FACILITY If this is the last note, please consider this the discharge summary. Cosigned by Marylu Dempsey, PT at 05/12/2021 1:09 PM MANAGER ED GER ED GER ED GER ED * Lester Batista MD - 05/12/2021 10:33 AM CST Cardiology Inpatient Progress Note [facility] SUBJECTIVE: Does not have [...] ~40% -balloon angioplasty was performed during acute TX and subsequently patient underwent CABG x4 on [...] to undergo urological procedure Lester Batista MD, [facility], [place] [employer] [facility] [phone] GER ED * Varsha Crowder NP - 05/12/2021 10:00 AM CST Cardiothoracic Surgery Progress Note Deepak Alvarado 1960 Hospital DAY#11 8 Days Post-Op s/p: Procedures: * Coronary artery bypass grafting x4, placement of left QUINN to the LAD, saphenous vein graft to thediagonal artery and obtuse marginal in a sequential fashion, saphenous vein graft to the PDA- [facility] Subjective: Patient resting in chair, has wet cough. Having pain at osorio site. Was scheduled for cystoscopy this AM however became acutely confused and refused procedure. Now alert and oriented and agreeable to proceed. Discussed w/ urology COLLEGE TUTOR who will reschedule for tomorrow AM OBJECTIVE: [...] 1800 [Urine:1800] NET -1740ml for 24 hours -15819 for stay Physical Exam HENT: Mouth/Throat: Mouth: Mucous membranes are moist. Eyes: Pupils: Pupils are equal, round, and reactive to light. Cardiovascular: Rate and Rhythm: Normal rate and regular rhythm. Pulses: Normal pulses. Heart sounds: Normal heart sounds. Comments: HR Sr 89 VVI Back up 60/10/2- pw taped and [...] the PDA 05/04/[address] Granados Neuro: Qo8a8-0 now, confused overnight. Received extra dose of [...] mid week. Varsha Crowder NP Cardiothoracic Surgery [facility] Cosigned by Rhina Granados MD at 05/12/2021 3:32 PM MANAGER ED GER ED GER ED * Lise Suggs NP - 05/12/2021 9:40 [...] ST elevation myocardial infarction (STEMI) ([facility]) 60 y.o. male with gross hematuria and clot retention. Patient is scheduled for cystoscopy, ureteroscopy, clot evacuation 05/13/2021 at 12:[address] Paris. NPO after midnight. COVID-19 test isnegative. Thank you for allowing Urology to be a part of the care of your patient. Please call if you have any questions. Lise Suggs NP Urology Division [facility] Office [phone] 05/12/2021 09:40 AM Cosigned by Robinson Paris MD at 05/17/2021 7:26 PM MANAGER ED GER ED GER ED * Shruthi Hu COTA - 05/12/2021 9:37 AM CST Occupational Therapy NOTE / SESSION TYPE: DAILY PROGRESS / TREATMENT Patient's Name: Deepak Alvarado Age / Sex: 60 y.o. / male Room: [place] [address] : 1960 Date of service: 05/12/21 TIME [...] session: Yes Completed patient handoff and notified PAUNCH TRIMMER / RN, name: CALE, of patient's location [...] VCS Mobility / Transfers: Bed Mobility: MIN [id number] ASSIST FOR TRUNK COMPONENT FROM SUPINE > [...] summary CAITIE Tinsley 05/12/21 Cosigned by Deirdre Conley OT at 05/13/2021 3:42 PM MANAGER ED GER ED GER ED * Monica Morales RD - 05/12/2021 8:31 AM CST Nutrition [...] needs: ?? Total Kcal/kg Estimated Needs : 1994.83 based on Kcal/k. Type of Weight Used for Estimated Kcals: Current ?? [facility] Total Energy Needs: 1924.8 kcal using Activity Factor: 1.2 ?? [employer] Total Energy Needs + Fever Factor: 1924.8 ?? Total Protein Estimated Needs (gm): 95.8 Protein Needs Based on g/k.2 Type of Weight Used for Estimated Protein : Current. ?? Estimated Fluid Needs ?? Type of Weight Used for Estimated Fluid Needs: Current ?? Fluid Needs Based on : 1 ml/kcal ?? Total Fluid Estimated Needs: 1994.83 Objective Anthropometrics Weight: 79.8 kg (176 lb) Admission Weight : 86.2 kg Weight Change: -7.56 kg (-16.68 lbs) IBW/kg (Calculated) : 72.6 kg Height: 175.3 cm (5' 9.02 ) Weight in (lb) to have BMI = 25: 169 BMI (Calculated): 26 BMI Classification: BMI 25.0 - 29.9 Overweight 3 Day I/O Summary 05/10 1900 - 05/12 0659 In: 300 [P.O.:300] Out: 2800 [Urine:2100] Temp: 36.8 ??C (98.3 ??F) Minute Ventilation (L/min): 12.7 L/min Past Medical History: Diagnosis Date ??? Chronic obstructive pulmonary disease (CMS/HCC) ([facility]) COPD ??? Coronary artery disease ??? Diabetes mellitus ([facility]) ??? H/O heart artery stent 2006 ??? Hypertension Hypertension ??? ST elevation (STEMI) myocardial infarction ([facility]) 05/01/2021 Medications and Lab Review: Scheduled [...] sodium chloride 0.9%, 0.5-20 mL, intra-catheter, Q8H [facility] Continuous Infusions: sodium chloride 0.9%, 30 mL/hr [...] medication as directed by your doctor. Call [phone] to speak with a dietitian about any diet related concerns. Recommend to follow up with outpatient nutrition counseling, ask your doctor for a referral and call [phone] to make an appointment. Nutrition Follow-Up : 05/15/[address],LD GER ED * Narciso Mayer MD - 05/11/2021 2:53 [...] hematuria as well. Workup revealed an acute TX. Cath showed multi-vessel CAD. Had balloon pump [...] acetaminophen ? ? al & mag hydroxide mirsnvsjxdo-kdgtstotmwynvke-ttplsxqld-nystatin ??? albuterol ??? dextrose OR dextrose ??? [...] Assessment and Plan: Acute respiratory failure Acute TX w CAD s/p CABG x 4 on 05/04/21, past hx multiple stents Cardiogenic shock Cardiomyopathy EF 40% V fib Hx COPD Anemia Infiltrates: edema v pna, tracheal aspirate w yeast ?? Recs: Oxygen as required. Wean as tolerated Incentive spirometry abx coverage for pna Scheduled bronchodilators DC daily chest x-ray Chart reviewed GER ED * Anibal Lara MD - 05/11/2021 11:26 [...] NP ? ? al & mag hydroxide elvxcbxicut-eixzxtwchoxtyvt-rggdvphww-nystatin (MAGIC MOUTHWASH) suspension 1-1-1-1 20 mL swish [...] Nightly Rhina Granados MD 80 mg at 05/10/21 2142 ??? [Held [...] subcutaneous NightlyRhina Granados MD 10 Units at 05/10/217 ??? insulin lispro (HumaLOG, ADMELOG) 100 unit/mL injection 0-5 Units 0-5 Units subcutaneous Q4H Rhina Granados MD 2 Units at 05/11/21 0123 ??? metoprolol tartrate (LOPRESSOR) immediate release tablet 12.5 mg 12.5 mg oral BID Nalini Clayton MD ??? ondansetron (ZOFRAN) injection 4 mg 4 mg intravenous Q6H PRN Rhina Granados MD ??? oxyCODONE (ROXICODONE) tablet 5 mg 5 mg oral Q4H PRN Rhnia Granados MD 5 mg at 05/11/21 1123 ??? pantoprazole DR (PROTONIX) extended release tablet 40 mg 40 mg oral Daily Rhina Granados MD40 mg at 05/11/21 1124 ??? piperacillin-tazobactam (ZOSYN) 3.375 g in sodium chloride 0.9% 100 mL IVPB 3.375 g wmnobuziholQ0O Eleonora Mccall NP 200 mL/hr at 05/11/21 0506 3.375 [...] flush 0.5-20 mL 0.5-20 mL intra-catheter Q8H [facility] Rhina rGanados MD 10 mL at 05/11/21 0554 ??? acetaminophen ? ? al & mag hydroxide yezbnjxyvwo-bdusltzfsvzkvvy-lzczndbzg-nystatin ??? albuterol ??? dextrose OR dextrose ??? [...] and transurethral resection of bladder tumor at [facility] -s/p 20??Faroese three way catheter, urine still bloody -holding [...] MD [facility] Hospitalist 05/11/2021 11:26 AM GER ED * Philippe Sandee Nette, PT - 05/11/2021 10:51 AM CST Physical [...] Continued hematuria with possible plan for cystoscopy. ([id number] - too painful - returned at later [...] established deficits and goals. DISCHARGE LOCATION RECOMMENDATIONS: HALF-WAY FACILITY or inpatient rehab, but per CT surgeryNP refusing to consider either of these options, patient only wants to go home. If this is the last note, please consider this the discharge summary. GER ED * Nalini Clayton MD - 05/11/2021 10:32 AM CST [facility] - Cardiology [facility] Progress Note [...] found for: T3FREE No results found for: L4IDGMJ Pain Assessment: Sleeping Pain Interventions: Medication (See [...] chloride 0.9% 100 mL IVPB 3.375 g vpckaoerlcvT4L LEAH ??? polyethylene glycol (MIRALAX) packet 17 [...] PRN ? ? al & mag hydroxide kudpojademf-ojyizsrsiaxkkky-drixskdkh-nystatin (MAGIC MOUTHWASH) suspension 1-1-1-1 20 mL swish [...] -magic mouthwash PRN ?? Nalini Clayton MD GER ED GER ED * Yves Weinberg MD - 05/11/2021 10:22 AM CST Nephrology Progress Note Reading Nephrology SUBJECTIVE Doing fair. Some flank pain [...] 650 mg, oral, Q6H PRN, Eleonora Duarte NP ? ? al & mag hydroxide xgwwurnsijq-czghugdmbgpaojk-szywribje-nystatin (MAGIC MOUTHWASH) suspension 1-1-1-1, 20 mL, swish [...] Nightly, Rhina Granados MD, 80 mg at 05/10/212141 ??? [Held by [...] Q4H, Rhina Granados MD, 2 Units at 05/11/213 ??? ondansetron (ZOFRAN) injection 4 mg, 4 [...] 25 mg, 25 mg, oral, BID, Eleonora Duarte, COLLEGE TUTOR, 25 mg at 05/10/21 2142 ??? sodium chloride 0.9% flush 0.5-20 mL, 0.5-20 mL, intra-catheter, Q8H LEAHDarwin Nabil A., MD, 10 mL at 05/11/21 [...] Aortic atherosclerosis. No failure. The right IJ Altha-Radha catheter has been retracted with its tip [...] with left pleural fluid decreasing. No pneumothorax. Altha-Radha catheter remainsin place Impression: Decreasing failure, atelectasis [...] with left pleural fluid decreasing. No pneumothorax. Altha-Radha catheter remains in place Impression: Decreasing failure, [...] atelectasis with left pleural fluid. No pneumothorax. Altha-Radha catheter remains in place Impression: Decreasing failure. No pneumothorax. Electronically signed by: Deacon Cummings M.D. XR Chest 1 View - Portable - in AM Result Date: 05/07/2021 Narrative: EXAMINATION: XR CHEST 1 VIEW DATE: 05/07/2021 3:55 AM HISTORY: 60-year-old man follow-upcardiac surgery FINDINGS:Compared with study of the previous day, postsurgical changes in the heartand mediastinum with cardiomegaly are stable. Altha-Radha catheter remains in place. Left thoracostomy tube [...] pneumothorax. Impression: Increasing failure. Electronically signed by: Decaon Cummings M.D. XR Chest 1 Vw Portable Result Date: 05/05/2021 Narrative: EXAMINATION: XR CHEST 1 VIEW DATE: 05/04/2021 8:40 PM HISTORY: 60-year-old man coronary artery bypass follow-up FINDINGS:Compared with the study of earlier the same day, postsurgical changes now evident within the heart and mediastinum with cardiomegaly. Interval placement of endotracheal tube, nasogastric tube, Altha-Radha catheter, left thoracostomy tube and mediastinal drain [...] Echo (TTE) Limited Result Date: 05/07/2021 Narrative: [place] [address] Limited Echocardiogram Report Patient Name: DEEPAK ALVARADO : 1960 StudyDate: 05/07/2021 12:16:52 PM Gender: M Tech: Location: [place] [address] Ref.Provider: RHINA GRANADOS Height(Cm): 175 BSA: 2.1 [...] tamponade. Electronically Signed By: Gianni Francois MD, [facility] :54:09 MANAGER ED Transthoracic Echo Complete W Doppler/CF Result Date: 05/02/2021 Narrative: [place] [address] Echocardiogram Report Patient Name: DEEPAK ALVARADO W : 1960 Study Date: 05/02/2021 8:50:02 AM Gender: M Tech: Location: [place] [address] Ref Provider: NALINI CLAYTONHeight(Cm): 175 BSA: 2.11 [...] valve. Electronically Signed By: Rylee Brito DO, [facility], VILMA, FAISAL 2021-05-02 14:07:25 MANAGER ED CC: CC: CC: ASSESSMENT/PLAN Hyponatremia from SIADH [...] -monitor ?? I can be reached at [phone] with any concerns. Thank you Nalini Clayton MD for the consult. Yves Weinberg MD [employer] [phone] GER ED * Varsha Crowder NP - 05/11/2021 9:30 [...] Comments: HR Sr 95 VVI Back up 60/10/2- pw taped and [...] the PDA 05/04/[address] Granados Neuro: [id number], slightly impulsive. Seroquel increased CVS: NSR 90's. [...] mid week. Varsha Crowder NP Cardiothoracic Surgery [facility] Cosigned by Rhina Granados MD at 05/11/2021 4:54 PM MANAGER ED GER ED GER ED * Shruthi Hu COTA - 05/11/2021 8:45 AM CST Occupational Therapy NOTE / SESSION TYPE: DAILY PROGRESS / TREATMENT Patient's Name: Deepak Alvarado Age / Sex: 60 y.o. / male Room: [id number] : 1960 Date of service: 05/11/21 [...] session: Yes Completed patient handoff and notified PAUNCH TRIMMER / RN, name: CALE, of patient's location [...] Rich Haynes OT at 05/11/2021 2:17 PM MANAGER ED GER ED GER ED * Lise Suggs, COLLEGE TUTOR - 05/11/2021 8:18 AM CST Urology Progress [...] any questions. Lise Suggs NP Urology Division [facility] Office [phone] 05/11/2021 8:18 AM Cosigned by Robinson Paris MD at 05/17/2021 7:27 PM MANAGER ED GER ED GER ED GER ED * Eleonora Duarte NP - 05/10/2021 12:31 PM CST Cardiothoracic Surgery Progress Note Deepak Alvarado 1960 Hospital DAY#9 6 Days Post-Op s/p: Procedures: * Coronary artery bypass grafting x4, placement of left QUINN to the LAD, saphenous vein graft to thediagonal artery and obtuse marginal in a sequential fashion, saphenous vein graft to the PDA- Munkh Subjective: Patient up in the chair on [...] the PDA 05/04/[address] Granados Neuro: [id number] but mild confusion with impulsive behavior. Will [...] mid week. Eleonora Duarte NP Cardiothoracic Surgery [facility] GER ED GER ED * Anibal Lara MD - 05/10/2021 11:56 [...] NP ? ? al & mag hydroxide pqzbtpzmlzu-lznwmewmdiuytnk-uhslfbqsa-nystatin (MAGIC MOUTHWASH) suspension 1-1-1-1 20 mL swish [...] flush 0.5-20 mL 0.5-20 mL intra-catheter Q8H [facility] Rhina Granados MD 10 mL at 05/10/21 0515 ??? acetaminophen ? ? al & mag hydroxide xtfptqfklsz-nyoeqxdprhnaxrf-ajinqessn-nystatin ??? albumin ??? albuterol ??? dextrose OR [...] and transurethral resection of bladder tumor at [facility] -s/p 20??Faroese three way catheter, urine still bloody -urology [...] MD [facility]ist 05/10/2021 11:56 AM GER ED * Tiana Spence NP - 05/10/2021 8:13 AM CST Daily Progress [...] Some dry blood noted to Alison watson- michelle order humidified o2 OBJECTIVE: Vitals: 05/10/21 0537 [...] thyroid not enlarged. Dry blood noted to L nare (will order humidified o2) Neck: ??I do [...] improved -magic mouthwash PRN Tiana Spence NP [facility] 05/10/2021 8:13 AM GER ED * August Colin MD - 05/10/2021 7:19 [...] hematuria as well. Workup revealed an acute TX. Cath showed multi-vessel CAD. Had balloon pump [...] acetaminophen ? ? al & mag hydroxide sxhhivzkpug-dixoznlmbnxzpos-mjovabbbc-nystatin ??? albumin ??? albuterol ??? dextrose OR [...] Assessment and Plan: Acute respiratory failure Acute TX w CAD s/p CABG x 4 on 05/04/21, past hx multiple stents Cardiogenic shock Cardiomyopathy EF 40% V fib Hx COPD Anemia Infiltrates: edema v pna, tracheal aspirate w yeast ?? Recs: Oxygen as required. Wean as tolerated Incentive spirometry abx coverage for pna Scheduled bronchodilators Follow CXR ??Dobutamine, diuresis Chart reviewed Discussed with RN GER ED * Anibal Lara MD - 05/09/2021 12:20 PM CST Hospitalist Progress Note Name: Deepak Alvarado Admission Date: 05/01/2021 Today's Date: 05/09/2021 Subjective: Pt seen and examined while in the ICU, Clinical course: Overall pt condition has improved. Pt will be transferred to 9th floor, gene Osorio with blood urine and still on [...] NP ? ? al & mag hydroxide bahnyglttoc-tibudiuwwzziooy-dzfuuizjb-nystatin (MAGIC MOUTHWASH) suspension 1-1-1-1 20 mL swish [...] acetaminophen ? ? al & mag hydroxide jokzjkzoofs-satxacyutojeyew-pextskpta-nystatin ??? albumin ??? albuterol ??? dextrose OR [...] and transurethral resection of bladder tumor at [facility] -s/p ??Faroese three way catheter, urine still bloody -urology [...] MD [facility] Hospitalist 05/09/2021 12:20 PM GER ED GER ED * Eleonora Duarte NP - 05/09/2021 11:15 AM CST Cardiothoracic Surgery Progress Note Deepak Adair Lazarus 1960 Hospital DAY#8 5 Days Post-Op s/p: Procedures: * Coronary artery bypass grafting x4, placement of left QUINN to the LAD, saphenous vein graft to thediagonal artery and obtuse marginal in a sequential fashion, saphenous vein graft to the PDA- Munfakh Subjective: In bed on 2L- refused to [...] 3000 [Urine:3000] NET -2439 for 24 hours -8581 for stay Physical Exam HENT: Mouth/Throat: Mouth: [...] next week. Eleonora Duarte NP Cardiothoracic Surgery [facility] Cosigned by Rhina Granados MD at 05/09/2021 6:42 PM MANAGER ED GER ED GER ED * Tiana Spence NP - 05/09/2021 9:33 [...] -magic mouthwash PRN ? Tiana Spence NP [facility] 05/09/2021 9:33 AM GER ED * August Colin MD - 05/09/2021 7:31 [...] hematuria as well. Workup revealed an acute TX. Cath showed multi-vessel CAD. Had balloon pump [...] acetaminophen ? ? al & mag hydroxide espdaxvaufl-eqgbltvzwanteem-bnwihvkke-nystatin ??? albumin ??? albuterol ??? dextrose OR [...] Assessment and Plan: Acute respiratory failure Acute TX w CAD s/p CABG x 4 on 05/04/21, past hx multiple stents Cardiogenic shock Cardiomyopathy EF 40% V fib Hx COPD Anemia Infiltrates: edema v pna, tracheal aspirate w yeast ?? Recs: Oxygen as required. Wean as tolerated Incentive spirometry abx coverage for pna Scheduled bronchodilators Follow CXR ??Dobutamine, diuresis Chart reviewed GER ED * Tiana Spence COLLEGE TUTOR - 05/08/2021 4:12 PM CST Daily Progress SUBJECTIVE: Mr. Alvarado is resting in bed, NAD C/o Mild incisional pain, productive cough, and my mouth and tongue are raw and hurt -> no evidence of thrush on exam. Wet COLLEGE TUTOR cough, afraid to cough it up Denies [...] flush 0.5-20 mL 0.5-20 mL intra-catheter Q8H [facility] LABS: Recent Labs Lab Units 05/08/21 0555 [...] D/w EFREN Maddox CTS Tiana Spence NP [facility] 05/08/2021 4:12 PM GER ED * Monica Morales RD - 05/08/2021 3:22 [...] to Ensure High PRO per flavor preferences. BfKaX8b of 13.5. RD provided Steps To Your [...] medication as directed by your doctor. Call [phone] to speak with a dietitian about any diet related concerns. Recommend to follow up with outpatient nutrition counseling, ask your doctor for a referral and call [phone] to make an appointment. Nutrition Follow-Up : 05/12/21 (verbal edu as able on tuesday) Monica Morales RD,LD GER ED * Laly Lopes MD - 05/08/2021 3:04 PM CST Cardiothoracic Surgery Progress Note Deepak Alvarado 1960 Hospital DAY#7 2 Days Post-Op s/p: Procedures: * CORONARY ARTERY BYPASS GRAFT x 4 - LEFT INTERNAL MAMMARY ARTERY TAKEDOWN, RIGHT SAPHENOUS VEIN ENDOHARVEST, CARDIOPULMONARY BYPASS, TRANSESOPHAGEAL ECHOCARDIOGRAM Subjective: Doing well overnight. On SLAB INSPECTOR slow wean. No complaints. OBJECTIVE: Vitals: Temp: [36.4 ??C (97.5 ??F)] 36.4 ??C (97.5 ??F) Pulse: [70-90] 70 BP: (80-129)/(49-80) 115/66 Resp: [16-32] 18 SpO2: [86 %-100 %] 100 % SVO2: [32 %-62 %] 32 % Arterial Line BP: (87-147)/(35-61) 95/57 PAP: 17/6 (05/08 800) CVP: 0 mmHg (05/08 800) PCWP: -- CO: 4.6 L/min (05/08 410) CI: 2.2 L/min/m2 (05/08 410) SVO2: 32 % (05/08 630) Pacemaker Overdrive Pacing: -- Cardiac Rhythm: Normal [...] line Recent Labs Lab Units 05/08/21 0555 05/07/2142005/06/21 1312 WBC K/cumm 16.2* 16.6* 16.1* HEMOGLOBIN g/dL 10.5* 8.6* 9.0* HEMATOCRIT % 31.0* 25.5* 26.5* PLATELETS K/cumm 247 197 202 Recent Labs Lab Units 05/08/21 0555 05/07/2142005/06/21 2314 SODIUM mmol/L 131* 137 138 POTASSIUM [...] EXC ART mmol/L -4 -3 -4 Drips: SLAB INSPECTOR 2 Imaging: Today's CXR significantly improved pulmonary edema Assessment and Plan: 60 y.o. male 2 Days Post-Op s/p CABG CVS: Cont SLAB INSPECTOR wean. PRN hydral for HTN. ASA, statin, plavix. Pulm: Wean O2 as tolerated GI: CLD Renal: Lasix TID ID: Cont CTX for 7 day course for PNA D/L/T: CVC Prophylaxis: Lovenox Dispo: TTF Laly Lopes MD Cardiothoracic Surgery [facility] Cosigned by Rhina Granados MD at 05/08/2021 5:29 PM MANAGER ED GER ED GER ED * Ellen Shore, WELFARE OFFICER - 05/08/2021 1:51 PM CST Physical Therapy [...] ST elevation myocardial infarction (STEMI) ([facility]) TIME IN: 1351 TIME OUT: 1418 [...] Sandee Paez, PT at 05/08/2021 3:17 PM MANAGER ED GER ED GER ED * Romeo Nagel RN - 05/08/2021 12:02 PM CST Pt transferred to [facility]. Pt tolerated the transfer well. DEEPIKA Yu given bedside report. RN had no questions or concerns. GER ED * Anibal Lara MD - 05/08/2021 11:53 [...] Nightly Rhina Granados MD 80 mg at 05/07/212034 ??? cefTRIAXone (ROCEPHIN) 2,000 mg/20 mL in [...] BID Rhina Granados MD 100 mg at 05/08/21842 ??? enoxaparin (LOVENOX) syringe 40 mg 40 mg subcutaneous Daily-2099 Nimesh Evans MD 40 mg at 05/07/212034 ??? furosemide (LASIX) 10 mg/mL injection 40 mg 40 mg intravenous Q8H Rhina Granados MD 40 mg at 11/19/21 0843 ??? glucagon injection 1 mg 1 mg intramuscular Q30 Min PRN Rhina Granados MD ??? insulin glargine (LANTUS, SEMGLEE) 100 unit/mL injection 10 Units 10 Units subcutaneous NightlyMarek Mei NP 10 Units at 05/07/216 ??? insulin lispro (HumaLOG, ADMELOG) 100 unit/mL injection 0-5 Units 0-5 Units subcutaneous Q4H Marek Mei NP 1 Units at 05/08/21 0845 ??? ondansetron [...] and transurethral resection of bladder tumor at [facility] -s/p 20??Faroese three way catheter, urine still bloody -urology [...] MD [facility]ist 05/08/2021 11:54 AM GER ED * Sheron Adams COTA - 05/08/2021 11:45 AM CST Occupational Therapy NOTE / SESSION TYPE: DAILY PROGRESS / TREATMENT Patient's Name: Deepak Alvarado Age / Sex: 60 y.o. / male Room: [id number] : 1960 Date of service: 05/08/21 TIME [...] session: Yes Completed patient handoff and notified PAUNCH TRIMMER / RN, name: Aimee, of patient's location [...] Tamar Dennis OT at 05/08/2021 3:48 PM MANAGER ED GER ED GER ED * Ralf Tomlinsno MD - 05/08/2021 10:40 AM CST Pulmonary Daily Progress Chief complaint/reason for consult: Respiratory failure. Interval History: Feels better comf on RA Pain controlled Presenting History: 60 yo man w COPD, DM, CAD/stents admitted 05/01/21 with chest pain. Had recent hematuria as well. Workup revealed an acute TX. Cath showed multi-vessel CAD. Had balloon pump [...] Assessment and Plan: Acute respiratory failure Acute TX w CAD s/p CABG x 4 on 05/04/21, past hx multiple stents Cardiogenic shock Cardiomyopathy EF 40% V fib Hx COPD Anemia Infiltrates: edema v pna, tracheal aspirate w yeast ?? Recs: Oxygen as required Incentive spirometry abx coverage for pna Scheduled bronchodilators Follow CXR ?? Chart reviewed GER ED * Nimesh Evans MD - 05/08/2021 10:20 AM CST Images from the original note were not included. Critical Care Medicine Daily Progress Team: SICU [facility] Team Subjective Interval events: No issues overnight, chronic back pain better controlled on current pain regimen. Persisting hematuria but urine appears fish grader in color. Hemoglobin stable post transfusion. O2 [...] to the cardiac catheterization lab here at [facility] where he underwent coronary angiography via right [...] 04/30/21 Inserted by: inserted by urologist at [facility] Placed by External Staff?: Other hospital Catheter Type: Straight-tip Catheter Balloon Size: 10 mL Urine Returned: (c) Yes Number of days: 4 I/O: Date 05/07/21699 - 05/08/2165805/08/21699 - 05/09/21 0659 Shift 0400-9394 6605-9639 24 Hour Total 7238-0984 8283-8685 24 Hour Total INTAKE P.O. 100 100 [...] per unit protocol - PT/OT per post TX/CTS protocol ? ICU standards of care: Restraints: n/a Physical therapy/Activity: up to chair Access: PIV x3, dc PA Cath, dc Art line in L radial Family communication: Patient updated as per his current clinical status and ongoing plan of care. Goals of care: Full code SICU Pine Team, Dr. Nimesh Evans Assessment and plan has been reviewed with attending, DOMENICA Gatica Cosigned by Domenica Rod MD at 05/08/2021 4:44 PM MANAGER ED GER ED GER ED * Lise Suggs, COLLEGE TUTOR - 05/08/2021 8:25 AM CST Urology Progress [...] any questions. Lise Suggs NP Urology Division [facility] Office [phone] 05/08/2021 8:26 AM Cosigned by Edward Trejo DO at 05/08/2021 12:20 PM MANAGER ED GER ED GER ED * Elizabeth Adan NP - 05/07/2021 1:09 [...] AM Result Value Ref Range Product code [id number] Unit Number [id number] Product Blood Type APOS Dispense Status CROSSMATCHED [...] IABP on 05/01/2021. 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 Vitamin-D deficiency.- stable Prophylaxis. ProtonixElizabeth, TRELL Team [facility] [phone] 05/07/2021 1:09 PM GER ED * Sandee Paez, PT - 05/07/2021 10:48 [...] and transurethral resection of bladder tumor) at [facility] 04/30/2021 and was discharged 05/01/2021. Patient transferred to for emergent cardiac catheterization. Patient admitted with acute anterior wall TX, s/p cardiac cath with PTCA of the [...] ST elevation myocardial infarction (STEMI) ([facility]) Past Medical History: Diagnosis Date ??? Chronic obstructive pulmonary disease (CMS/HCC) ([facility]) COPD ??? Coronary artery disease ??? Diabetes mellitus (HCC) ??? H/O heart artery stent 2006 ??? Hypertension Hypertension ??? ST elevation (STEMI) myocardial infarction ([facility]) 05/01/2021 No past surgical history on [...] (from Physical Therapy) Active Problems Problem: PT Mis Start Date: 05/07/21 Goal Start Date Expected End Date End Date PT [facility] 1 05/07/21 05/18/21 -- Goal Details: Perform bed mobility with CG Assist. Goal Start Date Expected End Date End Date PT [facility] 2 05/07/21 05/18/21 -- Goal Details: Perform functional transfers with CG Assist. Goal Start Date Expected End Date End Date PT [facility] 3 05/07/21 05/18/21 -- Goal Details: Gait 150' with WW with CG Assist. Goal Start Date Expected End Date End Date PT [facility] 4 05/07/21 05/18/21 -- Goal Details: Perform LE HEP, incentive spirometry and incentive spirometry with SBA Goal Start Date Expected End Date End Date PT [facility] 5 05/07/21 05/18/21 -- Goal Details: Perform 1 step with CG Assist. Refer to multi-disciplinary care plan section for PT specific goals. If this is the last note, please consider this the discharge summary. GER ED * Nasima Watson MD - 05/07/2021 10:12 [...] stable Anemia -Hb 8.16 ? Nasima Watson MD,[facility] 05/07/2021 10:12 AM GER ED * Nimesh Evans MD - 05/07/2021 9:48 AM CST Images from the original note were not included. Critical Care Medicine Daily Progress Team: SICU Pine Team Subjective Interval events: No issues overnight, chronic back pain better controlled on current pain regimen. Persisting hematuria but urine appears fish grader in color. Hemoglobin stable post transfusion. O2 [...] to the cardiac catheterization lab here at [facility] where he underwent coronary angiography via right [...] 04/30/21 Inserted by: inserted by urologist at [facility] Placed by External Staff?: Other hospital Catheter Type: Straight-tip Catheter Balloon Size: 10 mL Urine Returned: (c) Yes Number of days: 4 I/O: Date 05/06/21 07 - 05/07/21 0659 05/07/21 07 - 05/08/21 0659 Shift 7352-5243 3422-0529 24 Hour Total 0536-6401 3286-7563 24 Hour Total INTAKE I.V.(mL/kg) 1449(15.9) 105(1.1) [...] per unit protocol - PT/OT per post TX/CTS protocol ? ICU standards of care: Restraints: n/a Physical therapy/Activity: up to chair Access: PIV x3, PA Cath, Art line in L radial Family communication: Patient updated as per his current clinical status and ongoing plan of care. Goals of care: Full code SICU Pine Team, Dr. Nimesh Evans Assessment and plan has been reviewed with attending, DOMENICA Gatica Cosigned by Domenica Rod MD at 05/07/2021 3:37 PM MANAGER ED GER ED GER ED Associated attestation - Domenica Rod MD - 05/07/2021 3:37 PM MANAGER ED 60 y/o with cad s/p PCI presented with chest pain and EKG findings concernign for TX transferred here where lad showed multiple stenoses and underwent CABG 05/03. Awake and appropriate PRN opiates if needed for pain Wean off optiflow today to nasal cannula Cardiogenic shock remains on DBT with very low filling pressures. SBP dropped with wean attempt mayconsider cautious fluid administration Domenica Rod MD [facility] Department of Anesthesiology and Critical [...] hematuria as well. Workup revealed an acute TX. Cath showed multi-vessel CAD. Had balloon pump [...] 0419 05/02/21 0443 05/01/21 2219 WBC K/cumm 16.6* 16.1* 14.6* < > [...] 05/02/21 0443 05/01/21 2219 SODIUM mmol/L -- 137 -- 138 -- [...] > -- < > -- < >-- BUN SERUM mg/dL -- 16 -- 17 [...] Assessment and Plan: Acute respiratory failure Acute TX w CAD s/p CABG x 4 on 05/04/21, past hx multiple stents Cardiogenic shock Cardiomyopathy EF 40% V fib Hx COPD Anemia Infiltrates: edema v pna ?? Recs: Oxygen as required Incentive inspirometry Hemodynamic support abx coverage for pna Scheduled bronchodilators Follow CXR ?? Chart reviewed Discussed w RN GER ED * Deirdre Conley, OT - 05/07/2021 8:34 AM CST Occupational Therapy NOTE / SESSION TYPE: Initial Evaluation Patient Name: Deepak Alvarado Date of : 1960 Age / Sex: 60 y.o. / male [id number] Admit Date: 05/01/2021 Date of Service: 05/07/21 Time In: 08:34 Time Out: 09:22 Primary Diagnosis: ST elevation myocardial infarction (STEMI) (HCC) HPI: Deepak Alvarado is a 60 y.o. male who presents with retrosternal chest pain accompanied by sweating and shortness of breath. Patient underwent bladder surgery (cystoscopy, clot evacuation, and transurethral resection of bladder tumor) at [facility] 04/30/2021 and was discharged 05/01/2021. Patient transferred to for emergent cardiac catheterization. Patient admitted with acute anterior wall TX, s/p cardiac cath with PTCA of the [...] session: Yes Completed patient handoff and notified PAUNCH TRIMMER / RN, name: Octavia, of patient's location [...] flexion / abduction 3-/5 Hand Dominance: Right Front Office Representative Strength (Right) fair Front Office Representative Strength (Left): fair Right Serial Opposition: Decreased [...] Active Problems Problem: OT Misc Start Date: 05/07/21 Goal Start Date Expected End Date End Date OT [facility] [place] - Mis 1 05/07/21 05/14/21 -- Goal Details: Patient will complete bathing with minimal assistance and using adaptive equipment PRN one time Goal Start Date Expected End Date End Date OT [facility] - Mis 2 05/07/21 05/14/21 -- Goal Details: Patient will complete UE dressing with minimal assistance one time Goal Start Date Expected End Date End Date OT STG - Mis 3 05/07/21 05/14/21 -- Goal Details: Patient will complete LE dressing with moderate assistance and using adaptive equipment PRN one time Goal Start Date Expected End Date End Date OT [facility] [place] - Mis 4 05/07/21 05/14/21 -- Goal Details: Patient will complete bed/toilet transfers with minimal assistance x1 person and using appropriate device PRN one time each Goal Start Date Expected End Date End Date OT [facility] [place] - Mis 5 05/07/21 05/14/21 -- Goal Details: Patient will complete chest mobilization exercises with moderate verbal cues one time Goal Start Date Expected End Date End Date OT [facility] [place] - Mis 6 05/07/21 05/14/21 -- Goal Details: Patient will adhere to sternal precautions during ADLS with minimal verbal cues one time Goal Start Date Expected End Date End Date OT [facility] [place] - [facility] 7 05/07/21 05/14/21 -- Goal Details: Patient will be oriented x4 using visual cues as needed one time If this is the last note, consider this the discharge summary Deirdre Conley OT 05/07/21 GER ED * Lise Suggs, COLLEGE TUTOR - 05/07/2021 8:05 AM CST Urology Progress [...] Extremities: warm and well perfused : [address] Indw[address] Osorio catheter is patent [...] any questions. Lise Suggs NP Urology Division [facility] Office [phone] 05/07/2021 8:06 AM Cosigned by Edward Trejo DO at 05/07/2021 12:24 PM MANAGER ED GER ED GER ED * Laly Lopes MD - 05/07/2021 7:25 [...] %-70 %] 40 % PAP: 25/10 (05/07 700) CVP: 4 mmHg (05/07 700) PCWP: -- [...] 2 Days Post-Op s/p CABG CVS: Cont SLAB INSPECTOR wean. Keep PAC. PRN hydral for HTN. ASA, statin, plavix. Pulm: Wean O2 as tolerated GI: CLD Renal: Lasix TID ID: Cont CTX for 7 day course for PNA D/L/T: DC CT today Prophylaxis: Lovenox Dispo: CVU Laly Lopes MD Cardiothoracic Surgery [facility] Cosigned by Rhina Granados MD at 05/08/2021 1:57 PM MANAGER ED GER ED GER ED * Lise Suggs, COLLEGE TUTOR - 05/06/2021 4:44 PM CST Urology Progress [...] Extremities: warm and well perfused : #[address] hematuria catheter is draining cranberry [...] any questions. Lise Suggs NP Urology Division [facility] Office [phone] 05/06/2021 4:44 PM Cosigned by Edward Trejo DO at 05/06/2021 5:04 PM MANAGER ED GER ED GER ED * Nalini Clayton MD - 05/06/2021 10:45 AM CST [facility] - Cardiology [facility] Progress Note Admit Date: 05/01/2021 5:20 PM @GEETHAAYS@ PCP: Unknown, Notinfile Patient seen and examined Chart , telemtry reviewed Symptoms Patient denies chest pain, palpitations, sweating or syncope.Requiring high flow O2 in sinus rhythmno VT overnight, Data Vitals: 05/06/21 0945 05/06/21 1000 05/06/21 1015 05/06/21 1030 BP: 108/58 106/59 107/54 101/63 BP Location: Right arm Pulse: 73 70 70 71 Resp: 24 Temp: TempSrc: SpO2: 95% 97% 97% [...] found for: T3FREE No results found for: K0TCJES Pain Assessment: 0-10 Pain Score: 6 Patient's [...] 1. Coronary artery disease: Patient presented to [facility] with an acute STEMI. Catheterization revealed [...] is following.H/H stable ? Nalini Clayton MD GER ED GER ED * Ralf Tomlinson MD - 05/06/2021 10:09 AM CST Pulmonary Daily Progress Chief complaint/reason for consult: Respiratory failure. Interval History: On optiflow this morning, required some bipap yesterday More awake and alert On dobutamine, balloon pump out Low grade fevers Presenting History: 60 yo man w COPD, DM, CAD/stents admitted 05/01/21 with chest pain. Had recent hematuria as well. Workup revealed an acute TX. Cath showed multi-vessel CAD. Had balloon pump [...] 106/59 Pulse: 75 70 73 70 Resp: 26 Temp: TempSrc: SpO2: 95% 95% 95% 97% [...] Units 05/06/21 0332 05/05/21 1204 05/05/21 0419 05/02/213 05/01/219 WBC K/cumm 14.6* 13.5* 13.2* < > [...] 1204 05/04/21 0803 05/04/21 0247 05/03/21 0736 05/03/219 05/02/2144205/01/212218 SODIUM mmol/L -- 142 -- -- [...] Assessment and Plan: Acute respiratory failure Acute TX w CAD s/p CABG x 4 on 05/04/21, past hx multiple stents Cardiogenic shock Cardiomyopathy EF 40% V fib Hx COPD Anemia Infiltrates: edema v pna ?? Recs: Optiflow, adjust as needed, bipap PRN Hemodynamic support abx coverage for pna Tracheal aspirate pending Scheduled bronchodilators Follow CXR ?? Chart reviewed Discussed w RN GER ED * Nmiesh Evans MD - 05/06/2021 9:38 AM CST Images from the original note were not included. DELAYED ENTRY OF NOTE: This patient was evaluated and treated as per below on 05/06/2021 Critical Care Medicine Daily Progress Team: SICU [facility] Team Subjective Interval events: No issues overnight, chronic back pain better controlled on current pain regimen. Persisting hematuria but urine appears fish grader in color. Hemoglobin stable post transfusion. O2 [...] to the cardiac catheterization lab here at [facility] where he underwent coronary angiography via right [...] 04/30/21 Inserted by: inserted by urologist at [facility] Placed by External Staff?: Other hospital Catheter Type: Straight-tip Catheter Balloon Size: 10 mL Urine Returned: (c) Yes Number of days: 4 I/O: Date 05/06/21 07 - 05/07/21 0659 05/07/21 07 - 05/08/21 0659 Shift 0339-7142 8041-3199 24 Hour Total 1550-3830 8691-1266 24 Hour Total INTAKE I.V.(mL/kg) 1449(15.9) 105(1.1) [...] per unit protocol - PT/OT per post TX/CTS protocol ? ICU standards of care: Restraints: [...] care. Goals of care: Full code SICU [facility] Team, Dr. Nimesh Evans Assessment and plan has been reviewed with attending, DOMENICA Gatica Cosigned by Domenica Rod MD at 05/07/2021 7:07 PM MANAGER ED GER ED GER ED * Elizabeth Adan NP - 05/06/2021 9:03 [...] flush 0.5-20 mL 0.5-20 mL intra-catheter Q8H [facility] Physical Exam: Gen: 60-year-old male on OptiFlow [...] IABP on 05/01/2021. 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 Vitamin-D deficiency.- stable Prophylaxis. ProtonixElizabeth ANP Team [facility] [phone] 05/06/2021 9:03 AM GER ED * Marylu Dempsey, PT - 05/06/2021 8:58 AM CST Physical Therapy Physical Therapy continues on medical cancel. Patient currently on bedrest due to IABP. Plans to wean and remove IABP today per RN report. Patient remain extubated on optiflow HFNC. Will attempt evaluation at later time when patient able to participate. Marylu Moreno, PT 05/06/21 9:00 AM GER ED * Laly Lopes MD - 05/06/2021 7:45 [...] CVS: DC IABP today, then begin slow SLAB INSPECTOR wean. Keep PAC. PRN hydral for HTN. ASA, statin, plavix. Pulm: Wean O2 as tolerated GI: CLD Renal: Lasix TID ID: Cont cefepime D/L/T: Keep CT, PAC. DC CBI today. Prophylaxis: Lovenox Dispo: CVU Laly Lopes MD Cardiothoracic Surgery [facility] Cosigned by Rhina Granados MD at 05/08/2021 1:57 PM MANAGER ED GER ED GER ED * Blue Cooley Jr., MD - 05/05/2021 [...] 1. Coronary artery disease: Patient presented to [facility] with an acute STEMI. Catheterization revealed [...] Urology is following. Blue Cooley Jr., MD [facility] 05/05/2021 2:18 PM GER ED * Elizabeth Adan, EFREN - 05/05/2021 1:37 PM CST General Medicine [...] PM Result Value Ref Range Product code O9860H46 Unit Number [id number] Product Blood Type APOS Dispense Status PRESUMED TRANSFUSED Product code O3320A72 Unit Number [id number] Product Blood Type APOS Dispense Status PRESUMED [...] PM Result Value Ref Range Product code F4643E47 Unit Number [id number] Product Blood Type APOS Dispense Status CROSSMATCHED Product code X5587T46 Unit Number [id number] Product Blood Type APOS Dispense Status CROSSMATCHED Product code V0653S95 Unit Number [id number] Product Blood Type APOS Dispense Status CROSSMATCHED Product code D8731L73 Unit Number [id number] Product Blood Type APOS Dispense Status CROSSMATCHED [...] PM Result Value Ref Range Product code E2574T22 Unit Number [id number] Product Blood Type OPOS Dispense Status PRESUMED TRANSFUSED Product code O0068I22 Unit Number [id number] Product Blood Type APOS Dispense Status PRESUMED [...] PM Result Value Ref Range Product code J8073F19 Unit Number [id number] Product Blood Type APOS Dispense Status PRESUMED [...] IABP on 05/01/2021. 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 Protonix, Elizabeth Adan, ANP Team [facility] [phone] 05/05/2021 1:37 PM GER ED * Miranda Garza, DEEPIKA - 05/05/2021 11:33 AM CST CM Initial Assessment Interview Note Information Obtained From: Spouse Name: Geno Alvarado- spouse- [phone], patient designated healthcare liaison (05/05/21 2521) Admission Source: from home with spouse Impression: recently extubated in the CVU/ICU. Normally axox4 and independent from home Plan Includes: return home at discharge Primary Source of Transportation: self and family Health Insurance Coverage: Samanthar- spoke with spouse about insurance was OON for [facility] and what that means. Verbalized understanding. Prescription Coverage: yes Pharmacy: [facility] Primary Care Provider: Unknown, Notinfile- none at this time- instructed spouse to call number on [employer] INS card for assistance finding PCP in their area that take the insurance/ Prior to Admission: Primary Caregiver: Self Support System: Spouse/Significant Other Support system contact info (name, phone, availablity): Geno Alvarado- spouse- [phone], patient designated healthcare liaison Home Care Services: No Durable Medical Equipment: [...] Collaboration with patient, MD, direct care nurse, Rn Practitioner, Nurse Coordinator and other members of the health care team to assure needed interventions completed. 2. Return patient to optimal level of self-care post discharge. 3. Rn Telemetry will follow for Discharge Planning - interventions as needed 4. Anticipated level of care at discharge 5. Planned Discharge Disposition Miranda Garza CHILD WELFARE MANAGER Rn Telemetry [phone] GER ED * Marylu Dempsey, PT - 05/05/2021 9:49 AM CST Physical Therapy Physical Therapy on medical cancel. Patient currently on bedrest due to IABP. Patient was intubatedbut self extubated within the hour. CCP, RN, and RT present in room. Will attempt evaluation at later time when patient able to participate. Marylu Moreno, PT 05/05/21 9:52 AM GER ED * Nimesh Evans MD - 05/05/2021 9:45 AM CST Images from the original note were not included. Critical Care Medicine Daily Progress Team: SICU Pine Team Subjective Interval events: No issues overnight, chronic back pain better controlled on current pain regimen. Persisting hematuria but urine appears fish grader in color. Hemoglobin stable post transfusion. O2 [...] to the cardiac catheterization lab here at [facility] where he underwent coronary angiography via right [...] dexmedeTOMIDine, 0-1.5 mcg/kg/hr, Last Rate: 1 mcg/kg/hr (05/05/21 09) DOButamine, 5 mcg/kg/min, Last Rate: 5 mcg/kg/min (05/05/21899) insulin regular, 0-30 Units/hr, Last Rate: 3.3 Units/hr (05/05/21 0655) norepinephrine, 0-2 mcg/kg/min, Last Rate: 0.06 mcg/kg/min (05/05/21899) propofol, 0-50 mcg/kg/min, Last Rate: 10 mcg/kg/min (05/05/21 09) sodium chloride 0.9 %, 3,000 [...] 04/30/21 Inserted by: inserted by urologist at [facility] Placed by External Staff?: Other hospital Catheter Type: Straight-tip Catheter Balloon Size: 10 mL Urine Returned: (c) Yes Number of days: 4 I/O: Date 05/04/21 07 - 05/05/21 0659 05/05/21 07 - 05/06/21 0659 Shift 1796-0755 1996-7015 24 Hour Total 1300-0881 6687-0907 24 Hour Total INTAKE P.O. 120 120 I.V.(mL/kg) 1180(12.9) 4416(48.4) 5596(61.3) Blood 850 1886 2736 IV Piggyback 1000 1000 Shift Total(mL/kg) 2150(23.5) 7302(80) 9452(103.5) OUTPUT Urine(mL/kg/hr) -1890(-1.7) 1850(1.7) -40(-0) 1050 1050 Other 1700 1700 Chest Tube 1025 1025 Shift Total(mL/kg) -190(-2.1) 2875(31.5) 2685(29.4) 1050(11.5) 1050(11.5) NET 2344 0550 3222 -1050 -1050 Weight (kg) 91.3 91.3 91.3 [...] PM Result Value Ref Range Product code W1388B54 Unit Number [id number] Product Blood Type APOS Dispense Status PRESUMED TRANSFUSED Product code F7963N18 Unit Number [id number] Product Blood Type APOS Dispense Status PRESUMED [...] PM Result Value Ref Range Product code V1839K00 Unit Number [id number] Product Blood Type APOS Dispense Status CROSSMATCHED Product code O8689N12 Unit Number [id number] Product Blood Type APOS Dispense Status CROSSMATCHED Product code T3868B49 Unit Number [id number] Product Blood Type APOS Dispense Status CROSSMATCHED Product code D4617D57 Unit Number [id number] Product Blood Type APOS Dispense Status CROSSMATCHED [...] PM Result Value Ref Range Product code R4546B28 Unit Number [id number] Product Blood Type OPOS Dispense Status ISSUED Product code V5813L82 Unit Number [id number] Product Blood Type APOS Dispense Status ISSUED [...] PM Result Value Ref Range Product code G1049D36 Unit Number [id number] Product Blood Type APOS Dispense Status ISSUED [...] PM Result Value Ref Range Product code X3767W94 Unit Number [id number] Product Blood Type APOS Dispense Status PRESUMED TRANSFUSED Product code D5653F98 Unit Number [id number] Product Blood Type APOS Dispense Status PRESUMED [...] PM Result Value Ref Range Product code R6751C41 Unit Number [id number] Product Blood Type APOS Dispense Status CROSSMATCHED Product code U6059H41 Unit Number [id number] Product Blood Type APOS Dispense Status CROSSMATCHED Product code B3981J55 Unit Number [id number] Product Blood Type APOS Dispense Status CROSSMATCHED Product code I2863R76 Unit Number [id number] Product Blood Type APOS Dispense Status CROSSMATCHED [...] PM Result Value Ref Range Product code T8704C48 Unit Number [id number] Product Blood Type OPOS Dispense Status ISSUED Product code Q1987O46 Unit Number [id number] Product Blood Type APOS Dispense Status ISSUED [...] PM Result Value Ref Range Product code A9265F75 Unit Number [id number] Product Blood Type APOS Dispense Status ISSUED [...] per unit protocol - PT/OT per post TX/CTS protocol ? ICU standards of care: Restraints: [...] care. Goals of care: Full code SICU [facility] Team, Dr. Nimesh Evans Assessment and plan has been reviewed with attending, FRANK Romero Cosigned by Frank Dugan MD at 05/05/2021 12:22 PM MANAGER ED GER ED GER ED * Samra Kearns, ABIOLA - 05/05/2021 9:35 AM CST Patient self-extubated at this time. SPO2 84% on room air. Placed patient on 100% FIO2 via non-rebreather mask. SPO2 increased to 92%. Opti-flow set up at this time for increased flow. Starting settings 100% FIO2 and 60 liters per minute. Will continue to monitor oxygen requirements and wean as tolerated. GER ED * Lise Suggs, COLLEGE TUTOR - 05/05/2021 8:14 AM CST Urology Progress [...] any questions. Lise Suggs NP Urology Division [facility] Office [phone] 05/05/2021 8:15 AM Cosigned by Edward Trejo DO at 05/05/2021 10:26 AM MANAGER ED GER ED GER ED * Deirdre Conley, OT - 05/05/2021 7:55 AM CST Occupational Therapy 05/05/21 5812 General Session Type Other (comment) (No OT Provided. No OT Charge.) OT Missed Visit Reason Other (comment) (Medical Cancel.) Per consultation with RN, patient not medically stable for OT evaluation and still has a balloon-pump in place. Will continue to follow patient and re- attempt OT evaluation at a later time and when medically appropriate Deirdre Conley, STACI 05/05/21 7:56 AM GER ED * Angie Davies RRT - 05/05/2021 2:21 AM CST Code Blue was called at approximately 0200. Pt was ventilated with BVM, ROSC was achieved quickly. Patient returned to ventilator on prior settings and etCO2 monitoring was initiated. GER ED * Lester Batista MD - 05/04/2021 9:59 AM CST Cardiology Inpatient Progress Note [facility] SUBJECTIVE: BP borderline in [...] stable - Urology following Lester Batista MD, FACC, [facility], RPVI [employer] [facility] [phone] GER ED * Nimesh Evans MD - 05/04/2021 9:53 AM CST Images from the original note were not included. Critical Care Medicine Daily Progress Team: SICU Pine Team Subjective Interval events: No issues overnight, chronic back pain better controlled on current pain regimen. Persisting hematuria but urine appears fish grader in color. Hemoglobin stable post transfusion. O2 [...] to the cardiac catheterization lab here at [facility] where he underwent coronary angiography via right [...] 04/30/21 Inserted by: inserted by urologist at [facility] Placed by External Staff?: Other hospital Catheter Type: Straight-tip Catheter Balloon Size: 10 mL Urine Returned: (c) Yes Number of days: 4 I/O: Date 05/03/21699 - 05/04/21 0659 05/04/21 07 - 05/05/21 0659 Shift 9277-3205 7339-2907 24 Hour Total 5682-3927 3262-6258 24 Hour Total INTAKE P.O. 360 360 I.V.(mL/kg) 1158(12.6) 878(9.6) 2036(22.3) Shift Total(mL/kg) 1518(16.5) 878(9.6) 2396(26.2) OUTPUT Urine(mL/kg/hr) 720(0.7) 1310(1.2) 2030(0.9) 310 310 Shift Total(mL/kg) 720(7.8) 1310(14.3) 2030(22.2) 310(3.4) 310(3.4) NET 798 -251 244 -310 -310 Weight (kg) 91.8 91.3 91.3 [...] per unit protocol - PT/OT per post TX/CTS protocol ? ICU standards of care: Restraints: n/a Physical therapy/Activity: bedrest (IABP) Access: PIV, R fem arterial sheath Family communication: none at bedside. Will update as available. Patient updated as per his currentclinical status and ongoing plan of care. Goals of care: Full code SICU Pine Team, Dr. Nimesh Evans Assessment and plan has been reviewed with attending, FRANK Romero Cosigned by Frank Dugan MD at 05/04/2021 10:51 AM MANAGER ED GER ED GER ED * Elizabeth Adan NP - 05/04/2021 8:53 [...] AM Result Value Ref Range Product code E6245Y67 Unit Number [id number] Product Blood Type APOS Dispense Status CROSSMATCHED Product code X8250W36 Unit Number [id number] Product Blood Type APOS Dispense Status CROSSMATCHED Product code A6656G92 Unit Number [id number] Product Blood Type APOS Dispense Status CROSSMATCHED Product code L8188Q19 Unit Number [id number] Product Blood Type APOS Dispense Status CROSSMATCHED [...] mg/dL Assessment & Plan: Acute anterior wall TX on admission. Admission troponins were 5852, 7281, [...] and transurethral resection of bladder tumor at [facility] ; urology consult ; [address] catheter inserted by the bedside RN - start continuous irrigation CAD, status post LAD stent on 02/06/2010, per Care everywhere. Bladder tumor resection at [facility], on 04/30/2021, per patient report. Hypertension. Blood pressure controlled. On metoprolol. Hyperlipidemia. On statin. Type 2 diabetes. On Lantus, sliding-scale insulin. PVD. No ABIs or AIF available for review. Tobacco use. Vitamin-D deficiency. Leukocytosis of 16.4, follow. Anemia with hemoglobin of 10.7, follow. Slight hyponatremia, resolved. Prophylaxis. Protonix, SCDs. Elizabeth Adan, [facility] [phone] 05/04/2021 8:53 AM GER ED * Laly Lopes MD - 05/04/2021 6:58 AM CST Cardiothoracic Surgery Progress Note Deeapk Alvarado 1960 [facility] DAY#3 3 Days Post-Op s/p: Procedures: * PCI PTCA - MAJOR CORONARY [id number] * PCI PTCA EA ADDTN'L BRANCH OF MAJOR CORONARY (+) 21613 * IABP INSERTION, PERCUTANEOUS 42774 Subjective: - no chest pain or SOB [...] AT pulses Recent Labs Lab Units 05/04/21 0252 05/03/2141805/02/211934 WBC K/cumm 16.7* 16.4* 16.5* HEMOGLOBIN g/dL [...] 8.4* Recent Labs Lab Units 05/04/21 02405/03/21 0419 05/02/21 1100 05/02/21 0032 05/01/212218 PROTIME (PT) sec [...] 100% proximal stenosis of the LAD with oriental orthodox of flow. An IABP wasplaced. He is stable for now without chest pain ?? Plan: - EF 40% on echo, no valvular abnormalities - Continue IABP - Need the images from wheelabrator operator uploaded to PICOM/PACS - evaluation this AM prior to OR Plan OR for second case today Laly Lopes MD Cardiothoracic Surgery [facility] Cosigned by Rhina Granados MD at 05/04/2021 12:27 PM MANAGER ED GER ED GER ED * Ochoa Encinas MD - 05/03/2021 9:59 AM CST Cardiology Inpatient Progress Note [facility] SUBJECTIVE: Pt had no [...] improved -continue to monitor Ochoa Encinas MD, [facility] 05/03/2021 9:59 AM GER ED * Ainsley Rashid MD - 05/03/2021 9:36 AM CST Cardiothoracic Surgery Progress Note Deepak Giovany Alvarado 1960 [facility] DAY#2 2 Days Post-Op s/p: Procedures: * PCI PTCA - MAJOR CORONARY * PCI PTCA EA ADDTN'L BRANCH OF MAJOR CORONARY (+) * IABP INSERTION, PERCUTANEOUS 77335 Subjective: - no chest pain or SOB [...] 100% proximal stenosis of the LAD with oriental orthodox of flow. An IABP wasplaced. He is [...] obtained today - Need the images from wheelabrator operator uploaded to PICOM/PACS - Posted for OR tomorrow - Baseline Hg A1C 13% Ainsley Rashid MD Cardiothoracic Surgery [facility] Cosigned by Alex Blanco MD PhD at 05/11/2021 4:20 PM MANAGER ED GER ED GER ED GER ED Associated attestation - Alex lBanco MD PhD - 05/11/2021 4:20 PM MANAGER ED I have seen and examined the patient [...] pain regimen. Persisting hematuria but urine appears fish grader in color. Hemoglobin stable post transfusion. O2 [...] to the cardiac catheterization lab here at [facility] where he underwent coronary angiography via right [...] 2 mcg/kg/min, Last Rate: 2 mcg/kg/min (05/03/21 2117) heparin, 0-33 Units/kg/hr, Last Rate: 11.6 Units/kg/hr [...] 04/30/21 Inserted by: inserted by urologist at [facility] Placed by External Staff?: Other hospital Catheter Type: Straight-tip Catheter Balloon Size: 10 mL Urine Returned: (c) Yes Number of days: 2 Vent settings: I/O: Date 05/02/21 07 - 05/03/21 0659 05/03/21 07 - 05/04/21 0659 Shift 6582-2189 1538-0782 24 Hour Total 8874-5997 5612-9110 24 Hour Total INTAKE P.O. 0 0 [...] PM Result Value Ref Range Product code [id number] Unit Number [id number] Product Blood Type APOS Dispense Status PRESUMED [...] Electronically Signed By: Rylee Brito DO, FACC, VILMA, FASMARA 2021-05-02 14:07:25 MANAGER ED XR Chest 1 Vw Portable Result Date: [...] of centrilobular emphysematous changes. Electronically signed by: Brandi Russell IIOAldo Plan: Neuro: #Acute on chronic pain - [...] per unit protocol - PT/OT per post TX/CTS protocol ICU standards of care: Restraints: n/a Physical therapy/Activity: bedrest (IABP) Access: PIV, R fem arterial sheath Family communication: none at bedside. Will update as available. Patient updated as per his currentclinical status and ongoing plan of care. He he is talked extensively with CTS and aware will be going for CABG tomorrow Goals of care: Full code Frank Dugan MD [phone] [facility] GER ED * Lulú Garcia MD - 05/03/2021 8:21 [...] Pulse: 82 78 75 82 Resp: 12 24 19 Temp: TempSrc: SpO2: 95% 95% 97% [...] Daily Nalini Clayton MD 324 mg at 05/03/2146 ??? atorvastatin (LIPITOR) tablet 80 mg 80 [...] Units 2,000 Units intravenous Q6H PRN Nalini Clatyon MD Or ??? heparin 1,000 unit/mL injection [...] Continuous Nalini Clayton MD 50 mL/hr at 05/02/212342 50 mL/hr at 05/02/212342 ??? traZODone (DESYREL) tablet 50 mg 50 [...] and mood ASSESSMENT/PLAN: 1. Acute anterior wall TX on admission. Admission troponins were 5852, 7281, [...] Care everywhere. 4. Bladder tumor resection at [facility], on 04/30/2021, per patient report. 5. Hypertension. Blood pressure controlled. On metoprolol. 6. Hyperlipidemia. On statin. 7. Type 2 diabetes. On Lantus, sliding-scale insulin. 8. PVD. No ABIs or AIF available for review. 9. Tobacco use. 10. Vitamin-D deficiency. 11. Leukocytosis of 16.4, follow. 12. Anemia with hemoglobin of 10.7, follow. 13. Slight hyponatremia, resolved. 14. Prophylaxis. Protonix, SCDs. GER ED * Balta Ahn MD - 05/02/2021 1:24 [...] to the cardiac catheterization lab here at [facility] where he underwent coronary angiography via right [...] 8.0 Fr. 50 mL (Active) Placement Date/Time: 11/12/21 1834 Insertion Site: Right femoral Sutured: Yes Catheter/Balloon Size: 8.0 Fr. Balloon/ Catheter Volume: 50 mL Verification by X-ray: Yes Number of days: 0 Urethral Catheter Straight-tip (Active) Placement Date: 04/30/21 Inserted by: inserted by urologist at [facility] Placed by External Staff?: Other hospital Catheter Type: Straight-tip Catheter Balloon Size: 10 mL Urine Returned: (c) Yes Number of days: 2 Vent settings: I/O: Date 05/01/21699 - 05/02/21 0659 05/02/21699 - 05/03/21 0659 Shift 3752-9472 7608-0974 24 Hour Total 7216-3287 1212-5192 24 Hour Total INTAKE P.O. 500 500 [...] code Balta Ahn MD EM-Critical Care Fellow [phone] Cosigned by Frank Dugan MD at 05/02/2021 2:26 PM MANAGER ED GER ED GER ED * Joe Weinberg MD - 05/02/2021 12:42 PM CST [facility] Daily Progress SUBJECTIVE: Very stressed C/o l hip and back pain Denies Chest pain Questions about CABG answered OBJECTIVE: Vitals: 05/02/21 1045 05/02/21 1100 05/02/21 1115 05/02/21 1130 BP: 92/56 111/61 112/52 105/58 BP Location: Patient Position: Pulse: 57 75 71 74 Resp: 20 15 22 28 Temp: TempSrc: SpO2: 93% 91% 92% 91% [...] 0-33 Units/kg/hr intravenous Titrated 10 mL/hr at 05/01/21 2204 11.601 Units/kg/hr at 05/01/21 2204 ??? insulin glargine (LANTUS, SEMGLEE) 100 unit/mL [...] 12.5 mg oral BID 12.5 mg at 05/02/21836 ??? ondansetron (ZOFRAN) injection 4 mg 4 mg intravenous Q6H PRN ??? oxyCODONE (ROXICODONE) tablet 5 mg 5 mg oral Q4H PRN 5 mg at 05/02/21837 ??? pantoprazole DR (PROTONIX) extended release tablet 40 mg 40 mg oral Daily 40 mg at 05/02/21837 ??? senna-docusate (PERICOLACE) 8.6-50 mg per tablet 1 tablet 1 tablet oral Nightly ??? sodium chloride 0.9% infusion 50 mL/hr intravenous Continuous 50 mL/hr at 05/02/219 50 mL/hr at 05/02/21 004 LABS: Recent Labs Lab Units 05/02/21 0443 [...] will discontinue before surgery Joe Weinberg MD, [facility] [phone] [facility] 05/02/2021 12:42 PM GER ED GER ED documented in this encounter H&P Notes * [...] substernal, and accompaniedwith sweating. He went to [place] ED with EKG changes concerning for STEMI. He was taken to the wheelabrator operator yesterday by Dr. Clayton and was found to have re-thrombosis of his previous LAD stents. Dr. Clayton was able to open them but unable to stent this. They placed a IABP and he was admitted to the CVU. 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 He was transferred to [facility] for STEMI and taken to the wheelabrator operator where his LAD and diagonalstents were found [...] intravenous, Titrated, Last Rate: 10 mL/hr at 05/01/21 2204, 11.601 Units/kg/hr at 05/01/21 2204 ??? insulin glargine (LANTUS, SEMGLEE) 100 unit/mL [...] intravenous, Continuous, Last Rate: 50 mL/hr at 05/02/2148, 50 mL/hr at 05/02/2148 Allergies Allergen Reactions ??? Metoclopramide Past Medical [...] me Labs: Reviewed. Recent Labs Lab Units 05/02/21442 WBC K/cumm 18.3* HEMOGLOBIN g/dL 9.6* HEMATOCRIT % 29.3* PLATELETS K/cumm 313 Recent Labs Lab Units 05/02/21 0831 05/02/21 0450 05/02/21 0443 05/01/21 22105/01/212218 SODIUM mmol/L -- -- 135 < > [...] 100% proximal stenosis of the LAD with oriental orthodox of flow. An IABP was placed. He [...] to proceed. Rhina Granados MD Cardiothoracic Surgery [facility] Thank you for allowing us to participate in the care of this patient. We will continue to follow. If you have any questions, please don't hesitate to call. Ainsley Rashid MD Cardiothoracic Surgery [facility] [phone] 110:13 AM GER ED GER ED GER ED GER ED * Erika Suárez NP - 05/02/2021 9:54 AM CST History and Physical CHIEF COMPLAINT No chief complaint on file. HPI Patient is a 60 y.o. male with past medical history of CAD status post TX, hypertension, hyperlipidemia, PVD, COPD and tobacco abuse who presented to the hospital due to chest pain. Per review of therecords patient had bladder surgery yesterday at [facility]. He was dischargedhome but returned back to the hospital due to dizziness. He states he was trying to go home when hesuddenly felt dizzy and broke out in a sweat. After arrival to [facility] patient complained chest pain and repeat EKG was performed which showed ST elevation in anterior chest leads. Due to the above patient was transferred to [facility] for further evaluation and care. [...] History: Diagnosis Date ??? COPD CAD s/p TX 2006 & 2009 ??? Diabetes mellitus (HCC) [...] the diagonal 04/30/21 PCI/PTCA 04/29/2021 Bladder surgery / bladder tumor at [facility] ALLERGIES Allergies Allergen Reactions ??? Metoclopramide FAMILY [...] illicit street drugs. 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 LAB/RADIOLOGY/DIAGNOSTIC: Recent Labs Lab Units 05/02/21 44205/01/212218 WBC K/cumm 18.3* 15.7* HEMOGLOBIN g/dL 9.6* 9.4* HEMATOCRIT % 29.3* 28.2* PLATELETS K/cumm 313 312 NEUTROS PCT % -- 73.4 LYMPHS PCT % -- 15.5 MONOS PCT % -- 9.8 EOS PCT % -- 0.6 Recent Labs Lab Units 05/02/21 0831 05/02/21 04505/02/2144205/01/21221805/01/212218 SODIUM mmol/L -- -- 135 -- 134* [...] 9:55 AM Team Health Primary Care Physician: Unknown, Notinfile Voice recognition software [employer] Fluency Direct was used dictate and transcribe this document. Facilities Specialist variances may occur. Despite proofreading, typographical errors may occur. Cosigned by Lulú Garcia MD at 05/03/2021 8:02 AM MANAGER ED GER ED GER ED GER ED documented in this encounter Procedure Notes * [...] plan with the ICU team and other medical/aws consultant staff, making frequent assessments and decisions [...] Austin Hoffman MD at 06/09/2021 1:01 PM MANAGER ED GER ED GER ED * Erika Mayer NP - 05/30/2021 7:00 [...] plan with the ICU team and other medical/aws consultant staff, making frequent assessments and decisions [...] Trinh Yeh MD at 06/01/2021 8:34 AM MANAGER ED GER ED GER ED * Marek Mei NP - 05/29/2021 8:51 [...] plan with the ICU team and other medical/aws consultant staff, making frequent assessments and decisions [...] Austin Hoffman MD at 06/09/2021 1:01 PM MANAGER ED GER ED GER ED * Elena Kelly NP - 05/29/2021 7:00 [...] plan with the ICU team and other medical/aws consultant staff, making frequent assessments and decisions [...] Dominique Wilkinson MD at 05/29/2021 8:50 PM MANAGER ED GER ED GER ED * Karolina Muñoz NP - 05/28/2021 10:32 PM CSTAssociated Order(s): Critical Care Post-Procedure Diagnose(s): Acute respiratory failure due to COVID-19 (HCC) Critical Care Performed by: Karolina Muñoz NP Authorized by: Karolina Muñoz NP CRITICAL CARE: Team: CHENG Shift: [...] plan with the ICU team and other medical/aws consultant staff, making frequent assessments and decisions [...] Austin Hoffman MD at 06/09/2021 1:01 PM MANAGER ED GER ED GER ED * Alejandro Gonzalez NP - 05/28/2021 11:04 [...] plan with the ICU team and other medical/aws consultant staff, making frequent assessments and decisions [...] spent time documenting in the medical record GER ED * Karolina Muñoz NP - 05/27/2021 8:35 PM CSTAssociated Order(s): Critical Care Post-Procedure Diagnose(s): Acute respiratory failure due to COVID-19 (HCC) Critical Care Performed by: Karolina Muñoz NP Authorized by: Karolina Muñoz NP CRITICAL CARE: Team: CHENG Shift: [...] plan with the ICU team and other medical/aws consultant staff, making frequent assessments and decisions [...] Austin Hoffman MD at 06/09/2021 1:01 PM MANAGER ED GER ED GER ED GER ED * Alejandro Gonzalez NP - 05/27/2021 2:44 [...] plan with the ICU team and other medical/aws consultant staff, making frequent assessments and decisions [...] Dominique Wilkinson MD at 05/28/2021 8:01 AM MANAGER ED GER ED GER ED * Frank Dugan MD - 05/26/2021 9:59 PM CSTAssociated Order(s): Critical Care Post-Procedure Diagnose(s): Chronic obstructive pulmonary disease, unspecified COPD type (HCC); Pneumonia due to COVID-19 virus; Acute hypoxemic respiratory failure due to COVID-19 (CMS/HCC) (HCC); S/P CABG x 4; ST elevation myocardial infarction involving left circumflex coronary artery ([facility]) Critical Care Performed by: Frank Dugan [...] plan with the ICU team and other medical/aws consultant staff, making frequent assessments and decisions [...] from bedside monitors, laboratory results, and imaging GER ED * Karolina Muñoz NP - 05/26/2021 4:37 PM CSTAssociated Order(s): Critical Care Post-Procedure Diagnose(s): ST elevation myocardial infarction (STEMI), unspecified artery (HCC); COVID Critical Care Performed by: Karolina Muñoz NP Authorized by: Karolina Muñoz NP CRITICAL CARE: Team: CHENG Shift: [...] plan with the ICU team and other medical/aws consultant staff, making frequent assessments and decisions [...] Dominique Wilkinson MD at 05/26/2021 7:52 PM MANAGER ED GER ED GER ED * Frank Dugan MD - 05/25/2021 9:14 PM CSTAssociated Order(s): Critical Care Post-Procedure Diagnose(s): Chronic obstructive pulmonary disease, unspecified COPD type (HCC); Pulmonary edema with congestive heart failure (CMS/HCC) (HCC); Pneumonia due to COVID-19 virus; Acute hypoxemic respiratory failure due to COVID-19 (CMS/HCC) (HCC); S/P CABG x 4 Critical Care Performed [...] plan with the ICU team and other medical/aws consultant staff, making frequent assessments and decisions [...] from bedside monitors, laboratory results, and imaging GER ED GER ED * Karolina Muñoz NP - 05/25/2021 4:03 PM CSTAssociated Order(s): Critical Care Post-Procedure Diagnose(s): ST elevation myocardial infarction (STEMI), unspecified artery (HCC); COVID Critical Care Performed by: Karolina Muñoz NP Authorized by: Karolina Muñoz NP CRITICAL CARE: Team: CHENG Shift: [...] plan with the ICU team and other medical/aws consultant staff, making frequent assessments and decisions [...] Dominique Wilkinson MD at 05/26/2021 7:16 AM MANAGER ED GER ED GER ED * Frank Dugan MD - 05/24/2021 11:38 PM CSTAssociated Order(s): Critical Care Post-Procedure Diagnose(s): Type 2 diabetes mellitus with other specified complication, without long-term current use of insulin (HCC); Chronic obstructive pulmonary disease, unspecified COPD type (HCC); Pneumonia due to COVID-19 virus; Acute hypoxemic respiratory failure due to COVID-19 (CMS/HCC) ( [facility]); S/P CABG x 4; ST elevation myocardial infarction involving left circumflex coronary artery ([facility]) Critical Care Performed by: Frank Dugan [...] plan with the ICU team and other medical/aws consultant staff, making frequent assessments and decisions [...] spent time documenting in the medical record GER ED * Silviano Huddleston NP - 05/24/2021 1:50 [...] plan with the ICU team and other medical/aws consultant staff, making frequent assessments and decisions [...] Dominique Wilkinson MD at 05/25/2021 10:52 AM MANAGER ED GER ED GER ED * Frank Dugan MD - 05/23/2021 8:57 [...] plan with the ICU team and other medical/aws consultant staff, making frequent assessments and decisions [...] spent time documenting in the medical record GER ED * Silviano Huddleston NP - 05/23/2021 3:32 [...] plan with the ICU team and other medical/aws consultant staff, making frequent assessments and decisions [...] Dominique Wilkinson MD at 05/25/2021 10:52 AM MANAGER ED GER ED GER ED * Frank Dugan MD - 05/22/2021 11:35 [...] plan with the ICU team and other medical/aws consultant staff, making frequent assessments and decisions [...] spent time documenting in the medical record GER ED * Silviano Huddleston NP - 05/22/2021 7:44 [...] plan with the ICU team and other medical/aws consultant staff, making frequent assessments and decisions [...] Alexandru Porter MD at 05/29/2021 6:01 PM MANAGER ED GER ED GER ED * Jose Conti MD - 05/21/2021 11:31 [...] plan with the ICU team and other medical/aws consultant staff, making frequent assessments and decisions [...] spent time documenting in the medical record GER ED * Silviano Huddleston NP - 05/21/2021 8:00 [...] plan with the ICU team and other medical/aws consultant staff, making frequent assessments and decisions [...] Alexandru Porter MD at 05/22/2021 1:14 PM MANAGER ED GER ED GER ED * Jose Conti MD - 05/20/2021 11:33 [...] plan with the ICU team and other medical/aws consultant staff, making frequent assessments and decisions [...] spent time documenting in the medical record GER ED GER ED * Silviano Huddleston NP - 05/20/2021 8:00 [...] plan with the ICU team and other medical/aws consultant staff, making frequent assessments and decisions [...] Alexandru Porter MD at 05/20/2021 6:02 PM MANAGER ED GER ED GER ED * Elena Kelly NP - 05/19/2021 7:00 [...] plan with the ICU team and other medical/aws consultant staff, making frequent assessments and decisions [...] Jose Conti MD at 05/22/2021 12:26 AM MANAGER ED GER ED GER ED * Elena Kelly NP - 05/18/2021 7:00 [...] plan with the ICU team and other medical/aws consultant staff, making frequent assessments and decisions [...] Jose Conti MD at 05/19/2021 6:25 AM MANAGER ED GER ED GER ED * Caleb Toth PA - 05/18/2021 10:32 [...] plan with the ICU team and other medical/aws consultant staff, making frequent assessments and decisions [...] Alexandru Porter MD at 05/19/2021 6:17 PM MANAGER ED GER ED GER ED * Elena Kelly NP - 05/17/2021 7:00 [...] plan with the ICU team and other medical/aws consultant staff, making frequent assessments and decisions [...] Jose Conti MD at 05/18/2021 6:21 AM MANAGER ED GER ED GER ED * Caleb Toth PA - 05/17/2021 8:04 [...] plan with the patient's team and other medical/aws consultant staff. This time was in addition to and separate from care provided by other practitioners on this day of service. Cosigned by Alexandru Porter MD at 05/17/2021 6:10 PM MANAGER ED GER ED GER ED * Jose Conti MD - 05/17/2021 3:31 [...] plan with the ICU team and other medical/aws consultant staff, making frequent assessments and decisions [...] spent time documenting in the medical record GER ED * Domenica Rod MD - 05/07/2021 3:37 PM CSTAssociated Order(s): Critical Care Post-Procedure Diagnose(s): ST elevation myocardial infarction (STEMI), unspecified artery (HCC) Critical Care Performed by: Domenica Rod MD Authorized by: Domenica Rod MD CRITICAL CARE: Team: [employer] Shift: AM Level of Billing: Critical Care [...] plan with the ICU team and other medical/aws consultant staff, making frequent assessments and decisions [...] in the medical record Domenica Rod MD [facility] Department of Anesthesiology and Critical Care GER ED * Wally Aguilar DO - 05/05/2021 11:05 [...] plan with the ICU team and other medical/aws consultant staff, making frequent assessments and decisions [...] spent time documenting in the medical record GER ED GER ED * Frank Dugan MD - 05/05/2021 12:25 [...] plan with the ICU team and other medical/aws consultant staff, making frequent assessments and decisions [...] from bedside monitors, laboratory results, and imaging GER ED * Wally Aguilar DO - 05/05/2021 2:26 [...] separate from the billed critical care time. GER ED * Wally Aguilar DO - 05/04/2021 8:13 [...] plan with the ICU team and other medical/aws consultant staff, making frequent assessments and decisions [...] spent time documenting in the medical record GER ED * Frank Dugan MD - 05/04/2021 10:31 [...] plan with the ICU team and other medical/aws consultant staff, making frequent assessments and decisions [...] from bedside monitors, laboratory results, and imaging GER ED * Nalini Clayton MD - 05/04/2021 12:00 AM CST Mr. Alvarado is a 60-year-old male who presented with acute anterior wall myocardial infarction. He hada history of previous coronary artery disease and had 2 layers of stent put in his proximal and midLAD, [place] in 2006 and [place] in 2009. Moderate-sized diagonal was jailed by the [place] stent and this diagonal had a stent in the ostium extending into the proximal segment also. Angiogram revealed complete occlusion of the proximal part of the LAD. After the left main was engaged with a 6-Faroese CLS 3.5 guide, a 0.014, 190 cm [...] of the diagonal. A 3.0 x 15 [employer] balloon was placed in the proximal and mid segment of the LAD and inflated at 14 atmospheres. Angiogram done at this point revealed oriental orthodox of flow in the LAD and the [...] high risk of stenosis and would also snf moderate-sized diagonal vessel. Coronary artery bypass surgery [...] grafting on Tuesday. Job ID/VF Job ID: [id number] GER ED * Wally Aguilar DO - 05/03/2021 7:56 [...] plan with the ICU team and other medical/aws consultant staff, making frequent assessments and decisions [...] through the OR. Heparin drip to stop library information technician or OR, Integrilin to stop at 0800, [...] know what his new regimen will be. GER ED * Frank Dugan MD - 05/03/2021 9:14 [...] plan with the ICU team and other medical/aws consultant staff, making frequent assessments and decisions [...] from bedside monitors, laboratory results, and imaging GER ED * Wally Aguilar DO - 05/02/2021 8:00 [...] plan with the ICU team and other medical/aws consultant staff, making frequent assessments and decisions [...] - Heparin drip PUD - Home PPI GER ED * Frank Dugan MD - 05/02/2021 2:27 [...] plan with the ICU team and other medical/aws consultant staff, making frequent assessments and decisions [...] from bedside monitors, laboratory results, and imaging GER ED GER ED GER ED * Wally Aguilar DO - 05/01/2021 8:15 [...] plan with the ICU team and other medical/aws consultant staff, making frequent assessments and decisions [...] spent time documenting in the medical record GER ED * Nalini Clayton MD - 05/01/2021 6:51 [...] CABG Tuesday This is a preliminary report GER ED GER ED * Nalini Clayton MD - 05/01/2021 12:00 [...] 50 mL balloon pump was chosen. A 6-Faroese sheath used for diagnostic catheterization was replaced with an 8- Faroese sheath. Over the balloon pump wire a 50 mL intra-aortic balloon pump was positioned in the descending aorta. Appropriate systolic augmentation and diastolic unloading was observed. The sheath was sutured with 2-0 silk. The patient tolerated the procedure well. There were no complications. Summary Successful insertion of a 50 mL balloon pump through the right femoral artery. Job ID/VF Job ID: [id number] GER ED * Nalini Clayton MD - 05/01/2021 12:00 [...] and fentanyl. Procedure In modified Seldinger technique, 6-Faroese sheath was inserted in the right femoral artery. Catheterwas introduced over a flexible guidewire. Hemodynamic measurements were made and pressures were recorded before contrast was injected. Single plane left ventriculogram was recorded in 30-degree IRVING position using 36 mL of contrast injected at 12 mL/second into the left ventricle cavity. Following selective coronary catheterization using 5-Faroese John 4 right and left John 4 [...] ventricular systolic function. Job ID/VF Job ID: [id number] GER ED documented in this encounter Consult Notes * Angelo Vance MD - 05/20/2021 10:00 AM CST Infectious Disease Consult Consulting Physician: HPI: Patient is a 60 y.o. male with multiple medical problems including a history of peripheral vasculardisease, COPD was initially admitted to the hospital on 05/02 for chest pain. Patient had had bladder surgery a day prior [facility]. Patient was found to have ST elevation in the anterior chest leads he was then transferred to [facility] at that time. Patient was [...] 1624 ? ? al & mag hydroxide gbyitdsmwhh-ezcgqtruhwjyemg-hcuekavrj-nystatin (MAGIC MOUTHWASH) suspension 1-1-1-1 20 mL swish [...] 5 Units 5 Units subcutaneous Daily Elena Kelly, EFREN 5 Units at 05/20/21 0021 ??? ipratropium-albuteroL [...] follow with you. Angelo Vance MD 05/20/2021 GER ED * Jose Conti MD - 05/17/2021 2:28 [...] on 04/29. He was taken to the wheelabrator operator on 04/30 where they found in-stent thrombosis [...] chloride 0.9% 100 mL IVPB 3.375 g qrfiluvhrpoB0U LEAH ??? polyethylene glycol (MIRALAX) packet 17 [...] 05/15/211815 ? ? al & mag hydroxide zqpcxcuiigq-ipahjmrdbngjlmz-yauoaqicc-nystatin, 20 mL, 20 mL at ??? albuterol, [...] src 05/02/21 0800 Oral Heart Rate Source 05/02/21 005 Monitor;Pulse Oximetry Patient Position 05/02/21 005 Lying BP Location 05/02/21 005 Other (Comment) FiO2 (%) 05/04/212024 60 % [...] - will reassess w/ labs and cxr GER ED * Sixto Fish MD - 05/13/2021 5:30 [...] post stent, hypertension, COPD got admitted to [facility] on 05/01/2021 with acute STEMI [...] 2223 ? ? al & mag hydroxide dvzfuzkayek-pgzdjorjyewfdbq-eglwchdue-nystatin (MAGIC MOUTHWASH) suspension 1-1-1-1 20 mL swish [...] BID Rhina Granados MD 100 mg at 05/13/21935 ??? [Held by Provider] enoxaparin (LOVENOX) syringe 40 mg 40 mg subcutaneous Daily-2100 Rhina Granados MD 40 mg at 05/10/212140 ??? glucagon injection 1 mg 1 mg intramuscular Q30 Min PRN Anibal Lara MD ??? guaiFENesin ER (MUCINEX) extended release tablet 600 mg 600 mg oral BID Tiana Spence NP 600 mg at 05/13/21935 ??? haloperidol (HALDOL) injection 2 mg 2 [...] chloride 0.9% 100 mL IVPB 3.375 g ymyavigdwofK7G [facility] Eleonora Duarte NP 200 mL/hr at 05/13/21 1724 3.375 g at 05/13/21 1724 ??? polyethylene glycol (MIRALAX) packet 17 g 17 g oral BID Rhina Granados MD 17 g at 05/13/21 0936 ??? potassium chloride ER (KLOR-CON) extended release tablet 20 mEq 20 mEq oral BID Eleonora Duarte NP 20 mEq at 05/13/21 0936 ??? QUEtiapine (SEROquel) tablet 25 mg 25 mg oral Daily Varsha Crowder NP 25 mg at 05/13/21 0937 ??? QUEtiapine (SEROquel) tablet 50 mg 50 mg oral Nightly Varsha Crowder NP 50 mg at ??? sodium chloride 0.9% flush 0.5-20 mL 0.5-20 mL intra-catheter Q8H [facility] Rhina Granados MD 10 mL at 05/13/21 1729 Allergies Allergen Reactions ??? Metoclopramide Social History [...] along with you. Sixto Hurtado MD 05/13/2021 GER ED * Yves Weinberg MD - 05/10/2021 5:41 PM CST Nephrology Consult [facility] Reason for Consult: hyponatremia Requesting Provider: [...] to the cardiac catheterization lab here at [facility] where he underwent coronary angiography via right [...] ABD soft, bs pos EXT no edema RIDES ATTENDANT grossly non focal Dialysis Access Exam: NA [...] with left pleural fluid decreasing. No pneumothorax. Altha-Radha catheter remainsin place Impression: Decreasing failure, atelectasis [...] with left pleural fluid decreasing. No pneumothorax. Altha-Radha catheter remains in place Impression: Decreasing failure, [...] atelectasis with left pleural fluid. No pneumothorax. Altha-Radha catheter remains in place Impression: Decreasing failure. No pneumothorax. Electronically signed by: Deacon Cummings M.D. XR Chest 1 View - Portable - in AM Result Date: 05/07/2021 Narrative: EXAMINATION: XR CHEST 1 VIEW DATE: 05/07/2021 3:55 AM HISTORY: 60-year-old man follow-upcardiac surgery FINDINGS:Compared with study of the previous day, postsurgical changes in the heartand mediastinum with cardiomegaly are stable. Altha-Radha catheter remains in place. Left thoracostomy tube [...] Interval placement of endotracheal tube, nasogastric tube, Altha-Radha catheter, left thoracostomy tube and mediastinal drain [...] Echo (TTE) Limited Result Date: 05/07/2021 Narrative: [place] [address] Limited Echocardiogram Report Patient Name: DEEPAK ALVARADO : 1960 StudyDate: 05/07/2021 12:16:52 PM Gender: M Tech: Location: [id number] Ref.Provider: RHINA GRANADOS Height(Cm): 175 BSA: 2.1 [...] tamponade. Electronically Signed By: Gianni Francois MD, [facility] :54:09 MANAGER ED Transthoracic Echo Complete W Doppler/CF Result Date: 05/02/2021 Narrative: [place] [address] Echocardiogram Report Patient Name: DEEPAK ALVARADO W : 1960 Study Date: 05/02/2021 8:50:02 AM Gender: M Tech: Location: [id number] Ref Provider: NALINI CLAYTONHeight(Cm): 175 BSA: 2.11 [...] valve. Electronically Signed By: Rylee Brito DO, [facility], [place], FAISAL 2021-05-02 14:07:25 MANAGER ED CC: CC: CC: Assessment/Plan Principal Problem: ST [...] ? Yves Weinberg MD 5:41 PM 05/10/2021 GER ED * Cristina Anaya RD - 05/05/2021 3:51 PM CSTAssociated Order(s): [...] 1 ml/kcal ?? Total Fluid Estimated Needs: 3 mL/day Objective Anthropometrics Weight: 91.3 kg (201 lb 4.5 oz) Admission Weight : 86.2 kg Weight Change: -0.46 kg (-1.02 lbs) IBW/kg (Calculated) : 72.6 kg Height: 175.3 cm (5' 9.02 ) Weight in (lb) to have BMI = 25: 169 BMI (Calculated): 29.7 3 Day I/O Summary 05/030 - 05/05 0659 In: 24244 [P.O.:120; I.V.:6474] Out: 3995 [Urine:1270] Temp: 36.7 ??C (98.1 ??F) Minute Ventilation (L/min): 12.7 L/min Past Medical History: Diagnosis Date ??? Chronic obstructive pulmonary disease (CMS/HCC) ([facility]) COPD ??? Coronary artery disease ??? Diabetes mellitus ([facility]) ??? H/O heart artery stent 2006 ??? Hypertension Hypertension ??? ST elevation (STEMI) myocardial infarction ([facility]) 05/01/2021 Medications and Lab Review: Scheduled [...] medication as directed by your doctor. Call [phone] to speak with a dietitian about any diet related concerns. Recommend to follow up with outpatient nutrition counseling, ask your doctor for a referral and call [phone] to make an appointment. Nutrition Follow-Up : 05/08/[address],LD GER ED * Ralf Tomlinson MD - 05/05/2021 11:15 AM CST Pulmonary Consult Reason for Consult: respiratory failure HPI: 60 yo man w COPD, DM, CAD/stents admitted 05/01/21 with chest pain. Had recent hematuria as well. Workup revealed an acute TX. Cath showed multi-vessel CAD. Had balloon pump [...] DOButamine, 5 mcg/kg/min, Last Rate: 5 mcg/kg/min (05/05/211099) insulin regular, 0-30 Units/hr, Last Rate: 0 Units/hr (05/05/21 0816) norepinephrine, 0-2 mcg/kg/min, Last Rate: 0.03 mcg/kg/min (05/05/211099) propofol, 0-50 mcg/kg/min, Last Rate: Stopped (05/05/21 09) sodium chloride 0.9 %, 3,000 mL sodium chloride 0.9%, 20 mL/hr, Last Rate: 20 mL/hr (05/04/21 193) sodium chloride 0.9%, 3-12 mL/hr PRN Meds:.??? [...] 05/04/21 0247 05/03/21 0736 05/03/21 0419 05/02/21 4303 05/01/21 3629 SODIUM mmol/L -- -- -- -- 143 [...] Assessment and Plan: Acute respiratory failure Acute TX w CAD s/p CABG x 4 on 05/04/21, past hx multiple stents Cardiogenic shock Cardiomyopathy EF 40% V fib Hx COPD Anemia Infiltrates: edema v pna Recs: Optiflow, adjust as needed, may also consider bipap High risk for re-intubation Hemodynamic support abx coverage for pna Tracheal aspirate pending Scheduled bronchodilators Follow CXR Chart reviewed Discussed w RN and RT GER ED Edward Juarez DO - 05/04/2021 8:09 AM CSTAssociated Order(s): IP CONSULT TO UROLOGY; IP CONSULT TO UROLOGY Images from the original note were not included. DEPARTMENT OF SURGERY, DIVISION OF UROLOGY INPATIENT / HOSPITAL CONSULTATION Reason for Consult: blood clots occluding osorio, request CBI Requesting Physician: Dr. Evans Consulting Physician: Edward Trejo DO, RAYNA Subjective Deepak Alvarado is a 60 y.o. male who we have been asked to see in consultation for gross hematuria. He is admitted for cardiac workup and intervention. He is on the schedule for CABG today. Apparently had a cystoscopy with clot evacuation at [facility] about a week ago. He was told he had a tumor. I do not have these records for review. This was done by the private Urology group. He is a smoker. We have been asked to see him regarding gross hematuria which has been a persistent problem since transferred here to [facility]. The nursing staff hand irrigated him overnight [...] 89% I/O last 2 completed shifts: In: 2396 [P.O.:360; I.V.:2035] Out: 2029 [Urine:2030] Objective Physical Exam: Vitals: 05/04/21 0645 05/04/21 [...] AM Result Value Ref Range Product code G9385J82 Unit Number [id number] Product Blood Type APOS Dispense Status CROSSMATCHED Product code K2951N08 Unit Number [id number] Product Blood Type APOS Dispense Status CROSSMATCHED Product code V7234P79 Unit Number [id number] Product Blood Type APOS Dispense Status CROSSMATCHED Product code V6843X74 Unit Number [id number] Product Blood Type APOS Dispense Status CROSSMATCHED [...] evacuation and transurethral resection [facility] bladder[facility] at [facility] by the private Urology group. I do not have the records available for review. I do not have pathology available for review. Plan: [address] catheter inserted by the bedside [...] have any questions. Edward Trejo DO, MBA [employer] Department of Surgery, Division of Urology Pager: [phone] 05/04/2021 8:09 AM This note was written using a voice recognition system hardware device. Please note there may be variance in spelling, grammar, and syntax because of the voice recognition system hardware. Not every sentence has been reviewed in its entirety and if there are any concerns about the above please contact Dr. Trejo directly at [phone]. GER ED * Wally Aguilar DO - 05/01/2021 8:15 PM CST Images from the original note were not included. Critical Care Medicine [place] [facility] [place] for Consult: Critical care status post [...] to the cardiac catheterization lab here at [facility] where he underwent coronary angiography via right [...] abnormality Replace PRN Heme: Heparin drip for TX DVT PPX: heparin drip SCD's ID: Monitor fever curve No antibiotics for now ICU standards of care: Restraints: None Physical therapy/Activity: Bedrest with balloon pump in place Access: Intra-aortic balloon pump, peripheral IVs, Osorio Other: None Goals of care: Full code [facility] [place] Aguilar DO Section of Acute and Critical Care Surgery [facility] GER ED * Nalini Clayton MD - 05/01/2021 6:49 PM CST Cardiology Consult Chart reviewed, patient examined. Discussed with care team. See dictated report GER ED * Nalini Clayton MD - 05/01/2021 12:00 AM CST Mr. Alvarado is a 60-year-old male who is being seen for evaluation of acute anterior wall myocardial infarction. History of Present Illness Mr. Alvarado is a 60-year-old male who is a known patient of coronary artery disease, status post multiple stent placements in the LAD who underwent bladder surgery at [facility] yesterday. He was discharged in the morning today and while driving home developed retrosternal chest pain which he described as dull in character, moderate in severity, continuous, accompanied by sweating andshortness of breath. He went to the emergency department at [facility] and from there was transferred to this [...] diagonal. In January of 2010 he had [place] stent placed in the LAD. The patient [...] Patient presented to the emergency department at [facility] with sudden onset of chest pain whiledriving [...] to do so. Job ID/VF Job ID: [id number] GER ED documented in this encounter Nursing Notes * Inna Sorto, DEEPIKA - 06/03/2021 3:22 PM CST Patient discharged home to self care. Post CABG discharge education done. Core measures completed. COLLEGE TUTOR Ellen Maynard from cardiology group notified of ARB missing from the discharge medications. She sayspatient to continue with carvedilol and no ARB at this time. GER ED * Sal Raya RN - 06/01/2021 10:12 AM CST Impression: Patient evaluated by DEE POE due to increased risk for impaired skin integrity, Marko Score 18 . Contributing past medical history includes: DM, HTN, PCI. On evaluation skin is healthy appearing with no breakdown noted. Plan: Implementation of pressure injury prevention measures including; Q2 turns, waffle mattress, elevate the heels. Goal: Promote optimal skin hygiene & maintain skin integrity. DEE RN to follow patient during hospitalization. For any questions or concerns please contact DEE POE, Sal Raya GER ED * Varsha William RN - 05/31/2021 6:45 PM CST Patient came from ICU via stretcher. Alert and oriented times 4. Able to make needs known. No complaints at this time. Eating dinner at this time. Call light within reach. GER ED * Enrico Anthony RN - 05/25/2021 2:04 PM CST Impression: Patient evaluated by DEE POE due to increase risk for impaired skin integrity. Marko Score: 18 Contributing history includes:CAD,TX,CAD. Plan: Continue pressure prevention orders- Q2 turns, waffle mattress, absorbant pads, and prevalon boots. Goal: pressure relief and moisture management. GER ED * Terra Spicer RN - 05/18/2021 12:27 PM CST 4 FR PICC line placed to PRIETO via the brachial vein, good blood return noted, lumen flushes freely as placement confirmed by successful 3CG System Signals. GER ED * Devonte Ward RN - 05/17/2021 3:24 AM CST Second EXHIBITION SPECIALIST called on patient at this time due to deteriorating oxygen sats, tachypnia, and heavy use of accessory muscles to breath. See v/s. Lung sounds course throughout left lung lobe/diminished throughout right lung lobe. Patient on 15 L high flow, satting low 90s/ high 80s. Arrived at bedside for EXHIBITION SPECIALIST...Hair Gurrola RN, charge nurse, ne RN and second 9th floor staff nurse. Dr. Marianne lowe; orders received; see orders. Awaiting bed placement in CVU. EXHIBITION SPECIALIST end 214 with patient on nonrebreather, awake and vss. Will follow. GER ED * Devonte Ward RN - 05/17/2021 2:45 AM CST Patient transferred to CVU bed 5 at this time. All patient personal belongings out of room with patient. Dr. Lopes arrived at patient bedside. This RN, Racheal RT and second 9th floor staff sonographer transferred patient via bed. Prior patient transfer, report given to Mani POE, CVU nurse. Will follow. GER ED * Devonte Ward RN - 05/16/2021 10:40 PM CST EXHIBITION SPECIALIST called on patient d/t low oxygen sats...83% on 10L HF; 83% on 12 L HF; 91% on 15 L HF. Patient placed on nonrebreater-sats at 97%. Hari RN, chargemaster analyst, Daniela RN, Rapid Response team, Michelle, and this RN in patient's room. DR. Lopes paged and notified of situation; orders received for one time of Lasix 40 mg ivp only. 2305: EXHIBITION SPECIALIST complete; patient currently on 10 L HF, satting 91%. Will follow. GER ED GER ED * Devonte Ward RN - 05/10/2021 5:50 AM CST Patient resting in bed at this time; on 6l high flow nc; will follow. GER ED * Devonte Ward RN - 05/10/2021 5:48 AM CST This RN spoke to at this time; reported patient's syncopal episode; order received; willfollow. GER ED * Devonte Ward RN - 05/10/2021 5:35 [...] down and patient awoke, code blue cancelled. EXHIBITION SPECIALIST called, in lieu. Will follow. GER ED * Enrico Anthony RN - 05/02/2021 9:29 AM CST Impression: Patient evaluated by SWAT RN due to increase risk for impaired skin integrity. Marko Score:15 Contributing history includes:CAD, TX, and DM Plan: Continue pressure prevention orders- Q2 turns, waffle mattress, absorbant pads, and prevalon boots. Goal: Pt's skin will remain intact and free from pressure injuries. GER ED * Jessica Adams RN - 05/02/2021 12:55 AM CST [facility] documented in this encounter Miscellaneous Notes * Plan of Care - Mahsa Parra RN - 06/03/2021 2:28 PM CST Goals: Clinical Goals for the Shift: Comfort, safety, possible discharge home to self care today Summary:Pt educated on Stemi and discharge follow up care post CABG. GER ED * Plan of Care - Inna Sorto RN - 06/03/2021 1:41 PM CST Patient discharged to selfcare with family by Dr Zelaya. IV removed and patient given discharge education. GER ED * Plan of Care - Katiuska Livingston MSW - 06/03/2021 11:12 AM CST 06/03/2021 11:12 AM (CT) Katiuska Livingston: Pt is medically stable. Home o2 Walk completed. Pt does notrequire O2 at the time of discharge. 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 SW will be available as needed. PARKER Lopez Rn Practitioner Case Management 06/03/2021 11:12 AM GER ED * Plan of Care - Inna Sorto [...] perfusion and functioning will improve Outcome: Progressing GER ED * Plan of Neelima - Jeana Ocasio RN - 06/03/2021 8:46 AM CST Spoke to Dr. Lara regarding potential discharge and home oxygen evaluation. Ok to order home o2 evaluation, order placed. Jeana Ocasio RN Case Manager [phone] GER ED * Plan of Care - Azucena Hsu RN - 06/03/2021 2:21 AM CST Goals: Clinical Goals for the Shift: antibiotics, monitor for s/ of infection, reoccuring chest pain, paincontrol Summary: GER ED * Plan of Regina Pollard RN - [...] perfusion and functioning will improve Outcome: Progressing GER ED * Provider Query - Anibal Lara MD [...] of the patient???s medical record. Thank you, Karolina Leung RN, BSN Clinical Maternal Child Nurse [facility] Teams: Karolina Leung PerfectServe: Karolina Leung [facility] NAME: Karolina Leung Email: [email or web address] GER ED * Plan of Care - Katiuska Livingston MSW - 06/02/2021 3:08 PM CST 06/02/2021 3:07 PM (CT) Katiuska Livingston: Due to COVID isolation, SW contacted pt???s room to discuss his DC plan. Pt stated that he will return home at the time of discharge and denied LTACH, SNF, inpatient rehab, and home health. SW followed up with pt???s , Geno ([phone]), via phone. Pt???s stated that we want [...] home health. SW will follow. PARKER Lopez Rn Practitioner Case Management 06/02/2021 3:08 PM GER ED * Plan of Care - Katiuska Livingston MSW - 06/02/2021 12:31 PM CST 06/02/2021 12:31 PM (CT) Katiuska Livingston: ABRAHAM followed up with [facility] Liaison Chiara ([phone]). Chiara stated that she is waiting on insurance authorization. Awaiting insurance authorizationfor LTAC. ABRAHAM will follow. PARKER Lopez Rn Practitioner Case Management 06/02/2021 12:31 PM GER ED * Plan of Care - Ellen Drummond RN - 06/02/2021 2:39 AM CST Goals: Clinical Goals for the Shift: stable vital signs, monitor o2 sat ans wean o2 as needed , monitor blood glucose Summary: Problem: Health Behavior: Goal: Understanding of discharge needs will improve Outcome: Progressing Problem: Activity: Goal: Activity Intolerance will improve Outcome: Progressing GER ED * Plan of Care - Suzie Meza [...] maintain adequate ventilation will improve Outcome: Progressing GER ED * Plan of Care - Ellen Drummond [...] information provided will improve Outcome: Not Progressing GER ED * Significant Event - Silviano Huddleston NP - 05/31/2021 12:59 PM MANAGER ED ICU to Floor Transfer Plan to move patient to the 8th floor. Sign out given to Team health hospitalist. Please see most recent daily progress note for detailed HPI, hospital course, and significant events. Do not hesitateto reach out via phone if any further questions/concerns. Silviano Huddleston NP Phone number to be reached at: [phone] (IRAIDA 1) Cosigned by Frank Dugan MD at 05/31/2021 2:14 PM MANAGER ED GER ED GER ED * Plan of Care - Charan Salas RN - 05/31/2021 5:43 AM CST Goals: Clinical Goals for the Shift: stable vs, wean o2 Summary: Pt had intermittent desats overnight, O2 sats high 80s, O2 increased to 4L NC. No other acute events overnight. GER ED * Plan of Care - Marcel Kaur [...] tolerated, worked with PT. No significant changes. GER ED * Plan of Care - Deepak Bills [...] improve oxygenation, wean oxygen, comfort and safety. GER ED * Plan of Care - Miranda Garza RN - 05/28/2021 12:01 PM MANAGER ED Spoke with spouse Geno about LTACH and what it offers. We discussed locations and which ones were available in the [facility] area. She was agreeable for the closer location of [facility] [place]. Will speak with patient vis phone after lunch. Remains on isolation for Covid at this time. Chiara at [facility] notified and will begin insurance authorization process. Miranda Garza RN BSN Rn Telemetry [phone] GER ED * Plan of Care - Kyree Bower [...] activity intolerance will decrease Outcome: Not Progressing GER ED * Plan of Care - Kyree Bower [...] Respiratory status will improve Outcome: Not Progressing GER ED * Plan of Care - Paresh Ross RN - 05/24/2021 6:31 PM MANAGER ED Goals: Clinical Goals for the Shift: VSS, [...] will improve Outcome: Progressing ts trend positively GER ED * Plan of Care - Qing Fernandez [...] protocol. Wean FiO2 to maintain SpO2 >92%. GER ED * Plan of Care - Kyree Bower [...] care needs will improve Outcome: Not Progressing GER ED * Plan of Care - Stefania Gallegos [...] tolerates the treatment well with good technique. GER ED * Plan of Care - Leola Truong [...] be avoided or minimized Outcome: Not Progressing GER ED * Plan of Care - Tiana Salazar RN - 05/22/2021 5:45 PM CST Goals: Clinical Goals for the Shift: VSS, comfort and safety GER ED * Plan of Care - Miranda Garza RN - 05/22/2021 1:49 PM MANAGER ED Patient remains on optiflow and insulin infusion in the ICU. Alert to person and place, confused attimes. If oxygen requirements are lessened , patient may be able to qualify for LTACH. Will continue to follow patient progress. Miranda Garza RN BSN Rn Telemetry [phone] GER ED * Plan of Care - Serenity Delgado [...] and functioning will improve Outcome: Not Progressing GER ED * Plan of Care - Tiana Salazar RN - 05/21/2021 1:59 PM CST Goals: Clinical Goals for the Shift: vss, wean optiflow, pain control, comfort, safety GER ED * Plan of Care - Laura Rey [...] wean optiflow, pain control, comfort, safety Summary: GER ED * Plan of Care - Alexa iRvera RN - 05/20/2021 5:52 PM CST Goals: [...] bed and HOB increased to 40 degrees. COLLEGE TUTOR to bedside. Patient denies shortness of breath, breathing unlabored, O2 saturation now 95%. RT updated. Patient asking if he is at [facility] and what time it is, patient [...] will be avoided or minimized Outcome: Progressing GER ED GER ED GER ED * Plan of Care - Miranda Garza RN - 05/19/2021 1:34 PM MANAGER ED Per chart review patient on 2 L nc today. Remain hypotensive and tachycardic. Off pressors at this time. Lasix infusion continues. Worked with therapy today and up in chair . CM/SW will continue to follow patient progress. Miranda Garza RN BSN Rn Telemetry [phone] GER ED * Plan of Care - Betty Rogers [...] nc vitasl stable possible move to tele GER ED * Plan of Care - Deandre Harrison RN - 05/19/2021 6:05 AM CST Goals: Clinical Goals for the Shift: Stable VS/Labs, Comfort Summary: This patient required 15L High Flow overnight. He also required restarting Levophed to keep his BP at an acceptable level. Urine output has dropped, also, although kidney function (from labs) has improved. GER ED * Plan of Care - Marylu Dempsey, PT - 05/18/2021 12:58 PM CST Patient with decline in medical status with transfer to ICU. Patient progress slowed due to acute respiratory distress, but still making progress. All goals remain appropriate at this time. GER ED * Plan of Care - Betty Rogers RN - 05/18/2021 7:27 AM CST Goals: Clinical Goals for the Shift: Stable VS/Labs, Comfort Summary: stable on lasix gtt, weaning levophed picc ordered today GER ED * Plan of Care - Deandre Harrison RN - 05/18/2021 6:15 AM CST Goals: Clinical Goals for the Shift: Stable VS/Labs, Comfort Summary: Patient did require more Oxygen support. GER ED * Plan of Care - Romeo Nagel RN - 05/17/2021 11:35 AM CST Goals: Clinical Goals for the Shift: discussed the plan of care for the day with patient Summary: Pt up in the chair. VSS. Weaning levophed as tolerated. GER ED * Plan of Care - Deirdre Hoskins RRT - 05/17/2021 11:29 AM CST Oxygen Therapy Patient remains on oxygen titration protocol. Wean FiO2 to maintain SpO2 >92%. Patient is on 6L HFNC and has been weaned from 15L to 12L and so on. Continue to wean o2 as tolerated. GER ED * Plan of Care - Shailesh Talbert RN - 05/17/2021 6:52 AM CST Goals: Clinical Goals for the Shift: RN vss condom cath Summary: levo started for hypotension GER ED * Plan of Care - Devonte Ward RN - 05/17/2021 12:47 AM CST Goals: Clinical Goals for the Shift: vss; decrease in oxgyen needs; normalizing routine labs; Summary: see cares and safety GER ED * Plan of Care - Samantha Heaton RN - 05/16/2021 5:21 PM CST Goals: Clinical Goals for the Shift: monitor breathing, monitor v/s, comfort, safety, repositioning Summary: GER ED * Plan of Care - Morenita Ramirez [...] improve urinary status Summary: continue clinical goals GER ED * Plan of Care - Charo Girard [...] refused. worked with ot, see notes. Vss. GER ED * Anesthesia Post-op Follow-up Note - Robert [...] drink with no issues, no anesthetic complaints GER ED * Plan of Care - Apryl Killian MSW - 05/15/2021 11:20 AM CST [facility] is not able to accept pt. For home health care. [facility] sent referrals for SNF to [facility] and rehab in [place], [place] for SNF. Per Nurse (Charo) in [facility] this morning. Pt. Is not ready for DC. [employer] will f/u. GER ED * [facility] Note - Apryl Killian MSW - 05/15/2021 11:10 AM CST Images from the original note were not included. Patient Information: Meds and Admin Active Only All Meds/Most Recent Administrations All Meds/Most Recent Administrations eptifibatide (INTEGRILIN) 0.75 mg/mL infusion [[id number]] Ordering Provider: Nalini Clayton MD Status: Completed (Past End Date/Time) Ordered On: 05/01/211754 Frequency: Continuous PRN Timestamps Action Dose / Rate Route Other Information 05/01/211754 New Bag 2 mcg/kg/min 18.29 mL/hr intravenous Performed by: Amarjit Oropeza RN Documented by: Alexa Amor RN sodium chloride 0.9% infusion [[id number]] Ordering Provider: Nalini Clayton MD Status: Completed (Past End Date/Time) Ordered On: 05/01/211757 Frequency: Continuous PRN Timestamps Action Dose / Rate Route Other Information 05/01/21 172 New Bag 500 mL/hr 500 mL/hr intravenous Performed by: Amarjit Oropeza RN Documented by: Alexa Amor RN heparin in 0.45% sodium chloride 25,000 units/250 mL (100 units/mL) infusion (premix) [[id number]] Ordering Provider: Nalini Clayton MD Status: Completed (Past End Date/Time) Ordered On: 05/01/211831 Frequency: Continuous PRN Timestamps Action Dose / Rate Route Other Information 05/01/211831 New Bag 1,000 Units/hr 10 mL/hr intravenous Performed by: Amarjit Oropeza RN Documented by: Alexa Amor RN potassium chloride ER (KLOR-CON) extended release tablet 40 mEq [[id number]] Ordering Provider: Balta Ahn MD Status: Completed [...] Performed by: Safia Raya RN Scanned Package: 1480-5030-37, 2647-8445-56 ondansetron (ZOFRAN) injection 4 mg [[id number]] Ordering Provider: Rhina Granados MD Status: Verified Ordered On: 05/02/21 102 Start: 05/02/21 102 Dose (Remaining/Total): 4 mg (--/--) Route: intravenous Frequency: Every 6 hours PRN Rate/Duration: -- / 2 Minutes (No admins scheduled or recorded for this medication) sodium chloride 0.9% IVPB 0-250 mL [[id number]] Ordering Provider: Balta Ahn MD Status: Completed (Past End Date/Time) Ordered On: 05/02/21 152 Starts/Ends: 05/02/21 1600 - 05/01/212205 Dose (Remaining/Total): [...] in sodium chloride (premix) solution 2 g [[id number]] Ordering Provider: Wally Aguilar DO Status: Completed (Past End Date/Time) Ordered On: 05/02/212232 Starts/Ends: 05/02/212314 - 05/02/212342 Dose (Remaining/Total): 2 g (0/1) Route: intravenous Frequency: Once Rate/Duration: -- / 60 Minutes Admin Instructions: Room temperature only Line Med Link Info Comment Peripheral IV 05/01/21 20 G Right Antecubital 05/02/212242 by Jessica Adams RN -- Timestamps Action Dose / Duration Route Other Information 05/02/212242 New Bag 2 g 60 Minutes intravenous Performed by: Jessica Adams RN Scanned Package: 46388-551-26 potassium chloride ER (KLOR-CON) extended release tablet 40 mEq [[id number]] Ordering Provider: Wally Aguilar DO Status: Completed (Past End Date/Time) Ordered On: 05/02/212232 Starts/Ends: 05/02/212314 - 05/02/212241 Dose (Remaining/Total): 40 mEq (0/1) Route: oral Frequency: Once Rate/Duration: -- / -- Admin Instructions: Do not crush, chew, cut, dissolve, open or otherwise manipulate tablet/capsule. Timestamps Action Dose Route Other Information 05/02/21 2242 Given 40 mEq oral Performed by: Jessica Adams RN Scanned Package: 5214-0972-63, 4880-2361-31 diazePAM (VALIUM) injection 5 mg [[id number]] Ordering Provider: Nimesh Evans MD Status: Completed (Past End Date/Time) Ordered On: 05/04/21 0703 Starts/Ends: 05/04/21 0745 - 05/04/21 0746 Dose (Remaining/Total): 5 mg (0/1) Route: intravenous Frequency: Once Rate/Duration: -- / 1 Minutes Timestamps Action Dose / Duration Route Other Information 05/04/21 0745 Given 5 mg 1 Minutes intravenous Performed by: Sandra Farmer RN Scanned Package: 1254-4539-74 magnesium sulfate 4 g/100 mL in water (premix) 4 g [[id number]] Ordering Provider: Rhina Granados MD Status: Completed (Past End Date/Time) Ordered On: 05/04/21 0716 Starts/Ends: 05/04/21 0800 - 05/04/21 0948 Dose (Remaining/Total): 4 g (0/1) Route: intravenous Frequency: Once Rate/Duration: -- / 90 Minutes Timestamps Action Dose / Duration Route Other Information 05/04/21 0818 New Bag 4 g 90 Minutes intravenous Performed by: Sandra Farmer RN Scanned Package: 67087-200-44 sodium chloride 0.9% irrigation 1,000 mL [[id number]] Ordering Provider: Edward Trejo DO Status: Completed (Past End Date/Time) Ordered On: 05/04/21 0936 Starts/Ends: 05/04/21 1015 - 05/04/21 0936 Dose (Remaining/Total): 1,000 mL (0/1) Route: irrigation Frequency: Once Rate/Duration: -- / -- Timestamps Action Dose Route Other Information 05/04/21935 Given 1,000 mL irrigation Performed by: Tereza Encinas RN Scanned Package: 3906-1299-61 diazePAM (VALIUM) injection 5 mg [[id number]] Ordering Provider: Frank Dugan MD Status: Completed (Past End Date/Time) Ordered On: 05/04/21951 Starts/Ends: 05/04/210 - 05/04/2153 Dose (Remaining/Total): 5 mg (0/1) Route: intravenous Frequency: Once Rate/Duration: -- / 1 Minutes Timestamps Action Dose / Duration Route Other Information 05/04/21951 Given 5 mg 1 Minutes intravenous Performed by: Tereza Encinas RN lidocaine (GLYDO) 2 % jelly 200 mg [[id number]] Ordering Provider: Frank Dugan MD Status: Completed (Past End Date/Time) Ordered On: 05/04/21 102 Starts/Ends: 05/04/21 1100 - 05/04/211118 Dose (Remaining/Total): 10 mL (0/1) Route: urethral Frequency: Once Rate/Duration: -- / -- Timestamps Action Dose Route Other Information 05/04/211118 Given 200 mg urethral Performed by: Tereza Encinas RN Scanned Package: [address]-1 electrolyte-A (PLASMA-LYTE) bolus [[id number]] Ordering Provider: Rhina Granados MD Status: Completed (Past End Date/Time) Ordered On: 05/04/211454 Frequency: Continuous PRN Timestamps Action Dose Route / Site Other Information 05/04/211454 New Bag 1,000 mL irrigation Surgical Site Performed by: Rhina Granados MD Documented by: Jess Hanley, DEEPIKA sodium chloride 0.9% flush 0.5-20 mL [[id number]] Ordering Provider: Rhina Granados MD Status: Verified Ordered On: 05/04/212112 Start: 05/04/212199 Dose (Remaining/Total): 0.5-20 mL (--/--) Route: intra-catheter Frequency: Every 8 hours scheduled Rate/Duration: -- / -- Admin Instructions: Flush volume based on line type and size. Timestamps Action Dose Route Other Information 05/15/21 0654 Given 10 mL intra-catheter Performed by: Gabino Orantes RN Scanned Package: [id number] albumin 5 % bottle 25 g [[id number]] Ordering Provider: Rhina Granados MD Status: Completed (Past End Date/Time) Ordered On: 05/04/212112 Starts/Ends: 05/04/212144 - 05/04/212144 Dose (Remaining/Total): 25 g (0/1) Route: intravenous Frequency: Once Rate/Duration: -- / -- Timestamps Action Dose Route Other Information 05/04/212144 Given 25 g intravenous Performed by: Betty Rogers RN Scanned Package: [address]-1 docusate sodium (COLACE) capsule 100 mg [[id number]] Ordering Provider: Rhina Granados MD Status: Dispensed Ordered On: 05/04/212112 Start: 05/05/21 0900 Dose (Remaining/Total): 100 mg (--/--) Route: oral Frequency: 2 times daily Rate/Duration: -- / -- Admin Instructions: If able to swallow medications. Hold for diarrhea. Timestamps Action Dose Route Other Information 05/15/21 0944 Given 100 mg oral Performed by: Charo Girard RN Scanned Package: 2428-9647-03 vancomycin 1500 mg/250 mL in sodium chloride 0.9% (premix) 1,500 mg [[id number]] Ordering Provider: Rhina Granados MD Status: Completed [...] Dose / Duration Route Other Information 05/06/21 021 New Bag 1,500 mg 90 Minutes intravenous Performed by: Vanessa Holt RN Scanned Package: 60256-189-42, 0061-9902-95 magnesium sulfate 2 g/50 mL in water (premix) 2 g [[id number]] Ordering Provider: Rhina Granados MD Status: Completed (Past End Date/Time) Ordered On: 05/04/212140 Starts/Ends: 05/04/212214 - 05/04/21 230 Dose (Remaining/Total): 2 g (0/1) Route: intravenous Frequency: Once Rate/Duration: -- / 60 Minutes Timestamps Action Dose / Duration Route Other Information 05/04/212199 New Bag 2 g 60 Minutes intravenous Performed by: eBtty Rogers RN Scanned Package: 83489-690-58 calcium gluconate 2 g/100 mL in sodium chloride (premix) solution 2 g [[id number]] Ordering Provider: Rhina Granados MD Status: Completed (Past End Date/Time) Ordered On: 05/04/212145 Starts/Ends: 05/04/212229 - 05/05/21 002 Dose (Remaining/Total): 2 g (0/1) Route: intravenous Frequency: Once Rate/Duration: -- / 60 Minutes Admin Instructions: Room temperature only Timestamps Action Dose / Duration Route Other Information 05/04/212322 New Bag 2 g 60 Minutes intravenous Performed by: Betty Rogers RN Scanned Package: 45780-015-26 calcium gluconate 2 g/100 mL in sodium chloride (premix) solution 2 g [[id number]] Ordering Provider: Rhina Granados MD Status: Completed (Past End Date/Time) Ordered On: 05/05/21 0028 Starts/Ends: 05/05/2199 - 05/05/21 0226 Dose (Remaining/Total): 2 g (0/1) Route: intravenous Frequency: Once Rate/Duration: -- / 60 Minutes Admin Instructions: Room temperature only Timestamps Action Dose / Duration Route Other Information 05/05/21 0126 New Bag 2 g 60 Minutes intravenous Performed by: Betty Rogers RN Scanned Package: 85148-202-52 magnesium sulfate 2 g/50 mL in water (premix) 2 g [[id number]] Ordering Provider: Rhina Granados MD Status: Completed (Past End Date/Time) Ordered On: 05/05/21513 Starts/Ends: 05/05/21 0545 - 05/05/21 0718 Dose (Remaining/Total): 2 g (0/1) Route: intravenous Frequency: Once Rate/Duration: -- / 60 Minutes Timestamps Action Dose / Duration Route Other Information 05/05/21617 New Bag 2 g 60 Minutes intravenous Performed by: Betty Rogers RN Scanned Package: 63937-311-80 calcium gluconate 2 g/100 mL in sodium chloride (premix) solution 2 g [[id number]] Ordering Provider: Wally Aguilar DO Status: Completed (Past End Date/Time) Ordered On: 05/05/21 05 Starts/Ends: 05/05/21599 - 05/05/21 0718 Dose (Remaining/Total): 2 g (0/1) Route: intravenous Frequency: Once Rate/Duration: -- / 60 Minutes Admin Instructions: Room temperature only Timestamps Action Dose / Duration Route Other Information 05/05/21617 New Bag 2 g 60 Minutes intravenous Performed by: Betty Rogers RN Scanned Package: 21173-146-20 ketorolac (TORADOL) injection 30 mg [[id number]] Ordering Provider: Rhina Granados MD Status: Completed (Past End Date/Time) Ordered On: 05/05/211753 Starts/Ends: 05/05/211829 - 05/06/21 115 Dose (Remaining/Total): 30 mg (0/4) Route: intravenous Frequency: Every 6 hours Rate/Duration: -- / -- Admin Instructions: For Adult IV push, administer over 15 seconds Line Med Link Info Comment Introducer 05/04/21 Right Internal jugular 05/05/211837 by Yecenia Michaels RN -- Timestamps Action Dose Route Other Information 05/06/21 115 Given 30 mg intravenous Performed by: Yecenia Michaels RN Scanned Package: 14381-924-63 sodium chloride 0.9% 0.9% infusion - ADS Override Pull [[id number]] Status: Completed (Past End Date/Time) Ordered On: 05/06/21907 Starts/Ends: 05/06/21907 - 05/06/21920 Dose (Remaining/Total): -- (0/1) Route: -- Frequency: -- Rate/Duration: -- / -- Admin Instructions: Yecenia Michaels: cabinet override Note to pharmacy: Yecenia Michaels: cabinet override Timestamps Action Dose Route / Site / Linked Line Other Information 05/06/21920 New Bag 500 mL -- Performed by: Yecenia Michaels RN Scanned Package: 9988-1130-95 fentaNYL (SUBLIMAZE) preservative free injection 50 mcg [[id number]] Ordering Provider: Rhina Granados MD Status: Completed (Past End Date/Time) Ordered On: 05/06/21 1124 Starts/Ends: 05/06/21 1200 - 05/06/211127 Dose (Remaining/Total): 50 mcg (0/1) Route: intravenous Frequency: Once Rate/Duration: -- / -- Timestamps Action Dose Route Other Information 05/06/21 112 Given 50 mcg intravenous Performed by: Yecenia Michaels RN Scanned Package: 88201-761-49 calcium gluconate 2 g/100 mL in sodium chloride (premix) solution 2 g [[id number]] Ordering Provider: Rhina Granados MD Status: Completed [...] Performed by: Yecenia Michaels RN Scanned Package: 07600-840-19 potassium chloride 40 mEq/100 mL in sterile water (premix) 40 mEq [[id number]] Ordering Provider: Rhina Granados MD Status: Completed (Past End Date/Time) Ordered On: 05/06/21 1444 Starts/Ends: 05/06/21 1515 - 05/06/21 1921 Dose (Remaining/Total): 40 mEq (0/1) Route: intravenous Frequency: Once Rate/Duration: 25 mL/hr / 4 Hours Admin Instructions: Central line only Line Med Link Info Comment Introducer 05/04/21 Right Internal jugular 05/06/21 1521 by Yecenia Michaels RN -- Timestamps Action Dose / Rate / Duration Route Other Information 05/06/21 1521 New Bag 40 mEq 25 mL/hr 4 Hours intravenous Performed by: Yecenia Michaels RN Scanned Package: 0923-3046-[address] (PROTONIX) extended release tablet 40 mg [[id number]] Ordering Provider: Rhina Granados MD Status: Dispensed Ordered On: 05/06/21 1456 Start: 05/07/21 0900 Dose (Remaining/Total): 40 mg (--/--) Route: oral Frequency: Daily Rate/Duration: -- / -- Admin Instructions: Do not crush, chew, cut, dissolve, open or otherwise manipulate tablet/capsule. Timestamps Action Dose Route Other Information 05/15/21 0945 Given 40 mg oral Performed by: Charo Girard RN Scanned Package: 81439-696-36 potassium chloride ER (KLOR-CON) extended release tablet 30 mEq [[id number]] Ordering Provider: Wally Aguilar DO Status: Completed (Past End Date/Time) Ordered On: 05/07/21 0550 Starts/Ends: 05/07/21 0630 - 05/07/21 1003 Dose (Remaining/Total): 30 mEq (0/2) Route: oral Frequency: Every 4 hours Rate/Duration: -- / -- Admin Instructions: Total dose = 60 mEq Do not crush, chew, cut, dissolve, open or otherwise manipulate tablet/capsule. Timestamps Action Dose Route Other Information 05/07/21 1003 Given 30 mEq oral Performed by: Romeo Nagel RN Scanned Package: 9634-9728-92, 6433-5368-20 magnesium sulfate 2 g/50 mL in water (premix) 2 g [[id number]] Ordering Provider: Wally Aguilar DO Status: Completed (Past End Date/Time) Ordered On: 05/07/21 0551 Starts/Ends: 05/07/21 0630 - 05/07/21 0726 Dose (Remaining/Total): 2 g (0/1) Route: intravenous Frequency: Once Rate/Duration: -- / 60 Minutes Line Med Link Info Comment Introducer 05/04/21 Right Internal jugular 05/07/21 06 by Paresh Tobias RN -- Timestamps Action Dose / Duration Route Other Information 05/07/21625 New Bag 2 g 60 Minutes intravenous Performed by: Paresh Tobias RN Scanned Package: 02546-269-27 enoxaparin (LOVENOX) syringe 40 mg [[id number]] Ordering Provider: Rhina Granaods MD Status: Dispensed Ordered On: 05/07/21 0805 Start: 05/07/21 2100 Dose (Remaining/Total): 40 mg (--/--) Route: subcutaneous Frequency: Daily (for enoxaparin) Rate/Duration: -- / -- Timestamps Action Dose Route / Site Other Information 05/10/21 2141 Given 40 mg subcutaneous Right Lower Abdomen Performed by: Devonte Ward RN Scanned Package: 71441-532-89 magnesium sulfate 2 g/50 mL in water (premix) 2 g [[id number]] Ordering Provider: Nimesh Evans MD Status: Completed (Past End Date/Time) Ordered On: 05/07/21 0810 Starts/Ends: 05/07/21 0845 - 05/07/21 1059 Dose (Remaining/Total): 2 g (0/1) Route: intravenous Frequency: Once Rate/Duration: -- / 60 Minutes Timestamps Action Dose / Duration Route Other Information 05/07/21 0959 New Bag 2 g 60 Minutes intravenous Performed by: Romeo Nagel RN Scanned Package: 14065-534-38 metOLazone (ZAROXOLYN) tablet 10 mg [[id number]] Ordering Provider: Laly Lopes MD Status: Completed (Past End Date/Time) Ordered On: 05/07/21822 Starts/Ends: 05/07/21899 - 05/07/21 0958 Dose (Remaining/Total): 10 mg (0/1) Route: oral Frequency: Once Rate/Duration: -- / -- Timestamps Action Dose Route Other Information 05/07/21957 Given 10 mg oral Performed by: Romeo Nagel RN Scanned Package: 1741-3744-06 atorvastatin (LIPITOR) tablet 80 mg [[id number]] Ordering Provider: Rhina Granados MD Status: Dispensed Ordered On: 05/07/21 1001 Start: 05/07/21 1000 Dose (Remaining/Total): 80 mg (--/--) Route: oral Frequency: Nightly Rate/Duration: -- / -- Timestamps Action Dose Route Other Information 05/14/212207 Given 80 mg oral Performed by: Gabino Orantes RN Scanned Package: 0694-7420-61 sodium chloride 0.9% 0.9% infusion - ADS Override Pull [[id number]] Status: Completed (Past End Date/Time) Ordered On: [...] g/50 mL in water (premix) 2 g [[id number]] Ordering Provider: Nimesh Evans MD Status: Completed (Past End Date/Time) Ordered On: 05/08/21 0802 Starts/Ends: 05/08/21 0845 - 05/08/21 0950 Dose (Remaining/Total): 2 g (0/1) Route: intravenous Frequency: Once Rate/Duration: -- / 60 Minutes Timestamps Action Dose / Duration Route Other Information 05/08/21 0850 New Bag 2 g 60 Minutes intravenous Performed by: Romeo Nagel RN Scanned Package: 17833-686-14 guaiFENesin ER (MUCINEX) extended release tablet 600 mg [[id number]] Ordering Provider: Tiana Spence NP Status: Dispensed Ordered On: 05/08/21 1621 Start: 05/08/21 2100 Dose (Remaining/Total): 600 mg (--/--) Route: oral Frequency: 2 times daily Rate/Duration: -- / -- Admin Instructions: Do not crush, chew, cut, dissolve, open or otherwise manipulate tablet/capsule. Timestamps Action Dose Route Other Information 05/15/21 0944 Given 600 mg oral Performed by: Charo Girard RN Scanned Package: 5616-9112-62 albuterol 2.5 mg /3 mL (0.083 %) nebulizer solution 2.5 mg [[id number]] Ordering Provider: Ralf Tomlinson MD Status: Dispensed Ordered On: 05/09/21 0505 Start: 05/09/21 0515 Dose (Remaining/Total): 2.5 mg (--/--) Route: nebulization Frequency: Every 4 hours PRN (correspondence transcriber) Rate/Duration: -- / -- (No admins scheduled or recorded for this medication) metOLazone (ZAROXOLYN) tablet 10 mg [[id number]] Ordering Provider: Rhina Granados MD Status: Completed (Past End Date/Time) Ordered On: 05/09/21 0913 Starts/Ends: 05/09/21 0945 - 05/09/21 1132 Dose (Remaining/Total): 10 mg (0/1) Route: oral Frequency: Once Rate/Duration: -- / -- Timestamps Action Dose Route Other Information 05/09/21 1132 Given 10 mg oral Performed by: Hyacinth Hurt RN Scanned Package: 2385-5336-45 acetaminophen (TYLENOL) tablet 650 mg [[id number]] Ordering Provider: Eleonora Duarte NP Status: Dispensed Ordered On: 05/09/21 0915 Start: 05/09/21 0915 Dose (Remaining/Total): 650 mg (--/--) Route: oral Frequency: Every 6 hours PRN Rate/Duration: -- / -- Timestamps Action Dose Route Other Information 05/14/21 2231 Given 650 mg oral Performed by: Gabino Orantes RN Scanned Package: 82760-478-46, 53551-499-86 al & mag hydroxide vyavmiwpddf-lzadudgeltepzix-eofyvvjai-nystatin (MAGIC MOUTHWASH) suspension --1- [[id number]] Ordering Provider: Tiana Spence NP Status: Verified Ordered On: 05/09/211114 Start: 05/09/211113 Dose (Remaining/Total): 20 mL (--/--) Route: swish & spit Frequency: Every 4 hours PRN Rate/Duration: -- / -- Timestamps Action Dose Route Other Information 05/12/21 1457 Given 20 mL swish & spit Performed by: Cale Bender RN polyethylene glycol (MIRALAX) packet 17 g [[id number]] Ordering Provider: Rhina Granados MD Status: Dispensed Ordered On: 05/09/21 112 Start: 05/09/212099 Dose (Remaining/Total): 17 g (--/--) Route: oral Frequency: 2 times daily Rate/Duration: -- / -- Timestamps Action Dose Route Other Information 05/15/21 0949 Given 17 g oral Performed by: Charo Girard RN Scanned Package: 06281-195-11 albumin 5 % bottle 25 g [[id number]] Ordering Provider: Rhina Granados MD Status: Completed (Past End Date/Time) Ordered On: 05/10/21 0553 Starts/Ends: 05/10/21629 - 05/10/21 06 Dose (Remaining/Total): 25 g [...] -- Timestamps Action Dose Route Other Information 05/10/21 06 Given 25 g intravenous Performed by: Devonte Ward RN Scanned Package: [address]-9 piperacillin-tazobactam (ZOSYN) 3.375 g in sodium chloride 0.9% 100 mL IVPB [[id number]] Ordering Provider: Eleonora Duarte NP Status: Dispensed [...] Performed by: Gabino Orantes RN Scanned Package: 6154-4676-17, 84272-238-09 potassium chloride ER (KLOR-CON) extended release tablet 20 mEq [[id number]] Ordering Provider: Eleonora Duarte NP Status: Dispensed [...] RN aspirin enteric coated tablet 81 mg [[id number]] Ordering Provider: Varsha Crowder NP Status: Dispensed Ordered On: 05/11/21 1117 Start: 05/12/21 0900 Dose (Remaining/Total): 81 mg (--/--) Route: oral Frequency: Daily Rate/Duration: -- / -- Admin Instructions: Do not crush, chew, cut, dissolve, open or otherwise manipulate tablet/capsule. Timestamps Action Dose Route Other Information 05/15/21 0945 Given 81 mg oral Performed by: Charo Girard RN Scanned Package: 40696-664-67 dextrose oral liquid liquid 15 g [[id number]] Ordering Provider: Anibal Lara MD Status: Verified [...] medication) dextrose (D10W) 10% bolus 250 mL [[id number]] Ordering Provider: Anibal Lara MD Status: Verified Ordered On: 05/11/211134 Start: 05/11/211133 Dose (Remaining/Total): 250 mL (--/--) Route: intravenous Frequency: Every 15 min PRN Rate/Duration: 1,000 mL/hr / 15 Minutes Admin Instructions: After treatment for hypoglycemia, recheck BG followed by treatment every 15 minutes until the BG is greater than 100 mg/dL. Then check BG 1 hour post treatment. If BG is less [id number] mg/dL, repeat Q15 minute BG checks and treatment. Call MD for each episode of hypoglycemia. (No admins scheduled or recorded for this medication) glucagon injection 1 mg [[id number]] Ordering Provider: Anibal Lara MD Status: Verified [...] (HumaLOG, ADMELOG) 100 unit/mL injection 0-10 Units [[id number]] Ordering Provider: Anibal Lara MD Status: Verified Ordered On: 05/11/211134 Start: 05/11/21 1215 Dose (Remaining/Total): 0-10 Units (--/--) Route: subcutaneous [...] Performed by: Samantha Heaton RN Scanned Package: 7680-9293-36 insulin lispro (HumaLOG, ADMELOG) 100 unit/mL injection 0-5 Units [[id number]] Ordering Provider: Anibal Lara MD Status: Verified Ordered On: 05/11/211134 Start: 05/11/212099 Dose (Remaining/Total): 0-5 Units (--/--) Route: subcutaneous [...] Performed by: Marcel López RN Scanned Package: 3593-0405-88 acetaminophen (TYLENOL) tablet 1,000 mg [[id number]] Ordering Provider: Robby Suárez MD Status: Dispensed (Past End Date/Time) Ordered On: 05/12/21 0644 Starts/Ends: 05/12/21 0715 - 05/13/21 0715 Dose (Remaining/Total): 1,000 mg (06/20) Route: oral Frequency: Once Rate/Duration: -- / -- (No admins scheduled or recorded for this medication) QUEtiapine (SEROquel) tablet 50 mg [[id number]] Ordering Provider: Laly Lopes MD Status: Completed (Past End Date/Time) Ordered On: 05/12/21 0259 Starts/Ends: 05/12/21 0330 - 05/12/21 0305 Dose (Remaining/Total): 50 mg (0) Route: oral Frequency: Once Rate/Duration: -- / -- Timestamps Action Dose Route Other Information 05/12/21 0305 Given 50 mg oral Performed by: Natalie Mayer RN Scanned Package: 3757-5038-70 QUEtiapine (SEROquel) tablet 25 mg [[id number]] Ordering Provider: Varsha Crowder NP Status: Dispensed Ordered On: 05/12/21 1058 Start: 05/13/21 0900 Dose (Remaining/Total): 25 mg (--/--) Route: oral Frequency: Daily Rate/Duration: -- / -- Timestamps Action Dose Route Other Information 05/15/21 0948 Given 25 mg oral Performed by: Charo Girard RN Scanned Package: [id number] QUEtiapine (SEROquel) tablet 50 mg [[id number]] Ordering Provider: Varsha Crowder NP Status: Dispensed Ordered On: 05/12/21 1059 Start: 05/12/212099 Dose (Remaining/Total): 50 mg (--/--) Route: oral Frequency: Nightly Rate/Duration: -- / -- Timestamps Action Dose Route Other Information 05/14/212208 Given 50 mg oral Performed by: Gabino Orantes RN Scanned Package: [id number] haloperidol (HALDOL) injection 2 mg [[id number]] Ordering Provider: Varsha Crowder NP Status: Verified Ordered On: 05/12/211638 Start: 05/12/211637 Dose (Remaining/Total): 2 mg (--/--) Route: intramuscular Frequency: Every 8 hours PRN Rate/Duration: -- / -- Admin Instructions: If administered IV push, administer over 5 min for adults (No admins scheduled or recorded for this medication) insulin glargine (LANTUS, SEMGLEE) 100 unit/mL injection 24 Units [[id number]] Ordering Provider: Sixto Fish MD Status: Verified Ordered On: 05/13/211733 Start: 05/13/212099 Dose (Remaining/Total): 24 Units (--/--) Route: subcutaneous Frequency: Nightly Rate/Duration: -- / -- Admin Instructions: Do not hold if NPO. Do not mix with other insulins Timestamps Action Dose Route / Site Other Information 05/14/212217 Given 24 Units subcutaneous Left Lower Abdomen Performed by: Gabino Orantes RN Scanned Package: [id number] insulin lispro (HumaLOG, ADMELOG) 100 unit/mL injection 10 Units [[id number]] Ordering Provider: Sixto Fish MD Status: Verified Ordered On: 05/13/211734 Start: 05/14/21 08 Dose (Remaining/Total): 10 Units (--/--) Route: subcutaneous [...] Performed by: Samantha Heaton RN Scanned Package: [id number] metoprolol tartrate (LOPRESSOR) immediate release tablet 12.5 mg [[id number]] Ordering Provider: Eleonora Duarte NP Status: Dispensed Ordered On: 05/14/21 1043 Start: 05/14/21 2100 Dose (Remaining/Total): 12.5 mg (--/--) Route: oral Frequency: 2 times daily Rate/Duration: -- / -- Admin Instructions: HOLD FOR HR <60 and systolic <110 (No admins scheduled or recorded for this medication) furosemide (LASIX) 10 mg/mL injection 40 mg [[id number]] Ordering Provider: Laly Lopes MD Status: Verified Ordered On: 05/15/21921 Start: 05/15/21 1600 Dose (Remaining/Total): 40 mg [...] ER (KLOR-CON) extended release tablet 40 mEq [[id number]] Ordering Provider: Tiana Spence NP Status: Completed (Past End Date/Time) Ordered On: 05/15/21940 Starts/Ends: 05/15/21 101 - 05/15/21947 Dose (Remaining/Total): 40 mEq (0/1) Route: oral Frequency: Once Rate/Duration: -- / -- Admin Instructions: GIVEN IN ADDITION TO SCHEDULED KCL Do not crush, chew, cut, dissolve, open orotherwise manipulate tablet/capsule. Timestamps Action Dose Route Other Information 11/26/21 0948 Given 40 mEq oral Performed by: Charo Girard RN Scanned Package: [id number], [id number] magnesium sulfate 2 g/50 mL in water (premix) 2 g [[id number]] Ordering Provider: Tiana Spence NP Status: Completed (Past End Date/Time) Ordered On: 05/15/21940 Starts/Ends: 05/15/21 1015 - 05/15/21 1048 Dose (Remaining/Total): 2 g (0/1) Route: intravenous Frequency: Once Rate/Duration: -- / 60 Minutes Line Med Link Info Comment Introducer 05/04/21 Right Internal jugular 05/15/21947 by Charo Girard RN -- Timestamps Action Dose / Duration Route Other Information 05/15/21947 New Bag 2 g 60 Minutes intravenous Performed by: Charo Girard RN Scanned Package: [id number] , Wound Info Only Patient Lines/Drains/Airways Status Active Wound / Pressure ulcer / Jerry / Negative Pressure Wound None , Vitals Info Only Vital Signs Report 05/14 0659 05/15 0700 05/15 1110 Most Recent Temp (??C) 36.4 - 37 37 37 (98.6) 05/15 741 Pulse 74 - 87 93 93 05/15 741 Resp 11 - 33 18 18 05/15 0741 SpO2 (%) 88 - 97 90 90 05/15 0741 BP 80/57 - 117/60 105/68 105/68 05/15 0741 MAP (mmHg) 60 - 75 81 81 05/15 0741 , Oxygen Info Only Default Flowsheet [...] Therapy/Pulse Ox SpO2 64 % 99 % GER ED * Plan of Care - Gabino Orantes [...] perfusion and functioning will improve Outcome: Progressing GER ED * Plan of Care - Samantha Heaton RN - 05/14/2021 3:36 PM CST Goals: Clinical Goals for the Shift: maintain NPO for possible procedure, comfort, safety, monitor breathing and V/S Summary: GER ED * Op Note - Braulio Ortega MD [...] which was fulgurated and hemostasis obtained. Twenty-two Faroese [address] Osorio catheter PROCEDURE DETAILS: Patient [...] after breaking with a resectoscope loop 26 Faroese. Care was taken not to perforate the bladder.After extensive irrigation with the Ellik evacuator all the clots were removed. Ureteral orifices were normal bladder showed no evidence of any tumor. Bleeding was seen from the resection site approximately 3-4 cm with left of the ureteral orifice. This was fulgurated with the loop electrode. Hemostasis was confirmed. After this we placed a 22 Faroese hematuria catheter with 10 mL in the [...] and directly participated in the entire procedure. GER ED * Plan of Care - Marcel López RN - 05/14/2021 1:34 AM CST Problem: Health Behavior: Goal: Understanding of discharge needs will improve Outcome: Progressing Problem: Activity: Goal: Activity Intolerance will improve Outcome: Progressing Problem: Cardiac: Goal: Ability to achieve and maintain adequate cardiopulmonary perfusion will improve Outcome: Progressing Goals: Clinical Goals for the Shift: maintain NPO for CT Abdomen Summary: GER ED * Plan of Care - Samantha Heaton RN - 05/13/2021 4:50 PM CST Goals: Clinical Goals for the Shift: maintain NPO for CT Abdomen Summary: GER ED * Plan of Care - Apryl Killian MSW - 05/13/2021 10:34 AM CST DONOR RECRUITMENT MANAGER spoke with [facility] this morning in regards to referral. [facility] states to DONOR RECRUITMENT MANAGER they are not in network with pt.'s insurance. DONOR RECRUITMENT MANAGER sent a referral to [facility]. DONOR RECRUITMENT MANAGER will f/u. GER ED * Plan of Care - Natalie Mayer [...] the Shift: VSS, comfort, safety, cardiac monitoring, GER ED * Plan of Care - Apryl Killian MSW - 05/12/2021 2:44 PM CST DONOR RECRUITMENT MANAGER called pt.'s insurance ([facility] ) to get home health care referrals on pt. [facility] ([facility]) and [facility] are in network with pt.'s insurance. DONOR RECRUITMENT MANAGER sent home health care referrals to [facility] care. DONOR RECRUITMENT MANAGER will f/u. GER ED * Plan of Care - Cale Bender [...] perfusion and functioning will improve Outcome: Progressing GER ED * Plan of Care - Apryl Killian MSW - 05/11/2021 4:11 PM CST [facility] and [facility] are not able to accept pt. For home health due to out of service area for pt. DONOR RECRUITMENT MANAGER will f/u. GER ED * Plan of Care - Amelia Hastings RN - 05/11/2021 3:31 PM CST Home Health Consult received. [facility] Home Health Agency unable to accept due to inability to timely staff patient. MELISSA Evans notified. GER ED * Plan of Care - Apryl Killian MSW - 05/11/2021 2:35 PM CST DONOR RECRUITMENT MANAGER met with pt. This afternoon to discuss goals of care for pt. DONOR RECRUITMENT MANAGER voiced PT and OT are recommending SNF when DC. Pt. States he does not want SNF at all and wants to return home with his (Geno when DC. DONOR RECRUITMENT MANAGER spoke with pt.'s (Geno ) this afternoon to discuss goals of care for pt. Geno states to DONOR RECRUITMENT MANAGER she is agreeable for pt. To come home when DC. Lora states she is not working andher and her 2 sons will be able to provide care for pt. When DC. Lora states they are working on getting state aide. Geno voiced pt. Does not have a PCP either. DONOR RECRUITMENT MANAGER will send referrals on pt. For home health care. GER ED * Plan of Care - Sandee Paez, PT - 05/11/2021 1:44 PM CST Progressing very slowly towards prior set goals. GER ED * Plan of Care - Miranda Garza RN - 05/11/2021 8:20 AM MANAGER ED CM gave handoff report to Bev POE CM on 9th Floor. Miranda Garza CHILD WELFARE MANAGER Rn Telemetry [phone] GER ED * Plan of Care - Devonte Ward RN - 05/11/2021 4:08 AM CST Goals: Clinical Goals for the Shift: vss; decrease in bloody urine; increase in activity Summary: care plan updated in cares/chantely GER ED * Plan of Care - Charo Girard [...] pain tx and managed with prn rx. GER ED * Plan of Care - Devonte Ward RN - 05/10/2021 2:57 AM CST Goals: Clinical Goals for the Shift: vss; normalizing routine labs and blood sugars; increase in activity Summary: care plan updated in cares and safety GER ED * Plan of Care - Kirby Duque [...] formal employer. From this SW knowledge, the [facility] does NOT have a public short-term [...] to Patient. RN appreciative. Kirby Duque LMSW Rn Practitioner - Stepdown/ ICU TUESDAY IN-HOUSE SW 05/09/2021 [facility] Case Management Dept [phone] (Direct#) [phone] (Stepdown fax#) [phone] (ICU fax#) GER ED * Plan of Care - Aimee Cardenas [...] perfusion and functioning will improve Outcome: Progressing GER ED * Plan of Care - Sheron Adams COTA - 05/08/2021 12:21 PM MANAGER ED Problem: OT Misc Goal: OT STG - [...] Outcome: Progressing Note: A O X 3 GER ED * Plan of Care - Romeo Nagel RN - 05/08/2021 10:28 AM CST Goals: Clinical Goals for the Shift: discussed the plan of care for the day Summary: Pt up in the chair. Pt ambulated in ornelas. VSS. Pt transferring to 9T today GER ED * Plan of Care - Qing Fernandez [...] protocol. Wean FiO2 to maintain SpO2 >92%. GER ED * Plan of Care - Janet Beltran [...] pt score to provide current updraft therapy. GER ED * Plan of Care - Tiana Ornelas [...] the Shift: Patient will remain hemodynamically stable GER ED * Plan of Care - Octavia Daniel [...] perfusion and functioning will improve Outcome: Progressing GER ED * Plan of Care - Regina Garcia [...] protocol. Wean FiO2 to maintain SpO2 >92%. GER ED * Plan of Care - Colton Monte RN - 05/07/2021 1:53 AM CST Problem: Cardiac: Goal: Ability to achieve and maintain adequate cardiopulmonary perfusion will improve Outcome: Progressing Goal: Hemodynamic stability will improve Outcome: Progressing Goal: Will show no evidence of cardiac arrhythmias Outcome: Progressing Problem: Lack of Knowledge: Goal: Verbalization of understanding the information provided will improve Outcome: Progressing GER ED * Plan of Care - Janet Beltran [...] pt score to provide current updraft therapy. GER ED * Plan of Care - Yecenia Michaels [...] after bedrest over, weaning O2 as tolerated GER ED * Plan of Care - Regina Garcia [...] pt score to provide current updraft therapy. GER ED * Plan of Care - Vanessa Holt [...] and functioning will improve Outcome: Not Progressing GER ED * Plan of Care - Janet Beltran RRT - 05/05/2021 10:34 [...] pt score to provide current updraft therapy. GER ED * Plan of Care - Yecenia Michaels [...] am and is on bipap doing well. GER ED * Plan of Care - Mone Lawrence [...] the Shift: wean drips, stable v/s Summary: GER ED * Plan of Care - Miranda Garza RN - 05/05/2021 11:37 AM MANAGER ED Patient address is [address] [place] [address]. Info sent to registration for correction. Miranda Garza RN BSN Rn Telemetry [phone] GER ED * Plan of Care - Samra Kearns [...] pt score to provide current updraft therapy. GER ED * Plan of Care - Stefania Gallegos [...] need for secretion clearance and airway patency. GER ED * Plan of Care - Betty Rogers RN - 05/05/2021 3:31 AM CST Goals: Recover from cabg x 4 wean pressors and inotrops monitor bleeding Summary: dobutrex off levo at 0.12 3 prbc given will stay on vent GER ED * Plan of Care - Betty Rogers RN - 05/04/2021 5:42 PM CST Goals: Clinical Goals for the Shift: CBI, comfort, surgery later today Summary: in or for cabg x 2 will return with iabp and paln to extubate and wean gtts GER ED * Plan of Care - Miranda Garza RN - 05/04/2021 3:40 PM MANAGER ED Attempted assessment. Patient off floor in surgery. Will continue to follow and will see patient tomorrow. Miranda Garza RN BSN Rn Telemetry [phone] GER ED * Op Note - Rhina Granados MD - 05/04/2021 2:25 PM CST Op Note: CABG Patient: Deepak Alvarado Service Date: 05/04/2021 : 1960 Admit Date: 05/01/2021 SURGEON Rhina Granados MD SOFTWARE RELEASE ENGINEER MD Marianne PREOPERATIVE DIAGNOSIS Coronary artery disease POSTOPERATIVE DIAGNOSIS Coronary artery disease PROCEDURE PERFORMED Coronary artery bypass grafting x4, placement of left QUINN to the LAD, saphenous vein graft to the diagonal artery and obtuse marginal in a sequential fashion, saphenous vein graft to the PDA ANESTHESIA General. INDICATIONS This is a 60 y.o. male who presented with ST-elevation TX and was found to have occlusion of [...] of good size and quality as a [id number] anastomosis. The distal end of this vein [...] holes. This included Gelfoam and thrombin, FloSeal, [place] patch, Tisseel, and Eh. After all these [...] a dose within 24 hours of surgery. GER ED * Brief Op Note - Laly Lopes MD - 05/04/2021 2:25 PM CST Operative Progress Note Surgical Team: Surgeon(s) and Role: * Rhina Granados MD - Primary * Timothy Fletcher MD - Fellow Anesthesiologist: Can Jones MD Anesthesiologist Cold Working Supervisor: Robert Duran AA Funeral Service Apprentice: Lc Roger Trains Service Conductor: Michaela Castro RN Scrub: Milagros Sharp RN VALUE ADVISOR: Leanne Escobar CRNFA; Rosamaria Cleaning RN; Ewdige Magana CRNFA FLOAT: Jess Hanley RN DATE [...] Rhina Granados MD at 05/05/2021 11:33 AM MANAGER ED GER ED GER ED * Provider Query - Frank Dugan MD [...] and transurethral resection of bladder tumor at [facility] 05/01/2021 22:19 05/02/2021 04:43 05/02/2021 15:12 [...] of the patient???s medical record. Thank you, Karolina Leung RN, BSN Clinical Maternal Child Nurse [employer] Teams: Karolina Leung PerfectServe: Karolina Leung [facility] NAME: Karolina Leung Email: [email or web address] GER ED * Provider Query - Frank Dugan MD [...] of the patient???s medical record. Thank you, Karolina Leung RN, BSN Clinical Maternal Child Nurse [employer] Teams: Karolina Leung PerfectServe: Karolina Leung [facility] NAME: Karolina Leung Email: [email or web address] GER ED * Significant Event - Lise Suggs NP - 05/04/2021 8:55 AM CST Urology Procedure Progress Note Subjective Deepak Alvarado is a 60 y.o. male that we are seeing for gross hematuria. He has a 20 Faroese Osorio catheter that is clotted. Lab/Radiology/Diagnostic Review: [...] noted to be thick and clotted. 20 Faroese catheter that was intact. Unable to aspirate the blood clot. Betadine placed and the balloon was advanced. I hand irrigated with 250 cc of saline.to pink tinged urine on return. I was able to aspirate small - moderate clots. CBI started at a slow rate. Patient tolerated the procedure well. Assessment /Plan Principal Problem: ST elevation myocardial infarction (STEMI) ([facility]) 60 y.o. male with gross hematuria with clot retention. Titrate CBI to keep the urinary output lightpink to clear. May need to irrigate with 60 mL of saline as needed for occlusion. Dr Trejo made aware and will evaluate the patient later this morning. Please call if you have any questions. Lise Suggs NP Urology Division [facility] Office [phone] 05/04/2021 8:55 AM GER ED GER ED GER ED * Plan of Care - Betty Rogers [...] and injury in home environment Outcome: Progressing GER ED * Plan of Care - Jessica Adams RN - 05/02/2021 11:08 PM CST Goals: RN maintain comfort and safety with balloon pump Summary: pt complaint with bed rest GER ED * Plan of Care - Jessica Adams RN - 05/02/2021 3:24 AM CST Goals: RN maintain comfort and safety with balloon pump Summary: pt complaint with bed rest GER ED documented in this encounter Plan of Treatment Pending Results Name Type Priority Associated Diagnoses Date /Time Cardiac Catheterization Cardiac Cath Routine ST elevation myocardial infarction (STEMI), unspecified artery (HCC) 05/01/2021 6:40 PM MANAGER ED Scheduled Orders Name Type Priority Associated Diagnoses Orde r Schedule ECG [address] elevation myocardial infarction involving left anterior descending (LAD) coronary artery (HCC) Once for 1 Occurrences starting 05/05/2021 until 05/05/2021 documented as of this encounter Procedures Procedure Name Priority Date/Time Associated Diagnosis Comments POCT GLUCOSE DEVICE Routine 06/03/2021 12:21 PM MANAGER ED HOME O2 EVAL (DESATURATION SCREEN) Routine 06/03/2021 8:45 AM MANAGER ED POCT GLUCOSE DEVICE Routine 06/03/2021 6 :33 AM MANAGER ED EGFR Routine 06/03/2021 3:04 AM MANAGER ED CBC WITHOUT DIFFERENTIAL Routine 06/03/2021 3:04 AM MANAGER ED PHOSPHORUS Routine 06/03/2021 3:04 AM MANAGER ED MAGNESIUM Routine 06/03/2021 3:04 AM MANAGER ED BASIC METABOLIC PANEL Routine 06/03/2021 3:04 AM MANAGER ED POCT GLUCOSE DEVICE Routine 06/02/2021 8 :34 PM MANAGER ED POCT GLUCOSE DEVICE Routine 06/02/2021 4 :21 PM MANAGER ED POCT GLUCOSE DEVICE Routine 06/02/2021 11:37 AM MANAGER ED POCT GLUCOSE DEVICE Routine 06/02/2021 6 :46 AM MANAGER ED EGFR Routine 06/02/2021 5:37 AM MANAGER ED CBC WITHOUT DIFFERENTIAL Routine 06/02/2021 5:37 AM MANAGER ED PHOSPHORUS Routine 06/02/2021 5:37 AM MANAGER ED MAGNESIUM Routine 06/02/2021 5:37 AM MANAGER ED VANCOMYCIN LEVEL TROUGH Timed 06/02/2021 5:37 AM MANAGER ED BASIC METABOLIC PANEL Routine 06/02/2021 5:37 AM MANAGER ED POCT GLUCOSE DEVICE Routine 06/02/2021 2 :07 AM MANAGER ED POCT GLUCOSE DEVICE Routine 06/01/2021 9 :18 PM MANAGER ED POCT GLUCOSE DEVICE Routine 06/01/2021 5 :38 PM MANAGER ED PEP THERAPY Routine 06/01/2021 3:00 PM MANAGER ED PEP THERAPY Routine 06/01/2021 3:00 PM MANAGER ED POCT GLUCOSE DEVICE Routine 06/01/2021 11:45 AM MANAGER ED EGFR Routine 06/01/2021 11:32 AM MANAGER ED CBC WITHOUT DIFFERENTIAL Routine 06/01/2021 11:32 AM MANAGER ED PHOSPHORUS Routine 06/01/2021 11:32 AM MANAGER ED MAGNESIUM Routine 06/01/2021 11:32 AM MANAGER ED BASIC METABOLIC PANEL Routine 06/01/2021 11:32 AM MANAGER ED US VEIN DUPLEX LOWER EXTREMITY BILATERAL COMPLETE IP Routine 06/01/2021 9:20 AM MANAGER ED PEP THERAPY Routine 06/01/2021 7:00 AM MANAGER ED PEP THERAPY Routine 06/01/2021 7:00 AM MANAGER ED POCT GLUCOSE DEVICE Routine 06/01/2021 6 :30 AM MANAGER ED POCT GLUCOSE DEVICE Routine 06/01/2021 2 :52 AM MANAGER ED POCT GLUCOSE DEVICE Routine 05/31/2021 9 :47 PM MANAGER ED PEP THERAPY Routine 05/31/2021 7:00 PM MANAGER ED POCT GLUCOSE DEVICE Routine 05/31/2021 6 :05 PM MANAGER ED PEP THERAPY Routine 05/31/2021 3:00 PM MANAGER ED PEP THERAPY Routine 05/31/2021 3:00 PM MANAGER ED POCT GLUCOSE DEVICE Routine 05/31/2021 12:59 PM MANAGER ED PEP THERAPY Routine 05/31/2021 11:00 AM MANAGER ED PEP THERAPY Routine 05/31/2021 11:00 AM MANAGER ED POCT GLUCOSE DEVICE Routine 05/31/2021 8 :04 AM MANAGER ED PEP THERAPY Routine 05/31/2021 7:00 AM MANAGER ED PEP THERAPY Routine 05/31/2021 7:00 AM MANAGER ED XR CHEST 1 VIEW IP Routine 05/31/2021 6:39 AM MANAGER ED EGFR Routine 05/31/2021 5:39 AM MANAGER ED CBC WITHOUT DIFFERENTIAL Routine 05/31/2021 5:39 AM MANAGER ED PHOSPHORUS Routine 05/31/2021 5:39 AM MANAGER ED MAGNESIUM Routine 05/31/2021 5:39 AM MANAGER ED VANCOMYCIN LEVEL TROUGH Timed 05/31/2021 5:39 AM MANAGER ED BASIC METABOLIC PANEL Routine 05/31/2021 5:39 AM MANAGER ED POCT GLUCOSE DEVICE Routine 05/30/2021 8 :09 PM MANAGER ED CRITICAL CARE Routine 05/30/2021 8:[address] elevation myocardial infarction (STEMI), unspecified artery (HCC) PEP THERAPY Routine 05/30/2021 7:00 PM MANAGER ED PEP THERAPY Routine 05/30/2021 7:00 PM MANAGER ED POCT GLUCOSE DEVICE Routine 05/30/2021 5 :17 PM MANAGER ED PEP THERAPY Routine 05/30/2021 3:00 PM MANAGER ED PEP THERAPY Routine 05/30/2021 3:00 PM MANAGER ED POCT GLUCOSE DEVICE Routine 05/30/2021 12:08 PM MANAGER ED PEP THERAPY Routine 05/30/2021 11:00 AM MANAGER ED PEP THERAPY Routine 05/30/2021 11:00 AM MANAGER ED POCT GLUCOSE DEVICE Routine 05/30/2021 7 :54 AM MANAGER ED PEP THERAPY Routine 05/30/2021 7:00 AM MANAGER ED PEP THERAPY Routine 05/30/2021 7:00 AM MANAGER ED CRITICAL CARE Routine 05/30/2021 7:[address] elevation myocardial infarction (STEMI), unspecified artery (HCC) EGFR Routine 05/30/2021 4:05 AM MANAGER ED CBC WITHOUT DIFFERENTIAL Routine 05/30/2021 4:05 AM MANAGER ED PHOSPHORUS Routine 05/30/2021 4:05 AM MANAGER ED MAGNESIUM Routine 05/30/2021 4:05 AM MANAGER ED BASIC METABOLIC PANEL Routine 05/30/2021 4:05 AM MANAGER ED POCT GLUCOSE DEVICE Routine 05/29/2021 9 :43 PM MANAGER ED CRITICAL CARE Routine 05/29/2021 8:[address] elevation myocardial infarction (STEMI), unspecified artery (HCC) PEP THERAPY Routine 05/29/2021 7:00 PM MANAGER ED PEP THERAPY Routine 05/29/2021 7:00 PM MANAGER ED VANCOMYCIN LEVEL TROUGH Timed 05/29/2021 5:09 PM MANAGER ED POCT GLUCOSE DEVICE Routine 05/29/2021 4 :56 PM MANAGER ED PEP THERAPY Routine 05/29/2021 3:00 PM MANAGER ED PEP THERAPY Routine 05/29/2021 3:00 PM MANAGER ED BETA-HYDROXYBUTYRATE Routine 05/29/2021 2:42 PM MANAGER ED POCT GLUCOSE DEVICE Routine 05/29/2021 11:55 AM MANAGER ED PEP THERAPY Routine 05/29/2021 11:00 AM MANAGER ED PEP THERAPY Routine 05/29/2021 11:00 AM MANAGER ED POCT GLUCOSE DEVICE Routine 05/29/2021 8 :01 AM MANAGER ED PEP THERAPY Routine 05/29/2021 7:00 AM MANAGER ED PEP THERAPY Routine 05/29/2021 7:00 AM MANAGER ED CRITICAL CARE Routine 05/29/2021 7:00 AM MANAGER ED COVID Acute respiratory failure due to COVID-19 (CMS/HCC) (HCC) EGFR Routine 05/29/2021 5:28 AM MANAGER ED CBC WITHOUT DIFFERENTIAL Routine 05/29/2021 5:28 AM MANAGER ED PHOSPHORUS Routine 05/29/2021 5:28 AM MANAGER ED MAGNESIUM Routine 05/29/2021 5:28 AM MANAGER ED BASIC METABOLIC PANEL Routine 05/29/2021 5:28 AM MANAGER ED CRITICAL CARE Routine 05/28/2021 10:32 PM MANAGER ED Acute respiratory failure due to COVID-19 (CMS/HCC) (HCC) POCT GLUCOSE DEVICE Routine 05/28/2021 7 :55 PM MANAGER ED PEP THERAPY Routine 05/28/2021 7:00 PM MANAGER ED PEP THERAPY Routine 05/28/2021 7:00 PM MANAGER ED POCT GLUCOSE DEVICE Routine 05/28/2021 5 :47 PM MANAGER ED PEP THERAPY Routine 05/28/2021 3:00 PM MANAGER ED PEP THERAPY Routine 05/28/2021 3:00 PM MANAGER ED POCT GLUCOSE DEVICE Routine 05/28/2021 11:53 AM MANAGER ED CRITICAL CARE Routine 05/28/2021 11:04 AM MANAGER ED COVID Acute respiratory failure due to COVID-19 (CMS/HCC) (HCC) PEP THERAPY Routine 05/28/2021 11:00 AM MANAGER ED PEP THERAPY Routine 05/28/2021 11:00 AM MANAGER ED POCT GLUCOSE DEVICE Routine 05/28/2021 9 :49 AM MANAGER ED PEP THERAPY Routine 05/28/2021 7:00 AM MANAGER ED PEP THERAPY Routine 05/28/2021 7:00 AM MANAGER ED POCT GLUCOSE DEVICE Routine 05/28/2021 6 :42 AM MANAGER ED XR CHEST 1 VIEW IP Routine 05/28/2021 6:13 AM MANAGER ED POCT GLUCOSE DEVICE Routine 05/28/2021 4 :40 AM MANAGER ED EGFR Routine 05/28/2021 2:47 AM MANAGER ED CBC WITHOUT DIFFERENTIAL Routine 05/28/2021 2:47 AM MANAGER ED PHOSPHORUS Routine 05/28/2021 2:47 AM MANAGER ED MAGNESIUM Routine 05/28/2021 2:47 AM MANAGER ED VANCOMYCIN LEVEL TROUGH Timed 05/28/2021 2:47 AM MANAGER ED BASIC METABOLIC PANEL Routine 05/28/2021 2:47 AM MANAGER ED POCT GLUCOSE DEVICE Routine 05/28/2021 1 :22 AM MANAGER ED POCT GLUCOSE DEVICE Routine 05/27/2021 10:17 PM MANAGER ED CRITICAL CARE Routine 05/27/2021 8:35 PM MANAGER ED Acute respiratory failure due to COVID-19 (CMS/HCC) (HCC) POCT GLUCOSE DEVICE Routine 05/27/2021 5 :56 PM MANAGER ED CRITICAL CARE Routine 05/27/2021 2:44 PM MANAGER ED Acute respiratory failure due to COVID-19 (CMS/HCC) (HCC) POCT GLUCOSE DEVICE Routine 05/27/2021 12:19 PM MANAGER ED POCT GLUCOSE DEVICE Routine 05/27/2021 8 :11 AM MANAGER ED POCT GLUCOSE DEVICE Routine 05/27/2021 6 :47 AM MANAGER ED EGFR Routine 05/27/2021 6:40 AM MANAGER ED CBC WITHOUT DIFFERENTIAL Routine 05/27/2021 6:40 AM MANAGER ED PHOSPHORUS Routine 05/27/2021 6:40 AM MANAGER ED MAGNESIUM Routine 05/27/2021 6:40 AM MANAGER ED BASIC METABOLIC PANEL Routine 05/27/2021 6:40 AM MANAGER ED XR CHEST 1 VIEW IP Routine 05/27/2021 5:40 AM MANAGER ED POCT GLUCOSE DEVICE Routine 05/27/2021 12:41 AM MANAGER ED POCT GLUCOSE DEVICE Routine 05/26/2021 10:24 PM MANAGER ED CRITICAL CARE Routine 05/26/2021 9:59 PM MANAGER ED Chronic obstructive pulmonary disease, unspecified COPD type (HCC) Pneumonia due to COVID-19 virus Acute hypoxemic respiratory failure due to COVID-19 (CMS/HCC) (HCC) S/P CABG x 4 ST elevation myocardial infarction involving left circumflex coronary artery (HCC) POCT GLUCOSE DEVICE Routine 05/26/2021 5 :03 PM MANAGER ED CRITICAL CARE Routine 05/26/2021 4:[address] elevation myocardial infarction (STEMI), unspecified artery (HCC) COVID URINALYSIS AND REFLEX TO MICROSCOPIC STAT 05/26/2021 4:01 PM MANAGER ED STREP PNEUMONIAE AG, URINE Routine 05/26/2021 4:01 PM MANAGER ED LEGIONELLA ANTIGEN, URINE Routine 05/26/2021 4:01 PM MANAGER ED URINALYSIS, MICROSCOPIC ONLY STAT 05/26/2021 4:01 PM MANAGER ED BLOOD CULTURE STAT 05/26/2021 1:43 PM MANAGER ED BLOOD CULTURE STAT 05/26/2021 1:43 PM MANAGER ED MRSA ONLY (STAPHYLOCOCCUS AUREUS) PCR STAT 05/26/2021 1:31 PM MANAGER ED POCT GLUCOSE DEVICE Routine 05/26/2021 1 :19 PM MANAGER ED PNEUMONIA PCR Routine 05/26/2021 11:32 AM MANAGER ED PNEUMONIA PCR WITH AEROBIC CULTURE AND GRAM STAIN Routine 05/26/2021 11:32 AM MANAGER ED PEP THERAPY Routine 05/26/2021 10:21 AM MANAGER ED POCT GLUCOSE DEVICE Routine 05/26/2021 8 :42 AM MANAGER ED PEP THERAPY Routine 05/26/2021 7:00 AM MANAGER ED POCT GLUCOSE DEVICE Routine 05/26/2021 6 :32 AM MANAGER ED EGFR Routine 05/26/2021 6:23 AM MANAGER ED D-DIMER, QUANTITATIVE Routine 05/26/2021 6:23 AM MANAGER ED CBC WITHOUT DIFFERENTIAL Routine 05/26/2021 6:23 AM MANAGER ED CRP (ACUTE PHASE) Routine 05/26/2021 6:2 3 AM MANAGER ED PHOSPHORUS Routine 05/26/2021 6:23 AM MANAGER ED MAGNESIUM Routine 05/26/2021 6:23 AM MANAGER ED BASIC METABOLIC PANEL Routine 05/26/2021 6:23 AM MANAGER ED XR CHEST 1 VIEW IP Routine 05/26/2021 6:07 AM MANAGER ED POCT GLUCOSE DEVICE Routine 05/25/2021 11:59 PM MANAGER ED CRITICAL CARE Routine 05/25/2021 9:14 PM MANAGER ED Chronic obstructive pulmonary disease, unspecified COPD type (HCC) Pulmonary edema with congestive heart failure (CMS/HCC) (HCC) Pneumonia due to COVID-19 virus Acute hypoxemic respiratory failure due to COVID-19 (CMS/HCC) (HCC) S/P CABG x 4 POCT GLUCOSE DEVICE Routine 05/25/2021 8 :15 PM MANAGER ED POCT GLUCOSE DEVICE Routine 05/25/2021 5 :39 PM MANAGER ED CRITICAL CARE Routine 05/25/2021 4:[address] elevation myocardial infarction (STEMI), unspecified artery (HCC) COVID POCT GLUCOSE DEVICE Routine 05/25/2021 12:[address] CHEST PE W CONTRAST Critical/Life-T hreatening 05/25/2021 10:22 AM MANAGER ED BLOOD GAS, ARTERIAL STAT 05/25/2021 9 :51 AM MANAGER ED POCT GLUCOSE DEVICE Routine 05/25/2021 9 :20 AM MANAGER ED PEP THERAPY Routine 05/25/2021 8:55 AM MANAGER ED PEP THERAPY Routine 05/25/2021 8:55 AM MANAGER ED PEP THERAPY Routine 05/25/2021 8:55 AM MANAGER ED XR CHEST 1 VIEW IP Routine 05/25/2021 6:25 AM MANAGER ED EGFR Routine 05/25/2021 3:00 AM MANAGER ED CBC WITHOUT DIFFERENTIAL Routine 05/25/2021 3:00 AM MANAGER ED PHOSPHORUS Routine 05/25/2021 3:00 AM MANAGER ED MAGNESIUM Routine 05/25/2021 3:00 AM MANAGER ED BASIC METABOLIC PANEL Routine 05/25/2021 3:00 AM MANAGER ED CRITICAL CARE Routine 05/24/2021 11:38 PM MANAGER ED Type 2 diabetes mellitus with other specified complication, without long-term current use of insulin ([facility]) Chronic obstructive pulmonary disease, unspecified COPD type ([facility]) Pneumonia due to COVID-19 virus Acute hypoxemic respiratory failure due to COVID-19 (CMS/HCC) ([facility]) S/P CABG x 4 ST elevation myocardial infarction involving left circumflex coronary artery ([facility]) POCT GLUCOSE DEVICE Routine 05/24/2021 11:31 PM MANAGER ED POCT GLUCOSE DEVICE Routine 05/24/2021 7 :52 PM MANAGER ED POCT GLUCOSE DEVICE Routine 05/24/2021 5 :04 PM MANAGER ED CRITICAL CARE Routine 05/24/2021 1:[address] elevation myocardial infarction (STEMI), unspecified artery (HCC) POCT GLUCOSE DEVICE Routine 05/24/2021 12:18 PM MANAGER ED POCT GLUCOSE DEVICE Routine 05/24/2021 8 :51 AM MANAGER ED XR CHEST 1 VIEW IP Routine 05/24/2021 6:58 AM MANAGER ED POCT GLUCOSE DEVICE Routine 05/24/2021 6 :46 AM MANAGER ED EGFR Routine 05/24/2021 3:48 AM MANAGER ED IRON PROFILE W/ IBC Routine 05/24/2021 3 :48 AM MANAGER ED ALBUMIN CREATININE RATIO, URINE Routine 05/24/2021 3:48 AM MANAGER ED HEPATITIS PANEL, ACUTE Routine 3:48 AM MANAGER ED VITAMIN D 25 HYDROXY Routine 05/24/2021 3:48 AM MANAGER ED CBC WITHOUT DIFFERENTIAL Routine 05/24/2021 3:48 AM MANAGER ED PHOSPHORUS Routine 05/24/2021 3:48 AM MANAGER ED MAGNESIUM Routine 05/24/2021 3:48 AM MANAGER ED FOLATE Routine 05/24/2021 3:48 AM MANAGER ED FERRITIN Routine 05/24/2021 3:48 AM MANAGER ED VITAMIN B12 Routine 05/24/2021 3:48 AM MANAGER ED LIPID PANEL Routine 05/24/2021 3:48 AM MANAGER ED BASIC METABOLIC PANEL Routine 05/24/2021 3:48 AM MANAGER ED POCT GLUCOSE DEVICE Routine 05/23/2021 11:21 PM MANAGER ED POCT GLUCOSE DEVICE Routine 05/23/2021 9 :11 PM MANAGER ED CRITICAL CARE Routine 05/23/2021 8:[address] elevation myocardial infarction involving left anterior descending (LAD) coronary artery ([facility]) Chronic obstructive pulmonary disease, unspecified COPD type ([facility]) Pneumonia due to COVID-19 virus Acute hypoxemic respiratory failure due to COVID-19 (CMS/HCC) (HCC) S/P CABG x 4 ST elevation myocardial infarction involving left circumflex coronary artery ([facility]) POCT GLUCOSE DEVICE Routine 05/23/2021 6 :14 PM MANAGER ED CRITICAL CARE Routine 05/23/2021 3:32 PM MANAGER ED Pneumonia due to COVID-19 virus POCT GLUCOSE DEVICE Routine 05/23/2021 2 :43 PM MANAGER ED POCT GLUCOSE DEVICE Routine 05/23/2021 1 :12 PM MANAGER ED POCT GLUCOSE DEVICE Routine 05/23/2021 11:56 AM MANAGER ED POCT GLUCOSE DEVICE Routine 05/23/2021 10:37 AM MANAGER ED POCT GLUCOSE DEVICE Routine 05/23/2021 9 :26 AM MANAGER ED POCT GLUCOSE DEVICE Routine 05/23/2021 7 :12 AM MANAGER ED POCT GLUCOSE DEVICE Routine 05/23/2021 6 :09 AM MANAGER ED XR CHEST 1 VIEW IP Routine 05/23/2021 5:19 AM MANAGER ED POCT GLUCOSE DEVICE Routine 05/23/2021 4 :58 AM MANAGER ED POCT GLUCOSE DEVICE Routine 05/23/2021 4 :02 AM MANAGER ED EGFR Routine 05/23/2021 3:18 AM MANAGER ED POCT GLUCOSE DEVICE Routine 05/23/2021 3 :18 AM MANAGER ED CBC WITHOUT DIFFERENTIAL Routine 05/23/2021 3:18 AM MANAGER ED PHOSPHORUS Routine 05/23/2021 3:18 AM MANAGER ED MAGNESIUM Routine 05/23/2021 3:18 AM MANAGER ED BASIC METABOLIC PANEL Routine 05/23/2021 3:18 AM MANAGER ED POCT GLUCOSE DEVICE Routine 05/23/2021 2 :05 AM MANAGER ED POCT GLUCOSE DEVICE Routine 05/23/2021 1 :10 AM MANAGER ED POCT GLUCOSE DEVICE Routine 05/22/2021 11:59 PM MANAGER ED CRITICAL CARE Routine 05/22/2021 11:35 PM MANAGER ED Chronic obstructive pulmonary disease, unspecified COPD type (HCC) Pneumonia due to COVID-19 virus Acute hypoxemic respiratory failure due to COVID-19 (CMS/HCC) (HCC) POCT GLUCOSE DEVICE Routine 05/22/2021 11:06 PM MANAGER ED POCT GLUCOSE DEVICE Routine 05/22/2021 10:04 PM MANAGER ED POCT GLUCOSE DEVICE Routine 05/22/2021 9 :21 PM MANAGER ED POCT GLUCOSE DEVICE Routine 05/22/2021 8 :18 PM MANAGER ED POCT GLUCOSE DEVICE Routine 05/22/2021 5 :56 PM MANAGER ED POCT GLUCOSE DEVICE Routine 05/22/2021 4 :55 PM MANAGER ED POCT GLUCOSE DEVICE Routine 05/22/2021 3 :47 PM MANAGER ED POCT GLUCOSE DEVICE Routine 05/22/2021 2 :35 PM MANAGER ED POCT GLUCOSE DEVICE Routine 05/22/2021 1 :32 PM MANAGER ED POCT GLUCOSE DEVICE Routine 05/22/2021 12:27 PM MANAGER ED POCT GLUCOSE DEVICE Routine 05/22/2021 11:30 AM MANAGER ED POCT GLUCOSE DEVICE Routine 05/22/2021 10:35 AM MANAGER ED POCT GLUCOSE DEVICE Routine 05/22/2021 9 :32 AM MANAGER ED XR CHEST 1 VIEW IP Routine 05/22/2021 8:36 AM MANAGER ED POCT GLUCOSE DEVICE Routine 05/22/2021 8 :28 AM MANAGER ED CRITICAL CARE Routine 05/22/2021 7:[address] elevation myocardial infarction (STEMI), unspecified artery (HCC) POCT GLUCOSE DEVICE Routine 05/22/2021 6 :25 AM MANAGER ED EGFR Routine 05/22/2021 3:49 AM MANAGER ED PRO B-TYPE NATRIURETIC PEPTIDE Routine 05/22/2021 3:49 AM MANAGER ED CBC WITHOUT DIFFERENTIAL Routine 05/22/2021 3:49 AM MANAGER ED PHOSPHORUS Routine 05/22/2021 3:49 AM MANAGER ED MAGNESIUM Routine 05/22/2021 3:49 AM MANAGER ED BASIC METABOLIC PANEL Routine 05/22/2021 3:49 AM MANAGER ED POCT GLUCOSE DEVICE Routine 05/22/2021 2 :27 AM MANAGER ED POCT GLUCOSE DEVICE Routine 05/21/2021 11:39 PM MANAGER ED CRITICAL CARE Routine 05/21/2021 11:31 PM MANAGER ED Pneumonia due to COVID-19 virus POCT GLUCOSE DEVICE Routine 05/21/2021 9 :41 PM MANAGER ED EGFR Add On 05/21/2021 9:18 PM MANAGER ED CALCIUM, IONIZED STAT 05/21/2021 9:18 PM MANAGER ED PHOSPHORUS STAT 05/21/2021 9:18 PM MANAGER ED MAGNESIUM STAT 05/21/2021 9:18 PM MANAGER ED BASIC METABOLIC PANEL Add-On 05/21/2021 9:18 PM MANAGER ED POCT GLUCOSE DEVICE Routine 05/21/2021 8 :14 PM MANAGER ED POCT GLUCOSE DEVICE Routine 05/21/2021 3 :46 PM MANAGER ED POCT GLUCOSE DEVICE Routine 05/21/2021 11:59 AM MANAGER ED POCT GLUCOSE DEVICE Routine 05/21/2021 8 :06 AM MANAGER ED CRITICAL CARE Routine 05/21/2021 8:00 AM MANAGER ED Pulmonary edema with congestive heart failure (CMS/HCC) (HCC) EGFR Routine 05/21/2021 4:13 AM MANAGER ED PHOSPHORUS Routine 05/21/2021 4:13 AM MANAGER ED MAGNESIUM Routine 05/21/2021 4:13 AM MANAGER ED BASIC METABOLIC PANEL Routine 05/21/2021 4:13 AM MANAGER ED CBC WITHOUT DIFFERENTIAL Routine 05/21/2021 3:57 AM MANAGER ED POCT GLUCOSE DEVICE Routine 05/21/2021 2 :57 AM MANAGER ED CRITICAL CARE Routine 05/20/2021 11:33 PM MANAGER ED Pneumonia due to COVID-19 virus POCT GLUCOSE DEVICE Routine 05/20/2021 7 :55 PM MANAGER ED POCT GLUCOSE DEVICE Routine 05/20/2021 5 :03 PM MANAGER ED POCT GLUCOSE DEVICE Routine 05/20/2021 12:50 PM MANAGER ED POCT GLUCOSE DEVICE Routine 05/20/2021 9 :02 AM MANAGER ED CRITICAL CARE Routine 05/20/2021 8:[address] elevation myocardial infarction (STEMI), unspecified artery (HCC) EGFR Timed 05/20/2021 3:28 AM MANAGER ED CBC WITHOUT DIFFERENTIAL Routine 05/20/2021 3:28 AM MANAGER ED CRP (ACUTE PHASE) Add-On 05/20/2021 3:2 8 AM MANAGER ED PHOSPHORUS Routine 05/20/2021 3:28 AM MANAGER ED MAGNESIUM Routine 05/20/2021 3:28 AM MANAGER ED BASIC METABOLIC PANEL Timed 05/20/2021 3:28 AM MANAGER ED POCT GLUCOSE DEVICE Routine 05/20/2021 1 :28 AM MANAGER ED EGFR Timed 05/20/2021 12:25 AM MANAGER ED BASIC METABOLIC PANEL Timed 05/20/2021 12:25 AM MANAGER ED INFLUENZA A/B, RSV, AND COVID-19 PCR Routine 05/19/2021 8:54 PM MANAGER ED POCT GLUCOSE DEVICE Routine 05/19/2021 8 :37 PM MANAGER ED CRITICAL CARE Routine 05/19/2021 7:[address] elevation myocardial infarction (STEMI), unspecified artery (HCC) EGFR Timed 05/19/2021 4:45 PM MANAGER ED BASIC METABOLIC PANEL Timed 05/19/2021 4:45 PM MANAGER ED POCT GLUCOSE DEVICE Routine 05/19/2021 4 :31 PM MANAGER ED SNIFF TEST ED Urgent/IP Urgent 05/19/2021 4:05 PM MANAGER ED POCT GLUCOSE DEVICE Routine 05/19/2021 1 :[address] CHEST WO CONTRAST IP Routine 05/19/2021 11:19 AM MANAGER ED CRITICAL CARE Routine 05/19/2021 10:[address] elevation myocardial infarction (STEMI), unspecified artery (HCC) POCT GLUCOSE DEVICE Routine 05/19/2021 7 :18 AM MANAGER ED XR CHEST 1 VIEW IP Routine 05/19/2021 6:09 AM MANAGER ED CBC WITHOUT DIFFERENTIAL Routine 05/19/2021 4:56 AM MANAGER ED EGFR Timed 05/19/2021 4:44 AM MANAGER ED PHOSPHORUS Routine 05/19/2021 4:44 AM MANAGER ED MAGNESIUM Routine 05/19/2021 4:44 AM MANAGER ED BASIC METABOLIC PANEL Timed 05/19/2021 4:44 AM MANAGER ED EGFR STAT 05/19/2021 2:05 AM MANAGER ED MAGNESIUM STAT 05/19/2021 2:05 AM MANAGER ED BASIC METABOLIC PANEL STAT 05/19/2021 2:05 AM MANAGER ED POCT GLUCOSE DEVICE Routine 05/19/2021 1 :43 AM MANAGER ED POTASSIUM, WHOLE BLOOD STAT 1:28 AM MANAGER ED D-DIMER, QUANTITATIVE STAT 05/18/2021 10:01 PM MANAGER ED LACTATE STAT 05/18/2021 9:37 PM MANAGER ED BETA-HYDROXYBUTYRATE STAT 05/18/2021 9:37 PM MANAGER ED HEPATIC FUNCTION PANEL Routine 9:37 PM MANAGER ED POCT GLUCOSE DEVICE Routine 05/18/2021 8 :00 PM MANAGER ED BLOOD GAS, ARTERIAL STAT 05/18/2021 7 :53 PM MANAGER ED CRITICAL CARE Routine 05/18/2021 7:[address] elevation myocardial infarction (STEMI), unspecified artery (HCC) EGFR Timed 05/18/2021 5:30 PM MANAGER ED EGFR STAT 05/18/2021 5:30 PM MANAGER ED THYROID FUNCTION CASCADE Add-On 05/18/2021 5:30 PM MANAGER ED MAGNESIUM STAT 05/18/2021 5:30 PM MANAGER ED BASIC METABOLIC PANEL STAT 05/18/2021 5:30 PM MANAGER ED BASIC METABOLIC PANEL Timed 05/18/2021 5:30 PM MANAGER ED POCT GLUCOSE DEVICE Routine 05/18/2021 5 :22 PM MANAGER ED CORTISOL Timed 05/18/2021 2:32 PM MANAGER ED CORTISOL Timed 05/18/2021 1:51 PM MANAGER ED POCT GLUCOSE DEVICE Routine 05/18/2021 1 :21 PM MANAGER ED EGFR Timed 05/18/2021 12:36 PM MANAGER ED CORTISOL Timed 05/18/2021 12:36 PM MANAGER ED BASIC METABOLIC PANEL Timed 05/18/2021 12:36 PM MANAGER ED POCT GLUCOSE DEVICE Routine 05/18/2021 12:15 PM MANAGER ED NM PULMONARY PERFUSION IMAGING IP Routine 05/18/2021 11:54 AM MANAGER ED POCT GLUCOSE DEVICE Routine 05/18/2021 11:06 AM MANAGER ED CRITICAL CARE Routine 05/18/2021 10:[address] elevation myocardial infarction (STEMI), unspecified artery (HCC) POCT GLUCOSE DEVICE Routine 05/18/2021 9 :04 AM MANAGER ED POCT GLUCOSE DEVICE Routine 05/18/2021 8 :01 AM MANAGER ED POCT GLUCOSE DEVICE Routine 05/18/2021 6 :56 AM MANAGER ED EGFR Timed 05/18/2021 6:19 AM MANAGER ED PRO B-TYPE NATRIURETIC PEPTIDE Routine 05/18/2021 6:19 AM MANAGER ED BASIC METABOLIC PANEL Timed 05/18/2021 6:19 AM MANAGER ED POCT GLUCOSE DEVICE Routine 05/18/2021 5 :52 AM MANAGER ED XR CHEST 1 VIEW IP Routine 05/18/2021 5:48 AM MANAGER ED POCT GLUCOSE DEVICE Routine 05/18/2021 4 :58 AM MANAGER ED POCT GLUCOSE DEVICE Routine 05/18/2021 3 :57 AM MANAGER ED POCT GLUCOSE DEVICE Routine 05/18/2021 3 :01 AM MANAGER ED EGFR Timed 05/18/2021 2:04 AM MANAGER ED CBC WITHOUT DIFFERENTIAL Routine 05/18/2021 2:04 AM MANAGER ED PHOSPHORUS Routine 05/18/2021 2:04 AM MANAGER ED MAGNESIUM Routine 05/18/2021 2:04 AM MANAGER ED BASIC METABOLIC PANEL Timed 05/18/2021 2:04 AM MANAGER ED POCT GLUCOSE DEVICE Routine 05/18/2021 2 :03 AM MANAGER ED POCT GLUCOSE DEVICE Routine 05/18/2021 1 :00 AM MANAGER ED POCT GLUCOSE DEVICE Routine 05/17/2021 11:55 PM MANAGER ED POCT GLUCOSE DEVICE Routine 05/17/2021 10:50 PM MANAGER ED POCT GLUCOSE DEVICE Routine 05/17/2021 9 :45 PM MANAGER ED EGFR Timed 05/17/2021 9:35 PM MANAGER ED BASIC METABOLIC PANEL Timed 05/17/2021 9:35 PM MANAGER ED XR CHEST 1 VIEW Critical/Life-T hreatening 05/17/2021 9:34 PM MANAGER ED POCT GLUCOSE DEVICE Routine 05/17/2021 8 :42 PM MANAGER ED POCT GLUCOSE DEVICE Routine 05/17/2021 7 :38 PM MANAGER ED CRITICAL CARE Routine 05/17/2021 7:[address] elevation myocardial infarction (STEMI), unspecified artery (HCC) POCT GLUCOSE DEVICE Routine 05/17/2021 6 :51 PM MANAGER ED POCT GLUCOSE DEVICE Routine 05/17/2021 6 :04 PM MANAGER ED POCT GLUCOSE DEVICE Routine 05/17/2021 5 :00 PM MANAGER ED POCT GLUCOSE DEVICE Routine 05/17/2021 3 :54 PM MANAGER ED EGFR STAT 05/17/2021 2:49 PM MANAGER ED MAGNESIUM STAT 05/17/2021 2:49 PM MANAGER ED BASIC METABOLIC PANEL STAT 05/17/2021 2:49 PM MANAGER ED POCT GLUCOSE DEVICE Routine 05/17/2021 2 :47 PM MANAGER ED POCT GLUCOSE DEVICE Routine 05/17/2021 1 :32 PM MANAGER ED POCT GLUCOSE DEVICE Routine 05/17/2021 12:27 PM MANAGER ED LACTATE STAT 05/17/2021 9:53 AM MANAGER ED EGFR Routine 05/17/2021 9:53 AM MANAGER ED BETA-HYDROXYBUTYRATE STAT 05/17/2021 9:53 AM MANAGER ED BASIC METABOLIC PANEL Routine 05/17/2021 9:53 AM MANAGER ED POCT GLUCOSE DEVICE Routine 05/17/2021 9 :36 AM MANAGER ED CRITICAL CARE Routine 05/17/2021 8:[address] elevation myocardial infarction (STEMI), unspecified artery (HCC) XR CHEST 1 VIEW ED Urgent/IP Urgent 05/17/2021 7:41 AM MANAGER ED OXYHEMOGLOBIN, CENTRAL VENOUS Routine 05/17/2021 4:50 AM MANAGER ED TRANSTHORACIC ECHO (TTE) COMPLETE W DOPPLER/CF WO CONTRAST Routine 05/17/2021 3:55 AM MANAGER ED OXYHEMOGLOBIN, CENTRAL VENOUS STAT 05/17/2021 3:43 AM MANAGER ED EGFR STAT 05/17/2021 3:33 AM MANAGER ED DIFFERENTIAL AUTO STAT 05/17/2021 3:3 3 AM MANAGER ED CALCIUM, IONIZED STAT 05/17/2021 3:33 AM MANAGER ED CBC WITH AUTO DIFFERENTIAL STAT 05/17/2021 3:33 AM MANAGER ED PHOSPHORUS STAT 05/17/2021 3:33 AM MANAGER ED MAGNESIUM STAT 05/17/2021 3:33 AM MANAGER ED COMPREHENSIVE METABOLIC PANEL STAT 05/17/2021 3:33 AM MANAGER ED CRITICAL CARE Routine 05/17/2021 3:31 AM MANAGER ED Pulmonary edema with congestive heart failure (CMS/HCC) (HCC) XR CHEST 1 VIEW Critical/Life-T hreatening 05/17/2021 2:34 AM MANAGER ED POCT GLUCOSE DEVICE Routine 05/17/2021 2 :21 AM MANAGER ED BLOOD GAS, ARTERIAL STAT 05/17/2021 2 :20 AM MANAGER ED POCT GLUCOSE DEVICE Routine 05/17/2021 2 :01 AM MANAGER ED POCT GLUCOSE DEVICE Routine 05/16/2021 10:45 PM MANAGER ED POCT GLUCOSE DEVICE Routine 05/16/2021 8 :47 PM MANAGER ED POCT GLUCOSE DEVICE Routine 05/16/2021 6 :10 PM MANAGER ED POCT GLUCOSE DEVICE Routine 05/16/2021 12:54 PM MANAGER ED POCT GLUCOSE DEVICE Routine 05/16/2021 7 :51 AM MANAGER ED EGFR Routine 05/16/2021 5:42 AM MANAGER ED CBC WITHOUT DIFFERENTIAL Routine 05/16/2021 5:42 AM MANAGER ED PHOSPHORUS Routine 05/16/2021 5:42 AM MANAGER ED MAGNESIUM Routine 05/16/2021 5:42 AM MANAGER ED BASIC METABOLIC PANEL Routine 05/16/2021 5:42 AM MANAGER ED XR CHEST 1 VIEW IP Routine 05/16/2021 5:29 AM MANAGER ED POCT GLUCOSE DEVICE Routine 05/16/2021 2 :43 AM MANAGER ED POCT GLUCOSE DEVICE Routine 05/15/2021 8 :42 PM MANAGER ED POCT GLUCOSE DEVICE Routine 05/15/2021 5 :05 PM MANAGER ED POCT GLUCOSE DEVICE Routine 05/15/2021 12:06 PM MANAGER ED POCT GLUCOSE DEVICE Routine 05/15/2021 7 :30 AM MANAGER ED XR CHEST 1 VIEW IP Routine 05/15/2021 6:02 AM MANAGER ED EGFR Routine 05/15/2021 5:33 AM MANAGER ED PHOSPHORUS Routine 05/15/2021 5:33 AM MANAGER ED MAGNESIUM Routine 05/15/2021 5:33 AM MANAGER ED BASIC METABOLIC PANEL Routine 05/15/2021 5:33 AM MANAGER ED CBC WITHOUT DIFFERENTIAL Routine 05/15/2021 5:32 AM MANAGER ED POCT GLUCOSE DEVICE Routine 05/15/2021 2 :40 AM MANAGER ED POCT GLUCOSE DEVICE Routine 05/14/2021 10:07 PM MANAGER ED POCT GLUCOSE DEVICE Routine 05/14/2021 5 :12 PM MANAGER ED POCT GLUCOSE DEVICE Routine 05/14/2021 1 :13 PM MANAGER ED POCT GLUCOSE DEVICE Routine 05/14/2021 11:47 AM MANAGER ED EGFR Routine 05/14/2021 9:22 AM MANAGER ED CBC WITHOUT DIFFERENTIAL Routine 05/14/2021 9:22 AM MANAGER ED PHOSPHORUS Routine 05/14/2021 9:22 AM MANAGER ED MAGNESIUM Routine 05/14/2021 9:22 AM MANAGER ED BASIC METABOLIC PANEL Routine 05/14/2021 9:22 AM MANAGER ED POCT GLUCOSE DEVICE Routine 05/14/2021 9 :07 AM MANAGER ED POCT GLUCOSE DEVICE Routine 05/14/2021 6 :43 AM MANAGER ED XR CHEST 1 VIEW IP Routine 05/14/2021 6:07 AM MANAGER ED POCT GLUCOSE DEVICE Routine 05/13/2021 8 :13 PM MANAGER ED POCT GLUCOSE DEVICE Routine 05/13/2021 5 :[address] ABDOMEN PELVIS WO CONTRAST IP Routine 05/13/2021 2:31 PM MANAGER ED POCT GLUCOSE DEVICE Routine 05/13/2021 8 :16 AM MANAGER ED EGFR Routine 05/13/2021 6:13 AM MANAGER ED PHOSPHORUS Routine 05/13/2021 6:13 AM MANAGER ED MAGNESIUM Routine 05/13/2021 6:13 AM MANAGER ED BASIC METABOLIC PANEL Routine 05/13/2021 6:13 AM MANAGER ED CBC WITHOUT DIFFERENTIAL Routine 05/13/2021 6:12 AM MANAGER ED XR CHEST 1 VIEW IP Routine 05/13/2021 6:00 AM MANAGER ED POCT GLUCOSE DEVICE Routine 05/13/2021 1 :40 AM MANAGER ED POCT GLUCOSE DEVICE Routine 05/12/2021 10:04 PM MANAGER ED POCT GLUCOSE DEVICE Routine 05/12/2021 5 :43 PM MANAGER ED POCT GLUCOSE DEVICE Routine 05/12/2021 12:31 PM MANAGER ED APTT STAT 05/12/2021 12:26 PM MANAGER ED PROTIME-INR STAT 05/12/2021 12:26 PM MANAGER ED POCT GLUCOSE DEVICE Routine 05/12/2021 8 :10 AM MANAGER ED POCT GLUCOSE DEVICE Routine 05/12/2021 7 :09 AM MANAGER ED EGFR Routine 05/12/2021 6:38 AM MANAGER ED CBC WITHOUT DIFFERENTIAL Routine 05/12/2021 6:38 AM MANAGER ED PHOSPHORUS Routine 05/12/2021 6:38 AM MANAGER ED MAGNESIUM Routine 05/12/2021 6:38 AM MANAGER ED BASIC METABOLIC PANEL Routine 05/12/2021 6:38 AM MANAGER ED XR CHEST 1 VIEW IP Routine 05/12/2021 5:33 AM MANAGER ED POCT GLUCOSE DEVICE Routine 05/12/2021 1 :46 AM MANAGER ED POCT GLUCOSE DEVICE Routine 05/11/2021 9 :41 PM MANAGER ED POCT GLUCOSE DEVICE Routine 05/11/2021 6 :22 PM MANAGER ED POCT GLUCOSE DEVICE Routine 05/11/2021 11:28 AM MANAGER ED POCT GLUCOSE DEVICE Routine 05/11/2021 8 :59 AM MANAGER ED XR CHEST 1 VIEW IP Routine 05/11/2021 6:57 AM MANAGER ED EGFR Routine 05/11/2021 6:11 AM MANAGER ED CBC WITHOUT DIFFERENTIAL Routine 05/11/2021 6:11 AM MANAGER ED PHOSPHORUS Routine 05/11/2021 6:11 AM MANAGER ED MAGNESIUM Routine 05/11/2021 6:11 AM MANAGER ED BASIC METABOLIC PANEL Routine 05/11/2021 6:11 AM MANAGER ED POCT GLUCOSE DEVICE Routine 05/11/2021 5 :05 AM MANAGER ED POCT GLUCOSE DEVICE Routine 05/11/2021 1 :22 AM MANAGER ED POCT GLUCOSE DEVICE Routine 05/10/2021 9 :26 PM MANAGER ED POCT GLUCOSE DEVICE Routine 05/10/2021 4 :13 PM MANAGER ED POCT GLUCOSE DEVICE Routine 05/10/2021 12:24 PM MANAGER ED POCT GLUCOSE DEVICE Routine 05/10/2021 7 :57 AM MANAGER ED XR CHEST 1 VIEW IP Routine 05/10/2021 6:55 AM MANAGER ED POCT GLUCOSE DEVICE Routine 05/10/2021 5 :14 AM MANAGER ED EGFR Routine 05/10/2021 5:02 AM MANAGER ED CBC WITHOUT DIFFERENTIAL Routine 05/10/2021 5:02 AM MANAGER ED PHOSPHORUS Routine 05/10/2021 5:02 AM MANAGER ED MAGNESIUM Routine 05/10/2021 5:02 AM MANAGER ED BASIC METABOLIC PANEL Routine 05/10/2021 5:02 AM MANAGER ED POCT GLUCOSE DEVICE Routine 05/10/2021 1 :09 AM MANAGER ED POCT GLUCOSE DEVICE Routine 05/09/2021 10:52 PM MANAGER ED POCT GLUCOSE DEVICE Routine 05/09/2021 6 :13 PM MANAGER ED POCT GLUCOSE DEVICE Routine 05/09/2021 11:40 AM MANAGER ED POCT GLUCOSE DEVICE Routine 05/09/2021 7 :56 AM MANAGER ED XR CHEST 1 VIEW IP Routine 05/09/2021 6:12 AM MANAGER ED EGFR Routine 05/09/2021 6:12 AM MANAGER ED CBC WITHOUT DIFFERENTIAL Routine 05/09/2021 6:12 AM MANAGER ED PHOSPHORUS Routine 05/09/2021 6:12 AM MANAGER ED MAGNESIUM Routine 05/09/2021 6:12 AM MANAGER ED BASIC METABOLIC PANEL Routine 05/09/2021 6:12 AM MANAGER ED POCT GLUCOSE DEVICE Routine 05/09/2021 3 :58 AM MANAGER ED POCT GLUCOSE DEVICE Routine 05/09/2021 12:30 AM MANAGER ED POCT GLUCOSE DEVICE Routine 05/08/2021 10:32 PM MANAGER ED POCT GLUCOSE DEVICE Routine 05/08/2021 5 :38 PM MANAGER ED POCT GLUCOSE DEVICE Routine 05/08/2021 12:01 PM MANAGER ED POCT GLUCOSE DEVICE Routine 05/08/2021 7 :41 AM MANAGER ED EGFR Routine 05/08/2021 5:55 AM MANAGER ED CBC WITHOUT DIFFERENTIAL Routine 05/08/2021 5:55 AM MANAGER ED PHOSPHORUS Routine 05/08/2021 5:55 AM MANAGER ED MAGNESIUM Routine 05/08/2021 5:55 AM MANAGER ED BASIC METABOLIC PANEL Routine 05/08/2021 5:55 AM MANAGER ED XR CHEST 1 VIEW IP Routine 05/08/2021 5:34 AM MANAGER ED POCT GLUCOSE DEVICE Routine 05/08/2021 4 :08 AM MANAGER ED POCT GLUCOSE DEVICE Routine 05/08/2021 12:12 AM MANAGER ED POCT GLUCOSE DEVICE Routine 05/07/2021 7 :51 PM MANAGER ED POCT GLUCOSE DEVICE Routine 05/07/2021 3 :56 PM MANAGER ED CRITICAL CARE Routine 05/07/2021 3:[address] elevation myocardial infarction (STEMI), unspecified artery (HCC) TRANSFUSE RED BLOOD CELLS Timed 05/07/2021 2:48 PM MANAGER ED TRANSTHORACIC ECHO (TTE) LIMITED/FOLLOW UP W LTD DOPPLER/CF WO CONTRAST Routine 05/07/2021 12:37 PM MANAGER ED POCT GLUCOSE DEVICE Routine 05/07/2021 12:18 PM MANAGER ED TYPE AND SCREEN Timed 05/07/2021 10:36 AM MANAGER ED POCT GLUCOSE DEVICE Routine 05/07/2021 8 :55 AM MANAGER ED PREPARE RBC STAT 05/07/2021 8:32 AM MANAGER ED OXYHEMOGLOBIN, CENTRAL VENOUS Routine 05/07/2021 6:15 AM MANAGER ED XR CHEST 1 VIEW IP Routine 05/07/2021 5:33 AM MANAGER ED EGFR Routine 05/07/2021 4:21 AM MANAGER ED CBC WITHOUT DIFFERENTIAL Routine 05/07/2021 4:21 AM MANAGER ED PHOSPHORUS Routine 05/07/2021 4:21 AM MANAGER ED MAGNESIUM Routine 05/07/2021 4:21 AM MANAGER ED BASIC METABOLIC PANEL Routine 05/07/2021 4:21 AM MANAGER ED POCT GLUCOSE DEVICE Routine 05/07/2021 4 :19 AM MANAGER ED EGFR Timed 05/06/2021 11:14 PM MANAGER ED MAGNESIUM Timed 05/06/2021 11:14 PM MANAGER ED BASIC METABOLIC PANEL Timed 05/06/2021 11:14 PM MANAGER ED POCT GLUCOSE DEVICE Routine 05/06/2021 11:13 PM MANAGER ED POCT GLUCOSE DEVICE Routine 05/06/2021 8 :03 PM MANAGER ED POCT GLUCOSE DEVICE Routine 05/06/2021 3 :46 PM MANAGER ED EGFR STAT 05/06/2021 1:12 PM MANAGER ED CBC WITHOUT DIFFERENTIAL STAT 05/06/2021 1:12 PM MANAGER ED MAGNESIUM STAT 05/06/2021 1:12 PM MANAGER ED BASIC METABOLIC PANEL STAT 05/06/2021 1:12 PM MANAGER ED POCT GLUCOSE DEVICE Routine 05/06/2021 11:47 AM MANAGER ED POCT GLUCOSE DEVICE Routine 05/06/2021 7 :41 AM MANAGER ED XR CHEST 1 VIEW IP Routine 05/06/2021 5:55 AM MANAGER ED EGFR Routine 05/06/2021 3:32 AM MANAGER ED CBC WITHOUT DIFFERENTIAL Routine 05/06/2021 3:32 AM MANAGER ED PHOSPHORUS Routine 05/06/2021 3:32 AM MANAGER ED MAGNESIUM Routine 05/06/2021 3:32 AM MANAGER ED BASIC METABOLIC PANEL Routine 05/06/2021 3:32 AM MANAGER ED POCT GLUCOSE DEVICE Routine 05/05/2021 11:52 PM MANAGER ED CRITICAL CARE Routine 05/05/2021 11:[address] elevation myocardial infarction (STEMI), unspecified artery (HCC) Gross hematuria Chronic obstructive pulmonary disease, unspecified COPD type (HCC) POCT GLUCOSE DEVICE Routine 05/05/2021 8 :43 PM MANAGER ED POCT GLUCOSE DEVICE Routine 05/05/2021 4 :12 PM MANAGER ED EGFR STAT 05/05/2021 4:05 PM MANAGER ED MAGNESIUM STAT 05/05/2021 4:05 PM MANAGER ED BLOOD GAS, ARTERIAL STAT 05/05/2021 4 :05 PM MANAGER ED BASIC METABOLIC PANEL STAT 05/05/2021 4:05 PM MANAGER ED CRITICAL CARE Routine 05/05/2021 12:25 PM MANAGER ED Gross hematuria Primary hypertension PVD (peripheral vascular disease) ([facility]/HCC) ([facility]) Type 2 diabetes mellitus with other specified complication, without long-term current use of insulin ([facility]) ST elevation myocardial infarction involving left anterior descending (LAD) coronary artery ([facility]) Chronic obstructive pulmonary disease, unspecified COPD type ([facility]) POCT GLUCOSE DEVICE Routine 05/05/2021 12:07 PM MANAGER ED EGFR STAT 05/05/2021 12:04 PM MANAGER ED CALCIUM, IONIZED STAT 05/05/2021 12:04 PM MANAGER ED CBC WITHOUT DIFFERENTIAL STAT 05/05/2021 12:04 PM MANAGER ED MAGNESIUM STAT 05/05/2021 12:04 PM MANAGER ED BLOOD GAS, ARTERIAL STAT 05/05/2021 12:04 PM MANAGER ED BASIC METABOLIC PANEL STAT 05/05/2021 12:04 PM MANAGER ED POCT GLUCOSE DEVICE Routine 05/05/2021 11:14 AM MANAGER ED POCT GLUCOSE DEVICE Routine 05/05/2021 10:19 AM MANAGER ED BLOOD GAS, ARTERIAL Routine 05/05/2021 10:15 AM MANAGER ED AEROBIC CULTURE AND GRAM STAIN Routine 05/05/2021 9:53 AM MANAGER ED POCT GLUCOSE DEVICE Routine 05/05/2021 9 :09 AM MANAGER ED POCT GLUCOSE DEVICE Routine 05/05/2021 7 :56 AM MANAGER ED BLOOD GAS, ARTERIAL STAT 05/05/2021 6 :50 AM MANAGER ED POCT GLUCOSE DEVICE Routine 05/05/2021 6 :45 AM MANAGER ED XR CHEST 1 VIEW IP Routine 05/05/2021 5:32 AM MANAGER ED POCT GLUCOSE DEVICE Routine 05/05/2021 5 :07 AM MANAGER ED BLOOD GAS, ARTERIAL STAT 05/05/2021 4 :41 AM MANAGER ED EGFR Routine 05/05/2021 4:19 AM MANAGER ED DIFFERENTIAL AUTO Routine 05/05/2021 4:1 9 AM MANAGER ED CBC WITH AUTO DIFFERENTIAL Routine 05/05/2021 4:19 AM MANAGER ED MANUAL DIFFERENTIAL Routine 05/05/2021 4 :19 AM MANAGER ED PHOSPHORUS Routine 05/05/2021 4:19 AM MANAGER ED MAGNESIUM Routine 05/05/2021 4:19 AM MANAGER ED BASIC METABOLIC PANEL Routine 05/05/2021 4:19 AM MANAGER ED OXYHEMOGLOBIN, PULMONARY ARTERY Routine 05/05/2021 4:08 AM MANAGER ED POCT GLUCOSE DEVICE Routine 05/05/2021 3 :59 AM MANAGER ED TRANSFUSE RED BLOOD CELLS Timed 05/05/2021 3:00 AM MANAGER ED POCT GLUCOSE DEVICE Routine 05/05/2021 2 :55 AM MANAGER ED OXYHEMOGLOBIN, PULMONARY ARTERY STAT 05/05/2021 2:32 AM MANAGER ED LACTATE STAT 05/05/2021 2:25 AM MANAGER ED EGFR STAT 05/05/2021 2:25 AM MANAGER ED CALCIUM, IONIZED STAT 05/05/2021 2:25 AM MANAGER ED MAGNESIUM STAT 05/05/2021 2:25 AM MANAGER ED BLOOD GAS, ARTERIAL STAT 05/05/2021 2 :25 AM MANAGER ED BASIC METABOLIC PANEL STAT 05/05/2021 2:25 AM MANAGER ED TRANSFUSE RED BLOOD CELLS Timed 05/05/2021 1:30 AM MANAGER ED POCT GLUCOSE DEVICE Routine 05/05/2021 1 :07 AM MANAGER ED EGFR Timed 05/05/2021 12:21 AM MANAGER ED APTT Routine 05/05/2021 12:21 AM MANAGER ED PROTIME-INR Routine 05/05/2021 12:21 AM MANAGER ED CBC WITHOUT DIFFERENTIAL Timed 05/05/2021 12:21 AM MANAGER ED BASIC METABOLIC PANEL Timed 05/05/2021 12:21 AM MANAGER ED POCT GLUCOSE DEVICE Routine 05/04/2021 11:53 PM MANAGER ED CALCIUM, IONIZED STAT 05/04/2021 11:49 PM MANAGER ED BLOOD GAS, ARTERIAL Timed 05/04/2021 11:49 PM MANAGER ED POCT GLUCOSE DEVICE Routine 05/04/2021 10:59 PM MANAGER ED TRANSFUSE RED BLOOD CELLS Timed 05/04/2021 10:00 PM MANAGER ED PREPARE RBC STAT 05/04/2021 9:56 PM MANAGER ED POCT GLUCOSE DEVICE Routine 05/04/2021 9 :39 PM MANAGER ED EGFR Timed 05/04/2021 9:35 PM MANAGER ED APTT STAT 05/04/2021 9:35 PM MANAGER ED PROTIME-INR STAT 05/04/2021 9:35 PM MANAGER ED CBC WITHOUT DIFFERENTIAL Timed 05/04/2021 9:35 PM MANAGER ED MAGNESIUM STAT 05/04/2021 9:35 PM MANAGER ED BASIC METABOLIC PANEL Timed 05/04/2021 9:35 PM MANAGER ED CALCIUM, IONIZED STAT 05/04/2021 9:34 PM MANAGER ED BLOOD GAS, ARTERIAL Timed 05/04/2021 9 :34 PM MANAGER ED XR CHEST 1 VIEW Critical/Life-T hreatening 05/04/2021 8:53 PM MANAGER ED POCT GLUCOSE DEVICE Routine 05/04/2021 8 :22 PM MANAGER ED CRITICAL CARE Routine 05/04/2021 8:[address] elevation myocardial infarction (STEMI), unspecified artery (HCC) Gross hematuria Type 2 diabetes mellitus with other specified complication, without long-term current use of insulin (HCC) TRANSFUSE CRYOPRECIPITATE (POOLED UNITS) Timed 05/04/2021 8:06 PM MANAGER ED TRANSFUSE PLASMA Timed 05/04/2021 7:49 PM MANAGER ED POC BLOOD GAS AND CHEMISTRIES, ARTERIAL Routine 05/04/2021 7:28 PM MANAGER ED TRANSFUSE PLATELETS Timed 05/04/2021 7 :28 PM MANAGER ED PREPARE CRYOPRECIPITATE (POOLED UNITS) STAT 05/04/2021 6:54 PM MANAGER ED POC BLOOD GAS AND CHEMISTRIES, ARTERIAL Routine 05/04/2021 6:53 PM MANAGER ED TRANSFUSE PLATELETS Timed 05/04/2021 6 :48 PM MANAGER ED TRANSFUSE PLASMA Timed 05/04/2021 6:40 PM MANAGER ED POC BLOOD GAS AND CHEMISTRIES, ARTERIAL Routine 05/04/2021 6:12 PM MANAGER ED PLATELET COUNT STAT 05/04/2021 5:53 PM MANAGER ED POC BLOOD GAS AND CHEMISTRIES, ARTERIAL Routine 05/04/2021 5:43 PM MANAGER ED PREPARE RBC STAT 05/04/2021 5:43 PM MANAGER ED TRANSFUSE RED BLOOD CELLS Timed 05/04/2021 5:22 PM MANAGER ED POC BLOOD GAS AND CHEMISTRIES, ARTERIAL Routine 05/04/2021 5:05 PM MANAGER ED TRANSFUSE RED BLOOD CELLS Timed 05/04/2021 4:27 PM MANAGER ED POC BLOOD GAS AND CHEMISTRIES, ARTERIAL Routine 05/04/2021 4:14 PM MANAGER ED POC BLOOD GAS AND CHEMISTRIES, ARTERIAL Routine 05/04/2021 3:30 PM MANAGER ED PREPARE PLASMA STAT 05/04/2021 3:25 PM MANAGER ED POC BLOOD GAS AND CHEMISTRIES, ARTERIAL Routine 05/04/2021 2:21 PM MANAGER ED POCT GLUCOSE DEVICE Routine 05/04/2021 11:54 AM MANAGER ED CRITICAL CARE Routine 05/04/2021 10:31 AM MANAGER ED Gross hematuria PVD (peripheral vascular disease) ([facility]/HCC) ([facility]) Type 2 diabetes mellitus with other specified complication, without long-term current use of insulin ([facility]) ST elevation myocardial infarction involving left anterior descending (LAD) coronary artery ([facility]) Chronic obstructive pulmonary disease, unspecified COPD type ([facility]) URINALYSIS AND REFLEX TO MICROSCOPIC Routine 05/04/2021 10:13 AM MANAGER ED URINALYSIS, MICROSCOPIC ONLY Routine 05/04/2021 10:13 AM MANAGER ED POCT GLUCOSE DEVICE Routine 05/04/2021 9 :45 AM MANAGER ED XR CHEST 1 VIEW Critical/Life-T hreatening 05/04/2021 9:16 AM MANAGER ED POCT GLUCOSE DEVICE Routine 05/04/2021 8 :03 AM MANAGER ED CBC WITHOUT DIFFERENTIAL Routine 05/04/2021 2:52 AM MANAGER ED EGFR Routine 05/04/2021 2:47 AM MANAGER ED APTT STAT 05/04/2021 2:47 AM MANAGER ED PROTIME-INR STAT 05/04/2021 2:47 AM MANAGER ED PHOSPHORUS Routine 05/04/2021 2:47 AM MANAGER ED MAGNESIUM Routine 05/04/2021 2:47 AM MANAGER ED COMPREHENSIVE METABOLIC PANEL Routine 05/04/2021 2:47 AM MANAGER ED POCT GLUCOSE DEVICE Routine 05/04/2021 2 :38 AM MANAGER ED POCT GLUCOSE DEVICE Routine 05/03/2021 7 :59 PM MANAGER ED CRITICAL CARE Routine 05/03/2021 7:[address] elevation myocardial infarction (STEMI), unspecified artery (HCC) Gross hematuria POCT GLUCOSE DEVICE Routine 05/03/2021 4 :46 PM MANAGER ED POCT GLUCOSE DEVICE Routine 05/03/2021 11:20 AM MANAGER ED PREPARE PLATELETS STAT 05/03/2021 9:2 6 AM MANAGER ED PREPARE RBC STAT 05/03/2021 9:26 AM MANAGER ED CRITICAL CARE Routine 05/03/2021 9:14 AM MANAGER ED Gross hematuria Hemoptysis Primary hypertension PVD (peripheral vascular disease) (CMS/HCC) (HCC) Type 2 diabetes mellitus with other specified complication, without long-term current use of insulin (HCC) ST elevation myocardial infarction involving left anterior descending (LAD) coronary artery (HCC) POCT GLUCOSE DEVICE Routine 05/03/2021 7 :36 AM MANAGER ED EGFR Routine 05/03/2021 4:19 AM MANAGER ED APTT Routine 05/03/2021 4:19 AM MANAGER ED CBC WITHOUT DIFFERENTIAL Routine 05/03/2021 4:19 AM MANAGER ED PHOSPHORUS Routine 05/03/2021 4:19 AM MANAGER ED MAGNESIUM Routine 05/03/2021 4:19 AM MANAGER ED HEMOGLOBIN A1C Routine 05/03/2021 4:19 AM MANAGER ED COMPREHENSIVE METABOLIC PANEL Routine 05/03/2021 4:19 AM MANAGER ED CRITICAL CARE Routine 05/02/2021 8:[address] elevation myocardial infarction (STEMI), unspecified artery (HCC) Gross hematuria EGFR STAT 05/02/2021 7:35 PM MANAGER ED CBC WITHOUT DIFFERENTIAL STAT 05/02/2021 7:35 PM MANAGER ED MAGNESIUM STAT 05/02/2021 7:35 PM MANAGER ED BASIC METABOLIC PANEL STAT 05/02/2021 7:35 PM MANAGER ED POCT GLUCOSE DEVICE Routine 05/02/2021 5 :23 PM MANAGER ED TRANSFUSE RED BLOOD CELLS Timed 05/02/2021 4:25 PM MANAGER ED PREPARE RBC STAT 05/02/2021 3:27 PM MANAGER ED CBC WITHOUT DIFFERENTIAL Routine 05/02/2021 3:12 PM MANAGER ED CRITICAL CARE Routine 05/02/2021 2:[address] elevation myocardial infarction (STEMI), unspecified artery (HCC) Gross hematuria Hemoptysis Primary hypertension PVD (peripheral vascular disease) (CMS/HCC) (HCC) Type 2 diabetes mellitus with other specified complication, without long-term current use of insulin (HCC) POCT GLUCOSE DEVICE Routine 05/02/2021 11:03 AM MANAGER ED COVID-19 CORONAVIRUS RNA Routine 05/02/2021 11:00 AM MANAGER ED APTT Routine 05/02/2021 11:00 AM MANAGER ED TRANSTHORACIC ECHO (TTE) COMPLETE W DOPPLER/CF WO CONTRAST Routine 05/02/2021 9:15 AM MANAGER ED POCT GLUCOSE DEVICE Routine 05/02/2021 8 :31 AM MANAGER ED XR CHEST 1 VIEW IP Routine 05/02/2021 5:40 AM MANAGER ED POCT GLUCOSE DEVICE Routine 05/02/2021 4 :50 AM MANAGER ED TROPONIN T HIGH-SENSITIVITY 6-HOUR Timed 05/02/2021 4:43 AM MANAGER ED EGFR Routine 05/02/2021 4:43 AM MANAGER ED CBC WITHOUT DIFFERENTIAL Routine 05/02/2021 4:43 AM MANAGER ED BASIC METABOLIC PANEL Routine 05/02/2021 4:43 AM MANAGER ED TROPONIN T HIGH-SENSITIVITY 4-HR Timed 05/02/2021 2:34 AM MANAGER ED TROPONIN T HIGH-SENSITIVITY 2-HOUR Timed 05/02/2021 12:32 AM MANAGER ED APTT STAT 05/02/2021 12:32 AM MANAGER ED TYPE AND SCREEN Timed 05/02/2021 12:32 AM MANAGER ED LIPID PANEL Routine 05/02/2021 12:32 AM MANAGER ED TROPONIN T HIGH-SENSITIVITY SERIES (BASELINE, 2HR, 4HR, 6HR) Routine 05/01/2021 10:19 PM MANAGER ED EGFR Routine 05/01/2021 10:19 PM MANAGER ED DIFFERENTIAL AUTO STAT 05/01/2021 10:19 PM MANAGER ED PRO B-TYPE NATRIURETIC PEPTIDE STAT 05/01/2021 10:19 PM MANAGER ED CALCIUM, IONIZED STAT 05/01/2021 10:19 PM MANAGER ED CBC WITH AUTO DIFFERENTIAL STAT 05/01/2021 10:19 PM MANAGER ED APTT STAT 05/01/2021 10:19 PM MANAGER ED PROTIME-INR STAT 05/01/2021 10:19 PM MANAGER ED PHOSPHORUS Routine 05/01/2021 10:19 PM MANAGER ED MAGNESIUM Routine 05/01/2021 10:19 PM MANAGER ED BLOOD GAS, ARTERIAL STAT 05/01/2021 10:19 PM MANAGER ED COMPREHENSIVE METABOLIC PANEL Routine 05/01/2021 10:19 PM MANAGER ED POCT GLUCOSE DEVICE Routine 05/01/2021 9 :42 PM MANAGER ED XR CHEST 1 VIEW ED Urgent/IP Urgent 05/01/2021 8:28 PM MANAGER ED CRITICAL CARE Routine 05/01/2021 8:[address] elevation myocardial infarction (STEMI), unspecified artery (HCC) POCT GLUCOSE DEVICE Routine 05/01/2021 7 :10 PM MANAGER ED PERC INSRT INTRAORT BALL [id number] Routine 05/01/2021 6:[address] elevation myocardial infarction (STEMI), unspecified artery (HCC) PCI [place] [id number] Routine 05/01/2021 6:[address] elevation myocardial infarction (STEMI), unspecified artery (HCC) PERCUTAINEOUS TRANSLUMINAL CORONARY ANGIOPLASTY OF ONE MAJOR CORONARY Routine 05/01/2021 6:[address] elevation myocardial infarction (STEMI), unspecified artery (HCC) B CHECK SAMPLE STAT 04/30/2021 10:19 PM MANAGER ED documented in this encounter Results * (ABNORMAL) POCT glucose (06/03/2021 12:21 PM MANAGER ED) Glucose, POC 200(H) 70 - 199 mg/dL [facility] Blood 06/03/2021 12:2 1 PM MANAGER ED 06/03/2021 12:21 PM MANAGER ED us Robbie Celeste MD LAB POCT ORDERABLES - DEVICE Fi nal Result Performing Organization Address [facility] Co de Phone Number [facility] [id number] [facility] [place] [address] * (ABNORMAL) POCT glucose (06/03/2021 6:33 AM MANAGER ED) Glucose, POC 211(H) 70 - 199 mg/dL [facility] Blood 06/03/2021 6:33 AM MANAGER ED 06/03/2021 6:33 AM MANAGER ED us Robbie Celeste MD LAB POCT ORDERABLES - DEVICE Fi nal Result Performing Organization Address [facility] Co de Phone Number [facility] [id number] [facility] [place] [address] * eGFR (06/03/2021 3:04 AM MANAGER ED) eGFR 124 mL/min/1. 73 m2 [facility] Comment: Interpretive Data Reference [...] last reviewed 2021. Blood 06/03/2021 3:04 AM MANAGER ED 06/03/2021 3:56 AM MANAGER ED us Silviano Huddleston [employer] LAB BLOOD ORDERABLES Final Result [facility] [id number] [facility] [place] [address] * (ABNORMAL) Basic metabolic panel (06/03/2021 3:04 AM MANAGER ED) Pathologist [facility] Sodium 135 135 - 145 mmol/L [facility] Potassium, pl 3.7 3.3 - 4.9 mmol/L [facility] Chloride 105 97 - 110 mmol/L [facility] CO2 18(L) 22 - 32 mmol/L [facility] Anion gap 12 2 - 15 mmol/L [facility] BUN 11 8 - 25 mg/dL [facility] Creatinine 0.42(L) 0.80 - 1.30 mg/dL [facility] Glucose 140 70 - 199 mg/dL [facility] Comment: Interpretive Data Fasting glucose [...] 2017. Calcium 8.5 8.5 - 10.3 mg/dL [facility] Blood 06/03/2021 3:04 AM MANAGER ED 06/03/2021 3:56 AM MANAGER ED Silviano Huddleston [employer] LAB BLOOD ORDERABLES Final Result [facility] [id number] [facility] [place] [address] * (ABNORMAL) CBC without differential (06/03/2021 3:04 AM MANAGER ED) WBC 13.2(H) 3.8 - 9.9 K/cumm [facility] Hgb 9.2(L) 13.0 - 17.5 g/dL [facility] Hct 29.2(L) 38.9 - 50.3 % [facility] Plt 419(H) 150 - 400 K/cumm [facility] MPV 11.5 9.1 - 12.3 fL [facility] RBC 3.10(L) 4.30 - 5.80 M/cumm [facility] MCV 94.2 81.3 - 96.4 fL [facility] MCH 29.7 27.1 - 33.3 pg [facility] MCHC 31.5(L) 32.3 - 35.7 g/dL [facility] RDW CV 15.0(H) 11.1 - 14.9 % [facility] RDW SD 49.8(H) 35.7 - 48.1 fL [facility] NRBC abs 0.00 0.00 - 0.01 K/cumm [facility] Blood 06/03/2021 3:04 AM MANAGER ED 06/03/2021 3:55 AM MANAGER ED Silviano Huddleston [employer] LAB BLOOD ORDERABLES Final Result Performing Organization Address [facility] de Phone Number [facility] [place] [id number] [facility] [place] [address] * Magnesium (06/03/2021 3:04 AM MANAGER ED) Magnesium 1.8 1.4 - 2.5 mg/dL [facility] Blood 06/03/2021 3:04 AM MANAGER ED 06/03/2021 3:56 AM MANAGER ED Silviano Huddleston [employer] LAB BLOOD ORDERABLES Final Result Performing Organization Address [facility] de Phone Number [facility] [id number] [address] [facility] [place] [address] * Phosphorus (06/03/2021 3:04 AM MANAGER ED) Phosphorus, pl 3.0 2.3 - 4.5 mg/dL [facility] Blood 06/03/2021 3:04 AM MANAGER ED 06/03/2021 3:56 AM MANAGER ED Silviano Huddleston [employer] LAB BLOOD ORDERABLES Final Result Performing Organization Address [facility] de Phone Number [facility] [id number] [facility] [place] [address] * POCT glucose (06/02/2021 8:34 PM MANAGER ED) Glucose, POC 193 70 - 199 mg/dL [facility] Blood 06/02/2021 8:34 PM MANAGER ED 06/02/2021 8:34 PM MANAGER ED us Robbie Celeste MD LAB POCT ORDERABLES - DEVICE Fi nal Result Performing Organization Address City/[facility]/ZIP Co de Phone Number [facility] [place] [id number] [address] [facility] [place] [address] * (ABNORMAL) POCT glucose (06/02/2021 4:21 PM MANAGER ED) Glucose, POC 259(H) 70 - 199 mg/dL [facility] Blood 06/02/2021 4:21 PM MANAGER ED 06/02/2021 4:21 PM MANAGER ED us Robbie Celeste MD LAB POCT ORDERABLES - DEVICE Fi nal Result Performing Organization Address [facility] Co de Phone Number [facility] [id number] [facility] [place] [address] * (ABNORMAL) POCT glucose (06/02/2021 11:37 AM MANAGER ED) Glucose, POC 251(H) 70 - 199 mg/dL [facility] Blood 06/02/2021 11:3 7 AM MANAGER ED 06/02/2021 11:37 AM MANAGER ED us Robbie Celeste MD LAB POCT ORDERABLES - DEVICE Fi nal Result Performing Organization Address [facility] Co de Phone Number [place] [id number] [place] [address] * POCT glucose (06/02/2021 6:46 AM MANAGER ED) Glucose, POC 137 70 - 199 mg/dL [facility] Blood 06/02/2021 6:46 AM MANAGER ED 06/02/2021 6:46 AM MANAGER ED us Rhina Granados MD LAB POCT ORDERABLES - DEVICE Final Result Performing Organization Address City/[facility]/ZIP Co de Phone Number [facility] [id number] [facility] [place] [address] * eGFR (06/02/2021 5:37 AM MANAGER ED) eGFR 116 mL/min/1. 73 m2 [facility] Comment: Interpretive Data Reference Interval [...] last reviewed 2021. Blood 06/02/2021 5:37 AM MANAGER ED 06/02/2021 5:49 AM MANAGER ED us Silviano Huddleston [employer] LAB BLOOD ORDERABLES Final Result [facility] [id number] [facility] [place] [address] * (ABNORMAL) Basic metabolic panel (06/02/2021 5:37 AM MANAGER ED) Sodium 135 135 - 145 mmol/L [facility] Potassium, pl 4.2 3.3 - 4.9 mmol/L [facility] Chloride 104 97 - 110 mmol/L [facility] CO2 21(L) 22 - 32 mmol/L [facility] Anion gap 10 2 - 15 mmol/L [facility] BUN 13 8 - 25 mg/[facility] Creatinine 0.52(L) 0.80 - 1.30 mg/dL [facility] Glucose 139 70 - 199 mg/dL [facility] Comment: Interpretive Data Fasting glucose >/= [...] 2017. Calcium 8.7 8.5 - 10.3 mg/dL [facility] Blood 06/02/2021 5:37 AM MANAGER ED 06/02/2021 5:49 AM MANAGER ED us Silviano Huddleston [employer] LAB BLOOD ORDERABLES Final Result [facility] [address] Department [place] [address] * (ABNORMAL) CBC without differential (06/02/2021 5:37 AM MANAGER ED) WBC 15.4(H) 3.8 - 9.9 K/cumm [facility] Hgb 9.8(L) 13.0 - 17.5 g/dL [facility] Hct 30.5(L) 38.9 - 50.3 % [facility] Plt 434(H) 150 - 400 K/cumm [facility] MPV 11.0 9.1 - 12.3 fL [facility] RBC 3.25(L) 4.30 - 5.80 M/cumm [facility] MCV 93.8 81.3 - 96.4 fL [facility] MCH 30.2 27.1 - 33.3 pg [facility] MCHC 32.1(L) 32.3 - 35.7 g/dL [facility] RDW CV 14.6 11.1 - 14.9 % [facility] RDW SD 49.0(H) 35.7 - 48.1 fL [facility] NRBC abs 0.00 0.00 - 0.01 K/cumm [facility] Blood 06/02/2021 5:37 AM MANAGER ED 06/02/2021 5:50 AM MANAGER ED Silviano Huddleston [employer] LAB BLOOD ORDERABLES Final Result Performing Organization Address [facility] Co de Phone Number [facility] [id number] [address] [facility] [place] [address] * Magnesium (06/02/2021 5:37 AM MANAGER ED) Pathologist [facility] Magnesium 1.6 1.4 - 2.5 mg/dL [facility] Blood 06/02/2021 5:37 AM MANAGER ED 06/02/2021 5:49 AM MANAGER ED Silviano Huddleston [employer] LAB BLOOD ORDERABLES Final Result Performing Organization Address [facility] de Phone Number [facility] [id number] [address] [facility] [place] [address] * Phosphorus (06/02/2021 5:37 AM MANAGER ED) Pathologist [facility] Phosphorus, pl 2.7 2.3 - 4.5 mg/dL [facility] Blood 06/02/2021 5:37 AM MANAGER ED 06/02/2021 5:49 AM MANAGER ED Silviano Huddleston [employer] LAB BLOOD ORDERABLES Final Result Performing Organization Address [facility] de Phone Number [facility] [id number] [facility] [place] [address] * Vancomycin level trough (06/02/2021 5:37 AM MANAGER ED) Vancomycin trough 18.8 10.0 - 20.0 mcg/mL [facility] Blood 06/02/2021 5:37 AM MANAGER ED 06/02/2021 5:49 AM MANAGER ED Angelo Vance MD LAB BLOOD ORDERABLES Fin al Result Performing Organization Address [facility] Co de Phone Number [facility] [id number] [facility] [place] [address] * POCT glucose (06/02/2021 2:07 AM MANAGER ED) Glucose, POC 120 70 - 199 mg/dL [facility] Blood 06/02/2021 2:07 AM MANAGER ED 06/02/2021 2:07 AM MANAGER ED Rhina Granadso MD LAB POCT ORDERABLES - DEVICE Final Result Performing Organization Address [facility] de Phone Number [facility] [address] [address] [facility] [place] [address] [place] [address] * POCT glucose (06/01/2021 9:18 PM MANAGER ED) Glucose, POC 166 70 - 199 mg/dL [facility] Blood 06/01/2021 9:18 PM MANAGER ED 06/01/2021 9:18 PM MANAGER ED Rhina Granados MD LAB POCT ORDERABLES - DEVICE Final Result Performing Organization Address [facility] Co de Phone Number [facility] [address] [address] [place] [address] [place] [address] * (ABNORMAL) POCT glucose (06/01/2021 5:38 PM MANAGER ED) Glucose, POC 219(H) 70 - 199 mg/dL [facility] Blood 06/01/2021 5:38 PM MANAGER ED 06/01/2021 5:38 PM MANAGER ED Rhina Granados MD LAB POCT ORDERABLES - DEVICE Final Result Performing Organization Address [facility] Co de Phone Number HENRIK DON [address] [facility] [place] [address] * POCT glucose (06/01/2021 11:45 AM MANAGER ED) Glucose, POC 155 70 - 199 mg/dL HENRIK Blood 06/01/2021 11:4 5 AM MANAGER ED 06/01/2021 11:45 AM MANAGER ED us Rhina Granados MD LAB POCT ORDERABLES - DEVICE Final Result HENRIK [address] Department [place] [address] * eGFR (06/01/2021 11:32 AM MANAGER ED) eGFR 120 mL/min/1. 73 m2 HENRIK Comment: Interpretive Data [...] reviewed 2021. Blood 06/01/2021 11:3 2 AM MANAGER ED 06/01/2021 12:30 PM MANAGER ED Silviano Huddleston [employer]LE[employer] LAB BLOOD ORDERABLES Final Result HENRIK DON [address] Department [place] [address] * (ABNORMAL) Basic metabolic panel (06/01/2021 11:32 AM MANAGER ED) Sodium 135 135 - 145 mmol/L [facility] Potassium, pl 3.8 3.3 - 4.9 mmol/L [...] 2017. Calcium 8.7 8.5 - 10.3 mg/dL [facility] Blood 06/01/2021 11:3 2 AM MANAGER ED 06/01/2021 12:30 PM MANAGER ED Silviano Huddleston [employer]LE[employer] LAB BLOOD ORDERABLES Final Result HENRIK DON [address] Department [place] [address] * (ABNORMAL) CBC without differential (06/01/2021 11:32 AM MANAGER ED) WBC 16.3(H) 3.8 - 9.9 K/cumm C[facility]ER [...] [facility] CH Blood 06/01/2021 11:3 2 AM MANAGER ED 06/01/2021 12:29 PM MANAGER ED Silviano Huddleston COLLEGE [employer] LAB BLOOD ORDERABLES Final Result Performing Organization Address City/[facility] Co de Phone Number HENRIK DON [address] [facility] [address], [place] [id number] * Magnesium (06/01/2021 11:32 AM MANAGER ED) Magnesium 1.7 1.4 - 2.5 mg/dL [facility] Blood 06/01/2021 11:3 2 AM MANAGER ED 06/01/2021 12:30 PM MANAGER ED Silviano Huddleston COLLE[employer] LAB BLOOD ORDERABLES Final Result Performing Organization Address City/[facility] Co de Phone Number HENRIK DON [address] [facility] [address] [place], [place] [id number] * Phosphorus (06/01/2021 11:32 AM MANAGER ED) Phosphorus, pl 2.6 2.3 - 4.5 mg/dL [facility] Blood 06/01/2021 11:3 2 AM MANAGER ED 06/01/2021 12:30 PM MANAGER ED Silviano Huddleston NP LAB BLOOD ORDERABLES Final Result HENRIK DON [address] Department [place] [address] * US Vein Duplex Lower Extremity Bilateral Complete (06/01/2021 9:20 AM MANAGER ED) Anatomical Region Laterality Modality Vascular Bilateral Ultrasound 06/01/2021 9:55 AM MANAGER ED Impressions 06/01/2021 9:55 AM MANAGER ED No evidence of deep vein thrombosis in bilateral lower extremities. Electronically signed by: Humphrey Mojica M.D. Narrative 06/01/2021 9:55 AM MANAGER ED EXAMINATION: BILATERAL LOWER EXTREMITY VENOUS DUPLEX EXAM [...] extremities. Electronically signed by: Humphrey Mojica M.D. Silviano Huddleston COLLEGE TUTOR IMG US PROCEDURES Final Re sult * POCT glucose (06/01/2021 6:30 AM MANAGER ED) Glucose, POC 116 70 - 199 mg/dL HEN[facility]K DON Blood 06/01/2021 6:30 AM MANAGER ED 06/01/2021 6:30 AM MANAGER ED us Rhina Granados MD LAB POCT ORDERABLES - DEVICE Final Result Performing Organization Address City/[facility] Co de Phone Number HENRIK DON [address] [place] [address] * POCT glucose (06/01/2021 2:52 AM MANAGER ED) Glucose, POC 114 70 - 199 mg/dL [facility] Blood 06/01/2021 2:52 AM MANAGER ED 06/01/2021 2:52 AM MANAGER ED us Rhina Granados MD LAB POCT ORDERABLES - DEVICE Final Result Performing Organization Address [facility] de Phone Number HENRIK DON [address] [place] [address] * POCT glucose (05/31/2021 9:47 PM MANAGER ED) Glucose, POC 171 70 - 199 mg/dL [facility] Blood 05/31/2021 9:47 PM MANAGER ED 05/31/2021 9:47 PM MANAGER ED us Rhina Granados MD LAB POCT ORDERABLES - DEVICE Final Result Performing Organization Address [facility] Co de Phone Number HENRIK DON [address] [place] [address] * POCT glucose (05/31/2021 6:05 PM MANAGER ED) Glucose, POC 138 70 - 199 mg/dL [facility] Blood 05/31/2021 6:05 PM MANAGER ED 05/31/2021 6:05 PM MANAGER ED us Rhina Granados MD LAB POCT ORDERABLES - DEVICE Final Result Performing Organization Address [facility] Co de Phone Number HENRIK DON [address] [facility] [place] [address] * POCT glucose (05/31/2021 12:59 PM MANAGER ED) Glucose, POC 157 70 - 199 mg/dL [facility] Blood 05/31/2021 12:5 9 PM MANAGER ED 05/31/2021 12:59 PM MANAGER ED Rhina Granados MD LAB POCT ORDERABLES - DEVICE Final Result HENRIK [address] [facility] [place] [address] * POCT glucose (05/31/2021 8:04 AM MANAGER ED) Glucose, POC 126 70 - 199 mg/dL [facility] Blood 05/31/2021 8:04 AM MANAGER ED 05/31/2021 8:04 AM MANAGER ED Rhina Granados MD LAB POCT ORDERABLES - DEVICE Final Result Performing Organization Address [facility] Co de Phone Number HENRIK [address] [facility] [place] [address] * XR Chest 1 Vw Portable (05/31/2021 6:39 AM MANAGER ED) Anatomical Region Laterality Modality Body, Chest N/A Computed Radiogr aphy 05/31/2021 7:02 AM MANAGER ED Impressions 05/31/2021 7:02 AM MANAGER ED 1. ??No significant interval change from prior. 2. ??Multifocal bilateral airspace opacities most suggestive of Covid 19 pneumonia. 2. ??Stable mild cardiomegaly. Electronically signed by: Richard Lopez II, D.O. Narrative 05/31/2021 7:02 AM MANAGER ED EXAMINATION: XR CHEST 1 VIEW DATE: 05/31/2021 [...] by: Richard Lopez II, D.O. Erika Mayer COLLEGE TUTOR IMG XR PROCEDURES Luz alison Result * eGFR (05/31/2021 5:39 AM MANAGER ED) [facility] eGFR 123 mL/min/1.7 3 m2 HENRIK DON [...] last reviewed 2020 Blood 05/31/2021 5:39 AM MANAGER ED 05/31/2021 6:15 AM MANAGER ED us Silviano Huddleston COLLEGE [employer]OR LAB BLOOD ORDERABLES Final Result [facility] [address] Department [place] [address] * (ABNORMAL) Basic metabolic panel (05/31/2021 5:39 AM MANAGER ED) Sodium 132(L) 135 - 145 mmol/L [facility] Potassium, pl 4.2 3.3 - 4.9 mmol/L [facility] Chloride 102 97 - 110 mmol/L [facility] CO2 18(L) 22 - 32 mmol/L [facility] Anion gap 12 2 - 15 mmol/L [facility] BUN 16 8 - 25 mg/dL [facility] Creatinine 0.46(L) 0.80 - 1.30 mg/dL [facility] Glucose 118 70 - 199 mg/dL [facility] Comment: Interpretive [...] 10.3 mg/dL [facility] Blood 05/31/2021 5:39 AM MANAGER ED 05/31/2021 6:15 AM MANAGER ED Silviano Huddleston COLLEGE T[employer]OR LAB BLOOD ORDERABLES Final Result [facility] DON [address] [place] [address] * (ABNORMAL) CBC without differential (05/31/2021 5:39 AM MANAGER ED) WBC 18.4(H) 3.8 - 9.9 K/cumm [facility] Hgb 10.4(L) 13.0 - 17.5 g/dL [facility] Hct 32.1(L) 38.9 - 50.3 % [facility] Plt 470(H) 150 - 400 K/cumm [facility] MPV 11.3 9.1 - 12.3 fL [facility] RBC 3.46(L) 4.30 - 5.80 M/cumm [facility] MCV 92.8 81.3 - 96.4 fL [facility] MCH 30.1 27.1 - 33.3 pg [facility] MCHC 32.4 32.3 - 35.7 g/dL [facility] RDW CV 14.1 11.1 - 14.9 % [facility] RDW SD 46.8 35.7 - 48.1 fL [facility] NRBC abs 0.00 0.00 - 0.01 K/cumm [facility] Blood 05/31/2021 5:39 AM MANAGER ED 05/31/2021 6:15 AM MANAGER ED Silviano Huddleston COLLEGE [employer]OR LAB BLOOD ORDERABLES Final Result H[facility] DON [address] [place] [address] * Magnesium (05/31/2021 5:39 AM MANAGER ED) Magnesium 2.0 1.4 - 2.5 mg/dL [facility] Blood 05/31/2021 5:39 AM MANAGER ED 05/31/2021 6:15 AM MANAGER ED Silviano Huddleston COLLEGE T[employer]OR LAB BLOOD ORDERABLES Final Result Performing Organization Address City/[facility]/ZIP Co de Phone Number HENRIK DON [address] [address] [facility] [place] [address] * Phosphorus (05/31/2021 5:39 AM MANAGER ED) Phosphorus, pl 2.7 2.3 - 4.5 mg/dL [facility] Blood 05/31/2021 5:39 AM MANAGER ED 05/31/2021 6:15 AM MANAGER ED Silviano Huddleston COLLEGE T[employer]OR LAB BLOOD ORDERABLES Final Result Performing Organization Address [facility] de Phone Number HENRIK DON [address] [address] [facility] [place] [address] * Vancomycin level trough Draw trough 30 minutes prior to dose. (05/31/2021 5:39 AM MANAGER ED) Vancomycin trough 19.0 10.0 - 20.0 mcg/mL [facility] Blood 05/31/2021 5:39 AM MANAGER ED 05/31/2021 10:02 PM MANAGER ED Narrative [facility] - 05/31/2021 10:16 PM MANAGER ED Draw trough 30 minutes prior to dose. Lc Simons MD LAB BLOOD ORDERABLES Final R esult Performing Organization Address [facility] Co de Phone Number HENRIK DON [address] [facility] [place] [address] * POCT glucose (05/30/2021 8:09 PM MANAGER ED) Glucose, POC 193 70 - 199 mg/dL [facility] Blood 05/30/2021 8:09 PM MANAGER ED 05/30/2021 8:09 PM MANAGER ED Lc Simons MD LAB POCT ORDERABLES - DEVICE Final Result Performing Organization Address City/[facility] Co de Phone Number HENRIK DON [address] [place] [address] * Critical Care (05/30/2021 8:03 PM MANAGER ED) Narrative Austin Hoffman MD - 05/30/2021 8:03 PM MANAGER ED Marek Mei NP ? 05/31/2021 ??5:42 AM [...] plan with the ICU team and other medical/aws consultant staff, making frequent assessments and decisions [...] Result * POCT glucose (05/30/2021 5:17 PM MANAGER ED) Glucose, POC 162 70 - 199 mg/dL [facility] Blood 05/30/2021 5:17 PM MANAGER ED 05/30/2021 5:17 PM MANAGER ED Lc Simons MD LAB POCT ORDERABLES - DEVICE Final Result Performing Organization Address [facility] de Phone Number [facility] [address] [facility] [place] [address] * POCT glucose (05/30/2021 12:08 PM MANAGER ED) Glucose, POC 190 70 - 199 mg/dL [facility] Blood 05/30/2021 12:0 8 PM MANAGER ED 05/30/2021 12:08 PM MANAGER ED Lc Simons MD LAB POCT ORDERABLES - DEVICE Final Result Performing Organization Address [facility] de Phone Number [facility] [address] [place] [address] * POCT glucose (05/30/2021 7:54 AM MANAGER ED) Glucose, POC 125 70 - 199 mg/dL [facility] Blood 05/30/2021 7:54 AM MANAGER ED 05/30/2021 7:54 AM MANAGER ED Lc Simons MD LAB POCT ORDERABLES - DEVICE Final Result Performing Organization Address [facility] de Phone Number [facility] [address] [address] [facility] [place] [address] * Critical Care (05/30/2021 7:00 AM MANAGER ED) Narrative Trinh Yeh MD - 05/30/2021 7:00 AM MANAGER ED Erika Mayer NP ? 05/30/2021 ??6:47 PM Critical Care Performed by: Erika Mayer NP Authorized by: Moreno, Erika Netta, COLLEGE TUTOR CRITICAL CARE: ??Team: ??FLOREN[place]ANE ??Shift: ??AM ??Level of Billing: ??Critical Care [...] plan with the ICU team and other medical/aws consultant staff, making frequent assessments and decisions [...] Final Result * eGFR (05/30/2021 4:05 AM MANAGER ED) eGFR 122 mL/min/1.7 3 m2 [facility] Comment: Interpretive [...] last reviewed 2020 Blood 05/30/2021 4:05 AM MANAGER ED 05/30/2021 4:17 AM MANAGER ED us Silviano Huddleston COLLEGE [employer]OR LAB BLOOD ORDERABLES Final Result [facility] [address] Department [place] [address] * (ABNORMAL) Basic metabolic panel (05/30/2021 4:05 AM MANAGER ED) Sodium 131(L) 135 - 145 mmol/L [facility] Potassium, pl 4.0 3.3 - 4.9 mmol/L [facility] Chloride 100 97 - 110 mmol/L [facility] CO2 20(L) 22 - 32 mmol/L [facility] Anion gap 11 2 - 15 mmol/L [facility] BUN 20 8 - 25 mg/dL [facility] Creatinine 0.47(L) 0.80 - 1.30 mg/dL [facility] Glucose 144 70 - 199 mg/dL [facility] Comment: Interpretive Data Fasting glucose [...] 2017. Calcium 8.6 8.5 - 10.3 mg/dL [facility] Blood 05/30/2021 4:05 AM MANAGER ED 05/30/2021 4:17 AM MANAGER ED us Silviano Huddleston COLLEGE [employer]OR LAB BLOOD ORDERABLES Final Result [facility] [address] Department [place] [address] * (ABNORMAL) CBC without differential (05/30/2021 4:05 AM MANAGER ED) WBC 14.4(H) 3.8 - 9.9 K/cumm [facility] Hgb 10.0(L) 13.0 - 17.5 g/dL [facility] Hct 29.8(L) 38.9 - 50.3 % [facility] Plt 467(H) 150 - 400 K/cumm [facility] MPV 11.2 9.1 - 12.3 fL [facility] RBC 3.23(L) 4.30 - 5.80 M/cumm [facility] MCV 92.3 81.3 - 96.4 fL [facility] MCH 31.0 27.1 - 33.3 pg [facility] MCHC 33.6 32.3 - 35.7 g/dL [facility] RDW CV 14.0 11.1 - 14.9 % [facility] RDW SD 46.5 35.7 - 48.1 fL [facility] NRBC abs 0.00 0.00 - 0.01 K/cumm [facility] Blood 05/30/2021 4:05 AM MANAGER ED 05/30/2021 4:17 AM MANAGER ED Silviano Huddleston COLLEGE T[employer]OR LAB BLOOD ORDERABLES Final Result Performing Organization Address [facility] Co de Phone Number HENRIK [address] [address] [facility] [place] [address] * Magnesium (05/30/2021 4:05 AM MANAGER ED) Pathologist [facility] Magnesium 1.9 1.4 - 2.5 mg/dL [facility] Blood 05/30/2021 4:05 AM MANAGER ED 05/30/2021 4:17 AM MANAGER ED Silviano Huddleston COLLEGE TUTOR LAB BLOOD ORDERABLES Final Result Performing Organization Address [facility] de Phone Number [facility] [address] [place] [address] * Phosphorus (05/30/2021 4:05 AM MANAGER ED) Pathologist [facility] Phosphorus, pl 2.4 2.3 - 4.5 mg/dL [facility] Blood 05/30/2021 4:05 AM MANAGER ED 05/30/2021 4:17 AM MANAGER ED Silviano Huddleston COLLEGE TUTOR LAB BLOOD ORDERABLES Final Result Performing Organization Address [facility] de Phone Number [facility] [address] [facility] [place] [address] * (ABNORMAL) POCT glucose (05/29/2021 9:43 PM MANAGER ED) Glucose, POC 220(H) 70 - 199 mg/dL [facility] Blood 05/29/2021 9:43 PM MANAGER ED 05/29/2021 9:43 PM MANAGER ED us Lc Simons MD LAB POCT ORDERABLES - DEVICE Final Result Performing Organization Address City/State/[facility] Co [place] Phone Number HENRIK [address] [facility] Department [place] [address] * Critical Care (05/29/2021 8:51 PM MANAGER ED) Narrative Austin Hoffman MD - 05/29/2021 8:51 PM MANAGER ED Marek Mei NP ? 05/30/2021 ??5:54 AM [...] plan with the ICU team and other medical/aws consultant staff, making frequent assessments and decisions [...] in the medical record us Marek Mei COLLEGE TUTOR IN CLINIC/BEDSIDE ORDER REJI Final Result * Vancomycin level trough Draw trough 30 minutes prior to 4th dose. (05/29/2021 5:09 PM MANAGER ED) Vancomycin trough 13.8 10.0 - 20.0 mcg/mL [facility] Blood 05/29/2021 5:09 PM MANAGER ED 05/29/2021 5:11 PM MANAGER ED Narrative [facility] - 05/29/2021 5:41 PM MANAGER ED Draw trough 30 minutes prior to 4th dose. Karolina Muñoz COLLEGE TUTOR LAB BLOOD ORDERABLE S Final Result Performing Organization Address [facility] Co de Phone Number [facility] [address] [facility] [place] [address] * (ABNORMAL) POCT glucose (05/29/2021 4:56 PM MANAGER ED) Glucose, POC 234(H) 70 - 199 mg/dL [facility] Blood 05/29/2021 4:56 PM MANAGER ED 05/29/2021 4:56 PM MANAGER ED Lc Simons MD LAB POCT ORDERABLES - DEVICE Final Result Performing Organization Address [facility] Co de Phone Number [facility] [address] [place] [address] * Beta-hydroxybutyrate (05/29/2021 2:42 PM MANAGER ED) Beta-Hydroxybut yrate <0.2 <=0.5 mmol/L [facility] Blood 05/29/2021 2:42 PM MANAGER ED 05/29/2021 2:42 PM MANAGER ED Elena Kelly NP LAB BLOOD ORDERABLES Final Result Performing Organization Address [facility] Co de Phone Number [facility] [address] [facility] [place] [phone] * (ABNORMAL) POCT glucose (05/29/2021 11:55 AM MANAGER ED) Glucose, POC 274(H) 70 - 199 mg/dL [facility] Blood 05/29/2021 11:5 5 AM MANAGER ED 05/29/2021 11:55 AM MANAGER ED Lc Simons MD LAB POCT ORDERABLES - DEVICE Final Result Performing Organization Address [facility] Co de Phone Number HENRIK [address] [place] [address] * POCT glucose (05/29/2021 8:01 AM MANAGER ED) Glucose, POC 91 70 - 199 mg/dL [facility] Blood 05/29/2021 8:01 AM MANAGER ED 05/29/2021 8:01 AM MANAGER ED Lc Simons MD LAB POCT ORDERABLES - DEVICE Final Result Performing Organization Address [facility] Co de Phone Number HENRIK [address] [address] [facility] [place] [address] * Critical Care (05/29/2021 7:00 AM MANAGER ED) Narrative Dominiuqe Wilkinson MD - 05/29/2021 7:00 AM MANAGER ED Elena Kelly NP ? 05/29/2021 ??6:26 PM [...] plan with the ICU team and other medical/aws consultant staff, making frequent assessments and decisions [...] Final Result * eGFR (05/29/2021 5:28 AM MANAGER ED) [facility] eGFR 133 mL/min/1.7 3 m2 HENRIK DON Comment: Interpretive [...] last reviewed 2020 Blood 05/29/2021 5:28 AM MANAGER ED 05/29/2021 6:24 AM MANAGER ED us Silviano Huddleston COLLEGE TUTOR LAB BLOOD ORDERABLES Final Result [facility] [address] Department [place] [address] * (ABNORMAL) Basic metabolic panel (05/29/2021 5:28 AM MANAGER ED) Sodium 130(L) 135 - 145 mmol/L [facility] [...] 10.3 mg/dL [facility] Blood 05/29/2021 5:28 AM MANAGER ED 05/29/2021 6:24 AM MANAGER ED Silviano Huddleston COLLEGE TUTOR LAB BLOOD ORDERABLES Final Result [facility] DON [address] [place] [address] * (ABNORMAL) CBC without differential (05/29/2021 5:28 AM MANAGER ED) WBC 16.1(H) 3.8 - 9.9 K/cumm [facility] Hgb 10.1(L) 13.0 - 17.5 g/dL [facility] Hct 31.3(L) 38.9 - 50.3 % [facility] Plt 508(H) 150 - 400 K/cumm [facility] MPV 11.3 9.1 - 12.3 fL [facility] RBC 3.41(L) 4.30 - 5.80 M/cumm [facility] MCV 91.8 81.3 - 96.4 fL [facility] MCH 29.6 27.1 - 33.3 pg [facility] MCHC 32.3 32.3 - 35.7 g/dL [facility] RDW CV 13.7 11.1 - 14.9 % [facility] RDW SD 45.6 35.7 - 48.1 fL [facility] NRBC abs 0.00 0.00 - 0.01 K/cumm [facility] Blood 05/29/2021 5:28 AM MANAGER ED 05/29/2021 5:53 AM MANAGER ED Silviano Huddleston COLLEGE TUTOR LAB BLOOD ORDERABLES Final Result [facility] DON [address] [place] [address] * Magnesium (05/29/2021 5:28 AM MANAGER ED) Magnesium 1.8 1.4 - 2.5 mg/dL [facility] Blood 05/29/2021 5:28 AM MANAGER ED 05/29/2021 6:24 AM MANAGER ED Silviano Yariel Huddleston COLLEGE TUTOR LAB BLOOD ORDERABLES Final Result Performing Organization Address [facility] Co de Phone Number HENRIK DON [address] [facility] [place] [address] * Phosphorus (05/29/2021 5:28 AM MANAGER ED) Phosphorus, pl 2.7 2.3 - 4.5 mg/dL [facility] DON Blood 05/29/2021 5:28 AM MANAGER ED 05/29/2021 6:24 AM MANAGER ED Silviano Huddleston COLLEGE TUTOR LAB BLOOD ORDERABLES Final Result Performing Organization Address [facility] de Phone Number HENRIK DON [address] [place] [address] * Critical Care (05/28/2021 10:32 PM MANAGER ED) Narrative Austin Hoffman MD - 05/28/2021 10:32 PM MANAGER ED Karolina Muñoz NP ? 05/28/2021 10:34 PM Critical Care Performed by: Karolina Muñoz NP Authorized by: Karolina Muñoz NP CRITICAL CARE: ??Team: ??CHNE ??Shift: [...] plan with the ICU team and other medical/aws consultant staff, making frequent assessments and decisions [...] spent time documenting in the medical record Karolina Muñoz NP IN CLINIC/BEDSIDE O RDERABLES Final Result * (ABNORMAL) POCT glucose (05/28/2021 7:55 PM MANAGER ED) Glucose, POC 205(H) 70 - 199 mg/dL [facility] Blood 05/28/2021 7:55 PM MANAGER ED 05/28/2021 7:55 PM MANAGER ED Lc Simons MD LAB POCT ORDERABLES - DEVICE Final Result Performing Organization Address [facility] Co de Phone Number [facility] [address] [facility] [place] [address] * (ABNORMAL) POCT glucose (05/28/2021 5:47 PM MANAGER ED) Glucose, POC 244(H) 70 - 199 mg/dL [facility] Blood 05/28/2021 5:47 PM MANAGER ED 05/28/2021 5:47 PM MANAGER ED Lc Simons MD LAB POCT ORDERABLES - DEVICE Final Result Performing Organization Address [facility] Co de Phone Number [facility] [address] [facility] [place] [address] * POCT glucose (05/28/2021 11:53 AM MANAGER ED) Glucose, POC 131 70 - 199 mg/dL [facility] DON Blood 05/28/2021 11:5 3 AM MANAGER ED 05/28/2021 11:53 AM MANAGER ED us Lc Simons MD LAB POCT ORDERABLES - DEVICE Final Result Performing Organization Address City/State/ZIP [place] Phone Number HENRIK [address] Department [place] [address] * Critical Care (05/28/2021 11:04 AM MANAGER ED) Narrative Alejandro Gonzalez NP - 05/28/2021 11:04 AM MANAGER ED Alejadnro Gonzalez NP ? 05/28/2021 11:55 AM Critical [...] plan with the ICU team and other medical/aws consultant staff, making frequent assessments and decisions [...] Result * POCT glucose (05/28/2021 9:49 AM MANAGER ED) Glucose, POC 117 70 - 199 mg/dL [facility] Blood 05/28/2021 9:49 AM MANAGER ED 05/28/2021 9:49 AM MANAGER ED Lc Simons MD LAB POCT ORDERABLES - DEVICE Final Result Performing Organization Address [facility] Co de Phone Number [facility] [address] [place] [address] * POCT glucose (05/28/2021 6:42 AM MANAGER ED) Glucose, POC 121 70 - 199 mg/dL [facility] Blood 05/28/2021 6:42 AM MANAGER ED 05/28/2021 6:42 AM MANAGER ED Lc Simons MD LAB POCT ORDERABLES - DEVICE Final Result Performing Organization Address [facility] de Phone Number [facility] [address] [place] [address] * XR Chest 1 Vw Portable (05/28/2021 6:13 AM MANAGER ED) Anatomical Region Laterality Modality Body, Chest N/A Computed Radiogr aphy 05/28/2021 8:29 AM MANAGER ED Impressions 05/28/2021 8:29 AM MANAGER ED Slight improved aeration especially in the left lung.. Electronically signed by: Deacon Cummings M.D. Narrative 05/28/2021 8:29 AM MANAGER ED EXAMINATION: XR CHEST 1 VIEW DATE: 05/28/2021 [...] lung.. Electronically signed by: Deacon Cummings M.D. Rhina Granados MD IMG XR PROCEDURES Final Resu lt * POCT glucose (05/28/2021 4:40 AM MANAGER ED) Glucose, POC 116 70 - 199 mg/dL [facility] Blood 05/28/2021 4:40 AM MANAGER ED 05/28/2021 4:40 AM MANAGER ED us Lc Simons MD LAB POCT ORDERABLES - DEVICE Final Result [facility] [address] Department [place] [address] * eGFR (05/28/2021 2:47 AM MANAGER ED) eGFR 130 mL/min/1.7 3 m2 [facility] Comment: Interpretive Data Reference Interval [...] last reviewed 2020 Blood 05/28/2021 2:47 AM MANAGER ED 05/28/2021 3:15 AM MANAGER ED us Silviano Huddleston [employer] LAB BLOOD ORDERABLES Final Result Performing Organization Address City/State/[facility] Co de Phone Number [facility] [address] Department [place] [address] * (ABNORMAL) Basic metabolic panel (05/28/2021 2:47 AM MANAGER ED) Sodium 135 135 - 145 mmol/L [facility] Potassium, pl 3.7 3.3 - 4.9 mmol/L [facility] Chloride 107 97 - 110 mmol/L [facility] CO2 17(L) 22 - 32 mmol/L [facility] Anion gap 11 2 - 15 mmol/L [facility] BUN 19 8 - 25 mg/dL [facility] Creatinine 0.40(L) 0.80 - 1.30 mg/dL [facility] Glucose 68(L) 70 - 199 mg/dL [facility] [...] Calcium 7.7(L) 8.5 - 10.3 mg/dL [facility] Blood 05/28/2021 2:47 AM MANAGER ED 05/28/2021 3:06 AM MANAGER ED Silviano Huddleston [employer] LAB BLOOD ORDERABLES Final Result Performing Organization Address City/[facility]/ZIP Co de Phone Number [facility] [address] [place] [address] * (ABNORMAL) CBC without differential (05/28/2021 2:47 AM MANAGER ED) WBC 12.1(H) 3.8 - 9.9 K/cumm [facility] Hgb 11.2(L) 13.0 - 17.5 g/dL [facility] Hct 34.3(L) 38.9 - 50.3 % [facility] Plt 468(H) 150 - 400 K/cumm [facility] MPV 11.0 9.1 - 12.3 fL [facility] RBC 3.74(L) 4.30 - 5.80 M/cumm [facility] MCV 91.7 81.3 - 96.4 fL [facility] MCH 29.9 27.1 - 33.3 pg [facility] MCHC 32.7 32.3 - 35.7 g/dL [facility] RDW CV 13.3 11.1 - 14.9 % [facility] RDW SD 43.7 35.7 - 48.1 fL [facility] NRBC abs 0.00 0.00 - 0.01 K/cumm [facility] Blood 05/28/2021 2:47 AM MANAGER ED 05/28/2021 3:06 AM MANAGER ED Silviano Huddleston NP LAB BLOOD ORDERABLES Final Result Performing Organization Address City/[facility]/ZIP Co de Phone Number [facility] [address] Department [employer] [place], [place] [id number] * Magnesium (05/28/2021 2:47 AM MANAGER ED) Magnesium 1.5 1.4 - 2.5 mg/dL [facility] Blood 05/28/2021 2:47 AM MANAGER ED 05/28/2021 3:06 AM MANAGER ED Silviano Huddleston [employer] LAB BLOOD ORDERABLES Final Result Performing Organization Address City/[facility]/ZIP Co de Phone Number [facility] [address] [place] [address] * Phosphorus (05/28/2021 2:47 AM MANAGER ED) Phosphorus, pl 2.7 2.3 - 4.5 mg/dL [facility] Blood 05/28/2021 2:47 AM MANAGER ED 05/28/2021 3:06 AM MANAGER ED Silviano Huddleston [employer] LAB BLOOD ORDERABLES Final Result Performing Organization Address [facility] Co de Phone Number [facility] [address] [place] [address] * (ABNORMAL) Vancomycin level trough Draw trough 30 minutes prior to dose. (05/28/2021 2:47 AM MANAGER ED) Vancomycin trough 9.3(L) 10.0 - 20.0 mcg/mL [facility] Blood 05/28/2021 2:47 AM MANAGER ED 05/28/2021 3:06 AM MANAGER ED Narrative [facility] - 05/28/2021 3:28 AM MANAGER ED Draw trough 30 minutes prior to dose. Karolina Muñoz [employer]LE[employer] LAB BLOOD ORDERABLE S Final Result Performing Organization Address City/[facility]/ZIP Co de Phone Number [facility] [address] [facility] [place] [address] * POCT glucose (05/28/2021 1:22 AM MANAGER ED) Glucose, POC 109 70 - 199 mg/dL [facility] Blood 05/28/2021 1:22 AM MANAGER ED 05/28/2021 1:22 AM MANAGER ED Lc Simosn MD LAB POCT ORDERABLES - DEVICE Final Result Performing Organization Address [facility] Co de Phone Number [facility] [address] Department [place] [address] * POCT glucose (05/27/2021 10:17 PM MANAGER ED) Glucose, POC 83 70 - 199 mg/dL [facility] Blood 05/27/2021 10:1 7 PM MANAGER ED 05/27/2021 10:17 PM MANAGER ED Lc Simons MD LAB POCT ORDERABLES - DEVICE Final Result Performing Organization Address [facility] Phone Number [facility] [address] [place] [address] * Critical Care (05/27/2021 8:35 PM MANAGER ED) Narrative Austin Hoffman MD - 05/27/2021 8:35 PM MANAGER ED Karolina Muñoz NP ? 05/28/2021 ??5:37 AM Critical Care Performed by: Karolina Muñoz NP Authorized by: Karolina Muñoz NP CRITICAL CARE: ??Team: ??CHNE ??Shift: [...] plan with the ICU team and other medical/aws consultant staff, making frequent assessments and decisions [...] time documenting in the medical record us Karolina Muñoz NP IN CLINIC/BEDSIDE O RDERABLES Final Result * POCT glucose (05/27/2021 5:56 PM MANAGER ED) Glucose, POC 186 70 - 199 mg/dL [facility] Blood 05/27/2021 5:56 PM MANAGER ED 05/27/2021 5:56 PM MANAGER ED Lc Simons MD LAB POCT ORDERABLES - DEVICE Final Result Performing Organization Address City/State/[facility] Phone Number [facility] [address] Department [place] [address] * Critical Care (05/27/2021 2:44 PM MANAGER ED) Narrative Dominique Wilkinson MD - 05/27/2021 2:44 PM MANAGER ED Alejandro Gonzalez NP ? 05/27/2021 ??2:46 PM [...] plan with the ICU team and other medical/aws consultant staff, making frequent assessments and decisions [...] Result * POCT glucose (05/27/2021 12:19 PM MANAGER ED) Glucose, POC 164 70 - 199 mg/dL [facility] Blood 05/27/2021 12:1 9 PM MANAGER ED 05/27/2021 12:19 PM MANAGER ED Lc Simons MD LAB POCT ORDERABLES - DEVICE Final Result [facility] [address] Department [place] [address] * POCT glucose (05/27/2021 8:11 AM MANAGER ED) Glucose, POC 87 70 - 199 mg/dL [facility] Blood 05/27/2021 8:11 AM MANAGER ED 05/27/2021 8:11 AM MANAGER ED Rhina Granados MD LAB POCT ORDERABLES - DEVICE Final Result Performing Organization Address [facility] Co de Phone Number [facility] [address] [facility] [place] [address] * POCT glucose (05/27/2021 6:47 AM MANAGER ED) Glucose, POC 102 70 - 199 mg/dL [facility] Blood 05/27/2021 6:47 AM MANAGER ED 05/27/2021 6:47 AM MANAGER ED Rhina Granados MD LAB POCT ORDERABLES - DEVICE Final Result Performing Organization Address [facility] Phone Number [facility] [address] [facility] [place] [address] * eGFR (05/27/2021 6:40 AM MANAGER ED) eGFR 127 mL/min/1.7 3 m2 [facility] Comment: Interpretive Data Reference Interval [...] last reviewed 2020 Blood 05/27/2021 6:40 AM MANAGER ED 05/27/2021 6:57 AM MANAGER ED Silviano Huddleston [employer] LAB BLOOD ORDERABLES Final Result [facility] [address] Department [place] [address] * (ABNORMAL) Basic metabolic panel (05/27/2021 6:40 AM MANAGER ED) Sodium 130(L) 135 - 145 mmol/L [facility] Potassium, pl 4.6 3.3 - 4.9 mmol/L [facility] Chloride 100 97 - 110 mmol/L [facility] CO2 20(L) 22 - 32 mmol/L [facility] Anion gap 10 2 - 15 mmol/L [facility] BUN 22 8 - 25 mg/dL [facility] Creatinine 0.42(L) 0.80 - 1.30 mg/dL [facility] Glucose 183 70 - 199 mg/dL [facility] Comment: Interpretive Data Fasting glucose [...] 2017. Calcium 8.9 8.5 - 10.3 mg/dL [facility] Blood 05/27/2021 6:40 AM MANAGER ED 05/27/2021 6:57 AM MANAGER ED us Silviano Huddleston NP LAB BLOOD ORDERABLES Final Result [facility] [address] [place] [address] * (ABNORMAL) CBC without differential (05/27/2021 6:40 AM MANAGER ED) WBC 13.5(H) 3.8 - 9.9 K/cumm [facility] Hgb 9.9(L) 13.0 - 17.5 g/dL [facility] Hct 29.8(L) 38.9 - 50.3 % [facility] Plt 519(H) 150 - 400 K/cumm [facility] MPV 11.0 9.1 - 12.3 fL [facility] RBC 3.23(L) 4.30 - 5.80 M/cumm [facility] MCV 92.3 81.3 - 96.4 fL [facility] MCH 30.7 27.1 - 33.3 pg [facility] MCHC 33.2 32.3 - 35.7 g/dL [facility] RDW CV 13.5 11.1 - 14.9 % [facility] RDW SD 45.3 35.7 - 48.1 fL [facility] NRBC abs 0.00 0.00 - 0.01 K/cumm [facility] Blood 05/27/2021 6:40 AM MANAGER ED 05/27/2021 6:56 AM MANAGER ED Silviano Huddleston [employer]LE[employer] LAB BLOOD ORDERABLES Final Result [facility] [address] [place] [address] * Magnesium (05/27/2021 6:40 AM MANAGER ED) Pathologist [facility] Magnesium 1.7 1.4 - 2.5 mg/dL [facility] Blood 05/27/2021 6:40 AM MANAGER ED 05/27/2021 6:57 AM MANAGER ED Silviano Huddleston [employer]LE[employer] LAB BLOOD ORDERABLES Final Result [facility] [address] [place] [address] * Phosphorus (05/27/2021 6:40 AM MANAGER ED) Phosphorus, pl 3.0 2.3 - 4.5 mg/dL [facility] Blood 05/27/2021 6:40 AM MANAGER ED 05/27/2021 6:57 AM MANAGER ED Silviano Huddleston [employer]LE[employer] LAB BLOOD ORDERABLES Final Result [facility] [address] [place] [address] * XR Chest 1 Vw Portable (05/27/2021 5:40 AM MANAGER ED) Anatomical Region Laterality Modality Body, Chest N/A Computed Radiogr aphy 05/27/2021 8:09 AM MANAGER ED Impressions 05/27/2021 8:09 AM MANAGER ED Persistent bilateral infiltrates unchanged, worse on the left than the right. Electronically signed by: Deacon Cummings M.D. Narrative 05/27/2021 8:09 AM MANAGER ED EXAMINATION: XR CHEST 1 VIEW DATE: 05/27/2021 [...] lt * POCT glucose (05/27/2021 12:41 AM MANAGER ED) Glucose, POC 118 70 - 199 mg/dL [facility] Blood 05/27/2021 12:4 1 AM MANAGER ED 05/27/2021 12:41 AM MANAGER ED Rhina Granados MD LAB POCT ORDERABLES - DEVICE Final Result Performing Organization Address [facility] de Phone Number [facility] [address] [facility] [place] [address] * POCT glucose (05/26/2021 10:24 PM MANAGER ED) Glucose, POC 93 70 - 199 mg/dL [facility] Blood 05/26/2021 10:2 4 PM MANAGER ED 05/26/2021 10:24 PM MANAGER ED Rhina Granados MD LAB POCT ORDERABLES - DEVICE Final Result Performing Organization Address [facility] de Phone Number [facility] [address] [facility] [place] [address] * Critical Care (05/26/2021 9:59 PM MANAGER ED) Narrative Frank Dugan MD - 05/26/2021 9:59 PM MANAGER ED Frank Dugan MD ? 05/26/2021 10:02 PM [...] plan with the ICU team and other medical/aws consultant staff, making frequent assessments and decisions [...] Result * POCT glucose (05/26/2021 5:03 PM MANAGER ED) Glucose, POC 159 70 - 199 mg/dL [facility] Blood 05/26/2021 5:03 PM MANAGER ED 05/26/2021 5:03 PM MANAGER ED us Rhina Granados MD LAB POCT ORDERABLES - DEVICE Final Result [facility] [address] [facility] Department [place] [address] * Critical Care (05/26/2021 4:37 PM MANAGER ED) Narrative Dominique Wilkinson MD - 05/26/2021 4:37 PM MANAGER ED Karolina Muñoz NP ? 05/26/2021 ??7:39 PM Critical Care Performed by: Karolina Muñoz NP Authorized by: Karolina Muñoz NP CRITICAL CARE: ??Team: ??CHNE ??Shift: [...] plan with the ICU team and other medical/aws consultant staff, making frequent assessments and decisions [...] time documenting in the medical record us Karolina Muñoz NP IN CLINIC/BEDSIDE O RDERABLES Final Result * (ABNORMAL) Urinalysis, microscopic only (05/26/2021 4:01 PM MANAGER ED) WBC, ur 11-20(A) 0 - 5 /HPF [facility] RBC, ur >50(A) 0 - 2 /HPF [facility] Bacteria, ur Trace(A) [facility] Yeast, ur 4+(A) [facility] Urine 05/26/2021 4:01 PM MANAGER ED 05/26/2021 4:15 PM MANAGER ED Karolina Muñoz NP LAB URINE ORDERABLE S Final Result Performing Organization Address [facility] [place] [address] [address] Department [place] [address] * (ABNORMAL) Urinalysis reflex to microscopic (05/26/2021 4:01 PM MANAGER ED) Color, ur Yellow Yellow [facility] Clarity, [...] performed. [facility] Urine 05/26/2021 4:01 PM MANAGER ED 05/26/2021 4:15 PM MANAGER ED Narrative [facility] - 05/26/2021 4:56 PM MANAGER ED ?? Urine pH is affected by diet, medications, systemic acid-base disturbances, and renal tubular function. ??pH may affect urinary stone formation. ??For example, urine pH below 6.0 may help reduce the tendency for calcium phosphate stones and pH greater than 6.0 may reduce the tendency for uric acid stone formation. Source: [facility] [address]. Last revised 06-30-2017 Karolina Muñoz NP LAB URINE ORDERABLE S Final Result Performing Organization Address [facility] Co de Phone Number [facility]ER [address] Department [place] [address] * Strep pneumoniae antigen, urine Urine (05/26/2021 4:01 PM MANAGER ED) S. pneumoniae Ag Negative Negative [facility] Comment: A negative result is a presumptive [...] of the patient. Urine 05/26/2021 4:01 PM MANAGER ED 05/26/2021 4:15 PM MANAGER ED Karolina Muñoz NP LAB MICROBIOLOGY - GENERAL ORDERABLES Final Result Performing Organization Address [facility] Co de Phone Number [facility] [address] [place] [address] * Legionella antigen Urine (05/26/2021 4:01 PM MANAGER ED) Legionella Ag Negative Negative [facility] Comment: Interpretive Data This test detects only Legionella pneumophila serogroup 1 antigen. ?? Current interpretive data was last revised on 2019. Urine 05/26/2021 4:01 PM MANAGER ED 05/26/2021 4:15 PM MANAGER ED Karolina Muñoz NP LAB MICROBIOLOGY - GENERAL ORDERABLES Final Result [facility] [address] [place], [place] [id number] * Blood culture Blood Antecubital, right (05/26/2021 1:43 PM MANAGER ED) Report Final Report: No growth [facility] Comment:Testing performed by : [facility], [address] [facility], [place]., [address] Blood (Antecubital, right) 05/26/2021 1:43 PM MANAGER ED 05/26/2021 6:23 PM MANAGER ED Narrative [facility] - 05/31/2021 7:00 AM MANAGER ED From a different site than #1. 1. [...] organism identification may be performed using the TapHomeigene Gram-Positive Blood Culture Assay. This assay detects microbial DNA in positive blood culture broth via hybridization of target DNA to capture oligonucleotides on a microarray. This assay has been cleared by the [place] Food and Drug Administration and its performance characteristics have been verified by the [facility] Microbiology Laboratory. 5. ?For questions about this culture, contact the Microbiology Laboratory at [phone]. Interpretive data was last revised on 2019. Karolina Muñoz NP LAB MICROBIOLOGY - GENERAL ORDERABLES Final Result [facility] [address] Department [place] [address] * Blood culture Blood Antecubital, left (05/26/2021 1:43 PM MANAGER ED) Report Final Report: No growth [facility] Comment:Testing performed by : [facility], [address] [place]., [address] Blood (Antecubital, left) 05/26/2021 1:43 PM MANAGER ED 05/26/2021 6:23 PM MANAGER ED Narrative [facility] - 05/31/2021 7:00 AM MANAGER ED 1. ?Blood cultures are incubated for 4 [...] organism identification may be performed using the [employer] Gram-Positive Blood Culture Assay. This assay detects microbial DNA in positive blood culture broth via hybridization of target DNA to capture oligonucleotides on a microarray. This assay has been cleared by the [place] Food and Drug Administration and its performance characteristics have been verified by the [facility] Microbiology Laboratory. 5. ?For questions about this culture, contact the Microbiology Laboratory at [phone]. Interpretive data was last revised on 2019. Karolina Muñoz NP LAB MICROBIOLOGY - GENERAL ORDERABLES Final Result [facility] [address] Department [place] [address] * MRSA Only (Staphylococcs aureus) PCR Nasal (05/26/2021 1:31 PM MANAGER ED) [facility] PCR Scrn, Methicillin resistant Staphylococcus aureus (MRSA) Not Detected Not Detected [facility] Comment: Testing performed using Nucleic Acid Amplification with the [employer] Xpert MRSA Assay. This assay detects DNA from SCCmec strains of Staphylococcus aureus using Real- Time PCR and has been cleared by the FDA. Performance characteristics have been verified by the [facility] Laboratory. Nasal 05/26/2021 1:31 PM MANAGER ED 05/26/2021 1:42 PM MANAGER ED Karolina Muñoz NP LAB MICROBIOLOGY - GENERAL ORDERABLES Final Result [facility] [address] Department [place] [address] * (ABNORMAL) POCT glucose (05/26/2021 1:19 PM MANAGER ED) Pathologist [facility] Glucose, POC 237(H) 70 - 199 mg/dL [facility] Blood 05/26/2021 1:19 PM MANAGER ED 05/26/2021 1:19 PM MANAGER ED Rhina Granados MD LAB POCT ORDERABLES - DEVICE Final Result Performing Organization Address City/[facility] Co de Phone Number [facility] [address] Department [place] [address] * (ABNORMAL) Pneumonia PCR Sputum Lung (05/26/2021 11:32 AM MANAGER ED) [facility] C. pneumoniae DNA Not Detected Not Detected [facility] Comment:Testing performed by : [facility], [address] [place] [address], [place]., [address] Legionella pneumophila DNA Not Detected Not Detected [facility] Comment:Testing performed by : [facility], [address] [place]., [address] M. pneumoniae DNA Not Detected Not Detected [facility] Comment:Testing performed by : [facility], [address] [place]., [address] Adenovirus DNA Not Detected Not Detected [facility] Comment:Testing performed by : [facility], [address] [place]., [address] Coronavirus (229E, OC43, HKU1, NL63) RNA Not Detected Not Detected [facility] Comment:Testing performed by : [facility], [address] [place]., [address] Metapneumovirus RNA Not Detected Not Detected [facility] Comment:Testing performed by : [facility], [address] [place]., [address] Rhinovirus/Enterov irus RNA Detected(A) Not Detected [facility] Comment:Testing performed by : [facility], [address] [place]., [address] Influenza A RNA Not Detected Not Detected [facility] Comment:Testing performed by : [facility], [address] [facility], [address] Influenza B RNA Not Detected Not Detected [facility] Comment:Testing performed by : [facility], [address] [place]., [address] Parainfluenza virus (1-4) RNA Not Detected Not Detected [facility] Comment:Testing performed by : [facility], [address] [facility], [address] RSV RNA Not Detected Not Detected [facility] Comment:Testing performed by : [facility], [address] [facility], [address] Sputum (Lung) 05/26/2021 11: 32 AM MANAGER ED 05/26/2021 4:04 PM MANAGER ED Narrative [facility] - 05/26/2021 5:33 PM MANAGER ED The BioFire Pneumonia Panel is a multiplexed [...] of this assay have been determined by [facility]. Current interpretive data was last revised on 2021. Karolina Muñoz NP LAB MICROBIOLOGY - GENERAL ORDERABLES Final Result [facility] [address] Department of Laboratories [place], [place] [id number] * (ABNORMAL) Pneumonia PCR with aerobic culture and Gram stain Sputum Lung (05/26/2021 11:32 AM MANAGER ED) Direct Specimen Exam Molecular Analysis: Greater than or equal to 10^7 copies/mL Moraxella catarrhalis 10^5 copies/mL Haemophilus influenzae 10^4 copies/mL Staphylococcus aureus Methicillin resistant Staphylococcus aureus (MRSA) detected by molecular analysis. Correlation of molecular analysis with final culture results is recommended. [facility] Comment:Testing performed by : [facility], [address] [place] [address]., [id number] Direct Specimen Exam Stain: Few polymorphonuclear leukocytes seen. Few squamous epithelial cells seen. Abundant mixed bacterial tirso seen on Gram stain. [facility] Comment:Testing performed by : [facility], [address] [place]., [address] Report Final Report: Growth indicates upper respiratory tirso. (.) [facility] Comment:Testing performed by : [facility], [address] [place] [address]., [address] Organism GROWTH INDICATES UPPER RESPIRATORY TIRSO. [facility] Sputum (Lung) 05/26/2021 11: 32 AM MANAGER ED 05/26/2021 3:21 PM MANAGER ED Narrative [facility] - 05/29/2021 1:52 PM MANAGER ED When rapid molecular testing results are reported, testing completed using the [employer] FilmArray Pneumonia Panel. ??This molecular assay detects: Acinetobacter [...] performance characteristics have been confirmed by the [facility] Laboratory. ??The performance of the FilmArray Pneumonia Panel has not been established for monitoring treatment of infection and bacterial nucleic acids may persist independent of organism viability. Karolina Muñoz NP LAB MICROBIOLOGY - GENERAL ORDERABLES Final Result [facility] [address] Department [place] [address] * POCT glucose (05/26/2021 8:42 AM MANAGER ED) [facility] Signature Glucose, POC 95 70 - 199 mg/dL [facility] Blood 05/26/2021 8:42 AM MANAGER ED 05/26/2021 8:42 AM MANAGER ED Rhina Granados MD LAB POCT ORDERABLES - DEVICE Final Result Performing Organization Address [facility] Co de Phone Number [facility] [address] [facility] [place] [address] * POCT glucose (05/26/2021 6:32 AM MANAGER ED) Glucose, POC 74 70 - 199 mg/dL [facility] Blood 05/26/2021 6:32 AM MANAGER ED 05/26/2021 6:32 AM MANAGER ED Rhina Granados MD LAB POCT ORDERABLES - DEVICE Final Result Performing Organization Address [facility] de Phone Number [facility] DON [address] [place] [address] * eGFR (05/26/2021 6:23 AM MANAGER ED) eGFR 121 mL/min/1.7 3 m2 [facility] Comment: Interpretive Data Reference Interval [...] last reviewed 2020 Blood 05/26/2021 6:23 AM MANAGER ED 05/26/2021 7:00 AM MANAGER ED Silviano Huddleston NP LAB BLOOD ORDERABLES Final Result Performing Organization Address [facility] Co de Phone Number HENRIK [address] [address] [facility] [place] [address] * (ABNORMAL) CRP (acute phase) (05/26/2021 6:23 AM MANAGER ED) CRP 16.0(H) <=10.0 mg/L [facility] Blood 05/26/2021 6:23 AM MANAGER ED 05/26/2021 6:48 AM MANAGER ED Frank Dugan MD LAB BLOOD ORDERABLES Final R esult Performing Organization Address [facility] de Phone Number HENRIK DON [address] [place] [address] * (ABNORMAL) D-dimer, quantitative (05/26/2021 6:23 AM MANAGER ED) D-Dimer 3,194(H) <=499 ng/mL [facility] Comment: Interpretive data FDA approved the D-dimer, [...] revised on 2019. Blood 05/26/2021 6:23 AM MANAGER ED 05/26/2021 6:49 AM MANAGER ED us Frank Dugan MD LAB BLOOD ORDERABLES Final R esult [facility]K DON [address] Department [place] [address] * (ABNORMAL) Basic metabolic panel (05/26/2021 6:23 AM MANAGER ED) Sodium 136 135 - 145 mmol/L [facility] Potassium, pl 4.4 3.3 - 4.9 mmol/L [facility] Chloride 101 97 - 110 mmol/L [facility] CO2 22 22 - 32 mmol/L [facility] Anion gap 13 2 - 15 mmol/L [facility] BUN 22 8 - 25 mg/dL [facility] Creatinine 0.48(L) 0.80 - 1.30 mg/dL [facility] Glucose 77 70 - 199 mg/dL [facility] Comment: [...] 2017. Calcium 9.1 8.5 - 10.3 mg/dL [facility] Blood 05/26/2021 6:23 AM MANAGER ED 05/26/2021 6:48 AM MANAGER ED Silviano Huddleston [employer] LAB BLOOD ORDERABLES Final Result [facility]K DON [address] Department [place] [address] * (ABNORMAL) CBC without differential (05/26/2021 6:23 AM MANAGER ED) WBC 14.0(H) 3.8 - 9.9 K/cumm [facility] Hgb 10.7(L) 13.0 - 17.5 g/dL [facility] Hct 32.6(L) 38.9 - 50.3 % [facility] Plt 535(H) 150 - 400 K/cumm [facility] MPV 11.6 9.1 - 12.3 fL [facility] RBC 3.56(L) 4.30 - 5.80 M/cumm [facility] MCV 91.6 81.3 - 96.[address] [facility] CH MCH 30.1 27.1 - 33.3 pg [facility] MCHC 32.8 32.3 - 35.7 g/dL [facility] RDW CV 13.5 11.1 - 14.9 % [facility] CH RDW SD 44.8 35.7 - 48.[address] [facility] CH NRBC abs 0.00 0.00 - 0.01 K/cumm [facility] Blood 05/26/2021 6:23 AM MANAGER ED 05/26/2021 6:49 AM MANAGER ED Silviano Huddleston [employer] LAB BLOOD ORDERABLES Final Result Performing Organization Address [facility] Co de Phone Number [facility] [address] [address] [facility] [place] [address] * Magnesium (05/26/2021 6:23 AM MANAGER ED) Pathologist [facility] Magnesium 2.1 1.4 - 2.5 mg/dL [facility] Blood 05/26/2021 6:23 AM MANAGER ED 05/26/2021 6:48 AM MANAGER ED Silviano Saldivar [facility] [employer] LAB BLOOD ORDERABLES Final Result Performing Organization Address [facility] Co de Phone Number [facility] [address] [address] [facility] [place] [address] * Phosphorus (05/26/2021 6:23 AM MANAGER ED) Phosphorus, pl 3.7 2.3 - 4.5 mg/dL [facility] Blood 05/26/2021 6:23 AM MANAGER ED 05/26/2021 6:48 AM MANAGER ED us Silviano Huddleston [employer] LAB BLOOD ORDERABLES Final Result H[facility]K DON [address] [address] [place] [address] * XR Chest 1 Vw Portable (05/26/2021 6:07 AM MANAGER ED) Anatomical Region Laterality Modality Body, Chest N/A Computed Radiogr aphy 05/26/2021 7:27 AM MANAGER ED Impressions 05/26/2021 7:27 AM MANAGER ED Decreasing infiltrate left lung. Electronically signed by: Deacon Cummings M.D. Narrative 05/26/2021 7:27 AM MANAGER ED EXAMINATION: XR CHEST 1 VIEW DATE: 05/26/2021 [...] lt * POCT glucose (05/25/2021 11:59 PM MANAGER ED) Glucose, POC 101 70 - 199 mg/dL [facility] DON Blood 05/25/2021 11:5 9 PM MANAGER ED 05/25/2021 11:59 PM MANAGER ED Rhina Granados MD LAB POCT ORDERABLES - DEVICE Final Result Performing Organization Address City/[facility]/ZIP Co de Phone Number HENRIK DON [address] Department [place] [address] * Critical Care (05/25/2021 9:14 PM MANAGER ED) Narrative Frank Dugan MD - 05/25/2021 9:14 PM MANAGER ED Frank Dugan MD ? 05/26/2021 ??1:21 AM [...] plan with the ICU team and other medical/aws consultant staff, making frequent assessments and decisions [...] Final * POCT glucose (05/25/2021 8:15 PM MANAGER ED) Glucose, POC 192 70 - 199 mg/dL [facility] Blood 05/25/2021 8:15 PM MANAGER ED 05/25/2021 8:15 PM MANAGER ED Rhina Granados MD LAB POCT ORDERABLES - DEVICE Final Result Performing Organization Address [facility] de Phone Number HENRIK [address] [facility] [place] [address] * POCT glucose (05/25/2021 5:39 PM MANAGER ED) Glucose, POC 134 70 - 199 mg/dL [facility] Blood 05/25/2021 5:39 PM MANAGER ED 05/25/2021 5:39 PM MANAGER ED Rhina Granados MD LAB POCT ORDERABLES - DEVICE Final Result Performing Organization Address [facility] de Phone Number HENRIK [address] [address] [facility] [place] [address] * Critical Care (05/25/2021 4:03 PM MANAGER ED) Narrative Dominique Wilkinson MD - 05/25/2021 4:03 PM MANAGER ED Karolina Muñoz NP ? 05/25/2021 ??8:02 PM Critical Care Performed by: Karolina Muñoz NP Authorized by: Karolina Muñoz NP CRITICAL CARE: ??Team: ??CHNE ??Shift: [...] plan with the ICU team and other medical/aws consultant staff, making frequent assessments and decisions [...] time documenting in the medical record us Karolina Muñoz NP IN CLINIC/BEDSIDE O RDERABLES Final Result * POCT glucose (05/25/2021 12:23 PM MANAGER ED) Glucose, POC 158 70 - 199 mg/dL [facility] DON Blood 05/25/2021 12:2 3 PM MANAGER ED 05/25/2021 12:23 PM MANAGER ED Rhina Granados MD LAB POCT ORDERABLES - DEVICE Final Result [facility] DON [address] Department of Laboratories [place], [place] [id number] * CT Chest PE (CTA) W Contrast (05/25/2021 10:22 AM MANAGER ED) Anatomical Region Laterality Modality Body N/A Computed Tomogra phy 05/25/2021 10:4 2 AM MANAGER ED Impressions 05/25/2021 10:42 AM MANAGER ED 1. ??No pulmonary embolus. 2. ??Similar diffuse groundglass opacities and consolidation suggestive of multifocal Covid 19 pneumonia 3. ??Severe centrilobular emphysematous changes. 4. ??Prior coronary artery bypass graft. 5. ??Additional chronic or incidental findings as above. Electronically signed by: Richard Lopez II, D.O. Narrative 05/25/2021 10:42 AM MANAGER ED Indication: Suspected pulmonary embolus. Comparison: CT of [...] Electronically signed by: Richard Lopez II, D.O. Karolina Muñoz [employer] IMG CT PROCEDURES F inal Result * (ABNORMAL) Blood gas, arterial (05/25/2021 9:51 AM MANAGER ED) pH, Art 7.47(H) 7.35 - 7.45 [facility] [...] % [facility] Blood 05/25/2021 9:51 AM MANAGER ED 05/25/2021 9:56 AM MANAGER ED Karolina Muñoz NP LAB BLOOD ORDERABLE S Final Result Performing Organization Address [facility] Co de Phone Number HENRIK [place]OR[place] [employer] [place], [place] [id number] * POCT glucose (05/25/2021 9:20 AM MANAGER ED) Glucose, POC 97 70 - 199 mg/dL [facility] Blood 05/25/2021 9:20 AM MANAGER ED 05/25/2021 9:20 AM MANAGER ED Rhina Granados MD LAB POCT ORDERABLES - DEVICE Final Result Performing Organization Address City/[facility] Co de Phone Number HENRIK DON [address] Department [place] [address] * XR Chest 1 Vw Portable (05/25/2021 6:25 AM MANAGER ED) Anatomical Region Laterality Modality Body, Chest N/A Computed Radiogr aphy 05/25/2021 7:59 AM MANAGER ED Impressions 05/25/2021 7:59 AM MANAGER ED Worsening pneumonic changes in the left lung. Electronically signed by: Deacon Cummings M.D. Narrative 05/25/2021 7:59 AM MANAGER ED EXAMINATION: XR CHEST 1 VIEW DATE: 05/25/2021 [...] Resu lt * eGFR (05/25/2021 3:00 AM MANAGER ED) [facility] eGFR 112 mL/min/1.7 3 m2 [facility] Comment: Interpretive Data Reference Interval [...] last reviewed 2020 Blood 05/25/2021 3:00 AM MANAGER ED 05/25/2021 3:26 AM MANAGER ED us Silviano Huddleston [employer] LAB BLOOD ORDERABLES Final Result [facility] [address] [address] Department [place] [address] * (ABNORMAL) Basic metabolic panel (05/25/2021 3:00 AM MANAGER ED) Sodium 132(L) 135 - 145 mmol/L [facility] Potassium, pl 4.2 3.3 - 4.9 mmol/L [facility] Chloride 96(L) 97 - 110 mmol/L [facility] CO2 23 22 - 32 mmol/L [facility] Anion gap 13 2 - 15 mmol/L [facility] BUN 24 8 - 25 mg/dL [facility] Creatinine 0.58(L) 0.80 - 1.30 mg/dL [facility] Glucose 222(H) 70 - 199 mg/dL [facility] Comment: Interpretive Data Fasting glucose >/= [...] 2017. Calcium 9.0 8.5 - 10.3 mg/dL [facility] Blood 05/25/2021 3:00 AM MANAGER ED 05/25/2021 3:26 AM MANAGER ED Silviano Huddleston [employer] LAB BLOOD ORDERABLES Final Result Performing Organization Address City/[facility]/ZIP Co de Phone Number HENRIK DON [address] [place] [address] * (ABNORMAL) CBC without differential (05/25/2021 3:00 AM MANAGER ED) WBC 11.2(H) 3.8 - 9.9 K/cumm [facility] Hgb 10.0(L) 13.0 - 17.5 g/dL [facility] Hct 31.6(L) 38.9 - 50.3 % [facility] Plt 459(H) 150 - 400 K/cumm [facility] MPV 11.7 9.1 - 12.3 fL [facility] RBC 3.46(L) 4.30 - 5.80 M/cumm [facility] MCV 91.3 81.3 - 96.4 fL [facility] MCH 28.9 27.1 - 33.3 pg [facility] MCHC 31.6(L) 32.3 - 35.7 g/dL [facility] RDW CV 13.2 11.1 - 14.9 % [facility] RDW SD 44.2 35.7 - 48.1 fL [facility] NRBC abs 0.00 0.00 - 0.01 K/cumm [facility] Blood 05/25/2021 3:00 AM MANAGER ED 05/25/2021 3:25 AM MANAGER ED Silviano Huddleston [employer] LAB BLOOD ORDERABLES Final Result Performing Organization Address City/[facility]/ZIP Co de Phone Number HENRIK DON [address] [facility] [place] [address] * Magnesium (05/25/2021 3:00 AM MANAGER ED) Magnesium 1.7 1.4 - 2.5 mg/dL [facility] Blood 05/25/2021 3:00 AM MANAGER ED 05/25/2021 3:26 AM MANAGER ED Silviano Yariel Huddleston [employer] LAB BLOOD ORDERABLES Final Result Performing Organization Address [facility] Co de Phone Number HENRIK DON [address] [address] [facility] [place] [address] * Phosphorus (05/25/2021 3:00 AM MANAGER ED) Phosphorus, pl 3.0 2.3 - 4.5 mg/dL [facility] Blood 05/25/2021 3:00 AM MANAGER ED 05/25/2021 3:26 AM MANAGER ED Silviano Huddleston [employer] LAB BLOOD ORDERABLES Final Result Performing Organization Address [facility] de Phone Number HENRIK DON [address] [place] [address] * Critical Care (05/24/2021 11:38 PM MANAGER ED) Narrative Frank Dugan MD - 05/24/2021 11:38 PM MANAGER ED Frank Dugan MD ? 05/24/2021 11:44 PM [...] plan with the ICU team and other medical/aws consultant staff, making frequent assessments and decisions [...] Result * POCT glucose (05/24/2021 11:31 PM MANAGER ED) Glucose, POC 135 70 - 199 mg/dL [facility] Blood 05/24/2021 11:3 1 PM MANAGER ED 05/24/2021 11:31 PM MANAGER ED Rhina Granados MD LAB POCT ORDERABLES - DEVICE Final Result Performing Organization Address [facility] de Phone Number [facility] [address] [place] [address] * POCT glucose (05/24/2021 7:52 PM MANAGER ED) Glucose, POC 179 70 - 199 mg/dL [facility] Blood 05/24/2021 7:52 PM MANAGER ED 05/24/2021 7:52 PM MANAGER ED Rhina Granados MD LAB POCT ORDERABLES - DEVICE Final Result Performing Organization Address [facility] Co de Phone Number [facility] [address] [address] [facility] [place] [address] * POCT glucose (05/24/2021 5:04 PM MANAGER ED) Glucose, POC 164 70 - 199 mg/dL [facility] Blood 05/24/2021 5:04 PM MANAGER ED 05/24/2021 5:04 PM MANAGER ED Rhina Granados MD LAB POCT ORDERABLES - DEVICE Final Result HENRIK [address] [facility] [place] [address] * Critical Care (05/24/2021 1:50 PM MANAGER ED) Narrative Dominique Wilkinson MD - 05/24/2021 1:50 PM MANAGER ED Silviano Huddleston NP ? 05/24/2021 ??5:31 PM [...] plan with the ICU team and other medical/aws consultant staff, making frequent assessments and decisions [...] spent time documenting in the medical record Silviano Huddleston [employer] IN CLINIC/BEDSIDE ORDERABL ES Final Result * POCT glucose (05/24/2021 12:18 PM MANAGER ED) Glucose, POC 157 70 - 199 mg/dL [facility] Blood 05/24/2021 12:1 8 PM MANAGER ED 05/24/2021 12:18 PM MANAGER ED Rhina Granados MD LAB POCT ORDERABLES - DEVICE Final Result Performing Organization Address City/[facility]/ZIP Co de Phone Number HENRIK DON [address] [place] [address] * POCT glucose (05/24/2021 8:51 AM MANAGER ED) Glucose, POC 109 70 - 199 mg/dL [facility] Blood 05/24/2021 8:51 AM MANAGER ED 05/24/2021 8:51 AM MANAGER ED Rhina Granados MD LAB POCT ORDERABLES - DEVICE Final Result Performing Organization Address City/[facility] Co de Phone Number HENRIK DON [address] [address] [place] [address] * XR Chest 1 Vw Portable (05/24/2021 6:58 AM MANAGER ED) Anatomical Region Laterality Modality Body, Chest N/A Computed Radiogr aphy 05/24/2021 9:37 AM MANAGER ED Impressions 05/24/2021 9:37 AM MANAGER ED Persistent bilateral ill-defined alveolar infiltrate unchanged. Electronically signed by: Joie Bernardo M.D. Narrative 05/24/2021 9:37 AM MANAGER ED Examination: XR CHEST 1 VIEW Date: 05/24/2021 [...] lt * POCT glucose (05/24/2021 6:46 AM MANAGER ED) Glucose, POC 119 70 - 199 mg/dL [facility] Blood 05/24/2021 6:46 AM MANAGER ED 05/24/2021 6:46 AM MANAGER ED Rhina Granados MD LAB POCT ORDERABLES - DEVICE Final Result [facility] [address] [facility] Department [place] [address] * eGFR (05/24/2021 3:48 AM MANAGER ED) eGFR 110 mL/min/1.7 3 m2 [facility] Comment: Interpretive Data Reference Interval [...] last reviewed 2020 Blood 05/24/2021 3:48 AM MANAGER ED 05/24/2021 4:17 AM MANAGER ED us Silviano Huddleston [employer] LAB BLOOD ORDERABLES Final Result [facility] [address] Department [place] [address] * (ABNORMAL) Basic metabolic panel (05/24/2021 3:48 AM MANAGER ED) Sodium 133(L) 135 - 145 mmol/L [facility] Potassium, pl 4.3 3.3 - 4.9 mmol/L [facility] Chloride 96(L) 97 - 110 mmol/L [facility] CO2 24 22 - 32 mmol/L [facility] Anion gap 13 2 - 15 mmol/L [facility] BUN 23 8 - 25 mg/dL [facility] Creatinine 0.60(L) 0.80 - 1.30 mg/dL [facility] Glucose 142 70 - 199 mg/dL [facility] Comment: Interpretive Data Fasting glucose [...] 8.8 8.5 - 10.3 mg/dL [facility] Blood 05/24/2021 3:48 AM MANAGER ED 05/24/2021 4:17 AM MANAGER ED Silviano Huddleston [employer] LAB BLOOD ORDERABLES Final Result Performing Organization Address [facility] Co de Phone Number HENRIK DON [address] [place] [address] * (ABNORMAL) CBC without differential (05/24/2021 3:48 AM MANAGER ED) WBC 10.7(H) 3.8 - 9.9 K/cumm [facility] Hgb 9.6(L) 13.0 - 17.5 g/dL [facility] Hct 29.5(L) 38.9 - 50.3 % [facility] Plt 457(H) 150 - 400 K/cumm [facility] MPV 11.6 9.1 - 12.3 fL [facility] RBC 3.24(L) 4.30 - 5.80 M/cumm [facility] MCV 91.0 81.3 - 96.4 fL [facility] MCH 29.6 27.1 - 33.3 pg [facility] MCHC 32.5 32.3 - 35.7 g/dL [facility] RDW CV 13.2 11.1 - 14.9 % [facility] RDW SD 43.6 35.7 - 48.1 fL [facility] NRBC abs 0.00 0.00 - 0.01 K/cumm [facility] Blood 05/24/2021 3:48 AM MANAGER ED 05/24/2021 4:17 AM MANAGER ED Silviano Huddleston [employer] LAB BLOOD ORDERABLES Final Result Performing Organization Address City/[facility]/ZIP Co de Phone Number HENRIK DON [address] [address] [facility] [place] [address] * Magnesium (05/24/2021 3:48 AM MANAGER ED) Magnesium 2.1 1.4 - 2.5 mg/dL [facility] Blood 05/24/2021 3:48 AM MANAGER ED 05/24/2021 4:17 AM MANAGER ED Silviano Huddleston [employer] LAB BLOOD ORDERABLES Final Result Performing Organization Address [facility] Co de Phone Number HENRIK DON [address] [address] [facility] [place] [address] * Phosphorus (05/24/2021 3:48 AM MANAGER ED) Phosphorus, pl 3.3 2.3 - 4.5 mg/dL [facility] Blood 05/24/2021 3:48 AM MANAGER ED 05/24/2021 4:17 AM MANAGER ED Silviano Huddleston [employer] LAB BLOOD ORDERABLES Final Result Performing Organization Address [facility] Co de Phone Number HENRIK DON [address] [address] [facility] [place] [address] * Vitamin B12 (05/24/2021 3:48 AM MANAGER ED) Vitamin B12 879 230 - 1,250 pg/mL [facility] Blood 05/24/2021 3:48 AM MANAGER ED 05/24/2021 4:17 AM MANAGER ED Stephen Melgar MD LAB BLOOD ORDERABLES Final Resu lt Performing Organization Address [facility] de Phone Number [facility]K DON [address] [address] [facility] [place] [address] * (ABNORMAL) Iron profile w/ IBC (05/24/2021 3:48 AM MANAGER ED) Iron 26(L) 50 - 150 mcg/dl [facility] TIBC 174(L) 250 - 400 mcg/dL [facility] Transferrin saturation 15(L) 20 - 50 % [facility] Blood 05/24/2021 3:48 AM MANAGER ED 05/24/2021 4:17 AM MANAGER ED us Stephen Melgar MD LAB BLOOD ORDERABLES Final Resu lt Performing Organization Address [facility] de Phone Number [facility] [address] [place] [address] * Hepatitis panel, acute (05/24/2021 3:48 AM MANAGER ED) Hep A IgM Nonreactive Nonreactive [facility] Comment: Interpretive Data: If Hep A IgM Ab is reported as Equivocal, a new sample should be drawn in two weeks for testing. Current interpretive data was last revised on 19. Hep B core IgM Nonreactive Nonreactive [facility] Comment: Interpretive Data If HepB Core IgM Ab is reported as Equivocal, a new sample should be drawn in two weeks for testing. Current interpretive data was last revised on 19. Hep C Ab Nonreactive Nonreactive [facility] Comment: Interpretive Data Nonreactive: Antibodies to HCV [...] last revised on 2019. HepBsAg Nonreactive Nonreactive [facility] Blood 05/24/2021 3:48 AM MANAGER ED 05/24/2021 4:16 AM MANAGER ED Stephen Melgar MD LAB MICROBIOLOGY - GENERAL ORDE VINCENT Final Result Performing Organization Address [facility] de Phone Number HENRIK [address] [place] [address] * Folate (05/24/2021 3:48 AM MANAGER ED) Folic acid 10.2 >=5.0 ng/mL [facility] Comment:Hemolysis present. R esults may be affected. Blood 05/24/2021 3:48 AM MANAGER ED 05/24/2021 4:17 AM MANAGER ED us Stephen Melgar MD LAB BLOOD ORDERABLES Final Resu lt Performing Organization Address [facility] de Phone Number [facility]K DON [address] [address] [facility] [place] [address] * (ABNORMAL) Ferritin (05/24/2021 3:48 AM MANAGER ED) Ferritin 1,861(H) 30 - 400 ng/mL [facility] Blood 05/24/2021 3:48 AM MANAGER ED 05/24/2021 4:17 AM MANAGER ED Stephen Melgar MD LAB BLOOD ORDERABLES Final Resu lt Performing Organization Address [facility] de Phone Number HENRIK [address] [address] [place] [address] * (ABNORMAL) Lipid panel (05/24/2021 3:48 AM MANAGER ED) Cholesterol 131 30 - 199 mg/dL [facility] Comment: Interpretive [...] revised on 2018. Non-HDL Cholesterol 100 mg/dL [facility] Comment: Interpretive Data Ages < [...] last revised on 2018. Chol/HDL ratio 4 [facility] Blood 05/24/2021 3:48 AM MANAGER ED 05/24/2021 4:17 AM MANAGER ED us Stephen Melgar MD LAB BLOOD ORDERABLES Final Resu lt Performing Organization Address [facility] Co de Phone Number [facility] [address] [place] [address] * (ABNORMAL) Vitamin D 25 hydroxy (05/24/2021 3:48 AM MANAGER ED) Pathologist [facility] Vitamin D 25-OH 10(L) 30 - 80 ng/mL [facility] Blood 05/24/2021 3:48 AM MANAGER ED 05/24/2021 4:16 AM MANAGER ED us Stephen Melgar MD LAB BLOOD ORDERABLES Final Resu lt Performing Organization Address [facility] Co de Phone Number [facility] [address] [place] [address] * Albumin Creatinine Ratio, Urine (05/24/2021 3:48 AM MANAGER ED) Albumin Ur <12.0 mg/L [facility] Comment: Interpretive Data No reference range established. Current interpretive data was last revised 2018. Creatinine Ur 55.2 mg/dL [facility] Comment: Interpretive Data No reference range established. Current interpretive data was last revised 2018. Albumin Creatinine Ratio, Ur <22 1 - 29 mg/g [facility] Urine 05/24/2021 3:48 AM MANAGER ED 05/24/2021 4:21 AM MANAGER ED Stephen Melgar MD LAB URINE ORDERABLES Final Resu lt Performing Organization Address [facility] Co de Phone Number [facility] [address] [facility] [place] [address] * POCT glucose (05/23/2021 11:21 PM MANAGER ED) Glucose, POC 179 70 - 199 mg/dL [facility] Blood 05/23/2021 11:2 1 PM MANAGER ED 05/23/2021 11:21 PM MANAGER ED Rhina Granados MD LAB POCT ORDERABLES - DEVICE Final Result Performing Organization Address [facility] Co de Phone Number [facility] [address] [place] [address] * POCT glucose (05/23/2021 9:11 PM MANAGER ED) Glucose, POC 162 70 - 199 mg/dL [facility] Blood 05/23/2021 9:11 PM MANAGER ED 05/23/2021 9:11 PM MANAGER ED Rhina Granados MD LAB POCT ORDERABLES - DEVICE Final Result Performing Organization Address [facility] [facility] Co de Phone Number [facility] [address] [place] [address] * Critical Care (05/23/2021 8:57 PM MANAGER ED) Narrative Frank Dugan MD - 05/23/2021 8:57 PM MANAGER ED Frank Dugan MD ? 05/24/2021 ??2:00 AM [...] plan with the ICU team and other medical/aws consultant staff, making frequent assessments and decisions [...] * (ABNORMAL) POCT glucose (05/23/2021 6:14 PM MANAGER ED) [facility] Glucose, POC 226(H) 70 - 199 mg/dL [facility] Blood 05/23/2021 6:14 PM MANAGER ED 05/23/2021 6:14 PM MANAGER ED us Rhina Granados MD LAB POCT ORDERAB[place] - [place] [address] [address] Department of Laboratories [place] [phone] * Critical Care (05/23/2021 3:32 PM MANAGER ED) Narrative Dominique Wilkinson MD - 05/23/2021 3:32 PM MANAGER ED Silviano Huddleston NP ? 05/24/2021 ??8:40 AM [...] plan with the ICU team and other medical/aws consultant staff, making frequent assessments and decisions [...] * (ABNORMAL) POCT glucose (05/23/2021 2:43 PM MANAGER ED) Glucose, POC 276(H) 70 - 199 mg/dL [facility] Blood 05/23/2021 2:43 PM MANAGER ED 05/23/2021 2:43 PM MANAGER ED Rhina Granados MD LAB POCT ORDERABLES - DEVICE Final Result Performing Organization Address [facility] Co de Phone Number [place] [address] [facility] [place] [address] * (ABNORMAL) POCT glucose (05/23/2021 1:12 PM MANAGER ED) Glucose, POC 239(H) 70 - 199 mg/dL [facility] Blood 05/23/2021 1:12 PM MANAGER ED 05/23/2021 1:12 PM MANAGER ED Rhina Granados MD LAB POCT ORDERABLES - DEVICE Final Result Performing Organization Address [facility] Co de Phone [place] [address] [address] [facility] [address] [place], [place] [id number] * POCT glucose (05/23/2021 11:56 AM MANAGER ED) Glucose, POC 129 70 - 199 mg/dL [facility] Blood 05/23/2021 11:5 6 AM MANAGER ED 05/23/2021 11:56 AM MANAGER ED Rhina Granados MD LAB POCT ORDERABLES - DEVICE Final Result Performing Organization Address [facility] Co de Phone Number [place] [address] [facility] [address] [place], [place] [id number] * POCT glucose (05/23/2021 10:37 AM MANAGER ED) Glucose, POC 109 70 - 199 mg/dL [facility] Blood 05/23/2021 10:3 7 AM MANAGER ED 05/23/2021 10:37 AM MANAGER ED us Rhina Granados MD LAB POCT ORDERABLES - DEVICE Final Result Performing Organization Address City/[facility] Co de Phone Number [place] [address] [address] [facility] [place] [address] * POCT glucose (05/23/2021 9:26 AM MANAGER ED) Glucose, POC 114 70 - 199 mg/dL [facility] Blood 05/23/2021 9:26 AM MANAGER ED 05/23/2021 9:26 AM MANAGER ED us Rhina Granados MD LAB POCT ORDERABLES - DEVICE Final Result Performing Organization Address [facility] Co de Phone Number [place] [address] [address] [facility] [place] [address] * POCT glucose (05/23/2021 7:12 AM MANAGER ED) Glucose, POC 144 70 - 199 mg/dL [facility] Blood 05/23/2021 7:12 AM MANAGER ED 05/23/2021 7:12 AM MANAGER ED us Rhina Granados MD LAB POCT ORDERABLES - DEVICE Final Result Performing Organization Address [facility] Co de Phone Number [place] [address] [address] [facility] [place] [address] * POCT glucose (05/23/2021 6:09 AM MANAGER ED) Glucose, POC 144 70 - 199 mg/dL [facility] Blood 05/23/2021 6:09 AM MANAGER ED 05/23/2021 6:09 AM MANAGER ED us Rhina Granados MD LAB POCT ORDERABLES - DEVICE Final Result Performing Organization Address City/[facility] Co de Phone Number [place] [address] [place] [address] * XR Chest 1 Vw Portable (05/23/2021 5:19 AM MANAGER ED) Anatomical Region Laterality Modality Body, Chest N/A Computed Radiogr aphy 05/23/2021 8:19 AM MANAGER ED Impressions 05/23/2021 8:19 AM MANAGER ED Persistent bilateral perihilar mid and lower lung predominant alveolar infiltrate with progression on the right. Electronically signed by: Joie Bernardo M.D. Narrative 05/23/2021 8:19 AM MANAGER ED Examination: XR CHEST 1 VIEW Date: 05/23/2021 [...] lt * POCT glucose (05/23/2021 4:58 AM MANAGER ED) Glucose, POC 130 70 - 199 mg/dL [facility] Blood 05/23/2021 4:58 AM MANAGER ED 05/23/2021 4:58 AM MANAGER ED us Rhina Granados MD LAB POCT ORDERABLES - DEVICE Final Result Performing Organization Address [facility] Co de Phone Number [place] [address] [address] [facility] [place] [address] * POCT glucose (05/23/2021 4:02 AM MANAGER ED) Glucose, POC 140 70 - 199 mg/dL [facility] Blood 05/23/2021 4:02 AM MANAGER ED 05/23/2021 4:02 AM MANAGER ED Rhina Granados MD LAB POCT ORDERABLES - DEVICE Final Result Performing Organization Address [facility] de Phone Number [place] [address] [place] [address] * eGFR (05/23/2021 3:18 AM MANAGER ED) eGFR 121 mL/min/1.7 3 m2 [facility] Comment: Interpretive Data Reference Interval [...] last reviewed 2020 Blood 05/23/2021 3:18 AM MANAGER ED 05/23/2021 3:23 AM MANAGER ED Silviano Huddleston NP LAB BLOOD ORDERABLES Final Result Performing Organization Address City/[facility]/ZIP Co de Phone Number [place] [address] [place] [address] * POCT glucose (05/23/2021 3:18 AM MANAGER ED) Glucose, POC 137 70 - 199 mg/dL [facility] Blood 05/23/2021 3:18 AM MANAGER ED 05/23/2021 3:18 AM MANAGER ED Rhina Granados MD LAB POCT ORDERABLES - DEVICE Final Result Performing Organization Address [facility] de Phone Number [facility] [address] [place] [address] * (ABNORMAL) Basic metabolic panel (05/23/2021 3:18 AM MANAGER ED) Sodium 132(L) 135 - 145 mmol/L [facility] Potassium, pl 3.5 3.3 - 4.9 mmol/L [facility] Chloride 95(L) 97 - 110 mmol/L [facility] CO2 23 22 - 32 mmol/L [facility] Anion gap 14 2 - 15 mmol/L [facility] BUN 21 8 - 25 mg/dL [facility] Creatinine 0.48(L) 0.80 - 1.30 mg/dL [facility] Glucose 141 70 - 199 mg/dL [facility] Comment: Interpretive Data Fasting glucose [...] 2017. Calcium 8.4(L) 8.5 - 10.3 mg/dL [facility] Blood 05/23/2021 3:18 AM MANAGER ED 05/23/2021 3:23 AM MANAGER ED Silviano Huddleston [employer] LAB BLOOD ORDERABLES Final Result Performing Organization Address City/[facility]/ZIP Co de Phone Number [place] [address] [place] [address] * (ABNORMAL) CBC without differential (05/23/2021 3:18 AM MANAGER ED) Pathologist [facility] WBC 10.0(H) 3.8 - 9.9 K/cumm [facility] Hgb 9.0(L) 13.0 - 17.5 g/dL [facility] Hct 27.8(L) 38.9 - 50.3 % [facility] Plt 408(H) 150 - 400 K/cumm [facility] MPV 11.4 9.1 - 12.3 fL [facility] RBC 3.06(L) 4.30 - 5.80 M/cumm [facility] MCV 90.8 81.3 - 96.4 fL [facility] MCH 29.4 27.1 - 33.3 pg [facility] MCHC 32.4 32.3 - 35.7 g/dL [facility] RDW CV 13.3 11.1 - 14.9 % [facility] RDW SD 44.3 35.7 - 48.1 fL [facility] NRBC abs 0.00 0.00 - 0.01 K/cumm [facility] Blood 05/23/2021 3:18 AM MANAGER ED 05/23/2021 3:23 AM MANAGER ED Silviano Huddleston [employer] LAB BLOOD ORDERABLES Final Result Performing Organization Address City/[facility]/ZIP Co de Phone Number [place] [address] Department [employer] [place], [place] [id number] * Magnesium (05/23/2021 3:18 AM MANAGER ED) Magnesium 1.7 1.4 - 2.5 mg/dL [facility] Blood 05/23/2021 3:18 AM MANAGER ED 05/23/2021 3:23 AM MANAGER ED Silviano Huddleston [employer] LAB BLOOD ORDERABLES Final Result Performing Organization Address [facility] Co de Phone Number [place] [address] [facility] [place] [address] * Phosphorus (05/23/2021 3:18 AM MANAGER ED) Phosphorus, pl 3.0 2.3 - 4.5 mg/dL [facility] Blood 05/23/2021 3:18 AM MANAGER ED 05/23/2021 3:23 AM MANAGER ED Silviano Huddleston [employer] LAB BLOOD ORDERABLES Final Result Performing Organization Address [facility] Co de Phone Number [place] [address] [facility] [place] [address] * POCT glucose (05/23/2021 2:05 AM MANAGER ED) Glucose, POC 155 70 - 199 mg/dL [facility] Blood 05/23/2021 2:05 AM MANAGER ED 05/23/2021 2:05 AM MANAGER ED Rhina Granados MD LAB POCT ORDERABLES - DEVICE Final Result Performing Organization Address [facility] Co de Phone Number [place] [address] [facility] [place] [address] * POCT glucose (05/23/2021 1:10 AM MANAGER ED) Glucose, POC 134 70 - 199 mg/dL [facility] Blood 05/23/2021 1:10 AM MANAGER ED 05/23/2021 1:10 AM MANAGER ED Rhina Granados MD LAB POCT ORDERABLES - DEVICE Final Result Performing Organization Address City/[facility] Co de Phone Number [place] [address] [place] [address] * POCT glucose (05/22/2021 11:59 PM MANAGER ED) Glucose, POC 105 70 - 199 mg/dL [facility] Blood 05/22/2021 11:5 9 PM MANAGER ED 05/22/2021 11:59 PM MANAGER ED Rhina Granados MD LAB POCT ORDERABLES - DEVICE Final Result Performing Organization Address [facility] de Phone Number [place] [address] [place] [address] * Critical Care (05/22/2021 11:35 PM MANAGER ED) Narrative Frank Dugan MD - 05/22/2021 11:35 PM MANAGER ED Frank Dugan MD ? 05/23/2021 ??5:38 AM [...] plan with the ICU team and other medical/aws consultant staff, making frequent assessments and decisions [...] Result * POCT glucose (05/22/2021 11:06 PM MANAGER ED) Glucose, POC 125 70 - 199 mg/dL [facility] Blood 05/22/2021 11:0 6 PM MANAGER ED 05/22/2021 11:06 PM MANAGER ED Rhina Granados MD LAB POCT ORDERABLES - DEVICE Final Result Performing Organization Address [facility] Co de Phone Number [facility] [address] [place] [address] * POCT glucose (05/22/2021 10:04 PM MANAGER ED) Glucose, POC 124 70 - 199 mg/dL [facility] Blood 05/22/2021 10:0 4 PM MANAGER ED 05/22/2021 10:04 PM MANAGER ED Rhina Granados MD LAB POCT ORDERABLES - DEVICE Final Result Performing Organization Address [facility] Co de Phone Number [facility] [address] [facility] [place] [address] * POCT glucose (05/22/2021 9:21 PM MANAGER ED) Glucose, POC 160 70 - 199 mg/dL [facility] Blood 05/22/2021 9:21 PM MANAGER ED 05/22/2021 9:21 PM MANAGER ED us Rhina Granados MD LAB POCT ORDERABLES - DEVICE Final Result Performing Organization Address [facility] Co de Phone Number [facility] [address] [facility] [place] [address] * POCT glucose (05/22/2021 8:18 PM MANAGER ED) Glucose, POC 184 70 - 199 mg/dL [facility] Blood 05/22/2021 8:18 PM MANAGER ED 05/22/2021 8:18 PM MANAGER ED us Rhina Granados MD LAB POCT ORDERABLES - DEVICE Final Result Performing Organization Address [facility] de Phone Number [facility] [address] [facility] [place] [address] * POCT glucose (05/22/2021 5:56 PM MANAGER ED) Glucose, POC 157 70 - 199 mg/dL [facility] Blood 05/22/2021 5:56 PM MANAGER ED 05/22/2021 5:56 PM MANAGER ED us Rhina Granados MD LAB POCT ORDERABLES - DEVICE Final Result Performing Organization Address [facility] de Phone Number [facility] [address] [address] [facility] [place] [address] * POCT glucose (05/22/2021 4:55 PM MANAGER ED) Glucose, POC 160 70 - 199 mg/dL [facility] Blood 05/22/2021 4:55 PM MANAGER ED 05/22/2021 4:55 PM MANAGER ED us Rhina Granados MD LAB POCT ORDERABLES - DEVICE Final Result Performing Organization Address [facility]/ZIP Co de Phone Number [place] [address] [address] [facility] [place] [address] * POCT glucose (05/22/2021 3:47 PM MANAGER ED) Glucose, POC 140 70 - 199 mg/dL [facility] Blood 05/22/2021 3:47 PM MANAGER ED 05/22/2021 3:47 PM MANAGER ED Rhina Granados MD LAB POCT ORDERABLES - DEVICE Final Result Performing Organization Address [facility] Co de Phone Number [place] [address] [facility] [place] [address] * POCT glucose (05/22/2021 2:35 PM MANAGER ED) Glucose, POC 153 70 - 199 mg/dL [facility] Blood 05/22/2021 2:35 PM MANAGER ED 05/22/2021 2:35 PM MANAGER ED Rhina Granados MD LAB POCT ORDERABLES - DEVICE Final Result Performing Organization Address [facility] Co de Phone Number [place] [address] [address] [facility] [place] [address] * POCT glucose (05/22/2021 1:32 PM MANAGER ED) Glucose, POC 140 70 - 199 mg/dL [facility] Blood 05/22/2021 1:32 PM MANAGER ED 05/22/2021 1:32 PM MANAGER ED Rhina Granados MD LAB POCT ORDERABLES - DEVICE Final Result Performing Organization Address [facility] Co de Phone Number [place] [address] [facility] [place] [address] * POCT glucose (05/22/2021 12:27 PM MANAGER ED) Glucose, POC 156 70 - 199 mg/dL [facility] Blood 05/22/2021 12:2 7 PM MANAGER ED 05/22/2021 12:27 PM MANAGER ED us Rhina Granados MD LAB POCT ORDERABLES - DEVICE Final Result Performing Organization Address [facility] de Phone Number [place] [address] [address] [facility] [place] [address] * POCT glucose (05/22/2021 11:30 AM MANAGER ED) Glucose, POC 194 70 - 199 mg/dL [facility] Blood 05/22/2021 11:3 0 AM MANAGER ED 05/22/2021 11:30 AM MANAGER ED us Rhina Granados MD LAB POCT ORDERABLES - DEVICE Final Result Performing Organization Address [facility] Phone Number [facility] [address] [facility] [place] [address] * (ABNORMAL) POCT glucose (05/22/2021 10:35 AM MANAGER ED) Glucose, POC 252(H) 70 - 199 mg/dL [facility] Blood 05/22/2021 10:3 5 AM MANAGER ED 05/22/2021 10:35 AM MANAGER ED us Rhina Granados MD LAB POCT ORDERABLES - DEVICE Final Result Performing Organization Address [facility] de Phone Number [place] [address] [facility] [place] [address] * (ABNORMAL) POCT glucose (05/22/2021 9:32 AM MANAGER ED) Glucose, POC 284(H) 70 - 199 mg/dL [facility] Blood 05/22/2021 9:32 AM MANAGER ED 05/22/2021 9:32 AM MANAGER ED us Rhina Granados MD LAB POCT ORDERABLES - DEVICE Final Result [place] [address] Department of Laboratories [place] [phone] * XR Chest 1 Vw Portable (05/22/2021 8:36 AM MANAGER ED) Anatomical Region Laterality Modality Body, Chest N/A Computed Radiogr aphy 05/22/2021 9:56 AM MANAGER ED Impressions 05/22/2021 9:56 AM MANAGER ED Persistent near confluent alveolar infiltrate throughout the left lower lobe with milder involvement of the left upper lobe and right hemithorax.. Electronically signed by: Joie Bernardo M.D. Narrative 05/22/2021 9:56 AM MANAGER ED Examination: XR CHEST 1 VIEW Date: 05/22/2021 [...] hemithorax.. Electronically signed by: Joie Bernardo M.D. Rhina Granados MD IMG XR PROCEDURES Final Resu lt * (ABNORMAL) POCT glucose (05/22/2021 8:28 AM MANAGER ED) Glucose, POC 225(H) 70 - 199 mg/dL [facility] Blood 05/22/2021 8:28 AM MANAGER ED 05/22/2021 8:28 AM MANAGER ED Rhina Granados MD LAB POCT ORDERABLES - DEVICE Final Result [place] [address] [address] Department [place] [address] * Critical Care (05/22/2021 7:44 AM MANAGER ED) Narrative Alexandru Porter MD - 05/22/2021 7:44 AM MANAGER ED Silviano Huddleston NP ? 05/22/2021 ??5:28 PM [...] plan with the ICU team and other medical/aws consultant staff, making frequent assessments and decisions [...] in the medical record us Silviano Huddleston [employer]/BEDSIDE ORDERABL ES Final Result * POCT glucose (05/22/2021 6:25 AM MANAGER ED) Glucose, POC 163 70 - 199 mg/dL [facility] Blood 05/22/2021 6:25 AM MANAGER ED 05/22/2021 6:25 AM MANAGER ED us Rhina Granados MD LAB POCT ORDERABLES - DEVICE Final Result [facility] [address] Department [place] [address] * (ABNORMAL) Pro B-type natriuretic peptide (05/22/2021 3:49 AM MANAGER ED) NT-proBNP 2,233(H) <=300 pg/mL [facility] Comment: Interpretive Comments: A. Dyspnea in Acute [...] Revised Date: 2018. Blood 05/22/2021 3:49 AM MANAGER ED 05/22/2021 8:52 AM MANAGER ED us Nalini Clayton MD LAB BLOOD ORDERABLES Final Resul t [place] [address] Department [place] [address] * eGFR (05/22/2021 3:49 AM MANAGER ED) eGFR 109 mL/min/1.7 3 m2 [place] [facility] Comment: Interpretive [...] last reviewed 2020 Blood 05/22/2021 3:49 AM MANAGER ED 05/22/2021 4:10 AM MANAGER ED us Silviano Huddleston [employer] LAB BLOOD ORDERABLES Final Result [facility] [address] Department of Laboratories [place], [place] [phone] * (ABNORMAL) Basic metabolic panel (05/22/2021 3:49 AM MANAGER ED) Sodium 134(L) 135 - 145 mmol/L [facility] Potassium, pl 3.5 3.3 - 4.9 mmol/L [facility] Chloride 98 97 - 110 mmol/L [facility] CO2 22 22 - 32 mmol/L [facility] Anion gap 14 2 - 15 mmol/L [facility] BUN 24 8 - 25 mg/dL [facility] Creatinine 0.62(L) 0.80 - 1.30 mg/dL [facility] Glucose 227(H) 70 - 199 mg/dL [facility] Comment: Interpretive Data Fasting glucose [...] 8.6 8.5 - 10.3 mg/dL [facility] Blood 05/22/2021 3:49 AM MANAGER ED 05/22/2021 4:10 AM MANAGER ED Silvianoreed Saldivar Flaquito [employer] LAB BLOOD ORDERABLES Final Result Performing Organization Address City/[facility] Co de Phone Number [place] [address] [place] [address] * (ABNORMAL) CBC without differential (05/22/2021 3:49 AM MANAGER ED) WBC 7.3 3.8 - 9.9 K/cumm [facility] Hgb 9.2(L) 13.0 - 17.5 g/dL [facility] Hct 28.0(L) 38.9 - 50.3 % [facility] Plt 381 150 - 400 K/cumm [facility] MPV 11.8 9.1 - 12.3 fL [facility] RBC 3.05(L) 4.30 - 5.80 M/cumm [facility] MCV 91.8 81.3 - 96.4 fL [facility] MCH 30.2 27.1 - 33.3 pg [facility] MCHC 32.9 32.3 - 35.7 g/dL [facility] RDW CV 13.3 11.1 - 14.9 % [facility] RDW SD 44.4 35.7 - 48.1 fL [facility] NRBC abs 0.00 0.00 - 0.01 K/cumm [facility] Blood 05/22/2021 3:49 AM MANAGER ED 05/22/2021 4:10 AM MANAGER ED Silviano Huddleston [employer]LE[employer] LAB BLOOD ORDERABLES Final Result Performing Organization Address [facility] Co de Phone Number [place] [address] [facility] [place] [address] * Magnesium (05/22/2021 3:49 AM MANAGER ED) Magnesium 2.1 1.4 - 2.5 mg/dL [facility] Blood 05/22/2021 3:49 AM MANAGER ED 05/22/2021 4:10 AM MANAGER ED Silviano Huddleston NP LAB BLOOD ORDERABLES Final Result Performing Organization Address [facility] Co de Phone Number [place] [address] [facility] [place] [address] * (ABNORMAL) Phosphorus (05/22/2021 3:49 AM MANAGER ED) Phosphorus, pl 2.2(L) 2.3 - 4.5 mg/dL [facility] Blood 05/22/2021 3:49 AM MANAGER ED 05/22/2021 4:10 AM MANAGER ED Silviano Huddleston NP LAB BLOOD ORDERABLES Final Result Performing Organization Address [facility] de Phone Number [place] [address] [facility] [place] [address] * (ABNORMAL) POCT glucose (05/22/2021 2:27 AM MANAGER ED) Glucose, POC 266(H) 70 - 199 mg/dL [facility] Blood 05/22/2021 2:27 AM MANAGER ED 05/22/2021 2:27 AM MANAGER ED Rhina Granados MD LAB POCT ORDERABLES - DEVICE Final Result Performing Organization Address [facility] Co de Phone Number [place] [address] [address] [facility] [place] [address] * (ABNORMAL) POCT glucose (05/21/2021 11:39 PM MANAGER ED) Glucose, POC 268(H) 70 - 199 mg/dL [facility] Blood 05/21/2021 11:3 9 PM MANAGER ED 05/21/2021 11:39 PM MANAGER ED Rhina Granados MD LAB POCT ORDERABLES - DEVICE Final Result Performing Organization Address City/State/ZIP Co nh Phone Number [facility] [address] [facility] Department [place] [address] * Critical Care (05/21/2021 11:31 PM MANAGER ED) Narrative Jose Conti MD - 05/21/2021 11:31 PM MANAGER ED Jose Conti MD ? 05/21/2021 11:33 PM [...] plan with the ICU team and other medical/aws consultant staff, making frequent assessments and decisions [...] * (ABNORMAL) POCT glucose (05/21/2021 9:41 PM MANAGER ED) [facility] Glucose, POC 224(H) 70 - 199 mg/dL [facility] Blood 05/21/2021 9:41 PM MANAGER ED 05/21/2021 9:41 PM MANAGER ED us Rhina Granados MD LAB POCT ORDERABLES - DEVICE Final Result Performing Organization Address [facility] de Phone Number [facility] [address] [place] [address] * eGFR (05/21/2021 9:18 PM MANAGER ED) [facility] eGFR 102 mL/min/1.7 3 m2 [facility] Comment: Interpretive Data Reference Interval Normal ?>/= [...] last reviewed 2020 Blood 05/21/2021 9:18 PM MANAGER ED 05/21/2021 11:51 PM MANAGER ED us Jose Conti MD LAB BLOOD ORDERABLES Final Resul t Performing Organization Address [facility] de Phone Number [facility] [address] Department [place] [address] * (ABNORMAL) Basic metabolic panel (05/21/2021 9:18 PM MANAGER ED) Sodium 135 135 - 145 mmol/L [facility] [...] 8.5 - 10.3 mg/dL [facility] Blood 05/21/2021 9:18 PM MANAGER ED 05/21/2021 11:51 PM MANAGER ED Jose Conti MD LAB BLOOD ORDERABLES Final Resul t [facility] [address] [place] [address] * Phosphorus (05/21/2021 9:18 PM MANAGER ED) Phosphorus, pl 2.7 2.3 - 4.5 mg/dL [facility] Blood 05/21/2021 9:18 PM MANAGER ED 05/21/2021 9:29 PM MANAGER ED us Jose Conti MD LAB BLOOD ORDERABLES Final Resul t Performing Organization Address [facility] Co de Phone Number [facility] [place] [address] [facility] [place] [address] * Magnesium (05/21/2021 9:18 PM MANAGER ED) Magnesium 2.3 1.4 - 2.5 mg/dL [facility] CH Blood 05/21/2021 9:18 PM MANAGER ED 05/21/2021 9:29 PM MANAGER ED Jose Conti MD LAB BLOOD ORDERABLES Final Resul t Performing Organization Address [facility] Co de Phone Number SHARIFAMASON DNO [address] [facility] [place] [address] * Calcium, ionized (05/21/2021 9:18 PM MANAGER ED) Ca, ionized, bld 4.70 4.60 - 5.20 mg/dL [facility] CH Ca, ionized, bld, calc 4.75 4.60 - 5.20 mg/dL [facility] CH Blood 05/21/2021 9:18 PM MANAGER ED 05/21/2021 9:28 PM MANAGER ED us Jose Conti MD LAB BLOOD ORDERABLES Final Resul t Performing Organization Address [facility] Co de Phone Number SHARIFAMASON DON [address] [facility] [place] [address] * (ABNORMAL) POCT glucose (05/21/2021 8:14 PM MANAGER ED) Glucose, POC 312(H) 70 - 199 mg/dL [facility] CH Blood 05/21/2021 8:14 PM MANAGER ED 05/21/2021 8:14 PM MANAGER ED us Rhina Granados MD LAB POCT ORDERABLES - DEVICE Final Result Performing Organization Address [facility] Co de Phone Number [facility] DON [address] [place] [address] * (ABNORMAL) POCT glucose (05/21/2021 3:46 PM MANAGER ED) Glucose, POC 318(H) 70 - 199 mg/dL [facility] CH Blood 05/21/2021 3:46 PM MANAGER ED 05/21/2021 3:46 PM MANAGER ED Rhina Granados MD LAB POCT ORDERABLES - DEVICE Final Result Performing Organization Address City/[facility]/ZIP Co de Phone Number [facility] [address] [place] [address] * (ABNORMAL) POCT glucose (05/21/2021 11:59 AM MANAGER ED) Glucose, POC 218(H) 70 - 199 mg/dL [facility] Blood 05/21/2021 11:5 9 AM MANAGER ED 05/21/2021 11:59 AM MANAGER ED Rhina Granados MD LAB POCT ORDERABLES - DEVICE Final Result Performing Organization Address [facility] Co de Phone Number [facility] [address] [place] [address] * POCT glucose (05/21/2021 8:06 AM MANAGER ED) Glucose, POC 177 70 - 199 mg/dL [facility] Blood 05/21/2021 8:06 AM MANAGER ED 05/21/2021 8:06 AM MANAGER ED Rhina Granados MD LAB POCT ORDERABLES - DEVICE Final Result Performing Organization Address City/[facility]/ZIP Co de Phone Number [facility] [address] [place] [address] * Critical Care (05/21/2021 8:00 AM MANAGER ED) Narrative Alexandru Porter MD - 05/21/2021 8:00 AM MANAGER ED Silviano Huddleston NP ? 05/21/2021 ??8:24 PM [...] plan with the ICU team and other medical/aws consultant staff, making frequent assessments and decisions [...] participate in decision making us Silviano Huddleston [employer] IN CLINIC/BEDSIDE ORDERABL ES Final Result * eGFR (05/21/2021 4:13 AM MANAGER ED) [facility] eGFR 99 mL/min/1.7 3 m2 [facility] [...] last reviewed 2020 Blood 05/21/2021 4:13 AM MANAGER ED 05/21/2021 4:13 AM MANAGER ED us Silviano Huddleston COLLE[employer] LAB BLOOD ORDERABLES Final Result [facility] [address] Department [place] [address] * (ABNORMAL) Basic metabolic panel (05/21/2021 4:13 AM MANAGER ED) Sodium 135 135 - 145 mmol/L [facility] [...] 10.3 mg/dL [facility] Blood 05/21/2021 4:13 AM MANAGER ED 05/21/2021 4:13 AM MANAGER ED Silviano Huddleston COLLEGE T[employer]OR LAB BLOOD ORDERABLES Final Result Performing Organization Address [facility] de Phone Number [facility] [address] [place] [address] * Magnesium (05/21/2021 4:13 AM MANAGER ED) Magnesium 2.3 1.4 - 2.5 mg/dL [facility] Blood 05/21/2021 4:13 AM MANAGER ED 05/21/2021 4:13 AM MANAGER ED Silviano Huddleston [employer]LE[employer] LAB BLOOD ORDERABLES Final Result Performing Organization Address [facility] de Phone Number [facility] [address] [place] [address] * (ABNORMAL) Phosphorus (05/21/2021 4:13 AM MANAGER ED) Phosphorus, pl 2.1(L) 2.3 - 4.5 mg/dL [facility] Blood 05/21/2021 4:13 AM MANAGER ED 05/21/2021 4:13 AM MANAGER ED Silviano Huddleston COLLEGE T[employer]OR LAB BLOOD ORDERABLES Final Result Performing Organization Address [facility] de Phone Number [facility] [address] [place] [address] * (ABNORMAL) CBC without differential (05/21/2021 3:57 AM MANAGER ED) WBC 8.3 3.8 - 9.9 K/cumm [facility] Hgb 9.5(L) 13.0 - 17.5 g/dL [facility] CH Hct 28.7(L) 38.9 - 50.3 % [facility] CH Plt 355 150 - 400 K/cumm [facility] CH MPV 11.6 9.1 - 12.3 fL [facility] CH RBC 3.20(L) 4.30 - 5.80 M/cumm [facility] CH MCV 89.7 81.3 - 96.4 fL [facility] CH MCH 29.7 27.1 - 33.3 pg [facility] CH MCHC 33.1 32.3 - 35.7 g/dL [facility] CH RDW CV 13.2 11.1 - 14.9 % [facility] CH RDW SD 43.7 35.7 - 48.1 fL [facility] CH NRBC abs 0.00 0.00 - 0.01 K/cumm [facility] CH Blood 05/21/2021 3:57 AM MANAGER ED 05/21/2021 4:13 AM MANAGER ED us Silviano Huddleston NP LAB BLOOD ORDERABLES Final Result Performing Organization Address [facility] Co de Phone Number [facility] [address] [place] [address] * POCT glucose (05/21/2021 2:57 AM MANAGER ED) Pathologist [facility] Glucose, POC 169 70 - 199 mg/dL [facility] Blood 05/21/2021 2:57 AM MANAGER ED 05/21/2021 2:57 AM MANAGER ED Rhina Granados MD LAB POCT ORDERABLES - DEVICE Final Result Performing Organization Address [facility] Co de Phone Number [facility] [address] [place] [address] * Critical Care (05/20/2021 11:33 PM MANAGER ED) Narrative Jose Conti MD - 05/20/2021 11:33 PM MANAGER ED Jose Conti MD ? 05/21/2021 11:34 PM [...] plan with the ICU team and other medical/aws consultant staff, making frequent assessments and decisions [...] * (ABNORMAL) POCT glucose (05/20/2021 7:55 PM MANAGER ED) Glucose, POC 207(H) 70 - 199 mg/dL [facility] Blood 05/20/2021 7:55 PM MANAGER ED 05/20/2021 7:55 PM MANAGER ED Rhina Granados MD LAB POCT ORDERABLES - DEVICE Final Result Performing Organization Address [facility] Co de Phone Number [facility] DON [address] [facility] [place] [address] * (ABNORMAL) POCT glucose (05/20/2021 5:03 PM MANAGER ED) Glucose, POC 349(H) 70 - 199 mg/dL [facility] CH Blood 05/20/2021 5:03 PM MANAGER ED 05/20/2021 5:03 PM MANAGER ED Rhina Granados MD LAB POCT ORDERABLES - DEVICE Final Result Performing Organization Address [facility] de Phone Number [facility] DON [address] [facility] [place] [address] * (ABNORMAL) POCT glucose (05/20/2021 12:50 PM MANAGER ED) Glucose, POC 343(H) 70 - 199 mg/dL [facility] CH Blood 05/20/2021 12:5 0 PM MANAGER ED 05/20/2021 12:50 PM MANAGER ED Rhina Granados MD LAB POCT ORDERABLES - DEVICE Final Result Performing Organization Address [facility] Co de Phone Number [facility] DON [address] [facility] [place] [address] * (ABNORMAL) POCT glucose (05/20/2021 9:02 AM MANAGER ED) Glucose, POC 238(H) 70 - 199 mg/dL [facility] CH Blood 05/20/2021 9:02 AM MANAGER ED 05/20/2021 9:02 AM MANAGER ED Rhina Granados MD LAB POCT ORDERABLES - DEVICE Final Result Performing Organization Address [facility] Co de Phone Number [facility] DON [address] [facility] [place] [address] * Critical Care (05/20/2021 8:00 AM MANAGER ED) Narrative Alexandru Porter MD - 05/20/2021 8:00 AM MANAGER ED Silviano Huddleston NP ? 05/20/2021 ??5:41 PM [...] plan with the ICU team and other medical/aws consultant staff, making frequent assessments and decisions [...] (ABNORMAL) CRP (acute phase) (05/20/2021 3:28 AM MANAGER ED) CRP 68.7(H) <=10.0 mg/L [facility] Blood 05/20/2021 3:28 AM MANAGER ED 05/20/2021 11:47 AM MANAGER ED us Alexandru Porter MD LAB BLOOD ORDERABLES Final Result Performing Organization Address [facility] de Phone Number H[facility]RIK [address] [employer] [place], [place] [address] * eGFR (05/20/2021 3:28 AM MANAGER ED) eGFR 70 mL/min/1.7 3 m2 [facility] Comment: Interpretive Data Reference Interval [...] last reviewed 2020 Blood 05/20/2021 3:28 AM MANAGER ED 05/20/2021 4:07 AM MANAGER ED us Rhina Granados MD LAB BLOOD ORDERABLES Final R esult Performing Organization Address [facility] Co de Phone Number [facility]K [address] [place] [address] * (ABNORMAL) Basic metabolic panel (05/20/2021 3:28 AM MANAGER ED) Sodium 132(L) 135 - 145 mmol/L [facility] CH Potassium, pl 4.0 3.3 - 4.9 mmol/L [facility] CH Chloride 94(L) 97 - 110 mmol/L [facility] CH CO2 21(L) 22 - 32 mmol/L [facility] CH Anion gap 17(H) 2 - 15 mmol/L [facility] CH BUN 45(H) 8 - 25 mg/dL [facility] CH Creatinine 1.14 0.80 - 1.30 mg/dL [facility] CH Glucose 186 70 - 199 mg/dL [facility] CH Comment: [...] Calcium 8.8 8.5 - 10.3 mg/dL [facility] CH Blood 05/20/2021 3:28 AM MANAGER ED 05/20/2021 3:57 AM MANAGER ED Rhina Granados MD LAB BLOOD ORDERABLES Final R esult [facility] [address] [place] [address] * (ABNORMAL) CBC without differential (05/20/2021 3:28 AM MANAGER ED) WBC 9.3 3.8 - 9.9 K/cumm [facility] CH Hgb 10.6(L) 13.0 - 17.5 g/dL [facility] CH Hct 32.5(L) 38.9 - 50.3 % [facility] CH Plt 381 150 - 400 K/cumm [facility] CH MPV 11.7 9.1 - 12.3 fL [facility] CH RBC 3.59(L) 4.30 - 5.80 M/cumm [facility] CH MCV 90.5 81.3 - 96.4 fL [facility] CH MCH 29.5 27.1 - 33.3 pg [facility] CH MCHC 32.6 32.3 - 35.7 g/dL [facility] CH RDW CV 13.2 11.1 - 14.9 % [facility] CH RDW SD 43.9 35.7 - 48.1 fL [facility] CH NRBC abs 0.00 0.00 - 0.01 K/cumm [facility] CH Blood 05/20/2021 3:28 AM MANAGER ED 05/20/2021 3:58 AM MANAGER ED Silviano Huddleston COLLEGE T[employer]OR LAB BLOOD ORDERABLES Final Result Performing Organization Address City/[facility] Co de Phone Number H[facility]RIK [address] [facility] [place] [address] * Magnesium (05/20/2021 3:28 AM MANAGER ED) Magnesium 2.4 1.4 - 2.5 mg/dL [facility] Blood 05/20/2021 3:28 AM MANAGER ED 05/20/2021 3:57 AM MANAGER ED Silviano Huddleston COLLEGE T[employer]OR LAB BLOOD ORDERABLES Final Result Performing Organization Address City/[facility] Co de Phone Number [facility] [address] [facility] [place] [address] * Phosphorus (05/20/2021 3:28 AM MANAGER ED) Phosphorus, pl 3.2 2.3 - 4.5 mg/dL [facility] Blood 05/20/2021 3:28 AM MANAGER ED 05/20/2021 3:57 AM MANAGER ED Silviano Huddleston COLLEGE T[employer]OR LAB BLOOD ORDERABLES Final Result Performing Organization Address City/[facility] Co de Phone Number [facility]K [address] Department [place] [address] * POCT glucose (05/20/2021 1:28 AM MANAGER ED) Glucose, POC 155 70 - 199 mg/dL [facility] Blood 05/20/2021 1:28 AM MANAGER ED 05/20/2021 1:28 AM MANAGER ED Rhina Granados MD LAB POCT ORDERABLES - DEVICE Final Result [facility] [address] [facility] Department [place] [address] * eGFR (05/20/2021 12:25 AM MANAGER ED) eGFR 77 mL/min/1.7 3 m2 [facility] Comment: Interpretive Data Reference Interval [...] reviewed 2020 Blood 05/20/2021 12:2 5 AM MANAGER ED 05/20/2021 12:35 AM MANAGER ED Rhina Granados MD LAB BLOOD ORDERABLES Final R esult Performing Organization Address City/[facility] Co de Phone Number [facility]RIK DON [address] [place] [address] * (ABNORMAL) Basic metabolic panel (05/20/2021 12:25 AM MANAGER ED) Sodium 131(L) 135 - 145 mmol/L [facility] [...] Glucose 173 70 - 199 mg/dL [facility] Comment: Interpretive [...] 2017. Calcium 8.4(L) 8.5 - 10.3 mg/dL [facility] Blood 05/20/2021 12:2 5 AM MANAGER ED 05/20/2021 12:35 AM MANAGER ED Rhina Granados MD LAB BLOOD ORDERABLES Final R esult Performing Organization Address [facility] Co de Phone Number H[facility]RIK DON [address] [place] [address] * (ABNORMAL) Influenza A/B, RSV, and COVID-19 PCR Nasopharyngeal (05/19/2021 8:54 PM MANAGER ED) COVID-19 RNA Positive(A) Negative [facility] Comment: Interpretive data: Synonyms for this test include: PCR and NAAT . ??This test is performed using the [employer] Xpert Xpress assay. This is a real-time [...] 24, 2020. Influenza A RNA Negative Negative [facility] Influenza B RNA Negative Negative [facility] RSV RNA Negative Negative [facility] Comment: Interpretive data: This test is performed using the [employer] Xpert Assay. This is a multiplex, real- time reverse transcriptase PCR assay that detects influenza A, influenza B, and respiratory syncytial virus RNA. This assay has been cleared by the [place] Food and Drug Administration, and its performance characteristics have been verified by the performing laboratory. ?? Interpretive data last revised 2020. First COVID-19 test? No [facility] Employeed in healthcare? No [facility] Group care resident? No [facility] Hospitalized? Yes [facility] Is patient in ICU? Yes [facility] Symptomatic as defined by CDC? Yes [facility] Nasopharyngeal 05/19/2021 8: 54 PM MANAGER ED 05/19/2021 9:20 PM MANAGER ED Narrative [facility] - 05/19/2021 10:03 PM MANAGER ED Date of Symptom Onset->05/16/21 Reason for testing?->Symptomatic (not immunocompromised) Known exposure to confirmed or suspected COVID-19 case?->No Elena Kelly NP LAB MICROBIOLOGY - GENERAL ORDERABLES Final Result [facility] [address] Department [place] [address] * POCT glucose (05/19/2021 8:37 PM MANAGER ED) Glucose, POC 165 70 - 199 mg/dL [facility] Blood 05/19/2021 8:37 PM MANAGER ED 05/19/2021 8:37 PM MANAGER ED us Rhina Granados MD LAB POCT ORDERABLES - DEVICE Final Result Performing Organization Address City/[place] [address] [address] Department [place] [address] * Critical Care (05/19/2021 7:00 PM MANAGER ED) Narrative Jose Conti MD - 05/19/2021 7:00 PM MANAGER ED Elena Kelly NP ? 05/20/2021 ??6:22 AM [...] plan with the ICU team and other medical/aws consultant staff, making frequent assessments and decisions [...] Final Result * eGFR (05/19/2021 4:45 PM MANAGER ED) eGFR 53 mL/min/1.7 3 m2 [facility] DON [...] last reviewed 2020 Blood 05/19/2021 4:45 PM MANAGER ED 05/19/2021 4:45 PM MANAGER ED us Rhina Granados MD LAB BLOOD ORDERABLES Final R esult [facility] [address] [place] [address] * (ABNORMAL) Basic metabolic panel (05/19/2021 4:45 PM MANAGER ED) Sodium 130(L) 135 - 145 mmol/L [facility] [...] 10.3 mg/dL [facility] Blood 05/19/2021 4:45 PM MANAGER ED 05/19/2021 4:45 PM MANAGER ED Rhina Granados MD LAB BLOOD ORDERABLES Final R esult [facility] [address] [place] [address] * (ABNORMAL) POCT glucose (05/19/2021 4:31 PM MANAGER ED) Glucose, POC 203(H) 70 - 199 mg/dL [facility] Blood 05/19/2021 4:31 PM MANAGER ED 05/19/2021 4:31 PM MANAGER ED us Rhina Granados MD LAB POCT ORDERABLES - DEVICE Final Result [facility] DON [address] [place] [address] * FL Sniff Test (05/19/2021 4:05 PM MANAGER ED) Anatomical Region Laterality Modality Head and Neck N/A Computed Radiogr aphy 05/20/2021 4:47 PM MANAGER ED Impressions 05/20/2021 4:47 PM MANAGER ED FINDINGS/IMPRESSION: Fluoroscopy was used while patient attempted deep inspiration and expiration with a single image obtained at each extreme and there was no significant diaphragm motion. Electronically signed by: Deandre Lomeli M.D. Narrative 05/20/2021 4:47 PM MANAGER ED EXAMINATION: FL SNIFF TEST HISTORY: Evaluate diaphragm [...] motion. Electronically signed by: Deandre Lomeli M.D. Caleb MOODY IMG FLUOROSCOPY PROCE DURES Final Result * (ABNORMAL) POCT glucose (05/19/2021 1:00 PM MANAGER ED) [facility] Glucose, POC 239(H) 70 - 199 mg/dL [facility] Blood 05/19/2021 1:00 PM MANAGER ED 05/19/2021 1:00 PM MANAGER ED Rhina Granados MD LAB POCT ORDERABLES - DEVICE Final Result Performing Organization Address City/[facility]/ZIP Co de Phone Number [facility] DON [address] [place] [place] [address] * CT Chest WO Contrast (05/19/2021 11:19 AM MANAGER ED) Anatomical Region Laterality Modality Body N/A Computed Tomogra phy 05/19/2021 4:12 PM MANAGER ED Impressions 05/19/2021 4:12 PM MANAGER ED 1. ??STATUS POST MEDIAN STERNOTOMY. 2. ??RIGHT-SIDED PICC CATHETER IN PLACE. 3. ??CORONARY ARTERY DISEASE. 4. ??MODERATE EMPHYSEMATOUS CHANGES IN THE LUNGS. 5. ??PATCHY ALVEOLAR INFILTRATE IN BOTH LUNGS. ??THIS CAN BE SEEN WITH A VIRAL-TYPE PNEUMONITIS. Electronically signed by: Humphrey Mojica M.D. Narrative 05/19/2021 4:12 PM MANAGER ED EXAMINATION: CT CHEST WO CONTRAST DATE: 05/19/2021 [...] lt * Critical Care (05/19/2021 10:34 AM MANAGER ED) Narrative Alexandru Porter MD - 05/19/2021 10:34 AM MANAGER ED Caleb Toth PA ? 05/19/2021 ??4:21 PM [...] plan with the patient's team and other medical/aws consultant staff. This time was in addition to and separate from care provided by other practitioners on this day of service. ?? us Caleb MOODY IN CLINIC/BEDSIDE ORD ERABLES Final Result * POCT glucose (05/19/2021 7:18 AM MANAGER ED) Glucose, POC 174 70 - 199 mg/dL [facility] Blood 05/19/2021 7:18 AM MANAGER ED 05/19/2021 7:18 AM MANAGER ED Rhina Granados MD LAB POCT ORDERABLES - DEVICE Final Result [facility] [address] [place] [address] * XR Chest 1 View (05/19/2021 6:09 AM MANAGER ED) Anatomical Region Laterality Modality Body, Chest N/A Computed Radiogr aphy 05/19/2021 1:10 PM MANAGER ED Impressions 05/19/2021 1:10 PM MANAGER ED Persistent ill-defined patchy left perihilar upper and lower lobe alveolar infiltrate and mild on the right. Electronically signed by: Joie Bernardo M.D. Narrative 05/19/2021 1:10 PM MANAGER ED Examination: XR CHEST 1 VIEW Date: 05/19/2021 [...] by: Joie Bernardo M.D. us Varsha Crowder COLLEGE T[employer]OR IMG XR PROCEDURES Final Re sult * (ABNORMAL) CBC without differential (05/19/2021 4:56 AM MANAGER ED) WBC 8.0 3.8 - 9.9 K/cumm [facility] Hgb 9.8(L) 13.0 - 17.5 g/dL [facility] Hct 29.1(L) 38.9 - 50.3 % [facility] Plt 308 150 - 400 K/cumm [facility] MPV 11.7 9.1 - 12.3 fL [facility] RBC 3.25(L) 4.30 - 5.80 M/cumm [facility] MCV 89.5 81.3 - 96.4 fL [facility] MCH 30.2 27.1 - 33.3 pg [facility] MCHC 33.7 32.3 - 35.7 g/dL [facility] RDW CV 13.4 11.1 - 14.9 % [facility] RDW SD 44.2 35.7 - 48.1 fL [facility] NRBC abs 0.00 0.00 - 0.01 K/cumm [facility] Blood 05/19/2021 4:56 AM MANAGER ED 05/19/2021 4:56 AM MANAGER ED Silviano Huddleston COLLEGE T[employer]OR LAB BLOOD ORDERABLES Final Result [facility] [address] Department [place] [address] * eGFR (05/19/2021 4:44 AM MANAGER ED) eGFR 65 mL/min/1.7 3 m2 [facility] Comment: Interpretive Data [...] last reviewed 2020 Blood 05/19/2021 4:44 AM MANAGER ED 05/19/2021 5:05 AM MANAGER ED us Rhina Granados MD LAB BLOOD ORDERABLES Final R esult [facility] [address] Department [place] [address] * (ABNORMAL) Basic metabolic panel (05/19/2021 4:44 AM MANAGER ED) Sodium 132(L) 135 - 145 mmol/L [facility] Potassium, pl 3.7 3.3 - 4.9 mmol/L [facility] Chloride 95(L) 97 - 110 mmol/L [facility] CH CO2 21(L) 22 - 32 mmol/L [facility] CH Anion gap 16(H) 2 - 15 mmol/L [facility] BUN 47(H) 8 - 25 mg/dL [facility] Creatinine 1.21 0.80 - 1.30 mg/dL [facility] Glucose 156 70 - 199 mg/dL [facility] Comment: Interpretive Data Fasting glucose >/= [...] 10.3 mg/dL [facility] Blood 05/19/2021 4:44 AM MANAGER ED 05/19/2021 4:55 AM MANAGER ED Rhina Granados MD LAB BLOOD ORDERABLES Final R esult Performing Organization Address [facility] Co de Phone Number [facility] [address] [facility] [place] [address] * Magnesium (05/19/2021 4:44 AM MANAGER ED) Pathologist [facility] Magnesium 2.4 1.4 - 2.5 mg/dL [facility] Blood 05/19/2021 4:44 AM MANAGER ED 05/19/2021 4:55 AM MANAGER ED Silviano Huddleston NP LAB BLOOD ORDERABLES Final Result Performing Organization Address [facility] de Phone Number [facility] [address] [place] [address] * Phosphorus (05/19/2021 4:44 AM MANAGER ED) Pathologist [facility] Phosphorus, pl 3.6 2.3 - 4.5 mg/dL [facility] Blood 05/19/2021 4:44 AM MANAGER ED 05/19/2021 4:55 AM MANAGER ED Silviano Huddleston COLLEGE T[employer]OR LAB BLOOD ORDERABLES Final Result Performing Organization Address [facility] de Phone Number [facility] [address] [place] [address] * eGFR (05/19/2021 2:05 AM MANAGER ED) eGFR 54 mL/min/1.7 3 m2 [facility] Comment: Interpretive Data Reference Interval [...] last reviewed 2020 Blood 05/19/2021 2:05 AM MANAGER ED 05/19/2021 2:05 AM MANAGER ED Elena Kelly NP LAB BLOOD ORDERABLES Final Result Performing Organization Address [facility] Co de Phone Number [facility] [address] [place] [address] * Magnesium (05/19/2021 2:05 AM MANAGER ED) [facility] Magnesium 2.4 1.4 - 2.5 mg/dL [facility] Blood 05/19/2021 2:05 AM MANAGER ED 05/19/2021 2:05 AM MANAGER ED Elena Kelly NP LAB BLOOD ORDERABLES Final Result Performing Organization Address [facility] de Phone Number [facility] [address] [place] [address] * (ABNORMAL) Basic metabolic panel (05/19/2021 2:05 AM MANAGER ED) Pathologist [facility] Sodium 131(L) 135 - 145 mmol/L [facility] Potassium, pl 3.9 3.3 - 4.9 mmol/L [facility] Chloride 95(L) 97 - 110 mmol/L [facility] CO2 21(L) 22 - 32 mmol/L [facility] Anion gap 15 2 - 15 mmol/L [facility] BUN 49(H) 8 - 25 mg/dL [facility] Creatinine 1.41(H) 0.80 - 1.30 mg/dL [facility] Glucose 180 70 - 199 mg/dL [facility] Comment: Interpretive Data Fasting glucose [...] 2017. Calcium 8.3(L) 8.5 - 10.3 mg/dL [facility] Blood 05/19/2021 2:05 AM MANAGER ED 05/19/2021 2:05 AM MANAGER ED us Elena Kelly NP LAB BLOOD ORDERABLES Final Result Performing Organization Address City/[facility]/ZIP Co de Phone Number [facility] [address] [place] [address] * POCT glucose (05/19/2021 1:43 AM MANAGER ED) Glucose, POC 166 70 - 199 mg/dL [facility] Blood 05/19/2021 1:43 AM MANAGER ED 05/19/2021 1:43 AM MANAGER ED us Rhina Granados MD LAB POCT ORDERABLES - DEVICE Final Result Performing Organization Address City/[facility]/ZIP Co de Phone Number [facility] [address] Department [address] [place], [place] [id number] * Potassium, whole blood (05/19/2021 1:28 AM MANAGER ED) Potassium, bld 3.8 3.3 - 4.9 mmol/L [facility] Comment: Interpretive Data Unable to assess hemolysis. ??Invitro hemolysis causes falsely elevated potassium. Current Interpretive Data was last revised on 2020. Blood 05/19/2021 1:28 AM MANAGER ED 05/19/2021 2:04 AM MANAGER ED Elena Kelly NP LAB BLOOD ORDERABLES Final Result Performing Organization Address [facility] Co de Phone Number [facility] [address] [place] [address] * (ABNORMAL) D-dimer, quantitative (05/18/2021 10:01 PM MANAGER ED) D-Dimer 1,998(H) <=499 ng/mL FEU [facility] Comment: Interpretive data FDA approved the D-dimer, [...] on 2019. Blood 05/18/2021 10:0 1 PM MANAGER ED 05/18/2021 10:01 PM MANAGER ED Elena Kelly NP LAB BLOOD ORDERABLES Final Result Performing Organization Address City/[facility] Co de Phone Number [facility] [address] [facility] [address] [place], [place] [id number] * (ABNORMAL) Hepatic function panel (05/18/2021 9:37 PM MANAGER ED) Bilirubin, total 0.6 0.1 - 1.2 mg/dL [facility] Bilirubin, direct 0.2 0.1 - 0.3 mg/dL [facility] Protein, pl 7.1 6.5 - 8.5 g/dL [facility] Albumin 3.6 3.5 - 5.0 g/dL [facility] Alk phos 86 40 - 130 Units/L [facility] ALT 18 7 - 55 Units/L [facility] AST 60(H) 10 - 50 Units/L [facility] Blood 05/18/2021 9:37 PM MANAGER ED 05/18/2021 10:00 PM MANAGER ED Elena Kelly NP LAB BLOOD ORDERABLES Final Result Performing Organization Address [facility] Co de Phone Number [facility] [address] [facility] [place] [address] * Beta-hydroxybutyrate (05/18/2021 9:37 PM MANAGER ED) Beta-Hydroxybut yrate 0.4 <=0.5 mmol/L [facility] Blood 05/18/2021 9:37 PM MANAGER ED 05/18/2021 10:00 PM MANAGER ED Elena Kelly NP LAB BLOOD ORDERABLES Final Result Performing Organization Address [facility] de Phone Number [facility] [place] [address] [address] [facility] [address] [place], [place] [id number] * Lactate (05/18/2021 9:37 PM MANAGER ED) Lactate 0.9 0.7 - 2.0 mmol/L [facility] Blood 05/18/2021 9:37 PM MANAGER ED 05/18/2021 10:00 PM MANAGER ED Elena Kelly NP LAB BLOOD ORDERABLES Final Result Performing Organization Address [facility] Co de Phone Number [facility] [address] [facility] [address] [place], [place] [phone] * (ABNORMAL) POCT glucose (05/18/2021 8:00 PM MANAGER ED) Glucose, POC 200(H) 70 - 199 mg/dL [facility] Blood 05/18/2021 8:00 PM MANAGER ED 05/18/2021 8:00 PM MANAGER ED us Rhina Granados MD LAB POCT ORDERABLES - DEVICE Final Result Performing Organization Address [facility] Phone Number [facility] [address] Department [place] [address] * (ABNORMAL) Blood gas, arterial (05/18/2021 7:53 PM MANAGER ED) pH, Art 7.45 7.35 - 7.45 [facility] [...] % [facility] Blood 05/18/2021 7:53 PM MANAGER ED 05/18/2021 8:24 PM MANAGER ED us Elena Kelly NP LAB BLOOD ORDERABLES Final Result Performing Organization Address [facility] Phone Number [facility] [address] Department [place] [address] * Critical Care (05/18/2021 7:00 PM MANAGER ED) Narrative Jose Conti MD - 05/18/2021 7:00 PM MANAGER ED Elena Kelly NP ? 05/19/2021 ??6:16 AM [...] plan with the ICU team and other medical/aws consultant staff, making frequent assessments and decisions [...] Final Result * eGFR (05/18/2021 5:30 PM MANAGER ED) [facility] eGFR 40 mL/min/1.7 3 m2 [facility] [...] last reviewed 2020 Blood 05/18/2021 5:30 PM MANAGER ED 05/18/2021 5:38 PM MANAGER ED us Rhina Granados MD LAB BLOOD ORDERABLES Final R esult [facility] [address] Department [place] [address] * eGFR (05/18/2021 5:30 PM MANAGER ED) eGFR 39 mL/min/1.7 3 m2 [facility] Comment: Interpretive [...] last reviewed 2020 Blood 05/18/2021 5:30 PM MANAGER ED 05/18/2021 6:04 PM MANAGER ED Rhina Granados MD LAB BLOOD ORDERABLES Final R esult Performing Organization Address City/[facility] Co de Phone Number [facility] [address] [place] [address] * TSH reflex to free T4 (05/18/2021 5:30 PM MANAGER ED) TSH 1.46 0.30 - 4.20 mcIUnit/mL [facility] Blood 05/18/2021 5:30 PM MANAGER ED 05/18/2021 5:38 PM MANAGER ED Caleb MOODY LAB BLOOD ORDERABLES Final Result Performing Organization Address [facility] Co de Phone Number [facility] [address] [place] [address] * Magnesium (05/18/2021 5:30 PM MANAGER ED) Magnesium 2.5 1.4 - 2.5 mg/dL [facility] Blood 05/18/2021 5:30 PM MANAGER ED 05/18/2021 5:38 PM MANAGER ED Rhina Granados MD LAB BLOOD ORDERABLES Final R esult Performing Organization Address [facility] Co de Phone Number [facility] [address] [place] [address] * (ABNORMAL) Basic metabolic panel (05/18/2021 5:30 PM MANAGER ED) Sodium 133(L) 135 - 145 mmol/L [facility] Potassium, pl 4.4 3.3 - 4.9 mmol/L [facility] Chloride 95(L) 97 - 110 mmol/L [facility] CO2 22 22 - 32 mmol/L [facility] Anion gap 16(H) 2 - 15 mmol/L [facility] BUN 51(H) 8 - 25 mg/dL [facility] Creatinine 1.85(H) 0.80 - 1.30 mg/dL [facility] [...] mg/dL [facility] Blood 05/18/2021 5:30 PM MANAGER ED 05/18/2021 5:38 PM MANAGER ED us Rhina Granados MD LAB BLOOD ORDERABLES Final R esult [facility] [address] Department [place] [address] * (ABNORMAL) Basic metabolic panel (05/18/2021 5:30 PM MANAGER ED) Sodium 132(L) 135 - 145 mmol/L [facility] [...] CH Glucose 143 70 - 199 mg/dL [facility] Comment: Interpretive Data Fasting glucose [...] 2017. Calcium 8.3(L) 8.5 - 10.3 mg/dL [facility] Blood 05/18/2021 5:30 PM MANAGER ED 05/18/2021 5:38 PM MANAGER ED Rhina Granados MD LAB BLOOD ORDERABLES Final R esult Performing Organization Address [facility] Co de Phone Number [facility] [address] [place] [address] * POCT glucose (05/18/2021 5:22 PM MANAGER ED) Glucose, POC 141 70 - 199 mg/dL [facility] Blood 05/18/2021 5:22 PM MANAGER ED 05/18/2021 5:22 PM MANAGER ED Rhina Granados MD LAB POCT ORDERABLES - DEVICE Final Result Performing Organization Address [facility] de Phone Number [facility] [address] [place] [address] * (ABNORMAL) Cortisol (05/18/2021 2:32 PM MANAGER ED) Cortisol >63.0(H) 4.8 - 19.5 mcg/dl [facility] Comment: Interpretive Data Normal Range: ??4.8 - 19.5 mcg/dL; ??Evening: ??Half of morning value. ?? This analyte undergoes marked diurnal variation. ??Ranges indicated apply to morning specimens. ?? Current interpretive data was last revised 2018. Blood 05/18/2021 2:32 PM MANAGER ED 05/18/2021 2:32 PM MANAGER ED Narrative [facility] - 05/18/2021 3:07 PM MANAGER ED Second draw 30 minutes after administration of cosyntropin. Caleb MOODY LAB BLOOD ORDERABLES Final Result Performing Organization Address [facility] Co de Phone Number [facility] [address] [place] [address] * (ABNORMAL) Cortisol (05/18/2021 1:51 PM MANAGER ED) Cortisol 53.1(H) 4.8 - 19.5 mcg/dl [facility] Comment: Interpretive Data Normal Range: ??4.8 - 19.5 mcg/dL; ??Evening: ??Half of morning value. ?? This analyte undergoes marked diurnal variation. ??Ranges indicated apply to morning specimens. ?? Current interpretive data was last revised 2018. Blood 05/18/2021 1:51 PM MANAGER ED 05/18/2021 1:54 PM MANAGER ED Narrative [facility] - 05/18/2021 2:32 PM MANAGER ED Third draw 60 minutes after administration of cosyntropin. Caleb MOODY LAB BLOOD ORDERABLES Final Result Performing Organization Address [facility] Co de Phone Number [facility] [address] [facility] [place] [address] * POCT glucose (05/18/2021 1:21 PM MANAGER ED) Glucose, POC 197 70 - 199 mg/dL [facility] Blood 05/18/2021 1:21 PM MANAGER ED 05/18/2021 1:21 PM MANAGER ED Rhina Granados MD LAB POCT ORDERABLES - DEVICE Final Result Performing Organization Address [facility]/ZIP Co de Phone Number [facility] [address] Department [place] [address] * eGFR (05/18/2021 12:36 PM MANAGER ED) eGFR 42 mL/min/1.7 3 m2 [facility] Comment: Interpretive [...] reviewed 2020 Blood 05/18/2021 12:3 6 PM MANAGER ED 05/18/2021 12:50 PM MANAGER ED us Rhina Granados MD LAB BLOOD ORDERABLES Final R esult [facility] [address] Department [place] [address] * (ABNORMAL) Cortisol (05/18/2021 12:36 PM MANAGER ED) Cortisol 25.5(H) 4.8 - 19.5 mcg/dl [facility] Comment: Interpretive Data Normal Range: ??4.8 - 19.5 mcg/dL; ??Evening: ??Half of morning value. ?? This analyte undergoes marked diurnal variation. ??Ranges indicated apply to morning specimens. ?? Current interpretive data was last revised 2018. Blood 05/18/2021 12:3 6 PM MANAGER ED 05/18/2021 12:43 PM MANAGER ED Narrative [facility] - 05/18/2021 1:12 PM MANAGER ED First draw prior to administration of cosyntropin. Caleb MOODY LAB BLOOD ORDERABLES Final Result [facility] [address] Department [place] [address] * (ABNORMAL) Basic metabolic panel (05/18/2021 12:36 PM MANAGER ED) Sodium 130(L) 135 - 145 mmol/L [facility] Potassium, pl 3.7 3.3 - 4.9 mmol/L [facility] Chloride 93(L) 97 - 110 mmol/L [facility] [...] 8.5 - 10.3 mg/dL [facility] Blood 05/18/2021 12:3 6 PM MANAGER ED 05/18/2021 12:43 PM MANAGER ED us Rhina Granados MD LAB BLOOD ORDERABLES Final R esult Performing Organization Address City/[facility]/ZIP Co de Phone Number [facility] [address] [place] [address] * (ABNORMAL) POCT glucose (05/18/2021 12:15 PM MANAGER ED) Glucose, POC 230(H) 70 - 199 mg/dL [facility] Blood 05/18/2021 12:1 5 PM MANAGER ED 05/18/2021 12:15 PM MANAGER ED Rhina Granados MD LAB POCT ORDERABLES - DEVICE Final Result Performing Organization Address [facility] de Phone Number [facility] [address] Department [place] [address] * NM Pulmonary Perfusion Imaging (05/18/2021 11:54 AM MANAGER ED) Anatomical Region Laterality Modality Body N/A Nuclear Medicine 05/18/2021 1:39 PM MANAGER ED Impressions 05/18/2021 1:39 PM MANAGER ED Findings described above are consistent with low probability of pulmonary embolus. ??The patient has mild vascular congestion. Electronically signed by: Elvira Blackman M.D. Narrative 05/18/2021 1:39 PM MANAGER ED EXAMINATION: NM PULMONARY PERFUSION IMAGING HISTORY: The [...] * (ABNORMAL) POCT glucose (05/18/2021 11:06 AM MANAGER ED) Glucose, POC 209(H) 70 - 199 mg/dL [facility] Blood 05/18/2021 11:0 6 AM MANAGER ED 05/18/2021 11:06 AM MANAGER ED us Rhina Granados MD LAB POCT ORDERABLES - DEVICE Final Result [facility] [address] [facility] Department [place] [address] * Critical Care (05/18/2021 10:32 AM MANAGER ED) Narrative Alexandru Porter MD - 05/18/2021 10:32 AM MANAGER ED Caleb Toth PA ? 05/18/2021 ??5:43 PM [...] plan with the ICU team and other medical/aws consultant staff, making frequent assessments and decisions [...] from bedside monitors, laboratory results, and imaging Caleb MOODY IN CLINIC/BEDSIDE ORD ERABLES Final Result * POCT glucose (05/18/2021 9:04 AM MANAGER ED) Glucose, POC 167 70 - 199 mg/dL [facility] 05/18/2021 9:04 AM MANAGER ED 05/18/2021 9:04 AM MANAGER ED Rhina Granados MD LAB POCT ORDERABLES - DEVICE Final Result Performing Organization Address [facility] Co de Phone Number [facility] [address] [facility] [place] [address] * POCT glucose (05/18/2021 8:01 AM MANAGER ED) Glucose, POC 147 70 - 199 mg/dL [facility] Blood 05/18/2021 8:01 AM MANAGER ED 05/18/2021 8:01 AM MANAGER ED Rhina Granados MD LAB POCT ORDERABLES - DEVICE Final Result Performing Organization Address [facility] Co de Phone Number [facility] [address] [place] [address] * POCT glucose (05/18/2021 6:56 AM MANAGER ED) Glucose, POC 131 70 - 199 mg/dL [facility] Blood 05/18/2021 6:56 AM MANAGER ED 05/18/2021 6:56 AM MANAGER ED us Rhina Granados MD LAB POCT ORDERABLES - DEVICE Final Result Performing Organization Address City/State/ZIP Co nh Phone Number [facility] [address] [facility] Department [place] [address] * eGFR (05/18/2021 6:19 AM MANAGER ED) eGFR 56 mL/min/1.7 3 m2 [facility] Comment: Interpretive Data [...] last reviewed 2020 Blood 05/18/2021 6:19 AM MANAGER ED 05/18/2021 6:19 AM MANAGER ED us Rhina Granados MD LAB BLOOD ORDERABLES Final R esult [facility] [address] Department [place] [address] * (ABNORMAL) Pro B-type natriuretic peptide (05/18/2021 6:19 AM MANAGER ED) NT-proBNP 2,488(H) <=300 pg/mL [facility] Comment: [...] Revised Date: 2018. Blood 05/18/2021 6:19 AM MANAGER ED 05/18/2021 10:39 AM MANAGER ED Rhina Granados MD LAB BLOOD ORDERABLES Final R esult [facility] [address] Department [place] [address] * (ABNORMAL) Basic metabolic panel (05/18/2021 6:19 AM MANAGER ED) Sodium 132(L) 135 - 145 mmol/L [facility] Potassium, pl 3.1(L) 3.3 - 4.9 mmol/L [facility] Comment:Hemolysis present. R esults may be affected. Chloride 95(L) 97 - 110 mmol/L [facility] CO2 21(L) 22 - 32 mmol/L [facility] Anion gap 16(H) 2 - 15 mmol/L [facility] BUN 44(H) 8 - 25 mg/dL [facility] Creatinine 1.38(H) 0.80 - 1.30 mg/dL [facility] [...] 8.1(L) 8.5 - 10.3 mg/dL [facility] Blood 05/18/2021 6:19 AM MANAGER ED 05/18/2021 6:19 AM MANAGER ED Rhina Granados MD LAB BLOOD ORDERABLES Final R esult Performing Organization Address City/[facility]/ZIP Co de Phone Number [facility] [address] Department [place] [address] * POCT glucose (05/18/2021 5:52 AM MANAGER ED) Glucose, POC 140 70 - 199 mg/dL [facility] Blood 05/18/2021 5:52 AM MANAGER ED 05/18/2021 5:52 AM MANAGER ED Rhina Granados MD LAB POCT ORDERABLES - DEVICE Final Result Performing Organization Address [facility] de Phone Number [facility] [address] Department [place] [address] * XR Chest 1 View (05/18/2021 5:48 AM MANAGER ED) Anatomical Region Laterality Modality Body, Chest N/A Computed Radiogr aphy 05/18/2021 3:15 PM MANAGER ED Impressions 05/18/2021 3:15 PM MANAGER ED Postoperative and chronic changes. Electronically signed by: Deandre Lomeli M.D. Narrative 05/18/2021 3:15 PM MANAGER ED EXAMINATION: XR CHEST 1 VIEW HISTORY: The patient is a 60-year-old male who presents with hypoxia. Comparison is made with the previous study dated 05/17/2021 TECHNIQUE: AP portable view of the chest. FINDINGS: Borderline Cardiomegaly with aortic atherosclerosis and postsurgical change. ??No significant vascular congestion. ??Patchy peripheral infiltrate or scar slightly more on the left.. ??The tip of a retracted Altha-Radha catheter is in the superior vena cava. [...] the left.. The tip of a retracted Altha-Radha catheter is in the superior vena cava. IMPRESSION: Postoperative and chronic changes. Electronically signed by: Deandre Lomeli M.D. Varsha Crowder [employer] IMG XR PROCEDURES Final Re sult * POCT glucose (05/18/2021 4:58 AM MANAGER ED) Glucose, POC 152 70 - 199 mg/dL [facility] Blood 05/18/2021 4:58 AM MANAGER ED 05/18/2021 4:58 AM MANAGER ED Rhina Granados MD LAB POCT ORDERABLES - DEVICE Final Result Performing Organization Address [facility] de Phone Number [facility] [address] [facility] [place] [address] * POCT glucose (05/18/2021 3:57 AM MANAGER ED) Glucose, POC 140 70 - 199 mg/dL [facility] Blood 05/18/2021 3:57 AM MANAGER ED 05/18/2021 3:57 AM MANAGER ED Rhina Granados MD LAB POCT ORDERABLES - DEVICE Final Result Performing Organization Address [facility] de Phone Number [facility] [address] [facility] [place] [address] * POCT glucose (05/18/2021 3:01 AM MANAGER ED) Glucose, POC 118 70 - 199 mg/dL [facility] Blood 05/18/2021 3:01 AM MANAGER ED 05/18/2021 3:01 AM MANAGER ED Rhina Granados MD LAB POCT ORDERABLES - DEVICE Final Result Performing Organization Address [facility] de Phone Number [facility] [address] Department [place] [address] * eGFR (05/18/2021 2:04 AM MANAGER ED) Pathologist [facility] eGFR 45 mL/min/1.7 3 m2 [facility] Comment: Interpretive Data [...] last reviewed 2020 Blood 05/18/2021 2:04 AM MANAGER ED 05/18/2021 2:18 AM MANAGER ED us Rhina Granados MD LAB BLOOD ORDERABLES Final R esult [facility] [address] Department [place] [address] * (ABNORMAL) CBC without differential (05/18/2021 2:04 AM MANAGER ED) Pathologist [facility] WBC 7.6 3.8 - 9.9 K/cumm [facility] Hgb 11.2(L) 13.0 - 17.5 g/dL [facility] Hct 33.0(L) 38.9 - 50.3 % [facility] Plt 278 150 - 400 K/cumm [facility] MPV 12.2 9.1 - 12.3 fL [facility] RBC 3.71(L) 4.30 - 5.80 M/cumm [facility] MCV 88.9 81.3 - 96.4 fL [facility] MCH 30.2 27.1 - 33.3 pg [facility] MCHC 33.9 32.3 - 35.7 g/dL [facility] RDW CV 13.5 11.1 - 14.9 % [facility] RDW SD 44.2 35.7 - 48.1 fL [facility] NRBC abs 0.00 0.00 - 0.01 K/cumm [facility] Blood 05/18/2021 2:04 AM MANAGER ED 05/18/2021 2:09 AM MANAGER ED Silviano Huddleston [employer] LAB BLOOD ORDERABLES Final Result Performing Organization Address [facility] Co de Phone Number [facility] [address] [facility] [place] [address] * (ABNORMAL) Magnesium (05/18/2021 2:04 AM MANAGER ED) Pathologist [facility] Magnesium 2.7(H) 1.4 - 2.5 mg/dL [facility] Blood 05/18/2021 2:04 AM MANAGER ED 05/18/2021 2:09 AM MANAGER ED Silviano Huddleston [employer]LE[employer] LAB BLOOD ORDERABLES Final Result Performing Organization Address [facility] Co de Phone Number [facility] [address] [facility] [place] [address] * (ABNORMAL) Phosphorus (05/18/2021 2:04 AM MANAGER ED) Phosphorus, pl 4.6(H) 2.3 - 4.5 mg/dL [facility] Blood 05/18/2021 2:04 AM MANAGER ED 05/18/2021 2:09 AM MANAGER ED us Silviano Huddleston [employer] LAB BLOOD ORDERABLES Final Result [facility] [address] [place], [place] [id number] * (ABNORMAL) Basic metabolic panel (05/18/2021 2:04 AM MANAGER ED) Sodium 132(L) 135 - 145 mmol/L [facility] [...] 2017. Calcium 8.6 8.5 - 10.3 mg/dL [facility] Blood 05/18/2021 2:04 AM MANAGER ED 05/18/2021 2:09 AM MANAGER ED Rhina Granadso MD LAB BLOOD ORDERABLES Final R esult Performing Organization Address City/[facility]/ZIP Co de Phone Number [facility] [address] [place], [place] [id number] * POCT glucose (05/18/2021 2:03 AM MANAGER ED) Glucose, POC 108 70 - 199 mg/dL [facility] Blood 05/18/2021 2:03 AM MANAGER ED 05/18/2021 2:03 AM MANAGER ED us Rhina Granados MD LAB POCT ORDERABLES - DEVICE Final Result Performing Organization Address [facility] Co de Phone Number [facility] [address] [facility] [place] [address] * POCT glucose (05/18/2021 1:00 AM MANAGER ED) Glucose, POC 111 70 - 199 mg/dL [facility] Blood 05/18/2021 1:00 AM MANAGER ED 05/18/2021 1:00 AM MANAGER ED us Rhina Granados MD LAB POCT ORDERABLES - DEVICE Final Result Performing Organization Address [facility] Phone Number [facility] [address] [place] [address] * POCT glucose (05/17/2021 11:55 PM MANAGER ED) Glucose, POC 106 70 - 199 mg/dL [facility] Blood 05/17/2021 11:5 5 PM MANAGER ED 05/17/2021 11:55 PM MANAGER ED us Rhina Granados MD LAB POCT ORDERABLES - DEVICE Final Result Performing Organization Address [facility] de Phone Number [facility] [place] [address] [place] [address] * POCT glucose (05/17/2021 10:50 PM MANAGER ED) Glucose, POC 82 70 - 199 mg/dL [facility] Blood 05/17/2021 10:5 0 PM MANAGER ED 05/17/2021 10:50 PM MANAGER ED us Rhina Granados MD LAB POCT ORDERABLES - DEVICE Final Result Performing Organization Address [facility] Co de Phone Number [facility] [address] Department [place] [address] * POCT glucose (05/17/2021 9:45 PM MANAGER ED) Pathologist [facility] Glucose, POC 193 70 - 199 mg/dL [facility] Blood 05/17/2021 9:45 PM MANAGER ED 05/17/2021 9:45 PM MANAGER ED Rhina Granados MD LAB POCT ORDERABLES - DEVICE Final Result [facility] [address] Department [place] [address] * eGFR (05/17/2021 9:35 PM MANAGER ED) eGFR 45 mL/min/1.7 3 m2 [facility] Comment: Interpretive Data Reference Interval [...] last reviewed 2020 Blood 05/17/2021 9:35 PM MANAGER ED 05/17/2021 9:35 PM MANAGER ED us Rhina Granados MD LAB BLOOD ORDERABLES Final R esult [facility] [address] [place] [address] * (ABNORMAL) Basic metabolic panel (05/17/2021 9:35 PM MANAGER ED) Sodium 130(L) 135 - 145 mmol/L [facility] Potassium, pl 3.6 3.3 - 4.9 mmol/L [facility] Chloride 94(L) 97 - 110 mmol/L [facility] CO2 21(L) 22 - 32 mmol/L [facility] Anion gap 15 2 - 15 mmol/L [facility] BUN 43(H) 8 - 25 mg/dL [facility] Creatinine 1.63(H) 0.80 - 1.30 mg/dL [facility] Glucose 140 70 - 199 mg/dL [facility] Comment: Interpretive Data Fasting glucose [...] 2017. Calcium 8.4(L) 8.5 - 10.3 mg/dL [facility] Blood 05/17/2021 9:35 PM MANAGER ED 05/17/2021 9:35 PM MANAGER ED us Rhina Granados MD LAB BLOOD ORDERABLES Final R esult Performing Organization Address City/[facility]/ZIP Co de Phone Number [facility] [address] Department [place] [address] * XR Chest 1 View (05/17/2021 9:34 PM MANAGER ED) Anatomical Region Laterality Modality Body, Chest N/A Computed Radiogr aphy 05/17/2021 10:3 1 PM MANAGER ED Impressions 05/17/2021 10:31 PM MANAGER ED Mild vascular congestion. Electronically signed by: Elvira Blackman M.D. Narrative 05/17/2021 10:31 PM MANAGER ED EXAMINATION: XR CHEST 1 VIEW HISTORY: The patient is a 60-year-old male who presents with hypoxia. Comparison is made with the previous study dated 05/09/2021. TECHNIQUE: AP portable view of the chest. FINDINGS: Borderline Cardiomegaly with aortic atherosclerosis. ??Mild degree of vascular congestion. ??No focal infiltrate. ??The tip of a retracted Altha-Radha catheter is in the superior vena cava. [...] focal infiltrate. The tip of a retracted Altha-Radha catheter is in the superior vena cava. IMPRESSION: Mild vascular congestion. Electronically signed by: Elvira Blackman M.D. us Elena Kelly [employer] XR PROCEDURES Final Res ult * POCT glucose (05/17/2021 8:42 PM MANAGER ED) Pathologist [facility] Glucose, POC 172 70 - 199 mg/dL [facility] Blood 05/17/2021 8:42 PM MANAGER ED 05/17/2021 8:42 PM MANAGER ED us Rhina Granados MD LAB POCT ORDERABLES - DEVICE Final Result [facility] [address] Department [place] [address] * POCT glucose (05/17/2021 7:38 PM MANAGER ED) Glucose, POC 195 70 - 199 mg/dL [facility] Blood 05/17/2021 7:38 PM MANAGER ED 05/17/2021 7:38 PM MANAGER ED us Rhina Granados MD LAB POCT ORDERABLES - DEVICE Final Result [facility] [address] [facility] Department [place] [address] * Critical Care (05/17/2021 7:00 PM MANAGER ED) Narrative Jose Conti MD - 05/17/2021 7:00 PM MANAGER ED Elena Kelly NP ? 05/18/2021 ??6:14 AM Critical Care Performed by: Elean Kelly NP Authorized by: Elena Kelly NP [...] plan with the ICU team and other medical/aws consultant staff, making frequent assessments and decisions [...] spent time documenting in the medical record Elena Kelly NP IN CLINIC/BEDSIDE ORDERABLE S Final Result * (ABNORMAL) POCT glucose (05/17/2021 6:51 PM MANAGER ED) Glucose, POC 216(H) 70 - 199 mg/dL [facility] Blood 05/17/2021 6:51 PM MANAGER ED 05/17/2021 6:51 PM MANAGER ED Rhina Granados MD LAB POCT ORDERABLES - DEVICE Final Result Performing Organization Address [facility] Co de Phone Number [facility] [address] [place] [address] * POCT glucose (05/17/2021 6:04 PM MANAGER ED) Glucose, POC 148 70 - 199 mg/dL [facility] Blood 05/17/2021 6:04 PM MANAGER ED 05/17/2021 6:04 PM MANAGER ED Rhina Granados MD LAB POCT ORDERABLES - DEVICE Final Result Performing Organization Address [facility] Co de Phone Number [facility] [address] [facility] [place] [address] * POCT glucose (05/17/2021 5:00 PM MANAGER ED) Glucose, POC 115 70 - 199 mg/dL [facility] Blood 05/17/2021 5:00 PM MANAGER ED 05/17/2021 5:00 PM MANAGER ED Rhina Granados MD LAB POCT ORDERABLES - DEVICE Final Result Performing Organization Address [facility]/ZIP Co de Phone Number [facility] [address] [place] [address] * POCT glucose (05/17/2021 3:54 PM MANAGER ED) Glucose, POC 134 70 - 199 mg/dL [facility] Blood 05/17/2021 3:54 PM MANAGER ED 05/17/2021 3:54 PM MANAGER ED us Rhina Granados MD LAB POCT ORDERABLES - DEVICE Final Result Performing Organization Address [facility] de Phone Number [facility] [address] [place] [address] * eGFR (05/17/2021 2:49 PM MANAGER ED) eGFR 45 mL/min/1.7 3 m2 [facility] Comment: Interpretive Data Reference Interval [...] last reviewed 2020 Blood 05/17/2021 2:49 PM MANAGER ED 05/17/2021 2:52 PM MANAGER ED Rhina Granados MD LAB BLOOD ORDERABLES Final R esult Performing Organization Address City/[facility]/ZIP Co de Phone Number [facility] [address] [place] [address] * (ABNORMAL) Magnesium (05/17/2021 2:49 PM MANAGER ED) Pathologist [facility] Magnesium 3.3(H) 1.4 - 2.5 mg/dL [facility] Blood 05/17/2021 2:49 PM MANAGER ED 05/17/2021 2:52 PM MANAGER ED Rhina Granados MD LAB BLOOD ORDERABLES Final R esult Performing Organization Address [facility] de Phone Number [facility] [address] [place] [address] * (ABNORMAL) Basic metabolic panel (05/17/2021 2:49 PM MANAGER ED) Sodium 130(L) 135 - 145 mmol/L [facility] Potassium, pl 3.5 3.3 - 4.9 mmol/L [facility] Chloride 92(L) 97 - 110 mmol/L [facility] CO2 21(L) 22 - 32 mmol/L [facility] Anion gap 17(H) 2 - 15 mmol/L [facility] BUN 36(H) 8 - 25 mg/dL [facility] Creatinine 1.65(H) 0.80 - 1.30 mg/dL [facility] Glucose 180 70 - 199 mg/dL [facility] Comment: Interpretive Data Fasting glucose [...] - 10.3 mg/dL [facility] Blood 05/17/2021 2:49 PM MANAGER ED 05/17/2021 2:52 PM MANAGER ED Rhina Granados MD LAB BLOOD ORDERABLES Final R esult Performing Organization Address City/[facility] Co de Phone Number [facility] [address] [place], [place] [id number] * POCT glucose (05/17/2021 2:47 PM MANAGER ED) Glucose, POC 176 70 - 199 mg/dL [facility] Blood 05/17/2021 2:47 PM MANAGER ED 05/17/2021 2:47 PM MANAGER ED Rhina Granados MD LAB POCT ORDERABLES - DEVICE Final Result Performing Organization Address [facility] de Phone Number [facility] [address] [address] * (ABNORMAL) POCT glucose (05/17/2021 1:32 PM MANAGER ED) Glucose, POC 245(H) 70 - 199 mg/dL [facility] Blood 05/17/2021 1:32 PM MANAGER ED 05/17/2021 1:32 PM MANAGER ED Rhina Granados MD LAB POCT ORDERABLES - DEVICE Final Result Performing Organization Address [facility] de Phone Number [facility] [address] [facility] [place] [address] * (ABNORMAL) POCT glucose (05/17/2021 12:27 PM MANAGER ED) Glucose, POC 299(H) 70 - 199 mg/dL [facility] Blood 05/17/2021 12:2 7 PM MANAGER ED 05/17/2021 12:27 PM MANAGER ED Rhina Granados MD LAB POCT ORDERABLES - DEVICE Final Result Performing Organization Address [facility] Co de Phone Number [facility] [address] [place] [address] * eGFR (05/17/2021 9:53 AM MANAGER ED) [facility] eGFR 63 mL/min/1.7 3 m2 [facility] Comment: Interpretive Data Reference Interval [...] last reviewed 2020 Blood 05/17/2021 9:53 AM MANAGER ED 05/17/2021 10:22 AM MANAGER ED Rhina Granados MD LAB BLOOD ORDERABLES Final R esult Performing Organization Address [facility] Co de Phone Number [facility] [address] [place] [address] * (ABNORMAL) Beta-hydroxybutyrate (05/17/2021 9:53 AM MANAGER ED) Pathologist [facility] Beta-Hydroxybut yrate 1.4(H) <=0.5 mmol/L [facility] Blood 05/17/2021 9:53 AM MANAGER ED 05/17/2021 11:27 PM MANAGER ED Caleb MOODY LAB BLOOD ORDERABLES Final Result [facility] [address] [place] [address] * Lactate (05/17/2021 9:53 AM MANAGER ED) [facility] Lactate 1.7 0.7 - 2.0 mmol/L [facility] Blood 05/17/2021 9:53 AM MANAGER ED 05/17/2021 10:05 AM MANAGER ED Caleb MOODY LAB BLOOD ORDERABLES Final Result Performing Organization Address City/[facility]/ZIP Co de Phone Number [facility] [address] [place] [address] * (ABNORMAL) Basic metabolic panel (05/17/2021 9:53 AM MANAGER ED) Pathologist [facility] Sodium 129(L) 135 - 145 mmol/L [facility] Potassium, pl 3.6 3.3 - 4.9 mmol/L [facility] Chloride 89(L) 97 - 110 mmol/L [facility] CO2 21(L) 22 - 32 mmol/L [facility] Anion gap 19(H) 2 - 15 mmol/L [facility] BUN 32(H) 8 - 25 mg/dL [facility] Creatinine 1.24 0.80 - 1.30 mg/dL [facility] Glucose 343(H) 70 - 199 mg/dL [facility] Comment: Interpretive Data Fasting glucose [...] 2017. Calcium 8.4(L) 8.5 - 10.3 mg/dL [facility] Blood 05/17/2021 9:53 AM MANAGER ED 05/17/2021 10:05 AM MANAGER ED Rhina Granados MD LAB BLOOD ORDERABLES Final R esult Performing Organization Address City/[facility]/ZIP Co de Phone Number [facility] [address] [place] [address] * (ABNORMAL) POCT glucose (05/17/2021 9:36 AM MANAGER ED) [facility] Signature Glucose, POC 268(H) 70 - 199 mg/dL [facility] Blood 05/17/2021 9:36 AM MANAGER ED 05/17/2021 9:36 AM MANAGER ED Rhina Granados MD LAB POCT ORDERABLES - DEVICE Final Result Performing Organization Address City/[facility] Co de Phone Number [facility] [address] [place], [place] [phone] * Critical Care (05/17/2021 8:04 AM MANAGER ED) Narrative Alexandru Porter MD - 05/17/2021 8:04 AM MANAGER ED Caleb Toth PA ? 05/17/2021 ??4:48 PM [...] plan with the patient's team and other medical/aws consultant staff. This time was in addition to and separate from care provided by other practitioners on this day of service. ?? us Caleb MOODY IN CLINIC/BEDSIDE ORD ERABLES Final Result * XR Chest 1 Vw Portable (05/17/2021 7:41 AM MANAGER ED) Anatomical Region Laterality Modality Body, Chest N/A Computed Radiogr aphy 05/17/2021 1:45 PM MANAGER ED Impressions 05/17/2021 1:45 PM MANAGER ED No change from previous. Electronically signed by: Humphrey Mojica M.D. Narrative 05/17/2021 1:45 PM MANAGER ED EXAM: ?? XR CHEST 1 VIEW DATE: [...] * Oxyhemoglobin, central venous (05/17/2021 4:50 AM MANAGER ED) Oxyhemoglobin, CV 83.8 % [facility] Comment: Interpretive Data No reference range established. Current interpretive data was last revised 2019. Blood 05/17/2021 4:50 AM MANAGER ED 05/17/2021 5:03 AM MANAGER ED us Jose Conti MD LAB BLOOD ORDERABLES Final Resul t [facility] [address] [facility] Department [place] [address] * TRANSTHORACIC ECHO (TTE) COMPLETE W DOPPLER/CF WO CONTRAST (05/17/2021 3:55 AM MANAGER ED) Anatomical Region Laterality Modality Ultrasound 05/17/2021 3:34 PM MANAGER ED Narrative 05/18/2021 8:55 [place] [address] Echocardiogram Report Patient Name: DEEPAK ALVARADO W : 1960 Study Date: 05/17/2021 3:34:31 PM Gender: M Tech: NA Location: [id number] Ref Provider: RHINA GRANADOSHeight(Cm): 175 BSA: 1.96 [...] Brito DO, FACC, FASE, FASNC 2021-05-18 08:55:09 MANAGER ED CC: CC: CC: Procedure Note Rylee Brito DO - 05/18/2021 [place] [address] Echocardiogram Report Patient Name: DEEPAK ALVARADOWPatient ID: [id number] : [id number] Date: 05/17/2021 3:34:31 PM Gender: MAccession #: [id number] Tech: NALocation: [id number] Ref Provider: RHINA GRANADOSHeight(Cm): 175 BSA: 1.96Weight(Kg): [...] Brito DO, FACJustyna, FAISAL ESPARZA 2021-05-18 08:55:09 MANAGER ED CC: CC: CC: us Rhina Granados MD CV ECHO PROCEDURES Final Res ult * Oxyhemoglobin, central venous (05/17/2021 3:43 AM MANAGER ED) Oxyhemoglobin, CV 57.0 % [facility] Comment: Interpretive Data No reference range established. Current interpretive data was last revised 2019. Blood 05/17/2021 3:43 AM MANAGER ED 05/17/2021 3:51 AM MANAGER ED us Rhina Granados MD LAB BLOOD ORDERABLES Final R esult Performing Organization Address City/[facility]/ZIP Co de Phone Number [facility] [address] [place] [address] * eGFR (05/17/2021 3:33 AM MANAGER ED) eGFR 76 mL/min/1.7 3 m2 [facility] Comment: Interpretive Data Reference Interval [...] last reviewed 2020 Blood 05/17/2021 3:33 AM MANAGER ED 05/17/2021 3:52 AM MANAGER ED us Jose Conti MD LAB BLOOD ORDERABLES Final Resul t Performing Organization Address [facility] Co de Phone Number [facility] [address] Department [place] [address] * (ABNORMAL) Differential, auto (05/17/2021 3:33 AM MANAGER ED) Neutrophil abs 6.8(H) 1.7 - 6.5 K/cumm [facility] Imm gran abs 0.1 0.0 - 0.1 K/cumm [facility] Lymphocyte abs 1.0 0.8 - 3.3 K/cumm [facility] Monocyte abs 0.8 0.2 - 0.8 K/cumm [facility] Eosinophil abs 0.0 0.0 - 0.5 K/cumm [facility] Basophil abs 0.0 0.0 - 0.1 K/cumm [facility] Neutrophil pct 78.4 % [facility] Comment: Interpretive Data Percent cell count reference ranges are not reported, since discordance with absolute values may lead to misinterpretation of CBC data. Current Interpretive Data was last revised on 2017. Imm gran pct 0.6 % [facility] Comment: Interpretive Data Percent cell count reference ranges are not reported, since discordance with absolute values may lead to misinterpretation of CBC data. Current Interpretive Data was last revised on 2017. Lymphocyte pct 11.7 % [facility] Comment: Interpretive Data Percent cell count reference ranges are not reported, since discordance with absolute values may lead to misinterpretation of CBC data. Current Interpretive Data was last revised on 2017. Monocyte pct 9.0 % [facility] Comment: Interpretive Data Percent cell count reference ranges are not reported, since discordance with absolute values may lead to misinterpretation of CBC data. Current Interpretive Data was last revised on 2017. Eosinophil pct 0.1 % [facility] Comment: Interpretive Data Percent cell count reference ranges are not reported, since discordance with absolute values may lead to misinterpretation of CBC data. Current Interpretive Data was last revised on 2017. Basophil pct 0.2 % [facility] Comment: Interpretive Data Percent cell count reference ranges are not reported, since discordance with absolute values may lead to misinterpretation of CBC data. Current Interpretive Data was last revised on 2017. Blood 05/17/2021 3:33 AM MANAGER ED 05/17/2021 3:52 AM MANAGER ED Jose Conti MD LAB BLOOD ORDERABLES Final Resul t [facility] [address] [place] [address] * (ABNORMAL) CBC with auto differential (05/17/2021 3:33 AM MANAGER ED) WBC 8.7 3.8 - 9.9 K/cumm [facility] Hgb 11.3(L) 13.0 - 17.5 g/dL [facility] Hct 33.8(L) 38.9 - 50.3 % [facility] Plt 267 150 - 400 K/cumm [facility] MPV 12.1 9.1 - 12.3 fL [facility] RBC 3.76(L) 4.30 - 5.80 M/cumm [facility] MCV 89.9 81.3 - 96.4 fL [facility] MCH 30.1 27.1 - 33.3 pg [facility] MCHC 33.4 32.3 - 35.7 g/dL [facility] CH RDW CV 13.3 11.1 - 14.9 % [facility] CH RDW SD 43.8 35.7 - 48.1 fL [facility] NRBC abs 0.00 0.00 - 0.01 K/cumm [facility] Blood 05/17/2021 3:33 AM MANAGER ED 05/17/2021 3:52 AM MANAGER ED us Jose Conti MD LAB BLOOD ORDERABLES Final Resul t Performing Organization Address [facility] Co de Phone Number [facility] [address] [place] [address] * Phosphorus (05/17/2021 3:33 AM MANAGER ED) Phosphorus, pl 4.4 2.3 - 4.5 mg/dL [facility] Blood 05/17/2021 3:33 AM MANAGER ED 05/17/2021 3:52 AM MANAGER ED Jose Conti MD LAB BLOOD ORDERABLES Final Resul t Performing Organization Address [facility] Co de Phone Number [facility] [address] [place] [address] * Magnesium (05/17/2021 3:33 AM MANAGER ED) Magnesium 1.7 1.4 - 2.5 mg/dL [facility] Blood 05/17/2021 3:33 AM MANAGER ED 05/17/2021 3:52 AM MANAGER ED Jose Conti MD LAB BLOOD ORDERABLES Final Resul t [facility] [address] [facility] [place] [address] * (ABNORMAL) Calcium, ionized (05/17/2021 3:33 AM MANAGER ED) Ca, ionized, bld 4.42(L) 4.60 - 5.20 mg/dL [facility] Ca, ionized, bld, calc 4.44(L) 4.60 - 5.20 mg/dL [facility] Blood 05/17/2021 3:33 AM MANAGER ED 05/17/2021 3:51 AM MANAGER ED Jose Conti MD LAB BLOOD ORDERABLES Final Resul t Performing Organization Address City/[facility] Co de Phone Number [facility] [address] [place] [address] * (ABNORMAL) Comprehensive metabolic panel (05/17/2021 3:33 AM MANAGER ED) Sodium 133(L) 135 - 145 mmol/L [facility] [...] Glucose 157 70 - 199 mg/dL [facility] Comment: Interpretive [...] CH Albumin 3.5 3.5 - 5.0 g/dL [facility] Alk phos 94 40 - 130 Units/L [facility] ALT 20 7 - 55 Units/L [facility] AST 64(H) 10 - 50 Units/L [facility] Blood 05/17/2021 3:33 AM MANAGER ED 05/17/2021 3:52 AM MANAGER ED Jose Conti MD LAB BLOOD ORDERABLES Final Resul t [facility] [address] Department [place] [address] * Critical Care (05/17/2021 3:31 AM MANAGER ED) Narrative Jose Conti MD - 05/17/2021 3:31 AM MANAGER ED Jose Conti MD ? 05/17/2021 ??3:33 AM Critical Care Performed by: Jose Conti MD Authorized by: Jose Cotni MD CRITICAL CARE: ??Team: ??CHNE ??Shift: ??PM [...] plan with the ICU team and other medical/aws consultant staff, making frequent assessments and decisions [...] Chest 1 Vw Portable (05/17/2021 2:34 AM MANAGER ED) Anatomical Region Laterality Modality Body, Chest N/A Computed Radiogr aphy 05/17/2021 11:3 5 AM MANAGER ED Impressions 05/17/2021 11:35 AM MANAGER ED 1. ??Status post median sternotomy. 2. ??Right jugular venous catheter in place. 3. ??Pulmonary vascular congestion. 4. ??Mild infiltrate in the left lower lobe and possible small left pleural effusion. Electronically signed by: Humphrey Mojica M.D. Narrative 05/17/2021 11:35 AM MANAGER ED EXAM: ?? XR CHEST 1 VIEW DATE: [...] ult * POCT glucose (05/17/2021 2:21 AM MANAGER ED) Pathologist [facility] Glucose, POC 139 70 - 199 mg/dL [facility] Blood 05/17/2021 2:21 AM MANAGER ED 05/17/2021 2:21 AM MANAGER ED us Rhina Granados MD LAB POCT ORDERABLES - DEVICE Final Result [facility] [address] Department [place] [address] * (ABNORMAL) Blood gas, arterial (05/17/2021 2:20 AM MANAGER ED) pH, Art 7.50(H) 7.35 - 7.45 [facility] [...] % [facility] Blood 05/17/2021 2:20 AM MANAGER ED 05/17/2021 2:25 AM MANAGER ED us Laly Lopes MD LAB BLOOD ORDERABLES Final Result Performing Organization Address [facility] Co de Phone Number [facility] [address] [facility] [place] [address] * POCT glucose (05/17/2021 2:01 AM MANAGER ED) Glucose, POC 135 70 - 199 mg/dL [facility] Blood 05/17/2021 2:01 AM MANAGER ED 05/17/2021 2:01 AM MANAGER ED Rhina Granados MD LAB POCT ORDERABLES - DEVICE Final Result Performing Organization Address [facility] Co de Phone Number [facility] [address] [facility] [place] [address] * POCT glucose (05/16/2021 10:45 PM MANAGER ED) Glucose, POC 131 70 - 199 mg/dL [facility] Blood 05/16/2021 10:4 5 PM MANAGER ED 05/16/2021 10:45 PM MANAGER ED Rhina Granados MD LAB POCT ORDERABLES - DEVICE Final Result Performing Organization Address [facility] Co de Phone Number [facility] [address] [facility] [place] [address] * POCT glucose (05/16/2021 8:47 PM MANAGER ED) Glucose, POC 142 70 - 199 mg/dL [facility] Blood 05/16/2021 8:47 PM MANAGER ED 05/16/2021 8:47 PM MANAGER ED Rhina Granados MD LAB POCT ORDERABLES - DEVICE Final Result Performing Organization Address [facility] Co de Phone Number [facility] DON [address] [facility] [place] [address] * POCT glucose (05/16/2021 6:10 PM MANAGER ED) Glucose, POC 104 70 - 199 mg/dL [facility] Blood 05/16/2021 6:10 PM MANAGER ED 05/16/2021 6:10 PM MANAGER ED Rhina Granados MD LAB POCT ORDERABLES - DEVICE Final Result Performing Organization Address [facility] de Phone Number [facility] DON [address] [facility] [place] [address] * POCT glucose (05/16/2021 12:54 PM MANAGER ED) Glucose, POC 114 70 - 199 mg/dL [facility] Blood 05/16/2021 12:5 4 PM MANAGER ED 05/16/2021 12:54 PM MANAGER ED Rhina Granados MD LAB POCT ORDERABLES - DEVICE Final Result Performing Organization Address [facility] de Phone Number [facility] DON [address] [facility] [address] [place], [place] [id number] * POCT glucose (05/16/2021 7:51 AM MANAGER ED) Glucose, POC 135 70 - 199 mg/dL [facility] Blood 05/16/2021 7:51 AM MANAGER ED 05/16/2021 7:51 AM MANAGER ED us Rhina Granados MD LAB POCT ORDERABLES - DEVICE Final Result Performing Organization Address [facility] Co de Phone Number [facility] DON [address] [place] [address] * eGFR (05/16/2021 5:42 AM MANAGER ED) eGFR 105 mL/min/1.7 3 m2 [facility] Comment: Interpretive Data Reference Interval Normal ?>/= [...] last reviewed 2020 Blood 05/16/2021 5:42 AM MANAGER ED 05/16/2021 5:46 AM MANAGER ED us Rhina Granados MD LAB BLOOD ORDERABLES Final R esult Performing Organization Address [facility]/ZIP Co de Phone Number [facility] DON [address] [place], [place] [id number] * (ABNORMAL) CBC without differential (05/16/2021 5:42 AM MANAGER ED) WBC 6.2 3.8 - 9.9 K/cumm [facility] [facility] Hgb 9.9(L) 13.0 - 17.5 g/dL [facility] Hct 30.8(L) 38.9 - 50.3 % [facility] Plt 241 150 - 400 K/cumm [facility] MPV 11.7 9.1 - 12.3 fL [facility] RBC 3.34(L) 4.30 - 5.80 M/cumm [facility] MCV 92.2 81.3 - 96.4 fL [facility] MCH 29.6 27.1 - 33.3 pg [facility] MCHC 32.1(L) 32.3 - 35.7 g/dL [facility] RDW CV 13.4 11.1 - 14.9 % [facility] RDW SD 45.6 35.7 - 48.1 fL [facility] NRBC abs 0.00 0.00 - 0.01 K/cumm [facility] Blood 05/16/2021 5:42 AM MANAGER ED 05/16/2021 5:46 AM MANAGER ED Silviano Huddleston [employer] LAB BLOOD ORDERABLES Final Result Performing Organization Address City/[facility] Co de Phone Number [facility] DON [address] [facility] [place] [address] * Magnesium (05/16/2021 5:42 AM MANAGER ED) Pathologist [facility] Magnesium 2.0 1.4 - 2.5 mg/dL [facility] Blood 05/16/2021 5:42 AM MANAGER ED 05/16/2021 5:46 AM MANAGER ED Silviano Huddleston [employer] LAB BLOOD ORDERABLES Final Result Performing Organization Address City/[facility]/ZIP Co de Phone Number HENRIK DON [address] [address] [facility] [place] [address] * Phosphorus (05/16/2021 5:42 AM MANAGER ED) Pathologist [facility] Phosphorus, pl 3.2 2.3 - 4.5 mg/dL [facility] Blood 05/16/2021 5:42 AM MANAGER ED 05/16/2021 5:46 AM MANAGER ED us Silviano Huddleston NP LAB BLOOD ORDERABLES Final Result Performing Organization Address City/[facility]/ZIP Co de Phone Number HENRIK DON [address] Department [place] [address] * (ABNORMAL) Basic metabolic panel (05/16/2021 5:42 AM MANAGER ED) Pathologist [facility] Sodium 132(L) 135 - 145 mmol/L [facility] Potassium, pl 3.8 3.3 - 4.9 mmol/L [facility] Chloride 101 97 - 110 mmol/L [facility] CO2 20(L) 22 - 32 mmol/L [facility] Anion gap 11 2 - 15 mmol/L [facility] BUN 22 8 - 25 mg/dL [facility] Creatinine 0.68(L) 0.80 - 1.30 mg/dL [facility] Glucose 96 70 - 199 mg/dL [facility] Comment: Interpretive Data Fasting glucose >/= [...] 2017. Calcium 8.1(L) 8.5 - 10.3 mg/dL [facility] Blood 05/16/2021 5:42 AM MANAGER ED 05/16/2021 5:46 AM MANAGER ED us Rhina Granados MD LAB BLOOD ORDERABLES Final R esult Performing Organization Address [facility]/ZIP Co de Phone Number HENRIK DON [address] [address] [place] [address] * XR Chest 1 View (05/16/2021 5:29 AM MANAGER ED) Anatomical Region Laterality Modality Body, Chest N/A Computed Radiogr aphy 05/16/2021 9:16 AM MANAGER ED Impressions 05/16/2021 9:16 AM MANAGER ED No change from previous. Electronically signed by: Humphrey Mojica M.D. Narrative 05/16/2021 9:16 AM MANAGER ED EXAM: ?? XR CHEST 1 VIEW DATE: [...] signed by: Humphrey Mojica M.D. us Varsha Crowder [employer]LE[employer] IMG XR PROCEDURES Final Re sult * POCT glucose (05/16/2021 2:43 AM MANAGER ED) Glucose, POC 95 70 - 199 mg/dL [facility] Blood 05/16/2021 2:43 AM MANAGER ED 05/16/2021 2:43 AM MANAGER ED us Rhina Granados MD LAB POCT ORDERABLES - DEVICE Final Result [facility] DON [address] Department [place] [address] * POCT glucose (05/15/2021 8:42 PM MANAGER ED) Glucose, POC 177 70 - 199 mg/dL [facility] Blood 05/15/2021 8:42 PM MANAGER ED 05/15/2021 8:42 PM MANAGER ED Rhina Granados MD LAB POCT ORDERABLES - DEVICE Final Result [facility] DON [address] [address] [facility] [place] [address] * (ABNORMAL) POCT glucose (05/15/2021 5:05 PM MANAGER ED) Glucose, POC 217(H) 70 - 199 mg/dL [facility] Blood 05/15/2021 5:05 PM MANAGER ED 05/15/2021 5:05 PM MANAGER ED Rhina Granados MD LAB POCT ORDERABLES - DEVICE Final Result Performing Organization Address City/[facility]/ZIP Co de Phone Number HENRIK DON [address] [address] [facility] [place] [address] * POCT glucose (05/15/2021 12:06 PM MANAGER ED) Glucose, POC 189 70 - 199 mg/dL [facility] Blood 05/15/2021 12:0 6 PM MANAGER ED 05/15/2021 12:06 PM MANAGER ED Rhina Granados MD LAB POCT ORDERABLES - DEVICE Final Result Performing Organization Address City/[facility]/ZIP Co de Phone Number H[facility]RIK DON [address] [address] [facility] [place] [address] * POCT glucose (05/15/2021 7:30 AM MANAGER ED) Glucose, POC 127 70 - 199 mg/dL [facility] Blood 05/15/2021 7:30 AM MANAGER ED 05/15/2021 7:30 AM MANAGER ED us Rhina Granados MD LAB POCT ORDERABLES - DEVICE Final Result [facility] DON [address] Department [place] [address] * XR Chest 1 View (05/15/2021 6:02 AM MANAGER ED) Anatomical Region Laterality Modality Body, Chest N/A Computed Radiogr aphy 05/15/2021 9:02 AM MANAGER ED Impressions 05/15/2021 9:02 AM MANAGER ED Borderline cardiomegaly with no failure. Electronically signed by: Elvira Blackman M.D. Narrative 05/15/2021 9:02 AM MANAGER ED EXAMINATION: XR CHEST 1 VIEW HISTORY: The patient is a 60-year-old male who has had prior cardiac surgery. Comparison made with the previous study dated 05/14/2021. TECHNIQUE: AP portable view of the chest. FINDINGS: Borderline cardiomegaly with aortic atherosclerosis. ??No failure. ??No active infiltrate. ??The distal tip of a retracted Altha-Radha catheter is in the proximal superior vena [...] infiltrate. The distal tip of a retracted Altha-Radha catheter is in the proximal superior vena cava. IMPRESSION: Borderline cardiomegaly with no failure. Electronically signed by: Elvira Blackman M.D. us Varsha Crowder [employer] IMG XR PROCEDURES Final Re sult * eGFR (05/15/2021 5:33 AM MANAGER ED) eGFR 103 mL/min/1.7 3 m2 [facility] DON [...] last reviewed 2020 Blood 05/15/2021 5:33 AM MANAGER ED 05/15/2021 5:33 AM MANAGER ED us Rhina Granados MD LAB BLOOD ORDERABLES Final R esult Performing Organization Address City/[facility] Co de Phone Number HENRIK [address] Department [address] [place], [place] [id number] * Magnesium (05/15/2021 5:33 AM MANAGER ED) Magnesium 1.7 1.4 - 2.5 mg/dL [facility] Blood 05/15/2021 5:33 AM MANAGER ED 05/15/2021 5:33 AM MANAGER ED us Silviano Huddleston NP LAB BLOOD ORDERABLES Final Result Performing Organization Address City/[facility] Co de Phone Number HENRIK [address] [address] Department [place] [address] * Phosphorus (05/15/2021 5:33 AM MANAGER ED) Phosphorus, pl 3.0 2.3 - 4.5 mg/dL [facility] Blood 05/15/2021 5:33 AM MANAGER ED 05/15/2021 5:33 AM MANAGER ED Silviano Huddleston NP LAB BLOOD ORDERABLES Final Result [facility] [address] Department [place] [address] * (ABNORMAL) Basic metabolic panel (05/15/2021 5:33 AM MANAGER ED) Sodium 131(L) 135 - 145 mmol/L [facility] Potassium, pl 3.8 3.3 - 4.9 mmol/L [facility] Chloride 98 97 - 110 mmol/L [facility] CO2 21(L) 22 - 32 mmol/L [facility] Anion gap 12 2 - 15 mmol/L [facility] BUN 22 8 - 25 mg/dL [facility] Creatinine 0.70(L) 0.80 - 1.30 mg/dL [facility] Glucose 117 70 - 199 mg/dL [facility] Comment: Interpretive Data Fasting glucose >/= [...] 8.3(L) 8.5 - 10.3 mg/dL [facility] Blood 05/15/2021 5:33 AM MANAGER ED 05/15/2021 5:33 AM MANAGER ED Rhina Granados MD LAB BLOOD ORDERABLES Final R esult Performing Organization Address [facility] Co de Phone Number HENRIK DON [address] [place] [address] * (ABNORMAL) CBC without differential (05/15/2021 5:32 AM MANAGER ED) WBC 9.4 3.8 - 9.9 K/cumm [facility] Hgb 10.7(L) 13.0 - 17.5 g/dL [facility] Hct 32.2(L) 38.9 - 50.3 % [facility] Plt 270 150 - 400 K/cumm [facility] MPV 11.8 9.1 - 12.3 fL [facility] RBC 3.52(L) 4.30 - 5.80 M/cumm [facility] MCV 91.5 81.3 - 96.4 fL [facility] MCH 30.4 27.1 - 33.3 pg [facility] MCHC 33.2 32.3 - 35.7 g/dL [facility] RDW CV 13.4 11.1 - 14.9 % [facility] RDW SD 45.4 35.7 - 48.1 fL [facility] NRBC abs 0.00 0.00 - 0.01 K/cumm [facility] Blood 05/15/2021 5:32 AM MANAGER ED 05/15/2021 5:32 AM MANAGER ED us Rhina Granados MD LAB BLOOD ORDERABLES Final R esult Performing Organization Address [facility] de Phone Number HENRIK DON [address] [place] [address] * POCT glucose (05/15/2021 2:40 AM MANAGER ED) Glucose, POC 102 70 - 199 mg/dL [facility] Blood 05/15/2021 2:40 AM MANAGER ED 05/15/2021 2:40 AM MANAGER ED Rhina Granados MD LAB POCT ORDERABLES - DEVICE Final Result Performing Organization Address City/[facility]/ZIP Co de Phone Number HENRIK DON [address] [address] [place] [address] * POCT glucose (05/14/2021 10:07 PM MANAGER ED) Glucose, POC 131 70 - 199 mg/dL [facility] Blood 05/14/2021 10:0 7 PM MANAGER ED 05/14/2021 10:07 PM MANAGER ED Rhina Granados MD LAB POCT ORDERABLES - DEVICE Final Result Performing Organization Address [facility] Co de Phone Number HENRIK [address] [address] [facility] [place] [address] * (ABNORMAL) POCT glucose (05/14/2021 5:12 PM MANAGER ED) Glucose, POC 219(H) 70 - 199 mg/dL [facility] Blood 05/14/2021 5:12 PM MANAGER ED 05/14/2021 5:12 PM MANAGER ED Rhina Granados MD LAB POCT ORDERABLES - DEVICE Final Result Performing Organization Address [facility] Co de Phone Number HENRIK [address] [address] [facility] [place] [address] * POCT glucose (05/14/2021 1:13 PM MANAGER ED) Glucose, POC 153 70 - 199 mg/dL [facility] Blood 05/14/2021 1:13 PM MANAGER ED 05/14/2021 1:13 PM MANAGER ED Rhina Granados MD LAB POCT ORDERABLES - DEVICE Final Result Performing Organization Address [facility] Co de Phone Number HENRIK DON [address] [address] [facility] [place] [address] * POCT glucose (05/14/2021 11:47 AM MANAGER ED) Glucose, POC 150 70 - 199 mg/dL [facility] Blood 05/14/2021 11:4 7 AM MANAGER ED 05/14/2021 11:47 AM MANAGER ED us Rhina Granados MD LAB POCT ORDERABLES - DEVICE Final Result Performing Organization Address [facility] de Phone Number HENRIK [address] Department [place] [address] * eGFR (05/14/2021 9:22 AM MANAGER ED) [facility] eGFR 111 mL/min/1.7 3 m2 [facility] Comment: Interpretive Data Reference Interval Normal ?>/= [...] last reviewed 2020 Blood 05/14/2021 9:22 AM MANAGER ED 05/14/2021 10:27 AM MANAGER ED Rhina Granados MD LAB BLOOD ORDERABLES Final R esult Performing Organization Address [facility] de Phone Number HENRIK [address] Department [place] [address] * Magnesium (05/14/2021 9:22 AM MANAGER ED) [facility] Magnesium 1.8 1.4 - 2.5 mg/dL [facility] Blood 05/14/2021 9:22 AM MANAGER ED 05/14/2021 10:27 AM MANAGER ED Silviano Huddleston [employer] LAB BLOOD ORDERABLES Final Result [facility] DON [address] [place] [address] * Phosphorus (05/14/2021 9:22 AM MANAGER ED) [facility] Phosphorus, pl 2.6 2.3 - 4.5 mg/dL [facility] Blood 05/14/2021 9:22 AM MANAGER ED 05/14/2021 10:27 AM MANAGER ED Silviano Huddleston [employer] LAB BLOOD ORDERABLES Final Result Performing Organization Address City/[facility]/ZIP Co de Phone Number HENRIK [address] [facility] [place] [address] * (ABNORMAL) CBC without differential (05/14/2021 9:22 AM MANAGER ED) [facility] WBC 8.8 3.8 - 9.9 K/cumm [facility] Hgb 10.2(L) 13.0 - 17.5 g/dL [facility] Hct 30.2(L) 38.9 - 50.3 % [facility] Plt 271 150 - 400 K/cumm [facility] MPV 12.0 9.1 - 12.3 fL [facility] RBC 3.30(L) 4.30 - 5.80 M/cumm [facility] MCV 91.5 81.3 - 96.4 fL [facility] MCH 30.9 27.1 - 33.3 pg [facility] MCHC 33.8 32.3 - 35.7 g/dL [facility] RDW CV 13.3 11.1 - 14.9 % [facility] RDW SD 44.8 35.7 - 48.1 fL [facility] NRBC abs 0.00 0.00 - 0.01 K/cumm [facility] Blood 05/14/2021 9:22 AM MANAGER ED 05/14/2021 9:22 AM MANAGER ED Rhina Granados MD LAB BLOOD ORDERABLES Final R esult [facility] [address] Department [place] [address] * (ABNORMAL) Basic metabolic panel (05/14/2021 9:22 AM MANAGER ED) Sodium 129(L) 135 - 145 mmol/L [facility] Potassium, pl 4.0 3.3 - 4.9 mmol/L [facility] Chloride 97 97 - 110 mmol/L [facility] CO2 20(L) 22 - 32 mmol/L [facility] Anion gap 12 2 - 15 mmol/L [facility] BUN 16 8 - 25 mg/dL [facility] Creatinine 0.59(L) 0.80 - 1.30 mg/dL [facility] Glucose 148 70 - 199 mg/dL [facility] Comment: Interpretive Data Fasting glucose >/= [...] 2017. Calcium 8.4(L) 8.5 - 10.3 mg/dL [facility] Blood 05/14/2021 9:22 AM MANAGER ED 05/14/2021 10:27 AM MANAGER ED Rhina Granados MD LAB BLOOD ORDERABLES Final R esult [facility] DON [address] [address] [facility] [place] [address] * POCT glucose (05/14/2021 9:07 AM MANAGER ED) Glucose, POC 143 70 - 199 mg/dL [facility] Blood 05/14/2021 9:07 AM MANAGER ED 05/14/2021 9:07 AM MANAGER ED Rhina Granados MD LAB POCT ORDERABLES - DEVICE Final Result Performing Organization Address [facility] Co nh Phone Number HENRIK DON [address] Department [place] [address] * POCT glucose (05/14/2021 6:43 AM MANAGER ED) Glucose, POC 149 70 - 199 mg/dL [facility] Blood 05/14/2021 6:43 AM MANAGER ED 05/14/2021 6:43 AM MANAGER ED Rhina Granados MD LAB POCT ORDERABLES - DEVICE Final Result Performing Organization Address [facility] de Phone Number [facility]RIK DON [address] [address] [place] [address] * XR Chest 1 View (05/14/2021 6:07 AM MANAGER ED) Anatomical Region Laterality Modality Body, Chest N/A Computed Radiogr aphy 05/14/2021 8:33 AM MANAGER ED Impressions 05/14/2021 8:33 AM MANAGER ED Mild vascular congestion. Electronically signed by: Elvira Blackman M.D. Narrative 05/14/2021 8:33 AM MANAGER ED EXAMINATION: XR CHEST 1 VIEW HISTORY: The patient is a 60-year-old male who has had prior bypass surgery. Comparison made with the previous study dated 05/09/2021. TECHNIQUE: AP portable view of the chest. FINDINGS: Borderline cardiomegaly with aortic atherosclerosis. ??Slight haziness of the vascular markings. ??No focal infiltrate. ??The distal tip of a retracted Altha-Radha catheter is in the superior vena cava. [...] infiltrate. The distal tip of a retracted Altha-Radha catheter is in the superior vena cava. IMPRESSION: Mild vascular congestion. Electronically signed by: Elvira Blackman M.D. us Varsha Crowder [employer]LE[employer] IMG XR PROCEDURES Final Re sult * POCT glucose (05/13/2021 8:13 PM MANAGER ED) Glucose, POC 174 70 - 199 mg/dL [facility] Blood 05/13/2021 8:13 PM MANAGER ED 05/13/2021 8:13 PM MANAGER ED Rhina Granados MD LAB POCT ORDERABLES - DEVICE Final Result Performing Organization Address [facility] Co de Phone Number [facility] [address] [place] [address] * POCT glucose (05/13/2021 5:24 PM MANAGER ED) Glucose, POC 194 70 - 199 mg/dL [facility] Blood 05/13/2021 5:24 PM MANAGER ED 05/13/2021 5:24 PM MANAGER ED Rhina Granados MD LAB POCT ORDERABLES - DEVICE Final Result Performing Organization Address [facility] Co de Phone Number [facility] [address] [place] [address] * CT Abdomen Pelvis WO Contrast (05/13/2021 2:31 PM MANAGER ED) Anatomical Region Laterality Modality Body N/A Computed Tomogra phy 05/13/2021 2:45 PM MANAGER ED Impressions 05/13/2021 2:45 PM MANAGER ED Hemorrhagic contents within the urinary bladder which also contains a Osorio catheter Electronically signed by: Deandre Lomeli M.D. Narrative 05/13/2021 2:45 PM MANAGER ED EXAMINATION: CT OF THE ABDOMEN AND PELVIS [...] * (ABNORMAL) POCT glucose (05/13/2021 8:16 AM MANAGER ED) [facility] Glucose, POC 210(H) 70 - 199 mg/dL [facility] Blood 05/13/2021 8:16 AM MANAGER ED 05/13/2021 8:16 AM MANAGER ED Rhina Granados MD LAB POCT ORDERABLES - DEVICE Final Result [facility] [address] Department [place] [address] * eGFR (05/13/2021 6:13 AM MANAGER ED) [facility] eGFR 100 mL/min/1.7 3 m2 [facility] Comment: Interpretive Data Reference Interval [...] last reviewed 2020 Blood 05/13/2021 6:13 AM MANAGER ED 05/13/2021 6:13 AM MANAGER ED us Rhina Granados MD LAB BLOOD ORDERABLES Final R esult Performing Organization Address City/[facility] Co de Phone Number HENRIK DON [address] [place] [address] * Magnesium (05/13/2021 6:13 AM MANAGER ED) Magnesium 2.1 1.4 - 2.5 mg/dL [facility] Blood 05/13/2021 6:13 AM MANAGER ED 05/13/2021 6:13 AM MANAGER ED us Silviano Huddleston [employer] LAB BLOOD ORDERABLES Final Result Performing Organization Address [facility] Co de Phone Number HENRIK [address] [address] [place] [address] * Phosphorus (05/13/2021 6:13 AM MANAGER ED) Phosphorus, pl 2.7 2.3 - 4.5 mg/dL [facility] Blood 05/13/2021 6:13 AM MANAGER ED 05/13/2021 6:13 AM MANAGER ED us Silviano Huddleston NP LAB BLOOD ORDERABLES Final Result Performing Organization Address City/[facility]/ZIP Co de Phone Number HENRIK [address] [place] [address] * (ABNORMAL) Basic metabolic panel (05/13/2021 6:13 AM MANAGER ED) Pathologist [facility] Sodium 127(L) 135 - 145 mmol/L [facility] Potassium, [...] 2017. Calcium 8.1(L) 8.5 - 10.3 mg/dL [facility] Blood 05/13/2021 6:13 AM MANAGER ED 05/13/2021 6:13 AM MANAGER ED us Rhina Granados MD LAB BLOOD ORDERABLES Final R esult Performing Organization Address [facility] Co de Phone Number HENRIK DON [address] [address] [place] [address] * (ABNORMAL) CBC without differential (05/13/2021 6:12 AM MANAGER ED) WBC 9.8 3.8 - 9.9 K/cumm [facility] Hgb 9.7(L) 13.0 - 17.5 g/dL [facility] Hct 29.8(L) 38.9 - 50.3 % [facility] Plt 253 150 - 400 K/cumm [facility] MPV 11.8 9.1 - 12.3 fL [facility] RBC 3.26(L) 4.30 - 5.80 M/cumm [facility] MCV 91.4 81.3 - 96.4 fL [facility] MCH 29.8 27.1 - 33.3 pg [facility] MCHC 32.6 32.3 - 35.7 g/dL [facility] RDW CV 13.2 11.1 - 14.9 % [facility] RDW SD 43.4 35.7 - 48.1 fL [facility] NRBC abs 0.00 0.00 - 0.01 K/cumm [facility] Blood 05/13/2021 6:12 AM MANAGER ED 05/13/2021 6:12 AM MANAGER ED us Rhina Granados MD LAB BLOOD ORDERABLES Final R esult [facility] DON [address] Department [place] [address] * XR Chest 1 View (05/13/2021 6:00 AM MANAGER ED) Anatomical Region Laterality Modality Body, Chest N/A Computed Radiogr aphy 05/13/2021 8:41 AM MANAGER ED Impressions 05/13/2021 8:41 AM MANAGER ED Of failure or pneumothorax. Increasing left effusion. Electronically signed by: Deacon Cummings M.D. Narrative 05/13/2021 8:41 AM MANAGER ED EXAMINATION: XR CHEST 1 VIEW DATE: 05/13/2021 [...] by: Deacon Cummings M.D. us Varsha Crowder [employer] IMG XR PROCEDURES Final Re sult * (ABNORMAL) POCT glucose (05/13/2021 1:40 AM MANAGER ED) Glucose, POC 258(H) 70 - 199 mg/dL [facility] Blood 05/13/2021 1:40 AM MANAGER ED 05/13/2021 1:40 AM MANAGER ED Rhina Granados MD LAB POCT ORDERABLES - DEVICE Final Result Performing Organization Address [facility]/ZIP Co de Phone Number [facility] [address] [place] [address] * POCT glucose (05/12/2021 10:04 PM MANAGER ED) Glucose, POC 188 70 - 199 mg/dL [facility] Blood 05/12/2021 10:0 4 PM MANAGER ED 05/12/2021 10:04 PM MANAGER ED Rhina Granados MD LAB POCT ORDERABLES - DEVICE Final Result Performing Organization Address [facility]/ZIP Co de Phone Number [facility] [address] [place] [address] * POCT glucose (05/12/2021 5:43 PM MANAGER ED) Glucose, POC 171 70 - 199 mg/dL [facility] Blood 05/12/2021 5:43 PM MANAGER ED 05/12/2021 5:43 PM MANAGER ED Rhina Granados MD LAB POCT ORDERABLES - DEVICE Final Result Performing Organization Address City/[facility]/ZIP Co de Phone Number [facility] DON [address] [facility] [address] [place], [place] [id number] * (ABNORMAL) POCT glucose (05/12/2021 12:31 PM MANAGER ED) Glucose, POC 233(H) 70 - 199 mg/dL [facility] Blood 05/12/2021 12:3 1 PM MANAGER ED 05/12/2021 12:31 PM MANAGER ED Rhina Granados MD LAB POCT ORDERABLES - DEVICE Final Result Performing Organization Address [facility] Phone Number [facility]AR[facility]ON DON [address] [facility] [place] [address] * (ABNORMAL) Protime-INR (05/12/2021 12:26 PM MANAGER ED) Pathologist [facility] PT 14.0(H) 9.5 - 13.6 sec [facility] INR 1.3(H) 0.9 - 1.2 [facility] Comment: Interpretive data Oral anticoagulant therapeutic ranges: Venous thromboembolism prophylaxis or treatment: 2.0-3.0 CARDIOLOGY Standard range: 2.0-3.0 High-intensity range: 2.5-3.5 Refer to indication-specific guidelines for appropriate target ranges for prosthetic heart valve replacement. Current interpretive data was last revised on 2019. Blood 05/12/2021 12:2 6 PM MANAGER ED 05/12/2021 12:29 PM MANAGER ED Varsha Crowder NP LAB BLOOD ORDERABLES Final Result Performing Organization Address [facility] Co de Phone Number [facility]RIK DON [address] [address] [facility] [place] [address] * aPTT (05/12/2021 12:26 PM MANAGER ED) Pathologist [facility] aPTT 29 27 - 37 sec [facility] Comment: Interpretive Data Therapeutic heparin range: 60.0 - 94.0 seconds. Based on correlation with therapeutic heparin activity range of 0.3-0.7 Units/mL. Current interpretive data was last revised on 2020. Blood 05/12/2021 12:2 6 PM MANAGER ED 05/12/2021 12:29 PM MANAGER ED Varsha Crowder NP LAB BLOOD ORDERABLES Final Result Performing Organization Address [facility] Co de Phone Number [facility] [address] [facility] [address] [place], [place] [phone] * (ABNORMAL) POCT glucose (05/12/2021 8:10 AM MANAGER ED) [facility] Glucose, POC 202(H) 70 - 199 mg/dL [facility] Blood 05/12/2021 8:10 AM MANAGER ED 05/12/2021 8:10 AM MANAGER ED Nalini Clayton MD LAB POCT ORDERABLES - DEVICE Fin al Result Performing Organization Address [facility] de Phone Number [facility] [address] [facility] [place] [address] * POCT glucose (05/12/2021 7:09 AM MANAGER ED) [facility] Glucose, POC 196 70 - 199 mg/dL [facility] Blood 05/12/2021 7:09 AM MANAGER ED 05/12/2021 7:09 AM MANAGER ED Nalini Clayton MD LAB POCT ORDERABLES - DEVICE Fin al Result Performing Organization Address [facility] de Phone Number [facility] [address] [facility] [place] [address] * eGFR (05/12/2021 6:38 AM MANAGER ED) [facility] eGFR 99 mL/min/1.7 3 m2 [facility] Comment: Interpretive Data Reference Interval [...] last reviewed 2020 Blood 05/12/2021 6:38 AM MANAGER ED 05/12/2021 6:38 AM MANAGER ED us Rhina Granados MD LAB BLOOD ORDERABLES Final R esult Performing Organization Address City/[facility]/ZIP Co de Phone Number [facility] [address] [place], [place] [phone] * Magnesium (05/12/2021 6:38 AM MANAGER ED) Magnesium 1.9 1.4 - 2.5 mg/dL [facility] Blood 05/12/2021 6:38 AM MANAGER ED 05/12/2021 6:38 AM MANAGER ED us Silviano Huddleston [employer] LAB BLOOD ORDERABLES Final Result [facility] [address] [place] [address] * Phosphorus (05/12/2021 6:38 AM MANAGER ED) Phosphorus, pl 3.6 2.3 - 4.5 mg/dL [facility] Blood 05/12/2021 6:38 AM MANAGER ED 05/12/2021 6:38 AM MANAGER ED Silviano Huddleston NP LAB BLOOD ORDERABLES Final Result Performing Organization Address [facility]/ZIP Co de Phone Number [facility] [address] [place] [address] * (ABNORMAL) CBC without differential (05/12/2021 6:38 AM MANAGER ED) Pathologist [facility] WBC 13.8(H) 3.8 - 9.9 K/cumm [facility] Hgb 10.7(L) 13.0 - 17.5 g/dL [facility] Hct 32.7(L) 38.9 - 50.3 % [facility] Plt 304 150 - 400 K/cumm [facility] MPV 11.6 9.1 - 12.3 fL [facility] RBC 3.58(L) 4.30 - 5.80 M/cumm [facility] MCV 91.3 81.3 - 96.4 fL [facility] MCH 29.9 27.1 - 33.3 pg [facility] MCHC 32.7 32.3 - 35.7 g/dL [facility] RDW CV 13.4 11.1 - 14.9 % [facility] RDW SD 44.9 35.7 - 48.1 fL [facility] NRBC abs 0.00 0.00 - 0.01 K/cumm [facility] Blood 05/12/2021 6:38 AM MANAGER ED 05/12/2021 6:38 AM MANAGER ED Rhina Granados MD LAB BLOOD ORDERABLES Final R esult Performing Organization Address City/[facility]/ZIP Co de Phone Number [facility] [address] [place] [address] * (ABNORMAL) Basic metabolic panel (05/12/2021 6:38 AM MANAGER ED) Sodium 130(L) 135 - 145 mmol/L [facility] Potassium, pl 3.5 3.3 - 4.9 mmol/L [facility] Chloride 94(L) 97 - 110 mmol/L [facility] CO2 22 22 - 32 mmol/L [facility] Anion gap 14 2 - 15 mmol/L [facility] BUN 26(H) 8 - 25 mg/dL [facility] Creatinine 0.78(L) 0.80 - 1.30 mg/dL [facility] Glucose 163 70 - 199 mg/dL [facility] Comment: Interpretive Data Fasting glucose [...] 2017. Calcium 8.6 8.5 - 10.3 mg/dL [facility] Blood 05/12/2021 6:38 AM MANAGER ED 05/12/2021 6:38 AM MANAGER ED Rhina Granados MD LAB BLOOD ORDERABLES Final R esult [facility] [address] Department [place] [address] * XR Chest 1 View (05/12/2021 5:33 AM MANAGER ED) Anatomical Region Laterality Modality Body, Chest N/A Computed Radiogr aphy 05/12/2021 8:50 AM MANAGER ED Impressions 05/12/2021 8:50 AM MANAGER ED Stable cardiomegaly without failure or pneumothorax. Atelectasis left base. Electronically signed by: Deacon Cummings M.D. Narrative 05/12/2021 8:50 AM MANAGER ED EXAMINATION: XR CHEST 1 VIEW DATE: 05/12/2021 [...] base. Electronically signed by: Deacon Cummings M.D. Varsha Crowder [employer] IMG XR PROCEDURES Final Re sult * POCT glucose (05/12/2021 1:46 AM MANAGER ED) Glucose, POC 179 70 - 199 mg/dL [facility] Blood 05/12/2021 1:46 AM MANAGER ED 05/12/2021 1:46 AM MANAGER ED Nalini Clayton MD LAB POCT ORDERABLES - DEVICE Fin al Result Performing Organization Address [facility] de Phone Number [facility] [address] [place] [address] * POCT glucose (05/11/2021 9:41 PM MANAGER ED) Glucose, POC 128 70 - 199 mg/dL [facility] Blood 05/11/2021 9:41 PM MANAGER ED 05/11/2021 9:41 PM MANAGER ED Nalini Clayton MD LAB POCT ORDERABLES - DEVICE Fin al Result Performing Organization Address [facility] Co de Phone Number [facility] [address] [place] [address] * POCT glucose (05/11/2021 6:22 PM MANAGER ED) Glucose, POC 142 70 - 199 mg/dL [facility] Blood 05/11/2021 6:22 PM MANAGER ED 05/11/2021 6:22 PM MANAGER ED us Nalini Clayton MD LAB POCT ORDERABLES - DEVICE Fin al Result Performing Organization Address [facility] Co de Phone Number [facility] [address] [facility] [place] [address] * (ABNORMAL) POCT glucose (05/11/2021 11:28 AM MANAGER ED) Glucose, POC 309(H) 70 - 199 mg/dL [facility] Blood 05/11/2021 11:2 8 AM MANAGER ED 05/11/2021 11:28 AM MANAGER ED us Nalini Clayton MD LAB POCT ORDERABLES - DEVICE Fin al Result Performing Organization Address [facility] de Phone Number [facility] [address] [facility] [address] [place], [place] [id number] * POCT glucose (05/11/2021 8:59 AM MANAGER ED) Glucose, POC 172 70 - 199 mg/dL [facility] Blood 05/11/2021 8:59 AM MANAGER ED 05/11/2021 8:59 AM MANAGER ED us Nalini Clayton MD LAB POCT ORDERABLES - DEVICE Fin al Result Performing Organization Address [facility] de Phone Number [facility] [address] [facility] [place] [address] * XR Chest 1 View - Portable - in AM (05/11/2021 6:57 AM MANAGER ED) Anatomical Region Laterality Modality Body, Chest N/A Computed Radiogr aphy 05/11/2021 9:13 AM MANAGER ED Impressions 05/11/2021 9:13 AM MANAGER ED IMPRESSION: No failure. Electronically signed by: Elvira Blackman M.D. Narrative 05/11/2021 9:13 AM MANAGER ED EXAMINATION: XR CHEST 1 VIEW HISTORY: The patient is a 60-year-old male who has had cardiac surgery. Comparison made with the previous study dated 05/10/2021. TECHNIQUE: AP portable view of the chest. FINDINGS: Lungs clear. ??Heart not enlarged. ??Aortic atherosclerosis. ??No failure. ??The right IJ Altha-Radha catheter has been retracted with its tip [...] Aortic atherosclerosis. No failure. The right IJ Altha-Radha catheter has been retracted with its tip in the distal superior vena cava. IMPRESSION: IMPRESSION: No failure. Electronically signed by: Elvira Blackman M.D. Rhina Granados MD IMG XR PROCEDURES Final Resu lt * eGFR (05/11/2021 6:11 AM MANAGER ED) [facility] eGFR 94 mL/min/1.7 3 m2 [facility] Comment: Interpretive Data Reference Interval Normal ?>/= [...] last reviewed 2020 Blood 05/11/2021 6:11 AM MANAGER ED 05/11/2021 6:30 AM MANAGER ED Rhina Granados MD LAB BLOOD ORDERABLES Final R esult Performing Organization Address City/[facility] Co de Phone Number [facility] [address] [place] [address] * Magnesium (05/11/2021 6:11 AM MANAGER ED) Magnesium 1.8 1.4 - 2.5 mg/dL [facility] Blood 05/11/2021 6:11 AM MANAGER ED 05/11/2021 6:27 AM MANAGER ED Silviano Huddleston NP LAB BLOOD ORDERABLES Final Result Performing Organization Address [facility] de Phone Number [facility] [address] [place] [address] * Phosphorus (05/11/2021 6:11 AM MANAGER ED) Phosphorus, pl 3.5 2.3 - 4.5 mg/dL [facility] Blood 05/11/2021 6:11 AM MANAGER ED 05/11/2021 6:27 AM MANAGER ED Silviano Huddleston NP LAB BLOOD ORDERABLES Final Result Performing Organization Address [facility] Co de Phone Number [facility] [address] [place] [address] * (ABNORMAL) CBC without differential (05/11/2021 6:11 AM MANAGER ED) WBC 17.3(H) 3.8 - 9.9 K/cumm [facility] Hgb 11.1(L) 13.0 - 17.5 g/dL [facility] Hct 33.6(L) 38.9 - 50.3 % [facility] Plt 330 150 - 400 K/cumm [facility] MPV 11.4 9.1 - 12.3 fL [facility] RBC 3.67(L) 4.30 - 5.80 M/cumm [facility] MCV 91.6 81.3 - 96.4 fL [facility] MCH 30.2 27.1 - 33.3 pg [facility] MCHC 33.0 32.3 - 35.7 g/dL [facility] RDW CV 13.3 11.1 - 14.9 % [facility] RDW SD 44.5 35.7 - 48.1 fL [facility] NRBC abs 0.00 0.00 - 0.01 K/cumm [facility] Blood 05/11/2021 6:11 AM MANAGER ED 05/11/2021 6:27 AM MANAGER ED us Rhina Granados MD LAB BLOOD ORDERABLES Final R esult [facility] [address] Department [place] [address] * (ABNORMAL) Basic metabolic panel (05/11/2021 6:11 AM MANAGER ED) Pathologist [facility] Sodium 132(L) 135 - 145 mmol/L [facility] [...] 8.8 8.5 - 10.3 mg/dL [facility] Blood 05/11/2021 6:11 AM MANAGER ED 05/11/2021 6:27 AM MANAGER ED Rhina Granados MD LAB BLOOD ORDERABLES Final R esult Performing Organization Address [facility] Co de Phone Number [facility] [address] [facility] [place] [address] * POCT glucose (05/11/2021 5:05 AM MANAGER ED) Glucose, POC 148 70 - 199 mg/dL [facility] Blood 05/11/2021 5:05 AM MANAGER ED 05/11/2021 5:05 AM MANAGER ED Nalini Clayton MD LAB POCT ORDERABLES - DEVICE Fin al Result Performing Organization Address [facility] de Phone Number [facility] [address] [place] [address] * (ABNORMAL) POCT glucose (05/11/2021 1:22 AM MANAGER ED) Glucose, POC 234(H) 70 - 199 mg/dL [facility] Blood 05/11/2021 1:22 AM MANAGER ED 05/11/2021 1:22 AM MANAGER ED us Nalini Clayton MD LAB POCT ORDERABLES - DEVICE Fin al Result Performing Organization Address [facility] de Phone Number [facility] [address] [place] [address] * (ABNORMAL) POCT glucose (05/10/2021 9:26 PM MANAGER ED) Glucose, POC 231(H) 70 - 199 mg/dL [facility] Blood 05/10/2021 9:26 PM MANAGER ED 05/10/2021 9:26 PM MANAGER ED us Nalini Clayton MD LAB POCT ORDERABLES - DEVICE Fin al Result Performing Organization Address [facility] Co de Phone Number [facility] [address] [place] [address] * (ABNORMAL) POCT glucose (05/10/2021 4:13 PM MANAGER ED) Glucose, POC 209(H) 70 - 199 mg/dL [facility] Blood 05/10/2021 4:13 PM MANAGER ED 05/10/2021 4:13 PM MANAGER ED us Nalini Clayton MD LAB POCT ORDERABLES - DEVICE Fin al Result Performing Organization Address [facility] Co de Phone Number [facility] [address] [place] [address] * (ABNORMAL) POCT glucose (05/10/2021 12:24 PM MANAGER ED) Glucose, POC 207(H) 70 - 199 mg/dL [facility] Blood 05/10/2021 12:2 4 PM MANAGER ED 05/10/2021 12:24 PM MANAGER ED us Nalini Clayton MD LAB POCT ORDERABLES - DEVICE Fin al Result Performing Organization Address [facility] Co de Phone Number [facility] [address] [place] [address] * (ABNORMAL) POCT glucose (05/10/2021 7:57 AM MANAGER ED) Glucose, POC 209(H) 70 - 199 mg/dL [facility] Blood 05/10/2021 7:57 AM MANAGER ED 05/10/2021 7:57 AM MANAGER ED us Nalini Clayton MD LAB POCT ORDERABLES - DEVICE Fin al Result [facility] [address] Department [place] [address] * XR Chest 1 View - Portable - in AM (05/10/2021 6:55 AM MANAGER ED) Anatomical Region Laterality Modality Body, Chest N/A Computed Radiogr aphy 05/10/2021 8:47 AM MANAGER ED Impressions 05/10/2021 8:47 AM MANAGER ED Decreasing failure, atelectasis and left effusion. ?? Electronically signed by: Deandre Lomeli M.D. Narrative 05/10/2021 8:47 AM MANAGER ED EXAMINATION: XR CHEST 1 VIEW DATE: 05/10/2021 2:40 AM COMPARISON: 05/09/2021 HISTORY: 60-year-old man cardiac surgery follow-up FINDINGS:Compared with study the previous day, significant improvement. There is cardiomegaly with postsurgical changes with continued and decreasing failure. Bibasilar atelectasis with left pleural fluid decreasing. No pneumothorax. Altha-Radha catheter remains in place Procedure Note Deandre Lomeli MD - 05/10/2021 EXAMINATION: XR CHEST 1 VIEW DATE: 05/10/2021 2:40 AM COMPARISON: 05/09/2021 HISTORY: 60-year-old man cardiac surgery follow-up FINDINGS:Compared with study the previous day, significant improvement. There is cardiomegaly with postsurgical changes with continued and decreasing failure. Bibasilar atelectasis with left pleural fluid decreasing. No pneumothorax. Altha-Radha catheter remains in place IMPRESSION: Decreasing failure, atelectasis and left effusion. Electronically signed by: Deandre Lomeli M.D. us Rhina Granados MD IMG XR PROCEDURES Final Resu lt * POCT glucose (05/10/2021 5:14 AM MANAGER ED) Glucose, POC 188 70 - 199 mg/dL [facility] Blood 05/10/2021 5:14 AM MANAGER ED 05/10/2021 5:14 AM MANAGER ED us Nalini Clayton MD LAB POCT ORDERABLES - DEVICE Fin al Result Performing Organization Address City/State/[facility] Phone Number [facility] [address] Department [place] [address] * eGFR (05/10/2021 5:02 AM MANAGER ED) eGFR 92 mL/min/1.7 3 m2 [facility] Comment: Interpretive Data Reference Interval [...] last reviewed 2020 Blood 05/10/2021 5:02 AM MANAGER ED 05/10/2021 5:59 AM MANAGER ED us Rhina Granados MD LAB BLOOD ORDERABLES Final R esult Performing Organization Address City/[facility]/ZIP Co de Phone Number [facility] [place] [address] [facility] [place] [address] * Magnesium (05/10/2021 5:02 AM MANAGER ED) [facility] Magnesium 1.8 1.4 - 2.5 mg/dL [facility] Blood 05/10/2021 5:02 AM MANAGER ED 05/10/2021 5:59 AM MANAGER ED Silviano Huddleston [employer] LAB BLOOD ORDERABLES Final Result Performing Organization Address [facility] de Phone Number [facility] [address] [facility] [place] [address] * Phosphorus (05/10/2021 5:02 AM MANAGER ED) Pathologist [facility] Phosphorus, pl 3.9 2.3 - 4.5 mg/dL [facility] Blood 05/10/2021 5:02 AM MANAGER ED 05/10/2021 5:59 AM MANAGER ED Silviano Huddleston [employer] LAB BLOOD ORDERABLES Final Result Performing Organization Address [facility] de Phone Number [facility] [address] [facility] [place] [address] * (ABNORMAL) CBC without differential (05/10/2021 5:02 AM MANAGER ED) [facility] WBC 21.2(H) 3.8 - 9.9 K/cumm [facility] Hgb 12.4(L) 13.0 - 17.5 g/dL [facility] Hct 37.7(L) 38.9 - 50.3 % [facility] Plt 344 150 - 400 K/cumm [facility] MPV 11.4 9.1 - 12.3 fL [facility] RBC 4.19(L) 4.30 - 5.80 M/cumm [facility] MCV 90.0 81.3 - 96.4 fL [facility] MCH 29.6 27.1 - 33.3 pg [facility] MCHC 32.9 32.3 - 35.7 g/dL [facility] RDW CV 13.5 11.1 - 14.9 % [facility] RDW SD 44.3 35.7 - 48.1 fL [facility] NRBC abs 0.00 0.00 - 0.01 K/cumm [facility] Blood 05/10/2021 5:02 AM MANAGER ED 05/10/2021 6:00 AM MANAGER ED Rhina Granados MD LAB BLOOD ORDERABLES Final R esult [facility] [address] [place] [address] * (ABNORMAL) Basic metabolic panel (05/10/2021 5:02 AM MANAGER ED) Sodium 129(L) 135 - 145 mmol/L [facility] Potassium, pl 3.6 3.3 - 4.9 mmol/L [facility] Chloride 90(L) 97 - 110 mmol/L [facility] CO2 25 22 - 32 mmol/L [facility] Anion gap 14 2 - 15 mmol/L [facility] BUN 23 8 - 25 mg/dL [facility] Creatinine 0.91 0.80 - 1.30 mg/dL [facility] Glucose 187 70 - 199 mg/dL [facility] Comment: [...] 8.5 - 10.3 mg/dL [facility] Blood 05/10/2021 5:02 AM MANAGER ED 05/10/2021 5:59 AM MANAGER ED Rhina Granados MD LAB BLOOD ORDERABLES Final R esult Performing Organization Address [facility] Co de Phone Number [facility] [address] [facility] [place] [address] * (ABNORMAL) POCT glucose (05/10/2021 1:09 AM MANAGER ED) Glucose, POC 216(H) 70 - 199 mg/dL [facility] Blood 05/10/2021 1:09 AM MANAGER ED 05/10/2021 1:09 AM MANAGER ED us Nalini Clayton MD LAB POCT ORDERABLES - DEVICE Fin al Result Performing Organization Address [facility] de Phone Number [facility] [address] [place] [address] * (ABNORMAL) POCT glucose (05/09/2021 10:52 PM MANAGER ED) Glucose, POC 257(H) 70 - 199 mg/dL [facility] Blood 05/09/2021 10:5 2 PM MANAGER ED 05/09/2021 10:52 PM MANAGER ED us Nalini Clayton MD LAB POCT ORDERABLES - DEVICE Fin al Result Performing Organization Address [facility] Co de Phone Number [facility] [place] [address] [place], [place] [id number] * POCT glucose (05/09/2021 6:13 PM MANAGER ED) Glucose, POC 192 70 - 199 mg/dL [facility] Blood 05/09/2021 6:13 PM MANAGER ED 05/09/2021 6:13 PM MANAGER ED us Nalini Clayton MD LAB POCT ORDERABLES - DEVICE Fin al Result Performing Organization Address [facility] Co de Phone Number [facility] [address] [place], [place] [id number] * (ABNORMAL) POCT glucose (05/09/2021 11:40 AM MANAGER ED) Glucose, POC 274(H) 70 - 199 mg/dL [facility] Blood 05/09/2021 11:4 0 AM MANAGER ED 05/09/2021 11:40 AM MANAGER ED Nalini Clayton MD LAB POCT ORDERABLES - DEVICE Fin al Result Performing Organization Address [facility] de Phone Number [facility] [address] [place] [address] * POCT glucose (05/09/2021 7:56 AM MANAGER ED) Glucose, POC 162 70 - 199 mg/dL [facility] Blood 05/09/2021 7:56 AM MANAGER ED 05/09/2021 7:56 AM MANAGER ED Nalini Clayton MD LAB POCT ORDERABLES - DEVICE Fin al Result Performing Organization Address [facility] de Phone Number [facility] [address] [place] [address] * XR Chest 1 View - Portable - in AM (05/09/2021 6:12 AM MANAGER ED) Anatomical Region Laterality Modality Body, Chest N/A Computed Radiogr aphy 05/09/2021 3:27 PM MANAGER ED Impressions 05/09/2021 3:27 PM MANAGER ED Decreasing failure, atelectasis and left effusion. ?? Electronically signed by: Deandre Lomeli M.D. Narrative 05/09/2021 3:27 PM MANAGER ED EXAMINATION: XR CHEST 1 VIEW DATE: 05/09/2021 4:10 AM HISTORY: 60-year-old man cardiac surgery follow-up FINDINGS:Compared with study the previous day, significant improvement. There is cardiomegaly with postsurgical changes with continued but decreasing failure. Bibasilar atelectasis with left pleural fluid decreasing. No pneumothorax. Altha-Radha catheter remains in place Procedure Note Deandre Lomeli MD - 05/09/2021 EXAMINATION: XR CHEST 1 VIEW DATE: 05/09/2021 4:10 AM HISTORY: 60-year-old man cardiac surgery follow-up FINDINGS:Compared with study the previous day, significant improvement. There is cardiomegaly with postsurgical changes with continued but decreasing failure. Bibasilar atelectasis with left pleural fluid decreasing. No pneumothorax. Altha-Radha catheter remains in place IMPRESSION: Decreasing failure, atelectasis and left effusion. Electronically signed by: Deandre Lomeli M.D. us Rhina Granados MD IMG XR PROCEDURES Final Resu lt * eGFR (05/09/2021 6:12 AM MANAGER ED) [facility] eGFR 99 mL/min/1.7 3 m2 [facility] [...] last reviewed 2020 Blood 05/09/2021 6:12 AM MANAGER ED 05/09/2021 6:44 AM MANAGER ED us Rhina Granados MD LAB BLOOD ORDERABLES Final R esult Performing Organization Address City/[facility] Co de Phone Number [facility] [address] [place] [address] * Magnesium (05/09/2021 6:12 AM MANAGER ED) Pathologist [facility] Magnesium 2.0 1.4 - 2.5 mg/dL [facility] Blood 05/09/2021 6:12 AM MANAGER ED 05/09/2021 6:44 AM MANAGER ED Silviano Huddleston [employer] LAB BLOOD ORDERABLES Final Result Performing Organization Address [facility] de Phone Number [facility] [address] [facility] [place] [address] * Phosphorus (05/09/2021 6:12 AM MANAGER ED) Pathologist [facility] Phosphorus, pl 3.4 2.3 - 4.5 mg/dL [facility] Blood 05/09/2021 6:12 AM MANAGER ED 05/09/2021 6:44 AM MANAGER ED Silviano Huddleston [employer] LAB BLOOD ORDERABLES Final Result Performing Organization Address [facility] de Phone Number [facility] [address] [place] [address] * (ABNORMAL) CBC without differential (05/09/2021 6:12 AM MANAGER ED) Pathologist [facility] WBC 16.0(H) 3.8 - 9.9 K/cumm [facility] Hgb 11.4(L) 13.0 - 17.5 g/dL [facility] Hct 34.9(L) 38.9 - 50.3 % [facility] Plt 294 150 - 400 K/cumm [facility] MPV 11.3 9.1 - 12.3 fL [facility] RBC 3.81(L) 4.30 - 5.80 M/cumm [facility] MCV 91.6 81.3 - 96.4 fL [facility] MCH 29.9 27.1 - 33.3 pg [facility] MCHC 32.7 32.3 - 35.7 g/dL [facility] RDW CV 13.7 11.1 - 14.9 % [facility] RDW SD 45.7 35.7 - 48.1 fL [facility] NRBC abs 0.00 0.00 - 0.01 K/cumm [facility] Blood 05/09/2021 6:12 AM MANAGER ED 05/09/2021 6:44 AM MANAGER ED Rhina Granados MD LAB BLOOD ORDERABLES Final R esult [facility] [address] Department [place] [address] * (ABNORMAL) Basic metabolic panel (05/09/2021 6:12 AM MANAGER ED) Sodium 131(L) 135 - 145 mmol/L [facility] Potassium, pl 3.7 3.3 - 4.9 mmol/L [facility] Chloride 92(L) 97 - 110 mmol/L [facility] CO2 26 22 - 32 mmol/L [facility] Anion gap 13 2 - 15 mmol/L [facility] BUN 17 8 - 25 mg/dL [facility] Creatinine 0.78(L) 0.80 - 1.30 mg/dL [facility] Glucose 174 70 - 199 mg/dL [facility] Comment: [...] Calcium 9.4 8.5 - 10.3 mg/dL [facility] Blood 05/09/2021 6:12 AM MANAGER ED 05/09/2021 6:44 AM MANAGER ED Rhina Granados MD LAB BLOOD ORDERABLES Final R esult Performing Organization Address [facility]/ZIP Co de Phone Number HENRIK [address] [facility] [place] [address] * POCT glucose (05/09/2021 3:58 AM MANAGER ED) Glucose, POC 187 70 - 199 mg/dL [facility] Blood 05/09/2021 3:58 AM MANAGER ED 05/09/2021 3:58 AM MANAGER ED Nalini Clayton MD LAB POCT ORDERABLES - DEVICE Fin al Result Performing Organization Address [facility] Co de Phone Number [facility] [address] [facility] [place] [address] * (ABNORMAL) POCT glucose (05/09/2021 12:30 AM MANAGER ED) Glucose, POC 202(H) 70 - 199 mg/dL [facility] Blood 05/09/2021 12:3 0 AM MANAGER ED 05/09/2021 12:30 AM MANAGER ED Nalini Clayton MD LAB POCT ORDERABLES - DEVICE Fin al Result Performing Organization Address [facility] Co de Phone Number [facility] [address] [facility] [place] [address] * (ABNORMAL) POCT glucose (05/08/2021 10:32 PM MANAGER ED) Glucose, POC 210(H) 70 - 199 mg/dL [facility] Blood 05/08/2021 10:3 2 PM MANAGER ED 05/08/2021 10:32 PM MANAGER ED us Nalini Clayton MD LAB POCT ORDERABLES - DEVICE Fin al Result Performing Organization Address [facility] Co de Phone Number [facility] [address] [place], [place] [id number] * (ABNORMAL) POCT glucose (05/08/2021 5:38 PM MANAGER ED) Glucose, POC 248(H) 70 - 199 mg/dL [facility] Blood 05/08/2021 5:38 PM MANAGER ED 05/08/2021 5:38 PM MANAGER ED Nalini Clayton MD LAB POCT ORDERABLES - DEVICE Fin al Result Performing Organization Address [facility] de Phone Number [facility] [address] [facility] [place] [address] * (ABNORMAL) POCT glucose (05/08/2021 12:01 PM MANAGER ED) Glucose, POC 223(H) 70 - 199 mg/dL [facility] Blood 05/08/2021 12:0 1 PM MANAGER ED 05/08/2021 12:01 PM MANAGER ED Nalini Clayton MD LAB POCT ORDERABLES - DEVICE Fin al Result Performing Organization Address [facility] de Phone Number [facility] [address] [facility] [place] [address] * POCT glucose (05/08/2021 7:41 AM MANAGER ED) Glucose, POC 184 70 - 199 mg/dL [facility] Blood 05/08/2021 7:41 AM MANAGER ED 05/08/2021 7:41 AM MANAGER ED Nalini Clayton MD LAB POCT ORDERABLES - DEVICE Fin al Result Performing Organization Address [facility] de Phone Number [facility] [address] [facility] [place] [address] * eGFR (05/08/2021 5:55 AM MANAGER ED) eGFR 111 mL/min/1.7 3 m2 [facility] Comment: Interpretive Data Reference Interval [...] last reviewed 2020 Blood 05/08/2021 5:55 AM MANAGER ED 05/08/2021 6:03 AM MANAGER ED us Rhina Granados MD LAB BLOOD ORDERABLES Final R esult Performing Organization Address City/[facility] Co de Phone Number [facility] [address] [place] [address] * Magnesium (05/08/2021 5:55 AM MANAGER ED) Magnesium 1.9 1.4 - 2.5 mg/dL [facility] Blood 05/08/2021 5:55 AM MANAGER ED 05/08/2021 6:03 AM MANAGER ED us Silviano Huddleston NP LAB BLOOD ORDERABLES Final Result Performing Organization Address [facility] Co de Phone Number [facility] [address] [place] [address] * Phosphorus (05/08/2021 5:55 AM MANAGER ED) Pathologist [facility] Phosphorus, pl 3.3 2.3 - 4.5 mg/dL [facility] Blood 05/08/2021 5:55 AM MANAGER ED 05/08/2021 6:03 AM MANAGER ED us Silviano Huddleston [employer] LAB BLOOD ORDERABLES Final Result Performing Organization Address City/[facility]/ZIP Co de Phone Number [facility] [place] [address] [place] [address] * (ABNORMAL) CBC without differential (05/08/2021 5:55 AM MANAGER ED) Pathologist [facility] WBC 16.2(H) 3.8 - 9.9 K/cumm [facility] Hgb 10.5(L) 13.0 - 17.5 g/dL [facility] Hct 31.0(L) 38.9 - 50.3 % [facility] Plt 247 150 - 400 K/cumm [facility] MPV [...] 0.01 K/cumm [facility] Blood 05/08/2021 5:55 AM MANAGER ED 05/08/2021 6:03 AM MANAGER ED us Rhina Granados MD LAB BLOOD ORDERABLES Final R esult [facility] [place] [address] [place] [address] * (ABNORMAL) Basic metabolic panel (05/08/2021 5:55 AM MANAGER ED) Sodium 131(L) 135 - 145 mmol/L [facility] Potassium, pl 3.2(L) 3.3 - 4.9 mmol/L [facility] Chloride 94(L) 97 - 110 mmol/L [facility] CO2 25 22 - 32 mmol/L [facility] Anion gap 12 2 - 15 mmol/L [facility] BUN 13 8 - 25 mg/dL [facility] Creatinine 0.59(L) 0.80 - 1.30 mg/dL [facility] Glucose 191 70 - 199 mg/dL [facility] Comment: Interpretive [...] 2017. Calcium 8.6 8.5 - 10.3 mg/dL [facility] Blood 05/08/2021 5:55 AM MANAGER ED 05/08/2021 6:03 AM MANAGER ED us Rhina Granados MD LAB BLOOD ORDERABLES Final R esult [facility] [address] Department [place] [address] * XR Chest 1 View - Portable - in AM (05/08/2021 5:34 AM MANAGER ED) Anatomical Region Laterality Modality Body, Chest N/A Computed Radiogr aphy 05/08/2021 8:39 AM MANAGER ED Impressions 05/08/2021 8:39 AM MANAGER ED Decreasing failure. No pneumothorax. Electronically signed by: Deacon Cummings M.D. Narrative 05/08/2021 8:39 AM MANAGER ED EXAMINATION: XR CHEST 1 VIEW DATE: 05/08/2021 4:15 AM HISTORY: 60-year-old man cardiac surgery follow-up FINDINGS:Compared with study the previous day, significant improvement. There is cardiomegaly with postsurgical changes with continued but decreasing failure. Bibasilar atelectasis with left pleural fluid. No pneumothorax. Altha-Radha catheter remains in place Procedure Note Deacon Cummings MD - 05/08/2021 EXAMINATION: XR CHEST 1 VIEW DATE: 05/08/2021 4:15 AM HISTORY: 60-year-old man cardiac surgery follow-up FINDINGS:Compared with study the previous day, significant improvement. There is cardiomegaly with postsurgical changes with continued but decreasing failure. Bibasilar atelectasis with left pleural fluid. No pneumothorax. Altha-Radha catheter remains in place IMPRESSION: Decreasing failure. No pneumothorax. Electronically signed by: Deacon Cummings M.D. Rhina Granados MD IMG XR PROCEDURES Final Resu lt * POCT glucose (05/08/2021 4:08 AM MANAGER ED) Glucose, POC 152 70 - 199 mg/dL [facility] Blood 05/08/2021 4:08 AM MANAGER ED 05/08/2021 4:08 AM MANAGER ED Nalini Clayton MD LAB POCT ORDERABLES - DEVICE Fin al Result Performing Organization Address [facility] de Phone Number [facility] [address] [facility] [place] [address] * POCT glucose (05/08/2021 12:12 AM MANAGER ED) Glucose, POC 158 70 - 199 mg/dL [facility] Blood 05/08/2021 12:1 2 AM MANAGER ED 05/08/2021 12:12 AM MANAGER ED us Nalini Clayton MD LAB POCT ORDERABLES - DEVICE Fin al Result Performing Organization Address [facility] de Phone Number [facility] [address] [place] [address] * (ABNORMAL) POCT glucose (05/07/2021 7:51 PM MANAGER ED) Glucose, POC 214(H) 70 - 199 mg/dL [facility] Blood 05/07/2021 7:51 PM MANAGER ED 05/07/2021 7:51 PM MANAGER ED us Nalini Clayton MD LAB POCT ORDERABLES - DEVICE Fin al Result Performing Organization Address [facility] de Phone Number [facility] [address] [facility] [place] [address] * (ABNORMAL) POCT glucose (05/07/2021 3:56 PM MANAGER ED) Glucose, POC 204(H) 70 - 199 mg/dL [facility] Blood 05/07/2021 3:56 PM MANAGER ED 05/07/2021 3:56 PM MANAGER ED us Nalini Clayton MD LAB POCT ORDERABLES - DEVICE Fin al Result Performing Organization Address [facility] de Phone Number [facility] [address] [facility] [place] [address] * Transfuse RBC (05/07/2021 3:41 PM MANAGER ED) Blood specimen (specimen) Result Yunior Granados MD BLOOD TRANSFUSION ORDERABLES Final Result Performing Organization Address [facility] de Phone Number [facility] [address] [facility] [place] [address] * Transfuse RBC: 1 Units (05/07/2021 3:41 PM MANAGER ED) Blood specimen (specimen) Result Yunior Granados MD BLOOD TRANSFUSION ORDERABLES Final Result * Critical Care (05/07/2021 3:37 PM MANAGER ED) Narrative Domenica Rod MD - 05/07/2021 3:37 PM MANAGER ED Domenica Rod MD ? 05/07/2021 ??3:38 PM [...] plan with the ICU team and other medical/aws consultant staff, making frequent assessments and decisions [...] in the medical record Domenica Rod MD IN CLINIC/BEDSIDE ORDERABLES Final Result * TRANSTHORACIC ECHO (TTE) LIMITED/FOLLOW UP W LTD DOPPLER/CF WO CONTRAST (05/07/2021 12:37 PM MANAGER ED) Anatomical Region Laterality Modality Ultrasound 05/07/2021 12:1 6 PM MANAGER ED Narrative 05/07/2021 12:54 [place] [address] Limited Echocardiogram Report Patient Name: DEEPAK ALVARADO : 1960 Study Date: 05/07/2021 12:16:52 PM Gender: M Tech: Location: [id number] Ref.Provider: RHINA GRANADOS Height(Cm): 175 BSA: 2.1 [...] tamponade. Electronically Signed By: Gianni Francois MD, [facility] 2021-05-07 12:54:09 MANAGER ED Procedure Note Gianni Francois MD - 05/07/2021 [place] [address] Limited Echocardiogram Report Patient Name: DEEPAK ALVARADOPatient ID: [id number] : [id number] Date: 05/07/2021 12:16:52 PM Gender: MAccession #: [id number] Tech: SRLocation: [id number] Ref.Provider: RHINA GRANADOSHeight(Cm): 175 BSA: 2.1Weight(Kg): 91 Heart Rate: 82BP: [...] tamponade. Electronically Signed By: Gianni Francois MD, [facility] 2021-05-07 12:54:09 MANAGER ED us Rhina Granados MD CV ECHO PROCEDURES Final Res ult * POCT glucose (05/07/2021 12:18 PM MANAGER ED) Pathologist [facility] Glucose, POC 181 70 - 199 mg/dL [facility] Blood 05/07/2021 12:1 8 PM MANAGER ED 05/07/2021 12:18 PM MANAGER ED us Nalini Clayton MD LAB POCT ORDERABLES - DEVICE Fin al Result [facility] [address] Department [place] [address] * Type and screen (05/07/2021 10:36 AM MANAGER ED) ABO Rh A Positive [facility] [place], indirect Negative [facility] Blood 05/07/2021 10:3 6 AM MANAGER ED 05/07/2021 11:02 AM MANAGER ED Narrative [facility] - 05/07/2021 11:52 AM MANAGER ED Has the patient had Daratumumab or Isatuximab in the past 6 months?->Unknown Rhina Granados MD LAB BLOOD BANK TEST ORDERABL ES Final Result Performing Organization Address [facility] Co de Phone Number [facility]K DON [address] [facility] [place] [address] * POCT glucose (05/07/2021 8:55 AM MANAGER ED) Glucose, POC 153 70 - 199 mg/dL [facility] Blood 05/07/2021 8:55 AM MANAGER ED 05/07/2021 8:55 AM MANAGER ED Nalini Clayton MD LAB POCT ORDERABLES - DEVICE Fin al Result Performing Organization Address [facility] de Phone Number [place] [address] [place] [address] * Prepare RBC: 1 Units (05/07/2021 8:32 AM MANAGER ED) Product code [id number] [facility] Unit Number [id number] [facility] Product Blood Type [facility] Dispense Status PRESUMED TRANSFUSED [facility] Blood 05/07/2021 8:32 AM MANAGER ED Narrative [facility] - 05/07/2021 10:15 PM MANAGER ED Are special requirements needed? (all products are leukoreduced)->No Date required:-[id number] LRRBC # of [id number] Reasons:-Active bleeding, Hgb <8 g/dL} Rhina Granados MD BLOOD BANK PRODUCT ORDERABLE S Final Result Performing Organization Address [facility] Co de Phone Number HENRIK FLOR[place] [address] [facility] [address] [place], [place] [id number] * Oxyhemoglobin, central venous (05/07/2021 6:15 AM MANAGER ED) Oxyhemoglobin, CV 78.5 % [facility] DON Comment: Interpretive Data No reference range established. Current interpretive data was last revised 2019. Blood 05/07/2021 6:15 AM MANAGER ED 05/07/2021 6:39 AM MANAGER ED us Rhina Granados MD LAB BLOOD ORDERABLES Final R esult [facility] [place] [address] [place] [address] * XR Chest 1 View - Portable - in AM (05/07/2021 5:33 AM MANAGER ED) Anatomical Region Laterality Modality Body, Chest N/A Computed Radiogr aphy 05/07/2021 8:42 AM MANAGER ED Impressions 05/07/2021 8:42 AM MANAGER ED Persistent prominent interstitial lung disease with failure. Electronically signed by: Deacon Cummings M.D. Narrative 05/07/2021 8:42 AM MANAGER ED EXAMINATION: XR CHEST 1 VIEW DATE: 05/07/2021 3:55 AM HISTORY: 60-year-old man follow-up cardiac surgery FINDINGS:Compared with study of the previous day, postsurgical changes in the heart and mediastinum with cardiomegaly are stable. Altha-Radha catheter remains in place. Left thoracostomy tube remains in place. No pneumothorax. Pulmonary vascular congestion with interstitial lung disease remain prominent. Procedure Note Deacon Cummings MD - 05/07/2021 EXAMINATION: XR CHEST 1 VIEW DATE: 05/07/2021 3:55 AM HISTORY: 60-year-old man follow-up cardiac surgery FINDINGS:Compared with study of the previous day, postsurgical changes in the heart and mediastinum with cardiomegaly are stable. Altha-Radha catheter remains in place. Left thoracostomy tube remains in place. No pneumothorax. Pulmonary vascular congestion with interstitial lung disease remain prominent. IMPRESSION: Persistent prominent interstitial lung disease with failure. Electronically signed by: Deacon Cummings M.D. us Rhina Granados MD IMG XR PROCEDURES Final Resu lt * eGFR (05/07/2021 4:21 AM MANAGER ED) eGFR 111 mL/min/1.7 3 m2 [facility] DON [...] last reviewed 2020 Blood 05/07/2021 4:21 AM MANAGER ED 05/07/2021 4:31 AM MANAGER ED us Rhina Granados MD LAB BLOOD ORDERABLES Final R esult [facility] [address] Department [place] [address] * Magnesium (05/07/2021 4:21 AM MANAGER ED) Magnesium 1.7 1.4 - 2.5 mg/dL [facility] Blood 05/07/2021 4:21 AM MANAGER ED 05/07/2021 4:31 AM MANAGER ED Silviano Saldivar [employer] LAB BLOOD ORDERABLES Final Result [facility] [place] [address] [facility] [place] [address] * Phosphorus (05/07/2021 4:21 AM MANAGER ED) Phosphorus, pl 2.7 2.3 - 4.5 mg/dL [facility] Blood 05/07/2021 4:21 AM MANAGER ED 05/07/2021 4:31 AM MANAGER ED Silviano Saldivar [employer] LAB BLOOD ORDERABLES Final Result Performing Organization Address [facility] Co de Phone Number [facility] DON [address] [facility] [place] [address] * (ABNORMAL) CBC without differential (05/07/2021 4:21 AM MANAGER ED) WBC 16.6(H) 3.8 - 9.9 K/cumm [facility] Hgb 8.6(L) 13.0 - 17.5 g/dL C[facility]ER [...] K/cumm [facility] Blood 05/07/2021 4:21 AM MANAGER ED 05/07/2021 4:30 AM MANAGER ED Rhina Granados MD LAB BLOOD ORDERABLES Final R esult [place] [address] [employer] [place], [place] [id number] * (ABNORMAL) Basic metabolic panel (05/07/2021 4:21 AM MANAGER ED) Sodium 137 135 - 145 mmol/L [facility] Potassium, pl 3.3 3.3 - 4.9 mmol/L [facility] Chloride 103 97 - 110 mmol/L [facility] CO2 18(L) 22 - 32 mmol/L [facility] Anion gap 16(H) 2 - 15 mmol/L [facility] BUN 16 8 - 25 mg/dL [facility] Creatinine 0.59(L) 0.80 - 1.30 mg/dL [facility] Glucose 152 70 - 199 mg/dL [facility] Comment: [...] 2017. Calcium 8.1(L) 8.5 - 10.3 mg/dL [facility] Blood 05/07/2021 4:21 AM MANAGER ED 05/07/2021 4:31 AM MANAGER ED Rhina Granados MD LAB BLOOD ORDERABLES Final R esult [place] [address] [place] [address] * POCT glucose (05/07/2021 4:19 AM MANAGER ED) Glucose, POC 146 70 - 199 mg/dL [facility] Blood 05/07/2021 4:19 AM MANAGER ED 05/07/2021 4:19 AM MANAGER ED us Nalini Clayton MD LAB POCT ORDERABLES - DEVICE Fin al Result Performing Organization Address [facility] Co de Phone Number HENRIK [address] [place] [address] * eGFR (05/06/2021 11:14 PM MANAGER ED) Pathologist [facility] eGFR 109 mL/min/1.7 3 m2 [facility] Comment: Interpretive Data Reference Interval [...] reviewed 2020 Blood 05/06/2021 11:1 4 PM MANAGER ED 05/06/2021 11:17 PM MANAGER ED us Rhina Granados MD LAB BLOOD ORDERABLES Final R esult Performing Organization Address [facility] de Phone Number [facility] [address] [place] [address] * Magnesium (05/06/2021 11:14 PM MANAGER ED) Magnesium 1.8 1.4 - 2.5 mg/dL [facility] Blood 05/06/2021 11:1 4 PM MANAGER ED 05/06/2021 11:17 PM MANAGER ED Rhina Granados MD LAB BLOOD ORDERABLES Final R esult Performing Organization Address City/[facility]/ZIP Co de Phone Number [facility] [address] [place] [address] * (ABNORMAL) Basic metabolic panel (05/06/2021 11:14 PM MANAGER ED) Sodium 138 135 - 145 mmol/L [facility] Potassium, pl 3.6 3.3 - 4.9 mmol/L [facility] Chloride 104 97 - 110 mmol/L [facility] CO2 19(L) 22 - 32 mmol/L [facility] Anion gap 15 2 - 15 mmol/L [facility] BUN 17 8 - 25 mg/dL [facility] Creatinine 0.62(L) 0.80 - 1.30 mg/dL [facility] Glucose 169 70 - 199 mg/dL [facility] Comment: Interpretive Data Fasting glucose [...] 2017. Calcium 8.3(L) 8.5 - 10.3 mg/dL [facility] Blood 05/06/2021 11:1 4 PM MANAGER ED 05/06/2021 11:17 PM MANAGER ED Rhina Granados MD LAB BLOOD ORDERABLES Final R esult Performing Organization Address City/[facility]/ZIP Co de Phone Number [facility] [address] [place] [address] * POCT glucose (05/06/2021 11:13 PM MANAGER ED) Glucose, POC 163 70 - 199 mg/dL [facility] Blood 05/06/2021 11:1 3 PM MANAGER ED 05/06/2021 11:13 PM MANAGER ED Nalini Clayton MD LAB POCT ORDERABLES - DEVICE Fin al Result Performing Organization Address [facility] Co de Phone Number [facility] [address] [place] [address] * POCT glucose (05/06/2021 8:03 PM MANAGER ED) Glucose, POC 176 70 - 199 mg/dL [facility] Blood 05/06/2021 8:03 PM MANAGER ED 05/06/2021 8:03 PM MANAGER ED Nalini Clayton MD LAB POCT ORDERABLES - DEVICE Fin al Result Performing Organization Address [facility] Co de Phone Number [facility] [address] [place] [address] * POCT glucose (05/06/2021 3:46 PM MANAGER ED) Glucose, POC 140 70 - 199 mg/dL [facility] Blood 05/06/2021 3:46 PM MANAGER ED 05/06/2021 3:46 PM MANAGER ED Nalini Clayton MD LAB POCT ORDERABLES - DEVICE Fin al Result Performing Organization Address [facility] Co de Phone Number [facility] [address] [place] [address] * eGFR (05/06/2021 1:12 PM MANAGER ED) eGFR 104 mL/min/1.7 3 m2 [facility] Comment: Interpretive Data Reference Interval [...] last reviewed 2020 Blood 05/06/2021 1:12 PM MANAGER ED 05/06/2021 1:22 PM MANAGER ED us Rhina Granados MD LAB BLOOD ORDERABLES Final R esult [facility] [address] Department [place] [address] * (ABNORMAL) CBC without differential (05/06/2021 1:12 PM MANAGER ED) WBC 16.1(H) 3.8 - 9.9 K/cumm [facility] Hgb 9.0(L) 13.0 - 17.5 g/dL [facility] Hct 26.5(L) 38.9 - 50.3 % [facility] Plt 202 150 - 400 K/cumm [facility] MPV 11.4 9.1 - 12.3 fL [facility] RBC 2.95(L) 4.30 - 5.80 M/cumm [facility] MCV 89.8 81.3 - 96.4 fL [facility] MCH 30.5 27.1 - 33.3 pg [facility] MCHC 34.0 32.3 - 35.7 g/dL [facility] RDW CV 14.3 11.1 - 14.9 % [facility] RDW SD 46.1 35.7 - 48.1 fL [facility] NRBC abs 0.00 0.00 - 0.01 K/cumm [facility] Blood 05/06/2021 1:12 PM MANAGER ED 05/06/2021 1:22 PM MANAGER ED Rhina Granados MD LAB BLOOD ORDERABLES Final R esult [facility] [address] [place] [address] * Magnesium (05/06/2021 1:12 PM MANAGER ED) [facility] Magnesium 1.8 1.4 - 2.5 mg/dL [facility] Blood 05/06/2021 1:12 PM MANAGER ED 05/06/2021 1:22 PM MANAGER ED Rhina Granados MD LAB BLOOD ORDERABLES Final R esult [facility] [address] [place] [address] * (ABNORMAL) Basic metabolic panel (05/06/2021 1:12 PM MANAGER ED) Pathologist [facility] Sodium 139 135 - 145 mmol/L [facility] Potassium, pl 3.4 3.3 - 4.9 mmol/L [facility] Chloride 107 97 - 110 mmol/L [facility] CO2 22 22 - 32 mmol/L [facility] Anion gap 10 2 - 15 mmol/L [facility] BUN 15 8 - 25 mg/dL [facility] Creatinine 0.69(L) 0.80 - 1.30 mg/dL [facility] Comment:Icteric sample, test results may be affected. Glucose 163 70 - 199 mg/dL [facility] CH Comment: Interpretive Data Fasting glucose >/= [...] Calcium 8.2(L) 8.5 - 10.3 mg/dL [facility] Blood 05/06/2021 1:12 PM MANAGER ED 05/06/2021 1:22 PM MANAGER ED us Rhina Granados MD LAB BLOOD ORDERABLES Final R esult Performing Organization Address [facility] de Phone Number [facility] [address] [place] [address] * POCT glucose (05/06/2021 11:47 AM MANAGER ED) Glucose, POC 169 70 - 199 mg/dL [facility] Blood 05/06/2021 11:4 7 AM MANAGER ED 05/06/2021 11:47 AM MANAGER ED us Nalini Clayton MD LAB POCT ORDERABLES - DEVICE Fin al Result Performing Organization Address [facility] de Phone Number [facility] [address] [place] [address] * (ABNORMAL) POCT glucose (05/06/2021 7:41 AM MANAGER ED) Glucose, POC 213(H) 70 - 199 mg/dL [facility] Blood 05/06/2021 7:41 AM MANAGER ED 05/06/2021 7:41 AM MANAGER ED us Nalini Clayton MD LAB POCT ORDERABLES - DEVICE Fin al Result Performing Organization Address [facility] [place] Number [place] [address] [address] [place], [place] [address] * XR Chest 1 View - Portable - in AM (05/06/2021 5:55 AM MANAGER ED) Anatomical Region Laterality Modality Body, Chest N/A Computed Radiogr aphy 05/06/2021 8:20 AM MANAGER ED Impressions 05/06/2021 8:20 AM MANAGER ED 1. ??Interval removal of endotracheal tube. ??Remaining tubes and lines are appropriately positioned. 2. ??Similar-appearing cardiomegaly, pulmonary vascular congestion, and prominent bilateral interstitial markings suggestive of interstitial pulmonary edema. Electronically signed by: Richard Lopez II, D.O. Narrative 05/06/2021 8:20 AM MANAGER ED EXAMINATION: XR CHEST 1 VIEW DATE: 05/06/2021 [...] Resu lt * eGFR (05/06/2021 3:32 AM MANAGER ED) eGFR 103 mL/min/1.7 3 m2 [facility] Comment: [...] last reviewed 2020 Blood 05/06/2021 3:32 AM MANAGER ED 05/06/2021 4:00 AM MANAGER ED us Rhina Granados MD LAB BLOOD ORDERABLES Final R esult [facility] [address] Department [place] [address] * Magnesium (05/06/2021 3:32 AM MANAGER ED) Magnesium 2.0 1.4 - 2.5 mg/dL [facility] Blood 05/06/2021 3:32 AM MANAGER ED 05/06/2021 4:00 AM MANAGER ED us Silviano Yariel Brown [employer] LAB BLOOD ORDERABLES Final Result Performing Organization Address [facility] de Phone Number [facility] [place] [address] [facility] [address] [place], [place] [id number] * Phosphorus (05/06/2021 3:32 AM MANAGER ED) Phosphorus, pl 3.7 2.3 - 4.5 mg/dL [facility] Blood 05/06/2021 3:32 AM MANAGER ED 05/06/2021 4:00 AM MANAGER ED Silviano Saldivar Flaquito [employer] LAB BLOOD ORDERABLES Final Result Performing Organization Address [facility] de Phone Number [facility] DON [address] [address] [facility] [place] [address] * (ABNORMAL) CBC without differential (05/06/2021 3:32 AM MANAGER ED) WBC 14.6(H) 3.8 - 9.9 K/cumm [facility] Hgb 9.2(L) 13.0 - 17.5 g/dL [facility] Hct 27.9(L) 38.9 - 50.3 % [facility] Plt 204 150 - 400 K/cumm [facility] MPV 11.7 9.1 - 12.3 fL [facility] RBC 3.06(L) 4.30 - 5.80 M/cumm [facility] CH MCV 91.2 81.3 - 96.4 fL [facility] MCH 30.1 27.1 - 33.3 pg [facility] MCHC 33.0 32.3 - 35.7 g/dL [facility] RDW CV 14.6 11.1 - 14.9 % [facility] RDW SD 47.9 35.7 - 48.1 fL [facility] NRBC abs 0.00 0.00 - 0.01 K/cumm [facility] Blood 05/06/2021 3:32 AM MANAGER ED 05/06/2021 4:00 AM MANAGER ED Rhina Granados MD LAB BLOOD ORDERABLES Final R esult Performing Organization Address City/[facility]/ZIP Co de Phone Number [facility] DON [address] Department [place] [address] * (ABNORMAL) Basic metabolic panel (05/06/2021 3:32 AM MANAGER ED) Sodium 142 135 - 145 mmol/L [facility] Potassium, pl 3.7 3.3 - 4.9 mmol/L [facility] Chloride 106 97 - 110 mmol/L [facility] CO2 22 22 - 32 mmol/L [facility] Anion gap 14 2 - 15 mmol/L [facility] BUN 10 8 - 25 mg/dL [facility] Creatinine 0.71(L) 0.80 - 1.30 mg/dL [facility] Glucose 203(H) 70 - 199 mg/dL [facility] Comment: [...] 8.3(L) 8.5 - 10.3 mg/dL [facility] Blood 05/06/2021 3:32 AM MANAGER ED 05/06/2021 4:00 AM MANAGER ED Rhina Granados MD LAB BLOOD ORDERABLES Final R esult [facility] [place] [address] Department [place] [address] * (ABNORMAL) POCT glucose (05/05/2021 11:52 PM MANAGER ED) Glucose, POC 212(H) 70 - 199 mg/dL [facility] Blood 05/05/2021 11:5 2 PM MANAGER ED 05/05/2021 11:52 PM MANAGER ED us Nalini Clayton MD LAB POCT ORDERABLES - DEVICE Fin al Result Performing Organization Address City/State/[facility] [place] [address] [facility] Department [place] [address] * Critical Care (05/05/2021 11:05 PM MANAGER ED) Narrative Wally Aguilar DO - 05/05/2021 11:05 PM MANAGER ED Wally Aguilar, DO ? 05/13/2021 ??2:22 PM [...] plan with the ICU team and other medical/aws consultant staff, making frequent assessments and decisions [...] * (ABNORMAL) POCT glucose (05/05/2021 8:43 PM MANAGER ED) Glucose, POC 230(H) 70 - 199 mg/dL [facility] Blood 05/05/2021 8:43 PM MANAGER ED 05/05/2021 8:43 PM MANAGER ED Nalini Clayton MD LAB POCT ORDERABLES - DEVICE Fin al Result Performing Organization Address [facility] Co de Phone Number [facility] [address] [facility] [place] [address] * POCT glucose (05/05/2021 4:12 PM MANAGER ED) Glucose, POC 149 70 - 199 mg/dL [facility] Blood 05/05/2021 4:12 PM MANAGER ED 05/05/2021 4:12 PM MANAGER ED Nalini Clayton MD LAB POCT ORDERABLES - DEVICE Fin al Result Performing Organization Address [facility] de Phone Number [facility] [address] [facility] [place] [address] * eGFR (05/05/2021 4:05 PM MANAGER ED) eGFR 119 mL/min/1.7 3 m2 [facility] Comment: Interpretive Data Reference Interval [...] last reviewed 2020 Blood 05/05/2021 4:05 PM MANAGER ED 05/05/2021 4:39 PM MANAGER ED Rhina Granados MD LAB BLOOD ORDERABLES Final R esult Performing Organization Address City/[facility] Co de Phone Number [facility] [address] [place] [address] * Magnesium (05/05/2021 4:05 PM MANAGER ED) Magnesium 2.1 1.4 - 2.5 mg/dL [facility] Blood 05/05/2021 4:05 PM MANAGER ED 05/05/2021 4:31 PM MANAGER ED Rhina Granados MD LAB BLOOD ORDERABLES Final R [facility] Performing Organization Address [facility] Co de Phone Number [facility] [address] [place] [address] * (ABNORMAL) Basic metabolic panel (05/05/2021 4:05 PM MANAGER ED) Sodium 141 135 - 145 mmol/L [facility] CH Potassium, pl 3.7 3.3 - 4.9 mmol/L [facility] Chloride 107 97 - 110 mmol/L [facility] CO2 18(L) 22 - 32 mmol/L [facility] Anion gap 16(H) 2 - 15 mmol/L [facility] BUN 7(L) 8 - 25 mg/dL [facility] Creatinine 0.50(L) 0.80 - 1.30 mg/dL [facility] Comment:Icteric sample, test results may be affected. Glucose 153 70 - 199 mg/dL [facility] Comment: Interpretive [...] 2017. Calcium 8.2(L) 8.5 - 10.3 mg/dL [facility] Blood 05/05/2021 4:05 PM MANAGER ED 05/05/2021 4:31 PM MANAGER ED us Rhina Granados MD LAB BLOOD ORDERABLES Final R esult Performing Organization Address [facility] Co de Phone Number [facility] [address] Department of Laboratories [place] [phone] * (ABNORMAL) Blood gas, arterial (05/05/2021 4:05 PM MANAGER ED) pH, Art 7.43 7.35 - 7.45 [facility] [...] % [facility] Blood 05/05/2021 4:05 PM MANAGER ED 05/05/2021 4:32 PM MANAGER ED Rhina Granados MD LAB [place]LOOD [place] [address] [address] Department [place] [address] * Critical Care (05/05/2021 12:25 PM MANAGER ED) Narrative Frank Dugan MD - 05/05/2021 12:25 PM MANAGER ED Frank Dugan MD ? 05/05/2021 12:28 PM [...] plan with the ICU team and other medical/aws consultant staff, making frequent assessments and decisions [...] Result * POCT glucose (05/05/2021 12:07 PM MANAGER ED) Glucose, POC 137 70 - 199 mg/dL [facility] Blood 05/05/2021 12:0 7 PM MANAGER ED 05/05/2021 12:07 PM MANAGER ED us Nalini Clayton MD LAB POCT ORDERABLES - DEVICE Fin al Result [facility] [address] Department [place] [address] * eGFR (05/05/2021 12:04 PM MANAGER ED) eGFR 116 mL/min/1.7 3 m2 [facility] Comment: Interpretive Data Reference Interval [...] reviewed 2020 Blood 05/05/2021 12:0 4 PM MANAGER ED 05/05/2021 12:13 PM MANAGER ED Rhina Granados MD LAB BLOOD ORDERABLES Final R esult Performing Organization Address City/[facility] Co de Phone Number [facility] DON [address] [address] [facility] [place] [address] * Calcium, ionized (05/05/2021 12:04 PM MANAGER ED) Ca, ionized, bld 4.63 4.60 - 5.20 mg/dL [facility] Ca, ionized, bld, calc 4.74 4.60 - 5.20 mg/dL [facility] Blood 05/05/2021 12:0 4 PM MANAGER ED 05/05/2021 12:12 PM MANAGER ED Result [facility] Rhina Granados MD LAB BLOOD ORDERABLES Final R esult Performing Organization Address City/[facility] Co de Phone Number [facility] DON [address] [place] [address] * (ABNORMAL) Blood gas, arterial (05/05/2021 12:04 PM MANAGER ED) pH, Art 7.44 7.35 - 7.45 [facility] [...] [facility] Blood 05/05/2021 12:0 4 PM MANAGER ED 05/05/2021 12:12 PM MANAGER ED Rhina Granados MD LAB BLOOD ORDERABLES Final R esult [place] [address] [place] [address] * (ABNORMAL) Basic metabolic panel (05/05/2021 12:04 PM MANAGER ED) Sodium 141 135 - 145 mmol/L [facility] Potassium, pl 3.6 3.3 - 4.9 mmol/L [facility] Chloride 106 97 - 110 mmol/L [facility] CO2 20(L) 22 - 32 mmol/L [facility] Anion gap 15 2 - 15 mmol/L [facility] BUN 7(L) 8 - 25 mg/dL [facility] Creatinine 0.53(L) 0.80 - 1.30 mg/dL [facility] Comment:Icteric sample, test results may be affected. Glucose 163 70 - 199 mg/dL [facility] Comment: Interpretive Data Fasting glucose >/= 126 [...] mg/dL [facility] Blood 05/05/2021 12:0 4 PM MANAGER ED 05/05/2021 12:13 PM MANAGER ED Rhina Granados MD LAB BLOOD ORDERABLES Final [place] [address] [address] [place] [address] * Magnesium (05/05/2021 12:04 PM MANAGER ED) Magnesium 2.1 1.4 - 2.5 mg/dL [facility] Blood 05/05/2021 12:0 4 PM MANAGER ED 05/05/2021 12:13 PM MANAGER ED Rhina Granados MD LAB BLOOD ORDERABLES Final R esult [facility] [address] [place] [address] * (ABNORMAL) CBC without differential (05/05/2021 12:04 PM MANAGER ED) WBC 13.5(H) 3.8 - 9.9 K/cumm [facility] Hgb 9.8(L) 13.0 - 17.5 g/dL [facility] Hct 27.7(L) 38.9 - 50.3 % [facility] Plt 193 150 - 400 K/cumm [facility] MPV 11.5 9.1 - 12.3 fL [facility] RBC 3.19(L) 4.30 - 5.80 M/cumm [facility] [...] [facility] Blood 05/05/2021 12:0 4 PM MANAGER ED 05/05/2021 12:13 PM MANAGER ED us Rhina Granados MD LAB BLOOD ORDERABLES Final R esult [facility] [address] [place] [address] * POCT glucose (05/05/2021 11:14 AM MANAGER ED) Glucose, POC 119 70 - 199 mg/dL [facility] Blood 05/05/2021 11:1 4 AM MANAGER ED 05/05/2021 11:14 AM MANAGER ED us Nalini Clayton MD LAB POCT ORDERABLES - DEVICE Fin al Result Performing Organization Address [facility] Co de Phone Number [facility] DNO [address] [address] [facility] [place] [address] * POCT glucose (05/05/2021 10:19 AM MANAGER ED) Glucose, POC 136 70 - 199 mg/dL [facility] Blood 05/05/2021 10:1 9 AM MANAGER ED 05/05/2021 10:19 AM MANAGER ED us Nalini Clayton MD LAB POCT ORDERABLES - DEVICE Fin al Result Performing Organization Address [facility] Phone Number [place] [address] [address] [facility] [place] [address] * (ABNORMAL) Blood gas, arterial (05/05/2021 10:15 AM MANAGER ED) pH, Art 7.45 7.35 - 7.45 [facility] [...] - 95 % [facility] Blood 05/05/2021 10:1 5 AM MANAGER ED 05/05/2021 10:23 AM MANAGER ED us Nalini Clayton MD LAB BLOOD ORDERABLES Final Resul t Performing Organization Address [facility] de Phone Number [facility] DON [address] [address] [facility] [place] [address] * (ABNORMAL) Aerobic culture and gram stain Tracheal aspirate Lung (05/05/2021 9:53 AM MANAGER ED) Direct Specimen Exam Stain: Moderate polymorphonuclear leukocytes seen. Few squamous epithelial cells seen. Moderate mixed bacterial tirso seen on Gram stain. Predominant organism seen on Gram stain: Yeast [facility] Comment:Testing performed by : [facility], [address] [place]., [address] Report Final Report: Greater than or equal to 100,000 colonies/ml of Yeast Britta pneumonia is very rare and requires a histopathological diagnosis. ??The recovery of these organisms in routine culture, in most cases, only represents overgrowth of the organism secondary to antimicrobial therapy. Please contact the microbiology laboratory at [phone] if identification or susceptibility testing is clinically indicated. (.) [facility] Comment:Testing performed by : [facility], [address] [place]., [address] Organism YEAST [facility] Tracheal aspirate (Lung) 05/05/2021 9:53 AM MANAGER ED 05/05/2021 12:42 PM MANAGER ED Narrative [facility] - 05/07/2021 9:57 AM MANAGER ED Testing performed by [facility] Microbiology Laboratory ([phone]) Specimens submitted from normally sterile body sites [...] MICROBIOLOGY - GENERAL O RDERABLES Final Result [facility] [address] [facility] Department [place] [address] * POCT glucose (05/05/2021 9:09 AM MANAGER ED) Glucose, POC 119 70 - 199 mg/dL [facility] Blood 05/05/2021 9:09 AM MANAGER ED 05/05/2021 9:09 AM MANAGER ED us Nalini Clayton MD LAB POCT ORDERABLES - DEVICE Fin al Result Performing Organization Address [facility] de Phone Number [facility] [address] [address] [facility] [place] [address] * POCT glucose (05/05/2021 7:56 AM MANAGER ED) Glucose, POC 95 70 - 199 mg/dL [facility] Blood 05/05/2021 7:56 AM MANAGER ED 05/05/2021 7:56 AM MANAGER ED Nalini Clayton MD LAB POCT ORDERABLES - DEVICE Fin al Result Performing Organization Address [facility] Phone Number [facility] [address] [address] [facility] [place] [address] * Transfuse RBC (05/05/2021 7:03 AM MANAGER ED) Blood specimen (specimen) Rhina Granados MD BLOOD TRANSFUSION ORDERABLES Final Result Performing Organization Address [facility] Phone Number [facility] [address] [address] [facility] [place] [address] * (ABNORMAL) Blood gas, arterial (05/05/2021 6:50 AM MANAGER ED) pH, Art 7.41 7.35 - 7.45 [facility]ER [...] % [facility] Blood 05/05/2021 6:50 AM MANAGER ED 05/05/2021 6:55 AM MANAGER ED us Rhina Granados MD LAB BLOOD ORDERABLES Final R esult Performing Organization Address [facility]/ZIP Co de Phone Number [facility] DON [address] Department [place] [address] * POCT glucose (05/05/2021 6:45 AM MANAGER ED) Glucose, POC 111 70 - 199 mg/dL [facility] DON Blood 05/05/2021 6:45 AM MANAGER ED 05/05/2021 6:45 AM MANAGER ED us Naliin Clayton MD LAB POCT ORDERABLES - DEVICE Fin al Result [facility] [address] Department [place] [address] * XR Chest 1 View - Portable - in AM (05/05/2021 5:32 AM MANAGER ED) Anatomical Region Laterality Modality Body, Chest N/A Computed Radiogr aphy 05/05/2021 8:35 AM MANAGER ED Impressions 05/05/2021 8:35 AM MANAGER ED Increasing failure. Electronically signed by: Deacon Cummings M.D. Narrative 05/05/2021 8:35 AM MANAGER ED EXAMINATION: XR CHEST 1 VIEW DATE: 05/05/2021 [...] lt * POCT glucose (05/05/2021 5:07 AM MANAGER ED) Glucose, POC 123 70 - 199 mg/dL [facility] Blood 05/05/2021 5:07 AM MANAGER ED 05/05/2021 5:07 AM MANAGER ED us Nalini Clayton MD LAB POCT ORDERABLES - DEVICE Fin al Result [facility] [address] Department [place] [address] * (ABNORMAL) Blood gas, arterial (05/05/2021 4:41 AM MANAGER ED) pH, Art 7.42 7.35 - 7.45 [facility]ER [...] % [facility] Blood 05/05/2021 4:41 AM MANAGER ED 05/05/2021 4:46 AM MANAGER ED Rhina Granados MD LAB BLOOD ORDERABLES Final R esult [facility] [address] Department [place] [address] * eGFR (05/05/2021 4:19 AM MANAGER ED) eGFR 117 mL/min/1.7 3 m2 [facility] [...] last reviewed 2020 Blood 05/05/2021 4:19 AM MANAGER ED 05/05/2021 4:19 AM MANAGER ED us Nalini Clayton MD LAB BLOOD ORDERABLES Final Resul t Performing Organization Address City/[facility] Co de Phone Number [facility] DON [address] [place] [address] * Manual Differential (05/05/2021 4:19 AM MANAGER ED) Differential Auto [facility] RBC morphology Normal [facility] Platelet estimate Adequate [facility] Blood 05/05/2021 4:19 AM MANAGER ED 05/05/2021 4:19 AM MANAGER ED Rhina Granados MD LAB BLOOD ORDERABLES Final R esult Performing Organization Address [facility] Co de Phone Number [facility] [address] [place] [address] * (ABNORMAL) Differential, auto (05/05/2021 4:19 AM MANAGER ED) Neutrophil abs 11.1(H) 1.7 - 6.5 K/cumm [facility] Imm gran abs 0.1 0.0 - 0.1 K/cumm [facility] Lymphocyte abs 0.4(L) 0.8 - 3.3 K/cumm [facility] Monocyte abs 1.5(H) 0.2 - 0.8 K/cumm [facility] Eosinophil abs 0.0 0.0 - 0.5 K/cumm [facility] Basophil abs 0.1 0.0 - 0.1 K/cumm [facility] Neutrophil pct 84.2 % [facility] Comment: Interpretive Data Percent cell count reference ranges are not reported, since discordance with absolute values may lead to misinterpretation of CBC data. Current Interpretive Data was last revised on 2017. Imm gran pct 0.9 % [facility] Comment: Interpretive Data Percent cell count reference ranges are not reported, since discordance with absolute values may lead to misinterpretation of CBC data. Current Interpretive Data was last revised on 2017. Lymphocyte pct 3.1 % [facility] Comment: Interpretive Data Percent cell count reference ranges are not reported, since discordance with absolute values may lead to misinterpretation of CBC data. Current Interpretive Data was last revised on 2017. Monocyte pct 11.2 % [facility] Comment: Interpretive Data Percent cell count reference ranges are not reported, since discordance with absolute values may lead to misinterpretation of CBC data. Current Interpretive Data was last revised on 2017. Eosinophil pct 0.2 % [facility] Comment: Interpretive Data Percent cell count reference ranges are not reported, since discordance with absolute values may lead to misinterpretation of CBC data. Current Interpretive Data was last revised on 2017. Basophil pct 0.4 % [facility] Comment: Interpretive Data Percent cell count reference ranges are not reported, since discordance with absolute values may lead to misinterpretation of CBC data. Current Interpretive Data was last revised on 2017. Blood 05/05/2021 4:19 AM MANAGER ED 05/05/2021 4:19 AM MANAGER ED us Rhina Granados MD LAB BLOOD ORDERABLES Final R esult [facility] [address] Department [place] [address] * (ABNORMAL) CBC with auto differential (05/05/2021 4:19 AM MANAGER ED) WBC 13.2(H) 3.8 - 9.9 K/cumm [facility] Hgb 10.7(L) 13.0 - 17.5 g/dL [facility] Comment:Hemoglobin delta due to apparent blood transfusion. Hct 30.4(L) 38.9 - 50.3 % [facility] Plt 191 150 - 400 K/cumm [facility] MPV 11.2 9.1 - 12.3 fL [facility] RBC 3.46(L) 4.30 - 5.80 M/cumm [facility] MCV 87.9 81.3 - 96.4 fL [facility] MCH 30.9 27.1 - 33.3 pg [facility] MCHC 35.2 32.3 - 35.7 g/dL [facility] RDW CV 14.1 11.1 - 14.9 % [facility] RDW SD 44.9 35.7 - 48.1 fL [facility] NRBC abs 0.00 0.00 - 0.01 K/cumm [facility] Blood 05/05/2021 4:19 AM MANAGER ED 05/05/2021 4:19 AM MANAGER ED Rhina Granados MD LAB BLOOD ORDERABLES Edited Result - Final Performing Organization Address City/[facility]/ZIP Co de Phone Number [facility] [address] Department [address] [place], [place] [id number] * Magnesium (05/05/2021 4:19 AM MANAGER ED) Pathologist [facility] Magnesium 1.9 1.4 - 2.5 mg/dL [facility] Blood 05/05/2021 4:19 AM MANAGER ED 05/05/2021 4:19 AM MANAGER ED Silviano Huddleston NP LAB BLOOD ORDERABLES Final Result [facility] [address] Department [address] [place], [place] [id number] * Phosphorus (05/05/2021 4:19 AM MANAGER ED) Phosphorus, pl 3.4 2.3 - 4.5 mg/dL [facility] Blood 05/05/2021 4:19 AM MANAGER ED 05/05/2021 4:19 AM MANAGER ED us Silviano Huddleston [employer] LAB BLOOD ORDERABLES Final Result Performing Organization Address City/[facility]/ZIP Co de Phone Number [facility] [address] Department [place] [address] * (ABNORMAL) Basic metabolic panel (05/05/2021 4:19 AM MANAGER ED) Sodium 143 135 - 145 mmol/L [facility] Potassium, pl 4.4 3.3 - 4.9 mmol/L [facility] Chloride 111(H) 97 - 110 mmol/L [facility] CO2 21(L) 22 - 32 mmol/L [facility] Anion gap 11 2 - 15 mmol/L [facility] BUN 7(L) 8 - 25 mg/dL [facility] Creatinine 0.52(L) 0.80 - 1.30 mg/dL [facility] Glucose 126 70 - 199 mg/dL [facility] Comment: [...] 2017. Calcium 7.0(L) 8.5 - 10.3 mg/dL [facility] Blood 05/05/2021 4:19 AM MANAGER ED 05/05/2021 4:19 AM MANAGER ED Rhina Granados MD LAB BLOOD ORDERABLES Final R esult Performing Organization Address City/[facility]/ZIP Co de Phone Number [facility] DON [address] [facility] [place] [address] * Oxyhemoglobin, pulmonary artery (05/05/2021 4:08 AM MANAGER ED) Oxyhemoglobin, PA 58.8 % [facility] Comment: Interpretive Data No reference range established. Current interpretive data was last revised 2019. Blood 05/05/2021 4:08 AM MANAGER ED 05/05/2021 4:17 AM MANAGER ED Rhina Granados MD LAB BLOOD ORDERABLES Final R esult Performing Organization Address [facility]/ZIP Co de Phone Number [facility] [place] [address] [place] [address] * POCT glucose (05/05/2021 3:59 AM MANAGER ED) Glucose, POC 122 70 - 199 mg/dL [facility] Blood 05/05/2021 3:59 AM MANAGER ED 05/05/2021 3:59 AM MANAGER ED Nalini Clayton MD LAB POCT ORDERABLES - DEVICE Fin al Result Performing Organization Address [facility] Co de Phone Number [facility] DON [address] [facility] [place] [address] * Transfuse RBC (05/05/2021 3:35 AM MANAGER ED) Blood specimen (specimen) Rhina Granados MD BLOOD TRANSFUSION ORDERABLES Final Result Performing Organization Address [facility]/ZIP Co de Phone Number [facility] DON [address] [place] [address] * POCT glucose (05/05/2021 2:55 AM MANAGER ED) Glucose, POC 141 70 - 199 mg/dL [facility] Blood 05/05/2021 2:55 AM MANAGER ED 05/05/2021 2:55 AM MANAGER ED us Nalini Clayton MD LAB POCT ORDERABLES - DEVICE Fin al Result Performing Organization Address [facility] de Phone Number [facility] [address] [facility] [place] [address] * Oxyhemoglobin, pulmonary artery (05/05/2021 2:32 AM MANAGER ED) Oxyhemoglobin, PA 40.0 % [facility] Comment: Interpretive Data No reference range established. Current interpretive data was last revised 2019. Blood 05/05/2021 2:32 AM MANAGER ED 05/05/2021 2:40 AM MANAGER ED Rhina Granados MD LAB BLOOD ORDERABLES Final R esult Performing Organization Address [facility] de Phone Number [facility] [address] [place] [address] [place] [id number] * eGFR (05/05/2021 2:25 AM MANAGER ED) eGFR 107 mL/min/1.7 3 m2 [facility] Comment: Interpretive Data [...] last reviewed 2020 Blood 05/05/2021 2:25 AM MANAGER ED 05/05/2021 2:29 AM MANAGER ED Rhina Granados MD LAB BLOOD ORDERABLES Final R esult Performing Organization Address City/[facility]/ZIP Co de Phone Number [facility] [address] [place], [place] [id number] * (ABNORMAL) Magnesium (05/05/2021 2:25 AM MANAGER ED) Magnesium 2.6(H) 1.4 - 2.5 mg/dL [facility] Blood 05/05/2021 2:25 AM MANAGER ED 05/05/2021 2:28 AM MANAGER ED Rhina Granados MD LAB BLOOD ORDERABLES Final R esult Performing Organization Address City/[facility] Co de Phone Number [facility]K [address] [place] [address] * (ABNORMAL) Basic metabolic panel (05/05/2021 2:25 AM MANAGER ED) Sodium 142 135 - 145 mmol/L [facility] Potassium, pl 4.0 3.3 - 4.9 mmol/L [facility] Chloride 110 97 - 110 mmol/L [facility] CH CO2 22 22 - 32 mmol/L [facility] CH Anion gap 10 2 - 15 mmol/L [facility] BUN 7(L) 8 - 25 mg/dL [facility] Creatinine 0.64(L) 0.80 - 1.30 mg/dL [facility] [...] 2017. Calcium 8.2(L) 8.5 - 10.3 mg/dL [facility] Blood 05/05/2021 2:25 AM MANAGER ED 05/05/2021 2:28 AM MANAGER ED Rhina Granados MD LAB BLOOD ORDERABLES Final R esult Performing Organization Address City/[facility]/ZIP Co de Phone Number [facility] [address] [facility] [place] [address] * Lactate (05/05/2021 2:25 AM MANAGER ED) Lactate 1.6 0.7 - 2.0 mmol/L [facility] Blood 05/05/2021 2:25 AM MANAGER ED 05/05/2021 2:28 AM MANAGER ED Rhina Granados MD LAB BLOOD ORDERABLES Final R esult Performing Organization Address [facility] Co de Phone Number [facility] [address] [place] [address] * Calcium, ionized (05/05/2021 2:25 AM MANAGER ED) Ca, ionized, bld 4.72 4.60 - 5.20 mg/dL [facility] Ca, ionized, bld, calc 4.80 4.60 - 5.20 mg/dL [facility] Blood 05/05/2021 2:25 AM MANAGER ED 05/05/2021 2:28 AM MANAGER ED Rhina Granados MD LAB BLOOD ORDERABLES Final R esult Performing Organization Address City/[facility] Co de Phone Number [facility] [address] [facility] [place] [address] * (ABNORMAL) Blood gas, arterial (05/05/2021 2:25 AM MANAGER ED) pH, Art 7.43 7.35 - 7.45 [facility]ER [...] % [facility] Blood 05/05/2021 2:25 AM MANAGER ED 05/05/2021 2:28 AM MANAGER ED us Rhina Granados MD LAB BLOOD ORDERABLES Final R esult Performing Organization Address [facility]/ZIP Co de Phone Number [facility] [address] [place] [address] * Transfuse RBC (05/05/2021 1:38 AM MANAGER ED) Blood specimen (specimen) us Rhina Granados MD BLOOD TRANSFUSION ORDERABLES Final Result Performing Organization Address [facility]/ZIP Co de Phone Number [facility] [address] [place] [address] * Transfuse RBC: 1 Units (05/05/2021 1:38 AM MANAGER ED) Blood specimen (specimen) us Rhina Granados MD BLOOD TRANSFUSION ORDERABLES Final Result * POCT glucose (05/05/2021 1:07 AM MANAGER ED) Glucose, POC 103 70 - 199 mg/dL [facility] Blood 05/05/2021 1:07 AM MANAGER ED 05/05/2021 1:07 AM MANAGER ED us Nalini Clayton MD LAB POCT ORDERABLES - DEVICE Fin al Result Performing Organization Address City/[facility]/ZIP Co de Phone Number [facility] DON [address] [place] [address] * eGFR (05/05/2021 12:21 AM MANAGER ED) eGFR 118 mL/min/1.7 3 m2 [facility] Comment: Interpretive Data Reference Interval [...] reviewed 2020 Blood 05/05/2021 12:2 1 AM MANAGER ED 05/05/2021 12:21 AM MANAGER ED us Rhina Granados MD LAB BLOOD ORDERABLES Final R esult [facility] DON [address] [place] [address] * (ABNORMAL) Protime-INR (05/05/2021 12:21 AM MANAGER ED) PT 14.4(H) 9.5 - 13.6 sec [facility] INR 1.3(H) 0.9 - 1.2 [facility] Comment: Interpretive data Oral anticoagulant therapeutic ranges: Venous thromboembolism prophylaxis or treatment: 2.0-3.0 CARDIOLOGY Standard range: 2.0-3.0 High-intensity range: 2.5-3.5 Refer to indication-specific guidelines for appropriate target ranges for prosthetic heart valve replacement. Current interpretive data was last revised on 2019. Blood 05/05/2021 12:2 1 AM MANAGER ED 05/05/2021 12:21 AM MANAGER ED Rhina Granados MD LAB BLOOD ORDERABLES Final R [facility] Performing Organization Address [facility] de Phone Number [facility] [address] [place] [address] * aPTT (05/05/2021 12:21 AM MANAGER ED) aPTT 33 27 - 37 sec [facility] Comment: Interpretive Data Therapeutic heparin range: 60.0 - 94.0 seconds. Based on correlation with therapeutic heparin activity range of 0.3-0.7 Units/mL. Current interpretive data was last revised on 2020. Blood 05/05/2021 12:2 1 AM MANAGER ED 05/05/2021 12:21 AM MANAGER ED Rhina Granados MD LAB BLOOD ORDERABLES Final R esult Performing Organization Address [facility] Co de Phone Number [facility] [address] [employer] [place], [place] [id number] * (ABNORMAL) CBC without differential (05/05/2021 12:21 AM MANAGER ED) WBC 14.3(H) 3.8 - 9.9 K/cumm [facility] Hgb 7.6(L) 13.0 - 17.5 g/dL [facility] Hct 22.6(L) 38.9 - 50.3 % [facility] Plt 206 150 - 400 K/cumm [facility] MPV 11.4 9.1 - 12.3 fL [facility] RBC 2.48(L) 4.30 - 5.80 M/cumm [facility] MCV 91.1 81.3 - 96.4 fL [facility] MCH 30.6 27.1 - 33.3 pg [facility] MCHC 33.6 32.3 - 35.7 g/dL [facility] RDW CV 14.1 11.1 - 14.9 % [facility] RDW SD 46.9 35.7 - 48.1 fL [facility] NRBC abs 0.00 0.00 - 0.01 K/cumm [facility] Blood 05/05/2021 12:2 1 AM MANAGER ED 05/05/2021 12:21 AM MANAGER ED Rhina Granados MD LAB BLOOD ORDERABLES Final R esult [facility] [address] Department of Laboratories [place] [phone] * (ABNORMAL) Basic metabolic panel (05/05/2021 12:21 AM MANAGER ED) Sodium 142 135 - 145 mmol/L [facility] Potassium, pl 3.9 3.3 - 4.9 mmol/L [facility] Chloride 109 97 - 110 mmol/L [facility] CO2 24 22 - 32 mmol/L [facility] Anion gap 9 2 - 15 mmol/L [facility] BUN 7(L) 8 - 25 mg/dL [facility] Creatinine 0.51(L) 0.80 - 1.30 mg/dL [facility] Glucose 97 70 - 199 mg/dL [facility] Comment: Interpretive Data Fasting glucose [...] 8.4(L) 8.5 - 10.3 mg/dL [facility] Blood 05/05/2021 12:2 1 AM MANAGER ED 05/05/2021 12:21 AM MANAGER ED Rhina Granados MD LAB BLOOD ORDERABLES Final R esult Performing Organization Address [facility] de Phone Number [facility] DON [address] [facility] [place] [address] * POCT glucose (05/04/2021 11:53 PM MANAGER ED) Glucose, POC 96 70 - 199 mg/dL [facility] Blood 05/04/2021 11:5 3 PM MANAGER ED 05/04/2021 11:53 PM MANAGER ED Nalini Clayton MD LAB POCT ORDERABLES - DEVICE Fin al Result Performing Organization Address [facility] de Phone Number [facility] DON [address] [facility] [place] [address] * (ABNORMAL) Calcium, ionized (05/04/2021 11:49 PM MANAGER ED) Ca, ionized, bld 4.48(L) 4.60 - 5.20 mg/dL [facility] Ca, ionized, bld, calc 4.53(L) 4.60 - 5.20 mg/dL [facility] Blood 05/04/2021 11:4 9 PM MANAGER ED 05/05/2021 12:14 AM MANAGER ED Rhina Granados MD LAB BLOOD ORDERABLES Final R esult Performing Organization Address [facility] Co de Phone Number [facility] DON [address] [facility] [place] [address] * (ABNORMAL) Blood gas, arterial (05/04/2021 11:49 PM MANAGER ED) pH, Art 7.42 7.35 - 7.45 [facility] [...] [facility] Blood 05/04/2021 11:4 9 PM MANAGER ED 05/05/2021 12:14 AM MANAGER ED Rhina Granados MD LAB BLOOD ORDERABLES Final R esult Performing Organization Address City/[facility]/ZIP Co de Phone Number [facility] DON [address] [address] [facility] [place] [address] * POCT glucose (05/04/2021 10:59 PM MANAGER ED) Pathologist [facility] Glucose, POC 122 70 - 199 mg/dL [facility] Blood 05/04/2021 10:5 9 PM MANAGER ED 05/04/2021 10:59 PM MANAGER ED Nalini Clayton MD LAB POCT ORDERABLES - DEVICE Fin al Result Performing Organization Address [facility] Co de Phone Number [facility] DON [address] [address] [facility] [place] [address] * Prepare RBC: 1 Units (05/04/2021 9:56 PM MANAGER ED) Product code [id number] [facility] Unit Number [id number] [facility] Product Blood Type APOS [facility] CH Dispense Status PRESUMED TRANSFUSED [facility] Blood 05/04/2021 9:56 PM MANAGER ED Narrative [facility] CH - 05/05/2021 10:15 AM MANAGER ED Are special requirements needed? (all products are leukoreduced)->No Date required:-20210504 LRRBC # of [id number] Reasons:-Active bleeding, Hgb <8 g/dL} Rhina Granados MD BLOOD BANK PRODUCT ORDERABLE S Final Result Performing Organization Address City/[facility]/ZIP Co de Phone Number [facility] [address] [facility] [place] [address] * POCT glucose (05/04/2021 9:39 PM MANAGER ED) Glucose, POC 139 70 - 199 mg/dL [facility] Blood 05/04/2021 9:39 PM MANAGER ED 05/04/2021 9:39 PM MANAGER ED Nalini Clayton MD LAB POCT ORDERABLES - DEVICE Fin al Result Performing Organization Address [facility] Co de Phone Number [facility] [address] [place] [address] * eGFR (05/04/2021 9:35 PM MANAGER ED) eGFR 113 mL/min/1.7 3 m2 [facility] Comment: Interpretive Data Reference Interval [...] last reviewed 2020 Blood 05/04/2021 9:35 PM MANAGER ED 05/04/2021 9:35 PM MANAGER ED us Rhina Granados MD LAB BLOOD ORDERABLES Final R esult Performing Organization Address [facility] Co de Phone Number [facility] [address] [address] [facility] [place] [address] * aPTT (05/04/2021 9:35 PM MANAGER ED) aPTT 30 27 - 37 sec [facility] Comment: Interpretive Data Therapeutic heparin range: 60.0 - 94.0 seconds. Based on correlation with therapeutic heparin activity range of 0.3-0.7 Units/mL. Current interpretive data was last revised on 2020. Blood 05/04/2021 9:35 PM MANAGER ED 05/04/2021 9:35 PM MANAGER ED Rhina Granados MD LAB BLOOD ORDERABLES Final R esult Performing Organization Address [facility] de Phone Number [facility] [address] [facility] [place] [address] * (ABNORMAL) Protime-INR (05/04/2021 9:35 PM MANAGER ED) PT 14.8(H) 9.5 - 13.6 sec [facility] INR 1.3(H) 0.9 - 1.2 [facility] Comment: Interpretive data Oral anticoagulant therapeutic ranges: Venous thromboembolism prophylaxis or treatment: 2.0-3.0 CARDIOLOGY Standard range: 2.0-3.0 High-intensity range: 2.5-3.5 Refer to indication-specific guidelines for appropriate target ranges for prosthetic heart valve replacement. Current interpretive data was last revised on 2019. Blood 05/04/2021 9:35 PM MANAGER ED 05/04/2021 9:35 PM MANAGER ED Result [facility] Rhina Granados MD LAB BLOOD ORDERABLES Final R esult Performing Organization Address [facility] Co de Phone Number [facility] [address] [place] [address] * (ABNORMAL) CBC without differential (05/04/2021 9:35 PM MANAGER ED) WBC 19.0(H) 3.8 - 9.9 K/cumm [facility] Hgb 7.2(L) 13.0 - 17.5 g/dL [facility] Comment:Hemoglobin delta due to active bleeding. Hemoglobin delta due to surgical procedure. Hct 21.2(L) 38.9 - 50.3 % [facility] Plt 215 150 - 400 K/cumm [facility] MPV 10.9 9.1 - 12.3 fL [facility] RBC 2.34(L) 4.30 - 5.80 M/cumm [facility] MCV 90.6 81.3 - 96.4 fL [facility] MCH 30.8 27.1 - 33.3 pg [facility] MCHC 34.0 32.3 - 35.7 g/dL [facility] RDW CV 13.9 11.1 - 14.9 % [facility] RDW SD 46.4 35.7 - 48.1 fL [facility] NRBC abs 0.00 0.00 - 0.01 K/cumm [facility] Blood 05/04/2021 9:35 PM MANAGER ED 05/04/2021 9:35 PM MANAGER ED us Rhina Granados MD LAB BLOOD ORDERABLES Final R esult Performing Organization Address City/[facility] Co de Phone Number [facility] DON [address] [place] [address] * Magnesium (05/04/2021 9:35 PM MANAGER ED) Magnesium 2.4 1.4 - 2.5 mg/dL [facility] Blood 05/04/2021 9:35 PM MANAGER ED 05/04/2021 9:35 PM MANAGER ED Rhina Granados MD LAB BLOOD ORDERABLES Final R esult [facility] [place] [address] [place] [address] * (ABNORMAL) Basic metabolic panel (05/04/2021 9:35 PM MANAGER ED) Sodium 141 135 - 145 mmol/L [facility] Potassium, pl 3.3 3.3 - 4.9 mmol/L [facility] Chloride 106 97 - 110 mmol/L [facility] CO2 26 22 - 32 mmol/L [facility] Anion gap 9 2 - 15 mmol/L [facility] BUN 7(L) 8 - 25 mg/dL [facility] Creatinine 0.56(L) 0.80 - 1.30 mg/dL [facility] Glucose 165 70 - 199 mg/dL [facility] Comment: [...] 2017. Calcium 7.7(L) 8.5 - 10.3 mg/dL [facility] Blood 05/04/2021 9:35 PM MANAGER ED 05/04/2021 9:35 PM MANAGER ED Rhina Granados MD LAB BLOOD ORDERABLES Final R esult Performing Organization Address City/[facility]/ZIP Co de Phone Number [facility] DON [address] [place] [address] * (ABNORMAL) Blood gas, arterial (05/04/2021 9:34 PM MANAGER ED) pH, Art 7.33(L) 7.35 - 7.45 [facility] [...] % [facility] Blood 05/04/2021 9:34 PM MANAGER ED 05/04/2021 9:34 PM MANAGER ED Rhina Granados MD LAB BLOOD ORDERABLES Final R esult [facility] [place]OR[place] Department [place] [address] * (ABNORMAL) Calcium, ionized (05/04/2021 9:34 PM MANAGER ED) Ca, ionized, bld 4.12(L) 4.60 - 5.20 mg/dL [facility] Ca, ionized, bld, calc 3.97(L) 4.60 - 5.20 mg/dL [facility] Blood 05/04/2021 9:34 PM MANAGER ED 05/04/2021 9:34 PM MANAGER ED us Rhina Granados MD LAB BLOOD ORDERABLES Final R esult Performing Organization Address City/[facility] Co de Phone Number [facility] DON [address] [place] [address] * XR Chest 1 Vw Portable (05/04/2021 8:53 PM MANAGER ED) Anatomical Region Laterality Modality Body, Chest N/A Computed Radiogr aphy 05/05/2021 8:32 AM MANAGER ED Impressions 05/05/2021 8:32 AM MANAGER ED Tube placements with postsurgical changes with cardiomegaly with interstitial lung disease and mild failure with no pneumothorax. Electronically signed by: Deacon Cummings M.D. Narrative 05/05/2021 8:32 AM MANAGER ED EXAMINATION: XR CHEST 1 VIEW DATE: 05/04/2021 8:40 PM HISTORY: 60-year-old man coronary artery bypass follow-up FINDINGS:Compared with the study of earlier the same day, postsurgical changes now evident within the heart and mediastinum with cardiomegaly. Interval placement of endotracheal tube, nasogastric tube, Altha-Radha catheter, left thoracostomy tube and mediastinal drain [...] Interval placement of endotracheal tube, nasogastric tube, Altha-Radha catheter, left thoracostomy tube and mediastinal drain [...] * (ABNORMAL) POCT glucose (05/04/2021 8:22 PM MANAGER ED) [facility] Glucose, POC 203(H) 70 - 199 mg/dL [facility] DON Blood 05/04/2021 8:22 PM MANAGER ED 05/04/2021 8:22 PM MANAGER ED us Nalini Clayton MD LAB POCT ORDERABLES - DEVICE Fin al Result [facility]K [address] [place] [address] * Critical Care (05/04/2021 8:13 PM MANAGER ED) Narrative Wally Aguilar, - 05/04/2021 8:13 PM MANAGER ED Wally Aguilar, DO ? 05/05/2021 12:46 AM [...] plan with the ICU team and other medical/aws consultant staff, making frequent assessments and decisions [...] Transfuse cryoprecipitate (pooled units) (05/04/2021 8:12 PM MANAGER ED) Blood specimen (specimen) us Can Jones MD BLOOD TRANSFUSION ORD ERABLES Final Result Performing Organization Address [facility] Co de Phone Number [facility] DON [address] [address] [facility] [place] [address] * Transfuse plasma (05/04/2021 7:49 PM MANAGER ED) Blood specimen (specimen) Can Jones MD BLOOD TRANSFUSION ORD ERABLES Final Result Performing Organization Address [facility] Co de Phone Number [facility] DON [address] [address] [facility] [place] [address] * Transfuse platelets (05/04/2021 7:29 PM MANAGER ED) Blood specimen (specimen) Can Jones MD BLOOD TRANSFUSION ORD ERABLES Final Result Performing Organization Address [facility] de Phone Number [facility]K DON [address] [place] [address] * (ABNORMAL) POC Blood Gas and Chemistries, Arterial - (05/04/2021 7:28 PM MANAGER ED) pH, Art POC 7.32(L) 7.35 - 7.45 [...] g/dL [facility] Blood 05/04/2021 7:28 PM MANAGER ED 05/04/2021 7:28 PM MANAGER ED Nalini Clayton MD LAB POCT ORDERABLES - DEVICE Fin al Result [facility] DON [address] [place] [address] * Prepare cryoprecipitate (pooled units): 2 Units (05/04/2021 6:54 PM MANAGER ED) Product code [id number] [facility] Unit Number [id number] [facility] Product Blood Type OPOS [facility] Dispense Status PRESUMED TRANSFUSED [facility] Product code [id number] [facility] Unit Number [id number] [facility] Product Blood Type APOS [facility] CH Dispense Status PRESUMED TRANSFUSED [facility] Blood (Blood, Venous) 05/04/2021 6:54 PM MANAGER ED Narrative [facility] - 05/05/2021 10:15 AM MANAGER ED Other indication->CABG with recent TURP Cryo # of [id number] Reasons:-Other (Specify)} Rhina Granados MD BLOOD BANK PRODUCT ORDERABLE S Final Result [facility] DON [address] [place] [address] * (ABNORMAL) POC Blood Gas and Chemistries, Arterial - (05/04/2021 6:53 PM MANAGER ED) pH, Art POC 7.34(L) 7.35 - 7.45 [...] g/dL [facility] Blood 05/04/2021 6:53 PM MANAGER ED 05/04/2021 6:53 PM MANAGER ED Nalini Clayton MD LAB POCT ORDERABLES - DEVICE Fin al Result Performing Organization Address [facility] Co de Phone Number [facility] DON [address] [place] [address] * Transfuse platelets (05/04/2021 6:48 PM MANAGER ED) Blood specimen (specimen) Can Jones MD BLOOD TRANSFUSION ORD ERABLES Final Result [facility] DON [address] [facility] [place] [address] * Transfuse plasma (05/04/2021 6:41 PM MANAGER ED) Blood specimen (specimen) Can Jones MD BLOOD TRANSFUSION ORD ERABLES Final Result Performing Organization Address [facility] Co de Phone Number [facility]K DON [address] [address] * (ABNORMAL) POC Blood Gas and Chemistries, Arterial - (05/04/2021 6:12 PM MANAGER ED) pH, Art POC 7.36 7.35 - 7.45 [...] g/dL [facility] Blood 05/04/2021 6:12 PM MANAGER ED 05/04/2021 6:12 PM MANAGER ED us Nalini lCayton MD LAB POCT ORDERABLES - DEVICE Fin al Result [facility] [address] [place] [address] * Platelet count (05/04/2021 5:53 PM MANAGER ED) Plt 230 150 - 400 K/cumm [facility] Blood 05/04/2021 5:53 PM MANAGER ED 05/04/2021 6:00 PM MANAGER ED us Rhina Granados MD LAB BLOOD ORDERABLES Final R esult [facility] DON [address] [place] [address] * (ABNORMAL) POC Blood Gas and Chemistries, Arterial - (05/04/2021 5:43 PM MANAGER ED) [facility] pH, Art POC 7.37 7.35 - 7.45 [...] g/dL [facility] Blood 05/04/2021 5:43 PM MANAGER ED 05/04/2021 5:43 PM MANAGER ED us Nalini Clayton MD LAB POCT ORDERABLES - DEVICE Fin al Result [facility] DON [address] [place] [address] * Prepare RBC: 4 Units (05/04/2021 5:43 PM MANAGER ED) [facility] Product code [id number] [facility] CH Unit Number [id number] 9-5 [facility] Product Blood Type APOS [facility] CH Dispense Status RETURNED [facility]ERNER CH Product code [id number] [facility] CH Unit Number [id number] 9-C [facility] CH Product Blood Type APOS CERNER CH Dispense Status RETURNED [facility] CH Product code [id number] [facility] CH Unit Number [id number] 6-Y [facility] CH Product Blood Type APOS [facility] CH Dispense Status RETURNED [facility] Product code [id number] [facility] Unit Number [id number] 3-* [facility] Product Blood Type APOS [facility] CH Dispense Status RETURNED [facility] Blood 05/04/2021 5:43 PM MANAGER ED Narrative [facility] - 05/06/2021 12:13 AM MANAGER ED Are special requirements needed? (all products are leukoreduced)->No Date required:-20210504 LRRBC # of [id number]-[id number] Reasons:-Intra-op transfusion} us Rhina Granados MD BLOOD BANK PRODUCT ORDERABLE S Final Result Performing Organization Address City/[facility]/ZIP Co de Phone Number [facility] [address] [place] [address] * Transfuse RBC (05/04/2021 5:23 PM MANAGER ED) Blood specimen (specimen) Can Jones MD BLOOD TRANSFUSION ORD ERABLES Final Result [facility] DON [address] [place] [address] * (ABNORMAL) POC Blood Gas and Chemistries, Arterial - (05/04/2021 5:05 PM MANAGER ED) Pathologist [facility] pH, Art POC 7.34(L) 7.35 - 7.45 [...] g/dL [facility] Blood 05/04/2021 5:05 PM MANAGER ED 05/04/2021 5:05 PM MANAGER ED Nalini Clayton MD LAB POCT ORDERABLES - DEVICE Fin al Result Performing Organization Address [facility] Co de Phone Number [facility] [address] [place] [address] * Transfuse RBC (05/04/2021 4:27 PM MANAGER ED) Blood specimen (specimen) Can Jones MD BLOOD TRANSFUSION ORD ERABLES Final Result [facility] [address] [place] [address] * (ABNORMAL) POC Blood Gas and Chemistries, Arterial - (05/04/2021 4:14 PM MANAGER ED) pH, Art POC 7.33(L) 7.35 - 7.45 [...] g/dL [facility] Blood 05/04/2021 4:14 PM MANAGER ED 05/04/2021 4:14 PM MANAGER ED us Nalini Clayton MD LAB POCT ORDERABLES - DEVICE Fin al Result [facility] DON [address] [place] [address] * (ABNORMAL) POC Blood Gas and Chemistries, Arterial - (05/04/2021 3:30 PM MANAGER ED) pH, Art POC 7.29(L) 7.35 - 7.45 [...] g/dL [facility] Blood 05/04/2021 3:30 PM MANAGER ED 05/04/2021 3:30 PM MANAGER ED Nalini Clayton MD LAB POCT ORDERABLES - DEVICE Fin al Result Performing Organization Address [facility] Co de Phone Number [facility]K DON [address] [address] * Prepare plasma: 2 Units (05/04/2021 3:25 PM MANAGER ED) Product code [id number] [facility] Unit Number [id number] [facility] Product Blood Type APOS [facility] Dispense Status PRESUMED TRANSFUSED [facility] Product code [id number] [facility] Unit Number [id number] [facility] Product Blood Type APOS [facility] Dispense Status PRESUMED TRANSFUSED [facility] Blood (Blood, Venous) 05/04/2021 3:25 PM MANAGER ED Narrative [facility] - 05/04/2021 10:15 PM MANAGER ED Please have at least two thawed for end of case. ??Thank you! Specify Procedure:->CABG Date required:-[id number] FFP # of Units:-2-Units Reasons:-Hold for procedure (specify procedure)} Rhina Granados MD BLOOD BANK PRODUCT ORDERABLE S Final Result Performing Organization Address [facility] Co de Phone Number HENRIK DON [address] [address] [facility] [place] [address] * (ABNORMAL) POC Blood Gas and Chemistries, Arterial - (05/04/2021 2:21 PM MANAGER ED) pH, Art POC 7.30(L) 7.35 - 7.45 [...] g/dL [facility] CH Blood 05/04/2021 2:21 PM MANAGER ED 05/04/2021 2:21 PM MANAGER ED Nalini Clayton MD LAB POCT ORDERABLES - DEVICE Fin al Result [facility] [address] [address] Department [place] [address] * POCT glucose (05/04/2021 11:54 AM MANAGER ED) Glucose, POC 171 70 - 199 mg/dL [facility] Blood 05/04/2021 11:5 4 AM MANAGER ED 05/04/2021 11:54 AM MANAGER ED us Nalini Clayton MD LAB POCT ORDERABLES - DEVICE Fin al Result Performing Organization Address City/State/ZIP Co nh Phone Number HENRIK [address] [facility] Department [place] [address] * Critical Care (05/04/2021 10:31 AM MANAGER ED) Narrative Frank Dugan MD - 05/04/2021 10:31 AM MANAGER ED Frank Dugan MD ? 05/04/2021 10:35 AM [...] plan with the ICU team and other medical/aws consultant staff, making frequent assessments and decisions [...] (ABNORMAL) Urinalysis, microscopic only (05/04/2021 10:13 AM MANAGER ED) WBC, ur 11-20(A) 0 - 5 /HPF [facility] RBC, ur >50(A) 0 - 2 /HPF [facility] Urine 05/04/2021 10:1 3 AM MANAGER ED 05/04/2021 10:17 AM MANAGER ED us Rhina Granados MD LAB URINE ORDERABLES Final R esult SHARIFANER [address] [address] Department [place] [address] * (ABNORMAL) Urinalysis reflex to microscopic (05/04/2021 10:13 AM MANAGER ED) Color, ur Red(A) Yellow [facility] Clarity, [...] [facility] Urine 05/04/2021 10:1 3 AM MANAGER ED 05/04/2021 10:17 AM MANAGER ED Narrative [facility] - 05/04/2021 10:46 AM MANAGER ED ?? Urine pH is affected by diet, medications, systemic acid-base disturbances, and renal tubular function. ??pH may affect urinary stone formation. ??For example, urine pH below 6.0 may help reduce the tendency for calcium phosphate stones and pH greater than 6.0 may reduce the tendency for uric acid stone formation. Source: [facility] [address]. Last revised 06-30-2017 Rhina Granados MD LAB URINE ORDERABLES Final R esult [facility] [place] [address] Department [place] [address] * (ABNORMAL) POCT glucose (05/04/2021 9:45 AM MANAGER ED) Glucose, POC 214(H) 70 - 199 mg/dL [facility] Blood 05/04/2021 9:45 AM MANAGER ED 05/04/2021 9:45 AM MANAGER ED Nalini Clayton MD LAB POCT ORDERABLES - DEVICE Fin al Result Performing Organization Address City/[facility] Co de Phone Number HENRIK [address] [address] Department [place] [address] * XR Chest 1 Vw Portable (05/04/2021 9:16 AM MANAGER ED) Anatomical Region Laterality Modality Body, Chest N/A Computed Radiogr aphy 05/04/2021 9:27 AM MANAGER ED Impressions 05/04/2021 9:27 AM MANAGER ED Stable appearance. COPD cardiomegaly, with mild failure suspected. Electronically signed by: Deacon Cummings M.D. Narrative 05/04/2021 9:27 AM MANAGER ED EXAMINATION: XR CHEST 1 VIEW DATE: 05/04/2021 [...] * (ABNORMAL) POCT glucose (05/04/2021 8:03 AM MANAGER ED) Glucose, POC 265(H) 70 - 199 mg/dL CERNER Blood 05/04/2021 8:03 AM MANAGER ED 05/04/2021 8:03 AM MANAGER ED Nalini Clayton MD LAB POCT ORDERABLES - DEVICE Fin al Result [facility] [address] Department [place] [address] * (ABNORMAL) CBC without differential (05/04/2021 2:52 AM MANAGER ED) WBC 16.7(H) 3.8 - 9.9 K/cumm [facility] Hgb 10.2(L) 13.0 - 17.5 g/dL [facility] Hct 29.6(L) 38.9 - 50.3 % [facility] Plt 332 150 - 400 K/cumm CERNER MPV 12.0 9.1 - 12.3 fL [facility]ERNER RBC 3.25(L) 4.30 - 5.80 M/cumm [facility] MCV 91.1 81.3 - 96.4 fL [facility] MCH 31.4 27.1 - 33.3 pg CERNER MCHC 34.5 32.3 - 35.7 g/dL [facility] RDW CV 14.3 11.1 - 14.9 % [facility] RDW SD 47.9 35.7 - 48.1 fL [facility] NRBC abs 0.00 0.00 - 0.01 K/cumm [facility] Blood 05/04/2021 2:52 AM MANAGER ED 05/04/2021 2:52 AM MANAGER ED Narrative [facility] - 05/04/2021 2:56 AM MANAGER ED Until heparin is discontinued. Nalini Clayton MD LAB BLOOD ORDERABLES Final Resul t Performing Organization Address City/[facility] Co de Phone Number H[facility]RIK DON [address] [address] [place] [address] * eGFR (05/04/2021 2:47 AM MANAGER ED) [facility] eGFR 112 mL/min/1.7 3 m2 [facility] Comment: Interpretive Data Reference Interval [...] last reviewed 2020 Blood 05/04/2021 2:47 AM MANAGER ED 05/04/2021 2:52 AM MANAGER ED us Wally Aguilar DO LAB BLOOD ORDERABLES Fi nal Result Performing Organization Address [facility] Co de Phone Number HENRIK [address] [address] [place] [address] * Protime-INR (05/04/2021 2:47 AM MANAGER ED) PT 13.4 9.5 - 13.6 sec [facility] INR 1.2 0.9 - 1.2 [facility] Comment: Interpretive data Oral anticoagulant therapeutic ranges: Venous thromboembolism prophylaxis or treatment: 2.0-3.0 CARDIOLOGY Standard range: 2.0-3.0 High-intensity range: 2.5-3.5 Refer to indication-specific guidelines for appropriate target ranges for prosthetic heart valve replacement. Current interpretive data was last revised on 2019. Blood 05/04/2021 2:47 AM MANAGER ED 05/04/2021 2:52 AM MANAGER ED Rhina Granados MD LAB BLOOD ORDERABLES Final R esult Performing Organization Address [facility] de Phone Number [facility] [address] [address] [facility] [place] [address] * (ABNORMAL) aPTT (05/04/2021 2:47 AM MANAGER ED) aPTT 57(H) 27 - 37 sec [facility] Comment: Interpretive Data Therapeutic heparin range: 60.0 - 94.0 seconds. Based on correlation with therapeutic heparin activity range of 0.3-0.7 Units/mL. Current interpretive data was last revised on 2020. Blood 05/04/2021 2:47 AM MANAGER ED 05/04/2021 2:52 AM MANAGER ED Rhina Granados MD LAB BLOOD ORDERABLES Final R esult Performing Organization Address [facility] Co de Phone Number [facility] [address] [address] [facility] [place] [address] * (ABNORMAL) Comprehensive metabolic panel (05/04/2021 2:47 AM MANAGER ED) Sodium 131(L) 135 - 145 mmol/L [facility] Potassium, pl 4.0 3.3 - 4.9 mmol/L [facility] Chloride 100 97 - 110 mmol/L CERNER [...] Units/L [facility] Blood 05/04/2021 2:47 AM MANAGER ED 05/04/2021 2:52 AM MANAGER ED Wally Aguilar DO LAB BLOOD ORDERABLES Fi nal Result [facility] [address] [address] Department [place] [address] * Magnesium (05/04/2021 2:47 AM MANAGER ED) Magnesium 1.6 1.4 - 2.5 mg/dL [facility] Blood 05/04/2021 2:47 AM MANAGER ED 05/04/2021 2:52 AM MANAGER ED Silviano Huddleston [employer] LAB BLOOD ORDERABLES Final Result Performing Organization Address [facility] Co de Phone Number HENRIK [address] [address] [facility] [place] [address] * Phosphorus (05/04/2021 2:47 AM MANAGER ED) Phosphorus, pl 2.6 2.3 - 4.5 mg/dL [facility] Blood 05/04/2021 2:47 AM MANAGER ED 05/04/2021 2:52 AM MANAGER ED Silviano Huddleston [employer] LAB BLOOD ORDERABLES Final Result Performing Organization Address [facility] de Phone Number HENRIK [address] [address] [facility] [place] [address] * (ABNORMAL) POCT glucose (05/04/2021 2:38 AM MANAGER ED) Glucose, POC 218(H) 70 - 199 mg/dL [facility] Blood 05/04/2021 2:38 AM MANAGER ED 05/04/2021 2:38 AM MANAGER ED Nalini Clayton MD LAB POCT ORDERABLES - DEVICE Fin al Result Performing Organization Address [facility] Co de Phone Number HENRIK [address] [place] [address] * POCT glucose (05/03/2021 7:59 PM MANAGER ED) Glucose, POC 161 70 - 199 mg/dL [facility] Blood 05/03/2021 7:59 PM MANAGER ED 05/03/2021 7:59 PM MANAGER ED Nalini Clayton MD LAB POCT ORDERABLES - DEVICE Fin al Result Performing Organization Address [facility] Co de Phone Number [facility] [address] [place] [address] * Critical Care (05/03/2021 7:56 PM MANAGER ED) Narrative Wally Aguilar DO - 05/03/2021 7:56 PM MANAGER ED Wally Aguilar, DO ? 05/04/2021 12:13 AM [...] plan with the ICU team and other medical/aws consultant staff, making frequent assessments and decisions [...] Result * POCT glucose (05/03/2021 4:46 PM MANAGER ED) [facility] Glucose, POC 177 70 - 199 mg/dL [facility] Blood 05/03/2021 4:46 PM MANAGER ED 05/03/2021 4:46 PM MANAGER ED Nalini Clayton MD LAB POCT ORDERABLES - DEVICE Fin al Result Performing Organization Address City/[facility]/ZIP Co de Phone Number HENRIK ODN [address] [address] [facility] [place] [address] * POCT glucose (05/03/2021 11:20 AM MANAGER ED) Glucose, POC 108 70 - 199 mg/dL [facility] Blood 05/03/2021 11:2 0 AM MANAGER ED 05/03/2021 11:20 AM MANAGER ED Nalini Clayton MD LAB POCT ORDERABLES - DEVICE Fin al Result Performing Organization Address [facility] de Phone Number HENRIK DON [address] [address] [facility] [place] [address] * Prepare platelets: 2 Units (05/03/2021 9:26 AM MANAGER ED) Product code [id number] [facility] Unit Number [id number] [facility] Product Blood Type APOS [facility] CH Dispense Status PRESUMED TRANSFUSED [facility] CH Product code [id number] [facility] CH Unit Number [id number] [facility] Product Blood Type ANEG [facility] Dispense Status PRESUMED TRANSFUSED [facility] Blood (Blood, Venous) 05/03/2021 9:26 AM MANAGER ED Narrative [facility] CH - 05/05/2021 10:15 AM MANAGER ED Are special requirements needed? (all products are leukoreduced)->No Date required:-[id number] PLT # of Units:-2-Units Reasons:-Bleeding/pre-op with antiplatelet agent} Ainsley Rashid MD BLOOD BANK PRODUCT ORDER REJI Final Result Performing Organization Address [facility] Co de Phone Number HENRIK DON [address] [address] [facility] [place] [address] * Prepare RBC: 4 Units (05/03/2021 9:26 AM MANAGER ED) Product code [id number] [facility] CH Unit Number [id number] [facility] Product Blood Type APOS [facility] CH Dispense Status PRESUMED TRANSFUSED [facility] CH Product code [id number] [facility] CH Unit Number [id number] [facility] CH Product Blood Type APOS [facility]ER CH Dispense Status PRESUMED TRANSFUSED [facility]ER CH Product code [id number] [facility] CH Unit Number [id number] [facility] CH Product Blood Type APOS [facility] CH Dispense Status PRESUMED TRANSFUSED [facility] CH Product code [id number] [facility] CH Unit Number [id number] [facility] CH Product Blood Type APOS [facility] CH Dispense Status PRESUMED TRANSFUSED [facility] Blood 05/03/2021 9:26 AM MANAGER ED Narrative [facility] CH - 05/05/2021 10:15 AM MANAGER ED Specify Procedure:->cabg Are special requirements needed? (all products are leukoreduced)->No Date required:-20210504 LRRBC # of [id number] Reasons:-Hold for procedure (specify procedure)} Ainsley Rashid MD BLOOD BANK PRODUCT ORDER RJEI Final Result [facility]K [address] [facility] Department [place] [address] * Critical Care (05/03/2021 9:14 AM MANAGER ED) Narrative Frank Dugan MD - 05/03/2021 9:14 AM MANAGER ED Frank Dugan MD ? 05/03/2021 ??9:24 AM [...] plan with the ICU team and other medical/aws consultant staff, making frequent assessments and decisions [...] Result * POCT glucose (05/03/2021 7:36 AM MANAGER ED) Pathologist [facility] Glucose, POC 104 70 - 199 mg/dL [facility] DON Blood 05/03/2021 7:36 AM MANAGER ED 05/03/2021 7:36 AM MANAGER ED us Nalini Clayton MD LAB POCT ORDERABLES - DEVICE Fin al Result [facility] DON [address] [address] Department [place] [address] * eGFR (05/03/2021 4:19 AM MANAGER ED) eGFR 118 mL/min/1.7 3 m2 [facility] DON Comment: Interpretive [...] last reviewed 2020 Blood 05/03/2021 4:19 AM MANAGER ED 05/03/2021 4:36 AM MANAGER ED Wally Aguilar DO LAB BLOOD ORDERABLES Fi nal Result [facility] [address] [address] Department [place] [address] * (ABNORMAL) CBC without differential (05/03/2021 4:19 AM MANAGER ED) WBC 16.4(H) 3.8 - 9.9 K/cumm [facility] Hgb 10.7(L) 13.0 - 17.5 g/dL [facility] Hct 31.0(L) 38.9 - 50.3 % [facility] Plt 321 150 - 400 K/cumm [facility] MPV 11.7 9.1 - 12.3 fL [facility] RBC 3.41(L) 4.30 - 5.80 M/cumm [facility] MCV 90.9 81.3 - 96.4 fL [facility] MCH 31.4 27.1 - 33.3 pg [facility] MCHC 34.5 32.3 - 35.7 g/dL [facility] RDW CV 14.6 11.1 - 14.9 % [facility] RDW SD 48.8(H) 35.7 - 48.1 fL [facility] NRBC abs 0.00 0.00 - 0.01 K/cumm [facility] Blood 05/03/2021 4:19 AM MANAGER ED 05/03/2021 4:36 AM MANAGER ED Narrative [facility] - 05/03/2021 4:42 AM MANAGER ED Until heparin is discontinued. us Nalini Clayton MD LAB BLOOD ORDERABLES Final Resul t [facility]ER[facility] [address] Department [place] [address] * (ABNORMAL) Comprehensive metabolic panel (05/03/2021 4:19 AM MANAGER ED) Sodium 136 135 - 145 mmol/L CERNER [...] Units/L [facility] Blood 05/03/2021 4:19 AM MANAGER ED 05/03/2021 4:36 AM MANAGER ED Wally Aguilar DO LAB BLOOD ORDERABLES Fi nal Result [facility] DON [address] [address] [facility] [place] [address] * Magnesium (05/03/2021 4:19 AM MANAGER ED) Magnesium 1.7 1.4 - 2.5 mg/dL [facility] Blood 05/03/2021 4:19 AM MANAGER ED 05/03/2021 4:36 AM MANAGER ED Silviano Huddleston [employer] LAB BLOOD ORDERABLES Final Result Performing Organization Address [facility] Co de Phone Number HENRIK DON [address] [address] [place] [address] * Phosphorus (05/03/2021 4:19 AM MANAGER ED) Phosphorus, pl 3.1 2.3 - 4.5 mg/dL [facility] Blood 05/03/2021 4:19 AM MANAGER ED 05/03/2021 4:36 AM MANAGER ED Silviano Huddleston [employer] LAB BLOOD ORDERABLES Final Result Performing Organization Address City/[facility]/ZIP Co de Phone Number HENRIK DON [address] [address] [place] [address] * (ABNORMAL) aPTT (05/03/2021 4:19 AM MANAGER ED) Pathologist [facility] aPTT 64(H) 27 - 37 sec [facility]ENRIK Comment: Interpretive Data Therapeutic heparin range: 60.0 - 94.0 seconds. Based on correlation with therapeutic heparin activity range of 0.3-0.7 Units/mL. Current interpretive data was last revised on 2020. Blood 05/03/2021 4:19 AM MANAGER ED 05/03/2021 4:36 AM MANAGER ED Ainsley Rashid MD LAB BLOOD ORDERABLES Fin al Result Performing Organization Address [facility] de Phone Number [facility] [address] [place] [address] * (ABNORMAL) Hemoglobin A1c (05/03/2021 4:19 AM MANAGER ED) Pathologist [facility] Hgb A1C 13.5(H) 4.0 - 5.6 % [facility] Estimated Average Glucose 341 mg/dL H[facility]K Comment: The ADA recommends reporting an estimated Average Glucose (eAG) with all Hemoglobin A1c results using the equation derived from a study of 507 normal and diabetic adults. ??Minority populations were underrepresented and children were not included. ?? (Diabetes Care 31:3958-1170, 2008). ??The eAG is not equivalent to a fasting glucose. Blood 05/03/2021 4:19 AM MANAGER ED 05/03/2021 4:36 AM MANAGER ED Erika Suárez NP LAB BLOOD ORDERABLES Final R esult Performing Organization Address [facility] de Phone Number [facility] [address] [address] [place] [address] * Critical Care (05/02/2021 8:00 PM MANAGER ED) Narrative Wally Aguilar, DO - 05/02/2021 8:00 PM MANAGER ED Wally Aguilar, DO ? 05/02/2021 10:37 PM Critical Care Performed by: Wally Aguilar, Authorized by: Wally Aguilar, DO CRITICAL CARE: [...] plan with the ICU team and other medical/aws consultant staff, making frequent assessments and decisions [...] Final Result * eGFR (05/02/2021 7:35 PM MANAGER ED) [facility] eGFR 110 mL/min/1.7 3 m2 HENRIK [...] last reviewed 2020 Blood 05/02/2021 7:35 PM MANAGER ED 05/02/2021 8:04 PM MANAGER ED Wally Aguilar DO LAB BLOOD ORDERABLES Fi nal Result Performing Organization Address [facility] de Phone Number [facility] [address] [address] [place], [place] [address] * Magnesium (05/02/2021 7:35 PM MANAGER ED) Pathologist [facility] Magnesium 1.6 1.4 - 2.5 mg/dL [facility] Blood 05/02/2021 7:35 PM MANAGER ED 05/02/2021 8:04 PM MANAGER ED Wally Aguilar DO LAB BLOOD ORDERABLES Fi nal Result Performing Organization Address [facility] de Phone Number [facility] [address] [place], [place] [address] * (ABNORMAL) Basic metabolic panel (05/02/2021 7:35 PM MANAGER ED) Sodium 135 135 - 145 mmol/L [facility] Potassium, pl 3.6 3.3 - 4.9 mmol/L [facility] Chloride 103 97 - 110 mmol/L [facility] CO2 21(L) 22 - 32 mmol/L [facility] Anion gap 11 2 - 15 mmol/L [facility] BUN 6(L) 8 - 25 mg/dL [facility] Creatinine 0.60(L) 0.80 - 1.30 mg/dL [facility] Glucose 148 70 - 199 mg/dL [facility] Comment: Interpretive Data Fasting glucose [...] 2017. Calcium 8.4(L) 8.5 - 10.3 mg/dL [facility] Blood 05/02/2021 7:35 PM MANAGER ED 05/02/2021 8:04 PM MANAGER ED Wally Aguilar DO LAB BLOOD ORDERABLES nal Result [facility] [address] Department [place] [address] * (ABNORMAL) CBC without differential (05/02/2021 7:35 PM MANAGER ED) Pathologist [facility] WBC 16.5(H) 3.8 - 9.9 K/cumm [facility] Hgb 10.4(L) 13.0 - 17.5 g/dL [facility] Comment:Hemoglobin delta due to apparent blood transfusion. Hct 30.7(L) 38.9 - 50.3 % [facility] Plt 317 150 - 400 K/cumm [facility] MPV 11.9 9.1 - 12.3 fL [facility] RBC 3.38(L) 4.30 - 5.80 M/cumm [facility] MCV 90.8 81.3 - 96.4 fL [facility] MCH 30.8 27.1 - 33.3 pg [facility] MCHC 33.9 32.3 - 35.7 g/dL [facility] RDW CV 14.0 11.1 - 14.9 % [facility] RDW SD 47.1 35.7 - 48.1 fL [facility] NRBC abs 0.00 0.00 - 0.01 K/cumm [facility] Blood 05/02/2021 7:35 PM MANAGER ED 05/02/2021 8:04 PM MANAGER ED Wally Aguilar DO LAB BLOOD ORDERABLES Fi nal Result Performing Organization Address [facility] Co de Phone Number [facility] [address] [address] [facility] [place] [address] * Transfuse RBC (05/02/2021 7:01 PM MANAGER ED) Blood specimen (specimen) Result [facility] Balta Ahn MD BLOOD TRANSFUSION ORDERABLES E dited Result - Final Performing Organization Address [facility] Phone Number [facility] [address] [place] [address] * Transfuse RBC: 1 Units (05/02/2021 7:01 PM MANAGER ED) Blood specimen (specimen) Result [facility] Balta Ahn MD BLOOD TRANSFUSION ORDERABLES E dited Result - Final * POCT glucose (05/02/2021 5:23 PM MANAGER ED) Glucose, POC 102 70 - 199 mg/dL [facility] Blood 05/02/2021 5:23 PM MANAGER ED 05/02/2021 5:23 PM MANAGER ED Nalini Clayton MD LAB POCT ORDERABLES - DEVICE Fin al Result Performing Organization Address [facility] de Phone Number [facility] [address] [address] [facility] [place] [address] * Prepare RBC: 1 Units (05/02/2021 3:27 PM MANAGER ED) Product code [id number] [facility] Unit Number [id number] [facility] Product Blood Type APOS [facility] Dispense Status PRESUMED TRANSFUSED [facility] Blood 05/02/2021 3:27 PM MANAGER ED Narrative [facility] - 05/02/2021 10:15 PM MANAGER ED Are special requirements needed? (all products are leukoreduced)->No Date required:-20210502 LRRBC # of [id number] Reasons:-Cardiovascular disease, Hgb <8 g/dL} us Balta Ahn MD BLOOD BANK PRODUCT ORDERABLES Final Result [facility] [address] Department [place] [address] * (ABNORMAL) CBC without differential (05/02/2021 3:12 PM MANAGER ED) Pathologist [facility] WBC 14.7(H) 3.8 - 9.9 K/cumm [facility] Hgb 7.2(L) 13.0 - 17.5 g/dL [facility] Hct 21.4(L) 38.9 - 50.3 % [facility] Plt 242 150 - 400 K/cumm [facility] MPV 11.6 9.1 - 12.3 fL [facility] RBC 2.27(L) 4.30 - 5.80 M/cumm [facility] MCV 94.3 81.3 - 96.4 fL [facility] MCH 31.7 27.1 - 33.3 pg [facility] MCHC 33.6 32.3 - 35.7 g/dL [facility] RDW CV 13.6 11.1 - 14.9 % [facility] RDW SD 46.9 35.7 - 48.1 fL [facility] NRBC abs 0.00 0.00 - 0.01 K/cumm [facility] Blood 05/02/2021 3:12 PM MANAGER ED 05/02/2021 3:18 PM MANAGER ED us Joe Weinberg MD LAB BLOOD ORDERABLES Final Resul t [facility]K [address] [facility] Department [place] [address] * Critical Care (05/02/2021 2:27 PM MANAGER ED) Narrative Frank Dugan MD - 05/02/2021 2:27 PM MANAGER ED Frank Dugan MD ? 05/02/2021 ??3:26 PM [...] plan with the ICU team and other medical/aws consultant staff, making frequent assessments and decisions [...] Final * POCT glucose (05/02/2021 11:03 AM MANAGER ED) Glucose, POC 110 70 - 199 mg/dL [facility] Blood 05/02/2021 11:0 3 AM MANAGER ED 05/02/2021 11:03 AM MANAGER ED Nalini Clayton MD LAB POCT ORDERABLES - DEVICE Fin al Result [facility] [address] Department [place] [address] * COVID-19 Coronavirus RNA Nasopharyngeal (05/02/2021 11:00 AM MANAGER ED) COVID-19 RNA Negative Negative [facility] Comment: Interpretive data: Synonyms for this test include: PCR and NAAT . ??This test is performed using the [employer] Xpert Xpress assay. This is a real-time [...] July 24, 2020. First COVID-19 test? Yes [facility] Employeed in healthcare? No [facility] Group care resident? No [facility] Hospitalized? Yes [facility] Is patient in ICU? Yes [facility] Symptomatic as defined by CDC? No [facility] Nasopharyngeal 05/02/2021 11 :00 AM MANAGER ED 05/02/2021 11:36 AM MANAGER ED Narrative [facility] - 05/02/2021 12:34 PM MANAGER ED What is the reason for testing?->Screening prior to urgent surgery, procedure, BMT, immunosuppressive therapy Rhina Granados MD LAB MICROBIOLOGY - GENERAL O RDERABLES Final Result [facility] [address] Department [place] [address] * (ABNORMAL) aPTT (05/02/2021 11:00 AM MANAGER ED) aPTT 61(H) 27 - 37 sec [facility] Comment: Interpretive Data Therapeutic heparin range: 60.0 - 94.0 seconds. Based on correlation with therapeutic heparin activity range of 0.3-0.7 Units/mL. Current interpretive data was last revised on 2020. Blood 05/02/2021 11:0 0 AM MANAGER ED 05/02/2021 11:11 AM MANAGER ED us Loree Enciso [employer]LE[employer]OR LAB BLOOD ORDERABLES F inal Result Performing Organization Address [facility] Phone Number [facility] [address] Department [place] [address] * TRANSTHORACIC ECHO (TTE) COMPLETE W DOPPLER/CF WO CONTRAST (05/02/2021 9:15 AM MANAGER ED) Anatomical Region Laterality Modality Ultrasound 05/02/2021 8:50 AM MANAGER ED Narrative 05/02/2021 2:07 [place] [address] Echocardiogram Report Patient Name: DEEPAK ALVARADO W : 1960 Study Date: 05/02/2021 8:50:02 AM Gender: M Tech: Location: [id number] Ref Provider: NALINI CLAYTONHeight(Cm): 175 BSA: 2.11 [...] Brito DO, FACC, FASE, FASNC 2021-05-02 14:07:25 MANAGER ED CC: CC: CC: Procedure Note Rylee Brito DO - 05/02/2021 [place] [address] Echocardiogram Report Patient Name: DEEPAK ALVARADO WPatient ID: [id number] : [id number] Date: 05/02/2021 8:50:02 AM Gender: MAccession #: [id number] Tech: SRLocation: [id number] Ref Provider: NALINI CLAYTONHeight(Cm): 175 BSA: 2.11Weight(Kg): [...] - 100 ] msec MVA2.20 MV Decel [id number] [ 104 - 258 ] msec PV [...] Brito DO, GRETCHEN, FAISAL ESPARZA 2021-05-02 14:07:25 MANAGER ED CC: CC: CC: Nalini Clayton MD CV ECHO PROCEDURES Final Result * POCT glucose (05/02/2021 8:31 AM MANAGER ED) [facility] Signature Glucose, POC 117 70 - 199 mg/dL [facility] Blood 05/02/2021 8:31 AM MANAGER ED 05/02/2021 8:31 AM MANAGER ED Nalini Clayton MD LAB POCT ORDERABLES - DEVICE Fin al Result [facility] [address] Department [place] [address] * XR Chest 1 Vw Portable (05/02/2021 5:40 AM MANAGER ED) Anatomical Region Laterality Modality Body, Chest N/A Computed Radiogr aphy 05/02/2021 6:41 AM MANAGER ED Impressions 05/02/2021 6:41 AM MANAGER ED 1. ??Appropriately positioned intra-aortic balloon pump. 2. ??Similar mixed reticular and alveolar opacities most notable in the bilateral upper lobes and perihilar region. Electronically signed by: Richard Lopez II, D.O. Narrative 05/02/2021 6:41 AM MANAGER ED EXAMINATION: XR CHEST 1 VIEW DATE: 05/02/2021 [...] Result * POCT glucose (05/02/2021 4:50 AM MANAGER ED) [facility] Glucose, POC 106 70 - 199 mg/dL [facility] Blood 05/02/2021 4:50 AM MANAGER ED 05/02/2021 4:50 AM MANAGER ED Nalini Clayton MD LAB POCT ORDERABLES - DEVICE Fin al Result [facility] [address] Department [place] [address] * eGFR (05/02/2021 4:43 AM MANAGER ED) [facility] eGFR 110 mL/min/1.7 3 m2 [facility] Comment: [...] last reviewed 2020 Blood 05/02/2021 4:43 AM MANAGER ED 05/02/2021 4:57 AM MANAGER ED us Nalini Clayton MD LAB BLOOD ORDERABLES Final Resul t [facility] [address] Department [place] [address] * (ABNORMAL) Troponin T high-sensitivity 6-hour (05/02/2021 4:43 AM MANAGER ED) Trop T hs 6,777(C) <=22 ng/L [facility] Comment: Critical Result called to and read back by Persistent abnormal result, DATE: 2021-05-02 05:30:44 BY: [place] Interpretive Data For further hscTnT resources including the diagnostic algorithm and an aid in interpretation, copy and paste this link: https://nrl.testcatalog.org/show/hsTrop Current Interpretive Data last revised 2020. Trop T hs pct delta 16 % [facility] Trop T hs interp Equivocal [facility] Blood 05/02/2021 4:43 AM MANAGER ED 05/02/2021 4:57 AM MANAGER ED us Nalini Clayton MD LAB BLOOD ORDERABLES Final Resul t [facility] [address] Department [place] [address] * (ABNORMAL) Basic metabolic panel (05/02/2021 4:43 AM MANAGER ED) Sodium 135 135 - 145 mmol/L [facility] Potassium, pl 3.3 3.3 - 4.9 mmol/L [facility] Chloride 106 97 - 110 mmol/L [facility] CO2 21(L) 22 - 32 mmol/L [facility] Anion gap 8 2 - 15 mmol/L [facility] BUN 8 8 - 25 mg/dL [facility] Creatinine 0.60(L) 0.80 - 1.30 mg/dL [facility] Glucose 106 70 - 199 mg/dL [facility] Comment: [...] 2017. Calcium 8.4(L) 8.5 - 10.3 mg/dL [facility] Blood 05/02/2021 4:43 AM MANAGER ED 05/02/2021 4:57 AM MANAGER ED us Rhina Granados MD LAB BLOOD ORDERABLES Final R esult [facility] [address] Department [place] [address] * (ABNORMAL) CBC without differential (05/02/2021 4:43 AM MANAGER ED) WBC 18.3(H) 3.8 - 9.9 K/cumm [facility] Hgb 9.6(L) 13.0 - 17.5 g/dL [facility] Hct 29.3(L) 38.9 - 50.3 % [facility] Plt 313 150 - 400 K/cumm [facility] MPV 11.5 9.1 - 12.3 fL [facility] RBC 3.09(L) 4.30 - 5.80 M/cumm [facility] MCV 94.8 81.3 - 96.4 fL [facility] MCH 31.1 27.1 - 33.3 pg [facility] MCHC 32.8 32.3 - 35.7 g/dL [facility] RDW CV 13.3 11.1 - 14.9 % [facility] RDW SD 46.5 35.7 - 48.1 fL [facility] NRBC abs 0.00 0.00 - 0.01 K/cumm [facility] Blood 05/02/2021 4:43 AM MANAGER ED 05/02/2021 4:57 AM MANAGER ED Narrative [facility] - 05/02/2021 5:02 AM MANAGER ED Until heparin is discontinued. us Nalini Clayton MD LAB BLOOD ORDERABLES Final Resul t [facility] [address] Department [place] [address] * (ABNORMAL) Troponin T high-sensitivity 4-hour (05/02/2021 2:34 AM MANAGER ED) Trop T hs 7,050(C) <=22 ng/L [facility] Comment: Critical Result called to and read back by Persistant abnormal result, DATE: 2021-05-02 03:17:35 BY: Mila Herrmann Interpretive Data For further hscTnT resources including the diagnostic algorithm and an aid in interpretation, copy and paste this link: https://nrl.testcatalog.org/show/hsTrop Current Interpretive Data last revised 2020. Trop T hs pct delta 20(C) % [facility] Comment:Critical Result call ed to and read back by Persistant abnormal result, DATE: 2021-05-02 03:17:35 BY: Mila Herrmann Trop T hs interp Significa nt(C) [facility] Comment:Critical Result call ed to and read back by Persistant abnormal result, DATE: 2021-05-02 03:17:35 BY: Mila Herrmann Blood 05/02/2021 2:34 AM MANAGER ED 05/02/2021 2:48 AM MANAGER ED Nalini Clayton MD LAB BLOOD ORDERABLES Final Resul t Performing Organization Address City/[facility] Co de Phone Number [facility] [address] [place] [address] * (ABNORMAL) Troponin T high-sensitivity 2-hour (05/02/2021 12:32 AM MANAGER ED) Trop T hs 7,281(C) <=22 ng/L [facility] [...] Talbert, DATE: 2021-05-02 01:17:12 BY: [place] Trop T hs interp Significa nt(C) [facility] Comment:Critical Result call ed to and read back by Mani Talbert, DATE: 2021-05-02 01:17:12 BY: [facility] Blood 05/02/2021 12:3 2 AM MANAGER ED 05/02/2021 12:44 AM MANAGER ED Nalini Clayton MD LAB BLOOD ORDERABLES Final Resul t Performing Organization Address City/[facility]/ZIP Co de Phone Number [facility] [address] [place] [address] * (ABNORMAL) aPTT (05/02/2021 12:32 AM MANAGER ED) aPTT 70(H) 27 - 37 sec [facility] Comment: Interpretive Data Therapeutic heparin range: 60.0 - 94.0 seconds. Based on correlation with therapeutic heparin activity range of 0.3-0.7 Units/mL. Current interpretive data was last revised on 2020. Blood 05/02/2021 12:3 2 AM MANAGER ED 05/02/2021 12:46 AM MANAGER ED us Nalini Clayton MD LAB BLOOD ORDERABLES Final Resul t [facility] [address] Department [place] [address] * (ABNORMAL) Lipid panel (05/02/2021 12:32 AM MANAGER ED) Cholesterol 139 30 - 199 mg/dL [facility] Comment: Interpretive Data Ages [...] 2018. LDL, calculated 85 <=129 mg/dL [facility] Comment: Interpretive Data [...] revised on 2018. Non-HDL Cholesterol 106 mg/dL [facility] Comment: Interpretive Data Ages [...] 2018. Chol/HDL ratio 4 [facility] Blood 05/02/2021 12:3 2 AM MANAGER ED 05/02/2021 12:44 AM MANAGER ED Nalini Clayton MD LAB BLOOD ORDERABLES Final Resul t Performing Organization Address City/[facility]/ZIP Co de Phone Number [facility] [address] [place] [address] * Type and screen (05/02/2021 12:32 AM MANAGER ED) ABO Rh A Positive [facility] Shelby, indirect Negative [facility] Blood 05/02/2021 12:3 2 AM MANAGER ED 05/02/2021 12:46 AM MANAGER ED Narrative [facility] - 05/02/2021 1:30 AM MANAGER ED Has the patient had Daratumumab or Isatuximab in the past 6 months?->Unknown Nalini Clayton MD LAB BLOOD BANK TEST ORDERABLES F inal Result Performing Organization Address City/[facility]/ZIP Co de Phone Number [facility] [address] [place] [address] * eGFR (05/01/2021 10:19 PM MANAGER ED) eGFR 108 mL/min/1.7 3 m2 [facility] Comment: Interpretive Data Reference Interval [...] reviewed 2020 Blood 05/01/2021 10:1 9 PM MANAGER ED 05/01/2021 11:03 PM MANAGER ED Wally Aguilar DO LAB BLOOD ORDERABLES Fi nal Result [facility] [address] Department [place] [address] * (ABNORMAL) Differential, auto (05/01/2021 10:19 PM MANAGER ED) Pathologist [facility] Neutrophil abs 11.5(H) 1.7 - 6.5 K/cumm [facility] Imm gran abs 0.1 0.0 - 0.1 K/cumm [facility] Lymphocyte abs 2.4 0.8 - 3.3 K/cumm [facility] Monocyte abs 1.5(H) 0.2 - 0.8 K/cumm [facility] Eosinophil abs 0.1 0.0 - 0.5 K/cumm [facility] Basophil abs 0.1 0.0 - 0.1 K/cumm [facility] Neutrophil pct 73.4 % [facility] Comment: Interpretive Data Percent cell count reference ranges are not reported, since discordance with absolute values may lead to misinterpretation of CBC data. Current Interpretive Data was last revised on 2017. Imm gran pct 0.4 % [facility] Comment: Interpretive Data Percent cell count reference ranges are not reported, since discordance with absolute values may lead to misinterpretation of CBC data. Current Interpretive Data was last revised on 2017. Lymphocyte pct 15.5 % [facility] Comment: Interpretive Data Percent cell count reference ranges are not reported, since discordance with absolute values may lead to misinterpretation of CBC data. Current Interpretive Data was last revised on 2017. Monocyte pct 9.8 % [facility] Comment: Interpretive Data Percent cell count reference ranges are not reported, since discordance with absolute values may lead to misinterpretation of CBC data. Current Interpretive Data was last revised on 2017. Eosinophil pct 0.6 % [facility] Comment: Interpretive Data Percent cell count reference ranges are not reported, since discordance with absolute values may lead to misinterpretation of CBC data. Current Interpretive Data was last revised on 2017. Basophil pct 0.3 % [facility] Comment: Interpretive Data Percent cell count reference ranges are not reported, since discordance with absolute values may lead to misinterpretation of CBC data. Current Interpretive Data was last revised on 2017. Blood 05/01/2021 10:1 9 PM MANAGER ED 05/01/2021 10:53 PM MANAGER ED us Wally Aguilar DO LAB BLOOD ORDERABLES Fi nal Result [facility] [address] Department [place] [address] * (ABNORMAL) aPTT (05/01/2021 10:19 PM MANAGER ED) aPTT 82(H) 27 - 37 sec [facility] Comment: Interpretive Data Therapeutic heparin range: 60.0 - 94.0 seconds. Based on correlation with therapeutic heparin activity range of 0.3-0.7 Units/mL. Current interpretive data was last revised on 2020. Blood 05/01/2021 10:1 9 PM MANAGER ED 05/01/2021 10:53 PM MANAGER ED Narrative [facility] - 05/01/2021 11:10 PM MANAGER ED Unless preformed in the last 48 hours. Draw prior to heparin administration. Nalini Clayton MD LAB BLOOD ORDERABLES Final Resul t Performing Organization Address [facility] Co de Phone Number [facility] [address] [place] [address] * (ABNORMAL) Protime-INR (05/01/2021 10:19 PM MANAGER ED) PT 14.5(H) 9.5 - 13.6 sec [facility] INR 1.3(H) 0.9 - 1.2 [facility] Comment: Interpretive data Oral anticoagulant therapeutic ranges: Venous thromboembolism prophylaxis or treatment: 2.0-3.0 CARDIOLOGY Standard range: 2.0-3.0 High-intensity range: 2.5-3.5 Refer to indication-specific guidelines for appropriate target ranges for prosthetic heart valve replacement. Current interpretive data was last revised on 2019. Blood 05/01/2021 10:1 9 PM MANAGER ED 05/01/2021 10:53 PM MANAGER ED Narrative [facility] - 05/01/2021 11:07 PM MANAGER ED Unless preformed in the last 48 hours. Draw prior to heparin administration. Nalini Clayton MD LAB BLOOD ORDERABLES Final Resul t Performing Organization Address [facility] Co de Phone Number [facility] [address] [place] [address] * Pro B-type natriuretic peptide (05/01/2021 10:19 PM MANAGER ED) NT-proBNP 168 <=300 pg/mL [facility] Comment: Interpretive Comments: A. Dyspnea in Acute [...] J. 2006:27:330-337. 2. Eligio RW, Luis Alberto AM. J. AM Daisy Cardiol: Cardiovasc Imag. 2009;2: 216- 225. Interpretive Data Last Revised Date: 2018. Blood 05/01/2021 10:1 9 PM MANAGER ED 05/01/2021 10:53 PM MANAGER ED us Wally Aguilar DO LAB BLOOD ORDERABLES Fi nal Result Performing Organization Address [facility] Co de Phone Number [facility] [address] [place] [address] * (ABNORMAL) CBC with auto differential (05/01/2021 10:19 PM MANAGER ED) WBC 15.7(H) 3.8 - 9.9 K/cumm [facility] Hgb 9.4(L) 13.0 - 17.5 g/dL [facility] Hct 28.2(L) 38.9 - 50.3 % [facility] Plt 312 150 - 400 K/cumm [facility] MPV 12.0 9.1 - 12.3 fL [facility] RBC 2.95(L) 4.30 - 5.80 M/cumm [facility] MCV 95.6 81.3 - 96.4 fL [facility] MCH 31.9 27.1 - 33.3 pg [facility] MCHC 33.3 32.3 - 35.7 g/dL [facility] RDW CV 13.2 11.1 - 14.9 % [facility] RDW SD 46.6 35.7 - 48.1 fL [facility] NRBC abs 0.00 0.00 - 0.01 K/cumm [facility] Blood 05/01/2021 10:1 9 PM MANAGER ED 05/01/2021 10:53 PM MANAGER ED Wally Aguilar LAB BLOOD ORDERABLES Fi nal Result Performing Organization Address [facility] Co de Phone Number [facility] [address] [place], [place] [id number] * (ABNORMAL) Blood gas, arterial (05/01/2021 10:19 PM MANAGER ED) pH, Art 7.35 7.35 - 7.45 [facility] PCO2, Arterial 37 35 - 45 mmHg [facility] PO2, Arterial 31(C) 83 - 108 mmHg [facility] Comment:Critical result call ed to and read back by Mani Talbert on 05/01/2021 23:00:58 MANAGER ED to [facility]. HCO3 Art (Calculated) 20 20 - 30 mmol/L [facility] BE, art -5 mmol/L [facility] Comment: Interpretive Data No Reference Range Established Current Interpretive Data was last revised on 2017 O2 Sat Art (Measured) 54(L) 90 - 95 % [facility] Blood 05/01/2021 10:1 9 PM MANAGER ED 05/01/2021 10:40 PM MANAGER ED Wally Aguilar LAB BLOOD ORDERABLES Fi nal Result Performing Organization Address [facility] de Phone Number [facility] [address] [place], [place] [id number] * (ABNORMAL) Calcium, ionized (05/01/2021 10:19 PM MANAGER ED) Pathologist [facility] Ca, ionized, bld 4.62 4.60 - 5.20 mg/dL [facility] Ca, ionized, bld, calc 4.50(L) 4.60 - 5.20 mg/dL [facility] Blood 05/01/2021 10:1 9 PM MANAGER ED 05/01/2021 10:41 PM MANAGER ED Wally Aguilar DO LAB BLOOD ORDERABLES Fi nal Result Performing Organization Address [facility] de Phone Number [facility] [address] [place] [address] * (ABNORMAL) Comprehensive metabolic panel (05/01/2021 10:19 PM MANAGER ED) Sodium 134(L) 135 - 145 mmol/L [facility] Potassium, pl 4.0 3.3 - 4.9 mmol/L [facility] Chloride 103 97 - 110 mmol/L [facility] CO2 19(L) 22 - 32 mmol/L [facility] Anion gap 12 2 - 15 mmol/L [facility] BUN 9 8 - 25 mg/dL [facility] Creatinine 0.63(L) 0.80 - 1.30 mg/dL [facility] Glucose 157 70 - 199 mg/dL [facility] Comment: Interpretive Data Fasting glucose >/= [...] [facility] Blood 05/01/2021 10:1 9 PM MANAGER ED 05/01/2021 10:43 PM MANAGER ED Wally Aguilar DO LAB BLOOD ORDERABLES Fi nal Result Performing Organization Address City/[facility] Co de Phone Number [facility] [address] [place] [address] * Magnesium (05/01/2021 10:19 PM MANAGER ED) Magnesium 1.6 1.4 - 2.5 mg/dL [facility] Blood 05/01/2021 10:1 9 PM MANAGER ED 05/01/2021 10:43 PM MANAGER ED Silviano Huddleston [employer] LAB BLOOD ORDERABLES Final Result Performing Organization Address City/[facility]/ZIP Co de Phone Number [facility] [address] [place] [address] * Phosphorus (05/01/2021 10:19 PM MANAGER ED) Phosphorus, pl 3.4 2.3 - 4.5 mg/dL [facility] Blood 05/01/2021 10:1 9 PM MANAGER ED 05/01/2021 10:43 PM MANAGER ED Silviano Huddleston NP LAB BLOOD ORDERABLES Final Result Performing Organization Address [facility] Co de Phone Number [facility] [address] [facility] [place] [address] * (ABNORMAL) Troponin T high-sensitivity series (baseline, 2hr, 4hr, 6hr) (05/01/2021 10:19 PM MANAGER ED) Trop T hs 5,852(C) <=22 ng/L [facility] Comment: Critical Result called to and read back by Elena Calhoun, DATE: 2021-05-01 23:24:37 BY: [place] Interpretive Data For further hscTnT resources including the diagnostic algorithm and an aid in interpretation, copy and paste this link: https://nrl.testcatalog.org/show/hsTrop Current Interpretive Data last revised 2020. Blood 05/01/2021 10:1 9 PM MANAGER ED 05/01/2021 10:43 PM MANAGER ED Nalini Clayton MD LAB BLOOD ORDERABLES Final Resul t Performing Organization Address [facility] de Phone Number [facility] [address] [place] [address] * POCT glucose (05/01/2021 9:42 PM MANAGER ED) Glucose, POC 182 70 - 199 mg/dL [facility] Blood 05/01/2021 9:42 PM MANAGER ED 05/01/2021 9:42 PM MANAGER ED Nalini Clayton MD LAB POCT ORDERABLES - DEVICE Fin al Result Performing Organization Address [facility] Co de Phone Number [facility] [address] [place] [address] * XR Chest 1 Vw Portable (05/01/2021 8:28 PM MANAGER ED) Anatomical Region Laterality Modality Body, Chest N/A Computed Radiogr aphy 05/02/2021 5:02 AM MANAGER ED Impressions 05/02/2021 5:02 AM MANAGER ED Mixed reticular and alveolar opacities are demonstrated in all lung lobes but demonstrate an upper lobe and perihilar predominance. Findings may represent pulmonary edema on background of centrilobular emphysematous changes. ?? Electronically signed by: Richard Lopez II, D.O. Narrative 05/02/2021 5:02 AM MANAGER ED EXAMINATION: XR CHEST 1 VIEW DATE: 05/01/2021 [...] Result * Critical Care (05/01/2021 8:15 PM MANAGER ED) Narrative Wally Aguilar DO - 05/01/2021 8:15 PM MANAGER ED Wally Aguilar, DO ? 05/01/2021 ??9:50 PM [...] plan with the ICU team and other medical/aws consultant staff, making frequent assessments and decisions [...] Result * POCT glucose (05/01/2021 7:10 PM MANAGER ED) Glucose, POC 176 70 - 199 mg/dL [facility] Blood 05/01/2021 7:10 PM MANAGER ED 05/01/2021 7:10 PM MANAGER ED Nalini Clayton MD LAB POCT ORDERABLES - DEVICE Fin al Result [facility] [address] [place] [address] * Check Sample (04/30/2021 10:19 PM MANAGER ED) ABO Rh A Positive [facility] HC[facility] OTHER 04/30/2021 10:1 9 PM MANAGER ED 05/02/2021 1:00 AM MANAGER ED us Nalini Clayton MD LAB BLOOD ORDERABLES Final Resul t Performing Organization Address [facility] Co de Phone Number [facility] [address] [place] [address] documented in this encounter Visit Diagnoses Diagnosis ST elevation myocardial infarction (STEMI), unspecified artery [...] COVID Acute respiratory failure due to COVID-19 (HCC) ST elevation myocardial infarction (STEMI), unspecified artery (HCC) documented in this encounter Admitting Diagnoses Diagnosis ST elevation myocardial infarction (STEMI) (HCC) Acute myocardial infarction, unspecified site, episode of care unspecified documented in this encounter Administered Medications Inactive Administered Medications - up to 3 most recent administrations Medication Order MAR Action Action Date Dose Rate Site acetaminophen (TYLENOL) tablet 650 mg 650 mg, oral, Every 6 hours PRN, 1st line for pain, Starting on 05/09/21 at 0915 Given 05/29/2021 2:29 PM MANAGER ED 650 mg Given 05/21/2021 3:45 PM MANAGER ED 650 mg Given 05/21/2021 8:11 AM MANAGER ED 650 mg al & mag hydroxide blrnxfeqnwd-pigjcwohtqjtmgc-dtfqbapxj-nystatin (MAGIC MOUTHWASH) suspension 1-1-1-1 20 mL, swish & spit, Every 4 hours PRN, pain, Starting on Tue05/17/21 at 2116 albuterol HFA (PROVENTIL HFA,VENTOLIN HFA,PROAIR HFA) 90 mcg/actuation inhaler 8 puff 8 puff, inhalation, Every 4 hours PRN (correspondence transcriber), wheezing, Starting on Tue06/03/21 at 1315 aspirin enteric coated tablet 81 mg 81 mg, oral, Daily, First dose on Tue05/12/21 at 0900, Do not crush, chew, cut, dissolve, open or otherwise manipulate tablet/capsule. Given 06/03/2021 8:11 AM MANAGER ED 81 mg Given 06/02/2021 9:07 AM MANAGER ED 81 mg Given 06/01/2021 9:01 AM MANAGER ED 81 mg atorvastatin (LIPITOR) tablet 80 mg 80 mg, oral, Nightly, First dose (after last modification) on Kristina 05/07/21 at 2100 Given 06/02/2021 8:35 PM MANAGER ED 80 mg Given 06/01/2021 9:11 PM MANAGER ED 80 mg Given 05/31/2021 9:49 PM MANAGER ED 80 mg bivalirudin (ANGIOMAX) 250 mg in sodium chloride 0.9% 50 mL infusion Continuous PRN, Starting on Tue05/01/21 at 1736, Intra-Procedure (CV) New Bag 05/01/2021 5:36 PM MANAGER ED 1.75 mg/kg/hr 40 mL/hr bivalirudin (ANGIOMAX) injection As needed, Starting on Tue05/01/21 at 1735, Intra-Procedure (CV) Given 05/01/2021 5:35 PM MANAGER ED 85.725 mg carvediloL (COREG) tablet 3.125 mg 3.125 mg, oral, 2 times daily with meals (bkfst, dinner), First dose on Kristina 05/28/21 at 1800 Given 06/03/2021 8:11 AM MANAGER ED 3.125 mg Given 06/02/2021 5:58 PM MANAGER ED 3.125 mg Given 06/02/2021 9:14 AM MANAGER ED 3.125 mg cefepime (MAXIPIME) 2,000 mg in sodium chloride 0.9% 100 mL IVPB 2,000 mg, intravenous, at 200 mL/hr, Administer over 30 Minutes, Every 12 hours, First dose (after last modification) on 05/30/21 at 1730, Renally dose adjusted per pharmacy protocol for CrCl > 60 mL/min Mini-Bag Plus bag, Indications: Pneumonia, Hospital AcquiredIndications:Pneumonia, Hospital Acquired New Bag 06/03/2021 6:03 AM MANAGER ED 2,000 mg 200 mL/hr New Bag 06/02/2021 5:07 PM MANAGER ED 2,000 mg 200 mL/hr New Bag 06/02/2021 5:24 AM MANAGER ED 2,000 mg 200 mL/hr clopidogreL (PLAVIX) tablet 75 mg 75 mg, oral, Daily, First dose on Kristina 05/28/21 at 1145 Given 06/03/2021 8:11 AM MANAGER ED 75 mg Given 06/02/2021 9:07 AM MANAGER ED 75 mg Given 06/01/2021 9:01 AM MANAGER ED 75 mg dapagliflozin (FARXIGA) tablet 10 mg 10 mg, oral, Daily, First dose on 05/23/21 at 1245, Indications: heart failure with reduced ejection fractionIndications:heart failure with reduced ejection fraction Given 06/03/2021 8:11 AM MANAGER ED 10 mg Given 06/02/2021 1:46 PM MANAGER ED 10 mg Given 06/01/2021 9:01 AM MANAGER ED 10 mg dextrose (D10W) 10% bolus 250 [...] Vein Thrombosis Prevention Given 06/01/2021 9:12 PM MANAGER ED 40 mg Left Lower Abdomen Given 05/31/2021 10:00 PM MANAGER ED 40 mg L eft Lower Abdomen Given 05/30/2021 9:13 PM MANAGER ED 40 mg Le ft Lower Abdomen eptifibatide (INTEGRILIN) 0.75 mg/mL infusion Continuous PRN, Starting on Tue05/01/21 at 1755, Intra-Procedure (CV) New Bag 05/01/2021 5:55 PM MANAGER ED 2 mcg/kg/min 18.29 mL/h r eptifibatide (INTEGRILIN) bolus Administer over 1 Minutes, As needed, Starting on Tue05/01/21 at 1743, Intra-Procedure (CV) Given 05/01/2021 5:54 PM MANAGER ED 19 mg Given 05/01/2021 5:43 PM MANAGER ED 19 mg fentaNYL (SUBLIMAZE) preservative free injection As needed, Starting on Tue05/01/21 at 1729, Intra-Procedure (CV) Given 05/01/2021 5:29 PM MANAGER ED 50 mcg glucagon injection 1 mg 1 mg, intramuscular, [...] Tue05/19/21 at 1739 Given 05/25/2021 11:53 PM MANAGER ED 200 mg Given 05/21/2021 8:10 AM MANAGER ED 200 mg Given 05/20/2021 5:06 PM MANAGER ED 200 mg heparin in 0.45% sodium chloride 25,000 units/250 mL (100 units/mL) infusion (premix) Continuous PRN, Starting on Tue05/01/21 at 1832, Intra-Procedure (CV) New Bag 05/01/2021 6:32 PM MANAGER ED 1,000 Units/hr 10 mL/hr insulin lispro (HumaLOG, ADMELOG) 100 unit/mL injection [...] NOT hold for NPO Status, Indications: Diabetes MellitusIndications:Di abetes Mellitus Given 06/03/2021 12:22 PM MANAGER ED 4 Units Right Upper Arm Given 06/03/2021 8:13 AM MANAGER ED 4 Units Le ft Lower Abdomen Given 06/02/2021 5:07 PM MANAGER ED 6 Units Ri ght Lower Abdomen insulin lispro (HumaLOG, ADMELOG) 100 unit/mL injection 0-5 Units 0-5 Units, subcutaneous, Nightly, First dose on Tue05/23/21 at 2100, Blood glucose mg/dL: 149 or [...] Diabetes MellitusIndications:Diabetes Mellitus Given 06/02/2021 8:44 PM MANAGER ED 1 Units Left Upper Arm Given 06/01/2021 9:22 PM MANAGER ED 1 Units Le ft Lower Abdomen Given 05/31/2021 10:00 PM MANAGER ED 1 Units L eft Lower Abdomen ioversoL (OPTIRAY 350) injection As needed, Starting on Tue05/01/21 at 1843, Intra-Procedure (CV) Given 05/01/2021 6:43 PM MANAGER ED 353 mL midazolam (VERSED) 1 mg/mL preservative free injection Administer over 2 Minutes, As needed, Starting on Tue05/01/21 at 1729, Intra-Procedure (CV) Given 05/01/2021 5:29 PM MANAGER ED 2 mg midodrine (PROAMATINE) tablet 15 mg 15 mg, oral, 3 times daily, First dose (after last modification) on Tue05/22/21 at 1500, Indications: Symptomatic Orthostatic HypotensionIndications:Symptomatic Orthostatic Hypotension Given 06/03/2021 8:11 AM MANAGER ED 15 mg Given 06/02/2021 11:58 PM MANAGER ED 15 mg Given 06/02/2021 3:09 PM MANAGER ED 15 mg nitroglycerin injection 200 mcg/mL D5W 10 mL As needed, Starting on Tue05/01/21 at 1757, Intra-Procedure (CV) Given 05/01/2021 5:57 PM MANAGER ED 300 mcg nitroprusside (NIPRIDE) injection As needed, Starting on Tue05/01/21 at 1820, Intra-Procedure (CV) Given 05/01/2021 6:20 PM MANAGER ED [address] (PROTONIX) extended release tablet 40 mg 40 mg, oral, Daily, First dose on Kristina 05/07/21 at 0900, Do not crush, chew, cut, dissolve, open or otherwise manipulate tablet/capsule., Indications: Stress Ulcer ProphylaxisIndications:Stress Ulcer Prophylaxis Given 06/03/2021 8:28 AM MANAGER ED 40 mg Given 06/02/2021 9:07 AM MANAGER ED 40 mg Given 06/01/2021 9:01 AM MANAGER ED 40 mg phenylephrine (HAYDEN-SYNEPHRINE) injection As needed, Starting on Tue05/01/21 at 1802, Intra-Procedure (CV) Given 05/01/2021 6:12 PM MANAGER ED 100 mcg Given 05/01/2021 6:02 PM MANAGER ED 100 mcg polyethylene glycol (MIRALAX) packet 17 g 17 g, oral, Every 12 hours, First dose (after last modification) on Tue05/29/21 at 1015, Dissolve in 8 ounces of fluid, Indications: constipationIndications:constipation Given 06/02/2021 9:08 AM MANAGER ED 17 g Given 06/01/2021 9:10 PM MANAGER ED 17 g Given 06/01/2021 9:02 AM MANAGER ED 17 g QUEtiapine (SEROquel) tablet 50 mg 50 mg, oral, Nightly, First dose (after last modification) on Tue05/22/21 at 2100 Given 06/02/2021 8:35 PM MANAGER ED 50 mg Given 06/01/2021 9:11 PM MANAGER ED 50 mg Given 05/31/2021 9:49 PM MANAGER ED 50 mg senna-docusate (PERICOLACE) 8.6-50 mg per tablet 2 tablet 2 tablet, oral, Every 12 hours, First dose on Tue05/29/21 at 1015 Given 06/02/2021 9:07 AM MANAGER ED 2 tablets Given 06/01/2021 9:10 PM MANAGER ED 2 tablets Given 06/01/2021 9:01 AM MANAGER ED 2 tablets sodium bicarbonate tablet 1,300 mg 1,300 mg, oral, 2 times daily, First dose (after last modification) on Tue05/29/21 at 0900 Given 06/03/2021 8:12 AM MANAGER ED 1,300 mg Given 06/02/2021 8:35 PM MANAGER ED 1,300 mg Given 06/02/2021 9:07 AM MANAGER ED 1,300 mg sodium chloride 0.9% flush 0.5-20 mL 0.5-20 mL, intra-catheter, Every 8 hours scheduled, First dose on Tue05/04/21 at 2200, Flush volume based on line type and size. , Indications: FlushingIndications:Flushing Given 06/03/2021 6:08 AM MANAGER ED 10 mL Given 06/02/2021 8:38 PM MANAGER ED 10 mL Given 06/02/2021 3:10 PM MANAGER ED 10 mL sodium chloride 0.9% infusion Continuous PRN, Starting on Tue05/01/21 at 1727, Intra-Procedure (CV) New Bag 05/01/2021 5:27 PM MANAGER ED 500 mL/hr 500 mL/hr vancomycin (VANCOCIN) 1,750 mg in sodium chloride 0.9% 500 mL IVPB 1,750 mg, intravenous, at 258.8 mL/hr, Administer over 120 Minutes, Every 12 hours, First dose (after last modification) on 05/30/21 at 0600, For 10 doses, Indications: Pneumonia, Hospital AcquiredIndications:Pneumonia, Hospital Acquired New Bag 06/03/2021 6:03 AM MANAGER ED 1,750 mg 258.8 mL/hr New Bag 06/02/2021 5:58 PM MANAGER ED 1,750 mg 258.8 mL/hr New Bag 06/02/2021 6:13 AM MANAGER ED 1,750 mg 258.8 mL/hr documented in this [...] Recently Administered Medications Times are shown in MANAGER ED. Scheduled Medication Order 06/01/2021 06/02/2021 06/03/2021 albuterol HFA (PROVENTIL HFA,VENTOLIN HFA,PROAIR HFA) 90 mcg/actuation inhaler 8 puff (CANCELED) 8 puff, inhalation, Every 4 hours while awake (correspondence transcriber), First dose on Tue05/20/21 at 2200 0813 (Given - Provider: Tish Thomas, ABIOLA)1350 (Given - Provider: Tish Thomas, EXHIBITION SPECIALIST)1711 (Not Given - Provider: Rosalva Henry EXHIBITION SPECIALIST - Reason: Patient/family refused)2119 (Given - Provider: Opal Dillon, ABIOLA) 1014 (Given - Provider: Jayson Underwood RRT)1258 (Not Given - Provider: Jayson Underwood RRT - Reason: Other - Comment: recently given) albuterol HFA (PROVENTIL HFA,VENTOLIN HFA,PROAIR HFA) 90 mcg/actuation inhaler 8 puff (CANCELED) 8 puff, inhalation, Every 6 hours while awake (correspondence transcriber), First dose (after last modification) on Tue06/02/21 at 2100 2137 (Given - Provider: Stefania Gallegos, ABIOLA) 0908 (Not Given - Provider: Deirdre Hoskins, ABIOLA - Reason: Other - Comment: PT states [...] Regina Regalado, DEEPIKA)1758 (Given - Provider: Regina Regalado, DEEPIKA) 0811 (Given - Provider: Inna Sorto RN) [...] RN) 0603 (New Bag - Provider: Azucena Hsu, DEEPIKA) clopidogreL (PLAVIX) tablet 75 mg 75 mg, oral, Daily, First dose on Kristina 05/28/21 at 1145 0901 (Given - Provider: Suzie Meza RN) 0907 (Given - Provider: Regina Regalado RN) 0811 (Given - Provider: Inna Sorto RN) dapagliflozin (FARXIGA) tablet 10 mg 10 mg, [...] parameters not met)1147 (Given - Provider: Regina Regalado, DEEPIKA)1707 (Given - Provider: Regina Regalado, DEEPIKA) 0813 (Given - Provider: Inna Sorto, DEEPIKA)1222 [...] RN) 2043 (Given - Provider: Azucena Hsu, RN) magnesium sulfate 2 g/50 mL in water (premix) 2 g (COMPLETED) 2 g, intravenous, Administer over 60 Minutes, Once, On Tue06/02/21 at 1045, For 1 dose 1138 (New Bag - Provider: Regina Regalado, DEEPIKA) magnesium sulfate 2 g/50 mL in water (premix) 2 g (COMPLETED) 2 g, intravenous, Administer over 60 Minutes, Once, On Tue06/03/21 at 1045, For 1 dose 1101 (New Bag - Provider: Inna Sorto, DEEPIKA) midodrine (PROAMATINE) tablet 15 mg 15 mg, [...] Hsu, DEEPIKA) 0811 (Given - Provider: Inna Sorto, DEEPIKA)1500 (Due) pantoprazole DR (PROTONIX) extended release tablet 40 mg 40 mg, oral, Daily, First dose on Tue05/07/21 at 0900, Do not crush, chew, cut, dissolve, open or otherwise manipulate tablet/capsule., Indications: Stress Ulcer Prophylaxis 0901 (Given - Provider: Suzie Meza RN) 0907 (Given - Provider: Regina Regalado, DEEPIKA) 0828 (Given - Provider: Inna Sorto, DEEPIKA) polyethylene glycol (MIRALAX) packet 17 g 17 g, oral, Every 12 hours, First dose (after last modification) on Tue05/29/21 at 1015, Dissolve in 8 ounces of fluid, Indications: constipation 0902 (Given - Provider: Suzie Meza RN)2109 (Given - Provider: Ellen Drummond RN) 09 (Given - Provider: Regina Regalado RN)2034 (Not [...] Drummond RN) 09 (Given - Provider: Regina Regalado, DEEPIKA)2033 (Not Given - Provider: Azucena Hsu RN - Reason: Patient/family refused) 105 (Not Given - Provider: Inna Sorto RN - Reason: Patient/family refused) sodium bicarbonate tablet 1,300 mg 1,300 mg, oral, 2 times daily, First dose (after last modification) on Tue05/29/21 at 0900 0901 (Given - Provider: Suzie Meza RN)2109 (Given - Provider: Ellen Drummond RN) 09 (Given - Provider: Regina Regalado, DEEPIKA)2034 (Given - Provider: Azucena Hsu, DEEPIKA) 0812 (Given - Provider: Inna Sorto RN) sodium chloride 0.9% flush 0.5-20 mL 0.5-20 mL, intra-catheter, Every 8 hours scheduled, First dose on Tue05/04/21 at 2200, Flush volume based on line type and size. , Indications: Flushing 0526 (Given - Provider: Ellen Drummond RN)1415 (Not Given - Provider: Suzie Meza RN - Reason: Other)2202 (Given - Provider: Ellen Drummond RN) 0533 (Given - Provider: Ellen Drummond RN)1510 (Given - Provider: Regina Regalado, DEEPIKA)2038 (Given - Provider: Azucena Hsu RN) 0608 [...] 05/09/21 at 0915 al & mag hydroxide jwtboplvnwl-whpaskqhoywfxcj-xbuqijrxd-nystatin (MAGIC MOUTHWASH) suspension 1-1-1-1 20 mL, swish & spit, Every 4 hours PRN, pain, Starting on 05/17/21 at 2116 albuterol HFA (PROVENTIL HFA,VENTOLIN HFA,PROAIR HFA) 90 mcg/actuation inhaler 8 puff 8 puff, inhalation, Every 4 hours PRN (correspondence transcriber), wheezing, Starting on 06/03/21 at 1315 dextrose [...] 4 times daily PRN, cough, Starting on 05/19/21 at 1739 ondansetron (ZOFRAN) injection 4 mg [...] millicurie 1 05/18/2021 al & mag hydroxide ofexkogclta-wpwvjzvunbhfbul-wqolllmrh-nyst atin (MAGIC MOUTHWASH) suspension 1-1-1-1 5 05/17/2021 [...] mL 3 04/2105/04/2021 sodium chloride 0.9% infusion 5 05/12/2021 05/01/2021 aspirin enteric coated tablet 81 [...] 05/04/2021 eptifibatide (INTEGRILIN) 0. 75 mg/mL infusion 2 05/02/2021 05/01/2021 lidocaine (LIDODERM) 5 % patch 2 patch 1 ramelteon (ROZEREM) tablet 8 mg 1 aspirin chewable tablet 324 mg 1 05/01/2021 heparin 1,000 unit/mL inject ion 2,000 Units 1 05/01/2021 heparin 1,000 unit/mL inject ion 3,000 Units 1 05/01/2021 heparin in 0.45% sodium chlo ride 25,000 units/250 mL (100 units/mL) infusion (premix) 1 05/01/2021 insulin glargine (LANTUS, SE MGLEE) 100 unit/mL injection 13 Units 1 05/01/2021 insulin lispro (HumaLOG, ADM ELOG) 100 unit/mL injection 0-4 Units 1 05/01/2021 insulin lispro (HumaLOG, ADM ELOG) 100 unit/mL injection 4 Units 1 05/01/2021 senna-docusate (PERICOLACE) 8.6-50 mg per [...] REQUEST OPERATING ROOM 1 05/03/2021 CASE REQUEST HEAD OF PRECISION TARGETING 1 05/01/2021 documented in this encounter Additional Health Concerns Infection Onset Date Last Indicated Resolved Time COVID: Suspected 05/19/2021 05/19/2021 05/19/2021 10:03 PM MANAGER ED COVID19 05/19/2021 05/19/2021 06/17/2021 3:06 AM MANAGER ED Rhino/Enterovirus 05/26/2021 05/26/2021 06/09/2021 3:05 AM MANAGER ED documented as of this encounter Care Teams F[employer] Bucking Supervisor Relationship Specialty Start Date End Date Unknown, Notinfile PCP - General 05/01/21 [place] [id number] [place] [address] Surgeon Cardiothoracic Surgery 05/01/21 documented as of this encounter
--- OUTSIDE RECORDS SUMMARY | 2024-06-21 20:02 | XMS_ITS | Data Portability ---
Author Organization Dora AGUIRRE Address [address] [facility] [place] [address] Assessment No assessment recorded. Plan of Treatment Reminders Order Date Submit Date Provider Last Modified By Organization Details Last Modified Time Details Appointments None recorded. Lab CBC w/ auto diff 2015 016 [facility], [address] [facility], [place], [address], 6 11:02:23 CMP, serum or plasma 2015 016 [facility] [facility], [address] [facility] [address], [address], [place], [address], 6 11:02:23 hepatitis C Ab, signal-to- cutoff, serum or plasma 2015 016 [facility]ao [facility], [address] [facility], [place], [address], 6 19:01:42 lipid panel, serum 2015 016 [facility], [address] [facility] [address], [place], [address], 6 11:02:23 urinalysis , complete 2015 016 [facility] [facility], [address] [facility] [address], [place], [address], 6 11:02:24 HIV (1+O+2) Ab, serum 2015 016 [facility], [address] [facility], [address], [place], [address], 6 11:02:24 HbA1c (hemoglobi n A1c), blood 2015 016 [facility], [address] [facility] [address], [place], [address], 6 11:02:24 albumin, urine 2015 016 [facility], [address] [facility], [address], [place], [address], 6 11:02:24 hemoglobin , qualitativ e, stool by immunologi c method 2015 016 [facility]ao [facility], [address] [facility], [address], [place], [address], 6 19:01:43 Referral diabetic ophthalmol ogy referral 2015 016 [email or web address] [place], [address] [facility], [address], [place], [address], 7 08:28:50 colonoscop y referral - Please call patient to schedule and send consult 2015 016 [email or web address] Not available 6 11:55:26 urologist referral - Please call patient to schedule appt. Thank you 2019 020 yang Morales, [address] [facility], [address], [place], [address], 0 08:22:46 Procedures None recorded. Surgeries None recorded. Imaging x-ray, chest, 2 view 2015 016 mringor Not available 6 10:56:56 Medication Orders glimepirid e 4 mg tablet [id number] [address] , [place], [place], [id number], 0 11:22:21 Basaglar KwikPen U-100 Insulin 100 unit/mL (3 mL) subcutaneo us [email or web address] [facility], [address] [place] [address], [address], 0 17:45:49 glimepirid e 2 mg tablet 2019 020 [facility], [address] [place] [address], [address], 0 12:02:38 Patient TargetsNo targets recorded. Patient Instructions Encounter Date Encounter Id Patient Instructions Last Modified By Organization Details Last Modified Time 11/05/2015 [id number] I have been very so and direct about the need for Mr. Qiu to stop smoking in an effort to reduce his incidence of CVS events, prevent progression of his COPD and reduce his morbidity and mortality. [email or web address] Not available 11/05/2015 14:57:57 Reason for Referral Diabetic Ophthalmology Refer ral for Uncontrolled type 2 diabetes mellitus Referring Physician: Cherri Bradshaw, Internal Medicine, Encounter Date: 11/05/2015 Colonoscopy Referral for Scr eening for malignant neoplasm of colon Please call patient to schedule and send consult Referring Physician: Cherri Bradshaw, Internal Medicine, Encounter Date: 11/05/2015 Urologist Referral for Impot ence Impotence Please call patient to schedule appt. Thank you Referring Physician: Anastacio Archer, Internal Medicine, Encounter Date: 12/24/2019 Problems Name Problem SNOMED Code Status Onset Date Resolution Date Notes Provider Name and Address Organization Details Recorded Time Essential OggiFinogiensio n 17700314 Active 2019 Anastacio Archer MD Attn: Accountcarmen soler,[address] [facility], [place], [address], [place] [facility] 0 11:48:12 History of myocardial infarction 753251357 Active 2019 Last in 2011 Anastacio Archer MD Attn: Accountcarmen soler,[address] [facility], [place], [address], [place] [facility] 0 11:50:00 History of placement of stent for coronary artery disease 173394198 Active 2019 Anastacio Archer MD Attn: Accountin karlene,[address] [facility], [place], [address], [place] [facility] 0 11:50:39 Gastroesoph ageal reflux disease 554022943 Active 2019 Anastacio Archer MD Attn: Accountcarmen soler,[address] [facility], [place], [address], [place] [facility] 0 11:55:52 Impotence Active 2019 Anastacio Archer MD Attn: Accountcarmen soler,[address] [facility], [place], [address], [place] [facility] 0 12:00:27 Shoulder pain 49471798 Active 2019 Anastacio Archer MD Attn: Accountcarmen soler,[address] [place], [address], [place] [facility] 0 11:40:57 Uncontrolle d type 2 diabetes mellitus 183985955 Active Cherri Bradshaw MD Attn: Leah g,[address] [facility], [place], [address], [place] [facility] 6 19:01:41 Chronic obstructive pulmonary disease 58002897 Active Cherri Bradshaw MD Attn: Leah g,[address] [place], [address], [place] [facility] 6 19:01:41 Impaired dentition 198182600 Active Cherri Bradshaw MD Attn: Leah soler,[address] [facility], [place], [address], [facility] 6 19:01:41 Tobacco dependence syndrome 10955045 Active Cherri Bradshaw MD Attn: Leah soler,[address] [facility], [place], [address], [facility] 6 19:01:41 Coronary arterioscle rosis in [place] artery 5698639514620 Active Cherri Bradshaw MD Attn: Leah soler,[address] [facility], [place], [address], [facility] 6 19:01:41 Problem Notes None recorded. Procedures Surgical History Date Name Laterality Status Provider Name and Address Organization Details Recorded Time Hernia Repair completed Cherri back MD Attn: Accounting, [facility], [place], [address], [facility] 11/05/2015 14:28:20 Imaging Results None recorded. Procedure Notes None recorded. Medical Equipment None Reported. Allergies No known drug allergies Medications Name Sig Start Date Stop Date Status Note LastModified by Organization Details LastModified Time carvedilol 6.25 mg tablet BID 12/23 completed Not Available Not Available Not Available carvedilol 12.5 mg tablet TAKE 1 TABLET BY MOUTH TWICE DAILY active Not Available Not Available No t Available aspirin 325 mg tablet Take 1 tablet every day by oral route. 12/23 completed Not Available Not Available Not Available sulfamethox azole 800 mg-trimetho prim 160 mg tablet TAKE 1 TABLET BY MOUTH TWICE DAILY FOR 10 DAYS active Not Available Not Available No t Available aspirin 81 mg tablet,geo yed release Take 1 tablet every day by oral route. 03/19 completed Not Available Not Available Not Available tramadol 50 mg tablet 12/23 completed Not Available Not Available Not Available acetaminoph en 500 mg tablet Take 2 tablets every 8 hours by oral route as needed. 03/19 completed Not Available Not Available Not Available glimepiride 2 mg tablet TAKE 1 TABLET BY MOUTH IN THE MORNING active Not Available Not Available No t Available pravastatin 80 mg tablet TAKE 1 TABLET BY MOUTH ONCE DAILY AT BEDTIME active Not Available Not Available No t Available pantoprazol e 40 mg tablet,geo yed release TAKE 1 TABLET BY MOUTH ONCE DAILY active Not Available Not Available No t Available lisinopril 10 mg tablet TAKE 1 TABLET BY MOUTH ONCE DAILY active Not Available Not Available No t Available glimepiride 4 mg tablet Take 1 tablet(s) every day by oral route with meals for 30 days. 12/23 completed Not Available Not Available Not Available fenofibrate 160 mg tablet TAKE 1 TABLET BY MOUTH ONCE DAILY active Not Available Not Available No t Available Fish Oil 03/19 completed Not Available Not Available Not Available NovoFine 30 30 gauge x 1/3 needle 03/19 completed Not Available Not Available Not Available Novofine 32 32 gauge x 1/4 needle 03/19 completed Not Available Not Available Not Available prasugrel 10 mg tablet TAKE 1 TABLET BY MOUTH ONCE DAILY active Not Available Not Available No t Available Levemir FlexTouch U-100 Insulin 100 unit/mL (3 mL) subcutaneou s pen INJECT 60 UNITS SUBCUTANE OUSLY ONCE DAILY IN THE EVENING 03/19 completed Not Available Not Available Not Available Jardiance 10 mg tablet TAKE 1 TABLET BY MOUTH ONCE DAILY active Not Available Not Available No t Available Basaglar KwikPen U-100 Insulin 100 unit/mL (3 mL) subcutaneou s INJECT 60 UNITS SUBCUTANE OUSLY IN THE EVENING active Not Available Not Available No t Available Vitals Date Recorded Body weight Body mass index (BMI) Body height Body temperature Oxygen saturation Oxygen saturation in Arterial blood by Pulse oximetry Heart rate Systolic blood pressure Diastolic blood pressure Provider Name and Address Organization Details Last Updated DateTime 0 51786.2 1 g 28.2 kg/m2 182.88 cm 97.9 [degF] 98 % 98 % 73 /min 118 mm[Hg] 80 mm[Hg] Dianne Truong [place] - [facility] 0 11:15:24 Date Recorded Body height Provider Name an d Address Organization Details Last Updated DateTime 01/08/2020 182.88 cm Anastacio Archer MD Attn: Accounting,[address] [place], [address], [place] [facility] 01/08/2020 12:19:01 Date Recorded Body height Provider Name an d Address Organization Details Last Updated DateTime 03/19/2021 182.88 cm Dianne Truong MA [facility] 15:59:49 Date Recorded Body mass index (BMI) Body weight Body height Oxygen saturation Oxygen saturation in Arterial blood by Pulse oximetry Body temperature Heart rate Systolic blood pressure Diastolic blood pressure Provider Name and Address Organization Details Last Updated DateTime 6 32.1 kg/m2 020175. 75838 g 182.88 cm 96 % 96 % 97.8 [degF] 86 /min 144 mm[Hg] 84 mm[Hg] September ROCIO Alba [facility] 6 14:22:03 Social History Question Answer Notes LastModified by Organizat ion Details LastModified Time Tobacco Smoking Status Current Every Day Smoker September ROCIO Alba null, [facility] 11/05/2015 14:15:57 Do You Have An Advance Directive? No Information not available 11/05/2015 What Is Your Level Of Alcohol Consumption? None Information not available 11/05/2015 What Is Your Level Of Caffeine Consumption? Moderate Information not available 11/05/2015 How Much Tobacco Do You Chew? None Information not available 11/05/2015 Are There Any Guns Present In Your Home? No Information not available 11/05/2015 Hard Of Hearing Or Deaf In One Or Both Ears? No Information not available 11/05/2015 Legally Blind In One Or Both Eyes? No Information not available 11/05/2015 Marital Status Informatio n not available 11/05/2015 What Was The Date Of Your Most Recent Tobacco Screening? 03/19/2021 [email or web address] Information not available 03/19/2021 Performs Monthly Self-breast Exam? No Information not available 11/05/2015 Seat Belts Used Routinely Yes Information not available 11/05/2015 Smoke Alarm In Home Yes Information not available 11/05/2015 How Much Tobacco Do You Smoke? 1 PPD Information not available 11/05/2015 Do You Use Sunscreen Routinely? No Information not available 11/05/2015 Sex: Unknown Functional Status Question Answer Note LastModified by Organization D etails LastModified Time What is your exercise level? None Information not available 11/05/2015 Mental Status None recorded. Family History Relationship Description Onset Age of this Age Resolved Age Notes LastModified by Organization Details LastModified Time Mother Diabetes mellitus asavala Not available 2015 14:15:57 Mother Hypertensive disorder asavala Not available 2015 14:15:57 Sister Diabetes mellitus asavala Not available 2015 14:15:57 Medical History Condition Response Coronary Artery Disease N Other N Atrial Fibrillation N High Blood Pressure Y Thyroid Problems N Kidney or Bladder Problems N Depression N COPD Y Blood Clots Y GI Problems N Skin Problems N Anemia N Heart Attack (NC) Y Diabetes Y Anxiety Disorder N Muscle, Joint, or Bone Problems N Seizures/Epilepsy N Acid Reflux (GERD) Y Cancer N Stroke N Allergies N Asthma N High Cholesterol Y Hepatitis N Liver Disease N Headaches N Osteoporosis N Heart Failure N Immunizations Vaccine Type Date Status Note Provider Nam e and Address Organization Details Recorded Time pneumococcal polysaccharide PPV23 5 completed Cherri Bradshaw MD Attn: Accounting,[address] [place], [address], [facility] 11/05/2015 14:30:04 Tdap 1 completed Cherri Bradshaw MD Attn: Accounting,[address] [place], [address], [facility] 11/05/2015 14:30:04 Past Encounters Encounter ID Performer Location Encounter Start Date Encounter Closed Date Diagnosis/Indication Diagnosis SNOMED-CT Code Diagnosis ICD10 Code [id number] Cherri Bradshaw MD [facility] (Adult Med) [address] [place] [address] 11/05/2015 13:47:29 11/05/2015 18:07:14 General examination of patient 800600594 Z00.01 Uncontroll ed type 2 diabetes mellitus 736122455 E11.65 Screening for malignant neoplasm of prostate 460552817 Z12.5 Screening for malignant neoplasm of colon 032330874 Z12.11 Chronic ob structive pulmonary disease 18147837 J44.9 Impaired dentition 01936 4008 K03.9 Tobacco de pendence syndrome 31079053 F17.290 Coronary arteriosclerosis in [place] artery 5253355211 107 I25.10 [id number] Anastacio Archer MD [facility] (Adult Med) [address] [place] [address] 12/24/2019 10:49:54 12/24/2019 12:10:06 Essential hypertension 96880777 I10 Coronary arteriosclerosis in [place] artery 9565152509 107 I25.10 Uncontroll ed type 2 diabetes mellitus 586867240 E11.65 Chronic ob structive pulmonary disease 09790318 J44.9 Impaired dentition 58977 4008 K03.9 Tobacco de pendence syndrome 44112244 F17.200 History of placement of stent for coronary artery disease 701681194 Z95.5 History of myocardial infarction 528397475 I25.2 Impotence 823837657 N52. 9 [id number] Anastacio Archer MD [facility] (Adult Med) [address] [place] [address] 01/08/2020 12:18:22 01/09/2020 13:18:49 Shoulder pain 04615832 M25.519 Health Concerns Section Related Observation LastModified by Organization Detai ls LastModified Time None Recorded Concern Status LastModified by Organization Details LastModified Time None Recorded Advance Directives Directive N: Payers Encounter Date Sequence Insurance Name Policy Number Policy Sylvester Covered Member ID Sylvester Member ID Guarantor Name 11/05/2015 1 [facility] (PPO) [id number] Royal Qiu [id number] Royal Qiu 12/24/2019 1 [place] [id number] Royal Qiu [id number] Royal Qiu 01/08/2020 1 [place] [id number] Royal Qiu [id number] Royal Qiu Notes Date Note Type Note Provider Name and Address Organization Details Recorded Time 11/05/2015 text/html Diabetes F/UReported bypatient.Review finger sticks:fastin Labs:last A1C result: 11 Context:taking aspirin daily; not missing doses of medications;home blood sugar range high Associated Symptoms:no weight gain; no weight loss; no dizziness; no sweats; no headaches; no confusion; no increased thirst; no increased appetite; no increased urination; no blurred vision; no numbness of feet; no calluses on feet Cherri Bradshaw MD Attn: Accounting,[address] [place], [address], [facility] 11/05/2015 19:02:11 12/24/2019 text/html Here to be established with a PCP. Was seen in ED at [facility] three days ago for dizzinness. He was discharged. Labs unavailable at present Anastacio Archer MD Attn: Accounting,[address] [place], [address], [facility] 12/24/2019 12:04:53 01/08/2020 text/html Has pain in his shoulder extending to his neck Anastacio Archer MD Attn: Accounting,[address] [place], [address], [facility] 01/08/2020 12:24:34
== END 2024-06-14 13:52 | disposition home or self-care (01) ==
PROVIDERS: Emergency Provider Physician Assistant; PCP Family Medicine
DX: S82.142A Displaced bicondylar fracture of left tibia, initial encounter for closed fracture (principal); M47.812 Spondylosis without myelopathy or radiculopathy, cervical region; E11.9 Type 2 diabetes mellitus without complications; J44.9 Chronic obstructive pulmonary disease, unspecified; Z87.442 Personal history of urinary calculi; I10 Essential (primary) hypertension; I25.10 Atherosclerotic heart disease of native coronary artery without angina pectoris; D64.9 Anemia, unspecified; G40.909 Epilepsy, unspecified, not intractable, without status epilepticus; W19.XXXA Unspecified fall, initial encounter; Z79.4 Long term (current) use of insulin
CPT/HCPCS: 70450; 71046; 72125; 72170; 73564; 93971; 99284

== ENCOUNTER 2024-08-03 08:18 | Emergency (ER) | payer MEDICARE, SELFPAY ==
[2024-08-03] VITALS (14 sets, daily range): BP systolic 127–153; BP diastolic 75–84; PULSE 75–85; RESP 13–20; TEMP 36.6; O2SAT 98–100
--- NOTE | ~2024-08-03 | XR_ITS ---
EXAMINATION: XR chest 2V DATE: 08/03/2024 09:06 INDICATION: Dyspnea TECHNIQUE: PA and lateral views of the chest were obtained. COMPARISON: Chest radiograph dated 06/14/2024 FINDINGS: Mild opacities at the bilateral lower lung zones. No pleural effusion or pneumothorax. The cardiomedi astinal silhouette is normal. Median sternotomy wires, ostial markers and mediastinal surgical clips consistent with prior coronary artery bypass grafting. Old anterior sixth rib fracture. IMPRESSION: 1. Mild opacities at the bilateral lower lung zones which could represent atelectasis, mild pulmonary edema, pneumonia or some combination thereof. Reviewed, dictated and finalized at location A. NESS PRACTICES SUPERVISOR IMPRESSION: 1. Mild opacities at the bilateral lower lung zones which could represent atele ctasis, mild pulmonary edema, pneumonia or some combination thereof.
--- OUTSIDE RECORDS SUMMARY | 2024-08-03 08:23 | XMS_ITS | Clinical Summary ---
Author Organization [facility] [address] [facility] Address [address] [place] [address] Care Team Providers Care Net Programmer Name Role Phone Unknown, Notinfile Primary Care Provider Unavail able Salbador Granados MD Unavailable [phone] Rubin Clayton MD Unavailable Miscellaneous, Not In File Unavailable Unava ilable Humphrey Manriquez MD Unavailable [phone] Allergies Active Allergy Reactions Criticality Noted Date [...] (05/01/2021): Added automatically from request for surgery [id number] Cerebrovascular accident (CVA) Surgical History Surgery Date Site/Laterality Comments CARDIAC STENT PLACEMENT CORONARY ARTERY BYPASS GRAFT 05/20/2021 - 06/19/[address] 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 Gender Identity Not on file Sexual Orientation Not on file Obstetrics History Last Filed Vital Signs Vital Sign Reading Time Taken Comments Blood Pressure 129/84 09/15/2021 12:18 PM CDT Pulse 80 09/15/2021 12:18 PM CDT Temperature 36.6 C (97.8 F) 08/21/2021 6:00 AM RECRUIT INSTRUCTOR Respiratory Rate 14 09/15/2021 12:18 PM CDT [...] Completed 05/24/2021 Medical Devices Implanted Type Area Licensed Nuclear Operator Device Identifier Shelf Expiration Date Model / Serial / Lot [employer] [id number] Sensation Plus Statlock 8fr 17.4mm .027in 6in 258mm Fiber Optic - [id number] Implanted:Qty: 1 on 05/01/2021 by [facility]in [facility] 08/14/2023 [id number] / / [id number] Procedures Procedure Name Priority Date/Time Associated Diagnosis Comments HEPATITIS PANEL, ACUTE Routine 05/24/2021 3:48 AM RECRUIT INSTRUCTOR from Last 3 Months or Most Recently Relevant to Health Maintenance Results * Hepatitis panel, acute (05/24/2021 3:48 AM RECRUIT INSTRUCTOR) Hep A IgM Nonreactive Nonreactive [facility] Comment: Interpretive Data: If Hep A IgM Ab is reported as Equivocal, a new sample should be drawn in two weeks for testing. Current interpretive data was last revised on 19. Hep B core IgM Nonreactive Nonreactive [facility] Comment: Interpretive Data If HepB Core IgM Ab is reported as Equivocal, a new sample should be drawn in two weeks for testing. Current interpretive data was last revised on 19. Hep C Ab Nonreactive Nonreactive [facility] Comment: Interpretive Data Nonreactive: Antibodies to HCV not detected. Does NOT exclude the possibility of recent exposure to HCV. Equivocal: Equivocal for HCV antibodies. Supplemental molecular testing will be automatically performed to determine infection status in accordance with current CDC screening recommendations. Reactive: Positive for HCV antibodies. This may represent current or past HCV infection. Supplemental molecular testing will be automatically performed to determine current infection status in accordance with current CDC screening recommendations. Interpretive data was last revised on 2019. HepBsAg Nonreactive Nonreactive [facility] Blood 05/24/2021 3:48 AM RECRUIT INSTRUCTOR 05/24/2021 4:16 AM RECRUIT INSTRUCTOR Stephen Melgar MD LAB MICROBIOLOGY - GENERAL FAVIO KAUR Final Result Performing Organization Address City/State/[facility] Co de Phone Number [facility] [address] Department [place] [address] from Last 3 Months or Most Recently Relevant to Health Maintenance Insurance [facility] PLAN PLAN PLAN HEIDY ALVAREZ [facility] Advance Directives For more information, please contact: [phone] * Full Code (Latest Code Status on File) Date Activated Date Inactivated Comments 08/19/2021 4:45 PM 08/21/2021 7:26 PM * Full Code Date Activated Date Inactivated Comments 07/29/2021 4:33 AM 07/30/2021 9:59 PM * Full Code Date Activated Date Inactivated Comments 05/09/2021 11:04 AM 06/03/2021 7:39 PM * Full Code Date Activated Date Inactivated Comments 05/01/2021 10:48 PM 05/08/2021 10:11 AM Care Teams Net Programmer Relationship Specialty Start Date End Date Unknown, Notinfile PCP - General 05/01/21 [place] [address] [place] [address] Surgeon Cardiothoracic Surgery 05/01/21 [place] [address] [address] [place] [address] Referring Physician Cardiovascular Disease 06/03/21 Miscellaneous, Not In File 07/30/21 Humphrey Manriquez MD [address] [facility] [address] [place] [address] Consulting Physician Neurology 07/30/21
--- OUTSIDE RECORDS SUMMARY | 2024-08-03 08:23 | XMS_ITS | Data Portability ---
Author Organization [facility] Address [address] [place] [address] Assessment No assessment recorded. Plan of Treatment Reminders Order Date Submit Date Provider Last Modified By Organization Details Last Modified Time Details Appointments None recorded. Lab CBC w/ auto diff 2015 016 [facility], [address], [place], [address], 6 11:02:23 CMP, serum or plasma 2015 016 [facility], [address] [facility] [address], [place], [address], 6 11:02:23 hepatitis C Ab, signal-to- cutoff, serum or plasma 2015 016 [facility], [address] [facility] [address], [place], [address], 6 19:01:42 lipid panel, serum 2015 016 [facility], [address] [facility], [address], [place], [address], 6 11:02:23 urinalysis , complete 2015 016 [facility], [address] [facility] [address] [address], [place], [address], 6 11:02:24 HIV (1+O+2) Ab, serum 2015 [facility]16 [facility], [address] [facility], [address], [place], [address], 6 11:02:24 HbA1c (hemoglobi n A1c), blood 2015 016 [facility], [address] [facility] [address], [place], [address], 6 11:02:24 albumin, urine 2015 016 [facility], [address] [facility], [address], [place], [address], 6 11:02:24 hemoglobin , qualitativ e, stool by immunologi c method 2015 016 [facility], [address] [facility] [address], [place], [address], 6 19:01:43 Referral urologist referral - Please call patient to schedule appt. Thank you 2019 020 yang Morales, [address] [facility], [address], [place], [address], 0 08:22:46 diabetic ophthalmol ogy referral 2015 016 [email or web address] [place], [address] [facility], [address], [place], [address], 7 08:28:50 colonoscop y referral - Please call patient to schedule and send consult 2015 016 [email or web address] Not available 6 11:55:26 Procedures None recorded. Surgeries None recorded. Imaging x-ray, chest, 2 view 2015 016 [email or web address] Not available 6 10:56:56 Medication Orders Vane Doran U-100 Insulin 100 unit/mL (3 mL) subcutaneo us [email or web address] [place] [address] Pharm[address], [address] [place], [address], 0 17:45:49 glimepirid e 2 mg tablet 2019 020 [facility], [address] [place], [address], 0 12:02:38 glimepirid e 4 mg tablet 2015 016 [id number], [address] [facility], [place], [id number], 0 11:22:21 Patient TargetsNo targets recorded. Patient Instructions Encounter Date Encounter Id Patient Instructions Last Modified By Organization Details Last Modified Time 11/05/2015 [id number] I have been very so and direct [...] and Address Organization Details Recorded Time [employer] [id number] Active 2019 Anastacio Archer MD Attn: Accountcarmen soler,[address] [facility], [place], [address], [place] [facility] 0 11:48:12 History of myocardial infarction 139096015 Active 2019 Last in 2011 Anastacio Archer MD Attn: Accountcarmen soler,[address] [facility], [place], [address], [place] [facility] 0 11:50:00 History of placement of stent for coronary artery disease 771831968 Active 2019 Anastacio Archer MD Attn: Accountin karlene,[address] [facility], [place], [address], [place] [facility] 0 11:50:39 Gastroesoph ageal reflux disease 900055199 Active 2019 Anastacio Archer MD Attn: Accountcarmen soler,[address] [facility], [place], [address], [place] [facility] 0 11:55:52 Impotence Active 2019 Anastacio Archer MD Attn: Accountcarmen soler,[address] [facility], [place], [address], [place] [facility] 0 12:00:27 Shoulder pain 43391855 Active 2019 Anastacio Archer MD Attn: Accountcarmen soler,[address] [place], [address], [place] [facility] 0 11:40:57 Uncontrolle d type 2 diabetes mellitus 106751664 Active Cherri Bradshaw MD Attn: Leah g,[address] [facility], [place], [address], [place] [facility] 6 19:01:41 Chronic obstructive pulmonary disease 02334741 Active Cherri Bradshaw MD Attn: Leah g,[address] [place], [address], [place] [facility] 6 19:01:41 Impaired dentition 851217070 Active Cherri Bradshaw MD Attn: Leah soler,[address] [facility], [place], [address], [facility] - SI 6 19:01:41 Tobacco dependence syndrome 37391625 Active Cherri Bradshaw MD Attn: Leah soler,[address] [facility], [place], [address], [facility] - SI 6 19:01:41 Coronary arterioscle rosis in [place] artery 1964760392604 Active Cherri Bradshaw MD Attn: Leah soler,[address] [facility], [place], [address], [facility] - SI 6 19:01:41 Problem Notes None recorded. Procedures Surgical History Date Name Laterality Status Provider Name and Address Organization Details Recorded Time Hernia Repair completed Cherri back MD Attn: Accounting, [facility], [place], [address], [facility] - SI 11/05/2015 14:28:20 Imaging Results None [...] Not Available Not Available Not Available prasugrel HCl 10 mg tablet TAKE 1 TABLET BY [...] Address Organization Details Last Updated DateTime 0 10302.2 1 g 28.2 kg/m2 182.88 cm 97.9 [degF] 98 % 98 % 73 /min 118 mm[Hg] 80 mm[Hg] Dianne Truong MA [facility] 0 11:15:24 Date Recorded Body height Provider Name an d Address Organization Details Last Updated DateTime 01/08/2020 182.88 cm Anastacio Archer MD Attn: Accounting,[address] [place], [address], [place] 01/08/2020 12:19:01 Date Recorded Body height Provider Name an d Address Organization Details Last Updated DateTime 03/19/2021 182.88 cm Dianne Truong MA [facility] 15:59:49 Date Recorded Body mass index (BMI) Body weight Body height Oxygen saturation Oxygen saturation in Arterial blood by Pulse oximetry Body temperature Heart rate Systolic blood pressure Diastolic blood pressure Provider Name and Address Organization Details Last Updated DateTime 6 32.1 kg/m2 933101. 85452 g 182.88 cm 96 % 96 % 97.8 [degF] 86 /min 144 mm[Hg] 84 mm[Hg] September ROCIO Alba [facility] 6 14:22:03 Social History Question Answer Notes LastModified by Organizat ion Details LastModified Time Tobacco Smoking Status Current Every Day Smoker September ROCIO Alba [facility], [facility] 11/05/2015 14:15:57 Do You Have An Advance [...] Skin Problems N Anemia N Heart Attack ([place]) Y Diabetes Y Anxiety Disorder N Muscle, [...] completed Cherri Bradshaw MD Attn: Accounting,[address] [place], [address], [facility] 11/05/2015 14:30:04 Tdap 1 completed Cherri Bradshaw MD Attn: Accounting,[address] [place], [address], [facility] 11/05/2015 14:30:04 Past Encounters Encounter ID Performer Location Encounter Start Date Encounter Closed Date Diagnosis/Indication Diagnosis SNOMED-CT Code Diagnosis ICD10 Code Diagnosis Note [id number] Cherri Bradshaw MD [facility] (Adult Med) [address] [place] [address] 11/05/2015 13:47:29 11/05/2015 18:07:14 General examination of patient [id number] Z00.01 55 y/o WM who was last seen by Dr. Brito 8 months ago, he presents to [facility]. His PMHX includes IDDM, GERD, HTN, CAD s/p [place] x 2 as well as stents (Dr. Watson), Hyperchole sterolemia and COPD. Uncontroll ed type 2 diabetes mellitus 906181019 E11.65 He reports a HBA1C of 11, he will be changed to Glimepirid e 4mg po daily instead of 2mg po bid, a diabetic diet was discussed in detail. He previously had tried Metformin, unfortunat john he could not tolerate it. Screening for malignant neoplasm of prostate 815172187 Z12.5 Discussed Screening for malignant neoplasm of colon 715691472 Z12.11 Apparently this could not be done due to his anti platelet therapy, I have given him a stool occult card. Chronic ob structive pulmonary disease 12426860 J44.9 Copy of PFTS? Impaired dentition 39464 4008 K03.9 Apparently this could not be done due to his antiplatel et therapy. Tobacco de pendence syndrome 01027285 F17.290 Cessation was discussed, he has failed Chantix which had helped. Coronary arteriosclerosis in [place] artery 0179834399 107 I25.10 [id number] MD Sean Ramirez (Adult Med) [address] [place] [address] 12/24/2019 10:49:54 12/24/2019 12:10:06 Essential hypertension 84040181 I10 Coronary arteriosclerosis in [place] artery 2312710476 107 I25.10 Uncontroll ed type 2 diabetes mellitus 983562431 E11.65 Chronic ob structive pulmonary disease 05822012 J44.9 Impaired dentition 49268 4008 K03.9 Tobacco de pendence syndrome 15477237 F17.200 History of placement of stent for coronary artery disease 302436781 Z95.5 History of myocardial infarction 399213788 I25.2 Impotence 717371468 N52. 9 [id number] MD Sean Ramirez (Adult Med) [address] [place] [address] 01/08/2020 12:18:22 01/09/2020 13:18:49 Shoulder pain 26794079 M25.519 Rx sent Health Concerns Section Related Observation LastModified by Organization Detai ls LastModified Time None Recorded Concern Status LastModified by Organization Details LastModified Time None Recorded Advance Directives Directive N: Payers Encounter Date Sequence Insurance Name Policy Number Policy Sylvester Covered Member ID Sylvester Member ID Guarantor Name 11/05/2015 1 [facility] (PPO) [id number] Royal Qiu [id number] Royal Qiu 12/24/2019 1 [place] [id number] Royal Qiu [id number] Royal Qiu 01/08/2020 1 [place] [id number] Royal Qiu [id number] Royal Qiu Notes Date Note Type Note [...] feet Cherri Bradshaw MD Attn: Accounting,[address] [place], [address], [facility] - [facility] 11/05/2015 19:02:11 12/24/2019 text/html Here to be established with a PCP. Was seen in ED at [facility] three days ago for dizzinness. He was discharged. Labs unavailable at present Anastacio Archer MD Attn: Accounting,[address] [place], [address], [facility] - [facility] 12/24/2019 12:04:53 01/08/2020 text/html Has pain in his shoulder extending to his neck Anastacio Archer MD Attn: Accounting,[address] [place], [address], [facility] - [facility] 01/08/2020 12:24:34
--- OUTSIDE RECORDS SUMMARY | 2024-08-03 08:23 | XMS_ITS | Clinical Summary ---
Author Organization [facility] Address [address] [place] [address] Phone Care Team Providers Care Title Specialist Name Role Phone Provider, None Primary Care [...] sodium chloride (OCEAN) 0.65 % Solution 1 [place] by Nasal route as needed. 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 Gender Identity Not on file Sexual Orientation Not on file Last Filed Vital Signs Vital Sign Reading Time Taken Comments Blood Pressure 112/73 05/21/2016 9:40 PM BODY DIE MAKER Pulse 99 05/21/2016 9:40 PM BODY DIE MAKER Temperature 36.5 C (97.7 F) 05/21/2016 9:40 PM BODY DIE MAKER Respiratory Rate 16 05/21/2016 9:40 PM BODY DIE MAKER Oxygen Saturation 96% 05/21/2016 9:40 PM BODY DIE MAKER Inhaled Oxygen Concentration - - Weight 99.8 kg (220 lb) 05/21/2016 9:40 PM BODY DIE MAKER Height 182.9 cm (6') 05/21/2016 9:40 PM BODY DIE MAKER Body Mass Index 29.84 05/21/2016 9:40 PM BODY DIE MAKER Plan of Treatment Not on file Insurance MEDICAID [place] Care Teams Title Specialist Relationship Specialty Start Date End Date Provider, None [place] PCP - General 05/21/16
--- OUTSIDE RECORDS SUMMARY | 2024-08-03 08:23 | XMS_ITS | Referral Summary ---
Author Organization [facility] [address] [facility] Address [address] [place] [address] Care Team Providers Care School Supervisor Name Role Phone Unknown, Notinfile Primary Care Provider Unavail able Salbador Granados MD Unavailable [phone] Rubin Clayton MD Unavailable Miscellaneous, Not In File Unavailable Unava ilable Humphrey Manriquez MD Unavailable [phone] Allergies Active Allergy Reactions Criticality Noted Date [...] (05/01/2021): Added automatically from request for surgery [id number] Cerebrovascular accident (CVA) Social History Tobacco Use Types Packs/Day Years Used Date Smoking Tobacco: Former Cigarettes 1 40 Smokeless Tobacco: Never Tobacco Cessation:Ready to Q uit: Yes; Counseling Given: Yes Comments:Stop smoking 04/2021 after [place] Alcohol Use Standard Drinks/Week Comments No 0 [...] on file Legal Sex 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 Gender Identity Not on file Sexual Orientation Not on file Last Filed Vital Signs Vital Sign Reading Time Taken Comments Blood Pressure 129/84 09/15/2021 12:18 PM CDT Pulse 80 09/15/2021 12:18 PM CDT Temperature 36.6 C (97.8 F) 08/21/2021 6:00 AM SHREDD[employer] F[employer] MACHINE Respiratory Rate 14 09/15/2021 12:18 PM CDT Oxygen Saturation 97% 09/15/2021 12:18 PM CDT Inhaled Oxygen Concentration - - Weight 84.8 kg (187 lb) 09/15/2021 12:18 PM CDT Height 167.6 cm (5' 6 ) 09/15/2021 12:18 PM CDT Body Mass Index 30.18 09/15/2021 12:18 PM CDT Plan of Treatment Not on file Medical Devices Implanted Type Area Rheumatology Specialist Device Identifier Shelf Expiration Date Model / Serial / Lot Cartesian [employer]ovascular [employer] [id number] Sensation Plus Statlock 8fr 17.4mm .027in 6in 258mm Fiber Optic - [id number] Implanted:Qty: 1 on 05/01/2021 by Rubin Clayton MD at [facility] 08/14/2023 [id number] / / [id number] Procedures Procedure Name Priority Date/Time Associated Diagnosis Comments HEPATITIS PANEL, ACUTE Routine 05/24/2021 3:48 AM SHREDD[employer]ILL[employer] MACHINE from Last 3 Months or Most Recently Relevant to Health Maintenance Results * Hepatitis panel, acute (05/24/2021 3:48 AM [employer]REDD[employer]ILL[employer] MACHINE) Hep A IgM Nonreactive Nonreactive [facility] Comment: Interpretive Data: If Hep A IgM Ab is reported as Equivocal, a new sample should be drawn in two weeks for testing. Current interpretive data was last revised on 19. Hep B core IgM Nonreactive Nonreactive [facility] Comment: Interpretive Data If HepB Core IgM Ab is reported as Equivocal, a new sample should be drawn in two weeks for testing. Current interpretive data was last revised on 19. Hep C Ab Nonreactive Nonreactive [facility] Comment: Interpretive Data Nonreactive: Antibodies to HCV [...] Nonreactive [facility] DON Blood 05/24/2021 3:48 AM [employer] MACHINE 05/24/2021 4:16 AM [employer] MACHINE Stephen Melgar MD LAB MICROBIOLOGY - GENERAL FAVIO KAUR Final Result [facility] [address] [place] [address] from Last 3 Months or Most Recently Relevant to Health Maintenance Insurance PLAN HEIDY ALVAREZ [id number] [facility] PLAN PLAN PLAN Advance Directives For more information, please contact: [phone] * Full Code (Latest Code Status on File) Date Activated Date Inactivated Comments 08/19/2021 4:45 PM 08/21/2021 7:26 PM * Full Code Date Activated Date Inactivated Comments 07/29/2021 4:33 AM 07/30/2021 9:59 PM * Full Code Date Activated Date Inactivated Comments 05/09/2021 11:04 AM 06/03/2021 7:39 PM * Full Code Date Activated Date Inactivated Comments 05/01/2021 10:48 PM 05/08/2021 10:11 AM Care Teams School Supervisor Relationship Specialty Start Date End Date Unknown, Notinfile PCP - General 05/01/21 [place] [address] [address] [facility] [address] [address] Surgeon Cardiothoracic Surgery 05/01/21 [place] [address] [address] [facility] [address] [facility] [place] [address] Referring Physician Cardiovascular Disease 06/03/21 Miscellaneous, Not In File 07/30/21 Humphrey Manriquez MD [address] [address] Consulting Physician Neurology 07/30/21
--- OUTSIDE RECORDS SUMMARY | 2024-08-03 08:23 | XMS_ITS | Clinical Summary ---
Author Organization [facility] Address [address] [place] [address] Care Team Providers Care Pst Specialist Name Role Phone Unavailable Primary Care Provider Unavailabl e Source Comments [facility],non-owned Affiliates and Associated Physician Practices is amultiple site organization consisting of ambulatory clinics and hospital sitesin [place], [place], [place] and [place]. This disclosure is being madepursuant to the Care Everywhere program and may not contain all information available regarding this patient. Last updated 18.[facility] Allergies Active Allergy Reactions Criticality Noted Date [...] 80 09/03/2021 11:51 AM CDT Temperature 36.9 C (98.4 F) 09/03/2021 11:51 AM CDT Respiratory Rate 18 09/03/2021 11:51 AM CDT Oxygen Saturation 97% 09/03/2021 11:51 AM CDT Inhaled Oxygen Concentration - - Weight 80.9 kg (178 lb 6.4 oz) 09/01/2021 9:00 P M CDT Height 180.3 cm (5' 11 ) 09/01/2021 10:57 PM CDT Body Mass Index 24.88 09/01/2021 9:00 PM CDT Plan of Treatment Health Maintenance Due Date Last Done Comments COLOGUARD (AGES 45-75) - COLON CA SCREENING 1961 COLON MONITORING 1961 COLONOSCOPY - COLON CA SCREENING 1961 CT COLONOGRAPHY - COLON CA SCREENING 1961 Colorectal Cancer Screening 1961 FIT - COLON CA SCREENING 1961 FLEX SIG - COLON CA SCREENING 1961 HIV SCREENING 1976 HEPATITIS C SCREENING 07/05/1979 ZOSTER VACCINE (1 of 2) 2011 PNEUMOCOCCAL VACCINE 50+ (2 of 2 - PCV) 06/19/2016 06/19/2015 PNEUMOCOCCAL VACCINE (2 of 2 - PCV) 06/19/2016 06/19/2015 DTAP/TDAP/TD VACCINES (2 - Td or Tdap) 06/20/2020 06/20/2010 Respiratory Syncytial Virus (RSV) Vaccine Pt: or over 60 yrs (1 - Risk 60-74 years 1-dose series) 2021 DIABETES RETINOPATHY SCREENING 09/02/2021 DIABETES-FOOT EXAM WITH MONOFILAMENT 09/02/2021 DIABETES-HGB A1C 03/06/2022 09/03/2021, 07/2021, 07/29/2021, Additional history exists DIABETES-SERUM CREATININE 09/03/20222021, 09/02/2021, 09/01/2021, Additional history exists COVID-19 VACCINE ( season) 2024 INFLUENZA VACCINE (#1) 2024 DEPRESSION SCREENING 06/20/2024 DIABETES - URINE PROTEIN SCREENING 06/20/2024 HEPATITIS B VACCINE Aged Out No longe r eligible based on patient's age to complete this topic HIB VACCINE Aged Out No longer eligi ble based on patient's age to complete this topic HPV VACCINE Aged Out No longer eligi ble based on patient's age to complete this topic MENINGOCOCCAL (Group B) VACCINE Aged Out No longer eligible based on patient's age to complete [...] (ABNORMAL) HEMOGLOBIN A1C (09/03/2021 2:48 AM CDT) [facility] Hemoglobin A1c 11.5(H) <=5.6 % 09/03/2021 10:28 AM CDT [facility] Estimated Average Glucose 283 mg/dL 09/03/2021 10:28 AM T [facility] Comment: HbA1c Interpretation: Normal : < [...] Palomino MD LAB - CHEMISTRY ORD ERABLES [address] [address], [facility] [phone] * (ABNORMAL) BASIC METABOLIC PANEL (CALCIUM TOTAL) (09/03/2021 2:48 AM CDT) [facility] BUN 7 7 - 26 mg/dL 09/03/2021 3:40 AM CDT [facility] Creatinine 0.68(L) 0.71 - 1.16 mg/dL 09/03/2021 3:40 AM CDT [facility] Sodium 138 136 - 145 mmol/L 09/03/2021 3:40 AM CDT [facility] Potassium 3.6 3.5 - 4.5 mmol/L 09/03/2021 3:40 AM T [facility] Chloride 107 98 - 107 mmol/L 09/03/2021 3:40 AM [facility] CO2 20(L) 22 - 29 mmol/L 09/03/2021 3:40 AM [facility] Glucose 161(H) 70 - 115 mg/dL 09/03/2021 3:40 AM [facility] Calcium 8.5 8.4 - 10.2 mg/dL 09/03/2021 3:40 AM [facility] Anion Gap 15 8 - 18 09/03/2021 3:40 AM [facility] BUN/Creatinine Ratio 10 7 - 23 09/03/2021 3:40 AM [facility] Osmolality Calculated 287 270 - 300 mOsm/kg 09/03/2021 3:40 AM [facility] eGFR by CKD-EPI >90 >=90 mL/min/1.7 3 m2 09/03/2021 3:40 AM [facility] Blood BLOOD SPECIMEN / Unknown Lab Venipuncture / Unknown 09/03/2021 2:48 AM CDT 09/03/2021 3:04 AM T Jeremy Palomino MD LAB - CHEMISTRY ORD ERABLES [facility] [address] [place] [address], [facility] [phone] from Last 3 Months or Most Recently Relevant to Health Maintenance Advance Directives * Full Code (Latest Code Status on File) Date Activated Date Inactivated Comments 09/01/2021 10:29 PM 09/03/2021 5:42 PM
--- OUTSIDE RECORDS SUMMARY | 2024-08-03 08:23 | XMS_ITS | Patient Health Summary ---
Author Organization [facility] Address [address] [place] [address] Care Team Providers Care Director Inbound Sales Name Role Phone Unavailable Primary Care Provider Unavailabl e Note from [facility],non-owned Affiliates and Associated Physician Practices is amultiple site organization consisting of ambulatory clinics and hospital sitesin [place], [place], [place]. This disclosure is being madepursuant to the Care Everywhere program and may not contain all information available regarding this patient. Last updated 18.[facility] Allergies * metaclopramide [Other](Nausea and/or Vomiting) [...] of8 resultswithin the time period is included. Glucose WB/POC 197(H) 70 - 115 mg/dL 09/03/2021 11:53 AM CDT [facility] Specimen Type Venous 09/03/2021 11:53 AM CDT [facility] Blood BLOOD SPECIMEN / Unknown 09/03/2021 11:49 AM CDT 09/03/2021 11:53 AM CDT Jeremy Palomino MD LAB - POINT OF CARE ORDERABLES [facility] [address] [place] [address], [place] [phone] * PT-INR [facility] (09/03/2021 2:48 AM CDT) Only the most recent of2 resultswithin the time period is included. PT 13.4 12.1 - 14.8 Seconds 09/03/2021 3:20 AM CDT [facility] INR 1.0 See Comment 09/03/2021 3:20 AM T [facility] Comment:The suggested therap eutic range for standard coumadin (warfarin) therapy is an INR of 2.0-3.0. For high-risk patients (Mechanical Mitral Valve Prosthesis, etc.), the suggested prophylactic therapeutic range is an INR of 2.5-3.5. Blood BLOOD SPECIMEN / Unknown Lab Venipuncture / Unknown 09/03/2021 2:48 AM CDT 09/03/2021 2:58 AM CDT Jeremy Palomino MD LAB - COAGULATION O RDERABLES [facility] [address] [place] [address], [facility] [phone] * (ABNORMAL) HEMOGLOBIN A1C (09/03/2021 2:48 AM CDT) Hemoglobin A1c 11.5(H) <=5.6 % 09/03/2021 10:28 AM [facility] Estimated Average Glucose 283 mg/dL 09/03/2021 10:28 AM [facility] Comment: HbA1c Interpretation: Normal : < 5.7% Pre-diabetes: 5.7-6.4% Diabetes: Equal to or greater than 6.5% Test results diagnostic of diabetes should be repeated for confirmation. Treatment target values recommended by ADA and other clinical organizations should be used to evaluate metabolic control in patients. Reference: [place] Diabetes Association, Standards of Care in Diabetes [...] Palomino MD LAB - CHEMISTRY ORD ERABLES [facility] [address] [place] [address], [facility] [phone] * (ABNORMAL) CBC W/O DIFFERENTIAL (09/03/2021 2:48 AM CDT) Only the most recent of3 resultswithin the time period is included. WBC 9.9 3.5 - 10.5 10 3/uL 09/03/2021 3:13 AM [facility] RBC 3.76(L) 4.30 - 5.70 10 6/uL 09/03/2021 3:13 AM [facility] Hemoglobin 11.4(L) 12.0 - 17.6 g/dL 09/03/2021 3:13 AM [facility] Hematocrit 34.8(L) 35.2 - 51.7 % 09/03/2021 3:13 AM [facility] MCV 92.6 80.7 - 98.3 fL 09/03/2021 3:13 AM [facility] MCH 30.3 26.7 - 34.0 pg 09/03/2021 3:13 AM [facility] MCHC 32.8 30.8 - 35.9 g/dL 09/03/2021 3:13 AM [facility] Platelet Count 287 150 - 400 10 3/uL 09/03/2021 3:13 AM [facility] RDW-SD 46.2 36.0 - 50.0 fL 09/03/2021 3:13 AM [facility] RDW-CV 13.6 11.2 - 14.8 % 09/03/2021 3:13 AM [facility] MPV 11.3 9.4 - 12.9 fL 09/03/2021 3:13 AM [facility] nRBC Absolute 0.00 0 10 3/uL 09/03/2021 3:13 AM [facility] nRBC Auto 0.0 0 /100 WBC 09/03/2021 3:13 AM [facility] Blood BLOOD SPECIMEN / Unknown Lab Venipuncture / Unknown 09/03/2021 2:48 AM CDT 09/03/2021 3:04 AM CDT Jeremy Palomino MD LAB - HEMATOLOGY OR DERABLES [facility] [address] [place] [address], [facility] [phone] * (ABNORMAL) BASIC METABOLIC PANEL (CALCIUM TOTAL) (09/03/2021 2:48 AM CDT) Only the most recent of2 resultswithin the time period is included. BUN 7 7 - 26 mg/dL 09/03/2021 3:40 AM [facility] Creatinine 0.68(L) 0.71 - 1.16 mg/dL 09/03/2021 3:40 AM [facility] Sodium 138 136 - 145 mmol/L 09/03/2021 3:40 AM [facility] Potassium 3.6 3.5 - 4.5 mmol/L 09/03/2021 3:40 AM [facility] Chloride 107 98 - 107 mmol/L [...] Palomino MD LAB - CHEMISTRY ORD ERABLES [facility] [address] [place] [address], [facility] [phone] * CT BRAIN STROKE (09/02/2021 2:25 PM [...] infarct identified. Dictated by Vini Reyes MD, Systems Program Manager I, Dr. VALENTINE CESPEDES have personally reviewed and interpreted this examination/study. This report was electronically signed by VALENTINE CESPEDES on 09/02/2021 3:51 PM . Narrative 09/02/2021 3:51 PM CDT EXAM: HEAD CT WITHOUT CONTRAST HISTORY: I63.9: Cerebrovascular accident (CVA), unspecified mechanism. COMPARISON: MRI brain 09/02/2021, CT brain 09/01/2021. TECHNIQUE: Using a multidetector scanner, axial images were acquired [...] infarct identified. Dictated by Vini Reyes MD, Systems Program Manager I, Dr. VALENTINE CESPEDES have personally reviewed [...] JAQUI CULP on 09/02/2021 11:27 AM . Narrative 09/02/2021 11:27 AM CDT MR angiography of the neck with intravenous contrast INDICATION: Subacute infarct in right [employer] territory. TECHNIQUE: MR angiogram of the neck was performed according to standard protocol after administration of 8 mL of Gadavist intravenously. MIP reformatted images were obtained. COMPARISON: CT angiogram of the brain from 09/01/2021 was reviewed. Procedure Note Jaqui Culp MD - 09/02/2021 MR angiography of the neck with intravenous contrast INDICATION: Subacute infarct in right [employer] territory. TECHNIQUE: MR angiogram of the neck [...] AM CDT IMPRESSION: 1.Subacute infarct in right [employer] territory with small-volume hemorrhagic transformation. Mild noncritical mass effect. 2.Intraventricular extension of hemorrhage. No hydrocephalus. 3.No significant change since CT from 09/01/2021. This report was electronically signed by JAQUI CULP on 09/02/2021 11:11 AM . Narrative 09/02/2021 11:11 [...] cells are clear. The orbits are unremarkable. Procedure Note Jaqui Culp [...] are unremarkable. IMPRESSION: 1.Subacute infarct in right [employer] territory with small-volume hemorrhagic transformation. Mild noncritical [...] 0.035(H) <0.032 ng/mL 09/02/2021 5:13 AM CDT [facility] Blood BLOOD SPECIMEN / Unknown Lab Venipuncture / Unknown 09/02/2021 4:20 AM CDT 09/02/2021 4:42 AM CDT Jeremy Palomino MD LAB - CHEMISTRY ORD ERABLES [facility] [address] [place] [address], [facility] [phone] * (ABNORMAL) URINALYSIS REFLEX TO MICROSCOPIC NO CULTURE (09/02/2021 3:33 AM CDT) Color UA Yellow Straw, Yellow 09/02/2021 3:48 AM [facility] Clarity UA Clear Clear 09/02/2021 3:48 AM [facility] Specific [place] UA 1.047(H) 1.005 - 1.030 09/02/2021 3:48 AM [facility] pH UA 7.0 5.0 - 8.0 pH 09/02/2021 3:48 AM [facility] Protein UA Negative Negative 09/02/2021 3:48 AM [facility] Glucose UA 3+(A) Negative 09/02/2021 3:48 AM [facility] Ketone UA 1+(A) Negative 09/02/2021 3:48 AM [facility] Bilirubin UA Negative Negative 09/02/2021 3:48 AM [facility] Blood UA Negative Negative 09/02/2021 3:48 AM [facility] Nitrite UA Negative Negative 09/02/2021 3:48 AM [facility] Leukocyte Esterase 2+(A) Negative 09/02/2021 3:48 AM [facility] Urobilinogen UA Negative Negative mg/dL 09/02/2021 3:48 AM [facility] RBC UA 6-10(A) None Seen, 0-2, 3-5 /HPF 09/02/2021 3:48 AM [facility] WBC UA 6-10(A) None Seen, 0-5 /HPF 09/02/2021 3:48 AM [facility] Bacteria UA Trace(A) None /HPF 09/02/2021 3:48 AM [facility] Squamous Epithelial Cells UA 0-2 None Seen, 0-2, 3-5 /HPF 09/02/2021 3:48 AM [facility] Mucus UA 1+ /LPF 09/02/2021 3:48 AM [facility] Urine URINE SPECIMEN OBTAINED BY CLEAN CATCH PROCEDURE / Unknown Collection / Unknown 09/02/2021 3:33 AM CDT 09/02/2021 3:38 AM CDT Narrative [facility] - 09/02/2021 3:48 AM CDT Jeremy Palomino MD LAB - URINALYSIS OR DERABLES [facility] [address] [place] [address], [facility] [phone] * URINE DRUG SCREEN IMMUNOASSAY (09/02/2021 3:33 AM CDT) [facility] Amphetamines Screen Urine Negative Negative: < 1000 ng/mL 09/02/2021 3:57 AM CDT [facility] Barbiturates Screen Urine Negative Negative: < 200 ng/mL 09/02/2021 3:57 AM [facility] Benzodiazepine Screen Urine Negative Negative: < 200 ng/mL 09/02/2021 3:57 AM T [facility] Opiates Urine Negative Negative: < 300 ng/mL 09/02/2021 3:57 AM [facility] Cocaine Metabolites Urine Negative Negative: < 300 ng/mL 09/02/2021 3:57 AM CDT [facility] Phencyclidine Screen Urine Negative Negative: < 25 ng/ml 09/02/2021 3:57 AM T [facility] Cannabinoids Screen Urine Negative Negative: <50 ng/mL 09/02/2021 3:57 AM [facility] Methadone Screen Urine Negative Negative: < 300 ng/mL 09/02/2021 3:57 AM [facility] Fentanyl Screen Urine Negative Negative: <1.0 ng/mL 09/02/2021 3:57 AM T [facility] Urine URINE / Unknown Collection / Unknown 09/02/2021 3:33 AM CDT 09/02/2021 3:38 AM CDT Narrative [facility] - 09/02/2021 3:57 AM CDT The Urine Toxicology Screening Panel does not screen for Propoxyphene, Meprobamate, Carisoprodol, Trazodone, ltfa-ivx-ksxoffc medications and/or volatiles (Acetone, Isopropanol, Methanol or Ethylene Glycol). Ethanol, Salicylate, Acetaminophen, Tricyclic Antidepressants and several therapeutic drugs may be individually assayed in serum or plasma specimen. Toxicology testing by the [facility] is an aid to medical diagnosis and treatment of patients. No documented chain of custody was maintained. Results are intended to be used for clinical purposes only. Jeremy Palomino MD LAB - URINE LACE WINDER RY ORDERABLES [facility] [address] [place] [address], [place] [phone] * PHOSPHORUS BLOOD (09/02/2021 2:08 AM CDT) Only the most recent of2 resultswithin the time period is included. Phosphorus 3.2 2.8 - 5.1 mg/dL 09/02/2021 3:17 AM CDT [facility] Blood BLOOD SPECIMEN / Unknown Lab Venipuncture / Unknown 09/02/2021 2:08 AM CDT 09/02/2021 2:49 AM CDT Jeremy Palomino MD LAB - CHEMISTRY ORD ERABLES Performing Organization Address City/[facility]/ZIP Co de Phone Number [facility] [address] [place] [address], [place] [phone] * MAGNESIUM BLOOD (09/02/2021 2:08 AM CDT) Only the most recent of2 resultswithin the time period is included. Magnesium 1.8 1.6 - 2.6 mg/dL 09/02/2021 3:17 AM CDT [facility] Blood BLOOD SPECIMEN / Unknown Lab Venipuncture / Unknown 09/02/2021 2:08 AM CDT 09/02/2021 2:49 AM CDT Jeremy Palomino MD LAB - CHEMISTRY ORD ERABLES Performing Organization Address City/[facility]/ZIP Co de Phone Number [address] [address], [place] [phone] * (ABNORMAL) COMPREHENSIVE METABOLIC PANEL (09/01/2021 10:59 PM CDT) BUN 7 7 - 26 mg/dL 09/02/2021 12:21 AM [facility] Creatinine 0.67(L) 0.71 - 1.16 mg/dL 09/02/2021 12:21 AM [facility] Sodium 140 136 - 145 mmol/L 09/02/2021 12:21 AM [facility] Potassium 3.6 3.5 - 4.5 mmol/L 09/02/2021 12:21 AM [facility] Chloride 105 98 - 107 mmol/L 09/02/2021 12:21 AM [facility] CO2 25 22 - 29 mmol/L 09/02/2021 12:21 AM [facility] Glucose 136(H) 70 - 115 mg/dL 09/02/2021 12:21 AM [facility] Calcium 9.3 8.4 - 10.2 mg/dL 09/02/2021 12:21 AM [facility] Protein Total 7.3 6.0 - 8.3 g/dL 09/02/2021 12:21 AM [facility] Albumin 3.6 3.4 - 5.0 g/dL 09/02/2021 12:21 AM [facility] Bilirubin Total 0.6 0.2 - 1.2 mg/dL 09/02/2021 12:21 AM [facility] Alkaline Phosphatase 92 40 - 150 U/L 09/02/2021 12:21 AM [facility] ALT 9 5 - 55 U/L 09/02/2021 12:21 AM [facility] AST 11 5 - 34 U/L 09/02/2021 12:21 AM [facility] Anion Gap 14 8 - 18 09/02/2021 12:21 AM [facility] BUN/Creatinine Ratio 10 7 - 23 09/02/2021 12:21 AM [facility] Osmolality Calculated 290 270 - 300 mOsm/kg 09/02/2021 12:21 AM [facility] Albumin/Globulin Ratio 1.0(L) 1.1 - 2.3 09/02/2021 12:21 AM [facility] eGFR by CKD-EPI >90 >=90 mL/min/1.7 3 m2 09/02/2021 12:21 AM CDT [facility] Blood BLOOD SPECIMEN / Unknown Lab Venipuncture / Unknown 09/01/2021 10:59 PM CDT 09/01/2021 11:55 PM CDT Jeremy Palomino MD LAB - CHEMISTRY ORD ERABLES Performing Organization Address [facility] Co de Phone Number [facility] [address] [place] [address], [facility] [phone] * EKG 12-LEAD (09/01/2021 10:46 PM CDT) Ventricular Rate 87 BPM [facility] Atrial Rate 87 BPM [facility] P-R Interval 194 ms [facility] QRS Duration ms 90 ms [facility] Q-T Interval ms 366 ms [facility] QTC Calculation (Bezet) 440 ms SL MUSE Calculated P [place] 54 degrees SL MUSE Calculated R [place] -35 degrees SL MUSE Calculated T [place] 85 degrees [facility] Interpretation EKG NORMAL SINUS RHYTHM LEFT AXIS DEVIATION ANTEROLATERAL INFARCT , AGE UNDETERMINED ABNORMAL ECG WHEN COMPARED WITH ECG OF 30-AUG-2006 06:00, QRS AXIS SHIFTED LEFT ANTERIOR INFARCT IS NOW PRESENT ANTEROLATERAL INFARCT IS NOW PRESENT Confirmed by Rian Mcfarland ([id number]) on 09/06/2021 11:27:36 PM [facility] 09/01/2021 10:4 6 PM CDT 09/06/2021 11:27 PM CDT Jeremy Palomino MD ECG ORDERABLES Performing Organization Address [facility] Co de Phone Number [facility] * CT ANGIO BRAIN (09/01/2021 9:18 PM CDT) Anatomical Region Laterality Modality Head Computed Tomogra phy 09/01/2021 11:3 0 PM CDT Impressions 09/02/2021 8:20 AM CDT IMPRESSION: 1.No aneurysms, spot sign, or signs of a high flow vascular malformation identified to account for the patient's right [employer] infarct with hemorrhagic transformation. 2.The dural venous sinuses are not well opacified with contrast and cannot be evaluated. These findings were discussed in detail with the patient's care provider, Dr. [place] by Dr. Sebastian via telephone at 9:35 PM on 09/01/2021 with readback comprehension and verification. Dictated by Coco Sebastian MD (vice president regulatory). I, Dr. VALENTINE CESPEDES have personally reviewed and interpreted this examination/study. This report was electronically signed by VALENTINE CESPEDES on 09/02/2021 8:20 AM . Narrative 09/02/2021 8:20 [...] identified to account for the patient's right [employer] infarct withhemorrhagic transformation. 2.The dural venous sinuses are not well opacified with contrast andcannot be evaluated. These findings were discussed in detail with the patient's careprovider, Dr. Victoria by Dr. Sebastian via telephone at 9:35 PM on 09/01/2021 with readback comprehension and verification. Dictated by Coco Sebastian MD (vice president regulatory). I, Dr. VALENTINE CESPEDES have personally reviewed and interpreted this examination/study. This report was electronically signed by VALENTINE CESPEDES on09/02/2021 8:20 AM . Jeremy Palomino MD CT ORDERABLES
--- OUTSIDE RECORDS SUMMARY | 2024-08-03 08:23 | XMS_ITS | Clinical Summary ---
Author Organization [facility] Address [address] [place] [address] Care Team Providers Care Painter Barrel Name Role Phone Unavailable Primary Care Provider [...]
--- OUTSIDE RECORDS SUMMARY | 2024-08-03 08:23 | XMS_ITS | Referral Summary ---
Author Organization [facility] Address [address] [place] [address] Care Team Providers Care Mobile Equipment Mechanic Name Role Phone Unavailable Primary Care Provider Unavailabl e Source Comments [facility],non-owned Affiliates and Associated Physician Practices is amultiple site organization consisting of ambulatory clinics and hospital sitesin [place], [place], [place] and [place]. This disclosure is being madepursuant to the Care Everywhere program and may not contain all information available regarding this patient. Last updated 18.[facility] Allergies Active Allergy Reactions Criticality Noted Date [...] 11.5(H) <=5.6 % 09/03/2021 10:28 AM CDT [facility] Estimated Average Glucose 283 mg/dL 09/03/2021 10:28 AM T [facility] Comment: HbA1c Interpretation: Normal : < 5.7% Pre-diabetes: 5.7-6.4% Diabetes: Equal to or greater than 6.5% Test results diagnostic of diabetes should be repeated for confirmation. Treatment target values recommended by ADA and other clinical organizations should be used to evaluate metabolic control in patients. Reference: [place] Diabetes Association, Standards of Care in Diabetes [...] Palomino MD LAB - CHEMISTRY ORD ERABLES [facility] [address] [place] [address], [facility] [phone] * (ABNORMAL) BASIC METABOLIC PANEL (CALCIUM TOTAL) (09/03/2021 2:48 AM CDT) BUN 7 7 - 26 mg/dL 09/03/2021 3:40 AM [facility] Creatinine 0.68(L) 0.71 - 1.16 mg/dL 09/03/2021 3:40 AM [facility] Sodium 138 136 - 145 mmol/L 09/03/2021 3:40 AM [facility] Potassium 3.6 3.5 - 4.5 mmol/L 09/03/2021 3:40 AM [facility] Chloride 107 98 - 107 mmol/L 09/03/2021 3:40 AM [facility] CO2 20(L) 22 - 29 mmol/L 09/03/2021 3:40 AM [facility] Glucose 161(H) 70 - 115 mg/dL 09/03/2021 3:40 AM [facility] Calcium 8.5 8.4 - 10.2 mg/dL 09/03/2021 3:40 AM [facility] Anion Gap 15 8 - 18 09/03/2021 3:40 AM [facility] BUN/Creatinine Ratio 10 7 - 23 09/03/2021 3:40 AM [facility] Osmolality Calculated 287 270 - 300 mOsm/kg 09/03/2021 3:40 AM [facility] eGFR by CKD-EPI >90 >=90 mL/min/1.7 3 m2 09/03/2021 3:40 AM [facility] Blood BLOOD SPECIMEN / Unknown Lab Venipuncture / Unknown 09/03/2021 2:48 AM CDT 09/03/2021 3:04 AM T Jeremy Palomino MD LAB - CHEMISTRY ORD ERABLES [facility] [address] [place] [address], [facility] [phone] from Last 3 Months or Most Recently Relevant to Health Maintenance Advance Directives * Full Code (Latest Code Status on File) Date Activated Date Inactivated Comments 09/01/2021 10:29 PM 09/03/2021 5:42 PM
--- NOTE | 2024-08-03 08:38 | ECG_ITS ---
Test Date: 2024-08-03 09:18:26 Measurements Intervals [place] Rate: 81 P: 89 PA: 258 QRS: -56 QRSD: 109 T: 113 QT: 347 QTc: 404 Interpretive Statements SINUS RHYTHM WITH FIRST DEGREE AV BLOCK WITH OCCASIONAL VENTRICULAR PREMATURE COMPLEXES LEFT ANTERIOR FASCICULAR BLOCK ANTEROSEPTAL INFARCT, AGE INDETERMINATE BASELINE ARTIFACT- I, II, III, AVR, AVL, AVF, V1 ABNORMAL ECG Compared to ECG 04/17/2024 23:54:15 NO SIGNIFICANT CHANGE Electronically Signed On 08-03-2024 10:03:24 HOME CARE CONSULTANT by Cole Roland D.O.
[2024-08-03 08:50] LABS: Basophils Percent Auto 0.4 % (0.2-1.2); Eosinophils Absolute Auto 0.3 K/mm3 (0-0.3); Eosinophils Percent Auto 2.5 % (0-4.4); Hematocrit 33.9 % (42.0-52.0); Hemoglobin 10.9 g/dL (14.0-18.0); Immature Granulocyte Absolute 0.03 K/mm3 (0.00-0.031); Immature Granulocyte Percent A 0.3 % (0-0.5); Lymphocytes Absolute Auto 1.57 K/mm3 (0.9-3.2); Lymphocytes Percent Auto 14.3 % (18.3-44.2); Mean Corpuscular HGB Conc 32.2 g/dl (32-36); Mean Corpuscular Hemoglobin 31.1 pg (26-34); Mean Corpuscular Volume 96.9 fl (80-100); Mean Platelet Volume 11.2 fl (7.4-10.4); Monocytes Absolute Auto 1.2 K/mm3 (0.1-0.6); Monocytes Percent Auto 11.3 % (2.6-8.5); Neutrophils Absolute Auto 7.9 K/mm3 (1.3-6.7); Neutrophils Percent Auto 71.2 % (45.5-73.1); Platelet Count Result 250 k/mm3 (150-375); Red Cell Distribution Width 14.3 % (11.5-14.5)
[2024-08-03 09:03] LABS: Alanine Aminotransferase 15 U/L (6-50); Albumin Level 4.2 g/dL (3.5-5.1); Alkaline Phosphatase 64 U/L (38-126); Anion Gap 15 mmol/L (4-12); Aspartate Amino Transferase 17 U/L (17-59); Bilirubin,Total 0.5 mg/dL (0.2-1.3); Blood Urea Nitrogen 23 mg/dL (9-20); Carbon Dioxide 19 mmol/L (22-30); Chloride 106 mmol/L (98-107); Estimated Glomerular Filt Rate 59; Glucose 191 mg/dL (65-110); Potassium 4.1 mmol/L (3.4-5.0); Sodium 140 mmol/L (137-145)
--- OUTSIDE RECORDS SUMMARY | 2024-08-03 09:10 | XMS_ITS | Clinical Summary ---
Author Organization [facility] Address [address] [place] [address] Care Team Providers Care Manager Route Name Role Phone Unavailable Primary Care Provider Unavailabl e Source Comments [facility],non-owned Affiliates and Associated Physician Practices is amultiple site organization consisting of ambulatory clinics and hospital sitesin [place], [place], [place] and [place]. This disclosure is being madepursuant to the Care Everywhere program and may not contain all information available regarding this patient. Last updated 18.[facility] Allergies Active Allergy Reactions Criticality Noted Date [...] (ABNORMAL) HEMOGLOBIN A1C (09/03/2021 2:48 AM CDT) [facility] Hemoglobin A1c 11.5(H) <=5.6 % 09/03/2021 10:28 AM CDT [facility] Estimated Average Glucose 283 mg/dL 09/03/2021 10:28 AM T [facility] Comment: HbA1c Interpretation: Normal : < 5.7% Pre-diabetes: 5.7-6.4% Diabetes: Equal to or greater than 6.5% Test results diagnostic of diabetes should be repeated for confirmation. Treatment target values recommended by ADA and other clinical organizations should be used to evaluate metabolic control in patients. Reference: [place] Diabetes Association, Standards of Care in Diabetes [...] Palomino MD LAB - CHEMISTRY ORD ERABLES [address] [address], [facility] [phone] * (ABNORMAL) BASIC METABOLIC PANEL (CALCIUM TOTAL) (09/03/2021 2:48 AM CDT) [facility] BUN 7 7 - 26 mg/dL 09/03/2021 3:40 AM CDT [facility] Creatinine 0.68(L) 0.71 - 1.16 mg/dL 09/03/2021 3:40 AM CDT [facility] Sodium 138 136 - 145 mmol/L 09/03/2021 3:40 AM CDT [facility] Potassium 3.6 3.5 - 4.5 mmol/L 09/03/2021 3:40 AM T [facility] Chloride 107 98 - 107 mmol/L 09/03/2021 3:40 AM [facility] CO2 20(L) 22 - 29 mmol/L 09/03/2021 3:40 AM [facility] Glucose 161(H) 70 - 115 mg/dL 09/03/2021 3:40 AM [facility] Calcium 8.5 8.4 - 10.2 mg/dL 09/03/2021 3:40 AM [facility] Anion Gap 15 8 - 18 09/03/2021 3:40 AM [facility] BUN/Creatinine Ratio 10 7 - 23 09/03/2021 3:40 AM [facility] Osmolality Calculated 287 270 - 300 mOsm/kg 09/03/2021 3:40 AM [facility] eGFR by CKD-EPI >90 >=90 mL/min/1.7 3 m2 09/03/2021 3:40 AM [facility] Blood BLOOD SPECIMEN / Unknown Lab Venipuncture / Unknown 09/03/2021 2:48 AM CDT 09/03/2021 3:04 AM T Jeremy Palomino MD LAB - CHEMISTRY ORD ERABLES [facility] [address] [place] [address], [facility] [phone] from Last 3 Months or Most Recently Relevant to Health Maintenance Advance Directives * Full Code (Latest Code Status on File) Date Activated Date Inactivated Comments 09/01/2021 10:29 PM 09/03/2021 5:42 PM
--- OUTSIDE RECORDS SUMMARY | 2024-08-03 09:10 | XMS_ITS | Clinical Summary ---
Author Organization [facility] Address [address] [place] [address] Phone Care Team Providers Care Compensation Agent Name Role Phone Provider, None Primary Care [...] chloride (OCEAN) 0.65 % Solution 1 [place] by Nasal route as needed. 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 [employer] Gender Identity Not on file Sexual Orientation Not on file Last Filed Vital Signs Vital Sign Reading Time Taken Comments Blood Pressure 112/73 05/21/2016 9:40 PM [employer] Pulse 99 05/21/2016 9:40 PM [employer] Temperature 36.5 C (97.7 F) 05/21/2016 9:40 PM [employer] Respiratory Rate 16 05/21/2016 9:40 PM [employer] Oxygen Saturation 96% 05/21/2016 9:40 PM [employer] Inhaled Oxygen Concentration - - Weight 99.8 kg (220 lb) 05/21/2016 9:40 PM [employer]OMIC [employer]ECA[employer] Height 182.9 cm (6') 05/21/2016 9:40 PM [employer] Body Mass Index 29.84 05/21/2016 9:40 PM [employer] Plan of Treatment Not on file Insurance MEDICAID [place] Care Teams Compensation Agent Relationship Specialty Start Date End Date Provider, None [place] PCP - General 05/21/16
--- OUTSIDE RECORDS SUMMARY | 2024-08-03 09:10 | XMS_ITS | Clinical Summary ---
Author Organization [facility] Address [address] [place] [address] Care Team Providers Care Electrical Test Engineer Name Role Phone Unavailable Primary Care Provider [...]
--- OUTSIDE RECORDS SUMMARY | 2024-08-03 09:10 | XMS_ITS | Referral Summary ---
Author Organization [facility] Address [address] [place] [address] Care Team Providers Care Obstetrics And Gynecology Professor Name Role Phone Unavailable Primary Care Provider Unavailabl e Source Comments [facility],non-owned Affiliates and Associated Physician Practices is amultiple site organization consisting of ambulatory clinics and hospital sitesin [place], [place], [place] and [place]. This disclosure is being madepursuant to the Care Everywhere program and may not contain all information available regarding this patient. Last updated 18.[facility] Allergies Active Allergy Reactions Criticality Noted Date [...] 11.5(H) <=5.6 % 09/03/2021 10:28 AM CDT [facility] Estimated Average Glucose 283 mg/dL 09/03/2021 10:28 AM T [facility] Comment: HbA1c Interpretation: Normal : < 5.7% Pre-diabetes: 5.7-6.4% Diabetes: Equal to or greater than 6.5% Test results diagnostic of diabetes should be repeated for confirmation. Treatment target values recommended by ADA and other clinical organizations should be used to evaluate metabolic control in patients. Reference: [place] Diabetes Association, Standards of Care in Diabetes [...] MD LAB - CHEMISTRY ORD ERABLES [facility] [address] [place] [address], [facility] [phone] * (ABNORMAL) BASIC METABOLIC PANEL (CALCIUM TOTAL) (09/03/2021 2:48 AM CDT) BUN 7 7 - 26 mg/dL 09/03/2021 3:40 AM [facility] Creatinine 0.68(L) 0.71 - 1.16 mg/dL 09/03/2021 3:40 AM [facility] Sodium 138 136 - 145 mmol/L 09/03/2021 3:40 AM [facility] Potassium 3.6 3.5 - 4.5 mmol/L 09/03/2021 3:40 AM [facility] Chloride 107 98 - 107 mmol/L 09/03/2021 3:40 AM [facility] CO2 20(L) 22 - 29 mmol/L 09/03/2021 3:40 AM [facility] Glucose 161(H) 70 - 115 mg/dL 09/03/2021 3:40 AM [facility] Calcium 8.5 8.4 - 10.2 mg/dL 09/03/2021 3:40 AM [facility] Anion Gap 15 8 - 18 09/03/2021 3:40 AM [facility] BUN/Creatinine Ratio 10 7 - 23 09/03/2021 3:40 AM [facility] Osmolality Calculated 287 270 - 300 mOsm/kg 09/03/2021 3:40 AM [facility] eGFR by CKD-EPI >90 >=90 mL/min/1.7 3 m2 09/03/2021 3:40 AM [facility] Blood BLOOD SPECIMEN / Unknown Lab Venipuncture / Unknown 09/03/2021 2:48 AM CDT 09/03/2021 3:04 AM T Jeremy Palomino MD LAB - CHEMISTRY ORD ERABLES [facility] [address] [place] [address], [facility] [phone] from Last 3 Months or Most Recently Relevant to Health Maintenance Advance Directives * Full Code (Latest Code Status on File) Date Activated Date Inactivated Comments 09/01/2021 10:29 PM 09/03/2021 5:42 PM
--- OUTSIDE RECORDS SUMMARY | 2024-08-03 09:10 | XMS_ITS | Patient Health Summary ---
Author Organization [facility] Address [address] [place] [address] Care Team Providers Care Class 1 Owner Operator Name Role Phone Unavailable Primary Care Provider Unavailabl e [facility],non-owned Affiliates and Associated Physician Practices is amultiple site organization consisting of ambulatory clinics and hospital sitesin [place], [place], [place] and [place]. This disclosure is being madepursuant to the Care Everywhere program and may not contain all information available regarding this patient. Last updated 18.[facility] Allergies * metaclopramide [Other](Nausea and/or Vomiting) [...] mg/dL 09/03/2021 11:53 AM CDT [facility] Specimen Type Venous 09/03/2021 11:53 AM CDT [facility] Blood BLOOD SPECIMEN / Unknown 09/03/2021 11:49 AM CDT 09/03/2021 11:53 AM CDT Jeremy Palomino MD LAB - POINT OF CARE ORDERABLES [facility] [address] [place] [address], [place] [phone] * PT-INR [facility] (09/03/2021 2:48 AM CDT) Only the most recent of2 resultswithin the time period is included. PT 13.4 12.1 - 14.8 Seconds 09/03/2021 3:20 AM CDT [facility] INR 1.0 See Comment 09/03/2021 3:20 AM T [facility] Comment:The suggested therap eutic range for standard coumadin (warfarin) therapy is an INR of 2.0-3.0. For high-risk patients (Mechanical Mitral Valve Prosthesis, etc.), the suggested prophylactic therapeutic range is an INR of 2.5-3.5. Blood BLOOD SPECIMEN / Unknown Lab Venipuncture / Unknown 09/03/2021 2:48 AM CDT 09/03/2021 2:58 AM CDT Jeremy Palomino MD LAB - COAGULATION O RDERABLES [facility] [address] [place] [address], [facility] [phone] * (ABNORMAL) HEMOGLOBIN A1C (09/03/2021 2:48 AM CDT) Hemoglobin A1c 11.5(H) <=5.6 % 09/03/2021 10:28 AM [facility] Estimated Average Glucose 283 mg/dL 09/03/2021 10:28 AM [facility] Comment: HbA1c Interpretation: Normal : < 5.7% Pre-diabetes: 5.7-6.4% Diabetes: Equal to or greater than 6.5% Test results diagnostic of diabetes should be repeated for confirmation. Treatment target values recommended by ADA and other clinical organizations should be used to evaluate metabolic control in patients. Reference: [place] Diabetes Association, Standards of Care in Diabetes [...] - CHEMISTRY ORD ERABLES [facility] [address] [place] [address], [facility] [phone] * (ABNORMAL) CBC W/O DIFFERENTIAL (09/03/2021 2:48 AM CDT) Only the most recent of3 resultswithin the time period is included. WBC 9.9 3.5 - 10.5 10 3/uL 09/03/2021 3:13 AM [facility] RBC 3.76(L) 4.30 - 5.70 10 6/uL 09/03/2021 3:13 AM [facility] Hemoglobin 11.4(L) 12.0 - 17.6 g/dL 09/03/2021 3:13 AM [facility] Hematocrit 34.8(L) 35.2 - 51.7 % 09/03/2021 3:13 AM [facility] MCV 92.6 80.7 - 98.3 fL 09/03/2021 3:13 AM [facility] MCH 30.3 26.7 - 34.0 pg 09/03/2021 3:13 AM [facility] MCHC 32.8 30.8 - 35.9 g/dL 09/03/2021 3:13 AM [facility] Platelet Count 287 150 - 400 10 3/uL 09/03/2021 3:13 AM [facility] RDW-SD 46.2 36.0 - 50.0 fL 09/03/2021 3:13 AM [facility] RDW-CV 13.6 11.2 - 14.8 % 09/03/2021 3:13 AM [facility] MPV 11.3 9.4 - 12.9 fL 09/03/2021 3:13 AM [facility] nRBC Absolute 0.00 0 10 3/uL 09/03/2021 3:13 AM [facility] nRBC Auto 0.0 0 /100 WBC 09/03/2021 3:13 AM [facility] Blood BLOOD SPECIMEN / Unknown Lab Venipuncture / Unknown 09/03/2021 2:48 AM CDT 09/03/2021 3:04 AM CDT Jeremy Palomino MD LAB - HEMATOLOGY OR DERABLES [facility] [address] [place] [address], [facility] [phone] * (ABNORMAL) BASIC METABOLIC PANEL (CALCIUM TOTAL) (09/03/2021 2:48 AM CDT) Only the most recent of2 resultswithin the time period is included. BUN 7 7 - 26 mg/dL 09/03/2021 3:40 AM [facility] Creatinine 0.68(L) 0.71 - 1.16 mg/dL 09/03/2021 3:40 AM [facility] Sodium 138 136 - 145 mmol/L 09/03/2021 3:40 AM [facility] Potassium 3.6 3.5 - 4.5 mmol/L 09/03/2021 3:40 AM [facility] Chloride 107 98 - 107 mmol/L 09/03/2021 3:40 AM [facility] CO2 20(L) 22 - 29 mmol/L 09/03/2021 3:40 AM [facility] Glucose 161(H) 70 - 115 mg/dL 09/03/2021 3:40 AM [facility] Calcium 8.5 8.4 - 10.2 mg/dL 09/03/2021 3:40 AM [facility] Anion Gap 15 8 - 18 09/03/2021 3:40 AM [facility] BUN/Creatinine Ratio 10 7 - 23 09/03/2021 3:40 AM [facility] Osmolality Calculated 287 270 - 300 mOsm/kg 09/03/2021 3:40 AM [facility] eGFR by CKD-EPI >90 >=90 mL/min/1.7 3 m2 09/03/2021 3:40 AM [facility] Blood BLOOD SPECIMEN / Unknown Lab Venipuncture / Unknown 09/03/2021 2:48 AM CDT 09/03/2021 3:04 AM CDT Jeremy Palomino MD LAB - CHEMISTRY ORD ERABLES [facility] [address] [place] [address], [facility] [phone] * CT BRAIN STROKE (09/02/2021 2:25 PM [...] infarct identified. Dictated by Vini Reyes MD, Push Button Switch Assembler I, Dr. VALENTINE CESPEDES have personally reviewed [...] infarct identified. Dictated by Vini Reyes MD, Push Button Switch Assembler I, Dr. VALENTINE CESPDEES have personally reviewed and interpreted this examination/study. [...] intravenous contrast INDICATION: Subacute infarct in right COMMUNICATIONS EDITOR territory. TECHNIQUE: MR angiogram of the neck was performed according to standard protocol after administration of 8 mL of Gadavist intravenously. MIP reformatted images were obtained. COMPARISON: CT angiogram of the brain from 09/01/2021 was reviewed. Procedure Note Jaqui Culp MD - 09/02/2021 MR angiography of the neck with intravenous contrast INDICATION: Subacute infarct in right COMMUNICATIONS EDITOR territory. 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 Mild noncritical [...] are unremarkable. 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 Mild noncritical [...] ng/mL 09/02/2021 5:13 AM CDT [facility] Blood BLOOD SPECIMEN / Unknown Lab Venipuncture / Unknown 09/02/2021 4:20 AM CDT 09/02/2021 4:42 AM CDT Jeremy Palomino MD LAB - CHEMISTRY ORD ERABLES [facility] [address] [place] [address], [facility] [phone] * (ABNORMAL) URINALYSIS REFLEX TO MICROSCOPIC NO CULTURE (09/02/2021 3:33 AM CDT) Color UA Yellow Straw, Yellow 09/02/2021 3:48 AM [facility] Clarity UA Clear Clear 09/02/2021 3:48 AM [facility] Specific [place] UA 1.047(H) 1.005 - 1.030 09/02/2021 3:48 AM [facility] pH UA 7.0 5.0 - 8.0 pH 09/02/2021 3:48 AM [facility] Protein UA Negative Negative 09/02/2021 3:48 AM [facility] Glucose UA 3+(A) Negative 09/02/2021 3:48 AM [facility] Ketone UA 1+(A) Negative 09/02/2021 3:48 AM [facility] Bilirubin UA Negative Negative 09/02/2021 3:48 AM [facility] Blood UA Negative Negative 09/02/2021 3:48 AM [facility] Nitrite UA Negative Negative 09/02/2021 3:48 AM [facility] Leukocyte Esterase 2+(A) Negative 09/02/2021 3:48 AM [facility] Urobilinogen UA Negative Negative mg/dL 09/02/2021 3:48 AM [facility] RBC UA 6-10(A) None Seen, 0-2, 3-5 /HPF 09/02/2021 3:48 AM [facility] WBC UA 6-10(A) None Seen, 0-5 /HPF 09/02/2021 3:48 AM [facility] Bacteria UA Trace(A) None /HPF 09/02/2021 3:48 AM [facility] Squamous Epithelial Cells UA 0-2 None Seen, 0-2, 3-5 /HPF 09/02/2021 3:48 AM [facility] Mucus UA 1+ /LPF 09/02/2021 3:48 AM [facility] Urine URINE SPECIMEN OBTAINED BY CLEAN CATCH PROCEDURE / Unknown Collection / Unknown 09/02/2021 3:33 AM CDT 09/02/2021 3:38 AM CDT Narrative [facility] - 09/02/2021 3:48 AM CDT Jeremy Palomino MD LAB - URINALYSIS OR DERABLES [facility] [address] [place] [address], [facility] [phone] * URINE DRUG SCREEN IMMUNOASSAY (09/02/2021 3:33 AM CDT) [facility] Amphetamines Screen Urine Negative Negative: < 1000 ng/mL 09/02/2021 3:57 AM CDT [facility] Barbiturates Screen Urine Negative Negative: < 200 ng/mL 09/02/2021 3:57 AM [facility] Benzodiazepine Screen Urine Negative Negative: < 200 ng/mL 09/02/2021 3:57 AM T [facility] Opiates Urine Negative Negative: < 300 ng/mL 09/02/2021 3:57 AM [facility] Cocaine Metabolites Urine Negative Negative: < 300 ng/mL 09/02/2021 3:57 AM CDT [facility] Phencyclidine Screen Urine Negative Negative: < 25 ng/ml 09/02/2021 3:57 AM T [facility] Cannabinoids Screen Urine Negative Negative: <50 ng/mL 09/02/2021 3:57 AM [facility] Methadone Screen Urine Negative Negative: < 300 ng/mL 09/02/2021 3:57 AM [facility] Fentanyl Screen Urine Negative Negative: <1.0 ng/mL 09/02/2021 3:57 AM T [facility] Urine URINE / Unknown Collection / Unknown 09/02/2021 3:33 AM CDT 09/02/2021 3:38 AM CDT Narrative [facility] - 09/02/2021 3:57 AM CDT The Urine Toxicology Screening Panel does not screen for Propoxyphene, Meprobamate, Carisoprodol, Trazodone, mbot-huu-oqwmcid medications and/or volatiles (Acetone, Isopropanol, Methanol or Ethylene Glycol). Ethanol, Salicylate, Acetaminophen, Tricyclic Antidepressants and several therapeutic drugs may be individually assayed in serum or plasma specimen. Toxicology testing by the [facility] is an aid to medical diagnosis and treatment of patients. No documented chain of custody was maintained. Results are intended to be used for clinical purposes only. Jeremy Palomino MD LAB - URINE INTERNATIONAL MARKETING MANAGER RY ORDERABLES [facility] [address] [place] [address], [place] [phone] * PHOSPHORUS BLOOD (09/02/2021 2:08 AM CDT) Only the most recent of2 resultswithin the time period is included. Phosphorus 3.2 2.8 - 5.1 mg/dL 09/02/2021 3:17 AM CDT [facility] Blood BLOOD SPECIMEN / Unknown Lab Venipuncture / Unknown 09/02/2021 2:08 AM CDT 09/02/2021 2:49 AM CDT Jeremy Palomino MD LAB - CHEMISTRY ORD ERABLES Performing Organization Address City/[facility]/ZIP Co de Phone Number [facility] [address] [place] [phone], [place] [phone] * MAGNESIUM BLOOD (09/02/2021 2:08 AM CDT) Only the most recent of2 resultswithin the time period is included. Magnesium 1.8 1.6 - 2.6 mg/dL 09/02/2021 3:17 AM CDT [facility] Blood BLOOD SPECIMEN / Unknown Lab Venipuncture / Unknown 09/02/2021 2:08 AM CDT 09/02/2021 2:49 AM CDT Jeremy Palomino MD LAB - CHEMISTRY ORD ERABLES Performing Organization Address City/[facility]/ZIP Co de Phone Number [address] [address], [place] [phone] * (ABNORMAL) COMPREHENSIVE METABOLIC PANEL (09/01/2021 10:59 PM CDT) BUN 7 7 - 26 mg/dL 09/02/2021 12:21 AM [facility] Creatinine 0.67(L) 0.71 - 1.16 mg/dL 09/02/2021 12:21 AM [facility] Sodium 140 136 - 145 mmol/L 09/02/2021 12:21 AM [facility] Potassium 3.6 3.5 - 4.5 mmol/L 09/02/2021 12:21 AM [facility] Chloride 105 98 - 107 mmol/L 09/02/2021 12:21 AM [facility] CO2 25 22 - 29 mmol/L 09/02/2021 12:21 AM [facility] Glucose 136(H) 70 - 115 mg/dL 09/02/2021 12:21 AM [facility] Calcium 9.3 8.4 - 10.2 mg/dL 09/02/2021 12:21 AM [facility] Protein Total 7.3 6.0 - 8.3 g/dL 09/02/2021 12:21 AM [facility] Albumin 3.6 3.4 - 5.0 g/dL 09/02/2021 12:21 AM [facility] Bilirubin Total 0.6 0.2 - 1.2 mg/dL 09/02/2021 12:21 AM [facility] Alkaline Phosphatase 92 40 - 150 U/L 09/02/2021 12:21 AM [facility] ALT 9 5 - 55 U/L 09/02/2021 12:21 AM [facility] AST 11 5 - 34 U/L 09/02/2021 12:21 AM [facility] Anion Gap 14 8 - 18 09/02/2021 12:21 AM [facility] BUN/Creatinine Ratio 10 7 - 23 09/02/2021 12:21 AM [facility] Osmolality Calculated 290 270 - 300 mOsm/kg 09/02/2021 12:21 AM [facility] Albumin/Globulin Ratio 1.0(L) 1.1 - 2.3 09/02/2021 12:21 AM [facility] eGFR by CKD-EPI >90 >=90 mL/min/1.7 3 m2 09/02/2021 12:21 AM CDT [facility] Blood BLOOD SPECIMEN / Unknown Lab Venipuncture / Unknown 09/01/2021 10:59 PM CDT 09/01/2021 11:55 PM CDT Jeremy Palomino MD LAB - CHEMISTRY ORD ERABLES Performing Organization Address [facility] Co de Phone Number [facility] [address] [place] [address], [facility] [phone] * EKG 12-LEAD (09/01/2021 10:46 PM CDT) Ventricular Rate 87 BPM [facility] MUSE Atrial Rate 87 BPM [facility] P-R Interval 194 ms [facility] QRS Duration ms 90 ms [facility] MUSE Q-T Interval ms 366 ms [facility] M[facility] QTC Calculation (Bezet) 440 ms [facility] MUSE Calculated P [place] 54 degrees SL MUSE Calculated R [place] -35 degrees SL MUSE Calculated T [place] 85 degrees [facility] MUSE Interpretation EKG NORMAL SINUS RHYTHM LEFT AXIS DEVIATION ANTEROLATERAL INFARCT , AGE UNDETERMINED ABNORMAL ECG WHEN COMPARED WITH ECG OF 30-AUG-2006 06:00, QRS AXIS SHIFTED LEFT ANTERIOR INFARCT IS NOW PRESENT ANTEROLATERAL INFARCT IS NOW PRESENT Confirmed by Rian Mcfarland ([id number]) on 09/06/2021 11:27:36 PM [facility] 09/01/2021 10:4 6 PM CDT 09/06/2021 11:27 PM CDT Jeremy Palomino MD ECG ORDERABLES Performing Organization Address [facility] Co de Phone Number [facility] * CT ANGIO BRAIN (09/01/2021 9:18 PM CDT) Anatomical Region Laterality Modality Head Computed Tomogra phy 09/01/2021 11:3 0 PM CDT Impressions 09/02/2021 8:20 AM CDT IMPRESSION: 1.No aneurysms, spot sign, or signs of a high flow vascular malformation identified to account for the patient's right COMMUNICATIONS EDITOR infarct with hemorrhagic transformation. 2.The dural venous sinuses are not well opacified with contrast and cannot be evaluated. These findings were discussed in detail with the patient's care provider, Dr. Victoria by Dr. Sebastian via telephone at 9:35 PM on 09/01/2021 with readback comprehension and verification. Dictated by Coco Sebastian MD (president trust company). I, Dr. VALENTINE CESPEDES have personally reviewed [...] identified to account for the patient's right COMMUNICATIONS EDITOR infarct withhemorrhagic transformation. 2.The dural venous sinuses are not well opacified with contrast andcannot be evaluated. These findings were discussed in detail with the patient's careprovider, Dr. Victoria by Dr. Sebastian via telephone at 9:35 PM on 09/01/2021 with readback comprehension and verification. Dictated by Coco Sebastian MD (president trust company). I, Dr. VALENTINE CESPEDES have personally reviewed and interpreted this examination/study. This report was electronically signed by VALENTINE CESPEDES on09/02/2021 8:20 AM . Jeremy Palomino MD CT ORDERABLES
--- OUTSIDE RECORDS SUMMARY | 2024-08-03 09:11 | XMS_ITS | Clinical Summary ---
Author Organization [facility] [address] [facility] Address [address] [place] [address] Care Team Providers Care Catalog Library Assistant Name Role Phone Unknown, Notinfile Primary Care Provider Unavail able Salbador Granados MD Unavailable [phone] Rubin Clayton MD Unavailable Miscellaneous, Not In File Unavailable Unava ilable Humphrey Manriquez MD Unavailable [phone] Allergies Active Allergy Reactions Criticality Noted Date [...] (05/01/2021): Added automatically from request for surgery [id number] Cerebrovascular accident (CVA) Surgical History Surgery Date Site/Laterality Comments CARDIAC STENT PLACEMENT CORONARY ARTERY BYPASS GRAFT 05/20/2021 - 06/19/2021 Four-vessel [facility] Medical History Medical History Date Comments Hypertension [...] Counseling Given: Yes Comments:Stop smoking 04/2021 after OR Alcohol Use Standard Drinks/Week Comments No 0 [...] on file Legal Sex Male 11:30 PM CHEMISTRY LABORATORY TECHNICIAN Gender Identity Not on file Sexual Orientation Not on file Obstetrics History Last Filed Vital Signs Vital Sign Reading Time Taken Comments Blood Pressure 129/84 09/15/2021 12:18 PM CDT Pulse 80 09/15/2021 12:18 PM CDT Temperature 36.6 C (97.8 F) 08/21/2021 6:00 AM CHEMISTRY LABORATORY TECHNICIAN Respiratory Rate 14 09/15/2021 12:18 PM CDT [...] Completed 05/24/2021 Medical Devices Implanted Type Area Shuttle Buggy Operator Device Identifier Shelf Expiration Date Model / Serial / Lot NuPotential Cardiovascular Eniram [id number] Sensation Plus Statlock 8fr 17.4mm .027in 6in 258mm Fiber Optic - [id number] Implanted:Qty: 1 on 05/01/2021 by [facility]/2023 76-01U / / [id number] Procedures Procedure Name Priority Date/Time Associated Diagnosis Comments HEPATITIS PANEL, ACUTE Routine 05/24/2021 3:48 AM CHEMISTRY LABORATORY TECHNICIAN from Last 3 Months or Most Recently Relevant to Health Maintenance Results * Hepatitis panel, acute (05/24/2021 3:48 AM CHEMISTRY LABORATORY TECHNICIAN) Hep A IgM Nonreactive Nonreactive [facility] Comment: Interpretive Data: If Hep A IgM Ab is reported as Equivocal, a new sample should be drawn in two weeks for testing. Current interpretive data was last revised on 19. Hep B core IgM Nonreactive Nonreactive [facility] Comment: Interpretive Data If HepB Core IgM Ab is reported as Equivocal, a new sample should be drawn in two weeks for testing. Current interpretive data was last revised on 19. Hep C Ab Nonreactive Nonreactive [facility] Comment: Interpretive Data Nonreactive: Antibodies to [...] last revised on 2019. HepBsAg Nonreactive Nonreactive [facility] Blood 05/24/2021 3:48 AM CHEMISTRY LABORATORY TECHNICIAN 05/24/2021 4:16 AM CHEMISTRY LABORATORY TECHNICIAN Stephen Melgar MD LAB MICROBIOLOGY - GENERAL FAVIO [facility]AUR Final Result Performing Organization Address City/State/[facility] Co de Phone Number [facility] [address] Department [place] [address] from Last 3 Months or Most Recently Relevant to Health Maintenance Insurance [facility] PLAN PLAN PLAN HEIDY ALVAREZ [facility] Advance Directives For more information, please contact: [phone] * Full Code (Latest Code Status on File) Date Activated Date Inactivated Comments 08/19/2021 4:45 PM 08/21/2021 7:26 PM * Full Code Date Activated Date Inactivated Comments 07/29/2021 4:33 AM 07/30/2021 9:59 PM * Full Code Date Activated Date Inactivated Comments 05/09/2021 11:04 AM 06/03/2021 7:39 PM * Full Code Date Activated Date Inactivated Comments 05/01/2021 10:48 PM 05/08/2021 10:11 AM Care Teams Catalog Library Assistant Relationship Specialty Start Date End Date Unknown, Notinfile PCP - General 05/01/21 [place] [address] [place] [address] Surgeon Cardiothoracic Surgery 05/01/21 [place] [address] [address] [place] [address] Referring Physician Cardiovascular Disease 06/03/21 Miscellaneous, Not In File 07/30/21 Humphrey Manriquez MD [address] [facility] [address] [place] [address] Consulting Physician Neurology 07/30/21
--- OUTSIDE RECORDS SUMMARY | 2024-08-03 09:11 | XMS_ITS | Referral Summary ---
Author Organization [facility] [address] [facility] Address [address] [place] [address] Care Team Providers Care Coal Hauler Operator Name Role Phone Unknown, Notinfile Primary Care Provider Unavail able Salbador Granados MD Unavailable Rubin Clayton MD Unavailable Miscellaneous, Not In File Unavailable Unava ilable Humphrey Manriquez MD Unavailable [phone] Allergies Active Allergy Reactions Criticality Noted Date [...] (05/01/2021): Added automatically from request for surgery [id number] Cerebrovascular accident (CVA) Social History Tobacco Use Types Packs/Day Years Used Date Smoking Tobacco: Former Cigarettes 1 40 Smokeless Tobacco: Never Tobacco Cessation:Ready to Q uit: Yes; Counseling Given: Yes Comments:Stop smoking 04/2021 after [place] Alcohol Use Standard Drinks/Week Comments No 0 [...] on file Legal Sex 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 Gender Identity Not on file Sexual Orientation Not on file Last Filed Vital Signs Vital Sign Reading Time Taken Comments Blood Pressure 129/84 09/15/2021 12:18 PM CDT Pulse 80 09/15/2021 12:18 PM CDT Temperature 36.6 C (97.8 F) 08/21/2021 6:00 AM LEAD NETWORK ENGINEER Respiratory Rate 14 09/15/2021 12:18 PM CDT Oxygen Saturation 97% 09/15/2021 12:18 PM CDT Inhaled Oxygen Concentration - - Weight 84.8 kg (187 lb) 09/15/2021 12:18 PM CDT Height 167.6 cm (5' 6 ) 09/15/2021 12:18 PM CDT Body Mass Index 30.18 09/15/2021 12:18 PM CDT Plan of Treatment Not on file Medical Devices Implanted Type Area Car Rental Deliverer Device Identifier Shelf Expiration Date Model / Serial / Lot [employer] Cardiovascular EzLike [id number] Sensation Plus Statlock 8fr 17.4mm .027in 6in 258mm Fiber Optic - [id number] Implanted:Qty: 1 on 05/01/2021 by Rubin Clayton MD at [facility] 08/14/2023 76-01U / / [id number] Procedures Procedure Name Priority Date/Time Associated Diagnosis Comments HEPATITIS PANEL, ACUTE Routine 05/24/2021 3:48 AM LEAD NETWORK ENGINEER from Last 3 Months or Most Recently Relevant to Health Maintenance Results * Hepatitis panel, acute (05/24/2021 3:48 AM LEAD NETWORK ENGINEER) Hep A IgM Nonreactive Nonreactive [facility] Comment: Interpretive Data: If Hep A IgM Ab is reported as Equivocal, a new sample should be drawn in two weeks for testing. Current interpretive data was last revised on 19. Hep B core IgM Nonreactive Nonreactive [facility] Comment: Interpretive Data If HepB Core IgM Ab is reported as Equivocal, a new sample should be drawn in two weeks for testing. Current interpretive data was last revised on 19. Hep C Ab Nonreactive Nonreactive [facility] Comment: Interpretive Data Nonreactive: Antibodies to [...] Nonreactive [facility] Blood 05/24/2021 3:48 AM LEAD NETWORK ENGINEER 05/24/2021 4:16 AM LEAD NETWORK ENGINEER Stephen Melgar MD LAB MICROBIOLOGY - GENERAL FAVIO KAUR Final Result [facility] [address] Department [place] [address] from Last 3 Months or Most Recently Relevant to Health Maintenance Insurance PLAN HEDIY ALVAREZ [id number] [facility] PLAN PLAN PLAN Advance Directives For more information, please contact: [phone] * Full Code (Latest Code Status on File) Date Activated Date Inactivated Comments 08/19/2021 4:45 PM 08/21/2021 7:26 PM * Full Code Date Activated Date Inactivated Comments 07/29/2021 4:33 AM 07/30/2021 9:59 PM * Full Code Date Activated Date Inactivated Comments 05/09/2021 11:04 AM 06/03/2021 7:39 PM * Full Code Date Activated Date Inactivated Comments 05/01/2021 10:48 PM 05/08/2021 10:11 AM Care Teams Coal Hauler Operator Relationship Specialty Start Date End Date Unknown, Notinfile PCP - General 05/01/21 [place] [address] [facility] [address] [address] Surgeon Cardiothoracic Surgery 05/01/21 [place] [address] [facility] [address] [facility] [place] [address] Referring Physician Cardiovascular Disease 06/03/21 Miscellaneous, Not In File 07/30/21 Humphrey Manriquez MD [address] [address] Consulting Physician Neurology 07/30/21
[2024-08-03 10:44] LABS: NT Pro B Type Natriuretic Pept 417 pg/mL (19.9-100)
[2024-08-03 11:33] LABS: Influenza A QL RT-PCR Negative (Negative); Influenza B QL RT-PCR Negative (Negative); RSV RNA, RT-PCR Negative (Negative); SARS-CoV-2 RNA PCR Negative (Negative)
--- NOTE | 2024-08-03 11:35 | ED.GENADULT ---
HPI - General Adult General Chief complaint: Shortness of Breath/Dyspnea Stated complaint: AMS, unknown LKW, hx CVA Time Seen by Provider: 08/03/24 08:51 Source: patient and family Mode of arrival: ambulatory Limitations: no limitations History of Present Illness HPI narrative: 64-year-old with a history of hypertension, CVA, diabetes, hyperlipidemia here with the complaints of shortness of breath since this morning. This sinus the primary historian and states that he was having some difficulty in breathing this morning however by the time he got to the ER he has no complaints. He denies having any chest pain or cough or fever or chills son who is at the bedside states that they ran out of Olanzapine Onset (ago): hour(s) (2) Radiation: non-radiation Severity: mild Pain Consistency: now resolved Relieving factors: none Exacerbating factors: none Associated symptoms: denies other symptoms Related Data Home Medications ?Medication ?Instructions ?Recorded ?Confirmed ?Last Taken ?Type aspirin 81 mg tablet,delayed 81 mg PO DAILY 09/05/21 06/05/24 09/16/23 History release (Adult Low Dose Aspirin) carvedilol 3.125 mg tablet (Coreg) 3.125 mg PO Q12H 09/05/21 06/05/24 09/16/23 History insulin glargine 100 unit/mL (3 45 unit subcut HS 03/11/22 06/05/24 09/16/23 History mL) subcutaneous pen (Lantus Solostar U-100 Insulin) olanzapine 20 mg tablet mg PO 02/24/24 06/05/24 Unknown History Allergies Allergy/AdvReac Type Severity Reaction Status Date / Time metoclopramide AdvReac Mild Vomiting Verified 06/05/24 13:21 Review of Systems Review of Systems: All systems reviewed & are unremarkable except as noted in HPI and below Constitutional: Constitutional: Reports no additional constitutional complaints Eyes: Eyes: Reports no additional eye complaints ENT: Reports system reviewed and no additional complaints, except as documented Cardiovascular: Cardiovascular: Reports no additional cardiovascular complaints Respiratory: Respiratory: Reports as per HPI Gastrointestinal: Gastrointestinal: Reports as per HPI Musculoskeletal: Musculoskeletal: Reports no additional musculoskeletal complaints PMFSH Past Medical History Medical History Swelling of lower extremity Diabetic ulcer of right heel Osteomyelitis of toe of right foot Personal history of noncompliance with medical treatment and regimen Encounter for postoperative care ILANA on CPAP Peripheral arterial occlusive disease Diabetic foot ulcer Chronic anemia Seizure disorder Gastroesophageal reflux disease Type 2 diabetes mellitus Cerebrovascular accident (06/2021) It sounds as though he had an ischemic stroke (symptoms include vertigo and visual changes) with hemorrhagic conversion. Chronic obstructive pulmonary disease Kidney stones Hypertension Coronary artery disease Status post bifurcation stents to the LAD and diagonal in 2006, stent to the LAD for in-stent restenoses in 2009, and CABG in April 2021 at [facility]. Surgical History Surgical History History of amputation of left great toe History of amputation of right great toe 03/11/23 History of myringoplasty History of inguinal hernia repair times 2 History of coronary artery bypass graft (04/2021) Done at [facility]. History of percutaneous coronary intervention Bifurcation stents to LAD and diagonal in 2006. Stent to the LAD in 2009. (three stents) Family History Family History Mother Family history of diabetes mellitus in first degree relative Other Diabetes mellitus Hypertension Social History Social History Social History: The patient lives with his and 2 sons in [place]. His sons help him out. 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 He smoked about a pack a day for nearly 45 years and he quit at the time of his bypass in April 2021. He was a heavier drinker in his younger years. No illicit substance use. Surrogate medical decision maker: Shahrzad Qiu, . Code status: Full code. Smoking packs per day: 1.5 Smoking cigarettes per day: 30.0 Years smoked: 30 Smoking pack-years: 45.00 Smoking status: Former smoker Second hand tobacco smoke exposure: Yes Alcohol intake: never Substance use: never Substance use type: does not use Do You Feel Safe in your Home?: Yes Lack of Transportation: No Lack of Food: Never True Current Housing: I Have Housing Concerned About Future Housing: No Difficulty Paying Gas/Electric Bills: No Difficulty Paying for Meds: No Currently Unemployed: No Education: High School Diploma/GED Difficulty w/ Childcare or Family Care: No Spiritual care concerns: No Exam Narrative: GENERAL: Well-appearing, well-nourished, and in no acute distress confused ( baseline) HEAD: Normocephalic, atraumatic. EYES: PERRLA and EOMI. NECK: Supple. CHEST: Clear to auscultation. No respiratory distress. HEART: Regular rate and rhythm. No murmur heard. Normal peripheral pulses. ABDOMEN: Soft, nontender, nondistended, normal active bowel sounds. EXTREMITIES: Normal range of motion. No edema. SKIN: Warm, dry, no rash. NEURO: No focal deficits. Alert and oriented x3. PSYCH: Normal mood and affect. Course Course Emergency Course: Patient remained asymptomatic here is SpO2 on room air of 100% I did inform the patient and his son about his lab work and chest x-ray findings recommended him to continue his home medications, follow-up with his primary doctor Vital Signs Vital signs: Vital Signs Pulse Rate 80 08/03/24 08:30 Respiratory Rate 16 08/03/24 08:30 Blood Pressure 127/75 08/03/24 08:30 Pulse Oximetry 100 08/03/24 08:30 Temperature 36.6 C 08/03/24 08:35 Pulse Rate 80 08/03/24 10:16 Respiratory Rate 17 08/03/24 10:37 Blood Pressure 144/76 H 08/03/24 10:16 Pulse Oximetry 100 08/03/24 10:16 Oxygen Delivery Room Air 08/03/24 08:39 Medical Decision Making Differential Diagnosis Differential Diagnosis: Pneumonia, bronchitis, CHF, COPD exacerbate Vital Signs Vital Signs: Vital Signs Pulse Rate 80 08/03/24 08:30 Respiratory Rate 16 08/03/24 08:30 Blood Pressure 127/75 08/03/24 08:30 Pulse Oximetry 100 08/03/24 08:30 Temperature 36.6 C 08/03/24 08:35 Pulse Rate 80 08/03/24 10:16 Respiratory Rate 17 08/03/24 10:37 Blood Pressure 144/76 H 08/03/24 10:16 Pulse Oximetry 100 08/03/24 10:16 Oxygen Delivery Room Air 08/03/24 08:39 Lab Data 08/03/24 08:41 08/03/24 08:41 Labs: Lab Results 08/03/24 08/03/24 Range/Units 08:41 10:42 WBC 11.0 H (4.5-10.0) K/mm3 RBC 3.50 L (4.6-6.20) M/mm3 Hgb 10.9 L (14.0-18.0) g/dL Hct 33.9 L (42.0-52.0) % MCV 96.9 (80-100) fl MCH 31.1 (26-34) pg MCHC 32.2 (32-36) g/dl RDW 14.3 (11.5-14.5) % Plt Count 250 (150-375) k/mm3 MPV 11.2 H (7.4-10.4) fl Immature Gran % (Auto) 0.3 (0-0.5) % Neut % (Auto) 71.2 (45.5-73.1) % Lymph % (Auto) 14.3 L (18.3-44.2) % Mason % (Auto) 11.3 H (2.6-8.5) % Eos % (Auto) 2.5 (0-4.4) % Baso % (Auto) 0.4 (0.2-1.2) % Lymph # (Auto) 1.57 (0.9-3.2) K/mm3 Mason # (Auto) 1.2 H (0.1-0.6) K/mm3 Eos # (Auto) 0.3 (0-0.3) K/mm3 Baso # (Auto) 0.0 (0.0-0.1) K/mm3 Abs Immat Gran (auto) 0.03 (0.00-0.031) K/mm3 Absolute Neuts (auto) 7.9 H (1.3-6.7) K/mm3 Absolute Nucleated RBC 0.000 (0.0-0.012) K/mm3 Nucleated RBC % 0.0 (0.0-0.2) % Sodium 140 (137-145) mmol/L Potassium 4.1 (3.4-5.0) mmol/L Chloride 106 (98-107) mmol/L Carbon Dioxide 19 L (22-30) mmol/L Anion Gap 15 H (4-12) mmol/L BUN 23 H (9-20) mg/dL Creatinine 1.24 (0.7-1.3) mg/dL Estim Creat Clear Calc Not Reportable Estimated GFR 59 (59 - ) Glucose 191 H (65-110) mg/dL Calcium 9.0 (8.4-10.2) mg/dL Total Bilirubin 0.5 (0.2-1.3) mg/dL AST 17 (17-59) U/L ALT 15 (6-50) U/L Alkaline Phosphatase 64 (38-126) U/L NT-Pro-B Natriuret Pep 417 H (19.9-100) pg/mL Total Protein 8.0 (6.3-8.2) g/dL Albumin 4.2 (3.5-5.1) g/dL Influenza A (RT-PCR) Negative (Negative) Influenza B (RT-PCR) Negative (Negative) RSV (RT-PCR) Negative (Negative) SARS-CoV-2 RNA (RT-PCR) Negative (Negative) Imaging Data Radiologist's impression: ITS Impressions Chest X-Ray 08/03/24 09:23 IMPRESSION: 1. Mild opacities at the bilateral lower lung zones which could represent atelectasis, mild pulmonary edema, pneumonia or some combination thereof. ECG Data EKG #1: ECG completion date: 08/03/24 ECG completion time: 09:18 EKG Interpretation: normal rate (81), sinus rhythm, no ectopy, non-specific ST changes and normal QT Discharge Plan Discharge Clinical Impression: Chronic obstructive pulmonary disease Qualifiers: COPD type: unspecified COPD Qualified Code(s): J44.9 - Chronic obstructive pulmonary disease, unspecified Patient Disposition: Home, Self-Care Condition: Stable Instructions: Shortness of Breath (ED) Patient Language: Citizen Of [place] Prescriptions: New olanzapine 20 mg tablet 20 mg PO DAILY Qty: 10 0RF No Action olanzapine 20 mg tablet PO aspirin [Adult Low Dose Aspirin] 81 mg tablet,delayed release (DR/EC) 81 mg PO DAILY carvedilol [Coreg] 3.125 mg tablet 3.125 mg PO Q12H insulin glargine [Lantus Solostar U-100 Insulin] 100 unit/mL (3 mL) insulin pen 45 unit SUBCUT HS hydrocodone-acetaminophen 5-325 mg tablet 1 tablet PO Q6H PRN (Reason: pain) Qty: 14 0RF atorvastatin [Lipitor] 40 mg tablet 40 mg PO DAILY Qty: 90 1RF fenofibrate 160 mg tablet 160 mg PO DAILY Qty: 90 1RF Jardiance 10 mg tablet 10 mg PO DAILY Qty: 90 1RF famotidine 40 mg tablet 40 mg PO DAILY Qty: 90 1RF carbamazepine 200 mg tablet 200 mg PO Q8HR Qty: 90 1RF lisinopril [Zestril] 5 mg tablet 5 mg PO DAILY Qty: 90 0RF Follow-up/Referrals: Evangelina Lazo DO [Primary Care Provider] - Time of Disposition: 11:54
== END 2024-08-03 12:24 | disposition home or self-care (01) ==
PROVIDERS: Emergency Provider Family Medicine; PCP Family Medicine
DX: J44.9 Chronic obstructive pulmonary disease, unspecified (principal); Z20.822 Contact with and (suspected) exposure to COVID-19; I10 Essential (primary) hypertension; I25.10 Atherosclerotic heart disease of native coronary artery without angina pectoris; E78.5 Hyperlipidemia, unspecified; E11.51 Type 2 diabetes mellitus with diabetic peripheral angiopathy without gangrene; I73.9 Peripheral vascular disease, unspecified; G40.909 Epilepsy, unspecified, not intractable, without status epilepticus; G47.33 Obstructive sleep apnea (adult) (pediatric); D64.9 Anemia, unspecified; K21.9 Gastro-esophageal reflux disease without esophagitis; Z95.5 Presence of coronary angioplasty implant and graft; Z95.1 Presence of aortocoronary bypass graft; Z86.73 Personal history of transient ischemic attack (TIA), and cerebral infarction without residual deficits; Z87.891 Personal history of nicotine dependence; Z89.412 Acquired absence of left great toe; Z89.411 Acquired absence of right great toe; I44.0 Atrioventricular block, first degree; I49.3 Ventricular premature depolarization; I44.4 Left anterior fascicular block; R94.31 Abnormal electrocardiogram [ECG] [EKG]; Z79.84 Long term (current) use of oral hypoglycemic drugs; Z79.4 Long term (current) use of insulin; Z79.82 Long term (current) use of aspirin; Z79.899 Other long term (current) drug therapy
CPT/HCPCS: 36415; 71046; 80053; 83880; 85025; 87637; 93005; 99284

== ENCOUNTER 2024-09-27 18:36 | Inpatient (IN) | payer MEDICARE, MEDICAID, SELFPAY ==
--- NOTE | ~2024-09-27 | CT_ITS ---
CT brain wo con Ordering provider: Obed Hanson MD History: 64 years Male with . change in mental status . Comparison: September 28, 2024 Technique: CT of the head without contrast. Radiation reduction technique utilized.The dose-length pr oduct was 1362 mGy-cm. FINDINGS: Motion artifacts degraded the images. BRAIN PARENCHYMA AND CSF SPACES: Hypodensity in the medial aspect of the left temporal lobe is noted which may indicate acute infarct. MRI is advised. Mild leukoaraiosis and diffuse cortical atrophy. Mi ld atheromatous disease. Old infarct with encephalomalacia in the right occipital lobe and the right cerebellar hemisphere. No midline shift, mass effect or hemorrhage. The brain parenchyma and CSF [place] are otherwise normal. VISUALIZED PARANASAL SINUSES: Well aerated. MASTOIDS: Well aerated. BONES: The bones appear intact. SOFT TISSUES: Visualized nasopharynx is normal. Superficial soft tissues are normal. IMPRESSION: Hypodensity in the medial aspect of the left temporal lobe and occipital lobe which is highly suggest king of acute infarct. MRI evaluation advised. 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 Old infarct in the right cerebella r hemisphere. Reviewed, dictated and finalized at location A. IMPRESSION: Hypodensity in the medial aspect of the left temporal lobe and occipital lobe w hich is highly suggestive of acute infarct. MRI evaluation advised. 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 Old infarct in the right cerebellar hemisphere.
--- NOTE | ~2024-09-27 | XR_ITS ---
XR chest 1V portable Ordering provider: Carlos Wallace MD History: 64 years Male with . weakness . Comparison: August 03, 2024 FINDINGS: MEDIASTINUM: The cardiac silhouette is not enlarged. Prominent shahriar. Postoperative changes of the mediastinum. LUNGS: No effusions or pneumothorax. Prominent bronchovascular markings in the lower lobes more on th e left side which may indicate atelectasis versus pneumonia. Underlying fibrotic changes are noted OTHER: No free air under the diaphragm. IMPRESSION: Left lower lobe atelectasis versus pneumonia. Reviewed, dictated and finalized at location A.
--- NOTE | ~2024-09-27 | CT_ITS ---
CT brain wo con Ordering provider: Alondra Onorfe History: 64 years Male with . fall, ams . Comparison: None. Technique: CT of the head without contrast. Radiation reduction technique utilized.The dose-length pr oduct was 1362 mGy-cm. FINDINGS: BRAIN PARENCHYMA AND CSF SPACES: Old infarct with encephalomalacia in the right apical area. Brain at rophy with deep white matter ischemic changes. Lacunar infarcts in the right thalamus and left basal ganglia. Old infarct in the right cerebellar hemisphere. Otherwise, No midline shift, mass effect or hemorrhage. The brain parenchyma and CSF spaces are normal. VISUALIZED PARANASAL SINUSES: Well aerated. MASTOIDS: Well aerated. BONES: The bones appear intact. SOFT TISSUES: Visualized nasopharynx is normal. Superficial soft tissues are normal. IMPRESSION: No acute intracranial findings. Reviewed, dictated and finalized at location A.
--- NOTE | ~2024-09-27 | CT_ITS ---
Noncontrast CT scan of the cervical spine Technique: Multiple contiguous axial [address] images of the cervical spine were obtained and rec onstructed in 2D sagittal and coronal planes on the acquisition scanner. Dose reduction technique was used on this scan by utilizing automated exposure control, adjustment of the mA and/or kV according to patient size. The dose-length product (DLP) was 545.45 mGy-cm. Clinical History: Pain COMPARISON: 06/14/2024 Findings: No fractures or dislocations. There is advanced degenerative changes reticulation of the o dontoid process with the anterior arch of C1. There is partial fusion across the C2-C3 disc space. Re maining disc spaces are relatively well-preserved. There is left neural foraminal narrowing at C3-C4. . No prevertebral soft tissue swelling. Impression: No fracture or subluxation of the cervical spine. Reviewed, dictated and finalized at [facility]. Impression: No fracture or subluxation of the cervical spine.
--- NOTE | ~2024-09-27 | US_ITS ---
EXAM: US carotid duplex BI - 09/29/2024 11:45 CDT History: 64 years old Male with acute stroke Technique: Real-time sonographic images of the bilateral carotid and vertebral arterial systems were obtained. Color Doppler sonography and spectral waveform analysis were performed. Comparison: None Findings: Limited evaluation due to patient's inability to cooperate.. Right Velocities (cm/sec): Right Common carotid Peak systolic velocity: 72 Right internal carotid Peak systolic velocity: 42 End diastolic velocity: 11 Right ICA/CCA ratio: 0.6 Right External carotid Peak systolic velocity: 125 Right Vertebral: Not visualized Left Velocities (cm/sec): Left Common carotid Peak systolic velocity: 69 Left internal carotid Peak systolic velocity: 92 End diastolic velocity: 23 Left ICA/CCA ratio: 1.3 Left External carotid Peak systolic velocity: Not visualized Left Vertebral: Not visualized Impression: Limited evaluation. Within the limitations of the examination, no sonographic evidence of flow-limiting stenosis in carotid arteries. Reviewed, dictated and finalized at location A. Impression: Limited evaluation. Within the limitations of the examination, no s onographic evidence of flow-limiting stenosis in carotid arteries.
--- NOTE | ~2024-09-27 | CT_ITS ---
CT ANGIOGRAM NECK AND HEAD History: Altered mental status. Technique: Axial noncontrast imaging of the brain was performed. Serial spiral axial images through t he head and neck were then obtained during arterial phase IV injection of 100 cc of Omnipaque 350. 3- D postprocessing and MIP images were then reconstructed on the remote workstation. Dose reduction arcelia hnique was used on this scan by utilizing automated exposure control and iterative reconstruction arcelia hnique. The dose-length product (DLP) was 2581.12 mGy-cm. COMPARISON: 09/27/2024 CTA neck findings: Exam somewhat degraded by motion artifact. Bilateral vertebral arteries appear pa tent. Bilateral common carotid, internal carotid, external carotid arteries are patent. No definite s ignificant stenosis. No large vessel occlusion. The proximal right internal carotid artery demonstrat es 0% stenosis relative to the normal distal artery lumen diameter. The proximal left internal caroti d artery demonstrates 0% stenosis relative to the normal distal artery lumen diameter. Lung apices demonstrate emphysematous change. CTA head findings: Distal vertebral arteries, basilar artery, and posterior cerebral arteries are pat ent. Distal internal carotid arteries, middle cerebral arteries, and anterior cerebral arteries are p atent. There is atherosclerotic calcification the cavernous portions of the distal internal carotid a rteries, with areas of moderate to high-grade stenosis. No other stenosis evident. No large vessel oc clusion. Axial noncontrast imaging of the brain demonstrates stable chronic right occipital lobe infarct. Smal l chronic right cerebellar infarct also noted. No acute infarct or acute intracranial hemorrhage evid ent, though there is mild motion artifact. Ventricles and subarachnoid spaces are stable. Paranasal s inuses and mastoid air cells are clear. Calvarium intact. Impression: Exam somewhat suboptimal due to motion artifact. No large vessel occlusion. There are probable modera te to high-grade stenoses in the cavernous portions of the distal internal carotid arteries related t o atherosclerotic calcification. 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 Reviewed, dictated and finalized at location M. Impression: Exam somewhat suboptimal due to motion artifact. No large vessel occlusion. The re are probable moderate to high-grade stenoses in the cavernous portions of th e distal internal carotid arteries related to atherosclerotic calcification. 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
--- NOTE | ~2024-09-27 | XR_ITS ---
MODIFIED ESOPHAGRAM HISTORY: Recommended by speech therapy TECHNIQUE: Modified barium esophagram was performed on 10/03/2024. I administered fluoroscopy and perf ormed the exam with speech pathologist. Patient was seated for lateral fluoroscopic imaging for gerhard stion of thin liquids, pudding, solids and quantified amounts, followed by thin liquids in uncontroll ed amounts. This was recorded on tape. A single fluoroscopic spot image was also recorded. The DAP fo r this procedure was 1.271 Gycm2. The amount of fluoroscopy time used during this procedure was 1.6 m inutes. FINDINGS: Oral stage: Adequate function. Pharyngeal stage: Adequate function. There is mildly reduced tongue base retraction. Trace residue at the piriform sinus which clears with subsequent dry swallow. No laryngeal penetration or aspiration. Cervical/esophageal stage: Adequate function. IMPRESSION: Patient tolerated regular consistency oral feedings in the upright position. Please archie elate with speech pathologist findings and specific feeding recommendations. Reviewed, dictated and finalized at location A. IMPRESSION: Patient tolerated regular consistency oral feedings in the upright position. Please correlate with speech pathologist findings and specific feedi ng recommendations.
--- OUTSIDE RECORDS SUMMARY | 2024-09-27 18:38 | XMS_ITS | Data Portability ---
Author Organization Dora AGUIRRE Address [address] [facility] [place] [address] Assessment No assessment recorded. Plan of Treatment Reminders Order Date Submit Date Provider Last Modified By Organization Details Last Modified Time Details Appointments None recorded. Lab CBC w/ auto diff 2015 016 [facility], [address] [facility] [address], [address], [place], [address], 6 11:02:23 CMP, serum or plasma 2015 016 [facility], [address] [place] [facility] [address], [address], [place], [address], 6 11:02:23 hepatitis C Ab, signal-to- cutoff, serum or plasma 2015 016 oajao [facility], [address] [facility] [address], [address], [place], [address], 6 19:01:42 lipid panel, serum 2015 016 [facility], [address] [facility] [address], [address], [place], [address], 6 11:02:23 urinalysis , complete 2015 016 [facility], [address] [facility] [address], [address], [place], [address], 6 11:02:24 HIV (1+O+2) Ab, serum 2015 016 [facility], [address] [facility], [address], [place], [address], 6 11:02:24 HbA1c (hemoglobi n A1c), blood 2015 016 [facility], [address] [place] [facility] [address], [address], [place], [address], 6 11:02:24 albumin, urine 2015 016 [facility], [address] [facility], [address], [place], [address], 6 11:02:24 hemoglobin , qualitativ e, stool by immunologi c method 2015 016 oajao [facility], [address] [place] [facility] [address], [address], [place], [address], 6 19:01:43 Referral urologist referral - Please call patient to schedule appt. Thank you 2019 020 yang Morales, [address] [facility], [address], [place], [address], 0 08:22:46 diabetic ophthalmol ogy referral 2015 016 [email or web address] [place], [address] [facility], [address], [place], [address], 7 08:28:50 colonoscop y referral - Please call patient to schedule and send consult 2015 016 [email or web address] Not available 6 11:55:26 Procedures None recorded. Surgeries None recorded. Imaging x-ray, chest, 2 view 2015 016 [email or web address] Not available 6 10:56:56 Medication Orders Vane Doran U-100 Insulin 100 unit/mL (3 mL) subcutaneo us [email or web address] [place] [address] [facility], [address] [place], [address], 0 17:45:49 glimepirid e 2 mg tablet 2019 020 [facility], [address] [place], [address], 0 12:02:38 glimepirid e 4 mg tablet 2015 016 [id number], [address] [facility], [place], [place], [id number], 0 11:22:21 Patient TargetsNo targets recorded. Patient Instructions Encounter Date Encounter Id Patient Instructions Last Modified By Organization Details Last Modified Time 11/05/2015 [id number] I have been very so and direct [...] Anastacio Archer, Internal Medicine, Encounter Date: 12/24/2019 Results Created Date Observation Date Name Description Value Unit Range Abnormal Flag Note LastModifiedBy Organization Detail LastModifiedTime 09/04/1909/03/2021 Hemog lobin A1c/H emogl obin. total in Blood hemoglobin A1C/hemoglob in.total in blood 11.5 % high: 5.6% high Hemog lobin A1c 11.5 (H) <=5.6 % 09/03 10:28 AM [facility] Not Available Not Available 09/07/2024 10:54:21 09/04/19 22 09/03/2021 Hemog lobin A1c/H emogl obin. total in Blood glucose mean value [mass/volume ] in blood estimated from glycated hemoglobin 283 mg/dL Estim michelle Murphy ge Gluco se 283 mg/dL 09/03 10:28 AM CDT [facility] Not Available Not Available 09/07/2024 10:54:21 09/04/19 22 09/03/2021 Hemog lobin A1c/H emogl obin. total in Blood interpretati on and review of laboratory results Abnorm al Not Available Not Available 10:54:21 09/04/19 22 09/03/2021 Basic metab olic 2000 panel - Serum or Plasm a urea nitrogen [mass/volume ] in serum or plasma 7 mg/dL low: 7mg/dL high: 26mg/d L BUN 7 7 - 26 mg/dL 09/03 3:40 AM [facility] Not Available Not Available 09/07/2024 10:54:21 09/04/19 22 09/03/2021 Basic metab olic 1999 panel - Serum or Plasm a creatinine [mass/volume ] in serum or plasma 0.68 mg/dL low: 0.71mg /dLhig h: 1.16mg /dL low Creat inine 0.68 (L) 0.71 - 1.16 mg/dL 09/03 3:40 AM T [facility] Not Available Not Available 09/07/2024 10:54:21 09/04/19 22 09/03/2021 Basic metab olic 2000 panel - Serum or Plasm a sodium [moles/volum e] in serum or plasma 138 mmol/ L low: 136mmo l/Lhig h: 145mmo l/L Sodiu m 138 136 - 145 mmol/ L 09/03 3:40 AM CDT [facility] Not Available Not Available 09/07/2024 10:54:21 09/04/19 22 09/03/2021 Basic metab olic 1999 panel - Serum or Plasm a potassium [moles/volum e] in serum or plasma 3.6 mmol/ L low: 3.5mmo l/Lhig h: 4.5mmo l/L Potas sium 3.6 3.5 - 4.5 mmol/ L 09/03 3:40 AM CDT [facility] Not Available Not Available 09/07/2024 10:54:21 09/04/19 22 09/03/2021 Basic metab olic 1999 panel - Serum or Plasm a chloride [moles/volum e] in serum or plasma 107 mmol/ L low: 98mmol /Lhigh : 107mmo l/L Chlor charli 107 98 - 107 mmol/ L 09/03 3:40 AM CDT [facility] Not Available Not Available 09/07/2024 10:54:21 09/04/19 22 09/03/2021 Basic metab olic 1999 panel - Serum or Plasm a carbon dioxide, total [moles/volum e] in serum or plasma 20 mmol/ L low: 22mmol /Lhigh : 29mmol /L low CO2 20 (L) 22 - 29 mmol/ L 09/03 3:40 AM T [facility] Not Available Not Available 09/07/2024 10:54:21 09/04/19 22 09/03/2021 Basic metab olic 1999 panel - Serum or Plasm a glucose [mass/volume ] in serum or plasma 161 mg/dL low: 70mg/d Lhigh: 115mg/ dL high Gluco se 161 (H) 70 - 115 mg/dL 09/03 3:40 AM CDT [facility] Not Available Not Available 09/07/2024 10:54:21 09/04/19 22 09/03/2021 Basic metab olic 1999 panel - Serum or Plasm a calcium [moles/volum e] in serum or plasma 8.5 mg/dL low: 8.4mg/ dLhigh : 10.2mg /dL Calci um 8.5 8.4 - 10.2 mg/dL 09/03 3:40 AM CDT [facility] Not Available Not Available 09/07/2024 10:54:21 09/04/19 22 09/03/2021 Basic metab olic 2000 panel - Serum or Plasm a anion gap 15 low: 8high: 18 Anion Gap 15 8 - 18 09/03 3:40 AM CDT [facility] Not Available Not Available 09/07/2024 10:54:21 09/04/19 22 09/03/2021 Basic metab olic 2000 panel - Serum or Plasm a urea nitrogen/cre atinine [mass ratio] in serum or plasma 10 low: 7high: 23 BUN/C reati nine Ratio 10 7 - 23 09/03 3:40 AM CDT [facility] Not Available Not Available 09/07/2024 10:54:21 09/04/19 22 09/03/2021 Basic metab olic 2000 panel - Serum or Plasm a osmolality calculated 287 text: 270 - 300 mOsm/k g Osmol angelique Bentleyu lated 287 270 - 300 mOsm/ kg 09/03 3:40 AM CDT [facility] Not Available Not Available 09/07/2024 10:54:21 09/04/19 22 09/03/2021 Basic metab olic 2000 panel - Serum or Plasm a glomerular filtration rate/1.73 sq M.predicted [volume rate/area] in serum, plasma or blood by creatinine-b ased formula (CKD-epi) text: >=90 mL/min /1.73 m2 eGFR by CKD-E PI >90 >=90 mL/mi n/1.7 3 m2 09/03 3:40 AM CDT [facility] Not Available Not Available 09/07/2024 10:54:21 09/04/19 22 09/03/2021 Basic metab olic 2000 panel - Serum or Plasm a interpretati on and review of laboratory results Abnorm al Not Available Not Available 10:54:21 Result Notes None recorded. Problems Name Problem SNOMED Code Status Onset Date Resolution Date Notes Provider Name and Address Organization Details Recorded Time [facility] Active 2019 Anastacio Archer MD Attn: Zanecarmen soler,[place], [address], [place] [facility] 0 11:48:12 History of myocardial infarction 268717651 Active 2019 Last in 2011 Anastacio Archer MD Attn: Leah karlene,[address] [place], [address], [place] [facility] 0 11:50:00 History of placement of stent for coronary artery disease 563224942 Active 2019 Anastacio Archer MD Attn: Leah karlene,[address] [place], [address], [place] [facility] 0 11:50:39 Gastroesoph ageal reflux disease 801633716 Active 2019 Anastacio Archer MD Attn: Leah karlene,[address] [place], [address], [place] [facility] 0 11:55:52 Impotence Active 2019 Anastacio Archer MD Attn: Leah karlene,[address] [place], [address], [place] [facility] 0 12:00:27 Shoulder pain 64314293 Active 2019 Anastacio Archer MD Attn: Leah karlene,[address] [place], [address], [place] [facility] 0 11:40:57 Uncontrolle d type 2 diabetes mellitus 338675481 Active Cherri Bardshaw MD Attn: Leah karlene,[address] [place] [address], [address], [place] [facility] 6 19:01:41 Chronic obstructive pulmonary disease 74872677 Active Cherri Bradshaw MD Attn: Leah soler[address] [place] [address], [address], [place] [facility] 6 19:01:41 Impaired dentition 540132914 Active Cherri Bradshaw MD Attn: Leah soler,[address] [place], [address], [facility] 6 19:01:41 Tobacco dependence syndrome 74822474 Active Cherri Bradshaw MD Attn: Leah soler,[address] [place], [address], [facility] 6 19:01:41 Coronary arterioscle rosis in [place] artery 9181533340197 Active Cherri Bradshaw MD Attn: Leah soler,[address] [place], [address], [facility] 6 19:01:41 Problem Notes None recorded. Procedures Surgical History Date Name Laterality Status Provider Name and Address Organization Details Recorded Time Hernia Repair completed Cherri back MD Attn: Accounting, [place], [address], [facility] 11/05/2015 14:28:20 Imaging Results None recorded. Procedure [...] Address Organization Details Last Updated DateTime 0 [address].2 1 g 28.2 kg/m2 182.88 cm 97.9 [degF] 98 % 98 % 73 /min 118 mm[Hg] 80 mm[Hg] Dianne Truong [place] [facility] 0 11:15:24 Date Recorded Body height Provider Name an d Address Organization Details Last Updated DateTime 01/08/2020 182.88 cm Anastacio Archer MD Attn: Accounting [address] , [place], [address], [place] [facility] 01/08/2020 12:19:01 Date Recorded Body height Provider Name an d Address Organization Details Last Updated DateTime 03/19/2021 182.88 cm Dianne Truong MA [facility] 15:59:49 Date Recorded Body mass index (BMI) Body weight Body height Oxygen saturation Oxygen saturation in Arterial blood by Pulse oximetry Body temperature Heart rate Systolic blood pressure Diastolic blood pressure Provider Name and Address Organization Details Last Updated DateTime 6 32.1 kg/m2 772664. 82492 g 182.88 cm 96 % 96 % 97.8 [degF] 86 /min 144 mm[Hg] 84 mm[Hg] September ROCIO Alba [facility] 6 14:22:03 Social History Question Answer Notes LastModified by Organizat ion Details LastModified Time Tobacco Smoking Status Current Every Day Smoker September ROCIO Alba null, [facility] 11/05/2015 14:15:57 Do You Have An Advance [...] Atrial Fibrillation N High Blood Pressure Y Depression N COPD Y Blood Clots Y Anxiety Disorder N Muscle, Joint, or Bone Problems N Acid Reflux (GERD) Y Cancer N Stroke N High Cholesterol Y Liver Disease N Headaches N Kidney or Bladder Problems N Thyroid Problems N GI Problems N Skin Problems N Anemia N Heart Attack (PR) Y Diabetes Y Seizures/Epilepsy N Asthma N Allergies N Hepatitis N Heart Failure N Osteoporosis N Immunizations Vaccine Type Date Status Note Provider Nam e and Address Organization Details Recorded Time pneumococcal polysaccharide PPV23 5 completed Cherri Bradshaw MD Attn: Accounting,[address] [place], [address], [facility] 11/05/2015 14:30:04 Tdap 1 completed Cherri Bradshaw MD Attn: Accounting,[address] [place], [address], [facility] 11/05/2015 14:30:04 Past Encounters Encounter ID Performer Location Encounter Start Date Encounter Closed Date Diagnosis/Indication Diagnosis SNOMED-CT Code Diagnosis ICD10 Code Diagnosis Note [id number] Cherri Bradshaw MD [facility] (Adult Med) [address] [place] [address] 11/05/2015 13:47:29 11/05/2015 18:07:14 General examination of patient [id number] Z00.01 55 y/o WM who was last seen by Dr. Brito 8 months ago, he [facility]. His PMHX includes IDDM, GERD, HTN, CAD s/p PR x 2 as well as stents (Dr. Watson), Hyperchole sterolemia and COPD. Uncontroll ed type 2 diabetes mellitus 264662607 E11.65 He reports a HBA1C of 11, he will be changed to Glimepirid e 4mg po daily instead of 2mg po bid, a diabetic diet was discussed in detail. He previously had tried Metformin, unfortunat john he could not tolerate it. Screening for malignant neoplasm of prostate 854697396 Z12.5 Discussed Screening for malignant neoplasm of colon 193958482 Z12.11 Apparently this could not be done due to his anti platelet therapy, I have given him a stool occult card. Chronic ob structive pulmonary disease 22110144 J44.9 Copy of PFTS? Impaired dentition 22785 4008 K03.9 Apparently this could not be done due to his antiplatel et therapy. Tobacco de pendence syndrome 47133350 F17.290 Cessation was discussed, he has failed Chantix which had helped. Coronary arteriosclerosis in [place] artery 9897508588 107 I25.10 [id number] MD Sean Ramirez (Adult Med) [address] [place] [address] 12/24/2019 10:49:54 12/24/2019 12:10:06 Essential hypertension 61672738 I10 Coronary arteriosclerosis in [place] artery 1653814722 107 I25.10 Uncontroll ed type 2 diabetes mellitus 041129528 E11.65 Chronic ob structive pulmonary disease 59083936 J44.9 Impaired dentition 38076 4008 K03.9 Tobacco de pendence syndrome 76327280 F17.200 History of placement of stent for coronary artery disease 384484987 Z95.5 History of myocardial infarction 408956320 I25.2 Impotence 847570862 N52. 9 [id number] MD Sean Ramirez (Adult Med) [address] [place] [phone] 01/08/2020 12:18:22 01/09/2020 13:18:49 Shoulder pain 47100938 M25.519 Rx sent Health Concerns Section Related Observation LastModified by Organization Detai ls LastModified Time None Recorded Concern Status LastModified by Organization Details LastModified Time None Recorded Advance Directives Directive N: Payers Encounter Date Sequence Insurance Name Policy Number Policy Sylvester Covered Member ID Sylvester Member ID Guarantor Name 11/05/2015 1 [facility] ([facility]) [id number] Royal Qiu [id number] Royal Qiu 12/24/2019 1 [place] [id number] Royal Qiu [id number] Royal Qiu 01/08/2020 1 [place] [id number] Royal Qiu [id number] Royal Qiu Notes Date Note Type Note [...] feet Cherri Bradshaw MD Attn: Accounting[address] [place], [address], [facility] 11/05/2015 19:02:11 12/24/2019 text/html Here to be established with a PCP. Was seen in ED [facility] three days ago for dizzinness. He was discharged. Labs unavailable at present Anastacio Archer MD Attn: Accounting[address] [place], [address], [facility] 12/24/2019 12:04:53 01/08/2020 text/html Has pain in his shoulder extending to his neck Anastacio Archer MD Attn: Accounting[address] [place], [address], [place] 01/08/2020 12:24:34
--- OUTSIDE RECORDS SUMMARY | 2024-09-27 18:38 | XMS_ITS | Clinical Summary ---
Author Organization [facility] Address [address] [place] [address] Care Team Providers Care Lead Miner Name Role Phone Unavailable Primary Care Provider [...]
--- OUTSIDE RECORDS SUMMARY | 2024-09-27 18:38 | XMS_ITS | Clinical Summary ---
Author Organization [facility] Address [address] [place] [address] Care Team Providers Care Informatics Developer Name Role Phone Unavailable Primary Care Provider Unavailabl e Source Comments [facility],non-owned Affiliates and Associated Physician Practices is amultiple site organization consisting of ambulatory clinics and hospital sitesin [place], [place], [place] and [place]. This disclosure is being madepursuant to the Care Everywhere program and may not contain all information available regarding this patient. Last updated 18.[facility] Allergies Active Allergy Reactions Criticality Noted Date [...] history exists COVID-19 VACCINE ( season) 2024 DEPRESSION SCREENING 06/20/2024 DIABETES - URINE PROTEIN SCREENING 06/20/2024 INFLUENZA VACCINE (Season Ended) 2025 HEPATITIS B VACCINE Aged Out No longe r eligible based on patient's age to complete this topic HIB VACCINE Aged Out No longer eligi ble based on patient's age to complete this topic HPV VACCINE Aged Out No longer eligi ble based on patient's age to complete this topic MENINGOCOCCAL (Group B) VACCINE SHARED DECISION-MAKING Aged Out No longer eligible based on patient's age to complete this topic MENINGOCOCCAL GROUPS A/C/Y/W VACCINE Aged Out No longer eligible based on patient's age to complete this topic Procedures Procedure Name Priority Date/Time Associated Diagnosis Comments BASIC METABOLIC PANEL (CALCIUM TOTAL) Routine 09/03/2021 2:48 AM CDT Cerebral brain hemorrhage HEMOGLOBIN A1C Routine 09/03/2021 2:48 AM CDT Cerebral brain hemorrhage from Last 3 Months or Most Recently Relevant to Health Maintenance Results * (ABNORMAL) HEMOGLOBIN A1C (09/03/2021 2:48 AM CDT) Hemoglobin A1c 11.5(H) <=5.6 % 09/03/2021 10:28 AM CDT [facility] Estimated Average Glucose 283 mg/dL 09/03/2021 10:28 AM CDT [facility] Comment: HbA1c Interpretation: Normal : < 5.7% Pre-diabetes: 5.7-6.4% Diabetes: Equal to or greater than 6.5% Test results diagnostic of diabetes should be repeated for confirmation. Treatment target values recommended by ADA and other clinical organizations should be used to evaluate metabolic control in patients. Reference: [place] Diabetes Association, Standards of Care in Diabetes [...] - CHEMISTRY ORD ERABLES [facility] [address] [place] [address], [facility] [phone] * (ABNORMAL) BASIC METABOLIC PANEL (CALCIUM TOTAL) (09/03/2021 2:48 AM CDT) Pathologist [facility] BUN 7 7 - 26 mg/dL 09/03/2021 3:40 AM CDT [facility] Creatinine 0.68(L) 0.71 - 1.16 mg/dL 09/03/2021 3:40 AM CDT [facility] Sodium 138 136 - 145 mmol/L 09/03/2021 3:40 AM CDT [facility] Potassium 3.6 3.5 - 4.5 mmol/L 09/03/2021 3:40 AM CDT [facility] Chloride 107 98 - 107 mmol/L 09/03/2021 3:40 AM [facility] CO2 20(L) 22 - 29 mmol/L 09/03/2021 3:40 AM [facility] Glucose 161(H) 70 - 115 mg/dL 09/03/2021 3:40 AM [facility] Calcium 8.5 8.4 - 10.2 mg/dL 09/03/2021 3:40 AM [facility] Anion Gap 15 8 - 18 09/03/2021 3:40 AM [facility] BUN/Creatinine Ratio 10 7 - 23 09/03/2021 3:40 AM [facility] Osmolality Calculated 287 270 - 300 mOsm/kg 09/03/2021 3:40 AM [facility] eGFR by CKD-EPI >90 >=90 mL/min/1.7 3 m2 09/03/2021 3:40 AM [facility] Blood BLOOD SPECIMEN / Unknown Lab Venipuncture / Unknown 09/03/2021 2:48 AM CDT 09/03/2021 3:04 AM T Jeremy Palomino MD LAB - CHEMISTRY ORD ERABLES [facility] [address] [place] [address], [facility] [phone] from Last 3 Months or Most Recently Relevant to Health Maintenance Advance Directives * Full Code (Latest Code Status on File) Date Activated Date Inactivated Comments 09/01/2021 10:29 PM 09/03/2021 5:42 PM
--- OUTSIDE RECORDS SUMMARY | 2024-09-27 18:38 | XMS_ITS | Clinical Summary ---
Author Organization [facility] Address [address] [place] [address] Phone Care Team Providers Care Wilderness Guide Name Role Phone Provider, None Primary Care [...] sodium chloride (OCEAN) 0.65 % Solution 1 [place] by Nasal route as needed. 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 Respiratory Rate 16 05/21/2016 9:40 PM JEWEL [employer] BRUSHING MACHINE OPERATOR Oxygen Saturation 96% 05/21/2016 9:40 PM JEWEL [employer] BRUSHING MACHINE OPERATOR Inhaled Oxygen Concentration - - Weight 99.8 kg (220 lb) 05/21/2016 9:40 PM JEWEL [employer] BR[employer]ING MACHINE OPERATOR Height 182.9 cm (6') 05/21/2016 9:40 PM J[employer]EL [employer] BR[employer]ING MACHINE OPERATOR Body Mass Index 29.84 05/21/2016 9:40 PM [employer] BR[employer]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
--- OUTSIDE RECORDS SUMMARY | 2024-09-27 18:39 | XMS_ITS | Referral Summary ---
Author Organization [facility] [address] [facility] Address [address] [place] [address] Care Team Providers Care Surgical Garment Fitter Name Role Phone Unknown, Notinfile Primary Care Provider Unavail able Salbador Granados MD Unavailable [phone] Rubin Clayton MD Unavailable Miscellaneous, Not In File Unavailable Unava ilable Humphrey Manriquez MD Unavailable Allergies Active Allergy Reactions Criticality Noted Date [...] (05/01/2021): Added automatically from request for surgery [id number] Cerebrovascular accident (CVA) Social History Tobacco Use Types Packs/Day Years Used Date Smoking Tobacco: Former Cigarettes 1 40 Smokeless Tobacco: Never Tobacco Cessation:Ready to Q uit: Yes; Counseling Given: Yes Comments:Stop smoking 04/2021 after [place] Alcohol Use Standard Drinks/Week Comments No 0 [...] on file Legal Sex Male 11:30 PM [employer] Gender Identity Not on file Sexual Orientation Not on file Last Filed Vital Signs Vital Sign Reading Time Taken Comments Blood Pressure 129/84 09/15/2021 12:18 PM CDT Pulse 80 09/15/2021 12:18 PM CDT Temperature 36.6 C (97.8 F) 08/21/2021 6:00 AM [employer] Respiratory Rate 14 09/15/2021 12:18 PM CDT Oxygen Saturation 97% 09/15/2021 12:18 PM CDT Inhaled Oxygen Concentration - - Weight 84.8 kg (187 lb) 09/15/2021 12:18 PM CDT Height 167.6 cm (5' 6 ) 09/15/2021 12:18 PM CDT Body Mass Index 30.18 09/15/2021 12:18 PM CDT Plan of Treatment Not on file Medical Devices Implanted Type Area Drawbench Operator Device Identifier Shelf Expiration Date Model / Serial / Lot Nearbox [id number] Sensation Plus Statlock 8fr 17.4mm .027in 6in 258mm Fiber Optic - [id number] Implanted:Qty: 1 on 05/01/2021 by Rubin Clayton MD at [facility] 08/14/2023 [id number] / / [id number] Insurance PLAN HEIDY ALVAREZ [facility] PLAN Advance Directives For more information, please contact: [phone] * Full Code (Latest Code Status on File) Date Activated Date Inactivated Comments 08/19/2021 4:45 PM 08/21/2021 7:26 PM * Full Code Date Activated Date Inactivated Comments 07/29/2021 4:33 AM 07/30/2021 9:59 PM * Full Code Date Activated Date Inactivated Comments 05/09/2021 11:04 AM 06/03/2021 7:39 PM * Full Code Date Activated Date Inactivated Comments 05/01/2021 10:48 PM 05/08/2021 10:11 AM Care Teams Surgical Garment Fitter Relationship Specialty Start Date End Date Unknown, Notinfile PCP - General 05/01/21 [place] [id number] [place] [address] Surgeon Cardiothoracic Surgery 05/01/21 [place] [id number] [place] [address] Referring Physician Cardiovascular Disease 06/03/21 Miscellaneous, Not In File 07/30/21 Humphrey Manriquez MD [address] [facility] [address] [place] [address] Consulting Physician Neurology 07/30/21
--- OUTSIDE RECORDS SUMMARY | 2024-09-27 18:39 | XMS_ITS | CONTINUITY OF CARE DOCUMENT ---
Author Name darling hastings Address Unknown Organization [facility] Address [address] [place] [address] Phone [phone] Care Team Providers Care Assembler Lay Ups Name Role Phone Walter MEMBRENO, Nasima Unavailable [phone] MINA MEMBRENO, RYLEE Roass Unavailable [phone] RYLEE ENRIQUEZ MD Unavailable [phone] PROBLEMS Condition Status Date Provider Notes Family History of Hypertension: completed - Juvencio Watson MD Family History of Hypertension: completed - Juvencio Watson MD Obesity active Nasima Watson MD HTN essential active Nasima Watson MD Hyperlipidemia active Rosalind Arroyo Tobacco abuse active Nasima Watson MD Diabetes mellitus, type II, uncontrolled, w/vascular comps active Nasima Watson MD CAD S/P LAD stent 01/2010 active Nasima hernandez MD Shortness of breath active Nasima Montez D Vitamin D deficiency active Nasima Watson MD Claudication active Nasima Watson MD CVA active Nasima Watson MD Snoring active Alexa Toneymiglalisa PONY EDGER ENCOUNTERS Date Type Provider Location Encounter Diag nosis - In-person encounter Office Visit Nasima Watson MD [facility] Snoring - In-person encounter Office Visit Nasima Watson MD [facility] - In-person encounter Office Visit Nasima Watson MD [facility] CVA - In-person encounter Office Visit Nasima Watson MD [facility] - In-person encounter Office Visit Nasima Watson MD [facility] - In-person encounter Office Visit Nasima Watson MD [facility] - In-person encounter Office Visit Nasima Watson MD [facility] - In-person encounter Office Visit Nasima Watson MD [facility] Claudication - In-person encounter Office Visit Nasima Watson MD [facility] - In-person encounter Office Visit Nasima Watson MD [facility] Vitamin D deficiency - In-person encounter Office Visit Nasima Watson MD [facility] - In-person encounter Office Visit Nasima Watson MD [facility] Diabetes mellitus, type II, uncontrolled, w/vascular compsCAD S/P LAD stent 01/2010 - In-person encounter Office Visit Nasima Watson MD [facility] Family History of Hypertension:Family History of Hypertension: - In-person encounter Office Visit Nasima Watson MD [facility] - In-person encounter Office Visit Nasima Watson MD [facility] HyperlipidemiaShortness of breath - In-person encounter Office Visit Nasima Watson MD [facility] ObesityHTN essentialHyperlipidemiaTobacco abuseDiabetes mellitus, type II, uncontrolled, w/vascular compsCAD S/P LAD stent 01/2010 VITAL SIGNS Date Observation Value Provider Body Mass Index (Ratio) 26.72 kg/m2 Breezy Watson MD blood pressure, diastolic 60 mm[Hg] Li nkLogic blood pressure, systolic 96 mm[Hg] Coco kLogic blood pressure, cuff size regular Ja rret blood pressure, diastolic 60 mm[Hg] Ja rret blood pressure, systolic 96 mm[Hg] Jar ret pulse rate 77 /min Stevenson y oxygen saturation, oximetry 98 % Stevenson respiratory rate E&M 12 /min Stevenson weight E&M 197 [lb_av] Stevenson y height E&M 72 [in_i] Stevenson y Body Mass Index (Ratio) 27.39 kg/m2 Karoline alen Goldberg blood pressure, cuff size large Ke rri Gruenenfeld blood pressure, diastolic 80 mm[Hg] Ke rri Gruenenfeld blood pressure, systolic 130 mm[Hg] Ker ri Flakouenenfelder oxygen saturation, oximetry 97 % Patricia Grlatanyanenfelder respiratory rate E&M 16 /min Patricia G mikalenenfelder pulse rate 82 /min Patricia Gruenenfe er weight E&M 202 [lb_av] Patricia Gruenenfe lder height E&M 72 [in_i] Patricia Gruenenfe lder Body Mass Index (Ratio) 25.77 kg/m2 Brit alen Goldberg blood pressure, diastolic 61 mm[Hg] Sa ra Tuttle blood pressure, systolic 96 mm[Hg] Veronica a Tuttle oxygen saturation, oximetry 97 % Bertha Tuttle respiratory rate E&M 18 /min Bertha Si ms pulse rate 84 /min Bertha Tuttle blood pressure, cuff size regular Sa ra Tuttle weight E&M 190 [lb_av] Bertha Tuttle height E&M 72 [in_i] Bertha Tuttle Body Mass Index (Ratio) 26.17 kg/m2 Eugene galindo Nacht blood pressure, diastolic 77 mm[Hg] Li nkLogic blood pressure, systolic 119 mm[Hg] Coco kLogic blood pressure, diastolic 77 mm[Hg] Ca therine [place] blood pressure, systolic 119 mm[Hg] Cat herine Mitch oxygen saturation, oximetry 99 % Tereza Mitch respiratory rate E&M 16 /min Catheri ne Mitch pulse rate 98 /min Tereza Mitch weight E&M 193 [lb_av] Tereza Mitch blood pressure, cuff size regular Ca therine [place] height E&M 72 [in_i] Tereza Mitch Body Mass Index (Ratio) 28.45 kg/m2 Murray Carrillo blood pressure, diastolic 75 mm[Hg] Li nkLogic blood pressure, systolic 119 mm[Hg] Coco kLogic blood pressure, resting Yes Omar ty Krishna blood pressure, cuff size regular Kr isty Regina blood pressure, diastolic 75 mm[Hg] Kr isty Krishna blood pressure, systolic 119 mm[Hg] Kri sty Krishna oxygen saturation, oximetry 95 % Adri Krishna respiratory rate E&M 19 /min Adri Krishna pulse rate 77 /min Adri Regina weight E&M 209.8 [lb_av] Adri Haney height E&M 72 [in_i] Adri Haney Body Mass Index (Ratio) 28.34 kg/m2 Julien n Kyte blood pressure, cuff size large Ke rri Gruenenfelder blood pressure, diastolic 70 mm[Hg] Ke rri Gruenenfelder blood pressure, systolic 106 mm[Hg] Mallika ri Flakouenenfelder oxygen saturation, oximetry 94 % Patricia Ramonanenfelder respiratory rate E&M 16 /min Patricia Brock anastacionfelder pulse rate 102 /min Patricia Grlataynanenfe lder weight E&M 209 [lb_av] Patricia Gruenenfe lder height E&M 72 [in_i] Patricia Gruenenfe er Body Mass Index (Ratio) 29.43 kg/m2 Julien n Frandyte blood pressure, cuff size regular Cy ntjuan carlosjermaine Duarte blood pressure, diastolic 74 mm[Hg] Cy nthia Duarte blood pressure, systolic 114 mm[Hg] Amy berenice Duarte oxygen saturation, oximetry 96 % Erika Duarte respiratory rate E&M 16 /min Erika Duarte pulse rate 85 /min Erika Campbel l weight E&M 217 [lb_av] Erika Campbel l height E&M 72 [in_i] Erika Campbel l Body Mass Index (Ratio) 29.43 kg/m2 Breezy Watson MD blood pressure, diastolic 70 mm[Hg] Da dane Chino blood pressure, systolic 110 mm[Hg] Dac alisa Chino oxygen saturation, oximetry 94 % Kathy Chino respiratory rate E&M 18 /min Kathy V oss pulse rate 89 /min Kathy Chino weight E&M 217 [lb_av] Kathy Chino height E&M 72 [in_i] Kathy Chino Body Mass Index (Ratio) 28.15 kg/m2 Breezy Watson MD blood pressure, diastolic 76 mm[Hg] Maryse Cooley blood pressure, systolic 122 mm[Hg] Bruna Cooley oxygen saturation, oximetry 95 % Melida Cooley respiratory rate E&M 18 /min Keyonna Cooley pulse rate 86 /min Melida fields weight E&M 207.6 [lb_av] Melida campon height E&M 72 [in_i] Melida fields Body Mass Index (Ratio) 28.51 kg/m2 Breezy Watson MD blood pressure, diastolic 80 mm[Hg] Maryse Allen Yasir blood pressure, systolic 112 mm[Hg] Bruna Cooley oxygen saturation, oximetry 98 % Melida Cooley respiratory rate E&M 18 /min Keyonna Cooley pulse rate 88 /min Melida fields weight E&M 210.2 [lb_av] Melida campon height E&M 72 [in_i] Melida fields Body Mass Index (Ratio) 28.75 kg/m2 Breezy Watson MD blood pressure, cuff size regular Ke rri Malik blood pressure, diastolic 92 mm[Hg] Ke rri Malik blood pressure, systolic 134 mm[Hg] Mallika Gan oxygen saturation, oximetry 95 % Patricia Gan respiratory rate E&M 16 /min Patricia G anastacionfbubba pulse rate 75 /min Patricia Harie lder weight E&M 212 [lb_av] Patricia Harie lder height E&M 72 [in_i] Patricia Ramonanenfe er Body Mass Index (Ratio) 29.29 kg/m2 Breezy Watson MD blood pressure, resting Yes Breezy Watson MD blood pressure, cuff size regular Ke rri Malik blood pressure, diastolic 87 mm[Hg] Ke rri Malik blood pressure, systolic 129 mm[Hg] Mallika ri Malik oxygen saturation, oximetry 98 % Patricia Malik respiratory rate E&M 16 /min Patricia G ryland pulse rate 82 /min Patricia Harie er weight E&M 216 [lb_av] Patricia Harie er height E&M 72 [in_i] Patricia Grnafisae er blood pressure, diastolic 76 mm[Hg] Ke rri Malik blood pressure, systolic 135 mm[Hg] Mallika ri Malik pulse rate 87 /min Patricia Harie er oxygen saturation, oximetry 96 % Patricia Flakosteve respiratory rate E&M 16 /min Patricia G mikalenenfbubba Body Mass Index (Ratio) 32.41 kg/m2 Javier i Malik weight E&M 239 [lb_av] Patricia Grnafisae er Body Mass Index (Ratio) 34.31 kg/m2 Anea mario Brown blood pressure, diastolic 77 mm[Hg] An eatris Brown blood pressure, systolic 122 mm[Hg] Ane atris Flaquito pulse rate 92 /min Aneatris Flaquito oxygen saturation, oximetry 95 % Aneatris Flaquito respiratory rate E&M 18 /min Aneatri s Flaquito weight E&M 253 [lb_av] Aneatris Flaquito Body Mass Index (Ratio) 33.90 kg/m2 Gertrudis gonzalez No blood pressure, diastolic 78 mm[Hg] Me kathryn No blood pressure, systolic 113 mm[Hg] Rubi mckeon No pulse rate 88 /min Rylee No oxygen saturation, oximetry 96 % Rylee No respiratory rate E&M 16 /min Rylee No weight E&M 250 [lb_av] Rylee oN Body Mass Index (Ratio) 33.50 kg/m2 Mary Ann mcclendon Tomer blood pressure, diastolic 77 mm[Hg] Rishi zamora Jeff blood pressure, systolic 134 mm[Hg] Favian jang Jeff pulse rate 84 /min Yesi Jeff oxygen saturation, oximetry 95 % Yesi Jeff respiratory rate E&M 17 /min Yesi Jeff weight E&M 247 [lb_av] Yesi Tomer height E&M 72 [in_i] Yesi Tomer ALLERGIES Allergy Name Onset Date Reaction Criticality Status GLUCOPHAGE GI symptoms High Criticality active REGLAN Low Criticality active RESULTS Date Observation Value Provider Reference Range Interpretation Location LDL cholesterol, serum 96 mg/dL Ronnie Milliganberg microalbumin/creati nine ratio, urine <4.7 mg/g creat [facility] 0.0-30.0 microalbumin, random, urine <3.0 ug/mL [facility] Not Estab. creatinine, random, urine 63.2 mg/dL [facility] Not Estab. hemoglobin A1C, blood, as % of total hemoglobin 10.8 % [facility] 4.8-5.6 High lipoprotein, beta, serum, point, quantitative, calculated 96 mg/dL [facility] 0-99 very low density lipoproteins 60 mg/dL [facility] 5-40 High HDL cholesterol, serum 38 mg/dL [facility] >39 Low triglyceride, serum, random 298 mg/dL [facility] 0-149 High cholesterol, serum 194 mg/dL [facility] [phone]/04 /26 basophil count, absolute 0.1 x10E3/uL [facility] 0.0-0.2 Eosinophil Absolute Count 0.3 X10E3/UL [facility] 0.0-0.4 monocyte count, blood, automated 1.1 X10E3/UL [facility] 0.1-0.9 High lymphocyte count, blood, automated 3.2 X10E3/UL [facility] 0.7-3.1 High Absolute Neutrophils 7.0 X10E3/UL [facility] 1.4-7.0 basophils as percent of blood leukocytes 0 % [facility] Not Estab. eosinophils as percent of blood leukocytes 3 % [facility] Not Estab. monocytes as percent of blood leukocytes 10 % [facility] Not Estab. lymphocytes as percent of blood leukocytes 27 % [facility] Not Estab. neutrophils as percent of blood leukocytes 60 % [facility] Not Estab. platelet count 372 X10E3/UL [facility] 625-226 3987/04 /26 red blood cell distribution width 13.7 % [facility] 12.3-15.4 mean corpuscular hemoglobin concentration, RBC 33.0 G/DL [facility] 31.5-35.7 mean corpuscular hemoglobin, RBC 31.3 pg [facility] 26.6-33.0 mean corpuscular volume, RBC 95 fL [facility] 79-97 hematocrit, blood 38.8 % [facility] 37.5-51.0 hemoglobin, blood 12.8 g/dL [facility] 13.0-17.7 Low erythrocyte (RBC) count 4.09 X10E6/UL [facility] 4.14-5.80 Low leukocyte count, blood 11.7 X10E3/UL [facility] 3.4-10.8 High alanine aminotransferase (SGPT), serum 12 1/L [facility] 0-44 aspartate aminotransferase (SGOT), serum 12 1/L [facility] 0-40 alkaline phosphatase, serum 99 1/L [facility] 39-117 bilirubin, serum, total <0.2 mg/dL [facility] 0.0-1.2 albumin/globulin ratio, serum 1.9 [facility] 1.2-2.2 globulin, serum 2.3 [facility] 1.5-4.5 albumin, serum 4.4 g/dL [facility] 3.5-5.5 protein, total, serum 6.7 g/dL [facility] 6.0-8.5 calcium, serum 9.3 mg/dL [facility] 8.7-10.2 carbon dioxide, venous blood 21 mmol/L [facility] 18-29 chloride, serum 98 mmol/L [facility] 96-106 potassium, serum 4.6 mmol/L [facility] 3.5-5.2 sodium, serum 132 mmol/L [facility] 134-144 Low urea nitrogen/creatinine ratio, serum 16 [facility] 9-20 eGFR if 104 mL/min/{1.73_ m2} [facility] >59 eGFR if not 90 mL/min/{1.73_ m2} [facility] >59 creatinine, serum 0.94 mg/dL [facility] 0.76-1.27 urea nitrogen, blood 15 mg/dL [facility] 6-24 blood glucose, random 333 mg/dL [facility] 65-99 High hemoglobin A1C, blood, as % of total hemoglobin 13.6 % OF TOTAL HGB [facility] <5.7 High alanine aminotransferase (SGPT), serum 14 1/L [facility] 9-46 Normal aspartate aminotransferase (SGOT), serum 12 1/L [facility] 10-35 Normal alkaline phosphatase, serum 96 1/L [facility] 40-115 Normal bilirubin, serum, total 0.3 mg/dL [facility] 0.2-1.2 Normal albumin/globulin ratio, serum 1.5 (calc) [facility] 1.0-2.5 Normal globulins, serum, total 2.8 G/DL (CALC) [facility] 1.9-3.7 Normal albumin, serum 4.1 g/dL [facility] 3.6-5.1 Normal protein, total, serum 6.9 g/dL [facility] 6.1-8.1 Normal calcium, serum 9.3 mg/dL [facility] 8.6-10.3 Normal carbon dioxide, venous blood 22 mmol/L [facility] 20-31 Normal chloride, serum 102 mmol/L [facility] 98-110 Normal potassium, serum 4.3 mmol/L [facility] 3.5-5.3 Normal sodium, serum 132 mmol/L [facility] 135-146 Low urea nitrogen/creatinine ratio, serum NOT APPLICABLE (calc) [facility] 6-22 Estimated Glomerular Filtration Rate (calc) 110 mL/min/{1.73_ m2} [facility] > OR = 60 Normal creatinine, serum 0.91 mg/dL [facility] 0.70-1.33 Normal urea nitrogen, blood 9 mg/dL [facility] 7-25 Normal blood glucose, random 380 mg/dL [facility] 65-99 High pro brain natriuretic peptide 40.7 pg/mL [facility] 0.0 - 125.0 very low density lipoproteins 55.2 mg/dL [facility] 5.0 - 40.0 High LDL/HDL (low-density lipoprotein/high-de nsity lipoprotein) ratio 2.7 RATIO [facility] - lipoprotein, beta, serum, point, quantitative, calculated 106.8 (?) [facility] 0.0 - 100.0 High HDL cholesterol, serum 40.0 mg/dL [facility] 35.0 - 55.0 cholesterol, serum 202.0 mg/dL [facility] 0.0 - 200.0 High triglyceride, serum, fasting 276.0 mg/dL [facility] 0.0 - 150.0 High urea nitrogen/creatinine ratio, serum 12.2 [facility] - Estimated Glomerular Filtration Rate (calc) 93.5 (?) [facility] 59.0 - chloride, serum 99.4 mmol/L [facility] 98.0 - 107.0 potassium, serum 4.8 mmol/L [facility] 3.5 - 5.1 sodium, serum 135.0 mmol/L [facility] 136.0 - 145.0 Low creatinine, serum 0.9 mg/dL [facility] 0.7 - 1.2 carbon dioxide, venous blood 21.0 mmol/L [facility] 22.0 - 29.0 Low calcium, serum 9.2 mg/dL [facility] 8.6 - 10.2 urea nitrogen, blood 11.0 mg/dL [facility] 6.0 - 20.0 blood glucose, [facility].0 mg[facility] 99[facility]0 High red blood cell distribution width, size density 44.1 fL [facility] - immature granulocytes, percentage of total cells, blood 0.4 % [facility] - nucleated red blood cells as percent of blood leukocytes 0.0 % [facility] - red blood cell (erythrocyte) count, per high power field 0.0 10*3/UL [facility] - eosinophils as percent of blood leukocytes 1.6 % [facility] - neutrophils as percent of blood leukocytes 75.0 % [facility] - Absolute Neutrophils 15.0 CELLS/UL [facility] 1.5 - 7.8 High basophils as percent of blood leukocytes 0.6 % [facility] - Absolute Basophils 0.1 CELLS/UL [facility] 0.0 - 0.2 monocytes as percent of blood leukocytes 6.9 % [facility] - Absolute Monocytes 1.4 CELLS/UL [facility] 0.2 - 1.0 High lymphocytes as percent of blood leukocytes 15.5 % [facility] - Absolute Lymphocytes 3.1 CELLS/UL [facility] 0.9 - 3.9 mean platelet volume 12.1 (?) [facility] - platelet count 327.0 THOUSAND/UL [facility] 100.0 - 400.0 mean corpuscular hemoglobin concentration, RBC 32.9 G/DL [facility] 31.0 - 38.0 mean corpuscular hemoglobin, RBC 30.8 pg [facility] 25.0 - 35.0 mean corpuscular volume, RBC 93.8 fL [facility] 75.0 - 100.0 hematocrit, blood 42.0 % [facility] 35.0 - 55.0 hemoglobin, blood 13.8 g/dL [facility] 11.5 - 16.5 erythrocyte count, whole blood 4.5 MILLION/UL [facility] 3.5 - 5.5 hemoglobin A1C, blood, as % of total hemoglobin 13.5 % [facility] 4.0 - 6.0 High HISTORY OF MEDICATION USE Medication Status Instructions Dates Provider Indications Com ments Jardiance 10 mg tablet active TAKE 1 TABLET BY MOUTH ONCE DAILY 10/20 Deyanira Vance famotidine 40 mg tablet active Alexa Ventimiglia PONY EDGER carvedilol 3.125 mg tablet active Nasima Watson MD divalproex 500 mg tablet extended release 24 hr completed - 09/01 Alexa Ventimiglia [facility] lisinopril 5 mg tablet active Nasima Watson MD olanzapine 20 mg tablet active Nasima Watson MD carbamazepine 200 mg tablet active Nasima Watson MD atorvastatin 40 mg tablet active Nasima Watson MD pantoprazole 40 mg tablet,delayed release (DR/EC) completed Take 1 tablet by mouth once daily 12/23 - 09/01 [facility] fenofibrate 160 mg tablet active Take 1 tablet by mouth once daily 10/20 Nasima Watson MD sodium bicarbonate 650 mg tablet completed TAKE 2 TABLETS BY MOUTH TWICE DAILY - 01/06 Nasima Watson MD senna 8.6 mg tablet completed - 09/01 Alexaronaldo [facility] Jardiance 10 mg tablet completed Take 1 tablet by mouth once a day take instead of Farxiga 06/23 - 10/20 Katy Rdz carvedilol 3.125 mg tablet completed Take 1 tablet by mouth twice a day - 01/06 Nasima Watson MD clopidogrel 75 mg tablet active Take 1 tablet by mouth once a day Fina Huddleston RN Farxiga 10 mg tablet completed Take 1 tablet by mouth once a day - 06/23 Fina Huddleston RN midodrine 5 mg tablet active Take 3 tablet by mouth three times a day Fina Huddleston RN albuterol sulfate 90 mcg/actuation HFA aerosol inhaler active Fina Huddleston RN prasugrel 10 mg tablet completed Take 1 tablet by mouth once daily 06/21 - 06/23 Patricia Gan FreeStyle Lite Strips strip completed Use 1 strip via meter four times a day as directed 02/10 - 02/05 Azul Albarado glimepiride 2 mg tablet completed TAKE 1 TABLET BY MOUTH IN THE MORNING 01/20 - 09/01 Alexa [facility] Jardiance 10 mg tablet completed Take 1 tablet by mouth once a day 01/14 - 06/23 Nasima Bridges U-100 Insulin 100 unit/mL (3 mL) insulin pen active Inject 60 unit subcutaneously once a day 03/19 Erika Duarte TRAMADOL HCL 50 MG ORAL TABLET completed one tablet every 8 hours as needed for pain 11/07 - 01/06 Patricia Gan PANTOPRAZOLE SODIUM 40 MG TBEC completed Take 1 tablet by mouth once daily 06/29 - 01/06 Patricia Gan LEVEMIR FLEXTOUCH 100 UNIT/ML SUBCUTANEOUS SOLUTION PEN-INJECTOR completed inject 30 units in am and 50 units in evening 12/02 - 03/19 Erika Duarte pravastatin 80 mg tablet completed Take 1 tablet by mouth every night 08/31 - 01/06 Nasima Watson MD glimepiride 2 mg tablet completed Take 1 tablet by mouth every morning 08/03 - 01/20 Deyanira Vance ATORVASTATIN CALCIUM 80 MG ORAL TABLET completed Take one tablet daily 09/20 - 11/27 Karolina Tapia RN Replaces Pravastatin NOVOLIN 70/30 (70-30) 100 UNIT/ML SUBCUTANEOUS SUSPENSION completed Inject 60 units at bedtime 09/20 - 12/02 Nasima Watson MD FREESTYLE LITE TEST IN VITRO STRIP completed Check blood sugar up to 3 times daily 08/25 - 01/06 Patricia Gan VITAMIN D (ERGOCALCIFEROL ) 92709 UNIT ORAL CAPSULE completed One capsule once weekly for six weeks 10/12 - 01/06 Patricia Gan METFORMIN HCL 500 MG ORAL TABLET completed One tablet PO twice daily 10/12 - 01/06 Melida Cooley PRAVACHOL 80 MG ORAL TABLET completed take one tablet daily 10/12 - 09/20 Nasima Watson MD LEVEMIR FLEXPEN 100 UNIT/ML SUBCUTANEOUS SOLUTION PEN-INJECTOR completed Inject 30units in the morning and 50 units in the evening. PLEASE GIVE ENOUGH PENS FOR ONE MONTH 03/09 - 09/20 Nasima Watson MD AMOXICILLIN 500 MG ORAL CAPSULE completed Take 1 Capsule 3 Times a Day for 5 Days. 09/15 - 01/06 Patricia Gan Adult Aspirin Regimen 81 mg tablet,delayed release (DR/EC) active 1 tablet by mouth once a day 07/28 Nasima Watson MD lisinopril 10 mg tablet completed Take 1 tablet by mouth once a day 08/03 - 06/23 Fina Huddleston RN GLIMEPIRIDE 2 MG ORAL TABLET completed 1 tab daily - 01/06 Patricia Gan carvedilol 12.5 mg tablet completed Take 1 tablet by mouth twice a day 08/03 - 06/23 Fina Huddleston RN prasugrel 10 mg tablet completed Take 1 tablet by mouth once a day 08/31 - 06/21 Patricia Gan PRAVASTATIN SODIUM 80 MG ORAL TABLET completed 1 tab daily - 10/12 Nasima Watson MD fenofibrate 160 mg tablet completed 1 tablet by mouth once a day - 10/20 Nasima Watson MD pantoprazole 40 mg tablet,delayed release (DR/EC) completed Take 1 tablet by mouth once a day 03/08 - 12/23 Loree Crain SYMBICORT 160-4.5 MCG/ACT INHALATION AEROSOL completed twice daily - 01/06 Patricia Gan LANTUS 100 UNIT/ML SUBCUTANEOUS SOLUTION completed 30 units in the morning and 40 units in the evening 09/08 - 03/09 Kemal Colindres RN SOCIAL HISTORY Date Observation Value Provider number of years as a smoker 42 a Alexa Kathe [facility] smoking, date started 1977 [place] Kathe [facility] smoking history, tot al pack/year 44 Alexa Kathe [facility] smoking history, tot al pack/day 1/2 Alexa Kathe [facility] cigarette use yes Alexa Lia higuera [facility] smoking status Former smoker Alexa lealia [facility] social history reviewed E&M revi ewed - no changes required Alexa Fitzgeraldglalisa [facility] social history E&M Ethnicity: Ca edenasian M arital Status: Smoking History: Collin gamez is a former smoker. Xiomy Goldberg social history reviewed E&M revi ewed - no changes required [facility] use no Alexa jones [facility] number of years as a smoker 42 a Patricia Noriegaelder smoking, date started 1977 Patricia Noriegaelder smoking history, tot al pack/year 44 Patricia Noriegaelder smoking history, tot al pack/day 1/2 Patricia Patelnfelder cigarette use yes Patricia Noriega elder smoking status Former smoker Patricia yuelder social history reviewed E&M revi ewed - no changes required Xiomy Goldberg social history E&M [facility]: [facility] Status: Smoking History: Collin gamez is a former smoker. Laureano Delgado social history reviewed E&M revi ewed - no changes required Nasima Watson MD number of years as a smoker 42 a Tereza [place] smoking, date started 1977 Cather ine Mitch smoking history, tot al pack/year 44 Tereza [place] smoking history, tot al pack/day 1/2 Tereza Mitch cigarette use yes Tereza [place] smoking status Former smoker Marge Quoc nielson NP smoking history, tot al pack/year 44 Azul Albarado social history E&M Ethnicity: Ca asian M arital Status: Smoking History: Collin gamez currently smokes every day. P franco has been counseled to quit. Nasima Watson MD social history reviewed E&M revi ewed - no changes required Nasima Watson MD smoking/tobacco cess ation, patient education and counseling yes Adri Keller number of years as a smoker 42 a Adri Keller smoking, date started 1977 Adri Keller smoking history, tot al pack/year 39 Adri Keller smoking history, tot al pack/day 1/2 Adri Keller cigarette use yes Adri Keller smoking status Current every da y smoker Adri Keller social history E&M Ethnicity: Ca ucasian M arital Status: Smoking History: P atient currently smokes every day. P atient has been counseled to quit. Nasima Watson MD social history reviewed E&M revi ewed - no changes required Nasima Watson MD smoking/tobacco cess ation, patient education and counseling yes Patricia Gan number of years as a smoker 42 a Patricia Gan smoking, date started 1977 Patricia Shoreer smoking history, tot al pack/year 39 Patricia Shoreer smoking history, tot al pack/day 1/2 Patricia Shoreer cigarette use yes Patricia Noriega bubba smoking status Current every da y smoker Patricia Shoreer social history E&M Ethnicity: Ca ucasian M arital Status: Smoking History: P atient currently smokes every day. P atient has been counseled to quit. Nasima Watson MD social history reviewed E&M revi ewed - no changes required Nasima Watson MD smoking/tobacco cess ation, patient education and counseling yes Erika Duarte number of years as a smoker 41 a Erika Duarte smoking, date started 1977 Cr dean Duarte smoking history, tot al pack/year 38 Erika Duarte smoking history, tot al pack/day 1/2 Erika Duarte cigarette use yes Erika serra smoking status Current every da y smoker Erika Duarte number of years as a smoker 41 a Ronnie Milliganberg social history reviewed E&M revi ewed - no changes required Ronnie Milliganberg smoking/tobacco cess ation, patient education and counseling yes Kathy Chino alcohol use no Kathy Chino smoking, date started 1977 Kathy Chino smoking history, tot al pack/year 38 Kathy Chino smoking history, tot al pack/day 1/2 Kathy Chino cigarette use yes Kathy Chino smoking status Current every da y smoker Kathy Chino smoking/tobacco cess ation, patient education and counseling yes Melida Cooley alcohol use no Melida Paige nson smoking, date started 1977 Sunday Cooley smoking history, tot al pack/year 38 Melida Floresenson smoking history, tot al pack/day 1/2 Melida Cooley cigarette use yes Melida Flores enson smoking status Current every da y smoker Melida Cooley number of grandchildren Nasima Watson MD social history reviewed E&M revi ewed - no changes required Nasima Watson MD smoking/tobacco cess ation, patient education and counseling yes Melida Cooley alcohol use no Melida Paige nson smoking, date started 1977 KarolinaCarlito Floresenson smoking history, tot al pack/year 38 Melida Cooley smoking history, tot al pack/day 1/2 Melida Cooley cigarette use yes Melida jiménez smoking status Current every da y smoker Melida Cooley social history reviewed E&M revi ewed - no changes required Nasima Watson MD smoking/tobacco cess ation, patient education and counseling yes Patricia Gan alcohol use no Patricia Solis remigioer smoking, date started 1977 Patricia Gan smoking history, tot al pack/day 1/2 Nasima Watson MD cigarette use yes Patricia mac smoking status Current every da y smoker Patricia Gan social history reviewed E&M revi ewed - no changes required Nasima Watson MD social history E&M Ethnicity: [place] [facility] Status: Smoking History: P atient currently smokes every day. P atient has been counseled to quit. Nasima Watson MD smoking/tobacco cess ation, patient education and counseling yes Patricia Gan alcohol use no Patricia Solis lder smoking, date started 1977 Patricia Gan smoking history, tot al pack/year 38 Patricia Gan smoking history, tot al pack/day 1/2 ppd Patricia Gan cigarette use yes Patricia mac smoking status Current every da y smoker Patricia Noriegaiftikhargerry smoking history, tot al pack/year 38 Rosalind Arroyo smoking/tobacco cess ation, patient education and counseling yes Nasima Watson MD social history E&M [facility]nicity: [place] [facility] Status: Smoking History: P atient currently smokes every day. P atient has been counseled to quit. Nasima Watson MD social history reviewed E&M revi ewed - no changes required Nasima Watson MD alcohol use no Patricia Solis gloria smoking status Current every da y smoker Patricia Arriolasteve smoking/tobacco cess ation, patient education and counseling yes Nasima Watson MD smoking, date started 1977 Shanika Watson MD smoking history, tot al pack/day 4 Nasima Watson MD cigarette use yes Nasima Watson MD smoking status Current every da y smoker Nasima Watson MD social history reviewed E&M revi ewed - no changes required Nasima Watson MD social history reviewed E&M revi ewed - no changes required Nasima Watson MD smoking/tobacco cess ation, patient education and counseling yes Rylee Couchann smoking, date started 1977 Marissa dean No smoking history, tot al pack/day 4 Rylee No cigarette use yes Rylee No smoking status Current every da y smoker Rylee No social history E&M Ethnicity: Ca ucasian M arital Status: Smoking History: P franco currently smokes every day. P franco has been counseled to quit. Nasima Watson MD smoking/tobacco cess ation, patient education and counseling yes Nasima Watson MD social history reviewed E&M revi ewed - no changes required Nasima Watson MD smoking, date started 1977 Yesi Jeff smoking history, tot al pack/day 4 Yesi Jeff cigarette use yes Yesi Jeff smoking status Current every da y smoker Yesi Tomer FUNCTIONAL STATUS Date Observation Value Provider HRA, CV Assess/Plan, Angina (inactive) Management Plan continue current therapy Alexa DIAMONDP HRA, CV Assess/Plan, Angina (inactive) Management Plan continue current therapy Alexa Kathe PONY EDGER HRA, CV Assess/Plan, Angina (inactive) Management Plan continue current therapy Nasima Watson MD HRA, CV Assess/Plan, Angina (inactive) Management Plan continue current therapy Marge Lopez NP HRA, CV Assess/Plan, Angina (inactive) Management Plan continue current therapy Nasima Watson MD HRA, CV Assess/Plan, Angina (inactive) Management Plan continue current therapy Vamsi Deshpande HRA, CV Assess/Plan, Angina (inactive) Management Plan continue current therapy Nasima Watson MD HRA, CV Assess/Plan, Angina (inactive) Management Plan continue current therapy Nasima Watson MD HRA, CV Assess/Plan, Angina (inactive) Management Plan continue current therapy Nasima Watson MD HRA, CV Assess/Plan, Angina (inactive) Management Plan continue current therapy Nasima Watson MD HRA, CV Assess/Plan, Angina (inactive) Management Plan continue current therapy Nasima Watson MD HRA, CV Assess/Plan, Angina (inactive) Management Plan continue current therapy Nasima Watson MD FAMILY HISTORY Family Member Condition Full Sister Family History of Hy pertension: Full Sister Family History of Di abetes: Mother Family History of Hy pertension: Mother Family History of Di abetes: INSURANCE PROVIDERS Payer name Policy type / Coverage type [facility] libertarian ID [facility] [id number] ADVANCE DIRECTIVES Name Date DISCUSSED - NO DECISION MADE TREATMENT PLAN Date Name Performer [id number],C,has stopped A chele Toneymiglia PONY EDGER [id number],S,a sx no CP or SOB l ast echo showed normal EF H is updated medication list for this problem includes: Carvedilol 3.125 Mg Tablet (Carvedilol) Lisinopril 5 Mg Tablet (Lisinopril) Clopidogrel 75 Mg Tablet (Clopidogrel) ..... Take 1 tablet by mouth once a day Adult Aspirin Regimen 81 Mg Tablet,delayed Release (dr/ec) (Aspirin) ..... 1 tablet by mouth once a day [facility] [id number],S,c ontinue aspirin plavix and statin [facility] [id number],S, H is updated medication list for this problem includes: Atorvastatin 40 Mg Tablet (Atorvastatin) Fenofibrate 160 Mg Tablet (Fenofibrate) ..... Take 1 tablet by mouth once daily C HOL: 194 (10/13/2017) HDL: 38 (10/13/2017) [facility] [id number],S,d oes not have much feeling in legs. 2+ edema. w ill obtain arterial and venous duplex [facility] [id number],B,s topped midodrine, will monitor pt asx with no complaints of dizziness or lightheadedness B P today: 96/60 P rior BP: 130/80 (09/01/2022) Labs Reviewed: C reat: 0.94 (10/13/2017) C hol: 194 (10/13/2017) HDL: 38 (10/13/2017) His updated medication list for this problem includes: Carvedilol 3.125 Mg Tablet (Carvedilol) Lisinopril 5 Mg Tablet (Lisinopril) Adult Aspirin Regimen 81 Mg Tablet,delayed Release (dr/ec) (Aspirin) ..... 1 tablet by mouth once a day [facility] [id number],S,h ad tip of left greater toe amputated H is updated medication list for this problem includes: Jardiance 10 Mg Tablet (Empagliflozin) ..... Take 1 tablet by mouth once daily instead of farxiga Lisinopril 5 Mg Tablet (Lisinopril) Adult Aspirin Regimen 81 Mg Tablet,delayed Release (dr/ec) (Aspirin) ..... 1 tablet by mouth once a day Vane Bridges U-100 Insulin 100 Unit/ml (3 Ml) Insulin Pen (Insulin glargine) ..... Inject 60 unit subcutaneously once a day [facility] [id number],S,order sleep s deni [facility] [id number],C,l ifestyle modification encouraged Xiomy Garciamary [id number],C,W ill update HgbA1C as needs tight diabetic control in setting of known CAD T he following medications were removed from the medication list: Glimepiride 2 Mg Tablet (Glimepiride) ..... Take 1 tablet by mouth in the morning His updated medication list for this problem includes: Lisinopril 5 Mg Tablet (Lisinopril) Jardiance 10 Mg Tablet (Empagliflozin) ..... Take 1 tablet by mouth once a day take instead of [facility] Adult Aspirin Regimen 81 Mg Tablet,delayed Release (dr/ec) (Aspirin) ..... 1 tablet by mouth once a day Vane Bridges U-100 Insulin 100 Unit/ml (3 Ml) Insulin Pen (Insulin glargine) ..... Inject 60 unit subcutaneously once a day [facility] [id number],C,on asa and st atin [facility] [id number],C,o n statin therapy. Will update lipids H is updated medication list for this problem includes: Atorvastatin 40 Mg Tablet (Atorvastatin) Fenofibrate 160 Mg Tablet (Fenofibrate) ..... Take 1 tablet by mouth once daily [facility] [id number],C,B lood pressure well controlled. Will continue present medication regimen H is updated medication list for this problem includes: Carvedilol 3.125 Mg Tablet (Carvedilol) Lisinopril 5 Mg Tablet (Lisinopril) Adult Aspirin Regimen 81 Mg Tablet,delayed Release (dr/ec) (Aspirin) ..... 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 He remains asymptomatic. Echo today showed normal EF. Did have some findings concerning for amyloidosis on echo. Will do further lab testing. H is updated medication list for this problem includes: Carvedilol 3.125 Mg Tablet (Carvedilol) Lisinopril 5 Mg Tablet (Lisinopril) Clopidogrel 75 Mg Tablet (Clopidogrel) ..... Take 1 tablet by mouth once a day Adult Aspirin Regimen 81 Mg Tablet,delayed Release (dr/ec) (Aspirin) ..... 1 tablet by mouth once a day Orders: 9 9214 MOD 30-39min (CPT-31915) C OMPREHENSIVE METABOLIC PANEL, W/EGFR (64187) L IPID PANEL (7600) H EMOGLOBIN A1c (496) M icroalb/Creatinine Urine, Random (6517) L ipoprotein (a) (972141) U PEP (399108) S PEP (437535) Alexa Ventimiglalisa [facility] [id number],C, F eddie with neurology. Continues on Plavix Xiomy Goldberg [id number],C, B P 96/61. Pt is asymptomatic. Carvedilol and Lisinopril have been reduced, according to pharmacy records. Unkown if patient remains on midodrine. Will continue current medications as he is asymptomatic at this time. Xiomy Goldberg [id number],S, O n replacement therapy. Nasima Watson MD [id number],S, p er PCP Nasima Watson [place] [id number],S, W eight loss encouraged Nasima Watson MD [id number],C, R eportedly has stopped smoking. Nasima Watson MD [id number],C, S witched to atorvastatin. Nasima Watson MD [id number],C, N o SOB Nasima Watson MD [id number],C, C hest pain free. Nasima Watson MD [id number],B,Weight loss e ncouraged Marge Lopez EFREN [id number],S,per PCP Gael Lopez EFREN [id number],S, H is updated medication list for this problem includes: Pravastatin 80 Mg Tablet (Pravastatin) ..... Take 1 tablet by mouth every night Fenofibrate 160 Mg Tablet (Fenofibrate) ..... 1 tablet by mouth once a day Marge Lopez EFREN [id number],S, H is updated medication list for this problem includes: Carvedilol 3.125 Mg Tablet (Carvedilol) ..... Take 1 tablet by mouth twice a day Adult Aspirin Regimen 81 Mg Tablet,delayed Release (dr/ec) (Aspirin) ..... 1 tablet by mouth once a day Marge Lopez EFREN [id number],B,s /p CABG 4v 04/2021. Doing well. Increasing activity. No further chest pain. His updated medication list for this problem includes: Carvedilol 3.125 Mg Tablet (Carvedilol) ..... Take 1 tablet by mouth twice a day Clopidogrel 75 Mg Tablet (Clopidogrel) ..... Take 1 tablet by mouth once a day Adult Aspirin Regimen 81 Mg Tablet,delayed Release (dr/ec) (Aspirin) ..... 1 tablet by mouth once a day Marge Lopez EFREN [id number],C,S MOENGLY ENCOURAGED TO STOP SMOKING; SMOKING CESSATION TECHNIQUES DISCUSSED. Tamie Carrillo [id number],C,W eight loss advised Tamie Carrillo [id number],C,C ontinues on Pravastatin. Tamie Carrillo [id number],C,R ecent labs showed glucose of 337 and triglycerides of 274. I strongly encouraged him to remove all sugary drinks and foods from his diet. Start on Jardiance. Tamie Carrillo [id number],C,BP control is satisfactory. Tamie Carrillo [id number],C,C hest pain free. Effort tolerance remains stable. Continues on Aspirin and Effient. Tamie Carrillo [id number],C,Weight loss a dvised Vamsi Deshpande [id number],C,S TRONGLY ENCOURAGED TO STOP SMOKING; SMOKING CESSATION TECHNIQUES DISCUSSED. Vamsi Deshpande [id number],C,C ontinues on Glimepiride and Basaglar. He would benefit from A1c if insurance allows. Reduced intake of carbohydrates and sugars advised. Vamsi Wise [id number],C,C ontinues on Pravastatin and Fenofibrate. We aim for LDL < 70. He was unable to tolerate Lipitor due to nausea. He would benefit from a lipid panel if insurance allows. Vamsi Deshpande [id number],C,B lood pressure control is satisfactory. Vamsi Wise [id number],C,C hest pain free. Effort tolerance remains stable. Continues on Aspirin and Effient. Vamsi Dc [id number],C,Weight loss a dvised Vamsi Wise [id number],C,S TRONGLY ENCOURAGED TO STOP SMOKING; SMOKING CESSATION TECHNIQUES DISCUSSED. Vamsi [id number],C,O n replacement therapy. Will give order for Vitamin D level. Vamsi [id number],C,C ontinues on Glimepiride and Basaglar. Will give order for A1c. Reduced intake of carbohydrates and sugars advised. Vamsi Frandy [id number],C,C ontinues on Pravastatin and Fenofibrate. We aim for LDL < 70. Will give order for lipid panel. He was unable to tolerate Lipitor due to nausea. Vamsi Deshpande [id number],C,B lood pressure control is satisfactory. Vamsi Deshpande [id number],C,C hest pain free. Effort tolerance remains stable. Continues on Aspirin and Effient. Vamsi Deshpande [id number],C,B lood pressure control is satisfactory. Nasima Watson MD [id number],C,S cristina advised to stop smoking. Nasima Watson MD [id number],C,H e was unable to afford Levemir thus he is now on Novolin 70/30 60 units at night. Blood sugars are running between 130's-160's. Will add Glimepiride 2mg in the morning. He will continue to monitor his blood sugars. Nasima Watson MD [id number],C,W ill change to Atorvastatin 80mg daily as LDL last year was 96 on Pravachol 80mg daily. We aim for an LDL less than 70. Nasima Watson MD [id number],C,R isk factors of CAD, DM and tobacco abuse. Will arrange PRETTY's. Nasima Watson MD [id number],C,C hest pain free. Effort tolerance remains stable. Continues on Aspirin and Effient. Will schedule an echocardiogram to assess his EF, as his last echo was in 2011. Nasima Watson MD [id number],C,S CRISTINA ENCOURAGED TO STOP SMOKING; SMOKING CESSATION TECHNIQUES DISCUSSED. Nasima Watson MD [id number],C,L DL on labs today is 96. His pravastatin was changed to atorvastatin and fenofibrate was added to reach LDL goal of less than 70. We will repeat lipid panel in 8 weeks, and if LDL remains elevated, will add PCSK9 inhibitor. Nasima Watson MD [id number],C,On replacemen t therapy. Nasima Watson MD [id number],C,U ncontrolled with recent HbA1c of 10. His blood sugars range from 190-250. Levemir has been changed to 30 units in the morning and 50 units in the evening. He will continue to monitor his blood sugars and we will adjust the dose accordingly. Nasima Watson MD [id number],C,B lood pressure control is satisfactory. Continues Coreg and lisinopril. Nasima Watson MD [id number],C,C hest pain free. Effort tolerance somewhat limited by fatigue. Continues aspirin and Effient. Nasima Watson MD [id number],C,LDL on labs t fito is 96. Nasima Watson MD [id number],C,C ontinues on Fenofibrate and Pravastatin. Nasima Watson MD [id number],C,B lood pressure control is satisfactory. Nasima Watson MD [id number],C,C hest pain free. Effort tolerance stable. Continues ASA and Effient. Nasima Watson MD [id number],C,C hest pain free. Continues on ASA/Effient as before. His HR is in the 80s. The dose of Coreg has been increased to 12.5mg BID. Nasima Watson MD [id number],W,T he blood sugar was 380mg. His HgA1c was 13.6%. I've changed his Lantus to 30 units subq in the morning and 40 units subq in the evening. He's been advised not to drink sodas and instead drink water. I've advised him against drinking sugary tea. Nasima Watson MD [id number],C,C ontinues on Fenofibrate and Pravastatin. Nasima Watson MD [id number],C,S TRONGLY ENCOURAGED TO STOP SMOKING; SMOKING CESSATION TECHNIQUES DISCUSSED. Nasima Watson MD [id number],C,B lood pressure control is satisfactory. Nasima Watson MD [id number],C,S TRONGLY ENCOURAGED TO STOP SMOKING; SMOKING CESSATION TECHNIQUES DISCUSSED. Nasima Watson MD [id number],C,D iamiketes remains uncontrolled. Will check his HgA1c. If elevated, his dose of insulin will be adjusted. He also has been to comply with a reduced-carbohydrate and high-fiber diet. Nasima Watson MD [id number],C,C hest pain free. Continues on ASA/Effient. Nasima Watson MD [id number],S,C hest pain free. Continues on aspirin. Nasima Watson MD [id number],S,On Lantus and Glimepiride. Nasima Watson MD [id number],S,O n pravastatin and fenofibrate. He can resume his fish oil. Nasima Watson MD [id number],S,B lood pressure control is satisfactory. Nasima Watson MD [id number],S,S trongly advised to quit smoking. Nasima Watson MD [id number],S,Weight loss a dvised. Nasima Watson MD [id number],N, Nasima dupree MD [id number],N, Nasima dupree MD [id number],N, H is updated medication list for this problem includes: Aspirin Tabs (Aspirin tabs) ..... 325mg daily Lisinopril 10 Mg Tabs (Lisinopril) ..... 1 tab daily Carvedilol 6.25 Mg Tabs (Carvedilol) ..... 1 tab twice daily Nasima Watson MD [id number],N, Nasima dupree MD [id number],N, Nasima dupree MD Cardiology:has stopped Alexa christianson [facility] Cardiology:asx no CP or SOB l ast echo showed normal EF H is updated medication list for this problem includes: Carvedilol 3.125 Mg Tablet (Carvedilol) Lisinopril 5 Mg Tablet (Lisinopril) Clopidogrel 75 Mg Tablet (Clopidogrel) ..... Take 1 tablet by mouth once a day Adult Aspirin Regimen 81 Mg Tablet,delayed Release (dr/ec) (Aspirin) ..... 1 tablet by mouth once a day [facility] Cardiology:continue aspirin plav ix and statin [facility] Cardiology: H is updated medication list for this problem includes: Atorvastatin 40 Mg Tablet (Atorvastatin) Fenofibrate 160 Mg Tablet (Fenofibrate) ..... Take 1 tablet by mouth once daily C HOL: 194 (10/13/2017) HDL: 38 (10/13/2017) [facility] Cardiology:does not have much feeling in legs. 2+ edema. w ill obtain arterial and venous duplex [facility] Cardiology:stopped m idodrine, will monitor pt asx with no complaints of dizziness or lightheadedness B P today: 96/60 P rior BP: 130/80 (09/01/2022) Labs Reviewed: C reat: 0.94 (10/13/2017) C hol: 194 (10/13/2017) HDL: 38 (10/13/2017) His updated medication list for this problem includes: Carvedilol 3.125 Mg Tablet (Carvedilol) Lisinopril 5 Mg Tablet (Lisinopril) Adult Aspirin Regimen 81 Mg Tablet,delayed Release (dr/ec) (Aspirin) ..... 1 tablet by mouth once a day [facility] Cardiology:had tip o f left greater toe amputated H is updated medication list for this problem includes: Jardiance 10 Mg Tablet (Empagliflozin) ..... Take 1 tablet by mouth once daily instead of farxiga Lisinopril 5 Mg Tablet (Lisinopril) Adult Aspirin Regimen 81 Mg Tablet,delayed Release (dr/ec) (Aspirin) ..... 1 tablet by mouth once a day Basaglar Kwikpen U-100 Insulin 100 Unit/ml (3 Ml) Insulin Pen (Insulin glargine) ..... Inject 60 unit subcutaneously once a day [facility] Cardiology:order sleep study [facility] Cardiology:lifestyle modificatio bipin Goldberg Cardiology:Will upda te HgbA1C as needs tight diabetic control in setting of known CAD T he following medications were removed from the medication list: Glimepiride 2 Mg Tablet (Glimepiride) ..... Take 1 tablet by mouth in the morning His updated medication list for this problem includes: Lisinopril 5 Mg Tablet (Lisinopril) Jardiance 10 Mg Tablet (Empagliflozin) ..... Take 1 tablet by mouth once a day take instead of farxiga Adult Aspirin Regimen 81 Mg Tablet,delayed Release (dr/ec) (Aspirin) ..... 1 tablet by mouth once a day Basaglar Kwikpen U-100 Insulin 100 Unit/ml (3 Ml) Insulin Pen (Insulin glargine) ..... Inject 60 unit subcutaneously once a day [facility] Cardiology:on asa and statin [facility] Cardiology:on statin therapy. Will update lipids H is updated medication list for this problem includes: Atorvastatin 40 Mg Tablet (Atorvastatin) Fenofibrate 160 Mg Tablet (Fenofibrate) ..... Take 1 tablet by mouth once daily [facility] Cardiology:Blood pre ssure well controlled. Will continue present medication regimen H is updated medication list for this problem includes: Carvedilol 3.125 Mg Tablet (Carvedilol) Lisinopril 5 Mg Tablet (Lisinopril) Adult Aspirin Regimen 81 Mg Tablet,delayed Release (dr/ec) (Aspirin) ..... 1 tablet by mouth once a day Alexa Archuleta [facility] Cardiology:With hist ory of CABG x 4 04/2021. He remains asymptomatic. Echo today showed normal EF. Did have some findings concerning for amyloidosis on echo. Will do further lab testing. H is updated medication list for this problem includes: Carvedilol 3.125 Mg Tablet (Carvedilol) Lisinopril 5 Mg Tablet (Lisinopril) Clopidogrel 75 Mg Tablet (Clopidogrel) ..... Take 1 tablet by mouth once a day Adult Aspirin Regimen 81 Mg Tablet,delayed Release (dr/ec) (Aspirin) ..... 1 tablet by mouth once a day Orders: 9 9214 MOD 30-39min (CPT-71294) C OMPREHENSIVE METABOLIC PANEL, W/EGFR (19696) L IPID PANEL (7600) H EMOGLOBIN A1c (496) M icroalb/Creatinine Urine, Random (6517) L ipoprotein (a) (425903) U PEP (508153) S PEP (244248) Alexaronaldo Fitzgeraldrobbyalisa [facility] Cardiology: F eddie with neurology. Continues on Plavix Xiomy Goldberg Cardiology: B P 96/61. Pt is asymptomatic. Carvedilol and Lisinopril have been reduced, according to pharmacy records. Unkown if patient remains on midodrine. Will continue current medications as he is asymptomatic at this time. Xiomy Goldberg Cardiology: O n replacement therapy. Nasima Watson MD Cardiology: p er PCP Nasima Watson MD Cardiology: W eight loss encouraged Nasima Watson MD Cardiology: R eportedly has stopped smoking. Nasima Watson MD Cardiology: S witched to atorvastatin. Nasima Watson MD Cardiology: N o SOB Nasima Watsno MD Cardiology: C hest pain free. Nasima Watson MD Cardiology:Weight loss encourage d Marge Lopez NP Cardiology:per PCP Marge Miller in [employer] Cardiology: H is updated medication list for this problem includes: Pravastatin 80 Mg Tablet (Pravastatin) ..... Take 1 tablet by mouth every night Fenofibrate 160 Mg Tablet (Fenofibrate) ..... 1 tablet by mouth once a day Marge Lopez NP Cardiology: H is updated medication list for this problem includes: Carvedilol 3.125 Mg Tablet (Carvedilol) ..... Take 1 tablet by mouth twice a day Adult Aspirin Regimen 81 Mg Tablet,delayed Release (dr/ec) (Aspirin) ..... 1 tablet by mouth once a day Marge John SCHWARTZ Cardiology:s/p CABG 4v 04/2021. Doing well. Increasing activity. No further chest pain. His updated medication list for this problem includes: Carvedilol 3.125 Mg Tablet (Carvedilol) ..... Take 1 tablet by mouth twice a day Clopidogrel 75 Mg Tablet (Clopidogrel) ..... Take 1 tablet by mouth once a day Adult Aspirin Regimen 81 Mg Tablet,delayed Release (dr/ec) (Aspirin) ..... 1 tablet by mouth once a day Marge John SCHWARTZ Cardiology:STRONGLY ENCOURAGED TO STOP SMOKING; SMOKING CESSATION TECHNIQUES DISCUSSED. Tamie Carrillo Cardiology:Weight lo ss advised Tamie Carrillo Cardiology:Continues on Pravastatin. Tamie Carrillo Cardiology:Recent la bs showed glucose of 337 and triglycerides of 274. I strongly encouraged him to remove all sugary drinks and foods from his diet. Start on Jardiance. Tamie Carrillo Cardiology:BP control is satisfa ctory. Tamie Carrillo Cardiology:Chest mikhail n free. Effort tolerance remains stable. Continues on Aspirin and Effient. Tamie Carrillo Cardiology Follow up :Weight los s advised Vamsi Deshpande Cardiology Follow up :STRONGLY ENCOURAGED TO STOP SMOKING; SMOKING CESSATION TECHNIQUES DISCUSSED. Cardiology Follow up :Continues on Glimepiride and Basaglar. He would benefit from A1c if insurance allows. Reduced intake of carbohydrates and sugars advised. Cardiology Follow up :Continues on Pravastatin and Fenofibrate. We aim for LDL < 70. He was unable to tolerate Lipitor due to nausea. He would benefit from a lipid panel if insurance allows. Cardiology Follow up :Blood pressure control is satisfactory. Cardiology Follow up :Chest pain free. Effort tolerance remains stable. Continues on Aspirin and Effient. Cardiology follow up :Weight los s advised Cardiology follow up :STRONGLY ENCOURAGED TO STOP SMOKING; SMOKING CESSATION TECHNIQUES DISCUSSED. Cardiology follow up :On replacement therapy. Will give order for Vitamin D level. Cardiology follow up :Continues on Glimepiride and Basaglar. Will give order for A1c. Reduced intake of carbohydrates and sugars advised. Cardiology follow up :Continues on Pravastatin and Fenofibrate. We aim for LDL < 70. Will give order for lipid panel. He was unable to tolerate Lipitor due to nausea. Cardiology follow up :Blood pressure control is satisfactory. Cardiology follow up :Chest pain free. Effort tolerance remains stable. Continues on Aspirin and Effient. Cardiology follow up :Blood pressure control is satisfactory. Nasima Watson MD Cardiology follow up :Strongly advised to stop smoking. Nasima Watson MD Cardiology follow up :He was unable to afford Levemir thus he is now on Novolin 70/30 60 units at night. Blood sugars are running between 130's-160's. Will add Glimepiride 2mg in the morning. He will continue to monitor his blood sugars. Nasima Watson MD Cardiology follow up :Will change to Atorvastatin 80mg daily as LDL last year was 96 on Pravachol 80mg daily. We aim for an LDL less than 70. Nasima Watson MD Cardiology follow up :Risk factors of CAD, DM and tobacco abuse. Will arrange PRETTY's. Nasima Watson MD Cardiology follow up :Chest pain free. Effort tolerance remains stable. Continues on Aspirin and Effient. Will schedule an echocardiogram to assess his EF, as his last echo was in 2011. Nasima Watson MD Cardiology:STRONGLY ENCOURAGED TO STOP SMOKING; SMOKING CESSATION TECHNIQUES DISCUSSED. Nasima Watson MD Cardiology:LDL on la bs today is 96. His pravastatin was changed to atorvastatin and fenofibrate was added to reach LDL goal of less than 70. We will repeat lipid panel in 8 weeks, and if LDL remains elevated, will add PCSK9 inhibitor. Nasima Watson MD Cardiology:On replacement therap y. Nasima Watson MD Cardiology:Uncontrol led with recent HbA1c of 10. His blood sugars range from 190-250. Levemir has been changed to 30 units in the morning and 50 units in the evening. He will continue to monitor his blood sugars and we will adjust the dose accordingly. Nasima Watson MD Cardiology:Blood pre ssure control is satisfactory. Continues Coreg and lisinopril. Nasima Watson MD Cardiology:Chest mikhail n free. Effort tolerance somewhat limited by fatigue. Continues aspirin and Effient. Nasima Watson MD Cardiology:LDL on labs today is 96. Nasima Watson MD Cardiology:Continues on Fenofibrate and Pravastatin. Nasima Watson MD Cardiology:Blood pre ssure control is satisfactory. Nasima Watson MD Cardiology:Chest mikhail n free. Effort tolerance stable. Continues ASA and Effient. Nasima Watson MD Cardiology Follow up :Chest pain free. Continues on ASA/Effient as before. His HR is in the 80s. The dose of Coreg has been increased to 12.5mg BID. Nasima Watson MD Cardiology Follow up :The blood sugar was 380mg. His HgA1c was 13.6%. I've changed his Lantus to 30 units subq in the morning and 40 units subq in the evening. He's been advised not to drink sodas and instead drink water. I've advised him against drinking sugary tea. Nasima Watson MD Cardiology Follow up :Continues on Fenofibrate and Pravastatin. Nasima Watson MD Cardiology Follow up :STRONGLY ENCOURAGED TO STOP SMOKING; SMOKING CESSATION TECHNIQUES DISCUSSED. Nasima Watson MD Cardiology Follow up :Blood pressure control is satisfactory. Nasima Watson MD Cardiology Follow up :STRONGLY ENCOURAGED TO STOP SMOKING; SMOKING CESSATION TECHNIQUES DISCUSSED. Nasima Watson MD Cardiology Follow up :Diabetes remains uncontrolled. Will check his HgA1c. If elevated, his dose of insulin will be adjusted. He also has been to comply with a reduced-carbohydrate and high-fiber diet. Nasima Watson MD Cardiology Follow up :Chest pain free. Continues on ASA/Effient. Nasima Watson MD Cardiology Follow up :Chest pain free. Continues on aspirin. Nasima Watson MD Cardiology Follow up :On Lantus and Glimepiride. Nasima Watson MD Cardiology Follow up :On pravastatin and fenofibrate. He can resume his fish oil. Nasima Watson MD Cardiology Follow up :Blood pressure control is satisfactory. Nasima Watson MD Cardiology Follow up :Strongly advised to quit smoking. Nasima Watson MD Cardiology Follow up :Weight los s advised. Nasima Watson MD New Pt Nasima Borja New Pt Nasima Borja New Pt: H is updated medication list for this problem includes: Aspirin Tabs (Aspirin tabs) ..... 325mg daily Lisinopril 10 Mg Tabs (Lisinopril) ..... 1 tab daily Carvedilol 6.25 Mg Tabs (Carvedilol) ..... 1 tab twice daily Nasima Watson MD New Pt Nasima Borja New Pt Nasima Borja Date Name CRP, high sensitivit y PROBNP, N TERMINAL Venous Doppler Bilat eral LE - Reflux Sleep Study Home SPEP UPEP Arterial Duplex Bi-L ower EX SPEP UPEP Lipoprotein (a) Microalb/Creatinine Urine, Random HEMOGLOBIN A1c LIPID PANEL COMPREHENSIVE METABO LIC PANEL, W/EGFR Complete Echo Stress Regadenoson CBC (H/H, RBC, INDIC ES, WBC, PLT) PROBNP, N TERMINAL LIPID PANEL COMPREHENSIVE METABO LIC PANEL, W/EGFR Vitamin D, 25-Hydrox y CBC (H/H, RBC, INDIC ES, WBC, PLT) HEMOGLOBIN A1c TSH, free T4, total T3 LIPID PANEL COMPREHENSIVE METABO LIC PANEL, W/EGFR Arterial Duplex Bi-L ower EX Complete Echo HEMOGLOBIN A1c TSH, 3RD GENERATION W/REFLEX TO FT4 Vitamin D, 25-Hydrox y URINALYSIS, RANDOM, MICROALB/CREATININE CBC (INCLUDES DIFF/P LT) LIPID PANEL COMPREHENSIVE METABO LIC PANEL, W/EGFR HEMOGLOBIN A1c COMPREHENSIVE METABO LIC PANEL W/EGFR CBC (INCLUDES DIFF/P LT) BASIC METABOLIC PANE L W/EGFR B TYPE NATRIURETIC P EPTIDE (BNP) LIPID PANEL HEMOGLOBIN A1c HEMOGLOBIN A1c LIPID PANEL B TYPE NATRIURETIC P EPTIDE (BNP) BASIC METABOLIC PANE L W/EGFR CBC (INCLUDES DIFF/P LT) DLCO Order - [id number] FRC Order - [id number] FVC Order - [id number] Full PFT Full PFT HISTORY OF PROCEDURES Procedure Date Procedure Name Provider Procedure Notes S tatus EKG Nasima Watson MD complet ed EKG Nasima Watson MD complet ed EKG Nasima Watson MD complet ed EKG Nasima Watson MD complet ed EKG Nasima Watson MD complet ed EKG Nasima Watson MD complet ed EKG Nasima Watson MD complet ed EKG Nasima Watson MD complet ed SNOMED-CT: 890634864 Smoking Cessation Counseling Nasima Watson MD completed SNOMED-CT: 05503243 Physical Exam, Performed: Pulse Exam of Foot Nasima Watson MD completed KRYSTA Watson MD complet ed SNOMED-CT: 735564019 767721 Current Medications Documented Nasima Watson MD completed SNOMED-CT: 94561136 Physical Exam, Performed: Pulse Exam of Foot Nasima Watson MD completed SNOMED-CT: 087440154 Smoking Cessation Counseling Nasima Watson MD completed KRYSTA Watson MD complet ed SNOMED-CT: 896080618 692329 Current Medications Documented Nasima Watson MD completed SNOMED-CT: 092425553 Smoking Cessation Counseling Nasima Watson MD completed SNOMED-CT: 88331435 Physical Exam, Performed: Pulse Exam of Foot Nasima Watson MD completed EKG Nasima Watson MD complet ed SNOMED-CT: 444236695 115589 Current Medications Documented Nasima Watson MD completed EKG Nasima Watson MD complet ed BLOOD COUNT HEMOGLOBIN Nasima Watson MD completed EKG Nasima Watson MD complet ed EKG Nasima Watson MD complet ed
--- OUTSIDE RECORDS SUMMARY | 2024-09-27 18:39 | XMS_ITS | Clinical Summary ---
Author Organization [facility] [address] Address [address] [place] [address] Care Team Providers Care Manufacturing Plant Manager Name Role Phone Unknown, Notinfile Primary Care Provider Unavail able Salbador Granados MD Unavailable [phone] Rubin Clayton MD Unavailable Miscellaneous, Not In File Unavailable Unava ilable Humphrey Manriquez MD Unavailable [phone] Allergies Active Allergy Reactions Criticality Noted Date [...] (05/01/2021): Added automatically from request for surgery [id number] Cerebrovascular accident (CVA) Surgical History Surgery Date Site/Laterality Comments CARDIAC STENT PLACEMENT CORONARY ARTERY BYPASS GRAFT 05/20/2021 - 06/19/2021 Four-vessel [facility] Medical History Medical History Date Comments [...] Counseling Given: Yes Comments:Stop smoking 04/2021 after [place] Alcohol Use Standard Drinks/Week Comments No 0 [...] on file 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 Gender Identity Not on file Sexual Orientation Not on file Obstetrics History Last Filed Vital Signs Vital Sign Reading Time Taken Comments Blood Pressure 129/84 09/15/2021 12:18 PM CDT Pulse 80 09/15/2021 12:18 PM CDT Temperature 36.6 C (97.8 F) 08/21/2021 6:00 AM SUPPLY TEACHER Respiratory Rate 14 09/15/2021 12:18 PM CDT Oxygen Saturation 97% 09/15/2021 12:18 PM CDT Inhaled Oxygen Concentration - - Weight 84.8 kg (187 lb) 09/15/2021 12:18 PM CDT Height 167.6 cm (5' 6 ) 09/15/2021 12:18 PM CDT Body Mass Index 30.18 09/15/2021 12:18 PM CDT Plan of Treatment Not on file Medical Devices Implanted Type Area Housing Inspector Device Identifier Shelf Expiration Date Model / Serial / Lot Vibrynt [id number] Sensation Plus Statlock 8fr 17.4mm .027in 6in 258mm Fiber Optic - [id number] Implanted:Qty: 1 on 05/01/2021 by Rubin Clayton MD at [facility] 08/14/2023 [id number] / / [id number] Insurance [facility] PLAN HEIDY ALVAREZ [id number] Advance Directives For more information, please contact: [phone] * Full Code (Latest Code Status on File) Date Activated Date Inactivated Comments 08/19/2021 4:45 PM 08/21/2021 7:26 PM * Full Code Date Activated Date Inactivated Comments 07/29/2021 4:33 AM 07/30/2021 9:59 PM * Full Code Date Activated Date Inactivated Comments 05/09/2021 11:04 AM 06/03/2021 7:39 PM * Full Code Date Activated Date Inactivated Comments 05/01/2021 10:48 PM 05/08/2021 10:11 AM Care Teams Manufacturing Plant Manager Relationship Specialty Start Date End Date Unknown, Notinfile PCP - General 05/01/21 [place] [address] [place] [address] Surgeon Cardiothoracic Surgery 05/01/21 [place] [address] [address] [place] [address] Referring Physician Cardiovascular Disease 06/03/21 Miscellaneous, Not In File 07/30/21 Humphrey Manriquez MD [address] [facility] [address] [place] [address] Consulting Physician Neurology 07/30/21
[2024-09-27 19:30] VITALS: BP 146/75; PULSE 83; RESP 18; TEMP 36.8; O2SAT 98
--- NOTE | 2024-09-27 22:19 | PC.NURSE ---
1900 This RN did not lay eyes on this patient-initial assessment done by covering RN while this RN at lunch
--- NOTE | 2024-09-27 22:25 | PC.NURSE ---
2130 Patient and family placed in Family services room due to patient inappropriately grabbing at other patrons in ED waiting room
--- NOTE | 2024-09-27 22:27 | PC.NURSE ---
2200 Family reporting that patient is becoming aggressive towards them while in family waiting room and that patient is hallucinating , son now reporting that patient humberto acted like this the last time he had a stroke . Update given to Elena POE-charge
--- NOTE | 2024-09-27 22:30 | PC.NURSE ---
Patient ambulated back to room 8 escorted by Bere POE-refused to sit in wheelchair. Family with patient
[2024-09-27 22:36] VITALS: BP 128/47; PULSE 79; RESP 16; O2SAT 99
--- NOTE | 2024-09-27 22:39 | PC.NURSE ---
This RN spoke to son in family WR area to get more information about pt. Pt son states pt was at home w/ all day. Pt son came home around 1800 and noticed pt was not acting right . Pt son states pt does not leave bedroom so she did not witness LKW, pt son did not witness LKW, and pt had no other family present. PT son states pt was sitting on the couch, got up and fell in the kitchen, and hit his head then brought him here. This RN did not triage this pt upon arrival. Pt getting agitated w/ staff and other pts in waiting room.
--- NOTE | 2024-09-27 22:42 | ECG_ITS ---
Test Date: 2024-09-28 02:09:28 Measurements Intervals [place] Rate: 109 P: 72 NV: 220 QRS: -44 QRSD: 97 T: 89 QT: 325 QTc: 438 Interpretive Statements SINUS TACHYCARDIA WITH FIRST DEGREE AV BLOCK LEFT AXIS DEVIATION EXTENSIVE ANTERIOR INFARCT, AGE INDETERMINATE BORDERLINE ST-T WAVE ABNORMALITY- HIGH LATERAL LEADS BASELINE ARTIFACT- I, II, III, AVR, V1-V4 ABNORMAL ECG Compared to ECG 08/03/2024 09:18:26 HEART RATE HAS INCREASED Electronically Signed On 09-28-2024 08:20:21 CDT by Cole Roland D.O.
--- OUTSIDE RECORDS SUMMARY | 2024-09-27 22:44 | XMS_ITS | Clinical Summary ---
Author Organization [facility] Address [address] [place] [address] Care Team Providers Care Manager Strategy & Account Name Role Phone Unavailable Primary Care Provider Unavailabl e Source Comments [facility],non-owned Affiliates and Associated Physician Practices is amultiple site organization consisting of ambulatory clinics and hospital sitesin [place], [place], [place] and [place]. This disclosure is being madepursuant to the Care Everywhere program and may not contain all information available regarding this patient. Last updated 18.[facility] Allergies Active Allergy Reactions Criticality Noted Date [...] 11.5(H) <=5.6 % 09/03/2021 10:28 AM CDT [facility] Estimated Average Glucose 283 mg/dL 09/03/2021 10:28 AM CDT [facility] Comment: HbA1c Interpretation: Normal : < 5.7% Pre-diabetes: 5.7-6.4% Diabetes: Equal to or greater than 6.5% Test results diagnostic of diabetes should be repeated for confirmation. Treatment target values recommended by ADA and other clinical organizations should be used to evaluate metabolic control in patients. Reference: [place] Diabetes Association, Standards of Care in Diabetes [...] Palomino MD LAB - CHEMISTRY ORD ERABLES [facility] [address] [place] [id number], [facility] [phone] * (ABNORMAL) BASIC METABOLIC PANEL (CALCIUM TOTAL) (09/03/2021 2:48 AM CDT) Pathologist [facility] BUN 7 7 - 26 mg/dL 09/03/2021 3:40 AM CDT [facility] Creatinine 0.68(L) 0.71 - 1.16 mg/dL 09/03/2021 3:40 AM CDT [facility] Sodium 138 136 - 145 mmol/L 09/03/2021 3:40 AM CDT [facility] Potassium 3.6 3.5 - 4.5 mmol/L 09/03/2021 3:40 AM CDT [facility] Chloride 107 98 - 107 mmol/L 09/03/2021 3:40 AM [facility] CO2 20(L) 22 - 29 mmol/L 09/03/2021 3:40 AM [facility] Glucose 161(H) 70 - 115 mg/dL 09/03/2021 3:40 AM [facility] Calcium 8.5 8.4 - 10.2 mg/dL 09/03/2021 3:40 AM [facility] Anion Gap 15 8 - 18 09/03/2021 3:40 AM [facility] BUN/Creatinine Ratio 10 7 - 23 09/03/2021 3:40 AM [facility] Osmolality Calculated 287 270 - 300 mOsm/kg 09/03/2021 3:40 AM [facility] eGFR by CKD-EPI >90 >=90 mL/min/1.7 3 m2 09/03/2021 3:40 AM [facility] Blood BLOOD SPECIMEN / Unknown Lab Venipuncture / Unknown 09/03/2021 2:48 AM CDT 09/03/2021 3:04 AM T Jeremy Palomino MD LAB - CHEMISTRY ORD ERABLES [facility] [address] [place] [address], [facility] [phone] from Last 3 Months or Most Recently Relevant to Health Maintenance Advance Directives * Full Code (Latest Code Status on File) Date Activated Date Inactivated Comments 09/01/2021 10:29 PM 09/03/2021 5:42 PM
--- OUTSIDE RECORDS SUMMARY | 2024-09-27 22:44 | XMS_ITS | Referral Summary ---
Author Organization [facility] [address] [facility] Address [address] [place] [address] Care Team Providers Care Junior Analyst Name Role Phone Unknown, Notinfile Primary Care Provider Unavail able Salbador Granados MD Unavailable [phone] Rubin Clayton MD Unavailable Miscellaneous, Not In File Unavailable Unava ilable Humphrey Manriquez MD Unavailable [phone] Allergies Active Allergy Reactions Criticality Noted Date [...] (05/01/2021): Added automatically from request for surgery [id number] Cerebrovascular accident (CVA) Social History Tobacco Use Types Packs/Day Years Used Date Smoking Tobacco: Former Cigarettes 1 40 Smokeless Tobacco: Never Tobacco Cessation:Ready to Q uit: Yes; Counseling Given: Yes Comments:Stop smoking 04/2021 after [place] Alcohol Use Standard Drinks/Week Comments No 0 [...] on file 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 Gender Identity Not on file Sexual Orientation Not on file Last Filed Vital Signs Vital Sign Reading Time Taken Comments Blood Pressure 129/84 09/15/2021 12:18 PM CDT Pulse 80 09/15/2021 12:18 PM CDT Temperature 36.6 C (97.8 F) 08/21/2021 6:00 AM FILTER PRESS PUMPER Respiratory Rate 14 09/15/2021 12:18 PM CDT Oxygen Saturation 97% 09/15/2021 12:18 PM CDT Inhaled Oxygen Concentration - - Weight 84.8 kg (187 lb) 09/15/2021 12:18 PM CDT Height 167.6 cm (5' 6 ) 09/15/2021 12:18 PM CDT Body Mass Index 30.18 09/15/2021 12:18 PM CDT Plan of Treatment Not on file Medical Devices Implanted Type Area Certified Lactation Counselor Device Identifier Shelf Expiration Date Model / Serial / Lot [employer] [id number] Sensation Plus Statlock 8fr 17.4mm .027in 6in 258mm Fiber Optic - [id number] Implanted:Qty: 1 on 05/01/2021 by Rubin Clayton MD at [facility] 08/14/2023 76-01U / / [id number] Insurance PLAN HEIDY ALVAREZ [facility] PLAN Advance Directives For more information, please contact: [phone] * Full Code (Latest Code Status on File) Date Activated Date Inactivated Comments 08/19/2021 4:45 PM 08/21/2021 7:26 PM * Full Code Date Activated Date Inactivated Comments 07/29/2021 4:33 AM 07/30/2021 9:59 PM * Full Code Date Activated Date Inactivated Comments 05/09/2021 11:04 AM 06/03/2021 7:39 PM * Full Code Date Activated Date Inactivated Comments 05/01/2021 10:48 PM 05/08/2021 10:11 AM Care Teams Junior Analyst Relationship Specialty Start Date End Date Unknown, Notinfile PCP - General 05/01/21 [place] [address] [place] [address] Surgeon Cardiothoracic Surgery 05/01/21 [place] [address] [address] [place] [address] Referring Physician Cardiovascular Disease 06/03/21 Miscellaneous, Not In File 07/30/21 Humphrey Manriquez MD [address] [facility] [address] [place] [address] Consulting Physician Neurology 07/30/21
--- OUTSIDE RECORDS SUMMARY | 2024-09-27 22:44 | XMS_ITS | CONTINUITY OF CARE DOCUMENT ---
Author Name darling hastings Address Unknown Organization [facility] Address [address] [place] [address] Phone [phone] Care Team Providers Care Lock Assembler Name Role Phone Walter MEMBRENO, Nasima Unavailable MINA MEMBRENO, RYLEE Rosas Unavailable RYLEE ENRIQUEZ MD Unavailable PROBLEMS Condition Status Date Provider Notes Family [...] Nasima Watson MD Snoring active Alexa Toneymiglalisa PREPARATOR ENCOUNTERS Date Type Provider Location Encounter Diag nosis - In-person encounter Office Visit Nasima Watson MD [place] [facility] Snoring - In-person encounter Office Visit Nasima Watson MD [facility] - In-person encounter Office Visit Nasima Watson MD [facility] CVA - In-person encounter Office Visit Nasima Watson MD [facility] - In-person encounter Office Visit Nasima Watson MD [facility] - In-person encounter Office Visit Nasima Watson MD [facility] - In-person encounter Office Visit Nasima Watson MD [facility] - In-person encounter Office Visit Nasima Watson MD [facility] Claudication - In-person encounter Office Visit Nasima Watson MD [facility] - In-person encounter Office Visit Nasima Watson MD [facility] Vitamin D deficiency - In-person encounter Office Visit Nasima Watson MD [facility] - In-person encounter Office Visit Nasima Watson MD [facility] Diabetes mellitus, type II, uncontrolled, w/vascular compsCAD S/P LAD stent 01/2010 - In-person encounter Office Visit Nasima Watson MD [facility] Family History of Hypertension:Family History of Hypertension: - In-person encounter Office Visit Nasima Watson MD [facility] - In-person encounter Office Visit Nasima Watson MD [facility] HyperlipidemiaShortness of breath - In-person encounter Office Visit Nasima Watson MD [facility] ObesityHTN essentialHyperlipidemiaTobacco abuseDiabetes mellitus, type II, [...] Body Mass Index (Ratio) 25.77 kg/m2 Brit alne Goldberg blood pressure, diastolic 61 mm[Hg] Sa [...] blood pressure, diastolic 77 mm[Hg] Ca therine [place] blood pressure, systolic 119 mm[Hg] Cat herine Mitch oxygen saturation, oximetry 99 % Tereza Mitch respiratory rate E&M 16 /min Catheri ne Mitch pulse rate 98 /min Tereza Mitch weight E&M 193 [lb_av] Tereza Mitch blood pressure, cuff size regular Ca therine [place] height E&M 72 [in_i] Tereza Mitch Body Mass Index (Ratio) 28.45 kg/m2 Murray Carrillo blood pressure, diastolic 75 mm[Hg] Li nkLogic blood pressure, systolic 119 mm[Hg] Coco kLogic blood pressure, resting Yes Omar ty Krishna blood pressure, cuff size regular Kr isty [place] blood pressure, diastolic 75 mm[Hg] Kr isty Krishna blood pressure, systolic 119 mm[Hg] Kri sty Krishna oxygen saturation, oximetry 95 % Adri Krishna respiratory rate E&M 19 /min Adri Krishna pulse rate 77 /min Adri [place] weight E&M 209.8 [lb_av] Adri Haney height [...] Brock anastacionfelder pulse rate 102 /min Patricia Grlatanyanenfe lder weight E&M 209 [lb_av] Patricia Gruenenfe [...] Rylee No weight E&M 250 [lb_av] Rylee No Body Mass Index (Ratio) 33.50 kg/m2 Mary [...] 0-149 High cholesterol, serum 194 mg/dL [facility] [phone]/04 /26 basophil count, absolute 0.1 x10E3/uL [facility] [...] Not Estab. platelet count 372 X10E3/UL [facility] [phone]/04 /26 red blood cell distribution width 13.7 [...] (low-density lipoprotein/high-de nsity lipoprotein) ratio 2.7 RATIO [facility] - lipoprotein, beta, serum, point, quantitative, calculated 106.8 (?) [facility] 0.0 - 100.0 High HDL cholesterol, serum 40.0 mg/dL [facility] 35.0 - 55.0 cholesterol, serum 202.0 mg/dL [facility] 0.0 - 200.0 High triglyceride, serum, fasting 276.0 mg/dL [facility] 0.0 - 150.0 High urea nitrogen/creatinine ratio, serum 12.2 [facility] - Estimated Glomerular Filtration Rate (calc) 93.5 [...] - 20.0 blood glucose, random 327.0 mg/dL [facility] 74.[facility] - 99.0 High red blood cell distribution width, size density 44.1 fL [facility] - immature granulocytes, percentage of total cells, blood 0.4 % [facility] - nucleated red blood cells as percent of blood leukocytes 0.0 % [facility] - red blood cell (erythrocyte) count, per high power field 0.0 10*3/UL [facility] - eosinophils as percent of blood leukocytes [...] famotidine 40 mg tablet active Alexa Ventimiglia PREPARATOR carvedilol 3.125 mg tablet active Nasima Watson MD divalproex 500 mg tablet extended release 24 hr completed - 09/01 Alexa Ventimiglia [facility] lisinopril 5 mg tablet active Nasima Watson MD olanzapine 20 mg tablet active Nasima Watson MD carbamazepine 200 mg tablet active Nasima Watson MD atorvastatin 40 mg tablet active Nasima Watson MD pantoprazole 40 mg tablet,delayed release (DR/EC) completed Take 1 tablet by mouth once daily 12/23 - 09/01 [facility] fenofibrate 160 mg tablet active Take 1 tablet by mouth once daily 10/20 Nasima Watson MD sodium bicarbonate 650 mg tablet completed TAKE 2 TABLETS BY MOUTH TWICE DAILY - 01/06 Nasima Watson MD senna 8.6 mg tablet completed - 09/01 [facility]onaldo [facility] Jardiance 10 mg tablet completed Take 1 [...] IN THE MORNING 01/20 - 09/01 [facility] Jardiance 10 mg tablet completed Take 1 [...] 01/06 Patricia Gan VITAMIN D (ERGOCALCIFEROL ) 58093 UNIT ORAL CAPSULE completed One capsule once [...] as a smoker 42 a Alexa Kathe [facility] smoking, date started 1977 Golva Kathe [facility] smoking history, tot al pack/year 44 Alexa Kathe [facility] smoking history, tot al pack/day 1/2 Alexa Kathe [facility] cigarette use yes Alexa Lia higuera [facility] smoking status Former smoker Alexa lealia [facility] social history reviewed E&M revi ewed - no changes required Alexa Fitzgeraldglalisa [facility] social history E&M Ethnicity: Ca edenasian M arital Status: Smoking History: Collin gamez is a former smoker. Xiomy Goldberg social history reviewed E&M revi ewed - no changes required [facility] use no Alexa jones [facility] number of years as a smoker 41 a Patricia Noriegaelder smoking, date started 1977 Patricia Nroiegaelder smoking history, tot al pack/year 44 Patricia Noriegaelder smoking history, tot al pack/day 1/2 Patricia Patelnfelder cigarette use yes Patricia Noriega elder smoking status Former smoker Patricia yuelder social history reviewed E&M revi ewed - no changes required Xiomy Goldberg social history E&M [facility]nicity: [facility] arital Status: Smoking History: Collin gamez is a former smoker. Laureano Delgado social history reviewed E&M revi ewed - no changes required Nasima Watson MD number of years as a smoker 41 a Tereza [place] smoking, date started 1977 Cather ine Mitch smoking history, tot al pack/year 44 Tereza [place] smoking history, tot al pack/day 1/2 Tereza Mitch cigarette use yes Tereza [place] smoking status Former smoker Marge Quoc nielson [...] Keller smoking history, tot al pack/day 1/2 dAri Keller cigarette use yes Adri Keller smoking [...] Watson MD social history E&M [facility]nicity: [facility] Status: Smoking History: P atient [...] Watson MD social history E&M Ethnicity: Ca [facility] ar[facility] Status: Smoking History: P atient [...] Management Plan continue current therapy Alexa Kathe PREPARATOR HRA, CV Assess/Plan, Angina (inactive) Management Plan [...] Policy type / Coverage type [facility] republican ID [facility] [id number] ADVANCE DIRECTIVES Name Date DISCUSSED - NO DECISION MADE TREATMENT PLAN Date Name Performer [id number],C,has stopped A chele Toneymiglia PREPARATOR [id number],S,a sx no CP or SOB l ast echo showed normal EF H is updated medication list for this problem includes: Carvedilol 3.125 Mg Tablet (Carvedilol) Lisinopril 5 Mg Tablet (Lisinopril) Clopidogrel 75 Mg Tablet (Clopidogrel) ..... Take 1 tablet by mouth once a day Adult Aspirin Regimen 81 Mg Tablet,delayed Release (dr/ec) (Aspirin) ..... 1 tablet by mouth once a day [facility] [id number],S,c ontinue aspirin plavix and statin [facility] [id number],S, H is updated medication list for this problem includes: Atorvastatin 40 Mg Tablet (Atorvastatin) Fenofibrate 160 Mg Tablet (Fenofibrate) ..... Take 1 tablet by mouth once daily C HOL: 194 (10/13/2017) HDL: 38 (10/13/2017) [facility] [id number],S,d oes not have much feeling in legs. 2+ edema. w ill obtain arterial and venous duplex [facility] [id number],B,s topped midodrine, will monitor pt asx with [...] 1 tablet by mouth once a day [facility] [id number],S,h ad tip of left greater toe amputated [...] Inject 60 unit subcutaneously once a day [facility] [id number],S,order sleep s deni [facility] [id number],C,l ifestyle modification encouraged Xiomy Garciamary [id number],C,W ill update HgbA1C as needs tight diabetic [...] mouth once a day take instead of [facility] Adult Aspirin Regimen 81 Mg Tablet,delayed Release (dr/ec) (Aspirin) ..... 1 tablet by mouth once a day Vane Bridges U-100 Insulin 100 Unit/ml (3 Ml) Insulin Pen (Insulin glargine) ..... Inject 60 unit subcutaneously once a day [facility] [id number],C,on asa and st atin [facility] [id number],C,o n statin therapy. Will update lipids H is updated medication list for this problem includes: Atorvastatin 40 Mg Tablet (Atorvastatin) Fenofibrate 160 Mg Tablet (Fenofibrate) ..... Take 1 tablet by mouth once daily [facility] [id number],C,B lood pressure well controlled. Will continue present medication regimen H is updated medication list for this problem includes: Carvedilol 3.125 Mg Tablet (Carvedilol) Lisinopril 5 Mg Tablet (Lisinopril) Adult Aspirin Regimen 81 Mg Tablet,delayed Release (dr/ec) (Aspirin) ..... 1 tablet by mouth once a day [facility] [id number],S,W ith history of CABG x 4 04/2021. [...] a day Orders: 9 9214 MOD 30-39min (CPT-70539) C OMPREHENSIVE METABOLIC PANEL, W/EGFR (62974) L IPID PANEL (7600) H EMOGLOBIN A1c (496) M icroalb/Creatinine Urine, Random (6517) L ipoprotein (a) (208731) U PEP (376125) S PEP (387947) Alexa Ventimiglalisa [facility] [id number],C, F eddie with neurology. Continues on Plavix Xiomy Goldberg [id number],C, B P 96/61. Pt is asymptomatic. Carvedilol and Lisinopril have been reduced, according to pharmacy records. Unkown if patient remains on midodrine. Will continue current medications as he is asymptomatic at this time. Xiomy Goldberg [id number],S, O n replacement therapy. Nasima Watson MD [id number],S, p er PCP Nasima Watson MD [id number],S, W eight loss encouraged Nasima Watson MD [id number],C, R eportedly has stopped smoking. Nasima Watson MD [id number],C, S witched to atorvastatin. Nasima Watson MD [id number],C, N o SOB Nasima Watson MD [id number],C, C hest pain free. Nasima Watson MD [id number],B,Weight loss e ncouraged Marge Lopez EFREN [id number],S,per PCP Gael Lopez EFREN [id number],S, H is updated medication list for this problem includes: Pravastatin 80 Mg Tablet (Pravastatin) ..... Take 1 tablet by mouth every night Fenofibrate 160 Mg Tablet (Fenofibrate) ..... 1 tablet by mouth once a day Marge Lopez EFREN [id number],S, H is updated medication list for this problem includes: Carvedilol 3.125 Mg Tablet (Carvedilol) ..... Take 1 tablet by mouth twice a day Adult Aspirin Regimen 81 Mg Tablet,delayed Release (dr/ec) (Aspirin) ..... 1 tablet by mouth once a day Marge Lopez EFREN [id number],B,s /p CABG 4v 04/2021. Doing well. Increasing [...] mouth once a day Marge Lopez EFREN [id number],C,S MOENGLY ENCOURAGED TO STOP SMOKING; SMOKING CESSATION TECHNIQUES DISCUSSED. Tamie Carrillo [id number],C,W eight loss advised Tamie Carrillo [id number],C,C ontinues on Pravastatin. Tamie Carrillo [id number],C,R ecent labs showed glucose of 337 and triglycerides of 274. I strongly encouraged him to remove all sugary drinks and foods from his diet. Start on Jardiance. Tamie Carrillo [id number],C,BP control is satisfactory. Tamie Carrillo [id number],C,C hest pain free. Effort tolerance remains stable. Continues on Aspirin and Effient. Tamie Carrillo [id number],C,Weight loss a dvised Vamsi Deshpande [id number],C,S TRONGLY ENCOURAGED TO STOP SMOKING; SMOKING CESSATION TECHNIQUES DISCUSSED. Vamsi Deshpande [id number],C,C ontinues on Glimepiride and Basaglar. He would benefit from A1c if insurance allows. Reduced intake of carbohydrates and sugars advised. Vamsi Wise [id number],C,C ontinues on Pravastatin and Fenofibrate. We aim for LDL < 70. He was unable to tolerate Lipitor due to nausea. He would benefit from a lipid panel if insurance allows. Vamsi Deshpande [id number],C,B lood pressure control is satisfactory. Vamsi Wise [id number],C,C hest pain free. Effort tolerance remains stable. Continues on Aspirin and Effient. Vamsi Tn [id number],C,Weight loss a dvised Vamsi Wise [id number],C,S TRONGLY ENCOURAGED TO STOP SMOKING; SMOKING CESSATION TECHNIQUES DISCUSSED. Vamsi [id number],C,O n replacement therapy. Will give order for Vitamin D level. Vamsi [id number],C,C ontinues on Glimepiride and Basaglar. Will give order for A1c. Reduced intake of carbohydrates and sugars advised. Vamsi Frandy [id number],C,C ontinues on Pravastatin and Fenofibrate. We aim for LDL < 70. Will give order for lipid panel. He was unable to tolerate Lipitor due to nausea. Vamsi Deshpande [id number],C,B lood pressure control is satisfactory. Vamsi Deshpande [id number],C,C hest pain free. Effort tolerance remains stable. Continues on Aspirin and Effient. Vamsi Deshpande [id number],C,B lood pressure control is satisfactory. Nasima Watson MD [id number],C,S cristina advised to stop smoking. Nasima Watson MD [id number],C,H e was unable to afford Levemir thus he is now on Novolin 70/30 60 units at night. Blood sugars are running between 130's-160's. Will add Glimepiride 2mg in the morning. He will continue to monitor his blood sugars. Nasima Watson MD [id number],C,W ill change to Atorvastatin 80mg daily as LDL last year was 96 on Pravachol 80mg daily. We aim for an LDL less than 70. Nasima Watson MD [id number],C,R isk factors of CAD, DM and tobacco abuse. Will arrange PRETTY's. Nasima Watson MD [id number],C,C hest pain free. Effort tolerance remains stable. Continues on Aspirin and Effient. Will schedule an echocardiogram to assess his EF, as his last echo was in 2011. Nasima Watson MD [id number],C,S CRISTINA ENCOURAGED TO STOP SMOKING; SMOKING CESSATION TECHNIQUES DISCUSSED. Nasima Watson MD [id number],C,L DL on labs today is 96. His pravastatin was changed to atorvastatin and fenofibrate was added to reach LDL goal of less than 70. We will repeat lipid panel in 8 weeks, and if LDL remains elevated, will add PCSK9 inhibitor. Nasima Watson MD [id number],C,On replacemen t therapy. Nasima Watson MD [id number],C,U ncontrolled with recent HbA1c of 10. His blood sugars range from 190-250. Levemir has been changed to 30 units in the morning and 50 units in the evening. He will continue to monitor his blood sugars and we will adjust the dose accordingly. Nasima Watson MD [id number],C,B lood pressure control is satisfactory. Continues Coreg and lisinopril. Nasima Watson MD [id number],C,C hest pain free. Effort tolerance somewhat limited by fatigue. Continues aspirin and Effient. Nasima Watson MD [id number],C,LDL on labs t fito is 96. Nasima Watson MD [id number],C,C ontinues on Fenofibrate and Pravastatin. Nasima Watson MD [id number],C,B lood pressure control is satisfactory. Nasima Watson MD [id number],C,C hest pain free. Effort tolerance stable. Continues ASA and Effient. Nasima Watson MD [id number],C,C hest pain free. Continues on ASA/Effient as before. His HR is in the 80s. The dose of Coreg has been increased to 12.5mg BID. Nasima Watson MD [id number],W,T he blood sugar was 380mg. His HgA1c was 13.6%. I've changed his Lantus to 30 units subq in the morning and 40 units subq in the evening. He's been advised not to drink sodas and instead drink water. I've advised him against drinking sugary tea. Nasima Watson MD [id number],C,C ontinues on Fenofibrate and Pravastatin. Nasima Watson MD [id number],C,S TRONGLY ENCOURAGED TO STOP SMOKING; SMOKING CESSATION TECHNIQUES DISCUSSED. Nasima Watson MD [id number],C,B lood pressure control is satisfactory. Nasima Watson MD [id number],C,S TRONGLY ENCOURAGED TO STOP SMOKING; SMOKING CESSATION TECHNIQUES DISCUSSED. Nasima Watson MD [id number],C,D iamiketes remains uncontrolled. Will check his HgA1c. If elevated, his dose of insulin will be adjusted. He also has been to comply with a reduced-carbohydrate and high-fiber diet. Nasima Watson MD [id number],C,C hest pain free. Continues on ASA/Effient. Nasima Watson MD [id number],S,C hest pain free. Continues on aspirin. Nasima Watson MD [id number],S,On Lantus and Glimepiride. Nasima Watson MD [id number],S,O n pravastatin and fenofibrate. He can resume his fish oil. Nasima Watson MD [id number],S,B lood pressure control is satisfactory. Nasima Watson MD [id number],S,S trongly advised to quit smoking. Nasima Watson MD [id number],S,Weight loss a dvised. Nasima Watson MD [id number],N, Nasima dupree MD [id number],N, Nasima dupree MD [id number],N, H is updated medication list for this problem includes: Aspirin Tabs (Aspirin tabs) ..... 325mg daily Lisinopril 10 Mg Tabs (Lisinopril) ..... 1 tab daily Carvedilol 6.25 Mg Tabs (Carvedilol) ..... 1 tab twice daily Nasima Watson MD [id number],N, Nasima dupree MD [id number],N, Nasima dupree MD Cardiology:has stopped Alexa christianson [facility] Cardiology:asx no CP or SOB l ast echo showed normal EF H is updated medication list for this problem includes: Carvedilol 3.125 Mg Tablet (Carvedilol) Lisinopril 5 Mg Tablet (Lisinopril) Clopidogrel 75 Mg Tablet (Clopidogrel) ..... Take 1 tablet by mouth once a day Adult Aspirin Regimen 81 Mg Tablet,delayed Release (dr/ec) (Aspirin) ..... 1 tablet by mouth once a day [facility] Cardiology:continue aspirin plav ix and statin [facility] Cardiology: H is updated medication list for this problem includes: Atorvastatin 40 Mg Tablet (Atorvastatin) Fenofibrate 160 Mg Tablet (Fenofibrate) ..... Take 1 tablet by mouth once daily C HOL: 194 (10/13/2017) HDL: 38 (10/13/2017) [facility] Cardiology:does not have much feeling in legs. 2+ edema. w ill obtain arterial and venous duplex [facility] Cardiology:stopped m idodrine, will monitor pt [...] 1 tablet by mouth once a day [facility] Cardiology:had tip o f left greater [...] Inject 60 unit subcutaneously once a day [facility] Cardiology:order sleep study [facility] Cardiology:lifestyle modificatio bipin Goldberg Cardiology:Will upda [...] Inject 60 unit subcutaneously once a day [facility] Cardiology:on asa and statin [facility] Cardiology:on statin therapy. Will update lipids H is updated medication list for this problem includes: Atorvastatin 40 Mg Tablet (Atorvastatin) Fenofibrate 160 Mg Tablet (Fenofibrate) ..... Take 1 tablet by mouth once daily [facility] Cardiology:Blood pre ssure well controlled. Will continue present medication regimen H is updated medication list for this problem includes: Carvedilol 3.125 Mg Tablet (Carvedilol) Lisinopril 5 Mg Tablet (Lisinopril) Adult Aspirin Regimen 81 Mg Tablet,delayed Release (dr/ec) (Aspirin) ..... 1 tablet by mouth once a day Alexa Archuleta [facility] Cardiology:With hist ory of CABG x 4 [...] a day Orders: 9 9214 MOD 30-39min (CPT-23456) C OMPREHENSIVE METABOLIC PANEL, W/EGFR (51357) L IPID PANEL (7600) H EMOGLOBIN A1c (496) M icroalb/Creatinine Urine, Random (6517) L ipoprotein (a) (694095) U PEP (066395) S PEP (426928) Alexaronaldo Fitzgeraldrobbyalisa [facility] Cardiology: F eddie with neurology. Continues on [...] Watson MD Cardiology: N o SOB Nasima Watson MD Cardiology: C hest pain free. Nasima Watson MD Cardiology:Weight loss encourage d Marge Lopez NP Cardiology:per PCP Marge Miller in SURGICAL TECHNICIAN Cardiology: H is updated medication list for [...] CBC (INCLUDES DIFF/P LT) DLCO Order - 80204 FRC Order - 98681 FVC Order - 57715 Full PFT Full PFT HISTORY OF PROCEDURES [...] EKG Nasima Watson MD complet ed SNOMED-CT: 610150123 Smoking Cessation Counseling Nasima Watson MD completed SNOMED-CT: 48707578 Physical Exam, Performed: Pulse Exam of Foot Nasima Watson MD completed KRYSTA Watson MD complet ed SNOMED-CT: 205068225 038795 Current Medications Documented Nasima Watson MD completed SNOMED-CT: 49494878 Physical Exam, Performed: Pulse Exam of Foot Nasima Watson MD completed SNOMED-CT: 869458718 Smoking Cessation Counseling Nasima Watson MD completed KRYSTA Watson MD complet ed SNOMED-CT: 719158286 447298 Current Medications Documented Naisma Watson MD completed SNOMED-CT: 013044358 Smoking Cessation Counseling Nasima Watson MD completed SNOMED-CT: 53997714 Physical Exam, Performed: Pulse Exam of Foot Nasima Watson MD completed EKG Nasima Watson MD complet ed SNOMED-CT: 307906529 968949 Current Medications Documented Nasima Watson MD completed EKG Nasima Watson MD complet ed BLOOD COUNT HEMOGLOBIN Nasima Watson MD completed EKG Nasima Watson MD complet ed EKG Nasima Watson MD complet ed
--- OUTSIDE RECORDS SUMMARY | 2024-09-27 22:44 | XMS_ITS | Clinical Summary ---
Author Organization [facility] [address] [facility] Address [address] [place] [address] Care Team Providers Care Housekeeper/Laundry Assistant Name Role Phone Unknown, Notinfile Primary Care Provider Unavail able Salbador Granados MD Unavailable [phone] Rubin Clayton MD Unavailable Miscellaneous, Not In File Unavailable Unava ilable Humphrey Manriquez MD Unavailable [phone] Allergies Active Allergy Reactions Criticality Noted Date [...] (05/01/2021): Added automatically from request for surgery [id number] Cerebrovascular accident (CVA) Surgical History Surgery Date Site/Laterality Comments CARDIAC STENT PLACEMENT CORONARY ARTERY BYPASS GRAFT 05/20/2021 - 06/19/2021 Four-vessel [facility] Medical History Medical History Date Comments Hypertension [...] Counseling Given: Yes Comments:Stop smoking 04/2021 after [place] Alcohol Use Standard Drinks/Week Comments No 0 [...] on file 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 Gender Identity Not on file Sexual Orientation Not on file Obstetrics History Last Filed Vital Signs Vital Sign Reading Time Taken Comments Blood Pressure 129/84 09/15/2021 12:18 PM CDT Pulse 80 09/15/2021 12:18 PM CDT Temperature 36.6 C (97.8 F) 08/21/2021 6:00 AM 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 Respiratory Rate 14 09/15/2021 12:18 PM CDT Oxygen Saturation 97% 09/15/2021 12:18 PM CDT Inhaled Oxygen Concentration - - Weight 84.8 kg (187 lb) 09/15/2021 12:18 PM CDT Height 167.6 cm (5' 6 ) 09/15/2021 12:18 PM CDT Body Mass Index 30.18 09/15/2021 12:18 PM CDT Plan of Treatment Not on file Medical Devices Implanted Type Area Physical Education Department Chair Device Identifier Shelf Expiration Date Model / Serial / Lot [employer] [id number] Sensation Plus Statlock 8fr 17.4mm .027in 6in 258mm Fiber Optic - [id number] Implanted:Qty: 1 on 05/01/2021 by Rubin Clayton MD at [facility] 08/14/2023 [id number] / / [id number] Insurance [facility] HEIDY ALVAREZ [id number] Advance Directives For more information, please contact: [phone] * Full Code (Latest Code Status on File) Date Activated Date Inactivated Comments 08/19/2021 4:45 PM 08/21/2021 7:26 PM * Full Code Date Activated Date Inactivated Comments 07/29/2021 4:33 AM 07/30/2021 9:59 PM * Full Code Date Activated Date Inactivated Comments 05/09/2021 11:04 AM 06/03/2021 7:39 PM * Full Code Date Activated Date Inactivated Comments 05/01/2021 10:48 PM 05/08/2021 10:11 AM Care Teams Housekeeper/Laundry Assistant Relationship Specialty Start Date End Date Unknown, Notinfile PCP - General 05/01/21 [place] [id number] [place] [address] Surgeon Cardiothoracic Surgery 05/01/21 [place] [id number] [place] [address] Referring Physician Cardiovascular Disease 06/03/21 Miscellaneous, Not In File 07/30/21 Humphrey Manriquez MD [address] [facility] [address] [place] [address] Consulting Physician Neurology 07/30/21
--- OUTSIDE RECORDS SUMMARY | 2024-09-27 22:44 | XMS_ITS | Clinical Summary ---
Author Organization [facility] Address [address] [place] [id number] Care Team Providers Care Hard Rock Drill Operator Name Role Phone Unavailable Primary Care [...]
--- OUTSIDE RECORDS SUMMARY | 2024-09-27 22:44 | XMS_ITS | Clinical Summary ---
Author Organization [facility] Address [address] [place] [address] Phone Care Team Providers Care Auto Salvage Worker Name Role Phone Provider, None Primary Care [...] sodium chloride (OCEAN) 0.65 % Solution 1 [place] by Nasal route as needed. 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 Gender Identity Not on file Sexual Orientation Not on file Last Filed Vital Signs Vital Sign Reading Time Taken Comments Blood Pressure 112/73 05/21/2016 9:40 PM CASE CHECKER Pulse 99 05/21/2016 9:40 PM CASE CHECKER Temperature 36.5 C (97.7 F) 05/21/2016 9:40 PM CASE CHECKER Respiratory Rate 16 05/21/2016 9:40 PM CASE CHECKER Oxygen Saturation 96% 05/21/2016 9:40 PM CASE CHECKER Inhaled Oxygen Concentration - - Weight 99.8 kg (220 lb) 05/21/2016 9:40 PM CASE CHECKER Height 182.9 cm (6') 05/21/2016 9:40 PM CASE CHECKER Body Mass Index 29.84 05/21/2016 9:40 PM CASE CHECKER Plan of Treatment Not on file Insurance MEDICAID BLUE CROSS [place] Care Teams Auto Salvage Worker Relationship Specialty Start Date End Date Provider, None [place] PCP - General 05/21/16
[2024-09-27 22:46] LABS: Glucose Point of Care 103 mg/dl (65-105)
[2024-09-27 23:12] VITALS: BP 129/74; PULSE 106; RESP 18; O2SAT 99
--- NOTE | 2024-09-27 23:13 | ED_ITS ---
HPI - General Adult General Chief complaint: Fall Stated complaint: fall Time Seen by Provider: 09/27/24 22:33 History of Present Illness HPI narrative: Patient is a 64-year-old gentleman presents emergency department with chief complaint of altered mental status patient's family reported the last saw him normal this morning and then came home around 6:00 p.m. and noticed that he was not acting right they heard a thud and it sounded as though he had fallen patient has prior history of CVA and acted like this after previous strokes. The patient was confused and not answering questions appropriately and the family reported he had been having slurred speech at times and difficulty finding his words Related Data Home Medications ?Medication ?Instructions ?Recorded ?Confirmed ?Last Taken ?Type carvedilol 3.125 mg tablet (Coreg) 3.125 mg PO Q12H 09/05/21 08/09/24 09/16/23 History insulin glargine 100 unit/mL (3 45 unit subcut HS 03/11/22 08/09/24 09/16/23 History mL) subcutaneous pen (Lantus Solostar U-100 Insulin) Allergies Allergy/AdvReac Type Severity Reaction Status Date / Time metoclopramide AdvReac Mild Vomiting Verified 09/26/24 09:40 Review of Systems 2 Review of Systems: A 10 system review of systems was completed on the patient and is negative except for what is stated in the HPI. Nursing and ancillary documentation was reviewed. [facility] Past Medical History Medical History Swelling of lower extremity Diabetic ulcer of right heel Osteomyelitis of toe of right foot Personal history of noncompliance with medical treatment and regimen Encounter for postoperative care ILANA on CPAP Peripheral arterial occlusive disease Diabetic foot ulcer Chronic anemia Seizure disorder Gastroesophageal reflux disease Type 2 diabetes mellitus Cerebrovascular accident (06/2021) It sounds as though he had an ischemic stroke (symptoms include vertigo and visual changes) with hemorrhagic conversion. Chronic obstructive pulmonary disease Kidney stones Hypertension Coronary artery disease Status post bifurcation stents to the LAD and diagonal in 2006, stent to the LAD for in-stent restenoses in 2009, and CABG in April 2021 at [facility]. Surgical History Surgical History History of amputation of left great toe History of amputation of right great toe 03/11/23 History of myringoplasty History of inguinal hernia repair times 2 History of coronary artery bypass graft (04/2021) Done at [facility]. History of percutaneous coronary intervention Bifurcation stents to LAD and diagonal in 2006. Stent to the LAD in 2009. (three stents) Family History Family History Mother Family history of diabetes mellitus in first degree relative Other Diabetes mellitus Hypertension Social History Social History Social History: The patient lives with his and 2 sons in [place]. His sons help him out. 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 He smoked about a pack a day for nearly 45 years and he quit at the time of his bypass in April 2021. He was a heavier drinker in his younger years. No illicit substance use. Surrogate medical decision maker: Shahrzad Qiu, . Code status: Full code. Smoking packs per day: 1.5 Smoking cigarettes per day: 30.0 Years smoked: 30 Smoking pack-years: 45.00 Smoking status: Current some day smoker Second hand tobacco smoke exposure: Yes Additional smoking assessment comments: Per son tries to smoke sometimes Alcohol intake: never Substance use: never Substance use type: does not use Do You Feel Safe in your Home?: Yes Lack of Transportation: No Lack of Food: Never True Current Housing: I Have Housing Concerned About Future Housing: No Difficulty Paying Gas/Electric Bills: No Difficulty Paying for Meds: No Currently Unemployed: No Education: High School Diploma/GED Difficulty w/ Childcare or Family Care: No Spiritual care concerns: No Exam 2 Narrative: GENERAL: Ill-appearing, well-nourished, and in moderate acute distress. HEAD: Normocephalic, atraumatic. EYES: PERRLA and EOMI. ENT: Nares clear, no rhinorrhea or epistaxis. Mucous membranes moist. NECK: Supple. CHEST: Clear to auscultation. No respiratory distress. HEART: Regular rate and rhythm. No murmur heard. Normal peripheral pulses. ABDOMEN: Soft, nontender, nondistended, normal active bowel sounds. EXTREMITIES: Normal range of motion. No edema. SKIN: Warm, dry, no rash. NEURO: No focal deficits moves all extremities. Alert and confused not answering questions appropriately. Course Vital Signs Vital signs: Vital Signs Temperature 36.8 C 09/27/24 19:30 Pulse Rate 83 09/27/24 19:30 Respiratory Rate 18 09/27/24 19:30 Blood Pressure 146/75 H 09/27/24 19:30 Pulse Oximetry 98 09/27/24 19:30 Temperature 36.8 C 09/27/24 19:30 Pulse Rate 108 H 09/28/24 02:01 Respiratory Rate 19 09/28/24 02:01 Blood Pressure 128/69 09/28/24 02:01 Pulse Oximetry 98 09/28/24 02:01 Medical Decision Making Vital Signs Vital Signs: Vital Signs Temperature 36.8 C 09/27/24 19:30 Pulse Rate 83 09/27/24 19:30 Respiratory Rate 18 09/27/24 19:30 Blood Pressure 146/75 H 09/27/24 19:30 Pulse Oximetry 98 09/27/24 19:30 Temperature 36.8 C 09/27/24 19:30 Pulse Rate 108 H 09/28/24 02:01 Respiratory Rate 19 09/28/24 02:01 Blood Pressure 128/69 09/28/24 02:01 Pulse Oximetry 98 09/28/24 02:01 Lab Data 09/27/24 23:28 09/27/24 23:28 Labs: Lab Results 09/27/24 09/27/24 Range/Units 22:43 23:28 WBC 11.5 H (4.5-10.0) K/mm3 RBC 4.18 L (4.6-6.20) M/mm3 Hgb 12.5 L (14.0-18.0) g/dL Hct 39.5 L (42.0-52.0) % MCV 94.5 (80-100) fl MCH 29.9 (26-34) pg MCHC 31.6 L (32-36) g/dl RDW 15.0 H (11.5-14.5) % Plt Count 318 (150-375) k/mm3 MPV 11.0 H (7.4-10.4) fl Immature Gran % (Auto) 0.3 (0-0.5) % Neut % (Auto) 84.9 H (45.5-73.1) % Lymph % (Auto) 8.7 L (18.3-44.2) % [place] % (Auto) 5.8 (2.6-8.5) % Eos % (Auto) 0.0 (0-4.4) % Baso % (Auto) 0.3 (0.2-1.2) % Lymph # (Auto) 1.00 (0.9-3.2) K/mm3 [place] # (Auto) 0.7 H (0.1-0.6) K/mm3 Eos # (Auto) 0.0 (0-0.3) K/mm3 Baso # (Auto) 0.0 (0.0-0.1) K/mm3 Abs Immat Gran (auto) 0.04 H (0.00-0.031) K/mm3 Absolute Neuts (auto) 9.8 H (1.3-6.7) K/mm3 Absolute Nucleated RBC 0.000 (0.0-0.012) K/mm3 Nucleated RBC % 0.0 (0.0-0.2) % PT 14.9 H (11.1-14.7) Seconds INR 1.1 APTT 44.2 H (22.3-36.8) Seconds Sodium 142 (137-145) mmol/L Potassium 4.7 (3.4-5.0) mmol/L Chloride 108 H (98-107) mmol/L Carbon Dioxide 18 L (22-30) mmol/L Anion Gap 16 H (4-12) mmol/L BUN 21 H (9-20) mg/dL Creatinine 1.32 H (0.7-1.3) mg/dL Estim Creat Clear Calc 51 ml/min Estimated GFR 55 L (59 - ) Glucose 95 (65-110) mg/dL POC Capillary Glucose 103 (65-105) mg/dl Lactic Acid 3.6 H (0.7-2.0) mmol/L Calcium 9.1 (8.4-10.2) mg/dL Magnesium 2.0 (1.6-2.3) mg/dL Total Bilirubin 0.5 (0.2-1.3) mg/dL AST 21 (17-59) U/L ALT 19 (6-50) U/L Alkaline Phosphatase 72 (38-126) U/L Troponin I 0.014 (0.000-0.034) ng/mL Total Protein 9.0 H (6.3-8.2) g/dL Albumin 4.9 (3.5-5.1) g/dL Lipase 31 (23-300) U/L Procalcitonin 0.1 ng/mL Ethyl Alcohol < 10 (<10) mg/dL Influenza A (RT-PCR) Negative (Negative) Influenza B (RT-PCR) Negative (Negative) RSV (RT-PCR) Negative (Negative) SARS-CoV-2 RNA (RT-PCR) Negative (Negative) Critical Care Time Critical Care Time Critical Care Time: Yes Total Critical Care Time: 35 Restraint Face to Face Eval ED Reason for Restraint Aggressive/Violent (Pulling at lines confused fall risk) Evaluation Findings Date Seen by EDP: 09/27/24 Time Seen by EDP: 23:13 Pt's immediate situation:: Non cooperative, confused, pulling at lines pulling Pt's reaction to intervention:: Attempted non chemical restraints, and anxiolysis Pt's med/behavioral condition:: Patient at risk for accidental self injury Restraint or Seclusion Need Need to continue or terminate:: Chemical restraint Discharge Plan Discharge Clinical Impression: Pneumonia, Altered mental status Patient Disposition: Still a Patient Condition: Stable Patient Language: Ukrainian Prescriptions: No Action (DME) OneTouch Verio test strips Strip See Rx Instructions .ROUTE .MEDSUPPLY Qty: 100 0RF Rx Instructions: Check glucose 1-2 times a day (DME) blood-glucose meter [OneTouch Verio Flex Start] Kit See Rx Instructions .Route Qty: 1 0RF Rx Instructions: As directed (DME) lancets [OneTouch Delica Plus Lancet] 33 gauge misc See Rx Instructions .ROUTE .MEDSUPPLY Qty: 100 0RF Rx Instructions: Check glucose 1-2 Jardiance 25 mg tablet 25 mg PO DAILY Qty: 90 1RF Gvoke HypoPen 2-Pack 1 mg/0.2 mL auto-injector 1 mg subcut ONCE Qty: 0.4 4RF Rx Instructions: may repeat once after 15 minutes if no response aspirin [Adult Aspirin Regimen] 81 mg tablet,delayed release (DR/EC) 81 mg PO DAILY Qty: 90 4RF carvedilol [Coreg] 3.125 mg tablet 3.125 mg PO Q12H insulin glargine [Lantus Solostar U-100 Insulin] 100 unit/mL (3 mL) insulin pen 45 unit SUBCUT HS atorvastatin [Lipitor] 40 mg tablet 40 mg PO DAILY Qty: 90 1RF fenofibrate 160 mg tablet 160 mg PO DAILY Qty: 90 1RF famotidine 40 mg tablet 40 mg PO DAILY Qty: 90 1RF carbamazepine 200 mg tablet 200 mg PO Q8HR Qty: 90 1RF lisinopril [Zestril] 5 mg tablet 5 mg PO DAILY Qty: 90 0RF Follow-up/Referrals: Evangelina Lazo DO [Primary Care Provider] - Time of Disposition: 02:44
[2024-09-27] MEDS: LORazepam INJ (*CRX) 2 MG/ML VIAL 1 MG IV PUSH ×2 (23:20→23:43)
[2024-09-27] MEDS: HALOPERIDOL LACTATE 5 MG/ML VIAL 2.5 MG IV PUSH ×2 (23:20→23:45)
[2024-09-27 23:27] VITALS: BP 119/63; PULSE 118; RESP 15; O2SAT 97
[2024-09-27 23:33] LABS: Basophils Percent Auto 0.3 % (0.2-1.2); Hematocrit 39.5 % (42.0-52.0); Hemoglobin 12.5 g/dL (14.0-18.0); Immature Granulocyte Absolute 0.04 K/mm3 (0.00-0.031); Immature Granulocyte Percent A 0.3 % (0-0.5); Lymphocytes Percent Auto 8.7 % (18.3-44.2); Mean Corpuscular HGB Conc 31.6 g/dl (32-36); Mean Corpuscular Hemoglobin 29.9 pg (26-34); Mean Corpuscular Volume 94.5 fl (80-100); Monocytes Absolute Auto 0.7 K/mm3 (0.1-0.6); Monocytes Percent Auto 5.8 % (2.6-8.5); Neutrophils Absolute Auto 9.8 K/mm3 (1.3-6.7); Neutrophils Percent Auto 84.9 % (45.5-73.1); Platelet Count Result 318 k/mm3 (150-375); Red Blood Count 4.18 M/mm3 (4.6-6.20); White Blood Count 11.5 K/mm3 (4.5-10.0)
[2024-09-27 23:42] VITALS: BP 107/69; PULSE 107; RESP 18; O2SAT 99
[2024-09-27 23:43] LABS: Ethanol < 10 mg/dL (<10); Lactic Acid Reflex 3.6 mmol/L (0.7-2.0)
[2024-09-27 23:44] LABS: Alanine Aminotransferase 19 U/L (6-50); Albumin Level 4.9 g/dL (3.5-5.1); Alkaline Phosphatase 72 U/L (38-126); Anion Gap 16 mmol/L (4-12); Aspartate Amino Transferase 21 U/L (17-59); Bilirubin,Total 0.5 mg/dL (0.2-1.3); Blood Urea Nitrogen 21 mg/dL (9-20); Calcium 9.1 mg/dL (8.4-10.2); Carbon Dioxide 18 mmol/L (22-30); Chloride 108 mmol/L (98-107); Estimated CRCL calculation 51 ml/min; Estimated Glomerular Filt Rate 55; Glucose 95 mg/dL (65-110); Lipase 31 U/L (23-300); Potassium 4.7 mmol/L (3.4-5.0); Sodium 142 mmol/L (137-145)
[2024-09-27 23:45] LABS: INR 1.1; Prothrombin Time 14.9 Seconds (11.1-14.7)
[2024-09-27 23:46] LABS: Partial Thromboplastin Time 44.2 Seconds (22.3-36.8)
[2024-09-27 23:55] LABS: Troponin I 0.014 ng/mL (0.000-0.034)
[2024-09-27 23:57] VITALS: BP 117/72; PULSE 101; RESP 19; O2SAT 99
[2024-09-28] VITALS (18 sets, daily range): BP systolic 103–148; BP diastolic 63–86; PULSE 65–123; RESP 15–24; TEMP 36.5–37.6; O2SAT 95–100; BMI 29.0
[2024-09-28 00:01] LABS: Procalcitonin 0.1 ng/mL
[2024-09-28 00:08] LABS: Influenza A QL RT-PCR Negative (Negative); Influenza B QL RT-PCR Negative (Negative); RSV RNA, RT-PCR Negative (Negative); SARS-CoV-2 RNA PCR Negative (Negative)
[2024-09-28 01:31] LABS: Reflex Lactic Acid Yes or No Add Lactic
[2024-09-28] MEDS: SODIUM CHLORIDE 0.9% IV 1,000 ML 999 ML IV CONT (02:03)
--- NOTE | 2024-09-28 04:23 | PC.NURSE ---
This RN and staff attempted to collect urine on pt. unable to collect due to aggressive behavior
--- NOTE | 2024-09-28 04:27 | ADMGEN ---
This patient, Baldev Qiu, was admitted to [facility] Room 332-01. Patient/family oriented to hospital policies and general routines including ID bracelet, bed and alarms, visiting hours, pain management, procedures, bathroom and other care routines, personal items, smoking policy, room service/diet, and visiting hours. Information on how to activate the Rapid Response Team has been discussed. Patient/Family are encouraged to report perceived risks to care and to ask questions if they do not understand what they are told or what they should do.
[2024-09-28] MEDS: SODIUM CHLORIDE 0.9% IV 1,000 ML 125 ML IV CONT (05:23)
[2024-09-28] MEDS: AZITHROMYCIN 500 MG/NS 250 ML 500 MG/250 ML BAG 250 MG IVPB (05:58)
[2024-09-28 06:54] LABS: Lactic Acid 1.4 mmol/L (0.7-2.0)
[2024-09-28 07:10] LABS: Troponin I 0.054 ng/mL (0.000-0.034)
[2024-09-28 10:19] LABS: Amphetamine Screen Urine Negative (Negative); Barbiturate Screen Urine Negative (Negative); Benzodiazepines Screen Urine Negative (Negative); Cannabinoid Screen Urine Negative (Negative); Cocaine Screen Urine Negative (Negative); Methadone Screen Urine Negative (Negative); Opiate Screen Urine Negative (Negative); Phencyclidine Screen Urine Negative (Negative)
[2024-09-28] MEDS: OLANZapine 5 MG, WATER, STERILE FOR INJECTION 2.1 ML IM (15:03)
--- NOTE | 2024-09-28 17:14 | P.HP_ITS ---
H&P: HPI History of Present Illness Date/Time: 09/28/24 17:14 Chief Complaint: AMS Narrative: This is a 64-year-old male with a significant past medical history of type 2 diabetes mellitus, GERD, seizure disorder, CVA, kidney stones, hypertension, coronary artery disease status post stent placement and CABG, ILANA, former smoker who presented to the hospital with altered mental status and fall. Most of history of presenting illness was obtained from the EMR as patient is obtunded and no family was available at the bedside. According to the EMR family noted that his last known normal was yesterday morning. Family came home around 6:00 p.m. yesterday and noticed that he was not acting right and they heard him fall. They brought him in for further evaluation as he has had similar presentation when he had his CVA. At the time of his fall he was having slurred speech, difficulty finding words and was confused not answering questions appropriately. Workup in the hospital included a head CT which was negative. Cervical spine CT which was negative for any acute fracture or subluxation. Head/neck CTA did not show any large vessel occlusion, probable moderate to high-grade stenosis in the cavernous portions of the distal internal carotid arteries related to atherosclerotic calcification, chronic right occipital lobe and right cerebellum infarcts. Chest x-ray showed left lower lobe atelectasis versus pneumonia. Initial labs showed a white blood cell count of 11.5, hemoglobin 12.5 INR 1.1, bicarb 18, anion gap 16, creatinine 1.32, EGFR 55, lactic acid 3.6> 1.4, troponin 0.014> 0.054> 0.040, procalcitonin 0.1. Urine drug screen was negative. Alcohol screening was negative. Respiratory panel was negative for influenza a and B, RSV, COVID. Blood cultures were obtained and pending. EKG showed sinus tachycardia with first-degree AV block with left axis deviation with a rate of 109, QTC 438. Patient was given 1 L of LR, Rocephin, azithromycin, Zyprexa, Ativan, Haldol while in the ED. MRI was obtained and is pending. Neurology was consulted. Review of Systems Review of Systems: ROS unobtainable: Yes unobtainable due to mental status PMFSH Past Medical History Medical History Swelling of lower extremity Diabetic ulcer of right heel Osteomyelitis of toe of right foot Personal history of noncompliance with medical treatment and regimen Encounter for postoperative care ILANA on CPAP Peripheral arterial occlusive disease Diabetic foot ulcer Chronic anemia Seizure disorder Gastroesophageal reflux disease Type 2 diabetes mellitus Cerebrovascular accident (06/2021) It sounds as though he had an ischemic stroke (symptoms include vertigo and visual changes) with hemorrhagic conversion. Chronic obstructive pulmonary disease Kidney stones Hypertension Coronary artery disease Status post bifurcation stents to the LAD and diagonal in 2006, stent to the LAD for in-stent restenoses in 2009, and CABG in April 2021 at [facility]. Surgical History Surgical History History of amputation of left great toe History of amputation of right great toe 03/11/23 History of myringoplasty History of inguinal hernia repair times 2 History of coronary artery bypass graft (04/2021) Done at [facility]. History of percutaneous coronary intervention Bifurcation stents to LAD and diagonal in 2006. Stent to the LAD in 2009. (three stents) Family History Family History Mother Family history of diabetes mellitus in first degree relative Other Diabetes mellitus Hypertension Social History Social History Social History: The patient lives with his and 2 sons in [place]. His sons help him out. 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 He smoked about a pack a day for nearly 45 years and he quit at the time of his bypass in April 2021. He was a heavier drinker in his younger years. No illicit substance use. Surrogate medical decision maker: Shahrzad Qiu, . Code status: Full code. Smoking packs per day: 1.5 Smoking cigarettes per day: 30.0 Years smoked: 30 Smoking pack-years: 45.00 Smoking status: Former smoker Second hand tobacco smoke exposure: Yes Additional smoking assessment comments: Per son tries to smoke sometimes Alcohol intake: current Drinks per week: 2 Substance use: never Substance use type: does not use Do You Feel Safe in your Home?: Yes Lack of Transportation: No Lack of Food: Never True Current Housing: I Have Housing Concerned About Future Housing: No Difficulty Paying Gas/Electric Bills: No Difficulty Paying for Meds: No Currently Unemployed: No Education: High School Diploma/GED Difficulty w/ Childcare or Family Care: No Spiritual care concerns: No Meds Home Medications and Allergies Home Medications ?Medication ?Instructions ?Recorded ?Confirmed ?Type carvedilol 3.125 mg tablet (Coreg) 3.125 mg PO Q12H 09/05/21 09/28/24 History insulin glargine 100 unit/mL (3 45 unit subcut DAILY 03/11/22 09/28/24 History mL) subcutaneous pen (Lantus Solostar U-100 Insulin) atorvastatin 40 mg tablet (Lipitor) 40 mg PO DAILY #90 tabs 05/23/24 09/28/24 Rx fenofibrate 160 mg tablet 160 mg PO DAILY #90 tabs 05/23/24 09/28/24 Rx carbamazepine 200 mg tablet 200 mg PO Q8HR #90 tabs 06/22/24 09/28/24 Rx famotidine 40 mg tablet 40 mg PO DAILY #90 tabs 06/22/24 09/28/24 Rx lisinopril 5 mg tablet (Zestril) 5 mg PO DAILY #90 tabs 07/10/24 09/28/24 Rx blood sugar diagnostic (OneTouch #100 ea 08/09/24 08/09/24 Rx Verio test strips) blood-glucose meter (OneTouch #1 ea 08/09/24 08/09/24 Rx Verio Flex Start kit) empagliflozin 25 mg tablet 25 mg PO DAILY #90 tabs 08/09/24 08/09/24 Rx (Jardiance) glucagon 1 mg/0.2 mL subcutaneous 1 mg (0.2 mL) subcut ONCE #0.4 mL 08/09/24 09/28/24 Rx auto-injector (Gvoke HypoPen 2-Pack) lancets 33 gauge (OneTouch [facility] #100 ea 08/09/24 08/09/24 Rx Plus Lancet) aspirin 81 mg tablet,delayed 81 mg PO DAILY #90 tabs 09/26/24 09/28/24 Rx release (Adult Aspirin Regimen) empagliflozin 25 mg tablet 25 mg PO DAILY 09/28/24 09/28/24 History (Jardiance) Allergies Allergy/AdvReac Type Severity Reaction Status Date / Time metoclopramide AdvReac Mild Vomiting Verified 09/26/24 09:40 Vital Signs Vital Signs - 24 hr 09/27/24 19:30 09/27/24 22:36 09/27/24 23:12 Temperature 98.2 F Pulse Rate 83 79 106 H Respiratory Rate 18 16 18 Blood Pressure 146/75 H 128/47 L 129/74 Pulse Oximetry 98 99 99 Oxygen Delivery 09/27/24 23:27 09/27/24 23:42 09/27/24 23:57 Temperature Pulse Rate 118 H 107 H 101 H Respiratory Rate 15 18 19 Blood Pressure 119/63 107/69 117/72 Pulse Oximetry 97 99 99 Oxygen Delivery 09/28/24 00:12 09/28/24 01:12 09/28/24 02:01 Temperature Pulse Rate 123 H 104 H 108 H Respiratory Rate 24 H 21 H 19 Blood Pressure 103/66 121/81 128/69 Pulse Oximetry 100 96 98 Oxygen Delivery 09/28/24 02:12 09/28/24 03:45 09/28/24 04:25 Temperature Pulse Rate 110 H 110 H 110 H Respiratory Rate 21 H 21 H 21 H Blood Pressure 133/86 133/86 133/86 Pulse Oximetry 97 97 97 Oxygen Delivery 09/28/24 05:25 09/28/24 06:00 09/28/24 08:02 Temperature 99.7 F H Pulse Rate 109 H 87 Respiratory Rate 16 Blood Pressure 109/74 Pulse Oximetry 95 Oxygen Delivery Room Air 09/28/24 08:50 09/28/24 12:03 09/28/24 14:40 Temperature 97.7 F Pulse Rate 81 89 Respiratory Rate 18 Blood Pressure 117/63 Pulse Oximetry 97 Oxygen Delivery Room Air 09/28/24 16:01 Temperature Pulse Rate 81 Respiratory Rate Blood Pressure Pulse Oximetry Oxygen Delivery Exam Narrative: General: In no acute distress, well nourished Head: Acute encephalopathy Eyes: PERRLA, sclera clear, eyes deviated in downward position ENT: moist mucous membranes, nasal passages clear Neck: supple, no JVD, no adenopathy, trachea midline Cardiac: Normal S1 and S2. RRR, No murmur, gallops or friction rubs, peripheral pulses intact. Respiratory: Lungs clear to auscultation, no adventitious lung sounds, currently on room air Gastrointestinal: soft, non-distended, non-tender, normoactive bowel sounds. : voiding without difficulty. Extremities: moves all extremities well, no edema Skin: clean, dry, intact. No wounds or lesions. Neuro: Obtain ended, withdrawals from pain Psych: Unable to assess due to altered mental status H&P: Results Labs Labs: Short CBC 09/27/24 Range/Units 23:28 WBC 11.5 H (4.5-10.0) K/mm3 Hgb 12.5 L (14.0-18.0) g/dL Hct 39.5 L (42.0-52.0) % Plt Count 318 (150-375) k/mm3 BMP 09/27/24 23:28 Sodium 142 Potassium 4.7 Chloride 108 H Carbon Dioxide 18 L BUN 21 H Creatinine 1.32 H Glucose 95 Calcium 9.1 Cardiac Enzymes 09/27/24 09/28/24 09/28/24 Range/Units 23:28 06:34 13:11 Troponin I 0.014 0.054 H* D 0.040 H* D (0.000-0.034) ng/mL Liver Function 09/27/24 Range/Units 23:28 Total Bilirubin 0.5 (0.2-1.3) mg/dL AST 21 (17-59) U/L ALT 19 (6-50) U/L Alkaline Phosphatase 72 (38-126) U/L Albumin 4.9 (3.5-5.1) g/dL Imaging CT scan - head: Radiologist's impression: CT brain wo con Ordering provider: Alondra Onofre History: 64 years Male with . fall, ams . Comparison: None. Technique: CT of the head without contrast. Radiation reduction technique utilized.The dose-length product was 1362 mGy-cm. FINDINGS: BRAIN PARENCHYMA AND CSF SPACES: Old infarct with encephalomalacia in the right apical area. Brain atrophy with deep white matter ischemic changes. Lacunar infarcts in the right thalamus and left basal ganglia. Old infarct in the right cerebellar hemisphere. Otherwise, No midline shift, mass effect or hemorrhage. The brain parenchyma and CSF spaces are normal. VISUALIZED PARANASAL SINUSES: Well aerated. MASTOIDS: Well aerated. BONES: The bones appear intact. SOFT TISSUES: Visualized nasopharynx is normal. Superficial soft tissues are normal. IMPRESSION: No acute intracranial findings. Reviewed, dictated and finalized at location A. Chest x-ray: Radiologist's impression: XR chest 1V portable Ordering provider: Carlos Wallace MD History: 64 years Male with . weakness . Comparison: August 03, 2024 FINDINGS: MEDIASTINUM: The cardiac silhouette is not enlarged. Prominent shahriar. Postoperative changes of the mediastinum. LUNGS: No effusions or pneumothorax. Prominent bronchovascular markings in the lower lobes more on the left side which may indicate atelectasis versus pneumonia. Underlying fibrotic changes are noted OTHER: No free air under the diaphragm. IMPRESSION: Left lower lobe atelectasis versus pneumonia. Reviewed, dictated and finalized at location A. Cervical spine CT: Radiologist's impression: Noncontrast CT scan of the cervical spine Technique: Multiple contiguous axial [address] images of the cervical spine were obtained and reconstructed in 2D sagittal and coronal planes on the acquisition scanner. Dose reduction technique was used on this scan by utilizing automated exposure control, adjustment of the mA and/or kV according to patient size. The dose-length product (DLP) was 545.45 mGy-cm. Clinical History: Pain COMPARISON: 06/14/2024 Findings: No fractures or dislocations. There is advanced degenerative changes reticulation of the odontoid process with the anterior arch of C1. There is partial fusion across the C2-C3 disc space. Remaining disc spaces are relatively well-preserved. There is left neural foraminal narrowing at C3-C4.. No prevertebral soft tissue swelling. Impression: No fracture or subluxation of the cervical spine. Reviewed, dictated and finalized at location . Head/neck CTA: Radiologist's impression: CT ANGIOGRAM NECK AND HEAD History: Altered mental status. Technique: Axial noncontrast imaging of the brain was performed. Serial spiral axial images through the head and neck were then obtained during arterial phase IV injection of 100 cc of Omnipaque 350. 3-D postprocessing and MIP images were then reconstructed on the remote workstation. Dose reduction technique was used on this scan by utilizing automated exposure control and iterative reconstruction technique. The dose-length product (DLP) was 2581.12 mGy-cm. COMPARISON: 09/27/2024 CTA neck findings: Exam somewhat degraded by motion artifact. Bilateral vertebral arteries appear patent. Bilateral common carotid, internal carotid, external carotid arteries are patent. No definite significant stenosis. No large vessel occlusion. The proximal right internal carotid artery demonstrates 0% stenosis relative to the normal distal artery lumen diameter. The proximal left internal carotid artery demonstrates 0% stenosis relative to the normal distal artery lumen diameter. Lung apices demonstrate emphysematous change. CTA head findings: Distal vertebral arteries, basilar artery, and posterior cerebral arteries are patent. Distal internal carotid arteries, middle cerebral arteries, and anterior cerebral arteries are patent. There is atherosclerotic calcification the cavernous portions of the distal internal carotid arteries, with areas of moderate to high-grade stenosis. No other stenosis evident. No large vessel occlusion. Axial noncontrast imaging of the brain demonstrates stable chronic right occipital lobe infarct. Small chronic right cerebellar infarct also noted. No acute infarct or acute intracranial hemorrhage evident, though there is mild motion artifact. Ventricles and subarachnoid spaces are stable. Paranasal sinuses and mastoid air cells are clear. Calvarium intact. Impression: Exam somewhat suboptimal due to motion artifact. No large vessel occlusion. There are probable moderate to high-grade stenoses in the cavernous portions of the distal internal carotid arteries related to atherosclerotic calcification. 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 Reviewed, dictated and finalized at location . Assessment and Plan Assessment and plan (1) Acute encephalopathy: Code(s): G93.40 - Encephalopathy, unspecified Status: Acute Assessment and Plan: * Head CT was negative for any acute findings * Brain MRI pending * Head/neck CTA was suboptimal due to artifact however did not show any large vessel occlusion, probable moderate to high-grade stenosis in the cavernous portions of the distal internal carotid arteries related to atherosclerotic calcification, chronic right occipital lobe and right cerebellar infarcts. * Sodium level was normal at 142 * Urine drug screen was negative * Alcohol level was less than 10 * Respiratory panel was negative for influenza A and B, RSV, COVID * UA obtained however no UA pending, called lab and they will run * VBG showed a pH of 7.419, pCO2 41.8 * Neurology consulted * Lactic acid 3.6 initially now down to 1.4 after fluid resuscitation * Will obtain EEG considering high anion gap metabolic acidosis, lactic acidosis, elevated troponin (2) High anion gap metabolic acidosis: Code(s): E87.29 - Other acidosis Status: Acute Assessment and Plan: * Anion gap 16, Bicarb 18 * ? Seizure activity * Continue to trend (3) Lactic acidosis: Code(s): E87.20 - Acidosis, unspecified Status: Acute Assessment and Plan: * Lactic acid was 3.6 initially and now down to 1.4 after fluid resuscitation * ? Seizure activity (4) Elevated troponin: Code(s): R79.89 - Other specified abnormal findings of blood chemistry Status: Acute Assessment and Plan: * Troponin 0.014> 0.054> 0.040 * Possibly demand ischemia versus seizure activity * Will get EEG (5) Elevated serum creatinine: Code(s): R79.89 - Other specified abnormal findings of blood chemistry Status: Acute Assessment and Plan: * creatinine 1.32 * baseline creatinine 1.24-1.32 * continue to monitor (6) Hypertension: Qualifiers: Hypertension type: primary hypertension Qualified Code(s): I10 - Essential (primary) hypertension Code(s): I10 - Essential (primary) hypertension Status: Acute Assessment and Plan: * blood pressure ranging 109/74-133/86 * unable to take po medications due to mental status. * Lisinopril on hold * continue to monitor (7) Coronary artery disease: Qualifiers: Coronary Disease-Associated Artery/Lesion type: jena artery [place] vs. 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 mellitus terminal superintendent insulin use: with long-term use Diabetes mellitus complication status: with circulatory complication Diabetes mellitus complication detail: with other circulatory complications Qualified Code(s): E11.59 - Type 2 diabetes mellitus with other circulatory complications; Z79.4 - USP (current) use of insulin Code(s): E11.9 - Type 2 diabetes mellitus without complications Status: Acute Assessment and Plan: * Blood sugars ranging 95-103 * Hgb A1C 7.4 on 07/20/2024 * Accu checks q.6 hour * Moderate dose SSI ordered * hypoglycemic protocol in place * Currently NPO due to altered mental status * Changed IV fluids to D5 NS at 100 mL/hour (9) ILANA on CPAP: Code(s): G47.33 - Obstructive sleep apnea (adult) (pediatric) Status: Chronic Assessment and Plan: * CPAP ordered for at night Quality VTE Prophylaxis VTE prophylaxis: pharmacologic ordered Hospitalist [facility] Advance Care Plan I have confirmed that the patient's Advanced Care Plan is present, code status is documented, or surrogate decision maker is listed in patient medical record.: Yes Medication Reconciliation I have utilized all available resources to obtain, update and review the patients current medications (includes all prescriptions, OTC, herbals, cannabis, and nutritional supplements).: Yes
[2024-09-28] MEDS: hydrOXYzine HCl 50 MG/ML VIAL 25 MG IM (17:44)
[2024-09-28 17:45] LABS: Add Urine Microscopic? NO; Appearance Urine Clear (Clear); Bilirubin Urine Negative (Negative); Blood Urine Negative (Negative); Color Urine Yellow (Yellow); Glucose Urine UA 3+ mg/dL (Negative); Ketones Urine 1+ mg/dL (Negative); Leukocyte Esterase Ur Negative LEU/UL (Negative); Nitrate Urine Negative (Negative); Protein Urine Negative (Negative); Specific Grav Ur > 1.045 (1.001-1.035); Urobilinogen Urine 0.2 mg/dL (<2.0); pH Urine 5.5 (5.0-9.0)
[2024-09-28 17:54] LABS: Glucose Point of Care 72 mg/dl (65-105)
[2024-09-28] MEDS: DEXTROSE 5%/0.9% SOD CHL 1,000 ML 100 ML IV CONT (17:56)
[2024-09-28] MEDS: dexmedeTOMIDine 400 MCG/100 ML 400 MCG/100 ML BAG IV CONT (21:11)
[2024-09-28 22:42] LABS: Hematocrit 37.2 % (42.0-52.0); Hemoglobin 11.8 g/dL (14.0-18.0); Mean Corpuscular HGB Conc 31.7 g/dl (32-36); Mean Corpuscular Hemoglobin 30.1 pg (26-34); Mean Corpuscular Volume 94.9 fl (80-100); Mean Platelet Volume 10.8 fl (7.4-10.4); Platelet Count Result 291 k/mm3 (150-375); Red Blood Count 3.92 M/mm3 (4.6-6.20); Red Cell Distribution Width 15.1 % (11.5-14.5); White Blood Count 12.9 K/mm3 (4.5-10.0)
[2024-09-28] MEDS: LORazepam INJ (*CRX) 2 MG/ML VIAL IV PUSH (23:00)
[2024-09-28 23:49] LABS: Alanine Aminotransferase 19 U/L (6-50); Albumin Level 4.1 g/dL (3.5-5.1); Alkaline Phosphatase 68 U/L (38-126); Anion Gap 13 mmol/L (4-12); Aspartate Amino Transferase 32 U/L (17-59); Bilirubin,Total 0.5 mg/dL (0.2-1.3); Blood Urea Nitrogen 15 mg/dL (9-20); Calcium 8.5 mg/dL (8.4-10.2); Carbon Dioxide 16 mmol/L (22-30); Chloride 110 mmol/L (98-107); Estimated CRCL calculation 66 ml/min; Estimated Glomerular Filt Rate > 60; Glucose 75 mg/dL (65-110); Potassium 3.8 mmol/L (3.4-5.0); Sodium 139 mmol/L (137-145)
[2024-09-29] VITALS (31 sets, daily range): BP systolic 108–154; BP diastolic 66–95; PULSE 50–104; RESP 14–20; TEMP 36.3–36.9; O2SAT 84–100
--- NOTE | 2024-09-29 00:30 | PC.NURSE ---
2109 patient received in ICU 3 from [facility]. Resting quietly. BLE restraints removed.
[2024-09-29] MEDS: DEXTROSE 5%/0.9% SOD CHL 1,000 ML 100 ML IV CONT (01:47)
[2024-09-29 01:58] LABS: Glucose Point of Care 78 mg/dl (65-105)
[2024-09-29] MEDS: dexmedeTOMIDine 400 MCG/100 ML 400 MCG/100 ML BAG 13.4 MCG IV CONT (02:32)
[2024-09-29 05:10] LABS: Glucose Point of Care 121 mg/dl (65-105)
[2024-09-29 05:18] LABS: Basophils Absolute Auto 0.1 K/mm3 (0.0-0.1); Basophils Percent Auto 0.6 % (0.2-1.2); Eosinophils Absolute Auto 0.2 K/mm3 (0-0.3); Eosinophils Percent Auto 2.3 % (0-4.4); Immature Granulocyte Absolute 0.03 K/mm3 (0.00-0.031); Immature Granulocyte Percent A 0.3 % (0-0.5); Lymphocytes Absolute Auto 2.22 K/mm3 (0.9-3.2); Lymphocytes Percent Auto 21.6 % (18.3-44.2); Mean Corpuscular HGB Conc 32.4 g/dl (32-36); Mean Corpuscular Hemoglobin 30.3 pg (26-34); Mean Corpuscular Volume 93.4 fl (80-100); Mean Platelet Volume 10.7 fl (7.4-10.4); Monocytes Absolute Auto 1.2 K/mm3 (0.1-0.6); Monocytes Percent Auto 11.9 % (2.6-8.5); Neutrophils Absolute Auto 6.5 K/mm3 (1.3-6.7); Neutrophils Percent Auto 63.3 % (45.5-73.1); Platelet Count Result 268 k/mm3 (150-375); Red Blood Count 3.96 M/mm3 (4.6-6.20); White Blood Count 10.3 K/mm3 (4.5-10.0)
[2024-09-29 05:29] LABS: Alanine Aminotransferase 17 U/L (6-50); Albumin Level 3.9 g/dL (3.5-5.1); Alkaline Phosphatase 63 U/L (38-126); Anion Gap 12 mmol/L (4-12); Aspartate Amino Transferase 32 U/L (17-59); Bilirubin,Total 0.4 mg/dL (0.2-1.3); Blood Urea Nitrogen 15 mg/dL (9-20); Calcium 8.3 mg/dL (8.4-10.2); Carbon Dioxide 18 mmol/L (22-30); Chloride 109 mmol/L (98-107); Estimated CRCL calculation 64 ml/min; Estimated Glomerular Filt Rate > 60; Glucose 110 mg/dL (65-110); Potassium 4.1 mmol/L (3.4-5.0); Sodium 139 mmol/L (137-145)
[2024-09-29] MEDS: AZITHROMYCIN 500 MG/NS 250 ML 500 MG/250 ML BAG 250 MG IVPB (05:47)
[2024-09-29 06:39] LABS: Magnesium 1.9 mg/dL (1.6-2.3); Phosphorus 2.9 mg/dL (2.5-4.5)
--- NOTE | 2024-09-29 07:17 | PM.EVENT ---
Event Note Event Note Event Note: Concern: Confusion/delirium, refractory to anti-psychotics and 4-way restraints. Background: Admitted 2 days ago for AMS; initial evaluation was unremarkable for acute findings Plan: Transfer to ICU for Precedex infusion Discussed with Dr. Hanson
--- NOTE | 2024-09-29 08:26 | P.CONIN_ITS ---
Assessment and Plan Assessment and plan (1) Acute encephalopathy: Code(s): G93.40 - Encephalopathy, unspecified Status: Acute Assessment and Plan: Patient presented with altered mental status, fall On the evening of 09/28, patient had moved delirium, agitation, combativeness, was placed in 4 point restraints. Patient was transferred to the ICU for possible Precedex infusion. -repeat CT scan of the brain upon arrival to the ICU: Hypodensity in the medial aspect of the left temporal lobe and occipital lobe which is highly suggestive of acute infarct. 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 Old infarct in the right cerebellar hemisphere. -patient started on rectal aspirin. Unable to take p.o. statin as he is NPO for now due to altered mental status -MRI has been ordered -neurology has been consulted -continue neuro check per protocol -maintain adequate blood pressures-allow permissive hypertension 09/27: CT brain: No acute intracranial finding 09/27: Chest x-ray shows left lower lobe atelectasis versus pneumonia 09/28: CT cervical spine: No fracture or subluxation of the cervical spine 09/28: CTA head and neck: Exam somewhat suboptimal due to motion artifact. No large vessel occlusion. 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 (2) Acute kidney injury: Code(s): N17.9 - Acute kidney failure, unspecified Status: Acute Assessment and Plan: Acute kidney injury could be related to hypovolemia, patient was adequately fluid-resuscitated -urine output has been adequate -creatinine down normal -continue IV fluids -monitor urine output, renal function electrolytes (3) Hypertension: Qualifiers: Hypertension type: primary hypertension Qualified Code(s): I10 - Essential (primary) hypertension Code(s): I10 - Essential (primary) hypertension Status: Acute Assessment and Plan: Hold all antihypertensives since patient acute stroke, will allow permissive hypertension (4) ILANA on CPAP: Code(s): G47.33 - Obstructive sleep apnea (adult) (pediatric) Status: Chronic Assessment and Plan: Obstructive sleep apnea on CPAP at night -if patient has altered mental status with avoid CPAP mask (5) Pneumonia: Qualifiers: Laterality: left Lung location: lower lobe of lung Pneumonia type: due to unspecified organism Qualified Code(s): J18.9 - Pneumonia, unspecified organism Code(s): J18.9 - Pneumonia, unspecified organism Status: Acute Assessment and Plan: Chest x-ray on admission showed left lower lobe atelectasis versus pneumonia -could be related to aspiration pneumonitis -continue azithromycin, ceftriaxone (09/28) -will add Flagyl (09/29) (6) Type 2 diabetes mellitus: Qualifiers: Diabetes mellitus intermediate accountant insulin use: with intermediate accountant use Diabetes mellitus complication status: with circulatory complication Diabetes mellitus complication detail: with other circulatory complications Qualified Code(s): E 11.59 - Type 2 diabetes mellitus with other circulatory complications; Z79.4 - USP (current) use of insulin Code(s): E11.9 - Type 2 diabetes mellitus without complications Status: Acute Assessment and Plan: Continue Accu-Cheks and sliding scale insulin (7) Seizure disorder: Code(s): G40.909 - Epilepsy, unspecified, not intractable, without status epilepticus Status: Acute Assessment and Plan: Patient takes carbamazepine 200 mg PO Q 8 hours at home -currently NPO, will start Keppra IV Plan DVT prophylaxis: Enoxaparin Stress ulcer prophylaxis: Protonix Nutrition: NPO Code Status: Full code Critical Care Time Spent: 49 minutes Due to a high probability of clinically significant, life threatening deterioration, the patient required my highest level of preparedness to intervene emergently and I personally spent this critical care time directly and personally managing the patient. This critical care time included obtaining a history; examining the patient; pulse oximetry; ordering and review of studies; arranging urgent treatment with development of a management plan; evaluation of patient's response to treatment; frequent reassessment; and discussions with other providers. It was exclusive of separately billable procedures and treating other patients and teaching time. Please see Assessment and Plan section and the rest of the note for further information on patient assessment and treatment This dictation may have been done utilizing a voice recognition system. Attempts have been made to correct errors. However, there may be uncorrected grammatical, spelling, and recognitions errors present. [employer] Consult Note Consult date: 09/29/24 Reason for consult: Acute ischemic stroke, delirium, agitation, combative behavior HPI: Baldev Qiu is a 64 year old male with past medical history of type 2 diabetes, essential hypertension, seizure disorder, history of CVA, kidney stones, coronary artery disease status post stenting CABG, obstructive sleep apnea, former smoker, GERD presented the ED on 09/27/2024 with complaints of altered mental status and a fall. According the medical records family noted that the patient was last known normal on the day of admission in the morning, even the came back home around 6:00 p.m. on the same day they noted that he was not acting right and heard him fall. Number and the ED for evaluation as he had a similar presentation when he had a previous CVA. In the ER patient was normotensive, normohermic, good O2 sats on room air. WBC 11.5, hemoglobin 12.5, platelets 3 and 18, BUN was 21 creatinine 1.32, CO2 18, troponin 0.014, 0.054, 0.040. Electrolytes were otherwise in normal limits. Urine drug screen was negative, alcohol levels were less than 10. Influenza, RSV and SARS-CoV-2 PCR was negative. 09/27: CT brain: No acute intracranial finding 09/27: Chest x-ray shows left lower lobe atelectasis versus pneumonia 09/28: CT cervical spine: No fracture or subluxation of the cervical spine 09/28: CTA head and neck: Exam somewhat suboptimal due to motion artifact. No large vessel occlusion. 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 Despite 09/28: In the evening I was called by the workers compensation examiner stating the patient was delirious, combative, agitated, confused with altered mental status. Patient had been treated with Haldol, Ativan, Zyprexa. Bilateral upper and lower extremity restraints were applied as patient was getting agitated and combative. Patient was transferred to the ICU for Precedex infusion. 09/29/2024: Patient seen and examined the ICU, remains off Precedex infusion, is awake, not alert, not oriented. Opens his eyes, is trying to pull his CPAP mask. Does not answer to questions or follow simple commands. Hemodynamically stable, on 2 L nasal cannula with adequate O2 sats. Adequate urine output, creatinine has improved. Repeat CT scan of the brain overnight after to moving to the ICU: Hypodensity in the medial aspect of the left temporal lobe and occipital lobe which is highly suggestive of acute infarct. 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 Old infarct in the right cerebellar hemisphere. Review of Systems 2 Review of Systems: ROS unobtainable: Yes unobtainable due to medical condition and unobtainable due to mental status [facility] Past Medical History Medical History Swelling of lower extremity Diabetic ulcer of right heel Osteomyelitis of toe of right foot Personal history of noncompliance with medical treatment and regimen Encounter for postoperative care ILANA on CPAP Peripheral arterial occlusive disease Diabetic foot ulcer Chronic anemia Seizure disorder Gastroesophageal reflux disease Type 2 diabetes mellitus Cerebrovascular accident (06/2021) It sounds as though he had an ischemic stroke (symptoms include vertigo and visual changes) with hemorrhagic conversion. Chronic obstructive pulmonary disease Kidney stones Hypertension Coronary artery disease Status post bifurcation stents to the LAD and diagonal in 2006, stent to the LAD for in-stent restenoses in 2009, and CABG in April 2021 at [facility]. Surgical History Surgical History History of amputation of left great toe History of amputation of right great toe 03/11/23 History of myringoplasty History of inguinal hernia repair times 2 History of coronary artery bypass graft (04/2021) Done at [facility]. History of percutaneous coronary intervention Bifurcation stents to LAD and diagonal in 2006. Stent to the LAD in 2009. (three stents) Family History Family History Mother Family history of diabetes mellitus in first degree relative Other Diabetes mellitus Hypertension Social History Social History Social History: The patient lives with his and 2 sons in [place]. His sons help him out. 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 He smoked about a pack a day for nearly 45 years and he quit at the time of his bypass in April 2021. He was a heavier drinker in his younger years. No illicit substance use. Surrogate medical decision maker: Shahrzad Qiu, . Code status: Full code. Smoking packs per day: 1.5 Smoking cigarettes per day: 30.0 Years smoked: 30 Smoking pack-years: 45.00 Smoking status: Former smoker Second hand tobacco smoke exposure: Yes Additional smoking assessment comments: Per son tries to smoke sometimes Alcohol intake: current Drinks per week: 2 Substance use: never Substance use type: does not use Do You Feel Safe in your Home?: Yes Lack of Transportation: No Lack of Food: Never True Current Housing: I Have Housing Concerned About Future Housing: No Difficulty Paying Gas/Electric Bills: No Difficulty Paying for Meds: No Currently Unemployed: No Education: High School Diploma/GED Difficulty w/ Childcare or Family Care: No Spiritual care concerns: No Meds Home Medications and Allergies Home Medications ?Medication ?Instructions ?Recorded ?Confirmed ?Type carvedilol 3.125 mg tablet (Coreg) 3.125 mg PO Q12H 09/05/21 09/28/24 History insulin glargine 100 unit/mL (3 45 unit subcut DAILY 03/11/22 09/28/24 History mL) subcutaneous pen (Lantus Solostar U-100 Insulin) atorvastatin 40 mg tablet (Lipitor) 40 mg PO DAILY #90 tabs 05/23/24 09/28/24 Rx fenofibrate 160 mg tablet 160 mg PO DAILY #90 tabs 05/23/24 09/28/24 Rx carbamazepine 200 mg tablet 200 mg PO Q8HR #90 tabs 06/22/24 09/28/24 Rx famotidine 40 mg tablet 40 mg PO DAILY #90 tabs 06/22/24 09/28/24 Rx lisinopril 5 mg tablet (Zestril) 5 mg PO DAILY #90 tabs 07/10/24 09/28/24 Rx blood sugar diagnostic (OneTouch #100 ea 08/09/24 08/09/24 Rx Verio test strips) blood-glucose meter (OneTouch #1 ea 08/09/24 08/09/24 Rx Verio Flex Start kit) empagliflozin 25 mg tablet 25 mg PO DAILY #90 tabs 08/09/24 08/09/24 Rx (Jardiance) glucagon 1 mg/0.2 mL subcutaneous 1 mg (0.2 mL) subcut ONCE #0.4 mL 08/09/24 09/28/24 Rx auto-injector (Gvoke HypoPen 2-Pack) lancets 33 gauge ([facility] 08/09/24 08/09/24 Rx Plus Lancet) aspirin 81 mg tablet,delayed 81 mg PO DAILY #90 tabs 09/26/24 09/28/24 Rx release (Adult Aspirin Regimen) empagliflozin 25 mg tablet 25 mg PO DAILY 09/28/24 09/28/24 History (Jardiance) Allergies Allergy/AdvReac Type Severity Reaction Status Date / Time metoclopramide AdvReac Mild Vomiting Verified 09/26/24 09:40 Vital Signs Vital Signs - 24 hr 09/28/24 08:50 09/28/24 12:03 09/28/24 14:40 Temperature 97.7 F Pulse Rate 81 89 Respiratory Rate 18 Blood Pressure 117/63 Pulse Oximetry 97 Oxygen Delivery Room Air Oxygen Flow Rate Fraction of Inspired Oxygen 09/28/24 16:01 09/28/24 20:00 09/28/24 20:00 Temperature Pulse Rate 81 94 Respiratory Rate Blood Pressure Pulse Oximetry Oxygen Delivery Room Air Oxygen Flow Rate Fraction of Inspired Oxygen 09/28/24 20:00 09/28/24 21:11 09/28/24 21:15 Temperature 98 F Pulse Rate 79 90 86 Respiratory Rate 15 18 18 Blood Pressure 148/67 H Pulse Oximetry 98 95 Oxygen Delivery Room Air Oxygen Flow Rate Fraction of Inspired Oxygen 09/28/24 22:00 09/28/24 22:00 09/28/24 22:55 Temperature Pulse Rate 75 65 Respiratory Rate 18 22 H Blood Pressure Pulse Oximetry 95 Oxygen Delivery Room Air Oxygen Flow Rate Fraction of Inspired Oxygen 09/28/24 23:15 09/28/24 23:45 09/29/24 00:00 Temperature 98.3 F Pulse Rate 85 65 71 Respiratory Rate 22 H 20 20 Blood Pressure 150/79 H Pulse Oximetry 85 L Oxygen Delivery Oxygen Flow Rate Fraction of Inspired Oxygen 09/29/24 00:00 09/29/24 00:00 09/29/24 00:15 Temperature Pulse Rate 70 70 72 Respiratory Rate 20 20 Blood Pressure Pulse Oximetry 84 L Oxygen Delivery CPAP Oxygen Flow Rate Fraction of Inspired Oxygen 24 09/29/24 00:15 09/29/24 00:45 09/29/24 01:00 Temperature Pulse Rate 67 67 67 Respiratory Rate 17 20 19 Blood Pressure Pulse Oximetry 90 99 Oxygen Delivery CPAP CPAP Oxygen Flow Rate Fraction of Inspired Oxygen 09/29/24 01:30 09/29/24 02:32 09/29/24 02:32 Temperature Pulse Rate 62 58 L 58 L Respiratory Rate 19 20 20 Blood Pressure Pulse Oximetry Oxygen Delivery Oxygen Flow Rate Fraction of Inspired Oxygen 09/29/24 02:40 09/29/24 04:00 09/29/24 04:00 Temperature 97.4 F L Pulse Rate 70 53 L 53 L Respiratory Rate 19 20 Blood Pressure 108/72 Pulse Oximetry 98 99 Oxygen Delivery CPAP Oxygen Flow Rate Fraction of Inspired Oxygen 09/29/24 06:00 09/29/24 06:00 09/29/24 07:58 Temperature Pulse Rate 73 57 L Respiratory Rate 18 15 Blood Pressure 108/71 Pulse Oximetry 98 97 98 Oxygen Delivery CPAP Nasal Cannula Oxygen Flow Rate 2 Fraction of Inspired Oxygen 28 Exam 2 Narrative: General: Male patient looks his stated age, trying to pull at his CPAP mask HEENT:? Pupils equal and reactive, sclera is clear Neck:? Supple Respiratory:? Clear to auscultation bilaterally, decreased at bases bilaterally with no wheezing, adequate air entry Cardiac:? S1-S2 normal, regular rate and rhythm Abdomen:? Soft, non tender, non distended, normoactive bowels Extremities:? Normal tone in upper and lower extremities, palpable pedal pulses, no edema Neuro:? Patient is awake, not alert or oriented. Moving upper extremities spontaneously, moves in lower extremities to pain stimulus. Does not answer questions or follow simple commands, tremors noted Skin:? Warm and dry Psych:? Unable to assess at this time Results Labs 09/29/24 05:08 09/29/24 05:08 Labs: Short CBC 09/28/24 09/29/24 Range/Units 22:37 05:08 WBC 12.9 H 10.3 H (4.5-10.0) K/mm3 Hgb 11.8 L 12.0 L (14.0-18.0) g/dL Hct 37.2 L 37.0 L (42.0-52.0) % Plt Count 291 268 (150-375) k/mm3 BMP 09/28/24 09/29/24 22:37 05:08 Sodium 139 139 Potassium 3.8 4.1 Chloride 110 H 109 H Carbon Dioxide 16 L 18 L BUN 15 D 15 Creatinine 1.02 1.05 Glucose 75 110 Calcium 8.5 8.3 L Cardiac Enzymes 09/28/24 Range/Units 13:11 Troponin I 0.040 H* D (0.000-0.034) ng/mL Liver Function 09/28/24 09/29/24 Range/Units 22:37 05:08 Total Bilirubin 0.5 0.4 (0.2-1.3) mg/dL AST 32 32 (17-59) U/L ALT 19 17 (6-50) U/L Alkaline Phosphatase 68 63 (38-126) U/L Albumin 4.1 3.9 (3.5-5.1) g/dL Urine 09/28/24 Range/Units 09:43 Urine Color Yellow (Yellow) Urine Appearance Clear (Clear) Urine pH 5.5 (5.0-9.0) Ur Specific [place] > 1.045 H (1.001-1.035) Urine Protein Negative (Negative) mg/dL Urine Glucose (UA) 3+ H (Negative) mg/dL Quality VTE Prophylaxis VTE prophylaxis: pharmacologic ordered Hospitalist MIPS Advance Care Plan I have confirmed that the patient's Advanced Care Plan is present, code status is documented, or surrogate decision maker is listed in patient medical record.: Yes Medication Reconciliation I have utilized all available resources to obtain, update and review the patients current medications (includes all prescriptions, OTC, herbals, cannabis, and nutritional supplements).: Yes
[2024-09-29] MEDS: ASPIRIN 300 MG SUPPOSITORY 150 MG RECTAL (09:32)
[2024-09-29] MEDS: PANTOPRAZOLE SODIUM IV 40 MG VIAL IV PUSH (09:33)
[2024-09-29] MEDS: ENOXAPARIN 40 MG/0.4 ML SYRINGE SUB-Q (09:33)
[2024-09-29] MEDS: levETIRAcetam 500MG/NACL 100ML 500 MG/100 ML BAG 400 MG IVPB ×2 (09:33→20:13)
[2024-09-29] MEDS: metroNIDAZOLE 500 MG/ISO 100ML 500 MG/100 ML BAG 100 MG IVPB ×2 (09:34→17:17)
[2024-09-29 10:03] LABS: Glucose Point of Care 102 mg/dl (65-105)
--- NOTE | 2024-09-29 10:06 | P.CONNEU_ITS ---
Assessment and Plan Assessment and plan (1) Altered mental status: Code(s): R41.82 - Altered mental status, unspecified Status: Acute (2) History of CVA (cerebrovascular accident): Code(s): Z86.73 - Personal history of transient ischemic attack (TIA), and cerebral infarction without residual deficits Status: Acute Plan 1. Diabetes mellitus 2. Changes in the mental status subsequent to the fall resulting in the agitation and combativeness but CT scan negative for any intracranial bleed. An MRI at this stage is pending need to look for any new stroke. Considering the CT scan is negative for the bleed and does not look acutely febrile will continue the treatment as such, obtained a routine EEG just to Document nonconvulsive status. Will not start the anticonvulsant at this stage. in the meantime continue the treatment as such. If patient becomes delirious and combative we can use Zyprexa 2.5mg p.o. or IM depending on the situation q.12 hours. Consult date: 09/29/24 HPI: Baldev Qiu is a 64 year old male Has been admitted to the hospital through the emergency room for the complaints of change in mental status with him being seen last normal by the family in the morning and subsequently abnormal on the visit at 6:00 p.m. patient does have a history of cerebrovascular accident in the past and on initial evaluation in the emergency room he was confused not answering questions appropriately. His medications were listed carvedilol 3.125mg q.12 hours ,insulin 45units subQ at night, he is known to be allergic to metoclopramide, and in the past he has history of diabetes mellitus with ulcer of the right heel, osteomyelitis of the right foot toe, obstructive sleep apnea, peripheral vascular disease, chronic anemia, and seizure disorder, in addition to the history of stroke in June of 2021, chronic renal disease, he has undergone amputation of left greater toe and right great toe in addition to the coronary artery bypass grafting and subsequently coronary intervention percutaneously as well, he smokes 1 and half packs per day for 30 years quit smoking years of 30 currently some day smoker, does not drink alcohol, initial evaluation in the emergency room no gross focal deficit documented but definitely alert and confused vital signs normal, CBC normal, BMP normal, complete lab negative, negative for influenza a B RSV and SARs COVID, initial CT of the head with hypodensity in the medial aspect with left temporal lobe and occipital lobe suggestive highly of acute infarct in addition documented old infarcts in the right medial temporal lobe and occipital lobe , CTA suboptimal due to the motion artifact documented chronic right occipital lobe and cerebellar infarct and suggesting moderate to high-grade stenosis in the cavernous portion of the distal internal carotid artery, MRI at this stage pending. Receiving aspirin 81mg daily, atorvastatin 40mg daily, carvedilol 3. 125mg q.12 hours, Jardiance 25mg daily, and insulin 45units subQ daily in addition to carbamazepine 200mg Q 8hours. Review of Systems 2 Review of Systems: All systems reviewed & are unremarkable except as noted in HPI and below PMFSH Past Medical History Medical History Swelling of lower extremity Diabetic ulcer of right heel Osteomyelitis of toe of right foot Personal history of noncompliance with medical treatment and regimen Encounter for postoperative care ILANA on CPAP Peripheral arterial occlusive disease Diabetic foot ulcer Chronic anemia Seizure disorder Gastroesophageal reflux disease Type 2 diabetes mellitus Cerebrovascular accident (06/2021) It sounds as though he had an ischemic stroke (symptoms include vertigo and visual changes) with hemorrhagic conversion. Chronic obstructive pulmonary disease Kidney stones Hypertension Coronary artery disease Status post bifurcation stents to the LAD and diagonal in 2006, stent to the LAD for in-stent restenoses in 2009, and CABG in April 2021 at [facility]. Surgical History Surgical History History of amputation of left great toe History of amputation of right great toe 03/11/23 History of myringoplasty History of inguinal hernia repair times 2 History of coronary artery bypass graft (04/2021) Done at [facility]. History of percutaneous coronary intervention Bifurcation stents to LAD and diagonal in 2006. Stent to the LAD in 2009. (three stents) Family History Family History Mother Family history of diabetes mellitus in first degree relative Other Diabetes mellitus Hypertension Social History Social History Social History: The patient lives with his and 2 sons in [place]. His sons help him out. 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 He smoked about a pack a day for nearly 45 years and he quit at the time of his bypass in April 2021. He was a heavier drinker in his younger years. No illicit substance use. Surrogate medical decision maker: Shahrzad Qiu, . Code status: Full code. Smoking packs per day: 1.5 Smoking cigarettes per day: 30.0 Years smoked: 30 Smoking pack-years: 45.00 Smoking status: Former smoker Second hand tobacco smoke exposure: Yes Additional smoking assessment comments: Per son tries to smoke sometimes Alcohol intake: current Drinks per week: 2 Substance use: never Substance use type: does not use Do You Feel Safe in your Home?: Yes Lack of Transportation: No Lack of Food: Never True Current Housing: I Have Housing Concerned About Future Housing: No Difficulty Paying Gas/Electric Bills: No Difficulty Paying for Meds: No Currently Unemployed: No Education: High School Diploma/GED Difficulty w/ Childcare or Family Care: No Spiritual care concerns: No Meds Home Medications and Allergies Home Medications ?Medication ?Instructions ?Recorded ?Confirmed ?Type carvedilol 3.125 mg tablet (Coreg) 3.125 mg PO Q12H 09/05/21 09/28/24 History insulin glargine 100 unit/mL (3 45 unit subcut DAILY 03/11/22 09/28/24 History mL) subcutaneous pen (Lantus Solostar U-100 Insulin) atorvastatin 40 mg tablet (Lipitor) 40 mg PO DAILY #90 tabs 05/23/24 09/28/24 Rx fenofibrate 160 mg tablet 160 mg PO DAILY #90 tabs 05/23/24 09/28/24 Rx carbamazepine 200 mg tablet 200 mg PO Q8HR #90 tabs 06/22/24 09/28/24 Rx famotidine 40 mg tablet 40 mg PO DAILY #90 tabs 06/22/24 09/28/24 Rx lisinopril 5 mg tablet (Zestril) 5 mg PO DAILY #90 tabs 07/10/24 09/28/24 Rx blood sugar diagnostic (OneTouch #100 ea 08/09/24 08/09/24 Rx Verio test strips) blood-glucose meter (OneTouch #1 ea 08/09/24 08/09/24 Rx Verio Flex Start kit) empagliflozin 25 mg tablet 25 mg PO DAILY #90 tabs 08/09/24 08/09/24 Rx (Jardiance) glucagon 1 mg/0.2 mL subcutaneous 1 mg (0.2 mL) subcut ONCE #0.4 mL 08/09/24 09/28/24 Rx auto-injector (Gvoke HypoPen 2-Pack) lancets 33 gauge (Huseyin Wahl #100 ea 08/09/24 08/09/24 Rx Plus Lancet) aspirin 81 mg tablet,delayed 81 mg PO DAILY #90 tabs 09/26/24 09/28/24 Rx release (Adult Aspirin Regimen) empagliflozin 25 mg tablet 25 mg PO DAILY 09/28/24 09/28/24 History (Jardiance) Allergies Allergy/AdvReac Type Severity Reaction Status Date / Time metoclopramide AdvReac Mild Vomiting Verified 09/26/24 09:40 Vital Signs Vital Signs - 24 hr 09/28/24 12:03 09/28/24 14:40 09/28/24 16:01 Temperature 36.5 C Pulse Rate 81 89 81 Respiratory Rate 18 Blood Pressure 117/63 Pulse Oximetry 97 Oxygen Delivery Oxygen Flow Rate Fraction of Inspired Oxygen 09/28/24 20:00 09/28/24 20:00 09/28/24 20:00 Temperature 36.6 C Pulse Rate 94 79 Respiratory Rate 15 Blood Pressure 148/67 H Pulse Oximetry 98 Oxygen Delivery Room Air Oxygen Flow Rate Fraction of Inspired Oxygen 09/28/24 21:11 09/28/24 21:15 09/28/24 22:00 Temperature Pulse Rate 90 86 75 Respiratory Rate 18 18 18 Blood Pressure Pulse Oximetry 95 Oxygen Delivery Room Air Oxygen Flow Rate Fraction of Inspired Oxygen 09/28/24 22:00 09/28/24 22:55 09/28/24 23:15 Temperature Pulse Rate 65 85 Respiratory Rate 22 H 22 H Blood Pressure Pulse Oximetry 95 Oxygen Delivery Room Air Oxygen Flow Rate Fraction of Inspired Oxygen 09/28/24 23:45 09/29/24 00:00 09/29/24 00:00 Temperature 36.8 C Pulse Rate 65 71 70 Respiratory Rate 20 20 Blood Pressure 150/79 H Pulse Oximetry 85 L Oxygen Delivery Oxygen Flow Rate Fraction of Inspired Oxygen 09/29/24 00:00 09/29/24 00:15 09/29/24 00:15 Temperature Pulse Rate 70 72 67 Respiratory Rate 20 20 17 Blood Pressure Pulse Oximetry 84 L 90 Oxygen Delivery CPAP CPAP Oxygen Flow Rate Fraction of Inspired Oxygen 24 09/29/24 00:45 09/29/24 01:00 09/29/24 01:30 Temperature Pulse Rate 67 67 62 Respiratory Rate 20 19 19 Blood Pressure Pulse Oximetry 99 Oxygen Delivery CPAP Oxygen Flow Rate Fraction of Inspired Oxygen 09/29/24 02:32 09/29/24 02:32 09/29/24 02:40 Temperature Pulse Rate 58 L 58 L 70 Respiratory Rate 20 20 19 Blood Pressure Pulse Oximetry 98 Oxygen Delivery CPAP Oxygen Flow Rate Fraction of Inspired Oxygen 09/29/24 02:45 09/29/24 03:15 09/29/24 03:45 Temperature Pulse Rate 56 L 55 L 54 L Respiratory Rate 20 19 19 Blood Pressure Pulse Oximetry Oxygen Delivery Oxygen Flow Rate Fraction of Inspired Oxygen 09/29/24 04:00 09/29/24 04:00 09/29/24 04:00 Temperature 36.3 C L Pulse Rate 53 L 53 L 53 L Respiratory Rate 20 20 Blood Pressure 108/72 Pulse Oximetry 99 99 Oxygen Delivery CPAP Oxygen Flow Rate Fraction of Inspired Oxygen 24 09/29/24 04:00 09/29/24 06:00 09/29/24 06:00 Temperature Pulse Rate 53 L 73 57 L Respiratory Rate 20 18 15 Blood Pressure 108/71 Pulse Oximetry 98 97 Oxygen Delivery CPAP Oxygen Flow Rate Fraction of Inspired Oxygen 09/29/24 06:00 09/29/24 07:58 09/29/24 08:00 Temperature 36.8 C Pulse Rate 57 L 84 Respiratory Rate 15 20 Blood Pressure 130/75 Pulse Oximetry 98 93 Oxygen Delivery Nasal Cannula Oxygen Flow Rate 2 Fraction of Inspired Oxygen 28 Exam 2 Narrative: Exam this morning revealed him to be awake alert disoriented in time and not extremely communicated but at times randomly follows the instruction. Head normocephalic with no bruit, ear nose throat examination normal, neck supple no bruits, heart regular with no murmur, lungs clear abdomen soft neurologically he is awake alert not following all the verbal commands appropriately and keep asking who are you his speech is not dysarthric pupils round regular feels the vision could not be reliably check does not follow the instruction and extraocular movements are spontaneously full but without any nystagmus face symmetric motor examination revealed him to have ability to move both upper and lower extremities ,there is no obvious evidence of ataxia in upper extremities. Results Labs 09/29/24 05:08 09/29/24 05:08 Labs: Short CBC 09/28/24 09/29/24 Range/Units 22:37 05:08 WBC 12.9 H 10.3 H (4.5-10.0) K/mm3 Hgb 11.8 L 12.0 L (14.0-18.0) g/dL Hct 37.2 L 37.0 L (42.0-52.0) % Plt Count 291 268 (150-375) k/mm3 BMP 09/28/24 09/29/24 22:37 05:08 Sodium 139 139 Potassium 3.8 4.1 Chloride 110 H 109 H Carbon Dioxide 16 L 18 L BUN 15 D 15 Creatinine 1.02 1.05 Glucose 75 110 Calcium 8.5 8.3 L Cardiac Enzymes 09/28/24 Range/Units 13:11 Troponin I 0.040 H* D (0.000-0.034) ng/mL Liver Function 09/28/24 09/29/24 Range/Units 22:37 05:08 Total Bilirubin 0.5 0.4 (0.2-1.3) mg/dL AST 32 32 (17-59) U/L ALT 19 17 (6-50) U/L Alkaline Phosphatase 68 63 (38-126) U/L Albumin 4.1 3.9 (3.5-5.1) g/dL Urine 09/28/24 Range/Units 09:43 Urine Color Yellow (Yellow) Urine Appearance Clear (Clear) Urine pH 5.5 (5.0-9.0) Ur Specific Gregory > 1.045 H (1.001-1.035) Urine Protein Negative (Negative) mg/dL Urine Glucose (UA) 3+ H (Negative) mg/dL
--- NOTE | 2024-09-29 10:43 | PC.NURSE ---
Patient moved to ICU room 8. Patient oriented to room. All belongings brought with patient to receiving room.
[2024-09-29] MEDS: LACTATED RINGERS 1,000 ML 75 ML IV CONT (10:47)
[2024-09-29 11:10] LABS: Glucose Point of Care 93 mg/dl (65-105)
[2024-09-29 12:25] LABS: Add Urine Microscopic? NO; Appearance Urine Clear (Clear); Bilirubin Urine Negative (Negative); Blood Urine Negative (Negative); Color Urine Yellow (Yellow); Glucose Urine UA 3+ mg/dL (Negative); Ketones Urine 1+ mg/dL (Negative); Leukocyte Esterase Ur Negative LEU/UL (Negative); Nitrate Urine Negative (Negative); Protein Urine Negative (Negative); Specific Grav Ur 1.028 (1.001-1.035); Urobilinogen Urine 0.2 mg/dL (<2.0); pH Urine 5.5 (5.0-9.0)
--- NOTE | 2024-09-29 12:51 | PM.IMPN ---
Progress Note: A&P Assessment and Plan (1) Acute encephalopathy: Code(s): G93.40 - Encephalopathy, unspecified Status: Acute Assessment and Plan: Patient presented with altered mental status and fall. VBG 7.42/42/27 on 1L. Cr 1.32, serum bicarb 18 (AG 16), Lactic 3.6, PCT 0.1 and elevated Trop. UDS negative. Head CT showing old CVAs but no acute process. Cervical spine CT showing no fracture or subluxation. 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 Patient was admitted but on the evening of 09/28, he had delirium, agitation, combativeness, was placed in 4 point restraints. Patient was transferred to the ICU for possible Precedex infusion. Repeat Head CT showing a hypodensity in the medial aspect of the left temporal lobe and occipital lobe which is highly suggestive of acute infarct. Consider acute CVA. Consider seizure given the elevated lactic and other findings. Brain MR ordered. Patient started on rectal aspirin. Unable to take p.o. statin as he is NPO for now due to altered mental status Neurology has been consulted Precedex started. Monitor closely in ICU (2) Acute kidney injury: Code(s): N17.9 - Acute kidney failure, unspecified Status: Acute Assessment and Plan: Patient with a mild [place]. Cr 1.32 on admission. [place] related to hypovolemia. Patient was adequately fluid-resuscitated. Cr normal now. Monitor urine output, renal function and electrolytes (3) Pneumonia: Qualifiers: Laterality: left Lung location: lower lobe of lung Pneumonia type: due to unspecified organism Qualified Code(s): J18.9 - Pneumonia, unspecified organism Code(s): J18.9 - Pneumonia, unspecified organism Status: Acute Assessment and Plan: Chest x-ray on admission showed left lower lobe atelectasis versus pneumonia Could be related to aspiration pneumonitis Started on azithromycin, ceftriaxone (09/28) Flagyl added (09/29) (4) Hypertension: Qualifiers: Hypertension type: primary hypertension Qualified Code(s): I10 - Essential (primary) hypertension Code(s): I10 - Essential (primary) hypertension Status: Acute Assessment and Plan: Hold all antihypertensives since patient acute stroke Allow for permissive hypertension (5) ILANA on CPAP: Code(s): G47.33 - Obstructive sleep apnea (adult) (pediatric) Status: Chronic Assessment and Plan: Obstructive sleep apnea on CPAP at night Hold off on CPAP until patient is more awake and alert. VBG noted. (6) Type 2 diabetes mellitus: Qualifiers: Diabetes mellitus complication detail: with other circulatory complications Diabetes mellitus complication status: with circulatory complication Diabetes mellitus terminal clerk insulin use: with intermediate use Qualified Code(s): E11.59 - Type 2 diabetes mellitus with other circulatory complications; Z79.4 - long-term (current) use of insulin Code(s): E11.9 - Type 2 diabetes mellitus without complications Status: Acute Assessment and Plan: The patient's blood glucose was reviewed on 09/29 Glucose remains well controlled. Continue AccuCheks covering with sliding scale. Hypoglycemia protocol available as needed. Continue to monitor (7) Seizure disorder: Code(s): G40.909 - Epilepsy, unspecified, not intractable, without status epilepticus Status: Acute Assessment and Plan: Consider seizure prior to admission. Patient takes carbamazepine 200 mg PO Q 8 hours at home Currently NPO Keppra IV started Follow. Seizure precautions. Plan DVT prophylaxis: Enoxaparin Code Status: Full code Subjective Date/time seen: 09/29/24 12:51 Interval history: 64yo male with DM, seizure disorder, CVA, kidney stones, HTN, CAD s/p stent placement and CABG, ILANA, former smoker who presented to the hospital with altered mental status and fall. More awake but confused. Hx unreliable. Chart reveiwed and discussed with inspector electromechanical. Patient was swinging at staff prompting being moved to ICU Review of Systems Review of Systems: ROS unobtainable: Yes unobtainable due to mental status Exam Narrative: AF 97.6 126/85 83 20 100% ra Gen - NARD Chest - bibasilar crackles, CV - RRR S1/S2. Tele showing no signicant dysrhythmias Abd - Soft, no apparent tenderness. Ext - No pedal edema Neuro - Alert but confused. Mumbled speech. Follows commands at times. Able to OLEA. Psych - calm, occasionally cooperative Skin - Warm and dry Objective Data Vital Signs Vital Signs: Vital Signs - 24 hr 09/28/24 14:40 09/28/24 16:01 09/28/24 20:00 Temperature 97.7 F Pulse Rate 89 81 Respiratory Rate 18 Blood Pressure 117/63 Pulse Oximetry 97 Oxygen Delivery Room Air Oxygen Flow Rate Fraction of Inspired Oxygen 09/28/24 20:00 09/28/24 20:00 09/28/24 21:11 Temperature 98 F Pulse Rate 94 79 90 Respiratory Rate 15 18 Blood Pressure 148/67 H Pulse Oximetry 98 Oxygen Delivery Oxygen Flow Rate Fraction of Inspired Oxygen 09/28/24 21:15 09/28/24 22:00 09/28/24 22:00 Temperature Pulse Rate 86 75 Respiratory Rate 18 18 Blood Pressure Pulse Oximetry 95 95 Oxygen Delivery Room Air Room Air Oxygen Flow Rate Fraction of Inspired Oxygen 09/28/24 22:55 09/28/24 23:15 09/28/24 23:45 Temperature Pulse Rate 65 85 65 Respiratory Rate 22 H 22 H 20 Blood Pressure Pulse Oximetry Oxygen Delivery Oxygen Flow Rate Fraction of Inspired Oxygen 09/29/24 00:00 09/29/24 00:00 09/29/24 00:00 Temperature 98.3 F Pulse Rate 71 70 70 Respiratory Rate 20 20 Blood Pressure 150/79 H Pulse Oximetry 85 L 84 L Oxygen Delivery CPAP Oxygen Flow Rate Fraction of Inspired Oxygen 24 09/29/24 00:15 09/29/24 00:15 09/29/24 00:45 Temperature Pulse Rate 72 67 67 Respiratory Rate 20 17 20 Blood Pressure Pulse Oximetry 90 99 Oxygen Delivery CPAP CPAP Oxygen Flow Rate Fraction of Inspired Oxygen 09/29/24 01:00 09/29/24 01:30 09/29/24 02:32 Temperature Pulse Rate 67 62 58 L Respiratory Rate 19 19 20 Blood Pressure Pulse Oximetry Oxygen Delivery Oxygen Flow Rate Fraction of Inspired Oxygen 09/29/24 02:32 09/29/24 02:40 09/29/24 02:45 Temperature Pulse Rate 58 L 70 56 L Respiratory Rate 20 19 20 Blood Pressure Pulse Oximetry 98 Oxygen Delivery CPAP Oxygen Flow Rate Fraction of Inspired Oxygen 09/29/24 03:15 09/29/24 03:45 09/29/24 04:00 Temperature Pulse Rate 55 L 54 L 53 L Respiratory Rate 19 19 Blood Pressure Pulse Oximetry Oxygen Delivery Oxygen Flow Rate Fraction of Inspired Oxygen 09/29/24 04:00 09/29/24 04:00 09/29/24 04:00 Temperature 97.4 F L Pulse Rate 53 L 53 L 53 L Respiratory Rate 20 20 20 Blood Pressure 108/72 Pulse Oximetry 99 99 Oxygen Delivery CPAP Oxygen Flow Rate Fraction of Inspired Oxygen 24 09/29/24 06:00 09/29/24 06:00 09/29/24 06:00 Temperature Pulse Rate 73 57 L 57 L Respiratory Rate 18 15 15 Blood Pressure 108/71 Pulse Oximetry 98 97 Oxygen Delivery CPAP Oxygen Flow Rate Fraction of Inspired Oxygen 09/29/24 07:58 09/29/24 08:00 09/29/24 08:00 Temperature 98.3 F Pulse Rate 84 Respiratory Rate 20 Blood Pressure 130/75 Pulse Oximetry 98 93 100 Oxygen Delivery Nasal Cannula Nasal Cannula Oxygen Flow Rate 2 2 Fraction of Inspired Oxygen 28 09/29/24 08:00 09/29/24 10:00 09/29/24 10:00 Temperature Pulse Rate 87 79 83 Respiratory Rate 20 Blood Pressure 126/85 Pulse Oximetry 97 Oxygen Delivery Oxygen Flow Rate Fraction of Inspired Oxygen 09/29/24 10:09 09/29/24 11:07 Temperature 97.6 F Pulse Rate Respiratory Rate Blood Pressure Pulse Oximetry 100 Oxygen Delivery Nasal Cannula Oxygen Flow Rate 2 Fraction of Inspired Oxygen 28 Intake/Output Intake/Output: Intake & Output 09/26/24 09/27/24 09/28/24 09/29/24 23:59 23:59 23:59 23:59 Intake Total 1033.5 2248.0 Output Total 200 300 Balance 833.5 1948.0 Meds/Results Medications: Active Medications Generic Name Dose Route Start Last Admin Trade Name Hansq PRN Reason Stop Dose Admin Acetaminophen 650 mg 09/28/24 17:51 Acetaminophen 325 Mg Tablet PO Q4H PRN Mild Pain (1-3) or Fever Aspirin 150 mg 09/29/24 09:00 09/29/24 09:32 Aspirin 300 Mg Suppository RECTAL 150 mg DAILY LEAH Administration Dextrose 12.5 gm 09/28/24 17:37 Dextrose 50% 25 Gm/50 Ml Syringe IV PUSH PRN PRN Hypoglycemia Protocol Enoxaparin Sodium 40 mg 09/29/24 09:00 09/29/24 09:33 Enoxaparin 40 Mg/0.4 Ml Syringe SUB-Q 40 mg DAILY LEAH Administration Glucagon 1 mg 09/28/24 17:37 Glucagon For Inj 1 Mg Vial IM PRN PRN Hypoglycemia Protocol Glucose 15 gm 09/28/24 17:37 Glucose Oral Gel 15 Gm Of Glucse In 37.5 Gm Tube PO PRN PRN Hypoglycemia Protocol Azithromycin 500 mg in 250 mls @ 250 mls/hr 09/29/24 06:00 09/29/24 06:50 Zithromax IVPB Infused Q24H LEAH Infusion Ceftriaxone Sodium 1 gm in 50 mls @ 100 mls/hr 09/29/24 05:00 09/29/24 06:20 Rocephin 1 Gm/Ns 50 Ml IVPB Infused Q24H LEAH Infusion Dextrose 1,000 mls @ 100 mls/hr 09/28/24 17:37 Dextrose 5% 1,000 Ml IVPB PRN PRN Hypoglycemia Protocol Levetiracetam 500 mg in 100 mls @ 400 mls/hr 09/29/24 09:00 09/29/24 09:48 Keppra Iv IVPB Infused Q12HR LEAH Infusion Metronidazole 500 mg in 100 mls @ 100 mls/hr 09/29/24 10:00 09/29/24 10:34 Flagyl 500 Mg/Iso Soln 100 Ml IVPB Infused Q8H LEAH Infusion Lactated Ringer's 1,000 mls @ 75 mls/hr 09/29/24 10:10 09/29/24 10:47 Lr - Lactated Ringers Iv IV CONT 75 mls/hr .[id number] LEAH Administration Insulin Aspart 3 - 6 units 09/28/24 18:00 09/29/24 11:22 Insulin Aspart (*Bkc) 100 Units/Ml SUB-Q Not Given Q6HR [facility] Protocol Ondansetron HCl 4 mg 09/28/24 17:51 Ondansetron Inj 4 Mg/2 Ml Vial IV PUSH Q6H PRN Nausea And Vomiting Pantoprazole Sodium 40 mg 09/30/24 09:00 Pantoprazole Sodium Iv 40 Mg Vial IV PUSH QAM [facility] Radiology Results: ITS Impressions Chest X-Ray 09/27/24 23:37 IMPRESSION: Left lower lobe atelectasis versus pneumonia. Cervical Spine CT 09/28/24 05:41 Impression: No fracture or subluxation of the cervical spine. Head/Neck CTA 09/28/24 05:42 Impression: Exam somewhat suboptimal due to motion artifact. No large vessel occlusion. There are probable moderate to high-grade stenoses in the cavernous portions of the distal internal carotid arteries related to atherosclerotic calcification. 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 Head CT 09/28/24 23:16 IMPRESSION: Hypodensity in the medial aspect of the left temporal lobe and occipital lobe which is highly suggestive of acute infarct. MRI evaluation advised. 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 Old infarct in the right cerebellar hemisphere. Carotid Doppler Study 09/29/24 12:29 Impression: Limited evaluation. Within the limitations of the examination, no sonographic evidence of flow-limiting stenosis in carotid arteries. Labs Labs: Laboratory Results - last 24 hr 09/28/24 09/28/24 09/28/24 09:43 13:11 17:52 WBC RBC Hgb Hct MCV MCH MCHC RDW Plt Count MPV Immature Gran % (Auto) Neut % (Auto) Lymph % (Auto) [place] % (Auto) Eos % (Auto) Baso % (Auto) Lymph # (Auto) [place] # (Auto) Eos # (Auto) Baso # (Auto) Abs Immat Gran (auto) Absolute Neuts (auto) Absolute Nucleated RBC Nucleated RBC % Sodium Potassium Chloride Carbon Dioxide Anion Gap BUN Creatinine Estim Creat Clear Calc Estimated GFR Glucose POC Capillary Glucose 72 Calcium Phosphorus Magnesium Total Bilirubin AST ALT Alkaline Phosphatase Troponin I 0.040 H* D Total Protein Albumin Urine Color Yellow Urine Appearance Clear Urine pH 5.5 Ur Specific [place] > 1.045 H Urine Protein Negative Urine Glucose (UA) 3+ H Urine Ketones 1+ H Ur Blood (Man) Negative Urine Nitrate Negative Urine Bilirubin Negative Urine Urobilinogen 0.2 Leukocyte Esterase Rfl Negative 09/28/24 09/29/24 09/29/24 22:37 01:18 04:31 WBC 12.9 H RBC 3.92 L Hgb 11.8 L Hct 37.2 L MCV 94.9 MCH 30.1 MCHC 31.7 L RDW 15.1 H Plt Count 291 MPV 10.8 H Immature Gran % (Auto) Neut % (Auto) Lymph % (Auto) [place] % (Auto) Eos % (Auto) Baso % (Auto) Lymph # (Auto) [place] # (Auto) Eos # (Auto) Baso # (Auto) Abs Immat Gran (auto) Absolute Neuts (auto) Absolute Nucleated RBC Nucleated RBC % Sodium 139 Potassium 3.8 Chloride 110 H Carbon Dioxide 16 L Anion Gap 13 H BUN 15 D Creatinine 1.02 Estim Creat Clear Calc 66 Estimated GFR > 60 Glucose 75 POC Capillary Glucose 78 121 H Calcium 8.5 Phosphorus Magnesium Total Bilirubin 0.5 AST 32 ALT 19 Alkaline Phosphatase 68 Troponin I Total Protein 8.0 Albumin 4.1 Urine Color Urine Appearance Urine pH Ur Specific [place] Urine Protein Urine Glucose (UA) Urine Ketones Ur Blood (Man) Urine Nitrate Urine Bilirubin Urine Urobilinogen Leukocyte Esterase Rfl 09/29/24 09/29/24 09/29/24 05:05 05:08 09:59 WBC 10.3 H RBC 3.96 L Hgb 12.0 L Hct 37.0 L MCV 93.4 MCH 30.3 MCHC 32.4 RDW 15.0 H Plt Count 268 MPV 10.7 H Immature Gran % (Auto) 0.3 Neut % (Auto) 63.3 Lymph % (Auto) 21.6 [place] % (Auto) 11.9 H Eos % (Auto) 2.3 Baso % (Auto) 0.6 Lymph # (Auto) 2.22 [place] # (Auto) 1.2 H Eos # (Auto) 0.2 Baso # (Auto) 0.1 Abs Immat Gran (auto) 0.03 Absolute Neuts (auto) 6.5 Absolute Nucleated RBC 0.000 Nucleated RBC % 0.0 Sodium 139 Potassium 4.1 Chloride 109 H Carbon Dioxide 18 L Anion Gap 12 BUN 15 Creatinine 1.05 Estim Creat Clear Calc 64 Estimated GFR > 60 Glucose 110 POC Capillary Glucose 102 Calcium 8.3 L Phosphorus 2.9 Magnesium 1.9 Total Bilirubin 0.4 AST 32 ALT 17 Alkaline Phosphatase 63 Troponin I Total Protein 7.0 Albumin 3.9 Urine Color Urine Appearance Urine pH Ur Specific [place] Urine Protein Urine Glucose (UA) Urine Ketones Ur Blood (Man) Urine Nitrate Urine Bilirubin Urine Urobilinogen Leukocyte Esterase Rfl 09/29/24 09/29/24 11:07 12:17 WBC RBC Hgb Hct MCV MCH MCHC RDW Plt Count MPV Immature Gran % (Auto) Neut % (Auto) Lymph % (Auto) [place] % (Auto) Eos % (Auto) Baso % (Auto) Lymph # (Auto) [place] # (Auto) Eos # (Auto) Baso # (Auto) Abs Immat Gran (auto) Absolute Neuts (auto) Absolute Nucleated RBC Nucleated RBC % Sodium Potassium Chloride Carbon Dioxide Anion Gap BUN Creatinine Estim Creat Clear Calc Estimated GFR Glucose POC Capillary Glucose 93 Calcium Phosphorus Magnesium Total Bilirubin AST ALT Alkaline Phosphatase Troponin I Total Protein Albumin Urine Color Yellow Urine Appearance Clear Urine pH 5.5 Ur Specific [place] 1.028 Urine Protein Negative Urine Glucose (UA) 3+ H Urine Ketones 1+ H Ur Blood (Man) Negative Urine Nitrate Negative Urine Bilirubin Negative Urine Urobilinogen 0.2 Leukocyte Esterase Rfl Negative
[2024-09-29] MEDS: dexmedeTOMIDine 400 MCG/100 ML 400 MCG/100 ML BAG IV CONT (13:05)
[2024-09-29 17:49] LABS: Glucose Point of Care 85 mg/dl (65-105)
[2024-09-29 23:18] LABS: Glucose Point of Care 90 mg/dl (65-105)
[2024-09-30] VITALS (32 sets, daily range): BP systolic 102–160; BP diastolic 64–86; PULSE 49–87; RESP 13–29; TEMP 36.4–36.8; O2SAT 92–98
[2024-09-30] MEDS: LACTATED RINGERS 1,000 ML 75 ML IV CONT ×2 (00:51→13:47)
[2024-09-30] MEDS: metroNIDAZOLE 500 MG/ISO 100ML 500 MG/100 ML BAG 100 MG IVPB ×3 (01:12→17:10)
[2024-09-30] MEDS: dexmedeTOMIDine 400 MCG/100 ML 400 MCG/100 ML BAG 9.08 MCG IV CONT ×2 (01:12→07:25)
[2024-09-30 05:07] LABS: Basophils Absolute Auto 0.1 K/mm3 (0.0-0.1); Basophils Percent Auto 0.5 % (0.2-1.2); Eosinophils Absolute Auto 0.4 K/mm3 (0-0.3); Eosinophils Percent Auto 3.8 % (0-4.4); Hematocrit 39.6 % (42.0-52.0); Hemoglobin 13.1 g/dL (14.0-18.0); Immature Granulocyte Absolute 0.03 K/mm3 (0.00-0.031); Immature Granulocyte Percent A 0.3 % (0-0.5); Lymphocytes Absolute Auto 1.41 K/mm3 (0.9-3.2); Lymphocytes Percent Auto 14.1 % (18.3-44.2); Mean Corpuscular HGB Conc 33.1 g/dl (32-36); Mean Corpuscular Hemoglobin 30.3 pg (26-34); Mean Corpuscular Volume 91.7 fl (80-100); Mean Platelet Volume 10.9 fl (7.4-10.4); Monocytes Absolute Auto 1.1 K/mm3 (0.1-0.6); Monocytes Percent Auto 10.8 % (2.6-8.5); Neutrophils Absolute Auto 7.1 K/mm3 (1.3-6.7); Neutrophils Percent Auto 70.5 % (45.5-73.1); Platelet Count Result 268 k/mm3 (150-375); Red Blood Count 4.32 M/mm3 (4.6-6.20); Red Cell Distribution Width 14.5 % (11.5-14.5)
[2024-09-30 05:25] LABS: Alanine Aminotransferase 20 U/L (6-50); Alkaline Phosphatase 62 U/L (38-126); Anion Gap 12 mmol/L (4-12); Aspartate Amino Transferase 31 U/L (17-59); Bilirubin,Total 0.5 mg/dL (0.2-1.3); Blood Urea Nitrogen 13 mg/dL (9-20); Calcium 8.6 mg/dL (8.4-10.2); Carbon Dioxide 17 mmol/L (22-30); Chloride 107 mmol/L (98-107); Estimated CRCL calculation 80 ml/min; Estimated Glomerular Filt Rate > 60; Glucose 103 mg/dL (65-110); Magnesium 1.8 mg/dL (1.6-2.3); Phosphorus 2.5 mg/dL (2.5-4.5); Sodium 136 mmol/L (137-145)
[2024-09-30] MEDS: AZITHROMYCIN 500 MG/NS 250 ML 500 MG/250 ML BAG 250 MG IVPB (05:41)
[2024-09-30] MEDS: PANTOPRAZOLE SODIUM IV 40 MG VIAL IV PUSH (08:44)
[2024-09-30] MEDS: ENOXAPARIN 40 MG/0.4 ML SYRINGE SUB-Q (08:44)
[2024-09-30] MEDS: ASPIRIN 300 MG SUPPOSITORY 150 MG RECTAL (08:44)
[2024-09-30] MEDS: levETIRAcetam 500MG/NACL 100ML 500 MG/100 ML BAG 400 MG IVPB ×2 (08:45→20:14)
--- NOTE | 2024-09-30 09:34 | P.PNINT_ITS ---
Progress Note: A&P Assessment and Plan (1) Acute encephalopathy: Code(s): G93.40 - Encephalopathy, unspecified Status: Acute Assessment and Plan: Patient presented with altered mental status, fall On the evening of 09/28, patient had moved delirium, agitation, combativeness, was placed in 4 point restraints. Patient was transferred to the ICU for possible Precedex infusion. -repeat CT scan of the brain upon arrival to the ICU: Hypodensity in the medial aspect of the left temporal lobe and occipital lobe which is highly suggestive of acute infarct. 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 Old infarct in the right cerebellar hemisphere. -patient started on rectal aspirin. Unable to take p.o. statin as he is NPO for now due to altered mental status -MRI has been ordered -appreciate Neurology evaluation recommendation, recommending EEG and MRI -continue neuro check per protocol -maintain adequate blood pressures-allow permissive hypertension 09/27: CT brain: No acute intracranial finding 09/27: Chest x-ray shows left lower lobe atelectasis versus pneumonia 09/28: CT cervical spine: No fracture or subluxation of the cervical spine 09/28: CTA head and neck: Exam somewhat suboptimal due to motion artifact. No large vessel occlusion. 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 (2) Acute kidney injury: Code(s): N17.9 - Acute kidney failure, unspecified Status: Acute Assessment and Plan: Acute kidney injury could be related to hypovolemia, patient was adequately fluid-resuscitated -urine output has been adequate -creatinine has normalized -continue IV fluids -monitor urine output, renal function electrolytes (3) Hypertension: Qualifiers: Hypertension type: primary hypertension Qualified Code(s): I10 - Essential (primary) hypertension Code(s): I10 - Essential (primary) hypertension Status: Acute Assessment and Plan: Hold all antihypertensives since patient acute stroke, will allow permissive hypertension (4) ILANA on CPAP: Code(s): G47.33 - Obstructive sleep apnea (adult) (pediatric) Status: Chronic Assessment and Plan: Obstructive sleep apnea on CPAP at night -if patient has altered mental status with avoid CPAP mask (5) Pneumonia: Qualifiers: Laterality: left Lung location: lower lobe of lung Pneumonia type: due to unspecified organism Qualified Code(s): J18.9 - Pneumonia, unspecified organism Code(s): J18.9 - Pneumonia, unspecified organism Status: Acute Assessment and Plan: Chest x-ray on admission showed left lower lobe atelectasis versus pneumonia -could be related to aspiration pneumonitis -continue azithromycin, ceftriaxone (09/28) -continue Flagyl (09/29) (6) Type 2 diabetes mellitus: Qualifiers: Diabetes mellitus custodial insulin use: with custodial use Diabetes mellitus complication status: with circulatory complication Diabetes mellitus complication detail: with other circulatory complications Qualified Code(s): E11.59 - Type 2 diabetes mellitus with other circulatory complications; Z79.4 - prison (current) use of insulin Code(s): E11.9 - Type 2 diabetes mellitus without complications Status: Acute Assessment and Plan: Continue Accu-Cheks and sliding scale insulin (7) Seizure disorder: Code(s): G40.909 - Epilepsy, unspecified, not intractable, without status epilepticus Status: Acute Assessment and Plan: Patient takes carbamazepine 200 mg PO Q 8 hours at home -currently NPO, will start Keppra IV -EEG has been ordered and pending Plan DVT prophylaxis: Enoxaparin Stress ulcer prophylaxis: Protonix Nutrition: NPO Code Status: Full code Critical Care Time Spent: 33 minutes Due to a high probability of clinically significant, life threatening deterioration, the patient required my highest level of preparedness to intervene emergently and I personally spent this critical care time directly and personally managing the patient. This critical care time included obtaining a history; examining the patient; pulse oximetry; ordering and review of studies; arranging urgent treatment with development of a management plan; evaluation of patient's response to treatment; frequent reassessment; and discussions with other providers. It was exclusive of separately billable procedures and treating other patients and teaching time. Please see Assessment and Plan section and the rest of the note for further information on patient assessment and treatment This dictation may have been done utilizing a voice recognition system. Attempts have been made to correct errors. However, there may be uncorrected grammatical, spelling, and recognitions errors present. Subjective Date/time seen: 09/30/24 09:34 Interval history: Reason for consult: Acute ischemic stroke, delirium, agitation, combative behavior 64yo male with DM, seizure disorder, CVA, kidney stones, HTN, CAD s/p stent placement and CABG, ILANA, former smoker who presented to the hospital with altered mental status and fall. 09/30/2024: Patient seen and examined the ICU, remains on Precedex infusion, opens his eyes, answers yes and no to question, follows simple commands in all e xtremities, he was able to tell his name and date of . Denies any pain at this time or difficulty breathing Review of Systems Review of Systems: ROS unobtainable: Yes unobtainable due to medical condition and unobtainable due to mental status Exam 2 Narrative: General: Laying in bed comfortably, in no acute distress HEENT:? Pupils equal and reactive, sclera is clear Neck:? Supple Respiratory:? Clear to auscultation bilaterally, decreased at bases bilaterally with no wheezing, adequate air entry Cardiac:? S1-S2 normal, bradycardia Abdomen:? Soft, non tender, non distended, normoactive bowels Extremities:? Normal tone in upper and lower extremities, palpable pedal pulses, no edema Neuro:? Patient is awake, more alert, able to answer yes and no to questions. 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 Warm and dry Psych:? Unable to assess at this time Objective Data Vital Signs Vital Signs: Vital Signs - 24 hr 09/29/24 10:00 09/29/24 10:00 09/29/24 10:09 Temperature Pulse Rate 79 83 Respiratory Rate 20 Blood Pressure 126/85 Pulse Oximetry 97 100 Oxygen Delivery Nasal Cannula Oxygen Flow Rate 2 Fraction of Inspired Oxygen 28 09/29/24 11:07 09/29/24 12:00 09/29/24 12:00 Temperature 97.6 F Pulse Rate 92 Respiratory Rate 19 Blood Pressure 114/77 Pulse Oximetry 95 95 Oxygen Delivery Room Air Oxygen Flow Rate Fraction of Inspired Oxygen 09/29/24 12:00 09/29/24 13:05 09/29/24 13:48 Temperature Pulse Rate 104 H 92 Respiratory Rate 18 Blood Pressure Pulse Oximetry 97 Oxygen Delivery Room Air Oxygen Flow Rate Fraction of Inspired Oxygen 21 09/29/24 14:00 09/29/24 14:00 09/29/24 14:00 Temperature Pulse Rate 74 74 63 Respiratory Rate 18 18 Blood Pressure 126/67 Pulse Oximetry 96 Oxygen Delivery Oxygen Flow Rate Fraction of Inspired Oxygen 09/29/24 16:00 09/29/24 16:00 09/29/24 16:00 Temperature 98.5 F Pulse Rate 63 63 Respiratory Rate 18 18 Blood Pressure 119/66 Pulse Oximetry 95 95 Oxygen Delivery Room Air Oxygen Flow Rate Fraction of Inspired Oxygen 09/29/24 16:00 09/29/24 18:00 09/29/24 18:00 Temperature Pulse Rate 65 64 63 Respiratory Rate 19 18 Blood Pressure 129/83 Pulse Oximetry 94 Oxygen Delivery Oxygen Flow Rate Fraction of Inspired Oxygen 09/29/24 18:00 09/29/24 19:40 09/29/24 20:00 Temperature Pulse Rate 63 70 Respiratory Rate 17 Blood Pressure Pulse Oximetry 96 Oxygen Delivery Room Air Oxygen Flow Rate Fraction of Inspired Oxygen 09/29/24 20:00 09/29/24 20:00 09/29/24 20:00 Temperature Pulse Rate 84 84 73 Respiratory Rate 20 18 Blood Pressure 131/95 H Pulse Oximetry 96 Oxygen Delivery Oxygen Flow Rate Fraction of Inspired Oxygen 09/29/24 20:15 09/29/24 20:30 09/29/24 22:00 Temperature Pulse Rate 73 61 57 L Respiratory Rate 20 18 18 Blood Pressure Pulse Oximetry Oxygen Delivery Oxygen Flow Rate Fraction of Inspired Oxygen 09/29/24 22:00 09/29/24 22:00 09/29/24 23:11 Temperature Pulse Rate 57 L 57 L 52 L Respiratory Rate 17 14 Blood Pressure 154/79 H Pulse Oximetry 94 Oxygen Delivery Oxygen Flow Rate Fraction of Inspired Oxygen 09/29/24 23:25 09/29/24 23:37 09/30/24 00:00 Temperature Pulse Rate 50 L 52 L 51 L Respiratory Rate 16 16 Blood Pressure Pulse Oximetry Oxygen Delivery Oxygen Flow Rate Fraction of Inspired Oxygen 09/30/24 00:00 09/30/24 00:00 09/30/24 01:12 Temperature Pulse Rate 51 L 52 L Respiratory Rate 15 13 Blood Pressure 160/84 H Pulse Oximetry 96 96 Oxygen Delivery Room Air Oxygen Flow Rate Fraction of Inspired Oxygen 09/30/24 01:12 09/30/24 02:00 09/30/24 02:00 Temperature 97.5 F L Pulse Rate 52 L 73 73 Respiratory Rate 13 17 17 Blood Pressure 147/85 H Pulse Oximetry 96 Oxygen Delivery Oxygen Flow Rate Fraction of Inspired Oxygen 09/30/24 02:00 09/30/24 02:15 09/30/24 02:30 Temperature Pulse Rate 75 75 63 Respiratory Rate 15 15 Blood Pressure Pulse Oximetry Oxygen Delivery Oxygen Flow Rate Fraction of Inspired Oxygen 09/30/24 02:45 09/30/24 03:00 09/30/24 04:00 Temperature Pulse Rate 60 54 L Respiratory Rate 13 16 Blood Pressure Pulse Oximetry Oxygen Delivery Room Air Oxygen Flow Rate Fraction of Inspired Oxygen 09/30/24 04:00 09/30/24 04:00 09/30/24 04:30 Temperature 97.5 F L Pulse Rate 52 L 52 L 53 L Respiratory Rate 16 17 Blood Pressure 151/77 H Pulse Oximetry 92 Oxygen Delivery Oxygen Flow Rate Fraction of Inspired Oxygen 09/30/24 04:45 09/30/24 05:00 09/30/24 05:15 Temperature Pulse Rate 52 L 51 L 50 L Respiratory Rate 17 17 16 Blood Pressure Pulse Oximetry Oxygen Delivery Oxygen Flow Rate Fraction of Inspired Oxygen 09/30/24 06:00 09/30/24 06:00 09/30/24 06:00 Temperature Pulse Rate 52 L 54 L 54 L Respiratory Rate 19 17 Blood Pressure 153/86 H Pulse Oximetry 95 Oxygen Delivery Oxygen Flow Rate Fraction of Inspired Oxygen 09/30/24 07:25 09/30/24 07:25 09/30/24 07:47 Temperature Pulse Rate 58 L 58 L 49 L Respiratory Rate 15 15 16 Blood Pressure 155/76 H Pulse Oximetry 97 Oxygen Delivery Oxygen Flow Rate Fraction of Inspired Oxygen 09/30/24 08:00 09/30/24 08:00 09/30/24 08:00 Temperature Pulse Rate 52 L 55 L Respiratory Rate 14 Blood Pressure Pulse Oximetry 97 Oxygen Delivery Room Air Oxygen Flow Rate Fraction of Inspired Oxygen Intake/Output Intake/Output: Intake & Output 09/27/24 09/28/24 09/29/24 09/30/24 23:59 23:59 23:59 23:59 Intake Total 1033.5 2528.7 1098.2 Output Total 707 917 2427 Balance 833.5 1653.7 -1.8 Meds/Results Medications: Active Medications Generic Name Dose Route Start Last Admin Trade Name Freq PRN Reason Stop Dose Admin Acetaminophen 650 mg 09/28/24 17:51 Acetaminophen 325 Mg Tablet PO Q4H PRN Mild Pain (1-3) or Fever Aspirin 150 mg 09/29/24 09:00 09/30/24 08:44 Aspirin 300 Mg Suppository RECTAL 150 mg DAILY LEAH Administration Dextrose 12.5 gm 09/28/24 17:37 Dextrose 50% 25 Gm/50 Ml Syringe IV PUSH PRN PRN Hypoglycemia Protocol Enoxaparin Sodium 40 mg 09/29/24 09:00 09/30/24 08:44 Enoxaparin 40 Mg/0.4 Ml Syringe SUB-Q 40 mg DAILY LEAH Administration Glucagon 1 mg 09/28/24 17:37 Glucagon For Inj 1 Mg Vial IM PRN PRN Hypoglycemia Protocol Glucose 15 gm 09/28/24 17:37 Glucose Oral Gel 15 Gm Of Glucse In 37.5 Gm Tube PO PRN PRN Hypoglycemia Protocol Hydralazine HCl 10 mg 09/30/24 07:38 Hydralazine Hcl 20 Mg/Ml Vial IV PUSH Q4H PRN Blood Pressure - High Azithromycin 500 mg in 250 mls @ 250 mls/hr 09/29/24 06:00 09/30/24 05:41 Zithromax IVPB 250 mls/hr Q24H LEAH Administration Ceftriaxone Sodium 1 gm in 50 mls @ 100 mls/hr 09/29/24 05:00 09/30/24 04:41 Rocephin 1 Gm/Ns 50 Ml IVPB 100 mls/hr Q24H LEAH Administration Dextrose 1,000 mls @ 100 mls/hr 09/28/24 17:37 Dextrose 5% 1,000 Ml IVPB PRN PRN Hypoglycemia Protocol Levetiracetam 500 mg in 100 mls @ 400 mls/hr 09/29/24 09:00 09/30/24 08:45 Keppra Iv IVPB 400 mls/hr Q12HR LEAH Administration Metronidazole 500 mg in 100 mls @ 100 mls/hr 09/29/24 10:00 09/30/24 01:12 Flagyl 500 Mg/Iso Soln 100 Ml IVPB 100 mls/hr Q8H LEAH Administration Lactated Ringer's 1,000 mls @ 75 mls/hr 09/29/24 10:10 09/30/24 00:51 Lr - Lactated Ringers Iv IV CONT 75 mls/hr .[id number] LEAH Administration Dexmedetomidine HCl 400 mcg in 100 mls @ 6.81 mls/hr 09/29/24 12:55 09/30/24 08:00 Precedex 400 Mcg/100 Ml IV CONT 0.3 mcg/kg/hr .[id number] LEAH 6.81 mls/hr Titration Protocol 0.3 MCG/KG/HR Insulin Aspart 3 - 6 units 09/28/24 18:00 09/30/24 05:37 Insulin Aspart (*Bkc) 100 Units/Ml SUB-Q Not Given Q6HR [facility] Protocol Ondansetron HCl 4 mg 09/28/24 17:51 Ondansetron Inj 4 Mg/2 Ml Vial IV PUSH Q6H PRN Nausea And Vomiting Pantoprazole Sodium 40 mg 09/30/24 09:00 09/30/24 08:44 Pantoprazole Sodium Iv 40 Mg Vial IV PUSH 40 mg QAM LEAH Administration Radiology Results: ITS Impressions Chest X-Ray 09/27/24 23:37 IMPRESSION: Left lower lobe atelectasis versus pneumonia. Cervical Spine CT 09/28/24 05:41 Impression: No fracture or subluxation of the cervical spine. Head/Neck CTA 09/28/24 05:42 Impression: Exam somewhat suboptimal due to motion artifact. No large vessel occlusion. There are probable moderate to high-grade stenoses in the cavernous portions of the distal internal carotid arteries related to atherosclerotic calcification. 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 Head CT 09/28/24 23:16 IMPRESSION: Hypodensity in the medial aspect of the left temporal lobe and occipital lobe which is highly suggestive of acute infarct. MRI evaluation advised. 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 Old infarct in the right cerebellar hemisphere. Carotid Doppler Study 09/29/24 12:29 Impression: Limited evaluation. Within the limitations of the examination, no sonographic evidence of flow-limiting stenosis in carotid arteries. Labs Labs: Laboratory Results - last 24 hr 09/29/24 09/29/24 09/29/24 09:59 11:07 12:17 WBC RBC Hgb Hct MCV MCH MCHC RDW Plt Count MPV Immature Gran % (Auto) Neut % (Auto) Lymph % (Auto) Russell % (Auto) Eos % (Auto) Baso % (Auto) Lymph # (Auto) Russell # (Auto) Eos # (Auto) Baso # (Auto) Abs Immat Gran (auto) Absolute Neuts (auto) Absolute Nucleated RBC Nucleated RBC % Sodium Potassium Chloride Carbon Dioxide Anion Gap BUN Creatinine Estim Creat Clear Calc Estimated GFR Glucose POC Capillary Glucose 102 93 Calcium Phosphorus Magnesium Total Bilirubin AST ALT Alkaline Phosphatase Total Protein Albumin Urine Color Yellow Urine Appearance Clear Urine pH 5.5 Ur Specific [place] 1.028 Urine Protein Negative Urine Glucose (UA) 3+ H Urine Ketones 1+ H Ur Blood (Man) Negative Urine Nitrate Negative Urine Bilirubin Negative Urine Urobilinogen 0.2 Leukocyte Esterase Rfl Negative 09/29/24 09/29/24 09/30/24 17:14 23:14 05:01 WBC 10.0 RBC 4.32 L Hgb 13.1 L Hct 39.6 L MCV 91.7 MCH 30.3 MCHC 33.1 RDW 14.5 Plt Count 268 MPV 10.9 H Immature Gran % (Auto) 0.3 Neut % (Auto) 70.5 Lymph % (Auto) 14.1 L Russell % (Auto) 10.8 H Eos % (Auto) 3.8 Baso % (Auto) 0.5 Lymph # (Auto) 1.41 Russell # (Auto) 1.1 H Eos # (Auto) 0.4 H Baso # (Auto) 0.1 Abs Immat Gran (auto) 0.03 Absolute Neuts (auto) 7.1 H Absolute Nucleated RBC 0.000 Nucleated RBC % 0.0 Sodium 136 L Potassium 4.0 Chloride 107 Carbon Dioxide 17 L Anion Gap 12 BUN 13 Creatinine 0.83 Estim Creat Clear Calc 80 Estimated GFR > 60 Glucose 103 POC Capillary Glucose 85 90 Calcium 8.6 Phosphorus 2.5 Magnesium 1.8 Total Bilirubin 0.5 AST 31 ALT 20 Alkaline Phosphatase 62 Total Protein 8.0 Albumin 4.0 Urine Color Urine Appearance Urine pH Ur Specific [place] Urine Protein Urine Glucose (UA) Urine Ketones Ur Blood (Man) Urine Nitrate Urine Bilirubin Urine Urobilinogen Leukocyte Esterase Rfl Quality VTE Prophylaxis VTE prophylaxis: pharmacologic ordered
--- NOTE | 2024-09-30 12:42 | PM.IMPN ---
Progress Note: A&P Assessment and Plan (1) Acute encephalopathy: Code(s): G93.40 - Encephalopathy, unspecified Status: Acute Assessment and Plan: Patient presented with altered mental status and fall. VBG 7.42/42/27 on 1L. Cr 1.32, serum bicarb 18 (AG 16), Lactic 3.6, PCT 0.1 and elevated Trop. UDS negative. Head CT showing old CVAs but no acute process. Cervical spine CT showing no fracture or subluxation. 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 Patient was admitted but on the evening of 09/28, he had delirium, agitation, combativeness, was placed in 4 point restraints. Patient was transferred to the ICU for possible Precedex infusion. Repeat Head CT showing a hypodensity in the medial aspect of the left temporal lobe and occipital lobe which is highly suggestive of acute infarct. Consider acute CVA. Consider seizure given the elevated lactic and other findings. Brain MR results pending Patient started on rectal aspirin. Unable to take p.o. statin as he is NPO for now due to altered mental status Neurology has been consulted Precedex started and calmer now. Wean off Precedex as tolerated. Monitor closely in ICU (2) Acute kidney injury: Code(s): N17.9 - Acute kidney failure, unspecified Status: Acute Assessment and Plan: Patient with a mild [place]. Cr 1.32 on admission. [place]te related to hypovolemia. Patient was adequately fluid-resuscitated. Cr normal now. Monitor urine output, renal function and electrolytes (3) Pneumonia: Qualifiers: Laterality: left Lung location: lower lobe of lung Pneumonia type: due to unspecified organism Qualified Code(s): J18.9 - Pneumonia, unspecified organism Code(s): J18.9 - Pneumonia, unspecified organism Status: Acute Assessment and Plan: Chest x-ray on admission showed left lower lobe atelectasis versus pneumonia Could be related to aspiration pneumonitis Started on azithromycin, ceftriaxone (09/28) Flagyl added (09/29) On RA (4) Hypertension: Qualifiers: Hypertension type: primary hypertension Qualified Code(s): I10 - Essential (primary) hypertension Code(s): I10 - Essential (primary) hypertension Status: Acute Assessment and Plan: Hold all antihypertensives since patient acute stroke Allow for permissive hypertension (5) ILANA on CPAP: Code(s): G47.33 - Obstructive sleep apnea (adult) (pediatric) Status: Chronic Assessment and Plan: Obstructive sleep apnea on CPAP at night Hold off on CPAP until patient is more awake and alert. VBG noted. 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 Continue AccuCheks covering with sliding scale. Hypoglycemia protocol available as needed. Continue to monitor (7) Seizure disorder: Code(s): G40.909 - Epilepsy, unspecified, not intractable, without status epilepticus Status: Acute Assessment and Plan: Consider seizure prior to admission. Patient takes carbamazepine 200 mg PO Q 8 hours at home Currently NPO Keppra IV started Follow. Seizure precautions. Plan DVT prophylaxis: Enoxaparin Code Status: Full code Subjective Date/time seen: 09/30/24 12:42 Interval history: 64yo male with DM, seizure disorder, CVA, kidney stones, HTN, CAD s/p stent placement and CABG, ILANA, former smoker who presented to the hospital with altered mental status and fall. Patient awake but not alert and remains confused. Per RN, he is combative and hallucinating at times. He remains on precedex Review of Systems Review of Systems: ROS unobtainable: Yes unobtainable due to mental status Exam Narrative: AF 97.7 138/76 63 15 93% ra Gen - NARD Chest - clear to quiet respirations. CV - RRR S1/S2. Tele showing no significant dysrhythmias Abd - Soft, no apparent tenderness. Ext - trace pedal edema. 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 1+ DP Neuro - Awake, somnolent, Mumbled speech at times. Follows commands at times. Able to OLEA. Psych - calm, occasionally cooperative Skin - Warm and dry. multiple dried escars bilateral toes Objective Data Vital Signs Vital Signs: Vital Signs - 24 hr 09/29/24 13:05 09/29/24 13:48 09/29/24 14:00 Temperature Pulse Rate 92 74 Respiratory Rate 18 18 Blood Pressure 126/67 Pulse Oximetry 97 96 Oxygen Delivery Room Air Fraction of Inspired Oxygen 21 09/29/24 14:00 09/29/24 14:00 09/29/24 16:00 Temperature 98.5 F Pulse Rate 74 63 63 Respiratory Rate 18 18 Blood Pressure 119/66 Pulse Oximetry 95 Oxygen Delivery Fraction of Inspired Oxygen 09/29/24 16:00 09/29/24 16:00 09/29/24 16:00 Temperature Pulse Rate 63 65 Respiratory Rate 18 Blood Pressure Pulse Oximetry 95 Oxygen Delivery Room Air Fraction of Inspired Oxygen 09/29/24 18:00 09/29/24 18:00 09/29/24 18:00 Temperature Pulse Rate 64 63 63 Respiratory Rate 19 18 Blood Pressure 129/83 Pulse Oximetry 94 Oxygen Delivery Fraction of Inspired Oxygen 09/29/24 19:40 09/29/24 20:00 09/29/24 20:00 Temperature Pulse Rate 70 84 Respiratory Rate 17 20 Blood Pressure 131/95 H Pulse Oximetry 96 96 Oxygen Delivery Room Air Fraction of Inspired Oxygen 09/29/24 20:00 09/29/24 20:00 09/29/24 20:15 Temperature Pulse Rate 84 73 73 Respiratory Rate 18 20 Blood Pressure Pulse Oximetry Oxygen Delivery Fraction of Inspired Oxygen 09/29/24 20:30 09/29/24 22:00 09/29/24 22:00 Temperature Pulse Rate 61 57 L 57 L Respiratory Rate 18 18 Blood Pressure Pulse Oximetry Oxygen Delivery Fraction of Inspired Oxygen 09/29/24 22:00 09/29/24 23:11 09/29/24 23:25 Temperature Pulse Rate 57 L 52 L 50 L Respiratory Rate 17 14 16 Blood Pressure 154/79 H Pulse Oximetry 94 Oxygen Delivery Fraction of Inspired Oxygen 09/29/24 23:37 09/30/24 00:00 09/30/24 00:00 Temperature Pulse Rate 52 L 51 L 51 L Respiratory Rate 16 15 Blood Pressure 160/84 H Pulse Oximetry 96 Oxygen Delivery Fraction of Inspired Oxygen 09/30/24 00:00 09/30/24 01:12 09/30/24 01:12 Temperature Pulse Rate 52 L 52 L Respiratory Rate 13 13 Blood Pressure Pulse Oximetry 96 Oxygen Delivery Room Air Fraction of Inspired Oxygen 09/30/24 02:00 09/30/24 02:00 09/30/24 02:00 Temperature 97.5 F L Pulse Rate 73 73 75 Respiratory Rate 17 17 Blood Pressure 147/85 H Pulse Oximetry 96 Oxygen Delivery Fraction of Inspired Oxygen 09/30/24 02:15 09/30/24 02:30 09/30/24 02:45 Temperature Pulse Rate 75 63 60 Respiratory Rate 15 15 13 Blood Pressure Pulse Oximetry Oxygen Delivery Fraction of Inspired Oxygen 09/30/24 03:00 09/30/24 04:00 09/30/24 04:00 Temperature Pulse Rate 54 L 52 L Respiratory Rate 16 Blood Pressure Pulse Oximetry Oxygen Delivery Room Air Fraction of Inspired Oxygen 09/30/24 04:00 09/30/24 04:30 09/30/24 04:45 Temperature 97.5 F L Pulse Rate 52 L 53 L 52 L Respiratory Rate 16 17 17 Blood Pressure 151/77 H Pulse Oximetry 92 Oxygen Delivery Fraction of Inspired Oxygen 09/30/24 05:00 09/30/24 05:15 09/30/24 06:00 Temperature Pulse Rate 51 L 50 L 52 L Respiratory Rate 17 16 Blood Pressure Pulse Oximetry Oxygen Delivery Fraction of Inspired Oxygen 09/30/24 06:00 09/30/24 06:00 09/30/24 07:25 Temperature Pulse Rate 54 L 54 L 58 L Respiratory Rate 19 17 15 Blood Pressure 153/86 H Pulse Oximetry 95 Oxygen Delivery Fraction of Inspired Oxygen 09/30/24 07:25 09/30/24 07:47 09/30/24 08:00 Temperature Pulse Rate 58 L 49 L 52 L Respiratory Rate 15 16 14 Blood Pressure 155/76 H Pulse Oximetry 97 Oxygen Delivery Fraction of Inspired Oxygen 09/30/24 08:00 09/30/24 08:00 09/30/24 10:00 Temperature Pulse Rate 55 L 51 L Respiratory Rate 15 Blood Pressure 123/78 Pulse Oximetry 97 98 Oxygen Delivery Room Air Fraction of Inspired Oxygen 09/30/24 10:00 09/30/24 10:00 09/30/24 11:08 Temperature 97.5 F L Pulse Rate 60 63 Respiratory Rate 13 Blood Pressure Pulse Oximetry Oxygen Delivery Fraction of Inspired Oxygen Intake/Output Intake/Output: Intake & Output 09/27/24 09/28/24 09/29/24 09/30/24 23:59 23:59 23:59 23:59 Intake Total 1033.5 2528.7 1211.8 Output Total 098 513 7211 Balance 833.5 1653.7 111.8 Meds/Results Medications: Active Medications Generic Name Dose Route Start Last Admin Trade Name Freq PRN Reason Stop Dose Admin Acetaminophen 650 mg 09/28/24 17:51 Acetaminophen 325 Mg Tablet PO Q4H PRN Mild Pain (1-3) or Fever Aspirin 150 mg 09/29/24 09:00 09/30/24 08:44 Aspirin 300 Mg Suppository RECTAL 150 mg DAILY LEAH Administration Dextrose 12.5 gm 09/28/24 17:37 Dextrose 50% 25 Gm/50 Ml Syringe IV PUSH PRN PRN Hypoglycemia Protocol Enoxaparin Sodium 40 mg 09/29/24 09:00 09/30/24 08:44 Enoxaparin 40 Mg/0.4 Ml Syringe SUB-Q 40 mg DAILY LEAH Administration Glucagon 1 mg 09/28/24 17:37 Glucagon For Inj 1 Mg Vial IM PRN PRN Hypoglycemia Protocol Glucose 15 gm 09/28/24 17:37 Glucose Oral Gel 15 Gm Of Glucse In 37.5 Gm Tube PO PRN PRN Hypoglycemia Protocol Hydralazine HCl 10 mg 09/30/24 07:38 Hydralazine Hcl 20 Mg/Ml Vial IV PUSH Q4H PRN Blood Pressure - High Azithromycin 500 mg in 250 mls @ 250 mls/hr 09/29/24 06:00 09/30/24 05:41 Zithromax IVPB 250 mls/hr Q24H LEAH Administration Ceftriaxone Sodium 1 gm in 50 mls @ 100 mls/hr 09/29/24 05:00 09/30/24 04:41 Rocephin 1 Gm/Ns 50 Ml IVPB 100 mls/hr Q24H LEAH Administration Dextrose 1,000 mls @ 100 mls/hr 09/28/24 17:37 Dextrose 5% 1,000 Ml IVPB PRN PRN Hypoglycemia Protocol Levetiracetam 500 mg in 100 mls @ 400 mls/hr 09/29/24 09:00 09/30/24 08:45 Keppra Iv IVPB 400 mls/hr Q12HR LEAH Administration Metronidazole 500 mg in 100 mls @ 100 mls/hr 09/29/24 10:00 09/30/24 11:00 Flagyl 500 Mg/Iso Soln 100 Ml IVPB 100 mls/hr Q8H LEAH Administration Lactated Ringer's 1,000 mls @ 75 mls/hr 09/29/24 10:10 09/30/24 00:51 Lr - Lactated Ringers Iv IV CONT 75 mls/hr .[id number] LEAH Administration Dexmedetomidine HCl 400 mcg in 100 mls @ 4.54 mls/hr 09/29/24 12:55 09/30/24 10:00 Precedex 400 Mcg/100 Ml IV CONT 0.2 mcg/kg/hr .Q22H2M LEAH 4.54 mls/hr Titration Protocol 0.2 MCG/KG/HR Insulin Aspart 3 - 6 units 09/28/24 18:00 09/30/24 05:37 Insulin Aspart (*Bkc) 100 Units/Ml SUB-Q Not Given Q6HR LEAH Protocol Ondansetron HCl 4 mg 09/28/24 17:51 Ondansetron Inj 4 Mg/2 Ml Vial IV PUSH Q6H PRN Nausea And Vomiting Pantoprazole Sodium 40 mg 09/30/24 09:00 09/30/24 08:44 Pantoprazole Sodium Iv 40 Mg Vial IV PUSH 40 mg QAM LEAH Administration Radiology Results: ITS Impressions Chest X-Ray 09/27/24 23:37 IMPRESSION: Left lower lobe atelectasis versus pneumonia. Cervical Spine CT 09/28/24 05:41 Impression: No fracture or subluxation of the cervical spine. Head/Neck CTA 09/28/24 05:42 Impression: Exam somewhat suboptimal due to motion artifact. No large vessel occlusion. There are probable moderate to high-grade stenoses in the cavernous portions of the distal internal carotid arteries related to atherosclerotic calcification. 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 Head CT 09/28/24 23:16 IMPRESSION: Hypodensity in the medial aspect of the left temporal lobe and occipital lobe which is highly suggestive of acute infarct. MRI evaluation advised. 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 Old infarct in the right cerebellar hemisphere. Carotid Doppler Study 09/29/24 12:29 Impression: Limited evaluation. Within the limitations of the examination, no sonographic evidence of flow-limiting stenosis in carotid arteries. Labs Labs: Laboratory Results - last 24 hr 09/29/24 09/29/24 09/30/24 17:14 23:14 05:01 WBC 10.0 RBC 4.32 L Hgb 13.1 L Hct 39.6 L MCV 91.7 MCH 30.3 MCHC 33.1 RDW 14.5 Plt Count 268 MPV 10.9 H Immature Gran % (Auto) 0.3 Neut % (Auto) 70.5 Lymph % (Auto) 14.1 L [place] % (Auto) 10.8 H Eos % (Auto) 3.8 Baso % (Auto) 0.5 Lymph # (Auto) 1.41 [place] # (Auto) 1.1 H Eos # (Auto) 0.4 H Baso # (Auto) 0.1 Abs Immat Gran (auto) 0.03 Absolute Neuts (auto) 7.1 H Absolute Nucleated RBC 0.000 Nucleated RBC % 0.0 Sodium 136 L Potassium 4.0 Chloride 107 Carbon Dioxide 17 L Anion Gap 12 BUN 13 Creatinine 0.83 Estim Creat Clear Calc 80 Estimated GFR > 60 Glucose 103 POC Capillary Glucose 85 90 Calcium 8.6 Phosphorus 2.5 Magnesium 1.8 Total Bilirubin 0.5 AST 31 ALT 20 Alkaline Phosphatase 62 Total Protein 8.0 Albumin 4.0
[2024-09-30 12:58] LABS: Glucose Point of Care 94 mg/dl (65-105)
[2024-09-30 17:18] LABS: Glucose Point of Care 84 mg/dl (65-105)
--- NOTE | 2024-09-30 17:33 | ECG_ITS ---
Test Date: 2024-09-30 17:38:47 Measurements Intervals [place] Rate: 72 P: 62 DE: 196 QRS: -61 QRSD: 104 T: 101 QT: 421 QTc: 461 Interpretive Statements SINUS RHYTHM LEFT AXIS DEVIATION MINIMAL Q WAVES- HIGH LATERAL LEADS CONSIDER INFERIOR INFARCT, AGE INDETERMINATE EXTENSIVE ANTERIOR INFARCT, AGE INDETERMINATE BORDERLINE ST-T WAVE ABNORMALITY- HIGH LATERAL LEADS BASELINE ARTIFACT- I, II, III, AVR, AVL, AVF, V1-V6 ABNORMAL ECG Compared to ECG 09/28/2024 02:09:28 HEART RATE HAS DECREASED Electronically Signed On 09-30-2024 18:16:07 CDT by Cole Roland D.O.
[2024-09-30] MEDS: NITROGLYCERIN SL 0.4 MG TABLET SUBLINGUAL (18:00)
[2024-09-30 19:08] LABS: Troponin I < 0.012 ng/mL (0.000-0.034)
[2024-09-30] MEDS: dexmedeTOMIDine 400 MCG/100 ML 400 MCG/100 ML BAG 18.16 MCG IV CONT (23:22)
[2024-09-30 23:28] LABS: Glucose Point of Care 100 mg/dl (65-105)
[2024-10-01] VITALS (28 sets, daily range): BP systolic 129–169; BP diastolic 66–96; PULSE 53–81; RESP 16–28; TEMP 36.4–37.2; O2SAT 93–97; BMI 30.9
[2024-10-01] MEDS: metroNIDAZOLE 500 MG/ISO 100ML 500 MG/100 ML BAG 100 MG IVPB ×3 (02:14→18:43)
[2024-10-01 03:53] LABS: Basophils Absolute Auto 0.1 K/mm3 (0.0-0.1); Basophils Percent Auto 0.5 % (0.2-1.2); Eosinophils Absolute Auto 0.2 K/mm3 (0-0.3); Eosinophils Percent Auto 2.1 % (0-4.4); Hematocrit 37.3 % (42.0-52.0); Immature Granulocyte Absolute 0.03 K/mm3 (0.00-0.031); Immature Granulocyte Percent A 0.3 % (0-0.5); Lymphocytes Absolute Auto 1.38 K/mm3 (0.9-3.2); Lymphocytes Percent Auto 14.1 % (18.3-44.2); Mean Corpuscular HGB Conc 32.2 g/dl (32-36); Mean Corpuscular Hemoglobin 29.9 pg (26-34); Monocytes Percent Auto 9.9 % (2.6-8.5); Neutrophils Absolute Auto 7.1 K/mm3 (1.3-6.7); Neutrophils Percent Auto 73.1 % (45.5-73.1); Platelet Count Result 256 k/mm3 (150-375); Red Blood Count 4.01 M/mm3 (4.6-6.20); Red Cell Distribution Width 14.6 % (11.5-14.5); White Blood Count 9.8 K/mm3 (4.5-10.0)
[2024-10-01] MEDS: dexmedeTOMIDine 400 MCG/100 ML 400 MCG/100 ML BAG 18.16 MCG IV CONT (03:54)
[2024-10-01] MEDS: LACTATED RINGERS 1,000 ML 75 ML IV CONT ×2 (03:54→18:44)
[2024-10-01 04:11] LABS: Alanine Aminotransferase 18 U/L (6-50); Albumin Level 3.9 g/dL (3.5-5.1); Alkaline Phosphatase 67 U/L (38-126); Anion Gap 17 mmol/L (4-12); Aspartate Amino Transferase 35 U/L (17-59); Bilirubin,Total 0.5 mg/dL (0.2-1.3); Blood Urea Nitrogen 15 mg/dL (9-20); Calcium 8.5 mg/dL (8.4-10.2); Carbon Dioxide 14 mmol/L (22-30); Chloride 106 mmol/L (98-107); Estimated CRCL calculation 80 ml/min; Estimated Glomerular Filt Rate > 60; Glucose 122 mg/dL (65-110); Potassium 3.8 mmol/L (3.4-5.0); Sodium 137 mmol/L (137-145)
[2024-10-01] MEDS: AZITHROMYCIN 500 MG/NS 250 ML 500 MG/250 ML BAG 250 MG IVPB (05:32)
[2024-10-01 05:38] LABS: Glucose Point of Care 136 mg/dl (65-105)
--- NOTE | 2024-10-01 07:55 | WPDINTPN ---
Progress Note: A&P Assessment and Plan (1) Acute encephalopathy: Code(s): G93.40 - Encephalopathy, unspecified Status: Acute Assessment and Plan: Patient presented with altered mental status, fall On the evening of 09/28, patient had moved delirium, agitation, combativeness, was placed in 4 point restraints. Patient was transferred to the ICU for possible Precedex infusion. -repeat CT scan of the brain upon arrival to the ICU: Hypodensity in the medial aspect of the left temporal lobe and occipital lobe which is highly suggestive of acute infarct. 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 Old infarct in the right cerebellar hemisphere. -patient started on rectal aspirin. Unable to take p.o. statin as he is NPO for now due to altered mental status -MRI has been ordered -appreciate Neurology evaluation recommendation, -continue neuro check per protocol -maintain adequate blood pressures-allow permissive hypertension -unable to do MRI as patient would not stay still, are pumps for Precedex infusion cannot go into the MRI suite -EEG to be done today 09/27: CT brain: No acute intracranial finding 09/27: Chest x-ray shows left lower lobe atelectasis versus pneumonia 09/28: CT cervical spine: No fracture or subluxation of the cervical spine 09/28: CTA head and neck: Exam somewhat suboptimal due to motion artifact. No large vessel occlusion. 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 (2) Acute kidney injury: Code(s): N17.9 - Acute kidney failure, unspecified Status: Acute Assessment and Plan: Acute kidney injury could be related to hypovolemia, patient was adequately fluid-resuscitated -urine output has been adequate -creatinine has normalized -continue IV fluids -monitor urine output, renal function electrolytes (3) Hypertension: Qualifiers: Hypertension type: primary hypertension Qualified Code(s): I10 - Essential (primary) hypertension Code(s): I10 - Essential (primary) hypertension Status: Acute Assessment and Plan: Hold all antihypertensives since patient acute stroke, will allow permissive hypertension (4) ILANA on CPAP: Code(s): G47.33 - Obstructive sleep apnea (adult) (pediatric) Status: Chronic Assessment and Plan: Obstructive sleep apnea on CPAP at night -if patient has altered mental status with avoid CPAP mask (5) Pneumonia: Qualifiers: Laterality: left Lung location: lower lobe of lung Pneumonia type: due to unspecified organism Qualified Code(s): J18.9 - Pneumonia, unspecified organism Code(s): J18.9 - Pneumonia, unspecified organism Status: Acute Assessment and Plan: Chest x-ray on admission showed left lower lobe atelectasis versus pneumonia -could be related to aspiration pneumonitis -continue azithromycin, ceftriaxone (09/28) -continue Flagyl (09/29) (6) Type 2 diabetes mellitus: Qualifiers: Diabetes mellitus extermination inspector insulin use: with [facility] use Diabetes mellitus complication status: with circulatory complication Diabetes mellitus complication detail: with other circulatory complications Qualified Code(s): E11.59 - Type 2 diabetes mellitus with other circulatory complications; Z79.4 - intermediate (current) use of insulin Code(s): E11.9 - Type 2 diabetes mellitus without complications Status: Acute Assessment and Plan: Continue Accu-Cheks and sliding scale insulin (7) Seizure disorder: Code(s): G40.909 - Epilepsy, unspecified, not intractable, without status epilepticus Status: Acute Assessment and Plan: Patient takes carbamazepine 200 mg PO Q 8 hours at home -currently NPO, will start Keppra IV -EEG has been ordered and pending Plan DVT prophylaxis: Enoxaparin Stress ulcer prophylaxis: Protonix Nutrition: NPO, patient may require NG tube Code Status: Full code Critical Care Time Spent: 32 minutes Will discuss with family regarding further plan of care Due to a high probability of clinically significant, life threatening deterioration, the patient required my highest level of preparedness to intervene emergently and I personally spent this critical care time directly and personally managing the patient. This critical care time included obtaining a history; examining the patient; pulse oximetry; ordering and review of studies; arranging urgent treatment with development of a management plan; evaluation of patient's response to treatment; frequent reassessment; and discussions with other providers. It was exclusive of separately billable procedures and treating other patients and teaching time. Please see Assessment and Plan section and the rest of the note for further information on patient assessment and treatment This dictation may have been done utilizing a voice recognition system. Attempts have been made to correct errors. However, there may be uncorrected grammatical, spelling, and recognitions errors present. Subjective Date/time seen: 10/01/24 07:55 Interval history: Reason for consult: Acute ischemic stroke, delirium, agitation, combative behavior 64yo male with DM, seizure disorder, CVA, kidney stones, HTN, CAD s/p stent placement and CABG, ILANA, former smoker who presented to the hospital with altered mental status and fall. 10/01/2024: Patient seen and examined the ICU, according the room night RN patient was confused and trending get of the bed, had to be restrained, Precedex infusion had to be increased. Patient currently somnolent, does not open his eyes or follow simple commands. Afebrile, urine output has been adequate, hemodynamically stable Review of Systems Review of Systems: ROS unobtainable: Yes unobtainable due to medical condition and unobtainable due to mental status Exam Narrative: General: Laying in bed comfortably, in no acute distress HEENT:? Pupils equal and reactive, sclera is clear Neck:? Supple Respiratory:? Clear to auscultation bilaterally, decreased at bases bilaterally with no wheezing, adequate air entry Cardiac:? S1-S2 normal, regular rate and rhythm Abdomen:? Soft, non tender, non distended, normoactive bowels Extremities:? Normal tone in upper and lower extremities, palpable pedal pulses, no edema Neuro:? Somnolent this morning on Precedex infusion does not open his eyes or follow simple commands. Skin:? Warm and dry Psych:? Unable to assess at this time Objective Data Vital Signs Vital Signs: Vital Signs - 24 hr 09/30/24 08:00 09/30/24 08:00 09/30/24 08:00 Temperature Pulse Rate 52 L 55 L Respiratory Rate 14 Blood Pressure Pulse Oximetry 97 Oxygen Delivery Room Air 09/30/24 10:00 09/30/24 10:00 09/30/24 10:00 Temperature Pulse Rate 51 L 60 63 Respiratory Rate 15 13 Blood Pressure 123/78 Pulse Oximetry 98 Oxygen Delivery 09/30/24 11:08 09/30/24 12:00 09/30/24 12:00 Temperature 97.5 F L 97.7 F Pulse Rate 63 62 Respiratory Rate 15 15 Blood Pressure 102/68 Pulse Oximetry 97 Oxygen Delivery 09/30/24 12:00 09/30/24 12:00 09/30/24 14:00 Temperature Pulse Rate 61 65 Respiratory Rate 17 Blood Pressure 138/76 Pulse Oximetry 97 93 Oxygen Delivery Room Air 09/30/24 14:00 09/30/24 14:00 09/30/24 16:00 Temperature Pulse Rate 63 63 67 Respiratory Rate 15 23 H Blood Pressure Pulse Oximetry Oxygen Delivery 09/30/24 16:00 09/30/24 16:00 09/30/24 16:00 Temperature 98.2 F Pulse Rate 67 70 Respiratory Rate 19 Blood Pressure 120/66 Pulse Oximetry 93 93 Oxygen Delivery Room Air 09/30/24 18:00 09/30/24 18:00 09/30/24 18:00 Temperature Pulse Rate 81 77 77 Respiratory Rate 14 18 Blood Pressure 127/85 Pulse Oximetry 94 Oxygen Delivery 09/30/24 19:49 09/30/24 20:00 09/30/24 20:00 Temperature Pulse Rate 81 79 Respiratory Rate 20 Blood Pressure Pulse Oximetry 96 Oxygen Delivery Room Air 09/30/24 20:00 09/30/24 20:14 09/30/24 20:45 Temperature 98.1 F Pulse Rate 79 78 87 Respiratory Rate 29 H 16 15 Blood Pressure 125/64 Pulse Oximetry 96 Oxygen Delivery 09/30/24 21:15 09/30/24 21:45 09/30/24 22:00 Temperature Pulse Rate 76 64 74 Respiratory Rate 18 19 Blood Pressure Pulse Oximetry Oxygen Delivery 09/30/24 22:00 09/30/24 22:07 09/30/24 22:17 Temperature Pulse Rate 74 73 79 Respiratory Rate 16 16 17 Blood Pressure 106/69 Pulse Oximetry 92 Oxygen Delivery 09/30/24 23:22 09/30/24 23:22 10/01/24 00:00 Temperature Pulse Rate 69 69 Respiratory Rate 19 19 Blood Pressure Pulse Oximetry 94 Oxygen Delivery Room Air 10/01/24 00:00 10/01/24 00:00 10/01/24 00:03 Temperature 99.0 F Pulse Rate 81 81 80 Respiratory Rate 28 H 25 H Blood Pressure 153/96 H Pulse Oximetry 94 Oxygen Delivery 10/01/24 02:00 10/01/24 02:00 10/01/24 02:14 Temperature Pulse Rate 67 67 67 Respiratory Rate 18 18 Blood Pressure 147/78 H Pulse Oximetry 94 Oxygen Delivery 10/01/24 02:59 10/01/24 03:54 10/01/24 03:54 Temperature Pulse Rate 58 L 55 L 55 L Respiratory Rate 19 19 19 Blood Pressure Pulse Oximetry Oxygen Delivery 10/01/24 04:00 10/01/24 04:00 10/01/24 04:00 Temperature 98.9 F Pulse Rate 55 L 55 L Respiratory Rate 19 Blood Pressure 138/68 Pulse Oximetry 95 95 Oxygen Delivery Room Air 10/01/24 06:00 10/01/24 06:00 10/01/24 06:01 Temperature Pulse Rate 55 L 55 L 55 L Respiratory Rate 20 20 Blood Pressure 129/66 Pulse Oximetry 93 Oxygen Delivery 10/01/24 06:27 10/01/24 06:58 Temperature Pulse Rate 55 L 55 L Respiratory Rate 20 20 Blood Pressure Pulse Oximetry Oxygen Delivery Intake/Output Intake/Output: Intake & Output 09/28/24 09/29/24 09/30/24 10/01/24 23:59 23:59 23:59 23:59 Intake Total 1033.5 2528.7 2958.0 1286.0 Output Total 317 582 6241 625 Balance 833.5 1653.7 808.0 661.0 Meds/Results Medications: Active Medications Generic Name Dose Route Start Last Admin Trade Name Freq PRN Reason Stop Dose Admin Acetaminophen 650 mg 09/28/24 17:51 Acetaminophen 325 Mg Tablet PO Q4H PRN Mild Pain (1-3) or Fever Aspirin 150 mg 09/29/24 09:00 09/30/24 08:44 Aspirin 300 Mg Suppository RECTAL 150 mg DAILY LEAH Administration Dextrose 12.5 gm 09/28/24 17:37 Dextrose 50% 25 Gm/50 Ml Syringe IV PUSH PRN PRN Hypoglycemia Protocol Enoxaparin Sodium 40 mg 09/29/24 09:00 09/30/24 08:44 Enoxaparin 40 Mg/0.4 Ml Syringe SUB-Q 40 mg DAILY LEAH Administration Glucagon 1 mg 09/28/24 17:37 Glucagon For Inj 1 Mg Vial IM PRN PRN Hypoglycemia Protocol Glucose 15 gm 09/28/24 17:37 Glucose Oral Gel 15 Gm Of Glucse In 37.5 Gm Tube PO PRN PRN Hypoglycemia Protocol Hydralazine HCl 10 mg 09/30/24 07:38 Hydralazine Hcl 20 Mg/Ml Vial IV PUSH Q4H PRN Blood Pressure - High Azithromycin 500 mg in 250 mls @ 250 mls/hr 09/29/24 06:00 10/01/24 05:32 Zithromax IVPB 10/04/24 05:59 250 mls/hr Q24H LEAH Administration Ceftriaxone Sodium 1 gm in 50 mls @ 100 mls/hr 09/29/24 05:00 10/01/24 05:33 Rocephin 1 Gm/Ns 50 Ml IVPB 10/04/24 04:59 Infused Q24H LEAH Infusion Dextrose 1,000 mls @ 100 mls/hr 09/28/24 17:37 Dextrose 5% 1,000 Ml IVPB PRN PRN Hypoglycemia Protocol Levetiracetam 500 mg in 100 mls @ 400 mls/hr 09/29/24 09:00 09/30/24 20:35 Keppra Iv IVPB Infused Q12HR LEAH Infusion Metronidazole 500 mg in 100 mls @ 100 mls/hr 09/29/24 10:00 10/01/24 03:15 Flagyl 500 Mg/Iso Soln 100 Ml IVPB 10/04/24 09:59 Infused Q8H LEAH Infusion Lactated Ringer's 1,000 mls @ 75 mls/hr 09/29/24 10:10 10/01/24 03:54 Lr - Lactated Ringers Iv IV CONT 75 mls/hr .[id number] LEAH Administration Dexmedetomidine HCl 400 mcg in 100 mls @ 9.08 mls/hr 09/29/24 12:55 10/01/24 06:58 Precedex 400 Mcg/100 Ml IV CONT 0.4 mcg/kg/hr .Q11H1M LEAH 9.08 mls/hr Titration Protocol 0.4 MCG/KG/HR Insulin Aspart 3 - 6 units 09/28/24 18:00 10/01/24 05:33 Insulin Aspart (*Bkc) 100 Units/Ml SUB-Q Not Given Q6HR LEAH Protocol Nitroglycerin 0.4 mg 09/30/24 17:50 09/30/24 18:00 Nitroglycerin Sl 0.4 Mg Tablet SUBLINGUAL 0.4 mg Q5MIN PRN Administration Chest Pain Ondansetron HCl 4 mg 09/28/24 17:51 Ondansetron Inj 4 Mg/2 Ml Vial IV PUSH Q6H PRN Nausea And Vomiting Pantoprazole Sodium 40 mg 09/30/24 09:00 09/30/24 08:44 Pantoprazole Sodium Iv 40 Mg Vial IV PUSH 40 mg QAM LEAH Administration Radiology Results: ITS Impressions Chest X-Ray 09/27/24 23:37 IMPRESSION: Left lower lobe atelectasis versus pneumonia. Cervical Spine CT 09/28/24 05:41 Impression: No fracture or subluxation of the cervical spine. Head/Neck CTA 09/28/24 05:42 Impression: Exam somewhat suboptimal due to motion artifact. No large vessel occlusion. There are probable moderate to high-grade stenoses in the cavernous portions of the distal internal carotid arteries related to atherosclerotic calcification. 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 Head CT 09/28/24 23:16 IMPRESSION: Hypodensity in the medial aspect of the left temporal lobe and occipital lobe which is highly suggestive of acute infarct. MRI evaluation advised. 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 Old infarct in the right cerebellar hemisphere. Carotid Doppler Study 09/29/24 12:29 Impression: Limited evaluation. Within the limitations of the examination, no sonographic evidence of flow-limiting stenosis in carotid arteries. Labs Labs: Laboratory Results - last 24 hr 09/30/24 09/30/24 09/30/24 12:49 17:15 18:42 WBC RBC Hgb Hct MCV MCH MCHC RDW Plt Count MPV Immature Gran % (Auto) Neut % (Auto) Lymph % (Auto) [place] % (Auto) Eos % (Auto) Baso % (Auto) Lymph # (Auto) [place] # (Auto) Eos # (Auto) Baso # (Auto) Abs Immat Gran (auto) Absolute Neuts (auto) Absolute Nucleated RBC Nucleated RBC % Sodium Potassium Chloride Carbon Dioxide Anion Gap BUN Creatinine Estim Creat Clear Calc Estimated GFR Glucose POC Capillary Glucose 94 84 Calcium Total Bilirubin AST ALT Alkaline Phosphatase Troponin I < 0.012 Total Protein Albumin 09/30/24 10/01/24 10/01/24 23:24 03:40 05:32 WBC 9.8 RBC 4.01 L Hgb 12.0 L Hct 37.3 L MCV 93.0 MCH 29.9 MCHC 32.2 RDW 14.6 H Plt Count 256 MPV 11.0 H Immature Gran % (Auto) 0.3 Neut % (Auto) 73.1 Lymph % (Auto) 14.1 L [place] % (Auto) 9.9 H Eos % (Auto) 2.1 Baso % (Auto) 0.5 Lymph # (Auto) 1.38 [place] # (Auto) 1.0 H Eos # (Auto) 0.2 Baso # (Auto) 0.1 Abs Immat Gran (auto) 0.03 Absolute Neuts (auto) 7.1 H Absolute Nucleated RBC 0.000 Nucleated RBC % 0.0 Sodium 137 Potassium 3.8 Chloride 106 Carbon Dioxide 14 L Anion Gap 17 H BUN 15 Creatinine 0.95 Estim Creat Clear Calc 80 Estimated GFR > 60 Glucose 122 H POC Capillary Glucose 100 136 H Calcium 8.5 Total Bilirubin 0.5 AST 35 ALT 18 Alkaline Phosphatase 67 Troponin I Total Protein 7.0 Albumin 3.9 Quality VTE Prophylaxis VTE prophylaxis: pharmacologic ordered
[2024-10-01] MEDS: ASPIRIN 300 MG SUPPOSITORY 150 MG RECTAL (08:38)
[2024-10-01] MEDS: SODIUM BICARBONATE 8.4% 50 MEQ/50 ML SYRINGE IV PUSH (08:38)
[2024-10-01] MEDS: levETIRAcetam 500MG/NACL 100ML 500 MG/100 ML BAG 400 MG IVPB (08:39)
[2024-10-01] MEDS: PANTOPRAZOLE SODIUM IV 40 MG VIAL IV PUSH (08:39)
[2024-10-01] MEDS: ENOXAPARIN 40 MG/0.4 ML SYRINGE SUB-Q (08:39)
--- NOTE | 2024-10-01 09:25 | WPDNEUROLOGY ---
Neurology EEG Report General Information Date of Study: 10/01/24 TEST EEG
[2024-10-01] MEDS: dexmedeTOMIDine 400 MCG/100 ML 400 MCG/100 ML BAG 20.43 MCG IV CONT (09:36)
--- NOTE | 2024-10-01 12:26 | WPDNEUROLOGY ---
Neurology EEG Report General Information Date of Study: 10/01/24 TEST Electroencephalogram DIAGNOSIS Altered mental status, seizure disorder, CVA CONDITION OF RECORDING Bedside recording in intensive care unit CLINICAL HISTORY History of seizures, altered mental status patient is currently on sedation EEG DESCRIPTION The background activity consists of primarily theta and delta activity. Occasional sharp wave activity appears over the right temporal central and parietal areas. Spindles were also noted. Hyperventilation or photic stimulation were not performed. IMPRESSION This is an abnormal EEG due to follows 1. Moderate diffuse background slowing suggestive of generalized encephalopathy 2. Focal sharp wave activity was noted over the right central temporoparietal areas. This is however considered nonspecific focal interictal abnormality should be clinically correlated. No electrographic seizures were seen.
[2024-10-01 12:28] LABS: Glucose Point of Care 103 mg/dl (65-105)
--- NOTE | 2024-10-01 12:30 | WPDNEUROPN ---
Progress Note: A&P Assessment and Plan (1) Recent cerebrovascular accident: Code(s): Z86.73 - Personal history of transient ischemic attack (TIA), and cerebral infarction without residual deficits Status: Acute Assessment and Plan: CT scan brain shows old infarct in the right occipital and cerebellar areas in addition there is also infarct in the left temporal area. (2) Seizure disorder: Code(s): G40.909 - Epilepsy, unspecified, not intractable, without status epilepticus Status: Acute Plan Based upon the overall evaluation out suggest to increase the dose of Keppra to 1000 mg twice a day and continue supportive care. 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 Subjective Date/time seen: 10/01/24 12:30 Interval history: Patient is on sedation is unable to cooperate. History and records were reviewed. Review of Systems Review of Systems: ROS unobtainable: Yes unobtainable due to mental status Exam Narrative: Limited examination due to patient being under sedation. No posturing or involuntary movements are seen. Objective Data Vital Signs Vital Signs: Vital Signs - 24 hr 09/30/24 14:00 09/30/24 14:00 09/30/24 14:00 Temperature Pulse Rate 65 63 63 Respiratory Rate 17 15 Blood Pressure 138/76 Pulse Oximetry 93 Oxygen Delivery 09/30/24 16:00 09/30/24 16:00 09/30/24 16:00 Temperature 98.2 F Pulse Rate 67 67 Respiratory Rate 23 H 19 Blood Pressure 120/66 Pulse Oximetry 93 93 Oxygen Delivery Room Air 09/30/24 16:00 09/30/24 18:00 09/30/24 18:00 Temperature Pulse Rate 70 81 77 Respiratory Rate 14 Blood Pressure 127/85 Pulse Oximetry 94 Oxygen Delivery 09/30/24 18:00 09/30/24 19:49 09/30/24 20:00 Temperature Pulse Rate 77 81 Respiratory Rate 18 20 Blood Pressure Pulse Oximetry 96 Oxygen Delivery Room Air 09/30/24 20:00 09/30/24 20:00 09/30/24 20:14 Temperature 98.1 F Pulse Rate 79 79 78 Respiratory Rate 29 H 16 Blood Pressure 125/64 Pulse Oximetry 96 Oxygen Delivery 09/30/24 20:45 09/30/24 21:15 09/30/24 21:45 Temperature Pulse Rate 87 76 64 Respiratory Rate 15 18 19 Blood Pressure Pulse Oximetry Oxygen Delivery 09/30/24 22:00 09/30/24 22:00 09/30/24 22:07 Temperature Pulse Rate 74 74 73 Respiratory Rate 16 16 Blood Pressure 106/69 Pulse Oximetry 92 Oxygen Delivery 09/30/24 22:17 09/30/24 23:22 09/30/24 23:22 Temperature Pulse Rate 79 69 69 Respiratory Rate 17 19 19 Blood Pressure Pulse Oximetry Oxygen Delivery 10/01/24 00:00 10/01/24 00:00 10/01/24 00:00 Temperature 99.0 F Pulse Rate 81 81 Respiratory Rate 28 H Blood Pressure 153/96 H Pulse Oximetry 94 94 Oxygen Delivery Room Air 10/01/24 00:03 10/01/24 02:00 10/01/24 02:00 Temperature Pulse Rate 80 67 67 Respiratory Rate 25 H 18 Blood Pressure 147/78 H Pulse Oximetry 94 Oxygen Delivery 10/01/24 02:14 10/01/24 02:59 10/01/24 03:54 Temperature Pulse Rate 67 58 L 55 L Respiratory Rate 18 19 19 Blood Pressure Pulse Oximetry Oxygen Delivery 10/01/24 03:54 10/01/24 04:00 10/01/24 04:00 Temperature Pulse Rate 55 L 55 L Respiratory Rate 19 Blood Pressure Pulse Oximetry 95 Oxygen Delivery Room Air 10/01/24 04:00 10/01/24 06:00 10/01/24 06:00 Temperature 98.9 F Pulse Rate 55 L 55 L 55 L Respiratory Rate 19 20 Blood Pressure 138/68 129/66 Pulse Oximetry 95 93 Oxygen Delivery 10/01/24 06:01 10/01/24 06:27 10/01/24 06:58 Temperature Pulse Rate 55 L 55 L 55 L Respiratory Rate 20 20 20 Blood Pressure Pulse Oximetry Oxygen Delivery 10/01/24 07:35 10/01/24 08:00 10/01/24 08:00 Temperature 98.6 F Pulse Rate 70 59 L 61 Respiratory Rate 20 18 Blood Pressure 135/72 Pulse Oximetry 94 Oxygen Delivery 10/01/24 08:00 10/01/24 08:55 10/01/24 09:36 Temperature Pulse Rate 70 68 Respiratory Rate 20 18 Blood Pressure Pulse Oximetry 94 Oxygen Delivery Room Air 10/01/24 09:36 10/01/24 10:00 10/01/24 10:00 Temperature Pulse Rate 68 65 65 Respiratory Rate 18 18 Blood Pressure 146/74 H Pulse Oximetry 94 Oxygen Delivery 10/01/24 10:45 10/01/24 11:18 Temperature Pulse Rate 62 Respiratory Rate 18 Blood Pressure Pulse Oximetry 97 Oxygen Delivery Room Air Intake/Output Intake/Output: Intake & Output 09/28/24 09/29/24 09/30/24 10/01/24 23:59 23:59 23:59 23:59 Intake Total 1033.5 2528.7 2958.0 1556.2 Output Total 100 236 2709 625 Balance 833.5 1653.7 808.0 931.2 Meds/Results Medications: Active Medications Generic Name Dose Route Start Last Admin Trade Name Freq PRN Reason Stop Dose Admin Acetaminophen 650 mg 09/28/24 17:51 Acetaminophen 325 Mg Tablet PO Q4H PRN Mild Pain (1-3) or Fever Aspirin 150 mg 09/29/24 09:00 10/01/24 08:38 Aspirin 300 Mg Suppository RECTAL 150 mg DAILY LEAH Administration Dextrose 12.5 gm 09/28/24 17:37 Dextrose 50% 25 Gm/50 Ml Syringe IV PUSH PRN PRN Hypoglycemia Protocol Enoxaparin Sodium 40 mg 09/29/24 09:00 10/01/24 08:39 Enoxaparin 40 Mg/0.4 Ml Syringe SUB-Q 40 mg DAILY LEAH Administration Glucagon 1 mg 09/28/24 17:37 Glucagon For Inj 1 Mg Vial IM PRN PRN Hypoglycemia Protocol Glucose 15 gm 09/28/24 17:37 Glucose Oral Gel 15 Gm Of Glucse In 37.5 Gm Tube PO PRN PRN Hypoglycemia Protocol Hydralazine HCl 10 mg 09/30/24 07:38 Hydralazine Hcl 20 Mg/Ml Vial IV PUSH Q4H PRN Blood Pressure - High Azithromycin 500 mg in 250 mls @ 250 mls/hr 09/29/24 06:00 10/01/24 05:32 Zithromax IVPB 10/04/24 05:59 250 mls/hr Q24H LEAH Administration Ceftriaxone Sodium 1 gm in 50 mls @ 100 mls/hr 09/29/24 05:00 10/01/24 05:33 Rocephin 1 Gm/Ns 50 Ml IVPB 10/04/24 04:59 Infused Q24H LEAH Infusion Dextrose 1,000 mls @ 100 mls/hr 09/28/24 17:37 Dextrose 5% 1,000 Ml IVPB PRN PRN Hypoglycemia Protocol Metronidazole 500 mg in 100 mls @ 100 mls/hr 09/29/24 10:00 10/01/24 10:40 Flagyl 500 Mg/Iso Soln 100 Ml IVPB 10/04/24 09:59 Infused Q8H LEAH Infusion Lactated Ringer's 1,000 mls @ 75 mls/hr 09/29/24 10:10 10/01/24 03:54 Lr - Lactated Ringers Iv IV CONT 75 mls/hr .[id number] LEAH Administration Dexmedetomidine HCl 400 mcg in 100 mls @ 18.16 mls/hr 09/29/24 12:55 10/01/24 10:45 Precedex 400 Mcg/100 Ml IV CONT 0.8 mcg/kg/hr .[id number] LEAH 18.16 mls/hr Titration Protocol 0.8 MCG/KG/HR Levetiracetam 1,000 mg in 100 mls @ 400 mls/hr 10/01/24 21:00 Keppra Iv IVPB Q12HR [facility] Insulin Aspart 3 - 6 units 09/28/24 18:00 10/01/24 05:33 Insulin Aspart (*Bkc) 100 Units/Ml SUB-Q Not Given Q6HR [facility] Protocol Nitroglycerin 0.4 mg 09/30/24 17:50 09/30/24 18:00 Nitroglycerin Sl 0.4 Mg Tablet SUBLINGUAL 0.4 mg Q5MIN PRN Administration Chest Pain Ondansetron HCl 4 mg 09/28/24 17:51 Ondansetron Inj 4 Mg/2 Ml Vial IV PUSH Q6H PRN Nausea And Vomiting Pantoprazole Sodium 40 mg 09/30/24 09:00 10/01/24 08:39 Pantoprazole Sodium Iv 40 Mg Vial IV PUSH 40 mg QAM LEAH Administration Radiology Results: ITS Impressions Chest X-Ray 09/27/24 23:37 IMPRESSION: Left lower lobe atelectasis versus pneumonia. Cervical Spine CT 09/28/24 05:41 Impression: No fracture or subluxation of the cervical spine. Head/Neck CTA 09/28/24 05:42 Impression: Exam somewhat suboptimal due to motion artifact. No large vessel occlusion. There are probable moderate to high-grade stenoses in the cavernous portions of the distal internal carotid arteries related to atherosclerotic calcification. 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 Head CT 09/28/24 23:16 IMPRESSION: Hypodensity in the medial aspect of the left temporal lobe and occipital lobe which is highly suggestive of acute infarct. MRI evaluation advised. 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 Old infarct in the right cerebellar hemisphere. Carotid Doppler Study 09/29/24 12:29 Impression: Limited evaluation. Within the limitations of the examination, no sonographic evidence of flow-limiting stenosis in carotid arteries. Labs Labs: Laboratory Results - last 24 hr 09/30/24 09/30/24 09/30/24 12:49 17:15 18:42 WBC RBC Hgb Hct MCV MCH MCHC RDW Plt Count MPV Immature Gran % (Auto) Neut % (Auto) Lymph % (Auto) [place] % (Auto) Eos % (Auto) Baso % (Auto) Lymph # (Auto) [place] # (Auto) Eos # (Auto) Baso # (Auto) Abs Immat Gran (auto) Absolute Neuts (auto) Absolute Nucleated RBC Nucleated RBC % Sodium Potassium Chloride Carbon Dioxide Anion Gap BUN Creatinine Estim Creat Clear Calc Estimated GFR Glucose POC Capillary Glucose 94 84 Calcium Total Bilirubin AST ALT Alkaline Phosphatase Troponin I < 0.012 Total Protein Albumin 09/30/24 10/01/24 10/01/24 23:24 03:40 05:32 WBC 9.8 RBC 4.01 L Hgb 12.0 L Hct 37.3 L MCV 93.0 MCH 29.9 MCHC 32.2 RDW 14.6 H Plt Count 256 MPV 11.0 H Immature Gran % (Auto) 0.3 Neut % (Auto) 73.1 Lymph % (Auto) 14.1 L [place] % (Auto) 9.9 H Eos % (Auto) 2.1 Baso % (Auto) 0.5 Lymph # (Auto) 1.38 [place] # (Auto) 1.0 H Eos # (Auto) 0.2 Baso # (Auto) 0.1 Abs Immat Gran (auto) 0.03 Absolute Neuts (auto) 7.1 H Absolute Nucleated RBC 0.000 Nucleated RBC % 0.0 Sodium 137 Potassium 3.8 Chloride 106 Carbon Dioxide 14 L Anion Gap 17 H BUN 15 Creatinine 0.95 Estim Creat Clear Calc 80 Estimated GFR > 60 Glucose 122 H POC Capillary Glucose 100 136 H Calcium 8.5 Total Bilirubin 0.5 AST 35 ALT 18 Alkaline Phosphatase 67 Troponin I Total Protein 7.0 Albumin 3.9 10/01/24 12:26 WBC RBC Hgb Hct MCV MCH MCHC RDW Plt Count MPV Immature Gran % (Auto) Neut % (Auto) Lymph % (Auto) [place] % (Auto) Eos % (Auto) Baso % (Auto) Lymph # (Auto) [place] # (Auto) Eos # (Auto) Baso # (Auto) Abs Immat Gran (auto) Absolute Neuts (auto) Absolute Nucleated RBC Nucleated RBC % Sodium Potassium Chloride Carbon Dioxide Anion Gap BUN Creatinine Estim Creat Clear Calc Estimated GFR Glucose POC Capillary Glucose 103 Calcium Total Bilirubin AST ALT Alkaline Phosphatase Troponin I Total Protein Albumin
[2024-10-01] MEDS: dexmedeTOMIDine 400 MCG/100 ML 400 MCG/100 ML BAG 13.62 MCG IV CONT (15:15)
[2024-10-01 18:49] LABS: Glucose Point of Care 135 mg/dl (65-105)
[2024-10-01] MEDS: levETIRAcetam 1000MG/NACL100ML 1,000 MG/100 ML BAG 400 MG IVPB (20:11)
[2024-10-01] MEDS: dexmedeTOMIDine 400 MCG/100 ML 400 MCG/100 ML BAG 15.89 MCG IV CONT (20:51)
[2024-10-02] VITALS (22 sets, daily range): BP systolic 104–151; BP diastolic 62–79; PULSE 50–87; RESP 12–21; TEMP 36.6; O2SAT 95–99
[2024-10-02 00:15] LABS: Glucose Point of Care 118 mg/dl (65-105)
[2024-10-02] MEDS: metroNIDAZOLE 500 MG/ISO 100ML 500 MG/100 ML BAG 100 MG IVPB ×3 (02:25→18:48)
[2024-10-02] MEDS: dexmedeTOMIDine 400 MCG/100 ML 400 MCG/100 ML BAG 18.16 MCG IV CONT (02:27)
[2024-10-02 04:56] LABS: Basophils Percent Auto 0.4 % (0.2-1.2); Eosinophils Absolute Auto 0.1 K/mm3 (0-0.3); Eosinophils Percent Auto 1.3 % (0-4.4); Hematocrit 38.9 % (42.0-52.0); Hemoglobin 12.8 g/dL (14.0-18.0); Immature Granulocyte Absolute 0.04 K/mm3 (0.00-0.031); Immature Granulocyte Percent A 0.4 % (0-0.5); Lymphocytes Absolute Auto 1.32 K/mm3 (0.9-3.2); Mean Corpuscular HGB Conc 32.9 g/dl (32-36); Mean Corpuscular Hemoglobin 30.2 pg (26-34); Mean Corpuscular Volume 91.7 fl (80-100); Mean Platelet Volume 11.3 fl (7.4-10.4); Monocytes Percent Auto 9.8 % (2.6-8.5); Neutrophils Absolute Auto 7.7 K/mm3 (1.3-6.7); Neutrophils Percent Auto 75.1 % (45.5-73.1); Platelet Count Result 261 k/mm3 (150-375); Red Blood Count 4.24 M/mm3 (4.6-6.20); Red Cell Distribution Width 14.3 % (11.5-14.5); White Blood Count 10.2 K/mm3 (4.5-10.0)
[2024-10-02 05:10] LABS: Alanine Aminotransferase 16 U/L (6-50); Albumin Level 3.9 g/dL (3.5-5.1); Alkaline Phosphatase 64 U/L (38-126); Anion Gap 20 mmol/L (4-12); Aspartate Amino Transferase 27 U/L (17-59); Bilirubin,Total 0.5 mg/dL (0.2-1.3); Blood Urea Nitrogen 14 mg/dL (9-20); Calcium 8.4 mg/dL (8.4-10.2); Carbon Dioxide 14 mmol/L (22-30); Chloride 102 mmol/L (98-107); Estimated CRCL calculation 79 ml/min; Estimated Glomerular Filt Rate > 60; Glucose 110 mg/dL (65-110); Magnesium 1.7 mg/dL (1.6-2.3); Phosphorus 2.7 mg/dL (2.5-4.5); Sodium 136 mmol/L (137-145)
[2024-10-02] MEDS: AZITHROMYCIN 500 MG/NS 250 ML 500 MG/250 ML BAG 250 MG IVPB (05:16)
--- NOTE | 2024-10-02 08:36 | P.PNINT_ITS ---
Progress Note: A&P Assessment and Plan (1) Acute encephalopathy: Code(s): G93.40 - Encephalopathy, unspecified Status: Acute Assessment and Plan: Patient presented with altered mental status, fall On the evening of 09/28, patient had moved delirium, agitation, combativeness, was placed in 4 point restraints. Patient was transferred to the ICU for possible Precedex infusion. -repeat CT scan of the brain upon arrival to the ICU: Hypodensity in the medial aspect of the left temporal lobe and occipital lobe which is highly suggestive of acute infarct. 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 Old infarct in the right cerebellar hemisphere. -patient started on rectal aspirin. Unable to take p.o. statin as he is NPO for now due to altered mental status -MRI has been ordered -appreciate Neurology evaluation recommendation, -continue neuro check per protocol -maintain adequate blood pressures-allow permissive hypertension -unable to do MRI as patient would not stay still, are pumps for Precedex infusion cannot go into the MRI suite -10/01: EE. Moderate diffuse background slowing suggestive of generalized encephalopathy 2. Focal sharp wave activity was noted over the right central temporoparietal areas. This is however considered nonspecific focal interictal abnormality should be clinically correlated. No electrographic seizures were seen 09/27: CT brain: No acute intracranial finding 09/27: Chest x-ray shows left lower lobe atelectasis versus pneumonia 09/28: CT cervical spine: No fracture or subluxation of the cervical spine 09/28: CTA head and neck: Exam somewhat suboptimal due to motion artifact. No large vessel occlusion. 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 (2) Acute kidney injury: Code(s): N17.9 - Acute kidney failure, unspecified Status: Acute Assessment and Plan: Acute kidney injury could be related to hypovolemia, patient was adequately fluid-resuscitated -urine output has been adequate -creatinine has normalized -continue IV fluids -monitor urine output, renal function electrolytes (3) Hypertension: Qualifiers: Hypertension type: primary hypertension Qualified Code(s): I10 - Essential (primary) hypertension Code(s): I10 - Essential (primary) hypertension Status: Acute Assessment and Plan: Hold all antihypertensives since patient acute stroke, will allow permissive hypertension (4) ILANA on CPAP: Code(s): G47.33 - Obstructive sleep apnea (adult) (pediatric) Status: Chronic Assessment and Plan: Obstructive sleep apnea on CPAP at night -if patient has altered mental status with avoid CPAP mask (5) Pneumonia: Qualifiers: Laterality: left Lung location: lower lobe of lung Pneumonia type: due to unspecified organism Qualified Code(s): J18.9 - Pneumonia, unspecified organism Code(s): J18.9 - Pneumonia, unspecified organism Status: Acute Assessment and Plan: Chest x-ray on admission showed left lower lobe atelectasis versus pneumonia -could be related to aspiration pneumonitis -continue azithromycin, ceftriaxone (09/28) -continue Flagyl (09/29) (6) Type 2 diabetes mellitus: Qualifiers: Diabetes mellitus mcc insulin use: with mcc use Diabetes mellitus complication status: with circulatory complication Diabetes mellitus complication detail: with other circulatory complications Qualified Code(s): E11.59 - Type 2 diabetes mellitus with other circulatory complications; Z79.4 - terminal block assembler (current) use of insulin Code(s): E11.9 - Type 2 diabetes mellitus without complications Status: Acute Assessment and Plan: Continue Accu-Cheks and sliding scale insulin (7) Seizure disorder: Code(s): G40.909 - Epilepsy, unspecified, not intractable, without status epilepticus Status: Acute Assessment and Plan: Patient takes carbamazepine 200 mg PO Q 8 hours at home -currently NPO, -10/01: Increased Keppra to 1000 mg q.12 hours -neurology follow -10/01: EE. Moderate diffuse background slowing suggestive of generalized encephalopathy 2. Focal sharp wave activity was noted over the right central temporoparietal areas. This is however considered nonspecific focal interictal abnormality should be clinically correlated. No electrographic seizures were seen (8) Electrolyte imbalance: Code(s): E87.8 - Other disorders of electrolyte and fluid balance, not elsewhere classified Status: Acute Assessment and Plan: Will replace magnesium Plan DVT prophylaxis: Enoxaparin Stress ulcer prophylaxis: Protonix Nutrition: NPO, patient may require NG tube Code Status: Full code Critical Care Time Spent: 32 minutes 10/01: Discussed at length with patient's spouse Shahrzad, updated with patient's condition and plan of care. I also discussed with her regarding the new stroke seen on CT scan of the brain. I also discussed at length the patient has been declining at home and in the hospital, she stated she will discuss with her son and decide about hospice as she wants him to come home. Due to a high probability of clinically significant, life threatening deterioration, the patient required my highest level of preparedness to intervene emergently and I personally spent this critical care time directly and personally managing the patient. This critical care time included obtaining a history; examining the patient; pulse oximetry; ordering and review of studies; arranging urgent treatment with development of a management plan; evaluation of patient's response to treatment; frequent reassessment; and discussions with other providers. It was exclusive of separately billable procedures and treating other patients and teaching time. Please see Assessment and Plan section and the rest of the note for further information on patient assessment and treatment This dictation may have been done utilizing a voice recognition system. Attempts have been made to correct errors. However, there may be uncorrected grammatical, spelling, and recognitions errors present. Subjective Date/time seen: 10/02/24 08:36 Interval history: Reason for consult: Acute ischemic stroke, delirium, agitation, combative behavior 64yo male with DM, seizure disorder, CVA, kidney stones, HTN, CAD s/p stent placement and CABG, ILANA, former smoker who presented to the hospital with altered mental status and fall. 10/02/2024: Patient seen and examined the ICU, remains on Precedex infusion. Patient is awake, opens his eyes to name but does not follow simple commands, withdraws to pain in all extremities. Afebrile, urine output has been adequate, hemodynamically stable Review of Systems Review of Systems: ROS unobtainable: Yes unobtainable due to medical condition and unobtainable due to mental status Exam Narrative: General: Laying in bed comfortably, in no acute distress HEENT:? Pupils equal and reactive, sclera is clear Neck:? Supple Respiratory:? Clear to auscultation bilaterally, decreased at bases bilaterally with no wheezing, adequate air entry Cardiac:? S1-S2 normal, regular rate and rhythm Abdomen:? Soft, non tender, non distended, normoactive bowels Extremities:? Normal tone in upper and lower extremities, palpable pedal pulses, no edema Neuro:? Patient is awake, opens eyes to name, does not follow simpl commands but withdraws to pain Skin:? Warm and dry Psych:? Unable to assess at this time Objective Data Vital Signs Vital Signs: Vital Signs - 24 hr 10/01/24 08:55 10/01/24 09:36 10/01/24 09:36 Temperature Pulse Rate 70 68 68 Respiratory Rate 20 18 18 Blood Pressure Pulse Oximetry Oxygen Delivery Fraction of Inspired Oxygen 10/01/24 10:00 10/01/24 10:00 10/01/24 10:45 Temperature Pulse Rate 65 65 62 Respiratory Rate 18 18 Blood Pressure 146/74 H Pulse Oximetry 94 Oxygen Delivery Fraction of Inspired Oxygen 10/01/24 11:18 10/01/24 12:00 10/01/24 12:00 Temperature 97.7 F Pulse Rate 57 L Respiratory Rate 18 Blood Pressure 151/72 H Pulse Oximetry 97 96 96 Oxygen Delivery Room Air Room Air Fraction of Inspired Oxygen 10/01/24 12:00 10/01/24 12:34 10/01/24 14:00 Temperature Pulse Rate 57 L 57 L 54 L Respiratory Rate 18 Blood Pressure Pulse Oximetry Oxygen Delivery Fraction of Inspired Oxygen 10/01/24 14:00 10/01/24 14:00 10/01/24 15:15 Temperature Pulse Rate 54 L 54 L 53 L Respiratory Rate 18 18 18 Blood Pressure 158/76 H Pulse Oximetry 97 Oxygen Delivery Fraction of Inspired Oxygen 10/01/24 15:15 10/01/24 16:00 10/01/24 16:00 Temperature 98.0 F Pulse Rate 53 L 72 72 Respiratory Rate 18 20 20 Blood Pressure 148/94 H Pulse Oximetry 96 Oxygen Delivery Fraction of Inspired Oxygen 10/01/24 16:00 10/01/24 16:00 10/01/24 18:00 Temperature Pulse Rate 71 56 L Respiratory Rate 18 Blood Pressure Pulse Oximetry 96 Oxygen Delivery Room Air Fraction of Inspired Oxygen 10/01/24 18:00 10/01/24 18:00 10/01/24 20:00 Temperature 97.6 F Pulse Rate 56 L 56 L 58 L Respiratory Rate 18 17 Blood Pressure 169/74 H 161/77 H Pulse Oximetry 96 96 Oxygen Delivery Fraction of Inspired Oxygen 10/01/24 20:00 10/01/24 20:00 10/01/24 20:00 Temperature Pulse Rate 55 L 55 L 53 L Respiratory Rate 16 16 Blood Pressure Pulse Oximetry 96 Oxygen Delivery Room Air Fraction of Inspired Oxygen 21 10/01/24 20:51 10/01/24 20:51 10/01/24 22:00 Temperature Pulse Rate 55 L 55 L 68 Respiratory Rate 16 16 Blood Pressure Pulse Oximetry Oxygen Delivery Fraction of Inspired Oxygen 10/01/24 22:00 10/01/24 22:00 10/01/24 22:30 Temperature Pulse Rate 70 68 75 Respiratory Rate 18 18 20 Blood Pressure 157/76 H Pulse Oximetry 95 Oxygen Delivery Fraction of Inspired Oxygen 10/02/24 00:00 10/02/24 00:00 10/02/24 00:00 Temperature 97.8 F Pulse Rate 64 68 73 Respiratory Rate 20 20 Blood Pressure 118/76 Pulse Oximetry 96 Oxygen Delivery Fraction of Inspired Oxygen 10/02/24 00:20 10/02/24 02:00 10/02/24 02:00 Temperature Pulse Rate 64 55 L 65 Respiratory Rate 20 16 Blood Pressure Pulse Oximetry 95 Oxygen Delivery Room Air Fraction of Inspired Oxygen 10/02/24 02:00 10/02/24 02:27 10/02/24 02:27 Temperature Pulse Rate 65 55 L 59 L Respiratory Rate 21 H 16 16 Blood Pressure 142/68 H Pulse Oximetry 95 Oxygen Delivery Fraction of Inspired Oxygen 10/02/24 04:00 10/02/24 04:00 10/02/24 04:00 Temperature 98 F Pulse Rate 60 51 L 51 L Respiratory Rate 18 17 Blood Pressure 141/72 H Pulse Oximetry 95 Oxygen Delivery Fraction of Inspired Oxygen 10/02/24 04:50 10/02/24 06:00 10/02/24 06:00 Temperature Pulse Rate 51 L 87 55 L Respiratory Rate 17 16 Blood Pressure 104/62 Pulse Oximetry 95 96 Oxygen Delivery Room Air Fraction of Inspired Oxygen 21 Intake/Output Intake/Output: Intake & Output 09/29/24 09/30/24 10/01/24 10/02/24 23:59 23:59 23:59 23:59 Intake Total 2528.7 2958.0 3204.4 199.8 Output Total 875 2150 2025 900 Balance 1653.7 808.0 1179.4 -700.2 Meds/Results Medications: Active Medications Generic Name Dose Route Start Last Admin Trade Name Freq PRN Reason Stop Dose Admin Acetaminophen 650 mg 09/28/24 17:51 Acetaminophen 325 Mg Tablet PO Q4H PRN Mild Pain (1-3) or Fever Aspirin 150 mg 09/29/24 09:00 10/01/24 08:38 Aspirin 300 Mg Suppository RECTAL 150 mg DAILY LEAH Administration Dextrose 12.5 gm 09/28/24 17:37 Dextrose 50% 25 Gm/50 Ml Syringe IV PUSH PRN PRN Hypoglycemia Protocol Enoxaparin Sodium 40 mg 09/29/24 09:00 10/01/24 08:39 Enoxaparin 40 Mg/0.4 Ml Syringe SUB-Q 40 mg DAILY LEAH Administration Glucagon 1 mg 09/28/24 17:37 Glucagon For Inj 1 Mg Vial IM PRN PRN Hypoglycemia Protocol Glucose 15 gm 09/28/24 17:37 Glucose Oral Gel 15 Gm Of Glucse In 37.5 Gm Tube PO PRN PRN Hypoglycemia Protocol Hydralazine HCl 10 mg 09/30/24 07:38 Hydralazine Hcl 20 Mg/Ml Vial IV PUSH Q4H PRN Blood Pressure - High Azithromycin 500 mg in 250 mls @ 250 mls/hr 09/29/24 06:00 10/02/24 05:16 Zithromax IVPB 10/04/24 05:59 250 mls/hr Q24H LEAH Administration Ceftriaxone Sodium 1 gm in 50 mls @ 100 mls/hr 09/29/24 05:00 10/02/24 04:45 Rocephin 1 Gm/Ns 50 Ml IVPB 10/04/24 04:59 100 mls/hr Q24H LEAH Administration Dextrose 1,000 mls @ 100 mls/hr 09/28/24 17:37 Dextrose 5% 1,000 Ml IVPB PRN PRN Hypoglycemia Protocol Metronidazole 500 mg in 100 mls @ 100 mls/hr 09/29/24 10:00 10/02/24 03:25 Flagyl 500 Mg/Iso Soln 100 Ml IVPB 10/04/24 09:59 Infused Q8H LEAH Infusion Lactated Ringer's 1,000 mls @ 75 mls/hr 09/29/24 10:10 10/01/24 18:44 Lr - Lactated Ringers Iv IV CONT 75 mls/hr .[id number] LEAH Administration Dexmedetomidine HCl 400 mcg in 100 mls @ 18.16 mls/hr 09/29/24 12:55 10/02/24 04:00 Precedex 400 Mcg/100 Ml IV CONT 0.8 mcg/kg/hr .[id number] LEAH 18.16 mls/hr Titration Protocol 0.8 MCG/KG/HR Levetiracetam 1,000 mg in 100 mls @ 400 mls/hr 10/01/24 21:00 10/01/24 20:26 Keppra Iv IVPB Infused Q12HR LEAH Infusion Magnesium Sulfate 2 gm in 50 mls @ 50 mls/hr 10/02/24 07:30 Magnesium Sulf 2 Gm/Water 50ml IVPB 10/02/24 08:29 ONCE ONE Insulin Aspart 3 - 6 units 09/28/24 18:00 10/02/24 05:22 Insulin Aspart (*Bkc) 100 Units/Ml SUB-Q Not Given Q6HR [facility] Protocol Nitroglycerin 0.4 mg 09/30/24 17:50 09/30/24 18:00 Nitroglycerin Sl 0.4 Mg Tablet SUBLINGUAL 0.4 mg Q5MIN PRN Administration Chest Pain Ondansetron HCl 4 mg 09/28/24 17:51 Ondansetron Inj 4 Mg/2 Ml Vial IV PUSH Q6H PRN Nausea And Vomiting Pantoprazole Sodium 40 mg 09/30/24 09:00 10/01/24 08:39 Pantoprazole Sodium Iv 40 Mg Vial IV PUSH 40 mg QAM LEAH Administration Radiology Results: ITS Impressions Chest X-Ray 09/27/24 23:37 IMPRESSION: Left lower lobe atelectasis versus pneumonia. Cervical Spine CT 09/28/24 05:41 Impression: No fracture or subluxation of the cervical spine. Head/Neck CTA 09/28/24 05:42 Impression: Exam somewhat suboptimal due to motion artifact. No large vessel occlusion. There are probable moderate to high-grade stenoses in the cavernous portions of the distal internal carotid arteries related to atherosclerotic calcification. 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 Head CT 09/28/24 23:16 IMPRESSION: Hypodensity in the medial aspect of the left temporal lobe and occipital lobe which is highly suggestive of acute infarct. MRI evaluation advised. 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 Old infarct in the right cerebellar hemisphere. Carotid Doppler Study 09/29/24 12:29 Impression: Limited evaluation. Within the limitations of the examination, no sonographic evidence of flow-limiting stenosis in carotid arteries. Labs Labs: Laboratory Results - last 24 hr 10/01/24 10/01/24 10/02/24 12:26 18:43 00:12 WBC RBC Hgb Hct MCV MCH MCHC RDW Plt Count MPV Immature Gran % (Auto) Neut % (Auto) Lymph % (Auto) [place] % (Auto) Eos % (Auto) Baso % (Auto) Lymph # (Auto) [place] # (Auto) Eos # (Auto) Baso # (Auto) Abs Immat Gran (auto) Absolute Neuts (auto) Absolute Nucleated RBC Nucleated RBC % Sodium Potassium Chloride Carbon Dioxide Anion Gap BUN Creatinine Estim Creat Clear Calc Estimated GFR Glucose POC Capillary Glucose 103 135 H 118 H Calcium Phosphorus Magnesium Total Bilirubin AST ALT Alkaline Phosphatase Total Protein Albumin 10/02/24 04:41 WBC 10.2 H RBC 4.24 L Hgb 12.8 L Hct 38.9 L MCV 91.7 MCH 30.2 MCHC 32.9 RDW 14.3 Plt Count 261 MPV 11.3 H Immature Gran % (Auto) 0.4 Neut % (Auto) 75.1 H Lymph % (Auto) 13.0 L [place] % (Auto) 9.8 H Eos % (Auto) 1.3 Baso % (Auto) 0.4 Lymph # (Auto) 1.32 [place] # (Auto) 1.0 H Eos # (Auto) 0.1 Baso # (Auto) 0.0 Abs Immat Gran (auto) 0.04 H Absolute Neuts (auto) 7.7 H Absolute Nucleated RBC 0.000 Nucleated RBC % 0.0 Sodium 136 L Potassium 4.0 Chloride 102 Carbon Dioxide 14 L Anion Gap 20 H BUN 14 Creatinine 0.96 Estim Creat Clear Calc 79 Estimated GFR > 60 Glucose 110 POC Capillary Glucose Calcium 8.4 Phosphorus 2.7 Magnesium 1.7 Total Bilirubin 0.5 AST 27 ALT 16 Alkaline Phosphatase 64 Total Protein 7.0 Albumin 3.9 Quality VTE Prophylaxis VTE prophylaxis: pharmacologic ordered
[2024-10-02] MEDS: dexmedeTOMIDine 400 MCG/100 ML 400 MCG/100 ML BAG 13.62 MCG IV CONT (09:29)
[2024-10-02] MEDS: MAGNESIUM SULF 2 GM/WATER 50ML 2 GM/50 ML BAG IVPB (09:30)
[2024-10-02] MEDS: levETIRAcetam 1000MG/NACL100ML 1,000 MG/100 ML BAG 400 MG IVPB ×2 (09:31→20:40)
[2024-10-02] MEDS: ASPIRIN 300 MG SUPPOSITORY 150 MG RECTAL (09:33)
[2024-10-02] MEDS: PANTOPRAZOLE SODIUM IV 40 MG VIAL IV PUSH (09:33)
[2024-10-02] MEDS: ENOXAPARIN 40 MG/0.4 ML SYRINGE SUB-Q (09:34)
--- NOTE | 2024-10-02 10:42 | PCNFU ---
Nutrition Follow-Up Complete: Inadequate Oral intake as related to possible CVA as evidenced by NPO. Goal: Meet estimated nutritional needs. Patient has limited progressing towards goal. We will continue current goal. Pt current nutrition is NPO. Last recorded weight is 94.7 kg. Bowel Motility: Last reported BM 09/30 Labs Reviewed:Na 136, Hgb 12.8, Hct 38.9 Meds Noted: Precedex Keppra, Lovenox, LR, Flagyl, Rocephin. Skin: DM ulcer-right 3rd Toe, Right heel Additional Notes: Patient remains NPO. Nursing is reporting garbled speech. EEG showing moderate slowing. Discussions in rounds regarding Hospice care. Will monitor weight , labs, skin, diet orders, meds daily.
[2024-10-02 12:47] LABS: Glucose Point of Care 103 mg/dl (65-105)
[2024-10-02] MEDS: LACTATED RINGERS 1,000 ML 75 ML IV CONT (15:42)
--- NOTE | 2024-10-02 17:18 | P.PNIM_ITS ---
Progress Note: A&P Assessment and Plan (1) Acute encephalopathy: Code(s): G93.40 - Encephalopathy, unspecified Status: Acute Assessment and Plan: Patient presented with altered mental status and fall. VBG 7.42/42/27 on 1L. Cr 1.32, serum bicarb 18 (AG 16), Lactic 3.6, PCT 0.1 and elevated Trop. UDS negative. Head CT showing old CVAs but no acute process. Cervical spine CT showing no fracture or subluxation. 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 Patient was admitted but on the evening of 09/28, he had delirium, agitation, co mbativeness, was placed in 4 point restraints. Patient was transferred to the ICU for possible Precedex infusion. Repeat Head CT showing a hypodensity in the medial aspect of the left temporal lobe and occipital lobe which is highly suggestive of acute infarct. Consider acute CVA. Consider seizure given the elevated lactic and other findings. Brain MR results pending Patient started on rectal aspirin. Unable to take p.o. statin as he is NPO for now due to altered mental status Neurology has been consulted Precedex started and calmer now. Wean off Precedex as tolerated. Monitor closely in ICU (2) Acute kidney injury: Code(s): N17.9 - Acute kidney failure, unspecified Status: Acute Assessment and Plan: Patient with a mild ISR[place]. Cr 1.32 on admission. Varnell related to hypovolemia. Patient was adequately fluid-resuscitated. Cr normal now. Monitor urine output, renal function and electrolytes (3) Pneumonia: Qualifiers: Laterality: left Lung location: lower lobe of lung Pneumonia type: due to unspecified organism Qualified Code(s): J18.9 - Pneumonia, unspecified organism Code(s): J18.9 - Pneumonia, unspecified organism Status: Acute Assessment and Plan: Chest x-ray on admission showed left lower lobe atelectasis versus pneumonia Could be related to aspiration pneumonitis Started on azithromycin, ceftriaxone (09/28) Flagyl added (09/29) On RA (4) Hypertension: Qualifiers: Hypertension type: primary hypertension Qualified Code(s): I10 - Essential (primary) hypertension Code(s): I10 - Essential (primary) hypertension Status: Acute Assessment and Plan: Hold all antihypertensives since patient acute stroke Allow for permissive hypertension (5) ILANA on CPAP: Code(s): G47.33 - Obstructive sleep apnea (adult) (pediatric) Status: Chronic Assessment and Plan: Obstructive sleep apnea on CPAP at night Hold off on CPAP until patient is more awake and alert. VBG noted. 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 Continue AccuCheks covering with sliding scale. Hypoglycemia protocol available as needed. Continue to monitor (7) Seizure disorder: Code(s): G40.909 - Epilepsy, unspecified, not intractable, without status epilepticus Status: Acute Assessment and Plan: Consider seizure prior to admission. Patient takes carbamazepine 200 mg PO Q 8 hours at home Currently NPO Keppra IV started Follow. Seizure precautions. Plan today patient remains on Precedex, still confused and restrained, comfortable and stable, family is considering hospice for the patient, patient is seen by sheet metal supervisor and appreciate. Subjective Date/time seen: 10/02/24 17:18 Interval history: 64yo male with DM, seizure disorder, CVA, kidney stones, HTN, CAD s/p stent placement and CABG, ILANA, former smoker who presented to the hospital with altered mental status and fall. Patient awake but not alert and remains confused. Per RN, he is combative and hallucinating at times. He remains on precedex today patient remains on Precedex, still confused and restrained, comfortable and stable, family is considering hospice for the patient, patient is seen by sheet metal supervisor and appreciate. Review of Systems Review of Systems: ROS unobtainable: Yes unobtainable due to mental status Exam Narrative: Patient is comfortable, NAD HEENT: eyes are clear and none icteric LUNGS:CTA HEART: RR S1S2 ABD: BS+, Soft and nontender Lower extremities: no edema upper and lower extremities soft restrains. SKIN: nonjaundiced Neuro: grossly intact but confused. Objective Data Vital Signs Vital Signs: Vital Signs - 24 hr 10/01/24 18:00 10/01/24 18:00 10/01/24 18:00 Temperature Pulse Rate 56 L 56 L 56 L Respiratory Rate 18 18 Blood Pressure 169/74 H Pulse Oximetry 96 Oxygen Delivery Fraction of Inspired Oxygen 10/01/24 20:00 10/01/24 20:00 10/01/24 20:00 Temperature 36.4 C Pulse Rate 58 L 55 L 55 L Respiratory Rate 17 16 16 Blood Pressure 161/77 H Pulse Oximetry 96 96 Oxygen Delivery Room Air Fraction of Inspired Oxygen 21 10/01/24 20:00 10/01/24 20:51 10/01/24 20:51 Temperature Pulse Rate 53 L 55 L 55 L Respiratory Rate 16 16 Blood Pressure Pulse Oximetry Oxygen Delivery Fraction of Inspired Oxygen 10/01/24 22:00 10/01/24 22:00 10/01/24 22:00 Temperature Pulse Rate 68 70 68 Respiratory Rate 18 18 Blood Pressure 157/76 H Pulse Oximetry 95 Oxygen Delivery Fraction of Inspired Oxygen 10/01/24 22:30 10/02/24 00:00 10/02/24 00:00 Temperature 36.6 C Pulse Rate 75 64 68 Respiratory Rate 20 20 20 Blood Pressure 118/76 Pulse Oximetry 96 Oxygen Delivery Fraction of Inspired Oxygen 10/02/24 00:00 10/02/24 00:20 10/02/24 02:00 Temperature Pulse Rate 73 64 55 L Respiratory Rate 20 16 Blood Pressure Pulse Oximetry 95 Oxygen Delivery Room Air Fraction of Inspired Oxygen 10/02/24 02:00 10/02/24 02:00 10/02/24 02:27 Temperature Pulse Rate 65 65 55 L Respiratory Rate 21 H 16 Blood Pressure 142/68 H Pulse Oximetry 95 Oxygen Delivery Fraction of Inspired Oxygen 10/02/24 02:27 10/02/24 04:00 10/02/24 04:00 Temperature 36.6 C Pulse Rate 59 L 60 51 L Respiratory Rate 16 18 17 Blood Pressure 141/72 H Pulse Oximetry 95 Oxygen Delivery Fraction of Inspired Oxygen 10/02/24 04:00 10/02/24 04:50 10/02/24 06:00 Temperature Pulse Rate 51 L 51 L 87 Respiratory Rate 17 Blood Pressure Pulse Oximetry 95 Oxygen Delivery Room Air Fraction of Inspired Oxygen 21 10/02/24 06:00 10/02/24 08:00 10/02/24 08:00 Temperature Pulse Rate 55 L 56 L 55 L Respiratory Rate 16 16 Blood Pressure 104/62 121/69 Pulse Oximetry 96 95 Oxygen Delivery Fraction of Inspired Oxygen 10/02/24 08:00 10/02/24 09:29 10/02/24 09:29 Temperature Pulse Rate 55 L 55 L 55 L Respiratory Rate 15 17 17 Blood Pressure Pulse Oximetry 96 Oxygen Delivery Room Air Fraction of Inspired Oxygen 10/02/24 09:59 10/02/24 10:00 10/02/24 10:00 Temperature Pulse Rate 55 L 53 L 53 L Respiratory Rate 17 17 Blood Pressure 135/73 Pulse Oximetry 96 Oxygen Delivery Fraction of Inspired Oxygen 10/02/24 12:00 10/02/24 12:00 10/02/24 12:00 Temperature Pulse Rate 53 L 53 L 53 L Respiratory Rate 16 16 Blood Pressure 120/66 Pulse Oximetry 97 96 Oxygen Delivery Room Air Fraction of Inspired Oxygen Intake/Output Intake/Output: Intake & Output 09/29/24 09/30/24 10/01/24 10/02/24 23:59 23:59 23:59 23:59 Intake Total 2528.7 2958.0 3204.4 1528.5 Output Total 875 2150 2025 900 Balance 1653.7 808.0 1179.4 628.5 Meds/Results Medications: Active Medications Generic Name Dose Route Start Last Admin Trade Name Freq PRN Reason Stop Dose Admin Acetaminophen 650 mg 09/28/24 17:51 Acetaminophen 325 Mg Tablet PO Q4H PRN Mild Pain (1-3) or Fever Aspirin 150 mg 09/29/24 09:00 10/02/24 09:33 Aspirin 300 Mg Suppository RECTAL 150 mg DAILY LEAH Administration Dextrose 12.5 gm 09/28/24 17:37 Dextrose 50% 25 Gm/50 Ml Syringe IV PUSH PRN PRN Hypoglycemia Protocol Enoxaparin Sodium 40 mg 09/29/24 09:00 10/02/24 09:34 Enoxaparin 40 Mg/0.4 Ml Syringe SUB-Q 40 mg DAILY LEAH Administration Glucagon 1 mg 09/28/24 17:37 Glucagon For Inj 1 Mg Vial IM PRN PRN Hypoglycemia Protocol Glucose 15 gm 09/28/24 17:37 Glucose Oral Gel 15 Gm Of Glucse In 37.5 Gm Tube PO PRN PRN Hypoglycemia Protocol Hydralazine HCl 10 mg 09/30/24 07:38 Hydralazine Hcl 20 Mg/Ml Vial IV PUSH Q4H PRN Blood Pressure - High Azithromycin 500 mg in 250 mls @ 250 mls/hr 09/29/24 06:00 10/02/24 05:16 Zithromax IVPB 10/04/24 05:59 250 mls/hr Q24H LEAH Administration Ceftriaxone Sodium 1 gm in 50 mls @ 100 mls/hr 09/29/24 05:00 10/02/24 04:45 Rocephin 1 Gm/Ns 50 Ml IVPB 10/04/24 04:59 100 mls/hr Q24H LEAH Administration Dextrose 1,000 mls @ 100 mls/hr 09/28/24 17:37 Dextrose 5% 1,000 Ml IVPB PRN PRN Hypoglycemia Protocol Metronidazole 500 mg in 100 mls @ 100 mls/hr 09/29/24 10:00 10/02/24 10:30 Flagyl 500 Mg/Iso Soln 100 Ml IVPB 10/04/24 09:59 Infused Q8H LEAH Infusion Lactated Ringer's 1,000 mls @ 75 mls/hr 09/29/24 10:10 10/02/24 15:42 Lr - Lactated Ringers Iv IV CONT 75 mls/hr .[id number] LEAH Administration Dexmedetomidine HCl 400 mcg in 100 mls @ 11.35 mls/hr 09/29/24 12:55 10/02/24 09:59 Precedex 400 Mcg/100 Ml IV CONT 0.5 mcg/kg/hr .[id number] LEAH 11.35 mls/hr Titration Protocol 0.5 MCG/KG/HR Levetiracetam 1,000 mg in 100 mls @ 400 mls/hr 10/01/24 21:00 10/02/24 09:46 Keppra Iv IVPB Infused Q12HR LEAH Infusion Insulin Aspart 3 - 6 units 09/28/24 18:00 10/02/24 15:41 Insulin Aspart (*Bkc) 100 Units/Ml SUB-Q Not Given Q6HR LEAH Protocol Nitroglycerin 0.4 mg 09/30/24 17:50 09/30/24 18:00 Nitroglycerin Sl 0.4 Mg Tablet SUBLINGUAL 0.4 mg Q5MIN PRN Administration Chest Pain Ondansetron HCl 4 mg 09/28/24 17:51 Ondansetron Inj 4 Mg/2 Ml Vial IV PUSH Q6H PRN Nausea And Vomiting Pantoprazole Sodium 40 mg 09/30/24 09:00 10/02/24 09:33 Pantoprazole Sodium Iv 40 Mg Vial IV PUSH 40 mg QAM LEAH Administration Radiology Results: ITS Impressions Chest X-Ray 09/27/24 23:37 IMPRESSION: Left lower lobe atelectasis versus pneumonia. Cervical Spine CT 09/28/24 05:41 Impression: No fracture or subluxation of the cervical spine. Head/Neck CTA 09/28/24 05:42 Impression: Exam somewhat suboptimal due to motion artifact. No large vessel occlusion. There are probable moderate to high-grade stenoses in the cavernous portions of the distal internal carotid arteries related to atherosclerotic calcification. 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 Head CT 09/28/24 23:16 IMPRESSION: Hypodensity in the medial aspect of the left temporal lobe and occipital lobe which is highly suggestive of acute infarct. MRI evaluation advised. 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 Old infarct in the right cerebellar hemisphere. Carotid Doppler Study 09/29/24 12:29 Impression: Limited evaluation. Within the limitations of the examination, no sonographic evidence of flow-limiting stenosis in carotid arteries. Labs Labs: Laboratory Results - last 24 hr 10/01/24 10/02/24 10/02/24 18:43 00:12 04:41 WBC 10.2 H RBC 4.24 L Hgb 12.8 L Hct 38.9 L MCV 91.7 MCH 30.2 MCHC 32.9 RDW 14.3 Plt Count 261 MPV 11.3 H Immature Gran % (Auto) 0.4 Neut % (Auto) 75.1 H Lymph % (Auto) 13.0 L [place] % (Auto) 9.8 H Eos % (Auto) 1.3 Baso % (Auto) 0.4 Lymph # (Auto) 1.32 [place] # (Auto) 1.0 H Eos # (Auto) 0.1 Baso # (Auto) 0.0 Abs Immat Gran (auto) 0.04 H Absolute Neuts (auto) 7.7 H Absolute Nucleated RBC 0.000 Nucleated RBC % 0.0 Sodium 136 L Potassium 4.0 Chloride 102 Carbon Dioxide 14 L Anion Gap 20 H BUN 14 Creatinine 0.96 Estim Creat Clear Calc 79 Estimated GFR > 60 Glucose 110 POC Capillary Glucose 135 H 118 H Calcium 8.4 Phosphorus 2.7 Magnesium 1.7 Total Bilirubin 0.5 AST 27 ALT 16 Alkaline Phosphatase 64 Total Protein 7.0 Albumin 3.9 10/02/24 12:26 WBC RBC Hgb Hct MCV MCH MCHC RDW Plt Count MPV Immature Gran % (Auto) Neut % (Auto) Lymph % (Auto) [place] % (Auto) Eos % (Auto) Baso % (Auto) Lymph # (Auto) [place] # (Auto) Eos # (Auto) Baso # (Auto) Abs Immat Gran (auto) Absolute Neuts (auto) Absolute Nucleated RBC Nucleated RBC % Sodium Potassium Chloride Carbon Dioxide Anion Gap BUN Creatinine Estim Creat Clear Calc Estimated GFR Glucose POC Capillary Glucose 103 Calcium Phosphorus Magnesium Total Bilirubin AST ALT Alkaline Phosphatase Total Protein Albumin Quality VTE Prophylaxis VTE prophylaxis: pharmacologic ordered
[2024-10-02 18:45] LABS: Glucose Point of Care 101 mg/dl (65-105)
[2024-10-02] MEDS: dexmedeTOMIDine 400 MCG/100 ML 400 MCG/100 ML BAG 11.35 MCG IV CONT (18:47)
[2024-10-02 23:23] LABS: Glucose Point of Care 102 mg/dl (65-105)
[2024-10-03] VITALS (22 sets, daily range): BP systolic 133–166; BP diastolic 67–81; PULSE 49–102; RESP 13–27; TEMP 36.6–36.9; O2SAT 92–100
[2024-10-03] MEDS: dexmedeTOMIDine 400 MCG/100 ML 400 MCG/100 ML BAG 11.35 MCG IV CONT (00:27)
[2024-10-03] MEDS: metroNIDAZOLE 500 MG/ISO 100ML 500 MG/100 ML BAG 100 MG IVPB (02:36)
[2024-10-03 04:32] LABS: Basophils Absolute Auto 0.1 K/mm3 (0.0-0.1); Basophils Percent Auto 0.8 % (0.2-1.2); Eosinophils Absolute Auto 0.3 K/mm3 (0-0.3); Eosinophils Percent Auto 3.3 % (0-4.4); Hematocrit 39.1 % (42.0-52.0); Immature Granulocyte Absolute 0.03 K/mm3 (0.00-0.031); Immature Granulocyte Percent A 0.3 % (0-0.5); Lymphocytes Percent Auto 18.3 % (18.3-44.2); Mean Corpuscular HGB Conc 33.2 g/dl (32-36); Mean Corpuscular Hemoglobin 30.4 pg (26-34); Mean Corpuscular Volume 91.6 fl (80-100); Monocytes Absolute Auto 0.9 K/mm3 (0.1-0.6); Monocytes Percent Auto 10.7 % (2.6-8.5); Neutrophils Absolute Auto 5.8 K/mm3 (1.3-6.7); Neutrophils Percent Auto 66.6 % (45.5-73.1); Platelet Count Result 266 k/mm3 (150-375); Red Blood Count 4.27 M/mm3 (4.6-6.20); Red Cell Distribution Width 14.4 % (11.5-14.5); White Blood Count 8.8 K/mm3 (4.5-10.0)
[2024-10-03 04:44] LABS: Alanine Aminotransferase 18 U/L (6-50); Albumin Level 3.8 g/dL (3.5-5.1); Alkaline Phosphatase 66 U/L (38-126); Anion Gap 19 mmol/L (4-12); Aspartate Amino Transferase 27 U/L (17-59); Bilirubin,Total 0.4 mg/dL (0.2-1.3); Blood Urea Nitrogen 13 mg/dL (9-20); Calcium 8.1 mg/dL (8.4-10.2); Carbon Dioxide 14 mmol/L (22-30); Chloride 104 mmol/L (98-107); Estimated CRCL calculation 86 ml/min; Estimated Glomerular Filt Rate > 60; Glucose 92 mg/dL (65-110); Magnesium 1.8 mg/dL (1.6-2.3); Phosphorus 2.5 mg/dL (2.5-4.5); Potassium 3.9 mmol/L (3.4-5.0); Sodium 137 mmol/L (137-145)
[2024-10-03] MEDS: AZITHROMYCIN 500 MG/NS 250 ML 500 MG/250 ML BAG 250 MG IVPB (05:20)
[2024-10-03] MEDS: SODIUM BICARBONATE 8.4% 50 MEQ/50 ML SYRINGE IV PUSH (07:36)
[2024-10-03] MEDS: levETIRAcetam 1000MG/NACL100ML 1,000 MG/100 ML BAG 400 MG IVPB ×2 (07:48→20:53)
[2024-10-03] MEDS: ASPIRIN 300 MG SUPPOSITORY 150 MG RECTAL (07:52)
[2024-10-03] MEDS: PANTOPRAZOLE SODIUM IV 40 MG VIAL IV PUSH (07:52)
[2024-10-03] MEDS: ENOXAPARIN 40 MG/0.4 ML SYRINGE SUB-Q (07:52)
[2024-10-03] MEDS: SODIUM BICARBONATE 8.4% 150 MEQ in DEXTROSE 5% 1,000 ML 950 ML 75 MEQ IV CONT (08:00)
--- NOTE | 2024-10-03 08:36 | P.PNINT_ITS ---
Progress Note: A&P Assessment and Plan (1) Acute encephalopathy: Code(s): G93.40 - Encephalopathy, unspecified Status: Acute Assessment and Plan: Patient presented with altered mental status, fall On the evening of 09/28, patient had moved delirium, agitation, combativeness, was placed in 4 point restraints. Patient was transferred to the ICU for possible Precedex infusion. -repeat CT scan of the brain upon arrival to the ICU: Hypodensity in the medial aspect of the left temporal lobe and occipital lobe which is highly suggestive of acute infarct. 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 Old infarct in the right cerebellar hemisphere. -patient started on rectal aspirin. Unable to take p.o. statin as he is NPO for now due to altered mental status -appreciate Neurology evaluation recommendation, -continue neuro check per protocol -maintain adequate blood pressures-allow permissive hypertension -unable to do MRI as patient would not stay still, are pumps for Precedex infusion cannot go into the MRI suite -10/01: EE. Moderate diffuse background slowing suggestive of generalized encephalopathy 2. Focal sharp wave activity was noted over the right central temporoparietal areas. This is however considered nonspecific focal interictal abnormality should be clinically correlated. No electrographic seizures were seen -will have speech therapy evaluate the patient for bedside swallow test 09/27: CT brain: No acute intracranial finding 09/27: Chest x-ray shows left lower lobe atelectasis versus pneumonia 09/28: CT cervical spine: No fracture or subluxation of the cervical spine 09/28: CTA head and neck: Exam somewhat suboptimal due to motion artifact. No large vessel occlusion. 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 (2) Acute kidney injury: Code(s): N17.9 - Acute kidney failure, unspecified Status: Acute Assessment and Plan: Acute kidney injury could be related to hypovolemia, patient was adequately fluid-resuscitated -urine output has been adequate -creatinine has normalized -continue IV fluids -monitor urine output, renal function electrolytes (3) Hypertension: Qualifiers: Hypertension type: primary hypertension Qualified Code(s): I10 - Essential (primary) hypertension Code(s): I10 - Essential (primary) hypertension Status: Acute Assessment and Plan: Hold all antihypertensives since patient acute stroke, will allow permissive hypertension (4) ILANA on CPAP: Code(s): G47.33 - Obstructive sleep apnea (adult) (pediatric) Status: Chronic Assessment and Plan: Obstructive sleep apnea on CPAP at night -if patient has altered mental status with avoid CPAP mask (5) Pneumonia: Qualifiers: Laterality: left Lung location: lower lobe of lung Pneumonia type: due to unspecified organism Qualified Code(s): J18.9 - Pneumonia, unspecified organism Code(s): J18.9 - Pneumonia, unspecified organism Status: Acute Assessment and Plan: Chest x-ray on admission showed left lower lobe atelectasis versus pneumonia -could be related to aspiration pneumonitis -continue azithromycin, ceftriaxone (09/28) -continue Flagyl (09/29) (6) Type 2 diabetes mellitus: Qualifiers: Diabetes mellitus joint terminal attack controller insulin use: with joint terminal attack controller use Diabetes mellitus complication status: with circulatory complication Diabetes mellitus complication detail: with other circulatory complications Qualified Code(s): E11.59 - Type 2 diabetes mellitus with other circulatory complications; 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 Moderate diffuse background slowing suggestive of generalized encephalopathy 2. Focal sharp wave activity was noted over the right central temporoparietal areas. This is however considered nonspecific focal interictal abnormality should be clinically correlated. No electrographic seizures were seen (8) Electrolyte imbalance: Code(s): E87.8 - Other disorders of electrolyte and fluid balance, not elsewhere classified Status: Acute Assessment and Plan: Will replace magnesium Plan DVT prophylaxis: Enoxaparin Stress ulcer prophylaxis: Protonix Nutrition: NPO, patient may require NG tube, speech therapy to evaluate for bedside swallow Code Status: Full code Critical Care Time Spent: 31 minutes 10/01: Discussed at length with patient's spouse Shahrzad, updated with patient's condition and plan of care. I also discussed with her regarding the new stroke seen on CT scan of the brain. I also discussed at length the patient has been declining at home and in the hospital, she stated she will discuss with her son and decide about hospice as she wants him to come home. Due to a high probability of clinically significant, life threatening deterioration, the patient required my highest level of preparedness to intervene emergently and I personally spent this critical care time directly and personally managing the patient. This critical care time included obtaining a history; examining the patient; pulse oximetry; ordering and review of studies; arranging urgent treatment with development of a management plan; evaluation of patient's response to treatment; frequent reassessment; and discussions with other providers. It was exclusive of separately billable procedures and treating other patients and teaching time. Please see Assessment and Plan section and the rest of the note for further information on patient assessment and treatment This dictation may have been done utilizing a voice recognition system. Attempts have been made to correct errors. However, there may be uncorrected grammatical, spelling, and recognitions errors present. Subjective Date/time seen: 10/03/24 08:36 Interval history: Reason for consult: Acute ischemic stroke, delirium, agitation, combative behavior 64yo male with DM, seizure disorder, CVA, kidney stones, HTN, CAD s/p stent placement and CABG, ILANA, former smoker who presented to the hospital with altered mental status and fall. 10/03/2024: Patient seen and examined the ICU, remains on Precedex infusion. Patient is awake, opens his eyes, nods to questions, follows simple commands in all extremities. Unable to carry out a full conversation, seems to be confused. Afebrile, urine output has been adequate, hemodynamically stable Review of Systems Review of Systems: ROS unobtainable: Yes unobtainable due to medical condition and unobtainable due to mental status Exam Narrative: General: Laying in bed comfortably, in no acute distress HEENT:? Pupils equal and reactive, sclera is clear Neck:? Supple Respiratory:? Clear to auscultation bilaterally, decreased at bases bilaterally with no wheezing, adequate air entry Cardiac:? S1-S2 normal, regular rate and rhythm Abdomen:? Soft, non tender, non distended, normoactive bowels Extremities:? Normal tone in upper and lower extremities, palpable pedal pulses, no edema Neuro:? Patient is awake, opens eyes to name, follows simple commands in all extremities 1 nods to question Skin:? Warm and dry Psych:? Unable to assess at this time Objective Data Vital Signs Vital Signs: Vital Signs - 24 hr 10/02/24 09:29 10/02/24 09:29 10/02/24 09:59 Temperature Pulse Rate 55 L 55 L 55 L Respiratory Rate 17 17 17 Blood Pressure Pulse Oximetry Oxygen Delivery Fraction of Inspired Oxygen 10/02/24 10:00 10/02/24 10:00 10/02/24 12:00 Temperature Pulse Rate 53 L 53 L 53 L Respiratory Rate 17 16 Blood Pressure 135/73 Pulse Oximetry 96 97 Oxygen Delivery Room Air Fraction of Inspired Oxygen 10/02/24 12:00 10/02/24 12:00 10/02/24 14:00 Temperature Pulse Rate 53 L 53 L 54 L Respiratory Rate 16 Blood Pressure 120/66 Pulse Oximetry 96 Oxygen Delivery Fraction of Inspired Oxygen 10/02/24 14:00 10/02/24 16:00 10/02/24 16:00 Temperature Pulse Rate 53 L 61 61 Respiratory Rate 18 16 Blood Pressure 136/79 131/76 Pulse Oximetry 98 98 Oxygen Delivery Fraction of Inspired Oxygen 10/02/24 16:00 10/02/24 18:00 10/02/24 18:00 Temperature Pulse Rate 51 L 54 L 54 L Respiratory Rate 17 13 Blood Pressure 142/79 H Pulse Oximetry 98 98 Oxygen Delivery Room Air Fraction of Inspired Oxygen 10/02/24 18:12 10/02/24 18:47 10/02/24 20:00 Temperature 97.8 F Pulse Rate 54 L 59 L 62 Respiratory Rate 12 12 19 Blood Pressure 124/75 Pulse Oximetry 97 Oxygen Delivery Fraction of Inspired Oxygen 10/02/24 20:00 10/02/24 20:00 10/02/24 20:40 Temperature Pulse Rate 54 L 50 L 62 Respiratory Rate 16 19 Blood Pressure Pulse Oximetry 97 Oxygen Delivery Room Air Fraction of Inspired Oxygen 10/02/24 22:00 10/02/24 22:00 10/02/24 22:31 Temperature Pulse Rate 55 L 55 L Respiratory Rate 13 Blood Pressure 151/72 H Pulse Oximetry 99 98 Oxygen Delivery Room Air Fraction of Inspired Oxygen 21 10/02/24 23:40 10/03/24 00:00 10/03/24 00:00 Temperature 98 F Pulse Rate 55 L 55 L 55 L Respiratory Rate 14 14 Blood Pressure 152/75 H Pulse Oximetry 99 98 Oxygen Delivery Room Air Fraction of Inspired Oxygen 21 10/03/24 00:27 10/03/24 00:27 10/03/24 02:00 Temperature Pulse Rate 59 L 58 L 62 Respiratory Rate 18 18 Blood Pressure Pulse Oximetry Oxygen Delivery Fraction of Inspired Oxygen 10/03/24 02:00 10/03/24 02:00 10/03/24 02:38 Temperature Pulse Rate 62 60 57 L Respiratory Rate 14 15 13 Blood Pressure 153/78 H Pulse Oximetry 99 Oxygen Delivery Fraction of Inspired Oxygen 10/03/24 03:48 10/03/24 04:00 10/03/24 04:00 Temperature 97.9 F Pulse Rate 67 60 60 Respiratory Rate 17 18 Blood Pressure 143/76 H Pulse Oximetry 99 99 Oxygen Delivery Room Air Fraction of Inspired Oxygen 21 10/03/24 04:00 10/03/24 06:00 10/03/24 06:00 Temperature Pulse Rate 65 53 L 56 L Respiratory Rate 19 15 Blood Pressure 133/77 Pulse Oximetry 100 Oxygen Delivery Fraction of Inspired Oxygen 10/03/24 06:00 10/03/24 06:58 10/03/24 08:00 Temperature 97.9 F Pulse Rate 55 L 53 L 49 L Respiratory Rate 15 19 15 Blood Pressure 166/78 H Pulse Oximetry 99 Oxygen Delivery Fraction of Inspired Oxygen 10/03/24 08:03 Temperature Pulse Rate 49 L Respiratory Rate 14 Blood Pressure Pulse Oximetry Oxygen Delivery Fraction of Inspired Oxygen Intake/Output Intake/Output: Intake & Output 09/30/24 10/01/24 10/02/24 10/03/24 23:59 23:59 23:59 23:59 Intake Total 2958.0 3204.4 2373.0 578.8 Output Total 2150 5 1600 900 Balance 808.0 1179.4 773.0 -321.2 Meds/Results Medications: Active Medications Generic Name Dose Route Start Last Admin Trade Name Freq PRN Reason Stop Dose Admin Acetaminophen 650 mg 09/28/24 17:51 Acetaminophen 325 Mg Tablet PO Q4H PRN Mild Pain (1-3) or Fever Aspirin 150 mg 09/29/24 09:00 10/03/24 07:52 Aspirin 300 Mg Suppository RECTAL 150 mg DAILY LEAH Administration Dextrose 12.5 gm 09/28/24 17:37 Dextrose 50% 25 Gm/50 Ml Syringe IV PUSH PRN PRN Hypoglycemia Protocol Enoxaparin Sodium 40 mg 09/29/24 09:00 10/03/24 07:52 Enoxaparin 40 Mg/0.4 Ml Syringe SUB-Q 40 mg DAILY LEAH Administration Glucagon 1 mg 09/28/24 17:37 Glucagon For Inj 1 Mg Vial IM PRN PRN Hypoglycemia Protocol Glucose 15 gm 09/28/24 17:37 Glucose Oral Gel 15 Gm Of Glucse In 37.5 Gm Tube PO PRN PRN Hypoglycemia Protocol Hydralazine HCl 10 mg 09/30/24 07:38 Hydralazine Hcl 20 Mg/Ml Vial IV PUSH Q4H PRN Blood Pressure - High Dextrose 1,000 mls @ 100 mls/hr 09/28/24 17:37 Dextrose 5% 1,000 Ml IVPB PRN PRN Hypoglycemia Protocol Dexmedetomidine HCl 400 mcg in 100 mls @ 6.81 mls/hr 09/29/24 12:55 10/03/24 08:03 Precedex 400 Mcg/100 Ml IV CONT 0.3 mcg/kg/hr .[id number] LEAH 6.81 mls/hr Titration Protocol 0.3 MCG/KG/HR Levetiracetam 1,000 mg in 100 mls @ 400 mls/hr 10/01/24 21:00 10/03/24 07:48 Keppra Iv IVPB 400 mls/hr Q12HR LEAH Administration Sodium Bicarbonate 150 meq/ 1,100 mls @ 75 mls/hr 10/03/24 07:45 10/03/24 08:00 Dextrose IV CONT 75 mls/hr .[id number] LEAH Administration Insulin Aspart 3 - 6 units 09/28/24 18:00 10/03/24 05:38 Insulin Aspart (*Bkc) 100 Units/Ml SUB-Q Not Given Q6HR LEAH Protocol Nitroglycerin 0.4 mg 09/30/24 17:50 09/30/24 18:00 Nitroglycerin Sl 0.4 Mg Tablet SUBLINGUAL 0.4 mg Q5MIN PRN Administration Chest Pain Ondansetron HCl 4 mg 09/28/24 17:51 Ondansetron Inj 4 Mg/2 Ml Vial IV PUSH Q6H PRN Nausea And Vomiting Pantoprazole Sodium 40 mg 09/30/24 09:00 10/03/24 07:52 Pantoprazole Sodium Iv 40 Mg Vial IV PUSH 40 mg QAM LEAH Administration Radiology Results: ITS Impressions Chest X-Ray 09/27/24 23:37 IMPRESSION: Left lower lobe atelectasis versus pneumonia. Cervical Spine CT 09/28/24 05:41 Impression: No fracture or subluxation of the cervical spine. Head/Neck CTA 09/28/24 05:42 Impression: Exam somewhat suboptimal due to motion artifact. No large vessel occlusion. There are probable moderate to high-grade stenoses in the cavernous portions of the distal internal carotid arteries related to atherosclerotic calcification. 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 Head CT 09/28/24 23:16 IMPRESSION: Hypodensity in the medial aspect of the left temporal lobe and occipital lobe which is highly suggestive of acute infarct. MRI evaluation advised. 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 Old infarct in the right cerebellar hemisphere. Carotid Doppler Study 09/29/24 12:29 Impression: Limited evaluation. Within the limitations of the examination, no sonographic evidence of flow-limiting stenosis in carotid arteries. Labs Labs: Laboratory Results - last 24 hr 10/02/24 10/02/24 10/02/24 12:26 18:43 23:21 WBC RBC Hgb Hct MCV MCH MCHC RDW Plt Count MPV Immature Gran % (Auto) Neut % (Auto) Lymph % (Auto) [place] % (Auto) Eos % (Auto) Baso % (Auto) Lymph # (Auto) [place] # (Auto) Eos # (Auto) Baso # (Auto) Abs Immat Gran (auto) Absolute Neuts (auto) Absolute Nucleated RBC Nucleated RBC % Sodium Potassium Chloride Carbon Dioxide Anion Gap BUN Creatinine Estim Creat Clear Calc Estimated GFR Glucose POC Capillary Glucose 103 101 102 Calcium Phosphorus Magnesium Total Bilirubin AST ALT Alkaline Phosphatase Total Protein Albumin 10/03/24 04:27 WBC 8.8 RBC 4.27 L Hgb 13.0 L Hct 39.1 L MCV 91.6 MCH 30.4 MCHC 33.2 RDW 14.4 Plt Count 266 MPV 11.0 H Immature Gran % (Auto) 0.3 Neut % (Auto) 66.6 Lymph % (Auto) 18.3 [place] % (Auto) 10.7 H Eos % (Auto) 3.3 Baso % (Auto) 0.8 Lymph # (Auto) 1.60 [place] # (Auto) 0.9 H Eos # (Auto) 0.3 Baso # (Auto) 0.1 Abs Immat Gran (auto) 0.03 Absolute Neuts (auto) 5.8 Absolute Nucleated RBC 0.000 Nucleated RBC % 0.0 Sodium 137 Potassium 3.9 Chloride 104 Carbon Dioxide 14 L Anion Gap 19 H BUN 13 Creatinine 0.87 Estim Creat Clear Calc 86 Estimated GFR > 60 Glucose 92 POC Capillary Glucose Calcium 8.1 L Phosphorus 2.5 Magnesium 1.8 Total Bilirubin 0.4 AST 27 ALT 18 Alkaline Phosphatase 66 Total Protein 7.0 Albumin 3.8 Quality VTE Prophylaxis VTE prophylaxis: pharmacologic ordered
[2024-10-03] MEDS: dexmedeTOMIDine 400 MCG/100 ML 400 MCG/100 ML BAG 6.81 MCG IV CONT (09:02)
[2024-10-03] MEDS: MAGNESIUM SULF 2 GM/WATER 50ML 2 GM/50 ML BAG IVPB (09:04)
--- NOTE | 2024-10-03 10:58 | PCSTNOTE ---
Please refer to the Bedside Swallow Evaluation in the EMR. Please note, silent aspiration cannot be ruled out at bedside. The patient admitted with AMS/new CVA with a h/o old CVA, seizure d/o, and DM? 2 was seen by speech therapy for a bedside swallow evaluation. The patient was seen in bed; the bed was inclined as high as possible, and pillows were used to prop the patient up for an optimal eating position. Before testing, the patient was asleep but awoke in response to verbal stim; the patient was generally groggy during testing but did follow simple directives with demonstration.? Pt did not verbally respond to any questions and only spoke x1 during the entire session which was jargon. The pt was presented with 3ml thin liquid, 3 trials of approximately 3/4 tsp amounts of pudding, 2 trials of crumbled cracker mixed with pudding, 3ml mildly thick and 3-4 ml of moderately thick liquids all via a spoon. ?With all liquids and pudding, the oral stages were WFL with no leakage, residual, or pocketing. Oral residue was exhibited after the cracker trial but was eventually cleared. Pt appeared to have a timely pharyngeal reflex, but immediate cough occurred after the swallows of thin liquid and moderately thick liquids; delayed cough occurred after the mildly thick liquids suggestive of possible reduced laryngeal elevation and closure. Impressions: Questionable degree of dysphagia and due to the overt s/s of aspiration, i.e. coughing, a modified barium swallow is recommended in order to further evaluate the swallow to determine a safe diet and appropriate POC. NPO until MBS.
[2024-10-03 11:49] LABS: Glucose Point of Care 103 mg/dl (65-105)
--- NOTE | 2024-10-03 12:16 | PCFNICU ---
ICU Rounding Note: Pt current nutrition is DBCC/Soft and Bite Sized, Level 6. Last recorded weight is 95.2 kg, stable Bowel Motility: Last reported BM 09/30. Labs Reviewed: Hct 39.1, Hgb 13.0 Meds Noted: Lovenox, Keppra, Rocephin, Flagyl. Skin: DM ulcer-right 3rd toe and right heel. Additional Notes: Patient had MBS today. Speech recommending soft and bite sized, level 6. Discussions in rounds regarding hospice care for home. Agree with diet orders. Following daily in ICU rounds. Will monitor weight , labs, skin, diet orders, meds every 3 days.
--- NOTE | 2024-10-03 13:13 | PCSTNOTE ---
Please refer to the Modified Barium Swallow Evaluation in the EMR. Pt was seen for an MBS due to overt s/s of aspiration exhibited during the bedside swallow evaluation. The pt was more alert and was conversing; confusion was shown, but no jargon. Pt was seated for a lateral view and presented with 5ml of thin liquid via a spoon, pudding consistency barium via a spoon, a cracker coated with barium pudding via a spoon, and uncontrolled thin liquid barium. This was presented via a straw. Cup trials were not tested due to pt starting to become less cooperative. Oral preparatory and oral phase symptoms: none. Pharyngeal phase symptoms: trace vallecular residue but with an independent dry swallow, it was cleared. No laryngeal penetration or aspiration occurred. Impression: functional swallow Recommendations: Level 6 soft and bite size diet with regular liquids. Thank you for this referral.
[2024-10-03] MEDS: POLYMYXIN EACH EYE (16:06)
[2024-10-03] MEDS: GRAMICIDIN EACH EYE (16:06)
[2024-10-03] MEDS: NEOMYCIN EACH EYE (16:06)
[2024-10-03 17:10] LABS: Glucose Point of Care 91 mg/dl (65-105)
--- NOTE | 2024-10-03 17:10 | P.PNIM_ITS ---
Progress Note: A&P Assessment and Plan (1) Acute encephalopathy: Code(s): G93.40 - Encephalopathy, unspecified Status: Acute Assessment and Plan: Patient presented with altered mental status and fall. VBG 7.42/42/27 on 1L. Cr 1.32, serum bicarb 18 (AG 16), Lactic 3.6, PCT 0.1 and elevated Trop. UDS negative. Head CT showing old CVAs but no acute process. Cervical spine CT showing no fracture or subluxation. 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 Patient was admitted but on the evening of 09/28, he had delirium, agitation, co mbativeness, was placed in 4 point restraints. Patient was transferred to the ICU for possible Precedex infusion. Repeat Head CT showing a hypodensity in the medial aspect of the left temporal lobe and occipital lobe which is highly suggestive of acute infarct. Consider acute CVA. Consider seizure given the elevated lactic and other findings. Brain MR results pending Patient started on rectal aspirin. Unable to take p.o. statin as he is NPO for now due to altered mental status Neurology has been consulted Precedex started and calmer now. Wean off Precedex as tolerated. Monitor closely in ICU (2) Acute kidney injury: Code(s): N17.9 - Acute kidney failure, unspecified Status: Acute Assessment and Plan: Patient with a mild [place]. Cr 1.32 on admission. [place] related to hypovolemia. Patient was adequately fluid-resuscitated. Cr normal now. Monitor urine output, renal function and electrolytes (3) Pneumonia: Qualifiers: Laterality: left Lung location: lower lobe of lung Pneumonia type: due to unspecified organism Qualified Code(s): J18.9 - Pneumonia, unspecified organism Code(s): J18.9 - Pneumonia, unspecified organism Status: Acute Assessment and Plan: Chest x-ray on admission showed left lower lobe atelectasis versus pneumonia Could be related to aspiration pneumonitis Started on azithromycin, ceftriaxone (09/28) Flagyl added (09/29) On RA (4) Hypertension: Qualifiers: Hypertension type: primary hypertension Qualified Code(s): I10 - Essential (primary) hypertension Code(s): I10 - Essential (primary) hypertension Status: Acute Assessment and Plan: Hold all antihypertensives since patient acute stroke Allow for permissive hypertension (5) ILANA on CPAP: Code(s): G47.33 - Obstructive sleep apnea (adult) (pediatric) Status: Chronic Assessment and Plan: Obstructive sleep apnea on CPAP at night Hold off on CPAP until patient is more awake and alert. VBG noted. 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 Continue AccuCheks covering with sliding scale. Hypoglycemia protocol available as needed. Continue to monitor (7) Seizure disorder: Code(s): G40.909 - Epilepsy, unspecified, not intractable, without status epilepticus Status: Acute Assessment and Plan: Consider seizure prior to admission. Patient takes carbamazepine 200 mg PO Q 8 hours at home Currently NPO Keppra IV started Follow. Seizure precautions. Plan today patient still remains on Precedex, still confused and restrained, he failed bedside swallow study, today patient had MBS study and he passed, comfortable and stable, family is considering hospice for the patient, patient is seen by sales operations manager and appreciate. Subjective Date/time seen: 10/03/24 17:10 Interval history: 64yo male with DM, seizure disorder, CVA, kidney stones, HTN, CAD s/p stent placement and CABG, ILANA, former smoker who presented to the hospital with altered mental status and fall. Patient awake but not alert and remains confused. Per RN, he is combative and hallucinating at times. He remains on precedex today patient still remains on Precedex, still confused and restrained, he failed bedside swallow study, today patient had MBS study and he passed, co mfortable and stable, family is considering hospice for the patient, patient is seen by sales operations manager and appreciate. Review of Systems Review of Systems: ROS unobtainable: Yes unobtainable due to medical condition and unobtainable due to mental status Exam Narrative: Patient is comfortable, NAD HEENT: eyes are clear and none icteric LUNGS:CTA HEART: RR S1S2 ABD: BS+, Soft and nontender Lower extremities: no edema upper and lower extremities soft restrains. SKIN: nonjaundiced Neuro: grossly intact but confused. Objective Data Vital Signs Vital Signs: Vital Signs - 24 hr 10/02/24 18:00 10/02/24 18:00 10/02/24 18:12 Temperature Pulse Rate 54 L 54 L 54 L Respiratory Rate 13 12 Blood Pressure 142/79 H Pulse Oximetry 98 Oxygen Delivery Fraction of Inspired Oxygen 10/02/24 18:47 10/02/24 20:00 10/02/24 20:00 Temperature 36.6 C Pulse Rate 59 L 62 54 L Respiratory Rate 12 19 16 Blood Pressure 124/75 Pulse Oximetry 97 Oxygen Delivery Fraction of Inspired Oxygen 10/02/24 20:00 10/02/24 20:40 10/02/24 22:00 Temperature Pulse Rate 50 L 62 55 L Respiratory Rate 19 Blood Pressure Pulse Oximetry 97 Oxygen Delivery Room Air Fraction of Inspired Oxygen 21 10/02/24 22:00 10/02/24 22:31 10/02/24 23:40 Temperature Pulse Rate 55 L 55 L Respiratory Rate 13 14 Blood Pressure 151/72 H Pulse Oximetry 99 98 99 Oxygen Delivery Room Air Room Air Fraction of Inspired Oxygen 21 21 10/03/24 00:00 10/03/24 00:00 10/03/24 00:27 Temperature 36.6 C Pulse Rate 55 L 55 L 59 L Respiratory Rate 14 18 Blood Pressure 152/75 H Pulse Oximetry 98 Oxygen Delivery Fraction of Inspired Oxygen 10/03/24 00:27 10/03/24 02:00 10/03/24 02:00 Temperature Pulse Rate 58 L 62 62 Respiratory Rate 18 14 Blood Pressure 153/78 H Pulse Oximetry 99 Oxygen Delivery Fraction of Inspired Oxygen 10/03/24 02:00 10/03/24 02:38 10/03/24 03:48 Temperature Pulse Rate 60 57 L 67 Respiratory Rate 15 13 17 Blood Pressure Pulse Oximetry 99 Oxygen Delivery Room Air Fraction of Inspired Oxygen 21 10/03/24 04:00 10/03/24 04:00 10/03/24 04:00 Temperature 36.6 C Pulse Rate 60 60 65 Respiratory Rate 18 19 Blood Pressure 143/76 H Pulse Oximetry 99 Oxygen Delivery Fraction of Inspired Oxygen 10/03/24 06:00 10/03/24 06:00 10/03/24 06:00 Temperature Pulse Rate 53 L 56 L 55 L Respiratory Rate 15 15 Blood Pressure 133/77 Pulse Oximetry 100 Oxygen Delivery Fraction of Inspired Oxygen 10/03/24 06:58 10/03/24 08:00 10/03/24 08:00 Temperature 36.6 C Pulse Rate 53 L 49 L Respiratory Rate 19 15 Blood Pressure 166/78 H Pulse Oximetry 99 99 Oxygen Delivery Room Air Fraction of Inspired Oxygen 21 10/03/24 08:00 10/03/24 08:03 10/03/24 09:02 Temperature Pulse Rate 50 L 49 L 58 L Respiratory Rate 14 14 Blood Pressure Pulse Oximetry Oxygen Delivery Fraction of Inspired Oxygen 10/03/24 09:02 10/03/24 10:00 10/03/24 10:00 Temperature Pulse Rate 58 L 69 69 Respiratory Rate 14 15 Blood Pressure 140/81 Pulse Oximetry 99 Oxygen Delivery Fraction of Inspired Oxygen 10/03/24 10:00 10/03/24 11:30 10/03/24 12:00 Temperature Pulse Rate 69 69 Respiratory Rate 15 14 Blood Pressure Pulse Oximetry 96 Oxygen Delivery Room Air Fraction of Inspired Oxygen 21 10/03/24 12:00 10/03/24 12:00 10/03/24 13:30 Temperature 36.9 C Pulse Rate 77 83 102 H Respiratory Rate 15 18 Blood Pressure 143/72 H Pulse Oximetry 98 Oxygen Delivery Fraction of Inspired Oxygen 10/03/24 14:00 10/03/24 14:00 10/03/24 15:26 Temperature Pulse Rate 92 92 97 Respiratory Rate 17 17 Blood Pressure 158/75 H Pulse Oximetry 97 Oxygen Delivery Fraction of Inspired Oxygen 10/03/24 16:00 10/03/24 16:00 Temperature Pulse Rate 90 92 Respiratory Rate 22 H 19 Blood Pressure 154/67 H Pulse Oximetry 93 Oxygen Delivery Fraction of Inspired Oxygen Intake/Output Intake/Output: Intake & Output 09/30/24 10/01/24 10/02/24 10/03/24 23:59 23:59 23:59 23:59 Intake Total 2958.0 3204.4 2373.0 701.5 Output Total 2150 5 1600 900 Balance 808.0 1179.4 773.0 -198.5 Meds/Results Medications: Active Medications Generic Name Dose Route Start Last Admin Trade Name Freq PRN Reason Stop Dose Admin Acetaminophen 650 mg 09/28/24 17:51 Acetaminophen 325 Mg Tablet PO Q4H PRN Mild Pain (1-3) or Fever Aspirin 150 mg 09/29/24 09:00 10/03/24 07:52 Aspirin 300 Mg Suppository RECTAL 150 mg DAILY LEAH Administration Dextrose 12.5 gm 09/28/24 17:37 Dextrose 50% 25 Gm/50 Ml Syringe IV PUSH PRN PRN Hypoglycemia Protocol Enoxaparin Sodium 40 mg 09/29/24 09:00 10/03/24 07:52 Enoxaparin 40 Mg/0.4 Ml Syringe SUB-Q 40 mg DAILY LEAH Administration Glucagon 1 mg 09/28/24 17:37 Glucagon For Inj 1 Mg Vial IM PRN PRN Hypoglycemia Protocol Glucose 15 gm 09/28/24 17:37 Glucose Oral Gel 15 Gm Of Glucse In 37.5 Gm Tube PO PRN PRN Hypoglycemia Protocol Hydralazine HCl 10 mg 09/30/24 07:38 Hydralazine Hcl 20 Mg/Ml Vial IV PUSH Q4H PRN Blood Pressure - High Dextrose 1,000 mls @ 100 mls/hr 09/28/24 17:37 Dextrose 5% 1,000 Ml IVPB PRN PRN Hypoglycemia Protocol Dexmedetomidine HCl 400 mcg in 100 mls @ 4.54 mls/hr 09/29/24 12:55 10/03/24 16:00 Precedex 400 Mcg/100 Ml IV CONT 0.2 mcg/kg/hr .Q22H2M LEAH 4.54 mls/hr Titration Protocol 0.2 MCG/KG/HR Levetiracetam 1,000 mg in 100 mls @ 400 mls/hr 10/01/24 21:00 10/03/24 09:07 Keppra Iv IVPB Infused Q12HR LEAH Infusion Sodium Bicarbonate 150 meq/ 1,100 mls @ 75 mls/hr 10/03/24 07:45 10/03/24 08:00 Dextrose IV CONT 75 mls/hr .[id number] LEAH Administration Insulin Aspart 3 - 6 units 09/28/24 18:00 10/03/24 12:03 Insulin Aspart (*Bkc) 100 Units/Ml SUB-Q Not Given Q6HR LEAH Protocol Neomycin/Polymyxin/Gramicidin 1 drop 10/03/24 14:13 10/03/24 16:06 Neomycin/Polymyxin/Gramicidin (*Bkc) 10 Ml Bottle EACH EYE 10/06/24 14:12 1 drop Q6H PRN Administration red eye Nitroglycerin 0.4 mg 09/30/24 17:50 09/30/24 18:00 Nitroglycerin Sl 0.4 Mg Tablet SUBLINGUAL 0.4 mg Q5MIN PRN Administration Chest Pain Ondansetron HCl 4 mg 09/28/24 17:51 Ondansetron Inj 4 Mg/2 Ml Vial IV PUSH Q6H PRN Nausea And Vomiting Pantoprazole Sodium 40 mg 09/30/24 09:00 10/03/24 07:52 Pantoprazole Sodium Iv 40 Mg Vial IV PUSH 40 mg QAM LEAH Administration Radiology Results: ITS Impressions Chest X-Ray 09/27/24 23:37 IMPRESSION: Left lower lobe atelectasis versus pneumonia. Cervical Spine CT 09/28/24 05:41 Impression: No fracture or subluxation of the cervical spine. Head/Neck CTA 09/28/24 05:42 Impression: Exam somewhat suboptimal due to motion artifact. No large vessel occlusion. There are probable moderate to high-grade stenoses in the cavernous portions of the distal internal carotid arteries related to atherosclerotic calcification. 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 Head CT 09/28/24 23:16 IMPRESSION: Hypodensity in the medial aspect of the left temporal lobe and occipital lobe which is highly suggestive of acute infarct. MRI evaluation advised. 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 Old infarct in the right cerebellar hemisphere. Carotid Doppler Study 09/29/24 12:29 Impression: Limited evaluation. Within the limitations of the examination, no sonographic evidence of flow-limiting stenosis in carotid arteries. Modified Barium Swallow 10/03/24 11:48 IMPRESSION: Patient tolerated regular consistency oral feedings in the upright position. Please correlate with speech pathologist findings and specific feeding recommendations. Labs Labs: Laboratory Results - last 24 hr 10/02/24 10/02/24 10/03/24 18:43 23:21 04:27 WBC 8.8 RBC 4.27 L Hgb 13.0 L Hct 39.1 L MCV 91.6 MCH 30.4 MCHC 33.2 RDW 14.4 Plt Count 266 MPV 11.0 H Immature Gran % (Auto) 0.3 Neut % (Auto) 66.6 Lymph % (Auto) 18.3 [place] % (Auto) 10.7 H Eos % (Auto) 3.3 Baso % (Auto) 0.8 Lymph # (Auto) 1.60 [place] # (Auto) 0.9 H Eos # (Auto) 0.3 Baso # (Auto) 0.1 Abs Immat Gran (auto) 0.03 Absolute Neuts (auto) 5.8 Absolute Nucleated RBC 0.000 Nucleated RBC % 0.0 Sodium 137 Potassium 3.9 Chloride 104 Carbon Dioxide 14 L Anion Gap 19 H BUN 13 Creatinine 0.87 Estim Creat Clear Calc 86 Estimated GFR > 60 Glucose 92 POC Capillary Glucose 101 102 Calcium 8.1 L Phosphorus 2.5 Magnesium 1.8 Total Bilirubin 0.4 AST 27 ALT 18 Alkaline Phosphatase 66 Total Protein 7.0 Albumin 3.8 10/03/24 11:47 WBC RBC Hgb Hct MCV MCH MCHC RDW Plt Count MPV Immature Gran % (Auto) Neut % (Auto) Lymph % (Auto) [place] % (Auto) Eos % (Auto) Baso % (Auto) Lymph # (Auto) [place] # (Auto) Eos # (Auto) Baso # (Auto) Abs Immat Gran (auto) Absolute Neuts (auto) Absolute Nucleated RBC Nucleated RBC % Sodium Potassium Chloride Carbon Dioxide Anion Gap BUN Creatinine Estim Creat Clear Calc Estimated GFR Glucose POC Capillary Glucose 103 Calcium Phosphorus Magnesium Total Bilirubin AST ALT Alkaline Phosphatase Total Protein Albumin Quality VTE Prophylaxis VTE prophylaxis: pharmacologic ordered
[2024-10-04] VITALS (11 sets, daily range): BP systolic 140–155; BP diastolic 72–90; PULSE 77–95; RESP 14–22; TEMP 36.8–37.3; O2SAT 91–95
[2024-10-04] MEDS: SODIUM BICARBONATE 8.4% 150 MEQ in DEXTROSE 5% 1,000 ML 950 ML 75 MEQ IV CONT (00:15)
[2024-10-04 00:32] LABS: Glucose Point of Care 148 mg/dl (65-105)
[2024-10-04 04:45] LABS: Basophils Percent Auto 0.3 % (0.2-1.2); Eosinophils Absolute Auto 0.1 K/mm3 (0-0.3); Eosinophils Percent Auto 0.8 % (0-4.4); Hematocrit 38.3 % (42.0-52.0); Hemoglobin 12.9 g/dL (14.0-18.0); Immature Granulocyte Absolute 0.06 K/mm3 (0.00-0.031); Immature Granulocyte Percent A 0.4 % (0-0.5); Lymphocytes Absolute Auto 1.32 K/mm3 (0.9-3.2); Lymphocytes Percent Auto 9.6 % (18.3-44.2); Mean Corpuscular HGB Conc 33.7 g/dl (32-36); Mean Corpuscular Hemoglobin 30.4 pg (26-34); Mean Corpuscular Volume 90.1 fl (80-100); Mean Platelet Volume 10.8 fl (7.4-10.4); Monocytes Absolute Auto 1.4 K/mm3 (0.1-0.6); Monocytes Percent Auto 9.8 % (2.6-8.5); Neutrophils Absolute Auto 10.9 K/mm3 (1.3-6.7); Neutrophils Percent Auto 79.1 % (45.5-73.1); Platelet Count Result 282 k/mm3 (150-375); Red Blood Count 4.25 M/mm3 (4.6-6.20); Red Cell Distribution Width 14.7 % (11.5-14.5); White Blood Count 13.7 K/mm3 (4.5-10.0)
[2024-10-04 05:00] LABS: Alanine Aminotransferase 18 U/L (6-50); Albumin Level 3.7 g/dL (3.5-5.1); Alkaline Phosphatase 65 U/L (38-126); Anion Gap 15 mmol/L (4-12); Aspartate Amino Transferase 30 U/L (17-59); Bilirubin,Total 0.6 mg/dL (0.2-1.3); Blood Urea Nitrogen 9 mg/dL (9-20); Calcium 8.2 mg/dL (8.4-10.2); Carbon Dioxide 20 mmol/L (22-30); Chloride 102 mmol/L (98-107); Estimated CRCL calculation 95 ml/min; Estimated Glomerular Filt Rate > 60; Glucose 120 mg/dL (65-110); Magnesium 1.8 mg/dL (1.6-2.3); Phosphorus 2.1 mg/dL (2.5-4.5); Potassium 3.7 mmol/L (3.4-5.0); Sodium 137 mmol/L (137-145)
[2024-10-04] MEDS: SODIUM BICARBONATE 8.4% 150 MEQ in DEXTROSE 5% 1,000 ML 950 ML 50 MEQ IV CONT (07:40)
--- NOTE | 2024-10-04 08:22 | WPDINTPN ---
Progress Note: A&P Assessment and Plan (1) Acute encephalopathy: Code(s): G93.40 - Encephalopathy, unspecified Status: Acute Assessment and Plan: Patient presented with altered mental status, fall On the evening of 09/28, patient had moved delirium, agitation, combativeness, was placed in 4 point restraints. Patient was transferred to the ICU for possible Precedex infusion. -repeat CT scan of the brain upon arrival to the ICU: Hypodensity in the medial aspect of the left temporal lobe and occipital lobe which is highly suggestive of acute infarct. 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 Old infarct in the right cerebellar hemisphere. -patient started on rectal aspirin. Unable to take p.o. statin as he is NPO for now due to altered mental status -appreciate Neurology evaluation recommendation, -continue neuro check per protocol -maintain adequate blood pressures-allow permissive hypertension -unable to do MRI as patient would not stay still, are pumps for Precedex infusion cannot go into the MRI suite -10/01: EE. Moderate diffuse background slowing suggestive of generalized encephalopathy 2. Focal sharp wave activity was noted over the right central temporoparietal areas. This is however considered nonspecific focal interictal abnormality should be clinically correlated. No electrographic seizures were seen -patient did pass his modified swallowing test, okay with thin liquids and level 6 diet, soft and bite sized -remains on Precedex infusion, will transition to Seroquel since patient is not taking p.o., this will help discontinue Precedex 09/27: CT brain: No acute intracranial finding 09/27: Chest x-ray shows left lower lobe atelectasis versus pneumonia 09/28: CT cervical spine: No fracture or subluxation of the cervical spine 09/28: CTA head and neck: Exam somewhat suboptimal due to motion artifact. No large vessel occlusion. 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 (2) Acute kidney injury: Code(s): N17.9 - Acute kidney failure, unspecified Status: Acute Assessment and Plan: Acute kidney injury could be related to hypovolemia, patient was adequately fluid-resuscitated -urine output has been adequate -creatinine has normalized -continue IV fluids -monitor urine output, renal function electrolytes (3) Hypertension: Qualifiers: Hypertension type: primary hypertension Qualified Code(s): I10 - Essential (primary) hypertension Code(s): I10 - Essential (primary) hypertension Status: Acute Assessment and Plan: Hold all antihypertensives since patient acute stroke, will allow permissive hypertension (4) ILANA on CPAP: Code(s): G47.33 - Obstructive sleep apnea (adult) (pediatric) Status: Chronic Assessment and Plan: Obstructive sleep apnea on CPAP at night -if patient has altered mental status with avoid CPAP mask (5) Pneumonia: Qualifiers: Laterality: left Lung location: lower lobe of lung Pneumonia type: due to unspecified organism Qualified Code(s): J18.9 - Pneumonia, unspecified organism Code(s): J18.9 - Pneumonia, unspecified organism Status: Acute Assessment and Plan: Chest x-ray on admission showed left lower lobe atelectasis versus pneumonia -could be related to aspiration pneumonitis -completed a 5 day course of azithromycin, ceftriaxone and Flagyl for possible aspiration pneumonitis/pneumonia (6) Type 2 diabetes mellitus: Qualifiers: Diabetes mellitus senior care insulin use: with remote computer terminal operator use Diabetes mellitus complication status: with circulatory complication Diabetes mellitus complication detail: with other circulatory complications Qualified Code(s): E11.59 - Type 2 diabetes mellitus with other circulatory complications; Z79.4 - remote computer terminal operator (current) use of insulin Code(s): E11.9 - Type 2 diabetes mellitus without complications Status: Acute Assessment and Plan: Continue Accu-Cheks and sliding scale insulin (7) Seizure disorder: Code(s): G40.909 - Epilepsy, unspecified, not intractable, without status epilepticus Status: Acute Assessment and Plan: Patient takes carbamazepine 200 mg PO Q 8 hours at home -currently NPO, -10/01: Increased Keppra to 1000 mg q.12 hours -neurology follow -10/01: EE. Moderate diffuse background slowing suggestive of generalized encephalopathy 2. Focal sharp wave activity was noted over the right central temporoparietal areas. This is however considered nonspecific focal interictal abnormality should be clinically correlated. No electrographic seizures were seen (8) Electrolyte imbalance: Code(s): E87.8 - Other disorders of electrolyte and fluid balance, not elsewhere classified Status: Acute Assessment and Plan: Will replace magnesium Plan DVT prophylaxis: Enoxaparin Stress ulcer prophylaxis: Protonix Nutrition: Continue level 6 diet, soft and bite size, diabetic consistent diet Code Status: Full code Critical Care Time Spent: 31 minutes Patient is scheduled to go home on hospice today 10/01: Discussed at length with patient's spouse Shahrzad, updated with patient's condition and plan of care. I also discussed with her regarding the new stroke seen on CT scan of the brain. I also discussed at length the patient has been declining at home and in the hospital, she stated she will discuss with her son and decide about hospice as she wants him to come home. Due to a high probability of clinically significant, life threatening deterioration, the patient required my highest level of preparedness to intervene emergently and I personally spent this critical care time directly and personally managing the patient. This critical care time included obtaining a history; examining the patient; pulse oximetry; ordering and review of studies; arranging urgent treatment with development of a management plan; evaluation of patient's response to treatment; frequent reassessment; and discussions with other providers. It was exclusive of separately billable procedures and treating other patients and teaching time. Please see Assessment and Plan section and the rest of the note for further information on patient assessment and treatment This dictation may have been done utilizing a voice recognition system. Attempts have been made to correct errors. However, there may be uncorrected grammatical, spelling, and recognitions errors present. Subjective Date/time seen: 10/04/24 08:22 Interval history: Reason for consult: Acute ischemic stroke, delirium, agitation, combative behavior 64yo male with DM, seizure disorder, CVA, kidney stones, HTN, CAD s/p stent placement and CABG, ILANA, former smoker who presented to the hospital with altered mental status and fall. 10/04/2024: Patient seen and examined the ICU, remains on Precedex infusion. Patient is awake, opens his eyes, answers with yes and no to simple questions, follows simple commands in all extremities. Patient has been tolerating his diet. Afebrile, urine output has been adequate, hemodynamically stable Review of Systems Review of Systems: ROS unobtainable: Yes unobtainable due to medical condition and unobtainable due to mental status Exam Narrative: General: Laying in bed comfortably, in no acute distress HEENT:? Pupils equal and reactive, sclera is clear Neck:? Supple Respiratory:? Clear to auscultation bilaterally, decreased at bases bilaterally with no wheezing, adequate air entry Cardiac:? S1-S2 normal, regular rate and rhythm Abdomen:? Soft, non tender, non distended, normoactive bowels Extremities:? Normal tone in upper and lower extremities, palpable pedal pulses, no edema Neuro:? Patient is awake, eyes are open, patient answers to yes and no to simple questions, follows simple commands in all extremities Skin:? Warm and dry Psych:? Unable to assess at this time Objective Data Vital Signs Vital Signs: Vital Signs - 24 hr 10/03/24 09:02 10/03/24 09:02 10/03/24 10:00 Temperature Pulse Rate 58 L 58 L 69 Respiratory Rate 14 14 Blood Pressure Pulse Oximetry Oxygen Delivery Fraction of Inspired Oxygen 10/03/24 10:00 10/03/24 10:00 10/03/24 11:30 Temperature Pulse Rate 69 69 69 Respiratory Rate 15 15 14 Blood Pressure 140/81 Pulse Oximetry 99 Oxygen Delivery Fraction of Inspired Oxygen 10/03/24 12:00 10/03/24 12:00 10/03/24 12:00 Temperature 98.4 F Pulse Rate 77 83 Respiratory Rate 15 Blood Pressure 143/72 H Pulse Oximetry 96 98 Oxygen Delivery Room Air Fraction of Inspired Oxygen 21 10/03/24 13:30 10/03/24 14:00 10/03/24 14:00 Temperature Pulse Rate 102 H 92 92 Respiratory Rate 18 17 Blood Pressure 158/75 H Pulse Oximetry 97 Oxygen Delivery Fraction of Inspired Oxygen 10/03/24 15:26 10/03/24 16:00 10/03/24 16:00 Temperature Pulse Rate 97 90 92 Respiratory Rate 17 22 H 19 Blood Pressure 154/67 H Pulse Oximetry 93 Oxygen Delivery Fraction of Inspired Oxygen 10/03/24 16:00 10/03/24 16:00 10/03/24 18:00 Temperature Pulse Rate 90 92 Respiratory Rate Blood Pressure Pulse Oximetry 93 Oxygen Delivery Room Air Fraction of Inspired Oxygen 21 10/03/24 18:00 10/03/24 18:00 10/03/24 20:00 Temperature 98.2 F Pulse Rate 92 92 86 Respiratory Rate 23 H 23 H 27 H Blood Pressure 137/73 145/78 H Pulse Oximetry 92 92 Oxygen Delivery Fraction of Inspired Oxygen 10/03/24 20:00 10/03/24 20:00 10/03/24 20:45 Temperature Pulse Rate 88 88 92 Respiratory Rate 25 H 23 H Blood Pressure Pulse Oximetry 92 Oxygen Delivery Room Air Fraction of Inspired Oxygen 21 10/03/24 22:00 10/03/24 22:00 10/03/24 22:00 Temperature Pulse Rate 79 79 78 Respiratory Rate 20 20 Blood Pressure 143/77 H Pulse Oximetry 95 Oxygen Delivery Fraction of Inspired Oxygen 10/04/24 00:00 10/04/24 00:00 10/04/24 00:00 Temperature 98.8 F Pulse Rate 81 81 81 Respiratory Rate 20 19 19 Blood Pressure 144/82 H Pulse Oximetry 95 95 Oxygen Delivery Room Air Fraction of Inspired Oxygen 21 10/04/24 00:00 10/04/24 02:00 10/04/24 02:00 Temperature Pulse Rate 80 83 82 Respiratory Rate 14 Blood Pressure 155/76 H Pulse Oximetry 95 Oxygen Delivery Fraction of Inspired Oxygen 10/04/24 02:00 10/04/24 04:00 10/04/24 04:00 Temperature 98.7 F Pulse Rate 79 82 83 Respiratory Rate 18 16 19 Blood Pressure 155/76 H Pulse Oximetry 94 Oxygen Delivery Fraction of Inspired Oxygen 10/04/24 04:00 10/04/24 04:30 10/04/24 04:30 Temperature Pulse Rate 82 84 Respiratory Rate 19 Blood Pressure Pulse Oximetry 94 94 Oxygen Delivery Room Air Room Air Fraction of Inspired Oxygen 21 21 10/04/24 06:00 10/04/24 06:00 10/04/24 06:00 Temperature Pulse Rate 83 83 82 Respiratory Rate 20 18 Blood Pressure 155/76 H Pulse Oximetry 94 Oxygen Delivery Fraction of Inspired Oxygen 10/04/24 07:26 10/04/24 08:00 Temperature 99.1 F Pulse Rate 77 Respiratory Rate 17 Blood Pressure 143/82 H Pulse Oximetry 93 Oxygen Delivery Fraction of Inspired Oxygen Intake/Output Intake/Output: Intake & Output 10/01/24 10/02/24 10/03/24 10/04/24 23:59 23:59 23:59 23:59 Intake Total 3204.4 2373.0 2641.3 86.4 Output Total 2025 1600 1600 1400 Balance 1179.4 773.0 1041.3 -1313.6 Meds/Results Medications: Active Medications Generic Name Dose Route Start Last Admin Trade Name Freq PRN Reason Stop Dose Admin Acetaminophen 650 mg 09/28/24 17:51 Acetaminophen 325 Mg Tablet PO Q4H PRN Mild Pain (1-3) or Fever Aspirin 150 mg 09/29/24 09:00 10/03/24 07:52 Aspirin 300 Mg Suppository RECTAL 150 mg DAILY LEAH Administration Dextrose 12.5 gm 09/28/24 17:37 Dextrose 50% 25 Gm/50 Ml Syringe IV PUSH PRN PRN Hypoglycemia Protocol Enoxaparin Sodium 40 mg 09/29/24 09:00 10/03/24 07:52 Enoxaparin 40 Mg/0.4 Ml Syringe SUB-Q 40 mg DAILY LEAH Administration Glucagon 1 mg 09/28/24 17:37 Glucagon For Inj 1 Mg Vial IM PRN PRN Hypoglycemia Protocol Glucose 15 gm 09/28/24 17:37 Glucose Oral Gel 15 Gm Of Glucse In 37.5 Gm Tube PO PRN PRN Hypoglycemia Protocol Hydralazine HCl 10 mg 09/30/24 07:38 Hydralazine Hcl 20 Mg/Ml Vial IV PUSH Q4H PRN Blood Pressure - High Dextrose 1,000 mls @ 100 mls/hr 09/28/24 17:37 Dextrose 5% 1,000 Ml IVPB PRN PRN Hypoglycemia Protocol Dexmedetomidine HCl 400 mcg in 100 mls @ 4.54 mls/hr 09/29/24 12:55 10/04/24 06:00 Precedex 400 Mcg/100 Ml IV CONT 0.2 mcg/kg/hr .Q22H2M LEAH 4.54 mls/hr Titration Protocol 0.2 MCG/KG/HR Levetiracetam 1,000 mg in 100 mls @ 400 mls/hr 10/01/24 21:00 10/03/24 20:53 Keppra Iv IVPB 400 mls/hr Q12HR LEAH Administration Sodium Bicarbonate 150 meq/ 1,100 mls @ 50 mls/hr 10/04/24 08:00 10/04/24 07:40 Dextrose IV CONT 10/04/24 17:59 50 mls/hr .Q22H LEAH Administration Potassium Phosphate 20 mmol/ 256.6667 mls @ 64.167 mls/hr 10/04/24 09:00 Sodium Chloride IVPB 10/04/24 12:59 ONCE ONE Insulin Aspart 3 - 6 units 09/28/24 18:00 10/04/24 05:52 Insulin Aspart (*Bkc) 100 Units/Ml SUB-Q Not Given Q6HR [facility] Protocol Neomycin/Polymyxin/Gramicidin 1 drop 10/03/24 14:13 10/03/24 16:06 Neomycin/Polymyxin/Gramicidin (*Bkc) 10 Ml Bottle EACH EYE 10/06/24 14:12 1 drop Q6H PRN Administration red eye Nitroglycerin 0.4 mg 09/30/24 17:50 09/30/24 18:00 Nitroglycerin Sl 0.4 Mg Tablet SUBLINGUAL 0.4 mg Q5MIN PRN Administration Chest Pain Ondansetron HCl 4 mg 09/28/24 17:51 Ondansetron Inj 4 Mg/2 Ml Vial IV PUSH Q6H PRN Nausea And Vomiting Pantoprazole Sodium 40 mg 09/30/24 09:00 10/03/24 07:52 Pantoprazole Sodium Iv 40 Mg Vial IV PUSH 40 mg QAM [facility] Administration Quetiapine Fumarate 12.5 mg 10/04/24 09:00 Quetiapine Fumarate 12.5 Mg Tablet PO QAM [facility] Radiology Results: ITS Impressions Chest X-Ray 09/27/24 23:37 IMPRESSION: Left lower lobe atelectasis versus pneumonia. Cervical Spine CT 09/28/24 05:41 Impression: No fracture or subluxation of the cervical spine. Head/Neck CTA 09/28/24 05:42 Impression: Exam somewhat suboptimal due to motion artifact. No large vessel occlusion. There are probable moderate to high-grade stenoses in the cavernous portions of the distal internal carotid arteries related to atherosclerotic calcification. 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 Head CT 09/28/24 23:16 IMPRESSION: Hypodensity in the medial aspect of the left temporal lobe and occipital lobe which is highly suggestive of acute infarct. MRI evaluation advised. 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 Old infarct in the right cerebellar hemisphere. Carotid Doppler Study 09/29/24 12:29 Impression: Limited evaluation. Within the limitations of the examination, no sonographic evidence of flow-limiting stenosis in carotid arteries. Modified Barium Swallow 10/03/24 11:48 IMPRESSION: Patient tolerated regular consistency oral feedings in the upright position. Please correlate with speech pathologist findings and specific feeding recommendations. Labs Labs: Laboratory Results - last 24 hr 10/03/24 10/03/24 10/04/24 11:47 17:08 00:27 WBC RBC Hgb Hct MCV MCH MCHC RDW Plt Count MPV Immature Gran % (Auto) Neut % (Auto) Lymph % (Auto) [place] % (Auto) Eos % (Auto) Baso % (Auto) Lymph # (Auto) [place] # (Auto) Eos # (Auto) Baso # (Auto) Abs Immat Gran (auto) Absolute Neuts (auto) Absolute Nucleated RBC Nucleated RBC % Sodium Potassium Chloride Carbon Dioxide Anion Gap BUN Creatinine Estim Creat Clear Calc Estimated GFR Glucose POC Capillary Glucose 103 91 148 H Calcium Phosphorus Magnesium Total Bilirubin AST ALT Alkaline Phosphatase Total Protein Albumin 10/04/24 04:36 WBC 13.7 H RBC 4.25 L Hgb 12.9 L Hct 38.3 L MCV 90.1 MCH 30.4 MCHC 33.7 RDW 14.7 H Plt Count 282 MPV 10.8 H Immature Gran % (Auto) 0.4 Neut % (Auto) 79.1 H Lymph % (Auto) 9.6 L [place] % (Auto) 9.8 H Eos % (Auto) 0.8 Baso % (Auto) 0.3 Lymph # (Auto) 1.32 [place] # (Auto) 1.4 H Eos # (Auto) 0.1 Baso # (Auto) 0.0 Abs Immat Gran (auto) 0.06 H Absolute Neuts (auto) 10.9 H Absolute Nucleated RBC 0.000 Nucleated RBC % 0.0 Sodium 137 Potassium 3.7 Chloride 102 Carbon Dioxide 20 L Anion Gap 15 H BUN 9 Creatinine 0.79 Estim Creat Clear Calc 95 Estimated GFR > 60 Glucose 120 H POC Capillary Glucose Calcium 8.2 L Phosphorus 2.1 L Magnesium 1.8 Total Bilirubin 0.6 AST 30 ALT 18 Alkaline Phosphatase 65 Total Protein 7.0 Albumin 3.7 Quality VTE Prophylaxis VTE prophylaxis: pharmacologic ordered
[2024-10-04] MEDS: QUEtiapine FUMARATE 12.5 MG TABLET PO (08:25)
[2024-10-04] MEDS: levETIRAcetam 1000MG/NACL100ML 1,000 MG/100 ML BAG 400 MG IVPB (08:27)
[2024-10-04] MEDS: ASPIRIN 300 MG SUPPOSITORY 150 MG RECTAL (08:27)
[2024-10-04] MEDS: PANTOPRAZOLE SODIUM IV 40 MG VIAL IV PUSH (08:27)
[2024-10-04] MEDS: ENOXAPARIN 40 MG/0.4 ML SYRINGE SUB-Q (08:27)
[2024-10-04] MEDS: POTASSIUM PHOS,M-BASIC-D-BASIC 20 MMOL in SODIUM CHLORIDE 0.9% IV 250 ML 64.17 MMOL IVPB (08:33)
[2024-10-04] MEDS: SODIUM BICARBONATE TAB 325 MG TABLET PO (08:38)
[2024-10-04] MEDS: MAGNESIUM SULF 2 GM/WATER 50ML 2 GM/50 ML BAG IVPB (08:39)
--- NOTE | 2024-10-04 11:11 | PCFNICU ---
ICU Rounding Note: Pt current nutrition is Diabetic consistent carb diet. Nutrition recommendation: Oral nutrition supplement: Glucerna TID (220 kcal, 10 g protein) Last recorded weight is 95.5 kg. Bowel Motility: Last BM 09/30 Labs Reviewed: Hgb 12.9, Hct 38.3 Meds Noted: Keppra Skin: No pressure injuries Additional Notes: Pt will go home on hospice today. Adding nutritional supplements as intakes are very poor, bites only. Following daily in ICU rounds. Will monitor weight , labs, skin, diet orders, meds every 3 days. .
[2024-10-04 12:25] LABS: Glucose Point of Care 101 mg/dl (65-105)
--- NOTE | 2024-10-04 12:43 | PM.DS ---
DS: Admitting Diagnosis Discharge Date 10/04/24 Admitting Diagnosis AMS DS: Discharge Diagnosis Discharge Diagnosis (1) Acute metabolic encephalopathy: Code(s): G93.41 - Metabolic encephalopathy Status: Acute (2) Acute kidney injury: Code(s): N17.9 - Acute kidney failure, unspecified Status: Acute (3) Pneumonia: Qualifiers: Laterality: left Lung location: lower lobe of lung Pneumonia type: due to unspecified organism Qualified Code(s): J18.9 - Pneumonia, unspecified organism Code(s): J18.9 - Pneumonia, unspecified organism Status: Acute (4) ILANA on CPAP: Code(s): G47.33 - Obstructive sleep apnea (adult) (pediatric) Status: Chronic (5) Type 2 diabetes mellitus: Qualifiers: Diabetes mellitus prison insulin use: with prison use Diabetes mellitus complication status: with circulatory complication Diabetes mellitus complication detail: with other circulatory complications Qualified Code(s): E11.59 - Type 2 diabetes mellitus with other circulatory complications; Z79.4 - longterm (current) use of insulin Code(s): E11.9 - Type 2 diabetes mellitus without complications Status: Acute DS: Summary Hospital Course Hospital Course: patient still remains on Precedex, still confused and restrained, he failed bedside swallow study, today patient had MBS study and he passed, comfortable and stable, family is considering hospice for the patient, patient is seen by cutter operator brick and appreciate. family has decided hospice care for the patient, will discharge home where he will be admitted under hospice care. Time Spent with Patient Time attestation: Total time spent providing and/or coordinating discharge services: Exam Narrative: Patient is comfortable, NAD HEENT: eyes are clear and none icteric LUNGS:CTA HEART: RR S1S2 ABD: BS+, Soft and nontender Lower extremities: no edema SKIN: nonjaundiced Neuro: grossly intact. DS: Data Data Completed and Pending Labs on day of discharge: Labs from last 24 hours 10/04/24 10/04/24 10/04/24 12:23 04:36 00:27 WBC 13.7 H RBC 4.25 L Hgb 12.9 L Hct 38.3 L MCV 90.1 MCH 30.4 MCHC 33.7 RDW 14.7 H Plt Count 282 MPV 10.8 H Immature Gran % (Auto) 0.4 Neut % (Auto) 79.1 H Lymph % (Auto) 9.6 L [place] % (Auto) 9.8 H Eos % (Auto) 0.8 Baso % (Auto) 0.3 Lymph # (Auto) 1.32 [place] # (Auto) 1.4 H Eos # (Auto) 0.1 Baso # (Auto) 0.0 Abs Immat Gran (auto) 0.06 H Absolute Neuts (auto) 10.9 H Absolute Nucleated RBC 0.000 Nucleated RBC % 0.0 Sodium 137 Potassium 3.7 Chloride 102 Carbon Dioxide 20 L Anion Gap 15 H BUN 9 Creatinine 0.79 Estim Creat Clear Calc 95 Estimated GFR > 60 Glucose 120 H POC Capillary Glucose 101 148 H Calcium 8.2 L Phosphorus 2.1 L Magnesium 1.8 Total Bilirubin 0.6 AST 30 ALT 18 Alkaline Phosphatase 65 Total Protein 7.0 Albumin 3.7 10/03/24 17:08 WBC RBC Hgb Hct MCV MCH MCHC RDW Plt Count MPV Immature Gran % (Auto) Neut % (Auto) Lymph % (Auto) [place] % (Auto) Eos % (Auto) Baso % (Auto) Lymph # (Auto) [place] # (Auto) Eos # (Auto) Baso # (Auto) Abs Immat Gran (auto) Absolute Neuts (auto) Absolute Nucleated RBC Nucleated RBC % Sodium Potassium Chloride Carbon Dioxide Anion Gap BUN Creatinine Estim Creat Clear Calc Estimated GFR Glucose POC Capillary Glucose 91 Calcium Phosphorus Magnesium Total Bilirubin AST ALT Alkaline Phosphatase Total Protein Albumin Discharge Plan Discharge Attending physician on discharge: Hannah Neely Consulting providers: Karthikeyan Davidson; Obed Hanson; Ed Vee; Cole Roland; Carlos Byrne; Marek Glover Zuhair M.; Asif Wallace; Aroldo [place] Discharging Clinician: Hannah Neely Patient Disposition: Hospice - Home Activity: as tolerated Diet: as tolerated Discharge Instructions: patient is being discharged home and will be admitted into hospice at home Patient Language: Danish Stand Alone Forms: General Discharge Information Follow-up/Referrals: Evangelina Lazo DO [Primary Care Provider] - Discharge Medications: Continued (DME) OneTouch Verio test strips Strip See Rx Instructions .ROUTE .MEDSUPPLY Qty: 100 0RF Rx Instructions: Check glucose 1-2 times a day (DME) blood-glucose meter [OneTouch Verio Flex Start] Kit See Rx Instructions .Route Qty: 1 0RF Rx Instructions: As directed (DME) lancets [OneTouch Delica Plus Lancet] 33 gauge misc See Rx Instructions .ROUTE .MEDSUPPLY Qty: 100 0RF Rx Instructions: Check glucose 1-2 Jardiance 25 mg tablet 25 mg PO DAILY Qty: 90 1RF Gvoke HypoPen 2-Pack 1 mg/0.2 mL auto-injector 1 mg subcut ONCE Qty: 0.4 4RF Rx Instructions: may repeat once after 15 minutes if no response aspirin [Adult Aspirin Regimen] 81 mg tablet,delayed release (DR/EC) 81 mg PO DAILY Qty: 90 4RF Jardiance 25 mg tablet 25 mg PO DAILY carvedilol [Coreg] 3.125 mg tablet 3.125 mg PO Q12H insulin glargine [Lantus Solostar U-100 Insulin] 100 unit/mL (3 mL) insulin pen 45 unit SUBCUT DAILY atorvastatin [Lipitor] 40 mg tablet 40 mg PO DAILY Qty: 90 1RF fenofibrate 160 mg tablet 160 mg PO DAILY Qty: 90 1RF famotidine 40 mg tablet 40 mg PO DAILY Qty: 90 1RF carbamazepine 200 mg tablet 200 mg PO Q8HR Qty: 90 1RF lisinopril [Zestril] 5 mg tablet 5 mg PO DAILY Qty: 90 0RF Date of admission: 09/29/24 14:05 Primary Care Provider: Evangelina Lazo Admitting Provider: Marek Glover Attending physician on admission: Jeffrey Tran Condition: Stable
--- NOTE | 2024-10-05 06:52 | P.CDI_ITS ---
CDI Query Clarification Request 1) Encephalopathy has been documented. Please clarify type of encephalopathy: * Metabolic * Toxic * Hepatic * Hypertensive * Other * Unable to Determine 2) Please clarify if acute CVA has been ruled in or ruled out. The medical chart reflects the following: (1) Acute encephalopathy: Code(s): G93.40 - Encephalopathy, unspecified Status: Acute Assessment and Plan: Patient presented with altered mental status, fall On the evening of 09/28, patient had moved delirium, agitation, combativeness, was placed in 4 point restraints. Patient was transferred to the ICU for possible Precedex infusion. -repeat CT scan of the brain upon arrival to the ICU: Hypodensity in the medial aspect of the left temporal lobe and occipital lobe which is highly suggestive of acute infarct. 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 Old infarct in the right cerebellar hemisphere. -patient started on rectal aspirin. Unable to take p.o. statin as he is NPO for now due to altered mental status -appreciate Neurology evaluation recommendation, -continue neuro check per protocol -maintain adequate blood pressures-allow permissive hypertension -unable to do MRI as patient would not stay still, are pumps for Precedex infusion cannot go into the MRI suite -10/01: EE. Moderate diffuse background slowing suggestive of generalized encephalopathy 2. Focal sharp wave activity was noted over the right central temporoparietal areas. This is however considered nonspecific focal interictal abnormality should be clinically correlated. No electrographic seizures were seen -patient did pass his modified swallowing test, okay with thin liquids and level 6 diet, soft and bite sized -remains on Precedex infusion, will transition to Seroquel since patient is not taking p.o., this will help discontinue Precedex 09/27: CT brain: No acute intracranial finding 09/27: Chest x-ray shows left lower lobe atelectasis versus pneumonia 09/28: CT cervical spine: No fracture or subluxation of the cervical spine 09/28: CTA head and neck: Exam somewhat suboptimal due to motion artifact. No large vessel occlusion. 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 Head CT 09/28: IMPRESSION: Hypodensity in the medial aspect of the left temporal lobe and occipital lobe which is highly suggestive of acute infarct. MRI evaluation advised. 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 Old infarct in the right cerebellar hemisphere. <Alexa Schrader RN - Last Filed: 10/05/24 06:54> Provider Comments EEG showed generalized encephalopathy unable to determine exact cause. <Jeffrey Tran MD - Last Filed: 10/10/24 11:22>
== END 2024-10-04 15:31 | disposition hospice, home (50) | DRG 193 ==
LOC: ANHED 09-28 02:46 → ANH3MEDSUR 09-28 03:29 → ANHICU 09-28 20:54
PROVIDERS: Internal Medicine; Nurse Practitioner Acute Care; Admitting Provider Internal Medicine; Emergency Provider Emergency Medicine; PCP Family Medicine; Visit Provider Family Medicine
DX: J18.9 Pneumonia, unspecified organism (principal); G93.41 Metabolic encephalopathy; I63.9 Cerebral infarction, unspecified; N17.9 Acute kidney failure, unspecified; J44.0 Chronic obstructive pulmonary disease with (acute) lower respiratory infection; E11.9 Type 2 diabetes mellitus without complications; G47.33 Obstructive sleep apnea (adult) (pediatric); G40.909 Epilepsy, unspecified, not intractable, without status epilepticus; I25.10 Atherosclerotic heart disease of native coronary artery without angina pectoris; I10 Essential (primary) hypertension; K21.9 Gastro-esophageal reflux disease without esophagitis; W19.XXXA Unspecified fall, initial encounter; Z79.4 Long term (current) use of insulin; Z20.822 Contact with and (suspected) exposure to COVID-19; Z79.82 Long term (current) use of aspirin; Z79.84 Long term (current) use of oral hypoglycemic drugs; Z79.85 Long-term (current) use of injectable non-insulin antidiabetic drugs; Z86.73 Personal history of transient ischemic attack (TIA), and cerebral infarction without residual deficits; R47.81 Slurred speech; Z99.89 Dependence on other enabling machines and devices; Z89.412 Acquired absence of left great toe; Z89.411 Acquired absence of right great toe; Z95.1 Presence of aortocoronary bypass graft; Z95.5 Presence of coronary angioplasty implant and graft; Z87.891 Personal history of nicotine dependence; Z87.442 Personal history of urinary calculi
CPT/HCPCS: 36415; 70450; 70496; 70498; 71045; 72125; 80053; 80307; 81003; 82077; 82948; 83605; 83690; 83735; 84100; 84145; 84484; 85025; 85027; 85610; 85730; 87040; 87637; 92610; 92611; 93005; 93880; 94002; 95816; 96361; 96365; 96366; 96367; 96368; 96372; 96375; 96376; 99285; A9270; G0378; J0456; J0696; J1630; J1650; J1836; J1953; J2060; J2359; J2470; J3410; J3475; J7030; J7042; J7050; J7070; J7120; Q9967